=== PATIENT | female | born 1975 | race Caucasian/White ===

== ENCOUNTER 2021-10-26 10:59 | Outpatient (CLI) | payer MEDICARE, SELFPAY ==
[2021-10-26 11:44] LABS: Appearance Urine Clear (Clear); Bilirubin Urine Negative (Negative); Color Urine Yellow (Yellow); Glucose Urine UA 2+ mg/dL (Negative); Ketones Urine Negative (Negative); Leukocyte Esterase Ur Negative LEU/UL (NEGATIVE); Nitrate Urine Negative (Negative); Protein Urine Negative (Negative); Specific Grav Ur 1.025 (1.001-1.035); Urobilinogen Urine 0.2 mg/dL (<2.0); pH Urine 5.5 (5.0-9.0)
[2021-10-26 11:46] LABS: Mucus Urine Rare /lpf; Squamous Epithelial Cell Urine Few /hpf (Few); WBC Urine 0-3 /hpf (0-3)
[2021-10-26 11:50] LABS: Add Urine Microscopic? YES; Blood Urine Trace-Intact (Negative)
== END 2021-10-26 11:00 | disposition home or self-care (01) ==
PROVIDERS: PCP Physician Assistant; Visit Provider Physician Assistant
DX: R30.0 Dysuria (principal)
CPT/HCPCS: 81001; 87086

== ENCOUNTER 2022-04-02 20:23 | Observation (INO) | payer MEDICARE, SELFPAY ==
--- NOTE | ~2022-04-02 | US_ITS ---
EXAMINATION: US pelvic complete DATE: 04/08/2022 10:57 INDICATION: Right ovarian cyst. TECHNIQUE: Multiple transabdominal sonographic images of the pelvis were obtained. COMPARISON: CT abdomen and pelvis 04/03/2022 FINDINGS: The uterus is absent. There is no free fluid in the pelvis. The right ovary measures 5.9 x 2.5 x 2.2 cm. The left ovary measures 2.2 x 1.4 x 1.9 cm. There is a 3 .3 cm cyst in right ovary. There is normal vascular flow in the ovaries. IMPRESSION: 1. 3.3 cm cyst in right ovary, likely a follicular cyst. Reviewed, dictated and finalized at location A. LIANCE ADMINISTRATOR
--- NOTE | ~2022-04-02 | XR_ITS ---
EXAMINATION: XR chest 2V Exam Date/Time: 04/02/2022 21:20 STRATEGIC ACCOUNT EXECUTIVE HISTORY: RIGHT SIDED CHEST PAIN X 1 DAY Comparison: 11/14/2017. RESULT: Lines, tubes, and devices: Bilateral implanted ports both terminating at the cavoatrial junction. Lungs and pleura: Streaky bibasilar opacities, greater on the right, likely representing atelectasis /scar. Cardiomediastinal silhouette: Stable. Other: No acute osseous or upper abdominal finding. IMPRESSION: No acute cardiopulmonary process. Reviewed, dictated and finalized at location K. TEGIC ACCOUNT EXECUTIVE
--- NOTE | ~2022-04-02 | CT_ITS ---
EXAMINATION: CT abdomen pelvis w con DATE: 04/03/2022 02:04 INDICATION: Right chest pain, abdominal pain TECHNIQUE: Computed tomography (CT) of the abdomen and pelvis was performed with 100 CC Omnipaque 350 intravenous contrast. Automated exposure control and iterative reconstruction technique were employe d. Exam dose: 764.73 mGy-cm total exam DLP. COMPARISON: 02/10/2018 CT abdomen pelvis FINDINGS: The lung bases are clear of consolidation. Normal heart size. No pericardial or pleural eff usion. There is hepatic steatosis with minimal sparing around the gallbladder. No hepatic, splenic, pancreat ic, adrenal or renal space-occupying mass lesion is detected. There are small punctate nonobstructing lower pole left renal calculus. The gallbladder is present. No bile duct or pancreatic duct dilatation or pancreatic calcification. No ureteral calculus or hydroureteronephrosis. Approximately 2.8 cm right ovarian cyst or cystic mass. Pelvic ultrasound would be helpful for more d efinitive evaluation of the ovary. Uterus and adnexal areas are otherwise unremarkable. The urinary b ladder appears normal. Atherosclerotic calcification but normal caliber of the abdominal aorta and iliac arteries. No intrap eritoneal or retroperitoneal or pelvic mass lesion or adenopathy or ascites. Mild diverticulosis of left colon; no CT evidence of diverticulitis. No bowel obstruction or intraper itoneal free air. Very small fat-containing umbilical hernia. No suspicious osteolytic or osteoblastic lesions. IMPRESSION: Enlarged right ovary, measuring up to approximately 3.6 x 3.5 cm. Approximately 2.8 cm ri ght ovarian cystic lesion. Pelvic ultrasound would be helpful for more definitive evaluation of the r ight ovary. Diverticulosis of left colon; no CT evidence of diverticulitis Hepatic steatosis Punctate nonobstructing lower pole left renal calculus Reviewed, dictated and finalized at Location A. Reviewed, dictated and finalized at location B. TIONAL EDUCATION TEACHER IMPRESSION: Enlarged right ovary, measuring up to approximately 3.6 x 3.5 cm. A pproximately 2.8 cm right ovarian cystic lesion. Pelvic ultrasound would be hel pful for more definitive evaluation of the right ovary. Diverticulosis of left colon; no CT evidence of diverticulitis Hepatic steatosis Punctate nonobstructing lower pole left renal calculus
--- NOTE | ~2022-04-02 | XR_ITS ---
EXAM: XR Abdomen PICC DATE: 04/04/2022 16:39 HISTORY: femoral picc line placement . COMPARISON: None available. FINDINGS: Dual-lumen right femoral catheter terminating near the iliac bifurcation at the level of L 4. The lung bases are clear. Normal bowel gas pattern. Enlarged liver. Pelvic phleboliths. Degenerati ve change in the lumbar spine. IMPRESSION: Dual-lumen right femoral central line, in good position. Hepatomegaly. Reviewed, dictated and finalized at location K. IMPRESSION: Dual-lumen right femoral central line, in good position. Hepatomega ly.
[2022-04-02 20:27] VITALS: BP 140/79; PULSE 104; RESP 16; TEMP 36.4; O2SAT 98
--- NOTE | 2022-04-02 20:27 | ECG_ITS ---
Measurements Intervals [place] Rate: 96 P: 65 DC: 165 QRS: 79 QRSD: 79 T: 16 QT: 356 QTc: 451 Interpretive Statements SINUS RHYTHM NONSPECIFIC T-WAVE ABNORMALITY NO PREVIOUS ECG AVAILABLE FOR COMPARISON Electronically Signed On 04-03-2022 15:25:04 COUNTY ADMINISTRATOR by Myla Sheffield M.D.
[2022-04-02 20:52] LABS: Basophils Percent Auto 0.4 % (0.2-1.2); Eosinophils Percent Auto 0.5 % (0-4.4); Hematocrit 40.3 % (37.0-47.0); Hemoglobin 14.2 g/dL (12.0-15.0); Immature Granulocyte Absolute 0.05 K/mm3 (0.00-0.031); Immature Granulocyte Percent A 0.6 % (0-0.5); Lymphocytes Absolute Auto 2.31 K/mm3 (0.9-3.2); Lymphocytes Percent Auto 27.1 % (18.3-44.2); Mean Corpuscular HGB Conc 35.2 g/dl (32-36); Mean Corpuscular Hemoglobin 31.4 pg (26-34); Mean Corpuscular Volume 89.2 fl (80-100); Mean Platelet Volume 9.7 fl (7.4-10.4); Monocytes Absolute Auto 0.4 K/mm3 (0.1-0.6); Monocytes Percent Auto 4.9 % (2.6-8.5); Neutrophils Absolute Auto 5.7 K/mm3 (1.3-6.7); Neutrophils Percent Auto 66.5 % (45.5-73.1); Platelet Count Result 275 k/mm3 (150-375); Red Blood Count 4.52 M/mm3 (4.2-5.4); White Blood Count 8.5 K/mm3 (4.5-10.0)
[2022-04-02 21:03] LABS: INR 0.9; Partial Thromboplastin Time 38.7 SECONDS (22.3-36.8); Prothrombin Time 12.1 Seconds (11.1-14.7)
[2022-04-02 21:09] LABS: Alanine Aminotransferase 16 U/L (6-35); Albumin Level 4.7 g/dL (3.5-5.1); Alkaline Phosphatase 85 U/L (38-126); Anion Gap 13 mmol/L (8-16); Aspartate Amino Transferase 24 U/L (14-36); Bilirubin,Total 0.5 mg/dL (0.2-1.3); Blood Urea Nitrogen 15 mg/dL (7-17); Carbon Dioxide 22 mmol/L (22-30); Chloride 99 mmol/L (98-107); Estimated CRCL calculation 84 ml/min; Estimated Glomerular Filt Rate > 60; Glucose 233 mg/dL (65-110); Lipase 111 U/L (23-300); Potassium 4.2 mmol/L (3.4-5.0); Sodium 134 mmol/L (137-145)
[2022-04-02 21:21] LABS: Troponin I < 0.012 ng/mL (0.000-0.034)
[2022-04-03] VITALS (12 sets, daily range): BP systolic 106–140; BP diastolic 64–89; PULSE 70–80; RESP 12–20; TEMP 35.9–36.6; O2SAT 88–100; BMI 31.6
[2022-04-03 01:23] LABS: Troponin I < 0.012 ng/mL (0.000-0.034)
[2022-04-03] MEDS: SODIUM CHLORIDE 0.9% IV 1,000 ML 999 ML IV CONT (01:35)
[2022-04-03] MEDS: ONDANSETRON INJ 4 MG/2 ML VIAL IV PUSH ×2 (01:36→08:40)
[2022-04-03] MEDS: MORPHINE SULFATE (*CRX) 4 MG/ML INJ IV PUSH (01:36)
--- NOTE | 2022-04-03 01:39 | ED.CHESTPAIN ---
HPI - Chest Pain General Chief Complaint: Chest Pain <Natali Duval APRN - Last Filed: 04/03/22 04:37> Stated Complaint: chest pain <Natali Duval MUSIC CATALOGUER - Last Filed: 04/03/22 04:37> Time Seen by Provider: 04/03/22 00:48 <Natali Duval APRN - Last Filed: 04/03/22 04:37> Related Data Home Medications: Home Medications Medication Instructions Recorded Confirmed empagliflozin 25 mg tablet 25 mg PO DAILY 10/20/20 02/02/22 (Jardiance) metformin 500 mg tablet 1,000 mg PO BID 10/20/20 02/02/22 <Natali Duval MUSIC CATALOGUER - Last Filed: 04/03/22 04:37> Allergies/Adverse Reactions: Allergies Allergy/AdvReac Type Severity Reaction Status Date / Time adhesive tape Allergy Mild Rash Verified 04/02/22 09:39 green pepper Allergy Unknown unknown Verified 04/02/22 09:39 <Natali Duval MUSIC CATALOGUER - Last Filed: 04/03/22 04:37> [facility] Past Medical History Medical History: Medical History Allergies Anxiety Chylomicronemia syndrome Headache History of HPV infection Hyperlipemia Lipoprotein deficiency Port-A-Cath in place Thyroid disorder <Natali Duval APRN - Last Filed: 04/03/22 04:37> Surgical History Surgical History: Surgical History H/O LEEP History of conization of cervix History of dilatation and curettage History of exploratory laparotomy History of tonsillectomy S/P appendectomy S/P endometrial ablation S/P partial hysterectomy Tubal ligation status [place] teeth removed <Natali Duval APRN - Last Filed: 04/03/22 04:37> Family History Family History: Family History Other Alcohol abuse Cerebrovascular accident Heart disease History of cancer History of thyroid disorder Hypertension Kidney disorder <Natali Duval APRN - Last Filed: 04/03/22 04:37> Social History Social History: Social History (Updated 04/02/22 @ 09:48 by Jonelle Diaz [facility]) Smoking status: Current every day smoker Tobacco type: cigarettes Alcohol intake: never Substance use: never Substance use type: does not use Lack of Transportation: No Lack of Food: Never True Current Housing: I Have Housing Concerned About Future Housing: No Difficulty Paying Gas/Electric Bills: No Difficulty Paying for Meds: No Currently Unemployed: No Education: Associate Degree Difficulty w/ Childcare or Family Care: No <Natali Duval APRN - Last Filed: 04/03/22 04:37> Course CIGAR ROLLER/PA Physician Supervision I performed the substantive portion of the visit. I reviewed the CIGAR ROLLER or PA documentation, treatment plan, and medical decision making and had [id number] time with this patient. Has history of chronic pancreatitis and also extreme hyperlipidemia. Patient reports it has been sometime since she had her last plasmapheresis plasmapheresis both at [facility] back in 2017 or 2018. Also with frequently at [facility]. [facility] has been contacted for possible transfer currently there are no beds available we have placed a call out to nephrology to discuss the possibility of plasmapheresis locally Case was discussed with nephrology on-call and we are able to perform plasmapheresis locally Case was discussed again with Dr. Velázquez and the patient was accepted to the hospitalist service <Francisco Payne MD - Last Filed: 04/03/22 06:54> Reevaluation(s) Reevaluation #1: Patient still with abdominal pain rated 7/10. Aware of wait for [facility]. Patient also aware of my hospitalist recommending her to be transferred where her physician n is. Report to Dr. Payne and patient care handed over. <Natali Duval APRN - Last Filed: 04/03/22 04:37> Consultations Consultation #1: Consulted Dr. Michaels. Recommends contacting [facility] were patient gets her treatment. <Natali Duval APRN - Last Filed: 1
[2022-04-03] MEDS: HYDROmorphone HCL INJ (*CRX) 1 MG/ML SYR 0.5 MG IV PUSH (03:10)
[2022-04-03 03:30] LABS: Triglycerides 2401 mg/dL (<150)
[2022-04-03] MEDS: HYDROmorphone HCL INJ (*CRX) 1 MG/ML SYR IV PUSH ×4 (05:18→16:31)
[2022-04-03] MEDS: SODIUM CHLORIDE 0.9% IV 1,000 ML 125 ML IV CONT ×3 (07:30→23:13)
[2022-04-03 08:01] LABS: Influenza A QL RT-PCR Negative (Negative); Influenza B QL RT-PCR Negative (Negative); SARS-CoV-2 RNA PCR Negative
--- NOTE | 2022-04-03 09:37 | ADMGEN ---
This patient, Casandra Jones, was admitted to 3 [facility] Surg Room 315-01. Patient/family oriented to hospital policies and general routines including ID bracelet, bed and alarms, visiting hours, pain management, procedures, bathroom and other care routines, personal items, smoking policy, room service/diet, and visiting hours. Information on how to activate the Rapid Response Team has been discussed. Patient/Family are encouraged to report perceived risks to care and to ask questions if they do not understand what they are told or what they should do.
--- NOTE | 2022-04-03 10:35 | PM.CNNEP ---
Assessment and Plan Assessment and plan (1) Hypertriglyceridemia: Code(s): E78.1 - Pure hyperglyceridemia Status: Acute Assessment and Plan: patient has hypertriglyceridemia. Currently her levels over 2000 she is having some symptoms. I agree that plasmapheresis is indicated. There is really no other way this level comes down. I am concerned that she developed a rash after her plasmapheresis in the spring but am encouraged that EpiPen plus Benadryl seem to help. I have put a call into the plasmapheresis division at [facility] to see this specifics of what they did. I will call plasmapheresis locally and initiated treatment. (2) Acute generalized abdominal pain: Code(s): R10.84 - Generalized abdominal pain Status: Acute Assessment and Plan: The patient has abdominal discomfort. CT scan did not show any problems with the pancreas. Her lipase level is okay. Will check another lipase tomorrow. (3) Diabetes mellitus: Qualifiers: Diabetes mellitus type: type 2 Diabetes mellitus correction insulin use: without correction use Diabetes mellitus complication status: with hyperglycemia Qualified Code(s): E11.65 - Type 2 diabetes mellitus with hyperglycemia Code(s): E11.9 - Type 2 diabetes mellitus without complications Status: Acute Assessment and Plan: Management per hospitalists. (4) Tobacco use: Code(s): Z72.0 - Tobacco use Status: Acute Assessment and Plan: The patient should stop smoking History of Present Illness Reason for Consult Consult date: 04/03/22 Chief Complaint Chief complaint: Chylomicronemia Syndrome/Abdominal Pain History of Present Illness Narrative: Casandra is a very pleasant 46-year-old lady who has multiple medical problems including severe hypertriglyceridemia, recurrent pancreatitis, migraines, obesity, carpal tunnel syndrome, nephrolithiasis, diabetes, depression, anxiety, hypothyroidism. The patient is seen at [facility] by Dr. Gates for her hypertriglyceridemia. She has been getting plasmapheresis intermittently for years. In this spring she had few plasmaphereses in a row. She developed a reaction consisting of a rash and itching as well as chest pain. This is felt to be a reaction to the albumin given during the treatment. After that apparently they gave her an EpiPen shot and Benadryl and she tolerated the plasmapheresis twice more after that. she has not had any more treatments since then. She says that she gets occasional triglyceride levels and if it is above 2000 she gets a treatment. She says she feels like the levels have been rising for the last few weeks because she has had intermittent nausea with epigastric discomfort. She came to the ER today because she had chest pain and her epigastric pain was worse. This happened over the last 24-48 hours. She also has nausea with this. She has no diarrhea or constipation. She has not vomited. she says her chest pain is intermittent. It often happens along with her abdominal pain. The patient was seen in the emergency room. Labs were checked. Her cbc and electrolytes were all okay. Her lipase was normal but her triglyceride was 08/16/2000. She is being admitted. She needs plasmapheresis. Review of Systems Constitutional: Constitutional: Reports no additional constitutional complaints Eyes: Eyes: Reports no additional eye complaints ENT: Reports system reviewed and no additional complaints, except as documented Cardiovascular: Cardiovascular: Reports no additional cardiovascular complaints Respiratory: Respiratory: Reports no additional respiratory complaints Gastrointestinal: Gastrointestinal: Reports no additional gastrointestinal complaints Genitourinary: Genitourinary: Reports no additional female genitourinary complaints Musculoskeletal: Musculoskeletal: Reports no additional musculoskeletal complaints
[2022-04-03 11:26] LABS: Glucose Point of Care 162 mg/dl (65-105)
--- NOTE | 2022-04-03 11:45 | PC.NURSE ---
Na level of [address] baca
--- NOTE | 2022-04-03 13:44 | PM.IMHP ---
H&P: HPI History of Present Illness Date/Time: 04/03/22 13:44 Chief Complaint: chest pain/abdominal pain Narrative: this is a 46-year-old female who presents to the ER today with complaints of chest pain and abdominal pain that started since last night. She reports she intermittently get this symptoms on and off and reports these are mostly related to her hypertriglyceridemia. She had similar episode back in August and was in the hospital where they did the plasma pheresis. She does not recall what her triglyceride level at that time was but at the time of discharge she was down to 300s. She usually goes to [facility] for this. She has been needing plasmapheresis intermittently for several years now. His associated nausea but no vomiting. Chest pain is sharp stabbing quality in the right side of the chest also radiates to the left side of the chest at times She was evaluated in the ER her CBC was normal. CMP was normal with negative troponin. Her triglyceride level came back at 2401. Lipase was normal. Chest x-ray with no acute cardiopulmonary process. CT abdomen pelvis with enlarged right ovary measuring up to approximately 3.6 x 3.5 cm proximally 2.8 cm right ovarian cystic lesion pelvic ultrasound will be helpful for more definitive evaluation of the right ovary. There was noted diverticulosis of the left colon with no CT evidence of diverticulitis. Hepatic steatosis and punctate nonobstructing lower pole left renal calculus. It was suspected her symptoms are related to severe hyper triglyceridemia and was planned to be transferred to [facility] however no bed was available. Nephrology was contacted after that and the apheresis could be done here and hence she is getting admitted over here for further treatment.. Review of Systems Review of Systems: - CONSTITUTIONAL: Denies weight loss, fever and chills. - HEENT: Denies changes in vision and hearing - RESPIRATORY: reports some SOB and no cough. - CV: Denies palpitations and reports CP. - GI: reports abdominal pain, nausea, deniesvomiting and diarrhea. - : Denies dysuria and urinary frequency. - MSK: reports myalgia and joint pain. - SKIN: Denies rash and pruritus. - NEUROLOGICAL: reports headache and syncope. - PSYCHIATRIC: Denies recent changes in mood. Denies anxiety and depression. [facility] Past Medical History Medical History (Updated 04/03/22 @ 13:51 by Froilan Manrique MD) Allergies Anxiety Chylomicronemia syndrome Headache History of HPV infection Hyperlipemia Hypertriglyceridemia Lipoprotein deficiency Port-A-Cath in place Thyroid disorder Surgical History Surgical History H/O LEEP History of conization of cervix History of dilatation and curettage History of exploratory laparotomy History of tonsillectomy S/P appendectomy S/P endometrial ablation S/P partial hysterectomy Tubal ligation status [place] teeth removed Family History Family History Other Alcohol abuse Cerebrovascular accident Heart disease History of cancer History of thyroid disorder Hypertension Kidney disorder Social History Social History Smoking packs per day: 1 Smoking cigarettes per day: 20.0 Years smoked: 20 Smoking pack-years: 20.00 Smoking status: Current every day smoker Tobacco type: cigarettes Alcohol intake: never Substance use: never Substance use type: does not use Lack of Transportation: No Lack of Food: Never True Current Housing: I Have Housing Concerned About Future Housing: No Difficulty Paying Gas/Electric Bills: No Difficulty Paying for Meds: No Currently Unemployed: No Education: Associate Degree Difficulty w/ Childcare or Family Care: No Spiritual care concerns: No Meds Home Medications and Allergies Home Me
[2022-04-03 16:44] LABS: Glucose Point of Care 163 mg/dl (65-105)
[2022-04-03] MEDS: diphenhydrAMINE HCl INJ 50 MG/ML VIAL 25 MG IV PUSH (17:39)
[2022-04-03 23:24] LABS: Glucose Point of Care 165 mg/dl (65-105)
[2022-04-04] MEDS: HYDROmorphone HCL INJ (*CRX) 1 MG/ML SYR IV PUSH ×5 (03:54→21:08)
[2022-04-04 05:20] LABS: Glucose Point of Care 152 mg/dl (65-105)
[2022-04-04] MEDS: LEVOTHYROXINE SODIUM INJ 100 MCG/5 ML VIAL IV PUSH (05:36)
[2022-04-04 06:00] VITALS: BP 136/83; PULSE 81; RESP 14; TEMP 36.6; O2SAT 93
--- NOTE | 2022-04-04 07:04 | PM.PNNEP ---
Progress Note: A&P Assessment and Plan (1) Hypertriglyceridemia: Code(s): E78.1 - Pure hyperglyceridemia Status: Acute Assessment and Plan: patient has hypertriglyceridemia. Currently her levels over 1999 she is having some symptoms. I agree that plasmapheresis is indicated. she has 2 power port. This is what the use for the plasmapheresis. Unfortunately she did not go to have these flushed on a monthly basis to [facility]. Therefore the plasmapheresis unit will not use these unless they were checked out. Yesterday weak asked surgery to do this but they do not do this. So we are asking interventional Radiology to check the ports out to make sure that they are open. Hopefully this will happen this morning and we can get some plasmapheresis this afternoon. She had a rash after 1 episode of plasmapheresis at [facility]. I called the blood donor unit there who does this service. She had 1 session where they used a certain brand of albumin. They generally do not use this brand. The patient did develop a rash and some chest pain. She went to the ER. They gave her an injection of epinephrine and she improved rapidly. She has had a couple more treatments since then and she had no problems because the use the former brand of albumin. I called the pharmacy and they have albumin that is not the Brand in question that cause the rash. The patient is already getting some Benadryl. If she does develop a rash we can give her some Hydrocortisone. (2) Acute generalized abdominal pain: Code(s): R10.84 - Generalized abdominal pain Status: Acute Assessment and Plan: The patient has abdominal discomfort. CT scan did not show any problems with the pancreas. Her lipase level is okay. Will check another lipase tomorrow. (3) Diabetes mellitus: Qualifiers: Diabetes mellitus type: type 2 Diabetes mellitus residential insulin use: without residential use Diabetes mellitus complication status: with hyperglycemia Qualified Code(s): E11.65 - Type 2 diabetes mellitus with hyperglycemia Code(s): E11.9 - Type 2 diabetes mellitus without complications Status: Acute Assessment and Plan: Management per hospitalists. (4) Tobacco use: Code(s): Z72.0 - Tobacco use Status: Acute Assessment and Plan: The patient should stop smoking Subjective Date/time seen: 04/04/22 07:04 Interval history: Patient feels pretty well. She slept well. She still has some smoldering abdominal discomfort. Review of Systems Cardiovascular: Cardiovascular: Reports no additional cardiovascular complaints Respiratory: Respiratory: Reports no additional respiratory complaints Gastrointestinal: Gastrointestinal: Reports no additional gastrointestinal complaints Genitourinary: Genitourinary: Reports no additional female genitourinary complaints Exam Narrative: WDWN in NAD skin no rash head ncat lungs clear cor reg no rub abd BS+ Mildly tender and soft ext no edema. Objective Data Vital Signs Vital Signs: Vital Signs - 24 hr 04/03/22 07:13 04/03/22 09:05 04/03/22 13:56 Temperature 96.7 F L Pulse Rate 70 75 72 Respiratory Rate 12 12 20 Blood Pressure 140/83 106/76 116/74 Pulse Oximetry 100 99 93 Oxygen Delivery 04/03/22 19:46 04/03/22 22:00 04/04/22 06:00 Temperature 97.8 F 97.8 F Pulse Rate 79 81 Respiratory Rate 14 14 Blood Pressure 121/64 136/83 Pulse Oximetry 93 95 93 Oxygen Delivery Room Air Intake/Output Intake/Output: Intake & Output 04/01/22 04/02/22 04/03/22 04/04/22 23:59 23:59 23:59 23:59 Intake Total 4118 500 Output Total 2300 1600 Balance 1818 -1100 Meds/Results Medications: Active Medications Generic Name Dose Route Start Last Admin Trade Name Freq PRN Reason Stop Dose Admin Bupropion HCl 150 mg 04/04/22 09:00 Bupropion Hcl Xl (24 Hr) 150 Mg Tabcr PO DAILY [facility] Celec
[2022-04-04 07:40] LABS: Glucose Point of Care 153 mg/dl (65-105)
--- NOTE | 2022-04-04 08:15 | PM.IMPN ---
Progress Note: A&P Assessment and Plan (1) Acute generalized abdominal pain: Code(s): R10.84 - Generalized abdominal pain Status: Acute Assessment and Plan: Likely secondary to hypertriglyceridemia, needs plasmapheresis difficulty accessing apheresis ports Consult to interventional radiology pending (2) Hypertriglyceridemia: Code(s): E78.1 - Pure hyperglyceridemia Status: Acute Assessment and Plan: History of intermittent plasmapheresis over the last several years, triglyceride level 2401 Nephrology consultation for plasmapheresis History of familial hypertriglyceridemia, chilomicronemia and recurrent pancreatitis (3) Chest pain: Code(s): R07.9 - Chest pain, unspecified Status: Acute Assessment and Plan: Do not suspect cardiac etiology, monitor EKG nonspecific, troponins negative (4) Diabetes mellitus: Qualifiers: Diabetes mellitus complication status: with hyperglycemia Diabetes mellitus fdc insulin use: without intermediate school teacher use Diabetes mellitus type: type 2 Qualified Code(s): E11.65 - Type 2 diabetes mellitus with hyperglycemia Code(s): E11.9 - Type 2 diabetes mellitus without complications Status: Acute Assessment and Plan: A1c pending,, Accu-Cheks and sliding scale insulin Continue Lantus 35 units twice daily Hold metformin, continue Jardiance (5) Obesity (BMI 30.0-34.9): Code(s): E66.9 - Obesity, unspecified Status: Acute (6) Major depressive disorder: Qualifiers: Active/Remission status: currently active Major depression episode severity: mild Major depression recurrence: recurrent Qualified Code(s): F33.0 - Major depressive disorder, recurrent, mild Code(s): F32.9 - Major depressive disorder, single episode, unspecified Status: Acute Assessment and Plan: Continue home medications, stable (7) Anxiety: Code(s): F41.9 - Anxiety disorder, unspecified Status: Acute Assessment and Plan: As above Plan DVT prophylaxis with Lovenox GI prophylaxis with PPI Code status full code Transfer to [facility] pending, no bed available Subjective Date/time seen: 04/04/22 08:15 Interval history: No overnight events noted. No shortness of breath. No nausea, vomiting or diarrhea. No fevers or chills. Patient complaining of chest pressure and abdominal pain. Stable on room air. Review of Systems Review of Systems: 12 point review of systems was assessed and was negative except as noted in the HPI Exam Narrative: General: No acute distress, alert and oriented per baseline HEENT: Atraumatic, normocephalic, mucous membranes moist CV: Regular rate and rhythm, S1, S2 Lungs: Clear to auscultation bilaterally, no rales or crackles noted, no wheezes, good air entry Abdomen: Soft, diffusely tender to palpation Extremities: Normal to inspection Skin: No rashes noted, no lesions or wounds seen Psych: Euthymic, normal affect Objective Data Vital Signs Vital Signs: Vital Signs - 24 hr 04/03/22 09:05 04/03/22 13:56 04/03/22 19:46 Temperature 96.7 F L Pulse Rate 75 72 Respiratory Rate 12 20 Blood Pressure 106/76 116/74 Pulse Oximetry 99 93 93 Oxygen Delivery Room Air 04/03/22 22:00 04/04/22 06:00 Temperature 97.8 F 97.8 F Pulse Rate 79 81 Respiratory Rate 14 14 Blood Pressure 121/64 136/83 Pulse Oximetry 95 93 Oxygen Delivery Intake/Output Intake/Output: Intake & Output 04/01/22 04/02/22 04/03/22 04/04/22 23:59 23:59 23:59 23:59 Intake Total 4118 500 Output Total 2300 1600 Balance 1818 -1100 Meds/Results Medications: Active Medications Generic Name Dose Route Start Last Admin Trade Name Freq PRN Reason Stop Dose Admin Bupropion HCl 150 mg 04/04/22 09:00 Bupropion Hcl Xl (24 Hr) 150 Mg Tabcr PO DAILY RAPHAEL Celecoxib 200 mg 04/04/22 09:00 Celecoxib 200 Mg Capsule PO DAILY RAPHAEL Citalopr
[2022-04-04 08:51] LABS: Basophils Percent Auto 0.4 % (0.2-1.2); Eosinophils Percent Auto 0.4 % (0-4.4); Hematocrit 35.8 % (37.0-47.0); Hemoglobin 11.9 g/dL (12.0-15.0); Immature Granulocyte Absolute 0.07 K/mm3 (0.00-0.031); Lymphocytes Absolute Auto 2.09 K/mm3 (0.9-3.2); Lymphocytes Percent Auto 29.8 % (18.3-44.2); Mean Corpuscular HGB Conc 33.2 g/dl (32-36); Mean Corpuscular Hemoglobin 29.7 pg (26-34); Mean Corpuscular Volume 89.3 fl (80-100); Mean Platelet Volume 9.1 fl (7.4-10.4); Monocytes Absolute Auto 0.5 K/mm3 (0.1-0.6); Monocytes Percent Auto 6.4 % (2.6-8.5); Neutrophils Absolute Auto 4.4 K/mm3 (1.3-6.7); Platelet Count Result 201 k/mm3 (150-375); Red Blood Count 4.01 M/mm3 (4.2-5.4); Red Cell Distribution Width 15.9 % (11.5-14.5)
[2022-04-04 08:57] LABS: Lipase 52 U/L (23-300)
[2022-04-04 09:08] LABS: Alanine Aminotransferase 11 U/L (6-35); Albumin Level 3.9 g/dL (3.5-5.1); Alkaline Phosphatase 58 U/L (38-126); Anion Gap 5 mmol/L (8-16); Aspartate Amino Transferase 19 U/L (14-36); Bilirubin,Total 0.3 mg/dL (0.2-1.3); Blood Urea Nitrogen 5 mg/dL (7-17); Calcium 7.5 mg/dL (8.4-10.2); Carbon Dioxide 27 mmol/L (22-30); Chloride 100 mmol/L (98-107); Estimated CRCL calculation 108 ml/min; Estimated Glomerular Filt Rate > 60; Glucose 122 mg/dL (65-110); Potassium 3.5 mmol/L (3.4-5.0); Sodium 132 mmol/L (137-145)
[2022-04-04 09:09] LABS: Triglycerides 1520 mg/dL (<150)
[2022-04-04] MEDS: diphenhydrAMINE HCl CAP 25 MG CAPSULE PO (09:46)
[2022-04-04] MEDS: ROSUVASTATIN 10 MG TABLET 20 MG PO (09:48)
[2022-04-04] MEDS: EMPAGLIFLOZIN 25 MG TABLET PO (09:49)
[2022-04-04] MEDS: CITALOPRAM HYDROBROMIDE 20 MG TABLET 40 MG PO (09:49)
[2022-04-04] MEDS: FENOFIBRATE NANOCRYSTALLIZED 145 MG TABLET PO (09:50)
[2022-04-04] MEDS: PANTOPRAZOLE 40 MG TABLET PO (09:50)
[2022-04-04] MEDS: buPROPion HCL XL (24 HR) 150 MG TABCR PO (09:50)
[2022-04-04] MEDS: CELECOXIB 200 MG CAPSULE PO (09:50)
[2022-04-04 11:32] LABS: Glucose Point of Care 145 mg/dl (65-105)
[2022-04-04] MEDS: SODIUM CHLORIDE 0.9% IV 1,000 ML 125 ML IV CONT ×2 (12:55→21:09)
[2022-04-04 13:49] VITALS: BP 115/83; PULSE 77; RESP 14; TEMP 36.9; O2SAT 92
[2022-04-04 16:49] LABS: Glucose Point of Care 151 mg/dl (65-105)
--- NOTE | 2022-04-04 17:06 | W.PM.PROC2 ---
Procedure Note - Detailed Date of Procedure 04/04/22 Pre-op Diagnosis 1. Chylomicronemia Syndrome/Abdominal Pain 2. Need for alternate central venous access Post-op Diagnosis Same Procedure Performed ultrasound-guided placement of right femoral central venous line ( dual lumen dialysis catheter with central pigtail) 24 cm 12 Guatem[place] Surgeon Hugo Zuniga MD Examiner Rating Clerk Tameka, patient's floor RN Anesthesia Local ( using 1% xylocaine) Indications this patient is a pleasant 46-year-old unfortunate female who apparently has very high triglycerides. She periodically apparently has needed plasmapheresis to reduce this otherwise she has chest pains and other problems. (See H&P and nephrology note for further details). Patient has indwelling bilateral buried Bard high-flow port catheters. However the last time these were accessed was approximately November of this year. Patient knew that she was supposed to have them accessed at least once a month to be flushed but has not done so. Therefore, since we do not have the proper equipment to access these and even if accessed a fluoroscopic dye study would be needed to be sure that they can be used without dislodging clot around the ends of the catheters it was decided that the patient would be best served by having placement of a separate temporary percutaneous femoral line to get urgent plasmapheresis. Then on a more relaxed basis she can follow up with the physicians at [facility] in [place] who placed these Bard high-flow ports and have studies to confirm that they can be used again. Therefore, the risks benefits possible complications of placement of a right femoral central line to use for plasmapheresis not limited to but including bleeding, infection, possible poor flow within the catheter and not able to do plasmapheresis as fast as usual have all been discussed with the patient and she wishes to proceed. Patient signed written consent and gave verbal consent. Findings Normal vascular anatomy in the right groin by ultrasound Description of Procedure After obtaining appropriate written consent for central line placement, time-out was performed and we placed the patient in the supine position with the head flat in the hospital bed. Following this the entire right groin area was prepped with chlorhexidine. a time-out was performed with the nurse assisting. I put on full protective /Sterile gear including mask with a plastic face guard, gown, gloves, and hat. Then a large sterile drape was applied over the area with a hole at the site of the drape on the right groin level. Following this the ultrasound probe was draped. I did place some gel within the sterile plastic covering for the probe. A small amount of gel was then placed in the patient's right groin near the right groin crease. Imaging on the right side I was able to image both the femoral artery and the right femoral vein. I then injected local anesthetic using 1% plain lidocaine in the area of proposed insertion. Using an 18 gauge cook needle I cannulated the right Femoral vein under direct vision with the US, good dark blood was able to be aspirated, and a guidewire was passed without difficulty to 30 centimeters. Following this, usual Seldinger technique was used to place the central line catheter which was a triple lumen ( 24 cm long 12 Guatemalan with 2 large lumens for plasmapheresis and a pigtail for IV fluids or other use.. This was done by carefully placing more local anesthetic at the exit site of the wire and around it. An eleven blade knife was used to make a small slit next . The two provided dilators were passed followed by the catheter up to its hub at 23 - 24 centimeters at the skin level. Following this It was was sutured to the patient's right groin area with 2 2-0 nylon sutures through the eyelets at the hub of the catheter. An antibiotic impregnated split 2 x 2 gauze provided in the kit was applied at the exit site.
[2022-04-04] MEDS: traZODone HCL 50 MG TABLET 100 MG PO (20:31)
[2022-04-04 21:44] LABS: Glucose Point of Care 126 mg/dl (65-105)
[2022-04-04 22:00] VITALS: BP 154/87; PULSE 74; RESP 18; TEMP 36.1; O2SAT 96
[2022-04-05] MEDS: HYDROmorphone HCL INJ (*CRX) 1 MG/ML SYR IV PUSH ×7 (00:32→20:10)
[2022-04-05] MEDS: diphenhydrAMINE HCl CAP 25 MG CAPSULE PO (00:35)
[2022-04-05] MEDS: SODIUM CHLORIDE 0.9% IV 1,000 ML 125 ML IV CONT ×3 (05:30→21:08)
[2022-04-05 06:00] VITALS: BP 143/87; PULSE 72; RESP 17; TEMP 36.1; O2SAT 95
[2022-04-05 07:03] LABS: Glucose Point of Care 113 mg/dl (65-105)
[2022-04-05] MEDS: LEVOTHYROXINE SODIUM INJ 100 MCG/5 ML VIAL IV PUSH (07:07)
[2022-04-05 07:13] LABS: Basophils Percent Auto 0.4 % (0.2-1.2); Eosinophils Percent Auto 0.6 % (0-4.4); Hematocrit 37.5 % (37.0-47.0); Hemoglobin 12.5 g/dL (12.0-15.0); Immature Granulocyte Absolute 0.05 K/mm3 (0.00-0.031); Immature Granulocyte Percent A 0.7 % (0-0.5); Lymphocytes Absolute Auto 1.82 K/mm3 (0.9-3.2); Lymphocytes Percent Auto 25.7 % (18.3-44.2); Mean Corpuscular HGB Conc 33.3 g/dl (32-36); Mean Corpuscular Hemoglobin 29.6 pg (26-34); Mean Corpuscular Volume 88.7 fl (80-100); Mean Platelet Volume 9.5 fl (7.4-10.4); Monocytes Absolute Auto 0.5 K/mm3 (0.1-0.6); Monocytes Percent Auto 7.6 % (2.6-8.5); Neutrophils Absolute Auto 4.6 K/mm3 (1.3-6.7); Platelet Count Result 224 k/mm3 (150-375); Red Blood Count 4.23 M/mm3 (4.2-5.4); Red Cell Distribution Width 15.7 % (11.5-14.5); White Blood Count 7.1 K/mm3 (4.5-10.0)
[2022-04-05 07:31] LABS: Alanine Aminotransferase 13 U/L (6-35); Albumin Level 4.3 g/dL (3.5-5.1); Alkaline Phosphatase 72 U/L (38-126); Anion Gap 7 mmol/L (8-16); Aspartate Amino Transferase 21 U/L (14-36); Bilirubin,Total 0.6 mg/dL (0.2-1.3); Blood Urea Nitrogen 6 mg/dL (7-17); Calcium 8.2 mg/dL (8.4-10.2); Carbon Dioxide 26 mmol/L (22-30); Chloride 102 mmol/L (98-107); Estimated CRCL calculation 108 ml/min; Estimated Glomerular Filt Rate > 60; Glucose 112 mg/dL (65-110); Potassium 3.3 mmol/L (3.4-5.0); Sodium 135 mmol/L (137-145)
[2022-04-05 08:15] LABS: Glucose Point of Care 110 mg/dl (65-105)
[2022-04-05] MEDS: CELECOXIB 200 MG CAPSULE PO (08:25)
[2022-04-05] MEDS: PANTOPRAZOLE 40 MG TABLET PO (08:25)
[2022-04-05] MEDS: ROSUVASTATIN 10 MG TABLET 20 MG PO (08:25)
[2022-04-05] MEDS: FENOFIBRATE NANOCRYSTALLIZED 145 MG TABLET PO (08:25)
[2022-04-05] MEDS: EMPAGLIFLOZIN 25 MG TABLET PO (08:25)
[2022-04-05] MEDS: buPROPion HCL XL (24 HR) 150 MG TABCR PO (08:25)
[2022-04-05] MEDS: CITALOPRAM HYDROBROMIDE 20 MG TABLET 40 MG PO (08:25)
[2022-04-05 09:00] LABS: Triglycerides 1523 mg/dL (<150)
[2022-04-05 10:38] VITALS: BP 113/84; PULSE 83; RESP 18; TEMP 36.3; O2SAT 97
[2022-04-05] MEDS: diphenhydrAMINE HCl INJ 50 MG/ML VIAL 25 MG IV PUSH (10:38)
[2022-04-05] MEDS: CALCIUM GLUC 2,000 MG/NS 100ML 2,000 MG/100 ML BAG 100 MG IVPB (10:38)
[2022-04-05 11:00] VITALS: BP 145/88; PULSE 72; RESP 18
[2022-04-05 12:00] VITALS: BP 105/69; PULSE 81; RESP 18; TEMP 36.4
[2022-04-05] MEDS: HEPARIN SODIUM, PORCINE 10,000 UNITS/10 ML VIAL 1000 UNITS IV PUSH (12:00)
[2022-04-05 12:15] LABS: Glucose Point of Care 120 mg/dl (65-105)
--- NOTE | 2022-04-05 12:56 | PM.IMPN ---
Progress Note: A&P Assessment and Plan (1) Acute generalized abdominal pain: Code(s): R10.84 - Generalized abdominal pain Status: Acute Assessment and Plan: Secondary to hypertriglyceridemia, improving, recheck triglycerides after plasmapheresis treatment today Anticipate discharge tomorrow (2) Hypertriglyceridemia: Code(s): E78.1 - Pure hyperglyceridemia Status: Acute Assessment and Plan: History of intermittent plasmapheresis over the last several years, triglyceride level 2401 Nephrology consultation for plasmapheresis History of familial hypertriglyceridemia, chilomicronemia and recurrent pancreatitis (3) Chest pain: Code(s): R07.9 - Chest pain, unspecified Status: Acute Assessment and Plan: Resolved (4) Diabetes mellitus: Qualifiers: Diabetes mellitus complication status: with hyperglycemia Diabetes mellitus penitentiary insulin use: without penitentiary use Diabetes mellitus type: type 2 Qualified Code(s): E11.65 - Type 2 diabetes mellitus with hyperglycemia Code(s): E11.9 - Type 2 diabetes mellitus without complications Status: Acute Assessment and Plan: A1c pending,, Accu-Cheks and sliding scale insulin Continue Lantus 35 units twice daily Hold metformin, continue Jardiance (5) Obesity (BMI 30.0-34.9): Code(s): E66.9 - Obesity, unspecified Status: Acute (6) Major depressive disorder: Qualifiers: Active/Remission status: currently active Major depression episode severity: mild Major depression recurrence: recurrent Qualified Code(s): F33.0 - Major depressive disorder, recurrent, mild Code(s): F32.9 - Major depressive disorder, single episode, unspecified Status: Acute Assessment and Plan: Continue home medications, stable (7) Anxiety: Code(s): F41.9 - Anxiety disorder, unspecified Status: Acute Assessment and Plan: As above Plan DVT prophylaxis with Lovenox GI prophylaxis with PPI Code status full code Transfer to [facility] [place] with attempted at admission, no bed available Subjective Date/time seen: 04/05/22 12:56 Interval history: No overnight events noted. No chest pain or shortness of breath. No vomiting or diarrhea. No fevers or chills. She states her chest pain is resolved, still with some nausea and abdominal pain, improving. Currently getting plasmapheresis treatment through the femoral line placed yesterday. Tolerating treatment well. Review of Systems Review of Systems: 12 point review of systems was assessed and was negative except as noted in the HPI Exam Narrative: General: No acute distress, alert and oriented per baseline HEENT: Atraumatic, normocephalic, mucous membranes moist CV: Regular rate and rhythm, S1, S2 Lungs: Clear to auscultation bilaterally, no rales or crackles noted, no wheezes, good air entry Abdomen: Soft, nontender, nondistended Extremities: Normal to inspection Skin: No rashes noted, no lesions or wounds seen Psych: Euthymic, normal affect Objective Data Vital Signs Vital Signs: Vital Signs - 24 hr 04/04/22 13:49 04/04/22 22:00 04/04/22 20:00 Temperature 98.4 F 96.9 F L Pulse Rate 77 74 Respiratory Rate 14 18 Blood Pressure 115/83 154/87 H Pulse Oximetry 92 96 Oxygen Delivery Room Air 04/05/22 06:00 04/05/22 10:38 04/05/22 11:00 Temperature 97 F L 97.4 F L Pulse Rate 72 83 72 Respiratory Rate 17 18 18 Blood Pressure 143/87 H 113/84 145/88 H Pulse Oximetry 95 97 Oxygen Delivery 04/05/22 12:00 Temperature 97.5 F L Pulse Rate 81 Respiratory Rate 18 Blood Pressure 105/69 Pulse Oximetry Oxygen Delivery Intake/Output Intake/Output: Intake & Output 04/02/22 04/03/22 04/04/22 04/05/22 23:59 23:59 23:59 23:59 Intake Total 4118 2800 2220 Output Total 2300 3300 1350 Balance 1818 -500 870 Meds/Results Medications: Active Medications Generic Name Dose
[2022-04-05 14:28] VITALS: BP 122/76; PULSE 83; RESP 18; TEMP 36.2; O2SAT 97
[2022-04-05] MEDS: ONDANSETRON INJ 4 MG/2 ML VIAL IV PUSH (14:39)
[2022-04-05 17:12] LABS: Glucose Point of Care 120 mg/dl (65-105)
--- NOTE | 2022-04-05 17:39 | PM.PNNEP ---
Progress Note: A&P Assessment and Plan (1) Hypertriglyceridemia: Code(s): E78.1 - Pure hyperglyceridemia Status: Acute Assessment and Plan: patient has hypertriglyceridemia. her level this morning was down to 1500. Possibly because her sugar has been better. She received plasmapheresis this morning. Most likely her triglyceride levels will be triple digit tomorrow. If so she can be discharged. I told her that she should follow-up with Dr. Gates for management of her triglycerides over at [facility] and follow-up with Interventional Radiology at [facility] to make sure that her power ports are working. (2) Acute generalized abdominal pain: Code(s): R10.84 - Generalized abdominal pain Status: Acute Assessment and Plan: Improved (3) Diabetes mellitus: Qualifiers: Diabetes mellitus type: type 2 Diabetes mellitus medical terminologist insulin use: without medical terminologist use Diabetes mellitus complication status: with hyperglycemia Qualified Code(s): E11.65 - Type 2 diabetes mellitus with hyperglycemia Code(s): E11.9 - Type 2 diabetes mellitus without complications Status: Acute Assessment and Plan: Management per hospitalists. she has not required any insulin (4) Tobacco use: Code(s): Z72.0 - Tobacco use Status: Acute Assessment and Plan: The patient should stop smoking Subjective Date/time seen: 04/05/22 17:39 Interval history: 04/04 Patient feels pretty well. She slept well. She still has some smoldering abdominal discomfort. 04/05 Casandra is feeling better. Plasmapheresis this morning. Exam Narrative: WDWN in NAD skin no rash head ncat lungs clear cor reg no rub abd BS+ Barely tender and soft ext no edema. Objective Data Vital Signs Vital Signs: Vital Signs - 24 hr 04/04/22 22:00 04/04/22 20:00 04/05/22 06:00 Temperature 96.9 F L 97 F L Pulse Rate 74 72 Respiratory Rate 18 17 Blood Pressure 154/87 H 143/87 H Pulse Oximetry 96 95 Oxygen Delivery Room Air 04/05/22 10:38 04/05/22 11:00 04/05/22 12:00 Temperature 97.4 F L 97.5 F L Pulse Rate 83 72 81 Respiratory Rate 18 18 18 Blood Pressure 113/84 145/88 H 105/69 Pulse Oximetry 97 Oxygen Delivery 04/05/22 14:28 Temperature 97.1 F L Pulse Rate 83 Respiratory Rate 18 Blood Pressure 122/76 Pulse Oximetry 97 Oxygen Delivery Intake/Output Intake/Output: Intake & Output 04/02/22 04/03/22 04/04/22 04/05/22 23:59 23:59 23:59 23:59 Intake Total 4118 2800 2220 Output Total 2300 3300 1350 Balance 1818 -500 870 Meds/Results Medications: Active Medications Generic Name Dose Route Start Last Admin Trade Name Freq PRN Reason Stop Dose Admin Bupropion HCl 150 mg 04/04/22 09:00 04/05/22 08:25 Bupropion Hcl Xl (24 Hr) 150 Mg Tabcr PO 150 mg DAILY RAPHAEL Administration Celecoxib 200 mg 04/04/22 09:00 04/05/22 08:25 Celecoxib 200 Mg Capsule PO 200 mg DAILY RAPHAEL Administration Citalopram Hydrobromide 40 mg 04/04/22 09:00 04/05/22 08:25 Citalopram Hydrobromide 20 Mg Tablet PO 40 mg DAILY RAPHAEL Administration Dextrose 12.5 gm 04/03/22 15:35 Dextrose 50% 25 Gm/50 Ml Syringe IV PUSH PRN PRN Hypoglycemia Protocol Diphenhydramine HCl 25 mg 04/03/22 17:26 04/05/22 00:35 Diphenhydramine Hcl Cap 25 Mg Capsule PO 25 mg Q6H PRN Administration Itching Empagliflozin 25 mg 04/04/22 09:00 04/05/22 08:25 Empagliflozin 25 Mg Tablet PO 25 mg DAILY RAPHAEL Administration Fenofibrate 145 mg 04/04/22 09:00 04/05/22 08:25 Fenofibrate Nanocrystallized 145 Mg Tablet PO 145 mg DAILY RAPHAEL Administration Glucagon 1 mg 04/03/22 15:35 Glucagon For Inj 1 Mg Vial IM PRN PRN Hypoglycemia Protocol Glucose 15 gm 04/03/22 15:35 Glucose Oral Gel 15 Gm Of Glucse In 37.5 Gm Tube PO PRN PRN Hypoglycemia Protocol Hydromorphone HC
[2022-04-05] MEDS: traZODone HCL 50 MG TABLET 100 MG PO (20:10)
[2022-04-05 20:28] LABS: Glucose Point of Care 123 mg/dl (65-105)
[2022-04-05 22:00] VITALS: BP 135/71; PULSE 85; RESP 18; TEMP 36.2; O2SAT 95
[2022-04-06] MEDS: HYDROmorphone HCL INJ (*CRX) 1 MG/ML SYR IV PUSH ×7 (01:46→20:59)
[2022-04-06] MEDS: SODIUM CHLORIDE 0.9% IV 1,000 ML 125 ML IV CONT ×3 (05:04→21:28)
[2022-04-06 06:00] VITALS: BP 117/78; PULSE 81; RESP 18; TEMP 36.7; O2SAT 93
[2022-04-06] MEDS: LEVOTHYROXINE SODIUM INJ 100 MCG/5 ML VIAL IV PUSH (06:13)
[2022-04-06 06:16] LABS: Glucose Point of Care 89 mg/dl (65-105)
[2022-04-06 06:47] LABS: Basophils Percent Auto 0.5 % (0.2-1.2); Eosinophils Absolute Auto 0.1 K/mm3 (0-0.3); Eosinophils Percent Auto 0.9 % (0-4.4); Hematocrit 35.7 % (37.0-47.0); Hemoglobin 11.7 g/dL (12.0-15.0); Immature Granulocyte Absolute 0.04 K/mm3 (0.00-0.031); Immature Granulocyte Percent A 0.6 % (0-0.5); Lymphocytes Absolute Auto 1.89 K/mm3 (0.9-3.2); Lymphocytes Percent Auto 28.4 % (18.3-44.2); Mean Corpuscular HGB Conc 32.8 g/dl (32-36); Mean Corpuscular Hemoglobin 29.6 pg (26-34); Mean Corpuscular Volume 90.4 fl (80-100); Monocytes Absolute Auto 0.4 K/mm3 (0.1-0.6); Monocytes Percent Auto 6.5 % (2.6-8.5); Neutrophils Absolute Auto 4.2 K/mm3 (1.3-6.7); Neutrophils Percent Auto 63.1 % (45.5-73.1); Platelet Count Result 188 k/mm3 (150-375); Red Blood Count 3.95 M/mm3 (4.2-5.4); Red Cell Distribution Width 15.6 % (11.5-14.5); White Blood Count 6.7 K/mm3 (4.5-10.0)
[2022-04-06 06:58] LABS: Alanine Aminotransferase 9 U/L (6-35); Albumin Level 4.1 g/dL (3.5-5.1); Alkaline Phosphatase 33 U/L (38-126); Anion Gap 6 mmol/L (8-16); Aspartate Amino Transferase 17 U/L (14-36); Bilirubin,Total 0.6 mg/dL (0.2-1.3); Blood Urea Nitrogen 6 mg/dL (7-17); Calcium 7.5 mg/dL (8.4-10.2); Carbon Dioxide 26 mmol/L (22-30); Chloride 105 mmol/L (98-107); Estimated CRCL calculation 108 ml/min; Estimated Glomerular Filt Rate > 60; Glucose 86 mg/dL (65-110); Potassium 3.5 mmol/L (3.4-5.0); Sodium 137 mmol/L (137-145)
[2022-04-06 07:22] LABS: Triglycerides 681 mg/dL (<150)
[2022-04-06 08:36] LABS: Glucose Point of Care 91 mg/dl (65-105)
--- NOTE | 2022-04-06 08:48 | PM.DS ---
DS: Admitting Diagnosis Discharge Date 04/06/22 Admitting Diagnosis abdominal pain DS: Discharge Diagnosis Discharge Diagnosis (1) Acute generalized abdominal pain: Code(s): R10.84 - Generalized abdominal pain Status: Acute Assessment and Plan: Secondary to hypertriglyceridemia, improving, recheck triglycerides after plasmapheresis treatment today Anticipate discharge tomorrow (2) Hypertriglyceridemia: Code(s): E78.1 - Pure hyperglyceridemia Status: Acute Assessment and Plan: History of intermittent plasmapheresis over the last several years, triglyceride level 2401 Nephrology consultation for plasmapheresis History of familial hypertriglyceridemia, chilomicronemia and recurrent pancreatitis (3) Chest pain: Code(s): R07.9 - Chest pain, unspecified Status: Acute Assessment and Plan: Resolved (4) Diabetes mellitus: Qualifiers: Diabetes mellitus type: type 2 Diabetes mellitus termite helper insulin use: without termite helper use Diabetes mellitus complication status: with hyperglycemia Qualified Code(s): E11.65 - Type 2 diabetes mellitus with hyperglycemia Code(s): E11.9 - Type 2 diabetes mellitus without complications Status: Acute Assessment and Plan: A1c pending,, Accu-Cheks and sliding scale insulin Continue Lantus 35 units twice daily Hold metformin, continue Jardiance (5) Obesity (BMI 30.0-34.9): Code(s): E66.9 - Obesity, unspecified Status: Acute (6) Major depressive disorder: Qualifiers: Major depression recurrence: recurrent Active/Remission status: currently active Major depression episode severity: mild Qualified Code(s): F33.0 - Major depressive disorder, recurrent, mild Code(s): F32.9 - Major depressive disorder, single episode, unspecified Status: Acute Assessment and Plan: Continue home medications, stable (7) Anxiety: Code(s): F41.9 - Anxiety disorder, unspecified Status: Acute Assessment and Plan: As above Plan DVT prophylaxis with Lovenox GI prophylaxis with PPI Code status full code Transfer to [facility] with attempted at admission, no bed available DS: Summary Hospital Course Hospital Course: 46-year-old female who presents to the ER today with complaints of chest pain and abdominal pain that started since last night.? She reports she intermittently get this symptoms on and off and reports these are mostly related to her hypertriglyceridemia.? She had similar episode back in August and was in the hospital where they did the plasma pheresis.? She does not recall what her triglyceride level at that time was but at the time of discharge she was down to 300s.? She usually goes to [facility] for this.? She has been needing plasmapheresis intermittently for several years now.? His associated nausea but no vomiting.? Chest pain is sharp stabbing quality in the right side of the chest also radiates to the left side of the chest at times? She was evaluated in the ER her CBC was normal.?CMP was normal with negative troponin.?Her triglyceride level came back at 2401.? Lipase was normal.? Chest x-ray with no acute cardiopulmonary process.?CT abdomen pelvis with enlarged right ovary measuring up to approximately 3.6 x 3.5 cm proximally 2.8 cm right ovarian cystic lesion pelvic ultrasound will be helpful for more definitive evaluation of the right ovary.? There was noted diverticulosis of the left colon with no CT evidence of diverticulitis.?Hepatic steatosis and punctate nonobstructing lower pole left renal calculus. It was suspected her symptoms are related to severe hyper triglyceridemia and was planned to be transferred to [facility] however no bed was available.? Nephrology was contacted after that and the apheresis could be done here and hence she is getting admitted over here for further treatment. General surgery was consulted from femoral line to run plasmapheresis thro
[2022-04-06] MEDS: CELECOXIB 200 MG CAPSULE PO (09:27)
[2022-04-06] MEDS: CITALOPRAM HYDROBROMIDE 20 MG TABLET 40 MG PO (09:27)
[2022-04-06] MEDS: buPROPion HCL XL (24 HR) 150 MG TABCR PO (09:27)
[2022-04-06] MEDS: PANTOPRAZOLE 40 MG TABLET PO (09:28)
[2022-04-06] MEDS: EMPAGLIFLOZIN 25 MG TABLET PO (09:28)
[2022-04-06] MEDS: ONDANSETRON INJ 4 MG/2 ML VIAL IV PUSH ×3 (09:28→21:28)
[2022-04-06] MEDS: FENOFIBRATE NANOCRYSTALLIZED 145 MG TABLET PO (09:28)
[2022-04-06] MEDS: ROSUVASTATIN 10 MG TABLET 20 MG PO (09:28)
[2022-04-06 12:11] LABS: Glucose Point of Care 88 mg/dl (65-105)
[2022-04-06 13:57] VITALS: BP 134/78; PULSE 86; RESP 16; TEMP 36; O2SAT 95
[2022-04-06 16:34] LABS: Glucose Point of Care 100 mg/dl (65-105)
--- NOTE | 2022-04-06 17:01 | PM.PNNEP ---
Progress Note: A&P Assessment and Plan (1) Hypertriglyceridemia: Code(s): E78.1 - Pure hyperglyceridemia Status: Acute Assessment and Plan: patient has hypertriglyceridemia. her level this morning was down to 681. She received plasmapheresis yesterday. No need for more plasmapheresis. Once ready from other standpoints she is okay for discharge and follow up at [facility] for further plasmapheresis and management of her hypertriglyceridemia. (2) Acute generalized abdominal pain: Code(s): R10.84 - Generalized abdominal pain Status: Acute Assessment and Plan: Her pain is a little worse today. She is talking with Dr. Hair (3) Diabetes mellitus: Qualifiers: Diabetes mellitus type: type 2 Diabetes mellitus supervisor tellers insulin use: without supervisor tellers use Diabetes mellitus complication status: with hyperglycemia Qualified Code(s): E11.65 - Type 2 diabetes mellitus with hyperglycemia Code(s): E11.9 - Type 2 diabetes mellitus without complications Status: Acute Assessment and Plan: Management per hospitalists. she has not required any insulin (4) Tobacco use: Code(s): Z72.0 - Tobacco use Status: Acute Assessment and Plan: The patient should stop smoking Subjective Date/time seen: 04/06/22 17:01 Interval history: 04/04 Patient feels pretty well. She slept well. She still has some smoldering abdominal discomfort. 04/05 Casandra is feeling better. Plasmapheresis this morning. 04/06 belly pain is worse. Little bit of nausea. Exam Narrative: WDWN in NAD skin no rash head ncat lungs clear cor reg no rub abd BS+ Mildly tender and soft ext no edema. Objective Data Vital Signs Vital Signs: Vital Signs - 24 hr 04/05/22 22:00 04/05/22 20:00 04/06/22 06:00 Temperature 97.2 F L 98.1 F Pulse Rate 85 81 Respiratory Rate 18 18 Blood Pressure 135/71 117/78 Pulse Oximetry 95 93 Oxygen Delivery Room Air 04/06/22 13:57 04/06/22 08:00 Temperature 96.8 F L Pulse Rate 86 Respiratory Rate 16 Blood Pressure 134/78 Pulse Oximetry 95 Oxygen Delivery Room Air Intake/Output Intake/Output: Intake & Output 04/03/22 04/04/22 04/05/22 04/06/22 23:59 23:59 23:59 23:59 Intake Total 4118 2800 3510 2690 Output Total 2300 3300 1350 Balance 1818 -500 2160 2690 Meds/Results Medications: Active Medications Generic Name Dose Route Start Last Admin Trade Name Freq PRN Reason Stop Dose Admin Bupropion HCl 150 mg 04/04/22 09:00 04/06/22 09:27 Bupropion Hcl Xl (24 Hr) 150 Mg Tabcr PO 150 mg DAILY RAPHAEL Administration Celecoxib 200 mg 04/04/22 09:00 04/06/22 09:27 Celecoxib 200 Mg Capsule PO 200 mg DAILY RAPHAEL Administration Citalopram Hydrobromide 40 mg 04/04/22 09:00 04/06/22 09:27 Citalopram Hydrobromide 20 Mg Tablet PO 40 mg DAILY RAPHAEL Administration Dextrose 12.5 gm 04/03/22 15:35 Dextrose 50% 25 Gm/50 Ml Syringe IV PUSH PRN PRN Hypoglycemia Protocol Diphenhydramine HCl 25 mg 04/03/22 17:26 04/05/22 00:35 Diphenhydramine Hcl Cap 25 Mg Capsule PO 25 mg Q6H PRN Administration Itching Empagliflozin 25 mg 04/04/22 09:00 04/06/22 09:28 Empagliflozin 25 Mg Tablet PO 25 mg DAILY RAPHAEL Administration Fenofibrate 145 mg 04/04/22 09:00 04/06/22 09:28 Fenofibrate Nanocrystallized 145 Mg Tablet PO 145 mg DAILY RAPHAEL Administration Glucagon 1 mg 04/03/22 15:35 Glucagon For Inj 1 Mg Vial IM PRN PRN Hypoglycemia Protocol Glucose 15 gm 04/03/22 15:35 Glucose Oral Gel 15 Gm Of Glucse In 37.5 Gm Tube PO PRN PRN Hypoglycemia Protocol Hydromorphone HCl 1 mg 04/03/22 13:58 04/06/22 13:23 Hydromorphone Hcl Inj (*Crx) 1 Mg/Ml Syr IV PUSH 1 mg Q2H PRN Administration Pain Rated 7-10 Sodium Chloride 1,000 mls @ 125 mls/hr 04/03/22 06:55
--- NOTE | 2022-04-06 17:23 | PM.IMPN ---
Progress Note: A&P Assessment and Plan (1) Acute generalized abdominal pain: Code(s): R10.84 - Generalized abdominal pain Status: Acute Assessment and Plan: Appears to be worsening despite resolution of triglyceride level Check lipase, GI consult pending (2) Hypertriglyceridemia: Code(s): E78.1 - Pure hyperglyceridemia Status: Acute Assessment and Plan: History of intermittent plasmapheresis over the last several years, triglyceride level 2401 Nephrology consultation for plasmapheresis History of familial hypertriglyceridemia, chilomicronemia and recurrent pancreatitis (3) Chest pain: Code(s): R07.9 - Chest pain, unspecified Status: Acute Assessment and Plan: Resolved (4) Diabetes mellitus: Qualifiers: Diabetes mellitus type: type 2 Diabetes mellitus fci insulin use: without fci use Diabetes mellitus complication status: with hyperglycemia Qualified Code(s): E11.65 - Type 2 diabetes mellitus with hyperglycemia Code(s): E11.9 - Type 2 diabetes mellitus without complications Status: Acute Assessment and Plan: A1c pending,, Accu-Cheks and sliding scale insulin Continue Lantus 35 units twice daily Hold metformin, continue Jardiance (5) Obesity (BMI 30.0-34.9): Code(s): E66.9 - Obesity, unspecified Status: Acute (6) Major depressive disorder: Qualifiers: Major depression recurrence: recurrent Active/Remission status: currently active Major depression episode severity: mild Qualified Code(s): F33.0 - Major depressive disorder, recurrent, mild Code(s): F32.9 - Major depressive disorder, single episode, unspecified Status: Acute Assessment and Plan: Continue home medications, stable (7) Anxiety: Code(s): F41.9 - Anxiety disorder, unspecified Status: Acute Assessment and Plan: As above Plan DVT prophylaxis with Lovenox GI prophylaxis with PPI Code status full code Transfer to [facility] with attempted at admission, no bed available Subjective Date/time seen: 04/06/22 17:23 Interval history: With nausea and worsening abdominal pain today, patient states she is concerned that her pancreas is acting up. No emesis or diarrhea. No chest pain or shortness of breath. Review of Systems Review of Systems: 12 point review of systems was assessed and was negative except as noted in the HPI Exam Narrative: General: No acute distress, alert and oriented per baseline HEENT: Atraumatic, normocephalic, mucous membranes moist CV: Regular rate and rhythm, S1, S2 Lungs: Clear to auscultation bilaterally, no rales or crackles noted, no wheezes, good air entry Abdomen: Soft, diffusely tender Extremities: Normal to inspection Skin: No rashes noted, no lesions or wounds seen Psych: Euthymic, normal affect Objective Data Vital Signs Vital Signs: Vital Signs - 24 hr 04/05/22 22:00 04/05/22 20:00 04/06/22 06:00 Temperature 97.2 F L 98.1 F Pulse Rate 85 81 Respiratory Rate 18 18 Blood Pressure 135/71 117/78 Pulse Oximetry 95 93 Oxygen Delivery Room Air 04/06/22 13:57 04/06/22 08:00 Temperature 96.8 F L Pulse Rate 86 Respiratory Rate 16 Blood Pressure 134/78 Pulse Oximetry 95 Oxygen Delivery Room Air Intake/Output Intake/Output: Intake & Output 04/03/22 04/04/22 04/05/22 04/06/22 23:59 23:59 23:59 23:59 Intake Total 4118 2800 3510 2690 Output Total 2300 3300 1350 Balance 1818 -500 2160 2690 Meds/Results Medications: Active Medications Generic Name Dose Route Start Last Admin Trade Name Freq PRN Reason Stop Dose Admin Bupropion HCl 150 mg 04/04/22 09:00 04/06/22 09:27 Bupropion Hcl Xl (24 Hr) 150 Mg Tabcr PO 150 mg DAILY RAPHAEL Administration Celecoxib 200 mg 04/04/22 09:00 04/06/22 09:27 Celecoxib 200 Mg Capsule PO 200 mg DAILY RAPHAEL Administration Citalopram Hydrobromide 40 mg
--- NOTE | 2022-04-06 19:49 | PC.NURSE ---
Pt. continues to have severe pain in her abdomen. Plan was to discharge today. Provider called for clarification for continuation of femoral line. Provider stated to continue femoral line for now and to hold the discharge.
[2022-04-06 19:52] LABS: Lipase 53 U/L (23-300)
[2022-04-06] MEDS: traZODone HCL 50 MG TABLET 100 MG PO (21:00)
[2022-04-06 21:19] LABS: Glucose Point of Care 115 mg/dl (65-105)
[2022-04-06 22:00] VITALS: BP 127/80; PULSE 80; RESP 14; TEMP 36.1; O2SAT 96
[2022-04-07] MEDS: HYDROmorphone HCL INJ (*CRX) 1 MG/ML SYR IV PUSH ×6 (00:27→23:52)
[2022-04-07] MEDS: diphenhydrAMINE HCl CAP 25 MG CAPSULE PO (00:54)
[2022-04-07] MEDS: SODIUM CHLORIDE 0.9% IV 1,000 ML 125 ML IV CONT ×3 (05:12→22:00)
[2022-04-07 06:00] VITALS: BP 105/53; PULSE 85; RESP 18; TEMP 36.3; O2SAT 91
[2022-04-07] MEDS: LEVOTHYROXINE SODIUM INJ 100 MCG/5 ML VIAL IV PUSH (06:12)
[2022-04-07 06:22] LABS: Glucose Point of Care 89 mg/dl (65-105)
[2022-04-07 08:39] LABS: Basophils Percent Auto 0.5 % (0.2-1.2); Eosinophils Absolute Auto 0.1 K/mm3 (0-0.3); Eosinophils Percent Auto 1.4 % (0-4.4); Hematocrit 35.3 % (37.0-47.0); Hemoglobin 11.4 g/dL (12.0-15.0); Immature Granulocyte Absolute 0.03 K/mm3 (0.00-0.031); Immature Granulocyte Percent A 0.5 % (0-0.5); Lymphocytes Absolute Auto 1.65 K/mm3 (0.9-3.2); Lymphocytes Percent Auto 29.4 % (18.3-44.2); Mean Corpuscular HGB Conc 32.3 g/dl (32-36); Mean Corpuscular Hemoglobin 29.8 pg (26-34); Mean Corpuscular Volume 92.2 fl (80-100); Mean Platelet Volume 9.3 fl (7.4-10.4); Monocytes Absolute Auto 0.4 K/mm3 (0.1-0.6); Monocytes Percent Auto 7.3 % (2.6-8.5); Neutrophils Absolute Auto 3.4 K/mm3 (1.3-6.7); Neutrophils Percent Auto 60.9 % (45.5-73.1); Platelet Count Result 193 k/mm3 (150-375); Red Blood Count 3.83 M/mm3 (4.2-5.4); Red Cell Distribution Width 15.7 % (11.5-14.5); White Blood Count 5.6 K/mm3 (4.5-10.0)
[2022-04-07 08:44] LABS: Glucose Point of Care 73 mg/dl (65-105)
[2022-04-07] MEDS: ROSUVASTATIN 10 MG TABLET 20 MG PO (08:47)
[2022-04-07] MEDS: FENOFIBRATE NANOCRYSTALLIZED 145 MG TABLET PO (08:47)
[2022-04-07] MEDS: buPROPion HCL XL (24 HR) 150 MG TABCR PO (08:48)
[2022-04-07] MEDS: PANTOPRAZOLE 40 MG TABLET PO (08:48)
[2022-04-07] MEDS: EMPAGLIFLOZIN 25 MG TABLET PO (08:48)
[2022-04-07] MEDS: CITALOPRAM HYDROBROMIDE 20 MG TABLET 40 MG PO (08:48)
[2022-04-07] MEDS: CELECOXIB 200 MG CAPSULE PO (08:50)
[2022-04-07 09:00] LABS: Alanine Aminotransferase 9 U/L (6-35); Albumin Level 3.9 g/dL (3.5-5.1); Alkaline Phosphatase 39 U/L (38-126); Anion Gap 7 mmol/L (8-16); Aspartate Amino Transferase 20 U/L (14-36); Bilirubin,Total 0.5 mg/dL (0.2-1.3); Blood Urea Nitrogen 5 mg/dL (7-17); Calcium 7.6 mg/dL (8.4-10.2); Carbon Dioxide 26 mmol/L (22-30); Chloride 105 mmol/L (98-107); Estimated CRCL calculation 108 ml/min; Estimated Glomerular Filt Rate > 60; Glucose 74 mg/dL (65-110); Potassium 3.2 mmol/L (3.4-5.0); Sodium 138 mmol/L (137-145)
--- NOTE | 2022-04-07 10:59 | WPDGICN ---
Assessment and Plan Assessment and plan (1) Abdominal pain: Code(s): R10.9 - Unspecified abdominal pain Status: Acute Assessment and Plan: Patient with rather diffuse abdominal pain. This appears consistent with her established diagnosis of chylomicronemia. related elevated triglycerides. No specific etiology for Her abdominal pain is always present. No evidence of pancreatitis evident by imaging studies. Or by laboratory parameters. Recommend supportive care and pain control presently. A very low-fat diet is encouraged for this condition. 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 Patient has a history of elevated triglycerides. 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 typically followed at [facility]. She has been unable to get transfer there. Patient has chronic abdominal pain from this condition. Because of intensified pain she presented to our hospital several days ago. She continues to have abdominal pain. Recent CT scan revealed no evidence of pancreatitis. No other alternate lesions identified. Patient describes rather diffuse abdominal pain. Appears to be centered somewhat mid epigastric left upper quadrant. Pain she has at this time is similar to all of her previous episodes of pain associated with this disease. It appears somewhat more intense prompting her to remain admitted. Review of Systems Review of Systems: Review of systems noncontributory. [facility] Past Medical History Medical History (Updated 04/07/22 @ 11:02 by Malcom Jones MD) Allergies Anxiety Anxiety Chylomicronemia syndrome Headache History of HPV infection Hyperlipemia Hypertriglyceridemia Lipoprotein deficiency Port-A-Cath in place Thyroid disorder Surgical History Surgical History H/O LEEP History of conization of cervix History of dilatation and curettage History of exploratory laparotomy History of tonsillectomy S/P appendectomy S/P endometrial ablation S/P partial hysterectomy Tubal ligation status [place] teeth removed Family History Family History Other Alcohol abuse Cerebrovascular accident Heart disease History of cancer History of thyroid disorder Hypertension Kidney disorder Social History Social History Smoking packs per day: 1 Smoking cigarettes per day: 20.0 Years smoked: 20 Smoking pack-years: 20.00 Smoking status: Current every day smoker Tobacco type: cigarettes Alcohol intake: never Substance use: never Substance use type: does not use Lack of Transportation: No Lack of Food: Never True Current Housing: I Have Housing Concerned About Future Housing: No Difficulty Paying Gas/Electric Bills: No Difficulty Paying for Meds: No Currently Unemployed: No Education: Associate Degree Difficulty w/ Childcare or Family Care: No Spiritual care concerns: No Meds Home Medications and Allergies Home Medications Medication Instructions Recorded Confirmed Type fenofibrate nanocrystallized 145 145 mg PO DAILY #90 tabs 12/07/19 04/03/22 Rx mg tablet blood sugar diagnostic (OneTouch See Rx Instructions .Route 01/12/20 04/03/22 Rx Ultra Blue Test Strip) .COMPLEX ##100 lancets 30 gauge (OneTouch Delramírez See Rx Instructions .Route 01/12/20 04/03/22 Rx Plus Lancet) .COMPLEX ##100 empagliflozin 25 mg tablet 25 mg PO DAILY 10/20/20 04/03/22 History (Jardiance) metformin 500 mg tablet 1,000 mg PO BID 10/20/20 04/03/22
--- NOTE | 2022-04-07 11:23 | PM.PNNEP ---
Progress Note: A&P Assessment and Plan (1) Hypertriglyceridemia: Code(s): E78.1 - Pure hyperglyceridemia Status: Acute Assessment and Plan: patient has hypertriglyceridemia. her level this morning is still pending She received plasmapheresis No need for more plasmapheresis. once triglyceride level is back she can have the catheter removed. (2) Acute generalized abdominal pain: Code(s): R10.84 - Generalized abdominal pain Status: Acute Assessment and Plan: Belly pain is a little bit better today. She is on Celebrex. She is also constipated will give a cathartic. 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 she has not required any insulin (4) Tobacco use: Code(s): Z72.0 - Tobacco use Status: Acute Assessment and Plan: The patient should stop smoking Subjective Date/time seen: 04/07/22 11:23 Interval history: 04/04 Patient feels pretty well. She slept well. She still has some smoldering abdominal discomfort. 04/05 Casandra is feeling better. Plasmapheresis this morning. 04/06 belly pain is worse. Little bit of nausea. 04/07 Casandra still has abdominal discomfort. May be a little bit better. Lipase was negative. GI saw the patient has not written a note but told the patient that there was not much else to do. she has not had a bowel movement the whole admission Exam Narrative: WDWN in NAD skin no rash head ncat lungs clear cor reg no rub abd BS+ Mildly tender and soft ext no edema. Objective Data Vital Signs Vital Signs: Vital Signs - 24 hr 04/06/22 13:57 04/06/22 20:00 04/06/22 22:00 Temperature 96.8 F L 96.9 F L Pulse Rate 86 80 Respiratory Rate 16 14 Blood Pressure 134/78 127/80 Pulse Oximetry 95 96 Oxygen Delivery Room Air 04/07/22 06:00 Temperature 97.4 F L Pulse Rate 85 Respiratory Rate 18 Blood Pressure 105/53 L Pulse Oximetry 91 Oxygen Delivery Intake/Output Intake/Output: Intake & Output 04/04/22 04/05/22 04/06/22 04/07/22 23:59 23:59 23:59 23:59 Intake Total 2800 3510 3740 1440 Output Total 3300 1350 1800 2500 Balance -500 2160 1940 -1060 Meds/Results Medications: Active Medications Generic Name Dose Route Start Last Admin Trade Name Freq PRN Reason Stop Dose Admin Bupropion HCl 150 mg 04/04/22 09:00 04/07/22 08:48 Bupropion Hcl Xl (24 Hr) 150 Mg Tabcr PO 150 mg DAILY RAPHAEL Administration Celecoxib 200 mg 04/04/22 09:00 04/07/22 08:50 Celecoxib 200 Mg Capsule PO 200 mg DAILY RAPHAEL Administration Citalopram Hydrobromide 40 mg 04/04/22 09:00 04/07/22 08:48 Citalopram Hydrobromide 20 Mg Tablet PO 40 mg DAILY RAPHAEL Administration Dextrose 12.5 gm 04/03/22 15:35 Dextrose 50% 25 Gm/50 Ml Syringe IV PUSH PRN PRN Hypoglycemia Protocol Diphenhydramine HCl 25 mg 04/03/22 17:26 04/07/22 00:54 Diphenhydramine Hcl Cap 25 Mg Capsule PO 25 mg Q6H PRN Administration Itching Empagliflozin 25 mg 04/04/22 09:00 04/07/22 08:48 Empagliflozin 25 Mg Tablet PO 25 mg DAILY RAPHAEL Administration Fenofibrate 145 mg 04/04/22 09:00 04/07/22 08:47 Fenofibrate Nanocrystallized 145 Mg Tablet PO 145 mg DAILY RAPHAEL Administration Glucagon 1 mg 04/03/22 15:35 Glucagon For Inj 1 Mg Vial IM PRN PRN Hypoglycemia Protocol Glucose 15 gm 04/03/22 15:35 Glucose Oral Gel 15 Gm Of Glucse In 37.5 Gm Tube PO PRN PRN Hypoglycemia Protocol Hydromorphone HCl 1 mg
[2022-04-07 11:37] LABS: Triglycerides 650 mg/dL (<150)
[2022-04-07 12:23] LABS: Glucose Point of Care 95 mg/dl (65-105)
--- NOTE | 2022-04-07 12:59 | PC.NURSE ---
This RN administered all IVP medications for this patient
[2022-04-07] MEDS: LACTULOSE 20 GM/30 ML UDC PO (13:08)
[2022-04-07 14:00] VITALS: BP 120/72; PULSE 87; RESP 18; TEMP 35.9; O2SAT 96
[2022-04-07] MEDS: ACETAMINOPHEN 325 MG TABLET 650 MG PO (14:39)
--- NOTE | 2022-04-07 14:59 | PM.IMPN ---
Progress Note: A&P Assessment and Plan (1) Hypertriglyceridemia: Code(s): E78.1 - Pure hyperglyceridemia Status: Acute Assessment and Plan: patient has hypertriglyceridemia. her level this morning is still pending She received plasmapheresis No need for more plasmapheresis. once triglyceride level is back she can have the catheter removed. 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 HBA1c ( goal <7.0%) , Renal functions, Liver panel every 3 months Monitor vitamin B12 levels Optimize RUKHSANA-inhibitor and statin Routine glucose monitoring. Watch for Hypoglycemia. BMI goal < 25 Yearly eye exam and foot exam Exercise, Diet ( low salt- low carb) Weight loss Routinely check for urine microalbuminuria Routine follow-up with PCP and student recruiter (4) Tobacco use: Code(s): Z72.0 - Tobacco use Status: Acute Assessment and Plan: The patient should stop smoking (5) Ovarian cyst: Code(s): N83.209 - Unspecified ovarian cyst, unspecified side Status: Acute Assessment and Plan: will get ultrasound the pelvis to demonstrate any ovarian mass. CT finding consistent with ovarian cyst. Could be a cause of abdominal pain as. Will advise patient to see technical sales advisor as an outpatient with a complete pelvic exam Plan DVT prophylaxis. GI prophylaxis. All records reviewed Discussed plan of care with the nursing staff and with the patient in detail. Answered all questions and concerns from the patient. All labs have been reviewed. Code status updated will limit use of narcotics as there is no source of pain. dictation may have been done utilizing a voice recognition system. Attempts have been made to correct errors. However, there may be uncorrected grammatical, spelling, and recognition errors present. Time Spent With Patient Time with patient: 15 - 25 minutes Subjective Date/time seen: 04/07/22 14:59 Interval history: still complains of generalized abdominal pain but appears comfortable bed has been using Dilaudid around the clock Review of Systems Review of Systems: All systems reviewed & are unremarkable except as noted in HPI and below Exam Const: General: comfortable HENMT: Ears: TM's normal bilaterally Mouth: Yes moist mucous membranes Eyes: General: appearance normal, both eyes and all related structures Pupils: Equal, round and reactive pupils present Neck: Neck: supple and no JVD Resp: Effort & Inspection: normal respiratory effort Auscultation: clear to auscultation bilaterally Cardio: Rate: regular rate Rhythm: regular rhythm GI: GI Palp: Yes Soft to palpation, No Tenderness to palpation present (GI), No Guarding due to palpation present (GI) and No Hernia present Auscultation: normal bowel sounds Skin: General skin exam: normal color Neuro: Speech: normal speech Motor exam (neuro): 5/5 motor strength present throughout Sensory Exam: normal sensation Extrem: General: normal to inspection Psych: Affect: normal affect Objective Data Vital Signs Vital Signs: Vital Signs - 24 hr 04/06/22 20:00 04/06/22 22:00 04/07/22 06:00 Temperature 36.1 C L 36.3 C L Pulse Rate 80 85 Respiratory Rate 14 18 Blood Pressure 127
[2022-04-07 16:20] LABS: Glucose Point of Care 89 mg/dl (65-105)
--- NOTE | 2022-04-07 18:12 | PC.NURSE ---
Removed Femoral Quiton catheter intact. Applied pressure for 15 min. Applied tegaderm dressing to be left on for 24 hours.
[2022-04-07] MEDS: traZODone HCL 50 MG TABLET 100 MG PO (21:19)
[2022-04-07 22:00] VITALS: BP 115/62; PULSE 85; RESP 16; TEMP 36.2; O2SAT 97
[2022-04-07 23:09] LABS: Glucose Point of Care 114 mg/dl (65-105)
[2022-04-08 06:00] VITALS: BP 118/73; PULSE 79; RESP 18; TEMP 36; O2SAT 95
[2022-04-08] MEDS: SODIUM CHLORIDE 0.9% IV 1,000 ML 125 ML IV CONT ×2 (06:10→17:40)
[2022-04-08] MEDS: HYDROmorphone HCL INJ (*CRX) 1 MG/ML SYR IV PUSH ×3 (06:11→20:31)
[2022-04-08] MEDS: LEVOTHYROXINE SODIUM INJ 100 MCG/5 ML VIAL IV PUSH (06:12)
[2022-04-08 06:24] LABS: Glucose Point of Care 78 mg/dl (65-105)
[2022-04-08 07:21] LABS: Basophils Percent Auto 0.6 % (0.2-1.2); Eosinophils Absolute Auto 0.1 K/mm3 (0-0.3); Eosinophils Percent Auto 1.4 % (0-4.4); Hematocrit 34.9 % (37.0-47.0); Hemoglobin 11.5 g/dL (12.0-15.0); Immature Granulocyte Absolute 0.04 K/mm3 (0.00-0.031); Immature Granulocyte Percent A 0.8 % (0-0.5); Lymphocytes Absolute Auto 1.55 K/mm3 (0.9-3.2); Lymphocytes Percent Auto 31.2 % (18.3-44.2); Mean Corpuscular Hemoglobin 30.3 pg (26-34); Mean Corpuscular Volume 91.8 fl (80-100); Monocytes Absolute Auto 0.4 K/mm3 (0.1-0.6); Monocytes Percent Auto 7.6 % (2.6-8.5); Neutrophils Absolute Auto 2.9 K/mm3 (1.3-6.7); Neutrophils Percent Auto 58.4 % (45.5-73.1); Platelet Count Result 200 k/mm3 (150-375); Red Cell Distribution Width 15.7 % (11.5-14.5)
[2022-04-08 07:59] LABS: Alanine Aminotransferase 10 U/L (6-35); Alkaline Phosphatase 44 U/L (38-126); Anion Gap 3 mmol/L (8-16); Aspartate Amino Transferase 23 U/L (14-36); Bilirubin,Total 0.4 mg/dL (0.2-1.3); Blood Urea Nitrogen 4 mg/dL (7-17); Calcium 7.7 mg/dL (8.4-10.2); Carbon Dioxide 28 mmol/L (22-30); Chloride 102 mmol/L (98-107); Estimated CRCL calculation 127 ml/min; Estimated Glomerular Filt Rate > 60; Glucose 74 mg/dL (65-110); Sodium 133 mmol/L (137-145)
[2022-04-08] MEDS: LACTULOSE 20 GM/30 ML UDC PO (08:38)
[2022-04-08] MEDS: CITALOPRAM HYDROBROMIDE 20 MG TABLET 40 MG PO (08:39)
[2022-04-08] MEDS: buPROPion HCL XL (24 HR) 150 MG TABCR PO (08:39)
[2022-04-08] MEDS: ROSUVASTATIN 10 MG TABLET 20 MG PO (08:39)
[2022-04-08] MEDS: PANTOPRAZOLE 40 MG TABLET PO (08:39)
[2022-04-08] MEDS: CELECOXIB 200 MG CAPSULE PO (08:39)
[2022-04-08] MEDS: FENOFIBRATE NANOCRYSTALLIZED 145 MG TABLET PO (08:39)
[2022-04-08] MEDS: EMPAGLIFLOZIN 25 MG TABLET PO (08:39)
[2022-04-08 08:54] LABS: Glucose Point of Care 74 mg/dl (65-105)
--- NOTE | 2022-04-08 10:45 | PM.PNNEP ---
Progress Note: A&P Assessment and Plan (1) Hypertriglyceridemia: Code(s): E78.1 - Pure hyperglyceridemia Status: Acute Assessment and Plan: patient has hypertriglyceridemia. levels around 600. Today's are pending. She received plasmapheresis No need for more plasmapheresis. Her dialysis catheter is out. (2) Acute generalized abdominal pain: Code(s): R10.84 - Generalized abdominal pain Status: Acute Assessment and Plan: Belly pain is a little bit better today. She is on Celebrex. She is also constipated Will stop Celebrex. Start Tylenol. 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 she has not required any insulin (4) Tobacco use: Code(s): Z72.0 - Tobacco use Status: Acute Assessment and Plan: The patient should stop smoking Subjective Date/time seen: 04/08/22 10:45 Interval history: 04/04 Patient feels pretty well. She slept well. She still has some smoldering abdominal discomfort. 04/05 Casandra is feeling better. Plasmapheresis this morning. 04/06 belly pain is worse. Little bit of nausea. 04/07 Casandra still has abdominal discomfort. May be a little bit better. Lipase was negative. GI saw the patient has not written a note but told the patient that there was not much else to do. she has not had a bowel movement the whole admission 04/08 Belly pain is about the same. She is on Celebrex. This is for joint pain. Will try Tylenol instead Exam Narrative: WDWN in NAD skin no rash head ncat lungs clear cor reg no rub abd BS+ Mildly tender and soft ext no edema. Objective Data Vital Signs Vital Signs: Vital Signs - 24 hr 04/07/22 14:00 04/07/22 22:00 04/07/22 20:00 Temperature 96.7 F L 97.1 F L Pulse Rate 87 85 Respiratory Rate 18 16 Blood Pressure 120/72 115/62 Pulse Oximetry 96 97 Oxygen Delivery Room Air 04/08/22 06:00 Temperature 96.8 F L Pulse Rate 79 Respiratory Rate 18 Blood Pressure 118/73 Pulse Oximetry 95 Oxygen Delivery Intake/Output Intake/Output: Intake & Output 04/05/22 04/06/22 04/07/22 04/08/22 23:59 23:59 23:59 23:59 Intake Total 3510 3740 3680 1200 Output Total 1350 1800 5500 2500 Balance 2160 1940 -1820 -1300 Meds/Results Medications: Active Medications Generic Name Dose Route Start Last Admin Trade Name Freq PRN Reason Stop Dose Admin Acetaminophen 650 mg 04/07/22 14:24 04/07/22 14:39 Acetaminophen 325 Mg Tablet PO 650 mg Q4H PRN Administration Mild Pain (1-3) or Fever Bupropion HCl 150 mg 04/04/22 09:00 04/08/22 08:39 Bupropion Hcl Xl (24 Hr) 150 Mg Tabcr PO 150 mg DAILY RAPHAEL Administration Celecoxib 200 mg 04/04/22 09:00 04/08/22 08:39 Celecoxib 200 Mg Capsule PO 200 mg DAILY RAPHAEL Administration Citalopram Hydrobromide 40 mg 04/04/22 09:00 04/08/22 08:39 Citalopram Hydrobromide 20 Mg Tablet PO 40 mg DAILY RAPHAEL Administration Dextrose 12.5 gm 04/03/22 15:35 Dextrose 50% 25 Gm/50 Ml Syringe IV PUSH PRN PRN Hypoglycemia Protocol Diphenhydramine HCl 25 mg 04/03/22 17:26 04/07/22 00:54 Diphenhydramine Hcl Cap 25 Mg Capsule PO 25 mg Q6H PRN Administration Itching Empagliflozin 25 mg 04/04/22 09:00 04/08/22 08:39 Empagliflozin 25 Mg Tablet PO 25 mg DAILY RAPHAEL Administration Fenofibrate 145 mg 04/04/22 09:00 04/08/22 08:39 Fenofibrate Nanocrystallized 145 Mg Tablet PO 145 mg DAILY RAPHAEL Administration Glu
--- NOTE | 2022-04-08 10:51 | WPDGIPROGNO ---
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 Followed at tertiary care center. Patient ultimately will need follow-up there. Main treatment for this syndrome is a an extremely low fat diet. Chronic pain is noted to go along with this syndrome. Pancreatitis is possible but no evidence by laboratory or imaging studies. At present I see no need for invasive testing. Try to limit fat diet. Plasmapheresis was attempted on . May need be repeated intermittently. (2) Hypertriglyceridemia: Code(s): E78.1 - Pure hyperglyceridemia Status: Acute (3) Abdominal pain: Code(s): R10.9 - Unspecified abdominal pain Status: Acute Plan Patient anxious to get up in the room. I see no reason why ambulation cannot be increased. okay from my perspective to have patient get up out of bed as much as possible. Subjective Date/time seen: 04/08/22 10:51 Patient continues to have ongoing abdominal pain. This appears to be her baseline. Review of Systems Review of Systems: Review of systems noncontributory. Exam Narrative: Physical exam reveals patient be alert. Lying in bed. Anxious to get up. Lungs are clear. Heart without murmur. Abdomen bowel sounds present soft mild diffuse tenderness noted. Objective Data Vital Signs Vital Signs: Vital Signs - 24 hr 04/07/22 14:00 04/07/22 22:00 04/07/22 20:00 Temperature 96.7 F L 97.1 F L Pulse Rate 87 85 Respiratory Rate 18 16 Blood Pressure 120/72 115/62 Pulse Oximetry 96 97 Oxygen Delivery Room Air 04/08/22 06:00 Temperature 96.8 F L Pulse Rate 79 Respiratory Rate 18 Blood Pressure 118/73 Pulse Oximetry 95 Oxygen Delivery Intake/Output Intake/Output: Intake & Output 04/05/22 04/06/22 04/07/22 04/08/22 23:59 23:59 23:59 23:59 Intake Total 3510 3740 3680 1200 Output Total 1350 1800 5500 2500 Balance 2160 1940 -1820 -1300 Meds/Results Medications: Active Medications Generic Name Dose Route Start Last Admin Trade Name Freq PRN Reason Stop Dose Admin Acetaminophen 500 mg 04/09/22 06:00 Acetaminophen 500 Mg Tablet PO Q6H PRN Mild Pain (1-3) or Fever Bupropion HCl 150 mg 04/04/22 09:00 04/08/22 08:39 Bupropion Hcl Xl (24 Hr) 150 Mg Tabcr PO 150 mg DAILY RAPHAEL Administration Citalopram Hydrobromide 40 mg 04/04/22 09:00 04/08/22 08:39 Citalopram Hydrobromide 20 Mg Tablet PO 40 mg DAILY RAPHAEL Administration Dextrose 12.5 gm 04/03/22 15:35 Dextrose 50% 25 Gm/50 Ml Syringe IV PUSH PRN PRN Hypoglycemia Protocol Diphenhydramine HCl 25 mg 04/03/22 17:26 04/07/22 00:54 Diphenhydramine Hcl Cap 25 Mg Capsule PO 25 mg Q6H PRN Administration Itching Empagliflozin 25 mg 04/04/22 09:00 04/08/22 08:39 Empagliflozin 25 Mg Tablet PO 25 mg DAILY RAPHAEL Administration Fenofibrate 145 mg 04/04/22 09:00 04/08/22 08:39 Fenofibrate Nanocrystallized 145 Mg Tablet PO 145 mg DAILY RAPHAEL Administration Glucagon 1 mg 04/03/22 15:35 Glucagon For Inj 1 Mg Vial IM PRN PRN Hypoglycemia Protocol Glucose 15 gm 04/03/22 15:35 Glucose Oral Gel 15 Gm Of Glucse In 37.5 Gm Tube PO PRN PRN Hypoglycemia Protocol Hydromorphone HCl 1 mg 04/07/22 14:24 04/08/22 06:11 Hydromorphone Hcl Inj (*Crx) 1 Mg/Ml Syr IV PUSH 1 mg Q6H PRN Administration Pain Rated 7-10 Sodium Chloride 1,000 mls @ 125 mls/hr 04/03/22 06:55 04/08/22 06:10 Normal Saline Iv IV CONT 125 mls/hr .Q8H RAPHAEL Administration Dextrose 1,000 mls @ 100 mls/hr 04/03/22 15:35 Dextrose 5% 1,000 Ml IVPB PRN PRN Hypoglycemia Protocol Acetaminophen 1,000 mg in 100 mls @ 400 mls/hr 04/08/22 04:50 Ofirmev 1,000 Mg Ivpb IVPB 04/09/22 04:49 Q6H PRN Pain Rated 1-3
[2022-04-08 12:13] LABS: Glucose Point of Care 71 mg/dl (65-105)
[2022-04-08] MEDS: POTASSIUM CHLORIDE INJ 40 MEQ in SODIUM CHLORIDE 0.9% IV 500 ML 130 MEQ IVPB (12:27)
[2022-04-08] MEDS: BISACODYL 5 MG TABLET EC PO (12:30)
[2022-04-08 13:24] LABS: Triglycerides 795 mg/dL (<150)
[2022-04-08 14:00] VITALS: BP 125/77; PULSE 90; RESP 16; TEMP 35.9; O2SAT 97
--- NOTE | 2022-04-08 14:26 | PM.IMPN ---
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 Followed at tertiary care center. Patient ultimately will need follow-up there. Main treatment for this syndrome is a an extremely low fat diet. Pancreatitis is possible but no evidence by laboratory or imaging studies. lowit fat diet. Plasmapheresis was completed last triglycerides 650ly. (2) Hypertriglyceridemia: Code(s): E78.1 - Pure hyperglyceridemia Status: Acute (3) Abdominal pain: Code(s): R10.9 - Unspecified abdominal pain Status: Acute Assessment and Plan: still has occasional abdominal pain much ultrasound of ovaries showed 3.3 cm ovarian follicular cyst right-sided Plan DVT prophylaxis. GI prophylaxis. All records reviewed Discussed plan of care with the nursing staff and with the patient in detail. Answered all questions and concerns from the patient. All labs have been reviewed. Code status updated will ambulate patient possibly go still replacing potassium with K rider. Patient has history of narcotic dependency discourage use of narcotics dictation may have been done utilizing a voice recognition system. Attempts have been made to correct errors. However, there may be uncorrected grammatical, spelling, and recognition errors present. Subjective Date/time seen: 04/08/22 14:26 Interval history: still has occasional abdominal much chest shortness Review of Systems Review of Systems: All systems reviewed & are unremarkable except as noted in HPI and below Exam Const: General: comfortable HENMT: Ears: TM's normal bilaterally Mouth: Yes moist mucous membranes Eyes: General: appearance normal, both eyes and all related structures Pupils: Equal, round and reactive pupils present Neck: Neck: supple and no JVD Resp: Effort & Inspection: normal respiratory effort Auscultation: clear to auscultation bilaterally Cardio: Rate: regular rate Rhythm: regular rhythm GI: GI Palp: Yes Soft to palpation, No Tenderness to palpation present (GI), No Guarding due to palpation present (GI) and No Hernia present Auscultation: normal bowel sounds Skin: General skin exam: normal color Neuro: Speech: normal speech Motor exam (neuro): 5/5 motor strength present throughout Sensory Exam: normal sensation Extrem: General: normal to inspection Psych: Affect: normal affect Objective Data Vital Signs Vital Signs: Vital Signs - 24 hr 04/07/22 22:00 04/07/22 20:00 04/08/22 06:00 Temperature 36.2 C L 36.0 C L Pulse Rate 85 79 Respiratory Rate 16 18 Blood Pressure 115/62 118/73 Pulse Oximetry 97 95 Oxygen Delivery Room Air Intake/Output Intake/Output: Intake & Output 04/05/22 04/06/22 04/07/22 04/08/22 23:59 23:59 23:59 23:59 Intake Total 3510 3740 3680 1320 Output Total 1350 1800 5500 2500 Balance 2160 1940 -1820 -1180 Meds/Results Medications: Active Medications Generic Name Dose Route Start Last Admin Trade Name Freq PRN Reason Stop Dose Admin Acetaminophen 500 mg 04/09/22 06:00 Acetaminophen 500 Mg Tablet PO Q6H PRN Mild Pain (1-3) or Fever Bupropion HCl 150 mg 04/04/22 09:00 04/08/22 08:39 Bupropion Hcl Xl (24 Hr) 150 Mg Tabcr PO 150 mg DAILY RAPHAEL Administration Citalopram Hydrobromide 40 mg 04/04/22 09:00 04/08/22 08:39 Citalopram Hydrobromide 20 Mg Tablet PO 40 mg DAILY RAPHAEL Administration Dextrose 12.5 gm 04/03/22 15:35 Dextrose 50% 25 Gm/50 Ml Syringe IV PUSH PRN PRN Hypoglycemia Protocol Diphenhydramine HCl 25 mg 04/03/22 17:26 04/07/22 00:54 Diphenhydramine Hcl Cap 25 Mg Capsule PO 25 mg Q6H PRN Administration Itching Empagliflozin 25 mg 04/04/22 09:00 04/08/22 08:39 Empagliflozin 25 Mg Tablet PO 25 mg DAILY RAPHAEL Administra
[2022-04-08 16:36] LABS: Glucose Point of Care 70 mg/dl (65-105)
[2022-04-08] MEDS: traZODone HCL 50 MG TABLET 100 MG PO (20:32)
[2022-04-08 20:43] LABS: Glucose Point of Care 144 mg/dl (65-105)
[2022-04-08 22:00] VITALS: BP 126/70; PULSE 77; RESP 18; TEMP 36.8; O2SAT 97
[2022-04-09] MEDS: SODIUM CHLORIDE 0.9% IV 1,000 ML 125 ML IV CONT (02:26)
[2022-04-09] MEDS: HYDROmorphone HCL INJ (*CRX) 1 MG/ML SYR IV PUSH (02:29)
[2022-04-09] MEDS: LEVOTHYROXINE SODIUM INJ 100 MCG/5 ML VIAL IV PUSH (05:29)
[2022-04-09 05:37] LABS: Glucose Point of Care 87 mg/dl (65-105)
[2022-04-09 06:00] VITALS: BP 97/59; PULSE 67; RESP 18; TEMP 36.3; O2SAT 98
[2022-04-09 07:03] LABS: Basophils Percent Auto 0.8 % (0.2-1.2); Eosinophils Absolute Auto 0.1 K/mm3 (0-0.3); Eosinophils Percent Auto 1.3 % (0-4.4); Hematocrit 34.6 % (37.0-47.0); Hemoglobin 11.3 g/dL (12.0-15.0); Immature Granulocyte Absolute 0.06 K/mm3 (0.00-0.031); Immature Granulocyte Percent A 1.3 % (0-0.5); Lymphocytes Absolute Auto 1.63 K/mm3 (0.9-3.2); Lymphocytes Percent Auto 34.4 % (18.3-44.2); Mean Corpuscular HGB Conc 32.7 g/dl (32-36); Mean Corpuscular Hemoglobin 29.7 pg (26-34); Mean Corpuscular Volume 91.1 fl (80-100); Mean Platelet Volume 9.3 fl (7.4-10.4); Monocytes Absolute Auto 0.4 K/mm3 (0.1-0.6); Monocytes Percent Auto 8.4 % (2.6-8.5); Neutrophils Absolute Auto 2.6 K/mm3 (1.3-6.7); Neutrophils Percent Auto 53.8 % (45.5-73.1); Platelet Count Result 205 k/mm3 (150-375); Red Cell Distribution Width 15.7 % (11.5-14.5); White Blood Count 4.7 K/mm3 (4.5-10.0)
[2022-04-09 07:06] LABS: Alanine Aminotransferase 11 U/L (6-35); Alkaline Phosphatase 48 U/L (38-126); Anion Gap 8 mmol/L (8-16); Aspartate Amino Transferase 24 U/L (14-36); Bilirubin,Total 0.5 mg/dL (0.2-1.3); Blood Urea Nitrogen 5 mg/dL (7-17); Calcium 7.9 mg/dL (8.4-10.2); Carbon Dioxide 28 mmol/L (22-30); Chloride 104 mmol/L (98-107); Estimated CRCL calculation 127 ml/min; Estimated Glomerular Filt Rate > 60; Glucose 84 mg/dL (65-110); Phosphorus 3.2 mg/dL (2.5-4.5); Sodium 140 mmol/L (137-145)
[2022-04-09 07:19] LABS: Triglycerides 605 mg/dL (<150)
[2022-04-09 07:47] LABS: Glucose Point of Care 80 mg/dl (65-105)
[2022-04-09] MEDS: POTASSIUM CHLORIDE 20 MEQ PACKET (FOR LIQUID) 40 MEQ PO (09:23)
[2022-04-09] MEDS: ROSUVASTATIN 10 MG TABLET 20 MG PO (09:24)
[2022-04-09] MEDS: PANTOPRAZOLE 40 MG TABLET PO (09:24)
[2022-04-09] MEDS: LACTULOSE 20 GM/30 ML UDC PO (09:24)
[2022-04-09] MEDS: FENOFIBRATE NANOCRYSTALLIZED 145 MG TABLET PO (09:24)
[2022-04-09] MEDS: buPROPion HCL XL (24 HR) 150 MG TABCR PO (09:25)
[2022-04-09] MEDS: EMPAGLIFLOZIN 25 MG TABLET PO (09:25)
[2022-04-09] MEDS: CITALOPRAM HYDROBROMIDE 20 MG TABLET 40 MG PO (09:25)
[2022-04-09 11:53] LABS: Glucose Point of Care 140 mg/dl (65-105)
--- NOTE | 2022-04-09 12:55 | PM.DS ---
DS: Admitting Diagnosis Discharge Date 04/09/22 Admitting Diagnosis Hypertriglyceridemia and abdominal pain DS: Discharge Diagnosis Discharge Diagnosis (1) Ovarian cyst: Code(s): N83.209 - Unspecified ovarian cyst, unspecified side Status: Acute (2) Abdominal pain: Code(s): R10.9 - Unspecified abdominal pain Status: Acute (3) Anxiety: Code(s): F41.9 - Anxiety disorder, unspecified Status: Acute (4) Hypertriglyceridemia: Code(s): E78.1 - Pure hyperglyceridemia Status: Acute (5) Major depressive disorder: Qualifiers: Major depression recurrence: recurrent Active/Remission status: currently active Major depression episode severity: mild Qualified Code(s): F33.0 - Major depressive disorder, recurrent, mild Code(s): F32.9 - Major depressive disorder, single episode, unspecified Status: Acute (6) Obesity (BMI 30.0-34.9): Code(s): E66.9 - Obesity, unspecified Status: Acute (7) Diabetes mellitus: Qualifiers: Diabetes mellitus type: type 2 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 She has had plasmapheresis for many years now, patient's abdominal pain was noted with nausea and vomiting and sharp chest pain. Patient lipase were normal a no midepigastric pain ultrasound of the pelvis showed ovarian cyst follicular in nature. Patient also seen by Nephrology during hospice visit. Patient continue to use narcotic for pain control. Patient has been running low potassium which were placed. Patient medically stable hemoglobin is stable potassium is 3 oral potassium has been given prescription has been sent. Patient is cleared to discharge. Patient advised not to use narcotics for pain control reduce Tylenol. Also recommend to see a broomcorn grader as outpatient for a complete calc exam and follow-up on the ovarian cyst. Diet exercise exercise weight loss routine exam will also get a sleep study done as an outpatient, monitor cholesterol and thyroid levels as outpatient follow-up PCP in 1 week Time spent discussing smoking cessation with patient: more than 10 minutes Status at Discharge Functional status at discharge: independent ambulation Time Spent with Patient Time attestation: Total time spent providing and/or coordinating discharge services: Time spent: Less than 30 minutes Exam Const: General: comfortable HENMT: Ears: TM's normal bilaterally Mouth: Yes moist mucous membranes Eyes: General: appearance normal, both eyes and all related structures Pupils: Equal, round and reactive pupils present Neck: Neck: supple and no JVD Resp: Effort & Inspection: normal respiratory effort Auscultation: clear to auscultation bilaterally Cardio: Rate: regular rate Rhythm: regular rhythm GI: GI Palp: Yes Soft to palpation, No Tenderness to palpation present (GI), No Guarding due to palpation present (GI) and No Hernia present Auscultation: normal bowel sounds : Bimanual exam- vagina & uterus: bladder normal to palpation Skin: General skin exam: normal color Neuro: Speech: normal speech Motor exam (neuro): 5/5 motor strength present throughout Sensory Exam: normal sensation Extrem: General: normal to inspection Psych: Affect: normal affect DS: Data Data Completed and Pending Labs on day of discharge: Labs from last 24 hours 04/09/22 04/09/22 04/09/22 11:49 07:44 06:17 WBC RBC Hgb Hct MCV MCH MCHC RDW Plt Count
[2022-04-09 14:00] VITALS: BP 137/84; PULSE 81; RESP 18; TEMP 36.2; O2SAT 96
[2022-04-09 16:22] LABS: Glucose Point of Care 78 mg/dl (65-105)
== END 2022-04-09 17:10 | disposition home or self-care (01) ==
LOC: ANHED 04-03 06:50 → ANH3MEDSUR 04-03 10:09
PROVIDERS: Emergency Medicine; Internal Medicine; Internal Medicine Nephrology; Student in an Organized Health Care Education/Training Program; Admitting Provider Internal Medicine; Emergency Provider Nurse Practitioner Family; PCP Physician Assistant; Visit Provider Internal Medicine
DX: E78.1 Pure hyperglyceridemia (principal); R10.84 Generalized abdominal pain; E78.3 Hyperchylomicronemia; R07.9 Chest pain, unspecified; E11.65 Type 2 diabetes mellitus with hyperglycemia; E66.9 Obesity, unspecified; Z68.31 Body mass index [BMI] 31.0-31.9, adult; F41.9 Anxiety disorder, unspecified; N20.0 Calculus of kidney; F32.9 Major depressive disorder, single episode, unspecified; Z20.822 Contact with and (suspected) exposure to COVID-19; E78.5 Hyperlipidemia, unspecified; E03.9 Hypothyroidism, unspecified; K57.92 Diverticulitis of intestine, part unspecified, without perforation or abscess without bleeding; K52.9 Noninfective gastroenteritis and colitis, unspecified; K76.0 Fatty (change of) liver, not elsewhere classified; Z23 Encounter for immunization; R94.31 Abnormal electrocardiogram [ECG] [EKG]; F17.210 Nicotine dependence, cigarettes, uncomplicated; Z79.4 Long term (current) use of insulin; Z79.84 Long term (current) use of oral hypoglycemic drugs; Z79.899 Other long term (current) drug therapy
CPT/HCPCS: 36556; 36415; 36514; 71046; 74177; 76856; 80053; 80069; 82948; 83690; 84478; 84484; 85025; 85610; 85730; 86850; 86900; 86901; 87040; 87636; 90471; 90686; 93005; 96361; 96365; 96374; 96375; 96376; 99285; A9270; C1752; G0008; G0378; J0131; J0610; J1170; J1200; J1644; J2270; J2405; J3480; J7030; J7040; P9045; Q9967

== ENCOUNTER 2022-07-03 21:03 | Inpatient (IN) | payer MEDICARE, SELFPAY ==
--- NOTE | ~2022-07-03 | CT_ITS ---
EXAMINATION: CT abdomen pelvis w con DATE: 07/04/2022 01:23 INDICATION: Epigastric abdominal pain, nausea, diarrhea. History of chronic pancreatitis. TECHNIQUE: Computed tomography (CT) of the abdomen and pelvis was performed with 100 CC Omnipaque 350 intravenous contrast. Automated exposure control and iterative reconstruction technique were employe d. Exam dose: 1016.43 mGy-cm total exam DLP. COMPARISON: 04/03/2022 CT abdomen pelvis FINDINGS: Minimal bilateral dependent lower lobe atelectasis. Normal heart size. No pericardial or pleural effusion. Hepatic steatosis. No hepatic, splenic, pancreatic, adrenal or renal space-occupying mass lesion is d etected. Pinpoint nonobstructing lower pole left renal calculus. No other urinary tract calculus or hydrourete ronephrosis. The left renal pelvis is anteriorly directed consistent with incomplete rotation of the left kidney. There is atherosclerotic calcification but normal caliber of the abdominal aorta and iliac arteries. No intraperitoneal or retroperitoneal or pelvic mass lesion or adenopathy or ascites. Status post hysterectomy. The ovaries and urinary bladder is unremarkable. Mild colonic diverticulosis; no CT evidence of diverticulitis. The appendix is not localized. No gus l obstruction or intraperitoneal free air. Small fat-containing umbilical hernia. Included skeletal structures are unremarkable. IMPRESSION: No CT evidence of pancreatitis, which does not necessarily exclude pancreatitis Mild colonic diverticulosis; no evidence of diverticulitis Hepatic steatosis Pinpoint nonobstructing lower pole left renal calculus Status post hysterectomy Reviewed, dictated and finalized at [facility]. Reviewed, dictated and finalized at [facility]. PRESSER
[2022-07-03 21:26] VITALS: BP 134/85; PULSE 86; RESP 20; TEMP 36.3; O2SAT 99
[2022-07-03 21:41] LABS: Basophils Absolute Auto 0.1 K/mm3 (0.0-0.1); Basophils Percent Auto 0.7 % (0.2-1.2); Eosinophils Absolute Auto 0.1 K/mm3 (0-0.3); Eosinophils Percent Auto 0.9 % (0-4.4); Hematocrit 39.5 % (37.0-47.0); Hemoglobin 13.2 g/dL (12.0-15.0); Immature Granulocyte Absolute 0.05 K/mm3 (0.00-0.031); Immature Granulocyte Percent A 0.7 % (0-0.5); Lymphocytes Absolute Auto 2.39 K/mm3 (0.9-3.2); Lymphocytes Percent Auto 31.6 % (18.3-44.2); Mean Corpuscular HGB Conc 33.4 g/dl (32-36); Mean Corpuscular Hemoglobin 30.5 pg (26-34); Mean Corpuscular Volume 91.2 fl (80-100); Monocytes Absolute Auto 0.5 K/mm3 (0.1-0.6); Monocytes Percent Auto 6.1 % (2.6-8.5); Neutrophils Absolute Auto 4.5 K/mm3 (1.3-6.7); Platelet Count Result 264 k/mm3 (150-375); Red Blood Count 4.33 M/mm3 (4.2-5.4); Red Cell Distribution Width 14.2 % (11.5-14.5); White Blood Count 7.6 K/mm3 (4.5-10.0)
[2022-07-03 21:51] LABS: Alanine Aminotransferase 18 U/L (6-35); Albumin Level 4.7 g/dL (3.5-5.1); Alkaline Phosphatase 77 U/L (38-126); Anion Gap 8 mmol/L (8-16); Aspartate Amino Transferase 22 U/L (14-36); Bilirubin,Total 0.5 mg/dL (0.2-1.3); Blood Urea Nitrogen 15 mg/dL (7-17); Calcium 9.4 mg/dL (8.4-10.2); Carbon Dioxide 27 mmol/L (22-30); Chloride 101 mmol/L (98-107); Estimated CRCL calculation 108 ml/min; Estimated Glomerular Filt Rate > 60; Glucose 167 mg/dL (65-110); Lipase 123 U/L (23-300); Potassium 3.8 mmol/L (3.4-5.0); Sodium 136 mmol/L (137-145)
[2022-07-03 22:14] LABS: Appearance Urine Clear (Clear); Bilirubin Urine Negative (Negative); Blood Urine Negative (Negative); Color Urine Yellow (Yellow); Glucose Urine UA 3+ mg/dL (Negative); Ketones Urine Negative (Negative); Leukocyte Esterase Ur Negative LEU/UL (Negative); Nitrate Urine Negative (Negative); Protein Urine Negative (Negative); Specific Grav Ur 1.033 (1.001-1.035); Urobilinogen Urine 0.2 mg/dL (<2.0); pH Urine 5.5 (5.0-9.0)
[2022-07-03 22:27] LABS: Add Urine Microscopic? NO
[2022-07-03 23:40] VITALS: PULSE 80; RESP 17; O2SAT 99
[2022-07-03 23:41] VITALS: BP 121/46; PULSE 83; RESP 10; O2SAT 99
[2022-07-03 23:45] VITALS: PULSE 79; RESP 14; O2SAT 97
[2022-07-03 23:46] VITALS: BP 121/72; PULSE 77; RESP 12; O2SAT 97
[2022-07-04] VITALS (50 sets, daily range): BP systolic 78–135; BP diastolic 41–84; PULSE 69–82; RESP 7–22; TEMP 35.8–36.1; O2SAT 88–100; BMI 33.3
--- NOTE | 2022-07-04 00:27 | ECG_ITS ---
Measurements Intervals [place] Rate: 73 P: 49 CA: 182 QRS: 42 QRSD: 93 T: -18 QT: 397 QTc: 439 Interpretive Statements SINUS RHYTHM BORDERLINE ST-T WAVE ABNORMALITY- ANT/INF LEADS BORDERLINE ECG COMPARED TO ECG 04/02/2022 20:32:07 NO SIGNIFICANT CHANGES Electronically Signed On 07-04-2022 6:41:07 DRUG AND ALCOHOL COUNSELLOR by Baron Bowers D.O.
--- NOTE | 2022-07-04 00:30 | ED.ABDPAIN ---
HPI - Abdominal Pain General Chief Complaint: Abdominal Pain <DARI Lamar Last Filed: 07/04/22 03:36> Stated Complaint: abdominal pain <DARI Lamar Last Filed: 07/04/22 03:36> Time Seen by Provider: 07/03/22 23:38 <DARI Lamar Last Filed: 07/04/22 03:36> Source: patient and old records reviewed <DARI Lamar Last Filed: 07/04/22 03:36> Mode of arrival: ambulatory <DARI Lamar Last Filed: 07/04/22 03:36> Limitations: no limitations <DARI Lamar Last Filed: 07/04/22 03:36> History of Present Illness HPI narrative: Patient is a 46-year-old female, with a past medical history of chronic pancreatitis, lipoprotein lipase deficiency, who presents to the ED with report of epigastric abdominal pain. Patient reports having chronic abdominal pain, rated 2-3 out of 10 on the pain scale. She states her pain began increasing last week and became significantly worse yesterday into today. She rates her pain an 8 out of 10 currently. She is prescribed tramadol at home and took this this afternoon without much relief. Patient typically sees her chainer at [facility]. She states she drove there tonight, but was told she had a 5-hour wait in the ED. She then presented here. Patient also reports having nausea and diarrhea, denies vomiting, fever, rectal bleeding, melena, chest pain, difficulty breathing, urinary symptoms. <DARI Lamar Last Filed: 07/04/22 03:36> Related Data Home Medications: Home Medications Medication Instructions Recorded Confirmed empagliflozin 25 mg tablet 25 mg PO DAILY 10/20/20 04/03/22 (Jardiance) metformin 500 mg tablet 1,000 mg PO BID 10/20/20 04/03/22 citalopram 40 mg tablet 40 mg PO DAILY 04/03/22 04/03/22 insulin aspart U-100 100 unit/mL 0 unit subcut TID 04/03/22 04/03/22 (3 mL) subcutaneous pen (Novolog FlexPen U-100 Insulin aspart) insulin glargine 100 unit/mL (3 35 unit subcut BID 04/03/22 04/03/22 mL) subcutaneous pen (Basaglar KwikPen U-100 Insulin) <Susan Diaz PA-C - Last Filed: 07/04/22 03:36> Allergies/Adverse Reactions: Allergies Allergy/AdvReac Type Severity Reaction Status Date / Time adhesive tape Allergy Mild Rash Verified 07/03/22 23:37 green pepper Allergy Unknown unknown Verified 07/03/22 23:37 <Susan Diaz PA-C - Last Filed: 07/04/22 03:36> Review of Systems Review of Systems: CONSTITUTIONAL: Denies fever, chills, or sweats. CARDIOVASCULAR: Denies chest pain. RESPIRATORY: Denies dyspnea. GASTROINTESTINAL: See HPI. GENITOURINARY: Denies dysuria or hematuria. <Susan Diaz PA-C - Last Filed: 07/04/22 03:36> All systems reviewed & are unremarkable except as noted in HPI and below <Susan Diaz PA-C - Last Filed: 07/04/22 03:36> [facility] Past Medical History Medical History: Medical History Allergies Anxiety Anxiety Chylomicronemia syndrome Headache History of HPV infection Hyperlipemia Hypertriglyceridemia Lipoprotein deficiency Port-A-Cath in place Thyroid disorder <Susan Diaz PA-C - Last Filed: 07/04/22 03:36> Surgical History Surgical History: Surgical History H/O LEEP History of conization of cervix History of dilatation and curettage History of exploratory laparotomy History of tonsillectomy S/P appendectomy S/P endometrial ablation S/P partial hysterectomy Tubal ligation status [place] teeth removed <Susan Diaz PA-C - Last Filed: 07/04/22 03:36> Family History Family History: Family History Other Alcohol abuse Cerebrovascular accident Heart disease History of cancer History of thyroid disorder Hypertension
[2022-07-04] MEDS: SODIUM CHLORIDE 0.9% IV 1,000 ML 999 ML IV CONT ×2 (00:42→03:37)
[2022-07-04] MEDS: ONDANSETRON INJ 4 MG/2 ML VIAL IV PUSH ×3 (00:43→21:00)
[2022-07-04] MEDS: PANTOPRAZOLE SODIUM IV 40 MG VIAL IV PUSH (00:43)
[2022-07-04 00:57] LABS: Triglycerides 1156 mg/dL (<150)
[2022-07-04] MEDS: MORPHINE SULFATE (*CRX) 4 MG/ML INJ IV PUSH ×2 (01:50→03:38)
[2022-07-04] MEDS: FAMOTIDINE 20 MG/2 ML VIAL IV PUSH (04:53)
[2022-07-04] MEDS: HYDROmorphone HCL INJ (*CRX) 1 MG/ML SYR 0.5 MG IV PUSH ×6 (04:54→21:22)
--- NOTE | 2022-07-04 05:19 | PC.NURSE ---
Per MD Conner, all AM labs to start tomorrow morning 07/05/22, not to be drawn this AM 07/04/22.
[2022-07-04] MEDS: LACTATED RINGERS 1,000 ML 125 ML IV CONT ×2 (05:36→17:01)
[2022-07-04 06:23] LABS: Influenza A QL RT-PCR Negative (Negative); Influenza B QL RT-PCR Negative (Negative); SARS-CoV-2 RNA PCR Negative
--- NOTE | 2022-07-04 06:52 | ADMGEN ---
This patient, Casandra Jones, was admitted to [facility] Surg Room 309-01. Patient/family oriented to hospital policies and general routines including ID bracelet, bed and alarms, visiting hours, pain management, procedures, bathroom and other care routines, personal items, smoking policy, room service/diet, and visiting hours. Information on how to activate the Rapid Response Team has been discussed. Patient/Family are encouraged to report perceived risks to care and to ask questions if they do not understand what they are told or what they should do.
[2022-07-04 07:07] LABS: Glucose Point of Care 68 mg/dl (65-105)
--- NOTE | 2022-07-04 08:09 | PC.NURSE ---
This patient, Casandra Jones, was admitted to [facility] Surg Room 309-01. Patient/family oriented to hospital policies and general routines including ID bracelet, bed and alarms, visiting hours, pain management, procedures, bathroom and other care routines, personal items, smoking policy, room service/diet, and visiting hours. Information on how to activate the Rapid Response Team has been discussed. Patient/Family are encouraged to report perceived risks to care and to ask questions if they do not understand what they are told or what they should do.
--- NOTE | 2022-07-04 08:12 | WPDGICN ---
Assessment and Plan Assessment and plan (1) Chronic pancreatitis: Code(s): K86.1 - Other chronic pancreatitis Status: Acute Assessment and Plan: Patient has a history of chronic pancreatitis on the basis of hyperlipidemia. Admitted the hospital with an exacerbation of pain. Currently on multiple lipid-lowering agents. Also a low-fat diet the should continue. She likely will need plasmapheresis to lower her lipids. Continue supportive care. Initially and p.o. and pain control. Advance diet slowly when pain is improved. (2) Hypertriglyceridemia: Code(s): E78.1 - Pure hyperglyceridemia Status: Acute Assessment and Plan: Patient with marked elevated lipids. Currently triglycerides are 1156. Plan to continue lipid-lowering agents and low-fat diet. Likely will need plasmapheresis. Consult Renal Service to accomplish this. 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 HPI: Casandra Jones is a 46 year old female With hyperlipidemia admitted the hospital with abdominal pain and chronic pancreatitis. Patient has a history of chylomicronemia. She is known to have hyperlipidemia. This is caused her to have chronic pancreatitis. Patient has chronic abdominal pain on this basis. Currently followed [place] at the Gastroenterology service there. She is on several lipid lowering agents. Is on a low-fat diet. Intermittently has severe abdominal pain attributed elevated lipids. She has felt to have pancreatitis on this basis. CT scan in the ER not yet read. Patient states over last 1 week abdominal pain worsened prompting her to go to the emergency room and subsequently admitted to the hospital. Her family history is noncontributory. Past medical history is significant for diabetes, and hyperlipidemia. Review of Systems Review of Systems: review of systems noncontributory. [facility] Past Medical History Medical History Allergies Anxiety Anxiety Chylomicronemia syndrome Headache History of HPV infection Hyperlipemia Hypertriglyceridemia Lipoprotein deficiency Port-A-Cath in place Thyroid disorder Surgical History Surgical History H/O LEEP History of conization of cervix History of dilatation and curettage History of exploratory laparotomy History of tonsillectomy S/P appendectomy S/P endometrial ablation S/P partial hysterectomy Tubal ligation status [place] teeth removed Family History Family History Other Alcohol abuse Cerebrovascular accident Heart disease History of cancer History of thyroid disorder Hypertension Kidney disorder Social History Social History Smoking packs per day: 1 Smoking cigarettes per day: 20.0 Years smoked: 20 Smoking pack-years: 20.00 Smoking status: Current every day smoker Tobacco type: cigarettes Alcohol intake: never Substance use: never Substance use type: does not use Lack of Transportation: No Lack of Food: Never True Current Housing: I Have Housing Concerned About Future Housing: No Difficulty Paying Gas/Electric Bills: No Difficulty Paying for Meds: No Currently Unempl
--- NOTE | 2022-07-04 10:05 | PM.IMHP ---
H&P: HPI History of Present Illness Date/Time: 07/04/22 10:05 Chief Complaint: Abdominal pain Narrative: Patient is a 46-year-old female, with a past medical history of chronic pancreatitis, lipoprotein lipase deficiency, who presents to the ED with report of epigastric abdominal pain.? Patient reports having chronic abdominal pain, rated 2-3 out of 10 on the pain scale.? She states her pain began increasing last week and became significantly worse yesterday into today.? She rates her pain an 8 out of 10 currently.? She is prescribed tramadol at home and took this this afternoon without much relief.? Patient typically sees her applied exercise physiologist at [facility].? She states she drove there tonight, but was told she had a 5-hour wait in the ED.? She then presented here.? Patient also reports having nausea and diarrhea, denies vomiting, fever, rectal bleeding, melena, chest pain, difficulty breathing, urinary symptoms. Review of Systems Review of Systems: - CONSTITUTIONAL: Denies weight loss, fever and chills. - HEENT: Denies changes in vision and hearing - RESPIRATORY: Denies SOB and cough. - CV: Denies palpitations and CP. - GI: reports abdominal pain, nausea, denies vomiting and diarrhea. - : Denies dysuria and urinary frequency. - MSK: Denies myalgia and joint pain. - SKIN: Denies rash and pruritus. - NEUROLOGICAL: Denies headache and syncope. - PSYCHIATRIC: Denies recent changes in mood. Denies anxiety and depression. PMFSH Past Medical History Medical History Allergies Anxiety Anxiety Chylomicronemia syndrome Headache History of HPV infection Hyperlipemia Hypertriglyceridemia Lipoprotein deficiency Port-A-Cath in place Thyroid disorder Surgical History Surgical History H/O LEEP History of conization of cervix History of dilatation and curettage History of exploratory laparotomy History of tonsillectomy S/P appendectomy S/P endometrial ablation S/P partial hysterectomy Tubal ligation status [place] teeth removed Family History Family History (Updated 07/04/22 @ 08:15 by Nia Pratt RN) Father Alcohol abuse Hypertension Mother Hypothyroid Cerebrovascular accident Grandparent Skin cancer Colon cancer Heart disease Hypothyroid Cerebrovascular accident Sibling Hypothyroid Kidney disorder Hypertension Autoimmune disorder Social History Social History Smoking packs per day: 1 Smoking cigarettes per day: 20.0 Years smoked: 30 Smoking pack-years: 30.00 Smoking status: Current every day smoker Tobacco type: cigarettes Alcohol intake: never Substance use: never Substance use type: does not use Lack of Transportation: No Lack of Food: Never True Current Housing: I Have Housing Concerned About Future Housing: No Difficulty Paying Gas/Electric Bills: No Difficulty Paying for Meds: No Currently Unemployed: No Education: Associate Degree Difficulty w/ Childcare or Family Care: No Spiritual care concerns: No Meds Home Medications and Allergies Home Medications Medication Instructions Recorded Confirmed Type fenofibrate nanocrystallized 145 145 mg PO DAILY #90 tabs 12/07/19 07/04/22 Rx mg tablet empagliflozin 25 mg tablet 25 mg PO DAILY 10/20/20 07/04/22 History (Jardiance) metformin 500 mg tablet 1,000 mg PO BID 10/20/20 07/04/22 History pen needle, diabetic 32 gauge x #360 ea 10/20/20 07/04/22 Rx 07/12 (Comfort EZ Pen [place]) levothyroxine 200 mcg tablet 200 mcg PO DAILY #90 tabs 12/07/20 07/04/22 Rx rosuvastatin 20 mg tablet 20 mg PO DAILY #90 tabs 12/07/20 07/04/22 Rx pantoprazole 40 mg tablet,delayed 40 mg PO QAM #90 tabs 06/02/21 07/04/22 Rx release bupropion HCl 150 mg tablet,12 hr 150 mg PO DAILY #90 tabs 10/26/21
[2022-07-04] MEDS: KETOROLAC 30 MG/ML VIAL (*BKC) 15 MG IV PUSH (10:42)
[2022-07-04] MEDS: PANTOPRAZOLE 40 MG TABLET PO (11:31)
[2022-07-04] MEDS: EMPAGLIFLOZIN 25 MG TABLET PO (11:32)
[2022-07-04] MEDS: CITALOPRAM HYDROBROMIDE 20 MG TABLET 40 MG PO (11:32)
[2022-07-04] MEDS: FENOFIBRATE NANOCRYSTALLIZED 145 MG TABLET PO (11:32)
[2022-07-04 11:36] LABS: Glucose Point of Care 99 mg/dl (65-105)
[2022-07-04] MEDS: traMADol HCL (*CRX) 50 MG TABLET PO (12:25)
[2022-07-04] MEDS: buPROPion HCL SR (12 HR) 150 MG TAB PO ×2 (12:25→21:00)
[2022-07-04] MEDS: LEVOTHYROXINE SODIUM 100 MCG TABLET 200 MCG PO (12:26)
--- NOTE | 2022-07-04 14:12 | PM.CNNEP ---
Assessment and Plan Assessment and plan (1) Hypertriglyceridemia: Code(s): E78.1 - Pure hyperglyceridemia Status: Chronic Assessment and Plan: elevated triglyceride level noted appears symptomatic with regard to this issue will initiate plasmapheresis -- first session scheduled for tomorrow goal of therapy is get triglyceride level less than 600 continue ongoing medical therapy Will continue to follow. History of Present Illness Reason for Consult Consult date: 07/04/22 Reason for consult: Other (Plasmapheresis) Chief Complaint Chief complaint: chronic pancreatitis History of Present Illness Narrative: The patient is a 46-year-old female with an extensive past medical history as outlined below who presented to [facility] Emergency room with complaints of abdominal pain. The patient reports the abdominal pain is localized to the epigastric area and rated the pain as a 2 - 3 out of 10 in severity when it first started about a week ago. Unfortunately, the abdominal pain has significantly progressed to the point where she presented to the emergency room with the pain at 8 out of 10 in severity. She is tempted take medications for her pain including tramadol but this at little of fact. She gets most of her care in hospitals in [place] and she went to [facility] ER initially for this issue was told that she would have a 5 hr wait in the emergency room. She has said came to [facility] Emergency room due to this fact. Other associated symptoms including nausea and mild diarrhea but no vomiting, fever, hematochezia, melena, shortness of breath, or chest pain. Workup and evaluation in the emergency demonstrated the patient to be hemodynamically stable and routine blood test demonstrated stable renal function, electrolytes, and CBC. Her lipase was normal but her however triglyceride level was quite elevated at 1156. CT imaging did not demonstrate any acute pancreatitis but did show evidence of chronic pancreatitis Which is consistent with her known past medical history. Given her complex history at baseline, she was started on IV fluids and admitted to the hospital for further evaluation and therapy. Since her admission, she has been seen in consultation by Gastroenterology and there was some concern that her elevated triglyceride level may be exacerbating her known history of pancreatitis. In the past, particularly on previous hospitalizations here at [facility], she has responded to plasmapheresis with regard to lowering her triglyceride level. Renal consultation was requested due to initiation of plasmapheresis. As already mentioned, the patient has received plasmapheresis in the past for her high triglyceride levels both here at [facility] and at [facility]. She has a power port line in place that has been used for this purpose. When she was hospitalized here in March of 2022, her triglyceride level was quite elevated at around 2000 and she has responded quite well with two sessions of plasmapheresis with significant improvement in her triglyceride level. Currently, at the time my visit, she still in moderate distress secondary to abdominal pain. Review of Systems Review of Systems: As per HPI. [facility] Past Medical History Medical History Allergies Anxiety Anxiety Chylomicronemia syndrome Headache History of HPV infection Hyperlipemia Hypertriglyceridemia Lipoprotein deficiency Port-A-Cath in place Thyroid disorder Surgical History Surgical History H/O LEEP History of conization of cervix History of dilatation and curettage History of exploratory laparotomy History of tonsillectomy S/P appendectomy S/P endometrial ablation S/P partial hysterectomy Tubal ligation status [place] teeth removed Family History Family History
[2022-07-04 16:15] LABS: Glucose Point of Care 86 mg/dl (65-105)
[2022-07-04] MEDS: ROSUVASTATIN 10 MG TABLET 20 MG PO (17:00)
[2022-07-04] MEDS: metFORMIN HCL 500 MG TABLET 1000 MG PO (17:00)
[2022-07-04 20:30] LABS: Glucose Point of Care 143 mg/dl (65-105)
[2022-07-04] MEDS: traZODone HCL 50 MG TABLET 100 MG PO (21:00)
[2022-07-05] MEDS: LACTATED RINGERS 1,000 ML 125 ML IV CONT ×4 (01:06→23:59)
[2022-07-05] MEDS: HYDROmorphone HCL INJ (*CRX) 1 MG/ML SYR 0.5 MG IV PUSH ×7 (01:07→20:56)
[2022-07-05 06:00] VITALS: BP 104/68; PULSE 70; RESP 17; TEMP 36.2; O2SAT 95
[2022-07-05] MEDS: LEVOTHYROXINE SODIUM 100 MCG TABLET 200 MCG PO (06:07)
[2022-07-05 06:52] LABS: Basophils Percent Auto 0.5 % (0.2-1.2); Eosinophils Absolute Auto 0.1 K/mm3 (0-0.3); Eosinophils Percent Auto 0.8 % (0-4.4); Hematocrit 32.7 % (37.0-47.0); Hemoglobin 10.5 g/dL (12.0-15.0); Immature Granulocyte Absolute 0.05 K/mm3 (0.00-0.031); Immature Granulocyte Percent A 0.8 % (0-0.5); Lymphocytes Absolute Auto 1.94 K/mm3 (0.9-3.2); Lymphocytes Percent Auto 31.8 % (18.3-44.2); Mean Corpuscular HGB Conc 32.1 g/dl (32-36); Mean Corpuscular Hemoglobin 29.7 pg (26-34); Mean Corpuscular Volume 92.6 fl (80-100); Mean Platelet Volume 9.3 fl (7.4-10.4); Monocytes Absolute Auto 0.4 K/mm3 (0.1-0.6); Monocytes Percent Auto 6.5 % (2.6-8.5); Neutrophils Absolute Auto 3.6 K/mm3 (1.3-6.7); Neutrophils Percent Auto 59.6 % (45.5-73.1); Platelet Count Result 205 k/mm3 (150-375); Red Blood Count 3.53 M/mm3 (4.2-5.4); Red Cell Distribution Width 14.6 % (11.5-14.5); White Blood Count 6.1 K/mm3 (4.5-10.0)
[2022-07-05 07:09] LABS: Alanine Aminotransferase 14 U/L (6-35); Albumin Level 3.4 g/dL (3.5-5.1); Alkaline Phosphatase 43 U/L (38-126); Anion Gap 2 mmol/L (8-16); Aspartate Amino Transferase 18 U/L (14-36); Bilirubin,Total 0.3 mg/dL (0.2-1.3); Blood Urea Nitrogen 7 mg/dL (7-17); Calcium 7.8 mg/dL (8.4-10.2); Carbon Dioxide 31 mmol/L (22-30); Chloride 102 mmol/L (98-107); Cholesterol 246 mg/dL (0-200); Estimated CRCL calculation 107 ml/min; Estimated Glomerular Filt Rate > 60; Glucose 132 mg/dL (65-110); HDL Direct 34 mg/dL; Potassium 3.6 mmol/L (3.4-5.0); Sodium 135 mmol/L (137-145); Triglycerides 415 mg/dL (<150)
[2022-07-05 07:16] LABS: LDL Cholesterol Direct 101 mg/dL
[2022-07-05 07:36] LABS: Glucose Point of Care 146 mg/dl (65-105)
[2022-07-05] MEDS: CITALOPRAM HYDROBROMIDE 20 MG TABLET 40 MG PO (08:18)
[2022-07-05] MEDS: PANTOPRAZOLE 40 MG TABLET PO (08:18)
[2022-07-05] MEDS: FENOFIBRATE NANOCRYSTALLIZED 145 MG TABLET PO (08:18)
[2022-07-05] MEDS: EMPAGLIFLOZIN 25 MG TABLET PO (08:18)
[2022-07-05] MEDS: metFORMIN HCL 500 MG TABLET 1000 MG PO ×2 (08:18→16:40)
[2022-07-05] MEDS: buPROPion HCL SR (12 HR) 150 MG TAB PO ×2 (08:18→20:51)
[2022-07-05 11:32] LABS: Glucose Point of Care 87 mg/dl (65-105)
--- NOTE | 2022-07-05 13:04 | PM.PNNEP ---
Progress Note: A&P Assessment and Plan (1) Hypertriglyceridemia: Code(s): E78.1 - Pure hyperglyceridemia Status: Chronic Assessment and Plan: elevated triglyceride level noted on admission however, significant improvement noted by AM labs with current therapy will hold off on plasmapheresis for now follow trend of triglyceride levels continue ongoing medical therapy Will continue to follow. Subjective Date/time seen: 07/05/22 13:04 Plasmapheresis treatment canceled today given the fact that her triglyceride level dropped to 415 by AM labs with ongoing conservative therapy; she still has abdominal pain that appears about the same as on admission. Exam Narrative: General: WD/WN female in NAD Heart: normal S1 and S2; no rub Lungs: clear to auscultation Abdomen: soft, +TTP in epigastric area, positive bowel sounds Extremities: no cyanosis or clubbing; no edema Skin: warm and dry Objective Data Vital Signs Vital Signs: Vital Signs Temp Pulse Resp BP Pulse Ox O2 Del Method 07/05/22 08:18 Room Air 07/05/22 06:00 97.2 F L 70 17 104/68 95 07/04/22 22:00 96.9 F L 77 16 123/82 97 07/04/22 20:00 Room Air 07/04/22 14:00 96.5 F L 76 14 95/58 L 95 Intake/Output Intake/Output: Intake & Output 07/02/22 07/03/22 07/04/22 07/05/22 23:59 23:59 23:59 23:59 Intake Total 4112 1999 Balance 4112 1999 Meds/Results Medications: Active Medications Generic Name Dose Route Start Last Admin Trade Name Freq PRN Reason Stop Dose Admin Alteplase, Recombinant 2 mg 07/05/22 08:00 Alteplase 2 Mg Vial (Cathflo) IV PUSH ONCE PRN Line Occlusion Bupropion HCl 150 mg 07/04/22 11:45 07/05/22 08:18 Bupropion Hcl Sr (12 Hr) 150 Mg Tab PO 150 mg Q12HR RAPHAEL Administration Citalopram Hydrobromide 40 mg 07/04/22 11:00 07/05/22 08:18 Citalopram Hydrobromide 20 Mg Tablet PO 40 mg DAILY RAPHAEL Administration Dextrose 12.5 gm 07/04/22 10:57 Dextrose 50% 25 Gm/50 Ml Syringe IV PUSH PRN PRN Hypoglycemia Protocol Dicyclomine HCl 20 mg 07/04/22 05:05 Dicyclomine Hcl Inj 20 Mg/2 Ml Vial IM Q6H PRN Abdominal Cramping Empagliflozin 25 mg 07/04/22 11:00 07/05/22 08:18 Empagliflozin 25 Mg Tablet PO 25 mg DAILY RAPHAEL Administration Fenofibrate 145 mg 07/04/22 11:00 07/05/22 08:18 Fenofibrate Nanocrystallized 145 Mg Tablet PO 145 mg DAILY RAPHAEL Administration Glucagon 1 mg 07/04/22 10:57 Glucagon For Inj 1 Mg Vial IM PRN PRN Hypoglycemia Protocol Glucose 15 gm 07/04/22 10:57 Glucose Oral Gel 15 Gm Of Glucse In 37.5 Gm Tube PO PRN PRN Hypoglycemia Protocol Hydromorphone HCl 0.5 mg 07/04/22 10:57 07/05/22 11:41 Hydromorphone Hcl Inj (*Crx) 1 Mg/Ml Syr IV PUSH 0.5 mg Q3H PRN Administration Pain Rated 7-10 Lactated Ringer's 1,000 mls @ 125 mls/hr 07/04/22 05:05 07/05/22 08:17 Lr - Lactated Ringers Iv IV CONT 125 mls/hr .Q8H RAPHAEL Administration Dextrose 1,000 mls @ 100 mls/hr 07/04/22 10:57 Dextrose 5% 1,000 Ml IVPB PRN PRN Hypoglycemia Protocol Albumin Human 25 gm in 500 mls @ 125 mls/hr 07/05/22 08:00 Albumin Human 5% IV CONT .Q4H RAPHAEL Insulin Aspart 2 - 5 units 07/04/22 12:00 07/05/22 11:42 Insulin Aspart (*Bkc) 100 Units/Ml SUB-Q Not Given TIDWM RAPHAEL Protocol Ketorolac Tromethamine 15 mg 07/04/22 05:05 07/04/22 10:42 Ketorolac 30 Mg/Ml Vial (*Bkc) IV PUSH 07/09/22 05:04 15 mg Q6H PRN Administration Pain Rated 4-6 IN NPO Levothyroxine Sodium 200 mcg 07/04/22 11:46 07/05/22 06:07 Levothyroxine Sodium 100 Mcg Tablet PO 200 mcg DAILY@0630 RAPHAEL Administration Metformin HCl 1,000 mg 07/04/22 17:00 07/05/22 08:18 Metformin Hcl 500 Mg Tablet PO 1,000 mg BIDWM RAPHAEL Administration Ondansetron HCl 4 mg 07/04/22 05:05 07/04/22 2
[2022-07-05] MEDS: DICYCLOMINE HCL INJ 20 MG/2 ML VIAL IM (13:37)
[2022-07-05 13:56] VITALS: BP 116/76; PULSE 82; RESP 16; TEMP 36; O2SAT 96
--- NOTE | 2022-07-05 14:20 | WPDGIPROGNO ---
Progress Note: A&P Assessment and Plan (1) Abdominal pain: Code(s): R10.9 - Unspecified abdominal pain Status: Acute Assessment and Plan: Patient with rather diffuse abdominal pain. We have been attributing this to chronic pancreatitis based on previous diagnosis in [place]. CT scan imaging however reveals no obvious ago pancreatitis. Her lipase remains normal. Triglyceride level very high on admission is returned to a more normal range at 4:15 a.m. at present. Could there be other etiologies for this pain remains a possibility. Currently on a trial of dicyclomine for spasms. We may need to repeat her GI workup per have her follow up at [facility] where her original workup began. (2) Hypertriglyceridemia: Code(s): E78.1 - Pure hyperglyceridemia Status: Acute Assessment and Plan: Triglycerides have improved. Plan to resort oral medications. Advance diet as tolerated. Start with liquids and advance slowly. (3) Chronic pancreatitis: Code(s): K86.1 - Other chronic pancreatitis Status: Acute Assessment and Plan: Patient felt to have chronic pancreatitis but a present imaging fails to confirm this. Lipase typically is normal in the setting of pancreatitis secondary to hypertriglyceridemia. Subjective Date/time seen: 07/05/22 14:20 Interval history: Patient continues to have abdominal pain. Is rather diffuse. She describes as crampy. somewhat like a menstrual cramp period bowel habits remain normal. No nausea or vomiting. Has not received plasmapheresis at this point. Review of Systems Review of Systems: Review of systems noncontributory. Exam Narrative: Physical exam patient is alert and afebrile. She is anicteric. Vital signs stable. Lungs are clear. Heart without murmur. Abdomen bowel sounds are present soft diffusely tender. Objective Data Vital Signs Vital Signs: Vital Signs - 24 hr 07/04/22 20:00 07/04/22 22:00 07/05/22 06:00 Temperature 96.9 F L 97.2 F L Pulse Rate 77 70 Respiratory Rate 16 17 Blood Pressure 123/82 104/68 Pulse Oximetry 97 95 Oxygen Delivery Room Air 07/05/22 08:18 07/05/22 13:56 Temperature 96.8 F L Pulse Rate 82 Respiratory Rate 16 Blood Pressure 116/76 Pulse Oximetry 96 Oxygen Delivery Room Air Intake/Output Intake/Output: Intake & Output 03/0607/03/22 07/04/22 07/05/22 23:59 23:59 23:59 23:59 Intake Total 4112 1999 Balance 4112 1999 Meds/Results Medications: Active Medications Generic Name Dose Route Start Last Admin Trade Name Freq PRN Reason Stop Dose Admin Alteplase, Recombinant 2 mg 07/05/22 08:00 Alteplase 2 Mg Vial (Cathflo) IV PUSH ONCE PRN Line Occlusion Bupropion HCl 150 mg 07/04/22 11:45 07/05/22 08:18 Bupropion Hcl Sr (12 Hr) 150 Mg Tab PO 150 mg Q12HR RAPHAEL Administration Citalopram Hydrobromide 40 mg 07/04/22 11:00 07/05/22 08:18 Citalopram Hydrobromide 20 Mg Tablet PO 40 mg DAILY RAPHAEL Administration Dextrose 12.5 gm 07/04/22 10:57 Dextrose 50% 25 Gm/50 Ml Syringe IV PUSH PRN PRN Hypoglycemia Protocol Dicyclomine HCl 20 mg 07/04/22 05:05 07/05/22 13:37 Dicyclomine Hcl Inj 20 Mg/2 Ml Vial IM 20 mg Q6H PRN Administration Abdominal Cramping Empagliflozin 25 mg 07/04/22 11:00 07/05/22 08:18 Empagliflozin 25 Mg Tablet PO 25 mg DAILY RAPHAEL Administration Fenofibrate 145 mg 07/04/22 11:00 07/05/22 08:18 Fenofibrate Nanocrystallized 145 Mg Tablet PO 145 mg DAILY RAPHAEL Administration Glucagon 1 mg 07/04/22 10:57 Glucagon For Inj 1 Mg Vial IM PRN PRN Hypoglycemia Protocol Glucose 15 gm 07/04/22 10:57 Glucose Oral Gel 15 Gm Of Glucse In 37.5 Gm Tube PO PRN PRN Hypoglycemia Protocol Hydromorphone HCl 0.5 mg 07/04/22 10:57 07/05/22 11:41 Hydromorphone Hcl Inj (*Crx) 1 Mg/Ml Syr IV PUSH 0.5 mg Q
[2022-07-05] MEDS: ONDANSETRON INJ 4 MG/2 ML VIAL IV PUSH ×2 (14:21→20:56)
--- NOTE | 2022-07-05 14:30 | PM.IMPN ---
Progress Note: A&P Assessment and Plan (1) Epigastric abdominal pain: Code(s): R10.13 - Epigastric pain Status: Acute (2) Hypertriglyceridemia: Code(s): E78.1 - Pure hyperglyceridemia Status: Acute (3) Chronic pancreatitis: Code(s): K86.1 - Other chronic pancreatitis Status: Acute (4) Anxiety: Code(s): F41.9 - Anxiety disorder, unspecified Status: Acute (5) Diabetes mellitus: Qualifiers: Diabetes mellitus complication status: with hyperglycemia Diabetes mellitus intermediate insulin use: without terminal clerk use Diabetes mellitus type: type 2 Qualified Code(s): E11.65 - Type 2 diabetes mellitus with hyperglycemia Code(s): E11.9 - Type 2 diabetes mellitus without complications Status: Acute (6) Hematologic disorder: Code(s): D75.9 - Disease of blood and blood-forming organs, unspecified Status: Acute (7) Obesity (BMI 30.0-34.9): Code(s): E66.9 - Obesity, unspecified Status: Acute (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 Lipase level normal. CbC without leukocytosis. CMP noraml. regularly follows [facility] GI service. add hydrocodone. Advance diet History of chronic pancreatitis requiring plasmapheresis Hypertriglyceridemia triglycerides greater than 1000. renal consulted for plasmapheresis, however tg is down to 400s. plasmapheresis plan on hold. 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 No fever chills no nausea vomiting. Triglyceride is down. Review of Systems Review of Systems: All systems reviewed & are unremarkable except as noted in HPI and below Exam Narrative: GENERAL: Well appearing, obese, non-toxic, in no acute distress. HEAD: Normocephalic, atraumatic. NECK: Supple. No adenopathy, no masses. RESPIRATORY: Airway patent, respirations nonlabored. Clear to auscultation bilaterally, no rales, rhonchi, wheezing. CARDIOVASCULAR: Regular rate and rhythm without murmurs, rubs, or gallops. Peripheral pulses 2+ and equal bilaterally. ABDOMINAL: Soft, mild tenderness epigastric area, nondistended, no hepatosplenomegaly. Normoactive BS. MUSCULOSKELETAL: Moves all extremities. Strength/ROM intact without gross deformities. SKIN: Warm, dry, normal color. No rashes. NEURO: A&O X3. Speech clear. Cranial nerves II-XII grossly intact. Steady gait. No ataxic movements. PSYCHIATRIC: Appropriate mood and affect. Normal interaction. Objective Data Vital Signs Vital Signs: Vital Signs - 24 hr 07/04/22 20:00 07/04/22 22:00 07/05/22 06:00 Temperature 96.9 F L 97.2 F L Pulse Rate 77 70 Respiratory Rate 16 17 Blood Pressure 123/82 104/68 Pulse Oximetry 97 95 Oxygen Delivery Room Air 07/05/22 08:18 07/05/22 13:56 Temperature 96.8 F L Pulse Rate 82 Respiratory Rate 16 Blood Pressure 116/76 Pulse Oximetry 96 Oxygen Delivery Room Air Intake/Output Intake/Output: Intake & Output 07/02/22 07/03/22 07/04/22 07/05/22 23:59 23:59 23:59 23:59 Intake Total 4112 1999 Balance 4112 1999 Meds/Results Medications: Active Medications Generic Name Dose Route Start Last Admin Trade Name Freq PRN Reason Stop Dose Admin Alteplase, Recombinant 2 mg 07/05/22 08:00 Alteplase 2 Mg Vial (Cathflo) IV PUSH ONCE PRN Line Occlusion Bupropion HCl 150 mg 07/04/22 11:45 07/05/22 08:18 Bupropion Hcl Sr (12 Hr) 150 Mg Tab PO 150 mg Q12HR RAPHAEL Administration Citalopram Hydrobromide 40 mg 07/04/22 11:00 07/05/22 08:18 Citalopram Hydrobromide 20 Mg Tablet PO 40 mg DAILY RAPHAEL Administration Dextrose 12.5 gm 07/04/22 10:57 Dextrose 50% 25 Gm/50 M
[2022-07-05] MEDS: ACETAMINOPHEN 325 MG TABLET 650 MG PO (14:43)
[2022-07-05 16:40] LABS: Glucose Point of Care 93 mg/dl (65-105)
[2022-07-05] MEDS: ROSUVASTATIN 10 MG TABLET 20 MG PO (16:40)
[2022-07-05 20:00] VITALS: PULSE 80; RESP 14; O2SAT 95
[2022-07-05] MEDS: HYDROcodone/acetaminophen (*CRX) 5-325 MG TABLET 1 TAB PO (20:51)
[2022-07-05] MEDS: traZODone HCL 50 MG TABLET 100 MG PO (20:51)
[2022-07-05 21:35] VITALS: BP 134/79; PULSE 80; RESP 14; TEMP 36.6; O2SAT 95
[2022-07-05 22:21] LABS: Glucose Point of Care 157 mg/dl (65-105)
[2022-07-06] MEDS: HYDROmorphone HCL INJ (*CRX) 1 MG/ML SYR 0.5 MG IV PUSH ×4 (05:05→22:03)
[2022-07-06] MEDS: LEVOTHYROXINE SODIUM 100 MCG TABLET 200 MCG PO (05:05)
[2022-07-06 05:13] VITALS: BP 121/71; PULSE 73; RESP 14; TEMP 36.6; O2SAT 96
[2022-07-06 06:56] LABS: Basophils Percent Auto 0.4 % (0.2-1.2); Eosinophils Absolute Auto 0.1 K/mm3 (0-0.3); Eosinophils Percent Auto 0.9 % (0-4.4); Hemoglobin 11.4 g/dL (12.0-15.0); Immature Granulocyte Absolute 0.03 K/mm3 (0.00-0.031); Immature Granulocyte Percent A 0.5 % (0-0.5); Lymphocytes Absolute Auto 1.91 K/mm3 (0.9-3.2); Lymphocytes Percent Auto 34.9 % (18.3-44.2); Mean Corpuscular HGB Conc 32.6 g/dl (32-36); Mean Corpuscular Hemoglobin 29.5 pg (26-34); Mean Corpuscular Volume 90.4 fl (80-100); Mean Platelet Volume 9.1 fl (7.4-10.4); Monocytes Absolute Auto 0.4 K/mm3 (0.1-0.6); Monocytes Percent Auto 6.4 % (2.6-8.5); Neutrophils Absolute Auto 3.1 K/mm3 (1.3-6.7); Neutrophils Percent Auto 56.9 % (45.5-73.1); Platelet Count Result 210 k/mm3 (150-375); Red Blood Count 3.87 M/mm3 (4.2-5.4); White Blood Count 5.5 K/mm3 (4.5-10.0)
[2022-07-06 07:08] LABS: Alanine Aminotransferase 15 U/L (6-35); Albumin Level 3.8 g/dL (3.5-5.1); Alkaline Phosphatase 53 U/L (38-126); Anion Gap 3 mmol/L (8-16); Aspartate Amino Transferase 20 U/L (14-36); Bilirubin,Total 0.3 mg/dL (0.2-1.3); Blood Urea Nitrogen 7 mg/dL (7-17); Calcium 8.5 mg/dL (8.4-10.2); Carbon Dioxide 31 mmol/L (22-30); Chloride 103 mmol/L (98-107); Estimated CRCL calculation 126 ml/min; Estimated Glomerular Filt Rate > 60; Glucose 103 mg/dL (65-110); Potassium 3.5 mmol/L (3.4-5.0); Sodium 137 mmol/L (137-145); Triglycerides 286 mg/dL (<150)
[2022-07-06] MEDS: LACTATED RINGERS 1,000 ML 125 ML IV CONT (08:04)
[2022-07-06] MEDS: buPROPion HCL SR (12 HR) 150 MG TAB PO ×2 (08:05→20:51)
[2022-07-06] MEDS: EMPAGLIFLOZIN 25 MG TABLET PO (08:05)
[2022-07-06] MEDS: PANTOPRAZOLE 40 MG TABLET PO (08:05)
[2022-07-06] MEDS: CITALOPRAM HYDROBROMIDE 20 MG TABLET 40 MG PO (08:05)
[2022-07-06] MEDS: metFORMIN HCL 500 MG TABLET 1000 MG PO ×2 (08:05→16:48)
[2022-07-06] MEDS: FENOFIBRATE NANOCRYSTALLIZED 145 MG TABLET PO (08:05)
[2022-07-06 08:08] LABS: Glucose Point of Care 88 mg/dl (65-105)
--- NOTE | 2022-07-06 08:27 | PM.IMPN ---
Progress Note: A&P Assessment and Plan (1) Epigastric abdominal pain: Code(s): R10.13 - Epigastric pain Status: Acute (2) Hypertriglyceridemia: Code(s): E78.1 - Pure hyperglyceridemia Status: Chronic (3) Chronic pancreatitis: Code(s): K86.1 - Other chronic pancreatitis Status: Acute (4) Anxiety: Code(s): F41.9 - Anxiety disorder, unspecified Status: Acute (5) Diabetes mellitus: Qualifiers: Diabetes mellitus complication status: with hyperglycemia Diabetes mellitus prison insulin use: without intermediate accountant use Diabetes mellitus type: type 2 Qualified Code(s): E11.65 - Type 2 diabetes mellitus with hyperglycemia Code(s): E11.9 - Type 2 diabetes mellitus without complications Status: Acute (6) Hematologic disorder: Code(s): D75.9 - Disease of blood and blood-forming organs, unspecified Status: Acute (7) Obesity (BMI 30.0-34.9): Code(s): E66.9 - Obesity, unspecified Status: Acute (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 Lipase level normal. CbC without leukocytosis. CMP noraml. regularly follows [facility] GI service. add hydrocodone. Advance diet as tolerated. Triglycerides are coming down will advance to 5 soft diet today History of chronic pancreatitis requiring plasmapheresis in the past Hypertriglyceridemia triglycerides greater than 1000. renal consulted for plasmapheresis, however tg is down to 400s. plasmapheresis plan on hold. 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 No fever chills no nausea vomiting. Triglyceride is down. 07/06/2022: No overnight events continues to report pain level of 7-8. Labs reviewed triglyceride down to 286. Currently on full liquid diet. Abdomen pain has improved. Review of Systems Review of Systems: All systems reviewed & are unremarkable except as noted in HPI and below Exam Narrative: GENERAL: Well appearing, obese, non-toxic, in no acute distress. HEAD: Normocephalic, atraumatic. NECK: Supple. No adenopathy, no masses. RESPIRATORY: Airway patent, respirations nonlabored. Clear to auscultation bilaterally, no rales, rhonchi, wheezing. CARDIOVASCULAR: Regular rate and rhythm without murmurs, rubs, or gallops. Peripheral pulses 2+ and equal bilaterally. ABDOMINAL: Soft, mild tenderness epigastric area, nondistended, no hepatosplenomegaly. Normoactive BS. MUSCULOSKELETAL: Moves all extremities. Strength/ROM intact without gross deformities. SKIN: Warm, dry, normal color. No rashes. NEURO: A&O X3. Speech clear. Cranial nerves II-XII grossly intact. Steady gait. No ataxic movements. PSYCHIATRIC: Appropriate mood and affect. Normal interaction. Objective Data Vital Signs Vital Signs: Vital Signs - 24 hr 07/05/22 13:56 07/05/22 21:35 07/05/22 20:00 Temperature 96.8 F L 98 F Pulse Rate 82 80 80 Respiratory Rate 16 14 14 Blood Pressure 116/76 134/79 Pulse Oximetry 96 95 95 Oxygen Delivery Room Air 07/06/22 05:13 Temperature 97.9 F Pulse Rate 73 Respiratory Rate 14 Blood Pressure 121/71 Pulse Oximetry 96 Oxygen Delivery Intake/Output Intake/Output: Intake & Output 07/03/22 07/04/22 07/05/22 07/06/22 23:59 23:59 23:59 23:59 Intake Total 4112 4472 1300 Balance 4112 4472 1300 Meds/Results Medications: Active Medications Generic Name Dose Route Start Last Admin Trade Name Freq PRN Reason Stop Dose Admin Acetaminophen 650 mg 07/05/22 14:31 07/05/22 14:43 Acetaminophen 325 Mg Tablet PO 650 mg Q6H PRN Administration Headache Hydrocodone Bitart/Acetaminophen 1 tab 07/05/22 16:56 07/05/22 20:51 [place]
[2022-07-06 11:32] LABS: Glucose Point of Care 121 mg/dl (65-105)
[2022-07-06] MEDS: HYDROcodone/acetaminophen (*CRX) 5-325 MG TABLET 1 TAB PO ×2 (12:08→18:52)
[2022-07-06] MEDS: KETOROLAC 30 MG/ML VIAL (*BKC) 15 MG IV PUSH ×3 (13:10→20:52)
[2022-07-06] MEDS: ONDANSETRON INJ 4 MG/2 ML VIAL IV PUSH ×2 (13:13→18:52)
--- NOTE | 2022-07-06 13:19 | PM.PNNEP ---
Progress Note: A&P Assessment and Plan (1) Hypertriglyceridemia: Code(s): E78.1 - Pure hyperglyceridemia Status: Chronic Assessment and Plan: elevated triglyceride level noted on admission now tg 286 no need for plasmapheresis. possibly due to better sugar control? check a1c follow trend of triglyceride levels Will continue to follow. Subjective Date/time seen: 07/06/22 13:19 Interval history: alert. still has some stomach isses. Dr Jones working with patient. Exam Narrative: General: WD/WN female in NAD Heart: normal S1 and S2; no rub Lungs: clear to auscultation Abdomen: soft, +TTP in epigastric area, positive bowel sounds Extremities: no cyanosis or clubbing; no edema Skin: no rash Objective Data Vital Signs Vital Signs: Vital Signs - 24 hr 07/05/22 13:56 07/05/22 21:35 07/05/22 20:00 Temperature 96.8 F L 98 F Pulse Rate 82 80 80 Respiratory Rate 16 14 14 Blood Pressure 116/76 134/79 Pulse Oximetry 96 95 95 Oxygen Delivery Room Air 07/06/22 05:13 07/06/22 08:00 Temperature 97.9 F Pulse Rate 73 Respiratory Rate 14 Blood Pressure 121/71 Pulse Oximetry 96 Oxygen Delivery Room Air Intake/Output Intake/Output: Intake & Output 07/03/22 07/04/22 07/05/22 07/06/22 23:59 23:59 23:59 23:59 Intake Total 4112 4472 1886 Balance 4112 4472 1886 Meds/Results Medications: Active Medications Generic Name Dose Route Start Last Admin Trade Name Freq PRN Reason Stop Dose Admin Acetaminophen 650 mg 07/05/22 14:31 07/05/22 14:43 Acetaminophen 325 Mg Tablet PO 650 mg Q6H PRN Administration Headache Hydrocodone Bitart/Acetaminophen 1 tab 07/05/22 16:56 07/06/22 12:08 Hydrocodone/Acetaminophen (*Crx) 5-325 Mg Tablet PO 1 tab Q4H PRN Administration Pain Rated 7-10 Alteplase, Recombinant 2 mg 07/05/22 08:00 Alteplase 2 Mg Vial (Cathflo) IV PUSH ONCE PRN Line Occlusion Bupropion HCl 150 mg 07/04/22 11:45 07/06/22 08:05 Bupropion Hcl Sr (12 Hr) 150 Mg Tab PO 150 mg Q12HR RAPHAEL Administration Citalopram Hydrobromide 40 mg 07/04/22 11:00 07/06/22 08:05 Citalopram Hydrobromide 20 Mg Tablet PO 40 mg DAILY RAPHAEL Administration Dextrose 12.5 gm 07/04/22 10:57 Dextrose 50% 25 Gm/50 Ml Syringe IV PUSH PRN PRN Hypoglycemia Protocol Dicyclomine HCl 20 mg 07/04/22 05:05 07/05/22 13:37 Dicyclomine Hcl Inj 20 Mg/2 Ml Vial IM 20 mg Q6H PRN Administration Abdominal Cramping Empagliflozin 25 mg 07/04/22 11:00 07/06/22 08:05 Empagliflozin 25 Mg Tablet PO 25 mg DAILY RAPHAEL Administration Fenofibrate 145 mg 07/04/22 11:00 07/06/22 08:05 Fenofibrate Nanocrystallized 145 Mg Tablet PO 145 mg DAILY RAPHAEL Administration Glucagon 1 mg 07/04/22 10:57 Glucagon For Inj 1 Mg Vial IM PRN PRN Hypoglycemia Protocol Glucose 15 gm 07/04/22 10:57 Glucose Oral Gel 15 Gm Of Glucse In 37.5 Gm Tube PO PRN PRN Hypoglycemia Protocol Hydromorphone HCl 0.5 mg 07/05/22 17:18 07/06/22 08:04 Hydromorphone Hcl Inj (*Crx) 1 Mg/Ml Syr IV PUSH 0.5 mg Q3H PRN Administration Breakthrough Pain Lactated Ringer's 1,000 mls @ 75 mls/hr 07/04/22 05:05 07/06/22 08:32 Lr - Lactated Ringers Iv IV CONT 75 mls/hr .[id number] RAPHAEL Infusion Dextrose 1,000 mls @ 100 mls/hr 07/04/22 10:57 Dextrose 5% 1,000 Ml IVPB PRN PRN Hypoglycemia Protocol Albumin Human 25 gm in 500 mls @ 125 mls/hr 07/05/22 08:00 Albumin Human 5% IV CONT .Q4H [facility] Insulin Aspart 2 - 5 units 07/04/22 12:00 07/06/22 11:34 Insulin Aspart (*Bkc) 100 Units/Ml SUB-Q Not Given TIDWM [facility] Protocol Ketorolac Tromethamine 15 mg 07/04/22 05:05 07/06/22 13:10 Ketorolac 30 Mg/Ml Vial (*Bkc) IV PUSH 07/09/22 05:04 15 mg Q6H PRN Administration Pain Rated 4-6 IN NPO Levothyroxine Sodium
--- NOTE | 2022-07-06 13:29 | WPDGIPROGNO ---
Progress Note: A&P Assessment and Plan (1) Abdominal pain: Code(s): R10.9 - Unspecified abdominal pain Status: Acute Assessment and Plan: Patient's abdominal pain is improving. This appears to correlate with decline in her triglyceride level. Triglycerides [address] scan of been unremarkable but she has felt to have chronic pain and pancreatitis on the basis elevated triglycerides. Anticipate continued follow-up at [facility] after discharge. She sees them regularly. Continue lipid-lowering agents and low-fat diet. Advance diet slowly as tolerated. 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 Tolerating liquids with no trouble. Had some recurrent nausea with more solid food intake. Review of Systems Review of Systems: Review of systems noncontributory. Exam Narrative: Physical exam reveals patient be alert afebrile and anicteric. HEENT exam unremarkable. Lungs are clear. Heart without murmur. Abdomen bowel sounds present soft mild diffuse tenderness. Much improved from previous exam. Objective Data Vital Signs Vital Signs: Vital Signs - 24 hr 07/05/22 13:56 07/05/22 21:35 07/05/22 20:00 Temperature 96.8 F L 98 F Pulse Rate 82 80 80 Respiratory Rate 16 14 14 Blood Pressure 116/76 134/79 Pulse Oximetry 96 95 95 Oxygen Delivery Room Air 07/06/22 05:13 07/06/22 08:00 Temperature 97.9 F Pulse Rate 73 Respiratory Rate 14 Blood Pressure 121/71 Pulse Oximetry 96 Oxygen Delivery Room Air Intake/Output Intake/Output: Intake & Output 07/03/22 07/04/22 07/05/22 07/06/22 23:59 23:59 23:59 23:59 Intake Total 4113 5512 5965 Balance 4112 6702 2078 Meds/Results Medications: Active Medications Generic Name Dose Route Start Last Admin Trade Name Freq PRN Reason Stop Dose Admin Acetaminophen 650 mg 07/05/22 14:31 07/05/22 14:43 Acetaminophen 325 Mg Tablet PO 650 mg Q6H PRN Administration Headache Hydrocodone Bitart/Acetaminophen 1 tab 07/05/22 16:56 07/06/22 12:08 Hydrocodone/Acetaminophen (*Crx) 5-325 Mg Tablet PO 1 tab Q4H PRN Administration Pain Rated 7-10 Alteplase, Recombinant 2 mg 07/05/22 08:00 Alteplase 2 Mg Vial (Cathflo) IV PUSH ONCE PRN Line Occlusion Bupropion HCl 150 mg 07/04/22 11:45 07/06/22 08:05 Bupropion Hcl Sr (12 Hr) 150 Mg Tab PO 150 mg Q12HR RAPHAEL Administration Citalopram Hydrobromide 40 mg 07/04/22 11:00 07/06/22 08:05 Citalopram Hydrobromide 20 Mg Tablet PO 40 mg DAILY RAPHAEL Administration Dextrose 12.5 gm 07/04/22 10:57 Dextrose 50% 25 Gm/50 Ml Syringe IV PUSH PRN PRN Hypoglycemia Protocol Dicyclomine HCl 20 mg 07/04/22 05:05 07/05/22 13:37 Dicyclomine Hcl Inj 20 Mg/2 Ml Vial IM 20 mg Q6H PRN Administration Abdominal Cramping Empagliflozin 25 mg 07/04/22 11:00 07/06/22 08:05 Empagliflozin 25 Mg Tablet PO 25 mg DAILY RAPHAEL Administration Fenofibrate 145 mg 07/04/22 11:00 07/06/22 08:05 Fenofibrate Nanocrystallized 145 Mg Tablet PO 145 mg DAILY RAPHAEL Administration Glucagon 1 mg 07/04/22 10:57 Glucagon For Inj 1 Mg Vial IM PRN PRN Hypoglycemia Protocol
[2022-07-06 14:00] VITALS: BP 118/67; PULSE 70; RESP 16; TEMP 36.2; O2SAT 97
[2022-07-06 16:46] LABS: Glucose Point of Care 94 mg/dl (65-105)
[2022-07-06] MEDS: ROSUVASTATIN 10 MG TABLET 20 MG PO (16:48)
[2022-07-06 20:00] VITALS: PULSE 70; RESP 16; O2SAT 97
[2022-07-06] MEDS: traZODone HCL 50 MG TABLET 100 MG PO (20:53)
[2022-07-06 21:19] VITALS: BP 130/79; PULSE 70; RESP 16; TEMP 36.4; O2SAT 97
[2022-07-06] MEDS: LACTATED RINGERS 1,000 ML 75 ML IV CONT (21:30)
[2022-07-06 22:24] LABS: Glucose Point of Care 127 mg/dl (65-105)
[2022-07-07] MEDS: HYDROcodone/acetaminophen (*CRX) 5-325 MG TABLET 1 TAB PO (01:43)
[2022-07-07] MEDS: HYDROmorphone HCL INJ (*CRX) 1 MG/ML SYR 0.5 MG IV PUSH ×2 (03:44→08:08)
[2022-07-07] MEDS: ONDANSETRON INJ 4 MG/2 ML VIAL IV PUSH (03:48)
[2022-07-07 05:56] VITALS: BP 113/53; PULSE 60; RESP 14; TEMP 36.1; O2SAT 96
[2022-07-07] MEDS: LEVOTHYROXINE SODIUM 100 MCG TABLET 200 MCG PO (06:05)
[2022-07-07 06:19] LABS: Basophils Percent Auto 0.8 % (0.2-1.2); Eosinophils Absolute Auto 0.1 K/mm3 (0-0.3); Eosinophils Percent Auto 1.1 % (0-4.4); Hematocrit 38.1 % (37.0-47.0); Hemoglobin 12.1 g/dL (12.0-15.0); Immature Granulocyte Absolute 0.03 K/mm3 (0.00-0.031); Immature Granulocyte Percent A 0.6 % (0-0.5); Lymphocytes Absolute Auto 2.01 K/mm3 (0.9-3.2); Lymphocytes Percent Auto 38.4 % (18.3-44.2); Mean Corpuscular HGB Conc 31.8 g/dl (32-36); Mean Corpuscular Hemoglobin 29.7 pg (26-34); Mean Corpuscular Volume 93.6 fl (80-100); Mean Platelet Volume 9.2 fl (7.4-10.4); Monocytes Absolute Auto 0.4 K/mm3 (0.1-0.6); Monocytes Percent Auto 7.1 % (2.6-8.5); Neutrophils Absolute Auto 2.7 K/mm3 (1.3-6.7); Platelet Count Result 207 k/mm3 (150-375); Red Blood Count 4.07 M/mm3 (4.2-5.4); Red Cell Distribution Width 13.8 % (11.5-14.5); White Blood Count 5.2 K/mm3 (4.5-10.0)
[2022-07-07 06:33] LABS: Alanine Aminotransferase 16 U/L (6-35); Albumin Level 4.1 g/dL (3.5-5.1); Alkaline Phosphatase 53 U/L (38-126); Anion Gap 4 mmol/L (8-16); Aspartate Amino Transferase 24 U/L (14-36); Bilirubin,Total 0.5 mg/dL (0.2-1.3); Blood Urea Nitrogen 9 mg/dL (7-17); Calcium 8.7 mg/dL (8.4-10.2); Carbon Dioxide 30 mmol/L (22-30); Chloride 99 mmol/L (98-107); Estimated CRCL calculation 93 ml/min; Estimated Glomerular Filt Rate > 60; Glucose 107 mg/dL (65-110); Magnesium 1.8 mg/dL (1.6-2.3); Phosphorus 5.4 mg/dL (2.5-4.5); Potassium 3.6 mmol/L (3.4-5.0); Sodium 133 mmol/L (137-145); Triglycerides 379 mg/dL (<150)
[2022-07-07 07:53] LABS: Glucose Point of Care 104 mg/dl (65-105)
[2022-07-07] MEDS: LACTATED RINGERS 1,000 ML 75 ML IV CONT (08:07)
[2022-07-07] MEDS: metFORMIN HCL 500 MG TABLET 1000 MG PO (08:07)
[2022-07-07] MEDS: FENOFIBRATE NANOCRYSTALLIZED 145 MG TABLET PO (08:07)
[2022-07-07] MEDS: PANTOPRAZOLE 40 MG TABLET PO (08:07)
[2022-07-07] MEDS: CITALOPRAM HYDROBROMIDE 20 MG TABLET 40 MG PO (08:07)
[2022-07-07] MEDS: EMPAGLIFLOZIN 25 MG TABLET PO (08:08)
[2022-07-07] MEDS: buPROPion HCL SR (12 HR) 150 MG TAB PO (08:08)
[2022-07-07 08:30] LABS: Hemoglobin A1C 8.4 % (<5.7)
--- NOTE | 2022-07-07 09:52 | WPDGIPROGNO ---
Progress Note: A&P Assessment and Plan (1) Epigastric abdominal pain: Code(s): R10.13 - Epigastric pain Status: Acute Assessment and Plan: Abdominal pain resolved. This most likely related to her hypertriglyceridemia. Plan for supportive care. Strict low-fat diet strongly encouraged. She should remain on lipid-lowering agents. 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 Anticipate discharge today. 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 Reach the ports that pain is almost gone. Anxious to go home. Now tolerating soft diet without much difficulty. Review of Systems Review of Systems: Review of systems noncontributory. Exam Narrative: Physical exam reveals patient to be alert. Vital signs stable. HEENT exam is unremarkable. Patient is anicteric. Lungs are clear to auscultation and percussion. Heart is without murmur. Abdomen bowel sounds present soft no significant localized tenderness. Objective Data Vital Signs Vital Signs: Vital Signs - 24 hr 07/06/22 14:00 07/06/22 21:19 07/06/22 20:00 Temperature 97.2 F L 97.5 F L Pulse Rate 70 70 70 Respiratory Rate 16 16 16 Blood Pressure 118/67 130/79 Pulse Oximetry 97 97 97 Oxygen Delivery Room Air 07/07/22 05:56 07/07/22 08:00 Temperature 97 F L Pulse Rate 60 Respiratory Rate 14 Blood Pressure 113/53 L Pulse Oximetry 96 Oxygen Delivery Room Air Intake/Output Intake/Output: Intake & Output 07/04/22 07/05/22 07/06/22 07/07/22 23:59 23:59 23:59 23:59 Intake Total 4112 4472 3007 1390 Balance 4112 4472 3007 1390 Meds/Results Medications: Active Medications Generic Name Dose Route Start Last Admin Trade Name Freq PRN Reason Stop Dose Admin Acetaminophen 650 mg 07/05/22 14:31 07/05/22 14:43 Acetaminophen 325 Mg Tablet PO 650 mg Q6H PRN Administration Headache Hydrocodone Bitart/Acetaminophen 1 tab 07/05/22 16:56 07/07/22 01:43 Hydrocodone/Acetaminophen (*Crx) 5-325 Mg Tablet PO 1 tab Q4H PRN Administration Pain Rated 7-10 Alteplase, Recombinant 2 mg 07/05/22 08:00 Alteplase 2 Mg Vial (Cathflo) IV PUSH ONCE PRN Line Occlusion Bupropion HCl 150 mg 07/04/22 11:45 07/07/22 08:08 Bupropion Hcl Sr (12 Hr) 150 Mg Tab PO 150 mg Q12HR RAPHAEL Administration Citalopram Hydrobromide 40 mg 07/04/22 11:00 07/07/22 08:07 Citalopram Hydrobromide 20 Mg Tablet PO 40 mg DAILY RAPHAEL Administration Dextrose 12.5 gm 07/04/22 10:57 Dextrose 50% 25 Gm/50 Ml Syringe IV PUSH PRN PRN Hypoglycemia Protocol Dicyclomine HCl 20 mg 07/04/22 05:05 07/05/22 13:37 Dicyclomine Hcl Inj 20 Mg/2 Ml Vial IM 20 mg Q6H PRN Administration Abdominal Cramping Empagliflozin 25 mg 07/04/22 11:00 07/07/22 08:08 Empagliflozin 25 Mg Tablet PO 25 mg DAILY RAPHAEL Administration Fenofibrate 145 mg 07/04/22 11:00 07/07/22 08:07 Fenofibrate Nanocrystallized 145 Mg Tablet PO 145 mg DAILY RAPHAEL Administration Glucagon 1 mg 07/04/22 10:57 Glucagon For Inj 1 Mg Vial IM PRN PRN Hypoglycemia Protocol Glucose 15 gm 07/04/22 10:57 Glucose Oral Gel 15 Gm Of Glucse In 37.5 Gm Tube PO PRN PRN Hypoglycemia Protocol Hydromorphone HCl 0.5 mg 07/05/22 17:18 07/07/22 08:08 Hydromorphone Hcl Inj (*Crx) 1 Mg/Ml Syr IV PUSH 0.5 mg Q3H PRN Administration Breakthrough Pain Lactated Ringer's 1,000 mls @ 75 mls/hr 07/04/22 05:05 07/07/22 08:07 Lr - Lactated Ringers Iv IV CONT 75 mls/hr .[id number]
--- NOTE | 2022-07-07 11:22 | PM.PNNEP ---
Progress Note: A&P Assessment and Plan (1) Hypertriglyceridemia: Code(s): E78.1 - Pure hyperglyceridemia Status: Chronic Assessment and Plan: Triglyceride level today is 379. no need for plasmapheresis Subjective Date/time seen: 07/07/22 11:22 Interval history: alert. feels better. Wants to go home Review of Systems Cardiovascular: Cardiovascular: Reports no additional cardiovascular complaints Respiratory: Respiratory: Reports no additional respiratory complaints Gastrointestinal: Gastrointestinal: Reports no additional gastrointestinal complaints Genitourinary: Genitourinary: Reports no additional female genitourinary complaints Exam Narrative: WDWN in NAD skin no rash head ncat lungs clear cor reg no rub abd BS+ nontender and soft ext no edema. Objective Data Vital Signs Vital Signs: Vital Signs - 24 hr 07/06/22 14:00 07/06/22 21:19 07/06/22 20:00 Temperature 97.2 F L 97.5 F L Pulse Rate 70 70 70 Respiratory Rate 16 16 16 Blood Pressure 118/67 130/79 Pulse Oximetry 97 97 97 Oxygen Delivery Room Air 07/07/22 05:56 07/07/22 08:00 Temperature 97 F L Pulse Rate 60 Respiratory Rate 14 Blood Pressure 113/53 L Pulse Oximetry 96 Oxygen Delivery Room Air Intake/Output Intake/Output: Intake & Output 07/04/22 07/05/22 07/06/22 07/07/22 23:59 23:59 23:59 23:59 Intake Total 4112 4472 3007 1390 Balance 4112 4472 3007 1390 Meds/Results Medications: Active Medications Generic Name Dose Route Start Last Admin Trade Name Freq PRN Reason Stop Dose Admin Acetaminophen 650 mg 07/05/22 14:31 07/05/22 14:43 Acetaminophen 325 Mg Tablet PO 650 mg Q6H PRN Administration Headache Hydrocodone Bitart/Acetaminophen 1 tab 07/05/22 16:56 07/07/22 01:43 Hydrocodone/Acetaminophen (*Crx) 5-325 Mg Tablet PO 1 tab Q4H PRN Administration Pain Rated 7-10 Alteplase, Recombinant 2 mg 07/05/22 08:00 Alteplase 2 Mg Vial (Cathflo) IV PUSH ONCE PRN Line Occlusion Bupropion HCl 150 mg 07/04/22 11:45 07/07/22 08:08 Bupropion Hcl Sr (12 Hr) 150 Mg Tab PO 150 mg Q12HR RAPHAEL Administration Citalopram Hydrobromide 40 mg 07/04/22 11:00 07/07/22 08:07 Citalopram Hydrobromide 20 Mg Tablet PO 40 mg DAILY RAPHAEL Administration Dextrose 12.5 gm 07/04/22 10:57 Dextrose 50% 25 Gm/50 Ml Syringe IV PUSH PRN PRN Hypoglycemia Protocol Dicyclomine HCl 20 mg 07/04/22 05:05 07/05/22 13:37 Dicyclomine Hcl Inj 20 Mg/2 Ml Vial IM 20 mg Q6H PRN Administration Abdominal Cramping Empagliflozin 25 mg 07/04/22 11:00 07/07/22 08:08 Empagliflozin 25 Mg Tablet PO 25 mg DAILY RAPHAEL Administration Fenofibrate 145 mg 07/04/22 11:00 07/07/22 08:07 Fenofibrate Nanocrystallized 145 Mg Tablet PO 145 mg DAILY RAPHAEL Administration Glucagon 1 mg 07/04/22 10:57 Glucagon For Inj 1 Mg Vial IM PRN PRN Hypoglycemia Protocol Glucose 15 gm 07/04/22 10:57 Glucose Oral Gel 15 Gm Of Glucse In 37.5 Gm Tube PO PRN PRN Hypoglycemia Protocol Hydromorphone HCl 0.5 mg 07/05/22 17:18 07/07/22 08:08 Hydromorphone Hcl Inj (*Crx) 1 Mg/Ml Syr IV PUSH 0.5 mg Q3H PRN Administration Breakthrough Pain Lactated Ringer's 1,000 mls @ 75 mls/hr 07/04/22 05:05 07/07/22 08:07 Lr - Lactated Ringers Iv IV CONT 75 mls/hr .[id number] RAPHAEL Administration Dextrose 1,000 mls @ 100 mls/hr 07/04/22 10:57 Dextrose 5% 1,000 Ml IVPB PRN PRN Hypoglycemia Protocol Albumin Human 25 gm in 500 mls @ 125 mls/hr 07/05/22 08:00 Albumin Human 5% IV CONT .Q4H RAPHAEL Insulin Aspart 2 - 5 units 07/04/22 12:00 07/07/22 08:08 Insulin Aspart (*Bkc) 100 Units/Ml SUB-Q Not Given TIDWM [facility] Protocol Ketorolac Tromethamine 15 mg 07/04/22 05:05 07/06/22 20:52 Ketorolac 30 Mg/Ml Vial (*Bkc) IV PUSH 07/09/22 05:04 15 mg
[2022-07-07 11:40] LABS: Glucose Point of Care 159 mg/dl (65-105)
--- NOTE | 2022-07-07 11:57 | PM.DS ---
DS: Admitting Diagnosis Discharge Date 07/07/2022 Admitting Diagnosis Abdominal pain DS: Discharge Diagnosis Discharge Diagnosis (1) Epigastric abdominal pain: Code(s): R10.13 - Epigastric pain Status: Acute (2) Hypertriglyceridemia: Code(s): E78.1 - Pure hyperglyceridemia Status: Chronic (3) Chronic pancreatitis: Code(s): K86.1 - Other chronic pancreatitis Status: Acute (4) Anxiety: Code(s): F41.9 - Anxiety disorder, unspecified Status: Acute (5) Diabetes mellitus: Qualifiers: Diabetes mellitus type: type 2 Diabetes mellitus mcfp insulin use: without mcfp use Diabetes mellitus complication status: with hyperglycemia Qualified Code(s): E11.65 - Type 2 diabetes mellitus with hyperglycemia Code(s): E11.9 - Type 2 diabetes mellitus without complications Status: Acute (6) Hematologic disorder: Code(s): D75.9 - Disease of blood and blood-forming organs, unspecified Status: Acute (7) Obesity (BMI 30.0-34.9): Code(s): E66.9 - Obesity, unspecified Status: Acute (8) 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 Lipase level normal.? CbC without leukocytosis.? CMP noraml. regularly follows [facility] GI service. add hydrocodone.? Advance diet as tolerated and she tolerated low-fat diet.? Triglycerides are coming down without needing plasmapheresis this admission. # history of chronic pancreatitis requiring plasmapheresis in the past # hypertriglyceridemia triglycerides greater than 1000.? renal consulted for plasmapheresis, however tg is down to 400s.? plasmapheresis plan on hold. # diabetes mellitus on insulin regimen from home # chilomicronemia syndrome with recurrent pancreatitis # dVT prophylaxis? Lovenox # code status full code Time Spent with Patient Time attestation: Total time spent providing and/or coordinating discharge services: 35 minute Exam Narrative: GENERAL: Well appearing, obese, non-toxic, in no acute distress. HEAD: Normocephalic, atraumatic. NECK: Supple. No adenopathy, no masses. RESPIRATORY: Airway patent, respirations nonlabored. Clear to auscultation bilaterally, no rales, rhonchi, wheezing. CARDIOVASCULAR: Regular rate and rhythm without murmurs, rubs, or gallops. Peripheral pulses 2+ and equal bilaterally. ABDOMINAL: Soft, nontender epigastric area, nondistended, no hepatosplenomegaly. Normoactive BS. MUSCULOSKELETAL: Moves all extremities. Strength/ROM intact without gross deformities. SKIN: Warm, dry, normal color. No rashes. NEURO: A&O X3. Speech clear. Cranial nerves II-XII grossly intact. Steady gait. No ataxic movements. PSYCHIATRIC: Appropriate mood and affect. Normal interaction. DS: Data Data Completed and Pending Labs on day of discharge: Labs from last 24 hours 07/07/22 07/07/22 07/07/22 11:34 07:45 05:34 WBC RBC Hgb Hct MCV MCH MCHC RDW Plt Count MPV Immature Gran % (Auto) Neut % (Auto) Lymph % (Auto) [place] % (Auto) Eos % (Auto) Baso % (Auto) Lymph # (Auto) [place] # (Auto) Eos # (Auto) Baso # (Auto) Abs Immat Gran (auto) Absolute Neuts (auto) Absolute Nucleated RBC Nucleated RBC % Sodium Potassium Chloride Carbon Dioxide Anion Gap BUN Creatinine Estim Creat Clear Calc Estimated GFR Glucose POC Capillary Glucose 159 H 104 Hemoglobin A1c 8.4 H Calcium Phosphorus Magnesium Total Bilirubin AST ALT Alkaline Phosphatase Total Protein Albumin Triglycerides 07/07/22 07/07/22 07/06/22 05:34 05:34 22:21 WBC 5.2 RBC 4.07 L Hgb 12.1 Hct 38.1 MCV 93.6 MCH 29.7 MCHC 31.8 L RDW 13.8 Plt Count 207 MPV 9.2 Immature
[2022-07-07 14:00] VITALS: BP 122/68; PULSE 67; RESP 16; TEMP 36.4; O2SAT 97
== END 2022-07-07 15:00 | disposition home or self-care (01) | DRG 440 ==
LOC: ANHED 23:47 → ANH3MEDSUR 07-04 07:09
PROVIDERS: Emergency Medicine; Internal Medicine Nephrology; Admitting Provider Internal Medicine; Emergency Provider Physician Assistant; PCP Physician Assistant; Visit Provider Internal Medicine
DX: K86.1 Other chronic pancreatitis (principal); D75.9 Disease of blood and blood-forming organs, unspecified; E78.1 Pure hyperglyceridemia; E78.3 Hyperchylomicronemia; E66.9 Obesity, unspecified; E11.65 Type 2 diabetes mellitus with hyperglycemia; E78.5 Hyperlipidemia, unspecified; F41.9 Anxiety disorder, unspecified; F17.210 Nicotine dependence, cigarettes, uncomplicated; Z68.33 Body mass index [BMI] 33.0-33.9, adult; Z79.84 Long term (current) use of oral hypoglycemic drugs; Z79.4 Long term (current) use of insulin; Z20.822 Contact with and (suspected) exposure to COVID-19; Z90.49 Acquired absence of other specified parts of digestive tract
CPT/HCPCS: 36415; 74177; 80053; 80061; 81003; 81025; 82948; 83036; 83690; 83735; 84100; 84478; 85025; 87636; 93005; 96361; 96365; 96375; 96376; 99285; A9270; C9113; G0378; J0131; J0500; J1170; J1885; J2270; J2405; J7030; J7120; Q9967

== ENCOUNTER 2022-09-02 19:40 | Emergency (ER) | payer MEDICARE, SELFPAY ==
--- NOTE | ~2022-09-02 | XR_ITS ---
EXAMINATION: XR finger 5th RT min 2V DATE: 09/02/2022 20:05 INDICATION: Right hand fifth digit injury and pain. TECHNIQUE: 3 views of right hand fifth digit were obtained. COMPARISON: None. FINDINGS: Bone alignment is normal. No fracture. Joint spaces are normal. IMPRESSION: 1. No fracture. Reviewed, dictated and finalized at location A. IMPRESSION: 1. No fracture.
[2022-09-02 19:53] VITALS: BP 126/77; PULSE 100; RESP 16; TEMP 36.8; O2SAT 99
--- NOTE | 2022-09-02 19:53 | ED.UPPEXIN ---
HPI - Extremity Injury (Upper) General Chief Complaint: Skin/Abscess/Foreign Body Stated Complaint: Pain/red/swelling pinky finger on right hand Time Seen by Provider: 09/02/22 20:00 Source: patient and RN notes reviewed Mode of arrival: ambulatory Limitations: no limitations History of Present Illness HPI narrative: 46-year-old female presents concern for injury to the 5th digit of her right hand. Reports today at 5:00 a.m. she smashed the finger with landscaping break. Reports she used ice. She reports that as the evening went on it became more swollen and discolored. She reports pain with movement. She denies open skin MD complaint: injury to: right and finger Related Data Home Medications Medication Instructions Recorded Confirmed insulin glargine 100 unit/mL (3 35 unit subcut Q12H 04/03/22 07/04/22 mL) subcutaneous pen (Basaglar KwikPen U-100 Insulin) trazodone 100 mg tablet 100 mg PO HS 07/04/22 07/04/22 lisinopril 5 mg tablet mg 09/02/22 Allergies Allergy/AdvReac Type Severity Reaction Status Date / Time adhesive tape Allergy Mild Rash Verified 07/03/22 23:37 green pepper Allergy Unknown unknown Verified 07/03/22 23:37 Review of Systems Review of Systems: CONSTITUTIONAL: Denies malaise, chills, sweats, or fever. SKIN: Denies rash or itching, open skin, laceration, abrasion, redness, warmth MUSCULOSKELETAL: Reports pain, swelling, bruising to the 5th digit of the right hand NEUROLOGIC: Denies numbness, weakness All systems reviewed & are unremarkable except as noted in HPI and below PMFSH Past Medical History Medical History Allergies Anxiety Anxiety Chylomicronemia syndrome Headache History of HPV infection Hyperlipemia Hypertriglyceridemia Lipoprotein deficiency Port-A-Cath in place Thyroid disorder Surgical History Surgical History H/O LEEP History of conization of cervix History of dilatation and curettage History of exploratory laparotomy History of tonsillectomy S/P appendectomy S/P endometrial ablation S/P partial hysterectomy Tubal ligation status [place] teeth removed Family History Family History (Updated 07/04/22 @ 08:15 by Nia Pratt RN) Father Alcohol abuse Hypertension Mother Hypothyroid Cerebrovascular accident Grandparent Skin cancer Colon cancer Heart disease Hypothyroid Cerebrovascular accident Sibling Hypothyroid Kidney disorder Hypertension Autoimmune disorder Social History Social History Smoking packs per day: 1 Smoking cigarettes per day: 20.0 Years smoked: 30 Smoking pack-years: 30.00 Smoking status: Current every day smoker Tobacco type: cigarettes Alcohol intake: never Substance use: never Substance use type: does not use Lack of Transportation: No Lack of Food: Never True Current Housing: I Have Housing Concerned About Future Housing: No Difficulty Paying Gas/Electric Bills: No Difficulty Paying for Meds: No Currently Unemployed: No Education: Associate Degree Difficulty w/ Childcare or Family Care: No Spiritual care concerns: No Comments At time of signature, agree with nursing past medical, surgical, social and family history. There is no relevant family history pertinent to the presenting complaint Exam Narrative: GENERAL: Well-appearing, well-nourished, and in no acute distress. HEAD: Normocephalic EYES: PERRLA, conjunctivae clear NECK: Supple. CHEST: Speaks in full sentences. No respiratory distress. HEART: Regular rate and rhythm. Normal and equal peripheral pulses. EXTREMITIES: 5th digit of right hand has normal sensation. Strength equal. Range of motion limited due to pain and swelling. No clubbing, cyanosis. Tenderness, ecchymosis and edema noted to the mid digit. Skin intact. Nor
== END 2022-09-02 20:15 | disposition home or self-care (01) ==
PROVIDERS: Emergency Provider Nurse Practitioner; PCP Internal Medicine
DX: S60.051A Contusion of right little finger without damage to nail, initial encounter (principal); X58.XXXA Exposure to other specified factors, initial encounter; E78.5 Hyperlipidemia, unspecified; E78.1 Pure hyperglyceridemia; F17.210 Nicotine dependence, cigarettes, uncomplicated
CPT/HCPCS: 29130; 73140; 99213; G0463

== ENCOUNTER 2022-11-19 15:26 | Inpatient (IN) | payer MEDICARE, SELFPAY ==
[2022-11-19] VITALS (8 sets, daily range): BP systolic 124–137; BP diastolic 74–86; PULSE 72–118; RESP 18; TEMP 36–36.4; O2SAT 92–100; BMI 31.4
--- NOTE | ~2022-11-19 | XR_ITS ---
XR chest 1V portable 11/20/2022 17:32 Indication: Shortness of breath Procedure: AP portable chest Comparison: Comparison to multiple prior studies sequentially, with oldest reviewed study dated 10/19. Findings: Central venous catheter lies in the SVC. Heart size is normal. No focal air space disease, pulmonary edema, pleural effusion or suspected pneumothorax. No acute osseous abnormality. Impression: 1: No acute cardiopulmonary disease. Reviewed, dictated and finalized at location A. Impression: 1: No acute cardiopulmonary disease.
--- NOTE | ~2022-11-19 | CT_ITS ---
CT of the Abdomen and Pelvis: Indication: Abdominal pain Technique: 2.5 mm axial scans were obtained through the abdomen and pelvis following intravenous adm inistration of 100 cc of Omnipaque 350. Dose reduction technique was used on this scan by utilizing a utomated exposure control and iterative reconstruction technique. The dose-length product (DLP) was 7 94.53 mGy-cm. COMPARISON: 07/04/2022 Findings: Scans through the lung bases are unremarkable. The liver, spleen, pancreas, gallbladder, adrenals and kidneys are within normal limits. There are atherosclerotic calcifications of the aorta. No lymphadenopathy. No bowel obstruction or bowel wall thickening. There is no evidence to suggest acute appendicitis. Images through the pelvis were performed. Urinary bladder unremarkable. Patient is post hysterectomy. No pelvic mass seen. No ascites. Impression: No acute abnormality seen. Reviewed, dictated and finalized at [facility]. Impression: No acute abnormality seen.
[2022-11-19 17:01] LABS: Basophils Absolute Auto 0.1 K/mm3 (0.0-0.1); Basophils Percent Auto 0.5 % (0.2-1.2); Eosinophils Absolute Auto 0.1 K/mm3 (0-0.3); Eosinophils Percent Auto 0.6 % (0-4.4); Hematocrit 42.5 % (37.0-47.0); Immature Granulocyte Absolute 0.06 K/mm3 (0.00-0.031); Immature Granulocyte Percent A 0.6 % (0-0.5); Lymphocytes Absolute Auto 2.53 K/mm3 (0.9-3.2); Lymphocytes Percent Auto 26.3 % (18.3-44.2); Mean Corpuscular HGB Conc 35.3 g/dl (32-36); Mean Corpuscular Hemoglobin 31.1 pg (26-34); Mean Platelet Volume 9.7 fl (7.4-10.4); Monocytes Absolute Auto 0.5 K/mm3 (0.1-0.6); Monocytes Percent Auto 5.2 % (2.6-8.5); Neutrophils Absolute Auto 6.4 K/mm3 (1.3-6.7); Neutrophils Percent Auto 66.8 % (45.5-73.1); Platelet Count Result 268 k/mm3 (150-375); Red Blood Count 4.83 M/mm3 (4.2-5.4); Red Cell Distribution Width 15.6 % (11.5-14.5); White Blood Count 9.6 K/mm3 (4.5-10.0)
--- NOTE | 2022-11-19 17:14 | ED.GENADULT ---
HPI - General Adult General Chief complaint: Abdominal Pain Stated complaint: my pancreas Time Seen by Provider: 11/19/22 16:45 History of Present Illness HPI narrative: 46-year-old female presents to the emergency room today for complaints of left upper quadrant and epigastric abdominal pain that wraps around to her left back. She has a history of pancreatitis. She has a genetic disorder that causes her triglycerides to be very high. She has a history of necrotizing pancreatitis in 2017 and has had recurrent problems since then. She had an episode of pain about 2 weeks ago but she managed it at home and it did get better. She says that this pain started yesterday and is severe. She has had nausea and vomiting. No fever or chills. She is diabetic reports that her blood sugars have been around 200. She is very tearful and anxious today. Related Data Home Medications Medication Instructions Recorded Confirmed insulin glargine 100 unit/mL (3 35 unit subcut Q12H 04/03/22 07/04/22 mL) subcutaneous pen (Basaglar KwikPen U-100 Insulin) trazodone 100 mg tablet 100 mg PO HS 07/04/22 07/04/22 Allergies Allergy/AdvReac Type Severity Reaction Status Date / Time adhesive tape Allergy Mild Rash Verified 11/19/22 16:55 [place] pepper [green pepper] Allergy Unknown unknown Verified 11/19/22 16:55 Review of Systems Review of Systems: CONSTITUTIONAL: Denies fever, chills, or sweats. EYES: Denies visual changes, redness, or discharge. ENT: Denies rhinorrhea, congestion, sore throat, or otalgia. CARDIOVASCULAR: Denies chest pain, palpitations, or edema. RESPIRATORY: Denies cough or dyspnea. GASTROINTESTINAL: as per HPI GENITOURINARY: Denies dysuria or hematuria. SKIN: Denies rash or itching. MUSCULOSKELETAL: Denies back pain, joint pain, or myalgia. NEUROLOGIC: Denies headache, numbness, dizziness, or weakness. PSYCHIATRIC: Denies anxiety or depression. [facility] Past Medical History Medical History Allergies Anxiety Anxiety Chylomicronemia syndrome Headache History of HPV infection Hyperlipemia Hypertriglyceridemia Lipoprotein deficiency Port-A-Cath in place Thyroid disorder Surgical History Surgical History H/O LEEP History of conization of cervix History of dilatation and curettage History of exploratory laparotomy History of tonsillectomy S/P appendectomy S/P endometrial ablation S/P partial hysterectomy Tubal ligation status [place] teeth removed Family History Family History Father Alcohol abuse Hypertension Mother Hypothyroid Cerebrovascular accident Grandparent Skin cancer Colon cancer Heart disease Hypothyroid Cerebrovascular accident Sibling Hypothyroid Kidney disorder Hypertension Autoimmune disorder Social History Social History Smoking packs per day: 1 Smoking cigarettes per day: 20.0 Years smoked: 30 Smoking pack-years: 30.00 Smoking status: Current every day smoker Tobacco type: cigarettes Alcohol intake: never Substance use: never Substance use type: does not use Lack of Transportation: No Lack of Food: Never True Current Housing: I Have Housing Concerned About Future Housing: No Difficulty Paying Gas/Electric Bills: No Difficulty Paying for Meds: No Currently Unemployed: No Education: Associate Degree Difficulty w/ Childcare or Family Care: No Spiritual care concerns: No Exam Narrative: GENERAL: Well-appearing, well-nourished, and in no acute distress. HEAD: Normocephalic, atraumatic. NECK: Supple. No adenopathy or masses. CHEST: Clear to auscultation. No respiratory distress. No wheezes rales or rhonchi HEART: Regular rate and rhythm. No murmur heard. Normal peripheral pulses. ABDOMEN: Soft, very tender LUQ wi
[2022-11-19] MEDS: HYDROmorphone HCL INJ (*CRX) 1 MG/ML SYR IV PUSH ×4 (17:22→23:51)
[2022-11-19] MEDS: SODIUM CHLORIDE 0.9% IV 1,000 ML 999 ML IV CONT (17:22)
[2022-11-19] MEDS: ONDANSETRON INJ 4 MG/2 ML VIAL IV PUSH (17:22)
[2022-11-19 17:38] LABS: Alanine Aminotransferase 16 U/L (6-35); Albumin Level 4.4 g/dL (3.5-5.1); Alkaline Phosphatase 81 U/L (38-126); Anion Gap 13 mmol/L (8-16); Aspartate Amino Transferase 23 U/L (14-36); Bilirubin,Total 0.8 mg/dL (0.2-1.3); Blood Urea Nitrogen 8 mg/dL (7-17); Carbon Dioxide 21 mmol/L (22-30); Chloride 100 mmol/L (98-107); Estimated CRCL calculation 127 ml/min; Estimated Glomerular Filt Rate > 60; Glucose 191 mg/dL (65-110); Lipase 62 U/L (23-300); Potassium 4.3 mmol/L (3.4-5.0); Sodium 134 mmol/L (137-145)
[2022-11-19 17:44] LABS: Lactic Acid Reflex 1.5 mmol/L (0.7-2.0)
[2022-11-19 17:57] LABS: Appearance Urine Cloudy (Clear); Bacteria Urine 1+ /hpf; Bilirubin Urine Negative (Negative); Blood Urine Negative (Negative); Color Urine Dark Yellow (Yellow); Glucose Urine UA 2+ mg/dL (Negative); Ketones Urine 1+ mg/dL (Negative); Leukocyte Esterase Ur Negative LEU/UL (Negative); Nitrate Urine Negative (Negative); Non Pathogenic Casts 0-2; Protein Urine 2+ mg/dL (Negative); RBC Urine 0-2 /hpf (0-2); Specific Grav Ur 1.027 (1.001-1.035); Squamous Epithelial Cell Urine Few /hpf (Few); pH Urine 6.5 (5.0-9.0)
[2022-11-19 18:29] LABS: Add Urine Microscopic? YES
--- NOTE | 2022-11-19 21:03 | ADMGEN ---
This patient, Casandra Jones, was admitted to Medical Room 247-. Patient/family oriented to hospital policies and general routines including ID bracelet, bed and alarms, visiting hours, pain management, procedures, bathroom and other care routines, personal items, smoking policy, room service/diet, and visiting hours. Information on how to activate the Rapid Response Team has been discussed. Patient/Family are encouraged to report perceived risks to care and to ask questions if they do not understand what they are told or what they should do.
[2022-11-19 21:10] LABS: Triglycerides > 2625 mg/dL (<150)
[2022-11-19] MEDS: SODIUM CHLORIDE 0.9% IV 1,000 ML 125 ML IV CONT (21:36)
[2022-11-19] MEDS: diphenhydrAMINE HCl INJ 50 MG/ML VIAL 25 MG IV PUSH (21:46)
[2022-11-20] VITALS (7 sets, daily range): BP systolic 110–122; BP diastolic 63–73; PULSE 69–77; RESP 16–20; TEMP 35.9–37.2; O2SAT 94
--- NOTE | 2022-11-20 00:42 | PM.IMHP ---
H&P: HPI History of Present Illness Date/Time: 11/19/22 19:00 Chief Complaint: Upper abdominal pain. 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 The patient provides the following history. She developed a constant, aching pain in the upper abdomen about 4 days ago and she has been on bowel rest since that time however her symptoms have not improved and they continue to worsen each day. She now has intermittent sharp and stabbing pain in the left upper quadrant occasionally radiating through to the back. She has also had nausea and vomiting and she has not been able to keep down any of her medications. Symptoms are consistent with prior episodes of pancreatitis and she reports that these episodes tend to occur when her triglyceride levels increase. She has previously been treated with plasmapheresis and insulin drips with previous admissions. She has seen a specialist at the [facility] and all of the treatments they have attempted have not been successful in keeping her triglycerides down. Lipase was normal on arrival to the ED. CT of the abdomen and pelvis did not show any acute pancreatic abnormalities. She denies fever, chills, sweats, chest pain, shortness a breath, hematemesis, melena, and hematochezia. Review of Systems Review of Systems: Twelve systems were reviewed and are negative except for as per HPI. [facility] Past Medical History Medical History (Updated 11/20/22 @ 13:43 by Guerita Snider PA-C) Allergies Anxiety Chylomicronemia syndrome Headache Hyperlipemia Hypertriglyceridemia Insulin dependent diabetes mellitus Lipoprotein deficiency Port-A-Cath in place Thyroid disorder Surgical History Surgical History (Updated 11/20/22 @ 13:44 by Guerita Snider PA-C) History of appendectomy History of conization of cervix History of dilatation and curettage History of endometrial ablation History of exploratory laparotomy History of loop electrical excision procedure (LEEP) History of partial hysterectomy History of tonsillectomy History of tubal ligation History of wisdom tooth extraction Family History Family History Father Alcohol abuse Hypertension Mother Hypothyroid Cerebrovascular accident Grandparent Skin cancer Colon cancer Heart disease Hypothyroid Cerebrovascular accident Sibling Hypothyroid Kidney disorder Hypertension Autoimmune disorder Social History Social History (Updated 11/20/22 @ 13:43 by Guerita Snider PA-C) Social History: Surrogate medical decision maker: José Miguel Adamsder, spouse. Code status: Full code. Smoking packs per day: 1 Smoking cigarettes per day: 20.0 Years smoked: 30 Smoking pack-years: 30.00 Smoking status: Current every day smoker Tobacco type: cigarettes Alcohol intake: never Substance use: never Substance use type: does not use Lack of Transportation: No Lack of Food: Never True Current Housing: I Have Housing Concerned About Future Housing: No Difficulty Paying Gas/Electric Bills: No Difficulty Paying for Meds: No Currently Unemployed: No Education: Associate Degree Difficulty w/ Childcare or Family Care: No Spiritual care concerns: No Meds Home Medications and Allergies Home Medications Medication Instructions Recorded Confirmed Type bupropion HCl 150 mg tablet,12 hr 150 mg PO DAILY #90 tabs 10/26/21 11/19/22 Rx sustained-release trazodone 100 mg tablet 200 mg PO HS 07/04/22 11/19/22 History ondansetron 4 mg disintegrating 4 mg PO Q8H #10 tabs 07/07/22 11/19/22 Rx tablet citalopram 40 mg tablet 40 mg PO DAILY #90 tabs 07/24/22 11/19/22 Rx empagliflozin 25 mg tablet 25 mg PO DAILY #90 tabs 07/24/22 11/19/22 Rx (Jardiance) fenofi
[2022-11-20] MEDS: diphenhydrAMINE HCl INJ 50 MG/ML VIAL 25 MG IV PUSH ×4 (02:15→19:12)
[2022-11-20] MEDS: HYDROmorphone HCL INJ (*CRX) 1 MG/ML SYR IV PUSH ×7 (02:15→21:35)
[2022-11-20] MEDS: ONDANSETRON INJ 4 MG/2 ML VIAL IV PUSH ×3 (02:19→20:11)
[2022-11-20] MEDS: SODIUM CHLORIDE 0.9% IV 1,000 ML 150 ML IV CONT ×3 (04:38→18:40)
[2022-11-20 04:45] LABS: Glucose Point of Care 135 mg/dl (65-105)
[2022-11-20 05:36] LABS: Hematocrit 39.8 % (37.0-47.0); Hemoglobin 13.1 g/dL (12.0-15.0); Mean Corpuscular HGB Conc 32.9 g/dl (32-36); Mean Corpuscular Hemoglobin 30.1 pg (26-34); Mean Corpuscular Volume 91.5 fl (80-100); Mean Platelet Volume 9.9 fl (7.4-10.4); Platelet Count Result 228 k/mm3 (150-375); Red Blood Count 4.35 M/mm3 (4.2-5.4); Red Cell Distribution Width 15.8 % (11.5-14.5); White Blood Count 7.5 K/mm3 (4.5-10.0)
[2022-11-20 05:50] LABS: Alanine Aminotransferase 13 U/L (6-35); Albumin Level 3.7 g/dL (3.5-5.1); Alkaline Phosphatase 46 U/L (38-126); Anion Gap 6 mmol/L (8-16); Aspartate Amino Transferase 25 U/L (14-36); Bilirubin,Total 0.6 mg/dL (0.2-1.3); Blood Urea Nitrogen 6 mg/dL (7-17); Calcium 7.6 mg/dL (8.4-10.2); Carbon Dioxide 27 mmol/L (22-30); Chloride 103 mmol/L (98-107); Estimated CRCL calculation 129 ml/min; Estimated Glomerular Filt Rate > 60; Glucose 127 mg/dL (65-110); Lipase 39 U/L (23-300); Potassium 4.2 mmol/L (3.4-5.0); Sodium 136 mmol/L (137-145)
[2022-11-20] MEDS: PANTOPRAZOLE SODIUM IV 40 MG VIAL IV PUSH (09:26)
--- NOTE | 2022-11-20 10:41 | PM.CNCAR ---
Assessment and Plan Assessment and plan (1) Hypertriglyceridemia: Code(s): E78.1 - Pure hyperglyceridemia Status: Acute Assessment and Plan: Triglyceride level > 2625. Her last level here in June 2022 was 379. Recommend to resume home doses of Fenofibrate and statin if patient able to tolerate oral intake. Recommend consultation with Nephrology for consideration of plasmapheresis given the degree of elevated triglyceride level. History of Present Illness History of Present Illness Consult date/time: 11/20/22 10:41 Requesting physician: Samantha Lynn PA-C Consult reason: Other (Triglycerides >2500) Reason For Visit: Acute Abdominal Pain, Chronic Pancreatitis Narrative: Reason for consult: Triglycerides > 2500 This is a 46-year-old female with history of chronic pancreatitis related to hypertriglyceridemia from chylomicronemia who presented with abdominal pain. Has been ongoing for the past [address] without evidence of acute pancreatitis. Her triglyceride level is greater than 2500. In the past, patient has responded to plasmapheresis to lower her triglyceride level. Patient states it has been a while since she underwent plasmapheresis. Patient's primary unit trust manager is at [facility]. Patient reports being evaluated at [facility] by a specialist and all the treatments they have attempted were not successful in keeping her triglycerides down. Review of Systems Review of Systems: All systems reviewed & are unremarkable except as noted in HPI and below (HPI) PMFSH Past Medical History Medical History Allergies Anxiety Anxiety Chylomicronemia syndrome Headache History of HPV infection Hyperlipemia Hypertriglyceridemia Insulin dependent diabetes mellitus Lipoprotein deficiency Port-A-Cath in place Thyroid disorder Surgical History Surgical History H/O LEEP History of conization of cervix History of dilatation and curettage History of exploratory laparotomy History of tonsillectomy S/P appendectomy S/P endometrial ablation S/P partial hysterectomy Tubal ligation status [place] teeth removed Family History Family History Father Alcohol abuse Hypertension Mother Hypothyroid Cerebrovascular accident Grandparent Skin cancer Colon cancer Heart disease Hypothyroid Cerebrovascular accident Sibling Hypothyroid Kidney disorder Hypertension Autoimmune disorder Social History Social History Smoking packs per day: 1 Smoking cigarettes per day: 20.0 Years smoked: 30 Smoking pack-years: 30.00 Smoking status: Current every day smoker Tobacco type: cigarettes Alcohol intake: never Substance use: never Substance use type: does not use Lack of Transportation: No Lack of Food: Never True Current Housing: I Have Housing Concerned About Future Housing: No Difficulty Paying Gas/Electric Bills: No Difficulty Paying for Meds: No Currently Unemployed: No Education: Associate Degree Difficulty w/ Childcare or Family Care: No Spiritual care concerns: No Meds Home Medications and Allergies Home Medications Medication Instructions Recorded Confirmed Type bupropion HCl 150 mg tablet,12 hr 150 mg PO DAILY #90 tabs 10/26/21 11/19/22 Rx sustained-release trazodone 100 mg tablet 200 mg PO HS 07/04/22 11/19/22 History ondansetron 4 mg disintegrating 4 mg PO Q8H #10 tabs 07/07/22 11/19/22 Rx tablet citalopram 40 mg tablet 40 mg PO DAILY #90 tabs 07/24/22 11/19/22 Rx empagliflozin 25 mg tablet 25 mg PO DAILY #90 tabs 07/24/22 11/19/22 Rx (Jardiance) fenofibrate nanocrystallized 145 145 mg PO DAILY #90 tabs 07/24/22 11/19/22 Rx mg tablet insulin aspart U-100 100 unit/mL 1 sliding scale dose subcut TID 07/24/22 11/19/22 Rx (3 mL) subc
[2022-11-20 12:44] LABS: Glucose Point of Care 106 mg/dl (65-105)
--- NOTE | 2022-11-20 13:00 | PM.IMPN ---
Progress Note: A&P Assessment and Plan (1) Acute on chronic pancreatitis: Code(s): K85.90 - Acute pancreatitis without necrosis or infection, unspecified; K86.1 - Other chronic pancreatitis Status: Acute Assessment and Plan: The patient presented to the emergency department for evaluation of upper abdominal pain for the last 4 days Her history is consistent with acute on chronic pancreatitis CT of the abdomen and pelvis did not show any acute findings. Lipase within normal limits Continue supportive care with bowel rest and IV fluid rehydration. Analgesics and antiemetics are available as needed. (2) Hypertriglyceridemia: Code(s): E78.1 - Pure hyperglyceridemia Status: Chronic Assessment and Plan: Triglyceride level > 2625, may need insulin drip and/or plasmapheresis given her history. Consult to Cardiology who recommended resuming her home medications if able to tolerate orally then consulting Nephrology in regards to plasmapheresis. Her medications will be reviewed and resumed as appropriate. (3) Dehydration: Code(s): E86.0 - Dehydration Status: Acute Assessment and Plan: continue IV fluid hydration. (4) Insulin dependent diabetes mellitus: Status: Acute Assessment and Plan: Insulin Lispro sliding scale, Accu-checks qAc and HS and Hold oral hypoglycemics Initiate hypoglycemic precautions Obtain a HgbA1c Subjective Date/time seen: 11/20/22 13:00 Interval history: Patient continues to have abdominal pain. She has intermittent nausea without vomiting. Abdominal pain is in left upper quadrant radiating to the back. Patient has chronic history of elevated triglycerides and has been seen at the [facility] for this. She is also sees a director payment and aerodynamics teacher at [facility]. States that she has had several plasmapheresis and has [address]. Review of Systems Review of Systems: All systems reviewed & are unremarkable except as noted in HPI and below Exam Narrative: GENERAL: Comfortable, no acute distress HENMT: moist mucous membranes EYES: EOM intact b/l NECK: no lymphadenopathy RESPIRATORY: clear to auscultation CARDIO: RRR GI: soft, mild epigastric tenderness, bowel sounds present SKIN: no rashes EXTREMITIES: no edema, redness or tenderness Objective Data Vital Signs Vital Signs: Vital Signs - 24 hr 11/19/22 15:30 11/19/22 19:21 11/19/22 20:07 Temperature 97.6 F Pulse Rate 118 H Respiratory Rate Blood Pressure 136/78 Pulse Oximetry 98 96 98 Oxygen Delivery Room Air 11/19/22 20:26 11/19/22 20:37 11/19/22 20:48 Temperature Pulse Rate 72 Respiratory Rate 18 Blood Pressure 128/74 Pulse Oximetry 92 94 98 Oxygen Delivery 11/19/22 21:08 11/19/22 21:03 11/19/22 23:56 Temperature 96.8 F L 97.6 F Pulse Rate 73 73 Respiratory Rate 18 18 Blood Pressure 137/86 124/78 Pulse Oximetry 100 93 Oxygen Delivery Room Air 11/20/22 04:00 11/20/22 04:26 11/20/22 09:12 Temperature 96.7 F L 96.7 F L 98.6 F Pulse Rate 71 71 74 Respiratory Rate 20 20 16 Blood Pressure 113/73 113/73 122/70 Pulse Oximetry 94 94 94 Oxygen Delivery Intake/Output Intake/Output: Intake & Output 11/17/22 11/18/22 11/19/22 11/20/22 23:59 23:59 23:59 23:59 Intake Total 1050 1999 Output Total 300 Balance 750 1999 Meds/Results Medications: Active Medications Generic Name Dose Route Start Last Admin Trade Name Freq PRN Reason Stop Dose Admin Dextrose 12.5 gm 11/20/22 00:51 Dextrose 50% 25 Gm/50 Ml Syringe IV PUSH PRN PRN Hypoglycemia Protocol Diphenhydramine HCl 25 mg 11/19/22 21:34 11/20/22 07:36 Diphenhydramine Hcl Inj 50 Mg/Ml Vial IV PUSH 25 mg Q4H PRN Administration Itching Glucagon 1 mg 11/20/22 00:51 Glucagon For Inj 1 Mg Vial IM PRN PRN Hypoglycemia Protocol Glucose 15 gm 11/20/22 00:51 Glucose Oral Gel
--- NOTE | 2022-11-20 16:58 | PM.CNNEP ---
Assessment and Plan Assessment and plan (1) Hypertriglyceridemia: Code(s): E78.1 - Pure hyperglyceridemia Status: Chronic Assessment and Plan: elevated triglyceride level noted appears symptomatic with regard to this issue will consider plasmapheresis depending on trend of triglyceride level - will recheck in AM goal of plasmapheresis therapy if initiated would be to get triglyceride level less than 600 on last hospitalization here at [place], triglyceride level improved WITHOUT need for plasmapheresis... continue ongoing medical therapy I will continue follow the patient with you while she remains hospitalized and make further recommendations as needed. Thank you for allowing me to participate in care this patient. History of Present Illness Reason for Consult Consult date: 11/20/22 Reason for consult: Other (Plasmapheresis) Chief Complaint Chief complaint: Acute Abdominal Pain, Chronic Pancreatitis History of Present Illness Narrative: The patient is a 46-year-old female with an extensive past medical history as outlined below who presented to [facility] Emergency room with complaints of abdominal pain. She developed constant aching abdominal pain located in the upper part of her abdomen for last four days. She has been trying to maintain bowel rest since that time but unfortunately, her symptoms have not really improved and continued to deteriorate. She reports the abdominal pain is an intermittent sharp and stabbing like sensation localized the left upper quadrant with occasional radiation to the back. Associated symptoms include nausea and vomiting and she has been unable to eat or drink anything due to the symptoms. She feels these symptoms are consistent with her previous episodes of pancreatitis and this usually tends to occur when her triglyceride levels are dramatically increased which is a chronic issue for the patient. In the past, due to her severe hypertriglyceridemia, she has required plasmapheresis and or insulin drips to treat this phenomenon. The etiology of her hypertriglyceridemia remains unclear and she has had a fairly extensive workup and evaluation done for this issue and multiple hospital centers without any significant resolution /improvement in this problem. She presented to [facility] Emergency room with these constellation of symptoms. Workup and evaluation in the emergency room demonstrated the patient to be hemodynamically stable but in moderate distress secondary to her abdominal pain. Routine blood test demonstrated normal renal function and CBC with a normal lipase as well. Her triglyceride level was greater than [address] scan of her abdomen pelvis did not demonstrate any acute intra-abdominal pathology. She was started on IV fluids as well as her home medication regimen with regard to her hypertriglyceridemia and subsequently admitted to the hospital for further evaluation and therapy. Since her admission, her abdominal pain is still present and is difficult to save his really any better than what it was on presentation. She was not started on an insulin drip although I suspect this is due to the fact that she would need to be in the ICU for administration this medication regimen. Renal consultation was requested due to possible initiation of plasmapheresis for treatment of her hypertriglyceridemia. As already mentioned, the patient has received plasmapheresis in the past for her high triglyceride levels both here at [facility] and at [facility]. She has a power port line in place that has been used for this purpose. She does report that this catheter has not been used for awhile as her previous hospitalization for this issue responded to the previously mentioned insulin drip. Currently, at the time my visit, she is in mild distress secondary to abdominal pain. Review of Systems Review of Systems: As per HPI. [facility] Past
[2022-11-20 17:17] LABS: Glucose Point of Care 96 mg/dl (65-105)
[2022-11-21] VITALS (13 sets, daily range): BP systolic 110–144; BP diastolic 64–86; PULSE 70–89; RESP 16–20; TEMP 36.2–36.8; O2SAT 96–99
[2022-11-21] MEDS: SODIUM CHLORIDE 0.9% IV 1,000 ML 150 ML IV CONT (00:25)
[2022-11-21] MEDS: HYDROmorphone HCL INJ (*CRX) 1 MG/ML SYR IV PUSH ×7 (00:25→22:29)
[2022-11-21 04:41] LABS: Glucose Point of Care 88 mg/dl (65-105)
[2022-11-21] MEDS: diphenhydrAMINE HCl INJ 50 MG/ML VIAL 25 MG IV PUSH ×4 (04:53→23:30)
[2022-11-21 05:24] LABS: Basophils Percent Auto 0.6 % (0.2-1.2); Eosinophils Percent Auto 0.6 % (0-4.4); Hematocrit 36.2 % (37.0-47.0); Hemoglobin 11.9 g/dL (12.0-15.0); Immature Granulocyte Absolute 0.03 K/mm3 (0.00-0.031); Immature Granulocyte Percent A 0.5 % (0-0.5); Lymphocytes Absolute Auto 2.12 K/mm3 (0.9-3.2); Lymphocytes Percent Auto 32.9 % (18.3-44.2); Mean Corpuscular HGB Conc 32.9 g/dl (32-36); Mean Corpuscular Hemoglobin 29.9 pg (26-34); Monocytes Absolute Auto 0.5 K/mm3 (0.1-0.6); Monocytes Percent Auto 7.1 % (2.6-8.5); Neutrophils Absolute Auto 3.8 K/mm3 (1.3-6.7); Neutrophils Percent Auto 58.3 % (45.5-73.1); Platelet Count Result 184 k/mm3 (150-375); Red Blood Count 3.98 M/mm3 (4.2-5.4); Red Cell Distribution Width 16.4 % (11.5-14.5); White Blood Count 6.5 K/mm3 (4.5-10.0)
[2022-11-21] MEDS: FUROSEMIDE INJ 40 MG/4 ML VIAL IV PUSH ×2 (05:43→18:36)
[2022-11-21 06:02] LABS: Alanine Aminotransferase 15 U/L (6-35); Albumin Level 3.6 g/dL (3.5-5.1); Alkaline Phosphatase 53 U/L (38-126); Anion Gap 4 mmol/L (8-16); Aspartate Amino Transferase 24 U/L (14-36); Bilirubin,Total 0.4 mg/dL (0.2-1.3); Blood Urea Nitrogen 5 mg/dL (7-17); Calcium 7.2 mg/dL (8.4-10.2); Carbon Dioxide 25 mmol/L (22-30); Chloride 105 mmol/L (98-107); Estimated CRCL calculation 131 ml/min; Estimated Glomerular Filt Rate > 60; Glucose 86 mg/dL (65-110); Potassium 3.3 mmol/L (3.4-5.0); Sodium 134 mmol/L (137-145)
[2022-11-21 06:21] LABS: Triglycerides 2406 mg/dL (<150)
[2022-11-21 06:25] LABS: Glucose Point of Care 84 mg/dl (65-105)
[2022-11-21] MEDS: ONDANSETRON INJ 4 MG/2 ML VIAL IV PUSH ×2 (08:32→22:31)
[2022-11-21] MEDS: PANTOPRAZOLE SODIUM IV 40 MG VIAL IV PUSH (08:32)
[2022-11-21 08:46] LABS: Glucose Point of Care 97 mg/dl (65-105)
--- NOTE | 2022-11-21 11:30 | PM.IMPN ---
Progress Note: A&P Assessment and Plan (1) Acute on chronic pancreatitis: Code(s): K85.90 - Acute pancreatitis without necrosis or infection, unspecified; K86.1 - Other chronic pancreatitis Status: Acute Assessment and Plan: Presented to the emergency department for evaluation of upper abdominal pain for the last 4 days History is consistent with acute on chronic pancreatitis CT of the abdomen and pelvis did not show any acute findings. Lipase within normal limits Continue supportive care with bowel rest and IV fluid rehydration. Analgesics and antiemetics are available as needed. (2) Dehydration: Code(s): E86.0 - Dehydration Status: Acute Assessment and Plan: IV fluids Continue to trend labs turn fluids down to 75ml/hr (3) Hypertriglyceridemia: Code(s): E78.1 - Pure hyperglyceridemia Status: Chronic Assessment and Plan: Triglyceride level 2406, may need insulin drip and/or plasmapheresis given her history. Consult to Cardiology who recommended resuming her home medications if able to tolerate orally then consulting Nephrology in regards to plasmapheresis. Her medications will be reviewed and resumed as appropriate. (4) Insulin dependent diabetes mellitus: Status: Acute Assessment and Plan: Insulin Lispro sliding scale Accu-checks qAc and HS Hold oral hypoglycemics Initiate hypoglycemic precautions HgbA1c 10.0 24 hour insulin roll for proper amount of insulin Plan K is 3.3 replace as indicated 40mcg IV Time Spent With Patient Time: 48 minutes Time with patient: Greater than 35 minutes Subjective Date/time seen: 11/21/22 1130 Interval history: Patient is a 46 year old female with past medical history of diabetes, hypothyroidism, GERD, and HLD who presented to the ed with complaints of abdominal pain. Currently she is still having some pretty significant abdominal pain. She denies any chest pain, shortness of breath, nausea, vomiting, diarrhea, or constipation. She did state that her pain is diffuse throughout the abdomen. She also stated that she is having some abnormal swelling in the bilateral eyes. Fluids were turned off, and lasix was given. Currently she does have a bit of swelling over the shins and over and under the eyes. Fluids will be turned down to 75ml/hr. She is also going to be going for plasmapheresis today. Review of Systems Review of Systems: All systems reviewed & are unremarkable except as noted in HPI and below Exam Narrative: General: well-nourished, ill-appearing 46-year-old female, laying in bed, uncomfortable, NARD Neuro: awake, alert and oriented x4, speech clear, no focal neuro deficits noted HEENMT: normocephalic, atraumatic, EOMI, sclerae anicteric, moist oral mucosa Respiratory: Clear to auscultation bilaterally without crackles, rhonchi or wheezes, nonlabored breathing Cardio: regular rate, regular rhythm with S1-S2 Abdomen: nondistended, hypoactive bowel sounds, soft, tender to palpation Extremities: no edema, erythema, or tenderness to palpation, DP pulses 2+ bilaterally Skin: no rashes or lesions, warm and dry Psych: appropriate mood and affect, judgment and insight intact Objective Data Vital Signs Vital Signs: Vital Signs - 24 hr 11/20/22 19:19 11/20/22 19:25 11/20/22 20:00 Temperature 97.3 F L 97.3 F L Pulse Rate 77 77 77 Respiratory Rate 20 20 20 Blood Pressure 116/63 116/63 Pulse Oximetry 94 94 94 Oxygen Delivery Room Air 11/21/22 00:00 11/21/22 04:00 11/21/22 04:37 Temperature 97.4 F L 97.6 F 97.6 F Pulse Rate 77 76 70 Respiratory Rate 18 18 18 Blood Pressure 110/69 142/86 H 142/86 H Pulse Oximetry 96 98 98 Oxygen Delivery 11/21/22 10:26 11/21/22 13:49 Temperature 98 F 97.1 F L Pulse Rate 79 89 Respiratory Rate 16 16 Blood Pressure 136/86 144/77 H Pulse Oximetry 96 99 Oxygen Delivery Intake
[2022-11-21] MEDS: LIDOCAINE HCL 4% SOLN 50 ML BTL 1 APPLIC TOPICAL (14:45)
[2022-11-21] MEDS: POTASSIUM CHLORIDE INJ 40 MEQ in SODIUM CHLORIDE 0.9% IV 500 ML 130 MEQ IVPB (14:59)
[2022-11-21] MEDS: CALCIUM GLUC 2,000 MG/NS 100ML 2,000 MG/100 ML BAG 100 MG IVPB (15:33)
[2022-11-21] MEDS: SODIUM CHLORIDE 0.9% IV 1,000 ML 999 ML IV CONT (15:33)
--- NOTE | 2022-11-21 16:00 | PM.PNNEP ---
Progress Note: A&P Assessment and Plan (1) Hypertriglyceridemia: Code(s): E78.1 - Pure hyperglyceridemia Status: Chronic Assessment and Plan: elevated triglyceride level noted appears symptomatic with regard to this issue plasmapheresis today goal of plasmapheresis therapy is to get triglyceride level less than 600 continue ongoing medical therapy (2) Acute on chronic pancreatitis: Code(s): K85.90 - Acute pancreatitis without necrosis or infection, unspecified; K86.1 - Other chronic pancreatitis Status: Acute Assessment and Plan: history and exam appears consistent with this CT imaging is negative lipase level okay continue supportive therapy (bowel rest, IVFs, analgesics, and antiemetics (3) Insulin dependent diabetes mellitus: Status: Chronic Assessment and Plan: poor control at baseline (based on HgbA1c) follow accu-cheks glycemic control per hospitalists Will continue to follow Subjective Date/time seen: 11/21/22 16:00 Interval history: Follow-up for hypertriglyceridemia. Triglyceride level still quite elevated by AM labs so currently receiving plasmapheresis treatment at the time of my visit (seen on plasmapheresis at 3:50PM); issues/concerns for fluid overload due to LE edema and periorbital swelling so IVF rate decreased and given IV lasix; abdominal pain still present but a bit better. Exam Narrative: General: WD/WN female in NAD Heart: normal S1 and S2; no rub Lungs: clear to auscultation Abdomen: soft, +TTP in epigastric area, positive bowel sounds Extremities: no cyanosis or clubbing; trace edema Skin: warm and dry Objective Data Vital Signs Vital Signs: Vital Signs Temp Pulse Resp BP Pulse Ox O2 Del Method 11/21/22 15:50 70 18 123/75 11/21/22 15:33 98.2 F 74 20 130/76 11/21/22 13:49 97.1 F L 89 16 144/77 H 99 11/21/22 10:26 98 F 79 16 136/86 96 11/21/22 04:37 97.6 F 70 18 142/86 H 98 11/21/22 04:00 97.6 F 76 18 142/86 H 98 11/21/22 00:00 97.4 F L 77 18 110/69 96 11/20/22 20:00 77 20 94 Room Air 11/20/22 19:25 97.3 F L 77 20 116/63 94 07/25/23 19:19 97.3 F L 77 20 116/63 94 Intake/Output Intake/Output: Intake & Output 11/18/22 11/19/22 11/20/22 11/21/22 23:59 23:59 23:59 23:59 Intake Total 1050 3000 1000 Output Total 300 600 Balance 750 2400 1000 Meds/Results Medications: Active Medications Generic Name Dose Route Start Last Admin Trade Name Freq PRN Reason Stop Dose Admin Dextrose 12.5 gm 11/20/22 00:51 Dextrose 50% 25 Gm/50 Ml Syringe IV PUSH PRN PRN Hypoglycemia Protocol Diphenhydramine HCl 25 mg 11/19/22 21:34 11/21/22 12:13 Diphenhydramine Hcl Inj 50 Mg/Ml Vial IV PUSH 25 mg Q4H PRN Administration Itching Glucagon 1 mg 11/20/22 00:51 Glucagon For Inj 1 Mg Vial IM PRN PRN Hypoglycemia Protocol Glucose 15 gm 11/20/22 00:51 Glucose Oral Gel 15 Gm Of Glucse In 37.5 Gm Tube PO PRN PRN Hypoglycemia Protocol Hydromorphone HCl 1 mg 11/19/22 20:19 11/21/22 14:58 Hydromorphone Hcl Inj (*Crx) 1 Mg/Ml Syr IV PUSH 1 mg Q3H PRN Administration Pain Rated 7-10 Sodium Chloride 1,000 mls @ 75 mls/hr 11/19/22 19:10 11/21/22 06:00 Normal Saline Iv IV CONT 0 mls/hr .[id number] RAPHAEL Infusion Dextrose 1,000 mls @ 100 mls/hr 11/20/22 00:51 Dextrose 5% 1,000 Ml IVPB PRN PRN Hypoglycemia Protocol Potassium Chloride 40 meq/ 520 mls @ 130 mls/hr 11/21/22 14:18 11/21/22 14:59 Sodium Chloride IVPB 11/21/22 18:17 130 mls/hr ONCE ONE Administration Insulin Aspart 3 - 6 units 11/20/22 06:00 11/21/22 14:55 Insulin Aspart (*Bkc) 100 Units/Ml SUB-Q Not Given Q6HR [facility] Protocol Ondansetron HCl 4 mg 11/19/22 20:19 11/21/22 08:32 Ondansetron Inj 4 Mg/2 Ml Vial IV PUSH 4 mg Q6H PRN
[2022-11-21 16:58] LABS: Glucose Point of Care 106 mg/dl (65-105)
[2022-11-21] MEDS: HEPARIN SODIUM, PORCINE 10,000 UNITS/10 ML VIAL 10000 UNITS IV PUSH (17:20)
--- NOTE | 2022-11-21 17:32 | PC.NURSE ---
Lasix administered late due to plasmapheresis administration.
[2022-11-21] MEDS: SODIUM CHLORIDE 0.9% IV 1,000 ML 75 ML IV CONT (20:51)
[2022-11-21 23:41] LABS: Glucose Point of Care 104 mg/dl (65-105)
[2022-11-22 01:00] VITALS: BP 119/82; PULSE 73; RESP 14; TEMP 36.8; O2SAT 95
[2022-11-22] MEDS: HYDROmorphone HCL INJ (*CRX) 1 MG/ML SYR IV PUSH ×7 (01:28→21:03)
[2022-11-22] MEDS: diphenhydrAMINE HCl INJ 50 MG/ML VIAL 25 MG IV PUSH ×3 (04:29→18:05)
[2022-11-22 05:58] LABS: Basophils Percent Auto 0.5 % (0.2-1.2); Eosinophils Absolute Auto 0.1 K/mm3 (0-0.3); Eosinophils Percent Auto 1.1 % (0-4.4); Hematocrit 39.2 % (37.0-47.0); Hemoglobin 12.8 g/dL (12.0-15.0); Immature Granulocyte Absolute 0.03 K/mm3 (0.00-0.031); Immature Granulocyte Percent A 0.5 % (0-0.5); Lymphocytes Absolute Auto 1.91 K/mm3 (0.9-3.2); Lymphocytes Percent Auto 30.9 % (18.3-44.2); Mean Corpuscular HGB Conc 32.7 g/dl (32-36); Mean Corpuscular Hemoglobin 29.2 pg (26-34); Mean Corpuscular Volume 89.5 fl (80-100); Mean Platelet Volume 9.4 fl (7.4-10.4); Monocytes Absolute Auto 0.4 K/mm3 (0.1-0.6); Monocytes Percent Auto 6.1 % (2.6-8.5); Neutrophils Absolute Auto 3.8 K/mm3 (1.3-6.7); Neutrophils Percent Auto 60.9 % (45.5-73.1); Platelet Count Result 171 k/mm3 (150-375); Red Blood Count 4.38 M/mm3 (4.2-5.4); White Blood Count 6.2 K/mm3 (4.5-10.0)
[2022-11-22 06:00] VITALS: BP 131/74; PULSE 53; RESP 18; TEMP 36.7; O2SAT 95
[2022-11-22] MEDS: ONDANSETRON INJ 4 MG/2 ML VIAL IV PUSH ×2 (06:16→20:30)
[2022-11-22 06:25] LABS: Alanine Aminotransferase 10 U/L (6-35); Alkaline Phosphatase 26 U/L (38-126); Anion Gap 5 mmol/L (8-16); Aspartate Amino Transferase 20 U/L (14-36); Bilirubin,Total 0.5 mg/dL (0.2-1.3); Blood Urea Nitrogen 5 mg/dL (7-17); Calcium 7.4 mg/dL (8.4-10.2); Carbon Dioxide 26 mmol/L (22-30); Chloride 105 mmol/L (98-107); Estimated CRCL calculation 131 ml/min; Estimated Glomerular Filt Rate > 60; Glucose 87 mg/dL (65-110); Magnesium 1.4 mg/dL (1.6-2.3); Potassium 3.2 mmol/L (3.4-5.0); Sodium 136 mmol/L (137-145)
[2022-11-22 06:27] LABS: Glucose Point of Care 96 mg/dl (65-105)
[2022-11-22 07:14] LABS: Triglycerides 708 mg/dL (<150)
[2022-11-22] MEDS: PANTOPRAZOLE SODIUM IV 40 MG VIAL IV PUSH (08:58)
[2022-11-22] MEDS: POTASSIUM CHLORIDE INJ 40 MEQ in SODIUM CHLORIDE 0.9% IV 500 ML 130 MEQ IVPB (10:21)
[2022-11-22] MEDS: MAGNESIUM SULF 4 GM/WATER100ML 4 GM/100 ML BAG IVPB (11:55)
[2022-11-22 12:10] LABS: Glucose Point of Care 79 mg/dl (65-105)
--- NOTE | 2022-11-22 13:45 | PM.IMPN ---
Progress Note: A&P Assessment and Plan (1) Acute on chronic pancreatitis: Code(s): K85.90 - Acute pancreatitis without necrosis or infection, unspecified; K86.1 - Other chronic pancreatitis Status: Acute Assessment and Plan: Presented to the emergency department for evaluation of upper abdominal pain for the last 4 days History is consistent with acute on chronic pancreatitis CT of the abdomen and pelvis did not show any acute findings. Lipase within normal limits Continue supportive care with bowel rest and IV fluid rehydration. Analgesics and antiemetics are available as needed. (2) Dehydration: Code(s): E86.0 - Dehydration Status: Acute Assessment and Plan: IV fluids Continue to trend labs turn fluids down to 75ml/hr (3) Hypertriglyceridemia: Code(s): E78.1 - Pure hyperglyceridemia Status: Chronic Assessment and Plan: Triglyceride level 2406 Labs indicate significant decline to 708 plasmapheresis initiated on 11/21/22 Consult to Cardiology who recommended resuming her home medications if able to tolerate orally then consulting Nephrology in regards to plasmapheresis. Her medications will be reviewed and resumed as appropriate. (4) Insulin dependent diabetes mellitus: Status: Chronic Assessment and Plan: Current glucose 96 Insulin Lispro sliding scale Accu-checks qAc and HS Hold oral hypoglycemics Initiate hypoglycemic precautions HgbA1c 10.0 24 hour insulin roll for proper amount of insulin Plan K is 3.2, mag 1.4 replace as indicated 40mcg IV of potassium, and 4gm of magnesium Time Spent With Patient Time: 48 minutes Time with patient: Greater than 35 minutes Subjective Date/time seen: 11/22/22 1345 Interval history: Patient is a 46 year old female with past medical history of diabetes, hypothyroidism, GERD, and HLD who presented to the ed with complaints of abdominal pain. patient is still having a lot of pain. She stated that she is feeling slightly better however the pain is still lot her abdomen. She is having a lot of nausea and stated that she is urinating well. She also stated that the pain has since last about 2-1/2 hours. Currently she denies any chest pain, shortness a breath, fevers, sweats, chills. Review of Systems Review of Systems: All systems reviewed & are unremarkable except as noted in HPI and below Exam Narrative: General: well-nourished, ill-appearing 46-year-old female, laying in bed, uncomfortable, NARD Neuro: awake, alert and oriented x4, speech clear, no focal neuro deficits noted HEENMT: normocephalic, atraumatic, EOMI, sclerae anicteric, moist oral mucosa Respiratory: Clear to auscultation bilaterally without crackles, rhonchi or wheezes, nonlabored breathing Cardio: regular rate, regular rhythm with S1-S2 Abdomen: nondistended, hypoactive bowel sounds, soft, tender to palpation Extremities: no edema, erythema, or tenderness to palpation, DP pulses 2+ bilaterally Skin: no rashes or lesions, warm and dry Psych: appropriate mood and affect, judgment and insight intact Objective Data Vital Signs Vital Signs: Vital Signs - 24 hr 11/21/22 13:49 11/21/22 15:33 11/21/22 15:50 Temperature 97.1 F L 98.2 F Pulse Rate 89 74 70 Respiratory Rate 16 20 18 Blood Pressure 144/77 H 130/76 123/75 Pulse Oximetry 99 Oxygen Delivery 11/21/22 16:50 11/21/22 16:51 11/21/22 17:20 Temperature 98 F Pulse Rate 77 71 77 Respiratory Rate 20 18 18 Blood Pressure 124/80 131/71 124/82 Pulse Oximetry Oxygen Delivery 11/21/22 19:36 11/21/22 21:04 11/22/22 01:00 Temperature 97.7 F 98.3 F Pulse Rate 77 76 73 Respiratory Rate 18 16 14 Blood Pressure 111/64 119/82 Pulse Oximetry 99 97 95 Oxygen Delivery Room Air 11/22/22 06:00 11/22/22 08:00 Temperature 98.0 F Pulse Rate 53 L Respiratory Rate 18 Blood Pressure 131
--- NOTE | 2022-11-22 14:32 | PM.PNNEP ---
Progress Note: A&P Assessment and Plan (1) Hypertriglyceridemia: Code(s): E78.1 - Pure hyperglyceridemia Status: Chronic Assessment and Plan: improvement noted s/p plasmapheresis elevated triglyceride level noted on admission was symptomatic with regard to this issue plasmapheresis yesterday goal of plasmapheresis therapy is to get triglyceride level less than 600 continue ongoing medical therapy will consider plasmapheresis again tomorrow depending on repeat TG level (2) Acute on chronic pancreatitis: Code(s): K85.90 - Acute pancreatitis without necrosis or infection, unspecified; K86.1 - Other chronic pancreatitis Status: Acute Assessment and Plan: history and exam appears consistent with this CT imaging is negative lipase level okay continue supportive therapy (3) Insulin dependent diabetes mellitus: Status: Chronic Assessment and Plan: poor control at baseline (based on HgbA1c) follow accu-cheks glycemic control per hospitalists Will continue to follow Subjective Date/time seen: 11/22/22 14:32 Interval history: Follow-up for hypertriglyceridemia. Tolerated plasmapheresis treatment yesterday afternoon with significant improvement in triglyceride level; abdominal pain seems to be doing better and would like to try some clear liquids (currently NPO); no apparent distress noted at the time of my visit. Exam Narrative: General: WD/WN female in NAD Heart: normal S1 and S2; no rub Lungs: clear to auscultation Abdomen: soft, nontender, positive bowel sounds Extremities: no cyanosis or clubbing; trace edema Skin: warm and intact Objective Data Vital Signs Vital Signs: Vital Signs Temp Pulse Resp BP Pulse Ox O2 Del Method 11/22/22 14:08 97.4 F L 75 16 106/60 94 11/22/22 08:00 Room Air 11/22/22 06:00 98.0 F 53 L 18 131/74 95 11/22/22 01:00 98.3 F 73 14 119/82 95 11/21/22 21:04 97.7 F 76 16 111/64 97 11/21/22 19:36 77 18 99 Room Air 11/21/22 17:20 98 F 77 18 124/82 Intake/Output Intake/Output: Intake & Output 11/19/22 11/20/22 11/21/22 11/22/22 23:59 23:59 23:59 23:59 Intake Total 1050 3000 2520 1000 Output Total 431 283 5470 500 Balance 750 2400 -1580 500 Meds/Results Medications: Active Medications Generic Name Dose Route Start Last Admin Trade Name Freq PRN Reason Stop Dose Admin Dextrose 12.5 gm 11/20/22 00:51 Dextrose 50% 25 Gm/50 Ml Syringe IV PUSH PRN PRN Hypoglycemia Protocol Diphenhydramine HCl 25 mg 11/19/22 21:34 11/22/22 09:45 Diphenhydramine Hcl Inj 50 Mg/Ml Vial IV PUSH 25 mg Q4H PRN Administration Itching Glucagon 1 mg 11/20/22 00:51 Glucagon For Inj 1 Mg Vial IM PRN PRN Hypoglycemia Protocol Glucose 15 gm 11/20/22 00:51 Glucose Oral Gel 15 Gm Of Glucse In 37.5 Gm Tube PO PRN PRN Hypoglycemia Protocol Hydromorphone HCl 1 mg 11/19/22 20:19 11/22/22 14:09 Hydromorphone Hcl Inj (*Crx) 1 Mg/Ml Syr IV PUSH 1 mg Q3H PRN Administration Pain Rated 7-10 Sodium Chloride 1,000 mls @ 75 mls/hr 11/19/22 19:10 11/22/22 16:32 Normal Saline Iv IV CONT 75 mls/hr .[id number] RAPHAEL Administration Dextrose 1,000 mls @ 100 mls/hr 11/20/22 00:51 Dextrose 5% 1,000 Ml IVPB PRN PRN Hypoglycemia Protocol Insulin Aspart 3 - 6 units 11/20/22 06:00 11/22/22 12:09 Insulin Aspart (*Bkc) 100 Units/Ml SUB-Q Not Given Q6HR RAPHAEL Protocol Ondansetron HCl 4 mg 11/19/22 20:19 11/22/22 06:16 Ondansetron Inj 4 Mg/2 Ml Vial IV PUSH 4 mg Q6H PRN Administration Nausea And Vomiting Pantoprazole Sodium 40 mg 11/20/22 09:00 11/22/22 08:58 Pantoprazole Sodium Iv 40 Mg Vial IV PUSH 40 mg QAM RAPHAEL Administration Radiology Results: ITS Impressions Abdomen/Pelvis CT 11/19/22 18:48 Impression: No acute
[2022-11-22 15:08] VITALS: BP 106/60; PULSE 75; RESP 16; TEMP 36.3; O2SAT 94
[2022-11-22] MEDS: SODIUM CHLORIDE 0.9% IV 1,000 ML 75 ML IV CONT (16:32)
[2022-11-22 18:06] LABS: Glucose Point of Care 74 mg/dl (65-105)
[2022-11-22 20:00] VITALS: BP 106/61; PULSE 74; PULSE 75; RESP 16; RESP 18; TEMP 36.8; O2SAT 94; O2SAT 96
[2022-11-22 21:18] LABS: Glucose Point of Care 129 mg/dl (65-105)
[2022-11-23] VITALS: BP 108/64; PULSE 82; RESP 16; TEMP 36.8; O2SAT 96
[2022-11-23] MEDS: HYDROmorphone HCL INJ (*CRX) 1 MG/ML SYR IV PUSH ×7 (01:36→22:09)
[2022-11-23 04:00] VITALS: BP 95/53; PULSE 72; RESP 16; TEMP 36.8; O2SAT 95
[2022-11-23] MEDS: SODIUM CHLORIDE 0.9% IV 1,000 ML 75 ML IV CONT ×2 (04:32→17:39)
[2022-11-23 06:28] LABS: Basophils Percent Auto 0.6 % (0.2-1.2); Eosinophils Absolute Auto 0.1 K/mm3 (0-0.3); Eosinophils Percent Auto 1.3 % (0-4.4); Hemoglobin 12.1 g/dL (12.0-15.0); Immature Granulocyte Absolute 0.03 K/mm3 (0.00-0.031); Immature Granulocyte Percent A 0.6 % (0-0.5); Lymphocytes Absolute Auto 1.64 K/mm3 (0.9-3.2); Lymphocytes Percent Auto 30.3 % (18.3-44.2); Mean Corpuscular HGB Conc 31.8 g/dl (32-36); Mean Corpuscular Hemoglobin 28.9 pg (26-34); Mean Corpuscular Volume 90.7 fl (80-100); Mean Platelet Volume 9.6 fl (7.4-10.4); Monocytes Absolute Auto 0.4 K/mm3 (0.1-0.6); Monocytes Percent Auto 6.8 % (2.6-8.5); Neutrophils Absolute Auto 3.3 K/mm3 (1.3-6.7); Neutrophils Percent Auto 60.4 % (45.5-73.1); Platelet Count Result 169 k/mm3 (150-375); Red Blood Count 4.19 M/mm3 (4.2-5.4); Red Cell Distribution Width 16.2 % (11.5-14.5); White Blood Count 5.4 K/mm3 (4.5-10.0)
[2022-11-23 06:53] LABS: Alanine Aminotransferase 11 U/L (6-35); Albumin Level 3.7 g/dL (3.5-5.1); Alkaline Phosphatase 31 U/L (38-126); Anion Gap 6 mmol/L (8-16); Aspartate Amino Transferase 23 U/L (14-36); Bilirubin,Total 0.5 mg/dL (0.2-1.3); Blood Urea Nitrogen 5 mg/dL (7-17); Calcium 7.6 mg/dL (8.4-10.2); Carbon Dioxide 24 mmol/L (22-30); Chloride 106 mmol/L (98-107); Estimated CRCL calculation 128 ml/min; Estimated Glomerular Filt Rate > 60; Glucose 90 mg/dL (65-110); Potassium 3.4 mmol/L (3.4-5.0); Sodium 136 mmol/L (137-145)
[2022-11-23 07:40] LABS: Triglycerides 706 mg/dL (<150)
[2022-11-23 08:00] VITALS: BP 112/70; PULSE 68; RESP 18; TEMP 36.7; O2SAT 97
[2022-11-23 08:31] LABS: Glucose Point of Care 100 mg/dl (65-105)
[2022-11-23] MEDS: PANTOPRAZOLE SODIUM IV 40 MG VIAL IV PUSH (08:34)
[2022-11-23] MEDS: ONDANSETRON INJ 4 MG/2 ML VIAL IV PUSH ×3 (08:37→22:09)
--- NOTE | 2022-11-23 09:15 | PM.IMPN ---
Progress Note: A&P Assessment and Plan (1) Acute on chronic pancreatitis: Code(s): K85.90 - Acute pancreatitis without necrosis or infection, unspecified; K86.1 - Other chronic pancreatitis Status: Acute Assessment and Plan: Presented to the emergency department for evaluation of upper abdominal pain for the last 4 days History is consistent with acute on chronic pancreatitis CT of the abdomen and pelvis did not show any acute findings. Lipase within normal limits Continue supportive care with bowel rest and IV fluid rehydration. Analgesics and antiemetics are available as needed. (2) Dehydration: Code(s): E86.0 - Dehydration Status: Acute Assessment and Plan: IV fluids Continue to trend labs turn fluids down to 75ml/hr (3) Hypertriglyceridemia: Code(s): E78.1 - Pure hyperglyceridemia Status: Chronic Assessment and Plan: Triglyceride level 2406 Labs indicate significant decline to 708, currently 706 plasmapheresis initiated on 11/21/22, most likely repeat treatment today Goal is for triglycerides down below 600 Consult to Cardiology who recommended resuming her home medications if able to tolerate orally then consulting Nephrology in regards to plasmapheresis. Her medications will be reviewed and resumed as appropriate. 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 Currently patient is lying in bed. She did state that she feels a little bit better today she also stated that she did get a pain pill and her pain currently is a 6-7/10. She denies any current chest pain, shortness a breath, nausea, vomiting, diarrhea constipation. She is going to get plasmapheresis today triglycerides around 706. Review of Systems Review of Systems: All systems reviewed & are unremarkable except as noted in HPI and below Exam Narrative: General: well-nourished, ill-appearing 46-year-old female, laying in bed, uncomfortable, NARD Neuro: awake, alert and oriented x4, speech clear, no focal neuro deficits noted HEENMT: normocephalic, atraumatic, EOMI, sclerae anicteric, moist oral mucosa Respiratory: Clear to auscultation bilaterally without crackles, rhonchi or wheezes, nonlabored breathing Cardio: regular rate, regular rhythm with S1-S2 Abdomen: nondistended, hypoactive bowel sounds, soft, tender to palpation Extremities: no edema, erythema, or tenderness to palpation, DP pulses 2+ bilaterally Skin: no rashes or lesions, warm and dry Psych: appropriate mood and affect, judgment and insight intact Objective Data Vital Signs Vital Signs: Vital Signs - 24 hr 11/22/22 15:08 11/22/22 20:00 11/22/22 20:00 Temperature 97.4 F L 98.2 F Pulse Rate 75 75 74 Respiratory Rate 16 16 18 Blood Pressure 106/60 106/61 Pulse Oximetry 94 94 96 Oxygen Delivery Room Air 11/23/22 00:00 11/23/22 04:00 Temperature 98.2 F 98.2 F Pulse Rate 82 72 Respiratory Rate 16 16 Blood Pressure 108/64 95/53 L Pulse Oximetry 96 95 Oxygen Delivery Intake/Output Intake/Output: Intake & Output 11/20/22 07
--- NOTE | 2022-11-23 09:15 | P.PNIM_ITS ---
Progress Note: A&P Assessment and Plan (1) Acute on chronic pancreatitis: Code(s): K85.90 - Acute pancreatitis without necrosis or infection, unspecified; K86.1 - Other chronic pancreatitis Status: Acute Assessment and Plan: * Presented to the emergency department for evaluation of upper abdominal pain for the last 4 days * History is consistent with acute on chronic pancreatitis * CT of the abdomen and pelvis did not show any acute findings. * Lipase within normal limits * Continue supportive care with bowel rest and IV fluid rehydration. * Analgesics and antiemetics are available as needed. (2) Dehydration: Code(s): E86.0 - Dehydration Status: Acute Assessment and Plan: * IV fluids * Continue to trend labs * turn fluids down to 75ml/hr (3) Hypertriglyceridemia: Code(s): E78.1 - Pure hyperglyceridemia Status: Chronic Assessment and Plan: * Triglyceride level 2406 * Labs indicate significant decline to 708, currently 706 * plasmapheresis initiated on 11/21/22, most likely repeat treatment today * Goal is for triglycerides down below 600 * Consult to Cardiology who recommended resuming her home medications if able to tolerate orally then * consulting Nephrology in regards to plasmapheresis. * Her medications will be reviewed and resumed as appropriate. 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 Currently patient is lying in bed. She did state that she feels a little bit better today she also stated that she did get a pain pill and her pain currently is a 6-7/10. She denies any current chest pain, shortness a breath, nausea, vomiting, diarrhea constipation. She is going to get plasmapheresis today triglycerides around 706. Review of Systems Review of Systems: All systems reviewed & are unremarkable except as noted in HPI and below Exam Narrative: General: well-nourished, ill-appearing 46-year-old female, laying in bed, uncomfortable, NARD Neuro: awake, alert and oriented x4, speech clear, no focal neuro deficits noted HEENMT: normocephalic, atraumatic, EOMI, sclerae anicteric, moist oral mucosa Respiratory: Clear to auscultation bilaterally without crackles, rhonchi or wheezes, nonlabored breathing Cardio: regular rate, regular rhythm with S1-S2 Abdomen: nondistended, hypoactive bowel sounds, soft, tender to palpation Extremities: no edema, erythema, or tenderness to palpation, DP pulses 2+ bilaterally Skin: no rashes or lesions, warm and dry Psych: appropriate mood and affect, judgment and insight intact
[2022-11-23] MEDS: diphenhydrAMINE HCl INJ 50 MG/ML VIAL 25 MG IV PUSH ×2 (11:53→18:54)
[2022-11-23 12:03] LABS: Glucose Point of Care 139 mg/dl (65-105)
[2022-11-23 14:00] VITALS: BP 108/62; PULSE 66; RESP 18; TEMP 36.2; O2SAT 95
--- NOTE | 2022-11-23 14:00 | PM.PNNEP ---
Progress Note: A&P Assessment and Plan (1) Hypertriglyceridemia: Code(s): E78.1 - Pure hyperglyceridemia Status: Chronic Assessment and Plan: improvement noted s/p plasmapheresis elevated triglyceride level noted on admission was symptomatic with regard to this issue plasmapheresis session on 11/21/22 fairly close to goal with recent triglyceride levels hold further plasmapheresis at this time continue ongoing medical therapy - resume fenofibrate + statin(?) if able to tolerated oral intake (2) Acute on chronic pancreatitis: Code(s): K85.90 - Acute pancreatitis without necrosis or infection, unspecified; K86.1 - Other chronic pancreatitis Status: Acute Assessment and Plan: history and exam appears consistent with this CT imaging is negative lipase level okay continue supportive therapy (3) Insulin dependent diabetes mellitus: Status: Chronic Assessment and Plan: poor control at baseline (based on HgbA1c) follow accu-cheks glycemic control per hospitalists Will continue to follow Subjective Date/time seen: 11/23/22 14:00 Interval history: Follow-up for hypertriglyceridemia. Triglyceride levels remain relatively stable so holding off on plasmapheresis today; abdominal pain seems better controlled at this time; tolerating clear liquid diet currently; no other issues/events overnight or earlier this morning. Exam Narrative: General: WD/WN female in NAD Heart: normal S1 and S2; no rub Lungs: clear to auscultation Abdomen: soft, nontender, positive bowel sounds Extremities: no cyanosis or clubbing; trace edema Skin: warm and intact Objective Data Vital Signs Vital Signs: Vital Signs Temp Pulse Resp BP Pulse Ox O2 Del Method 11/23/22 14:00 97.1 F L 66 18 108/62 95 11/23/22 08:00 Room Air 11/23/22 08:00 98.0 F 68 18 112/70 97 11/23/22 04:00 98.2 F 72 16 95/53 L 95 11/23/22 00:00 98.2 F 82 16 108/64 96 11/22/22 20:00 98.2 F 74 18 106/61 96 11/22/22 20:00 75 16 94 Room Air Intake/Output Intake/Output: Intake & Output 11/20/22 11/21/22 11/22/22 11/23/22 23:59 23:59 23:59 23:59 Intake Total 3000 2520 1000 3815 Output Total 600 4100 1450 1300 Balance 7414 -8370 -978 0305 Meds/Results Medications: Active Medications Generic Name Dose Route Start Last Admin Trade Name Freq PRN Reason Stop Dose Admin Dextrose 12.5 gm 11/20/22 00:51 Dextrose 50% 25 Gm/50 Ml Syringe IV PUSH PRN PRN Hypoglycemia Protocol Diphenhydramine HCl 25 mg 11/19/22 21:34 11/23/22 11:53 Diphenhydramine Hcl Inj 50 Mg/Ml Vial IV PUSH 25 mg Q4H PRN Administration Itching Glucagon 1 mg 11/20/22 00:51 Glucagon For Inj 1 Mg Vial IM PRN PRN Hypoglycemia Protocol Glucose 15 gm 11/20/22 00:51 Glucose Oral Gel 15 Gm Of Glucse In 37.5 Gm Tube PO PRN PRN Hypoglycemia Protocol Hydromorphone HCl 1 mg 11/19/22 20:19 11/23/22 15:55 Hydromorphone Hcl Inj (*Crx) 1 Mg/Ml Syr IV PUSH 1 mg Q3H PRN Administration Pain Rated 7-10 Sodium Chloride 1,000 mls @ 75 mls/hr 11/19/22 19:10 11/23/22 17:39 Normal Saline Iv IV CONT 75 mls/hr .[id number] RAPHAEL Administration Dextrose 1,000 mls @ 100 mls/hr 11/20/22 00:51 Dextrose 5% 1,000 Ml IVPB PRN PRN Hypoglycemia Protocol Insulin Aspart 3 - 6 units 11/23/22 08:00 11/23/22 17:08 Insulin Aspart (*Bkc) 100 Units/Ml SUB-Q Not Given TIDWM RAPHAEL Protocol Ondansetron HCl 4 mg 11/19/22 20:19 11/23/22 17:39 Ondansetron Inj 4 Mg/2 Ml Vial IV PUSH 4 mg Q6H PRN Administration Nausea And Vomiting Pantoprazole Sodium 40 mg 11/20/22 09:00 11/23/22 08:34 Pantoprazole Sodium Iv 40 Mg Vial IV PUSH 40 mg QAM RAPHAEL Administration Radiology Results: ITS Impressions Abdomen/Pelvis CT 11/19/22 18:48 Impression:
--- NOTE | 2022-11-23 14:00 | P.PNNP_ITS ---
Progress Note: A&P Assessment and Plan (1) Hypertriglyceridemia: Code(s): E78.1 - Pure hyperglyceridemia Status: Chronic Assessment and Plan: * improvement noted s/p plasmapheresis * elevated triglyceride level noted on admission * was symptomatic with regard to this issue * plasmapheresis session on 11/21/22 * fairly close to goal with recent triglyceride levels * hold further plasmapheresis at this time * continue ongoing medical therapy - resume fenofibrate + statin(?) if able to tolerated oral intake (2) Acute on chronic pancreatitis: Code(s): K85.90 - Acute pancreatitis without necrosis or infection, unspecified; K86.1 - Other chronic pancreatitis Status: Acute Assessment and Plan: * history and exam appears consistent with this * CT imaging is negative * lipase level okay * continue supportive therapy (3) Insulin dependent diabetes mellitus: Status: Chronic Assessment and Plan: * poor control at baseline (based on HgbA1c) * follow accu-cheks * glycemic control per hospitalists Will continue to follow Subjective Date/time seen: 11/23/22 14:00 Interval history: Follow-up for hypertriglyceridemia. Triglyceride levels remain relatively stable so holding off on plasmapheresis today; abdominal pain seems better controlled at this time; tolerating clear liquid diet currently; no other issues/events overnight or earlier this morning. Exam Narrative: General: WD/WN female in NAD Heart: normal S1 and S2; no rub Lungs: clear to auscultation Abdomen: soft, nontender, positive bowel sounds Extremities: no cyanosis or clubbing; trace edema Skin: warm and intact Objective Data Vital Signs Vital Signs: Vital Signs Temp Pulse Resp BP Pulse Ox O2 Del Method 11/23/22 14:00 97.1 F L 66 18 108/62 95 11/23/22 08:00 Room Air 11/23/22 08:00 98.0 F 68 18 112/70 97 11/23/22 04:00 98.2 F 72 16 95/53 L 95 11/23/22 00:00 98.2 F 82 16 108/64 96 11/22/22 20:00 98.2 F 74 18 106/61 96 11/22/22 20:00 75 16 94 Room Air Intake/Output Intake/Output: Intake & Output 11/20/22 11/21/22 11/22/22 11/23/22 23:59 23:59 23:59 23:59 Intake Total 3000 2520 1000 3815 Output Total 600 4100 1450 1300 Balance 7434 -0641 -843 0080 Meds/Results Medications: Active Medications Generic Name Dose Route Start Last Admin Trade Name Freq PRN Reason Stop Dose Admin Dextrose 12.5 gm 11/20/22 00:51 Dextrose 50% 25 Gm/50 Ml Syringe IV PUSH PRN PRN Hypoglycemia Protocol Diphenhydramine HCl 25 mg 11/19/22 21:34 11/23/22 11:53 Diphenhydramine Hcl Inj 50 Mg/Ml Vial IV PUSH 25 mg Q4H PRN Administration Itching Glucagon 1 mg 11/20/22 00:51 Glucagon For Inj 1 Mg Vial IM PRN PRN Hypoglycemia Protocol Glucose 15 gm 11/20/22 00:51 Glucose Oral Gel 15 Gm Of Glucse In 37.5 Gm Tube PO PRN PRN Hypoglycemia Protocol Hydromorphone HCl 1 mg 11/19/22 20:19 11/23/22 15:55 Hydromorphone Hcl Inj (*Crx) 1 Mg/
[2022-11-23 17:03] LABS: Glucose Point of Care 115 mg/dl (65-105)
[2022-11-23 20:00] VITALS: PULSE 76; RESP 17; O2SAT 95
[2022-11-23] MEDS: KETOROLAC 30 MG/ML VIAL (*BKC) IV PUSH (20:42)
[2022-11-23 21:15] LABS: Glucose Point of Care 226 mg/dl (65-105)
[2022-11-23 21:54] VITALS: BP 112/72; PULSE 72; RESP 16; TEMP 36.5; O2SAT 94
[2022-11-24] MEDS: HYDROmorphone HCL INJ (*CRX) 1 MG/ML SYR IV PUSH ×7 (01:24→22:15)
[2022-11-24] MEDS: ONDANSETRON INJ 4 MG/2 ML VIAL IV PUSH ×3 (04:32→19:54)
[2022-11-24] MEDS: diphenhydrAMINE HCl INJ 50 MG/ML VIAL 25 MG IV PUSH ×4 (04:37→22:15)
[2022-11-24] MEDS: SODIUM CHLORIDE 0.9% IV 1,000 ML 75 ML IV CONT ×3 (04:38→22:13)
[2022-11-24 05:59] LABS: Hematocrit 35.5 % (37.0-47.0); Hemoglobin 11.5 g/dL (12.0-15.0); Mean Corpuscular HGB Conc 32.4 g/dl (32-36); Mean Corpuscular Hemoglobin 29.6 pg (26-34); Mean Corpuscular Volume 91.3 fl (80-100); Mean Platelet Volume 9.5 fl (7.4-10.4); Platelet Count Result 176 k/mm3 (150-375); Red Blood Count 3.89 M/mm3 (4.2-5.4); Red Cell Distribution Width 16.5 % (11.5-14.5); White Blood Count 4.9 K/mm3 (4.5-10.0)
[2022-11-24 06:00] VITALS: BP 113/67; PULSE 67; RESP 20; TEMP 36; O2SAT 98
[2022-11-24 06:10] LABS: Alanine Aminotransferase 11 U/L (6-35); Albumin Level 3.3 g/dL (3.5-5.1); Alkaline Phosphatase 40 U/L (38-126); Anion Gap 3 mmol/L (8-16); Aspartate Amino Transferase 20 U/L (14-36); Bilirubin,Total 0.3 mg/dL (0.2-1.3); Blood Urea Nitrogen 3 mg/dL (7-17); Calcium 7.7 mg/dL (8.4-10.2); Carbon Dioxide 22 mmol/L (22-30); Chloride 107 mmol/L (98-107); Estimated CRCL calculation 126 ml/min; Estimated Glomerular Filt Rate > 60; Glucose 153 mg/dL (65-110); Potassium 3.2 mmol/L (3.4-5.0); Sodium 132 mmol/L (137-145)
[2022-11-24 08:26] LABS: Glucose Point of Care 140 mg/dl (65-105)
[2022-11-24 09:10] VITALS: BP 119/70; PULSE 68; O2SAT 96
[2022-11-24] MEDS: POTASSIUM CHLORIDE 20 MEQ ER TABLET 40 MEQ PO ×2 (09:12→12:20)
[2022-11-24] MEDS: PANTOPRAZOLE SODIUM IV 40 MG VIAL IV PUSH (09:13)
[2022-11-24 12:15] LABS: Glucose Point of Care 139 mg/dl (65-105)
[2022-11-24 12:45] LABS: Triglycerides 1035 mg/dL (<150)
--- NOTE | 2022-11-24 13:06 | PM.PNNEP ---
Progress Note: A&P Assessment and Plan (1) Hypertriglyceridemia: Code(s): E78.1 - Pure hyperglyceridemia Status: Chronic Assessment and Plan: improvement noted s/p plasmapheresis elevated triglyceride level noted on admission was symptomatic with regard to this issue plasmapheresis session on 11/21/22 however, TG level up today in association with more abdominal pain tentatively plan for plasmapheresis tomorrow (11/25/22) unless triglyceride level significantly better continue ongoing medical therapy - resume fenofibrate + statin today (2) Acute on chronic pancreatitis: Code(s): K85.90 - Acute pancreatitis without necrosis or infection, unspecified; K86.1 - Other chronic pancreatitis Status: Acute Assessment and Plan: history and exam appears consistent with this CT imaging is negative lipase level okay continue supportive therapy (3) Insulin dependent diabetes mellitus: Status: Chronic Assessment and Plan: poor control at baseline (based on HgbA1c) follow accu-cheks glycemic control per hospitalists Will continue to follow Subjective Date/time seen: 11/24/22 13:06 Interval history: Follow-up for hypertriglyceridemia. Appears to be having more epigastric and LUQ pain since yesterday; had been tolerating clear liquid diet but attempted to each some [place] fries and was unable to tolerate; mild nausea but no vomiting recently; triglyceride level up today in comparison to yesterday. Exam Narrative: General: WD/WN female in NAD Heart: normal S1 and S2; no rub Lungs: clear to auscultation Abdomen: soft, mild TTP; positive bowel sounds Extremities: no cyanosis or clubbing; trace edema Skin: no rash Objective Data Vital Signs Vital Signs: Vital Signs Temp Pulse Resp BP Pulse Ox O2 Del Method 11/24/22 09:00 Room Air 11/24/22 09:10 68 119/70 96 11/24/22 06:00 96.8 F L 67 20 113/67 98 11/23/22 20:00 76 17 95 Room Air 11/23/22 21:54 97.7 F 72 16 112/72 94 Intake/Output Intake/Output: Intake & Output 11/21/22 11/22/22 11/23/22 11/24/22 23:59 23:59 23:59 23:59 Intake Total 2520 1000 3815 2600 Output Total 4100 1450 1300 900 Balance -1580 -450 2515 1700 Meds/Results Medications: Active Medications Generic Name Dose Route Start Last Admin Trade Name Freq PRN Reason Stop Dose Admin Bupropion HCl 150 mg 11/25/22 09:00 Bupropion Hcl Sr (12 Hr) 150 Mg Tab PO DAILY RAPHAEL Citalopram Hydrobromide 40 mg 11/25/22 09:00 Citalopram Hydrobromide 20 Mg Tablet PO DAILY RAPHAEL Dextrose 12.5 gm 11/20/22 00:51 Dextrose 50% 25 Gm/50 Ml Syringe IV PUSH PRN PRN Hypoglycemia Protocol Diphenhydramine HCl 25 mg 11/19/22 21:34 11/24/22 09:17 Diphenhydramine Hcl Inj 50 Mg/Ml Vial IV PUSH 25 mg Q4H PRN Administration Itching Fenofibrate 145 mg 11/25/22 15:23 Fenofibrate Nanocrystallized 145 Mg Tablet PO DAILY RAPHAEL Glucagon 1 mg 11/20/22 00:51 Glucagon For Inj 1 Mg Vial IM PRN PRN Hypoglycemia Protocol Glucose 15 gm 11/20/22 00:51 Glucose Oral Gel 15 Gm Of Glucse In 37.5 Gm Tube PO PRN PRN Hypoglycemia Protocol Hydromorphone HCl 1 mg 11/24/22 15:12 Hydromorphone Hcl Inj (*Crx) 1 Mg/Ml Syr IV PUSH Q2H PRN Pain Rated 7-10 Sodium Chloride 1,000 mls @ 75 mls/hr 11/19/22 19:10 11/24/22 09:11 Normal Saline Iv IV CONT 75 mls/hr .[id number] RAPHAEL Administration Dextrose 1,000 mls @ 100 mls/hr 11/20/22 00:51 Dextrose 5% 1,000 Ml IVPB PRN PRN Hypoglycemia Protocol Insulin Aspart 3 - 6 units 11/23/22 08:00 11/24/22 12:30 Insulin Aspart (*Bkc) 100 Units/Ml SUB-Q Not Given TIDWM RAPHAEL Protocol Ketorolac Tromethamine 30 mg 11/23/22 20:06 11/23/22 20:42 Ketorolac 30 Mg/Ml Vial (*Bkc) IV PUSH 30 mg Q6H PRN Administration Pain Ra
[2022-11-24 14:00] VITALS: BP 125/73; PULSE 74; RESP 18; TEMP 36.2; O2SAT 98
--- NOTE | 2022-11-24 15:03 | P.PNIM_ITS ---
Progress Note: A&P Assessment and Plan (1) Acute on chronic pancreatitis: Code(s): K85.90 - Acute pancreatitis without necrosis or infection, unspecified; K86.1 - Other chronic pancreatitis Status: Acute Assessment and Plan: * Presented to the emergency department for evaluation of upper abdominal pain for 4 days prior to 11/19/2022 * History is consistent with acute on chronic pancreatitis * CT of the abdomen and pelvis did not show any acute findings. * Lipase within normal limits * Continue supportive care with bowel rest and IV fluid rehydration. * Analgesics and antiemetics are available as needed. (2) Dehydration: Code(s): E86.0 - Dehydration Status: Acute Assessment and Plan: * IV fluids at 75 ml/hr * Continue to trend labs (3) Hypertriglyceridemia: Code(s): E78.1 - Pure hyperglyceridemia Status: Chronic Assessment and Plan: * Goal is for triglycerides down below 600 * Consulted Cardiology who recommended resuming her home medications if able to tolerate orally then * consulted Nephrology for plasmapheresis. 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 Mild nausea. No emesis. Tolerating some liquids. Denied chest pain or shortness of breath. Denied bowel or bladder changes. Denied abnormal bleeding. Denied fevers or chills. No focal weakness. Review of Systems Review of Systems: All systems reviewed & are unremarkable except as noted in HPI and below Exam Narrative: HEENT: PERRL, sclerae nonicteric, pharyngeal mucosa pink and intact NECK: No JVD CHEST: Clear to auscultation. Normal effort. HEART: NL S1/S2, regular, no murmur ABDOMEN: BS+, soft, tender to light palpation over the epigastrium and left upper quad, no mass, no bruits EXTREMITIES: No cyanosis, edema, or clubbing NEUROLOGIC: CN intact and symmetric to inspection. MUSCULOSKELETAL: Tone and strength symmetric. PSYCH: Alert. Oriented to person, place, and time. Objective Data Vital Signs Vital Signs: Vital Signs - 24 hr 11/23/22 21:54 11/23/22 20:00 11/24/22 06:00 Temperature 97.7 F 96.8 F L Pulse Rate 72 76 67 Respiratory Rate 16 17 20 Blood Pressure 112/72 113/67 Pulse Oximetry 94 95 98 Oxygen Delivery Room Air 11/24/22 09:10 11/24/22 09:00 Temperature Pulse Rate 68 Respiratory Rate Blood Pressure 119/70 Pulse Oximetry 96 Oxygen Delivery Room Air Intake/Output Intake/Output: Intake & Output 11/21/22 11/22/22 11/23/22 11/24/22
--- NOTE | 2022-11-24 15:03 | PM.IMPN ---
Progress Note: A&P Assessment and Plan (1) Acute on chronic pancreatitis: Code(s): K85.90 - Acute pancreatitis without necrosis or infection, unspecified; K86.1 - Other chronic pancreatitis Status: Acute Assessment and Plan: Presented to the emergency department for evaluation of upper abdominal pain for 4 days prior to 11/19/2022 History is consistent with acute on chronic pancreatitis CT of the abdomen and pelvis did not show any acute findings. Lipase within normal limits Continue supportive care with bowel rest and IV fluid rehydration. Analgesics and antiemetics are available as needed. (2) Dehydration: Code(s): E86.0 - Dehydration Status: Acute Assessment and Plan: IV fluids at 75 ml/hr Continue to trend labs (3) Hypertriglyceridemia: Code(s): E78.1 - Pure hyperglyceridemia Status: Chronic Assessment and Plan: Goal is for triglycerides down below 600 Consulted Cardiology who recommended resuming her home medications if able to tolerate orally then consulted Nephrology for plasmapheresis. 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 Mild nausea. No emesis. Tolerating some liquids. Denied chest pain or shortness of breath. Denied bowel or bladder changes. Denied abnormal bleeding. Denied fevers or chills. No focal weakness. Review of Systems Review of Systems: All systems reviewed & are unremarkable except as noted in HPI and below Exam Narrative: HEENT: PERRL, sclerae nonicteric, pharyngeal mucosa pink and intact NECK: No JVD CHEST: Clear to auscultation. Normal effort. HEART: NL S1/S2, regular, no murmur ABDOMEN: BS+, soft, tender to light palpation over the epigastrium and left upper quad, no mass, no bruits EXTREMITIES: No cyanosis, edema, or clubbing NEUROLOGIC: CN intact and symmetric to inspection. MUSCULOSKELETAL: Tone and strength symmetric. PSYCH: Alert. Oriented to person, place, and time. Objective Data Vital Signs Vital Signs: Vital Signs - 24 hr 11/23/22 21:54 11/23/22 20:00 11/24/22 06:00 Temperature 97.7 F 96.8 F L Pulse Rate 72 76 67 Respiratory Rate 16 17 20 Blood Pressure 112/72 113/67 Pulse Oximetry 94 95 98 Oxygen Delivery Room Air 11/24/22 09:10 11/24/22 09:00 Temperature Pulse Rate 68 Respiratory Rate Blood Pressure 119/70 Pulse Oximetry 96 Oxygen Delivery Room Air Intake/Output Intake/Output: Intake & Output 11/21/22 11/22/22 11/23/22 11/24/22 23:59 23:59 23:59 23:59 Intake Total 2520 1000 3815 2600 Output Total 4100 1450 1300 900 Balance -1580 -450 2515 1700 Meds/Results Medications: Active Medications Generic Name Dose Route Start Last Admin Trade Name Freq PRN Reason Stop Dose Admin Dextrose 12.5 gm 11/20/22 00:51 Dextrose 50% 25 Gm/50 Ml Syringe IV PUSH PRN PRN Hypoglycemia Protocol Diphenhydramine HCl 25 mg 11/19/22 21:34 11/24/22 09:17 Diphenhydramine Hcl Inj 50 Mg/Ml Vial IV PUSH 25 mg Q4H PRN Administration Itching Glucagon 1 mg 11/20/22 00:51 Glucagon For Inj 1 Mg Vial IM PRN PRN Hypoglycemia Protocol Glucose 15 gm 11/20/22 00:51 Glucose Oral Gel 15 Gm Of Glucse In 37.5 Gm Tub
[2022-11-24 17:25] LABS: Glucose Point of Care 124 mg/dl (65-105)
[2022-11-24 19:51] LABS: Glucose Point of Care 210 mg/dl (65-105)
[2022-11-24 20:00] VITALS: PULSE 71; RESP 18; O2SAT 95
[2022-11-24 20:19] VITALS: BP 119/74; PULSE 71; RESP 18; TEMP 36.8; O2SAT 95
[2022-11-25] VITALS (10 sets, daily range): BP systolic 105–140; BP diastolic 72–85; PULSE 69–77; RESP 16–18; TEMP 36.3–36.6; O2SAT 92–98
[2022-11-25] MEDS: HYDROmorphone HCL INJ (*CRX) 1 MG/ML SYR IV PUSH ×10 (00:18→22:44)
[2022-11-25] MEDS: ONDANSETRON INJ 4 MG/2 ML VIAL IV PUSH ×2 (03:27→17:29)
[2022-11-25 05:27] LABS: Hematocrit 37.9 % (37.0-47.0); Hemoglobin 12.2 g/dL (12.0-15.0); Mean Corpuscular HGB Conc 32.2 g/dl (32-36); Mean Corpuscular Hemoglobin 29.3 pg (26-34); Mean Corpuscular Volume 91.1 fl (80-100); Mean Platelet Volume 9.6 fl (7.4-10.4); Platelet Count Result 192 k/mm3 (150-375); Red Blood Count 4.16 M/mm3 (4.2-5.4); Red Cell Distribution Width 16.2 % (11.5-14.5); White Blood Count 5.8 K/mm3 (4.5-10.0)
[2022-11-25] MEDS: LEVOTHYROXINE SODIUM 100 MCG TABLET 200 MCG PO (05:28)
[2022-11-25] MEDS: diphenhydrAMINE HCl INJ 50 MG/ML VIAL 25 MG IV PUSH ×3 (05:29→22:44)
[2022-11-25 05:52] LABS: Anion Gap -1 mmol/L (8-16); Calcium 7.7 mg/dL (8.4-10.2); Carbon Dioxide 29 mmol/L (22-30); Chloride 104 mmol/L (98-107); Estimated CRCL calculation 129 ml/min; Estimated Glomerular Filt Rate > 60; Glucose 155 mg/dL (65-110); Magnesium 1.5 mg/dL (1.6-2.3); Potassium 3.5 mmol/L (3.4-5.0); Sodium 132 mmol/L (137-145)
[2022-11-25 08:15] LABS: Blood Urea Nitrogen < 2 mg/dL (7-17); Triglycerides 1278 mg/dL (<150)
[2022-11-25] MEDS: PANTOPRAZOLE SODIUM IV 40 MG VIAL IV PUSH (08:16)
[2022-11-25] MEDS: CITALOPRAM HYDROBROMIDE 20 MG TABLET 40 MG PO (08:16)
[2022-11-25] MEDS: buPROPion HCL SR (12 HR) 150 MG TAB PO (08:16)
[2022-11-25 10:20] LABS: Glucose Point of Care 197 mg/dl (65-105)
[2022-11-25] MEDS: LIDOCAINE HCL 4% SOLN 50 ML BTL 1 APPLIC TOPICAL (11:00)
[2022-11-25] MEDS: CALCIUM GLUC 2,000 MG/NS 100ML 2,000 MG/100 ML BAG 100 MG IVPB (11:18)
[2022-11-25] MEDS: SODIUM CHLORIDE 0.9% IV 1,000 ML 10 ML IV CONT (11:18)
[2022-11-25] MEDS: SODIUM CHLORIDE 0.9% IV 1,000 ML 75 ML IV CONT ×2 (11:45→19:55)
--- NOTE | 2022-11-25 12:00 | P.PNNP_ITS ---
Progress Note: A&P Assessment and Plan (1) Hypertriglyceridemia: Code(s): E78.1 - Pure hyperglyceridemia Status: Chronic Assessment and Plan: * previous improvement noted s/p plasmapheresis * elevated triglyceride level noted on admission * appears symptomatic with regard to this issue * plasmapheresis session on 11/21/22 * however, TG level up today in association with more abdominal pain * plasmapheresis today (11/25/22) * continue ongoing medical therapy - resume dfenofibrate + statin today (2) Acute on chronic pancreatitis: Code(s): K85.90 - Acute pancreatitis without necrosis or infection, unspecified; K86.1 - Other chronic pancreatitis Status: Acute Assessment and Plan: * history and exam appears consistent with this * CT imaging is negative * lipase level okay * continue supportive therapy (3) Insulin dependent diabetes mellitus: Status: Chronic Assessment and Plan: * poor control at baseline (based on HgbA1c) * follow accu-cheks * glycemic control per hospitalists Will continue to follow Subjective Date/time seen: 11/25/22 12:00 Interval history: Follow-up for hypertriglyceridemia. Tolerating plasmapheresis treatment at the time of my visit (seen on plasmapheresis at 11:48AM); reports generalized fatigue in association with fluctuating abdominal pain; noted rise if triglyceride levels in the last 24 - 48 hours; resumed on fenofibrate and crestor. Exam Narrative: General: WD/WN female in NAD Heart: normal S1 and S2; no rub Lungs: clear to auscultation Abdomen: soft, mild TTP; positive bowel sounds Extremities: no cyanosis or clubbing; trace edema Skin: no nodules Objective Data Vital Signs Vital Signs: Vital Signs Temp Pulse Resp BP Pulse Ox O2 Del Method 11/25/22 12:00 97.3 F L 71 17 126/74 11/25/22 11:15 97.6 F 69 18 140/77 93 11/25/22 06:00 97.4 F L 72 18 113/72 92 11/24/22 20:00 71 18 95 Room Air 11/24/22 20:19 98.3 F 71 18 119/74 95 11/24/22 14:00 97.1 F L 74 18 125/73 98 Intake/Output Intake/Output: Intake & Output 11/22/22 11/23/22 11/24/2211/25/23 23:59 23:59 23:59 23:59 Intake Total 1000 3815 4590 1590 Output Total 1450 1300 900 700 Balance -450 2515 7971 4958 Meds/Results Medications: Active Medications Generic Name Dose Route Start Last Admin Trade Name Freq PRN Reason Stop Dose Admin Bupropion HCl 150 mg 11/25/22 09:00 11/25/22 08:16 Bupropion Hcl Sr (12 Hr) 150 Mg Tab PO 150 mg DAILY RAPHAEL Administration Citalopram Hydrobromide 40 mg 11/25/22 09:00 11/25/22 08:16 Citalopram Hydrobromide 20 Mg Tablet PO 40 mg DAILY RAPHAEL Administration Dextrose 12.5 gm 11/20/22 00:51 Dextrose 50% 25 Gm/50 Ml Syringe IV PUSH PRN PRN Hypoglycemia Protocol Diphenhydramine HCl 25 mg 11/19/22 21:34 11/25/22 05:29 Diphenhydramine Hcl Inj 50 Mg/Ml Vial IV PUSH 25 mg Q4H PRN Administration Itching Fenofibrate 145 mg 11/25/22 15:23 Fenofibrate Nanocrystallized 145 Mg Tablet PO DAILY RAPHAEL Glucag
--- NOTE | 2022-11-25 12:00 | PM.PNNEP ---
Progress Note: A&P Assessment and Plan (1) Hypertriglyceridemia: Code(s): E78.1 - Pure hyperglyceridemia Status: Chronic Assessment and Plan: previous improvement noted s/p plasmapheresis elevated triglyceride level noted on admission appears symptomatic with regard to this issue plasmapheresis session on 11/21/22 however, TG level up today in association with more abdominal pain plasmapheresis today (11/25/22) continue ongoing medical therapy - resume dfenofibrate + statin today (2) Acute on chronic pancreatitis: Code(s): K85.90 - Acute pancreatitis without necrosis or infection, unspecified; K86.1 - Other chronic pancreatitis Status: Acute Assessment and Plan: history and exam appears consistent with this CT imaging is negative lipase level okay continue supportive therapy (3) Insulin dependent diabetes mellitus: Status: Chronic Assessment and Plan: poor control at baseline (based on HgbA1c) follow accu-cheks glycemic control per hospitalists Will continue to follow Subjective Date/time seen: 11/25/22 12:00 Interval history: Follow-up for hypertriglyceridemia. Tolerating plasmapheresis treatment at the time of my visit (seen on plasmapheresis at 11:48AM); reports generalized fatigue in association with fluctuating abdominal pain; noted rise if triglyceride levels in the last 24 - 48 hours; resumed on fenofibrate and crestor. Exam Narrative: General: WD/WN female in NAD Heart: normal S1 and S2; no rub Lungs: clear to auscultation Abdomen: soft, mild TTP; positive bowel sounds Extremities: no cyanosis or clubbing; trace edema Skin: no nodules Objective Data Vital Signs Vital Signs: Vital Signs Temp Pulse Resp BP Pulse Ox O2 Del Method 11/25/22 12:00 97.3 F L 71 17 126/74 11/25/22 11:15 97.6 F 69 18 140/77 93 11/25/22 06:00 97.4 F L 72 18 113/72 92 11/24/22 20:00 71 18 95 Room Air 11/24/22 20:19 98.3 F 71 18 119/74 95 11/24/22 14:00 97.1 F L 74 18 125/73 98 Intake/Output Intake/Output: Intake & Output 11/22/22 11/23/22 11/24/22 11/25/22 23:59 23:59 23:59 23:59 Intake Total 1000 3815 4590 4830 Output Total 1450 1300 900 700 Balance -450 4506 1977 8230 Meds/Results Medications: Active Medications Generic Name Dose Route Start Last Admin Trade Name Freq PRN Reason Stop Dose Admin Bupropion HCl 150 mg 11/25/22 09:00 11/25/22 08:16 Bupropion Hcl Sr (12 Hr) 150 Mg Tab PO 150 mg DAILY RAPAHEL Administration Citalopram Hydrobromide 40 mg 11/25/22 09:00 11/25/22 08:16 Citalopram Hydrobromide 20 Mg Tablet PO 40 mg DAILY RAPHAEL Administration Dextrose 12.5 gm 11/20/22 00:51 Dextrose 50% 25 Gm/50 Ml Syringe IV PUSH PRN PRN Hypoglycemia Protocol Diphenhydramine HCl 25 mg 11/19/22 21:34 11/25/22 05:29 Diphenhydramine Hcl Inj 50 Mg/Ml Vial IV PUSH 25 mg Q4H PRN Administration Itching Fenofibrate 145 mg 11/25/22 15:23 Fenofibrate Nanocrystallized 145 Mg Tablet PO DAILY RAPHAEL Glucagon 1 mg 11/20/22 00:51 Glucagon For Inj 1 Mg Vial IM PRN PRN Hypoglycemia Protocol Glucose 15 gm 11/20/22 00:51 Glucose Oral Gel 15 Gm Of Glucse In 37.5 Gm Tube PO PRN PRN Hypoglycemia Protocol Hydromorphone HCl 1 mg 11/24/22 15:12 11/25/22 12:58 Hydromorphone Hcl Inj (*Crx) 1 Mg/Ml Syr IV PUSH 1 mg Q2H PRN Administration Pain Rated 7-10 Sodium Chloride 1,000 mls @ 75 mls/hr 11/19/22 19:10 11/25/22 11:45 Normal Saline Iv IV CONT 75 mls/hr .[id number] RAPHAEL Administration Dextrose 1,000 mls @ 100 mls/hr 11/20/22 00:51 Dextrose 5% 1,000 Ml IVPB PRN PRN Hypoglycemia Protocol Albumin Human 162.5 gm in 3,250 mls @ 999 mls/hr 11/25/22 11:00 11/25/22 12:57 Albumin Human 5% IV CONT 11/25/22 14:15 Infused .Q3H16M ONE Infusion Insulin
[2022-11-25 12:14] LABS: Glucose Point of Care 149 mg/dl (65-105)
--- NOTE | 2022-11-25 12:44 | P.PNIM_ITS ---
Progress Note: A&P Assessment and Plan (1) Acute on chronic pancreatitis: Code(s): K85.90 - Acute pancreatitis without necrosis or infection, unspecified; K86.1 - Other chronic pancreatitis Status: Acute Assessment and Plan: * Presented to the emergency department for evaluation of upper abdominal pain for 4 days prior to 11/19/2022 * History is consistent with acute on chronic pancreatitis * CT of the abdomen and pelvis did not show any acute findings. * Lipase within normal limits * Continue supportive care with bowel rest and IV fluid rehydration. * Analgesics and antiemetics are available as needed. * Continue plasmapheresis for hypertriglyceridemia (2) Dehydration: Code(s): E86.0 - Dehydration Status: Acute Assessment and Plan: * IV fluids at 75 ml/hr * Continue to trend labs (3) Hypertriglyceridemia: Code(s): E78.1 - Pure hyperglyceridemia Status: Chronic Assessment and Plan: * Goal is for triglycerides down below 600 * Consulted Cardiology who recommended resuming her home medications if able to tolerate orally then * consulted Nephrology for plasmapheresis. 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 Nauseated but no emesis. No fevers or chills. Severely fatigued on plasmapheresis currently. Denied chest pain or shortness of breath or swelling. Denied change in stools or urine. Denied abnormal bleeding. Denied focal weakness. Review of Systems Review of Systems: All systems reviewed & are unremarkable except as noted in HPI and below Exam Narrative: HEENT: PERRL, sclerae nonicteric, pharyngeal mucosa pink and intact NECK: No JVD CHEST: Clear to auscultation. Normal effort. HEART: NL S1/S2, regular, no murmur ABDOMEN: BS+, soft, tender to light palpation over the epigastrium and left upper quad, no mass, no bruits EXTREMITIES: No cyanosis, edema, or clubbing NEUROLOGIC: CN intact and symmetric to inspection. MUSCULOSKELETAL: Tone and strength symmetric. PSYCH: Alert. Oriented to person, place, and time. Objective Data Vital Signs Vital Signs: Vital Signs - 24 hr 11/24/22 14:00 11/24/22 20:19 11/24/22 20:00 Temperature 97.1 F L 98.3 F Pulse Rate 74 71 71 Respiratory Rate 18 18 18 Blood Pressure 125/73 119/74 Pulse Oximetry 98 95 95 Oxygen Delivery Room Air 11/25/22 06:00 11/25/22 11:15 11/25/22 12:00 Temperature 97.4 F L 97.6 F 97.3 F L
--- NOTE | 2022-11-25 12:44 | PM.IMPN ---
Progress Note: A&P Assessment and Plan (1) Acute on chronic pancreatitis: Code(s): K85.90 - Acute pancreatitis without necrosis or infection, unspecified; K86.1 - Other chronic pancreatitis Status: Acute Assessment and Plan: Presented to the emergency department for evaluation of upper abdominal pain for 4 days prior to 11/19/2022 History is consistent with acute on chronic pancreatitis CT of the abdomen and pelvis did not show any acute findings. Lipase within normal limits Continue supportive care with bowel rest and IV fluid rehydration. Analgesics and antiemetics are available as needed. Continue plasmapheresis for hypertriglyceridemia (2) Dehydration: Code(s): E86.0 - Dehydration Status: Acute Assessment and Plan: IV fluids at 75 ml/hr Continue to trend labs (3) Hypertriglyceridemia: Code(s): E78.1 - Pure hyperglyceridemia Status: Chronic Assessment and Plan: Goal is for triglycerides down below 600 Consulted Cardiology who recommended resuming her home medications if able to tolerate orally then consulted Nephrology for plasmapheresis. 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 Nauseated but no emesis. No fevers or chills. Severely fatigued on plasmapheresis currently. Denied chest pain or shortness of breath or swelling. Denied change in stools or urine. Denied abnormal bleeding. Denied focal weakness. Review of Systems Review of Systems: All systems reviewed & are unremarkable except as noted in HPI and below Exam Narrative: HEENT: PERRL, sclerae nonicteric, pharyngeal mucosa pink and intact NECK: No JVD CHEST: Clear to auscultation. Normal effort. HEART: NL S1/S2, regular, no murmur ABDOMEN: BS+, soft, tender to light palpation over the epigastrium and left upper quad, no mass, no bruits EXTREMITIES: No cyanosis, edema, or clubbing NEUROLOGIC: CN intact and symmetric to inspection. MUSCULOSKELETAL: Tone and strength symmetric. PSYCH: Alert. Oriented to person, place, and time. Objective Data Vital Signs Vital Signs: Vital Signs - 24 hr 11/24/22 14:00 11/24/22 20:19 11/24/22 20:00 Temperature 97.1 F L 98.3 F Pulse Rate 74 71 71 Respiratory Rate 18 18 18 Blood Pressure 125/73 119/74 Pulse Oximetry 98 95 95 Oxygen Delivery Room Air 11/25/22 06:00 11/25/22 11:15 11/25/22 12:00 Temperature 97.4 F L 97.6 F 97.3 F L Pulse Rate 72 69 71 Respiratory Rate 18 18 17 Blood Pressure 113/72 140/77 126/74 Pulse Oximetry 92 93 Oxygen Delivery Intake/Output Intake/Output: Intake & Output 11/22/22 11/23/22 11/24/22 11/25/22 23:59 23:59 23:59 23:59 Intake Total 1000 3815 4590 1360 Output Total 1450 1300 900 700 Balance -450 2515 3690 660 Meds/Results Medications: Active Medications Generic Name Dose Route Start Last Admin Trade Name Freq PRN Reason Stop Dose Admin Bupropion HCl 150 mg 11/25/22 09:00 11/25/22 08:16 Bupropion Hcl Sr (12 Hr) 150 Mg Tab PO 150 mg DAILY RAPHAEL Administration Citalopram Hydrobromide 40 mg 07
[2022-11-25] MEDS: HEPARIN SODIUM, PORCINE 10,000 UNITS/10 ML VIAL 10000 UNITS IV PUSH (13:00)
[2022-11-25] MEDS: POTASSIUM CHLORIDE 20 MEQ ER TABLET 40 MEQ PO (15:06)
[2022-11-25] MEDS: ROSUVASTATIN 10 MG TABLET 20 MG PO (15:06)
[2022-11-25] MEDS: FENOFIBRATE NANOCRYSTALLIZED 145 MG TABLET PO (15:06)
[2022-11-25 17:23] LABS: Glucose Point of Care 149 mg/dl (65-105)
[2022-11-25 20:03] LABS: Glucose Point of Care 156 mg/dl (65-105)
[2022-11-26] MEDS: diphenhydrAMINE HCl INJ 50 MG/ML VIAL 25 MG IV PUSH (04:43)
[2022-11-26] MEDS: HYDROmorphone HCL INJ (*CRX) 1 MG/ML SYR IV PUSH ×7 (04:44→22:58)
[2022-11-26] MEDS: LEVOTHYROXINE SODIUM 100 MCG TABLET 200 MCG PO (05:07)
[2022-11-26] MEDS: SODIUM CHLORIDE 0.9% IV 1,000 ML 75 ML IV CONT ×2 (05:09→12:11)
[2022-11-26 05:59] LABS: Hematocrit 36.6 % (37.0-47.0); Hemoglobin 11.9 g/dL (12.0-15.0); Mean Corpuscular HGB Conc 32.5 g/dl (32-36); Mean Corpuscular Hemoglobin 29.5 pg (26-34); Mean Corpuscular Volume 90.8 fl (80-100); Mean Platelet Volume 9.6 fl (7.4-10.4); Platelet Count Result 151 k/mm3 (150-375); Red Blood Count 4.03 M/mm3 (4.2-5.4); Red Cell Distribution Width 16.1 % (11.5-14.5); White Blood Count 5.3 K/mm3 (4.5-10.0)
[2022-11-26 06:00] VITALS: BP 112/68; PULSE 73; RESP 18; TEMP 36.7; O2SAT 95
[2022-11-26 06:14] LABS: Anion Gap 2 mmol/L (8-16); Calcium 7.4 mg/dL (8.4-10.2); Carbon Dioxide 25 mmol/L (22-30); Chloride 107 mmol/L (98-107); Estimated CRCL calculation 131 ml/min; Estimated Glomerular Filt Rate > 60; Glucose 131 mg/dL (65-110); Magnesium 1.3 mg/dL (1.6-2.3); Potassium 3.4 mmol/L (3.4-5.0); Sodium 134 mmol/L (137-145); Triglycerides 438 mg/dL (<150)
[2022-11-26 06:24] LABS: Blood Urea Nitrogen < 2 mg/dL (7-17)
[2022-11-26 08:41] LABS: Glucose Point of Care 146 mg/dl (65-105)
[2022-11-26] MEDS: ONDANSETRON INJ 4 MG/2 ML VIAL IV PUSH ×2 (09:17→17:43)
[2022-11-26] MEDS: PANTOPRAZOLE SODIUM IV 40 MG VIAL IV PUSH (09:17)
[2022-11-26] MEDS: ROSUVASTATIN 10 MG TABLET 20 MG PO (09:19)
[2022-11-26] MEDS: CITALOPRAM HYDROBROMIDE 20 MG TABLET 40 MG PO (09:20)
[2022-11-26] MEDS: buPROPion HCL SR (12 HR) 150 MG TAB PO (09:20)
[2022-11-26] MEDS: FENOFIBRATE NANOCRYSTALLIZED 145 MG TABLET PO (09:20)
--- NOTE | 2022-11-26 10:15 | P.PNNP_ITS ---
Progress Note: A&P Assessment and Plan (1) Hypertriglyceridemia: Code(s): E78.1 - Pure hyperglyceridemia Status: Chronic Assessment and Plan: * mprovement noted s/p plasmapheresis * elevated triglyceride level noted on admission * appeared symptomatic with regard to this issue * plasmapheresis session on 11/21/22 and on 11/25/22 * goal achieved - TG level < 600 * hold further plasmapheresis at this time * continue ongoing medical therapy * back on fenofibrate + statin (2) Acute on chronic pancreatitis: Code(s): K85.90 - Acute pancreatitis without necrosis or infection, unspecified; K86.1 - Other chronic pancreatitis Status: Acute Assessment and Plan: * history and exam on admission appears consistent with this * CT imaging is negative * lipase level okay * advance diet as tolerated * continue supportive therapy (3) Insulin dependent diabetes mellitus: Status: Chronic Assessment and Plan: * poor control at baseline (based on HgbA1c) * follow accu-cheks * glycemic control per hospitalists Will continue to follow Subjective Date/time seen: 11/26/22 13:03 Interval history: Follow-up for hypertriglyceridemia. Tolerated plasmapheresis yesterday with improvement in triglyceride levels as noted by AM labs; abdominal pain seems to be doing better; no acute distress noted. Exam Narrative: General: WD/WN female in NAD Heart: normal S1 and S2; no rub Lungs: clear to auscultation Abdomen: soft, mild TTP; positive bowel sounds Extremities: no cyanosis or clubbing; trace edema Skin: warm and dry Objective Data Vital Signs Vital Signs: Vital Signs Temp Pulse Resp BP Pulse Ox O2 Del Method 11/26/22 06:00 98.0 F 73 18 112/68 95 11/25/22 20:00 76 18 98 Room Air 11/25/22 19:55 97.8 F 76 18 136/85 98 11/25/22 13:40 92 Room Air 11/25/22 14:57 97.6 F 69 16 115/79 97 Intake/Output Intake/Output: Intake & Output 11/23/22 11/24/22 11/25/22 11/26/22 23:59 23:59 23:59 23:59 Intake Total 3815 4590 6740 2450 Output Total 4704 365 4398 Balance 2514 7705 1931 2450 Meds/Results Medications: Active Medications Generic Name Dose Route Start Last Admin Trade Name Freq PRN Reason Stop Dose Admin Bupropion HCl 150 mg 11/25/22 09:00 11/26/22 09:20 Bupropion Hcl Sr (12 Hr) 150 Mg Tab PO 150 mg DAILY RAPHAEL Administration Citalopram Hydrobromide 40 mg 11/25/22 09:00 11/26/22 09:20 Citalopram Hydrobromide 20 Mg Tablet PO 40 mg DAILY RAPHAEL Administration Dextrose 12.5 gm 11/20/22 00:51 Dextrose 50% 25 Gm/50 Ml Syringe IV PUSH PRN PRN Hypoglycemia Protocol Diphenhydramine HCl 25 mg 11/19/22 21:34 11/26/22 04:43 Diphenhydramine Hcl Inj 50 Mg/Ml Vial IV PUSH 25 mg Q4H PRN Administration Itching Fenofibrate 145 mg 11/25/22 15:23 11/26/22 09:20 Fenofibrate Nanocrystallized 145 Mg Tablet PO 145 mg DAILY RAPHAEL Administration Glucagon 1 mg 11/20/22 00:51 Glucagon For Inj 1 Mg Vial IM PRN PRN Hypoglyce
--- NOTE | 2022-11-26 10:15 | PM.PNNEP ---
Progress Note: A&P Assessment and Plan (1) Hypertriglyceridemia: Code(s): E78.1 - Pure hyperglyceridemia Status: Chronic Assessment and Plan: mprovement noted s/p plasmapheresis elevated triglyceride level noted on admission appeared symptomatic with regard to this issue plasmapheresis session on 11/21/22 and on 11/25/22 goal achieved - TG level < 600 hold further plasmapheresis at this time continue ongoing medical therapy back on fenofibrate + statin (2) Acute on chronic pancreatitis: Code(s): K85.90 - Acute pancreatitis without necrosis or infection, unspecified; K86.1 - Other chronic pancreatitis Status: Acute Assessment and Plan: history and exam on admission appears consistent with this CT imaging is negative lipase level okay advance diet as tolerated continue supportive therapy (3) Insulin dependent diabetes mellitus: Status: Chronic Assessment and Plan: poor control at baseline (based on HgbA1c) follow accu-cheks glycemic control per hospitalists Will continue to follow Subjective Date/time seen: 11/26/22 13:03 Interval history: Follow-up for hypertriglyceridemia. Tolerated plasmapheresis yesterday with improvement in triglyceride levels as noted by AM labs; abdominal pain seems to be doing better; no acute distress noted. Exam Narrative: General: WD/WN female in NAD Heart: normal S1 and S2; no rub Lungs: clear to auscultation Abdomen: soft, mild TTP; positive bowel sounds Extremities: no cyanosis or clubbing; trace edema Skin: warm and dry Objective Data Vital Signs Vital Signs: Vital Signs Temp Pulse Resp BP Pulse Ox O2 Del Method 11/26/22 06:00 98.0 F 73 18 112/68 95 11/25/22 20:00 76 18 98 Room Air 11/25/22 19:55 97.8 F 76 18 136/85 98 11/25/22 13:40 92 Room Air 11/25/22 14:57 97.6 F 69 16 115/79 97 Intake/Output Intake/Output: Intake & Output 11/23/22 11/24/22 11/25/22 11/26/22 23:59 23:59 23:59 23:59 Intake Total 3818 4590 6740 2450 Output Total 9338 385 9139 Balance 2515 2130 1750 2450 Meds/Results Medications: Active Medications Generic Name Dose Route Start Last Admin Trade Name Freq PRN Reason Stop Dose Admin Bupropion HCl 150 mg 11/25/22 09:00 11/26/22 09:20 Bupropion Hcl Sr (12 Hr) 150 Mg Tab PO 150 mg DAILY RAPHAEL Administration Citalopram Hydrobromide 40 mg 11/25/22 09:00 11/26/22 09:20 Citalopram Hydrobromide 20 Mg Tablet PO 40 mg DAILY RAPHAEL Administration Dextrose 12.5 gm 11/20/22 00:51 Dextrose 50% 25 Gm/50 Ml Syringe IV PUSH PRN PRN Hypoglycemia Protocol Diphenhydramine HCl 25 mg 11/19/22 21:34 11/26/22 04:43 Diphenhydramine Hcl Inj 50 Mg/Ml Vial IV PUSH 25 mg Q4H PRN Administration Itching Fenofibrate 145 mg 11/25/22 15:23 11/26/22 09:20 Fenofibrate Nanocrystallized 145 Mg Tablet PO 145 mg DAILY RAPHAEL Administration Glucagon 1 mg 11/20/22 00:51 Glucagon For Inj 1 Mg Vial IM PRN PRN Hypoglycemia Protocol Glucose 15 gm 11/20/22 00:51 Glucose Oral Gel 15 Gm Of Glucse In 37.5 Gm Tube PO PRN PRN Hypoglycemia Protocol Hydromorphone HCl 1 mg 11/24/22 15:12 11/26/22 12:10 Hydromorphone Hcl Inj (*Crx) 1 Mg/Ml Syr IV PUSH 1 mg Q2H PRN Administration Pain Rated 7-10 Sodium Chloride 1,000 mls @ 75 mls/hr 11/19/22 19:10 11/26/22 12:11 Normal Saline Iv IV CONT 75 mls/hr .[id number] RAPHAEL Administration Dextrose 1,000 mls @ 100 mls/hr 11/20/22 00:51 Dextrose 5% 1,000 Ml IVPB PRN PRN Hypoglycemia Protocol Insulin Aspart 3 - 6 units 11/23/22 08:00 11/26/22 09:08 Insulin Aspart (*Bkc) 100 Units/Ml SUB-Q Not Given TIDWM RAPHAEL Protocol Ketorolac Tromethamine 30 mg 11/23/22 20:06 11/23/22 20:42 Ketorolac 30 Mg/Ml Vial (*Bkc) IV PUSH 30 mg Q6H PRN Administration
--- NOTE | 2022-11-26 10:59 | P.PNIM_ITS ---
Progress Note: A&P Assessment and Plan (1) Acute on chronic pancreatitis: Code(s): K85.90 - Acute pancreatitis without necrosis or infection, unspecified; K86.1 - Other chronic pancreatitis Status: Acute Assessment and Plan: * Presented to the emergency department for evaluation of upper abdominal pain for 4 days prior to 11/19/2022 * History is consistent with acute on chronic pancreatitis * CT of the abdomen and pelvis did not show any acute findings. * Lipase within normal limits * Continue supportive care with bowel rest and IV fluid rehydration. * Analgesics and antiemetics are available as needed. * Continue plasmapheresis for hypertriglyceridemia (2) Dehydration: Code(s): E86.0 - Dehydration Status: Acute Assessment and Plan: * IV fluids at 75 ml/hr * Continue to trend labs (3) Hypertriglyceridemia: Code(s): E78.1 - Pure hyperglyceridemia Status: Chronic Assessment and Plan: * Goal is for triglycerides down below 600 * Consulted Cardiology who recommended resuming her home medications if able to tolerate orally then * consulted Nephrology for plasmapheresis. 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 Normal effort. HEART: NL S1/S2, regular, no murmur ABDOMEN: BS+, soft, tender to light palpation over the epigastrium and left upper quad, no mass, no bruits EXTREMITIES: No cyanosis, edema, or clubbing NEUROLOGIC: CN intact and symmetric to inspection. MUSCULOSKELETAL: Tone and strength symmetric. PSYCH: Alert. Oriented to person, place, and time. Objective Data Vital Signs Vital Signs: Vital Signs - 24 hr 11/25/22 11:15 11/25/22 12:00 11/25/22 12:30 Temperature 97.6 F 97.3 F L 97.3 F L Pulse Rate 69 71 74 Respiratory Rate 18 17 18 Blood Pressure 140/77 126/74 105/77 Pulse Oximetry 93 Oxygen Delivery 11/25/22 12:57 11/25/22 14:57 11/25/22 13:40 Temperature 97.6 F 97.6 F Pulse Rate 77 69 Respiratory Rate 18 16 Blood Pressure 108/81 115/79 Pulse Oximetry 97 92 Oxygen Delivery Room Air 11/25/22 19:55 11/25/22 20:00 11/26/22 06:00 Temperature 97.8 F 98.0 F Pulse Rate 76 76 73 Respiratory Rate 18 18 18 Blood Pressure 136/85 112/68 Pulse Oximetry 98 98 95 Oxygen Delivery
--- NOTE | 2022-11-26 10:59 | PM.IMPN ---
Progress Note: A&P Assessment and Plan (1) Acute on chronic pancreatitis: Code(s): K85.90 - Acute pancreatitis without necrosis or infection, unspecified; K86.1 - Other chronic pancreatitis Status: Acute Assessment and Plan: Presented to the emergency department for evaluation of upper abdominal pain for 4 days prior to 11/19/2022 History is consistent with acute on chronic pancreatitis CT of the abdomen and pelvis did not show any acute findings. Lipase within normal limits Continue supportive care with bowel rest and IV fluid rehydration. Analgesics and antiemetics are available as needed. Continue plasmapheresis for hypertriglyceridemia (2) Dehydration: Code(s): E86.0 - Dehydration Status: Acute Assessment and Plan: IV fluids at 75 ml/hr Continue to trend labs (3) Hypertriglyceridemia: Code(s): E78.1 - Pure hyperglyceridemia Status: Chronic Assessment and Plan: Goal is for triglycerides down below 600 Consulted Cardiology who recommended resuming her home medications if able to tolerate orally then consulted Nephrology for plasmapheresis. 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 Normal effort. HEART: NL S1/S2, regular, no murmur ABDOMEN: BS+, soft, tender to light palpation over the epigastrium and left upper quad, no mass, no bruits EXTREMITIES: No cyanosis, edema, or clubbing NEUROLOGIC: CN intact and symmetric to inspection. MUSCULOSKELETAL: Tone and strength symmetric. PSYCH: Alert. Oriented to person, place, and time. Objective Data Vital Signs Vital Signs: Vital Signs - 24 hr 11/25/22 11:15 11/25/22 12:00 11/25/22 12:30 Temperature 97.6 F 97.3 F L 97.3 F L Pulse Rate 69 71 74 Respiratory Rate 18 17 18 Blood Pressure 140/77 126/74 105/77 Pulse Oximetry 93 Oxygen Delivery 11/25/22 12:57 11/25/22 14:57 11/25/22 13:40 Temperature 97.6 F 97.6 F Pulse Rate 77 69 Respiratory Rate 18 16 Blood Pressure 108/81 115/79 Pulse Oximetry 97 92 Oxygen Delivery Room Air 11/25/22 19:55 11/25/22 20:00 11/26/22 06:00 Temperature 97.8 F 98.0 F Pulse Rate 76 76 73 Respiratory Rate 18 18 18 Blood Pressure 136/85 112/68 Pulse Oximetry 98 98 95 Oxygen Delivery Room Air Intake/Output Intake/Output: Intake & Output 11/23/22 11/24/22 11/25/22 11/26/22 23:59 23:59 23:59 23:59 Intake Total 3815 4590 6740 1450 Output Total 6305 011 9525 Balance 1456 8652 7461 1450 Meds/Results Medications: Active Medications Generic Name Dose Route Start Last Admin Trade Name Freq PRN Reason Stop Dose Admin Bupropion HCl 150 mg 11/25/22 09:00 11/26/22 09:20 Bupropion Hcl Sr (12 Hr) 150 Mg Tab PO 150 mg DAILY RAPHAEL Administration Citalopram Hydrobromide 40 mg 11/25/22 09:00 11/26/22 09:20 Citalopram Hydrobromide 20 Mg Tablet PO 40 mg DAILY RAPHAEL Administration Dextrose 12.5 gm 11/20/22 00:51 Dextrose 50% 25 Gm/50 Ml Syringe IV PUSH PRN PRN Hypoglyce
[2022-11-26] MEDS: polyethylene glycoL 3350 17 GM POWD.PACK PO (12:10)
[2022-11-26 12:13] LABS: Glucose Point of Care 165 mg/dl (65-105)
[2022-11-26 14:25] VITALS: BP 120/61; PULSE 75; RESP 18; TEMP 36.5; O2SAT 95
[2022-11-26 17:27] LABS: Glucose Point of Care 125 mg/dl (65-105)
[2022-11-26 20:21] LABS: Glucose Point of Care 181 mg/dl (65-105)
[2022-11-26 20:36] VITALS: BP 119/62; PULSE 74; RESP 17; TEMP 36.7; O2SAT 99
[2022-11-27] MEDS: HYDROmorphone HCL INJ (*CRX) 1 MG/ML SYR IV PUSH ×6 (03:02→21:57)
[2022-11-27] MEDS: SODIUM CHLORIDE 0.9% IV 1,000 ML 75 ML IV CONT ×2 (03:53→17:45)
[2022-11-27] MEDS: diphenhydrAMINE HCl INJ 50 MG/ML VIAL 25 MG IV PUSH ×2 (05:10→21:58)
[2022-11-27 05:32] LABS: Hematocrit 36.5 % (37.0-47.0); Hemoglobin 11.7 g/dL (12.0-15.0); Mean Corpuscular HGB Conc 32.1 g/dl (32-36); Mean Corpuscular Hemoglobin 29.1 pg (26-34); Mean Corpuscular Volume 90.8 fl (80-100); Mean Platelet Volume 9.6 fl (7.4-10.4); Platelet Count Result 162 k/mm3 (150-375); Red Blood Count 4.02 M/mm3 (4.2-5.4); Red Cell Distribution Width 16.4 % (11.5-14.5); White Blood Count 5.4 K/mm3 (4.5-10.0)
[2022-11-27 05:39] VITALS: BP 100/59; PULSE 73; RESP 17; TEMP 36.8; O2SAT 97
[2022-11-27 05:46] LABS: Anion Gap 1 mmol/L (8-16); Calcium 7.9 mg/dL (8.4-10.2); Carbon Dioxide 30 mmol/L (22-30); Chloride 104 mmol/L (98-107); Estimated CRCL calculation 129 ml/min; Estimated Glomerular Filt Rate > 60; Glucose 136 mg/dL (65-110); Magnesium 1.5 mg/dL (1.6-2.3); Potassium 3.5 mmol/L (3.4-5.0); Sodium 135 mmol/L (137-145); Triglycerides 344 mg/dL (<150)
[2022-11-27 06:03] LABS: Blood Urea Nitrogen < 2 mg/dL (7-17)
[2022-11-27] MEDS: LEVOTHYROXINE SODIUM 100 MCG TABLET 200 MCG PO (06:30)
[2022-11-27 08:22] LABS: Glucose Point of Care 146 mg/dl (65-105)
[2022-11-27 08:46] VITALS: PULSE 74; O2SAT 93
[2022-11-27] MEDS: buPROPion HCL SR (12 HR) 150 MG TAB PO (09:05)
[2022-11-27] MEDS: polyethylene glycoL 3350 17 GM POWD.PACK PO (09:06)
[2022-11-27] MEDS: PANTOPRAZOLE SODIUM IV 40 MG VIAL IV PUSH (09:06)
[2022-11-27] MEDS: CITALOPRAM HYDROBROMIDE 20 MG TABLET 40 MG PO (09:06)
[2022-11-27] MEDS: ROSUVASTATIN 10 MG TABLET 20 MG PO (09:06)
[2022-11-27] MEDS: FENOFIBRATE NANOCRYSTALLIZED 145 MG TABLET PO (09:06)
[2022-11-27] MEDS: KETOROLAC 30 MG/ML VIAL (*BKC) IV PUSH (09:11)
--- NOTE | 2022-11-27 10:34 | P.PNIM_ITS ---
Progress Note: A&P Assessment and Plan (1) Acute on chronic pancreatitis: Code(s): K85.90 - Acute pancreatitis without necrosis or infection, unspecified; K86.1 - Other chronic pancreatitis Status: Acute Assessment and Plan: * Presented to the emergency department for evaluation of upper abdominal pain for 4 days prior to 11/19/2022 * History is consistent with acute on chronic pancreatitis * CT of the abdomen and pelvis did not show any acute findings. * Lipase within normal limits * Continue supportive care with bowel rest and IV fluid rehydration. * Analgesics and antiemetics are available as needed. * Continue plasmapheresis for hypertriglyceridemia -triglycerides are improved. (2) Dehydration: Code(s): E86.0 - Dehydration Status: Acute Assessment and Plan: Monitor. (3) Hypertriglyceridemia: Code(s): E78.1 - Pure hyperglyceridemia Status: Chronic Assessment and Plan: * Goal is for triglycerides down below 600 * Continue statin and fenofibrate (4) Insulin dependent diabetes mellitus: Status: Chronic Assessment and Plan: * Insulin Lispro sliding scale * Accu-checks Ac and HS * Hold oral hypoglycemics * Hypoglycemic precautions * HgbA1c 10.0 (c/w poor control at home, contributing to hypertriglyceridemia) * 11/25/22 She will discuss possible use of po appetite suppressant with her juvenile justice officer as outpatient * 11/25/22 FBS 155 (5) Hypokalemia: Code(s): E87.6 - Hypokalemia Status: Acute Assessment and Plan: * 11/24/22 3.2 and PO KCL ordered * 11/25 3.5, PO KCL ordered Plan Likely discharge in 1-2 days. Advance diet as tolerated today -to a low-fat diet Subjective Date/time seen: 11/27/22 10:34 Interval history: No new complaints. Abdominal pain is somewhat better. Tolerating diet Exam Narrative: HEENT: PERRL, sclerae nonicteric, pharyngeal mucosa pink and intact NECK: No JVD CHEST: Clear to auscultation. Normal effort. HEART: NL S1/S2, regular, no murmur ABDOMEN: BS+, soft, tender to light palpation over the epigastrium and left upper quad, no mass, no bruits EXTREMITIES: No cyanosis, edema, or clubbing NEUROLOGIC: CN intact and symmetric to inspection. MUSCULOSKELETAL: Tone and strength symmetric. PSYCH: Alert. Oriented to person, place, and time. Objective Data Vital Signs Vital Signs: Vital Signs - 24 hr 11/26/22 14:25 11/26/22 20:36 11/27/22 05:39 Temperature 97.7 F 98.1 F 98.3 F Pulse Rate 75 74 73 Respiratory Rate 18 17 17 Blood Pressure 120/61 119/62 100/59 L Pulse Oximetry 95 99 97 Oxygen Delivery 11/27/22 08:46 Temperature Pulse Rate 74 Respiratory Rate Blood Pressure Pulse Oximetry 93 Oxygen Delivery Room Air Intake/Output Intake/Output: Intake & Output 11/24/22 11/25/22 11/26/22 11/27/22 23:59 23:59 23:59 23:59 Intake Total 4590 6740 3640 1120 Output Total 900 4000 2200 300 Balance 3690 2740 1440 820 Meds/Results Medications: Active Medications Generic Name Dose Route Start Last Admin Trade Name Freq PRN Reason Stop Dose Admin Bupropion HCl 150 mg
--- NOTE | 2022-11-27 10:34 | PM.IMPN ---
Progress Note: A&P Assessment and Plan (1) Acute on chronic pancreatitis: Code(s): K85.90 - Acute pancreatitis without necrosis or infection, unspecified; K86.1 - Other chronic pancreatitis Status: Acute Assessment and Plan: Presented to the emergency department for evaluation of upper abdominal pain for 4 days prior to 11/19/2022 History is consistent with acute on chronic pancreatitis CT of the abdomen and pelvis did not show any acute findings. Lipase within normal limits Continue supportive care with bowel rest and IV fluid rehydration. Analgesics and antiemetics are available as needed. Continue plasmapheresis for hypertriglyceridemia -triglycerides are improved. (2) Dehydration: Code(s): E86.0 - Dehydration Status: Acute Assessment and Plan: Monitor. (3) Hypertriglyceridemia: Code(s): E78.1 - Pure hyperglyceridemia Status: Chronic Assessment and Plan: Goal is for triglycerides down below 600 Continue statin and fenofibrate (4) Insulin dependent diabetes mellitus: Status: Chronic Assessment and Plan: Insulin Lispro sliding scale Accu-checks Ac and HS Hold oral hypoglycemics Hypoglycemic precautions HgbA1c 10.0 (c/w poor control at home, contributing to hypertriglyceridemia) 11/25/22 She will discuss possible use of po appetite suppressant with her player development manager as outpatient 11/25/22 FBS 155 (5) Hypokalemia: Code(s): E87.6 - Hypokalemia Status: Acute Assessment and Plan: 11/24/22 3.2 and PO KCL ordered 11/25 3.5, PO KCL ordered Plan Likely discharge in 1-2 days. Advance diet as tolerated today -to a low-fat diet Subjective Date/time seen: 11/27/22 10:34 Interval history: No new complaints. Abdominal pain is somewhat better. Tolerating diet Exam Narrative: HEENT: PERRL, sclerae nonicteric, pharyngeal mucosa pink and intact NECK: No JVD CHEST: Clear to auscultation. Normal effort. HEART: NL S1/S2, regular, no murmur ABDOMEN: BS+, soft, tender to light palpation over the epigastrium and left upper quad, no mass, no bruits EXTREMITIES: No cyanosis, edema, or clubbing NEUROLOGIC: CN intact and symmetric to inspection. MUSCULOSKELETAL: Tone and strength symmetric. PSYCH: Alert. Oriented to person, place, and time. Objective Data Vital Signs Vital Signs: Vital Signs - 24 hr 11/26/22 14:25 11/26/22 20:36 11/27/22 05:39 Temperature 97.7 F 98.1 F 98.3 F Pulse Rate 75 74 73 Respiratory Rate 18 17 17 Blood Pressure 120/61 119/62 100/59 L Pulse Oximetry 95 99 97 Oxygen Delivery 11/27/22 08:46 Temperature Pulse Rate 74 Respiratory Rate Blood Pressure Pulse Oximetry 93 Oxygen Delivery Room Air Intake/Output Intake/Output: Intake & Output 11/24/22 11/25/22 11/26/22 11/27/22 23:59 23:59 23:59 23:59 Intake Total 4590 6740 3640 1120 Output Total 900 4000 2200 300 Balance 3690 2740 1440 820 Meds/Results Medications: Active Medications Generic Name Dose Route Start Last Admin Trade Name Freq PRN Reason Stop Dose Admin Bupropion HCl 150 mg 11/25/22 09:00 11/27/22 09:05 Bupropion Hcl Sr (12 Hr) 150 Mg Tab PO 150 mg DAILY RAPHAEL Administration Citalopram Hydrobromide 40 mg 11/25/22 09:00 11/27/22 09:06 Citalopram Hydrobromide 20 Mg Tablet PO 40 mg DAILY RAPHAEL Administration Dextrose 12.5 gm 11/20/22 00:51 Dextrose 50% 25 Gm/50 Ml Syringe IV PUSH PRN PRN Hypoglycemia Protocol Diphenhydramine HCl 25 mg 11/19/22 21:34 11/27/22 05:10 Diphenhydramine Hcl Inj 50 Mg/Ml Vial IV PUSH 25 mg Q4H PRN Administration Itching Docusate Sodium 100 mg 11/26/22 13:18 Docusate Sodium 100 Mg Capsule PO Q12H PRN Constipation Fenofibrate 145 mg 11/25/22 15:23 11/27/22 09:06 Fenofibrate Nanocrystallized 145 Mg Tablet PO 145 mg DAILY RAPHAEL Administration Glucagon 1 mg 11/20/22 00:51 G
--- NOTE | 2022-11-27 10:45 | PM.PNNEP ---
Progress Note: A&P Assessment and Plan (1) Hypertriglyceridemia: Code(s): E78.1 - Pure hyperglyceridemia Status: Chronic Assessment and Plan: mprovement noted s/p plasmapheresis elevated triglyceride level noted on admission appeared symptomatic with regard to this issue plasmapheresis session on 11/21/22 and on 11/25/22 goal achieved - TG level < 600 hold further plasmapheresis at this time continue ongoing medical therapy back on fenofibrate + statin (2) Acute on chronic pancreatitis: Code(s): K85.90 - Acute pancreatitis without necrosis or infection, unspecified; K86.1 - Other chronic pancreatitis Status: Acute Assessment and Plan: history and exam on admission appears consistent with this CT imaging is negative lipase level okay advance diet as tolerated continue supportive therapy (3) Insulin dependent diabetes mellitus: Status: Chronic Assessment and Plan: poor control at baseline (based on HgbA1c) follow accu-cheks glycemic control per hospitalists Not much else to add -- will continue to follow intermittently. Subjective Date/time seen: 11/27/22 10:45 Interval history: Follow-up for hypertriglyceridemia. Triglyceride levels continue to improve; abdominal pain seems to be getting better as well; no apparent distress voiced at the time of my visit; no issues overnight or earlier this morning. Exam Narrative: General: WD/WN female in NAD Heart: normal S1 and S2; no rub Lungs: clear to auscultation Abdomen: soft, mild TTP; positive bowel sounds Extremities: no cyanosis or clubbing; trace edema Skin: warm and intact Objective Data Vital Signs Vital Signs: Vital Signs Temp Pulse Resp BP Pulse Ox O2 Del Method 11/27/22 08:46 74 93 Room Air 11/27/22 05:39 98.3 F 73 17 100/59 L 97 11/26/22 20:36 98.1 F 74 17 119/62 99 11/26/22 14:25 97.7 F 75 18 120/61 95 Intake/Output Intake/Output: Intake & Output 11/24/22 11/25/22 11/26/22 11/27/22 23:59 23:59 23:59 23:59 Intake Total 4590 6740 3640 1120 Output Total 900 4000 2200 300 Balance 3690 2740 1440 820 Meds/Results Medications: Active Medications Generic Name Dose Route Start Last Admin Trade Name Freq PRN Reason Stop Dose Admin Bupropion HCl 150 mg 11/25/22 09:00 11/27/22 09:05 Bupropion Hcl Sr (12 Hr) 150 Mg Tab PO 150 mg DAILY RAPHAEL Administration Citalopram Hydrobromide 40 mg 11/25/22 09:00 11/27/22 09:06 Citalopram Hydrobromide 20 Mg Tablet PO 40 mg DAILY RAPHAEL Administration Dextrose 12.5 gm 11/20/22 00:51 Dextrose 50% 25 Gm/50 Ml Syringe IV PUSH PRN PRN Hypoglycemia Protocol Diphenhydramine HCl 25 mg 11/19/22 21:34 11/27/22 05:10 Diphenhydramine Hcl Inj 50 Mg/Ml Vial IV PUSH 25 mg Q4H PRN Administration Itching Docusate Sodium 100 mg 11/26/22 13:18 Docusate Sodium 100 Mg Capsule PO Q12H PRN Constipation Fenofibrate 145 mg 11/25/22 15:23 11/27/22 09:06 Fenofibrate Nanocrystallized 145 Mg Tablet PO 145 mg DAILY RAPHAEL Administration Glucagon 1 mg 11/20/22 00:51 Glucagon For Inj 1 Mg Vial IM PRN PRN Hypoglycemia Protocol Glucose 15 gm 11/20/22 00:51 Glucose Oral Gel 15 Gm Of Glucse In 37.5 Gm Tube PO PRN PRN Hypoglycemia Protocol Hydromorphone HCl 1 mg 11/24/22 15:12 11/27/22 12:39 Hydromorphone Hcl Inj (*Crx) 1 Mg/Ml Syr IV PUSH 1 mg Q2H PRN Administration Pain Rated 7-10 Sodium Chloride 1,000 mls @ 75 mls/hr 11/19/22 19:10 11/27/22 03:53 Normal Saline Iv IV CONT 75 mls/hr .[id number] RAPHAEL Administration Dextrose 1,000 mls @ 100 mls/hr 11/20/22 00:51 Dextrose 5% 1,000 Ml IVPB PRN PRN Hypoglycemia Protocol Insulin Aspart 3 - 6 units 11/23/22 08:00 11/27/22 12:38 Insulin Aspart (*Bkc) 100 Units/Ml SUB-Q Not Given TIDWM RAPHAEL Pr
--- NOTE | 2022-11-27 11:04 | PCNWS ---
Weekly nutritional screen. Patient is tolerating current diet with adequate intake. No weight loss reported. No nutritional needs at this time.
[2022-11-27 12:20] LABS: Glucose Point of Care 157 mg/dl (65-105)
[2022-11-27 14:00] VITALS: BP 132/73; PULSE 85; RESP 18; TEMP 36.6; O2SAT 99
[2022-11-27] MEDS: ONDANSETRON INJ 4 MG/2 ML VIAL IV PUSH (16:06)
[2022-11-27 17:25] LABS: Glucose Point of Care 183 mg/dl (65-105)
[2022-11-27 21:21] VITALS: O2SAT 98
[2022-11-27 22:00] VITALS: BP 110/51; PULSE 77; RESP 20; TEMP 36.3; O2SAT 98
[2022-11-28] MEDS: HYDROmorphone HCL INJ (*CRX) 1 MG/ML SYR IV PUSH ×2 (01:06→05:23)
[2022-11-28] MEDS: LEVOTHYROXINE SODIUM 100 MCG TABLET 200 MCG PO (05:24)
[2022-11-28 05:45] LABS: Triglycerides 414 mg/dL (<150)
[2022-11-28 06:00] VITALS: BP 127/71; PULSE 72; RESP 18; TEMP 36.1; O2SAT 97
[2022-11-28] MEDS: SODIUM CHLORIDE 0.9% IV 1,000 ML 75 ML IV CONT (06:31)
[2022-11-28 07:30] LABS: Glucose Point of Care 171 mg/dl (65-105)
[2022-11-28 07:41] LABS: Glucose Point of Care 172 mg/dl (65-105)
--- NOTE | 2022-11-28 08:54 | PM.DS ---
DS: Admitting Diagnosis Discharge Date 11/28/22 Admitting Diagnosis Abdominal pain DS: Discharge Diagnosis Discharge Diagnosis (1) Acute on chronic pancreatitis: Code(s): K85.90 - Acute pancreatitis without necrosis or infection, unspecified; K86.1 - Other chronic pancreatitis Status: Acute (2) Dehydration: Code(s): E86.0 - Dehydration Status: Acute (3) Hypertriglyceridemia: Code(s): E78.1 - Pure hyperglyceridemia Status: Chronic (4) Insulin dependent diabetes mellitus: Status: Chronic (5) Hypokalemia: Code(s): E87.6 - Hypokalemia Status: Acute DS: Summary Hospital Course Reason for hospitalization: 46-year-old female with history of chronic pancreatitis 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 Hospital Course: The patient presented to the emergency for evaluation abdominal pain. Patient's lipase was normal. Triglyceride level was greater than 2625. CT of the abdomen pelvis showed no acute abnormalities. Pancreas had normal appearance. Chest x-ray was clear. UA noted. Urine culture and blood cultures were negative. Cardiology was consulted recommended continuing medications for her hypertriglyceridemia. Nephrology consulted and patient underwent plasmapheresis on 11/21/2022 and 11/25/2022. Lipase remained normal. Triglyceride levels trended down to less than 600 and at the time of discharge was 414. Potassium was low at times and this was replaced. Her A1c was 10. Glucose was well controlled due to her decreased oral intake initially but glucose did climbed as expected when her diet was resumed and advanced. She had clinical improvement. She still having some abdominal pain that seemed to be slightly worse with eating. Patient overall did well. Showed clinical improvement. She was to be discharged home on 11/28/2022. Status at Discharge Cognitive/behavioral status at discharge: Stable Time Spent with Patient Time attestation: Total time spent providing and/or coordinating discharge services: 35 minutes Exam Narrative: AF 97.0 127/71 72 18 97% ra Gen - NARD Chest - CTA bilaterally, nml RR CV - RRR S1/S2 Abd - mild epigastric pain. no guarding or rebound Ext - No pedal edema Psych - Nml mood and affect Skin - Warm and dry DS: Data Data Completed and Pending Labs on day of discharge: Labs from last 24 hours 11/28/22 11/28/22 11/27/22 07:25 05:19 19:56 POC Capillary Glucose 171 H 172 H Triglycerides 414 H 11/27/22 11/27/22 17:22 12:15 POC Capillary Glucose 183 H 157 H Triglycerides Discharge Plan Discharge Attending physician on discharge: Francisco Donald Consulting providers: Orquidea Santoro; Eli Kaminski Discharging Clinician: Francisco Donald Anticipated Discharge Date/Time: 11/28/22 09:07 Patient Disposition: Home, Self-Care Activity: as tolerated Diet: heart healthy and low fat Discharge Instructions: Please check glucose before meals and before bed. Record and bring into your doctor for review. You received narcotics today. Please do not drive or drink alcohol today. Contact your doctor or call 911 and come to the Emergency Room if you have worsening abdominal pain or other worrisome symptoms. Your Trazodone was held while you were hospitalized. Please resume Trazodone at half the dose (100mg) tonight and advance to full dose (200mg) in 4-5 days. Follow-up with your primary care provider in 1-2 weeks. Please call for appointment. Follow-up with the Specialist that is caring for you for your high triglyceride levels as soon as an appointment can be arranged. Thank you for using [facility] for your health care needs. Patient Instructions: Antibiotic Form, How to Stop Smoking (DC) Stand Alone Forms: General Discharg
[2022-11-28] MEDS: polyethylene glycoL 3350 17 GM POWD.PACK PO (09:05)
[2022-11-28] MEDS: FENOFIBRATE NANOCRYSTALLIZED 145 MG TABLET PO (09:05)
[2022-11-28] MEDS: CITALOPRAM HYDROBROMIDE 20 MG TABLET 40 MG PO (09:05)
[2022-11-28] MEDS: buPROPion HCL SR (12 HR) 150 MG TAB PO (09:05)
[2022-11-28] MEDS: ROSUVASTATIN 10 MG TABLET 20 MG PO (09:05)
[2022-11-28] MEDS: PANTOPRAZOLE SODIUM IV 40 MG VIAL IV PUSH (09:05)
[2022-11-28] MEDS: HYDROcodone/acetaminophen (*CRX) 5-325 MG TABLET 1 TAB PO (09:15)
[2022-11-28 12:06] LABS: Glucose Point of Care 226 mg/dl (65-105)
[2022-11-28] MEDS: INSULIN ASPART (*BKC) 100 UNITS/ML SUB-Q (13:27)
[2022-11-28 13:44] LABS: Glucose Point of Care 234 mg/dl (65-105)
== END 2022-11-28 14:50 | disposition home or self-care (01) | DRG 642 ==
LOC: ANHED 19:44 → ANH3MEDSUR 20:07 → ANH2MED 20:30
PROVIDERS: Emergency Medicine; Internal Medicine; Internal Medicine Critical Care Medicine; Internal Medicine Nephrology; Nurse Practitioner; Physician Assistant; Admitting Provider Internal Medicine; Emergency Provider Nurse Practitioner Family; PCP Internal Medicine; Visit Provider Internal Medicine
DX: E78.3 Hyperchylomicronemia (principal); K85.90 Acute pancreatitis without necrosis or infection, unspecified; K86.1 Other chronic pancreatitis; E78.1 Pure hyperglyceridemia; E87.6 Hypokalemia; E11.9 Type 2 diabetes mellitus without complications; E78.5 Hyperlipidemia, unspecified; E86.0 Dehydration; E63.8 Other specified nutritional deficiencies; F17.210 Nicotine dependence, cigarettes, uncomplicated; F41.9 Anxiety disorder, unspecified; Z79.4 Long term (current) use of insulin; Z79.85 Long-term (current) use of injectable non-insulin antidiabetic drugs
CPT/HCPCS: 36415; 36514; 71045; 74177; 80048; 80053; 81001; 82948; 83036; 83605; 83690; 83735; 84478; 85025; 85027; 87040; 87086; 87088; 96361; 96365; 96375; 96376; 99285; A9270; C9113; G0378; J0613; J0696; J1170; J1200; J1644; J1815; J1885; J1940; J2405; J3475; J3480; J7030; J7040; P9045; Q9967

== ENCOUNTER 2022-12-02 18:03 | Inpatient (IN) | payer MEDICARE, SELFPAY ==
[2022-12-02] VITALS (18 sets, daily range): BP systolic 119–157; BP diastolic 75–97; PULSE 71–87; RESP 6–18; TEMP 36.1–36.6; O2SAT 93–100; BMI 31.0
--- NOTE | ~2022-12-02 | CT_ITS ---
CT of the Abdomen and Pelvis: Indication: Abdominal pain Technique: 2.5 mm axial scans were obtained through the abdomen and pelvis following intravenous adm inistration of 100 cc of Omnipaque 350. Dose reduction technique was used on this scan by utilizing a utomated exposure control and iterative reconstruction technique. The dose-length product (DLP) was 7 47.60 mGy-cm. COMPARISON: 11/19/2022 Findings: Scans through the lung bases are unremarkable. The liver, spleen, pancreas, gallbladder, adrenals and kidneys are within normal limits. There are at herosclerotic calcifications of the aorta. No lymphadenopathy. No bowel obstruction or bowel wall thickening. There is no evidence to suggest acute appendicitis. Images through the pelvis were performed. Urinary bladder unremarkable. Patient is post hysterectomy. 2.8 cm right ovarian cyst present. Trace pelvic free fluid noted. Impression: 2.8 cm right ovarian cyst with trace free fluid in the pelvis. No other significant findings. Reviewed, dictated and finalized at location . Impression: 2.8 cm right ovarian cyst with trace free fluid in the pelvis. No other significant findings.
--- NOTE | ~2022-12-02 | XR_ITS ---
EXAMINATION: XR fl Dobhoff insert/rad w img DATE: 12/07/2022 12:55 INDICATION: Acute pancreatitis. TECHNIQUE: I placed a nasoenteric tube under fluoroscopic guidance. The number of images was 2. The fluoroscopy exposure time was 1.1 minutes. COMPARISON: CT abdomen and pelvis 12/02/2022 FINDINGS: The nasoenteric tube tip is in the third portion of the duodenum. IMPRESSION: 1. Fluoroscopy guided nasoenteric tube placement with tip in the third portion of the duodenum. Reviewed, dictated and finalized at location A.
--- NOTE | ~2022-12-02 | US_ITS ---
EXAMINATION: US abdomen limited DATE: 12/06/2022 19:56 INDICATION: vomiting TECHNIQUE: Multiple grayscale and Doppler ultrasound images of limited portions of the abdomen were o btained. COMPARISON: CT abdomen and pelvis 12/02/2022. FINDINGS: Somewhat heterogeneous echogenicity of the pancreatic tail. The liver is enlarged with incr eased echogenicity and normal echotexture. No surface nodularity. Normal hepatopetal flow in the main portal vein. The gallbladder is normal with no abnormal wall thickening, pericholecystic fluid or st ones. The common bile duct measures 3 mm. There was no sonographic Olivo sign. Right kidney measures 16.0 x 4.5 x 5.5 cm, with the appearance of a duplicated collecting system, but this was not evident in the prior CT. Mild right pelviectasis. IMPRESSION: Heterogeneous pancreatic tail echogenicity, may represent edema from pancreatitis. Correlate with a p ancreatic labs. Echogenic liver, most commonly due to steatosis but also can be seen with hepatitis and fibrosis. Mild right pelviectasis. Reviewed, dictated and finalized at location K. IMPRESSION: Heterogeneous pancreatic tail echogenicity, may represent edema from pancreatit is. Correlate with a pancreatic labs. Echogenic liver, most commonly due to steatosis but also can be seen with hepat itis and fibrosis. Mild right pelviectasis.
--- NOTE | ~2022-12-02 | XR_ITS ---
Portable chest x-ray Comparison: 11/20/2022 Clinical History: Epigastric pain Findings: Bilateral central venous lines are unchanged. Lungs are clear, without focal consolidation or pleural effusion. Cardiomediastinal silhouette is stable. Bones and soft tissues are unremarkabl e. Impression: Clear lungs. Stable bilateral central venous lines. Reviewed, dictated and finalized at location . Impression: Clear lungs. Stable bilateral central venous lines.
[2022-12-02 18:37] LABS: Basophils Percent Auto 0.5 % (0.2-1.2); Eosinophils Absolute Auto 0.2 K/mm3 (0-0.3); Eosinophils Percent Auto 1.7 % (0-4.4); Hematocrit 43.3 % (37.0-47.0); Hemoglobin 14.5 g/dL (12.0-15.0); Immature Granulocyte Absolute 0.04 K/mm3 (0.00-0.031); Immature Granulocyte Percent A 0.5 % (0-0.5); Lymphocytes Absolute Auto 2.23 K/mm3 (0.9-3.2); Lymphocytes Percent Auto 25.4 % (18.3-44.2); Mean Corpuscular HGB Conc 33.5 g/dl (32-36); Mean Corpuscular Hemoglobin 29.5 pg (26-34); Mean Platelet Volume 9.4 fl (7.4-10.4); Monocytes Absolute Auto 0.6 K/mm3 (0.1-0.6); Monocytes Percent Auto 6.6 % (2.6-8.5); Neutrophils Absolute Auto 5.7 K/mm3 (1.3-6.7); Neutrophils Percent Auto 65.3 % (45.5-73.1); Platelet Count Result 258 k/mm3 (150-375); Red Blood Count 4.92 M/mm3 (4.2-5.4); Red Cell Distribution Width 15.4 % (11.5-14.5); White Blood Count 8.8 K/mm3 (4.5-10.0)
[2022-12-02] MEDS: ONDANSETRON INJ 4 MG/2 ML VIAL IV PUSH ×2 (18:40→22:48)
[2022-12-02 18:49] LABS: Alanine Aminotransferase 25 U/L (6-35); Albumin Level 5.1 g/dL (3.5-5.1); Alkaline Phosphatase 55 U/L (38-126); Anion Gap 12 mmol/L (8-16); Aspartate Amino Transferase 23 U/L (14-36); Bilirubin,Total 0.9 mg/dL (0.2-1.3); Blood Urea Nitrogen 10 mg/dL (7-17); Calcium 9.3 mg/dL (8.4-10.2); Carbon Dioxide 28 mmol/L (22-30); Chloride 98 mmol/L (98-107); Estimated CRCL calculation 124 ml/min; Estimated Glomerular Filt Rate > 60; Glucose 184 mg/dL (65-110); Lipase 81 U/L (23-300); Potassium 3.2 mmol/L (3.4-5.0); Sodium 138 mmol/L (137-145)
--- NOTE | 2022-12-02 18:51 | ECG_ITS ---
Measurements Intervals [place] Rate: 85 P: 46 [place]: 172 QRS: 44 QRSD: 87 T: -5 QT: 361 QTc: 431 Interpretive Statements SINUS RHYTHM NONSPECIFIC T-WAVE ABNORMALITY ABNORMAL ECG COMPARED TO ECG 07/04/2022 00:49:16 NO SIGNIFICANT CHANGES Electronically Signed On 12-03-2022 10:23:19 CDT by Darío Stock M.D.
[2022-12-02] MEDS: SODIUM CHLORIDE 0.9% IV 1,000 ML 999 ML IV CONT ×3 (19:05→22:06)
[2022-12-02] MEDS: MORPHINE SULFATE (*CRX) 4 MG/ML INJ IV PUSH (19:05)
--- NOTE | 2022-12-02 19:06 | ED.NAVMDI ---
HPI - Nausea/Vomiting/Diarrhea General Chief complaint: Nausea/Vomiting/Diarrhea <DARI Orozco Last Filed: 12/03/22 01:37> Stated complaint: Unable to keep food down <DARI Orozco Last Filed: 12/03/22 01:37> Time Seen by Provider: 12/02/22 18:28 <DARI Orozco Last Filed: 12/03/22 01:37> History of Present Illness HPI Narrative: 47-year-old female with a history of chylomicronemia syndrome, pancreatitis, insulin-dependent diabetes, hypertriglyceridemia, hypokalemia reports for evaluation for epigastric and left upper quadrant abdominal pain, nausea, vomiting and diarrhea x3 days. Patient was recently admitted on 11/19 and discharged on 11/28 for acute on chronic pancreatitis. Her triglyceride level was greater than [address] time [address] abdomen pelvis showed no acute abnormalities. Patient underwent plasmapheresis on 11/21 and 11/25 and began showing clinical improvement, therefore was discharged home on 11/28. Patient state she was feeling better on the day of discharge, however the following days when her symptoms began to worsen again. She reports decreased p.o. intake and has been unable to take her medications secondary to nausea and vomiting. She reports 3 episodes of emesis daily and multiple episodes of nonmelanotic diarrhea daily. She denies fever, chest pain or shortness of breath, urinary complaints. <Vinita Hayward PA-C - Last Filed: 12/03/22 01:37> Related Data Home medications: Home Medications Medication Instructions Recorded Confirmed trazodone 100 mg tablet 200 mg PO HS 07/04/22 12/02/22 insulin degludec 200 unit/mL (3 36 unit subcut QAM 11/19/22 12/02/22 mL) subcutaneous pen (Tresiba FlexTouch U-200 insulin) polyethylene glycol 3350 17 g PO DAILY 12/02/22 12/02/22 <DARI Orozco Last Filed: 12/03/22 01:37> Allergies/Adverse reactions: Allergies Allergy/AdvReac Type Severity Reaction Status Date / Time adhesive tape Allergy Mild Rash Verified 11/20/22 07:27 [place] pepper [green pepper] Allergy Unknown unknown Verified 11/20/22 07:27 <Vinita Hayward PA-C - Last Filed: 12/03/22 01:37> Review of Systems Review of Systems: CONSTITUTIONAL: Denies fever, chills EYES: Denies visual changes, redness, or discharge. ENT: Denies rhinorrhea, congestion, sore throat, or otalgia. CARDIOVASCULAR: Denies chest pain, palpitations, or edema. RESPIRATORY: Denies cough or dyspnea. GASTROINTESTINAL: See HPI GENITOURINARY: Denies dysuria or hematuria. SKIN: Denies rash or itching. MUSCULOSKELETAL: Denies back pain, joint pain, or myalgia. NEUROLOGIC: Denies headache, numbness, dizziness, or weakness. PSYCHIATRIC: Denies anxiety or depression. <Vinita Hayward PA-C - Last Filed: 12/03/22 01:37> [facility] Past Medical History Medical History: Medical History (Updated 12/02/22 @ 22:11 by Brynn Remy DO) Allergic rhinitis Anxiety Chronic pancreatitis Chylomicronemia syndrome Headache Hyperlipemia Hypertriglyceridemia Insulin dependent diabetes mellitus Lipoprotein deficiency Port-A-Cath in place Thyroid disorder <Vinita Hayward PA-C - Last Filed: 12/03/22 01:37> Surgical History Surgical History: Surgical History History of appendectomy History of conization of cervix History of dilatation and curettage History of endometrial ablation History of exploratory laparotomy History of loop electrical excision procedure (LEEP) History of partial hysterectomy History of tonsillectomy History of tubal ligation History of wisdom tooth extraction <Vinita Hayward PA-C - Last Filed: 12/03/22 01:37> Family History Family History: Family History Father Alcohol abuse Hypertension Mother Hypothyroid Cerebrovascular accident Grandparent Skin cancer Colon cancer Heart disease Hy
[2022-12-02] MEDS: KCL 20 MEQ/SW 100 ML 100 ML 50 MEQ IVPB (19:31)
[2022-12-02 19:44] LABS: Lactic Acid Reflex 1.1 mmol/L (0.7-2.0)
[2022-12-02 20:04] LABS: Triglycerides 512 mg/dL (<150)
[2022-12-02] MEDS: HYDROmorphone HCL INJ (*CRX) 1 MG/ML SYR IV PUSH ×2 (20:44→22:47)
[2022-12-02 21:28] LABS: Appearance Urine Clear (Clear); Bacteria Urine 1+ /hpf; Bilirubin Urine Negative (Negative); Blood Urine Negative (Negative); Color Urine Yellow (Yellow); Glucose Urine UA Negative (Negative); Ketones Urine 1+ mg/dL (Negative); Leukocyte Esterase Ur Negative LEU/UL (Negative); Nitrate Urine Negative (Negative); Non Pathogenic Casts 0-2; Protein Urine Trace mg/dL (Negative); RBC Urine 0-2 /hpf (0-2); Squamous Epithelial Cell Urine Few /hpf (Few); WBC Urine 0-5 /hpf
[2022-12-02 21:32] LABS: Specific Grav Ur 1.083 (1.001-1.035)
[2022-12-02 21:33] LABS: Add Urine Microscopic? YES
--- NOTE | 2022-12-02 22:02 | PM.IMHP ---
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 The patient was hospitalized 11/20/2022 through 11/28/2022 for the exact same symptoms due to recurrent acute on chronic pancreatitis. The patient required plasmapheresis due to triglycerides greater than 2500. During her last hospitalization she also had an A1c checked which confirmed uncontrolled diabetes. Her A1c was 10. Patient was discharged home and began having symptoms the day after discharge. She has not been taking her insulin or any of her other home medication since discharge. She reports that she had not had a bowel movement since she was admitted the hospital at 24. She had been taking MiraLax during her last hospitalization and had continued at home. Over the last couple days she has been having some loose watery stools. She reports her usual epigastric abdominal pain that occurs when she has her bouts of pancreatitis. But she has also developed in pain down her lateral left abdomen and some pain over her right lower abdomen. CT did demonstrate an ovarian cyst. She does have a history of PCOS as well. She and her primary care physician were worried that she may have constipation or bowel obstruction. But CT scan did not demonstrate any evidence of this. In fact CT scan did not demonstrate much in the form of stool in her colon at the time of my review. She reports that she usually is able to urinate about 800 mL per void. But over the last several days she feels as if she can only voids small amounts and she still has a sensation of incomplete emptying. The she denies sensation of early satiety. She has not been having any hematochezia, melena hematemesis or coffee-ground emesis. She reports that she has not been able to keep anything down since she returned home. She she denies any fevers or chills. Review of Systems Review of Systems: 12 systems were reviewed with pertinent positives and negatives per HPI. Except as documented in the HPI, all other systems were reviewed and are negative. 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buse Hypertension Mother Hypothyroid Cerebrovascular accident Grandparent Skin cancer Colon cancer Heart disease Hypothyroid Cerebrovascular accident Sibling Hypothyroid Kidney disorder Hypertension Autoimmune disorder Social History Social History (Updated 12/04/22 @ 04:14 by Brynn Remy DO) Social History: Surrogate medical decision maker: José Miguel Jones, spouse. Code status: She does not have advanced directives in place. But she states she would want to be a DNR/DNI. She would be fine with pressors or central line. Smoking packs per day: 1 Smoking cigarett
[2022-12-02 22:06] LABS: Glucose Point of Care 181 mg/dl (65-105)
--- NOTE | 2022-12-02 22:42 | PC.NURSE ---
patient transferred to floor with IV fluids infusing per order.
--- NOTE | 2022-12-02 22:44 | PC.NURSE ---
This patient, Casandra Jones, was admitted to [facility] Surg Room 311-01. Patient/family oriented to hospital policies and general routines including ID bracelet, bed and alarms, visiting hours, pain management, procedures, bathroom and other care routines, personal items, smoking policy, room service/diet, and visiting hours. Information on how to activate the Rapid Response Team has been discussed. Patient/Family are encouraged to report perceived risks to care and to ask questions if they do not understand what they are told or what they should do.
[2022-12-02] MEDS: SODIUM CHLORIDE 0.9% IV 1,000 ML 150 ML IV CONT (22:48)
[2022-12-03] MEDS: ONDANSETRON INJ 4 MG/2 ML VIAL IV PUSH ×4 (02:23→21:23)
[2022-12-03] MEDS: HYDROmorphone HCL INJ (*CRX) 1 MG/ML SYR IV PUSH ×3 (02:23→20:36)
[2022-12-03] MEDS: KETOROLAC 15 MG/ML VIAL (*BKC) IV PUSH ×4 (05:02→23:03)
[2022-12-03] MEDS: METOCLOPRAMIDE HCL INJ 10 MG/2 ML VIAL IV PUSH ×4 (05:02→23:03)
[2022-12-03 05:53] VITALS: BP 127/72; PULSE 71; RESP 16; TEMP 36.2; O2SAT 98
[2022-12-03] MEDS: LEVOTHYROXINE SODIUM INJ 100 MCG/5 ML VIAL IV PUSH (06:30)
[2022-12-03] MEDS: SODIUM CHLORIDE 0.9% IV 1,000 ML 150 ML IV CONT ×3 (07:21→23:03)
[2022-12-03 07:46] LABS: Glucose Point of Care 161 mg/dl (65-105)
[2022-12-03] MEDS: PANTOPRAZOLE SODIUM IV 40 MG VIAL IV PUSH ×2 (08:44→16:20)
[2022-12-03] MEDS: buPROPion HCL SR (12 HR) 150 MG TAB PO (08:44)
[2022-12-03] MEDS: FENOFIBRATE NANOCRYSTALLIZED 145 MG TABLET PO (08:44)
[2022-12-03] MEDS: CITALOPRAM HYDROBROMIDE 20 MG TABLET 40 MG PO (08:44)
[2022-12-03] MEDS: ROSUVASTATIN 20 MG TABLET PO (08:44)
[2022-12-03 09:02] LABS: Hematocrit 35.4 % (37.0-47.0); Hemoglobin 11.4 g/dL (12.0-15.0); Mean Corpuscular HGB Conc 32.2 g/dl (32-36); Mean Corpuscular Hemoglobin 29.4 pg (26-34); Mean Corpuscular Volume 91.2 fl (80-100); Mean Platelet Volume 8.8 fl (7.4-10.4); Platelet Count Result 195 k/mm3 (150-375); Red Blood Count 3.88 M/mm3 (4.2-5.4); Red Cell Distribution Width 15.7 % (11.5-14.5); White Blood Count 6.7 K/mm3 (4.5-10.0)
[2022-12-03 09:14] LABS: Alanine Aminotransferase 17 U/L (6-35); Albumin Level 3.4 g/dL (3.5-5.1); Alkaline Phosphatase 33 U/L (38-126); Anion Gap 2 mmol/L (8-16); Aspartate Amino Transferase 17 U/L (14-36); Bilirubin,Total 0.4 mg/dL (0.2-1.3); Blood Urea Nitrogen 4 mg/dL (7-17); Calcium 7.1 mg/dL (8.4-10.2); Carbon Dioxide 27 mmol/L (22-30); Chloride 104 mmol/L (98-107); Estimated CRCL calculation 125 ml/min; Estimated Glomerular Filt Rate > 60; Glucose 156 mg/dL (65-110); Potassium 3.1 mmol/L (3.4-5.0); Sodium 133 mmol/L (137-145)
[2022-12-03 09:43] LABS: Triglycerides 451 mg/dL (<150)
[2022-12-03 10:32] LABS: Glucose Point of Care 177 mg/dl (65-105)
[2022-12-03 10:59] LABS: Magnesium 1.3 mg/dL (1.6-2.3)
--- NOTE | 2022-12-03 11:04 | PM.IMPN ---
Progress Note: A&P Assessment and Plan (1) Acute on chronic pancreatitis: Code(s): K85.90 - Acute pancreatitis without necrosis or infection, unspecified; K86.1 - Other chronic pancreatitis Status: Acute Assessment and Plan: Control nausea vomiting, pain control, IV fluids, advance diet as tolerated from clear liquids. 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 Consult Nephrology (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 Status: Acute Assessment and Plan: Nephrology consult for possible continued plasmapheresis (4) Insulin dependent diabetes mellitus: Status: Chronic Assessment and Plan: Accu-Cheks with basal and corrective insulin, on Tresiba, will use Lantus (5) Hypokalemia: Code(s): E87.6 - Hypokalemia Status: Acute Assessment and Plan: IV replacement due to continue nausea vomiting (6) Hypomagnesemia: Code(s): E83.42 - Hypomagnesemia Status: Acute Assessment and Plan: IV replacement due to continue nausea vomiting (7) GERD (gastroesophageal reflux disease): Qualifiers: Esophagitis presence: esophagitis presence not specified Qualified Code(s): K21.9 - Gastro-esophageal reflux disease without esophagitis Code(s): K21.9 - Gastro-esophageal reflux disease without esophagitis Status: Acute Assessment and Plan: PPI ordered (8) Dehydration: Code(s): E86.0 - Dehydration Status: Acute Assessment and Plan: IV fluid resuscitation in the ER and continue fluids until tolerating full diet. Time Spent With Patient Time with patient: 25 - 35 minutes Subjective Date/time seen: 12/03/22 11:04 Interval history: 12/03: This is a 47-year-old female patient with history of genetic hypertriglyceridemia and recurrent acute on chronic pancreatitis who returns to the hospital 1 day post discharge. She states that she was not able to tolerate any food or fluids orally home. She also reports that she has had diarrhea but no solid stools for weeks. Patient had plasmapheresis on last hospitalization for high triglycerides. Will consult Nephrology again. Review of Systems Review of Systems: All systems reviewed & are unremarkable except as noted in HPI and below Exam Narrative: GENERAL: Patient appears uncomfortable, laying in bed left lateral recumbent HEAD: Normocephalic EYES: PERRLA ENT: Nares clear. Mucous membranes moist. Oropharynx without tonsillar hypertrophy exudate or other lesions. NECK: Supple. CHEST: No respiratory distress. Clear to auscultation, no adventitious breath sounds. HEART: Regular rate and rhythm. No murmur heard. Normal peripheral pulses. ABDOMEN: Hypoactive bowel sounds. Abdomen soft with tenderness in the right lower quadrant, right upper quadrant, epigastrium and left upper quadrant with associated guarding. No rebound or rigidity. EXTREMITIES: Normal range of motion. No edema. SKIN: Warm, dry, no rash. NEURO: No focal deficits. Alert and oriented x3. PSYCH: Normal mood and affect. Objective Data Vital Signs Vital Signs: Vital Signs - 24 hr 12/02/22 18:06 12/02/22 18:34 12/02/22 18:45 Temperature 36.6 C Pulse Rate 87 85 84 Respiratory Rate 17 9 L 13 Blood Pressure 147/79 H Pulse Oximetry 99 97 100 Oxygen Delivery Room Air 12/02/22 19:00 12/02/22 19:33 12/02/22 19:34 Temperature Pulse Rate 80 81 78 Respiratory Rate 10 L 12 6 L Blood Pressure 157/80 H Pulse Oximetry 93 97 96 Oxygen Delivery 12/02/22 19:52 12/02/22 20:00 12/02/22 20:01 Temperature Pulse Rate 74 71 78 Respiratory Rate 7 L 6 L 8 L Blood Pressure 149/97 H Pulse Oximetry 97 98 94 Oxygen Delivery 12/02/22 20:31 12/02/22 21:45 12/02/22 21:46 Temperature Pulse Rate
[2022-12-03] MEDS: MAGNESIUM SULF 4 GM/WATER100ML 4 GM/100 ML BAG IVPB (11:20)
[2022-12-03] MEDS: POTASSIUM CHLORIDE INJ 40 MEQ in SODIUM CHLORIDE 0.9% IV 500 ML 130 MEQ IVPB (11:23)
[2022-12-03 11:29] LABS: Glucose Point of Care 169 mg/dl (65-105)
[2022-12-03 14:00] VITALS: BP 116/77; PULSE 77; RESP 16; TEMP 36; O2SAT 98
[2022-12-03 16:27] LABS: Glucose Point of Care 144 mg/dl (65-105)
[2022-12-03 17:56] LABS: Anion Gap 3 mmol/L (8-16); Blood Urea Nitrogen 3 mg/dL (7-17); Carbon Dioxide 24 mmol/L (22-30); Chloride 104 mmol/L (98-107); Estimated CRCL calculation 152 ml/min; Estimated Glomerular Filt Rate > 60; Glucose 136 mg/dL (65-110); Magnesium 2.6 mg/dL (1.6-2.3); Potassium 3.5 mmol/L (3.4-5.0); Sodium 131 mmol/L (137-145)
[2022-12-03] MEDS: INSULIN GLARGINE (*BKC) 100 UNITS/ML 40 UNITS SUB-Q (21:24)
[2022-12-03] MEDS: traZODone HCL 50 MG TABLET 200 MG PO (21:26)
[2022-12-03 21:33] LABS: Glucose Point of Care 188 mg/dl (65-105)
[2022-12-03 21:40] VITALS: BP 124/65; PULSE 72; RESP 16; TEMP 36.7; O2SAT 98
[2022-12-04] MEDS: PANTOPRAZOLE SODIUM IV 40 MG VIAL IV PUSH ×2 (01:41→15:22)
[2022-12-04] MEDS: HYDROmorphone HCL INJ (*CRX) 1 MG/ML SYR IV PUSH ×4 (03:30→20:01)
[2022-12-04] MEDS: SODIUM CHLORIDE 0.9% IV 1,000 ML 150 ML IV CONT (05:38)
[2022-12-04] MEDS: KETOROLAC 15 MG/ML VIAL (*BKC) IV PUSH ×4 (05:38→23:56)
[2022-12-04] MEDS: LEVOTHYROXINE SODIUM INJ 100 MCG/5 ML VIAL IV PUSH (05:39)
[2022-12-04] MEDS: METOCLOPRAMIDE HCL INJ 10 MG/2 ML VIAL IV PUSH ×4 (05:39→21:04)
[2022-12-04 06:00] VITALS: BP 109/49; PULSE 66; RESP 16; TEMP 36.6; O2SAT 96
[2022-12-04 07:28] LABS: Hematocrit 32.5 % (37.0-47.0); Hemoglobin 10.3 g/dL (12.0-15.0); Mean Corpuscular HGB Conc 31.7 g/dl (32-36); Mean Corpuscular Hemoglobin 29.1 pg (26-34); Mean Corpuscular Volume 91.8 fl (80-100); Mean Platelet Volume 9.4 fl (7.4-10.4); Platelet Count Result 176 k/mm3 (150-375); Red Blood Count 3.54 M/mm3 (4.2-5.4); Red Cell Distribution Width 15.5 % (11.5-14.5); White Blood Count 5.2 K/mm3 (4.5-10.0)
[2022-12-04 07:36] LABS: Alanine Aminotransferase 16 U/L (6-35); Albumin Level 3.1 g/dL (3.5-5.1); Alkaline Phosphatase 36 U/L (38-126); Anion Gap 4 mmol/L (8-16); Aspartate Amino Transferase 19 U/L (14-36); Bilirubin,Total 0.2 mg/dL (0.2-1.3); Blood Urea Nitrogen 3 mg/dL (7-17); Calcium 6.7 mg/dL (8.4-10.2); Carbon Dioxide 26 mmol/L (22-30); Chloride 107 mmol/L (98-107); Estimated CRCL calculation 125 ml/min; Estimated Glomerular Filt Rate > 60; Glucose 114 mg/dL (65-110); Potassium 3.2 mmol/L (3.4-5.0); Sodium 137 mmol/L (137-145); Triglycerides 326 mg/dL (<150)
[2022-12-04 07:44] LABS: Glucose Point of Care 110 mg/dl (65-105)
[2022-12-04] MEDS: FENOFIBRATE NANOCRYSTALLIZED 145 MG TABLET PO (08:21)
[2022-12-04] MEDS: ROSUVASTATIN 20 MG TABLET PO (08:21)
[2022-12-04] MEDS: buPROPion HCL SR (12 HR) 150 MG TAB PO (08:21)
[2022-12-04] MEDS: CITALOPRAM HYDROBROMIDE 20 MG TABLET 40 MG PO (08:21)
[2022-12-04 08:30] VITALS: PULSE 78; O2SAT 99
[2022-12-04] MEDS: POTASSIUM CHLORIDE INJ 40 MEQ in SODIUM CHLORIDE 0.9% IV 500 ML 130 MEQ IVPB (08:30)
[2022-12-04] MEDS: ONDANSETRON INJ 4 MG/2 ML VIAL IV PUSH ×2 (08:37→20:01)
--- NOTE | 2022-12-04 09:03 | PM.IMPN ---
Progress Note: A&P Assessment and Plan (1) Acute on chronic pancreatitis: Code(s): K85.90 - Acute pancreatitis without necrosis or infection, unspecified; K86.1 - Other chronic pancreatitis Status: Acute Assessment and Plan: Control nausea vomiting, pain control, IV fluids, advance diet as tolerated from clear liquids. 12/04: Patient still only taking small amounts of clear liquids. Discussed that we would need to consider feeding tube if unable to maintain sufficient caloric intake orally. Will defer this decision for a couple of days. 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 Consult to Nephrology canceled as patient's triglycerides are lower than threshold for plasmapheresis. (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 Status: Acute Assessment and Plan: Nephrology consult for possible continued plasmapheresis (4) Insulin dependent diabetes mellitus: Status: Chronic Assessment and Plan: Accu-Cheks with basal and corrective insulin, on Tresiba, will use Lantus (5) Hypokalemia: Code(s): E87.6 - Hypokalemia Status: Acute Assessment and Plan: IV replacement due to continue nausea vomiting 12/04: Continues to be low ordered IV and oral replacement (6) Hypomagnesemia: Code(s): E83.42 - Hypomagnesemia Status: Acute Assessment and Plan: IV replacement due to continue nausea vomiting 12/04: Improved with IV replacement yesterday. (7) GERD (gastroesophageal reflux disease): Qualifiers: Esophagitis presence: esophagitis presence not specified Qualified Code(s): K21.9 - Gastro-esophageal reflux disease without esophagitis Code(s): K21.9 - Gastro-esophageal reflux disease without esophagitis Status: Acute Assessment and Plan: PPI ordered (8) Dehydration: Code(s): E86.0 - Dehydration Status: Acute Assessment and Plan: IV fluid resuscitation in the ER and continue fluids until tolerating full diet. Plan Pain and nausea medicine as needed. Attempt to advanced diet. Consider surgical consult for feeding tube placement if not able to maintain caloric needs with oral intake in a few days Time Spent With Patient Time with patient: 25 - 35 minutes Subjective Date/time seen: 12/04/22 09:03 Interval history: 12/03: This is a 47-year-old female patient with history of genetic hypertriglyceridemia and recurrent acute on chronic pancreatitis who returns to the hospital 1 day post discharge. She states that she was not able to tolerate any food or fluids orally home. She also reports that she has had diarrhea but no solid stools for weeks. Patient had plasmapheresis on last hospitalization for high triglycerides. 12/04: Triglycerides are lower and patient does not he had plasmapheresis. She still has significant left upper quadrant abdominal pain and nausea with eating or drinking. Potassium still low despite treatment. Magnesium improved. Patient states that she is not feeling well today not feeling like she can handle increasing her diet. Discussed that if she cannot have oral intake soon we would need to discuss with surgery on placement of feeding tube or TPN. Review of Systems Review of Systems: All systems reviewed & are unremarkable except as noted in HPI and below Exam Narrative: GENERAL: Patient appears uncomfortable, laying in bed left lateral recumbent HEAD: Normocephalic EYES: PERRLA ENT: Nares clear. Mucous membranes moist. NECK: Supple. CHEST: No respiratory distress. Clear to auscultation, no adventitious breath sounds. HEART: Regular rate and rhythm. No murmur heard. Normal peripheral pulses. ABDOMEN: Hypoactive bowel sounds. Abdomen soft with tenderness primarily in the left upper quadrant and epigastric r
[2022-12-04 11:25] LABS: Glucose Point of Care 168 mg/dl (65-105)
[2022-12-04] MEDS: POTASSIUM CHLORIDE 20 MEQ ER TABLET 40 MEQ PO (12:03)
[2022-12-04 14:00] VITALS: BP 129/77; PULSE 72; RESP 14; TEMP 37; O2SAT 97
[2022-12-04] MEDS: SODIUM CHLORIDE 0.9% IV 1,000 ML 100 ML IV CONT (15:05)
[2022-12-04] MEDS: diphenhydrAMINE HCl CAP 25 MG CAPSULE 50 MG PO (15:23)
[2022-12-04 16:46] LABS: Glucose Point of Care 83 mg/dl (65-105)
[2022-12-04] MEDS: INSULIN GLARGINE (*BKC) 100 UNITS/ML 40 UNITS SUB-Q (21:03)
[2022-12-04] MEDS: traZODone HCL 50 MG TABLET 200 MG PO (21:04)
[2022-12-04 21:38] VITALS: BP 134/74; PULSE 73; RESP 18; TEMP 36.9; O2SAT 98
[2022-12-04 21:51] LABS: Glucose Point of Care 153 mg/dl (65-105)
[2022-12-05] MEDS: PANTOPRAZOLE SODIUM IV 40 MG VIAL IV PUSH ×2 (01:08→16:05)
[2022-12-05] MEDS: SODIUM CHLORIDE 0.9% IV 1,000 ML 100 ML IV CONT ×3 (01:08→20:06)
[2022-12-05] MEDS: HYDROmorphone HCL INJ (*CRX) 1 MG/ML SYR IV PUSH ×5 (02:47→21:20)
[2022-12-05] MEDS: KETOROLAC 15 MG/ML VIAL (*BKC) IV PUSH ×3 (05:34→17:34)
[2022-12-05] MEDS: METOCLOPRAMIDE HCL INJ 10 MG/2 ML VIAL IV PUSH ×4 (05:34→21:19)
[2022-12-05] MEDS: LEVOTHYROXINE SODIUM INJ 100 MCG/5 ML VIAL IV PUSH (05:34)
[2022-12-05 06:00] VITALS: BP 113/55; PULSE 65; RESP 16; TEMP 36.6; O2SAT 97
[2022-12-05 06:10] LABS: Glucose Point of Care 79 mg/dl (65-105)
[2022-12-05 06:31] LABS: Hematocrit 32.8 % (37.0-47.0); Hemoglobin 10.6 g/dL (12.0-15.0); Mean Corpuscular HGB Conc 32.3 g/dl (32-36); Mean Corpuscular Hemoglobin 29.2 pg (26-34); Mean Corpuscular Volume 90.4 fl (80-100); Mean Platelet Volume 9.3 fl (7.4-10.4); Platelet Count Result 192 k/mm3 (150-375); Red Blood Count 3.63 M/mm3 (4.2-5.4); Red Cell Distribution Width 15.4 % (11.5-14.5); White Blood Count 5.5 K/mm3 (4.5-10.0)
[2022-12-05 06:50] LABS: Alanine Aminotransferase 15 U/L (6-35); Albumin Level 3.1 g/dL (3.5-5.1); Alkaline Phosphatase 33 U/L (38-126); Anion Gap 1 mmol/L (8-16); Aspartate Amino Transferase 21 U/L (14-36); Bilirubin,Total 0.3 mg/dL (0.2-1.3); Calcium 7.5 mg/dL (8.4-10.2); Carbon Dioxide 28 mmol/L (22-30); Chloride 106 mmol/L (98-107); Estimated CRCL calculation 125 ml/min; Estimated Glomerular Filt Rate > 60; Glucose 77 mg/dL (65-110); Magnesium 1.9 mg/dL (1.6-2.3); Potassium 3.3 mmol/L (3.4-5.0); Sodium 135 mmol/L (137-145); Triglycerides 183 mg/dL (<150)
[2022-12-05 07:20] LABS: Blood Urea Nitrogen < 2 mg/dL (7-17)
[2022-12-05 07:44] LABS: Glucose Point of Care 65 mg/dl (65-105)
[2022-12-05] MEDS: ONDANSETRON INJ 4 MG/2 ML VIAL IV PUSH ×3 (07:50→17:38)
[2022-12-05 08:12] LABS: Glucose Point of Care 78 mg/dl (65-105)
--- NOTE | 2022-12-05 08:15 | PC.NURSE ---
Pt had a blood glucose of 67. While RN was going to get glucose gel stated in the hypoglycemic orders PCT gave the patient two apple juices. After consuming both apple juice containers patients blood glucose was 78. RN called physician to clarify that there was no need to proceed with the hypoglycemia orders since it had been resolved above hypoglycemia parameters.
[2022-12-05] MEDS: FENOFIBRATE NANOCRYSTALLIZED 145 MG TABLET PO (09:17)
[2022-12-05] MEDS: buPROPion HCL SR (12 HR) 150 MG TAB PO (09:17)
[2022-12-05] MEDS: POTASSIUM CHLORIDE 20 MEQ ER TABLET 40 MEQ PO ×2 (09:17→16:06)
[2022-12-05] MEDS: CITALOPRAM HYDROBROMIDE 20 MG TABLET 40 MG PO (09:17)
[2022-12-05] MEDS: ROSUVASTATIN 20 MG TABLET PO (09:17)
[2022-12-05 11:25] LABS: Glucose Point of Care 153 mg/dl (65-105)
--- NOTE | 2022-12-05 11:41 | PM.IMPN ---
Progress Note: A&P Assessment and Plan (1) Acute on chronic pancreatitis: Code(s): K85.90 - Acute pancreatitis without necrosis or infection, unspecified; K86.1 - Other chronic pancreatitis Status: Acute Assessment and Plan: Control nausea vomiting, pain control, IV fluids, advance diet as tolerated from clear liquids. 12/04: Patient still only taking small amounts of clear liquids. Discussed that we would need to consider feeding tube if unable to maintain sufficient caloric intake orally. Will defer this decision for a couple of days. 12/05: patient is advancing her diet and is tolerating small amounts of actual food. Consult dietitian. 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 Consult to Nephrology canceled as patient's triglycerides are lower than threshold for plasmapheresis. 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 (4) Insulin dependent diabetes mellitus: Status: Chronic Assessment and Plan: Accu-Cheks with basal and corrective insulin, on Tresiba, will use Lantus 12/05: Patient mildly hypoglycemic this morning they came up with juice and food. Will decrease Lantus dose as patient is taking in less oral intake (5) Hypokalemia: Code(s): E87.6 - Hypokalemia Status: Acute Assessment and Plan: IV replacement due to continue nausea vomiting 12/04: Continues to be low ordered IV and oral replacement 12/05: improving mildly. Ordered p.o. replacement. (6) Hypomagnesemia: Code(s): E83.42 - Hypomagnesemia Status: Acute Assessment and Plan: IV replacement due to continue nausea vomiting 12/04: Improved with IV replacement yesterday. 12/05: Normal reading this morning continue checking daily labs (7) GERD (gastroesophageal reflux disease): Qualifiers: Esophagitis presence: esophagitis presence not specified Qualified Code(s): K21.9 - Gastro-esophageal reflux disease without esophagitis Code(s): K21.9 - Gastro-esophageal reflux disease without esophagitis Status: Acute Assessment and Plan: PPI ordered (8) Dehydration: Code(s): E86.0 - Dehydration Status: Acute Assessment and Plan: IV fluid resuscitation in the ER and continue fluids until tolerating full diet. Plan Pain and nausea medicine as needed. Attempt to advanced diet. dietary consult Replace electrolytes as needed encourage patient to increase oral intake frequently in small amounts Time Spent With Patient Time with patient: 25 - 35 minutes Subjective Date/time seen: 12/05/22 11:41 Interval history: 12/03: This is a 47-year-old female patient with history of genetic hypertriglyceridemia and recurrent acute on chronic pancreatitis who returns to the hospital 1 day post discharge. She states that she was not able to tolerate any food or fluids orally home. She also reports that she has had diarrhea but no solid stools for weeks. Patient had plasmapheresis on last hospitalization for high triglycerides. 12/04: Triglycerides are lower and patient does not he had plasmapheresis. She still has significant left upper quadrant abdominal pain and nausea with eating or drinking. Potassium still low despite treatment. Magnesium improved. Patient states that she is not feeling well today not feeling like she can handle increasing her diet. Discussed that if she cannot have oral intake soon we would need to discuss with surgery on placement of feeding tube or TPN. 12/05: patient feeling a little better still having consistent pain with eating and unable to taking a whole lot due to nausea. Triglycerides are lower. Potassium still a little low but improving slightly
[2022-12-05] MEDS: diphenhydrAMINE HCl CAP 25 MG CAPSULE 50 MG PO ×2 (12:29→21:25)
[2022-12-05 14:00] VITALS: BP 131/66; PULSE 73; RESP 16; TEMP 36.2; O2SAT 97
[2022-12-05 15:51] VITALS: BMI 31.0
[2022-12-05 16:48] LABS: Glucose Point of Care 64 mg/dl (65-105)
[2022-12-05 17:30] LABS: Glucose Point of Care 103 mg/dl (65-105)
[2022-12-05 21:11] LABS: Glucose Point of Care 142 mg/dl (65-105)
[2022-12-05] MEDS: traZODone HCL 50 MG TABLET 200 MG PO (21:20)
[2022-12-05] MEDS: INSULIN GLARGINE (*BKC) 100 UNITS/ML 20 UNITS SUB-Q (21:20)
[2022-12-05 22:00] VITALS: BP 125/73; PULSE 76; RESP 16; TEMP 36.6; O2SAT 98
[2022-12-06] MEDS: KETOROLAC 15 MG/ML VIAL (*BKC) IV PUSH ×4 (00:05→17:30)
[2022-12-06] MEDS: HYDROmorphone HCL INJ (*CRX) 1 MG/ML SYR IV PUSH ×5 (01:15→20:54)
[2022-12-06] MEDS: PANTOPRAZOLE SODIUM IV 40 MG VIAL IV PUSH ×2 (01:15→13:32)
[2022-12-06] MEDS: SODIUM CHLORIDE 0.9% IV 1,000 ML 100 ML IV CONT (05:48)
[2022-12-06] MEDS: METOCLOPRAMIDE HCL INJ 10 MG/2 ML VIAL IV PUSH ×4 (05:50→20:57)
[2022-12-06] MEDS: LEVOTHYROXINE SODIUM INJ 100 MCG/5 ML VIAL IV PUSH (05:50)
[2022-12-06 06:00] VITALS: BP 140/75; PULSE 69; RESP 14; TEMP 36.8; O2SAT 98
[2022-12-06 06:15] LABS: Hematocrit 35.5 % (37.0-47.0); Hemoglobin 11.3 g/dL (12.0-15.0); Mean Corpuscular HGB Conc 31.8 g/dl (32-36); Mean Corpuscular Hemoglobin 28.7 pg (26-34); Mean Corpuscular Volume 90.1 fl (80-100); Mean Platelet Volume 9.1 fl (7.4-10.4); Platelet Count Result 236 k/mm3 (150-375); Red Blood Count 3.94 M/mm3 (4.2-5.4); Red Cell Distribution Width 15.6 % (11.5-14.5)
[2022-12-06 06:33] LABS: Alanine Aminotransferase 16 U/L (6-35); Albumin Level 3.5 g/dL (3.5-5.1); Alkaline Phosphatase 39 U/L (38-126); Anion Gap -1 mmol/L (8-16); Aspartate Amino Transferase 22 U/L (14-36); Bilirubin,Total 0.3 mg/dL (0.2-1.3); Calcium 8.2 mg/dL (8.4-10.2); Carbon Dioxide 32 mmol/L (22-30); Chloride 104 mmol/L (98-107); Estimated CRCL calculation 106 ml/min; Estimated Glomerular Filt Rate > 60; Glucose 81 mg/dL (65-110); Magnesium 1.7 mg/dL (1.6-2.3); Potassium 3.6 mmol/L (3.4-5.0); Sodium 135 mmol/L (137-145); Triglycerides 150 mg/dL (<150)
[2022-12-06 06:36] LABS: Blood Urea Nitrogen < 2 mg/dL (7-17)
[2022-12-06] MEDS: FENOFIBRATE NANOCRYSTALLIZED 145 MG TABLET PO (08:13)
[2022-12-06] MEDS: buPROPion HCL SR (12 HR) 150 MG TAB PO (08:13)
[2022-12-06] MEDS: ROSUVASTATIN 20 MG TABLET PO (08:13)
[2022-12-06] MEDS: CITALOPRAM HYDROBROMIDE 20 MG TABLET 40 MG PO (08:13)
[2022-12-06 08:15] LABS: Glucose Point of Care 77 mg/dl (65-105)
[2022-12-06] MEDS: POTASSIUM CHLORIDE 20 MEQ ER TABLET 40 MEQ PO ×2 (08:15→16:43)
--- NOTE | 2022-12-06 10:09 | PM.IMPN ---
Progress Note: A&P Assessment and Plan (1) Acute on chronic pancreatitis: Code(s): K85.90 - Acute pancreatitis without necrosis or infection, unspecified; K86.1 - Other chronic pancreatitis Status: Acute Assessment and Plan: Control nausea vomiting, pain control, IV fluids, advance diet as tolerated from clear liquids. 12/04: Patient still only taking small amounts of clear liquids. Discussed that we would need to consider feeding tube if unable to maintain sufficient caloric intake orally. Will defer this decision for a couple of days. 12/05: patient is advancing her diet and is tolerating small amounts of actual food. Consult dietitian. 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 Ordered stool elastase and consulted GI. Appreciate any recommendations. 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 Consult to Nephrology canceled as patient's triglycerides are lower than threshold for plasmapheresis. 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 (4) Insulin dependent diabetes mellitus: Status: Chronic Assessment and Plan: Accu-Cheks with basal and corrective insulin, on Tresiba, will use Lantus 12/05: Patient mildly hypoglycemic this morning they came up with juice and food. Will decrease Lantus dose as patient is taking in less oral intake 12/06: blood sugars reviewed (5) Hypokalemia: Code(s): E87.6 - Hypokalemia Status: Acute Assessment and Plan: IV replacement due to continue nausea vomiting 12/04: Continues to be low ordered IV and oral replacement 12/05: improving mildly. Ordered p.o. replacement. 12/06: improving with oral supplementation (6) Hypomagnesemia: Code(s): E83.42 - Hypomagnesemia Status: Acute Assessment and Plan: IV replacement due to continue nausea vomiting 12/04: Improved with IV replacement yesterday. 12/05: Normal reading this morning continue checking daily labs 12/06: Stable, 1.7 today (7) GERD (gastroesophageal reflux disease): Qualifiers: Esophagitis presence: esophagitis presence not specified Qualified Code(s): K21.9 - Gastro-esophageal reflux disease without esophagitis Code(s): K21.9 - Gastro-esophageal reflux disease without esophagitis Status: Acute Assessment and Plan: PPI ordered (8) Dehydration: Code(s): E86.0 - Dehydration Status: Acute Assessment and Plan: IV fluid resuscitation in the ER and continue fluids until tolerating full diet. Plan GI consult at recommendation of Government Gauger. Appreciate GI expertise and recommendations. Stool pancreatic elastase ordered. Stool softener for constipation per patient request Time Spent With Patient Time with patient: 25 - 35 minutes Subjective Date/time seen: 12/06/22 10:09 Interval history: 12/03: This is a 47-year-old female patient with history of genetic hypertriglyceridemia and recurrent acute on chronic pancreatitis who returns to the hospital 1 day post discharge. She states that she was not able to tolerate any food or fluids orally home. She also reports that she has had diarrhea but no solid stools for weeks. Patient had plasmapheresis on last hospitalization for high triglycerides. 12/04: Triglycerides are lower and patient does not he had plasmapheresis. She still has significant left upper quadrant abdominal pain and nausea with eating or drinking. Potassium still low despite treatment. Magnesium improved. Patient states that she is not feeling well today not feeling like she can handle increasing her diet. Discussed that if she cannot have oral intake soon we would need to discuss
[2022-12-06 11:39] LABS: Glucose Point of Care 176 mg/dl (65-105)
--- NOTE | 2022-12-06 13:59 | WPDGICN ---
Assessment and Plan Assessment and plan (1) Nausea & vomiting: Code(s): R11.2 - Nausea with vomiting, unspecified Status: Acute Assessment and Plan: Patient with protracted nausea vomiting. Presumed to be related to pancreatitis on the basis of hypertriglyceridemia. CT scan imaging fails to confirm pancreatitis. In the past her episodes have improved after resolution elevated triglycerides. This appears to be persisting at present. Plan for EGD to assess more thoroughly. Stool for fecal elastase will be obtained. Gallbladder ultrasound will be obtained. After EGD is accomplished we may wish to consider Dobbhoff tube with placement the tube distal to the ampulla of Vater. Further recommendations may be given after endoscopy. We may wish to consider follow-up at a tertiary care center for endoscopic ultrasound of the pancreas as well. 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 HPI: Casandra Jones is a 47 year old female I am asked to see because of protracted nausea vomiting. Patient known to me from previous admissions. She has episodes of recurring nausea vomiting and abdominal pain. She suffers with hyper triglyceridemia. Her recur current episode of vomit in in abdominal pain appear to be related to elevated triglyceride levels. it has been presumed this related to pancreatitis. Patient has had evaluation in [facility] and even [facility]. Most recent imaging studies revealed the pancreas to look normal. Patient denies any fever. She has had no travel. No one else in the family is ill. Elevated triglycerides have failed to improve with oral medications. Patient admitted over the last 2 weeks and was treated with plasmapheresis to decrease her triglyceride. Her vomiting has persisted. Review of Systems Review of Systems: Review of systems noncontributory. 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buse Hypertension Mother Hypothyroid Cerebrovascular accident Grandparent Skin cancer Colon cancer Heart disease Hypothyroid Cerebrovascular accident Sibling Hypothyroid Kidney disorder Hypertension Autoimmune disorder Social History Social History (Updated 12/04/22 @ 04:14 by Brynn Remy DO) Social History: Surrogate medical decision maker: José Miguel Jones, spouse. Code status: She does not have advanced directives in place. But she states she would want to be a DNR/DNI. She would be fine with pressors or central line. Smoking packs per day: 1 Smoking cigarettes per day: 20.0 Years smoked: 30 Smoking pack-years: 30.00 Smoking status: Current ashley
[2022-12-06 14:00] VITALS: BP 140/81; PULSE 68; RESP 20; TEMP 36.6; O2SAT 97
--- NOTE | 2022-12-06 14:34 | PC.NURSE ---
Stool specimen accidentally marked as collected. Specimen not collected yet, will collect when a specimen is provided. Passed on info to ancillary nursing staff.
[2022-12-06] MEDS: LACTATED RINGERS 1,000 ML 100 ML IV CONT (14:56)
[2022-12-06] MEDS: traMADol HCL (*CRX) 50 MG TABLET 100 MG PO (15:22)
[2022-12-06 16:31] LABS: Glucose Point of Care 157 mg/dl (65-105)
[2022-12-06 20:55] VITALS: O2SAT 97
[2022-12-06] MEDS: traZODone HCL 50 MG TABLET 200 MG PO (20:57)
[2022-12-06 21:18] LABS: Glucose Point of Care 158 mg/dl (65-105)
[2022-12-06] MEDS: ONDANSETRON INJ 4 MG/2 ML VIAL IV PUSH (21:48)
[2022-12-06] MEDS: SENNA/DOCUSATE SODIUM TABLET 1 TAB PO (21:48)
[2022-12-06 21:55] VITALS: BP 123/72; PULSE 79; RESP 18; TEMP 36.7; O2SAT 98
[2022-12-07] MEDS: KETOROLAC 15 MG/ML VIAL (*BKC) IV PUSH ×3 (00:03→17:19)
[2022-12-07] MEDS: LACTATED RINGERS 1,000 ML 100 ML IV CONT ×2 (02:26→17:20)
[2022-12-07] MEDS: PANTOPRAZOLE SODIUM IV 40 MG VIAL IV PUSH ×2 (02:27→13:10)
[2022-12-07] MEDS: HYDROmorphone HCL INJ (*CRX) 1 MG/ML SYR IV PUSH ×5 (03:45→22:31)
[2022-12-07 06:00] VITALS: BP 122/74; PULSE 65; RESP 16; TEMP 36.1; O2SAT 95
[2022-12-07 06:09] LABS: Alanine Aminotransferase 18 U/L (6-35); Albumin Level 3.7 g/dL (3.5-5.1); Alkaline Phosphatase 41 U/L (38-126); Anion Gap 5 mmol/L (8-16); Aspartate Amino Transferase 23 U/L (14-36); Bilirubin,Total 0.5 mg/dL (0.2-1.3); Blood Urea Nitrogen 6 mg/dL (7-17); Calcium 8.4 mg/dL (8.4-10.2); Carbon Dioxide 30 mmol/L (22-30); Chloride 100 mmol/L (98-107); Estimated CRCL calculation 106 ml/min; Estimated Glomerular Filt Rate > 60; Glucose 129 mg/dL (65-110); Magnesium 1.6 mg/dL (1.6-2.3); Potassium 3.9 mmol/L (3.4-5.0); Sodium 135 mmol/L (137-145); Triglycerides 168 mg/dL (<150)
[2022-12-07 06:15] LABS: Hematocrit 36.2 % (37.0-47.0); Hemoglobin 11.7 g/dL (12.0-15.0); Mean Corpuscular HGB Conc 32.3 g/dl (32-36); Mean Corpuscular Hemoglobin 29.1 pg (26-34); Mean Platelet Volume 9.5 fl (7.4-10.4); Platelet Count Result 246 k/mm3 (150-375); Red Blood Count 4.02 M/mm3 (4.2-5.4); Red Cell Distribution Width 15.2 % (11.5-14.5); White Blood Count 6.2 K/mm3 (4.5-10.0)
[2022-12-07] MEDS: LEVOTHYROXINE SODIUM INJ 100 MCG/5 ML VIAL IV PUSH (06:36)
[2022-12-07] MEDS: METOCLOPRAMIDE HCL INJ 10 MG/2 ML VIAL IV PUSH ×4 (06:36→20:26)
[2022-12-07] MEDS: SENNA/DOCUSATE SODIUM TABLET 1 TAB PO ×2 (07:52→20:22)
[2022-12-07] MEDS: buPROPion HCL SR (12 HR) 150 MG TAB PO (07:52)
[2022-12-07] MEDS: CITALOPRAM HYDROBROMIDE 20 MG TABLET 40 MG PO (07:52)
[2022-12-07] MEDS: FENOFIBRATE NANOCRYSTALLIZED 145 MG TABLET PO (07:52)
[2022-12-07] MEDS: ROSUVASTATIN 20 MG TABLET PO (07:52)
[2022-12-07 07:55] LABS: Glucose Point of Care 100 mg/dl (65-105)
--- NOTE | 2022-12-07 09:48 | PCNFU ---
Addendum entered by Katia Lara, ARMAND, LDN 12/07/22 13:16: Tube feeding recommendations: Jevity 1.2 @ 50 ml/h with flushes 100 ml q 4 hours. Total 1320 kcal, 61 g protein, 1488 ml total free water Original Note: Nutrition Follow-Up Complete: Inadequate oral intakes related to nausea,vomiting, diarrhea, abdominal pain at least 6 weeks as evidenced by patient report Tolerate PO diet- Progressing Meet nutritional needs - progressing Goal: Pt current nutrition is NPO today for EGD. Yesterday intakes improved to 75% b, 75% L, 50% D. Nutrition recommendation: If needed, recommend TPN or PPN over tube feeding because of intractable nausea. Pt may not need nutrition support as the intakes yesterday improved greatly. If needed: TPN Clinmix 5/15E WITHOUT LIPIDS @ 60 ml/h for 1022 kcal and 72 g protein/day. Last recorded weight is 84.7 kg. Bowel Motility: No BM recorded Labs Reviewed: Hgb 11.7, Hct 36.2, Na 135, BUN 6, Cre 0.6, Glu 129, TRIG 168 Meds Noted: Reglan Skin: WNL Additional Notes: ?exocrine pancreatic insufficiency based on nausea, vomiting, diarrhea, abdominal pain, diabetes. Triglycerides improved to 193 today. EGD today. Pt complains of nausea, but not vomiting. TPN or PPN would likely be a better choice than tube feeding because of nausea. Please call dietitian if further recommendations needed. Following every 3 days
[2022-12-07] MEDS: LACTATED RINGERS 1,000 ML 150 ML IV CONT (10:50)
[2022-12-07 10:51] LABS: Glucose Point of Care 98 mg/dl (65-105)
--- NOTE | 2022-12-07 11:12 | WPDANESEPPF ---
Anes - Initial Pre Proc Eval Procedure: Operation Date: 12/07/22 14:30 Proposed Procedures p Esophagogastroduodenoscopy - Malcom Jones MD Date/Time: 12/07/22 11:12 Surgeon: Brynn Remy DO Pre Op Diagnosis: Acute on Chronic Pancreatitis Patient Data Age: 47 Gender: F Height: 1.65 m Weight: 84.7 kg Last Vital Signs Temp 96.9 F L 12/07/22 06:00 Pulse 65 12/07/22 06:00 Resp 16 12/07/22 06:00 BP 122/74 12/07/22 06:00 Pulse Ox 95 12/07/22 06:00 O2 Del Method Room Air 12/07/22 08:00 Allergies Allergy/AdvReac Type Severity Reaction Status Date / Time adhesive tape Allergy Mild Rash Verified 12/07/22 10:40 [place] pepper [green pepper] Allergy Unknown unknown Verified 12/07/22 10:40 Home Medications Medication Instructions Recorded Confirmed Type bupropion HCl 150 mg tablet,12 hr 150 mg PO DAILY #90 tabs 10/26/21 12/07/22 Rx sustained-release trazodone 100 mg tablet 200 mg PO HS 07/04/22 12/07/22 History citalopram 40 mg tablet 40 mg PO DAILY #90 tabs 07/24/22 12/07/22 Rx empagliflozin 25 mg tablet 25 mg PO DAILY #90 tabs 07/24/22 12/07/22 Rx (Jardiance) fenofibrate nanocrystallized 145 145 mg PO DAILY #90 tabs 07/24/22 12/07/22 Rx mg tablet insulin aspart U-100 100 unit/mL 1 sliding scale dose subcut TID 07/24/22 12/07/22 Rx (3 mL) subcutaneous pen (Novolog #15 mL FlexPen U-100 Insulin aspart) levothyroxine 200 mcg tablet 200 mcg PO DAILY #90 tabs 07/24/22 12/07/22 Rx pantoprazole 40 mg tablet,delayed 40 mg PO QAM #90 tabs 07/24/22 12/07/22 Rx release rosuvastatin 20 mg tablet 20 mg PO DAILY #90 tabs 07/24/22 12/07/22 Rx metformin 500 mg tablet 1,000 mg PO BID #180 tabs 10/19/22 12/07/22 Rx insulin degludec 200 unit/mL (3 36 unit subcut QAM 11/19/22 12/07/22 History mL) subcutaneous pen (Tresiba FlexTouch U-200 insulin) polyethylene glycol 3350 17 gram 17 g PO QAM #30 ea 11/28/22 12/07/22 Rx oral powder packet (Miralax) polyethylene glycol 3350 17 g PO DAILY 12/02/22 12/07/22 History Laboratory Tests 12/06/22 12/06/22 12/06/22 11:32 16:23 20:20 WBC RBC Hgb Hct MCV MCH MCHC RDW Plt Count MPV Sodium Potassium Chloride Carbon Dioxide Anion Gap BUN Creatinine Estim Creat Clear Calc Estimated GFR Glucose POC Capillary Glucose 176 H mg/dl 157 H mg/dl 158 H mg/dl (65-105) (65-105) (65-105) Calcium Magnesium Total Bilirubin AST ALT Alkaline Phosphatase Total Protein Albumin Triglycerides 12/07/22 12/07/22 12/07/22 05:18 07:50 10:48 WBC 6.2 K/mm3 (4.5-10.0) RBC 4.02 L M/mm3 (4.2-5.4) Hgb 11.7 L g/dL (12.0-15.0) Hct 36.2 L % (37.0-47.0) MCV 90.0 fl (80-100) MCH 29.1 pg (26-34) MCHC 32.3 g/dl (32-36) RDW 15.2 H % (11.5-14.5) Plt Count 246 k/mm3 (150-375) MPV 9.5 fl (7.4-10.4) Sodium 135 L mmol/L (137-145) Potassium 3.9 mmol/L (3.4-5.0) Chloride 100 mmol/L (98-107) Carbon Dioxide 30 mmol/L (22-30) Anion Gap 5 L mmol/L (8-16) BUN 6 L mg/dL (7-17) Creatinine 0.60 L mg/dL (0.7-1.0) Estim Creat Clear Calc 106 ml/min Estimated GFR > 60 (59 - ) Glucose 129 H mg/dL (65-110) POC Capillary Glucose 100 mg/dl 98 mg/dl (65-105) (65-105) Calcium 8.4 mg/dL (8.4-10.2) Magnesium 1.6 mg/dL (1.6-2.3) Total Bilirubin 0.5 mg/dL (0.2-1.3) AST 23 U/L (14-36) ALT 18 U/L (6-35) Alkaline Phospha
[2022-12-07 11:44] VITALS: BP 127/84; PULSE 70; RESP 17; O2SAT 96
[2022-12-07 11:54] VITALS: BP 127/81; PULSE 71; RESP 14; O2SAT 95
[2022-12-07 12:04] VITALS: BP 128/80; PULSE 64; RESP 16; O2SAT 96
[2022-12-07] MEDS: traMADol HCL (*CRX) 50 MG TABLET PO (13:17)
--- NOTE | 2022-12-07 13:20 | PCDIET ---
Tube feeding recommendations: Jevity 1.2 @ 50 ml/h (lowest fat formula): 1320 kcal, 61 g protein, 888 ml total water. Flush 100 ml q 4 hours: Total water 1488 ml/day. Recommend starting at 20 ml/h and advance by 10 ml q 12 hours to promote tolerance because of nausea.
--- NOTE | 2022-12-07 13:50 | PM.IMPN ---
Progress Note: A&P Assessment and Plan (1) Acute on chronic pancreatitis: Code(s): K85.90 - Acute pancreatitis without necrosis or infection, unspecified; K86.1 - Other chronic pancreatitis Status: Acute Assessment and Plan: Control nausea vomiting, pain control, IV fluids, advance diet as tolerated from clear liquids. 12/04: Patient still only taking small amounts of clear liquids. Discussed that we would need to consider feeding tube if unable to maintain sufficient caloric intake orally. Will defer this decision for a couple of days. 12/05: patient is advancing her diet and is tolerating small amounts of actual food. Consult dietitian. 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 Ordered stool elastase and consulted GI. Appreciate any recommendations. 12/07: Ultrasound of the abdomen showed inflammation of the tail of the pancreas. Incidentally large kidney noted. GI took patient for EGD which was reported normal mucosa and Dobbhoff feeding tube placed under fluoroscopy located in the 3rd portion of the duodenum. 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 Consult to Nephrology canceled as patient's triglycerides are lower than threshold for plasmapheresis. 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 (4) Insulin dependent diabetes mellitus: Status: Chronic Assessment and Plan: Accu-Cheks with basal and corrective insulin, on Tresiba, will use Lantus 12/05: Patient mildly hypoglycemic this morning they came up with juice and food. Will decrease Lantus dose as patient is taking in less oral intake 12/06: blood sugars reviewed, patient NPO, evening Lantus held 12/07 blood sugars reviewed, resume Lantus (5) Hypokalemia: Code(s): E87.6 - Hypokalemia Status: Acute Assessment and Plan: IV replacement due to continue nausea vomiting 12/04: Continues to be low ordered IV and oral replacement 12/05: improving mildly. Ordered p.o. replacement. 12/06: improving with oral supplementation 12/07: Stable (6) Hypomagnesemia: Code(s): E83.42 - Hypomagnesemia Status: Acute Assessment and Plan: IV replacement due to continue nausea vomiting 12/04: Improved with IV replacement yesterday. 12/05: Normal reading this morning continue checking daily labs 12/06: Stable, 1.7 today 12/07: Stable, 1.6 today (7) GERD (gastroesophageal reflux disease): Qualifiers: Esophagitis presence: esophagitis presence not specified Qualified Code(s): K21.9 - Gastro-esophageal reflux disease without esophagitis Code(s): K21.9 - Gastro-esophageal reflux disease without esophagitis Status: Acute Assessment and Plan: PPI ordered, EGD no ulcerations (8) Dehydration: Code(s): E86.0 - Dehydration Status: Acute Assessment and Plan: 12/07: IV fluids continue to infuse, patient placed on clear liquid diet by GI post EGD, Dobhoff feeding tube (DFT) in place. Will consider tube feedings Plan GI placed DFT in third portion of duodenum, expect orders for tube feeds soon. Stool pancreatic elastase ordered. Stool softener for constipation per patient request Time Spent With Patient Time with patient: 25 - 35 minutes Subjective Date/time seen: 12/07/22 13:50 Interval history: 12/03: This is a 47-year-old female patient with history of genetic hypertriglyceridemia and recurrent acute on chronic pancreatitis who returns to the hospital 1 day post discharge. She states that she was not able to tolerate any food or fluids orally home. She also reports that she has had diarrhea but no solid stools for we
[2022-12-07 14:00] VITALS: BP 129/72; PULSE 68; RESP 18; TEMP 36.7; O2SAT 97
[2022-12-07 16:54] LABS: Glucose Point of Care 91 mg/dl (65-105)
[2022-12-07] MEDS: diphenhydrAMINE HCl CAP 25 MG CAPSULE 50 MG PO (20:19)
[2022-12-07] MEDS: traZODone HCL 50 MG TABLET 200 MG PO (20:26)
[2022-12-07 20:51] LABS: Glucose Point of Care 118 mg/dl (65-105)
[2022-12-07 21:31] VITALS: BP 148/71; PULSE 81; RESP 14; TEMP 36.2; O2SAT 98
[2022-12-07] MEDS: ONDANSETRON INJ 4 MG/2 ML VIAL IV PUSH (22:36)
[2022-12-08] MEDS: KETOROLAC 15 MG/ML VIAL (*BKC) IV PUSH ×3 (00:27→11:08)
[2022-12-08] MEDS: PANTOPRAZOLE SODIUM IV 40 MG VIAL IV PUSH ×2 (00:27→13:06)
[2022-12-08] MEDS: HYDROmorphone HCL INJ (*CRX) 1 MG/ML SYR IV PUSH ×3 (02:49→11:07)
[2022-12-08] MEDS: LACTATED RINGERS 1,000 ML 100 ML IV CONT ×2 (03:22→15:09)
[2022-12-08 05:41] VITALS: BP 134/71; PULSE 69; RESP 12; TEMP 36.2; O2SAT 94
[2022-12-08] MEDS: LEVOTHYROXINE SODIUM INJ 100 MCG/5 ML VIAL IV PUSH (06:01)
[2022-12-08] MEDS: METOCLOPRAMIDE HCL INJ 10 MG/2 ML VIAL IV PUSH ×4 (06:02→20:37)
[2022-12-08 06:13] LABS: Glucose Point of Care 84 mg/dl (65-105)
[2022-12-08 06:51] LABS: Hematocrit 39.5 % (37.0-47.0); Hemoglobin 12.6 g/dL (12.0-15.0); Mean Corpuscular HGB Conc 31.9 g/dl (32-36); Mean Corpuscular Hemoglobin 28.8 pg (26-34); Mean Corpuscular Volume 90.2 fl (80-100); Platelet Count Result 269 k/mm3 (150-375); Red Blood Count 4.38 M/mm3 (4.2-5.4); Red Cell Distribution Width 15.1 % (11.5-14.5); White Blood Count 6.4 K/mm3 (4.5-10.0)
[2022-12-08 07:06] LABS: Alanine Aminotransferase 22 U/L (6-35); Alkaline Phosphatase 43 U/L (38-126); Anion Gap 5 mmol/L (8-16); Aspartate Amino Transferase 35 U/L (14-36); Bilirubin,Total 0.6 mg/dL (0.2-1.3); Blood Urea Nitrogen 5 mg/dL (7-17); Calcium 8.8 mg/dL (8.4-10.2); Carbon Dioxide 31 mmol/L (22-30); Chloride 99 mmol/L (98-107); Estimated CRCL calculation 92 ml/min; Estimated Glomerular Filt Rate > 60; Glucose 79 mg/dL (65-110); Magnesium 1.5 mg/dL (1.6-2.3); Potassium 3.7 mmol/L (3.4-5.0); Sodium 135 mmol/L (137-145); Triglycerides 245 mg/dL (<150)
[2022-12-08] MEDS: ROSUVASTATIN 20 MG TABLET PO (08:26)
[2022-12-08] MEDS: FENOFIBRATE NANOCRYSTALLIZED 145 MG TABLET PO (08:26)
[2022-12-08] MEDS: SENNA/DOCUSATE SODIUM TABLET 1 TAB PO ×2 (08:26→21:28)
[2022-12-08] MEDS: MAGNESIUM SULFATE 3GM/D5W100ML 3 GM/100 ML BAG IVPB (08:26)
[2022-12-08] MEDS: buPROPion HCL SR (12 HR) 150 MG TAB PO (08:26)
[2022-12-08] MEDS: CITALOPRAM HYDROBROMIDE 20 MG TABLET 40 MG PO (08:26)
[2022-12-08] MEDS: diphenhydrAMINE HCl CAP 25 MG CAPSULE 50 MG PO (08:30)
[2022-12-08 08:39] LABS: Glucose Point of Care 71 mg/dl (65-105)
--- NOTE | 2022-12-08 09:58 | PM.IMPN ---
Progress Note: A&P Assessment and Plan (1) Acute on chronic pancreatitis: Code(s): K85.90 - Acute pancreatitis without necrosis or infection, unspecified; K86.1 - Other chronic pancreatitis Status: Acute Assessment and Plan: Control nausea vomiting, pain control, IV fluids, advance diet as tolerated from clear liquids. 12/04: Patient still only taking small amounts of clear liquids. Discussed that we would need to consider feeding tube if unable to maintain sufficient caloric intake orally. Will defer this decision for a couple of days. 12/05: patient is advancing her diet and is tolerating small amounts of actual food. Consult dietitian. 12/06: Hydroelectric Systems Technician concerned for exocrine pancreatic insufficiency. Ordered stool elastase and consulted GI. Appreciate any recommendations. 12/07: Ultrasound of the abdomen showed inflammation of the tail of the pancreas. Incidentally large kidney noted. GI took patient for EGD which was reported normal mucosa and Dobbhoff feeding tube placed under fluoroscopy located in the 3rd portion of the duodenum. 12/08: patient is tolerating clears but unable to sustain enough nutrition orally due to pain and nausea. Will begin tube feeds through Dobbhoff feeding tube. Patient reports that she has had to give herself tube feeds at home in the past. Will need to arrange equipment if patient to do this at home again or need to arrange rehabilitation placement. Dietitian and PT OT consulted. 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 Consult to Nephrology canceled as patient's triglycerides are lower than threshold for plasmapheresis. 12/05: triglyceride significantly improved, only slightly elevated now 12/06: Level is 150 today 12/07: triglycerides 168 today 12/08: triglycerides 245 today (3) Malnutrition: Code(s): E46 - Unspecified protein-calorie malnutrition Status: Acute Assessment and Plan: 12/07: IV fluids continue to infuse, patient placed on clear liquid diet by GI post EGD, Dobhoff feeding tube (DFT) in place. Will consider tube feedings 12/08: Patient able to tolerate clear liquids but having continued severe abdominal pain. Patient has gone nearly 2 weeks without adequate oral intake. Will begin tube feeds today. 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 (5) Insulin dependent diabetes mellitus: Status: Chronic Assessment and Plan: Accu-Cheks with basal and corrective insulin, on Tresiba, will use Lantus 12/05: Patient mildly hypoglycemic this morning they came up with juice and food. Will decrease Lantus dose as patient is taking in less oral intake 12/06: blood sugars reviewed, patient NPO, evening Lantus held 12/07: blood sugars reviewed, resume Lantus 12/08: blood sugars reviewed and patient not currently requiring supplementation, continue Lantus but expect supplementation needs with tube feeds (6) Hypokalemia: Code(s): E87.6 - Hypokalemia Status: Acute Assessment and Plan: IV replacement due to continue nausea vomiting 12/04: Continues to be low ordered IV and oral replacement 12/05: improving mildly. Ordered p.o. replacement. 12/06: improving with oral supplementation 12/07: Stable 12/08 stable at 3.7 continue oral supplementation (7) Hypomagnesemia: Code(s): E83.42 - Hypomagnesemia Status: Acute Assessment and Plan: IV replacement due to continue nausea vomiting 12/04: Improved with IV replacement yesterday. 12/05: Normal reading this morning continue checking daily labs 12/06: Stable, 1.7 today 12/07: Stable, 1.6 today 12/08: level is 1.5 today. Ordered IV replacement. (8) GERD (gastroesophageal reflux disease): Qualifiers: Esophagitis presence: esophagitis presence not specified Ag
[2022-12-08 11:24] LABS: Glucose Point of Care 82 mg/dl (65-105)
[2022-12-08] MEDS: ENOXAPARIN 40 MG/0.4 ML SYRINGE SUB-Q (13:06)
[2022-12-08] MEDS: HYDROcodone/acetaminophen (*CRX) 10-325 MG TABLET 1 TAB PO ×2 (13:12→18:06)
[2022-12-08 14:30] VITALS: BP 111/73; PULSE 84; RESP 16; TEMP 36.8; O2SAT 93
[2022-12-08] MEDS: HYDROmorphone HCL INJ (*CRX) 1 MG/ML SYR 0.5 MG IV PUSH (15:07)
--- NOTE | 2022-12-08 15:28 | WPDGIPROGNO ---
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 Status: Acute Assessment and Plan: on fibrates similar episodes related to elevated TG level (3) Diabetes mellitus: Qualifiers: Diabetes mellitus type: type 2 Diabetes mellitus exterminator helper termite insulin use: without exterminator helper termite use Diabetes mellitus complication status: with hyperglycemia Qualified Code(s): E11.65 - Type 2 diabetes mellitus with hyperglycemia Code(s): E11.9 - Type 2 diabetes mellitus without complications Status: Acute (4) Nausea & vomiting: Code(s): R11.2 - Nausea with vomiting, unspecified Status: Acute Assessment and Plan: still with nausea medical support post pyloric feeding using DHT (5) Malnutrition: Code(s): E46 - Unspecified protein-calorie malnutrition Status: Acute Subjective Date/time seen: 12/08/22 15:28 Interval history: no major changes, EGD no major findings DHT in place and awaiting to start tube feeding Review of Systems Review of Systems: All systems reviewed & are unremarkable except as noted in HPI and below Exam Const: General: no acute distress HENMT: Other: DHT in place Eyes: Sclera: sclerae normal Neck: Neck: supple Resp: Auscultation: clear to auscultation bilaterally Cardio: Rate: regular rate GI: GI Palp: Yes Soft to palpation, Yes Tenderness to palpation present (GI) (mild ttp in epigastric) and No Guarding due to palpation present (GI) Auscultation: normal bowel sounds Skin: General skin exam: normal color Neuro: Speech: normal speech Motor exam (neuro): 5/5 motor strength present throughout Extrem: General: normal to inspection Psych: Mental Status: mental status grossly normal Objective Data Vital Signs Vital Signs: Vital Signs - 24 hr 12/07/22 20:00 12/07/22 21:31 12/08/22 05:41 Temperature 97.2 F L 97.2 F L Pulse Rate 81 69 Respiratory Rate 14 12 Blood Pressure 148/71 H 134/71 Pulse Oximetry 98 94 Oxygen Delivery Room Air 12/08/22 08:00 12/08/22 14:20 Temperature Pulse Rate Respiratory Rate Blood Pressure Pulse Oximetry Oxygen Delivery Room Air Room Air Intake/Output Intake/Output: Intake & Output 12/05/22 12/06/22 12/07/22 12/08/22 23:59 23:59 23:59 23:59 Intake Total 3480 2086 2640 2600 Output Total 3600 4100 1500 1140 2600 Meds/Results Medications: Active Medications Generic Name Dose Route Start Last Admin Trade Name Freq PRN Reason Stop Dose Admin Acetaminophen 650 mg 12/03/22 11:03 Acetaminophen 325 Mg Tablet PO Q4H PRN Mild Pain or Fever Hydrocodone Bitart/Acetaminophen 1 tab 12/08/22 12:10 12/08/22 13:12 Hydrocodone/Acetaminophen (*Crx) 10-325 Mg Tablet PO 1 tab Q4H PRN Administration Pain Rated 7-10 Hydrocodone Bitart/Acetaminophen 1 tab 12/08/22 12:10 Hydrocodone/Acetaminophen (*Crx) 5-325 Mg Tablet PO Q4H PRN Pain Rated 4-6 Bupropion HCl 150 mg 12/03/22 09:00 12/08/22 08:26 Bupropion Hcl Sr (12 Hr) 150 Mg Tab PO 150 mg DAILY RAPHAEL Administration Citalopram Hydrobromide 40 mg 12/03/22 09:00 12/08/22 08:26 Citalopram Hydrobromide 20 Mg Tablet PO 40 mg DAILY RAPHAEL Administration Dextrose 12.5 gm 12/03/22 03:42 Dextrose 50% 25 Gm/50 Ml Syringe IV PUSH PRN PRN Hypoglycemia Protocol Diphenhydramine HCl 50 mg 12/04/22 15:08 12/08/22 08:30 Diphenhydramine Hcl Cap 25 Mg Capsule PO 50 mg Q6H PRN Administration Itching or Allergies Enoxaparin Sodium 40 mg 12/08/22 13:00 12/08/22 13:06 Enoxaparin 40 Mg/0.4 Ml Syringe SUB-Q 40 mg DAILY RAPHAEL Administration Fenofibrate
--- NOTE | 2022-12-08 15:38 | PCPTNOTE ---
received PT orders for pt; chart reviewed and talked with pt, she stated she is indep with walking and did not need PT. Left message for Gonzalo Godwin- inform of above & requesting d/c orders.
--- NOTE | 2022-12-08 15:43 | PCPTNOTE ---
talked with Gonzalo Godwin and d/c orders received.
[2022-12-08 17:40] LABS: Glucose Point of Care 83 mg/dl (65-105)
[2022-12-08 19:35] VITALS: BP 122/61; PULSE 73; RESP 14; TEMP 36.9; O2SAT 96
--- NOTE | 2022-12-08 19:59 | ECG_ITS ---
Measurements Intervals [place] Rate: 69 P: 43 HI: 177 QRS: 21 QRSD: 90 T: -18 QT: 399 QTc: 430 Interpretive Statements SINUS RHYTHM NONSPECIFIC T-WAVE ABNORMALITY ABNORMAL ECG COMPARED TO ECG 12/02/2022 19:11:43 NO SIGNIFICANT CHANGES Electronically Signed On 12-09-2022 10:05:19 CDT by Darío Stock M.D.
[2022-12-08] MEDS: MORPHINE SULFATE (*CRX) 2 MG/ML INJ IV PUSH (20:34)
[2022-12-08 20:37] LABS: Glucose Point of Care 98 mg/dl (65-105)
[2022-12-08 20:44] LABS: Troponin I < 0.012 ng/mL (0.000-0.034)
[2022-12-08 21:15] VITALS: O2SAT 97
[2022-12-08] MEDS: traZODone HCL 50 MG TABLET 200 MG PO (21:28)
[2022-12-08 21:32] VITALS: BP 127/76; PULSE 72; RESP 13; TEMP 36.9; O2SAT 97
--- NOTE | 2022-12-08 21:49 | PC.NURSE ---
Pt frequently requesting Dilaudid, stating nothing else works for her. Pt was c/o pain 12/06 and given and [place] 10. Pt requested Dilaudid shortly afterwards, and stated she was now having left sided chest pain. Guerita notified (JOHNATHAN) and chest pain protocol was followed. Pt was given Morphine for the chest pain. Pt now states her pain is more left breast pain now and asking about the Dilaudid. Educated pt on narcotic use and how it is unsafe to give her the Dilaudid after she has received both [place] 10 and Morphine is a close time frame. Pt exhibited understanding at this time.
[2022-12-09 02:08] LABS: Troponin I < 0.012 ng/mL (0.000-0.034)
[2022-12-09] MEDS: PANTOPRAZOLE SODIUM IV 40 MG VIAL IV PUSH ×2 (02:41→13:04)
[2022-12-09] MEDS: LACTATED RINGERS 1,000 ML 100 ML IV CONT (02:41)
[2022-12-09 05:22] LABS: Glucose Point of Care 159 mg/dl (65-105)
[2022-12-09] MEDS: METOCLOPRAMIDE HCL INJ 10 MG/2 ML VIAL IV PUSH ×3 (05:33→16:36)
[2022-12-09] MEDS: LEVOTHYROXINE SODIUM INJ 100 MCG/5 ML VIAL IV PUSH (05:33)
[2022-12-09] MEDS: HYDROcodone/acetaminophen (*CRX) 10-325 MG TABLET 1 TAB PO ×3 (05:36→16:36)
[2022-12-09 05:57] VITALS: BP 123/57; PULSE 72; RESP 13; TEMP 36.7; O2SAT 96
[2022-12-09 06:58] LABS: Hematocrit 37.4 % (37.0-47.0); Hemoglobin 11.9 g/dL (12.0-15.0); Mean Corpuscular HGB Conc 31.8 g/dl (32-36); Mean Corpuscular Hemoglobin 29.2 pg (26-34); Mean Corpuscular Volume 91.7 fl (80-100); Mean Platelet Volume 9.2 fl (7.4-10.4); Platelet Count Result 264 k/mm3 (150-375); Red Blood Count 4.08 M/mm3 (4.2-5.4); Red Cell Distribution Width 15.1 % (11.5-14.5)
[2022-12-09 07:13] LABS: Alanine Aminotransferase 17 U/L (6-35); Albumin Level 3.7 g/dL (3.5-5.1); Alkaline Phosphatase 51 U/L (38-126); Anion Gap 3 mmol/L (8-16); Aspartate Amino Transferase 24 U/L (14-36); Bilirubin,Total 0.6 mg/dL (0.2-1.3); Blood Urea Nitrogen 7 mg/dL (7-17); Calcium 8.7 mg/dL (8.4-10.2); Carbon Dioxide 29 mmol/L (22-30); Chloride 101 mmol/L (98-107); Estimated CRCL calculation 92 ml/min; Estimated Glomerular Filt Rate > 60; Glucose 145 mg/dL (65-110); Magnesium 1.9 mg/dL (1.6-2.3); Potassium 3.7 mmol/L (3.4-5.0); Sodium 133 mmol/L (137-145); Triglycerides 379 mg/dL (<150)
[2022-12-09 07:33] LABS: Glucose Point of Care 162 mg/dl (65-105)
[2022-12-09] MEDS: SENNA/DOCUSATE SODIUM TABLET 1 TAB PO ×2 (08:37→20:50)
[2022-12-09] MEDS: buPROPion HCL SR (12 HR) 150 MG TAB PO (08:37)
[2022-12-09] MEDS: ENOXAPARIN 40 MG/0.4 ML SYRINGE SUB-Q (08:37)
[2022-12-09] MEDS: CITALOPRAM HYDROBROMIDE 20 MG TABLET 40 MG PO (08:37)
[2022-12-09] MEDS: ROSUVASTATIN 20 MG TABLET PO (08:38)
[2022-12-09] MEDS: FENOFIBRATE NANOCRYSTALLIZED 145 MG TABLET PO (08:38)
[2022-12-09] MEDS: HYDROcodone/acetaminophen (*CRX) 5-325 MG TABLET 1 TAB PO ×2 (08:39→20:47)
--- NOTE | 2022-12-09 09:00 | WPDGIPROGNO ---
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 Status: Acute Assessment and Plan: on fibrates similar episodes related to elevated TG level (3) Diabetes mellitus: Qualifiers: Diabetes mellitus type: type 2 Diabetes mellitus exterminator helper insulin use: without fci use Diabetes mellitus complication status: with hyperglycemia Qualified Code(s): E11.65 - Type 2 diabetes mellitus with hyperglycemia Code(s): E11.9 - Type 2 diabetes mellitus without complications Status: Acute (4) Nausea & vomiting: Code(s): R11.2 - Nausea with vomiting, unspecified Status: Acute Assessment and Plan: still with nausea but improving medical support post pyloric feeding using DHT (5) Malnutrition: Code(s): E46 - Unspecified protein-calorie malnutrition Status: Acute Subjective Date/time seen: 12/09/22 09:00 Interval history: on tube feeding at 50 ml/h, slightly better, still with pain but improved Review of Systems Review of Systems: All systems reviewed & are unremarkable except as noted in HPI and below Exam Const: General: no acute distress HENMT: Other: DHT in place Eyes: Sclera: sclerae normal Neck: Neck: supple Resp: Auscultation: clear to auscultation bilaterally Cardio: Rate: regular rate GI: GI Palp: Yes Soft to palpation, Yes Tenderness to palpation present (GI) (mild ttp in epigastric) and No Guarding due to palpation present (GI) Auscultation: normal bowel sounds Skin: General skin exam: normal color Neuro: Speech: normal speech Motor exam (neuro): 5/5 motor strength present throughout Extrem: General: normal to inspection Psych: Mental Status: mental status grossly normal Objective Data Vital Signs Vital Signs: Vital Signs - 24 hr 12/08/22 14:20 12/08/22 14:30 12/08/22 19:35 Temperature 98.2 F 98.4 F Pulse Rate 84 73 Respiratory Rate 16 14 Blood Pressure 111/73 122/61 Pulse Oximetry 93 96 Oxygen Delivery Room Air 12/08/22 21:32 12/08/22 20:00 12/08/22 21:15 Temperature 98.5 F Pulse Rate 72 Respiratory Rate 13 Blood Pressure 127/76 Pulse Oximetry 97 97 Oxygen Delivery Room Air Room Air 12/09/22 05:57 Temperature 98.0 F Pulse Rate 72 Respiratory Rate 13 Blood Pressure 123/57 L Pulse Oximetry 96 Oxygen Delivery Intake/Output Intake/Output: Intake & Output 12/06/22 12/07/22 12/08/22 12/09/22 23:59 23:59 23:59 23:59 Intake Total 2086 2640 3260 1500 Output Total 4100 1500 1100 400 Balance -2014 1140 2160 1100 Meds/Results Medications: Active Medications Generic Name Dose Route Start Last Admin Trade Name Freq PRN Reason Stop Dose Admin Acetaminophen 650 mg 12/03/22 11:03 Acetaminophen 325 Mg Tablet PO Q4H PRN Mild Pain or Fever Hydrocodone Bitart/Acetaminophen 1 tab 12/08/22 12:10 12/09/22 05:36 Hydrocodone/Acetaminophen (*Crx) 10-325 Mg Tablet PO 1 tab Q4H PRN Administration Pain Rated 7-10 Hydrocodone Bitart/Acetaminophen 1 tab 12/08/22 12:10 12/09/22 08:39 Hydrocodone/Acetaminophen (*Crx) 5-325 Mg Tablet PO 1 tab Q4H PRN Administration Pain Rated 4-6 Bupropion HCl 150 mg 12/03/22 09:00 12/09/22 08:37 Bupropion Hcl Sr (12 Hr) 150 Mg Tab PO 150 mg DAILY RAPHAEL Administration Citalopram Hydrobromide 40 mg 12/03/22 09:00 12/09/22 08:37 Citalopram Hydrobromide 20 Mg Tablet PO 40 mg DAILY RAPHAEL Administration Dextrose 12.5 gm 12/03/22 03:42 Dextrose 50% 25 Gm/50 Ml Syringe IV PUSH PRN PRN Hypoglycemia Protocol Diphenhydramine HCl 50 mg 12/04/22 15:08 12/08/22 08:30
--- NOTE | 2022-12-09 10:04 | PM.IMPN ---
Progress Note: A&P Assessment and Plan (1) Acute on chronic pancreatitis: Code(s): K85.90 - Acute pancreatitis without necrosis or infection, unspecified; K86.1 - Other chronic pancreatitis Status: Acute Assessment and Plan: Control nausea vomiting, pain control, IV fluids, advance diet as tolerated from clear liquids. 12/04: Patient still only taking small amounts of clear liquids. Discussed that we would need to consider feeding tube if unable to maintain sufficient caloric intake orally. Will defer this decision for a couple of days. 12/05: patient is advancing her diet and is tolerating small amounts of actual food. Consult dietitian. 12/06: Water Resource Engineering Specialist concerned for exocrine pancreatic insufficiency. Ordered stool elastase and consulted GI. Appreciate any recommendations. 12/07: Ultrasound of the abdomen showed inflammation of the tail of the pancreas. Incidentally large kidney noted. GI took patient for EGD which was reported normal mucosa and Dobbhoff feeding tube placed under fluoroscopy located in the 3rd portion of the duodenum. 12/08: patient is tolerating clears but unable to sustain enough nutrition orally due to pain and nausea. Will begin tube feeds through Dobbhoff feeding tube. Patient reports that she has had to give herself tube feeds at home in the past. Will need to arrange equipment if patient to do this at home again or need to arrange rehabilitation placement. Dietitian and PT OT consulted. 12/09: Pain is better now that nutrition is post pyloric. Patient tolerating transition to oral pain meds. 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 Consult to Nephrology canceled as patient's triglycerides are lower than threshold for plasmapheresis. 12/05: triglyceride significantly improved, only slightly elevated now 12/06: Level is 150 today 12/07: triglycerides 168 today 12/08: triglycerides 245 today 12/09: triglycerides 379 today--will watch and may need plasmapheresis if continuing to climb. (3) Malnutrition: Code(s): E46 - Unspecified protein-calorie malnutrition Status: Acute Assessment and Plan: 12/07: IV fluids continue to infuse, patient placed on clear liquid diet by GI post EGD, Dobhoff feeding tube (DFT) in place. Will consider tube feedings 12/08: Patient able to tolerate clear liquids but having continued severe abdominal pain. Patient has gone nearly 2 weeks without adequate oral intake. Will begin tube feeds today. 12/09: Patient doing well with tube feeds. Awaiting Dietary recommendations to transition to bolus feeds with plan to send home on bolus feeds. 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 (5) Insulin dependent diabetes mellitus: Status: Chronic Assessment and Plan: Accu-Cheks with basal and corrective insulin, on Tresiba, will use Lantus 12/05: Patient mildly hypoglycemic this morning they came up with juice and food. Will decrease Lantus dose as patient is taking in less oral intake 12/06: blood sugars reviewed, patient NPO, evening Lantus held 12/07: blood sugars reviewed, resume Lantus 12/08: blood sugars reviewed and patient not currently requiring supplementation, continue Lantus but expect supplementation needs with tube feeds 12/09: Lantus back to home dose 36 units now that patient is taking in calories. (6) Hypokalemia: Code(s): E87.6 - Hypokalemia Status: Acute Assessment and Plan: IV replacement due to continue nausea vomiting 12/04: Continues to be low ordered IV and oral replacement 12/05: improving mildly. Ordered p.o. replacement. 12/06: improving with oral supplementation 12/07: Stable 12/08: stable at 3.7 continue oral supplementation 12/09: 3.7 Patient does not actually take the ordered potassium daily due to di
[2022-12-09 11:32] LABS: Glucose Point of Care 155 mg/dl (65-105)
[2022-12-09 14:00] VITALS: BP 133/81; PULSE 76; RESP 14; TEMP 36.4; O2SAT 99
[2022-12-09 16:59] LABS: Glucose Point of Care 165 mg/dl (65-105)
[2022-12-09 20:46] VITALS: BP 135/80; PULSE 70
[2022-12-09] MEDS: PANTOPRAZOLE 40 MG TABLET PO (20:50)
[2022-12-09] MEDS: traZODone HCL 50 MG TABLET 200 MG PO (20:51)
[2022-12-09 22:00] VITALS: RESP 18; TEMP 36.3
[2022-12-09] MEDS: INSULIN GLARGINE (*BKC) 100 UNITS/ML 20 UNITS SUB-Q (22:00)
[2022-12-09 22:13] LABS: Glucose Point of Care 186 mg/dl (65-105)
--- NOTE | 2022-12-09 23:19 | PC.NURSE ---
pts blood sugar was 186 @2100 with 36 units of lantus ordered. RN called PA and she ordered a one time 20 unit dose of lantus.
[2022-12-10 05:40] LABS: Glucose Point of Care 203 mg/dl (65-105)
[2022-12-10 05:43] VITALS: BP 120/77; PULSE 77; RESP 16; TEMP 36; O2SAT 96
[2022-12-10] MEDS: INSULIN ASPART (*BKC) 100 UNITS/ML SUB-Q (05:49)
[2022-12-10] MEDS: LEVOTHYROXINE SODIUM 100 MCG TABLET 200 MCG PO (06:08)
[2022-12-10 06:35] LABS: Hematocrit 36.2 % (37.0-47.0); Mean Corpuscular HGB Conc 33.1 g/dl (32-36); Mean Corpuscular Hemoglobin 29.5 pg (26-34); Mean Corpuscular Volume 88.9 fl (80-100); Mean Platelet Volume 9.5 fl (7.4-10.4); Platelet Count Result 262 k/mm3 (150-375); Red Blood Count 4.07 M/mm3 (4.2-5.4); Red Cell Distribution Width 14.6 % (11.5-14.5); White Blood Count 6.3 K/mm3 (4.5-10.0)
[2022-12-10 06:50] LABS: Alanine Aminotransferase 15 U/L (6-35); Albumin Level 3.9 g/dL (3.5-5.1); Alkaline Phosphatase 60 U/L (38-126); Anion Gap 4 mmol/L (8-16); Aspartate Amino Transferase 21 U/L (14-36); Bilirubin,Total 0.5 mg/dL (0.2-1.3); Blood Urea Nitrogen 11 mg/dL (7-17); Calcium 9.3 mg/dL (8.4-10.2); Carbon Dioxide 29 mmol/L (22-30); Chloride 99 mmol/L (98-107); Estimated CRCL calculation 106 ml/min; Estimated Glomerular Filt Rate > 60; Glucose 188 mg/dL (65-110); Magnesium 1.8 mg/dL (1.6-2.3); Potassium 3.5 mmol/L (3.4-5.0); Sodium 132 mmol/L (137-145); Triglycerides 368 mg/dL (<150)
[2022-12-10 06:54] LABS: Troponin I < 0.012 ng/mL (0.000-0.034)
[2022-12-10 07:46] LABS: Glucose Point of Care 200 mg/dl (65-105)
[2022-12-10] MEDS: HYDROcodone/acetaminophen (*CRX) 10-325 MG TABLET 1 TAB PO ×3 (08:22→22:23)
[2022-12-10] MEDS: EMPAGLIFLOZIN 25 MG TABLET PO (08:23)
[2022-12-10] MEDS: PANTOPRAZOLE 40 MG TABLET PO ×2 (08:23→21:09)
[2022-12-10] MEDS: SENNA/DOCUSATE SODIUM TABLET 1 TAB PO (08:23)
[2022-12-10] MEDS: buPROPion HCL SR (12 HR) 150 MG TAB PO (08:24)
[2022-12-10] MEDS: metFORMIN HCL 500 MG TABLET 1000 MG PO ×2 (08:24→16:11)
[2022-12-10] MEDS: ROSUVASTATIN 20 MG TABLET PO (08:24)
[2022-12-10] MEDS: CITALOPRAM HYDROBROMIDE 20 MG TABLET 40 MG PO (08:24)
[2022-12-10] MEDS: ENOXAPARIN 40 MG/0.4 ML SYRINGE SUB-Q (08:24)
[2022-12-10] MEDS: FENOFIBRATE NANOCRYSTALLIZED 145 MG TABLET PO (08:24)
[2022-12-10] MEDS: ONDANSETRON INJ 4 MG/2 ML VIAL IV PUSH ×4 (08:34→22:23)
[2022-12-10 08:48] VITALS: PULSE 67; O2SAT 95
--- NOTE | 2022-12-10 10:43 | PCDIET ---
Nutrition consult regarding tube feeding. Pt currently has a dobhoff placed and is receiving Glucerna 1.2 @ 70ml/hr over 22 hrs for a total of 1848kcals, 92g protein, 1239ml fluid. Consult for bolus conversion and home use. *Noted bolus administration is not typically recommended through a dobhoff tube, and dobhoff tubes are not generally recommended for use longer than 4 weeks. Bolus conversion to meet estimated needs using same formula: 300ml Glucerna 1.2 - 5 times per day, with 120ml flush. This provides 1800kcals, 90g protein, 1807ml fluid.
--- NOTE | 2022-12-10 10:54 | PCNFU ---
Nutrition Follow-Up Complete: Inadequate oral intakes related to nausea,vomiting, diarrhea, abdominal pain at least 6 weeks as evidenced by patient report Goal:Tolerate PO diet Meet nutritional needs Pt current nutrition is Clear liquids, TF: Glucerna 1.2 @ 70ml/hr = 1848kcals, 92g protein, 1239ml fluid. Nutrition recommendation: consult for bolus conversion, however, bolus administration is not typically used for a dobhoff, and dobhoff tubes are not recommended for snf use. Last recorded weight is 84.7 kg. Bowel Motility: +BM 12/09 Labs Reviewed: HCT:36.2, NA:132, Glu:188, Tri Meds Noted: Reglan, lovenox, jardiance, novolog, lantus Skin: no skin issues Additional Notes: Pt is not tolerating clear liquids well but is tolerating tube feedings at this time. 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 Typically dobhoff tubes are not used for watermelon harvesting supervisor feedings or for bolus feedings due to the size in diameter of the tube. Conversion to bolus feeds as requested is 300ml of Glucerna 1.2, 5 times per day (typically a schedule similar to [id number]), 120ml flush with each feed. Following every Saturday and Saturday.
[2022-12-10 11:41] LABS: Glucose Point of Care 184 mg/dl (65-105)
--- NOTE | 2022-12-10 12:58 | WPDGIPROGNO ---
Progress Note: A&P Assessment and Plan (1) Nausea & vomiting: Code(s): R11.2 - Nausea with vomiting, unspecified Status: Acute Assessment and Plan: Nausea vomiting have improved and resolved over the weekend. She has been receiving Dobbhoff tube feedings with feeding distal to the ampulla Vater. Plan to increase diet. If tolerating diet she can be discharged. She may no longer need the Dobbhoff tube feedings given her current improvement. Hopefully if diet tolerated DC dobhoff tube and sent home tomorrow. (2) Acute on chronic pancreatitis: Code(s): K85.90 - Acute pancreatitis without necrosis or infection, unspecified; K86.1 - Other chronic pancreatitis Status: Acute Assessment and Plan: Patient presumed to have pancreatitis on the basis of hypertriglyceridemia. Imaging studies are normal as is her lipase. So this is somewhat of a presumptive diagnosis. Continue supportive care for now. 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 Currently under control after plasmapheresis during this hospital stay. (4) Hypertriglyceridemia: Code(s): E78.1 - Pure hyperglyceridemia Status: Chronic (5) Diabetes mellitus: Qualifiers: Diabetes mellitus type: type 2 Diabetes mellitus senior care insulin use: without buttermaker use Diabetes mellitus complication status: with hyperglycemia Qualified Code(s): E11.65 - Type 2 diabetes mellitus with hyperglycemia Code(s): E11.9 - Type 2 diabetes mellitus without complications Status: Acute Subjective Date/time seen: 12/10/22 12:58 Interval history: Patient alert comfortable at present. Denies abdominal pain. Tolerating Dobbhoff tube feedings with no difficulty. Tolerating oral liquids without difficulty. No more nausea vomiting. She has improved dramatically over the weekend. Review of Systems Review of Systems: Review of systems noncontributory. Exam Narrative: Physical exam reveals patient be alert. Vital signs stable. HEENT exam reveals no icterus. Lungs are clear. Heart without murmur. Abdomen bowel sounds present soft nontender with no organomegaly. Objective Data Vital Signs Vital Signs: Vital Signs - 24 hr 12/09/22 14:00 12/09/22 20:46 12/09/22 22:00 Temperature 97.5 F L 97.4 F L Pulse Rate 76 70 Respiratory Rate 14 18 Blood Pressure 133/81 135/80 Pulse Oximetry 99 Oxygen Delivery 12/10/22 05:43 12/10/22 08:48 12/10/22 08:00 Temperature 96.8 F L Pulse Rate 77 67 Respiratory Rate 16 Blood Pressure 120/77 Pulse Oximetry 96 95 Oxygen Delivery Room Air Room Air Intake/Output Intake/Output: Intake & Output 12/07/22 12/08/22 12/09/22 12/10/22 23:59 23:59 23:59 23:59 Intake Total 2640 3260 1500 2550 Output Total 1500 4311 605 8181 Balance 1140 2160 1100 1200 Meds/Results Medications: Active Medications Generic Name Dose Route Start Last Admin Trade Name Freq PRN Reason Stop Dose Admin Acetaminophen 650 mg 12/03/22 11:03 Acetaminophen 325 Mg Tablet PO Q4H PRN Mild Pain or Fever Hydrocodone Bitart/Acetaminophen 1 tab 12/08/22 12:10 12/10/22 08:22 Hydrocodone/Acetaminophen (*Crx) 10-325 Mg Tablet PO 1 tab Q4H PRN Administration Pain Rated 7-10 Hydrocodone Bitart/Acetaminophen 1 tab 12/08/22 12:10 12/09/22 20:47 Hydrocodone/Acetaminophen (*Crx) 5-325 Mg Tablet PO 1 tab Q4H PRN Administration Pain Rated 4-6 Bupropion HCl 150 mg 12/03/22 09:00 12/10/22 08:24 Bupropion Hcl Sr (12 Hr) 150 Mg Tab PO 150 mg DAILY RAPHAEL Administration Citalopram Hydrobromide 40 mg 12/03/22 09:00 12/10/22 08:24 Citalopram Hydrobromide 20 Mg Tablet PO 40 mg DAILY RAPHAEL Administration Dextrose 12.5 gm 12/03/22 03:42
--- NOTE | 2022-12-10 13:23 | PM.IMPN ---
Progress Note: A&P Assessment and Plan (1) Acute on chronic pancreatitis: Code(s): K85.90 - Acute pancreatitis without necrosis or infection, unspecified; K86.1 - Other chronic pancreatitis Status: Acute Assessment and Plan: Control nausea vomiting, pain control, IV fluids, advance diet as tolerated from clear liquids. 12/04: Patient still only taking small amounts of clear liquids. Discussed that we would need to consider feeding tube if unable to maintain sufficient caloric intake orally. Will defer this decision for a couple of days. 12/05: patient is advancing her diet and is tolerating small amounts of actual food. Consult dietitian. 12/06: Marketing Production Specialist concerned for exocrine pancreatic insufficiency. Ordered stool elastase and consulted GI. Appreciate any recommendations. 12/07: Ultrasound of the abdomen showed inflammation of the tail of the pancreas. Incidentally large kidney noted. GI took patient for EGD which was reported normal mucosa and Dobbhoff feeding tube placed under fluoroscopy located in the 3rd portion of the duodenum. 12/08: patient is tolerating clears but unable to sustain enough nutrition orally due to pain and nausea. Will begin tube feeds through Dobbhoff feeding tube. 12/09: Pain is better now that nutrition is post pyloric. Patient tolerating transition to oral pain meds. 12/10: Hold Dobbhoff at this time and try clear liquids. If patient tolerates can discharge patient. 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 Consult to Nephrology canceled as patient's triglycerides are lower than threshold for plasmapheresis. 12/05: triglyceride significantly improved, only slightly elevated now 12/06: Level is 150 12/07: triglycerides 168 12/08: triglycerides 245 12/09: triglycerides 379 12/10: triglycerides 368 (3) Malnutrition: Code(s): E46 - Unspecified protein-calorie malnutrition Status: Acute Assessment and Plan: 12/07: IV fluids continue to infuse, patient placed on clear liquid diet by GI post EGD, Dobhoff feeding tube (DFT) in place. Will consider tube feedings 12/08: Patient able to tolerate clear liquids but having continued severe abdominal pain. Patient has gone nearly 2 weeks without adequate oral intake. Will begin tube feeds today. 12/09: Patient doing well with tube feeds. 12/10: 2 feedings on hold and clear liquids initiated. 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 (5) Insulin dependent diabetes mellitus: Status: Chronic Assessment and Plan: Accu-Cheks with basal and corrective insulin, on Tresiba, will use Lantus 12/05: Patient mildly hypoglycemic this morning they came up with juice and food. Will decrease Lantus dose as patient is taking in less oral intake 12/06: blood sugars reviewed, patient NPO, evening Lantus held 12/07: blood sugars reviewed, resume Lantus 12/08: blood sugars reviewed and patient not currently requiring supplementation, continue Lantus but expect supplementation needs with tube feeds 12/09: Lantus back to home dose 36 units now that patient is taking in calories. (6) Hypokalemia: Code(s): E87.6 - Hypokalemia Status: Acute Assessment and Plan: IV replacement due to continue nausea vomiting 12/04: Continues to be low ordered IV and oral replacement 12/05: improving mildly. Ordered p.o. replacement. 12/06: improving with oral supplementation 12/07: Stable 12/08: stable at 3.7 continue oral supplementation 12/09: 3.7 Patient does not actually take the ordered potassium daily due to difficulty swallowing and causing pain. Will discontinue scheduled and use powdered supplement per G-tube if needed for low levels. (7) Hypomagnesemia: Code(s): E83.42 - Hypomagnesemia Status: Acute A
[2022-12-10 14:00] VITALS: BP 130/68; PULSE 79; RESP 18; TEMP 36.1; O2SAT 98
[2022-12-10 16:19] LABS: Glucose Point of Care 150 mg/dl (65-105)
[2022-12-10] MEDS: HYDROcodone/acetaminophen (*CRX) 5-325 MG TABLET 1 TAB PO (18:25)
[2022-12-10 20:00] VITALS: PULSE 81; RESP 15; O2SAT 96
[2022-12-10] MEDS: INSULIN GLARGINE (*BKC) 100 UNITS/ML 36 UNITS SUB-Q (21:06)
[2022-12-10] MEDS: traZODone HCL 50 MG TABLET 200 MG PO (21:09)
[2022-12-10 21:12] LABS: Glucose Point of Care 154 mg/dl (65-105)
[2022-12-10 21:58] VITALS: BP 121/85; PULSE 81; RESP 15; TEMP 36.2; O2SAT 96
[2022-12-11 05:38] VITALS: BP 112/67; PULSE 71; RESP 14; TEMP 36.1; O2SAT 97
[2022-12-11] MEDS: LEVOTHYROXINE SODIUM 100 MCG TABLET 200 MCG PO (06:11)
[2022-12-11 06:16] LABS: Hematocrit 38.4 % (37.0-47.0); Hemoglobin 12.5 g/dL (12.0-15.0); Mean Corpuscular HGB Conc 32.6 g/dl (32-36); Mean Corpuscular Hemoglobin 29.3 pg (26-34); Mean Corpuscular Volume 90.1 fl (80-100); Mean Platelet Volume 9.3 fl (7.4-10.4); Platelet Count Result 277 k/mm3 (150-375); Red Blood Count 4.26 M/mm3 (4.2-5.4); Red Cell Distribution Width 14.6 % (11.5-14.5); White Blood Count 6.9 K/mm3 (4.5-10.0)
[2022-12-11 06:19] LABS: Glucose Point of Care 108 mg/dl (65-105)
[2022-12-11 06:23] LABS: Alanine Aminotransferase 13 U/L (6-35); Albumin Level 4.3 g/dL (3.5-5.1); Alkaline Phosphatase 47 U/L (38-126); Anion Gap 5 mmol/L (8-16); Aspartate Amino Transferase 18 U/L (14-36); Bilirubin,Total 0.4 mg/dL (0.2-1.3); Blood Urea Nitrogen 13 mg/dL (7-17); Calcium 9.4 mg/dL (8.4-10.2); Carbon Dioxide 34 mmol/L (22-30); Chloride 98 mmol/L (98-107); Estimated CRCL calculation 73 ml/min; Estimated Glomerular Filt Rate > 60; Glucose 103 mg/dL (65-110); Potassium 3.6 mmol/L (3.4-5.0); Sodium 137 mmol/L (137-145); Triglycerides 336 mg/dL (<150)
--- NOTE | 2022-12-11 07:15 | WPDGIPROGNO ---
Progress Note: A&P Assessment and Plan (1) Nausea & vomiting: Code(s): R11.2 - Nausea with vomiting, unspecified Status: Acute Assessment and Plan: Nausea vomiting resolved. Abdomen benign today. Tolerating diet. Plan to discontinue Dobbhoff tube. May discharge if diet tolerated. Patient will need follow-up with established doctors at [place]. (2) Acute on chronic pancreatitis: Code(s): K85.90 - Acute pancreatitis without necrosis or infection, unspecified; K86.1 - Other chronic pancreatitis Status: Acute Assessment and Plan: Patient presumed to have had pancreatitis on the basis of hypertriglyceridemia. Strict control of lipid levels strongly encouraged. Low-fat diet. (3) Hypertriglyceridemia: Code(s): E78.1 - Pure hyperglyceridemia Status: Chronic Assessment and Plan: Strict control of lipid levels encouraged as this likely contributes to pancreatitis. Patient should follow-up with established doctors in [place] after discharge. Subjective Date/time seen: 12/11/22 07:15 Interval history: Patient alert comfortable this morning. Tolerating diet. Tolerating Dobbhoff tube feedings. No difficulty with low-fat diet today. No more nausea vomiting. Denies abdominal pain. Review of Systems Review of Systems: Review of systems noncontributory. Exam Narrative: Physical exam reveals patient be alert. She is afebrile. Vital signs stable. HEENT exam reveals no icterus. Lungs are clear. Heart without murmur. Abdomen bowel sounds present soft nontender no organomegaly. Dobbhoff tube in place. Objective Data Vital Signs Vital Signs: Vital Signs - 24 hr 12/10/22 08:48 12/10/22 08:00 12/10/22 14:00 Temperature 97.0 F L Pulse Rate 67 79 Respiratory Rate 18 Blood Pressure 130/68 Pulse Oximetry 95 98 Oxygen Delivery Room Air Room Air 12/10/22 21:58 12/10/22 20:00 12/11/22 05:38 Temperature 97.1 F L 96.9 F L Pulse Rate 81 81 71 Respiratory Rate 15 15 14 Blood Pressure 121/85 112/67 Pulse Oximetry 96 96 97 Oxygen Delivery Room Air Intake/Output Intake/Output: Intake & Output 12/08/22 12/09/22 12/10/22 12/11/22 23:59 23:59 23:59 23:59 Intake Total 3260 1500 3278 750 Output Total 4345 172 8292 Balance 2160 1100 1478 750 Meds/Results Medications: Active Medications Generic Name Dose Route Start Last Admin Trade Name Freq PRN Reason Stop Dose Admin Acetaminophen 650 mg 12/03/22 11:03 Acetaminophen 325 Mg Tablet PO Q4H PRN Mild Pain or Fever Hydrocodone Bitart/Acetaminophen 1 tab 12/08/22 12:10 12/10/22 22:23 Hydrocodone/Acetaminophen (*Crx) 10-325 Mg Tablet PO 1 tab Q4H PRN Administration Pain Rated 7-10 Hydrocodone Bitart/Acetaminophen 1 tab 12/08/22 12:10 12/10/22 18:25 Hydrocodone/Acetaminophen (*Crx) 5-325 Mg Tablet PO 1 tab Q4H PRN Administration Pain Rated 4-6 Bupropion HCl 150 mg 12/03/22 09:00 12/10/22 08:24 Bupropion Hcl Sr (12 Hr) 150 Mg Tab PO 150 mg DAILY RAPHAEL Administration Citalopram Hydrobromide 40 mg 12/03/22 09:00 12/10/22 08:24 Citalopram Hydrobromide 20 Mg Tablet PO 40 mg DAILY RAPHAEL Administration Dextrose 12.5 gm 12/03/22 03:42 Dextrose 50% 25 Gm/50 Ml Syringe IV PUSH PRN PRN Hypoglycemia Protocol Diphenhydramine HCl 50 mg 12/04/22 15:08 12/08/22 08:30 Diphenhydramine Hcl Cap 25 Mg Capsule PO 50 mg Q6H PRN Administration Itching or Allergies Empagliflozin 25 mg 12/10/22 09:00 12/10/22 08:23 Empagliflozin 25 Mg Tablet PO 25 mg DAILY RAPHAEL Administration Enoxaparin Sodium 40 mg 12/08/22 13:00 12/10/22 08:24 Enoxaparin 40 Mg/0.4 Ml Syringe SUB-Q 40 mg DAILY RAPHAEL Administration Fenofibrate 145 mg 12/03/22 09:00 12/10/22 08:24 Fenofibrate Nanocrystallized 145 Mg Tablet PO 145 mg DAILY RAPHAEL Administration Glucagon 1 mg 12/03/22 03:42
[2022-12-11] MEDS: ONDANSETRON INJ 4 MG/2 ML VIAL IV PUSH (07:27)
[2022-12-11 08:00] VITALS: O2SAT 97
[2022-12-11 08:09] LABS: Glucose Point of Care 116 mg/dl (65-105)
[2022-12-11] MEDS: CITALOPRAM HYDROBROMIDE 20 MG TABLET 40 MG PO (08:54)
[2022-12-11] MEDS: metFORMIN HCL 500 MG TABLET 1000 MG PO (08:54)
[2022-12-11] MEDS: FENOFIBRATE NANOCRYSTALLIZED 145 MG TABLET PO (08:54)
[2022-12-11] MEDS: buPROPion HCL SR (12 HR) 150 MG TAB PO (08:54)
[2022-12-11] MEDS: EMPAGLIFLOZIN 25 MG TABLET PO (08:54)
[2022-12-11] MEDS: ROSUVASTATIN 20 MG TABLET PO (08:55)
[2022-12-11] MEDS: PANTOPRAZOLE 40 MG TABLET PO (08:55)
[2022-12-11] MEDS: ENOXAPARIN 40 MG/0.4 ML SYRINGE SUB-Q (08:55)
--- NOTE | 2022-12-11 11:10 | PCNFU ---
Nutrition Follow-Up Complete: Inadequate oral intakes related to nausea,vomiting, diarrhea, abdominal pain at least 6 weeks as evidenced by patient report Goal:Tolerate PO diet Meet nutritional needs Pt meeting goal. Pt current nutrition is Low fat diet, Tube feeding has been held. Nutrition recommendation: Continue with current plan of care Last recorded weight is 84.7 kg. Bowel Motility: +BM 12/10 Labs Reviewed: HCT:36.2, NA:132, Glu:188, Tri Meds Noted: reglan, novolog, lantus, jardiance, lovenox Skin: WNL Additional Notes: Pt is currently off tube feedings today. Diet is advanced to low fat, pt reports she is tolerating well, good intake. Plans to go home on low fat diet and no tube feedings. Following every 7 days
--- NOTE | 2022-12-11 11:32 | PM.DS ---
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 Status: Acute (5) Insulin dependent diabetes mellitus: Status: Chronic (6) Hypokalemia: Code(s): E87.6 - Hypokalemia Status: Acute (7) Hypomagnesemia: Code(s): E83.42 - Hypomagnesemia Status: Acute (8) GERD (gastroesophageal reflux disease): Qualifiers: Esophagitis presence: esophagitis presence not specified Qualified Code(s): K21.9 - Gastro-esophageal reflux disease without esophagitis Code(s): K21.9 - Gastro-esophageal reflux disease without esophagitis Status: Acute DS: Summary Hospital Course Hospital Course: this is a 47-year-old female with past medical history of obesity, insulin-dependent diabetes, hypertriglyceridemia related to chylomicronemia resulting in chronic pancreatitis the presented to the ED on 12/02/2022 due to recurrent abdominal pain, nausea, vomiting and diarrhea. Patient was hospitalized from 11/20/2022 through 11/28/2022 for the exact same symptoms. At the time of the helps fill is a valladares she had plasmapheresis due to the elevated triglycerides greater than 2500. On discharge patient did not take any of her insulin or medication at that time of discharge. CT abdomen pelvis did not demonstrate any evidence of pancreatitis. Patient was started on IV fluids, analgesics and antiemetics on admission. Her diet was advanced as tolerated. Nephrology consulted due to prior plasmapheresis needed. Plasmapheresis was not needed during this hospitalization. After couple days patient was only taking in small amounts of clear liquids and unable to tolerate anything else. GI and dietary was consulted and a feeding tube was considered due to insufficient caloric intake. GI recommended endoscopy and endoscopy was performed on 12/07/2022. EGD came back normal. Abdominal ultrasound revealed inflammation of the tail the pancreas. After EGD was performed GI decided to go ahead with Dobbhoff feeding tube placement located the 3rd portion of the duodenum. Patient intermittently tried to eat with her feeding tube but did not tolerate it well. Peg tube was discussed with patient and she absolutely refused a PEG tube. Over time her abdominal pain, nausea and vomiting improved. On 12/10/2022 her Dobbhoff was clamped and liquids were introduced. Patient did well with this and her diet was advanced. On day of discharge, 12/11/2022, she tolerated a low-fat diet well with no intermittent abdominal pain. Her labs and vital signs are stable and she was medically cleared for discharge by both hospitalist team and GI. is advised the patient follow-up with her jig and fixture repairer at [place]. Time Spent with Patient Time attestation: Total time spent providing and/or coordinating discharge services: Exam Narrative: GENERAL: Comfortable, no acute distress HENMT: moist mucous membranes EYES: EOM intact b/l NECK: no lymphadenopathy RESPIRATORY: clear to auscultation CARDIO: RRR GI: soft, nontender, bowel sounds present SKIN: no rashes EXTREMITIES: no edema, redness or tenderness DS: Data Data Completed and Pending Labs on day of discharge: Labs from last 24 hours 12/11/22 12/11/22 12/11/22 07:57 06:10 05:32 WBC 6.9 RBC 4.26 Hgb 12.5 Hct 38.4 MCV 90.1 MCH 29.3 MCHC 32.6 RDW 14.6 H Plt Count 277 MPV 9.3 Sodium 137 [place]
== END 2022-12-11 12:34 | disposition home or self-care (01) | DRG 439 ==
LOC: ANHED 21:57 → ANH3MEDSUR 22:26
PROVIDERS: Internal Medicine Gastroenterology; Nurse Practitioner; Physician Assistant; Admitting Provider Internal Medicine; Emergency Provider Physician Assistant; PCP Internal Medicine; Visit Provider Internal Medicine Critical Care Medicine
PROC: 0DJ08ZZ Inspection of Upper Intestinal Tract, Via Natural or Artificial Opening Endoscopic (ICD-10-PCS; CPT 43235; principal; 2022-12-07 14:30)
DX: K85.90 Acute pancreatitis without necrosis or infection, unspecified (principal); E46 Unspecified protein-calorie malnutrition; K86.1 Other chronic pancreatitis; E87.6 Hypokalemia; E78.3 Hyperchylomicronemia; E86.0 Dehydration; E11.65 Type 2 diabetes mellitus with hyperglycemia; E03.9 Hypothyroidism, unspecified; K21.9 Gastro-esophageal reflux disease without esophagitis; E78.1 Pure hyperglyceridemia; E83.42 Hypomagnesemia; F41.9 Anxiety disorder, unspecified; E28.2 Polycystic ovarian syndrome; Z68.31 Body mass index [BMI] 31.0-31.9, adult; Z79.4 Long term (current) use of insulin
CPT/HCPCS: 36415; 43752; 71045; 74177; 76705; 80048; 80053; 81001; 82948; 83605; 83690; 83735; 84478; 84484; 85025; 85027; 87081; 93005; 96361; 96365; 96366; 96375; 96376; 97165; 99285; A9270; C9113; G0378; J1170; J1650; J1815; J1885; J2270; J2405; J2704; J2765; J3475; J3480; J7030; J7040; J7120; Q9967

== ENCOUNTER 2023-04-05 21:47 | Inpatient (IN) | payer MEDICARE, SELFPAY ==
--- NOTE | ~2023-04-05 | CT_ITS ---
EXAMINATION: CT abdomen pelvis w con DATE: 04/06/2023 21:45 INDICATION: abd pain TECHNIQUE: Computed tomography (CT) of the abdomen and pelvis was performed with 100 mL Omnipaque-350 intravenous contrast. Automated exposure control and iterative reconstruction technique were employe d. The dose-length product was 775.41 mGy-cm. COMPARISON: 623. FINDINGS: Lower thorax: Catheter tips terminate at the cavoatrial junction. Linear and subsegmental consolidati ve opacities in the bilateral dependent lower lobes and lingula Liver: Normal. Biliary/Gallbladder: Gallbladder is normal. No bile duct dilation. Pancreas: No mass or duct dilation. Spleen: Normal. Adrenals:No mass. Kidneys: No suspicious mass, obstructing stone, or hydronephrosis. Punctate left midpole nonobstructi ng calculus. Left renal ectopy. GI tract: Mild distal esophageal and gastric wall edema. No small or large bowel dilation. Appendix n ot visualized. Diverticulosis without diverticulitis. Mesentery/Peritoneum: No ascites, mass, or free air. Retroperitoneum: No mass. Atherosclerotic abdominal aortic and/or arterial calcifications. Pelvis: Interval resolution of the previously described right ovarian cyst. Trace free pelvic fluid. Absent uterus. Distended urinary bladder. No wall thickening. Soft Tissues: Soft tissues and body wall unremarkable. Bones: No acute osseous finding. IMPRESSION: Dependent atelectasis/consolidation. Mild esophagitis/gastritis. Distended urinary bladder, correlate for findings of urinary retention. Reviewed, dictated and finalized at location K. OP DEVELOPER
--- NOTE | ~2023-04-05 | XR_ITS ---
EXAMINATION: XR chest 1V portable DATE: 04/08/2023 08:28 INDICATION: COVID-19 pneumonia. TECHNIQUE: A single frontal view of the chest was obtained. COMPARISON: CT abdomen and pelvis 04/06/2023, chest single view 04/06/2023 FINDINGS: There are airspace opacities in right lower lung zone and left mid and lower lung zones. No pleural effusion or pneumothorax. The heart size is normal. There is a left internal jugular port wi th tip at the superior cavoatrial junction. There is a right internal jugular port at the superior ca voatrial junction. IMPRESSION: 1. Stable airspace opacities in right lower lung zone and left mid and lower lung zones, consistent w ith pneumonia. Reviewed, dictated and finalized at location A. PING BENCH DIE MAKER IMPRESSION: 1. Stable airspace opacities in right lower lung zone and left mid and lower barbra ng zones, consistent with pneumonia.
--- NOTE | ~2023-04-05 | XR_ITS ---
EXAMINATION: XR chest 1V portable Exam Date/Time: 04/06/2023 12:30 PELLET MACHINE OPERATOR HISTORY: cough, fever Comparison: 12/02/2022. RESULT: Lines, tubes, and devices: Left and right chest implanted ports, both terminate at the cavoatrial ju nction. Lungs and pleura: Streaky and subsegmental bilateral lower lung opacities. Cardiomediastinal silhouette: Stable. Other: No acute osseous or upper abdominal finding. IMPRESSION: Bilateral lower lung opacities may represent atelectasis or the consolidation of pneumonia/aspiration . Reviewed, dictated and finalized at location K. ET MACHINE OPERATOR IMPRESSION: Bilateral lower lung opacities may represent atelectasis or the consolidation o f pneumonia/aspiration.
[2023-04-05 21:55] VITALS: BP 95/74; PULSE 122; RESP 20; TEMP 36.6; O2SAT 96
[2023-04-06] VITALS (46 sets, daily range): BP systolic 77–154; BP diastolic 32–94; PULSE 67–103; RESP 10–26; TEMP 36.4–36.9; O2SAT 91–100; BMI 30.8
[2023-04-06] MEDS: ONDANSETRON HCL ODT 4 MG TABLET PO (00:06)
[2023-04-06 01:50] LABS: Appearance Urine Cloudy (Clear); Bacteria Urine None Seen /hpf; Bilirubin Urine Negative (Negative); Blood Urine Negative (Negative); Color Urine Yellow (Yellow); Glucose Urine UA 3+ mg/dL (Negative); Ketones Urine Trace mg/dL (Negative); Leukocyte Esterase Ur Negative LEU/UL (Negative); Need Manual Microscopic Reviewed; Nitrate Urine Negative (Negative); Non Pathogenic Casts 0-2; Protein Urine Negative (Negative); RBC Urine 0-2 /hpf (0-2); Squamous Epithelial Cell Urine Few /hpf (Few); Urobilinogen Urine 0.2 mg/dL (<2.0); WBC Urine 0-5 /hpf; pH Urine 5.5 (5.0-9.0)
[2023-04-06 01:51] LABS: Specific Grav Ur 1.041 (1.001-1.035)
[2023-04-06 02:00] LABS: Basophils Percent Auto 0.3 % (0.2-1.2); Eosinophils Percent Auto 0.4 % (0-4.4); Hematocrit 41.3 % (37.0-47.0); Hemoglobin 14.2 g/dL (12.0-15.0); Immature Granulocyte Absolute 0.03 K/mm3 (0.00-0.031); Immature Granulocyte Percent A 0.4 % (0-0.5); Lymphocytes Absolute Auto 2.15 K/mm3 (0.9-3.2); Lymphocytes Percent Auto 31.6 % (18.3-44.2); Mean Corpuscular HGB Conc 34.4 g/dl (32-36); Mean Corpuscular Hemoglobin 30.3 pg (26-34); Mean Corpuscular Volume 88.1 fl (80-100); Mean Platelet Volume 9.4 fl (7.4-10.4); Monocytes Absolute Auto 0.5 K/mm3 (0.1-0.6); Monocytes Percent Auto 6.8 % (2.6-8.5); Neutrophils Absolute Auto 4.1 K/mm3 (1.3-6.7); Neutrophils Percent Auto 60.5 % (45.5-73.1); Platelet Count Result 251 k/mm3 (150-375); Red Blood Count 4.69 M/mm3 (4.2-5.4); Red Cell Distribution Width 14.6 % (11.5-14.5); White Blood Count 6.8 K/mm3 (4.5-10.0)
[2023-04-06] MEDS: ONDANSETRON INJ 4 MG/2 ML VIAL 8 MG IV PUSH (02:01)
[2023-04-06 02:03] LABS: Add Urine Microscopic? YES
[2023-04-06] MEDS: HYDROmorphone HCL INJ (*CRX) 1 MG/ML SYR IV PUSH ×3 (02:03→06:40)
[2023-04-06] MEDS: LACTATED RINGERS 1,000 ML 999 ML IV CONT (02:04)
[2023-04-06 02:09] LABS: Alanine Aminotransferase 18 U/L (6-35); Albumin Level 4.6 g/dL (3.5-5.1); Alkaline Phosphatase 96 U/L (38-126); Anion Gap 13 mmol/L (8-16); Aspartate Amino Transferase 23 U/L (14-36); Bilirubin,Total 0.9 mg/dL (0.2-1.3); Blood Urea Nitrogen 17 mg/dL (7-17); Calcium 9.8 mg/dL (8.4-10.2); Carbon Dioxide 22 mmol/L (22-30); Chloride 101 mmol/L (98-107); Estimated CRCL calculation 105 ml/min; Estimated Glomerular Filt Rate > 60; Glucose 192 mg/dL (65-110); Lipase 123 U/L (23-300); Potassium 4.2 mmol/L (3.4-5.0); Sodium 136 mmol/L (137-145)
--- NOTE | 2023-04-06 02:36 | PC.NURSE ---
Patient stated her pain was 10/10 after the Dilaudid. EDP aware.
[2023-04-06] MEDS: KETOROLAC 15 MG/ML VIAL (*BKC) IV PUSH (03:20)
[2023-04-06 03:30] LABS: Triglycerides > 2625 mg/dL (<150)
--- NOTE | 2023-04-06 03:36 | ED.GENADULT ---
HPI - General Adult General Chief complaint: Abdominal Pain Stated complaint: ab pain Time Seen by Provider: 04/06/23 01:50 History of Present Illness HPI narrative: This is a 47-year-old female history of hypertriglyceridemia induced pancreatitis presenting with abdominal pain. Patient says that her chronic pancreatitis is always about a 2/10 but has gotten acutely worse today. Now she has a stabbing went back. Constant. She has had these episodes about every 3-4 months since 2017. No exacerbating alleviating symptoms. It is associated with nausea and vomiting. She denies fever chills chest pain difficulty breathing or diarrhea. 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buse Hypertension Mother Hypothyroid Cerebrovascular accident Grandparent Skin cancer Colon cancer Heart disease Hypothyroid Cerebrovascular accident Sibling Hypothyroid Kidney disorder Hypertension Autoimmune disorder Social History Social History Social History: Surrogate medical decision maker: José Miguel Jones, spouse. Code status: She does not have advanced directives in place. But she states she would want to be a DNR/DNI. She would be fine with pressors or central line. Smoking packs per day: 1 Smoking cigarettes per day: 20.0 Years smoked: 30 Smoking pack-years: 30.00 Smoking status: Current every day smoker Tobacco type: cigarettes Alcohol intake: never Substance use: never Substance use type: does not use Lack of Transportation: No Lack of Food: Never True Current Housing: I Have Housing Concerned About Future Housing: No Difficulty Paying Gas/Electric Bills: No Difficulty Paying for Meds: No Currently Unemployed: No Education: Associate Degree Difficulty w/ Childcare or Family Care: No Spiritual care concerns: No Exam Narrative: APPEARANCE: No apparent distress. Head: atraumatic. EYES: EOMI, NOSE: Atraumatic NECK: Trachea midline RESPIRATORY: No increased rate of breathing clear to auscultation CARDIOVASCULAR: RRR, ABDOMINAL: Tenderness to palpation with voluntary guarding epigastric area. Lower quadrants soft nontender MUSCULOSKELETAl: No obvious deformities NEURO: Alert. Moving 4/4 extremities SKIN:: Warm, dry. Normal color PSYCHIATRIC: Normal affect Course Vital Signs Vital signs: Vital Signs Temperature 97.9 F 04/05/23 21:55 Pulse Rate 122 H 04/05/23 21:55 Respiratory Rate 20 04/05/23 21:55 Blood Pressure 95/74 L 04/05/23 21:55 Pulse Oximetry 96 04/05/23 21:55 Oxygen Delivery Room Air 04/05/23 21:55 Temperature 97.9 F 04/05
[2023-04-06] MEDS: DEXTROSE 10% 1,000 ML 100 ML IV CONT ×2 (04:08→13:09)
[2023-04-06] MEDS: INSULIN HUMAN REGULAR (*BKC) 100 UNITS in SODIUM CHLORIDE 0.9% IV 99 ML 8.3 UNITS IV CONT (04:09)
[2023-04-06 04:14] LABS: Glucose Point of Care 195 mg/dl (65-105)
--- NOTE | 2023-04-06 04:40 | PC.NURSE ---
Patient's SPO2 was dropping down into the 80s. Placed patient on 2L/min O2 via nasal cannula and SPO2 was then measured at 99%.
[2023-04-06 05:24] LABS: Glucose Point of Care 188 mg/dl (65-105)
--- NOTE | 2023-04-06 05:47 | PC.NURSE ---
Patient's blood pressure was dropping to 70s/40-50s. Notified Dr. Conner who verbally ordered 2L normal saline.
[2023-04-06] MEDS: SODIUM CHLORIDE 0.9% IV 2,000 ML 999 ML IV CONT (05:55)
[2023-04-06 07:12] LABS: Glucose Point of Care 120 mg/dl (65-105)
[2023-04-06 07:28] LABS: Glucose Point of Care 133 mg/dl (65-105)
[2023-04-06] MEDS: INSULIN HUMAN REGULAR (*BKC) 100 UNITS in SODIUM CHLORIDE 0.9% IV 99 ML IV CONT (07:39)
--- NOTE | 2023-04-06 07:49 | ADMGEN ---
This patient, Casandra Jones, was admitted to Intensive Care Unit-9 at 0605. Patient/family oriented to hospital policies and general routines including ID bracelet, bed and alarms, visiting hours, pain management, procedures, bathroom and other care routines, personal items, smoking policy, room service/diet, and visiting hours. Information on how to activate the Rapid Response Team has been discussed. Patient/Family are encouraged to report perceived risks to care and to ask questions if they do not understand what they are told or what they should do.
--- NOTE | 2023-04-06 07:49 | PC.NURSE ---
dr Michaels notified of patient arrival at 0645. She states the day hospitalist will be seeing the patient.
--- NOTE | 2023-04-06 08:01 | PC.NURSE ---
Discussed code status with patient during admit process. Patient wishes to be a full code at this time. Dr Mcgrath notified.
--- NOTE | 2023-04-06 08:05 | PM.IMHP ---
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 The patient was hospitalized 11/19/2022 through 11/28/2022 for the abdominal pain and found to have recurrent acute on chronic pancreatitis.? The patient required plasmapheresis due to triglycerides greater than 2500.?? She was admitted again on 12/02/2022 due to recurrent abdominal pain but plasmapheresis was not needed during that hospitalization.?A feeding tube was considered due to insufficient caloric intake. GI consulted and EGD on 12/07/2022 was normal. Abdominal ultrasound revealed inflammation of the tail the pancreas.? PEG placement recommended but she refused a PEG tube.? She had Dobbhoff feedings until she could tolerate oral intake. was clamped and liquids were introduced.? Patient did well with this and her diet was advanced.?She was discharged on 12/11/22. Patient has been doing well since discharge. She has not been rehospitalized since November. She developed cold symptoms about 4 days prior to admission with head congestion, nasal congestion and nonproductive cough. She was also having fever to 101 and chills. She started taking Aleve cold and Sinus. No other new medications. She has chronic abdominal pain that she rates 3/10 that she was a worse with eating. She has been on pancreatic enzymes twice in the past but was told that she no longer needs them. Her stools are brown in color. No melena or hematochezia. Her stools do float and that there is a ?mucus lining? to the stool. She does knows occasional or early discharge in the water. Patient has had her flu and COVID vaccine in early February. No odynophagia, dysphagia, weight loss, back pain, dysuria, hematuria or GERD symptoms. Two days prior to admission, she noted worsening abdominal pain that has escalated to the 7-8/10. She developed headaches with nausea and vomiting. No diarrhea. This pain feels very similar to her prior hospitalizations for her hypertriglyceridemia. She present to the emergency room the steward/stewardess night hours of admission. Emergency room, her blood pressure was soft at 95/70 for and she was tachycardic to 122. She was afebrile. She was 96% on room air. CBC was normal. Comprehensive metabolic panel was normal except for sodium 136, glucose 192 and total protein of 9. Her lipase was normal at 123. Triglycerides were greater than 2625. Urinalysis was cloudy with 3+ glucose and trace ketones. She states that she has been compliant with her diabetic medications which include Tresiba 40 units subQ at night, sliding scale insulin if glucose greater than 140, metformin and Jardiance. She has a continues glucose monitor and states her glucose runs less than 160. She was given Zofran, Dilaudid, IV fluids, Toradol and Protonix. She was admitted for further care. 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
[2023-04-06] MEDS: metFORMIN HCL 500 MG TABLET 1000 MG PO ×2 (08:37→16:40)
[2023-04-06] MEDS: LEVOTHYROXINE SODIUM 100 MCG TABLET 200 MCG PO (08:37)
[2023-04-06] MEDS: PANTOPRAZOLE SODIUM IV 40 MG VIAL IV PUSH (08:37)
[2023-04-06] MEDS: FENOFIBRATE NANOCRYSTALLIZED 145 MG TABLET PO (08:37)
[2023-04-06] MEDS: EMPAGLIFLOZIN 25 MG TABLET PO (08:38)
[2023-04-06 09:14] LABS: Anion Gap 9 mmol/L (8-16); Blood Urea Nitrogen 12 mg/dL (7-17); Calcium 7.9 mg/dL (8.4-10.2); Carbon Dioxide 20 mmol/L (22-30); Chloride 108 mmol/L (98-107); Estimated CRCL calculation 124 ml/min; Estimated Glomerular Filt Rate > 60; Glucose 148 mg/dL (65-110); Potassium 3.5 mmol/L (3.4-5.0); Sodium 137 mmol/L (137-145)
[2023-04-06] MEDS: HYDROmorphone HCL INJ (*CRX) 1 MG/ML SYR 0.5 MG IV PUSH ×5 (09:47→20:56)
[2023-04-06] MEDS: ONDANSETRON INJ 4 MG/2 ML VIAL (09:48)
[2023-04-06 09:56] LABS: Glucose Point of Care 147 mg/dl (65-105)
[2023-04-06 09:57] LABS: Glucose Point of Care 159 mg/dl (65-105)
[2023-04-06] MEDS: OXYMETAZOLINE HCL 0.05% NAS 15 ML BTL (*BKC) 1 SPRAY NASAL ×2 (10:00→21:59)
[2023-04-06 10:47] LABS: Glucose Point of Care 193 mg/dl (65-105)
--- NOTE | 2023-04-06 11:08 | WPDCNINT ---
Assessment and Plan Assessment and plan (1) Hypertriglyceridemia: Code(s): E78.1 - Pure hyperglyceridemia Status: Chronic Assessment and Plan: Patient has chronic hypertriglyceridemia secondary to chylomicronemia requiring plasmapheresis in the past Currently continue insulin infusion and D10 infusion. Serial BMPs ordered to monitor electrolytes Will proceed with plasmapheresis. Consult nephrology Continue fenofibrate (2) Abdominal pain: Code(s): R10.9 - Unspecified abdominal pain Status: Acute Assessment and Plan: Patient appears to have chronic pancreatitis and her abdominal pain appears to be similar to past episodes. Her lipase is normal Abdominal exam is benign Will defer doing any imaging at this time as it would likely not global director air and climate change npo at this time Pain control (3) Hx of pancreatitis: Code(s): Z87.19 - Personal history of other diseases of the digestive system Status: Acute Assessment and Plan: History of acute on chronic pancreatitis Currently lipase LFTs and bilirubin are normal (4) Tobacco use: Code(s): Z72.0 - Tobacco use Status: Acute Assessment and Plan: Patient was counseled and encouraged to quit smoking 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 Qualified Code(s): E03.8 - Other specified hypothyroidism; E06.3 - Autoimmune thyroiditis Code(s): E03.9 - Hypothyroidism, unspecified Status: Acute Assessment and Plan: Continue levothyroxine and check TSH Plan DVT prophylaxis -on Lovenox Stress ulcer prophylaxis -PPI Nutrition - NPO Code Status - Full Code Total Critical Care Time - 30 minutes Due to a high probability of clinically significant, life threatening deterioration, the patient required my highest level of preparedness to intervene emergently and I personally spent this critical care time directly and personally managing the patient. This critical care time included obtaining a history; examining the patient; pulse oximetry; ordering and review of studies; arranging urgent treatment with development of a management plan; evaluation of patient's response to treatment; frequent reassessment; and discussions with other providers. It was exclusive of separately billable procedures and treating other patients and teaching time. Please see Assessment and Plan section and the rest of the note for further information on patient assessment and treatment [employer] Consult Note Consult date: 04/06/23 Reason for consult: Hypertriglyceridemia HPI: Casandra Jones is a 47 year old female with past medical history of chronic pancreatitis, hypertriglyceridemia related to chylomicronemia requiring plasmapheresis in the past, status post ports insertion for diaphoresis, IDDM and GERD among other medical problems who presents to the ED last night with chief complaints of abdominal pain. The patient was hospitalized 11/19/2022 through 11/28/2022 for the abdominal pain and found to have recurrent acute on chronic pancreatitis.? The patient required plasmapheresis at that time. Patient states that she has chronic pain 2 to 3/10 all the time which is sharp and crampy. She states the pain gets worse whenever she is stressed or travels. Her pain got worse over last few days rates at 8/10. She states that sharp and crampy mostly in the middle and the left side of upper abdomen but radiates to her back. She states her abdominal pain is similar to her past episodes does not feel any different this time. She did had some nausea couple of episodes of vomiting but no blood in it. She denies any chest pain shortness a breath. She did had some nasal congestion. She denies any diarrhea. No fever chills or rigors. No dysuria. All other systems were reviewed and were negative. In the ER patient had a soft blood pressure and was tachycardic. Her triglyceride levels elevated but
[2023-04-06 11:31] LABS: Glucose Point of Care 161 mg/dl (65-105)
[2023-04-06 13:14] LABS: Glucose Point of Care 158 mg/dl (65-105)
[2023-04-06] MEDS: ONDANSETRON INJ 4 MG/2 ML VIAL IV PUSH (13:15)
[2023-04-06 13:44] LABS: Glucose Point of Care 161 mg/dl (65-105)
--- NOTE | 2023-04-06 13:49 | PM.CNNEP ---
Assessment and Plan Assessment and plan (1) Chylomicronemia syndrome: Code(s): E78.3 - Hyperchylomicronemia Status: Acute Assessment and Plan: The patient has hypertriglyceridemia from hyperchylomicronemia. Her triglyceride levels are quite high. Insulin drip has not brought them down so we will do plasmapheresis today and likely also tomorrow. Will check a triglyceride level in the morning to decide. (2) Abdominal pain: Code(s): R10.9 - Unspecified abdominal pain Status: Acute Assessment and Plan: The patient has chronic pancreatitis and with the high triglycerides her abdominal pain is worse. Surprisingly, lipase is only 123. (3) Tobacco use: Code(s): Z72.0 - Tobacco use Status: Acute Assessment and Plan: She states she still smokes. She has tried to quit in the past. (4) Type 2 diabetes mellitus: Code(s): E11.9 - Type 2 diabetes mellitus without complications Status: Acute Assessment and Plan: Management per hospitalist History of Present Illness Reason for Consult Consult date: 04/06/23 Chief Complaint Chief complaint: pancreatitis History of Present Illness Narrative: Casandra is a very pleasant 47-year-old lady who has chronic hyperchylomicronemia, severely high triglycerides, chronic pancreatitis, diabetes, hypertension, chronic cigarette smoking, GERD, chronic abdominal discomfort. The patient says that her hypertriglyceridemia has been going on for a long time. Up until about a year ago she was on routine plasmapheresis but things came under better control as her sugars got under better control as well. She says that she has chronic pancreatitis and that this leads to chronic abdominal discomfort with a level of around 2 or 3. However since Saturday the patient's pain has increased substantially and when she could not take it anymore she came to the ER. In the ER she was found to have a very high triglyceride level and so is was admitted to the ICU for an insulin drip. Levels were still high this morning so renal consultation was requested for plasmapheresis. Patient has had nausea and vomiting along with her abdominal pain. No diarrhea or constipation. No fevers or chills. Review of Systems Review of Systems: All systems reviewed & are unremarkable except as noted in HPI and below Eyes: Eyes: Reports no additional eye complaints ENT: Reports system reviewed and no additional complaints, except as documented Cardiovascular: Cardiovascular: Reports no additional cardiovascular complaints Respiratory: Respiratory: Reports no additional respiratory complaints Gastrointestinal: Gastrointestinal: Reports no additional gastrointestinal complaints Musculoskeletal: Musculoskeletal: Reports no additional musculoskeletal complaints Integumentary/Breasts: Skin/Breast: Reports system reviewed and no additional complaints, except as docu Neurologic: Reports system reviewed and no additional complaints, except as documented [facility] Past Medical History Medical History Allergic rhinitis Anxiety Chronic pancreatitis Chylomicronemia syndrome GERD (gastroesophageal reflux disease) Headache Hyperlipemia Hypertriglyceridemia 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
[2023-04-06 13:50] LABS: Triglycerides 1838 mg/dL (<150)
[2023-04-06] MEDS: POTASSIUM CHLORIDE INJ 40 MEQ in SODIUM CHLORIDE 0.9% IV 500 ML 130 MEQ IVPB (14:23)
[2023-04-06] MEDS: POTASSIUM CHLORIDE 20 MEQ ER TABLET PO (14:23)
[2023-04-06 14:33] LABS: Glucose Point of Care 165 mg/dl (65-105)
[2023-04-06] MEDS: CALCIUM GLUC 2,000 MG/NS 100ML 2,000 MG/100 ML BAG 100 MG IVPB (15:39)
[2023-04-06] MEDS: SODIUM CHLORIDE 0.9% IV 1,000 ML 999 ML IV CONT (15:39)
[2023-04-06 15:41] LABS: Glucose Point of Care 148 mg/dl (65-105)
[2023-04-06] MEDS: HEPARIN SODIUM, PORCINE 10,000 UNITS/10 ML VIAL 10000 UNITS XX (17:06)
[2023-04-06 17:39] LABS: Glucose Point of Care 131 mg/dl (65-105)
[2023-04-06 17:39] LABS: Glucose Point of Care 142 mg/dl (65-105)
[2023-04-06 18:31] LABS: Glucose Point of Care 128 mg/dl (65-105)
[2023-04-06 19:15] LABS: Glucose Point of Care 137 mg/dl (65-105)
[2023-04-06 19:19] LABS: Basophils Percent Auto 0.3 % (0.2-1.2); Eosinophils Percent Auto 0.6 % (0-4.4); Hematocrit 38.5 % (37.0-47.0); Hemoglobin 12.4 g/dL (12.0-15.0); Immature Granulocyte Absolute 0.04 K/mm3 (0.00-0.031); Immature Granulocyte Percent A 0.6 % (0-0.5); Lymphocytes Absolute Auto 2.24 K/mm3 (0.9-3.2); Lymphocytes Percent Auto 31.2 % (18.3-44.2); Mean Corpuscular HGB Conc 32.2 g/dl (32-36); Mean Corpuscular Hemoglobin 29.2 pg (26-34); Mean Corpuscular Volume 90.6 fl (80-100); Mean Platelet Volume 9.3 fl (7.4-10.4); Monocytes Absolute Auto 0.4 K/mm3 (0.1-0.6); Monocytes Percent Auto 5.7 % (2.6-8.5); Neutrophils Absolute Auto 4.4 K/mm3 (1.3-6.7); Neutrophils Percent Auto 61.6 % (45.5-73.1); Platelet Count Result 168 k/mm3 (150-375); Red Blood Count 4.25 M/mm3 (4.2-5.4); Red Cell Distribution Width 14.8 % (11.5-14.5); White Blood Count 7.2 K/mm3 (4.5-10.0)
[2023-04-06 19:30] LABS: Anion Gap 6 mmol/L (8-16); Blood Urea Nitrogen 7 mg/dL (7-17); Calcium 7.8 mg/dL (8.4-10.2); Carbon Dioxide 20 mmol/L (22-30); Chloride 111 mmol/L (98-107); Estimated CRCL calculation 151 ml/min; Estimated Glomerular Filt Rate > 60; Glucose 144 mg/dL (65-110); Magnesium 1.7 mg/dL (1.6-2.3); Phosphorus 4.1 mg/dL (2.5-4.5); Potassium 4.4 mmol/L (3.4-5.0); Sodium 137 mmol/L (137-145); Triglycerides 433 mg/dL (<150)
[2023-04-06 20:28] LABS: Glucose Point of Care 158 mg/dl (65-105)
[2023-04-06 21:04] LABS: Anion Gap 7 mmol/L (8-16); Blood Urea Nitrogen 6 mg/dL (7-17); Calcium 8.1 mg/dL (8.4-10.2); Carbon Dioxide 22 mmol/L (22-30); Chloride 109 mmol/L (98-107); Estimated CRCL calculation 124 ml/min; Estimated Glomerular Filt Rate > 60; Glucose 150 mg/dL (65-110); Potassium 4.5 mmol/L (3.4-5.0); Sodium 138 mmol/L (137-145)
[2023-04-06] MEDS: INSULIN GLARGINE (*BKC) 100 UNITS/ML 20 UNITS SUB-Q (21:22)
[2023-04-06] MEDS: traZODone HCL 50 MG TABLET 200 MG BY MOUTH (21:58)
--- NOTE | 2023-04-06 22:08 | PC.NURSE ---
patient transferred to and from CT per ambulance per nurse.
--- NOTE | 2023-04-06 22:16 | PC.NURSE ---
Call received with Gomez OLGUIN from [facility]; since triglycerides are below 500 she doesn't anticipate a need for another treatment but will have her team call back in the morning to check the AM level to see if treatment is warranted.
[2023-04-06] MEDS: ALBUMIN HUMAN 5% 25 GM/500 ML BTL IV CONT (23:12)
[2023-04-07] VITALS (12 sets, daily range): BP systolic 85–141; BP diastolic 38–85; PULSE 69–90; RESP 12–22; TEMP 36.6–37.2; O2SAT 93–100
[2023-04-07 00:58] LABS: Glucose Point of Care 145 mg/dl (65-105)
[2023-04-07] MEDS: LACTATED RINGERS 1,000 ML 75 ML IV CONT ×2 (03:32→17:30)
[2023-04-07] MEDS: HYDROmorphone HCL INJ (*CRX) 1 MG/ML SYR 0.5 MG IV PUSH ×7 (03:33→23:25)
[2023-04-07 04:30] LABS: Glucose Point of Care 168 mg/dl (65-105)
[2023-04-07 04:54] LABS: Hematocrit 35.3 % (37.0-47.0); Hemoglobin 11.4 g/dL (12.0-15.0); Mean Corpuscular HGB Conc 32.3 g/dl (32-36); Mean Corpuscular Hemoglobin 29.4 pg (26-34); Mean Platelet Volume 9.5 fl (7.4-10.4); Platelet Count Result 175 k/mm3 (150-375); Red Blood Count 3.88 M/mm3 (4.2-5.4); Red Cell Distribution Width 14.8 % (11.5-14.5); White Blood Count 5.9 K/mm3 (4.5-10.0)
[2023-04-07 05:03] LABS: Hemoglobin A1C 9.3 % (<5.7)
[2023-04-07 05:13] LABS: Albumin Level 4.4 g/dL (3.5-5.1); Anion Gap 6 mmol/L (8-16); Blood Urea Nitrogen 4 mg/dL (7-17); Calcium 8.2 mg/dL (8.4-10.2); Carbon Dioxide 22 mmol/L (22-30); Chloride 109 mmol/L (98-107); Estimated CRCL calculation 125 ml/min; Estimated Glomerular Filt Rate > 60; Glucose 152 mg/dL (65-110); Magnesium 1.7 mg/dL (1.6-2.3); Phosphorus 3.7 mg/dL (2.5-4.5); Sodium 137 mmol/L (137-145)
[2023-04-07 05:42] LABS: Vitamin D 25 Hydroxy 17.7 ng/mL
[2023-04-07 05:44] LABS: Triglycerides 597 mg/dL (<150)
[2023-04-07] MEDS: LEVOTHYROXINE SODIUM 100 MCG TABLET 200 MCG PO (07:02)
--- NOTE | 2023-04-07 09:03 | PM.IMPN ---
Progress Note: A&P Assessment and Plan (1) Hypertriglyceridemia: Code(s): E78.1 - Pure hyperglyceridemia Status: Chronic Assessment and Plan: Triglyceride level was greater than 2625.? 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 She has required plasmapheresis in the past Most likely contributing to her abdominal pain and other symptoms.? Insulin infusion and D10 infusion. Serial BMPs ordered to monitor electrolytes. Nephrology consulted and plasmapheresis performed? Serial triglyceride levels are mostly trending down. Insulin off now. Discussed with shift foreman.? Continue fenofibrate and Crestor Follow TG levels (2) Abdominal pain: Code(s): R10.9 - Unspecified abdominal pain Status: Acute Assessment and Plan: Patient with mostly upper abdominal pain.? Probably related to hypertriglyceridemia and pancreatitis despite the normal lipase.? She does have chronic pancreatitis and symptoms of malabsorption. CT abdomen pelvis showing gastritis/esophagitis and urinary bladder distention. Pancreas appeared normal. Still with abd pain. Continue Protonix. Repeat Lipase. Diet started (3) Hx of pancreatitis: Code(s): Z87.19 - Personal history of other diseases of the digestive system Status: Acute Assessment and Plan: Patient has a history pancreatitis with prior imaging showing chronic pancreatitis.? She does have symptoms of fat malabsorption but denies any weight loss.? PT normal with only mildly elevated PTT to suggest appropriate vitamin K absorption.? Vitamin-D level low and replacement ordered. Check Vitamin E and A; fecal fat (4) Insulin dependent diabetes mellitus: Status: Chronic Assessment and Plan: A1c 9.3. The patient's blood glucose was reviewed on 04/07 Glucose remains well controlled. Patient NPO currently.? Continue AccuCheks covering with sliding scale. Hypoglycemia protocol available as needed. Continue to monitor Start clear liquids. (5) Viral URI with cough: Code(s): J06.9 - Acute upper respiratory infection, unspecified Status: Acute Assessment and Plan: Patient with cold and cough symptoms prior to admission.? Also having fevers and myalgias.? CXR showing bilateral lower lung opacities. CT of the abdomen showed linear and subsegmental consolidative opacities the bilateral dependent lower lobes and lingula. No fevers here. White count normal and remains normal. Will check influenza and COVID swabs.? Consider antibiotics if viral workup negative (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 Status: Acute Assessment and Plan: As above. 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 The patient was hospitalized 11/19/2022 through 11/28/2022 for the abdominal pain and found to have recurrent acute on chronic pancreatitis.? The patient required plasmapheresis due to triglycerides greater than 2500.?? No problems overnight. Abdominal pain is without change. No nausea or vomiting and was able tolerate small amounts of clear liquid. No chest pain or shortness of breath. Exam Narrative: AF 98
[2023-04-07] MEDS: metFORMIN HCL 500 MG TABLET 1000 MG PO ×2 (09:49→16:44)
[2023-04-07] MEDS: buPROPion HCL SR (12 HR) 150 MG TAB PO (09:50)
[2023-04-07] MEDS: CHOLECALCIFEROL 1,000 UNITS TABLET 1000 UNITS PO (09:50)
[2023-04-07] MEDS: ROSUVASTATIN 10 MG TABLET 30 MG PO (09:50)
[2023-04-07] MEDS: FENOFIBRATE NANOCRYSTALLIZED 145 MG TABLET PO (09:50)
[2023-04-07] MEDS: EMPAGLIFLOZIN 25 MG TABLET PO (09:50)
[2023-04-07] MEDS: PANTOPRAZOLE SODIUM IV 40 MG VIAL IV PUSH (09:50)
[2023-04-07] MEDS: ONDANSETRON INJ 4 MG/2 ML VIAL IV PUSH (09:53)
[2023-04-07 10:17] LABS: Glucose Point of Care 187 mg/dl (65-105)
--- NOTE | 2023-04-07 10:47 | WPDINTPN ---
Progress Note: A&P Assessment and Plan (1) Hypertriglyceridemia: Code(s): E78.1 - Pure hyperglyceridemia Status: Chronic Assessment and Plan: Patient has chronic hypertriglyceridemia secondary to chylomicronemia requiring plasmapheresis in the past She received plasmapheresis and now off of insulin infusion and D10 infusion. Triglyceride level less than 1000 Plan to recheck triglyceride again tomorrow and re-evaluate for another session of plasmapheresis if needed Continue fenofibrate and statin (2) Abdominal pain: Code(s): R10.9 - Unspecified abdominal pain Status: Acute Assessment and Plan: Patient appears to have chronic pancreatitis and her abdominal pain appears to be similar to past episodes. Her lipase is normal Abdominal exam is benign CT abdomen pelvis Dependent atelectasis/consolidation. Mild esophagitis/gastritis. Distended urinary bladder, correlate for findings of urinary retention. Continue Pain control Advance diet as tolerated PPI (3) Hx of pancreatitis: Code(s): Z87.19 - Personal history of other diseases of the digestive system Status: Acute Assessment and Plan: History of acute on chronic pancreatitis Currently lipase LFTs and bilirubin are normal (4) Tobacco use: Code(s): Z72.0 - Tobacco use Status: Acute Assessment and Plan: Patient was counseled and encouraged to quit smoking 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 Qualified Code(s): E03.8 - Other specified hypothyroidism; E06.3 - Autoimmune thyroiditis Code(s): E03.9 - Hypothyroidism, unspecified Status: Acute Assessment and Plan: Continue levothyroxine and normal TSH Plan DVT prophylaxis -on Lovenox Stress ulcer prophylaxis -PPI Nutrition -advance diet as tolerated starting with liquid Code Status - Full Code Incentive spirometry, up in chair Transfer out of ICU today Subjective Date/time seen: 04/07/23 Overnight events reviewed. Patient had present pheresis done yesterday. She states she feels overall better but still has some abdominal pain. She had some nausea but no vomiting. She rates her abdominal pain at 3/10 this morning. She would like to try some liquid diet. 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 The patient was hospitalized 11/19/2022 through 11/28/2022 for the abdominal pain and found to have recurrent acute on chronic pancreatitis.? The patient required plasmapheresis due to triglycerides greater than 2500.?? Review of Systems Review of Systems: All systems reviewed & are unremarkable except as noted in HPI and below (HPI) Objective Data Vital Signs Vital Signs: Vital Signs - 24 hr 04/06/23 11:43 04/06/23 12:00 04/06/23 12:00 Temperature 36.8 C Pulse Rate 73 78 Respiratory Rate 10 L Blood Pressure 96/76 L Pulse Oximetry 97 97 Oxygen Delivery Nasal Cannula Oxygen Flow Rate 2 04/06/23 14:00 04/06/23 14:00 04/06/23 16:00 Temperature 36.6 C 36.6 C Pulse Rate 74 74 86 Respiratory Rate 26 H 13 Blood Pressure 85/57 L 94/51 L Pulse Oximetry 95 98 Oxygen Delivery Oxygen Flow Rate 04/06/23 15:39 04/06/23 18:00 04/06/23 16:00 Temperature 36.5 C Pulse Rate 75 81 Respiratory Rate 14 12 Blood Pressure 106/58 L 100/62 Pulse Oximetry 99 98 97 Oxygen Delivery Nasal Cannula Oxygen Flow Rate 2 04/06/23 18:00 04/06/23 18:15 04/06/23 16:00 Temperature 36.6 C Pulse Rate 88 80 80 Respiratory Rate 19 12 Blood Pressure 110/44 L 105/67 Pulse Oximetry 97 98 Oxygen Delivery Oxygen Flow Rate 04/06/23 18:00 04/06/23 18:38 04/06/23 20:00 Temperature Pulse Rate 88 79 80 Respiratory R
--- NOTE | 2023-04-07 11:00 | PC.NURSE ---
This patient, Casandra Jones, was received from ICU 9 on 04/07/23 at 1100. Patient/family oriented to unit policies and routines
--- NOTE | 2023-04-07 11:07 | PC.NURSE ---
Pt transferred to 3 med/surg. All belongings with pt.
[2023-04-07 12:41] LABS: Lipase 59 U/L (23-300)
--- NOTE | 2023-04-07 13:11 | PM.PNNEP ---
Progress Note: A&P Assessment and Plan (1) Chylomicronemia syndrome: Code(s): E78.3 - Hyperchylomicronemia Status: Acute Assessment and Plan: The patient has hypertriglyceridemia from hyperchylomicronemia. Her triglyceride levels are improved. todays level is below 600. since belly is better, hold off on another plasmapheresis and recheck labs tomorrow. (2) Abdominal pain: Code(s): R10.9 - Unspecified abdominal pain Status: Acute Assessment and Plan: The patient has chronic pancreatitis (3) Tobacco use: Code(s): Z72.0 - Tobacco use Status: Acute Assessment and Plan: She states she still smokes. She has tried to quit in the past. (4) Type 2 diabetes mellitus: Code(s): E11.9 - Type 2 diabetes mellitus without complications Status: Acute Assessment and Plan: Management per hospitalist Subjective Date/time seen: 04/07/23 13:11 Interval history: alert. still in pain but better than yesterday Review of Systems Cardiovascular: Cardiovascular: Reports no additional cardiovascular complaints Respiratory: Respiratory: Reports no additional respiratory complaints Gastrointestinal: Gastrointestinal: Reports no additional gastrointestinal complaints Genitourinary: Genitourinary: Reports no additional female genitourinary complaints Exam Narrative: WDWN in NAD skin no rash head ncat lungs clear cor reg no rub abd BS+ mildly tender and soft ext no edema. Objective Data Vital Signs Vital Signs: Vital Signs - 24 hr 04/06/23 14:00 04/06/23 14:00 04/06/23 16:00 Temperature 97.8 F 97.8 F Pulse Rate 74 74 86 Respiratory Rate 26 H 13 Blood Pressure 85/57 L 94/51 L Pulse Oximetry 95 98 Oxygen Delivery Oxygen Flow Rate 04/06/23 15:39 04/06/23 18:00 04/06/23 16:00 Temperature 97.7 F Pulse Rate 75 81 Respiratory Rate 14 12 Blood Pressure 106/58 L 100/62 Pulse Oximetry 99 98 97 Oxygen Delivery Nasal Cannula Oxygen Flow Rate 2 04/06/23 18:00 04/06/23 18:15 04/06/23 16:00 Temperature 97.9 F Pulse Rate 88 80 80 Respiratory Rate 19 12 Blood Pressure 110/44 L 105/67 Pulse Oximetry 97 98 Oxygen Delivery Oxygen Flow Rate 04/06/23 18:00 04/06/23 18:38 04/06/23 20:00 Temperature Pulse Rate 88 79 80 Respiratory Rate Blood Pressure Pulse Oximetry Oxygen Delivery Oxygen Flow Rate 04/06/23 20:00 04/06/23 20:45 04/06/23 22:00 Temperature 98.4 F Pulse Rate 79 83 Respiratory Rate 17 Blood Pressure 104/58 L Pulse Oximetry 99 91 Oxygen Delivery Room Air Oxygen Flow Rate 04/06/23 22:00 04/06/23 22:15 04/06/23 22:30 Temperature Pulse Rate 83 Respiratory Rate 13 Blood Pressure 95/83 L 86/48 L 86/56 L Pulse Oximetry 97 Oxygen Delivery Oxygen Flow Rate 04/06/23 22:45 04/06/23 23:00 04/06/23 23:30 Temperature Pulse Rate Respiratory Rate Blood Pressure 85/41 L 77/32 L 80/35 L Pulse Oximetry Oxygen Delivery Oxygen Flow Rate 04/07/23 00:00 04/07/23 00:30 04/07/23 00:00 Temperature Pulse Rate 75 69 Respiratory Rate 19 Blood Pressure 85/38 L 110/45 L Pulse Oximetry 99 Oxygen Delivery Oxygen Flow Rate 04/07/23 00:45 04/07/23 02:00 04/07/23 02:00 Temperature Pulse Rate 75 79 78 Respiratory Rate 22 H 14 Blood Pressure 108/78 Pulse Oximetry 100 99 Oxygen Delivery Nasal Cannula Oxygen Flow Rate 2 04/07/23 03:59 04/07/23 03:59 04/07/23 04:00 Temperature 98.9 F Pulse Rate 85 87 90 Respiratory Rate 12 13 Blood Pressure 104/50 L Pulse Oximetry 93 93 Oxygen Delivery Nasal Cannula Oxygen Flow Rate 2 04/07/23 06:00 04/07/23 06:00 04/07/23 08:00 Temperature 98.7 F Pulse Rate 88 88 88 Respiratory Rate 15 13 Blood Pressure 93/51 L 105/56 L Pulse Oximetry 97 95 Oxygen Delivery Oxygen Flow Rate 04/07/23 08:00 04/07/23 10:00
--- NOTE | 2023-04-07 14:06 | PM.IMPN ---
Progress Note: A&P Assessment and Plan (1) Hypertriglyceridemia: Code(s): E78.1 - Pure hyperglyceridemia Status: Chronic Assessment and Plan: Triglyceride level was greater than 2625.? 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 She has required plasmapheresis in the past Most likely contributing to her abdominal pain and other symptoms.? Insulin infusion and D10 infusion. Serial BMPs ordered to monitor electrolytes. Nephrology consulted and plasmapheresis performed? Continue fenofibrate and Crestor pt appears stable transferred to the medical floor today will follow triglyceride levels (2) Abdominal pain: Code(s): R10.9 - Unspecified abdominal pain Status: Acute Assessment and Plan: Patient with mostly upper abdominal pain.? Probably related to hypertriglyceridemia and pancreatitis despite the normal lipase.? She does have chronic pancreatitis pt has no abdominal pains today CT abdomen pelvis showing gastritis/esophagitis and urinary bladder distention. Pancreas appeared normal. advance diet as tolerated follow lipase levels (3) Hx of pancreatitis: Code(s): Z87.19 - Personal history of other diseases of the digestive system Status: Acute Assessment and Plan: Patient has a history pancreatitis with prior imaging showing chronic pancreatitis.? She does have symptoms of fat malabsorption but denies any weight loss.? PT normal with only mildly elevated PTT to suggest appropriate vitamin K absorption.? Vitamin-D level low and replacement ordered. Check Vitamin E and A; fecal fat (4) Insulin dependent diabetes mellitus: Status: Chronic Assessment and Plan: A1c 9.3. The patient's blood glucose was reviewed on 04/07 can advance diet today (5) Viral URI with cough: Code(s): J06.9 - Acute upper respiratory infection, unspecified Status: Acute Assessment and Plan: Patient with cold and cough symptoms prior to admission.? Also having fevers and myalgias.? CXR showing bilateral lower lung opacities. CT of the abdomen showed linear and subsegmental consolidative opacities the bilateral dependent lower lobes and lingula. 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 Continue levothyroxine (8) Tobacco use: Code(s): Z72.0 - Tobacco use Status: Acute Assessment and Plan: Patient was educated about the benefits of smoking cessation Plan DVT prophylaxis - Lovenox Stress ulcer prophylaxis -PPI Nutrition - Clears Code Status - Full Code Subjective Date/time seen: 04/07/23 14:06 Interval history: 47yo female with chronic pancreatitis, 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 The patient was hospitalized 11/19/2022 through 11/28/2022 for the abdominal pain and found to have recurrent acute on chronic pancreatitis.? The patient required plasmapheresis due to triglycerides greater than 2500.?? Pt doing much better transferred to medical floor no specific complaints Review of Systems Review of Systems: Doing better Exam Narrative: Gen - Awake alert answering questions appropriately Chest - Chest clear lung machuca, Right upper chest port clean CV - RRR. S1-S2. Abd - soft, ND, mild upper abdominal pain, +BS Ext - no pedal edema Neuro - no neurological deficits Skin - warm and dry. Objective Data Vital Signs Vital Signs: Vital Signs - 24 hr
[2023-04-07 16:32] LABS: Glucose Point of Care 100 mg/dl (65-105)
[2023-04-07 21:04] LABS: Influenza A QL RT-PCR Negative (Negative); Influenza B QL RT-PCR Negative (Negative); RSV RNA, RT-PCR Negative (Negative); SARS-CoV-2 RNA PCR Positive (Negative)
[2023-04-07 21:04] LABS: Glucose Point of Care 137 mg/dl (65-105)
[2023-04-07 21:26] LABS: Glucose Point of Care 146 mg/dl (65-105)
[2023-04-07] MEDS: INSULIN GLARGINE (*BKC) 100 UNITS/ML 20 UNITS SUB-Q (21:36)
[2023-04-07] MEDS: traZODone HCL 50 MG TABLET 100 MG BY MOUTH (21:37)
[2023-04-07 23:24] LABS: Glucose Point of Care 155 mg/dl (65-105)
[2023-04-08] MEDS: HYDROmorphone HCL INJ (*CRX) 1 MG/ML SYR 0.5 MG IV PUSH ×7 (02:28→22:05)
[2023-04-08 03:57] LABS: Glucose Point of Care 120 mg/dl (65-105)
[2023-04-08 06:00] VITALS: BP 103/50; PULSE 77; RESP 16; TEMP 36.6; O2SAT 99
[2023-04-08] MEDS: LEVOTHYROXINE SODIUM 100 MCG TABLET 200 MCG PO (06:03)
[2023-04-08 06:31] LABS: Hematocrit 35.9 % (37.0-47.0); Hemoglobin 11.5 g/dL (12.0-15.0); Mean Corpuscular Hemoglobin 29.3 pg (26-34); Mean Corpuscular Volume 91.3 fl (80-100); Mean Platelet Volume 9.3 fl (7.4-10.4); Platelet Count Result 175 k/mm3 (150-375); Red Blood Count 3.93 M/mm3 (4.2-5.4); Red Cell Distribution Width 14.5 % (11.5-14.5); White Blood Count 5.1 K/mm3 (4.5-10.0)
[2023-04-08 06:49] LABS: Alanine Aminotransferase 9 U/L (6-35); Alkaline Phosphatase 41 U/L (38-126); Anion Gap 5 mmol/L (8-16); Aspartate Amino Transferase 18 U/L (14-36); Bilirubin,Total 0.6 mg/dL (0.2-1.3); Blood Urea Nitrogen 6 mg/dL (7-17); Carbon Dioxide 29 mmol/L (22-30); Chloride 104 mmol/L (98-107); Estimated CRCL calculation 125 ml/min; Estimated Glomerular Filt Rate > 60; Glucose 113 mg/dL (65-110); Lipase 49 U/L (23-300); Magnesium 1.8 mg/dL (1.6-2.3); Phosphorus 4.2 mg/dL (2.5-4.5); Potassium 3.7 mmol/L (3.4-5.0); Sodium 138 mmol/L (137-145)
[2023-04-08 07:32] LABS: Triglycerides 611 mg/dL (<150)
[2023-04-08 07:58] LABS: Glucose Point of Care 101 mg/dl (65-105)
[2023-04-08 08:08] LABS: CRP 1.6 mg/dL (<1.0)
[2023-04-08] MEDS: metFORMIN HCL 500 MG TABLET 1000 MG PO ×2 (09:42→17:42)
[2023-04-08] MEDS: EMPAGLIFLOZIN 25 MG TABLET PO (09:42)
[2023-04-08] MEDS: FENOFIBRATE NANOCRYSTALLIZED 145 MG TABLET PO (09:42)
[2023-04-08] MEDS: CHOLECALCIFEROL 1,000 UNITS TABLET 1000 UNITS PO (09:42)
[2023-04-08] MEDS: buPROPion HCL SR (12 HR) 150 MG TAB PO (09:42)
[2023-04-08] MEDS: ROSUVASTATIN 10 MG TABLET 30 MG PO (09:42)
[2023-04-08 09:43] VITALS: O2SAT 96
[2023-04-08] MEDS: ENOXAPARIN 40 MG/0.4 ML SYRINGE SUB-Q (09:43)
[2023-04-08] MEDS: PANTOPRAZOLE SODIUM IV 40 MG VIAL IV PUSH (09:43)
[2023-04-08] MEDS: ONDANSETRON INJ 4 MG/2 ML VIAL IV PUSH ×2 (09:55→18:45)
[2023-04-08] MEDS: REMDESIVIR 200 MG/NS 250 ML 200 MG/250 ML BAG 250 MG IVPB (10:18)
[2023-04-08 11:16] LABS: Lactate Dehydrogenase 123 U/L (120-246)
--- NOTE | 2023-04-08 11:25 | PM.IMPN ---
Progress Note: A&P Assessment and Plan (1) Hypertriglyceridemia: Code(s): E78.1 - Pure hyperglyceridemia Status: Chronic Assessment and Plan: Triglyceride level was greater than 2625.? 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 She has required plasmapheresis in the past Most likely contributing to her abdominal pain and other symptoms.? She was started on insulin infusion and D10 infusion. Nephrology consulted and plasmapheresis performed? Insulin and dextrose off now. Serial triglyceride levels improved with plasmapheresis but now up to 611 Continue fenofibrate and Crestor Follow TG levels Appreciate nephrology input. Would hold on repeat plasmapheresis for now (2) COVID: Code(s): U07.1 - COVID-19 Status: Acute Assessment and Plan: Patient with cold and cough symptoms prior to admission (sx began 04/02).? Also having fevers and myalgias.? CXR showing bilateral lower lung opacities. CT of the abdomen showed linear and subsegmental consolidative opacities the bilateral dependent lower lobes and lingula. No fevers here. White count normal and remains normal. Influenza and RSV PCR negative. COVID PCR positive. ? Start Remdesivir given the o2 requirement and risk factors CXR today showing stable RLL, LLL and left mid lung airspace disease Encouraged her to use the IS Given that she is on low dose O2 (2L this mornig but now RA), will hold dexamethasone since CRP 1.6 and that she has DM. Monitor (3) Abdominal pain: Code(s): R10.9 - Unspecified abdominal pain Status: Acute Assessment and Plan: Patient with mostly upper abdominal pain.? Probably related to hypertriglyceridemia and pancreatitis despite the normal lipase.? She does have chronic pancreatitis and symptoms of malabsorption. CT abdomen pelvis showing gastritis/esophagitis and urinary bladder distention. Pancreas appeared normal. Still with abd pain. No diarrhea. Consider related to COVID? Continue Protonix. Diet started and toelrating Follow (4) Hx of pancreatitis: Code(s): Z87.19 - Personal history of other diseases of the digestive system Status: Acute Assessment and Plan: Patient has a history pancreatitis with prior imaging showing chronic pancreatitis.? She does have symptoms of fat malabsorption but denies any weight loss.? PT normal with only mildly elevated PTT to suggest appropriate vitamin K absorption.? Vitamin-D level low and replacement ordered. Follow (5) Insulin dependent diabetes mellitus: Status: Chronic Assessment and Plan: A1c 9.3. The patient's blood glucose was reviewed on 04/08 Glucose remains well controlled. Continue AccuCheks covering with sliding scale. Hypoglycemia protocol available as needed. Continue to monitor Diet being advanced. (6) Viral URI with cough: Code(s): J06.9 - Acute upper respiratory infection, unspecified Status: Acute Assessment and Plan: As above (7) Chylomicronemia syndrome: Code(s): E78.3 - Hyperchylomicronemia Status: Acute Assessment and Plan: As above. 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 Continue levothyroxine (9) Tobacco use: Code(s): Z72.0 - Tobacco use Status: Acute Assessment and Plan: Patient was educated about the benefits of smoking cessation Plan DVT prophylaxis - Lovenox Stress ulcer prophylaxis -PPI Nutrition - Clears Code Status - Full Code Subjective Date/time seen: 04/08/23 11:25 Interval history: 47yo female with chronic pancreatitis, hyperTG related to chylomicronemia, IDDM and GERD who presents to the ED with complaints of abdominal
[2023-04-08 11:40] LABS: Glucose Point of Care 117 mg/dl (65-105)
--- NOTE | 2023-04-08 12:07 | PM.PNNEP ---
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 started on insulin infusion and D10 infusion but with minmal improvement improvement noted s/p plasmapheresis (on 04/06) goal achieved - TG level < 600 TG level 611 by AM labs hold further plasmapheresis at this time follow trend of repeat triglyceride levels continue ongoing medical therapy back on fenofibrate + statin (2) COVID: Code(s): U07.1 - COVID-19 Status: Acute Assessment and Plan: COVID PCR test positive symptoms included cold and cough along with fevers and myalgias CXR showing bilateral lower lung opacities. CT of the abdomen showed linear and subsegmental consolidative opacities the bilateral dependent lower lobes and lingula started on remdesivir given need for supplemental oxygen and risk factors steroids on hold for now (3) Hx of pancreatitis: Code(s): Z87.19 - Personal history of other diseases of the digestive system Status: Acute Assessment and Plan: as noted on prior imaging showing chronic pancreatitis supportive therapy (4) Insulin dependent diabetes mellitus: Status: Chronic Assessment and Plan: poor control at baseline (based on HgbA1c) follow accu-cheks glycemic control per hospitalists Will continue to follow. Subjective Date/time seen: 04/08/23 12:07 Interval history: Follow-up for hypertriglyceridemia. Chart reviewed; assumimg care from Dr. Lowry; triglyceride levels have improved and appear relatively stable following recent plasmapheresis session/treatment; still with some nausea and abdominal pain present; however, able to eat some without any worsening abdominal pain. Exam Narrative: General: WD/WN female in NAD Heart: normal S1 and S2; no rub Lungs: clear to auscultation Abdomen: soft, mild TTP; positive bowel sounds Extremities: no cyanosis or clubbing; trace edema Skin: warm and dry Objective Data Vital Signs Vital Signs: Vital Signs Temp Pulse Resp BP Pulse Ox O2 Del Method 04/08/23 12:00 97.4 F L 97 16 124/73 100 04/08/23 09:43 96 Room Air 04/08/23 06:00 97.9 F 77 16 103/50 L 99 12/10/23 21:52 97.9 F 85 18 141/85 H 96 Intake/Output Intake/Output: Intake & Output 04/05/23 04/06/23 04/07/23 04/08/23 23:59 23:59 23:59 23:59 Intake Total 7798 2062 1340 Output Total 850 1100 Balance 6948 962 1340 Meds/Results Medications: Active Medications Generic Name Dose Route Start Last Admin Trade Name Freq PRN Reason Stop Dose Admin Bupropion HCl 150 mg 04/07/23 09:00 04/08/23 09:42 Bupropion Hcl Sr (12 Hr) 150 Mg Tab PO 150 mg DAILY RAPHAEL Administration Dextrose 12.5 gm 04/06/23 09:39 Dextrose 50% 25 Gm/50 Ml Syringe IV PUSH PRN PRN Hypoglycemia Protocol Empagliflozin 25 mg 04/06/23 09:00 04/08/23 09:42 Empagliflozin 25 Mg Tablet PO 25 mg DAILY RAPHAEL Administration Enoxaparin Sodium 40 mg 04/08/23 09:00 04/08/23 09:43 Enoxaparin 40 Mg/0.4 Ml Syringe SUB-Q 40 mg DAILY RAPHAEL Administration Fenofibrate 145 mg 04/06/23 09:00 04/08/23 09:42 Fenofibrate Nanocrystallized 145 Mg Tablet PO 145 mg QAM RAPHAEL Administration Glucagon 1 mg 04/06/23 09:39 Glucagon For Inj 1 Mg Vial IM PRN PRN Hypoglycemia Protocol Glucose 15 gm 04/06/23 09:39 Glucose Oral Gel 15 Gm Of Glucse In 37.5 Gm Tube PO PRN PRN Hypoglycemia Protocol Hydromorphone HCl 0.5 mg 04/06/23 09:08 04/08/23 15:23 Hydromorphone Hcl Inj (*Crx) 1 Mg/Ml Syr IV PUSH 0.5 mg Q3H PRN Administration Pain Rated 7-10 Dextrose 1,000 mls @ 100 mls/hr 04/06
--- NOTE | 2023-04-08 12:07 | P.PNNP_ITS ---
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 * started on insulin infusion and D10 infusion but with minmal improvement * improvement noted s/p plasmapheresis (on 04/06) * goal achieved - TG level < 600 * TG level 611 by AM labs * hold further plasmapheresis at this time * follow trend of repeat triglyceride levels * continue ongoing medical therapy * back on fenofibrate + statin (2) COVID: Code(s): U07.1 - COVID-19 Status: Acute Assessment and Plan: * COVID PCR test positive * symptoms included cold and cough along with fevers and myalgias * CXR showing bilateral lower lung opacities. * CT of the abdomen showed linear and subsegmental consolidative opacities the bilateral dependent lower lobes and lingula * started on remdesivir given need for supplemental oxygen and risk factors * steroids on hold for now (3) Hx of pancreatitis: Code(s): Z87.19 - Personal history of other diseases of the digestive system Status: Acute Assessment and Plan: * as noted on prior imaging showing chronic pancreatitis * supportive therapy (4) Insulin dependent diabetes mellitus: Status: Chronic Assessment and Plan: * poor control at baseline (based on HgbA1c) * follow accu-cheks * glycemic control per hospitalists Will continue to follow. Subjective Date/time seen: 04/08/23 12:07 Interval history: Follow-up for hypertriglyceridemia. Chart reviewed; assumimg care from Dr. Lowry; triglyceride levels have improved and appear relatively stable following recent plasmapheresis session/treatment; still with some nausea and abdominal pain present; however, able to eat some without any worsening abdominal pain. Exam Narrative: General: WD/WN female in NAD Heart: normal S1 and S2; no rub Lungs: clear to auscultation Abdomen: soft, mild TTP; positive bowel sounds Extremities: no cyanosis or clubbing; trace edema Skin: warm and dry Objective Data Vital Signs Vital Signs: Vital Signs Temp Pulse Resp BP Pulse Ox O2 Del Method 04/08/23 12:00 97.4 F L 97 16 124/73 100 04/08/23 09:43 96 Room Air 04/08/23 06:00 97.9 F 77 16 103/50 L 99 04/07/23 21:52 97.9 F 85 18 141/85 H 96 Intake/Output Intake/Output: Intake & Output 04/05/23 04/06/23 04/07/23 04/08/23 23:59 23:59 23:59 23:59 Intake Total 7798 2062 1340 Output Total 850 1100 Balance 6948 962 1340 Meds/Results Medications: Active Medications Generic Name Dose Route Start Last Admin Trade Name Freq PRN Reason Stop Dose Admin Bupropion HCl 150 mg 04/07/23 09:00 04/08/23 09:42 Bupropion Hcl Sr (12 Hr) 150 Mg Tab PO 150 mg DAILY RAPHAEL Administration Dextrose 12.5 gm 04/06/23 09:39 Dextrose 50% 25 Gm/50 Ml Syringe IV PUSH PRN PRN Hypoglycemia Protocol Empagliflozin 25 mg 04/06/23 09:00 04/08/23 09:4
[2023-04-08 14:00] VITALS: BP 124/73; PULSE 97; RESP 16; TEMP 36.3; O2SAT 100
[2023-04-08 16:47] LABS: Glucose Point of Care 88 mg/dl (65-105)
[2023-04-08 20:24] VITALS: BP 126/50; PULSE 87; RESP 18; TEMP 36.4; O2SAT 95
[2023-04-08] MEDS: traZODone HCL 50 MG TABLET 100 MG BY MOUTH (21:03)
[2023-04-08] MEDS: INSULIN GLARGINE (*BKC) 100 UNITS/ML 20 UNITS SUB-Q (21:04)
[2023-04-08 21:06] LABS: Glucose Point of Care 132 mg/dl (65-105)
[2023-04-08] MEDS: ACETAMINOPHEN 325 MG TABLET 650 MG PO (22:10)
[2023-04-08 23:41] LABS: Glucose Point of Care 153 mg/dl (65-105)
[2023-04-09] MEDS: HYDROmorphone HCL INJ (*CRX) 1 MG/ML SYR 0.5 MG IV PUSH ×5 (01:10→17:02)
[2023-04-09 03:55] VITALS: BP 105/41; PULSE 70; RESP 16; TEMP 36.2; O2SAT 95
[2023-04-09 04:36] LABS: Glucose Point of Care 94 mg/dl (65-105)
[2023-04-09] MEDS: ONDANSETRON INJ 4 MG/2 ML VIAL IV PUSH ×2 (04:39→14:02)
[2023-04-09] MEDS: LEVOTHYROXINE SODIUM 100 MCG TABLET 200 MCG PO (06:14)
[2023-04-09 07:47] LABS: Hematocrit 35.4 % (37.0-47.0); Hemoglobin 11.6 g/dL (12.0-15.0); Mean Corpuscular HGB Conc 32.8 g/dl (32-36); Mean Corpuscular Hemoglobin 29.5 pg (26-34); Mean Corpuscular Volume 90.1 fl (80-100); Mean Platelet Volume 9.3 fl (7.4-10.4); Platelet Count Result 177 k/mm3 (150-375); Red Blood Count 3.93 M/mm3 (4.2-5.4); Red Cell Distribution Width 14.2 % (11.5-14.5); White Blood Count 4.7 K/mm3 (4.5-10.0)
[2023-04-09 08:00] LABS: Glucose Point of Care 104 mg/dl (65-105)
[2023-04-09 08:04] LABS: Anion Gap 3 mmol/L (8-16); Blood Urea Nitrogen 10 mg/dL (7-17); Calcium 8.8 mg/dL (8.4-10.2); Carbon Dioxide 32 mmol/L (22-30); Chloride 102 mmol/L (98-107); Estimated CRCL calculation 125 ml/min; Estimated Glomerular Filt Rate > 60; Glucose 91 mg/dL (65-110); Magnesium 1.8 mg/dL (1.6-2.3); Potassium 3.8 mmol/L (3.4-5.0); Sodium 137 mmol/L (137-145); Triglycerides 496 mg/dL (<150)
[2023-04-09] MEDS: FENOFIBRATE NANOCRYSTALLIZED 145 MG TABLET PO (10:32)
[2023-04-09] MEDS: ROSUVASTATIN 10 MG TABLET 30 MG PO (10:32)
[2023-04-09] MEDS: EMPAGLIFLOZIN 25 MG TABLET PO (10:32)
[2023-04-09] MEDS: CHOLECALCIFEROL 1,000 UNITS TABLET 1000 UNITS PO (10:32)
[2023-04-09] MEDS: buPROPion HCL SR (12 HR) 150 MG TAB PO (10:32)
[2023-04-09] MEDS: metFORMIN HCL 500 MG TABLET 1000 MG PO ×2 (10:32→17:03)
[2023-04-09] MEDS: REMDESIVIR 100 MG/NS 250 ML 100 MG/250 ML BAG 250 MG IVPB (10:32)
[2023-04-09] MEDS: ENOXAPARIN 40 MG/0.4 ML SYRINGE SUB-Q (10:33)
[2023-04-09] MEDS: PANTOPRAZOLE SODIUM IV 40 MG VIAL IV PUSH (10:35)
[2023-04-09 11:33] LABS: Glucose Point of Care 91 mg/dl (65-105)
--- NOTE | 2023-04-09 11:45 | PM.PNNEP ---
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 started on insulin infusion and D10 infusion but with minmal improvement improvement noted s/p plasmapheresis (on 04/06) goal achieved - TG level < 600 TG level 496 by AM labs hold further plasmapheresis at this time follow trend of repeat triglyceride levels continue ongoing medical therapy back on fenofibrate + statin (2) COVID: Code(s): U07.1 - COVID-19 Status: Acute Assessment and Plan: COVID PCR test positive symptoms included cold and cough along with fevers and myalgias CXR showing bilateral lower lung opacities. CT of the abdomen showed linear and subsegmental consolidative opacities the bilateral dependent lower lobes and lingula started on remdesivir given need for supplemental oxygen and risk factors steroids on hold for now (3) Hx of pancreatitis: Code(s): Z87.19 - Personal history of other diseases of the digestive system Status: Acute Assessment and Plan: as noted on prior imaging showing chronic pancreatitis supportive therapy (4) Insulin dependent diabetes mellitus: Status: Chronic Assessment and Plan: poor control at baseline (based on HgbA1c) follow accu-cheks glycemic control per hospitalists Will continue to follow. Subjective Date/time seen: 04/09/23 11:45 Interval history: Follow-up for hypertriglyceridemia. Triglyceride levels remains at goal by repeat testing this AM; abdominal pain seems better as well; able to eat and drink reasonably well; no issues/events overnight or earlier today. Exam Narrative: General: WD/WN female in NAD Heart: normal S1 and S2; no rub Lungs: clear to auscultation Abdomen: soft, mild TTP; positive bowel sounds Extremities: no cyanosis or clubbing; trace edema Skin: warm and intact Objective Data Vital Signs Vital Signs: Vital Signs - 24 hr 04/08/23 14:00 04/08/23 20:24 04/09/23 03:55 Temperature 97.4 F L 97.5 F L 97.1 F L Pulse Rate 97 87 70 Respiratory Rate 16 18 16 Blood Pressure 124/73 126/50 L 105/41 L Pulse Oximetry 100 95 95 Intake/Output Intake/Output: Intake & Output 04/06/23 04/07/23 04/08/23 04/09/23 23:59 23:59 23:59 23:59 Intake Total 7798 2062 2340 240 Output Total 850 1100 Balance 6948 962 2340 240 Meds/Results Medications: Active Medications Generic Name Dose Route Start Last Admin Trade Name Freq PRN Reason Stop Dose Admin Acetaminophen 650 mg 04/08/23 21:52 04/08/23 22:10 Acetaminophen 325 Mg Tablet PO 650 mg Q6H PRN Administration Mild Pain (1-3) or Fever Bupropion HCl 150 mg 04/07/23 09:00 04/09/23 10:32 Bupropion Hcl Sr (12 Hr) 150 Mg Tab PO 150 mg DAILY RAPHAEL Administration Dextrose 12.5 gm 04/06/23 09:39 Dextrose 50% 25 Gm/50 Ml Syringe IV PUSH PRN PRN Hypoglycemia Protocol Empagliflozin 25 mg 04/06/23 09:00 04/09/23 10:32 Empagliflozin 25 Mg Tablet PO 25 mg DAILY RAPHAEL Administration Enoxaparin Sodium 40 mg 04/08/23 09:00 04/09/23 10:33 Enoxaparin 40 Mg/0.4 Ml Syringe SUB-Q 40 mg DAILY RAPHAEL Administration Fenofibrate 145 mg 04/06/23 09:00 04/09/23 10:32 Fenofibrate Nanocrystallized 145 Mg Tablet PO 145 mg QAM RAPHAEL Administration Glucagon 1 mg 04/06/23 09:39 Glucagon For Inj 1 Mg Vial IM PRN PRN Hypoglycemia Protocol Glucose 15 gm 04/06/23 09:39 Glucose Oral Gel 15 Gm Of Glucse In 37.5 Gm Tube PO PRN PRN Hypoglycemia Protocol Hydromorphone HCl 0.5 mg 04/06/23 09:08 04/09/23 10:34 Hydromorphone Hcl Inj (*Crx) 1 Mg/Ml Syr IV PUSH 0.5 mg Q3H PRN Administration P
--- NOTE | 2023-04-09 11:45 | P.PNNP_ITS ---
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 * started on insulin infusion and D10 infusion but with minmal improvement * improvement noted s/p plasmapheresis (on 04/06) * goal achieved - TG level < 600 * TG level 496 by AM labs * hold further plasmapheresis at this time * follow trend of repeat triglyceride levels * continue ongoing medical therapy * back on fenofibrate + statin (2) COVID: Code(s): U07.1 - COVID-19 Status: Acute Assessment and Plan: * COVID PCR test positive * symptoms included cold and cough along with fevers and myalgias * CXR showing bilateral lower lung opacities. * CT of the abdomen showed linear and subsegmental consolidative opacities the bilateral dependent lower lobes and lingula * started on remdesivir given need for supplemental oxygen and risk factors * steroids on hold for now (3) Hx of pancreatitis: Code(s): Z87.19 - Personal history of other diseases of the digestive system Status: Acute Assessment and Plan: * as noted on prior imaging showing chronic pancreatitis * supportive therapy (4) Insulin dependent diabetes mellitus: Status: Chronic Assessment and Plan: * poor control at baseline (based on HgbA1c) * follow accu-cheks * glycemic control per hospitalists Will continue to follow. Subjective Date/time seen: 04/09/23 11:45 Interval history: Follow-up for hypertriglyceridemia. Triglyceride levels remains at goal by repeat testing this AM; abdominal pain seems better as well; able to eat and drink reasonably well; no issues/events overnight or earlier today. Exam Narrative: General: WD/WN female in NAD Heart: normal S1 and S2; no rub Lungs: clear to auscultation Abdomen: soft, mild TTP; positive bowel sounds Extremities: no cyanosis or clubbing; trace edema Skin: warm and intact Objective Data Vital Signs Vital Signs: Vital Signs - 24 hr 04/08/23 14:00 04/08/23 20:24 04/09/23 03:55 Temperature 97.4 F L 97.5 F L 97.1 F L Pulse Rate 97 87 70 Respiratory Rate 16 18 16 Blood Pressure 124/73 126/50 L 105/41 L Pulse Oximetry 100 95 95 Intake/Output Intake/Output: Intake & Output 04/06/23 04/07/23 04/08/23 04/09/23 23:59 23:59 23:59 23:59 Intake Total 7798 2062 2340 240 Output Total 850 1100 Balance 6948 962 2340 240 Meds/Results Medications: Active Medications Generic Name Dose Route Start Last Admin Trade Name Freq PRN Reason Stop Dose Admin Acetaminophen 650 mg 04/08/23 21:52 04/08/23 22:10 Acetaminophen 325 Mg Tablet PO 650 mg Q6H PRN Administration Mild Pain (1-3) or Fever Bupropion HCl 150 mg 04/07/23 09:00 04/09/23 10:32 Bupropion Hcl Sr (12 Hr) 150 Mg Tab PO 150 mg DAILY RAPHAEL Administration Dextrose 12.5 gm 04/06/23 09:39 Dextrose 50% 25 Gm/50 Ml Syringe IV PUSH PRN PRN Hypoglycemia Pro
[2023-04-09 14:00] VITALS: BP 118/63; PULSE 74; RESP 18; TEMP 36.2; O2SAT 100
--- NOTE | 2023-04-09 15:50 | PM.DS ---
DS: Admitting Diagnosis Discharge Date 04/09/23 Admitting Diagnosis Abdominal pain DS: Discharge Diagnosis Discharge Diagnosis (1) Hypertriglyceridemia: Code(s): E78.1 - Pure hyperglyceridemia Status: Chronic (2) COVID: Code(s): U07.1 - COVID-19 Status: Acute (3) Abdominal pain: Code(s): R10.9 - Unspecified abdominal pain Status: Acute (4) Hx of pancreatitis: Code(s): Z87.19 - Personal history of other diseases of the digestive system Status: Acute (5) Insulin dependent diabetes mellitus: Status: Chronic (6) Viral URI with cough: Code(s): J06.9 - Acute upper respiratory infection, unspecified Status: Acute (7) 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 Please see H&P for details. Hospital Course: Patient presents with upper abdominal pain.? Probably related to hypertriglyceridemia and pancreatitis despite the normal lipase.? She does have chronic pancreatitis and symptoms of malabsorption. Triglyceride level was greater than 2625 related to her chylomicronemia syndrome.? She has required plasmapheresis in the past. CT abdomen pelvis showing gastritis/esophagitis and urinary bladder distention. Pancreas appeared normal. She was admitted to the ICU and started on insulin infusion and D10 infusion.?Nephrology consulted and plasmapheresis performed. Serial triglyceride levels improved after plasmapheresis. We continued fenofibrate and Crestor. Patient with cold and cough symptoms prior to admission (sx began 04/02).? Also was having fevers and myalgias at home but no fevers since admission. ?CXR showing bilateral lower lung opacities. CT of the abdomen showed linear and subsegmental consolidative opacities the bilateral dependent lower lobes and lingula. White count normal and remained normal. Influenza and RSV PCR negative. COVID PCR positive. She had an oxygen requirement so started on Remdesivir. Given that she is on low dose O2 (2L but easily weaned to RA), we held dexamethasone since CRP 1.6 and that she has DM. Patient was educated about the benefits of smoking cessation. She overall did well and was able to be discharged home on 04/09/23. Status at Discharge Cognitive/behavioral status at discharge: stable Time Spent with Patient Time attestation: Total time spent providing and/or coordinating discharge services: 36 minutes Time spent: Greater than 30 minutes Exam Narrative: AF 97.1 105/41 70 16 95% ra Gen - NARD Chest - CTA bilaterally, nml RR. CV - RRR. S1-S2 Abd - soft, +BS, ND, minimal upper abd tenderness without guarding or rebound Ext - no pedal edema Psych - normal mood and affect. Skin - warm and dry. DS: Data Data Completed and Pending Labs on day of discharge: Labs from last 24 hours 04/09/23 04/09/23 04/09/23 11:10 07:56 06:51 WBC 4.7 RBC 3.93 L Hgb 11.6 L Hct 35.4 L MCV 90.1 MCH 29.5 MCHC 32.8 RDW 14.2 Plt Count 177 MPV 9.3 Sodium 137 Potassium 3.8 Chloride 102 Carbon Dioxide 32 H Anion Gap 3 L BUN 10 Creatinine 0.50 L Estim Creat Clear Calc 125 Estimated GFR > 60 Glucose 91 POC Capillary Glucose 91 104 Calcium 8.8 Magnesium 1.8 Triglycerides 496 H 04/09/23 04/08/23 04/08/23 03:53 23:38 20:23 WBC RBC Hgb Hct
[2023-04-09 16:29] LABS: Glucose Point of Care 101 mg/dl (65-105)
[2023-04-10 23:38] LABS: Vitamin A 46 mcg/dL (38-98)
[2023-04-11 03:45] LABS: Alpha-Tocopherol 16.6 mg/L (5.7-19.9); Beta-Gamma Tocopherol 3.7 mg/L (<=4.3)
== END 2023-04-09 17:25 | disposition home or self-care (01) | DRG 642 ==
LOC: ANHED 04-06 03:57 → ANHICU 04-06 08:03 → ANH3MEDSUR 04-07 10:51
PROVIDERS: Internal Medicine; Internal Medicine Nephrology; Admitting Provider Internal Medicine; Emergency Provider Emergency Medicine; PCP Internal Medicine; Visit Provider Internal Medicine
DX: E78.3 Hyperchylomicronemia (principal); U07.1 COVID-19; K86.1 Other chronic pancreatitis; E78.5 Hyperlipidemia, unspecified; E78.1 Pure hyperglyceridemia; E03.8 Other specified hypothyroidism; E06.3 Autoimmune thyroiditis; E11.9 Type 2 diabetes mellitus without complications; E78.6 Lipoprotein deficiency; K21.9 Gastro-esophageal reflux disease without esophagitis; F17.210 Nicotine dependence, cigarettes, uncomplicated; F41.9 Anxiety disorder, unspecified; Z79.4 Long term (current) use of insulin
CPT/HCPCS: 36415; 36514; 71045; 74177; 80048; 80053; 80069; 81001; 81025; 82306; 82728; 82948; 83036; 83605; 83615; 83690; 83735; 84100; 84443; 84446; 84478; 84590; 85025; 85027; 86140; 87637; 96361; 96365; 96366; 96367; 96375; 96376; 99285; A9270; C9113; G0378; J0248; J0613; J1170; J1644; J1650; J1815; J1885; J2405; J3480; J7030; J7040; J7120; P9041; P9045; Q9967

== ENCOUNTER 2023-04-17 19:37 | Inpatient (IN) | payer MEDICARE, SELFPAY ==
[2023-04-17] VITALS (8 sets, daily range): BP systolic 115–129; BP diastolic 51–81; PULSE 80–102; RESP 9–21; TEMP 36.9; O2SAT 97–100
--- NOTE | ~2023-04-17 | CT_ITS ---
CT of the Abdomen and Pelvis: Indication: Abdominal pain Technique: 2.5 mm axial scans were obtained through the abdomen and pelvis following intravenous adm inistration of 100 cc of Omnipaque 350. Dose reduction technique was used on this scan by utilizing a utomated exposure control and iterative reconstruction technique. The dose-length product (DLP) was 9 83.84 mGy-cm. COMPARISON: 04/06/2023 Findings: Scans through the lung bases are unremarkable. The liver, spleen, pancreas, gallbladder, adrenals and right kidney are within normal limits. 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 No evidence of aortic aneurysm. No lymphadenopathy. No bowel obstruction or bowel wall thickening. There is no evidence to suggest acute appendicitis. Images through the pelvis were performed. Patient is status post hysterectomy. No abnormal adnexal ma ss seen. Urinary bladder unremarkable. No ascites. Impression: No significant abnormalities seen. Reviewed, dictated and finalized at [facility]. AN Impression: No significant abnormalities seen.
--- NOTE | ~2023-04-17 | XR_ITS ---
EXAMINATION: XR chest 2V DATE: 04/17/2023 19:58 INDICATION: Chest pain. TECHNIQUE: Frontal and lateral views of the chest were obtained. COMPARISON: Chest single view 04/08/2023 FINDINGS: There is no pneumonia, pleural effusion, or pneumothorax. The heart size is normal. There i s a right internal jugular port with tip in proximal right atrium. There is a left internal jugular p ort with tip at superior cavoatrial junction. IMPRESSION: 1. No acute cardiopulmonary disease. Reviewed, dictated and finalized at location E. [facility] SPREADER
--- NOTE | 2023-04-17 19:38 | ECG_ITS ---
Measurements Intervals Martin Rate: 85 P: 60 MA: 150 QRS: 56 QRSD: 86 T: 47 QT: 356 QTc: 424 Interpretive Statements SINUS RHYTHM NONSPECIFIC T-WAVE ABNORMALITY BORDERLINE ECG COMPARED TO ECG 12/08/2022 21:06:16 NO SIGNIFICANT CHANGES Electronically Signed On 04-18-2023 17:29:08 ZINC PLATER by Ceasar Ng M.D.
[2023-04-17 19:57] LABS: Basophils Percent Auto 0.5 % (0.2-1.2); Eosinophils Absolute Auto 0.1 K/mm3 (0-0.3); Eosinophils Percent Auto 0.7 % (0-4.4); Hematocrit 39.4 % (37.0-47.0); Hemoglobin 13.2 g/dL (12.0-15.0); Immature Granulocyte Absolute 0.04 K/mm3 (0.00-0.031); Immature Granulocyte Percent A 0.5 % (0-0.5); Lymphocytes Absolute Auto 2.19 K/mm3 (0.9-3.2); Lymphocytes Percent Auto 25.2 % (18.3-44.2); Mean Corpuscular HGB Conc 33.5 g/dl (32-36); Mean Corpuscular Hemoglobin 29.7 pg (26-34); Mean Corpuscular Volume 88.5 fl (80-100); Mean Platelet Volume 9.2 fl (7.4-10.4); Monocytes Absolute Auto 0.5 K/mm3 (0.1-0.6); Monocytes Percent Auto 5.4 % (2.6-8.5); Neutrophils Absolute Auto 5.9 K/mm3 (1.3-6.7); Neutrophils Percent Auto 67.7 % (45.5-73.1); Platelet Count Result 296 k/mm3 (150-375); Red Blood Count 4.45 M/mm3 (4.2-5.4); Red Cell Distribution Width 13.5 % (11.5-14.5); White Blood Count 8.7 K/mm3 (4.5-10.0)
[2023-04-17 20:10] LABS: Alanine Aminotransferase 22 U/L (6-35); Albumin Level 4.4 g/dL (3.5-5.1); Alkaline Phosphatase 92 U/L (38-126); Anion Gap 3 mmol/L (8-16); Aspartate Amino Transferase 23 U/L (14-36); Bilirubin,Total 0.5 mg/dL (0.2-1.3); Blood Urea Nitrogen 12 mg/dL (7-17); Calcium 9.5 mg/dL (8.4-10.2); Carbon Dioxide 27 mmol/L (22-30); Chloride 100 mmol/L (98-107); Estimated CRCL calculation 124 ml/min; Estimated Glomerular Filt Rate > 60; Glucose 365 mg/dL (65-110); Lipase 122 U/L (23-300); Sodium 130 mmol/L (137-145)
[2023-04-17 20:14] LABS: INR 0.9; Prothrombin Time 12.4 Seconds (11.1-14.7)
[2023-04-17 20:15] LABS: Partial Thromboplastin Time 32.8 SECONDS (22.3-36.8)
[2023-04-17 20:22] LABS: Troponin I < 0.012 ng/mL (0.000-0.034)
[2023-04-17] MEDS: ASPIRIN 81 MG CHEWABLE TABLET 324 MG PO (21:29)
--- NOTE | 2023-04-17 23:03 | ED.CHESTPAIN ---
HPI - Chest Pain General Chief Complaint: Chest Pain Stated Complaint: chest pain Time Seen by Provider: 04/17/23 22:58 Source: patient and family Limitations: no limitations History of Present Illness HPI narrative: Patient is a 47-year-old female presents to the emergency department complaining of chest pain. Patient states the pain started last night around 8:30 p.m. while at rest approximately 27 hours ago and has been constant ever since, described as left-sided chest and radiates to her left shoulder and left neck, throbbing and burning in nature, tried a home pain medication which she is unsure the name of 325 mg without any relief, has an OCD making her pain better or worse, denies any history is pain in the past, Mr. Associated shortness of breath and nausea. Patient also states she feels like her pancreas is flaring up if she is not history of chronic pancreatitis and used to be on Creon but has not been on and she has a left chest port where she gets regular infusions and has a known diagnosis of cardio micro anemia and often times gets insulin infusions for this in her pancreas enzymes are not elevated. Patient admits to being a smoker, denies history of hypertension, admits to being diabetic and having high cholesterol in addition no family history of early heart disease. Patient/to the Zofran this morning which helped with the nausea but her nausea appears to be returning 3 patient is to couple episodes of watery diarrhea today without any bloody nature to it. Patient is to being recently diagnosed with COVID last week and still having some slight rhinorrhea. Patient states her abdominal pain is intermittent, mainly in the upper abdomen, cramping and stabbing in nature for has not noticed any making the pain better or worse and does feel similar to her history of pancreatitis. 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 Patient denies dysuria, hematuria, urinary frequency, urinary urgency, fever, cough, numbness, weakness, rash, sick contacts, sore throat, confusion. Related Data Home Medications Medication Instructions Recorded Confirmed polyethylene glycol 3350 17 g PO DAILY PRN Constipation 12/02/22 04/06/23 insulin degludec 200 unit/mL (3 40 unit subcut QAM 04/06/23 04/06/23 mL) subcutaneous pen (Tresiba FlexTouch U-200 insulin) Allergies Allergy/AdvReac Type Severity Reaction Status Date / Time adhesive tape Allergy Mild Rash Verified 04/17/23 21:28 [place] pepper [green pepper] Allergy Unknown unknown Verified 04/17/23 21:28 Review of Systems Review of Systems: A 10 system review of systems was completed on the patient and is negative except for what is stated in the HPI. Nursing and ancillary documentation was reviewed. 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buse Hypertension Mother Hypothyroid Cerebrovascular accident Grandparent Skin cancer Colon cancer Heart disease
[2023-04-17 23:18] LABS: Troponin I < 0.012 ng/mL (0.000-0.034)
[2023-04-18] VITALS (17 sets, daily range): BP systolic 100–133; BP diastolic 54–82; PULSE 68–88; RESP 12–21; TEMP 36.4–36.7; O2SAT 94–98; BMI 29.7
[2023-04-18] MEDS: SODIUM CHLORIDE 0.9% IV 1,000 ML 999 ML IV CONT (00:41)
[2023-04-18] MEDS: FAMOTIDINE 20 MG/2 ML VIAL IV PUSH (00:41)
[2023-04-18] MEDS: MORPHINE SULFATE (*CRX) 4 MG/ML INJ IV PUSH (00:41)
[2023-04-18] MEDS: ONDANSETRON INJ 4 MG/2 ML VIAL IV PUSH (00:41)
[2023-04-18 00:44] LABS: Cholesterol 232 mg/dL (0-200); Magnesium 1.7 mg/dL (1.6-2.3)
[2023-04-18 00:49] LABS: SPREG INTERNAL CONTROL Positive; Serum Qual hCG Negative
[2023-04-18 00:50] LABS: Triglycerides 1343 mg/dL (<150)
[2023-04-18 01:13] LABS: LDL Cholesterol Direct 83 mg/dL
[2023-04-18 01:24] LABS: Appearance Urine Clear (Clear); Bilirubin Urine Negative (Negative); Blood Urine Negative (Negative); Color Urine Yellow (Yellow); Glucose Urine UA 3+ mg/dL (Negative); Ketones Urine Negative (Negative); Leukocyte Esterase Ur Negative LEU/UL (Negative); Nitrate Urine Negative (Negative); Protein Urine Negative (Negative); Urobilinogen Urine 0.2 mg/dL (<2.0)
[2023-04-18 01:28] LABS: Add Urine Microscopic? YES; Specific Grav Ur 1.049 (1.001-1.035)
--- NOTE | 2023-04-18 02:19 | PM.IMHP ---
H&P: HPI History of Present Illness Date/Time: 04/18/23 02:19 Chief Complaint: Epigastric pain Narrative: This is a 47-year-old female with past medical history significant for dyslipidemia, recurrent pancreatitis. Patient comes to the hospital due to epigastric abdominal pain now for 2 days with nausea vomiting diarrhea unable to keep anything down, poor per orally intake, denies fevers, rigors, chills, pain is in the epigastric area with radiation to the back it is 10/10 in intensity. Preliminary workup was significant for triglyceride 1343. Patient has been admitted for further evaluation management and treatment. EXAMINATION: XR chest 2V DATE: 04/17/2023 19:58 INDICATION: Chest pain. TECHNIQUE: Frontal and lateral views of the chest were obtained. COMPARISON: Chest single view 04/08/2023 FINDINGS: There is no pneumonia, pleural effusion, or pneumothorax. The heart size is normal. There is a right internal jugular port with tip in proximal right atrium. There is a left internal jugular port with tip at superior cavoatrial junction. IMPRESSION: 1. No acute cardiopulmonary disease. Review of Systems Review of Systems: Epigastric pain, nausea, vomiting, diarrhea Constitutional: Constitutional: Denies chills and Denies fever(s) Eyes: Eyes: Denies change in vision ENT: Denies dysphagia and Denies odynophagia Cardiovascular: Cardiovascular: Denies chest pain, Denies radiating jaw, neck or arm pain and Denies palpitations Respiratory: Respiratory: Denies cough, Denies excessive phlegm production and Denies dyspnea Gastrointestinal: Gastrointestinal: Reports abdominal pain, Denies melena, Denies hematochezia, Denies coffee ground emesis, Reports diarrhea, Reports nausea and Reports vomiting Genitourinary: Genitourinary: Denies dysuria Musculoskeletal: Musculoskeletal: Denies back pain and Denies arthralgias Integumentary/Breasts: Skin/Breast: Denies rash Neurologic: Denies focal weakness and Denies Sensory deficit (Neuro) Psychiatric: Psychiatric: Reports no additional psychiatric complaints and Reports as per HPI Endocrine: Endocrine: Denies cold intolerance, Denies fatigue, Denies flushing, Denies heat intolerance, Denies polyphagia, Denies polydipsia, Denies polyuria and Denies palpitations Hematologic/Lymphatic: Hematologic/Lymphatic: Reports no additional hematologic/lymphatic complaints and Reports as per HPI Allergic/Immunologic: Allergic/Immunologic: Reports no additional allergic/immunologic complaints and Reports as per HPI [facility] Past Medical History Medical History (Updated 04/18/23 @ 01:49 by Maurice Young DO) Allergic rhinitis Anxiety Chronic pancreatitis Chylomicronemia syndrome GERD (gastroesophageal reflux disease) Headache Hyperlipemia Hypertriglyceridemia 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buse Hypertension Mother Hypothyroid Cerebrovascular accident Grandparent Skin cancer Colon cancer Heart disease Hypothyroid Cerebrovascular accident Sibling Hypothyroid Kidney disorder Hypertension Autoimmune disorder Social History Social History Social History: She smokes a pack a day for the past 30 years. No alcohol or drug use. She has 2 dogs
[2023-04-18 02:28] LABS: Magnesium 1.6 mg/dL (1.6-2.3); Phosphorus 3.7 mg/dL (2.5-4.5)
[2023-04-18 02:40] LABS: Glucose Point of Care 371 mg/dl (65-105)
[2023-04-18 02:41] LABS: Troponin I < 0.012 ng/mL (0.000-0.034)
[2023-04-18] MEDS: HYDROmorphone HCL INJ (*CRX) 1 MG/ML SYR 0.5 MG IV PUSH ×8 (02:46→21:47)
[2023-04-18] MEDS: INSULIN HUMAN REGULAR (*BKC) 100 UNITS in SODIUM CHLORIDE 0.9% IV 99 ML 8 UNITS IV CONT ×2 (02:51→10:03)
[2023-04-18] MEDS: SODIUM CHLORIDE 0.9% IV 1,000 ML 150 ML IV CONT (02:51)
[2023-04-18] MEDS: KCL 20 MEQ/D5/0.45% SOD CHL 1,000 ML 150 ML IV CONT (02:52)
[2023-04-18 02:58] LABS: Thyroid Stimulating Hormone Reflex 0.208 uIU/mL (0.465-4.68)
[2023-04-18] MEDS: HYDROmorphone HCL INJ (*CRX) 1 MG/ML SYR 2 MG IV PUSH (02:59)
[2023-04-18 03:29] LABS: Free T4 Free Thyroxine Reflex 2.46 ng/dL (0.78-2.19)
[2023-04-18 04:19] LABS: Glucose Point of Care 227 mg/dl (65-105)
[2023-04-18 04:36] LABS: Glucose Point of Care 152 mg/dl (65-105)
--- NOTE | 2023-04-18 04:43 | PC.NURSE ---
This patient, Casandra Jones, was admitted to Intensive Care Unit-9. Patient/family oriented to hospital policies and general routines including ID bracelet, bed and alarms, visiting hours, pain management, procedures, bathroom and other care routines, personal items, smoking policy, room service/diet, and visiting hours. Information on how to activate the Rapid Response Team has been discussed. Patient/Family are encouraged to report perceived risks to care and to ask questions if they do not understand what they are told or what they should do.
[2023-04-18 05:21] LABS: Anion Gap 5 mmol/L (8-16); Blood Urea Nitrogen 10 mg/dL (7-17); Calcium 8.7 mg/dL (8.4-10.2); Carbon Dioxide 24 mmol/L (22-30); Chloride 108 mmol/L (98-107); Estimated CRCL calculation 148 ml/min; Estimated Glomerular Filt Rate > 60; Glucose 138 mg/dL (65-110); Potassium 3.4 mmol/L (3.4-5.0); Sodium 137 mmol/L (137-145)
[2023-04-18 06:00] LABS: Triglycerides 1091 mg/dL (<150)
[2023-04-18 06:09] LABS: Glucose Point of Care 110 mg/dl (65-105)
[2023-04-18 07:05] LABS: Glucose Point of Care 164 mg/dl (65-105)
[2023-04-18 08:07] LABS: Glucose Point of Care 169 mg/dl (65-105)
[2023-04-18] MEDS: ROSUVASTATIN 10 MG TABLET 30 MG PO (08:54)
[2023-04-18] MEDS: FENOFIBRATE NANOCRYSTALLIZED 145 MG TABLET PO (08:54)
[2023-04-18] MEDS: LEVOTHYROXINE SODIUM 100 MCG TABLET 200 MCG PO (08:54)
[2023-04-18] MEDS: PANTOPRAZOLE SODIUM IV 40 MG VIAL IV PUSH ×2 (08:54→20:26)
[2023-04-18] MEDS: DEXTROSE 10% 1,000 ML 75 ML IV CONT (08:56)
[2023-04-18 09:16] LABS: Anion Gap 7 mmol/L (8-16); Blood Urea Nitrogen 9 mg/dL (7-17); Calcium 8.1 mg/dL (8.4-10.2); Carbon Dioxide 24 mmol/L (22-30); Chloride 107 mmol/L (98-107); Estimated CRCL calculation 148 ml/min; Estimated Glomerular Filt Rate > 60; Glucose 179 mg/dL (65-110); Potassium 3.7 mmol/L (3.4-5.0); Sodium 138 mmol/L (137-145)
--- NOTE | 2023-04-18 09:16 | PC.NURSE ---
Insulin drip rate changed to 8units/hr per Dr. Castellano's order. New order place for non-titratable insulin drip
--- NOTE | 2023-04-18 09:16 | WPDCNINT ---
Assessment and Plan Assessment and plan (1) Hypertriglyceridemia: Code(s): E78.1 - Pure hyperglyceridemia Status: Acute Assessment and Plan: Patient presented with abdominal pain, has a history of chronic pancreatitis and chylomicronemia requiring plasmapheresis. In the ED was found to again have hypertriglyceridemia most likely related to chylomicronemia and chronic pancreatitis -patient was started on insulin infusion per DKA protocol -I switched the insulin to 0.1 units/kg per hour, also started on D10. -continue to monitor the Accu-Cheks -will check triglycerides q.12 hours (2) Abdominal pain: Code(s): R10.9 - Unspecified abdominal pain Status: Acute Assessment and Plan: Patient has chronic abdominal pain for which she takes Stendal at home -currently on Dilaudid 0.5 mg IV. 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 Qualified Code(s): E03.8 - Other specified hypothyroidism; E06.3 - Autoimmune thyroiditis Code(s): E03.9 - Hypothyroidism, unspecified Status: Acute Assessment and Plan: Continue levothyroxine (6) Chest pain: Code(s): R07.9 - Chest pain, unspecified Status: Acute Assessment and Plan: Patient also presented with chest pain that was radiating to left arm and shoulder -EKG did not show any ST-T changes, sinus rhythm -troponins were negative x3 -chest pain has resolved this morning, patient thinks it was more of her epigastric pain Plan DVT prophylaxis: Lovenox Stress ulcer prophylaxis: Protonix Nutrition: NPO except ice chips Code Status: Full Critical Care Time Spent: 47 minutes Due to a high probability of clinically significant, life threatening deterioration, the patient required my highest level of preparedness to intervene emergently and I personally spent this critical care time directly and personally managing the patient. This critical care time included obtaining a history; examining the patient; pulse oximetry; ordering and review of studies; arranging urgent treatment with development of a management plan; evaluation of patient's response to treatment; frequent reassessment; and discussions with other providers. It was exclusive of separately billable procedures and treating other patients and teaching time. Please see Assessment and Plan section and the rest of the note for further information on patient assessment and treatment This dictation may have been done utilizing a voice recognition system. Attempts have been made to correct errors. However, there may be uncorrected grammatical, spelling, and recognitions errors present. 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 Unable to keep down liquids and solids. Decreased appetite and poor oral intake. . The patient was hospitalized 04/06/2023 similar problems in significant elevation in the triglycerides, she did require plasmapheresis at the [facility]
[2023-04-18 10:08] LABS: Glucose Point of Care 136 mg/dl (65-105)
[2023-04-18 10:08] LABS: Triglycerides 822 mg/dL (<150)
[2023-04-18 11:04] LABS: Glucose Point of Care 70 mg/dl (65-105)
--- NOTE | 2023-04-18 11:05 | PC.NURSE ---
Notified Dr. Castellano of patient's blood glucose of 70. New order to increase D10 gtt to 100ml/hr and give 0.5 amp D50 now and recheck blood glucose in one hour.
[2023-04-18] MEDS: DEXTROSE 50% 25 GM/50 ML SYRINGE IV PUSH ×4 (11:07→17:27)
[2023-04-18] MEDS: ENOXAPARIN 40 MG/0.4 ML SYRINGE SUB-Q (11:07)
--- NOTE | 2023-04-18 12:05 | PC.NURSE ---
Notified Dr. Castellnao of patient's blood sugar of 58. New order to decrease insulin gtt to 6ml/hr and give 1 amp of D50 now. Recheck blood sugar in one hour
[2023-04-18 12:09] LABS: Glucose Point of Care 58 mg/dl (65-105)
[2023-04-18 13:05] LABS: Glucose Point of Care 87 mg/dl (65-105)
--- NOTE | 2023-04-18 13:05 | PC.NURSE ---
Notified Dr. Castellano of patient's blood glucose of 87. New order to give half an amp of D50 and decrease insulin drip to 4 units/hr.
[2023-04-18 13:52] LABS: Triglycerides 672 mg/dL (<150)
[2023-04-18 13:59] LABS: Glucose Point of Care 84 mg/dl (65-105)
--- NOTE | 2023-04-18 14:00 | PC.NURSE ---
Notified Dr. Castellano of patient's blood glucose of 84. Triglycerides are 672. New order to decrease insulin drip to 3units/hr and recheck triglycerides at 2100
[2023-04-18 15:10] LABS: Glucose Point of Care 107 mg/dl (65-105)
[2023-04-18 16:11] LABS: Glucose Point of Care 88 mg/dl (65-105)
[2023-04-18 17:08] LABS: Glucose Point of Care 78 mg/dl (65-105)
--- NOTE | 2023-04-18 17:24 | PC.NURSE ---
Updated Dr. Castellano on patient's blood glucose continuing to drop. 1600: 88, 1700: 78. New orders received
[2023-04-18 18:15] LABS: Glucose Point of Care 161 mg/dl (65-105)
[2023-04-18 18:59] LABS: Glucose Point of Care 144 mg/dl (65-105)
[2023-04-18 20:07] LABS: Glucose Point of Care 155 mg/dl (65-105)
[2023-04-18] MEDS: DEXTROSE 10% 1,000 ML 100 ML IV CONT (20:25)
[2023-04-18 21:08] LABS: Glucose Point of Care 142 mg/dl (65-105)
[2023-04-18 21:59] LABS: Triglycerides 762 mg/dL (<150)
[2023-04-18] MEDS: LORazepam (*CRX) 0.5 MG TABLET PO (23:00)
[2023-04-18 23:31] LABS: Glucose Point of Care 141 mg/dl (65-105)
[2023-04-18 23:31] LABS: Glucose Point of Care 158 mg/dl (65-105)
[2023-04-19] VITALS (13 sets, daily range): BP systolic 105–136; BP diastolic 50–86; PULSE 65–94; RESP 9–20; TEMP 36.6–36.9; O2SAT 92–100
[2023-04-19] MEDS: ACETAMINOPHEN 500 MG TABLET 1000 MG PO (00:05)
[2023-04-19 00:11] LABS: Glucose Point of Care 170 mg/dl (65-105)
[2023-04-19 00:59] LABS: Glucose Point of Care 130 mg/dl (65-105)
[2023-04-19] MEDS: HYDROmorphone HCL INJ (*CRX) 1 MG/ML SYR IV PUSH ×6 (01:40→22:16)
[2023-04-19 01:53] LABS: Glucose Point of Care 115 mg/dl (65-105)
[2023-04-19 02:58] LABS: Glucose Point of Care 108 mg/dl (65-105)
[2023-04-19 04:14] LABS: Glucose Point of Care 93 mg/dl (65-105)
[2023-04-19] MEDS: DEXTROSE 10% 1,000 ML 100 ML IV CONT ×2 (04:31→12:50)
[2023-04-19 04:35] LABS: Basophils Percent Auto 0.4 % (0.2-1.2); Eosinophils Absolute Auto 0.1 K/mm3 (0-0.3); Eosinophils Percent Auto 0.7 % (0-4.4); Hematocrit 34.6 % (37.0-47.0); Hemoglobin 11.2 g/dL (12.0-15.0); Immature Granulocyte Absolute 0.04 K/mm3 (0.00-0.031); Immature Granulocyte Percent A 0.6 % (0-0.5); Lymphocytes Absolute Auto 1.72 K/mm3 (0.9-3.2); Lymphocytes Percent Auto 24.2 % (18.3-44.2); Mean Corpuscular HGB Conc 32.4 g/dl (32-36); Mean Corpuscular Hemoglobin 28.7 pg (26-34); Mean Corpuscular Volume 88.7 fl (80-100); Mean Platelet Volume 9.1 fl (7.4-10.4); Monocytes Absolute Auto 0.5 K/mm3 (0.1-0.6); Monocytes Percent Auto 6.6 % (2.6-8.5); Neutrophils Absolute Auto 4.8 K/mm3 (1.3-6.7); Neutrophils Percent Auto 67.5 % (45.5-73.1); Platelet Count Result 225 k/mm3 (150-375); Red Cell Distribution Width 13.8 % (11.5-14.5); White Blood Count 7.1 K/mm3 (4.5-10.0)
[2023-04-19] MEDS: DEXTROSE 50% 25 GM/50 ML SYRINGE IV PUSH ×2 (04:35→08:18)
[2023-04-19 05:10] LABS: Glucose Point of Care 126 mg/dl (65-105)
[2023-04-19 05:23] LABS: Alanine Aminotransferase 23 U/L (6-35); Albumin Level 3.5 g/dL (3.5-5.1); Alkaline Phosphatase 57 U/L (38-126); Anion Gap 5 mmol/L (8-16); Aspartate Amino Transferase 33 U/L (14-36); Bilirubin,Total 0.4 mg/dL (0.2-1.3); Blood Urea Nitrogen 4 mg/dL (7-17); Calcium 8.7 mg/dL (8.4-10.2); Carbon Dioxide 27 mmol/L (22-30); Chloride 105 mmol/L (98-107); Estimated CRCL calculation 148 ml/min; Estimated Glomerular Filt Rate > 60; Glucose 79 mg/dL (65-110); Magnesium 1.6 mg/dL (1.6-2.3); Phosphorus 4.2 mg/dL (2.5-4.5); Potassium 3.3 mmol/L (3.4-5.0); Sodium 137 mmol/L (137-145)
[2023-04-19 05:55] LABS: Triglycerides 602 mg/dL (<150)
[2023-04-19] MEDS: LEVOTHYROXINE SODIUM 100 MCG TABLET 200 MCG PO (05:58)
[2023-04-19 06:13] LABS: Glucose Point of Care 127 mg/dl (65-105)
[2023-04-19 06:55] LABS: Glucose Point of Care 108 mg/dl (65-105)
[2023-04-19] MEDS: diphenhydrAMINE HCl CAP 25 MG CAPSULE PO ×3 (07:40→22:16)
[2023-04-19 08:04] LABS: Glucose Point of Care 77 mg/dl (65-105)
[2023-04-19 08:08] LABS: Glucose Point of Care 77 mg/dl (65-105)
[2023-04-19 08:56] LABS: Glucose Point of Care 139 mg/dl (65-105)
[2023-04-19] MEDS: ROSUVASTATIN 10 MG TABLET 30 MG PO (09:43)
[2023-04-19] MEDS: FENOFIBRATE NANOCRYSTALLIZED 145 MG TABLET PO (09:44)
[2023-04-19] MEDS: PANTOPRAZOLE SODIUM IV 40 MG VIAL IV PUSH ×2 (09:44→20:25)
[2023-04-19] MEDS: ENOXAPARIN 40 MG/0.4 ML SYRINGE SUB-Q (09:44)
[2023-04-19 09:50] LABS: Glucose Point of Care 143 mg/dl (65-105)
[2023-04-19 10:59] LABS: Glucose Point of Care 151 mg/dl (65-105)
[2023-04-19 12:13] LABS: Glucose Point of Care 143 mg/dl (65-105)
[2023-04-19 13:15] LABS: Triglycerides 515 mg/dL (<150)
[2023-04-19 13:56] LABS: Glucose Point of Care 129 mg/dl (65-105)
[2023-04-19] MEDS: INSULIN HUMAN REGULAR (*BKC) 100 UNITS in SODIUM CHLORIDE 0.9% IV 99 ML IV CONT (13:57)
--- NOTE | 2023-04-19 14:22 | WPDINTPN ---
Progress Note: A&P Assessment and Plan (1) Hypertriglyceridemia: Code(s): E78.1 - Pure hyperglyceridemia Status: Acute Assessment and Plan: Patient presented with abdominal pain, has a history of chronic pancreatitis and chylomicronemia requiring plasmapheresis. In the ED was found to again have hypertriglyceridemia most likely related to chylomicronemia and chronic pancreatitis -patient was started on insulin infusion per DKA protocol -patient remains on insulin infusion at 3 units/hour along with D10 at 100 mL/hour. -continue to monitor the Accu-Cheks -triglyceride level down to 515 -will increase insulin infusion to 4 units/hr and also increase D10 to 125 mL/hour -will discontinue insulin infusion once triglycerides and has and 500 (2) Abdominal pain: Code(s): R10.9 - Unspecified abdominal pain Status: Acute Assessment and Plan: Patient has chronic abdominal pain for which she takes Ethel at home -currently on Dilaudid 04/17: CT scan of the abdomen and pelvis: No significant abnormalities seen (3) Hx of pancreatitis: Code(s): Z87.19 - Personal history of other diseases of the digestive system Status: Acute Assessment and Plan: History of acute on chronic pancreatitis Currently lipase LFTs and bilirubin are normal (4) Tobacco use: Code(s): Z72.0 - Tobacco use Status: Acute Assessment and Plan: Patient counseled and encouraged to quit smoking 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 Qualified Code(s): E03.8 - Other specified hypothyroidism; E06.3 - Autoimmune thyroiditis Code(s): E03.9 - Hypothyroidism, unspecified Status: Acute Assessment and Plan: Continue levothyroxine (6) Chest pain: Code(s): R07.9 - Chest pain, unspecified Status: Acute Assessment and Plan: Patient also presented with chest pain that was radiating to left arm and shoulder -EKG did not show any ST-T changes, sinus rhythm -troponins were negative x3 -chest pain has resolved, patient thinks it was more of her epigastric pain Plan DVT prophylaxis: Lovenox Stress ulcer prophylaxis: Protonix Nutrition: NPO except ice chips Code Status: Full Critical Care Time Spent: 32 minutes Due to a high probability of clinically significant, life threatening deterioration, the patient required my highest level of preparedness to intervene emergently and I personally spent this critical care time directly and personally managing the patient. This critical care time included obtaining a history; examining the patient; pulse oximetry; ordering and review of studies; arranging urgent treatment with development of a management plan; evaluation of patient's response to treatment; frequent reassessment; and discussions with other providers. It was exclusive of separately billable procedures and treating other patients and teaching time. Please see Assessment and Plan section and the rest of the note for further information on patient assessment and treatment This dictation may have been done utilizing a voice recognition system. Attempts have been made to correct errors. However, there may be uncorrected grammatical, spelling, and recognitions errors present. Subjective Date/time seen: 04/19/23 14:22 Interval history: Reason for consult: Hypertriglyceridemia, abdominal pain, chest pain 04/19/2023: Patient seen and examined in the ICU plan, alert, oriented x3, pleasant female in no acute distress hemodynamically stable, adequate urine output. On D 10 at 100 mL/hour along with insulin infusion hypertriglyceridemia. Triglyceride levels are trending down. Patient denies any chest pain, shortness of breath, nausea or vomiting at this time. She states that abdominal pain is improving Review of Systems Review of Systems: All systems reviewed & are unremarkable except as noted in HPI and below
[2023-04-19 15:05] LABS: Glucose Point of Care 109 mg/dl (65-105)
[2023-04-19] MEDS: ONDANSETRON INJ 4 MG/2 ML VIAL IV PUSH (15:22)
[2023-04-19 16:58] LABS: Glucose Point of Care 113 mg/dl (65-105)
[2023-04-19 16:58] LABS: Glucose Point of Care 96 mg/dl (65-105)
[2023-04-19] MEDS: POTASSIUM CHLORIDE 20 MEQ ER TABLET 40 MEQ PO (17:50)
[2023-04-19 18:26] LABS: Glucose Point of Care 99 mg/dl (65-105)
[2023-04-19 19:07] LABS: Glucose Point of Care 106 mg/dl (65-105)
[2023-04-19] MEDS: LORazepam (*CRX) 0.5 MG TABLET PO (20:25)
[2023-04-19 20:32] LABS: Glucose Point of Care 113 mg/dl (65-105)
[2023-04-19 21:19] LABS: Triglycerides 465 mg/dL (<150)
[2023-04-19] MEDS: ACETAMINOPHEN 325 MG TABLET 650 MG PO (22:16)
[2023-04-19] MEDS: DEXTROSE 5%/0.9% SOD CHL 1,000 ML 75 ML IV CONT (22:17)
[2023-04-19 22:26] LABS: Glucose Point of Care 113 mg/dl (65-105)
[2023-04-20] VITALS (9 sets, daily range): BP systolic 100–148; BP diastolic 63–89; PULSE 70–97; RESP 12–17; TEMP 36.4–36.8; O2SAT 96–99
[2023-04-20 00:46] LABS: Glucose Point of Care 187 mg/dl (65-105)
[2023-04-20] MEDS: HYDROmorphone HCL INJ (*CRX) 1 MG/ML SYR IV PUSH ×5 (02:29→20:53)
[2023-04-20] MEDS: ACETAMINOPHEN 325 MG TABLET 650 MG PO (03:22)
[2023-04-20 04:18] LABS: Basophils Percent Auto 0.5 % (0.2-1.2); Eosinophils Percent Auto 0.5 % (0-4.4); Hematocrit 33.8 % (37.0-47.0); Immature Granulocyte Absolute 0.04 K/mm3 (0.00-0.031); Immature Granulocyte Percent A 0.7 % (0-0.5); Lymphocytes Absolute Auto 1.51 K/mm3 (0.9-3.2); Lymphocytes Percent Auto 26.4 % (18.3-44.2); Mean Corpuscular HGB Conc 32.5 g/dl (32-36); Mean Corpuscular Hemoglobin 29.2 pg (26-34); Mean Corpuscular Volume 89.7 fl (80-100); Mean Platelet Volume 9.4 fl (7.4-10.4); Monocytes Absolute Auto 0.5 K/mm3 (0.1-0.6); Monocytes Percent Auto 8.4 % (2.6-8.5); Neutrophils Absolute Auto 3.6 K/mm3 (1.3-6.7); Neutrophils Percent Auto 63.5 % (45.5-73.1); Platelet Count Result 201 k/mm3 (150-375); Red Blood Count 3.77 M/mm3 (4.2-5.4); Red Cell Distribution Width 13.6 % (11.5-14.5); White Blood Count 5.7 K/mm3 (4.5-10.0)
[2023-04-20 04:32] LABS: Alanine Aminotransferase 40 U/L (6-35); Albumin Level 3.5 g/dL (3.5-5.1); Alkaline Phosphatase 65 U/L (38-126); Anion Gap 5 mmol/L (8-16); Aspartate Amino Transferase 58 U/L (14-36); Bilirubin,Total 0.4 mg/dL (0.2-1.3); Calcium 8.5 mg/dL (8.4-10.2); Carbon Dioxide 28 mmol/L (22-30); Chloride 103 mmol/L (98-107); Estimated CRCL calculation 151 ml/min; Estimated Glomerular Filt Rate > 60; Glucose 197 mg/dL (65-110); Magnesium 1.5 mg/dL (1.6-2.3); Potassium 3.8 mmol/L (3.4-5.0); Sodium 136 mmol/L (137-145)
[2023-04-20 04:51] LABS: Blood Urea Nitrogen < 2 mg/dL (7-17)
[2023-04-20] MEDS: LEVOTHYROXINE SODIUM 100 MCG TABLET 200 MCG PO (06:33)
[2023-04-20] MEDS: diphenhydrAMINE HCl CAP 25 MG CAPSULE PO ×2 (06:33→16:59)
[2023-04-20 07:36] LABS: Glucose Point of Care 203 mg/dl (65-105)
[2023-04-20] MEDS: ENOXAPARIN 40 MG/0.4 ML SYRINGE SUB-Q (08:01)
[2023-04-20] MEDS: PANTOPRAZOLE SODIUM IV 40 MG VIAL IV PUSH ×2 (08:01→20:28)
[2023-04-20] MEDS: ROSUVASTATIN 10 MG TABLET 30 MG PO (08:02)
[2023-04-20] MEDS: FENOFIBRATE NANOCRYSTALLIZED 145 MG TABLET PO (08:02)
[2023-04-20 08:15] LABS: Triglycerides 413 mg/dL (<150)
--- NOTE | 2023-04-20 09:59 | WPDINTPN ---
Progress Note: A&P Assessment and Plan (1) Hypertriglyceridemia: Code(s): E78.1 - Pure hyperglyceridemia Status: Acute Assessment and Plan: Patient presented with abdominal pain, has a history of chronic pancreatitis and chylomicronemia requiring plasmapheresis. In the ED was found to again have hypertriglyceridemia most likely related to chylomicronemia and chronic pancreatitis -now off insulin infusion and D10 infusion which was primarily for try hypertriglyceridemia -triglyceride level down to 413 -continue fenofibrate and rosuvastatin (2) Abdominal pain: Code(s): R10.9 - Unspecified abdominal pain Status: Acute Assessment and Plan: MUCH IMPROVED Patient has chronic abdominal pain for which she takes [place] at home -currently on Dilaudid 04/17: CT scan of the abdomen and pelvis: No significant abnormalities seen (3) Hx of pancreatitis: Code(s): Z87.19 - Personal history of other diseases of the digestive system Status: Acute Assessment and Plan: History of acute on chronic pancreatitis Currently lipase LFTs and bilirubin are normal (4) Tobacco use: Code(s): Z72.0 - Tobacco use Status: Acute Assessment and Plan: Patient counseled and encouraged to quit smoking 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 Qualified Code(s): E03.8 - Other specified hypothyroidism; E06.3 - Autoimmune thyroiditis Code(s): E03.9 - Hypothyroidism, unspecified Status: Acute Assessment and Plan: Continue levothyroxine (6) Chest pain: Code(s): R07.9 - Chest pain, unspecified Status: Acute Assessment and Plan: Patient also presented with chest pain that was radiating to left arm and shoulder -EKG did not show any ST-T changes, sinus rhythm -troponins were negative x3 -chest pain has resolved, patient thinks it was more of her epigastric pain Plan DVT prophylaxis: Lovenox Stress ulcer prophylaxis: Protonix Nutrition: NPO except ice chips Code Status: Full Critical Care Time Spent: 31 minutes Patient may transfer out of the ICU Due to a high probability of clinically significant, life threatening deterioration, the patient required my highest level of preparedness to intervene emergently and I personally spent this critical care time directly and personally managing the patient. This critical care time included obtaining a history; examining the patient; pulse oximetry; ordering and review of studies; arranging urgent treatment with development of a management plan; evaluation of patient's response to treatment; frequent reassessment; and discussions with other providers. It was exclusive of separately billable procedures and treating other patients and teaching time. Please see Assessment and Plan section and the rest of the note for further information on patient assessment and treatment This dictation may have been done utilizing a voice recognition system. Attempts have been made to correct errors. However, there may be uncorrected grammatical, spelling, and recognitions errors present. Subjective Date/time seen: 04/20/23 09:59 Interval history: Reason for consult: Hypertriglyceridemia, abdominal pain, chest pain 04/20/2023: Patient seen and examined in the ICU plan, alert, oriented x3, pleasant female in no acute distress hemodynamically stable, adequate urine output. Off insulin drip and D10 infusion. Triglyceride levels continue trending down. States he is feeling much better. She wants to eat Review of Systems Review of Systems: All systems reviewed & are unremarkable except as noted in HPI and below Exam Narrative: General: Pleasant female in no acute distress HEENT:? Pupils equal and reactive, sclera is clear, moist oral mucous Neck:? Supple Respiratory:? Clear to auscultation bilaterally, no wheezing, adequate air entry Cardiac:? S1-S2 normal,
[2023-04-20] MEDS: DEXTROSE 5%/0.9% SOD CHL 1,000 ML 75 ML IV CONT (12:22)
--- NOTE | 2023-04-20 14:37 | PC.NURSE ---
This patient, Casandra Jones, was transferred to [facility] via wheelchair without issue on 04/20/23 at 1317. Personal belongings sent with patient. Report given to Deborah Mercer. Appropriate documentation sent with patient.
[2023-04-20] MEDS: LORazepam (*CRX) 0.5 MG TABLET PO (16:59)
[2023-04-21] VITALS: BP 148/80; PULSE 84; RESP 20; TEMP 36.3; O2SAT 97
[2023-04-21] MEDS: HYDROmorphone HCL INJ (*CRX) 1 MG/ML SYR IV PUSH ×4 (00:53→14:49)
[2023-04-21] MEDS: diphenhydrAMINE HCl CAP 25 MG CAPSULE PO (00:55)
[2023-04-21] MEDS: DEXTROSE 5%/0.9% SOD CHL 1,000 ML 75 ML IV CONT (01:22)
[2023-04-21] MEDS: LEVOTHYROXINE SODIUM 100 MCG TABLET 200 MCG PO (05:31)
[2023-04-21] MEDS: PANTOPRAZOLE SODIUM IV 40 MG VIAL IV PUSH (08:39)
[2023-04-21] MEDS: ENOXAPARIN 40 MG/0.4 ML SYRINGE SUB-Q (08:39)
[2023-04-21] MEDS: LORazepam (*CRX) 0.5 MG TABLET PO (08:40)
[2023-04-21] MEDS: ROSUVASTATIN 10 MG TABLET 30 MG PO (08:40)
[2023-04-21] MEDS: FENOFIBRATE NANOCRYSTALLIZED 145 MG TABLET PO (08:40)
[2023-04-21 10:45] LABS: Alanine Aminotransferase 57 U/L (6-35); Albumin Level 3.6 g/dL (3.5-5.1); Alkaline Phosphatase 77 U/L (38-126); Anion Gap 6 mmol/L (8-16); Aspartate Amino Transferase 52 U/L (14-36); Bilirubin,Total 0.6 mg/dL (0.2-1.3); Blood Urea Nitrogen 5 mg/dL (7-17); Calcium 8.5 mg/dL (8.4-10.2); Carbon Dioxide 27 mmol/L (22-30); Chloride 104 mmol/L (98-107); Estimated CRCL calculation 150 ml/min; Estimated Glomerular Filt Rate > 60; Glucose 227 mg/dL (65-110); Potassium 3.5 mmol/L (3.4-5.0); Sodium 137 mmol/L (137-145); Triglycerides 399 mg/dL (<150)
--- NOTE | 2023-04-21 14:27 | PM.DS ---
DS: Admitting Diagnosis Discharge Date 04/21/2023: Admitting Diagnosis Chylomicronemia Syndrome Severe hypertriglyceridemia DS: Discharge Diagnosis Discharge Diagnosis (1) Pancreatitis: Code(s): K85.90 - Acute pancreatitis without necrosis or infection, unspecified Status: Acute (2) Hypertriglyceridemia: Code(s): E78.1 - Pure hyperglyceridemia Status: Acute (3) Obesity (BMI 30-39.9): Code(s): E66.9 - Obesity, unspecified Status: Acute (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 Status: Acute (5) Tobacco use: Code(s): Z72.0 - Tobacco use Status: Acute (6) Major depressive disorder: Qualifiers: Major depression recurrence: recurrent Active/Remission status: currently active Major depression episode severity: mild Qualified Code(s): F33.0 - Major depressive disorder, recurrent, mild Code(s): F32.9 - Major depressive disorder, single episode, unspecified Status: Acute (7) Insulin dependent diabetes mellitus: Status: Chronic (8) Hypothyroidism: Qualifiers: 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 Workup was done which showed findings consistent with severe hypertriglyceridemia secondary to her history of chylomicronemia. Hospital Course: H&P: HPI History of Present Illness Date/Time: 04/18/23? 02:19 Chief Complaint: Epigastric pain Narrative: This is a 47-year-old female with past medical history significant for dyslipidemia, recurrent pancreatitis.? Patient comes to the hospital due to epigastric abdominal pain now for 2 days with nausea vomiting diarrhea unable to keep anything down, poor per orally intake, denies fevers, rigors, chills, pain is in the epigastric area with radiation to the back it is 10/10 in intensity.? Preliminary workup was significant for triglyceride 1343.? Patient has been admitted for further evaluation management and treatment. HOSPITAL COURSE ... Date of Admission - 04/20/2023: Assessment and Plan (1) Hypertriglyceridemia: ?Code(s): E78.1 - Pure hyperglyceridemia ?Status:?Acute ?Assessment and Plan: Patient presented with abdominal pain, has a history of chronic pancreatitis and chylomicronemia requiring plasmapheresis.? In the ED was found to again have hypertriglyceridemia most likely related to chylomicronemia and chronic pancreatitis -now off insulin infusion and D10 infusion which was primarily for try hypertriglyceridemia -triglyceride level down to 413 -continue fenofibrate and rosuvastatin (2) Abdominal pain: ?Code(s): R10.9 - Unspecified abdominal pain ?Status:?Acute ?Assessment and Plan: MUCH IMPROVED Patient has chronic abdominal pain for which she takes [place] at home -currently on Dilaudid 04/17: CT scan of the abdomen and pelvis:? No significant abnormalities seen (3) Hx of pancreatitis: ?Code(s): Z87.19 - Personal history of other diseases of the digestive system ?Status:?Acute ?Assessment and Plan: History of acute on chronic pancreatitis Currently lipase LFTs and bilirubin are normal (4) Tobacco use: ?Code(s): Z72.0 - Tobacco use ?Status:?Acute ?Assessment and Plan: Patient counseled and encouraged to quit smoking (5) Hypothyroidism: ?Qualifiers: ?Hypothyroidism type:?due to Jade's thyroiditi
== END 2023-04-21 15:11 | disposition home or self-care (01) | DRG 642 ==
LOC: ANHED 04-18 01:49 → ANHICU 04-18 03:51 → ANH3MEDSUR 04-20 16:02
PROVIDERS: Emergency Medicine; Internal Medicine; Admitting Provider Internal Medicine; Emergency Provider Student in an Organized Health Care Education/Training Program; PCP Internal Medicine; Visit Provider Family Medicine
DX: E78.1 Pure hyperglyceridemia (principal); K86.1 Other chronic pancreatitis; E78.3 Hyperchylomicronemia; J34.89 Other specified disorders of nose and nasal sinuses; U09.9 Post COVID-19 condition, unspecified; R10.13 Epigastric pain; E66.9 Obesity, unspecified; Z68.30 Body mass index [BMI] 30.0-30.9, adult; K21.9 Gastro-esophageal reflux disease without esophagitis; E03.9 Hypothyroidism, unspecified; E06.3 Autoimmune thyroiditis; E11.65 Type 2 diabetes mellitus with hyperglycemia; E28.2 Polycystic ovarian syndrome; F41.9 Anxiety disorder, unspecified; F32.9 Major depressive disorder, single episode, unspecified; F17.210 Nicotine dependence, cigarettes, uncomplicated; Z90.49 Acquired absence of other specified parts of digestive tract; Z87.19 Personal history of other diseases of the digestive system
CPT/HCPCS: 36415; 71046; 74177; 80048; 80053; 80061; 81001; 81025; 82948; 83690; 83735; 84100; 84439; 84443; 84478; 84484; 84703; 85025; 85610; 85730; 93005; 96361; 96374; 96375; 99285; A9270; C9113; J1170; J1650; J1815; J2270; J2405; J3480; J7030; J7042; Q9967

== ENCOUNTER 2023-05-05 21:16 | Inpatient (IN) | payer MEDICARE, SELFPAY ==
--- NOTE | ~2023-05-05 | CT_ITS ---
CT of the Abdomen and Pelvis: Indication: Abdominal pain Technique: 2.5 mm axial scans were obtained through the abdomen and pelvis following intravenous adm inistration of 100 cc of Omnipaque 350. Dose reduction technique was used on this scan by utilizing a utomated exposure control and iterative reconstruction technique. The dose-length product (DLP) was 6 33.12 mGy-cm. COMPARISON: 04/18/2023 Findings: Scans through the lung bases are unremarkable. The liver, spleen, pancreas, gallbladder, adrenals and right kidney are within normal limits. Punctat e nonobstructing left renal stone noted. Tiny amount of perisplenic fluid present, nonspecific. There are atherosclerotic calcifications of the aorta. No lymphadenopathy. No bowel obstruction or bowel wall thickening. There is no evidence to suggest acute appendicitis. Images through the pelvis were performed. Urinary bladder unremarkable. No pelvic mass evident. No as cites. Impression: Punctate nonobstructing left renal stone. Tiny amount of perisplenic fluid, nonspecific. Reviewed, dictated and finalized at [facility]. [employer] Impression: Punctate nonobstructing left renal stone. Tiny amount of perisplenic fluid, nonspecific.
[2023-05-05 21:23] VITALS: BP 123/96; PULSE 115; RESP 16; TEMP 36.8; O2SAT 98
[2023-05-06] VITALS (10 sets, daily range): BP systolic 96–109; BP diastolic 53–85; PULSE 71–95; RESP 12–18; TEMP 36–36.6; O2SAT 93–98; BMI 31.6
--- NOTE | 2023-05-06 02:19 | ECG_ITS ---
Measurements Intervals [place] Rate: 79 P: 60 GA: 161 QRS: 62 QRSD: 93 T: 1 QT: 392 QTc: 452 Interpretive Statements SINUS RHYTHM BORDERLINE ST-T WAVE ABNORMALITY- ANTEROLAT/INF LEADS BORDERLINE ECG COMPARED TO ECG 04/17/2023 19:44:33 NO SIGNIFICANT CHANGES Electronically Signed On 05-06-2023 7:03:41 DIRECTOR OF PAYROLL by Baron Bowers D.O.
--- NOTE | 2023-05-06 02:46 | ED.GENADULT ---
HPI - General Adult General Chief complaint: Abdominal Pain Stated complaint: abd pain Time Seen by Provider: 05/06/23 02:11 History of Present Illness HPI narrative: Patient 47-year-old female who presents emergency department with chief complaint of abdominal pain. Patient reports she has prior history of chronic pancreatitis and also significantly elevated triglycerides and chylomicrone the patient also has NFAFL. The patient has had multiple prior admissions for pancreatitis Related Data Home Medications Medication Instructions Recorded Confirmed insulin degludec 200 unit/mL (3 40 unit subcut QAM 04/06/23 04/18/23 mL) subcutaneous pen (Tresiba FlexTouch U-200 insulin) trazodone 100 mg tablet 200 mg PO HS 04/18/23 04/18/23 Allergies Allergy/AdvReac Type Severity Reaction Status Date / Time adhesive tape Allergy Mild Rash Verified 04/17/23 21:28 [place] pepper [green pepper] Allergy Unknown unknown Verified 04/17/23 21:28 sucralose Allergy Migraine Verified 04/18/23 04:58 [From Splenda (sucralose)] Review of Systems Review of Systems: A 10 system review of systems was completed on the patient and is negative except for what is stated in the HPI. Nursing and ancillary documentation was reviewed. 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buse Hypertension Mother Hypothyroid Cerebrovascular accident Grandparent Skin cancer Colon cancer Heart disease Hypothyroid Cerebrovascular accident Sibling Hypothyroid Kidney disorder Hypertension Autoimmune disorder Social History Social History Social History: She smokes a pack a day for the past 30 years. No alcohol or drug use. She has 2 dogs and a cat at home. Surrogate medical decision maker: José Miguel Jones, spouse. Code status: Full Smoking packs per day: 1 Smoking cigarettes per day: 20.0 Years smoked: 31 Smoking pack-years: 31.00 Smoking status: Current every day smoker Tobacco type: cigarettes Second hand tobacco smoke exposure: Yes Alcohol intake: current Drinks per week: 0 Substance use: never Substance use type: does not use Do You Feel Safe in your Home?: Yes Lack of Transportation: YES Lack of Food: Never True Current Housing: I Have Housing Concerned About Future Housing: No Difficulty Paying Gas/Electric Bills: No Difficulty Paying for Meds: No Currently Unemployed: No Education: Associate Degree Difficulty w/ Childcare or Family Care: No Spiritual care concerns: No Exam Narrative: GENERAL: Well-appearing, well-nourished, and in no acute distress. HEAD: Normocephalic, atraumatic. EYES: PERRLA and EOMI. ENT: Nares clear, no rhinorrhea or epistaxis. Mucous membranes moist. NECK: Supple. CHEST: Clear to auscultation. No respiratory distress. HEART: Regular rate and rhythm. No murmur heard. Normal peripheral pulses. ABDOMEN: Soft, diffusely tender to palpation, nondistended
[2023-05-06] MEDS: SODIUM CHLORIDE 0.9% IV 1,000 ML 999 ML IV CONT ×2 (03:06→06:55)
[2023-05-06] MEDS: HYDROmorphone HCL INJ (*CRX) 1 MG/ML SYR IV PUSH ×7 (03:06→23:31)
[2023-05-06] MEDS: ONDANSETRON INJ 4 MG/2 ML VIAL IV PUSH (03:06)
[2023-05-06 03:42] LABS: Appearance Urine Clear (Clear); Bilirubin Urine Negative (Negative); Blood Urine Negative (Negative); Color Urine Yellow (Yellow); Glucose Urine UA 3+ mg/dL (Negative); Ketones Urine Negative (Negative); Leukocyte Esterase Ur Negative LEU/UL (Negative); Nitrate Urine Negative (Negative); Protein Urine Negative (Negative); Urobilinogen Urine 0.2 mg/dL (<2.0)
[2023-05-06 03:43] LABS: Basophils Absolute Auto 0.1 K/mm3 (0.0-0.1); Basophils Percent Auto 0.4 % (0.2-1.2); Eosinophils Absolute Auto 0.2 K/mm3 (0-0.3); Eosinophils Percent Auto 1.3 % (0-4.4); Hematocrit 43.9 % (37.0-47.0); Immature Granulocyte Absolute 0.08 K/mm3 (0.00-0.031); Immature Granulocyte Percent A 0.7 % (0-0.5); Lymphocytes Absolute Auto 3.55 K/mm3 (0.9-3.2); Lymphocytes Percent Auto 31.4 % (18.3-44.2); Mean Corpuscular HGB Conc 31.9 g/dl (32-36); Mean Corpuscular Hemoglobin 28.9 pg (26-34); Mean Corpuscular Volume 90.7 fl (80-100); Mean Platelet Volume 9.3 fl (7.4-10.4); Monocytes Absolute Auto 0.7 K/mm3 (0.1-0.6); Neutrophils Absolute Auto 6.8 K/mm3 (1.3-6.7); Neutrophils Percent Auto 60.2 % (45.5-73.1); Platelet Count Result 365 k/mm3 (150-375); Red Blood Count 4.84 M/mm3 (4.2-5.4); Red Cell Distribution Width 14.2 % (11.5-14.5); White Blood Count 11.3 K/mm3 (4.5-10.0)
[2023-05-06 03:44] LABS: Add Urine Microscopic? NO; Specific Grav Ur 1.042 (1.001-1.035)
[2023-05-06 03:48] LABS: Fractional Inspired Oxygen 21 %; PCO2 VBG 50.6 mmHg (42.0-48.0); PO2 VBG 33.2 mmHg (35.0-45.0); pH VBG 7.328 (7.300-7.400)
[2023-05-06 03:50] LABS: Device ROOM AIR
[2023-05-06 03:51] LABS: Alanine Aminotransferase 17 U/L (6-35); Albumin Level 4.5 g/dL (3.5-5.1); Alkaline Phosphatase 95 U/L (38-126); Anion Gap 11 mmol/L (8-16); Aspartate Amino Transferase 21 U/L (14-36); Bilirubin,Total 0.5 mg/dL (0.2-1.3); Blood Urea Nitrogen 18 mg/dL (7-17); Calcium 9.3 mg/dL (8.4-10.2); Carbon Dioxide 24 mmol/L (22-30); Chloride 102 mmol/L (98-107); Estimated CRCL calculation 126 ml/min; Estimated Glomerular Filt Rate > 60; Glucose 169 mg/dL (65-110); Lipase 183 U/L (23-300); Potassium 4.2 mmol/L (3.4-5.0); Sodium 137 mmol/L (137-145)
[2023-05-06 03:54] LABS: Lactic Acid Reflex 1.6 mmol/L (0.7-2.0)
[2023-05-06 03:55] LABS: Beta-Hydroxybutyrate/Acetoacetate 0.15 mmol/L (0.02-0.27)
[2023-05-06 03:57] LABS: INR 0.8; Partial Thromboplastin Time 35.1 SECONDS (22.3-36.8); Prothrombin Time 11.7 Seconds (11.1-14.7)
[2023-05-06 04:10] LABS: Procalcitonin 0.1 ng/mL
[2023-05-06 06:16] LABS: Triglycerides 881 mg/dL (<150)
[2023-05-06] MEDS: SODIUM CHLORIDE 0.9% IV 1,000 ML 125 ML IV CONT (08:35)
--- NOTE | 2023-05-06 09:19 | ADMGEN ---
This patient, Casandra Jones, was admitted to 3 [facility] Surg Room 310-01. Patient/family oriented to hospital policies and general routines including ID bracelet, bed and alarms, visiting hours, pain management, procedures, bathroom and other care routines, personal items, smoking policy, room service/diet, and visiting hours. Information on how to activate the Rapid Response Team has been discussed. Patient/Family are encouraged to report perceived risks to care and to ask questions if they do not understand what they are told or what they should do.
[2023-05-06 11:51] LABS: Glucose Point of Care 126 mg/dl (65-105)
[2023-05-06] MEDS: CITALOPRAM HYDROBROMIDE 20 MG TABLET 40 MG PO (12:11)
[2023-05-06] MEDS: buPROPion HCL SR (12 HR) 150 MG TAB PO (12:12)
[2023-05-06] MEDS: MAGNESIUM SULF 2 GM/WATER 50ML 2 GM/50 ML BAG IVPB (12:12)
[2023-05-06] MEDS: diphenhydrAMINE HCl INJ 50 MG/ML VIAL 25 MG IV PUSH (12:12)
[2023-05-06] MEDS: LEVOTHYROXINE SODIUM 100 MCG TABLET 200 MCG PO (12:18)
--- NOTE | 2023-05-06 12:18 | PM.IMHP ---
H&P: HPI History of Present Illness Date/Time: 05/06/23 12:18 Chief Complaint: Abdominal pain Narrative: 47-year-old female with past medical history of chronic pancreatitis, chylomicronemia syndrome presented with abdominal pain. She was having some nausea and vomiting. Was found to have elevated triglycerides. CT abdomen was nonspecific. She has similar prior history, was recently discharged in March 2023, was treated with insulin drip for hypertriglyceridemia related pancreatitis. 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buse Hypertension Mother Hypothyroid Cerebrovascular accident Grandparent Skin cancer Colon cancer Heart disease Hypothyroid Cerebrovascular accident Sibling Hypothyroid Kidney disorder Hypertension Autoimmune disorder Social History Social History Social History: She smokes a pack a day for the past 30 years. No alcohol or drug use. She has 2 dogs and a cat at home. Surrogate medical decision maker: José Miguel Jones, spouse. Code status: Full Smoking packs per day: 1 Smoking cigarettes per day: 20.0 Years smoked: 31 Smoking pack-years: 31.00 Smoking status: Current every day smoker Tobacco type: cigarettes Second hand tobacco smoke exposure: Yes Alcohol intake: never Drinks per week: 0 Substance use: never Substance use type: does not use Do You Feel Safe in your Home?: Yes Lack of Transportation: No Lack of Food: Never True Current Housing: I Have Housing Concerned About Future Housing: No Difficulty Paying Gas/Electric Bills: No Difficulty Paying for Meds: No Currently Unemployed: No Education: Don't Know Difficulty w/ Childcare or Family Care: No Spiritual care concerns: No Meds Home Medications and Allergies Home Medications Medication Instructions Recorded Confirmed Type fenofibrate nanocrystallized 145 145 mg PO DAILY #90 tabs 07/24/22 05/06/23 Rx mg tablet ondansetron 4 mg disintegrating 4 mg PO Q8H PRN nausea and 12/11/22 05/06/23 Rx tablet vomiting #30 tabs bupropion HCl 150 mg tablet,12 hr 150 mg PO DAILY #90 tabs 12/19/22 05/06/23 Rx sustained-release citalopram 40 mg tablet 40 mg PO DAILY #90 tabs 12/19/22 05/06/23 Rx empagliflozin 25 mg tablet 25 mg PO DAILY #90 tabs 12/19/22 05/06/23 Rx (Jardiance) insulin aspart U-100 100 unit/mL 1 sliding scale dose subcut TID 12/19/22 05/06/23 Rx (3 mL) subcutaneous pen (Novolog #15 mL FlexPen U-100 Insulin aspart) levothyroxine 200 mcg tablet 200 mcg PO DAILY #90 tabs 12/19/22 05/06/23 Rx metformin 500 mg tablet 1,000 mg PO BID #180 tabs 12/19/22 05/06/23 Rx pantoprazole 40 mg tablet,delayed 40 mg PO Q12HR #180 tabs 12/19/22 05/06/23 Rx release rosuvastatin 10 mg tablet (Crestor) 30 mg PO DAILY #270 tabs 02/20/23 05/06/23 Rx
--- NOTE | 2023-05-06 12:57 | WPDCNINT ---
Assessment and Plan Assessment and plan (1) Hypertriglyceridemia: Code(s): E78.1 - Pure hyperglyceridemia Status: Acute Assessment and Plan: Patient has chronic hypertriglyceridemia secondary to chylomicronemia requiring plasmapheresis in the past and has had multiple admissions and often requires insulin infusion. Her level was 881 on admission Will transfer patient to ICU and start her on insulin infusion and D10 infusion until triglyceride levels are less than 500.? Serial BMPs ordered to monitor electrolytes and replace accordingly I will also start patient on normal saline to prevent hyponatremia Her levels are not very high hence will hold on plasmapheresis. Continue fenofibrate and statin (2) Abdominal pain: Code(s): R10.9 - Unspecified abdominal pain Status: Acute Assessment and Plan: Patient presented with abdominal pain which is on the right flank and not epigastric in location. Abdominal exam is benign CT abdomen pelvis was unremarkable to explain pain on the right side Punctate nonobstructing left renal stone. Tiny amount of perisplenic fluid, nonspecific. UA negative, procalcitonin low Pain control Treatment of hypertriglyceridemia as above (3) Chronic pancreatitis: Code(s): K86.1 - Other chronic pancreatitis Status: Acute Assessment and Plan: Patient has history of chronic pancreatitis but her pain is not epigastric. Her lipase is normal she denies any pain with diet. He is not on any pancreas enzyme replacement Plan DVT prophylaxis -subQ heparin Stress ulcer prophylaxis -PPI Nutrition -will do a trial of clear liquid diet as tolerate Code Status - Full Code Top Installer Consult Note Consult date: 05/06/23 Reason for consult: Abdominal pain, hypertriglyceridemia HPI: Casandra Jones is a 47 year old female who is well known to [facility] due to multiple admissions in the past and with past medical history of chronic pancreatitis, hypertriglyceridemia related to chylomicronemia requiring plasmapheresis in the past, status post ports insertion for plasmapheresis, IDDM and GERD among other medical problems who presents to the ED again last night with chief complaints of abdominal pain. Patient was admitted twice in March 2023 and required plasmapheresis on her 1st admission Patient states that she has been having abdominal pain for last 1 week. She states she has chronic pain but it has been worse for the last 1 week and rates it at 6 to 7/10. She states the pain is on the right flank of the abdomen and feels different this time. She denies any pain with food. She did had nausea but no vomiting. She denied any fever chest pain shortness a breath dizziness lightheadedness dysuria hematuria hematemesis or melena. All other systems were reviewed and were negative In the ER CT scan of the abdomen pelvis was done and workup showed normal lipase but elevated triglyceride level. Patient was given IV pain medications started on IV fluids and admitted on the floor. 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
[2023-05-06 13:22] LABS: Anion Gap 2 mmol/L (8-16); Blood Urea Nitrogen 11 mg/dL (7-17); Calcium 8.2 mg/dL (8.4-10.2); Carbon Dioxide 26 mmol/L (22-30); Chloride 108 mmol/L (98-107); Estimated CRCL calculation 126 ml/min; Estimated Glomerular Filt Rate > 60; Glucose 113 mg/dL (65-110); Magnesium 2.3 mg/dL (1.6-2.3); Potassium 4.4 mmol/L (3.4-5.0); Sodium 136 mmol/L (137-145); Triglycerides 420 mg/dL (<150)
[2023-05-06] MEDS: FENOFIBRATE NANOCRYSTALLIZED 145 MG TABLET PO (15:15)
[2023-05-06] MEDS: ROSUVASTATIN 10 MG TABLET 30 MG PO (15:15)
[2023-05-06] MEDS: HEPARIN SODIUM 5,000 UNITS/ML VIAL 5000 UNITS SUB-Q ×2 (15:16→20:06)
[2023-05-06 16:26] LABS: Glucose Point of Care 94 mg/dl (65-105)
[2023-05-06] MEDS: traZODone HCL 50 MG TABLET 200 MG PO (20:01)
[2023-05-06] MEDS: PANTOPRAZOLE 40 MG TABLET PO (20:01)
[2023-05-06 20:56] LABS: Glucose Point of Care 114 mg/dl (65-105)
[2023-05-06] MEDS: INSULIN GLARGINE (*BKC) 100 UNITS/ML 20 UNITS SUB-Q (21:33)
[2023-05-07] MEDS: HYDROmorphone HCL INJ (*CRX) 1 MG/ML SYR IV PUSH ×7 (02:10→21:42)
[2023-05-07 04:36] VITALS: BP 130/62; PULSE 80; RESP 16; TEMP 36.6; O2SAT 98
[2023-05-07] MEDS: SODIUM CHLORIDE 0.9% IV 1,000 ML 100 ML IV CONT ×2 (04:48→14:49)
[2023-05-07] MEDS: LEVOTHYROXINE SODIUM 100 MCG TABLET 200 MCG PO (06:46)
[2023-05-07] MEDS: HEPARIN SODIUM 5,000 UNITS/ML VIAL 5000 UNITS SUB-Q ×3 (06:46→21:46)
[2023-05-07 07:05] LABS: Basophils Percent Auto 0.3 % (0.2-1.2); Eosinophils Absolute Auto 0.1 K/mm3 (0-0.3); Hematocrit 34.9 % (37.0-47.0); Hemoglobin 10.9 g/dL (12.0-15.0); Immature Granulocyte Absolute 0.04 K/mm3 (0.00-0.031); Immature Granulocyte Percent A 0.7 % (0-0.5); Lymphocytes Absolute Auto 2.22 K/mm3 (0.9-3.2); Lymphocytes Percent Auto 36.7 % (18.3-44.2); Mean Corpuscular HGB Conc 31.2 g/dl (32-36); Mean Corpuscular Hemoglobin 28.6 pg (26-34); Mean Corpuscular Volume 91.6 fl (80-100); Mean Platelet Volume 9.2 fl (7.4-10.4); Monocytes Absolute Auto 0.4 K/mm3 (0.1-0.6); Monocytes Percent Auto 7.1 % (2.6-8.5); Neutrophils Absolute Auto 3.3 K/mm3 (1.3-6.7); Neutrophils Percent Auto 54.2 % (45.5-73.1); Platelet Count Result 225 k/mm3 (150-375); Red Blood Count 3.81 M/mm3 (4.2-5.4); Red Cell Distribution Width 14.4 % (11.5-14.5); White Blood Count 6.1 K/mm3 (4.5-10.0)
[2023-05-07 07:21] LABS: Alanine Aminotransferase 10 U/L (6-35); Albumin Level 3.1 g/dL (3.5-5.1); Alkaline Phosphatase 54 U/L (38-126); Anion Gap 5 mmol/L (8-16); Aspartate Amino Transferase 17 U/L (14-36); Bilirubin,Total 0.3 mg/dL (0.2-1.3); Blood Urea Nitrogen 8 mg/dL (7-17); Calcium 7.8 mg/dL (8.4-10.2); Carbon Dioxide 24 mmol/L (22-30); Chloride 108 mmol/L (98-107); Estimated CRCL calculation 126 ml/min; Estimated Glomerular Filt Rate > 60; Glucose 84 mg/dL (65-110); Potassium 4.2 mmol/L (3.4-5.0); Sodium 137 mmol/L (137-145); Triglycerides 452 mg/dL (<150)
[2023-05-07] MEDS: ROSUVASTATIN 10 MG TABLET 30 MG PO (08:26)
[2023-05-07] MEDS: buPROPion HCL SR (12 HR) 150 MG TAB PO (08:26)
[2023-05-07] MEDS: EMPAGLIFLOZIN 25 MG TABLET PO (08:26)
[2023-05-07] MEDS: FENOFIBRATE NANOCRYSTALLIZED 145 MG TABLET PO (08:26)
[2023-05-07] MEDS: CHOLECALCIFEROL 1,000 UNITS TABLET 1000 UNITS PO (08:27)
[2023-05-07] MEDS: CITALOPRAM HYDROBROMIDE 20 MG TABLET 40 MG PO (08:27)
[2023-05-07] MEDS: PANTOPRAZOLE 40 MG TABLET PO ×2 (08:27→21:46)
[2023-05-07 08:28] LABS: Glucose Point of Care 75 mg/dl (65-105)
--- NOTE | 2023-05-07 09:04 | P.PNIM_ITS ---
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 * level was 881 on admission, currently 452 * ICU consulted for possible insulin drip, however, triglyceride level trending down * Consult GI, was seeing Dr. Jones * Continue current treatment at this time * Trend labs (2) Abdominal pain: Qualifiers: Abdominal location: right upper quadrant Qualified Code(s): R10.11 - Right upper quadrant pain Code(s): R10.9 - Unspecified abdominal pain Status: Acute Assessment and Plan: * Presented with abdominal pain which is on the right flank and not epigastric in location. * Abdominal exam remains unremarkable * CT abdomen pelvis was unremarkable to explain pain on the right side, Ct indicated Punctate nonobstructing left renal stone. * Tiny amount of perisplenic fluid, nonspecific. * UA negative, procalcitonin low * Pain control, Dilaudid 1mg Q3H * Treatment of hypertriglyceridemia as above * Doing well with clear liquids (3) Chronic pancreatitis: Qualifiers: Pancreatitis type: unspecified pancreatitis type Qualified Code(s): K86.1 - Other chronic pancreatitis Code(s): K86.1 - Other chronic pancreatitis Status: Acute Assessment and Plan: * History of chronic pancreatitis but pain is not epigastric, states it to be RU Q/Flank area. * Lipase is normal, 183 * denies any pain with diet. 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 Diabetes mellitus complication status: without complication Qualified Code(s): E11.9 - Type 2 diabetes mellitus without complications; Z79.4 - senior living (current) use of insulin Code(s): E11.9 - Type 2 diabetes mellitus without complications Status: Acute Assessment and Plan: * Current Glucose 84 * Continue home insulin regimen * Trend labs * Adjust therapy per glucose levels * Accu Chek AC/HS * Hypoglycemia protocols 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 Qualified Code(s): E03.8 - Other specified hypothyroidism; E06.3 - Autoimmune thyroiditis Code(s): E03.9 - Hypothyroidism, unspecified Status: Acute Assessment and Plan: * Continue levothyroxine at home dose 200mcg PO daily Plan DVT prophylaxis -subQ heparin Stress ulcer prophylaxis -PPI Nutrition -Continue clear liquid diet as tolerate Code Status - Full Code Time Spent With Patient Time: 42 minutes Time with patient: Greater than 35 minutes Subjective Date/time seen: 05/07/23 09:04 Interval history: Patient is a 47-year-old female with medical history of chronic pancreatitis, chylomicronemia syndrome who presented to the ED with complaints abdominal pain accompanied with nausea and vomiting. Currently patient is still rating her pain a 7/10. Triglycerides are slightly higher than yesterday at 452. She did state that she was nauseous is been better. She denies any chest pain, shortness a breath, fevers, chills, sweats. She did s
--- NOTE | 2023-05-07 09:04 | PM.IMPN ---
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 level was 881 on admission, currently 452 ICU consulted for possible insulin drip, however, triglyceride level trending down Consult GI, was seeing Dr. Jones Continue current treatment at this time Trend labs (2) Abdominal pain: Qualifiers: Abdominal location: right upper quadrant Qualified Code(s): R10.11 - Right upper quadrant pain Code(s): R10.9 - Unspecified abdominal pain Status: Acute Assessment and Plan: Presented with abdominal pain which is on the right flank and not epigastric in location. Abdominal exam remains unremarkable CT abdomen pelvis was unremarkable to explain pain on the right side, Ct indicated Punctate nonobstructing left renal stone. Tiny amount of perisplenic fluid, nonspecific. UA negative, procalcitonin low Pain control, Dilaudid 1mg Q3H Treatment of hypertriglyceridemia as above Doing well with clear liquids (3) Chronic pancreatitis: Qualifiers: Pancreatitis type: unspecified pancreatitis type Qualified Code(s): K86.1 - Other chronic pancreatitis Code(s): K86.1 - Other chronic pancreatitis Status: Acute Assessment and Plan: History of chronic pancreatitis but pain is not epigastric, states it to be RUQ/Flank area. Lipase is normal, 183 denies any pain with diet. 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 Qualified Code(s): E03.8 - Other specified hypothyroidism; E06.3 - Autoimmune thyroiditis Code(s): E03.9 - Hypothyroidism, unspecified Status: Acute Assessment and Plan: Continue levothyroxine at home dose 200mcg PO daily Plan DVT prophylaxis -subQ heparin Stress ulcer prophylaxis -PPI Nutrition -Continue clear liquid diet as tolerate Code Status - Full Code Time Spent With Patient Time: 42 minutes Time with patient: Greater than 35 minutes Subjective Date/time seen: 05/07/23 09:04 Interval history: Patient is a 47-year-old female with medical history of chronic pancreatitis, chylomicronemia syndrome who presented to the ED with complaints abdominal pain accompanied with nausea and vomiting. Currently patient is still rating her pain a 7/10. Triglycerides are slightly higher than yesterday at 452. She did state that she was nauseous is been better. She denies any chest pain, shortness a breath, fevers, chills, sweats. She did state that she felt like she was having some flank pain and slight pens and needles on the right flank area and was worried about it being shingles however there is no rash redness or any indication to indicate shingles. State that she felt better with plasmapheresis however her triglycerides being 452 not sure that it would. Consult GI for further recommendations Review of Systems Review of Systems: All systems reviewed & are unremarkable except as noted in HPI and below (HPI) Exam Narrative: General: well-nourished,
--- NOTE | 2023-05-07 11:38 | WPDGICN ---
Assessment and Plan Assessment and plan (1) Right flank pain: Code(s): R10.9 - Unspecified abdominal pain Status: Acute Assessment and Plan: this pain seems to be superficial. She describes it as pins and needles she is very sensitive to light palpation, hyperesthesia. This is suggestive of shingles type pain but there is no rash (2) Chronic pancreatitis: Qualifiers: Pancreatitis type: unspecified pancreatitis type Qualified Code(s): K86.1 - Other chronic pancreatitis Code(s): K86.1 - Other chronic pancreatitis Status: Acute Assessment and Plan: she says that her pancreatitis pain is the same as always (3) Hypertriglyceridemia: Code(s): E78.1 - Pure hyperglyceridemia Status: Acute Assessment and Plan: just last month her level was over 1300. (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 Status: Acute (5) Hx of pancreatitis: Code(s): Z87.19 - Personal history of other diseases of the digestive system Status: Acute Assessment and Plan: Said to be due to hyperlipidemia. CT does not show any evidence of inflammation the pancreas and lipase is normal . Plan Her acute pain, the right flank pain,I do not think is gastrointestinal. It seems to be more neuropathic as it is somewhat worse when she moves around. she denies any recent back injury or fall. I think we could advance her diet. She would like to hold off as she is not really hungry at this time. GI Consult Note Consult date/time: 05/07/23 11:38 HPI: Casandra Jones is a 47 year old female who was admitted to the emergency room 2 nights ago. She states that on Saturday she developed pain which was severe in the right side of her abdomen. It is a constant, pins and needle sensation up and down the right flank and then over towards the epigastric area. From there Then down to the right lower quadrant in that there is basically a triangle of severe pain. Also radiates towards her back. She feels it more she is moving around but she found that she could not get comfortable. Whether sitting standing or walking it did not seem to benefit her. She has a history of chronic pancreatitis which is due to elevated triglyceride levels and in fact was just recently hospitalized with nausea vomiting thought to be due to triglycerides of over 1300. She has at times need plasmapheresis to keep her triglycerides down. She also has elevated chylomicrons. She is nauseated but only vomited once a couple days ago. She has had no change in her bowel habits. She has not had a fever. She states that the pain that she always has from pancreatitis is there but is not the main factor now. She has had kidney stones in the past but this pain feels much different. 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
[2023-05-07] MEDS: diphenhydrAMINE HCl INJ 50 MG/ML VIAL 25 MG IV PUSH ×2 (11:47→21:42)
[2023-05-07 12:26] LABS: Glucose Point of Care 86 mg/dl (65-105)
[2023-05-07 14:00] VITALS: BP 130/54; PULSE 81; RESP 16; TEMP 37.2; O2SAT 100
[2023-05-07 17:12] LABS: Glucose Point of Care 90 mg/dl (65-105)
[2023-05-07] MEDS: ONDANSETRON INJ 4 MG/2 ML VIAL IV PUSH (18:33)
[2023-05-07 20:00] VITALS: PULSE 72; RESP 16; O2SAT 97
[2023-05-07 21:15] LABS: Glucose Point of Care 134 mg/dl (65-105)
[2023-05-07] MEDS: traZODone HCL 50 MG TABLET 200 MG PO (21:46)
[2023-05-07] MEDS: INSULIN GLARGINE (*BKC) 100 UNITS/ML 20 UNITS SUB-Q (21:54)
[2023-05-07 22:00] VITALS: BP 119/78; PULSE 72; RESP 16; TEMP 35.9; O2SAT 97
[2023-05-08] MEDS: SODIUM CHLORIDE 0.9% IV 1,000 ML 100 ML IV CONT ×3 (00:52→21:10)
[2023-05-08] MEDS: HYDROmorphone HCL INJ (*CRX) 1 MG/ML SYR IV PUSH ×7 (00:52→21:06)
[2023-05-08 05:17] VITALS: BP 102/45; PULSE 76; RESP 18; TEMP 36.2; O2SAT 97
[2023-05-08] MEDS: LEVOTHYROXINE SODIUM 100 MCG TABLET 200 MCG PO (06:15)
[2023-05-08] MEDS: HEPARIN SODIUM 5,000 UNITS/ML VIAL 5000 UNITS SUB-Q ×3 (06:17→20:59)
[2023-05-08 06:26] LABS: Basophils Percent Auto 0.2 % (0.2-1.2); Eosinophils Absolute Auto 0.1 K/mm3 (0-0.3); Eosinophils Percent Auto 1.3 % (0-4.4); Hematocrit 33.8 % (37.0-47.0); Hemoglobin 10.5 g/dL (12.0-15.0); Immature Granulocyte Absolute 0.02 K/mm3 (0.00-0.031); Immature Granulocyte Percent A 0.4 % (0-0.5); Lymphocytes Absolute Auto 1.93 K/mm3 (0.9-3.2); Lymphocytes Percent Auto 41.5 % (18.3-44.2); Mean Corpuscular HGB Conc 31.1 g/dl (32-36); Mean Corpuscular Hemoglobin 28.8 pg (26-34); Mean Corpuscular Volume 92.6 fl (80-100); Monocytes Absolute Auto 0.3 K/mm3 (0.1-0.6); Monocytes Percent Auto 6.9 % (2.6-8.5); Neutrophils Absolute Auto 2.3 K/mm3 (1.3-6.7); Neutrophils Percent Auto 49.7 % (45.5-73.1); Platelet Count Result 207 k/mm3 (150-375); Red Blood Count 3.65 M/mm3 (4.2-5.4); Red Cell Distribution Width 13.9 % (11.5-14.5); White Blood Count 4.7 K/mm3 (4.5-10.0)
[2023-05-08 06:44] LABS: Alanine Aminotransferase 10 U/L (6-35); Alkaline Phosphatase 50 U/L (38-126); Anion Gap 2 mmol/L (8-16); Aspartate Amino Transferase 16 U/L (14-36); Bilirubin,Total 0.3 mg/dL (0.2-1.3); Blood Urea Nitrogen 3 mg/dL (7-17); Calcium 8.2 mg/dL (8.4-10.2); Carbon Dioxide 29 mmol/L (22-30); Chloride 109 mmol/L (98-107); Estimated CRCL calculation 126 ml/min; Estimated Glomerular Filt Rate > 60; Glucose 76 mg/dL (65-110); Lipase 40 U/L (23-300); Magnesium 1.8 mg/dL (1.6-2.3); Sodium 140 mmol/L (137-145); Triglycerides 312 mg/dL (<150)
[2023-05-08 08:06] LABS: Glucose Point of Care 83 mg/dl (65-105)
[2023-05-08] MEDS: FENOFIBRATE NANOCRYSTALLIZED 145 MG TABLET PO (08:46)
[2023-05-08] MEDS: PANTOPRAZOLE 40 MG TABLET PO ×2 (08:46→20:59)
[2023-05-08] MEDS: EMPAGLIFLOZIN 25 MG TABLET PO (08:46)
[2023-05-08] MEDS: buPROPion HCL SR (12 HR) 150 MG TAB PO (08:46)
[2023-05-08] MEDS: ROSUVASTATIN 10 MG TABLET 30 MG PO (08:46)
[2023-05-08] MEDS: CHOLECALCIFEROL 1,000 UNITS TABLET 1000 UNITS PO (08:46)
[2023-05-08] MEDS: CITALOPRAM HYDROBROMIDE 20 MG TABLET 40 MG PO (08:46)
[2023-05-08 12:07] LABS: Glucose Point of Care 70 mg/dl (65-105)
[2023-05-08 12:32] LABS: Glucose Point of Care 105 mg/dl (65-105)
[2023-05-08 14:00] VITALS: BP 121/63; PULSE 75; RESP 14; TEMP 36.6; O2SAT 96
--- NOTE | 2023-05-08 14:17 | PM.IMPN ---
Progress Note: A&P Assessment and Plan (1) Chronic pancreatitis: Qualifiers: Pancreatitis type: unspecified pancreatitis type Qualified Code(s): K86.1 - Other chronic pancreatitis Code(s): K86.1 - Other chronic pancreatitis Status: Acute (2) Hypertriglyceridemia: Code(s): E78.1 - Pure hyperglyceridemia Status: Acute (3) Abdominal pain: Qualifiers: Abdominal location: right upper quadrant Qualified Code(s): R10.11 - Right upper quadrant pain Code(s): R10.9 - Unspecified abdominal pain Status: Acute (4) Obesity (BMI 30-39.9): Code(s): E66.9 - Obesity, unspecified Status: Acute Assessment and Plan: Acute on chronic pancreatitis secondary to severe hyperlipidemia. Patient has required plasmapheresis in the past due to multiple initially for acute pancreatitis. Try to say trending down was continue monitor. GI consult reviewed. IV hydration. Advance diet as tolerated. Patient asking for higher doses of pain medication which continue monitor. Morbid obesity patient advised diet exercise weight loss and she sleep study as outpatient. Abdominal pain right flank nonspecific no superficial skin changes or vesicles noted HBA1c ( goal <7.0%) , Renal functions, Liver panel every 3 months Monitor vitamin B12 levels Optimize RUKHSANA-inhibitor and statin continue Crestor, Tricor, Jardiance, insulin, levothyroxine, citalopram, Wellbutrin Routine glucose monitoring. Watch for Hypoglycemia. BMI goal < 25 Routinely check for urine microalbuminuria Routine follow-up with PCP and administrative underwriter Time Spent With Patient Time: A 35 minutes Subjective Date/time seen: 05/08/23 14:17 Interval history: Still complains of abdominal pain mostly on the right flank for otherwise appears comfortable no nausea no vomiting no headaches tolerating clear liquid requesting to advance diet Review of Systems Review of Systems: All systems reviewed & are unremarkable except as noted in HPI and below Exam Narrative: GENERAL: Well appearing, no acute distress. HEAD: Normocephalic, atraumatic. NECK: Supple. No adenopathy, no masses. RESPIRATORY: respirations nonlabored. , no rales, wheezing. CARDIOVASCULAR: Regular rate and rhythm without murmurs, . Peripheral pulses 2+ and equal bilaterally. ABDOMINAL: Soft, nontender, nondistended, no hepatosplenomegaly. Normoactive BS. MUSCULOSKELETAL: no Epigastric and no hypochondrial tenderness SKIN: Warm, dry, NEURO: A&O X3. Moves all extremities Objective Data Vital Signs Vital Signs: Vital Signs - 24 hr 05/07/23 22:00 05/07/23 20:00 05/08/23 05:17 Temperature 35.9 C L 36.2 C L Pulse Rate 72 72 76 Respiratory Rate 16 16 18 Blood Pressure 119/78 102/45 L Pulse Oximetry 97 97 97 Oxygen Delivery Room Air Intake/Output Intake/Output: Intake & Output 05/05/23 05/06/23 05/07/23 05/08/23 23:59 23:59 23:59 23:59 Intake Total 2490 1360 2520 Balance 2490 1360 2520 Meds/Results Medications: Active Medications Generic Name Dose Route Start Last Admin Trade Name Freq PRN Reason Stop Dose Admin Bupropion HCl 150 mg 05/06/23 09:55 05/08/23 08:46 Bupropion Hcl Sr (12 Hr) 150 Mg Tab PO 150 mg DAILY RAPHAEL Administration Citalopram Hydrobromide 40 mg 05/06/23 10:00 05/08/23 08:46 Citalopram Hydrobromide 20 Mg Tablet PO 40 mg DAILY RAPHAEL Administration Dextrose 12.5 gm 05/06/23 09:54 Dextrose 50% 25 Gm/50 Ml Syringe IV PUSH PRN PRN Hypoglycemia Protocol Diphenhydramine HCl 25 mg 05/06/23 10:31 05/07/23 21:42 Diphenhydramine Hcl Inj 50 Mg/Ml Vial IV PUSH 25 mg Q4H PRN Administration Itching Empagliflozin 25 mg 05/06/23 13:20 05/08/23 08:46 Empagliflozin 25 Mg Tablet PO 25 mg DAILY RAPHAEL Administration Fenofibrate 145 mg 05/06/23 13:20 05/08/23 08:46 Fenofibrate Nanocrystallized 145 Mg Tablet PO 145 mg DA
[2023-05-08 16:52] LABS: Glucose Point of Care 82 mg/dl (65-105)
[2023-05-08] MEDS: ONDANSETRON INJ 4 MG/2 ML VIAL IV PUSH ×2 (17:23→21:43)
[2023-05-08] MEDS: diphenhydrAMINE HCl INJ 50 MG/ML VIAL 25 MG IV PUSH ×2 (17:33→21:43)
[2023-05-08 20:00] VITALS: PULSE 83; RESP 18; O2SAT 96
[2023-05-08 20:38] VITALS: BP 140/47; PULSE 83; RESP 18; TEMP 36.6; O2SAT 96
[2023-05-08] MEDS: traZODone HCL 50 MG TABLET 200 MG PO (20:59)
[2023-05-08 21:14] LABS: Glucose Point of Care 150 mg/dl (65-105)
[2023-05-08] MEDS: INSULIN GLARGINE (*BKC) 100 UNITS/ML 20 UNITS SUB-Q (21:21)
[2023-05-09] MEDS: HYDROmorphone HCL INJ (*CRX) 1 MG/ML SYR IV PUSH ×7 (01:05→22:41)
[2023-05-09] MEDS: diphenhydrAMINE HCl INJ 50 MG/ML VIAL 25 MG IV PUSH ×3 (02:51→22:41)
[2023-05-09] MEDS: ONDANSETRON INJ 4 MG/2 ML VIAL IV PUSH ×4 (02:51→22:41)
[2023-05-09 05:16] VITALS: BP 101/46; PULSE 64; RESP 18; TEMP 37; O2SAT 91
[2023-05-09] MEDS: LEVOTHYROXINE SODIUM 100 MCG TABLET 200 MCG PO (06:06)
[2023-05-09] MEDS: HEPARIN SODIUM 5,000 UNITS/ML VIAL 5000 UNITS SUB-Q ×3 (06:08→22:20)
[2023-05-09] MEDS: PANTOPRAZOLE 40 MG TABLET PO ×2 (08:33→22:21)
[2023-05-09] MEDS: CITALOPRAM HYDROBROMIDE 20 MG TABLET 40 MG PO (08:33)
[2023-05-09] MEDS: EMPAGLIFLOZIN 25 MG TABLET PO (08:33)
[2023-05-09] MEDS: ROSUVASTATIN 10 MG TABLET 30 MG PO (08:33)
[2023-05-09] MEDS: buPROPion HCL SR (12 HR) 150 MG TAB PO (08:34)
[2023-05-09] MEDS: SODIUM CHLORIDE 0.9% IV 1,000 ML 100 ML IV CONT ×2 (08:34→18:55)
[2023-05-09] MEDS: FENOFIBRATE NANOCRYSTALLIZED 145 MG TABLET PO (08:34)
[2023-05-09] MEDS: CHOLECALCIFEROL 1,000 UNITS TABLET 1000 UNITS PO (08:34)
[2023-05-09 08:38] LABS: Glucose Point of Care 84 mg/dl (65-105)
[2023-05-09 09:28] LABS: Hematocrit 34.2 % (37.0-47.0); Hemoglobin 11.1 g/dL (12.0-15.0); Mean Corpuscular HGB Conc 32.5 g/dl (32-36); Mean Corpuscular Volume 89.3 fl (80-100); Platelet Count Result 204 k/mm3 (150-375); Red Blood Count 3.83 M/mm3 (4.2-5.4); Red Cell Distribution Width 13.7 % (11.5-14.5); White Blood Count 5.1 K/mm3 (4.5-10.0)
[2023-05-09 09:39] LABS: Alanine Aminotransferase 14 U/L (6-35); Albumin Level 3.2 g/dL (3.5-5.1); Alkaline Phosphatase 53 U/L (38-126); Anion Gap 4 mmol/L (8-16); Aspartate Amino Transferase 23 U/L (14-36); Bilirubin,Total 0.3 mg/dL (0.2-1.3); Calcium 8.3 mg/dL (8.4-10.2); Carbon Dioxide 31 mmol/L (22-30); Chloride 105 mmol/L (98-107); Estimated CRCL calculation 107 ml/min; Estimated Glomerular Filt Rate > 60; Glucose 66 mg/dL (65-110); Potassium 3.7 mmol/L (3.4-5.0); Sodium 140 mmol/L (137-145)
[2023-05-09 10:16] LABS: Blood Urea Nitrogen < 2 mg/dL (7-17)
[2023-05-09 11:55] LABS: Glucose Point of Care 71 mg/dl (65-105)
--- NOTE | 2023-05-09 13:42 | PM.IMPN ---
Progress Note: A&P Assessment and Plan (1) Chronic pancreatitis: Qualifiers: Pancreatitis type: unspecified pancreatitis type Qualified Code(s): K86.1 - Other chronic pancreatitis Code(s): K86.1 - Other chronic pancreatitis Status: Acute (2) Hypertriglyceridemia: Code(s): E78.1 - Pure hyperglyceridemia Status: Acute (3) Abdominal pain: Qualifiers: Abdominal location: right upper quadrant Qualified Code(s): R10.11 - Right upper quadrant pain Code(s): R10.9 - Unspecified abdominal pain Status: Acute (4) Obesity (BMI 30-39.9): Code(s): E66.9 - Obesity, unspecified Status: Acute Assessment and Plan: Acute on chronic pancreatitis secondary to severe hyperlipidemia. Patient has required plasmapheresis in the past due to multiple initially for acute pancreatitis. GI consult reviewed. IV hydration. Advance diet as tolerated. Patient asking for higher doses of pain medication which continue monitor. Morbid obesity patient advised diet exercise weight loss and she sleep study as outpatient. Abdominal pain right flank nonspecific no superficial skin changes or vesicles noted HBA1c ( goal <7.0%) , Renal functions, Liver panel every 3 months Monitor vitamin B12 levels Optimize RUKHSANA-inhibitor and statin continue Crestor, Tricor, Jardiance, insulin, levothyroxine, citalopram, Wellbutrin Routine glucose monitoring. Watch for Hypoglycemia. 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 dc am DVT prophylaxis. GI prophylaxis. All records reviewed Discussed plan of care with the nursing staff and with the patient in detail. Answered all questions and concerns from the patient. All labs have been reviewed. Code status updated dictation may have been done utilizing a voice recognition system. Attempts have been made to correct errors. However, there may be uncorrected grammatical, spelling, and recognition errors present. Time Spent With Patient Time: A 35 minutes Subjective Date/time seen: 05/09/23 13:42 Interval history: Still complains of abdominal pain mostly on the right flank for otherwise appears comfortable no nausea no vomiting no headaches tolerating clear liquid requesting to advance diet Review of Systems Review of Systems: All systems reviewed & are unremarkable except as noted in HPI and below Exam Narrative: GENERAL: Well appearing, no acute distress. HEAD: Normocephalic, atraumatic. NECK: Supple. No adenopathy, no masses. RESPIRATORY: respirations nonlabored. , no rales, wheezing. CARDIOVASCULAR: Regular rate and rhythm without murmurs, . Peripheral pulses 2+ and equal bilaterally. ABDOMINAL: Soft, nontender, nondistended, no hepatosplenomegaly. Normoactive BS. MUSCULOSKELETAL: no Epigastric and no hypochondrial tenderness SKIN: Warm, dry, NEURO: A&O X3. Moves all extremities Objective Data Vital Signs Vital Signs: Vital Signs - 24 hr 05/08/23 14:00 05/08/23 20:38 05/08/23 20:00 Temperature 36.6 C 36.6 C Pulse Rate 75 83 83 Respiratory Rate 14 18 18 Blood Pressure 121/63 140/47 L Pulse Oximetry 96 96 96 Oxygen Delivery Room Air 05/09/23 05:16 05/09/23 08:35 Temperature 37.0 C Pulse Rate 64 Respiratory Rate 18 Blood Pressure 101/46 L Pulse Oximetry 91 Oxygen Delivery Room Air Intake/Output Intake/Output: Intake & Output 05/06/23 05/07/23 05/08/23 05/09/23 23:59 23:59 23:59 23:59 Intake Total 2490 1360 4360 1240 Balance 2490 1360 4360 1240 Meds/Results Medications: Active Medications Generic Name Dose Route Start Last Admin Trade Name Freq PRN Reason Stop Dose Admin Bupropion HCl 150 mg 05/06/23 09:55 05/09/23 08:34 Bupropion Hcl Sr (12 Hr) 150 Mg Tab PO 150 mg DAILY RAPHAEL Administration Citalopram Hydrobromide 40 mg 05/06/23 10:00 05/09/23 08:33 Citalopram Hydrobrom
[2023-05-09 14:00] VITALS: BP 126/68; PULSE 74; RESP 14; TEMP 36.6; O2SAT 99
[2023-05-09 17:17] LABS: Glucose Point of Care 90 mg/dl (65-105)
[2023-05-09 20:48] LABS: Glucose Point of Care 216 mg/dl (65-105)
[2023-05-09 21:45] VITALS: BP 150/71; PULSE 58; RESP 12; TEMP 36.3; O2SAT 94
[2023-05-09] MEDS: traZODone HCL 50 MG TABLET 200 MG PO (22:20)
[2023-05-09] MEDS: INSULIN GLARGINE (*BKC) 100 UNITS/ML 20 UNITS SUB-Q (22:35)
[2023-05-09] MEDS: INSULIN ASPART (*BKC) 100 UNITS/ML SUB-Q ×2 (22:36→22:37)
[2023-05-10] MEDS: HYDROmorphone HCL INJ (*CRX) 1 MG/ML SYR IV PUSH ×5 (02:30→16:09)
[2023-05-10] MEDS: SODIUM CHLORIDE 0.9% IV 1,000 ML 100 ML IV CONT (05:07)
[2023-05-10] MEDS: HEPARIN SODIUM 5,000 UNITS/ML VIAL 5000 UNITS SUB-Q ×2 (05:10→12:54)
[2023-05-10] MEDS: LEVOTHYROXINE SODIUM 100 MCG TABLET 200 MCG PO (05:12)
[2023-05-10 06:00] VITALS: BP 108/56; PULSE 74; RESP 12; TEMP 36.3; O2SAT 92
[2023-05-10 08:05] LABS: Glucose Point of Care 92 mg/dl (65-105)
[2023-05-10] MEDS: FENOFIBRATE NANOCRYSTALLIZED 145 MG TABLET PO (08:13)
[2023-05-10] MEDS: EMPAGLIFLOZIN 25 MG TABLET PO (08:13)
[2023-05-10] MEDS: CITALOPRAM HYDROBROMIDE 20 MG TABLET 40 MG PO (08:13)
[2023-05-10] MEDS: PANTOPRAZOLE 40 MG TABLET PO (08:13)
[2023-05-10] MEDS: ROSUVASTATIN 10 MG TABLET 30 MG PO (08:13)
[2023-05-10] MEDS: buPROPion HCL SR (12 HR) 150 MG TAB PO (08:13)
[2023-05-10] MEDS: CHOLECALCIFEROL 1,000 UNITS TABLET 1000 UNITS PO (08:13)
[2023-05-10] MEDS: diphenhydrAMINE HCl INJ 50 MG/ML VIAL 25 MG IV PUSH ×2 (08:16→16:15)
[2023-05-10] MEDS: ONDANSETRON INJ 4 MG/2 ML VIAL IV PUSH ×2 (09:01→16:15)
[2023-05-10 11:46] LABS: Glucose Point of Care 165 mg/dl (65-105)
--- NOTE | 2023-05-10 12:40 | PM.DS ---
DS: Admitting Diagnosis Discharge Date 05/10/2023 Admitting Diagnosis Chronic pancreatitis DS: Discharge Diagnosis Discharge Diagnosis (1) Right flank pain: Code(s): R10.9 - Unspecified abdominal pain Status: Acute (2) Abdominal pain: Qualifiers: Abdominal location: right upper quadrant Qualified Code(s): R10.11 - Right upper quadrant pain Code(s): R10.9 - Unspecified abdominal pain Status: Acute (3) Chronic pancreatitis: Qualifiers: Pancreatitis type: unspecified pancreatitis type Qualified Code(s): K86.1 - Other chronic pancreatitis Code(s): K86.1 - Other chronic pancreatitis Status: Acute (4) Pancreatitis: Code(s): K85.90 - Acute pancreatitis without necrosis or infection, unspecified Status: Acute (5) Hypertriglyceridemia: Code(s): E78.1 - Pure hyperglyceridemia Status: Acute DS: Summary Hospital Course Hospital Course: Patient is a 47-year-old female came to the hospital from pain has had multiple episodes of chronic pancreatitis she has pain patient discharged in March with a similar complaint takes narcotics at home for pain control. Patient was seen by GI to stay with signs any worsening pancreatitis noted no end-organ damage. Patient was managed with NPO and pain medication and then switched to clear liquid and currently on regular diet. Patient still complains of some prickly sensation of the right flank there is no skin changes no shortness noted. 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 He received all home medications. Patient has been advised to follow with the primary care physician 1 week and GI in 1 week Status at Discharge Functional status at discharge: independent ambulation Time Spent with Patient Time attestation: Total time spent providing and/or coordinating discharge services: Exam Narrative: GENERAL: Well appearing, no acute distress. HEAD: Normocephalic, atraumatic. NECK: Supple. No adenopathy, no masses. RESPIRATORY: respirations nonlabored. , no rales, wheezing. CARDIOVASCULAR: Regular rate and rhythm without murmurs, . Peripheral pulses 2+ and equal bilaterally. ABDOMINAL: Soft, nontender, nondistended, no hepatosplenomegaly. Normoactive BS. MUSCULOSKELETAL: no Epigastric and no hypochondrial tenderness SKIN: Warm, dry, NEURO: A&O X3. Moves all extremities DS: Data Data Completed and Pending Labs on day of discharge: Labs from last 24 hours 05/10/23 05/10/23 05/09/23 11:40 07:56 19:59 POC Capillary Glucose 165 H 92 216 H 05/09/23 17:13 POC Capillary Glucose 90 Discharge Plan Discharge Consulting providers: Roland Loving Discharging Clinician: Guilherme Hernandez Patient Disposition: Home, Self-Care Activity: as tolerated Diet: low fat and high fiber Patient Instructions: Antibiotic Form, How to Stop Smoking (DC) Stand Alone Forms: General Discharge Information Follow-up/Referrals: Roland Loving MD [Physician] - Mauri Jaime DO [Primary Care Provider] - Discharge Medications: Continued bupropion HCl 150 mg tablet sustained-release 12 hr 150 mg PO DAILY Qty: 90 1RF citalopram 40 mg tablet 40 mg PO DAILY Qty: 90 1RF Rx Instructions: TAKE 1 TABLET BY MOUTH EVERY DAY Jardiance 25 mg tablet 25 mg PO DAILY Qty: 90 1RF insulin aspart U-100 [Novolog FlexPen U-100 Insulin] 100 unit/mL (3 mL) insulin pen 1 sliding scale dose subcut TID Qty: 15 1RF Rx Instructions: with meals on sliding scale 141-160-4u,161-180-5 u,181-200-6u,201-220-7u,221-240-8u,241-260-9u,261-280-10u,281-300-11u,301--320-12u,321 and [id number] levothyroxine 200 mcg tablet 200 mcg PO DAILY Qty: 90 1RF metformin 500 mg tablet 1,000 mg PO BID Qty: 180 1RF Rx Instructions: with morning & evening
[2023-05-10 14:00] VITALS: BP 129/60; PULSE 72; RESP 18; TEMP 36.6; O2SAT 97
== END 2023-05-10 16:55 | disposition home or self-care (01) | DRG 440 ==
LOC: ANHED 05-06 06:30 → ANH3MEDSUR 05-06 07:26
PROVIDERS: Internal Medicine; Nurse Practitioner; Admitting Provider Internal Medicine; Emergency Provider Emergency Medicine; PCP Internal Medicine; Visit Provider Internal Medicine
DX: K85.90 Acute pancreatitis without necrosis or infection, unspecified (principal); K86.1 Other chronic pancreatitis; E78.1 Pure hyperglyceridemia; E66.01 Morbid (severe) obesity due to excess calories; E78.3 Hyperchylomicronemia; E78.5 Hyperlipidemia, unspecified; E06.3 Autoimmune thyroiditis; E11.9 Type 2 diabetes mellitus without complications; F41.9 Anxiety disorder, unspecified; F17.210 Nicotine dependence, cigarettes, uncomplicated; K21.9 Gastro-esophageal reflux disease without esophagitis; Z90.49 Acquired absence of other specified parts of digestive tract; Z90.710 Acquired absence of both cervix and uterus; Z68.31 Body mass index [BMI] 31.0-31.9, adult; Z79.4 Long term (current) use of insulin; Z79.84 Long term (current) use of oral hypoglycemic drugs; Z79.899 Other long term (current) drug therapy
CPT/HCPCS: 36415; 74177; 80048; 80053; 81003; 82010; 82803; 82948; 83605; 83690; 83735; 84100; 84145; 84478; 85025; 85027; 85610; 85730; 93005; 96361; 96366; 96375; 96376; 99285; A9270; G0378; J1170; J1200; J1644; J1815; J2405; J3475; J7030; Q9967

== ENCOUNTER 2023-05-21 15:37 | Outpatient (CLI) | payer MEDICARE, SELFPAY ==
[2023-05-21 16:22] LABS: Creatinine Urine 62.4 mg/dL
[2023-05-21 16:27] LABS: MALB Creatinine Ratio 10.1 mg/g (0-30); Microalbumin Urine Random 6.3 mg/L (0-16.7)
[2023-05-21 16:35] LABS: LDL Cholesterol Direct 114 mg/dL
[2023-05-21 17:03] LABS: Cholesterol 265 mg/dL (0-200); HDL Direct 40 mg/dL
[2023-05-21 17:06] LABS: Triglycerides 628 mg/dL (<150)
[2023-05-21 17:14] LABS: Free T4 Free Thyroxine 1.31 ng/mL (0.78-2.19)
== END 2023-05-21 15:38 | disposition home or self-care (01) ==
LOC: ANHLAB 15:39
PROVIDERS: PCP Nurse Practitioner Family; Visit Provider Physician Assistant
DX: E78.3 Hyperchylomicronemia (principal); E46 Unspecified protein-calorie malnutrition; E11.9 Type 2 diabetes mellitus without complications; E66.3 Overweight; N83.209 Unspecified ovarian cyst, unspecified side
CPT/HCPCS: 36415; 80061; 82043; 84439; 84443

== ENCOUNTER 2023-06-14 21:30 | Inpatient (IN) | payer MEDICARE, SELFPAY ==
--- NOTE | ~2023-06-14 | CT_ITS ---
EXAMINATION: CT abdomen pelvis w con DATE: 06/15/2023 03:34 INDICATION: Epigastric pain and right lower quadrant abdominal pain. TECHNIQUE: Computed tomography (CT) of the abdomen and pelvis was performed with 100 mL Omnipaque-350 intravenous contrast. Automated exposure control and iterative reconstruction technique were employe d. The dose-length product was 648.24 mGy-cm. COMPARISON: 05/06/2023 FINDINGS: Mild dependent atelectasis in the bilateral lower lobes. Heart size is normal. No pericardial or pleu ral effusion. Small sliding-type hiatal hernia. Focal hepatic steatosis at the ligamentum teres along the gallbladder fossa. Gallbladder, pancreas, bilateral adrenal glands are normal. Spleen is normal with no interval change in a chronic small crescentic fluid collection along its caudal margin which can be seen dating back to 04/03/2022 with additional minimal perisplenic fluid dating back at least t o 02/10/2018 weeks of doubtful clinical significance. There are couple punctate <2 mm nonobstructing stones at the upper pole the right kidney and interpolar region of the left kidney. There are few sca ttered colonic diverticula without adjacent inflammatory stranding to suggest diverticulitis. No gus l obstruction. Bladder is normal. The uterus is not identified and has likely been surgically resecte d. No pathologically enlarged abdominal or pelvic lymphadenopathy. Mild thoracolumbar spondylosis. IMPRESSION: 1. Bilateral punctate nonobstructing nephrolithiasis. Reviewed, dictated and finalized at location A. 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
[2023-06-14 21:41] VITALS: BP 134/78; PULSE 93; RESP 18; TEMP 36.2; O2SAT 99
[2023-06-14 21:48] LABS: Glucose Point of Care 430 mg/dl (65-105)
[2023-06-15] VITALS (33 sets, daily range): BP systolic 88–136; BP diastolic 59–78; PULSE 14–95; RESP 11–22; TEMP 36.5–36.7; O2SAT 91–99
[2023-06-15 01:39] LABS: Basophils Percent Auto 0.3 % (0.2-1.2); Eosinophils Absolute Auto 0.1 K/mm3 (0-0.3); Eosinophils Percent Auto 0.6 % (0-4.4); Hematocrit 41.7 % (37.0-47.0); Hemoglobin 13.7 g/dL (12.0-15.0); Immature Granulocyte Absolute 0.05 K/mm3 (0.00-0.031); Immature Granulocyte Percent A 0.5 % (0-0.5); Lymphocytes Absolute Auto 2.75 K/mm3 (0.9-3.2); Lymphocytes Percent Auto 28.6 % (18.3-44.2); Mean Corpuscular HGB Conc 32.9 g/dl (32-36); Mean Corpuscular Hemoglobin 28.8 pg (26-34); Mean Corpuscular Volume 87.6 fl (80-100); Monocytes Absolute Auto 0.5 K/mm3 (0.1-0.6); Monocytes Percent Auto 5.2 % (2.6-8.5); Neutrophils Absolute Auto 6.2 K/mm3 (1.3-6.7); Neutrophils Percent Auto 64.8 % (45.5-73.1); Platelet Count Result 275 k/mm3 (150-375); Red Blood Count 4.76 M/mm3 (4.2-5.4); Red Cell Distribution Width 13.4 % (11.5-14.5); White Blood Count 9.6 K/mm3 (4.5-10.0)
[2023-06-15 01:42] LABS: Appearance Urine Clear (Clear); Bilirubin Urine Negative (Negative); Blood Urine Negative (Negative); Color Urine Yellow (Yellow); Glucose Urine UA 3+ mg/dL (Negative); Ketones Urine Negative (Negative); Leukocyte Esterase Ur Negative LEU/UL (Negative); Nitrate Urine Negative (Negative); Protein Urine Negative (Negative); Specific Grav Ur 1.035 (1.001-1.035); Urobilinogen Urine 0.2 mg/dL (<2.0)
[2023-06-15 01:51] LABS: Alanine Aminotransferase 18 U/L (6-35); Albumin Level 4.2 g/dL (3.5-5.1); Alkaline Phosphatase 96 U/L (38-126); Anion Gap 9 mmol/L (8-16); Aspartate Amino Transferase 21 U/L (14-36); Bilirubin,Total 0.4 mg/dL (0.2-1.3); Blood Urea Nitrogen 12 mg/dL (7-17); Calcium 9.5 mg/dL (8.4-10.2); Carbon Dioxide 24 mmol/L (22-30); Chloride 99 mmol/L (98-107); Estimated CRCL calculation 123 ml/min; Estimated Glomerular Filt Rate > 60; Glucose 341 mg/dL (65-110); Lipase 144 U/L (23-300); Potassium 4.3 mmol/L (3.4-5.0); Sodium 132 mmol/L (137-145)
[2023-06-15 02:06] LABS: Add Urine Microscopic? NO
[2023-06-15] MEDS: ONDANSETRON INJ 4 MG/2 ML VIAL IV PUSH (03:15)
[2023-06-15] MEDS: SODIUM CHLORIDE 0.9% IV 2,000 ML 999 ML IV CONT (03:16)
[2023-06-15] MEDS: HYDROmorphone HCL INJ (*CRX) 1 MG/ML SYR IV PUSH ×3 (03:18→06:47)
--- NOTE | 2023-06-15 03:38 | ED.GENADULT ---
HPI - General Adult General Chief complaint: Abdominal Pain Stated complaint: abd pain Time Seen by Provider: 06/15/23 01:57 History of Present Illness HPI narrative: this is a 47 history triglyceride pancreatitis presenting for abdominal. Patient has a sharp pain the center of her abdomen that radiates to her back and RLQ for the last 3 days. She had been taking opiate pain medications home with no relief. Patient got too bad so she came the emergency department for evaluation today. Patient has had some nausea vomiting. No diarrhea. Also notes that her blood sugars have been more elevated than usual. Related Data Home Medications Medication Instructions Recorded Confirmed insulin degludec 200 unit/mL (3 40 unit subcut DAILY 04/06/23 06/04/23 mL) subcutaneous pen (Tresiba FlexTouch U-200 insulin) trazodone 100 mg tablet 200 mg PO HS 04/18/23 06/04/23 pantoprazole 40 mg tablet,delayed 40 mg PO DAILY 06/04/23 06/04/23 release Allergies Allergy/AdvReac Type Severity Reaction Status Date / Time adhesive tape Allergy Mild Rash Verified 06/06/23 15:15 [place] pepper [green pepper] Allergy Unknown unknown Verified 06/06/23 15:15 sucralose Allergy Migraine Verified 06/06/23 15:15 [From Splenda (sucralose)] Artificial Sweetners AdvReac Migraine Uncoded 06/06/23 15:15 PMFSH Past Medical History Medical History Allergic rhinitis Anxiety Chronic pancreatitis Chylomicronemia syndrome GERD (gastroesophageal reflux disease) Headache Hyperlipemia Hypertriglyceridemia 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buse Hypertension Mother Hypothyroid Cerebrovascular accident Grandparent Skin cancer Colon cancer Heart disease Hypothyroid Cerebrovascular accident Sibling Hypothyroid Kidney disorder Hypertension Autoimmune disorder Social History Social History Social History: She smokes a pack a day for the past 30 years. No alcohol or drug use. She has 2 dogs and a cat at home. Surrogate medical decision maker: José Miguel Jones, spouse. Code status: Full Smoking packs per day: 0.5 Smoking cigarettes per day: 10.0 Years smoked: 30 Smoking pack-years: 15.00 Smoking status: Current every day smoker Tobacco type: cigarettes Second hand tobacco smoke exposure: Yes Alcohol intake: never Drinks per week: 0 Substance use: never Substance use type: does not use Do You Feel Safe in your Home?: Yes Lack of Transportation: No Lack of Food: Never True Current Housing: I Have Housing Concerned About Future Housing: No Difficulty Paying Gas/Electric Bills: No Difficulty Paying for Meds: No Currently Unemployed: No Education: Don't Know Difficulty w/ Childcare or Family Care: No Living arrangements: with family Spiritual care concerns: No Exam Narrative: APPEARANCE: No apparent distress. Head: atraumatic. EYES: EOMI, NOSE: Atraumatic NECK: Trachea midline RESPIRATORY: No increased rate of breathing CARDIOVASCULAR: RRR, ABDOMINAL: Non-distended MUSCULOSKELETAl: No obvious deformities NEURO: Alert. Moving 4/4 extremities SKIN:: Warm, dry. Normal color PSYCHIATRIC: Normal affect
[2023-06-15] MEDS: ACETAMINOPHEN 500 MG TABLET 1000 MG PO (04:55)
[2023-06-15] MEDS: KETOROLAC 15 MG/ML VIAL (*BKC) IV PUSH (04:56)
[2023-06-15 06:15] LABS: Triglycerides 1856 mg/dL (<150)
--- NOTE | 2023-06-15 07:15 | PC.NURSE ---
Report to CLAU Ford.
[2023-06-15] MEDS: DEXTROSE 5%/0.45% SOD CHL 1,000 ML 150 ML IV CONT ×2 (08:12→15:16)
[2023-06-15] MEDS: INSULIN HUMAN REGULAR (*BKC) 100 UNITS in SODIUM CHLORIDE 0.9% IV 99 ML 8.2 UNITS IV CONT ×2 (08:13→08:50)
--- NOTE | 2023-06-15 08:15 | PC.NURSE ---
requesting benadryl for itching. Reports adhesive causes her to itch
[2023-06-15] MEDS: diphenhydrAMINE HCl CAP 25 MG CAPSULE PO (08:19)
[2023-06-15 08:50] LABS: Glucose Point of Care 217 mg/dl (65-105)
--- NOTE | 2023-06-15 09:14 | WPDCNINT ---
Assessment and Plan Assessment and plan (1) Hypertriglyceridemia: Code(s): E78.1 - Pure hyperglyceridemia Status: Acute Assessment and Plan: Triglyceride level of 1856 associated with abdominal pain Patient has been started on insulin infusion and dextrose fluids. Serial BMP will be done to monitor electrolytes Consult nephrology set of plasmapheresis. Patient has port for plasmapheresis. In the past patient has required multiple days of insulin infusion along with significant amount of IV fluids leading to prolonged hospitalization to bring her triglyceride levels down to acceptable level. Continue fenofibrate and statin (2) Abdominal pain: Qualifiers: Abdominal location: right upper quadrant Qualified Code(s): R10.11 - Right upper quadrant pain Code(s): R10.9 - Unspecified abdominal pain Status: Acute Assessment and Plan: Likely secondary to chronic pancreatitis and hypertriglyceridemia CT scan was negative and lipase is normal Patient is not on pancreatic enzyme replacement as an outpatient Pain control Antiemetics (3) Chronic pancreatitis: Qualifiers: Pancreatitis type: unspecified pancreatitis type Qualified Code(s): K86.1 - Other chronic pancreatitis Code(s): K86.1 - Other chronic pancreatitis Status: Acute Assessment and Plan: See above (4) Insulin dependent diabetes mellitus: Status: Chronic Assessment and Plan: Currently on insulin infusion Anion gap is normal 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 Qualified Code(s): E03.8 - Other specified hypothyroidism; E06.3 - Autoimmune thyroiditis Code(s): E03.9 - Hypothyroidism, unspecified Status: Acute Assessment and Plan: Continue levothyroxine (6) GERD (gastroesophageal reflux disease): Qualifiers: Esophagitis presence: esophagitis presence not specified Qualified Code(s): K21.9 - Gastro-esophageal reflux disease without esophagitis Code(s): K21.9 - Gastro-esophageal reflux disease without esophagitis Status: Acute Assessment and Plan: Continue PPI Plan DVT prophylaxis -Lovenox Stress ulcer prophylaxis -PPI Nutrition -npo. Code Status - Full Code Total Critical Care Time - 30 minutes Due to a high probability of clinically significant, life threatening deterioration, the patient required my highest level of preparedness to intervene emergently and I personally spent this critical care time directly and personally managing the patient. This critical care time included obtaining a history; examining the patient; pulse oximetry; ordering and review of studies; arranging urgent treatment with development of a management plan; evaluation of patient's response to treatment; frequent reassessment; and discussions with other providers. It was exclusive of separately billable procedures and treating other patients and teaching time. Please see Assessment and Plan section and the rest of the note for further information on patient assessment and treatment [facility] Specialist Consult Note Consult date: 06/15/23 Reason for consult: Hypertriglyceridemia HPI: Casandra Jones is a 47 year old female 47 year old female who is well known to [facility] due to multiple admissions in the past and with past medical history of chronic pancreatitis, hypertriglyceridemia related to chylomicronemia requiring plasmapheresis in the past, status post ports insertion for plasmapheresis, IDDM and GERD among other medical problems who presents to the ED again last night with chief complaints of abdominal pain.? Patient was admitted twice in March 2023 and once in April and required plasmapheresis on her admission in March. Patient states that she has been having abdominal pain for last 3 days.? She states she has chronic pain but it has been worse for the last 3 days and rates it at 8-9/ 1
[2023-06-15] MEDS: HYDROmorphone HCL INJ (*CRX) 1 MG/ML SYR 0.5 MG IV PUSH ×4 (09:20→20:49)
--- NOTE | 2023-06-15 09:23 | ADMGEN ---
This patient, Casandra Jones, was admitted to Intensive Care Unit-10. Patient/family oriented to hospital policies and general routines including ID bracelet, bed and alarms, visiting hours, pain management, procedures, bathroom and other care routines, personal items, smoking policy, room service/diet, and visiting hours. Information on how to activate the Rapid Response Team has been discussed. Patient/Family are encouraged to report perceived risks to care and to ask questions if they do not understand what they are told or what they should do.
[2023-06-15 09:41] LABS: Anion Gap 4 mmol/L (8-16); Blood Urea Nitrogen 9 mg/dL (7-17); Calcium 7.9 mg/dL (8.4-10.2); Carbon Dioxide 24 mmol/L (22-30); Chloride 105 mmol/L (98-107); Estimated CRCL calculation 149 ml/min; Estimated Glomerular Filt Rate > 60; Glucose 152 mg/dL (65-110); Magnesium 1.5 mg/dL (1.6-2.3); Phosphorus 3.3 mg/dL (2.5-4.5); Potassium 3.5 mmol/L (3.4-5.0); Sodium 133 mmol/L (137-145)
[2023-06-15 10:03] LABS: Glucose Point of Care 132 mg/dl (65-105)
[2023-06-15] MEDS: FENOFIBRATE NANOCRYSTALLIZED 145 MG TABLET PO (10:05)
--- NOTE | 2023-06-15 10:05 | PM.CNNEP ---
Assessment and Plan Assessment and plan (1) Hypertriglyceridemia: Code(s): E78.1 - Pure hyperglyceridemia Status: Acute Assessment and Plan: the patient has a very high triglyceride level. Generally insulin drip takes days or longer to bring her triglyceride levels down. In the meantime she does have abdominal pain. Even though she does have a normal lipase she is at risk for worsened acute pancreatic inflammation and it would be prudent to do a session of plasmapheresis. Usually 1 session does the job of getting the triglyceride below 600. We discussed that the high triglyceride is probably being fueled by the high sugars. She is working with an special machine stitcher to try to get these under better control. Long discussion. (2) Chronic pancreatitis: Code(s): K86.1 - Other chronic pancreatitis Status: Acute Assessment and Plan: Due to recurrent pancreatitis (3) Insulin dependent diabetes mellitus: Status: Chronic Assessment and Plan: patient is working with endocrinology about this. History of Present Illness Reason for Consult Consult date: 06/15/23 Chief Complaint Chief complaint: TG Pancreatitis History of Present Illness Narrative: Casandra is a very pleasant 47-year-old lady who has multiple medical problems including diabetes, chronic hypertriglyceridemia, recurrent pancreatitis, anxiety, allergic rhinitis, GERD, who has recurrent episodes of severe hypertriglyceridemia. She has had pancreatitis in the past several times. She is to go to [facility] to get routine plasmapheresis but then she cut back on how much she went and eventually stopped going. Over the last couple of years she has come in and out of the hospital with this problem. She has 2 ports that are used for the plasmapheresis. She went to see the special machine stitcher to help with her elevated triglyceride levels and her diabetes. a couple of weeks ago. After that her glucose levels had been pretty well controlled with fasting glucose between 100 and 130. Unfortunately, in the last few days her sugar levels went up to 300 and she could not get them down. That is when her belly started hurting again. She came to the emergency room and her triglyceride levels were 1800. She was admitted to the ICU and placed on insulin drip. She continues to have belly pain. She says before the sugars went up in the triglycerides want upper belly pain was better. In the office with the special machine stitcher her drug is her levels were about 600. Review of Systems Constitutional: Constitutional: Reports no additional constitutional complaints Eyes: Eyes: Reports no additional eye complaints ENT: Reports system reviewed and no additional complaints, except as documented Cardiovascular: Cardiovascular: Reports no additional cardiovascular complaints Respiratory: Respiratory: Reports no additional respiratory complaints Gastrointestinal: Gastrointestinal: Reports no additional gastrointestinal complaints Genitourinary: Genitourinary: Reports no additional female genitourinary complaints Musculoskeletal: Musculoskeletal: Reports no additional musculoskeletal complaints Integumentary/Breasts: Skin/Breast: Reports system reviewed and no additional complaints, except as docu Neurologic: Reports system reviewed and no additional complaints, except as documented Psychiatric: Psychiatric: Reports no additional psychiatric complaints Endocrine: Endocrine: Reports no additional endocrine complaints PMFSH Past Medical History Medical History Allergic rhinitis Anxiety Chronic pancreatitis Chylomicronemia syndrome GERD (gastroesophageal reflux disease) Headache Hyperlipemia Hypertriglyceridemia 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
[2023-06-15 10:55] LABS: Glucose Point of Care 104 mg/dl (65-105)
--- NOTE | 2023-06-15 11:03 | PC.NURSE ---
Updated Plasmapheresis RNNicole, with pertinent information. Nicole to return phone call to update staff with Albumin dose.
[2023-06-15 11:35] LABS: MRSA (PCR) NOT DETECTED (NOT DETECTE)
[2023-06-15] MEDS: HYDROcodone/acetaminophen (*CRX) 5-325 MG TABLET 1 TAB PO ×2 (11:46→18:31)
[2023-06-15 12:20] LABS: Glucose Point of Care 116 mg/dl (65-105)
[2023-06-15] MEDS: POTASSIUM CHLORIDE INJ 40 MEQ in SODIUM CHLORIDE 0.9% IV 500 ML 130 MEQ IVPB (13:13)
[2023-06-15] MEDS: MAGNESIUM SULF 2 GM/WATER 50ML 2 GM/50 ML BAG IVPB (13:13)
[2023-06-15 13:23] LABS: Glucose Point of Care 136 mg/dl (65-105)
[2023-06-15 13:36] LABS: Anion Gap 3 mmol/L (8-16); Blood Urea Nitrogen 8 mg/dL (7-17); Calcium 7.7 mg/dL (8.4-10.2); Carbon Dioxide 27 mmol/L (22-30); Chloride 103 mmol/L (98-107); Estimated CRCL calculation 149 ml/min; Estimated Glomerular Filt Rate > 60; Glucose 119 mg/dL (65-110); Potassium 3.6 mmol/L (3.4-5.0); Sodium 133 mmol/L (137-145)
[2023-06-15 13:59] LABS: Glucose Point of Care 127 mg/dl (65-105)
--- NOTE | 2023-06-15 14:02 | PC.NURSE ---
Plasmapheresis team on their way to [facility].
[2023-06-15 15:13] LABS: Glucose Point of Care 117 mg/dl (65-105)
[2023-06-15] MEDS: ALTEPLASE 2 MG VIAL (CATHFLO) IV PUSH ×2 (16:10)
[2023-06-15 16:26] LABS: Glucose Point of Care 139 mg/dl (65-105)
[2023-06-15] MEDS: HEPARIN SODIUM, PORCINE 10,000 UNITS/10 ML VIAL 10000 UNITS IV PUSH (16:40)
[2023-06-15] MEDS: SODIUM CHLORIDE 0.9% IV 1,000 ML 1000 ML IV CONT (16:40)
[2023-06-15] MEDS: CALCIUM GLUC 2,000 MG/NS 100ML 2,000 MG/100 ML BAG 100 MG IVPB (16:40)
--- NOTE | 2023-06-15 16:40 | PC.NURSE ---
Plasmapheresis initiated. Dr. Mcgrath updated on blood pressure. Mohsen-Synephrine gtt ordered to keep systolic blood pressure greater than 90.
--- NOTE | 2023-06-15 16:50 | PM.IMHP ---
H&P: HPI History of Present Illness Date/Time: 06/15/23 16:50 Chief Complaint: Abdominal pain Narrative: Casandra Jones is a 47 yo F with a mHx significant for obesity, depression, NIDDM, dyslipidemia, Hypothyroidism, Pancretitis. Over the last few days, she developed familiar epigastric abdominal pains; they were sharp, rated 8-10; radiates to her back and RLQ for the last 3 days.? S he had been taking opiate pain medications home with no relief.? Patient got too bad so she came the emergency department for evaluation today.? Patient has had? some nausea vomiting.? No diarrhea.? She denies fevers, diarrhea, skin/joint changes. She does smoke tobacco, about 0.5ppd; denies nicotine and recreational/illicit drug use.' Significant findings: Na 133 BUN 8 Cr 0.40 GFR>60 Triglycerides 1856 Lipase 144 CTAP: Mild dependent atelectasis in the bilateral lower lobes. Heart size is normal. No pericardial or pleural effusion. Small sliding-type hiatal hernia. Focal hepatic steatosis at the ligamentum teres along the gallbladder fossa. Gallbladder, pancreas, bilateral adrenal glands are normal. Spleen is normal with no interval change in a chronic small crescentic fluid collection along its caudal margin which can be seen dating back to 04/03/2022 with additional minimal perisplenic fluid dating back at least to 02/10/2018 weeks of doubtful clinical significance. There are couple punctate <2 mm nonobstructing stones at the upper pole the right kidney and interpolar region of the left kidney. There are few scattered colonic diverticula without adjacent inflammatory stranding to suggest diverticulitis. No bowel obstruction. Bladder is normal. The uterus is not identified and has likely been surgically resected. No pathologically enlarged abdominal or pelvic lymphadenopathy. Mild thoracolumbar spondylosis. She will be admitted, evaluated and managed for abdominal pain and hypertriglyceridemia Review of Systems Review of Systems: All systems reviewed & are unremarkable except as noted in HPI and below Constitutional: Constitutional: Reports no additional constitutional complaints Eyes: Eyes: Reports no additional eye complaints ENT: Reports system reviewed and no additional complaints, except as documented Cardiovascular: Cardiovascular: Reports no additional cardiovascular complaints Respiratory: Respiratory: Reports no additional respiratory complaints Gastrointestinal: Gastrointestinal: Reports abdominal pain, Denies diarrhea and Reports nausea Genitourinary: Genitourinary: Reports no additional female genitourinary complaints Musculoskeletal: Musculoskeletal: Reports no additional musculoskeletal complaints Integumentary/Breasts: Skin/Breast: Reports system reviewed and no additional complaints, except as docu Neurologic: Reports system reviewed and no additional complaints, except as documented Psychiatric: Psychiatric: Reports no additional psychiatric complaints [facility] Past Medical History Medical History (Updated 06/15/23 @ 19:24 by Hugo Chaves MD) Allergic rhinitis Anxiety Chronic pancreatitis Chylomicronemia syndrome GERD (gastroesophageal reflux disease) Headache Hyperlipemia Hypertriglyceridemia Hypertriglyceridemia 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
--- NOTE | 2023-06-15 17:57 | PC.NURSE ---
Unable to draw labs or assess blood glucose during Plasmapheresis.
[2023-06-15 18:28] LABS: Glucose Point of Care 111 mg/dl (65-105)
[2023-06-15 19:23] LABS: Anion Gap 1 mmol/L (8-16); Blood Urea Nitrogen 5 mg/dL (7-17); Calcium 7.1 mg/dL (8.4-10.2); Carbon Dioxide 24 mmol/L (22-30); Chloride 110 mmol/L (98-107); Estimated CRCL calculation 149 ml/min; Estimated Glomerular Filt Rate > 60; Glucose 119 mg/dL (65-110); Potassium 4.3 mmol/L (3.4-5.0); Sodium 135 mmol/L (137-145)
[2023-06-15 19:43] LABS: Glucose Point of Care 136 mg/dl (65-105)
[2023-06-15 20:18] LABS: Lipase 161 U/L (23-300); Triglycerides 244 mg/dL (<150)
[2023-06-15 20:32] LABS: Glucose Point of Care 137 mg/dl (65-105)
[2023-06-15] MEDS: INSULIN GLARGINE (*BKC) 100 UNITS/ML 20 UNITS SUB-Q (21:34)
[2023-06-16] VITALS (13 sets, daily range): BP systolic 99–130; BP diastolic 55–75; PULSE 61–78; RESP 11–16; TEMP 36.7–36.9; O2SAT 94–98
[2023-06-16 00:12] LABS: Glucose Point of Care 129 mg/dl (65-105)
[2023-06-16] MEDS: HYDROmorphone HCL INJ (*CRX) 1 MG/ML SYR 0.5 MG IV PUSH ×5 (02:56→20:22)
[2023-06-16 04:50] LABS: Glucose Point of Care 111 mg/dl (65-105)
[2023-06-16 05:00] LABS: Basophils Percent Auto 0.3 % (0.2-1.2); Eosinophils Absolute Auto 0.1 K/mm3 (0-0.3); Eosinophils Percent Auto 0.8 % (0-4.4); Hematocrit 35.9 % (37.0-47.0); Hemoglobin 11.6 g/dL (12.0-15.0); Immature Granulocyte Absolute 0.07 K/mm3 (0.00-0.031); Immature Granulocyte Percent A 0.8 % (0-0.5); Lymphocytes Percent Auto 28.6 % (18.3-44.2); Mean Corpuscular HGB Conc 32.3 g/dl (32-36); Mean Corpuscular Hemoglobin 28.7 pg (26-34); Mean Corpuscular Volume 88.9 fl (80-100); Mean Platelet Volume 8.9 fl (7.4-10.4); Monocytes Absolute Auto 0.5 K/mm3 (0.1-0.6); Monocytes Percent Auto 5.4 % (2.6-8.5); Neutrophils Absolute Auto 5.6 K/mm3 (1.3-6.7); Neutrophils Percent Auto 64.1 % (45.5-73.1); Platelet Count Result 200 k/mm3 (150-375); Red Blood Count 4.04 M/mm3 (4.2-5.4); Red Cell Distribution Width 13.5 % (11.5-14.5); White Blood Count 8.7 K/mm3 (4.5-10.0)
[2023-06-16] MEDS: HYDROcodone/acetaminophen (*CRX) 5-325 MG TABLET 1 TAB PO ×3 (05:02→21:14)
[2023-06-16] MEDS: LEVOTHYROXINE SODIUM 100 MCG TABLET 200 MCG PO (05:03)
[2023-06-16 05:20] LABS: Alanine Aminotransferase 11 U/L (6-35); Albumin Level 3.4 g/dL (3.5-5.1); Alkaline Phosphatase 32 U/L (38-126); Anion Gap 2 mmol/L (8-16); Aspartate Amino Transferase 19 U/L (14-36); Bilirubin,Total 0.2 mg/dL (0.2-1.3); Blood Urea Nitrogen 3 mg/dL (7-17); Calcium 7.6 mg/dL (8.4-10.2); Carbon Dioxide 22 mmol/L (22-30); Chloride 111 mmol/L (98-107); Estimated CRCL calculation 149 ml/min; Estimated Glomerular Filt Rate > 60; Glucose 105 mg/dL (65-110); Phosphorus 3.2 mg/dL (2.5-4.5); Potassium 3.9 mmol/L (3.4-5.0); Sodium 135 mmol/L (137-145); Triglycerides 427 mg/dL (<150)
[2023-06-16] MEDS: PANTOPRAZOLE SODIUM IV 40 MG VIAL IV PUSH (08:09)
[2023-06-16] MEDS: FENOFIBRATE NANOCRYSTALLIZED 145 MG TABLET PO (08:10)
[2023-06-16] MEDS: metFORMIN HCL 500 MG TABLET 1000 MG PO ×2 (08:10→17:17)
[2023-06-16] MEDS: ROSUVASTATIN 10 MG TABLET 30 MG PO (08:10)
[2023-06-16] MEDS: ENOXAPARIN 40 MG/0.4 ML SYRINGE SUB-Q (08:10)
[2023-06-16] MEDS: INSULIN ASPART (*BKC) 100 UNITS/ML SUB-Q ×2 (08:11→17:17)
[2023-06-16 08:15] LABS: Glucose Point of Care 113 mg/dl (65-105)
--- NOTE | 2023-06-16 08:55 | WPDINTPN ---
Progress Note: A&P Assessment and Plan (1) Hypertriglyceridemia: Code(s): E78.1 - Pure hyperglyceridemia Status: Acute Assessment and Plan: Triglyceride level of 1856 associated with abdominal pain Patient has been started on insulin infusion and dextrose fluids. Serial BMP will be done to monitor electrolytes Consulted nephrology for plasmapheresis. Patient has port for plasmapheresis. In the past patient has required multiple days of insulin infusion along with significant amount of IV fluids leading to prolonged hospitalization to bring her triglyceride levels down to acceptable level. 06/15 patient underwent session of plasmapheresis and triglycerides have improved and now less than 500. Insulin infusion was discontinued after plasmapheresis Continue fenofibrate and statin (2) Abdominal pain: Qualifiers: Abdominal location: right upper quadrant Qualified Code(s): R10.11 - Right upper quadrant pain Code(s): R10.9 - Unspecified abdominal pain Status: Acute Assessment and Plan: Likely secondary to chronic pancreatitis and hypertriglyceridemia CT scan was negative and lipase is normal Patient is not on pancreatic enzyme replacement as an outpatient Patient exhibits pain out of proportion with her objective vital signs. Continue pain control Continue p.r.n. antiemetics (3) Chronic pancreatitis: Qualifiers: Pancreatitis type: unspecified pancreatitis type Qualified Code(s): K86.1 - Other chronic pancreatitis Code(s): K86.1 - Other chronic pancreatitis Status: Acute Assessment and Plan: See above (4) Insulin dependent diabetes mellitus: Status: Chronic Assessment and Plan: Lantus with meal insulin and sliding scale started 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 Qualified Code(s): E03.8 - Other specified hypothyroidism; E06.3 - Autoimmune thyroiditis Code(s): E03.9 - Hypothyroidism, unspecified Status: Acute Assessment and Plan: Continue levothyroxine (6) GERD (gastroesophageal reflux disease): Qualifiers: Esophagitis presence: esophagitis presence not specified Qualified Code(s): K21.9 - Gastro-esophageal reflux disease without esophagitis Code(s): K21.9 - Gastro-esophageal reflux disease without esophagitis Status: Acute Assessment and Plan: Continue PPI Plan DVT prophylaxis -Lovenox Stress ulcer prophylaxis -PPI Nutrition -diabetic diet Code Status - Full Code Incentive spirometry, up in chair Transfer out ICU today Subjective Date/time seen: 06/16/23 Patient had plasmapheresis done yesterday. She states she feels much better today and states her nausea has completely resolved but she still complains of abdominal pain. She rates it at 8 out 10 when severe but improved with pain medication. Denies any other med complaints. Patient denies fever, chest pain, shortness of breath, cough, nausea vomiting, diarrhea, headache or constipation. All other systems were reviewed and were negative. Sinus rhythm on the monitor Room air Adequate urine output Review of Systems Review of Systems: All systems reviewed & are unremarkable except as noted in HPI and below (HPI) Exam Narrative: General: Pt is alert awake and in NAD Lungs/Chest: Trachea central Clear BS B/L, No crackles or wheezing. Cardiac: RRR. Normal S1 S2. No murmurs Circulation: Pedal pulses are intact and symmetrical. Abdomen: Normal bowel sounds.. Soft. Obese, nD. Mild diffuse tenderness to palpation with no guarding or rigidity Extremities: No clubbing, cyanosis or edema. Warm : Pettit in place Neurologic: Follows commands. Moves all 4 extremities PERRL AO x3 Skin: No Rash Objective Data Vital Signs Vital Signs: Vital Signs - 24 hr 06/15/23 10:00 06/15/23 12:00 06/15/23 12:00 Temperature 36.5 C Pulse Rate 73 71 70 Respirato
[2023-06-16 12:15] LABS: Glucose Point of Care 109 mg/dl (65-105)
--- NOTE | 2023-06-16 12:28 | PC.NURSE ---
This patient, Casandra Jones, was transferred to [facility] via wheelchair without issue on 06/16/23 at 1200. Personal belongings sent with patient. Report given to CLAU Ferrell. Appropriate documentation sent with patient.
[2023-06-16] MEDS: ONDANSETRON INJ 4 MG/2 ML VIAL IV PUSH ×2 (12:41→20:35)
[2023-06-16 16:59] LABS: Glucose Point of Care 118 mg/dl (65-105)
[2023-06-16] MEDS: INSULIN GLARGINE (*BKC) 100 UNITS/ML 20 UNITS SUB-Q (20:23)
[2023-06-16 20:49] LABS: Glucose Point of Care 150 mg/dl (65-105)
[2023-06-16] MEDS: SENNA/DOCUSATE SODIUM TABLET 1 TAB PO (21:12)
[2023-06-16] MEDS: diphenhydrAMINE HCl CAP 25 MG CAPSULE PO (21:12)
[2023-06-17] VITALS (9 sets, daily range): BP systolic 130–133; BP diastolic 71–88; PULSE 64–107; RESP 16–22; TEMP 36.1–36.6; O2SAT 99–100
[2023-06-17] MEDS: HYDROmorphone HCL INJ (*CRX) 1 MG/ML SYR 0.5 MG IV PUSH ×6 (00:05→21:18)
[2023-06-17] MEDS: diphenhydrAMINE HCl CAP 25 MG CAPSULE PO ×4 (04:11→22:59)
[2023-06-17] MEDS: LEVOTHYROXINE SODIUM 100 MCG TABLET 200 MCG PO (05:22)
[2023-06-17 06:27] LABS: Basophils Percent Auto 0.4 % (0.2-1.2); Eosinophils Absolute Auto 0.1 K/mm3 (0-0.3); Eosinophils Percent Auto 0.7 % (0-4.4); Hematocrit 38.7 % (37.0-47.0); Hemoglobin 12.7 g/dL (12.0-15.0); Immature Granulocyte Absolute 0.04 K/mm3 (0.00-0.031); Immature Granulocyte Percent A 0.5 % (0-0.5); Lymphocytes Percent Auto 29.7 % (18.3-44.2); Mean Corpuscular HGB Conc 32.8 g/dl (32-36); Mean Corpuscular Hemoglobin 28.9 pg (26-34); Mean Corpuscular Volume 88.2 fl (80-100); Mean Platelet Volume 8.7 fl (7.4-10.4); Monocytes Absolute Auto 0.5 K/mm3 (0.1-0.6); Monocytes Percent Auto 6.9 % (2.6-8.5); Neutrophils Absolute Auto 4.6 K/mm3 (1.3-6.7); Neutrophils Percent Auto 61.8 % (45.5-73.1); Platelet Count Result 222 k/mm3 (150-375); Red Blood Count 4.39 M/mm3 (4.2-5.4); Red Cell Distribution Width 13.4 % (11.5-14.5); White Blood Count 7.4 K/mm3 (4.5-10.0)
[2023-06-17 07:16] LABS: Alanine Aminotransferase 12 U/L (6-35); Albumin Level 3.8 g/dL (3.5-5.1); Alkaline Phosphatase 39 U/L (38-126); Anion Gap 4 mmol/L (8-16); Aspartate Amino Transferase 23 U/L (14-36); Bilirubin,Total 0.3 mg/dL (0.2-1.3); Blood Urea Nitrogen 2 mg/dL (7-17); Calcium 8.8 mg/dL (8.4-10.2); Carbon Dioxide 28 mmol/L (22-30); Chloride 104 mmol/L (98-107); Estimated CRCL calculation 126 ml/min; Estimated Glomerular Filt Rate > 60; Glucose 103 mg/dL (65-110); Magnesium 1.7 mg/dL (1.6-2.3); Sodium 136 mmol/L (137-145); Triglycerides 391 mg/dL (<150)
[2023-06-17 07:39] LABS: Glucose Point of Care 89 mg/dl (65-105)
[2023-06-17] MEDS: FENOFIBRATE NANOCRYSTALLIZED 145 MG TABLET PO (08:22)
[2023-06-17] MEDS: ROSUVASTATIN 10 MG TABLET 30 MG PO (08:22)
[2023-06-17] MEDS: metFORMIN HCL 500 MG TABLET 1000 MG PO ×2 (08:22→16:54)
[2023-06-17] MEDS: ENOXAPARIN 40 MG/0.4 ML SYRINGE SUB-Q (08:23)
[2023-06-17] MEDS: PANTOPRAZOLE SODIUM IV 40 MG VIAL IV PUSH (08:23)
--- NOTE | 2023-06-17 10:50 | PM.PNNEP ---
Progress Note: A&P Assessment and Plan (1) Hypertriglyceridemia: Code(s): E78.1 - Pure hyperglyceridemia Status: Chronic Assessment and Plan: Triglyceride level was 1856 on admission related to her chylomicronemia syndrome presumably contributing to her abdominal pain and other symptoms started on insulin infusion and Dextrose fluids but with minimal improvement improvement noted s/p plasmapheresis (on 06/15) goal achieved - TG level < 600 TG level 391 by AM labs holding further plasmapheresis at this time follow trend of repeat triglyceride levels continue ongoing medical therapy back on fenofibrate + statin (2) Insulin dependent diabetes mellitus: Status: Chronic Assessment and Plan: follow accu-cheks glycemic control per hospitalists Not much else to add - will continue to follow from a distance. Subjective Date/time seen: 06/17/23 10:50 Interval history: Follow-up for hypertriglyceridemia. Triglyceride levels remains at goal by repeat testing this AM; abdominal pain seems to be doing better as well; no new issues or events overnight or earlier this morning. Exam Narrative: General: WD/WN female in NAD Heart: normal S1 and S2; no rub Lungs: clear to auscultation Abdomen: soft, mild TTP; positive bowel sounds Extremities: no cyanosis or clubbing; trace edema Skin: warm and dry Objective Data Vital Signs Vital Signs: Vital Signs Temp Pulse Resp BP Pulse Ox O2 Del Method 06/17/23 08:00 Room Air 06/17/23 08:00 78 06/17/23 04:00 64 06/17/23 04:15 97.6 F 78 20 130/73 99 06/17/23 00:00 72 06/16/23 20:00 76 06/17/23 00:00 97.9 F 83 22 H 133/71 99 06/16/23 20:00 98 Room Air 06/16/23 16:00 98.3 F 77 12 125/71 98 Intake/Output Intake/Output: Intake & Output 06/14/23 06/15/23 06/16/23 06/17/23 23:59 23:59 23:59 23:59 Intake Total 8197 978 450 Output Total 350 1100 Balance 7847 -122 450 Meds/Results Medications: Active Medications Generic Name Dose Route Start Last Admin Trade Name Freq PRN Reason Stop Dose Admin Hydrocodone Bitart/Acetaminophen 1 tab 06/15/23 09:10 06/17/23 10:51 Hydrocodone/Acetaminophen (*Crx) 5-325 Mg Tablet PO 1 tab Q4H PRN Administration Pain Rated 4-6 Dextrose 12.5 gm 06/16/23 07:39 Dextrose 50% 25 Gm/50 Ml Syringe IV PUSH PRN PRN Hypoglycemia Protocol Diphenhydramine HCl 25 mg 06/16/23 20:40 06/17/23 10:52 Diphenhydramine Hcl Cap 25 Mg Capsule PO 25 mg Q6H PRN Administration Itching Enoxaparin Sodium 40 mg 06/16/23 09:00 06/17/23 08:23 Enoxaparin 40 Mg/0.4 Ml Syringe SUB-Q 40 mg DAILY RAPHAEL Administration Fenofibrate 145 mg 06/15/23 09:00 06/17/23 08:22 Fenofibrate Nanocrystallized 145 Mg Tablet PO 145 mg QAM RAPHAEL Administration Glucagon 1 mg 06/16/23 07:39 Glucagon For Inj 1 Mg Vial IM PRN PRN Hypoglycemia Protocol Glucose 15 gm 06/16/23 07:39 Glucose Oral Gel 15 Gm Of Glucse In 37.5 Gm Tube PO PRN PRN Hypoglycemia Protocol Hydromorphone HCl 0.5 mg 06/15/23 09:10 06/17/23 08:23 Hydromorphone Hcl Inj (*Crx) 1 Mg/Ml Syr IV PUSH 0.5 mg Q3H PRN Administration Pain Rated 7-10 Dextrose 1,000 mls @ 100 mls/hr 06/16/23 07:39 Dextrose 5% 1,000 Ml IVPB PRN PRN Hypoglycemia Protocol Insulin Aspart 3 units 06/16/23 08:00 06/17/23 07:52 Insulin Aspart (*Bkc) 100 Units/Ml SUB-Q Not Given TIDWM [facility] Insulin Aspart 3 - 6 units 06/16/23 08:00 06/17/23 07:52 Insulin Aspart (*Bkc) 100 Units/Ml SUB-Q Not Given TIDWM [facility] Protocol Insulin Aspart 1 - 3 units 06/16/23 21:00 06/16/23 20:27 Insulin Aspart (*Bkc) 100 Units/Ml SUB-Q Not Given HS [facility] Protocol Insulin Glargine 20 units 06/16/23 21:00 06/16/23 20:23 Insulin Glargine (*Bkc) 100 Units/Ml
[2023-06-17] MEDS: HYDROcodone/acetaminophen (*CRX) 5-325 MG TABLET 1 TAB PO ×2 (10:51→16:54)
[2023-06-17 11:36] LABS: Glucose Point of Care 135 mg/dl (65-105)
[2023-06-17] MEDS: INSULIN ASPART (*BKC) 100 UNITS/ML SUB-Q (12:43)
[2023-06-17 16:26] LABS: Glucose Point of Care 111 mg/dl (65-105)
--- NOTE | 2023-06-17 17:01 | PM.IMPN ---
Progress Note: A&P Assessment and Plan (1) Hypertriglyceridemia: Code(s): E78.1 - Pure hyperglyceridemia Status: Acute (2) Abdominal pain: Code(s): R10.9 - Unspecified abdominal pain Status: Acute (3) Chronic pancreatitis: Code(s): K86.1 - Other chronic pancreatitis Status: Acute (4) Acute on chronic pancreatitis: Code(s): K85.90 - Acute pancreatitis without necrosis or infection, unspecified; K86.1 - Other chronic pancreatitis Status: Acute (5) Type 2 diabetes mellitus: Qualifiers: Diabetes mellitus complication status: without complication Diabetes mellitus termite treater helper insulin use: with termite treater helper use Qualified Code(s): E11.9 - Type 2 diabetes mellitus without complications; Z79.4 - nursing home (current) use of insulin Code(s): E11.9 - Type 2 diabetes mellitus without complications Status: Acute Plan (1) Hypertriglyceridemia: ?Code(s): E78.1 - Pure hyperglyceridemia ?Status:?Acute ?Assessment and Plan: Triglyceride level of 1856 associated with abdominal pain Patient has been started on insulin infusion and dextrose fluids.? Serial BMP will be done to monitor electrolytes Consulted nephrology for plasmapheresis.? Patient has port for plasmapheresis.? In the past patient has required multiple days of insulin infusion along with significant amount of IV fluids leading to prolonged hospitalization to bring her triglyceride levels down to acceptable level. 2 patient underwent session of plasmapheresis and triglycerides have improved and now less than 500.? Insulin infusion was discontinued after plasmapheresis Continue fenofibrate and statin 06/17: TG level 391 by AM labs, holding further plasmapheresis at this time per land mobile radio technician. The goal triglyceride is achieved, less than 600 (2) Abdominal pain: ?Qualifiers: ?Abdominal location:?right upper quadrant? Qualified Code(s):?R10.11 - Right upper quadrant pain ?Code(s): R10.9 - Unspecified abdominal pain ?Status:?Acute ?Assessment and Plan: Likely secondary to chronic pancreatitis and hypertriglyceridemia CT scan was negative and lipase is normal Patient is not on pancreatic enzyme replacement as an outpatient Patient exhibits pain out of proportion with her objective vital signs.? Continue pain control Continue p.r.n. antiemetics Pain is tolerable (3) Chronic pancreatitis: ?Qualifiers: ?Pancreatitis type:?unspecified pancreatitis type? 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 Qualified Code(s):?E03.8 - Other specified hypothyroidism; E06.3 - Autoimmune thyroiditis ?Code(s): E03.9 - Hypothyroidism, unspecified ?Status:?Acute ?Assessment and Plan: Continue levothyroxine (6) GERD (gastroesophageal reflux disease): ?Qualifiers: ?Esophagitis presence:?esophagitis presence not specified? Qualified Code(s):?K21.9 - Gastro-esophageal reflux disease without esophagitis ?Code(s): K21.9 - Gastro-esophageal reflux disease without esophagitis ?Status:?Acute ?Assessment and Plan: Continue PPI Subjective Date/time seen: 06/17/23 17:01 Interval history: I saw exam patient today, patient has significant abdomen pain, nausea without vomiting. Afebrile, blood pressure stable, triglycerides 391 today. Exam Narrative: General: Pt is alert awake and in NAD Lungs/Chest: Trachea central Clear BS B/L, No crackles or wheezing. Cardiac: RRR. Normal S1 S2. No murmurs Circulation: Pedal pulses are intact and symmetrical. Abdomen: Normal bowel sounds.. Soft. Obes
[2023-06-17 19:50] LABS: Glucose Point of Care 164 mg/dl (65-105)
[2023-06-17] MEDS: SENNA/DOCUSATE SODIUM TABLET 1 TAB PO (19:59)
[2023-06-17] MEDS: HYDROcodone/acetaminophen (*CRX) 10-325 MG TABLET 1 TAB PO (19:59)
[2023-06-17] MEDS: INSULIN GLARGINE (*BKC) 100 UNITS/ML 20 UNITS SUB-Q (20:00)
[2023-06-18] MEDS: HYDROcodone/acetaminophen (*CRX) 10-325 MG TABLET 1 TAB PO ×5 (00:10→22:28)
[2023-06-18] MEDS: HYDROmorphone HCL INJ (*CRX) 1 MG/ML SYR 0.5 MG IV PUSH ×5 (01:56→19:38)
[2023-06-18] MEDS: ONDANSETRON INJ 4 MG/2 ML VIAL IV PUSH ×3 (01:59→19:42)
[2023-06-18 04:25] VITALS: BP 106/66; PULSE 64; RESP 14; TEMP 36.4; O2SAT 97
[2023-06-18] MEDS: LEVOTHYROXINE SODIUM 100 MCG TABLET 200 MCG PO (05:30)
--- NOTE | 2023-06-18 05:58 | PC.NURSE ---
Patient frequently calling out for pain medications throughout shift. Patient routinely receiving pain medications every 3H (dilaudid) and 4H (Hydrocodone). Patient appears to be groggy during each administration and often asleep upon entering room shortly after calling for pain medications.
[2023-06-18 06:52] LABS: Basophils Percent Auto 0.3 % (0.2-1.2); Eosinophils Percent Auto 0.6 % (0-4.4); Hematocrit 39.6 % (37.0-47.0); Immature Granulocyte Absolute 0.05 K/mm3 (0.00-0.031); Immature Granulocyte Percent A 0.7 % (0-0.5); Lymphocytes Absolute Auto 1.72 K/mm3 (0.9-3.2); Lymphocytes Percent Auto 25.1 % (18.3-44.2); Mean Corpuscular HGB Conc 32.8 g/dl (32-36); Mean Corpuscular Hemoglobin 29.2 pg (26-34); Mean Platelet Volume 9.1 fl (7.4-10.4); Monocytes Absolute Auto 0.5 K/mm3 (0.1-0.6); Monocytes Percent Auto 7.5 % (2.6-8.5); Neutrophils Absolute Auto 4.5 K/mm3 (1.3-6.7); Neutrophils Percent Auto 65.8 % (45.5-73.1); Platelet Count Result 239 k/mm3 (150-375); Red Blood Count 4.45 M/mm3 (4.2-5.4); Red Cell Distribution Width 13.2 % (11.5-14.5); White Blood Count 6.8 K/mm3 (4.5-10.0)
[2023-06-18 07:11] LABS: Alanine Aminotransferase 14 U/L (6-35); Alkaline Phosphatase 45 U/L (38-126); Anion Gap 6 mmol/L (8-16); Aspartate Amino Transferase 23 U/L (14-36); Bilirubin,Total 0.3 mg/dL (0.2-1.3); Blood Urea Nitrogen 3 mg/dL (7-17); Calcium 8.9 mg/dL (8.4-10.2); Carbon Dioxide 31 mmol/L (22-30); Chloride 100 mmol/L (98-107); Estimated CRCL calculation 125 ml/min; Estimated Glomerular Filt Rate > 60; Glucose 119 mg/dL (65-110); Magnesium 1.6 mg/dL (1.6-2.3); Potassium 3.6 mmol/L (3.4-5.0); Sodium 137 mmol/L (137-145); Triglycerides 350 mg/dL (<150)
[2023-06-18 07:59] LABS: Glucose Point of Care 140 mg/dl (65-105)
[2023-06-18] MEDS: INSULIN ASPART (*BKC) 100 UNITS/ML SUB-Q (08:06)
[2023-06-18] MEDS: PANTOPRAZOLE SODIUM IV 40 MG VIAL IV PUSH (08:08)
[2023-06-18] MEDS: ROSUVASTATIN 10 MG TABLET 30 MG PO (08:08)
[2023-06-18] MEDS: SENNA/DOCUSATE SODIUM TABLET 1 TAB PO ×2 (08:08→16:16)
[2023-06-18] MEDS: metFORMIN HCL 500 MG TABLET 1000 MG PO ×2 (08:08→16:16)
[2023-06-18] MEDS: FENOFIBRATE NANOCRYSTALLIZED 145 MG TABLET PO (08:08)
[2023-06-18] MEDS: ENOXAPARIN 40 MG/0.4 ML SYRINGE SUB-Q (08:09)
--- NOTE | 2023-06-18 08:20 | PM.IMPN ---
Progress Note: A&P Assessment and Plan (1) Hypertriglyceridemia: Code(s): E78.1 - Pure hyperglyceridemia Status: Acute (2) Abdominal pain: Code(s): R10.9 - Unspecified abdominal pain Status: Acute (3) Chronic pancreatitis: Code(s): K86.1 - Other chronic pancreatitis Status: Acute (4) Acute on chronic pancreatitis: Code(s): K85.90 - Acute pancreatitis without necrosis or infection, unspecified; K86.1 - Other chronic pancreatitis Status: Acute (5) Type 2 diabetes mellitus: Qualifiers: Diabetes mellitus complication status: without complication Diabetes mellitus watermelon harvesting supervisor insulin use: with watermelon harvesting supervisor use Qualified Code(s): E11.9 - Type 2 diabetes mellitus without complications; Z79.4 - jail (current) use of insulin Code(s): E11.9 - Type 2 diabetes mellitus without complications Status: Acute Plan (1) Hypertriglyceridemia: ?Code(s): E78.1 - Pure hyperglyceridemia ?Status:?Acute ?Assessment and Plan: Triglyceride level of 1856 associated with abdominal pain Patient has been started on insulin infusion and dextrose fluids.? Serial BMP will be done to monitor electrolytes Consulted nephrology for plasmapheresis.? Patient has port for plasmapheresis.? In the past patient has required multiple days of insulin infusion along with significant amount of IV fluids leading to prolonged hospitalization to bring her triglyceride levels down to acceptable level. 2 patient underwent session of plasmapheresis and triglycerides have improved and now less than 500.? Insulin infusion was discontinued after plasmapheresis Continue fenofibrate and statin 06/17: TG level 391 by AM labs, holding further plasmapheresis at this time per strip mine supervisor. The goal triglyceride is achieved, less than 600 (2) Abdominal pain: ?Qualifiers: ?Abdominal location:?right upper quadrant? Qualified Code(s):?R10.11 - Right upper quadrant pain ?Code(s): R10.9 - Unspecified abdominal pain ?Status:?Acute ?Assessment and Plan: Likely secondary to chronic pancreatitis and hypertriglyceridemia CT scan was negative and lipase is normal Patient is not on pancreatic enzyme replacement as an outpatient Patient exhibits pain out of proportion with her objective vital signs.? Continue pain control Continue p.r.n. antiemetics Pain is tolerable (3) Chronic pancreatitis: ?Qualifiers: ?Pancreatitis type:?unspecified pancreatitis type? 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 Qualified Code(s):?E03.8 - Other specified hypothyroidism; E06.3 - Autoimmune thyroiditis ?Code(s): E03.9 - Hypothyroidism, unspecified ?Status:?Acute ?Assessment and Plan: Continue levothyroxine (6) GERD (gastroesophageal reflux disease): ?Qualifiers: ?Esophagitis presence:?esophagitis presence not specified? Qualified Code(s):?K21.9 - Gastro-esophageal reflux disease without esophagitis ?Code(s): K21.9 - Gastro-esophageal reflux disease without esophagitis ?Status:?Acute ?Assessment and Plan: Continue PPI Subjective Date/time seen: 06/18/23 08:20 Interval history: I saw exam patient today, patient has abdomen pain, but pain is better controlled. Appetite is improving. Afebrile, blood pressure stable, triglycerides 3 who who50 today. Exam Narrative: General: Pt is alert awake and in NAD Lungs/Chest: Trachea central Clear BS B/L, No crackles or wheezing. Cardiac: RRR. Normal S1 S2. No murmurs Circulation: Pedal pulses are intact and symmetrical. Abdomen: Normal b
[2023-06-18 11:20] LABS: Glucose Point of Care 96 mg/dl (65-105)
[2023-06-18 14:00] VITALS: BP 123/79; PULSE 80; RESP 18; TEMP 36.6; O2SAT 98
[2023-06-18] MEDS: LORazepam (*CRX) 0.5 MG TABLET PO (15:10)
[2023-06-18 16:35] LABS: Glucose Point of Care 154 mg/dl (65-105)
[2023-06-18] MEDS: diphenhydrAMINE HCl CAP 25 MG CAPSULE PO (18:20)
[2023-06-18 19:48] VITALS: BP 116/74; PULSE 81; RESP 18; TEMP 36.3; O2SAT 96
[2023-06-18 21:04] LABS: Glucose Point of Care 134 mg/dl (65-105)
[2023-06-19] MEDS: HYDROmorphone HCL INJ (*CRX) 1 MG/ML SYR 0.5 MG IV PUSH ×2 (01:30→07:38)
[2023-06-19 04:42] VITALS: BP 113/55; PULSE 68; RESP 16; TEMP 36.4; O2SAT 96
[2023-06-19 06:02] LABS: Basophils Percent Auto 0.5 % (0.2-1.2); Eosinophils Absolute Auto 0.1 K/mm3 (0-0.3); Eosinophils Percent Auto 0.7 % (0-4.4); Hematocrit 39.6 % (37.0-47.0); Hemoglobin 12.7 g/dL (12.0-15.0); Immature Granulocyte Absolute 0.06 K/mm3 (0.00-0.031); Immature Granulocyte Percent A 0.7 % (0-0.5); Lymphocytes Absolute Auto 1.99 K/mm3 (0.9-3.2); Lymphocytes Percent Auto 24.4 % (18.3-44.2); Mean Corpuscular HGB Conc 32.1 g/dl (32-36); Mean Corpuscular Hemoglobin 28.9 pg (26-34); Mean Platelet Volume 9.3 fl (7.4-10.4); Monocytes Absolute Auto 0.5 K/mm3 (0.1-0.6); Monocytes Percent Auto 6.5 % (2.6-8.5); Neutrophils Absolute Auto 5.5 K/mm3 (1.3-6.7); Neutrophils Percent Auto 67.2 % (45.5-73.1); Platelet Count Result 244 k/mm3 (150-375); Red Cell Distribution Width 13.4 % (11.5-14.5); White Blood Count 8.1 K/mm3 (4.5-10.0)
[2023-06-19 06:13] LABS: Alanine Aminotransferase 15 U/L (6-35); Albumin Level 3.9 g/dL (3.5-5.1); Alkaline Phosphatase 51 U/L (38-126); Anion Gap 5 mmol/L (8-16); Aspartate Amino Transferase 21 U/L (14-36); Bilirubin,Total 0.5 mg/dL (0.2-1.3); Blood Urea Nitrogen 6 mg/dL (7-17); Calcium 8.9 mg/dL (8.4-10.2); Carbon Dioxide 28 mmol/L (22-30); Chloride 102 mmol/L (98-107); Estimated CRCL calculation 126 ml/min; Estimated Glomerular Filt Rate > 60; Glucose 136 mg/dL (65-110); Magnesium 1.5 mg/dL (1.6-2.3); Potassium 3.7 mmol/L (3.4-5.0); Sodium 135 mmol/L (137-145); Triglycerides 327 mg/dL (<150)
[2023-06-19] MEDS: LEVOTHYROXINE SODIUM 100 MCG TABLET 200 MCG PO (07:38)
[2023-06-19 07:51] LABS: Glucose Point of Care 116 mg/dl (65-105)
[2023-06-19] MEDS: ROSUVASTATIN 10 MG TABLET 30 MG PO (08:27)
[2023-06-19] MEDS: PANTOPRAZOLE 40 MG TABLET PO (08:27)
[2023-06-19] MEDS: FENOFIBRATE NANOCRYSTALLIZED 145 MG TABLET PO (08:28)
[2023-06-19] MEDS: INSULIN ASPART (*BKC) 100 UNITS/ML SUB-Q ×2 (08:28→11:54)
[2023-06-19] MEDS: SENNA/DOCUSATE SODIUM TABLET 1 TAB PO (08:28)
[2023-06-19] MEDS: metFORMIN HCL 500 MG TABLET 1000 MG PO (08:28)
[2023-06-19] MEDS: ENOXAPARIN 40 MG/0.4 ML SYRINGE SUB-Q (08:29)
--- NOTE | 2023-06-19 09:30 | PM.IMPN ---
Progress Note: A&P Assessment and Plan (1) Hypertriglyceridemia: Code(s): E78.1 - Pure hyperglyceridemia Status: Acute (2) Abdominal pain: Code(s): R10.9 - Unspecified abdominal pain Status: Acute (3) Chronic pancreatitis: Code(s): K86.1 - Other chronic pancreatitis Status: Acute (4) Acute on chronic pancreatitis: Code(s): K85.90 - Acute pancreatitis without necrosis or infection, unspecified; K86.1 - Other chronic pancreatitis Status: Acute (5) Type 2 diabetes mellitus: Qualifiers: Diabetes mellitus complication status: without complication Diabetes mellitus intermodal customer service insulin use: with intermodal customer service use Qualified Code(s): E11.9 - Type 2 diabetes mellitus without complications; Z79.4 - retirement (current) use of insulin Code(s): E11.9 - Type 2 diabetes mellitus without complications Status: Acute Plan (1) Hypertriglyceridemia: ?Code(s): E78.1 - Pure hyperglyceridemia ?Status:?Acute ?Assessment and Plan: Triglyceride level of 1856 associated with abdominal pain Patient has been started on insulin infusion and dextrose fluids.? Serial BMP will be done to monitor electrolytes Consulted nephrology for plasmapheresis.? Patient has port for plasmapheresis.? In the past patient has required multiple days of insulin infusion along with significant amount of IV fluids leading to prolonged hospitalization to bring her triglyceride levels down to acceptable level. 06/15 patient underwent session of plasmapheresis and triglycerides have improved and now less than 500.? Insulin infusion was discontinued after plasmapheresis Continue fenofibrate and statin 06/17: TG level 391 by AM labs, holding further plasmapheresis at this time per store deli manager. The goal triglyceride is achieved, less than 600 Triglycerides 327 today 06/19 (2) Abdominal pain: ?Qualifiers: ?Abdominal location:?right upper quadrant? Qualified Code(s):?R10.11 - Right upper quadrant pain ?Code(s): R10.9 - Unspecified abdominal pain ?Status:?Acute ?Assessment and Plan: Likely secondary to chronic pancreatitis and hypertriglyceridemia CT scan was negative and lipase is normal Patient is not on pancreatic enzyme replacement as an outpatient Patient exhibits pain out of proportion with her objective vital signs.? Continue pain control Continue p.r.n. antiemetics Pain is tolerable, parent tolerate diet well (3) Chronic pancreatitis: ?Qualifiers: ?Pancreatitis type:?unspecified pancreatitis type? 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 Qualified Code(s):?E03.8 - Other specified hypothyroidism; E06.3 - Autoimmune thyroiditis ?Code(s): E03.9 - Hypothyroidism, unspecified ?Status:?Acute ?Assessment and Plan: Continue levothyroxine (6) GERD (gastroesophageal reflux disease): ?Qualifiers: ?Esophagitis presence:?esophagitis presence not specified? Qualified Code(s):?K21.9 - Gastro-esophageal reflux disease without esophagitis ?Code(s): K21.9 - Gastro-esophageal reflux disease without esophagitis ?Status:?Acute ?Assessment and Plan: Continue PPI Subjective Date/time seen: 06/19/23 09:30 Interval history: I saw exam patient today, patient has some abdomen pain, but pain is better controlled. Appetite is improving, patient tolerated regular diet. Afebrile, blood pressure stable, labs reviewed, magnesium 1.5, will replete with magnesium sulfate Exam Narrative: GENERAL: Pleasant, in no acute distress. Well-nourished. - EYES: EOMI. Anicteric. - HENT:
[2023-06-19] MEDS: MAGNESIUM SULF 2 GM/WATER 50ML 2 GM/50 ML BAG IVPB (10:04)
[2023-06-19 11:24] LABS: Glucose Point of Care 157 mg/dl (65-105)
[2023-06-19] MEDS: HYDROcodone/acetaminophen (*CRX) 10-325 MG TABLET 1 TAB PO (11:53)
--- NOTE | 2023-06-19 13:03 | PM.DS ---
DS: Admitting Diagnosis Discharge Date 06/19/23 Admitting Diagnosis (1) Hypertriglyceridemia: ?Code(s): E78.1 - Pure hyperglyceridemia ?Status:?Acute (2) Abdominal pain: ?Code(s): R10.9 - Unspecified abdominal pain ?Status:?Acute (3) Chronic pancreatitis: ?Code(s): K86.1 - Other chronic pancreatitis ?Status:?Acute (4) Acute on chronic pancreatitis: ?Code(s): K85.90 - Acute pancreatitis without necrosis or infection, unspecified; K86.1 - Other chronic pancreatitis ?Status:?Acute (5) Type 2 diabetes mellitus: ?Qualifiers: ?Diabetes mellitus complication status:?without complication??Diabetes mellitus parts counterman insulin use:?with custodial use? Qualified Code(s):?E11.9 - Type 2 diabetes mellitus without complications; Z79.4 - correction (current) use of insulin ?Code(s): E11.9 - Type 2 diabetes mellitus without complications ?Status:?Acute DS: Discharge Diagnosis Discharge Diagnosis (1) Hypertriglyceridemia: Code(s): E78.1 - Pure hyperglyceridemia Status: Acute (2) Abdominal pain: Code(s): R10.9 - Unspecified abdominal pain Status: Acute (3) Chronic pancreatitis: Code(s): K86.1 - Other chronic pancreatitis Status: Acute (4) Acute on chronic pancreatitis: Code(s): K85.90 - Acute pancreatitis without necrosis or infection, unspecified; K86.1 - Other chronic pancreatitis Status: Acute (5) Type 2 diabetes mellitus: Qualifiers: Diabetes mellitus complication status: without complication Diabetes mellitus parts counterman insulin use: with custodial use Qualified Code(s): E11.9 - Type 2 diabetes mellitus without complications; Z79.4 - correction (current) use of insulin Code(s): E11.9 - Type 2 diabetes mellitus without complications Status: Acute DS: Summary Hospital Course Hospital Course: Per H&P, Casandra Jones is a 47 yo F with a mHx significant for obesity, depression, NIDDM, dyslipidemia, Hypothyroidism, Pancretitis. Over the last few days, she developed familiar epigastric abdominal pains; they were sharp, rated 8-10; radiates to her back and RLQ for the last 3 days.? S he had been taking opiate pain medications home with no relief.? Patient got too bad so she came the emergency department for evaluation today.? Patient has had? some nausea vomiting.? No diarrhea.? She denies fevers, diarrhea, skin/joint changes. She does smoke tobacco, about 0.5ppd; denies nicotine and recreational/illicit drug use.' The following med issues have been addressed during hospitalization (1) Hypertriglyceridemia: ?Code(s): E78.1 - Pure hyperglyceridemia ?Status:?Acute ?Assessment and Plan: Triglyceride level of 1856 associated with abdominal pain Patient has been started on insulin infusion and dextrose fluids.? Serial BMP will be done to monitor electrolytes Consulted nephrology for plasmapheresis.? Patient has port for plasmapheresis.? In the past patient has required multiple days of insulin infusion along with significant amount of IV fluids leading to prolonged hospitalization to bring her triglyceride levels down to acceptable level. 06/15 patient underwent session of plasmapheresis and triglycerides have improved and now less than 500.? Insulin infusion was discontinued after plasmapheresis Continue fenofibrate and statin 06/17: TG level 391 by AM labs, holding further plasmapheresis at this time per boiler room operator. The goal triglyceride is achieved, less than 600 Triglycerides 327 today 06/19 (2) Abdominal pain: ?Qualifiers: ?Abdominal location:?right upper quadrant? Qualified Code(s):?R10.11 - Right upper quadrant pain ?Code(s): R10.9 - Unspecified abdominal pain ?Status:?Acute ?Assessment and Plan: Likely secondary to chronic pancreatitis and hypertriglyceridemia CT scan was negative and lipase is normal Patient is not on pancreatic enzyme replacement as an outpatient Pa
== END 2023-06-19 13:55 | disposition home or self-care (01) | DRG 642 ==
LOC: ANHED 06-15 06:56 → ANHICU 06-15 08:20 → ANH3MEDSUR 06-16 11:13
PROVIDERS: Internal Medicine; Admitting Provider Internal Medicine; Emergency Provider Emergency Medicine; PCP Physician Assistant; Visit Provider Internal Medicine
DX: E78.1 Pure hyperglyceridemia (principal); K85.90 Acute pancreatitis without necrosis or infection, unspecified; E87.1 Hypo-osmolality and hyponatremia; K86.1 Other chronic pancreatitis; E78.3 Hyperchylomicronemia; R10.9 Unspecified abdominal pain; F32.9 Major depressive disorder, single episode, unspecified; E83.42 Hypomagnesemia; K21.9 Gastro-esophageal reflux disease without esophagitis; E11.9 Type 2 diabetes mellitus without complications; E78.5 Hyperlipidemia, unspecified; E03.8 Other specified hypothyroidism; E06.3 Autoimmune thyroiditis; E28.2 Polycystic ovarian syndrome; F41.9 Anxiety disorder, unspecified; F17.210 Nicotine dependence, cigarettes, uncomplicated; Z90.49 Acquired absence of other specified parts of digestive tract; Z79.4 Long term (current) use of insulin; E66.9 Obesity, unspecified; Z68.31 Body mass index [BMI] 31.0-31.9, adult
CPT/HCPCS: 36415; 36514; 74177; 80048; 80053; 81003; 81025; 82948; 83690; 83735; 84100; 84478; 85025; 87641; 96361; 96374; 96375; 96376; 99285; A9270; C9113; J0613; J1170; J1644; J1650; J1815; J1885; J2405; J2997; J3475; J3480; J7030; J7040; P9045; Q9967

== ENCOUNTER 2023-06-28 00:49 | Day surgery (SDC) | payer MEDICARE, SELFPAY ==
[2023-06-04 13:23] VITALS: BMI 29.3
--- NOTE | 2023-06-26 15:29 | SUR.PREOP ---
Message left on voicemail to confirm colonoscopy on 06/28/23
[2023-06-28 07:48] VITALS: BP 114/72; PULSE 101; RESP 20; TEMP 36.2; O2SAT 100
[2023-06-28 08:21] LABS: Glucose Point of Care 180 mg/dl (65-105)
--- NOTE | 2023-06-28 08:25 | WPDANESEPPF ---
Anes - Initial Pre Proc Eval Procedure: Operation Date: 06/28/23 09:00 Proposed Procedures p Screening Colonoscopy - Tomas Mullins MD Date/Time: 06/28/23 08:25 Surgeon: Tomas Mullins MD Pre Op Diagnosis: neoplasm screening Patient Data Age: 47 Gender: F Height: 1.65 m Weight: 82 kg Last Vital Signs Temp 36.2 C L 06/28/23 07:48 Pulse 101 H 06/28/23 07:48 Resp 20 06/28/23 07:48 BP 114/72 06/28/23 07:48 Pulse Ox 100 06/28/23 07:48 O2 Del Method Room Air 06/28/23 07:48 Allergies Allergy/AdvReac Type Severity Reaction Status Date / Time adhesive tape Allergy Mild Rash Verified 06/28/23 07:47 [place] pepper [green pepper] Allergy Unknown unknown Verified 06/28/23 07:47 sucralose Allergy Migraine Verified 06/28/23 07:47 [From Splenda (sucralose)] Artificial Sweetners AdvReac Migraine Uncoded 06/28/23 07:47 Home Medications Medication Instructions Recorded Confirmed Type fenofibrate nanocrystallized 145 145 mg PO DAILY #90 tabs 07/24/22 06/24/23 Rx mg tablet ondansetron 4 mg disintegrating 4 mg PO Q8H PRN nausea and 12/11/22 06/24/23 Rx tablet vomiting #30 tabs bupropion HCl 150 mg tablet,12 hr 150 mg PO DAILY #90 tabs 12/19/22 06/24/23 Rx sustained-release citalopram 40 mg tablet 40 mg PO DAILY #90 tabs 12/19/22 06/24/23 Rx insulin aspart U-100 100 unit/mL 1 sliding scale dose subcut TID 12/19/22 06/24/23 Rx (3 mL) subcutaneous pen (Novolog #15 mL FlexPen U-100 Insulin aspart) levothyroxine 200 mcg tablet 200 mcg PO DAILY #90 tabs 12/19/22 06/24/23 Rx metformin 500 mg tablet 1,000 mg PO BID #180 tabs 12/19/22 06/24/23 Rx rosuvastatin 10 mg tablet (Crestor) 30 mg PO DAILY #270 tabs 02/20/23 06/24/23 Rx insulin degludec 200 unit/mL (3 34 unit subcut DAILY 04/06/23 06/24/23 History mL) subcutaneous pen (Tresiba FlexTouch U-200 insulin) cholecalciferol (vitamin D3) 25 25 mcg PO DAILY #30 tabs 04/09/23 06/24/23 Rx mcg (1,000 unit) tablet (Vitamin D3) trazodone 100 mg tablet 200 mg PO HS 04/18/23 06/24/23 History pantoprazole 40 mg tablet,delayed 40 mg PO DAILY 06/04/23 06/24/23 History release metoclopramide HCl 10 mg tablet 10 mg PO Q6H PRN nausea and 06/19/23 06/24/23 Rx (Reglan) vomiting #30 tabs oxycodone-acetaminophen 5 mg-325 1 tablet PO Q6H PRN pain #14 tabs 06/19/23 06/24/23 Rx mg tablet (Endocet) [id number] See Rx Instructions .Route 06/24/23 06/24/23 Rx 36,000-114,000-180,000 unit .COMPLEX #240 caps capsule,delay rel (Creon) lorazepam 1 mg tablet 1 mg PO QHS PRN sleep #90 tabs 06/24/23 06/24/23 Rx Laboratory Tests 06/28/23 07:56 POC Capillary Glucose 180 H mg/dl (65-105) Patient hx anesthesia problems: none Family hx anesthesia problems: none Results Review: All pre-operative results and documents have been reviewed as part of the pre-operative evaluation. 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
[2023-06-28] MEDS: LACTATED RINGERS 1,000 ML 150 ML IV CONT (08:29)
--- NOTE | 2023-06-28 08:34 | PM.HPGS ---
History of Present Illness History of Present Illness Consent: Risks, benefits, and alternatives have been discussed and questions answered. Patient agrees to proceed with procedure. Chief complaint: neoplasm screening Narrative: Casandra Jones is a 47 year old female here for screening colonoscopy, last one in 2004 Review of Systems Constitutional: Constitutional: Denies headache(s) and Denies weakness Eyes: Eyes: Denies blurry vision ENT: Reports Normal hearing present, Denies headache(s) and Denies neck pain Cardiovascular: Cardiovascular: Denies chest pain and Denies dyspnea Respiratory: Respiratory: Denies dyspnea Gastrointestinal: Gastrointestinal: Reports no additional gastrointestinal complaints Genitourinary: Genitourinary: Denies dysuria Musculoskeletal: Musculoskeletal: Denies neck pain Integumentary/Breasts: Skin/Breast: Denies dry skin Neurologic: Reports Normal hearing present, Denies headache(s) and Denies weakness Psychiatric: Psychiatric: Denies anxiety Endocrine: Endocrine: Denies change in body appearance Hematologic/Lymphatic: Hematologic/Lymphatic: Denies easy bleeding Allergic/Immunologic: Allergic/Immunologic: Denies urticaria PMFSH Past Medical History Medical History (Updated 06/28/23 @ 08:35 by Tomas Mullins MD) Allergic rhinitis Anxiety Chronic pancreatitis Chylomicronemia syndrome Colon cancer screening GERD (gastroesophageal reflux disease) Headache Hyperlipemia Hypertriglyceridemia Hypertriglyceridemia 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buse Hypertension Mother Hypothyroid Cerebrovascular accident Grandparent Skin cancer Colon cancer Heart disease Hypothyroid Cerebrovascular accident Sibling Hypothyroid Kidney disorder Hypertension Autoimmune disorder Social History Social History Social History: She smokes a pack a day for the past 30 years. No alcohol or drug use. She has 2 dogs and a cat at home. Surrogate medical decision maker: José Miguel Jones, spouse. Code status: Full Smoking packs per day: 0.5 Smoking cigarettes per day: 10.0 Years smoked: 30 Smoking pack-years: 15.00 Smoking status: Current every day smoker Tobacco type: cigarettes Second hand tobacco smoke exposure: Yes Alcohol intake: never Drinks per week: 0 Substance use: never Substance use type: does not use Do You Feel Safe in your Home?: Yes Lack of Transportation: No Lack of Food: Never True Current Housing: I Have Housing Concerned About Future Housing: No Difficulty Paying Gas/Electric Bills: No Difficulty Paying for Meds: No Currently Unemployed: No Education: Associate Degree Difficulty w/ Childcare or Family Care: No Living arrangements: with family Spiritual care concerns: No Meds Home Medications and Allergies Home Medications Medication Instructions Recorded Confirmed Type fenofibrate nanocrystallized 145 145 mg PO DAILY #90 tabs 07/24/22 06/24/23 Rx mg tablet ondansetron 4 mg disintegrating 4 mg PO Q8H PRN nausea and 12/11/22 06/24/23 Rx tablet vomiting #30 tabs bupropion HCl 150 mg tablet,12 hr 150 mg PO DAILY #90 tabs 12/19/22 06/24/23 Rx sustained-release citalo
[2023-06-28 08:51] VITALS: BP 100/75; PULSE 85; RESP 20; O2SAT 99
[2023-06-28 09:01] VITALS: BP 93/61; PULSE 78; RESP 17; O2SAT 99
[2023-06-28 09:11] VITALS: BP 104/71; PULSE 79; RESP 15; O2SAT 100
--- NOTE | 2023-06-28 09:16 | SUR.PHASEII ---
BG 196 per patient dexcom meter in post-op.
== END 2023-06-28 09:19 | disposition home or self-care (01) ==
PROVIDERS: PCP Physician Assistant; Visit Provider Internal Medicine Gastroenterology
PROC: 0DJD8ZZ Inspection of Lower Intestinal Tract, Via Natural or Artificial Opening Endoscopic (ICD-10-PCS; CPT 45378; principal; 2023-06-28 09:00)
DX: Z12.11 Encounter for screening for malignant neoplasm of colon (principal); K57.30 Diverticulosis of large intestine without perforation or abscess without bleeding; J30.9 Allergic rhinitis, unspecified; F41.9 Anxiety disorder, unspecified; K86.1 Other chronic pancreatitis; K21.9 Gastro-esophageal reflux disease without esophagitis; E78.5 Hyperlipidemia, unspecified; E78.1 Pure hyperglyceridemia; E06.3 Autoimmune thyroiditis; E11.9 Type 2 diabetes mellitus without complications; E28.2 Polycystic ovarian syndrome; F17.210 Nicotine dependence, cigarettes, uncomplicated; E66.9 Obesity, unspecified; Z68.30 Body mass index [BMI] 30.0-30.9, adult; Z79.4 Long term (current) use of insulin; Z79.84 Long term (current) use of oral hypoglycemic drugs; Z79.85 Long-term (current) use of injectable non-insulin antidiabetic drugs; Z79.891 Long term (current) use of opiate analgesic; Z98.890 Other specified postprocedural states; Z80.0 Family history of malignant neoplasm of digestive organs; Z84.0 Family history of diseases of the skin and subcutaneous tissue; Z82.49 Family history of ischemic heart disease and other diseases of the circulatory system
CPT/HCPCS: G0105; 82948; J2704; J7120

== ENCOUNTER 2023-07-21 16:54 | Inpatient (IN) | payer MEDICARE, SELFPAY ==
[2023-07-21] VITALS (7 sets, daily range): BP systolic 91–122; BP diastolic 52–97; PULSE 74–86; RESP 15–22; TEMP 36.3–36.7; O2SAT 95–100; BMI 29.7
--- NOTE | ~2023-07-21 | CT_ITS ---
EXAMINATION: CT abdomen pelvis w con DATE: 07/21/2023 18:43 INDICATION: abd pain, diarrhea, melena TECHNIQUE: Computed tomography (CT) of the abdomen and pelvis was performed with 100 mL Omnipaque-350 intravenous contrast. Automated exposure control and iterative reconstruction technique were employe d. The dose-length product was 805.08 mGy-cm. COMPARISON: 06/15/2023, 04/18/2023, 04/06/2023. FINDINGS: Lower thorax: Unremarkable Liver: Normal. Biliary/Gallbladder: Gallbladder is partially contracted, no stones or inflammatory change. No bile d uct dilation. Pancreas: No mass or duct dilation. Spleen: Stable small pericapsular fluid collection at the tip of the spleen, of doubtful clinical sig nificance. Adrenals:No mass. Kidneys: No suspicious mass, obstructing stone, or hydronephrosis. Punctate nonobstructing left midpo le calcification. GI tract: Moderate distal esophageal and antral wall edema. No small or large bowel dilation. Appendi x not visualized. Diverticulosis without diverticulitis. Mesentery/Peritoneum: No ascites, mass, or free air. Retroperitoneum: No mass. Atherosclerotic abdominal aortic and/or arterial calcifications. Pelvis: Distended urinary bladder. Absent uterus. Normal ovaries. Soft Tissues: Soft tissues and body wall unremarkable. Bones: No acute osseous finding. IMPRESSION: Moderate esophagitis and antral gastritis. Distended urinary bladder, correlate for findings of urinary retention. Otherwise, no acute abdominopelvic process detected. Reviewed, dictated and finalized at location K.
--- NOTE | ~2023-07-21 | XR_ITS ---
EXAMINATION: XR chest 2V Exam Date/Time: 07/21/2023 17:27 CDT HISTORY: SOB Comparison: 04/17/2023. RESULT: Lines, tubes, and devices: Bilateral implanted ports, unchanged position. Lungs and pleura: Clear. Cardiomediastinal silhouette: Stable. Other: No acute osseous or upper abdominal finding. IMPRESSION: No acute cardiopulmonary process. Reviewed, dictated and finalized at location K.
--- NOTE | ~2023-07-21 | CT_ITS ---
EXAMINATION: CTA chest PE protocol DATE: 07/25/2023 14:54 CDT INDICATION: Chest pain TECHNIQUE: Computed tomographic angiography (CTA) of the chest was performed with 100 mL Omnipaque-35 0 intravenous contrast. The dose-length product was 519.99 mGy-cm. Maximum intensity projection 3D-re constructions of the aorta and other arteries were constructed by the technologist on a separate work station. Automated exposure control and iterative reconstruction technique were employed. COMPARISON: CT dated 07/29/2016 FINDINGS: Study is technically adequate without evidence for pulmonary embolism. Heart size normal. N o significant pleural or pericardial effusion. Upper abdomen is unremarkable. There is a 1.4 cm irreg ular mass in the left breast, axial image 107. No thoracic lymphadenopathy. There is dependent atelec tasis. No endobronchial lesions. No suspicious pulmonary nodules or masses. Portacatheter is are iden tified bilaterally. IMPRESSION: 1. No acute cardiopulmonary disease. No evidence for pulmonary embolism. Reviewed, dictated and finalized at location L.
--- NOTE | 2023-07-21 16:57 | ECG_ITS ---
Measurements Intervals [place] Rate: 82 P: 52 TX: 157 QRS: 46 QRSD: 83 T: -9 QT: 391 QTc: 457 Interpretive Statements SINUS RHYTHM MINIMAL Q WAVES- INFERIOR LEADS NONSPECIFIC ST & T-WAVE ABNORMALITY- ANTEROLA/INF LEADS BORDERLINE ECG COMPARED TO ECG 05/06/2023 03:15:39 NO SIGNIFICANT CHANGES Electronically Signed On 07-21-2023 21:03:55 CDT by Baron Bowers D.O.
--- NOTE | 2023-07-21 17:21 | ED.GIBLEED ---
HPI - GI Bleed General Chief complaint: GI Bleed <Alize Lind PA-C - Last Filed: 07/21/23 21:51> Stated complaint: black, tarry stools <Alize Lind PA-C - Last Filed: 07/21/23 21:51> Time Seen by Provider: 07/21/23 17:10 <Alize Lind PA-C - Last Filed: 07/21/23 21:51> Source: patient <DARI Vines Last Filed: 07/21/23 21:51> Mode of arrival: ambulatory <DARI Vines Last Filed: 07/21/23 21:51> Limitations: no limitations <DARI Vines Last Filed: 07/21/23 21:51> History of Present Illness HPI Narrative: This is a 47 year old female that presents to the ER for dark stool. Reports she recently had an IA with 3 stents placed while on a trip to [place]. Reports she had a prolonged hospitalization and was discharged early last week. All week she has had loose stools. Today she noted her stool looked dark which concerned her and prompted her to be seen. They drove back today and she also started to develop left sided chest pain/pressure. This has been somewhat ongoing since her hospitalization. Also reports shortness of breath and dizziness. Reports some abdominal discomfort and vomiting. Denies fevers or lower extremity edema. <Alize Lind PA-C - Last Filed: 07/21/23 21:51> Related Data Home medications: Home Medications Medication Instructions Recorded Confirmed insulin degludec 200 unit/mL (3 34 unit subcut DAILY 04/06/23 07/21/23 mL) subcutaneous pen (Tresiba FlexTouch U-200 insulin) trazodone 100 mg tablet 200 mg PO HS 04/18/23 07/21/23 pantoprazole 40 mg tablet,delayed 40 mg PO BID 06/04/23 07/21/23 release atorvastatin 40 mg tablet 80 mg PO DAILY 07/21/23 07/21/23 hydrocodone 5 mg-acetaminophen 325 1 tablet PO Q12H PRN pain 7-10 07/21/23 07/21/23 mg tablet levothyroxine 200 mcg tablet 225 mcg PO DAILY 07/21/23 07/21/23 losartan 25 mg tablet 25 mg PO DAILY 07/21/23 07/21/23 metoprolol succinate 25 mg 25 mg PO DAILY 07/21/23 07/21/23 tablet,extended release 24 hr ticagrelor 90 mg tablet (Brilinta) 90 mg PO BID 07/21/23 07/21/23 vlpime-zyatjpby-wsialon 2 cap PO TIDWMEAL 07/22/23 07/22/23 36,000-114,000-180,000 unit capsule,delay rel (Creon) <Alize Lind PA-C - Last Filed: 07/21/23 21:51> Allergies/Adverse reactions: Allergies Allergy/AdvReac Type Severity Reaction Status Date / Time adhesive tape Allergy Mild Rash Verified 07/21/23 17:00 [place] pepper [green pepper] Allergy Unknown unknown Verified 07/21/23 17:00 sucralose Allergy Migraine Verified 07/21/23 17:00 [From Splenda (sucralose)] Artificial Sweetners AdvReac Migraine Uncoded 06/28/23 07:47 <Alize Lind PA-C - Last Filed: 07/21/23 21:51> Review of Systems Review of Systems: CONSTITUTIONAL: Denies fever CARDIOVASCULAR: Reports chest pain. Denies edema. RESPIRATORY: Reports dyspnea. GASTROINTESTINAL: Reports abdominal pain, nausea, vomiting, and diarrhea. 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
[2023-07-21 17:33] LABS: Basophils Percent Auto 0.4 % (0.2-1.2); Eosinophils Absolute Auto 0.1 K/mm3 (0-0.3); Hematocrit 41.1 % (37.0-47.0); Hemoglobin 13.3 g/dL (12.0-15.0); Immature Granulocyte Absolute 0.02 K/mm3 (0.00-0.031); Immature Granulocyte Percent A 0.2 % (0-0.5); Lymphocytes Absolute Auto 2.36 K/mm3 (0.9-3.2); Lymphocytes Percent Auto 29.3 % (18.3-44.2); Mean Corpuscular HGB Conc 32.4 g/dl (32-36); Mean Corpuscular Hemoglobin 28.5 pg (26-34); Mean Corpuscular Volume 88.2 fl (80-100); Mean Platelet Volume 9.6 fl (7.4-10.4); Monocytes Absolute Auto 0.6 K/mm3 (0.1-0.6); Monocytes Percent Auto 7.4 % (2.6-8.5); Neutrophils Percent Auto 61.7 % (45.5-73.1); Platelet Count Result 236 k/mm3 (150-375); Red Blood Count 4.66 M/mm3 (4.2-5.4); Red Cell Distribution Width 13.6 % (11.5-14.5); White Blood Count 8.1 K/mm3 (4.5-10.0)
[2023-07-21] MEDS: ONDANSETRON INJ 4 MG/2 ML VIAL IV PUSH (17:42)
[2023-07-21 17:44] LABS: Partial Thromboplastin Time 34.3 Seconds (22.3-36.8); Prothrombin Time 13.1 Seconds (11.1-14.7)
[2023-07-21 17:46] LABS: Alanine Aminotransferase 18 U/L (6-35); Albumin Level 4.5 g/dL (3.5-5.1); Alkaline Phosphatase 94 U/L (38-126); Anion Gap 12 mmol/L (8-16); Aspartate Amino Transferase 18 U/L (14-36); Bilirubin,Total 0.3 mg/dL (0.2-1.3); Blood Urea Nitrogen 14 mg/dL (7-17); Calcium 9.6 mg/dL (8.4-10.2); Carbon Dioxide 24 mmol/L (22-30); Chloride 100 mmol/L (98-107); Estimated Glomerular Filt Rate > 60; Glucose 351 mg/dL (65-110); Lipase 112 U/L (23-300); Potassium 3.6 mmol/L (3.4-5.0); Sodium 136 mmol/L (137-145)
[2023-07-21 17:52] LABS: D Dimer < 0.27 ug/mL (<0.48)
[2023-07-21 17:57] LABS: Troponin I < 0.012 ng/mL (0.000-0.034)
[2023-07-21] MEDS: PANTOPRAZOLE SODIUM IV 40 MG VIAL 80 MG IV PUSH (19:40)
--- NOTE | 2023-07-21 20:34 | PM.IMHP ---
H&P: HPI History of Present Illness Date/Time: 07/21/23 20:34 Chief Complaint: melena Narrative: This is a 47-year-old female with past medical history significant for hypertriglyceridemia, chronic pancreatitis, coronary artery disease, MS, status post PTCI. Patient presents to the emergency room after having 1 week diarrhea, nausea, vomiting diarrhea stopped but in the morning she had a melena, denies any bright red blood per rectum, no coffee-ground emesis, no hematemesis. patient was started on Brilinta. Preliminary workup here patient was positive for Hemoccult. EXAMINATION:? XR chest 2V Exam Date/Time:? 07/21/2023 17:27 CDT HISTORY: SOB ? Comparison:? 04/17/2023. RESULT: Lines, tubes, and devices:? Bilateral implanted ports, unchanged position. Lungs and pleura:? Clear. Cardiomediastinal silhouette:? Stable. Other:? No acute osseous or upper abdominal finding. ? IMPRESSION: No acute cardiopulmonary process. EXAMINATION: CT abdomen pelvis w con DATE: 07/21/2023 18:43 INDICATION: abd pain, diarrhea, melena TECHNIQUE: Computed tomography (CT) of the abdomen and pelvis was performed with 100 mL Omnipaque-350 intravenous contrast. Automated exposure control and iterative reconstruction technique were employed. The dose-length product was 805.08 mGy-cm. COMPARISON: 06/15/2023, 04/18/2023, 04/06/2023. FINDINGS: Lower thorax: Unremarkable Liver: Normal.? Biliary/Gallbladder: Gallbladder is partially contracted, no stones or inflammatory change. No bile duct dilation. Pancreas: No mass or duct dilation. Spleen: Stable small pericapsular fluid collection at the tip of the spleen, of doubtful clinical significance. Adrenals:No mass. Kidneys: No suspicious mass, obstructing stone, or hydronephrosis. Punctate nonobstructing left midpole calcification. GI tract: Moderate distal esophageal and antral wall edema. No small or large bowel dilation. Appendix not visualized. Diverticulosis without diverticulitis. Mesentery/Peritoneum: No ascites, mass, or free air. Retroperitoneum: No mass. Atherosclerotic abdominal aortic and/or arterial calcifications. Pelvis: Distended urinary bladder. Absent uterus. Normal ovaries. Soft Tissues: Soft tissues and body wall unremarkable. Bones:? No acute osseous finding. IMPRESSION: Moderate esophagitis and antral gastritis. Distended urinary bladder, correlate for findings of urinary retention. Otherwise, no acute abdominopelvic process detected. Review of Systems Review of Systems: melena, n/v, abdominal pain, watery diarrhea. Constitutional: Constitutional: Denies chills, Denies fever(s) and Denies night sweats Eyes: Eyes: Denies change in vision ENT: Denies dysphagia and Denies odynophagia Cardiovascular: Cardiovascular: Reports chest pain, Denies leg edema, Denies radiating jaw, neck or arm pain and Denies palpitations Respiratory: Respiratory: Denies cough and Denies dyspnea Gastrointestinal: Gastrointestinal: Reports abdominal pain, Reports melena, Reports diarrhea, Reports nausea and Reports vomiting Genitourinary: Genitourinary: Denies dysuria Musculoskeletal: Musculoskeletal: Denies arthralgias Integumentary/Breasts: Skin/Breast: Denies rash Neurologic: Denies focal weakness and Denies Sensory deficit (Neuro) Psychiatric: Psychiatric: Reports no additional psychiatric complaints and Reports as per HPI Endocrine: Endocrine: Denies cold intolerance, Denies flushing, Denies heat intolerance, Denies polyphagia, Denies polydipsia, Denies polyuria and Denies palpitations Hematologic/Lymphatic: Hematologic/Lymphatic: Reports no additional hematologic/lymphatic complaints and Reports as per HPI Allergic/Immunologic: Allergic/Immunologic: Reports no additional allergic/immunologic complaints and Reports as per HPI [facility] Past Medical History Medical History (Updated 07/21/23 @ 22:03 by Robert Michaels MD) Allergic rhinitis Anxiety Chronic pancreatitis
[2023-07-21 20:41] LABS: Troponin I < 0.012 ng/mL (0.000-0.034)
[2023-07-21 20:56] LABS: Triglycerides 717 mg/dL (<150)
[2023-07-21] MEDS: SODIUM CHLORIDE 0.9% IV 500 ML 999 ML IV CONT (21:24)
[2023-07-21] MEDS: MORPHINE SULFATE (*CRX) 4 MG/ML INJ IV PUSH (21:24)
--- NOTE | 2023-07-21 22:26 | ADMGEN ---
This patient, Casandra Jones, was admitted to IMU Room 202-01. Patient/family oriented to hospital policies and general routines including ID bracelet, bed and alarms, visiting hours, pain management, procedures, bathroom and other care routines, personal items, smoking policy, room service/diet, and visiting hours. Information on how to activate the Rapid Response Team has been discussed. Patient/Family are encouraged to report perceived risks to care and to ask questions if they do not understand what they are told or what they should do.
[2023-07-21 22:46] LABS: Glucose Point of Care 237 mg/dl (65-105)
[2023-07-22] VITALS (21 sets, daily range): BP systolic 85–100; BP diastolic 47–64; PULSE 62–93; RESP 16–18; TEMP 36.2–36.9; O2SAT 95–100
[2023-07-22 00:08] LABS: Troponin I < 0.012 ng/mL (0.000-0.034)
[2023-07-22] MEDS: LORazepam (*CRX) 1 MG TABLET PO ×2 (00:30→20:59)
[2023-07-22] MEDS: traZODone HCL 50 MG TABLET 200 MG PO ×2 (00:30→20:59)
[2023-07-22] MEDS: HYDROcodone/acetaminophen (*CRX) 5-325 MG TABLET 1 TAB PO ×2 (00:34→21:06)
[2023-07-22 00:39] LABS: Hematocrit 38.8 % (37.0-47.0); Hemoglobin 12.5 g/dL (12.0-15.0)
[2023-07-22 05:10] LABS: Hemoglobin 12.4 g/dL (12.0-15.0)
[2023-07-22] MEDS: LEVOTHYROXINE SODIUM 75 MCG TABLET 225 MCG PO (05:37)
[2023-07-22 08:04] LABS: Hematocrit 37.6 % (37.0-47.0); Hemoglobin 12.4 g/dL (12.0-15.0)
[2023-07-22 08:07] LABS: Glucose Point of Care 212 mg/dl (65-105)
[2023-07-22] MEDS: LOSARTAN POTASSIUM 25 MG TABLET PO (08:19)
[2023-07-22] MEDS: buPROPion HCL SR (12 HR) 150 MG TAB PO (08:19)
[2023-07-22] MEDS: METOPROLOL SUCCINATE EXT REL 25 MG TABCR PO (08:19)
[2023-07-22] MEDS: CITALOPRAM HYDROBROMIDE 20 MG TABLET 40 MG PO (08:19)
[2023-07-22] MEDS: TICAGRELOR 90 MG TABLET PO ×2 (08:19→20:59)
[2023-07-22] MEDS: ATORVASTATIN 40 MG TABLET 80 MG PO (08:20)
[2023-07-22] MEDS: FENOFIBRATE NANOCRYSTALLIZED 145 MG TABLET PO (08:20)
[2023-07-22] MEDS: INSULIN ASPART (*BKC) 100 UNITS/ML SUB-Q ×2 (08:26→16:58)
[2023-07-22] MEDS: INSULIN GLARGINE (*BKC) 100 UNITS/ML 34 UNITS SUB-Q (08:32)
[2023-07-22] MEDS: PANTOPRAZOLE SODIUM IV 40 MG VIAL IV PUSH ×2 (09:05→20:59)
--- NOTE | 2023-07-22 09:05 | PC.NURSE ---
Clarification received from ANNA Carlson on which Protonix pt is to receive. Orders placed by RN
--- NOTE | 2023-07-22 09:22 | PM.CNCAR ---
Assessment and Plan Assessment and plan (1) CAD (coronary artery disease): Code(s): I25.10 - Atherosclerotic heart disease of [place] coronary artery without angina pectoris Status: Acute Plan This is a somewhat complicated 47-year-old lady recently found to have coronary disease and undergoing a multivessel stent procedure down in [facility]. Following that she has been placed on dual anti-platelet therapy with aspirin and Brilinta. She also has the diagnosis of significant hyper triglyceride all lead E me a and diabetes. She at times requires plasmapheresis to treat her triglycerides. She enters the hospital now with dark stools and the clinical diagnosis of melena. Despite this her hemoglobin level is not significantly declined in comparison to recent, previous records here at this hospital. I will go ahead and place her on the low-dose aspirin that is missing from her medication list. In addition to this we will await the results of her endoscopy. We might consider transitioning her to clopidogrel since it sounds like her presentation in [place] was not a true STEMI and if she is having difficulty with hemorrhage clopidogrel might be a better choice. She was asking questions about referral to cardiac rehab after discharge from here I told her that would be appropriate and we would be happy to arrange for that. Ceasar Ng MD [facility] History of Present Illness History of Present Illness Consult date/time: 07/22/23 09:22 Reason For Visit: Melena, chest pain Narrative: This is a very pleasant but unfortunately complex 47-year-old lady I am seeing at the request of the hospitalist because of symptoms of melanotic stool and coronary artery disease with recent PCI done elsewhere. The patient is not known to me prior to this encounter but has been hospitalized here a number of times at [place]. Her medical history is primarily remarkable for severe hypertriglyceridemia to the point where she requires episodes of plasmapheresis for a treatment of this has been treated at [facility] in the past and also sometimes here at the direction of the and nephrology consultants. She also has diabetes mellitus and at least several episodes of significant pancreatitis in the past because of her hypertriglyceridemia. She recently was found to have coronary artery disease when she was visiting family member who was ill done in the [facility] area and was hospitalized. She reports undergoing catheterization and a multivessel stent procedure in the at the hospital in [place]. I do not have the details of this procedure the patient states that several high-grade lesions were stented and she had some other vessels that had modest non flow-limiting coronary disease. Following that intervention she was placed on aspirin and Brilinta. 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 The intervention was done on July 11. She takes low-dose aspirin as well as Brilinta following this PCI. She did take her aspirin yesterday it is noteworthy that aspirin has not been ordered in the hospital it is erroneously absent from her medication list. She describes no knowledge of her history of peripheral vascular disease. Her electrocardiogram shows sinus rhythm with a nonspecific T-wave abnormality is not significantly changed in comparison to a previous tracings that are in the chart. She has normal troponin levels. Review of Systems Constitutional: Constitutional: Reports no additional constitutional complaints Eyes: Eyes: Reports no additional eye complaints ENT: Reports system reviewed and no additional complaints, except as documented Cardiovascular: Cardiovascular: Reports as per HPI Respiratory: Respiratory: Reports no additional respiratory complaints Gastrointestinal: Gastrointestinal: Reports abdominal pain and Reports melena Musculoske
[2023-07-22] MEDS: ASPIRIN 81 MG ENTERIC TABLET PO (10:38)
[2023-07-22] MEDS: ONDANSETRON INJ 4 MG/2 ML VIAL IV PUSH ×2 (10:38→17:03)
[2023-07-22] MEDS: MORPHINE SULFATE (*CRX) 2 MG/ML INJ 4 MG IV PUSH (10:40)
--- NOTE | 2023-07-22 11:03 | PC.NURSE ---
To GI Lab per [wheelchair ]. Report given to [CLAU Hernandez ].
[2023-07-22 11:22] LABS: Glucose Point of Care 123 mg/dl (65-105)
--- NOTE | 2023-07-22 11:36 | WPDANESEPPF ---
Anes - Initial Pre Proc Eval Procedure: Operation Date: 07/22/23 16:00 Proposed Procedures p Esophagogastroduodenoscopy - Tomas Mullins MD Date/Time: 07/22/23 11:36 Surgeon: Robert Michaels MD Pre Op Diagnosis: Melena, chest pain Patient Data Age: 47 Gender: F Height: 1.65 m Weight: 81 kg Last Vital Signs Temp 97.8 F 07/22/23 11:17 Pulse 79 07/22/23 11:17 Resp 18 07/22/23 11:17 BP 93/48 L 07/22/23 11:17 Pulse Ox 98 07/22/23 11:17 O2 Del Method Room Air 07/22/23 11:17 Allergies Allergy/AdvReac Type Severity Reaction Status Date / Time adhesive tape Allergy Mild Rash Verified 07/21/23 17:00 [place] pepper [green pepper] Allergy Unknown unknown Verified 07/21/23 17:00 sucralose Allergy Migraine Verified 07/21/23 17:00 [From Splenda (sucralose)] Artificial Sweetners AdvReac Migraine Uncoded 06/28/23 07:47 Home Medications Medication Instructions Recorded Confirmed Type fenofibrate nanocrystallized 145 145 mg PO DAILY #90 tabs 07/24/22 07/21/23 Rx mg tablet ondansetron 4 mg disintegrating 4 mg PO Q8H PRN nausea and 12/11/22 07/21/23 Rx tablet vomiting #30 tabs bupropion HCl 150 mg tablet,12 hr 150 mg PO DAILY #90 tabs 12/19/22 07/21/23 Rx sustained-release citalopram 40 mg tablet 40 mg PO DAILY #90 tabs 12/19/22 07/21/23 Rx insulin aspart U-100 100 unit/mL 1 sliding scale dose subcut TID 12/19/22 07/21/23 Rx (3 mL) subcutaneous pen (Novolog #15 mL FlexPen U-100 Insulin aspart) metformin 500 mg tablet 1,000 mg PO BID #180 tabs 12/19/22 07/21/23 Rx insulin degludec 200 unit/mL (3 34 unit subcut DAILY 04/06/23 07/21/23 History mL) subcutaneous pen (Tresiba FlexTouch U-200 insulin) cholecalciferol (vitamin D3) 25 25 mcg PO DAILY #30 tabs 04/09/23 07/21/23 Rx mcg (1,000 unit) tablet (Vitamin D3) trazodone 100 mg tablet 200 mg PO HS 04/18/23 07/21/23 History pantoprazole 40 mg tablet,delayed 40 mg PO BID 06/04/23 07/21/23 History release metoclopramide HCl 10 mg tablet 10 mg PO Q6H PRN nausea and 06/19/23 07/21/23 Rx (Reglan) vomiting #30 tabs lorazepam 1 mg tablet 1 mg PO QHS PRN sleep #90 tabs 06/24/23 07/21/23 Rx atorvastatin 40 mg tablet 80 mg PO DAILY 07/21/23 07/21/23 History hydrocodone 5 mg-acetaminophen 325 1 tablet PO Q12H PRN pain 7-10 07/21/23 07/21/23 History mg tablet levothyroxine 200 mcg tablet 225 mcg PO DAILY 07/21/23 07/21/23 History losartan 25 mg tablet 25 mg PO DAILY 07/21/23 07/21/23 History metoprolol succinate 25 mg 25 mg PO DAILY 07/21/23 07/21/23 History tablet,extended release 24 hr ticagrelor 90 mg tablet (Brilinta) 90 mg PO BID 07/21/23 07/21/23 History fsfnam-qhxtmzhc-atdmqmi 2 cap PO TIDWMEAL 07/22/23 07/22/23 History 36,000-114,000-180,000 unit capsule,delay rel (Creon) Laboratory Tests 07/21/23 07/21/23 07/21/23 17:25 17:25 17:25 WBC 8.1 K/mm3 (4.5-10.0) RBC 4.66 M/mm3 (4.2-5.4) Hgb 13.3 g/dL (12.0-15.0) Hct 41.1 % (37.0-47.0) MCV 88.2 fl (80-100) MCH 28.5 pg (26-34) MCHC 32.4 g/dl (32-36) RDW 13.6 % (11.5-14.5) Plt Count 236 k/mm3 (150-375) MPV 9.6 fl (7.4-10.4) Immature Gran % (Auto) 0.2 % (0-0.5) Neut % (Auto) 61.7 % (45.5-73.1) Lymph % (Auto) 29.3 % (18.3-44.2) [place] % (Auto) 7.4 % (2.6-8.5) Eos % (Auto) 1.0 % (0-4.4) Baso % (Auto) 0.4 % (0.2-1.2) Lymph # (Auto) 2.36 K/mm3 (0.9-3.2) [place] # (Auto) 0.6 K/mm3 (0.1-0.6) Eos # (Auto) 0.1 K/mm3 (0-0.3) Baso # (Auto) 0.0 K/mm3 (0.0-0.1) Abs Immat Gran (auto) 0.02 K/mm3 (0.00-0.031) Absolute Neuts (auto) 5.0 K/mm3 (1.3-6.7) Absolute Nucleated RBC 0.000 K/mm3 (0.0-0.012) Nucleated RBC % 0.0 % (0.0-0.2) PT Cancelled 13.1 Seconds (11.1-14.
--- NOTE | 2023-07-22 11:39 | WPDGICN ---
Assessment and Plan Assessment and plan (1) Melena: Code(s): K92.1 - Melena Status: Acute Assessment and Plan: noted dark stools but h/h stable on iv protonix will proceed with egd to assess if gib since she was just started recently on brilinta more recommendations after scope (2) Occult blood in stools: Code(s): R19.5 - Other fecal abnormalities Status: Acute Assessment and Plan: probably perianal had recent colonoscopy also ? melena egd now (3) CAD (coronary artery disease): Code(s): I25.10 - Atherosclerotic heart disease of [place] coronary artery without angina pectoris Status: Acute Assessment and Plan: evaluated by cardiology (4) Chronic pancreatitis: Qualifiers: Pancreatitis type: other Qualified Code(s): K86.1 - Other chronic pancreatitis Code(s): K86.1 - Other chronic pancreatitis Status: Acute Assessment and Plan: on pancreatic enzymes (5) Chylomicronemia syndrome: Code(s): E78.3 - Hyperchylomicronemia Status: Acute Assessment and Plan: this has caused chronic pancreatitis on medication (6) Nausea: Code(s): R11.0 - Nausea Status: Acute (7) Abnormal CT scan, esophagus: Code(s): R93.3 - Abnormal findings on diagnostic imaging of other parts of digestive tract Status: Acute Assessment and Plan: will assess with egd if esophagitis/gastritis (8) 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 She suffers with hyper triglyceridemia that requires episodes of plasmapheresis and now she has chronic pancreatitis for which has been admitted several times, using pancreatic enzymes.? Patient has had evaluation in [place] and even [facility]She had normal EGD last year by Dr Jones and earlier this month had screening colonoscopy, no polyps, only diverticulosis. She went to visit family in [place], [place] and then deveoped chest pain, she underwent cardiac cath that required stents x3 and started on brilinta. She was released last Saturday then started with liquid stools, this improved Saturday but then next day noted dark tarry stool which is new to her. She came to ER, hgb stable 12.5-13 but had positive occult blood in stool, denies previous GIB. She has gerd and already using protonix at home. CT scan reviewed, showed moderate esophagitis and antral gastritis. Distended urinary bladder, correlate for findings of urinary retention. She also mentioned chest pain and cardiology evaluated patient, troponin negative. Review of Systems Review of Systems: melena, n/v, abdominal pain, watery diarrhea. Constitutional: Constitutional: Denies chills, Denies fever(s) and Denies night sweats Eyes: Eyes: Denies change in vision ENT: Denies dysphagia and Denies odynophagia Cardiovascular: Cardiovascular: Reports chest pain, Denies leg edema, Denies radiating jaw, neck or arm pain and Denies palpitations Respiratory: Respiratory: Denies cough and Denies dyspnea Gastrointestinal: Gastrointestinal: Reports abdominal pain, Reports melena, Reports diarrhea and Reports nausea Genitourinary: Genitourinary: Denies dysuria Musculoskeletal: Musculoskeletal: Denies arthralgias Integumentary/Breasts: Skin/Breast: Denies rash Neurologic: Denies focal weakness and Denies Sensory deficit (Neuro) Psychiatric: Psychiatric: Reports no additional psychiatric complaints and Reports as per HPI Endocrine: Endocrine: Denies cold intolerance, Denies flushing, Denies heat intolerance, Denies polyphagia, Denies polydipsia, Denies polyuria and Denies palpitat
[2023-07-22 12:19] LABS: Glucose Point of Care 106 mg/dl (65-105)
[2023-07-22] MEDS: LACTATED RINGERS 1,000 ML 150 ML IV CONT (12:19)
--- NOTE | 2023-07-22 12:34 | PC.NURSE ---
Returned from GI Lab. Report received from [CLAU Steven ].
[2023-07-22] MEDS: LIPASE/AMYLASE/PROTEASE 12,000 UNITS CAP 6 CAP PO ×2 (12:45→16:58)
[2023-07-22 13:09] LABS: Glucose Point of Care 126 mg/dl (65-105)
[2023-07-22 16:37] LABS: Hemoglobin 12.2 g/dL (12.0-15.0)
[2023-07-22 16:57] LABS: Glucose Point of Care 261 mg/dl (65-105)
--- NOTE | 2023-07-22 17:04 | P.PNIM_ITS ---
Progress Note: A&P Assessment and Plan (1) Melena: Code(s): K92.1 - Melena Status: Acute Assessment and Plan: * patient started on PPI * GI consult and recommendations appreciated * continue to monitor hemoglobin and hematocrit * no new bleeding * EGD was normal and GI states okay to resume cardiac medications (2) Chest pain: Qualifiers: Chest pain type: unspecified Qualified Code(s): R07.9 - Chest pain, unspecified Code(s): R07.9 - Chest pain, unspecified Status: Acute Assessment and Plan: * EKG with no acute changes * Sinus rhythm with a rate of 82 with minimal Q-waves in inferior leads * On telemetry * Troponin negative x3 (3) Hypertriglyceridemia: Code(s): E78.1 - Pure hyperglyceridemia Status: Acute Assessment and Plan: * continue fenofibrate * Triglycerides 717 * Will try to see if she can have her pheresis while inpatient. At the very least we can flush her Port-A-Cath. (4) Chronic pancreatitis: Qualifiers: Pancreatitis type: other Qualified Code(s): K86.1 - Other chronic pancreatitis Code(s): K86.1 - Other chronic pancreatitis Status: Acute Assessment and Plan: * Lipase is normal * Continue pancreatic enzymes * She reports abdominal pain her left upper quadrant * Morphine p.r.n. for pain * Zofran for nausea (5) Tobacco use: Code(s): Z72.0 - Tobacco use Status: Acute Assessment and Plan: * nicotine patch as needed * Smoking cessation counseling (6) Insulin dependent diabetes mellitus: Status: Chronic Assessment and Plan: Hemoglobin A1c from March/2023 was 9.3% * Hold metformin * A.c. HS Accu-Cheks * Lantus 34 units daily and sliding scale insulin per home dose * Hypoglycemia protocol (7) CAD (coronary artery disease): Code(s): I25.10 - Atherosclerotic heart disease of [place] coronary artery without angina pectoris Status: Acute Assessment and Plan: Known CAD with recent [place] status post PCI with 2 stents placed * Restarted home medications of aspirin, Lipitor, losartan, metoprolol, Brilinta * Cardiology consulted in recs are appreciated * Will order cardiac rehab at discharge Plan Transfer out of the IMU to [facility] Subjective Date/time seen: 07/22/23 17:04 Interval history: HPI obtained from the chart, This is a 47-year-old female with past medical history significant for hypertriglyceridemia,? chronic pancreatitis, coronary artery disease, [place], status post PCI with 2 stents.? Patient presents to the emergency room after having 1 week diarrhea, nausea, vomiting diarrhea stopped but in the morning she had a melena, denies any bright red blood per rectum, no coffee-ground emesis, no hematemesis. Patient was recently started on Brilinta.? Preliminary workup here patient was positive for Hemoccult. GI was consulted for possible GI bleed. Patient is seen today after her EGD resting in bed eating lunch. She does not appear in acute distress. She states that she started having bright red blood per rectum yesterday as well as left upper quadrant abdominal pain and atypical chest pain. The pain to her chest is located to the left of her sternum and travels in her back and through her left arm. She reports that as a pressure and states it is similar to the pain she had when she presented for her [place]. She denies shortness of breath or dizziness. She also has left upper quadrant abdominal pain which she feels is similar to her pain she experiences with pancreatitis. H
--- NOTE | 2023-07-22 17:04 | PM.IMPN ---
Progress Note: A&P Assessment and Plan (1) Melena: Code(s): K92.1 - Melena Status: Acute Assessment and Plan: patient started on PPI GI consult and recommendations appreciated continue to monitor hemoglobin and hematocrit no new bleeding EGD was normal and GI states okay to resume cardiac medications (2) Chest pain: Qualifiers: Chest pain type: unspecified Qualified Code(s): R07.9 - Chest pain, unspecified Code(s): R07.9 - Chest pain, unspecified Status: Acute Assessment and Plan: EKG with no acute changes Sinus rhythm with a rate of 82 with minimal Q-waves in inferior leads On telemetry Troponin negative x3 (3) Hypertriglyceridemia: Code(s): E78.1 - Pure hyperglyceridemia Status: Acute Assessment and Plan: continue fenofibrate Triglycerides 717 Will try to see if she can have her pheresis while inpatient. At the very least we can flush her Port-A-Cath. (4) Chronic pancreatitis: Qualifiers: Pancreatitis type: other Qualified Code(s): K86.1 - Other chronic pancreatitis Code(s): K86.1 - Other chronic pancreatitis Status: Acute Assessment and Plan: Lipase is normal Continue pancreatic enzymes She reports abdominal pain her left upper quadrant Morphine p.r.n. for pain Zofran for nausea (5) Tobacco use: Code(s): Z72.0 - Tobacco use Status: Acute Assessment and Plan: nicotine patch as needed Smoking cessation counseling (6) Insulin dependent diabetes mellitus: Status: Chronic Assessment and Plan: Hemoglobin A1c from March/2023 was 9.3% Hold metformin A.c. HS Accu-Cheks Lantus 34 units daily and sliding scale insulin per home dose Hypoglycemia protocol (7) CAD (coronary artery disease): Code(s): I25.10 - Atherosclerotic heart disease of [place] coronary artery without angina pectoris Status: Acute Assessment and Plan: Known CAD with recent [place] status post PCI with 2 stents placed Restarted home medications of aspirin, Lipitor, losartan, metoprolol, Brilinta Cardiology consulted in recs are appreciated Will order cardiac rehab at discharge Plan Transfer out of the IMU to [facility] Subjective Date/time seen: 07/22/23 17:04 Interval history: HPI obtained from the chart, This is a 47-year-old female with past medical history significant for hypertriglyceridemia,? chronic pancreatitis, coronary artery disease, [place], status post PCI with 2 stents.? Patient presents to the emergency room after having 1 week diarrhea, nausea, vomiting diarrhea stopped but in the morning she had a melena, denies any bright red blood per rectum, no coffee-ground emesis, no hematemesis. Patient was recently started on Brilinta.? Preliminary workup here patient was positive for Hemoccult. GI was consulted for possible GI bleed. Patient is seen today after her EGD resting in bed eating lunch. She does not appear in acute distress. She states that she started having bright red blood per rectum yesterday as well as left upper quadrant abdominal pain and atypical chest pain. The pain to her chest is located to the left of her sternum and travels in her back and through her left arm. She reports that as a pressure and states it is similar to the pain she had when she presented for her [place]. She denies shortness of breath or dizziness. She also has left upper quadrant abdominal pain which she feels is similar to her pain she experiences with pancreatitis. Her lipase is normal but she says that her lipase is never truly elevated during her pancreatitis episodes. She has also experienced nausea that went away with Zofran. On an unrelated note, she is asking if she can have plasma pheresis while inpatient or least have her ports in her chest flushed while she is inpatient. She has an appointment scheduled for 07-23 at 9:00 a.m. for port flush. She intermittently
[2023-07-22] MEDS: MORPHINE SULFATE (*CRX) 2 MG/ML INJ IV PUSH ×2 (18:20→23:38)
[2023-07-22 20:23] LABS: Glucose Point of Care 195 mg/dl (65-105)
[2023-07-23] VITALS (8 sets, daily range): BP systolic 100–118; BP diastolic 40–72; PULSE 58–86; RESP 12–18; TEMP 36–36.6; O2SAT 96–99
[2023-07-23 05:15] LABS: Hemoglobin 12.7 g/dL (12.0-15.0); Mean Corpuscular HGB Conc 31.8 g/dl (32-36); Mean Corpuscular Hemoglobin 28.2 pg (26-34); Mean Corpuscular Volume 88.9 fl (80-100); Mean Platelet Volume 9.8 fl (7.4-10.4); Platelet Count Result 220 k/mm3 (150-375); Red Cell Distribution Width 13.6 % (11.5-14.5); White Blood Count 5.7 K/mm3 (4.5-10.0)
[2023-07-23] MEDS: LEVOTHYROXINE SODIUM 75 MCG TABLET 225 MCG PO (05:21)
[2023-07-23] MEDS: MORPHINE SULFATE (*CRX) 2 MG/ML INJ IV PUSH ×5 (05:22→20:11)
[2023-07-23 05:33] LABS: Alanine Aminotransferase 19 U/L (6-35); Albumin Level 3.9 g/dL (3.5-5.1); Alkaline Phosphatase 85 U/L (38-126); Anion Gap 6 mmol/L (8-16); Aspartate Amino Transferase 22 U/L (14-36); Bilirubin,Total 0.3 mg/dL (0.2-1.3); Blood Urea Nitrogen 11 mg/dL (7-17); Carbon Dioxide 29 mmol/L (22-30); Chloride 101 mmol/L (98-107); Estimated CRCL calculation 105 ml/min; Estimated Glomerular Filt Rate > 60; Glucose 263 mg/dL (65-110); Magnesium 1.2 mg/dL (1.6-2.3); Potassium 3.6 mmol/L (3.4-5.0); Sodium 136 mmol/L (137-145)
[2023-07-23 08:27] LABS: Glucose Point of Care 197 mg/dl (65-105)
[2023-07-23] MEDS: ATORVASTATIN 40 MG TABLET 80 MG PO (08:31)
[2023-07-23] MEDS: LOSARTAN POTASSIUM 25 MG TABLET PO (08:31)
[2023-07-23] MEDS: PANTOPRAZOLE SODIUM IV 40 MG VIAL IV PUSH ×2 (08:31→20:10)
[2023-07-23] MEDS: buPROPion HCL SR (12 HR) 150 MG TAB PO (08:31)
[2023-07-23] MEDS: CITALOPRAM HYDROBROMIDE 20 MG TABLET 40 MG PO (08:31)
[2023-07-23] MEDS: TICAGRELOR 90 MG TABLET PO ×2 (08:31→20:12)
[2023-07-23] MEDS: LIPASE/AMYLASE/PROTEASE 12,000 UNITS CAP 6 CAP PO (08:31)
[2023-07-23] MEDS: FENOFIBRATE NANOCRYSTALLIZED 145 MG TABLET PO (08:31)
[2023-07-23] MEDS: METOPROLOL SUCCINATE EXT REL 25 MG TABCR PO (08:31)
[2023-07-23] MEDS: ASPIRIN 81 MG ENTERIC TABLET PO (08:31)
[2023-07-23] MEDS: INSULIN GLARGINE (*BKC) 100 UNITS/ML 34 UNITS SUB-Q (08:32)
[2023-07-23] MEDS: INSULIN ASPART (*BKC) 100 UNITS/ML SUB-Q ×2 (08:32→16:05)
[2023-07-23] MEDS: MAGNESIUM OXIDE 400 MG TABLET PO (08:32)
--- NOTE | 2023-07-23 08:49 | P.PNIM_ITS ---
Progress Note: A&P Assessment and Plan (1) Melena: Code(s): K92.1 - Melena Status: Acute Assessment and Plan: * patient started on PPI * GI consult and recommendations appreciated * continue to monitor hemoglobin and hematocrit * no new bleeding * EGD was normal and GI states okay to resume cardiac medications 07/22: * Hemoglobin stable at 12.7 * No new bleeding * I read the EGD report to her as she had concerns for gastritis and esophagitis seen on CT scan. Explained that EGD is best way to diagnose this and there were no clinical signs found. * Last bowel movement 2 days ago. Have nursing evaluate next bowel movement to monitor color. (2) Chest pain: Qualifiers: Chest pain type: unspecified Qualified Code(s): R07.9 - Chest pain, unspecified Code(s): R07.9 - Chest pain, unspecified Status: Acute Assessment and Plan: * EKG with no acute changes * Sinus rhythm with a rate of 82 with minimal Q-waves in inferior leads * On telemetry * Troponin negative x3 07/22: * Continues to complain of atypical chest pain * Repeated troponin today per her request * Troponins have been negative x3 * She remains on telemetry (3) Hypertriglyceridemia: Code(s): E78.1 - Pure hyperglyceridemia Status: Acute Assessment and Plan: * continue fenofibrate * Triglycerides 717 * Will try to see if she can have her pheresis while inpatient. At the very least we can flush her Port-A-Cath. 07/22: * Repeat triglycerides today * Repeat amylase and lipase * Discussed plan of care with plasmapheresis nurse Vaishali Robertson [phone] (4) Chronic pancreatitis: Qualifiers: Pancreatitis type: other Qualified Code(s): K86.1 - Other chronic pancreatitis Code(s): K86.1 - Other chronic pancreatitis Status: Acute Assessment and Plan: * Lipase is normal * Continue pancreatic enzymes * She reports abdominal pain her left upper quadrant * Morphine p.r.n. for pain * Zofran for nausea 07/22: * 70% of meal consumed for dinner but she states she is having increased abdominal pain. * Denies nausea * Will place her NPO * Start on IV fluids * P.r.n. morphine for pain * Repeat amylase and lipase (5) Tobacco use: Code(s): Z72.0 - Tobacco use Status: Acute Assessment and Plan: * nicotine patch as needed * Smoking cessation counseling (6) Insulin dependent diabetes mellitus: Status: Chronic Assessment and Plan: Hemoglobin A1c from March/2023 was 9.3% * Hold metformin * A.c. HS Accu-Cheks * Lantus 34 units daily and sliding scale insulin per home dose * Hypoglycemia protocol * diabetic diet 07/22: * Blood sugars 195-197 (7) CAD (coronary artery disease): Code(s): I25.10 - Atherosclerotic heart disease of [place] coronary artery without angina pectoris Status: Acute Assessment and Plan: Known CAD with recent [place] status post PCI with 2 stents placed * Restarted home medications of aspirin, Lipitor, losartan, metoprolol, Brilinta * Cardiology consulted in recs are appreciated * Will order cardiac rehab at discharge 07/22: I discussed with her switching to Plavix verses Brilinta. GI says she is safe to resume her Brilinta. The patient would like to continue Brilinta for now. Plan Transfer out of the IMU to [facility] Subjective Date/time seen: 07/23/23 08:49 Interval history: HPI obtained from the chart,
--- NOTE | 2023-07-23 08:49 | PM.IMPN ---
Progress Note: A&P Assessment and Plan (1) Melena: Code(s): K92.1 - Melena Status: Acute Assessment and Plan: patient started on PPI GI consult and recommendations appreciated continue to monitor hemoglobin and hematocrit no new bleeding EGD was normal and GI states okay to resume cardiac medications 07/22: Hemoglobin stable at 12.7 No new bleeding I read the EGD report to her as she had concerns for gastritis and esophagitis seen on CT scan. Explained that EGD is best way to diagnose this and there were no clinical signs found. Last bowel movement 2 days ago. Have nursing evaluate next bowel movement to monitor color. (2) Chest pain: Qualifiers: Chest pain type: unspecified Qualified Code(s): R07.9 - Chest pain, unspecified Code(s): R07.9 - Chest pain, unspecified Status: Acute Assessment and Plan: EKG with no acute changes Sinus rhythm with a rate of 82 with minimal Q-waves in inferior leads On telemetry Troponin negative x3 07/22: Continues to complain of atypical chest pain Repeated troponin today per her request Troponins have been negative x3 She remains on telemetry (3) Hypertriglyceridemia: Code(s): E78.1 - Pure hyperglyceridemia Status: Acute Assessment and Plan: continue fenofibrate Triglycerides 717 Will try to see if she can have her pheresis while inpatient. At the very least we can flush her Port-A-Cath. 07/22: Repeat triglycerides today Repeat amylase and lipase Discussed plan of care with plasmapheresis nurse Vaishali Robertson [phone] (4) Chronic pancreatitis: Qualifiers: Pancreatitis type: other Qualified Code(s): K86.1 - Other chronic pancreatitis Code(s): K86.1 - Other chronic pancreatitis Status: Acute Assessment and Plan: Lipase is normal Continue pancreatic enzymes She reports abdominal pain her left upper quadrant Morphine p.r.n. for pain Zofran for nausea 07/22: 70% of meal consumed for dinner but she states she is having increased abdominal pain. Denies nausea Will place her NPO Start on IV fluids P.r.n. morphine for pain Repeat amylase and lipase (5) Tobacco use: Code(s): Z72.0 - Tobacco use Status: Acute Assessment and Plan: nicotine patch as needed Smoking cessation counseling (6) Insulin dependent diabetes mellitus: Status: Chronic Assessment and Plan: Hemoglobin A1c from March/2023 was 9.3% Hold metformin A.c. HS Accu-Cheks Lantus 34 units daily and sliding scale insulin per home dose Hypoglycemia protocol diabetic diet 07/22: Blood sugars 195-197 (7) CAD (coronary artery disease): Code(s): I25.10 - Atherosclerotic heart disease of [place] coronary artery without angina pectoris Status: Acute Assessment and Plan: Known CAD with recent [place] status post PCI with 2 stents placed Restarted home medications of aspirin, Lipitor, losartan, metoprolol, Brilinta Cardiology consulted in recs are appreciated Will order cardiac rehab at discharge 07/22: I discussed with her switching to Plavix verses Brilinta. GI says she is safe to resume her Brilinta. The patient would like to continue Brilinta for now. Plan Transfer out of the IMU to [facility] Subjective Date/time seen: 07/23/23 08:49 Interval history: HPI obtained from the chart, This is a 47-year-old female with past medical history significant for hypertriglyceridemia,? chronic pancreatitis, coronary artery disease, [place], status post PCI with 2 stents.? Patient presents to the emergency room after having 1 week diarrhea, nausea, vomiting diarrhea stopped but in the morning she had a melena, denies any bright red blood per rectum, no coffee-ground emesis, no hematemesis. Patient was recently started on Brilinta.? Preliminary workup here patient was positive for Hemoccult. GI was consulted for possibl
[2023-07-23] MEDS: SODIUM CHLORIDE 0.9% IV 1,000 ML 100 ML IV CONT ×2 (11:06→20:12)
[2023-07-23 12:05] LABS: Amylase 70 U/L (30-110); CRP 0.9 mg/dL (<1.0); Lipase 93 U/L (23-300); Triglycerides 511 mg/dL (<150)
[2023-07-23 12:13] LABS: Troponin I < 0.012 ng/mL (0.000-0.034)
--- NOTE | 2023-07-23 12:23 | PC.NURSE ---
Pt c/o's of dull, throbbing pain to RUQ with intermittent stabbing pain. No medications available at this time for pain relief, due to IVP Morphine was given at 1109 and is order q4hr. ANNA Carlson notified of pt's complaints and that there's no medications available. New orders placed by [facility]GEMENT [facility]IST
[2023-07-23] MEDS: ONDANSETRON INJ 4 MG/2 ML VIAL IV PUSH ×2 (12:42→20:10)
[2023-07-23 13:28] LABS: Glucose Point of Care 112 mg/dl (65-105)
--- NOTE | 2023-07-23 13:56 | PM.PNCARD ---
Progress Note: A&P Assessment and Plan (1) CAD (coronary artery disease): Code(s): I25.10 - Atherosclerotic heart disease of [place] coronary artery without angina pectoris Status: Acute Assessment and Plan: Continue ASA, Brilinta, high-intensity statin. Referral to cardiac rehab placed. Cardiology will sign off at this time. Please call us back if needed. Subjective Date/time seen: 07/23/23 13:56 Interval history: Reason for visit: Coronary artery disease s/p PCI HPI: This is a very pleasant but unfortunately complex 47-year-old lady I am seeing at the request of the hospitalist because of symptoms of melanotic stool and coronary artery disease with recent PCI done elsewhere.? The patient is not known to me prior to this encounter but has been hospitalized here a number of times at [facility].? Her medical history is primarily remarkable for severe hypertriglyceridemia to the point where she requires episodes of plasmapheresis for a treatment of this has been treated at [facility] in the past and also sometimes here at the direction of the and nephrology consultants.? She also has diabetes mellitus and at least several episodes of significant pancreatitis in the past because of her hypertriglyceridemia.? She recently was found to have coronary artery disease when she was visiting family member who was ill done in the [facility] and was hospitalized.? She reports undergoing catheterization and a multivessel stent procedure in the at the hospital in [place].? I do not have the details of this procedure the patient states that several high-grade lesions were stented and she had some other vessels that had modest non flow-limiting coronary disease.? Following that intervention she was placed on aspirin and Brilinta.? 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 The intervention was done on July 11.? She takes low-dose aspirin as well as Brilinta following this PCI.? She did take her aspirin yesterday it is noteworthy that aspirin has not been ordered in the hospital it is erroneously absent from her medication list.? She describes no knowledge of her history of peripheral vascular disease.? Her electrocardiogram shows sinus rhythm with a nonspecific T-wave abnormality is not significantly changed in comparison to a previous tracings that are in the chart.? She has normal troponin levels. Date of service 07/22: EGD yesterday was normal. She reports having abdominal pain/chest pain this morning. Troponin was checked which was negative. Review of Systems Review of Systems: All systems reviewed & are unremarkable except as noted in HPI and below (HPI) Exam Const: General: comfortable and no acute distress HENMT: Mouth: Yes moist mucous membranes Eyes: General: appearance normal, both eyes and all related structures Sclera: sclerae normal Neck: Neck: supple Resp: Effort & Inspection: normal respiratory effort Cardio: Rate: regular rate Rhythm: regular rhythm Skin: General skin exam: normal color Neuro: Speech: normal speech Psych: Mental Status: mental status grossly normal Affect: normal affect Objective Data Vital Signs Vital Signs: Vital Signs - 24 hr 07/22/23 15:48 07/22/23 16:00 07/22/23 20:00 Temperature 36.9 C 36.2 C L Pulse Rate 68 71 69 Respiratory Rate 16 16 Blood Pressure 97/47 L 95/51 L Pulse Oximetry 99 99 Oxygen Delivery 07/22/23 20:00 07/22/23 20:00 07/23/23 00:00 Temperature Pulse Rate 93 93 62 Respiratory Rate 16 Blood Pressure Pulse Oximetry 99 Oxygen Delivery Room Air 07/23/23 00:00 07/23/23 04:00 07/23/23 04:00 Temperature 36.4 C L 36.3 C L Pulse Rate 63 64 62 Respiratory Rate 12 12 Blood Pressure 100/57 L 118/52 L Pulse Oximetry 96 98 Oxygen Delivery 07/23/23 08:31 07/23/23 08:00 07/23/23 08:00 Temperature 36.3 C L Pulse
--- NOTE | 2023-07-23 14:39 | WPDGIPROGNO ---
Progress Note: A&P Assessment and Plan (1) Nausea & vomiting: Code(s): R11.2 - Nausea with vomiting, unspecified Status: Acute Assessment and Plan: amylase and lipase normal but she has known chronic pancreatitis from high TG levels nausea again and now she is npo, probably start liquid diet tomorrow if better (2) Melena: Code(s): K92.1 - Melena Status: Acute Assessment and Plan: egd was unremarkable on protonix no contraindications to keep using blood thinners (3) Occult blood in stools: Code(s): R19.5 - Other fecal abnormalities Status: Acute Assessment and Plan: no need to repeat colonoscopy normal h/h and just had one colonoscopy recently (4) Chronic pancreatitis: Qualifiers: Pancreatitis type: unspecified pancreatitis type Qualified Code(s): K86.1 - Other chronic pancreatitis Code(s): K86.1 - Other chronic pancreatitis Status: Acute (5) Hypertriglyceridemia: Code(s): E78.1 - Pure hyperglyceridemia Status: Acute Assessment and Plan: this has caused pancreatitis in the past treated with plasmapharesis as needed (6) Type 2 diabetes mellitus: 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: 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 Diabetes mellitus complication status: without complication Qualified Code(s): E11.9 - Type 2 diabetes mellitus without complications; Z79.4 - [facility] (current) use of insulin Code(s): E11.9 - Type 2 diabetes mellitus without complications Status: Acute Subjective Date/time seen: 07/23/23 14:39 Interval history: egd normal, no signs of bleeding but started having nausea and abdominal discomfort similar to previous episode of flare chronic pancreatitis Review of Systems Review of Systems: All systems reviewed & are unremarkable except as noted in HPI and below Exam Const: General: comfortable and no acute distress HENMT: Mouth: Yes moist mucous membranes Eyes: General: appearance normal, both eyes and all related structures Sclera: sclerae normal Neck: Neck: supple Resp: Effort & Inspection: normal respiratory effort Cardio: Rate: regular rate Rhythm: regular rhythm GI: GI Palp: Yes Soft to palpation and Yes Tenderness to palpation present (GI) (mild ttp in epigastric, no rebound) Auscultation: normal bowel sounds Skin: General skin exam: normal color Neuro: Speech: normal speech Motor exam (neuro): 5/5 motor strength present throughout Extrem: General: normal to inspection Psych: Mental Status: mental status grossly normal Affect: normal affect Objective Data Vital Signs Vital Signs: Vital Signs - 24 hr 07/22/23 15:48 07/22/23 16:00 07/22/23 20:00 Temperature 98.4 F 97.1 F L Pulse Rate 68 71 69 Respiratory Rate 16 16 Blood Pressure 97/47 L 95/51 L Pulse Oximetry 99 99 Oxygen Delivery 07/22/23 20:00 07/22/23 20:00 07/23/23 00:00 Temperature Pulse Rate 93 93 62 Respiratory Rate 16 Blood Pressure Pulse Oximetry 99 Oxygen Delivery Room Air 07/23/23 00:00 07/23/23 04:00 07/23/23 04:00 Temperature 97.5 F L 97.4 F L Pulse Rate 63 64 62 Respiratory Rate 12 12 Blood Pressure 100/57 L 118/52 L Pulse Oximetry 96 98 Oxygen Delivery 07/23/23 08:31 07/23/23 08:00 07/23/23 08:00 Temperature 97.4 F L Pulse Rate 59 L 65 Respiratory Rate 18 Blood Pressure 101/40 L Pulse Oximetry 97 97 Oxygen Delivery Room Air 07/23/23 08:00 07/23/23 12:00 07/23/23 12:00 Temperature 96.8 F L Pulse Rate 86 74 74 Respiratory Rate 16 Blood Pressure 111/54 L Pulse Oximetry 99 Oxygen Delivery Intake/Output Intake/Output: Intake & Output 07/20/23 07/21/23 07/22/23 07/23/23 23:59 23:59 23:59 23:59 Intake Total 500 560 924 Output Total 750 100 Balance 500 -190 824 Meds/Results Medications: Active Medications Generic Name Dose Route Start Last Admin Trade Name Freq PRN [place]
[2023-07-23 15:52] LABS: Glucose Point of Care 145 mg/dl (65-105)
[2023-07-23] MEDS: traZODone HCL 50 MG TABLET 200 MG PO (20:12)
[2023-07-23] MEDS: LORazepam (*CRX) 1 MG TABLET PO (20:12)
[2023-07-23 20:33] LABS: Glucose Point of Care 126 mg/dl (65-105)
--- NOTE | 2023-07-23 22:14 | PC.NURSE ---
This patient, Casandra Jones, was transferred to [[id number] ] on 07/23/23 at 2214. Personal belongings sent with patient. Report given to [Tameka rivera ]. Appropriate documentation sent with patient.
--- NOTE | 2023-07-23 22:55 | PC.NURSE ---
Pt received via bed from IMU. Oriented to unit policy's. bed alarm on and call light given to patient.
[2023-07-24] MEDS: ONDANSETRON INJ 4 MG/2 ML VIAL IV PUSH ×3 (01:01→09:04)
[2023-07-24] MEDS: MORPHINE SULFATE (*CRX) 2 MG/ML INJ IV PUSH ×6 (01:01→23:03)
[2023-07-24] MEDS: SODIUM CHLORIDE 0.9% IV 1,000 ML 100 ML IV CONT ×2 (04:58→15:01)
[2023-07-24] MEDS: LEVOTHYROXINE SODIUM 75 MCG TABLET 225 MCG PO (05:42)
[2023-07-24 05:55] VITALS: BP 125/73; PULSE 65; RESP 20; TEMP 36.1; O2SAT 97
[2023-07-24 07:41] LABS: Basophils Percent Auto 0.5 % (0.2-1.2); Eosinophils Absolute Auto 0.1 K/mm3 (0-0.3); Eosinophils Percent Auto 1.6 % (0-4.4); Hematocrit 36.8 % (37.0-47.0); Hemoglobin 11.8 g/dL (12.0-15.0); Immature Granulocyte Absolute 0.03 K/mm3 (0.00-0.031); Immature Granulocyte Percent A 0.5 % (0-0.5); Lymphocytes Absolute Auto 2.02 K/mm3 (0.9-3.2); Lymphocytes Percent Auto 36.7 % (18.3-44.2); Mean Corpuscular HGB Conc 32.1 g/dl (32-36); Mean Corpuscular Hemoglobin 28.4 pg (26-34); Mean Corpuscular Volume 88.5 fl (80-100); Mean Platelet Volume 9.6 fl (7.4-10.4); Monocytes Absolute Auto 0.4 K/mm3 (0.1-0.6); Neutrophils Absolute Auto 2.9 K/mm3 (1.3-6.7); Neutrophils Percent Auto 52.7 % (45.5-73.1); Platelet Count Result 186 k/mm3 (150-375); Red Blood Count 4.16 M/mm3 (4.2-5.4); Red Cell Distribution Width 13.4 % (11.5-14.5); White Blood Count 5.5 K/mm3 (4.5-10.0)
[2023-07-24 08:05] LABS: Glucose Point of Care 82 mg/dl (65-105)
[2023-07-24 08:11] LABS: Amylase 52 U/L (30-110); Anion Gap 4 mmol/L (4-12); Blood Urea Nitrogen 8 mg/dL (7-17); Calcium 8.3 mg/dL (8.4-10.2); Carbon Dioxide 31 mmol/L (22-30); Chloride 105 mmol/L (98-107); Estimated CRCL calculation 81 ml/min; Estimated Glomerular Filt Rate > 60; Glucose 84 mg/dL (65-110); Lipase 33 U/L (23-300); Potassium 3.7 mmol/L (3.4-5.0); Sodium 140 mmol/L (137-145)
[2023-07-24] MEDS: ASPIRIN 81 MG ENTERIC TABLET PO (09:11)
[2023-07-24] MEDS: FENOFIBRATE NANOCRYSTALLIZED 145 MG TABLET PO (09:11)
[2023-07-24] MEDS: METOPROLOL SUCCINATE EXT REL 25 MG TABCR PO (09:11)
[2023-07-24] MEDS: TICAGRELOR 90 MG TABLET PO ×2 (09:11→21:10)
[2023-07-24] MEDS: ATORVASTATIN 40 MG TABLET 80 MG PO (09:11)
[2023-07-24] MEDS: MAGNESIUM OXIDE 400 MG TABLET PO (09:11)
[2023-07-24] MEDS: buPROPion HCL SR (12 HR) 150 MG TAB PO (09:11)
[2023-07-24] MEDS: CITALOPRAM HYDROBROMIDE 20 MG TABLET 40 MG PO (09:11)
[2023-07-24] MEDS: INSULIN GLARGINE (*BKC) 100 UNITS/ML 34 UNITS SUB-Q (09:16)
[2023-07-24] MEDS: PANTOPRAZOLE SODIUM IV 40 MG VIAL IV PUSH ×2 (09:20→21:12)
[2023-07-24] MEDS: LOSARTAN POTASSIUM 25 MG TABLET PO (09:23)
[2023-07-24] MEDS: LORazepam (*CRX) 1 MG TABLET PO ×2 (09:42→21:10)
[2023-07-24 10:55] LABS: Triglycerides 319 mg/dL (<150)
[2023-07-24 11:39] LABS: Glucose Point of Care 83 mg/dl (65-105)
[2023-07-24] MEDS: LIPASE/AMYLASE/PROTEASE 12,000 UNITS CAP 6 CAP PO ×2 (12:20→17:26)
[2023-07-24 14:00] VITALS: BP 118/49; PULSE 68; RESP 18; TEMP 36.1; O2SAT 98
--- NOTE | 2023-07-24 14:33 | WPDGIPROGNO ---
Progress Note: A&P Assessment and Plan (1) Nausea & vomiting: Code(s): R11.2 - Nausea with vomiting, unspecified Status: Acute Assessment and Plan: amylase and lipase normal but she has known chronic pancreatitis from high TG levels tolerating liquid diet, will advance to low fat as tolerated continue with antiemetics and analgesics as needed (2) Melena: Code(s): K92.1 - Melena Status: Acute Assessment and Plan: egd was unremarkable on protonix no contraindications to keep using blood thinners (3) Occult blood in stools: Code(s): R19.5 - Other fecal abnormalities Status: Acute Assessment and Plan: no need to repeat colonoscopy she just had one colonoscopy recently (4) Chronic pancreatitis: Qualifiers: Pancreatitis type: unspecified pancreatitis type Qualified Code(s): K86.1 - Other chronic pancreatitis Code(s): K86.1 - Other chronic pancreatitis Status: Acute (5) Hypertriglyceridemia: Code(s): E78.1 - Pure hyperglyceridemia Status: Acute Assessment and Plan: this has caused pancreatitis in the past treated with plasmapharesis as needed (6) Type 2 diabetes mellitus: Qualifiers: Diabetes mellitus [employer] insulin use: with [employer] use Diabetes mellitus complication status: without complication Qualified Code(s): E11.9 - Type 2 diabetes mellitus without complications; Z79.4 - care home (current) use of insulin Code(s): E11.9 - Type 2 diabetes mellitus without complications Status: Acute Assessment and Plan: on insulin Subjective Date/time seen: 07/24/23 14:33 Interval history: feeling comfortable, less pain and less nausea Review of Systems Review of Systems: All systems reviewed & are unremarkable except as noted in HPI and below Exam Const: General: comfortable and no acute distress HENMT: Mouth: Yes moist mucous membranes Eyes: General: appearance normal, both eyes and all related structures Sclera: sclerae normal Neck: Neck: supple Resp: Effort & Inspection: normal respiratory effort Cardio: Rate: regular rate Rhythm: regular rhythm GI: GI Palp: Yes Soft to palpation and Yes Tenderness to palpation present (GI) (less ttp in epigastric, no rebound) Auscultation: normal bowel sounds Skin: General skin exam: normal color Neuro: Speech: normal speech Motor exam (neuro): 5/5 motor strength present throughout Extrem: General: normal to inspection Psych: Mental Status: mental status grossly normal Affect: normal affect Objective Data Vital Signs Vital Signs: Vital Signs - 24 hr 07/23/23 16:00 07/23/23 19:34 07/23/23 20:00 Temperature 97.5 F L 97.9 F Pulse Rate 58 L 67 70 Respiratory Rate 16 16 16 Blood Pressure 118/71 104/72 Pulse Oximetry 96 97 97 Oxygen Delivery Room Air 07/23/23 22:56 07/24/23 05:55 07/24/23 09:11 Temperature 96.9 F L Pulse Rate 65 Respiratory Rate 20 Blood Pressure 125/73 Pulse Oximetry 97 Oxygen Delivery Room Air Room Air 07/24/23 14:00 Temperature 96.9 F L Pulse Rate 68 Respiratory Rate 18 Blood Pressure 118/49 L Pulse Oximetry 98 Oxygen Delivery Intake/Output Intake/Output: Intake & Output 07/21/23 07/22/23 07/23/23 07/24/23 23:59 23:59 23:59 23:59 Intake Total 855 458 1818 1356.7 Output Total 750 1100 Balance 500 -190 1124 1356.7 Meds/Results Medications: Active Medications Generic Name Dose Route Start Last Admin Trade Name Freq PRN Reason Stop Dose Admin Lipase/Protease/Amylase 6 cap 07/22/23 08:00 07/24/23 12:20 Lipase/Amylase/Protease 12,000 Units Cap PO 6 cap TIDWM RAPHAEL Administration Lipase/Protease/Amylase 3 cap 07/22/23 01:11 Lipase/Amylase/Protease 12,000 Units Cap PO PRN PRN WITH SNACKS Aspirin 81 mg 07/22/23 09:30 07/24/23 09:11 Aspirin 81 Mg Enteric Tablet PO 81 mg QAM RAPHAEL Administration Atorvastatin Calcium
[2023-07-24] MEDS: HEPARIN SODIUM, PORCINE 10,000 UNITS/10 ML VIAL 10000 UNITS IV PUSH (15:38)
--- NOTE | 2023-07-24 16:02 | PC.NURSE ---
APHERESIS PORT FLUSH - Bilateral - +Blood Return + Flush w/o Resistance - Locked with Heparin 1000u/mL 5mL each Port. Rory OLGUIN
--- NOTE | 2023-07-24 16:09 | P.PNIM_ITS ---
Progress Note: A&P Assessment and Plan (1) Melena: Code(s): K92.1 - Melena Status: Acute Assessment and Plan: * PPI * monitor hemoglobin and hematocrit * EGD was normal and GI states okay to resume cardiac medications (2) Chest pain: Qualifiers: Chest pain type: unspecified Qualified Code(s): R07.9 - Chest pain, unspecified Code(s): R07.9 - Chest pain, unspecified Status: Acute Assessment and Plan: * EKG with no acute changes * Sinus rhythm with a rate of 82 with minimal Q-waves in inferior leads * On telemetry * Troponin negative x3 (3) Hypertriglyceridemia: Code(s): E78.1 - Pure hyperglyceridemia Status: Chronic Assessment and Plan: * continue fenofibrate * Triglycerides 319 today * lipase/amylase 33/52 * Discussed plan of care with plasmapheresis nurse Vaishali Robertson, to come inpatient today (4) Chronic pancreatitis: Qualifiers: Pancreatitis type: other Qualified Code(s): K86.1 - Other chronic pancreatitis Code(s): K86.1 - Other chronic pancreatitis Status: Chronic Assessment and Plan: * Continue pancreatic enzymes * She reports abdominal pain her left upper quadrant * Morphine p.r.n. for pain * Zofran for nausea * tolerating clears, will advance as tolerated (5) Tobacco use: Code(s): Z72.0 - Tobacco use Status: Chronic Assessment and Plan: * nicotine patch as needed * Smoking cessation counseling (6) Insulin dependent diabetes mellitus: Status: Chronic Assessment and Plan: Hemoglobin A1c from March/2023 was 9.3% * Hold metformin * A.c. HS Accu-Cheks * Lantus 34 units daily and sliding scale insulin per home dose * Hypoglycemia protocol (7) CAD (coronary artery disease): Code(s): I25.10 - Atherosclerotic heart disease of [place] coronary artery without angina pectoris Status: Chronic Assessment and Plan: Known CAD with recent [place] status post PCI with 2 stents placed * Restarted home medications of aspirin, Lipitor, losartan, metoprolol, Brilinta * Will order cardiac rehab at discharge Subjective Date/time seen: 07/24/23 16:09 Interval history: Patient sitting up in bed this morning, in no acute distress. She reports her abdominal pain is improving, she is tolerating clear liquids and will advance diet as tolerated. Her triglycerides today were 319, spoke with Vaishali her pheresis nurse who will come to the hospital today. Will plan for d/c tomorrow if she continues to improve and tolerating diet. Review of Systems Review of Systems: All systems reviewed & are unremarkable except as noted in HPI and below Exam Narrative: General: well appearing, well developed, well nourished, appears stated age. HEENT: normocephalic, atraumatic. Mucous membranes moist. EOMI, PERRLA Respiratory: clear to auscultation bilaterally. No rales/rhonic/wheezes. Cardiovascular: RRR, normal S1-S2 upon auscultation. Abdomen: Soft, round, non-distended and left upper quadrant to midepigastric tenderness. Bowel sounds present to all four quadrants. Extremities: No cyanosis, clubbing, or edema present. Pulses are palpable 2/2. Active ROM to all four extremities. Neuro: Alert and orientated x 3. Cranial nerves 2-12 intact without focal deficit. Skin: Warm, dry, and intact, without rash, erythema, or lesion. Psych: pleasant, cooperative, normal speech, normal affect, no hallucinations, no dysarthria O
--- NOTE | 2023-07-24 16:09 | PM.IMPN ---
Progress Note: A&P Assessment and Plan (1) Melena: Code(s): K92.1 - Melena Status: Acute Assessment and Plan: PPI monitor hemoglobin and hematocrit EGD was normal and GI states okay to resume cardiac medications (2) Chest pain: Qualifiers: Chest pain type: unspecified Qualified Code(s): R07.9 - Chest pain, unspecified Code(s): R07.9 - Chest pain, unspecified Status: Acute Assessment and Plan: EKG with no acute changes Sinus rhythm with a rate of 82 with minimal Q-waves in inferior leads On telemetry Troponin negative x3 (3) Hypertriglyceridemia: Code(s): E78.1 - Pure hyperglyceridemia Status: Chronic Assessment and Plan: continue fenofibrate Triglycerides 319 today lipase/amylase 33/52 Discussed plan of care with plasmapheresis nurse Vaishali Robertson, to come inpatient today (4) Chronic pancreatitis: Qualifiers: Pancreatitis type: other Qualified Code(s): K86.1 - Other chronic pancreatitis Code(s): K86.1 - Other chronic pancreatitis Status: Chronic Assessment and Plan: Continue pancreatic enzymes She reports abdominal pain her left upper quadrant Morphine p.r.n. for pain Zofran for nausea tolerating clears, will advance as tolerated (5) Tobacco use: Code(s): Z72.0 - Tobacco use Status: Chronic Assessment and Plan: nicotine patch as needed Smoking cessation counseling (6) Insulin dependent diabetes mellitus: Status: Chronic Assessment and Plan: Hemoglobin A1c from March/2023 was 9.3% Hold metformin A.c. HS Accu-Cheks Lantus 34 units daily and sliding scale insulin per home dose Hypoglycemia protocol (7) CAD (coronary artery disease): Code(s): I25.10 - Atherosclerotic heart disease of [place] coronary artery without angina pectoris Status: Chronic Assessment and Plan: Known CAD with recent [place] status post PCI with 2 stents placed Restarted home medications of aspirin, Lipitor, losartan, metoprolol, Brilinta Will order cardiac rehab at discharge Subjective Date/time seen: 07/24/23 16:09 Interval history: Patient sitting up in bed this morning, in no acute distress. She reports her abdominal pain is improving, she is tolerating clear liquids and will advance diet as tolerated. Her triglycerides today were 319, spoke with Vaishali vent[place] pheresis nurse who will come to the hospital today. Will plan for d/c tomorrow if she continues to improve and tolerating diet. Review of Systems Review of Systems: All systems reviewed & are unremarkable except as noted in HPI and below Exam Narrative: General: well appearing, well developed, well nourished, appears stated age. HEENT: normocephalic, atraumatic. Mucous membranes moist. EOMI, PERRLA Respiratory: clear to auscultation bilaterally. No rales/rhonic/wheezes. Cardiovascular: RRR, normal S1-S2 upon auscultation. Abdomen: Soft, round, non-distended and left upper quadrant to midepigastric tenderness. Bowel sounds present to all four quadrants. Extremities: No cyanosis, clubbing, or edema present. Pulses are palpable 2/2. Active ROM to all four extremities. Neuro: Alert and orientated x 3. Cranial nerves 2-12 intact without focal deficit. Skin: Warm, dry, and intact, without rash, erythema, or lesion. Psych: pleasant, cooperative, normal speech, normal affect, no hallucinations, no dysarthria Objective Data Vital Signs Vital Signs: Vital Signs - 24 hr 07/23/23 19:34 07/23/23 20:00 07/23/23 22:56 Temperature 97.9 F Pulse Rate 67 70 Respiratory Rate 16 16 Blood Pressure 104/72 Pulse Oximetry 97 97 Oxygen Delivery Room Air Room Air 07/24/23 05:55 07/24/23 09:11 07/24/23 14:00 Temperature 96.9 F L 96.9 F L Pulse Rate 65 68 Respiratory Rate 20 18 Blood Pressure 125/73 118/49 L Pulse Oximetry 97 98 Oxygen Delivery Room Air Intake/Output Int
[2023-07-24 16:52] LABS: Glucose Point of Care 69 mg/dl (65-105)
[2023-07-24 17:31] LABS: Glucose Point of Care 103 mg/dl (65-105)
[2023-07-24 20:15] LABS: Glucose Point of Care 192 mg/dl (65-105)
[2023-07-24] MEDS: traZODone HCL 50 MG TABLET 200 MG PO (21:10)
[2023-07-24 23:42] VITALS: BP 113/57; PULSE 72; RESP 13; TEMP 36.6; O2SAT 94
[2023-07-25] MEDS: SODIUM CHLORIDE 0.9% IV 1,000 ML 100 ML IV CONT ×3 (02:43→20:34)
[2023-07-25] MEDS: LEVOTHYROXINE SODIUM 75 MCG TABLET 225 MCG PO (05:54)
[2023-07-25] MEDS: MORPHINE SULFATE (*CRX) 2 MG/ML INJ IV PUSH ×5 (05:57→19:41)
[2023-07-25 07:33] LABS: Hematocrit 36.8 % (37.0-47.0); Hemoglobin 11.9 g/dL (12.0-15.0); Mean Corpuscular HGB Conc 32.3 g/dl (32-36); Mean Corpuscular Hemoglobin 28.4 pg (26-34); Mean Corpuscular Volume 87.8 fl (80-100); Mean Platelet Volume 9.9 fl (7.4-10.4); Platelet Count Result 200 k/mm3 (150-375); Red Blood Count 4.19 M/mm3 (4.2-5.4); Red Cell Distribution Width 13.4 % (11.5-14.5); White Blood Count 5.7 K/mm3 (4.5-10.0)
[2023-07-25 07:52] LABS: Anion Gap 5 mmol/L (4-12); Blood Urea Nitrogen 8 mg/dL (7-17); Calcium 8.5 mg/dL (8.4-10.2); Carbon Dioxide 30 mmol/L (22-30); Chloride 104 mmol/L (98-107); Estimated CRCL calculation 92 ml/min; Estimated Glomerular Filt Rate > 60; Glucose 191 mg/dL (65-110); Lipase 44 U/L (23-300); Potassium 3.5 mmol/L (3.4-5.0); Sodium 139 mmol/L (137-145); Triglycerides 283 mg/dL (<150)
[2023-07-25 08:35] LABS: Glucose Point of Care 183 mg/dl (65-105)
[2023-07-25] MEDS: MAGNESIUM OXIDE 400 MG TABLET PO (09:05)
[2023-07-25] MEDS: LIPASE/AMYLASE/PROTEASE 12,000 UNITS CAP 6 CAP PO ×3 (09:05→17:31)
[2023-07-25] MEDS: buPROPion HCL SR (12 HR) 150 MG TAB PO (09:05)
[2023-07-25] MEDS: CITALOPRAM HYDROBROMIDE 20 MG TABLET 40 MG PO (09:05)
[2023-07-25] MEDS: FENOFIBRATE NANOCRYSTALLIZED 145 MG TABLET PO (09:05)
[2023-07-25 09:06] VITALS: PULSE 70
[2023-07-25] MEDS: ASPIRIN 81 MG ENTERIC TABLET PO (09:06)
[2023-07-25] MEDS: TICAGRELOR 90 MG TABLET PO ×2 (09:06→20:34)
[2023-07-25] MEDS: METOPROLOL SUCCINATE EXT REL 25 MG TABCR PO (09:06)
[2023-07-25] MEDS: ATORVASTATIN 40 MG TABLET 80 MG PO (09:06)
[2023-07-25] MEDS: LOSARTAN POTASSIUM 25 MG TABLET PO (09:07)
[2023-07-25] MEDS: PANTOPRAZOLE SODIUM IV 40 MG VIAL IV PUSH ×2 (09:21→20:34)
[2023-07-25] MEDS: INSULIN GLARGINE (*BKC) 100 UNITS/ML 34 UNITS SUB-Q (09:34)
[2023-07-25] MEDS: ONDANSETRON INJ 4 MG/2 ML VIAL IV PUSH (09:34)
[2023-07-25 11:44] LABS: Glucose Point of Care 220 mg/dl (65-105)
[2023-07-25] MEDS: INSULIN ASPART (*BKC) 100 UNITS/ML SUB-Q ×2 (12:28→17:30)
[2023-07-25 13:52] VITALS: BP 121/50; PULSE 79; RESP 20; O2SAT 93
--- NOTE | 2023-07-25 13:53 | ECG_ITS ---
Measurements Intervals [place] Rate: 74 P: 49 GA: 167 QRS: 35 QRSD: 82 T: -16 QT: 398 QTc: 443 Interpretive Statements SINUS RHYTHM MINIMAL Q WAVES- INFERIOR LEADS BORDERLINE ST-T WAVE ABNORMALITY- ANTEROLAT/INF LEADS BASELINE ARTIFACT- V3 BORDERLINE ECG NO SIGNIFICANT CHANGES Electronically Signed On 07-25-2023 14:08:24 CDT by Baron Bowers D.O.
[2023-07-25] MEDS: NITROGLYCERIN SL 0.4 MG TABLET SUBLINGUAL (14:24)
--- NOTE | 2023-07-25 15:26 | P.PNIM_ITS ---
Progress Note: A&P Assessment and Plan (1) Melena: Code(s): K92.1 - Melena Status: Acute Assessment and Plan: * PPI * monitor hemoglobin and hematocrit * EGD was normal and GI states okay to resume cardiac medications (2) Chest pain: Qualifiers: Chest pain type: unspecified Qualified Code(s): R07.9 - Chest pain, unspecified Code(s): R07.9 - Chest pain, unspecified Status: Acute Assessment and Plan: * EKG with no acute changes * Sinus rhythm with a rate of 82 with minimal Q-waves in inferior leads * On telemetry * Troponin negative x3 Patient reporting chest pain in the afternoon today radiating into left shoulder * repeat trops ordered * EKG showed no changes, SR * CT negative for acute process and PE * Nitro paste ordered as sublingual did not help * GI cocktail * no acute distress, on RA * could be epigastric? could be pancreatitis (3) Hypertriglyceridemia: Code(s): E78.1 - Pure hyperglyceridemia Status: Chronic Assessment and Plan: * continue fenofibrate * Triglycerides 319 today * lipase/amylase 33/52 * port flushed by pheresis nurse on 07/23 (4) Chronic pancreatitis: Qualifiers: Pancreatitis type: other Qualified Code(s): K86.1 - Other chronic pancreatitis Code(s): K86.1 - Other chronic pancreatitis Status: Chronic Assessment and Plan: * Continue pancreatic enzymes * She reports abdominal pain her left upper quadrant * Morphine p.r.n. for pain * Zofran for nausea * advance diet as tolerated (5) Tobacco use: Code(s): Z72.0 - Tobacco use Status: Chronic Assessment and Plan: * nicotine patch as needed * Smoking cessation counseling (6) Insulin dependent diabetes mellitus: Status: Chronic Assessment and Plan: Hemoglobin A1c from March/2023 was 9.3% * Hold metformin * A.c. HS Accu-Cheks * Lantus 34 units daily and sliding scale insulin per home dose * Hypoglycemia protocol (7) CAD (coronary artery disease): Code(s): I25.10 - Atherosclerotic heart disease of [place] coronary artery without angina pectoris Status: Chronic Assessment and Plan: Known CAD with recent [place] status post PCI with 2 stents placed * Restarted home medications of aspirin, Lipitor, losartan, metoprolol, Brilinta * Will order cardiac rehab at discharge Subjective Date/time seen: 07/25/23 15:26 Interval history: Patient having chest pain this afternoon. She was stable this am, planning d/c this afternoon but now will hold off due to condition. Stat EKG was normal, SR. VS stable. Chest CTA showed no acute process or PE. Patient reporting her chest pain not improved with sublingual nitro, radiating into left shoulder. Could be epigastric on exam. Patient not requiring oxygen, and is in no acute distress. Spoke with cardiology, Dr. Sheffield and will try nitro paste and GI cocktail. Not concerned for cardiac origin at this time. Will continue to monitor. Review of Systems Review of Systems: All systems reviewed & are unremarkable except as noted in HPI and below Exam Narrative: General: well appearing, well developed, well nourished, appears stated age. HEENT: normocephalic, atraumatic. Mucous membranes moist. EOMI, PERRLA Respiratory: clear to auscultation bilaterally. No rales/rhonic/wheezes. Cardiovascular: RRR, normal S1-S2 upon auscultation. Abdomen: Soft, round, non-distended and left upper quadrant to midepigastric
--- NOTE | 2023-07-25 15:26 | PM.IMPN ---
Progress Note: A&P Assessment and Plan (1) Melena: Code(s): K92.1 - Melena Status: Acute Assessment and Plan: PPI monitor hemoglobin and hematocrit EGD was normal and GI states okay to resume cardiac medications (2) Chest pain: Qualifiers: Chest pain type: unspecified Qualified Code(s): R07.9 - Chest pain, unspecified Code(s): R07.9 - Chest pain, unspecified Status: Acute Assessment and Plan: EKG with no acute changes Sinus rhythm with a rate of 82 with minimal Q-waves in inferior leads On telemetry Troponin negative x3 Patient reporting chest pain in the afternoon today radiating into left shoulder repeat trops ordered EKG showed no changes, SR CT negative for acute process and PE Nitro paste ordered as sublingual did not help GI cocktail no acute distress, on RA could be epigastric? could be pancreatitis (3) Hypertriglyceridemia: Code(s): E78.1 - Pure hyperglyceridemia Status: Chronic Assessment and Plan: continue fenofibrate Triglycerides 319 today lipase/amylase 33/52 port flushed by pheresis nurse on 07/23 (4) Chronic pancreatitis: Qualifiers: Pancreatitis type: other Qualified Code(s): K86.1 - Other chronic pancreatitis Code(s): K86.1 - Other chronic pancreatitis Status: Chronic Assessment and Plan: Continue pancreatic enzymes She reports abdominal pain her left upper quadrant Morphine p.r.n. for pain Zofran for nausea advance diet as tolerated (5) Tobacco use: Code(s): Z72.0 - Tobacco use Status: Chronic Assessment and Plan: nicotine patch as needed Smoking cessation counseling (6) Insulin dependent diabetes mellitus: Status: Chronic Assessment and Plan: Hemoglobin A1c from March/2023 was 9.3% Hold metformin A.c. HS Accu-Cheks Lantus 34 units daily and sliding scale insulin per home dose Hypoglycemia protocol (7) CAD (coronary artery disease): Code(s): I25.10 - Atherosclerotic heart disease of [place] coronary artery without angina pectoris Status: Chronic Assessment and Plan: Known CAD with recent [place] status post PCI with 2 stents placed Restarted home medications of aspirin, Lipitor, losartan, metoprolol, Brilinta Will order cardiac rehab at discharge Subjective Date/time seen: 07/25/23 15:26 Interval history: Patient having chest pain this afternoon. She was stable this am, planning d/c this afternoon but now will hold off due to condition. Stat EKG was normal, SR. VS stable. Chest CTA showed no acute process or PE. Patient reporting her chest pain not improved with sublingual nitro, radiating into left shoulder. Could be epigastric on exam. Patient not requiring oxygen, and is in no acute distress. Spoke with cardiology, Dr. Sheffield and will try nitro paste and GI cocktail. Not concerned for cardiac origin at this time. Will continue to monitor. Review of Systems Review of Systems: All systems reviewed & are unremarkable except as noted in HPI and below Exam Narrative: General: well appearing, well developed, well nourished, appears stated age. HEENT: normocephalic, atraumatic. Mucous membranes moist. EOMI, PERRLA Respiratory: clear to auscultation bilaterally. No rales/rhonic/wheezes. Cardiovascular: RRR, normal S1-S2 upon auscultation. Abdomen: Soft, round, non-distended and left upper quadrant to midepigastric tenderness. Bowel sounds present to all four quadrants. Extremities: No cyanosis, clubbing, or edema present. Pulses are palpable 2/2. Active ROM to all four extremities. Neuro: Alert and orientated x 3. Cranial nerves 2-12 intact without focal deficit. Skin: Warm, dry, and intact, without rash, erythema, or lesion. Psych: pleasant, cooperative, normal speech, normal affect, no hallucinations, no dysarthria Objective Data Vital Signs Vital Signs: Vital Signs - 24 hr
[2023-07-25] MEDS: BELLADONNA ALK/PHENOB ELIX 10 ML, MAG HYDROX/ALUMINUM HYD/SIMETH 30 ML, LIDOCAINE HCL 2... PO (15:32)
[2023-07-25] MEDS: NITROGLYCERIN OINTMENT 1 INCH DOSE TRANSDERM (15:33)
[2023-07-25 16:00] VITALS: BP 156/84; PULSE 96; RESP 20; TEMP 35.9; O2SAT 97
[2023-07-25 16:22] VITALS: PULSE 64
[2023-07-25 16:42] LABS: Glucose Point of Care 155 mg/dl (65-105)
--- NOTE | 2023-07-25 17:02 | WPDGIPROGNO ---
Progress Note: A&P Assessment and Plan (1) Nausea & vomiting: Code(s): R11.2 - Nausea with vomiting, unspecified Status: Acute Assessment and Plan: amylase and lipase normal but she has known chronic pancreatitis from high TG levels chest pain today, primary will get ekg and probably CTA chest continue with antiemetics and analgesics as needed (2) Melena: Code(s): K92.1 - Melena Status: Acute Assessment and Plan: egd was unremarkable on protonix no contraindications to keep using blood thinners no bleeding (3) Occult blood in stools: Code(s): R19.5 - Other fecal abnormalities Status: Acute Assessment and Plan: no need to repeat colonoscopy she just had one colonoscopy recently (4) Chronic pancreatitis: Qualifiers: Pancreatitis type: unspecified pancreatitis type Qualified Code(s): K86.1 - Other chronic pancreatitis Code(s): K86.1 - Other chronic pancreatitis Status: Acute Assessment and Plan: chronic nausea and similar abdominal discomfort on pancreatic enzymes (5) Hypertriglyceridemia: Code(s): E78.1 - Pure hyperglyceridemia Status: Chronic Assessment and Plan: this has caused pancreatitis in the past treated with plasmapharesis as needed TG now <300 (6) Type 2 diabetes mellitus: Qualifiers: Diabetes mellitus long-term insulin use: with long-term use Diabetes mellitus complication status: without complication Qualified Code(s): E11.9 - Type 2 diabetes mellitus without complications; Z79.4 - detention (current) use of insulin Code(s): E11.9 - Type 2 diabetes mellitus without complications Status: Acute Assessment and Plan: on insulin Subjective Date/time seen: 07/25/23 17:02 Interval history: still with nausea, today with chest pain and epigastric discomfort Review of Systems Review of Systems: All systems reviewed & are unremarkable except as noted in HPI and below Exam Const: General: comfortable and no acute distress HENMT: Mouth: Yes moist mucous membranes Eyes: General: appearance normal, both eyes and all related structures Sclera: sclerae normal Neck: Neck: supple Resp: Effort & Inspection: normal respiratory effort Cardio: Rate: regular rate Rhythm: regular rhythm GI: GI Palp: Yes Soft to palpation and Yes Tenderness to palpation present (GI) (epigastric, no rebound) Auscultation: normal bowel sounds Skin: General skin exam: normal color Neuro: Speech: normal speech Motor exam (neuro): 5/5 motor strength present throughout Extrem: General: normal to inspection Psych: Mental Status: mental status grossly normal Affect: normal affect Objective Data Vital Signs Vital Signs: Vital Signs - 24 hr 07/24/23 20:30 07/24/23 23:42 07/25/23 09:06 Temperature 97.8 F Pulse Rate 72 70 Respiratory Rate 13 Blood Pressure 113/57 L Pulse Oximetry 94 Oxygen Delivery Room Air 07/25/23 13:52 07/25/23 09:00 Temperature Pulse Rate 79 Respiratory Rate 20 Blood Pressure 121/50 L Pulse Oximetry 93 Oxygen Delivery Room Air Intake/Output Intake/Output: Intake & Output 07/22/23 07/23/23 07/24/23 07/25/23 23:59 23:59 23:59 23:59 Intake Total 560 2224 3096.7 3160 Output Total 750 1100 950 Balance -190 1124 2146.7 3160 Meds/Results Medications: Active Medications Generic Name Dose Route Start Last Admin Trade Name Freq PRN Reason Stop Dose Admin Lipase/Protease/Amylase 6 cap 07/22/23 08:00 07/25/23 12:28 Lipase/Amylase/Protease 12,000 Units Cap PO 6 cap TIDWM RAPHAEL Administration Lipase/Protease/Amylase 3 cap 07/22/23 01:11 Lipase/Amylase/Protease 12,000 Units Cap PO PRN PRN WITH SNACKS Aspirin 81 mg 07/22/23 09:30 07/25/23 09:06 Aspirin 81 Mg Enteric Tablet PO 81 mg QAM RAPHAEL Administration Atorvastatin Calcium 80 mg 07/22/23 09:00 07/25/23 09:06 Atorvastatin 4
--- NOTE | 2023-07-25 18:26 | PC.NURSE ---
On 07/25/23, the BAG ADJUSTER, Puja Domingo, provided care and completed [employer] documentation on this patient. I have reviewed the BAG ADJUSTER's documentation and agree with the findings.
[2023-07-25 20:00] VITALS: PULSE 64; PULSE 74; RESP 20; O2SAT 97
[2023-07-25] MEDS: traZODone HCL 50 MG TABLET 200 MG PO (20:34)
[2023-07-25] MEDS: LORazepam (*CRX) 1 MG TABLET PO (20:39)
[2023-07-25 21:08] LABS: Glucose Point of Care 150 mg/dl (65-105)
[2023-07-25 22:00] VITALS: BP 96/52; PULSE 64; RESP 16; TEMP 36.3; O2SAT 98
[2023-07-26] VITALS: PULSE 61
[2023-07-26 04:00] VITALS: PULSE 66
[2023-07-26] MEDS: MORPHINE SULFATE (*CRX) 2 MG/ML INJ IV PUSH ×2 (04:01→08:39)
[2023-07-26 04:45] VITALS: BP 129/72; PULSE 59; RESP 16; TEMP 36.6; O2SAT 99
[2023-07-26] MEDS: LEVOTHYROXINE SODIUM 75 MCG TABLET 225 MCG PO (06:02)
[2023-07-26 07:02] LABS: Basophils Percent Auto 0.3 % (0.2-1.2); Eosinophils Absolute Auto 0.1 K/mm3 (0-0.3); Eosinophils Percent Auto 1.4 % (0-4.4); Hematocrit 36.5 % (37.0-47.0); Hemoglobin 11.8 g/dL (12.0-15.0); Immature Granulocyte Absolute 0.03 K/mm3 (0.00-0.031); Immature Granulocyte Percent A 0.5 % (0-0.5); Lymphocytes Absolute Auto 1.79 K/mm3 (0.9-3.2); Lymphocytes Percent Auto 30.8 % (18.3-44.2); Mean Corpuscular HGB Conc 32.3 g/dl (32-36); Mean Corpuscular Hemoglobin 28.3 pg (26-34); Mean Corpuscular Volume 87.5 fl (80-100); Mean Platelet Volume 9.8 fl (7.4-10.4); Monocytes Absolute Auto 0.4 K/mm3 (0.1-0.6); Monocytes Percent Auto 6.5 % (2.6-8.5); Neutrophils Absolute Auto 3.5 K/mm3 (1.3-6.7); Neutrophils Percent Auto 60.5 % (45.5-73.1); Platelet Count Result 211 k/mm3 (150-375); Red Blood Count 4.17 M/mm3 (4.2-5.4); Red Cell Distribution Width 13.4 % (11.5-14.5); White Blood Count 5.8 K/mm3 (4.5-10.0)
[2023-07-26 07:13] LABS: Alanine Aminotransferase 20 U/L (6-35); Albumin Level 3.4 g/dL (3.5-5.1); Alkaline Phosphatase 55 U/L (38-126); Amylase 53 U/L (30-110); Anion Gap 4 mmol/L (4-12); Aspartate Amino Transferase 28 U/L (14-36); Bilirubin,Total 0.2 mg/dL (0.2-1.3); Blood Urea Nitrogen 7 mg/dL (7-17); Calcium 8.8 mg/dL (8.4-10.2); Carbon Dioxide 32 mmol/L (22-30); Chloride 104 mmol/L (98-107); Estimated CRCL calculation 107 ml/min; Estimated Glomerular Filt Rate > 60; Glucose 121 mg/dL (65-110); Lipase 31 U/L (23-300); Potassium 3.3 mmol/L (3.4-5.0); Sodium 140 mmol/L (137-145)
[2023-07-26] MEDS: TICAGRELOR 90 MG TABLET PO (08:37)
[2023-07-26] MEDS: CITALOPRAM HYDROBROMIDE 20 MG TABLET 40 MG PO (08:37)
[2023-07-26] MEDS: MAGNESIUM OXIDE 400 MG TABLET PO (08:37)
[2023-07-26] MEDS: LIPASE/AMYLASE/PROTEASE 12,000 UNITS CAP 6 CAP PO ×2 (08:37→12:48)
[2023-07-26] MEDS: buPROPion HCL SR (12 HR) 150 MG TAB PO (08:37)
[2023-07-26] MEDS: FENOFIBRATE NANOCRYSTALLIZED 145 MG TABLET PO (08:37)
[2023-07-26] MEDS: ATORVASTATIN 40 MG TABLET 80 MG PO (08:37)
[2023-07-26] MEDS: METOPROLOL SUCCINATE EXT REL 25 MG TABCR PO (08:37)
[2023-07-26] MEDS: LOSARTAN POTASSIUM 25 MG TABLET PO (08:37)
[2023-07-26] MEDS: PANTOPRAZOLE SODIUM IV 40 MG VIAL IV PUSH (08:39)
[2023-07-26] MEDS: ONDANSETRON INJ 4 MG/2 ML VIAL IV PUSH (08:39)
[2023-07-26] MEDS: ASPIRIN 81 MG ENTERIC TABLET PO (08:44)
[2023-07-26] MEDS: INSULIN GLARGINE (*BKC) 100 UNITS/ML 34 UNITS SUB-Q (08:44)
[2023-07-26 08:46] LABS: Glucose Point of Care 117 mg/dl (65-105)
[2023-07-26 11:16] LABS: Glucose Point of Care 139 mg/dl (65-105)
--- NOTE | 2023-07-26 16:24 | PM.DS ---
DS: Admitting Diagnosis Discharge Date 07/26/23 Admitting Diagnosis chest pain, melena DS: Discharge Diagnosis Discharge Diagnosis (1) Melena: Code(s): K92.1 - Melena Status: Resolved (2) Chest pain: Qualifiers: Chest pain type: unspecified Qualified Code(s): R07.9 - Chest pain, unspecified Code(s): R07.9 - Chest pain, unspecified Status: Resolved Assessment and Plan: EKG with no acute changes Sinus rhythm with a rate of 82 with minimal Q-waves in inferior leads Troponin negative x3 EKG showed no changes, SR CT negative for acute process and PE (3) Hypertriglyceridemia: Code(s): E78.1 - Pure hyperglyceridemia Status: Chronic Assessment and Plan: continue fenofibrate Triglycerides 319 port flushed by pheresis nurse on 07/23 (4) Chronic pancreatitis: Qualifiers: Pancreatitis type: other Qualified Code(s): K86.1 - Other chronic pancreatitis Code(s): K86.1 - Other chronic pancreatitis Status: Chronic (5) Tobacco use: Code(s): Z72.0 - Tobacco use Status: Chronic (6) Insulin dependent diabetes mellitus: Status: Chronic (7) CAD (coronary artery disease): Code(s): I25.10 - Atherosclerotic heart disease of [place] coronary artery without angina pectoris Status: Chronic Assessment and Plan: Known CAD with recent [place] status post PCI with 2 stents placed Restarted home medications of aspirin, Lipitor, losartan, metoprolol, Brilinta cardiac rehab at discharge DS: Summary Hospital Course Hospital Course: Patient is a 47-year-old female with PMH of hypertriglyceridemia, chronic pancreatitis, coronary artery disease, [place], status post PTCI. She was admitted after having 1 week diarrhea, nausea, vomiting diarrhea with melena. Denied any bright red blood per rectum, no coffee-ground emesis, no hematemesis. Patient was started on Brilinta. Preliminary workup was positive for Hemoccult. GI was consulted for possible GI bleed, a EGD was performed and was normal. Her triglycerides were monitored, as well as lipase and amylase which continued to trend down. Her pheresis nurse came to the hospital on 07/23 to flush her port. She did not require a pheresis while in patient. Complete work up done for intermittent reports of chest pain. Discussed with patient that her work up was negative, and she endorses anxiety. Discussed in depth evaluation for chest pain, anxiety management and to follow up with her specialists including alyssa. She is stable and ready for d/c home. Status at Discharge Functional status at discharge: independent ambulation Overall status at discharge: patient is back to baseline Time Spent with Patient Time attestation: Total time spent providing and/or coordinating discharge services: Exam Narrative: General: well appearing, well developed, well nourished, appears stated age. HEENT: normocephalic, atraumatic. Mucous membranes moist. EOMI, PERRLA Respiratory: clear to auscultation bilaterally. Cardiovascular: RRR, normal S1-S2 upon auscultation. Abdomen: Soft, round, non-distended with mild left upper quadrant to midepigastric tenderness. Bowel sounds present to all four quadrants. Extremities: No cyanosis, clubbing, or edema present. Pulses are palpable 2/2. Active ROM to all four extremities. Neuro: Alert and orientated x 3. Cranial nerves 2-12 intact without focal deficit. Skin: Warm, dry, and intact, without rash, erythema, or lesion. Psych: pleasant, cooperative, normal speech, normal affect, no hallucinations, no dysarthria DS: Data Data Completed and Pending Labs on day of discharge: Labs from last 24 hours 07/26/23 07/26/23 07/26/23 11:14 08:13 06:13 WBC 5.8 RBC 4.17 L Hgb 11.8 L Hct 36.5 L MCV 87.5 MCH 28.3 MCHC 32.3 RDW 13.4 Plt Count 211 MPV 9.8 Immature Gran % (Auto) 0.5 Neut % (Auto) 60.5 Lymph % (Aut
== END 2023-07-26 13:23 | disposition home or self-care (01) | DRG 377 ==
LOC: ANHED 21:42 → ANHIMU 21:45 → ANH3MEDSUR 07-23 22:17
PROVIDERS: Internal Medicine Gastroenterology; Nurse Practitioner Acute Care; Pediatrics; Admitting Provider Internal Medicine; Emergency Provider Physician Assistant; PCP Physician Assistant; Visit Provider Nurse Practitioner
PROC: 0DJ08ZZ Inspection of Upper Intestinal Tract, Via Natural or Artificial Opening Endoscopic (ICD-10-PCS; CPT 43235; principal; 2023-07-22 16:00)
DX: K92.1 Melena (principal); I21.9 Acute myocardial infarction, unspecified; K86.1 Other chronic pancreatitis; E78.1 Pure hyperglyceridemia; E03.9 Hypothyroidism, unspecified; E78.5 Hyperlipidemia, unspecified; E11.9 Type 2 diabetes mellitus without complications; F41.9 Anxiety disorder, unspecified; F17.210 Nicotine dependence, cigarettes, uncomplicated; I25.10 Atherosclerotic heart disease of native coronary artery without angina pectoris; K21.9 Gastro-esophageal reflux disease without esophagitis; Z95.5 Presence of coronary angioplasty implant and graft; Z90.49 Acquired absence of other specified parts of digestive tract; Z79.82 Long term (current) use of aspirin; Z79.4 Long term (current) use of insulin; Z79.02 Long term (current) use of antithrombotics/antiplatelets; Z90.710 Acquired absence of both cervix and uterus
CPT/HCPCS: 36415; 71046; 71275; 74177; 80048; 80053; 82150; 82948; 83690; 83735; 84478; 84484; 85014; 85018; 85025; 85027; 85380; 85610; 85730; 86140; 86850; 86900; 86901; 93005; 96361; 96374; 96375; 96376; 99285; A9270; C9113; G0378; J1644; J1815; J2270; J2405; J2704; J7030; J7040; J7120; Q9967

== ENCOUNTER 2023-08-27 09:14 | Outpatient (CLI) | payer MEDICARE, SELFPAY ==
[2023-08-27 10:17] LABS: Triglycerides > 2625 mg/dL (<150)
== END 2023-08-27 09:15 | disposition home or self-care (01) ==
LOC: ANHLAB 09:16
PROVIDERS: PCP Physician Assistant; Visit Provider Physician Assistant
DX: E78.1 Pure hyperglyceridemia (principal); E78.3 Hyperchylomicronemia; K86.1 Other chronic pancreatitis
CPT/HCPCS: 36415; 84478

== ENCOUNTER 2023-08-30 22:06 | Inpatient (IN) | payer MEDICARE, SELFPAY ==
--- NOTE | ~2023-08-30 | XR_ITS ---
EXAMINATION: XR chest 2V DATE: 08/30/2023 22:24 INDICATION: Chest pain. TECHNIQUE: Frontal and lateral views of the chest were obtained. COMPARISON: Chest 2 view 07/21/2023 FINDINGS: There is no pneumonia, pleural effusion, or pneumothorax. The heart size is normal. There i s a right internal jugular port with tip in proximal right atrium. There is a left internal jugular p ort with tip in proximal right atrium. IMPRESSION: 1. No acute cardiopulmonary disease. Reviewed, dictated and finalized at location E.
--- NOTE | ~2023-08-30 | US_ITS ---
EXAMINATION: US carotid duplex BI DATE: 09/02/2023 13:19 INDICATION: Syncope. TECHNIQUE: Grayscale, color Doppler, and pulsed Doppler images of the cervical carotid arteries were obtained. The degree of vessel stenosis is placed in one of the following categories: normal, <50%, 5 0-69%, >=70% but less than near-occlusion, near-occlusion, or total occlusion. Note that percent sten osis relative to normal distal artery lumen diameter is indirectly measured from velocity measurement s as described by Darin, et al. Radiology 2003; 229:340-346. COMPARISON: None. FINDINGS: RIGHT: The right common carotid artery (CCA) peak systolic velocity (PSV) is 77 cm/s. The right internal car otid artery (ICA) PSV is 78 cm/s. The right ICA end-diastolic velocity (EDV) is 35 cm/s. The right IC A/CCA PSV ratio is 1.0. Grayscale and color Doppler images yield an estimate of <50% diameter reducti on from plaque in the ICA. There is antegrade flow in the right vertebral artery. LEFT: The left CCA PSV is 75 cm/s. The left ICA PSV is 64 cm/s. The left ICA EDV is 23 cm/s. The left ICA/C CA PSV ratio is 0.9. Grayscale and color Doppler images yield an estimate of <50% diameter reduction from plaque in the ICA. There is antegrade flow in the left vertebral artery. IMPRESSION: 1. <50% stenosis in the right internal carotid artery. 2. <50% stenosis in the left internal carotid artery. Reviewed, dictated and finalized at location A.
[2023-08-30 22:05] VITALS: BP 118/82; PULSE 103; RESP 17; TEMP 36.4; O2SAT 97
--- NOTE | 2023-08-30 22:09 | ECG_ITS ---
SEE SCANNED COPY FOR CONFIRMED REPORT MTDD
[2023-08-30 22:21] LABS: Basophils Percent Auto 0.3 % (0.2-1.2); Eosinophils Absolute Auto 0.1 K/mm3 (0-0.3); Eosinophils Percent Auto 0.5 % (0-4.4); Hematocrit 38.4 % (37.0-47.0); Hemoglobin 12.9 g/dL (12.0-15.0); Immature Granulocyte Percent A 0.9 % (0-0.5); Lymphocytes Absolute Auto 3.26 K/mm3 (0.9-3.2); Lymphocytes Percent Auto 28.4 % (18.3-44.2); Mean Corpuscular HGB Conc 33.6 g/dl (32-36); Mean Corpuscular Hemoglobin 28.8 pg (26-34); Mean Corpuscular Volume 85.7 fl (80-100); Mean Platelet Volume 9.6 fl (7.4-10.4); Monocytes Absolute Auto 0.5 K/mm3 (0.1-0.6); Monocytes Percent Auto 4.6 % (2.6-8.5); Neutrophils Absolute Auto 7.5 K/mm3 (1.3-6.7); Neutrophils Percent Auto 65.3 % (45.5-73.1); Platelet Count Result 277 k/mm3 (150-375); Red Blood Count 4.48 M/mm3 (4.2-5.4); Red Cell Distribution Width 15.3 % (11.5-14.5); White Blood Count 11.5 K/mm3 (4.5-10.0)
[2023-08-30 22:30] LABS: INR 0.8; Partial Thromboplastin Time 31.4 Seconds (22.3-36.8); Prothrombin Time 11.8 Seconds (11.1-14.7)
[2023-08-30] MEDS: HYDROmorphone HCL INJ (*CRX) 1 MG/ML SYR IV PUSH (22:39)
[2023-08-30] MEDS: SODIUM CHLORIDE 0.9% IV 1,000 ML 999 ML IV CONT (22:40)
[2023-08-30] MEDS: ONDANSETRON INJ 4 MG/2 ML VIAL IV PUSH (22:40)
[2023-08-30 22:43] LABS: Troponin I < 0.012 ng/mL (0.000-0.034)
[2023-08-30 23:10] LABS: Alanine Aminotransferase 23 U/L (6-35); Albumin Level 4.6 g/dL (3.5-5.1); Alkaline Phosphatase 60 U/L (38-126); Anion Gap 11 mmol/L (4-12); Aspartate Amino Transferase 30 U/L (14-36); Bilirubin,Total 0.6 mg/dL (0.2-1.3); Blood Urea Nitrogen 16 mg/dL (7-17); Calcium 9.3 mg/dL (8.4-10.2); Carbon Dioxide 21 mmol/L (22-30); Chloride 103 mmol/L (98-107); Estimated CRCL calculation 69 ml/min; Estimated Glomerular Filt Rate 59; Glucose 284 mg/dL (65-110); Lipase 121 U/L (23-300); Potassium 4.9 mmol/L (3.4-5.0); Sodium 135 mmol/L (137-145)
[2023-08-30 23:38] LABS: Triglycerides 1363 mg/dL (<150)
[2023-08-31] VITALS (13 sets, daily range): BP systolic 102–133; BP diastolic 53–78; PULSE 75–91; RESP 12–17; TEMP 36.1–36.8; O2SAT 93–97; BMI 31.7
--- NOTE | 2023-08-31 00:26 | ED.GENADULT ---
HPI - General Adult General Chief complaint: Chest Pain Stated complaint: chest pain Time Seen by Provider: 08/30/23 22:18 History of Present Illness HPI narrative: patient 47-year-old female who presents emergency department with chief complaint of chest pain the patient reports that she has prior history of stents replaced in June the patient also reports that she has had discomfort in her epigastrium similar to whenever she has had chronic pancreatitis before in the past patient has history of Trey 0 micro knee Jaelyn syndrome and has issues with hypertriglyceridemia. The patient states that she has had plasmapheresis and also has been treated before with insulin drips to bring her triglycerides down. The patient reports her pain now currently feels similar to whenever she has had pancreatitis Related Data Home Medications Medication Instructions Recorded Confirmed insulin degludec 200 unit/mL (3 34 unit subcut DAILY 04/06/23 08/22/23 mL) subcutaneous pen (Tresiba FlexTouch U-200 insulin) atorvastatin 40 mg tablet 80 mg PO DAILY 07/21/23 08/22/23 hydrocodone 5 mg-acetaminophen 325 1 tablet PO Q12H PRN pain 7-10 07/21/23 08/22/23 mg tablet levothyroxine 200 mcg tablet 225 mcg PO DAILY 07/21/23 08/22/23 losartan 25 mg tablet 25 mg PO DAILY 07/21/23 08/22/23 metoprolol succinate 25 mg 25 mg PO DAILY 07/21/23 08/22/23 tablet,extended release 24 hr ticagrelor 90 mg tablet (Brilinta) 90 mg PO BID 07/21/23 08/22/23 arbbya-[id number] 2 cap PO TIDWMEAL 07/22/23 08/22/23 36,000-114,000-180,000 unit capsule,delay rel (Creon) Allergies Allergy/AdvReac Type Severity Reaction Status Date / Time adhesive tape Allergy Mild Rash Verified 08/22/23 08:38 [place] pepper [green pepper] Allergy Unknown unknown Verified 08/22/23 08:38 sucralose Allergy Migraine Verified 08/22/23 08:38 [From Splenda (sucralose)] Artificial Sweetners AdvReac Migraine Uncoded 08/22/23 08:38 Review of Systems Review of Systems: A 10 system review of systems was completed on the patient and is negative except for what is stated in the HPI. Nursing and ancillary documentation was reviewed. 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 Nausea Occult blood in stools PCOS (polycystic ovarian syndrome) Port-A-Cath in place Thyroid disorder Surgical History Surgical History History of appendectomy History of conization of cervix History of dilatation and curettage History of endometrial ablation History of exploratory laparotomy History of loop electrical excision procedure (LEEP) History of partial hysterectomy History of tonsillectomy History of tubal ligation History of wisdom tooth extraction Family History Family History Father Alcohol abuse Hypertension Mother Hypothyroid Cerebrovascular accident Grandparent Skin cancer Colon cancer Heart disease Hypothyroid Cerebrovascular accident Sibling Hypothyroid Kidney disorder Hypertension Autoimmune disorder Social History Social History Social History: She smokes a pack a day for the past 30 years. No alcohol or drug use. She has 2 dogs and a cat at home. Surrogate medical decision maker: José Miguel Jones, spouse. Code status: Full Smoking packs per day: 0.5 Smoking cigarettes per day: 10.0 Years smoked: 30 Smoking pack-years: 15
[2023-08-31] MEDS: HYDROmorphone HCL INJ (*CRX) 1 MG/ML SYR IV PUSH ×7 (00:39→23:38)
--- NOTE | 2023-08-31 00:41 | PM.IMHP ---
H&P: HPI History of Present Illness Date/Time: 08/31/23 00:41 Chief Complaint: abdominal pain Narrative: This is a 47-year-old female with past medical history significant for hypertriglyceridemia, chronic pancreatitis, GERD, type diabetes mellitus insulin-dependent, polycystic ovarian syndrome. patient presents to the emergency room due to epigastric pain and precordial chest pain. patient denies any nausea, vomiting, diarrhea, night sweats, fevers, chills, rigors, cough, sputum production. EXAMINATION: XR chest 2V DATE: 08/30/2023 22:24 INDICATION: Chest pain. TECHNIQUE: Frontal and lateral views of the chest were obtained. COMPARISON: Chest 2 view 07/21/2023 FINDINGS: There is no pneumonia, pleural effusion, or pneumothorax. The heart size is normal. There is a right internal jugular port with tip in proximal right atrium. There is a left internal jugular port with tip in proximal right atrium. IMPRESSION: 1. No acute cardiopulmonary disease. Review of Systems Review of Systems: epigastric pain, chest pain Constitutional: Constitutional: Denies chills and Denies fever(s) Eyes: Eyes: Denies change in vision ENT: Denies dysphagia and Denies odynophagia Cardiovascular: Cardiovascular: Reports chest pain, Denies leg edema, Denies radiating jaw, neck or arm pain and Denies palpitations Respiratory: Respiratory: Denies dyspnea Gastrointestinal: Gastrointestinal: Reports abdominal pain, Denies nausea and Denies vomiting Genitourinary: Genitourinary: Denies dysuria Musculoskeletal: Musculoskeletal: Denies arthralgias Integumentary/Breasts: Skin/Breast: Denies rash Neurologic: Denies focal weakness and Denies Sensory deficit (Neuro) Psychiatric: Psychiatric: Reports no additional psychiatric complaints and Reports as per HPI Endocrine: Endocrine: Denies cold intolerance, Denies heat intolerance, Denies polyphagia, Denies polydipsia, Denies polyuria, Denies palpitations and Reports other ( hyper triglyceride) Hematologic/Lymphatic: Hematologic/Lymphatic: Reports no additional hematologic/lymphatic complaints and Reports as per HPI Allergic/Immunologic: Allergic/Immunologic: Reports no additional allergic/immunologic complaints and Reports as per HPI [facility] Past Medical History Medical History Abnormal CT scan, esophagus Allergic rhinitis Anxiety Chronic pancreatitis Chylomicronemia syndrome Colon cancer screening GERD (gastroesophageal reflux disease) Headache Hx of 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 use of blood thinners Hyperlipemia Hypertriglyceridemia Hypertriglyceridemia 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 Nausea Occult blood in stools PCOS (polycystic ovarian syndrome) Port-A-Cath in place Thyroid disorder Surgical History Surgical History History of appendectomy History of conization of cervix History of dilatation and curettage History of endometrial ablation History of exploratory laparotomy History of loop electrical excision procedure (LEEP) History of partial hysterectomy History of tonsillectomy History of tubal ligation History of wisdom tooth extraction Family History Family History Father Alcohol abuse Hypertension Mother Hypothyroid Cerebrovascular accident Grandparent Skin cancer Colon cancer Heart disease Hypothyroid Cerebrovascular accident Sibling Hypothyroid Kidney disorder Hypertension Autoimmune disorder Social History Social History Social History: She smokes a pack a day for the past 30 years. No alcohol or drug use. She has 2 dogs and a cat at home. Surrogate medical decision maker: José Miguel Adamsder, spouse. Code status: Full Smoking packs pe
--- NOTE | 2023-08-31 01:22 | ECG_ITS ---
SEE SCANNED COPY FOR CONFIRMED REPORT MTDD
--- NOTE | 2023-08-31 01:39 | ADMGEN ---
This patient, Casandra Jones, was admitted to IMU Room 206-02 on 08/31/23 at 0128. Patient/family oriented to hospital policies and general routines including ID bracelet, bed and alarms, visiting hours, pain management, procedures, bathroom and other care routines, personal items, smoking policy, room service/diet, and visiting hours. Information on how to activate the Rapid Response Team has been discussed. Patient/Family are encouraged to report perceived risks to care and to ask questions if they do not understand what they are told or what they should do.
[2023-08-31 01:46] LABS: Troponin I < 0.012 ng/mL (0.000-0.034)
[2023-08-31] MEDS: SODIUM CHLORIDE 0.9% IV 1,000 ML 125 ML IV CONT (02:33)
[2023-08-31] MEDS: diphenhydrAMINE HCl INJ 50 MG/ML VIAL IV PUSH (03:32)
[2023-08-31] MEDS: LORazepam (*CRX) 1 MG TABLET PO ×2 (04:50→21:15)
[2023-08-31 05:02] LABS: Troponin I < 0.012 ng/mL (0.000-0.034)
[2023-08-31] MEDS: LEVOTHYROXINE SODIUM 100 MCG TABLET 200 MCG PO (06:04)
[2023-08-31 08:49] LABS: Glucose Point of Care 232 mg/dl (65-105)
[2023-08-31] MEDS: FENOFIBRATE NANOCRYSTALLIZED 145 MG TABLET PO (08:49)
[2023-08-31] MEDS: TICAGRELOR 90 MG TABLET PO ×2 (08:49→21:13)
[2023-08-31] MEDS: INSULIN ASPART (*BKC) 100 UNITS/ML 10 UNITS SUB-Q ×2 (08:49→17:20)
[2023-08-31] MEDS: LIPASE/AMYLASE/PROTEASE 12,000 UNITS CAP 6 CAP PO ×3 (08:49→17:20)
[2023-08-31] MEDS: ASPIRIN 81 MG ENTERIC TABLET PO (08:49)
[2023-08-31] MEDS: buPROPion HCL SR (12 HR) 150 MG TAB PO (08:49)
[2023-08-31] MEDS: METOPROLOL SUCCINATE EXT REL 25 MG TABCR PO (08:49)
[2023-08-31] MEDS: PANTOPRAZOLE 40 MG TABLET PO ×2 (08:49→17:20)
[2023-08-31] MEDS: LOSARTAN POTASSIUM 25 MG TABLET PO (08:49)
[2023-08-31] MEDS: INSULIN ASPART (*BKC) 100 UNITS/ML SUB-Q ×2 (08:50→17:20)
--- NOTE | 2023-08-31 10:12 | PM.IMPN ---
Progress Note: A&P Assessment and Plan (1) Chronic pancreatitis: Code(s): K86.1 - Other chronic pancreatitis Status: Acute Assessment and Plan: Improving Continue clear liquids with carbohydrate and fat restriction Follow-up labs (2) Type 2 diabetes mellitus: Qualifiers: Diabetes mellitus 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 insulin use: with 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 use Diabetes mellitus complication status: without complication Qualified Code(s): E11.9 - Type 2 diabetes mellitus without complications; Z79.4 - detention (current) use of insulin Code(s): E11.9 - Type 2 diabetes mellitus without complications Status: Acute Assessment and Plan: 08/30 FBS down to 232 Goal is 140 or less Continue to monitor with basal pre meal and sliding scale insulin (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 Status: Acute Assessment and Plan: Regular strides 1363 upon admission Consider insulin drip if not improving with dietary restriction and more intensive insulin therapy (4) CAD (coronary artery disease): Code(s): I25.10 - Atherosclerotic heart disease of [place] coronary artery without angina pectoris Status: Chronic Assessment and Plan: Currently without symptoms Continue home medications (5) GERD (gastroesophageal reflux disease): Qualifiers: Esophagitis presence: esophagitis presence not specified Qualified Code(s): K21.9 - Gastro-esophageal reflux disease without esophagitis Code(s): K21.9 - Gastro-esophageal reflux disease without esophagitis Status: Acute Assessment and Plan: Continue home regimen (6) Chest pain: Code(s): R07.9 - Chest pain, unspecified Status: Acute Assessment and Plan: Resolved Related to acute on chronic pancreatitis Subjective Date/time seen: 08/31/23 10:12 Interval history: Pain is no longer and chest but has localized to epigastrium to left upper quadrant. -12/06. Aching. Similar to her usual chronic pancreatitis. Tolerated a popsicle this morning. Was having increased aching in her upper abdomen to chest 4-5 days ago. Had plasmapheresis 3 days ago to lower triglycerides. Blood sugars have not been well controlled which is her norm. Some nausea but no emesis. No chest pain. No shortness of breath. No swelling. No bleeding. Review of Systems Review of Systems: All systems reviewed & are unremarkable except as noted in HPI and below Exam Narrative: HEENT: PERRL, sclerae nonicteric, pharyngeal mucosa pink and intact NECK: No JVD CHEST: Clear to auscultation. Normal effort. HEART: NL S1/S2, regular, no murmur ABDOMEN: BS+, soft, tender to moderate palpation epigastric to left upper quad, without mass, no guarding or rebound. EXTREMITIES: No cyanosis, edema, or clubbing NEUROLOGIC: CN intact and symmetric to inspection. MUSCULOSKELETAL: Tone and strength symmetric. PSYCH: Alert. Oriented to person, place, and time. Objective Data Vital Signs Vital Signs: Vital Signs - 24 hr 08/30/23 22:05 08/31/23 01:36 08/31/23 01:40 Temperature 97.6 F 97.5 F L Pulse Rate 103 H 91 91 Respiratory Rate 17 16 16 Blood Pressure 118/82 133/68 Pulse Oximetry 97 96 96 Oxygen Delivery Room Air Room Air 08/31/23 04:00 08/31/23 01:41 08/31/23 04:00 Temperature 97 F L Pulse Rate 86 83 84 Respiratory Rate 15 Blood Pressure 102/54 L Pulse Oximetry 93 Oxygen Delivery 08/31/23 04:00 08/31/23 05:46 08/31/23 07:39 Temperature 98.0 F Pulse Rate 86 78 76 Respiratory Rate 15 17 Blood Pressure 112/58 L Pulse Oximetry 93 95 Oxygen Delivery Room Air 08/31/23 08:49 Temperature Pulse Rate 80 Respiratory Rate Blood Pressure Pulse Oximetry Oxygen Delivery Intake/Output Intake/Output: Intake & Output 08/28/23 08/29/23 08/30/23 08/31/23 23:59 23:59 23:59 23:59 Intake Total 1125 Balance 1125 Meds/Results M
[2023-08-31] MEDS: oxyCODONE HCL (*CRX) 5 MG TAB IR PO ×2 (10:26→21:38)
[2023-08-31] MEDS: diphenhydrAMINE HCl CAP 25 MG CAPSULE PO ×3 (10:26→22:50)
--- NOTE | 2023-08-31 11:25 | PC.NURSE ---
Addendum entered by Puja Kahn RN 08/31/23 11:27: called and notified of new room number. Original Note: This patient, Casandra Jones, was transferred to [facility] on 08/31/23 at 1125. Personal belongings sent with patient. Report given to Wendie OLGUIN. Appropriate documentation sent with patient.
--- NOTE | 2023-08-31 11:43 | PC.NURSE ---
This patient, Casandra Jones, was received from IMU on 08/31/23 at 1143. Report received from Tristan OLGUIN. Patient/family oriented to unit policies and routines
[2023-08-31 12:05] LABS: Glucose Point of Care 72 mg/dl (65-105)
[2023-08-31] MEDS: SODIUM CHLORIDE 0.9% IV 1,000 ML 90 ML IV CONT ×2 (12:26→23:40)
[2023-08-31 17:09] LABS: Glucose Point of Care 178 mg/dl (65-105)
[2023-08-31] MEDS: ATORVASTATIN 40 MG TABLET 80 MG PO (21:12)
[2023-08-31] MEDS: CITALOPRAM HYDROBROMIDE 20 MG TABLET 40 MG PO (21:13)
[2023-08-31] MEDS: traZODone HCL 50 MG TABLET 200 MG PO (21:13)
[2023-08-31 21:23] LABS: Glucose Point of Care 70 mg/dl (65-105)
[2023-08-31 22:24] LABS: Glucose Point of Care 111 mg/dl (65-105)
--- NOTE | 2023-08-31 23:06 | PC.NURSE ---
08/31/232108: PT GLUCOSE 70MG/DL ADDRESSED WITH MICHELLE TSE; HS SEDRICK HELD. PT GIVEN APPLE JUICE. D/W MICHELLE RECHECKING ACCUCHECK AFTER JUICE AND IF NO IMPROVEMENT IN VALUE WILL CALL BACK FOR FURTHER CARE ORDERS. SHE STATES THIS IS OK. 08/31/232219: GLUCOSE TRENDING UP PER PT CGM AND SERUM ACCUCHECK 111MG/DL.
[2023-09-01] VITALS (9 sets, daily range): BP systolic 92–124; BP diastolic 46–71; PULSE 66–76; RESP 12–16; TEMP 36.2–36.7; O2SAT 90–98
[2023-09-01] MEDS: HYDROmorphone HCL INJ (*CRX) 1 MG/ML SYR IV PUSH ×6 (03:24→23:21)
[2023-09-01 04:25] LABS: Hematocrit 37.5 % (37.0-47.0); Hemoglobin 11.8 g/dL (12.0-15.0); Mean Corpuscular HGB Conc 31.5 g/dl (32-36); Mean Corpuscular Hemoglobin 27.8 pg (26-34); Mean Corpuscular Volume 88.2 fl (80-100); Mean Platelet Volume 9.1 fl (7.4-10.4); Platelet Count Result 190 k/mm3 (150-375); Red Blood Count 4.25 M/mm3 (4.2-5.4); White Blood Count 6.6 K/mm3 (4.5-10.0)
[2023-09-01 04:33] LABS: Hemoglobin A1C 9.4 % (<5.7)
[2023-09-01 04:40] LABS: Alanine Aminotransferase 23 U/L (6-35); Albumin Level 3.9 g/dL (3.5-5.1); Alkaline Phosphatase 52 U/L (38-126); Anion Gap 3 mmol/L (4-12); Aspartate Amino Transferase 27 U/L (14-36); Bilirubin,Total 0.4 mg/dL (0.2-1.3); Blood Urea Nitrogen 10 mg/dL (7-17); Calcium 8.2 mg/dL (8.4-10.2); Carbon Dioxide 27 mmol/L (22-30); Chloride 106 mmol/L (98-107); Estimated CRCL calculation 126 ml/min; Estimated Glomerular Filt Rate > 60; Glucose 150 mg/dL (65-110); Lipase 71 U/L (23-300); Potassium 4.3 mmol/L (3.4-5.0); Sodium 136 mmol/L (137-145)
[2023-09-01 04:53] LABS: Triglycerides 720 mg/dL (<150)
[2023-09-01] MEDS: LEVOTHYROXINE SODIUM 100 MCG TABLET 200 MCG PO (05:33)
[2023-09-01] MEDS: diphenhydrAMINE HCl CAP 25 MG CAPSULE PO ×2 (05:34→12:21)
[2023-09-01 07:55] LABS: Glucose Point of Care 167 mg/dl (65-105)
--- NOTE | 2023-09-01 08:34 | PM.IMPN ---
Progress Note: A&P Assessment and Plan (1) Chronic pancreatitis: Code(s): K86.1 - Other chronic pancreatitis Status: Acute Assessment and Plan: Improving Continue clear liquids with carbohydrate and fat restriction Follow-up labs and pain (2) Type 2 diabetes mellitus: Qualifiers: Diabetes mellitus group home insulin use: with group home use Diabetes mellitus complication status: without complication Qualified Code(s): E11.9 - Type 2 diabetes mellitus without complications; Z79.4 - intermediate (current) use of insulin Code(s): E11.9 - Type 2 diabetes mellitus without complications Status: Acute Assessment and Plan: 08/30 FBS down to 232, 08/31 111 Continue to monitor with basal pre meal and sliding scale insulin (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 Status: Acute Assessment and Plan: Trigs 1363 08/29, 08/31 720 (4) CAD (coronary artery disease): Code(s): I25.10 - Atherosclerotic heart disease of [place] coronary artery without angina pectoris Status: Chronic Assessment and Plan: Currently without symptoms Continue home medications (5) GERD (gastroesophageal reflux disease): Qualifiers: Esophagitis presence: esophagitis presence not specified Qualified Code(s): K21.9 - Gastro-esophageal reflux disease without esophagitis Code(s): K21.9 - Gastro-esophageal reflux disease without esophagitis Status: Acute Assessment and Plan: Continue home regimen (6) Chest pain: Code(s): R07.9 - Chest pain, unspecified Status: Acute Assessment and Plan: Resolved Related to acute on chronic pancreatitis Subjective Date/time seen: 09/01/23 08:34 Interval history: Pain is no longer and chest but has localized to epigastrium to left upper quadrant with some radiation to the left shoulder, 7-8/10. Aching. Similar to her usual chronic pancreatitis. Tolerated a popsicle this morning. Was having increased aching in her upper abdomen to chest 4-5 days FLOOR MOLDER. Had plasmapheresis 3 days FLOOR MOLDER to lower triglycerides. Blood sugars have not been well controlled which is her norm. Some nausea but no emesis. No chest pain. No shortness of breath. No swelling. No bleeding. Review of Systems Review of Systems: All systems reviewed & are unremarkable except as noted in HPI and below Exam Narrative: HEENT: PERRL, sclerae nonicteric, pharyngeal mucosa pink and intact NECK: No JVD CHEST: Clear to auscultation. Normal effort. HEART: NL S1/S2, regular, no murmur ABDOMEN: BS+, soft, tender to moderate palpation epigastric to left upper quad, without mass, no guarding or rebound. EXTREMITIES: No cyanosis, edema, or clubbing NEUROLOGIC: CN intact and symmetric to inspection. MUSCULOSKELETAL: Tone and strength symmetric. PSYCH: Alert. Oriented to person, place, and time. Objective Data Vital Signs Vital Signs: Vital Signs - 24 hr 08/31/23 08:49 08/31/23 10:00 08/31/23 11:38 Temperature 98.2 F Pulse Rate 80 78 75 Respiratory Rate 16 Blood Pressure 125/68 Pulse Oximetry 94 08/31/23 14:32 08/31/23 17:19 08/31/23 20:00 Temperature 98.2 F 97.2 F L 97.6 F Pulse Rate 75 75 77 Respiratory Rate 12 16 16 Blood Pressure 110/78 110/60 108/53 L Pulse Oximetry 94 95 97 09/01/23 00:55 09/01/23 05:00 09/01/23 08:00 Temperature 97.8 F 97.2 F L 97.6 F Pulse Rate 69 66 67 Respiratory Rate 16 16 12 Blood Pressure 92/56 L 119/46 L 113/67 Pulse Oximetry 90 98 97 Intake/Output Intake/Output: Intake & Output 08/29/23 08/30/23 08/31/23 09/01/23 23:59 23:59 23:59 23:59 Intake Total 3245 250 Balance 3245 250 Meds/Results Medications: Active Medications Generic Name Dose Route Start Last Admin Trade Name Freq PRN Reason Stop Dose Admin Lipase/Protease/Amylase 6 cap 08/31/23 08:00 08/31/23 17:20 Lipase/Amylase/Protease 12,000 Units Cap PO
[2023-09-01] MEDS: ASPIRIN 81 MG ENTERIC TABLET PO (10:28)
[2023-09-01] MEDS: LOSARTAN POTASSIUM 25 MG TABLET PO (10:28)
[2023-09-01] MEDS: SODIUM CHLORIDE 0.9% IV 1,000 ML 90 ML IV CONT ×2 (10:28→21:54)
[2023-09-01] MEDS: PANTOPRAZOLE 40 MG TABLET PO ×2 (10:28→18:06)
[2023-09-01] MEDS: TICAGRELOR 90 MG TABLET PO ×2 (10:28→20:40)
[2023-09-01] MEDS: FENOFIBRATE NANOCRYSTALLIZED 145 MG TABLET PO (10:28)
[2023-09-01] MEDS: LIPASE/AMYLASE/PROTEASE 12,000 UNITS CAP 6 CAP PO ×3 (10:28→18:06)
[2023-09-01] MEDS: buPROPion HCL SR (12 HR) 150 MG TAB PO (10:28)
[2023-09-01] MEDS: METOPROLOL SUCCINATE EXT REL 25 MG TABCR PO (10:28)
[2023-09-01 10:29] LABS: Glucose Point of Care 161 mg/dl (65-105)
[2023-09-01] MEDS: INSULIN ASPART (*BKC) 100 UNITS/ML SUB-Q ×2 (10:33→12:21)
[2023-09-01 12:08] LABS: Glucose Point of Care 247 mg/dl (65-105)
[2023-09-01] MEDS: ONDANSETRON INJ 4 MG/2 ML VIAL IV PUSH (12:21)
[2023-09-01] MEDS: oxyCODONE HCL (*CRX) 5 MG TAB IR PO ×2 (12:33→20:41)
[2023-09-01] MEDS: TRIAMCINOLONE ACET 0.1% CREAM 15 GM TUBE 1 APPLIC TOPICAL (14:31)
[2023-09-01 16:17] LABS: Glucose Point of Care 90 mg/dl (65-105)
[2023-09-01] MEDS: diphenhydrAMINE HCl CAP 25 MG CAPSULE 50 MG PO (18:53)
[2023-09-01] MEDS: CITALOPRAM HYDROBROMIDE 20 MG TABLET 40 MG PO (20:40)
[2023-09-01] MEDS: traZODone HCL 50 MG TABLET 200 MG PO (20:40)
[2023-09-01] MEDS: ATORVASTATIN 40 MG TABLET 80 MG PO (20:40)
[2023-09-01] MEDS: INSULIN GLARGINE (*BKC) 100 UNITS/ML 34 UNITS SUB-Q (20:41)
[2023-09-01] MEDS: LORazepam (*CRX) 1 MG TABLET PO (20:41)
[2023-09-01 21:31] LABS: Glucose Point of Care 160 mg/dl (65-105)
[2023-09-02] VITALS (12 sets, daily range): BP systolic 88–130; BP diastolic 42–66; PULSE 72–85; RESP 16–20; TEMP 36.1–36.7; O2SAT 94–100
[2023-09-02] MEDS: oxyCODONE HCL (*CRX) 5 MG TAB IR PO ×3 (00:49→20:14)
[2023-09-02] MEDS: HYDROmorphone HCL INJ (*CRX) 1 MG/ML SYR IV PUSH ×6 (02:35→22:57)
[2023-09-02 04:51] LABS: Hematocrit 35.8 % (37.0-47.0); Hemoglobin 11.6 g/dL (12.0-15.0); Mean Corpuscular HGB Conc 32.4 g/dl (32-36); Mean Corpuscular Hemoglobin 28.4 pg (26-34); Mean Corpuscular Volume 87.7 fl (80-100); Mean Platelet Volume 9.3 fl (7.4-10.4); Platelet Count Result 191 k/mm3 (150-375); Red Blood Count 4.08 M/mm3 (4.2-5.4); Red Cell Distribution Width 14.8 % (11.5-14.5); White Blood Count 5.9 K/mm3 (4.5-10.0)
[2023-09-02 05:06] LABS: Alanine Aminotransferase 24 U/L (6-35); Albumin Level 3.8 g/dL (3.5-5.1); Alkaline Phosphatase 46 U/L (38-126); Anion Gap 3 mmol/L (4-12); Aspartate Amino Transferase 29 U/L (14-36); Bilirubin,Total 0.6 mg/dL (0.2-1.3); Blood Urea Nitrogen 5 mg/dL (7-17); Calcium 8.2 mg/dL (8.4-10.2); Carbon Dioxide 30 mmol/L (22-30); Chloride 105 mmol/L (98-107); Estimated CRCL calculation 153 ml/min; Estimated Glomerular Filt Rate > 60; Glucose 133 mg/dL (65-110); Lipase 53 U/L (23-300); Sodium 138 mmol/L (137-145); Triglycerides 506 mg/dL (<150)
[2023-09-02] MEDS: LEVOTHYROXINE SODIUM 100 MCG TABLET 200 MCG PO (06:03)
[2023-09-02 08:02] LABS: Glucose Point of Care 147 mg/dl (65-105)
[2023-09-02] MEDS: SODIUM CHLORIDE 0.9% IV 1,000 ML 90 ML IV CONT ×2 (08:34→20:07)
[2023-09-02] MEDS: LIPASE/AMYLASE/PROTEASE 12,000 UNITS CAP 6 CAP PO ×3 (08:35→16:49)
[2023-09-02] MEDS: LOSARTAN POTASSIUM 25 MG TABLET PO (08:35)
[2023-09-02] MEDS: ASPIRIN 81 MG ENTERIC TABLET PO (08:35)
[2023-09-02] MEDS: TICAGRELOR 90 MG TABLET PO ×2 (08:35→20:15)
[2023-09-02] MEDS: diphenhydrAMINE HCl CAP 25 MG CAPSULE 50 MG PO ×2 (08:35→23:03)
[2023-09-02] MEDS: FENOFIBRATE NANOCRYSTALLIZED 145 MG TABLET PO (08:35)
[2023-09-02] MEDS: buPROPion HCL SR (12 HR) 150 MG TAB PO (08:35)
[2023-09-02] MEDS: PANTOPRAZOLE 40 MG TABLET PO ×2 (08:35→16:49)
[2023-09-02] MEDS: METOPROLOL SUCCINATE EXT REL 25 MG TABCR PO (08:35)
[2023-09-02] MEDS: INSULIN ASPART (*BKC) 100 UNITS/ML SUB-Q ×2 (09:11→17:01)
--- NOTE | 2023-09-02 11:27 | PM.IMPN ---
Progress Note: A&P Assessment and Plan (1) Chronic pancreatitis: Code(s): K86.1 - Other chronic pancreatitis Status: Acute Assessment and Plan: Pancreatitis improving follow lipase and trig levels continue clears advance to DM diet tra pt does not want soft diet decrease IV Dilaudid dosing best to try oral narcotics first DC fluids history of triglyceridemia pancreatitis PT/ OT (2) Type 2 diabetes mellitus: Qualifiers: Diabetes mellitus nursing home insulin use: with nursing home use Diabetes mellitus complication status: without complication Qualified Code(s): E11.9 - Type 2 diabetes mellitus without complications; Z79.4 - assisted (current) use of insulin Code(s): E11.9 - Type 2 diabetes mellitus without complications Status: Acute Assessment and Plan: blood sugars are stable today Continue lantus and ssi (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 Status: Acute Assessment and Plan: Trigs 1363 /, 08/31 720 continue to monitor triglycerides and lipase levels and bmp (4) CAD (coronary artery disease): Code(s): I25.10 - Atherosclerotic heart disease of [place] coronary artery without angina pectoris Status: Chronic Assessment and Plan: Currently without symptoms Continue home medications (5) GERD (gastroesophageal reflux disease): Qualifiers: Esophagitis presence: esophagitis presence not specified Qualified Code(s): K21.9 - Gastro-esophageal reflux disease without esophagitis Code(s): K21.9 - Gastro-esophageal reflux disease without esophagitis Status: Acute Assessment and Plan: Continue home regimen of protonix BID (6) Chest pain: Code(s): R07.9 - Chest pain, unspecified Status: Acute Assessment and Plan: Resolved (7) Syncope: Code(s): R55 - Syncope and collapse Status: Acute Assessment and Plan: Pt describes syncope order lying and standing BPs Carotid US to check for caritid stenosis given her triglyceridemia history DC fluids if orthostatics are negative Subjective Date/time seen: 09/02/23 11:27 Interval history: 47-year-old female with past medical history significant for hypertriglyceridemia, chronic pancreatitis, GERD, type diabetes mellitus insulin-dependent, polycystic ovarian syndrome. Pt admitted with chronic pancreatitis still having some abdominal pains needing iv Dilaudid Pt is sp plasmapheresis 4 days ago to lower triglycerides. Pt is on clear liquids at the moment Blood sugars are stable today, pt tolerating clear liquid diet Review of Systems Review of Systems: No nausea, some abdominal pains, complains of syncope today Exam Narrative: GENERAL: middle aged overweight lady NECK: No JVD CHEST: Clear to auscultation. Normal effort. HEART: NL S1/S2, regular, no murmur ABDOMEN: BS+, soft,some left sided upper quadrant tenderness EXTREMITIES: No cyanosis, edema, or clubbing NEUROLOGIC: CN intact and symmetric to inspection. MUSCULOSKELETAL: Tone and strength symmetric. PSYCH: Alert. Oriented to person, place, and time. Objective Data Vital Signs Vital Signs: Vital Signs - 24 hr 09/01/23 12:00 09/01/23 16:00 09/01/23 20:45 Temperature 36.7 C 36.7 C Pulse Rate 76 76 76 Respiratory Rate 14 16 16 Blood Pressure 101/61 100/50 L Pulse Oximetry 98 96 96 Oxygen Delivery Room Air 09/01/23 20:40 09/02/23 00:00 09/02/23 05:50 Temperature 36.5 C 36.1 C L 36.4 C Pulse Rate 75 74 72 Respiratory Rate 16 16 18 Blood Pressure 121/71 110/45 L 118/64 Pulse Oximetry 94 95 95 Oxygen Delivery 09/02/23 08:28 09/02/23 08:00 Temperature Pulse Rate 72 Respiratory Rate Blood Pressure Pulse Oximetry 94 Oxygen Delivery Room Air Room Air Intake/Output Intake/Output: Intake & Output 08/30/23 08/31/23 09/01/23 09/02/23 23:59 23:59 23:59
[2023-09-02 11:54] LABS: Glucose Point of Care 127 mg/dl (65-105)
[2023-09-02] MEDS: ONDANSETRON INJ 4 MG/2 ML VIAL IV PUSH ×2 (14:11→18:03)
[2023-09-02 17:05] LABS: Glucose Point of Care 194 mg/dl (65-105)
--- NOTE | 2023-09-02 17:27 | ECG_ITS ---
SEE SCANNED COPY FOR CONFIRMED REPORT. MTDD
[2023-09-02] MEDS: ALPRAZolam (*CRX) 0.5 MG TABLET PO (18:01)
[2023-09-02] MEDS: CITALOPRAM HYDROBROMIDE 20 MG TABLET 40 MG PO (20:15)
[2023-09-02] MEDS: traZODone HCL 50 MG TABLET 200 MG PO (20:15)
[2023-09-02] MEDS: ATORVASTATIN 40 MG TABLET 80 MG PO (20:15)
[2023-09-02] MEDS: LORazepam (*CRX) 1 MG TABLET PO (20:15)
[2023-09-02] MEDS: INSULIN GLARGINE (*BKC) 100 UNITS/ML 34 UNITS SUB-Q (20:16)
[2023-09-02 20:47] LABS: Glucose Point of Care 241 mg/dl (65-105)
[2023-09-03 00:21] VITALS: BP 120/62; PULSE 77; RESP 14; TEMP 36.4; O2SAT 97
[2023-09-03] MEDS: oxyCODONE HCL (*CRX) 5 MG TAB IR PO ×2 (02:42→08:53)
[2023-09-03] MEDS: ONDANSETRON INJ 4 MG/2 ML VIAL IV PUSH (03:43)
[2023-09-03] MEDS: HYDROmorphone HCL INJ (*CRX) 1 MG/ML SYR IV PUSH ×2 (04:52→12:55)
[2023-09-03 05:52] LABS: Anion Gap 3 mmol/L (4-12); Blood Urea Nitrogen 6 mg/dL (7-17); Calcium 8.5 mg/dL (8.4-10.2); Carbon Dioxide 27 mmol/L (22-30); Chloride 106 mmol/L (98-107); Estimated CRCL calculation 127 ml/min; Estimated Glomerular Filt Rate > 60; Glucose 252 mg/dL (65-110); Lipase 61 U/L (23-300); Potassium 3.9 mmol/L (3.4-5.0); Sodium 136 mmol/L (137-145); Triglycerides 484 mg/dL (<150)
[2023-09-03] MEDS: LEVOTHYROXINE SODIUM 100 MCG TABLET 200 MCG PO (05:53)
[2023-09-03 06:00] VITALS: BP 125/59; PULSE 69; RESP 16; TEMP 36.7; O2SAT 95
[2023-09-03 07:43] LABS: Glucose Point of Care 210 mg/dl (65-105)
[2023-09-03] MEDS: ASPIRIN 81 MG ENTERIC TABLET PO (08:34)
[2023-09-03] MEDS: LOSARTAN POTASSIUM 25 MG TABLET PO (08:34)
[2023-09-03] MEDS: FENOFIBRATE NANOCRYSTALLIZED 145 MG TABLET PO (08:34)
[2023-09-03] MEDS: TICAGRELOR 90 MG TABLET PO (08:34)
[2023-09-03] MEDS: buPROPion HCL SR (12 HR) 150 MG TAB PO (08:35)
[2023-09-03] MEDS: LIPASE/AMYLASE/PROTEASE 12,000 UNITS CAP 6 CAP PO ×2 (08:35→12:49)
[2023-09-03] MEDS: ENOXAPARIN 40 MG/0.4 ML SYRINGE SUB-Q (08:35)
[2023-09-03] MEDS: PANTOPRAZOLE 40 MG TABLET PO (08:35)
[2023-09-03] MEDS: INSULIN ASPART (*BKC) 100 UNITS/ML SUB-Q ×2 (08:35→12:57)
[2023-09-03 08:43] VITALS: PULSE 70
[2023-09-03] MEDS: METOPROLOL SUCCINATE EXT REL 25 MG TABCR PO (08:43)
[2023-09-03 09:33] VITALS: O2SAT 97
[2023-09-03 11:18] VITALS: BP 133/62; PULSE 75; RESP 18; TEMP 36.3; O2SAT 97
[2023-09-03 12:32] LABS: Glucose Point of Care 178 mg/dl (65-105)
--- NOTE | 2023-09-03 14:36 | PM.DS ---
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 Status: Acute (4) CAD (coronary artery disease): Code(s): I25.10 - Atherosclerotic heart disease of [place] coronary artery without angina pectoris Status: Chronic (5) GERD (gastroesophageal reflux disease): Qualifiers: Esophagitis presence: esophagitis presence not specified Qualified Code(s): K21.9 - Gastro-esophageal reflux disease without esophagitis Code(s): K21.9 - Gastro-esophageal reflux disease without esophagitis Status: Acute (6) Chest pain: Code(s): R07.9 - Chest pain, unspecified Status: Acute (7) Syncope: Code(s): R55 - Syncope and collapse Status: Acute DS: Summary Hospital Course Reason for hospitalization: 47yo female with hypertriglyceridemia, chronic pancreatitis, GERD, DM, and PCOD who presents to the emergency room due to epigastric pain and precordial chest pain. Please see H&P for details Hospital Course: Patient presents with abdominal pain. Lipase was normal and remained normal. Triglyceride level was 1363. This trended downward to 480. She continued to have chronic abdominal pain but overall her pain has improved. She still has some nausea but is eating normally. She has weaned down on her narcotics and tolerated this well. She is agreeable for discharge today. Hemoglobin A1c was 9.4. Glucose was monitored with sliding scale protocol. Hypoglycemia protocol was available as needed. Glucose overall remained reasonably well controlled. EKG showed nonspecific T-wave changes. Troponin was negative x3. She has a history of coronary disease with recent stent placement in June. We continued her aspirin, Brilinta, Lipitor and Toprol. No further episodes of chest pain. She mentions she has been having lightheadedness since having her cardiac stent placed in June. Her primary care doctor is in the midst of working this up. Carotid ultrasound performed here showed less than 50% stenosis of the bilateral internal carotid arteries with bilateral antegrade flow in the vertebral arteries. Chest x-ray was clear. Orthostatic vital signs were inaccurate with supine systolic BP 113, dropping to 88 with sitting but back to baseline 112 with standing. Some of these could be related to to narcotics since BP improved as narcotics were weaned. Narcotics are probably contributing to her persistent nausea as well. No BM for 4 days so probably contributing to her abdominal pain. She was on IV fluids as well which probably helped her blood pressure. She overall did well and was able to be discharged home on 09/03/23. Status at Discharge Cognitive/behavioral status at discharge: stable Time Spent with Patient Time attestation: Total time spent providing and/or coordinating discharge services: 34 minutes Time spent: Greater than 30 minutes Exam Narrative: AF 97.6 117/67 70 18 98% ra Gen - NARD Chest - CTA bilaterally, nml RR CV - RRR S1/S2 Abd - soft, diffusely tender Ext - No pedal edema Neuro - Alert and oriented. Nonfocal exam. Psych - Nml mood and affect Skin - Warm and dry DS: Data Data Completed and Pending Labs on day of discharge: Labs from last 24 hours 09/03/23 09/03/23 09/03/23 12:15 07:36 05:02 Sodium 136 L [place]
[2023-09-03 14:37] VITALS: BP 117/67; PULSE 70; RESP 18; TEMP 36.4; O2SAT 98
[2023-09-03] MEDS: HYDROcodone/acetaminophen (*CRX) 5-325 MG TABLET 1 TAB PO (16:06)
[2023-09-03 16:52] LABS: Glucose Point of Care 162 mg/dl (65-105)
== END 2023-09-03 17:06 | disposition home or self-care (01) | DRG 440 ==
LOC: ANHED 08-31 00:50 → ANHIMU 08-31 00:55 → ANH2MED 08-31 11:20
PROVIDERS: Family Medicine; Internal Medicine; Admitting Provider Internal Medicine; Emergency Provider Emergency Medicine; PCP Physician Assistant; Visit Provider Internal Medicine
DX: K86.1 Other chronic pancreatitis (principal); I10 Essential (primary) hypertension; E86.0 Dehydration; K21.9 Gastro-esophageal reflux disease without esophagitis; E11.9 Type 2 diabetes mellitus without complications; E28.2 Polycystic ovarian syndrome; E06.3 Autoimmune thyroiditis; R55 Syncope and collapse; I25.10 Atherosclerotic heart disease of native coronary artery without angina pectoris; E78.3 Hyperchylomicronemia; F17.210 Nicotine dependence, cigarettes, uncomplicated; Z90.49 Acquired absence of other specified parts of digestive tract; Z90.711 Acquired absence of uterus with remaining cervical stump; Z79.82 Long term (current) use of aspirin; Z79.4 Long term (current) use of insulin
CPT/HCPCS: 36415; 71046; 80048; 80053; 82948; 83036; 83690; 84478; 84484; 85025; 85027; 85610; 85730; 93005; 93880; 96361; 96374; 96375; 96376; 97161; 99285; A9270; J1170; J1200; J1650; J1815; J2405; J7030

== ENCOUNTER 2023-10-02 06:56 | Outpatient (CLI) | payer MEDICARE, SELFPAY ==
--- NOTE | ~2023-10-02 | CT_ITS ---
EXAMINATION: CT BRAIN W/O DATE: 10/02/2023 11:02 INDICATION: Dizziness and giddiness. TECHNIQUE: Computed tomography (CT) of the head was performed without intravenous contrast. The dose- length product was 605.33 mGy-cm. Automated exposure control and iterative reconstruction technique w ere employed. COMPARISON: No prior studies for comparison. FINDINGS: Normal brain parenchymal volume for age. Normal abdi-white differentiation. No acute intrac ranial hemorrhage, infarction, mass or mass effect. No ventriculomegaly or midline shift. Midline sagittal images demonstrate a normal corpus callosum, c raniovertebral junction and sella turcica. Basilar cisterns are patent. Paranasal sinuses and mastoids are pneumatized. No depressed skull fractures. IMPRESSION: 1. No acute intracranial abnormality. Reviewed, dictated and finalized at location B.
== END 2023-10-02 07:00 | disposition home or self-care (01) ==
LOC: ANHIMG 10-21 06:56
PROVIDERS: PCP Physician Assistant; Visit Provider Physician Assistant
DX: R42 Dizziness and giddiness (principal)
CPT/HCPCS: 70450; J1644

== ENCOUNTER 2023-10-02 09:49 | Outpatient (RCR) | payer MEDICARE, SELFPAY ==
[2023-08-28 10:35] VITALS: BP 112/64; PULSE 94; RESP 18; TEMP 36.8; O2SAT 93
[2023-08-28] MEDS: SODIUM CHLORIDE 0.9% IV 1,000 ML 999 ML IV CONT (10:35)
[2023-08-28] MEDS: HEPARIN SODIUM, PORCINE 10,000 UNITS/10 ML VIAL 10000 UNITS IV PUSH (10:35)
[2023-08-28] MEDS: ALBUMIN HUMAN 5% 3,000 ML IV CONT (10:35)
[2023-08-28] MEDS: CALCIUM GLUC 2,000 MG/NS 100ML 2,000 MG/100 ML BAG 100 MG IVPB (10:35)
[2023-08-28 11:00] VITALS: BP 107/53; PULSE 82; RESP 18
[2023-08-28 11:43] VITALS: BP 98/56; PULSE 83; RESP 18
[2023-08-28 12:03] VITALS: BP 104/51; PULSE 85; RESP 18
[2023-08-28 12:20] VITALS: BP 107/75; PULSE 87; RESP 18; TEMP 36.4
--- NOTE | ~2023-10-02 | CT_ITS ---
EXAMINATION: CT BRAIN W/O DATE: 10/02/2023 11:02 INDICATION: Dizziness and giddiness. TECHNIQUE: Computed tomography (CT) of the head was performed without intravenous contrast. The dose- length product was 605.33 mGy-cm. Automated exposure control and iterative reconstruction technique w ere employed. COMPARISON: No prior studies for comparison. FINDINGS: Normal brain parenchymal volume for age. Normal abdi-white differentiation. No acute intrac ranial hemorrhage, infarction, mass or mass effect. No ventriculomegaly or midline shift. Midline sagittal images demonstrate a normal corpus callosum, c raniovertebral junction and sella turcica. Basilar cisterns are patent. Paranasal sinuses and mastoids are pneumatized. No depressed skull fractures. IMPRESSION: 1. No acute intracranial abnormality. Reviewed, dictated and finalized at location B.
[2023-10-02] MEDS: HEPARIN SODIUM, PORCINE 10,000 UNITS/10 ML VIAL 10000 UNITS IV PUSH (10:35)
--- NOTE | 2023-10-02 11:15 | PC.NURSE ---
Cath Maint Bilateral Apheresis Ports - NS Flush - Hep Locked - No Issues - Pt departed ambulatory VS T97.5 R18 P 87 BP 112/71 02%98 Next Flush approx 4 weeks - CTA will schedule
== END 2023-11-26 23:59 | disposition home or self-care (01) ==
LOC: ANHVASCINF 09:49
PROVIDERS: PCP Physician Assistant; Visit Provider Physician Assistant
DX: E78.1 Pure hyperglyceridemia (principal)
CPT/HCPCS: 36514; 70450; J0613; J1200; J1644; J2997; J7030; P9045

== ENCOUNTER 2023-10-09 00:34 | Inpatient (IN) | payer MEDICARE, SELFPAY ==
[2023-10-09] VITALS (18 sets, daily range): BP systolic 86–136; BP diastolic 52–76; PULSE 66–114; RESP 13–25; TEMP 36.3–37.1; O2SAT 90–100; BMI 31.1
--- NOTE | ~2023-10-09 | XR_ITS ---
Portable chest x-ray Comparison: 08/30/2023 Clinical History: Dyspnea Findings: Bilateral central venous lines are present, unchanged. Lungs remain clear, without focal c onsolidation or pleural effusion. Cardiomediastinal silhouette is stable. Bones and soft tissues are unremarkable. Impression: Clear lungs. Stable support lines. Reviewed, dictated and finalized at location . Impression: Clear lungs. Stable support lines.
--- NOTE | ~2023-10-09 | CT_ITS ---
CT of the Abdomen and Pelvis: Indication: Abdominal pain Technique: 2.5 mm axial scans were obtained through the abdomen and pelvis following intravenous adm inistration of 100 cc of Omnipaque 350. Dose reduction technique was used on this scan by utilizing a utomated exposure control and iterative reconstruction technique. The dose-length product (DLP) was 7 97.22 mGy-cm. COMPARISON: 07/21/2023 Findings: Scans through the lung bases are unremarkable. The liver, spleen, pancreas, gallbladder, adrenals and kidneys are within normal limits. There are at herosclerotic calcifications of the aorta. No lymphadenopathy. No bowel obstruction or bowel wall thickening. There is no evidence to suggest acute appendicitis. Images through the pelvis were performed. Urinary bladder unremarkable. No pelvic mass seen. No ascit es. Impression: No significant abnormalities seen. Reviewed, dictated and finalized at [facility]. Impression: No significant abnormalities seen.
[2023-10-09 00:46] LABS: Glucose Point of Care 394 mg/dl (65-105)
--- NOTE | 2023-10-09 00:49 | ECG_ITS ---
Test Date: 2023-10-09 01:22:48 Measurements Intervals [place] Rate: 97 P: 49 IA: 158 QRS: 54 QRSD: 83 T: 8 QT: 358 QTc: 455 Interpretive Statements SINUS RHYTHM POSSIBLE LEFT ATRIAL ENLARGEMENT [-0.1mV P WAVE IN V1/V2] NONSPECIFIC ST AND T-WAVE ABNORMALITY No previous ECG available for comparison Electronically Signed On 10-09-2023 11:37:52 CDT by Myla Sheffield M.D.
--- NOTE | 2023-10-09 00:51 | ED.ABDPAIN ---
HPI - Abdominal Pain General Chief Complaint: Abdominal Pain <Vinita Hayward PA-C - Last Filed: 10/09/23 19:34> Stated Complaint: pancreas pains <Vinita Hayward PA-C - Last Filed: 10/09/23 19:34> Time Seen by Provider: 10/09/23 00:38 <Vinita Hayward PA-C - Last Filed: 10/09/23 19:34> History of Present Illness HPI narrative: 47-year-old female with history of GERD, insulin dependent DM, chronic pancreatitis, CAD with s/p 3 stent placements in June of 2023 and chylomicronemia to emergency department for epigastric abdominal pain that started today. Patient states her pain is in the epigastrium it is sharp and radiates to her back, feels like she is having a pancreas attack. Also states today she has been having difficulty keeping her blood sugars low. Normally at home around 150 but the day they have been in the 200s and 300s. She reports nausea with 2 episodes of emesis and episode of diarrhea yesterday. She denies fever or chest pain but is reporting some shortness of breath which she attributes to her pain. She denies dysuria or hematuria. States she took oxycodone today without improvement. Patient notes that she gets plasmapheresis frequently at our hospital through a [facility]. She last had plasmapheresis performed 2 months ago. <Vinita Hayward PA-C - Last Filed: 10/09/23 19:34> Related Data Home Medications: Home Medications Medication Instructions Recorded Confirmed insulin degludec 200 unit/mL (3 34 unit subcut HS 04/06/23 10/09/23 mL) subcutaneous pen (Tresiba FlexTouch U-200 insulin) levothyroxine 200 mcg tablet 200 mcg PO DAILY 07/21/23 10/09/23 metoprolol succinate 25 mg 25 mg PO DAILY 07/21/23 10/09/23 tablet,extended release 24 hr [id number]-[id number]-[id number] 2 cap PO TIDWMEAL 07/22/23 10/09/23 36,000-114,000-180,000 unit capsule,delay rel (Creon) citalopram 40 mg tablet 40 mg PO DAILY 08/31/23 10/09/23 trazodone 100 mg tablet 200 mg PO HS 08/31/23 10/09/23 atorvastatin 80 mg tablet 80 mg PO HS 10/09/23 10/09/23 bupropion HCl 150 mg tablet,12 hr 150 mg PO HS 10/09/23 10/09/23 sustained-release valacyclovir 1 gram tablet 2,000 mg PO Q12H PRN fever blisters 10/09/23 10/09/23 <Vinita Hayward PA-C - Last Filed: 10/09/23 19:34> Allergies/Adverse Reactions: Allergies Allergy/AdvReac Type Severity Reaction Status Date / Time adhesive tape Allergy Mild Rash Verified 10/09/23 02:56 [place] pepper [green pepper] Allergy Unknown Hives Verified 10/09/23 02:56 sucralose Allergy Migraine Verified 10/09/23 02:56 [From Splenda (sucralose)] Artificial Sweetners AdvReac Migraine Uncoded 09/11/23 08:26 <Vinita Hayward PA-C - Last Filed: 10/09/23 19:34> Review of Systems Review of Systems: CONSTITUTIONAL: Denies fever, chills, or sweats. EYES: Denies visual changes, redness, or discharge. ENT: Denies rhinorrhea, congestion, sore throat, or otalgia. CARDIOVASCULAR: Denies chest pain, palpitations, or edema. RESPIRATORY: see HPI GASTROINTESTINAL: See HPI GENITOURINARY: Denies dysuria or hematuria. SKIN: Denies rash or itching. MUSCULOSKELETAL: Denies back pain, joint pain, or myalgia. NEUROLOGIC: Denies headache, numbness, or weakness. PSYCHIATRIC: Denies anxiety or depression. 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
[2023-10-09] MEDS: ONDANSETRON INJ 4 MG/2 ML VIAL IV PUSH ×3 (01:02→12:24)
[2023-10-09] MEDS: SODIUM CHLORIDE 0.9% IV 1,000 ML 999 ML IV CONT ×3 (01:03→02:29)
[2023-10-09] MEDS: HYDROmorphone HCL INJ (*CRX) 1 MG/ML SYR IV PUSH ×8 (01:03→22:41)
[2023-10-09 01:28] LABS: Alanine Aminotransferase 21 U/L (6-35); Albumin Level 3.9 g/dL (3.5-5.1); Alkaline Phosphatase 134 U/L (38-126); Anion Gap 17 mmol/L (4-12); Aspartate Amino Transferase 20 U/L (14-36); Bilirubin,Total 0.7 mg/dL (0.2-1.3); Blood Urea Nitrogen 15 mg/dL (7-17); Calcium 8.3 mg/dL (8.4-10.2); Chloride 97 mmol/L (98-107); Estimated CRCL calculation 126 ml/min; Estimated Glomerular Filt Rate > 60; Mean Corpuscular Hemoglobin 40.3 pg (26-34); Mean Corpuscular Volume 85.8 fl (80-100); Mean Platelet Volume 9.7 fl (7.4-10.4); Platelet Count Result 477 k/mm3 (150-375); Red Cell Distribution Width 14.6 % (11.5-14.5); Sodium 128 mmol/L (137-145)
[2023-10-09 01:42] LABS: Troponin I < 0.012 ng/mL (0.000-0.034)
[2023-10-09 01:50] LABS: Glucose 399 mg/dL (65-110)
[2023-10-09] MEDS: MORPHINE SULFATE (*CRX) 4 MG/ML INJ IV PUSH ×4 (02:02→11:00)
[2023-10-09] MEDS: fentaNYL CITRATE INJ (*CRX) 100 MCG/2 ML VIAL 50 MCG IV PUSH (02:29)
[2023-10-09 02:31] LABS: Magnesium 1.3 mg/dL (1.6-2.3); Phosphorus 5.3 mg/dL (2.5-4.5)
[2023-10-09 02:34] LABS: Fractional Inspired Oxygen 21 %; HCO3 VBG 20.1 mEq/l (24.0-30.0); PCO2 VBG 37.2 mmHg (42.0-48.0); PO2 VBG 35.6 mmHg (35.0-45.0)
[2023-10-09 02:36] LABS: Device ROOM AIR
[2023-10-09] MEDS: MAGNESIUM SULF 2 GM/WATER 50ML 2 GM/50 ML BAG IVPB (02:41)
[2023-10-09] MEDS: SODIUM CHLORIDE 0.9% IV 1,000 ML 150 ML IV CONT (02:44)
[2023-10-09] MEDS: INSULIN HUMAN REGULAR (*BKC) 100 UNITS/ML 13 UNITS IV PUSH (02:44)
[2023-10-09] MEDS: INSULIN HUMAN REGULAR (*BKC) 100 UNITS in SODIUM CHLORIDE 0.9% IV 99 ML 8.63 UNITS IV CONT (02:45)
[2023-10-09 02:58] LABS: Appearance Urine Clear (Clear); Bilirubin Urine Negative (Negative); Blood Urine Negative (Negative); Color Urine Yellow (Yellow); Glucose Urine UA 3+ mg/dL (Negative); Ketones Urine Trace mg/dL (Negative); Leukocyte Esterase Ur Negative LEU/UL (Negative); Nitrate Urine Negative (Negative); Protein Urine Negative (Negative); Urobilinogen Urine 0.2 mg/dL (<2.0); pH Urine 5.5 (5.0-9.0)
[2023-10-09 03:07] LABS: Add Urine Microscopic? NO; Specific Grav Ur 1.069 (1.001-1.035)
[2023-10-09 03:16] LABS: INR 0.9; Prothrombin Time 12.4 Seconds (11.1-14.7)
[2023-10-09 03:54] LABS: Hematocrit 22.9 % (37.0-47.0); Hemoglobin 10.9 g/dL (12.0-15.0); Red Blood Count 2.68 M/mm3 (4.2-5.4)
[2023-10-09 03:59] LABS: Total Cells Counted 100
[2023-10-09 04:01] LABS: Band Neutrophils Percent 4 % (0-6); Lymphocytes Absolute Manual 1.68 K/mm3 (1.1-4.5); Lymphocytes Percent Manual 28 % (18-44); Monocytes Absolute Manual 0.24 K/mm3 (0.1-0.90); Monocytes Percent Manual 4 % (3-9); Neutrophils Absolute Manual 4.08 K/mm3 (1.7-7.2); Neutrophils Percent Manual 64 % (46-73); Platelet Estimate Slightly Increased (Adequate)
[2023-10-09 04:02] LABS: Hypochromasia 1+; Schistocytes None Seen
[2023-10-09 04:10] LABS: Glucose Point of Care 131 mg/dl (65-105)
[2023-10-09] MEDS: KCL 20 MEQ/D5/0.45% SOD CHL 1,000 ML 150 ML IV CONT ×3 (04:20→18:11)
--- NOTE | 2023-10-09 04:23 | PC.NURSE ---
Pt's BS after an hour on insulin drip was 131. Rate of insulin was titrated down to 1 unit/hr and maintenance fluids were changed from NS to KCL 20 Meq/D5/0.45% sodium chloride 0.45% per hospital protocol. EDP aware and states he wants to hold the ordered 1 L bolus of NS. Pt A&O x4 with no complaints at this time.
[2023-10-09 05:14] LABS: Glucose Point of Care 101 mg/dl (65-105)
[2023-10-09 05:14] LABS: Glucose Point of Care 354 mg/dl (65-105)
--- NOTE | 2023-10-09 05:45 | ADMGEN ---
This patient, Casandra Jones, was admitted to Intensive Care Unit-4. Patient/family oriented to hospital policies and general routines including ID bracelet, bed and alarms, visiting hours, pain management, procedures, bathroom and other care routines, personal items, smoking policy, room service/diet, and visiting hours. Information on how to activate the Rapid Response Team has been discussed. Patient/Family are encouraged to report perceived risks to care and to ask questions if they do not understand what they are told or what they should do.
[2023-10-09 06:35] LABS: Glucose Point of Care 106 mg/dl (65-105)
[2023-10-09 06:43] LABS: Blood Urea Nitrogen 12 mg/dL (7-17); Chloride 110 mmol/L (98-107); Potassium 4.4 mmol/L (3.4-5.0); Sodium 135 mmol/L (137-145)
[2023-10-09 06:44] LABS: Estimated CRCL calculation 152 ml/min; Estimated Glomerular Filt Rate > 60; Glucose 97 mg/dL (65-110)
[2023-10-09 07:25] LABS: Glucose Point of Care 165 mg/dl (65-105)
[2023-10-09 08:05] LABS: Glucose Point of Care 189 mg/dl (65-105)
[2023-10-09] MEDS: PANTOPRAZOLE SODIUM IV 40 MG VIAL IV PUSH ×2 (08:14→21:54)
[2023-10-09] MEDS: ENOXAPARIN 40 MG/0.4 ML SYRINGE SUB-Q (08:15)
[2023-10-09 09:06] LABS: Glucose Point of Care 213 mg/dl (65-105)
--- NOTE | 2023-10-09 09:09 | WPDCNINT ---
Assessment and Plan Assessment and plan (1) DKA (diabetic ketoacidosis): Qualifiers: Diabetes mellitus complication detail: without coma Diabetes mellitus type: due to underlying condition Qualified Code(s): E08.10 - Diabetes mellitus due to underlying condition with ketoacidosis without coma Code(s): E11.10 - Type 2 diabetes mellitus with ketoacidosis without coma Status: Acute Assessment and Plan: 10/08: Patient presented with epigastric abdominal pain, nausea, vomiting, elevated blood sugars -found to be in DKA in the ER -was given 3 L IV fluids -started on insulin infusion per DKA protocol -continue insulin infusion as unable to get CO2 resulted on her blood due to being lipemic. -hemoglobin A1c was also not able to be resulted due to the lipemic blood -will check serial BMPs along with triglycerides (2) Hypertriglyceridemia: Code(s): E78.1 - Pure hyperglyceridemia Status: Acute Assessment and Plan: Patient has a history of hypertriglyceridemia, the blood drawn was lipemic, leading for us to think that she has high triglyceride levels -continue insulin infusion for now -nephrology has been consulted for plasmapheresis as the patient states that the plasma phoresis health with a hypertriglyceridemia and she has been getting at as outpatient. Last plasmapheresis was 2 months ago (3) Electrolyte imbalance: Code(s): E87.8 - Other disorders of electrolyte and fluid balance, not elsewhere classified Status: Acute Assessment and Plan: Will replace calcium (4) Abdominal pain: Qualifiers: Abdominal location: right upper quadrant Qualified Code(s): R10.11 - Right upper quadrant pain Code(s): R10.9 - Unspecified abdominal pain Status: Acute Assessment and Plan: Could be related to DKA, chronic pancreatitis -continue p.r.n. pain meds 10/08: CT scan of the abdomen and pelvis with no significant abnormalities (5) Chronic pancreatitis: Qualifiers: Pancreatitis type: unspecified pancreatitis type Qualified Code(s): K86.1 - Other chronic pancreatitis Code(s): K86.1 - Other chronic pancreatitis Status: Acute Assessment and Plan: History of chronic pancreatitis -patient on Creon at home, will start once patient states taking p.o. 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 (7) GERD (gastroesophageal reflux disease): Qualifiers: Esophagitis presence: esophagitis presence not specified Qualified Code(s): K21.9 - Gastro-esophageal reflux disease without esophagitis Code(s): K21.9 - Gastro-esophageal reflux disease without esophagitis Status: Acute Assessment and Plan: Continue Protonix IV q.12.H Plan DVT prophylaxis: Lovenox Stress ulcer prophylaxis: Protonix Nutrition: NPO for now Code Status: Full code Critical Care Time Spent: 47 minutes Due to a high probability of clinically significant, life threatening deterioration, the patient required my highest level of preparedness to intervene emergently and I personally spent this critical care time directly and personally managing the patient. This critical care time included obtaining a history; examining the patient; pulse oximetry; ordering and review of studies; arranging urgent treatment with development of a management plan; evaluation of patient's response to treatment; frequent reassessment; and discussions with other providers. It was exclusive of separately billable procedures and treating other patients and teaching time. Please see Assessment and Plan section and the rest of the note for further information on patient assessment and treatment This dictation may have been done utilizing a voice recognition system. Attempts have been made to correct
[2023-10-09 09:37] LABS: MRSA (PCR) NOT DETECTED (NOT DETECTE)
[2023-10-09 09:57] LABS: Glucose Point of Care 243 mg/dl (65-105)
[2023-10-09 11:00] LABS: Glucose Point of Care 243 mg/dl (65-105)
[2023-10-09] MEDS: TICAGRELOR 90 MG TABLET PO ×2 (11:01→16:26)
[2023-10-09] MEDS: ASPIRIN 81 MG ENTERIC TABLET PO (11:01)
[2023-10-09 11:36] LABS: Blood Urea Nitrogen 9 mg/dL (7-17); Calcium 6.9 mg/dL (8.4-10.2); Chloride 107 mmol/L (98-107); Estimated CRCL calculation 152 ml/min; Estimated Glomerular Filt Rate > 60; Glucose 216 mg/dL (65-110); Potassium 4.2 mmol/L (3.4-5.0); Sodium 133 mmol/L (137-145)
[2023-10-09 11:57] LABS: Glucose Point of Care 260 mg/dl (65-105)
--- NOTE | 2023-10-09 12:12 | PCFNICU ---
ICU Rounding Note: Pt current nutrition is NPO. Last recorded weight is 85 kg. Bowel Motility: No BM reported. Labs Reviewed:Cr 0.4,Na 135 Meds Noted:Insulin Regular, Lovenox Skin: WNL Additional Notes: Patient admitted with DKA. [id number]. Patient had ab pain, nausea and vomiting on admit. NPO diet at this time. Allergies:[place] pepper, sucralose, artificial sweeteners. Agree with diet orders at this time. Following daily in ICU rounds.
[2023-10-09 13:06] LABS: Glucose Point of Care 230 mg/dl (65-105)
[2023-10-09 14:15] LABS: Glucose Point of Care 199 mg/dl (65-105)
--- NOTE | 2023-10-09 14:19 | PM.IMHP ---
H&P: HPI History of Present Illness Date/Time: 10/09/23 14:19 Chief Complaint: Abdominal pain Diabetic ketoacidosis Narrative: 47 year old female with significant past medical history of chronic pancreatitis, chylomicronemia syndrome, GERD, hypertriglyceridemia, hypothyroidism, insulin-dependent diabetes , polycystic ovarian syndrome, Port-A-Cath x2, history of multiple plasmapheresis as outpatient and inpatient presented the ED on 10/09/2023 with complains of abdominal pain in the epigastrium region, nausea, vomiting, elevated blood sugars for 1 day. Decreased oral intake. Patient denies chest pain. She had some shortness of breath on admission which she attributed to her abdominal pain. Pt was given 3 L IV fluid bolus and started on insulin infusion per DKA protocol and transferred to the ICU for further management. 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 Nausea Occult blood in stools PCOS (polycystic ovarian syndrome) Port-A-Cath in place Thyroid disorder Surgical History Surgical History History of appendectomy History of conization of cervix History of dilatation and curettage History of endometrial ablation History of exploratory laparotomy History of loop electrical excision procedure (LEEP) History of partial hysterectomy History of tonsillectomy History of tubal ligation History of wisdom tooth extraction Family History Family History Father Alcohol abuse Hypertension Mother Hypothyroid Cerebrovascular accident Grandparent Skin cancer Colon cancer Heart disease Hypothyroid Cerebrovascular accident Sibling Hypothyroid Kidney disorder Hypertension Autoimmune disorder Mother Family history of thyroid disease Family history of diabetes mellitus in first degree relative Father Family history of diabetes mellitus in first degree relative Patient's father is Other Diabetes mellitus Family history of alcoholism Family history of cardiovascular disease Family history of kidney disease Social History Social History Social History: She smokes a pack a day for the past 30 years. No alcohol or drug use. She has 2 dogs and a cat at home. Surrogate medical decision maker: José Miguel Jones, spouse. Code status: Full Smoking packs per day: 0.25 Smoking cigarettes per day: 5.0 Years smoked: 30 Smoking pack-years: 7.50 Smoking status: Current every day smoker Tobacco type: cigarettes Second hand tobacco smoke exposure: No Alcohol intake: never Drinks per week: 0 Substance use: current Substance use type: prescription drug Do You Feel Safe in your Home?: Yes Lack of Transportation: No Lack of Food: Never True Current Housing: I Have Housing Concerned About Future Housing: No Difficulty Paying Gas/Electric Bills: No Difficulty Paying for Meds: No Currently Unemployed: No Education: Decline to Answer Difficulty w/ Childcare or Family Care: No Living arrangements: with family Spiritual care concerns: No Meds Home Medications and Allergies Home Medications Medication Instructions Recorded Confirmed Type fenofibrate nanocrystallized 145 145 mg PO DAILY #90 tabs 07/24/22 10/09/23 Rx mg tablet ondansetron 4
--- NOTE | 2023-10-09 14:30 | WPDNEURCNPN ---
Assessment and Plan Assessment and plan (1) Syncope: Code(s): R55 - Syncope and collapse Status: Acute Plan Diabetic neuropathy with normal mental status at this straight otherwise his carry out the nerve conduction studies as an outpatient and discuss the case with dr Castellano Consult date: 10/09/23 HPI: Casandra Jones is a 47 year old female Admitted to the hospital for the complaints of abdominal pain with ongoing history of insulin-dependent diabetic, chronic pancreatitis, coronary artery disease with status post 3 stent placement in June of 2023, Trey 0 micro anemia reportedly her pain the epigastrium was sharp was radiating to her back felt like having a pancreatic attack associated with hypoglycemia though recently they have been above the normal range with no associated fever chest pain or difficulties in breathing she did take the oxycodone with relief of the pain and discomfort she does get plasmapheresis frequently at the [facility] and the last was performed about 2 months ago her regular medications include insulin 34units subQ levothyroxine 200mcg p.o. daily metoprolol 25mg daily and lipase protease amylase capsule 2 capsules 3 times a day with meals also citalopram 40mg at night and trazodone 200mg at night. She does have ongoing history of chronic pancreatitis, GERD, headache, long-term use of blood thinners, history of Jade's thyroiditis, polycystic ovarian syndrome, she smokes a pack a day for the last 30 years does not drink alcohol and does not take any drugs his smoking pack year history is 31 and currently everyday smoker on initial exam she had no focal neurological deficit her CT scan of the belly was negative for the pancreatitis in the emergency room her vital signs were with pulse rate of 101 blood pressure 91/76 EKG normal troponin nondetectable lactic acid 2.0 basic metabolic panel with blood sugar [address] scan of the head normal and abdomen and pelvic CT scan normal . She is being treated at present for the diabetic ketoacidosis, with abdominal pain, hypertriglyceridemia, neuro consultation has been obtained for the complaints of dizziness. 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 Nausea Occult blood in stools PCOS (polycystic ovarian syndrome) Port-A-Cath in place Thyroid disorder Surgical History Surgical History History of appendectomy History of conization of cervix History of dilatation and curettage History of endometrial ablation History of exploratory laparotomy History of loop electrical excision procedure (LEEP) History of partial hysterectomy History of tonsillectomy History of tubal ligation History of wisdom tooth extraction Family History Family History Father Alcohol abuse Hypertension Mother Hypothyroid Cerebrovascular accident Grandparent Skin cancer Colon cancer Heart disease Hypothyroid Cerebrovascular accident Sibling Hypothyroid Kidney disorder Hypertension Autoimmune disorder Mother Family history of thyroid disease Family history of diabetes mellitus in first degree relative Father Family history of diabetes mellitus in first degree relative Patient's father is Other Diabetes mellitus Family history of alcoholism Family history of cardiovascular disease Family history of kidney disease Social History Social History (Reviewed 10/09/23 @ 14:40 by [place]
[2023-10-09] MEDS: CALCIUM GLUC 2,000 MG/NS 100ML 2,000 MG/100 ML BAG 100 MG IVPB (14:39)
[2023-10-09 15:15] LABS: Glucose Point of Care 169 mg/dl (65-105)
[2023-10-09 15:39] LABS: Blood Urea Nitrogen 7 mg/dL (7-17); Calcium 6.9 mg/dL (8.4-10.2); Chloride 108 mmol/L (98-107); Estimated CRCL calculation 152 ml/min; Estimated Glomerular Filt Rate > 60; Glucose 179 mg/dL (65-110); Potassium 4.3 mmol/L (3.4-5.0); Sodium 133 mmol/L (137-145)
[2023-10-09] MEDS: PROCHLORPERAZINE EDISYLATE 10 MG/2 ML VIAL IV PUSH (16:26)
[2023-10-09 16:37] LABS: Glucose Point of Care 191 mg/dl (65-105)
[2023-10-09] MEDS: LORazepam INJ (*CRX) 2 MG/ML VIAL 1 MG IV PUSH (17:06)
[2023-10-09 17:25] LABS: Glucose Point of Care 190 mg/dl (65-105)
[2023-10-09 18:22] LABS: Glucose Point of Care 191 mg/dl (65-105)
[2023-10-09 19:15] LABS: Blood Urea Nitrogen 6 mg/dL (7-17); Calcium 7.5 mg/dL (8.4-10.2); Chloride 107 mmol/L (98-107); Estimated CRCL calculation 152 ml/min; Estimated Glomerular Filt Rate > 60; Glucose 175 mg/dL (65-110); Potassium 4.4 mmol/L (3.4-5.0); Sodium 132 mmol/L (137-145)
[2023-10-09 19:39] LABS: Glucose Point of Care 198 mg/dl (65-105)
[2023-10-09 20:44] LABS: Glucose Point of Care 201 mg/dl (65-105)
[2023-10-09 21:40] LABS: Glucose Point of Care 209 mg/dl (65-105)
[2023-10-09 22:40] LABS: Glucose Point of Care 231 mg/dl (65-105)
[2023-10-09 23:43] LABS: Blood Urea Nitrogen 4 mg/dL (7-17); Calcium 7.3 mg/dL (8.4-10.2); Chloride 109 mmol/L (98-107); Estimated CRCL calculation 152 ml/min; Estimated Glomerular Filt Rate > 60; Glucose 202 mg/dL (65-110); Potassium 4.2 mmol/L (3.4-5.0); Sodium 132 mmol/L (137-145)
[2023-10-10] VITALS (18 sets, daily range): BP systolic 109–151; BP diastolic 62–95; PULSE 67–100; RESP 9–22; TEMP 36.6–37.1; O2SAT 94–99
[2023-10-10 00:12] LABS: Glucose Point of Care 226 mg/dl (65-105)
[2023-10-10] MEDS: HYDROmorphone HCL INJ (*CRX) 1 MG/ML SYR IV PUSH ×6 (00:30→20:12)
[2023-10-10] MEDS: KCL 20 MEQ/D5/0.45% SOD CHL 1,000 ML 150 ML IV CONT ×4 (01:00→22:21)
[2023-10-10 01:21] LABS: Glucose Point of Care 245 mg/dl (65-105)
[2023-10-10 02:38] LABS: Glucose Point of Care 234 mg/dl (65-105)
[2023-10-10 04:07] LABS: Glucose Point of Care 245 mg/dl (65-105)
[2023-10-10 04:11] LABS: Alanine Aminotransferase 14 U/L (6-35); Alkaline Phosphatase 69 U/L (38-126); Aspartate Amino Transferase 20 U/L (14-36); Bilirubin,Total 0.5 mg/dL (0.2-1.3); Chloride 108 mmol/L (98-107); Phosphorus 3.2 mg/dL (2.5-4.5); Potassium 4.1 mmol/L (3.4-5.0)
[2023-10-10 04:12] LABS: Albumin Level 3.4 g/dL (3.5-5.1); Blood Urea Nitrogen 3 mg/dL (7-17); Calcium 7.5 mg/dL (8.4-10.2); Estimated CRCL calculation 152 ml/min; Estimated Glomerular Filt Rate > 60; Magnesium 1.3 mg/dL (1.6-2.3); Sodium 134 mmol/L (137-145)
[2023-10-10 04:13] LABS: Glucose 229 mg/dL (65-110)
[2023-10-10 04:15] LABS: Basophils Percent Auto 0.3 % (0.2-1.2); Eosinophils Absolute Auto 0.1 K/mm3 (0-0.3); Eosinophils Percent Auto 1.5 % (0-4.4); Hematocrit 32.8 % (37.0-47.0); Hemoglobin 11.9 g/dL (12.0-15.0); Immature Granulocyte Absolute 0.07 K/mm3 (0.00-0.031); Immature Granulocyte Percent A 0.9 % (0-0.5); Lymphocytes Absolute Auto 2.25 K/mm3 (0.9-3.2); Lymphocytes Percent Auto 28.2 % (18.3-44.2); Mean Corpuscular HGB Conc 36.3 g/dl (32-36); Mean Corpuscular Hemoglobin 31.1 pg (26-34); Mean Corpuscular Volume 85.6 fl (80-100); Mean Platelet Volume 9.5 fl (7.4-10.4); Monocytes Absolute Auto 0.4 K/mm3 (0.1-0.6); Monocytes Percent Auto 4.5 % (2.6-8.5); Neutrophils Absolute Auto 5.2 K/mm3 (1.3-6.7); Neutrophils Percent Auto 64.6 % (45.5-73.1); Platelet Count Result 323 k/mm3 (150-375); Red Blood Count 3.83 M/mm3 (4.2-5.4); Red Cell Distribution Width 14.7 % (11.5-14.5)
[2023-10-10 05:26] LABS: Glucose Point of Care 255 mg/dl (65-105)
[2023-10-10 06:47] LABS: Glucose Point of Care 251 mg/dl (65-105)
[2023-10-10] MEDS: CALCIUM GLUC 2,000 MG/NS 100ML 2,000 MG/100 ML BAG 100 MG IVPB ×2 (07:55→15:15)
[2023-10-10] MEDS: PANTOPRAZOLE SODIUM IV 40 MG VIAL IV PUSH ×2 (07:56→20:12)
[2023-10-10] MEDS: fentaNYL CITRATE INJ (*CRX) 100 MCG/2 ML VIAL 25 MCG IV PUSH ×3 (07:56→22:47)
[2023-10-10] MEDS: LORazepam INJ (*CRX) 2 MG/ML VIAL 0.5 MG IV PUSH ×2 (07:57→13:56)
[2023-10-10] MEDS: TICAGRELOR 90 MG TABLET PO ×2 (07:57→16:53)
[2023-10-10] MEDS: ASPIRIN 81 MG ENTERIC TABLET PO (07:57)
[2023-10-10] MEDS: ENOXAPARIN 40 MG/0.4 ML SYRINGE SUB-Q (08:13)
[2023-10-10 08:21] LABS: Glucose Point of Care 218 mg/dl (65-105)
--- NOTE | 2023-10-10 08:24 | WPDINTPN ---
Progress Note: A&P Assessment and Plan (1) DKA (diabetic ketoacidosis): Qualifiers: Diabetes mellitus complication detail: without coma Diabetes mellitus type: due to underlying condition Qualified Code(s): E08.10 - Diabetes mellitus due to underlying condition with ketoacidosis without coma Code(s): E11.10 - Type 2 diabetes mellitus with ketoacidosis without coma Status: Acute Assessment and Plan: 10/08: Patient presented with epigastric abdominal pain, nausea, vomiting, elevated blood sugars -found to be in DKA in the ER -was given 3 L IV fluids -started on insulin infusion per DKA protocol -continue insulin infusion as unable to get CO2 resulted on her blood due to being lipemic. -hemoglobin A1c was also not able to be resulted due to the lipemic blood -continue serial BMPs along with triglycerides (2) Hypertriglyceridemia: Code(s): E78.1 - Pure hyperglyceridemia Status: Acute Assessment and Plan: Patient has a history of hypertriglyceridemia, the blood drawn was lipemic, leading for us to think that she has high triglyceride levels -continue insulin infusion for now -nephrology has been consulted for plasmapheresis as the patient states that the plasma phoresis health with a hypertriglyceridemia and she has been getting at as outpatient. Last plasmapheresis was 2 months ago (3) Electrolyte imbalance: Code(s): E87.8 - Other disorders of electrolyte and fluid balance, not elsewhere classified Status: Acute Assessment and Plan: Will replace calcium and magnesium (4) Abdominal pain: Qualifiers: Abdominal location: right upper quadrant Qualified Code(s): R10.11 - Right upper quadrant pain Code(s): R10.9 - Unspecified abdominal pain Status: Acute Assessment and Plan: Could be related to DKA, chronic pancreatitis -continue p.r.n. pain meds -added p.r.n. Ativan which she takes at home 10/08: CT scan of the abdomen and pelvis with no significant abnormalities (5) Chronic pancreatitis: Qualifiers: Pancreatitis type: unspecified pancreatitis type Qualified Code(s): K86.1 - Other chronic pancreatitis Code(s): K86.1 - Other chronic pancreatitis Status: Acute Assessment and Plan: History of chronic pancreatitis -patient on Creon at home, will start once patient states taking p.o. 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 (7) GERD (gastroesophageal reflux disease): Qualifiers: Esophagitis presence: esophagitis presence not specified Qualified Code(s): K21.9 - Gastro-esophageal reflux disease without esophagitis Code(s): K21.9 - Gastro-esophageal reflux disease without esophagitis Status: Acute Assessment and Plan: Continue Protonix IV q.12.H Plan DVT prophylaxis: Lovenox Stress ulcer prophylaxis: Protonix Nutrition: NPO for now Code Status: Full code Critical Care Time Spent: 32 minutes Discussed with Nephrology, will try and arrange plasmapheresis today Due to a high probability of clinically significant, life threatening deterioration, the patient required my highest level of preparedness to intervene emergently and I personally spent this critical care time directly and personally managing the patient. This critical care time included obtaining a history; examining the patient; pulse oximetry; ordering and review of studies; arranging urgent treatment with development of a management plan; evaluation of patient's response to treatment; frequent reassessment; and discussions with other providers. It was exclusive of separately billable procedures and treating other patients and teaching time. Please see Assessment and Plan section and the rest of the note for further information on patient
[2023-10-10] MEDS: MAGNESIUM SULF 2 GM/WATER 50ML 2 GM/50 ML BAG IVPB (08:48)
[2023-10-10 09:29] LABS: Glucose Point of Care 203 mg/dl (65-105)
--- NOTE | 2023-10-10 10:34 | PCFNICU ---
ICU Rounding Note: Pt current nutrition is NPO. Nutrition recommendation: advance diet when appropriate and as tolerated Last recorded weight is 85 kg. Bowel Motility: No BM recorded as of yet Labs Reviewed: Hgb:11.9, HCT:32.8, Alb:3.4, NA:134, BUN:3, Cr:0.4, glu: 200 Meds Noted: D5 1/2NA Skin: WNL Additional Notes: pt remains NPO, nursing reports has been sick to her stomach and not interested in food at this time. No plans to advance diet yet today. Following daily in ICU rounds.
[2023-10-10 10:40] LABS: Glucose Point of Care 198 mg/dl (65-105)
[2023-10-10 11:35] LABS: Glucose Point of Care 181 mg/dl (65-105)
--- NOTE | 2023-10-10 12:11 | PM.CNNEP ---
Assessment and Plan Assessment and plan (1) Hypertriglyceridemia: Code(s): E78.1 - Pure hyperglyceridemia Status: Chronic Assessment and Plan: suspected elevated triglyceride levels unable to verify triglyceride level due lipemic blood already on insulin gtt last session of plasmapheresis for this issue was 2 months ago appears symptomatic with regard to this issue plan for plasmapheresis today goal of plasmapheresis therapy would be to get triglyceride level less than 600 continue ongoing medical therapy (2) DKA (diabetic ketoacidosis): Qualifiers: Diabetes mellitus complication detail: without coma Diabetes mellitus type: due to underlying condition Qualified Code(s): E08.10 - Diabetes mellitus due to underlying condition with ketoacidosis without coma Code(s): E11.10 - Type 2 diabetes mellitus with ketoacidosis without coma Status: Acute Assessment and Plan: as noted/suspected by testing in ER s/p IVF resuscitation on insulin gtt per DKA protocol unfortunately, unable to assess CO2 due to lipemic blood follow serial labs for now (3) Abdominal pain: Qualifiers: Abdominal location: right upper quadrant Qualified Code(s): R10.11 - Right upper quadrant pain Code(s): R10.9 - Unspecified abdominal pain Status: Acute Assessment and Plan: due to DKA versus known history of chronic pancreatitis versus combination of both(?) CT of abd/pelvis without any acute pathology PRN pain medications I will continue follow the patient with you while she remains hospitalized make further recommendations as deemed necessary. Thank you for allowing me to participate in care this patient. History of Present Illness Reason for Consult Consult date: 10/10/23 Reason for consult: Other (Plasmapheresis) Chief Complaint Chief complaint: DKA History of Present Illness Narrative: The patient is a 46-year-old female with an extensive past medical history as outlined below who presented to [facility] Emergency room with complaints of abdominal pain. The patient reports that the abdominal stained started about 1-2 days ago in association with nausea, vomiting, and elevated blood sugars. She also reports that because of these symptoms, her oral intake has diminished. the abdominal pain is localized to the epigastric area and is somewhat similar to her previous episodes of pancreatitis. She also reported some mild shortness of breath but she attributed this to her abdominal pain as well. Given these constellation of symptoms, she presented to the emergency room for further assessment. Workup and evaluation in the emergency room demonstrated the patient being hemodynamically stable but in mild distress secondary to her abdominal pain. Workup and evaluation in the emergency room was somewhat limited as several of her blood tests were inconclusive due to the significant lipemic blood samples. There was suspicion that her triglyceride levels were quite elevated thereby possibly prompting her abdominal symptoms. There is also concern that she had DKA as well given her high blood sugars. She received aggressive IV fluid resuscitation in the emergency room and was instituted on insulin drip per DKA protocol as well as to potentially treat her suspected hypertriglyceridemia and she was subsequently admitted to the ICU for further evaluation and therapy. Since her admission, her abdominal pain is somewhat better but is difficult to assess what her triglycerides, lipase, and bicarb levels are due to her blood still being like P chantell. She otherwise appears hemodynamically stable. Renal consultation was requested due to the need for plasmapheresis for treatment of her hypertriglyceridemia. The patient has received plasmapheresis during her many hospitalizations in the past for her high triglyceride levels both here at [facility] and at [facility]
[2023-10-10 12:46] LABS: Glucose Point of Care 200 mg/dl (65-105)
[2023-10-10] MEDS: SODIUM CHLORIDE 0.9% IV 1,000 ML 999 ML IRRIGATION (13:00)
[2023-10-10 14:04] LABS: Glucose Point of Care 203 mg/dl (65-105)
[2023-10-10 15:09] LABS: Glucose Point of Care 196 mg/dl (65-105)
[2023-10-10 16:58] LABS: Glucose Point of Care 219 mg/dl (65-105)
[2023-10-10] MEDS: ALBUMIN HUMAN 5% IV CONT (17:00)
[2023-10-10] MEDS: HEPARIN SODIUM, PORCINE 10,000 UNITS/10 ML VIAL 10000 UNITS XX (17:00)
[2023-10-10 18:38] LABS: Glucose Point of Care 243 mg/dl (65-105)
[2023-10-10] MEDS: ONDANSETRON INJ 4 MG/2 ML VIAL IV PUSH (20:12)
[2023-10-10 20:44] LABS: Glucose Point of Care 228 mg/dl (65-105)
[2023-10-10] MEDS: diphenhydrAMINE HCl INJ 50 MG/ML VIAL 25 MG IV PUSH (21:24)
[2023-10-10 21:39] LABS: Glucose Point of Care 207 mg/dl (65-105)
[2023-10-10 22:32] LABS: Glucose Point of Care 185 mg/dl (65-105)
[2023-10-11] VITALS (30 sets, daily range): BP systolic 110–149; BP diastolic 58–87; PULSE 61–101; RESP 10–29; TEMP 36.7–36.9; O2SAT 95–100
[2023-10-11] MEDS: HYDROmorphone HCL INJ (*CRX) 1 MG/ML SYR IV PUSH ×8 (00:07→23:23)
[2023-10-11 00:32] LABS: Glucose Point of Care 185 mg/dl (65-105)
[2023-10-11 02:14] LABS: Glucose Point of Care 218 mg/dl (65-105)
[2023-10-11 03:47] LABS: Basophils Percent Auto 0.3 % (0.2-1.2); Eosinophils Absolute Auto 0.2 K/mm3 (0-0.3); Eosinophils Percent Auto 1.7 % (0-4.4); Hematocrit 34.9 % (37.0-47.0); Hemoglobin 12.1 g/dL (12.0-15.0); Immature Granulocyte Absolute 0.08 K/mm3 (0.00-0.031); Immature Granulocyte Percent A 0.9 % (0-0.5); Lymphocytes Absolute Auto 2.23 K/mm3 (0.9-3.2); Lymphocytes Percent Auto 24.8 % (18.3-44.2); Mean Corpuscular HGB Conc 34.7 g/dl (32-36); Mean Corpuscular Hemoglobin 29.8 pg (26-34); Mean Platelet Volume 9.3 fl (7.4-10.4); Monocytes Absolute Auto 0.5 K/mm3 (0.1-0.6); Monocytes Percent Auto 5.5 % (2.6-8.5); Neutrophils Percent Auto 66.8 % (45.5-73.1); Platelet Count Result 305 k/mm3 (150-375); Red Blood Count 4.06 M/mm3 (4.2-5.4); Red Cell Distribution Width 15.1 % (11.5-14.5)
[2023-10-11 05:07] LABS: Alanine Aminotransferase 11 U/L (6-35); Albumin Level 4.1 g/dL (3.5-5.1); Alkaline Phosphatase 31 U/L (38-126); Anion Gap 11 mmol/L (4-12); Aspartate Amino Transferase 19 U/L (14-36); Bilirubin,Total 0.8 mg/dL (0.2-1.3); Blood Urea Nitrogen < 2 mg/dL (7-17); Calcium 8.2 mg/dL (8.4-10.2); Carbon Dioxide 19 mmol/L (22-30); Chloride 107 mmol/L (98-107); Estimated CRCL calculation 152 ml/min; Estimated Glomerular Filt Rate > 60; Glucose 201 mg/dL (65-110); Lipase 35 U/L (23-300); Magnesium 1.3 mg/dL (1.6-2.3); Phosphorus 3.4 mg/dL (2.5-4.5); Sodium 137 mmol/L (137-145); Triglycerides 1194 mg/dL (<150)
[2023-10-11 05:12] LABS: Glucose Point of Care 225 mg/dl (65-105)
[2023-10-11 06:39] LABS: Glucose Point of Care 225 mg/dl (65-105)
[2023-10-11 07:39] LABS: Glucose Point of Care 218 mg/dl (65-105)
[2023-10-11 08:18] LABS: Glucose Point of Care 209 mg/dl (65-105)
[2023-10-11] MEDS: TICAGRELOR 90 MG TABLET PO ×2 (08:29→16:29)
[2023-10-11] MEDS: PANTOPRAZOLE SODIUM IV 40 MG VIAL IV PUSH ×2 (08:29→21:18)
[2023-10-11] MEDS: ASPIRIN 81 MG ENTERIC TABLET PO (08:29)
[2023-10-11] MEDS: MAGNESIUM SULFATE 3GM/D5W100ML 3 GM/100 ML BAG IVPB (08:30)
[2023-10-11] MEDS: ENOXAPARIN 40 MG/0.4 ML SYRINGE SUB-Q (08:30)
[2023-10-11] MEDS: KCL 20 MEQ/D5/0.45% SOD CHL 1,000 ML 150 ML IV CONT (08:41)
[2023-10-11 09:20] LABS: Glucose Point of Care 207 mg/dl (65-105)
--- NOTE | 2023-10-11 09:27 | WPDINTPN ---
Progress Note: A&P Assessment and Plan (1) DKA (diabetic ketoacidosis): Qualifiers: Diabetes mellitus complication detail: without coma Diabetes mellitus type: due to underlying condition Qualified Code(s): E08.10 - Diabetes mellitus due to underlying condition with ketoacidosis without coma Code(s): E11.10 - Type 2 diabetes mellitus with ketoacidosis without coma Status: Acute Assessment and Plan: 10/08: Patient presented with epigastric abdominal pain, nausea, vomiting, elevated blood sugars -found to be in DKA in the ER -was given 3 L IV fluids -started on insulin infusion per DKA protocol -continue insulin infusion as unable to get CO2 resulted on her blood due to being lipemic. -hemoglobin A1c was also not able to be resulted due to the lipemic blood -awaiting BMP, if anion gap is closed, will transition to long-acting insulin and sliding scale insulin -hemoglobin A1c was finally resulted at 8.0 this admission (2) Hypertriglyceridemia: Code(s): E78.1 - Pure hyperglyceridemia Status: Acute Assessment and Plan: Patient has a history of hypertriglyceridemia, the blood drawn was lipemic, leading for us to think that she has high triglyceride levels -continue insulin infusion for now -nephrology has been consulted for plasmapheresis as the patient states that the plasma phoresis health with a hypertriglyceridemia and she has been getting at as outpatient. Last plasmapheresis was 2 months ago 10/09: 1st session of plasmapheresis completed 10/10: Triglyceride finally resulted in 1194, lipase of 35 As per Nephrology patient to receive another round of plasmapheresis today on 10/10 (3) Electrolyte imbalance: Code(s): E87.8 - Other disorders of electrolyte and fluid balance, not elsewhere classified Status: Acute Assessment and Plan: Replace magnesium (4) Abdominal pain: Qualifiers: Abdominal location: right upper quadrant Qualified Code(s): R10.11 - Right upper quadrant pain Code(s): R10.9 - Unspecified abdominal pain Status: Acute Assessment and Plan: Could be related to DKA, chronic pancreatitis -continue p.r.n. pain meds -added p.r.n. Ativan which she takes at home 10/08: CT scan of the abdomen and pelvis with no significant abnormalities (5) Chronic pancreatitis: Qualifiers: Pancreatitis type: unspecified pancreatitis type Qualified Code(s): K86.1 - Other chronic pancreatitis Code(s): K86.1 - Other chronic pancreatitis Status: Acute Assessment and Plan: History of chronic pancreatitis -patient on Creon at home, will start once patient states taking p.o. 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 Status: Acute Assessment and Plan: Hypertriglyceridemia, on fenofibrate, will restart when patient starts taking p.o. (7) GERD (gastroesophageal reflux disease): Qualifiers: Esophagitis presence: esophagitis presence not specified Qualified Code(s): K21.9 - Gastro-esophageal reflux disease without esophagitis Code(s): K21.9 - Gastro-esophageal reflux disease without esophagitis Status: Acute Assessment and Plan: Continue Protonix IV q.12.H Plan DVT prophylaxis: Lovenox Stress ulcer prophylaxis: Protonix Nutrition: NPO for now Code Status: Full code Critical Care Time Spent: 32 minutes Patient to get plasmapheresis again today Due to a high probability of clinically significant, life threatening deterioration, the patient required my highest level of preparedness to intervene emergently and I personally spent this critical care time directly and personally managing the patient. This critical care time included obtaining a history; examining the patient; pulse oximetry; ordering and review of studies; arranging urgent treatment with development of a management plan
[2023-10-11 10:15] LABS: Anion Gap 8 mmol/L (4-12); Calcium 8.2 mg/dL (8.4-10.2); Carbon Dioxide 21 mmol/L (22-30); Chloride 108 mmol/L (98-107); Estimated CRCL calculation 150 ml/min; Estimated Glomerular Filt Rate > 60; Glucose 213 mg/dL (65-110); Potassium 4.4 mmol/L (3.4-5.0); Sodium 137 mmol/L (137-145)
[2023-10-11 10:18] LABS: Blood Urea Nitrogen < 2 mg/dL (7-17)
[2023-10-11 10:27] LABS: Glucose Point of Care 216 mg/dl (65-105)
[2023-10-11] MEDS: INSULIN GLARGINE (*BKC) 100 UNITS/ML 25 UNITS SUB-Q (11:02)
--- NOTE | 2023-10-11 11:06 | PCFNICU ---
ICU Rounding Note: Pt current nutrition is DBCC. Last recorded weight is 83.1 kg. Bowel Motility: +BM reported 10/07 Labs Reviewed: TG 1194, Cr 0.4,Glu 201, Meds Noted: Dilaudid, Lantus, Protonix Skin: WNL Additional Notes: Patient is NPO advancing to [facility] diet. Plasmapheresis again today. Agree with diet orders. Following daily in ICU rounds.
[2023-10-11 11:55] LABS: Glucose Point of Care 186 mg/dl (65-105)
--- NOTE | 2023-10-11 12:38 | P.PNNP_ITS ---
Progress Note: A&P Assessment and Plan (1) Hypertriglyceridemia: Code(s): E78.1 - Pure hyperglyceridemia Status: Chronic Assessment and Plan: * suspected elevated triglyceride levels * unable to verify triglyceride level due lipemic blood * already on insulin gtt * last session of plasmapheresis for this issue was 2 months ago * appears symptomatic with regard to this issue * Patient had plasmapheresis yesterday. * Her triglyceride level is down to just over 1100. * will do another plasmapheresis today (2) DKA (diabetic ketoacidosis): Qualifiers: Diabetes mellitus complication detail: without coma Diabetes mellitus type: due to underlying condition Qualified Code(s): E08.10 - Diabetes mellitus due to underlying condition with ketoacidosis without coma Code(s): E11.10 - Type 2 diabetes mellitus with ketoacidosis without coma Status: Acute Assessment and Plan: * as noted/suspected by testing in ER * s/p IVF resuscitation * on insulin gtt per DKA protocol * CO2 is 21 and anion gap is normal. (3) Abdominal pain: Qualifiers: Abdominal location: right upper quadrant Qualified Code(s): R10.11 - Right upper quadrant pain Code(s): R10.9 - Unspecified abdominal pain Status: Acute Assessment and Plan: * due to DKA versus known history of chronic pancreatitis versus combination of both(?) * CT of abd/pelvis without any acute pathology * PRN pain medications Subjective Date/time seen: 10/11/23 12:38 Interval history: patient is feeling about the same. Has body aches everywhere. No appetite. Review of Systems Cardiovascular: Cardiovascular: Reports no additional cardiovascular complaints Respiratory: Respiratory: Reports no additional respiratory complaints Gastrointestinal: Gastrointestinal: Reports no additional gastrointestinal complaints Genitourinary: Genitourinary: Reports no additional female genitourinary complaints Exam Narrative: WDWN in NAD skin no rash head ncat lungs clear cor reg no rub abd BS+ nontender and soft ext no edema. Objective Data Vital Signs Vital Signs: Vital Signs - 24 hr 10/10/23 14:00 10/10/23 14:00 10/10/23 16:00 Temperature Pulse Rate 81 81 71 Respiratory Rate 12 Blood Pressure 141/88 H Pulse Oximetry 97 Oxygen Delivery 10/10/23 16:00 10/10/23 16:00 10/10/23 15:15 Temperature 98.7 F 98.6 F Pulse Rate 71 71 74 Respiratory Rate 11 L 11 L 19 Blood Pressure 138/69 139/69 Pulse Oximetry 96 96 98 Oxygen Delivery Room Air 10/10/23 15:45 10/10/23 15:30 10/10/23 16:00 Temperature 98.6 F 98.6 F 98.3 F Pulse Rate 76 71 84 Respiratory Rate 18 18 18 Blood Pressure 145/72 H 127/69 138/69 Pulse Oximetry Oxygen Delivery 10/10/23 17:00 10/10/23 18:00 10/10/23 18:00 Temperature 98.2 F Pulse Rate 94 93 100 Respiratory Rate 18 20 Blood Pressure 124/62 Pulse Oximetry 97 Oxygen Delivery 10/10/23 18:25 10/10/23 15:15 10/10/23 17:00 Temperature Pulse Rate 90 79
--- NOTE | 2023-10-11 12:38 | PM.PNNEP ---
Progress Note: A&P Assessment and Plan (1) Hypertriglyceridemia: Code(s): E78.1 - Pure hyperglyceridemia Status: Chronic Assessment and Plan: suspected elevated triglyceride levels unable to verify triglyceride level due lipemic blood already on insulin gtt last session of plasmapheresis for this issue was 2 months ago appears symptomatic with regard to this issue Patient had plasmapheresis yesterday. Her triglyceride level is down to just over 1100. will do another plasmapheresis today (2) DKA (diabetic ketoacidosis): Qualifiers: Diabetes mellitus complication detail: without coma Diabetes mellitus type: due to underlying condition Qualified Code(s): E08.10 - Diabetes mellitus due to underlying condition with ketoacidosis without coma Code(s): E11.10 - Type 2 diabetes mellitus with ketoacidosis without coma Status: Acute Assessment and Plan: as noted/suspected by testing in ER s/p IVF resuscitation on insulin gtt per DKA protocol CO2 is 21 and anion gap is normal. (3) Abdominal pain: Qualifiers: Abdominal location: right upper quadrant Qualified Code(s): R10.11 - Right upper quadrant pain Code(s): R10.9 - Unspecified abdominal pain Status: Acute Assessment and Plan: due to DKA versus known history of chronic pancreatitis versus combination of both(?) CT of abd/pelvis without any acute pathology PRN pain medications Subjective Date/time seen: 10/11/23 12:38 Interval history: patient is feeling about the same. Has body aches everywhere. No appetite. Review of Systems Cardiovascular: Cardiovascular: Reports no additional cardiovascular complaints Respiratory: Respiratory: Reports no additional respiratory complaints Gastrointestinal: Gastrointestinal: Reports no additional gastrointestinal complaints Genitourinary: Genitourinary: Reports no additional female genitourinary complaints Exam Narrative: WDWN in NAD skin no rash head ncat lungs clear cor reg no rub abd BS+ nontender and soft ext no edema. Objective Data Vital Signs Vital Signs: Vital Signs - 24 hr 10/10/23 14:00 10/10/23 14:00 10/10/23 16:00 Temperature Pulse Rate 81 81 71 Respiratory Rate 12 Blood Pressure 141/88 H Pulse Oximetry 97 Oxygen Delivery 10/10/23 16:00 10/10/23 16:00 10/10/23 15:15 Temperature 98.7 F 98.6 F Pulse Rate 71 71 74 Respiratory Rate 11 L 11 L 19 Blood Pressure 138/69 139/69 Pulse Oximetry 96 96 98 Oxygen Delivery Room Air 10/10/23 15:45 10/10/23 15:30 10/10/23 16:00 Temperature 98.6 F 98.6 F 98.3 F Pulse Rate 76 71 84 Respiratory Rate 18 18 18 Blood Pressure 145/72 H 127/69 138/69 Pulse Oximetry Oxygen Delivery 10/10/23 17:00 10/10/23 18:00 10/10/23 18:00 Temperature 98.2 F Pulse Rate 94 93 100 Respiratory Rate 18 20 Blood Pressure 124/62 Pulse Oximetry 97 Oxygen Delivery 10/10/23 18:25 10/10/23 15:15 10/10/23 17:00 Temperature Pulse Rate 90 79 Respiratory Rate 11 L 12 Blood Pressure 124/64 138/76 124/62 Pulse Oximetry 98 97 Oxygen Delivery 10/10/23 20:00 10/10/23 22:00 10/10/23 20:00 Temperature 98.3 F Pulse Rate 83 73 83 Respiratory Rate 12 12 Blood Pressure 144/69 H Pulse Oximetry 98 96 Oxygen Delivery 10/11/23 00:00 10/11/23 02:00 10/10/23 22:00 Temperature 98.3 F 98.3 F Pulse Rate 86 80 77 Respiratory Rate 16 15 Blood Pressure 125/87 123/64 Pulse Oximetry 99 98 Oxygen Delivery 10/11/23 00:00 10/11/23 02:00 10/11/23 04:00 Temperature 98.3 F Pulse Rate 86 71 68 Respiratory Rate 13 Blood Pressure 112/85 Pulse Oximetry 96 Oxygen Delivery 10/11/23 04:00 10/11/23 06:00 10/11/23 06:00 Temperature 98.3 F Pulse Rate 68 79 79 Respiratory Rate 12 Blood Pressure 134/66 Pulse Oximetry Oxygen Delivery 10/11/23 08:00 10/11/23 08:00
[2023-10-11] MEDS: ALBUMIN HUMAN 5% IV CONT (14:00)
[2023-10-11] MEDS: HEPARIN SODIUM, PORCINE 10,000 UNITS/10 ML VIAL 10000 UNITS XX (14:52)
[2023-10-11] MEDS: CALCIUM GLUC 2,000 MG/NS 100ML 2,000 MG/100 ML BAG 100 MG IVPB (14:52)
[2023-10-11] MEDS: SODIUM CHLORIDE 0.9% IV 500 ML BAG 1000 ML IRRIGATION (14:53)
--- NOTE | 2023-10-11 15:16 | PC.NURSE ---
all the albumin, heparin, calcium and a bag of normal sailine was used by plasma pheresis nurse in order for her to perform a pheresis
[2023-10-11 16:21] LABS: Glucose Point of Care 159 mg/dl (65-105)
[2023-10-11] MEDS: LORazepam INJ (*CRX) 2 MG/ML VIAL 0.5 MG IV PUSH ×2 (17:18→23:25)
[2023-10-11 21:03] LABS: Glucose Point of Care 160 mg/dl (65-105)
[2023-10-11] MEDS: fentaNYL CITRATE INJ (*CRX) 100 MCG/2 ML VIAL 25 MCG IV PUSH (21:18)
[2023-10-11] MEDS: diphenhydrAMINE HCl CAP 25 MG CAPSULE PO (21:18)
[2023-10-12] VITALS (9 sets, daily range): BP systolic 108–131; BP diastolic 56–83; PULSE 70–125; RESP 14–24; TEMP 36.4–36.9; O2SAT 96–99
[2023-10-12] MEDS: HYDROmorphone HCL INJ (*CRX) 1 MG/ML SYR IV PUSH ×8 (01:17→23:16)
[2023-10-12] MEDS: fentaNYL CITRATE INJ (*CRX) 100 MCG/2 ML VIAL 25 MCG IV PUSH (03:28)
[2023-10-12 07:14] LABS: Basophils Percent Auto 0.3 % (0.2-1.2); Eosinophils Absolute Auto 0.2 K/mm3 (0-0.3); Eosinophils Percent Auto 1.7 % (0-4.4); Hematocrit 36.7 % (37.0-47.0); Hemoglobin 12.4 g/dL (12.0-15.0); Immature Granulocyte Absolute 0.11 K/mm3 (0.00-0.031); Immature Granulocyte Percent A 1.2 % (0-0.5); Lymphocytes Absolute Auto 2.17 K/mm3 (0.9-3.2); Lymphocytes Percent Auto 23.9 % (18.3-44.2); Mean Corpuscular HGB Conc 33.8 g/dl (32-36); Mean Corpuscular Hemoglobin 29.6 pg (26-34); Mean Corpuscular Volume 87.6 fl (80-100); Mean Platelet Volume 9.3 fl (7.4-10.4); Monocytes Absolute Auto 0.5 K/mm3 (0.1-0.6); Monocytes Percent Auto 5.8 % (2.6-8.5); Neutrophils Absolute Auto 6.1 K/mm3 (1.3-6.7); Neutrophils Percent Auto 67.1 % (45.5-73.1); Platelet Count Result 285 k/mm3 (150-375); Red Blood Count 4.19 M/mm3 (4.2-5.4); Red Cell Distribution Width 15.6 % (11.5-14.5); White Blood Count 9.1 K/mm3 (4.5-10.0)
[2023-10-12 07:16] LABS: Alanine Aminotransferase 10 U/L (6-35); Albumin Level 4.2 g/dL (3.5-5.1); Alkaline Phosphatase 31 U/L (38-126); Anion Gap 8 mmol/L (4-12); Aspartate Amino Transferase 17 U/L (14-36); Bilirubin,Total 0.8 mg/dL (0.2-1.3); Blood Urea Nitrogen < 2 mg/dL (7-17); Calcium 8.6 mg/dL (8.4-10.2); Carbon Dioxide 20 mmol/L (22-30); Chloride 110 mmol/L (98-107); Estimated CRCL calculation 149 ml/min; Estimated Glomerular Filt Rate > 60; Glucose 206 mg/dL (65-110); Magnesium 1.7 mg/dL (1.6-2.3); Phosphorus 3.5 mg/dL (2.5-4.5); Potassium 3.8 mmol/L (3.4-5.0); Sodium 138 mmol/L (137-145)
[2023-10-12 07:50] LABS: Triglycerides 640 mg/dL (<150)
[2023-10-12] MEDS: LEVOTHYROXINE SODIUM 100 MCG TABLET 200 MCG PO (08:00)
[2023-10-12] MEDS: HYDROcodone/acetaminophen (*CRX) 5-325 MG TABLET 1 TAB PO ×2 (08:00→15:31)
[2023-10-12 08:09] LABS: Glucose Point of Care 237 mg/dl (65-105)
--- NOTE | 2023-10-12 08:35 | PHAR ---
Home medication Creon 22622 capsules identified in pharmacy and returned to ICU
[2023-10-12] MEDS: LORazepam INJ (*CRX) 2 MG/ML VIAL 0.5 MG IV PUSH (08:46)
[2023-10-12] MEDS: PANTOPRAZOLE SODIUM IV 40 MG VIAL IV PUSH ×2 (08:47→20:26)
[2023-10-12] MEDS: TICAGRELOR 90 MG TABLET PO ×2 (08:47→16:03)
[2023-10-12] MEDS: INSULIN GLARGINE (*BKC) 100 UNITS/ML 25 UNITS SUB-Q (08:48)
[2023-10-12] MEDS: CITALOPRAM HYDROBROMIDE 20 MG TABLET 40 MG PO (08:49)
[2023-10-12] MEDS: FENOFIBRATE 160 MG TABLET PO (08:49)
[2023-10-12] MEDS: ENOXAPARIN 40 MG/0.4 ML SYRINGE SUB-Q (08:49)
[2023-10-12] MEDS: ASPIRIN 81 MG ENTERIC TABLET PO (08:49)
[2023-10-12] MEDS: INSULIN ASPART (*BKC) 100 UNITS/ML SUB-Q (08:50)
--- NOTE | 2023-10-12 09:41 | WPDINTPN ---
Progress Note: A&P Assessment and Plan (1) DKA (diabetic ketoacidosis): Qualifiers: Diabetes mellitus complication detail: without coma Diabetes mellitus type: due to underlying condition Qualified Code(s): E08.10 - Diabetes mellitus due to underlying condition with ketoacidosis without coma Code(s): E11.10 - Type 2 diabetes mellitus with ketoacidosis without coma Status: Acute Assessment and Plan: 10/08: Patient presented with epigastric abdominal pain, nausea, vomiting, elevated blood sugars -found to be in DKA in the ER -was given 3 L IV fluids -started on insulin infusion per DKA protocol in the ER -continue insulin infusion as unable to get CO2 resulted on her blood due to being lipemic. -hemoglobin A1c was also not able to be resulted due to the lipemic blood -10/10: Patient transition to long-acting insulin, Accu-Cheks and sliding scale insulin as her anion gap is closed, also started her on carb consistent diabetic diet. -10/10: hemoglobin A1c was finally resulted at 8.0 this admission (2) Hypertriglyceridemia: Code(s): E78.1 - Pure hyperglyceridemia Status: Acute Assessment and Plan: Patient has a history of hypertriglyceridemia, the blood drawn was lipemic, leading for us to think that she has high triglyceride levels -continue insulin infusion for now -nephrology has been consulted for plasmapheresis as the patient states that the plasma phoresis health with a hypertriglyceridemia and she has been getting at as outpatient. Last plasmapheresis was 2 months ago 10/09: Started 1st session of plasmapheresis 10/10: Triglyceride finally resulted in 1194, lipase of 35 10/11: Triglyceride levels are 640 this morning Plasmapheresis done on 10/09 and 10/10 per Nephrology (3) Electrolyte imbalance: Code(s): E87.8 - Other disorders of electrolyte and fluid balance, not elsewhere classified Status: Acute Assessment and Plan: Replace magnesium (4) Abdominal pain: Qualifiers: Abdominal location: right upper quadrant Qualified Code(s): R10.11 - Right upper quadrant pain Code(s): R10.9 - Unspecified abdominal pain Status: Acute Assessment and Plan: Could be related to DKA, chronic pancreatitis -continue p.r.n. pain meds -added p.r.n. Ativan which she takes at home 06/12: CT scan of the abdomen and pelvis with no significant abnormalities (5) Chronic pancreatitis: Qualifiers: Pancreatitis type: unspecified pancreatitis type Qualified Code(s): K86.1 - Other chronic pancreatitis Code(s): K86.1 - Other chronic pancreatitis Status: Acute Assessment and Plan: History of chronic pancreatitis -started Creon which patient takes at home. 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 Status: Acute Assessment and Plan: Hypertriglyceridemia, started on fenofibrate, and atorvastatin (7) GERD (gastroesophageal reflux disease): Qualifiers: Esophagitis presence: esophagitis presence not specified Qualified Code(s): K21.9 - Gastro-esophageal reflux disease without esophagitis Code(s): K21.9 - Gastro-esophageal reflux disease without esophagitis Status: Acute Assessment and Plan: Continue Protonix IV q.12.H (8) Anxiety: Code(s): F41.9 - Anxiety disorder, unspecified Status: Acute Assessment and Plan: Patient has been restarted on her home bupropion, citalopram, lorazepam, trazodone Plan DVT prophylaxis: Lovenox Stress ulcer prophylaxis: Protonix Nutrition: Diabetic diet Code Status: Full code Critical Care Time Spent: 31 minutes Patient may transfer out of the ICU Discussed with patient and updated her with her condition and plan of care. I answered all questions Due to a high probability of clinically significant, life threatening deterioration, th
[2023-10-12] MEDS: MAGNESIUM SULF 2 GM/WATER 50ML 2 GM/50 ML BAG IVPB (10:45)
[2023-10-12 12:19] LABS: Glucose Point of Care 147 mg/dl (65-105)
--- NOTE | 2023-10-12 12:44 | P.PNNP_ITS ---
Progress Note: A&P Assessment and Plan (1) Hypertriglyceridemia: Code(s): E78.1 - Pure hyperglyceridemia Status: Chronic Assessment and Plan: * suspected elevated triglyceride levels * unable to verify triglyceride level due lipemic blood * already on insulin gtt * last session of plasmapheresis for this issue was 2 months ago * appears symptomatic with regard to this issue * Patient had plasmapheresis yesterday. * her Triglyceride level is down to just above 600. * will hold off on plasmapheresis today. * Check another level tomorrow. (2) DKA (diabetic ketoacidosis): Qualifiers: Diabetes mellitus complication detail: without coma Diabetes mellitus type: due to underlying condition Qualified Code(s): E08.10 - Diabetes mellitus due to underlying condition with ketoacidosis without coma Code(s): E11.10 - Type 2 diabetes mellitus with ketoacidosis without coma Status: Acute Assessment and Plan: * as noted/suspected by testing in ER * s/p IVF resuscitation * Off IV Insulin * CO2 20 with an anion gap of only 8 (3) Abdominal pain: Qualifiers: Abdominal location: right upper quadrant Qualified Code(s): R10.11 - Right upper quadrant pain Code(s): R10.9 - Unspecified abdominal pain Status: Acute Assessment and Plan: * due to DKA versus known history of chronic pancreatitis versus combination of both(?) * CT of abd/pelvis without any acute pathology * PRN pain medications Subjective Date/time seen: 10/12/23 12:44 Interval history: patient feels about the same. Exam Narrative: WDWN in NAD skin no rash Or subcu nodules head ncat lungs clear cor reg no rub abd BS+ minimally tender and soft ext no edema. Objective Data Vital Signs Vital Signs: Vital Signs - 24 hr 10/11/23 14:00 10/11/23 14:00 10/11/23 14:00 Temperature 98.4 F Pulse Rate 78 78 66 Respiratory Rate 16 16 Blood Pressure 132/68 139/75 Pulse Oximetry 98 99 Oxygen Delivery 10/11/23 14:15 10/11/23 14:30 10/11/23 14:45 Temperature 98.4 F 98.4 F 98.4 F Pulse Rate 69 79 78 Respiratory Rate 15 17 16 Blood Pressure 132/69 134/70 113/62 Pulse Oximetry Oxygen Delivery 10/11/23 15:00 10/11/23 15:15 10/11/23 15:25 Temperature 98.4 F 98.4 F 98.4 F Pulse Rate 77 78 74 Respiratory Rate 15 16 16 Blood Pressure 122/77 120/80 110/72 Pulse Oximetry Oxygen Delivery 10/11/23 15:30 10/11/23 15:45 10/11/23 16:00 Temperature 98.4 F 98.3 F 98.3 F Pulse Rate 98 81 87 Respiratory Rate 18 17 20 Blood Pressure 122/80 128/70 113/74 Pulse Oximetry 98 Oxygen Delivery 10/11/23 16:00 10/11/23 16:00 10/11/23 18:00 Temperature Pulse Rate 97 97 75 Respiratory Rate 20 Blood Pressure Pulse Oximetry 98 Oxygen Delivery Room Air 10/11/23 18:00 10/11/23 14:18 10/11/23 16:03 Temperature Pulse Rate 75 75 85 Respiratory Rate 15 15 12 Blood Pressure 125/58 L Pulse Oximetry 96 97 99 Oxygen Deliv
--- NOTE | 2023-10-12 12:44 | PM.PNNEP ---
Progress Note: A&P Assessment and Plan (1) Hypertriglyceridemia: Code(s): E78.1 - Pure hyperglyceridemia Status: Chronic Assessment and Plan: suspected elevated triglyceride levels unable to verify triglyceride level due lipemic blood already on insulin gtt last session of plasmapheresis for this issue was 2 months ago appears symptomatic with regard to this issue Patient had plasmapheresis yesterday. her Triglyceride level is down to just above 600. will hold off on plasmapheresis today. Check another level tomorrow. (2) DKA (diabetic ketoacidosis): Qualifiers: Diabetes mellitus complication detail: without coma Diabetes mellitus type: due to underlying condition Qualified Code(s): E08.10 - Diabetes mellitus due to underlying condition with ketoacidosis without coma Code(s): E11.10 - Type 2 diabetes mellitus with ketoacidosis without coma Status: Acute Assessment and Plan: as noted/suspected by testing in ER s/p IVF resuscitation Off IV Insulin CO2 20 with an anion gap of only 8 (3) Abdominal pain: Qualifiers: Abdominal location: right upper quadrant Qualified Code(s): R10.11 - Right upper quadrant pain Code(s): R10.9 - Unspecified abdominal pain Status: Acute Assessment and Plan: due to DKA versus known history of chronic pancreatitis versus combination of both(?) CT of abd/pelvis without any acute pathology PRN pain medications Subjective Date/time seen: 10/12/23 12:44 Interval history: patient feels about the same. Exam Narrative: WDWN in NAD skin no rash Or subcu nodules head ncat lungs clear cor reg no rub abd BS+ minimally tender and soft ext no edema. Objective Data Vital Signs Vital Signs: Vital Signs - 24 hr 10/11/23 14:00 10/11/23 14:00 10/11/23 14:00 Temperature 98.4 F Pulse Rate 78 78 66 Respiratory Rate 16 16 Blood Pressure 132/68 139/75 Pulse Oximetry 98 99 Oxygen Delivery 10/11/23 14:15 10/11/23 14:30 10/11/23 14:45 Temperature 98.4 F 98.4 F 98.4 F Pulse Rate 69 79 78 Respiratory Rate 15 17 16 Blood Pressure 132/69 134/70 113/62 Pulse Oximetry Oxygen Delivery 10/11/23 15:00 10/11/23 15:15 10/11/23 15:25 Temperature 98.4 F 98.4 F 98.4 F Pulse Rate 77 78 74 Respiratory Rate 15 16 16 Blood Pressure 122/77 120/80 110/72 Pulse Oximetry Oxygen Delivery 10/11/23 15:30 10/11/23 15:45 10/11/23 16:00 Temperature 98.4 F 98.3 F 98.3 F Pulse Rate 98 81 87 Respiratory Rate 18 17 20 Blood Pressure 122/80 128/70 113/74 Pulse Oximetry 98 Oxygen Delivery 10/11/23 16:00 10/11/23 16:00 10/11/23 18:00 Temperature Pulse Rate 97 97 75 Respiratory Rate 20 Blood Pressure Pulse Oximetry 98 Oxygen Delivery Room Air 10/11/23 18:00 10/11/23 14:18 10/11/23 16:03 Temperature Pulse Rate 75 75 85 Respiratory Rate 15 15 12 Blood Pressure 125/58 L Pulse Oximetry 96 97 99 Oxygen Delivery 10/11/23 18:01 10/11/23 19:01 10/11/23 20:00 Temperature 98.4 F Pulse Rate 74 84 73 Respiratory Rate 14 15 12 Blood Pressure 125/58 L 124/72 Pulse Oximetry 100 99 95 Oxygen Delivery 10/11/23 21:00 10/11/23 20:00 10/11/23 22:00 Temperature Pulse Rate 92 66 96 Respiratory Rate 11 L Blood Pressure Pulse Oximetry 100 Oxygen Delivery 10/11/23 20:00 10/11/23 22:00 10/11/23 23:30 Temperature 98.3 F Pulse Rate 81 96 Respiratory Rate 15 Blood Pressure 149/69 H Pulse Oximetry 99 97 Oxygen Delivery Room Air 10/12/23 00:00 10/12/23 00:00 10/12/23 02:00 Temperature Pulse Rate 78 87 Respiratory Rate Blood Pressure Pulse Oximetry Oxygen Delivery Room Air 10/12/23 02:00 10/12/23 04:00 10/12/23 04:00 Temperature 98.4 F Pulse Rate 87 82 Respiratory Rate 16 Blood Pressure 129/78 Pulse Oximetry 99 99 Oxygen Delivery Room Air 10/12/23 04:
--- NOTE | 2023-10-12 15:45 | PC.NURSE ---
This patient, Casandra Jones, was transferred to [facility] on 10/12/23 at 1544. Personal belongings sent with patient. Report given to Annie OLGUIN. Appropriate documentation sent with patient.
--- NOTE | 2023-10-12 15:56 | PC.NURSE ---
Pt. received from ICU into room 302 at 1544. Pt. oriented to unit policies and procedures.
[2023-10-12] MEDS: ONDANSETRON INJ 4 MG/2 ML VIAL IV PUSH (16:03)
[2023-10-12 16:43] LABS: Glucose Point of Care 167 mg/dl (65-105)
[2023-10-12] MEDS: ATORVASTATIN 40 MG TABLET 80 MG PO (20:26)
[2023-10-12] MEDS: traZODone HCL 50 MG TABLET 200 MG PO (20:26)
[2023-10-12] MEDS: buPROPion HCL SR (12 HR) 150 MG TAB PO (20:26)
[2023-10-12] MEDS: LORazepam (*CRX) 1 MG TABLET PO (20:30)
[2023-10-12 22:13] LABS: Glucose Point of Care 184 mg/dl (65-105)
[2023-10-13] MEDS: HYDROmorphone HCL INJ (*CRX) 1 MG/ML SYR IV PUSH ×4 (02:03→16:59)
[2023-10-13] MEDS: HYDROcodone/acetaminophen (*CRX) 5-325 MG TABLET 1 TAB PO ×2 (05:30→13:22)
[2023-10-13] MEDS: LEVOTHYROXINE SODIUM 100 MCG TABLET 200 MCG PO (05:30)
[2023-10-13 06:00] VITALS: BP 109/58; PULSE 84; RESP 18; TEMP 36.3; O2SAT 95
[2023-10-13 06:15] LABS: Basophils Percent Auto 0.4 % (0.2-1.2); Eosinophils Absolute Auto 0.1 K/mm3 (0-0.3); Eosinophils Percent Auto 1.5 % (0-4.4); Hematocrit 35.7 % (37.0-47.0); Hemoglobin 11.7 g/dL (12.0-15.0); Immature Granulocyte Absolute 0.11 K/mm3 (0.00-0.031); Immature Granulocyte Percent A 1.5 % (0-0.5); Lymphocytes Absolute Auto 2.11 K/mm3 (0.9-3.2); Lymphocytes Percent Auto 28.9 % (18.3-44.2); Mean Corpuscular HGB Conc 32.8 g/dl (32-36); Mean Corpuscular Hemoglobin 29.2 pg (26-34); Mean Platelet Volume 9.4 fl (7.4-10.4); Monocytes Absolute Auto 0.5 K/mm3 (0.1-0.6); Monocytes Percent Auto 6.6 % (2.6-8.5); Neutrophils Absolute Auto 4.5 K/mm3 (1.3-6.7); Neutrophils Percent Auto 61.1 % (45.5-73.1); Platelet Count Result 252 k/mm3 (150-375); Red Blood Count 4.01 M/mm3 (4.2-5.4); Red Cell Distribution Width 15.7 % (11.5-14.5); White Blood Count 7.3 K/mm3 (4.5-10.0)
[2023-10-13 06:33] LABS: Alanine Aminotransferase 13 U/L (6-35); Alkaline Phosphatase 37 U/L (38-126); Anion Gap 9 mmol/L (4-12); Aspartate Amino Transferase 22 U/L (14-36); Bilirubin,Total 0.9 mg/dL (0.2-1.3); Blood Urea Nitrogen 7 mg/dL (7-17); Carbon Dioxide 22 mmol/L (22-30); Chloride 107 mmol/L (98-107); Estimated CRCL calculation 54 ml/min; Estimated Glomerular Filt Rate 48; Glucose 165 mg/dL (65-110); Potassium 3.8 mmol/L (3.4-5.0); Sodium 138 mmol/L (137-145)
[2023-10-13 06:47] LABS: Triglycerides 692 mg/dL (<150)
[2023-10-13 08:03] LABS: Glucose Point of Care 173 mg/dl (65-105)
[2023-10-13] MEDS: FENOFIBRATE 160 MG TABLET PO (09:47)
[2023-10-13] MEDS: ENOXAPARIN 40 MG/0.4 ML SYRINGE SUB-Q (09:47)
[2023-10-13] MEDS: CITALOPRAM HYDROBROMIDE 20 MG TABLET 40 MG PO (09:47)
[2023-10-13] MEDS: TICAGRELOR 90 MG TABLET PO ×2 (09:48→17:02)
[2023-10-13] MEDS: INSULIN GLARGINE (*BKC) 100 UNITS/ML 25 UNITS SUB-Q (09:48)
[2023-10-13] MEDS: ASPIRIN 81 MG ENTERIC TABLET PO (09:48)
[2023-10-13] MEDS: PANTOPRAZOLE SODIUM IV 40 MG VIAL IV PUSH ×2 (09:48→22:15)
[2023-10-13 10:17] VITALS: TEMP 36.4
[2023-10-13 11:42] LABS: Glucose Point of Care 206 mg/dl (65-105)
[2023-10-13] MEDS: ONDANSETRON INJ 4 MG/2 ML VIAL IV PUSH (13:04)
[2023-10-13 14:00] VITALS: BP 112/64; PULSE 88; RESP 18; TEMP 36.4; O2SAT 98
[2023-10-13 16:52] LABS: Glucose Point of Care 152 mg/dl (65-105)
[2023-10-13] MEDS: metFORMIN HCL 500 MG TABLET 1000 MG PO (17:02)
[2023-10-13] MEDS: LORazepam INJ (*CRX) 2 MG/ML VIAL 0.5 MG IV PUSH (18:42)
--- NOTE | 2023-10-13 19:47 | PC.NURSE ---
Pt reports 8/10 pain. Pt refused to eat lunch today so afternoon dose of insulin was held. Pt was told that she would be discharging and pt became upset. Pt called hospital and spoke with warehouse packaging supervisor. Pt requested to speak with doctor above provider. Dr Ruiz spoke with patient. It is this nurses understanding that pt was informed that she would no longer receive IV pain medication after today to be able to d/c home. Pt was treated with IV and PO pain medication. Pt did eat dinner, family brought in cracker barrel. Pt tolerating well at this time. Pt will continue to be monitored.
[2023-10-13 20:00] VITALS: O2SAT 98
[2023-10-13 20:29] LABS: Glucose Point of Care 106 mg/dl (65-105)
[2023-10-13 20:30] VITALS: BP 80/45; PULSE 84; RESP 18; TEMP 36.4; O2SAT 98
--- NOTE | 2023-10-13 20:35 | PC.NURSE ---
Spoke with Guerita MANN about patient low BP at this time. States to seema/c jesus and she will put in orders for her.
[2023-10-13] MEDS: LACTATED RINGERS 500 ML IV CONT (21:08)
[2023-10-13] MEDS: ATORVASTATIN 40 MG TABLET 80 MG PO (21:15)
[2023-10-13] MEDS: buPROPion HCL SR (12 HR) 150 MG TAB PO (21:15)
[2023-10-13 22:10] VITALS: BP 90/50
[2023-10-13] MEDS: LACTATED RINGERS 1,000 ML 100 ML IV CONT (23:40)
[2023-10-13] MEDS: traZODone HCL 50 MG TABLET 200 MG PO (23:40)
[2023-10-13] MEDS: ACETAMINOPHEN 325 MG TABLET 650 MG PO (23:41)
--- NOTE | 2023-10-14 04:56 | PC.NURSE ---
Morning BP 82/42. Notified Dr. Michaels at this time. New orders received for NS 1L Bolus.
[2023-10-14 05:28] VITALS: BP 82/42; PULSE 82; RESP 18; TEMP 36.3; O2SAT 99
[2023-10-14] MEDS: LEVOTHYROXINE SODIUM 100 MCG TABLET 200 MCG PO (06:10)
[2023-10-14] MEDS: SODIUM CHLORIDE 0.9% IV 1,000 ML 999 ML IV CONT (06:10)
[2023-10-14 06:58] LABS: Triglycerides 632 mg/dL (<150)
[2023-10-14 07:45] VITALS: BP 109/54
[2023-10-14 08:00] VITALS: O2SAT 99
[2023-10-14 08:00] LABS: Glucose Point of Care 191 mg/dl (65-105)
[2023-10-14] MEDS: ASPIRIN 81 MG ENTERIC TABLET PO (08:30)
[2023-10-14] MEDS: metFORMIN HCL 500 MG TABLET 1000 MG PO (08:30)
[2023-10-14] MEDS: TICAGRELOR 90 MG TABLET PO (08:31)
[2023-10-14] MEDS: FENOFIBRATE 160 MG TABLET PO (08:31)
[2023-10-14] MEDS: ENOXAPARIN 40 MG/0.4 ML SYRINGE SUB-Q (08:31)
[2023-10-14] MEDS: CITALOPRAM HYDROBROMIDE 20 MG TABLET 40 MG PO (08:31)
[2023-10-14] MEDS: INSULIN GLARGINE (*BKC) 100 UNITS/ML 25 UNITS SUB-Q (08:33)
--- NOTE | 2023-10-14 08:33 | PM.DS ---
DS: Admitting Diagnosis Discharge Date 10/14/23 Admitting Diagnosis DKA Hypertriglyceridemia abdominal pain chronic pancreatitis Chylomicronemia syndrome GERD DS: Discharge Diagnosis Discharge Diagnosis (1) DKA (diabetic ketoacidosis): Qualifiers: Diabetes mellitus complication detail: without coma Diabetes mellitus type: due to underlying condition Qualified Code(s): E08.10 - Diabetes mellitus due to underlying condition with ketoacidosis without coma Code(s): E11.10 - Type 2 diabetes mellitus with ketoacidosis without coma Status: Acute (2) Hypertriglyceridemia: Code(s): E78.1 - Pure hyperglyceridemia Status: Acute (3) Electrolyte imbalance: Code(s): E87.8 - Other disorders of electrolyte and fluid balance, not elsewhere classified Status: Acute (4) Abdominal pain: Qualifiers: Abdominal location: right upper quadrant Qualified Code(s): R10.11 - Right upper quadrant pain Code(s): R10.9 - Unspecified abdominal pain Status: Acute (5) Chronic pancreatitis: Qualifiers: Pancreatitis type: unspecified pancreatitis type Qualified Code(s): K86.1 - Other chronic pancreatitis Code(s): K86.1 - Other chronic pancreatitis Status: Acute (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 Status: Acute (7) GERD (gastroesophageal reflux disease): Qualifiers: Esophagitis presence: esophagitis presence not specified Qualified Code(s): K21.9 - Gastro-esophageal reflux disease without esophagitis Code(s): K21.9 - Gastro-esophageal reflux disease without esophagitis Status: Acute (8) Anxiety: Code(s): F41.9 - Anxiety disorder, unspecified Status: Acute DS: Summary Hospital Course Reason for hospitalization: DKA Hypertriglyceridemia abdominal pain chronic pancreatitis Chylomicronemia syndrome GERD Hospital Course: 10/13/23: This is a 47-year-old female who presented to the hospital on 10/09/2023 with complaints of abdominal pain, DKA. Patient was placed in ICU and on DKA protocol. Her blood sugar and anion gap corrected and patient was moved to an inpatient floor on 10/12/2023. During that time she also was found to have high triglycerides requiring plasmapheresis x2 on the and the . Labs from the showed a hemoglobin of 11.7, creatinine 1.2, blood sugars ranging 165-173, anion gap was 9. On examination today patient was complaining of abdominal pain 8/10. Patient is known to our hospital system and according to the nursing staff she always rates her pain at an 8/10. She has been given Dilaudid for pain control. We will go ahead and discontinue the Dilaudid for pain and start her on oral pain medication today. If she is feeling better tomorrow we can plan for discharge. 10/14/23: Patient still complaining of abdominal pain 8/10 and requesting dilaudid which was discontinued yesterday. Her triglycerides are stable and her DKA is resolved. VSS, she is afebrile, currently on room air. She is stable for discharge at this time. She will need to follow up with her PCP for ongoing abdominal pain. Final diagnosis: DKA, hypertriglyceridemia, Pancreatitis, Gastroparesis Status at Discharge Cognitive/behavioral status at discharge: Alert and oriented x3 Functional status at discharge: independent ambulation Overall status at discharge: patient is progressing back to baseline Time Spent with Patient Time attestation: Total time spent providing and/or coordinating discharge services: Time spent: Greater than 30 minutes Exam Narrative: General: In no acute distress, well nourished Head: atraumatic, no encephalopathy Eyes: EOMI, PERRLA, sclera clear ENT: moist mucous membranes, nasal passages clear Neck: supple, no JVD, no adenopathy, trachea midline Cardiac: Normal S1 and S2. RRR No murmur, gallops or friction rubs, peripheral pulses intact. Respir
[2023-10-14] MEDS: PANTOPRAZOLE SODIUM IV 40 MG VIAL IV PUSH (08:36)
--- NOTE | 2023-10-14 09:59 | P.PNNP_ITS ---
Progress Note: A&P Assessment and Plan (1) Hypertriglyceridemia: Code(s): E78.1 - Pure hyperglyceridemia Status: Chronic Assessment and Plan: * suspected elevated triglyceride levels * unable to verify triglyceride level due lipemic blood * already on insulin gtt * last session of plasmapheresis for this issue was 2 months ago * TG good today at 632. * no need for plasma exchange today * discharge up to hospitalist. (2) DKA (diabetic ketoacidosis): Qualifiers: Diabetes mellitus complication detail: without coma Diabetes mellitus type: due to underlying condition Qualified Code(s): E08.10 - Diabetes mellitus due to underlying condition with ketoacidosis without coma Code(s): E11.10 - Type 2 diabetes mellitus with ketoacidosis without coma Status: Acute Assessment and Plan: * as noted/suspected by testing in ER * s/p IVF resuscitation * Off IV Insulin * CO2 20 with an anion gap of only 8 (3) Abdominal pain: Qualifiers: Abdominal location: right upper quadrant Qualified Code(s): R10.11 - Right upper quadrant pain Code(s): R10.9 - Unspecified abdominal pain Status: Acute Assessment and Plan: * due to DKA versus known history of chronic pancreatitis versus combination of both(?) * CT of abd/pelvis without any acute pathology * stable sx Subjective Date/time seen: 10/14/23 09:59 Interval history: pt feels about the same. chronic belly issues. Exam Narrative: WDWN in NAD skin no rash Or subcu nodules head ncat lungs clear cor reg no rub abd BS+ minimally tender and soft ext no edema. Objective Data Vital Signs Vital Signs: Vital Signs - 24 hr 10/13/23 14:00 10/13/23 10:17 10/13/23 20:30 Temperature 97.6 F 97.6 F 97.6 F Pulse Rate 88 84 Respiratory Rate 18 18 Blood Pressure 112/64 80/45 L Pulse Oximetry 98 98 Oxygen Delivery 10/13/23 22:10 10/13/23 20:00 10/14/23 05:28 Temperature 97.3 F L Pulse Rate 82 Respiratory Rate 18 Blood Pressure 90/50 L 82/42 L Pulse Oximetry 98 99 Oxygen Delivery Room Air 10/14/23 07:45 Temperature Pulse Rate Respiratory Rate Blood Pressure 109/54 L Pulse Oximetry Oxygen Delivery Intake/Output Intake/Output: Intake & Output 10/11/23 10/12/23 10/13/23 10/14/23 23:59 23:59 23:59 23:59 Intake Total 2103 955 3854 1433.3 Output Total 2300 800 0 Balance -1292 -250 1320 1433.3 Meds/Results Medications: Active Medications Generic Name Dose Route Start Last Admin Trade Name Freq PRN Reason Stop Dose Admin Acetaminophen 650 mg 10/13/23 23:03 10/13/23 23:41 Acetaminophen 325 Mg Tablet PO 650 mg Q6H PRN Administration Mild Pain (1-3) or Fever Aspirin 81 mg 10/09/23 10:40 10/14/23 08:30 Aspirin 81 Mg Enteric Tablet PO 81 mg QAM RAPHAEL Administration Atorvastatin Calcium 80 mg 10/12/23 21:00 10/13/23 21:15 Atorvastatin 40 Mg Tablet PO 80 mg HS RAPHAEL Administration Bupropion HCl
--- NOTE | 2023-10-14 09:59 | PM.PNNEP ---
Progress Note: A&P Assessment and Plan (1) Hypertriglyceridemia: Code(s): E78.1 - Pure hyperglyceridemia Status: Chronic Assessment and Plan: suspected elevated triglyceride levels unable to verify triglyceride level due lipemic blood already on insulin gtt last session of plasmapheresis for this issue was 2 months ago TG good today at 632. no need for plasma exchange today discharge up to hospitalist. (2) DKA (diabetic ketoacidosis): Qualifiers: Diabetes mellitus complication detail: without coma Diabetes mellitus type: due to underlying condition Qualified Code(s): E08.10 - Diabetes mellitus due to underlying condition with ketoacidosis without coma Code(s): E11.10 - Type 2 diabetes mellitus with ketoacidosis without coma Status: Acute Assessment and Plan: as noted/suspected by testing in ER s/p IVF resuscitation Off IV Insulin CO2 20 with an anion gap of only 8 (3) Abdominal pain: Qualifiers: Abdominal location: right upper quadrant Qualified Code(s): R10.11 - Right upper quadrant pain Code(s): R10.9 - Unspecified abdominal pain Status: Acute Assessment and Plan: due to DKA versus known history of chronic pancreatitis versus combination of both(?) CT of abd/pelvis without any acute pathology stable sx Subjective Date/time seen: 10/14/23 09:59 Interval history: pt feels about the same. chronic belly issues. Exam Narrative: WDWN in NAD skin no rash Or subcu nodules head ncat lungs clear cor reg no rub abd BS+ minimally tender and soft ext no edema. Objective Data Vital Signs Vital Signs: Vital Signs - 24 hr 10/13/23 14:00 10/13/23 10:17 10/13/23 20:30 Temperature 97.6 F 97.6 F 97.6 F Pulse Rate 88 84 Respiratory Rate 18 18 Blood Pressure 112/64 80/45 L Pulse Oximetry 98 98 Oxygen Delivery 10/13/23 22:10 10/13/23 20:00 10/14/23 05:28 Temperature 97.3 F L Pulse Rate 82 Respiratory Rate 18 Blood Pressure 90/50 L 82/42 L Pulse Oximetry 98 99 Oxygen Delivery Room Air 10/14/23 07:45 Temperature Pulse Rate Respiratory Rate Blood Pressure 109/54 L Pulse Oximetry Oxygen Delivery Intake/Output Intake/Output: Intake & Output 06/14/24 10/12/23 10/13/23 10/14/23 23:59 23:59 23:59 23:59 Intake Total 7412 978 1495 1433.3 Output Total 2300 800 0 Balance -1292 -250 1320 1433.3 Meds/Results Medications: Active Medications Generic Name Dose Route Start Last Admin Trade Name Freq PRN Reason Stop Dose Admin Acetaminophen 650 mg 10/13/23 23:03 10/13/23 23:41 Acetaminophen 325 Mg Tablet PO 650 mg Q6H PRN Administration Mild Pain (1-3) or Fever Aspirin 81 mg 10/09/23 10:40 10/14/23 08:30 Aspirin 81 Mg Enteric Tablet PO 81 mg QAM RAPHAEL Administration Atorvastatin Calcium 80 mg 10/12/23 21:00 10/13/23 21:15 Atorvastatin 40 Mg Tablet PO 80 mg HS RAPHAEL Administration Bupropion HCl 150 mg 10/12/23 21:00 10/13/23 21:15 Bupropion Hcl Sr (12 Hr) 150 Mg Tab PO 150 mg HS RAPHAEL Administration Citalopram Hydrobromide 40 mg 10/12/23 09:00 10/14/23 08:31 Citalopram Hydrobromide 20 Mg Tablet PO 40 mg DAILY RAPHAEL Administration Dextrose 12.5 gm 10/11/23 10:33 Dextrose 50% 25 Gm/50 Ml Syringe IV PUSH PRN PRN Hypoglycemia Protocol Enoxaparin Sodium 40 mg 10/09/23 09:00 10/14/23 08:31 Enoxaparin 40 Mg/0.4 Ml Syringe SUB-Q 40 mg DAILY RAPHAEL Administration Fenofibrate 160 mg 10/12/23 09:00 10/14/23 08:31 Fenofibrate 160 Mg Tablet PO 160 mg DAILY RAPHAEL Administration Glucagon 1 mg 10/11/23 10:33 Glucagon For Inj 1 Mg Vial IM PRN PRN Hypoglycemia Protocol Glucose 15 gm 10/11/23 10:33 Glucose Oral Gel 15 Gm Of Glucse In 37.5 Gm Tube PO PRN PRN Hypoglycemia Protocol Dextrose 1,000 mls @ 100 mls/hr 10/11/23 10:33 Pio
[2023-10-14] MEDS: ONDANSETRON INJ 4 MG/2 ML VIAL IV PUSH ×2 (10:46→16:19)
[2023-10-14] MEDS: HYDROcodone/acetaminophen (*CRX) 5-325 MG TABLET 1 TAB PO ×2 (10:49→16:20)
[2023-10-14 11:33] LABS: Glucose Point of Care 142 mg/dl (65-105)
[2023-10-14 14:00] VITALS: BP 97/59; PULSE 89; RESP 14; TEMP 36.4; O2SAT 99
[2023-10-14 16:32] LABS: Glucose Point of Care 152 mg/dl (65-105)
--- NOTE | 2023-10-14 17:42 | PM.IMPN ---
Progress Note: A&P Assessment and Plan (1) DKA (diabetic ketoacidosis): Qualifiers: Diabetes mellitus complication detail: without coma Diabetes mellitus type: due to underlying condition Qualified Code(s): E08.10 - Diabetes mellitus due to underlying condition with ketoacidosis without coma Code(s): E11.10 - Type 2 diabetes mellitus with ketoacidosis without coma Status: Acute Assessment and Plan: 10/08: Patient presented with epigastric abdominal pain, nausea, vomiting, elevated blood sugars -found to be in DKA in the ER -was given 3 L IV fluids -started on insulin infusion per DKA protocol in the ER -continue insulin infusion as unable to get CO2 resulted on her blood due to being lipemic. -hemoglobin A1c was also not able to be resulted due to the lipemic blood -10/10: Patient transition to long-acting insulin, Accu-Cheks and sliding scale insulin as her anion gap is closed, also started her on carb consistent diabetic diet. -10/10: hemoglobin A1c was finally resulted at 8.0 this admission 10/13/23: Resolved, anion gap is closed, blood sugars ranging 147-184 (2) Hypertriglyceridemia: Code(s): E78.1 - Pure hyperglyceridemia Status: Acute Assessment and Plan: Patient has a history of hypertriglyceridemia, the blood drawn was lipemic, leading for us to think that she has high triglyceride levels -continue insulin infusion for now -nephrology has been consulted for plasmapheresis as the patient states that the plasma phoresis health with a hypertriglyceridemia and she has been getting at as outpatient. Last plasmapheresis was 2 months ago 10/09: Started 1st session of plasmapheresis 10/10: Triglyceride finally resulted in 1194, lipase of 35 10/11: Triglyceride levels are 640 this morning Plasmapheresis done on 10/09 and 10/10 per Nephrology 10/13/23: Triglycerides 692, no more plasmapheresis at this time Nephrology following (3) Electrolyte imbalance: Code(s): E87.8 - Other disorders of electrolyte and fluid balance, not elsewhere classified Status: Acute Assessment and Plan: 10/13/23: Magnesium 2.0, no replacement needed Continue to trend (4) Abdominal pain: Qualifiers: Abdominal location: right upper quadrant Qualified Code(s): R10.11 - Right upper quadrant pain Code(s): R10.9 - Unspecified abdominal pain Status: Acute Assessment and Plan: Could be related to DKA, chronic pancreatitis -continue p.r.n. pain meds -added p.r.n. Ativan which she takes at home 10/08: CT scan of the abdomen and pelvis with no significant abnormalities 10/13/23: Discontinue dilaudid pain medication and start oral now that patient is able to eat and drink Patient rates pain 8/10 on a regular basis (5) Chronic pancreatitis: Qualifiers: Pancreatitis type: unspecified pancreatitis type Qualified Code(s): K86.1 - Other chronic pancreatitis Code(s): K86.1 - Other chronic pancreatitis Status: Acute Assessment and Plan: History of chronic pancreatitis -started Creon which patient takes at home. 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 Status: Acute Assessment and Plan: Hypertriglyceridemia, started on fenofibrate, and atorvastatin 10/13/2023: Continue with current treatment plan (7) GERD (gastroesophageal reflux disease): Qualifiers: Esophagitis presence: esophagitis presence not specified Qualified Code(s): K21.9 - Gastro-esophageal reflux disease without esophagitis Code(s): K21.9 - Gastro-esophageal reflux disease without esophagitis Status: Acute Assessment and Plan: Continue Protonix IV q.12.H 10/13/2023: Continue with current treatment plan (8) Anxiety: Code(s): F41.9 - Anxiety disorder, unspecified Status: Acute Asse
[2023-10-16 07:57] LABS: Reference Lab Test Result 6585
[2023-10-16 08:30] LABS: Reference Lab Test Result >10000
[2023-10-16 08:31] LABS: Reference Lab Test Result 54
[2023-10-16 08:47] LABS: Reference Lab Test Result 54
[2023-10-16 08:48] LABS: Reference Lab Test Result >10000
[2023-10-16 08:49] LABS: Reference Lab Test Result 9.7
[2023-10-16 10:20] LABS: Reference Lab Test Result 147
== END 2023-10-14 16:47 | disposition home or self-care (01) | DRG 642 ==
LOC: ANHED 04:22 → ANHICU 05:34 → ANH3MEDSUR 10-12 15:43
PROVIDERS: Internal Medicine; Internal Medicine Nephrology; Physician Assistant; Admitting Provider Internal Medicine; Emergency Provider Preventive Medicine Aerospace Medicine; PCP Physician Assistant; Visit Provider Nurse Practitioner Acute Care
DX: E78.3 Hyperchylomicronemia (principal); E11.10 Type 2 diabetes mellitus with ketoacidosis without coma; E87.1 Hypo-osmolality and hyponatremia; K86.1 Other chronic pancreatitis; E78.1 Pure hyperglyceridemia; I25.10 Atherosclerotic heart disease of native coronary artery without angina pectoris; E78.6 Lipoprotein deficiency; E83.42 Hypomagnesemia; E06.3 Autoimmune thyroiditis; E28.2 Polycystic ovarian syndrome; K21.9 Gastro-esophageal reflux disease without esophagitis; F17.210 Nicotine dependence, cigarettes, uncomplicated; F41.9 Anxiety disorder, unspecified; Z95.5 Presence of coronary angioplasty implant and graft; Z79.01 Long term (current) use of anticoagulants; Z79.4 Long term (current) use of insulin; Z79.82 Long term (current) use of aspirin
CPT/HCPCS: 36415; 36514; 71045; 74177; 80048; 80053; 81003; 81025; 82803; 82948; 83036; 83605; 83690; 83735; 84100; 84478; 84484; 85025; 85610; 85730; 87641; 93005; 96361; 96365; 96366; 96375; 96376; 99285; A9270; C9113; G0378; J0613; J0780; J1170; J1200; J1644; J1650; J1815; J2060; J2270; J2405; J3010; J3475; J3480; J7030; J7040; J7120; P9045; Q9967

== ENCOUNTER 2023-11-13 14:35 | Outpatient (CLI) | payer MEDICARE, SELFPAY ==
[2023-11-13 15:49] LABS: Triglycerides > 2625 mg/dL (<150)
[2023-11-15 10:38] LABS: C-Peptide 1.44 ng/mL (0.80-3.85)
[2023-11-20 22:48] LABS: Islet Cell Antibody Screen NEGATIVE (NEGATIVE)
== END 2023-11-13 14:36 | disposition home or self-care (01) ==
LOC: ANHLAB 14:39
PROVIDERS: PCP Physician Assistant; Visit Provider Nurse Practitioner
DX: K86.1 Other chronic pancreatitis (principal); E11.9 Type 2 diabetes mellitus without complications; E78.1 Pure hyperglyceridemia; E78.3 Hyperchylomicronemia
CPT/HCPCS: 36415; 84478; 84681; 86337; 86341

== ENCOUNTER 2023-11-19 19:54 | Inpatient (IN) | payer MEDICARE, SELFPAY ==
[2023-11-19 20:11] VITALS: BP 111/71; PULSE 103; RESP 20; TEMP 36.4; O2SAT 99
[2023-11-19 20:45] LABS: Basophils Percent Auto 0.4 % (0.2-1.2); Eosinophils Absolute Auto 0.1 K/mm3 (0-0.3); Hematocrit 39.7 % (37.0-47.0); Hemoglobin 13.6 g/dL (12.0-15.0); Immature Granulocyte Absolute 0.08 K/mm3 (0.00-0.031); Immature Granulocyte Percent A 0.8 % (0-0.5); Lymphocytes Absolute Auto 2.21 K/mm3 (0.9-3.2); Lymphocytes Percent Auto 22.6 % (18.3-44.2); Mean Corpuscular HGB Conc 34.3 g/dl (32-36); Mean Corpuscular Hemoglobin 31.1 pg (26-34); Mean Corpuscular Volume 90.8 fl (80-100); Mean Platelet Volume 9.3 fl (7.4-10.4); Monocytes Absolute Auto 0.6 K/mm3 (0.1-0.6); Monocytes Percent Auto 6.2 % (2.6-8.5); Neutrophils Absolute Auto 6.7 K/mm3 (1.3-6.7); Platelet Count Result 323 k/mm3 (150-375); Red Blood Count 4.37 M/mm3 (4.2-5.4); Red Cell Distribution Width 14.6 % (11.5-14.5); White Blood Count 9.8 K/mm3 (4.5-10.0)
[2023-11-19 20:51] LABS: Albumin Level 4.6 g/dL (3.5-5.1)
[2023-11-19 20:54] LABS: Alanine Aminotransferase 19 U/L (6-35); Alkaline Phosphatase 85 U/L (38-126); Anion Gap 15 mmol/L (4-12); Aspartate Amino Transferase 23 U/L (14-36); Bilirubin,Total 0.5 mg/dL (0.2-1.3); Blood Urea Nitrogen 14 mg/dL (7-17); Calcium 9.1 mg/dL (8.4-10.2); Carbon Dioxide 24 mmol/L (22-30); Chloride 98 mmol/L (98-107); Estimated CRCL calculation 127 ml/min; Estimated Glomerular Filt Rate > 60; Glucose 203 mg/dL (65-110); Lipase 107 U/L (23-300); Potassium 3.9 mmol/L (3.4-5.0); Sodium 137 mmol/L (137-145)
[2023-11-19 21:30] LABS: Triglycerides 2241 mg/dL (<150)
[2023-11-19 21:38] LABS: Appearance Urine Clear (Clear); Bilirubin Urine Negative (Negative); Blood Urine Negative (Negative); Color Urine Yellow (Yellow); Glucose Urine UA 1+ mg/dL (Negative); Ketones Urine Trace mg/dL (Negative); Leukocyte Esterase Ur Negative LEU/UL (Negative); Nitrate Urine Negative (Negative); Protein Urine Negative (Negative); Specific Grav Ur 1.019 (1.001-1.035); pH Urine 6.5 (5.0-9.0)
[2023-11-19 21:44] LABS: Add Urine Microscopic? YES
[2023-11-20] VITALS (28 sets, daily range): BP systolic 67–131; BP diastolic 40–83; PULSE 72–89; RESP 11–18; TEMP 36.6–36.9; O2SAT 95–100; BMI 29.0
[2023-11-20 00:21] LABS: Pregnancy On Board Control Positive; Urine Pregnancy Test Negative
[2023-11-20 01:23] LABS: Anion Gap 11 mmol/L (4-12); Blood Urea Nitrogen 18 mg/dL (7-17); Carbon Dioxide 25 mmol/L (22-30); Chloride 101 mmol/L (98-107); Estimated CRCL calculation 127 ml/min; Estimated Glomerular Filt Rate > 60; Glucose 136 mg/dL (65-110); Potassium 3.8 mmol/L (3.4-5.0); Sodium 137 mmol/L (137-145)
[2023-11-20 01:39] LABS: Anion Gap 12 mmol/L (4-12); Blood Urea Nitrogen 18 mg/dL (7-17); Carbon Dioxide 24 mmol/L (22-30); Chloride 100 mmol/L (98-107); Estimated CRCL calculation 127 ml/min; Estimated Glomerular Filt Rate > 60; Glucose 133 mg/dL (65-110); Sodium 136 mmol/L (137-145)
--- NOTE | 2023-11-20 01:56 | ED.GENADULT ---
HPI - General Adult General Chief complaint: Recheck/Abnormal Lab/Rx Stated complaint: my pancreas is acting up and my hr is high Time Seen by Provider: 11/20/23 00:48 History of Present Illness HPI narrative: This is a 47-year-old female with history of chronic pancreatitis due to hypertriglyceridemia presenting for her typical abdominal pain. Pain started 2 days ago not acutely worse today. She has taken her home regimen of oxycodone and [place] with no relief. Patient also has nausea. No other symptoms. Patient has recently been started on an insulin pump in an attempt to prevent her numerous hospitalizations. Related Data Home Medications Medication Instructions Recorded Confirmed levothyroxine 200 mcg tablet 200 mcg PO DAILY 07/21/23 11/13/23 [id number] 2 cap PO TIDWMEAL 07/22/23 11/13/23 36,000-114,000-180,000 unit capsule,delay rel (Creon) citalopram 40 mg tablet 40 mg PO DAILY 08/31/23 11/13/23 atorvastatin 80 mg tablet 80 mg PO HS 10/09/23 11/13/23 bupropion HCl 150 mg tablet,12 hr 150 mg PO HS 10/09/23 11/13/23 sustained-release valacyclovir 1 gram tablet 2,000 mg PO Q12H PRN fever blisters 10/09/23 11/13/23 Allergies Allergy/AdvReac Type Severity Reaction Status Date / Time adhesive tape Allergy Mild Rash Verified 11/13/23 10:26 [place] pepper [green pepper] Allergy Unknown Hives Verified 11/13/23 10:26 sucralose Allergy Migraine Verified 11/13/23 10:26 [From Splenda (sucralose)] Artificial Sweetners AdvReac Migraine Uncoded 11/13/23 10:26 [facility] Past Medical History Medical History Abnormal CT scan, esophagus Allergic rhinitis Anxiety Chronic pancreatitis (~09/02/23) Chylomicronemia syndrome Colon cancer screening GERD (gastroesophageal reflux disease) Headache 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 Hyperlipemia Hypertriglyceridemia Hypertriglyceridemia 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 Nausea Occult blood in stools PCOS (polycystic ovarian syndrome) Port-A-Cath in place Thyroid disorder Surgical History Surgical History History of appendectomy History of conization of cervix History of dilatation and curettage History of endometrial ablation History of exploratory laparotomy History of loop electrical excision procedure (LEEP) History of partial hysterectomy History of tonsillectomy History of tubal ligation History of wisdom tooth extraction Family History Family History Father Alcohol abuse Hypertension Mother Hypothyroid Cerebrovascular accident Grandparent Skin cancer Colon cancer Heart disease Hypothyroid Cerebrovascular accident Sibling Hypothyroid Kidney disorder Hypertension Autoimmune disorder Mother Family history of thyroid disease Family history of diabetes mellitus in first degree relative Father Family history of diabetes mellitus in first degree relative Patient's father is Other Diabetes mellitus Family history of alcoholism Family history of cardiovascular disease Family history of kidney disease Social History Social History Social History: She smokes a pack a day for the past 30 years. No alcohol or drug use. She has 2 dogs and a cat at home. Surrogate medical decision maker: José Miguel Jones, spouse. Code status: Full Smoking packs per day: 0.25 Smoking cigarettes per day: 5.0 Years smoked: 30 Smoking pack-years: 7.50 Smoking status: Current every day smoker Tobacco type: cigarettes Second hand tobacco smoke exposure: No Alcohol intake: never Drinks per week: 0 Substance use: current Substance use type: prescription drug Do You Feel Safe in your Home?: Yes Lack of Transportation: No Lack of Food: Never True Current Housing: I Have Housing Concerned About Future Housing: No Difficulty Paying Gas/Electric Bills: No Difficulty Paying for Meds: No Currently Unemployed: No Education: Decline to Answer Difficulty w/ Childcare or Family Care: No Living arrangements: with family Spiritual care concerns: No Exam Narrative: APPEARANCE: No apparent distress. Head: atraumatic. EYES: EOMI, NOSE: Atraumatic NECK: Trachea midline RESPIRATORY: No increased rate of breathing CARDIOVASCULAR: RRR, ABDOMINAL: Tenderness palpation in the epigastric area without MUSCULOSKELETAl: No obvious deformities NEURO: Alert. Moving 4/4 extremities SKIN:: Warm, dry. Normal color PSYCHIATRIC: Normal affect Course Vital Signs Vital signs: Vital Signs Temperature 97.6 F 11/19/23 20:11 Pulse Rate 103 H 11/19/23 20:11 Respiratory Rate 20 11/19/23 20:11 Blood Pressure 111/71 11/19/23 20:11 Pulse Oximetry 99 11/19/23 20:11 Temperature 97.6 F 11/19/23 20:11 Pulse Rate 84 11/20/23 02:09 Respiratory Rate 13 11/20/23 02:09 Blood Pressure 125/64 11/20/23 02:09 Pulse Oximetry 97 11/20/23 00:31 Medical Decision Making MDM Narrative Medical decision making narrative: -Course: 47-year-old with chronic pancreatitis due to hypertriglyceridemia with her typical presentation. She has been started on insulin pump which has been turned off. Patient was started on IV insulin given pain control and nausea control. Patient will be placed in the ICU for further management. -DDX includes but is not limited to: Chronic pancreatitis, hypertriglyceridemia -Co-morbidities complicating care: Chronic pancreatitis, hydrated with strides -Independent interpretation of studies: Labs reviewed. Triglycerides 2200 -Discussion of Management/Consultants: Jonel-hospitalist, Dr. Castellano - Financial Services Professional Procedures: 20 gauge ultrasound IV placed in left forearm under ultrasound guidance by MD to difficult iv access -Interventions: Insulin at 8.4 units/hour, D5/NS/ w/ 40 mEq potassium 150cc/hr, 2 mg Dilaudid, zofran -Shared decision making / Disposition: Admitted Vital Signs Vital Signs: Vital Signs Temperature 97.6 F 11/19/23 20:11 Pulse Rate 103 H 11/19/23 20:11 Respiratory Rate 20 11/19/23 20:11 Blood Pressure 111/71 11/19/23 20:11 Pulse Oximetry 99 11/19/23 20:11 Temperature 97.6 F 11/19/23 20:11 Pulse Rate 84 11/20/23 02:09 Respiratory Rate 13 11/20/23 02:09 Blood Pressure 125/64 11/20/23 02:09 Pulse Oximetry 97 11/20/23 00:31 Lab Data 11/19/23 20:17 11/20/23 01:20 Labs: Lab Results 11/19/23 11/19/23 11/20/23 Range/Units 20:17 21:24 01:04 WBC 9.8 (4.5-10.0) K/mm3 RBC 4.37 (4.2-5.4) M/mm3 Hgb 13.6 (12.0-15.0) g/dL Hct 39.7 (37.0-47.0) % MCV 90.8 (80-100) fl MCH 31.1 (26-34) pg MCHC 34.3 (32-36) g/dl RDW 14.6 H (11.5-14.5) % Plt Count 323 (150-375) k/mm3 MPV 9.3 (7.4-10.4) fl Immature Gran % (Auto) 0.8 H (0-0.5) % Neut % (Auto) 69.0 (45.5-73.1) % Lymph % (Auto) 22.6 (18.3-44.2) % [place] % (Auto) 6.2 (2.6-8.5) % Eos % (Auto) 1.0 (0-4.4) % Baso % (Auto) 0.4 (0.2-1.2) % Lymph # (Auto) 2.21 (0.9-3.2) K/mm3 [place] # (Auto) 0.6 (0.1-0.6) K/mm3 Eos # (Auto) 0.1 (0-0.3) K/mm3 Baso # (Auto) 0.0 (0.0-0.1) K/mm3 Abs Immat Gran (auto) 0.08 H (0.00-0.031) K/mm3 Absolute Neuts (auto) 6.7 (1.3-6.7) K/mm3 Absolute Nucleated RBC 0.000 (0.0-0.012) K/mm3 Nucleated RBC % 0.0 (0.0-0.2) % Sodium 137 137 (137-145) mmol/L Potassium 3.9 3.8 (3.4-5.0) mmol/L Chloride 98 101 (98-107) mmol/L Carbon Dioxide 24 25 (22-30) mmol/L Anion Gap 15 H 11 (4-12) mmol/L BUN 14 D 18 H (7-17) mg/dL Creatinine 0.50 L 0.50 L (0.7-1.0) mg/dL Estim Creat Clear Calc 127 127 ml/min Estimated GFR > 60 > 60 (59 - ) Glucose 203 H 136 H (65-110) mg/dL POC Capillary Glucose (65-105) mg/dl Calcium 9.1 9.0 (8.4-10.2) mg/dL Total Bilirubin 0.5 (0.2-1.3) mg/dL AST 23 (14-36) U/L ALT 19 (6-35) U/L Alkaline Phosphatase 85 (38-126) U/L Total Protein 8.0 (6.3-8.2) g/dL Albumin 4.6 (3.5-5.1) g/dL Triglycerides 2241 H (<150) mg/dL Lipase 107 (23-300) U/L Urine Color Yellow (Yellow) Urine Appearance Clear (Clear) Urine pH 6.5 (5.0-9.0) Ur Specific [place] 1.019 (1.001-1.035) Urine Protein Negative (Negative) mg/dL Urine Glucose (UA) 1+ H (Negative) mg/dL Urine Ketones Trace H (Negative) mg/dL Ur Blood (Man) Negative (Negative) Urine Nitrate Negative (Negative) Urine Bilirubin Negative (Negative) Urine Urobilinogen 1.0 (<2.0) mg/dL Leukocyte Esterase Rfl Negative (Negative) STEPHEN/UL Urine Test Negative 11/20/23 11/20/23 11/20/23 Range/Units 01:20 02:42 03:30 WBC (4.5-10.0) K/mm3 RBC (4.2-5.4) M/mm3 Hgb (12.0-15.0) g/dL Hct (37.0-47.0) % MCV (80-100) fl MCH (26-34) pg MCHC (32-36) g/dl RDW (11.5-14.5) % Plt Count (150-375) k/mm3 MPV (7.4-10.4) fl Immature Gran % (Auto) (0-0.5) % Neut % (Auto) (45.5-73.1) % Lymph % (Auto) (18.3-44.2) % [place] % (Auto) (2.6-8.5) % Eos % (Auto) (0-4.4) % Baso % (Auto) (0.2-1.2) % Lymph # (Auto) (0.9-3.2) K/mm3 [place] # (Auto) (0.1-0.6) K/mm3 Eos # (Auto) (0-0.3) K/mm3 Baso # (Auto) (0.0-0.1) K/mm3 Abs Immat Gran (auto) (0.00-0.031) K/mm3 Absolute Neuts (auto) (1.3-6.7) K/mm3 Absolute Nucleated RBC (0.0-0.012) K/mm3 Nucleated RBC % (0.0-0.2) % Sodium 136 L (137-145) mmol/L Potassium 4.0 (3.4-5.0) mmol/L Chloride 100 (98-107) mmol/L Carbon Dioxide 24 (22-30) mmol/L Anion Gap 12 (4-12) mmol/L BUN 18 H (7-17) mg/dL Creatinine 0.50 L (0.7-1.0) mg/dL Estim Creat Clear Calc 127 ml/min Estimated GFR > 60 (59 - ) Glucose 133 H (65-110) mg/dL POC Capillary Glucose 139 H 130 H (65-105) mg/dl Calcium 9.0 (8.4-10.2) mg/dL Total Bilirubin (0.2-1.3) mg/dL AST (14-36) U/L ALT (6-35) U/L Alkaline Phosphatase (38-126) U/L Total Protein (6.3-8.2) g/dL Albumin (3.5-5.1) g/dL Triglycerides (<150) mg/dL Lipase (23-300) U/L Urine Color (Yellow) Urine Appearance (Clear) Urine pH (5.0-9.0) Ur Specific [place] (1.001-1.035) Urine Protein (Negative) mg/dL Urine Glucose (UA) (Negative) mg/dL Urine Ketones (Negative) mg/dL Ur Blood (Man) (Negative) Urine Nitrate (Negative) Urine Bilirubin (Negative) Urine Urobilinogen (<2.0) mg/dL Leukocyte Esterase Rfl (Negative) STEPHEN/UL Urine Test Critical Care Time Critical Care Time Critical Care Time: Yes Total Critical Care Time: 35 Discharge Plan Discharge Clinical Impression: Chylomicronemia syndrome, Chronic pancreatitis Patient Disposition: Home, Self-Care Condition: Stable Instructions: Antibiotic Form Prescriptions: No Action metformin 500 mg tablet 1,000 mg PO BID Qty: 180 1RF Rx Instructions: with morning & evening meals metoprolol succinate 25 mg tablet extended release 24 hr 12.5 mg PO DAILY Qty: 90 1RF hydrocodone-acetaminophen 5-325 mg tablet 1 tablet PO Q6H PRN (Reason: Pain Rated 6 Or Greater) Qty: 10 0RF pantoprazole [Protonix] 40 mg tablet,delayed release (DR/EC) 40 mg PO BID Qty: 30 0RF levothyroxine 200 mcg tablet 200 mcg PO DAILY Creon 36,000-114,000- 180,000 unit capsule,delayed release(DR/EC) 2 cap PO TIDWMEAL Rx Instructions: Take 2 capsules with meals and 1 capsule with any snacks. aspirin 81 mg Tablet,Delayed Release (Dr/Ec) 81 mg PO QAM Qty: 30 0RF citalopram 40 mg tablet 40 mg PO DAILY Rx Instructions: TAKE 1 TABLET BY MOUTH EVERY DAY bupropion HCl 150 mg tablet sustained-release 12 hr 150 mg PO HS atorvastatin 80 mg tablet 80 mg PO HS valacyclovir 1 gram tablet 2,000 mg PO Q12H PRN (Reason: fever blisters) ondansetron 4 mg tablet,disintegrating 4 mg PO Q8H PRN (Reason: nausea and vomiting) Qty: 30 0RF fenofibrate nanocrystallized 145 mg tablet 145 mg PO DAILY Qty: 90 1RF lorazepam 1 mg tablet 1 mg PO QHS PRN (Reason: sleep) Qty: 90 0RF losartan 25 mg tablet 25 mg PO DAILY Qty: 90 0RF Brilinta 90 mg tablet 90 mg PO BID Qty: 180 0RF trazodone 100 mg tablet 200 mg PO HS Qty: 90 0RF insulin aspart U-100 [Novolog U-100 Insulin aspart] 100 unit/mL solution 1 sliding scale dose subcut USEASDIRECTD MDD 60 Qty: 60 0RF Rx Instructions: inuslin pump (DME) pen needle, diabetic [BD Ultra-Fine Diandra Pen Needle] 32 gauge x 5/32 needle See Rx Instructions .ROUTE .MEDSUPPLY Qty: 1200 12RF Rx Instructions: 4 times daily insulin degludec [Tresiba FlexTouch U-200] 200 unit/mL (3 mL) insulin pen 34 unit SUBCUT HS Qty: 3 0RF Follow-up/Referrals: Emi,Guerrero Owens PALeoC [Primary Care Provider] -
--- NOTE | 2023-11-20 02:02 | ECG_ITS ---
Test Date: 2023-11-20 03:12:04 Measurements Intervals [place] Rate: 76 P: 40 [place]: 174 QRS: 27 QRSD: 97 T: 1 QT: 394 QTc: 445 Interpretive Statements SINUS RHYTHM BORDERLINE ST-T WAVE ABNORMALITY- ANT/INF LEADS BORDERLINE ECG Compared to ECG 10/09/2023 01:22:48 NO SIGNIFICANT CHANGE Electronically Signed On 11-20-2023 06:29:30 CDT by Baron Bowers D.O.
[2023-11-20] MEDS: ONDANSETRON INJ 4 MG/2 ML VIAL IV PUSH ×3 (02:03→20:05)
[2023-11-20] MEDS: KETOROLAC 15 MG/ML VIAL (*BKC) IV PUSH (02:05)
[2023-11-20] MEDS: HYDROmorphone HCL INJ (*CRX) 1 MG/ML SYR 2 MG IV PUSH ×2 (02:07→05:06)
[2023-11-20] MEDS: INSULIN HUMAN REGULAR (*BKC) 100 UNITS in SODIUM CHLORIDE 0.9% IV 99 ML 8.5 UNITS IV CONT (02:44)
[2023-11-20] MEDS: KCL 40 MEQ/D5/0.9% SOD CHL 1,000 ML 150 ML IV CONT (03:01)
[2023-11-20 03:34] LABS: Glucose Point of Care 130 mg/dl (65-105)
[2023-11-20 03:34] LABS: Glucose Point of Care 139 mg/dl (65-105)
[2023-11-20 04:37] LABS: Glucose Point of Care 86 mg/dl (65-105)
[2023-11-20] MEDS: SODIUM CHLORIDE 0.9% IV 2,000 ML 999 ML IV CONT (04:39)
[2023-11-20] MEDS: DEXTROSE 50% 25 GM/50 ML SYRINGE IV PUSH ×2 (04:40→05:40)
[2023-11-20] MEDS: POTASSIUM CHLORIDE INJ 40 MEQ in DEXTROSE 10% 1,000 ML 50 ML IV CONT (05:05)
[2023-11-20 05:16] LABS: Glucose Point of Care 171 mg/dl (65-105)
--- NOTE | 2023-11-20 05:28 | ADMGEN ---
This patient, Casandra Jones, was admitted to Intensive Care Unit-2. Patient/family oriented to hospital policies and general routines including ID bracelet, bed and alarms, visiting hours, pain management, procedures, bathroom and other care routines, personal items, smoking policy, room service/diet, and visiting hours. Information on how to activate the Rapid Response Team has been discussed. Patient/Family are encouraged to report perceived risks to care and to ask questions if they do not understand what they are told or what they should do.
[2023-11-20 06:04] LABS: Anion Gap 7 mmol/L (4-12); Blood Urea Nitrogen 18 mg/dL (7-17); Calcium 8.2 mg/dL (8.4-10.2); Carbon Dioxide 28 mmol/L (22-30); Chloride 106 mmol/L (98-107); Estimated CRCL calculation 125 ml/min; Estimated Glomerular Filt Rate > 60; Glucose 45 mg/dL (65-110); Potassium 3.4 mmol/L (3.4-5.0); Sodium 141 mmol/L (137-145)
[2023-11-20 06:15] LABS: Glucose Point of Care 68 mg/dl (65-105)
[2023-11-20 06:15] LABS: Glucose Point of Care 159 mg/dl (65-105)
[2023-11-20 06:15] LABS: Glucose Point of Care 76 mg/dl (65-105)
--- NOTE | 2023-11-20 06:30 | PC.NURSE ---
Patient's blood glucose [address] Remy notified and received orders to decrease insulin drip to 4 units/hr and increase D10 with 40 K to 100 mL/hr. Patient's blood glucose rechecked at 0545 and resulted at 68. Hypoglycemia protocol ordered and patient received 1/2 amp of D50. Blood glucose rechecked at 0612 and resulted at 159. Will continue to monitor.
[2023-11-20 06:47] LABS: Glucose Point of Care 120 mg/dl (65-105)
[2023-11-20] MEDS: diphenhydrAMINE HCl INJ 50 MG/ML VIAL 25 MG IV PUSH ×3 (07:38→21:29)
[2023-11-20 07:40] LABS: MRSA (PCR) NOT DETECTED (NOT DETECTE)
[2023-11-20 07:44] LABS: Glucose Point of Care 119 mg/dl (65-105)
--- NOTE | 2023-11-20 08:34 | P.CONIN_ITS ---
Assessment and Plan Assessment and plan (1) Abdominal pain: Code(s): R10.9 - Unspecified abdominal pain Status: Acute Assessment and Plan: Patient presented with abdominal pain, nausea it to chronic pancreatitis and hypertriglyceridemia. She has had multiple admissions with similar complaints. Triglyceride levels are > 2000 -pain control with Dilaudid for now -Zofran for nausea/emesis (2) Hypertriglyceridemia: Code(s): E78.1 - Pure hyperglyceridemia Status: Acute Assessment and Plan: Elevated triglyceride levels on admission > 2000 -continue insulin infusion, monitor blood sugars closely -patient on D10 infusion, for low blood sugars -will continue atorvastatin, fenofibrate -will consult nephrology for plasmapheresis (3) Chronic pancreatitis: Onset Date: ~09/02/23 Qualifiers: Pancreatitis type: other Qualified Code(s): K86.1 - Other chronic pancreatitis Code(s): K86.1 - Other chronic pancreatitis Status: Chronic Assessment and Plan: Continue Creon -lipase was 107 (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 Status: Acute Assessment and Plan: Continue fenofibrate and atorvastatin (5) GERD (gastroesophageal reflux disease): Qualifiers: Esophagitis presence: esophagitis presence not specified Qualified Code(s): K21.9 - Gastro-esophageal reflux disease without esophagitis Code(s): K21.9 - Gastro-esophageal reflux disease without esophagitis Status: Acute Assessment and Plan: Protonix q.12 hours (6) CAD (coronary artery disease): Code(s): I25.10 - Atherosclerotic heart disease of [place] coronary artery without angina pectoris Status: Chronic Assessment and Plan: Patient with history of coronary stents x3 at [facility] in June 2023 -continue Brilinta, aspirin, atorvastatin -will hold metoprolol and lisinopril since blood pressures are borderline (7) Insulin dependent diabetes mellitus: Status: Chronic Assessment and Plan: Patient recently started on insulin pump -currently on insulin infusion for hypertriglyceridemia along with D10 infusion for hypoglycemia -once patient receives plasmapheresis will discontinue insulin infusion Plan DVT prophylaxis: Lovenox Stress ulcer prophylaxis: Protonix Nutrition: Ice chips and sips with medications Code Status: Full code Critical Care Time Spent: 47 minutes Discussed with patient updated with her condition and plan of care. She is aware that she will be getting plasmapheresis today Due to a high probability of clinically significant, life threatening deterioration, the patient required my highest level of preparedness to intervene emergently and I personally spent this critical care time directly and personally managing the patient. This critical care time included obtaining a history; examining the patient; pulse oximetry; ordering and review of studies; arranging urgent treatment with development of a management plan; evaluation of patient's response to treatment; frequent reassessment; and discussions with other providers. It was exclusive of separately billable procedures and treating other patients and teaching time. Please see Assessment and Plan section and the rest of the note for further information on patient assessment and treatment This dictation may have been done utilizing a voice recognition system. Attempts have been made to correct errors. However, there may be uncorrected grammatical, spelling, and recognitions errors present. Academic Administrator Consult Note Consult date: 11/20/23 Reason for consult: Reason for consult: Abdominal pain, nausea, vomiting, hyperglycemia, hyp ertriglyceridemia HPI: Casandra Jones is a 47 year old female with significant past medical history of chronic pancreatitis, Chylomicronemia syndrome, GERD, hypertriglyceridemia, hypothyroidism, insulin-dependent diabetes, lipoprotein deficiency, polycystic ovarian syndrome, Port-A-Cath x2, coronary artery disease status post stent x3 in June 2023 at [facility], history of multiple plasmapheresis as outpatient and inpatient presented to the ED on 11/20/2023 with complains of worsening abdominal pain with started 2 days back along with nausea and vomiting. She was recently started on insulin pump 2 days back. In the ER patient was hemodynamically stable. WBC count, hemoglobin and platelets were normal patient had electrolytes and creatinine were stable, blood sugars were within normal limits. Triglycerides were 2241, lipase was 107. UA was negative for nitrates and leukocyte esterase, urine test was negative, LFTs wit hin normal limits. Patient was given 2 L IV fluid bolus, started on insulin infusion for hypertriglyceridemia, nephrology was consulted for plasmapheresis. Patient was transferred to the ICU for further management since she is on insulin infusion Patient seen and examined this morning, well known to me from September 2023 which she was here for similar reasons. Patient is awake, alert, complains of abdominal pain, nausea and itching then requesting for pain medications and Benadryl. Patient stated that she has been started on insulin pump 2 days back. She also has an appointment with [facility] for coronary angiogram and stent placement, she states that in June she had 3 stents placed in her coronary arteries at [facility], and they asked her to come at a later date for the 4th stent. 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 Nausea Occult blood in stools PCOS (polycystic ovarian syndrome) Port-A-Cath in place Thyroid disorder Surgical History Surgical History History of appendectomy History of conization of cervix History of dilatation and curettage History of endometrial ablation History of exploratory laparotomy History of loop electrical excision procedure (LEEP) History of partial hysterectomy History of tonsillectomy History of tubal ligation History of wisdom tooth extraction Family History Family History Father Alcohol abuse Hypertension Mother Hypothyroid Cerebrovascular accident Grandparent Skin cancer Colon cancer Heart disease Hypothyroid Cerebrovascular accident Sibling Hypothyroid Kidney disorder Hypertension Autoimmune disorder Mother Family history of thyroid disease Family history of diabetes mellitus in first degree relative Father Family history of diabetes mellitus in first degree relative Patient's father is Other Diabetes mellitus Family history of alcoholism Family history of cardiovascular disease Family history of kidney disease Social History Social History Social History: She smokes a pack a day for the past 30 years. No alcohol or drug use. She has 2 dogs and a cat at home. Surrogate medical decision maker: José Miguel Jones, spouse. Code status: Full Smoking packs per day: 1 Smoking cigarettes per day: 20.0 Years smoked: 32 Smoking pack-years: 32.00 Smoking status: Current every day smoker Tobacco type: cigarettes Second hand tobacco smoke exposure: No Alcohol intake: never Drinks per week: 0 Substance use: never Substance use type: does not use Do You Feel Safe in your Home?: Yes Lack of Transportation: No Lack of Food: Never True Current Housing: I Have Housing Concerned About Future Housing: No Difficulty Paying Gas/Electric Bills: No Difficulty Paying for Meds: YES Currently Unemployed: No Education: Associate Degree Difficulty w/ Childcare or Family Care: No Living arrangements: with family Spiritual care concerns: No Meds Home Medications and Allergies Home Medications Medication Instructions Recorded Confirmed Type fenofibrate nanocrystallized 145 145 mg PO DAILY #90 tabs 07/24/22 11/20/23 Rx mg tablet ondansetron 4 mg disintegrating 4 mg PO Q8H PRN nausea and 12/11/22 11/20/23 Rx tablet vomiting #30 tabs metformin 500 mg tablet 1,000 mg PO BID #180 tabs 12/19/22 11/20/23 Rx levothyroxine 200 mcg tablet 200 mcg PO DAILY 07/21/23 11/20/23 History nrztgc-wswotwvn-undnqlb 2 cap PO TIDWMEAL 07/22/23 11/20/23 History 36,000-114,000-180,000 unit capsule,delay rel (Creon) aspirin 81 mg tablet,delayed 81 mg PO QAM #30 tabs 07/25/23 11/20/23 Rx release pantoprazole 40 mg tablet,delayed 40 mg PO BID #30 tabs 08/22/23 11/20/23 Rx release (Protonix) citalopram 40 mg tablet 40 mg PO DAILY 08/31/23 11/20/23 History lorazepam 1 mg tablet 1 mg PO QHS PRN sleep #90 tabs 09/29/23 11/20/23 Rx losartan 25 mg tablet 25 mg PO DAILY #90 tabs 10/02/23 11/20/23 Rx ticagrelor 90 mg tablet (Brilinta) 90 mg PO BID #180 tabs 10/03/23 11/20/23 Rx atorvastatin 80 mg tablet 80 mg PO HS 10/09/23 11/20/23 History bupropion HCl 150 mg tablet,12 hr 150 mg PO HS 10/09/23 11/20/23 History sustained-release trazodone 100 mg tablet 200 mg PO HS #90 tabs 11/08/23 11/20/23 Rx metoprolol succinate 25 mg 12.5 mg PO DAILY #90 tabs 11/13/23 11/20/23 Rx tablet,extended release 24 hr hydrocodone 5 mg-acetaminophen 325 1 tablet PO Q6H PRN Pain Rated 6 11/14/23 11/20/23 Rx mg tablet Or Greater #10 tabs insulin aspart U-100 100 unit/mL 1 sliding scale dose subcut 11/14/23 11/20/23 Rx subcutaneous solution (Novolog USEASDIRECTD insulin pump #60 mL U-100 Insulin aspart) pen needle, diabetic 32 gauge x #1,200 ea 11/14/23 11/20/23 Rx 5/32 (BD Ultra-Fine Diandra Pen Needle) insulin degludec 200 unit/mL (3 34 unit (0.17 mL) subcut HS #3 mL 11/15/23 11/20/23 Rx mL) subcutaneous pen (Tresiba FlexTouch U-200 insulin) Allergies Allergy/AdvReac Type Severity Reaction Status Date / Time adhesive tape Allergy Mild Rash Verified 11/13/23 10:26 [place] pepper [green pepper] Allergy Unknown Hives Verified 11/13/23 10:26 sucralose Allergy Migraine Verified 11/13/23 10:26 [From Splenda (sucralose)] Artificial Sweetners AdvReac Migraine Uncoded 11/13/23 10:26 Vital Signs Vital Signs - 24 hr 11/19/23 20:11 11/20/23 00:01 11/20/23 00:31 Temperature 97.6 F Pulse Rate 103 H 89 87 Respiratory Rate 20 11 L 13 Blood Pressure 111/71 113/63 109/48 L Pulse Oximetry 99 97 97 11/20/23 02:09 11/20/23 04:46 11/20/23 05:45 Temperature Pulse Rate 84 78 79 Respiratory Rate 13 16 16 Blood Pressure 125/64 105/83 110/54 L Pulse Oximetry 98 95 11/20/23 06:00 11/20/23 06:00 Temperature 97.9 F Pulse Rate 83 87 Respiratory Rate 14 Blood Pressure 103/63 Pulse Oximetry 98 Exam Narrative: General: Pleasant female in no acute distress HEENT:? Pupils equal and reactive, sclera is clear, moist oral mucosa Neck:? Supple Respiratory:? Clear to auscultation bilaterally, no wheezing, adequate air entry Cardiac:? S1-S2 normal, regular rate with Abdomen:? Soft, epigastric tenderness, normoactive bowel sounds, nondistended Extremities:? No edema, cyanosis or clubbing Neuro:? Patient is awake, alert, oriented x3, nonfocal, answers to questions appropriately and follows simple commands in all extremities Skin:? No skin lesions noted Psych:? Normal mentation and affect Results Labs 11/19/23 20:17 11/20/23 05:39 Labs: Short CBC 11/19/23 Range/Units 20:17 WBC 9.8 (4.5-10.0) K/mm3 Hgb 13.6 (12.0-15.0) g/dL Hct 39.7 (37.0-47.0) % Plt Count 323 (150-375) k/mm3 BMP 11/19/23 11/20/23 11/20/23 20:17 01:04 01:20 Sodium 137 137 136 L Potassium 3.9 3.8 4.0 Chloride 98 101 100 Carbon Dioxide 24 25 24 BUN 14 D 18 H 18 H Creatinine 0.50 L 0.50 L 0.50 L Glucose 203 H 136 H 133 H Calcium 9.1 9.0 9.0 11/20/23 05:39 Sodium 141 Potassium 3.4 Chloride 106 Carbon Dioxide 28 BUN 18 H Creatinine 0.50 L Glucose 45 L* Calcium 8.2 L Liver Function 11/19/23 Range/Units 20:17 Total Bilirubin 0.5 (0.2-1.3) mg/dL AST 23 (14-36) U/L ALT 19 (6-35) U/L Alkaline Phosphatase 85 (38-126) U/L Albumin 4.6 (3.5-5.1) g/dL Urine 11/19/23 Range/Units 21:24 Urine Color Yellow (Yellow) Urine Appearance Clear (Clear) Urine pH 6.5 (5.0-9.0) Ur Specific [place] 1.019 (1.001-1.035) Urine Protein Negative (Negative) mg/dL Urine Glucose (UA) 1+ H (Negative) mg/dL Hospitalist MIPS Advance Care Plan I have confirmed that the patient's Advanced Care Plan is present, code status is documented, or surrogate decision maker is listed in patient medical record.: Yes Medication Reconciliation I have utilized all available resources to obtain, update and review the pat ients current medications (includes all prescriptions, OTC, herbals, cannabis, and nutritional supplements).: Yes
[2023-11-20 08:48] LABS: Glucose Point of Care 93 mg/dl (65-105)
--- NOTE | 2023-11-20 09:28 | PHAR ---
The patient's home med of Ldejim-Rozfnduh-Qaxxdrp [Creon] 36,000-114,000- 180,000 unit capsule has been verified.
[2023-11-20] MEDS: ASPIRIN 81 MG ENTERIC TABLET PO (09:31)
[2023-11-20] MEDS: TICAGRELOR 90 MG TABLET PO ×2 (09:32→16:10)
[2023-11-20] MEDS: FENOFIBRATE NANOCRYSTALLIZED 145 MG TABLET PO (09:32)
[2023-11-20] MEDS: HYDROmorphone HCL INJ (*CRX) 1 MG/ML SYR IV PUSH ×3 (09:40→19:37)
[2023-11-20] MEDS: PANTOPRAZOLE SODIUM IV 40 MG VIAL IV PUSH ×2 (09:40→20:05)
[2023-11-20] MEDS: ENOXAPARIN 40 MG/0.4 ML SYRINGE SUB-Q (09:40)
[2023-11-20 09:53] LABS: Anion Gap 9 mmol/L (4-12); Blood Urea Nitrogen 15 mg/dL (7-17); Calcium 7.8 mg/dL (8.4-10.2); Carbon Dioxide 21 mmol/L (22-30); Chloride 107 mmol/L (98-107); Estimated CRCL calculation 152 ml/min; Estimated Glomerular Filt Rate > 60; Glucose 86 mg/dL (65-110); Sodium 137 mmol/L (137-145)
[2023-11-20 09:55] LABS: Glucose Point of Care 88 mg/dl (65-105)
[2023-11-20 11:01] LABS: Glucose Point of Care 104 mg/dl (65-105)
--- NOTE | 2023-11-20 11:13 | P.CONNP_ITS ---
Assessment and Plan Assessment and plan (1) Hypertriglyceridemia: Code(s): E78.1 - Pure hyperglyceridemia Status: Acute Assessment and Plan: the patient has a very high triglyceride level. The levels a little bit better than had been as an outpatient but still very high. She is on an insulin drip to try to bring the level down. Generally this is not sufficient to do this. She is still having abdominal discomfort today. We will go ahead and proceed with the plasmapheresis. She is on medications to try to reduce the triglycerides. The patient is working avidly to try to get her sugars down. She now has an insulin pump. She is already on metformin. We discussed a possible fistula. However the patient does have a subcutaneous port with which they are doing the plasmapheresis. This is been in for 8 years now according to the patient. (2) Chronic pancreatitis: Onset Date: ~09/02/23 Qualifiers: Pancreatitis type: other Qualified Code(s): K86.1 - Other chronic pancreatitis Code(s): K86.1 - Other chronic pancreatitis Status: Chronic Assessment and Plan: Due to recurrent hypertriglyceridemia (3) Insulin dependent diabetes mellitus: Status: Chronic Assessment and Plan: patient is working with endocrinology about this. History of Present Illness Reason for Consult Consult date: 11/20/23 Chief Complaint Chief complaint: Chronic pancreatitis History of Present Illness Narrative: Casandra is a very pleasant 47-year-old lady who has multiple medical problems including diabetes type 2, hyperlipidemia, recurrent pancreatitis, allergic rhinitis, anxiety, GERD, long-term use of blood thinners, hypothyroidism, polycystic ovarian syndrome. The patient has severe hypertriglyceridemia. Not uncommonly it is above 2000. When the triglycerides get this high the patient develops abdominal discomfort sometimes with full-blown pancreatitis or sometimes just with the belly pain. She has had plasmapheresis many times before. More than 6 years ago, the patient had been followed at [facility]. There she was receiving plasmapheresis almost monthly and then they spread out the treatment because things were going well and eventually patient stopped going. She had 2 different single-lumen catheters for her plasmapheresis back then. In 2015 the patient had a subcutaneous port placed and this has been used for plasmapheresis ever since. Generally she has been coming to the hospital when she gets belly pain and getting a plasmapheresis then. Back in August patient had an outpatient plasmapheresis arranged by JOHNATHAN Ruiz. She has been getting monthly triglyceride levels. Her last test was high so JOHNATHAN Zuniga arrange for plasmapheresis. She and the company were trying to figure out a good day to do the plasmapheresis and so planned on today. Unfortunately yesterday she developed belly pain in ended up back in the hospital. She went to the ER and was admitted to the ICU. Her blood sugars have not been too bad but she is on a insulin drip because of her triglycerides. Her triglycerides yesterday were 2241. The patient still has abdominal discomfort. So renal consultation was requested to do plasmapheresis today. The patient has had many plasmapheresis episodes. She understands the risks benefits alternatives in process of the plasmapheresis. Review of Systems Constitutional: Constitutional: Reports no additional constitutional complaints Eyes: Eyes: Reports no additional eye complaints ENT: Reports system reviewed and no additional complaints, except as documented Cardiovascular: Cardiovascular: Reports no additional cardiovascular complaints Respiratory: Respiratory: Reports no additional respiratory complaints Gastrointestinal: Gastrointestinal: Reports no additional gastrointestinal complaints Genitourinary: Genitourinary: Reports no additional female genitourinary complaints Musculoskeletal: Musculoskeletal: Reports no additional musculoskeletal complaints Integumentary/Breasts: Skin/Breast: Reports system reviewed and no additional complaints, except as docu Neurologic: Reports system reviewed and no additional complaints, except as documented Psychiatric: Psychiatric: Reports no additional psychiatric complaints Endocrine: Endocrine: Reports no additional endocrine complaints [facility] Past Medical History Medical History Abnormal CT scan, esophagus Allergic rhinitis Anxiety Chronic pancreatitis (~09/02/23) Chylomicronemia syndrome Colon cancer screening GERD (gastroesophageal reflux disease) Headache 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 Hyperlipemia Hypertriglyceridemia Hypertriglyceridemia 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 Nausea Occult blood in stools PCOS (polycystic ovarian syndrome) Port-A-Cath in place Thyroid disorder Surgical History Surgical History History of appendectomy History of conization of cervix History of dilatation and curettage History of endometrial ablation History of exploratory laparotomy History of loop electrical excision procedure (LEEP) History of partial hysterectomy History of tonsillectomy History of tubal ligation History of wisdom tooth extraction Family History Family History Father Alcohol abuse Hypertension Mother Hypothyroid Cerebrovascular accident Grandparent Skin cancer Colon cancer Heart disease Hypothyroid Cerebrovascular accident Sibling Hypothyroid Kidney disorder Hypertension Autoimmune disorder Mother Family history of thyroid disease Family history of diabetes mellitus in first degree relative Father Family history of diabetes mellitus in first degree relative Patient's father is Other Diabetes mellitus Family history of alcoholism Family history of cardiovascular disease Family history of kidney disease Social History Social History Social History: She smokes a pack a day for the past 30 years. No alcohol or drug use. She has 2 dogs and a cat at home. Surrogate medical decision maker: José Miguel Jones, spouse. Code status: Full Smoking packs per day: 1 Smoking cigarettes per day: 20.0 Years smoked: 32 Smoking pack-years: 32.00 Smoking status: Current every day smoker Tobacco type: cigarettes Second hand tobacco smoke exposure: No Alcohol intake: never Drinks per week: 0 Substance use: never Substance use type: does not use Do You Feel Safe in your Home?: Yes Lack of Transportation: No Lack of Food: Never True Current Housing: I Have Housing Concerned About Future Housing: No Difficulty Paying Gas/Electric Bills: No Difficulty Paying for Meds: YES Currently Unemployed: No Education: Associate Degree Difficulty w/ Childcare or Family Care: No Living arrangements: with family Spiritual care concerns: No Meds Home Medications and Allergies Home Medications Medication Instructions Recorded Confirmed Type fenofibrate nanocrystallized 145 145 mg PO DAILY #90 tabs 07/24/22 11/20/23 Rx mg tablet ondansetron 4 mg disintegrating 4 mg PO Q8H PRN nausea and 12/11/22 11/20/23 Rx tablet vomiting #30 tabs metformin 500 mg tablet 1,000 mg PO BID #180 tabs 12/19/22 11/20/23 Rx levothyroxine 200 mcg tablet 200 mcg PO DAILY 07/21/23 11/20/23 History nponcu-aowjrubt-jlglqym 2 cap PO TIDWMEAL 07/22/23 11/20/23 History 36,000-114,000-180,000 unit capsule,delay rel (Creon) aspirin 81 mg tablet,delayed 81 mg PO QAM #30 tabs 07/25/23 11/20/23 Rx release pantoprazole 40 mg tablet,delayed 40 mg PO BID #30 tabs 08/22/23 11/20/23 Rx release (Protonix) citalopram 40 mg tablet 40 mg PO DAILY 08/31/23 11/20/23 History lorazepam 1 mg tablet 1 mg PO QHS PRN sleep #90 tabs 09/29/23 11/20/23 Rx losartan 25 mg tablet 25 mg PO DAILY #90 tabs 10/02/23 11/20/23 Rx ticagrelor 90 mg tablet (Brilinta) 90 mg PO BID #180 tabs 10/03/23 11/20/23 Rx atorvastatin 80 mg tablet 80 mg PO HS 10/09/23 11/20/23 History bupropion HCl 150 mg tablet,12 hr 150 mg PO HS 10/09/23 11/20/23 History sustained-release trazodone 100 mg tablet 200 mg PO HS #90 tabs 11/08/23 11/20/23 Rx metoprolol succinate 25 mg 12.5 mg PO DAILY #90 tabs 11/13/23 11/20/23 Rx tablet,extended release 24 hr hydrocodone 5 mg-acetaminophen 325 1 tablet PO Q6H PRN Pain Rated 6 11/14/23 11/20/23 Rx mg tablet Or Greater #10 tabs pen needle, diabetic 32 gauge x #1,200 ea 11/14/23 11/20/23 Rx 5/32 (BD Ultra-Fine Diandra Pen Needle) insulin degludec 200 unit/mL (3 34 unit (0.17 mL) subcut HS #3 mL 11/15/23 11/20/23 Rx mL) subcutaneous pen (Tresiba FlexTouch U-200 insulin) insulin aspart U-100 100 unit/mL 1 sliding scale dose subcut 11/20/23 Rx subcutaneous solution (Novolog .COMPLEX insulin pump #60 mL U-100 Insulin aspart) Allergies Allergy/AdvReac Type Severity Reaction Status Date / Time adhesive tape Allergy Mild Rash Verified 11/13/23 10:26 [place] pepper [green pepper] Allergy Unknown Hives Verified 11/13/23 10:26 sucralose Allergy Migraine Verified 11/13/23 10:26 [From Splenda (sucralose)] Artificial Sweetners AdvReac Migraine Uncoded 11/13/23 10:26 Vital Signs Vital Signs - 24 hr 11/19/23 20:11 11/20/23 00:01 11/20/23 00:31 Temperature 97.6 F Pulse Rate 103 H 89 87 Respiratory Rate 20 11 L 13 Blood Pressure 111/71 113/63 109/48 L Pulse Oximetry 99 97 97 Oxygen Delivery 11/20/23 02:09 11/20/23 04:46 11/20/23 05:45 Temperature Pulse Rate 84 78 79 Respiratory Rate 13 16 16 Blood Pressure 125/64 105/83 110/54 L Pulse Oximetry 98 95 Oxygen Delivery 11/20/23 06:00 11/20/23 06:00 11/20/23 08:00 Temperature 97.9 F Pulse Rate 83 87 76 Respiratory Rate 14 Blood Pressure 103/63 Pulse Oximetry 98 Oxygen Delivery 11/20/23 08:00 11/20/23 08:00 Temperature 97.8 F Pulse Rate 84 Respiratory Rate 16 Blood Pressure 104/71 Pulse Oximetry 98 Oxygen Delivery Room Air Exam Narrative: Exam Narrative: Well developed well-nourished female in no acute distress Skin is warm and dry without rash Head normocephalic atraumatic Eyes normal sclerae and conjunctivae Mouth normal lips teeth and gums Neck no nodes no thyromegaly no carotid bruits Axillae no nodes Back no CVA tenderness Lungs symmetric and clear to auscultation and percussion Heart regular rate and rhythm without rub or gallop Abdomen bowel sounds positive soft mildly tender but no rebound, no HSM, masses, or bruits. Extremities no cyanosis, clubbing, or edema Pulses 2+ equal in radial arteries Psychological not anxious or depressed Neuro alert and oriented x3 motor 5/5 cranial nerves 2-12 intact reflexes 2+ and equal in the biceps and patellar tendons cerebellar normal rapid alternating movements Results Lab Results 11/19/23 20:17 11/20/23 09:35 Lab results: Most recent lab results Calcium 7.8 mg/dL (8.4-10.2) L 11/20/23 09:35
[2023-11-20] MEDS: ALTEPLASE 2 MG VIAL (CATHFLO) IV PUSH (11:45)
[2023-11-20 12:10] LABS: Glucose Point of Care 111 mg/dl (65-105)
[2023-11-20] MEDS: CALCIUM GLUC 2,000 MG/NS 100ML 2,000 MG/100 ML BAG 100 MG IVPB (12:45)
[2023-11-20 13:09] LABS: Glucose Point of Care 114 mg/dl (65-105)
[2023-11-20 14:15] LABS: Glucose Point of Care 143 mg/dl (65-105)
[2023-11-20] MEDS: HEPARIN SODIUM, PORCINE 10,000 UNITS/10 ML VIAL 10000 UNITS IV PUSH (14:26)
--- NOTE | 2023-11-20 14:45 | PM.IMHP ---
H&P: HPI History of Present Illness Date/Time: 11/20/23 14:45 Chief Complaint: Abdominal pains Narrative: 47-year-old female with past medical history significant for hypertriglyceridemia, chronic pancreatitis, GERD, type diabetes mellitus insulin-dependent, polycystic ovarian syndrome. patient presents to the emergency room due to epigastric pain and precordial chest pain. Symptoms similar to previous visit, several admission recently with the same problems Pt has FH of hypertriglyceridemia was meant to go for plasmapheresis on but pain got so bad her abdomen she had to come into ED worse on epigastric area associated with nausea and vomiting. Pt started on insulin drip and plasmapheresis for hypertriglycemia. Pt is a DM on insulin pump started recently. 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 Nausea Occult blood in stools PCOS (polycystic ovarian syndrome) Port-A-Cath in place Thyroid disorder Surgical History Surgical History History of appendectomy History of conization of cervix History of dilatation and curettage History of endometrial ablation History of exploratory laparotomy History of loop electrical excision procedure (LEEP) History of partial hysterectomy History of tonsillectomy History of tubal ligation History of wisdom tooth extraction Family History Family History Father Alcohol abuse Hypertension Mother Hypothyroid Cerebrovascular accident Grandparent Skin cancer Colon cancer Heart disease Hypothyroid Cerebrovascular accident Sibling Hypothyroid Kidney disorder Hypertension Autoimmune disorder Mother Family history of thyroid disease Family history of diabetes mellitus in first degree relative Father Family history of diabetes mellitus in first degree relative Patient's father is Other Diabetes mellitus Family history of alcoholism Family history of cardiovascular disease Family history of kidney disease Social History Social History Social History: She smokes a pack a day for the past 30 years. No alcohol or drug use. She has 2 dogs and a cat at home. Surrogate medical decision maker: José Miguel Jones, spouse. Code status: Full Smoking packs per day: 1 Smoking cigarettes per day: 20.0 Years smoked: 32 Smoking pack-years: 32.00 Smoking status: Current every day smoker Tobacco type: cigarettes Second hand tobacco smoke exposure: No Alcohol intake: never Drinks per week: 0 Substance use: never Substance use type: does not use Do You Feel Safe in your Home?: Yes Lack of Transportation: No Lack of Food: Never True Current Housing: I Have Housing Concerned About Future Housing: No Difficulty Paying Gas/Electric Bills: No Difficulty Paying for Meds: YES Currently Unemployed: No Education: Associate Degree Difficulty w/ Childcare or Family Care: No Living arrangements: with family Spiritual care concerns: No Meds Home Medications and Allergies Home Medications Medication Instructions Recorded Confirmed Type fenofibrate nanocrystallized 145 145 mg PO DAILY #90 tabs 07/24/22 11/20/23 Rx mg tablet ondansetron 4 mg disintegrating 4 mg PO Q8H PRN nausea and 12/11/22 11/20/23 Rx tablet vomiting #30 tabs metformin 500 mg tablet 1,000 mg PO BID #180 tabs 12/19/22 11/20/23 Rx levothyroxine 200 mcg tablet 200 mcg PO DAILY 07/21/23 11/20/23 History [id number] 2 cap PO TIDWMEAL 07/22/23 11/20/23 History 36,000-114,000-180,000 unit capsule,delay rel (Creon) aspirin 81 mg tablet,delayed 81 mg PO QAM #30 tabs 07/25/23 11/20/23 Rx release pantoprazole 40 mg tablet,delayed 40 mg PO BID #30 tabs 08/22/23 11/20/23 Rx release (Protonix) citalopram 40 mg tablet 40 mg PO DAILY 08/31/23 11/20/23 History lorazepam 1 mg tablet 1 mg PO QHS PRN sleep #90 tabs 09/29/23 11/20/23 Rx losartan 25 mg tablet 25 mg PO DAILY #90 tabs 10/02/23 11/20/23 Rx ticagrelor 90 mg tablet (Brilinta) 90 mg PO BID #180 tabs 10/03/23 11/20/23 Rx atorvastatin 80 mg tablet 80 mg PO HS 10/09/23 11/20/23 History bupropion HCl 150 mg tablet,12 hr 150 mg PO HS 10/09/23 11/20/23 History sustained-release trazodone 100 mg tablet 200 mg PO HS #90 tabs 11/08/23 11/20/23 Rx metoprolol succinate 25 mg 12.5 mg PO DAILY #90 tabs 11/13/23 11/20/23 Rx tablet,extended release 24 hr hydrocodone 5 mg-acetaminophen 325 1 tablet PO Q6H PRN Pain Rated 6 11/14/23 11/20/23 Rx mg tablet Or Greater #10 tabs pen needle, diabetic 32 gauge x #1,200 ea 11/14/23 11/20/23 Rx 5/32 (BD Ultra-Fine Diandra Pen Needle) insulin degludec 200 unit/mL (3 34 unit (0.17 mL) subcut HS #3 mL 11/15/23 11/20/23 Rx mL) subcutaneous pen (Tresiba FlexTouch U-200 insulin) insulin aspart U-100 100 unit/mL 1 sliding scale dose subcut 11/20/23 Rx subcutaneous solution (Novolog .COMPLEX insulin pump #60 mL U-100 Insulin aspart) Allergies Allergy/AdvReac Type Severity Reaction Status Date / Time adhesive tape Allergy Mild Rash Verified 11/13/23 10:26 [place] pepper [green pepper] Allergy Unknown Hives Verified 11/13/23 10:26 sucralose Allergy Migraine Verified 11/13/23 10:26 [From Splenda (sucralose)] Artificial Sweetners AdvReac Migraine Uncoded 11/13/23 10:26 Vital Signs Vital Signs - 24 hr 11/19/23 20:11 11/20/23 00:01 11/20/23 00:31 Temperature 36.4 C Pulse Rate 103 H 89 87 Respiratory Rate 20 11 L 13 Blood Pressure 111/71 113/63 109/48 L Pulse Oximetry 99 97 97 Oxygen Delivery 11/20/23 02:09 11/20/23 04:46 11/20/23 05:45 Temperature Pulse Rate 84 78 79 Respiratory Rate 13 16 16 Blood Pressure 125/64 105/83 110/54 L Pulse Oximetry 98 95 Oxygen Delivery 11/20/23 06:00 11/20/23 06:00 11/20/23 08:00 Temperature 36.6 C Pulse Rate 83 87 76 Respiratory Rate 14 Blood Pressure 103/63 Pulse Oximetry 98 Oxygen Delivery 11/20/23 08:00 11/20/23 08:00 11/20/23 10:00 Temperature 36.6 C Pulse Rate 84 77 Respiratory Rate 16 Blood Pressure 104/71 Pulse Oximetry 98 Oxygen Delivery Room Air 11/20/23 10:00 11/20/23 12:00 11/20/23 12:00 Temperature 36.9 C Pulse Rate 77 72 72 Respiratory Rate 13 12 Blood Pressure 94/65 L 113/55 L Pulse Oximetry 95 100 Oxygen Delivery 11/20/23 12:00 11/20/23 14:00 11/20/23 14:00 Temperature Pulse Rate 85 85 Respiratory Rate 16 Blood Pressure 120/70 Pulse Oximetry 99 Oxygen Delivery Room Air Exam Narrative: General: In no acute distress, well nourished Head: atraumatic, no encephalopathy Eyes: EOMI, PERRLA, sclera clear ENT: moist mucous membranes, nasal passages clear Neck: supple, no JVD, no adenopathy, trachea midline Cardiac: Normal S1 and S2. RRR No murmur, gallops or friction rubs, peripheral pulses intact. Respiratory: Lungs clear to auscultation, no adventitious lung sounds, currently on room air Gastrointestinal: soft, non-distended, tenderness over epigastric region, normoactive bowel sounds. : voiding without difficulty. Extremities: moves all extremities well, no edema, good ROM, strength 5/5 Skin: clean, dry, intact. No wounds or lesions. Neuro: Alert and oriented x4, cranial nerves intact, no neuro deficits. Psych: normal mood, normal affect, interactive H&P: Results Labs Labs: Short CBC 11/19/23 Range/Units 20:17 WBC 9.8 (4.5-10.0) K/mm3 Hgb 13.6 (12.0-15.0) g/dL Hct 39.7 (37.0-47.0) % Plt Count 323 (150-375) k/mm3 [facility] 11/19/23 11/20/23 11/20/23 20:17 01:04 01:20 Sodium 137 137 136 L Potassium 3.9 3.8 4.0 Chloride 98 101 100 Carbon Dioxide 24 25 24 BUN 14 D 18 H 18 H Creatinine 0.50 L 0.50 L 0.50 L Glucose 203 H 136 H 133 H Calcium 9.1 9.0 9.0 11/20/23 11/20/23 05:39 09:35 Sodium 141 137 Potassium 3.4 4.0 Chloride 106 107 Carbon Dioxide 28 21 L BUN 18 H 15 Creatinine 0.50 L 0.40 L Glucose 45 L* 86 Calcium 8.2 L 7.8 L Liver Function 11/19/23 Range/Units 20:17 Total Bilirubin 0.5 (0.2-1.3) mg/dL AST 23 (14-36) U/L ALT 19 (6-35) U/L Alkaline Phosphatase 85 (38-126) U/L Albumin 4.6 (3.5-5.1) g/dL Urine 11/19/23 Range/Units 21:24 Urine Color Yellow (Yellow) Urine Appearance Clear (Clear) Urine pH 6.5 (5.0-9.0) Ur Specific [place] 1.019 (1.001-1.035) Urine Protein Negative (Negative) mg/dL Urine Glucose (UA) 1+ H (Negative) mg/dL Assessment and Plan Assessment and plan (1) Chronic pancreatitis: Code(s): K86.1 - Other chronic pancreatitis Status: Acute Assessment and Plan: pt is on creon (2) Electrolyte imbalance: Code(s): E87.8 - Other disorders of electrolyte and fluid balance, not elsewhere classified Status: Acute Assessment and Plan: watch BMp levels and phosp levels nephrology on board (3) Acute on chronic pancreatitis: Code(s): K85.90 - Acute pancreatitis without necrosis or infection, unspecified; K86.1 - Other chronic pancreatitis Status: Acute Assessment and Plan: pt receiving plasmaphersis and insulin drip can dc drip after plasmapheresis pt will likley need monthly labs and decision of plasmapheresis monthly will need to be made (4) DKA (diabetic ketoacidosis): Qualifiers: Diabetes mellitus complication detail: without coma Diabetes mellitus type: due to underlying condition Qualified Code(s): E08.10 - Diabetes mellitus due to underlying condition with ketoacidosis without coma Code(s): E11.10 - Type 2 diabetes mellitus with ketoacidosis without coma Status: Acute Assessment and Plan: pt is on insulin pump (5) Hyponatremia: Code(s): E87.1 - Hypo-osmolality and hyponatremia Status: Acute Assessment and Plan: pt is on fluids (6) Hypomagnesemia: Code(s): E83.42 - Hypomagnesemia Status: Acute Assessment and Plan: watch mg levels (7) Hyperphosphatemia: Code(s): E83.39 - Other disorders of phosphorus metabolism Status: Acute Assessment and Plan: watch phosp, bmp and mg (8) CAD (coronary artery disease): Code(s): I25.10 - Atherosclerotic heart disease of [place] coronary artery without angina pectoris Status: Chronic Assessment and Plan: pt is on brilinta no compliants of chest pain Plan protonix lovenox full code medication reviwed on admission Quality VTE Prophylaxis VTE prophylaxis: pharmacologic ordered (lovenox daily ) Hospitalist MIPS Advance Care Plan I have confirmed that the patient's Advanced Care Plan is present, code status is documented, or surrogate decision maker is listed in patient medical record.: Yes
[2023-11-20] MEDS: ONDANSETRON HCL ODT 4 MG TABLET PO (15:23)
[2023-11-20 16:04] LABS: BEDSIDEPREGUCG Negative
[2023-11-20 17:04] LABS: Anion Gap 10 mmol/L (4-12); Blood Urea Nitrogen 10 mg/dL (7-17); Calcium 7.6 mg/dL (8.4-10.2); Carbon Dioxide 19 mmol/L (22-30); Chloride 109 mmol/L (98-107); Estimated CRCL calculation 152 ml/min; Estimated Glomerular Filt Rate > 60; Glucose 150 mg/dL (65-110); Potassium 4.1 mmol/L (3.4-5.0); Sodium 138 mmol/L (137-145); Triglycerides 413 mg/dL (<150)
[2023-11-20] MEDS: HYDROcodone/acetaminophen (*CRX) 5-325 MG TABLET 1 TAB PO (18:29)
[2023-11-20] MEDS: ATORVASTATIN 40 MG TABLET 80 MG PO (20:04)
[2023-11-20] MEDS: LORazepam (*CRX) 1 MG TABLET PO (20:05)
[2023-11-20] MEDS: buPROPion HCL SR (12 HR) 150 MG TAB PO (20:05)
[2023-11-20] MEDS: traZODone HCL 50 MG TABLET 200 MG PO (20:05)
[2023-11-20 20:23] LABS: Glucose Point of Care 224 mg/dl (65-105)
[2023-11-20] MEDS: INSULIN ASPART (*BKC) 100 UNITS/ML SUB-Q (20:41)
[2023-11-20] MEDS: SODIUM CHLORIDE 0.9% IV 1,000 ML 999 ML IV CONT (23:45)
[2023-11-21] VITALS (28 sets, daily range): BP systolic 71–128; BP diastolic 39–96; PULSE 78–89; RESP 12–18; TEMP 36.6–36.9; O2SAT 96–99
[2023-11-21 00:39] LABS: Glucose Point of Care 174 mg/dl (65-105)
[2023-11-21 05:00] LABS: Basophils Percent Auto 0.4 % (0.2-1.2); Eosinophils Absolute Auto 0.1 K/mm3 (0-0.3); Eosinophils Percent Auto 1.1 % (0-4.4); Hematocrit 34.6 % (37.0-47.0); Hemoglobin 11.4 g/dL (12.0-15.0); Immature Granulocyte Absolute 0.08 K/mm3 (0.00-0.031); Immature Granulocyte Percent A 1.4 % (0-0.5); Lymphocytes Absolute Auto 1.71 K/mm3 (0.9-3.2); Mean Corpuscular HGB Conc 32.9 g/dl (32-36); Mean Corpuscular Hemoglobin 30.7 pg (26-34); Mean Corpuscular Volume 93.3 fl (80-100); Mean Platelet Volume 9.2 fl (7.4-10.4); Monocytes Absolute Auto 0.4 K/mm3 (0.1-0.6); Monocytes Percent Auto 6.5 % (2.6-8.5); Neutrophils Absolute Auto 3.3 K/mm3 (1.3-6.7); Neutrophils Percent Auto 59.6 % (45.5-73.1); Platelet Count Result 196 k/mm3 (150-375); Red Blood Count 3.71 M/mm3 (4.2-5.4); Red Cell Distribution Width 14.7 % (11.5-14.5); White Blood Count 5.5 K/mm3 (4.5-10.0)
[2023-11-21 05:14] LABS: Alanine Aminotransferase 11 U/L (6-35); Albumin Level 3.6 g/dL (3.5-5.1); Alkaline Phosphatase 34 U/L (38-126); Anion Gap 7 mmol/L (4-12); Aspartate Amino Transferase 16 U/L (14-36); Bilirubin,Total 0.4 mg/dL (0.2-1.3); Blood Urea Nitrogen 7 mg/dL (7-17); Carbon Dioxide 23 mmol/L (22-30); Chloride 108 mmol/L (98-107); Estimated CRCL calculation 125 ml/min; Estimated Glomerular Filt Rate > 60; Glucose 168 mg/dL (65-110); Lipase 101 U/L (23-300); Magnesium 1.5 mg/dL (1.6-2.3); Phosphorus 3.2 mg/dL (2.5-4.5); Potassium 4.3 mmol/L (3.4-5.0); Sodium 138 mmol/L (137-145)
[2023-11-21 05:22] LABS: Triglycerides 829 mg/dL (<150)
[2023-11-21] MEDS: HYDROcodone/acetaminophen (*CRX) 5-325 MG TABLET 1 TAB PO ×3 (06:12→18:13)
[2023-11-21] MEDS: LEVOTHYROXINE SODIUM 100 MCG TABLET 200 MCG PO (06:13)
--- NOTE | 2023-11-21 07:59 | WPDINTPN ---
Progress Note: A&P Assessment and Plan (1) Abdominal pain: Code(s): R10.9 - Unspecified abdominal pain Status: Acute Assessment and Plan: Patient presented with abdominal pain, nausea it to chronic pancreatitis and hypertriglyceridemia. She has had multiple admissions with similar complaints. Triglyceride levels are > 2000 -pain control with [place] -will hold dilaudid as a drops of blood pressures -Zofran for nausea/emesis (2) Hypertriglyceridemia: Code(s): E78.1 - Pure hyperglyceridemia Status: Acute Assessment and Plan: Elevated triglyceride levels on admission > 2000 -continue insulin infusion, monitor blood sugars closely -off insulin drip -will continue atorvastatin, fenofibrate -11/19: Patient received plasmapheresis -triglyceride levels of 413 yesterday and 829 this morning, discussed with roll wrapper regarding repeating plasmapheresis today to which he is agreeable -patient to get plasmapheresis again today (3) Chronic pancreatitis: Onset Date: ~09/02/23 Qualifiers: Pancreatitis type: other Qualified Code(s): K86.1 - Other chronic pancreatitis Code(s): K86.1 - Other chronic pancreatitis Status: Chronic Assessment and Plan: Continue Creon -lipase was 107 (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 Status: Acute Assessment and Plan: Continue fenofibrate and atorvastatin (5) GERD (gastroesophageal reflux disease): Qualifiers: Esophagitis presence: esophagitis presence not specified Qualified Code(s): K21.9 - Gastro-esophageal reflux disease without esophagitis Code(s): K21.9 - Gastro-esophageal reflux disease without esophagitis Status: Acute Assessment and Plan: Protonix q.12 hours (6) CAD (coronary artery disease): Code(s): I25.10 - Atherosclerotic heart disease of [place] coronary artery without angina pectoris Status: Chronic Assessment and Plan: Patient with history of coronary stents x3 at [facility] in June 2023 -continue Brilinta, aspirin, atorvastatin -will hold metoprolol and lisinopril since blood pressures are borderline (7) Insulin dependent diabetes mellitus: Status: Chronic Assessment and Plan: Patient recently started on insulin pump -off insulin infusion -continue Accu-Cheks and sliding scale insulin Plan DVT prophylaxis: Lovenox Stress ulcer prophylaxis: Protonix Nutrition: Diabetic and heart healthy diet Code Status: Full code Critical Care Time Spent: 33 minutes Discussed with patient updated with her condition and plan of care. She is aware that she will be getting plasmapheresis again today Due to a high probability of clinically significant, life threatening deterioration, the patient required my highest level of preparedness to intervene emergently and I personally spent this critical care time directly and personally managing the patient. This critical care time included obtaining a history; examining the patient; pulse oximetry; ordering and review of studies; arranging urgent treatment with development of a management plan; evaluation of patient's response to treatment; frequent reassessment; and discussions with other providers. It was exclusive of separately billable procedures and treating other patients and teaching time. Please see Assessment and Plan section and the rest of the note for further information on patient assessment and treatment This dictation may have been done utilizing a voice recognition system. Attempts have been made to correct errors. However, there may be uncorrected grammatical, spelling, and recognitions errors present. Subjective Date/time seen: 11/21/23 07:59 Interval history: Reason for consult: Abdominal pain, nausea, vomiting, hyperglycemia, hypertriglyceridemia 11/19: Plasmapheresis was done 11/21/2023: Patient seen and examined the ICU, is awake, alert, oriented, answers to questions appropriately. Complains of mild nausea and abdominal pain, denies any shortness of breath, chest pain, cough. Urine output has been adequate, it was hypotensive overnight likely related to Dilaudid, was given 1 L IV fluid bolus with improvement in blood pressures. Patient is afebrile, and currently hemodynamically stable Review of Systems Review of Systems: All systems reviewed & are unremarkable except as noted in HPI and below Exam Narrative: General: Pleasant female in no acute distress HEENT:? Pupils equal and reactive, sclera is clear, moist oral mucosa Neck:? Supple Respiratory:? Clear to auscultation bilaterally, no wheezing, adequate air entry Cardiac:? S1-S2 normal, regular rate with Abdomen:? Soft, epigastric tenderness, normoactive bowel sounds, nondistended Extremities:? No edema, cyanosis or clubbing Neuro:? Patient is awake, alert, oriented x3, nonfocal, answers to questions appropriately and follows simple commands in all extremities Skin:? No skin lesions noted Psych:? Normal mentation and affect Objective Data Vital Signs Vital Signs: Vital Signs - 24 hr 11/20/23 08:00 11/20/23 08:00 11/20/23 08:00 Temperature 97.8 F Pulse Rate 76 84 Respiratory Rate 16 Blood Pressure 104/71 Pulse Oximetry 98 Oxygen Delivery Room Air Fraction of Inspired Oxygen 11/20/23 10:00 11/20/23 10:00 11/20/23 12:00 Temperature Pulse Rate 77 77 72 Respiratory Rate 13 Blood Pressure 94/65 L Pulse Oximetry 95 Oxygen Delivery Fraction of Inspired Oxygen 11/20/23 12:00 11/20/23 12:00 11/20/23 14:00 Temperature 98.4 F Pulse Rate 72 85 Respiratory Rate 12 Blood Pressure 113/55 L Pulse Oximetry 100 Oxygen Delivery Room Air Fraction of Inspired Oxygen 11/20/23 14:00 11/20/23 13:56 11/20/23 16:00 Temperature 98.3 F Pulse Rate 85 83 Respiratory Rate 16 13 Blood Pressure 120/70 113/67 Pulse Oximetry 99 99 98 Oxygen Delivery Room Air Fraction of Inspired Oxygen 21 11/20/23 16:00 11/20/23 16:00 11/20/23 12:45 Temperature 98.4 F Pulse Rate 83 77 Respiratory Rate 15 Blood Pressure 101/72 Pulse Oximetry 98 Oxygen Delivery Room Air Fraction of Inspired Oxygen 11/20/23 13:00 11/20/23 13:15 11/20/23 13:30 Temperature 98.4 F 98.5 F 98.5 F Pulse Rate 75 74 75 Respiratory Rate 15 15 18 Blood Pressure 116/77 131/77 125/79 Pulse Oximetry Oxygen Delivery Fraction of Inspired Oxygen 11/20/23 13:45 11/20/23 14:00 11/20/23 14:15 Temperature 98.5 F 98.5 F 98.5 F Pulse Rate 75 86 84 Respiratory Rate 15 16 15 Blood Pressure 123/75 120/70 121/68 Pulse Oximetry Oxygen Delivery Fraction of Inspired Oxygen 11/20/23 14:30 11/20/23 14:45 11/20/23 15:00 Temperature 98.1 F 98.1 F 97.9 F Pulse Rate 82 84 84 Respiratory Rate 15 15 15 Blood Pressure 112/69 101/73 103/61 Pulse Oximetry Oxygen Delivery Fraction of Inspired Oxygen 11/20/23 18:00 11/20/23 18:00 11/20/23 20:00 Temperature Pulse Rate 76 76 Respiratory Rate 16 Blood Pressure 109/51 L Pulse Oximetry 99 Oxygen Delivery Room Air Fraction of Inspired Oxygen 11/20/23 20:00 11/20/23 20:00 11/20/23 22:00 Temperature 98.4 F Pulse Rate 76 81 85 Respiratory Rate 13 16 Blood Pressure 123/65 84/60 L Pulse Oximetry 98 96 Oxygen Delivery Fraction of Inspired Oxygen 11/20/23 22:00 11/20/23 23:33 11/20/23 23:34 Temperature Pulse Rate 85 Respiratory Rate Blood Pressure 71/40 L 81/49 L Pulse Oximetry Oxygen Delivery Fraction of Inspired Oxygen 11/20/23 23:40 11/20/23 23:49 11/21/23 00:00 Temperature 98 F Pulse Rate 80 Respiratory Rate 13 Blood Pressure 67/40 L 71/59 L 78/39 L Pulse Oximetry 96 Oxygen Delivery Fraction of Inspired Oxygen 11/21/23 00:00 11/21/23 00:10 11/21/23 00:15 Temperature Pulse Rate Respiratory Rate Blood Pressure 77/42 L 71/62 L Pulse Oximetry Oxygen Delivery Room Air Fraction of Inspired Oxygen 11/21/23 00:30 11/21/23 00:32 11/21/23 00:45 Temperature Pulse Rate Respiratory Rate Blood Pressure 72/61 L 90/51 L 72/40 L Pulse Oximetry Oxygen Delivery Fraction of Inspired Oxygen 11/21/23 00:48 11/21/23 00:49 11/21/23 01:00 Temperature Pulse Rate Respiratory Rate Blood Pressure 75/49 L 98/51 L 123/52 L Pulse Oximetry Oxygen Delivery Fraction of Inspired Oxygen 11/21/23 01:15 11/21/23 00:00 11/21/23 02:00 Temperature Pulse Rate 80 88 Respiratory Rate Blood Pressure 118/96 H Pulse Oximetry Oxygen Delivery Fraction of Inspired Oxygen 11/21/23 02:00 11/21/23 03:32 11/21/23 04:00 Temperature 98 F Pulse Rate 88 78 Respiratory Rate 12 17 Blood Pressure 90/49 L 106/62 105/57 L Pulse Oximetry 97 99 Oxygen Delivery Fraction of Inspired Oxygen 11/21/23 04:00 11/21/23 04:00 11/21/23 06:00 Temperature Pulse Rate 86 85 Respiratory Rate 16 Blood Pressure 116/48 L Pulse Oximetry 96 Oxygen Delivery Room Air Fraction of Inspired Oxygen 11/21/23 06:00 Temperature Pulse Rate 85 Respiratory Rate Blood Pressure Pulse Oximetry Oxygen Delivery Fraction of Inspired Oxygen Intake/Output Intake/Output: Intake & Output 11/18/23 11/19/23 11/20/23 11/21/23 23:59 23:59 23:59 23:59 Intake Total 820.7 100 Balance 820.7 100 Meds/Results Medications: Active Medications Generic Name Dose Route Start Last Admin Trade Name Freq PRN Reason Stop Dose Admin Acetaminophen 650 mg 11/20/23 10:26 Acetaminophen 325 Mg Tablet PO ONCE PRN Fever Hydrocodone Bitart/Acetaminophen 1 tab 11/20/23 15:04 11/21/23 06:12 Hydrocodone/Acetaminophen (*Crx) 5-325 Mg Tablet PO 1 tab Q6H PRN Administration Pain Rated 4-6 Alteplase, Recombinant 2 mg 11/20/23 08:52 11/20/23 11:45 Alteplase 2 Mg Vial (Cathflo) IV PUSH 2 mg ONCE PRN Administration Line Occlusion Aspirin 81 mg 11/20/23 09:00 11/20/23 09:31 Aspirin 81 Mg Enteric Tablet PO 81 mg QAM RAPHAEL Administration Atorvastatin Calcium 80 mg 11/20/23 21:00 11/20/23 20:04 Atorvastatin 40 Mg Tablet PO 80 mg HS RAPHAEL Administration Bupropion HCl 150 mg 11/20/23 21:00 11/20/23 20:05 Bupropion Hcl Sr (12 Hr) 150 Mg Tab PO 150 mg HS RAPHAEL Administration Citalopram Hydrobromide 40 mg 11/21/23 09:00 Citalopram Hydrobromide 20 Mg Tablet PO DAILY RAPHAEL Dextrose 12.5 gm 11/20/23 00:52 11/20/23 05:40 Dextrose 50% 25 Gm/50 Ml Syringe IV PUSH 12.5 gm PRN PRN Administration Hypoglycemia Protocol Dextrose 12.5 gm 11/20/23 20:25 Dextrose 50% 25 Gm/50 Ml Syringe IV PUSH PRN PRN Hypoglycemia Protocol Diphenhydramine HCl 25 mg 11/20/23 07:30 11/20/23 21:29 Diphenhydramine Hcl Inj 50 Mg/Ml Vial IV PUSH 11/22/23 07:29 25 mg Q6H PRN Administration Itching Enoxaparin Sodium 40 mg 11/20/23 09:10 11/20/23 09:40 Enoxaparin 40 Mg/0.4 Ml Syringe SUB-Q 40 mg DAILY RAPHAEL Administration Fenofibrate 145 mg 11/20/23 09:00 11/20/23 09:32 Fenofibrate Nanocrystallized 145 Mg Tablet PO 145 mg DAILY RAPHAEL Administration Glucagon 1 mg 11/20/23 00:52 Glucagon For Inj 1 Mg Vial IM PRN PRN Hypoglycemia Protocol Glucagon 1 mg 11/20/23 20:25 Glucagon For Inj 1 Mg Vial IM PRN PRN Hypoglycemia Protocol Glucose 15 gm 11/20/23 00:52 Glucose Oral Gel 15 Gm Of Glucse In 37.5 Gm Tube PO PRN PRN Hypoglycemia Protocol Glucose 15 gm 11/20/23 20:25 Glucose Oral Gel 15 Gm Of Glucse In 37.5 Gm Tube PO PRN PRN Hypoglycemia Protocol Albumin Human 25 gm in 500 mls @ 0 mls/hr 11/20/23 08:50 Albumin Human 5% IV CONT .Q0M RAPHAEL Titrate Dextrose 1,000 mls @ 100 mls/hr 11/20/23 20:25 Dextrose 5% 1,000 Ml IVPB PRN PRN Hypoglycemia Protocol Magnesium Sulfate 2 gm in 50 mls @ 50 mls/hr 11/21/23 07:17 Magnesium Sulf 2 Gm/Water 50ml IVPB 11/21/23 08:16 ONCE ONE Lactated Ringer's 500 mls @ 500 mls/hr 11/21/23 07:23 Lactated Ringers IV CONT 11/21/23 08:22 .Q1H ONE Insulin Aspart 3 - 6 units 11/21/23 08:00 Insulin Aspart (*Bkc) 100 Units/Ml SUB-Q TIDWM RAPHAEL Protocol Insulin Aspart 1 - 3 units 11/20/23 21:00 11/20/23 20:41 Insulin Aspart (*Bkc) 100 Units/Ml SUB-Q 1 units HS RAPHAEL Administration Protocol Levothyroxine Sodium 200 mcg 11/21/23 06:30 11/21/23 06:13 Levothyroxine Sodium 100 Mcg Tablet PO 200 mcg DAILY@0630 RAPHAEL Administration Lorazepam 1 mg 11/20/23 15:04 11/20/23 20:05 Lorazepam (*Crx) 1 Mg Tablet PO 1 mg QHS PRN Administration sleep Losartan Potassium 25 mg 11/21/23 09:00 Losartan Potassium 25 Mg Tablet PO DAILY RAPHAEL Metoprolol Succinate 12.5 mg 11/21/23 09:00 Metoprolol Succinate Ext Rel 12.5 Mg Tabcr PO DAILY [facility] Home Med Lipase- 2 cap 11/20/23 09:15 11/20/23 16:10 Protease-Amylase [ PO 12/20/23 09:14 Not Given Creon] 36,000-114, TIDWM RAPHAEL 000- 180,000 Unit Capsule,De Ondansetron HCl 4 mg 11/20/23 06:15 11/20/23 20:05 Ondansetron Inj 4 Mg/2 Ml Vial IV PUSH 4 mg Q4H PRN Administration Nausea And Vomiting Ondansetron HCl 4 mg 11/20/23 15:04 11/20/23 15:23 Ondansetron Hcl Odt 4 Mg Tablet PO 4 mg Q8H PRN Administration nausea and vomiting Pantoprazole Sodium 40 mg 11/20/23 09:10 11/20/23 20:05 Pantoprazole Sodium Iv 40 Mg Vial IV PUSH 40 mg Q12HR [facility] Administration Ticagrelor 90 mg 11/20/23 09:00 11/20/23 16:10 Ticagrelor 90 Mg Tablet PO 90 mg BID [facility] Administration Trazodone HCl 200 mg 11/20/23 21:00 11/20/23 20:05 Trazodone Hcl 50 Mg Tablet PO 200 mg HS [facility] Administration Labs Labs: Laboratory Results - last 24 hr 11/20/23 11/20/23 11/20/23 00:52 08:45 09:35 WBC RBC Hgb Hct MCV MCH MCHC RDW Plt Count MPV Immature Gran % (Auto) Neut % (Auto) Lymph % (Auto) Boundary % (Auto) Eos % (Auto) Baso % (Auto) Lymph # (Auto) Boundary # (Auto) Eos # (Auto) Baso # (Auto) Abs Immat Gran (auto) Absolute Neuts (auto) Absolute Nucleated RBC Nucleated RBC % Sodium 137 Potassium 4.0 Chloride 107 Carbon Dioxide 21 L Anion Gap 9 BUN 15 Creatinine 0.40 L Estim Creat Clear Calc 152 Estimated GFR > 60 Glucose 86 POC Capillary Glucose 93 Calcium 7.8 L Phosphorus Magnesium Total Bilirubin AST ALT Alkaline Phosphatase Total Protein Albumin Triglycerides Lipase POC Urine HCG, Qual Negative POC Ur Preg QC Yes 11/20/23 11/20/23 11/20/23 09:52 10:56 12:07 WBC RBC Hgb Hct MCV MCH MCHC RDW Plt Count MPV Immature Gran % (Auto) Neut % (Auto) Lymph % (Auto) Boundary % (Auto) Eos % (Auto) Baso % (Auto) Lymph # (Auto) Boundary # (Auto) Eos # (Auto) Baso # (Auto) Abs Immat Gran (auto) Absolute Neuts (auto) Absolute Nucleated RBC Nucleated RBC % Sodium Potassium Chloride Carbon Dioxide Anion Gap BUN Creatinine Estim Creat Clear Calc Estimated GFR Glucose POC Capillary Glucose 88 104 111 H Calcium Phosphorus Magnesium Total Bilirubin AST ALT Alkaline Phosphatase Total Protein Albumin Triglycerides Lipase POC Urine HCG, Qual POC Ur Preg QC 11/20/23 11/20/23 11/20/23 13:06 14:12 16:48 WBC RBC Hgb Hct MCV MCH MCHC RDW Plt Count MPV Immature Gran % (Auto) Neut % (Auto) Lymph % (Auto) Boundary % (Auto) Eos % (Auto) Baso % (Auto) Lymph # (Auto) Boundary # (Auto) Eos # (Auto) Baso # (Auto) Abs Immat Gran (auto) Absolute Neuts (auto) Absolute Nucleated RBC Nucleated RBC % Sodium 138 Potassium 4.1 Chloride 109 H Carbon Dioxide 19 L Anion Gap 10 BUN 10 D Creatinine 0.40 L Estim Creat Clear Calc 152 Estimated GFR > 60 Glucose 150 H POC Capillary Glucose 114 H 143 H Calcium 7.6 L Phosphorus Magnesium Total Bilirubin AST ALT Alkaline Phosphatase Total Protein Albumin Triglycerides 413 H Lipase POC Urine HCG, Qual POC Ur Preg QC 11/20/23 11/21/23 11/21/23 20:08 00:37 04:21 WBC 5.5 RBC 3.71 L Hgb 11.4 L Hct 34.6 L MCV 93.3 MCH 30.7 MCHC 32.9 RDW 14.7 H Plt Count 196 MPV 9.2 Immature Gran % (Auto) 1.4 H Neut % (Auto) 59.6 Lymph % (Auto) 31.0 Boundary % (Auto) 6.5 Eos % (Auto) 1.1 Baso % (Auto) 0.4 Lymph # (Auto) 1.71 Boundary # (Auto) 0.4 Eos # (Auto) 0.1 Baso # (Auto) 0.0 Abs Immat Gran (auto) 0.08 H Absolute Neuts (auto) 3.3 Absolute Nucleated RBC 0.000 Nucleated RBC % 0.0 Sodium 138 Potassium 4.3 Chloride 108 H Carbon Dioxide 23 Anion Gap 7 BUN 7 Creatinine 0.50 L Estim Creat Clear Calc 125 Estimated GFR > 60 Glucose 168 H POC Capillary Glucose 224 H 174 H Calcium 8.0 L Phosphorus 3.2 Magnesium 1.5 L Total Bilirubin 0.4 AST 16 ALT 11 Alkaline Phosphatase 34 L Total Protein 5.0 L Albumin 3.6 Triglycerides 829 H Lipase 101 POC Urine HCG, Qual POC Ur Preg QC Quality VTE Prophylaxis VTE prophylaxis: pharmacologic ordered (lovenox daily )
[2023-11-21] MEDS: TICAGRELOR 90 MG TABLET PO ×2 (08:05→17:03)
[2023-11-21] MEDS: FENOFIBRATE NANOCRYSTALLIZED 145 MG TABLET PO (08:05)
[2023-11-21] MEDS: ASPIRIN 81 MG ENTERIC TABLET PO (08:05)
[2023-11-21] MEDS: CITALOPRAM HYDROBROMIDE 20 MG TABLET 40 MG PO (08:06)
[2023-11-21] MEDS: MAGNESIUM SULF 2 GM/WATER 50ML 2 GM/50 ML BAG IVPB (08:06)
[2023-11-21] MEDS: ENOXAPARIN 40 MG/0.4 ML SYRINGE SUB-Q (08:06)
[2023-11-21] MEDS: PANTOPRAZOLE SODIUM IV 40 MG VIAL IV PUSH ×2 (08:06→21:09)
[2023-11-21] MEDS: LACTATED RINGERS 500 ML IV CONT (08:07)
[2023-11-21 08:18] LABS: Glucose Point of Care 192 mg/dl (65-105)
[2023-11-21 11:45] LABS: Glucose Point of Care 219 mg/dl (65-105)
[2023-11-21] MEDS: INSULIN ASPART (*BKC) 100 UNITS/ML SUB-Q ×2 (11:45→21:12)
--- NOTE | 2023-11-21 12:55 | PC.NURSE ---
pt complaining of pain of 7-12/06; notified Dr. Castellano of this. Dr. Castellano stated he does not wish to order any other pain medication at this time due to the drop in BP over night with Dilaudid; received no new orders at this time but was asked to explain to patient that we cannot keep giving IV fluids for low blood pressures as it would send patient into heart failure. RN did explain this to patient but did offer Kpad(heating pad) therapy; Dr. Castellano gave okay orders to use Kpad
--- NOTE | 2023-11-21 14:13 | PM.PNNEP ---
Progress Note: A&P Assessment and Plan (1) Hypertriglyceridemia: Code(s): E78.1 - Pure hyperglyceridemia Status: Acute Assessment and Plan: the patient has a very high triglyceride level. it was above 2000. it came down to target after Plasmapheresis yesterday but now back up to 829. will do another treatment so we can get her out of the hospital safely. She is on medications to try to reduce the triglycerides. The patient is working avidly to try to get her sugars down. She now has an insulin pump. She is already on metformin. discussed at length with two of the plasmapheresis nurses and Dr Castellano. (2) Chronic pancreatitis: Onset Date: ~09/02/23 Qualifiers: Pancreatitis type: other Qualified Code(s): K86.1 - Other chronic pancreatitis Code(s): K86.1 - Other chronic pancreatitis Status: Chronic Assessment and Plan: Due to recurrent hypertriglyceridemia lipase normal today (3) Insulin dependent diabetes mellitus: Status: Chronic Assessment and Plan: patient is working with endocrinology about this. Subjective Date/time seen: 11/21/23 14:13 Interval history: seen at noon. patient is feeling a little better. still some belly pain. she is asking the nurse for new pain meds. apheresis to happen again today at 2pm Review of Systems Cardiovascular: Cardiovascular: Reports no additional cardiovascular complaints Respiratory: Respiratory: Reports no additional respiratory complaints Gastrointestinal: Gastrointestinal: Reports no additional gastrointestinal complaints Genitourinary: Genitourinary: Reports no additional female genitourinary complaints Exam Narrative: WDWN in NAD skin no rash head ncat lungs clear cor reg no rub abd BS+ minimally tender and soft ext no edema. Objective Data Vital Signs Vital Signs: Vital Signs - 24 hr 11/20/23 16:00 11/20/23 16:00 11/20/23 16:00 Temperature 98.3 F Pulse Rate 83 83 Respiratory Rate 13 Blood Pressure 113/67 Pulse Oximetry 98 Oxygen Delivery Room Air Fraction of Inspired Oxygen 11/20/23 14:15 11/20/23 14:30 11/20/23 14:45 Temperature 98.5 F 98.1 F 98.1 F Pulse Rate 84 82 84 Respiratory Rate 15 15 15 Blood Pressure 121/68 112/69 101/73 Pulse Oximetry Oxygen Delivery Fraction of Inspired Oxygen 11/20/23 15:00 11/20/23 18:00 11/20/23 18:00 Temperature 97.9 F Pulse Rate 84 76 76 Respiratory Rate 15 16 Blood Pressure 103/61 109/51 L Pulse Oximetry 99 Oxygen Delivery Fraction of Inspired Oxygen 11/20/23 20:00 11/20/23 20:00 11/20/23 20:00 Temperature 98.4 F Pulse Rate 76 81 Respiratory Rate 13 Blood Pressure 123/65 Pulse Oximetry 98 Oxygen Delivery Room Air Fraction of Inspired Oxygen 11/20/23 22:00 11/20/23 22:00 11/20/23 23:33 Temperature Pulse Rate 85 85 Respiratory Rate 16 Blood Pressure 84/60 L 71/40 L Pulse Oximetry 96 Oxygen Delivery Fraction of Inspired Oxygen 11/20/23 23:34 11/20/23 23:40 11/20/23 23:49 Temperature Pulse Rate Respiratory Rate Blood Pressure 81/49 L 67/40 L 71/59 L Pulse Oximetry Oxygen Delivery Fraction of Inspired Oxygen 11/21/23 00:00 11/21/23 00:00 11/21/23 00:10 Temperature 98 F Pulse Rate 80 Respiratory Rate 13 Blood Pressure 78/39 L 77/42 L Pulse Oximetry 96 Oxygen Delivery Room Air Fraction of Inspired Oxygen 11/21/23 00:15 11/21/23 00:30 11/21/23 00:32 Temperature Pulse Rate Respiratory Rate Blood Pressure 71/62 L 72/61 L 90/51 L Pulse Oximetry Oxygen Delivery Fraction of Inspired Oxygen 11/21/23 00:45 11/21/23 00:48 11/21/23 00:49 Temperature Pulse Rate Respiratory Rate Blood Pressure 72/40 L 75/49 L 98/51 L Pulse Oximetry Oxygen Delivery Fraction of Inspired Oxygen 11/21/23 01:00 11/21/23 01:15 11/21/23 00:00 Temperature Pulse Rate 80 Respiratory Rate Blood Pressure 123/52 L 118/96 H Pulse Oximetry Oxygen Delivery Fraction of Inspired Oxygen 11/21/23 02:00 11/21/23 02:00 11/21/23 03:32 Temperature Pulse Rate 88 88 Respiratory Rate 12 Blood Pressure 90/49 L 106/62 Pulse Oximetry 97 Oxygen Delivery Fraction of Inspired Oxygen 11/21/23 04:00 11/21/23 04:00 11/21/23 04:00 Temperature 98 F Pulse Rate 78 86 Respiratory Rate 17 Blood Pressure 105/57 L Pulse Oximetry 99 Oxygen Delivery Room Air Fraction of Inspired Oxygen 11/21/23 06:00 11/21/23 06:00 11/21/23 08:00 Temperature 98.3 F Pulse Rate 85 85 84 Respiratory Rate 16 12 Blood Pressure 116/48 L 102/51 L Pulse Oximetry 96 96 Oxygen Delivery Fraction of Inspired Oxygen 11/21/23 08:00 11/21/23 08:00 11/21/23 08:31 Temperature Pulse Rate 84 Respiratory Rate Blood Pressure Pulse Oximetry 99 99 Oxygen Delivery Room Air Room Air Fraction of Inspired Oxygen 21 11/21/23 10:00 11/21/23 10:00 11/21/23 12:00 Temperature 98.2 F Pulse Rate 87 85 84 Respiratory Rate 16 12 Blood Pressure 114/78 119/73 Pulse Oximetry 98 99 Oxygen Delivery Fraction of Inspired Oxygen 11/21/23 12:00 11/21/23 12:00 11/21/23 14:00 Temperature Pulse Rate 85 88 Respiratory Rate Blood Pressure Pulse Oximetry Oxygen Delivery Room Air Fraction of Inspired Oxygen 11/21/23 14:00 Temperature Pulse Rate 88 Respiratory Rate 12 Blood Pressure 121/67 Pulse Oximetry 98 Oxygen Delivery Fraction of Inspired Oxygen Intake/Output Intake/Output: Intake & Output 11/18/23 11/19/23 11/20/23 11/21/23 23:59 23:59 23:59 23:59 Intake Total 820.7 750 Output Total 1000 Balance 820.7 -250 Meds/Results Medications: Active Medications Generic Name Dose Route Start Last Admin Trade Name Freq PRN Reason Stop Dose Admin Acetaminophen 650 mg 11/20/23 10:26 Acetaminophen 325 Mg Tablet PO ONCE PRN Fever Acetaminophen 650 mg 11/21/23 10:09 Acetaminophen 325 Mg Tablet PO ONCE PRN Fever Hydrocodone Bitart/Acetaminophen 1 tab 11/20/23 15:04 11/21/23 11:45 Hydrocodone/Acetaminophen (*Crx) 5-325 Mg Tablet PO 1 tab Q6H PRN Administration Pain Rated 4-6 Alteplase, Recombinant 2 mg 11/20/23 08:52 11/20/23 11:45 Alteplase 2 Mg Vial (Cathflo) IV PUSH 2 mg ONCE PRN Administration Line Occlusion Aspirin 81 mg 11/20/23 09:00 11/21/23 08:05 Aspirin 81 Mg Enteric Tablet PO 81 mg QAM RAPHAEL Administration Atorvastatin Calcium 80 mg 11/20/23 21:00 11/20/23 20:04 Atorvastatin 40 Mg Tablet PO 80 mg HS RAPHAEL Administration Bupropion HCl 150 mg 11/20/23 21:00 11/20/23 20:05 Bupropion Hcl Sr (12 Hr) 150 Mg Tab PO 150 mg HS RAPHAEL Administration Citalopram Hydrobromide 40 mg 11/21/23 09:00 11/21/23 08:06 Citalopram Hydrobromide 20 Mg Tablet PO 40 mg DAILY RAPHAEL Administration Dextrose 12.5 gm 11/20/23 00:52 11/20/23 05:40 Dextrose 50% 25 Gm/50 Ml Syringe IV PUSH 12.5 gm PRN PRN Administration Hypoglycemia Protocol Dextrose 12.5 gm 11/20/23 20:25 Dextrose 50% 25 Gm/50 Ml Syringe IV PUSH PRN PRN Hypoglycemia Protocol Diphenhydramine HCl 25 mg 11/20/23 07:30 11/20/23 21:29 Diphenhydramine Hcl Inj 50 Mg/Ml Vial IV PUSH 11/22/23 07:29 25 mg Q6H PRN Administration Itching Diphenhydramine HCl 25 mg 11/21/23 10:09 Diphenhydramine Hcl Inj 50 Mg/Ml Vial IV PUSH ONCE PRN for reaction Enoxaparin Sodium 40 mg 11/20/23 09:10 11/21/23 08:06 Enoxaparin 40 Mg/0.4 Ml Syringe SUB-Q 40 mg DAILY RAPHAEL Administration Fenofibrate 145 mg 11/20/23 09:00 11/21/23 08:05 Fenofibrate Nanocrystallized 145 Mg Tablet PO 145 mg DAILY RAPHAEL Administration Glucagon 1 mg 11/20/23 00:52 Glucagon For Inj 1 Mg Vial IM PRN PRN Hypoglycemia Protocol Glucagon 1 mg 11/20/23 20:25 Glucagon For Inj 1 Mg Vial IM PRN PRN Hypoglycemia Protocol Glucose 15 gm 11/20/23 00:52 Glucose Oral Gel 15 Gm Of Glucse In 37.5 Gm Tube PO PRN PRN Hypoglycemia Protocol Glucose 15 gm 11/20/23 20:25 Glucose Oral Gel 15 Gm Of Glucse In 37.5 Gm Tube PO PRN PRN Hypoglycemia Protocol Albumin Human 25 gm in 500 mls @ 0 mls/hr 11/20/23 08:50 Albumin Human 5% IV CONT .Q0M RAPHAEL Titrate Dextrose 1,000 mls @ 100 mls/hr 11/20/23 20:25 Dextrose 5% 1,000 Ml IVPB PRN PRN Hypoglycemia Protocol Sodium Chloride 500 mls @ 999 mls/hr 11/21/23 10:09 Normal Saline Iv IV CONT .Q31M PRN Hypotension Insulin Aspart 3 - 6 units 11/21/23 08:00 11/21/23 11:45 Insulin Aspart (*Bkc) 100 Units/Ml SUB-Q 3 units TIDWM RAPHAEL Administration Protocol Insulin Aspart 1 - 3 units 11/20/23 21:00 11/20/23 20:41 Insulin Aspart (*Bkc) 100 Units/Ml SUB-Q 1 units HS RAPHAEL Administration Protocol Levothyroxine Sodium 200 mcg 11/21/23 06:30 11/21/23 06:13 Levothyroxine Sodium 100 Mcg Tablet PO 200 mcg DAILY@0630 RAPHAEL Administration Lorazepam 1 mg 11/20/23 15:04 11/20/23 20:05 Lorazepam (*Crx) 1 Mg Tablet PO 1 mg QHS PRN Administration sleep Losartan Potassium 25 mg 11/21/23 09:00 Losartan Potassium 25 Mg Tablet PO DAILY RAPHAEL Metoprolol Succinate 12.5 mg 11/21/23 09:00 Metoprolol Succinate Ext Rel 12.5 Mg Tabcr PO DAILY [facility] Home Med Lipase- 2 cap 11/20/23 09:15 11/21/23 14:10 Protease-Amylase [ PO 12/20/23 09:14 Not Given Creon] 36,000-114, TIDWM RAPHAEL 000- 180,000 Unit Capsule,De Ondansetron HCl 4 mg 11/20/23 06:15 11/20/23 20:05 Ondansetron Inj 4 Mg/2 Ml Vial IV PUSH 4 mg Q4H PRN Administration Nausea And Vomiting Ondansetron HCl 4 mg 11/20/23 15:04 11/20/23 15:23 Ondansetron Hcl Odt 4 Mg Tablet PO 4 mg Q8H PRN Administration nausea and vomiting Pantoprazole Sodium 40 mg 11/20/23 09:10 11/21/23 08:06 Pantoprazole Sodium Iv 40 Mg Vial IV PUSH 40 mg Q12HR RAPHAEL Administration Ticagrelor 90 mg 11/20/23 09:00 11/21/23 08:05 Ticagrelor 90 Mg Tablet PO 90 mg BID RAPHAEL Administration Trazodone HCl 200 mg 11/20/23 21:00 11/20/23 20:05 Trazodone Hcl 50 Mg Tablet PO 200 mg HS RAPHAEL Administration Labs Labs: Laboratory Results - last 24 hr 11/20/23 11/20/23 11/20/23 00:52 14:12 16:48 WBC RBC Hgb Hct MCV MCH MCHC RDW Plt Count MPV Immature Gran % (Auto) Neut % (Auto) Lymph % (Auto) [place] % (Auto) Eos % (Auto) Baso % (Auto) Lymph # (Auto) [place] # (Auto) Eos # (Auto) Baso # (Auto) Abs Immat Gran (auto) Absolute Neuts (auto) Absolute Nucleated RBC Nucleated RBC % Sodium 138 Potassium 4.1 Chloride 109 H Carbon Dioxide 19 L Anion Gap 10 BUN 10 D Creatinine 0.40 L Estim Creat Clear Calc 152 Estimated GFR > 60 Glucose 150 H POC Capillary Glucose 143 H Calcium 7.6 L Phosphorus Magnesium Total Bilirubin AST ALT Alkaline Phosphatase Total Protein Albumin Triglycerides 413 H Lipase POC Urine HCG, Qual Negative POC Ur Preg QC Yes 11/20/23 11/21/23 11/21/23 20:08 00:37 04:21 WBC 5.5 RBC 3.71 L Hgb 11.4 L Hct 34.6 L MCV 93.3 MCH 30.7 MCHC 32.9 RDW 14.7 H Plt Count 196 MPV 9.2 Immature Gran % (Auto) 1.4 H Neut % (Auto) 59.6 Lymph % (Auto) 31.0 [place] % (Auto) 6.5 Eos % (Auto) 1.1 Baso % (Auto) 0.4 Lymph # (Auto) 1.71 [place] # (Auto) 0.4 Eos # (Auto) 0.1 Baso # (Auto) 0.0 Abs Immat Gran (auto) 0.08 H Absolute Neuts (auto) 3.3 Absolute Nucleated RBC 0.000 Nucleated RBC % 0.0 Sodium 138 Potassium 4.3 Chloride 108 H Carbon Dioxide 23 Anion Gap 7 BUN 7 Creatinine 0.50 L Estim Creat Clear Calc 125 Estimated GFR > 60 Glucose 168 H POC Capillary Glucose 224 H 174 H Calcium 8.0 L Phosphorus 3.2 Magnesium 1.5 L Total Bilirubin 0.4 AST 16 ALT 11 Alkaline Phosphatase 34 L Total Protein 5.0 L Albumin 3.6 Triglycerides 829 H Lipase 101 POC Urine HCG, Qual POC Ur Preg QC 11/21/23 11/21/23 08:04 11:35 WBC RBC Hgb Hct MCV MCH MCHC RDW Plt Count MPV Immature Gran % (Auto) Neut % (Auto) Lymph % (Auto) [place] % (Auto) Eos % (Auto) Baso % (Auto) Lymph # (Auto) [place] # (Auto) Eos # (Auto) Baso # (Auto) Abs Immat Gran (auto) Absolute Neuts (auto) Absolute Nucleated RBC Nucleated RBC % Sodium Potassium Chloride Carbon Dioxide Anion Gap BUN Creatinine Estim Creat Clear Calc Estimated GFR Glucose POC Capillary Glucose 192 H 219 H Calcium Phosphorus Magnesium Total Bilirubin AST ALT Alkaline Phosphatase Total Protein Albumin Triglycerides Lipase POC Urine HCG, Qual POC Ur Preg QC
[2023-11-21] MEDS: CALCIUM GLUC 2,000 MG/NS 100ML 2,000 MG/100 ML BAG 100 MG IVPB (15:15)
--- NOTE | 2023-11-21 15:15 | P.PNIM_ITS ---
Progress Note: A&P Assessment and Plan (1) Chronic pancreatitis: Code(s): K86.1 - Other chronic pancreatitis Status: Acute Assessment and Plan: pt is on creon (2) Electrolyte imbalance: Code(s): E87.8 - Other disorders of electrolyte and fluid balance, not elsewhere classified Status: Acute Assessment and Plan: watch BMp levels and phosp levels nephrology on board high triglycerides much improved after plasmapheresis watch triglyceride levels (3) Acute on chronic pancreatitis: Code(s): K85.90 - Acute pancreatitis without necrosis or infection, unspecified; K86.1 - Other chronic pancreatitis Status: Acute Assessment and Plan: pt receiving plasmaphersis and insulin drip yesterday rpt plasmapheresis today in icu pt will likely need monthly labs and decision of plasmapheresis monthly will need to be made watch triglyceride levels (4) DKA (diabetic ketoacidosis): Qualifiers: Diabetes mellitus complication detail: without coma Diabetes mellitus type: due to underlying condition Qualified Code(s): E08.10 - Diabetes mellitus due to underlying condition with ketoacidosis without coma Code(s): E11.10 - Type 2 diabetes mellitus with ketoacidosis without coma Status: Acute Assessment and Plan: Pt is on insulin pump on hold in hospital continue SSI and accuchecks here Pt with D10 now for low sugars (5) Hyponatremia: Code(s): E87.1 - Hypo-osmolality and hyponatremia Status: Acute Assessment and Plan: pt is on fluids (6) Hypomagnesemia: Code(s): E83.42 - Hypomagnesemia Status: Acute Assessment and Plan: watch mg levels (7) Hyperphosphatemia: Code(s): E83.39 - Other disorders of phosphorus metabolism Status: Acute Assessment and Plan: watch phosp, bmp and mg (8) CAD (coronary artery disease): Code(s): I25.10 - Atherosclerotic heart disease of inupiat coronary artery without angina pectoris Status: Chronic Assessment and Plan: pt is on brilinta no compliants of chest pain history of cardiac stents Plan protonix lovenox full code medication reviwed on admission Subjective Date/time seen: 11/21/23 15:15 Interval history: 47-year-old female with past medical history significant for hypertriglyceridemia, chronic pancreatitis, GERD, type diabetes mellitus insulin-dependent, polycystic ovarian syndrome. patient presents to the emergency room due to epigastric pain and precordial chest pain. Symptoms similar to previous visit, several admission recently with the same problems. 11/20 Pt feels better after plasmapheresis yesterday rpt treatment today, pt can have norco for abdominal pains Review of Systems Review of Systems: Mild abdominal pains Exam Narrative: General:overweight tired appearing middle aged lady Cardiac: Normal S1 and S2. RRR No murmur, gallops or friction rubs, peripheral pulses intact. Respiratory: Lungs clear to auscultation, no adventitious lung sounds, currently on room air Gastrointestinal: soft, non-distended, tenderness over epigastric region, normoactive bowel sounds. : voiding without difficulty. Extremities: moves all extremities well, no edema, good ROM, strength 5/5 Skin: clean, dry, intact. No wounds or lesions. Neuro: Alert and oriented x4, cranial nerves intact, no neuro deficits. Psych: normal mood, normal affect, interactive Objective Data Vital Signs Vital Signs: Vital Signs - 24 hr 11/20/23 16:00 11/20/23 16:00 11/20/23 16:00 Temperature 36.8 C Pulse Rate 83 83 Respiratory Rate 13 Blood Pressure 113/67 Pulse Oximetry 98 Oxygen Delivery Room Air Fraction of Inspired Oxygen 11/20/23 18:00 11/20/23 18:00 11/20/23 20:00 Temperature Pulse Rate 76 76 Respiratory Rate 16 Blood Pressure 109/51 L Pulse Oximetry 99 Oxygen Delivery Room Air Fraction of Inspired Oxygen 11/20/23 20:00 11/20/23 20:00 11/20/23 22:00 Temperature 36.9 C Pulse Rate 76 81 85 Respiratory Rate 13 16 Blood Pressure 123/65 84/60 L Pulse Oximetry 98 96 Oxygen Delivery Fraction of Inspired Oxygen 11/20/23 22:00 11/20/23 23:33 11/20/23 23:34 Temperature Pulse Rate 85 Respiratory Rate Blood Pressure 71/40 L 81/49 L Pulse Oximetry Oxygen Delivery Fraction of Inspired Oxygen 11/20/23 23:40 11/20/23 23:49 11/21/23 00:00 Temperature 36.6 C Pulse Rate 80 Respiratory Rate 13 Blood Pressure 67/40 L 71/59 L 78/39 L Pulse Oximetry 96 Oxygen Delivery Fraction of Inspired Oxygen 11/21/23 00:00 11/21/23 00:10 11/21/23 00:15 Temperature Pulse Rate Respiratory Rate Blood Pressure 77/42 L 71/62 L Pulse Oximetry Oxygen Delivery Room Air Fraction of Inspired Oxygen 11/21/23 00:30 11/21/23 00:32 11/21/23 00:45 Temperature Pulse Rate Respiratory Rate Blood Pressure 72/61 L 90/51 L 72/40 L Pulse Oximetry Oxygen Delivery Fraction of Inspired Oxygen 11/21/23 00:48 11/21/23 00:49 11/21/23 01:00 Temperature Pulse Rate Respiratory Rate Blood Pressure 75/49 L 98/51 L 123/52 L Pulse Oximetry Oxygen Delivery Fraction of Inspired Oxygen 11/21/23 01:15 11/21/23 00:00 11/21/23 02:00 Temperature Pulse Rate 80 88 Respiratory Rate Blood Pressure 118/96 H Pulse Oximetry Oxygen Delivery Fraction of Inspired Oxygen 11/21/23 02:00 11/21/23 03:32 11/21/23 04:00 Temperature 36.6 C Pulse Rate 88 78 Respiratory Rate 12 17 Blood Pressure 90/49 L 106/62 105/57 L Pulse Oximetry 97 99 Oxygen Delivery Fraction of Inspired Oxygen 11/21/23 04:00 11/21/23 04:00 11/21/23 06:00 Temperature Pulse Rate 86 85 Respiratory Rate 16 Blood Pressure 116/48 L Pulse Oximetry 96 Oxygen Delivery Room Air Fraction of Inspired Oxygen 11/21/23 06:00 11/21/23 08:00 11/21/23 08:00 Temperature 36.8 C Pulse Rate 85 84 84 Respiratory Rate 12 Blood Pressure 102/51 L Pulse Oximetry 96 Oxygen Delivery Fraction of Inspired Oxygen 11/21/23 08:00 11/21/23 08:31 11/21/23 10:00 Temperature Pulse Rate 87 Respiratory Rate Blood Pressure Pulse Oximetry 99 99 Oxygen Delivery Room Air Room Air Fraction of Inspired Oxygen 21 11/21/23 10:00 11/21/23 12:00 11/21/23 12:00 Temperature 36.8 C Pulse Rate 85 84 Respiratory Rate 16 12 Blood Pressure 114/78 119/73 Pulse Oximetry 98 99 Oxygen Delivery Room Air Fraction of Inspired Oxygen 11/21/23 12:00 11/21/23 14:00 11/21/23 14:00 Temperature Pulse Rate 85 88 88 Respiratory Rate 12 Blood Pressure 121/67 Pulse Oximetry 98 Oxygen Delivery Fraction of Inspired Oxygen Intake/Output Intake/Output: Intake & Output 11/18/23 11/19/23 11/20/23 11/21/23 23:59 23:59 23:59 23:59 Intake Total 820.7 750 Output Total 1000 Balance 820.7 -250 Meds/Results Medications: Active Medications Generic Name Dose Route Start Last Admin Trade Name Freq PRN Reason Stop Dose Admin Acetaminophen 650 mg 11/20/23 10:26 Acetaminophen 325 Mg Tablet PO ONCE PRN Fever Acetaminophen 650 mg 11/21/23 10:09 Acetaminophen 325 Mg Tablet PO ONCE PRN Fever Hydrocodone Bitart/Acetaminophen 1 tab 11/20/23 15:04 11/21/23 11:45 Hydrocodone/Acetaminophen (*Crx) 5-325 Mg Tablet PO 1 tab Q6H PRN Administration Pain Rated 4-6 Alteplase, Recombinant 2 mg 11/20/23 08:52 11/20/23 11:45 Alteplase 2 Mg Vial (Cathflo) IV PUSH 2 mg ONCE PRN Administration Line Occlusion Aspirin 81 mg 11/20/23 09:00 11/21/23 08:05 Aspirin 81 Mg Enteric Tablet PO 81 mg QAM RAPHAEL Administration Atorvastatin Calcium 80 mg 11/20/23 21:00 11/20/23 20:04 Atorvastatin 40 Mg Tablet PO 80 mg HS RAPHAEL Administration Bupropion HCl 150 mg 11/20/23 21:00 11/20/23 20:05 Bupropion Hcl Sr (12 Hr) 150 Mg Tab PO 150 mg HS RAPHAEL Administration Citalopram Hydrobromide 40 mg 11/21/23 09:00 11/21/23 08:06 Citalopram Hydrobromide 20 Mg Tablet PO 40 mg DAILY RAPHAEL Administration Dextrose 12.5 gm 11/20/23 00:52 11/20/23 05:40 Dextrose 50% 25 Gm/50 Ml Syringe IV PUSH 12.5 gm PRN PRN Administration Hypoglycemia Protocol Dextrose 12.5 gm 11/20/23 20:25 Dextrose 50% 25 Gm/50 Ml Syringe IV PUSH PRN PRN Hypoglycemia Protocol Diphenhydramine HCl 25 mg 11/20/23 07:30 11/20/23 21:29 Diphenhydramine Hcl Inj 50 Mg/Ml Vial IV PUSH 11/22/23 07:29 25 mg Q6H PRN Administration Itching Diphenhydramine HCl 25 mg 11/21/23 10:09 Diphenhydramine Hcl Inj 50 Mg/Ml Vial IV PUSH ONCE PRN for reaction Enoxaparin Sodium 40 mg 11/20/23 09:10 11/21/23 08:06 Enoxaparin 40 Mg/0.4 Ml Syringe SUB-Q 40 mg DAILY RAPHAEL Administration Fenofibrate 145 mg 11/20/23 09:00 11/21/23 08:05 Fenofibrate Nanocrystallized 145 Mg Tablet PO 145 mg DAILY RAPHAEL Administration Glucagon 1 mg 11/20/23 00:52 Glucagon For Inj 1 Mg Vial IM PRN PRN Hypoglycemia Protocol Glucagon 1 mg 11/20/23 20:25 Glucagon For Inj 1 Mg Vial IM PRN PRN Hypoglycemia Protocol Glucose 15 gm 11/20/23 00:52 Glucose Oral Gel 15 Gm Of Glucse In 37.5 Gm Tube PO PRN PRN Hypoglycemia Protocol Glucose 15 gm 11/20/23 20:25 Glucose Oral Gel 15 Gm Of Glucse In 37.5 Gm Tube PO PRN PRN Hypoglycemia Protocol Albumin Human 25 gm in 500 mls @ 0 mls/hr 11/20/23 08:50 Albumin Human 5% IV CONT .Q0M RAPHALE Titrate Dextrose 1,000 mls @ 100 mls/hr 11/20/23 20:25 Dextrose 5% 1,000 Ml IVPB PRN PRN Hypoglycemia Protocol Sodium Chloride 500 mls @ 999 mls/hr 11/21/23 10:09 Normal Saline Iv IV CONT .Q31M PRN Hypotension Insulin Aspart 3 - 6 units 11/21/23 08:00 11/21/23 11:45 Insulin Aspart (*Bkc) 100 Units/Ml SUB-Q 3 units TIDWM RAPHAEL Administration Protocol Insulin Aspart 1 - 3 units 11/20/23 21:00 11/20/23 20:41 Insulin Aspart (*Bkc) 100 Units/Ml SUB-Q 1 units HS RAPHAEL Administration Protocol Levothyroxine Sodium 200 mcg 11/21/23 06:30 11/21/23 06:13 Levothyroxine Sodium 100 Mcg Tablet PO 200 mcg DAILY@0630 RAPHAEL Administration Lorazepam 1 mg 11/20/23 15:04 11/20/23 20:05 Lorazepam (*Crx) 1 Mg Tablet PO 1 mg QHS PRN Administration sleep Losartan Potassium 25 mg 11/21/23 09:00 Losartan Potassium 25 Mg Tablet PO DAILY [facility] Metoprolol Succinate 12.5 mg 11/21/23 09:00 Metoprolol Succinate Ext Rel 12.5 Mg Tabcr PO DAILY [facility] Home Med Lipase- 2 cap 11/20/23 09:15 11/21/23 14:10 Protease-Amylase [ PO 12/20/23 09:14 Not Given Creon] 36,000-114, TIDWM RAPHAEL 000- 180,000 Unit Capsule,De Ondansetron HCl 4 mg 11/20/23 06:15 11/20/23 20:05 Ondansetron Inj 4 Mg/2 Ml Vial IV PUSH 4 mg Q4H PRN Administration Nausea And Vomiting Ondansetron HCl 4 mg 11/20/23 15:04 11/20/23 15:23 Ondansetron Hcl Odt 4 Mg Tablet PO 4 mg Q8H PRN Administration nausea and vomiting Pantoprazole Sodium 40 mg 11/20/23 09:10 11/21/23 08:06 Pantoprazole Sodium Iv 40 Mg Vial IV PUSH 40 mg Q12HR [facility] Administration Ticagrelor 90 mg 11/20/23 09:00 11/21/23 08:05 Ticagrelor 90 Mg Tablet PO 90 mg BID [facility] Administration Trazodone HCl 200 mg 11/20/23 21:00 11/20/23 20:05 Trazodone Hcl 50 Mg Tablet PO 200 mg HS RAPHAEL Administration Labs Labs: Laboratory Results - last 24 hr 11/20/23 11/20/23 11/20/23 00:52 16:48 20:08 WBC RBC Hgb Hct MCV MCH MCHC RDW Plt Count MPV Immature Gran % (Auto) Neut % (Auto) Lymph % (Auto) [place] % (Auto) Eos % (Auto) Baso % (Auto) Lymph # (Auto) [place] # (Auto) Eos # (Auto) Baso # (Auto) Abs Immat Gran (auto) Absolute Neuts (auto) Absolute Nucleated RBC Nucleated RBC % Sodium 138 Potassium 4.1 Chloride 109 H Carbon Dioxide 19 L Anion Gap 10 BUN 10 D Creatinine 0.40 L Estim Creat Clear Calc 152 Estimated GFR > 60 Glucose 150 H POC Capillary Glucose 224 H Calcium 7.6 L Phosphorus Magnesium Total Bilirubin AST ALT Alkaline Phosphatase Total Protein Albumin Triglycerides 413 H Lipase POC Urine HCG, Qual Negative U Test Com None POC Ur Preg QC Yes 11/21/23 11/21/23 11/21/23 00:37 04:21 08:04 WBC 5.5 RBC 3.71 L Hgb 11.4 L Hct 34.6 L MCV 93.3 MCH 30.7 MCHC 32.9 RDW 14.7 H Plt Count 196 MPV 9.2 Immature Gran % (Auto) 1.4 H Neut % (Auto) 59.6 Lymph % (Auto) 31.0 [place] % (Auto) 6.5 Eos % (Auto) 1.1 Baso % (Auto) 0.4 Lymph # (Auto) 1.71 [place] # (Auto) 0.4 Eos # (Auto) 0.1 Baso # (Auto) 0.0 Abs Immat Gran (auto) 0.08 H Absolute Neuts (auto) 3.3 Absolute Nucleated RBC 0.000 Nucleated RBC % 0.0 Sodium 138 Potassium 4.3 Chloride 108 H Carbon Dioxide 23 Anion Gap 7 BUN 7 Creatinine 0.50 L Estim Creat Clear Calc 125 Estimated GFR > 60 Glucose 168 H POC Capillary Glucose 174 H 192 H Calcium 8.0 L Phosphorus 3.2 Magnesium 1.5 L Total Bilirubin 0.4 AST 16 ALT 11 Alkaline Phosphatase 34 L Total Protein 5.0 L Albumin 3.6 Triglycerides 829 H Lipase 101 POC Urine HCG, Qual U Test Com POC Ur Preg QC 11/21/23 11:35 WBC RBC Hgb Hct MCV MCH MCHC RDW Plt Count MPV Immature Gran % (Auto) Neut % (Auto) Lymph % (Auto) [place] % (Auto) Eos % (Auto) Baso % (Auto) Lymph # (Auto) [place] # (Auto) Eos # (Auto) Baso # (Auto) Abs Immat Gran (auto) Absolute Neuts (auto) Absolute Nucleated RBC Nucleated RBC % Sodium Potassium Chloride Carbon Dioxide Anion Gap BUN Creatinine Estim Creat Clear Calc Estimated GFR Glucose POC Capillary Glucose 219 H Calcium Phosphorus Magnesium Total Bilirubin AST ALT Alkaline Phosphatase Total Protein Albumin Triglycerides Lipase POC Urine HCG, Qual U Test Com POC Ur Preg QC
[2023-11-21] MEDS: ALBUMIN HUMAN 5% IV CONT (15:16)
[2023-11-21] MEDS: SODIUM CHLORIDE 0.9% IV 1,000 ML 999 ML IV CONT (15:16)
[2023-11-21] MEDS: HEPARIN SODIUM, PORCINE 10,000 UNITS/10 ML VIAL 10000 UNITS IV PUSH (16:48)
[2023-11-21] MEDS: ONDANSETRON INJ 4 MG/2 ML VIAL IV PUSH (17:03)
[2023-11-21] MEDS: diphenhydrAMINE HCl INJ 50 MG/ML VIAL 25 MG IV PUSH (17:03)
[2023-11-21 17:37] LABS: Glucose Point of Care 165 mg/dl (65-105)
[2023-11-21 18:00] LABS: Triglycerides 253 mg/dL (<150)
[2023-11-21] MEDS: ACETAMINOPHEN 325 MG TABLET 650 MG PO (21:08)
[2023-11-21] MEDS: buPROPion HCL SR (12 HR) 150 MG TAB PO (21:09)
[2023-11-21] MEDS: traZODone HCL 50 MG TABLET 200 MG PO (21:09)
[2023-11-21] MEDS: ATORVASTATIN 40 MG TABLET 80 MG PO (21:09)
[2023-11-21] MEDS: LORazepam (*CRX) 1 MG TABLET PO (21:09)
[2023-11-22] VITALS (9 sets, daily range): BP systolic 91–126; BP diastolic 52–69; PULSE 74–88; RESP 14–19; TEMP 36.5–36.8; O2SAT 94–100
[2023-11-22] MEDS: HYDROcodone/acetaminophen (*CRX) 5-325 MG TABLET 1 TAB PO ×3 (00:04→11:33)
[2023-11-22] MEDS: diphenhydrAMINE HCl INJ 50 MG/ML VIAL 25 MG IV PUSH ×2 (00:08→09:24)
[2023-11-22 04:26] LABS: Basophils Percent Auto 0.4 % (0.2-1.2); Eosinophils Absolute Auto 0.1 K/mm3 (0-0.3); Eosinophils Percent Auto 1.3 % (0-4.4); Hematocrit 33.4 % (37.0-47.0); Immature Granulocyte Absolute 0.04 K/mm3 (0.00-0.031); Immature Granulocyte Percent A 0.8 % (0-0.5); Lymphocytes Absolute Auto 1.79 K/mm3 (0.9-3.2); Lymphocytes Percent Auto 37.8 % (18.3-44.2); Mean Corpuscular HGB Conc 32.9 g/dl (32-36); Mean Corpuscular Hemoglobin 30.1 pg (26-34); Mean Corpuscular Volume 91.5 fl (80-100); Mean Platelet Volume 9.4 fl (7.4-10.4); Monocytes Absolute Auto 0.3 K/mm3 (0.1-0.6); Monocytes Percent Auto 6.1 % (2.6-8.5); Neutrophils Absolute Auto 2.5 K/mm3 (1.3-6.7); Neutrophils Percent Auto 53.6 % (45.5-73.1); Platelet Count Result 176 k/mm3 (150-375); Red Blood Count 3.65 M/mm3 (4.2-5.4); Red Cell Distribution Width 14.1 % (11.5-14.5); White Blood Count 4.7 K/mm3 (4.5-10.0)
[2023-11-22 04:39] LABS: Alanine Aminotransferase 10 U/L (6-35); Albumin Level 3.6 g/dL (3.5-5.1); Alkaline Phosphatase 26 U/L (38-126); Anion Gap 8 mmol/L (4-12); Aspartate Amino Transferase 14 U/L (14-36); Bilirubin,Total 0.5 mg/dL (0.2-1.3); Blood Urea Nitrogen 7 mg/dL (7-17); Calcium 8.4 mg/dL (8.4-10.2); Carbon Dioxide 21 mmol/L (22-30); Chloride 110 mmol/L (98-107); Estimated CRCL calculation 156 ml/min; Estimated Glomerular Filt Rate > 60; Glucose 192 mg/dL (65-110); Magnesium 1.6 mg/dL (1.6-2.3); Potassium 3.8 mmol/L (3.4-5.0); Sodium 139 mmol/L (137-145); Triglycerides 386 mg/dL (<150)
[2023-11-22] MEDS: LEVOTHYROXINE SODIUM 100 MCG TABLET 200 MCG PO (06:04)
--- NOTE | 2023-11-22 07:54 | P.PNINT_ITS ---
Progress Note: A&P Assessment and Plan (1) Abdominal pain: Code(s): R10.9 - Unspecified abdominal pain Status: Acute Assessment and Plan: Patient presented with abdominal pain, nausea it to chronic pancreatitis and hypertriglyceridemia. She has had multiple admissions with similar complaints. 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 Status: Acute Assessment and Plan: Continue fenofibrate and atorvastatin (5) GERD (gastroesophageal reflux disease): Qualifiers: Esophagitis presence: esophagitis presence not specified Qualified Code(s): K21.9 - Gastro-esophageal reflux disease without esophagitis Code(s): K21.9 - Gastro-esophageal reflux disease without esophagitis Status: Acute Assessment and Plan: Protonix q.12 hours (6) CAD (coronary artery disease): Code(s): I25.10 - Atherosclerotic heart disease of [place] coronary artery without angina pectoris Status: Chronic Assessment and Plan: Patient with history of coronary stents x3 at [facility] in June 2023 -continue Brilinta, aspirin, atorvastatin -will hold metoprolol and lisinopril since blood pressures are borderline (7) Insulin dependent diabetes mellitus: Status: Chronic Assessment and Plan: Patient recently started on insulin pump -off insulin infusion -continue Accu-Cheks and sliding scale insulin Plan DVT prophylaxis: Lovenox Stress ulcer prophylaxis: Protonix Nutrition: Diabetic and heart healthy diet Code Status: Full code Critical Care Time Spent: 31 minutes Patient with more of the ICU of [place] with hospitalist Discussed with patient and updated her with her condition and plan of care. Due to a high probability of clinically significant, life threatening deterioration, the patient required my highest level of preparedness to intervene emergently and I personally spent this critical care time directly and personally managing the patient. This critical care time included obtaining a history; examining the patient; pulse oximetry; ordering and review of studies; arranging urgent treatment with development of a management plan; evaluation of patient's response to treatment; frequent reassessment; and discussions with other providers. It was exclusive of separately billable procedures and treating other patients and teaching time. Please see Assessment and Plan section and the rest of the note for further information on patient assessment and treatment This dictation may have been done utilizing a voice recognition system. Attempts have been made to correct errors. However, there may be uncorrected grammatical, spelling, and recognitions errors present. Subjective Date/time seen: 11/22/23 07:54 Interval history: Reason for consult: Abdominal pain, nausea, vomiting, hyperglycemia, hypertriglyceridemia 11/19: Plasmapheresis 11/20: Plasmapheresis 11/22/2023: Patient seen and examined the ICU, is awake, alert, oriented, answers to questions appropriately. Denies any chest pain, shortness of breath,. Nausea abdominal pain have improved. Urine output has been adequate, blood pressures have been stable, appetite has improved, afebrile. No issues overnight Review of Systems Review of Systems: All systems reviewed & are unremarkable except as noted in HPI and below Exam Narrative: General: Pleasant female in no acute distress HEENT:? Pupils equal and reactive, sclera is clear, moist oral mucosa Neck:? Supple Respiratory:? Clear to auscultation bilaterally, no wheezing, adequate air entry Cardiac:? S1-S2 normal, regular rate with Abdomen:? Soft, epigastric tenderness, normoactive bowel sounds, nondistended Extremities:? No edema, cyanosis or clubbing Neuro:? Patient is awake, alert, oriented x3, nonfocal, answers to questions appropriately and follows simple commands in all extremities Skin:? No skin lesions noted Psych:? Normal mentation and affect Objective Data Vital Signs Vital Signs: Vital Signs - 24 hr 11/21/23 08:00 11/21/23 08:00 11/21/23 08:00 Temperature 98.3 F Pulse Rate 84 84 Respiratory Rate 12 Blood Pressure 102/51 L Pulse Oximetry 96 99 Oxygen Delivery Room Air Fraction of Inspired Oxygen 11/21/23 08:31 11/21/23 10:00 11/21/23 10:00 Temperature Pulse Rate 87 85 Respiratory Rate 16 Blood Pressure 114/78 Pulse Oximetry 99 98 Oxygen Delivery Room Air Fraction of Inspired Oxygen 21 11/21/23 12:00 11/21/23 12:00 11/21/23 12:00 Temperature 98.2 F Pulse Rate 84 85 Respiratory Rate 12 Blood Pressure 119/73 Pulse Oximetry 99 Oxygen Delivery Room Air Fraction of Inspired Oxygen 11/21/23 14:00 11/21/23 14:00 11/21/23 15:00 Temperature 97.9 F Pulse Rate 88 88 85 Respiratory Rate 12 16 Blood Pressure 121/67 121/67 Pulse Oximetry 98 98 Oxygen Delivery Fraction of Inspired Oxygen 11/21/23 16:00 11/21/23 16:00 11/21/23 16:00 Temperature 98.4 F Pulse Rate 84 85 Respiratory Rate 16 Blood Pressure 116/66 Pulse Oximetry 98 Oxygen Delivery Room Air Fraction of Inspired Oxygen 11/21/23 15:30 11/21/23 16:30 11/21/23 16:00 Temperature 97.9 F 97.9 F 98 F Pulse Rate 84 89 86 Respiratory Rate 16 16 16 Blood Pressure 121/61 115/73 124/72 Pulse Oximetry Oxygen Delivery Fraction of Inspired Oxygen 11/21/23 18:00 11/21/23 18:00 11/21/23 19:56 Temperature Pulse Rate 87 87 88 Respiratory Rate 12 Blood Pressure 128/76 Pulse Oximetry 99 Oxygen Delivery Fraction of Inspired Oxygen 11/21/23 19:57 11/21/23 20:00 11/21/23 22:00 Temperature 98.1 F Pulse Rate 88 87 87 Respiratory Rate 18 18 Blood Pressure 103/68 Pulse Oximetry 99 99 Oxygen Delivery Room Air Fraction of Inspired Oxygen 11/21/23 22:00 11/22/23 00:00 11/22/23 00:00 Temperature Pulse Rate 88 81 81 Respiratory Rate 16 16 Blood Pressure Pulse Oximetry 97 97 Oxygen Delivery Room Air Fraction of Inspired Oxygen 11/22/23 00:00 11/22/23 02:00 11/22/23 02:00 Temperature Pulse Rate 81 77 77 Respiratory Rate 16 16 Blood Pressure 122/54 L 101/52 L Pulse Oximetry 97 98 Oxygen Delivery Fraction of Inspired Oxygen 11/22/23 03:47 11/22/23 03:50 11/22/23 04:00 Temperature 98.3 F Pulse Rate 78 78 74 Respiratory Rate 16 16 Blood Pressure 91/58 L Pulse Oximetry 98 100 Oxygen Delivery Room Air Fraction of Inspired Oxygen 11/22/23 06:00 11/22/23 06:00 Temperature 98.2 F Pulse Rate 77 74 Respiratory Rate 16 Blood Pressure 108/58 L Pulse Oximetry 99 Oxygen Delivery Fraction of Inspired Oxygen Intake/Output Intake/Output: Intake & Output 11/19/23 11/20/23 11/21/23 11/22/23 23:59 23:59 23:59 23:59 Intake Total 820.7 4214 420 Output Total 1000 Balance 820.7 3214 420 Meds/Results Medications: Active Medications Generic Name Dose Route Start Last Admin Trade Name Freq PRN Reason Stop Dose Admin Acetaminophen 650 mg 11/21/23 10:09 Acetaminophen 325 Mg Tablet PO ONCE PRN Fever Hydrocodone Bitart/Acetaminophen 1 tab 11/20/23 15:04 11/22/23 06:04 Hydrocodone/Acetaminophen (*Crx) 5-325 Mg Tablet PO 1 tab Q6H PRN Administration Pain Rated 4-6 Alteplase, Recombinant 2 mg 11/20/23 08:52 11/20/23 11:45 Alteplase 2 Mg Vial (Cathflo) IV PUSH 2 mg ONCE PRN Administration Line Occlusion Aspirin 81 mg 11/20/23 09:00 11/21/23 08:05 Aspirin 81 Mg Enteric Tablet PO 81 mg QAM RAPHAEL Administration Atorvastatin Calcium 80 mg 11/20/23 21:00 11/21/23 21:09 Atorvastatin 40 Mg Tablet PO 80 mg HS RAPHAEL Administration Bupropion HCl 150 mg 11/20/23 21:00 11/21/23 21:09 Bupropion Hcl Sr (12 Hr) 150 Mg Tab PO 150 mg HS RAPHAEL Administration Citalopram Hydrobromide 40 mg 11/21/23 09:00 11/21/23 08:06 Citalopram Hydrobromide 20 Mg Tablet PO 40 mg DAILY RAPHAEL Administration Dextrose 12.5 gm 11/20/23 00:52 11/20/23 05:40 Dextrose 50% 25 Gm/50 Ml Syringe IV PUSH 12.5 gm PRN PRN Administration Hypoglycemia Protocol Dextrose 12.5 gm 11/20/23 20:25 Dextrose 50% 25 Gm/50 Ml Syringe IV PUSH PRN PRN Hypoglycemia Protocol Diphenhydramine HCl 25 mg 11/21/23 10:09 Diphenhydramine Hcl Inj 50 Mg/Ml Vial IV PUSH ONCE PRN for reaction Enoxaparin Sodium 40 mg 11/20/23 09:10 11/21/23 08:06 Enoxaparin 40 Mg/0.4 Ml Syringe SUB-Q 40 mg DAILY RAPHAEL Administration Fenofibrate 145 mg 11/20/23 09:00 11/21/23 08:05 Fenofibrate Nanocrystallized 145 Mg Tablet PO 145 mg DAILY RAPHAEL Administration Glucagon 1 mg 11/20/23 00:52 Glucagon For Inj 1 Mg Vial IM PRN PRN Hypoglycemia Protocol Glucagon 1 mg 11/20/23 20:25 Glucagon For Inj 1 Mg Vial IM PRN PRN Hypoglycemia Protocol Glucose 15 gm 11/20/23 00:52 Glucose Oral Gel 15 Gm Of Glucse In 37.5 Gm Tube PO PRN PRN Hypoglycemia Protocol Glucose 15 gm 11/20/23 20:25 Glucose Oral Gel 15 Gm Of Glucse In 37.5 Gm Tube PO PRN PRN Hypoglycemia Protocol Albumin Human 25 gm in 500 mls @ 0 mls/hr 11/20/23 08:50 Albumin Human 5% IV CONT .Q0M RAPHAEL Titrate Dextrose 1,000 mls @ 100 mls/hr 11/20/23 20:25 Dextrose 5% 1,000 Ml IVPB PRN PRN Hypoglycemia Protocol Sodium Chloride 500 mls @ 999 mls/hr 11/21/23 10:09 Normal Saline Iv IV CONT .Q31M PRN Hypotension Magnesium Sulfate 2 gm in 50 mls @ 50 mls/hr 11/22/23 07:27 Magnesium Sulf 2 Gm/Water 50ml IVPB 11/22/23 08:26 ONCE ONE Insulin Aspart 3 - 6 units 11/21/23 08:00 11/22/23 07:16 Insulin Aspart (*Bkc) 100 Units/Ml SUB-Q Not Given TIDWM RAPHAEL Protocol Insulin Aspart 1 - 3 units 11/20/23 21:00 11/21/23 21:12 Insulin Aspart (*Bkc) 100 Units/Ml SUB-Q 1 units HS RAPHAEL Administration Protocol Levothyroxine Sodium 200 mcg 11/21/23 06:30 11/22/23 06:04 Levothyroxine Sodium 100 Mcg Tablet PO 200 mcg DAILY@0630 RAPHAEL Administration Lorazepam 1 mg 11/20/23 15:04 11/21/23 21:09 Lorazepam (*Crx) 1 Mg Tablet PO 1 mg QHS PRN Administration sleep Losartan Potassium 25 mg 11/21/23 09:00 Losartan Potassium 25 Mg Tablet PO DAILY RAPHAEL Metoprolol Succinate 12.5 mg 11/21/23 09:00 Metoprolol Succinate Ext Rel 12.5 Mg Tabcr PO DAILY [facility] Home Med Lipase- 2 cap 11/20/23 09:15 11/21/23 19:03 Protease-Amylase [ PO 12/20/23 09:14 2 cap Creon] 36,000-114, TIDWM RAPHAEL Administration 000- 180,000 Unit Capsule,De Ondansetron HCl 4 mg 11/20/23 06:15 11/21/23 17:03 Ondansetron Inj 4 Mg/2 Ml Vial IV PUSH 4 mg Q4H PRN Administration Nausea And Vomiting Ondansetron HCl 4 mg 11/20/23 15:04 11/20/23 15:23 Ondansetron Hcl Odt 4 Mg Tablet PO 4 mg Q8H PRN Administration nausea and vomiting Pantoprazole Sodium 40 mg 11/20/23 09:10 11/21/23 21:09 Pantoprazole Sodium Iv 40 Mg Vial IV PUSH 40 mg Q12HR RAPHAEL Administration Ticagrelor 90 mg 11/20/23 09:00 11/21/23 17:03 Ticagrelor 90 Mg Tablet PO 90 mg BID RAPHAEL Administration Trazodone HCl 200 mg 11/20/23 21:00 11/21/23 21:09 Trazodone Hcl 50 Mg Tablet PO 200 mg HS [facility] Administration Labs Labs: Laboratory Results - last 24 hr 11/20/23 11/21/23 11/21/23 00:52 08:04 11:35 WBC RBC Hgb Hct MCV MCH MCHC RDW Plt Count MPV Immature Gran % (Auto) Neut % (Auto) Lymph % (Auto) [place] % (Auto) Eos % (Auto) Baso % (Auto) Lymph # (Auto) [place] # (Auto) Eos # (Auto) Baso # (Auto) Abs Immat Gran (auto) Absolute Neuts (auto) Absolute Nucleated RBC Nucleated RBC % Sodium Potassium Chloride Carbon Dioxide Anion Gap BUN Creatinine Estim Creat Clear Calc Estimated GFR Glucose POC Capillary Glucose 192 H 219 H Calcium Phosphorus Magnesium Total Bilirubin AST ALT Alkaline Phosphatase Total Protein Albumin Triglycerides U Test Com None 11/21/23 11/21/23 11/22/23 17:02 17:42 04:15 WBC 4.7 RBC 3.65 L Hgb 11.0 L Hct 33.4 L MCV 91.5 MCH 30.1 MCHC 32.9 RDW 14.1 Plt Count 176 MPV 9.4 Immature Gran % (Auto) 0.8 H Neut % (Auto) 53.6 Lymph % (Auto) 37.8 [place] % (Auto) 6.1 Eos % (Auto) 1.3 Baso % (Auto) 0.4 Lymph # (Auto) 1.79 [place] # (Auto) 0.3 Eos # (Auto) 0.1 Baso # (Auto) 0.0 Abs Immat Gran (auto) 0.04 H Absolute Neuts (auto) 2.5 Absolute Nucleated RBC 0.000 Nucleated RBC % 0.0 Sodium 139 Potassium 3.8 Chloride 110 H Carbon Dioxide 21 L Anion Gap 8 BUN 7 Creatinine 0.40 L Estim Creat Clear Calc 156 Estimated GFR > 60 Glucose 192 H POC Capillary Glucose 165 H Calcium 8.4 Phosphorus 3.0 Magnesium 1.6 Total Bilirubin 0.5 AST 14 ALT 10 Alkaline Phosphatase 26 L Total Protein 5.0 L Albumin 3.6 Triglycerides 253 H 386 H U Test Com Quality VTE Prophylaxis VTE prophylaxis: pharmacologic ordered (lovenox daily )
[2023-11-22] MEDS: MAGNESIUM SULF 2 GM/WATER 50ML 2 GM/50 ML BAG IVPB (09:11)
[2023-11-22] MEDS: CITALOPRAM HYDROBROMIDE 20 MG TABLET 40 MG PO (09:13)
[2023-11-22] MEDS: TICAGRELOR 90 MG TABLET PO (09:13)
[2023-11-22] MEDS: FENOFIBRATE NANOCRYSTALLIZED 145 MG TABLET PO (09:13)
[2023-11-22] MEDS: ASPIRIN 81 MG ENTERIC TABLET PO (09:13)
[2023-11-22] MEDS: ENOXAPARIN 40 MG/0.4 ML SYRINGE SUB-Q (09:14)
[2023-11-22] MEDS: PANTOPRAZOLE SODIUM IV 40 MG VIAL IV PUSH (09:14)
[2023-11-22] MEDS: ONDANSETRON INJ 4 MG/2 ML VIAL IV PUSH (09:23)
--- NOTE | 2023-11-22 10:36 | PM.PNNEP ---
Progress Note: A&P Assessment and Plan (1) Hypertriglyceridemia: Code(s): E78.1 - Pure hyperglyceridemia Status: Acute Assessment and Plan: the patient has a very high triglyceride level. it was above 2000. it came down to target after Plasmapheresis yesterday and now is in the 200s. Okay for discharge from the kidney standpoint (2) Chronic pancreatitis: Onset Date: ~09/02/23 Qualifiers: Pancreatitis type: other Qualified Code(s): K86.1 - Other chronic pancreatitis Code(s): K86.1 - Other chronic pancreatitis Status: Chronic Assessment and Plan: Due to recurrent hypertriglyceridemia lipase normal yesterday (3) Insulin dependent diabetes mellitus: Status: Chronic Assessment and Plan: patient is working with endocrinology about this. Subjective Date/time seen: 11/22/23 10:36 Interval history: Casandra is feeling better today. Eager for discharge Exam Narrative: WDWN in NAD skin no rash head ncat lungs clear bilaterally cor reg no rub abd BS+ nontender and soft ext no edema. Objective Data Vital Signs Vital Signs: Vital Signs - 24 hr 11/21/23 12:00 11/21/23 12:00 11/21/23 12:00 Temperature 98.2 F Pulse Rate 84 85 Respiratory Rate 12 Blood Pressure 119/73 Pulse Oximetry 99 Oxygen Delivery Room Air Fraction of Inspired Oxygen 11/21/23 14:00 11/21/23 14:00 11/21/23 15:00 Temperature 97.9 F Pulse Rate 88 88 85 Respiratory Rate 12 16 Blood Pressure 121/67 121/67 Pulse Oximetry 98 98 Oxygen Delivery Fraction of Inspired Oxygen 11/21/23 16:00 11/21/23 16:00 11/21/23 16:00 Temperature 98.4 F Pulse Rate 84 85 Respiratory Rate 16 Blood Pressure 116/66 Pulse Oximetry 98 Oxygen Delivery Room Air Fraction of Inspired Oxygen 11/21/23 15:30 11/21/23 16:30 11/21/23 16:00 Temperature 97.9 F 97.9 F 98 F Pulse Rate 84 89 86 Respiratory Rate 16 16 16 Blood Pressure 121/61 115/73 124/72 Pulse Oximetry Oxygen Delivery Fraction of Inspired Oxygen 11/21/23 18:00 11/21/23 18:00 11/21/23 19:56 Temperature Pulse Rate 87 87 88 Respiratory Rate 12 Blood Pressure 128/76 Pulse Oximetry 99 Oxygen Delivery Fraction of Inspired Oxygen 11/21/23 19:57 11/21/23 20:00 11/21/23 22:00 Temperature 98.1 F Pulse Rate 88 87 87 Respiratory Rate 18 18 Blood Pressure 103/68 Pulse Oximetry 99 99 Oxygen Delivery Room Air Fraction of Inspired Oxygen 21 11/21/23 22:00 11/22/23 00:00 11/22/23 00:00 Temperature Pulse Rate 88 81 81 Respiratory Rate 16 16 Blood Pressure Pulse Oximetry 97 97 Oxygen Delivery Room Air Fraction of Inspired Oxygen 21 11/22/23 00:00 11/22/23 02:00 11/22/23 02:00 Temperature Pulse Rate 81 77 77 Respiratory Rate 16 16 Blood Pressure 122/54 L 101/52 L Pulse Oximetry 97 98 Oxygen Delivery Fraction of Inspired Oxygen 11/22/23 03:47 11/22/23 03:50 11/22/23 04:00 Temperature 98.3 F Pulse Rate 78 78 74 Respiratory Rate 16 16 Blood Pressure 91/58 L Pulse Oximetry 98 100 Oxygen Delivery Room Air Fraction of Inspired Oxygen 21 11/22/23 06:00 11/22/23 06:00 11/22/23 08:00 Temperature 98.2 F Pulse Rate 77 74 79 Respiratory Rate 16 Blood Pressure 108/58 L Pulse Oximetry 99 Oxygen Delivery Fraction of Inspired Oxygen 11/22/23 08:00 11/22/23 08:00 11/22/23 10:00 Temperature 97.7 F Pulse Rate 79 79 88 Respiratory Rate 14 14 Blood Pressure 108/58 L Pulse Oximetry 98 98 Oxygen Delivery Room Air Fraction of Inspired Oxygen 21 11/22/23 10:00 Temperature Pulse Rate 88 Respiratory Rate 18 Blood Pressure 125/58 L Pulse Oximetry 94 Oxygen Delivery Fraction of Inspired Oxygen Intake/Output Intake/Output: Intake & Output 11/19/23 11/20/23 11/21/23 11/22/23 23:59 23:59 23:59 23:59 Intake Total 820.7 4214 540 Output Total 1000 Balance 820.7 3214 540 Meds/Results Medications: Active Medications Generic Name Dose Route Start Last Admin Trade Name Freq PRN Reason Stop Dose Admin Acetaminophen 650 mg 11/21/23 10:09 Acetaminophen 325 Mg Tablet PO ONCE PRN Fever Hydrocodone Bitart/Acetaminophen 1 tab 11/20/23 15:04 11/22/23 06:04 Hydrocodone/Acetaminophen (*Crx) 5-325 Mg Tablet PO 1 tab Q6H PRN Administration Pain Rated 4-6 Alteplase, Recombinant 2 mg 11/20/23 08:52 11/20/23 11:45 Alteplase 2 Mg Vial (Cathflo) IV PUSH 2 mg ONCE PRN Administration Line Occlusion Aspirin 81 mg 11/20/23 09:00 11/22/23 09:13 Aspirin 81 Mg Enteric Tablet PO 81 mg QAM RAPHAEL Administration Atorvastatin Calcium 80 mg 11/20/23 21:00 11/21/23 21:09 Atorvastatin 40 Mg Tablet PO 80 mg HS RAPHAEL Administration Bupropion HCl 150 mg 11/20/23 21:00 11/21/23 21:09 Bupropion Hcl Sr (12 Hr) 150 Mg Tab PO 150 mg HS RAPHAEL Administration Citalopram Hydrobromide 40 mg 11/21/23 09:00 11/22/23 09:13 Citalopram Hydrobromide 20 Mg Tablet PO 40 mg DAILY RAPHAEL Administration Dextrose 12.5 gm 11/20/23 00:52 11/20/23 05:40 Dextrose 50% 25 Gm/50 Ml Syringe IV PUSH 12.5 gm PRN PRN Administration Hypoglycemia Protocol Dextrose 12.5 gm 11/20/23 20:25 Dextrose 50% 25 Gm/50 Ml Syringe IV PUSH PRN PRN Hypoglycemia Protocol Enoxaparin Sodium 40 mg 11/20/23 09:10 11/22/23 09:14 Enoxaparin 40 Mg/0.4 Ml Syringe SUB-Q 40 mg DAILY RAPHAEL Administration Fenofibrate 145 mg 11/20/23 09:00 11/22/23 09:13 Fenofibrate Nanocrystallized 145 Mg Tablet PO 145 mg DAILY RAPHAEL Administration Glucagon 1 mg 11/20/23 00:52 Glucagon For Inj 1 Mg Vial IM PRN PRN Hypoglycemia Protocol Glucagon 1 mg 11/20/23 20:25 Glucagon For Inj 1 Mg Vial IM PRN PRN Hypoglycemia Protocol Glucose 15 gm 11/20/23 00:52 Glucose Oral Gel 15 Gm Of Glucse In 37.5 Gm Tube PO PRN PRN Hypoglycemia Protocol Glucose 15 gm 11/20/23 20:25 Glucose Oral Gel 15 Gm Of Glucse In 37.5 Gm Tube PO PRN PRN Hypoglycemia Protocol Albumin Human 25 gm in 500 mls @ 0 mls/hr 11/20/23 08:50 Albumin Human 5% IV CONT .Q0M RAPHAEL Titrate Dextrose 1,000 mls @ 100 mls/hr 11/20/23 20:25 Dextrose 5% 1,000 Ml IVPB PRN PRN Hypoglycemia Protocol Sodium Chloride 500 mls @ 999 mls/hr 11/21/23 10:09 Normal Saline Iv IV CONT .Q31M PRN Hypotension Insulin Aspart 3 - 6 units 11/21/23 08:00 11/22/23 07:16 Insulin Aspart (*Bkc) 100 Units/Ml SUB-Q Not Given TIDWM RAPHAEL Protocol Insulin Aspart 1 - 3 units 11/20/23 21:00 11/21/23 21:12 Insulin Aspart (*Bkc) 100 Units/Ml SUB-Q 1 units HS RAPHAEL Administration Protocol Levothyroxine Sodium 200 mcg 11/21/23 06:30 11/22/23 06:04 Levothyroxine Sodium 100 Mcg Tablet PO 200 mcg DAILY@0630 RAPHAEL Administration Lorazepam 1 mg 11/20/23 15:04 11/21/23 21:09 Lorazepam (*Crx) 1 Mg Tablet PO 1 mg QHS PRN Administration sleep Losartan Potassium 25 mg 11/21/23 09:00 Losartan Potassium 25 Mg Tablet PO DAILY [facility] Metoprolol Succinate 12.5 mg 11/21/23 09:00 Metoprolol Succinate Ext Rel 12.5 Mg Tabcr PO DAILY [facility] Home Med Lipase- 2 cap 11/20/23 09:15 11/22/23 09:13 Protease-Amylase [ PO 12/20/23 09:14 2 cap Creon] 36,000-114, TIDWM RAPHAEL Administration 000- 180,000 Unit Capsule,De Ondansetron HCl 4 mg 11/20/23 06:15 11/22/23 09:23 Ondansetron Inj 4 Mg/2 Ml Vial IV PUSH 4 mg Q4H PRN Administration Nausea And Vomiting Ondansetron HCl 4 mg 11/20/23 15:04 11/20/23 15:23 Ondansetron Hcl Odt 4 Mg Tablet PO 4 mg Q8H PRN Administration nausea and vomiting Pantoprazole Sodium 40 mg 11/20/23 09:10 11/22/23 09:14 Pantoprazole Sodium Iv 40 Mg Vial IV PUSH 40 mg Q12HR RAPHAEL Administration Ticagrelor 90 mg 11/20/23 09:00 11/22/23 09:13 Ticagrelor 90 Mg Tablet PO 90 mg BID RAPHAEL Administration Trazodone HCl 200 mg 11/20/23 21:00 11/21/23 21:09 Trazodone Hcl 50 Mg Tablet PO 200 mg HS RAPHAEL Administration Labs Labs: Laboratory Results - last 24 hr 11/20/23 11/21/23 11/21/23 00:52 11:35 17:02 WBC RBC Hgb Hct MCV MCH MCHC RDW Plt Count MPV Immature Gran % (Auto) Neut % (Auto) Lymph % (Auto) [place] % (Auto) Eos % (Auto) Baso % (Auto) Lymph # (Auto) [place] # (Auto) Eos # (Auto) Baso # (Auto) Abs Immat Gran (auto) Absolute Neuts (auto) Absolute Nucleated RBC Nucleated RBC % Sodium Potassium Chloride Carbon Dioxide Anion Gap BUN Creatinine Estim Creat Clear Calc Estimated GFR Glucose POC Capillary Glucose 219 H 165 H Calcium Phosphorus Magnesium Total Bilirubin AST ALT Alkaline Phosphatase Total Protein Albumin Triglycerides U Test Com None 11/21/23 11/22/23 17:42 04:15 WBC 4.7 RBC 3.65 L Hgb 11.0 L Hct 33.4 L MCV 91.5 MCH 30.1 MCHC 32.9 RDW 14.1 Plt Count 176 MPV 9.4 Immature Gran % (Auto) 0.8 H Neut % (Auto) 53.6 Lymph % (Auto) 37.8 [place] % (Auto) 6.1 Eos % (Auto) 1.3 Baso % (Auto) 0.4 Lymph # (Auto) 1.79 [place] # (Auto) 0.3 Eos # (Auto) 0.1 Baso # (Auto) 0.0 Abs Immat Gran (auto) 0.04 H Absolute Neuts (auto) 2.5 Absolute Nucleated RBC 0.000 Nucleated RBC % 0.0 Sodium 139 Potassium 3.8 Chloride 110 H Carbon Dioxide 21 L Anion Gap 8 BUN 7 Creatinine 0.40 L Estim Creat Clear Calc 156 Estimated GFR > 60 Glucose 192 H POC Capillary Glucose Calcium 8.4 Phosphorus 3.0 Magnesium 1.6 Total Bilirubin 0.5 AST 14 ALT 10 Alkaline Phosphatase 26 L Total Protein 5.0 L Albumin 3.6 Triglycerides 253 H 386 H U Test Com
[2023-11-22] MEDS: INSULIN ASPART (*BKC) 100 UNITS/ML SUB-Q (11:33)
[2023-11-22 11:36] LABS: Glucose Point of Care 206 mg/dl (65-105)
--- NOTE | 2023-11-22 13:25 | PM.DS ---
DS: Admitting Diagnosis Discharge Date 11/22/2023 Admitting Diagnosis Abdominal pains DS: Discharge Diagnosis Discharge Diagnosis (1) Chronic pancreatitis: Code(s): K86.1 - Other chronic pancreatitis Status: Acute Assessment and Plan: pt is on creon (2) Electrolyte imbalance: Code(s): E87.8 - Other disorders of electrolyte and fluid balance, not elsewhere classified Status: Acute Assessment and Plan: watch BMp levels and phosp levels nephrology on board high triglycerides much improved after plasmapheresis pt had 2 treatments of plasmaphersis (3) Acute on chronic pancreatitis: Code(s): K85.90 - Acute pancreatitis without necrosis or infection, unspecified; K86.1 - Other chronic pancreatitis Status: Acute Assessment and Plan: pt receiving plasmaphersis and insulin drip yesterday pt will likely need monthly labs and decision of plasmapheresis monthly will need to be made (4) DKA (diabetic ketoacidosis): Qualifiers: Diabetes mellitus complication detail: without coma Diabetes mellitus type: due to underlying condition Qualified Code(s): E08.10 - Diabetes mellitus due to underlying condition with ketoacidosis without coma Code(s): E11.10 - Type 2 diabetes mellitus with ketoacidosis without coma Status: Acute Assessment and Plan: Pt is on insulin pump on hold in hospital continue SSI and accuchecks here (5) Hyponatremia: Code(s): E87.1 - Hypo-osmolality and hyponatremia Status: Acute Assessment and Plan: pt is on fluids (6) Hypomagnesemia: Code(s): E83.42 - Hypomagnesemia Status: Acute Assessment and Plan: watch mg levels (7) Hyperphosphatemia: Code(s): E83.39 - Other disorders of phosphorus metabolism Status: Acute Assessment and Plan: watch phosp, bmp and mg (8) CAD (coronary artery disease): Code(s): I25.10 - Atherosclerotic heart disease of [place] coronary artery without angina pectoris Status: Chronic Assessment and Plan: pt is on brilinta no compliants of chest pain history of cardiac stents DS: Summary Hospital Course Hospital Course: 47-year-old female with past medical history significant for hypertriglyceridemia, chronic pancreatitis, GERD, type diabetes mellitus insulin-dependent, polycystic ovarian syndrome. patient presents to the emergency room due to epigastric pain and precordial chest pain. Symptoms similar to previous visit, several admission recently with the same problems Pt has FH of hypertriglyceridemia was meant to go for plasmapheresis on but pain got so bad her abdomen she had to come into ED worse on epigastric area associated with nausea and vomiting. Pt started on insulin drip and plasmapheresis for hypertriglycemia. Pt is a DM on insulin pump started recently. Time Spent with Patient Time attestation: Total time spent providing and/or coordinating discharge services:45 minutes on day of DC Exam Narrative: General:overweight tired appearing middle aged lady Cardiac: Normal S1 and S2. RRR No murmur, gallops or friction rubs, peripheral pulses intact. Respiratory: Lungs clear to auscultation, no adventitious lung sounds, currently on room air Gastrointestinal: soft, non-distended, tenderness over epigastric region, normoactive bowel sounds. : voiding without difficulty. Extremities: moves all extremities well, no edema, good ROM, strength 5/5 Skin: clean, dry, intact. No wounds or lesions. Neuro: Alert and oriented x4, cranial nerves intact, no neuro deficits. Psych: normal mood, normal affect, interactive DS: Data Data Completed and Pending Labs on day of discharge: Labs from last 24 hours 11/22/23 11/22/23 11/21/23 11:30 04:15 17:42 WBC 4.7 RBC 3.65 L Hgb 11.0 L Hct 33.4 L MCV 91.5 MCH 30.1 MCHC 32.9 RDW 14.1 Plt Count 176 MPV 9.4 Immature Gran % (Auto) 0.8 H Neut % (Auto) 53.6 Lymph % (Auto) 37.8 [place] % (Auto) 6.1 Eos % (Auto) 1.3 Baso % (Auto) 0.4 Lymph # (Auto) 1.79 [place] # (Auto) 0.3 Eos # (Auto) 0.1 Baso # (Auto) 0.0 Abs Immat Gran (auto) 0.04 H Absolute Neuts (auto) 2.5 Absolute Nucleated RBC 0.000 Nucleated RBC % 0.0 Sodium 139 Potassium 3.8 Chloride 110 H Carbon Dioxide 21 L Anion Gap 8 BUN 7 Creatinine 0.40 L Estim Creat Clear Calc 156 Estimated GFR > 60 Glucose 192 H POC Capillary Glucose 206 H Calcium 8.4 Phosphorus 3.0 Magnesium 1.6 Total Bilirubin 0.5 AST 14 ALT 10 Alkaline Phosphatase 26 L Total Protein 5.0 L Albumin 3.6 Triglycerides 386 H 253 H U Test Com 11/21/23 11/20/23 17:02 00:52 WBC RBC Hgb Hct MCV MCH MCHC RDW Plt Count MPV Immature Gran % (Auto) Neut % (Auto) Lymph % (Auto) [place] % (Auto) Eos % (Auto) Baso % (Auto) Lymph # (Auto) [place] # (Auto) Eos # (Auto) Baso # (Auto) Abs Immat Gran (auto) Absolute Neuts (auto) Absolute Nucleated RBC Nucleated RBC % Sodium Potassium Chloride Carbon Dioxide Anion Gap BUN Creatinine Estim Creat Clear Calc Estimated GFR Glucose POC Capillary Glucose 165 H Calcium Phosphorus Magnesium Total Bilirubin AST ALT Alkaline Phosphatase Total Protein Albumin Triglycerides U Test Com None Discharge Plan Discharge Attending physician on discharge: Dolores Modi Consulting providers: Krystin Castellano; Lino Lowry Discharging Clinician: Dolores Modi Anticipated Discharge Date/Time: 11/22/23 13:21 Patient Disposition: Home, Self-Care Activity: as tolerated Diet: diabetic and low cholesterol Discharge Instructions: Electrolyte Imbalance- glucose and triglycerides imbalance Pt has a standing order for monthly labs- from her PCP Depending on lab results pt may need monthly plasmapheresis treatments Patient Instructions: Antibiotic Form, Ticagrelor (By mouth), How to Stop Smoking (DC) Stand Alone Forms: General Discharge Information Follow-up/Referrals: Jose Zuniga APRN [Primary Care Provider] - Discharge Medications: New hydrocodone-acetaminophen 5-325 mg tablet 1 tablet PO Q8H PRN (Reason: pain) Qty: 7 0RF Continued metformin 500 mg tablet 1,000 mg PO BID Qty: 180 1RF Rx Instructions: with morning & evening meals metoprolol succinate 25 mg tablet extended release 24 hr 12.5 mg PO DAILY Qty: 90 1RF hydrocodone-acetaminophen 5-325 mg tablet 1 tablet PO Q6H PRN (Reason: Pain Rated 6 Or Greater) Qty: 10 0RF pantoprazole [Protonix] 40 mg tablet,delayed release (DR/EC) 40 mg PO BID Qty: 30 0RF levothyroxine 200 mcg tablet 200 mcg PO DAILY Creon 36,000-114,000- 180,000 unit capsule,delayed release(DR/EC) 2 cap PO TIDWMEAL Rx Instructions: Take 2 capsules with meals and 1 capsule with any snacks. aspirin 81 mg Tablet,Delayed Release (Dr/Ec) 81 mg PO QAM Qty: 30 0RF citalopram 40 mg tablet 40 mg PO DAILY Rx Instructions: TAKE 1 TABLET BY MOUTH EVERY DAY bupropion HCl 150 mg tablet sustained-release 12 hr 150 mg PO HS atorvastatin 80 mg tablet 80 mg PO HS ondansetron 4 mg tablet,disintegrating 4 mg PO Q8H PRN (Reason: nausea and vomiting) Qty: 30 0RF fenofibrate nanocrystallized 145 mg tablet 145 mg PO DAILY Qty: 90 1RF lorazepam 1 mg tablet 1 mg PO QHS PRN (Reason: sleep) Qty: 90 0RF losartan 25 mg tablet 25 mg PO DAILY Qty: 90 0RF Brilinta 90 mg tablet 90 mg PO BID Qty: 180 0RF trazodone 100 mg tablet 200 mg PO HS Qty: 90 0RF (DME) pen needle, diabetic [BD Ultra-Fine Diandra Pen Needle] 32 gauge x 5/32 needle See Rx Instructions .ROUTE .MEDSUPPLY Qty: 1200 12RF Rx Instructions: 4 times daily insulin degludec [Tresiba FlexTouch U-200] 200 unit/mL (3 mL) insulin pen 34 unit SUBCUT HS Qty: 3 0RF insulin aspart U-100 [Novolog U-100 Insulin aspart] 100 unit/mL solution 1 sliding scale dose subcut .COMPLEX MDD 60 Qty: 60 0RF Rx Instructions: 1 sliding scale dose subcutaneously via insulin pump; inuslin pump Date of admission: 11/20/23 04:36 Primary Care Provider: Jose Zuniga Admitting Provider: Brynn Remy Attending physician on admission: Brynn Remy Condition: Improved
== END 2023-11-22 14:19 | disposition home or self-care (01) | DRG 440 ==
LOC: ANHED 11-20 04:27 → ANHICU 11-20 05:09
PROVIDERS: Internal Medicine; Internal Medicine Nephrology; Admitting Provider Internal Medicine; Emergency Provider Emergency Medicine; PCP Nurse Practitioner; Visit Provider Family Medicine
DX: K86.1 Other chronic pancreatitis (principal); E11.65 Type 2 diabetes mellitus with hyperglycemia; E87.8 Other disorders of electrolyte and fluid balance, not elsewhere classified; E83.42 Hypomagnesemia; E83.39 Other disorders of phosphorus metabolism; E78.5 Hyperlipidemia, unspecified; E78.1 Pure hyperglyceridemia; E28.2 Polycystic ovarian syndrome; F17.210 Nicotine dependence, cigarettes, uncomplicated; F32.A Depression, unspecified; I25.10 Atherosclerotic heart disease of native coronary artery without angina pectoris; K21.9 Gastro-esophageal reflux disease without esophagitis; Z96.41 Presence of insulin pump (external) (internal); Z79.4 Long term (current) use of insulin; Z90.49 Acquired absence of other specified parts of digestive tract; Z95.5 Presence of coronary angioplasty implant and graft; Z79.84 Long term (current) use of oral hypoglycemic drugs; Z79.82 Long term (current) use of aspirin
CPT/HCPCS: 36415; 36514; 80048; 80053; 81001; 81025; 82948; 83690; 83735; 84100; 84478; 85025; 87641; 93005; 96365; 96375; 99285; A9270; J0613; J1170; J1200; J1644; J1650; J1815; J1885; J2405; J2470; J2997; J3475; J3480; J7030; J7120; P9045

== ENCOUNTER 2024-01-07 21:16 | Inpatient (IN) | payer MEDICARE, SELFPAY ==
[2024-01-07 21:18] VITALS: BP 121/49; PULSE 106; RESP 18; TEMP 36.5; O2SAT 97
[2024-01-08] VITALS (22 sets, daily range): BP systolic 91–151; BP diastolic 43–86; PULSE 74–117; RESP 11–23; TEMP 36.5–37.1; O2SAT 91–100
--- NOTE | 2024-01-08 00:20 | ECG_ITS ---
Test Date: 2024-01-08 00:35:27 Measurements Intervals [place] Rate: 93 P: 49 [place]: 156 QRS: 52 QRSD: 86 T: 22 QT: 351 QTc: 437 Interpretive Statements SINUS RHYTHM BORDERLINE ST-T WAVE ABNORMALITY- INFERIOR LEADS BASELINE ARTIFACT- I, III, AVL BORDERLINE ECG Compared to ECG 11/20/2023 03:12:04 No significant changes Electronically Signed On 01-08-2024 06:14:17 CDT by Baron Bowers D.O.
--- NOTE | 2024-01-08 00:42 | ED.ABDPAIN ---
HPI - Abdominal Pain General Chief Complaint: Abdominal Pain <DARI Lamar Last Filed: 01/08/24 02:43> Stated Complaint: abdominal pain, N,V,D <DARI Lamar Last Filed: 01/08/24 02:43> Time Seen by Provider: 01/07/24 23:51 <ADRI Lamar Last Filed: 01/08/24 02:43> Source: patient and old records reviewed <DARI Lamar Last Filed: 01/08/24 02:43> Mode of arrival: ambulatory <DARI Lamar Filed: 01/08/24 02:43> Limitations: no limitations <DARI Lamar Filed: 01/08/24 02:43> History of Present Illness HPI narrative: Patient is a 48-year-old female, with past medical history of chronic pancreatitis, hypertriglyceridemia, chylomicronemia, IDDM with insulin pump, CAD s/p 3 stents, who presents to the ED with report of abdominal pain. Patient reports having acute on chronic upper abdominal pain over the last 2-3 days. States it feels typical over her previous episodes. She attempted fasting at home, but denied improvement. Reports nausea, vomiting, diarrhea. Denies fevers. Denies urinary complaints. Denies CP/SOB. On fenofibrate, atorvastatin, creon. Patient had GA in June, had 2 stents placed. Also had a stent placed in November of this year. She sees Dr. Mayer with cardiology at [facility]. <DARI Lamar Last Filed: 01/08/24 02:43> Related Data Home Medications: Home Medications Medication Instructions Recorded Confirmed levothyroxine 200 mcg tablet 200 mcg PO DAILY 07/21/23 01/08/24 [id number] 2 cap PO TIDWMEAL 07/22/23 01/08/24 36,000-114,000-180,000 unit capsule,delay rel (Creon) citalopram 40 mg tablet 40 mg PO DAILY 08/31/23 01/08/24 atorvastatin 80 mg tablet 80 mg PO HS 10/09/23 01/08/24 bupropion HCl 150 mg tablet,12 hr 150 mg PO HS 10/09/23 01/08/24 sustained-release <Susan Diaz PA-C - Last Filed: 01/08/24 02:43> Allergies/Adverse Reactions: Allergies Allergy/AdvReac Type Severity Reaction Status Date / Time adhesive tape Allergy Mild Rash Verified 01/08/24 03:13 [place] pepper [green pepper] Allergy Unknown Hives Verified 01/08/24 03:13 sucralose Allergy Migraine Verified 01/08/24 03:13 [From Splenda (sucralose)] Artificial Sweetners AdvReac Migraine Uncoded 01/08/24 03:13 <Susan Diaz PA-C - Last Filed: 01/08/24 02:43> Review of Systems Review of Systems: All systems reviewed & are unremarkable except as noted in HPI. 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 Nausea Occult blood in stools PCOS (polycystic ovarian syndrome) Port-A-Cath in place Thyroid disorder <Susan Diaz PA-C - Last Filed: 01/08/24 02:43> Surgical History Surgical History: Surgical History History of appendectomy History of conization of cervix History of dilatation and curettage History of endometrial ablation History of exploratory laparotomy History of loop electrical excision procedure (LEEP) History of partial hysterectomy History of tonsillectomy History of tubal ligation History of wisdom tooth extraction <Susan Diaz PA-C - Last Filed: 01/08/24 02:43> Family
[2024-01-08 00:46] LABS: Basophils Percent Auto 0.4 % (0.2-1.2); Eosinophils Absolute Auto 0.1 K/mm3 (0-0.3); Hematocrit 36.9 % (37.0-47.0); Hemoglobin 12.4 g/dL (12.0-15.0); Immature Granulocyte Absolute 0.05 K/mm3 (0.00-0.031); Immature Granulocyte Percent A 0.5 % (0-0.5); Lymphocytes Absolute Auto 2.67 K/mm3 (0.9-3.2); Lymphocytes Percent Auto 26.9 % (18.3-44.2); Mean Corpuscular HGB Conc 33.6 g/dl (32-36); Mean Corpuscular Hemoglobin 29.9 pg (26-34); Mean Corpuscular Volume 88.9 fl (80-100); Mean Platelet Volume 9.3 fl (7.4-10.4); Monocytes Absolute Auto 0.6 K/mm3 (0.1-0.6); Monocytes Percent Auto 5.6 % (2.6-8.5); Neutrophils Absolute Auto 6.5 K/mm3 (1.3-6.7); Neutrophils Percent Auto 65.6 % (45.5-73.1); Platelet Count Result 252 k/mm3 (150-375); Red Blood Count 4.15 M/mm3 (4.2-5.4); Red Cell Distribution Width 13.4 % (11.5-14.5); White Blood Count 9.9 K/mm3 (4.5-10.0)
[2024-01-08 00:47] LABS: Add Urine Microscopic? NO; Appearance Urine Clear (Clear); Bilirubin Urine Negative (Negative); Blood Urine Negative (Negative); Color Urine Yellow (Yellow); Glucose Urine UA Negative (Negative); Ketones Urine Negative (Negative); Leukocyte Esterase Ur Negative LEU/UL (Negative); Nitrate Urine Negative (Negative); Protein Urine Negative (Negative); Specific Grav Ur 1.023 (1.001-1.035); Urobilinogen Urine 0.2 mg/dL (<2.0); pH Urine 5.5 (5.0-9.0)
[2024-01-08] MEDS: ONDANSETRON INJ 4 MG/2 ML VIAL IV PUSH (00:53)
[2024-01-08] MEDS: SODIUM CHLORIDE 0.9% IV 1,000 ML 999 ML IV CONT ×2 (00:53→01:48)
[2024-01-08] MEDS: MORPHINE SULFATE (*CRX) 4 MG/ML INJ IV PUSH (00:53)
[2024-01-08 00:57] LABS: Lactic Acid Reflex 1.5 mmol/L (0.7-2.0)
[2024-01-08 01:10] LABS: INR 0.9; Prothrombin Time 12.5 Seconds (11.1-14.7); Troponin I < 0.012 ng/mL (0.000-0.034)
[2024-01-08 01:11] LABS: Beta-Hydroxybutyrate/Acetoacetate 0.16 mmol/L (0.02-0.27)
[2024-01-08 01:12] LABS: Partial Thromboplastin Time 32.1 Seconds (22.3-36.8)
[2024-01-08 01:17] LABS: Alanine Aminotransferase 21 U/L (6-35); Albumin Level 4.3 g/dL (3.5-5.1); Alkaline Phosphatase 84 U/L (38-126); Anion Gap 10 mmol/L (4-12); Aspartate Amino Transferase 23 U/L (14-36); Bilirubin,Total 0.2 mg/dL (0.2-1.3); Blood Urea Nitrogen 14 mg/dL (7-17); Calcium 9.5 mg/dL (8.4-10.2); Carbon Dioxide 24 mmol/L (22-30); Chloride 103 mmol/L (98-107); Estimated CRCL calculation 124 ml/min; Estimated Glomerular Filt Rate > 60; Glucose 143 mg/dL (65-110); Lipase 96 U/L (23-300); Magnesium 1.4 mg/dL (1.6-2.3); Potassium 3.6 mmol/L (3.4-5.0); Sodium 137 mmol/L (137-145)
[2024-01-08 01:18] LABS: Triglycerides 1197 mg/dL (<150)
[2024-01-08] MEDS: PANTOPRAZOLE SODIUM IV 40 MG VIAL IV PUSH (01:49)
[2024-01-08] MEDS: MAGNESIUM SULF 2 GM/WATER 50ML 2 GM/50 ML BAG IVPB (01:49)
[2024-01-08] MEDS: HYDROmorphone HCL INJ (*CRX) 1 MG/ML SYR IV PUSH ×7 (01:51→20:08)
[2024-01-08] MEDS: INSULIN HUMAN REGULAR (*BKC) 100 UNITS in SODIUM CHLORIDE 0.9% IV 99 ML IV CONT (02:19)
[2024-01-08 03:11] LABS: Glucose Point of Care 97 mg/dl (65-105)
--- NOTE | 2024-01-08 03:13 | PC.NURSE ---
pt removed home insulin pump and dexcom. put it in her purse.
--- NOTE | 2024-01-08 03:27 | PM.IMHP ---
H&P: HPI History of Present Illness Date/Time: 01/08/24 03:27 Chief Complaint: abdominal pain Narrative: This is a 48-year-old female with past medical history significant for Yoandy Kim anemia syndrome, chronic pancreatitis, insulin-dependent diabetes mellitus, hypertriglyceridemia. Patient presents to the emergency room due to abdominal pain for 2 days with nausea vomiting unable to eat poor per orally intake. Preliminary workup was significant for triglyceride level of 1200. Patient has been admitted for further evaluation management and treatment. 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 Nausea Occult blood in stools PCOS (polycystic ovarian syndrome) Port-A-Cath in place Thyroid disorder Surgical History Surgical History History of appendectomy History of conization of cervix History of dilatation and curettage History of endometrial ablation History of exploratory laparotomy History of loop electrical excision procedure (LEEP) History of partial hysterectomy History of tonsillectomy History of tubal ligation History of wisdom tooth extraction Family History Family History Father Alcohol abuse Hypercholesteremia Hypertension Family history of alcoholism Family history of cardiovascular disease Diabetes mellitus Mother Hypercholesteremia Hypothyroid Cerebrovascular accident Family history of cardiovascular disease Diabetes mellitus Grandparent Skin cancer Colon cancer Heart disease Hypothyroid Cerebrovascular accident Sibling Autoimmune disorder Hypothyroid Kidney disorder Hypertension Diabetes mellitus Mother Family history of diabetes mellitus in first degree relative Family history of thyroid disease Father Family history of diabetes mellitus in first degree relative Patient's father is Other Family history of kidney disease Social History Social History Social History: She smokes a pack a day for the past 30 years. No alcohol or drug use. She has 2 dogs and a cat at home. Surrogate medical decision maker: José Miguel Jones, spouse. Code status: Full Smoking packs per day: 1 Smoking cigarettes per day: 20.0 Years smoked: 32 Smoking pack-years: 32.00 Smoking status: Current every day smoker Tobacco type: cigarettes Second hand tobacco smoke exposure: No Alcohol intake: never Drinks per week: 0 Substance use: never Substance use type: does not use Do You Feel Safe in your Home?: Yes Lack of Transportation: No Lack of Food: Never True Current Housing: I Have Housing Concerned About Future Housing: No Difficulty Paying Gas/Electric Bills: No Difficulty Paying for Meds: No Currently Unemployed: No Education: Associate Degree Difficulty w/ Childcare or Family Care: No Living arrangements: with family Spiritual care concerns: No Meds Home Medications and Allergies Home Medications Medication Instructions Recorded Confirmed Type fenofibrate nanocrystallized 145 145 mg PO DAILY #90 tabs 07/24/22 01/08/24 Rx mg tablet ondansetron 4 mg disintegrating 4 mg PO Q8H PRN nausea and 12/11/22 01/08/24 Rx tablet vomiting #30 tabs metformin 500 m
[2024-01-08] MEDS: DEXTROSE 5%/0.9% SOD CHL 1,000 ML 100 ML IV CONT (03:39)
--- NOTE | 2024-01-08 03:48 | PC.NURSE ---
benadryl 25mg iv push x 1 per edp rj. For pt bilateral eye red / swollen and stuffy sounding nose.
[2024-01-08] MEDS: diphenhydrAMINE HCl INJ 50 MG/ML VIAL 25 MG IV PUSH (03:52)
--- NOTE | 2024-01-08 04:00 | ADMGEN ---
This patient, Casandra Jones, was admitted to Intensive Care Unit-3. Patient/family oriented to hospital policies and general routines including ID bracelet, bed and alarms, visiting hours, pain management, procedures, bathroom and other care routines, personal items, smoking policy, room service/diet, and visiting hours. Information on how to activate the Rapid Response Team has been discussed. Patient/Family are encouraged to report perceived risks to care and to ask questions if they do not understand what they are told or what they should do.
[2024-01-08 04:25] LABS: Glucose Point of Care 162 mg/dl (65-105)
[2024-01-08 05:26] LABS: Glucose Point of Care 164 mg/dl (65-105)
[2024-01-08 06:28] LABS: Glucose Point of Care 166 mg/dl (65-105)
[2024-01-08 06:38] LABS: Basophils Percent Auto 0.3 % (0.2-1.2); Eosinophils Absolute Auto 0.1 K/mm3 (0-0.3); Eosinophils Percent Auto 1.1 % (0-4.4); Hematocrit 37.6 % (37.0-47.0); Hemoglobin 12.3 g/dL (12.0-15.0); Immature Granulocyte Absolute 0.06 K/mm3 (0.00-0.031); Immature Granulocyte Percent A 0.6 % (0-0.5); Lymphocytes Absolute Auto 2.83 K/mm3 (0.9-3.2); Lymphocytes Percent Auto 27.5 % (18.3-44.2); Mean Corpuscular HGB Conc 32.7 g/dl (32-36); Mean Corpuscular Hemoglobin 30.1 pg (26-34); Mean Corpuscular Volume 92.2 fl (80-100); Mean Platelet Volume 9.6 fl (7.4-10.4); Monocytes Absolute Auto 0.5 K/mm3 (0.1-0.6); Monocytes Percent Auto 5.2 % (2.6-8.5); Neutrophils Absolute Auto 6.7 K/mm3 (1.3-6.7); Neutrophils Percent Auto 65.3 % (45.5-73.1); Platelet Count Result 258 k/mm3 (150-375); Red Blood Count 4.08 M/mm3 (4.2-5.4); Red Cell Distribution Width 13.4 % (11.5-14.5); White Blood Count 10.3 K/mm3 (4.5-10.0)
[2024-01-08 06:59] LABS: Alanine Aminotransferase 20 U/L (6-35); Alkaline Phosphatase 81 U/L (38-126); Anion Gap 6 mmol/L (4-12); Aspartate Amino Transferase 22 U/L (14-36); Bilirubin,Total 0.2 mg/dL (0.2-1.3); Blood Urea Nitrogen 11 mg/dL (7-17); Calcium 8.2 mg/dL (8.4-10.2); Carbon Dioxide 24 mmol/L (22-30); Chloride 106 mmol/L (98-107); Estimated CRCL calculation 127 ml/min; Estimated Glomerular Filt Rate > 60; Glucose 155 mg/dL (65-110); Magnesium 1.8 mg/dL (1.6-2.3); Phosphorus 4.1 mg/dL (2.5-4.5); Potassium 3.9 mmol/L (3.4-5.0); Sodium 136 mmol/L (137-145)
[2024-01-08 07:05] LABS: Triglycerides 968 mg/dL (<150)
[2024-01-08 07:40] LABS: MRSA (PCR) NOT DETECTED (NOT DETECTE)
[2024-01-08 07:48] LABS: Glucose Point of Care 164 mg/dl (65-105)
--- NOTE | 2024-01-08 08:17 | WPDCNINT ---
Assessment and Plan Assessment and plan (1) Abdominal pain: Code(s): R10.9 - Unspecified abdominal pain Status: Acute Assessment and Plan: Secondary to chronic pancreatitis and hypertriglyceridemia. Lipase level is normal at this time Patient is being treated with insulin infusion and IV fluids for hypertriglyceridemia. Levels are not high warrant plasmapheresis at this time. Monitor triglyceride levels. Clear liquid diet Pain control Creon with meals (2) Chronic pancreatitis: Code(s): K86.1 - Other chronic pancreatitis Status: Acute Assessment and Plan: See above (3) Hypertriglyceridemia: Code(s): E78.1 - Pure hyperglyceridemia Status: Chronic Assessment and Plan: Continue statin and fenofibrate along with insulin infusion (4) Insulin dependent diabetes mellitus: Status: Chronic Assessment and Plan: Patient is on insulin pump at home which is currently off any she is on IV fluids with dextrose and IV insulin infusion. 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 Qualified Code(s): E03.8 - Other specified hypothyroidism; E06.3 - Autoimmune thyroiditis Code(s): E03.9 - Hypothyroidism, unspecified Status: Acute Assessment and Plan: Continue levothyroxine (6) GERD (gastroesophageal reflux disease): Qualifiers: Esophagitis presence: esophagitis presence not specified Qualified Code(s): K21.9 - Gastro-esophageal reflux disease without esophagitis Code(s): K21.9 - Gastro-esophageal reflux disease without esophagitis Status: Acute Assessment and Plan: Continue Protonix (7) CAD (coronary artery disease): Code(s): I25.10 - Atherosclerotic heart disease of [place] coronary artery without angina pectoris Status: Chronic Assessment and Plan: Continue aspirin Brilinta statin Patient is not on Justin/ARB or beta-lelo as an outpatient Plan DVT prophylaxis -Lovenox Stress ulcer prophylaxis -patient is on Protonix Nutrition -currently NPO. Will start clear liquid diet Code Status - Full Code Total Critical Care Time - 30 minutes Due to a high probability of clinically significant, life threatening deterioration, the patient required my highest level of preparedness to intervene emergently and I personally spent this critical care time directly and personally managing the patient. This critical care time included obtaining a history; examining the patient; pulse oximetry; ordering and review of studies; arranging urgent treatment with development of a management plan; evaluation of patient's response to treatment; frequent reassessment; and discussions with other providers. It was exclusive of separately billable procedures and treating other patients and teaching time. 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 [employer] Consult Note Consult date: 01/08/24 Reason for consult: Hyper Triglyceridemia HPI: Casandra Jones is a 48 year old female with significant past medical history of chronic pancreatitis, Chylomicronemia syndrome, GERD, hypertriglyceridemia, hypothyroidism, insulin-dependent diabetes, lipoprotein deficiency, polycystic ovarian syndrome, Port-A-Cath x2, coronary artery disease status post stent x3 in June 2023 at [facility], history of multiple plasmapheresis as outpatient and inpatient presented to the ED on 01/06 with complains of worsening off her chronic abdominal pain. Patient states that she does get chronic abdominal pain use hydrocodone at home but on Saturday the pain got worse and had been gradually getting worse over last 2 days until yesterday when the pain became 10/10. She states the chronic pain is burning but worsened to sharp pain and pointed towards epigastric area radiating to her left side of the abdomen. No further radiation no aggrav
[2024-01-08 09:23] LABS: Glucose Point of Care 156 mg/dl (65-105)
[2024-01-08] MEDS: metFORMIN HCL 500 MG TABLET 1000 MG PO ×2 (09:44→17:21)
[2024-01-08] MEDS: diphenhydrAMINE HCl CAP 25 MG CAPSULE PO ×3 (09:44→21:49)
[2024-01-08] MEDS: FENOFIBRATE NANOCRYSTALLIZED 145 MG TABLET PO (09:44)
[2024-01-08] MEDS: TICAGRELOR 90 MG TABLET PO ×2 (09:44→20:08)
[2024-01-08] MEDS: ASPIRIN 81 MG ENTERIC TABLET PO (09:44)
[2024-01-08] MEDS: PANTOPRAZOLE 40 MG TABLET PO ×2 (09:44→20:08)
[2024-01-08] MEDS: LEVOTHYROXINE SODIUM 100 MCG TABLET 200 MCG PO (09:44)
[2024-01-08] MEDS: CITALOPRAM HYDROBROMIDE 20 MG TABLET 40 MG PO (09:45)
[2024-01-08] MEDS: ENOXAPARIN 40 MG/0.4 ML SYRINGE SUB-Q (09:45)
--- NOTE | 2024-01-08 09:45 | PHAR ---
The patient is using her home med of Ssmkvp-Dxpbqmzd-Olixjrt [Creon] 36,000-114,000- 180,000 unit capsule. Med has been verified.
[2024-01-08] MEDS: DEXTROSE 5%/0.9% SOD CHL 1,000 ML 150 ML IV CONT ×2 (10:51→17:33)
[2024-01-08 11:19] LABS: Glucose Point of Care 211 mg/dl (65-105)
[2024-01-08 12:18] LABS: Glucose Point of Care 186 mg/dl (65-105)
[2024-01-08 13:28] LABS: Glucose Point of Care 173 mg/dl (65-105)
[2024-01-08 15:38] LABS: Glucose Point of Care 132 mg/dl (65-105)
[2024-01-08 17:29] LABS: Glucose Point of Care 133 mg/dl (65-105)
--- NOTE | 2024-01-08 17:31 | PM.IMPN ---
Progress Note: A&P Assessment and Plan (1) Abdominal pain: Code(s): R10.9 - Unspecified abdominal pain Status: Acute Assessment and Plan: Secondary to chronic pancreatitis and hypertriglyceridemia. Lipase level is normal at this time Patient is being treated with insulin infusion and IV fluids for hypertriglyceridemia. Levels are not high warrant plasmapheresis at this time. Monitor triglyceride levels. Clear liquid diet Pain control Creon with meals (2) Chronic pancreatitis: Code(s): K86.1 - Other chronic pancreatitis Status: Acute Assessment and Plan: See above (3) Hypertriglyceridemia: Code(s): E78.1 - Pure hyperglyceridemia Status: Chronic Assessment and Plan: Continue statin and fenofibrate along with insulin infusion (4) Insulin dependent diabetes mellitus: Status: Chronic Assessment and Plan: Patient is on insulin pump at home which is currently off any she is on IV fluids with dextrose and IV insulin infusion. 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 Qualified Code(s): E03.8 - Other specified hypothyroidism; E06.3 - Autoimmune thyroiditis Code(s): E03.9 - Hypothyroidism, unspecified Status: Acute Assessment and Plan: Continue levothyroxine (6) GERD (gastroesophageal reflux disease): Qualifiers: Esophagitis presence: esophagitis presence not specified Qualified Code(s): K21.9 - Gastro-esophageal reflux disease without esophagitis Code(s): K21.9 - Gastro-esophageal reflux disease without esophagitis Status: Acute Assessment and Plan: Continue Protonix (7) CAD (coronary artery disease): Code(s): I25.10 - Atherosclerotic heart disease of [place] coronary artery without angina pectoris Status: Chronic Assessment and Plan: Continue aspirin Brilinta statin Patient is not on Justin/ARB or beta-lelo as an outpatient Subjective Date/time seen: 01/08/24 17:31 Interval history: Patient was examined at the bedside. Reports improvement on her abdominal pain. Denies any nausea or vomiting. Review of Systems Review of Systems: epigastric abdominal pain, poor per orally intake, poor appetite, nausea, vomiting All systems reviewed & are unremarkable except as noted in HPI and below (HPI) Exam Narrative: General: Pt is alert awake and in NAD Lungs/Chest: Trachea central Clear BS B/L, No crackles or wheezing. Cardiac: RRR. Normal S1 S2. No murmurs Circulation: Pedal pulses are intact and symmetrical. Abdomen: Normal bowel sounds.. Soft. Mild tenderness in epigastric area. No guarding or rigidity. ND. Extremities: No clubbing, cyanosis or edema. Warm : Pettit in place Neurologic: Follows commands. Moves all 4 extremities PERRL Skin: No Rash Const: General: comfortable, no acute distress, well developed, alert, awake, uncomfortable ( rates pain 10 out of 10), average body habitus and overweight Nutritional Appearance: average body habitus and overweight Orientation/consciousness: patient oriented x3 HENMT: Head: normal to inspection, normocephalic and atraumatic Ears: hearing grossly normal bilaterally Face/Nose/Sinus: normal facial exam Face and sinus: normal facial exam Eyes: General: appearance normal, both eyes and all related structures Pupils: Equal, round and reactive pupils present EOM: EOMs intact bilaterally Neck: Neck: full ROM, no lymphadenopathy and no JVD Thyroid: thyroid normal Lymphatic: no lymphadenopathy noted Resp: Effort & Inspection: normal respiratory effort and able to speak in complete sentences Auscultation: clear to auscultation bilaterally Cardio: Jugular venous distension: no JVD Rate: regular rate Rhythm: regular rhythm Heart sounds: S1 normal heart sound present and S2 normal heart sound present GI: Inspection: normal to inspection : General: Yes deferred Skin:
[2024-01-08] MEDS: ATORVASTATIN 40 MG TABLET 80 MG PO (20:08)
[2024-01-08] MEDS: buPROPion HCL SR (12 HR) 150 MG TAB PO (20:08)
[2024-01-08] MEDS: traZODone HCL 50 MG TABLET 200 MG PO (20:08)
[2024-01-08 20:14] LABS: Glucose Point of Care 179 mg/dl (65-105)
[2024-01-08 21:04] LABS: Glucose Point of Care 140 mg/dl (65-105)
[2024-01-08 21:52] LABS: Glucose Point of Care 156 mg/dl (65-105)
[2024-01-08 22:55] LABS: Glucose Point of Care 179 mg/dl (65-105)
[2024-01-09] VITALS (19 sets, daily range): BP systolic 124–152; BP diastolic 63–94; PULSE 69–103; RESP 11–20; TEMP 36.6–36.9; O2SAT 93–100
[2024-01-09] MEDS: HYDROmorphone HCL INJ (*CRX) 1 MG/ML SYR IV PUSH ×8 (00:07→22:18)
[2024-01-09] MEDS: DEXTROSE 5%/0.9% SOD CHL 1,000 ML 150 ML IV CONT ×4 (00:07→19:24)
[2024-01-09 00:22] LABS: Glucose Point of Care 164 mg/dl (65-105)
[2024-01-09 01:01] LABS: Glucose Point of Care 148 mg/dl (65-105)
[2024-01-09 02:18] LABS: Glucose Point of Care 148 mg/dl (65-105)
[2024-01-09] MEDS: diphenhydrAMINE HCl CAP 25 MG CAPSULE PO ×3 (03:09→22:18)
[2024-01-09 03:14] LABS: Glucose Point of Care 156 mg/dl (65-105)
[2024-01-09 04:16] LABS: Hematocrit 34.4 % (37.0-47.0); Hemoglobin 11.2 g/dL (12.0-15.0); Mean Corpuscular HGB Conc 32.6 g/dl (32-36); Mean Corpuscular Hemoglobin 29.2 pg (26-34); Mean Corpuscular Volume 89.8 fl (80-100); Platelet Count Result 208 k/mm3 (150-375); Red Blood Count 3.83 M/mm3 (4.2-5.4); Red Cell Distribution Width 13.2 % (11.5-14.5); White Blood Count 6.8 K/mm3 (4.5-10.0)
[2024-01-09 04:28] LABS: Alanine Aminotransferase 18 U/L (6-35); Albumin Level 3.6 g/dL (3.5-5.1); Alkaline Phosphatase 63 U/L (38-126); Anion Gap 6 mmol/L (4-12); Aspartate Amino Transferase 20 U/L (14-36); Bilirubin,Total 0.2 mg/dL (0.2-1.3); Blood Urea Nitrogen 4 mg/dL (7-17); Calcium 8.4 mg/dL (8.4-10.2); Carbon Dioxide 25 mmol/L (22-30); Chloride 108 mmol/L (98-107); Estimated CRCL calculation 154 ml/min; Estimated Glomerular Filt Rate > 60; Glucose 145 mg/dL (65-110); Magnesium 1.4 mg/dL (1.6-2.3); Potassium 3.9 mmol/L (3.4-5.0); Sodium 139 mmol/L (137-145)
[2024-01-09 04:39] LABS: Triglycerides 870 mg/dL (<150)
[2024-01-09 05:06] LABS: Glucose Point of Care 142 mg/dl (65-105)
[2024-01-09 05:25] LABS: HCG Tumor Marker <5 mIU/mL
[2024-01-09] MEDS: LEVOTHYROXINE SODIUM 100 MCG TABLET 200 MCG PO (06:05)
[2024-01-09 06:11] LABS: Glucose Point of Care 142 mg/dl (65-105)
[2024-01-09 06:48] LABS: Glucose Point of Care 139 mg/dl (65-105)
[2024-01-09 07:05] LABS: Glucose Point of Care 156 mg/dl (65-105)
[2024-01-09 08:09] LABS: Glucose Point of Care 156 mg/dl (65-105)
[2024-01-09] MEDS: ONDANSETRON INJ 4 MG/2 ML VIAL IV PUSH ×4 (08:34→22:22)
--- NOTE | 2024-01-09 08:36 | WPDINTPN ---
Progress Note: A&P Assessment and Plan (1) Abdominal pain: Code(s): R10.9 - Unspecified abdominal pain Status: Acute Assessment and Plan: Secondary to chronic pancreatitis and hypertriglyceridemia. Lipase level is normal at this time Management of hypertriglyceridemia. As below Clear liquid diet at this time but will advance as tolerated Pain control Creon with meals (2) Chronic pancreatitis: Code(s): K86.1 - Other chronic pancreatitis Status: Acute Assessment and Plan: See above (3) Hypertriglyceridemia: Code(s): E78.1 - Pure hyperglyceridemia Status: Chronic Assessment and Plan: Patient has history of chronic hypertriglyceridemia and has received plasmapheresis in the past. Presented with level of 1197 and with insulin infusion level has improved to 870. Although level is not critically high it has not significantly improved with insulin infusion. Patient has ports for plasmapheresis which needs to be flushed anyways. Patient requesting plasmapheresis for faster improvement of triglyceride levels. Discussed with nephrology. Considering slow improvement with insulin infusion and past success with plasmapheresis will proceed with it at this time. Transition patient to insulin pump once insulin pump is available Continue fenofibrate and statin (4) Insulin dependent diabetes mellitus: Status: Chronic Assessment and Plan: Patient is on insulin pump at home which is currently off any she is on IV fluids with dextrose and IV insulin infusion. 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 Qualified Code(s): E03.8 - Other specified hypothyroidism; E06.3 - Autoimmune thyroiditis Code(s): E03.9 - Hypothyroidism, unspecified Status: Acute Assessment and Plan: Continue levothyroxine (6) GERD (gastroesophageal reflux disease): Qualifiers: Esophagitis presence: esophagitis presence not specified Qualified Code(s): K21.9 - Gastro-esophageal reflux disease without esophagitis Code(s): K21.9 - Gastro-esophageal reflux disease without esophagitis Status: Acute Assessment and Plan: Continue Protonix (7) CAD (coronary artery disease): Code(s): I25.10 - Atherosclerotic heart disease of [place] coronary artery without angina pectoris Status: Chronic Assessment and Plan: Continue aspirin Brilinta statin Patient is not on Justin/ARB or beta-lelo as an outpatient Plan DVT prophylaxis -Lovenox Stress ulcer prophylaxis -patient is on Protonix Nutrition -diabetic diet Code Status - Full Code Total Critical Care Time - 30 minutes Due to a high probability of clinically significant, life threatening deterioration, the patient required my highest level of preparedness to intervene emergently and I personally spent this critical care time directly and personally managing the patient. This critical care time included obtaining a history; examining the patient; pulse oximetry; ordering and review of studies; arranging urgent treatment with development of a management plan; evaluation of patient's response to treatment; frequent reassessment; and discussions with other providers. It was exclusive of separately billable procedures and treating other patients and teaching time. Please see Assessment and Plan section and the rest of the note for further information on patient assessment and treatment Subjective Date/time seen: 01/09/24 Overnight events reviewed. Afebrile Continues to be on insulin infusion Other Vitals acceptable Sinus rhythm on the monitor. She states that she is feeling better although she still complains of abdominal pain. Pain is 7/10. She still has some nausea but no vomiting overnight. She wants to try food. She is requesting plasmapheresis for quick improvement of her triglyceride levels. All the systems were reviewed and were negative
[2024-01-09 09:21] LABS: Glucose Point of Care 174 mg/dl (65-105)
[2024-01-09] MEDS: MAGNESIUM SULF 2 GM/WATER 50ML 2 GM/50 ML BAG IVPB (09:27)
[2024-01-09] MEDS: ENOXAPARIN 40 MG/0.4 ML SYRINGE SUB-Q (09:28)
[2024-01-09] MEDS: CITALOPRAM HYDROBROMIDE 20 MG TABLET 40 MG PO (09:28)
[2024-01-09] MEDS: ASPIRIN 81 MG ENTERIC TABLET PO (09:28)
[2024-01-09] MEDS: metFORMIN HCL 500 MG TABLET 1000 MG PO ×2 (09:28→19:19)
[2024-01-09] MEDS: PANTOPRAZOLE 40 MG TABLET PO ×2 (09:29→22:18)
[2024-01-09] MEDS: TICAGRELOR 90 MG TABLET PO ×2 (09:29→22:18)
[2024-01-09] MEDS: FENOFIBRATE NANOCRYSTALLIZED 145 MG TABLET PO (09:29)
[2024-01-09 10:20] LABS: Glucose Point of Care 165 mg/dl (65-105)
[2024-01-09 11:21] LABS: Glucose Point of Care 153 mg/dl (65-105)
[2024-01-09 12:09] LABS: Glucose Point of Care 161 mg/dl (65-105)
[2024-01-09 14:00] LABS: Glucose Point of Care 208 mg/dl (65-105)
[2024-01-09 15:40] LABS: Glucose Point of Care 181 mg/dl (65-105)
--- NOTE | 2024-01-09 15:51 | PM.IMPN ---
Progress Note: A&P Assessment and Plan (1) Abdominal pain: Code(s): R10.9 - Unspecified abdominal pain Status: Acute Assessment and Plan: Secondary to chronic pancreatitis and hypertriglyceridemia. Lipase level is normal at this time Management of hypertriglyceridemia. As below Clear liquid diet at this time but will advance as tolerated Plasmapheresis today Pain control Creon with meals (2) Chronic pancreatitis: Code(s): K86.1 - Other chronic pancreatitis Status: Acute Assessment and Plan: See above (3) Hypertriglyceridemia: Code(s): E78.1 - Pure hyperglyceridemia Status: Chronic Assessment and Plan: Patient has history of chronic hypertriglyceridemia and has received plasmapheresis in the past. Presented with level of 1197 and with insulin infusion level has improved to 870. Although level is not critically high it has not significantly improved with insulin infusion. Patient has ports for plasmapheresis which needs to be flushed anyways. Patient requesting plasmapheresis for faster improvement of triglyceride levels. Discussed with nephrology. Considering slow improvement with insulin infusion and past success with plasmapheresis will proceed with it at this time. Transition patient to insulin pump once insulin pump is available Continue fenofibrate and statin (4) Insulin dependent diabetes mellitus: Status: Chronic Assessment and Plan: Patient is on insulin pump at home which is currently off any she is on IV fluids with dextrose and IV insulin infusion. 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 Qualified Code(s): E03.8 - Other specified hypothyroidism; E06.3 - Autoimmune thyroiditis Code(s): E03.9 - Hypothyroidism, unspecified Status: Acute Assessment and Plan: Continue levothyroxine (6) GERD (gastroesophageal reflux disease): Qualifiers: Esophagitis presence: esophagitis presence not specified Qualified Code(s): K21.9 - Gastro-esophageal reflux disease without esophagitis Code(s): K21.9 - Gastro-esophageal reflux disease without esophagitis Status: Acute Assessment and Plan: Continue Protonix (7) CAD (coronary artery disease): Code(s): I25.10 - Atherosclerotic heart disease of [place] coronary artery without angina pectoris Status: Chronic Assessment and Plan: Continue aspirin Brilinta statin Patient is not on Justin/ARB or beta-lelo as an outpatient Subjective Date/time seen: 09/12/24 15:51 Interval history: According to the ICU team patient will be receiving plasmapheresis today. Patient reports of nausea. Patient current wants to stay on clear liquid diet. Review of Systems Review of Systems: epigastric abdominal pain, poor per orally intake, poor appetite, nausea, vomiting All systems reviewed & are unremarkable except as noted in HPI and below (HPI) Exam Narrative: General: Pt is alert awake and in NAD Lungs/Chest: Trachea central Clear BS B/L, No crackles or wheezing. Cardiac: RRR. Normal S1 S2. No murmurs Circulation: Pedal pulses are intact and symmetrical. Abdomen: Normal bowel sounds.. Soft. Mild tenderness in epigastric area. No guarding or rigidity. ND. Extremities: No clubbing, cyanosis or edema. Warm : Pettit in place Neurologic: Follows commands. Moves all 4 extremities PERRL Skin: No Rash Const: General: comfortable, no acute distress, well developed, alert, awake, uncomfortable ( rates pain 10 out of 10), average body habitus and overweight Nutritional Appearance: average body habitus and overweight Orientation/consciousness: patient oriented x3 HENMT: Head: normal to inspection, normocephalic and atraumatic Ears: hearing grossly normal bilaterally Face/Nose/Sinus: normal facial exam Face and sinus: normal facial exam Eyes: General: appearance normal, both eyes and all relat
[2024-01-09] MEDS: HEPARIN SODIUM, PORCINE 10,000 UNITS/10 ML VIAL 10000 UNITS IV PUSH (16:40)
[2024-01-09] MEDS: CALCIUM GLUC 2,000 MG/NS 100ML 2,000 MG/100 ML BAG 100 MG IVPB (16:40)
--- NOTE | 2024-01-09 17:05 | PM.CNNEP ---
Assessment and Plan Assessment and plan (1) Hypertriglyceridemia: Code(s): E78.1 - Pure hyperglyceridemia Status: Chronic Assessment and Plan: noted on admission but improved already on insulin gtt last session of plasmapheresis for this issue was 3 months ago appears symptomatic with regard to this issue and patient requesting plasmapheresis plasmapheresis today goal of plasmapheresis therapy would be to get triglyceride level less than 600 continue ongoing medical therapy (2) Abdominal pain: Qualifiers: Abdominal location: right upper quadrant Qualified Code(s): R10.11 - Right upper quadrant pain Code(s): R10.9 - Unspecified abdominal pain Status: Acute Assessment and Plan: due known history of chronic pancreatitis (?) CT of abd/pelvis without any acute pathology PRN pain medications I will continue follow the patient with you while she remains hospitalized make further recommendations as deemed necessary. Thank you for allowing me to participate in care this patient. History of Present Illness Reason for Consult Consult date: 01/09/24 Reason for consult: Other (plasmapheresis) Chief Complaint Chief complaint: Hypertriglyceridemia, Chylomicronemia History of Present Illness Narrative: The patient is a 48-year-old female with a past medical history as outlined below who presented to [facility] Emergency room few days ago with complaints of worsening of her chronic abdominal pain. As mentioned, she has chronic abdominal pain at baseline and uses hydrocodone to keep this symptom in check. However, approximately two days prior to her presentation to the ER, her abdominal pain acutely worsened and has gradually continued to deteriorate to the point where she has pain rated at 10 at a 10. she describes the pain as a burning sensation that then changed to a shortness localized to her epigastric area radiating to her left side. She made herself NPO as her concern was this is another possible bout of pancreatitis but this did not help her symptoms at all. Associated symptoms included nausea as well as some emesis. She denies any fever, chills, chest pain, shortness of breath, dizziness, lightheadedness or any other subjective symptoms. Given these ongoing symptoms as mentioned, she presented to the emergency room for further assessment. Workup and evaluation emergency room demonstrated the patient to be hemodynamically stable but in mild distress secondary to abdominal pain. Routine blood test demonstrated no significant abnormalities aside from a elevated triglyceride level 1197. she was subsequently started on IV fluids as well as an insulin infusion in the hopes that this would improve her triglyceride level and subsequent abdominal pain. She was transferred to the ICU for further evaluation and therapy Since her admission to the ICU, her triglyceride levels have improved but she continues to have issues and problems with abdominal pain. Renal consultation was requested for plasmapheresis for treatment of her hypertriglyceridemia. The patient has received plasmapheresis during her many hospitalizations in the past for her high triglyceride levels both here at [facility] and at [facility]. She has a power port line in place that has been used for this purpose. There have been some occasions where she has responded to more conservative therapy with regard to an insulin drip and oral medications as well. Although her triglyceride levels are improving, the patient requested plasmapheresis as this seemed to have helped her symptoms in the past. I saw the patient earlier today and currently while she is receiving plasmapheresis ( seen on plasmapheresis at 4:55PM). Review of Systems Review of Systems: As per HPI. [facility] Past Medical History Medical History Abnormal CT scan, esophagus Minh
--- NOTE | 2024-01-09 17:05 | PC.NURSE ---
Currently undergoing therapeutic apheresis treatment.
--- NOTE | 2024-01-09 18:54 | PC.NURSE ---
Procedure Note for Casandra Jones(1975) Procedure:TPE today DX:Hypertriglyceridemia Doctor:Dr.Sriraj Kaminski Patient's chart/labs/medications/notes and orders reviewed:Yes Procedure confirmed:Yes, with Marly[employer]) Right & Left Chest PFP X 2 with tips in the Right Atrium Patient signed informed consent after procedure was explained to her and all questions were answered TPE Started:1640 TPE Complete:1815 -lipid greenish-yellow plasma in collect bag -Patient tolerated apheresis with no adverse effects or events -patient is aware of next Catheter maintenance on 02/05/2024 at 0900 in the chest pain center OP Fluid removed-3386ml Fluid replaced-3523ml Fluid balance- +137ml Lucia RN
[2024-01-09 19:03] LABS: Glucose Point of Care 140 mg/dl (65-105)
[2024-01-09 20:35] LABS: Glucose Point of Care 201 mg/dl (65-105)
[2024-01-09] MEDS: ATORVASTATIN 40 MG TABLET 80 MG PO (22:17)
[2024-01-09] MEDS: buPROPion HCL SR (12 HR) 150 MG TAB PO (22:18)
[2024-01-09] MEDS: traZODone HCL 50 MG TABLET 200 MG PO (22:18)
[2024-01-10] VITALS (11 sets, daily range): BP systolic 99–127; BP diastolic 46–67; PULSE 71–101; RESP 10–20; TEMP 36.2–36.9; O2SAT 95–100; BMI 32.6
[2024-01-10 00:15] LABS: Glucose Point of Care 196 mg/dl (65-105)
[2024-01-10] MEDS: HYDROmorphone HCL INJ (*CRX) 1 MG/ML SYR IV PUSH ×7 (00:36→21:06)
[2024-01-10 04:45] LABS: Hematocrit 33.6 % (37.0-47.0); Hemoglobin 11.3 g/dL (12.0-15.0); Mean Corpuscular HGB Conc 33.6 g/dl (32-36); Mean Corpuscular Hemoglobin 29.9 pg (26-34); Mean Corpuscular Volume 88.9 fl (80-100); Mean Platelet Volume 9.4 fl (7.4-10.4); Platelet Count Result 204 k/mm3 (150-375); Red Blood Count 3.78 M/mm3 (4.2-5.4)
[2024-01-10 04:59] LABS: Alanine Aminotransferase 10 U/L (6-35); Albumin Level 3.9 g/dL (3.5-5.1); Alkaline Phosphatase 31 U/L (38-126); Anion Gap 11 mmol/L (4-12); Aspartate Amino Transferase 18 U/L (14-36); Bilirubin,Total 0.4 mg/dL (0.2-1.3); Blood Urea Nitrogen 4 mg/dL (7-17); Calcium 8.4 mg/dL (8.4-10.2); Carbon Dioxide 26 mmol/L (22-30); Chloride 104 mmol/L (98-107); Estimated CRCL calculation 127 ml/min; Estimated Glomerular Filt Rate > 60; Glucose 152 mg/dL (65-110); Magnesium 1.3 mg/dL (1.6-2.3); Potassium 3.9 mmol/L (3.4-5.0); Sodium 141 mmol/L (137-145); Triglycerides 366 mg/dL (<150)
[2024-01-10] MEDS: LEVOTHYROXINE SODIUM 100 MCG TABLET 200 MCG PO (06:07)
[2024-01-10] MEDS: ASPIRIN 81 MG ENTERIC TABLET PO (07:43)
[2024-01-10] MEDS: metFORMIN HCL 500 MG TABLET 1000 MG PO ×2 (07:43→17:39)
[2024-01-10] MEDS: diphenhydrAMINE HCl CAP 25 MG CAPSULE PO (07:43)
[2024-01-10] MEDS: CITALOPRAM HYDROBROMIDE 20 MG TABLET 40 MG PO (07:43)
[2024-01-10] MEDS: PANTOPRAZOLE 40 MG TABLET PO ×2 (07:43→21:07)
[2024-01-10] MEDS: FENOFIBRATE NANOCRYSTALLIZED 145 MG TABLET PO (07:43)
[2024-01-10] MEDS: TICAGRELOR 90 MG TABLET PO ×2 (07:44→21:07)
[2024-01-10] MEDS: ENOXAPARIN 40 MG/0.4 ML SYRINGE SUB-Q (07:44)
[2024-01-10 07:54] LABS: Glucose Point of Care 117 mg/dl (65-105)
[2024-01-10] MEDS: ONDANSETRON INJ 4 MG/2 ML VIAL IV PUSH ×4 (07:54→21:53)
[2024-01-10] MEDS: MAGNESIUM SULF 2 GM/WATER 50ML 2 GM/50 ML BAG IVPB (08:35)
--- NOTE | 2024-01-10 09:08 | WPDINTPN ---
Progress Note: A&P Assessment and Plan (1) Abdominal pain: Code(s): R10.9 - Unspecified abdominal pain Status: Acute Assessment and Plan: Secondary to chronic pancreatitis and hypertriglyceridemia. Lipase level is normal at this time Management of hypertriglyceridemia. As below Clear liquid diet at this time but will advance as tolerated Pain control Creon with meals (2) Chronic pancreatitis: Code(s): K86.1 - Other chronic pancreatitis Status: Acute Assessment and Plan: See above (3) Hypertriglyceridemia: Code(s): E78.1 - Pure hyperglyceridemia Status: Chronic Assessment and Plan: Patient has history of chronic hypertriglyceridemia and has received plasmapheresis in the past. Presented with level of 1197 and with insulin infusion level has improved to 870. 01/08 received a session of plasmapheresis and insulin drip was discontinued 01/09 triglyceride level improved to 366. 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 Qualified Code(s): E03.8 - Other specified hypothyroidism; E06.3 - Autoimmune thyroiditis Code(s): E03.9 - Hypothyroidism, unspecified Status: Acute Assessment and Plan: Continue levothyroxine (6) GERD (gastroesophageal reflux disease): Qualifiers: Esophagitis presence: esophagitis presence not specified Qualified Code(s): K21.9 - Gastro-esophageal reflux disease without esophagitis Code(s): K21.9 - Gastro-esophageal reflux disease without esophagitis Status: Acute Assessment and Plan: Continue Protonix (7) CAD (coronary artery disease): Code(s): I25.10 - Atherosclerotic heart disease of [place] coronary artery without angina pectoris Status: Chronic Assessment and Plan: Continue aspirin Brilinta statin Patient is not on Justin/ARB or beta-lelo as an outpatient Plan DVT prophylaxis -Lovenox Stress ulcer prophylaxis -patient is on Protonix Nutrition -diabetic diet Code Status - Full Code Transfer out of ICU Subjective Date/time seen: 01/10/24 Patient received plasmapheresis yesterday. She states she feels better than yesterday but not fully back to baseline. States the pain is better rates at 6/10. She still had some nausea yesterday and her p.o. intake was not back to baseline. She was able to get her insulin pump and was transition to insulin pump role insulin infusion last night. Otherwise vitals have been stable. She is afebrile she is on room air and good urine output.. Denies any other complaints. All other systems were reviewed and were negative. Review of Systems Review of Systems: All systems reviewed & are unremarkable except as noted in HPI and below (HPI) Exam Narrative: General: Pt is alert awake and in NAD Lungs/Chest: Trachea central Clear BS B/L, No crackles or wheezing. Cardiac: RRR. Normal S1 S2. No murmurs Circulation: Pedal pulses are intact and symmetrical. Abdomen: Normal bowel sounds.. Soft. Mild tenderness in epigastric area. No guarding or rigidity. ND. Extremities: No clubbing, cyanosis or edema. Warm : Pettit in place Neurologic: Follows commands. Moves all 4 extremities PERRL Skin: No Rash Objective Data Vital Signs Vital Signs: Vital Signs - 24 hr 01/09/24 10:00 01/09/24 10:00 01/09/24 12:00 Temperature Pulse Rate 81 81 74 Respiratory Rate 15 Blood Pressure Pulse Oximetry 96 Oxygen Delivery 01/09/24 12:00 01/09/24 12:00 01/09/24 14:00 Temperature 36.6 C Pulse Rate 74 87 Respiratory Rate 12 Blood Pressure 126/69 Pulse Oximetry 99 Oxygen Delivery Room Air 01/09/24 14:00 01/09/24 16:00 01/09/24 16:00 Temperature Pulse Rate 91 86 88 Respiratory Rate 18 11 L
--- NOTE | 2024-01-10 09:50 | PM.PNNEP ---
Progress Note: A&P Assessment and Plan (1) Hypertriglyceridemia: Code(s): E78.1 - Pure hyperglyceridemia Status: Chronic Assessment and Plan: noted on admission s/p plasmapheresis yesterday goal of plasmapheresis therapy would be to get triglyceride level less than 600 - this has been achieved continue ongoing medical therapy (2) Abdominal pain: Qualifiers: Abdominal location: right upper quadrant Qualified Code(s): R10.11 - Right upper quadrant pain Code(s): R10.9 - Unspecified abdominal pain Status: Acute Assessment and Plan: due known history of chronic pancreatitis (?) CT of abd/pelvis without any acute pathology PRN pain medications Not much else to add -- will continue to follow from a distance. Subjective Date/time seen: 01/10/24 09:50 Interval history: Follow-up for hypertriglyceridemia. Status post plasmapheresis yesterday afternoon and tolerated the procedure reasonably well; abdominal pain is better but still present; weaned off insulin gtt and transitioned back to her insulin pump; overall, she feels better but not to her usual baseline status; no other acute complaints voiced on this visit. Exam Narrative: General: WD/WN female in NAD Heart: normal S1 and S2; no rub Lungs: clear to auscultation Abdomen: soft, mild TTP present; positive bowel sounds Extremities: no cyanosis or clubbing; trace edema Skin: warm and dry Objective Data Vital Signs Vital Signs: Vital Signs Temp Pulse Resp BP Pulse Ox O2 Del Method 01/10/24 08:00 72 01/10/24 08:00 98.4 F 71 10 L 127/61 98 01/10/24 08:00 101 H 18 100 Room Air 01/10/24 06:00 85 15 100/46 L 95 01/10/24 06:00 89 01/10/24 04:00 96 01/10/24 04:15 91 14 98 Room Air 01/10/24 04:00 98.2 F 91 14 99/47 L 98 01/10/24 02:00 86 15 107/63 95 01/10/24 02:00 88 01/10/24 00:00 89 01/10/24 00:00 91 15 96 Room Air 01/10/24 00:00 98.5 F 91 15 113/62 96 01/09/24 22:00 88 01/09/24 20:00 98 01/09/24 20:00 100 20 97 Room Air 01/09/24 22:25 100 20 136/68 97 01/09/24 20:00 98.1 F 103 H 20 124/94 H 100 01/09/24 18:00 102 H 17 135/85 97 01/09/24 18:00 102 H 01/09/24 17:00 98.4 F 70 15 142/64 H 01/09/24 18:15 98.2 F 83 17 135/86 01/09/24 17:45 98.2 F 78 16 130/63 01/09/24 17:15 98.4 F 75 15 128/81 01/09/24 16:40 98.4 F 77 16 151/72 H 95 Intake/Output Intake/Output: Intake & Output 01/07/24 01/08/24 01/09/24 01/10/24 23:59 23:59 23:59 23:59 Intake Total 6003.4 4911.4 700 Output Total 0 Balance 6003.4 4911.4 700 Meds/Results Medications: Active Medications Generic Name Dose Route Start Last Admin Trade Name Freq PRN Reason Stop Dose Admin Aspirin 81 mg 01/08/24 09:00 01/10/24 07:43 Aspirin 81 Mg Enteric Tablet PO 81 mg QAM RAPHAEL Administration Atorvastatin Calcium 80 mg 01/08/24 21:00 01/09/24 22:17 Atorvastatin 40 Mg Tablet PO 80 mg HS RAPHAEL Administration Bupropion HCl 150 mg 01/08/24 21:00 01/09/24 22:18 Bupropion Hcl Sr (12 Hr) 150 Mg Tab PO 150 mg HS RAPHAEL Administration Citalopram Hydrobromide 40 mg 01/08/24 09:00 01/10/24 07:43 Citalopram Hydrobromide 20 Mg Tablet PO 40 mg DAILY RAPHAEL Administration Dextrose 12.5 gm 01/09/24 20:30 Dextrose 50% 25 Gm/50 Ml Syringe IV PUSH PRN PRN Hypoglycemia Protocol Diphenhydramine HCl 25 mg 01/08/24 08:03 01/10/24 07:43 Diphenhydramine Hcl Cap 25 Mg Capsule PO 25 mg Q4H PRN Administration Itching Enoxaparin Sodium 40 mg 01/08/24 09:00 01/10/24 07:44 Enoxaparin 40 Mg/0.4 Ml Syringe SUB-Q 40 mg DAILY RAPHAEL Administration Fenofibrate 145 mg 01/08/24 09:00 01/10/24 07:43 Fenofibrate Nanocrystallized 145 Mg Tablet PO 145 mg DAILY RAPHAEL Administration Glucagon 1
--- NOTE | 2024-01-10 10:02 | PC.NURSE ---
Transferred patient to [facility] at 0950, report given to CLAU Prabhakar
--- NOTE | 2024-01-10 11:15 | PC.NURSE ---
Pt requested apple juice for BS result. Provided. Pt resting without complaints.
[2024-01-10 11:22] LABS: Glucose Point of Care 65 mg/dl (65-105)
[2024-01-10 16:44] LABS: Glucose Point of Care 104 mg/dl (65-105)
--- NOTE | 2024-01-10 17:34 | PM.IMPN ---
Progress Note: A&P Assessment and Plan (1) Abdominal pain: Code(s): R10.9 - Unspecified abdominal pain Status: Acute Assessment and Plan: Secondary to chronic pancreatitis and hypertriglyceridemia. Lipase level is normal at this time Management of hypertriglyceridemia. As below Clear liquid diet at this time but will advance as tolerated Pain control Creon with meals (2) Chronic pancreatitis: Code(s): K86.1 - Other chronic pancreatitis Status: Acute Assessment and Plan: See above (3) Hypertriglyceridemia: Code(s): E78.1 - Pure hyperglyceridemia Status: Chronic Assessment and Plan: Patient has history of chronic hypertriglyceridemia and has received plasmapheresis in the past. Presented with level of 1197 and with insulin infusion level has improved to 870. 01/08 received a session of plasmapheresis and insulin drip was discontinued 01/09 triglyceride level improved to 366. 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 Qualified Code(s): E03.8 - Other specified hypothyroidism; E06.3 - Autoimmune thyroiditis Code(s): E03.9 - Hypothyroidism, unspecified Status: Acute Assessment and Plan: Continue levothyroxine (6) GERD (gastroesophageal reflux disease): Qualifiers: Esophagitis presence: esophagitis presence not specified Qualified Code(s): K21.9 - Gastro-esophageal reflux disease without esophagitis Code(s): K21.9 - Gastro-esophageal reflux disease without esophagitis Status: Acute Assessment and Plan: Continue Protonix (7) CAD (coronary artery disease): Code(s): I25.10 - Atherosclerotic heart disease of [place] coronary artery without angina pectoris Status: Chronic Assessment and Plan: Continue aspirin Brilinta statin Patient is not on Justin/ARB or beta-lelo as an outpatient Subjective Date/time seen: 01/10/24 17:34 Interval history: Patient has been downgraded from ICU. Patient is able to tolerate oral fluids. Patient triglycerides significantly improve to 366 after the plasmapheresis transfusion Review of Systems Review of Systems: epigastric abdominal pain, poor per orally intake, poor appetite, nausea, vomiting All systems reviewed & are unremarkable except as noted in HPI and below (HPI) Exam Narrative: General: Pt is alert awake and in NAD Lungs/Chest: Trachea central Clear BS B/L, No crackles or wheezing. Cardiac: RRR. Normal S1 S2. No murmurs Circulation: Pedal pulses are intact and symmetrical. Abdomen: Normal bowel sounds.. Soft. Mild tenderness in epigastric area. No guarding or rigidity. ND. Extremities: No clubbing, cyanosis or edema. Warm : Pettit in place Neurologic: Follows commands. Moves all 4 extremities PERRL Skin: No Rash Const: General: comfortable, no acute distress, well developed, alert, awake, uncomfortable ( rates pain 10 out of 10), average body habitus and overweight Nutritional Appearance: average body habitus and overweight Orientation/consciousness: patient oriented x3 HENMT: Head: normal to inspection, normocephalic and atraumatic Ears: hearing grossly normal bilaterally Face/Nose/Sinus: normal facial exam Face and sinus: normal facial exam Eyes: General: appearance normal, both eyes and all related structures Pupils: Equal, round and reactive pupils present EOM: EOMs intact bilaterally Neck: Neck: full ROM, no lymphadenopathy and no JVD Thyroid: thyroid normal Lymphatic: no lymphadenopathy noted Resp: Effort & Inspection: normal respiratory effort and able to speak in complete sentences Auscultation: clear to auscultation bilaterally Cardio: Jugular venous distension: no JVD Rate: regular rate Rhythm: regular
[2024-01-10 19:30] LABS: Glucose Point of Care 148 mg/dl (65-105)
[2024-01-10] MEDS: traZODone HCL 50 MG TABLET 200 MG PO (21:07)
[2024-01-10] MEDS: buPROPion HCL SR (12 HR) 150 MG TAB PO (21:07)
[2024-01-10] MEDS: ATORVASTATIN 40 MG TABLET 80 MG PO (21:07)
[2024-01-11] VITALS: PULSE 94
[2024-01-11] MEDS: HYDROmorphone HCL INJ (*CRX) 1 MG/ML SYR IV PUSH ×4 (00:03→09:48)
[2024-01-11] MEDS: diphenhydrAMINE HCl CAP 25 MG CAPSULE PO (00:07)
[2024-01-11 04:00] VITALS: BP 105/60; PULSE 90; PULSE 93; RESP 18; TEMP 36.1; O2SAT 100
[2024-01-11] MEDS: LEVOTHYROXINE SODIUM 100 MCG TABLET 200 MCG PO (06:02)
[2024-01-11] MEDS: ONDANSETRON INJ 4 MG/2 ML VIAL IV PUSH (06:07)
[2024-01-11 07:03] LABS: Hematocrit 32.4 % (37.0-47.0); Hemoglobin 10.8 g/dL (12.0-15.0); Mean Corpuscular HGB Conc 33.3 g/dl (32-36); Mean Corpuscular Hemoglobin 29.4 pg (26-34); Mean Corpuscular Volume 88.3 fl (80-100); Mean Platelet Volume 9.5 fl (7.4-10.4); Platelet Count Result 200 k/mm3 (150-375); Red Blood Count 3.67 M/mm3 (4.2-5.4); Red Cell Distribution Width 12.8 % (11.5-14.5); White Blood Count 6.9 K/mm3 (4.5-10.0)
[2024-01-11 07:21] LABS: Alanine Aminotransferase 13 U/L (6-35); Albumin Level 3.5 g/dL (3.5-5.1); Alkaline Phosphatase 53 U/L (38-126); Anion Gap 9 mmol/L (4-12); Aspartate Amino Transferase 21 U/L (14-36); Bilirubin,Total 0.6 mg/dL (0.2-1.3); Blood Urea Nitrogen 8 mg/dL (7-17); Carbon Dioxide 25 mmol/L (22-30); Chloride 102 mmol/L (98-107); Estimated CRCL calculation 108 ml/min; Estimated Glomerular Filt Rate > 60; Glucose 180 mg/dL (65-110); Magnesium 1.3 mg/dL (1.6-2.3); Potassium 3.8 mmol/L (3.4-5.0); Sodium 136 mmol/L (137-145); Triglycerides 472 mg/dL (<150)
[2024-01-11 07:33] LABS: Glucose Point of Care 163 mg/dl (65-105)
[2024-01-11 08:00] VITALS: BP 126/65; PULSE 83; PULSE 90; RESP 16; TEMP 36.2; O2SAT 96
[2024-01-11] MEDS: metFORMIN HCL 500 MG TABLET 1000 MG PO (08:46)
[2024-01-11] MEDS: FENOFIBRATE NANOCRYSTALLIZED 145 MG TABLET PO (08:47)
[2024-01-11] MEDS: PANTOPRAZOLE 40 MG TABLET PO (08:47)
[2024-01-11] MEDS: ASPIRIN 81 MG ENTERIC TABLET PO (08:47)
[2024-01-11] MEDS: CITALOPRAM HYDROBROMIDE 20 MG TABLET 40 MG PO (08:47)
[2024-01-11] MEDS: TICAGRELOR 90 MG TABLET PO (08:47)
[2024-01-11] MEDS: ENOXAPARIN 40 MG/0.4 ML SYRINGE SUB-Q (08:47)
[2024-01-11 10:18] VITALS: TEMP 36.2
[2024-01-11 11:44] LABS: Glucose Point of Care 185 mg/dl (65-105)
[2024-01-11 12:00] VITALS: BP 124/71; PULSE 80; PULSE 94; RESP 18; TEMP 36.1; O2SAT 97
--- NOTE | 2024-01-11 12:18 | PM.DS ---
DS: Admitting Diagnosis Discharge Date 01/11/2024 Admitting Diagnosis Hypertriglyceridemia, Chylomicronemia syndrome, Epigastric abdominal pain, Hypomagnesemia DS: Discharge Diagnosis Discharge Diagnosis (1) Abdominal pain: Code(s): R10.9 - Unspecified abdominal pain Status: Acute Assessment and Plan: Secondary to chronic pancreatitis and hypertriglyceridemia. Lipase level is normal at this time Management of hypertriglyceridemia. As below Clear liquid diet at this time but will advance as tolerated Pain control Creon with meals (2) Chronic pancreatitis: Code(s): K86.1 - Other chronic pancreatitis Status: Acute Assessment and Plan: See above (3) Hypertriglyceridemia: Code(s): E78.1 - Pure hyperglyceridemia Status: Chronic Assessment and Plan: Patient has history of chronic hypertriglyceridemia and has received plasmapheresis in the past. Presented with level of 1197 and with insulin infusion level has improved to 870. 01/08 received a session of plasmapheresis and insulin drip was discontinued 01/09 triglyceride level improved to 366. 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 Qualified Code(s): E03.8 - Other specified hypothyroidism; E06.3 - Autoimmune thyroiditis Code(s): E03.9 - Hypothyroidism, unspecified Status: Acute Assessment and Plan: Continue levothyroxine (6) GERD (gastroesophageal reflux disease): Qualifiers: Esophagitis presence: esophagitis presence not specified Qualified Code(s): K21.9 - Gastro-esophageal reflux disease without esophagitis Code(s): K21.9 - Gastro-esophageal reflux disease without esophagitis Status: Acute Assessment and Plan: Continue Protonix (7) CAD (coronary artery disease): Code(s): I25.10 - Atherosclerotic heart disease of [place] coronary artery without angina pectoris Status: Chronic Assessment and Plan: Continue aspirin Brilinta statin Patient is not on Justin/ARB or beta-lelo as an outpatient DS: Summary Hospital Course Hospital Course: This is a 48-year-old female with past medical history significant for [place] anemia syndrome, chronic pancreatitis, insulin-dependent diabetes mellitus, hypertriglyceridemia. Patient presents to the emergency room due to abdominal pain for 2 days with nausea vomiting unable to eat poor per orally intake. Preliminary workup was significant for triglyceride level of 1200. Patient has been admitted for further evaluation management and treatment.01/08 received a session of plasmapheresis and insulin drip was discontinued.01/09 triglyceride level improved to 366.01/10 TG shows 472. As per hospice team lead goal of plasmapheresis therapy would be to get triglyceride level less than 600 - this has been achieved.Patient tolerate food well without any nausea,vomiting or abdominal pain. Discussed the case with the hospice team lead who agrees with the plan Status at Discharge Cognitive/behavioral status at discharge: stable Time Spent with Patient Time attestation: Total time spent providing and/or coordinating discharge services:45mins Exam Narrative: General: Pt is alert awake and in NAD Lungs/Chest: Trachea central Clear BS B/L, No crackles or wheezing. Cardiac: RRR. Normal S1 S2. No murmurs Circulation: Pedal pulses are intact and symmetrical. Abdomen: Normal bowel sounds.. Soft. Mild tenderness in epigastric area. No guarding or rigidity. ND. Extremities: No clubbing, cyanosis or edema. Warm : Pettit in place Neurologic: Follows commands. Moves all 4 extremities PERRL Skin: No Rash Const: General: comfortable, no acute distress, well developed, alert, awake, uncomfortable ( rates pain 10 out of 10), av
[2024-01-11] MEDS: ACETAMINOPHEN 325 MG TABLET 650 MG PO (12:53)
--- NOTE | 2024-01-11 14:05 | PC.NURSE ---
On 01/11/24, the CHEMICAL ENGINEERING TECHNOLOGIST, Puja Domingo, provided care and completed [employer] documentation on this patient. I have reviewed the CHEMICAL ENGINEERING TECHNOLOGIST's documentation and agree with the findings.
== END 2024-01-11 14:05 | disposition home or self-care (01) | DRG 642 ==
LOC: ANHED 01-08 01:47 → ANHICU 01-08 02:59 → ANH3MEDSUR 01-10 10:02
PROVIDERS: Emergency Medicine; Internal Medicine; Internal Medicine Nephrology; Admitting Provider Internal Medicine; Emergency Provider Physician Assistant; PCP Nurse Practitioner; Visit Provider General Practice
DX: E78.3 Hyperchylomicronemia (principal); K86.1 Other chronic pancreatitis; E78.1 Pure hyperglyceridemia; I25.10 Atherosclerotic heart disease of native coronary artery without angina pectoris; E11.9 Type 2 diabetes mellitus without complications; E78.6 Lipoprotein deficiency; E78.5 Hyperlipidemia, unspecified; E28.2 Polycystic ovarian syndrome; K21.9 Gastro-esophageal reflux disease without esophagitis; F17.210 Nicotine dependence, cigarettes, uncomplicated; F41.9 Anxiety disorder, unspecified; Z96.41 Presence of insulin pump (external) (internal); Z95.5 Presence of coronary angioplasty implant and graft; Z79.4 Long term (current) use of insulin
CPT/HCPCS: 36415; 36514; 80053; 81003; 82010; 82948; 83605; 83690; 83735; 84100; 84478; 84484; 84702; 85025; 85027; 85610; 85730; 87641; 93005; 96361; 96365; 96366; 96367; 96375; 96376; 99285; A9270; G0378; J0613; J1170; J1200; J1644; J1650; J1815; J2270; J2405; J2470; J3475; J7030; J7042; P9041; P9045

== ENCOUNTER 2024-01-17 11:30 | Outpatient (CLI) | payer MEDICARE, SELFPAY ==
--- NOTE | ~2024-01-17 | XR_ITS ---
XR shoulder LT min 2V Ordering provider: Jose Zuniga APRN History: . FALL X 1 MONTH.LIMITED ROM,CANT ABDUCT ARM. ANT/LAT PAIN . Comparison: None. FINDINGS: BONES: No acute fracture or dislocation. JOINT SPACES: The acromioclavicular joint is normal. The glenohumeral joint is normal. SOFT TISSUES: Normal. Central lines are seen in both sides of the chest. IMPRESSION: No acute osseous abnormality left shoulder. Reviewed, dictated and finalized at location A.
== END 2024-01-17 11:31 | disposition home or self-care (01) ==
PROVIDERS: PCP Nurse Practitioner; Visit Provider Nurse Practitioner
DX: M25.512 Pain in left shoulder (principal)
CPT/HCPCS: 73030

== ENCOUNTER 2024-02-12 13:44 | Outpatient (RCR) | payer MEDICARE, SELFPAY ==
[2023-12-25] MEDS: HEPARIN SODIUM, PORCINE 10,000 UNITS/10 ML VIAL 10000 UNITS XX (10:05)
--- NOTE | 2023-12-25 10:27 | PC.NURSE ---
Location:[facility] Name:Casandra Jones :1975 Procedure:PFP X 2 catheter maintenance Q once a month Doctor:Dr.Eddie Marinelli/Jose Zuniga [employer] DX:hypertriglyrides Patient's chart/labs/medications/notes and orders reviewed:Yes Procedure confirmed:Yes, with Vaishali(Chest Pain center RN) Pre-procedure assessment:At 0925-Patient ambulated into the chest pain center on own. -patient is alert and oriented X 4, has no c/o of joint or back pain, pre-procedure -apheresis needle X 2 placed in Right & Left PFP X 2 -apheresis needle X 2 flushes well and aspirates blood back with no issues Arrival:0925 Departure:1005 V/S-T-97.7F,R-20,P-89, BP-139/66 and O2 sat-99% on room air Post-procedure: Patient tolerated PFP X 2 catheter maintenance with no adverse effects or events. -apheresis needle X 2 removed and 15 minutes of strong and steady pressure applied to old needle site X 2 -Right and Left PFP DSG X 2-dry and intact, no drainage or redness seen or reported -Next scheduled PFP X 2 catheter maintenance:01/22/2024 at 0900(Patient is aware of next procedure) -At 1005-Patient ambulated out of the Chest Pain Center on own.
[2024-02-12] MEDS: HEPARIN SODIUM, PORCINE 10,000 UNITS/10 ML VIAL 1000 UNITS IV PUSH (14:30)
--- NOTE | 2024-02-12 15:21 | PC.NURSE ---
Procedure:Right and Left chest PFP X 2 maintenance Patient:Casandra Jones(:1975) Date:02/12/2024 Doctor:Jose Zuniga APRN Patient's chart/labs/medication/notes and orders reviwed:Yes Today's procedure confirmed:Yes, with Karen Scott(HOSPICE PATIENT CARE SECRETARY Director) Pre-procedure assessment:At 1345-Patient ambulated into the OP chest pain center on own. -patient is alert and oriented X 4, has no c/o headache, back or joint pain, pre-procedure -apheresis needle X 2 placed into the right and left chest PFP X 2, both needles flushed well and aspirated blood back with no issues. -apheresis needle X 2 removed and 10 minutes of strong and steady pressure applied to old needle site X 2 -Right and Left chest PFP DSG X 2-dry and intact, no drainage or redness seen or reported -procedure V/S-T-97.7F,R-18,P-104,BP-122/74 and O2 sat-98% on room air Patient tolerated Right and Left chest PFP catheter maintenance with no adverse effects or events. Patient is aware of next apheresis catheter maintenance on 03/11/2024 at 0945 Patient ambulated out of the OP chest pain center on own. Yonas RN:Karen Scott(HOSPICE PATIENT CARE SECRETARY Director) CARLOS RN:Lara RN
--- NOTE | 2024-03-09 10:08 | PC.NURSE ---
Procedure:Apheresis Catheter Maintenance PATIENT:Casandra Jones :1975 DOCTOR:Dr.Eddie Marinelli DX:Hypertriglyceridemia ACCESS:Right & Left Chest Apheresis PFP X 2 with tips in the Right Atrium and SVC Patient's Chart/Labs/Medications/Notes and orders reviewed:Yes Today's Procedure Confirmed:Yes, with Betty([facility] RN) Assessment pre-procedure: Patient ambulated into the [facility] on own, with her (José Miguel). -patient is alert and oriented X 4, has no back, joint or headache pain, pre-procedure TIMES Start:924 End:954 Procedure V/S:T-98.2F, R-18, P-87, BP-114/74 and O2 Sat-100% on Room Air -Apheresis needle X 2 placed into Right & Left Chest PFP X 2-both needles flushed well and aspirated blood back with no issues -Apheresis needle X 2 removed after instilling 5ml of heparin (1000 units of heparin per ml) into each port -15 minutes of strong and steady pressure applied to old needle site X 2 -Right & Left Chest Apheresis PFP X 2 DSG_dry and intact, no drainage or redness seen or reported Next Catheter Maintenance Scheduled:04/06/2024 at 0930 -Patient and (José Miguel) are aware of next Catheter Maintenance -Patient and ambualted out of the [facility] on own [facility] RN:Betty GONZALEZ RN:Lucia OLGUIN
== END 2024-03-24 23:59 | disposition home or self-care (01) ==
LOC: ANHCATHLAB 13:44
PROVIDERS: PCP Nurse Practitioner; Visit Provider Nurse Practitioner
DX: E78.1 Pure hyperglyceridemia (principal)
CPT/HCPCS: J1644

== ENCOUNTER 2024-02-19 20:50 | Inpatient (IN) | payer MEDICARE, SELFPAY ==
--- NOTE | ~2024-02-19 | CT_ITS ---
EXAMINATION: CT abdomen pelvis w con DATE: 02/19/2024 23:27 INDICATION: Left upper quadrant abdominal pain TECHNIQUE: Computed tomography (CT) of the abdomen and pelvis was performed with 100 mL Omnipaque-350 intravenous contrast. Automated exposure control and iterative reconstruction technique were employe d. The dose-length product was 1096.91 mGy-cm. COMPARISON: None FINDINGS: Dependent atelectasis in the bilateral lower lobes. Heart size is normal. Atherosclerotic coronary [place] calcifications and/or stenting. Distal tips of a pair of central venous catheter is seen at the high right atrium. No pericardial effusion. Small focus of hepatic steatosis at the ligamentum teres. Gallbladder, pancreas, right kidney and bilateral adrenal glands are normal. The location of the lef t kidney with the hilum oriented anterolaterally. Spleen is normal with no interval change in a chron ic small crescentic fluid collection along its caudal margin which can be seen dating back to 04/03/20 22. Bladder is normal. Bilateral adnexa are unremarkable. The uterus is not identified and has likely been surgically resected. There is mild scattered colonic diverticulosis without adjacent comparison to suggest diverticulitis. No bowel obstruction. No free intraperitoneal gas or fluid. No pathologic ally enlarged abdominal or pelvic lymphadenopathy. Mild thoracolumbar spondylosis. IMPRESSION: 1. No acute intra-abdominal/pelvic process. Reviewed, dictated and finalized at location A.
[2024-02-19 20:57] VITALS: BP 123/58; PULSE 108; RESP 18; TEMP 36.6; O2SAT 98
[2024-02-19 21:57] LABS: Basophils Percent Auto 0.3 % (0.2-1.2); Eosinophils Absolute Auto 0.1 K/mm3 (0-0.3); Eosinophils Percent Auto 0.5 % (0-4.4); Hematocrit 36.6 % (37.0-47.0); Hemoglobin 12.5 g/dL (12.0-15.0); Immature Granulocyte Absolute 0.13 K/mm3 (0.00-0.031); Immature Granulocyte Percent A 1.4 % (0-0.5); Lymphocytes Percent Auto 27.9 % (18.3-44.2); Mean Corpuscular HGB Conc 34.2 g/dl (32-36); Mean Corpuscular Hemoglobin 29.8 pg (26-34); Mean Corpuscular Volume 87.1 fl (80-100); Mean Platelet Volume 8.9 fl (7.4-10.4); Monocytes Absolute Auto 0.5 K/mm3 (0.1-0.6); Neutrophils Percent Auto 64.9 % (45.5-73.1); Platelet Count Result 276 k/mm3 (150-375); Red Cell Distribution Width 13.9 % (11.5-14.5); White Blood Count 9.3 K/mm3 (4.5-10.0)
[2024-02-19 21:59] LABS: Add Urine Microscopic? NO; Appearance Urine Clear (Clear); Bilirubin Urine Negative (Negative); Blood Urine Negative (Negative); Color Urine Yellow (Yellow); Glucose Urine UA 3+ mg/dL (Negative); Ketones Urine Trace mg/dL (Negative); Leukocyte Esterase Ur Negative LEU/UL (Negative); Nitrate Urine Negative (Negative); Protein Urine Negative (Negative); Specific Grav Ur 1.027 (1.001-1.035); Urobilinogen Urine 0.2 mg/dL (<2.0); pH Urine 5.5 (5.0-9.0)
[2024-02-19 22:06] LABS: Alanine Aminotransferase 19 U/L (6-35); Alkaline Phosphatase 94 U/L (38-126); Anion Gap 7 mmol/L (4-12); Aspartate Amino Transferase 18 U/L (14-36); Bilirubin,Total 0.3 mg/dL (0.2-1.3); Blood Urea Nitrogen 16 mg/dL (7-17); Calcium 9.2 mg/dL (8.4-10.2); Carbon Dioxide 24 mmol/L (22-30); Chloride 103 mmol/L (98-107); Estimated CRCL calculation 109 ml/min; Estimated Glomerular Filt Rate > 60; Glucose 206 mg/dL (65-110); Lipase 105 U/L (23-300); Potassium 3.6 mmol/L (3.4-5.0); Sodium 134 mmol/L (137-145)
[2024-02-19 22:14] LABS: SPREG INTERNAL CONTROL Positive; Serum Qual hCG Negative
[2024-02-19] MEDS: SODIUM CHLORIDE 0.9% IV 1,000 ML 999 ML IV CONT (22:33)
--- NOTE | 2024-02-19 22:41 | ED_ITS ---
HPI - Abdominal Pain General Chief Complaint: Abdominal Pain Stated Complaint: abd pain Time Seen by Provider: 02/19/24 21:05 History of Present Illness HPI narrative: Patient is a 48-year-old female who presents to the emergency department this evening complaining of left upper quadrant abdominal pain. Patient admits that she does have a history of chylomicronemia which causes buildup of triglycerides in her system. Patient usually requires IV insulin therapy and ICU admission. Patient states that this feels very similar to her previous episodes and flare up. She is also complaining of nausea and vomiting stating that she cannot keep anything down. She denies any chest pain or shortness of breath, denies any fevers or chills at home. No additional symptoms or concerns at this time. Related Data Home Medications Medication Instructions Recorded Confirmed levothyroxine 200 mcg tablet 200 mcg PO DAILY 07/21/23 02/12/24 ukunex-[id number]-wdunhgu 2 cap PO TIDWMEAL 07/22/23 02/12/24 36,000-114,000-180,000 unit capsule,delay rel (Creon) citalopram 40 mg tablet 40 mg PO DAILY 08/31/23 02/12/24 bupropion HCl 150 mg tablet,12 hr 150 mg PO HS 10/09/23 02/12/24 sustained-release Allergies Allergy/AdvReac Type Severity Reaction Status Date / Time adhesive tape Allergy Mild Rash Verified 02/19/24 20:50 [place] pepper [green pepper] Allergy Unknown Hives Verified 02/19/24 20:50 sucralose Allergy Migraine Verified 02/19/24 20:50 [From Splenda (sucralose)] Artificial Sweetners AdvReac Migraine Uncoded 01/31/24 13:32 Review of Systems Review of Systems: All systems are reviewed and are negative unless stated otherwise in the HPI. 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 Nausea Occult blood in stools PCOS (polycystic ovarian syndrome) Port-A-Cath in place Thyroid disorder Surgical History Surgical History History of appendectomy History of conization of cervix History of dilatation and curettage History of endometrial ablation History of exploratory laparotomy History of loop electrical excision procedure (LEEP) History of partial hysterectomy History of tonsillectomy History of tubal ligation History of wisdom tooth extraction Family History Family History Father Alcohol abuse Hypercholesteremia Hypertension Family history of alcoholism Family history of cardiovascular disease Diabetes mellitus Mother Hypercholesteremia Hypothyroid Cerebrovascular accident Family history of cardiovascular disease Diabetes mellitus Grandparent Skin cancer Colon cancer Heart disease Hypothyroid Cerebrovascular accident Sibling Autoimmune disorder Hypothyroid Kidney disorder Hypertension Diabetes mellitus Mother Family history of diabetes mellitus in first degree relative Family history of thyroid disease Father Family history of diabetes mellitus in first degree relative Patient's father is Other Family history of kidney disease Social History Social History Social History: She smokes a pack a day for the past 30 years. No alcohol or drug use. She has 2 dogs and a cat at home. Surrogate medical decision maker: José Miguel Jones, spouse. Code status: Full Smoking packs per day: 1 Smoking cigarettes per day: 20.0 Years smoked: 32 Smoking pack-years: 32.00 Smoking status: Current every day smoker Tobacco type: cigarettes Second hand tobacco smoke exposure: No Alcohol intake: never Drinks per week: 0 Substance use: never Substance use type: does not use Do You Feel Safe in your Home?: Yes Lack of Transportation: No Lack of Food: Never True Current Housing: I Have Housing Concerned About Future Housing: No Difficulty Paying Gas/Electric Bills: No Difficulty Paying for Meds: No Currently Unemployed: No Education: Associate Degree Difficulty w/ Childcare or Family Care: No Living arrangements: with family Spiritual care concerns: No Exam Narrative: General: Alert, awake, afebrile, in no acute distress. HEENT: PERRL, no rhinorrhea, no post nasal drip, oropharynx clear. Cardiovascular: Regular rate and rhythm, no murmurs, rubs or gallops, no peripheral edema. Respiratory: Clear to auscultation bilaterally, no tachypnea, no wheezing, no rhonchi, no rubs, no respiratory distress. Abdomen: Soft, tenderness palpation over the left upper quadrant, nondistended, no rebound, no guarding, no peritoneal signs. Musculoskeletal: No joint swelling or deformity, normal muscle tone. Skin: No rashes or petechia, no signs of infection. Neurological: Alert and oriented to person, place, and time. Follows all commands. No focal deficits, speech is clear and fluent. Course Vital Signs Vital signs: Vital Signs Temperature 97.9 F 02/19/24 20:57 Pulse Rate 108 H 02/19/24 20:57 Respiratory Rate 18 02/19/24 20:57 Blood Pressure 123/58 L 02/19/24 20:57 Pulse Oximetry 98 02/19/24 20:57 Oxygen Delivery Room Air 02/19/24 20:57 Temperature 97.9 F 02/19/24 20:57 Pulse Rate 99 02/19/24 23:20 Respiratory Rate 18 02/19/24 23:20 Blood Pressure 111/62 02/19/24 23:20 Pulse Oximetry 97 02/19/24 23:20 Oxygen Delivery Room Air 02/19/24 20:57 MDM - Abdominal Pain MDM Narrative Medical decision making narrative: The patient was evaluated by myself in the emergency department. History is obtained from patient who is an independent historian and physical exam was performed. External medical records were reviewed at this time. IV was established and pertinent tests were ordered. Patient was administered 1 L IV fluid bolus with normal saline, 2 mg IV morphine for pain and 4 mg of IV Zofran for nausea. Patient continues to have pain and at this time she was administered 0.5 mg of IV Dilaudid. Laboratory results obtained revealing an elevated triglycerides level of 1882 otherwise no acute process. Urinalysis revealed 3+ glucose and trace ketones. Imaging studies obtained included CT abdomen and pelvis with IV contrast which was independently interpreted by me revealing no acute process, which is pending final radiology interpretation. Differential diagnosis considerations include elevated triglyceride secondary to patient's history of chylomicronemia, acute pancreatitis, bowel obstruction hydration, electrolyte derangements. Comorbidities impacting this visit include history of chylomicronemia. I have evaluated and discussed social determinants of health with the patient that could potentially impact subsequent diagnosis and treatment plans. On repeat assessment of the patient, reevaluation revealed that the patient is doing well and is in no acute distress. Patient symptoms have improved since she arrived to our emergency department. Repeat vital signs were all reviewed and noted to be stable. Differential diagnosis and treatment plan were discussed with the patient at bedside. Patient agrees with discussion and after shared medical decision making agrees with admission. All questions were answered to the patient's satisfaction. Patient was started on IV insulin at a rate of 0.1 units/kg per hour along with D5 half-normal saline at a rate of 150 cc/hour with 20 KCL due to a glucose of 206 and a potassium of 3.6. Case was discussed with the on-call hospitalist Dr. Michaels at 0045 and she accepted ICU admission. Case was discussed with the i ntensivist Dr. Mcgrath at 0055 and he accepted admission. Per his request, nephrology consultation was placed with Dr. Kaminski for plasmapheresis. Critical care time of 37 minutes, exclusive of separately performed procedures, necessary for treating or preventing eminent or life-threatening deterioration of patient's condition of hypertriglyceridemia required IV insulin therapy, focused on patient care provided personally by me and time spent during initial evaluation, physical examination, ordering and performing treatments and interventions, ordering and reviewing laboratory studies, ordering and reviewing radiographic studies, re-evaluation of the patient's condition, evaluation of the patient's response to treatment, and discussion of patient case with multiple consultants. Lab Data 02/19/24 21:51 02/19/24 21:51 Labs: Lab Results 02/19/24 Range/Units 21:51 WBC 9.3 (4.5-10.0) K/mm3 RBC 4.20 (4.2-5.4) M/mm3 Hgb 12.5 (12.0-15.0) g/dL Hct 36.6 L (37.0-47.0) % MCV 87.1 (80-100) fl MCH 29.8 (26-34) pg MCHC 34.2 (32-36) g/dl RDW 13.9 (11.5-14.5) % Plt Count 276 (150-375) k/mm3 MPV 8.9 (7.4-10.4) fl Immature Gran % (Auto) 1.4 H (0-0.5) % Neut % (Auto) 64.9 (45.5-73.1) % Lymph % (Auto) 27.9 (18.3-44.2) % [place] % (Auto) 5.0 (2.6-8.5) % Eos % (Auto) 0.5 (0-4.4) % Baso % (Auto) 0.3 (0.2-1.2) % Lymph # (Auto) 2.60 (0.9-3.2) K/mm3 [place] # (Auto) 0.5 (0.1-0.6) K/mm3 Eos # (Auto) 0.1 (0-0.3) K/mm3 Baso # (Auto) 0.0 (0.0-0.1) K/mm3 Abs Immat Gran (auto) 0.13 H (0.00-0.031) K/mm3 Absolute Neuts (auto) 6.0 (1.3-6.7) K/mm3 Absolute Nucleated RBC 0.000 (0.0-0.012) K/mm3 Nucleated RBC % 0.0 (0.0-0.2) % Sodium 134 L (137-145) mmol/L Potassium 3.6 (3.4-5.0) mmol/L Chloride 103 (98-107) mmol/L Carbon Dioxide 24 (22-30) mmol/L Anion Gap 7 (4-12) mmol/L BUN 16 (7-17) mg/dL Creatinine 0.60 L (0.7-1.0) mg/dL Estim Creat Clear Calc 109 ml/min Estimated GFR > 60 (59 - ) Glucose 206 H (65-110) mg/dL Calcium 9.2 (8.4-10.2) mg/dL Total Bilirubin 0.3 (0.2-1.3) mg/dL AST 18 (14-36) U/L ALT 19 (6-35) U/L Alkaline Phosphatase 94 (38-126) U/L Total Protein 7.0 (6.3-8.2) g/dL Albumin 4.0 (3.5-5.1) g/dL Triglycerides 1882 H (<150) mg/dL Lipase 105 (23-300) U/L Serum HCG, Qual Negative Urine Color Yellow (Yellow) Urine Appearance Clear (Clear) Urine pH 5.5 (5.0-9.0) Ur Specific [place] 1.027 (1.001-1.035) Urine Protein Negative (Negative) mg/dL Urine Glucose (UA) 3+ H (Negative) mg/dL Urine Ketones Trace H (Negative) mg/dL Ur Blood (Man) Negative (Negative) Urine Nitrate Negative (Negative) Urine Bilirubin Negative (Negative) Urine Urobilinogen 0.2 (<2.0) mg/dL Leukocyte Esterase Rfl Negative (Negative) STEPHEN/UL Imaging Data Radiologist's impression: ITS Impressions Abdomen/Pelvis CT 02/19/24 23:28 IMPRESSION: 1. No acute intra-abdominal/pelvic process. Critical Care Time Critical Care Time Total Critical Care Time: 37 (Please refer to [facility] for attestation) Discharge Plan Discharge Clinical Impression: Chylomicronemia syndrome, Abdominal pain, Nausea & vomiting Patient Disposition: Still a Patient Condition: Improved
[2024-02-19] MEDS: ONDANSETRON INJ 4 MG/2 ML VIAL IV PUSH (22:49)
[2024-02-19] MEDS: MORPHINE SULFATE (*CRX) 2 MG/ML INJ IV PUSH (22:49)
[2024-02-19 23:20] VITALS: BP 111/62; PULSE 99; RESP 18; O2SAT 97
[2024-02-20] VITALS (18 sets, daily range): BP systolic 98–139; BP diastolic 55–96; PULSE 64–101; RESP 12–18; TEMP 36.5–37.1; O2SAT 69–99; BMI 30.4
[2024-02-20] MEDS: HYDROmorphone HCL INJ (*CRX) 1 MG/ML SYR 0.5 MG IV PUSH ×8 (00:31→21:32)
[2024-02-20 00:44] LABS: Triglycerides 1882 mg/dL (<150)
--- NOTE | 2024-02-20 00:48 | PM.IMHP ---
H&P: HPI History of Present Illness Date/Time: 02/20/24 00:48 Chief Complaint: ABDOMINAL PAIN Narrative: THIS IS A 48-YEAR-OLD FEMALE WITH PAST MEDICAL HISTORY SIGNIFICANT FOR CHYLOMICRONEMIA SYNDROME, CHRONIC PANCREATITIS, GERD. PATIENT PRESENTS TO THE EMERGENCY ROOM DUE TO ABDOMINAL PAIN GENERALIZED BODY ACHES. PRELIMINARY WORKUP SIGNIFICANT FOR TRIGLYCERIDE ABOVE 1000. PATIENT HAS BEEN ADMITTED TO INTENSIVE CARE UNIT FOR FURTHER EVALUATION MANAGEMENT AND TREATMENT. EXAMINATION: CT abdomen pelvis w con DATE: 02/19/2024 23:27 INDICATION: Left upper quadrant abdominal pain TECHNIQUE: Computed tomography (CT) of the abdomen and pelvis was performed with 100 mL Omnipaque-350 intravenous contrast. Automated exposure control and iterative reconstruction technique were employed. The dose-length product was 1096.91 mGy-cm. COMPARISON: None FINDINGS: Dependent atelectasis in the bilateral lower lobes. Heart size is normal. Atherosclerotic coronary artery calcifications and/or stenting. Distal tips of a pair of central venous catheter is seen at the high right atrium. No pericardial effusion. Small focus of hepatic steatosis at the ligamentum teres. Gallbladder, pancreas, right kidney and bilateral adrenal glands are normal. The location of the left kidney with the hilum oriented anterolaterally. Spleen is normal with no interval change in a chronic small crescentic fluid collection along its caudal margin which can be seen dating back to 04/03/2022. Bladder is normal. Bilateral adnexa are unremarkable. The uterus is not identified and has likely been surgically resected. There is mild scattered colonic diverticulosis without adjacent comparison to suggest diverticulitis. No bowel obstruction. No free intraperitoneal gas or fluid. No pathologically enlarged abdominal or pelvic lymphadenopathy. Mild thoracolumbar spondylosis. IMPRESSION: 1. No acute intra-abdominal/pelvic process. 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 Nausea Occult blood in stools PCOS (polycystic ovarian syndrome) Port-A-Cath in place Thyroid disorder Surgical History Surgical History History of appendectomy History of conization of cervix History of dilatation and curettage History of endometrial ablation History of exploratory laparotomy History of loop electrical excision procedure (LEEP) History of partial hysterectomy History of tonsillectomy History of tubal ligation History of wisdom tooth extraction Family History Family History Father Alcohol abuse Hypercholesteremia Hypertension Family history of alcoholism Family history of cardiovascular disease Diabetes mellitus Mother Hypercholesteremia Hypothyroid Cerebrovascular accident Family history of cardiovascular disease Diabetes mellitus Grandparent Skin cancer Colon cancer Heart disease Hypothyroid Cerebrovascular accident Sibling Autoimmune disorder Hypothyroid Kidney disorder Hypertension Diabetes mellitus Mother Family history of diabetes mellitus in first degree relative Family history of thyroid disease Father Family history of diabetes mellitus in first degree relative Patient's father is Other Family history of kidney disease Social History Social History Social History: She smokes a pack a day for the past 30 years. No alcohol or drug use. She has 2 dogs and a cat at home. Surrogate medical decision maker: José Miguel Jones, spouse. Code status: Full Smoking packs per day: 1 Smoking cigarettes per day: 20.0 Years smoked: 32 Smoking pack-years: 32.00 Smoking status: Current every day smoker Second hand tobacco smoke exposure: No Alcohol intake: never Drinks per week: 0 Substance use: never Substance use type: does not use Do You Feel Safe in your Home?: Yes Lack of Transportation: No Lack of Food: Never True Current Housing: I Have Housing Concerned About Future Housing: No Difficulty Paying Gas/Electric Bills: No Difficulty Paying for Meds: No Currently Unemployed: No Education: Associate Degree Difficulty w/ Childcare or Family Care: No Living arrangements: with family Spiritual care concerns: No Meds Home Medications and Allergies Home Medications Medication Instructions Recorded Confirmed Type fenofibrate nanocrystallized 145 145 mg PO DAILY #90 tabs 07/24/22 02/12/24 Rx mg tablet ondansetron 4 mg disintegrating 4 mg PO Q8H PRN nausea and 12/11/22 02/12/24 Rx tablet vomiting #30 tabs metformin 500 mg tablet 1,000 mg PO BID #180 tabs 12/19/22 02/12/24 Rx levothyroxine 200 mcg tablet 200 mcg PO DAILY 07/21/23 02/12/24 History [id number]-[id number] 2 cap PO TIDWMEAL 07/22/23 02/12/24 History 36,000-114,000-180,000 unit capsule,delay rel (Creon) aspirin 81 mg tablet,delayed 81 mg PO QAM #30 tabs 07/25/23 02/12/24 Rx release pantoprazole 40 mg tablet,delayed 40 mg PO BID #30 tabs 08/22/23 02/12/24 Rx release (Protonix) citalopram 40 mg tablet 40 mg PO DAILY 08/31/23 02/12/24 History ticagrelor 90 mg tablet (Brilinta) 90 mg PO BID #180 tabs 10/03/23 02/12/24 Rx bupropion HCl 150 mg tablet,12 hr 150 mg PO HS 10/09/23 02/12/24 History sustained-release pen needle, diabetic 32 gauge x #1,200 ea 11/14/23 02/12/24 Rx 5/32 (BD Ultra-Fine Diandra Pen Needle) insulin syringe-needle U-100 0.3 #100 ea 11/29/23 02/12/24 Rx mL 31 gauge x 5/16 (BD Insulin Syringe Ultra-Fine) trazodone 100 mg tablet 200 mg PO HS #180 tabs 12/26/23 02/12/24 Rx lorazepam 1 mg tablet 1 mg PO QHS PRN sleep #90 tabs 12/31/23 02/12/24 Rx atorvastatin 80 mg tablet 80 mg PO HS #90 tabs 02/12/24 Rx Allergies Allergy/AdvReac Type Severity Reaction Status Date / Time adhesive tape Allergy Mild Rash Verified 02/19/24 20:50 [place] pepper [green pepper] Allergy Unknown Hives Verified 02/19/24 20:50 sucralose Allergy Migraine Verified 02/19/24 20:50 [From Splenda (sucralose)] Artificial Sweetners AdvReac Migraine Uncoded 01/31/24 13:32 Vital Signs Vital Signs - 24 hr 02/19/24 20:57 02/19/24 23:20 Temperature 97.9 F Pulse Rate 108 H 99 Respiratory Rate 18 18 Blood Pressure 123/58 L 111/62 Pulse Oximetry 98 97 Oxygen Delivery Room Air Exam Narrative: LYING IN STRETCHER Const: General: comfortable, no acute distress, well developed, alert, awake and average body habitus Nutritional Appearance: average body habitus Orientation/consciousness: patient oriented x3 HENMT: Head: normal to inspection, normocephalic and atraumatic Ears: hearing grossly normal bilaterally Face/Nose/Sinus: normal facial exam Face and sinus: normal facial exam Eyes: General: appearance normal, both eyes and all related structures Pupils: Equal, round and reactive pupils present EOM: EOMs intact bilaterally Neck: Neck: full ROM, no lymphadenopathy and no JVD Thyroid: thyroid normal Lymphatic: no lymphadenopathy noted Resp: Effort & Inspection: normal respiratory effort and able to speak in complete sentences Auscultation: clear to auscultation bilaterally Cardio: Jugular venous distension: no JVD Rate: regular rate Rhythm: regular rhythm Heart sounds: S1 normal heart sound present and S2 normal heart sound present GI: Inspection: obesity GI Palp: Yes abdominal tenderness, Yes Soft to palpation, Yes Tenderness to palpation present (GI), No Guarding due to palpation present (GI), Yes No hepatosplenomegaly present and No Rebound tenderness present : General: Yes deferred Skin: Rashes: no rashes Wounds: no wounds Neuro: General: patient oriented x3 and CN's II-XI intact bilaterally Cranial nerves: Yes CN's II-XII intact bilaterally and Yes Equal, round and reactive pupils present Cognition (Neuro): normal cognition Speech: normal speech Gait exam (Neuro): Normal gait present Motor exam (neuro): 5/5 motor strength present throughout Extrem: General: normal to inspection, full ROM, no joint enlargement and no pedal edema H&P: Results Labs Labs: Short CBC 02/19/24 Range/Units 21:51 WBC 9.3 (4.5-10.0) K/mm3 Hgb 12.5 (12.0-15.0) g/dL Hct 36.6 L (37.0-47.0) % Plt Count 276 (150-375) k/mm3 BMP 02/19/24 21:51 Sodium 134 L Potassium 3.6 Chloride 103 Carbon Dioxide 24 BUN 16 Creatinine 0.60 L Glucose 206 H Calcium 9.2 Liver Function 02/19/24 Range/Units 21:51 Total Bilirubin 0.3 (0.2-1.3) mg/dL AST 18 (14-36) U/L ALT 19 (6-35) U/L Alkaline Phosphatase 94 (38-126) U/L Albumin 4.0 (3.5-5.1) g/dL Urine 02/19/24 Range/Units 21:51 Urine Color Yellow (Yellow) Urine Appearance Clear (Clear) Urine pH 5.5 (5.0-9.0) Ur Specific [place] 1.027 (1.001-1.035) Urine Protein Negative (Negative) mg/dL Urine Glucose (UA) 3+ H (Negative) mg/dL Assessment and Plan Assessment and plan (1) Hypertriglyceridemia: Code(s): E78.1 - Pure hyperglyceridemia Status: Chronic Assessment and Plan: ADMIT TO INTENSIVE CARE UNIT STARTED ON INSULIN DRIP (2) Abdominal pain: Code(s): R10.9 - Unspecified abdominal pain Status: Acute Assessment and Plan: SUPPORTIVE CARE (3) Chronic pancreatitis: Code(s): K86.1 - Other chronic pancreatitis Status: Acute Assessment and Plan: CT ABDOMEN AND PELVIS REVIEWED (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 Status: Acute Assessment and Plan: FOLLOW-UP IN OUTPATIENT SETTING (5) Tobacco use: Code(s): Z72.0 - Tobacco use Status: Chronic Assessment and Plan: NICOTINE PATCH NEEDED (6) GERD (gastroesophageal reflux disease): Qualifiers: Esophagitis presence: esophagitis presence not specified Qualified Code(s): K21.9 - Gastro-esophageal reflux disease without esophagitis Code(s): K21.9 - Gastro-esophageal reflux disease without esophagitis Status: Acute Assessment and Plan: PPI Hospitalist MIPS Advance Care Plan I have confirmed that the patient's Advanced Care Plan is present, code status is documented, or surrogate decision maker is listed in patient medical record.: Yes Medication Reconciliation I have utilized all available resources to obtain, update and review the patients current medications (includes all prescriptions, OTC, herbals, cannabis, and nutritional supplements).: Yes
--- NOTE | 2024-02-20 01:37 | PC.NURSE ---
Report received from CLAU Sanchez.
[2024-02-20] MEDS: KCL 20 MEQ/D5/0.45% SOD CHL 1,000 ML 150 ML IV CONT ×2 (01:51→08:47)
[2024-02-20] MEDS: INSULIN HUMAN REGULAR (*BKC) 100 UNITS in SODIUM CHLORIDE 0.9% IV 99 ML 8.5 UNITS IV CONT (01:51)
[2024-02-20 02:12] LABS: Glucose Point of Care 119 mg/dl (65-105)
[2024-02-20 02:27] LABS: Glucose Point of Care 128 mg/dl (65-105)
--- NOTE | 2024-02-20 03:08 | ADMGEN ---
This patient, Casandra Jones, was admitted to Intensive Care Unit-7 on 02/20/24 at 0212. Patient/family oriented to hospital policies and general routines including ID bracelet, bed and alarms, visiting hours, pain management, procedures, bathroom and other care routines, personal items, smoking policy, room service/diet, and visiting hours. Information on how to activate the Rapid Response Team has been discussed. Patient/Family are encouraged to report perceived risks to care and to ask questions if they do not understand what they are told or what they should do.
[2024-02-20 03:24] LABS: Glucose Point of Care 100 mg/dl (65-105)
[2024-02-20 04:21] LABS: Glucose Point of Care 126 mg/dl (65-105)
[2024-02-20 04:33] LABS: Basophils Percent Auto 0.3 % (0.2-1.2); Eosinophils Absolute Auto 0.1 K/mm3 (0-0.3); Eosinophils Percent Auto 0.9 % (0-4.4); Hematocrit 33.3 % (37.0-47.0); Hemoglobin 10.9 g/dL (12.0-15.0); Immature Granulocyte Absolute 0.11 K/mm3 (0.00-0.031); Immature Granulocyte Percent A 1.2 % (0-0.5); Lymphocytes Absolute Auto 3.01 K/mm3 (0.9-3.2); Mean Corpuscular HGB Conc 32.7 g/dl (32-36); Mean Corpuscular Hemoglobin 29.2 pg (26-34); Mean Corpuscular Volume 89.3 fl (80-100); Monocytes Absolute Auto 0.6 K/mm3 (0.1-0.6); Neutrophils Absolute Auto 5.3 K/mm3 (1.3-6.7); Neutrophils Percent Auto 58.6 % (45.5-73.1); Platelet Count Result 237 k/mm3 (150-375); Red Blood Count 3.73 M/mm3 (4.2-5.4); Red Cell Distribution Width 14.1 % (11.5-14.5); White Blood Count 9.1 K/mm3 (4.5-10.0)
[2024-02-20 04:45] LABS: Alanine Aminotransferase 17 U/L (6-35); Albumin Level 3.4 g/dL (3.5-5.1); Alkaline Phosphatase 76 U/L (38-126); Anion Gap 5 mmol/L (4-12); Aspartate Amino Transferase 18 U/L (14-36); Bilirubin,Total 0.3 mg/dL (0.2-1.3); Blood Urea Nitrogen 14 mg/dL (7-17); Calcium 8.2 mg/dL (8.4-10.2); Carbon Dioxide 24 mmol/L (22-30); Chloride 106 mmol/L (98-107); Estimated CRCL calculation 122 ml/min; Estimated Glomerular Filt Rate > 60; Glucose 113 mg/dL (65-110); Lipase 61 U/L (23-300); Magnesium 1.6 mg/dL (1.6-2.3); Phosphorus 4.1 mg/dL (2.5-4.5); Sodium 135 mmol/L (137-145)
[2024-02-20 05:13] LABS: MRSA (PCR) NOT DETECTED (NOT DETECTE)
[2024-02-20 05:23] LABS: Triglycerides 1313 mg/dL (<150)
[2024-02-20 05:46] LABS: Glucose Point of Care 143 mg/dl (65-105)
[2024-02-20 06:25] LABS: Glucose Point of Care 135 mg/dl (65-105)
[2024-02-20] MEDS: ASPIRIN 81 MG ENTERIC TABLET PO (07:54)
[2024-02-20] MEDS: PANTOPRAZOLE 40 MG TABLET PO ×2 (07:54→21:23)
[2024-02-20] MEDS: FENOFIBRATE NANOCRYSTALLIZED 145 MG TABLET PO (07:54)
[2024-02-20] MEDS: ENOXAPARIN 40 MG/0.4 ML SYRINGE SUB-Q (07:54)
[2024-02-20] MEDS: TICAGRELOR 90 MG TABLET PO ×2 (07:54→21:23)
[2024-02-20] MEDS: LEVOTHYROXINE SODIUM 100 MCG TABLET 200 MCG PO (07:54)
[2024-02-20] MEDS: metFORMIN HCL 500 MG TABLET 1000 MG PO (07:54)
[2024-02-20 08:02] LABS: Glucose Point of Care 156 mg/dl (65-105)
[2024-02-20 09:10] LABS: Glucose Point of Care 194 mg/dl (65-105)
--- NOTE | 2024-02-20 10:23 | P.CONIN_ITS ---
Assessment and Plan Assessment and plan (1) Abdominal pain: Code(s): R10.9 - Unspecified abdominal pain Status: Acute Assessment and Plan: Secondary to chronic pancreatitis and hypertriglyceridemia. Lipase level is normal at this time Patient is being treated with insulin infusion and IV fluids for hypertrigl yceridemia. Consult nephrology for plasmapheresis. Monitor triglyceride levels. Clear liquid diet and advance as tolerated Pain control ordered Creon with meals (2) Chronic pancreatitis: Code(s): K86.1 - Other chronic pancreatitis Status: Acute Assessment and Plan: See above (3) Hypertriglyceridemia: Code(s): E78.1 - Pure hyperglyceridemia Status: Chronic Assessment and Plan: Continue statin and fenofibrate. Patient also on insulin infusion at this time. Plan for plasmapheresis (4) Insulin dependent diabetes mellitus: Status: Chronic Assessment and Plan: Currently on insulin drip. We will transition back to insulin pump once patient started eating and triglyceride levels are down (5) GERD (gastroesophageal reflux disease): Qualifiers: Esophagitis presence: esophagitis presence not specified Qualified Code(s): K21.9 - Gastro-esophageal reflux disease without esophagitis Code(s): K21.9 - Gastro-esophageal reflux disease without esophagitis Status: Acute Assessment and Plan: Continue PPI (6) CAD (coronary artery disease): Code(s): I25.10 - Atherosclerotic heart disease of [place] coronary artery without angina pectoris Status: Chronic Assessment and Plan: Continue aspirin Brilinta statin Patient is not on Justin/ARB or beta-lelo as an outpatient Plan DVT prophylaxis -Lovenox Stress ulcer prophylaxis -PPI Nutrition -. Patient is currently NPO. Will start clear liquid if patient tolerates Code Status - Full Code Total Critical Care Time - 30 minutes Due to a high probability of clinically significant, life threatening deterioration, the patient required my highest level of preparedness to intervene emergently and I personally spent this critical care time directly and personally managing the patient. This critical care time included obtaining a history; examining the patient; pulse oximetry; ordering and review of studies; arranging urgent treatment with development of a management plan; evaluation of patient's response to treatment; frequent reassessment; and discussions with other providers. It was exclusive of separately billable procedures and treating other patients and teaching time. Please see Assessment and Plan section and the rest of the note for further information on patient assessment and treatment Writer Editor Consult Note Consult date: 02/20/24 Reason for consult: Abdominal pain. Hypertriglyceridemia HPI: Casandra Jones is a 48 year old female with significant past medical history of chronic pancreatitis, Chylomicronemia syndrome, GERD, hypertriglyceridemia, hypothyroidism, insulin-dependent diabetes now on insulin pump, lipoprotein deficiency, polycystic ovarian syndrome, Port-A-Cath x2, coronary artery disease status post stent x3 in June 2023 at [facility], history of multiple plasmapheresis as outpatient and inpatient presented to the ED on 02/18 with complains of worsening off her chronic abdominal pain. Patient has chronic abdominal pain which started getting worse 2 days ago. Pain was achy, on the left side of the abdomen, radiated to back, continuous. She had nausea vomiting and diarrhea. No hematochezia melena. No chest pain shortness a breath cough fever dysuria hematuria. She states that she felt that this is usual worsening of her pain that she gets. She states she has not been admitted or treated or received plasmapheresis since her last admission here at [facility] in December. All other systems were reviewed and were negative Workup in the ER showed elevated triglycerides level. No acute intra-abdominal or pelvic process on the CT scan. WBC 9 and normal lipase level. Patient is admitted to ICU and started insulin infusion dextrose IV fluids. This morning she states she feels better as pain is down to 7/10 but not completely resolved. Patient still has nausea but no vomiting this morning. No other new complaints. 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 Nausea Occult blood in stools PCOS (polycystic ovarian syndrome) Port-A-Cath in place Thyroid disorder Surgical History Surgical History History of appendectomy History of conization of cervix History of dilatation and curettage History of endometrial ablation History of exploratory laparotomy History of loop electrical excision procedure (LEEP) History of partial hysterectomy History of tonsillectomy History of tubal ligation History of wisdom tooth extraction Family History Family History Father Alcohol abuse Hypercholesteremia Hypertension Family history of alcoholism Family history of cardiovascular disease Diabetes mellitus Mother Hypercholesteremia Hypothyroid Cerebrovascular accident Family history of cardiovascular disease Diabetes mellitus Grandparent Skin cancer Colon cancer Heart disease Hypothyroid Cerebrovascular accident Sibling Autoimmune disorder Hypothyroid Kidney disorder Hypertension Diabetes mellitus Mother Family history of diabetes mellitus in first degree relative Family history of thyroid disease Father Family history of diabetes mellitus in first degree relative Patient's father is Other Family history of kidney disease Social History Social History Social History: She smokes a pack a day for the past 30 years. No alcohol or drug use. She has 2 dogs and a cat at home. Surrogate medical decision maker: José Miguel Jones, spouse. Code status: Full Smoking packs per day: 1 Smoking cigarettes per day: 20.0 Years smoked: 32 Smoking pack-years: 32.00 Smoking status: Current every day smoker Second hand tobacco smoke exposure: No Alcohol intake: never Drinks per week: 0 Substance use: never Substance use type: does not use Do You Feel Safe in your Home?: Yes Lack of Transportation: No Lack of Food: Never True Current Housing: I Have Housing Concerned About Future Housing: No Difficulty Paying Gas/Electric Bills: No Difficulty Paying for Meds: No Currently Unemployed: No Education: Associate Degree Difficulty w/ Childcare or Family Care: No Living arrangements: with family Spiritual care concerns: No Meds Home Medications and Allergies Home Medications Medication Instructions Recorded Confirmed Type fenofibrate nanocrystallized 145 145 mg PO DAILY #90 tabs 07/24/22 02/20/24 Rx mg tablet ondansetron 4 mg disintegrating 4 mg PO Q8H PRN nausea and 12/11/22 02/20/24 Rx tablet vomiting #30 tabs metformin 500 mg tablet 1,000 mg PO BID #180 tabs 12/19/22 02/20/24 Rx levothyroxine 200 mcg tablet 200 mcg PO DAILY 07/21/23 02/20/24 History [id number]-vsanpcek-[id number] 2 cap PO TIDWMEAL 07/22/23 02/20/24 History 36,000-114,000-180,000 unit capsule,delay rel (Creon) aspirin 81 mg tablet,delayed 81 mg PO QAM #30 tabs 07/25/23 02/20/24 Rx release pantoprazole 40 mg tablet,delayed 40 mg PO BID #30 tabs 08/22/23 02/20/24 Rx release (Protonix) citalopram 40 mg tablet 40 mg PO DAILY 08/31/23 02/20/24 History ticagrelor 90 mg tablet (Brilinta) 90 mg PO BID #180 tabs 10/03/23 02/20/24 Rx bupropion HCl 150 mg tablet,12 hr 150 mg PO HS 10/09/23 02/20/24 History sustained-release pen needle, diabetic 32 gauge x #1,200 ea 11/14/23 02/20/24 Rx 5/32 (BD Ultra-Fine Diandra Pen Needle) insulin syringe-needle U-100 0.3 #100 ea 11/29/23 02/20/24 Rx mL 31 gauge x 5/16 (BD Insulin Syringe Ultra-Fine) trazodone 100 mg tablet 200 mg PO HS #180 tabs 12/26/23 02/20/24 Rx lorazepam 1 mg tablet 1 mg PO QHS PRN sleep #90 tabs 12/31/23 02/20/24 Rx atorvastatin 80 mg tablet 80 mg PO HS #90 tabs 02/12/24 02/20/24 Rx Allergies Allergy/AdvReac Type Severity Reaction Status Date / Time adhesive tape Allergy Mild Rash Verified 02/19/24 20:50 [place] pepper [green pepper] Allergy Unknown Hives Verified 02/19/24 20:50 sucralose Allergy Migraine Verified 02/19/24 20:50 [From Splenda (sucralose)] Artificial Sweetners AdvReac Migraine Uncoded 01/31/24 13:32 Vital Signs Vital Signs - 24 hr 02/19/24 20:57 02/19/24 23:20 02/20/24 01:15 Temperature 36.6 C Pulse Rate 108 H 99 101 H Respiratory Rate 18 18 18 Blood Pressure 123/58 L 111/62 106/68 Pulse Oximetry 98 97 96 Oxygen Delivery Room Air 02/20/24 02:30 02/20/24 02:30 02/20/24 04:00 Temperature 37.0 C Pulse Rate 85 85 84 Respiratory Rate 14 Blood Pressure 101/55 L Pulse Oximetry 96 Oxygen Delivery 02/20/24 04:00 02/20/24 04:30 02/20/24 06:00 Temperature 36.7 C Pulse Rate 84 77 Respiratory Rate 16 Blood Pressure 101/57 L Pulse Oximetry 92 93 Oxygen Delivery Room Air 02/20/24 06:00 Temperature Pulse Rate 77 Respiratory Rate 15 Blood Pressure 98/68 L Pulse Oximetry 94 Oxygen Delivery Exam Narrative: General: Pt is alert awake and in NAD Lungs/Chest: Trachea central Clear BS B/L, No crackles or wheezing. Twin Port-A-Cath in anterior chest Cardiac: RRR. Normal S1 S2. No murmurs Circulation: Pedal pulses are intact and symmetrical. Abdomen: Normal bowel sounds.. Soft. Tenderness in left upper quadrant. No guarding or rigidity Extremities: No clubbing, cyanosis or edema. Warm : Pettit in place Neurologic: Follows commands. Moves all 4 extremities PERRL Skin: No Rash Results Labs 02/20/24 04:21 02/20/24 04:21 Labs: Impressions Abdomen/Pelvis CT 02/19/24 23:28 IMPRESSION: 1. No acute intra-abdominal/pelvic process. Short CBC 02/19/24 02/20/24 Range/Units 21:51 04:21 WBC 9.3 9.1 (4.5-10.0) K/mm3 Hgb 12.5 10.9 L (12.0-15.0) g/dL Hct 36.6 L 33.3 L (37.0-47.0) % Plt Count 276 237 (150-375) k/mm3 [facility] 02/19/24 02/20/24 21:51 04:21 Sodium 134 L 135 L Potassium 3.6 4.0 Chloride 103 106 Carbon Dioxide 24 24 BUN 16 14 Creatinine 0.60 L 0.50 L Glucose 206 H 113 H Calcium 9.2 8.2 L Liver Function 02/19/24 02/20/24 Range/Units 21:51 04:21 Total Bilirubin 0.3 0.3 (0.2-1.3) mg/dL AST 18 18 (14-36) U/L ALT 19 17 (6-35) U/L Alkaline Phosphatase 94 76 (38-126) U/L Albumin 4.0 3.4 L (3.5-5.1) g/dL Urine 02/19/24 Range/Units 21:51 Urine Color Yellow (Yellow) Urine Appearance Clear (Clear) Urine pH 5.5 (5.0-9.0) Ur Specific [place] 1.027 (1.001-1.035) Urine Protein Negative (Negative) mg/dL Urine Glucose (UA) 3+ H (Negative) mg/dL Hospitalist MIPS Advance Care Plan I have confirmed that the patient's Advanced Care Plan is present, code status is documented, or surrogate decision maker is listed in patient medical record.: Yes Medication Reconciliation I have utilized all available resources to obtain, update and review the patients current medications (includes all prescriptions, OTC, herbals, cannabis, and nutritional supplements).: Yes
[2024-02-20 10:24] LABS: Glucose Point of Care 156 mg/dl (65-105)
[2024-02-20 11:28] LABS: Glucose Point of Care 161 mg/dl (65-105)
[2024-02-20 11:47] LABS: Anion Gap 6 mmol/L (4-12); Blood Urea Nitrogen 9 mg/dL (7-17); Calcium 8.2 mg/dL (8.4-10.2); Carbon Dioxide 24 mmol/L (22-30); Chloride 105 mmol/L (98-107); Estimated CRCL calculation 122 ml/min; Estimated Glomerular Filt Rate > 60; Glucose 140 mg/dL (65-110); Potassium 4.2 mmol/L (3.4-5.0); Sodium 135 mmol/L (137-145)
[2024-02-20] MEDS: ONDANSETRON INJ 4 MG/2 ML VIAL IV PUSH ×2 (12:00→21:32)
[2024-02-20 12:45] LABS: Glucose Point of Care 160 mg/dl (65-105)
--- NOTE | 2024-02-20 13:30 | PC.NURSE ---
Patient instructed by Dr. Mcgrath to have spouse bring in insulin pump after completion of plasmapheresis in preparation to downgrade out of ICU this evening.
[2024-02-20 13:32] LABS: Glucose Point of Care 160 mg/dl (65-105)
--- NOTE | 2024-02-20 13:35 | PM.IMPN ---
Progress Note: A&P Assessment and Plan (1) Abdominal pain: Code(s): R10.9 - Unspecified abdominal pain Status: Acute Assessment and Plan: Secondary to chronic pancreatitis and hypertriglyceridemia. Lipase level is normal at this time Patient is being treated with insulin infusion and IV fluids for hypertriglyceridemia. Consult nephrology for plasmapheresis. Monitor triglyceride levels. Clear liquid diet and advance as tolerated Pain control ordered Creon with meals (2) Chronic pancreatitis: Code(s): K86.1 - Other chronic pancreatitis Status: Acute Assessment and Plan: See above (3) Hypertriglyceridemia: Code(s): E78.1 - Pure hyperglyceridemia Status: Chronic Assessment and Plan: Continue statin and fenofibrate. Patient also on insulin infusion at this time. Plan for plasmapheresis (4) Insulin dependent diabetes mellitus: Status: Chronic Assessment and Plan: Currently on insulin drip. We will transition back to insulin pump once patient started eating and triglyceride levels are down (5) GERD (gastroesophageal reflux disease): Qualifiers: Esophagitis presence: esophagitis presence not specified Qualified Code(s): K21.9 - Gastro-esophageal reflux disease without esophagitis Code(s): K21.9 - Gastro-esophageal reflux disease without esophagitis Status: Acute Assessment and Plan: Continue PPI (6) CAD (coronary artery disease): Code(s): I25.10 - Atherosclerotic heart disease of [place] coronary artery without angina pectoris Status: Chronic Assessment and Plan: Continue aspirin Brilinta statin Patient is not on Justin/ARB or beta-lelo as an outpatient Subjective Date/time seen: 02/20/24 13:35 Interval history: Patient feels nauseated. Plan plasmapheresis late afternoon Review of Systems Review of Systems: ABDOMINAL PAIN, BODY ACHES All systems reviewed & are unremarkable except as noted in HPI and below (HPI) Exam Narrative: General: Pt is alert awake and in NAD Lungs/Chest: Trachea central Clear BS B/L, No crackles or wheezing. Twin Port-A-Cath in anterior chest Cardiac: RRR. Normal S1 S2. No murmurs Circulation: Pedal pulses are intact and symmetrical. Abdomen: Normal bowel sounds.. Soft. Tenderness in left upper quadrant. No guarding or rigidity Extremities: No clubbing, cyanosis or edema. Warm : Pettit in place Neurologic: Follows commands. Moves all 4 extremities PERRL Skin: No Rash Const: General: comfortable, no acute distress, well developed, alert, awake and average body habitus Nutritional Appearance: average body habitus Orientation/consciousness: patient oriented x3 HENMT: Head: normal to inspection, normocephalic and atraumatic Ears: hearing grossly normal bilaterally Face/Nose/Sinus: normal facial exam Face and sinus: normal facial exam Eyes: General: appearance normal, both eyes and all related structures Pupils: Equal, round and reactive pupils present EOM: EOMs intact bilaterally Neck: Neck: full ROM, no lymphadenopathy and no JVD Thyroid: thyroid normal Lymphatic: no lymphadenopathy noted Resp: Effort & Inspection: normal respiratory effort and able to speak in complete sentences Auscultation: clear to auscultation bilaterally Cardio: Jugular venous distension: no JVD Rate: regular rate Rhythm: regular rhythm Heart sounds: S1 normal heart sound present and S2 normal heart sound present GI: Inspection: obesity : General: Yes deferred Skin: Rashes: no rashes Wounds: no wounds Neuro: General: patient oriented x3 and CN's II-XI intact bilaterally Cranial nerves: Yes CN's II-XII intact bilaterally and Yes Equal, round and reactive pupils present Cognition (Neuro): normal cognition Speech: normal speech Gait exam (Neuro): Normal gait present Motor exam (neuro): 5/5 motor strength present throughout Extrem: General: normal to inspection, full ROM, no joint enlargement and no pedal edema Objective Data Vital Signs Vital Signs: Vital Signs - 24 hr 02/19/24 20:57 02/19/24 23:20 02/20/24 01:15 Temperature 97.9 F Pulse Rate 108 H 99 101 H Respiratory Rate 18 18 18 Blood Pressure 123/58 L 111/62 106/68 Pulse Oximetry 98 97 96 Oxygen Delivery Room Air 02/20/24 02:30 02/20/24 02:30 02/20/24 04:00 Temperature 98.6 F Pulse Rate 85 85 84 Respiratory Rate 14 Blood Pressure 101/55 L Pulse Oximetry 96 Oxygen Delivery 02/20/24 04:00 02/20/24 04:30 02/20/24 06:00 Temperature 98.0 F Pulse Rate 84 77 Respiratory Rate 16 Blood Pressure 101/57 L Pulse Oximetry 92 93 Oxygen Delivery Room Air 02/20/24 06:00 02/20/24 08:00 02/20/24 12:00 Temperature 97.7 F 97.9 F Pulse Rate 77 69 67 Respiratory Rate 15 17 15 Blood Pressure 98/68 L 112/96 H 128/76 Pulse Oximetry 94 95 96 Oxygen Delivery 02/20/24 08:00 02/20/24 10:00 02/20/24 12:00 Temperature Pulse Rate 69 68 67 Respiratory Rate Blood Pressure Pulse Oximetry Oxygen Delivery Intake/Output Intake/Output: Intake & Output 02/17/24 02/18/24 02/19/24 02/20/24 23:59 23:59 23:59 23:59 Intake Total 1000 1317.0 Balance 1000 1317.0 Meds/Results Medications: Active Medications Generic Name Dose Route Start Last Admin Trade Name Freq PRN Reason Stop Dose Admin Aspirin 81 mg 02/20/24 09:00 02/20/24 07:54 Aspirin 81 Mg Enteric Tablet PO 81 mg QAM RAPHAEL Administration Atorvastatin Calcium 80 mg 02/20/24 21:00 Atorvastatin 40 Mg Tablet PO HS RAPHAEL Dextrose 12.5 gm 02/20/24 00:48 Dextrose 50% 25 Gm/50 Ml Syringe IV PUSH PRN PRN Hypoglycemia Protocol Enoxaparin Sodium 40 mg 02/20/24 09:00 02/20/24 07:54 Enoxaparin 40 Mg/0.4 Ml Syringe SUB-Q 40 mg DAILY RAPHAEL Administration Fenofibrate 145 mg 02/20/24 09:00 02/20/24 07:54 Fenofibrate Nanocrystallized 145 Mg Tablet PO 145 mg DAILY RAPHAEL Administration Glucagon 1 mg 02/20/24 00:48 Glucagon For Inj 1 Mg Vial IM PRN PRN Hypoglycemia Protocol Glucose 15 gm 02/20/24 00:48 Glucose Oral Gel 15 Gm Of Glucse In 37.5 Gm Tube PO PRN PRN Hypoglycemia Protocol Hydromorphone HCl 0.5 mg 02/20/24 02:41 02/20/24 12:29 Hydromorphone Hcl Inj (*Crx) 1 Mg/Ml Syr IV PUSH 0.5 mg Q3H PRN Administration Pain Rated 7-10 Potassium Chloride/Dextrose/Sod Cl 1,000 mls @ 200 mls/hr 02/20/24 00:50 02/20/24 10:45 Kcl 20 Meq/D5/0.45% Sod Chl IV CONT 200 mls/hr .Q5H RAPHAEL Infusion Insulin Human Regular 100 100 mls @ 1 mls/hr 10/24/24 00:50 02/20/24 12:30 units/ Sodium Chloride IV CONT 1 units/hr .Q24H RAPHAEL 1 mls/hr Titration Protocol 1 UNITS/HR Dextrose 1,000 mls @ 100 mls/hr 02/20/24 00:48 Dextrose 5% 1,000 Ml IVPB PRN PRN Hypoglycemia Protocol Levothyroxine Sodium 200 mcg 02/20/24 07:05 02/20/24 07:54 Levothyroxine Sodium 100 Mcg Tablet PO 200 mcg DAILY@0630 RAPHAEL Administration Lorazepam 1 mg 02/20/24 10:23 Lorazepam (*Crx) 1 Mg Tablet PO QHS PRN sleep Metformin HCl 1,000 mg 02/20/24 08:00 02/20/24 07:54 Metformin Hcl 500 Mg Tablet PO 1,000 mg BIDWM RAPHAEL Administration Miscellaneous Information 0 each 02/20/24 00:01 Patient Usually Brings Her Own Creon Since Pharmacy Does Not Carry This Strength. Please S XX 03/21/24 00:00 CLARIFY RAPHAEL Non-Formulary Medication 2 cap 02/20/24 07:00 [id number] [Creon] PO 03/21/24 06:59 TIDWMEAL [facility] Ondansetron HCl 4 mg 02/20/24 11:37 02/20/24 12:00 Ondansetron Inj 4 Mg/2 Ml Vial IV PUSH 4 mg Q4H PRN Administration Nausea And Vomiting Pantoprazole Sodium 40 mg 02/20/24 09:00 02/20/24 07:54 Pantoprazole 40 Mg Tablet PO 40 mg Q12HR RAPHAEL Administration Ticagrelor 90 mg 02/20/24 09:00 02/20/24 07:54 Ticagrelor 90 Mg Tablet PO 90 mg Q12HR RAPHAEL Administration Radiology Results: ITS Impressions Abdomen/Pelvis CT 02/19/24 23:28 IMPRESSION: 1. No acute intra-abdominal/pelvic process. Labs Labs: Laboratory Results - last 24 hr 02/19/24 02/20/24 02/20/24 21:51 01:48 02:23 WBC 9.3 RBC 4.20 Hgb 12.5 Hct 36.6 L MCV 87.1 MCH 29.8 MCHC 34.2 RDW 13.9 Plt Count 276 MPV 8.9 Immature Gran % (Auto) 1.4 H Neut % (Auto) 64.9 Lymph % (Auto) 27.9 [place] % (Auto) 5.0 Eos % (Auto) 0.5 Baso % (Auto) 0.3 Lymph # (Auto) 2.60 [place] # (Auto) 0.5 Eos # (Auto) 0.1 Baso # (Auto) 0.0 Abs Immat Gran (auto) 0.13 H Absolute Neuts (auto) 6.0 Absolute Nucleated RBC 0.000 Nucleated RBC % 0.0 Sodium 134 L Potassium 3.6 Chloride 103 Carbon Dioxide 24 Anion Gap 7 BUN 16 Creatinine 0.60 L Estim Creat Clear Calc 109 Estimated GFR > 60 Glucose 206 H POC Capillary Glucose 119 H 128 H Calcium 9.2 Phosphorus Magnesium Total Bilirubin 0.3 AST 18 ALT 19 Alkaline Phosphatase 94 Total Protein 7.0 Albumin 4.0 Triglycerides 1882 H Lipase 105 Serum HCG, Qual Negative Urine Color Yellow Urine Appearance Clear Urine pH 5.5 Ur Specific [place] 1.027 Urine Protein Negative Urine Glucose (UA) 3+ H Urine Ketones Trace H Ur Blood (Man) Negative Urine Nitrate Negative Urine Bilirubin Negative Urine Urobilinogen 0.2 Leukocyte Esterase Rfl Negative Nasal MRSA (PCR) 02/20/24 02/20/24 02/20/24 02:27 03:19 04:20 WBC RBC Hgb Hct MCV MCH MCHC RDW Plt Count MPV Immature Gran % (Auto) Neut % (Auto) Lymph % (Auto) [place] % (Auto) Eos % (Auto) Baso % (Auto) Lymph # (Auto) [place] # (Auto) Eos # (Auto) Baso # (Auto) Abs Immat Gran (auto) Absolute Neuts (auto) Absolute Nucleated RBC Nucleated RBC % Sodium Potassium Chloride Carbon Dioxide Anion Gap BUN Creatinine Estim Creat Clear Calc Estimated GFR Glucose POC Capillary Glucose 100 126 H Calcium Phosphorus Magnesium Total Bilirubin AST ALT Alkaline Phosphatase Total Protein Albumin Triglycerides Lipase Serum HCG, Qual Urine Color Urine Appearance Urine pH Ur Specific [place] Urine Protein Urine Glucose (UA) Urine Ketones Ur Blood (Man) Urine Nitrate Urine Bilirubin Urine Urobilinogen Leukocyte Esterase Rfl Nasal MRSA (PCR) Not detected 02/20/24 02/20/24 02/20/24 04:21 05:43 06:21 WBC 9.1 RBC 3.73 L Hgb 10.9 L Hct 33.3 L MCV 89.3 MCH 29.2 MCHC 32.7 RDW 14.1 Plt Count 237 MPV 9.0 Immature Gran % (Auto) 1.2 H Neut % (Auto) 58.6 Lymph % (Auto) 33.0 [place] % (Auto) 6.0 Eos % (Auto) 0.9 Baso % (Auto) 0.3 Lymph # (Auto) 3.01 [place] # (Auto) 0.6 Eos # (Auto) 0.1 Baso # (Auto) 0.0 Abs Immat Gran (auto) 0.11 H Absolute Neuts (auto) 5.3 Absolute Nucleated RBC 0.000 Nucleated RBC % 0.0 Sodium 135 L Potassium 4.0 Chloride 106 Carbon Dioxide 24 Anion Gap 5 BUN 14 Creatinine 0.50 L Estim Creat Clear Calc 122 Estimated GFR > 60 Glucose 113 H POC Capillary Glucose 143 H 135 H Calcium 8.2 L Phosphorus 4.1 Magnesium 1.6 Total Bilirubin 0.3 AST 18 ALT 17 Alkaline Phosphatase 76 Total Protein 6.0 L Albumin 3.4 L Triglycerides 1313 H Lipase 61 Serum HCG, Qual Urine Color Urine Appearance Urine pH Ur Specific [place] Urine Protein Urine Glucose (UA) Urine Ketones Ur Blood (Man) Urine Nitrate Urine Bilirubin Urine Urobilinogen Leukocyte Esterase Rfl Nasal MRSA (PCR) 02/20/24 02/20/24 02/20/24 07:52 09:07 10:20 WBC RBC Hgb Hct MCV MCH MCHC RDW Plt Count MPV Immature Gran % (Auto) Neut % (Auto) Lymph % (Auto) [place] % (Auto) Eos % (Auto) Baso % (Auto) Lymph # (Auto) [place] # (Auto) Eos # (Auto) Baso # (Auto) Abs Immat Gran (auto) Absolute Neuts (auto) Absolute Nucleated RBC Nucleated RBC % Sodium Potassium Chloride Carbon Dioxide Anion Gap BUN Creatinine Estim Creat Clear Calc Estimated GFR Glucose POC Capillary Glucose 156 H 194 H 156 H Calcium Phosphorus Magnesium Total Bilirubin AST ALT Alkaline Phosphatase Total Protein Albumin Triglycerides Lipase Serum HCG, Qual Urine Color Urine Appearance Urine pH Ur Specific [place] Urine Protein Urine Glucose (UA) Urine Ketones Ur Blood (Man) Urine Nitrate Urine Bilirubin Urine Urobilinogen Leukocyte Esterase Rfl Nasal MRSA (PCR) 02/20/24 02/20/24 02/20/24 11:26 11:27 12:30 WBC RBC Hgb Hct MCV MCH MCHC RDW Plt Count MPV Immature Gran % (Auto) Neut % (Auto) Lymph % (Auto) [place] % (Auto) Eos % (Auto) Baso % (Auto) Lymph # (Auto) [place] # (Auto) Eos # (Auto) Baso # (Auto) Abs Immat Gran (auto) Absolute Neuts (auto) Absolute Nucleated RBC Nucleated RBC % Sodium 135 L Potassium 4.2 Chloride 105 Carbon Dioxide 24 Anion Gap 6 BUN 9 D Creatinine 0.50 L Estim Creat Clear Calc 122 Estimated GFR > 60 Glucose 140 H POC Capillary Glucose 161 H 160 H Calcium 8.2 L Phosphorus Magnesium Total Bilirubin AST ALT Alkaline Phosphatase Total Protein Albumin Triglycerides Lipase Serum HCG, Qual Urine Color Urine Appearance Urine pH Ur Specific [place] Urine Protein Urine Glucose (UA) Urine Ketones Ur Blood (Man) Urine Nitrate Urine Bilirubin Urine Urobilinogen Leukocyte Esterase Rfl Nasal MRSA (PCR) 02/20/24 13:30 WBC RBC Hgb Hct MCV MCH MCHC RDW Plt Count MPV Immature Gran % (Auto) Neut % (Auto) Lymph % (Auto) [place] % (Auto) Eos % (Auto) Baso % (Auto) Lymph # (Auto) [place] # (Auto) Eos # (Auto) Baso # (Auto) Abs Immat Gran (auto) Absolute Neuts (auto) Absolute Nucleated RBC Nucleated RBC % Sodium Potassium Chloride Carbon Dioxide Anion Gap BUN Creatinine Estim Creat Clear Calc Estimated GFR Glucose POC Capillary Glucose 160 H Calcium Phosphorus Magnesium Total Bilirubin AST ALT Alkaline Phosphatase Total Protein Albumin Triglycerides Lipase Serum HCG, Qual Urine Color Urine Appearance Urine pH Ur Specific [place] Urine Protein Urine Glucose (UA) Urine Ketones Ur Blood (Man) Urine Nitrate Urine Bilirubin Urine Urobilinogen Leukocyte Esterase Rfl Nasal MRSA (PCR) Hospitalist MIPS Advance Care Plan I have confirmed that the patient's Advanced Care Plan is present, code status is documented, or surrogate decision maker is listed in patient medical record.: Yes Medication Reconciliation I have utilized all available resources to obtain, update and review the patients current medications (includes all prescriptions, OTC, herbals, cannabis, and nutritional supplements).: Yes
[2024-02-20 14:43] LABS: Glucose Point of Care 163 mg/dl (65-105)
[2024-02-20] MEDS: KCL 20 MEQ/D5/0.45% SOD CHL 1,000 ML 200 ML IV CONT ×2 (15:04→20:04)
[2024-02-20 15:50] LABS: Glucose Point of Care 169 mg/dl (65-105)
[2024-02-20] MEDS: CALCIUM GLUC 2,000 MG/NS 100ML 2,000 MG/100 ML BAG 100 MG IVPB (17:30)
[2024-02-20] MEDS: SODIUM CHLORIDE 0.9% IV 1,000 ML 999 ML IRRIGATION (17:30)
[2024-02-20] MEDS: ALBUMIN HUMAN 5% 999 GM XX (17:30)
[2024-02-20 17:32] LABS: Glucose Point of Care 164 mg/dl (65-105)
--- NOTE | 2024-02-20 17:45 | P.CONNP_ITS ---
Assessment and Plan Assessment and plan (1) Hypertriglyceridemia: Code(s): E78.1 - Pure hyperglyceridemia Status: Chronic Assessment and Plan: * noted on admission * already on insulin gtt * last session of plasmapheresis for this issue was on last admission about a month ago * appears symptomatic with regard to this issue * plasmapheresis today * goal of plasmapheresis therapy would be to get triglyceride level less than 600 * continue ongoing medical therapy (2) Abdominal pain: Qualifiers: Abdominal location: right upper quadrant Qualified Code(s): R10.11 - Right upper quadrant pain Code(s): R10.9 - Unspecified abdominal pain Status: Acute Assessment and Plan: * presumably due known history of chronic pancreatitis and hypertriglyceridemia * CT of abd/pelvis without any acute pathology * lipase normal * PRN pain medications (3) Insulin dependent diabetes mellitus: Status: Chronic Assessment and Plan: * on insulin gtt * plan transition to home insulin pump wit improved oral intake and triglyceride level I will continue to follow the patient with you while she remains hospitalized and make further recommendations as deemed necessary. Thank you for allowing me to participate in the care of this patient. History of Present Illness Reason for Consult Consult date: 02/20/24 Reason for consult: Other (plasmapheresis) Chief Complaint Chief complaint: Hypertriglycerides, Insulin tt History of Present Illness Narrative: The patient is a 48-year-old female with a past medical history as outlined below who presented to [facility] Emergency Room with complaints of worsening of her chronic abdominal pain. The patient has chronic abdominal pain but it seemed to acutely worsened about 48 hours ago if not longer. She described the pain as an achy sensation on the left side of her abdomen with radiation to her back and seem to be fairly continuous. Associated symptoms included nausea, vomiting, and diarrhea. She denies any chest pain, shortness of breath, fevers, chills, dysuria, hematuria, or hematochezia or melena. She stated the pain that she was having seem to be the same type of pain that she gets when her pancreatitis is acting up or when her triglyceride levels are elevated. She presented to the emergency room for further assessment. Workup and evaluation emergency room demonstrated the patient to be hemodynamically stable and in mild distress secondary to her abdominal pain. Routine blood test demonstrated a normal CBC and chemistry as well as a normal lipase level. However, her triglyceride level was quite elevated consistent with her known history of hypertriglyceridemia. Given her history of pancreatitis, CT scan of the abdomen pelvis was done which did not demonstrate any evidence of pancreatitis or any other acute intra-abdominal pathology. Much as on her previous admissions here to [facility], she was initiated on insulin drip and subsequently admitted to the intensive care unit for further monitoring of her symptoms and triglyceride levels. Since her admission, she feels a bit better with regard to her abdominal pain control but not completely resolved. She still has some intermittent nausea but per voices no vomiting or diarrhea. Renal consultation was requested for plasmapheresis for treatment of her hypertriglyceridemia. The patient has received plasmapheresis during her many hospitalizations in the past for her high triglyceride levels both here at [facility] and at [facility]. She has a power port line in place that has been used for this purpose. There have been some occasions where she has responded to more conservative therapy with regard to an insulin drip and oral medications alone as well. Although her triglyceride levels are better, plasmapheresis was requested in effort to expedite improvement in her triglyceride level and hopefully her overall symptoms. I saw the patient earlier today and currently while she is receiving plasmapheresis (seen on plasmapheresis at 5:35PM). Review of Systems Review of Systems: As per HPI. 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 Nausea Occult blood in stools PCOS (polycystic ovarian syndrome) Port-A-Cath in place Thyroid disorder Surgical History Surgical History History of appendectomy History of conization of cervix History of dilatation and curettage History of endometrial ablation History of exploratory laparotomy History of loop electrical excision procedure (LEEP) History of partial hysterectomy History of tonsillectomy History of tubal ligation History of wisdom tooth extraction Family History Family History Father Alcohol abuse Hypercholesteremia Hypertension Family history of alcoholism Family history of cardiovascular disease Diabetes mellitus Mother Hypercholesteremia Hypothyroid Cerebrovascular accident Family history of cardiovascular disease Diabetes mellitus Grandparent Skin cancer Colon cancer Heart disease Hypothyroid Cerebrovascular accident Sibling Autoimmune disorder Hypothyroid Kidney disorder Hypertension Diabetes mellitus Mother Family history of diabetes mellitus in first degree relative Family history of thyroid disease Father Family history of diabetes mellitus in first degree relative Patient's father is Other Family history of kidney disease Social History Social History Social History: She smokes a pack a day for the past 30 years. No alcohol or drug use. She has 2 dogs and a cat at home. Surrogate medical decision maker: José Miguel Jones, spouse. Code status: Full Smoking packs per day: 1 Smoking cigarettes per day: 20.0 Years smoked: 32 Smoking pack-years: 32.00 Smoking status: Current every day smoker Second hand tobacco smoke exposure: No Alcohol intake: never Drinks per week: 0 Substance use: never Substance use type: does not use Do You Feel Safe in your Home?: Yes Lack of Transportation: No Lack of Food: Never True Current Housing: I Have Housing Concerned About Future Housing: No Difficulty Paying Gas/Electric Bills: No Difficulty Paying for Meds: No Currently Unemployed: No Education: Associate Degree Difficulty w/ Childcare or Family Care: No Living arrangements: with family Spiritual care concerns: No Meds Home Medications and Allergies Home Medications Medication Instructions Recorded Confirmed Type fenofibrate nanocrystallized 145 145 mg PO DAILY #90 tabs 07/24/22 02/20/24 Rx mg tablet ondansetron 4 mg disintegrating 4 mg PO Q8H PRN nausea and 12/11/22 02/20/24 Rx tablet vomiting #30 tabs metformin 500 mg tablet 1,000 mg PO BID #180 tabs 12/19/22 02/20/24 Rx levothyroxine 200 mcg tablet 200 mcg PO DAILY 07/21/23 02/20/24 History [id number]-[id number] 2 cap PO TIDWMEAL 07/22/23 02/20/24 History 36,000-114,000-180,000 unit capsule,delay rel (Creon) aspirin 81 mg tablet,delayed 81 mg PO QAM #30 tabs 07/25/23 02/20/24 Rx release pantoprazole 40 mg tablet,delayed 40 mg PO BID #30 tabs 04/25/24 10/24/24 Rx release (Protonix) citalopram 40 mg tablet 40 mg PO DAILY 08/31/23 02/20/24 History ticagrelor 90 mg tablet (Brilinta) 90 mg PO BID #180 tabs 10/03/23 02/20/24 Rx bupropion HCl 150 mg tablet,12 hr 150 mg PO HS 10/09/23 02/20/24 History sustained-release pen needle, diabetic 32 gauge x #1,200 ea 11/14/23 02/20/24 Rx 5/32 (BD Ultra-Fine Diandra Pen Needle) insulin syringe-needle U-100 0.3 #100 ea 11/29/23 02/20/24 Rx mL 31 gauge x 5/16 (BD Insulin Syringe Ultra-Fine) trazodone 100 mg tablet 200 mg PO HS #180 tabs 12/26/23 02/20/24 Rx lorazepam 1 mg tablet 1 mg PO QHS PRN sleep #90 tabs 12/31/23 02/20/24 Rx atorvastatin 80 mg tablet 80 mg PO HS #90 tabs 02/12/24 02/20/24 Rx Allergies Allergy/AdvReac Type Severity Reaction Status Date / Time adhesive tape Allergy Mild Rash Verified 02/19/24 20:50 [place] pepper [green pepper] Allergy Unknown Hives Verified 02/19/24 20:50 sucralose Allergy Migraine Verified 02/19/24 20:50 [From Splenda (sucralose)] Artificial Sweetners AdvReac Migraine Uncoded 01/31/24 13:32 Vital Signs Vital Signs Temp Pulse Resp BP Pulse Ox O2 Del Method 02/20/24 17:45 97.9 F 75 16 136/91 H 02/20/24 17:30 97.9 F 79 16 139/77 02/20/24 14:00 68 02/20/24 12:00 67 02/20/24 10:00 68 02/20/24 08:00 69 02/20/24 12:00 97.9 F 67 15 128/76 96 02/20/24 08:00 97.7 F 69 17 112/96 H 95 02/20/24 06:00 77 15 98/68 L 94 02/20/24 06:00 77 02/20/24 04:30 93 Room Air 02/20/24 04:00 98.0 F 84 16 101/57 L 92 02/20/24 04:00 84 02/20/24 02:30 98.6 F 85 14 101/55 L 96 02/20/24 02:30 85 02/20/24 01:15 101 H 18 106/68 96 02/19/24 23:20 99 18 111/62 97 02/19/24 20:57 97.9 F 108 H 18 123/58 L 98 Room Air Exam Narrative: GENERAL APPEARANCE: mildly ill appearing female in no acute distress HEENT: normocephalic, atraumatic, normal conjunctiva and sclera, nares patient NECK: no lymphadenopathy, thyromegaly, or JVD MOUTH: dry lips, teeth, and gums CARDIOVASCULAR: RRR, normal S1 and S2, no rub RESPIRATORY: clear to auscultation bilaterally ABDOMEN: soft but with TTP in epigastric area, positive bowel sounds present EXTREMITIES: no evidence of cyanosis, clubbing, or edema NEUROLOGICAL: alert and oriented x 3; CN II - XII intact bilaterally; no focal deficits noted Results Lab Results 02/21/24 04:16 02/21/24 04:16 Lab results: Most recent lab results Calcium 8.2 mg/dL (8.4-10.2) L 02/20/24 11:27 Phosphorus 4.1 mg/dL (2.5-4.5) 02/20/24 04:21 Magnesium 1.6 mg/dL (1.6-2.3) 02/20/24 04:21
[2024-02-20 20:29] LABS: Glucose Point of Care 149 mg/dl (65-105)
[2024-02-20] MEDS: HEPARIN SODIUM, PORCINE 10,000 UNITS/10 ML VIAL 10000 UNITS IV PUSH (20:31)
[2024-02-20 21:23] LABS: Anion Gap 8 mmol/L (4-12); Blood Urea Nitrogen 5 mg/dL (7-17); Calcium 7.7 mg/dL (8.4-10.2); Carbon Dioxide 22 mmol/L (22-30); Chloride 107 mmol/L (98-107); Estimated CRCL calculation 148 ml/min; Estimated Glomerular Filt Rate > 60; Glucose 151 mg/dL (65-110); Potassium 4.3 mmol/L (3.4-5.0); Sodium 137 mmol/L (137-145)
[2024-02-20] MEDS: ATORVASTATIN 40 MG TABLET 80 MG PO (21:23)
[2024-02-20] MEDS: LORazepam (*CRX) 1 MG TABLET PO (21:23)
[2024-02-21] VITALS (15 sets, daily range): BP systolic 101–136; BP diastolic 52–73; PULSE 62–102; RESP 12–19; TEMP 36.4–37.1; O2SAT 96–100
[2024-02-21] MEDS: HYDROmorphone HCL INJ (*CRX) 1 MG/ML SYR 0.5 MG IV PUSH ×7 (00:42→20:09)
[2024-02-21 05:04] LABS: Hematocrit 36.4 % (37.0-47.0); Hemoglobin 12.2 g/dL (12.0-15.0); Mean Corpuscular HGB Conc 33.5 g/dl (32-36); Mean Corpuscular Hemoglobin 29.5 pg (26-34); Mean Corpuscular Volume 88.1 fl (80-100); Mean Platelet Volume 9.1 fl (7.4-10.4); Platelet Count Result 239 k/mm3 (150-375); Red Blood Count 4.13 M/mm3 (4.2-5.4); Red Cell Distribution Width 14.2 % (11.5-14.5); White Blood Count 8.1 K/mm3 (4.5-10.0)
[2024-02-21 05:16] LABS: Alanine Aminotransferase 11 U/L (6-35); Alkaline Phosphatase 36 U/L (38-126); Anion Gap 8 mmol/L (4-12); Aspartate Amino Transferase 18 U/L (14-36); Bilirubin,Total 0.6 mg/dL (0.2-1.3); Blood Urea Nitrogen 4 mg/dL (7-17); Calcium 8.4 mg/dL (8.4-10.2); Carbon Dioxide 23 mmol/L (22-30); Chloride 106 mmol/L (98-107); Estimated CRCL calculation 122 ml/min; Estimated Glomerular Filt Rate > 60; Glucose 95 mg/dL (65-110); Magnesium 1.4 mg/dL (1.6-2.3); Phosphorus 3.1 mg/dL (2.5-4.5); Potassium 3.9 mmol/L (3.4-5.0); Sodium 137 mmol/L (137-145)
[2024-02-21 05:34] LABS: Triglycerides 664 mg/dL (<150)
[2024-02-21] MEDS: LEVOTHYROXINE SODIUM 100 MCG TABLET 200 MCG PO (06:40)
[2024-02-21] MEDS: ONDANSETRON INJ 4 MG/2 ML VIAL IV PUSH ×4 (06:48→20:09)
[2024-02-21] MEDS: FENOFIBRATE NANOCRYSTALLIZED 145 MG TABLET PO (07:52)
[2024-02-21] MEDS: metFORMIN HCL 500 MG TABLET 1000 MG PO ×2 (07:52→17:08)
[2024-02-21] MEDS: ASPIRIN 81 MG ENTERIC TABLET PO (07:53)
[2024-02-21] MEDS: PANTOPRAZOLE 40 MG TABLET PO ×2 (07:53→20:09)
[2024-02-21] MEDS: ENOXAPARIN 40 MG/0.4 ML SYRINGE SUB-Q (07:53)
[2024-02-21] MEDS: TICAGRELOR 90 MG TABLET PO ×2 (07:54→20:09)
[2024-02-21 08:24] LABS: Glucose Point of Care 120 mg/dl (65-105)
--- NOTE | 2024-02-21 08:30 | PC.NURSE ---
This patient, Casandra Jones, was transferred to [facility] on 02/21/24 at 0830. Personal belongings sent with patient. Report given to Semaj. Appropriate documentation sent with patient.
--- NOTE | 2024-02-21 08:37 | PC.NURSE ---
This patient, Casandra Jones, was received from ICU-4 on 02/21/24 at 0837. Report received from CLAU Shrestha. Patient/family oriented to unit policies and routines
--- NOTE | 2024-02-21 10:49 | P.PNNP_ITS ---
Progress Note: A&P Assessment and Plan (1) Hypertriglyceridemia: Code(s): E78.1 - Pure hyperglyceridemia Status: Chronic Assessment and Plan: * noted on admission * s/p plasmapheresis yesterday * goal of plasmapheresis therapy is to get triglyceride level less than 600 - fairly close to goal * hold further plasmapheresis at this time * continue ongoing medical therapy (2) Abdominal pain: Qualifiers: Abdominal location: right upper quadrant Qualified Code(s): R10.11 - Right upper quadrant pain Code(s): R10.9 - Unspecified abdominal pain Status: Acute Assessment and Plan: * due known history of chronic pancreatitis (?) * CT of abd/pelvis without any acute pathology * PRN pain medications (3) Insulin dependent diabetes mellitus: Status: Chronic Assessment and Plan: * off insulin gtt * back on insulin pump * follow accu-cheks * monitor glycemic control Not much else to add -- will continue to follow from a distance. Subjective Date/time seen: 02/21/24 10:49 Interval history: Follow-up for hypertriglyceridemia. Status post plasmapheresis yesterday afternoon and tolerated the procedure reasonably well; abdominal pain and nausea is better but still present; weaned off insulin gtt and transitioned back to her insulin pump; overall, she feels better but not to her usual baseline status. Exam Narrative: General: WD/WN female in NAD Heart: normal S1 and S2; no rub Lungs: clear to auscultation Abdomen: soft, mild TTP present; positive bowel sounds Extremities: no cyanosis or clubbing; trace edema Skin: warm and dry Objective Data Vital Signs Vital Signs: Vital Signs Temp Pulse Resp BP Pulse Ox O2 Del Method 02/21/24 10:00 70 02/21/24 08:00 75 02/21/24 08:00 97.7 F 75 19 119/54 L 98 02/21/24 06:00 71 02/21/24 04:00 62 02/21/24 04:00 Room Air 02/21/24 04:00 97.9 F 68 12 118/57 L 98 02/21/24 02:00 65 02/21/24 00:00 97.9 F 78 14 136/73 98 02/21/24 00:00 75 02/21/24 00:00 Room Air 02/20/24 22:00 64 02/20/24 20:00 66 02/20/24 20:00 Room Air 02/20/24 20:00 97.8 F 76 16 108/63 98 02/20/24 18:00 78 12 119/68 99 02/20/24 16:00 98 F 75 16 116/78 69 L 02/20/24 18:00 70 02/20/24 16:00 71 02/20/24 19:45 97.8 F 74 16 108/63 02/20/24 19:30 98.7 F 72 16 108/57 L 02/20/24 18:15 97.9 F 71 16 128/76 02/20/24 18:00 97.9 F 70 16 119/68 02/20/24 17:45 97.9 F 75 16 136/91 H 02/20/24 17:30 97.9 F 79 16 139/77 02/20/24 14:00 68 Intake/Output Intake/Output: Intake & Output 02/18/24 02/19/24 02/20/24 02/21/24 23:59 23:59 23:59 23:59 Intake Total 1000 4087.2 270 Output Total 1000 3200 Balance 1000 3087.2 -2930 Meds/Results Medications: Active Medications Generic Name Dose Route Start Last Admin Trade Name Freq PRN Reason Stop Dose Admin Aspirin 81 mg 02/20/24 09:00 02/21/24 07:53 Aspirin 81 Mg Enteric Tablet PO 81 mg QAM RAPHAEL Administration Atorvastatin Calcium 80 mg 02/20/24 21:00 02/20/24 21:23 Atorvastatin 40 Mg Tablet PO 80 mg HS RAPHAEL Administration Dextrose 12.5 gm 02/20/24 00:48 Dextrose 50% 25 Gm/50 Ml Syringe IV PUSH PRN PRN Hypoglycemia Protocol Enoxaparin Sodium 40 mg 02/20/24 09:00 02/21/24 07:53 Enoxaparin 40 Mg/0.4 Ml Syringe SUB-Q 40 mg DAILY RAPHAEL Administration Fenofibrate 145 mg 02/20/24 09:00 02/21/24 07:52 Fenofibrate Nanocrystallized 145 Mg Tablet PO 145 mg DAILY RAPHAEL Administration Glucagon 1 mg 02/20/24 00:48 Glucagon For Inj 1 Mg Vial IM PRN PRN Hypoglycemia Protocol Glucose 15 gm 02/20/24 00:48 Glucose Oral Gel 15 Gm Of Glucse In 37.5 Gm Tube PO PRN PRN Hypoglycemia Protocol Hydromorphone HCl 0.5 mg 02/20/24 02:41 02/21/24 10:22 Hydromorphone Hcl Inj (*Crx) 1 Mg/Ml Syr IV PUSH 0.5 mg Q3H PRN Administration Pain Rated 7-10 Dextrose 1,000 mls @ 100 mls/hr 02/20/24 00:48 Dextrose 5% 1,000 Ml IVPB PRN PRN Hypoglycemia Protocol Magnesium Sulfate 2 gm in 50 mls @ 25 mls/hr 02/21/24 12:00 Magnesium Sulf 2 Gm/Water 50ml IVPB 02/21/24 13:59 ONCE ONE Levothyroxine Sodium 200 mcg 02/20/24 07:05 02/21/24 06:40 Levothyroxine Sodium 100 Mcg Tablet PO 200 mcg DAILY@0630 RAPHAEL Administration Lorazepam 1 mg 02/20/24 10:23 02/20/24 21:23 Lorazepam (*Crx) 1 Mg Tablet PO 1 mg QHS PRN Administration sleep Metformin HCl 1,000 mg 02/20/24 08:00 02/21/24 07:52 Metformin Hcl 500 Mg Tablet PO 1,000 mg BIDWM RAPHAEL Administration Miscellaneous Information 0 each 02/20/24 00:01 Patient Usually Brings Her Own Creon Since Pharmacy Does Not Carry This Strength. Please S XX 03/21/24 00:00 CLARIFY RAPHAEL Non-Formulary Medication 2 cap 02/20/24 07:00 Hvyool-Efbchzjb-Kglmkzc [Creon] PO 03/21/24 06:59 TIDWMEAL RAPHAEL Ondansetron HCl 4 mg 02/20/24 11:37 02/21/24 10:22 Ondansetron Inj 4 Mg/2 Ml Vial IV PUSH 4 mg Q4H PRN Administration Nausea And Vomiting Pantoprazole Sodium 40 mg 02/20/24 09:00 02/21/24 07:53 Pantoprazole 40 Mg Tablet PO 40 mg Q12HR RAPHAEL Administration Ticagrelor 90 mg 02/20/24 09:00 02/21/24 07:54 Ticagrelor 90 Mg Tablet PO 90 mg Q12HR RAPHAEL Administration Radiology Results: ITS Impressions Abdomen/Pelvis CT 02/19/24 23:28 IMPRESSION: 1. No acute intra-abdominal/pelvic process. Labs Labs: Laboratory Tests 02/21/24 04:16 02/21/24 04:16 Calcium 8.4 Phosphorus 3.1 Magnesium 1.4 L Total Bilirubin 0.6 AST 18 ALT 11 Alkaline Phosphatase 36 L Total Protein 6.0 L Albumin 4.0 Triglycerides 664 H
[2024-02-21 11:28] LABS: Glucose Point of Care 126 mg/dl (65-105)
[2024-02-21] MEDS: MAGNESIUM SULF 2 GM/WATER 50ML 2 GM/50 ML BAG IVPB (13:24)
[2024-02-21 16:38] LABS: Glucose Point of Care 106 mg/dl (65-105)
[2024-02-21] MEDS: ACETAMINOPHEN 325 MG TABLET 650 MG PO (17:07)
--- NOTE | 2024-02-21 18:02 | P.PNIM_ITS ---
Progress Note: A&P Assessment and Plan (1) Abdominal pain: Code(s): R10.9 - Unspecified abdominal pain Status: Acute Assessment and Plan: Secondary to chronic pancreatitis and hypertriglyceridemia. Lipase level is normal at this time Patient is being treated with insulin infusion and IV fluids for hypertriglyceridemia. Consult nephrology for plasmapheresis. Monitor triglyceride levels. Clear liquid diet and advance as tolerated Pain control ordered Creon with meals (2) Chronic pancreatitis: Code(s): K86.1 - Other chronic pancreatitis Status: Acute Assessment and Plan: See above (3) Hypertriglyceridemia: Code(s): E78.1 - Pure hyperglyceridemia Status: Chronic Assessment and Plan: Continue statin and fenofibrate. Patient also on insulin infusion at this time. Plan for plasmapheresis (4) Insulin dependent diabetes mellitus: Status: Chronic Assessment and Plan: Currently on insulin drip. We will transition back to insulin pump once patient started eating and triglyceride levels are down (5) GERD (gastroesophageal reflux disease): Qualifiers: Esophagitis presence: esophagitis presence not specified Qualified Code(s): K21.9 - Gastro-esophageal reflux disease without esophagitis Code(s): K21.9 - Gastro-esophageal reflux disease without esophagitis Status: Acute Assessment and Plan: Continue PPI (6) CAD (coronary artery disease): Code(s): I25.10 - Atherosclerotic heart disease of [place] coronary artery without angina pectoris Status: Chronic Assessment and Plan: Continue aspirin Brilinta statin Patient is not on Justin/ARB or beta-lelo as an outpatient Subjective Date/time seen: 02/21/24 18:02 Interval history: Patient still complains of nausea and abdominal pain. Her triglycerides are 664. Received plasmapheresis yesterday. Patient complains of right shoulder pain which is chronic. Advised to take Tylenol. Possible discharge tomorrow Review of Systems Review of Systems: ABDOMINAL PAIN, BODY ACHES All systems reviewed & are unremarkable except as noted in HPI and below (HPI) Exam Narrative: General: Pt is alert awake and in NAD Lungs/Chest: Trachea central Clear BS B/L, No crackles or wheezing. Twin Port-A-Cath in anterior chest Cardiac: RRR. Normal S1 S2. No murmurs Circulation: Pedal pulses are intact and symmetrical. Abdomen: Normal bowel sounds.. Soft. Tenderness in left upper quadrant. No guarding or rigidity Extremities: No clubbing, cyanosis or edema. Warm : Pettit in place Neurologic: Follows commands. Moves all 4 extremities PERRL Skin: No Rash Const: General: comfortable, no acute distress, well developed, alert, awake and average body habitus Nutritional Appearance: average body habitus Orientation/consciousness: patient oriented x3 HENMT: Head: normal to inspection, normocephalic and atraumatic Ears: hearing grossly normal bilaterally Face/Nose/Sinus: normal facial exam Face and sinus: normal facial exam Eyes: General: appearance normal, both eyes and all related structures Pupils: Equal, round and reactive pupils present EOM: EOMs intact bilaterally Neck: Neck: full ROM, no lymphadenopathy and no JVD Thyroid: thyroid normal Lymphatic: no lymphadenopathy noted Resp: Effort & Inspection: normal respiratory effort and able to speak in complete sentences Auscultation: clear to auscultation bilaterally Cardio: Jugular venous distension: no JVD Rate: regular rate Rhythm: regular rhythm Heart sounds: S1 normal heart sound present and S2 normal heart sound present GI: Inspection: obesity : General: Yes deferred Skin: Rashes: no rashes Wounds: no wounds Neuro: General: patient oriented x3 and CN's II-XI intact bilaterally Cranial nerves: Yes CN's II-XII intact bilaterally and Yes Equal, round and reactive pupils present Cognition (Neuro): normal cognition Speech: normal speech Gait exam (Neuro): Normal gait present Motor exam (neuro): 5/5 motor strength present throughout Extrem: General: normal to inspection, full ROM, no joint enlargement and no pedal edema Objective Data Vital Signs Vital Signs: Vital Signs - 24 hr 02/20/24 18:15 02/20/24 19:30 02/20/24 19:45 Temperature 97.9 F 98.7 F 97.8 F Pulse Rate 71 72 74 Respiratory Rate 16 16 16 Blood Pressure 128/76 108/57 L 108/63 Pulse Oximetry Oxygen Delivery 02/20/24 20:00 02/20/24 20:00 02/20/24 20:00 Temperature 97.8 F Pulse Rate 76 66 Respiratory Rate 16 Blood Pressure 108/63 Pulse Oximetry 98 Oxygen Delivery Room Air 02/20/24 22:00 02/21/24 00:00 02/21/24 00:00 Temperature Pulse Rate 64 75 Respiratory Rate Blood Pressure Pulse Oximetry Oxygen Delivery Room Air 02/21/24 00:00 02/21/24 02:00 02/21/24 04:00 Temperature 97.9 F 97.9 F Pulse Rate 78 65 68 Respiratory Rate 14 12 Blood Pressure 136/73 118/57 L Pulse Oximetry 98 98 Oxygen Delivery 02/21/24 04:00 02/21/24 04:00 02/21/24 06:00 Temperature Pulse Rate 62 71 Respiratory Rate Blood Pressure Pulse Oximetry Oxygen Delivery Room Air 02/21/24 08:00 02/21/24 08:00 02/21/24 10:00 Temperature 97.7 F Pulse Rate 75 75 70 Respiratory Rate 19 Blood Pressure 119/54 L Pulse Oximetry 98 Oxygen Delivery 02/21/24 12:00 02/21/24 12:00 02/21/24 14:00 Temperature 97.6 F Pulse Rate 90 79 82 Respiratory Rate 16 Blood Pressure 118/58 L Pulse Oximetry 98 Oxygen Delivery 02/21/24 12:00 02/21/24 16:00 02/21/24 16:00 Temperature 98.7 F Pulse Rate 79 99 Respiratory Rate 18 Blood Pressure 127/67 Pulse Oximetry 100 Oxygen Delivery Room Air Room Air 02/21/24 16:00 Temperature Pulse Rate 84 Respiratory Rate Blood Pressure Pulse Oximetry Oxygen Delivery Intake/Output Intake/Output: Intake & Output 02/18/24 02/19/24 02/20/24 02/21/24 23:59 23:59 23:59 23:59 Intake Total 1000 4087.2 750 Output Total 1000 3200 Balance 1000 3087.2 -2450 Meds/Results Medications: Active Medications Generic Name Dose Route Start Last Admin Trade Name Freq PRN Reason Stop Dose Admin Acetaminophen 650 mg 02/21/24 15:16 02/21/24 17:07 Acetaminophen 325 Mg Tablet PO 650 mg Q4H PRN Administration Headache Aspirin 81 mg 02/20/24 09:00 02/21/24 07:53 Aspirin 81 Mg Enteric Tablet PO 81 mg QAM RAPHAEL Administration Atorvastatin Calcium 80 mg 02/20/24 21:00 02/20/24 21:23 Atorvastatin 40 Mg Tablet PO 80 mg HS RAPHAEL Administration Dextrose 12.5 gm 02/20/24 00:48 Dextrose 50% 25 Gm/50 Ml Syringe IV PUSH PRN PRN Hypoglycemia Protocol Enoxaparin Sodium 40 mg 02/20/24 09:00 02/21/24 07:53 Enoxaparin 40 Mg/0.4 Ml Syringe SUB-Q 40 mg DAILY RAPHAEL Administration Fenofibrate 145 mg 02/20/24 09:00 02/21/24 07:52 Fenofibrate Nanocrystallized 145 Mg Tablet PO 145 mg DAILY RAPHAEL Administration Glucagon 1 mg 02/20/24 00:48 Glucagon For Inj 1 Mg Vial IM PRN PRN Hypoglycemia Protocol Glucose 15 gm 02/20/24 00:48 Glucose Oral Gel 15 Gm Of Glucse In 37.5 Gm Tube PO PRN PRN Hypoglycemia Protocol Hydromorphone HCl 0.5 mg 02/20/24 02:41 02/21/24 17:08 Hydromorphone Hcl Inj (*Crx) 1 Mg/Ml Syr IV PUSH 0.5 mg Q3H PRN Administration Pain Rated 7-10 Dextrose 1,000 mls @ 100 mls/hr 02/20/24 00:48 Dextrose 5% 1,000 Ml IVPB PRN PRN Hypoglycemia Protocol Levothyroxine Sodium 200 mcg 02/20/24 07:05 02/21/24 06:40 Levothyroxine Sodium 100 Mcg Tablet PO 200 mcg DAILY@0630 RAPHAEL Administration Lorazepam 1 mg 02/20/24 10:23 02/20/24 21:23 Lorazepam (*Crx) 1 Mg Tablet PO 1 mg QHS PRN Administration sleep Metformin HCl 1,000 mg 02/20/24 08:00 02/21/24 17:08 Metformin Hcl 500 Mg Tablet PO 1,000 mg BIDWM RAPHAEL Administration Miscellaneous Information 0 each 02/20/24 00:01 Patient Usually Brings Her Own Creon Since Pharmacy Does Not Carry This Strength. Please S XX 03/21/24 00:00 CLARIFY RAPHAEL Non-Formulary Medication 2 cap 02/20/24 07:00 Tjadvw-Jhsbuyis-Ihtmcip [Creon] PO 03/21/24 06:59 TIDWMEAL RAPHAEL Ondansetron HCl 4 mg 02/20/24 11:37 02/21/24 15:13 Ondansetron Inj 4 Mg/2 Ml Vial IV PUSH 4 mg Q4H PRN Administration Nausea And Vomiting Pantoprazole Sodium 40 mg 02/20/24 09:00 02/21/24 07:53 Pantoprazole 40 Mg Tablet PO 40 mg Q12HR RAPHAEL Administration Ticagrelor 90 mg 02/20/24 09:00 02/21/24 07:54 Ticagrelor 90 Mg Tablet PO 90 mg Q12HR RAPHAEL Administration Radiology Results: ITS Impressions Abdomen/Pelvis CT 02/19/24 23:28 IMPRESSION: 1. No acute intra-abdominal/pelvic process. Labs Labs: Laboratory Results - last 24 hr 02/20/24 02/20/24 02/20/24 18:01 20:24 21:01 WBC RBC Hgb Hct MCV MCH MCHC RDW Plt Count MPV Sodium Cancelled 137 Potassium Cancelled 4.3 Chloride Cancelled 107 Carbon Dioxide Cancelled 22 Anion Gap Cancelled 8 BUN Cancelled 5 L Creatinine Cancelled 0.40 L Estim Creat Clear Calc Cancelled 148 Estimated GFR Cancelled > 60 Glucose Cancelled 151 H POC Capillary Glucose 149 H Calcium Cancelled 7.7 L Phosphorus Magnesium Total Bilirubin AST ALT Alkaline Phosphatase Total Protein Albumin Triglycerides 02/21/24 02/21/24 02/21/24 04:16 08:19 11:15 WBC 8.1 RBC 4.13 L Hgb 12.2 Hct 36.4 L MCV 88.1 MCH 29.5 MCHC 33.5 RDW 14.2 Plt Count 239 MPV 9.1 Sodium 137 Potassium 3.9 Chloride 106 Carbon Dioxide 23 Anion Gap 8 BUN 4 L Creatinine 0.50 L Estim Creat Clear Calc 122 Estimated GFR > 60 Glucose 95 POC Capillary Glucose 120 H 126 H Calcium 8.4 Phosphorus 3.1 Magnesium 1.4 L Total Bilirubin 0.6 AST 18 ALT 11 Alkaline Phosphatase 36 L Total Protein 6.0 L Albumin 4.0 Triglycerides 664 H 02/21/24 16:36 WBC RBC Hgb Hct MCV MCH MCHC RDW Plt Count MPV Sodium Potassium Chloride Carbon Dioxide Anion Gap BUN Creatinine Estim Creat Clear Calc Estimated GFR Glucose POC Capillary Glucose 106 H Calcium Phosphorus Magnesium Total Bilirubin AST ALT Alkaline Phosphatase Total Protein Albumin Triglycerides Hospitalist MIPS Advance Care Plan I have confirmed that the patient's Advanced Care Plan is present, code status is documented, or surrogate decision maker is listed in patient medical record.: Yes Medication Reconciliation I have utilized all available resources to obtain, update and review the patients current medications (includes all prescriptions, OTC, herbals, cannabis, and nutritional supplements).: Yes
[2024-02-21 20:01] LABS: Glucose Point of Care 78 mg/dl (65-105)
[2024-02-21] MEDS: ATORVASTATIN 40 MG TABLET 80 MG PO (20:09)
[2024-02-21] MEDS: LORazepam (*CRX) 1 MG TABLET PO (20:13)
[2024-02-22] VITALS (11 sets, daily range): BP systolic 82–108; BP diastolic 42–60; PULSE 84–94; RESP 14–18; TEMP 36.4–36.9; O2SAT 93–98
[2024-02-22] MEDS: HYDROmorphone HCL INJ (*CRX) 1 MG/ML SYR 0.5 MG IV PUSH ×6 (00:03→20:14)
[2024-02-22] MEDS: ONDANSETRON INJ 4 MG/2 ML VIAL IV PUSH ×3 (00:03→08:47)
[2024-02-22 04:50] LABS: Hemoglobin 11.7 g/dL (12.0-15.0); Mean Corpuscular HGB Conc 32.5 g/dl (32-36); Mean Corpuscular Hemoglobin 29.2 pg (26-34); Mean Corpuscular Volume 89.8 fl (80-100); Mean Platelet Volume 8.8 fl (7.4-10.4); Platelet Count Result 221 k/mm3 (150-375); Red Blood Count 4.01 M/mm3 (4.2-5.4); Red Cell Distribution Width 14.3 % (11.5-14.5); White Blood Count 8.3 K/mm3 (4.5-10.0)
[2024-02-22 05:05] LABS: Alanine Aminotransferase 12 U/L (6-35); Albumin Level 3.8 g/dL (3.5-5.1); Alkaline Phosphatase 48 U/L (38-126); Anion Gap 7 mmol/L (4-12); Aspartate Amino Transferase 16 U/L (14-36); Bilirubin,Total 0.4 mg/dL (0.2-1.3); Blood Urea Nitrogen 11 mg/dL (7-17); Calcium 9.1 mg/dL (8.4-10.2); Carbon Dioxide 26 mmol/L (22-30); Chloride 106 mmol/L (98-107); Estimated CRCL calculation 67 ml/min; Estimated Glomerular Filt Rate 59; Glucose 100 mg/dL (65-110); Magnesium 1.9 mg/dL (1.6-2.3); Phosphorus 4.8 mg/dL (2.5-4.5); Potassium 4.3 mmol/L (3.4-5.0); Sodium 139 mmol/L (137-145)
[2024-02-22 05:21] LABS: Triglycerides 605 mg/dL (<150)
[2024-02-22] MEDS: LEVOTHYROXINE SODIUM 100 MCG TABLET 200 MCG PO (05:50)
[2024-02-22 08:20] LABS: Glucose Point of Care 109 mg/dl (65-105)
[2024-02-22] MEDS: ENOXAPARIN 40 MG/0.4 ML SYRINGE SUB-Q (09:02)
[2024-02-22] MEDS: TICAGRELOR 90 MG TABLET PO ×2 (09:03→20:14)
[2024-02-22] MEDS: metFORMIN HCL 500 MG TABLET 1000 MG PO ×2 (09:03→16:18)
[2024-02-22] MEDS: PANTOPRAZOLE 40 MG TABLET PO ×2 (09:03→20:14)
[2024-02-22] MEDS: FENOFIBRATE NANOCRYSTALLIZED 145 MG TABLET PO (09:03)
[2024-02-22] MEDS: ASPIRIN 81 MG ENTERIC TABLET PO (09:03)
--- NOTE | 2024-02-22 09:56 | PM.IMPN ---
Progress Note: A&P Assessment and Plan (1) Abdominal pain: Code(s): R10.9 - Unspecified abdominal pain Status: Acute Assessment and Plan: Secondary to chronic pancreatitis and hypertriglyceridemia. Lipase level is normal at this time Patient is being treated with insulin infusion and IV fluids for hypertriglyceridemia. Nephrology consulted and plasmapheresis done 02/19. Monitor triglyceride levels. Advance diet as tolerated. Creon with meals Analgesics, antiemetics, laxatives ordered. 02/21 Triglycerides 605 mg/dl. (2) Chronic pancreatitis: Code(s): K86.1 - Other chronic pancreatitis Status: Acute Assessment and Plan: See above (3) Hypertriglyceridemia: Code(s): E78.1 - Pure hyperglyceridemia Status: Chronic Assessment and Plan: Continue statin and fenofibrate. (4) Insulin dependent diabetes mellitus: Status: Chronic Assessment and Plan: 02/21 FBS 100 Continue metformin (5) GERD (gastroesophageal reflux disease): Qualifiers: Esophagitis presence: esophagitis presence not specified Qualified Code(s): K21.9 - Gastro-esophageal reflux disease without esophagitis Code(s): K21.9 - Gastro-esophageal reflux disease without esophagitis Status: Acute Assessment and Plan: Continue PPI (6) CAD (coronary artery disease): Code(s): I25.10 - Atherosclerotic heart disease of [place] coronary artery without angina pectoris Status: Chronic Assessment and Plan: Continue aspirin Brilinta statin Patient is not on Justin/ARB or beta-lelo as an outpatient due to chronic low blood pressures Subjective Date/time seen: 02/22/24 09:56 Interval history: Continues to complain of moderate epigastric abdominal pain with associated nausea. No emesis. Tolerating toes to better for breakfast. No chest pain. Some shortness of breath with activity. No swelling. Constipated. No history of blood in stool or urine. No difficulty urinating. Has been up to bathroom independently. Has a history of chronic low blood pressures 80s to 90s. That is her baseline according to patient. Normally she does not defecate while in hospital but is willing to try a laxative. Review of Systems Review of Systems: All systems reviewed & are unremarkable except as noted in HPI and below Exam Narrative: HEENT: EOMI, sclerae nonicteric, pharyngeal mucosa pink and intact NECK: No JVD, adenopathy, or thyromegaly CHEST: Clear to auscultation. Normal effort. HEART: NL S1/S2, regular, no murmur ABDOMEN: BS+, soft, EPIGASTRIC TENDERNESS W/O REBOUND OR GUARDING. NO MASS. EXTREMITIES: No cyanosis, edema, or clubbing NEUROLOGIC: CN intact and symmetric to inspection. MUSCULOSKELETAL: Tone and strength symmetric. PSYCH: Alert. Oriented to person, place, and time. Objective Data Vital Signs Vital Signs: Vital Signs - 24 hr 02/21/24 10:00 02/21/24 12:00 02/21/24 12:00 Temperature 97.6 F Pulse Rate 70 90 79 Respiratory Rate 16 Blood Pressure 118/58 L Pulse Oximetry 98 Oxygen Delivery 02/21/24 14:00 02/21/24 12:00 02/21/24 16:00 Temperature 98.7 F Pulse Rate 82 79 99 Respiratory Rate 18 Blood Pressure 127/67 Pulse Oximetry 100 Oxygen Delivery Room Air 02/21/24 16:00 02/21/24 16:00 02/21/24 18:00 Temperature Pulse Rate 84 85 Respiratory Rate Blood Pressure Pulse Oximetry Oxygen Delivery Room Air 02/21/24 19:44 02/21/24 20:15 02/21/24 20:00 Temperature 98.1 F Pulse Rate 80 80 95 Respiratory Rate 16 16 Blood Pressure 114/66 Pulse Oximetry 96 96 Oxygen Delivery Room Air 02/21/24 22:00 02/21/24 23:54 02/22/24 00:00 Temperature 98.2 F Pulse Rate 102 H 94 94 Respiratory Rate 16 16 Blood Pressure 101/52 L Pulse Oximetry 97 97 Oxygen Delivery Room Air 02/22/24 00:00 02/22/24 02:00 02/22/24 03:50 Temperature Pulse Rate 91 84 84 Respiratory Rate 16 Blood Pressure Pulse Oximetry 97 Oxygen Delivery Room Air 02/22/24 04:00 02/22/24 04:00 02/22/24 06:00 Temperature 98.5 F Pulse Rate 88 85 90 Respiratory Rate 16 Blood Pressure 90/42 L Pulse Oximetry 98 Oxygen Delivery 02/22/24 08:00 02/22/24 08:00 Temperature 98.3 F Pulse Rate 86 85 Respiratory Rate 16 Blood Pressure 82/52 L Pulse Oximetry 93 Oxygen Delivery Intake/Output Intake/Output: Intake & Output 02/19/24 02/20/24 02/21/24 02/22/24 23:59 23:59 23:59 23:59 Intake Total 1000 4087.2 750 300 Output Total 1000 3200 Balance 1000 3087.2 -2450 300 Meds/Results Medications: Active Medications Generic Name Dose Route Start Last Admin Trade Name Freq PRN Reason Stop Dose Admin Acetaminophen 650 mg 02/21/24 15:16 02/21/24 17:07 Acetaminophen 325 Mg Tablet PO 650 mg Q4H PRN Administration Headache Aspirin 81 mg 02/20/24 09:00 02/22/24 09:03 Aspirin 81 Mg Enteric Tablet PO 81 mg QAM RAPHAEL Administration Atorvastatin Calcium 80 mg 02/20/24 21:00 02/21/24 20:09 Atorvastatin 40 Mg Tablet PO 80 mg HS RAPHAEL Administration Dextrose 12.5 gm 02/20/24 00:48 Dextrose 50% 25 Gm/50 Ml Syringe IV PUSH PRN PRN Hypoglycemia Protocol Enoxaparin Sodium 40 mg 02/20/24 09:00 02/22/24 09:02 Enoxaparin 40 Mg/0.4 Ml Syringe SUB-Q 40 mg DAILY RAPHAEL Administration Fenofibrate 145 mg 02/20/24 09:00 02/22/24 09:03 Fenofibrate Nanocrystallized 145 Mg Tablet PO 145 mg DAILY RAPHAEL Administration Glucagon 1 mg 02/20/24 00:48 Glucagon For Inj 1 Mg Vial IM PRN PRN Hypoglycemia Protocol Glucose 15 gm 02/20/24 00:48 Glucose Oral Gel 15 Gm Of Glucse In 37.5 Gm Tube PO PRN PRN Hypoglycemia Protocol Hydromorphone HCl 0.5 mg 02/20/24 02:41 02/22/24 08:46 Hydromorphone Hcl Inj (*Crx) 1 Mg/Ml Syr IV PUSH 0.5 mg Q3H PRN Administration Pain Rated 7-10 Dextrose 1,000 mls @ 100 mls/hr 02/20/24 00:48 Dextrose 5% 1,000 Ml IVPB PRN PRN Hypoglycemia Protocol Levothyroxine Sodium 200 mcg 02/20/24 07:05 02/22/24 05:50 Levothyroxine Sodium 100 Mcg Tablet PO 200 mcg DAILY@0630 RAPHAEL Administration Lorazepam 1 mg 02/20/24 10:23 02/21/24 20:13 Lorazepam (*Crx) 1 Mg Tablet PO 1 mg QHS PRN Administration sleep Metformin HCl 1,000 mg 10/24/24 08:00 02/22/24 09:03 Metformin Hcl 500 Mg Tablet PO 1,000 mg BIDWM RAPHAEL Administration Miscellaneous Information 0 each 02/20/24 00:01 Patient Usually Brings Her Own Creon Since Pharmacy Does Not Carry This Strength. Please S XX 03/21/24 00:00 CLARIFY RAPHAEL Non-Formulary Medication 2 cap 02/20/24 07:00 Ikwvzt-Xfmcrstw-Mjxdnou [Creon] PO 03/21/24 06:59 TIDWMEAL RAPHAEL Ondansetron HCl 4 mg 02/20/24 11:37 02/22/24 08:47 Ondansetron Inj 4 Mg/2 Ml Vial IV PUSH 4 mg Q4H PRN Administration Nausea And Vomiting Pantoprazole Sodium 40 mg 02/20/24 09:00 02/22/24 09:03 Pantoprazole 40 Mg Tablet PO 40 mg Q12HR RAPHAEL Administration Ticagrelor 90 mg 02/20/24 09:00 02/22/24 09:03 Ticagrelor 90 Mg Tablet PO 90 mg Q12HR RAPHAEL Administration Radiology Results: ITS Impressions Abdomen/Pelvis CT 02/19/24 23:28 IMPRESSION: 1. No acute intra-abdominal/pelvic process. Labs Labs: Laboratory Results - last 24 hr 02/21/24 02/21/24 02/21/24 11:15 16:36 19:47 WBC RBC Hgb Hct MCV MCH MCHC RDW Plt Count MPV Sodium Potassium Chloride Carbon Dioxide Anion Gap BUN Creatinine Estim Creat Clear Calc Estimated GFR Glucose POC Capillary Glucose 126 H 106 H 78 Calcium Phosphorus Magnesium Total Bilirubin AST ALT Alkaline Phosphatase Total Protein Albumin Triglycerides 02/22/24 02/22/24 04:41 08:13 WBC 8.3 RBC 4.01 L Hgb 11.7 L Hct 36.0 L MCV 89.8 MCH 29.2 MCHC 32.5 RDW 14.3 Plt Count 221 MPV 8.8 Sodium 139 Potassium 4.3 Chloride 106 Carbon Dioxide 26 Anion Gap 7 BUN 11 D Creatinine 1.00 Estim Creat Clear Calc 67 Estimated GFR 59 Glucose 100 POC Capillary Glucose 109 H Calcium 9.1 Phosphorus 4.8 H Magnesium 1.9 Total Bilirubin 0.4 AST 16 ALT 12 Alkaline Phosphatase 48 Total Protein 6.0 L Albumin 3.8 Triglycerides 605 H
[2024-02-22 11:40] LABS: Glucose Point of Care 124 mg/dl (65-105)
[2024-02-22] MEDS: PROMETHAZINE HCL 25 MG/ML AMPUL 12.5 MG IV PUSH ×2 (12:12→16:24)
--- NOTE | 2024-02-22 13:15 | PC.NURSE ---
This patient, Casandra Jones, was received from [id number] on 02/22/24 at 1315. Patient/family oriented to unit policies and routines
[2024-02-22 17:19] LABS: Glucose Point of Care 145 mg/dl (65-105)
[2024-02-22] MEDS: ACETAMINOPHEN 325 MG TABLET 650 MG PO (18:31)
--- NOTE | 2024-02-22 18:58 | PC.NURSE ---
On 02/22/24, the DIRECTOR OF SOCIAL SERVICES, Puja Domingo, provided care and completed [facility] this patient. I have reviewed the DIRECTOR OF SOCIAL SERVICES's documentation and agree with the findings.
[2024-02-22] MEDS: ATORVASTATIN 40 MG TABLET 80 MG PO (20:13)
[2024-02-22] MEDS: buPROPion HCL SR (12 HR) 150 MG TAB PO (20:14)
[2024-02-22] MEDS: SENNOSIDES 8.6 MG TABLET 17.2 MG PO (20:14)
[2024-02-22 20:22] LABS: Glucose Point of Care 136 mg/dl (65-105)
[2024-02-23 00:15] VITALS: BP 118/60; PULSE 90; RESP 16; TEMP 36.4; O2SAT 95
[2024-02-23] MEDS: HYDROmorphone HCL INJ (*CRX) 1 MG/ML SYR 0.5 MG IV PUSH ×6 (00:24→21:15)
[2024-02-23 05:11] VITALS: BP 109/94; PULSE 96; RESP 20; TEMP 36.5; O2SAT 97
[2024-02-23] MEDS: LEVOTHYROXINE SODIUM 100 MCG TABLET 200 MCG PO (05:23)
[2024-02-23 06:35] LABS: Hematocrit 35.6 % (37.0-47.0); Hemoglobin 11.5 g/dL (12.0-15.0); Mean Corpuscular HGB Conc 32.3 g/dl (32-36); Mean Corpuscular Volume 89.9 fl (80-100); Platelet Count Result 185 k/mm3 (150-375); Red Blood Count 3.96 M/mm3 (4.2-5.4); Red Cell Distribution Width 14.4 % (11.5-14.5); White Blood Count 6.1 K/mm3 (4.5-10.0)
[2024-02-23 06:47] LABS: Alanine Aminotransferase 14 U/L (6-35); Albumin Level 3.9 g/dL (3.5-5.1); Alkaline Phosphatase 50 U/L (38-126); Anion Gap 8 mmol/L (4-12); Aspartate Amino Transferase 20 U/L (14-36); Bilirubin,Total 0.6 mg/dL (0.2-1.3); Blood Urea Nitrogen 15 mg/dL (7-17); Calcium 9.1 mg/dL (8.4-10.2); Carbon Dioxide 25 mmol/L (22-30); Chloride 108 mmol/L (98-107); Estimated CRCL calculation 83 ml/min; Estimated Glomerular Filt Rate > 60; Glucose 109 mg/dL (65-110); Magnesium 1.5 mg/dL (1.6-2.3); Phosphorus 4.4 mg/dL (2.5-4.5); Potassium 4.2 mmol/L (3.4-5.0); Sodium 141 mmol/L (137-145)
[2024-02-23 06:49] LABS: Triglycerides 498 mg/dL (<150)
[2024-02-23 07:55] LABS: Glucose Point of Care 118 mg/dl (65-105)
[2024-02-23 07:57] VITALS: BP 96/57; PULSE 87; RESP 14; TEMP 36.6; O2SAT 96
[2024-02-23] MEDS: SODIUM CHLORIDE 0.9% INJ 10 ML ×2 (08:08)
[2024-02-23] MEDS: MAGNESIUM SULF 2 GM/WATER 50ML 2 GM/50 ML BAG IVPB (08:10)
[2024-02-23] MEDS: PROMETHAZINE HCL 25 MG/ML AMPUL 12.5 MG IV PUSH ×3 (08:12→21:13)
[2024-02-23] MEDS: PANTOPRAZOLE 40 MG TABLET PO ×2 (08:23→21:11)
[2024-02-23] MEDS: FENOFIBRATE NANOCRYSTALLIZED 145 MG TABLET PO (08:23)
[2024-02-23] MEDS: CITALOPRAM HYDROBROMIDE 20 MG TABLET 40 MG PO (08:23)
[2024-02-23] MEDS: metFORMIN HCL 500 MG TABLET 1000 MG PO ×2 (08:23→16:01)
[2024-02-23] MEDS: ASPIRIN 81 MG ENTERIC TABLET PO (08:23)
[2024-02-23] MEDS: TICAGRELOR 90 MG TABLET PO ×2 (08:23→21:12)
[2024-02-23] MEDS: ENOXAPARIN 40 MG/0.4 ML SYRINGE SUB-Q (08:28)
[2024-02-23 11:40] LABS: Glucose Point of Care 117 mg/dl (65-105)
[2024-02-23 12:00] VITALS: BP 102/66; PULSE 84; RESP 14; TEMP 36.4; O2SAT 96
--- NOTE | 2024-02-23 14:08 | PM.IMPN ---
Progress Note: A&P Assessment and Plan (1) Abdominal pain: Code(s): R10.9 - Unspecified abdominal pain Status: Acute Assessment and Plan: Secondary to chronic pancreatitis and hypertriglyceridemia. Lipase level is normal at this time Patient is being treated with insulin infusion and IV fluids for hypertriglyceridemia. Nephrology consulted and plasmapheresis done 02/19. Monitor triglyceride levels. Advance diet as tolerated. Creon with meals Analgesics, antiemetics, laxatives ordered. 02/21 Triglycerides 605 mg/dl. 02/22 Trigs 498 (2) Chronic pancreatitis: Code(s): K86.1 - Other chronic pancreatitis Status: Acute Assessment and Plan: See above (3) Hypertriglyceridemia: Code(s): E78.1 - Pure hyperglyceridemia Status: Chronic Assessment and Plan: Continue statin and fenofibrate. (4) Insulin dependent diabetes mellitus: Status: Chronic Assessment and Plan: 02/21 FBS 100, 02/22 109 Continue metformin (5) GERD (gastroesophageal reflux disease): Qualifiers: Esophagitis presence: esophagitis presence not specified Qualified Code(s): K21.9 - Gastro-esophageal reflux disease without esophagitis Code(s): K21.9 - Gastro-esophageal reflux disease without esophagitis Status: Acute Assessment and Plan: Continue PPI (6) CAD (coronary artery disease): Code(s): I25.10 - Atherosclerotic heart disease of [place] coronary artery without angina pectoris Status: Chronic Assessment and Plan: Continue aspirin Brilinta statin Patient is not on Justin/ARB or beta-lelo as an outpatient due to chronic low blood pressures Subjective Date/time seen: 02/23/24 14:08 Interval history: Only complaint today is nausea with some lightheadedness. No chest pain or shortness of breath. Still no bowel movement although she has passed flatus. Review of Systems Review of Systems: All systems reviewed & are unremarkable except as noted in HPI and below Exam Narrative: HEENT: EOMI, sclerae nonicteric, pharyngeal mucosa pink and intact NECK: No JVD, adenopathy, or thyromegaly CHEST: Clear to auscultation. Normal effort. HEART: NL S1/S2, regular, no murmur ABDOMEN: BS+, soft, nontender, no mass. EXTREMITIES: No cyanosis, edema, or clubbing NEUROLOGIC: CN intact and symmetric to inspection. MUSCULOSKELETAL: Tone and strength symmetric. PSYCH: Alert. Oriented to person, place, and time. Objective Data Vital Signs Vital Signs: Vital Signs - 24 hr 02/22/24 16:00 02/22/24 19:44 02/22/24 20:00 Temperature 97.6 F 98.4 F Pulse Rate 93 85 Respiratory Rate 14 18 Blood Pressure 96/60 L 108/60 Pulse Oximetry 93 96 Oxygen Delivery Room Air 02/23/24 00:15 02/23/24 05:11 02/23/24 07:57 Temperature 97.5 F L 97.7 F 97.9 F Pulse Rate 90 96 87 Respiratory Rate 16 20 14 Blood Pressure 118/60 109/94 H 96/57 L Pulse Oximetry 95 97 96 Oxygen Delivery 02/23/24 08:05 02/23/24 12:00 Temperature 97.5 F L Pulse Rate 84 Respiratory Rate 14 Blood Pressure 102/66 Pulse Oximetry 96 Oxygen Delivery Room Air Intake/Output Intake/Output: Intake & Output 02/20/24 02/21/24 02/22/24 02/23/24 23:59 23:59 23:59 23:59 Intake Total 4087.2 750 540 620 Output Total 1000 3200 Balance 3087.2 -2450 540 620 Meds/Results Medications: Active Medications Generic Name Dose Route Start Last Admin Trade Name Freq PRN Reason Stop Dose Admin Acetaminophen 650 mg 02/21/24 15:16 02/22/24 18:31 Acetaminophen 325 Mg Tablet PO 650 mg Q4H PRN Administration Headache Aspirin 81 mg 02/20/24 09:00 02/23/24 08:23 Aspirin 81 Mg Enteric Tablet PO 81 mg QAM RAPHAEL Administration Atorvastatin Calcium 80 mg 02/20/24 21:00 02/22/24 20:13 Atorvastatin 40 Mg Tablet PO 80 mg HS RAPHAEL Administration Bupropion HCl 150 mg 02/22/24 21:00 02/22/24 20:14 Bupropion Hcl Sr (12 Hr) 150 Mg Tab PO 150 mg HS RAPHAEL Administration Citalopram Hydrobromide 40 mg 02/23/24 09:00 02/23/24 08:23 Citalopram Hydrobromide 20 Mg Tablet PO 40 mg DAILY RAPHAEL Administration Dextrose 12.5 gm 02/20/24 00:48 Dextrose 50% 25 Gm/50 Ml Syringe IV PUSH PRN PRN Hypoglycemia Protocol Enoxaparin Sodium 40 mg 02/20/24 09:00 02/23/24 08:28 Enoxaparin 40 Mg/0.4 Ml Syringe SUB-Q 40 mg DAILY RAPHAEL Administration Fenofibrate 145 mg 02/20/24 09:00 02/23/24 08:23 Fenofibrate Nanocrystallized 145 Mg Tablet PO 145 mg DAILY RAPHAEL Administration Glucagon 1 mg 02/20/24 00:48 Glucagon For Inj 1 Mg Vial IM PRN PRN Hypoglycemia Protocol Glucose 15 gm 02/20/24 00:48 Glucose Oral Gel 15 Gm Of Glucse In 37.5 Gm Tube PO PRN PRN Hypoglycemia Protocol Hydromorphone HCl 0.5 mg 02/20/24 02:41 02/23/24 08:08 Hydromorphone Hcl Inj (*Crx) 1 Mg/Ml Syr IV PUSH 0.5 mg Q3H PRN Administration Pain Rated 7-10 Dextrose 1,000 mls @ 100 mls/hr 02/20/24 00:48 Dextrose 5% 1,000 Ml IVPB PRN PRN Hypoglycemia Protocol Levothyroxine Sodium 200 mcg 02/20/24 07:05 02/23/24 05:23 Levothyroxine Sodium 100 Mcg Tablet PO 200 mcg DAILY@0630 RAPHAEL Administration Lorazepam 1 mg 02/20/24 10:23 02/21/24 20:13 Lorazepam (*Crx) 1 Mg Tablet PO 1 mg QHS PRN Administration sleep Metformin HCl 1,000 mg 02/20/24 08:00 02/23/24 08:23 Metformin Hcl 500 Mg Tablet PO 1,000 mg BIDWM RAPHAEL Administration Miscellaneous Information 0 each 02/20/24 00:01 Patient Usually Brings Her Own Creon Since Pharmacy Does Not Carry This Strength. Please S XX 03/21/24 00:00 CLARIFY RAPHAEL Non-Formulary Medication 2 cap 02/20/24 07:00 [id number] [Creon] PO 03/21/24 06:59 TIDWMEAL RAPHAEL Pantoprazole Sodium 40 mg 02/20/24 09:00 02/23/24 08:23 Pantoprazole 40 Mg Tablet PO 40 mg Q12HR RAPHAEL Administration Promethazine HCl 12.5 mg 02/22/24 10:05 02/23/24 08:12 Promethazine Hcl 25 Mg/Ml Ampul IV PUSH 12.5 mg Q4H PRN Administration Nausea And Vomiting Senna 17.2 mg 02/22/24 21:00 02/22/24 20:14 Sennosides 8.6 Mg Tablet PO 17.2 mg HS RAPHAEL Administration Ticagrelor 90 mg 02/20/24 09:00 02/23/24 08:23 Ticagrelor 90 Mg Tablet PO 90 mg Q12HR RAPHAEL Administration Radiology Results: ITS Impressions Abdomen/Pelvis CT 02/19/24 23:28 IMPRESSION: 1. No acute intra-abdominal/pelvic process. Labs Labs: Laboratory Results - last 24 hr 02/22/24 02/22/24 02/23/24 16:46 19:46 06:18 WBC 6.1 RBC 3.96 L Hgb 11.5 L Hct 35.6 L MCV 89.9 MCH 29.0 MCHC 32.3 RDW 14.4 Plt Count 185 MPV 9.0 Sodium 141 Potassium 4.2 Chloride 108 H Carbon Dioxide 25 Anion Gap 8 BUN 15 Creatinine 0.80 Estim Creat Clear Calc 83 Estimated GFR > 60 Glucose 109 POC Capillary Glucose 145 H 136 H Calcium 9.1 Phosphorus 4.4 Magnesium 1.5 L Total Bilirubin 0.6 AST 20 ALT 14 Alkaline Phosphatase 50 Total Protein 6.0 L Albumin 3.9 Triglycerides 498 H 02/23/24 02/23/24 02/23/24 06:18 07:43 11:31 WBC RBC Hgb Hct MCV MCH MCHC RDW Plt Count MPV Sodium Potassium Chloride Carbon Dioxide Anion Gap BUN Creatinine Estim Creat Clear Calc Estimated GFR Glucose POC Capillary Glucose 118 H 117 H Calcium Phosphorus Magnesium Total Bilirubin AST ALT Alkaline Phosphatase Total Protein Albumin Triglycerides Cancelled
[2024-02-23 16:00] VITALS: BP 117/62; PULSE 91; RESP 16; TEMP 36.6; O2SAT 95
[2024-02-23 16:40] LABS: Glucose Point of Care 143 mg/dl (65-105)
--- NOTE | 2024-02-23 17:39 | PC.NURSE ---
On 02/23/24, the CORK INSULATION SETTER, Puja Domingo, provided care and completed [employer] documentation on this patient. I have reviewed the CORK INSULATION SETTER's documentation and agree with the findings.
[2024-02-23 20:11] LABS: Glucose Point of Care 133 mg/dl (65-105)
[2024-02-23 20:29] VITALS: BP 125/57; PULSE 98; RESP 17; TEMP 36.8; O2SAT 95
[2024-02-23] MEDS: SENNOSIDES 8.6 MG TABLET 17.2 MG PO (21:11)
[2024-02-23] MEDS: ATORVASTATIN 40 MG TABLET 80 MG PO (21:12)
[2024-02-23] MEDS: buPROPion HCL SR (12 HR) 150 MG TAB PO (21:12)
[2024-02-23] MEDS: LORazepam (*CRX) 1 MG TABLET PO (21:12)
--- NOTE | 2024-02-23 21:37 | PC.NURSE ---
Pt stated that she forgot to have someone bring in her creon but then stated that she didn't have any at home to be brought in and didn't think it mattered since she hasn't been eating thus didn't need the med anyway. Pharmacy made aware.
[2024-02-24] MEDS: HYDROmorphone HCL INJ (*CRX) 1 MG/ML SYR 0.5 MG IV PUSH ×4 (01:05→21:36)
[2024-02-24 05:20] VITALS: BP 125/71; PULSE 86; RESP 18; TEMP 36.7; O2SAT 96
[2024-02-24] MEDS: LEVOTHYROXINE SODIUM 100 MCG TABLET 200 MCG PO (05:21)
[2024-02-24 06:19] LABS: Glucose Point of Care 130 mg/dl (65-105)
[2024-02-24 06:50] LABS: Hematocrit 35.4 % (37.0-47.0); Hemoglobin 11.5 g/dL (12.0-15.0); Mean Corpuscular HGB Conc 32.5 g/dl (32-36); Mean Corpuscular Hemoglobin 29.1 pg (26-34); Mean Corpuscular Volume 89.6 fl (80-100); Mean Platelet Volume 9.2 fl (7.4-10.4); Platelet Count Result 207 k/mm3 (150-375); Red Blood Count 3.95 M/mm3 (4.2-5.4); Red Cell Distribution Width 14.3 % (11.5-14.5); White Blood Count 6.3 K/mm3 (4.5-10.0)
[2024-02-24 07:03] LABS: Alanine Aminotransferase 19 U/L (6-35); Albumin Level 4.2 g/dL (3.5-5.1); Alkaline Phosphatase 55 U/L (38-126); Anion Gap 7 mmol/L (4-12); Aspartate Amino Transferase 26 U/L (14-36); Bilirubin,Total 0.6 mg/dL (0.2-1.3); Blood Urea Nitrogen 13 mg/dL (7-17); Calcium 8.8 mg/dL (8.4-10.2); Carbon Dioxide 25 mmol/L (22-30); Chloride 107 mmol/L (98-107); Estimated CRCL calculation 108 ml/min; Estimated Glomerular Filt Rate > 60; Glucose 109 mg/dL (65-110); Magnesium 1.4 mg/dL (1.6-2.3); Phosphorus 3.6 mg/dL (2.5-4.5); Potassium 3.9 mmol/L (3.4-5.0); Sodium 139 mmol/L (137-145)
[2024-02-24 07:34] LABS: Glucose Point of Care 130 mg/dl (65-105)
[2024-02-24] MEDS: metFORMIN HCL 500 MG TABLET 1000 MG PO ×2 (08:45→17:37)
[2024-02-24] MEDS: LIPASE/AMYLASE/PROTEASE 12,000 UNITS CAP 6 CAP PO ×2 (08:45→11:10)
[2024-02-24] MEDS: FENOFIBRATE NANOCRYSTALLIZED 145 MG TABLET PO (08:45)
[2024-02-24] MEDS: ASPIRIN 81 MG ENTERIC TABLET PO (08:45)
[2024-02-24] MEDS: TICAGRELOR 90 MG TABLET PO ×2 (08:45→21:37)
[2024-02-24] MEDS: PANTOPRAZOLE 40 MG TABLET PO ×2 (08:45→21:37)
[2024-02-24] MEDS: CITALOPRAM HYDROBROMIDE 20 MG TABLET 40 MG PO (08:45)
[2024-02-24] MEDS: ENOXAPARIN 40 MG/0.4 ML SYRINGE SUB-Q (08:45)
--- NOTE | 2024-02-24 09:24 | P.PNIM_ITS ---
Progress Note: A&P Assessment and Plan (1) Abdominal pain: Code(s): R10.9 - Unspecified abdominal pain Status: Acute (2) Nausea & vomiting: Code(s): R11.2 - Nausea with vomiting, unspecified Status: Acute (3) Hypertriglyceridemia: Code(s): E78.1 - Pure hyperglyceridemia Status: Chronic Plan (1) Abdominal pain: Code(s): R10.9 - Unspecified abdominal pain Status: Acute Assessment and Plan: Secondary to chronic pancreatitis and hypertriglyceridemia. Lipase level is normal at this time Patient is being treated with insulin infusion and IV fluids for hypertriglyceridemia. Nephrology consulted and plasmapheresis done 02/19. Monitor triglyceride levels. Advance diet as tolerated. Creon with meals Analgesics, antiemetics, laxatives ordered. 02/21 Triglycerides 605 mg/dl. 02/22 Trigs 498 Follow-up triglyceride today pt is on statin 80 mg q.h.s., fenofibrate 145 mg daily p.o. add [place] 3 polyunsaturated fatty acid 2 g b.i.d.but pt declines it (2) Chronic pancreatitis: Code(s): K86.1 - Other chronic pancreatitis Status: Acute Assessment and Plan: See above (3) Hypertriglyceridemia: Code(s): E78.1 - Pure hyperglyceridemia Status: Chronic Assessment and Plan: Continue statin and fenofibrate. (4) Insulin dependent diabetes mellitus: Status: Chronic Assessment and Plan: 02/21 FBS 100, 02/22 109 Continue metformin (5) GERD (gastroesophageal reflux disease): Qualifiers: Esophagitis presence: esophagitis presence not specified Qualified Code(s): K21.9 - Gastro-esophageal reflux disease without esophagitis Code(s): K21.9 - Gastro-esophageal reflux disease without esophagitis Status: Acute Assessment and Plan: Continue PPI (6) CAD (coronary artery disease): Code(s): I25.10 - Atherosclerotic heart disease of [place] coronary artery without angina pectoris Status: Chronic Assessment and Plan: Continue aspirin Brilinta statin Patient is not on Justin/ARB or beta-lelo as an outpatient due to chronic low blood pressures Discharge patient in 1-2 days if patient continue to improve and tolerate diet Subjective Date/time seen: 02/24/24 09:24 Interval history: I saw and examined the patient today, patient still has abdomen pain, poor intake. S nausea denies vomiting. Patient denies headache, chest pain, shortness a or breath, patient is afebrile, blood pressure stable overnight, no O2 desaturation. Labs reviewed, Exam Narrative: GENERAL: in no acute distress. Well-nourished. - EYES: EOMI. Anicteric. - HENT: Moist mucous membranes. - LUNGS: Clear to auscultation bilateral ly, no wheezing, rhonchi, or rales. - CARDIOVASCULAR: Regular rate and rhyth m. No murmur. No JVD. - ABDOMEN: Soft, mild diffuse abdominal tender and non-distended. No palpable masses. - EXTREMITIES: No edema. Peripheral puls es 2+. Non-tender. - NEUROLOGIC: No focal neurological defi cits. CN II-XII grossly intact. - PSYCHIATRIC: Awake, Alert and oriented x 3. Appropriate mood and affect. - SKIN: No rashes or lesions. Warm. - LYMPH: No cervical lymphadenopathy. Objective Data Vital Signs Vital Signs: Vital Signs - 24 hr 02/23/24 12:00 02/23/24 16:00 02/23/24 20:29 Temperature 97.5 F L 97.9 F 98.3 F Pulse Rate 84 91 98 Respiratory Rate 14 16 17 Blood Pressure 102/66 117/62 125/57 L Pulse Oximetry 96 95 95 Oxygen Delivery 02/23/24 20:00 02/24/24 05:20 Temperature 98.0 F Pulse Rate 86 Respiratory Rate 18 Blood Pressure 125/71 Pulse Oximetry 96 Oxygen Delivery Room Air Intake/Output Intake/Output: Intake & Output 02/21/24 02/22/24 02/23/24 02/24/24 23:59 23:59 23:59 23:59 Intake Total 750 540 620 270 Output Total 3200 Balance -2450 540 620 270 Meds/Results Medications: Active Medications Generic Name Dose Route Start Last Admin Trade Name Freq PRN Reason Stop Dose Admin Acetaminophen 650 mg 02/21/24 15:16 02/22/24 18:31 Acetaminophen 325 Mg Tablet PO 650 mg Q4H PRN Administration Headache Lipase/Protease/Amylase 6 cap 02/24/24 08:00 02/24/24 08:45 Lipase/Amylase/Protease 12,000 Units Cap PO 6 cap TIDWM RAPHAEL Administration Lipase/Protease/Amylase 2 cap 02/23/24 21:47 Lipase/Amylase/Protease 12,000 Units Cap PO PRN PRN SNACKS Aspirin 81 mg 02/20/24 09:00 02/24/24 08:45 Aspirin 81 Mg Enteric Tablet PO 81 mg QAM RAPHAEL Administration Atorvastatin Calcium 80 mg 02/20/24 21:00 02/23/24 21:12 Atorvastatin 40 Mg Tablet PO 80 mg HS RAPHAEL Administration Bupropion HCl 150 mg 02/22/24 21:00 02/23/24 21:12 Bupropion Hcl Sr (12 Hr) 150 Mg Tab PO 150 mg HS RAPHAEL Administration Citalopram Hydrobromide 40 mg 02/23/24 09:00 02/24/24 08:45 Citalopram Hydrobromide 20 Mg Tablet PO 40 mg DAILY RAPHAEL Administration Dextrose 12.5 gm 02/20/24 00:48 Dextrose 50% 25 Gm/50 Ml Syringe IV PUSH PRN PRN Hypoglycemia Protocol Enoxaparin Sodium 40 mg 02/20/24 09:00 02/24/24 08:45 Enoxaparin 40 Mg/0.4 Ml Syringe SUB-Q 40 mg DAILY RAPHAEL Administration Fenofibrate 145 mg 02/20/24 09:00 02/24/24 08:45 Fenofibrate Nanocrystallized 145 Mg Tablet PO 145 mg DAILY RAPHAEL Administration Glucagon 1 mg 02/20/24 00:48 Glucagon For Inj 1 Mg Vial IM PRN PRN Hypoglycemia Protocol Glucose 15 gm 02/20/24 00:48 Glucose Oral Gel 15 Gm Of Glucse In 37.5 Gm Tube PO PRN PRN Hypoglycemia Protocol Hydromorphone HCl 0.5 mg 02/20/24 02:41 02/24/24 06:14 Hydromorphone Hcl Inj (*Crx) 1 Mg/Ml Syr IV PUSH 0.5 mg Q3H PRN Administration Pain Rated 7-10 Dextrose 1,000 mls @ 100 mls/hr 02/20/24 00:48 Dextrose 5% 1,000 Ml IVPB PRN PRN Hypoglycemia Protocol Levothyroxine Sodium 200 mcg 02/20/24 07:05 02/24/24 05:21 Levothyroxine Sodium 100 Mcg Tablet PO 200 mcg DAILY@0630 RAPHAEL Administration Lorazepam 1 mg 02/20/24 10:23 02/23/24 21:12 Lorazepam (*Crx) 1 Mg Tablet PO 1 mg QHS PRN Administration sleep Metformin HCl 1,000 mg 10/24/24 08:00 02/24/24 08:45 Metformin Hcl 500 Mg Tablet PO 1,000 mg BIDWM RAPHAEL Administration Pantoprazole Sodium 40 mg 02/20/24 09:00 02/24/24 08:45 Pantoprazole 40 Mg Tablet PO 40 mg Q12HR RAPHAEL Administration Promethazine HCl 12.5 mg 02/22/24 10:05 02/23/24 21:13 Promethazine Hcl 25 Mg/Ml Ampul IV PUSH 12.5 mg Q4H PRN Administration Nausea And Vomiting Senna 17.2 mg 02/22/24 21:00 02/23/24 21:11 Sennosides 8.6 Mg Tablet PO 17.2 mg HS RAPHAEL Administration Ticagrelor 90 mg 02/20/24 09:00 02/24/24 08:45 Ticagrelor 90 Mg Tablet PO 90 mg Q12HR RAPHAEL Administration Radiology Results: ITS Impressions Abdomen/Pelvis CT 02/19/24 23:28 IMPRESSION: 1. No acute intra-abdominal/pelvic process. Labs Labs: Laboratory Results - last 24 hr 02/23/24 02/23/24 02/23/24 11:31 16:36 20:03 WBC RBC Hgb Hct MCV MCH MCHC RDW Plt Count MPV Sodium Potassium Chloride Carbon Dioxide Anion Gap BUN Creatinine Estim Creat Clear Calc Estimated GFR Glucose POC Capillary Glucose 117 H 143 H 133 H Calcium Phosphorus Magnesium Total Bilirubin AST ALT Alkaline Phosphatase Total Protein Albumin 02/24/24 02/24/24 02/24/24 06:16 06:33 07:31 WBC 6.3 RBC 3.95 L Hgb 11.5 L Hct 35.4 L MCV 89.6 MCH 29.1 MCHC 32.5 RDW 14.3 Plt Count 207 MPV 9.2 Sodium 139 Potassium 3.9 Chloride 107 Carbon Dioxide 25 Anion Gap 7 BUN 13 Creatinine 0.60 L Estim Creat Clear Calc 108 Estimated GFR > 60 Glucose 109 POC Capillary Glucose 130 H 130 H Calcium 8.8 Phosphorus 3.6 Magnesium 1.4 L Total Bilirubin 0.6 AST 26 ALT 19 Alkaline Phosphatase 55 Total Protein 7.0 Albumin 4.2
[2024-02-24 10:26] LABS: Triglycerides 520 mg/dL (<150)
[2024-02-24] MEDS: PROMETHAZINE HCL 25 MG/ML AMPUL 12.5 MG IV PUSH ×2 (11:10→21:36)
[2024-02-24 11:34] LABS: Glucose Point of Care 137 mg/dl (65-105)
[2024-02-24 12:05] VITALS: BMI 33.0
[2024-02-24 14:00] VITALS: BP 122/71; PULSE 96; RESP 18; TEMP 36.5; O2SAT 100
[2024-02-24 16:47] LABS: Glucose Point of Care 162 mg/dl (65-105)
[2024-02-24] MEDS: OMEGA 3 POLYUNSAT FATTY ACIDS 1 GM CAP 2 GM PO (17:37)
--- NOTE | 2024-02-24 18:03 | PC.NURSE ---
Pt does not want to take her Creon unless she's eating a big meaty meal . Also states she is not supposed to be taking [place] 3 per an MD at the [facility] because it does more harm than good.
[2024-02-24 20:19] LABS: Glucose Point of Care 174 mg/dl (65-105)
[2024-02-24 20:25] VITALS: BP 148/71; PULSE 86; RESP 17; TEMP 36.4; O2SAT 98
[2024-02-24] MEDS: buPROPion HCL SR (12 HR) 150 MG TAB PO (21:36)
[2024-02-24] MEDS: ATORVASTATIN 40 MG TABLET 80 MG PO (21:37)
[2024-02-25 04:56] VITALS: BP 133/72; PULSE 85; RESP 17; TEMP 37; O2SAT 96
[2024-02-25] MEDS: LEVOTHYROXINE SODIUM 100 MCG TABLET 200 MCG PO (06:10)
[2024-02-25 08:01] LABS: Hematocrit 37.2 % (37.0-47.0); Hemoglobin 12.5 g/dL (12.0-15.0); Mean Corpuscular HGB Conc 33.6 g/dl (32-36); Mean Corpuscular Hemoglobin 29.3 pg (26-34); Mean Corpuscular Volume 87.3 fl (80-100); Mean Platelet Volume 9.3 fl (7.4-10.4); Platelet Count Result 206 k/mm3 (150-375); Red Blood Count 4.26 M/mm3 (4.2-5.4); Red Cell Distribution Width 14.1 % (11.5-14.5); White Blood Count 6.9 K/mm3 (4.5-10.0)
[2024-02-25] MEDS: ASPIRIN 81 MG ENTERIC TABLET PO (08:04)
[2024-02-25] MEDS: CITALOPRAM HYDROBROMIDE 20 MG TABLET 40 MG PO (08:04)
[2024-02-25] MEDS: TICAGRELOR 90 MG TABLET PO ×2 (08:04→21:34)
[2024-02-25] MEDS: FENOFIBRATE NANOCRYSTALLIZED 145 MG TABLET PO (08:04)
[2024-02-25] MEDS: PANTOPRAZOLE 40 MG TABLET PO ×2 (08:04→21:34)
[2024-02-25] MEDS: ENOXAPARIN 40 MG/0.4 ML SYRINGE SUB-Q (08:04)
[2024-02-25 08:06] LABS: Alanine Aminotransferase 26 U/L (6-35); Albumin Level 4.3 g/dL (3.5-5.1); Alkaline Phosphatase 57 U/L (38-126); Anion Gap 11 mmol/L (4-12); Aspartate Amino Transferase 34 U/L (14-36); Bilirubin,Total 0.8 mg/dL (0.2-1.3); Blood Urea Nitrogen 9 mg/dL (7-17); Carbon Dioxide 25 mmol/L (22-30); Chloride 102 mmol/L (98-107); Estimated CRCL calculation 108 ml/min; Estimated Glomerular Filt Rate > 60; Glucose 145 mg/dL (65-110); Magnesium 1.2 mg/dL (1.6-2.3); Phosphorus 3.7 mg/dL (2.5-4.5); Potassium 3.6 mmol/L (3.4-5.0); Sodium 138 mmol/L (137-145)
[2024-02-25 08:06] LABS: Glucose Point of Care 168 mg/dl (65-105)
[2024-02-25] MEDS: metFORMIN HCL 500 MG TABLET 1000 MG PO ×2 (08:08→17:24)
[2024-02-25] MEDS: HYDROmorphone HCL INJ (*CRX) 1 MG/ML SYR 0.5 MG IV PUSH (08:08)
--- NOTE | 2024-02-25 08:10 | PC.NURSE ---
Patient refused Creon with AM medication pass. Pt educated on the purpose and benefits of medication. Patient continues to refused. Pt A&Ox3. Attempted to notify provider. LM.
[2024-02-25 09:05] LABS: Cholesterol 133 mg/dL (0-200)
[2024-02-25 09:07] LABS: LDL Cholesterol Direct < 30 mg/dL; Triglycerides 708 mg/dL (<150)
[2024-02-25] MEDS: LIPASE/AMYLASE/PROTEASE 12,000 UNITS CAP 6 CAP PO ×2 (11:15→17:24)
[2024-02-25] MEDS: HYDROcodone/acetaminophen (*CRX) 10-325 MG TABLET 1 TAB PO ×3 (11:15→21:33)
[2024-02-25] MEDS: ONDANSETRON INJ 4 MG/2 ML VIAL IV PUSH ×2 (11:16→21:50)
[2024-02-25] MEDS: MAGNESIUM SULF 2 GM/WATER 50ML 2 GM/50 ML BAG IVPB (11:26)
[2024-02-25 11:51] LABS: Glucose Point of Care 159 mg/dl (65-105)
[2024-02-25 14:00] VITALS: BP 113/63; PULSE 97; RESP 20; TEMP 36; O2SAT 98
--- NOTE | 2024-02-25 14:32 | P.PNIM_ITS ---
Progress Note: A&P Assessment and Plan (1) Abdominal pain: Code(s): R10.9 - Unspecified abdominal pain Status: Acute (2) Nausea & vomiting: Code(s): R11.2 - Nausea with vomiting, unspecified Status: Acute (3) Hypertriglyceridemia: Code(s): E78.1 - Pure hyperglyceridemia Status: Chronic Plan (1) Abdominal pain: Code(s): R10.9 - Unspecified abdominal pain Status: Acute Assessment and Plan: Secondary to chronic pancreatitis and hypertriglyceridemia. Lipase level is normal at this time Patient is being treated with insulin infusion and IV fluids for hypertriglyceridemia. Nephrology consulted and plasmapheresis done 02/19. Monitor triglyceride levels. Advance diet as tolerated. Creon with meals Continue PRN [place] and titrate off Dilaudid, continue Zofran PRN, and Compazine 02/21 Triglycerides 605 mg/dl. 02/22 Trigs 498 02/24 Trigs 708 pt is on statin 80 mg q.h.s., fenofibrate 145 mg daily p.o. add [place] 3 polyunsaturated fatty acid 2 g b.i.d.but pt declines it (2) Chronic pancreatitis: Code(s): K86.1 - Other chronic pancreatitis Status: Acute Assessment and Plan: See above (3) Hypertriglyceridemia: Code(s): E78.1 - Pure hyperglyceridemia Status: Chronic Assessment and Plan: Continue statin and fenofibrate. (4) Insulin dependent diabetes mellitus: Status: Chronic Assessment and Plan: 02/21 FBS 100, 02/22 109 Continue metformin (5) GERD (gastroesophageal reflux disease): Qualifiers: Esophagitis presence: esophagitis presence not specified Qualified Code(s): K21.9 - Gastro-esophageal reflux disease without esophagitis Code(s): K21.9 - Gastro-esophageal reflux disease without esophagitis Status: Acute Assessment and Plan: Continue PPI (6) CAD (coronary artery disease): Code(s): I25.10 - Atherosclerotic heart disease of [place] coronary artery without angina pectoris Status: Chronic Assessment and Plan: Continue aspirin Brilinta statin Patient is not on Justin/ARB or beta-lelo as an outpatient due to chronic low blood pressures DVT prophylaxis on Sq Lovenox possible discharge tomorrow Subjective Date/time seen: 02/25/24 14:32 Interval history: patient still complained of abd pain, although she mentioned that she has chronic pain, however she reported she is so nauseous that she is not able to eat and noted that Zofran helped her more than Promethazine. Review of Systems Review of Systems: ABDOMINAL PAIN, BODY ACHES All systems reviewed & are unremarkable except as noted in HPI and below Exam Narrative: GENERAL: in no acute distress. Well-nourished. - EYES: EOMI. Anicteric. - HENT: Moist mucous membranes. - LUNGS: Clear to auscultation bilateral ly, no wheezing, rhonchi, or rales. - CARDIOVASCULAR: Regular rate and rhyth m. No murmur. No JVD. - ABDOMEN: Soft, mild diffuse abdominal tender and non-distended. No palpable masses. - EXTREMITIES: No edema. Peripheral puls es 2+. Non-tender. - NEUROLOGIC: No focal neurological defi cits. CN II-XII grossly intact. - PSYCHIATRIC: Awake, Alert and oriented x 3. Appropriate mood and affect. - SKIN: No rashes or lesions. Warm. - LYMPH: No cervical lymphadenopathy. Const: General: comfortable, no acute distress, well developed, alert, awake and average body habitus Nutritional Appearance: average body habitus Orientation/consciousness: patient oriented x3 HENMT: Head: normal to inspection, normocephalic and atraumatic Ears: hearing grossly normal bilaterally Face/Nose/Sinus: normal facial exam Face and sinus: normal facial exam Eyes: General: appearance normal, both eyes and all related structures Pupils: Equal, round and reactive pupils present EOM: EOMs intact bilaterally Neck: Neck: full ROM, no lymphadenopathy and no JVD Thyroid: thyroid normal Lymphatic: no lymphadenopathy noted Resp: Effort & Inspection: normal respiratory effort and able to speak in complete sentences Auscultation: clear to auscultation bilaterally Cardio: Jugular venous distension: no JVD Rate: regular rate Rhythm: regular rhythm Heart sounds: S1 normal heart sound present and S2 normal heart sound present GI: Inspection: obesity : General: Yes deferred Skin: Rashes: no rashes Wounds: no wounds Neuro: General: patient oriented x3 and CN's II-XI intact bilaterally Cranial nerves: Yes CN's II-XII intact bilaterally and Yes Equal, round and reactive pupils present Cognition (Neuro): normal cognition Speech: normal speech Gait exam (Neuro): Normal gait present Motor exam (neuro): 5/5 motor strength present throughout Extrem: General: normal to inspection, full ROM, no joint enlargement and no pedal edema Objective Data Vital Signs Vital Signs: Vital Signs - 24 hr 02/24/24 20:25 02/24/24 20:00 02/25/24 04:56 Temperature 97.6 F 98.6 F Pulse Rate 86 85 Respiratory Rate 17 17 Blood Pressure 148/71 H 133/72 Pulse Oximetry 98 96 Oxygen Delivery Room Air 02/25/24 08:05 Temperature Pulse Rate Respiratory Rate Blood Pressure Pulse Oximetry Oxygen Delivery Room Air Intake/Output Intake/Output: Intake & Output 02/22/24 02/23/24 02/24/24 02/25/24 23:59 23:59 23:59 23:59 Intake Total 540 620 630 360 Balance 540 620 630 360 Meds/Results Medications: Active Medications Generic Name Dose Route Start Last Admin Trade Name Freq PRN Reason Stop Dose Admin Acetaminophen 650 mg 02/21/24 15:16 02/22/24 18:31 Acetaminophen 325 Mg Tablet PO 650 mg Q4H PRN Administration Headache Hydrocodone Bitart/Acetaminophen 1 tab 02/25/24 10:43 02/25/24 11:15 Hydrocodone/Acetaminophen (*Crx) 10-325 Mg Tablet PO 1 tab Q4H PRN Administration Pain Rated 7-10 Lipase/Protease/Amylase 6 cap 02/24/24 08:00 02/25/24 11:15 Lipase/Amylase/Protease 12,000 Units Cap PO 6 cap TIDWM RAPHAEL Administration Lipase/Protease/Amylase 2 cap 02/23/24 21:47 Lipase/Amylase/Protease 12,000 Units Cap PO PRN PRN SNACKS Aspirin 81 mg 02/20/24 09:00 02/25/24 08:04 Aspirin 81 Mg Enteric Tablet PO 81 mg QAM RAPHAEL Administration Atorvastatin Calcium 80 mg 02/20/24 21:00 02/24/24 21:37 Atorvastatin 40 Mg Tablet PO 80 mg HS RAPHAEL Administration Bupropion HCl 150 mg 02/22/24 21:00 02/24/24 21:36 Bupropion Hcl Sr (12 Hr) 150 Mg Tab PO 150 mg HS RAPHAEL Administration Citalopram Hydrobromide 40 mg 02/23/24 09:00 02/25/24 08:04 Citalopram Hydrobromide 20 Mg Tablet PO 40 mg DAILY RAPHAEL Administration Dextrose 12.5 gm 02/20/24 00:48 Dextrose 50% 25 Gm/50 Ml Syringe IV PUSH PRN PRN Hypoglycemia Protocol Enoxaparin Sodium 40 mg 02/20/24 09:00 02/25/24 08:04 Enoxaparin 40 Mg/0.4 Ml Syringe SUB-Q 40 mg DAILY RAPHAEL Administration Fenofibrate 145 mg 02/20/24 09:00 02/25/24 08:04 Fenofibrate Nanocrystallized 145 Mg Tablet PO 145 mg DAILY RAPHAEL Administration Fish Oil 2 gm 02/24/24 17:00 02/25/24 08:04 [place] 3 Polyunsat Fatty Acids 1 Gm Cap PO Not Given BID RAPHAEL Glucagon 1 mg 02/20/24 00:48 Glucagon For Inj 1 Mg Vial IM PRN PRN Hypoglycemia Protocol Glucose 15 gm 02/20/24 00:48 Glucose Oral Gel 15 Gm Of Glucse In 37.5 Gm Tube PO PRN PRN Hypoglycemia Protocol Dextrose 1,000 mls @ 100 mls/hr 02/20/24 00:48 Dextrose 5% 1,000 Ml IVPB PRN PRN Hypoglycemia Protocol Levothyroxine Sodium 200 mcg 02/20/24 07:05 02/25/24 06:10 Levothyroxine Sodium 100 Mcg Tablet PO 200 mcg DAILY@0630 RAPHAEL Administration Lorazepam 1 mg 02/20/24 10:23 02/23/24 21:12 Lorazepam (*Crx) 1 Mg Tablet PO 1 mg QHS PRN Administration sleep Metformin HCl 1,000 mg 02/20/24 08:00 02/25/24 08:08 Metformin Hcl 500 Mg Tablet PO 1,000 mg BIDWM RAPHAEL Administration Ondansetron HCl 4 mg 02/25/24 10:43 02/25/24 11:16 Ondansetron Inj 4 Mg/2 Ml Vial IV PUSH 4 mg Q6H PRN Administration Nausea And Vomiting Pantoprazole Sodium 40 mg 02/20/24 09:00 02/25/24 08:04 Pantoprazole 40 Mg Tablet PO 40 mg Q12HR RAPHAEL Administration Promethazine HCl 12.5 mg 02/22/24 10:05 02/24/24 21:36 Promethazine Hcl 25 Mg/Ml Ampul IV PUSH 12.5 mg Q4H PRN Administration Nausea And Vomiting Senna 17.2 mg 02/22/24 21:00 02/24/24 21:37 Sennosides 8.6 Mg Tablet PO Not Given HS RAPHAEL Ticagrelor 90 mg 02/20/24 09:00 02/25/24 08:04 Ticagrelor 90 Mg Tablet PO 90 mg Q12HR RAPHAEL Administration Radiology Results: ITS Impressions Abdomen/Pelvis CT 02/19/24 23:28 IMPRESSION: 1. No acute intra-abdominal/pelvic process. Labs Labs: Laboratory Results - last 24 hr 02/24/24 02/24/24 02/25/24 16:44 19:53 07:16 WBC 6.9 RBC 4.26 Hgb 12.5 Hct 37.2 MCV 87.3 MCH 29.3 MCHC 33.6 RDW 14.1 Plt Count 206 MPV 9.3 Sodium 138 Potassium 3.6 Chloride 102 Carbon Dioxide 25 Anion Gap 11 BUN 9 Creatinine 0.60 L Estim Creat Clear Calc 108 Estimated GFR > 60 Glucose 145 H POC Capillary Glucose 162 H 174 H Calcium 9.0 Phosphorus 3.7 Magnesium 1.2 L Total Bilirubin 0.8 AST 34 ALT 26 Alkaline Phosphatase 57 Total Protein 7.0 Albumin 4.3 Triglycerides 708 H Cholesterol 133 LDL Cholesterol Direct < 30 HDL Direct TNP 02/25/24 02/25/24 08:03 11:46 WBC RBC Hgb Hct MCV MCH MCHC RDW Plt Count MPV Sodium Potassium Chloride Carbon Dioxide Anion Gap BUN Creatinine Estim Creat Clear Calc Estimated GFR Glucose POC Capillary Glucose 168 H 159 H Calcium Phosphorus Magnesium Total Bilirubin AST ALT Alkaline Phosphatase Total Protein Albumin Triglycerides Cholesterol LDL Cholesterol Direct HDL Direct
[2024-02-25 16:03] LABS: Glucose Point of Care 165 mg/dl (65-105)
[2024-02-25 16:17] LABS: Magnesium 1.8 mg/dL (1.6-2.3)
[2024-02-25] MEDS: MAGNESIUM SULF 1 GM/D5W 100 ML 1 GM/100 ML BAG IVPB (17:25)
[2024-02-25 21:06] VITALS: BP 109/69; PULSE 89; RESP 20; TEMP 36.6; O2SAT 98
[2024-02-25] MEDS: buPROPion HCL SR (12 HR) 150 MG TAB PO (21:33)
[2024-02-25] MEDS: ATORVASTATIN 40 MG TABLET 80 MG PO (21:33)
[2024-02-26 03:03] LABS: Glucose Point of Care 127 mg/dl (65-105)
[2024-02-26] MEDS: HYDROcodone/acetaminophen (*CRX) 10-325 MG TABLET 1 TAB PO ×4 (04:57→20:39)
[2024-02-26] MEDS: LEVOTHYROXINE SODIUM 100 MCG TABLET 200 MCG PO (05:26)
[2024-02-26 05:52] VITALS: BP 92/54; PULSE 83; RESP 16; TEMP 36.8; O2SAT 98
[2024-02-26 07:03] LABS: Basophils Percent Auto 0.4 % (0.2-1.2); Eosinophils Absolute Auto 0.1 K/mm3 (0-0.3); Hematocrit 39.2 % (37.0-47.0); Hemoglobin 12.5 g/dL (12.0-15.0); Immature Granulocyte Absolute 0.11 K/mm3 (0.00-0.031); Immature Granulocyte Percent A 1.5 % (0-0.5); Lymphocytes Percent Auto 23.9 % (18.3-44.2); Mean Corpuscular HGB Conc 31.9 g/dl (32-36); Mean Corpuscular Hemoglobin 28.4 pg (26-34); Mean Corpuscular Volume 89.1 fl (80-100); Mean Platelet Volume 9.1 fl (7.4-10.4); Monocytes Absolute Auto 0.6 K/mm3 (0.1-0.6); Monocytes Percent Auto 7.9 % (2.6-8.5); Neutrophils Absolute Auto 4.6 K/mm3 (1.3-6.7); Neutrophils Percent Auto 65.3 % (45.5-73.1); Platelet Count Result 201 k/mm3 (150-375); Red Cell Distribution Width 14.1 % (11.5-14.5); White Blood Count 7.1 K/mm3 (4.5-10.0)
[2024-02-26 07:13] LABS: Alanine Aminotransferase 32 U/L (6-35); Albumin Level 4.3 g/dL (3.5-5.1); Alkaline Phosphatase 58 U/L (38-126); Anion Gap 8 mmol/L (4-12); Aspartate Amino Transferase 37 U/L (14-36); Bilirubin,Total 0.8 mg/dL (0.2-1.3); Blood Urea Nitrogen 12 mg/dL (7-17); Carbon Dioxide 30 mmol/L (22-30); Chloride 101 mmol/L (98-107); Estimated CRCL calculation 72 ml/min; Estimated Glomerular Filt Rate > 60; Glucose 118 mg/dL (65-110); Potassium 3.8 mmol/L (3.4-5.0); Sodium 139 mmol/L (137-145)
[2024-02-26 07:59] LABS: Glucose Point of Care 126 mg/dl (65-105)
[2024-02-26 08:10] LABS: Cholesterol 126 mg/dL (0-200)
[2024-02-26] MEDS: CITALOPRAM HYDROBROMIDE 20 MG TABLET 40 MG PO (08:24)
[2024-02-26] MEDS: metFORMIN HCL 500 MG TABLET 1000 MG PO ×2 (08:25→17:03)
[2024-02-26] MEDS: FENOFIBRATE NANOCRYSTALLIZED 145 MG TABLET PO (08:25)
[2024-02-26] MEDS: PANTOPRAZOLE 40 MG TABLET PO ×2 (08:25→20:39)
[2024-02-26] MEDS: LIPASE/AMYLASE/PROTEASE 12,000 UNITS CAP 6 CAP PO ×3 (08:25→17:03)
[2024-02-26] MEDS: ASPIRIN 81 MG ENTERIC TABLET PO (08:25)
[2024-02-26] MEDS: TICAGRELOR 90 MG TABLET PO ×2 (08:25→20:39)
[2024-02-26] MEDS: ENOXAPARIN 40 MG/0.4 ML SYRINGE SUB-Q (08:25)
[2024-02-26 08:32] LABS: LDL Cholesterol Direct < 30 mg/dL; Triglycerides 718 mg/dL (<150)
[2024-02-26] MEDS: PROMETHAZINE HCL 25 MG/ML AMPUL 12.5 MG IV PUSH ×2 (09:26→14:58)
[2024-02-26 11:36] LABS: Glucose Point of Care 123 mg/dl (65-105)
--- NOTE | 2024-02-26 13:37 | PM.IMPN ---
Progress Note: A&P Assessment and Plan (1) Abdominal pain: Code(s): R10.9 - Unspecified abdominal pain Status: Acute (2) Nausea & vomiting: Code(s): R11.2 - Nausea with vomiting, unspecified Status: Acute (3) Hypertriglyceridemia: Code(s): E78.1 - Pure hyperglyceridemia Status: Chronic Plan (1) Abdominal pain: Code(s): R10.9 - Unspecified abdominal pain Status: Acute Assessment and Plan: Secondary to chronic pancreatitis and hypertriglyceridemia. Lipase level is normal at this time Patient is being treated with insulin infusion and IV fluids for hypertriglyceridemia. Nephrology consulted and plasmapheresis done 02/19. Monitor triglyceride levels. Advance diet as tolerated. Creon with meals Continue PRN [place] and titrate off Dilaudid, continue Zofran PRN, and Compazine 02/21 Triglycerides 605 mg/dl. 02/22 Trigs 498 02/24 Trigs 708 02/25 trigs 718 pt is on statin 80 mg q.h.s., fenofibrate 145 mg daily p.o. add [place] 3 polyunsaturated fatty acid 2 g b.i.d.but pt declines it (2) Chronic pancreatitis: Code(s): K86.1 - Other chronic pancreatitis Status: Acute Assessment and Plan: See above (3) Hypertriglyceridemia: Code(s): E78.1 - Pure hyperglyceridemia Status: Chronic Assessment and Plan: Continue statin and fenofibrate. (4) Insulin dependent diabetes mellitus: Status: Chronic Assessment and Plan: 02/21 FBS 100, 02/22 109 Continue metformin (5) GERD (gastroesophageal reflux disease): Qualifiers: Esophagitis presence: esophagitis presence not specified Qualified Code(s): K21.9 - Gastro-esophageal reflux disease without esophagitis Code(s): K21.9 - Gastro-esophageal reflux disease without esophagitis Status: Acute Assessment and Plan: Continue PPI (6) CAD (coronary artery disease): Code(s): I25.10 - Atherosclerotic heart disease of [place] coronary artery without angina pectoris Status: Chronic Assessment and Plan: Continue aspirin Brilinta statin Patient is not on Justin/ARB or beta-lelo as an outpatient due to chronic low blood pressures DVT prophylaxis on Sq Lovenox trending Triglycerides which discharge depends on Subjective Date/time seen: 02/26/24 13:37 Interval history: still has pain however triglycerides up to 718 today Reached out to nephrology about needing another plasmapahresis Review of Systems Review of Systems: ABDOMINAL PAIN, BODY ACHES All systems reviewed & are unremarkable except as noted in HPI and below Exam Narrative: GENERAL: in no acute distress. Well-nourished. - EYES: EOMI. Anicteric. - HENT: Moist mucous membranes. - LUNGS: Clear to auscultation bilaterally, no wheezing, rhonchi, or rales. - CARDIOVASCULAR: Regular rate and rhythm. No murmur. No JVD. - ABDOMEN: Soft, mild diffuse abdominal tender and non-distended. No palpable masses. - EXTREMITIES: No edema. Peripheral pulses 2+. Non-tender. - NEUROLOGIC: No focal neurological deficits. CN II-XII grossly intact. - PSYCHIATRIC: Awake, Alert and oriented x 3. Appropriate mood and affect. - SKIN: No rashes or lesions. Warm. - LYMPH: No cervical lymphadenopathy. Const: General: comfortable, no acute distress, well developed, alert, awake and average body habitus Nutritional Appearance: average body habitus Orientation/consciousness: patient oriented x3 HENMT: Head: normal to inspection, normocephalic and atraumatic Ears: hearing grossly normal bilaterally Face/Nose/Sinus: normal facial exam Face and sinus: normal facial exam Eyes: General: appearance normal, both eyes and all related structures Pupils: Equal, round and reactive pupils present EOM: EOMs intact bilaterally Neck: Neck: full ROM, no lymphadenopathy and no JVD Thyroid: thyroid normal Lymphatic: no lymphadenopathy noted Resp: Effort & Inspection: normal respiratory effort and able to speak in complete sentences Auscultation: clear to auscultation bilaterally Cardio: Jugular venous distension: no JVD Rate: regular rate Rhythm: regular rhythm Heart sounds: S1 normal heart sound present and S2 normal heart sound present GI: Inspection: obesity : General: Yes deferred Skin: Rashes: no rashes Wounds: no wounds Neuro: General: patient oriented x3 and CN's II-XI intact bilaterally Cranial nerves: Yes CN's II-XII intact bilaterally and Yes Equal, round and reactive pupils present Cognition (Neuro): normal cognition Speech: normal speech Gait exam (Neuro): Normal gait present Motor exam (neuro): 5/5 motor strength present throughout Extrem: General: normal to inspection, full ROM, no joint enlargement and no pedal edema Objective Data Vital Signs Vital Signs: Vital Signs - 24 hr 02/25/24 14:00 02/25/24 21:06 02/25/24 20:00 Temperature 96.8 F L 97.8 F Pulse Rate 97 89 Respiratory Rate 20 20 Blood Pressure 113/63 109/69 Pulse Oximetry 98 98 Oxygen Delivery Room Air 02/26/24 05:52 02/26/24 08:00 Temperature 98.2 F Pulse Rate 83 Respiratory Rate 16 Blood Pressure 92/54 L Pulse Oximetry 98 Oxygen Delivery Room Air Intake/Output Intake/Output: Intake & Output 02/23/24 02/24/24 02/25/24 02/26/24 23:59 23:59 23:59 23:59 Intake Total 620 255 730 340 Balance 620 859 730 340 Meds/Results Medications: Active Medications Generic Name Dose Route Start Last Admin Trade Name Freq PRN Reason Stop Dose Admin Acetaminophen 650 mg 02/21/24 15:16 02/22/24 18:31 Acetaminophen 325 Mg Tablet PO 650 mg Q4H PRN Administration Headache Hydrocodone Bitart/Acetaminophen 1 tab 02/25/24 10:43 02/26/24 09:28 Hydrocodone/Acetaminophen (*Crx) 10-325 Mg Tablet PO 1 tab Q4H PRN Administration Pain Rated 7-10 Lipase/Protease/Amylase 6 cap 02/24/24 08:00 02/26/24 12:01 Lipase/Amylase/Protease 12,000 Units Cap PO 6 cap TIDWM RAPHAEL Administration Lipase/Protease/Amylase 2 cap 02/23/24 21:47 Lipase/Amylase/Protease 12,000 Units Cap PO PRN PRN SNACKS Aspirin 81 mg 02/20/24 09:00 02/26/24 08:25 Aspirin 81 Mg Enteric Tablet PO 81 mg QAM RAPHAEL Administration Atorvastatin Calcium 80 mg 02/20/24 21:00 02/25/24 21:33 Atorvastatin 40 Mg Tablet PO 80 mg HS RAPHAEL Administration Bupropion HCl 150 mg 02/22/24 21:00 02/25/24 21:33 Bupropion Hcl Sr (12 Hr) 150 Mg Tab PO 150 mg HS RAPHAEL Administration Citalopram Hydrobromide 40 mg 02/23/24 09:00 02/26/24 08:24 Citalopram Hydrobromide 20 Mg Tablet PO 40 mg DAILY RAPHAEL Administration Dextrose 12.5 gm 02/20/24 00:48 Dextrose 50% 25 Gm/50 Ml Syringe IV PUSH PRN PRN Hypoglycemia Protocol Enoxaparin Sodium 40 mg 02/20/24 09:00 02/26/24 08:25 Enoxaparin 40 Mg/0.4 Ml Syringe SUB-Q 40 mg DAILY RAPHAEL Administration Fenofibrate 145 mg 02/20/24 09:00 02/26/24 08:25 Fenofibrate Nanocrystallized 145 Mg Tablet PO 145 mg DAILY RAPHAEL Administration Fish Oil 2 gm 02/24/24 17:00 02/26/24 08:26 [place] 3 Polyunsat Fatty Acids 1 Gm Cap PO Not Given BID RAPHAEL Glucagon 1 mg 02/20/24 00:48 Glucagon For Inj 1 Mg Vial IM PRN PRN Hypoglycemia Protocol Glucose 15 gm 02/20/24 00:48 Glucose Oral Gel 15 Gm Of Glucse In 37.5 Gm Tube PO PRN PRN Hypoglycemia Protocol Dextrose 1,000 mls @ 100 mls/hr 02/20/24 00:48 Dextrose 5% 1,000 Ml IVPB PRN PRN Hypoglycemia Protocol Levothyroxine Sodium 200 mcg 02/20/24 07:05 02/26/24 05:26 Levothyroxine Sodium 100 Mcg Tablet PO 200 mcg DAILY@0630 RAPHAEL Administration Lorazepam 1 mg 02/20/24 10:23 02/23/24 21:12 Lorazepam (*Crx) 1 Mg Tablet PO 1 mg QHS PRN Administration sleep Metformin HCl 1,000 mg 02/20/24 08:00 02/26/24 08:25 Metformin Hcl 500 Mg Tablet PO 1,000 mg BIDWM RAPHAEL Administration Ondansetron HCl 4 mg 02/25/24 10:43 02/25/24 21:50 Ondansetron Inj 4 Mg/2 Ml Vial IV PUSH 4 mg Q6H PRN Administration Nausea And Vomiting Pantoprazole Sodium 40 mg 02/20/24 09:00 02/26/24 08:25 Pantoprazole 40 Mg Tablet PO 40 mg Q12HR RAPHAEL Administration Promethazine HCl 12.5 mg 02/22/24 10:05 02/26/24 09:26 Promethazine Hcl 25 Mg/Ml Ampul IV PUSH 12.5 mg Q4H PRN Administration Nausea And Vomiting Senna 17.2 mg 02/22/24 21:00 02/25/24 22:35 Sennosides 8.6 Mg Tablet PO Not Given HS RAPHAEL Ticagrelor 90 mg 02/20/24 09:00 02/26/24 08:25 Ticagrelor 90 Mg Tablet PO 90 mg Q12HR RAPHAEL Administration Radiology Results: ITS Impressions Abdomen/Pelvis CT 02/19/24 23:28 IMPRESSION: 1. No acute intra-abdominal/pelvic process. Labs Labs: Laboratory Results - last 24 hr 02/25/24 02/25/24 02/25/24 15:56 15:57 20:39 WBC RBC Hgb Hct MCV MCH MCHC RDW Plt Count MPV Immature Gran % (Auto) Neut % (Auto) Lymph % (Auto) [place] % (Auto) Eos % (Auto) Baso % (Auto) Lymph # (Auto) [place] # (Auto) Eos # (Auto) Baso # (Auto) Abs Immat Gran (auto) Absolute Neuts (auto) Absolute Nucleated RBC Nucleated RBC % Sodium Potassium Chloride Carbon Dioxide Anion Gap BUN Creatinine Estim Creat Clear Calc Estimated GFR Glucose POC Capillary Glucose 165 H 127 H Calcium Magnesium 1.8 Total Bilirubin AST ALT Alkaline Phosphatase Total Protein Albumin Triglycerides Cholesterol LDL Cholesterol Direct HDL Direct 02/26/24 02/26/24 02/26/24 06:48 07:52 11:23 WBC 7.1 RBC 4.40 Hgb 12.5 Hct 39.2 MCV 89.1 MCH 28.4 MCHC 31.9 L RDW 14.1 Plt Count 201 MPV 9.1 Immature Gran % (Auto) 1.5 H Neut % (Auto) 65.3 Lymph % (Auto) 23.9 [place] % (Auto) 7.9 Eos % (Auto) 1.0 Baso % (Auto) 0.4 Lymph # (Auto) 1.70 [place] # (Auto) 0.6 Eos # (Auto) 0.1 Baso # (Auto) 0.0 Abs Immat Gran (auto) 0.11 H Absolute Neuts (auto) 4.6 Absolute Nucleated RBC 0.000 Nucleated RBC % 0.0 Sodium 139 Potassium 3.8 Chloride 101 Carbon Dioxide 30 Anion Gap 8 BUN 12 Creatinine 0.90 Estim Creat Clear Calc 72 Estimated GFR > 60 Glucose 118 H POC Capillary Glucose 126 H 123 H Calcium 9.0 Magnesium 2.0 Total Bilirubin 0.8 AST 37 H ALT 32 Alkaline Phosphatase 58 Total Protein 7.0 Albumin 4.3 Triglycerides 718 H Cholesterol 126 LDL Cholesterol Direct < 30 HDL Direct TNP
[2024-02-26 14:00] VITALS: BP 99/57; PULSE 98; RESP 18; TEMP 36.1; O2SAT 96
[2024-02-26 16:42] LABS: Glucose Point of Care 163 mg/dl (65-105)
[2024-02-26] MEDS: buPROPion HCL SR (12 HR) 150 MG TAB PO (20:38)
[2024-02-26] MEDS: ATORVASTATIN 40 MG TABLET 80 MG PO (20:39)
[2024-02-26] MEDS: ONDANSETRON INJ 4 MG/2 ML VIAL IV PUSH (20:39)
[2024-02-26 20:46] LABS: Glucose Point of Care 178 mg/dl (65-105)
[2024-02-26] MEDS: LOPERAMIDE HCL 2 MG CAPSULE PO (21:37)
[2024-02-26 22:00] VITALS: BP 96/61; PULSE 102; RESP 18; TEMP 36.8; O2SAT 96
[2024-02-27] MEDS: HYDROcodone/acetaminophen (*CRX) 10-325 MG TABLET 1 TAB PO ×4 (00:08→13:07)
[2024-02-27 05:27] VITALS: BP 99/63; PULSE 84; RESP 16; TEMP 36.1; O2SAT 93
[2024-02-27] MEDS: LEVOTHYROXINE SODIUM 100 MCG TABLET 200 MCG PO (05:49)
[2024-02-27 07:41] LABS: Glucose Point of Care 128 mg/dl (65-105)
[2024-02-27 08:14] LABS: Potassium 3.7 mmol/L (3.4-5.0)
[2024-02-27 08:27] LABS: Basophils Percent Auto 0.4 % (0.2-1.2); Eosinophils Absolute Auto 0.1 K/mm3 (0-0.3); Eosinophils Percent Auto 0.7 % (0-4.4); Hematocrit 39.5 % (37.0-47.0); Hemoglobin 12.9 g/dL (12.0-15.0); Immature Granulocyte Absolute 0.14 K/mm3 (0.00-0.031); Immature Granulocyte Percent A 1.8 % (0-0.5); Lymphocytes Absolute Auto 1.61 K/mm3 (0.9-3.2); Lymphocytes Percent Auto 21.2 % (18.3-44.2); Mean Corpuscular HGB Conc 32.7 g/dl (32-36); Mean Corpuscular Hemoglobin 28.9 pg (26-34); Mean Corpuscular Volume 88.6 fl (80-100); Mean Platelet Volume 9.6 fl (7.4-10.4); Monocytes Absolute Auto 0.6 K/mm3 (0.1-0.6); Monocytes Percent Auto 7.3 % (2.6-8.5); Neutrophils Absolute Auto 5.2 K/mm3 (1.3-6.7); Neutrophils Percent Auto 68.6 % (45.5-73.1); Platelet Count Result 217 k/mm3 (150-375); Red Blood Count 4.46 M/mm3 (4.2-5.4); Red Cell Distribution Width 14.2 % (11.5-14.5); White Blood Count 7.6 K/mm3 (4.5-10.0)
[2024-02-27 08:29] LABS: Alanine Aminotransferase 28 U/L (6-35); Albumin Level 4.5 g/dL (3.5-5.1); Alkaline Phosphatase 65 U/L (38-126); Anion Gap 12 mmol/L (4-12); Aspartate Amino Transferase 28 U/L (14-36); Bilirubin,Total 0.6 mg/dL (0.2-1.3); Blood Urea Nitrogen 17 mg/dL (7-17); Carbon Dioxide 25 mmol/L (22-30); Chloride 104 mmol/L (98-107); Cholesterol 126 mg/dL (0-200); Estimated CRCL calculation 80 ml/min; Estimated Glomerular Filt Rate > 60; Glucose 132 mg/dL (65-110); Magnesium 1.7 mg/dL (1.6-2.3); Sodium 141 mmol/L (137-145)
[2024-02-27 08:38] LABS: LDL Cholesterol Direct < 30 mg/dL; Triglycerides 683 mg/dL (<150)
[2024-02-27] MEDS: ONDANSETRON INJ 4 MG/2 ML VIAL IV PUSH (09:35)
[2024-02-27] MEDS: ENOXAPARIN 40 MG/0.4 ML SYRINGE SUB-Q (09:38)
[2024-02-27] MEDS: LIPASE/AMYLASE/PROTEASE 12,000 UNITS CAP 6 CAP PO ×2 (09:40→12:45)
[2024-02-27] MEDS: metFORMIN HCL 500 MG TABLET 1000 MG PO (09:42)
[2024-02-27] MEDS: CITALOPRAM HYDROBROMIDE 20 MG TABLET 40 MG PO (09:43)
[2024-02-27] MEDS: PANTOPRAZOLE 40 MG TABLET PO (09:44)
[2024-02-27] MEDS: ASPIRIN 81 MG ENTERIC TABLET PO (09:44)
[2024-02-27] MEDS: FENOFIBRATE 160 MG TABLET PO (09:44)
[2024-02-27] MEDS: TICAGRELOR 90 MG TABLET PO (09:44)
--- NOTE | 2024-02-27 10:35 | PCNWS ---
Weekly nutritional screen. Patient is tolerating current diabetic diet with adequate intake. No weight loss reported. No nutritional recommendations at this time.
[2024-02-27 11:21] LABS: Glucose Point of Care 157 mg/dl (65-105)
--- NOTE | 2024-02-27 13:52 | PM.DS ---
DS: Admitting Diagnosis Discharge Date 02/27/2024 Admitting Diagnosis abd pain DS: Discharge Diagnosis Discharge Diagnosis (1) Abdominal pain: Code(s): R10.9 - Unspecified abdominal pain Status: Acute (2) Chronic pancreatitis: Code(s): K86.1 - Other chronic pancreatitis Status: Acute (3) Hypertriglyceridemia: Code(s): E78.1 - Pure hyperglyceridemia Status: Chronic DS: Summary Hospital Course Hospital Course: THIS IS A 48-YEAR-OLD FEMALE WITH PAST MEDICAL HISTORY SIGNIFICANT FOR CHYLOMICRONEMIA SYNDROME, CHRONIC PANCREATITIS, GERD. PATIENT PRESENTS TO THE EMERGENCY ROOM DUE TO ABDOMINAL PAIN GENERALIZED BODY ACHES. PRELIMINARY WORKUP SIGNIFICANT FOR TRIGLYCERIDE ABOVE 1000. PATIENT HAS BEEN ADMITTED TO INTENSIVE CARE UNIT FOR FURTHER EVALUATION MANAGEMENT AND TREATMENT. Nephrology was consulted and patient underwent plasmapharesis and Fenofibate increased to 160mg daily. patient declined [place] 3 fatty acids as she noted she was advised from her providers in [facility] not to take it as it is more fats than she needs in a day. discharged on PRN pain control with Hydrocodone and Zofran for nausea. Abd pain has improved, she is tolerating diet and discharged today to follow up [place] PCP in 3-5 days and nephrology as instructed. Also to follow up with providers at [facility]. Assessment and Plan (1) Abdominal pain: Code(s): R10.9 - Unspecified abdominal pain Status: Acute (2) Nausea & vomiting: Code(s): R11.2 - Nausea with vomiting, unspecified Status: Acute (3) Hypertriglyceridemia: Code(s): E78.1 - Pure hyperglyceridemia Status: Chronic Plan (1) Abdominal pain: Code(s): R10.9 - Unspecified abdominal pain Status: Acute Assessment and Plan: Secondary to chronic pancreatitis and hypertriglyceridemia. Lipase level is normal at this time Patient is being treated with insulin infusion and IV fluids for hypertriglyceridemia. Nephrology consulted and plasmapheresis done 02/19. Monitor triglyceride levels. Advance diet as tolerated. Creon with meals Continue PRN Coral and titrate off Dilaudid, continue Zofran PRN, and Compazine 02/21 Triglycerides 605 mg/dl. 02/22 Trigs 498 02/24 Trigs 708 02/25 trigs 718 pt is on statin 80 mg q.h.s., fenofibrate 145 mg daily p.o. add [place] 3 polyunsaturated fatty acid 2 g b.i.d.but pt declines it (2) Chronic pancreatitis: Code(s): K86.1 - Other chronic pancreatitis Status: Acute Assessment and Plan: See above (3) Hypertriglyceridemia: Code(s): E78.1 - Pure hyperglyceridemia Status: Chronic Assessment and Plan: Continue statin and fenofibrate. (4) Insulin dependent diabetes mellitus: Status: Chronic Assessment and Plan: 02/21 FBS 100, 02/22 109 Continue metformin (5) GERD (gastroesophageal reflux disease): Qualifiers: Esophagitis presence: esophagitis presence not specified Qualified Code(s): K21.9 - Gastro-esophageal reflux disease without esophagitis Code(s): K21.9 - Gastro-esophageal reflux disease without esophagitis Status: Acute Assessment and Plan: Continue PPI (6) CAD (coronary artery disease): Code(s): I25.10 - Atherosclerotic heart disease of [place] coronary artery without angina pectoris Status: Chronic Assessment and Plan: Continue aspirin Brilinta statin Patient is not on Justin/ARB or beta-lelo as an outpatient due to chronic low blood pressures Time Spent with Patient Time attestation: Total time spent providing and/or coordinating discharge services: DS: Data Data Completed and Pending Labs on day of discharge: Labs from last 24 hours 02/27/24 02/27/24 02/26/24 11:12 07:37 20:06 WBC 7.6 RBC 4.46 Hgb 12.9 Hct 39.5 MCV 88.6 MCH 28.9 MCHC 32.7 RDW 14.2 Plt Count 217 MPV 9.6 Immature Gran % (Auto) 1.8 H Neut % (Auto) 68.6 Lymph % (Auto) 21.2 [place] % (Auto) 7.3 Eos % (Auto) 0.7 Baso % (Auto) 0.4 Lymph # (Auto) 1.61 [place] # (Auto) 0.6 Eos # (Auto) 0.1 Baso # (Auto) 0.0 Abs Immat Gran (auto) 0.14 H Absolute Neuts (auto) 5.2 Absolute Nucleated RBC 0.000 Nucleated RBC % 0.0 Sodium 141 Potassium 3.7 Chloride 104 Carbon Dioxide 25 Anion Gap 12 BUN 17 Creatinine 0.80 Estim Creat Clear Calc 80 Estimated GFR > 60 Glucose 132 H POC Capillary Glucose 157 H 128 H 178 H Calcium 9.0 Magnesium 1.7 Total Bilirubin 0.6 AST 28 ALT 28 Alkaline Phosphatase 65 Total Protein 7.0 Albumin 4.5 Triglycerides 683 H Cholesterol 126 LDL Cholesterol Direct < 30 HDL Direct TNP 02/26/24 16:34 WBC RBC Hgb Hct MCV MCH MCHC RDW Plt Count MPV Immature Gran % (Auto) Neut % (Auto) Lymph % (Auto) [place] % (Auto) Eos % (Auto) Baso % (Auto) Lymph # (Auto) [place] # (Auto) Eos # (Auto) Baso # (Auto) Abs Immat Gran (auto) Absolute Neuts (auto) Absolute Nucleated RBC Nucleated RBC % Sodium Potassium Chloride Carbon Dioxide Anion Gap BUN Creatinine Estim Creat Clear Calc Estimated GFR Glucose POC Capillary Glucose 163 H Calcium Magnesium Total Bilirubin AST ALT Alkaline Phosphatase Total Protein Albumin Triglycerides Cholesterol LDL Cholesterol Direct HDL Direct Discharge Plan Discharge Attending physician on discharge: Юлия Carrion Consulting providers: Radames Mcgrath; Eli Kaminski Discharging Clinician: Юлия Carrion Anticipated Discharge Date/Time: 02/27/24 13:44 Patient Disposition: Home, Self-Care Activity: as tolerated Diet: as tolerated Patient Instructions: Antibiotic Form Stand Alone Forms: General Discharge Information Follow-up/Referrals: Jose Zuniga APRN [Primary Care Provider] - (F/u with PCP in 3-5 days) Eli Kaminski MD [Physician] - (F/u with nephrology as instructed) Discharge Medications: New hydrocodone-acetaminophen 10-325 mg tablet 1 tablet PO Q6H PRN (Reason: pain) Qty: 12 0RF ondansetron 4 mg tablet,disintegrating 4 mg PO Q8H PRN (Reason: nausea and vomiting) Qty: 10 0RF fenofibrate 160 mg Tablet 160 mg PO DAILY 30 Days Qty: 30 1RF Continued metformin 500 mg tablet 1,000 mg PO BID Qty: 180 1RF Rx Instructions: with morning & evening meals pantoprazole [Protonix] 40 mg tablet,delayed release (DR/EC) 40 mg PO BID Qty: 30 0RF levothyroxine 200 mcg tablet 200 mcg PO DAILY Cre[place] 36,000-114,000- 180,000 unit capsule,delayed release(DR/EC) 2 cap PO TIDWMEAL Rx Instructions: Take 2 capsules with meals and 1 capsule with any snacks. aspirin 81 mg Tablet,Delayed Release (Dr/Ec) 81 mg PO QAM Qty: 30 0RF citalopram 40 mg tablet 40 mg PO DAILY Rx Instructions: TAKE 1 TABLET BY MOUTH EVERY DAY bupropion HCl 150 mg tablet sustained-release 12 hr 150 mg PO HS ondansetron 4 mg tablet,disintegrating 4 mg PO Q8H PRN (Reason: nausea and vomiting) Qty: 30 0RF Brilinta 90 mg tablet 90 mg PO BID Qty: 180 0RF (DME) pen needle, diabetic [BD Ultra-Fine Diandra Pen Needle] 32 gauge x 5/32 needle See Rx Instructions .ROUTE .MEDSUPPLY Qty: 1200 12RF Rx Instructions: 4 times daily (DME) insulin syringe-needle U-100 [BD Insulin Syringe Ultra-Fine] 0.3 mL 31 gauge x 5/16 syringe See Rx Instructions .ROUTE .MEDSUPPLY Qty: 100 12RF Rx Instructions: 4 times a day trazodone 100 mg tablet 200 mg PO HS Qty: 180 1RF lorazepam 1 mg tablet 1 mg PO QHS PRN (Reason: sleep) Qty: 90 0RF atorvastatin 80 mg tablet 80 mg PO HS Qty: 90 1RF Discontinued fenofibrate nanocrystallized 145 mg tablet 145 mg PO DAILY Qty: 90 1RF Date of admission: 02/20/24 00:57 Primary Care Provider: Jose Zuniga Admitting Provider: Robert Michaels V. Attending physician on admission: Robert Michaels V. Condition: Improved
[2024-02-27 14:00] VITALS: BP 103/50; PULSE 94; RESP 16; TEMP 36.1; O2SAT 94
[2024-02-27] MEDS: INFLUENZA TRIVALENT VACCINE 45 MCG/0.5 ML SYRINGE IM (14:06)
== END 2024-02-27 16:35 | disposition home or self-care (01) | DRG 642 ==
LOC: ANHED 21:09 → ANHICU 02-20 01:19 → ANHIMU 02-21 08:58 → ANH3MEDSUR 02-22 13:16
PROVIDERS: Hospitalist; Internal Medicine; Internal Medicine Nephrology; Admitting Provider Internal Medicine; Emergency Provider Emergency Medicine; PCP Nurse Practitioner; Visit Provider Internal Medicine
DX: E78.1 Pure hyperglyceridemia (principal); K86.1 Other chronic pancreatitis; E78.3 Hyperchylomicronemia; E78.5 Hyperlipidemia, unspecified; E11.9 Type 2 diabetes mellitus without complications; E03.9 Hypothyroidism, unspecified; F17.210 Nicotine dependence, cigarettes, uncomplicated; I25.10 Atherosclerotic heart disease of native coronary artery without angina pectoris; K21.9 Gastro-esophageal reflux disease without esophagitis; Z23 Encounter for immunization; Z79.4 Long term (current) use of insulin; Z79.82 Long term (current) use of aspirin; Z79.84 Long term (current) use of oral hypoglycemic drugs; Z90.49 Acquired absence of other specified parts of digestive tract; Z95.5 Presence of coronary angioplasty implant and graft
CPT/HCPCS: 36415; 36514; 74177; 80048; 80053; 80061; 81003; 82948; 83690; 83735; 84100; 84478; 84703; 85025; 85027; 87641; 90471; 90656; 96361; 96374; 96375; 99285; A9270; G0008; J0613; J1171; J1644; J1650; J1815; J2270; J2405; J2550; J3475; J3480; J7030; P9045; Q9967

== ENCOUNTER 2024-03-16 11:15 | Outpatient (RCR) | payer MEDICARE, SELFPAY ==
[2023-12-31 11:47] VITALS: PULSE 106
== END 2024-04-20 07:44 | disposition home or self-care (01) ==
LOC: ANHCPREHAB 11:15
PROVIDERS: PCP Nurse Practitioner
DX: Z95.5 Presence of coronary angioplasty implant and graft (principal)
CPT/HCPCS: 93798

== ENCOUNTER 2024-03-30 19:49 | Inpatient (IN) | payer MEDICARE, SELFPAY ==
--- NOTE | ~2024-03-30 | XR_ITS ---
EXAMINATION: XR chest 1V portable DATE: 04/02/2024 13:07 INDICATION: Chest pain. TECHNIQUE: A single frontal view of the chest was obtained. COMPARISON: Chest single view 10/09/2023, CT abdomen and pelvis 03/31/2024 FINDINGS: There is no pneumonia, pleural effusion, or pneumothorax. The heart size is normal. There i s a right internal jugular port with tip at superior cavoatrial junction. There is a left internal ju gular port with tip at superior cavoatrial junction. IMPRESSION: 1. No acute cardiopulmonary disease. Reviewed, dictated and finalized at location A. [employer]UC[employer]
--- NOTE | ~2024-03-30 | CT_ITS ---
CT of the Abdomen and Pelvis: Indication: Abdominal pain Technique: 2.5 mm axial scans were obtained through the abdomen and pelvis following intravenous adm inistration of 100 cc of Omnipaque 350. Dose reduction technique was used on this scan by utilizing a utomated exposure control and iterative reconstruction technique. The dose-length product (DLP) was 1 306.53 mGy-cm. COMPARISON: 02/19/2024 Findings: Scans through the lung bases are unremarkable. The liver, spleen, pancreas, gallbladder, adrenals and kidneys are within normal limits. There are at herosclerotic calcifications of the aorta. No lymphadenopathy. No bowel obstruction or bowel wall thickening. There is no evidence to suggest acute appendicitis. Images through the pelvis were performed. Urinary bladder unremarkable. No pelvic mass seen. No ascit es. Status post hysterectomy. Impression: No significant abnormalities seen. Reviewed, dictated and finalized at [facility]. BING MANAGER Impression: No significant abnormalities seen.
--- NOTE | ~2024-03-30 | US_ITS ---
EXAMINATION: US venous doppler [facility] DATE: 04/02/2024 15:48 INDICATION: Chest pain. TECHNIQUE: Grayscale ultrasound images without and with compression and Doppler ultrasound images of the bilateral lower extremity veins were obtained. COMPARISON: Ultrasound 07/29/2016 FINDINGS: The visualized portions of right common femoral vein, profunda (deep) femoral vein, femoral vein, pop liteal vein, peroneal veins, posterior tibial veins, and greater saphenous vein outflow are patent. The visualized portions of left common femoral vein, profunda femoral vein, femoral vein, popliteal v ein, peroneal veins, posterior tibial veins, and greater saphenous vein outflow are patent. IMPRESSION: 1. No deep venous thrombosis. Reviewed, dictated and finalized at location A. CTOR CONSUMER
--- NOTE | ~2024-03-30 | CT_ITS ---
EXAMINATION: CT abdomen pelvis w con DATE: 04/07/2024 09:56 INDICATION: Persistent abdominal pain TECHNIQUE: Computed tomography (CT) of the abdomen and pelvis was performed with 100 mL Omnipaque-350 intravenous contrast. Automated exposure control and iterative reconstruction technique were employe d. The dose-length product was 1116.94 mGy-cm. COMPARISON: 03/31/2024 FINDINGS: Minimal dependent atelectasis in the left lower lobe. Heart size is normal. Atherosclerotic coronary artery calcification. No pericardial or pleural effusion. Liver, gallbladder, pancreas, bilateral adr enal glands and right kidney are normal. There are some external rotation of the lower pole of the le ft kidney with the inferior hilum facing anterolaterally as well as small accessory renal artery and veins arising from the left common iliac artery and vein respectively extend the inferior left renal pelvis around the posterior margin of the lower pole. 1-2 mm nonobstructing stone at the lower pole o f the left kidney. And 1 cm intermediate attenuation proteinaceous/hemorrhagic cyst at the lower pole the left kidney which is unchanged since MRI dated 12/07/2016 at which time it demonstrated no enhanc ement. Spleen is normal with no interval change in a chronic small crescentic fluid collection along its caudal margin which can be seen dating back to 04/03/2022. Bladder is distended measuring 15.2 x 9 .8 x 12.5 cm. Bilateral adnexa are unremarkable. The uterus is not identified and has likely been brandon gically resected. Bilateral adnexa are unremarkable. There is mild scattered colonic diverticulosis w ithout adjacent comparison to suggest diverticulitis. No bowel obstruction. The appendix is not visua lized. No pericecal inflammatory change to suggest acute appendicitis. No free intraperitoneal gas or fluid. No pathologically enlarged abdominal or pelvic lymphadenopathy. Mild stranding and tiny foci of gas in the subcutaneous tissues at the anterior left lower quadrant abdominal wall likely related to subcutaneous injections. Mild thoracolumbar spondylosis. IMPRESSION: 1. No acute intra-abdominal/pelvic process. 2. Nonobstructing 1-2 mm left renal stone. Reviewed, dictated and finalized at location A. [employer]
[2024-03-30 19:50] VITALS: BP 131/72; PULSE 95; RESP 15; TEMP 36; O2SAT 99
[2024-03-30 23:03] LABS: BEDSIDEPREGUCG Negative (Negative)
[2024-03-30 23:03] LABS: Add Urine Microscopic? NO; Appearance Urine Clear (Clear); Bilirubin Urine Negative (Negative); Blood Urine Negative (Negative); Color Urine Yellow (Yellow); Glucose Urine UA Negative (Negative); Ketones Urine Negative (Negative); Leukocyte Esterase Ur Negative LEU/UL (Negative); Nitrate Urine Negative (Negative); Protein Urine Negative (Negative); Specific Grav Ur 1.021 (1.001-1.035)
[2024-03-30 23:39] VITALS: O2SAT 97
[2024-03-30 23:40] VITALS: BP 130/70; O2SAT 97
[2024-03-30 23:41] VITALS: O2SAT 98
[2024-03-30 23:45] VITALS: O2SAT 96
[2024-03-30 23:47] VITALS: BP 122/69; O2SAT 98
[2024-03-30 23:57] LABS: Glucose Point of Care 65 mg/dl (65-105)
[2024-03-30] MEDS: DEXTROSE 50% 25 GM/50 ML SYRINGE IV PUSH (23:59)
[2024-03-31] VITALS (22 sets, daily range): BP systolic 92–117; BP diastolic 57–82; PULSE 70–88; RESP 13–17; TEMP 36.3–36.6; O2SAT 85–100; BMI 32.5
[2024-03-31 00:46] LABS: Basophils Absolute Auto 0.1 K/mm3 (0.0-0.1); Basophils Percent Auto 0.6 % (0.2-1.2); Eosinophils Absolute Auto 0.1 K/mm3 (0-0.3); Eosinophils Percent Auto 1.2 % (0-4.4); Hematocrit 38.9 % (37.0-47.0); Hemoglobin 12.6 g/dL (12.0-15.0); Immature Granulocyte Absolute 0.21 K/mm3 (0.00-0.031); Lymphocytes Absolute Auto 3.48 K/mm3 (0.9-3.2); Lymphocytes Percent Auto 32.6 % (18.3-44.2); Mean Corpuscular HGB Conc 32.4 g/dl (32-36); Mean Corpuscular Hemoglobin 28.8 pg (26-34); Mean Platelet Volume 9.1 fl (7.4-10.4); Monocytes Absolute Auto 0.5 K/mm3 (0.1-0.6); Monocytes Percent Auto 4.8 % (2.6-8.5); Neutrophils Absolute Auto 6.3 K/mm3 (1.3-6.7); Neutrophils Percent Auto 58.8 % (45.5-73.1); Platelet Count Result 323 k/mm3 (150-375); Red Blood Count 4.37 M/mm3 (4.2-5.4); Red Cell Distribution Width 15.7 % (11.5-14.5); White Blood Count 10.7 K/mm3 (4.5-10.0)
[2024-03-31] MEDS: SODIUM CHLORIDE 0.9% IV 1,000 ML 999 ML IV CONT ×2 (01:08→07:00)
[2024-03-31] MEDS: ONDANSETRON INJ 4 MG/2 ML VIAL IV PUSH ×2 (01:09→15:58)
[2024-03-31] MEDS: MORPHINE SULFATE (*CRX) 4 MG/ML INJ IV PUSH (01:09)
[2024-03-31 01:44] LABS: Lactic Acid Reflex 1.9 mmol/L (0.7-2.0)
[2024-03-31 01:48] LABS: Alanine Aminotransferase 16 U/L (6-35); Albumin Level 4.3 g/dL (3.5-5.1); Alkaline Phosphatase 75 U/L (38-126); Anion Gap 6 mmol/L (4-12); Aspartate Amino Transferase 21 U/L (14-36); Bilirubin,Total 0.4 mg/dL (0.2-1.3); Blood Urea Nitrogen 15 mg/dL (7-17); Calcium 8.8 mg/dL (8.4-10.2); Carbon Dioxide 26 mmol/L (22-30); Chloride 103 mmol/L (98-107); Estimated CRCL calculation 107 ml/min; Estimated Glomerular Filt Rate > 60; Glucose 126 mg/dL (65-110); Magnesium 1.4 mg/dL (1.6-2.3); Potassium 3.7 mmol/L (3.4-5.0); Sodium 135 mmol/L (137-145)
[2024-03-31 02:10] LABS: Triglycerides 656 mg/dL (<150)
[2024-03-31] MEDS: HYDROmorphone HCL INJ (*CRX) 1 MG/ML SYR IV PUSH ×6 (02:22→20:31)
[2024-03-31] MEDS: MAGNESIUM SULF 2 GM/WATER 50ML 2 GM/50 ML BAG IVPB (02:23)
--- NOTE | 2024-03-31 05:17 | ED.GENADULT ---
HPI - General Adult General Chief complaint: Abdominal Pain Stated complaint: abd pain Time Seen by Provider: 03/30/24 23:54 History of Present Illness HPI narrative: patient is a 48-year-old female who presents emergency department with chief complaint of abdominal pain radiating to her back. Patient reports started around 1600 this evening reports that she has prior history of pancreatitis and reports she has history of pancreatitis secondary to hyperlipidemia and gets plasmapheresis and is treated with insulin drips. Related Data Home Medications Medication Instructions Recorded Confirmed levothyroxine 200 mcg tablet 200 mcg PO DAILY 07/21/23 02/20/24 [id number] 2 cap PO TIDWMEAL 07/22/23 02/20/24 36,000-114,000-180,000 unit capsule,delay rel (Creon) citalopram 40 mg tablet 40 mg PO DAILY 08/31/23 02/20/24 bupropion HCl 150 mg tablet,12 hr 150 mg PO HS 10/09/23 02/20/24 sustained-release Allergies Allergy/AdvReac Type Severity Reaction Status Date / Time adhesive tape Allergy Mild Rash Verified 03/23/24 08:15 [place] pepper [green pepper] Allergy Unknown Hives Verified 03/23/24 08:15 sucralose Allergy Migraine Verified 03/23/24 08:15 [From Splenda (sucralose)] Artificial Sweetners AdvReac Migraine Uncoded 01/31/24 13:32 Review of Systems Review of Systems: A 10 system review of systems was completed on the patient and is negative except for what is stated in the HPI. Nursing and ancillary documentation was reviewed. 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 Nausea Occult blood in stools PCOS (polycystic ovarian syndrome) Port-A-Cath in place Thyroid disorder Surgical History Surgical History History of appendectomy History of conization of cervix History of dilatation and curettage History of endometrial ablation History of exploratory laparotomy History of loop electrical excision procedure (LEEP) History of partial hysterectomy History of tonsillectomy History of tubal ligation History of wisdom tooth extraction Family History Family History Father Alcohol abuse Hypercholesteremia Hypertension Family history of alcoholism Family history of cardiovascular disease Diabetes mellitus Mother Hypercholesteremia Hypothyroid Cerebrovascular accident Family history of cardiovascular disease Diabetes mellitus Grandparent Skin cancer Colon cancer Heart disease Hypothyroid Cerebrovascular accident Sibling Autoimmune disorder Hypothyroid Kidney disorder Hypertension Diabetes mellitus Mother Family history of diabetes mellitus in first degree relative Family history of thyroid disease Father Family history of diabetes mellitus in first degree relative Patient's father is Other Family history of kidney disease Social History Social History Social History: She smokes a pack a day for the past 30 years. No alcohol or drug use. She has 2 dogs and a cat at home. Surrogate medical decision maker: José Miguel Jones, spouse. Code status: Full Smoking packs per day: 1 Smoking cigarettes per day: 20.0 Years smoked: 32 Smoking pack-years: 32.00 Smoking status: Current every day smoker Second hand tobacco smoke exposure: No Alcohol intake: never Drinks per week: 0 Substance use: never Substance use type: does not use Do You Feel Safe in your Home?: Yes Lack of Transportation: No Lack of Food: Never True Current Housing: I Have Housing Concerned About Future Housing: No Difficulty Paying Gas/Electric Bills: No Difficulty Paying for Meds: No Currently Unemployed: No Education: Associate Degree Difficulty w/ Childcare or Family Care: No Living arrangements: with family Spiritual care concerns: No Exam Narrative: GENERAL: Well-appearing, well-nourished, and in no acute distress. HEAD: Normocephalic, atraumatic. EYES: PERRLA and EOMI. ENT: Nares clear, no rhinorrhea or epistaxis. Mucous membranes moist. NECK: Supple. CHEST: Clear to auscultation. No respiratory distress. HEART: Regular rate and rhythm. No murmur heard. Normal peripheral pulses. ABDOMEN: Soft, nontender, nondistended, normal active bowel sounds. EXTREMITIES: Normal range of motion. No edema. SKIN: Warm, dry, no rash. NEURO: No focal deficits. Alert and oriented x3. PSYCH: Normal mood and affect. Course Vital Signs Vital signs: Vital Signs Temperature 36.0 C L 03/30/24 19:50 Pulse Rate 95 03/30/24 19:50 Respiratory Rate 15 03/30/24 19:50 Blood Pressure 131/72 03/30/24 19:50 Pulse Oximetry 99 03/30/24 19:50 Oxygen Delivery Room Air 03/30/24 19:50 Temperature 36.0 C L 03/30/24 19:50 Pulse Rate 88 03/31/24 02:45 Respiratory Rate 13 03/31/24 02:45 Blood Pressure 115/65 03/31/24 02:45 Pulse Oximetry 91 03/31/24 02:45 Oxygen Delivery Room Air 03/30/24 19:50 Medical Decision Making MDM Narrative Medical decision making narrative: patient was hydrated in the emergency department treated with IV pain medications triglycerides came back at 656 This time the levels are below 1000 and are close to the goals at this time nephrology recommended just symptomatic treatment and hospitalist admission at this time the patient does not require insulin drip or plasmapheresis. Vital Signs Vital Signs: Vital Signs Temperature 36.0 C L 03/30/24 19:50 Pulse Rate 95 03/30/24 19:50 Respiratory Rate 15 03/30/24 19:50 Blood Pressure 131/72 03/30/24 19:50 Pulse Oximetry 99 03/30/24 19:50 Oxygen Delivery Room Air 03/30/24 19:50 Temperature 36.0 C L 03/30/24 19:50 Pulse Rate 88 03/31/24 02:45 Respiratory Rate 13 03/31/24 02:45 Blood Pressure 115/65 03/31/24 02:45 Pulse Oximetry 91 03/31/24 02:45 Oxygen Delivery Room Air 03/30/24 19:50 Lab Data 03/31/24 00:09 03/31/24 01:22 Labs: Lab Results 03/30/24 03/30/24 03/30/24 Range/Units 22:43 23:00 23:54 WBC (4.5-10.0) K/mm3 RBC (4.2-5.4) M/mm3 Hgb (12.0-15.0) g/dL Hct (37.0-47.0) % MCV (80-100) fl MCH (26-34) pg MCHC (32-36) g/dl RDW (11.5-14.5) % Plt Count (150-375) k/mm3 MPV (7.4-10.4) fl Immature Gran % (Auto) (0-0.5) % Neut % (Auto) (45.5-73.1) % Lymph % (Auto) (18.3-44.2) % [place] % (Auto) (2.6-8.5) % Eos % (Auto) (0-4.4) % Baso % (Auto) (0.2-1.2) % Lymph # (Auto) (0.9-3.2) K/mm3 [place] # (Auto) (0.1-0.6) K/mm3 Eos # (Auto) (0-0.3) K/mm3 Baso # (Auto) (0.0-0.1) K/mm3 Abs Immat Gran (auto) (0.00-0.031) K/mm3 Absolute Neuts (auto) (1.3-6.7) K/mm3 Absolute Nucleated RBC (0.0-0.012) K/mm3 Nucleated RBC % (0.0-0.2) % Sodium (137-145) mmol/L Potassium (3.4-5.0) mmol/L Chloride (98-107) mmol/L Carbon Dioxide (22-30) mmol/L Anion Gap (4-12) mmol/L BUN (7-17) mg/dL Creatinine (0.7-1.0) mg/dL Estim Creat Clear Calc ml/min Estimated GFR (59 - ) Glucose (65-110) mg/dL POC Capillary Glucose 65 (65-105) mg/dl Lactic Acid (0.7-2.0) mmol/L Calcium (8.4-10.2) mg/dL Magnesium (1.6-2.3) mg/dL Total Bilirubin (0.2-1.3) mg/dL AST (14-36) U/L ALT (6-35) U/L Alkaline Phosphatase (38-126) U/L Total Protein (6.3-8.2) g/dL Albumin (3.5-5.1) g/dL Triglycerides (<150) mg/dL Urine Color Yellow (Yellow) Urine Appearance Clear (Clear) Urine pH 6.0 (5.0-9.0) Ur Specific [place] 1.021 (1.001-1.035) Urine Protein Negative (Negative) mg/dL Urine Glucose (UA) Negative (Negative) mg/dL Urine Ketones Negative (Negative) mg/dL Ur Blood (Man) Negative (Negative) Urine Nitrate Negative (Negative) Urine Bilirubin Negative (Negative) Urine Urobilinogen 1.0 (<2.0) mg/dL Leukocyte Esterase Rfl Negative (Negative) STEPHEN/UL POC Urine HCG, Qual Negative (Negative) 03/31/24 03/31/24 Range/Units 00:09 01:22 WBC 10.7 H (4.5-10.0) K/mm3 RBC 4.37 (4.2-5.4) M/mm3 Hgb 12.6 (12.0-15.0) g/dL Hct 38.9 (37.0-47.0) % MCV 89.0 (80-100) fl MCH 28.8 (26-34) pg MCHC 32.4 (32-36) g/dl RDW 15.7 H (11.5-14.5) % Plt Count 323 (150-375) k/mm3 MPV 9.1 (7.4-10.4) fl Immature Gran % (Auto) 2.0 H (0-0.5) % Neut % (Auto) 58.8 (45.5-73.1) % Lymph % (Auto) 32.6 (18.3-44.2) % [place] % (Auto) 4.8 (2.6-8.5) % Eos % (Auto) 1.2 (0-4.4) % Baso % (Auto) 0.6 (0.2-1.2) % Lymph # (Auto) 3.48 H (0.9-3.2) K/mm3 [place] # (Auto) 0.5 (0.1-0.6) K/mm3 Eos # (Auto) 0.1 (0-0.3) K/mm3 Baso # (Auto) 0.1 (0.0-0.1) K/mm3 Abs Immat Gran (auto) 0.21 H (0.00-0.031) K/mm3 Absolute Neuts (auto) 6.3 (1.3-6.7) K/mm3 Absolute Nucleated RBC 0.000 (0.0-0.012) K/mm3 Nucleated RBC % 0.0 (0.0-0.2) % Sodium 135 L (137-145) mmol/L Potassium 3.7 (3.4-5.0) mmol/L Chloride 103 (98-107) mmol/L Carbon Dioxide 26 (22-30) mmol/L Anion Gap 6 (4-12) mmol/L BUN 15 (7-17) mg/dL Creatinine 0.60 L (0.7-1.0) mg/dL Estim Creat Clear Calc 107 ml/min Estimated GFR > 60 (59 - ) Glucose 126 H (65-110) mg/dL POC Capillary Glucose (65-105) mg/dl Lactic Acid 1.9 (0.7-2.0) mmol/L Calcium 8.8 (8.4-10.2) mg/dL Magnesium 1.4 L (1.6-2.3) mg/dL Total Bilirubin 0.4 (0.2-1.3) mg/dL AST 21 (14-36) U/L ALT 16 (6-35) U/L Alkaline Phosphatase 75 (38-126) U/L Total Protein 7.0 (6.3-8.2) g/dL Albumin 4.3 (3.5-5.1) g/dL Triglycerides 656 H (<150) mg/dL Urine Color (Yellow) Urine Appearance (Clear) Urine pH (5.0-9.0) Ur Specific [place] (1.001-1.035) Urine Protein (Negative) mg/dL Urine Glucose (UA) (Negative) mg/dL Urine Ketones (Negative) mg/dL Ur Blood (Man) (Negative) Urine Nitrate (Negative) Urine Bilirubin (Negative) Urine Urobilinogen (<2.0) mg/dL Leukocyte Esterase Rfl (Negative) STEPHEN/UL POC Urine HCG, Qual (Negative) Discharge Plan Discharge Clinical Impression: Acute on chronic pancreatitis Patient Disposition: Still a Patient Condition: Stable Instructions: Antibiotic Form Prescriptions: No Action metformin 500 mg tablet 1,000 mg PO BID Qty: 180 1RF Rx Instructions: with morning & evening meals celecoxib [Celebrex] 200 mg capsule 200 mg PO DAILY Qty: 90 0RF pantoprazole [Protonix] 40 mg tablet,delayed release (DR/EC) 40 mg PO BID Qty: 30 0RF levothyroxine 200 mcg tablet 200 mcg PO DAILY Creon 36,000-114,000- 180,000 unit capsule,delayed release(DR/EC) 2 cap PO TIDWMEAL Rx Instructions: Take 2 capsules with meals and 1 capsule with any snacks. aspirin 81 mg Tablet,Delayed Release (Dr/Ec) 81 mg PO QAM Qty: 30 0RF citalopram 40 mg tablet 40 mg PO DAILY Rx Instructions: TAKE 1 TABLET BY MOUTH EVERY DAY bupropion HCl 150 mg tablet sustained-release 12 hr 150 mg PO HS fenofibrate 160 mg Tablet 160 mg PO DAILY 30 Days Qty: 30 1RF ondansetron 4 mg tablet,disintegrating 4 mg PO Q8H PRN (Reason: nausea and vomiting) Qty: 10 0RF ondansetron 4 mg tablet,disintegrating 4 mg PO Q8H PRN (Reason: nausea and vomiting) Qty: 30 0RF Brilinta 90 mg tablet 90 mg PO BID Qty: 180 0RF (DME) pen needle, diabetic [BD Ultra-Fine Diandra Pen Needle] 32 gauge x 5/32 needle See Rx Instructions .ROUTE .MEDSUPPLY Qty: 1200 12RF Rx Instructions: 4 times daily (DME) insulin syringe-needle U-100 [BD Insulin Syringe Ultra-Fine] 0.3 mL 31 gauge x 5/16 syringe See Rx Instructions .ROUTE .MEDSUPPLY Qty: 100 12RF Rx Instructions: 4 times a day trazodone 100 mg tablet 200 mg PO HS Qty: 180 1RF atorvastatin 80 mg tablet 80 mg PO HS Qty: 90 1RF lorazepam 1 mg tablet 1 mg PO QHS PRN (Reason: sleep) Qty: 90 0RF Follow-up/Referrals: Jose Zuniga APRN [Primary Care Provider] - Time of Disposition: 07:01
[2024-03-31] MEDS: SODIUM CHLORIDE 0.9% IV 1,000 ML 125 ML IV CONT ×3 (09:00→23:57)
[2024-03-31] MEDS: PANTOPRAZOLE SODIUM IV 40 MG VIAL IV PUSH ×2 (09:00→20:31)
--- NOTE | 2024-03-31 09:09 | ADMGEN ---
This patient, Casandra Jones, was admitted to [facility] Surg Room 302-01. Patient/family oriented to hospital policies and general routines including ID bracelet, bed and alarms, visiting hours, pain management, procedures, bathroom and other care routines, personal items, smoking policy, room service/diet, and visiting hours. Information on how to activate the Rapid Response Team has been discussed. Patient/Family are encouraged to report perceived risks to care and to ask questions if they do not understand what they are told or what they should do.
[2024-03-31] MEDS: diphenhydrAMINE HCl INJ 50 MG/ML VIAL 25 MG IV PUSH ×2 (10:04→20:43)
[2024-03-31 10:28] LABS: Lipase 104 U/L (23-300)
[2024-03-31 11:31] LABS: Glucose Point of Care 104 mg/dl (65-105)
--- NOTE | 2024-03-31 14:35 | P.HP_ITS ---
H&P: HPI History of Present Illness Date/Time: 03/31/24 14:35 Chief Complaint: Abdominal pain Narrative: This is a 48-year-old female who presents to the ED with complaints of abdominal pain radiating to the back. Started about 4:00 p.m. yesterday evening. She has prior history of pancreatitis related to hyperlipidemia. She need treatment with plasmapheresis and insulin drips in the past. On ED evaluation her vitals were stable. Laboratory evaluation revealed WBC of 10.7 hemoglobin of 12.6 electrolytes and came panel 100 remarkable. Urinalysis was negative for infection. Triglyceride was at 656. Lactic acid was normal. Lipase level came back at normal 104. Magnesium low at 1.4. CT abdomen pelvis was performed which showed no significant abnormalities. She is admitted in the setting for further treatment. Review of Systems Review of Systems: - CONSTITUTIONAL: Denies weight loss, fe mahsa and chills. - HEENT: Denies changes in vision and he aring - RESPIRATORY: Denies SOB and cough. - CV: Denies palpitations and CP. - GI: Reports abdominal pain, nausea, v omiting and denies diarrhea. - : Denies dysuria and urinary frequen cy. - MSK: Denies myalgia and joint pain. - SKIN: Denies rash and pruritus. - NEUROLOGICAL: Denies headache and sync ope. - PSYCHIATRIC: Denies recent changes in mood. Denies anxiety and depression. 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 Nausea Occult blood in stools PCOS (polycystic ovarian syndrome) Port-A-Cath in place Thyroid disorder Surgical History Surgical History History of appendectomy History of conization of cervix History of dilatation and curettage History of endometrial ablation History of exploratory laparotomy History of loop electrical excision procedure (LEEP) History of partial hysterectomy History of tonsillectomy History of tubal ligation History of wisdom tooth extraction Family History Family History Father Alcohol abuse Hypercholesteremia Hypertension Family history of alcoholism Family history of cardiovascular disease Diabetes mellitus Mother Hypercholesteremia Hypothyroid Cerebrovascular accident Family history of cardiovascular disease Diabetes mellitus Grandparent Skin cancer Colon cancer Heart disease Hypothyroid Cerebrovascular accident Sibling Autoimmune disorder Hypothyroid Kidney disorder Hypertension Diabetes mellitus Mother Family history of diabetes mellitus in first degree relative Family history of thyroid disease Father Family history of diabetes mellitus in first degree relative Patient's father is Other Family history of kidney disease Social History Social History Social History: She smokes a pack a day for the past 30 years. No alcohol or drug use. She has 2 dogs and a cat at home. Surrogate medical decision maker: José Miguel Jones, spouse. Code status: Full Smoking packs per day: 1 Smoking cigarettes per day: 20.0 Years smoked: 32 Smoking pack-years: 32.00 Smoking status: Current every day smoker Second hand tobacco smoke exposure: No Alcohol intake: never Drinks per week: 0 Substance use: never Substance use type: does not use Do You Feel Safe in your Home?: Yes Lack of Transportation: No Lack of Food: Never True Current Housing: I Have Housing Concerned About Future Housing: No Difficulty Paying Gas/Electric Bills: No Difficulty Paying for Meds: No Currently Unemployed: No Education: Associate Degree Difficulty w/ Childcare or Family Care: No Living arrangements: with family Spiritual care concerns: No Meds Home Medications and Allergies Home Medications Medication Instructions Recorded Confirmed Type metformin 500 mg tablet 1,000 mg PO BID #180 tabs 12/19/22 03/31/24 Rx levothyroxine 200 mcg tablet 200 mcg PO DAILY 07/21/23 03/31/24 History mrnrjt-[id number]-[id number] 2 cap PO TIDWMEAL 07/22/23 03/31/24 History 36,000-114,000-180,000 unit capsule,delay rel (Creon) aspirin 81 mg tablet,delayed 81 mg PO QAM #30 tabs 07/25/23 03/31/24 Rx release pantoprazole 40 mg tablet,delayed 40 mg PO BID #30 tabs 08/22/23 03/31/24 Rx release (Protonix) citalopram 40 mg tablet 40 mg PO DAILY 08/31/23 03/31/24 History ticagrelor 90 mg tablet (Brilinta) 90 mg PO BID #180 tabs 10/03/23 03/31/24 Rx bupropion HCl 150 mg tablet,12 hr 150 mg PO HS 10/09/23 03/31/24 History sustained-release pen needle, diabetic 32 gauge x #1,200 ea 11/14/23 03/31/24 Rx 5/32 (BD Ultra-Fine Diandra Pen Needle) insulin syringe-needle U-100 0.3 #100 ea 11/29/23 03/31/24 Rx mL 31 gauge x 5/16 (BD Insulin Syringe Ultra-Fine) trazodone 100 mg tablet 200 mg PO HS #180 tabs 12/26/23 03/31/24 Rx atorvastatin 80 mg tablet 80 mg PO HS #90 tabs 02/12/24 03/31/24 Rx fenofibrate 160 mg tablet 160 mg PO DAILY 30 days #30 tabs 02/27/24 03/31/24 Rx ondansetron 4 mg disintegrating 4 mg PO Q8H PRN nausea and 02/27/24 03/31/24 Rx tablet vomiting #10 tabs lorazepam 1 mg tablet 1 mg PO QHS PRN sleep #90 tabs 03/27/24 03/31/24 Rx insulin aspart U-100 100 unit/mL See Rx Instructions .Route .COMPLEX 03/31/24 03/31/24 History subcutaneous solution (Novolog U-100 Insulin aspart) metoprolol succinate 25 mg 12.5 mg PO DAILY 03/31/24 03/31/24 History tablet,extended release 24 hr Allergies Allergy/AdvReac Type Severity Reaction Status Date / Time adhesive tape Allergy Mild Rash Verified 03/31/24 07:08 [place] pepper [green pepper] Allergy Unknown Hives Verified 03/31/24 07:08 sucralose Allergy Migraine Verified 03/31/24 07:08 [From Splenda (sucralose)] Artificial Sweetners AdvReac Migraine Uncoded 03/31/24 07:08 Vital Signs Vital Signs - 24 hr 03/30/24 19:50 03/30/24 23:39 03/30/24 23:40 Temperature 96.8 F L Pulse Rate 95 Respiratory Rate 15 Blood Pressure 131/72 130/70 Pulse Oximetry 99 97 97 Oxygen Delivery Room Air 03/30/24 23:41 03/30/24 23:45 03/30/24 23:47 Temperature Pulse Rate Respiratory Rate Blood Pressure 122/69 Pulse Oximetry 98 96 98 Oxygen Delivery 03/31/24 00:00 03/31/24 00:15 03/31/24 00:30 Temperature Pulse Rate Respiratory Rate Blood Pressure Pulse Oximetry 97 97 96 Oxygen Delivery 03/31/24 00:45 03/31/24 01:00 03/31/24 01:15 Temperature Pulse Rate Respiratory Rate Blood Pressure Pulse Oximetry 96 98 97 Oxygen Delivery 03/31/24 01:30 03/31/24 01:45 03/31/24 02:22 Temperature Pulse Rate Respiratory Rate Blood Pressure 116/82 Pulse Oximetry 98 98 100 Oxygen Delivery 03/31/24 02:23 03/31/24 02:30 03/31/24 02:32 Temperature Pulse Rate Respiratory Rate Blood Pressure 117/61 Pulse Oximetry 100 99 97 Oxygen Delivery 03/31/24 02:45 03/31/24 07:15 03/31/24 08:08 Temperature 97.5 F L Pulse Rate 88 76 70 Respiratory Rate 13 16 17 Blood Pressure 115/65 106/65 100/57 L Pulse Oximetry 91 97 99 Oxygen Delivery 03/31/24 10:42 Temperature Pulse Rate Respiratory Rate Blood Pressure Pulse Oximetry Oxygen Delivery Room Air Exam Narrative: GENERAL: Well-appearing, well-nourished, and in mild distress due to pain. HEAD: Normocephalic, atraumatic. EYES: PERRLA and EOMI. ENT: Nares clear, no rhinorrhea or epistaxis. Mucous membranes moist. NECK: Supple. CHEST: Clear to auscultation. No respiratory distress. HEART: Regular rate and rhythm. No murmur heard. Normal peripheral pulses. ABDOMEN: Soft, epigastric tenderness, nondistended, normal active bowel sounds. EXTREMITIES: Normal range of motion. No edema. SKIN: Warm, dry, no rash. NEURO: No focal deficits. Alert and oriented x3. PSYCH: Normal mood and affect. H&P: Results Labs Labs: Short CBC 03/31/24 Range/Units 00:09 WBC 10.7 H (4.5-10.0) K/mm3 Hgb 12.6 (12.0-15.0) g/dL Hct 38.9 (37.0-47.0) % Plt Count 323 (150-375) k/mm3 BMP 03/31/24 01:22 Sodium 135 L Potassium 3.7 Chloride 103 Carbon Dioxide 26 BUN 15 Creatinine 0.60 L Glucose 126 H Calcium 8.8 Liver Function 03/31/24 Range/Units 01:22 Total Bilirubin 0.4 (0.2-1.3) mg/dL AST 21 (14-36) U/L ALT 16 (6-35) U/L Alkaline Phosphatase 75 (38-126) U/L Albumin 4.3 (3.5-5.1) g/dL Urine 03/30/24 Range/Units 22:43 Urine Color Yellow (Yellow) Urine Appearance Clear (Clear) Urine pH 6.0 (5.0-9.0) Ur Specific [place] 1.021 (1.001-1.035) Urine Protein Negative (Negative) mg/dL Urine Glucose (UA) Negative (Negative) mg/dL Assessment and Plan Assessment and plan (1) Acute on chronic pancreatitis: Code(s): K85.90 - Acute pancreatitis without necrosis or infection, unspecified; K86.1 - Other chronic pancreatitis Status: Acute (2) Abdominal pain: Code(s): R10.9 - Unspecified abdominal pain Status: Acute (3) Chronic pancreatitis: Code(s): K86.1 - Other chronic pancreatitis Status: Acute (4) CAD (coronary artery disease): Code(s): I25.10 - Atherosclerotic heart disease of [place] coronary artery without angina pectoris Status: Chronic (5) Hypertriglyceridemia: Code(s): E78.1 - Pure hyperglyceridemia Status: Chronic (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 Status: Acute (7) Hypothyroidism: Qualifiers: 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 Qualified Code(s): E03.8 - Other specified hypothyroidism; E06.3 - Autoimmune thyroiditis Code(s): E03.9 - Hypothyroidism, unspecified Status: Acute (8) GERD (gastroesophageal reflux disease): Qualifiers: Esophagitis presence: esophagitis presence not specified Qualified Code(s): K21.9 - Gastro-esophageal reflux disease without esophagitis Code(s): K21.9 - Gastro-esophageal reflux disease without esophagitis Status: Acute (9) Type 2 diabetes mellitus: Qualifiers: Diabetes mellitus intermediate project manager insulin use: with care home use Diabetes mellitus complication status: without complication Qualified Code(s): E11.9 - Type 2 diabetes mellitus without complications; Z79.4 - halfway (current) use of insulin Code(s): E11.9 - Type 2 diabetes mellitus without complications Status: Acute Plan This is a 48-year-old female who presents to the ED with complaints of abdominal pain radiating to the back. Started about 4:00 p.m. yesterday evening. She has prior history of pancreatitis related to hyperlipidemia. She need treatment with plasmapheresis and insulin drips in the past. On ED evaluation her vitals were stable. Laboratory evaluation revealed WBC of 10.7 hemoglobin of 12.6 electrolytes and came panel 100 remarkable. Urinalysis was negative for infection. Triglyceride was at 656. Lactic acid was normal. Lipase level came back at normal 104. Magnesium low at 1.4. CT abdomen pelvis was performed which showed no significant abnormalities. She is admitted in the setting for further treatment. It is suspected her abdominal pain is related to chronic pancreatitis. NPO bowel rest and pain control with IV pain medication as ordered. History of chylomicronemia syndrome History of chronic pancreatitis GERD Hypertriglyceridemia Insulin-dependent diabetes mellitus on insulin pump will be continued as per protocol Coronary artery disease status post stents in the past Port-A-Cath in place Hypothyroidism DVT prophylaxis Lovenox Code status full code Hospitalist [facility] Advance Care Plan I have confirmed that the patient's Advanced Care Plan is present, code status is documented, or surrogate decision maker is listed in patient medical record.: Yes Medication Reconciliation I have utilized all available resources to obtain, update and review the patients current medications (includes all prescriptions, OTC, herbals, cannabis, and nutritional supplements).: Yes
[2024-03-31 17:51] LABS: Glucose Point of Care 95 mg/dl (65-105)
[2024-03-31] MEDS: buPROPion HCL SR (12 HR) 150 MG TAB PO (20:29)
[2024-03-31] MEDS: traZODone HCL 50 MG TABLET 200 MG PO (20:30)
[2024-03-31] MEDS: TICAGRELOR 90 MG TABLET PO (20:30)
[2024-03-31] MEDS: ATORVASTATIN 40 MG TABLET 80 MG PO (20:30)
[2024-03-31] MEDS: SODIUM CHLORIDE 0.9% INJ 10 ML (20:31)
[2024-03-31] MEDS: LORazepam (*CRX) 1 MG TABLET PO (20:35)
[2024-03-31 21:37] LABS: Glucose Point of Care 103 mg/dl (65-105)
--- NOTE | 2024-03-31 21:38 | PC.NURSE ---
pt spo2 low and 3L NC applied. pt slightly hypotensive. spoke to Corine Abbott, who stated to keep a close eye on patient, recheck BP, and continue IVF at 125 as ordered. PRN narcan ordered in case pt becomes unarousable or if MAP drops below 65
--- NOTE | 2024-03-31 23:23 | PC.NURSE ---
patient sleeping with nasal cannula out of nose. spo2 93% on essentially room air. nasal cannula reapplied to patient, and turned down to 2L from 3L
[2024-04-01] VITALS (10 sets, daily range): BP systolic 92–136; BP diastolic 50–77; PULSE 76–86; RESP 16; TEMP 36.2–36.6; O2SAT 95–98; BMI 32.5
[2024-04-01 00:46] LABS: Glucose Point of Care 95 mg/dl (65-105)
[2024-04-01] MEDS: HYDROmorphone HCL INJ (*CRX) 1 MG/ML SYR IV PUSH ×5 (04:41→20:22)
[2024-04-01] MEDS: LEVOTHYROXINE SODIUM 100 MCG TABLET 200 MCG PO (04:41)
[2024-04-01 06:33] LABS: Glucose Point of Care 92 mg/dl (65-105)
--- NOTE | 2024-04-01 06:34 | PC.NURSE ---
according to patient's insulin pump worksheet, she received 2.238 units of insulin from -
[2024-04-01] MEDS: HOME MEDICATION 1 EACH XX (06:35)
[2024-04-01 06:59] LABS: Basophils Percent Auto 0.5 % (0.2-1.2); Eosinophils Absolute Auto 0.1 K/mm3 (0-0.3); Eosinophils Percent Auto 1.3 % (0-4.4); Hemoglobin 10.8 g/dL (12.0-15.0); Immature Granulocyte Absolute 0.06 K/mm3 (0.00-0.031); Lymphocytes Absolute Auto 1.87 K/mm3 (0.9-3.2); Lymphocytes Percent Auto 29.6 % (18.3-44.2); Mean Corpuscular HGB Conc 30.9 g/dl (32-36); Mean Corpuscular Hemoglobin 28.6 pg (26-34); Mean Corpuscular Volume 92.8 fl (80-100); Mean Platelet Volume 9.1 fl (7.4-10.4); Monocytes Absolute Auto 0.3 K/mm3 (0.1-0.6); Monocytes Percent Auto 5.4 % (2.6-8.5); Neutrophils Absolute Auto 3.9 K/mm3 (1.3-6.7); Neutrophils Percent Auto 62.2 % (45.5-73.1); Platelet Count Result 230 k/mm3 (150-375); Red Blood Count 3.77 M/mm3 (4.2-5.4); Red Cell Distribution Width 15.9 % (11.5-14.5); White Blood Count 6.3 K/mm3 (4.5-10.0)
[2024-04-01 07:14] LABS: Alanine Aminotransferase 12 U/L (6-35); Albumin Level 3.4 g/dL (3.5-5.1); Alkaline Phosphatase 53 U/L (38-126); Anion Gap 0 mmol/L (4-12); Aspartate Amino Transferase 20 U/L (14-36); Bilirubin,Total 0.5 mg/dL (0.2-1.3); Blood Urea Nitrogen 7 mg/dL (7-17); Calcium 7.6 mg/dL (8.4-10.2); Carbon Dioxide 29 mmol/L (22-30); Chloride 107 mmol/L (98-107); Estimated CRCL calculation 107 ml/min; Estimated Glomerular Filt Rate > 60; Glucose 87 mg/dL (65-110); Magnesium 1.7 mg/dL (1.6-2.3); Potassium 3.7 mmol/L (3.4-5.0); Sodium 136 mmol/L (137-145)
[2024-04-01 08:04] LABS: Lipase 44 U/L (23-300)
[2024-04-01] MEDS: SODIUM CHLORIDE 0.9% IV 1,000 ML 70 ML IV CONT ×2 (08:34→22:33)
[2024-04-01 08:57] LABS: Glucose Point of Care 94 mg/dl (65-105)
[2024-04-01] MEDS: TICAGRELOR 90 MG TABLET PO ×2 (09:20→21:31)
[2024-04-01] MEDS: CITALOPRAM HYDROBROMIDE 20 MG TABLET 40 MG PO (09:20)
[2024-04-01] MEDS: FENOFIBRATE 160 MG TABLET PO (09:20)
[2024-04-01] MEDS: METOPROLOL SUCCINATE EXT REL 12.5 MG TABCR PO (09:20)
[2024-04-01] MEDS: ASPIRIN 81 MG ENTERIC TABLET PO (09:20)
[2024-04-01] MEDS: PANTOPRAZOLE SODIUM IV 40 MG VIAL IV PUSH ×2 (09:21→21:30)
[2024-04-01 12:01] LABS: Glucose Point of Care 117 mg/dl (65-105)
--- NOTE | 2024-04-01 15:11 | PC.NURSE ---
This patient, Casandra Jones, was transferred from [[id number]] to [[id number]] on 04/01/24 at 1500.
[2024-04-01] MEDS: diphenhydrAMINE HCl INJ 50 MG/ML VIAL 25 MG IV PUSH (16:08)
[2024-04-01 17:40] LABS: Glucose Point of Care 93 mg/dl (65-105)
--- NOTE | 2024-04-01 20:00 | P.PNIM_ITS ---
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 - Hyperchylomicronemia Status: Acute (6) Hypothyroidism: Qualifiers: 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 Qualified Code(s): E03.8 - Other specified hypothyroidism; E06.3 - Autoimmune thyroiditis Code(s): E03.9 - Hypothyroidism, unspecified Status: Acute (7) Type 2 diabetes mellitus: Qualifiers: Diabetes mellitus fci insulin use: with sail finisher hand use Diabetes mellitus complication status: without complication Qualified Code(s): E11.9 - Type 2 diabetes mellitus without complications; 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 She has prior history of pancreatitis related to hyperlipidemia. She need treatment with plasmapheresis and insulin drips in the past. TG was at 656. Lactic acid was normal. Lipase normal 104. Magnesium low at 1.4. CT abdomen pelvis was performed which showed no significant abnormalities. Suspected her abdominal pain is related to chronic pancreatitis. She was made NPO for bowel rest. Pain control with IV pain medication Continue IV fluids but decrease rate. Repeat lipase level remains normal. Continue Creon. Start diet when pain better. Follow TG levels. Continue fenofibrate and lipitor. Good glycemic control is important TSH normal in April. Continue levothyroxine. Patient remains on insulin pump. A1c 7.7 in January. She is NPO and is monitoring her glucose. Continue insulin pump protocol. Shoulder pain worse related to bedrest and lack of threpay. Will start PT/OT. DVT prophylaxis SCDs Code status full code Subjective Date/time seen: 04/01/24 20:00 Interval history: 48yo female with chylomicronemia syndrome and chronic pancreatitis here for abdominal pain. Assuming care. Chart reviewed. [place] still with significant abd pain. Also has chronic left shoulder pain that she is therapy for that seems to be bothering her more today. She did have a steroid injection to the shoulder recently. No flatus or BMs. Nausea better. She is monitoring her glucose and it remains controlled. Exam Narrative: AF 97.6 136/76 85 16 98% ra Gen - NARD Chest - CTA bilaterally, nml RR. Port-a-cath noted in the left upper chest. CV - RRR S1/S2 Abd - soft, obese, upper abdominal pain without guarding. Ext - No pedal edema. Shoulder ROM limitied. Psych - Nml mood and affect Skin - Warm and dry Objective Data Vital Signs Vital Signs: Vital Signs - 24 hr 03/31/24 21:15 03/31/24 23:23 04/01/24 00:40 Temperature 98 F 98 F Pulse Rate 88 85 Respiratory Rate 16 16 Blood Pressure 92/58 L 92/56 L Pulse Oximetry 96 93 97 Oxygen Delivery Oxygen Flow Rate 03/31/24 21:38 03/31/24 23:20 03/31/24 21:40 Temperature Pulse Rate Respiratory Rate Blood Pressure Pulse Oximetry 85 L 95 98 Oxygen Delivery Room Air Nasal Cannula Nasal Cannula Oxygen Flow Rate 2 3 03/31/24 23:19 04/01/24 04:25 04/01/24 08:00 Temperature 97.4 F L 97.6 F Pulse Rate 83 86 Respiratory Rate 16 16 Blood Pressure 118/50 L 134/74 Pulse Oximetry 93 98 96 Oxygen Delivery Room Air Oxygen Flow Rate 04/01/24 08:50 04/01/24 09:20 04/01/24 08:44 Temperature Pulse Rate 86 Respiratory Rate Blood Pressure Pulse Oximetry 96 95 Oxygen Delivery Room Air Room Air Oxygen Flow Rate 04/01/24 12:00 04/01/24 15:05 04/01/24 13:45 Temperature 97.8 F 97.6 F Pulse Rate 86 85 84 Respiratory Rate 16 16 16 Blood Pressure 135/72 136/76 Pulse Oximetry 96 98 98 Oxygen Delivery Room Air Oxygen Flow Rate Intake/Output Intake/Output: Intake & Output 03/29/24 03/30/24 03/31/24 04/01/24 23:59 23:59 23:59 23:59 Intake Total 3918.8 1340 Balance 3918.8 1340 Meds/Results Medications: Active Medications Generic Name Dose Route Start Last Admin Trade Name Freq PRN Reason Stop Dose Admin Lipase/Protease/Amylase 6 cap 03/31/24 17:00 04/01/24 16:15 Lipase/Amylase/Protease 12,000 Units Cap PO Not Given TIDWM RAPHAEL Lipase/Protease/Amylase 3 cap 03/31/24 15:24 Lipase/Amylase/Protease 12,000 Units Cap PO PRN PRN WITH SNACKS ONLY Aspirin 81 mg 04/01/24 09:00 04/01/24 09:20 Aspirin 81 Mg Enteric Tablet PO 81 mg QAM RAPHAEL Administration Atorvastatin Calcium 80 mg 03/31/24 21:00 03/31/24 20:30 Atorvastatin 40 Mg Tablet PO 80 mg HS RAPHAEL Administration Bupropion HCl 150 mg 03/31/24 21:00 03/31/24 20:29 Bupropion Hcl Sr (12 Hr) 150 Mg Tab PO 150 mg HS RAPHAEL Administration Citalopram Hydrobromide 40 mg 04/01/24 09:00 04/01/24 09:20 Citalopram Hydrobromide 20 Mg Tablet PO 40 mg DAILY RAPHAEL Administration Dextrose 12.5 gm 03/31/24 10:10 Dextrose 50% 25 Gm/50 Ml Syringe IV PUSH PRN PRN Hypoglycemia Protocol Diphenhydramine HCl 25 mg 03/31/24 09:54 04/01/24 16:08 Diphenhydramine Hcl Inj 50 Mg/Ml Vial IV PUSH 25 mg Q4H PRN Administration Itching Fenofibrate 160 mg 04/01/24 09:00 04/01/24 09:20 Fenofibrate 160 Mg Tablet PO 160 mg DAILY RAPHAEL Administration Glucagon 1 mg 03/31/24 10:10 Glucagon For Inj 1 Mg Vial IM PRN PRN Hypoglycemia Protocol Glucose 15 gm 03/31/24 10:10 Glucose Oral Gel 15 Gm Of Glucse In 37.5 Gm Tube PO PRN PRN Hypoglycemia Protocol Home Med 1 each 04/01/24 06:00 04/01/24 06:35 Home Medication XX 05/01/24 05:59 1 each DAILY@0600 RAPHAEL Administration Hydromorphone HCl 1 mg 03/31/24 07:02 04/01/24 16:09 Hydromorphone Hcl Inj (*Crx) 1 Mg/Ml Syr IV PUSH 1 mg Q4H PRN Administration Pain Rated 7-10 Sodium Chloride 1,000 mls @ 70 mls/hr 03/31/24 07:05 04/01/24 08:34 Normal Saline Iv IV CONT 70 mls/hr .[id number] RAPHAEL Administration Dextrose 1,000 mls @ 100 mls/hr 03/31/24 10:10 Dextrose 5% 1,000 Ml IVPB PRN PRN Hypoglycemia Protocol Levothyroxine Sodium 200 mcg 04/01/24 06:30 04/01/24 04:41 Levothyroxine Sodium 100 Mcg Tablet PO 200 mcg DAILY@0630 RAPHAEL Administration Lorazepam 1 mg 03/31/24 14:45 03/31/24 20:35 Lorazepam (*Crx) 1 Mg Tablet PO 1 mg QHS PRN Administration sleep Metoprolol Succinate 12.5 mg 04/01/24 09:00 04/01/24 09:20 Metoprolol Succinate Ext Rel 12.5 Mg Tabcr PO 12.5 mg DAILY RAPHAEL Administration Naloxone HCl 0.1 mg 03/31/24 21:37 Naloxone Hcl 0.4 Mg/Ml Vial IV PUSH Q5MIN PRN Sedation Ondansetron HCl 4 mg 03/31/24 07:02 03/31/24 15:58 Ondansetron Inj 4 Mg/2 Ml Vial IV PUSH 4 mg Q4H PRN Administration Nausea Pantoprazole Sodium 40 mg 03/31/24 21:00 04/01/24 09:21 Pantoprazole Sodium Iv 40 Mg Vial IV PUSH 40 mg Q12HR RAPHAEL Administration Ticagrelor 90 mg 03/31/24 21:00 04/01/24 09:20 Ticagrelor 90 Mg Tablet PO 90 mg Q12HR RAPHAEL Administration Trazodone HCl 200 mg 03/31/24 21:00 03/31/24 20:30 Trazodone Hcl 50 Mg Tablet PO 200 mg HS RAPHAEL Administration Radiology Results: ITS Impressions Abdomen/Pelvis CT 03/31/24 05:12 Impression: No significant abnormalities seen. Labs Labs: Laboratory Results - last 24 hr 03/31/24 04/01/24 04/01/24 21:26 00:41 06:01 WBC RBC Hgb Hct MCV MCH MCHC RDW Plt Count MPV Immature Gran % (Auto) Neut % (Auto) Lymph % (Auto) [place] % (Auto) Eos % (Auto) Baso % (Auto) Lymph # (Auto) [place] # (Auto) Eos # (Auto) Baso # (Auto) Abs Immat Gran (auto) Absolute Neuts (auto) Absolute Nucleated RBC Nucleated RBC % Sodium Potassium Chloride Carbon Dioxide Anion Gap BUN Creatinine Estim Creat Clear Calc Estimated GFR Glucose POC Capillary Glucose 103 95 Calcium Magnesium Total Bilirubin AST ALT Alkaline Phosphatase Total Protein Albumin Lipase 44 04/01/24 04/01/24 04/01/24 06:04 06:31 08:55 WBC 6.3 RBC 3.77 L Hgb 10.8 L Hct 35.0 L MCV 92.8 MCH 28.6 MCHC 30.9 L RDW 15.9 H Plt Count 230 MPV 9.1 Immature Gran % (Auto) 1.0 H Neut % (Auto) 62.2 Lymph % (Auto) 29.6 [place] % (Auto) 5.4 Eos % (Auto) 1.3 Baso % (Auto) 0.5 Lymph # (Auto) 1.87 [place] # (Auto) 0.3 Eos # (Auto) 0.1 Baso # (Auto) 0.0 Abs Immat Gran (auto) 0.06 H Absolute Neuts (auto) 3.9 Absolute Nucleated RBC 0.000 Nucleated RBC % 0.0 Sodium 136 L Potassium 3.7 Chloride 107 Carbon Dioxide 29 Anion Gap 0 L BUN 7 D Creatinine 0.60 L Estim Creat Clear Calc 107 Estimated GFR > 60 Glucose 87 POC Capillary Glucose 92 94 Calcium 7.6 L Magnesium 1.7 Total Bilirubin 0.5 AST 20 ALT 12 Alkaline Phosphatase 53 Total Protein 6.0 L Albumin 3.4 L Lipase 04/01/24 04/01/24 11:59 17:37 WBC RBC Hgb Hct MCV MCH MCHC RDW Plt Count MPV Immature Gran % (Auto) Neut % (Auto) Lymph % (Auto) [place] % (Auto) Eos % (Auto) Baso % (Auto) Lymph # (Auto) [place] # (Auto) Eos # (Auto) Baso # (Auto) Abs Immat Gran (auto) Absolute Neuts (auto) Absolute Nucleated RBC Nucleated RBC % Sodium Potassium Chloride Carbon Dioxide Anion Gap BUN Creatinine Estim Creat Clear Calc Estimated GFR Glucose POC Capillary Glucose 117 H 93 Calcium Magnesium Total Bilirubin AST ALT Alkaline Phosphatase Total Protein Albumin Lipase
[2024-04-01] MEDS: ONDANSETRON INJ 4 MG/2 ML VIAL IV PUSH (20:23)
[2024-04-01] MEDS: buPROPion HCL SR (12 HR) 150 MG TAB PO (21:30)
[2024-04-01] MEDS: ATORVASTATIN 40 MG TABLET 80 MG PO (21:31)
[2024-04-01] MEDS: traZODone HCL 50 MG TABLET 200 MG PO (21:32)
[2024-04-02] VITALS (9 sets, daily range): BP systolic 102–124; BP diastolic 59–70; PULSE 68–89; RESP 16–20; TEMP 36.2–36.9; O2SAT 92–100; BMI 31.4
[2024-04-02] MEDS: ONDANSETRON INJ 4 MG/2 ML VIAL IV PUSH ×6 (00:03→20:32)
[2024-04-02] MEDS: HYDROmorphone HCL INJ (*CRX) 1 MG/ML SYR IV PUSH ×6 (00:03→20:32)
[2024-04-02 00:16] LABS: Glucose Point of Care 93 mg/dl (65-105)
[2024-04-02 04:37] LABS: Glucose Point of Care 89 mg/dl (65-105)
[2024-04-02 05:06] LABS: Hematocrit 35.8 % (37.0-47.0); Hemoglobin 11.8 g/dL (12.0-15.0); Mean Corpuscular Hemoglobin 29.3 pg (26-34); Mean Corpuscular Volume 88.8 fl (80-100); Platelet Count Result 234 k/mm3 (150-375); Red Blood Count 4.03 M/mm3 (4.2-5.4); Red Cell Distribution Width 15.3 % (11.5-14.5); White Blood Count 6.3 K/mm3 (4.5-10.0)
[2024-04-02 05:29] LABS: Alanine Aminotransferase 13 U/L (6-35); Albumin Level 4.1 g/dL (3.5-5.1); Alkaline Phosphatase 67 U/L (38-126); Anion Gap 3 mmol/L (4-12); Aspartate Amino Transferase 23 U/L (14-36); Bilirubin,Total 0.6 mg/dL (0.2-1.3); Blood Urea Nitrogen 5 mg/dL (7-17); Calcium 8.7 mg/dL (8.4-10.2); Carbon Dioxide 28 mmol/L (22-30); Chloride 105 mmol/L (98-107); Estimated CRCL calculation 107 ml/min; Estimated Glomerular Filt Rate > 60; Glucose 87 mg/dL (65-110); Potassium 3.7 mmol/L (3.4-5.0); Sodium 136 mmol/L (137-145); Triglycerides 596 mg/dL (<150)
[2024-04-02] MEDS: LEVOTHYROXINE SODIUM 100 MCG TABLET 200 MCG PO (07:29)
[2024-04-02] MEDS: PANTOPRAZOLE SODIUM IV 40 MG VIAL IV PUSH ×2 (09:27→20:32)
[2024-04-02] MEDS: TICAGRELOR 90 MG TABLET PO ×2 (09:28→20:31)
[2024-04-02] MEDS: METOPROLOL SUCCINATE EXT REL 12.5 MG TABCR PO (09:29)
[2024-04-02] MEDS: CITALOPRAM HYDROBROMIDE 20 MG TABLET 40 MG PO (09:29)
[2024-04-02] MEDS: ASPIRIN 81 MG ENTERIC TABLET PO (09:37)
[2024-04-02] MEDS: HOME MEDICATION 1 EACH XX (09:37)
[2024-04-02] MEDS: FENOFIBRATE 160 MG TABLET PO (09:37)
[2024-04-02] MEDS: DEXTROSE 5%/0.9% SOD CHL 1,000 ML 70 ML IV CONT (10:47)
--- NOTE | 2024-04-02 10:55 | PM.IMPN ---
Progress Note: A&P Assessment and Plan (1) Acute on chronic pancreatitis: Code(s): K85.90 - Acute pancreatitis without necrosis or infection, unspecified; K86.1 - Other chronic pancreatitis Status: Acute Assessment and Plan: Patient presents to the ED with complaints of abdominal pain radiating to the back. She has prior history of pancreatitis related to hyperlipidemia. She has needed treatment with plasmapheresis and insulin drips in the past. TG was at 656. Lactic acid was normal. Lipase normal. Magnesium low at 1.[address] abdomen pelvis showed no significant abnormalities. Suspected her abdominal pain is related to chronic pancreatitis. She was made NPO for bowel rest. Pain control with IV pain medication Continue IV fluids but add dextrose. Repeat lipase level remained normal. Repeat TG level trending down. Not interested in starting diet Continue Creon. Start diet when pain better. (2) Abdominal pain: Code(s): R10.9 - Unspecified abdominal pain Status: Acute Assessment and Plan: As above (3) CAD (coronary artery disease): Code(s): I25.10 - Atherosclerotic heart disease of [place] coronary artery without angina pectoris Status: Chronic Assessment and Plan: She has a history of coronary disease and undergoing a multivessel stent procedure down in [facility] in June 2023. Continue ASA, Brilinta and Lipitor. (4) Hypertriglyceridemia: Code(s): E78.1 - Pure hyperglyceridemia Status: Chronic Assessment and Plan: Stable. TG levels remaining reasonable. Continue fenofibrate and lipitor. Good glycemic control is important . 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 Continue levothyroxine. 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 A1c 7.7 in January. She is NPO and is monitoring her glucose. Glucose levels trending down so will add dextrose Continue insulin pump protocol. (8) Shoulder pain: Code(s): M25.519 - Pain in unspecified shoulder Status: Acute Assessment and Plan: Shoulder pain worse related to bedrest and lack of therapy. Continue PT/OT. Plan DVT prophylaxis SCDs Code status full code Subjective Date/time seen: 04/02/24 10:55 Interval history: 48yo female with chylomicronemia syndrome and chronic pancreatitis here for abdominal pain. Still with considerable abdominal pain. Requesting an increase in her pain regiment. No flatus. No BMs. Still with nausea. No CP, SOB or cough. No appetite and does not want to start diet yet. Still with left shoulder pain with improvement with heating pad Exam Narrative: AF 98.5 103/59 73 18 97% ra Gen - NARD Chest - CTA bilaterally, nml RR. Port-a-cath noted in the left upper chest. CV - RRR S1/S2 Abd - soft, obese, mild diffuse pain worse in the LUQ. No guarding. Ext - No pedal edema. Shoulder ROM limitied. Psych - Nml mood and affect Skin - Warm and dry Objective Data Vital Signs Vital Signs: Vital Signs - 24 hr 04/01/24 12:00 04/01/24 15:05 04/01/24 13:45 Temperature 97.8 F 97.6 F Pulse Rate 86 85 84 Respiratory Rate 16 16 16 Blood Pressure 135/72 136/76 Pulse Oximetry 96 98 98 Oxygen Delivery Room Air 04/01/24 18:58 04/02/24 00:02 04/02/24 04:05 Temperature 97.1 F L 97.5 F L 97.1 F L Pulse Rate 76 72 75 Respiratory Rate 16 16 18 Blood Pressure 129/77 109/64 124/61 Pulse Oximetry 97 92 95 Oxygen Delivery 04/02/24 07:30 04/02/24 07:30 Temperature 98.5 F Pulse Rate 73 Respiratory Rate 18 Blood Pressure 103/59 L Pulse Oximetry 97 Oxygen Delivery Room Air Intake/Output Intake/Output: Intake & Output 03/30/24 03/31/24 04/01/24 04/02/24 23:59 23:59 23:59 23:59 Intake Total 3918.8 2240 50 Balance 3918.8 2240 50 Meds/Results Medications: Active Medications Generic Name Dose Route Start Last Admin Trade Name Freq PRN Reason Stop Dose Admin Lipase/Protease/Amylase 6 cap 03/31/24 17:00 04/02/24 08:48 Lipase/Amylase/Protease 12,000 Units Cap PO Not Given TIDWM RAPHAEL Lipase/Protease/Amylase 3 cap 03/31/24 15:24 Lipase/Amylase/Protease 12,000 Units Cap PO PRN PRN WITH SNACKS ONLY Aspirin 81 mg 04/01/24 09:00 04/02/24 09:37 Aspirin 81 Mg Enteric Tablet PO 81 mg QAM RAPHAEL Administration Atorvastatin Calcium 80 mg 03/31/24 21:00 04/01/24 21:31 Atorvastatin 40 Mg Tablet PO 80 mg HS RAPHAEL Administration Bupropion HCl 150 mg 03/31/24 21:00 04/01/24 21:30 Bupropion Hcl Sr (12 Hr) 150 Mg Tab PO 150 mg HS RAPHAEL Administration Citalopram Hydrobromide 40 mg 04/01/24 09:00 04/02/24 09:29 Citalopram Hydrobromide 20 Mg Tablet PO 40 mg DAILY RAPHAEL Administration Dextrose 12.5 gm 03/31/24 10:10 Dextrose 50% 25 Gm/50 Ml Syringe IV PUSH PRN PRN Hypoglycemia Protocol Diphenhydramine HCl 25 mg 03/31/24 09:54 04/01/24 16:08 Diphenhydramine Hcl Inj 50 Mg/Ml Vial IV PUSH 25 mg Q4H PRN Administration Itching Fenofibrate 160 mg 04/01/24 09:00 04/02/24 09:37 Fenofibrate 160 Mg Tablet PO 160 mg DAILY RAPHAEL Administration Glucagon 1 mg 03/31/24 10:10 Glucagon For Inj 1 Mg Vial IM PRN PRN Hypoglycemia Protocol Glucose 15 gm 03/31/24 10:10 Glucose Oral Gel 15 Gm Of Glucse In 37.5 Gm Tube PO PRN PRN Hypoglycemia Protocol Home Med 1 each 04/01/24 06:00 04/02/24 09:37 Home Medication XX 05/01/24 05:59 1 each DAILY@0600 RAPHAEL Administration Hydromorphone HCl 1 mg 03/31/24 07:02 04/02/24 07:51 Hydromorphone Hcl Inj (*Crx) 1 Mg/Ml Syr IV PUSH 1 mg Q4H PRN Administration Pain Rated 7-10 Dextrose 1,000 mls @ 100 mls/hr 03/31/24 10:10 Dextrose 5% 1,000 Ml IVPB PRN PRN Hypoglycemia Protocol Dextrose/Sodium Chloride 1,000 mls @ 70 mls/hr 04/02/24 10:15 04/02/24 10:47 Dextrose 5% Sodium Chloride 0.9% IV CONT 70 mls/hr .[id number] RAPHAEL Administration Levothyroxine Sodium 200 mcg 04/01/24 06:30 04/02/24 07:29 Levothyroxine Sodium 100 Mcg Tablet PO 200 mcg DAILY@0630 RAPHAEL Administration Lorazepam 1 mg 03/31/24 14:45 03/31/24 20:35 Lorazepam (*Crx) 1 Mg Tablet PO 1 mg QHS PRN Administration sleep Metoprolol Succinate 12.5 mg 04/01/24 09:00 04/02/24 09:29 Metoprolol Succinate Ext Rel 12.5 Mg Tabcr PO 12.5 mg DAILY RAPHAEL Administration Naloxone HCl 0.1 mg 03/31/24 21:37 Naloxone Hcl 0.4 Mg/Ml Vial IV PUSH Q5MIN PRN Sedation Ondansetron HCl 4 mg 03/31/24 07:02 04/02/24 07:56 Ondansetron Inj 4 Mg/2 Ml Vial IV PUSH 4 mg Q4H PRN Administration Nausea Pantoprazole Sodium 40 mg 03/31/24 21:00 04/02/24 09:27 Pantoprazole Sodium Iv 40 Mg Vial IV PUSH 40 mg Q12HR RAPHAEL Administration Ticagrelor 90 mg 03/31/24 21:00 04/02/24 09:28 Ticagrelor 90 Mg Tablet PO 90 mg Q12HR RAPHAEL Administration Trazodone HCl 200 mg 03/31/24 21:00 04/01/24 21:32 Trazodone Hcl 50 Mg Tablet PO 200 mg HS RAPHAEL Administration Radiology Results: ITS Impressions Abdomen/Pelvis CT 03/31/24 05:12 Impression: No significant abnormalities seen. Labs Labs: Laboratory Results - last 24 hr 04/01/24 04/01/24 04/02/24 11:59 17:37 00:08 WBC RBC Hgb Hct MCV MCH MCHC RDW Plt Count MPV Sodium Potassium Chloride Carbon Dioxide Anion Gap BUN Creatinine Estim Creat Clear Calc Estimated GFR Glucose POC Capillary Glucose 117 H 93 93 Calcium Total Bilirubin AST ALT Alkaline Phosphatase Total Protein Albumin Triglycerides 04/02/24 04/02/24 04:24 04:27 WBC 6.3 RBC 4.03 L Hgb 11.8 L Hct 35.8 L MCV 88.8 MCH 29.3 MCHC 33.0 RDW 15.3 H Plt Count 234 MPV 9.0 Sodium 136 L Potassium 3.7 Chloride 105 Carbon Dioxide 28 Anion Gap 3 L BUN 5 L Creatinine 0.60 L Estim Creat Clear Calc 107 Estimated GFR > 60 Glucose 87 POC Capillary Glucose 89 Calcium 8.7 Total Bilirubin 0.6 AST 23 ALT 13 Alkaline Phosphatase 67 Total Protein 7.0 Albumin 4.1 Triglycerides 596 H
[2024-04-02 10:57] LABS: Glucose Point of Care 121 mg/dl (65-105)
[2024-04-02] MEDS: diphenhydrAMINE HCl INJ 50 MG/ML VIAL 25 MG IV PUSH ×2 (12:31→20:43)
--- NOTE | 2024-04-02 12:51 | ECG_ITS ---
Test Date: 2024-04-02 14:09:47 Measurements Intervals [place] Rate: 71 P: 43 NM: 177 QRS: 22 QRSD: 85 T: 3 QT: 402 QTc: 437 Interpretive Statements SINUS RHYTHM Compared to ECG 01/08/2024 00:35:27 No significant changes Electronically Signed On 04-02-2024 15:18:30 COMMERCIAL FRONT LOAD OPERATOR by Ken Corral M.D.
--- NOTE | 2024-04-02 12:57 | PCPTNOTE ---
Attempted PT evaluation Per nursing pt having Chest pain and recommended coming back at later time. Will follow.
--- NOTE | 2024-04-02 14:27 | PCOTNOTE ---
Attempted to see pt. for occupational therapy evaluation. Pt. currently experience chest pain and is unable to participate in therapy services at this time
--- NOTE | 2024-04-02 14:50 | PC.NURSE ---
Patient complained of right and left sided chest pain around 1230 this afternoon. Patient described pain as crushing and worsening with deep breaths. She was placed on 2L O2 via NC at this time. Pulse Ox was 98% on room air and 100% on 2L O2. Patient has a history of recent AR in June 2023 with three stents placed during this time. She had 1 more stent placed in November 2023. Dr. Donald was notified and ordered a stat CXR and EGG. EKG and CXR was negative for abnormal findings. Dr. Donald was notified. Patient now states that symptoms have mostly resolved, but she still feels SOB when taking deep breaths. Dr. Donald is on unit assessing patient in room at this time.
[2024-04-02] MEDS: HYDROcodone/acetaminophen (*CRX) 5-325 MG TABLET 1 TAB PO ×2 (15:18→23:19)
[2024-04-02 16:28] LABS: D Dimer < 0.27 ug/mL (<0.48)
[2024-04-02 16:30] LABS: Glucose Point of Care 117 mg/dl (65-105)
[2024-04-02 16:36] LABS: Troponin I < 0.012 ng/mL (0.000-0.034)
[2024-04-02 19:27] LABS: Troponin I < 0.012 ng/mL (0.000-0.034)
[2024-04-02] MEDS: ATORVASTATIN 40 MG TABLET 80 MG PO (20:29)
[2024-04-02] MEDS: buPROPion HCL SR (12 HR) 150 MG TAB PO (20:31)
[2024-04-02] MEDS: traZODone HCL 50 MG TABLET 200 MG PO (20:31)
[2024-04-02 22:46] LABS: Troponin I < 0.012 ng/mL (0.000-0.034)
[2024-04-03] VITALS (15 sets, daily range): BP systolic 109–122; BP diastolic 58–78; PULSE 63–85; RESP 18–20; TEMP 36.6–36.8; O2SAT 97–99
[2024-04-03] MEDS: HYDROmorphone HCL INJ (*CRX) 1 MG/ML SYR IV PUSH ×5 (01:27→20:26)
[2024-04-03] MEDS: DEXTROSE 5%/0.9% SOD CHL 1,000 ML 70 ML IV CONT ×2 (01:27→17:24)
[2024-04-03 04:09] LABS: Hematocrit 34.4 % (37.0-47.0); Mean Corpuscular Hemoglobin 28.5 pg (26-34); Mean Corpuscular Volume 89.1 fl (80-100); Mean Platelet Volume 8.8 fl (7.4-10.4); Platelet Count Result 209 k/mm3 (150-375); Red Blood Count 3.86 M/mm3 (4.2-5.4); Red Cell Distribution Width 15.4 % (11.5-14.5); White Blood Count 5.2 K/mm3 (4.5-10.0)
[2024-04-03 04:27] LABS: Albumin Level 3.7 g/dL (3.5-5.1); Anion Gap 3 mmol/L (4-12); Blood Urea Nitrogen 5 mg/dL (7-17); CRP 0.6 mg/dL (<1.0); Calcium 8.5 mg/dL (8.4-10.2); Carbon Dioxide 28 mmol/L (22-30); Chloride 107 mmol/L (98-107); Estimated CRCL calculation 91 ml/min; Estimated Glomerular Filt Rate > 60; Glucose 102 mg/dL (65-110); Phosphorus 3.9 mg/dL (2.5-4.5); Potassium 3.7 mmol/L (3.4-5.0); Sodium 138 mmol/L (137-145)
[2024-04-03] MEDS: LEVOTHYROXINE SODIUM 100 MCG TABLET 200 MCG PO (05:44)
[2024-04-03] MEDS: diphenhydrAMINE HCl INJ 50 MG/ML VIAL 25 MG IV PUSH ×3 (05:50→20:28)
--- NOTE | 2024-04-03 07:42 | PCPTNOTE ---
Attempted Physical therapy evaluation. Pt. currently experience chest pain - nursing recommended trying at later time. Will follow.
[2024-04-03] MEDS: HYDROcodone/acetaminophen (*CRX) 5-325 MG TABLET 1 TAB PO ×2 (08:46→15:27)
[2024-04-03] MEDS: ONDANSETRON INJ 4 MG/2 ML VIAL IV PUSH ×2 (08:46→16:49)
[2024-04-03] MEDS: CITALOPRAM HYDROBROMIDE 20 MG TABLET 40 MG PO (08:47)
[2024-04-03] MEDS: ASPIRIN 81 MG ENTERIC TABLET PO (08:47)
[2024-04-03] MEDS: METOPROLOL SUCCINATE EXT REL 12.5 MG TABCR PO (08:47)
[2024-04-03] MEDS: PANTOPRAZOLE SODIUM IV 40 MG VIAL IV PUSH ×2 (08:47→20:27)
[2024-04-03] MEDS: FENOFIBRATE 160 MG TABLET PO (08:47)
[2024-04-03] MEDS: TICAGRELOR 90 MG TABLET PO ×2 (08:47→20:27)
[2024-04-03] MEDS: LIPASE/AMYLASE/PROTEASE 12,000 UNITS CAP 6 CAP PO ×3 (08:48→16:39)
--- NOTE | 2024-04-03 15:53 | P.PNIM_ITS ---
Progress Note: A&P Assessment and Plan (1) Chest pain: Code(s): R07.9 - Chest pain, unspecified Status: Acute Assessment and Plan: Patient developed sudden onset chest pain. She describes as a 'weight' substern al without radiation. Came on at rest. Associated with SOB. Pleuritic in nature. Lasted about 15 minutes. Pain was similar to the pain when she had her AK earlier this year but also states may be related to anxiety. Stat EKG ordered and is normal. CXR clear. Vital signs stable. 98% on RA. pulse 89. BP 107/70. Lungs clear, Heart RRR. No pedal edema. Chest pain has resolved. She has been getting her ASA and Brilinta Serial Troponin negative. Moved to IMU. DDimer negative and LE venous dopplers normal Probably related to anxiety. Continue to monitor on tele in IMU (2) Acute on chronic pancreatitis: Code(s): K85.90 - Acute pancreatitis without necrosis or infection, unspecified; K86.1 - Other chronic pancreatitis Status: Acute Assessment and Plan: Patient presents to the ED with complaints of abdominal pain radiating to the back. She has prior history of pancreatitis related to hyperlipidemia. She has needed treatment with plasmapheresis and insulin drips in the past. TG was at 656. Lactic acid was normal. Lipase normal. Magnesium low at 1.[address] abdomen pelvis showed no significant abnormalities. Suspected her abdominal pain is related to chronic pancreatitis. She was made NPO for bowel rest. Pain control with IV pain medication Repeat lipase level remained normal. Repeat TG level trending down. She requested diet last night so started on full liquid and advanced to low fat. She is now having more pain with solid food so cuong back down to full liquid diet again. Continue Creon. Advance diet when pain better. (3) Abdominal pain: Code(s): R10.9 - Unspecified abdominal pain Status: Acute Assessment and Plan: As above. Add miralax for constipation (4) CAD (coronary artery disease): Code(s): I25.10 - Atherosclerotic heart disease of [place] coronary artery without angina pectoris Status: Chronic Assessment and Plan: She has a history of coronary disease and undergoing a multivessel stent procedure down in [facility] in June 2023. Continue ASA, Brilinta and Lipitor. (5) Hypertriglyceridemia: Code(s): E78.1 - Pure hyperglyceridemia Status: Chronic Assessment and Plan: Stable. TG levels remaining reasonable. Continue fenofibrate and lipitor. Good glycemic control is important . 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 Continue levothyroxine. 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 A1c 7.7 in January. She is eating and she is monitoring her glucose. Continue insulin pump protocol. (9) Shoulder pain: Code(s): M25.519 - Pain in unspecified shoulder Status: Acute Assessment and Plan: Shoulder pain worse related to bedrest and lack of therapy. Continue PT/OT. Plan DVT prophylaxis SCDs Code status full code Subjective Date/time seen: 04/03/24 15:53 Interval history: 48yo female with chylomicronemia syndrome and chronic pancreatitis here for abdominal pain. Still with considerable abdominal pain especially after eating. Rates it 7-8/10. Associated nausea but no vomiting. No BM. No further chest pain. glucose stable. Exam Narrative: AF 98.3 112/68 74 18 98% ra Gen - NARD Chest - CTA bilaterally, nml RR. Port-a-cath noted in the left upper chest. CV - RRR S1/S2. Tele showing no signifincat dysrhythmias Abd - soft, obese, mild diffuse pain but no guarding. Ext - No pedal edema. Psych - Nml mood and affect Skin - Warm and dry Objective Data Vital Signs Vital Signs: Vital Signs - 24 hr 04/02/24 17:07 04/02/24 20:00 04/02/24 21:28 Temperature 97.6 F 97.7 F Pulse Rate 78 70 Respiratory Rate 18 16 Blood Pressure 111/61 111/60 Pulse Oximetry 98 95 96 Oxygen Delivery Room Air 04/02/24 20:00 04/02/24 23:30 04/02/24 23:30 Temperature Pulse Rate 68 70 70 Respiratory Rate 16 16 Blood Pressure Pulse Oximetry 96 98 Oxygen Delivery Room Air Room Air 04/02/24 23:30 04/03/24 02:00 04/03/24 04:00 Temperature 97.2 F L Pulse Rate 70 68 65 Respiratory Rate 20 20 Blood Pressure 102/64 Pulse Oximetry 99 99 Oxygen Delivery Room Air 04/03/24 04:00 04/03/24 04:00 04/03/24 05:09 Temperature 97.9 F Pulse Rate 65 65 68 Respiratory Rate 18 Blood Pressure 109/58 L Pulse Oximetry 99 Oxygen Delivery 04/03/24 07:50 04/03/24 08:29 04/03/24 08:47 Temperature 97.9 F Pulse Rate 63 63 Respiratory Rate 18 Blood Pressure 122/72 Pulse Oximetry 97 Oxygen Delivery Room Air 04/03/24 08:00 04/03/24 08:00 04/03/24 10:00 Temperature Pulse Rate 66 70 63 Respiratory Rate 18 Blood Pressure Pulse Oximetry 97 Oxygen Delivery Room Air 04/03/24 11:06 04/03/24 11:07 04/03/24 11:07 Temperature Pulse Rate 63 63 Respiratory Rate 18 Blood Pressure Pulse Oximetry 97 Oxygen Delivery Room Air Room Air 04/03/24 11:29 04/03/24 11:48 Temperature 98.3 F Pulse Rate 82 74 Respiratory Rate 18 Blood Pressure 112/68 Pulse Oximetry 98 Oxygen Delivery Intake/Output Intake/Output: Intake & Output 03/31/24 04/01/24 04/02/24 04/03/24 23:59 23:59 23:59 23:59 Intake Total 3918.8 2240 50 1480 Output Total 1500 Balance 3918.8 2240 50 -20 Meds/Results Medications: Active Medications Generic Name Dose Route Start Last Admin Trade Name Freq PRN Reason Stop Dose Admin Acetaminophen 650 mg 04/02/24 10:58 Acetaminophen 325 Mg Tablet PO Q6H PRN Mild Pain (1-3) or Fever Hydrocodone Bitart/Acetaminophen 1 tab 04/02/24 10:58 04/03/24 15:27 Hydrocodone/Acetaminophen (*Crx) 5-325 Mg Tablet PO 1 tab Q6H PRN Administration Pain Rated 4-6 Lipase/Protease/Amylase 6 cap 03/31/24 17:00 04/03/24 12:00 Lipase/Amylase/Protease 12,000 Units Cap PO 6 cap TIDWM RAPHAEL Administration Lipase/Protease/Amylase 3 cap 03/31/24 15:24 Lipase/Amylase/Protease 12,000 Units Cap PO PRN PRN WITH SNACKS ONLY Aspirin 81 mg 04/01/24 09:00 04/03/24 08:47 Aspirin 81 Mg Enteric Tablet PO 81 mg QAM RAPHAEL Administration Atorvastatin Calcium 80 mg 03/31/24 21:00 04/02/24 20:29 Atorvastatin 40 Mg Tablet PO 80 mg HS RAPHAEL Administration Bupropion HCl 150 mg 03/31/24 21:00 04/02/24 20:31 Bupropion Hcl Sr (12 Hr) 150 Mg Tab PO 150 mg HS RAPHAEL Administration Citalopram Hydrobromide 40 mg 04/01/24 09:00 04/03/24 08:47 Citalopram Hydrobromide 20 Mg Tablet PO 40 mg DAILY RAPHAEL Administration Dextrose 12.5 gm 03/31/24 10:10 Dextrose 50% 25 Gm/50 Ml Syringe IV PUSH PRN PRN Hypoglycemia Protocol Diphenhydramine HCl 25 mg 03/31/24 09:54 04/03/24 10:48 Diphenhydramine Hcl Inj 50 Mg/Ml Vial IV PUSH 25 mg Q4H PRN Administration Itching Fenofibrate 160 mg 04/01/24 09:00 04/03/24 08:47 Fenofibrate 160 Mg Tablet PO 160 mg DAILY RAPHAEL Administration Glucagon 1 mg 03/31/24 10:10 Glucagon For Inj 1 Mg Vial IM PRN PRN Hypoglycemia Protocol Glucose 15 gm 03/31/24 10:10 Glucose Oral Gel 15 Gm Of Glucse In 37.5 Gm Tube PO PRN PRN Hypoglycemia Protocol Home Med 1 each 04/01/24 06:00 04/02/24 09:37 Home Medication XX 05/01/24 05:59 1 each DAILY@0600 RAPHAEL Administration Hydromorphone HCl 1 mg 03/31/24 07:02 04/03/24 10:35 Hydromorphone Hcl Inj (*Crx) 1 Mg/Ml Syr IV PUSH 1 mg Q4H PRN Administration Pain Rated 7-10 Dextrose 1,000 mls @ 100 mls/hr 03/31/24 10:10 Dextrose 5% 1,000 Ml IVPB PRN PRN Hypoglycemia Protocol Dextrose/Sodium Chloride 1,000 mls @ 70 mls/hr 04/02/24 10:15 04/03/24 01:27 Dextrose 5% Sodium Chloride 0.9% IV CONT 70 mls/hr .[id number] RAPHAEL Administration Levothyroxine Sodium 200 mcg 04/01/24 06:30 04/03/24 05:44 Levothyroxine Sodium 100 Mcg Tablet PO 200 mcg DAILY@0630 RAPHAEL Administration Lorazepam 1 mg 03/31/24 14:45 03/31/24 20:35 Lorazepam (*Crx) 1 Mg Tablet PO 1 mg QHS PRN Administration sleep Metoprolol Succinate 12.5 mg 04/01/24 09:00 04/03/24 08:47 Metoprolol Succinate Ext Rel 12.5 Mg Tabcr PO 12.5 mg DAILY RAPHAEL Administration Naloxone HCl 0.1 mg 03/31/24 21:37 Naloxone Hcl 0.4 Mg/Ml Vial IV PUSH Q5MIN PRN Sedation Ondansetron HCl 4 mg 03/31/24 07:02 04/03/24 08:46 Ondansetron Inj 4 Mg/2 Ml Vial IV PUSH 4 mg Q4H PRN Administration Nausea Pantoprazole Sodium 40 mg 03/31/24 21:00 04/03/24 08:47 Pantoprazole Sodium Iv 40 Mg Vial IV PUSH 40 mg Q12HR RAPHAEL Administration Ticagrelor 90 mg 03/31/24 21:00 04/03/24 08:47 Ticagrelor 90 Mg Tablet PO 90 mg Q12HR RAPHAEL Administration Trazodone HCl 200 mg 03/31/24 21:00 04/02/24 20:31 Trazodone Hcl 50 Mg Tablet PO 200 mg HS RAPHAEL Administration Radiology Results: ITS Impressions Abdomen/Pelvis CT 03/31/24 05:12 Impression: No significant abnormalities seen. Chest X-Ray 04/02/24 13:16 IMPRESSION: 1. No acute cardiopulmonary disease. Venous Doppler Study 04/02/24 15:51 IMPRESSION: 1. No deep venous thrombosis. Labs Labs: Laboratory Results - last 24 hr 04/02/24 04/02/24 04/02/24 16:05 16:26 18:56 WBC RBC Hgb Hct MCV MCH MCHC RDW Plt Count MPV D-Dimer < 0.27 Sodium Potassium Chloride Carbon Dioxide Anion Gap BUN Creatinine Estim Creat Clear Calc Estimated GFR Glucose POC Capillary Glucose 117 H Calcium Phosphorus Troponin I < 0.012 < 0.012 C-Reactive Protein Albumin 04/02/24 04/03/24 22:18 03:52 WBC 5.2 RBC 3.86 L Hgb 11.0 L Hct 34.4 L MCV 89.1 MCH 28.5 MCHC 32.0 RDW 15.4 H Plt Count 209 MPV 8.8 D-Dimer Sodium 138 Potassium 3.7 Chloride 107 Carbon Dioxide 28 Anion Gap 3 L BUN 5 L Creatinine 0.70 Estim Creat Clear Calc 91 Estimated GFR > 60 Glucose 102 POC Capillary Glucose Calcium 8.5 Phosphorus 3.9 Troponin I < 0.012 C-Reactive Protein 0.6 Albumin 3.7
[2024-04-03] MEDS: buPROPion HCL SR (12 HR) 150 MG TAB PO (20:27)
[2024-04-03] MEDS: ATORVASTATIN 40 MG TABLET 80 MG PO (20:27)
[2024-04-03] MEDS: LORazepam (*CRX) 1 MG TABLET PO (20:27)
[2024-04-03] MEDS: traZODone HCL 50 MG TABLET 200 MG PO (20:28)
[2024-04-03 21:19] LABS: Glucose Point of Care 183 mg/dl (65-105)
[2024-04-04] VITALS (13 sets, daily range): BP systolic 97–132; BP diastolic 66–85; PULSE 70–81; RESP 14–18; TEMP 36.4–36.7; O2SAT 97–99
[2024-04-04] MEDS: HYDROmorphone HCL INJ (*CRX) 1 MG/ML SYR IV PUSH ×3 (04:31→19:14)
[2024-04-04] MEDS: LEVOTHYROXINE SODIUM 100 MCG TABLET 200 MCG PO (04:31)
[2024-04-04] MEDS: diphenhydrAMINE HCl INJ 50 MG/ML VIAL 25 MG IV PUSH ×3 (04:36→13:36)
[2024-04-04] MEDS: DEXTROSE 5%/0.9% SOD CHL 1,000 ML 70 ML IV CONT (06:48)
[2024-04-04 08:17] LABS: Glucose Point of Care 88 mg/dl (65-105)
[2024-04-04] MEDS: METOPROLOL SUCCINATE EXT REL 12.5 MG TABCR PO (08:45)
[2024-04-04] MEDS: CITALOPRAM HYDROBROMIDE 20 MG TABLET 40 MG PO (08:46)
[2024-04-04] MEDS: TICAGRELOR 90 MG TABLET PO ×2 (08:46→20:06)
[2024-04-04] MEDS: FENOFIBRATE 160 MG TABLET PO (08:46)
[2024-04-04] MEDS: ASPIRIN 81 MG ENTERIC TABLET PO (08:46)
[2024-04-04] MEDS: LIPASE/AMYLASE/PROTEASE 12,000 UNITS CAP 6 CAP PO ×3 (08:47→17:28)
[2024-04-04] MEDS: PANTOPRAZOLE SODIUM IV 40 MG VIAL IV PUSH (08:47)
[2024-04-04] MEDS: polyethylene glycoL 3350 17 GM POWD.PACK PO (08:48)
[2024-04-04] MEDS: HYDROcodone/acetaminophen (*CRX) 5-325 MG TABLET 1 TAB PO ×2 (08:51→16:36)
[2024-04-04] MEDS: ENOXAPARIN 40 MG/0.4 ML SYRINGE SUB-Q (11:06)
[2024-04-04 11:50] LABS: Glucose Point of Care 109 mg/dl (65-105)
--- NOTE | 2024-04-04 14:10 | P.PNIM_ITS ---
Progress Note: A&P Assessment and Plan (1) Chest pain: Code(s): R07.9 - Chest pain, unspecified Status: Acute Assessment and Plan: Patient developed sudden onset chest pain. She describes as a 'weight' substern al without radiation. Came on at rest. Associated with SOB. Pleuritic in nature. Lasted about 15 minutes. Pain was similar to the pain when she had her DC earlier this year but also states may be related to anxiety. Stat EKG was normal. CXR clear. Vital signs stable and exam benign. Chest pain has resolved. She has been getting her ASA and Brilinta Serial Troponin negative. Moved to IMU. DDimer negative and LE venous dopplers normal Probably related to anxiety. Okay to stop tele (2) Acute on chronic pancreatitis: Code(s): K85.90 - Acute pancreatitis without necrosis or infection, unspecified; K86.1 - Other chronic pancreatitis Status: Acute Assessment and Plan: Patient presents to the ED with complaints of abdominal pain radiating to the back. She has prior history of pancreatitis related to hyperlipidemia. She has needed treatment with plasmapheresis and insulin drips in the past. TG was at 656. Lactic acid was normal. Lipase normal. Magnesium low at 1.[address] abdomen pelvis showed no significant abnormalities. Suspected her abdominal pain is related to chronic pancreatitis. She was made NPO for bowel rest. Pain control with IV pain medication Repeat lipase level remained normal. Repeat TG level trending down. Diet started and advanced to low fat but developed increasing abd pain so this diet changed to full liquids. Requesting change in her pain medication regiment but will keep it the same today. Advance diet to diabetic, low fat diet as tolerated. Continue Creon. Possibly home tomorrow on full liquid diet since this may take some time to resolve (3) Abdominal pain: Code(s): R10.9 - Unspecified abdominal pain Status: Acute Assessment and Plan: As above. Added miralax for constipation but she requests something else. Stop miralax and start colace (4) CAD (coronary artery disease): Code(s): I25.10 - Atherosclerotic heart disease of [place] coronary artery without angina pectoris Status: Chronic Assessment and Plan: She has a history of coronary disease and undergoing a multivessel stent procedure down in [facility] in June 2023. Continue ASA, Brilinta and Lipitor. (5) Hypertriglyceridemia: Code(s): E78.1 - Pure hyperglyceridemia Status: Chronic Assessment and Plan: Stable. TG levels remaining reasonable. Continue fenofibrate and lipitor. Good glycemic control is important . 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 Continue levothyroxine. 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 A1c 7.7 in January. She is eating and she is monitoring her glucose. Continue insulin pump protocol. (9) Shoulder pain: Code(s): M25.519 - Pain in unspecified shoulder Status: Acute Assessment and Plan: Shoulder pain worse related to bedrest and lack of therapy. Continue PT/OT. Plan DVT prophylaxis Lovenox since mostly found in bed Code status full code Subjective Date/time seen: 04/04/24 14:10 Interval history: 48yo female with chylomicronemia syndrome and chronic pancreatitis here for abdominal pain. Tolerated full liquid diet and abd pain reasonable. She requests to stay on this diet. Still with nausea. No CP. Shoulder pain no change. No BMs. Exam Narrative: AF 97.8 105/78 73 16 99% ra Gen - NARD Chest - CTA bilaterally, nml RR. Port-a-cath noted in the left upper chest. CV - RRR S1/S2. Tele showing no signifincat dysrhythmias Abd - soft, obese, mild diffuse pain but no guarding. Ext - No pedal edema. Psych - Nml mood and affect Skin - Warm and dry Objective Data Vital Signs Vital Signs: Vital Signs - 24 hr 04/03/24 16:00 04/03/24 16:00 04/03/24 16:38 Temperature Pulse Rate 72 74 70 Respiratory Rate 18 Blood Pressure Pulse Oximetry 98 Oxygen Delivery Room Air 04/03/24 16:16 04/03/24 20:00 04/03/24 20:00 Temperature 98.2 F 98.1 F Pulse Rate 70 73 Respiratory Rate 20 18 Blood Pressure 113/63 117/78 Pulse Oximetry 97 99 Oxygen Delivery Room Air 04/03/24 20:00 04/03/24 22:00 04/04/24 00:00 Temperature 98.1 F Pulse Rate 73 85 77 Respiratory Rate 18 Blood Pressure 110/68 Pulse Oximetry 97 Oxygen Delivery 04/04/24 00:00 04/04/24 00:00 04/04/24 02:00 Temperature Pulse Rate 77 73 Respiratory Rate Blood Pressure Pulse Oximetry Oxygen Delivery Room Air 04/04/24 04:00 04/04/24 04:00 04/04/24 04:00 Temperature 97.9 F Pulse Rate 72 70 Respiratory Rate 16 Blood Pressure 132/78 Pulse Oximetry 97 Oxygen Delivery Room Air 04/04/24 05:54 04/04/24 07:44 04/04/24 08:45 Temperature 97.6 F Pulse Rate 72 72 81 Respiratory Rate 14 Blood Pressure 121/85 Pulse Oximetry 98 Oxygen Delivery 04/04/24 08:00 04/04/24 08:00 04/04/24 10:00 Temperature Pulse Rate 81 81 81 Respiratory Rate 14 Blood Pressure Pulse Oximetry 98 Oxygen Delivery Room Air 04/04/24 11:38 04/04/24 11:38 04/04/24 12:00 Temperature 97.8 F Pulse Rate 81 81 73 Respiratory Rate 14 16 Blood Pressure 105/78 Pulse Oximetry 98 99 Oxygen Delivery Room Air Intake/Output Intake/Output: Intake & Output 04/01/24 04/02/24 04/03/24 04/04/24 23:59 23:59 23:59 23:59 Intake Total 2240 50 2480 1498 Output Total 2100 1000 Balance 2240 50 380 498 Meds/Results Medications: Active Medications Generic Name Dose Route Start Last Admin Trade Name Freq PRN Reason Stop Dose Admin Acetaminophen 650 mg 04/02/24 10:58 Acetaminophen 325 Mg Tablet PO Q6H PRN Mild Pain (1-3) or Fever Hydrocodone Bitart/Acetaminophen 1 tab 04/02/24 10:58 04/04/24 08:51 Hydrocodone/Acetaminophen (*Crx) 5-325 Mg Tablet PO 1 tab Q6H PRN Administration Pain Rated 4-6 Lipase/Protease/Amylase 6 cap 03/31/24 17:00 04/04/24 13:00 Lipase/Amylase/Protease 12,000 Units Cap PO 6 cap TIDWM RAPHAEL Administration Lipase/Protease/Amylase 3 cap 03/31/24 15:24 Lipase/Amylase/Protease 12,000 Units Cap PO PRN PRN WITH SNACKS ONLY Aspirin 81 mg 04/01/24 09:00 04/04/24 08:46 Aspirin 81 Mg Enteric Tablet PO 81 mg QAM RAPHAEL Administration Atorvastatin Calcium 80 mg 03/31/24 21:00 04/03/24 20:27 Atorvastatin 40 Mg Tablet PO 80 mg HS RAPHAEL Administration Bupropion HCl 150 mg 03/31/24 21:00 04/03/24 20:27 Bupropion Hcl Sr (12 Hr) 150 Mg Tab PO 150 mg HS RAPHAEL Administration Citalopram Hydrobromide 40 mg 04/01/24 09:00 04/04/24 08:46 Citalopram Hydrobromide 20 Mg Tablet PO 40 mg DAILY RAPHAEL Administration Dextrose 12.5 gm 03/31/24 10:10 Dextrose 50% 25 Gm/50 Ml Syringe IV PUSH PRN PRN Hypoglycemia Protocol Diphenhydramine HCl 25 mg 03/31/24 09:54 04/04/24 13:36 Diphenhydramine Hcl Inj 50 Mg/Ml Vial IV PUSH 25 mg Q4H PRN Administration Itching Docusate Sodium 100 mg 04/04/24 21:00 Docusate Sodium 100 Mg Capsule PO Q12HR RAPHAEL Enoxaparin Sodium 40 mg 04/04/24 09:00 04/04/24 11:06 Enoxaparin 40 Mg/0.4 Ml Syringe SUB-Q 40 mg DAILY RAPHAEL Administration Fenofibrate 160 mg 04/01/24 09:00 04/04/24 08:46 Fenofibrate 160 Mg Tablet PO 160 mg DAILY RAPHAEL Administration Glucagon 1 mg 03/31/24 10:10 Glucagon For Inj 1 Mg Vial IM PRN PRN Hypoglycemia Protocol Glucose 15 gm 03/31/24 10:10 Glucose Oral Gel 15 Gm Of Glucse In 37.5 Gm Tube PO PRN PRN Hypoglycemia Protocol Home Med 1 each 04/01/24 06:00 04/02/24 09:37 Home Medication XX 05/01/24 05:59 1 each DAILY@0600 RAPHAEL Administration Hydromorphone HCl 1 mg 03/31/24 07:02 04/04/24 13:37 Hydromorphone Hcl Inj (*Crx) 1 Mg/Ml Syr IV PUSH 1 mg Q4H PRN Administration Pain Rated 7-10 Dextrose 1,000 mls @ 100 mls/hr 03/31/24 10:10 Dextrose 5% 1,000 Ml IVPB PRN PRN Hypoglycemia Protocol Dextrose/Sodium Chloride 1,000 mls @ 70 mls/hr 04/02/24 10:15 04/04/24 06:48 Dextrose 5% Sodium Chloride 0.9% IV CONT 70 mls/hr .[id number] RAPHAEL Administration Levothyroxine Sodium 200 mcg 04/01/24 06:30 04/04/24 04:31 Levothyroxine Sodium 100 Mcg Tablet PO 200 mcg DAILY@0630 RAPHAEL Administration Lorazepam 1 mg 03/31/24 14:45 04/03/24 20:27 Lorazepam (*Crx) 1 Mg Tablet PO 1 mg QHS PRN Administration sleep Metoprolol Succinate 12.5 mg 04/01/24 09:00 04/04/24 08:45 Metoprolol Succinate Ext Rel 12.5 Mg Tabcr PO 12.5 mg DAILY RAPHAEL Administration Naloxone HCl 0.1 mg 03/31/24 21:37 Naloxone Hcl 0.4 Mg/Ml Vial IV PUSH Q5MIN PRN Sedation Ondansetron HCl 4 mg 03/31/24 07:02 04/03/24 16:49 Ondansetron Inj 4 Mg/2 Ml Vial IV PUSH 4 mg Q4H PRN Administration Nausea Pantoprazole Sodium 40 mg 03/31/24 21:00 04/04/24 08:47 Pantoprazole Sodium Iv 40 Mg Vial IV PUSH 40 mg Q12HR RAPHAEL Administration Ticagrelor 90 mg 03/31/24 21:00 04/04/24 08:46 Ticagrelor 90 Mg Tablet PO 90 mg Q12HR RAPHAEL Administration Trazodone HCl 200 mg 03/31/24 21:00 04/03/24 20:28 Trazodone Hcl 50 Mg Tablet PO 200 mg HS RAPHAEL Administration Radiology Results: ITS Impressions Abdomen/Pelvis CT 03/31/24 05:12 Impression: No significant abnormalities seen. Chest X-Ray 04/02/24 13:16 IMPRESSION: 1. No acute cardiopulmonary disease. Venous Doppler Study 04/02/24 15:51 IMPRESSION: 1. No deep venous thrombosis. Labs Labs: Laboratory Results - last 24 hr 04/03/24 04/04/24 04/04/24 21:16 07:41 11:42 POC Capillary Glucose 183 H 88 109 H
[2024-04-04 16:03] LABS: Glucose Point of Care 98 mg/dl (65-105)
[2024-04-04] MEDS: ONDANSETRON INJ 4 MG/2 ML VIAL IV PUSH ×2 (16:36→20:09)
[2024-04-04 17:04] LABS: Glucose Point of Care 114 mg/dl (65-105)
--- NOTE | 2024-04-04 18:29 | PC.NURSE ---
This patient, Casandra Jones, was received from [ IMU ] on 04/04/24 at 1820. Patient/family oriented to unit policies and routines
--- NOTE | 2024-04-04 18:29 | PC.NURSE ---
Pt is stable and comfortable.
[2024-04-04] MEDS: buPROPion HCL SR (12 HR) 150 MG TAB PO (20:06)
[2024-04-04] MEDS: ATORVASTATIN 40 MG TABLET 80 MG PO (20:06)
[2024-04-04] MEDS: DOCUSATE SODIUM 100 MG CAPSULE PO (20:06)
[2024-04-04] MEDS: traZODone HCL 50 MG TABLET 200 MG PO (20:06)
[2024-04-04] MEDS: diphenhydrAMINE HCl CAP 25 MG CAPSULE PO (20:09)
[2024-04-04 20:34] LABS: Glucose Point of Care 93 mg/dl (65-105)
[2024-04-05] MEDS: HYDROcodone/acetaminophen (*CRX) 5-325 MG TABLET 1 TAB PO ×2 (05:29→20:01)
[2024-04-05 05:50] VITALS: BP 120/78; PULSE 69; RESP 14; TEMP 36.4; O2SAT 99
[2024-04-05] MEDS: LEVOTHYROXINE SODIUM 100 MCG TABLET 200 MCG PO (06:46)
[2024-04-05 08:16] LABS: Glucose Point of Care 88 mg/dl (65-105)
[2024-04-05] MEDS: ENOXAPARIN 40 MG/0.4 ML SYRINGE SUB-Q (09:39)
[2024-04-05] MEDS: HYDROmorphone HCL INJ (*CRX) 1 MG/ML SYR IV PUSH ×3 (09:39→20:09)
[2024-04-05 09:40] VITALS: PULSE 76
[2024-04-05] MEDS: CITALOPRAM HYDROBROMIDE 20 MG TABLET 40 MG PO (09:40)
[2024-04-05] MEDS: ASPIRIN 81 MG ENTERIC TABLET PO (09:40)
[2024-04-05] MEDS: METOPROLOL SUCCINATE EXT REL 12.5 MG TABCR PO (09:40)
[2024-04-05] MEDS: TICAGRELOR 90 MG TABLET PO ×2 (09:40→20:01)
[2024-04-05] MEDS: PANTOPRAZOLE 40 MG TABLET PO (09:40)
[2024-04-05] MEDS: DOCUSATE SODIUM 100 MG CAPSULE PO ×2 (09:41→20:01)
[2024-04-05] MEDS: ONDANSETRON INJ 4 MG/2 ML VIAL IV PUSH ×2 (09:41→14:59)
[2024-04-05] MEDS: FENOFIBRATE 160 MG TABLET PO (09:42)
[2024-04-05] MEDS: LIPASE/AMYLASE/PROTEASE 12,000 UNITS CAP 6 CAP PO ×3 (10:07→17:00)
--- NOTE | 2024-04-05 11:04 | PM.IMPN ---
Progress Note: A&P Assessment and Plan (1) Chest pain: Code(s): R07.9 - Chest pain, unspecified Status: Acute Assessment and Plan: Patient developed sudden onset chest pain. She describes as a 'weight' substernal without radiation. Came on at rest. Associated with SOB. Pleuritic in nature. Lasted about 15 minutes. Pain was similar to the pain when she had her NE earlier this year but also states may be related to anxiety. Stat EKG was normal. CXR clear. Vital signs stable and exam benign. Chest pain has resolved. She has been getting her ASA and Brilinta Serial Troponin negative. Moved to IMU. DDimer negative and LE venous dopplers normal CP probably related to anxiety. Tele stopped. (2) Acute on chronic pancreatitis: Code(s): K85.90 - Acute pancreatitis without necrosis or infection, unspecified; K86.1 - Other chronic pancreatitis Status: Acute Assessment and Plan: Patient presents to the ED with complaints of abdominal pain radiating to the back. She has prior history of pancreatitis related to hyperlipidemia. She has needed treatment with plasmapheresis and insulin drips in the past. TG was at 656. Lactic acid was normal. Lipase normal. Magnesium low at 1.[address] abdomen pelvis showed no significant abnormalities. Suspected her abdominal pain is related to chronic pancreatitis. She was made NPO for bowel rest. Pain control with IV pain medication. Repeat lipase level remained normal. Repeat TG level trending down. Diet started and advanced to low fat but developed increasing abd pain so diet changed back to full liquids. Was requesting change in her pain medication regiment but reluctant to change since pain is 7/10 after waking her from a sound sleep. Advance diet to diabetic, low fat diet as tolerated. Continue Creon. (3) Abdominal pain: Code(s): R10.9 - Unspecified abdominal pain Status: Acute Assessment and Plan: As above. Added miralax for constipation but she requests something else so changed to colace. Still no BM. Soapsuds enema x1. (4) CAD (coronary artery disease): Code(s): I25.10 - Atherosclerotic heart disease of [place] coronary artery without angina pectoris Status: Chronic Assessment and Plan: She has a history of coronary disease and undergoing a multivessel stent procedure down in [facility] in June 2023. Continue ASA, Brilinta and Lipitor. (5) Hypertriglyceridemia: Code(s): E78.1 - Pure hyperglyceridemia Status: Chronic Assessment and Plan: Stable. TG levels remaining reasonable. Continue fenofibrate and lipitor. Good glycemic control is important . 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 Continue levothyroxine. 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 A1c 7.7 in January. She is eating and she is monitoring her glucose. Continue insulin pump protocol. (9) Shoulder pain: Code(s): M25.519 - Pain in unspecified shoulder Status: Acute Assessment and Plan: Shoulder pain worse related to bedrest and lack of therapy. Continue PT/OT. Plan DVT prophylaxis Lovenox since mostly found in bed Code status full code Subjective Date/time seen: 04/05/24 11:04 Interval history: 48yo female with chylomicronemia syndrome and chronic pancreatitis here for abdominal pain. Toelrated full liquid for lunch and dinner yesterday with minimal pain. She slept okay. Pain still 7/10 (despite being woken up form sleep). Complains of nausea. Glucose okay. Exam Narrative: AF 97.6 120/78 76 14 99% ra Gen - NARD Chest - CTA bilaterally, nml RR CV - RRR S1/S2 Abd - soft, obese, mild diffuse pain but no guarding. Ext - No pedal edema. Psych - Nml mood and affect Skin - Warm and dry Objective Data Vital Signs Vital Signs: Vital Signs - 24 hr 04/04/24 11:38 04/04/24 11:38 04/04/24 12:00 Temperature 97.8 F Pulse Rate 81 81 73 Respiratory Rate 14 16 Blood Pressure 105/78 Pulse Oximetry 98 99 Oxygen Delivery Room Air 04/04/24 14:00 04/04/24 16:00 04/04/24 21:41 Temperature 98 F 97.7 F Pulse Rate 73 72 72 Respiratory Rate 14 18 Blood Pressure 97/70 L 121/66 Pulse Oximetry 98 97 Oxygen Delivery 04/05/24 05:50 04/05/24 09:40 Temperature 97.6 F Pulse Rate 69 76 Respiratory Rate 14 Blood Pressure 120/78 Pulse Oximetry 99 Oxygen Delivery Intake/Output Intake/Output: Intake & Output 04/02/24 04/03/24 04/04/24 04/05/24 23:59 23:59 23:59 23:59 Intake Total 50 2480 2738 840 Output Total 2100 2100 Balance 50 380 638 840 Meds/Results Medications: Active Medications Generic Name Dose Route Start Last Admin Trade Name Freq PRN Reason Stop Dose Admin Acetaminophen 650 mg 04/02/24 10:58 Acetaminophen 325 Mg Tablet PO Q6H PRN Mild Pain (1-3) or Fever Hydrocodone Bitart/Acetaminophen 1 tab 04/02/24 10:58 04/05/24 05:29 Hydrocodone/Acetaminophen (*Crx) 5-325 Mg Tablet PO 1 tab Q6H PRN Administration Pain Rated 4-6 Lipase/Protease/Amylase 6 cap 03/31/24 17:00 04/05/24 10:07 Lipase/Amylase/Protease 12,000 Units Cap PO 6 cap TIDWM RAPHAEL Administration Lipase/Protease/Amylase 3 cap 03/31/24 15:24 Lipase/Amylase/Protease 12,000 Units Cap PO PRN PRN WITH SNACKS ONLY Aspirin 81 mg 04/01/24 09:00 04/05/24 09:40 Aspirin 81 Mg Enteric Tablet PO 81 mg QAM RAPHAEL Administration Atorvastatin Calcium 80 mg 03/31/24 21:00 04/04/24 20:06 Atorvastatin 40 Mg Tablet PO 80 mg HS RAPHAEL Administration Bupropion HCl 150 mg 03/31/24 21:00 04/04/24 20:06 Bupropion Hcl Sr (12 Hr) 150 Mg Tab PO 150 mg HS RAPHAEL Administration Citalopram Hydrobromide 40 mg 04/01/24 09:00 12/08/24 09:40 Citalopram Hydrobromide 20 Mg Tablet PO 40 mg DAILY RAPHAEL Administration Dextrose 12.5 gm 03/31/24 10:10 Dextrose 50% 25 Gm/50 Ml Syringe IV PUSH PRN PRN Hypoglycemia Protocol Diphenhydramine HCl 25 mg 04/04/24 14:20 04/04/24 20:09 Diphenhydramine Hcl Cap 25 Mg Capsule PO 25 mg Q6H PRN Administration Itching Docusate Sodium 100 mg 04/04/24 21:00 04/05/24 09:41 Docusate Sodium 100 Mg Capsule PO 100 mg Q12HR RAPHAEL Administration Enoxaparin Sodium 40 mg 04/04/24 09:00 04/05/24 09:39 Enoxaparin 40 Mg/0.4 Ml Syringe SUB-Q 40 mg DAILY RAPHAEL Administration Fenofibrate 160 mg 04/01/24 09:00 04/05/24 09:42 Fenofibrate 160 Mg Tablet PO 160 mg DAILY RAPHAEL Administration Glucagon 1 mg 03/31/24 10:10 Glucagon For Inj 1 Mg Vial IM PRN PRN Hypoglycemia Protocol Glucose 15 gm 03/31/24 10:10 Glucose Oral Gel 15 Gm Of Glucse In 37.5 Gm Tube PO PRN PRN Hypoglycemia Protocol Home Med 1 each 04/01/24 06:00 04/02/24 09:37 Home Medication XX 05/01/24 05:59 1 each DAILY@0600 RAPHAEL Administration Hydromorphone HCl 1 mg 03/31/24 07:02 04/05/24 09:39 Hydromorphone Hcl Inj (*Crx) 1 Mg/Ml Syr IV PUSH 1 mg Q4H PRN Administration Pain Rated 7-10 Dextrose 1,000 mls @ 100 mls/hr 03/31/24 10:10 Dextrose 5% 1,000 Ml IVPB PRN PRN Hypoglycemia Protocol Dextrose/Sodium Chloride 1,000 mls @ 70 mls/hr 04/02/24 10:15 04/04/24 21:49 Dextrose 5% Sodium Chloride 0.9% IV CONT Infused .[id number] RAPHAEL Infusion Levothyroxine Sodium 200 mcg 04/01/24 06:30 04/05/24 06:46 Levothyroxine Sodium 100 Mcg Tablet PO 200 mcg DAILY@0630 RAPHAEL Administration Lorazepam 1 mg 03/31/24 14:45 04/03/24 20:27 Lorazepam (*Crx) 1 Mg Tablet PO 1 mg QHS PRN Administration sleep Metoprolol Succinate 12.5 mg 04/01/24 09:00 04/05/24 09:40 Metoprolol Succinate Ext Rel 12.5 Mg Tabcr PO 12.5 mg DAILY RAPHAEL Administration Naloxone HCl 0.1 mg 03/31/24 21:37 Naloxone Hcl 0.4 Mg/Ml Vial IV PUSH Q5MIN PRN Sedation Ondansetron HCl 4 mg 03/31/24 07:02 04/05/24 09:41 Ondansetron Inj 4 Mg/2 Ml Vial IV PUSH 4 mg Q4H PRN Administration Nausea Pantoprazole Sodium 40 mg 04/05/24 09:00 04/05/24 09:40 Pantoprazole 40 Mg Tablet PO 40 mg QAM RAPHAEL Administration Ticagrelor 90 mg 03/31/24 21:00 04/05/24 09:40 Ticagrelor 90 Mg Tablet PO 90 mg Q12HR RAPHAEL Administration Trazodone HCl 200 mg 03/31/24 21:00 04/04/24 20:06 Trazodone Hcl 50 Mg Tablet PO 200 mg HS RAPHAEL Administration Radiology Results: ITS Impressions Abdomen/Pelvis CT 03/31/24 05:12 Impression: No significant abnormalities seen. Chest X-Ray 04/02/24 13:16 IMPRESSION: 1. No acute cardiopulmonary disease. Venous Doppler Study 04/02/24 15:51 IMPRESSION: 1. No deep venous thrombosis. Labs Labs: Laboratory Results - last 24 hr 04/04/24 04/04/24 04/04/24 11:42 15:53 16:57 POC Capillary Glucose 109 H 98 114 H 04/04/24 04/05/24 20:31 08:06 POC Capillary Glucose 93 88
[2024-04-05 11:57] LABS: Glucose Point of Care 126 mg/dl (65-105)
[2024-04-05] MEDS: diphenhydrAMINE HCl CAP 25 MG CAPSULE PO (14:59)
[2024-04-05 16:00] VITALS: BP 122/66; PULSE 82; RESP 16; TEMP 36.7; O2SAT 99
[2024-04-05 17:47] LABS: Glucose Point of Care 75 mg/dl (65-105)
[2024-04-05] MEDS: traZODone HCL 50 MG TABLET 200 MG PO (20:01)
[2024-04-05] MEDS: ATORVASTATIN 40 MG TABLET 80 MG PO (20:01)
[2024-04-05] MEDS: buPROPion HCL SR (12 HR) 150 MG TAB PO (20:01)
[2024-04-05] MEDS: LORazepam (*CRX) 1 MG TABLET PO (20:09)
[2024-04-05 20:34] LABS: Glucose Point of Care 110 mg/dl (65-105)
[2024-04-05 22:27] VITALS: BP 118/70; PULSE 74; RESP 12; TEMP 36.1; O2SAT 97
[2024-04-06] MEDS: HYDROcodone/acetaminophen (*CRX) 5-325 MG TABLET 1 TAB PO ×2 (01:40→08:17)
[2024-04-06] MEDS: LEVOTHYROXINE SODIUM 100 MCG TABLET 200 MCG PO (05:17)
[2024-04-06] MEDS: HYDROmorphone HCL INJ (*CRX) 1 MG/ML SYR IV PUSH ×2 (05:17→11:13)
[2024-04-06 06:23] VITALS: BP 104/64; PULSE 72; RESP 20; TEMP 36; O2SAT 96
[2024-04-06 07:42] LABS: Glucose Point of Care 96 mg/dl (65-105)
[2024-04-06 08:06] VITALS: PULSE 82
[2024-04-06] MEDS: METOPROLOL SUCCINATE EXT REL 12.5 MG TABCR PO (08:06)
[2024-04-06] MEDS: CITALOPRAM HYDROBROMIDE 20 MG TABLET 40 MG PO (08:08)
[2024-04-06] MEDS: DOCUSATE SODIUM 100 MG CAPSULE PO ×2 (08:08→20:48)
[2024-04-06] MEDS: ASPIRIN 81 MG ENTERIC TABLET PO (08:08)
[2024-04-06] MEDS: TICAGRELOR 90 MG TABLET PO ×2 (08:08→20:50)
[2024-04-06] MEDS: PANTOPRAZOLE 40 MG TABLET PO (08:08)
[2024-04-06] MEDS: FENOFIBRATE 160 MG TABLET PO (08:09)
[2024-04-06] MEDS: LIPASE/AMYLASE/PROTEASE 12,000 UNITS CAP 6 CAP PO ×3 (08:10→17:17)
[2024-04-06] MEDS: ENOXAPARIN 40 MG/0.4 ML SYRINGE SUB-Q (08:11)
[2024-04-06] MEDS: ONDANSETRON INJ 4 MG/2 ML VIAL IV PUSH ×3 (08:20→20:43)
[2024-04-06] MEDS: diphenhydrAMINE HCl CAP 25 MG CAPSULE PO ×2 (11:12→20:47)
[2024-04-06 11:45] LABS: Glucose Point of Care 127 mg/dl (65-105)
--- NOTE | 2024-04-06 13:36 | P.PNIM_ITS ---
Progress Note: A&P Assessment and Plan (1) Chest pain: Code(s): R07.9 - Chest pain, unspecified Status: Acute Assessment and Plan: Patient developed sudden onset chest pain. She describes as a 'weight' substern al without radiation. Came on at rest. Associated with SOB. Pleuritic in nature. Lasted about 15 minutes. Pain was similar to the pain when she had her [place] earlier this year but also states may be related to anxiety. Stat EKG was normal. CXR clear. Vital signs stable and exam benign. Chest pain has resolved. She has been getting her ASA and Brilinta Serial Troponin negative. Moved to IMU. DDimer negative and LE venous dopplers negative fo DVT CP probably related to anxiety. Tele stopped. (2) Acute on chronic pancreatitis: Code(s): K85.90 - Acute pancreatitis without necrosis or infection, unspecified; K86.1 - Other chronic pancreatitis Status: Acute Assessment and Plan: Patient presented to the ED with complaints of abdominal pain radiating to the back. She has prior history of pancreatitis related to hyperlipidemia. She has needed treatment with plasmapheresis and insulin drips in the past. TG was at 656. Lactic acid was normal. Lipase normal. Magnesium low at 1.[address] abdomen pelvis showed no significant abnormalities. Suspected her abdominal pain is related to chronic pancreatitis. She was made NPO for bowel rest. Pain control with IV pain medication. Repeat lipase level remained normal. Repeat TG level trending down. Diet started and advanced to low fat but developed increasing abd pain so diet changed back to full liquids. Was requesting change in her pain medication regiment but reluctant to change since pain is 7/10 after waking her from a sound sleep. Also feel her nausea related to narcotics? Will repeat labs. Repeat CT scan. Decrease narcotics. Advance diet to diabetic, low fat diet as tolerated. Continue Creon. (3) Abdominal pain: Code(s): R10.9 - Unspecified abdominal pain Status: Acute Assessment and Plan: As above. Added miralax for constipation but she requests something else so changed to colace. Still no BM. Repeat Soapsuds enema x1. Add lactulose. (4) CAD (coronary artery disease): Code(s): I25.10 - Atherosclerotic heart disease of [place] coronary artery without angina pectoris Status: Chronic Assessment and Plan: She has a history of coronary disease and undergoing a multivessel stent procedure down in [facility] in June 2023. Continue ASA, Brilinta and Lipitor. (5) Hypertriglyceridemia: Code(s): E78.1 - Pure hyperglyceridemia Status: Chronic Assessment and Plan: Stable. TG levels remaining reasonable. Continue fenofibrate and lipitor. Good glycemic control is important . 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 Continue levothyroxine. 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 A1c 7.7 in January. She is eating and she is monitoring her glucose. Continue insulin pump protocol. Stop IV fluids. (9) Shoulder pain: Code(s): M25.519 - Pain in unspecified shoulder Status: Acute Assessment and Plan: Shoulder pain worse related to bedrest and lack of therapy. Continue PT/OT. Plan DVT prophylaxis Lovenox since mostly found in bed Code status full code Subjective Date/time seen: 04/06/24 13:36 Interval history: 48yo female with chylomicronemia syndrome and chronic pancreatitis here for abdominal pain. Still with considerable amount of abdominal pain. Remains on full liquid diet. Having continued nausea. No BM even with enema. Exam Narrative: AF 96.8 104/64 82 20 96% ra Gen - NARD Chest - CTA bilaterally, nml RR CV - RRR S1/S2 Abd - soft, diffuse edema. +BS Ext - No pedal edema. Psych - Nml mood and affect Skin - Warm and dry Objective Data Vital Signs Vital Signs: Vital Signs - 24 hr 04/05/24 16:00 04/05/24 20:00 04/05/24 22:27 Temperature 98.0 F 96.9 F L Pulse Rate 82 74 Respiratory Rate 16 12 Blood Pressure 122/66 118/70 Pulse Oximetry 99 97 Oxygen Delivery Room Air 04/06/24 06:23 04/06/24 08:06 04/06/24 08:00 Temperature 96.8 F L Pulse Rate 72 82 Respiratory Rate 20 Blood Pressure 104/64 Pulse Oximetry 96 Oxygen Delivery Room Air Intake/Output Intake/Output: Intake & Output 04/03/24 04/04/24 04/05/24 04/06/24 23:59 23:59 23:59 23:59 Intake Total 2480 2738 1010 1260 Output Total 2100 2100 Balance 483 895 6589 1260 Meds/Results Medications: Active Medications Generic Name Dose Route Start Last Admin Trade Name Freq PRN Reason Stop Dose Admin Acetaminophen 650 mg 04/02/24 10:58 Acetaminophen 325 Mg Tablet PO Q6H PRN Mild Pain (1-3) or Fever Hydrocodone Bitart/Acetaminophen 1 tab 04/02/24 10:58 04/06/24 08:17 Hydrocodone/Acetaminophen (*Crx) 5-325 Mg Tablet PO 1 tab Q6H PRN Administration Pain Rated 4-6 Lipase/Protease/Amylase 6 cap 03/31/24 17:00 04/06/24 11:13 Lipase/Amylase/Protease 12,000 Units Cap PO 6 cap TIDWM RAPHAEL Administration Lipase/Protease/Amylase 3 cap 03/31/24 15:24 Lipase/Amylase/Protease 12,000 Units Cap PO PRN PRN WITH SNACKS ONLY Aspirin 81 mg 04/01/24 09:00 04/06/24 08:08 Aspirin 81 Mg Enteric Tablet PO 81 mg QAM RAPHAEL Administration Atorvastatin Calcium 80 mg 03/31/24 21:00 04/05/24 20:01 Atorvastatin 40 Mg Tablet PO 80 mg HS RAPHAEL Administration Bupropion HCl 150 mg 03/31/24 21:00 04/05/24 20:01 Bupropion Hcl Sr (12 Hr) 150 Mg Tab PO 150 mg HS RAPHAEL Administration Citalopram Hydrobromide 40 mg 04/01/24 09:00 04/06/24 08:08 Citalopram Hydrobromide 20 Mg Tablet PO 40 mg DAILY RAPHAEL Administration Dextrose 12.5 gm 12/03/24 10:10 Dextrose 50% 25 Gm/50 Ml Syringe IV PUSH PRN PRN Hypoglycemia Protocol Diphenhydramine HCl 25 mg 04/04/24 14:20 04/06/24 11:12 Diphenhydramine Hcl Cap 25 Mg Capsule PO 25 mg Q6H PRN Administration Itching Docusate Sodium 100 mg 04/04/24 21:00 04/06/24 08:08 Docusate Sodium 100 Mg Capsule PO 100 mg Q12HR RAPHAEL Administration Enoxaparin Sodium 40 mg 04/04/24 09:00 04/06/24 08:11 Enoxaparin 40 Mg/0.4 Ml Syringe SUB-Q 40 mg DAILY RAPHAEL Administration Fenofibrate 160 mg 04/01/24 09:00 04/06/24 08:09 Fenofibrate 160 Mg Tablet PO 160 mg DAILY RAPHAEL Administration Glucagon 1 mg 03/31/24 10:10 Glucagon For Inj 1 Mg Vial IM PRN PRN Hypoglycemia Protocol Glucose 15 gm 03/31/24 10:10 Glucose Oral Gel 15 Gm Of Glucse In 37.5 Gm Tube PO PRN PRN Hypoglycemia Protocol Home Med 1 each 04/01/24 06:00 04/02/24 09:37 Home Medication XX 05/01/24 05:59 1 each DAILY@0600 RAPHAEL Administration Hydromorphone HCl 0.5 mg 04/06/24 13:21 Hydromorphone Hcl Inj (*Crx) 1 Mg/Ml Syr IV PUSH Q4H PRN Pain Rated 7-10 Dextrose 1,000 mls @ 100 mls/hr 03/31/24 10:10 Dextrose 5% 1,000 Ml IVPB PRN PRN Hypoglycemia Protocol Lactulose 20 gm 04/06/24 13:20 Lactulose 20 Gm/30 Ml Udc PO BID RAPHAEL Levothyroxine Sodium 200 mcg 04/01/24 06:30 04/06/24 05:17 Levothyroxine Sodium 100 Mcg Tablet PO 200 mcg DAILY@0630 RAPHAEL Administration Lorazepam 1 mg 03/31/24 14:45 04/05/24 20:09 Lorazepam (*Crx) 1 Mg Tablet PO 1 mg QHS PRN Administration sleep Metoprolol Succinate 12.5 mg 04/01/24 09:00 04/06/24 08:06 Metoprolol Succinate Ext Rel 12.5 Mg Tabcr PO 12.5 mg DAILY RAPHAEL Administration Naloxone HCl 0.1 mg 03/31/24 21:37 Naloxone Hcl 0.4 Mg/Ml Vial IV PUSH Q5MIN PRN Sedation Ondansetron HCl 4 mg 03/31/24 07:02 04/06/24 08:20 Ondansetron Inj 4 Mg/2 Ml Vial IV PUSH 4 mg Q4H PRN Administration Nausea Pantoprazole Sodium 40 mg 04/05/24 09:00 04/06/24 08:08 Pantoprazole 40 Mg Tablet PO 40 mg QAM RAPHAEL Administration Ticagrelor 90 mg 03/31/24 21:00 04/06/24 08:08 Ticagrelor 90 Mg Tablet PO 90 mg Q12HR RAPHAEL Administration Trazodone HCl 200 mg 03/31/24 21:00 04/05/24 20:01 Trazodone Hcl 50 Mg Tablet PO 200 mg HS RAPHAEL Administration Radiology Results: ITS Impressions Abdomen/Pelvis CT 03/31/24 05:12 Impression: No significant abnormalities seen. Chest X-Ray 04/02/24 13:16 IMPRESSION: 1. No acute cardiopulmonary disease. Venous Doppler Study 04/02/24 15:51 IMPRESSION: 1. No deep venous thrombosis. Labs Labs: Laboratory Results - last 24 hr 04/05/24 04/05/24 04/06/24 16:09 20:31 07:36 POC Capillary Glucose 75 110 H 96 04/06/24 11:07 POC Capillary Glucose 127 H
[2024-04-06 14:16] LABS: Basophils Percent Auto 0.5 % (0.2-1.2); Eosinophils Absolute Auto 0.1 K/mm3 (0-0.3); Eosinophils Percent Auto 0.9 % (0-4.4); Hematocrit 36.7 % (37.0-47.0); Hemoglobin 11.9 g/dL (12.0-15.0); Immature Granulocyte Absolute 0.04 K/mm3 (0.00-0.031); Immature Granulocyte Percent A 0.6 % (0-0.5); Lymphocytes Absolute Auto 1.87 K/mm3 (0.9-3.2); Lymphocytes Percent Auto 28.4 % (18.3-44.2); Mean Corpuscular HGB Conc 32.4 g/dl (32-36); Mean Corpuscular Hemoglobin 28.8 pg (26-34); Mean Corpuscular Volume 88.9 fl (80-100); Mean Platelet Volume 9.2 fl (7.4-10.4); Monocytes Absolute Auto 0.4 K/mm3 (0.1-0.6); Monocytes Percent Auto 6.4 % (2.6-8.5); Neutrophils Absolute Auto 4.2 K/mm3 (1.3-6.7); Neutrophils Percent Auto 63.2 % (45.5-73.1); Platelet Count Result 251 k/mm3 (150-375); Red Blood Count 4.13 M/mm3 (4.2-5.4); Red Cell Distribution Width 15.7 % (11.5-14.5); White Blood Count 6.6 K/mm3 (4.5-10.0)
[2024-04-06 14:31] LABS: Triglycerides 356 mg/dL (<150)
[2024-04-06 14:36] LABS: Alanine Aminotransferase 21 U/L (6-35); Albumin Level 3.9 g/dL (3.5-5.1); Alkaline Phosphatase 54 U/L (38-126); Anion Gap 3 mmol/L (4-12); Aspartate Amino Transferase 40 U/L (14-36); Bilirubin,Total 0.7 mg/dL (0.2-1.3); Blood Urea Nitrogen 6 mg/dL (7-17); Calcium 8.8 mg/dL (8.4-10.2); Carbon Dioxide 27 mmol/L (22-30); Chloride 105 mmol/L (98-107); Estimated CRCL calculation 105 ml/min; Estimated Glomerular Filt Rate > 60; Glucose 132 mg/dL (65-110); Lipase 44 U/L (23-300); Potassium 3.8 mmol/L (3.4-5.0); Sodium 135 mmol/L (137-145)
[2024-04-06] MEDS: LACTULOSE 20 GM/30 ML UDC PO ×2 (15:11→17:17)
[2024-04-06] MEDS: HYDROmorphone HCL INJ (*CRX) 1 MG/ML SYR 0.5 MG IV PUSH ×2 (15:12→20:44)
[2024-04-06 16:00] VITALS: BP 119/65; PULSE 74; RESP 18; TEMP 36.3; O2SAT 98
[2024-04-06 16:15] LABS: Glucose Point of Care 113 mg/dl (65-105)
[2024-04-06 20:35] VITALS: BP 123/84; PULSE 73; RESP 18; TEMP 37.2; O2SAT 95
[2024-04-06] MEDS: LORazepam (*CRX) 1 MG TABLET PO (20:47)
[2024-04-06] MEDS: traZODone HCL 50 MG TABLET 200 MG PO (20:47)
[2024-04-06] MEDS: buPROPion HCL SR (12 HR) 150 MG TAB PO (20:48)
[2024-04-06] MEDS: ATORVASTATIN 40 MG TABLET 80 MG PO (20:48)
[2024-04-06 20:52] LABS: Glucose Point of Care 153 mg/dl (65-105)
[2024-04-06 23:59] VITALS: BP 117/75; PULSE 94; RESP 18; TEMP 37.2; O2SAT 76
[2024-04-07] MEDS: LEVOTHYROXINE SODIUM 100 MCG TABLET 200 MCG PO (06:20)
[2024-04-07 07:08] VITALS: BP 116/65; PULSE 77; RESP 18; TEMP 36.6; O2SAT 96
[2024-04-07 08:04] LABS: Glucose Point of Care 121 mg/dl (65-105)
[2024-04-07] MEDS: FENOFIBRATE 160 MG TABLET PO (08:33)
[2024-04-07] MEDS: ASPIRIN 81 MG ENTERIC TABLET PO (08:33)
[2024-04-07] MEDS: LACTULOSE 20 GM/30 ML UDC PO ×2 (08:33→16:58)
[2024-04-07] MEDS: LIPASE/AMYLASE/PROTEASE 12,000 UNITS CAP 6 CAP PO ×3 (08:33→16:58)
[2024-04-07] MEDS: ENOXAPARIN 40 MG/0.4 ML SYRINGE SUB-Q (08:33)
[2024-04-07] MEDS: CITALOPRAM HYDROBROMIDE 20 MG TABLET 40 MG PO (08:33)
[2024-04-07] MEDS: PANTOPRAZOLE 40 MG TABLET PO (08:33)
[2024-04-07] MEDS: DOCUSATE SODIUM 100 MG CAPSULE PO ×2 (08:34→21:18)
[2024-04-07] MEDS: traMADol HCL (*CRX) 25 MG TABLET PO ×3 (08:34→21:32)
[2024-04-07] MEDS: METOPROLOL SUCCINATE EXT REL 12.5 MG TABCR PO (08:38)
[2024-04-07] MEDS: TICAGRELOR 90 MG TABLET PO ×2 (08:38→21:19)
[2024-04-07] MEDS: HYDROmorphone HCL INJ (*CRX) 1 MG/ML SYR 0.5 MG IV PUSH (10:18)
[2024-04-07] MEDS: ONDANSETRON INJ 4 MG/2 ML VIAL IV PUSH ×2 (10:21→14:51)
[2024-04-07 11:49] LABS: Glucose Point of Care 155 mg/dl (65-105)
[2024-04-07] MEDS: ACETAMINOPHEN 325 MG TABLET 650 MG PO (13:03)
[2024-04-07] MEDS: diphenhydrAMINE HCl CAP 25 MG CAPSULE PO (13:06)
[2024-04-07 14:00] VITALS: BP 135/75; PULSE 81; RESP 18; TEMP 36.8; O2SAT 98
[2024-04-07] MEDS: HEPARIN SODIUM, PORCINE 10,000 UNITS/10 ML VIAL 10000 UNITS IV PUSH (16:31)
[2024-04-07 16:34] LABS: Glucose Point of Care 144 mg/dl (65-105)
--- NOTE | 2024-04-07 16:35 | PC.NURSE ---
[facility] room 320 04/07/2024 Casandra Jones 1975 Procedure:PFP Catheter Herminia Gannon [id number]:Arrived to pt. room, alert & oriented x 4, pt. is admitted for pain control. Chart, labs,notes,orders, meds, orders reviewed, today's procedure confirmed with Annie Mills RN. VS: [id number] sat. 98% room air. Pt. taking Tramadol for abdominal pain due to pancreatitis. Pt. has insulin pump. Bilateral PFP's accessed using sterile technique, both ports flushed well with good blood return, NS flushed & high dose heparin locked. Pt. tolerated well. Pt. refused need for Lidocaine ointment pre-procedure. Pt. will call after discharge to set up next appointment for catheter maintenance.
--- NOTE | 2024-04-07 17:08 | WPDGICN ---
Assessment and Plan Assessment and plan (1) Chronic pancreatitis: Onset Date: ~09/02/23 Qualifiers: Pancreatitis type: other Qualified Code(s): K86.1 - Other chronic pancreatitis Code(s): K86.1 - Other chronic pancreatitis Status: Chronic Assessment and Plan: she has chronic pain, will attempt to advance diet ct scan no major findings but she has chronic pancreatitis will also order gastric emptying study as outpatient to assess if she also has dysmotility given h/o DM (2) Epigastric abdominal pain: Code(s): R10.13 - Epigastric pain Status: Acute Assessment and Plan: pain control (3) Nausea & vomiting: Code(s): R11.2 - Nausea with vomiting, unspecified Status: Acute Assessment and Plan: chronic nausea zofran at home will get GES as outpatient will give reglan to see if will help with symptom (4) GERD (gastroesophageal reflux disease): Qualifiers: Esophagitis presence: esophagitis presence not specified Qualified Code(s): K21.9 - Gastro-esophageal reflux disease without esophagitis Code(s): K21.9 - Gastro-esophageal reflux disease without esophagitis Status: Acute (5) Type 2 diabetes mellitus: Qualifiers: Diabetes mellitus complication status: without complication Diabetes mellitus nursing home insulin use: 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 Qualified Code(s): E11.9 - Type 2 diabetes mellitus without complications; 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 She suffers with hyper triglyceridemia that requires episodes of plasmapheresis with chronic pancreatitis for which has been admitted several times, using pancreatic enzymes.? Also CAD s/p stents x3 on brilinta. She was admitted few days ago with chest/abdominal discomfort, cardiac work up was negative, negative d-dimer. Lactic acid and amylase normal, TG level 650. She has been having recurrent abdominal pain worse after eating reguar meal and diet changed to liquid- will attempt to advance again. She says that has daily nausea and never had GES or used reglan. Last EGD 06/[address] scan no major changes. She says that at home will use tylenol or nsaid's for her chronic abdominal pain, will use narcotics only as needed whenever she needs to come to hospital Review of Systems Constitutional: Constitutional: Denies chills Eyes: Eyes: Denies change in vision ENT: Denies dysphagia Cardiovascular: Cardiovascular: Reports chest pain, Denies leg edema and Denies palpitations Respiratory: Respiratory: Denies cough and Denies dyspnea Gastrointestinal: Gastrointestinal: Reports abdominal pain and Reports nausea Genitourinary: Genitourinary: Denies dysuria Musculoskeletal: Musculoskeletal: Denies arthralgias Integumentary/Breasts: Skin/Breast: Denies rash Neurologic: Denies focal weakness Psychiatric: Psychiatric: Reports no additional psychiatric complaints and Reports as per HPI Endocrine: Endocrine: Denies cold intolerance, Denies flushing and Denies heat intolerance Hematologic/Lymphatic: Hematologic/Lymphatic: Reports no additional hematologic/lymphatic complaints and Reports as per HPI Allergic/Immunologic: Allergic/Immunologic: Reports no additional allergic/immunologic complaints and Reports as per HPI PMFSH Past Medical History Medical History Abnormal CT scan, esophagus Allergic rhinitis Anxiety Chronic pancreatitis (~09/02/23) Chylomicronemia syndrome Colon cancer screening GERD (gastroesophageal reflux disease) Headache 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 Hyperlipemia Hypertriglyceridemia Hypertriglyceridemia 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 Nausea Occult blood in stools PCOS (polycystic ovarian syndrome) Port-A-Cath in place Thyroid disorder Surgical History Surgical History History of appendectomy History of conization of cervix History of dilatation and curettage History of endometrial ablation History of exploratory laparotomy History of loop electrical excision procedure (LEEP) History of partial hysterectomy History of tonsillectomy History of tubal ligation History of wisdom tooth extraction Family History Family History Father Alcohol abuse Hypercholesteremia Hypertension Family history of alcoholism Family history of cardiovascular disease Diabetes mellitus Mother Hypercholesteremia Hypothyroid Cerebrovascular accident Family history of cardiovascular disease Diabetes mellitus Grandparent Skin cancer Colon cancer Heart disease Hypothyroid Cerebrovascular accident Sibling Autoimmune disorder Hypothyroid Kidney disorder Hypertension Diabetes mellitus Mother Family history of diabetes mellitus in first degree relative Family history of thyroid disease Father Family history of diabetes mellitus in first degree relative Patient's father is Other Family history of kidney disease Social History Social History Social History: She smokes a pack a day for the past 30 years. No alcohol or drug use. She has 2 dogs and a cat at home. Surrogate medical decision maker: José Miguel Jones, spouse. Code status: Full Smoking packs per day: 1 Smoking cigarettes per day: 20.0 Years smoked: 32 Smoking pack-years: 32.00 Smoking status: Current every day smoker Second hand tobacco smoke exposure: No Alcohol intake: never Drinks per week: 0 Substance use: never Substance use type: does not use Do You Feel Safe in your Home?: Yes Lack of Transportation: No Lack of Food: Never True Current Housing: I Have Housing Concerned About Future Housing: No Difficulty Paying Gas/Electric Bills: No Difficulty Paying for Meds: No Currently Unemployed: No Education: Associate Degree Difficulty w/ Childcare or Family Care: No Living arrangements: with family Spiritual care concerns: No Meds Home Medications and Allergies Home Medications ?Medication ?Instructions ?Recorded ?Confirmed ?Type metformin 500 mg tablet 1,000 mg (2 x 500 mg) PO BID #180 12/19/22 03/31/24 Rx tabs levothyroxine 200 mcg tablet 200 mcg PO DAILY 07/21/23 03/31/24 History [id number] 2 cap PO TIDWMEAL 07/22/23 03/31/24 History 36,000-114,000-180,000 unit capsule,delay rel (Creon) aspirin 81 mg tablet,delayed 81 mg PO QAM #30 tabs 07/25/23 03/31/24 Rx release pantoprazole 40 mg tablet,delayed 40 mg PO BID #30 tabs 08/22/23 03/31/24 Rx release (Protonix) citalopram 40 mg tablet 40 mg PO DAILY 08/31/23 03/31/24 History ticagrelor 90 mg tablet (Brilinta) 90 mg PO BID #180 tabs 10/03/23 03/31/24 Rx bupropion HCl 150 mg tablet,12 hr 150 mg PO HS 10/09/23 03/31/24 History sustained-release pen needle, diabetic 32 gauge x #1,200 ea 11/14/23 03/31/24 Rx 5/32 (BD Ultra-Fine Diandra Pen Needle) insulin syringe-needle U-100 0.3 #100 ea 11/29/23 03/31/24 Rx mL 31 gauge x 5/16 (BD Insulin Syringe Ultra-Fine) trazodone 100 mg tablet 200 mg (2 x 100 mg) PO HS #180 tabs 12/26/23 03/31/24 Rx atorvastatin 80 mg tablet 80 mg PO HS #90 tabs 02/12/24 03/31/24 Rx fenofibrate 160 mg tablet 160 mg PO DAILY 30 days #30 tabs 02/27/24 03/31/24 Rx ondansetron 4 mg disintegrating 4 mg PO Q8H PRN nausea and 02/27/24 03/31/24 Rx tablet vomiting #10 tabs lorazepam 1 mg tablet 1 mg PO QHS PRN sleep #90 tabs 03/27/24 03/31/24 Rx insulin aspart U-100 100 unit/mL See Rx Instructions .Route .COMPLEX 03/31/24 03/31/24 History subcutaneous solution (Novolog U-100 Insulin aspart) metoprolol succinate 25 mg 12.5 mg PO DAILY 03/31/24 03/31/24 History tablet,extended release 24 hr Allergies Allergy/AdvReac Type Severity Reaction Status Date / Time adhesive tape Allergy Mild Rash Verified 03/31/24 07:08 [place] pepper (green pepper) Allergy Unknown Hives Verified 03/31/24 07:08 sucralose (From Splenda Allergy Migraine Verified 03/31/24 07:08 (sucralose)) Artificial Sweetners AdvReac Migraine Uncoded 03/31/24 07:08 Vital Signs Vital Signs - 24 hr 04/06/24 20:00 04/06/24 20:35 04/06/24 23:59 Temperature 98.9 F 98.9 F Pulse Rate 73 94 Respiratory Rate 18 18 Blood Pressure 123/84 117/75 Pulse Oximetry 95 76 L Oxygen Delivery Room Air 04/07/24 07:08 04/07/24 08:00 04/07/24 14:00 Temperature 97.8 F 98.3 F Pulse Rate 77 81 Respiratory Rate 18 18 Blood Pressure 116/65 135/75 Pulse Oximetry 96 98 Oxygen Delivery Room Air Exam Const: General: comfortable and no acute distress HENMT: Face/Nose/Sinus: Normal nares present Eyes: General: appearance normal, both eyes and all related structures Neck: Neck: no JVD Resp: Auscultation: clear to auscultation bilaterally Cardio: Rate: regular rate Rhythm: regular rhythm GI: Inspection: non-distended GI Palp: Yes Soft to palpation and No Tenderness to palpation present (GI) Auscultation: normal bowel sounds Skin: General skin exam: normal color Neuro: Speech: normal speech Motor exam (neuro): 5/5 motor strength present throughout Extrem: General: normal to inspection Psych: Mental Status: mental status grossly normal Results Labs 04/06/24 13:50 04/06/24 13:50
--- NOTE | 2024-04-07 18:58 | P.PNIM_ITS ---
Progress Note: A&P Assessment and Plan (1) Acute on chronic pancreatitis: Code(s): K85.90 - Acute pancreatitis without necrosis or infection, unspecified; K86.1 - Other chronic pancreatitis Status: Acute Assessment and Plan: Patient presented to the ED with complaints of abdominal pain radiating to the back. She has prior history of pancreatitis related to hyperlipidemia. She has needed treatment with plasmapheresis and insulin drips in the past. TG was at 656. Lactic acid was normal. Lipase normal. Magnesium low at 1.[address] abdomen pelvis showed no significant abnormalities. Suspected her abdominal pain was related to chronic pancreatitis. She was made NPO for bowel rest. Pain control with IV pain medication. Repeat lipase level remained normal. Repeat TG level trending down. Diet started and advanced to low fat but developed increasing abd pain so diet changed back to full liquids. Patient not improving. Repeat labs remain normal or down trending. Repeat CT abd/pelvis showing no acute change. She was requesting increasing diluadid frequency but reluctant to change this since pain was 7/10 after waking her from a sound sleep. Also feel her nausea related to narcotics. Abd pain could be related to constipation. Patient is not progressing as expected and may be treating opioid use disorder. GI consult. Stop narcotics. Use non-narcotic medications for pain. Continue Creon. (2) Chest pain: Code(s): R07.9 - Chest pain, unspecified Status: Acute Assessment and Plan: Patient developed sudden onset chest pain. She describes as a 'weight' substernal without radiation. Came on at rest. Associated with SOB. Pleuritic in nature. Lasted about 15 minutes. Pain was similar to the pain when she had her RI earlier this year but also states may be related to anxiety. Stat EKG was normal. CXR clear. Vital signs stable and exam benign. Chest pain has resolved. She has been getting her ASA and Brilinta Serial Troponin negative. Moved to IMU. DDimer negative and LE venous dopplers negative fo DVT CP probably related to anxiety. No recurrence. (3) Abdominal pain: Code(s): R10.9 - Unspecified abdominal pain Status: Acute Assessment and Plan: As above. Added miralax for constipation but she requests something else so changed to colace. Still no BM so lactulose added. (4) CAD (coronary artery disease): Code(s): I25.10 - Atherosclerotic heart disease of [place] coronary artery without angina pectoris Status: Chronic Assessment and Plan: She has a history of coronary disease and undergoing a multivessel stent procedure down in [facility] in June 2023. Continue ASA, Brilinta and Lipitor. (5) Hypertriglyceridemia: Code(s): E78.1 - Pure hyperglyceridemia Status: Chronic Assessment and Plan: Stable. TG levels remaining reasonable and down trending. Continue fenofibrate and lipitor. Good glycemic control is important (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 Status: Acute Assessment and Plan: As above (7) Hypothyroidism: Qualifiers: 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 Qualified Code(s): E03.8 - Other specified hypothyroidism; E06.3 - Autoimmune thyroiditis Code(s): E03.9 - Hypothyroidism, unspecified Status: Acute Assessment and Plan: TSH normal in April. Continue levothyroxine. (8) Type 2 diabetes mellitus: Qualifiers: Diabetes mellitus complication status: without complication Diabetes mellitus fdc insulin use: with adjunct faculty for medical terminology use Qualified Code(s): E11.9 - Type 2 diabetes mellitus without complications; Z79.4 - jail (current) use of insulin Code(s): E11.9 - Type 2 diabetes mellitus without complications Status: Acute Assessment and Plan: Patient remains on insulin pump. A1c 7.7 in January. She is eating some and she is monitoring her glucose. Glucose remains well controlled Continue insulin pump protocol. Stop IV fluids. (9) Shoulder pain: Code(s): M25.519 - Pain in unspecified shoulder Status: Acute Assessment and Plan: Shoulder pain worse related to bedrest and lack of therapy. Continue PT/OT. Plan DVT prophylaxis Lovenox since mostly found in bed Code status full code Subjective Date/time seen: 04/07/24 18:58 Interval history: 48yo female with chylomicronemia syndrome and chronic pancreatitis here for abdominal pain. Patient remanis on full liquid diet and not eating much. Still with significant abd pain and nausea. +BM with enema. Not walking much. No significant improvement in her pain at all. Exam Narrative: AF 998.3 135/75 81 18 98% ra Gen - NARD Chest - CTA bilaterally, nml RR CV - RRR S1/S2 Abd - soft, diffuse tenderness but less guarding, +BS Ext - No pedal edema. Psych - Nml mood and affect Skin - Warm and dry Objective Data Vital Signs Vital Signs: Vital Signs - 24 hr 04/06/24 20:00 04/06/24 20:35 04/06/24 23:59 Temperature 98.9 F 98.9 F Pulse Rate 73 94 Respiratory Rate 18 18 Blood Pressure 123/84 117/75 Pulse Oximetry 95 76 L Oxygen Delivery Room Air 04/07/24 07:08 04/07/24 08:00 04/07/24 14:00 Temperature 97.8 F 98.3 F Pulse Rate 77 81 Respiratory Rate 18 18 Blood Pressure 116/65 135/75 Pulse Oximetry 96 98 Oxygen Delivery Room Air Intake/Output Intake/Output: Intake & Output 04/04/24 04/05/24 04/06/24 04/07/24 23:59 23:59 23:59 23:59 Intake Total 2738 1010 2600 1960 Output Total 2100 Balance 638 1010 2600 1959 Meds/Results Medications: Active Medications Generic Name Dose Route Start Last Admin Trade Name Freq PRN Reason Stop Dose Admin Acetaminophen 650 mg 04/02/24 10:58 04/07/24 13:03 Acetaminophen 325 Mg Tablet PO 650 mg Q6H PRN Administration Mild Pain (1-3) or Fever Alteplase, Recombinant 2 mg 04/07/24 11:09 Alteplase 2 Mg Vial (Cathflo) IV PUSH ONCE PRN Line Occlusion Lipase/Protease/Amylase 6 cap 03/31/24 17:00 04/07/24 16:58 Lipase/Amylase/Protease 12,000 Units Cap PO 6 cap TIDWM RAPHAEL Administration Lipase/Protease/Amylase 3 cap 03/31/24 15:24 Lipase/Amylase/Protease 12,000 Units Cap PO PRN PRN WITH SNACKS ONLY Aspirin 81 mg 04/01/24 09:00 04/07/24 08:33 Aspirin 81 Mg Enteric Tablet PO 81 mg QAM RAPHAEL Administration Atorvastatin Calcium 80 mg 03/31/24 21:00 04/06/24 20:48 Atorvastatin 40 Mg Tablet PO 80 mg HS RAPHAEL Administration Bupropion HCl 150 mg 03/31/24 21:00 04/06/24 20:48 Bupropion Hcl Sr (12 Hr) 150 Mg Tab PO 150 mg HS RPAHAEL Administration Citalopram Hydrobromide 40 mg 04/01/24 09:00 04/07/24 08:33 Citalopram Hydrobromide 20 Mg Tablet PO 40 mg DAILY RAPHAEL Administration Dextrose 12.5 gm 03/31/24 10:10 Dextrose 50% 25 Gm/50 Ml Syringe IV PUSH PRN PRN Hypoglycemia Protocol Diphenhydramine HCl 25 mg 04/04/24 14:20 04/07/24 13:06 Diphenhydramine Hcl Cap 25 Mg Capsule PO 25 mg Q6H PRN Administration Itching Docusate Sodium 100 mg 04/04/24 21:00 04/07/24 08:34 Docusate Sodium 100 Mg Capsule PO 100 mg Q12HR RAPHAEL Administration Enoxaparin Sodium 40 mg 04/04/24 09:00 04/07/24 08:33 Enoxaparin 40 Mg/0.4 Ml Syringe SUB-Q 40 mg DAILY RAPHAEL Administration Fenofibrate 160 mg 04/01/24 09:00 04/07/24 08:33 Fenofibrate 160 Mg Tablet PO 160 mg DAILY RAPHAEL Administration Glucagon 1 mg 03/31/24 10:10 Glucagon For Inj 1 Mg Vial IM PRN PRN Hypoglycemia Protocol Glucose 15 gm 03/31/24 10:10 Glucose Oral Gel 15 Gm Of Glucse In 37.5 Gm Tube PO PRN PRN Hypoglycemia Protocol Home Med 1 each 04/01/24 06:00 04/02/24 09:37 Home Medication XX 05/01/24 05:59 1 each DAILY@0600 RAPHAEL Administration Dextrose 1,000 mls @ 100 mls/hr 03/31/24 10:10 Dextrose 5% 1,000 Ml IVPB PRN PRN Hypoglycemia Protocol Lactulose 20 gm 04/06/24 13:20 04/07/24 16:58 Lactulose 20 Gm/30 Ml Udc PO 20 gm BID RAPHAEL Administration Levothyroxine Sodium 200 mcg 04/01/24 06:30 04/07/24 06:20 Levothyroxine Sodium 100 Mcg Tablet PO 200 mcg DAILY@0630 RAPHAEL Administration Lorazepam 1 mg 03/31/24 14:45 04/06/24 20:47 Lorazepam (*Crx) 1 Mg Tablet PO 1 mg QHS PRN Administration sleep Metoclopramide HCl 5 mg 04/07/24 17:16 Metoclopramide Hcl 5 Mg Tablet PO ACHS PRN Nausea And Vomiting Metoprolol Succinate 12.5 mg 04/01/24 09:00 04/07/24 08:38 Metoprolol Succinate Ext Rel 12.5 Mg Tabcr PO 12.5 mg DAILY RAPHAEL Administration Naloxone HCl 0.1 mg 03/31/24 21:37 Naloxone Hcl 0.4 Mg/Ml Vial IV PUSH Q5MIN PRN Sedation Ondansetron HCl 4 mg 03/31/24 07:02 04/07/24 14:51 Ondansetron Inj 4 Mg/2 Ml Vial IV PUSH 4 mg Q4H PRN Administration Nausea Pantoprazole Sodium 40 mg 04/05/24 09:00 04/07/24 08:33 Pantoprazole 40 Mg Tablet PO 40 mg QAM RAPHAEL Administration Ticagrelor 90 mg 03/31/24 21:00 04/07/24 08:38 Ticagrelor 90 Mg Tablet PO 90 mg Q12HR RAPHAEL Administration Tramadol HCl 25 mg 04/06/24 13:43 04/07/24 15:07 Tramadol Hcl (*Crx) 25 Mg Tablet PO 25 mg Q6H PRN Administration Pain Rated 4-6 Trazodone HCl 200 mg 03/31/24 21:00 04/06/24 20:47 Trazodone Hcl 50 Mg Tablet PO 200 mg HS RAPHAEL Administration Radiology Results: ITS Impressions Chest X-Ray 04/02/24 13:16 IMPRESSION: 1. No acute cardiopulmonary disease. Venous Doppler Study 04/02/24 15:51 IMPRESSION: 1. No deep venous thrombosis. Abdomen/Pelvis CT 04/07/24 10:02 IMPRESSION: 1. No acute intra-abdominal/pelvic process. 2. Nonobstructing 1-2 mm left renal stone. Labs Labs: Laboratory Results - last 24 hr 04/06/24 04/07/24 04/07/24 20:27 07:58 11:44 POC Capillary Glucose 153 H 121 H 155 H 04/07/24 16:31 POC Capillary Glucose 144 H
[2024-04-07 21:13] LABS: Glucose Point of Care 132 mg/dl (65-105)
[2024-04-07] MEDS: traZODone HCL 50 MG TABLET 200 MG PO (21:17)
[2024-04-07] MEDS: ATORVASTATIN 40 MG TABLET 80 MG PO (21:18)
[2024-04-07] MEDS: buPROPion HCL SR (12 HR) 150 MG TAB PO (21:19)
[2024-04-07 21:31] VITALS: BP 129/76; PULSE 70; RESP 16; TEMP 36.8; O2SAT 98
[2024-04-07] MEDS: LORazepam (*CRX) 1 MG TABLET PO (21:36)
[2024-04-08] MEDS: LEVOTHYROXINE SODIUM 100 MCG TABLET 200 MCG PO (05:35)
[2024-04-08 06:25] VITALS: BP 99/59; PULSE 81; RESP 20; TEMP 36.4; O2SAT 99
[2024-04-08 07:51] LABS: Glucose Point of Care 165 mg/dl (65-105)
[2024-04-08 08:00] VITALS: BP 102/53; PULSE 82; RESP 18; TEMP 36.2; O2SAT 98
[2024-04-08 10:20] VITALS: PULSE 80
[2024-04-08] MEDS: METOPROLOL SUCCINATE EXT REL 12.5 MG TABCR PO (10:20)
[2024-04-08] MEDS: ASPIRIN 81 MG ENTERIC TABLET PO (10:20)
[2024-04-08] MEDS: CITALOPRAM HYDROBROMIDE 20 MG TABLET 40 MG PO (10:20)
[2024-04-08] MEDS: FENOFIBRATE 160 MG TABLET PO (10:21)
[2024-04-08] MEDS: PANTOPRAZOLE 40 MG TABLET PO (10:21)
[2024-04-08] MEDS: DOCUSATE SODIUM 100 MG CAPSULE PO (10:21)
[2024-04-08] MEDS: TICAGRELOR 90 MG TABLET PO (10:21)
[2024-04-08] MEDS: LACTULOSE 20 GM/30 ML UDC PO (10:22)
[2024-04-08] MEDS: ENOXAPARIN 40 MG/0.4 ML SYRINGE SUB-Q (10:22)
[2024-04-08] MEDS: ONDANSETRON INJ 4 MG/2 ML VIAL IV PUSH ×2 (10:31→14:57)
[2024-04-08] MEDS: traMADol HCL (*CRX) 25 MG TABLET PO (10:31)
[2024-04-08] MEDS: LIPASE/AMYLASE/PROTEASE 12,000 UNITS CAP 6 CAP PO (10:31)
[2024-04-08] MEDS: diphenhydrAMINE HCl CAP 25 MG CAPSULE PO (10:35)
--- NOTE | 2024-04-08 11:24 | P.DS_ITS ---
DS: Admitting Diagnosis Discharge Date 04/08/24 Admitting Diagnosis Abdominal pain Acute on chronic pancreatitis DS: Discharge Diagnosis Discharge Diagnosis (1) Acute on chronic pancreatitis: Code(s): K85.90 - Acute pancreatitis without necrosis or infection, unspecified; K86.1 - Other chronic pancreatitis Status: Acute (2) Abdominal pain: Code(s): R10.9 - Unspecified abdominal pain Status: Acute DS: Summary Hospital Course Reason for hospitalization: Abdominal pain Acute on chronic pancreatitis Hospital Course: 48 year old female with past medical history of DM, episodes of recurring nausea vomiting and abdominal pain for which she has been admitted to hospital (using zofran 1-2 times daily).? She suffers with hyper triglyceridemia that requires episodes of plasmapheresis with chronic pancreatitis for which has been admitted several times, using pancreatic enzymes.? Also CAD s/p stents x3 on brilinta. CT abdomen with no acute changes. Patient was admitted with concerns for acute on chronic pancreatitis. Was treated conservatively with IV fluids, pain medication. Was seen by solution lead, likely plan for outpatient follow- up with gastric emptying scan in setting of history of diabetes. Patient was treated for constipation as well. Patient is being discharged home with stable condition, advised to follow-up with solution lead. Status at Discharge Functional status at discharge: independent ambulation Overall status at discharge: patient is progressing back to baseline Time Spent with Patient Time attestation: Total time spent providing and/or coordinating discharge services: Exam Narrative: Gen -no acute distress Chest - CTA bilaterally, nml RR CV - RRR S1/S2 Abd - soft, diffuse tenderness but less guarding, +BS Ext - No pedal edema. Psych - Nml mood and affect Skin - Warm and dry DS: Data Data Completed and Pending Labs on day of discharge: Labs from last 24 hours 04/08/24 04/07/24 04/07/24 07:28 20:38 16:31 POC Capillary Glucose 165 H 132 H 144 H 04/07/24 11:44 POC Capillary Glucose 155 H Discharge Plan Discharge Attending physician on discharge: Liz Galo Consulting providers: Tomas Mullins Discharging Clinician: Liz Galo Anticipated Discharge Date/Time: 04/08/24 11:18 Patient Disposition: Home, Self-Care Activity: as tolerated Diet: as tolerated and diabetic Patient Instructions: Antibiotic Form, How to Stop Smoking (DC), Pain Management (DC) Patient Language: Slovak Stand Alone Forms: General Discharge Information Follow-up/Referrals: Jose Zuniga APRN [Primary Care Provider] - 2 Weeks Tomas Mullins MD [Physician] - 2 Weeks Discharge Medications: New docusate sodium 100 mg Capsule 100 mg PO Q12HR PRN (Reason: constipation) Qty: 20 0RF Continued metformin 500 mg tablet 1,000 mg PO BID Qty: 180 1RF Rx Instructions: with morning & evening meals pantoprazole [Protonix] 40 mg tablet,delayed release (DR/EC) 40 mg PO BID Qty: 30 0RF levothyroxine 200 mcg tablet 200 mcg PO DAILY Creon 36,000-114,000- 180,000 unit capsule,delayed release(DR/EC) 2 cap PO TIDWMEAL Rx Instructions: Take 2 capsules with meals and 1 capsule with any snacks. aspirin 81 mg Tablet,Delayed Release (Dr/Ec) 81 mg PO QAM Qty: 30 0RF citalopram 40 mg tablet 40 mg PO DAILY Rx Instructions: TAKE 1 TABLET BY MOUTH EVERY DAY bupropion HCl 150 mg tablet sustained-release 12 hr 150 mg PO HS fenofibrate 160 mg Tablet 160 mg PO DAILY 30 Days Qty: 30 1RF ondansetron 4 mg tablet,disintegrating 4 mg PO Q8H PRN (Reason: nausea and vomiting) Qty: 10 0RF insulin aspart U-100 [Novolog U-100 Insulin aspart] 100 unit/mL solution See Rx Instructions .ROUTE .COMPLEX Rx Instructions: infused via insulin pump metoprolol succinate 25 mg tablet extended release 24 hr 12.5 mg PO DAILY Brilinta 90 mg tablet 90 mg PO BID Qty: 180 0RF (DME) pen needle, diabetic [BD Ultra-Fine Diandra Pen Needle] 32 gauge x 5/32 needle See Rx Instructions .ROUTE .MEDSUPPLY Qty: 1200 12RF Rx Instructions: 4 times daily (DME) insulin syringe-needle U-100 [BD Insulin Syringe Ultra-Fine] 0.3 mL 31 gauge x 5/16 syringe See Rx Instructions .ROUTE .MEDSUPPLY Qty: 100 12RF Rx Instructions: 4 times a day trazodone 100 mg tablet 200 mg PO HS Qty: 180 1RF atorvastatin 80 mg tablet 80 mg PO HS Qty: 90 1RF lorazepam 1 mg tablet 1 mg PO QHS PRN (Reason: sleep) Qty: 90 0RF Date of admission: 04/03/24 09:57 Primary Care Provider: Jose Zuniga Admitting Provider: Hugo Chaves Attending physician on admission: Hugo Chaves Condition: Stable
[2024-04-08 11:32] LABS: Glucose Point of Care 156 mg/dl (65-105)
--- NOTE | 2024-04-08 15:14 | P.PNGI_ITS ---
Progress Note: A&P Assessment and Plan (1) Epigastric abdominal pain: Code(s): R10.13 - Epigastric pain Status: Acute Assessment and Plan: clinically better, she is going home today she can follow-up office in 3-4 weeks (2) Chronic pancreatitis: Onset Date: ~09/02/23 Qualifiers: Pancreatitis type: other Qualified Code(s): K86.1 - Other chronic pancreatitis Code(s): K86.1 - Other chronic pancreatitis Status: Chronic Assessment and Plan: probably from DM and high TG level (3) Nausea & vomiting: Code(s): R11.2 - Nausea with vomiting, unspecified Status: Acute Assessment and Plan: will order GES as outpatient, in the meantime will prescribe reglan with meals (4) GERD (gastroesophageal reflux disease): Qualifiers: Esophagitis presence: esophagitis presence not specified Qualified Code(s): K21.9 - Gastro-esophageal reflux disease without esophagitis Code(s): K21.9 - Gastro-esophageal reflux disease without esophagitis Status: Acute (5) Hypertriglyceridemia: Code(s): E78.1 - Pure hyperglyceridemia Status: Acute Subjective Date/time seen: 04/08/24 15:14 Interval history: eating more and less nauseous Review of Systems Review of Systems: All systems reviewed & are unremarkable except as noted in HPI and below Exam Const: General: comfortable and no acute distress HENMT: Face/Nose/Sinus: Normal nares present Eyes: General: appearance normal, both eyes and all related structures Neck: Neck: no JVD Resp: Auscultation: clear to auscultation bilaterally Cardio: Rate: regular rate Rhythm: regular rhythm GI: Inspection: non-distended GI Palp: Yes Soft to palpation and No Tendern ess to palpation present (GI) Auscultation: normal bowel sounds Skin: General skin exam: normal color Neuro: Speech: normal speech Motor exam (neuro): 5/5 motor strength present throughout Extrem: General: normal to inspection Psych: Mental Status: mental status grossly normal Objective Data Vital Signs Vital Signs: Vital Signs - 24 hr 04/07/24 21:31 04/08/24 06:25 04/08/24 08:00 Temperature 98.3 F 97.6 F 97.2 F L Pulse Rate 70 81 82 Respiratory Rate 16 20 18 Blood Pressure 129/76 99/59 L 102/53 L Pulse Oximetry 98 99 98 Oxygen Delivery 04/08/24 08:00 04/08/24 10:20 Temperature Pulse Rate 80 Respiratory Rate Blood Pressure Pulse Oximetry Oxygen Delivery Room Air Intake/Output Intake/Output: Intake & Output 04/05/24 04/06/24 04/07/24 04/08/24 23:59 23:59 23:59 23:59 Intake Total 1010 2600 1960 340 Balance 1010 2600 1960 340 Meds/Results Medications: Active Medications Generic Name Dose Route Start Last Admin Trade Name Freq PRN Reason Stop Dose Admin Acetaminophen 650 mg 04/02/24 10:58 04/07/24 13:03 Acetaminophen 325 Mg Tablet PO 650 mg Q6H PRN Administration Mild Pain (1-3) or Fever Alteplase, Recombinant 2 mg 04/07/24 11:09 Alteplase 2 Mg Vial (Cathflo) IV PUSH ONCE PRN Line Occlusion Lipase/Protease/Amylase 6 cap 03/31/24 17:00 04/08/24 13:16 Lipase/Amylase/Protease 12,000 Units Cap PO Not Given TIDWM RAPHAEL Lipase/Protease/Amylase 3 cap 03/31/24 15:24 Lipase/Amylase/Protease 12,000 Units Cap PO PRN PRN WITH SNACKS ONLY Aspirin 81 mg 04/01/24 09:00 04/08/24 10:20 Aspirin 81 Mg Enteric Tablet PO 81 mg QAM RAPHAEL Administration Atorvastatin Calcium 80 mg 03/31/24 21:00 04/07/24 21:18 Atorvastatin 40 Mg Tablet PO 80 mg HS RAPHAEL Administration Bupropion HCl 150 mg 03/31/24 21:00 04/07/24 21:19 Bupropion Hcl Sr (12 Hr) 150 Mg Tab PO 150 mg HS RAPHAEL Administration Citalopram Hydrobromide 40 mg 04/01/24 09:00 04/08/24 10:20 Citalopram Hydrobromide 20 Mg Tablet PO 40 mg DAILY RAPHAEL Administration Dextrose 12.5 gm 03/31/24 10:10 Dextrose 50% 25 Gm/50 Ml Syringe IV PUSH PRN PRN Hypoglycemia Protocol Diphenhydramine HCl 25 mg 04/04/24 14:20 04/08/24 10:35 Diphenhydramine Hcl Cap 25 Mg Capsule PO 25 mg Q6H PRN Administration Itching Docusate Sodium 100 mg 04/04/24 21:00 04/08/24 10:21 Docusate Sodium 100 Mg Capsule PO 100 mg Q12HR RAPHAEL Administration Enoxaparin Sodium 40 mg 04/04/24 09:00 04/08/24 10:22 Enoxaparin 40 Mg/0.4 Ml Syringe SUB-Q 40 mg DAILY RAPHAEL Administration Fenofibrate 160 mg 04/01/24 09:00 04/08/24 10:21 Fenofibrate 160 Mg Tablet PO 160 mg DAILY RAPHAEL Administration Glucagon 1 mg 03/31/24 10:10 Glucagon For Inj 1 Mg Vial IM PRN PRN Hypoglycemia Protocol Glucose 15 gm 03/31/24 10:10 Glucose Oral Gel 15 Gm Of Glucse In 37.5 Gm Tube PO PRN PRN Hypoglycemia Protocol Home Med 1 each 04/01/24 06:00 04/02/24 09:37 Home Medication XX 05/01/24 05:59 1 each DAILY@0600 RAPHAEL Administration Dextrose 1,000 mls @ 100 mls/hr 03/31/24 10:10 Dextrose 5% 1,000 Ml IVPB PRN PRN Hypoglycemia Protocol Lactulose 20 gm 04/06/24 13:20 04/08/24 10:22 Lactulose 20 Gm/30 Ml Udc PO 20 gm BID RAPHAEL Administration Levothyroxine Sodium 200 mcg 04/01/24 06:30 04/08/24 05:35 Levothyroxine Sodium 100 Mcg Tablet PO 200 mcg DAILY@0630 RAPHAEL Administration Lorazepam 1 mg 03/31/24 14:45 04/07/24 21:36 Lorazepam (*Crx) 1 Mg Tablet PO 1 mg QHS PRN Administration sleep Metoclopramide HCl 5 mg 04/07/24 17:16 Metoclopramide Hcl 5 Mg Tablet PO ACHS PRN Nausea And Vomiting Metoprolol Succinate 12.5 mg 04/01/24 09:00 04/08/24 10:20 Metoprolol Succinate Ext Rel 12.5 Mg Tabcr PO 12.5 mg DAILY RAPHAEL Administration Naloxone HCl 0.1 mg 03/31/24 21:37 Naloxone Hcl 0.4 Mg/Ml Vial IV PUSH Q5MIN PRN Sedation Ondansetron HCl 4 mg 03/31/24 07:02 04/08/24 14:57 Ondansetron Inj 4 Mg/2 Ml Vial IV PUSH 4 mg Q4H PRN Administration Nausea Pantoprazole Sodium 40 mg 04/05/24 09:00 04/08/24 10:21 Pantoprazole 40 Mg Tablet PO 40 mg QAM RAPHAEL Administration Ticagrelor 90 mg 03/31/24 21:00 04/08/24 10:21 Ticagrelor 90 Mg Tablet PO 90 mg Q12HR RAPHAEL Administration Tramadol HCl 25 mg 04/06/24 13:43 04/08/24 10:31 Tramadol Hcl (*Crx) 25 Mg Tablet PO 25 mg Q6H PRN Administration Pain Rated 4-6 Trazodone HCl 200 mg 03/31/24 21:00 04/07/24 21:17 Trazodone Hcl 50 Mg Tablet PO 200 mg HS RAPHAEL Administration Radiology Results: ITS Impressions Chest X-Ray 04/02/24 13:16 IMPRESSION: 1. No acute cardiopulmonary disease. Venous Doppler Study 04/02/24 15:51 IMPRESSION: 1. No deep venous thrombosis. Abdomen/Pelvis CT 04/07/24 10:02 IMPRESSION: 1. No acute intra-abdominal/pelvic process. 2. Nonobstructing 1-2 mm left renal stone. Labs Labs: Laboratory Results - last 24 hr 04/07/24 04/07/24 04/08/24 16:31 20:38 07:28 POC Capillary Glucose 144 H 132 H 165 H 04/08/24 11:26 POC Capillary Glucose 156 H
[2024-04-08 15:56] VITALS: BP 128/79; PULSE 89; RESP 18; TEMP 36.3; O2SAT 98
== END 2024-04-08 17:00 | disposition home or self-care (01) | DRG 440 ==
LOC: ANHED 03-31 07:02 → ANH3MEDSUR 03-31 08:11 → ANHOB2 04-01 15:05 → ANHIMU 04-02 16:54 → ANH3MEDSUR 04-04 18:19
PROVIDERS: Internal Medicine; Admitting Provider Internal Medicine; Emergency Provider Emergency Medicine; PCP Nurse Practitioner; Visit Provider Internal Medicine
DX: K85.90 Acute pancreatitis without necrosis or infection, unspecified (principal); K86.1 Other chronic pancreatitis; E11.9 Type 2 diabetes mellitus without complications; E78.1 Pure hyperglyceridemia; E78.5 Hyperlipidemia, unspecified; E78.3 Hyperchylomicronemia; E03.9 Hypothyroidism, unspecified; F17.210 Nicotine dependence, cigarettes, uncomplicated; I25.2 Old myocardial infarction; I25.10 Atherosclerotic heart disease of native coronary artery without angina pectoris; K21.9 Gastro-esophageal reflux disease without esophagitis; K59.00 Constipation, unspecified; R07.89 Other chest pain; Z95.5 Presence of coronary angioplasty implant and graft; Z79.4 Long term (current) use of insulin; Z90.49 Acquired absence of other specified parts of digestive tract; Z79.84 Long term (current) use of oral hypoglycemic drugs; Z79.82 Long term (current) use of aspirin
CPT/HCPCS: 36415; 71045; 74177; 80053; 80069; 81003; 81025; 82948; 83605; 83690; 83735; 84478; 84484; 85025; 85027; 85380; 86140; 93005; 93970; 96361; 96365; 96366; 96375; 96376; 97161; 97165; 99285; A9270; G0378; J1171; J1200; J1644; J1650; J2270; J2405; J2470; J3475; J7030; J7042; Q9967

== ENCOUNTER 2024-04-26 16:52 | Emergency (ER) | payer MEDICARE, SELFPAY ==
[2024-04-26 16:54] VITALS: BP 133/72; PULSE 109; RESP 18; TEMP 36.6; O2SAT 100
[2024-04-26 17:55] VITALS: RESP 17
--- NOTE | 2024-04-26 17:56 | ED_ITS ---
HPI - General Adult General Chief complaint: Unspecified Stated complaint: shoulder pain since november Time Seen by Provider: 04/26/24 17:45 Source: patient Mode of arrival: ambulatory Limitations: no limitations History of Present Illness HPI narrative: This is a 40-year-old female who presents to the ED for chief complaint of acute on chronic left shoulder pain. States that she is currently undergoing workup with Orthopedics but the MRI was delayed due to her having heart stent placed in October. States that she cannot move the shoulder without pain. States that she had frozen shoulder and received a cortisone injection in February and that had minimal relief. She does report having some relief with steroid Dosepak back in December. Denies numbness, weakness, fevers, chills, nausea, vomiting or any injury to the shoulder. Related Data Home Medications ?Medication ?Instructions ?Recorded ?Confirmed ?Last Taken ?Type levothyroxine 200 mcg tablet 200 mcg PO DAILY 07/21/23 03/31/24 03/30/24 History suajwl-muzyxfrd-hfidlid 2 cap PO TIDWMEAL 07/22/23 03/31/24 03/30/24 History 36,000-114,000-180,000 unit capsule,delay rel (Creon) citalopram 40 mg tablet 40 mg PO DAILY 08/31/23 03/31/24 03/30/24 History bupropion HCl 150 mg tablet,12 hr 150 mg PO HS 10/09/23 03/31/24 03/29/24 History sustained-release insulin aspart U-100 100 unit/mL See Rx Instructions .Route .COMPLEX 03/31/24 03/31/24 03/31/24 History subcutaneous solution (Novolog U-100 Insulin aspart) metoprolol succinate 25 mg 12.5 mg PO DAILY 03/31/24 03/31/24 03/30/24 History tablet,extended release 24 hr Allergies Allergy/AdvReac Type Severity Reaction Status Date / Time adhesive tape Allergy Mild Rash Verified 04/26/24 17:57 [place] pepper (green pepper) Allergy Unknown Hives Verified 04/26/24 17:57 sucralose (From Splenda Allergy Migraine Verified 04/26/24 17:57 (sucralose)) Artificial Sweetners AdvReac Migraine Uncoded 04/26/24 17:57 Review of Systems Review of Systems: All systems as dictated in HPI PMFSH Past Medical History Medical History Abnormal CT scan, esophagus Allergic rhinitis Anxiety Chronic pancreatitis (~09/02/23) Chylomicronemia syndrome Colon cancer screening GERD (gastroesophageal reflux disease) Headache Hx of nursing home use of blood thinners Hyperlipemia Hypertriglyceridemia Hypertriglyceridemia 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 Nausea Occult blood in stools PCOS (polycystic ovarian syndrome) Port-A-Cath in place Thyroid disorder Surgical History Surgical History History of appendectomy History of conization of cervix History of dilatation and curettage History of endometrial ablation History of exploratory laparotomy History of loop electrical excision procedure (LEEP) History of partial hysterectomy History of tonsillectomy History of tubal ligation History of wisdom tooth extraction Family History Family History Father Alcohol abuse Hypercholesteremia Hypertension Family history of alcoholism Family history of cardiovascular disease Diabetes mellitus Mother Hypercholesteremia Hypothyroid Cerebrovascular accident Family history of cardiovascular disease Diabetes mellitus Grandparent Skin cancer Colon cancer Heart disease Hypothyroid Cerebrovascular accident Sibling Autoimmune disorder Hypothyroid Kidney disorder Hypertension Diabetes mellitus Mother Family history of diabetes mellitus in first degree relative Family history of thyroid disease Father Family history of diabetes mellitus in first degree relative Patient's father is Other Family history of kidney disease Social History Social History Social History: She smokes a pack a day for the past 30 years. No alcohol or drug use. She has 2 dogs and a cat at home. Surrogate medical decision maker: José Miguel Jones, spouse. Code status: Full Smoking packs per day: 1 Smoking cigarettes per day: 20.0 Years smoked: 32 Smoking pack-years: 32.00 Smoking status: Current every day smoker Second hand tobacco smoke exposure: No Alcohol intake: never Drinks per week: 0 Substance use: never Substance use type: does not use Do You Feel Safe in your Home?: Yes Lack of Transportation: No Lack of Food: Never True Current Housing: I Have Housing Concerned About Future Housing: No Difficulty Paying Gas/Electric Bills: No Difficulty Paying for Meds: No Currently Unemployed: No Education: Associate Degree Difficulty w/ Childcare or Family Care: No Living arrangements: with family Spiritual care concerns: No Exam Narrative: GENERAL: Well-appearing, well-nourished, and in no acute distress. HEAD: Normocephalic, atraumatic. EYES: PERRLA and EOMI. ENT: Nares clear, no rhinorrhea or epistaxis. Mucous membranes moist. Oropharynx without tonsillar hypertrophy exudate or other lesions. NECK: Supple. No adenopathy or masses. CHEST: No respiratory distress. Clear to auscultation. No wheezes rales or rhonchi HEART: Regular rate and rhythm. No murmur heard. Normal peripheral pulses. ABDOMEN: Soft, nontender, nondistended, normal active bowel sounds. MSK: RUE: Benign LUE: Significantly limited range of motion of shoulder due to pain. No warmth, effusion to the joint. Vascular intact distally. SKIN: Warm, dry, no rash. NEURO: Alert and oriented x4. No focal deficits. PSYCH: Normal mood and affect. Course Vital Signs Vital signs: Vital Signs Temperature 97.9 F 04/26/24 16:54 Pulse Rate 109 H 04/26/24 16:54 Respiratory Rate 18 04/26/24 16:54 Blood Pressure 133/72 04/26/24 16:54 Pulse Oximetry 100 04/26/24 16:54 Temperature 97.9 F 04/26/24 16:54 Pulse Rate 109 H 04/26/24 16:54 Respiratory Rate 17 04/26/24 17:55 Blood Pressure 133/72 04/26/24 16:54 Pulse Oximetry 100 04/26/24 16:[address] [facility] Narrative Medical decision making narrative: This is a 40-year-old female who presents for chronic left shoulder pain. Vitals are normal. Exam remarkable for the above. Patient was given Toradol shot and [place] dose here. No indication for further testing or imaging today. Rx for Medrol Dosepak and cyclobenzaprine given. Patient will be discharged in stable condition. Supportive measures discussed and return precautions given. Patient is understanding and agreeable with plan for discharge with PCP follow-up. Vital Signs Vital Signs: Vital Signs Temperature 97.9 F 04/26/24 16:54 Pulse Rate 109 H 04/26/24 16:54 Respiratory Rate 18 04/26/24 16:54 Blood Pressure 133/72 04/26/24 16:54 Pulse Oximetry 100 04/26/24 16:54 Temperature 97.9 F 04/26/24 16:54 Pulse Rate 109 H 04/26/24 16:54 Respiratory Rate 17 04/26/24 17:55 Blood Pressure 133/72 04/26/24 16:54 Pulse Oximetry 100 04/26/24 16:54 Discharge Plan Discharge Clinical Impression: Chronic left shoulder pain Patient Disposition: Home, Self-Care Condition: Stable Instructions: Antibiotic Form Additional Instructions: Your evaluated today for chronic left shoulder pain. Please take Medrol Dosepak and muscle relaxer as prescribed. Continue with Tylenol arthritis and naproxen at home. Follow-up with your orthopedic physician on this issue. If you have any new or worsening symptoms please return to the ER for further evaluation. Patient Language: Argentine Prescriptions: New methylprednisolone [Medrol (Marcellus)] 4 mg tablets,dose pack See Rx Instructions .ROUTE .COMPLEX Qty: 21 0RF Rx Instructions: for 6 days cyclobenzaprine 10 mg tablet 10 mg PO HS PRN (Reason: muscle spasm) Qty: 10 0RF methylprednisolone [Medrol (Marcellus)] 4 mg tablets,dose pack See Rx Instructions .ROUTE .COMPLEX Qty: 21 0RF Rx Instructions: for 6 days cyclobenzaprine 10 mg tablet 10 mg PO HS PRN (Reason: muscle spasm) Qty: 10 0RF No Action metformin 500 mg tablet 1,000 mg PO BID Qty: 180 1RF Rx Instructions: with morning & evening meals pantoprazole [Protonix] 40 mg tablet,delayed release (DR/EC) 40 mg PO BID Qty: 30 0RF levothyroxine 200 mcg tablet 200 mcg PO DAILY Creon 36,000-114,000- 180,000 unit capsule,delayed release(DR/EC) 2 cap PO TIDWMEAL Rx Instructions: Take 2 capsules with meals and 1 capsule with any snacks. aspirin 81 mg Tablet,Delayed Release (Dr/Ec) 81 mg PO QAM Qty: 30 0RF citalopram 40 mg tablet 40 mg PO DAILY Rx Instructions: TAKE 1 TABLET BY MOUTH EVERY DAY bupropion HCl 150 mg tablet sustained-release 12 hr 150 mg PO HS fenofibrate 160 mg Tablet 160 mg PO DAILY 30 Days Qty: 30 1RF ondansetron 4 mg tablet,disintegrating 4 mg PO Q8H PRN (Reason: nausea and vomiting) Qty: 10 0RF insulin aspart U-100 [Novolog U-100 Insulin aspart] 100 unit/mL solution See Rx Instructions .ROUTE .COMPLEX Rx Instructions: infused via insulin pump metoprolol succinate 25 mg tablet extended release 24 hr 12.5 mg PO DAILY docusate sodium 100 mg Capsule 100 mg PO Q12HR PRN (Reason: constipation) Qty: 20 0RF Brilinta 90 mg tablet 90 mg PO BID Qty: 180 0RF (DME) pen needle, diabetic [BD Ultra-Fine Diandra Pen Needle] 32 gauge x 5/32 needle See Rx Instructions .ROUTE .MEDSUPPLY Qty: 1200 12RF Rx Instructions: 4 times daily (DME) insulin syringe-needle U-100 [BD Insulin Syringe Ultra-Fine] 0.3 mL 31 gauge x 5/16 syringe See Rx Instructions .ROUTE .MEDSUPPLY Qty: 100 12RF Rx Instructions: 4 times a day trazodone 100 mg tablet 200 mg PO HS Qty: 180 1RF atorvastatin 80 mg tablet 80 mg PO HS Qty: 90 1RF lorazepam 1 mg tablet 1 mg PO QHS PRN (Reason: sleep) Qty: 90 0RF metoclopramide HCl 5 mg tablet 5 mg PO Q6H PRN (Reason: nausea and vomiting) Qty: 60 0RF Follow-up/Referrals: Jose Zuniga APRN [Primary Care Provider] - Time of Disposition: 18:04
[2024-04-26] MEDS: KETOROLAC 30 MG/ML VIAL (*BKC) IM (18:05)
[2024-04-26] MEDS: HYDROcodone/acetaminophen (*CRX) 5-325 MG TABLET 1 TAB PO (18:06)
[2024-04-26 18:16] VITALS: BP 142/89; PULSE 86; RESP 17; O2SAT 99
--- OUTSIDE RECORDS SUMMARY | 2024-05-03 20:33 | XMS_ITS | Clinical Summary ---
Author Organization [facility] Address [address] [place] [id number] Care Team Providers Care Emergency Medcl Emt Name Role Phone Mauri Jaime MD Primary Care Provider [phone] Guerrero Middleton PA Unavailable [phone] Allergies Active Allergy Reactions Criticality Noted Date Comments Adhesive Tape-Silicones Hives High 02/10/2018 Aspartame Headache Low 05/16/2018 [place] Pepper Hives High 02/10/2018 Medications blood-glucose sensor (Dexcom G6 Sensor) device Change sensor every 10 days. (9 sensors = 90 days) 021 Active cholecalciferol (Delta D3) 400 unit capsule 10/12/2014Vitamin d, po solid 400 unit TabletPOdailyCurrent Medication 015 Active citalopram (CeleXA) 40 mg tablet Take 1 tablet (40 mg total) by mouth daily 021 Active doxepin 6 mg tablet Take 1 tablet by mouth nightly at bedtime 024 Active empagliflozin (JARDIANCE) 25 mg tablet TAKE 1 TABLET BY MOUTH EVERY UNIT MANAGER 022 Active fenofibrate (TRIGLIDE) 160 mg tablet Take 1 tablet (160 mg total) by mouth daily 015 Active HYDROcodone-aceta minophen (NORCO) 10-325 mg per tablet Take 1 tablet by mouth every 6 (six) hours as needed 024 Active insulin aspart (NovoLOG) 100 unit/mL (3 mL) pen for injection INJECT APPROXIMATELY 50 UNITS A DAY PER CORRECTION DOSE WITH MEALS Active TRESIBA 200 unit/mL (3 mL) pen for injection INJECT 36 UNITS SUBCUTANEOUSLY IN THE MORNING Active levothyroxine (SYNTHROID) 200 mcg tablet Take 1 tablet (200 mcg total) by mouth daily Active LORazepam (ATIVAN) 0.5 mg tablet TAKE 1 TABLET BY MOUTH ONCE DAILY NEEDED FOR ANXIETY Active metFORMIN (GLUCOPHAGE) 1,000 mg tablet Take 1 tablet (1,000 mg total) by mouth Active ondansetron ODT (ZOFRAN-ODT) 4 mg disintegrating tablet Take 1 tablet (4 mg total) by mouth every 6 (six) hours as needed Active pantoprazole DR (PROTONIX) 40 mg EC tablet Take 1 tablet (40 mg total) by mouth 2 (two) times a day Active rosuvastatin (CRESTOR) 20 mg tablet Take 1 tablet (20 mg total) by mouth daily Act amanda traZODone (DESYREL) 100 mg tablet Take by mouth nightly Active Surgical History Surgery Date Site/Laterality Comments APPENDECTOMY HYSTERECTOMY TUBAL LIGATION TONSILLECTOMY EXPLORATORY LAPAROTOMY UPPER GASTROINTESTINAL ENDOSCOPY COLONOSCOPY Medical History Medical History Date Comments Diabetes mellitus (HCC) Chylomicronemia syndrome Necrotizing pancreatitis Type 2 diabetes mellitus (HCC) History of transfusion Family History Medical History Relation Name Comments Colon cancer Maternal Grandfather Relation Name Status Comments Maternal Grandfather Social History Tobacco Use Types Packs/Day Years Used Date Smoking Tobacco: Every Day Cigarettes Tobacco Cessation:Ready to Q uit: Not Asked; Counseling Given: Not Answered AUDIT-C Answer Date Recorded Q1: How often do you have a drink containing alc ohol? Monthly or less 06/05/2023 Q2: How many drinks containi ng alcohol do you have on a typical day when you are drinking? 1 or 2 06/05/2023 Q3: How often do you have si x or more drinks on one occasion? Never 06/05/2023 Personal Safety Answer Date Recorded Have you ever been in or are you currently in a harmful physical or emotional relationship or is someone making you feel afraid or unsafe? Denies 06/05/2023 Comments No Sex and Gender Information Value Date Recorded Sex Assigned at Not on file Legal Sex Female 5:05 AM ORTHOTIC PRACTITIONER Gender Identity Not on file Sexual Orientation Not on file Obstetrics History Last Filed Vital Signs Vital Sign Reading Time Taken Comments Blood Pressure 101/62 06/05/2023 11:38 AM ORTHOTIC PRACTITIONER Pulse 76 06/05/2023 11:38 AM ORTHOTIC PRACTITIONER Temperature 36.4 ??C (97.5 ??F) 06/05/2023 10:[address] Respiratory Rate 22 06/05/2023 11:38 AM ORTHOTIC PRACTITIONER Oxygen Saturation 94% 06/05/2023 11:38 AM ORTHOTIC PRACTITIONER Inhaled Oxygen Concentration - - Weight 81.6 kg (180 lb) 06/05/2023 8:58 AM ORTHOTIC PRACTITIONER Height 165.1 cm (5' 5 ) 06/05/2023 8:58 AM ORTHOTIC PRACTITIONER Body Mass Index 29.95 06/05/2023 8:58 AM ORTHOTIC PRACTITIONER Plan of Treatment Health Maintenance Due Date Last Done Comments Breast Cancer Screening-Mammogram 1975 Colon Cancer Screening-Colonoscopy 1975 Depression Screening 1975 Hepatitis C Screening 1975 DTaP/Tdap/Td Vaccine (1 - Tdap) 11/24/1986 Hepatitis B Screening 11/24/1993 Regular Well Visit/Exam 18-64 11/24/1993 Pneumococcal vaccine <65 (2 of 2 - PPSV23 or PCV20) 07/04/2016 05/09/2016 Covid-19 Vaccine (5 - 2023-2 5 season) 2023 03/08/2023, 03/04/2021, 07/20/2020, Additional history exists Influenza Vaccine (#1) 2023 , 04/09/2022, 03/04/2021, Additional history exists Insurance [facility] [employer] [facility] [employer] Care Teams Emergency Medcl Emt Relationship Specialty Start Date End Date Mauri Jaime MD [address] [address] PCP - General Internal Medicine 05/28/23 Guerrero Middleton PA [address] [address] 05/28/23
--- OUTSIDE RECORDS SUMMARY | 2024-05-03 20:33 | XMS_ITS | Encounter Summary ---
Author Organization [facility] Address [address] [place] [address] Care Team Providers Care Real Estate Professor Name Role Phone Jose G Palmer MD Unavailable [phone] Guerrero Middleton Primary Care Provider Encounter Details Date Type Department Care Team (Late st Contact Info) Description 05/08/2021 Lab Requisition [facility] Testing [facility] [address] [place] [address] Jeff Petersen MD [address] [place] [address] [place] [place] [address] Social History Tobacco Use Types Packs/Day Years Used Date Smoking Tobacco: Never Assessed Comments Unknown Sex and Gender Information Value Date Recorded Sex Assigned at Not on file Legal Sex Female 10:54 AM CDT Gender Identity Not on file Sexual Orientation Not on file documented as of this encounter Plan of Treatment Not on file documented as of this encounter Procedures Procedure Name Priority Date/Time Associated Diagnosis Comments SARS-COV-2 PCR [facility] ONLY Routine 05/08/2021 1:49 PM COMMUNITY RELATIONS LIAISON documented in this encounter Visit Diagnoses Not on filedocumented in this encounter Care Teams Real Estate Professor Relationship Specialty Start Date End Date Guerrero Middleton PAC [address] [place] [address] PCP - General Physician Special Education Secretary 12/10/16 Jose G Palmer MD Consulting Physician Gastroenterology 12/10/16 documented as of this encounter
--- OUTSIDE RECORDS SUMMARY | 2024-05-03 20:33 | XMS_ITS | Clinical Summary ---
Author Organization [facility] Address [address] [address] Phone Care Team Providers Care Car Cleaner Name Role Phone Jose G Palmer MD Unavailable [phone] Guerrero Middleton Primary Care Provider Social History Tobacco Use Types Packs/Day Years Used Date Smoking Tobacco: Never Assessed Comments Unknown Sex and Gender Information Value Date Recorded Sex Assigned at Not on file Legal Sex Female 10:54 AM CDT Gender Identity Not on file Sexual Orientation Not on file Plan of Treatment Health Maintenance Due Date Last Done Comments Hepatitis C Virus (HCV) Screening 1975 TdaP Immunization 1975 Hepatitis B Immunization (1 of 3 - 19+ 3-dose series) 11/24/1994 Pap Smear 11/24/1996 Cervical Cancer Screening (CCS) 11/24/2005 HPV/Cotest 11/24/2005 Discussion re Starting/Frequency of Mammograms 2015 Colonoscopy 11/24/2020 Colorectal Cancer Screening 11/24/2020 SARS-COV-2 Immunization ( season) 2022 03/04/2021, 07/20/2020, 06/28/2020 Influenza Immunization (Seas on Ended) 2023 03/04/2021 Meningococcal Immunization (ACWY) Aged Out No longer eligible b ased on patient's age to complete this topic Pneumococcal Immunization Combined Aged Out No longer eligible b ased on patient's age to complete this topic Rotavirus Immunization Aged Out No lo nger eligible based on patient's age to complete this topic Insurance [facility] Care Teams Car Cleaner Relationship Specialty Start Date End Date Guerrero Middleton PAC [address] [facility] [address] [place] [address] PCP - General Physician Technical Sales Support Specialist 12/10/16 Jose G Palmer MD Consulting Physician Gastroenterology 12/10/16
--- OUTSIDE RECORDS SUMMARY | 2024-05-03 20:33 | XMS_ITS | Encounter Summary ---
Author Organization [facility] Address [address] [place] [address] Care Team Providers Care Automatic Lathe Operator Name Role Phone Jose G Palmer MD Unavailable [phone] Guerrero Middleton Primary Care Provider Encounter Details Date Type Department Care Team (Late st Contact Info) Description 05/08/2021 11:30 AM ADJUNCT PROFESSOR OF VOICE Rapid Evaluation [facility] [place] [facility] Community Testing [facility] [address] [place] [address] Social History Tobacco Use Types Packs/Day Years Used Date Smoking Tobacco: Never Assessed Comments Unknown Sex and Gender Information Value Date Recorded Sex Assigned at Not on file Legal Sex Female 10:54 AM CDT Gender Identity Not on file Sexual Orientation Not on file documented as of this encounter Plan of Treatment Not on file documented as of this encounter Visit Diagnoses Not on filedocumented in this encounter Care Teams Automatic Lathe Operator Relationship Specialty Start Date End Date Guerrero Middleton PAC [address] [place] [address] PCP - General Physician Drug Room Operator 12/10/16 Jose G Palmer MD Consulting Physician Gastroenterology 12/10/16 documented as of this encounter
--- OUTSIDE RECORDS SUMMARY | 2024-05-03 20:34 | XMS_ITS | Encounter Summary ---
Author Organization [facility] Healthcare Address [address] [place] [address] Care Team Providers Care Stamp Presser Name Role Phone Mauri Jaime MD Primary Care Provider [phone] Guerrero Middleton Unavailable [phone] Encounter Details Date Type Department Care Team (Late st Contact Info) Description 09/13/2023 Telephone [facility] Medical Group Cardiology [address] [facility] [address] [place] [address] Beverly Castillo NP [address] [place] [address] Social History Tobacco Use Types Packs/Day Years Used Date Smoking Tobacco: Every Day Cigarettes AUDIT-C Answer Date Recorded Q1: How often [...] on file Legal Sex Female 5:05 AM WIRER Gender Identity Not on file Sexual Orientation Not on file documented as of this encounter Miscellaneous Notes * Telephone Encounter - Nia Hazel RN - 09/16/2023 10:46 AM CDT Spoke with MA at [facility] office. Note below reviewed in detail. She will discuss with AM. * Telephone Encounter - Nia Hazel RN - 09/13/2023 2:55 PM CDT Discussed pt with CT. Pt should be seen by an academic facility rather than community compensation expert as well as lipid/ plant specialist at [facility]. If PCP would like to place a monitor , he may do so , and they may also want to do orthostatic BPs. Lm on VM for PCP requesting call back to discuss. Pt appt should be cancelled for our office. Pt updated on plan as well. Requested she follow up with Guerrero danielson next week. * Telephone Encounter - Nia Hazel RN - 09/13/2023 12:44 PM CDT Spoke with pt. Pt was admitted to in June and seen by our practice. Admitted again in August from 07-03 and has passed out again 2 times since DC. She saw Dr Bowers this last admission. Pt has an unusual lipid disorder her previous compensation expert was trying to get her in at [facility] for. Call placed to for last admit records and DC summary from June visit. Pt has already made an appt to see Ct on 09.25 but will discuss with MDs and CT for appropriateness of visit. * Telephone Encounter - Jennifer Lan - 09/13/2023 12:00 PM CDT Pt called to schedule f/u and to report she has passed out twice since 09/02 and her PCP advised her to follow up with compensation expert. Requesting call back to discuss. Contact: documented in this encounter Plan of Treatment Not on file documented as of this encounter Visit Diagnoses Not on filedocumented in this encounter Care Teams Stamp Presser Relationship Specialty Start Date End Date Mauri Jaime MD [address] [place] [address] PCP - General Internal Medicine 05/28/23 Guerrero Middleton PA [address] [place] [address] 05/28/23 documented as of this encounter
--- OUTSIDE RECORDS SUMMARY | 2024-05-03 20:34 | XMS_ITS | Encounter Summary ---
Author Organization [facility] Healthcare Address [address] [place] [address] Care Team Providers Care Auto Mechanics Teacher Name Role Phone Mauri Jaime MD Primary Care Provider [phone] Guerrero Middleton Unavailable [phone] Encounter Details Date Type Department Care Team (Latest Contact Info) Description 05/28/2023 11:43 PM DECORATING INSPECTOR - 05/28/2023 11:59 PM DECORATING INSPECTOR Hospital Encounter [facility] [address] [place] [id number] Diagnosis unknown Discharge Disposition: Discharge to home or self care Social History Tobacco Use Types Packs/Day Years Used Date Smoking Tobacco: Never Assessed Personal Safety Answer Date Recorded Getting School Help Needed Not on file 05/29 Comments Unknown Sex and Gender Information Value Date Recorded Sex Assigned at Not on file Legal Sex Female 5:05 AM DECORATING INSPECTOR Gender Identity Not on file Sexual Orientation Not on file documented as of this encounter Medications at Time of Discharge blood-glucose sensor (Dexcom G6 Sensor) device Change sensor every 10 days. (9 sensors = 90 days) 05/16/19 21 cholecalciferol (Delta D3) 400 unit capsule 10/12/2014Vitamin d, po solid 400 unit TabletPOdailyCurrent Medication 10/13/19 15 citalopram (CeleXA) 40 mg tablet Take 1 tablet (40 mg total) by mouth daily 11/02/19 21 doxepin 6 mg tablet Take 1 tablet by mouth nightly at bedtime 05/31/19 24 empagliflozin (JARDIANCE) 25 mg tablet TAKE 1 TABLET BY MOUTH EVERY AMMUNITION ASSEMBLY LABORER 06/01/19 22 fenofibrate (TRIGLIDE) 160 mg tablet Take 1 tablet (160 mg total) by mouth daily 10/13/19 15 HYDROcodone-acetam inophen (NORCO) 10-325 mg per tablet Take 1 tablet by mouth every 6 (six) hours as needed 05/10/19 24 insulin aspart (NovoLOG) 100 unit/mL (3 mL) pen for injection INJECT APPROXIMATELY 50 UNITS A DAY PER CORRECTION DOSE WITH MEALS 06/01/19 22 levothyroxine (SYNTHROID) 200 mcg tablet Take 1 tablet (200 mcg total) by mouth daily 09/16/19 21 LORazepam (ATIVAN) 0.5 mg tablet TAKE 1 TABLET BY MOUTH ONCE DAILY NEEDED FOR ANXIETY metFORMIN (GLUCOPHAGE) 1,000 mg tablet Take 1 tablet (1,000 mg total) by mouth 05/01/19 22 ondansetron ODT (ZOFRAN-ODT) 4 mg disintegrating tablet Take 1 tablet (4 mg total) by mouth every 6 (six) hours as needed 05/21/[address] (PROTONIX) 40 mg EC tablet Take 1 tablet (40 mg total) by mouth 2 (two) times a day rosuvastatin (CRESTOR) 20 mg tablet Take 1 tablet (20 mg total) by mouth daily traZODone (DESYREL) 100 mg tablet Take by mouth nightly TRESIBA 200 unit/mL (3 mL) pen for injection INJECT 36 UNITS SUBCUTANEOUSLY IN THE MORNING documented as of this encounter Discharge Disposition Disposition Code Departure Means Destination Discharge to home or self care documented in this encounter Plan of Treatment Not on file documented as of this encounter Procedures Procedure Name Priority Date/Time Associated Diagnosis Comments CT BODY OUTSIDE CONSULT Routine 05/28/2023 11:43 PM DECORATING INSPECTOR Diagnosis unknown documented in this encounter Results * CT Body Outside Consult (05/28/2023 11:43 PM DECORATING INSPECTOR) Anatomical Region Laterality Modality Body N/A Computed Tomogra phy 05/29/2023 11:0 4 AM DECORATING INSPECTOR Impressions 05/29/2023 11:04 AM DECORATING INSPECTOR Trace free fluid along the pancreatic tail extending to the inferior margin of the spleen may represent sequelae of pancreatitis. ??No other significant abnormality. The findings, conclusions and recommendations within this report do not replace the initial findings, conclusions ??and recommendations made at the facility where the study was performed based upon the imaging and clinical condition at that time. ??Comparison with the prior report and clinical history is necessary. ??The provided images may or may not represent the [place] source data set and thus may contain changes that may lower the accuracy of this second-opinion interpretation. Electronically signed by: MD Phoebe Castellano 05/29/2023 11:04 AM DECORATING INSPECTOR EXAMINATION: RADIOLOGY CONSULTATION ON OUTSIDE IMAGING STUDY STUDY INITIALLY PERFORMED: 05/06/2023 at [facility]. TYPE OF STUDY: Multiple CT images of the abdomen and pelvis with IV contrast are provided at the time of this interpretation. CONTRAST ROUTE: Contrast was administered via the intravenous route. The protocol was adequate to address the clinical question. The outside final report was not available at the time of this second opinion interpretation. TYPE OF CONSULTATION: Consult on outside imaging study with images submitted through Outside Image Sharing Service DATE OF CONSULTATION: 05/29/2023 10:56 AM HISTORY: Chronic Pancreatitis from elevated triglycerides COMPARISON: CT abdomen 12/26/2006 FINDINGS: LOWER CHEST: LUNGS / AIRWAYS / PLEURA: Dependent atelectasis without suspicious pulmonary nodule. HEART / VESSELS: Partially visualized catheter tips at the cavoatrial junction. MEDIASTINUM / ESOPHAGUS: Normal. CHEST WALL: No significant abnormality. ABDOMEN and PELVIS: LIVER: No suspicious liver lesion. ?? BILIARY TRACT: Normal. GALLBLADDER: No abnormality. PANCREAS: The pancreas enhances normally without pancreatic ductal dilation or suspicious lesion. ??Trace free fluid is seen along the pancreatic tail extending to the inferior aspect of the spleen on series 6 on image 75. SPLEEN: The spleen is unremarkable. ADRENALS: Left adrenal nodularity. Normal right adrenal gland. KIDNEYS: Punctate nonobstructing left nephrolithiasis. LYMPH NODES: None enlarged. STOMACH / SMALL BOWEL: No abnormality. COLON / APPENDIX: Mild colonic diverticulosis. The appendix is not seen without inflammatory findings of appendicitis. PERITONEUM / MESENTERY: Normal. RETROPERITONEUM: Normal. VESSELS: Scattered calcified moderate aortoiliac vascular sclerosis. URINARY BLADDER: Normal. REPRODUCTIVE ORGANS: Hysterectomy. No suspicious adnexal lesion. BODY WALL: No significant abnormality. MUSCULOSKELETAL: No significant abnormality. Procedure Note Phoenix Mcclain MD - 05/29/2023 EXAMINATION: RADIOLOGY CONSULTATION ON OUTSIDE IMAGING STUDY STUDY INITIALLY PERFORMED: 05/06/2023 at [facility]. TYPE OF STUDY: Multiple CT images of the abdomen and pelvis with IV contrast are provided at the time of this interpretation. CONTRAST ROUTE: Contrast was administered via the intravenous route. The protocol was adequate to address the clinical question. The outside final report was not available at the time of this second opinion interpretation. TYPE OF CONSULTATION: Consult on outside imaging study with images submitted through Outside Image Sharing Service DATE OF CONSULTATION: 05/29/2023 10:56 AM HISTORY: Chronic Pancreatitis from elevated triglycerides COMPARISON: CT abdomen 12/26/2006 FINDINGS: LOWER CHEST: LUNGS / AIRWAYS / PLEURA: Dependent atelectasis without suspicious pulmonary nodule. HEART / VESSELS: Partially visualized catheter tips at the cavoatrial junction. MEDIASTINUM / ESOPHAGUS: Normal. CHEST WALL: No significant abnormality. ABDOMEN and PELVIS: LIVER: No suspicious liver lesion. BILIARY TRACT: Normal. GALLBLADDER: No abnormality. PANCREAS: The pancreas enhances normally without pancreatic ductal dilation or suspicious lesion. Trace free fluid is seen along the pancreatic tail extending to the inferior aspect of the spleen on series 6 on image 75. SPLEEN: The spleen is unremarkable. ADRENALS: Left adrenal nodularity. Normal right adrenal gland. KIDNEYS: Punctate nonobstructing left nephrolithiasis. LYMPH NODES: None enlarged. STOMACH / SMALL BOWEL: No abnormality. COLON / APPENDIX: Mild colonic diverticulosis. The appendix is not seen without inflammatory findings of appendicitis. PERITONEUM / MESENTERY: Normal. RETROPERITONEUM: Normal. VESSELS: Scattered calcified moderate aortoiliac vascular sclerosis. URINARY BLADDER: Normal. REPRODUCTIVE ORGANS: Hysterectomy. No suspicious adnexal lesion. BODY WALL: No significant abnormality. MUSCULOSKELETAL: No significant abnormality. IMPRESSION: Trace free fluid along the pancreatic tail extending to the inferior margin of the spleen may represent sequelae of pancreatitis. No other significant abnormality. The findings, conclusions and recommendations within this report do not replace the initial findings, conclusions and recommendations made at the facility where the study was performed based upon the imaging and clinical condition at that time. Comparison with the prior report and clinical history is necessary. The provided images may or may not represent the [place] source data set and thus may contain changes that may lower the accuracy of this second-opinion interpretation. Electronically signed by: Phoenix Mcclain MD Ang Tam MD IMG CT PROCEDURES Fin al Result documented in this encounter Visit Diagnoses Diagnosis Diagnosis unknown documented in this encounter Care Teams Auto Mechanics Teacher Relationship Specialty Start Date End Date Mauri Jaime MD [address] [place] [address] PCP - General Internal Medicine 05/28/23 Guerrero Middleton PA [address] [place] [address] 05/28/23 documented as of this encounter
--- OUTSIDE RECORDS SUMMARY | 2024-05-03 20:34 | XMS_ITS | Encounter Summary ---
Author Organization [facility] Address [address] [place] [address] Phone Care Team Providers Care Lottery Manager Name Role Phone Mauri Jaime MD Primary Care Provider [phone] Guerrero Middleton Unavailable [phone] Encounter Details Date Type Department Care Team (Late st Contact Info) Description 08/15/2023 Telephone [facility] Gastroenterology [address] [facility] [address] [place] [address] [place] [address] Matt Rees Social History Tobacco Use Types Packs/Day Years [...] on file Legal Sex Female 5:05 AM AIRCRAFT STRUCTURAL REPAIRER Gender Identity Not on file Sexual Orientation Not on file documented as of this encounter Miscellaneous Notes * Telephone Encounter - Matt Rees - 08/15/2023 1:34 PM CDT Lvm x5 to set MRI before ov with Dr. Galvez on 09/10/23 * Telephone Encounter - Matt Rees - 08/15/2023 1:34 PM CDT ----- Message from Manisha Resendiz RN sent at 06/05/2023 2:09 PM AIRCRAFT STRUCTURAL REPAIRER ----- Regarding: ROV + MRCP Hi Matt, Can you please coordinate the following from Dr. Galvez's recommendations: Return to my office in 3 months. MRCP prior to clinic visit. Thank you, CLAU Dyer BSN Clinical Nurse Coordinator, [facility] in [place], documented in this encounter Plan of Treatment Not on file documented as of this encounter Visit Diagnoses Not on filedocumented in this encounter Care Teams Lottery Manager Relationship Specialty Start Date End Date Mauri Jaime MD [address] [place] [address] PCP - General Internal Medicine 05/28/23 Guerrero Middleton PA [address] [place] [address] 05/28/23 documented as of this encounter
--- OUTSIDE RECORDS SUMMARY | 2024-05-03 20:34 | XMS_ITS | Encounter Summary ---
Author Organization [facility] Address [address] [place] [address] Phone Care Team Providers Care Animal Caregiver Name Role Phone Mauri Jaime MD Primary Care Provider [phone] Guerrero Middleton Unavailable [phone] Encounter Details Date Type Department Care Team (Late st Contact Info) Description 07/25/2023 Telephone [facility] Gastroenterology [address] [facility] [address] [place] [address] [place] [address] Matt Rees Social History Tobacco [...] on file Legal Sex Female 5:05 AM BEAM DEPARTMENT SUPERVISOR Gender Identity Not on file Sexual Orientation Not on file documented as of this encounter Miscellaneous Notes * Telephone Encounter - Matt Rees - 07/25/2023 10:44 AM CDT Lvm x4 to coordinate imaging. Sending letter. * Telephone Encounter - CabreraMatt - 07/25/2023 10:44 AM CDT ----- Message from Manisha Resendiz RN sent at 06/05/2023 2:09 PM BEAM DEPARTMENT SUPERVISOR ----- Regarding: ROV + MRCP Hi Matt, Can you please coordinate the following from Dr. Galvez's recommendations: Return to my office in 3 months. MRCP prior to clinic visit. Thank you, CLAU Dyer BSN Clinical Nurse Coordinator, [facility] in [place], documented in this encounter Plan of Treatment Not on file documented as of this encounter Visit Diagnoses Not on filedocumented in this encounter Care Teams Animal Caregiver Relationship Specialty Start Date End Date Mauri Jaime MD [address] [place] [address] PCP - General Internal Medicine 05/28/23 Guerrero Middleton PA [address] [place] [address] 05/28/23 documented as of this encounter
--- OUTSIDE RECORDS SUMMARY | 2024-05-03 20:34 | XMS_ITS | Referral Summary ---
Author Organization [facility] Address [address] [place] [address] Care Team Providers Care Rail Setter Name Role Phone Mauri Jaime MD Primary Care Provider [phone] Guerrero Middleton PA Unavailable [phone] Allergies Active Allergy Reactions Criticality Noted Date [...] tablet TAKE 1 TABLET BY MOUTH EVERY CLINICAL NURSE REVIEWER 022 Active fenofibrate (TRIGLIDE) 160 mg tablet [...] mg tablet Take by mouth nightly Active Social History Tobacco Use Types Packs/Day Years [...] on file Legal Sex Female 5:05 AM STOCK PARTS INSPECTOR Gender Identity Not on file Sexual Orientation Not on file Last Filed Vital Signs Vital Sign Reading Time Taken Comments Blood Pressure 101/62 06/05/2023 11:38 AM STOCK PARTS INSPECTOR Pulse 76 06/05/2023 11:38 AM STOCK PARTS INSPECTOR Temperature 36.4 ??C (97.5 ??F) 06/05/2023 10:[address] Respiratory Rate 22 06/05/2023 11:38 AM STOCK PARTS INSPECTOR Oxygen Saturation 94% 06/05/2023 11:38 AM STOCK PARTS INSPECTOR Inhaled Oxygen Concentration - - Weight 81.6 kg (180 lb) 06/05/2023 8:58 AM STOCK PARTS INSPECTOR Height 165.1 cm (5' 5 ) 06/05/2023 8:58 AM STOCK PARTS INSPECTOR Body Mass Index 29.95 06/05/2023 8:58 AM STOCK PARTS INSPECTOR Plan of Treatment Not on file Insurance [facility] [employer] [facility] [employer] [facility] Care Teams Rail Setter Relationship Specialty Start Date End Date Mauri Jaime MD [address] [place] [address] PCP - General Internal Medicine 05/28/23 Guerrero Middleton PA [address] [place] [address] 05/28/23
--- OUTSIDE RECORDS SUMMARY | 2024-05-03 20:34 | XMS_ITS | Encounter Summary ---
Author Organization [facility] Healthcare Address [address] [place] [id number] Care Team Providers Care Rn Admissions Name Role Phone Guerrero Middleton Primary Care Provider Reason for Visit * Reason Comments Abdominal Pain Encounter Details Date Type Department Care Team ([facility] Contact Info) Description 12/02/2017 7:52 PM CDT - 12/02/2017 9:54 PM CDT Emergency [facility] Emergency Department [address] [place] [id number] Discharge Disposition: Left without being seen Social History Tobacco Use Types Packs/Day Years Used Date Smoking Tobacco: Never Assessed Comments Unknown Sex and Gender Information Value Date Recorded Sex Assigned at Not on file Legal Sex Female 5:05 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[employer] Gender Identity Not on file Sexual Orientation Not on file documented as of this encounter Last Filed Vital Signs Vital Sign Reading Time Taken Comments Blood Pressure 175/106 12/02/2017 8:01 PM CDT Pulse 100 12/02/2017 8:01 PM CDT Temperature 36.1 ??C (97 ??F) 12/02/2017 8:01 PM CDT Respiratory Rate 22 12/02/2017 8:01 PM CDT Oxygen Saturation 99% 12/02/2017 8:01 PM CDT Inhaled Oxygen Concentration - - Weight 81.6 kg (180 lb) 12/02/2017 8:01 PM CDT Height 165.1 cm (5' 5 ) 12/02/2017 8:01 PM CDT Body Mass Index 29.95 12/02/2017 8:01 PM CDT documented in this encounter Medications at Time of Discharge cholecalcifero l (Delta D3) 400 unit capsule 10/12/2014Vitamin d, po solid 400 unit TabletPOdailyCurrent Medication 5 fenofibrate (TRIGLIDE) 160 mg tablet Take 1 tablet (160 mg total) by mouth daily 5 documented as of this encounter Discharge Disposition Disposition Code Departure Means Destination Left without being seen documented in this encounter ED Notes * Jacquie Kent RN - 12/02/2017 8:02 PM CDT Pt to ED c/o L upper abdominal pain. Pt has hx pancreatitis and states she is in and out of the hospital. Pt has been recently dx with familial chylomicronema, states, my lipids are usually in the thousands . Pt endorses n/v/d x3 days. Endorses chills and night sweats.Two episodes of emesis today,states that the antiemetics do not work. Pt is tearful in triage, guarding L side. Hx DM, metabolicsyndrome, PCOS, HLD. All VSS. documented in this encounter Miscellaneous Notes * ED Procedure Note - Serafin Stark MD - 12/02/2017 8:33 PM CDTAssociated Order(s): ECG 12-LEAD Procedure ECG 12 lead Date/Time: 12/02/2017 8:33 PM Performed by: SERAFIN STARK Authorized by: SERAFIN STARK Quality: Tracing quality: Limited by artifact Rate: ECG rate: 99 ECG rate assessment: normal Rhythm: Rhythm: sinus rhythm Ectopy: Ectopy: none QRS: QRS axis: Normal QRS intervals: Normal Conduction: Conduction: normal ST segments: ST segments: Normal T waves: T waves: inverted Inverted: III Previous ECG: Previous ECG: Unavailable Interpretation: Interpretation: normal Recommended Follow-up: Recommended follow up: further workup in the ED Serafin Stark MD 12/02/172033 documented in this encounter Plan of Treatment Scheduled Orders Name Type Priority Associated Diagnoses Orde r Schedule Urinalysis reflex to microscopic and culture Urine Microbiology STAT STAT for 1 Occurrences starting 12/02/2017 until 12/02/2017 documented as of this encounter Procedures Procedure Name Priority Date/Time Associated Diagnosis Comments DIFFERENTIAL AUTO STAT 12/02/2017 9:1 7 PM CDT CBC WITH AUTO DIFFERENTIAL STAT 12/02/2017 9:17 PM CDT LIPASE STAT 12/02/2017 9:17 PM CDT HEPATIC FUNCTION PANEL STAT 12/02/2017 9:17 PM CDT BASIC METABOLIC PANEL STAT 12/02/2017 9:17 PM CDT ECG 12-LEAD STAT 12/02/2017 8:33 PM CDT POCT GLUCOSE DEVICE Routine Gen Lab 12/02/2017 8 :09 PM CDT documented in this encounter Results * (ABNORMAL) Differential, auto (12/02/2017 9:17 PM CDT) Neutrophil abs 9.7(H) 1.7 - 6.5 K/cumm [facility] Imm gran abs 0.2(H) 0.0 - 0.1 K/cumm [facility] Lymphocyte abs 4.0(H) 0.8 - 3.3 K/cumm [facility] Monocyte abs 0.7 0.2 - 0.8 K/cumm [facility] Eosinophil abs 0.1 0.0 - 0.5 K/cumm [facility] Basophil abs 0.1 0.0 - 0.1 K/cumm [facility] Neutrophil pct 65.7 % [facility] Comment: Interpretive Data Percent cell count reference ranges are not reported, since discordance with absolute values may lead to misinterpretation of CBC data. Current Interpretive Data was last revised on 2017. Imm gran pct 1.3 % [facility] Comment: Interpretive Data Percent cell count reference ranges are not reported, since discordance with absolute values may lead to misinterpretation of CBC data. Current Interpretive Data was last revised on 2017. Lymphocyte pct 26.7 % [facility] Comment: Interpretive Data Percent cell count reference ranges are not reported, since discordance with absolute values may lead to misinterpretation of CBC data. Current Interpretive Data was last revised on 2017. Monocyte pct 4.9 % [facility] Comment: Interpretive Data Percent cell count reference ranges are not reported, since discordance with absolute values may lead to misinterpretation of CBC data. Current Interpretive Data was last revised on 2017. Eosinophil pct 0.9 % [facility] Comment: Interpretive Data Percent cell count reference ranges are not reported, since discordance with absolute values may lead to misinterpretation of CBC data. Current Interpretive Data was last revised on 2017. Basophil pct 0.5 % [facility] Comment: Interpretive Data Percent cell count reference ranges are not reported, since discordance with absolute values may lead to misinterpretation of CBC data. Current Interpretive Data was last revised on 2017. Blood specimen (specimen) 12/02/2017 9:17 PM CDT 12/02/2017 9:31 PM CDT Narrative [facility] - 12/02/2017 9:39 PM CDT Serafin Stark MD LAB BLOOD ORDERABLES Final R esult [facility] Department [place] [address] * Hepatic function panel (12/02/2017 9:17 PM CDT) Bilirubin, total 0.3 0.1 - 1.2 mg/dL [facility] Bilirubin, direct 0.2 0.1 - 0.3 mg/dL [facility] Protein, pl 7.9 6.5 - 8.5 g/dL [facility] Albumin 5.0 3.5 - 5.0 g/dL [facility] Alk phos 71 40 - 130 Units/L [facility] ALT 15 7 - 45 Units/L [facility] AST 19 10 - 45 Units/L [facility] Blood specimen (specimen) (Blood, Venous) 12/02/2017 9:17 PM CDT 12/02/2017 9:31 PM CDT Narrative [facility] - 12/02/2017 9:58 PM CDT THE COLLECTION LOCATION IS Serafin Stark MD LAB BLOOD ORDERABLES Final R esult [facility] Department [place] [address] * (ABNORMAL) CBC with auto differential (12/02/2017 9:17 PM CDT) WBC 14.8(H) 3.8 - 9.9 K/cumm [facility] Hgb 14.0 11.9 - 15.5 g/dL [facility] Hct 40.6 35.6 - 45.5 % [facility] Plt 355 150 - 400 K/cumm [facility] MPV 9.3 9.1 - 12.3 fL [facility] RBC 4.55 3.90 - 5.20 M/cumm [facility] MCV 89.2 81.3 - 96.4 fL [facility] MCH 30.8 27.1 - 33.3 pg [facility] MCHC 34.5 32.3 - 35.7 g/dL [facility] RDW CV 14.8 11.1 - 14.9 % [facility] RDW SD 48.1 35.7 - 48.1 fL [facility] NRBC abs 0.00 0.00 - 0.01 K/cumm [facility] Blood specimen (specimen) (Blood, Venous) 12/02/2017 9:17 PM CDT 12/02/2017 9:31 PM CDT Narrative [facility] - 12/02/2017 9:39 PM CDT THE COLLECTION LOCATION IS us Serafin Stark MD LAB BLOOD ORDERABLES Final R esult Performing Organization Address City/[facility]/ZIP Co de Phone Number [facility] Department [place] [place] [address] * (ABNORMAL) Basic metabolic panel (12/02/2017 9:17 PM CDT) Sodium 134(L) 135 - 145 mmol/L [facility] Potassium, pl 4.3 3.3 - 4.9 mmol/L [facility] Chloride 97 97 - 110 mmol/L [facility] CO2 19(L) 22 - 32 mmol/L [facility] Anion gap 18(H) 2 - 15 mmol/L [facility] BUN 13 8 - 25 mg/dL [facility] Creatinine 0.63 0.60 - 1.10 mg/dL [facility] Glucose 175 70 - 199 mg/dL [facility] Comment: Interpretive Data Fasting glucose >/= 126 mg/dl is diagnostic for diabetes. ?? Fasting is defined as no caloric intake for at least 8 hours. Fasting glucose between 100 mg/dl to 125 mg/dl is diagnostic of prediabetes. In a patient with classic symptoms of hyperglycemia or hyperglycemic crisis, a random glucose >/= 200 mg/dl is diagnostic for diabetes. In the absence of unequivocal hyperglycemia, results should be confirmed by repeat testing. The classification and Diagnosis of Diabetes Diabetes Care 2017;40 (Suppl. 1):S11. Current interpretive data was last revised 2017. Calcium 9.9 8.5 - 10.3 mg/dL [facility] Blood specimen (specimen) 12/02/2017 9:17 PM CDT 12/02/2017 9:31 PM CDT Narrative [facility] - 12/02/2017 9:58 PM CDT THE [facility] COLLECTION LOCATION IS us Serafin Stark MD LAB BLOOD ORDERABLES Final R esult Performing Organization Address [facility]/ZIP Co de Phone Number [facility] Department [place] [address] * Lipase (12/02/2017 9:17 PM CDT) Lipase 46 10 - 99 Units/L [facility] Blood specimen (specimen) (Blood, Venous) 12/02/2017 9:17 PM CDT 12/02/2017 9:31 PM CDT Narrative [facility] - 12/02/2017 9:58 PM CDT THE COLLECTION LOCATION IS us Serafin Stark MD LAB BLOOD ORDERABLES Final R esult [facility] Department [place] [address] * ECG 12-LEAD (12/02/2017 8:33 PM CDT) Narrative [facility] - 12/02/2017 8:33 PM CDT Serafin Stark MD ? 12/02/2017 ??8:34 PM ECG 12 lead Date/Time: 12/02/2017 8:33 PM Performed by: SERAFIN STARK Authorized by: SERAFIN STARK Quality: ??Tracing quality: ??Limited by artifact Rate: ??ECG rate: ??99 ??ECG rate assessment: normal ?? Rhythm: ??Rhythm: sinus rhythm ?? Ectopy: ??Ectopy: none ?? QRS: ??QRS axis: ??Normal ??QRS intervals: ??Normal Conduction: ??Conduction: normal ?? ST segments: ??ST segments: ??Normal T waves: ??T waves: inverted ?Inverted: ??III Previous ECG: ??Previous ECG: ??Unavailable Interpretation: ??Interpretation: normal ?? Recommended Follow-up: ??Recommended follow up: further workup in the ED ?? Procedure Note Serafin Stark MD - 12/02/2017 8:33 PM CDT Procedure ECG 12 lead Date/Time: 12/02/2017 8:33 PM Performed by: SERAFIN STARK Authorized by: SERAFIN STARK Quality: Tracing quality: Limited by artifact Rate: ECG rate: 99 ECG rate assessment: normal Rhythm: Rhythm: sinus rhythm Ectopy: Ectopy: none QRS: QRS axis: Normal QRS intervals: Normal Conduction: Conduction: normal ST segments: ST segments: Normal T waves: T waves: inverted Inverted: III Previous ECG: Previous ECG: Unavailable Interpretation: Interpretation: normal Recommended Follow-up: Recommended follow up: further workup in the ED Serafin Stark MD 12/02/172033 us Serafin Stark MD ECG ORDERABLES Final Result [facility] * POCT glucose (12/02/2017 8:09 PM CDT) [facility] Glucose, POC 189 70 - 199 mg/dL [facility] Blood specimen (specimen) 12/02/2017 8:09 PM CDT 12/02/2017 8:09 PM CDT Narrative [facility] - 12/02/2017 8:23 PM CDT us Notinfile Unknown LAB POCT ORDERABLES - DEVICE F inal Result Performing Organization Address City/[facility] Co de Phone Number [facility] [place] [address] documented in this encounter Visit Diagnoses Not on filedocumented in this encounter Administered Medications Inactive Administered Medications - up to 3 most recent administrations Medication Order MAR Action Action Date Dose Rate Site al & mag hydroxide simethicone-lidocaine oral suspension mixture 40 mL, oral, Once, On Sat12/02/17 at 2035, For 1 dose Given 12/02/2017 8:53 PM CDT 40 mL ondansetron ODT (ZOFRAN-ODT) disintegrating tablet 4 mg 4 mg, oral, Once, On Sat12/02/17 at 2035, For 1 dose, Indications: Nausea, VomitingIndications:Nausea,Vomiting Given 12/02/2017 8:52 PM CDT 4 mg documented in this encounter Active and Recently Administered Medications Times are shown in CDT. Scheduled Medication Order 11/30/2017 12/01/2017 12/02/2017 al & mag hydroxide simethicone-lidocaine oral suspension mixture (COMPLETED) 40 mL, oral, Once, On Sat12/02/17 at 2035, For 1 dose 2052 (Given - Provid er: Carole Flores RN) ondansetron ODT (ZOFRAN-ODT) disintegrating tablet 4 mg (COMPLETED) 4 mg, oral, Once, On Sat12/02/17 at 2035, For 1 dose, Indications: Nausea, Vomiting 2051 (Given - Provid er: Carole Flores RN) documented in this encounter Orders Medications Ordered That Jace ht Not Have Been Administered Count Last Ordered Date First Ordered Date oxyCODONE-acetaminophen (PER COCET) 5-325 mg per tablet 1 tablet 1 12/02/2017 documented in this encounter Care Teams Rn Admissions Relationship Specialty Start Date End Date Guerrero Middleton PA [address] [place] [address] PCP - General 12/02/17 05/27/23 documented as of this encounter
--- OUTSIDE RECORDS SUMMARY | 2024-05-03 20:34 | XMS_ITS | Encounter Summary ---
Author Organization [facility] Healthcare Address [address] [place] [address] Care Team Providers Care Continuous Pillowcase Cutter Name Role Phone Mauri Jaime MD Primary Care Provider [phone] Guerrero Middleton Unavailable [phone] Reason for Visit * Auth/Cert (Routine) Specialty Diagnoses / Procedures Referred By Contac t Referred To Contact Diagnoses Chronic pancreatitis, unspecified pancreatitis type (HCC) chronic pancreatitis Procedures NE EDG US EXAM SURGICAL ALTER STOM DUODENUM/JEJUNUM EUS TE/OA interventional Referral ID Status Reason Start Date Expiration Date Visits Re quested Visits Authorized [id number] 1 1 Encounter Details Date Type Department Care Team (Late st Contact Info) Description 06/05/2023 10:06 AM SENIOR WATER RESOURCES ENGINEER Anesthesia Event [facility] [place] [address] [facility] [address] [place] [address] Sri Mayers MD [address] [place] [address] Herrera Ponce CRNA [address] [place] [address] Anesthesia Record Procedure Summary Procedure Name Responsible Anesthesiologist Anesthesia Start Time Anesthesia Stop Time ESOPHAGOGASTRODUODENOSCOPY ENDOSCOPIC ULTRASOUND (Left) Sri Mayers MD 06/05/23 1006 06/05/23 1042 Events Date Time Event Comment 06/05/2023 0910 1006 An Start 1013 In Room 1014 An Start Data 1014 Start Supplemental O2 1015 An Induction The patient was reevaluated immediately before moderate or deep sedation use and before anesthesia induction. 1020 Anesthesia Ready 1021 Proc Start 1033 Proc Fin 1036 an stop data 1037 Out of Room 1042 Handoff to RN I completed my handoff to the receiving nurse during which we: 1. Patient identified 2. Responsible provider identified 3. Pertinent medical history reviewed 4. Procedure type and surgical course discussed 5. Intraoperative anesthetic management and any significant issues discussed 6. Expectations and concerns for postop period discussed 7. Questions solicited from receiving nurse 8. Patient disposition at the time of handoff: No value filed. 1042 An Stop Meds Name Total lidocaine (cardiac) syringe 2 % 100 mg propofol 65 mg propofol 162.38 mg NS 0.9% 400 mL * Agents Name O2% N2O O2 N2O Air * Blood No blood administrations on file. 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 Gender Identity Not on file Sexual Orientation Not on file documented as of this encounter OR Notes * Anesthesia Postprocedure Evaluation - Fadia Leonard MD - 06/05/2023 10:44 AM CST Patient: Casandra Jones Procedure Summary Date: 06/05/23 Room / Location: [facility]COPY ROOM 2 / [facility] Anesthesia Start: 1006 Anesthesia Stop: 1042 Procedure: ESOPHAGOGASTRODUODENOSCOPY ENDOSCOPIC ULTRASOUND (Left) Diagnosis: Chronic pancreatitis, unspecified pancreatitis type (HCC) (chronic pancreatitis) Providers: Mikel Galvez MD Responsible Provider: Sri Mayers MD Anesthesia Type: MAC ASA Status: 2 Anesthesia Type: MAC Last vitals BP 96/49 Pulse 73 Temp 36.4 ??C (97.5 ??F) Resp 12 SpO2 98% Anesthesia Post Evaluation Patient location during evaluation: PACU Patient participation: complete - patient participated Level of 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 OR WATER RESOURCES ENGINEER * Anesthesia Preprocedure Evaluation - Sri Mayers MD - 06/05/2023 9:27 AM CST Images from the original note were not included. Anesthesia Evaluation Casandra Jones is a 47 y.o. female Procedure(s): EUS TE/OA interventional Pre-Op Diagnosis Codes: * Chronic pancreatitis, unspecified pancreatitis type (HCC) [K86.1] There are no problems to display for this patient. Past Medical History: Diagnosis Date Chylomicronemia syndrome Diabetes mellitus (HCC) History of transfusion Necrotizing pancreatitis Type 2 diabetes mellitus (HCC) Past Surgical History: Procedure Laterality Date APPENDECTOMY COLONOSCOPY EXPLORATORY LAPAROTOMY HYSTERECTOMY TONSILLECTOMY TUBAL LIGATION UPPER GASTROINTESTINAL ENDOSCOPY OB History No obstetric history on file. Allergies Allergen Reactions Adhesive Tape-Silicones Hives Stephens Pepper Hives Aspartame Headache Taking? Last Dose Start Date End Date Provider blood-glucose sensor (Dexcom G6 Sensor) device 06/05/2023 05/16/20 -- ProviderAndrew MD cholecalciferol (Delta D3) 400 unit capsule 06/04/2023 10/12/14 -- Andrew Escobar MD citalopram (CeleXA) 40 mg tablet 06/04/2023 11/01/20 -- Andrew Escobar MD doxepin 6 mg tablet Past Week 05/31/23 -- Andrew Escobar MD empagliflozin (JARDIANCE) 25 mg tablet 06/04/2023 06/01/21 -- ProviderAndrew MD fenofibrate (TRIGLIDE) 160 mg tablet 06/04/2023 10/12/14 -- ProviderAndrew MD HYDROcodone-acetaminophen (NORCO) 10-325 mg per tablet Past Week 05/10/23 -- ProviderAndrew MD insulin aspart (NovoLOG) 100 unit/mL (3 mL) pen for injection 06/04/2023 06/01/21 -- Andrew Escobar MD levothyroxine (SYNTHROID) 200 mcg tablet 06/04/2023 09/15/20 -- ProviderAndrew MD LORazepam (ATIVAN) 0.5 mg tablet Past Month -- -- ProviderAndrew MD metFORMIN (GLUCOPHAGE) 1,000 mg tablet 06/04/2023 05/01/21 -- Andrew Escobar MD ondansetron ODT (ZOFRAN-ODT) 4 mg disintegrating tablet Past Month 05/21/18 -- Provider, MD Andrew pantoprazole DR (PROTONIX) 40 mg EC tablet 06/04/2023 -- -- Andrew Escobar MD rosuvastatin (CRESTOR) 20 mg tablet 06/04/2023 -- -- ProviderAndrew MD traZODone (DESYREL) 100 mg tablet 06/04/2023 -- -- Andrew Escobar MD TRESIBA 200 unit/mL (3 mL) pen for injection 06/04/2023 -- -- Andrew Escobar MD No current facility-administered medications for this encounter. Social History Tobacco Use Smoking Status Every Day Packs/day: 1 Types: Cigarettes Smokeless Tobacco Not on file Alcohol Use: Not At Risk (06/05/2023) AUDIT-C Frequency of Alcohol Consumption: Monthly or less Average Number of Drinks: 1 or 2 Frequency of Binge Drinking: Never Substance and Sexual Activity Drug Use Never Family History Problem Relation Age of Onset Colon cancer Maternal Grandfather Vitals: 06/05/23 0858 BP: 107/68 Pulse: 88 Resp: 14 Temp: 36.5 ??C (97.7 ??F) SpO2: 96% PT: No results found for requested labs within last 30 days. INR: No results found for requested labs within last 30 days. APTT: No results found for requested labs within last 30 days. Hgb A1C: No results found for requested labs within last 30 days. CBC RBC: No results found for requested labs within last 30 days. RDW: No results found for requested labs within last 30 days. MCHC: No results found for requested labs within last 30 days. MCH: No results found for requested labs within last 30 days. MCV: No results found for requested labs within last 30 days. Hct: No results found for requested labs within last 30 days. Hgb: No results found for requested labs within last 30 days. WBC: No results found for requested labs within last 30 days. MPV: No results found for requested labs within last 30 days. Platelets: No results found for requested labs within last 30 days. RDW CV: No results found for requested labs within last 30 days. RDW Sd: No results found for requested labs within last 30 days. BMP Glucose: 06/05/2023: 124 mg/dL Calcium: No results found for requested labs within last 30 days. Sodium: No results found for requested labs within last 30 days. Potassium: No results found for requested labs within last 30 days. CO2: No results found for requested labs within last 30 days. Chloride: No results found for requested labs within last 30 days. BUN: No results found for requested labs within last 30 days. Creatinine: No results found for requested labs within last 30 days. DOS Physical Exam Medical history, medications, and allergies reviewed. Attestation: With today's edits, I endorse the findings of the procedural assessment dated: 06/05/2023. Airway Exam: Mallampati: II Cervical ROM: FROM TM distance: >4 Cardiovascular Exam: Rate: regular Rhythm: regular Negative for Murmur Pulmonary Exam: LCTA, bilat EENT Exam: trachea midline Dental Exam: Appears intact Current state: Patient's current state is cooperative. Anesthesia Plan ASA 2 My patient is approved for the Anesthesia Controlled Medication protocol when under care of a BORING MACHINE FEEDER Planned anesthesia: MAC Informed Consent: Discussed plan with BORING MACHINE FEEDER. Anesthesia plan and risks discussed with patient. Consent and Attending signature: I and/or my designee have discussed the anesthesia plan, benefits, possible alternatives, parental presence at time of induction (if indicated), and clinically relevant risks that may include dental injury, unintentional awareness, and/or other complications. The patient and/or parent/legal guardian understand, and agree to proceed. All questions answered. OR WATER RESOURCES ENGINEER documented in this encounter Plan of Treatment Not on file documented as of this encounter Visit Diagnoses Not on filedocumented in this encounter Administered Medications Inactive Administered Medications - up to 3 most recent administrations Medication Order MAR Action Action Date Dose Rate Site lidocaine (cardiac) (XYLOCAINE) preservative free injection intravenous, As needed, Starting on Sat06/05/23 at 1014, Anesthesia Intra-op, Indications: Ventricular ArrhythmiasIndications:Ventricular Arrhythmias Given 06/05/2023 10:20 AM SENIOR WATER RESOURCES ENGINEER 40 mg Given 06/05/2023 10:14 AM SENIOR WATER RESOURCES ENGINEER 60 mg propofoL (DIPRIVAN) 10 mg/mL IV intravenous, As needed, Starting on Sat06/05/23 at 1018, Anesthesia Intra-op Bolus 06/05/2023 10:28 AM SENIOR WATER RESOURCES ENGINEER 15 mg New Bag 06/05/2023 10:18 AM SENIOR WATER RESOURCES ENGINEER 50 mg propofoL (DIPRIVAN) 10 mg/mL IV intravenous, Continuous PRN, Starting on Sat06/05/23 at 1018, Anesthesia Intra-op Rate/Dose Change 06/05/2023 10:30 AM SENIOR WATER RESOURCES ENGINEER 150 mcg/kg/min 73.44 mL/hr Rate/Dose Change 06/05/2023 10:28 AM SENIOR WATER RESOURCES ENGINEER 140 mcg/kg/min 68 .544 mL/hr Rate/Dose Change 06/05/2023 10:22 AM SENIOR WATER RESOURCES ENGINEER 130 mcg/kg/min 63 .648 mL/hr sodium chloride 0.9% infusion intravenous, Continuous PRN, Starting on Sat06/05/23 at 1016, Anesthesia Intra-op New Bag 06/05/2023 10:16 AM SENIOR WATER RESOURCES ENGINEER documented in this encounter Care Teams Continuous Pillowcase Cutter Relationship Specialty Start Date End Date Mauri Jaime MD [address] [facility] [address] [place] [address] PCP - General Internal Medicine 05/28/23 Guerrero Middleton PA [address] [facility] [address] [place] [address] 05/28/23 documented as of this encounter
--- OUTSIDE RECORDS SUMMARY | 2024-05-03 20:34 | XMS_ITS | Encounter Summary ---
Author Organization [facility] Address [address] [place] [address] Phone Care Team Providers Care Tester Food Products Name Role Phone Mauri Jaime MD Primary Care Provider [phone] Guerrero Middleton Unavailable [phone] Encounter Details Date Type Department Care Team (Late st Contact Info) Description 07/23/[address] [facility] Gastroenterology [address] [facility] [address] [place] [address] [place] [address] Matt Rees Social History Tobacco [...] on file Legal Sex Female 5:05 AM MANAGED CARE MANAGER Gender Identity Not on file Sexual Orientation Not on file documented as of this encounter Miscellaneous Notes * Telephone Encounter - Matt Rees - 07/23/2023 9:18 AM CDT Lvm x3 to coordinate MRI with ov with Dr. Galvez * Telephone Encounter - Matt Rees - 07/23/2023 9:17 AM CDT ----- Message from Manisha Resendiz RN sent at 06/05/2023 2:09 PM MANAGED CARE MANAGER ----- Regarding: ROV + MRCP Hi Matt, Can you please coordinate the following from Dr. Galvez's recommendations: Return to my office in 3 months. MRCP prior to clinic visit. Thank you, CLAU Dyer BSN Clinical Nurse Coordinator, [facility] in [place], documented in this encounter Plan of Treatment Not on file documented as of this encounter Visit Diagnoses Not on filedocumented in this encounter Care Teams Tester Food Products Relationship Specialty Start Date End Date Mauri Jaime MD [address] [place] [address] PCP - General Internal Medicine 05/28/23 Guerrero Middleton PA [address] [place] [address] 05/28/23 documented as of this encounter
--- OUTSIDE RECORDS SUMMARY | 2024-05-03 20:34 | XMS_ITS | Encounter Summary ---
Author Organization [facility] Facility Care Team Providers Care Manager Machine Name Role Phone Unavailable Primary Care Provider Unavailabl e Encounter Details Date Type Department Care Team (Late st Contact Info) Description 12/25/2006 - 12/25/2006 11:59 PM CDT Hospital Encounter [facility] Jose Austin MD [id number] [place] [address] Social History Tobacco Use Types Packs/Day Years Used Date Smoking Tobacco: Never Assessed Comments Unknown Sex and Gender Information Value Date Recorded Sex Assigned at Not on file Legal Sex Female 5:05 AM DEAF INTERPRETER Gender Identity Not on file Sexual Orientation Not on file documented as of this encounter Plan of Treatment Not on file documented as of this encounter Visit Diagnoses Not on filedocumented in this encounter
--- OUTSIDE RECORDS SUMMARY | 2024-05-03 20:34 | XMS_ITS | Encounter Summary ---
Author Organization [facility] Healthcare Address [address] [place] [address] Care Team Providers Care Pottery Machine Operator Name Role Phone Mauri Jaime MD Primary Care Provider [phone] Guerrero Middleton Unavailable [phone] Reason for Visit * Auth/Cert (Routine) Specialty Diagnoses / Procedures Referred By Contac t Referred To Contact Diagnoses Chronic pancreatitis, unspecified pancreatitis type (HCC) chronic pancreatitis Procedures [facility] EDG US EXAM SURGICAL ALTER STOM DUODENUM/JEJUNUM EUS TE/OA interventional Referral ID Status Reason Start Date Expiration Date Visits Re quested Visits Authorized [id number] 1 1 Encounter Details Date Type Department Care Team (Latest Contact Info) Description 06/05/2023 10:00 AM TUBE BUILDER AIRPLANE - 06/05/2023 11:00 AM TUBE BUILDER AIRPLANE Surgery [facility] [address] [place] [address] Mikel Galvez MD [address] [place] [address] ESOPHAGOGASTRODUODENOSCOPY ENDOSCOPIC ULTRASOUND Surgery Details Date/Time Status Location OR Service Patient Class Case Class Case Type Trauma Case? 06/05/2023 10:00 AM Posted [facility] ENDOSCOPY ERCP 02 Gastroenterology Outpatient Elective Panel 1 Procedure LRB Anes Op Region Wound Class Comments ESOPHAGOGASTRODUODENOSCOPY ENDOSCOPIC ULTRASOUND Left Monitor Anesthesia Care N/A Surgeon Surgeon Role Service Panel Ronnell Ramirez, MD Fellow Gastroe nterology 1 Mikel Galvez MD Primary Gastroenterology 1 Special Needs To be with DR Galvez documented in this encounter Social History Tobacco [...] on file Legal Sex Female 5:05 AM TUBE BUILDER AIRPLANE Gender Identity Not on file Sexual Orientation Not on file documented as of this encounter Last Filed Vital Signs Vital Sign Reading Time Taken Comments Blood Pressure 106/65 06/05/2023 10:58 AM TUBE BUILDER AIRPLANE Pulse 73 06/05/2023 10:58 AM TUBE BUILDER AIRPLANE Temperature 36.4 ??C (97.5 ??F) 06/05/2023 10:[address] Respiratory Rate 15 06/05/2023 10:58 AM TUBE BUILDER AIRPLANE Oxygen Saturation 96% 06/05/2023 10:58 AM TUBE BUILDER AIRPLANE Inhaled Oxygen Concentration - - Weight 81.6 kg (180 lb) 06/05/2023 8:58 AM TUBE BUILDER AIRPLANE Height 165.1 cm (5' 5 ) 06/05/2023 8:58 AM TUBE BUILDER AIRPLANE Body Mass Index 29.95 06/05/2023 8:58 AM TUBE BUILDER AIRPLANE documented in this encounter Medications at Time [...] tablet TAKE 1 TABLET BY MOUTH EVERY TRAIN GATE ATTENDANT 06/01/19 22 fenofibrate (TRIGLIDE) 160 mg tablet [...] Discharge Disposition Disposition Code Departure Means Destination Comment s Discharge to home or self care documented in this encounter H&P Notes * Ronnell Ramirez MD - 06/05/2023 10:08 AM CST Pre Endoscopy History and Physical Casandra Jones is a 47 y.o. female who is here for Procedure(s): EUS TE/OA interventional The indication(s) for the procedure(s): chronic pancreatitis. Past Medical History: Diagnosis Date Chylomicronemia syndrome Diabetes mellitus (HCC) History of transfusion Necrotizing pancreatitis Type 2 diabetes mellitus (HCC) Past Surgical History: Procedure Laterality Date APPENDECTOMY COLONOSCOPY EXPLORATORY LAPAROTOMY HYSTERECTOMY TONSILLECTOMY TUBAL LIGATION UPPER GASTROINTESTINAL ENDOSCOPY Social History Tobacco Use Smoking status: Every Day Packs/day: 1 Types: Cigarettes Smokeless tobacco: None Substance and Sexual Activity Drug use: Never Sexual activity: None Alcohol Use: Not At Risk (06/05/2023) AUDIT-C Frequency of Alcohol Consumption: Monthly or less Average Number of Drinks: 1 or 2 Frequency of Binge Drinking: Never Family History Problem Relation Age of Onset Colon cancer Maternal Grandfather Allergies Allergen Reactions Adhesive Tape-Silicones Hives Stephens Pepper Hives Aspartame Headache Prior to Admission medications Medication Sig Start Date End Date Taking? Authorizing Provider blood-glucose sensor (Dexcom G6 Sensor) device Change sensor every 10 days. (9 sensors = 90 days) 05/16/20 Yes Andrew Escobar MD cholecalciferol (Delta D3) 400 unit capsule 10/12/2014Vitamin d, po solid 400 unit TabletPOdailyCurrent Medication 10/12/14 Yes Andrew Escobar MD citalopram (CeleXA) 40 mg tablet Take 1 tablet (40 mg total) by mouth daily 11/01/20 Yes Andrew Escobar MD doxepin 6 mg tablet Take 1 tablet by mouth nightly at bedtime 05/31/23 Yes Andrew Escobar MD empagliflozin (JARDIANCE) 25 mg tablet TAKE 1 TABLET BY MOUTH EVERY TRAIN GATE ATTENDANT 06/01/21 Yes Andrew Escobar MD fenofibrate (TRIGLIDE) 160 mg tablet Take 1 tablet (160 mg total) by mouth daily 10/12/14 Yes Andrew Escobar MD HYDROcodone-acetaminophen (NORCO) 10-325 mg per tablet Take 1 tablet by mouth every 6 (six) hours as needed 05/10/23 Yes Andrew Escobar MD insulin aspart (NovoLOG) 100 unit/mL (3 mL) pen for injection INJECT APPROXIMATELY 50 UNITS A DAY PER CORRECTION DOSE WITH MEALS 06/01/21 Yes Andrew Escobar MD levothyroxine (SYNTHROID) 200 mcg tablet Take 1 tablet (200 mcg total) by mouth daily 09/15/20 Yes Andrew Escobar MD LORazepam (ATIVAN) 0.5 mg tablet TAKE 1 TABLET BY MOUTH ONCE DAILY NEEDED FOR ANXIETY Yes Andrew Escobar MD metFORMIN (GLUCOPHAGE) 1,000 mg tablet Take 1 tablet (1,000 mg total) by mouth 05/01/21 Yes Andrew Escobar MD ondansetron ODT (ZOFRAN-ODT) 4 mg disintegrating tablet Take 1 tablet (4 mg total) by mouth every 6(six) hours as needed 05/21/18 Yes Andrew Escobar MD pantoprazole DR (PROTONIX) 40 mg EC tablet Take 1 tablet (40 mg total) by mouth 2 (two) times a dayYes Andrew Escobar MD rosuvastatin (CRESTOR) 20 mg tablet Take 1 tablet (20 mg total) by mouth daily Yes Andrew Escobar MD traZODone (DESYREL) 100 mg tablet Take by mouth nightly Yes Andrew Escobar MD TRESIBA 200 unit/mL (3 mL) pen for injection INJECT 36 UNITS SUBCUTANEOUSLY IN THE MORNING Yes ProviderAndrew MD Review of Systems A pertinent, focused review of systems was completed and negative, except as noted above. OBJECTIVE: Vitals: Vitals: 06/05/23 0858 BP: 107/68 Pulse: 88 Resp: 14 Temp: 36.5 ??C (97.7 ??F) TempSrc: Temporal SpO2: 96% Weight: 81.6 kg (180 lb) Height: 165.1 cm (5' 5 ) Physical Exam: Airway: No significant abnormality. Cardiac: No significant abnormality. Pulmonary: No significant abnormality. Neurological: No significant abnormality. Gastrointestinal: No significant abnormality. ASA Score: per Anesthesia Sedation/Anesthesia Plan: per Anesthesia The risks and complications of the procedure have been explained to the patient. Informed consent was signed. Impression and plan: Will proceed with the planned procedure for the reasons stated above. BUILDER AIRPLANE documented in this encounter Procedure Notes * Mikel Galvez MD - 06/05/2023 9:51 AM CSTAssociated Order(s): EUS GI ENDOSCOPY [facility] Patient Name: Casandra Jones Procedure Date: 06/05/2023 9:51 AM Date of : 1975 Admit Type: Outpatient Age: 47 Gender: Female Attending MD: Mikel Galvez M.D. Room: [facility] ENDOSCOPY ROOM 2 Note Status: Finalized Procedure: Upper EUS Indications: Chronic recurrent pancreatitis. 47F with reccurrent acute pancreatitis in setting of familial hypertriglyceridemia (currently on scheduled plasmapheresis), hyperthyroidism, IDDM. CT OSH 05/28/2023 with pancreas enhacing normally without pancreatic ductal dilation or suspicious lesion. Referring MD: Gretchen Blue NP Providers: Mikel Galvez M.D., Ronnell Ramirez M.D. Medicines: Monitored Anesthesia Care Complications: No immediate complications. Estimated Blood Loss: Estimated blood loss: none. Procedure: Pre-Anesthesia Assessment: - Prior to the procedure, a History and Physical was performed, and patient medications, allergies and sensitivities were reviewed. The patient's tolerance of previous anesthesia was reviewed. - The risks and benefits of the procedure and the sedation options and risks were discussed with the patient. All questions were answered and informed consent was obtained. - Immediately prior to administration of medications, the patient was re-assessed for adequacy to receive sedatives. The risks, benefits and alternatives were discussed and informed consent was obtained.The Olympus curved linear array therapeutic endosonoscope [id number] was introduced through the mouth, and advanced to the second part of duodenum The upper EUS was accomplished without difficulty. The patient tolerated the procedure well. Findings: ENDOSONOGRAPHIC FINDING: : Endosonographic imaging of the pancreas showed sonographic changes indicative of mild-moderate chronic pancreatitis in the entire pancreas. The parenchyma had diffuse echogenicity and lobularity. The pancreatic duct had a normal endosonographic appearance. The pancreatic duct measured up to 2 mm in diameter. No ductal dilation, stricture, or pancreatic stones. There was no sign of significant endosonographic abnormality in the common bile duct. The maximum diameter of the duct was 3 mm. No stones, no biliary sludge, ducts of normal caliber and ducts with regular contour were identified. There was no sign of significant endosonographic abnormality in the ampulla. There was no sign of significant endosonographic abnormality in the left lobe of the liver. No focal pathology was identified. Impression: - Endosonographic imaging of the pancreas showed sonographic changes suggestive of mild-moderate chronic pancreatitis. No ductal dilation, stricture, or pancreatic stones. - There was no sign of significant pathology in the common bile duct. - There was no sign of significant pathology in the ampulla. - There was no evidence of significant pathology in the left lobe of the liver. Recommendation: - Discharge patient to home (with escort). - Return to my office in 3 months. - Obtain MRCP prior to clinic visit. - Obtain triglyceride level prior to clinic visit - In the unusual situation that you develop abdominal pain, bleeding or other significant problems in the days following this procedure please call my office [phone]). After hours and evenings please call [phone] and speak to the GI fellow test automation architect. Please tell the fellow that Dr. Galvez did your procedure and that you were instructed to have the fellow call me or the physician covering for me to discuss the management of your condition. If you have an urgent problem, please go to the nearest emergency room and have the ER doctor call my office during the day or the GI fellow after hours and weekends to arrange admission or transfer to our facility. Please bring this report with you if you go to the emergency room. Attending Participation: I was present and participated during the entire procedure, including non-santos portions. Electronically signed by Mikel Galvez M.D. Mikel Galvez M.D. 06/05/2023 11:33:43 AM . Number of Addenda: 0 Note Initiated On: 06/05/2023 9:51 AM Recognized by the [place] [employer] for promoting quality in endoscopy BUILDER AIRPLANE documented in this encounter Plan of Treatment Pending Results Name Type Priority Associated Diagnoses Date/Time ESOPHAGOGASTRODUODENOSCOPY ENDOSCOPIC ULTRASOUND Endo Imaging Procedure IP Routine Chronic pancreatitis, unspecified pancreatitis type (HCC) 06/05/2023 10:37 AM TUBE BUILDER AIRPLANE documented as of this encounter Procedures Procedure Name Priority Date/Time Associated Diagnosis Comments US ENDOSCOPIC IP Routine 06/05/2023 10:37 AM TUBE BUILDER [employer]PLANE Chronic pancreatitis, unspecified pancreatitis type (HCC) EUS 06/05/2023 9:51 AM TUBE BUILDER AIRPLANE POCT GLUCOSE DEVICE Routine 06/05/2023 9 :14 AM TUBE BUILDER [employer]PLANE documented in this encounter Results * EUS (06/05/2023 9:51 AM TUBE BUILDER AIRPLANE) Anatomical Region Laterality Modality Other Narrative Procedure Note Mikel Galvez MD - 06/05/2023 9:51 AM CST GI ENDOSCOPY [facility] Patient Name: Casandra Jones Procedure Date: 06/05/2023 9:51 AM Date of : 1975 Admit Type: Outpatient Age: 47 Gender: Female Attending MD: Mikel Galvez M.D. Room: [facility] ENDOSCOPY ROOM 2 Note Status: Finalized Procedure: Upper EUS Indications: Chronic recurrent pancreatitis. 47F with reccurrent acute pancreatitis in setting of familial hypertriglyceridemia (currently on scheduled plasmapheresis), hyperthyroidism, IDDM. CT OSH 05/28/2023 with pancreas enhacing normally without pancreatic ductal dilation or suspicious lesion. Referring MD: Grtechen Blue NP Providers: Mikel Galvez M.D., Ronnell Ramirez M.D. Medicines: Monitored Anesthesia Care Complications: No immediate complications. Estimated Blood Loss: Estimated blood loss: none. Procedure: Pre-Anesthesia Assessment: - Prior to the procedure, a History and Physicalwas performed, and patient medications, allergies and sensitivities were reviewed. The patient'stolerance of previous anesthesia was reviewed. - The risks and benefits of the procedure and the sedation options and risks were discussed with the patient. All questions were answered and informed consent was obtained. - Immediately prior to administration ofmedications, the patient was re-assessed for adequacy to receive sedatives. The risks, benefits and alternatives were discussed and informed consent was obtained.The Olympuscurved linear array therapeutic [id number] was introduced through the mouth, and advanced tothe second part of duodenum The upper EUS wasaccomplished without difficulty. The patient tolerated the procedure well. Findings: ENDOSONOGRAPHIC FINDING: : Endosonographic imaging of the pancreas showed sonographic changes indicative of mild-moderate chronic pancreatitis in the entirepancreas. The parenchyma had diffuse echogenicity and lobularity. Thepancreatic duct had a normal endosonographic appearance. The pancreatic duct measured up to 2 mm in diameter. No ductal dilation, stricture, or pancreatic stones. There was no sign of significant endosonographic abnormality in the common bile duct. The maximum diameter of the duct was 3 mm. Nostones, no biliary sludge, ducts of normal caliber and ducts with regular contour were identified. There was no sign of significant endosonographic abnormality in the ampulla. There was no sign of significant endosonographic abnormality in theleft lobe of the liver. No focal pathology was identified. Impression: - Endosonographic imaging of the pancreas showed sonographic changes suggestive of mild-moderate chronic pancreatitis. No ductal dilation,stricture, or pancreatic stones. - There was no sign of significant pathology in the common bile duct. - There was no sign of significant pathology in the ampulla. - There was no evidence of significant pathology in the left lobe of the liver. Recommendation: - Discharge patient to home (with escort). - Return to my office in 3 months. - Obtain MRCP prior to clinic visit. - Obtain triglyceride level prior to clinic visit - In the unusual situation that you developabdominal pain, bleeding or other significant problems in the days following this procedure please call my office [phone]). After hours and eveningsplease call [phone] and speak to the GI fellow ollie. Please tell the fellow that Dr. Galvez did your procedure and that you were instructed to have the fellow call me or the physician covering for me to discuss the management of your condition. If youhave an urgent problem, please go to the nearestemergency room and have the ER doctor call my office duringthe day or the GI fellow after hours and weekends to arrange admission or transfer to our facility.Please bring this report with you if you go to theemergency room. Attending Participation: I was present and participated during the entire procedure, including non-santos portions. Electronically signed by Mikel Galvez M.D. Mikel Galvez M.D. 06/05/2023 11:33:43 AM . Number of Addenda: 0 Note Initiated On: 06/05/2023 9:51 AM Recognized by the [employer] for promoting quality in endoscopy us Mikel Galvez MD ENDOSCOPY PROCEDURES Final Result * POCT glucose (06/05/2023 9:14 AM TUBE BUILDER AIRPLANE) Glucose, POC 124 70 - 199 mg/dL [facility] Blood 06/05/2023 9:14 AM TUBE BUILDER AIRPLANE 06/05/2023 9:14 AM TUBE BUILDER AIRPLANE us Mikel Galvez MD LAB POCT ORDERABLES - ALBARO CE Final Result [facility] Department [place] [address] documented in this encounter Visit Diagnoses Diagnosis Chronic pancreatitis, unspecified pancreatitis type (HCC) Chronic pancreatitis, unspecified pancreatitis type (HCC) documented in this encounter Historical Medications * This list may reflect changes made after this encounter. traZODone (DESYREL) 100 mg tablet Take by mouth nightly rosuvastatin (CRESTOR) 20 mg tablet Take 1 tablet (20 mg total) by mouth daily pantoprazole DR (PROTONIX) 40 mg EC tablet Take 1 tablet (40 mg total) by mouth 2 (two) times a day ondansetron ODT (ZOFRAN-ODT) 4 mg disintegrating tablet Take 1 tablet (4 mg total) by mouth every 6 (six) hours as needed 05/21/19 19 metFORMIN (GLUCOPHAGE) 1,000 mg tablet Take 1 tablet (1,000 mg total) by mouth 05/01/19 22 LORazepam (ATIVAN) 0.5 mg tablet TAKE 1 TABLET BY MOUTH ONCE DAILY NEEDED FOR ANXIETY levothyroxine (SYNTHROID) 200 mcg tablet Take 1 tablet (200 mcg total) by mouth daily 09/16/19 21 TRESIBA 200 unit/mL (3 mL) pen for injection INJECT 36 UNITS SUBCUTANEOUSLY IN THE MORNING insulin aspart (NovoLOG) 100 unit/mL (3 mL) pen for injection INJECT APPROXIMATELY 50 UNITS A DAY PER CORRECTION DOSE WITH MEALS 06/01/19 22 HYDROcodone-acetam inophen (NORCO) 10-325 mg per tablet Take 1 tablet by mouth every 6 (six) hours as needed 05/10/19 24 fenofibrate (TRIGLIDE) 160 mg tablet Take 1 tablet (160 mg total) by mouth daily 10/13/19 15 empagliflozin (JARDIANCE) 25 mg tablet TAKE 1 TABLET BY MOUTH EVERY TRAIN GATE ATTENDANT 06/01/19 22 doxepin 6 mg tablet Take 1 tablet by mouth nightly at bedtime 05/31/19 24 citalopram (CeleXA) 40 mg tablet Take 1 tablet (40 mg total) by mouth daily 11/02/19 21 cholecalciferol (Delta D3) 400 unit capsule 10/12/2014Vitamin d, po solid 400 unit TabletPOdailyCurrent Medication 10/13/19 15 blood-glucose sensor (Dexcom G6 Sensor) device Change sensor every 10 days. (9 sensors = 90 days) 05/16/19 21 added in this encounter Orders Discharge Count Last Ordered Date First Orde red Date DISCHARGE PATIENT 1 06/05/2023 documented in this encounter Care Teams Pottery Machine Operator Relationship Specialty Start Date End Date Mauri Jaime MD [address] [place] [address] PCP - General Internal Medicine 05/28/23 Guerrero Middleton PA [address] [place] [address] 05/28/23 documented as of this encounter
--- OUTSIDE RECORDS SUMMARY | 2024-05-03 20:34 | XMS_ITS | Encounter Summary ---
Author Organization [facility] Facility Care Team Providers Care Foreign Student Adviser Name Role Phone Unavailable Primary Care Provider Unavailabl e Encounter Details Date Type Department Care Team (Late st Contact Info) Description 12/26/2006 - 12/26/2006 11:59 PM CDT Hospital Encounter [facility] Jose Austin MD [id number] [place] [address] Social History Tobacco Use Types Packs/Day Years Used Date Smoking Tobacco: Never Assessed Comments Unknown Sex and Gender Information Value Date Recorded Sex Assigned at Not on file Legal Sex Female 5:05 AM CARD FOLDER Gender Identity Not on file Sexual Orientation Not on file documented as of this encounter Plan of Treatment Not on file documented as of this encounter Visit Diagnoses Not on filedocumented in this encounter
--- OUTSIDE RECORDS SUMMARY | 2024-05-03 20:34 | XMS_ITS | Encounter Summary ---
Author Organization [facility] Healthcare Address [address] [place] [address] Care Team Providers Care Panel Installer Name Role Phone Mauri Jaime MD Primary Care Provider [phone] Guerrero Middleton Unavailable [phone] Reason for Visit * Reason Onset Date Comments GI Preprocedure 05/28/2023 Encounter Details Date Type Department Care Team (Late st Contact Info) Description 05/28/2023 Telephone [facility] Specialty Services [address] [place] [phone] Bailey Land RN GI Preprocedure Social History Tobacco Use Types Packs/Day Years Used Date Smoking Tobacco: Never Assessed Personal Safety Answer Date Recorded Getting School Help Needed Not on file 05/29 Comments Unknown Sex and Gender Information Value Date Recorded Sex Assigned at Not on file Legal Sex Female 5:05 AM 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 DELIVERY DRIVER Gender Identity Not on file Sexual Orientation Not on file documented as of this encounter Last Filed Vital Signs Vital Sign Reading Time Taken Comments Blood Pressure - - Pulse - - Temperature - - Respiratory Rate - - Oxygen Saturation - - Inhaled Oxygen Concentration - - Weight 80.7 kg (178 lb) 05/28/2023 11:35 AM LOCAL DELIVERY DRIVER Height 165.1 cm (5' 5 ) 05/28/2023 11:35 AM LOCAL DELIVERY DRIVER Body Mass Index 29.62 05/28/2023 11:35 AM LOCAL DELIVERY DRIVER documented in this encounter Miscellaneous Notes * Telephone Encounter - Bailey Land RN - 05/28/2023 11:38 AM LOCAL DELIVERY DRIVER Images from the original note were not included. PROCEDURE Type: EUS Indication: chronic pancreatitis Referring Physician: Gretchen Blue NP Date Referred: 05-28-23 CLINICAL ASSESSMENT [x] Clinical assessment obtained via phone call with patient 05-28-2023 [x]COVID/Flu Screening questions []BMI>45, Weight >350 lbs [] Patient had GI procedure/CPAP clinic/GI clinic <30 days (if Yes, no medical screening questions needed unless new clinical issues in last 30 days) Medical screening questions: BMI/Weight: NA CARDIOVASCULAR: None RESPIRATORY/LUNG: None RENAL/LIVER/GI: None fatty liver GI: Previous COLON or EGD: Hx of Polyps, Gibson, Barretts:no Hx of Constipation:N/A Have you ever required a two day prep? N/A BLEEDING/CLOTTING: None NEUROLOGICAL: None ENDOCRINE: Diabetes- No BG above 250 or AIC >10 for [facility]. No BG =>400 for [facility]. Bg>300 at [facility] may get rescheduled PRIOR PROCEDURE ISSUES: None DOCK GRADER/: NA hysterectomy IMPLANTS.: Port for plasma pheresis PSYCH/Behavioral Hx: No SC has limited security Notes: hx necrotizing pancreatitis PACEMAKER/ICD Y/N: No/NA Device info: Last documented device check: Any shocks since last cards visit (if yes must see cardiology for procedure clearance): DIALYSIS Y/N: No/NA []HD- Schedule on non-HD day, see protocol []PD- Drain PD fluid AM of procedure, if colonoscopy order AB ppx, see protocol REGULAR DIABETIC MEDS Y/N: Yes [x]Yes- Discuss diabetes medication management with prescribing physician Insulin, metformin, jardiance GLP DIABETIC MEDICATIONS Y/N: No/NA None Educated Patient on the need to hold Medication, and to contact their ordering MD or Cable Swager about bridging medication for procedure. No [] Yes - Letter Sent to Ordering Physician/Cable Swager Date sent: Hold instructions: GLP Weight Loss Medications No Educated Patient on the need to hold Medication, and to contact their ordering MD or Cable Swager about bridging medication for procedure. Y/N: No/NA None [] Yes - Letter Sent to Ordering Physician/Cable Swager Hold older Instructions: BLOOD THINNERS/ANTICOAG/ANTIPLATELET (BESIDES ASA) Medication: NONE Physician contacted for hold order/date sent: Hold order Method sent: Date hold received: Hold instructions: CONTINUE ASPIRIN INFORMATION REQUESTED []Imaging:requested from [facility] []Medical Progress Note/H&P []Medication list []Other: PATIENT OPTIMIZATION []Physician reviewing escalation: []CPAP: Date scheduled: Outcome : [] Location limitations: Scheduling Scheduling location limitations: with dr Galvez 1-2 weeks Objects Conservator needed [x] NA Language: POA [x] NA Name: Required extended education:no SPECIAL PROCEDURE INSTRUCTIONS Scheduling Notes Procedure information Date of procedure: 06-05-2023 Time of procedure: 1000 Arrival time: 0900 Location: [facility] Proceduralist: Lenny Instructions Method of instructions: Verbal and E-mail [email or web address] [x]Confirmation of ride/stainless steel finisher [x]Post anesthesia restrictions given [x]NPO Instructions: nothing by mouth after midnight [x]Diet Instructions: [x]Take non-blood thinner prescription meds that morning [x]Bring med list, photo ID, insurance card, no valuables []Bring COVID vaccination card (if vaccinated) Bowel Prep Prep prescribed: NA Method of Bowel Prep (RX): NA EUS Received: Today Scott Ruiz Gi Biliary Procedure Referrals Pool Mikel Galvez MD McGee, Kaylha Eus with me in next 1-2 weeks Previous Messages Previous Messages ----- Message ----- From: Scott Ruiz Sent: 05/22/2023 2:00 PM LOCAL DELIVERY DRIVER To: Mikel Galvez MD Subject: FW: Biliary Records Review Please advise on schedulin. Office visit versus direct procedure (specify procedure) 2. Urgency/timeframe to schedule 3. Dx 4. Covid Test? ----- Message ----- From: Jason Escobedo Sent: 05/22/2023 1:55 PM LOCAL DELIVERY DRIVER To: Deepak Lee Gi Biliary 1 Pool Subject: Biliary Records Review Records scanned under media tab, 'outside secondary info'. Please advise on scheduling. L DELIVERY DRIVER L DELIVERY DRIVER documented in this encounter Plan of Treatment Not on file documented as of this encounter Visit Diagnoses Not on filedocumented in this encounter Care Teams Panel Installer Relationship Specialty Start Date End Date Mauri Jaime MD [address] [place] [address] PCP - General Internal Medicine 05/28/23 Guerrero Middleton PA [address] [place] [address] 05/28/23 documented as of this encounter
--- OUTSIDE RECORDS SUMMARY | 2024-05-03 20:34 | XMS_ITS | Encounter Summary ---
Author Organization [facility] Healthcare Address [address] [place] [address] Care Team Providers Care Collections Rep Name Role Phone Mauri Jaime MD Primary Care Provider [phone] Guerrero Middleton PA Unavailable [phone] Encounter Details Date Type Department Care Team (Late st Contact Info) Description 07/24/2023 Orders Only [facility] Medical Group Cardiology [address] [place] [address] Ceasar Ng MD [address] [place] [address] Social History Tobacco Use Types [...] on file Legal Sex Female 5:05 AM HSE COORDINATOR Gender Identity Not on file Sexual Orientation Not on file documented as of this encounter Plan of Treatment Not on file documented as of this encounter Procedures Procedure Name Priority Date/Time Associated Diagnosis Comments CARDIOLOGY DOCUMENT SCAN Routine 024 10:24 AM CDT CARDIOLOGY DOCUMENT SCAN Routine 024 10:21 AM CDT documented in this encounter Results * Cardiology Document Scan (07/23/2023 10:24 AM CDT) Anatomical Region Laterality Modality Other us [facility] Evie Sheffield MD [facility] CARDIAC SERVICES PRO CEDURES Final Result * Cardiology Document Scan (07/22/2023 10:21 AM CDT) Anatomical Region Laterality Modality Other us Ceasar Ng MD CV CARDIAC SERVICES PROC EDURES Final Result documented in this encounter Visit Diagnoses Not on filedocumented in this encounter Care Teams Collections Rep Relationship Specialty Start Date End Date Mauri Jaime MD [address] [facility] [address] [place] [address] PCP - General Internal Medicine 05/28/23 Guerrero Middleton PA [address] [place] [address] 05/28/23 documented as of this encounter
--- OUTSIDE RECORDS SUMMARY | 2024-05-03 20:34 | XMS_ITS | Encounter Summary ---
Author Organization 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
--- OUTSIDE RECORDS SUMMARY | 2024-05-03 20:34 | XMS_ITS | Encounter Summary ---
Author Organization [facility] Address [address] [place] [address] Phone Care Team Providers Care Commercial Green Building Architect Name Role Phone Mauri Jaime MD Primary Care Provider [phone] Guerrero Middleton Unavailable [phone] Encounter Details Date Type Department Care Team (Late st Contact Info) Description 06/11/2023 Telephone [facility] Gastroenterology [address] [facility] [address] [facility] 12th [place] [address] [place] [address] Matt Rees Social History Tobacco [...] on file Legal Sex Female 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 Galvez's recommendations: Return to my office in 3 months. MRCP prior to clinic visit. Thank you, CLAU Dyer BSN Clinical Nurse Coordinator, [facility] in [place], ESTATE ATTORNEY documented in this encounter Plan of Treatment Not on file documented as of this encounter Visit Diagnoses Not on filedocumented in this encounter Care Teams Commercial Green Building Architect Relationship Specialty Start Date End Date Mauri Jaime MD [address] [place] [address] PCP - General Internal Medicine 05/28/23 Guerrero Middleton PA [address] [place] [address] 05/28/23 documented as of this encounter
--- OUTSIDE RECORDS SUMMARY | 2024-05-03 20:34 | XMS_ITS | Encounter Summary ---
Author Organization [facility] Address [address] [place] [address] Phone Care Team Providers Care Tap Out Operator Name Role Phone Mauri Jaime MD Primary Care Provider [phone] Guerrero Middleton Unavailable [phone] Encounter Details Date Type Department Care Team (Late st Contact Info) Description 06/06/2023 Telephone 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 Cancelled IOV with Dr. Boateng since pt will be following with . INE BUILDER * Telephone Encounter - Matt Rees - 06/06/2023 3:43 PM CST ----- Message from Manisha Resendiz RN sent at 06/05/2023 2:09 PM MACHINE BUILDER ----- Regarding: ROV + MRCP Hi Matt, Can you please coordinate the following from Dr. Galvez's recommendations: Return to my office in 3 months. MRCP prior to clinic visit. Thank you, CLAU Dyer BSN Clinical Nurse Coordinator, [facility] in [facility] INE BUILDER documented in this encounter Plan of Treatment Not on file documented as of this encounter Visit Diagnoses Not on filedocumented in this encounter Care Teams Tap Out Operator Relationship Specialty Start Date End Date Mauri Jaime MD [address] [place], [place] [id number] PCP - General Internal Medicine 05/28/23 Guerrero Middleton PA [address] [place] [address] 05/28/23 documented as of this encounter
--- OUTSIDE RECORDS SUMMARY | 2024-05-03 20:34 | XMS_ITS | Encounter Summary ---
Author Organization [facility] Healthcare Address [address] [place] [address] Care Team Providers Care Radial Arm Saw Operator Name Role Phone Mauri Jaime MD Primary Care Provider [phone] Guerrero Middleton Unavailable [phone] Reason for Visit * Auth/Cert (Routine) Specialty Diagnoses / Procedures Referred By Contac t Referred To Contact Diagnoses Chronic pancreatitis, unspecified pancreatitis type (HCC) chronic pancreatitis Procedures NE EDG US EXAM SURGICAL ALTER STOM DUODENUM/JEJUNUM EUS TE/OA interventional Referral ID Status Reason Start Date Expiration Date Visits Re quested Visits Authorized [id number] 1 1 Encounter Details Date Type Department Care Team (Latest Contact Info) Description 06/05/2023 8:25 AM SNACK BAR COOK - 06/05/2023 11:57 AM SNACK BAR COOK Hospital Encounter [facility] [address] [facility] [place] [address] Mikel Galvez MD [address] [place] [address] Chronic pancreatitis, unspecified pancreatitis type (HCC) Discharge Disposition: Discharge to home or self [...] on file Legal Sex Female 5:05 AM SNACK BAR COOK Gender Identity Not on file Sexual Orientation Not on file documented as of this encounter Last Filed Vital Signs Vital Sign Reading Time Taken Comments Blood Pressure 101/62 06/05/2023 11:38 AM SNACK BAR COOK Pulse 76 06/05/2023 11:38 AM SNACK BAR COOK Temperature 36.4 ??C (97.5 ??F) 06/05/2023 10:[address] Respiratory Rate 22 06/05/2023 11:38 AM SNACK BAR COOK Oxygen Saturation 94% 06/05/2023 11:38 AM SNACK BAR COOK Inhaled Oxygen Concentration - - Weight 81.6 kg (180 lb) 06/05/2023 8:58 AM SNACK BAR COOK Height 165.1 cm (5' 5 ) 06/05/2023 8:58 AM SNACK BAR COOK Body Mass Index 29.95 06/05/2023 8:58 AM SNACK BAR COOK documented in this encounter Medications at Time [...] tablet TAKE 1 TABLET BY MOUTH EVERY CHILDCARE TEACHER 06/01/19 22 fenofibrate (TRIGLIDE) 160 mg tablet [...] tablet TAKE 1 TABLET BY MOUTH EVERY CHILDCARE TEACHER 06/01/21 Yes Andrew Escobar MD fenofibrate (TRIGLIDE) [...] (20 mg total) by mouth daily Yes ProviderAndrew MD traZODone (DESYREL) 100 mg tablet Take by mouth nightly Yes ProviderAndrew MD TRESIBA 200 unit/mL (3 mL) pen for injection INJECT 36 UNITS SUBCUTANEOUSLY IN THE MORNING Yes Provider, MD Andrew Review of Systems A pertinent, focused review [...] planned procedure for the reasons stated above. K BAR COOK documented in this encounter Procedure Notes * Mikel Galvez MD - 06/05/2023 9:51 AM CSTAssociated Order(s): EUS GI ENDOS[facility] Patient Name: Casandra Jones Procedure Date: 06/05/2023 9:51 AM Date of : 1975 Admit Type: Outpatient Age: 47 Gender: Female Attending MD: Mikel Galvez M.D. Room: [facility] ENDOSCOPY ROOM 2 Note Status: Finalized Procedure: [...] obtained.The Olympus curved linear array therapeutic endosonoscope [id number] was introduced through the mouth, and advanced [...] following this procedure please call my office [phone]). After hours and evenings please call [phone] and speak to the GI fellow consumer relations complaint clerk. Please tell the fellow that Dr. Galvez [...] On: 06/05/2023 9:51 AM Recognized by the [employer] for promoting quality in endoscopy K BAR COOK documented in this encounter Plan of Treatment Pending Results Name Type Priority Associated Diagnoses Date/Time ESOPHAGOGASTRODUODENOSCOPY ENDOSCOPIC ULTRASOUND Endo Imaging Procedure IP Routine Chronic pancreatitis, unspecified pancreatitis type (HCC) 06/05/2023 10:37 AM SNACK BAR COOK documented as of this encounter Procedures Procedure Name Priority Date/Time Associated Diagnosis Comments US ENDOSCOPIC IP Routine 06/05/2023 10:37 AM SNACK BAR COOK Chronic pancreatitis, unspecified pancreatitis type (HCC) EUS 06/05/2023 9:51 AM SNACK BAR COOK POCT GLUCOSE DEVICE Routine 06/05/2023 9 :14 AM SNACK BAR COOK documented in this encounter Results * EUS (06/05/2023 9:51 AM SNACK BAR COOK) Anatomical Region Laterality Modality Other Narrative Procedure Note Mikel Galvez MD - 06/05/2023 9:51 AM CST GI ENDOSCOPY [facility] Patient Name: Casandra Jones Procedure Date: 06/05/2023 9:51 AM Date of : 1975 Admit Type: Outpatient Age: 47 Gender: Female Attending MD: Mikel Galvez M.D. Room: [facility] ENDOSCOPY ROOM 2 Note Status: Finalized Procedure: [...] consent was obtained.The Olympuscurved linear array therapeutic [id number] was introduced through the mouth, and advanced [...] following this procedure please call my office [phone]). After hours and eveningsplease call [phone] and speak to the GI fellow ollie. [...] On: 06/05/2023 9:51 AM Recognized by the [employer] for promoting quality in endoscopy Mikel Galvez MD ENDOSCOPY PROCEDURES Final Result * POCT glucose (06/05/2023 9:14 AM SNACK BAR COOK) Glucose, POC 124 70 - 199 mg/dL [facility] Blood 06/05/2023 9:14 AM SNACK BAR COOK 06/05/2023 9:14 AM SNACK BAR COOK Mikel Galvez MD LAB POCT ORDERABLES - ALBARO CE Final Result [facility] Department [place] [address] documented in this encounter Visit Diagnoses Diagnosis Chronic pancreatitis, unspecified pancreatitis type (HCC) documented [...] tablet TAKE 1 TABLET BY MOUTH EVERY CHILDCARE TEACHER 06/01/19 22 doxepin 6 mg tablet Take [...] 06/05/2023 documented in this encounter Care Teams Radial Arm Saw Operator Relationship Specialty Start Date End Date Mauri Jaime MD [address] [place] [address] PCP - General Internal Medicine 05/28/23 Guerrero Middleton PA [address] [place] [address] 05/28/23 documented as of this encounter
--- OUTSIDE RECORDS SUMMARY | 2024-05-03 20:36 | XMS_ITS | Encounter Summary ---
Author Organization [facility] Address [address] [place] [address] Care Team Providers Care Packaging Coordinator Name Role Phone Guerrero Middleton PA-C Primary Care Provide r Encounter Details Date Type Department Care Team (Late st Contact Info) Description 12/17/2023 External Device Data [place] ABSTRACTION Provider, Abstract NO ADDRESS ON FILE Social History Tobacco Use Types Packs/Day Years Used Date Smoking Tobacco: Every Day Cigarettes 1 18 Smokeless Tobacco: Never Comments:nicotine patch requ ested Alcohol Use Standard Drinks/Week Comments No 0 (1 standard drink = 0.6 oz pur e alcohol) Feeling Safe Answer Date Recorded Within the last year, have y ou been afraid of your partner or ex-partner? No 08/21/2018 Within the last year, have y ou been humiliated or emotionally abused in other ways by your partner or ex-partner? No Within the last year, have y ou been kicked, hit, slapped, or otherwise physically hurt by your partner or ex-partner? No 08/21/2018 Within the last year, have y ou been raped or forced to have any kind of sexual activity by your partner or ex-partner? No 08/21/2018 Social Connections Answer Date Recorded In a typical week, how many times do you talk on the phone with family, friends, or neighbors? Three times a week 08/21/2018 How often do you get togethe r with friends or relatives? Three times a week 08/21/2018 How often do you attend [facility] or mandaeism services? Never 08/21/2018 Do you belong to any clubs o r organizations such as anabaptist groups, unions, fraternal or athletic groups, or school groups? No 08/21/2018 How often do you attend meet ings of the clubs or organizations you belong to? Never 08/21/2018 Are you , , di vorced, , never , or living with a partner? 08/21/2018 Financial Resource Strain Answer Date R ecorded How hard is it for you to pa y for the very basics like food, housing, medical care, and heating? Not hard at all 08/21/2018 Food Insecurity Answer Date Recorded Within the past 12 months, y ou worried that your food would run out before you got the money to buy more. Never true 08/22/19 19 Within the past 12 months, t he food you bought just didn't last and you didn't have money to get more. Never true 08/21/2018 Transportation Needs Answer Date Record ed In the past 12 months, has l ack of transportation kept you from medical appointments or from getting medications? No 07/29 In the past 12 months, has l ack of transportation kept you from meetings, work, or from getting things needed for daily living? No 08/21/2018 Feeling Safe Answer Date Recorded Are you in a relationship wi th someone who hurts you emotionally and/or physically? No 09/18/2023 Food Insecurity Answer Date Recorded Social/Environmental Concerns No concerns Transportation Needs Answer Date Record ed Social/Environmental Concerns No concerns Housing Stability Answer Date Recorded Social/Environmental Concerns No concerns Utility Needs Answer Date Recorded Social/Environmental Concerns No concerns Sex and Gender Information Value Date Recorded Sex Assigned at Not on file Gender Identity Not on file Sexual Orientation Not on file documented as of this encounter Plan of Treatment Upcoming Encounters Date Type Department Care Team (Late st Contact Info) Description 09/14/2024 3:00 PM CDT Office Visit [facility] - [place] [address] [place] [address] Marlys Mayer MD [address] [place] [address] documented as of this encounter Visit Diagnoses Not on filedocumented in this encounter Care Teams Packaging Coordinator Relationship Specialty Start Date End Date Guerrero Middleton PA-C PCP - General Physician Distribution Systems Serviceperson 02/13/18 documented as of this encounter
--- OUTSIDE RECORDS SUMMARY | 2024-05-03 20:36 | XMS_ITS | Encounter Summary ---
Author Organization [facility] Address [address] [place] [address] Care Team Providers Care Car Deliverer Name Role Phone Guerrero Middleton PA-C Primary Care Provide r Reason for Visit * Reason Comments Follow Up Coronary artery dise ase involving togiak coronary artery of togiak heart without angina pectoris Encounter Details Date Type Department Care Team (Late st Contact Info) Description 04/20/2024 3:00 PM WOOD BARKER Office Visit [facility] Heart and Vascular - [facility] [address] [place] [address] Marlys Mayer MD [address] [place], [place] [id number] Coronary artery disease involving togiak coronary artery of togiak heart without angina pectoris (Primary Dx); Type 1 diabetes mellitus without complication; Chylomicronemia syndrome; Chronic recurrent pancreatitis Social History Tobacco Use Types Packs/Day Years Used Date Smoking Tobacco: Every Day Cigarettes 1 18 Smokeless Tobacco: Never Tobacco Cessation:Ready to Q uit: Not Asked; Counseling Given: Not Answered Comments:nicotine patch requested Alcohol Use Standard Drinks/Week Comments No 0 [...] week 08/21/2018 How often do you attend chur ch or latter day services? Never 08/21/2018 Do you belong to any clubs o r organizations such as temple groups, unions, fraternal or athletic groups, or [...] Sign Reading Time Taken Comments Blood Pressure 112/70 04/20/2024 3:12 PM WOOD BARKER Pulse 103 04/20/2024 3:12 PM WOOD BARKER Temperature - - Respiratory Rate - - Oxygen Saturation 96% 04/20/2024 3:12 PM WOOD BARKER Inhaled Oxygen Concentration - - Weight 86.6 kg (191 lb) 04/20/2024 3:12 PM WOOD BARKER Height 165.1 cm (5' 5 ) 04/20/2024 3:12 PM WOOD BARKER Body Mass Index 31.78 04/20/2024 3:12 PM WOOD BARKER documented in this encounter Progress Notes * Nai Zuniga - 04/20/2024 3:18 PM CST Patient denies chest pain, shortness of breath, swelling in legs. Pt states dizziness, headaches, lightheadedness occasionally. BARKER * Marlys Mayer MD - 04/20/2024 3:15 PM CST [facility] Follow-up Visit Casandra Mccray Bryansergio, a 48 y.o. female returns for follow-up of these problems: ICD-10-CM ICD-9-CM 1. Coronary artery disease involving togiak coronary artery of togiak heart without angina [id number] 414.01 2. Type 1 diabetes mellitus without complication E10.9 250.01 3. Mixed hyperlipidemia E78.2 272.2 Since last visit on 01/20/2024: Hospitalizations: [facility] with abdominal pain ? Chronic pancreatitis - trigs were elevated Procedures or surgeries: Abdominal CT Cardiac symptoms: Denies chest pain, PND, orthopnea, edema,palpitations, syncope or near syncope. Her trigs have been <400 since hospitalization Medications: No new medications Side effects: None reported Current Outpatient Medications Medication Sig Dispense Refill Blood-Glucose Sensor (Dexcom G7 Sensor) Device buPROPion HCL (WELLBUTRIN SR) 150 mg Sustained Release 12 hour tablet Take 1 Tablet by mouth daily. NovoLOG U-100 Insulin aspart 100 unit/mL vial INFUSE 100 UNITS VIA CONTINUOUS SUBCUTANEOUS INFUSIONDAILY WITH A MAX DAILY DOSE OF 100 UNITS BD Insulin Syringe Ultra-Fine 0.3 mL 31 gauge x 5/16 Syringe levothyroxine 200 mcg tablet Take 1 Tablet by mouth daily. metFORMIN (GLUCOPHAGE) 1,000 mg tablet Take 1 Tablet (1,000 mg) by mouth 2 times daily with meals. HOLD for 48h post LHC losartan potassium (LOSARTAN ORAL) Take by mouth. buspirone HCl (BUSPAR ORAL) Take by mouth. LORazepam (ATIVAN) 1 mg tablet Take 1 mg by mouth every 6 hours as needed for Anxiety. ondansetron (ZOFRAN ODT) 4 mg Tablet, Rapid Dissolve Take 1 Tablet (4 mg) by mouth every 6 hours asneeded for Nausea/Emesis. 30 Tablet 0 fyudyb-oupopwoa-zwophfq DR (Creon) 36,000-114,000-180,000 unit capsule Take 2 Capsules by mouth 3 times daily with meals. 180 Capsule 0 metoprolol succinate (TOPROL XL) 25 mg Extended Release 24 hour tablet Take 0.5 Tablets (12.5 mg) by mouth daily. 15 Tablet 0 oxyCODONE (ROXICODONE) 10 mg tablet Take 1 Tablet (10 mg) by mouth every 6 hours. Max Daily Amount:40 mg 20 Tablet 0 aspirin (ECOTRIN EC) 81 mg Tablet, Delayed Release (E.C.) Take 81 mg by mouth daily. ticagrelor (BRILINTA) 90 mg Tablet Take 90 mg by mouth 2 times daily. pantoprazole (PROTONIX) 40 mg Tablet, Delayed Release (E.C.) Take 40 mg by mouth daily. atorvastatin (LIPITOR) 40 mg tablet Take 80 mg by mouth daily. fenofibrate (LOFIBRA) 160 mg Tablet TAKE 1 TABLET BY MOUTH EVERY DAY 90 Tablet 0 citalopram (CeleXA) 40 mg tablet TAKE 1 TABLET BY MOUTH EVERY DAY 90 Tablet 1 traZODone (DESYREL) 100 mg tablet Take 100 mg by mouth daily at bedtime . No current facility-administered medications for this visit. Past Medical History: Diagnosis Date Anxiety Chylomicronemia syndrome Chylomicronemia syndrome Depression Diabetes mellitus DM type 2 (diabetes mellitus, type 2) Family history of diabetes mellitus 05/15/2011 Family history of early CAD 05/15/2011 GERD (gastroesophageal reflux disease) High triglycerides History of gestational diabetes 05/15/2011 HLD (hyperlipidemia) Hypothyroidism Metabolic syndrome 05/15/2011 Pancreatitis PCOS (polycystic ovarian syndrome) 05/15/2011 Smoker Past Surgical History: Procedure Laterality Date HX APPENDECTOMY HX HYSTERECTOMY partial due to endometriosis 2006 HX TONSILLECTOMY HX TUNNELED VENOUS CATHETER PLACEMENT Right 09/29/2018 HX TUNNELED VENOUS PORT PLACEMENT Left 05/11/2019 removal of left power flow port & replacement of left power flow port 05/11/2019 NE CATH PLMT L HRT & ARTS W/NJX & ANGIO IMG S&I N/A 11/29/2023 Left heart cath performed by Miguel Lewis MD at [facility] INVASIVE CARDIOLOGY NE CATH PLMT L HRT & ARTS W/NJX & ANGIO IMG S&I N/A 11/29/2023 Left Ventriculogram performed by Miguel Lewis MD at [facility] INVASIVE CARDIOLOGY NE ESOPHAGOGASTRODUODENOSCOPY TRANSORAL DIAGNOSTIC N/A 03/08/2018 ESOPHAGOGASTRODUODENOSCOPY performed by Ceasar Vega MD at [facility] GI LAB Social History Socioeconomic History Marital status: Spouse name: Not on file Number of children: Not on file Years of education: Not on file Highest education level: Not on file Occupational History Employer: [employer] Tobacco Use Smoking status: Every Day Current packs/day: 1.00 Average packs/day: 1 pack/day for 18.0 years (18.0 ttl pk-yrs) Types: Cigarettes Smokeless tobacco: Never Tobacco comments: nicotine patch requested Vaping Use Vaping status: Never Used Substance and Sexual Activity Alcohol use: No Drug use: No Sexual activity: Yes Partners: Male Other Topics Concern Not on file Social History Narrative Merged History Encounter Social Determinants of Health Food Insecurity: No Food Insecurity (09/19/2023) Food Insecurity Patient needs follow up regarding:: No concerns Transportation Needs: No Transportation Needs (09/19/2023) Transportation Needs Patient needs follow up regarding:: No concerns Feeling Safe: Not At Risk (09/18/2023) Feeling Safe Patient has indicated abuse: : No Housing Stability: Low Risk (09/19/2023) Housing Stability Patient needs follow up regarding:: No concerns ROS General- without significant weight change Endo-without polyuria, polydipsia, hot or cold intolerance Pulmonary-without cough, SOB GI-without abdominal pain, constipation, diarrhea -without dysuria, hematuria MS-without myalgia Heme- without excessive bruising Neuro/psych-without sx of depression Physical Exam Ht 5' 5 (1.651 m) Wt 86.6 kg (191 lb) BMI 31.78 kg/m?? Wt Readings from Last 3 Encounters: 04/20/24 86.6 kg (191 lb) 01/20/24 88 kg (194 lb) 12/26/23 85.6 kg (188 lb 12.8 oz) General-No acute distress, alert, oriented Neck- without JVD, thyroid not enlarged Lungs-Clear to auscultation CV-Regular rate and rhythm, without murmer, gallop or rub. Without carotid bruits . Abdomen-soft, nontender without organomegaly Extremities-Without edema. Distal pulses normal. Lab Results Component Value Date/Time CHOLTOT 470 (H) 09/19/2023 12:59 AM CHOLTOT 297 (H) 08/25/2021 04:23 AM CHOLTOT 162 02/01/2019 10:15 PM HDL 16 (L) 09/19/2023 12:59 AM HDL 08/25/2021 04:23 AM Comment: Measured HDL is not accurate when the Triglyceride value exceeds 1200. HDL 30 (L) 02/01/2019 10:15 PM LDLCALC 08/25/2021 04:23 AM Comment: Calculated LDL is not accurate when the Triglyceride value exceeds 400. LDLCALC 02/01/2019 10:15 PM Comment: Calculated LDL is not accurate when the Triglyceride value exceeds 400. LDLCALC 07/29/2018 10:56 PM Comment: Calculated LDL is not accurate when the Triglyceride value exceeds 400. LDLDIRECT 47 09/19/2023 12:59 AM LDLDIRECT 110 08/10/2011 07:21 AM TRIGLYCERIDE 859 (H) 09/22/2023 11:44 PM TRIGLYCERIDE 743 (H) 09/22/2023 09:31 AM TRIGLYCERIDE 1,008 (H) 09/21/2023 09:10 PM Impression ICD-10-CM ICD-9-CM 1. Coronary artery disease involving togiak coronary artery of togiak heart without angina [id number] 414.01 2. 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 Chronic recurrent pancreatitis K86.1 577.1 HDL 29 LDL <30 TRIGS 356 Plan Discussed lifestyle Medications: Continue current medications Investigate newly released injectable drug for triglycerides- Olezarsen, Tryngolza- not on formulary -call [facility] specialty pharmacy Diagnostic Tests: Lipid panel q 2-3 mos Follow-up: Next OV in 4 mos or sooner if new or worsening cardiac symptoms BARKER documented in this encounter Plan of Treatment Upcoming Encounters Date Type Department Care Team (Late st Contact Info) Description 09/14/2024 3:00 PM CDT Office Visit [facility] Heart and Vascular - [place] 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
--- OUTSIDE RECORDS SUMMARY | 2024-05-03 20:36 | XMS_ITS | Encounter Summary ---
Author Organization [facility] Address [address] [place] [address] Care Team Providers Care Foreign Food Specialty Cook Name Role Phone Guerrero Middleton PA-C Primary Care Provide r Reason for Visit * Reason Comments Follow Up No cp, sob or mj carr Encounter Details Date Type Department Care Team (Latest Contact Info) Description 12/26/2023 10:30 AM CDT Office Visit [facility] Heart and Vascular At [address] [place] [address] Cris Sunshine NP [address] [place] [address] [address] [place] [address] Coronary artery disease involving navajo coronary artery of navajo heart without angina pectoris (Primary Dx); Mixed hyperlipidemia Social History Tobacco Use Types Packs/Day Years [...] often do you attend chur ch or taoist services? Never 08/21/2018 Do you belong to any clubs o r organizations such as sikh groups, unions, fraternal or athletic groups, or [...] Sign Reading Time Taken Comments Blood Pressure 124/74 12/26/2023 10:03 AM CDT Pulse 105 12/26/2023 10:03 AM CDT Temperature - - Respiratory Rate - - Oxygen Saturation 97% 12/26/2023 10: 03 AM CDT Inhaled Oxygen Concentration - - Weight 85.6 kg (188 lb 12.8 oz) 024 10:03 AM CDT Height 165.1 cm (5' 5 ) 12/26/2023 10:0 3 AM CDT Body Mass Index 31.42 12/26/2023 10:03 AM CDT documented in this encounter Progress Notes * Cris Sunshine, LIGHT TRUCK DRIVER - 12/26/2023 10:30 AM CDT [facility] Heart and Vascular Progress Note History of Present Illness: I had the pleasure of seeing Casandra Jones in the [facility] Heart and Vascular office today. She is a pleasant 48 y.o. female, with past medical history of OH 06/2003, CAD s/p PCI, chylomicronemia syndrome,DM and syncope. Last OV 11/18/23 to establish care. She had syncopal episodes in june while visiting mother in [place]. Had OH with with 3 TRACIE. Since then she had been fatigue and c/o palpitations. She underwent LHCon 11/29/23 which was notable for severe mid LAD stenosis (had progressed since june) treated with TRACIE x1. Overall she is doing well. She denies any chest pain, pressure or discomfort. No shortness of breath. She still has dizziness episodes. Primary Master Cosmetologist is Dr. Mayer Previous Cardiovascular Procedures: Echo 09/20/23:LVEF 60% MCOT 11/18/23: SR, No arrhythmia's noted Cardiac Catheterization 11/29/23: Severe mid LAD stenosis (progressed since 07/20) s/p PCI TRACIE x 1. Patent OM and RCA stents, unchanged stable calcified mild plaquing in dx, dLAD dRCA. LVEF Normal Lab Results Component Value Date CHOLTOT 470 (H) 09/19/2023 HDL 16 (L) 09/19/2023 LDLCALC 08/25/2021 Comment: Calculated LDL is not accurate when the Triglyceride value exceeds 400. LDLDIRECT 47 09/19/2023 LDLDIRECT 110 08/10/2011 TRIGLYCERIDE 859 (H) 09/22/2023 Medications: Current Outpatient Medications Medication Instructions aspirin (ECOTRIN EC) 81 mg, Oral, DAILY atorvastatin (LIPITOR) 80 mg, Oral, DAILY BD Insulin Syringe Ultra-Fine 0.3 mL 31 gauge x 5/16 Syringe Blood-Glucose Sensor (Dexcom G7 Sensor) Device buPROPion HCL (WELLBUTRIN SR) 150 mg Sustained Release 12 hour tablet 1 Tablet, Oral, DAILY buspirone HCl (BUSPAR ORAL) Oral citalopram (CeleXA) 40 mg tablet TAKE 1 TABLET BY MOUTH EVERY DAY fenofibrate (LOFIBRA) 160 mg Tablet TAKE 1 TABLET BY MOUTH EVERY DAY levothyroxine 200 mcg tablet 1 Tablet, Oral, DAILY codtge-pwyafusq-mmaiwmp DR (Creon) 36,000-114,000-180,000 unit capsule 2 Capsules, Oral, THREE TIMES DAILY WITH MEALS LORazepam (ATIVAN) 1 mg, Oral, EVERY 6 HOURS PRN losartan potassium (LOSARTAN ORAL) Oral metFORMIN (GLUCOPHAGE) 1,000 mg, Oral, TWO TIMES DAILY WITH MEALS, HOLD for 48h post LHC metoprolol succinate (TOPROL XL) 12.5 mg, Oral, DAILY NovoLOG U-100 Insulin aspart 100 unit/mL vial INFUSE 100 UNITS VIA CONTINUOUS SUBCUTANEOUS INFUSIONDAILY WITH A MAX DAILY DOSE OF 100 UNITS ondansetron (ZOFRAN ODT) 4 mg, Oral, EVERY 6 HOURS PRN oxyCODONE (ROXICODONE) 10 mg, Oral, EVERY 6 HOURS pantoprazole (PROTONIX) 40 mg, Oral, DAILY ticagrelor (BRILINTA) 90 mg, Oral, TWO TIMES DAILY traZODone (DESYREL) 100 mg, Oral, DAILY AT BEDTIME Physical Exam: BP 124/74 (BP Location: Left arm, Patient Position (BP): Sitting, BP Cuff Size: Adult) Pulse (!) 110 Ht 5' 5 (1.651 m) Wt 85.6 kg (188 lb 12.8 oz) SpO2 97% BMI 31.42 kg/m?? Body mass index is 31.42 kg/m??. General: Well appearing, No pain or distress, well nourished HEENT: Normocephalic Neck: no JVD, no carotid bruits Lungs: Respirations unlabored, clear to auscultation Heart: RRR, normal S1, S2, no S3 or S4, no murmurs, gallops or rubs Abd: Soft, non-tender, non-distended. Normoactive bowel sounds. Extremities: No edema; No cyanosis, clubbing. Peripheral pulses are 2+ Neurologic: Awake, alert and oriented. Psych: Mood appropriate Review of Systems: GEN: No fever or chills HEENT: No headaches, loss of consciousness or vision changes Skin: no rashes or bruising/redness Pulmonary: No dyspnea, cough or hemoptysis CV: No chest pain, orthopnea, PND or palpitations GI: no nausea, vomiting, diarrhea, constipation, abd pain, melena : no dysuria reported or hematuria Musculoskeletal: No myalgias Neurological: No CVA or TIA symptoms DIAGNOSIS/ASSESSMENT/PLAN CAD s/p PCI -Recent TRACIE to LAD 8 -Continue ASA, Brilinta, toprol and atorvastatin HLD/Chylomicronemia syndrome - LDL 47, Continue Atorvastatin -Trig 859, Continue fenofibrate -She has a follow-up scheduled with Dr. Mayer next month DM -Recently started on insulin pump -A1c 9.7 Palpitations/tachycardia -Continue Toprol Dizziness -Ongoing episodes of dizziness with or without position changes -I instructed her to monitor her blood pressure 1 to 2 hours after taking her losartan and metoprolol and update us on these results. -May need to consider discontinuing losartan depending on her BP MARGARET Hastings [facility] - Heart and Vascular [facility] [address] [place] [address] Portions of this note may be dictated using voice recognition software. Variances in spelling and vocabulary are possible and unintentional. Not all errors are caught/corrected documented in this encounter Plan of Treatment Upcoming Encounters Date Type Department Care Team (Late st Contact Info) Description 09/14/2024 3:00 PM CDT Office Visit [facility] Heart and Vascular - [place] [address] [place] [address] Marlys Mayer MD [address] [place] [address] documented as of this encounter Visit Diagnoses Diagnosis Coronary artery disease involving navajo coronary artery of navajo heart without angina pectoris- Primary Mixed hyperlipidemia documented in this encounter Care Teams Foreign Food Specialty Cook Relationship Specialty Start Date End Date Guerrero Middleton PA-C PCP - General Physician Resident Service Coordinator 02/13/18 documented as of this encounter
--- OUTSIDE RECORDS SUMMARY | 2024-05-03 20:36 | XMS_ITS | Encounter Summary ---
Author Organization [facility] Address [address] [place] [address] Care Team Providers Care Roll Picker Name Role Phone Guerrero Middleton PA-C Primary Care Provide r Reason for Visit * Reason Onset Date Comments cath 2023 Encounter Details Date Type Department Care Team (Late st Contact Info) Description 2023 Telephone [facility] Heart and Vascular At [facility] [address] [place] [phone] Marlys Mayer MD [address] [place] [address] cath Social History Tobacco Use Types Packs/Day Years [...] often do you attend chur ch or oriental orthodox services? Never 08/21/2018 Do you belong to any clubs o r organizations such as jew groups, unions, fraternal or athletic groups, or [...] encounter Miscellaneous Notes * Telephone Encounter - Angie Blackburn RN - 2023 10:53 AM CDT Pt needs scheduled for heart catheterization.No allergy to contrast. No device or hx of CABG. Pre-op instructions reviewed with pt and copy sent with pt. Pt verbalized understanding. Cardiac Catheterization Your physician has recommended a cardiac catheterization. This procedure identifies plaque in the heart arteries and assesses other heart functions. One of the three following scenarios may occur based upon the results of the procedure: If minimal plaque is found in the arteries, it may be treated with medication and risk-factor modification. If plaque is preventing blood flow, the doctor may insert a stent. A stent is a metal circular wirethat will be inflated by a balloon to move the plaque against the domínguez of the artery and allow additional blood flow. If multiple plaque deposits are identified, the physician may recommend surgery. Prior to the procedure, IV medication will be given to assist with relaxation and comfort and bloodmay be drawn. You will be responsive and able to follow commands. Lidocaine will be injected into the upper thigh or the Right wrist to numb the area. A sheath (similar to an IV) will be placed in the femoral artery or the Right radial artery to allow access to the arterial system. X-rays will reveal pictures of the blood flow through the arteries as dye is injected. Appropriate treatment will beprovided based upon review of the images. Two to six hours of bed rest is typical following the procedure, bedrest is much shorter if they use the radial approach. Please plan to spend the entire day at the hospital. An overnight hospital stay is required if a stent is inserted. If surgery is recommended, scheduling will be determined based on urgency. Please check in at 11AM, [facility], 2nd floor registration, right off the elevators. [facility] cardiac catheterization, scheduled on November [address] Lewis. -----Please get labs done--Today/Tomorrow November 24 or November 25 --(do not need to fast)------- INSTRUCTIONS: ? Nothing to eat or drink after midnight. ? You MAY take your medications in the morning with sips of water Be sure to take your heart and bp meds, including aspirin Take aspirin 4 tabs of the 81 mg tabs the morning of your procedure. ? HOLD-- Metformin the day of procedure and the day after. ? No driving for 48 hours following the procedure, must have a airport driver ? Bring an overnight bag, in case you have to spend the night. Please call me if you have questions, Angie RN Phone number: [phone] documented in this encounter Plan of Treatment Upcoming Encounters Date Type Department Care Team (Late st Contact Info) Description 09/14/2024 3:00 PM CDT Office Visit [facility] - [address] [facility] [address] [place] [address] Marlys Mayer MD [address] [place] [address] documented as of this encounter Procedures Procedure Name Priority Date/Time Associated Diagnosis Comments PT AND APTT Routine 11/26/2023 12:34 PM CDT Abnormal coagulation profile CBC WITH DIFFERENTIAL Routine 11/26/2023 12:34 PM CDT Preoperative cardiovascular examination BASIC METABOLIC PANEL Routine 11/26/2023 12:34 PM CDT Preoperative cardiovascular examination documented in this encounter Results * PT AND APTT (11/26/2023 12:34 PM CDT) [facility] PTT 30 23 - 32 sec [facility] Comment: This test has not been validated for monitoring unfractionated heparin therapy. For testing that is validated for this type of therapy, please refer to the Heparin Anti-Xa assay (test code 76398). For additional information, please refer to http://education.WindowsWear/faq/UJH526 (This link is being provided for informational/educational purposes only.) INR 0.9 [facility] Comment: Reference Range ? 0.9-1.1 Moderate-intensity Warfarin Therapy 2.0-3.0 Higher-intensity Warfarin Therapy ?? 3.0-4.0 PROTIME 9.7 9.0 - 11.5 sec [employer] Comment: FASTING:YES FASTING: YES Test Performed at: [facility] [address] [place], [place] ??[phone] Kamryn Farris Blood 11/26/2023 12:3 4 PM CDT 11/26/2023 12:35 PM CDT Marlys Mayer MD HEMATOLOGY ORDERABLE S [facility] [phone] [facility] [address] [address] [place] [phone] * CBC WITH DIFFERENTIAL (11/26/2023 12:34 PM CDT) WBC 7.5 3.8 - 10.8 Thousand/u L [facility] RBC 3.93 3.80 - 5.10 Million/uL [facility] HEMOGLOBIN 11.8 11.7 - 15.5 g/dL [facility] HEMATOCRIT 36.6 35.0 - 45.0 % [facility] MCV 93.1 80.0 - 100.0 fL [facility] MCH 30.0 27.0 - 33.0 pg [facility] MCHC 32.2 32.0 - 36.0 g/dL [facility] RDW 14.2 11.0 - 15.0 % [facility] PLATELETS 254 140 - 400 Thousand/u L [facility] MPV 9.3 7.5 - 12.5 fL [facility] NEUTROPHIL ABSOLUTE 4,703 1,500 - 7,800 cells/uL [facility] LYMPHOCYTE ABSOLUTE 2,325 850 - 3,900 cells/uL [facility] MONOCYTE ABSOLUTE 375 200 - 950 cells/uL [facility] EOSINOPHIL ABSOLUTE 68 15 - 500 cells/uL [facility] BASOPHILS ABSOLUTE 30 0 - 200 cells/uL [facility] NEUTROPHIL 62.7 % [facility] LYMPHOCYTES 31.0 % [facility] MONOCYTE 5.0 % [facility] EOSINOPHILS 0.9 % [facility] BASOPHILS 0.4 % [facility] Comment: FASTING:YES FASTING: YES Test Performed at: [facility] [address] [place] ??[phone] [facility] Blood 11/26/2023 12:3 4 PM CDT 11/26/2023 12:35 PM CDT Marlys Mayer MD HEMATOLOGY ORDERABLE S Performing Organization Address City/[facility] Phone Number [facility] [phone] [facility] [address] [address] [place] [phone] * (ABNORMAL) BASIC METABOLIC PANEL (11/26/2023 12:34 PM CDT) GLUCOSE 125(H) 65 - 99 mg/dL [facility] Comment: ? Fasting reference interval For someone without known diabetes, a glucose value between 100 and 125 mg/dL is consistent with prediabetes and should be confirmed with a follow-up test. BUN 14 7 - 25 mg/dL [facility] CREATININE 0.57 0.50 - 0.99 mg/dL [facility] GFR 112 > OR = 60 mL/min/1. 73m2 [facility] BUN/CREAT RATIO SEE NOTE: 6 - 22 (calc) [facility] Comment: ?? Not Reported: BUN and Creatinine are within ?? reference range. ? SODIUM 140 135 - 146 mmol/L [facility] POTASSIUM 4.3 3.5 - 5.3 mmol/L [facility] CHLORIDE 104 98 - 110 mmol/L [facility] CO2 28 20 - 32 mmol/L [facility] CALCIUM 9.5 8.6 - 10.2 mg/dL [facility] Comment: FASTING:YES FASTING: YES Test Performed at: [facility] [address] [place] ??[phone] [facility] Blood 11/26/2023 12:3 4 PM CDT 11/26/2023 12:35 PM CDT Marlys Mayer MD CHEMISTRY ORDERABLES [facility] [phone] [facility] [address] [place] [address] documented in this encounter Visit Diagnoses Diagnosis Preoperative cardiovascular examination- Primary Pre-operative cardiovascular examination Abnormal coagulation profile documented in this encounter Care Teams Roll Picker Relationship Specialty Start Date End Date Guerrero Middleton PA-C PCP - General Physician General Cleaner 02/13/18 documented as of this encounter
--- OUTSIDE RECORDS SUMMARY | 2024-05-03 20:36 | XMS_ITS | Encounter Summary ---
Author Organization [facility] Address [address] [place] [address] Care Team Providers Care Inspecting Supervisor Name Role Phone Guerrero Middleton PA-C Primary Care Provide r Reason for Visit * Reason Comments Follow Up 2 month f/uQuestions about low bp. 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 Never 08/21/2018 Do you belong to any clubs o r organizations such as rastafarian groups, unions, fraternal or athletic groups, or [...] Sign Reading Time Taken Comments Blood Pressure 124/70 01/20/2024 1:17 PM CDT Pulse 109 01/20/2024 1:17 PM CDT Temperature - - Respiratory Rate - - Oxygen Saturation 99% 01/20/2024 1:17 PM CDT Inhaled Oxygen Concentration - - Weight 88 kg (194 lb) 01/20/2024 1:17 PM CDT Height 165.1 cm (5' 5 ) 01/20/2024 1:17 PM CDT Body Mass Index 32.28 01/20/2024 1:17 PM CDT documented in this encounter Progress Notes * Marlys Mayer MD - 01/20/2024 1:29 PM CDT [facility] HE[facility]ULAR Follow-up Visit Casandra Mccray Robert, a 48 y.o. female returns for follow-up of these problems: ICD-10-CM ICD-9-CM 1. Coronary artery disease involving dry creek coronary artery of dry creek heart without angina [id number] 414.01 2. Mixed hyperlipidemia E78.2 272.2 3. Type 1 diabetes mellitus without complication E10.9 250.01 Since last visit on 11/18/2023: Hospitalizations: [facility] Procedures or surgeries: OT monitor, LHC > TRACIE to LAD 11/29/2023 Cardiac symptoms: Denies chest pain, PND, orthopnea, edema,palpitations, syncope or near syncope. Medications: No new medications She stopped both metoprolol and losartan due to feeling lightheaded; feels better but HR is elevated She is in cardiac rehab t [facility] Side effects: None reported Current Outpatient Medications [...] hours asneeded for Nausea/Emesis. 30 Tablet 0 kjfqlh-[id number] DR (Creon) 36,000-114,000-180,000 unit capsule Take 2 [...] replacement of left power flow port 05/11/2019 CO CATH PLMT L HRT & ARTS W/NJX & ANGIO IMG S&I N/A 11/29/2023 Left heart cath performed by Miguel Lewis MD at [facility] INVASIVE CARDIOLOGY CO CATH PLMT L HRT & ARTS W/NJX & ANGIO IMG S&I N/A 11/29/2023 Left Ventriculogram performed by Miguel Lewis MD at [facility] INVASIVE CARDIOLOGY CO ESOPHAGOGASTRODUODENOSCOPY TRANSORAL DIAGNOSTIC N/A 03/08/2018 ESOPHAGOGASTRODUODENOSCOPY performed by Ceasar Vega MD at [facility] GI LAB Social History Socioeconomic History Marital status: Spouse name: Not on file Number of children: Not on file Years of education: Not on file Highest education level: Not on file Occupational History Employer: [employer] Tobacco Use Smoking status: Every Day Current [...] Merged History Encounter Social Determinants of Health Financial Resource Strain: Low Risk (08/21/2018) Financial Resource Strain Difficulty of Paying Living Expenses: Not hard at all Food Insecurity: No Food Insecurity (09/19/2023) Food Insecurity Patient needs follow up regarding:: No concerns Transportation Needs: No Transportation Needs (09/19/2023) Transportation Needs Patient needs follow up regarding:: No concerns Social Connections: Moderately Isolated (08/21/2018) Social Connections Frequency of Communication with Friends and Family: Three times a week Frequency of Social Gatherings with Friends and Family: Three times a week Attends Mu-Ism Services: Never Active Member of Clubs or Organizations: No Attends Club or Organization Meetings: Never Marital Status: Intimate Partner Violence: Not At Risk (09/18/2023) Intimate Partner Violence Patient has indicated abuse: : No Housing Stability: Low Risk (09/19/2023) Housing Stability Patient needs follow up regarding:: No concerns ROS General- without significant weight change +URI Endo-without polyuria, polydipsia, hot or cold intolerance Pulmonary-without cough, SOB GI-without abdominal pain, constipation, diarrhea -without dysuria, hematuria MS-without myalgia Heme- without excessive bruising Neuro/psych-without sx of depression Physical Exam BP 124/70 Pulse (!) 109 Ht 5' 5 (1.651 m) Wt 88 kg (194 lb) SpO2 99% BMI 32.28 kg/m?? Wt Readings from Last 3 Encounters: 01/20/24 88 kg (194 lb) 12/26/23 85.6 kg (188 lb 12.8 oz) 11/29/23 83.9 kg (185 lb) General-No acute distress, alert, oriented Neck- without JVD, thyroid not enlarged Lungs-Clear to auscultation CV-Regular rate and rhythm, without murmer, gallop or rub. Without carotid bruits . Abdomen-soft, nontender without organomegaly Extremeties-Without edema. Distal pulses normal. Lab Results Component [...] AM TRIGLYCERIDE 1,008 (H) 09/21/2023 09:10 PM MCOT 12/22/2023 DATE OF SERVICE: STUDY Mobile cardiac outpatient telemetry report. DIAGNOSIS Syncope and collapse. FINDINGS The patient was enrolled from 11/18/2023 to 12/09/2023 with a total monitored time of 15 days, 11 hours, 52 minutes. The primary rhythm was sinus rhythm with heart rate ranging from 61 to 150 beats per minute with anaverage heart rate of 90 beats per minute. No atrial fibrillation was noted. No PACs were noted on the monitor. No SVT seen. No PVCs were seen on the monitor. No ventricular tachycardia noted. No pauses or conduction abnormalities were seen. There were 6 patient-triggered events and 12 autotriggered events. The patient- triggered events were for symptom other than listed, dizziness, and lightheadedness. These all revealed sinus tachycardia with heart rates ranging from 103 to 125 beats per minute. No arrhythmias noted. The autotriggered events showed sinus rhythm to sinus tachycardia, the fastest heart rate was 150 per minute. No arrhythmias were noted. C & PCI 11/29/2023 SUMMARY: - Severe mid LAD severe (progressed/worse than was June 2023); PCI TRACIE x 1 today - Patent OM and RCA stents from earlier in year; unchanged stable calcified mild plaquing in diagonal, distal LAD, distal RCA - Normal LV filling pressure and unremarkable aortic valve gradient - Grossly normal LV systolic function. Impression ICD-10-CM ICD-9-CM 1. Coronary artery disease involving dry creek coronary artery of dry creek heart without angina [id number] 414.01 2. Mixed hyperlipidemia E78.2 272.2 3. Type 1 diabetes mellitus without complication E10.9 250.01 Plan Discussed lifestyle Medications: Continue current medications with following changes restart metoprolol succinate 12.5 mg daily Diagnostic Tests: Lipid panel with direct LDL LDL goal <70 if higher discussed injectables Follow-up: Next OV in 3 mos or sooner if new or worsening cardiac symptoms documented in this encounter Plan of Treatment Upcoming Encounters Date Type Department Care Team (Late st Contact Info) Description 09/14/2024 3:00 PM CDT Office Visit [facility] Heart and Vascular - [facility] [address] [place] [phone] Marlys Mayer MD [address] [place] [address] Scheduled Orders Name Type Priority Associated Diagnoses Orde r Schedule LIPID PANEL Lab Routine Coronary artery disease involving dry creek coronary artery of dry creek heart without angina pectoris Mixed hyperlipidemia Type 1 diabetes mellitus without complication Expected: 01/20/2024, Expires: 01/19/2025 LDL CHOLESTEROL, DIRECT Lab Routine Coronary artery disease involving dry creek coronary artery of dry creek heart without angina pectoris Mixed hyperlipidemia Type 1 diabetes mellitus without complication Expected: 01/20/2024, Expires: 01/19/2025 documented as of this encounter Visit Diagnoses Diagnosis Coronary artery disease involving dry creek coronary artery of dry creek heart without angina pectoris- Primary Mixed hyperlipidemia Type 1 diabetes mellitus without complication Type I (juvenile type) diabetes mellitus without mention of complication, not stated as uncontrolled documented in this encounter Care Teams Inspecting Supervisor Relationship Specialty Start Date End Date Guerrero Middleton PA-C PCP - General Physician Monogram Technician 02/13/18 documented as of this encounter
--- OUTSIDE RECORDS SUMMARY | 2024-05-03 20:36 | XMS_ITS | Encounter Summary ---
Author Organization [facility] Address [address] [place] [address] Care Team Providers Care Pie Maker Machine Name Role Phone Guerrero Middleton PA-C Primary Care Provide r Encounter Details Date Type Department Care Team (Late st Contact Info) Description 01/01/2024 Abstract [facility] Heart and Vascular At [facility] [address] [place] [address] Marlys Mayer MD [address] [place] [address] Social History Tobacco Use Types Packs/Day Years [...] often do you attend chur ch or hoahaoism services? Never 08/21/2018 Do you belong to any clubs o r organizations such as sabianist groups, unions, fraternal or athletic groups, or [...] Description 09/14/2024 3:00 PM CDT Office Visit [facility] and Vascular - [facility] [address] [place] [phone] Marlys Mayer MD [address] [place] [address] documented as of this encounter Visit Diagnoses Not on filedocumented in this encounter Care Teams Pie Maker Machine Relationship Specialty Start Date End Date Guerrero Middleton PA-C PCP - General Physician Honey Processor 02/13/18 documented as of this encounter
--- OUTSIDE RECORDS SUMMARY | 2024-05-03 20:36 | XMS_ITS | Encounter Summary ---
Author Organization [facility] Address [address] [place] [address] Care Team Providers Care Electric Deicer Inspector Name Role Phone Guerrero Middleton PA-C Primary Care Provide r Encounter Details Date Type Department Care Team (Late st Contact Info) Description 01/07/2024 External Device Data STL ABSTRACTION Provider, Abstract [...] week 08/21/2018 How often do you attend [facility] or buddhism services? Never 08/21/2018 Do you belong to any clubs o r organizations such as worship groups, unions, fraternal or athletic groups, or [...] Description 09/14/2024 3:00 PM CDT Office Visit [facility] Heart and Vascular - [place] [address] [place] [address] Marlys Mayer MD [address] [place] [address] documented as of this encounter Visit Diagnoses Not on filedocumented in this encounter Care Teams Electric Deicer Inspector Relationship Specialty Start Date End Date Guerrero Middleton PA-C PCP - General Physician Software Consultant 02/13/18 documented as of this encounter
--- OUTSIDE RECORDS SUMMARY | 2024-05-03 20:36 | XMS_ITS | Encounter Summary ---
Author Organization [facility] Address [address] [place] [address] Care Team Providers Care Chef'S Assistant Name Role Phone Guerrero Middleton PA-C Primary Care Provide r Encounter Details Date Type Department Care Team (Late st Contact Info) Description 01/28/2024 External Device Data STL ABSTRACTION Provider, Abstract [...] week 08/21/2018 How often do you attend [facility] or jainism services? Never 08/21/2018 Do you belong to any clubs o r organizations such as sikhism groups, unions, fraternal or athletic groups, or [...] Description 09/14/2024 3:00 PM CDT Office Visit [facility] Heart and Vascular - [place] [address] [place] [address] Marlys Mayer MD [address] [place] [address] documented as of this encounter Visit Diagnoses Not on filedocumented in this encounter Care Teams Chef'S Assistant Relationship Specialty Start Date End Date Guerrero Middleton PA-C PCP - General Physician Agricultural Extension Agent 02/13/18 documented as of this encounter
--- OUTSIDE RECORDS SUMMARY | 2024-05-03 20:36 | XMS_ITS | Encounter Summary ---
Author Organization [facility] Address [address] [place] [address] Care Team Providers Care Manager Multimedia Name Role Phone Guerrero Middleton PA-C Primary Care Provide r Reason for Visit * Auth/Cert Specialty Diagnoses / Procedures Referred By Contac t Referred To Contact Cardiology Diagnoses Atherosclerotic heart disease of [place] coronary artery without angina pectoris Fatigue Syncope and collapse CAD, Fatigue, Syncope Procedures [place] CATH PLMT L HRT & ARTS W/NJX & ANGIO IMG S&I Left heart cath Dacia Lewis MD [address] [place] [address] [address] [place] [address] [facility] Certified Orthotic Fitter [address] [place] [address] Referral ID Status Reason Start Date Expiration Date Visits Re quested Visits Authorized [id number] 1 1 Encounter Details Date Type Department Care Team (Late st Contact Info) Description 11/29/2023 2:00 PM CDT - 11/29/2023 3:00 PM CDT Surgery [facility] Certified Orthotic Fitter [address] [place] [address] Dacia Lewis MD [address] [place] [address] [address] [place] [address] Left heart cath Surgery Details Date/Time Status Location OR Service Patient Class Case Class Case Type Trauma Case? 11/29/2023 2:00 PM Posted [facility] INVASIVE CARDIOLOGY [facility]H CCL 3 Interventional Cardiology Outpatient No Panel 1 Procedure LRB Anes Op Region Wound Class Comments Left heart cath N/A Percutaneous coronary intervention N/A Left Ventriculogram N/A Surgeon Surgeon Role Service Panel Dacia Lewis MD Primary Interventional Card iology 1 documented in this encounter Social History Tobacco [...] often do you attend chur ch or denominational services? Never 08/21/2018 Do you belong to any clubs o r organizations such as religion groups, unions, fraternal or athletic groups, or [...] Sign Reading Time Taken Comments Blood Pressure 98/57 11/29/2023 3:00 PM CDT Pulse 85 11/29/2023 3:00 PM CDT Temperature 36.5 ??C (97.7 ??F) 11/29/2023 10:58 AM C DT Respiratory Rate 15 11/29/2023 3:00 PM CDT Oxygen Saturation 95% 11/29/2023 3:00 PM CDT Inhaled Oxygen Concentration - - Weight 83.9 kg (185 lb) 11/29/2023 10:58 AM CDT Height 165.1 cm (5' 5 ) 11/29/2023 10:58 AM CDT Body Mass Index 30.79 11/29/2023 10:58 AM CDT documented in this encounter Discharge Summaries * Lilo Fraser NP - 11/29/2023 3:09 PM CDT Images from the original note were not included. Discharge Summary [facility] Patient: Linda Dsos : 1975 [id number]: [id number]: Date of Admission: 11/29/2023 Date of Discharge: Primary Care Physician: Guerrero Middleton PA-C Consultants: cardiology Procedures: cardiac catheterization Significant Diagnostic Studies and Labs: Lab Results Component Value Date WBC 7.5 11/26/2023 HGB 11.8 11/26/2023 HGB 11.4 (L) 09/25/2023 HCT 36.6 11/26/2023 HCT 34.5 (L) 09/25/2023 PLT 254 11/26/2023 MCV 93.1 11/26/2023 MCV 87.1 09/25/2023 Lab Results Component Value Date NA 140 11/26/2023 K 4.3 11/26/2023 KPOC 4.2 09/13/2021 CL 104 11/26/2023 CO2 28 11/26/2023 Lab Results Component Value Date CHOLTOT 470 (H) 09/19/2023 HDL 16 (L) 09/19/2023 LDLCALC 08/25/2021 Comment: Calculated LDL is not accurate when the Triglyceride value exceeds 400. LDLDIRECT 47 09/19/2023 LDLDIRECT 110 08/10/2011 TRIGLYCERIDE 859 (H) 09/22/2023 Lab Results Component Value Date CPK 205 (H) 09/14/2021 Discharge Diagnoses: CAD MEDICATIONS: Medication List CHANGE how you take these medications metFORMIN 1,000 mg tablet Commonly known as: GLUCOPHAGE What changed: additional instructions These instructions start on December 02, 2023. If you are unsure what to do until then, ask your doctor or other care provider. Take 1 Tablet (1,000 mg) by mouth 2 times daily with meals. HOLD for 48h post [facility] Start taking on: December 02, 2023 Signed by: Nurse Practitioner Carl Fraser Refills: 0 CONTINUE taking these medications aspirin 81 mg Tablet, Delayed Release (E.C.) Commonly known as: ECOTRIN EC Take 81 mg by mouth daily. Refills: 0 atorvastatin 40 mg tablet Commonly known as: LIPITOR Take 80 mg by mouth daily. Refills: 0 BUSPAR ORAL Take by mouth. Refills: 0 citalopram 40 mg tablet Commonly known as: CeleXA TAKE 1 TABLET BY MOUTH EVERY DAY Signed by: Dr. Ne Pierson Quantity: 90 Tablet Refills: 1 Creon 36,000-114,000- 180,000 unit capsule Take 2 Capsules by mouth 3 times daily with meals. Signed by: Dr. Alma Ray Quantity: 180 Capsule Refills: 0 Generic drug: onfsjo-yxxlamns-kytqfcl DR Dexcom G6 Sensor Device Change sensor every 10 days. (9 sensors = 90 days) Signed by: Dr. Chata Gates Quantity: 9 Each Refills: 1 Generic drug: Blood-Glucose Sensor Dexcom G6 Transmitter Device Change transmitter every 90 days Signed by: Dr. Chata Gates Quantity: 1 Each Refills: 1 Generic drug: Blood-Glucose Transmitter fenofibrate 160 mg Tablet Commonly known as: LOFIBRA TAKE 1 TABLET BY MOUTH EVERY DAY Signed by: Dr. Chata Gates Quantity: 90 Tablet Refills: 0 * levothyroxine 100 mcg tablet Commonly known as: Synthroid Take 1 Tablet (100 mcg) by mouth daily in the morning. Signed by: Dr. Alma Ray Quantity: 30 Tablet Refills: 0 * levothyroxine 125 mcg tablet Commonly known as: Synthroid Take 1 Tablet (125 mcg) by mouth daily in the morning. Signed by: Dr. Alma Ray Quantity: 30 Tablet Refills: 0 LORazepam 1 mg tablet Commonly known as: ATIVAN Take 1 mg by mouth every 6 hours as needed for Anxiety. Refills: 0 LOSARTAN ORAL Take by mouth. Refills: 0 metoprolol succinate 25 mg Extended Release 24 hour tablet Commonly known as: TOPROL XL Take 0.5 Tablets (12.5 mg) by mouth daily. Signed by: Dr. Alma Ray Quantity: 15 Tablet Refills: 0 ondansetron 4 mg Tablet, Rapid Dissolve Commonly known as: ZOFRAN ODT Take 1 Tablet (4 mg) by mouth every 6 hours as needed for Nausea/Emesis. Signed by: Dr. Alma Ray Quantity: 30 Tablet Refills: 0 oxyCODONE 10 mg tablet Commonly known as: ROXICODONE Take 1 Tablet (10 mg) by mouth every 6 hours. Max Daily Amount: 40 mg Signed by: Dr. Alma Ray Quantity: 20 Tablet Refills: 0 pantoprazole 40 mg Tablet, Delayed Release (E.C.) Commonly known as: PROTONIX Take 40 mg by mouth daily. Refills: 0 ticagrelor 90 mg Tablet Commonly known as: BRILINTA Take 90 mg by mouth 2 times daily. Refills: 0 traZODone 100 mg tablet Commonly known as: DESYREL Take 100 mg by mouth daily at bedtime . Refills: 0 * !!Potential duplicate medications found. Review medication list carefully. Discharge Exam: HEENT wnl S1S2 RRR. No murmur noted. LCTA. No edema 1+pp bilat R wrist negative for bleeding, bruising, or hematoma. TR band in place. Hospital Course: Linda Doss is a 48 y.o. female presented for outpatient [facility] for syncope and fatigue with previous stents 06/2023. C notable for severe mid LAD stenosis (had progressed since june) treated with TRACIE x1. Patient will remain on DAPT with ASA and Brilinta. She will remain on her chronic cardiac medications including her statin. Cardiology follow-up will be arranged. Patient instructions: Reviewed s/p cath wrist care and activity. Written copy of wrist care/ activity/ adverse signs and symptoms given to pt.. When to call office vs 911 reviewed. Pt. verbalizes understanding of all. Activity: No lifting more than 5 pounds with R arm for one week. No strenuous exercise for one month. No driving for 24 hours post-cath. Diet: Cardiac Diet. Discharge Condition: stable. Disposition: home. Follow-up will be arranged. The office is located on the second floor of the [facility], [address]. Please call [phone] if you need to change the appointment Follow- up with your primary MD, Guerrero Middleton PA-C , in 1-2 weeks or as needed. Signed: MARGARET [facility] 11/29/2023, 3:09 PM Time spent on discharge: less than 30 minutes documented in this encounter Discharge Instructions * Discharge Instructions* Lilo Fraser NP - 11/29/2023 2:49 PM CDT PATIENT INSTRUCTIONS (CARDIAC CATH RADIAL ACCESS) The medication used to sedate you will remain in your system for the next 24 hours; during this time you may feel drowsy. During the next 24 hours: Have a responsible adult drive you home and supervise you Do not drive a car or operate machinery Do not consume alcohol or sedating substances (unless prescribed by your physician) Do not make important decisions or sign legal documents INSTRUCTIONS Do NOT take Metformin-base medication for 48 hours after your procedure. Do not engage in sports, sexual intercourse, or heavy lifting (more than 10 lbs) with affected arm for 3 days. No lifting, pulling, or repetitive use with affected arm for 3 days Do not use affected arm to push up from a sitting or lying position. Do not allow blood pressure checks on (or blood sample draws from) affected arm for 24 hours. WOUND CARE: You may take a shower the morning following the procedure. Do not immerse affected arm in water for 48 hours, or until the puncture is sealed. Gently clean the site using soap and water. Do not apply any powder or lotion to the site. Keep bandage clean and dry. Change bandage daily until incision is healed. Replace the bandage if it becomes wet. DIET: Unless your physician instructed you otherwise, you may resume your normal diet when you arrive home. A small knot may develop at the site of the insertion of the catheter. If the knot becomes larger, or is painful, contact your physician. If bleeding occurs, apply pressure (with your fingers) above the site for 10 minutes. If you are unable to stop bleeding, call 911. Continue to apply pressure until EMS arrives. Have EMS transport you to the nearest emergency room. CALL YOUR PHYSICIAN IF YOU EXPERIENCE: excessive bleeding (that does not stop following direct pressure) unusual pain or discoloration of arm or fingers increased swelling of arm Decreased sensation in the arm and/or hand Signs of infection: redness; warm to touch; incision is not healing; prolonged drainage from incision; and fever or chills Return to your induction machine setter as instructed. documented in this encounter Medications at Time of Discharge Medication Sig Dispensed Refills Start Date End Date metFORMIN (GLUCOPHAGE) 1,000 mg tablet Take 1 Tablet (1,000 mg) by mouth 2 times daily with meals. HOLD for 48h post [facility] 12/02/2023 losartan potassium (LOSARTAN ORAL) Take by mouth. LORazepam (ATIVAN) 1 mg tablet Take 1 mg by mouth every 6 hours as needed for Anxiety. rzohgt-dujpfmri-fboxu se DR Wing) 36,000-114,000-180,00 0 unit capsule Take 2 Capsules by mouth 3 times daily with meals. 180 Capsule 09/26/2023 metoprolol succinate (TOPROL XL) 25 mg Extended Release 24 hour tablet Take 0.5 Tablets (12.5 mg) by mouth daily. 15 Tablet 09/27/2023 aspirin (ECOTRIN EC) 81 mg Tablet, Delayed [...] TABLET BY MOUTH EVERY DAY 90 Tablet 05/01/2021 citalopram (CeleXA) 40 mg tablet TAKE 1 TABLET BY MOUTH EVERY DAY 90 Tablet 1 11/01/2020 traZODone (DESYREL) 100 mg tablet Take 100 mg by mouth daily at bedtime . Blood-Glucose Sensor (Dexcom G7 Sensor) Device 05/13/2023 buPROPion HCL (WELLBUTRIN SR) 150 mg Sustained Release 12 hour tablet Take 1 Tablet by mouth daily. 11/13/2023 levothyroxine 200 mcg tablet Take 1 Tablet by mouth daily. 11/13/2023 buspirone HCl (BUSPAR ORAL) Take by mouth. ondansetron (ZOFRAN ODT) 4 mg Tablet, Rapid Dissolve Take 1 Tablet (4 mg) by mouth every 6 hours as needed for Nausea/Emesis. 30 Tablet 09/26/2023 oxyCODONE (ROXICODONE) 10 mg tabletIndications:Acu te on chronic pancreatitis,Other acute pancreatitis without infection or necrosis Take 1 Tablet (10 mg) by mouth every 6 hours. Max Daily Amount: 40 mg 20 Tablet 09/26/2023 levothyroxine 125 mcg tablet Take 1 Tablet (125 mcg) by mouth daily in the morning. 30 Tablet 09/26/2023 12/26/2023 levothyroxine 100 mcg tablet Take 1 Tablet (100 mcg) by mouth daily in the morning. 30 Tablet 09/26/2023 12/26/2023 Dexcom G6 Sensor Device Change sensor every 10 days. (9 sensors = 90 days) 9 Each 1 05/16/2020 12/26/2023 Dexcom G6 Transmitter Device Change transmitter every 90 days 1 Each 1 05/16/2020 12/26/2023 documented as of this encounter Progress Notes * Afua Cat RN - 11/29/2023 6:25 PM CDT Right wrist WNL. 2+ radial pulse. DC instructions given to the pt. * Afua Cat RN - 11/29/2023 3:34 PM CDT PT c/o abdominal pain 11/05. States she's worries it is her pancrease inflaming. Dr Gomez aware. No orders received. documented in this encounter H&P Notes * Dacia Lewis MD - 11/29/2023 1:39 PM CDT Certified Orthotic Fitter Pre-Procedure History and Physical Note Patient: Linda Doss / 48 y.o. / male : 1975 CSN: [id number] Today's date: 11/29/23 Planned Procedure: LHP Indications: CAD hx TRACIE june 2023. [place] hx. HENDRIX. Palpitations. Appropriate history and physical on chart? Yes Risks, benefits and options of conscious sedation discussed with patient. Previous anesthesia experiences reviewed. Informed consent obtained? yes Laboratory testing reviewed prior to case. Allergies Allergen Reactions Adhesive Tape-Silicones Hives Stephens Pepper Hives Adhesive Unknown Aspartame Headache No current facility-administered medications on file prior to encounter. Current Outpatient Medications on File Prior to Encounter Medication Sig Dispense Refill losartan potassium (LOSARTAN ORAL) Take by mouth. LORazepam (ATIVAN) 1 mg tablet Take 1 mg by mouth every 6 hours as needed for Anxiety. levothyroxine 125 mcg tablet Take 1 Tablet (125 mcg) by mouth daily in the morning. 30 Tablet [address] q[address]ruh-aaxfeowm-ozmxqhm DR [place]) 36,000-114,000-180,000 unit capsule Take 2 Capsules by mouth 3 times daily with meals. 180 Capsule 0 metoprolol succinate (TOPROL XL) 25 mg Extended Release 24 hour tablet Take 0.5 Tablets (12.5 mg) by mouth daily. 15 Tablet 0 aspirin (ECOTRIN EC) 81 mg [...] mg by mouth daily at bedtime . buspirone HCl (BUSPAR ORAL) Take by mouth. levothyroxine 100 mcg tablet Take 1 Tablet (100 mcg) by mouth daily in the morning. 30 Tablet 0 ondansetron (ZOFRAN ODT) 4 mg Tablet, Rapid Dissolve Take 1 Tablet (4 mg) by mouth every 6 hours asneeded for Nausea/Emesis. 30 Tablet 0 oxyCODONE (ROXICODONE) 10 mg tablet Take 1 Tablet (10 mg) by mouth every 6 hours. Max Daily Amount:40 mg 20 Tablet 0 metFORMIN (GLUCOPHAGE) 1,000 mg tablet TAKE 1 TABLET (1,000 MG) BY MOUTH 2 TIMES DAILY WITH MEALS. 180 Tablet 0 Dexcom G6 Sensor Device Change sensor every 10 days. (9 sensors = 90 days) 9 Each 1 Dexcom G6 Transmitter Device Change transmitter every 90 days 1 Each 1 Physical exam: BP 126/59 Pulse 92 Temp 97.7 ??F (36.5 ??C) Resp 18 Ht 5' 5 (1.651 m) Wt 83.9 kg (185 lb) SpO2 99% BMI 30.79 kg/m?? General: no distress Heart: heart sounds reg Lungs: unremarkable, unlabored breathing. Extr: vessel acceptable for safe access Airway: normal ASA classifications: 1. A normal healthy patient 2. A patient with mild systemic disease 3. A patient with severe systemic disease. Limits activity, but not incapacitating. 4. A patient with incapacitating systemic disease that is a constant threat to life. 5. A moribund patient, not expected to survive 24 hours with or without the procedure. Determined ASA Class: 3 Cleared for sedation: yes NPO status per policy: yes Plan/Recommendation: Current treatment plan is effective, no change in therapy. No contraindications to proceeding with procedure. Discussed access sites, risks, indications and procedure in detail with patient and agrees to proceed. Dacia Lewis MD Heart and Vascular Interventions [facility] documented in this encounter Procedure Notes * Dacia Lewis MD - 11/29/2023 2:29 PM CDT CARDIAC CATHETERIZATION CORONARY ANGIOGRAM PCI MID LAD TRACIE x 1 LVgram Access: R radial artery Hemostasis: compression band Indications: increasing HENDRIX/CP, hx CAD hx TRACIE OM and RCA june 2023. Mod mid LAD. [place] hx. Palpitations. AUC: Indications: New Onset Angina <= 2 months, Worsening Angina, and Suspected CAD Chest Pain Symptom Assessment: Typical Angina Cardiovascular Instability: No AUC Medications: Antiarrhythmic Agent: No Aspirin: Yes Beta Navneet: Yes Ca Channel Navneet: Yes Long Acting Nitrate: No Non-Statin: Yes Ranolazine: No Statin: Yes Stress Testing Performed Non invasive testing not performed Heart Failure: No PROCEDURE DETAILS After informed consent, prepping the patient in a sterile fashion, and administering light conscious sedation, we locally anesthetized the skin over the right radial artery and placed a 6 Scottish sheath via the modified Seldinger technique. We gave intra-arterial Verapamil and intravenous heparin. We used a 0.035 inch wire for catheter exchanges and a Haider catheter for selective angiography of the right and left coronaries independently as well as crossing the aortic valve performing left ventricular pressure assessment and aortic valve pullback. LVgram performed in PETTY with this too. There were no complications, and we used a radial compression band at the end of the case for hemostasis. Please see PCI details below. Results: Left main: no notable disease LAD: mid segment with tandem 40% and 70% shelf-like lesion (worse than June 2023 angiogram). Distal LAD with 30% calcified tubular lesion. Diagonal #1 with unchanged proximal moderate stable plaquing. LCx: large OM with long segment of stents. Distal to stents mild plaquing. RCA: dominant. Mid segment long stent that is patent. Just distal to stent is calcified segment with moderate stable plaquing. Distal branches without notable disease. LV pressure: 120/16 Aorta: 118/70 LVgram: grossly normal LV systolic function; EF 60% PCI mid LAD TRACIE x 1: 6fr EBU 3.0 guide, heparin boluses to ACT > 300, been on brilinta recently - gave todays dose and ASA 325mg given, Runthrough wire, 4.0 x 12 mm Synergy XD to 12 papa and post-dilated with 4.0 x 8 NC to 14. Good result with and without wire in multiple angles. EDUARDO 3 post-PCI flow and 0% residual stenosis. Pre-PCI EDUARDO flow was 3. SUMMARY: - Severe mid LAD severe (progressed/worse than was June 2023); PCI TRACIE x 1 today - Patent OM and RCA stents from earlier in year; unchanged stable calcified mild plaquing in diagonal, distal LAD, distal RCA - Normal LV filling pressure and unremarkable aortic valve gradient - Grossly normal LV systolic function. RECOMMENDATIONS: TR band removal per protocol I think can be discharged 6:30 PM if doing well, feeling ok. Continue Brilinta as has been on for ACS/[place] since June 2023; continue until June 2024 as planned If she still has some dyspnea symptoms, doesn't feel well after PCI today could change Brilinta to clopidogrel at some point to see if helps ASA 81mg daily indefinitely Statin and other home meds to continue Followup with Dr. Mayer in few weeks Dacia Lewis MD [facility] - Heart and Vascular Interventions ([facility]) [address] [facility] [address] [place] [address] documented in this encounter Miscellaneous Notes * Care Plan - Ligia Banks RN - 11/29/2023 3:47 PM CDT Cardiac Rehab Phase 1: Met with patient following her PCI/TRACIE to LAD. She had a recent PCI/TRACIE X2 in June ([facility] [place]). Reviewed the importance of continuing her Brilinta and Aspirin. Reviewed her Lipid profile with her. She stated that she has a history of Chronic Pancreatitis. Reviewed the importance of managing her Diabetes. The follow topics were addressed and Tap[employer]under packet/folder provided; [] [place] [x] CAD [] Heart Disease/Lifestyle Modification [] CHF [x]Discussed [facility] Cardiac Rehab Program of monitored exercise and education. Pt is [facility]. [facility] . [x] [facility] Cardiac Rehabilitation Outpatient Referral Placed Per Protocol. [x] Provided Outpatient Cardiac Rehab Location Resource sheet, Cardiac Rehab brochure. Medical records release form given to patient. Records requested include discharge summary, history/physical exams, EKG/Cardiology/Reports, and operative notes. Education initiated regarding CAD including: [x] A&P of Heart [x] PCI/Stent procedure (stent card given) [x] Risk factors [x] Medication education on Nitro, ASA, and Brillinta [x] Importance to not stop medications without first checking with doctor [x] S&S of Angina; can feel like tightness, pressure, burning, squeezing, numbness or pain in the chest and/or jaw, neck, teeth, back, shoulders, arms. Can feel like indigestion, SOB, nausea or fatigue. [x] Heart healthy diet (low cholesterol, low fat, low sodium, limit caffeine). Limit caffeine, suchas coffee, soda, energy drinks, that may increase your heart rate. [x] Importance of regular exercise. Pace yourself, alternate activity with rest periods. Walk daily at a leisurely pace for short periods of time on flat surface. If angina symptoms occur,contact MD or go to ER. (Discuss further exercise guidelines with induction machine setter during follow up appointment.) [x] Psychological aspects of heart disease (anger, depression,anxiety). Reduce stress and avoid situations that make you tense or angry. Talk with PMD for any signs of depression or anxiety. Written Information given in [facility] CAD packet: [x] [employer]: What is Angina [x] [employer]: Your Heart and How It Works [x] [employer]: How Can I Make My Lifestyle Healthier [x] Amaya: Taking Care of Your Heart at Home [x] Amaya: Angina Pectoris [x] NTG instructions (pink card) [x] [facility] Resources guide [x] AMAYA Important Note Regarding Medications and not to stop without first checking with doctor. EXTRAS: [] [employer]: Brochure: What is Coronary Bypass Surgery? [x] [employer]: What is a Stent? [] [employer]: How Can I Lower High Cholesterol [] [employer]: How Can I Cook Healthy [] [employer]: How Do I Follow a Healthy Diet [] [employer]: HF and your Ejection Fraction Explained [] [employer]: What is Atrial Fibrillation? [] [employer]: Diet and Nutrition: What about eating out? [] [employer]: Why Should I Limit My Sodium? [] [employer]: Heart Failure Medications [] [employer]: Heart Failure: Reading Food Labels to Look for Sodium [] [employer]: Salt (sodium) can be sneaky [] Amaya: Fluid Retention and Heart Failure [] Amaya: Sodium Facts [x] Amaya: You Can Quit [x] [facility] [place] brochure [] Amaya: Smoking Cessation: There are benefits to quitting smoking [] [facility]-Sexual Activity [x] Amaya: Eating with Your Heart In Mind [x] Amaya: Exercise for Life [] Amaya: Managing the Stresses of Life [] PCNA: Triglycerides: What you need to know [] PCNA: Cholesterol: What you need to know []PCNA: High Blood Pressure: What you need to know [] PCNA - Get Tough on Angina [] Krames- Manage Cholesterol the Basics [x] [employer] education sheets on Brilinta Patient was able to verbalize understanding and was able to provide teach back of basic verbal education provided today. Denies any further questions/needs at this time. Will sign off. documented in this encounter Plan of Treatment Upcoming Encounters Date Type Department Care Team (Late st Contact Info) Description 09/14/2024 3:00 PM CDT Office Visit [facility] Heart and Vascular - [facility] [address] [place] [address] Marlys Mayer MD [address] [place], [place] [id number] Scheduled Referrals Name Type Priority Associated Diagnoses Orde r Schedule AMB REFERRAL TO CARDIAC REHAB Outpatient Referral Routine Status post insertion of drug-eluting stent into left anterior descending (LAD) artery Ordered: 11/29/2023 documented as of this encounter Procedures Procedure Name Priority Date/Time Associated Diagnosis Comments EKG 12-LEAD Routine 11/29/2023 2:30 PM CDT POC ACTIVATED CLOTTING TIME Routine 11/29/2023 2:13 PM CDT LEFT VENTRICULOGRAM Routine 11/29/2023 2 :12 PM CDT Syncope, unspecified syncope type PERCUTANEOUS CORONARY INTERVENTION Routine 11/29/2023 2:12 PM CDT Syncope, unspecified syncope type LEFT HEART CATH Routine 11/29/2023 2:12 PM CDT Syncope, unspecified syncope type documented in this encounter Results * EKG 12-LEAD (11/29/2023 2:30 PM CDT) 11/29/2023 2:30 PM CDT Narrative INTERFACE SYSTEM - 11/29/2023 2:36 PM CDT ? [facility] ? [address], [place] [address] ? Test Date: ?2023-11-29 Pat Name: ? LINDA DOSS ?Department: ?? 0 ?Room: ? G005 1 Gender: ? Female ? 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 : ?1975 ? Requested By: DACIA JEANNA Valdez Order Number: [id number] ? Reading MD: ?? Fredi Grady ? Measurements Intervals ?[place] ? Rate: ? 78 ? P: ?56 WV: ? 159 ?QRS: ?55 QRSD: ? 85 ? T: ?10 QT: ? 405 ? QTc: ?461 ? Interpretive Statements SINUS RHYTHM Electronically Signed On 11-29-2023 14:36:49 CDT by Fredi Grady Procedure Note Provider, Historical - 11/29/2023 [facility] [address] , [place] [address] Test Date: 2023-11-29 Pat Name: LINDA DOSS Department: 0 Room: 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1975 Requested By: DACIA Valdez Order Number: [id number] Reading MD: Fredi Grady Measurements Intervals [place] Rate: 78 P: 56 WV: 159 QRS: 55 QRSD: 85 T: 10 QT: 405 QTc: 461 Interpretive Statements SINUS RHYTHM Electronically Signed On 11-29-2023 14:36:49 CDT by Fredi Grady Dacia Lewis MD ECG ORDERABLES Performing Organization Address [facility] Co de Phone Number INTERFACE SYSTEM Refer to clinic/hospital department * (ABNORMAL) POC ACTIVATED CLOTTING TIME (11/29/2023 2:13 PM CDT) ACTIVATED CLOTTING TIME POC 256(H) 74 - 137 sec 11/29/2023 2:13 PM CDT [facility] Comment:ACT testing performe d on ISTAT ACT-Kaolin cartridge. Blood 11/29/2023 2:13 PM CDT 11/29/2023 2:19 PM CDT Dacia Lewis MD POINT OF CARE TESTIN G Performing Organization Address [facility] Co de Phone Number [facility] CLIA# [id number] [address] [place] [address] * LEFT HEART CATH, PERCUTANEOUS CORONARY INTERVENTION, LEFT VENTRICULOGRAM (11/29/2023 2:12 PM CDT) 11/29/2023 1:15 PM CDT Narrative [facility] - 11/29/2023 2:41 PM CDT SUMMARY: - Severe mid LAD severe (progressed/worse than was June 2023); PCI TRACIE x 1 today - Patent OM and RCA stents from earlier in year; unchanged stable calcified mild plaquing in diagonal, distal LAD, distal RCA - Normal LV filling pressure and unremarkable aortic valve gradient - Grossly normal LV systolic function. RECOMMENDATIONS: TR band removal per protocol I think can be discharged 6:30 PM if doing well, feeling ok. Continue Brilinta as has been on for ACS/NY since June 2023; continue until June 2024 as planned If she still has some dyspnea symptoms, doesn't feel well after PCI today could change Brilinta to clopidogrel at some point to see if helps ASA 81mg daily indefinitely Statin and other home meds ??to continue Followup with Dr. Mayer in few weeks Dacia Lewis MD [facility] - Heart and Vascular Interventions ([place] [facility]) [facility] ([facility]) [address] [place] [address] Procedure Details CARDIAC CATHETERIZATION CORONARY ANGIOGRAM PCI MID LAD TRACIE x 1 LVgram Access: R radial artery Hemostasis: compression band Indications: increasing HENDRIX/CP, hx CAD hx TRACIE OM and RCA june 2023. Mod mid LAD. [place] hx. Palpitations. ?? AUC: Indications: New Onset Angina <= 2 months, Worsening Angina, and Suspected CAD Chest Pain Symptom Assessment: Typical Angina Cardiovascular Instability: No AUC Medications: Antiarrhythmic Agent: No Aspirin: Yes Beta Navneet: Yes Ca Channel Navneet: Yes Long Acting Nitrate: No Non-Statin: Yes Ranolazine: No Statin: Yes Stress Testing Performed Non invasive testing not performed Heart Failure: No PROCEDURE DETAILS After informed consent, prepping the patient in a sterile fashion, and administering light conscious sedation, we locally anesthetized the skin over the right radial artery and placed a 6 Scottish sheath via the modified Seldinger technique. We gave intra-arterial Verapamil and intravenous heparin. We used a 0.035 inch wire for catheter exchanges and a Haider catheter for selective angiography of the right and left coronaries independently as well as crossing the aortic valve performing left ventricular pressure assessment and aortic valve pullback. LVgram performed in PETTY with this too. There were no complications, and we used a radial compression band at the end of the case for hemostasis. Please see PCI details below. Results: Left main: no notable disease LAD: mid segment with tandem 40% and 70% shelf-like lesion (worse than June 2023 angiogram). Distal LAD with 30% calcified tubular lesion. Diagonal #1 with unchanged proximal moderate stable plaquing. LCx: large OM with long segment of stents. Distal to stents mild plaquing. RCA: dominant. Mid segment long stent that is patent. Just distal to stent is calcified segment with moderate stable plaquing. Distal branches without notable disease. LV pressure: 120/16 Aorta: 118/70 LVgram: grossly normal LV systolic function; EF 60% PCI mid LAD TRACIE x 1: 6fr EBU 3.0 guide, heparin boluses to ACT > 300, been on brilinta recently - gave todays dose and ASA 325mg given, Runthrough wire, 4.0 x 12 mm Synergy XD to 12 papa and post-dilated with 4.0 x 8 NC to 14. Good result with and without wire in multiple angles. EDUARDO 3 post-PCI flow and 0% residual stenosis. Pre-PCI EDUARDO flow was 3. Dacia Lewis MD [facility] CATH ORDERABLES [facility] CLIA #[id number] [address] [facility] [place] [address] documented in this encounter Visit Diagnoses Diagnosis Status post insertion of drug-eluting stent into left anterior descending (LAD) artery- Primary Syncope, unspecified syncope type Lightheadedness Dizziness and giddiness S/P right coronary artery (RCA) stent placement HENDRIX (dyspnea on exertion) Other dyspnea and respiratory abnormality Atherosclerosis of [place] coronary artery of [place] heart with unstable angina pectoris documented in this encounter Administered Medications Inactive Administered Medications - up to 3 most recent administrations Medication Order MAR Action Action Date Dose Rate Site acetaminophen (TYLENOL) tablet 500 mg 500 mg, Oral, EVERY 6 HOURS PRN, Starting on Sat11/29/23 at 1441, Until Sat11/29/23 at 2031, Pain, Routine fentaNYL PF (SUBLIMAZE) 50 mcg/mL injection ONE TIME PRN, Starting on Sat11/29/23 at 1335, Until Sat11/29/23 at 1417, Routine, Intra-Procedure (Invasive Cardiology) Given 11/29/2023 2:05 PM CDT 25 mcg Given 11/29/2023 1:53 PM CDT 25 mcg Given 11/29/2023 1:52 PM CDT 25 mcg heparin injection ONE TIME PRN, Starting on Sat11/29/23 at 1355, Until Sat11/29/23 at 1417, Routine, Intra-Procedure (Invasive Cardiology) Given 11/29/2023 2:16 PM CDT 2,000 Units Given 11/29/2023 1:59 PM CDT 3,000 Units Given 11/29/2023 1:55 PM CDT 3,000 Units iopamidoL (ISOVUE-300) 61% injection (drawn from multi-use bulk pack) ONE TIME PRN, Starting on Sat11/29/23 at 1415, Until Sat11/29/23 at 1417, Routine, Intra-Procedure (Invasive Cardiology) Given 11/29/2023 2:15 PM CDT 140 mL lidocaine 2 % (XYLOCAINE) injection ONE TIME PRN, Starting on Sat11/29/23 at 1352, Until Sat11/29/23 at 1417, Routine, Intra-Procedure (Invasive Cardiology) Given 11/29/2023 1:52 PM CDT 5 mL Wrist, Right midazolam (VERSED) injection ONE TIME PRN, Starting on Sat11/29/23 at 1335, Until Sat11/29/23 at 1417, Routine, Intra-Procedure (Invasive Cardiology) Given 11/29/2023 2:09 PM CDT 1 mg Given 11/29/2023 2:01 PM CDT 1 mg Given 11/29/2023 1:54 PM CDT 1 mg nitroglycerin in 5 % dextrose (TRIDIL) 100 mcg in sodium chloride 0.9% 1 mL injection ONE TIME PRN, Starting on Sat11/29/23 at 1400, Until Sat11/29/23 at 1417, Routine, Intra-Procedure (Invasive Cardiology) Given 11/29/2023 2:03 PM CDT 2 mL Given 11/29/2023 2:00 PM CDT 2 mL ondansetron (ZOFRAN) 4 mg/2 mL injection 4 mg 4 mg, IV, EVERY 6 HOURS PRN, Starting on Sat11/29/23 at 1453, Until Sat11/29/23 at 2031, Nausea/Emesis, Routine Given 11/29/2023 3:07 PM CDT 4 mg sodium chloride 0.9% infusion IV, at 30 mL/hr, PRE-PROCEDURE CONTINUOUS, Starting on Sat11/29/23 at 1100, Until Sat11/29/23 at 203, Routine, Pre-Procedure (Invasive Cardiology) New Bag 11/29/2023 1:34 PM CDT 100 mL/hr 100 mL/hr ticagrelor (BRILINTA) tablet ONE TIME PRN, Starting on Sat11/29/23 at 1414, Until Sat11/29/23 at 1417, Routine, Intra-Procedure (Invasive Cardiology) Given 11/29/2023 2:14 PM CDT 90 mg verapamiL (ISOPTIN) 5 mg SOLUTION ONE TIME PRN, Starting on Sat11/29/23 at 1354, Until Sat11/29/23 at 1417, Routine, Intra-Procedure (Invasive Cardiology) Given 11/29/2023 1:54 PM CDT documented in this encounter Active and Recently Administered Medications Times are shown in CDT. Continuous Medication Order 11/27/2023 11/28/2023 11/29/2023 sodium chloride 0.9% infusion IV, at 30 mL/hr, PRE-PROCEDURE CONTINUOUS, Starting on Sat11/29/23 at 1100, Until Sat11/29/23 at 203, Routine, Pre-Procedure (Invasive Cardiology) 1100 (Canceled Entry - Provider: Sylvie Welch RN)1334 (New Bag - Provider: Ligia Vyas RN) PRN Medication Order 11/27/2023 11/28/2023 11/29/2023 acetaminophen (TYLENOL) tablet 500 mg 500 mg, Oral, EVERY 6 HOURS PRN, Starting on Sat11/29/23 at 1441, Until Sat11/29/23 at 2031, Pain, Routine fentaNYL PF (SUBLIMAZE) 50 mcg/mL injection (CANCELED) ONE TIME PRN, Starting on Sat11/29/23 at 1335, Until Sat11/29/23 at 1417, Routine, Intra-Procedure (Invasive Cardiology) 1335 (Given - Provid er: Ligia Vyas RN)1338 (Given - Provider: Ligia Vyas RN)1352 (Given - Provider: Ligia Vyas RN)1353 (Given - Provider: Ligia Vyas RN)1405 (Given - Provider: Ligia Vyas RN) heparin injection (CANCELED) ONE TIME PRN, Starting on Sat11/29/23 at 1355, Until Sat11/29/23 at 1417, Routine, Intra-Procedure (Invasive Cardiology) 1355 (Given - Provid er: Ligia Vyas RN)1359 (Given - Provider: Ligia Vyas RN)1416 (Given - Provider: Ligia Vyas RN) iopamidoL (ISOVUE-300) 61% injection (drawn from multi-use bulk pack) (CANCELED) ONE TIME PRN, Starting on Sat11/29/23 at 1415, Until Sat11/29/23 at 1417, Routine, Intra-Procedure (Invasive Cardiology) 1415 (Given - Provid er: Dacia Lewis MD) lidocaine 2 % (XYLOCAINE) injection (CANCELED) ONE TIME PRN, Starting on Sat11/29/23 at 1352, Until Sat11/29/23 at 1417, Routine, Intra-Procedure (Invasive Cardiology) 1352 (Given - Provid er: Dacia Lewis MD) midazolam (VERSED) injection (CANCELED) ONE TIME PRN, Starting on Sat11/29/23 at 1335, Until Sat11/29/23 at 1417, Routine, Intra-Procedure (Invasive Cardiology) 1335 (Given - Provid er: Ligia Vyas RN)1338 (Given - Provider: Ligia Vyas RN)1352 (Given - Provider: Ligia Vyas RN)1354 (Given - Provider: Ligia Vyas RN)1401 (Given - Provider: Ligia Vyas RN)1409 (Given - Provider: Ligia Vyas RN) nitroglycerin in 5 % dextrose (TRIDIL) 100 mcg in sodium chloride 0.9% 1 mL injection (CANCELED) ONE TIME PRN, Starting on Sat11/29/23 at 1400, Until Sat11/29/23 at 1417, Routine, Intra-Procedure (Invasive Cardiology) 1400 (Given - Provid er: Dacia Lewis MD)1403 (Given - Provider: Dacia Lewis MD) ondansetron (ZOFRAN) 4 mg/2 mL injection 4 mg 4 mg, IV, EVERY 6 HOURS PRN, Starting on Sat11/29/23 at 1453, Until Sat11/29/23 at 2031, Nausea/Emesis, Routine 1507 (Given - Provid er: Afua Cat RN) ticagrelor (BRILINTA) tablet (CANCELED) ONE TIME PRN, Starting on Sat11/29/23 at 1414, Until Sat11/29/23 at 1417, Routine, Intra-Procedure (Invasive Cardiology) 1414 (Given - Provid er: Ligia Vyas RN) verapamiL (ISOPTIN) 5 mg SOLUTION (CANCELED) ONE TIME PRN, Starting on Sat11/29/23 at 1354, Until Sat11/29/23 at 1417, Routine, Intra-Procedure (Invasive Cardiology) 1354 (Given - Provid er: Dacia Lewis MD) documented in this encounter Care Teams Manager Multimedia Relationship Specialty Start Date End Date Guerrero Middleton PA-C PCP - General Physician Superintendent Meters 02/13/18 documented as of this encounter
--- OUTSIDE RECORDS SUMMARY | 2024-05-03 20:36 | XMS_ITS | Encounter Summary ---
Author Organization [facility] Address [address] [place] [address] Care Team Providers Care Supplier Diversity Director Name Role Phone Guerrero Middleton PA-C Primary Care Provide r Encounter Details Date Type Department Care Team (Late st Contact Info) Description 11/19/[address] [facility] [id number] [place] [address] Malrys Mayer MD [address] [place] [address] Social History Tobacco Use Types Packs/Day Years [...] often do you attend chur ch or church services? Never 08/21/2018 Do you belong to [...] Description 09/14/2024 3:00 PM CDT Office [facility] [phone] [place] [id number] Marlys Mayer MD [address] [place] [address] documented as of this encounter Visit Diagnoses Not on filedocumented in this encounter Care Teams Supplier Diversity Director Relationship Specialty Start Date End Date Guerrero Middleton PA-C PCP - General Physician Rn Iv Therapy 02/13/18 documented as of this encounter
--- OUTSIDE RECORDS SUMMARY | 2024-05-03 20:36 | XMS_ITS | Encounter Summary ---
Author Organization [facility] Address [address] [place] [address] Care Team Providers Care Pinner Printed Circuit Boards Name Role Phone Guerrero Middleton PA-C Primary Care Provide r Reason for Referral * Eval and Treat (Routine) - Closed Specialty Diagnoses / Procedures Referred By Tequila bowman Referred To Contact Cardiac Rehabilitation Diagnoses Status post insertion of drug-eluting stent into left anterior descending (LAD) artery Dacia Lewis MD [address] [place] [address] [address] [place] [address] Referral ID Status Reason Start Date Expiration Date Visits Re quested Visits Authorized [id number] Closed 11/29/2023 11/28/2024 36 36 Reason for Visit * Auth/Cert Specialty Diagnoses / Procedures Referred By Tequila bowman Referred To Contact Cardiology Diagnoses Atherosclerotic heart disease of seminole coronary artery without angina pectoris Fatigue Syncope and collapse CAD, Fatigue, Syncope Procedures AR CATH PLMT L HRT & ARTS W/NJX & ANGIO IMG S&I Left heart cath Dacia Lewis MD [address] [place] [address] [address] [place] [address] [facility] Insurance Claims Adjuster [address] [place] [phone] Referral ID Status Reason Start Date Expiration Date Visits Re quested Visits Authorized [id number] 1 1 Encounter Details Date Type Department Care Team (Latest Contact Info) Description 11/29/2023 10:42 AM CDT - 11/29/2023 6:13 PM CDT Hospital Encounter [facility] Interventional Care [address] [place] [phone] Dacia Lewis MD [address] [facility] [address] [place] [address] Syncope, unspecified syncope type Discharge Disposition: Home or Self Care Social History Tobacco Use Types Packs/Day Years [...] How often do you attend chur or jehovah's witness services? Never 08/21/2018 Do you belong to any clubs o r organizations such as latter-day groups, unions, fraternal or athletic groups, or [...] Sign Reading Time Taken Comments Blood Pressure 93/51 11/29/2023 5:30 PM CDT Pulse 90 11/29/2023 5:45 PM CDT Temperature 36.5 ??C (97.7 ??F) 11/29/2023 10:58 AM C DT Respiratory Rate 12 11/29/2023 6:00 PM CDT Oxygen Saturation 95% 11/29/2023 5:45 PM CDT Inhaled Oxygen Concentration - - Weight 83.9 kg (185 lb) 11/29/2023 10:58 AM CDT Height 165.1 cm (5' 5 ) 11/29/2023 10:58 AM CDT Body Mass Index 30.79 11/29/2023 10:58 AM CDT documented in this encounter Discharge Summaries * Lilo Fraser NP - 11/29/2023 3:09 PM CDT Images from the original note were not included. Discharge Summary [facility] Heart & Vascular Patient: Linda Mccray Robert : 1975 [id number]: [id number]: Date of Admission: 11/29/2023 Date of Discharge: [...] daily with meals. HOLD for 48h post [facility] Start taking on: December 02, 2023 [...] Quantity: 180 Capsule Refills: 0 Generic drug: ggkaxc-djhosjmw-ocwcxqn DR Dexcom G6 Sensor Device Change sensor [...] Amount: 40 mg Signed by: Dr. Alma Rya Quantity: 20 Tablet Refills: 0 pantoprazole 40 [...] a 48 y.o. female presented for outpatient [facility] for syncope and fatigue with previous stents 06/2023. LHC notable for severe mid LAD stenosis (had [...] located on the second floor of the [facility], [address]. Please call [phone] if you need to change the appointment Follow- up with your primary MD, Guerrero Middleton PA-C , in 1-2 weeks or as needed. Signed: MARGARET Kay [facility] Heart & Vascular 11/29/2023, 3:09 PM [...] and fever or chills Return to your street contractor as instructed. documented in this encounter Medications at Time of Discharge Medication Sig Dispensed Refills Start Date End Date metFORMIN (GLUCOPHAGE) 1,000 mg tablet Take 1 Tablet (1,000 mg) by mouth 2 times daily with meals. HOLD for 48h post [facility] 12/02/2023 losartan potassium (LOSARTAN ORAL) Take by mouth. LORazepam (ATIVAN) 1 mg tablet Take 1 mg by mouth every 6 hours as needed for Anxiety. ltrizn-cofjiidh-zrwqd se DR (Marcella) 36,000-114,000-180,00 0 unit capsule Take 2 Capsules [...] mouth daily at bedtime . Blood-Glucose Sensor (Vigoda G7 Sensor) Device 05/13/2023 buPROPion HCL (WELLBUTRIN [...] Lewis MD - 11/29/2023 1:39 PM CDT Insurance Claims Adjuster Pre-Procedure History and Physical Note Patient: Linda Doss / 48 y.o. / male : 1975 CSN: [id number] Today's date: 11/29/23 Planned Procedure: LHP Indications: CAD hx TRACIE june 2023. [place] hx. HENDRIX. Palpitations. Appropriate history and physical [...] daily in the morning. 30 Tablet 0 f[address]-iumnscmp-qmkamuk DR (Cremorro) 36,000-114,000-180,000 unit capsule Take 2 Capsules by [...] sensors = 90 days) 9 Each 1 Data[employer] G6 Transmitter Device Change transmitter every 90 [...] Dacia Lewis MD Heart and Vascular Interventions [facility] documented in this encounter Procedure Notes * Dacia Lewis MD - 11/29/2023 2:29 PM CDT CARDIAC CATHETERIZATION CORONARY ANGIOGRAM PCI MID LAD TRACIE x 1 LVgram Access: R radial artery Hemostasis: compression band Indications: increasing HENDRIX/CP, hx CAD hx TRACIE OM and RCA june 2023. Mod mid LAD. TX hx. Palpitations. AUC: Indications: New Onset Angina [...] right radial artery and placed a 6 Guamanian sheath via the modified Seldinger technique. We [...] Continue Brilinta as has been on for ACS/TX since June 2023; continue until June 2024 as planned If she still has some dyspnea symptoms, doesn't feel well after PCI today could change Brilinta to clopidogrel at some point to see if helps ASA 81mg daily indefinitely Statin and other home meds to continue Followup with Dr. Mayer in few weeks Dacia Lewis MD [facility] - Heart and Vascular Interventions ([place] [facility]) [address] [facility] [address] [place] [address] documented in this encounter Miscellaneous Notes * Care Plan - Ligia Banks RN - 11/29/2023 3:47 PM CDT Cardiac Rehab Phase 1: Met with patient following her PCI/TRACIE to LAD. She had a recent PCI/TRACIE X2 in June ([facility]). Reviewed the importance of continuing her Brilinta and Aspirin. Reviewed her Lipid profile with her. She stated that she has a history of Chronic Pancreatitis. Reviewed the importance of managing her Diabetes. The follow topics were addressed and [facility] packet/folder provided; [] TX [x] CAD [] Heart Disease/Lifestyle Modification [] CHF [x]Discussed [facility] Cardiac Rehab Program of monitored exercise and education. Pt is interested in attending at a [facility] location. Location preference is [facility] . [x] [facility] Cardiac Rehabilitation Outpatient Referral Placed [...] to ER. (Discuss further exercise guidelines with street contractor during follow up appointment.) [x] Psychological aspects of heart disease (anger, depression,anxiety). Reduce stress and avoid situations that make you tense or angry. Talk with PMD for any signs of depression or anxiety. Written Information given in [employer] packet: [x] [employer]: What is Angina [x] [employer]: Your Heart and How It Works [x] [employer]: How Can I Make My Lifestyle Healthier [x] Amaya: Taking Care of Your Heart at Home [x] Amaya: Angina Pectoris [x] NTG instructions (pink card) [x] Amaya Patient Resources guide [x] AMAYA Important Note Regarding Medications and not to stop without first checking with doctor. EXTRAS: [] [employer]: Brochure: What is Coronary Bypass Surgery? [x] [employer]: What is a Stent? [] [employer]: How Can I Lower High Cholesterol [] [employer]: How Can I Cook Healthy [] [employer]: How Do I Follow a Healthy Diet [] [employer]: HF and your Ejection Fraction Explained [] [employer]: What is Atrial Fibrillation? [] [employer]: Diet and Nutrition: What about eating out? [] [employer]: Why Should I Limit My Sodium? [] [employer]: Heart Failure Medications [] [employer]: Heart Failure: Reading Food Labels to Look for Sodium [] [employer]: Salt (sodium) can be sneaky [] Amaya: Fluid Retention and Heart Failure [] Amaya: Sodium Facts [x] Amaya: You Can Quit [x] [facility] [place] brochure [] Amaya: Smoking Cessation: There are benefits to quitting smoking [] [facility]ual [facility] [x] Timoy: Eating with Your Heart In Mind [x] [...] Description 09/14/2024 3:00 PM CDT Office Visit [facility] - [facility] [address] [place] [address] Marlys Mayer MD [address] [place] [address] Scheduled Referrals Name Type Priority Associated Diagnoses [...] SYSTEM - 11/29/2023 2:36 PM CDT ? [facility] ? [address], [place] [address] ? Test Date: ?2023-11-29 Pat Name: ? LINDA CRAFTOCTAVIO ?Department: ?? 0 ?Room: ? G005 1 Gender: ? Female ? Bike Shop Manager: ? : ?1975 ? Requested By: DACIA Valdez Order Number: [id number] ? Reading MD: ?? Fredi Grady ? Measurements Intervals ?[place] ? Rate: ? 78 ? P: ?56 AR: ? 159 ?QRS: ?55 QRSD: ? 85 ? T: ?10 QT: ? 405 ? QTc: ?461 ? Interpretive Statements SINUS RHYTHM Electronically Signed On 11-29-2023 14:36:49 CDT by Fredi Grady Procedure Note Provider, 11/29/2023 [facility] [address] [place] [address] Test Date: 2023-11-29 Pat Name: LINDA DOSS Department: 0 Room: [facility] 1 Gender: Female Bike Shop Manager: : 1975 Requested By: DACIA Valdez Order Number: [id number] Nato MD: Fredi Grady Measurements Intervals [place] Rate: 78 P: 56 AR: 159 QRS: 55 QRSD: 85 T: 10 QT: 405 QTc: 461 Interpretive Statements SINUS RHYTHM Electronically Signed On 11-29-2023 14:36:49 CDT by Fredi Grady Dacia Lewis MD ECG ORDERABLES Performing Organization Address [facility] Co de Phone Number INTERFACE SYSTEM Refer to clinic/hospital department * (ABNORMAL) POC ACTIVATED CLOTTING TIME (11/29/2023 2:13 PM CDT) ACTIVATED CLOTTING TIME POC 256(H) 74 - 137 sec 11/29/2023 2:13 PM CDT [facility] Comment:ACT testing performe d on ISTAT ACT-Kaolin cartridge. Blood 11/29/2023 2:13 PM CDT 11/29/2023 2:19 PM CDT Dacia Lewis MD POINT OF CARE TESTIN G Performing Organization Address [facility]/State/ZIP Co de Phone Number [facility] [id number] [address] [facility] [place] [address] * LEFT HEART CATH, PERCUTANEOUS CORONARY INTERVENTION, LEFT VENTRICULOGRAM (11/29/2023 2:12 PM CDT) 11/29/2023 1:15 PM CDT Narrative [facility] HEART AND VASCULAR - 11/29/2023 [...] Continue Brilinta as has been on for ACS/TX since June 2023; continue until June 2024 as planned If she still has some dyspnea symptoms, doesn't feel well after PCI today could change Brilinta to clopidogrel at some point to see if helps ASA 81mg daily indefinitely Statin and other home meds ??to continue Followup with Dr. Mayer in few weeks Dacia Lewis MD [facility] - Heart and Vascular Interventions ([place] [facility]) [address] [facility] [address] [place] [address] Procedure Details CARDIAC CATHETERIZATION CORONARY ANGIOGRAM PCI MID LAD TRACIE x 1 LVgram Access: R radial artery Hemostasis: compression band Indications: increasing HENDRIX/CP, hx CAD hx TRACIE OM and RCA june 2023. Mod mid LAD. TX hx. Palpitations. ?? AUC: Indications: New Onset [...] right radial artery and placed a 6 Guamanian sheath via the modified Seldinger technique. We [...] EDUARDO flow was 3. Dacia Lewis MD CUP CATH ORDERABLES [facility] HEART AND VASCULAR CLIA #[id number] [address] [facility] [place] [address] documented in this encounter Visit Diagnoses Diagnosis Status post insertion of drug-eluting stent into left anterior descending (LAD) artery- Primary Syncope, unspecified syncope type Lightheadedness Dizziness and giddiness S/P right coronary artery (RCA) stent placement HENDRIX (dyspnea on exertion) Other dyspnea and respiratory abnormality Atherosclerosis of seminole coronary artery of seminole heart with unstable angina pectoris documented in this encounter Administered Medications Inactive Administered Medications - up to 3 most recent administrations Medication Order MAR Action Action Date Dose Rate Site acetaminophen (TYLENOL) tablet 500 mg 500 mg, Oral, EVERY 6 HOURS PRN, Starting on Sat11/29/23 at 1441, Until Sat11/29/23 at 2030, Pain, Routine ondansetron (ZOFRAN) 4 mg/2 mL injection 4 mg 4 mg, IV, EVERY 6 HOURS PRN, Starting on Sat11/29/23 at 1453, Until Sat11/29/23 at 2030, Nausea/Emesis, Routine Given 11/29/2023 3:07 PM CDT 4 mg sodium chloride 0.9% infusion IV, at 30 mL/hr, PRE-PROCEDURE CONTINUOUS, Starting on Sat11/29/23 at 1100, Until Sat11/29/23 at 2030, Routine, Pre-Procedure (Invasive Cardiology) New Bag 11/29/2023 1:34 PM CDT 100 mL/hr 100 mL/hr documented in this encounter Active and Recently Administered Medications Times are shown in CDT. Continuous Medication Order 11/27/2023 11/28/2023 11/29/2023 sodium chloride 0.9% infusion IV, at 30 mL/hr, PRE-PROCEDURE CONTINUOUS, Starting on Sat11/29/23 at 1100, Until Sat11/29/23 at 2030, Routine, Pre-Procedure (Invasive Cardiology) 1100 (Canceled Entry - Provider: Sylvie Welch RN)1334 (New Bag - Provider: Ligia Vyas RN) PRN Medication Order 11/27/2023 11/28/2023 11/29/2023 acetaminophen (TYLENOL) tablet 500 mg 500 mg, Oral, EVERY 6 HOURS PRN, Starting on Sat11/29/23 at 1441, Until Sat11/29/23 at 2030, Pain, Routine fentaNYL PF (SUBLIMAZE) 50 mcg/mL [...] MD) documented in this encounter Care Teams [employer] Relationship Specialty Start Date End Date Guerrero Middleton PA-C PCP - General Physician Build And Deployment Engineer 02/13/18 documented as of this encounter
--- OUTSIDE RECORDS SUMMARY | 2024-05-03 20:36 | XMS_ITS | Encounter Summary ---
Author Organization [facility] Address [address] [place] [address] Care Team Providers Care Product Safety Engineer Name Role Phone Guerrero Middleton PA-C Primary Care Provide r Reason for Visit * Reason Onset Date Comments same day PCI follow-up 11/30/2023 Encounter Details Date Type Department Care Team (Late st Contact Info) Description 11/30/2023 Telephone [facility] Heart and Vascular At [place] [address] [place] [address] [place] [address] [place] [phone] same day PCI follow-up Social History Tobacco Use Types Packs/Day Years [...] often do you attend chur ch or adventism services? Never 08/21/2018 Do you belong to any clubs o r organizations such as congregational groups, unions, fraternal or athletic groups, or [...] encounter Miscellaneous Notes * Telephone Encounter - Lilo Fraser NP - 11/30/2023 12:26 PM CDT Cardiac Catheterization Discharge Follow Up Called the patient to discuss post procedure progress and to ensure safety. The patient is feeling well. Denies chest pain, dyspnea, heart racing, bleeding from access site, or any new neurologic symptoms. The patient will continue on her [employer] brilinta for P2Y12 inhibitor and is taking that and aspirin asprescribed. The patient has a follow up appointment scheduled on 12/26/2023 a 1030 documented in this encounter Plan of Treatment Upcoming Encounters Date Type Department Care Team (Late st Contact Info) Description 09/14/2024 3:00 PM CDT Office [facility] [address] [place] [phone] Marlys Mayer MD [address] [place] [address] documented as of this encounter Visit Diagnoses Not on filedocumented in this encounter Care Teams Product Safety Engineer Relationship Specialty Start Date End Date Guerrero Middleton PA-C PCP - General Physician Bleach Boiler Packer 02/13/18 documented as of this encounter
--- OUTSIDE RECORDS SUMMARY | 2024-05-03 20:36 | XMS_ITS | Encounter Summary ---
Author Organization [facility] Address [address] [place] [address] Care Team Providers Care Community Theater Actor Name Role Phone Guerrero Middleton PA-C Primary Care Provide r Encounter Details Date Type Department Care Team (Late st Contact Info) Description 04/14/2024 Abstract [facility] Heart and Vascular At [facility] [address] [facility] [address] [place] [address] Marlys Mayer MD [address] [facility] [address] [place] [address] Social History Tobacco Use Types [...] often do you attend chur ch or sabianism services? Never 08/21/2018 Do you belong to any clubs o r organizations such as synagogue groups, unions, fraternal or athletic groups, or [...] Description 09/14/2024 3:00 PM CDT Office Visit [facility] [address] [place] [phone] Marlys Mayer MD [address] [place] [address] documented as of this encounter Visit Diagnoses Not on filedocumented in this encounter Care Teams Community Theater Actor Relationship Specialty Start Date End Date Guerrero Middleton PA-C PCP - General Physician Account Support Analyst 02/13/18 documented as of this encounter
--- OUTSIDE RECORDS SUMMARY | 2024-05-03 20:36 | XMS_ITS | Encounter Summary ---
Author Organization [facility] Address [address] [place] [address] Care Team Providers Care Box Car Washer Name Role Phone Guerrero Middleton PA-C Primary Care Provide r Encounter Details Date Type Department Care Team (Late st Contact Info) Description 11/26/2023 External Device Data STL ABSTRACTION Provider, Abstract [...] week 08/21/2018 How often do you attend [facility] or restorationism services? Never 08/21/2018 Do you belong to any clubs o r organizations such as evangelical groups, unions, fraternal or athletic groups, or [...] Office Visit [facility] Heart and Vascular - [place] [address] [place] [address] Marlys Mayer MD [address] [place] [address] documented as of this encounter Visit Diagnoses Not on filedocumented in this encounter Care Teams Box Car Washer Relationship Specialty Start Date End Date Guerrero Middleton PA-C PCP - General Physician Pen Or Pencil Assembly Machine Operator 02/13/18 documented as of this encounter
--- OUTSIDE RECORDS SUMMARY | 2024-05-03 20:36 | XMS_ITS | Encounter Summary ---
Author Organization [facility] Address [address] [place] [address] Care Team Providers Care Silver Plater Name Role Phone Guerrero Middleton PA-C Primary Care Provide r Encounter Details Date Type Department Care Team (Late st Contact Info) Description 2023 Prep for Surgery [facility] Heart and Vascular At [address] [place] [address] Miguel Lewis MD [address] [place] [address] [address] [place] [address] Syncope, unspecified syncope type (Primary Dx) Social History Tobacco Use Types Packs/Day Years [...] Description 09/14/2024 3:00 PM CDT Office Visit [facility] Heart and Vascular - [facility] [address] [place] [address] Marlys Mayer MD [address] [place] [address] documented as of this encounter Visit Diagnoses Diagnosis Syncope, unspecified syncope type- Primary documented in this encounter Care Teams Silver Plater Relationship Specialty Start Date End Date Guerrero Middleton PA-C PCP - General Physician Production Counter 02/13/18 documented as of this encounter
--- OUTSIDE RECORDS SUMMARY | 2024-05-03 20:36 | XMS_ITS | Encounter Summary ---
Author Organization [facility] Address [address] [place] [address] Care Team Providers Care Industrial Photographer Name Role Phone Guerrero Middleton PA-C Primary Care Provide r Encounter Details Date Type Department Care Team (Late st Contact Info) Description 04/21/2024 External Device Data STL ABSTRACTION Provider, Abstract [...] week 08/21/2018 How often do you attend [facility] or restorationism services? Never 08/21/2018 Do you belong to any clubs o r organizations such as mandaen groups, unions, fraternal or athletic groups, or [...] Description 09/14/2024 3:00 PM CDT Office Visit [facility] Heart and Vascular - [place] [address] [place] [address] Marlys Mayer MD [address] [place] [address] documented as of this encounter Visit Diagnoses Not on filedocumented in this encounter Care Teams Industrial Photographer Relationship Specialty Start Date End Date Guerrero Middleton PA-C PCP - General Physician Grape Cutter 02/13/18 documented as of this encounter
--- OUTSIDE RECORDS SUMMARY | 2024-05-03 20:36 | XMS_ITS | Encounter Summary ---
Author Organization [facility] Address [address] [place] [address] Care Team Providers Care Foundry Helper Name Role Phone Guerrero Middleton PA-C Primary Care Provide r Reason for Visit * Reason Onset Date Comments results 12/25/2023 Encounter Details Date Type Department Care Team (Late st Contact Info) Description 12/25/2023 Telephone [facility] Heart and Vascular At [facility] [address] [facility] [address] [place] [phone] Marlys Mayer MD [address] [place] [address] [address] [place] [address] results Social History Tobacco Use Types Packs/Day Years [...] How often do you attend chur or latter-day services? Never 08/21/2018 Do you belong to [...] Telephone Encounter - Angie Blackburn RN - 12/25/2023 8:46 AM CDT Pt notified aravindter results via [employer]. Patient has OV tomorrow 12/25 with ANNA Lynch. FINDINGS The patient was enrolled from 11/18/2023 [...] 150 per minute. No arrhythmias were noted. * Telephone Encounter - Angie Blackburn RN - 12/25/2023 8:46 AM CDT ----- Message from Nurse Angie Blackburn sent at 12/24/2023 9:23 AM CDT ----- [facility] documented in this encounter Plan of Treatment Upcoming Encounters Date Type Department Care Team (Late st Contact Info) Description 09/14/2024 3:00 PM CDT Office Visit [facility] [address] [place] [address] Marlsy Mayer MD [address] [place] [address] documented as of this encounter Visit Diagnoses Not on filedocumented in this encounter Care Teams Foundry Helper Relationship Specialty Start Date End Date Guerrreo Middleton PA-C PCP - General Physician Juvenile Court Judge 02/13/18 documented as of this encounter
--- OUTSIDE RECORDS SUMMARY | 2024-05-03 20:36 | XMS_ITS | Encounter Summary ---
Author Organization [facility] Address 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 Type 1 diabetes mellitus without complication Palpitations Syncope, unspecified syncope type Procedures MOBILE CARDIAC OUTPATIENT TELEMETRY Marlys Mayer MD [address] [place] [address] Referral ID Status Reason Start Date Expiration Date V isits Requested Visits Authorized [id number] Pending Review 11/18/2023 12/18/2024 1 1 Encounter Details Date Type Department Care Team (Latest Contact Info) Description 11/18/2023 2:45 PM CDT - 11/18/2023 11:59 PM CDT Hospital Encounter [facility] Diagnostic Cardiology Services Elinsayra R[address]in [id number] [place] [address] Marlys Mayer MD [address] [place] [address] Discharge Disposition: Home or Self Care Social [...] often do you attend chur ch or yazidi services? Never 08/21/2018 Do you belong to any clubs o r organizations such as druze groups, unions, fraternal or athletic groups, or [...] Sig Dispensed Refills Start Date End Date Blood-Glucose Sensor (Dexcom G7 Sensor) Device 05/13/2023 buPROPion HCL (WELLBUTRIN SR) 150 mg Sustained Release 12 hour tablet Take 1 Tablet by mouth daily. 11/13/2023 levothyroxine 200 mcg tablet Take 1 Tablet by mouth daily. 11/13/2023 losartan potassium (LOSARTAN ORAL) Take by mouth. buspirone HCl (BUSPAR ORAL) Take by mouth. LORazepam (ATIVAN) 1 mg tablet Take 1 mg by mouth every 6 hours as needed for Anxiety. ondansetron (ZOFRAN ODT) 4 mg Tablet, Rapid Dissolve Take 1 Tablet (4 mg) by mouth every 6 hours as needed for Nausea/Emesis. 30 Tablet 09/26/2023 hbjlxh-puazcnte-lcldd se DR (Marcella) 36,000-114,000-180,00 0 unit capsule Take 2 Capsules by mouth 3 times daily with meals. 180 Capsule 09/26/2023 metoprolol succinate (TOPROL XL) 25 mg Extended Release 24 hour tablet Take 0.5 Tablets (12.5 mg) by mouth daily. 15 Tablet 09/27/2023 oxyCODONE (ROXICODONE) 10 mg tabletIndications:Acu te on chronic pancreatitis,Other acute pancreatitis without infection or necrosis Take 1 Tablet (10 mg) by mouth every 6 hours. Max Daily Amount: 40 mg 20 Tablet 09/26/2023 aspirin (ECOTRIN EC) 81 mg Tablet, Delayed [...] mg by mouth daily at bedtime . levothyroxine 100 mcg tablet Take 1 Tablet (100 mcg) by mouth daily in the morning. 30 Tablet 09/26/2023 12/26/2023 levothyroxine 125 mcg tablet Take 1 Tablet (125 mcg) by mouth daily in the morning. 30 Tablet 09/26/2023 12/26/2023 metFORMIN (GLUCOPHAGE) 1,000 mg tablet TAKE 1 TABLET (1,000 MG) BY MOUTH 2 TIMES DAILY WITH MEALS. 180 Tablet 05/01/2021 11/29/2023 Dexcom G6 Sensor Device Change sensor every 10 days. (9 sensors = 90 days) 9 Each 1 05/16/2020 12/26/2023 Dexcom G6 Transmitter Device Change transmitter every 90 days 1 Each 1 05/16/2020 12/26/2023 documented as of this encounter Plan of Treatment Upcoming Encounters Date Type Department Care Team (Late st Contact Info) Description 09/14/2024 3:00 PM CDT Office Visit [facility] Heart and Vascular - 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 DIAGNOSIS Syncope and collapse. FINDINGS The patient was enrolled from 11/18/2023 to 12/09/2023 with a totalmonitored time of 15 days, 11 hours, 52 minutes. The primary rhythm was sinus rhythm with heart rate ranging from 61 to 150beats per minute with an average heart rate of 90 beats per minute. No atrial fibrillation was noted. No PACs were noted on the monitor. No SVT seen. No PVCs were seen on the monitor. No ventricular tachycardia noted. No pauses or conduction abnormalities were seen. There were 6 patient-triggered events and 12 autotriggered events. Thepatient-triggered events were for symptom other than listed, dizziness,and lightheadedness. These all revealed sinus tachycardia with heartrates ranging from 103 to 125 beats per minute. No arrhythmias noted. The autotriggered events showed sinus rhythm to sinus tachycardia, thefastest heart rate was 150 per minute. No arrhythmias were noted. RPF:MEDQ DID:[id number] Dictated by: Miguel Thomas MD, [facility] CC: Marlys Mayer MD Marlys Mayer MD CARDIAC SERVICES ORD ERABLES [facility] CLIA# [id number] [address] [place] [address], [address] [place] [address] documented in this encounter Visit Diagnoses Not on filedocumented in this encounter Care Teams Field Assessor Relationship Specialty Start Date End Date Guerrero Middleton PA-C PCP - General Physician Cutter And Edge Trimmer 02/13/18 documented as of this encounter
--- OUTSIDE RECORDS SUMMARY | 2024-05-03 20:36 | XMS_ITS | Encounter Summary ---
Author Organization [facility] Address [address] [place] [address] Care Team Providers Care Coat Check Attendant Name Role Phone Guerrero Middleton PA-C Primary Care Provide r Reason for Visit * Reason Onset Date Comments Medication Question 03/23/2024 Encounter Details Date Type Department Care Team (Late st Contact Info) Description 03/23/2024 Telephone [facility] Heart and Vascular At [facility] [address] [place] [address] Marlys Mayer MD [address] [place] [address] [address] [place] [address] Medication Question Social History Tobacco Use Types Packs/Day Years [...] often do you attend chur ch or holiness services? Never 08/21/2018 Do you belong to any clubs o r organizations such as baptist groups, unions, fraternal or athletic groups, or [...] Telephone Encounter - Angie Blackburn RN - 03/25/2024 1:17 PM CST Images from the original note were not included. Spoke with patient, pt verb understanding. Tita Kahn, Angie Enriquez, RN Caller: Unspecified (2 days ago, 9:49 AM) Unfortunately Celebrex is contraindicated in pts with hx of [place]/ CAD. It increases your risk of [place]. I recommend speaking with your restaurant busser for other pain relieving options. WEB APPLICATION DEVELOPER * Telephone Encounter - Angie Blackburn RN - 03/25/2024 11:04 AM LEAD WEB APPLICATION DEVELOPER Spoke to patient regarding Celebrex. Patient has torn rotator cuff and orthopedist would like to try Celebrex instead of ibuprofen and tylenol, for pain and inflammation Ortho wants to confirm if this medication is ok to take due to warning for patient with heart issues. PCP says she should probably not take this medication. Pt has hx of CAD, with most recent cath in November 2023,stent placed. WEB APPLICATION DEVELOPER * Telephone Encounter - Lacey Brito - 03/23/2024 9:46 AM CST Patient called stated her PCP trying to wing her off Ibuprofen and Tylenol and wanted to prescribe Clebrex. Please give patient a call back at [phone]. WEB APPLICATION DEVELOPER documented in this encounter Plan of Treatment Upcoming Encounters Date Type Department Care Team (Late st Contact Info) Description 09/14/2024 3:00 PM CDT Office Visit [facility] Heart and Vascular - [place] [address] [place] [address] Marlys Mayer MD [address] [place] [address] documented as of this encounter Visit Diagnoses Not on filedocumented in this encounter Care Teams Coat Check Attendant Relationship Specialty Start Date End Date Guerrero Middleton PA-C PCP - General Physician Shell Sieve Operator 02/13/18 documented as of this encounter
--- OUTSIDE RECORDS SUMMARY | 2024-05-03 20:36 | XMS_ITS | Clinical Summary ---
Author Organization [facility] Address [address] [place] [address] Phone Care Team Providers Care Liquid Chlorine Operator Name Role Phone Guerrero Middleton PA-C Primary Care Provide r Allergies Active Allergy Reactions Criticality Noted Date Comments Adhesive Unknown 03/07/2018 Adhesive Tape-Silicones Hives High 02/10/2018 Aspartame Headache Low 05/16/2018 Stephens Pepper Hives High 02/10/2018 Medications Medication Sig Dispensed Refills Start Date End Date Status traZODone (DESYREL) 100 mg tablet Take 100 mg by mouth daily at bedtime . Active citalopram (CeleXA) 40 mg tablet TAKE 1 TABLET BY MOUTH EVERY DAY 90 Tablet 1 11/01/2020 Active fenofibrate (LOFIBRA) 160 mg Tablet TAKE 1 TABLET BY MOUTH EVERY DAY 90 Tablet 05/01/2021 Active pantoprazole (PROTONIX) 40 mg Tablet, Delayed Release (E.C.) Take 40 mg by mouth daily. Active atorvastatin (LIPITOR) 40 mg tablet Take 80 mg by mouth daily. Active aspirin (ECOTRIN EC) 81 mg Tablet, Delayed Release (E.C.) Take 81 mg by mouth daily. Active ticagrelor (BRILINTA) 90 mg Tablet Take 90 mg by mouth 2 times daily. Active ondansetron (ZOFRAN ODT) 4 mg Tablet, Rapid Dissolve Take 1 Tablet (4 mg) by mouth every 6 hours as needed for Nausea/Emesis. 30 Tablet 09/26/2023 Active isuvhh-fplbfoec-kb ylase DR Wing) 36,000-114,000-180 ,000 unit capsule Take 2 Capsules by mouth 3 times daily with meals. 180 Capsule 09/26/2023 Active metoprolol succinate (TOPROL XL) 25 mg Extended Release 24 hour tablet Take 0.5 Tablets (12.5 mg) by mouth daily. 15 Tablet 09/27/2023 Active oxyCODONE (ROXICODONE) 10 mg tabletIndications: Acute on chronic pancreatitis,Other acute pancreatitis without infection or necrosis Take 1 Tablet (10 mg) by mouth every 6 hours. Max Daily Amount: 40 mg 20 Tablet 09/26/2023 Active losartan potassium (LOSARTAN ORAL) Take by mouth. Activ e buspirone HCl (BUSPAR ORAL) Take by mouth. Active LORazepam (ATIVAN) 1 mg tablet Take 1 mg by mouth every 6 hours as needed for Anxiety. Active metFORMIN (GLUCOPHAGE) 1,000 mg tablet Take 1 Tablet (1,000 mg) by mouth 2 times daily with meals. HOLD for 48h post C 12/02/2023 Active Blood-Glucose Sensor (Dexcom G7 Sensor) Device 05/13/2023 Active buPROPion HCL (WELLBUTRIN SR) 150 mg Sustained Release 12 hour tablet Take 1 Tablet by mouth daily. 11/13/2023 Active NovoLOG U-100 Insulin aspart 100 unit/mL vial INFUSE 100 UNITS VIA CONTINUOUS SUBCUTANEOUS INFUSION DAILY WITH A MAX DAILY DOSE OF 100 UNITS Active BD Insulin Syringe Ultra-Fine 0.3 mL 31 gauge x 5/16 Syringe 12/24/2023 Active levothyroxine 200 mcg tablet Take 1 Tablet by mouth daily. 11/13/2023 Active docusate sodium (COLACE) 100 mg capsule TAKE 1 CAPSULE BY MOUTH EVERY 12 HOURS NEEDED FOR CONSTIPATION 04/08/2024 Active metoclopramide HCl (REGLAN) 5 mg tablet take 1 tablet by mouth every 6 hours as needed for nausea and vomiting 04/08/2024 Active Active Problems Patient Care Coordination No te Formatting of this note migh t be different from the original. Marlys Mayer MD--[employer] ([facility] @ ) Problem Noted Date Diagnosed Date Syncope and collapse 09/19/2023 Atherosclerosis of coronary artery 09/19/2023 Severe episode of recurrent major depressive disorder, without psychotic features 09/17/2021 Allergic reaction caused by a drug 08/24/2021 Precordial pain 08/24/2021 Moderate protein-calorie malnutrition 02/22/2020 Acute pancreatitis 02/15/2020 Acute on chronic pancreatitis 04/12/2019 Left upper quadrant pain 10/28/2018 Acquired hypothyroidism 10/28/2018 Recurrent pancreatitis 10/28/2018 Hyponatremia 03/08/2018 GERD (gastroesophageal reflux disease) 8 Tobacco use 03/07/2018 Type 2 diabetes mellitus wit hout complication, with long-term current use of insulin 03/07/2018 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 Hypertriglyceridemia 12/04/2017 Depression with anxiety 12/04/2017 Hypothyroidism 12/21/2011 Metabolic syndrome 05/15/2011 History of gestational diabetes 05/15/2011 Family history of diabetes mellitus 05/15/2011 Family history of early CAD 05/15/2011 PCOS (polycystic ovarian syndrome) 05/15/2011 Abdominal pain History of plasmapheresis Mixed hyperlipidemia History of pancreatitis Suicide ideation Diabetes mellitus type I Resolved Problems Problem Noted Date Diagnosed Date Resolved Date Upper abdominal pain, unspecified 08/10/2020 08/14/2020 Other acute pancreatitis wit h uninfected necrosis 04/11/2018 05/16/2018 Epigastric abdominal pain 03/08/2018 Epigastric abdominal pain 12/04/2017 Nausea vomiting and diarrhea 12/04/2017 07/03/2022 Type 2 diabetes mellitus wit hout complication, with long-term current use of insulin 12/04/2017 05/16/2018 Acquired hypothyroidism 12/04/201704/29 Hypernatremia 05/16/2018 Uncontrolled type 2 diabetes mellitus with hyperglycemia 07/03/2022 Chronic pancreatitis 023 Encounters Date Type Department Care Team Description 04/21/2024 External Device Data STL ABSTRACTION Provider, Abstract 04/20/2024 3:00 PM PALLET REPAIRER Office [facility] [address] [place] [address] Marlys Mayer MD Coronary artery disease involving [place]choopda coronary artery of [place] heart without angina pectoris (Primary Dx); Type 1 diabetes mellitus without complication; Chylomicronemia syndrome; Chronic recurrent pancreatitis 04/14/[address] [facility] Heart and Vascular At [place] [address] [place] [address] Marlys Mayer MD 03/23/[address] [facility] Heart and Vascular At [facility] [address] [place] [address] Marlys Mayer MD Medication Question from Last 3 Months Immunizations Name Administration Dates Next Due INFLUENZA VACCINE QUADRIVALE NT 6 MOS UP PF IM 02/19/2020,02/02/2019,02/12/2018 Influenza Seasonal Unspecifi ed Formulation IM 02/08/2018 Pneumococcal conjugate, unsp ecified formulation 05/09/2016 Family History Medical History Relation Name Comments Diabetes Father High Cholesterol Father Hypertension Father Diabetes Maternal Grandmother Heart Disease Maternal Grandmother Diabetes Mother Heart Disease Mother High Cholesterol Mother Stroke Mother Thyroid Disease Mother Diabetes Paternal Grandmother Relation Name Status Comments Father Maternal Grandmother Mother Alive Paternal Grandmother Social History Tobacco Use Types Packs/Day Years [...] How often do you attend chur or baptist services? Never 08/21/2018 Do you belong to any clubs o r organizations such as holiness groups, unions, fraternal or athletic groups, or [...] Comments Blood Pressure 112/70 04/20/2024 3:12 PM PALLET REPAIRER Pulse 103 04/20/2024 3:12 PM PALLET REPAIRER Temperature 36.5 ??C (97.7 ??F) 11/29/2023 10:58 AM C DT Respiratory Rate 21 11/29/2023 6:15 PM CDT Oxygen Saturation 96% 04/20/2024 3:12 PM PALLET REPAIRER Inhaled Oxygen Concentration - - Weight 86.6 kg (191 lb) 04/20/2024 3:12 PM PALLET REPAIRER Height 165.1 cm (5' 5 ) 04/20/2024 3:12 PM PALLET REPAIRER Body Mass Index 31.78 04/20/2024 3:12 PM PALLET REPAIRER Plan of Treatment Upcoming Encounters Date Type Department Care Team (Late st Contact Info) Description 09/14/2024 3:00 PM CDT Office [facility] [address] [place] [address] Marlys Mayer MD [address] [place] [address] Health Maintenance Due Date Last Done Comments PNEUMOCOCCAL VACCINE 0-64 YE ARS (1 of 2 - PCV) 11/24/1981 05/09/2016 DIABETES ANNUAL RETINAL EXAM 11/24/1993 DIABETES MICROALBUMIN ANNUAL SCREEN 11/24/1993 FIT/ DNA Q 3 YEARS (AUTO ORDER) 11/24/1993 FIT/FOBT Q 1 YEAR (AUTO ORDER) 11/24/1993 FLEX SIG/CT COLONOGRAPHY Q 5 YEARS (AUTO ORDER) 11/24/1993 DTAP/TDAP/TD VACCINES (1 - Tdap) 11/24/1994 HEPATITIS B VACCINES (1 of 3 - 19+ 3-dose series) 11/24/1994 CERVICAL CANCER SCREENING 11/24/2005 BREAST CANCER SCREENING 2015 COLORECTAL CANCER SCREENING (AUTO ORDER) 11/24/2020 COLORECTAL SCREENING 11/24/2020 Colorectal Cancer Screening (AUTO ORDER) 11/24/2020 Colorectal Cancer Screening 11/24/2020 FIT-DNA Q 3 years 11/24/2020 FIT/FOBT Q 1 year 11/24/2020 Flex Sig/CT Colonography Q 5 years 11/24/2020 DIABETES ANNUAL FOOT EXAM 05/04/2021 05/04/2020 INFLUENZA VACCINE (#1) 2023 0, 02/02/2019, 02/12/2018, Additional history exists DIABETES HBA1C Q 6 MONTHS 03/20/20242023, 08/24/2021, 07/12/2020, Additional history exists [place] Ad[place] ([place] Preventative Visit/Annual Wellness Visit 04/29/2024 LDL CHOLESTEROL ANNUAL 09/18/2024 4, 08/25/2021, 02/01/2019, Additional history exists Medical Devices Implanted Type Area Conventional Mortgage Underwriter Device Identifier Shelf Expiration Date Model / Serial / Lot Cath Hemodlys Glidespath 23cm [id number] Implanted:Qty : 1 on 04/10/2018 by Kayla Sheffield MD Catheter CR BARD[employer] [id number] 08/27/2019 [id number] / / [id number] Description:14.5fr x 23cm; R IJ Port-10/29/2018 Implanted:Qty : 2 on 10/29/2018 by Laverne Willoughby MD Explanted:Qty : 1 on 02/18/2019 by Michael Powell MD Port Right: Chest Wall CR BARD- ACCESS SYS 07/28/2019 / / [id number] Description:two 9.6fr fower flow apheresis ports placed by Dr. Willoughby Port- 0 Implanted:Qty : 1 on 05/11/2019 by Alfa Forrest MD Port Left: Chest Wall CR [employer]ARD- ACCESS SYS 08/26/2020 / / [id number] Stent Synergy Xd 4.0x12mm Evrlms Elut [id number] - [id number] Implanted:Qty : 1 on 11/29/2023 by Miguel Lewis MD at [facility] Stent N/A: Coronary [employer] GRISELDA [id number] 03/19/2024 [id number] / / [id number] Procedures Procedure Name Priority Date/Time Associated Diagnosis Comments LDL CHOLESTEROL, DIRECT Stat 09/19/2023 12:59 AM CDT HEMOGLOBIN A1C Routine 09/18/2023 10:18 PM CDT from Last 3 Months or Most Recently Relevant to Health Maintenance Results * LDL CHOLESTEROL, DIRECT (09/19/2023 12:59 AM CDT) LDL CHOLESTEROL, DIRECT 47 <100 mg/dL 09/19/2023 5:52 AM CDT [facility] Blood Venipuncture / Unknown 09/19/2023 12:59 AM CDT 09/19/2023 1:09 AM CDT [facility] [employer] [facility] - 09/19/2023 5:52 AM CDT LDL CHOLESTEROL mg/dL ??LDL <70, OPTIMAL if have Atherosclerotic cardiovascular disease (ASCVD) ??or intermediate or higher (>7.5%) 10 year risk of ASCVD including most adults ??with diabetes. ??LDL <100, Optimal in adult patients with low (<7.5%) 10 year ASCVD risk ??LDL 100-160, Suboptimal ??LDL >160, High ??LDL >190, Very high Based on AHA/NCEP guidelines Yojana Washington MD CHEMISTRY ORDERA BLES Performing Organization Address [facility] Co de Phone Number [facility] [employer] [facility]# [id number] [address] [place] [address] * (ABNORMAL) HEMOGLOBIN A1C (09/18/2023 10:18 PM CDT) [facility] HEMOGLOBIN A1C 9.7(H) <5.7 % 09/19/2023 10:59 AM CDT [facility] [employer] [facility] EST. AVG GLUCOSE, A1C 232 mg/dL 09/19/2023 10:59 AM T [facility] [employer] [facility] Blood Venipuncture / Unknown 09/18/2023 10:18 PM CDT 09/18/2023 10:26 PM CDT [facility] - 09/19/2023 10:59 AM CDT HGB A1C INTERPRETATION NORMAL: ? <5.7% PRE-DIABETES: 5.7 - 6.4% DIABETES: ? 6.5% OR GREATER Herlinda Mederos DO CHEMISTRY ORDERABLES Performing Organization Address [facility] Co de Phone Number [facility] [employer] [facility]# [id number] [address] [place] [address] from Last 3 Months or Most Recently Relevant to Health Maintenance Advance Directives For more information, please contact: [phone] * Full Code (Latest Code Status on File) Date Activated Date Inactivated Comments 11/29/2023 10:46 AM 11/29/2023 8:31 PM * Full Code Date Activated Date Inactivated Comments 09/19/2023 8:02 AM 09/26/2023 8:45 PM * Full Code Date Activated Date Inactivated Comments 09/13/2021 11:45 PM 09/20/2021 8:57 PM * Full Code Date Activated Date Inactivated Comments 08/24/2021 3:04 PM 08/26/2021 4:03 PM * Full Code Date Activated Date Inactivated Comments 12/27/2020 12:11 AM 01/02/2021 4:26 PM Care Teams Liquid Chlorine Operator Relationship Specialty Start Date End Date Guerrero Middleton PA-C PCP - General Physician Dynamic Etching Processor 02/13/18
--- OUTSIDE RECORDS SUMMARY | 2024-05-03 20:36 | XMS_ITS | Encounter Summary ---
Author Organization [facility] Address [address] [place] [address] Care Team Providers Care Back Sewer Name Role Phone Guerrero Middleton PA-C Primary Care Provide r Reason for Visit * Reason Onset Date Comments heart cath 11/20/2023 Encounter Details Date Type Department Care Team (Late st Contact Info) Description 11/20/2023 Telephone [facility] and V[facility] At [facility] [address] [place] [id number] Marlys Mayer MD [address] [place] [address] [address] [place] [address] heart cath Social History Tobacco Use Types Packs/Day [...] often do you attend chur ch or druze services? Never 08/21/2018 Do you belong to [...] Telephone Encounter - Angie Blackburn RN - 11/20/2023 10:04 AM CDT Pc to patient to schedule C. Lmom with direct Cb number. documented in this encounter Plan of Treatment Upcoming Encounters Date Type Department Care Team (Late st Contact Info) Description 09/14/2024 3:00 PM CDT Office [facility] [address] [place] [address] Marlys Mayer MD [address] [place] [address] documented as of this encounter Visit Diagnoses Not on filedocumented in this encounter Care Teams Back Sewer Relationship Specialty Start Date End Date Guerrero Middleton PA-C PCP - General Physician Principal Scientist 02/13/18 documented as of this encounter
--- OUTSIDE RECORDS SUMMARY | 2024-05-03 20:36 | XMS_ITS | Encounter Summary ---
Author Organization [facility] Address [address] [place] [address] Care Team Providers Care Belling Machine Operator Name Role Phone Guerrero Middleton PA-C Primary Care Provide r Encounter Details Date Type Department Care Team (Late st Contact Info) Description 01/21/2024 External Device Data STL ABSTRACTION Provider, Abstract [...] week 08/21/2018 How often do you attend [facility] or lutheran services? Never 08/21/2018 Do you belong to [...] Description 09/14/2024 3:00 PM CDT Office Visit [facility] Heart and Vascular - [place] [address] [place] [address] Marlys Mayer MD [address] [place] [address] documented as of this encounter Visit Diagnoses Not on filedocumented in this encounter Care Teams Belling Machine Operator Relationship Specialty Start Date End Date Guerrero Middleton PA-C PCP - General Physician Kelp Gatherer 02/13/18 documented as of this encounter
--- OUTSIDE RECORDS SUMMARY | 2024-05-03 20:37 | XMS_ITS | Encounter Summary ---
Author Organization [facility] Address [address] [place] [address] Care Team Providers Care Ripening Room Hand Name Role Phone Guerrero Middleton PA-C Primary Care Provide r Encounter Details Date Type Department Care Team (Late st Contact Info) Description 06/17/2023 External Device Data STL ABSTRACTION Provider, Abstract [...] week 08/21/2018 How often do you attend [facility] or nondenominational services? Never 08/21/2018 Do you belong to any clubs o r organizations such as moravian groups, unions, fraternal or athletic groups, or [...] things needed for daily living? No 08/21/2018 Sex and Gender Information Value Date Recorded Sex Assigned at Not on file Gender Identity Not on file Sexual Orientation Not on file documented as of this encounter Plan of Treatment Upcoming Encounters Date Type Department Care Team (Late st Contact Info) Description 09/14/2024 3:00 PM CDT Office Visit [facility] Heart and Vascular - [facility] [id number] [place] [address] Marlys Mayer MD [address] [place] [address] documented as of this encounter Visit Diagnoses Not on filedocumented in this encounter Care Teams Ripening Room Hand Relationship Specialty Start Date End Date Guerrero Middleton PA-C PCP - General Physician Lines Tender 02/13/18 documented as of this encounter
--- OUTSIDE RECORDS SUMMARY | 2024-05-03 20:37 | XMS_ITS | Encounter Summary ---
Author Organization [facility] Address [address] [place] [address] Care Team Providers Care Senior Actuarial Analyst Name Role Phone Guerrero Middleton PA-C Primary Care Provide r Encounter Details Date Type Department Care Team (Late st Contact Info) Description 05/22/2023 External Device Data STL ABSTRACTION Provider, Abstract [...] week 08/21/2018 How often do you attend [facility] or judaism services? Never 08/21/2018 Do you belong to any clubs o r organizations such as hinduism groups, unions, fraternal or athletic groups, or [...] Description 09/14/2024 3:00 PM CDT Office Visit [facility] Heart and Vascular - [facility] [address] [place] [address] Marlys Mayer MD [address] [place] [address] documented as of this encounter Visit Diagnoses Not on filedocumented in this encounter Care Teams Senior Actuarial Analyst Relationship Specialty Start Date End Date Guerrero Middleton PA-C PCP - General Physician Fundraising Consultant 02/13/18 documented as of this encounter
--- OUTSIDE RECORDS SUMMARY | 2024-05-03 20:37 | XMS_ITS | Encounter Summary ---
Author Organization [facility] Address [address] [place] [address] Care Team Providers Care Cold Roll Inspector Name Role Phone Guerrero Middleton PA-C Primary Care Provide r Reason for Visit * Reason Onset Date Comments Bard Port flush 11/16/2021 Attempted to patel ch pt due to needing bard port flushes Encounter Details Date Type Department Care Team (Late st Contact Info) Description 11/16/2021 Telephone [facility] Oncology [address] [place] [address] Nicole Rosas MD [address] [place] [address] Bard Port flush (Attempted to reach pt due to needing bard port flushes) Social History Tobacco Use Types Packs/Day Years [...] often do you attend chur ch or synagogue services? Never 08/21/2018 Do you belong to [...] [facility] [address] [place] [address] Marlys Mayer MD [address] [place] [address] documented as of this encounter Visit Diagnoses Not on filedocumented in this encounter Additional Health Concerns Infection Onset Date Last Indicated Resolved Time R/O GI Pathogen 09/19/2023 09/19/2023 09/21/2023 7 :33 AM CDT documented as of this encounter Care Teams Cold Roll Inspector Relationship Specialty Start Date End Date Guerrero Middleton PA-C PCP - General Physician Hospitality Intern 02/13/18 documented as of this encounter
--- OUTSIDE RECORDS SUMMARY | 2024-05-03 20:37 | XMS_ITS | Encounter Summary ---
Author Organization [facility] Address [address] [place] [address] Care Team Providers Care Autism Specialist Name Role Phone Guerrero Middleton PA-C Primary Care Provide r Encounter Details Date Type Department Care Team (Late st Contact Info) Description 04/30/2023 External Device Data STL ABSTRACTION Provider, Abstract [...] week 08/21/2018 How often do you attend [facility] or episcopal services? Never 08/21/2018 Do you belong to [...] [facility] Heart and Vascular - [facility] [address] [place] [address] Marlys Mayer MD [address] [place] [address] documented as of this encounter Visit Diagnoses Not on filedocumented in this encounter Care Teams Autism Specialist Relationship Specialty Start Date End Date Guerrero Middleton PA-C PCP - General Physician Bar Machine Operator Multiple Spindle 02/13/18 documented as of this encounter
--- OUTSIDE RECORDS SUMMARY | 2024-05-03 20:37 | XMS_ITS | Encounter Summary ---
Author Organization [facility] Address [address] [place] [address] Care Team Providers Care Protective Services Case Worker Name Role Phone Guerrero Middleton PA-C Primary Care Provide r Reason for Visit * Reason Comments ADS denial Encounter Details Date Type Department Care Team (Late st Contact Info) Description 01/26/2022 Abstract [facility] Endocrinology [address] [place] [address] Prudence Gates MD [address] [place] [address] Social History Tobacco Use Types Packs/Day Years [...] Office Visit [facility] [address] [place] [address] Marlys Mayer MD [address] [place] [address] documented as of this encounter Visit Diagnoses Not on filedocumented in this encounter Care Teams Protective Services Case Worker Relationship Specialty Start Date End Date Guerrero Middleton PA-C PCP - General Physician Hand I Cutter 02/13/18 documented as of this encounter
--- OUTSIDE RECORDS SUMMARY | 2024-05-03 20:37 | XMS_ITS | Encounter Summary ---
Author Organization [facility] Address [address] [place] [address] Care Team Providers Care Silk Screen Printer Helper Name Role Phone Guerrero Middleton PA-C Primary Care Provide r Encounter Details Date Type Department Care Team (Late st Contact Info) Description 10/26/2021 Telephone [facility] Donor Services [address] [address] Nicole Rosas MD [address] [place] [address] Social History Tobacco Use Types [...] How often do you attend chur or spiritism services? Never 08/21/2018 Do you belong to any clubs o r organizations such as caodaism groups, unions, fraternal or athletic groups, or [...] Description 09/14/2024 3:00 PM CDT Office Visit [facility] Heart and Vascular - [place] [address] [place] [address] Marlys Mayer MD [address] [place] [address] documented as of this encounter Visit Diagnoses Not on filedocumented in this encounter Additional Health Concerns Infection Onset Date Last Indicated Resolved Time R/O GI Pathogen 09/19/2023 09/19/2023 09/21/2023 7 :33 AM CDT documented as of this encounter Care Teams Silk Screen Printer Helper Relationship Specialty Start Date End Date Guerrero Middleton PA-C PCP - General Physician Electronic Technician 02/13/18 documented as of this encounter
--- OUTSIDE RECORDS SUMMARY | 2024-05-03 20:37 | XMS_ITS | Encounter Summary ---
Author Organization [facility] Address [address] [place] [address] Care Team Providers Care Forge Operator Helper Name Role Phone Guerrero Middleton PA-C Primary Care Provide r Encounter Details Date Type Department Care Team (Late st Contact Info) Description 01/04/2022 Telephone [facility] Donor Services [facility] [address] [place] [address] Phoenix Riddle MD [address] [facility] [place] [address] Social History Tobacco Use Types Packs/Day Years [...] often do you attend chur ch or restorationism services? Never 08/21/2018 Do you [...] on file Sexual Orientation Not on file COVID-19 Exposure Response Date Recorded In the last 10 days, have yo u been in contact with someone who was confirmed or suspected to have Coronavirus/COVID-19? No / Unsure 12/20/2021 9:26 AM CDT documented as of this encounter Plan of Treatment Upcoming Encounters Date Type Department Care Team (Late st Contact Info) Description 09/14/2024 3:00 PM CDT Office Visit [facility] [address] [place] [address] Marlys Mayer MD [address] [place] [address] documented as of this encounter Visit Diagnoses Not on filedocumented in this encounter Additional Health Concerns Infection Onset Date Last Indicated Resolved Time R/O GI Pathogen 09/19/2023 09/19/2023 09/21/2023 7 :33 AM CDT documented as of this encounter Care Teams Forge Operator Helper Relationship Specialty Start Date End Date Guerrero Middleton PA-C PCP - General Physician Clinical Nurse Occupational Medicine 02/13/18 documented as of this encounter
--- OUTSIDE RECORDS SUMMARY | 2024-05-03 20:37 | XMS_ITS | Encounter Summary ---
Author Organization [facility] Address [address] [place] [address] Care Team Providers Care Corral Boss Name Role Phone Guerrero Middleton PA-C Primary Care Provide r Encounter Details Date Type Department Care Team (Late st Contact Info) Description 11/12/2023 External Device Data STL ABSTRACTION Provider, Abstract [...] week 08/21/2018 How often do you attend [facility] or catholic services? Never 08/21/2018 Do you belong to any clubs o r organizations such as restorationism groups, unions, fraternal or athletic groups, or [...] Description 09/14/2024 3:00 PM CDT Office Visit [facility] Heart and Vascular - [place] [address] [place] [address] Marlys Mayer MD [address] [place] [address] documented as of this encounter Visit Diagnoses Not on filedocumented in this encounter Care Teams Corral Boss Relationship Specialty Start Date End Date Guerrero Middleton PA-C PCP - General Physician Pole Frame Construction Worker 02/13/18 documented as of this encounter
--- OUTSIDE RECORDS SUMMARY | 2024-05-03 20:37 | XMS_ITS | Encounter Summary ---
Author Organization [facility] Address [address] [place] [address] Care Team Providers Care Trolley Wire Installer Name Role Phone Guerrero Middleton PA-C Primary Care Provide r Reason for Referral * Eval and Treat (Routine) - Closed Specialty Diagnoses / Procedures Referred By Tequila t Referred To Contact Gastroenterology Diagnoses Left upper quadrant abdominal pain Prudence Gates MD [address] [place] [address] [facility] Hepatology [place] [address], [address] [place] [address] Referral ID Status Reason Start Date Expiration Date Visits Re quested Visits Authorized [id number] Closed 07/03/2022 07/03/2023 1 1 FICIAL MARBLE WORKER Reason for Visit * Reason Comments Diabetes Encounter Details Date Type Department Care Team (Late st Contact Info) Description 07/03/2022 1:30 PM ARTIFICIAL MARBLE WORKER Office Visit [facility] [place] [facility] [address] [place] [address] Prudence Gates MD [address] [place] [address] Type 2 diabetes mellitus with hyperglycemia, with long-term current use of insulin (Primary Dx); Other chronic pancreatitis; Combined hyperlipidemia; Pseudohyponatremia; Acquired hypothyroidism; History of plasmapheresis; Left upper quadrant abdominal pain; Non-compliant behavior Social History Tobacco Use Types Packs/Day Years [...] often do you attend chur ch or advent services? Never 08/21/2018 Do you belong to [...] suspected to have Coronavirus/COVID-19? No / Unsure 07/03/2022 10:04 AM ARTIFICIAL MARBLE WORKER documented as of this encounter Last Filed Vital Signs Vital Sign Reading Time Taken Comments Blood Pressure 112/80 07/03/2022 1:34 PM ARTIFICIAL MARBLE WORKER Pulse 109 07/03/2022 1:34 PM ARTIFICIAL MARBLE WORKER Temperature - - Respiratory Rate - - Oxygen Saturation 99% 07/03/2022 1:34 PM ARTIFICIAL MARBLE WORKER Inhaled Oxygen Concentration - - Weight 86.8 kg (191 lb 6.4 oz) 07/03/2022 1:34 P M ARTIFICIAL MARBLE WORKER Height 165.1 cm (5' 5 ) 07/03/2022 1:34 PM ARTIFICIAL MARBLE WORKER Body Mass Index 31.85 07/03/2022 1:34 PM ARTIFICIAL MARBLE WORKER documented in this encounter Patient Instructions * Attachments The following attachments cannot be sent through Care Everywhere. * Pancreatitis (American) documented in this encounter Progress Notes * Shira Olivo, CLAU - 07/03/2022 2:56 PM CST Reviewed diet and med taken Will set phone alarm to remind her to take insulin and meds Change basaglar to tresiba u200 62 units in am FICIAL MARBLE WORKER * Prudence Gates MD - 07/03/2022 2:02 PM CST Csaandra Jonse is a 46 y.o. 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 This was evident on CT with mild fat stranding. She is being treated with plasmapheresis (with the ports she used to get treatments twice a month) She has bouts of pancreatitis and had to be hospitalized several times She is on disability. She is on a [employer] program. She is depressed She eats once a day She drinks coffee in the morning She has dinner , take out or restaurant food once a week. For her lipids She takes fenofibrate 160 mg. She went to the [facility] and was told to stop the fish oil (vascepa) She also takes rosuvastatin 20 mg a day. +depression , lacks motivation She has not been taking the Vascepa for the above mentioned reasons She is very depressed, she is not exercising. She lives with her She has 3 boys the younger is 19 yo they are all in Colleges. She has not been following her strict DM: Compliant with insulin basaglar 35 units bid but when downloading her sensor, she has not been taking it regularly. She has not been using the short acting insulin on a regular basis She is also taking Jardiance 25 mg a day, fortunately getting assistance. Takes metformin 500 BID. She is using the Dexcom G6 sensor (much better than previous visits) Sensor downloaded On target 69% of the time Low blood sugars <1% of the time Very low blood sugars 0% Water intake 32 oz and ice tea (1/2 gallon to 1 gallon) Has occassional numbness and tingling in feet. She is still very depressed. Also has hypothyroidism. She takes levothyroxine 200 mcg/d. She complains of left upper quadrant pain and epigastric pain, this can be moderate. She also complains of arthralgias mostly in the 3-4 fingers Review of Systems - General ROS: negative for fever Psychological ROS: + for anxiety and depressive symptoms controlled Endocrine ROS: negative for polyuria/polydipsia or new changes in weight Respiratory ROS: negative for cough, shortness of breath, or wheezing Cardiovascular ROS: negative for chest pain or dyspnea on exertion Gastrointestinal ROS: negative for reflux, +abdominal pain, change in bowel habits, or black or bloody stools Genito-Urinary ROS: negative for dysuria, trouble voiding, or hematuria Musculoskeletal ROS: negative for back pain, neck pain or joint pain or swelling Neurological ROS: negative for TIA or stroke symptoms Current Outpatient Medications on File Prior to Visit Medication Sig Dispense Refill insulin aspart U-100 (NovoLOG Flexpen U-100 Insulin) 100 unit/mL pen syringe INJECT APPROXIMATELY 50 UNITS A DAY PER CORRECTION DOSE WITH MEALS 15 mL 0 empagliflozin (Jardiance) 25 mg tablet TAKE 1 TABLET BY MOUTH EVERY DEFENSIVE LINE COACH 30 Tablet 0 Vascepa 1 gram Capsule TAKE 2 CAPSULES (2 GRAMS) BY MOUTH 2 TIMES DAILY WITH MEALS. 120 Capsule 0 fenofibrate (LOFIBRA) 160 mg Tablet TAKE 1 TABLET BY MOUTH EVERY DAY 90 Tablet 0 metFORMIN (GLUCOPHAGE) 1,000 mg tablet TAKE 1 TABLET (1,000 MG) BY MOUTH 2 TIMES DAILY WITH MEALS. 180 Tablet 0 citalopram (CeleXA) 40 mg tablet TAKE 1 TABLET BY MOUTH EVERY DAY 90 Tablet 1 levothyroxine 200 mcg tablet Take 1 Tablet (200 mcg) by mouth daily. Once daily on an empty Tablet 3 LORazepam (ATIVAN) 1 mg tablet Take 1 Tablet (1 mg) by mouth 2 times daily as needed for Anxiety. 60 Tablet 2 [DISCONTINUED] insulin glargine (Basaglar KwikPen U-100 Insulin) 100 unit/mL pen syringe 35 units bid 60 mL 1 Dexcom G6 Sensor Device Change sensor every 10 days. (9 sensors = 90 days) 9 Each 1 Dexcom G6 Transmitter Device Change transmitter every 90 days 1 Each 1 varenicline (Chantix) 0.5 mg Tablet Take 1 Tablet (0.5 mg) by mouth 2 times daily. 60 Tablet 0 ondansetron (ZOFRAN ODT) 4 mg Tablet, Rapid Dissolve Dissolve 1 tablet on top of tongue, then swallow with saliva every 6 hours as needed for nausea/vomiting. 30 Tablet 0 pantoprazole (PROTONIX) 40 mg Tablet, Delayed Release (E.C.) Take 40 mg by mouth 2 times daily . traZODone (DESYREL) 100 mg tablet Take 100 mg by mouth daily at bedtime . rosuvastatin (CRESTOR) 20 mg tablet Take 20 mg by mouth daily at bedtime. No current facility-administered medications on file prior to visit. Allergies Allergen Reactions Adhesive Tape-Silicones Hives Green Pepper Hives Adhesive Unknown Aspartame Headache Past Medical History: Diagnosis Date Anxiety Chylomicronemia [...] replacement of left power flow port 05/11/2019 SD ESOPHAGOGASTRODUODENOSCOPY TRANSORAL DIAGNOSTIC N/A 03/08/2018 ESOPHAGOGASTRODUODENOSCOPY performed by Ceasar Vega MD at [facility] GI [facility] Family History Problem Relation Name Age of Onset Diabetes Father High Cholesterol Father Hypertension Father Stroke Mother Heart Disease Mother Thyroid Disease Mother High Cholesterol Mother Heart Disease Maternal Grandmother Diabetes Maternal Grandmother Diabetes Paternal Grandmother Diabetes Mother Social History Tobacco Use Smoking status: Every Day Packs/day: 1.00 Years: 18.00 Pack years: 18.00 Types: Cigarettes Smokeless tobacco: Never Tobacco comments: nicotine patch requested Substance Use Topics Alcohol use: No PE:The patient is alert oriented x3 BP 112/80 Pulse (!) 109 Ht 5' 5 (1.651 m) Wt 86.8 kg (191 lb 6.4 oz) SpO2 99% BMI 31.85 kg/m?? NAD Neck is supple, there is no thyroid enlargement. There are no enlarged Lymph nodes +right hand wrist painful to light touch, no ecchymosis, +edema, no erythema CV: S1S2 normal in rhythm and rate Resp: CTA bilaterally Abd: soft, non tender, no organomegaly Ext: No edema Feet exam: Monofilament exam: nl Vibratory sensation on both feet nl PP:nl DTR's nl Labs Lab Results Component Value Date/Time HGBA1C 8.9 (H) 08/24/2021 12:21 PM Lab Results Component Value Date/Time CHOLTOT 297 (H) 08/25/2021 04:23 AM HDL 08/25/2021 04:23 AM Comment: Measured HDL is not accurate when the Triglyceride value exceeds 1200. LDLCALC 08/25/2021 04:23 AM Comment: Calculated LDL is not accurate when the Triglyceride value exceeds 400. LDLDIRECT 110 08/10/2011 07:21 AM TRIGLYCERIDE 336 (H) 09/17/2021 05:20 AM Lab Results Component Value Date/Time NA 141 09/19/2021 04:11 AM K 4.0 09/19/2021 04:11 AM CL 102 09/19/2021 04:11 AM CO2 29 09/19/2021 04:11 AM CA 8.8 09/19/2021 04:11 AM BUN 6 09/19/2021 04:11 AM CREAT 0.63 09/19/2021 04:11 AM GLUCOSE 148 (H) 09/19/2021 04:11 AM TOTALPROTEIN 6.2 (L) 09/19/2021 04:11 AM ALBUMIN 4.5 09/19/2021 04:11 AM BILITOTAL 0.2 (L) 09/19/2021 04:11 AM ALKPHOS 45 09/19/2021 04:11 AM AST 26 09/19/2021 04:11 AM ALT 18 09/19/2021 04:11 AM ANIONGAP 10 09/19/2021 04:11 AM Lab Results Component Value Date/Time [id number] 51 08/10/2011 07:21 AM [id number] 6 08/10/2011 07:21 AM [id number] 57 08/10/2011 07:21 AM Lab Results Component Value Date/Time WBC 5.2 09/19/2021 04:11 AM HGB 9.9 (L) 09/19/2021 04:11 AM HCT 31.5 (L) 09/19/2021 04:11 AM PLT 187 09/19/2021 04:11 AM MCV 94.3 09/19/2021 04:11 AM No results found for: MICROALBUMIN, MALBUR, [id number], MICRCREATR, MICRALBURINE Lab Results Component Value Date/Time TSH 1.59 12/27/2020 09:05 AM ASSESSMENT: Encounter Diagnoses Name Primary? Type 2 diabetes mellitus with hyperglycemia, with long-term current use of insulin Yes Other chronic pancreatitis Combined hyperlipidemia Pseudohyponatremia Acquired hypothyroidism History of plasmapheresis Left upper quadrant abdominal pain Non-compliant behavior PLAN: Orders Placed This Encounter HEMOGLOBIN A1C LIPID PANEL COMPREHENSIVE METABOLIC PANEL AMYLASE LIPASE LDL CHOLESTEROL, DIRECT TSH KETONES/BETA HYDROXYBUTYRATE (Hypoglycemia) *Víctor Bernard MD (Hepatology) traMADoL (ULTRAM) 50 mg tablet Tresiba FlexTouch U-200 200 unit/mL (3 mL) pen syringe Smoking cessation of most importance. Recommended cessaton DM Needs strict control to be able to control her high Tg as well Needs to start her strict diet glargine 35 units bid Novolog insulin with meals Sensor download obtained Data from the last 10 days reviewed and discussed with the patient insulin changes made based on that data. Time of insulin administration related to meals, exercise and patterns reviewed with the patient The patient needs to check the blood sugars before meals and bedtime for 1 week and send the numbers so we can adjust the diabetes medications/insulin if on it. To improve compliance, change to once daily Tresiba 62 units a day All meds to be taken once in am Needs to have perfect control of her diabetes to help with her high TG this was emphasized once more Diet reviewed Consider using a closed loop insulin pump Target blood sugars between 80-120 in am and less than 140 premeals Needs to remain hydrated. Very high TG Recheck in am fasting Continue statins, goal LDL <50 Start baby aspirin once a day. Regarding her severe hypertriglyceridemia, she requires monthly plasmapheresis, strict diet, exercise, fibrates and statins Regarding her hypothyroidism, it needs to be controlled, this also worsens her TG. The patient is aware of the TSH targets, in order to prevent over or undertreatment with subsequentrisk of cardiovascular disease among others. I talked to the patient about levothyroxine replacement, how it should taken fasting and 30 min away from food or other medications specifically vitamins and 4 hours away from Calcium supplementation. I also recommended the use of a brand name medication since its absorption is more reliable although if cost prohibitive, we can try the generic version. Keep pills in a cool , dry place, away from heat and humidity. TSH goal and Monitoring frequency d/w pt Depression /anxiety : big issue bupropion (mechanism of action and side effects of that medication discussed) This will also help with smoking cessation Left upper quadrant pain Labs ordered Abdominal exam benign, no guarding, normal BS ER if worse of if evidence of pancreatitis per labs Clear liquids until labs are back PRN tramadol only for a few days, discussed potential addiction with pain medications. Needs to work on preventing the pancreatitis Arthralgias: topical lidocaine. Orders Placed This Encounter HEMOGLOBIN A1C LIPID PANEL COMPREHENSIVE METABOLIC PANEL AMYLASE LIPASE LDL CHOLESTEROL, DIRECT TSH KETONES/BETA HYDROXYBUTYRATE (Hypoglycemia) *Víctor Bernard MD (Hepatology) traMADoL (ULTRAM) 50 mg tablet Tresiba FlexTouch U-200 200 unit/mL (3 mL) pen syringe Thank you very much for allowing us to participate in this patient care. If you have any questions or concerns, please do not hesitate to contact us, Sincerely yours Prudence Gates On the day of the visit, I spent 45 minutes providing care to this patient including Preparing to see the patient, Obtaining and/or reviewing separately obtained history, Performing a medically appropriate examination and/or evaluation, Counseling and educating the patient, Ordering medications, tests or procedures and Documenting clinical information in the medical record. FICIAL MARBLE WORKER documented in this encounter Plan of Treatment Upcoming Encounters Date Type Department Care Team (Late st Contact Info) Description 09/14/2024 3:00 PM CDT Office Visit [facility] [place] [facility] - [facility] [address] [place] [id number] Marlys Mayer MD [address] [place] [address] Scheduled Referrals Name Type Priority Associated Diagnoses Order Schedule AMB REFERRAL TO GASTROENTEROLOGY Outpatient Referral Routine Left upper quadrant abdominal pain Ordered: 07/03/2022 documented as of this encounter Visit Diagnoses Diagnosis Type 2 diabetes mellitus with hyperglycemia, with long-term current use of insulin- Primary Other chronic pancreatitis Combined hyperlipidemia Mixed hyperlipidemia Pseudohyponatremia Acquired hypothyroidism Unspecified hypothyroidism History of plasmapheresis Left upper quadrant abdominal pain Non-compliant behavior documented in this encounter Care Teams Trolley Wire Installer Relationship Specialty Start Date End Date Guerrero Middleton PA-C PCP - General Physician Learning Support Services Director 02/13/18 documented as of this encounter
--- OUTSIDE RECORDS SUMMARY | 2024-05-03 20:37 | XMS_ITS | Encounter Summary ---
Author Organization [facility] Address [address] [place] [address] Care Team Providers Care Physician Industrial Name Role Phone Guerrero Middleton PA-C Primary Care Provide r Encounter Details Date Type Department Care Team (Late st Contact Info) Description 09/24/2023 External Device Data STL ABSTRACTION Provider, Abstract [...] week 08/21/2018 How often do you attend [facility] or samaritan services? Never 08/21/2018 Do you belong to any clubs o r organizations such as mormon groups, unions, fraternal or athletic groups, or [...] Description 09/14/2024 3:00 PM CDT Office Visit [facility] - [place] [address] [place] [address] Marlys Mayer MD [address] [place] [address] documented as of this encounter Visit Diagnoses Not on filedocumented in this encounter Care Teams Physician Industrial Relationship Specialty Start Date End Date Guerrero Middleton PA-C PCP - General Physician Acetylene Torch Operator 02/13/18 documented as of this encounter
--- OUTSIDE RECORDS SUMMARY | 2024-05-03 20:37 | XMS_ITS | Encounter Summary ---
Author Organization [facility] Address [address] [place] [address] Care Team Providers Care Networking Administrator Name Role Phone Guerrero Middleton PA-C Primary Care Provide r Encounter Details Date Type Department Care Team (Late st Contact Info) Description 10/29/2023 External Device Data STL ABSTRACTION Provider, Abstract [...] week 08/21/2018 How often do you attend [facility] or christian services? Never 08/21/2018 Do you belong to any clubs o r organizations such as buddhist groups, unions, fraternal or athletic groups, or [...] [facility] - [place] [address] [place] [address] Marlys Mayer MD [address] [place] [address] documented as of this encounter Visit Diagnoses Not on filedocumented in this encounter Care Teams Networking Administrator Relationship Specialty Start Date End Date Guerrero Middleton PA-C PCP - General Physician County Surveyor 02/13/18 documented as of this encounter
--- OUTSIDE RECORDS SUMMARY | 2024-05-03 20:37 | XMS_ITS | Encounter Summary ---
Author Organization [facility] Address [address] [place] [address] Care Team Providers Care Steno Typist Name Role Phone Guerrero Middleton PA-C Primary Care Provide r Reason for Visit * Reason Comments aetna approval letter Encounter Details Date Type Department Care Team (Late st Contact Info) Description 10/20/2021 Abstract [facility] Endocrinology [address] [place] [address] Prudence Gates MD [address] [place] [address] Social History Tobacco Use Types Packs/Day Years [...] often do you attend chur ch or congregation services? Never 08/21/2018 Do you belong to any clubs o r organizations such as voodoo groups, unions, fraternal or athletic groups, or [...] Description 09/14/2024 3:00 PM CDT Office Visit [facility] [address] [place] [address] Marlys Mayer MD [address] [place] [address] documented as of this encounter Visit Diagnoses Not on filedocumented in this encounter Care Teams Steno Typist Relationship Specialty Start Date End Date Guerrero Middleton PA-C PCP - General Physician Fnps 02/13/18 documented as of this encounter
--- OUTSIDE RECORDS SUMMARY | 2024-05-03 20:37 | XMS_ITS | Encounter Summary ---
Author Organization [facility] Address [address] [place] [address] Care Team Providers Care Boat Pilot Name Role Phone Guerrero Middleton PA-C Primary Care Provide r Encounter Details Date Type Department Care Team (Late st Contact Info) Description 03/18/2023 External Device Data STL ABSTRACTION Provider, Abstract [...] attend [facility] or sikhism services? Never 08/21/2018 Do you belong to any clubs o r organizations such as zoroastrian groups, unions, fraternal or athletic groups, or [...] Description 09/14/2024 3:00 PM CDT Office Visit [facility] Heart [facility] V[facility] - [facility] [address] [place] [address] Marlys Mayer MD [address] [place] [address] documented as of this encounter Visit Diagnoses Not on filedocumented in this encounter Care Teams Boat Pilot Relationship Specialty Start Date End Date Guerrero Middleton PA-C PCP - General Physician Drain Tile Machine Operator 02/13/18 documented as of this encounter
--- OUTSIDE RECORDS SUMMARY | 2024-05-03 20:37 | XMS_ITS | Encounter Summary ---
Author Organization [facility] Address [address] [place] [address] Care Team Providers Care Roll Operator Name Role Phone Guerrero Middleton PA-C Primary Care Provide r Encounter Details Date Type Department Care Team (Latest Contact Info) Description 07/03/2022 10:30 AM LIGHTHOUSE KEEPER - 07/03/2022 11:59 PM [facility] Hospital Encounter [facility] Donor Services [facility] [address] [place] [address] [place] Riddle MD [address] [place] [address] Discharge Disposition: Home or Self Care Social [...] often do you attend chur ch or taoism services? Never 08/21/2018 Do you belong to any clubs o r organizations such as alevism groups, unions, fraternal or athletic groups, or [...] Coronavirus/COVID-19? No / Unsure 07/03/2022 10:04 AM LIGHTHOUSE KEEPER documented as of this encounter Last Filed Vital Signs Vital Sign Reading Time Taken Comments Blood Pressure 128/94 07/03/2022 10:16 AM LIGHTHOUSE KEEPER Pulse 85 07/03/2022 10:16 AM LIGHTHOUSE KEEPER Temperature 36.8 ??C (98.2 ??F) 07/03/2022 10:[address] Respiratory Rate 16 07/03/2022 10:16 AM LIGHTHOUSE KEEPER Oxygen Saturation - - Inhaled Oxygen Concentration - - Weight - - Height - - Body Mass Index - - documented in this encounter Medications at Time of Discharge Medication Sig Dispensed Refills Start Date End Date fenofibrate (LOFIBRA) 160 mg Tablet TAKE 1 TABLET BY MOUTH EVERY DAY 90 Tablet 05/01/2021 citalopram (CeleXA) 40 mg tablet TAKE 1 TABLET BY MOUTH EVERY DAY 90 Tablet 1 11/01/2020 traZODone (DESYREL) 100 mg tablet Take 100 mg by mouth daily at bedtime . citalopram (CeleXA) 40 mg tablet Take 40 mg by mouth daily. 11/01/2020 09/26/2023 levothyroxine 200 mcg tablet Take 200 mcg by mouth. 10/28/2018 09/26/2023 metFORMIN (GLUCOPHAGE) 500 mg tablet Take 500 mg by mouth 2 times daily. 06/05/2018 09/26/2023 Tresiba FlexTouch U-200 200 unit/mL (3 mL) pen syringe Inject 62 Units by subcutaneous injection daily in the morning. 18 mL 2 07/04/2022 09/26/2023 insulin aspart U-100 (NovoLOG Flexpen U-100 Insulin) 100 unit/mL pen syringe INJECT APPROXIMATELY 50 UNITS A DAY PER CORRECTION DOSE WITH MEALS 15 mL 06/01/2021 09/26/2023 empagliflozin (Jardiance) 25 mg tablet TAKE 1 TABLET BY MOUTH EVERY BRIM ROUNDER 30 Tablet 06/01/2021 09/19/2023 Vascepa 1 gram Capsule TAKE 2 CAPSULES (2 GRAMS) BY MOUTH 2 TIMES DAILY WITH MEALS. 120 Capsule 06/01/2021 09/19/2023 metFORMIN (GLUCOPHAGE) 1,000 mg tablet TAKE 1 TABLET (1,000 MG) BY MOUTH 2 TIMES DAILY WITH MEALS. 180 Tablet 05/01/2021 11/29/2023 levothyroxine 200 mcg tabletIndications:Acq uired hypothyroidism Take 1 Tablet (200 mcg) by mouth daily. Once daily on an empty stomach 90 Tablet 3 09/15/2020 09/26/2023 insulin glargine (Basaglar KwikPen U-100 Insulin) 100 unit/mL pen syringe 35 units bid 60 mL 1 09/15/2020 07/04/2022 LORazepam (ATIVAN) 1 mg tabletIndications:Dep ression with anxiety Take 1 Tablet (1 mg) by mouth 2 times daily as needed for Anxiety. 60 Tablet 2 09/15/2020 09/26/2023 Dexcom G6 Sensor Device Change sensor every 10 days. (9 sensors = 90 days) 9 Each 1 05/16/2020 12/26/2023 Dexcom G6 Transmitter Device Change transmitter every 90 days 1 Each 1 05/16/2020 12/26/2023 varenicline (Chantix) 0.5 mg Tablet Take 1 Tablet (0.5 mg) by mouth 2 times daily. 60 Tablet 12/14/2019 09/19/2023 ondansetron (ZOFRAN ODT) 4 mg Tablet, Rapid Dissolve Dissolve 1 tablet on top of tongue, then swallow with saliva every 6 hours as needed for nausea/vomiting. 30 Tablet 05/21/2018 09/26/2023 pantoprazole (PROTONIX) 40 mg Tablet, Delayed Release (E.C.) Take 40 mg by mouth 2 times daily . 09/26/2023 rosuvastatin (CRESTOR) 20 mg tablet Take 20 mg by mouth daily at bedtime. 09/19/2023 documented as of this encounter Progress Notes * Sharri Juarez, RN - 07/03/2022 10:30 AM CST BARD ports flushed per policy without issue. Patient leaves BDS department ambulatory and stable. THOUSE KEEPER documented in this encounter Plan of Treatment Upcoming Encounters Date Type Department Care Team (Late st Contact Info) Description 09/14/2024 3:00 PM CDT Office Visit [facility] - [facility] [place] [id number] [place] [address] Marlys Mayer MD [address] [place] [address] documented as of this encounter Visit Diagnoses Diagnosis Hypertriglyceridemia- Primary Pure hyperglyceridemia documented in this encounter Administered Medications Inactive Administered Medications - up to 3 most recent administrations Medication Order MAR Action Action Date Dose Rate Site heparin, porcine lock flush (pf) 100 unit/mL injection 500 Units 500 Units, IV, ONE TIME ONLY, 1 dose, On Sat07/03/22 at 0830, Routine, Tube to 516 Given 07/03/2022 10:42 AM LIGHTHOUSE KEEPER 500 Units Port heparin, porcine lock flush (pf) 100 unit/mL injection 500 Units 500 Units, IV, ONE TIME ONLY, 1 dose, On Sat07/03/22 at 0830, Routine, Tube to 516 Given 07/03/2022 10:40 AM LIGHTHOUSE KEEPER 500 Units Port sodium chloride flush injection 10 mL 10 mL, IV, ONE TIME ONLY, 1 dose, On Sat07/03/22 at 0830, Routine Given 07/03/2022 10:41 AM LIGHTHOUSE KEEPER 10 mL Port sodium chloride flush injection 10 mL 10 mL, IV, ONE TIME ONLY, 1 dose, On Sat07/03/22 at 0830, Routine Given 07/03/2022 10:42 AM LIGHTHOUSE KEEPER 10 mL Port sodium chloride flush injection 20 mL 20 mL, IV, ONE TIME ONLY, 1 dose, On Sat07/03/22 at 0830, Routine Given 07/03/2022 10:39 AM LIGHTHOUSE KEEPER 20 mL documented in this encounter Care Teams Roll Operator Relationship Specialty Start Date End Date Guerrero Middleton PA-C PCP - General Physician Certified Green Building Engineer 02/13/18 documented as of this encounter
--- OUTSIDE RECORDS SUMMARY | 2024-05-03 20:37 | XMS_ITS | Encounter Summary ---
Author Organization [facility] Address [address] Orozco: Epic Prelude ADT [place] [address] Care Team Providers Care Ball Maker Name Role Phone Guerrero Middleton PA-C Primary Care Provide r Encounter Details Date Type Department Care Team (Latest Contact Info) Description 12/19/2021 Travel Social History Tobacco Use Types Packs/Day Years [...] How often do you attend [facility] or congregation services? Never 08/21/2018 Do you belong to any clubs o r organizations such as hoahaoism groups, unions, fraternal or athletic groups, or [...] was confirmed or suspected to have Coronavirus/COVID-19? Unable to assess 12/19/2021 5:32 PM CDT documented as of this encounter Plan of Treatment Upcoming Encounters Date Type Department Care Team (Late st Contact Info) Description 09/14/2024 3:00 PM CDT Office Visit [facility] - [facility] [place] [address] [place] [address] Marlys Mayer MD [address] [place] [address] documented as of this encounter Visit Diagnoses Not on filedocumented in this encounter Care Teams Ball Maker Relationship Specialty Start Date End Date Guerrero Middleton PA-C PCP - General Physician Counter Roller 02/13/18 documented as of this encounter
--- OUTSIDE RECORDS SUMMARY | 2024-05-03 20:37 | XMS_ITS | Encounter Summary ---
Author Organization [facility] Address [address] [place] [address] Care Team Providers Care Decorator Consultant Name Role Phone Guerrero Middleton PA-C Primary Care Provide r Reason for Visit * Reason Onset Date Comments IOP 09/22/2021 Encounter Details Date Type Department Care Team (Late st Contact Info) Description 09/22/2021 Telephone [facility] Adult OP Services [address] [address] Linda Rogers, ANNA [address] [address] [facility] Social History Tobacco Use Types Packs/Day Years [...] How often do you attend chur or christianity services? Never 08/21/2018 Do you belong to [...] suspected to have Coronavirus/COVID-19? No / Unsure 09/13/2021 4:35 PM CDT documented as of this encounter Plan of Treatment Upcoming Encounters Date Type Department Care Team (Late st Contact Info) Description 09/14/2024 3:00 PM CDT Office Visit [facility] [address] [place] [id number] Marlys Mayer MD [address] [place] [address] documented as of this encounter Visit Diagnoses Not on filedocumented in this encounter Care Teams Decorator Consultant Relationship Specialty Start Date End Date Guerrero Middleton PA-C PCP - General Physician Cardiovascular Or Nurse 02/13/18 documented as of this encounter
--- OUTSIDE RECORDS SUMMARY | 2024-05-03 20:37 | XMS_ITS | Encounter Summary ---
Author Organization [facility] Address [address] Orozco: Epic Prelude ADT [place] [address] Care Team Providers Care Client Server Developer Name Role Phone Guerrero Middleton PA-C Primary Care Provide r Encounter Details Date Type Department Care Team (Latest Contact Info) Description 07/03/2022 Travel Social History Tobacco Use Types Packs/Day [...] week 08/21/2018 How often do you attend [facility] or anabaptist services? Never 08/21/2018 Do you belong to [...] Coronavirus/COVID-19? No / Unsure 07/03/2022 10:04 AM PELLET POST INSPECTOR documented as of this encounter Plan of Treatment Upcoming Encounters Date Type Department Care Team (Late st Contact Info) Description 09/14/2024 3:00 PM CDT Office Visit [facility] [address] [place] [address] Marlys Mayer MD [address] [place] [address] documented as of this encounter Visit Diagnoses Not on filedocumented in this encounter Care Teams Client Server Developer Relationship Specialty Start Date End Date Guerrero Middleton PA-C PCP - General Physician Infection Control Specialist 02/13/18 documented as of this encounter
--- OUTSIDE RECORDS SUMMARY | 2024-05-03 20:37 | XMS_ITS | Encounter Summary ---
Author Organization [facility] Address 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 Pt has hx of chronic pancreatitis d/t genetic condition causing high triglycerides and CT w/stents placed 06/2023. Pt has been having CP, SOB, dizziness and upper gastric pain going on since discharge. Pt has referral to inspector general and specialist set up in November but unable to wait d/t the pain and weakness. Pt states the CP/abd pain is similar to previous pancreatitic episodes, but SOB/dizziness, syncope is new, * Auth/Cert (Routine) Specialty Diagnoses / Procedures Referred By Tequila t Referred To Contact Emergency Medicine [facility] Emergency Dept [address] [place] [address] Referral ID Status Reason Start Date Expiration Date Visits Re quested Visits Authorized [id number] 1 1 Encounter Details Date Type Department Care Team (Latest Contact Info) Description 09/19/2023 4:28 AM CDT - 09/26/2023 6:45 PM CDT Hospital Encounter [facility] [address] [place] [address] Yojana Washington MD [address] [place] [address] Herlinda Mederos DO [address] [facility] [address] [place] [address] Amol Wang MD [address] [place] [address] Parviz Sanabria MD [address] [place] [address] Kortney Ray, [address] [facility] [address] [place] [address] Acute on chronic pancreatitis Discharge Disposition: Home or Self Care Social [...] often do you attend chur ch or latter-day services? Never 08/21/2018 Do you belong to any clubs o r organizations such as protestant groups, unions, fraternal or athletic groups, or [...] Sign Reading Time Taken Comments Blood Pressure 130/59 09/26/2023 5:52 PM CDT Pulse 79 09/26/2023 5:52 PM CDT Temperature 36.6 ??C (97.9 ??F) 09/26/2023 12:15 PM C DT Respiratory Rate 14 09/26/2023 12:15 PM CDT Oxygen Saturation 98% 09/26/2023 5:52 PM CDT Inhaled Oxygen Concentration - - Weight 86.2 kg (190 lb) 09/18/2023 9:36 PM CDT Height 165.1 cm (5' 5 ) 09/18/2023 9:36 PM CDT Body Mass Index 31.62 09/18/2023 9:36 PM CDT documented in this encounter Discharge Summaries * Kortney Ray DO - 09/26/2023 1:05 PM CDT Images from the original note were not included. [facility] Adult Hospitalist Discharge Summary Casandra Doss 47 y.o. female 1975 CSN: [id number] Date of Admission: 09/19/2023 Date of Discharge: 09/26/2023 Discharging Physician: Kortney Ray DO LOS: 7 days PCP: Guerrero Middleton PA-C Activity: activity as tolerated. Dispo: home Diet: DIET FAT CONTROL Code Status at Discharge: Full Code Wound Care: None needed Chief Complaint Patient presents with syncope Pt presents with multiple syncopal episodes since 09/02 since d/c from OSH. Pt has hx of chronic pancreatitis d/t genetic condition causing high triglycerides and CT w/stents placed 06/2023. Pt has beenhaving CP, SOB, dizziness and upper gastric pain going on since discharge. Pt has referral to inspector general and specialist set up in November but unable to wait d/t the pain and weakness. Pt states the CP/abd pain is similar to previous pancreatitic episodes, but SOB/dizziness, syncope is new, Hospital Course: Casandra Doss is a 47 y.o. female with PMH hypertriglyceridemia who presented to [facility] 09/19/2023 for chief complaint of syncope. She was found to have acute on chronic pancreatitis due to hypertriglyceridemia. Her syncope was determined to be due to low volume state. She initially was treated with insulin drip for hypertriglyceridemia. Her abdominal pain slowly improved and she was tolerating PO intake. Her insulin was adjusted at discharge to reflect reduced PO intake. She was recommended to follow up with her regional account manager for further adjustments as PO intake continues to improve. Admitting Dx: Acute on chronic pancreatitis Discharge Diagnoses: Active Hospital Problems Diagnosis Syncope and collapse Atherosclerosis of coronary artery Acute on chronic pancreatitis Chylomicronemia syndrome Hypertriglyceridemia Resolved Hospital Problems No resolved problems to display. Follow-up: Guerrero Middleton PA-C in 5 days. Labs Needing Follow Up: none Discharge medications and new prescriptions: Medication List START taking these medications Creon 36,000-114,000- 180,000 unit capsule Take 2 Capsules by mouth 3 times daily with meals. Signed by: Dr. Alma Ray Quantity: 180 Capsule Refills: 0 Generic drug: eyydhk-vcirembf-jebnrkh metoprolol succinate 25 mg Extended Release 24 hour tablet Commonly known as: TOPROL XL Take 0.5 Tablets (12.5 mg) by mouth daily. Start taking on: September 27, 2023 Signed by: Dr. Alma Ray Quantity: 15 Tablet Refills: 0 oxyCODONE 10 mg tablet Commonly known as: ROXICODONE Take 1 Tablet (10 mg) by mouth every 6 hours. Max Daily Amount: 40 mg Signed by: Dr. Alma Ray Quantity: 20 Tablet Refills: 0 CHANGE how you take these medications citalopram 40 mg tablet Commonly known as: CeleXA What changed: Another medication with the same name was removed. Continue taking this medication, and follow the directions you see here. TAKE 1 TABLET BY MOUTH EVERY DAY Signed by: Dr. Ne Pierson Quantity: 90 Tablet Refills: 1 insulin aspart U-100 100 unit/mL pen syringe Commonly known as: NovoLOG Flexpen U-100 Insulin What changed: how much to take how to take this when to take this Inject 5 Units by subcutaneous injection 3 times daily with meals. INJECT APPROXIMATELY 50 UNITS A DAY PER CORRECTION DOSE WITH MEALS Signed by: Dr. Alma Ray Refills: 0 * levothyroxine 100 mcg tablet Commonly known as: Synthroid What changed: medication strength how much to take when to take this additional instructions Take 1 Tablet (100 mcg) by mouth daily in the morning. Signed by: Dr. Alma Ray Quantity: 30 Tablet Refills: 0 * levothyroxine 125 mcg tablet Commonly known as: Synthroid What changed: medication strength how much to take when to take this Take 1 Tablet (125 mcg) by mouth daily in the morning. Signed by: Dr. Alma Ray Quantity: 30 Tablet Refills: 0 metFORMIN 1,000 mg tablet Commonly known as: GLUCOPHAGE What changed: Another medication with the same name was removed. Continue taking this medication, and follow the directions you see here. TAKE 1 TABLET (1,000 MG) BY MOUTH 2 TIMES DAILY WITH MEALS. Signed by: Dr. Chata Gates Quantity: 180 Tablet Refills: 0 pantoprazole 40 mg Tablet, Delayed Release (E.C.) Commonly known as: PROTONIX What changed: Another medication with the same name was removed. Continue taking this medication, and follow the directions you see here. Take 40 mg by mouth daily. Refills: 0 Tresiba FlexTouch U-200 200 unit/mL (3 mL) pen syringe What changed: how much to take Inject 20 Units by subcutaneous injection daily in the morning. Signed by: Dr. Alma Ray Refills: 0 Generic drug: insulin degludec * !!Potential duplicate medications found. Review medication list carefully. CONTINUE taking these medications aspirin 81 mg Tablet, Delayed Release (E.C.) Commonly known as: ECOTRIN EC Take 81 mg by mouth daily. Refills: 0 atorvastatin 40 mg tablet Commonly known as: LIPITOR Take 80 mg by mouth daily. Refills: 0 Dexcom G6 Sensor Device Change sensor [...] Chata Gates Quantity: 90 Tablet Refills: 0 ondansetron 4 mg Tablet, Rapid Dissolve Commonly known as: ZOFRAN ODT Take 1 Tablet (4 mg) by mouth every 6 hours as needed for Nausea/Emesis. Signed by: Dr. Alma Ray Quantity: 30 Tablet Refills: 0 ticagrelor 90 mg Tablet Commonly known as: BRILINTA Take 90 mg by mouth 2 times daily. Refills: 0 traZODone 100 mg tablet Commonly known as: DESYREL Take 100 mg by mouth daily at bedtime . Refills: 0 STOP taking these medications LORazepam 0.5 mg tablet Commonly known as: ATIVAN LORazepam 1 mg tablet Commonly known as: ATIVAN losartan 25 mg tablet Commonly known as: COZAAR metFORMIN 500 mg tablet Commonly known as: GLUCOPHAGE You also have another medication with the same name that you need to continue taking as instructed. Where to Get Your Medications These medications were sent to [facility]/pharmacy #[id number] - [place], [place] - [address] [facility] [address] [facility] [address] Creon 36,000-114,000- 180,000 unit capsule levothyroxine 100 mcg tablet levothyroxine 125 mcg tablet metoprolol succinate 25 mg Extended Release 24 hour tablet ondansetron 4 mg Tablet, Rapid Dissolve oxyCODONE 10 mg tablet Please take the prescriptions given to you during your stay and have them filled at any pharmacy. You don't need a prescription for these medications insulin aspart U-100 100 unit/mL pen syringe Tresiba FlexTouch U-200 200 unit/mL (3 mL) pen syringe Consultants: None Significant Diagnostic Studies This Admission: Results for orders placed during the hospital encounter of 09/19/23 CT ABDOMEN PELVIS W CONTRAST Narrative EXAMINATION: Computed tomography of the abdomen and pelvis with intravenous contrast DATE: 09/19/2023 12:01 PM HISTORY: Pancreatitis, acute, severe. Syncope and collapse; Other acute pancreatitis, unspecified complication status; Atherosclerosis of coronary artery, unspecified vessel or lesion type, unspecified whether angina present, unspecified whether [place] or transplanted heart; Chylomicronemia syndrome. TECHNIQUE: Computed tomography of the abdomen and pelvis was performed following the uneventful administration of IOPAMIDOL 61 % INTRAVENOUS SOLUTION (MULTI-DOSE BULK PACK) Given:90 mL contrast according to standard protocol. The examination was performed with the adjustment of mA according to the patient size and/or the use of Iterative 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 COMPARISON: 09/13/2021 FINDINGS: LOWER CHEST: Within normal limits. LIVER: Mild diffuse steatosis. GALLBLADDER: Within normal limits. BILE DUCTS: Within normal limits. PANCREAS: Within normal limits. SPLEEN: Within normal limits. ADRENALS: Within normal limits. KIDNEYS/URETERS: Within normal limits. BLADDER: Within normal limits. REPRODUCTIVE ORGANS: Hysterectomy. BOWEL: No evidence of bowel obstruction or acute bowel inflammation. The appendix is not visible; however, no right lower quadrant inflammatory changes are present. PERITONEUM/RETROPERITONEUM: No free intraperitoneal air or fluid. No significant lymphadenopathy. VESSELS: Atherosclerosis. ABDOMINAL WALL: Within normal limits. BONES: Spinal degenerative changes. Impression : No acute process in the abdomen or pelvis. DICTATION LOCATION: [address] TTE 09/20/23 STUDY CONCLUSIONS: SUMMARY: - Left ventricle: The cavity size was normal. Wall thickness was increased in a pattern of mild LVH. Global systolic function is normal. For Epic reporting: the left ventricular ejection fraction is 60% . - Mitral valve: Mild regurgitation. - Left atrium: The atrium is normal in size. - Right ventricle: The cavity size is normal. Systolic function is normal. - Tricuspid valve: Mild regurgitation. Carotid Dopplers 09/23/23 Impressions - Right internal carotid: Stenosis: There is a 0-49% stenosis, low end of range. There is hard plaque. - Left internal carotid: Stenosis: There is a 0-49% stenosis, low end of range. There is hard and calcified plaque. The bilateral vertebral arteries are patent with normal antegrade flow. Discharge Lab Data: Lab Results Component Value Date WBC 6.0 09/25/2023 HGB 11.4 (L) 09/25/2023 HCT 34.5 (L) 09/25/2023 PLT 194 09/25/2023 NA 140 09/25/2023 CL 104 09/25/2023 K 3.8 09/25/2023 CO2 26 09/25/2023 BUN 7 09/25/2023 CREAT 0.63 09/25/2023 GLUCOSE 144 (H) 09/25/2023 INR 0.9 09/14/2021 AST 41 (H) 09/25/2023 ALT 52 (H) 09/25/2023 CRP <3.0 07/10/2020 Discharge Exam: BP 110/49 (BP Location: Right arm, Patient Position (BP): Supine) Pulse 60 Temp 97.9 ??F (36.6 ??C) (Oral) Resp 14 Ht 5' 5 (1.651 m) Wt 86.2 kg (190 lb) SpO2 96% BMI 31.62 kg/m?? Exam: GENERAL: Alert and oriented, NAD HEENT: NCAT. EOMI. Oral mucosa moist. CARDIOVASCULAR: RRR, no m/r/g PULMONARY: CTAB, no w/r/r ABDOMEN: SNT, Bsx4. No masses or organomegaly NEURO: A&Ox3. No focal deficits. Moves all extremities spontaneously. EXTREMITIES: Atraumatic. No pedal edema. Nutritional status and in-house recommendations: Current Diet and/or Nutritional Supplementation ordered: DIET FAT CONTROL Nutrition Diagnosis: No findings (09/20/232199) Subcutaneous Fat Loss Assessment: No findings (09/20/232199) Muscle Wasting Assessment: No findings (09/20/232199) Percentage of Energy: < 50% for > or equal to 5 days (severe-acute) (09/20/232199) Percentage of Weight Loss: No history of significant wt loss (09/20/232199) Discharge Condition: improving More than 30 minutes were spent in this discharge activity. Kortney Ray DO documented in this encounter Discharge Instructions * Discharge Instructions* Kortney Ray DO - 09/25/2023 6:53 AM CDT Your discharging physician is Kortney Ray DO and may be reached at [phone] for any questions or concerns until you see your doctor. FOLLOW-UP Follow up with Guerrero Middleton PA-C in 5 day(s). Prescriptions given? Insulin orders changed: Decrease your tresiba to 20units per day. Decrease your mealtime insulin to 5units with meals. Monitor your blood sugars. As your appetite increases your insulin needs will likely go up- please contact Dr. Gates to guide you how to adjust your insulin. SIGNS AND SYMPTOMS TO REPORT Contact your health care provider if you experience any of the following symptoms: blood glucose results greater than 400, blood glucose results less than 70, or unable to keep food or fluids down orany other concerning symptoms. Heart Patients: Weigh yourself everyday at the same time, with the same amount of clothing and after you have emptied your bladder. Keep a log of your daily weights and bring them with you to your physician appointments. Call your physician (*) if you have a weight gain of 3 pounds in one day (or 5pounds in 2+ days) or (*) if you have increased shortness of breath or (*) if you have swelling in your feet, belly or legs. <<<Call 911 or go to the nearest emergency room if you have increased shortness of breath or chest pain or discomfort that is not relieved by nitroglycerin. Smoking Exposure: [facility] encourages all patients to decrease risks associated with smoking and second hand smoke exposure. If you smoke you are advised to quit. Ask your health care provider for advice if you need assistance to stop smoking. Avoid second-hand smoke exposure and do not let people smoke in your home. Please call [phone], our pulmonary rehabilitation department, to learn more about options to reduce your risks. ACTIVITY Your activity level is: no smoking. You may return to work/school in 3 day(s). DIET Your diet is: Diabetic diet (specify calories / restrictions) (You May Cut This Section Out to Present to Your Employer, It Serves as a Return to Work/School Statement) To Whom It May Concern: Work/School Release Casandra Doss was admitted to [facility] on 09/19/2023 and discharged on 09/25/2023 fora medical condition. She may return to work in 3 Days with no restrictions. Please feel free to call me with any questions. Kortney Ray DO [facility] this encounter Medications at Time of Discharge Medication Sig Dispensed Refills Start Date End Date ondansetron (ZOFRAN ODT) 4 mg Tablet, Rapid Dissolve Take 1 Tablet (4 mg) by mouth every 6 hours as needed for Nausea/Emesis. 30 Tablet 09/26/20[address] jlhnof-obbkppnt-qsamn se DR (Creon) 36,000-114,000-180,00 0 unit capsule Take 2 Capsules [...] 90 mg by mouth 2 times daily. atorvastatin (LIPITOR) 40 mg tablet Take 80 mg by mouth daily. Blood-Glucose Sensor (Dexcom G7 Sensor) Device 05/13/2023 pantoprazole (PROTONIX) 40 mg Tablet, Delayed Release (E.C.) Take 40 mg by mouth daily. fenofibrate (LOFIBRA) 160 [...] as of this encounter Progress Notes * Kortney Ray DO - 09/25/2023 9:04 AM CDT [facility] Adult Hospitalist Progress Note Admit Date: 09/19/2023 Date of Note: 09/25/2023, 9:04 AM LOS: 6 days Assessment and Plan: Active Problems: Acute on chronic pancreatitis- 2/2 hypertriglyceridemia. Still having nausea, but CLD went well yesterday. Off insulin gtt. Trial low fat diet today. Continue Creon. Still having some abdominal pain. Hypertriglyceridemia- prior on inuslin gtt, now off. Continue statin, fibrate. Follows with endocrine as OP. Recurrent syncope- suspect due to overall volume status. TTE and carotid dopplers negative. 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 Current regimen Lantus 15u qAM, Humalog 5u TID AC, lowered due to little PO intake. Glycemic control is adequate. Continue to titrate for goal BG 140-180. Avoid hypo/hyperglycemia. CAD- continue ASA, statin, BB, Brilinta. Obesity- Body mass index is 31.62 kg/m??. Bariatric equipment as needed. Weight based dosing of medications as needed. Complicates all aspects of care. Encourage healthy active lifestyle as OP. Family communication: attempted to update spouse unable to reach. Case was discussed with social work staff regarding disposition planning, bedside RN about plan of care. Nutrition: Current Diet and/or Nutritional Supplementation ordered: DIET FAT CONTROL Nutrition Diagnosis: No findings (09/20/232199) Subcutaneous Fat Loss Assessment: No findings (09/20/232199) Muscle Wasting Assessment: No findings (09/20/232199) Percentage of Energy: < 50% for > or equal to 5 days (severe-acute) (09/20/232199) Percentage of Weight Loss: No history of significant wt loss (09/20/232199) Quality/Safety/Core Measures/Disposition Planning: DVT Prophylaxis - Enoxaparin PT POC OT POC Pettit catheter:absent Current Code Status -Full Code Plan discussed with patient, questions answered. Estimated Discharge Day: 09/26/2023 Current Planned Disposition - Dispo: home pending tolerating diet, anticipate tomorrow. Subjective Previous history of present illness and review of systems have been reviewed today as documented inthe H&P on 09/19/2023; medications, labs, studies, notes, orders and consults have been reviewed. I have reviewed the notes from admission. Overnight no acute events. Tolerated some of low fat diet well, other parts caused pain. Discussed dispo planning- will wait another day to see abdominal pain improve. Objective BP 113/48 (BP Location: Left arm, Patient Position (BP): Lying right side) Pulse 61 Temp 97.9 ??F (36.6 ??C) (Oral) Resp 14 Ht 5' 5 (1.651 m) Wt 86.2 kg (190 lb) SpO2 94% BMI 31.62 kg/m?? Temp (24hrs), Av.1 ??F (36.7 ??C), Min:97.9 ??F (36.6 ??C), Max:98.4 ??F (36.9 ??C) Exam: GENERAL: Alert and oriented, NAD HEENT: NCAT. EOMI. Oral mucosa moist. CARDIOVASCULAR: RRR, no m/r/g PULMONARY: CTAB, no w/r/r ABDOMEN: Tender on left quadrants, epigastrium NEURO: A&Ox3. No focal deficits. Moves all extremities spontaneously. EXTREMITIES: Atraumatic. No pedal edema. Data: I have reviewed all new labs and studies resulted and independently interpreted below. Kortney Ray DO Please contact me via [employer] Secure Chat from 7am-7pm After hours please place E-ticket to [facility] * Vicki Pride RN - 09/25/2023 4:22 AM CDT The pt has rested well this shift in between care, pt A&O x4, currently on room air, medicated per JUN. Resting in bed with eyes closed at this time. NAD. * Brandi Macias RN - 09/24/2023 9:05 PM CDT Patient transferred to med surg 6. Report given to RN. VSS. * Gloria Sherman GN - 09/24/2023 3:58 PM CDT Pt with frequent abdominal pain, medicated per MAR. VSS. Up to BSC with assistance, AUO. Diet advanced to fat controlled. No BM this shift, pt started on bowel regimen. Bilateral subclavian ports un-accessed. * Afua John RD - 09/24/2023 12:23 PM CDT Images from the original note were not included. CLINICAL DIETITIAN PROGRESS NOTE [facility] Follow Up Nutrition Assessment Diet advance to Low Fat, pt ate cereal and banana at breakfast, lunch foods were too heavy and pt did not eat. Will send Bengali Yogurt with dinner meals. Discussed ordering breakfast foods at lunch and lead press operator foods at dinner. Assessment: Recent Labs 09/22/2331 09/22/23 2344 TRIGLYCERIDE [phone]* 859* POC [id number].-[id number] Pert Meds.- lipitor, colace, lofibra, insulin glargine, humalog, synthroid, creon, zofran, protonix, senokot Skin: intact Chin Score: 18 (09/24/23 09) Edema - none Anthropometrics: Height: 5' 5 (165.1 cm) (09/18/232135) Weight: 86.2 kg (190 lb) (09/18/232135) Body mass index is 31.62 kg/m??. Last Bowel Movement (mm/dd/yyyy): 09/23/23 (09/23/23 1445) Nutrition Prescription: DIET FAT CONTROL Food/Meal: Breakfast (09/24/23 0900) Diet/Feeding Tolerance: fair (09/24/23 0900) D: Same/ Inadequate oral intake, Altered GI function I:Nutrition Intervention: DIET FAT CONTROL Bengali yogurt at dinner, if pt tolerates she will order it at other meals. Goal: Consume 75% of meals/ supplements M/E: 1. Continue to monitor: Anthropometrics, Digestive, Skin, and Biochemical data 2. Follow up every 4-7 days and as needed. Time spent: [address] LD [phone] Available by secure chat * Flor Kortney Pena, - 09/24/2023 10:14 AM CDT [facility] Adult Hospitalist Progress Note Admit Date: 09/19/2023 Date of Note: 09/24/2023, 10:14 AM LOS: 5 days Assessment and Plan: Active Problems: Acute on chronic pancreatitis- 2/2 hypertriglyceridemia. Still having nausea, but CLD went well yesterday. Off insulin gtt. Trial low fat diet today. Continue Creon. Hypertriglyceridemia- prior on inuslin gtt, now off. Continue statin, fibrate. Follows with endocrine as OP. Recurrent syncope- suspect due to overall volume status. TTE and carotid dopplers negative. 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 Current regimen Lantus 15u qAM, Humalog 5u TID AC, lowered due to little PO intake. Glycemic control is adequate. Continue to titrate for goal BG 140-180. Avoid hypo/hyperglycemia. CAD- continue ASA, statin, BB, Brilinta. Obesity- Body mass index is 31.62 kg/m??. Bariatric equipment as needed. Weight based dosing of medications as needed. Complicates all aspects of care. Encourage healthy active lifestyle as OP. Family communication: updated spouse José Miguel via telephone regarding current plan of care. Case was discussed with social work staff regarding disposition planning, bedside RN about plan of care. Nutrition: Current Diet and/or Nutritional Supplementation ordered: DIET FAT CONTROL Nutrition Diagnosis: No findings (09/20/232199) Subcutaneous Fat Loss Assessment: No findings (09/20/232199) Muscle Wasting Assessment: No findings (09/20/232199) Percentage of Energy: < 50% for > or equal to 5 days (severe-acute) (09/20/232199) Percentage of Weight Loss: No history of significant wt loss (09/20/232199) Quality/Safety/Core Measures/Disposition Planning: DVT Prophylaxis - Enoxaparin PT POC OT POC Pettit catheter:absent Current Code Status -Full Code Plan discussed with patient, questions answered. Estimated Discharge Day: 09/25/2023 Current Planned Disposition - Dispo: home pending tolerating diet, anticipate tomorrow. Subjective Previous history of present illness and review of systems have been reviewed today as documented inthe H&P on 09/19/2023; medications, labs, studies, notes, orders and consults have been reviewed. I have reviewed the notes from admission. Overnight no acute events. Tolerated CLD well. Called RN for bedside plan of care visit, unable to reach. Objective BP 119/79 Pulse (!) 59 Temp 97.8 ??F (36.6 ??C) (Oral) Resp 8 Ht 5' 5 (1.651 m) Wt 86.2 kg (190 lb) SpO2 99% BMI 31.62 kg/m?? Temp (24hrs), Av.2 ??F (36.8 ??C), Min:97.8 ??F (36.6 ??C), Max:98.4 ??F (36.9 ??C) Exam: GENERAL: Alert and oriented, NAD HEENT: NCAT. EOMI. Oral mucosa moist. CARDIOVASCULAR: RRR, no m/r/g PULMONARY: CTAB, no w/r/r ABDOMEN: Tender on left quadrants NEURO: A&Ox3. No focal deficits. Moves all extremities spontaneously. EXTREMITIES: Atraumatic. No pedal edema. Data: I have reviewed all new labs and studies resulted and independently interpreted below. Kortney Ray DO Please contact me via [employer] Secure Chat from 7am-7pm After hours please place [facility] * Gloria Sherman GN - 09/24/2023 7:45 AM CDT Images from the original note were not included. [facility] Adult Therapeutic Orders Protocol [facility] Approved by: [facility] - Medical Executive Committee Approval Date: 04/18/2023 ORDERS ARE ENTERED ???PER PROTOCOL?? Enter the protocol in the patient's electronic health record using smartphrase:.nursingtheraputicordersprotocol For adult inpatients with complaints of minor discomfort Nursing Orders: [id number] Ice Pack/Cold Therapy 20 minutes every 2 hours to affected area. [id number] Warm Compress/Heat to affected area 20 minutes every 8 hours to affected area. Medication Orders: Docusate sodium (COLACE) capsule 100 mg, Oral two times daily for stool softening except for patients with diagnosed or rule-out bowel obstruction. calcium carbonate (TUMS) chewable tablet. 400mg, Oral every 4 hours PRN for heartburn. simethicone (MYLICON) tablet. 160 mg Oral four times daily PRN for gas. Neomycin-Bacitracin Zn-Polymyxin (NEOSPORIN) topical ointment. 1 packet, One Time to affected area.For minor scraps/abrasions. Use cover dressing as needed. Polyvinyl alcohol-povidon(PF) (REFRESH CLASSIC) 1.4-0.6% ophthalmic solution. 1 drop to affected eye every 4 hours PRN for dry eye. Sodium chloride (OCEAN) 0.65% nasal solution. 2 sprays to affected nostril every 15 minutes PRN forcongestion. If symptoms persist or worsen contact provider for further orders * Brandi Macias RN - 09/24/2023 7:36 AM CDT Shift note: Neuro: x4. CV: NSR (70s). Bp (110-130). Afebrile. 05/30. Subq heparin. Resp: RA. GI: Clear liquids. : AUO per BSC. Pain/Delirium/Sleep: Pt complains of pain - medicated per MAR. Sleeping between care. Activity: Standby. Self turn. * Parviz Sanabria MD - 09/23/2023 6:05 PM CDT Assessment/Plan of Actively Managed Problems Epigastric pain with hx of chronic pancreatitis-cont pain control. Cont clear liquids. 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 Cont statin and fenofibrate. TG's downto 743. Stop insulin gtt. DM-2 with hyperglycemia and shelter insulin use-cont Lantus 15 and premeal 5 plus correction. Chest/upper abdomen discomfort-troponins not consistent with ACS. Echo with preserved wall motion and normal global systolic fn Recurrent syncope-continue lower dose metoprolol. Echo reassuring. Carotid u/s negative. Syncope may relate to relative volume depletion with her GI issues and metoprolol. Follow telemetry CAD of [place] heart [place] artery without angina-cont asa, statin, bb and brilinta Nutrition: Current Diet and/or Nutritional Supplementation ordered: DIET CLEAR LIQUID Nutrition Diagnosis: No findings (09/20/232199) Subcutaneous Fat Loss Assessment: No findings (09/20/232199) Muscle Wasting Assessment: No findings (09/20/232199) Percentage of Energy: < 50% for > or equal to 5 days (severe-acute) (09/20/232199) Percentage of Weight Loss: No history of significant wt loss (09/20/232199) DVT Prophylaxis - Heparin Pettit catheter:absent Lines: Peripheral IV PT/OT:no Current Code Status -Full Code Plan discussed with patient, questions answered. Current Planned Disposition - home which I anticipate will be completed in 2-3 days. Transfer out of [facility] Adult Hospitalist Progress Note Admit Date: 09/19/2023 Date of Note: 09/23/2023, 6:05 PM LOS: 4 days Previous history of present illness and review of systems have been reviewed today as documented inthe H&P on 09/19/2023; medications, labs, studies, notes, orders and consults have been reviewed. I have reviewed the notes from yesterday. Subjective: Seen earlier this afternoon Lightheadedness better. Still having abdominal pain Objective: BP 132/67 (BP Location: Left arm, Patient Position (BP): Sitting) Pulse 68 Temp 98.1 ??F (36.7 ??C) (Oral) Resp 18 Ht 5' 5 (1.651 m) Wt 86.2 kg (190 lb) SpO2 98% BMI 31.62 kg/m?? Temp (24hrs), Av.2 ??F (36.8 ??C), Min:97.9 ??F (36.6 ??C), Max:98.4 ??F (36.9 ??C) Exam: General appearance alert, cooperative, no distress, appears stated age Lungs clear to auscultation bilaterally Heart regular rate and rhythm, S1, S2 normal, no murmur, click, rub or gallop Abdomen soft,epigastric tenderness Extremities extremities no edema Data Base: I have reviewed all new labs and studies resulted and pertinent ones are noted below Discussion today included discussion of expected course of disease, discussion of prognosis, discharge planning, coordination of care, and discussion of lab and test results. Parviz Sanabria MD [facility] Hospitalist P: Please check the [facility] Trackboard and then send a secure chat from 7a-7p. Send a virtual ticket or call the hospitalist recreational specialist pager at [phone] from 7p-7a O: [phone] * Alize Alamo RN - 09/22/2023 2:40 PM CDT Pt home medication [id number]-[id number] DR MAGUIRE) brought in and verified by pharmacy. 96 Pillscounts by this RN and Nataliia OLGUIN. Medication locked up in med cabinet for future administration. * Parviz Sanabria MD - 09/22/2023 1:56 PM CDT Assessment/Plan of Actively Managed Problems Epigastric pain with hx of chronic pancreatitis-cont pain control. Start clear liquids. Her home creon dosing when brought in by family. 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 Cont statin and fenofibrate. TG's downto 743. Stop insulin gtt. DM-2 with hyperglycemia and shelter insulin use-start Lantus 15 and premeal 5 plus correction. Chest/upper abdomen discomfort-troponins not consistent with ACS. Echo with preserved wall motion and normal global systolic fn Recurrent syncope-continue lower dose metoprolol. Echo reassuring. Check carotid u/s. Follow telemetry CAD of [place] heart [place] artery without angina-cont asa, statin, bb and brilinta Nutrition: Current Diet and/or Nutritional Supplementation ordered: DIET CARDIAC Low Cholesterol (AHA),; Diabetic,; 2GM Sodium (Low), Nutrition Diagnosis: No findings (09/20/232199) Subcutaneous Fat Loss Assessment: No findings (09/20/232199) Muscle Wasting Assessment: No findings (09/20/232199) Percentage of Energy: < 50% for > or equal to 5 days (severe-acute) (09/20/232199) Percentage of Weight Loss: No history of significant wt loss (09/20/232199) DVT Prophylaxis - Heparin Pettit catheter:absent Lines: Peripheral IV PT/OT:no Current Code Status -Full Code Plan discussed with patient, questions answered. Current Planned Disposition - home which I anticipate will be completed in 1-2 days. [facility] Adult Hospitalist Progress Note Admit Date: 09/19/2023 Date of Note: 09/22/2023, 1:56 PM LOS: 3 days Previous history of present illness and review of systems have been reviewed today as documented inthe H&P on 09/19/2023; medications, labs, studies, notes, orders and consults have been reviewed. I have reviewed the notes from yesterday. Subjective: Had some broth and tea tolerated. Had pain with crackers. Did not creon Objective: BP 104/73 (BP Location: Left arm, Patient Position (BP): Supine) Pulse 69 Temp 98 ??F (36.7 ??C) (Oral) Resp 13 Ht 5' 5 (1.651 m) Wt 86.2 kg (190 lb) SpO2 96% BMI 31.62 kg/m?? Temp (24hrs), Av.9 ??F (36.6 ??C), Min:97.6 ??F (36.4 ??C), Max:98.3 ??F (36.8 ??C) Exam: General appearance alert, cooperative, no distress, appears stated age Lungs clear to auscultation bilaterally Heart regular rate and rhythm, S1, S2 normal, no murmur, click, rub or gallop Abdomen soft,epigastric tenderness Extremities extremities no edema Data Base: I have reviewed all new labs and studies resulted and pertinent ones are noted below Discussion today included discussion of expected course of disease, discussion of prognosis, discharge planning, coordination of care, and discussion of lab and test results. Parviz Sanabria MD [facility] Hospitalist P: Please check the [employer] Trackboard and then send a secure chat from 7a-7p. Send a virtual ticket or call the hospitalist recreational specialist pager at [phone] from 7p-7a O: [phone] * Parviz Sanabria MD - 09/21/2023 2:52 PM CDT Assessment/Plan of Actively Managed Problems Epigastric pain with hx of chronic pancreatitis-cont pain control. Cont insulin gtt. TG's are decreasing. 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 Cont statin and fenofibrate. Continue insulin gtt. TG's coming down DM-2 with hyperglycemia and shelter insulin use-insulin gtt with d5 1/2 ns. Chest/upper abdomen discomfort-troponins not consistent with ACS. Echo with preserved wall motion and normal global systolic fn Recurrent syncope-continue lower dose metoprolol. Echo reassuring. Check carotid u/s. Follow telemetry CAD of [place] heart [place] artery without angina-cont asa, statin, bb and brilinta Nutrition: Current Diet and/or Nutritional Supplementation ordered: DIET NPO Sips w/Meds, Nutrition Diagnosis: No findings (09/20/232199) Subcutaneous Fat Loss Assessment: No findings (09/20/232199) Muscle Wasting Assessment: No findings (09/20/232199) Percentage of Energy: < 50% for > or equal to 5 days (severe-acute) (09/20/232199) Percentage of Weight Loss: No history of significant wt loss (09/20/232199) DVT Prophylaxis - Heparin Pettit catheter:absent Lines: Peripheral IV PT/OT:no Current Code Status -Full Code Plan discussed with patient, questions answered. Current Planned Disposition - home which I anticipate will be completed in 1-2 days. [facility] Adult Hospitalist Progress Note Admit Date: 09/19/2023 Date of Note: 09/21/2023, 2:52 PM LOS: 2 days Previous history of present illness and review of systems have been reviewed today as documented inthe H&P on 09/19/2023; medications, labs, studies, notes, orders and consults have been reviewed. I have reviewed the notes from yesterday. Subjective: Saw this morning. Stood up and had some dizziness this morning. Noting R sided headache. Some abd pain Objective: BP 138/67 (BP Location: Left arm, Patient Position (BP): Supine) Pulse 72 Temp 97.9 ??F (36.6 ??C) (Oral) Resp 13 Ht 5' 5 (1.651 m) Wt 86.2 kg (190 lb) SpO2 98% BMI 31.62 kg/m?? Temp (24hrs), Av.9 ??F (36.6 ??C), Min:97.7 ??F (36.5 ??C), Max:98.5 ??F (36.9 ??C) Exam: General appearance alert, cooperative, no distress, appears stated age Lungs clear to auscultation bilaterally Heart regular rate and rhythm, S1, S2 normal, no murmur, click, rub or gallop Abdomen soft,epigastric tenderness Extremities extremities no edema Data Base: I have reviewed all new labs and studies resulted and pertinent ones are noted below Discussion today included discussion of expected course of disease, discussion of prognosis, discharge planning, coordination of care, and discussion of lab and test results. Parviz Sanabria MD [facility] Hospitalist P: Please check the [facility] Trackboard and then send a secure chat from 7a-7p. Send a virtual ticket or call the hospitalist recreational specialist pager at [phone] from 7p-7a O: [phone] * Ligia Higuera, RD - 09/20/2023 10:45 PM CDT Images from the original note were not included. CLINICAL DIETITIAN PROGRESS NOTE [facility] Nutrition Risk Screen: hx malnutrition Epigastric pain with hx of chronic pancreatitis-cont pain control, DM, syncope Food and Nutrition Related History: NPO at this time. Pt said she wasn't eating much recently. She said she can't have anything with artificial sweeteners, they give her a migraine, so she can't do the Ensure Max. She does like occitan yogurt. No weight loss noted. Assessment: Past Medical History: Diagnosis Date Anxiety Chylomicronemia syndrome Chylomicronemia syndrome Depression Diabetes mellitus DM type 2 (diabetes mellitus, type 2) Family history of diabetes mellitus 05/15/2011 Family history of early CAD 05/15/2011 GERD (gastroesophageal reflux disease) High triglycerides History of gestational diabetes 05/15/2011 HLD (hyperlipidemia) Hypothyroidism Metabolic syndrome 05/15/2011 Pancreatitis PCOS (polycystic ovarian syndrome) 05/15/2011 Smoker Lab Results Component Value Date/Time NA 136 09/20/2023 04:06 AM K 4.1 09/20/2023 04:06 AM CL 102 09/20/2023 04:06 AM BUN 11 09/20/2023 04:06 AM CREAT 0.48 (L) 09/20/2023 04:06 AM GLUCOSE 102 (H) 09/20/2023 04:06 AM CA 8.4 (L) 09/20/2023 04:06 AM ALBUMIN 3.7 09/20/2023 04:06 AM GFR >60 09/20/2023 04:06 AM MG 1.7 09/16/2021 04:16 AM PO4 2.5 02/27/2020 08:42 AM Lab Results Component Value Date/Time HGBA1C 9.7 (H) 09/18/2023 10:18 PM Pert Meds: lipitor, insulin, zofran Skin: no breakdown noted Anthropometrics: Height: 5' 5 (165.1 cm) (09/18/232135) Weight: 86.2 kg (190 lb) (09/18/232135) Body mass index is 31.62 kg/m??. [place] body weight: 57 kg (125 lb 10.6 oz) Adjusted ideal body weight: 68.7 kg (151 lb 6.4 oz) Admit weight: Weight: 86.2 kg (190 lb) (09/18/232135) Nutrition Prescription: DIET NPO Sips w/Meds, Diet/Feeding Tolerance: nauseated (09/20/23211) Nutrition intake none Food Allergies: stephens pepper, artifical sweetners D: Inadequate oral intake r/t decreased appetite to consume sufficient energy as evidenced by per Pt Percentage of Energy: < 50% for > or equal to 5 days (severe-acute) (09/20/232199) Percentage of Weight Loss: No history of significant wt loss (09/20/232199) Subcutaneous Fat Loss Assessment: No findings (09/20/232199) Muscle Wasting Assessment: No findings (09/20/232199) I:Nutrition Intervention: When diet starts will monitor po intake. DIET NPO Sips w/Meds, Goal: Initiation of nutrition/diet M/E: 1. Continue to monitor: Anthropometrics, Digestive, Skin, and Biochemical data 2. Follow up every 4-7 days and as needed. Time spent: 15 minutes Ligia ANDRADE Can be reached via [employer] secure chat * Alize Alamo RN - 09/20/2023 6:27 PM CDT End of Shift Note: Patient rested in bed and slept between care. Patient complained of pain ranging from 6-10 throughout the day. Pain located in abdomen on left side. Medication given per MAR. Neuro: A&O x4 Resp: RA with clear lung sounds in all [place] CV: NS, HR 60-70s. SBP 100-120s. MAPs in the 80s. Pulses 2/2. Lovenox. 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 See results for range : Voided per BSC Skin: No skin issues noted at this time Sleep Evaluation: Rested between care Medication titrations/Procedures/Labs/Diagnostic Tests: Insulin drip titrated per MAR. Patient Goals Not Met: Pt NPO due to insulin gtt needed for Triglycerides. Variance in nutritional intake at this time. Problem: Nutrition/Endocrine Goal: Achieve optimal nutrition and fluid status to meet metabolic needs throughout hospitalization Outcome: Variance * Parviz Sanabria MD - 09/20/2023 1:28 PM CDT Assessment/Plan of Actively Managed Problems Epigastric pain with hx of chronic pancreatitis-cont pain control. Cont insulin gtt. TG's are decreasing. 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 Cont insulin gtt until TG's <1000. Cont statin and fenofibrate DM-2 with hyperglycemia and buttermaker insulin use-insulin gtt with d5 1/2 ns. Chest/upper abdomen discomfort-troponins not consistent with ACS. Echo with preserved wall motion and normal global systolic fn Recurrent syncope-continue lower dose metoprolol. Echo reassuring. Check carotid u/s. Follow telemetry CAD of [place] heart [place] artery without angina-cont asa, statin, bb and brilinta Nutrition: Current Diet and/or Nutritional Supplementation ordered: DIET NPO Sips w/Meds, DVT Prophylaxis - Enoxaparin Pettit catheter:absent Lines: Peripheral IV PT/OT:no Current Code Status -Full Code Plan discussed with patient, questions answered. Current Planned Disposition - home which I anticipate will be completed in 1-2 days. [facility] Adult Hospitalist Progress Note Admit Date: 09/19/2023 Date of Note: 09/20/2023, 1:28 PM LOS: 1 day Previous history of present illness and review of systems have been reviewed today as documented inthe H&P on 09/19/2023; medications, labs, studies, notes, orders and consults have been reviewed. I have reviewed the notes from yesterday. Subjective: Sleeping on entry. Awakens easily. Epigastric pain 10/06. Noting issues with syncope Objective: BP 103/69 Pulse 63 Temp 97.6 ??F (36.4 ??C) (Oral) Resp 12 Ht 5' 5 (1.651 m) Wt 86.2 kg (190 lb) SpO2 95% BMI 31.62 kg/m?? Temp (24hrs), Av.7 ??F (36.5 ??C), Min:97.5 ??F (36.4 ??C), Max:98.1 ??F (36.7 ??C) Exam: General appearance alert, cooperative, no distress, appears stated age Lungs clear to auscultation bilaterally Heart regular rate and rhythm, S1, S2 normal, no murmur, click, rub or gallop Abdomen soft,epigastric tenderness Extremities extremities no edema Data Base: I have reviewed all new labs and studies resulted and pertinent ones are noted below Discussion today included discussion of expected course of disease, discussion of prognosis, discharge planning, coordination of care, and discussion of lab and test results. Parviz Sanabria MD [facility] Hospitalist P: Please check the [employer] Trackboard and then send a secure chat from 7a-7p. Send a virtual ticket or call the hospitalist recreational specialist pager at [phone] from 7p-7a O: [phone] * Jose Charles, [facility] - 09/20/2023 11:01 AM CDT Images from the original note were not included. [facility] Definity Protocol [facility] Approved by: [facility] - Medical Executive Committee Approval Date: 10/11/2022 ORDERS ARE ENTERED ???PER PROTOCOL?? Enter the protocol in the patient's electronic health record using smartphrase: .definityprotocol PURPOSE: DEFINITY?? is approved for intravenous use in patients with technically suboptimal echocardiograms to assist in left ventricular opacification, left ventricular endocardial border definition, and to offer other imaging enhancements to benefit the diagnostic value of the echocardiogram POLICY: Verify patient does not meet any of these exclusion criteria Allergy or hypersensitivity to DEFINITY?? or octafluoropropane Allergy or hypersensitivity to Polyethylene Glycol Is DEFINITY?? is not recommended while you are , however, is not a criteriafor exclusion. If patient is , formula feedings should be substituted for for one cycle following the administration of Definity. Breast milk produced within thattime should be discarded. Actively being supported by ECMO (extracorporeal membrane oxygenation) *Critical Care physicians can request use of DEFINITY?? on ECMO patients. The ECMO transfer car operator drier must bepresent when the DEFINITY ?? is administered and while images are being obtained. The ECMO operatorcan be reached at [address] [place] [address] ([phone] in [place]) If patient meets/states ???yes to any exclusion criteria, STOP THE PROCEDURE, and annotate exam accordingly Patient meets at least one of these inclusion criteria Credentialed provider request Patient is technically difficult to image ([place] Society [employer] Echocardi[employer] guidelines recommend use when 2 or more segments within the apical/parasternal short axis views are not discernable) The question of left ventricular function has been raised and/or suspicion for estimated ejection fraction being less than 35 percent, regardless of image quality Furthermore, DEFINITY?? use is strongly recommended by the ASE, when visualization of the endocardium is critical, particularly for use with stress echocardiography PROTOCOL: DEFINITY?? may be ordered by a credentialed provider, RN or imaging tech Educate patient or responsible democrat on DEFINITY?? indications and potential side effects and review procedure goals with the patient and/or caregiver Verify patient does not have any allergy or contraindications to receive DEFINITY?? or octaflouropropane and confirm Allergies by ???Marking as Reviewed?? in patient's chart Verify peripheral or central line IV access. If IV access is not available, then a trained imaging tech transcribing operator head may place peripheral IV access, as appropriate, for medication administration NOTE: Do NOTaccess dialysis catheter or arterial line catheter. Before activating DEFINITY??, allow the refrigerated vial to warm to room temperature Activate DEFINITY?? using the VialMix machine: Vial of DEFINITY?? should be vented prior to withdrawing medication (18g or 20g needle) and care should be taken to ensure that any excess air has been cleared from the syringe Dilute the DEFINITY?? in a syringe with 8.7 mL Normal Saline to make 10 mL Administer DEFINITY?? in small increments as needed to enhance visualization up to a total of 10 mLof the diluted DEFINITY?? DEFINITY?? vials may require resuspension and/or reactivation (see image below for further information) RN or trained imaging tech may discontinue peripheral IV access when IV no longer required for treatment DEFINITY? Activation/Reactivation1,6 If activated vial is not used within 5 minutes, resuspend with 10 seconds of hand agitation prior to use. DEFINITY? may be used for up to 12 hours after activation with VIALMIX??1 If not used within 12 hours, vial may be returned to refrigeration and reactivated once with VIALMIX?? within 24 hours6 Reactivated DEFINITY? may be used for up to 12 hours1,6 DOCUMENTATION: Change procedure order to include DEFINITY??, then END EXAM Verify that Allergies were reviewed and confirmed in patient's chart Document IV start and removal, if performed Order DEFINITY??, under Order Management in patient's chart Document DEFINITY?? administration under patient's MAR (Medication Administration Record) by going to MAR comment box, add 'Bolus diluted with 8.7 mL of NS. Patient tolerated well' (or list side effects) and link to correct IV line Add the protocol to the patient's electronic health record in a new note using smartImagination Technologiesrase: .DEFINITYprotocol * Mikala Estrella LPN - 09/20/2023 7:10 AM CDT Report received from previous nurse. Patient resting in bed with no acute s/s of distress. Personalitems and call light in reach with bed locked in lowest position. Alarm on. Denies other needs. 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 Completed search on PDMP, no active Rx for ativan in the last 2 yrs. Spoke with nurse Jonelle. She is c/o anxiety. Xanax 0.5mg PO x1 Brynn Castro APRN * Elke Boyer RN - 09/19/2023 5:48 PM CDT Shift note: Pt was a transfer from ICU. After arrival, pt needed to be started on insulin gtt. Transfer order were then placed to Med Surg stepdown. Report given to Genoveva. Neuro: A&O x4. Afebrile. Cardio: SR/SB. VSS. Resp: Maintains SpO2 >90% on RA. GI: No BM. : pt did not void on her stay on our floor. MS/Activity: SBA. Pain: As pt was preparing to transfer, pt c/o abdominal pain. PRN Oxycodone given. Notified receiving RN. Skin: Intact Roya Boyer RN, BSN [facility] [phone] documented in this encounter H&P Notes * Herlinda Medeors DO - 09/19/2023 7:43 AM CDT [facility] Adult Hospitalist H&P Patient Name: Casandra Doss 1975 Primary Care Doctor: Guerrero Middleton PA-C Date of Admission: 09/19/2023 Date of Service: 09/19/2023 Assessment and Plan: # Epigastric abdominal pain # Hx of chronic pancreatitis: lipase WNL although has similar sx as prior pancreatitis episodes and per chart review has a hx of what was thought to be pancreatitis in thepast with normal lipase/imaging as well; will order CT A/P for further evaluation; pain control with tylenol, oxy 5mg q4h prn, IV dilaudid 0.3mg q4h prn; NPO with IVF # Chylomicronemia syndrome # HLD: elevated triglyceride level 3500s; per discussion with endocrinology will start on insulin gtt for now until TG level <1000 and will monitor TG q12h; continue PTAASA, atorvastatin, fenofibrate; if not improving may need to consider plasma exchange (has receivedon prior admission; per pt last received exchanged ~1 month ago) # DM2: A1c 9.7%; holding [employer] metformin; [employer] on tresiba 34u qd and aspart 5u with snacks/10u with meals and SSI; sugars today in the 180s and got 1x glargine 10u which will hold currently as per discussion with endocrinology will start on insulin gtt with D51/2NS given elevated TG level; will move to TCU for insulin gtt # Occasional chest/upper abd discomfort: troponin negative x3; EKG w/o significant ST-T wave changes; will order TTE to evaluate for WMA; consider cardiology consult if no improvement with treating GI sx # Recurrent syncope: per pt has been occurring the last few months and has had workup outpatient although unable to view; possibly orthostatic as she reports sx occurring when changing position/standing vs other; wlil decrease [employer] metoprolol from 25->12.5mg qd; f/u orthostatic VS; f/u TTE; monitor on telemetry # CAD s/p stents 06/2023: unable to view OSH records although she did bring a CD in with her; continue [employer] ASA, atorvastatin, brillinta, metoprolol suc (changed from 25->12.5mg qd while monitoringBP); per phone call to pt's pharmacy last brillinta was picked up 07/15 for 30 d supply but pt reports that she has not missed a dose as she received samples and was also intermittently hospitalized; has plans to follow up outpatient with cardiology # GERD: continue [employer] PPI # Hypothyroidism: continue [employer] levothyroxine DVT Prophylaxis Enoxaparin Code status: full Disposition: This patient was admitted under Inpatient: Based upon the patient's clinical conditionand documented clinical information, the patient is expected to require hospital care that crosses 2 midnights or more. Chief Complaint: abd pain, recurrent syncope HPI: Patient is a 47 y.o. female with PMHx of chronic pancreatitis, chylomicronemia syndrome, CAD s/p stents 06/2023 who presents with multiple complaints including epigastric abd pain and recurrent syncopal episodes. Per chart review in 06/2023 had presented to OSH with syncopal episodes and L sided chest pain s/p C with 3 stents placed and was started on brillinta. She states that since then her chest discomfort has improved a bit but there may be a 4th spot they did not stent. Over the last few months pt reports having fainting spells every few days and last one was yesterday. Reports they usually happen when she stands or stretches. Had ~2 additional OSH admissions (most recent 08/29-09/02 however unable to few records) and was to follow up with cardiology outpatient but is still awaiting appointment. Over the last 1-2 days has started having some epigastric abd pain and nausea and mild diarrhea that she believes is similar to howshe feels when she has pancreatitis. Has some occasional CORTES, HENDRIX, and mild chest burning. No emesis and no back pain. No blurry vision, sore throat, cough, SOB, dysuria, leg pain. Upon admission the pt was HD stable. Significant labs included elevated WBC 13, elevated plt 475, elevated gluc 170, elevated chol 470, elevated TG 3500, decreased Na 133. Lipase was WNL. Past Medical History: Diagnosis Date Anxiety Chylomicronemia [...] ESOPHAGOGASTRODUODENOSCOPY performed by Ceasar Vega MD at [facility] Family History Problem Relation Name Age of Onset Diabetes Father High Cholesterol Father Hypertension Father Stroke Mother Heart Disease Mother Thyroid Disease Mother High Cholesterol Mother Heart Disease Maternal Grandmother Diabetes Maternal Grandmother Diabetes Paternal Grandmother Diabetes Mother Social History Tobacco Use Smoking status: Every Day Current packs/day: 1.00 Average packs/day: 1 pack/day for 18.0 years (18.0 ttl pk-yrs) Types: Cigarettes Smokeless tobacco: Never Tobacco comments: nicotine patch requested Substance Use Topics Alcohol use: No Tobacco 1ppd <1; no etoh Prior to Admission Medications Prescriptions Last Dose Informant Patient Reported? Taking? Dexcom G6 Sensor Device No No Sig: Change sensor every 10 days. (9 sensors = 90 days) Dexcom G6 Transmitter Device No No Sig: Change transmitter every 90 days LORazepam (ATIVAN) 0.5 mg tablet Yes No Sig: Take 0.5 mg by mouth every 6 hours as needed for Anxiety. LORazepam (ATIVAN) 1 mg tablet No No Sig: Take 1 Tablet (1 mg) by mouth 2 times daily as needed for Anxiety. Tresiba FlexTouch U-200 200 unit/mL (3 mL) pen syringe No No Sig: Inject 62 Units by subcutaneous injection daily in the morning. Vascepa 1 gram Capsule No No Sig: TAKE 2 CAPSULES (2 GRAMS) BY MOUTH 2 TIMES DAILY WITH MEALS. atorvastatin (LIPITOR) 40 mg tablet Yes Yes Sig: Take 40 mg by mouth daily. citalopram (CeleXA) 40 mg tablet No No Sig: TAKE 1 TABLET BY MOUTH EVERY DAY citalopram (CeleXA) 40 mg tablet Yes Yes Sig: Take 40 mg by mouth daily. empagliflozin (Jardiance) 25 mg tablet No No Sig: TAKE 1 TABLET BY MOUTH EVERY PALLETIZER OPERATOR fenofibrate (LOFIBRA) 160 mg Tablet No No Sig: TAKE 1 TABLET BY MOUTH EVERY DAY insulin aspart U-100 (NovoLOG Flexpen U-100 Insulin) 100 unit/mL pen syringe No No Sig: INJECT APPROXIMATELY 50 UNITS A DAY PER CORRECTION DOSE WITH MEALS levothyroxine 200 mcg tablet No No Sig: Take 1 Tablet (200 mcg) by mouth daily. Once daily on an empty stomach levothyroxine 200 mcg tablet Yes Yes Sig: Take 200 mcg by mouth. metFORMIN (GLUCOPHAGE) 1,000 mg tablet No No Sig: TAKE 1 TABLET (1,000 MG) BY MOUTH 2 TIMES DAILY WITH MEALS. metFORMIN (GLUCOPHAGE) 500 mg tablet Yes Yes Sig: Take 500 mg by mouth 2 times daily. ondansetron (ZOFRAN ODT) 4 mg Tablet, Rapid Dissolve No No Sig: Dissolve 1 tablet on top of tongue, then swallow with saliva every 6 hours as needed for nausea/vomiting. pantoprazole (PROTONIX) 40 mg Tablet, Delayed Release (E.C.) Yes No Sig: Take 40 mg by mouth 2 times daily . pantoprazole (PROTONIX) 40 mg Tablet, Delayed Release (E.C.) Yes No Sig: Take 40 mg by mouth daily. rosuvastatin (CRESTOR) 20 mg tablet Yes No Sig: Take 20 mg by mouth daily at bedtime. traMADoL (ULTRAM) 50 mg tablet No No Sig: Take 1 Tablet (50 mg) by mouth every 6 hours as needed for Pain. traZODone (DESYREL) 100 mg tablet Yes No Sig: Take 100 mg by mouth daily at bedtime . varenicline (Chantix) 0.5 mg Tablet No No Sig: Take 1 Tablet (0.5 mg) by mouth 2 times daily. Facility-Administered Medications: None Allergies Allergen Reactions Adhesive Tape-Silicones Hives Stephens Pepper Hives Adhesive Unknown Aspartame Headache Review of Systems: Gen: No fever or chills Eyes: No visual changes Ears: No change in hearing Endocrine: No heat or cold intolerance Pulm: No cough or SOB Cardiac: No chest pain or orthopnea GI: No nausea, vomiting, constipation or diarrhea : No hematuria, urgency or frequency Musculoskeletal: No pain or weakness Neuro: No numbness or tingling Psych: No anxiety or depression Skin: No rashes or eruptions All other ROS reviewed and are negative Physical Exam: Patient Vitals for the past 8 hrs: BP Temp Temp src Pulse Resp SpO2 09/19/23 0648 119/72 -- -- 77 18 98 % 09/19/23 0455 114/68 98.1 ??F (36.7 ??C) Oral 80 18 96 % 09/19/23 0124 119/79 98.1 ??F (36.7 ??C) Oral 99 14 97 % General: Alert, no distress. Heart: Regular rate and rhythm, no murmur Lungs: Clear to auscultation bilaterally Abdomen: Soft, epigastric abd pain. Bowel sounds times four. Extremities: No clubbing, cyanosis or edema Skin: Skin color, texture, turgor normal. Head: Normocephalic, atraumatic Neck: Supple, symmetrical, trachea midline Neuro: Moving all extremities Data Base: Lab: Results for orders placed or performed during the hospital encounter of 09/19/23 (from the past 24 hour(s)) TROPONIN BASELINE, 5TH GEN Result Value Ref Range TROPONIN T, BASELINE 5TH GEN <6 <=10 ng/L CBC WITH DIFFERENTIAL Result Value Ref Range WBC 13.2 (H) 4.0 - 9.8 K/uL RBC 5.29 (H) 3.90 - 4.90 M/uL HEMOGLOBIN 15.3 (H) 11.8 - 14.8 g/dL HEMATOCRIT 44.8 (H) 35.5 - 44.0 % MCV 84.7 82.0 - 99.0 fL MCH 28.9 27.2 - 32.6 pg MCHC 34.2 31.5 - 35.5 g/dL RDW 15.1 (H) 11.5 - 14.5 % RDW-STDEV 45.4 37.1 - 48.7 fL PLATELETS 425 (H) 140 - 350 K/uL MPV 8.9 (L) 9.3 - 12.4 fL NEUTROPHILS 70 % LYMPHOCYTES 24 % MONOCYTES 4 % EOSINOPHILS 1 % BASOPHILS 1 % IMMATURE GRANULOCYTES 1 % NEUTROPHIL ABSOLUTE 9.19 (H) 1.90 - 7.00 K/uL LYMPHOCYTE ABSOLUTE 3.22 0.70 - 4.50 K/uL MONOCYTE ABSOLUTE 0.56 0.10 - 1.30 K/uL EOSINOPHIL ABSOLUTE 0.09 0.00 - 0.70 K/uL BASOPHILS ABSOLUTE 0.06 0.00 - 0.20 K/uL IMMATURE GRANULOCYTES ABSOLUTE 0.11 (H) 0.00 - 0.03 K/uL COMPREHENSIVE METABOLIC PANEL Result Value Ref Range SODIUM 133 (L) 136 - 145 mmol/L POTASSIUM 4.1 3.5 - 5.0 mmol/L CHLORIDE 94 (L) 98 - 107 mmol/L CO2 23 22 - 29 mmol/L CALCIUM 10.2 8.6 - 10.2 mg/dL BUN 19 6 - 20 mg/dL CREATININE 0.69 0.51 - 0.95 mg/dL GLUCOSE 173 (H) 74 - 99 mg/dL TOTAL PROTEIN 8.1 6.7 - 8.6 g/dL ALBUMIN 4.9 3.5 - 5.2 g/dL BILIRUBIN TOTAL 0.2 (L) 0.3 - 1.2 mg/dL ALKALINE PHOSPHATASE 100 35 - 104 U/L AST 16 <33 U/L ALT 20 <34 U/L GFR >60 >=60 mL/min/1.73 sq meter ANION GAP 16 8 - 16 mmol/L URINALYSIS WITH REFLEX MICROSCOPIC Result Value Ref Range COLOR UA Yellow Pale to Dark Yellow CLARITY UA Clear Clear SPECIFIC GRAVITY UA 1.026 1.003 - 1.035 PH UA 5.0 5.0 - 8.0 LEUKOCYTE ESTERASE UA Negative Negative NITRITE UA Negative Negative PROTEIN UA 1+ (A) Negative GLUCOSE UA 3+ (A) Negative KETONES UA Trace (A) Negative UROBILINOGEN UA 2.0 (A) <2.0 mg/dL BILIRUBIN UA Negative Negative BLOOD UA Negative Negative WBC UA 0-2 0 - 2 /hpf RBC UA 0-2 0 - 2 /hpf BACTERIA UA Negative Negative /hpf EPITHELIAL CELLS, URINE 0-5 0 - 5 /hpf TROPONIN 2 HR, 5TH GEN Result Value Ref Range TROPONIN T, 2 HR 5TH GEN <6 <=10 ng/L CHOLESTEROL TOTAL Result Value Ref Range CHOLESTEROL 470 (H) <200 mg/dL TRIGLYCERIDE Result Value Ref Range TRIGLYCERIDE 3,544 (H) <150 mg/dL LDL CHOLESTEROL, DIRECT Result Value Ref Range LDL CHOLESTEROL, DIRECT 47 <100 mg/dL HDL CHOLESTEROL Result Value Ref Range HDL 16 (L) 40 - 59 mg/dL LIPASE Result Value Ref Range LIPASE 40 13 - 60 U/L On the day of the visit, I spent 75 (1 hr 15 min) minutes providing care to this patient including Preparing to see the patient, Obtaining and/or reviewing separately obtained history, Performing a medically appropriate examination and/or evaluation, Counseling and educating the patient/family/caregiver, Ordering medications, tests or procedures, Documenting clinical information in the medical record, Referring and communication with other health tree care foreman (not separately reported), Independently interpreting results and communicating results to the patient/family/caregiver (not separately reported), Care coordination (not separately reported), and Excluding time spent performing separately billed procedures and/or services. Herlinda Mederos DO Please contact me via [employer] Secure Chat from 7am-7pm After hours please place E-ticket to [facility] documented in this encounter ED Notes * Ela Paul RN - 09/19/2023 8:52 AM CDT CLAU Pryor made aware of pt transport at this time. Vitals obtained and charted. * Marisol Hopkins RN - 09/19/2023 7:00 AM CDT This RN obtained VS, pt c/o increased abdominal pain at this time. This RN placed [employer] Virtual ticket for medication request. Pt is resting calmly on stretcher, airway patent, respirations non labored, NS infusing without difficulty. Pt informed of plan to await medication order, denies further needs. * Marislo Hopkins RN - 09/19/2023 4:57 AM CDT Chief Complaint Patient presents with syncope Pt presents with multiple syncopal episodes since 09/02 since d/c from OSH. Pt has hx of chronic pancreatitis d/t genetic condition causing high triglycerides and CT w/stents placed 06/2023. Pt has beenhaving CP, SOB, dizziness and upper gastric pain going on since discharge. Pt has referral to inspector general and specialist set up in November but unable to wait d/t the pain and weakness. Pt states the CP/abd pain is similar to previous pancreatitic episodes, but SOB/dizziness, syncope is new, This RN agrees with triage note. Pt is aox4, airway patent, respirations even and non labored, equal chest rise and fall. Pt c/o headache, abdominal pain on the left side that radiates to back, CP onleft side that feels like burning, and dizziness and lightheadedness at rest. Pt states that CP and abdominal pain started yesterday, endorses nausea, intermittent SOB. Pt denies SOB at this time, denies vision changes, numbness/tingling. Pt states that pain was unrelieved last night after [id number] Hydrocodone. Patient placed on continuous pulse oximetry, intermittent blood pressure and continuous cardiac monitoring. Stretcher locked with side rails raised. MD Felix, at bedside to assess pt, explain plan of care. Family is at bedside. * Yojana Washington MD - 09/19/2023 4:56 AM CDT HISTORY OF PRESENT ILLNESS Documented Triage Chief Complaint: Syncope 4:56 AM: Casandra Doss is a 47 y.o. female with a history of CAD, HLD, type 2 DM, GERD, chylomicronemia syndrome, PCOS, and chronic pancreatitis, who presents to the Emergency Department with multiple complaints. Patient reporting that she had been admitted at [facility] in [place], [place], on 07/10 after presenting there with syncopal episodes as well as some left sided chest pain radiating into left shoulder while she had been visiting family in that area. She reports having cardiac catheterization with stent placement x3 performed at that time, stating that she had been started on Brilinta for antico agulation afterwards. Since that initial hospitalization, patient reports that she was again hospitalized at outside facilities two additional times, most recently from 08/29 to 09/02. She states that there have been plans for her to follow up with Dr. Mayer with cardiology but that she will not be able to get in with them until November. There were also reportedly recommendations for further imaging studies of head/neck given concern for a blockage in my neck, but she states that these have not yet been obtained. Since her most recent hospitalization, patient reports that she has continued to have intermittent syncopal episodes every day or two. She is unsure of duration of these episodes but states that most of them seem to be triggered upon standing. She also reports some ongoing burning chest pains andshortness of breath, with these seeming to worsen with activity. She denies having any focal weakness or numbness/tingling lately. Yesterday, patient also began having some left upper abdominal pain which feels similar to what shehas had with prior pancreatitis flares, stating that she usually requires hospitalization with these and that she occasionally requires plasmapheresis for elevated triglycerides from her chylomicronemia syndrome. She has had some nausea and diarrhea with this abdominal pain. Given her ongoing cardiac symptoms with difficulty setting up close follow up as well as concern for newer pancreatitis flare, patient now presents to the ED to pursue further evaluation of each of these complaints. Physician(s): Guerrero Middleton PA-C History provided by: The patient, the spouse and medical records Arrived by: Private vehicle PAST MEDICAL HISTORY REVIEWED MEDICAL: Patient has a past medical history of Anxiety, Chylomicronemia syndrome, Chylomicronemia syndrome, Depression, Diabetes mellitus, DM type 2 (diabetes mellitus, type 2), Family history of diabetes mellitus (05/15/2011), Family history of early CAD (05/15/2011), GERD (gastroesophageal reflux disease), High triglycerides, History of gestational diabetes (05/15/2011), HLD (hyperlipidemia), Hypothyroidism, Metabolic syndrome (05/15/2011), Pancreatitis, PCOS (polycystic ovarian syndrome) (05/15/2011), andSmoker. SURGICAL: Patient has a past surgical history that includes hysterectomy; appendectomy; pr esophagogastroduodenoscopy transoral diagnostic (N/A, 03/08/2018); tunneled venous catheter placement (Right, 09/29/2018); tonsillectomy; and tunneled venous port placement (Left, 05/11/2019). ALLERGIES Adhesive tape-silicones, Stephens pepper, Adhesive, and Aspartame PHYSICAL EXAM INITIAL VS BP: 121/72 (09/18/232135), Heart Rate: (!) 103 bpm (09/18/232135), Resp: 18 (09/18/232135), Pulse: (!) 103 (09/18/232135), Temp: 99.3 ??F (37.4 ??C) (09/18/232135), Temp src: Oral (09/18/232135), SpO2: 100 % (09/18/232135), Height: 5' 5 (165.1 cm) (09/18/232135), Weight: 86.2 kg (190 lb) (09/18/232135), BMI (Calculated): (!) 31.62 (09/18/232135) No LMP recorded. Patient has had a hysterectomy. Physical Exam Constitutional: General: She is not in acute distress. HENT: Head: Normocephalic and atraumatic. Right Ear: Ear canal normal. Left Ear: Ear canal normal. Nose: Nose normal. Mouth/Throat: Mouth: Mucous membranes are moist. Eyes: Extraocular Movements: Extraocular movements intact. Pupils: Pupils are equal, round, and reactive to light. Cardiovascular: Rate and Rhythm: Normal rate and regular rhythm. Pulses: Normal pulses. Pulmonary: Effort: Pulmonary effort is normal. Breath sounds: Normal breath sounds. Abdominal: General: Abdomen is flat. Bowel sounds are normal. Palpations: Abdomen is soft. Tenderness: There is abdominal tenderness in the epigastric area. There is no guarding. Musculoskeletal: General: No swelling. Normal range of motion. Cervical back: Normal range of motion and neck supple. Skin: General: Skin is warm and dry. Neurological: General: No focal deficit present. Mental Status: She is alert. Comments: Moving all extremities Psychiatric: Mood and Affect: Mood normal. DIAGNOSTICS LAB: CBC WITH DIFFERENTIAL - Abnormal Result Value WBC 13.2 (*) RBC 5.29 (*) HEMOGLOBIN 15.3 (*) HEMATOCRIT 44.8 (*) MCV 84.7 MCH 28.9 MCHC 34.2 RDW 15.1 (*) RDW-STDEV 45.4 PLATELETS 425 (*) MPV 8.9 (*) NEUTROPHILS 70 LYMPHOCYTES 24 MONOCYTES 4 EOSINOPHILS 1 BASOPHILS 1 IMMATURE GRANULOCYTES 1 NEUTROPHIL ABSOLUTE 9.19 (*) LYMPHOCYTE ABSOLUTE 3.22 MONOCYTE ABSOLUTE 0.56 EOSINOPHIL ABSOLUTE 0.09 BASOPHILS ABSOLUTE 0.06 IMMATURE GRANULOCYTES ABSOLUTE 0.11 (*) COMPREHENSIVE METABOLIC PANEL - Abnormal SODIUM 133 (*) POTASSIUM 4.1 CHLORIDE 94 (*) CO2 23 CALCIUM 10.2 BUN 19 CREATININE 0.69 GLUCOSE 173 (*) TOTAL PROTEIN 8.1 ALBUMIN 4.9 BILIRUBIN TOTAL 0.2 (*) ALKALINE PHOSPHATASE 100 AST 16 ALT 20 GFR >60 ANION GAP 16 URINALYSIS WITH REFLEX MICROSCOPIC - Abnormal COLOR UA Yellow CLARITY UA Clear SPECIFIC GRAVITY UA 1.026 PH UA 5.0 LEUKOCYTE ESTERASE UA Negative NITRITE UA Negative PROTEIN UA 1+ (*) GLUCOSE UA 3+ (*) KETONES UA Trace (*) UROBILINOGEN UA 2.0 (*) BILIRUBIN UA Negative BLOOD UA Negative WBC UA 0-2 RBC UA 0-2 BACTERIA UA Negative EPITHELIAL CELLS, URINE 0-5 CHOLESTEROL TOTAL - Abnormal CHOLESTEROL 470 (*) TRIGLYCERIDE - Abnormal TRIGLYCERIDE 3,544 (*) HDL CHOLESTEROL - Abnormal HDL 16 (*) TROPONIN BASELINE, 5TH GEN - Normal TROPONIN T, BASELINE 5TH GEN <6 TROPONIN 2 HR, 5TH GEN - Normal TROPONIN T, 2 HR 5TH GEN <6 LDL CHOLESTEROL, DIRECT - Normal LDL CHOLESTEROL, DIRECT 47 LIPASE - Normal LIPASE 40 EXTRA TUBE EXTRA TUBE (BLUE) TROPONIN 6 HR, 5TH GEN RADIOLOGY: XR CHEST PA OR AP 1 VW Radiologist Impression IMPRESSION: No convincing evidence of active disease. DICTATION LOCATION: Location 1 - [facility] EKG: Rate 97. Sinus rhythm. Normal axis. Normal intervals. No significant ST or T wave changes. Possible left atrial enlargement. PROCEDURES Procedures MEDICAL DECISION MAKING AND PLAN OF CARE --Upon initial evaluation, discussed with patient the plan for symptomatic treatment as well as labs, imaging, and EKG. Will plan on admission for continued workup and management. Patient understandsand agrees with plan at this time. ED provider and ED nurse verbally discussed patient plan of care at this time. ED Course as of 09/19/23 0622 Katie September 19, 2023 0542 Spoke with ISMAEL Cavanaugh [facility], who agrees with plan for admission under their service. [JS] ED Course User Index [JS] Parviz Potts Scribe Medical Decision Making Summary: 47-year-old female with multiple medical problems including coronary artery disease with recent stent placement, and chylomicronemia with various complications here complaining of recurrent syncope as well as epigastric abdominal pain consistent with multiple prior episodes of pancreatitis. No chest pain. Exam with mild epigastric tenderness, the rest of her exam is reassuring. Neurologic exam is reassuring. Troponin negative x 2. Added on lipase as well as lipid testing. She was givenIV fluids, antiemetics, and pain control. She was admitted to telemetry for further workup and treatment Differential diagnosis includes, but is not limited to, acute coronary syndrome, vascular disease, pancreatitis, electrolyte abnormality, arrhythmia, dehydration, low suspicion for infection. By virtue of history and physical, some of these diagnoses can be excluded. Imaging was interpreted by me and notable for chest x-ray negative for acute disease. Non-ED notes reviewed: MRCP at [facility] 06/05/23. Additional information obtained from independent historian, at bedside. The following social determinants of health potentially complicated the patient's course and were considered in my plan of care: Concern for logistical barriers to care given patient's reports of difficulties scheduling follow up with cardiology. Amount and/or Complexity of Data Reviewed Labs: ordered. Radiology: ordered and independent interpretation performed. ECG/medicine tests: ordered and independent interpretation performed. Risk Prescription drug management. Decision regarding hospitalization. MDM Consults: hospitalist Medications Administered During the ED Stay from 09/18/20232034 to 09/19/2023 0622 Date/Time Order Dose Route Action 09/19/2023 0057 CDT ondansetron (ZOFRAN) 4 mg/2 mL injection 4 mg 4 mg IV Given 09/19/2023 0533 CDT hydromorPHONE (PF) (DILAUDID) 1 mg/mL syringe 0.5 mg 0.5 mg IV Given 09/19/2023 0537 CDT sodium chloride 0.9% bolus solution 1,000 mL 1,000 mL IV Bolus . New Prescriptions for this Encounter LAST VS BP: 114/68 (09/19/23454), Heart Rate: 80 bpm (09/19/23454), Resp: 18 (09/19/23454), Pulse: 80(09/19/23454), Temp: 98.1 ??F (36.7 ??C) (09/19/23454), Temp src: Oral (09/19/23454), SpO2: 96 % (09/19/23454) CLINICAL IMPRESSION Final diagnoses: [R55] Syncope and collapse (Primary) [K85.80] Other acute pancreatitis, unspecified complication status [I25.10] Atherosclerosis of coronary artery, unspecified vessel or lesion type, unspecified whetherangina present, unspecified whether [place] or transplanted heart [E78.3] Chylomicronemia syndrome DISPOSITION, EDUCATION AND MEDICATION RECONCILIATION Medications reconciled. See after visit summary for patient education on discharged patients. ED Disposition ED Disposition Admit Condition Fair User Yojana Washington MD Date/Time Katie September 19, 2023 5:22 AM Comment -- ATTESTATION STATEMENTS This note has been prepared by Parviz Potts acting as a scribe for Dr. Yojana Washington on 09/19/2023 at 5:42 AM. The scribe's documentation has been prepared under my direction and personally reviewed by me, Yojana Washington MD , in its entirety on 09/19/23 at 6:22 AM. I confirm that the note above accurately reflects all work, treatment, procedures, and medical decision making performed by me. documented in this encounter Miscellaneous Notes * Care Plan - Shonna David LPN - 09/26/2023 6:15 PM CDT Casandra Doss will be discharged via wheelchair to home. Casandra Doss is accompanied by family member(s) son and will be transported via private vehicle. IV removed. AVS reviewed * Care Plan - Shonna David LPN - 09/26/2023 3:08 PM CDT Casandra Doss Pt is a&ox4. No complaints of pain or discomfort this shift. Blood sugar checked and insulin given per JUN. Resting between care call light in reach * Care Plan - Vicki Pride RN - 09/26/2023 4:02 AM CDT Problem: Skin Goal: Maintain skin integrity and/or promote wound healing by discharge Outcome: Progressing Problem: Nutrition/Endocrine Goal: Achieve optimal nutrition and fluid status to meet metabolic needs throughout hospitalization Outcome: Progressing Problem: Discharge Planning Goal: Identify discharge needs upon admission and through discharge Description: Outcome: Progressing Problem: Gastrointestinal Goal: Achieve optimal gastrointestinal function by discharge or maintain baseline function Outcome: Progressing Problem: Musculoskeletal Goal: Achieve optimal musculoskeletal function by discharge or maintain baseline function Outcome: Progressing * Care Plan - Uyen Mcdowell RN - 09/25/2023 4:00 PM CDT Patient is progressing toward discharge goals. * Care Plan - Christina Maldonado RN - 09/25/2023 7:48 AM CDT Patient continues to be followed by Care Management. Chart review completed. Patient transferred from [facility]. Medical workup in progress. Care Management will continue to follow and assist with discharge needs as they arise. Christina Maldonado RN [id number] Problem: Discharge Planning Goal: Identify discharge needs upon admission and through discharge Description: Outcome: Progressing * Care Plan - Vicki Pride RN - 09/24/2023 9:26 PM CDT Problem: Skin Goal: Maintain skin integrity and/or promote wound healing by discharge Outcome: Progressing Problem: Nutrition/Endocrine Goal: Achieve optimal nutrition and fluid status to meet metabolic needs throughout hospitalization Outcome: Progressing Problem: Discharge Planning Goal: Identify discharge needs upon admission and through discharge Description: Outcome: Progressing Problem: Gastrointestinal Goal: Achieve optimal gastrointestinal function by discharge or maintain baseline function Outcome: Progressing Problem: Musculoskeletal Goal: Achieve optimal musculoskeletal function by discharge or maintain baseline function Outcome: Progressing * Care Plan - Zahraa Borrero RN - 09/23/2023 12:42 PM CDT Problem: Discharge Planning Goal: Identify discharge needs upon admission and through discharge Description: Outcome: Progressing CM continues to follow for discharge planning. Chart reviewed. No discharge needs anticipated. Zahraa Borrero RN Care Manager [phone] cell [phone] office * Care Plan - Maurice Whaley RN - 09/23/2023 2:52 AM CDT Shift Summary and Plan of Care: Triglycerides slightly increased on PM check. Patient abdominal pain improving but still needing multiple doses of pain medication for control. No BM since admission but also very little nutritive intake. Pathway Day 3 - Current (INTERDIS PW: HYPERGLYCEMIA, ADULT) Metabolic: Maintain glucose between 110-180 mg/dL when receiving subcutaneous insulin and between 110-160 mg/dL when receiving IV insulin. Outcome: Met Nutrition Management: Patient maintaining appropriate carbohydrate selections with each meal. Outcome: Met Symptom Management: Patient denies signs and symptoms of hyperglycemic or hypoglycemic events Outcome: Met Problem: Skin Goal: Maintain skin integrity and/or promote wound healing by discharge Outcome: Progressing Flowsheets (Taken 09/19/2023 1325 by Donis Fernandez, CLAU) Skin Interventions: Specialty cushion/mattress utilized Problem: Nutrition/Endocrine Goal: Achieve optimal nutrition and fluid status to meet metabolic needs throughout hospitalization Outcome: Progressing Flowsheets Taken 09/22/2023 0942 by Alize Alamo RN Nutrition/Endocrine Care Plan Problems: Oral intake,Inadequate Taken 09/21/2023 0811 by Alize Alamo, RN Nutrition/Endocrine Interventions: Blood glucose monitored Diet advanced Problem: Discharge Planning Goal: Identify discharge needs upon admission and through discharge Description: Outcome: Progressing Flowsheets (Taken 09/22/20232019) Plan of Care Reviewed with: patient Patient's Individualized Goal: be able to eat and get home Problem: Gastrointestinal Goal: Achieve optimal gastrointestinal function by discharge or maintain baseline function Outcome: Progressing Flowsheets (Taken 09/22/20232019) Gastrointestinal Care Plan Problems: Nausea/emesis episodes Gastrointestinal Interventions: Activity promoted Fluid intake promoted Monitor/maintain fluid-electrolyte balance Nausea/vomiting management Problem: Musculoskeletal Goal: Achieve optimal musculoskeletal function by discharge or maintain baseline function Outcome: Progressing Flowsheets Taken 09/23/2023 0100 Present Activity: in bed Positioning: independent Taken 09/22/20232019 Musculoskeletal Care Plan Problems: Activity intolerance, Potential/Actual Musculoskeletal Interventions: Mobility promoted Peak in ADL???s promoted Slow, progressive position changes Adaptive equipment provided Up in chair encouraged for meals/activities Active ROM promoted Problem: Peripheral Neurovascular Goal: Achieve optimal peripheral neurovascular function by discharge or maintain baseline function Outcome: Progressing Flowsheets (Taken 09/22/2023 0942 by Alize Alamo, RN) Peripheral Neurovascular Care Plan Problems: Peripheral perfusion decreased, Potential/Actual Peripheral Neurovascular Interventions: Ambulation promoted Affected extremity elevated Problem: Cardiovascular Goal: Achieve optimal cardiovascular function by discharge or maintain baseline function Outcome: Progressing Flowsheets (Taken 09/21/20232041) Cardiovascular Care Plan Problems: Blood pressure regulation impaired (Hypertension) Cardiovascular Interventions: Rest promoted/activity minimized Activity assistance provided Minimize O2 consumption Fluid restriction promoted Cardiac monitoring Problem: Respiratory Goal: Achieve optimal respiratory function by discharge and/or maintain baseline function Outcome: Progressing Flowsheets (Taken 09/21/2023 0811 by Alize Alamo, RN) Respiratory Care Plan Problems: Bronchospasm, potential or actual * Care Plan - Alize Alamo RN - 09/22/2023 6:32 PM CDT End of Shift Note: Patient rested in bed. Taken off of insulin drip and placed on clear liquids diet. Triglycerides were in the 700s this shift. Neuro: A&Ox4 Resp: clear LS. Oxygen saturations between 96-99. CV: Normal SR/SB with HR in the 50-70s. SBP 100-140s with 2/2 pulses. Afebrile. GI: Abdominal pain with hypoactive bowel sounds. Medication given per MAR. No BM this shift. Endocrine: ACHS : Per BSC. Adequate output. Skin: No noted skin issues at this time. Sleep Evaluation: Resting between care. Medication titrations/Procedures/Labs/Diagnostic Tests: Insulin drip DC Patient Goals Not Met: Active abdominal pain with hypoactive bowel sounds Problem: Gastrointestinal Goal: Achieve optimal gastrointestinal function by discharge or maintain baseline function Outcome: Progressing Problem: Nutrition/Endocrine Goal: Achieve optimal nutrition and fluid status to meet metabolic needs throughout hospitalization Outcome: Progressing * Care Plan - Maurice Whaley RN - 09/22/2023 2:51 AM CDT Shift summary and Plan of Care: Last Triglyceride right at 1000, very likely to come off insulin gtt today. Still not eating, no Nausea or vomiting however. Oxy and dilaudid for abdominal pain. Pathway Day 3 - Current (INTERDIS PW: HYPERGLYCEMIA, ADULT) Metabolic: Maintain glucose between 110-180 mg/dL when receiving subcutaneous insulin and between 110-160 mg/dL when receiving IV insulin. Outcome: Met Nutrition Management: Patient maintaining appropriate carbohydrate selections with each meal. Outcome: Met Symptom Management: Patient denies signs and symptoms of hyperglycemic or hypoglycemic events Outcome: Met Problem: Skin Goal: Maintain skin integrity and/or promote wound healing by discharge Outcome: Progressing Problem: Nutrition/Endocrine Goal: Achieve optimal nutrition and fluid status to meet metabolic needs throughout hospitalization Outcome: Progressing Problem: Discharge Planning Goal: Identify discharge needs upon admission and through discharge Description: Outcome: Progressing Problem: Gastrointestinal Goal: Achieve optimal gastrointestinal function by discharge or maintain baseline function Outcome: Progressing Problem: Musculoskeletal Goal: Achieve optimal musculoskeletal function by discharge or maintain baseline function Outcome: Progressing Problem: Peripheral Neurovascular Goal: Achieve optimal peripheral neurovascular function by discharge or maintain baseline function Outcome: Progressing Problem: Cardiovascular Goal: Achieve optimal cardiovascular function by discharge or maintain baseline function Outcome: Progressing Problem: Respiratory Goal: Achieve optimal respiratory function by discharge and/or maintain baseline function Outcome: Progressing * Care Plan - Alize Alamo RN - 09/21/2023 6:10 PM CDT End of Shift Note: Patient rested in bed and slept between care. Patient complained of pain throughout the day medication given per jun. Pain located in abdomen on left side. Neuro: A&O x4 Resp: RA with clear lung sounds in all [place] CV: NS, HR 70s-80s. SBP 120s-130s. Pulses 2/2. Lovenox changed to heparin. Afebrile GI: BM [employer] Endocrine: Q1 blood sugar check for insulin drip. See results for range : Voided per BSC Skin: No skin issues noted at this time Sleep Evaluation: Rested between care Medication titrations/Procedures/Labs/Diagnostic Tests: Insulin drip titrated per JUN. Monitor Triglycerides and blood sugars Problem: Nutrition/Endocrine Goal: Achieve optimal nutrition and fluid status to meet metabolic needs throughout hospitalization Outcome: Progressing * Care Plan - Maurice Whaley RN - 09/21/2023 3:47 AM CDT Shift Summary and Plan of Care: Pain meds for pancreatitis. Insulin drip maintained. Blood sugars are stable and triglycerides improving. * Care Plan - Mikala Estrella LPN - 09/20/2023 5:31 AM CDT Problem: Skin Goal: Maintain skin integrity and/or promote wound healing by discharge 09/20/2023530 by Mikala Estrella LPN Outcome: Progressing 09/20/2023528 by Mikala Estrella LPN Outcome: Progressing Problem: Nutrition/Endocrine Goal: Achieve optimal nutrition and fluid status to meet metabolic needs throughout hospitalization 09/20/2023 05 by Mikala Estrella LPN Outcome: Progressing 09/20/2023528 by Mikala Estrella LPN Outcome: Progressing Problem: Discharge Planning Goal: Identify discharge needs upon admission and through discharge Description: 09/20/2023530 by Mikala Estrella LPN Outcome: Progressing 09/20/2023528 by Mikala Estrella LPN Outcome: Progressing * Care Plan - Mikala Estrella LPN - 09/20/2023 5:30 AM CDT Problem: Skin Goal: Maintain skin integrity and/or promote wound healing by discharge Outcome: Progressing Problem: Nutrition/Endocrine Goal: Achieve optimal nutrition and fluid status to meet metabolic needs throughout hospitalization Outcome: Progressing Problem: Discharge Planning Goal: Identify discharge needs upon admission and through discharge Description: Outcome: Progressing * Care Plan - Arcelia Giordano MSW - 09/19/2023 11:27 AM CDT Manual CDPA Clinical documentation reviewed. Comprehensive Discharge Planning Risk Assessment was completed. Documentation Related to CDPA score Total score of 9 or below does not identify immediate needs for discharge. Age Score: 4 Disability Score: 0 Prior Living Status Score: 0 Mobility Limitation Score: 0 Total Score: [address] consult if needs for discharge are identified. Care Management will continue to follow for discharge planning. LOBO Johnston Social Work [facility] LOBO Johnston, 09/19/2023 11:28 AM Problem: Discharge Planning Goal: Identify discharge needs upon admission and through discharge Description: Outcome: Progressing documented in this encounter Plan of Treatment Upcoming Encounters Date Type Department Care Team (Late st Contact Info) Description 09/14/2024 3:00 PM CDT Office Visit [facility] [id number] [address] [place] [address] Marlys Mayer MD [address] [place] [address] documented as of this encounter Procedures Procedure Name Priority Date/Time Associated Diagnosis Comments TELEMETRY REPORT 10/01/2023 3:36 PM CDT POC GLUCOSE Routine 09/26/2023 2:04 PM CDT POC GLUCOSE Routine 09/26/2023 8:59 AM CDT POC GLUCOSE Routine 09/25/2023 11:03 PM CDT POC GLUCOSE Routine 09/25/2023 5:48 PM CDT POC GLUCOSE Routine 09/25/2023 1:16 PM CDT POC GLUCOSE Routine 09/25/2023 9:29 AM CDT CBC WITHOUT DIFFERENTIAL Routine 09/25/2023 8:09 AM CDT COMPREHENSIVE METABOLIC PANEL Routine 09/25/2023 8:08 AM CDT POC GLUCOSE Routine 09/24/2023 8:17 PM CDT POC GLUCOSE Routine 09/24/2023 5:15 PM CDT POC GLUCOSE Routine 09/24/2023 11:49 AM CDT POC GLUCOSE Routine 09/24/2023 8:53 AM CDT POC GLUCOSE Routine 09/23/2023 11:42 PM CDT POC GLUCOSE Routine 09/23/2023 7:38 PM CDT POC GLUCOSE Routine 09/23/2023 1:35 PM CDT US CAROTID DOPPLER Routine 09/23/2023 9: 43 AM CDT POC GLUCOSE Routine 09/23/2023 9:22 AM CDT TRIGLYCERIDE Routine 09/22/2023 11:44 PM CDT POC GLUCOSE Routine 09/22/2023 10:23 PM CDT POC GLUCOSE Routine 09/22/2023 4:05 PM CDT POC GLUCOSE Routine 09/22/2023 12:23 PM CDT POC GLUCOSE Routine 09/22/2023 11:04 AM CDT POC GLUCOSE Routine 09/22/2023 10:09 AM CDT TRIGLYCERIDE Routine 09/22/2023 9:31 AM CDT POC GLUCOSE Routine 09/22/2023 9:15 AM CDT POC GLUCOSE Routine 09/22/2023 8:15 AM CDT POC GLUCOSE Routine 09/22/2023 8:02 AM CDT POC GLUCOSE Routine 09/22/2023 6:59 AM CDT POC GLUCOSE Routine 09/22/2023 6:06 AM CDT POC GLUCOSE Routine 09/22/2023 5:11 AM CDT POC GLUCOSE Routine 09/22/2023 4:12 AM CDT POC GLUCOSE Routine 09/22/2023 3:05 AM CDT POC GLUCOSE Routine 09/22/2023 2:02 AM CDT POC GLUCOSE Routine 09/22/2023 1:06 AM CDT POC GLUCOSE Routine 09/22/2023 12:02 AM CDT POC GLUCOSE Routine 09/21/2023 11:10 PM CDT POC GLUCOSE Routine 09/21/2023 10:09 PM CDT TRIGLYCERIDE Routine 09/21/2023 9:10 PM CDT POC GLUCOSE Routine 09/21/2023 9:07 PM CDT POC GLUCOSE Routine 09/21/2023 8:06 PM CDT POC GLUCOSE Routine 09/21/2023 7:09 PM CDT POC GLUCOSE Routine 09/21/2023 6:20 PM CDT POC GLUCOSE Routine 09/21/2023 5:18 PM CDT POC GLUCOSE Routine 09/21/2023 4:08 PM CDT POC GLUCOSE Routine 09/21/2023 3:13 PM CDT POC GLUCOSE Routine 09/21/2023 2:11 PM CDT POC GLUCOSE Routine 09/21/2023 1:14 PM CDT POC GLUCOSE Routine 09/21/2023 12:06 PM CDT POC GLUCOSE Routine 09/21/2023 11:18 AM CDT POC GLUCOSE Routine 09/21/2023 10:18 AM CDT TRIGLYCERIDE Routine 09/21/2023 9:07 AM CDT POC GLUCOSE Routine 09/21/2023 9:04 AM CDT POC GLUCOSE Routine 09/21/2023 8:00 AM CDT POC GLUCOSE Routine 09/21/2023 7:04 AM CDT POC GLUCOSE Routine 09/21/2023 6:12 AM CDT POC GLUCOSE Routine 09/21/2023 4:58 AM CDT POC GLUCOSE Routine 09/21/2023 4:04 AM CDT POC GLUCOSE Routine 09/21/2023 4:03 AM CDT POC GLUCOSE Routine 09/21/2023 3:18 AM CDT POC GLUCOSE Routine 09/21/2023 3:16 AM CDT POC GLUCOSE Routine 09/21/2023 1:27 AM CDT POC GLUCOSE Routine 09/21/2023 12:15 AM CDT POC GLUCOSE Routine 09/20/2023 11:04 PM CDT POC GLUCOSE Routine 09/20/2023 10:10 PM CDT TRIGLYCERIDE Routine 09/20/2023 9:43 PM CDT POC GLUCOSE Routine 09/20/2023 9:12 PM CDT POC GLUCOSE Routine 09/20/2023 8:04 PM CDT POC GLUCOSE Routine 09/20/2023 6:59 PM CDT POC GLUCOSE Routine 09/20/2023 6:01 PM CDT POC GLUCOSE Routine 09/20/2023 5:11 PM CDT POC GLUCOSE Routine 09/20/2023 4:07 PM CDT POC GLUCOSE Routine 09/20/2023 3:01 PM CDT POC GLUCOSE Routine 09/20/2023 2:04 PM CDT POC GLUCOSE Routine 09/20/2023 1:07 PM CDT POC GLUCOSE Routine 09/20/2023 12:18 PM CDT POC GLUCOSE Routine 09/20/2023 11:23 AM CDT ECHOCARDIOGRAM W/ CONTRAST AGENT Routine 09/20/2023 11:02 AM CDT POC GLUCOSE Routine 09/20/2023 10:09 AM CDT POC GLUCOSE Routine 09/20/2023 9:15 AM CDT POC GLUCOSE Routine 09/20/2023 8:10 AM CDT TRIGLYCERIDE Routine 09/20/2023 7:56 AM CDT POC GLUCOSE Routine 09/20/2023 7:10 AM CDT POC GLUCOSE Routine 09/20/2023 4:53 AM CDT CBC WITHOUT DIFFERENTIAL Routine 09/20/2023 4:06 AM CDT COMPREHENSIVE METABOLIC PANEL Routine 09/20/2023 4:06 AM CDT POC GLUCOSE Routine 09/20/2023 4:01 AM CDT POC GLUCOSE Routine 09/20/2023 2:54 AM CDT POC GLUCOSE Routine 09/20/2023 1:51 AM CDT POC GLUCOSE Routine 09/20/2023 12:58 AM CDT POC GLUCOSE Routine 09/19/2023 11:55 PM CDT POC GLUCOSE Routine 09/19/2023 10:52 PM CDT POC GLUCOSE Routine 09/19/2023 10:04 PM CDT TRIGLYCERIDE Routine 09/19/2023 8:56 PM CDT POC GLUCOSE Routine 09/19/2023 8:49 PM CDT POC GLUCOSE Routine 09/19/2023 7:32 PM CDT POC GLUCOSE Routine 09/19/2023 5:[address] ABDOMEN PELVIS W CONTRAST Routine 09/19/2023 12:01 PM CDT POC GLUCOSE Routine 09/19/2023 11:44 AM CDT TROPONIN 6 HR, 5TH GEN Timed Study 11:09 AM CDT TROPONIN 2 HR, 5TH GEN Timed Study 12:59 AM CDT TRIGLYCERIDE Stat 09/19/2023 12:59 AM CDT LDL CHOLESTEROL, DIRECT Stat 09/19/2023 12:59 AM CDT HDL CHOLESTEROL Stat 09/19/2023 12:59 AM CDT LIPASE Stat 09/19/2023 12:59 AM CDT CHOLESTEROL TOTAL Stat 09/19/2023 12: 59 AM CDT URINALYSIS W/REFLEX MICROSCOPIC Stat 09/18/2023 10:51 PM CDT XR CHEST PA OR AP 1 VW Stat 10:23 PM CDT EXTRA TUBE (BLUE) Stat 09/18/2023 10: 18 PM CDT EXTRA TUBE Stat 09/18/2023 10:18 PM CDT TROPONIN BASELINE, 5TH GEN Stat 09/18/2023 10:18 PM CDT CBC WITH DIFFERENTIAL Stat 09/18/2023 10:18 PM CDT HEMOGLOBIN A1C Routine 09/18/2023 10:18 PM CDT COMPREHENSIVE METABOLIC PANEL Stat 09/18/2023 10:18 PM CDT EKG 12-LEAD Stat 09/18/2023 9:01 PM CDT documented in this encounter Results * TELEMETRY REPORT (10/01/2023 3:36 PM CDT) Provider Scanning ECG ORDERABLES * POC GLUCOSE (09/26/2023 2:04 PM CDT) GLUCOSE POC 85 74 - 99 mg/dL 09/26/2023 2:04 PM CDT [facility] SPECIMEN SOURCE, GLUCOSE POC Whole Blood 09/26/2023 2:04 PM CDT [facility] COMMENT, GLU POC Notified RN/MD 09/26/2023 2:04 PM CDT [facility] Blood, whole 09/26/2023 2:04 PM CDT 09/26/2023 2:12 PM CDT Kortney Ray DO POINT OF CARE TESTIN G [facility] [email or web address] [facility]# [id number] [address] [facility] [place] [id number] * (ABNORMAL) POC GLUCOSE (09/26/2023 8:59 AM CDT) GLUCOSE POC 185(H) 74 - 99 mg/dL 09/26/2023 8:59 AM CDT [facility] SPECIMEN SOURCE, GLUCOSE POC Whole Blood 09/26/2023 8:59 AM CDT [facility] COMMENT, GLU POC Notified RN/MD 09/26/2023 8:59 AM CDT [facility] Blood, whole 09/26/2023 8:59 AM CDT 09/26/2023 9:15 AM CDT Kortney Ray DO POINT OF CARE TESTIN Maggie Performing Organization Address City/[facility]/ZIP Co de Phone Number [facility] CLIA# [id number] [address] [place] [address] * (ABNORMAL) POC GLUCOSE (09/25/2023 11:03 PM CDT) GLUCOSE POC 204(H) 74 - 99 mg/dL 09/25/2023 11:03 PM CDT [facility] SPECIMEN SOURCE, GLUCOSE POC Whole Blood 09/25/2023 11:03 PM CDT [facility] Blood, whole 09/25/2023 11:0 3 PM CDT 09/25/2023 11:18 PM CDT Kortney Ray DO POINT OF CARE TESTIN Maggie Performing Organization Address [facility]/ZIP Co de Phone Number [facility] CLIA# [id number] [address] [place] [address] * (ABNORMAL) POC GLUCOSE (09/25/2023 5:48 PM CDT) GLUCOSE POC 194(H) 74 - 99 mg/dL 09/25/2023 5:48 PM CDT [facility] - [facility] SPECIMEN SOURCE, GLUCOSE POC Whole Blood 09/25/2023 5:48 PM CDT [facility] COMMENT, GLU POC Notified RN/MD 09/25/2023 5:48 PM CDT [facility] Blood, whole 09/25/2023 5:48 PM CDT 09/25/2023 5:56 PM CDT Kortney Ray DO POINT OF CARE TESTIN Maggie [facility] CLIA# [id number] [address] [place] [address] * (ABNORMAL) POC GLUCOSE (09/25/2023 1:16 PM CDT) GLUCOSE POC 243(H) 74 - 99 mg/dL 09/25/2023 1:16 PM CDT [facility] - [facility] SPECIMEN SOURCE, GLUCOSE POC Whole Blood 09/25/2023 1:16 PM CDT [facility] - [facility] Blood, whole 09/25/2023 1:16 PM CDT 09/25/2023 1:26 PM CDT Kortney Ray DO POINT OF CARE TESTIN G Performing Organization Address City/[facility]/ZIP Co de Phone Number [facility] CLIA# [id number] [address] [place] [address] * (ABNORMAL) POC GLUCOSE (09/25/2023 9:29 AM CDT) GLUCOSE POC 155(H) 74 - 99 mg/dL 09/25/2023 9:29 AM CDT [facility] - [facility] SPECIMEN SOURCE, GLUCOSE POC Whole Blood 09/25/2023 9:29 AM CDT [facility] - [facility] COMMENT, GLU POC Notified RN/MD 09/25/2023 9:29 AM CDT [facility] Blood, whole 09/25/2023 9:29 AM CDT 09/25/2023 9:37 AM CDT Kortney Ray DO POINT OF CARE TESTIN G Performing Organization Address [facility]/ZIP Co de Phone Number [facility] [email or web address] [facility] CLIA# [id number] [address] [place] [address] * (ABNORMAL) CBC WITHOUT DIFFERENTIAL (09/25/2023 8:09 AM CDT) WBC 6.0 4.0 - 9.8 K/uL 09/25/2023 9:01 AM CDT [facility] - [facility] RBC 3.96 3.90 - 4.90 M/uL 09/25/2023 9:[address] [facility] - . [facility] HEMOGLOBIN 11.4(L) 11.8 - 14.8 g/dL 09/25/2023 9:[address] [facility] - [facility] HEMATOCRIT 34.5(L) 35.5 - 44.0 % 09/25/2023 9:[address] [facility] - [facility] MCV 87.1 82.0 - 99.0 fL 09/25/2023 9:[address] [facility] - [facility] MCH 28.8 27.2 - 32.6 pg 09/25/2023 9:[address] [facility] - [facility] MCHC 33.0 31.5 - 35.5 g/dL 09/25/2023 9:[address] [facility] - . [facility] PLATELETS 194 140 - 350 K/uL 09/25/2023 9:01 AM [facility] - . [facility] MPV 9.5 9.3 - 12.4 fL 09/25/2023 9:[address] [facility] - [facility] RDW 14.6(H) 11.5 - 14.5 % 09/25/2023 9:[address] [facility] - [facility] RDW-STDEV 46.5 37.1 - 48.7 fL 09/25/2023 9:[address] [facility] - [facility] Blood Venipuncture / Unknown 09/25/2023 8:09 AM CDT 09/25/2023 8:38 AM CDT Kortney Ray DO HEMATOLOGY ORDERABLE S [facility] - [facility] CLIA# [id number] [address] [facility] [place] [place] [id number] * (ABNORMAL) COMPREHENSIVE METABOLIC PANEL (09/25/2023 8:08 AM CDT) SODIUM 140 136 - 145 mmol/L 09/25/2023 9:24 AM [facility] POTASSIUM 3.8 3.5 - 5.0 mmol/L 09/25/2023 9:24 AM [facility] CHLORIDE 104 98 - 107 mmol/L 09/25/2023 9:24 AM [facility] CO2 26 22 - 29 mmol/L 09/25/2023 9:24 AM [facility] CALCIUM 9.2 8.6 - 10.2 mg/dL 09/25/2023 9:24 AM [employer] [facility] BUN 7 6 - 20 mg/dL 09/25/2023 9:24 AM [employer] CREATININE 0.63 0.51 - 0.95 mg/dL 09/25/2023 9:24 AM [employer] GLUCOSE 144(H) 74 - 99 mg/dL 09/25/2023 9:24 AM [facility] TOTAL PROTEIN 5.9(L) 6.7 - 8.6 g/dL 09/25/2023 9:24 AM [employer] [facility] ALBUMIN 3.7 3.5 - 5.2 g/dL 09/25/2023 9:24 AM [employer] BILIRUBIN TOTAL 0.5 0.3 - 1.2 mg/dL 09/25/2023 9:24 AM [facility] ALKALINE PHOSPHATASE 71 35 - 104 U/L 09/25/2023 9:24 AM [employer] [facility] AST 41(H) <33 U/L 09/25/2023 9:24 AM [employer] [facility] ALT 52(H) <34 U/L 09/25/2023 9:24 AM [facility] - . [facility] GFR >60 >=60 mL/min/1.7 3 sq meter 09/25/2023 9:24 AM [facility] - [facility] Comment:eGFR calculated with 2020 CKD-EPI equation. Vegetarian diet, extremely high or low muscle mass, and may affect results. Cystatin C with Glomerular Filtration Rate is a suitable alternative for these patients. ANION GAP 10 8 - 16 mmol/L 09/25/2023 9:24 AM CDT [facility] - [facility] Blood Venipuncture / Unknown 09/25/2023 8:08 AM CDT 09/25/2023 8:37 AM CDT [facility] LABORATORY SERVICES [facility] - 09/25/2023 9:24 AM CDT Samples containing indocyanine green cause interferences on Total and/or Direct Bilirubin and must not be measured. Kortney Ray DO CHEMISTRY ORDERABLES Performing Organization Address [facility]/ZIP Co de Phone Number [facility] [email or web address] [facility]# [id number] [address] [place] [address] * (ABNORMAL) POC GLUCOSE (09/24/2023 8:17 PM CDT) GLUCOSE POC 178(H) 74 - 99 mg/dL 09/24/2023 8:17 PM CDT [facility] SPECIMEN SOURCE, GLUCOSE POC Whole Blood 09/24/2023 8:17 PM CDT [facility] Blood, whole 09/24/2023 8:17 PM CDT 09/24/2023 8:25 PM CDT Kortney Ray DO POINT OF CARE TESTIN G [facility] [email or web address] [facility]# [id number] [address] [place] [address] * (ABNORMAL) POC GLUCOSE (09/24/2023 5:15 PM CDT) GLUCOSE POC 110(H) 74 - 99 mg/dL 09/24/2023 5:15 PM CDT [facility] SPECIMEN SOURCE, GLUCOSE POC Whole Blood 09/24/2023 5:15 PM CDT [facility] LAB[facility]ORY [facility] Blood, whole 09/24/2023 5:15 PM CDT 09/24/2023 5:29 PM CDT Kortney Ray DO POINT OF CARE TESTIN Maggie [facility] CLIA# [id number] [address] [place] [address] * (ABNORMAL) POC GLUCOSE (09/24/2023 11:49 AM CDT) GLUCOSE POC 205(H) 74 - 99 mg/dL 09/24/2023 11:49 AM CDT [facility]ATORY SERVICES [facility] SPECIMEN SOURCE, GLUCOSE POC Whole Blood 09/24/2023 11:49 AM CDT [facility]ORY SERVICES [facility] Blood, whole 09/24/2023 11:4 9 AM CDT 09/24/2023 11:59 AM CDT Kortney Ray DO POINT OF CARE TESTIN Maggie Performing Organization Address [facility]/ZIP Co de Phone Number [facility] CLIA# [id number] [address] [place] [address] * (ABNORMAL) POC GLUCOSE (09/24/2023 8:53 AM CDT) GLUCOSE POC 117(H) 74 - 99 mg/dL 09/24/2023 8:53 AM CDT [facility]ATORY SERVICES [facility] SPECIMEN SOURCE, GLUCOSE POC Whole Blood 09/24/2023 8:53 AM CDT [facility]ORY SERVICES [facility] Blood, whole 09/24/2023 8:53 AM CDT 09/24/2023 9:14 AM CDT Kortney Ray DO POINT OF CARE TESTIN Maggie [facility] CLIA# [id number] [address] [place] [address] * (ABNORMAL) POC GLUCOSE (09/23/2023 11:42 PM CDT) GLUCOSE POC 155(H) 74 - 99 mg/dL 09/23/2023 11:42 PM CDT [facility] - [facility] SPECIMEN SOURCE, GLUCOSE POC Whole Blood 09/23/2023 11:42 PM CDT [facility] - [facility] Blood, whole 09/23/2023 11:4 2 PM CDT 09/23/2023 11:51 PM CDT Parviz Sanabria MD POINT OF CARE T ESTING Performing Organization Address [facility]/State/ZIP Co de Phone Number [facility] [email or web address] [facility] CLIA# [id number] [address] [place] [address] * (ABNORMAL) POC GLUCOSE (09/23/2023 7:38 PM CDT) GLUCOSE POC 231(H) 74 - 99 mg/dL 09/23/2023 7:38 PM CDT [facility]ORY SERVICES - [facility] SPECIMEN SOURCE, GLUCOSE POC Whole Blood 09/23/2023 7:38 PM CDT [facility]ORY SERVICES - [facility] Blood, whole 09/23/2023 7:38 PM CDT 09/23/2023 7:48 PM CDT Parviz Sanabria MD POINT OF CARE T ESTING [facility] [email or web address] [facility] CLIA# [id number] [address] [place] [address] * (ABNORMAL) POC GLUCOSE (09/23/2023 1:35 PM CDT) GLUCOSE POC 129(H) 74 - 99 mg/dL 09/23/2023 1:35 PM CDT [facility] SERVICES - [facility] SPECIMEN SOURCE, GLUCOSE POC Whole Blood 09/23/2023 1:35 PM CDT [facility] COMMENT, GLU POC Notified RN/MD 09/23/2023 1:35 PM CDT [facility] Blood, whole 09/23/2023 1:35 PM CDT 09/23/2023 1:43 PM CDT Parviz Sanabria MD POINT OF CARE [facility] Organization Address City/State/ZIP Co de Phone Number [facility] CLIA# [id number] [address] [facility] [place] [place] [address] * US CAROTID DOPPLER (09/23/2023 9:43 AM CDT) Anatomical Region Laterality Modality Neck Ultrasound 09/23/2023 7:44 AM CDT Narrative 09/24/2023 6:21 AM CDT [facility] [address] [place] [address] [email or web address] [email or web address] Exam Carotid Duplex Patient: ? Casandra Doss MRN: ? [id number] Study ID: ?[id number] Gender: ?F : ? 1975 Age: ? 47 Race: ?CAU Height ? 165.1cm Study Date: ?09/23/2023 Weight: ?86.2kg Access. #: ? [id number] Account #: ? [id number] *Referring Physician:Parviz Arambula John Jacob *Ordering Physician:* ??Parviz Sanabria History: ?? Syncope. ??PMH: ??No prior study is available for comparison. ??Risk factors: ??The patient is a current tobacco user. Hypertension. Diabetes mellitus. ??Hyperlipidemia. Coronary artery disease. Study data: ??New node ??Study status: ??Routine. ??Procedure: ??A vascular evaluation was performed. Image quality was good. Carotid duplex study was performed using real-time imaging coupled with Doppler flow analysis. Carotid duplex study. ? Complete study and Doppler flow study including spectral analysis, color and abdi scale imaging. ??Birthdate: ??Patient birthdate: 1975. ??Age: ??Patient is 47year(s) old. ??Sex: ?? gender: female. ??Height: ??165.1cm. 65in. ??Weight: ??86.2kg. : 190lb. ??Body mass index: BMI: 31.6kg/m^2. ??Body surface area: ?BSA: 2.02m^2. ??Study date: ??Study date: 09/23/2023. Study time: 07:44 AM. ??Patient status: ??Inpatient. Impressions - Right internal carotid: Stenosis: There is a 0-49% stenosis, low end of ??range. There is hard plaque. - Left internal carotid: Stenosis: There is a 0-49% stenosis, low end of ??range. There is hard and calcified plaque. The bilateral vertebral arteries are patent with normal antegrade flow. Aorta and systemic arteries: Right internal carotid: ??Stenosis: There is a 0-49% stenosis, low end of range. There is hard plaque. Left internal carotid: ??Stenosis: There is a 0-49% stenosis, low end of range. There is hard and calcified plaque. Tables: Arterial flow: + +-----+----+ !Location ?!V sys!V ed! + +-----+----+ !Right CCA - proximal!76.4 !15.5! + +-----+----+ !Right CCA - distal ??!72.1 !20.5! + +-----+----+ !Right ICA - proximal!71.4 !23 ??! + +-----+----+ !Right ICA - distal ??!68.3 !19.3! + +-----+----+ !Right ECA ? !-89.5!11.8! + +-----+----+ !Right vertebral ? !44.7 !13.8! + +-----+----+ !Left CCA - proximal !83.9 !14.3! + +-----+----+ !Left CCA - distal ?? !80.8 !18.6! + +-----+----+ !Left ICA - proximal !75.2 !18 ??! + +-----+----+ !Left ICA - distal ?? !72.7 !22.4! + +-----+----+ !Left ECA ?!99.4 !14.9! + +-----+----+ !Left vertebral ?!54 ?? !15.5! + +-----+----+ *Velocities are expressed in cm/s, Diameters are expressed in cm Velocity ratios: + +-----+-----+ ! ?!R PSV!L PSV! + +-----+-----+ !Max ICA/distal CCA!1 ?!0.93 ! + +-----+-----+ Prepared and Electronically Authenticated Darío Augustine [id number] Procedure Note Darío Augustine MD - 09/24/2023 [place] [address] [email or web address] [email or web address] Exam Carotid Duplex Patient: Casandra Doss Study ID: [id number] Gender: F : 1975 Age: 47 Race: CAU Height 165.1cm Study Date: 09/23/2023 Weight: 86.2kg Access. #: [id number] *Referring Physician:Parviz Arambula John Jacob *Ordering Physician:* Parviz Sanabria History: Syncope. PMH: No prior study is available for comparison.Risk factors: The patient is a current tobacco user. Hypertension. Diabetes mellitus. Hyperlipidemia. Coronary artery disease. Study data: New node Study status: Routine. Procedure: A vascular evaluation was performed. Image quality was good. Carotid duplex studywas performed using real-time imaging coupled with Doppler flow analysis. Carotid duplex study. Complete study and Doppler flow studyincluding spectral analysis, color and abdi scale imaging. Birthdate: Patient birthdate: 1975. Age: Patient is 47year(s) old. Sex: Birthgender: female. Height: 165.1cm. 65in. Weight: 86.2kg. : 190lb. Body massindex: BMI: 31.6kg/m^2. Body surface area: BSA: 2.02m^2. Study date:Study date: 09/23/2023. Study time: 07:44 AM. Patient status: Inpatient. Impressions - Right internal carotid: Stenosis: There is a 0-49% stenosis, low endof range. There is hard plaque. - Left internal carotid: Stenosis: There is a 0-49% stenosis, low end of range. There is hard and calcified plaque. The bilateral vertebral arteries are patent with normal antegrade flow. Aorta and systemic arteries: Right internal carotid: Stenosis: There is a 0-49% stenosis, low end of range. There is hard plaque. Left internal carotid: Stenosis: There is a 0-49% stenosis, low end ofrange. There is hard and calcified plaque. Tables: Arterial flow: + +-----+----+ !Location !V sys!V ed! + +-----+----+ !Right CCA - proximal!76.4 !15.5! + +-----+----+ !Right CCA - distal !72.1 !20.5! + +-----+----+ !Right ICA - proximal!71.4 !23 ! + +-----+----+ !Right ICA - distal !68.3 !19.3! + +-----+----+ !Right ECA !-89.5!11.8! + +-----+----+ !Right vertebral !44.7 !13.8! + +-----+----+ !Left CCA - proximal !83.9 !14.3! + +-----+----+ !Left CCA - distal !80.8 !18.6! + +-----+----+ !Left ICA - proximal !75.2 !18 ! + +-----+----+ !Left ICA - distal !72.7 !22.4! + +-----+----+ !Left ECA !99.4 !14.9! + +-----+----+ !Left vertebral !54 !15.5! + +-----+----+ *Velocities are expressed in cm/s, Diameters are expressed in cm Velocity ratios: + +-----+-----+ ! !R PSV!L PSV! + +-----+-----+ !Max ICA/distal CCA!1 !0.93 ! + +-----+-----+ Prepared and Electronically Authenticated Darío Augustine [id number] Parviz Sanabria MD ORDERABLES * (ABNORMAL) POC GLUCOSE (09/23/2023 9:22 AM CDT) GLUCOSE POC 128(H) 74 - 99 mg/dL 09/23/2023 9:22 AM CDT [facility] [email or web address] [facility] SPECIMEN SOURCE, GLUCOSE POC Whole Blood 09/23/2023 9:22 AM CDT [facility] COMMENT, GLU POC Notified RN/MD 09/23/2023 9:22 AM CDT [facility] [email or web address] [facility] Blood, whole 09/23/2023 9:22 AM CDT 09/23/2023 9:30 AM CDT Parviz Sanabria MD POINT OF CARE T ESTING [facility]# [id number] [address] [facility] [place] [address] * (ABNORMAL) TRIGLYCERIDE (09/22/2023 11:44 PM CDT) Pathologist [facility] TRIGLYCERIDE 859(H) <150 mg/dL 09/23/2023 12:18 AM CDT [facility] [email or web address] [facility] Blood Venipuncture / Unknown 09/22/2023 11:44 PM CDT 09/22/2023 11:48 PM CDT Narrative [facility] [email or web address] [facility] - 09/23/2023 12:18 AM CDT TRIGLYCERIDES ? mg/dL Normal ?< 150 Borderline High ?150 - 199 High ? 200 - 499 Very High ? >= 500 Based on AHA/NCEP Guidelines. Herlinda Mederos DO CHEMISTRY ORDERABLES Performing Organization Address [facility] Co de Phone Number [facility]# [id number] [address] [place] [address] * (ABNORMAL) POC GLUCOSE (09/22/2023 10:23 PM CDT) GLUCOSE POC 173(H) 74 - 99 mg/dL 09/22/2023 10:23 PM CDT [facility] LABORATORY SERVICES [facility] SPECIMEN SOURCE, GLUCOSE POC Whole Blood 09/22/2023 10:23 PM CDT [facility] LABORATORY SERVICES [facility] COMMENT, GLU POC Notified RN/MD 09/22/2023 10:23 PM CDT [facility] LAB[facility]ORY SERVICES [facility] Blood, whole 09/22/2023 10:2 3 PM CDT 09/22/2023 10:32 PM CDT Parviz Sanabria MD POINT OF CARE T ESTING Performing Organization Address [facility] Co de Phone Number [facility]# [id number] [facility] [place] [address] * (ABNORMAL) POC GLUCOSE (09/22/2023 4:05 PM CDT) GLUCOSE POC 128(H) 74 - 99 mg/dL 09/22/2023 4:05 PM CDT [facility] LABORATORY SERVICES [facility] SPECIMEN SOURCE, GLUCOSE POC Whole Blood 09/22/2023 4:05 PM CDT [facility] LABORATORY SERVICES [facility] COMMENT, GLU POC Notified RN/MD 09/22/2023 4:05 PM CDT [facility] LAB[facility]ORY SERVICES [facility] Blood, whole 09/22/2023 4:05 PM CDT 09/22/2023 4:13 PM CDT Parviz Sanabria MD POINT OF CARE T ESTING [facility] [email or web address] [facility] CLIA# [id number] [address] [place] [address] * (ABNORMAL) POC GLUCOSE (09/22/2023 12:23 PM CDT) GLUCOSE POC 180(H) 74 - 99 mg/dL 09/22/2023 12:23 PM CDT [facility] LABORATORY SERVICES [facility] SPECIMEN SOURCE, GLUCOSE POC Whole Blood 09/22/2023 12:23 PM CDT [facility] LAB[facility]ORY SERVICES [facility] COMMENT, GLU POC Notified RN/MD 09/22/2023 12:23 PM CDT [facility]ORY SERVICES [facility] Blood, whole 09/22/2023 12:2 3 PM CDT 09/22/2023 12:31 PM CDT Parviz Sanabria MD [facility] Performing Organization Address [facility]/ZIP Co de Phone Number [facility] [email or web address] [facility]# [id number] [address] [place] [address] * (ABNORMAL) POC GLUCOSE (09/22/2023 11:04 AM CDT) GLUCOSE POC 136(H) 74 - 99 mg/dL 09/22/2023 11:04 AM CDT [facility]ORY SERVICES [facility] SPECIMEN SOURCE, GLUCOSE POC Whole Blood 09/22/2023 11:04 AM CDT [facility] COMMENT, GLU POC Notified RN/ 09/22/2023 11:04 AM CDT [facility] SERVICES [facility] Blood, whole 09/22/2023 11:0 4 AM CDT 09/22/2023 11:12 AM CDT Parviz Sanabria MD POINT OF CARE T ESTING [facility] CLIA# [id number] [address] [place] [address] * (ABNORMAL) POC GLUCOSE (09/22/2023 10:09 AM CDT) Pathologist [facility] GLUCOSE POC 158(H) 74 - 99 mg/dL 09/22/2023 10:09 AM CDT [facility] LAB[facility] SPECIMEN SOURCE, GLUCOSE POC Whole Blood 09/22/2023 10:09 AM CDT [facility] COMMENT, GLU POC Notified RN/MD 09/22/2023 10:09 AM CDT [facility] [email or web address] [facility] Blood, whole 09/22/2023 10:0 9 AM CDT 09/22/2023 10:18 AM CDT Parviz Sanabria MD POINT OF CARE T ESTING Performing Organization Address [facility]/ZIP Co de Phone Number [facility] [email or web address] [facility]# [id number] [address] [place] [address] * (ABNORMAL) TRIGLYCERIDE (09/22/2023 9:31 AM CDT) [facility] TRIGLYCERIDE 743(H) <150 mg/dL 09/22/2023 10:00 AM CDT [facility] [email or web address] [facility] Blood Venipuncture / Unknown 09/22/2023 9:31 AM CDT 09/22/2023 9:35 AM CDT Narrative [facility] [email or web address] [facility] - 09/22/2023 10:00 AM CDT TRIGLYCERIDES ? mg/dL Normal ?< 150 Borderline High ?150 - 199 High ? 200 - 499 Very High ? >= 500 Based on AHA/NCEP Guidelines. Herlinda Mederos DO CHEMISTRY ORDERABLES Performing Organization Address [facility]/ZIP Co de Phone Number [facility] [email or web address] [facility]# [id number] [address] [place] [address] * (ABNORMAL) POC GLUCOSE (09/22/2023 9:15 AM CDT) GLUCOSE POC 150(H) 74 - 99 mg/dL 09/22/2023 9:15 AM CDT [facility] SPECIMEN SOURCE, GLUCOSE POC Whole Blood 09/22/2023 9:15 AM CDT [facility] LABORATORY SERVICES [facility] COMMENT, GLU POC Notified RN/MD 09/22/2023 9:15 AM CDT [facility] LAB[facility]ORY SERVICES [facility] Blood, whole 09/22/2023 9:15 AM CDT 09/22/2023 9:22 AM CDT Parviz Sanabria MD POINT CARE [facility] Performing Organization Address City/[facility]/ZIP Co de Phone Number [facility] CLIA# [id number] [address] [place], [place] [address] * (ABNORMAL) POC GLUCOSE (09/22/2023 8:15 AM CDT) GLUCOSE POC 143(H) 74 - 99 mg/dL 09/22/2023 8:15 AM CDT [facility] LAB[facility]ORY SERVICES [facility] SPECIMEN SOURCE, GLUCOSE POC Whole Blood 09/22/2023 8:15 AM CDT [facility]ORY SERVICES [facility] COMMENT, GLU POC Notified RN/ 09/22/2023 8:15 AM CDT [facility] SERVICES [facility] Blood, whole 09/22/2023 8:15 AM CDT 09/22/2023 8:27 AM CDT Parviz Sanabria MD POINT OF CARE T [facility] CLIA# [id number] [address] [place] [address] * (ABNORMAL) POC GLUCOSE (09/22/2023 8:02 AM CDT) GLUCOSE POC 134(H) 74 - 99 mg/dL 09/22/2023 8:02 AM CDT [facility] SPECIMEN SOURCE, GLUCOSE POC Whole Blood 09/22/2023 8:02 AM CDT [facility] LAB[facility]ATORY SERVICES [facility] COMMENT, GLU POC Notified RN/MD 09/22/2023 8:02 AM CDT [facility] Blood, whole 09/22/2023 8:02 AM CDT 09/22/2023 9:35 AM CDT Parviz Sanabria MD POINT OF CARE T ESTING [facility] CLIA# [id number] [address] [place] [address] * (ABNORMAL) POC GLUCOSE (09/22/2023 6:59 AM CDT) GLUCOSE POC 128(H) 74 - 99 mg/dL 09/22/2023 6:59 AM CDT [facility] SPECIMEN SOURCE, GLUCOSE POC Whole Blood 09/22/2023 6:59 AM CDT [facility] Blood, whole 09/22/2023 6:59 AM CDT 09/22/2023 7:07 AM CDT Parviz Sanabria MD POINT OF CARE T ESTING [facility] CLIA# [id number] [address] [place] [address] * (ABNORMAL) POC GLUCOSE (09/22/2023 6:06 AM CDT) GLUCOSE POC 115(H) 74 - 99 mg/dL 09/22/2023 6:06 AM CDT [facility] SPECIMEN SOURCE, GLUCOSE POC Whole Blood 09/22/2023 6:06 AM CDT [facility] SERVICES [facility] COMMENT, GLU POC Notified RN/ 09/22/2023 6:06 AM CDT [facility] SERVICES [facility] Blood, whole 09/22/2023 6:06 AM CDT 09/22/2023 6:13 AM CDT Parviz Sanabria MD POINT OF CARE [facility] Performing Organization Address [facility]/ZIP Co de Phone Number [facility]# [id number] [address] [place] [address] * (ABNORMAL) POC GLUCOSE (09/22/2023 5:11 AM CDT) GLUCOSE POC 114(H) 74 - 99 mg/dL 09/22/2023 5:11 AM CDT [facility] SERVICES [facility] SPECIMEN SOURCE, GLUCOSE POC Whole Blood 09/22/2023 5:11 AM CDT [facility] Blood, whole 09/22/2023 5:11 AM CDT 09/22/2023 5:42 AM CDT Parviz Sanabria MD POINT OF CARE [facility] Performing Organization Address [facility]/ZIP Co de Phone Number [facility]# [id number] [address] [place] [id number] * (ABNORMAL) POC GLUCOSE (09/22/2023 4:12 AM CDT) GLUCOSE POC 109(H) 74 - 99 mg/dL 09/22/2023 4:12 AM CDT [facility] SPECIMEN SOURCE, GLUCOSE POC Whole Blood 09/22/2023 4:12 AM CDT [facility] COMMENT, GLU POC Notified RN/ 09/22/2023 4:12 AM CDT [facility] Blood, whole 09/22/2023 4:12 AM CDT 09/22/2023 6:13 AM CDT Parviz Sanabria MD POINT OF CARE T [place] [facility] CLIA# [id number] [address] [place] [address] * (ABNORMAL) POC GLUCOSE (09/22/2023 3:05 AM CDT) GLUCOSE POC 112(H) 74 - 99 mg/dL 09/22/2023 3:05 AM CDT [facility] SPECIMEN SOURCE, GLUCOSE POC Whole Blood 09/22/2023 3:05 AM CDT [facility] Blood, whole 09/22/2023 3:05 AM CDT 09/22/2023 4:03 AM CDT Parviz Sanabria MD POINT OF CARE T [place] Performing Organization Address [facility]/ZIP Co de Phone Number [facility] [email or web address] [facility] CLIA# [id number] [address] [place] [address] * (ABNORMAL) POC GLUCOSE (09/22/2023 2:02 AM CDT) GLUCOSE POC 119(H) 74 - 99 mg/dL 09/22/2023 2:02 AM CDT [facility] SPECIMEN SOURCE, GLUCOSE POC Whole Blood 09/22/2023 2:02 AM CDT [facility] CENTER COMMENT, GLU POC Notified RN/MD 09/22/2023 2:02 AM CDT [facility] Blood, whole 09/22/2023 2:02 AM CDT 09/22/2023 2:10 AM CDT Parviz Sanabria MD POINT OF CARE T ESTING [facility] CLIA# [id number] [address] [place] [address] * (ABNORMAL) POC GLUCOSE (09/22/2023 1:06 AM CDT) GLUCOSE POC 104(H) 74 - 99 mg/dL 09/22/2023 1:06 AM CDT [facility] SPECIMEN SOURCE, GLUCOSE POC Whole Blood 09/22/2023 1:06 AM CDT [facility] Blood, whole 09/22/2023 1:06 AM CDT 09/22/2023 1:17 AM CDT Parviz Sanabria MD POINT OF CARE T ESTING [facility] CLIA# [id number] [address] [place] [address] * (ABNORMAL) POC GLUCOSE (09/22/2023 12:02 AM CDT) GLUCOSE POC 119(H) 74 - 99 mg/dL 09/22/2023 12:02 AM CDT [facility] SPECIMEN SOURCE, GLUCOSE POC Whole Blood 09/22/2023 12:02 AM CDT [facility] COMMENT, GLU POC Notified RN/MD 09/22/2023 12:02 AM CDT [facility] Blood, whole 09/22/2023 12:0 2 AM CDT 09/22/2023 12:10 AM CDT Parviz Sanabria MD POINT OF CARE T ESTING [facility] CLIA# [id number] [address] [place] [address] * (ABNORMAL) POC GLUCOSE (09/21/2023 11:10 PM CDT) GLUCOSE POC 123(H) 74 - 99 mg/dL 09/21/2023 11:10 PM CDT [facility] SPECIMEN SOURCE, GLUCOSE POC Whole Blood 09/21/2023 11:10 PM CDT [facility] Blood, whole 09/21/2023 11:1 0 PM CDT 09/21/2023 11:17 PM CDT Parviz Sanabria MD POINT OF CARE T ESTING Performing Organization Address [facility] Co de Phone Number [facility] CLIA# [id number] [address] [place] [address] * (ABNORMAL) POC GLUCOSE (09/21/2023 10:09 PM CDT) Pathologist [facility] GLUCOSE POC 125(H) 74 - 99 mg/dL 09/21/2023 10:09 PM CDT [facility] SPECIMEN SOURCE, GLUCOSE POC Whole Blood 09/21/2023 10:09 PM CDT [facility] COMMENT, GLU POC Notified RN/MD 09/21/2023 10:09 PM CDT [facility] Blood, whole 09/21/2023 10:0 9 PM CDT 09/21/2023 10:16 PM CDT Parviz Sanabria MD POINT OF CARE T ESTING Performing Organization Address [facility] Co de Phone Number [facility] CLIA# [id number] [address] [place] [address] * (ABNORMAL) TRIGLYCERIDE (09/21/2023 9:10 PM CDT) Pathologist [facility] TRIGLYCERIDE 1,008(H) <150 mg/dL 09/21/2023 10:07 PM CDT [facility] Blood Venipuncture / Unknown 09/21/2023 9:10 PM CDT 09/21/2023 9:16 PM CDT Narrative [facility] - 09/21/2023 10:07 PM CDT TRIGLYCERIDES ? mg/dL Normal ?< 150 Borderline High ?150 - 199 High ? 200 - 499 Very High ? >= 500 Based on AHA/NCEP Guidelines. Herlinda Mederos DO CHEMISTRY ORDERABLES Performing Organization Address [facility] Co de Phone Number [facility]# [id number] [address] [place] [address] * (ABNORMAL) POC GLUCOSE (09/21/2023 9:07 PM CDT) GLUCOSE POC 146(H) 74 - 99 mg/dL 09/21/2023 9:07 PM CDT [facility] SPECIMEN SOURCE, GLUCOSE POC Whole Blood 09/21/2023 9:07 PM CDT [facility] [email or web address] [facility] Blood, whole 09/21/2023 9:07 PM CDT 09/21/2023 9:18 PM CDT Parviz Sanabria MD POINT OF CARE T ESTING Performing Organization Address [facility] Co de Phone Number [facility] [email or web address] [facility]# [id number] [address] [place] [address] * (ABNORMAL) POC GLUCOSE (09/21/2023 8:06 PM CDT) GLUCOSE POC 169(H) 74 - 99 mg/dL 09/21/2023 8:06 PM CDT [facility] SPECIMEN SOURCE, GLUCOSE POC Whole Blood 09/21/2023 8:06 PM CDT [facility] COMMENT, GLU POC Notified RN/MD 09/21/2023 8:06 PM CDT [facility] Blood, whole 09/21/2023 8:06 PM CDT 09/21/2023 8:14 PM CDT Parviz Sanabria MD POINT OF CARE T ESTING [facility] CLIA# [id number] [address] [place] [address] * (ABNORMAL) POC GLUCOSE (09/21/2023 7:09 PM CDT) GLUCOSE POC 140(H) 74 - 99 mg/dL 09/21/2023 7:09 PM CDT [facility] SPECIMEN SOURCE, GLUCOSE POC Whole Blood 09/21/2023 7:09 PM CDT [facility] Blood, whole 09/21/2023 7:09 PM CDT 09/21/2023 7:20 PM CDT Parviz Sanabria MD POINT OF CARE T ESTING Performing Organization Address [facility]/ZIP Co de Phone Number [facility] [email or web address] [facility] CLIA# [id number] [address] [place] [address] * POC GLUCOSE (09/21/2023 6:20 PM CDT) GLUCOSE POC 89 74 - 99 mg/dL 09/21/2023 6:20 PM CDT [facility] SPECIMEN SOURCE, GLUCOSE POC Whole Blood 09/21/2023 6:20 PM CDT [facility] COMMENT, GLU POC Notified RN/MD 09/21/2023 6:20 PM CDT [facility] Blood, whole 09/21/2023 6:20 PM CDT 09/21/2023 6:31 PM CDT Parviz Sanabria MD POINT OF CARE T ESTING [facility]# [id number] [address] [place] [address] * (ABNORMAL) POC GLUCOSE (09/21/2023 5:18 PM CDT) GLUCOSE POC 109(H) 74 - 99 mg/dL 09/21/2023 5:18 PM CDT [facility] SPECIMEN SOURCE, GLUCOSE POC Whole Blood 09/21/2023 5:18 PM CDT [facility] Blood, whole 09/21/2023 5:18 PM CDT 09/21/2023 5:25 PM CDT Parviz Sanabria MD POINT OF CARE T ESTING [facility]# [id number] [address] [place] [address] * (ABNORMAL) POC GLUCOSE (09/21/2023 4:08 PM CDT) GLUCOSE POC 117(H) 74 - 99 mg/dL 09/21/2023 4:08 PM CDT [facility] SPECIMEN SOURCE, GLUCOSE POC Whole Blood 09/21/2023 4:08 PM CDT [facility] COMMENT, GLU POC Notified RN/MD 09/21/2023 4:08 PM CDT [facility] Blood, whole 09/21/2023 4:08 PM CDT 09/21/2023 4:16 PM CDT Parviz Sanabria MD [facility] [id number] [address] [place] [address] * (ABNORMAL) POC GLUCOSE (09/21/2023 3:13 PM CDT) GLUCOSE POC 123(H) 74 - 99 mg/dL 09/21/2023 3:13 PM CDT [facility] SPECIMEN SOURCE, GLUCOSE POC Whole Blood 09/21/2023 3:13 PM CDT [facility] Blood, whole 09/21/2023 3:13 PM CDT 09/21/2023 3:20 PM CDT Parviz Sanabria MD POINT OF CARE T ESTING [facility] CLIA# [id number] [address] [place] [address] * (ABNORMAL) POC GLUCOSE (09/21/2023 2:11 PM CDT) GLUCOSE POC 128(H) 74 - 99 mg/dL 09/21/2023 2:11 PM CDT [facility] SPECIMEN SOURCE, GLUCOSE POC Whole Blood 09/21/2023 2:11 PM CDT [facility] COMMENT, GLU POC Notified RN/MD 09/21/2023 2:11 PM CDT [facility] Blood, whole 09/21/2023 2:11 PM CDT 09/21/2023 2:19 PM CDT [facility]viz Sanabria MD [facility] Performing Organization Address [facility]/ZIP Co de Phone Number [facility] CLIA# [id number] [address] [place] [address] * (ABNORMAL) POC GLUCOSE (09/21/2023 1:14 PM CDT) GLUCOSE POC 150(H) 74 - 99 mg/dL 09/21/2023 1:14 PM CDT [facility] SPECIMEN SOURCE, GLUCOSE POC Whole Blood 09/21/2023 1:14 PM CDT [facility] Blood, whole 09/21/2023 1:14 PM CDT 09/21/2023 1:21 PM CDT Parviz Sanabria MD POINT OF CARE T [facility] Performing Organization Address [facility] Co de Phone Number [facility] [id number] [address] [place] [address] * (ABNORMAL) POC GLUCOSE (09/21/2023 12:06 PM CDT) GLUCOSE POC 117(H) 74 - 99 mg/dL 09/21/2023 12:06 PM CDT [facility] SPECIMEN SOURCE, GLUCOSE POC Whole Blood 09/21/2023 12:06 PM CDT [facility] COMMENT, GLU POC Notified RN/MD 09/21/2023 12:06 PM CDT [facility] Blood, whole 09/21/2023 12:0 6 PM CDT 09/21/2023 12:16 PM CDT Parviz Sanabria MD POINT OF CARE T [facility] Performing Organization Address [facility] Co de Phone Number [facility] [email or web address] [facility]# [id number] [address] [place] [address] * (ABNORMAL) POC GLUCOSE (09/21/2023 11:18 AM CDT) GLUCOSE POC 135(H) 74 - 99 mg/dL 09/21/2023 11:18 AM CDT [facility] SPECIMEN SOURCE, GLUCOSE POC Whole Blood 09/21/2023 11:18 AM CDT [facility] COMMENT, GLU POC Notified RN/MD 09/21/2023 11:18 AM CDT [facility] Blood, whole 09/21/2023 11:1 8 AM CDT 09/21/2023 12:31 PM CDT Parviz Sanabria MD POINT OF CARE [facility] Performing Organization Address [facility]/ZIP Co de Phone Number [facility]# [id number] [address] [place] [address] * (ABNORMAL) POC GLUCOSE (09/21/2023 10:18 AM CDT) GLUCOSE POC 135(H) 74 - 99 mg/dL 09/21/2023 10:18 AM CDT [facility] SPECIMEN SOURCE, GLUCOSE POC Whole Blood 09/21/2023 10:18 AM CDT [facility] Blood, whole 09/21/2023 10:1 8 AM CDT 09/21/2023 10:25 AM CDT Parviz Sanabria MD POINT OF CARE [facility] Performing Organization Address [facility] Co de Phone Number [facility] [email or web address] [facility]# [id number] [address] [place] [address] * (ABNORMAL) TRIGLYCERIDE (09/21/2023 9:07 AM CDT) Pathologist [facility] TRIGLYCERIDE 1,142(H) <150 mg/dL 09/21/2023 10:51 AM CDT [facility] Blood Venipuncture / Unknown 09/21/2023 9:07 AM CDT 09/21/2023 9:11 AM CDT Narrative [facility] - 09/21/2023 10:51 AM CDT TRIGLYCERIDES ? mg/dL Normal ?< 150 Borderline High ?150 - 199 High ? 200 - 499 Very High ? >= 500 Based on AHA/NCEP Guidelines. Herlinda Mederos DO CHEMISTRY ORDERABLES [facility] CLIA# [id number] [address] [place] [address] * (ABNORMAL) POC GLUCOSE (09/21/2023 9:04 AM CDT) GLUCOSE POC 159(H) 74 - 99 mg/dL 09/21/2023 9:04 AM CDT [facility] SPECIMEN SOURCE, GLUCOSE POC Whole Blood 09/21/2023 9:04 AM CDT [facility] Blood, whole 09/21/2023 9:04 AM CDT 09/21/2023 9:16 AM CDT Parviz Sanabria MD POINT OF CARE T [facility] Performing Organization Address [facility]/ZIP Co de Phone Number [facility] CLIA# [id number] [address] [place] [address] * (ABNORMAL) POC GLUCOSE (09/21/2023 8:00 AM CDT) GLUCOSE POC 142(H) 74 - 99 mg/dL 09/21/2023 8:00 AM CDT [facility] SPECIMEN SOURCE, GLUCOSE POC Whole Blood 09/21/2023 8:00 AM CDT [facility] COMMENT, GLU POC Notified RN/MD 09/21/2023 8:00 AM CDT [facility] Blood, whole 09/21/2023 8:00 AM CDT 09/21/2023 8:16 AM CDT Parviz Sanabria MD [facility] CLIA# [id number] [address] [place] [address] * (ABNORMAL) POC GLUCOSE (09/21/2023 7:04 AM CDT) GLUCOSE POC 159(H) 74 - 99 mg/dL 09/21/2023 7:04 AM CDT [facility] SPECIMEN SOURCE, GLUCOSE POC Whole Blood 09/21/2023 7:04 AM CDT [facility] Blood, whole 09/21/2023 7:04 AM CDT 09/21/2023 7:12 AM CDT Parviz Sanabria MD POINT OF CARE T EST[facility] Performing Organization Address [facility]/ZIP Co de Phone Number [facility] CLIA# [id number] [address] [place] [address] * (ABNORMAL) POC GLUCOSE (09/21/2023 6:12 AM CDT) GLUCOSE POC 163(H) 74 - 99 mg/dL 09/21/2023 6:12 AM CDT [facility] SPECIMEN SOURCE, GLUCOSE POC Whole Blood 09/21/2023 6:12 AM CDT [facility] Blood, whole 09/21/2023 6:12 AM CDT 09/21/2023 6:29 AM CDT Parviz Sanabria MD POINT OF CARE T ESTING [facility] CLIA# [id number] [address] [place] [address] * (ABNORMAL) POC GLUCOSE (09/21/2023 4:58 AM CDT) GLUCOSE POC 144(H) 74 - 99 mg/dL 09/21/2023 4:58 AM CDT [facility] SPECIMEN SOURCE, GLUCOSE POC Whole Blood 09/21/2023 4:58 AM CDT [facility] Blood, whole 09/21/2023 4:58 AM CDT 09/21/2023 5:05 AM CDT Parviz Sanabria MD POINT OF CARE T ESTING [facility] CLIA# [id number] [address] [place] [address] * (ABNORMAL) POC GLUCOSE (09/21/2023 4:04 AM CDT) GLUCOSE POC 146(H) 74 - 99 mg/dL 09/21/2023 4:04 AM CDT [facility] - [facility] SPECIMEN SOURCE, GLUCOSE POC Whole Blood 09/21/2023 4:04 AM CDT [facility] Blood, whole 09/21/2023 4:04 AM CDT 09/21/2023 4:11 AM CDT Parviz Sanabria MD POINT OF CARE T ESTING [facility] CLIA# [id number] [address] [place] [address] * (ABNORMAL) POC GLUCOSE (09/21/2023 4:03 AM CDT) GLUCOSE POC 199(H) 74 - 99 mg/dL 09/21/2023 4:03 AM CDT [facility] - [facility] SPECIMEN SOURCE, GLUCOSE POC Whole Blood 09/21/2023 4:03 AM CDT [facility] Blood, whole 09/21/2023 4:03 AM CDT 09/21/2023 4:11 AM CDT Parviz Sanabria MD POINT OF CARE T ESTING [facility] CLIA# [id number] [address] [place] [address] * (ABNORMAL) POC GLUCOSE (09/21/2023 3:18 AM CDT) GLUCOSE POC 132(H) 74 - 99 mg/dL 09/21/2023 3:18 AM CDT [facility] - [facility] SPECIMEN SOURCE, GLUCOSE POC Whole Blood 09/21/2023 3:18 AM CDT [facility] - [facility] Blood, whole 09/21/2023 3:18 AM CDT 09/21/2023 3:26 AM CDT Parviz Sanabria MD POINT OF CARE T [facility] [email or web address] [facility] CLKY# [id number] [address] [place] [address] * (ABNORMAL) POC GLUCOSE (09/21/2023 3:16 AM CDT) GLUCOSE POC 230(H) 74 - 99 mg/dL 09/21/2023 3:16 AM CDT [facility] - [facility] SPECIMEN SOURCE, GLUCOSE POC Whole Blood 09/21/2023 3:16 AM CDT [facility] Blood, whole 09/21/2023 3:16 AM CDT 09/21/2023 3:26 AM CDT Parviz Sanabria MD POINT OF CARE T ESTING [facility] [email or web address] [facility] CLKY# [id number] [address] [place] [address] * (ABNORMAL) POC GLUCOSE (09/21/2023 1:27 AM CDT) GLUCOSE POC 136(H) 74 - 99 mg/dL 09/21/2023 1:27 AM CDT [facility] - [facility] SPECIMEN SOURCE, GLUCOSE POC Whole Blood 09/21/2023 1:27 AM CDT [facility] - [facility] Blood, whole 09/21/2023 1:27 AM CDT 09/21/2023 1:34 AM CDT Parviz Sanabria MD POINT OF CARE T [facility] CLIA# [id number] [address] [place] [address] * (ABNORMAL) POC GLUCOSE (09/21/2023 12:15 AM CDT) GLUCOSE POC 146(H) 74 - 99 mg/dL 09/21/2023 12:15 AM CDT [facility] SERVICES - [facility] SPECIMEN SOURCE, GLUCOSE POC Whole Blood 09/21/2023 12:15 AM CDT [facility] Blood, whole 09/21/2023 12:1 5 AM CDT 09/21/2023 2:14 AM CDT Parviz Sanabria MD POINT OF CARE T [facility] [email or web address] SERVICES [facility]# [id number] [address] [place] [address] * (ABNORMAL) POC GLUCOSE (09/20/2023 11:04 PM CDT) GLUCOSE POC 129(H) 74 - 99 mg/dL 09/20/2023 11:04 PM CDT [facility] - [facility] SPECIMEN SOURCE, GLUCOSE POC Whole Blood 09/20/2023 11:04 PM CDT [facility] Blood, whole 09/20/2023 11:0 4 PM CDT 09/21/2023 12:18 AM CDT Parviz Sanabria MD POINT OF CARE T [facility] CLIA# [id number] [address] [place] [address] * (ABNORMAL) POC GLUCOSE (09/20/2023 10:10 PM CDT) Pathologist [facility] GLUCOSE POC 131(H) 74 - 99 mg/dL 09/20/2023 10:10 PM CDT [facility] SPECIMEN SOURCE, GLUCOSE POC Whole Blood 09/20/2023 10:10 PM CDT [facility] Blood, whole 09/20/2023 10:1 0 PM CDT 09/20/2023 10:17 PM CDT Parviz Sanabria MD POINT OF CARE T [facility] Performing Organization Address [facility]/ZIP Co de Phone Number [facility]# [id number] [address] [place] [address] * (ABNORMAL) TRIGLYCERIDE (09/20/2023 9:43 PM CDT) [facility] TRIGLYCERIDE 1,304(H) <150 mg/dL 09/20/2023 11:05 PM CDT [facility] Blood Venipuncture / Unknown 09/20/2023 9:43 PM CDT 09/20/2023 9:48 PM CDT Narrative [facility] - 09/20/2023 11:05 PM CDT TRIGLYCERIDES ? mg/dL Normal ?< 150 Borderline High ?150 - 199 High ? 200 - 499 Very High ? >= 500 Based on AHA/NCEP Guidelines. Herlinda Mederos DO CHEMISTRY ORDERABLES Performing Organization Address [facility]/ZIP Co de Phone Number [facility]# [id number] [address] [place] [address] * (ABNORMAL) POC GLUCOSE (09/20/2023 9:12 PM CDT) GLUCOSE POC 118(H) 74 - 99 mg/dL 09/20/2023 9:12 PM CDT [facility] SPECIMEN SOURCE, GLUCOSE POC Whole Blood 09/20/2023 9:12 PM CDT [facility] Blood, whole 09/20/2023 9:12 PM CDT 09/20/2023 9:19 PM CDT Parviz Sanabria MD POINT OF CARE T ESTING [facility] [email or web address] [facility] [id number] [address] [place] [address] * (ABNORMAL) POC GLUCOSE (09/20/2023 8:04 PM CDT) GLUCOSE POC 115(H) 74 - 99 mg/dL 09/20/2023 8:04 PM CDT [facility] SPECIMEN SOURCE, GLUCOSE POC Whole Blood 09/20/2023 8:04 PM CDT [facility] Blood, whole 09/20/2023 8:04 PM CDT 09/20/2023 9:19 PM CDT Parviz Sanabria MD POINT OF CARE T ESTING [facility] [email or web address] [facility] CLIA# [id number] [address] [place] [address] * (ABNORMAL) POC GLUCOSE (09/20/2023 6:59 PM CDT) GLUCOSE POC 129(H) 74 - 99 mg/dL 09/20/2023 6:59 PM CDT [facility] SPECIMEN SOURCE, GLUCOSE POC Whole Blood 09/20/2023 6:59 PM CDT [facility] COMMENT, GLU POC Notified RN/MD 09/20/2023 6:59 PM CDT [facility] Blood, whole 09/20/2023 6:59 PM CDT 09/20/2023 7:07 PM CDT Parviz Sanabria MD [facility] Performing Organization Address [facility]/ZIP Co de Phone Number [facility]# [id number] [address] [place] [address] * (ABNORMAL) POC GLUCOSE (09/20/2023 6:01 PM CDT) GLUCOSE POC 128(H) 74 - 99 mg/dL 09/20/2023 6:01 PM CDT [facility] SPECIMEN SOURCE, GLUCOSE POC Whole Blood 09/20/2023 6:01 PM CDT [facility] COMMENT, GLU POC Notified BREANN 09/20/2023 6:01 PM CDT [facility] Blood, whole 09/20/2023 6:01 PM CDT 09/20/2023 6:08 PM CDT Parviz Sanabria MD POINT OF CARE T EST[place] Performing Organization Address [facility]/ZIP Co de Phone Number [facility]# [id number] [address] [place] [address] * (ABNORMAL) POC GLUCOSE (09/20/2023 5:11 PM CDT) GLUCOSE POC 129(H) 74 - 99 mg/dL 09/20/2023 5:11 PM CDT [facility] SPECIMEN SOURCE, GLUCOSE POC Whole Blood 09/20/2023 5:11 PM CDT [facility] COMMENT, GLU POC Notified BREANN 09/20/2023 5:11 PM CDT [facility] Blood, whole 09/20/2023 5:11 PM CDT 09/20/2023 5:27 PM CDT Parviz Sanabria MD POINT OF CARE [facility] Performing Organization Address [facility]/ZIP Co de Phone Number [facility]# [id number] [address] [place] [address] * (ABNORMAL) POC GLUCOSE (09/20/2023 4:07 PM CDT) GLUCOSE POC 118(H) 74 - 99 mg/dL 09/20/2023 4:07 PM CDT [facility] SPECIMEN SOURCE, GLUCOSE POC Whole Blood 09/20/2023 4:07 PM CDT [facility] COMMENT, GLU POC Notified RN/MD 09/20/2023 4:07 PM CDT [facility] Blood, whole 09/20/2023 4:07 PM CDT 09/20/2023 4:20 PM CDT Parviz Sanabria MD POINT OF CARE [facility] Performing Organization Address [facility] Co de Phone Number [facility] [email or web address] [facility]# [id number] [address] [place] [id number] * (ABNORMAL) POC GLUCOSE (09/20/2023 3:01 PM CDT) GLUCOSE POC 109(H) 74 - 99 mg/dL 09/20/2023 3:01 PM CDT [facility] SPECIMEN SOURCE, GLUCOSE POC Whole Blood 09/20/2023 3:01 PM CDT [facility] COMMENT, GLU POC Notified RN/MD 09/20/2023 3:01 PM CDT [facility] Blood, whole 09/20/2023 3:01 PM CDT 09/20/2023 3:15 PM CDT Parviz Sanabria MD [facility] Performing Organization Address [facility]/ZIP Co de Phone Number [facility] [email or web address] [facility] CLIA# [id number] [address] [place] [address] * (ABNORMAL) POC GLUCOSE (09/20/2023 2:04 PM CDT) GLUCOSE POC 107(H) 74 - 99 mg/dL 09/20/2023 2:04 PM CDT [facility] SPECIMEN SOURCE, GLUCOSE POC Whole Blood 09/20/2023 2:04 PM CDT [facility] COMMENT, GLU POC Notified RN/MD 09/20/2023 2:04 PM CDT [facility] Blood, whole 09/20/2023 2:04 PM CDT 09/20/2023 2:11 PM CDT Parviz Sanabria MD [facility] Performing Organization Address [facility] Co de Phone Number [facility] [email or web address] [facility] [id number] [address] [place] [address] * (ABNORMAL) POC GLUCOSE (09/20/2023 1:07 PM CDT) GLUCOSE POC 125(H) 74 - 99 mg/dL 09/20/2023 1:07 PM CDT [facility] SPECIMEN SOURCE, GLUCOSE POC Whole Blood 09/20/2023 1:07 PM CDT [facility] COMMENT, GLU POC Notified RN/ 09/20/2023 1:07 PM CDT [facility] Blood, whole 09/20/2023 1:07 PM CDT 09/20/2023 1:15 PM CDT Parviz Sanabria MD [facility] CLIA# [id number] [address] [place] [address] * (ABNORMAL) POC GLUCOSE (09/20/2023 12:18 PM CDT) GLUCOSE POC 135(H) 74 - 99 mg/dL 09/20/2023 12:18 PM CDT [facility] SPECIMEN SOURCE, GLUCOSE POC Whole Blood 09/20/2023 12:18 PM CDT [facility] COMMENT, GLU POC Notified RN/MD 09/20/2023 12:18 PM CDT [facility] Blood, whole 09/20/2023 12:1 8 PM CDT 09/20/2023 12:29 PM CDT Parviz Sanabria MD POINT OF CARE [facility]# [id number] [address] [place] [address] * (ABNORMAL) POC GLUCOSE (09/20/2023 11:23 AM CDT) GLUCOSE POC 131(H) 74 - 99 mg/dL 09/20/2023 11:23 AM CDT [facility] SPECIMEN SOURCE, GLUCOSE POC Whole Blood 09/20/2023 11:23 AM CDT [facility] COMMENT, GLU POC Notified RN/MD 09/20/2023 11:23 AM CDT [facility] Blood, whole 09/20/2023 11:2 3 AM CDT 09/20/2023 11:34 AM CDT Parviz Sanabria MD POINT OF CARE T [facility] CLIA# [id number] [address] [place] [address] * ECHOCARDIOGRAM W/ CONTRAST AGENT (09/20/2023 11:02 AM CDT) EJECTION FRACTION 60 INTERFACE SYSTEM 09/20/2023 10:2 1 AM CDT Narrative INTERFACE SYSTEM - 09/20/2023 11:04 AM CDT [address] [address] [email or web address] Transthoracic Echocardiogram Patient: ? Casandra DossN: ? [id number] Study ID: ?ECHO COMPLETE Gender: ?F : ? 1975 Age: ? 47 Race: ?CAU Height ? 165.1cm Study Date: ?09/20/2023 Weight: ?86.2kg Access. #: ? [id number] Account #: ? [id number] BP: *Referring Physician:* Herlinda Mederos *Ordering Physician:* ??Herlinda Mederos bottle packer: Nurse: STUDY CONCLUSIONS: SUMMARY: - Left ventricle: The cavity size was normal. Wall thickness was increased in ??a pattern of mild LVH. Global systolic function is normal. For Epic ??reporting: the left ventricular ejection fraction is 60% . - Mitral valve: Mild regurgitation. - Left atrium: The atrium is normal in size. - Right ventricle: The cavity size is normal. Systolic function is normal. - Tricuspid valve: Mild regurgitation. Cardiac Anatomy: Left ventricle: ??The cavity size was normal. Wall thickness was increased in a pattern of mild LVH. Global systolic function is normal. For Epic reporting: the left ventricular ejection fraction is 60% . The global longitudinal strain was -18.1%(Normal range is -18 to -25). LEFT VENTRICLE: ??The cavity size was normal. Wall thickness was increased in a pattern of mild LVH. Global systolic function is normal. For Epic reporting: the left ventricular ejection fraction is 60% . The global longitudinal strain was -18.1%(Normal range is -18 to -25). AORTIC VALVE: ?? Structurally normal valve. Trileaflet. ??No significant regurgitation. The mean systolic gradient is 3mm Hg. The peak systolic gradient is 6mm Hg. The LVOT to aortic valve VTI ratio is 0.84. The valve area is 2.1cm^2. The ratio of LVOT to aortic valve peak velocity is 0.81. AORTA: Aortic root: The root is normal-sized. MITRAL VALVE: ?? Structurally normal valve. ?Mild regurgitation. The peak diastolic gradient is 3mm Hg. LEFT ATRIUM: ??The atrium is normal in size. RIGHT VENTRICLE: ??The cavity size is normal. Systolic function is normal. PULMONIC VALVE: ?? Structurally normal valve. ?No significant regurgitation. TRICUSPID VALVE: ?? Structurally normal valve. ?Mild regurgitation. RIGHT ATRIUM: ??The atrium was normal in size. SYSTEMIC VEINS: Inferior vena cava: The IVC is normal-sized. PERICARDIUM: ?? There is no pericardial effusion. Measurements Left ventricle ?Value ?Ref ? 08/25/2021 GLS, 2D ? -18.1 % ?--------- PERICO, LAX ?(L) 2.7 ?? cm ? 3.8 - 5.2 PERICO/bsa, LAX ?(L) 1.4 ?? cm/m^2 ?? 2.3 - 3.1 PERICO, LAX chord ?(N) 4.3 ?? cm ? 3.8 - 5.2 ESD, LAX chord ?(N) 2.7 ?? cm ? 2.2 - 3.5 PERICO/bsa, LAX chord ?(L) 2.2 ?? cm/m^2 ?? 2.3 - 3.1 ESD/bsa, LAX chord ?(N) 1.4 ?? cm/m^2 ?? 1.3 - 2.1 FS, LAX chord ? (N) 37 ?% ?27 - 45 ?? IVS, ED ? (H) 1.2 ?? cm ? 0.6 - 0.9 PW, ED ?(H) 1.2 ?? cm ? 0.6 - 0.9 EDV, 2-p ?(H) 110 ?? ml ? 46 - 106 ??71 ESV, 2-p ?(N) 38 ?ml ? 14 - 42 ?? 27 EF, 2-p ? (N) 66 ?% ?54 - 74 ?? 63 SV, 2-p ? 72 ?ml ? --------- 45 SV/bsa, 2-p ? 37.2 ??ml/m^2 ?? --------- 23.4 E', lat juancho, TDI ?(N) 12.2 ??cm/sec ?? >=10.0 ?10.7 E/e', lat juancho, TDI ?(N) 7 ?<=13 ? E', med juancho, TDI ?(N) 10.0 ??cm/sec ?? >=7.0 ? 8.2 E/e', med juancho, TDI ?8 ?--------- E', avg, TDI ?11.1 ??cm/sec ?? --------- E/e', avg, TDI ?(N) 7 ?<=14 ? LVOT ?Value ?Ref ? 08/25/2021 Diam, S ? 1.8 ?? cm ? --------- Area ?2.5 ?? cm^2 ? --------- 3.1 Peak vick, S ? 1.01 ??m/sec ?--------- 0.91 VTI, S ?20.7 ??cm ? --------- 18.8 Right ventricle ? Value ?Ref ? 08/25/2021 TAPSE, MM ? (N) 1.8 ?? cm ? >=1.7 ? 2.2 Pressure, S ? 24 ?mm Hg ?--------- S' lateral ?(N) 10.8 ??cm/sec ?? >=9.5 ? 11.2 Left atrium ? Value ?Ref ? 08/25/2021 AP dim, ES ?(N) 3.3 ?? cm ? 2.7 - 3.8 3.4 AP dim index, ES ?(N) 1.7 ?? cm/m^2 ?? 1.5 - 2.3 SI dim, A4C ? 6.2 ?? cm ? --------- 5.9 Area ES, A4C ?(N) 19 ?cm^2 ? <=20 ?20 Area/bsa ES, A4C ?9.95 ??cm^2/m^2 --------- SI dim, A2C ? 5.1 ?? cm ? --------- 4.9 SI dim, shorter ? 5.1 ?? cm ? --------- 4.9 Vol, ES, 1-p A4C ?(N) 51 ?ml ? 22 - 52 ?? 54 Vol/bsa, ES, 1-p A4C ??(N) 26 ?ml/m^2 ?? 11 - 40 ?? 28 Vol, ES, 1-p A2C ?(N) 45 ?ml ? 22 - 52 ?? 50 Vol/bsa, ES, 1-p A2C ??(N) 23 ?ml/m^2 ?? 13 - 40 ?? 26 Vol, ES, 2-p ?52 ?ml ? --------- 57 Vol/bsa, ES, 2-p ?(N) 27 ?ml/m^2 ?? 16 - 34 ?? 30 LA/Ao root ratio ?1 ?--------- 1.17 Right atrium ?Value ?Ref ? 08/25/2021 SI dim, ES, A4C ? (N) 4.7 ?? cm ? 3.4 - 5.3 5.0 SI dim/bsa, ES, A4C ?? (N) 2.4 ?? cm/m^2 ?? 1.9 - 3.1 2.6 Area, ES, A4C ? (N) 12 ?cm^2 ? 10 - 18 ?? 16 Vol, ES, 1-p A4C ?28 ?ml ? --------- 40 Vol/bsa, ES, 1-p A4C ??(N) 14 ?ml/m^2 ?? 9 - 33 ?21 Aortic valve ?Value ?Ref ? 08/25/2021 Peak v, S ? 1.3 ?? m/sec ?--------- 1.1 Mean v, S ? 0.79 ??m/sec ?--------- 0.69 VTI, S ?24.7 ??cm ? --------- 20.2 Mean grad, S ?3 ? mm Hg ?--------- 2 Peak grad, S ?6 ? mm Hg ?--------- 5 LVOT/AV, VTI ratio ?0.84 ? --------- 0.93 DELANEY, VTI ?2.1 ?? cm^2 ? --------- 2.9 DELANEY/bsa, VTI ?1.1 ?? cm^2/m^2 --------- 1.53 LVOT/AV, Vpeak ratio ?0.81 ? --------- 0.84 DELANEY, Vmax ? 2.1 ?? cm^2 ? --------- 2.6 DELANEY/bsa, Vmax ? 1.06 ??cm^2/m^2 --------- 1.38 Mitral valve ?Value ?Ref ? 08/25/2021 Peak E ?0.82 ??m/sec ?--------- 0.75 Peak A ?0.66 ??m/sec ?--------- 0.52 Decel time ?214 ?? ms ? --------- 177 PHT ? 63 ?ms ? --------- Peak grad, D ?3 ? mm Hg ?--------- 2 Peak E/A ratio ?1.2 ?--------- MVA, PHT ?3.5 ?? cm^2 ? --------- MVA/bsa, PHT ?1.8 ?? cm^2/m^2 --------- Pulmonic valve ?Value ?Ref ? 08/25/2021 Peak v, S ? 0.75 ??m/sec ?--------- 0.94 Peak grad, S ?2 ? mm Hg ?--------- 4 Tricuspid valve ? Value ?Ref ? 08/25/2021 TR peak v ? (N) 2 ? m/sec ?<=2.8 ? Peak RV-RA grad, S ?19 ?mm Hg ?--------- Aortic root ? Value ?Ref ? 08/25/2021 Root diam, ?3.3 ?? cm ? --------- Systemic veins ?Value ?Ref ? 08/25/2021 Estimated RA pressure ? 5 ? mm Hg ?--------- Legend: (L) ??and ??(H) ??castro values outside specified reference range. (N) ??chavez values inside specified reference range. Procedure data: Procedure information: ??A transthoracic echocardiogram was performed. Scanning was performed from the parasternal, apical, and subcostal acoustic windows. Intravenous contrast (Definity) was administered. ?Transthoracic echocardiogram. ??Complete 2D, complete spectral Doppler, and color Doppler. Birthdate: ??Patient birthdate: 1975. ??Age: ??Patient is 47year(s) old. Sex: ?? gender: female. ??Height: ??165.1cm. 65in. ??Weight: ??86.2kg. 190lb. Body mass index: ??31.6kg/m^2. ??Body surface area: ?1.94m^2. ??Study date: Study date: 09/20/2023. Study time: 10:21 AM. ?Prepared and Electronically Authenticated Gigi Maza [id number]:23 Procedure Note Gigi Maza MD - 09/20/[address] [address] [email or web address] Transthoracic Echocardiogram Patient: Casandra Doss Study ID: ECHO COMPLETE Gender: F : 1975 Age: 47 Race: ANNEMARIE Height 165.1cm Study Date: 09/20/2023 Weight: 86.2kg Access. #: [id number] BP: *Referring Physician:Herlinda Valerio *Ordering Physician:Herlinda Valerio bottle packer: Nurse: STUDY CONCLUSIONS: SUMMARY: - Left ventricle: The cavity size was normal. Wall thickness was increasedin a pattern of mild LVH. Global systolic function is normal. For Epic reporting: the left ventricular ejection fraction is 60% . - Mitral valve: Mild regurgitation. - Left atrium: The atrium is normal in size. - Right ventricle: The cavity size is normal. Systolic function isnormal. - Tricuspid valve: Mild regurgitation. Cardiac Anatomy: Left ventricle: The cavity size was normal. Wall thickness was increasedin a pattern of mild LVH. Global systolic function is normal. For Epicreporting: the left ventricular ejection fraction is 60% . The global longitudinalstrain was -18.1%(Normal range is -18 to -25). LEFT VENTRICLE: The cavity size was normal. Wall thickness was increasedin a pattern of mild LVH. Global systolic function is normal. For Epicreporting: the left ventricular ejection fraction is 60% . The global longitudinalstrain was -18.1%(Normal range is -18 to -25). AORTIC VALVE: Structurally normal valve. Trileaflet. No significant regurgitation. The mean systolic gradient is 3mm Hg. The peak systolic gradient is 6mm Hg. The LVOT to aortic valve VTI ratio is 0.84. The valvearea is 2.1cm^2. The ratio of LVOT to aortic valve peak velocity is 0.81. AORTA: Aortic root: The root is normal-sized. MITRAL VALVE: Structurally normal valve. Mild regurgitation. Thepeak diastolic gradient is 3mm Hg. LEFT ATRIUM: The atrium is normal in size. RIGHT VENTRICLE: The cavity size is normal. Systolic function isnormal. PULMONIC VALVE: Structurally normal valve. No significantregurgitation. TRICUSPID VALVE: Structurally normal valve. Mild regurgitation. RIGHT ATRIUM: The atrium was normal in size. SYSTEMIC VEINS: Inferior vena cava: The IVC is normal-sized. PERICARDIUM: There is no pericardial effusion. Measurements Left ventricle Value Ref 08/25/2021 GLS, 2D -18.1 % --------- PERICO, LAX (L) 2.7 cm 3.8 - 5.2 PERICO/bsa, LAX (L) 1.4 cm/m^2 2.3 - 3.1 PERICO, LAX chord (N) 4.3 cm 3.8 - 5.2 ESD, LAX chord (N) 2.7 cm 2.2 - 3.5 PERICO/bsa, LAX chord (L) 2.2 cm/m^2 2.3 - 3.1 ESD/bsa, LAX chord (N) 1.4 cm/m^2 1.3 - 2.1 FS, LAX chord (N) 37 % 27 - 45 IVS, ED (H) 1.2 cm 0.6 - 0.9 PW, ED (H) 1.2 cm 0.6 - 0.9 EDV, 2-p (H) 110 ml 46 - 106 71 ESV, 2-p (N) 38 ml 14 - 42 27 EF, 2-p (N) 66 % 54 - 74 63 SV, 2-p 72 ml --------- 45 SV/bsa, 2-p 37.2 ml/m^2 --------- 23.4 E', lat juancho, TDI (N) 12.2 cm/sec >=10.0 10.7 E/e', lat juancho, TDI (N) 7 <=13 E', med juancho, TDI (N) 10.0 cm/sec >=7.0 8.2 E/e', med juancho, TDI 8 --------- E', avg, TDI 11.1 cm/sec --------- E/e', avg, TDI (N) 7 <=14 LVOT Value Ref 08/25/2021 Diam, S 1.8 cm --------- Area 2.5 cm^2 --------- 3.1 Peak vick, S 1.01 m/sec --------- 0.91 VTI, S 20.7 cm --------- 18.8 Right ventricle Value Ref 08/25/2021 TAPSE, MM (N) 1.8 cm >=1.7 2.2 Pressure, S 24 mm Hg --------- S' lateral (N) 10.8 cm/sec >=9.5 11.2 Left atrium Value Ref 08/25/2021 AP dim, ES (N) 3.3 cm 2.7 - 3.8 3.4 AP dim index, ES (N) 1.7 cm/m^2 1.5 - 2.3 SI dim, A4C 6.2 cm --------- 5.9 Area ES, A4C (N) 19 cm^2 <=20 20 Area/bsa ES, A4C 9.95 cm^2/m^2 --------- SI dim, A2C 5.1 cm --------- 4.9 SI dim, shorter 5.1 cm --------- 4.9 Vol, ES, 1-p A4C (N) 51 ml 22 - 52 54 Vol/bsa, ES, 1-p A4C (N) 26 ml/m^2 11 - 40 28 Vol, ES, 1-p A2C (N) 45 ml 22 - 52 50 Vol/bsa, ES, 1-p A2C (N) 23 ml/m^2 13 - 40 26 Vol, ES, 2-p 52 ml --------- 57 Vol/bsa, ES, 2-p (N) 27 ml/m^2 16 - 34 30 LA/Ao root ratio 1 --------- 1.17 Right atrium Value Ref 08/25/2021 SI dim, ES, A4C (N) 4.7 cm 3.4 - 5.3 5.0 SI dim/bsa, ES, A4C (N) 2.4 cm/m^2 1.9 - 3.1 2.6 Area, ES, A4C (N) 12 cm^2 10 - 18 16 Vol, ES, 1-p A4C 28 ml --------- 40 Vol/bsa, ES, 1-p A4C (N) 14 ml/m^2 9 - 33 21 Aortic valve Value Ref 08/25/2021 Peak v, S 1.3 m/sec --------- 1.1 Mean v, S 0.79 m/sec --------- 0.69 VTI, S 24.7 cm --------- 20.2 Mean grad, S 3 mm Hg --------- 2 Peak grad, S 6 mm Hg --------- 5 LVOT/AV, VTI ratio 0.84 --------- 0.93 DELANEY, VTI 2.1 cm^2 --------- 2.9 DELANEY/bsa, VTI 1.1 cm^2/m^2 --------- 1.53 LVOT/AV, Vpeak ratio 0.81 --------- 0.84 DELANEY, Vmax 2.1 cm^2 --------- 2.6 DELANEY/bsa, Vmax 1.06 cm^2/m^2 --------- 1.38 Mitral valve Value Ref 08/25/2021 Peak E 0.82 m/sec --------- 0.75 Peak A 0.66 m/sec --------- 0.52 Decel time 214 ms --------- 177 PHT 63 ms --------- Peak grad, D 3 mm Hg --------- 2 Peak E/A ratio 1.2 --------- MVA, PHT 3.5 cm^2 --------- MVA/bsa, PHT 1.8 cm^2/m^2 --------- Pulmonic valve Value Ref 08/25/2021 Peak v, S 0.75 m/sec --------- 0.94 Peak grad, S 2 mm Hg --------- 4 Tricuspid valve Value Ref 08/25/2021 TR peak v (N) 2 m/sec <=2.8 Peak RV-RA grad, S 19 mm Hg --------- Aortic root Value Ref 08/25/2021 Root diam, 3.3 cm --------- Systemic veins Value Ref 08/25/2021 Estimated RA pressure 5 mm Hg --------- Legend: (L) and (H) castro values outside specified reference range. (N) chavez values inside specified reference range. Procedure data: Procedure information: A transthoracic echocardiogram was performed.Scanning was performed from the parasternal, apical, and subcostal acousticwindows. Intravenous contrast (Definity) was administered. Transthoracic echocardiogram. Complete 2D, complete spectral Doppler, and colorDoppler. Birthdate: Patient birthdate: 1975. Age: Patient is 47year(s)old. Sex: gender: female. Height: 165.1cm. 65in. Weight: 86.2kg.190lb. Body mass index: 31.6kg/m^2. Body surface area: 1.94m^2. Studydate: Study date: 09/20/2023. Study time: 10:21 AM. Prepared andElectronically Authenticated Gigi Maza [id number]:23 Herlinda BOSS ORDERABLES INTERFACE SYSTEM Refer to clinic/hospital department * (ABNORMAL) POC GLUCOSE (09/20/2023 10:09 AM CDT) GLUCOSE POC 129(H) 74 - 99 mg/dL 09/20/2023 10:09 AM CDT [facility] [email or web address] [facility] SPECIMEN SOURCE, GLUCOSE POC Whole Blood 09/20/2023 10:09 AM CDT [facility] COMMENT, GLU POC Notified RN/ 09/20/2023 10:09 AM CDT [facility] Blood, whole 09/20/2023 10:0 9 AM CDT 09/20/2023 10:18 AM CDT Parviz Sanabria MD POINT OF CARE T [place] Performing Organization Address [facility] de Phone Number [facility] [email or web address] [facility] CLIA# [id number] [address] [facility] [address] [place] [address] * (ABNORMAL) POC GLUCOSE (09/20/2023 9:15 AM CDT) GLUCOSE POC 140(H) 74 - 99 mg/dL 09/20/2023 9:15 AM CDT [facility] SPECIMEN SOURCE, GLUCOSE POC Whole Blood 09/20/2023 9:15 AM CDT [facility] COMMENT, GLU POC Notified RN/ 09/20/2023 9:15 AM CDT [facility] Blood, whole 09/20/2023 9:15 AM CDT 09/20/2023 9:23 AM CDT Parviz Sanabria MD POINT OF CARE T [place] Performing Organization Address [facility] de Phone Number [facility] [email or web address] [facility] CLIA# [id number] [address] [facility] [place] [address] * (ABNORMAL) POC GLUCOSE (09/20/2023 8:10 AM CDT) GLUCOSE POC 110(H) 74 - 99 mg/dL 09/20/2023 8:10 AM CDT [facility] SPECIMEN SOURCE, GLUCOSE POC Whole Blood 09/20/2023 8:10 AM CDT [facility] COMMENT, GLU POC Notified RN/ 09/20/2023 8:10 AM CDT [facility] [email or web address] [facility] Blood, whole 09/20/2023 8:10 AM CDT 09/20/2023 8:29 AM CDT Parviz Sanabria MD POINT OF CARE T [place] Performing Organization Address [facility]/ZIP Co de Phone Number [facility] [email or web address] [facility]# [id number] [address] [place] [address] * (ABNORMAL) TRIGLYCERIDE (09/20/2023 7:56 AM CDT) TRIGLYCERIDE 1,646(H) <150 mg/dL 09/20/2023 8:53 AM CDT [facility] [email or web address] [facility] Blood Venipuncture / Unknown 09/20/2023 7:56 AM CDT 09/20/2023 8:06 AM CDT Narrative [facility] [email or web address] [facility] - 09/20/2023 8:53 AM CDT TRIGLYCERIDES ? mg/dL Normal ?< 150 Borderline High ?150 - 199 High ? 200 - 499 Very High ? >= 500 Based on AHA/NCEP Guidelines. Herlinda Mederos DO CHEMISTRY ORDERABLES Performing Organization Address City/[facility]/ZIP Co de Phone Number [facility] [email or web address] [facility]# [id number] [address] [place] [address] * (ABNORMAL) POC GLUCOSE (09/20/2023 7:10 AM CDT) GLUCOSE POC 118(H) 74 - 99 mg/dL 09/20/2023 7:10 AM CDT [facility] [email or web address] [facility] SPECIMEN SOURCE, GLUCOSE POC Whole Blood 09/20/2023 7:10 AM CDT [facility] [email or web address] [facility] COMMENT, GLU POC Notified RN/MD 09/20/2023 7:10 AM CDT [facility] Blood, whole 09/20/2023 7:10 AM CDT 09/20/2023 7:23 AM CDT Herlinda Mederos DO POINT OF CARE TESTIN G Performing Organization Address [facility] Co de Phone Number [facility]# [id number] [address] [place] [address] * (ABNORMAL) POC GLUCOSE (09/20/2023 4:53 AM CDT) GLUCOSE POC 111(H) 74 - 99 mg/dL 09/20/2023 4:53 AM T [facility] SPECIMEN SOURCE, GLUCOSE POC Whole Blood 09/20/2023 4:53 AM CDT [facility] COMMENT, GLU POC Notified RN/ 09/20/2023 4:53 AM T [facility] Blood, whole 09/20/2023 4:53 AM CDT 09/20/2023 5:01 AM CDT Herlinda Mederos DO POINT OF CARE TESTIN G Performing Organization Address [facility] Co de Phone Number [facility] [email or web address] [facility]# [id number] [address] [place] [address] * (ABNORMAL) COMPREHENSIVE METABOLIC PANEL (09/20/2023 4:06 AM CDT) SODIUM 136 136 - 145 mmol/L 09/20/2023 5:05 AM T [facility] [email or web address] [facility] POTASSIUM 4.1 3.5 - 5.0 mmol/L 09/20/2023 5:05 AM T [facility] Comment:Moderate hemolysis p resent. Can cause significant falsely elevated result. Redraw if indicated. CHLORIDE 102 98 - 107 mmol/L 09/20/2023 5:05 AM CDT [facility] CO2 23 22 - 29 mmol/L 09/20/2023 5:05 AM [facility] CALCIUM 8.4(L) 8.6 - 10.2 mg/dL 09/20/2023 5:05 AM [facility] Comment:Significant change f rom prior result, correlate clinically and redraw if necessary. BUN 11 6 - 20 mg/dL 09/20/2023 5:05 AM [facility] CREATININE 0.48(L) 0.51 - 0.95 mg/dL 09/20/2023 5:05 AM [facility] GLUCOSE 102(H) 74 - 99 mg/dL 09/20/2023 5:05 AM [facility] TOTAL PROTEIN 6.1(L) 6.7 - 8.6 g/dL 09/20/2023 5:05 AM [facility] ALBUMIN 3.7 3.5 - 5.2 g/dL 09/20/2023 5:05 AM [facility] Comment:Significant change f rom prior result, correlate clinically and redraw if necessary. BILIRUBIN TOTAL 0.2(L) 0.3 - 1.2 mg/dL 09/20/2023 5:05 AM [facility] ALKALINE PHOSPHATASE 70 35 - 104 U/L 09/20/2023 5:05 AM [facility] AST 21 <33 U/L 09/20/2023 5:05 AM [facility] Comment:Hemolysis present. R esult may be falsely elevated. ALT 17 <34 U/L 09/20/2023 5:05 AM [facility] Comment:Hemolysis present. R esult may be falsely elevated. GFR >60 >=60 mL/min/1.7 3 sq meter 09/20/2023 5:05 AM [facility] Comment:eGFR calculated with 2020 CKD-EPI equation. Vegetarian diet, extremely high or low muscle mass, and may affect results. Cystatin C with Glomerular Filtration Rate is a suitable alternative for these patients. ANION GAP 11 8 - 16 mmol/L 09/20/2023 5:[address] [facility] Blood Venipuncture / Unknown 09/20/2023 4:06 AM CDT 09/20/2023 4:18 AM CDT [facility]AT[facility] - 09/20/2023 5:05 AM CDT Samples containing indocyanine green cause interferences on Total and/or Direct Bilirubin and must not be measured. Herlinda Mederos DO CHEMISTRY ORDERABLES [facility] [email or web address] [facility] CLIA# [id number] [address] [facility] [place] [id number] * (ABNORMAL) CBC WITHOUT DIFFERENTIAL (09/20/2023 4:06 AM CDT) WBC 6.6 4.0 - 9.8 K/uL 09/20/2023 5:[address] [facility] RBC 4.05 3.90 - 4.90 M/uL 09/20/2023 5:[address] [facility] HEMOGLOBIN 11.7(L) 11.8 - 14.8 g/dL 09/20/2023 5:[address] [facility] Comment:Significant change f rom prior result, correlate clinically and redraw if necessary. HEMATOCRIT 34.7(L) 35.5 - 44.0 % 09/20/2023 5:[address] [facility] MCV 85.7 82.0 - 99.0 fL 09/20/2023 5:[address] [facility] [email or web address] [facility] MCH 28.9 27.2 - 32.6 pg 09/20/2023 5:[address] [facility] MCHC 33.7 31.5 - 35.5 g/dL 09/20/2023 5:[address] [facility] PLATELETS 255 140 - 350 K/uL 09/20/2023 5:[address] [facility] MPV 9.2(L) 9.3 - 12.4 fL 09/20/2023 5:29 AM CDT [facility] RDW 15.0(H) 11.5 - 14.5 % 09/20/2023 5:29 AM CDT [facility] RDW-STDEV 47.5 37.1 - 48.7 fL 09/20/2023 5:29 AM CDT [facility] Blood Venipuncture / Unknown 09/20/2023 4:06 AM CDT 09/20/2023 4:18 AM CDT Herlinda Mederos DO HEMATOLOGY ORDERABLE S Performing Organization Address City/[facility]/ZIP Co de Phone Number [facility] CLIA# [id number] [address] [place] [address] * (ABNORMAL) POC GLUCOSE (09/20/2023 4:01 AM CDT) GLUCOSE POC 105(H) 74 - 99 mg/dL 09/20/2023 4:01 AM CDT [facility] SPECIMEN SOURCE, GLUCOSE POC Whole Blood 09/20/2023 4:01 AM CDT [facility] Blood, whole 09/20/2023 4:01 AM CDT 09/20/2023 4:18 AM CDT Herlinda Mederos DO POINT OF CARE TESTIN G [facility] CLIA# [id number] [address] [place] [address] * (ABNORMAL) POC GLUCOSE (09/20/2023 2:54 AM CDT) GLUCOSE POC 110(H) 74 - 99 mg/dL 09/20/2023 2:54 AM CDT [facility] SPECIMEN SOURCE, GLUCOSE POC Whole Blood 09/20/2023 2:54 AM CDT [facility]ATORY SERVICES [facility] COMMENT, GLU POC Notified RN/MD 09/20/2023 2:54 AM CDT [facility] Blood, whole 09/20/2023 2:54 AM CDT 09/20/2023 3:01 AM CDT Herlinda Mederos DO POINT OF CARE TESTIN G Performing Organization Address City/[facility]/ZIP Co de Phone Number [facility] [email or web address] [id number] [address] [place] [address] * (ABNORMAL) POC GLUCOSE (09/20/2023 1:51 AM CDT) GLUCOSE POC 102(H) 74 - 99 mg/dL 09/20/2023 1:51 AM CDT [facility] SPECIMEN SOURCE, GLUCOSE POC Whole Blood 09/20/2023 1:51 AM CDT [facility] Blood, whole 09/20/2023 1:51 AM CDT 09/20/2023 2:09 AM CDT Herlinda Mederos DO POINT OF CARE TESTIN G [facility] [email or web address] [facility] CLIA# [id number] [address] [place] [id number] * POC GLUCOSE (09/20/2023 12:58 AM CDT) GLUCOSE POC 82 74 - 99 mg/dL 09/20/2023 12:58 AM [facility]T [facility] SPECIMEN SOURCE, GLUCOSE POC Whole Blood 09/20/2023 12:58 AM CDT [facility]ORY SERVICES [facility] Blood, whole 09/20/2023 12:5 8 AM CDT 09/20/2023 1:07 AM CDT Herlinda Mederos DO POINT OF CARE TESTIN G Performing Organization Address City/[facility]/ZIP Co de Phone Number [facility] [email or web address] [facility] CLIA# [id number] [address] [place] [address] * (ABNORMAL) POC GLUCOSE (09/19/2023 11:55 PM CDT) GLUCOSE POC 117(H) 74 - 99 mg/dL 09/19/2023 11:55 PM CDT [facility]ORY SERVICES [facility] SPECIMEN SOURCE, GLUCOSE POC Whole Blood 09/19/2023 11:55 PM CDT [facility]ORY SERVICES [facility] COMMENT, GLU POC Notified RN/MD 09/19/2023 11:55 PM CDT [facility] Blood, whole 09/19/2023 11:5 5 PM CDT 09/20/2023 12:02 AM CDT Herlinda Gatito REHMAN POINT OF CARE TESTIN Maggie Performing Organization Address [facility]/ZIP Co de Phone Number [facility] CLIA# [id number] [address] [place] [address] * (ABNORMAL) POC GLUCOSE (09/19/2023 10:52 PM CDT) GLUCOSE POC 126(H) 74 - 99 mg/dL 09/19/2023 10:52 PM CDT [facility] SPECIMEN SOURCE, GLUCOSE POC Whole Blood 09/19/2023 10:52 PM CDT [facility] Blood, whole 09/19/2023 10:5 2 PM CDT 09/19/2023 10:59 PM CDT [place] Gatito REHMAN POINT OF CARE TESTIN Maggie [facility] CLIA# [id number] [address] [place] [address] * (ABNORMAL) POC GLUCOSE (09/19/2023 10:04 PM CDT) GLUCOSE POC 130(H) 74 - 99 mg/dL 09/19/2023 10:04 PM CDT [facility] SPECIMEN SOURCE, GLUCOSE POC Whole Blood 09/19/2023 10:04 PM CDT [facility] Blood, whole 09/19/2023 10:0 4 PM CDT 09/19/2023 10:12 PM CDT Herlinda Mederos DO POINT OF CARE TESTIN G [facility] CLIA# [id number] [address] [place] [address] * (ABNORMAL) TRIGLYCERIDE (09/19/2023 8:56 PM CDT) Pathologist [facility] TRIGLYCERIDE 2,377(H) <150 mg/dL 09/19/2023 9:50 PM CDT [facility] Blood Venipuncture / Unknown 09/19/2023 8:56 PM CDT 09/19/2023 9:05 PM CDT Narrative [facility] - 09/19/2023 9:50 PM CDT TRIGLYCERIDES ? mg/dL Normal ?< 150 Borderline High ?150 - 199 High ? 200 - 499 Very High ? >= 500 Based on AHA/NCEP Guidelines. Herlinda Mederos DO CHEMISTRY ORDERABLES Performing Organization Address [facility]/ZIP Co de Phone Number [facility]# [id number] [address] [place] [address] * (ABNORMAL) POC GLUCOSE (09/19/2023 8:49 PM CDT) GLUCOSE POC 151(H) 74 - 99 mg/dL 09/19/2023 8:49 PM CDT [facility] - [facility] SPECIMEN SOURCE, GLUCOSE POC Whole Blood 09/19/2023 8:49 PM CDT [facility] - [facility] Blood, whole 09/19/2023 8:49 PM CDT 09/19/2023 9:10 PM CDT Herlinda Mederos DO POINT OF CARE TESTIN G Performing Organization Address [facility]/ZIP Co de Phone Number [facility] CLIA# [id number] [address] [place] [address] * (ABNORMAL) POC GLUCOSE (09/19/2023 7:32 PM CDT) GLUCOSE POC 189(H) 74 - 99 mg/dL 09/19/2023 7:32 PM CDT [facility] SPECIMEN SOURCE, GLUCOSE POC Whole Blood 09/19/2023 7:32 PM CDT [facility] SERVICES [facility] Blood, whole 09/19/2023 7:32 PM CDT 09/19/2023 7:46 PM CDT Herlinda Mederos DO POINT OF CARE TESTIN G Performing Organization Address [facility]/ZIP Co de Phone Number [facility] CLIA# [id number] [address] [place] [address] * (ABNORMAL) POC GLUCOSE (09/19/2023 5:52 PM CDT) GLUCOSE POC 143(H) 74 - 99 mg/dL 09/19/2023 5:52 PM CDT [facility] SPECIMEN SOURCE, GLUCOSE POC Whole Blood 09/19/2023 5:52 PM CDT [facility] LAB[facility]ORY SERVICES [facility] Blood, whole 09/19/2023 5:52 PM CDT 09/19/2023 6:07 PM CDT Herlinda Mederos DO POINT OF CARE TESTIN G [facility]# [id number] [address] [place] [address] * CT ABDOMEN PELVIS W CONTRAST (09/19/2023 12:01 PM CDT) Anatomical Region Laterality Modality Abdomen Computed Tomogra phy 09/19/2023 11:5 6 AM CDT Impressions 09/19/2023 12:59 PM CDT IMPRESSION: ?? No acute process in the abdomen or pelvis. DICTATION LOCATION: Location [address] [place] [address] Narrative 09/19/2023 12:59 PM CDT EXAMINATION: Computed tomography of the abdomen and pelvis with intravenous contrast DATE: 09/19/2023 12:01 PM HISTORY: Pancreatitis, acute, severe. Syncope and collapse; Other acute pancreatitis, unspecified complication status; Atherosclerosis of coronary artery, unspecified vessel or lesion type, unspecified whether angina present, unspecified whether [place] or transplanted heart; Chylomicronemia syndrome. ?? TECHNIQUE: Computed tomography of the abdomen and pelvis was performed following the uneventful administration of IOPAMIDOL 61 % INTRAVENOUS SOLUTION (MULTI-DOSE BULK PACK) Given:90 mL contrast according to standard protocol. The examination was performed with the adjustment of mA according to the patient size and/or the use of Iterative 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 COMPARISON: 09/13/2021 FINDINGS: ?? LOWER CHEST: Within normal limits. ?? LIVER: Mild diffuse steatosis. GALLBLADDER: Within normal limits. ?? BILE DUCTS: Within normal limits. ?? PANCREAS: Within normal limits. ?? SPLEEN: Within normal limits. ?? ADRENALS: Within normal limits. ?? KIDNEYS/URETERS: Within normal limits. ?? BLADDER: Within normal limits. ?? REPRODUCTIVE ORGANS: Hysterectomy. BOWEL: No evidence of bowel obstruction or acute bowel inflammation. ?? The appendix is not visible; however, no right lower quadrant inflammatory changes are present. PERITONEUM/RETROPERITONEUM: No free intraperitoneal air or fluid. ??No significant lymphadenopathy. ?? VESSELS: Atherosclerosis. ABDOMINAL WALL: Within normal limits. ?? BONES: Spinal degenerative changes. Procedure Note Miguel Delvalle MD - 09/19/2023 EXAMINATION: Computed tomography of the abdomen and pelvis with intravenous contrast DATE: 09/19/2023 12:01 PM HISTORY: Pancreatitis, acute, severe. Syncope and collapse; Other acute pancreatitis, unspecified complication status; Atherosclerosis of coronary artery, unspecified vessel or lesion type, unspecified whether angina present, unspecified whether [place] or transplanted heart; Chylomicronemia syndrome. TECHNIQUE: Computed tomography of the abdomen and pelvis was performed following the uneventful administration of IOPAMIDOL 61 % INTRAVENOUS SOLUTION (MULTI-DOSE BULK PACK) Given:90 mL contrast according to standard protocol. The examination was performed with the adjustment of mA according to the patient size and/or the use of Iterative 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 COMPARISON: 09/13/2021 FINDINGS: LOWER CHEST: Within normal limits. LIVER: Mild diffuse steatosis. GALLBLADDER: Within normal limits. BILE DUCTS: Within normal limits. PANCREAS: Within normal limits. SPLEEN: Within normal limits. ADRENALS: Within normal limits. KIDNEYS/URETERS: Within normal limits. BLADDER: Within normal limits. REPRODUCTIVE ORGANS: Hysterectomy. BOWEL: No evidence of bowel obstruction or acute bowel inflammation. The appendix is not visible; however, no right lower quadrant inflammatory changes are present. PERITONEUM/RETROPERITONEUM: No free intraperitoneal air or fluid. No significant lymphadenopathy. VESSELS: Atherosclerosis. ABDOMINAL WALL: Within normal limits. BONES: Spinal degenerative changes. IMPRESSION: No acute process in the abdomen or pelvis. DICTATION LOCATION: [address] Herlinda Mederos DO CT ORDERABLES * (ABNORMAL) POC GLUCOSE (09/19/2023 11:44 AM CDT) GLUCOSE POC 189(H) 74 - 99 mg/dL 09/19/2023 11:44 AM CDT [facility] SPECIMEN SOURCE, GLUCOSE POC Whole Blood 09/19/2023 11:44 AM CDT [facility] Blood, whole 09/19/2023 11:4 4 AM CDT 09/19/2023 9:05 PM CDT Herlinda Mederos DO POINT OF CARE TESTIN G [facility] [email or web address] [facility] CLIA# [id number] [address] [place] [address] * TROPONIN 6 HR, 5TH GEN (09/19/2023 11:09 AM CDT) TROPONIN T, 6 HR 5TH GEN <6 <11 ng/L 09/19/2023 11:46 AM CDT [facility] [email or web address] [facility] Blood Venipuncture / Unknown 09/19/2023 11:09 AM CDT 09/19/2023 11:14 AM CDT Narrative [facility] - 09/19/2023 11:46 AM CDT Troponin Undetectable Unable to calculate delta. Delay in collection of timed specimen beyond recommended collection interval. Results must be interpreted in clinical context. Yojana Washington MD CHEMISTRY ORDERA BLES [facility] [email or web address] [facility] CLIA# [id number] [address] [place] [address] * LIPASE (09/19/2023 12:59 AM CDT) Pathologist [facility] LIPASE 40 13 - 60 U/L 09/19/2023 5:52 AM CDT [facility] [email or web address] [facility] Blood Venipuncture / Unknown 09/19/2023 12:59 AM CDT 09/19/2023 1:09 AM CDT Yojana Washington MD CHEMISTRY ORDERA BLES [facility] CLIA# [id number] [address] [place] [address] * (ABNORMAL) HDL CHOLESTEROL (09/19/2023 12:59 AM CDT) Pathologist [facility] HDL 16(L) 40 - 59 mg/dL 09/19/2023 5:52 AM CDT [facility] [email or web address] [facility] Blood Venipuncture / Unknown 09/19/2023 12:59 AM CDT 09/19/2023 1:09 AM CDT [facility] [email or web address] [facility] - 09/19/2023 5:52 AM CDT HDL CHOLESTEROL mg/dL Low ?<40 Normal ?40-59 Desirable ? >=60 Based on AHA/NCEP Guidelines. Yojana Washington MD CHEMISTRY ORDERA BLES Performing Organization Address [facility] de Phone Number [facility] [email or web address] [facility]# [id number] [address] [place] [address] * LDL CHOLESTEROL, DIRECT (09/19/2023 12:59 AM CDT) Pathologist [facility] LDL CHOLESTEROL, DIRECT 47 <100 mg/dL 09/19/2023 5:52 AM CDT [facility] [email or web address] [facility] Blood Venipuncture / Unknown 09/19/2023 12:59 AM CDT 09/19/2023 1:09 AM CDT [facility] [email or web address] [facility] - 09/19/2023 5:52 AM CDT LDL [...] MD CHEMISTRY ORDERA BLES Performing Organization Address [facility] Co de Phone Number [facility] [email or web address] [facility]# [id number] [address] [place] [address] * (ABNORMAL) TRIGLYCERIDE (09/19/2023 12:59 AM CDT) TRIGLYCERIDE 3,544(H) <150 mg/dL 09/19/2023 6:07 AM CDT [facility] Blood Venipuncture / Unknown 09/19/2023 12:59 AM CDT 09/19/2023 1:09 AM CDT [facility] [email or web address] [facility] - 09/19/2023 6:07 AM CDT TRIGLYCERIDES ? mg/dL Normal ?< 150 Borderline High ?150 - 199 High ? 200 - 499 Very High ? >= 500 Based on AHA/NCEP Guidelines. Yojana Washington MD CHEMISTRY DAVID ZULUAGA Performing Organization Address [facility] de Phone Number [facility] [email or web address] [facility]# [id number] [address] [place] [address] * (ABNORMAL) CHOLESTEROL TOTAL (09/19/2023 12:59 AM CDT) CHOLESTEROL 470(H) <200 mg/dL 09/19/2023 5:52 AM CDT [facility] [email or web address] [facility] Blood Venipuncture / Unknown 09/19/2023 12:59 AM CDT 09/19/2023 1:09 AM CDT [facility] [email or web address] [facility] - 09/19/2023 5:52 AM CDT TOTAL CHOLESTEROL ?mg/dL Desirable ? < 200 Borderline High ? 200 - 239 High ?>= 240 Based on AHA/NCEP Guidelines. Yojana Washington MD CHEMISTRY DAVID ZULUAGA Performing Organization Address [facility]/ZIP Co de Phone Number [employer] [facility]# [id number] [address] [place] [address] * TROPONIN 2 HR, 5TH GEN (09/19/2023 12:59 AM CDT) TROPONIN T, 2 HR 5TH GEN <6 <=10 ng/L 09/19/2023 1:42 AM CDT [facility] Blood Venipuncture / Unknown 09/19/2023 12:59 AM CDT 09/19/2023 1:09 AM CDT Narrative [facility] - 09/19/2023 1:42 AM CDT Troponin Undetectable Delay in collection of timed specimen beyond recommended collection interval. Results must be interpreted in clinical context. Unable to calculate delta. Yojana Washington MD CHEMISTRY ORDERA [facility] [email or web address] [facility]# [id number] [address] [place] [address] * (ABNORMAL) URINALYSIS WITH REFLEX MICROSCOPIC (09/18/2023 10:51 PM CDT) COLOR UA Yellow Pale to Dark Yellow 09/18/2023 11:07 PM CDT [facility] CLARITY UA Clear Clear 09/18/2023 11:07 PM T [facility] SPECIFIC GRAVITY UA 1.026 1.003 - 1.035 09/18/2023 11:07 PM T [facility] PH UA 5.0 5.0 - 8.0 09/18/2023 11:07 PM CDT [facility] LEUKOCYTE ESTERASE UA Negative Negative 09/18/2023 11:07 PM T [facility] NITRITE UA Negative Negative 09/18/2023 11:07 PM CDT [facility] PROTEIN UA 1+(A) Negative 09/18/2023 11:07 PM CDT [facility] GLUCOSE UA 3+(A) Negative 09/18/2023 11:07 PM CDT [facility] KETONES UA Trace(A) Negative 09/18/2023 11:07 PM CDT [facility] UROBILINOGEN UA 2.0(A) <2.0 mg/dL 11:07 PM CDT [facility] BILIRUBIN UA Negative Negative 09/18/2023 11:07 PM CDT [facility] BLOOD UA Negative Negative 09/18/2023 11:07 PM CDT [facility] WBC UA 0-2 0 - 2 /hpf 09/18/2023 11:07 PM CDT [facility] RBC UA 0-2 0 - 2 /hpf 09/18/2023 11:07 PM CDT [facility] BACTERIA UA Negative Negative /hpf 09/18/2023 11:07 PM T [facility] EPITHELIAL CELLS, URINE 0-5 0 - 5 /hpf 09/18/2023 11:07 PM CDT [facility] Urine URINE SPECIMEN OBTAINED BY CLEAN CATCH PROCEDURE / Unknown Collection / Unknown 09/18/2023 10:51 PM CDT 09/18/2023 10:55 PM CDT Yojana Washington MD URINE ORDERABLES [facility]# [id number] [address] [place] [id number] * XR CHEST PA OR AP 1 VW (09/18/2023 10:23 PM CDT) Anatomical Region Laterality Modality Chest Computed Radiogr aphy 09/18/2023 10:2 3 PM CDT Impressions 09/18/2023 10:40 PM CDT IMPRESSION: No convincing evidence of active disease. ?? DICTATION LOCATION: Location 1 - [facility] Narrative 09/18/2023 10:40 PM CDT PORTABLE AP VIEW OF THE CHEST ?? DATE: 09/18/2023 10:23 PM HISTORY: ??Shortness of Breath SOB. . See Reason for Exam. COMPARISON: 08/24/2021. FINDINGS: ?? Bilateral port type central venous catheters terminate near the superior right atrium and superior cavoatrial junction. ??The cardiomediastinal silhouette is intact. No consolidation is seen. ??No large pleural effusion is seen. There is no definite pneumothorax. Procedure Note Ceasar Izaguirre MD - 09/18/2023 PORTABLE AP VIEW OF THE CHEST DATE: 09/18/2023 10:23 PM HISTORY: Shortness of Breath SOB. . See Reason for Exam. COMPARISON: 08/24/2021. FINDINGS: Bilateral port type central venous catheters terminate near the superior right atrium and superior cavoatrial junction. The cardiomediastinal silhouette is intact. No consolidation is seen. No large pleural effusion is seen. There is no definite pneumothorax. IMPRESSION: No convincing evidence of active disease. DICTATION LOCATION: Location 1 - [facility] Yojana Washington MD DIAGNOSTIC IMAGI NG ORDERABLES * (ABNORMAL) HEMOGLOBIN A1C (09/18/2023 10:18 PM CDT) HEMOGLOBIN A1C 9.7(H) <5.7 % 09/19/2023 10:59 AM CDT [facility] EST. AVG GLUCOSE, A1C 232 mg/dL 09/19/2023 10:59 AM CDT [facility] Blood Venipuncture / Unknown 09/18/2023 10:18 PM CDT 09/18/2023 10:26 PM CDT Narrative [facility] - 09/19/2023 10:59 AM CDT HGB A1C INTERPRETATION NORMAL: ? <5.7% PRE-DIABETES: 5.7 - 6.4% DIABETES: ? 6.5% OR GREATER Herlinda Mederos DO CHEMISTRY ORDERABLES [facility] CLIA# [id number] [address] [place] [address] * EXTRA TUBE (BLUE) (09/18/2023 10:18 PM CDT) Blood Venipuncture / Unknown 09/18/2023 10:18 PM CDT 09/18/2023 10:26 PM CDT Yojana Washington MD HEMATOLOGY ORDER OSVALDO [facility] SERVICES [facility] CLIA# [id number] [address] [place] [address] * (ABNORMAL) COMPREHENSIVE METABOLIC PANEL (09/18/2023 10:18 PM CDT) SODIUM 133(L) 136 - 145 mmol/L 09/18/2023 11:40 PM CDT [facility] POTASSIUM 4.1 3.5 - 5.0 mmol/L 09/18/2023 11:40 PM T [facility] Comment:Slightly hemolyzed. Result may be falsely elevated. CHLORIDE 94(L) 98 - 107 mmol/L 09/18/2023 11:40 PM T [facility] CO2 23 22 - 29 mmol/L 09/18/2023 11:40 PM T [facility] CALCIUM 10.2 8.6 - 10.2 mg/dL 09/18/2023 11:40 PM T [facility] - . [facility] BUN 19 6 - 20 mg/dL 09/18/2023 11:40 PM CDT [facility] LABORATORY SERVICES - . [facility] CREATININE 0.69 0.51 - 0.95 mg/dL 09/18/2023 11:40 PM T [facility] LABORATORY SERVICES - . [facility] GLUCOSE 173(H) 74 - 99 mg/dL 09/18/2023 11:40 PM T [facility] LABORATORY SERVICES - [facility] TOTAL PROTEIN 8.1 6.7 - 8.6 g/dL 09/18/2023 11:40 PM T [facility] LABORATORY SERVICES - [facility] ALBUMIN 4.9 3.5 - 5.2 g/dL 09/18/2023 11:40 PM CDT [facility] BILIRUBIN TOTAL 0.2(L) 0.3 - 1.2 mg/dL 09/18/2023 11:40 PM T [facility] ALKALINE PHOSPHATASE 100 35 - 104 U/L 09/18/2023 11:40 PM T [facility] AST 16 <33 U/L 09/18/2023 11:40 PM T [facility] Comment: Hemolysis present. ??Result may be falsely elevated. Cleared of chylomicrons. ALT 20 <34 U/L 09/18/2023 11:40 PM T [facility] Comment:Cleared of chylomicr ons. GFR >60 >=60 mL/min/1.7 3 sq meter 09/18/2023 11:40 PM T [facility] Comment:eGFR calculated with 2020 CKD-EPI equation. Vegetarian diet, extremely high or low muscle mass, and may affect results. Cystatin C with Glomerular Filtration Rate is a suitable alternative for these patients. ANION GAP 16 8 - 16 mmol/L 09/18/2023 11:40 PM T [facility] Blood Venipuncture / Unknown 09/18/2023 10:18 PM CDT 09/18/2023 10:26 PM CDT Narrative [facility] - 09/18/2023 11:40 PM CDT Samples containing indocyanine green cause interferences on Total and/or Direct Bilirubin and must not be measured. Yojana Washington MD CHEMISTRY ORDERA BLES [facility] CLIA# [id number] [address] [facility] [place] [address] * (ABNORMAL) CBC WITH DIFFERENTIAL (09/18/2023 10:18 PM CDT) WBC 13.2(H) 4.0 - 9.8 K/uL 09/18/2023 10:31 PM CDT [facility] RBC 5.29(H) 3.90 - 4.90 M/uL 09/18/2023 10:31 PM [facility] LAB[facility]ATORY SERVICES - [facility] HEMOGLOBIN 15.3(H) 11.8 - 14.8 g/dL 09/18/2023 10:31 PM [facility] LABORATORY SERVICES - [facility] HEMATOCRIT 44.8(H) 35.5 - 44.0 % 09/18/2023 10:31 PM [facility] LABORATORY SERVICES - [facility] MCV 84.7 82.0 - 99.0 fL 09/18/2023 10:31 PM [facility] LABORATORY SERVICES - [facility] MCH 28.9 27.2 - 32.6 pg 09/18/2023 10:31 PM [facility] LABORATORY SERVICES - [facility] MCHC 34.2 31.5 - 35.5 g/dL 09/18/2023 10:31 PM [facility] LABORATORY SERVICES - [facility] RDW 15.1(H) 11.5 - 14.5 % 09/18/2023 10:31 PM [facility] LABORATORY SERVICES - [facility] RDW-STDEV 45.4 37.1 - 48.7 fL 09/18/2023 10:31 PM [facility]ORY SERVICES - [facility] PLATELETS 425(H) 140 - 350 K/uL 09/18/2023 10:31 PM [facility] LABORATORY SERVICES - [facility] MPV 8.9(L) 9.3 - 12.4 fL 09/18/2023 10:31 PM [facility] LABORATORY SERVICES - [facility] NEUTROPHILS 70 % 09/18/2023 10:31 PM [facility] LABORATORY SERVICES - . [facility] LYMPHOCYTES 24 % 09/18/2023 10:31 PM [facility] - . [facility] MONOCYTES 4 % 09/18/2023 10:31 PM [facility] - . [facility] EOSINOPHILS 1 % 09/18/2023 10:31 PM [facility] LABORATORY SERVICES - . [facility] BASOPHILS 1 % 09/18/2023 10:31 PM [facility] LABORATORY SERVICES - . [facility] IMMATURE GRANULOCYTES 1 % 09/18/2023 10:31 PM [facility] LABORATORY SERVICES - . [facility] Comment:IG (Immature Granulo cyte) count includes Metamyelocytes, Myelocytes, and Promyelocytes NEUTROPHIL ABSOLUTE 9.19(H) 1.90 - 7.00 K/uL 09/18/2023 10:31 PM CDT [facility]ORY [facility] - [facility] LYMPHOCYTE ABSOLUTE 3.22 0.70 - 4.50 K/uL 09/18/2023 10:31 PM CDT [facility]ORY [facility] - [facility] MONOCYTE ABSOLUTE 0.56 0.10 - 1.30 K/uL 09/18/2023 10:31 PM CDT [facility] LABORATORY SERVICES - . [facility] EOSINOPHIL ABSOLUTE 0.09 0.00 - 0.70 K/uL 09/18/2023 10:31 PM CDT [facility] LABORATORY SERVICES - . [facility] BASOPHILS ABSOLUTE 0.06 0.00 - 0.20 K/uL 09/18/2023 10:31 PM CDT [facility] LAB[facility]ATORY SERVICES - [facility] IMMATURE GRANULOCYTES ABSOLUTE 0.11(H) 0.00 - 0.03 K/uL 09/18/2023 10:31 PM CDT [facility] LAB[facility]ATORY SERVICES - [facility] Blood Venipuncture / Unknown 09/18/2023 10:18 PM CDT 09/18/2023 10:26 PM CDT Yojana Washington MD HEMATOLOGY ORDER [facility]# [id number] [address] [place] [address] * TROPONIN BASELINE, 5TH GEN (09/18/2023 10:18 PM CDT) TROPONIN T, BASELINE 5TH GEN <6 <=10 ng/L 09/18/2023 10:51 PM CDT [facility] LAB[facility]ORY [facility] Blood Venipuncture / Unknown 09/18/2023 10:18 PM CDT 09/18/2023 10:26 PM CDT Narrative [facility] LABORATORY SERVICES - [facility] - 09/18/2023 10:51 PM CDT Troponin Undetectable Yojana Antonella Washington MD CHEMISTRY ORDERA BLES [facility]# [id number] [address] [place] [address] * EKG 12-LEAD (09/18/2023 9:01 PM CDT) 09/18/2023 9:01 PM CDT Narrative INTERFACE SYSTEM - 09/19/2023 6:40 AM CDT ? [facility] ? [address] [place] [address] ? Test Date: ?2023-09-18 Pat Name: ? CASANDRA SELAM ?Department: ?? 38 ?Room: ? H02 Gender: ? Female ? [employer]ian [employer]: ?? 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 Requested By: ? Order Number: [id number] ? Reading MD: ?? Kali Varela ? Measurements Intervals ?Dewey ? Rate: ? 97 ? P: ?52 SD: ? 152 ?QRS: ?60 QRSD: ? 88 ? T: ?-3 QT: ? 347 ? QTc: ?441 ? Interpretive Statements Sinus rhythm Left atrial enlargement, consider biatrial enlargement Baseline wander in leads II, III Nonspecific T wave changes Electronically Signed On 09-19-2023 6:40:51 CDT by Kali Varela Procedure Note Kali Varela MD - 09/19/2023 [facility] [address] [place] [address] Test Date: 2023-09-18 Pat Name: CASANDRA DOSS Department: 38 Room: 2 Gender: Female [employer]: bhavana : 1975 Requested By: Order Number: [id number] Reading MD: Kali Varela Measurements Intervals Dewey Rate: 97 P: 52 SD: 152 QRS: 60 QRSD: 88 T: -3 QT: 347 QTc: 441 Interpretive Statements Sinus rhythm Left atrial enlargement, consider biatrial enlargement Baseline wander in leads II, III Nonspecific T wave changes Electronically Signed On 09-19-2023 6:40:51 CDT by Kali Varela Yojana Washington MD ECG ORDERABLES INTERFACE SYSTEM Refer to clinic/hospital department documented in this encounter Visit Diagnoses Diagnosis Acute on chronic pancreatitis- Primary Syncope and collapse Other acute pancreatitis, unspecified complication status Atherosclerosis of coronary artery, unspecified vessel or lesion type, unspecified whether angina present, unspecified whether [place] or transplanted heart Chylomicronemia syndrome Hyperchylomicronemia Acute on chronic pancreatitis Other acute pancreatitis without infection or necrosis Syncope and collapse Atherosclerosis of coronary artery Chylomicronemia syndrome Hyperchylomicronemia Hypertriglyceridemia Pure hyperglyceridemia documented in this encounter Administered Medications Inactive Administered Medications - up to 3 most recent administrations Medication Order MAR Action Action Date Dose Rate Site acetaminophen (TYLENOL) tablet 650 mg 650 mg, Oral, EVERY 6 HOURS PRN, Starting on Sat09/19/23 at 0801, Until Sat09/26/23 at 2045, Other (See Comment), See admin instructions, Routine Given 09/23/2023 6:34 AM CDT 650 mg Given 09/22/2023 11:39 PM CDT 650 mg Given 09/22/2023 6:39 AM CDT 650 mg ALPRAZolam (XANAX) tablet 0.5 mg 0.5 mg, Oral, ONE TIME ONLY, 1 dose, On Sat09/19/23 at 2215, Routine Given 09/20/2023 12:51 AM CDT 0.5 mg aspirin (ECOTRIN EC) tablet 81 mg 81 mg, Oral, DAILY, First dose on Sat09/19/23 at 1130, Until Discontinued, Routine Given 09/26/2023 5:20 AM CDT 81 mg Given 09/25/2023 5:36 AM CDT 81 mg Given 09/24/2023 5:21 AM CDT 81 mg atorvastatin (LIPITOR) tablet 80 mg 80 mg, Oral, DAILY AT BEDTIME, First dose (after last modification) on Sat09/19/23 at 2100, Until Discontinued, Routine Given 09/25/2023 9:30 PM CDT 80 mg Given 09/24/2023 8:21 PM CDT 80 mg Given 09/23/2023 8:17 PM CDT 80 mg citalopram (CeleXA) tablet 40 mg 40 mg, Oral, DAILY, First dose on Sat09/19/23 at 1130, Until Discontinued, Routine Given 09/26/2023 5:20 AM CDT 40 mg Given 09/25/2023 5:35 AM CDT 40 mg Given 09/24/2023 5:20 AM CDT 40 mg dextrose 5 % in water 250 mL flush bag 25 mL 25 mL, IV, SEE ADMIN INSTRUCTIONS, Starting on Sat09/18/23 at 2201, Until Sat09/26/23 at 2045, Routine dextrose 5% - sodium chloride 0.45% infusion IV, at 150 mL/hr, CONTINUOUS, Starting on Sat09/19/23 at 1500, Until Sat09/22/23 at 1024, Routine New Bag 09/22/2023 7:52 AM CDT 150 mL /hr New Bag 09/22/2023 1:06 AM CDT 150 mL/hr New Bag 09/21/2023 6:19 PM CDT 150 mL/hr diphenhydrAMINE (BENADRYL) injection 25 mg 25 mg, IV, ONE TIME ONLY, 1 dose, On Sat09/25/23 at 0900, Routine Given 09/25/2023 9:37 AM CDT 25 mg diphenhydrAMINE (BENADRYL) injection 25 mg 25 mg, IV, ONE TIME ONLY, 1 dose, On Sat09/25/23 at 1815, Routine Given 09/25/2023 9:23 PM CDT 25 mg diphenhydrAMINE (BENADRYL) injection 25 mg 25 mg, IV, ONE TIME ONLY, 1 dose, On Sat09/26/23 at 0800, Routine Given 09/26/2023 9:02 AM CDT 25 mg docusate sodium (COLACE) capsule 100 mg 100 mg, Oral, TWO TIMES DAILY, First dose on Sat09/24/23 at 0800, Until Discontinued, Routine Given 09/26/2023 5:19 AM CDT 100 mg Given 09/25/2023 5:46 PM CDT 100 mg Given 09/25/2023 5:36 AM CDT 100 mg enoxaparin (LOVENOX) injection 40 mg 40 mg, subCUT, EVERY 24 HOURS, First dose on Sat09/19/23 at 0900, Until Discontinued, Routine, Indication: Prophylaxis of VTE, Dose to be adjusted per facility protocol? Yes Given 09/21/2023 8:03 AM CDT 40 mg Abdom inal Tissue Given 09/20/2023 8:00 AM CDT 40 mg Ab domen, Right Lower Quadrant Given 09/19/2023 9:09 AM CDT 40 mg Ab dominal Tissue enoxaparin (LOVENOX) injection 40 mg 40 mg, subCUT, EVERY 24 HOURS, First dose on Sat09/24/23 at 2000, Until Discontinued, Routine, Indication: Prophylaxis of VTE Given 09/25/2023 9:36 PM CDT 40 mg Abdomen, Left Upper Quadrant Given 09/24/2023 8:22 PM CDT 40 mg Ab domen, Left Lower Quadrant fenofibrate (LOFIBRA) tablet 160 mg 160 mg, Oral, DAILY, First dose on Sat09/19/23 at 1130, Until Discontinued, Routine Given 09/26/2023 5:19 AM CDT 160 mg Given 09/25/2023 5:35 AM CDT 160 mg Given 09/24/2023 5:20 AM CDT 160 mg heparin injection 5,000 Units 5,000 Units, subCUT, EVERY 8 HOURS, First dose on Sat09/21/23 at 1300, Until Discontinued, Routine Given 09/24/2023 5:24 AM CDT 5,000 Units Abdomen, Left Lower Quadrant Given 09/23/2023 8:17 PM CDT 5,000 Units A bdomen, Left Lower Quadrant Given 09/23/2023 1:40 PM CDT 5,000 Units A bdomen, Left Lower Quadrant hydromorPHONE (PF) (DILAUDID) 1 mg/mL syringe 0.3 mg 0.3 mg, IV, EVERY 4 HOURS PRN, Starting on Sat09/19/23 at 1208, Until Sat09/26/23 at 2045, Pain (See admin instructions), Pain, Break-Through, Routine Given 09/26/2023 5:21 AM CDT 0.3 mg Given 09/26/2023 1:21 AM CDT 0.3 mg Given 09/25/2023 9:19 PM CDT 0.3 mg hydromorPHONE (PF) (DILAUDID) 1 mg/mL syringe 0.5 mg 0.5 mg, IV, EVERY 2 HOURS PRN, 3 doses, Starting on Sat09/19/23 at 0508, Until Katie 09/19/23 at 1032, Pain (See admin instructions), Routine Given 09/19/2023 9:10 AM CDT 0.5 mg Given 09/19/2023 5:33 AM CDT 0.5 mg insulin glargine-yfgn injection 10 Units 10 Units, subCUT, DAILY WITH BREAKFAST, First dose on Sat09/19/23 at 1130, Until Discontinued, Routine, On hold since Sat09/19/2023 at 1444 until manually unheld Given 09/19/2023 1:15 PM CDT 10 Units Abdominal Tissue insulin glargine-yfgn injection 15 Units 15 Units, subCUT, DAILY WITH BREAKFAST, First dose (after last modification) on Sat09/22/23 at 1100, Until Discontinued, Routine Given 09/26/2023 9:07 AM CDT 15 Units Arm, Right Upper Given 09/25/2023 9:41 AM CDT 15 Units Ab dominal Tissue Given 09/24/2023 8:54 AM CDT 15 Units Ar m, Right Upper insulin lispro (HumaLOG,ADMELOG) injection 0-12 Units 0-12 Units, subCUT, THREE TIMES DAILY WITH MEALS, First dose on Sat09/22/23 at 1200, Until Discontinued, Routine Given 09/26/2023 9:06 AM CDT 2 Units Arm, Left Upper Given 09/25/2023 5:50 PM CDT 2 Units Ar m, Left Upper Given 09/25/2023 1:16 PM CDT 4 Units Ab domen, Left Lower Quadrant insulin lispro (HumaLOG,ADMELOG) injection 0-6 Units 0-6 Units, subCUT, EVERY 4 HOURS, First dose on Sat09/19/23 at 1200, Until Discontinued, Routine, On hold since Sat09/19/2023 at 1444 until manually unheld Given 09/19/2023 1:15 PM CDT 1 Units Abdominal Tissue insulin lispro (HumaLOG,ADMELOG) injection 0-6 Units 0-6 Units, subCUT, DAILY AT BEDTIME, First dose on Sat09/22/23 at 2100, Until Discontinued, Routine insulin lispro (HumaLOG,ADMELOG) injection 5 Units 5 Units, subCUT, THREE TIMES DAILY WITH MEALS, First dose on Sat09/22/23 at 1200, Until Discontinued, Routine Given 09/26/2023 9:06 AM CDT 5 Units Arm, Left Upper Given 09/25/2023 5:51 PM CDT 5 Units Ar m, Left Upper Given 09/25/2023 1:17 PM CDT 5 Units Ab domen, Left Lower Quadrant insulin regular 1 Units/mL in sodium chloride 0.9% infusion 0-25 Units/hr (0-25 mL/hr), IV, TITRATE, Starting on Sat09/19/23 at 1500, Until Sat09/24/23 at 1448, On hold since Sat09/22/2023 at 1024 until manually unheld Rate Verify 09/22/2023 10:10 AM CDT 1 Units/hr 1 mL/hr Rate Verify 09/22/2023 9:36 AM CDT 1 Units/hr 1 mL/hr Rate Verify 09/22/2023 8:17 AM CDT 1 Units/hr 1 mL/hr iopamidoL (ISOVUE-300) 61% injection (drawn from multi-use bulk pack) 90 mL 90 mL, IV, INTRA-PROCEDURE ONCE, 1 dose, Starting on Sat09/19/23 at 1202, Until Sat09/19/23 at 1202, Routine Contrast Given 09/19/2023 12:02 PM CDT 90 mL ketorolac (TORADOL) injection 10 mg 10 mg, IV, ONE TIME ONLY, 1 dose, On Sat09/25/23 at 0900, Routine Given 09/25/2023 9:38 AM CDT 10 mg ketorolac (TORADOL) injection 10 mg 10 mg, IV, ONE TIME ONLY, 1 dose, On Sat09/26/23 at 0800, Routine Given 09/26/2023 9:02 AM CDT 10 mg levothyroxine (SYNTHROID) tablet 100 mcg 100 mcg, Oral, DAILY EARLY, First dose on Sat09/23/23 at 0600, Until Discontinued, Routine Given 09/26/2023 5:19 AM CDT 100 mcg Given 09/25/2023 5:36 AM CDT 100 mcg Given 09/24/2023 5:18 AM CDT 100 mcg levothyroxine (SYNTHROID) tablet 125 mcg 125 mcg, Oral, DAILY EARLY, First dose on Sat09/22/23 at 0800, Until Discontinued, Routine Given 09/26/2023 5:24 AM CDT 125 mcg Given 09/25/2023 5:35 AM CDT 125 mcg Given 09/24/2023 5:19 AM CDT 125 mcg levothyroxine (SYNTHROID) tablet 200 mcg 200 mcg, Oral, DAILY EARLY, First dose on Sat09/19/23 at 1015, Until Discontinued, Routine Given 09/19/2023 11:03 AM CDT 200 mcg levothyroxine (SYNTHROID) tablet 225 mcg 225 mcg, Oral, DAILY EARLY, First dose (after last modification) on Sat09/20/23 at 0600, Until Discontinued, Routine Given 09/22/2023 6:39 AM CDT 224 mcg Given 09/21/2023 6:14 AM CDT 224 mcg Given 09/20/2023 6:25 AM CDT 224 mcg nmiqjj-ejkoubub-ecslbpu DR MAGUIRE) 36,000-114,000-180,000 unit per capsule 2 Capsule 2 Capsule, Oral, THREE TIMES DAILY WITH MEALS, First dose on Sat09/22/23 at 1700, Until Discontinued, Routine Given 09/26/2023 12:00 PM CDT 2 Capsule s Given 09/25/2023 5:00 PM CDT 2 Capsules Given 09/25/2023 12:00 PM CDT 2 Capsules magnesium sulfate in water 2 gram/50 mL (4 %) IVPB 2 Gram 2 Gram, IV, ONE TIME ONLY, 1 dose, On Sat09/25/23 at 1815, Routine New Bag 09/25/2023 9:29 PM CDT 2 Grams 25 mL/hr metoprolol succinate (TOPROL XL) SR 24 hour tablet 12.5 mg 12.5 mg, Oral, DAILY, First dose on Sat09/19/23 at 1130, Until Discontinued, Routine Given 09/26/2023 5:26 AM CDT 12.5 mg Given 09/25/2023 5:49 AM CDT 12.5 mg Given 09/24/2023 5:19 AM CDT 12.5 mg naloxone (NARCAN) 0.4 mg/mL injection 0.1-0.4 mg 0.1-0.4 mg, IV, SEE ADMIN INSTRUCTIONS, Starting on Sat09/20/23 at 1330, Until Sat09/26/23 at 2045, Routine ondansetron (ZOFRAN) 4 mg/2 mL injection 4 mg 4 mg, IV, ONE TIME ONLY, 1 dose, On Sat09/19/23 at 0100, Routine Given 09/19/2023 12:57 AM CDT 4 mg ondansetron (ZOFRAN) 4 mg/2 mL injection 4 mg 4 mg, IV, EVERY 6 HOURS PRN, Starting on Sat09/19/23 at 0801, Until Sat09/26/23 at 2044, Nausea/Emesis, Routine Given 09/25/2023 9:45 AM CDT 4 mg Given 09/24/2023 4:09 PM CDT 4 mg Given 09/24/2023 9:37 AM CDT 4 mg oxyCODONE (ROXICODONE) tablet 10 mg 10 mg, Oral, EVERY 4 HOURS PRN, Starting on Sat09/25/23 at 1817, Until Sat09/26/23 at 2044, Pain (See admin instructions), Pain, Severe, Routine oxyCODONE (ROXICODONE) tablet 5 mg 5 mg, Oral, EVERY 4 HOURS PRN, Starting on Sat09/19/23 at 1032, Until Sat09/25/23 at 1817, Pain (See admin instructions), Pain, Severe, Routine Given 09/25/2023 5:47 PM CDT 5 mg Given 09/25/2023 9:44 AM CDT 5 mg Given 09/25/2023 1:13 AM CDT 5 mg pantoprazole (PROTONIX) tablet 40 mg 40 mg, Oral, DAILY BEFORE BREAKFAST, First dose on Sat09/19/23 at 1015, Until Discontinued, Routine, Indication: Gastroesophageal reflux disease (GERD) Given 09/26/2023 5:20 AM CDT 40 mg Given 09/25/2023 5:36 AM CDT 40 mg Given 09/24/2023 5:19 AM CDT 40 mg perflutren lipid microspheres (DEFINITY) 1.1 mg/mL injection 2 mL 2 mL, IV, INTRA-PROCEDURE ONCE, 1 dose, Starting on Sat09/20/23 at 1100, Until Sat09/20/23 at 1040, Routine Contrast Given 09/20/2023 10:40 AM CDT 2 mL polyethylene glycol (MIRALAX) packet 17 Gram 17 Gram, Oral, DAILY PRN, Starting on Sat09/24/23 at 0753, Until Sat09/26/23 at 2044, Constipation, Routine sennosides (SENOKOT) tablet 8.6 mg 8.6 mg, Oral, TWO TIMES DAILY, First dose on Sat09/24/23 at 0800, Until Discontinued, Routine Given 09/26/2023 5:19 AM CDT 8.6 mg Given 09/25/2023 5:46 PM CDT 8.6 mg Given 09/25/2023 5:36 AM CDT 8.6 mg sodium chloride 0.9 % 250 mL flush bag 25 mL 25 mL, IV, SEE ADMIN INSTRUCTIONS, Starting on Sat09/18/23 at 2201, Until Sat09/26/23 at 2044, Routine sodium chloride 0.9% bolus solution 1,000 mL 1,000 mL, IV, ONE TIME ONLY, 1 dose, On Sat09/19/23 at 0515, at 2,000 mL/hr, Administer over 30 Minutes, Routine Bolus 09/19/2023 5:37 AM CDT 1,000 mL 2000 mL/hr sodium chloride 0.9% bolus solution 1,000 mL 1,000 mL, IV, ONE TIME ONLY, 1 dose, On Sat09/26/23 at 0800, at 2,000 mL/hr, Administer over 30 Minutes, Routine New Bag 09/26/2023 9:11 AM CDT 1,000 mL 2000 mL/hr sodium chloride 0.9% infusion IV, at 150 mL/hr, CONTINUOUS, Starting on Sat09/19/23 at 1045, Until Sat09/19/23 at 1452, Routine New Bag 09/19/2023 12:36 PM CDT 150 mL/hr sodium chloride 0.9% infusion IV, at 75 mL/hr, CONTINUOUS, Starting on Sat09/22/23 at 1030, Until Sat09/23/23 at 1029, Routine Rate Verify 09/23/2023 8:42 AM CDT 75 mL/hr New Bag 09/23/2023 12:31 AM CDT 75 mL/hr New Bag 09/22/2023 10:57 AM CDT 75 mL/hr sodium chloride flush injection 5 mL 5 mL, IV, EVERY 12 HOURS (BlD), First dose on Sat09/18/23 at 2215, Until Discontinued, Routine Given 09/26/2023 5:29 AM CDT 5 mL Given 09/25/2023 6:00 PM CDT 5 mL Given 09/25/2023 5:50 AM CDT 5 mL sodium chloride flush injection 5 mL 5 mL, IV, SEE ADMIN INSTRUCTIONS, Starting on Sat09/18/23 at 2201, Until Sat09/26/23 at 2045, Routine Feeding Started 09/22/2023 11:32 AM CDT 5 mL ticagrelor (BRILINTA) tablet 90 mg 90 mg, Oral, TWO TIMES DAILY, First dose on Sat09/19/23 at 1130, Until Discontinued, Routine Given 09/26/2023 5:20 AM CDT 90 mg Given 09/25/2023 5:48 PM CDT 90 mg Given 09/25/2023 5:50 AM CDT 90 mg traZODone (DESYREL) tablet 100 mg 100 mg, Oral, DAILY AT BEDTIME, First dose on Sat09/19/23 at 2100, Until Discontinued, Routine Given 09/25/2023 9:29 PM CDT 100 mg Given 09/24/2023 8:21 PM CDT 100 mg Given 09/23/2023 8:17 PM CDT 100 mg documented in this encounter Active and Recently Administered Medications Times are shown in CDT. Scheduled Medication Order 09/24/2023 09/25/2023 09/26/2023 aspirin (ECOTRIN EC) tablet 81 mg 81 mg, Oral, DAILY, First dose on Sat09/19/23 at 1130, Until Discontinued, Routine 05 (Given - Provider: Brandi Macias RN) 0536 (Given - Provider: Vicki Pride, CLAU) 0520 (Given - Provider: Vicki Pride, CLAU) atorvastatin (LIPITOR) tablet 80 mg 80 mg, Oral, DAILY AT BEDTIME, First dose (after last modification) on Sat09/19/23 at 2100, Until Discontinued, Routine 2020 (Given - Provider: Brandi Macias RN) 2129 (Given - Provider: Vicki Pride, RN) citalopram (CeleXA) tablet 40 mg 40 mg, Oral, DAILY, First dose on Sat09/19/23 at 1130, Until Discontinued, Routine 0520 (Given - Provider: Brandi Macias RN) 0535 (Given - Provider: Vicki Pride RN) 0520 (Given - Provider: Vicki Pride RN) dextrose 5 % in water 250 mL flush bag 25 mL 25 mL, IV, SEE ADMIN INSTRUCTIONS, Starting on Sat09/18/23 at 2201, Until Sat09/26/23 at 2045, Routine diphenhydrAMINE (BENADRYL) injection 25 mg (COMPLETED) 25 mg, IV, ONE TIME ONLY, 1 dose, On Sat09/25/23 at 0900, Routine 0937 (Given - Provider: Uyen Mcdowell RN) diphenhydrAMINE (BENADRYL) injection 25 mg (COMPLETED) 25 mg, IV, ONE TIME ONLY, 1 dose, On Sat09/25/23 at 1815, Routine 2122 (Given - Provider: Vicki Pride RN) diphenhydrAMINE (BENADRYL) injection 25 mg (COMPLETED) 25 mg, IV, ONE TIME ONLY, 1 dose, On Sat09/26/23 at 0800, Routine 0902 (Given - Provider: Shonna David LPN) docusate sodium (COLACE) capsule 100 mg 100 mg, Oral, TWO TIMES DAILY, First dose on Sat09/24/23 at 0800, Until Discontinued, Routine 0854 (Given - Provider: BLAISE Toth)1715 (Given - Provider: BLAISE Toth) 0536 (Given - Provider: Vicki Pride RN)1746 (Given - Provider: Uyen Mcdowell RN) 0519 (Given - Provider: Vicki Pride RN)1800 (Refused - Provider: Shonna David LPN) enoxaparin (LOVENOX) injection 40 mg 40 mg, subCUT, EVERY 24 HOURS, First dose on Sat09/24/23 at 2000, Until Discontinued, Routine, Indication: Prophylaxis of VTE 2021 (Given - Provider: Brandi Macias RN) 2135 (Given - Provider: Vicki Pride RN) fenofibrate (LOFIBRA) tablet 160 mg 160 mg, Oral, DAILY, First dose on Katie 09/19/23 at 1130, Until Discontinued, Routine 0520 (Given - Provider: Brandi Macias RN) 0535 (Given - Provider: Vicki Pride, CLAU) 0519 (Given - Provider: Vicki Pride, CLAU) heparin injection 5,000 Units (CANCELED) 5,000 Units, subCUT, EVERY 8 HOURS, First dose on 09/21/23 at 1300, Until Discontinued, Routine 0524 (Given - Provider: Brandi Macias RN) insulin glargine-yfgn injection 15 Units 15 Units, subCUT, DAILY WITH BREAKFAST, First dose (after last modification) on 09/22/23 at 1100, Until Discontinued, Routine 0854 (Given - Provider: BLAISE Toth) 0941 (Given - Provider: Uyen Mcdowell RN) 0907 (Given - Provider: Shonna David LPN) insulin lispro (HumaLOG,ADMELOG) injection 0-12 Units 0-12 Units, subCUT, THREE TIMES DAILY WITH MEALS, First dose on 09/22/23 at 1200, Until Discontinued, Routine 0800 (Not Given - Provider: BLAISE Toth - Reason: Lab results - Comment: BG 117)1157 (Given - Provider: BLAISE Toth - Comment: BG 205)1700 (Not Given - Provider: BLAISE Toth - Reason: Lab results - Comment: BG 110) 0800 (Not Given - Provider: Uyen Mcdowell RN - Reason: Lab results)1316 (Given - Provider: Uyen Mcdowell RN)1750 (Given - Provider: Uyen Mcdowell RN) 0906 (Given - Provider: Shonna David LPN)1200 (Not Given - Provider: Shonna David LPN - Reason: Patient condition)1700 (Not Given - Provider: Shonna David LPN - Reason: Other - See Comment - Comment: PT not eating dinner here) insulin lispro (HumaLOG,ADMELOG) injection 0-6 Units 0-6 Units, subCUT, DAILY AT BEDTIME, First dose on 09/22/23 at 2100, Until Discontinued, Routine 0000 (Not Given - Provider: Brandi Macias RN - Reason: Patient condition - Comment: bg 155)2100 (Not Given - Provider: Brandi Macias RN - Reason: Patient condition - Comment: bg 178) 2100 (Not Given - Provider: Vicki Pride RN - Reason: Patient condition - Comment: bg 202) insulin lispro (HumaLOG,ADMELOG) injection 5 Units 5 Units, subCUT, THREE TIMES DAILY WITH MEALS, First dose on 09/22/23 at 1200, Until Discontinued, Routine 0854 (Given - Provider: BLAISE Toth)1156 (Given - Provider: BLAISE Toth)1716 (Given - Provider: BLAISE Toth) 0945 (Given - Provider: Uyen Mcdowell RN)1317 (Given - Provider: Uyen Mcdowell RN)1751 (Given - Provider: Uyen Mcdowell RN) 0906 (Given - Provider: Shonna David LPN)1200 (Not Given - Provider: Shonna David LPN - Reason: Patient condition)1700 (Not Given - Provider: Shonna David LPN - Reason: Other - See Comment - Comment: pt not eating dinner here) ketorolac (TORADOL) injection 10 mg (COMPLETED) 10 mg, IV, ONE TIME ONLY, 1 dose, On Sat09/25/23 at 0900, Routine 0938 (Given - Provider: Uyen Mcdowell RN) ketorolac (TORADOL) injection 10 mg (COMPLETED) 10 mg, IV, ONE TIME ONLY, 1 dose, On Katie 09/26/23 at 0800, Routine 0902 (Given - Provider: Shonna David LPN) levothyroxine (SYNTHROID) tablet 100 mcg(Linked Group 1) 100 mcg, Oral, DAILY EARLY, First dose on Sat09/23/23 at 0600, Until Discontinued, Routine 0518 (Given - Provider: Brandi Macias RN) 0536 (Given - Provider: Vicki Pride RN) 0519 (Given - Provider: Vicki Pride, CLAU) levothyroxine (SYNTHROID) tablet 125 mcg(Linked Group 1) 125 mcg, Oral, DAILY EARLY, First dose on 5/26/24 at 0800, Until Discontinued, Routine 0519 (Given - Provider: Brandi Macias, CLAU) 0535 (Given - Provider: Vicki Pride RN) 0524 (Given - Provider: Vicki Pride RN) bzgrlb-rjxdysxb-mvgvyss DR (AMELIA) 36,000-114,000-180,000 unit per capsule 2 Capsule 2 Capsule, Oral, THREE TIMES DAILY WITH MEALS, First dose on Sat09/22/23 at 1700, Until Discontinued, Routine 0800 (Given - Provider: BLAISE Toth)1200 (Given - Provider: BLAISE Toth - Comment: per pt, only 1 capsule with snacks and pt PO intake poor, attending notified)1700 (Given - Provider: BLAISE Toth) 0800 (Given - Provider: Uyen Mcdowell RN)1200 (Given - Provider: Uyen Mcdowell RN)1700 (Given - Provider: Uyen Mcdowell RN) 0800 (Refused - Provider: Shonna David LPN)1200 (Given - Provider: Shonna David LPN)1700 (Refused - Provider: Shonna David LPN) magnesium sulfate in water 2 gram/50 mL (4 %) IVPB 2 Gram (COMPLETED) 2 Gram, IV, ONE TIME ONLY, 1 dose, On Sat09/25/23 at 1815, Routine 2129 (New Bag - Provider: Vicki Pride RN)2329 (Stopped - Provider: Vicki Pride RN) metoprolol succinate (TOPROL XL) SR 24 hour tablet 12.5 mg 12.5 mg, Oral, DAILY, First dose on Sat09/19/23 at 1130, Until Discontinued, Routine 0519 (Given - Provider: Brandi Macias RN) 0549 (Given - Provider: Vicki Pride RN) 0526 (Given - Provider: Vicki Pride RN) naloxone (NARCAN) 0.4 mg/mL injection 0.1-0.4 mg 0.1-0.4 mg, IV, SEE ADMIN INSTRUCTIONS, Starting on Sat09/20/23 at 1330, Until Sat09/26/23 at 2045, Routine pantoprazole (PROTONIX) tablet 40 mg 40 mg, Oral, DAILY BEFORE BREAKFAST, First dose on Sat09/19/23 at 1015, Until Discontinued, Routine, Indication: Gastroesophageal reflux disease (GERD) 0519 (Given - Provider: Brandi Macias RN) 0536 (Given - Provider: Vicki Pride RN) 0520 (Given - Provider: Vicki Pride RN) sennosides (SENOKOT) tablet 8.6 mg 8.6 mg, Oral, TWO TIMES DAILY, First dose on Sat09/24/23 at 0800, Until Discontinued, Routine 0854 (Given - Provider: BLAISE Toth)1715 (Given - Provider: BLAISE Toth) 0536 (Given - Provider: Vicki Pride RN)1746 (Given - Provider: Uyen Mcdowell RN) 0519 (Given - Provider: Vicki Pride RN)1800 (Refused - Provider: Shonna David LPN) sodium chloride 0.9 % 250 mL flush bag 25 mL 25 mL, IV, SEE ADMIN INSTRUCTIONS, Starting on Sat09/18/23 at 2201, Until Sat09/26/23 at 2044, Routine sodium chloride 0.9% bolus solution 1,000 mL (COMPLETED) 1,000 mL, IV, ONE TIME ONLY, 1 dose, On Sat09/26/23 at 0800, at 2,000 mL/hr, Administer over 30 Minutes, Routine 0911 (New Bag - Provider: Shonna David LPN)0941 (Stopped - Provider: Shonna David LPN) sodium chloride flush injection 5 mL 5 mL, IV, EVERY 12 HOURS (BlD), First dose on Sat09/18/23 at 2215, Until Discontinued, Routine 0521 (Given - Provider: Brandi Macias RN)1800 (Not Given - Provider: BLAISE Toth - Reason: Medication already given) 0550 (Given - Provider: Vicki Pride RN)1800 (Given - Provider: Uyen Mcdowell RN) 0529 (Given - Provider: Vicki Pride RN)1800 (Refused - Provider: Shonna David LPN) sodium chloride flush injection 5 mL 5 mL, IV, SEE ADMIN INSTRUCTIONS, Starting on Sat09/18/23 at 2201, Until Sat09/26/23 at 2044, Routine ticagrelor (BRILINTA) tablet 90 mg 90 mg, Oral, TWO TIMES DAILY, First dose on Sat09/19/23 at 1130, Until Discontinued, Routine 0625 (Given - Provider: Brandi Macias RN)1720 (Given - Provider: BLAISE Toth) 0550 (Given - Provider: Vicki Pride RN)1748 (Given - Provider: Uyen Mcdowell RN) 0520 (Given - Provider: Vicki Pride RN)1800 (Refused - Provider: Shonna David LPN) traZODone (DESYREL) tablet 100 mg 100 mg, Oral, DAILY AT BEDTIME, First dose on Sat09/19/23 at 2100, Until Discontinued, Routine 2020 (Given - Provider: Brandi Macias RN) 2128 (Given - Provider: Vicki Pride RN) PRN Medication Order 09/24/2023 09/25/2023 09/26/2023 acetaminophen (TYLENOL) tablet 650 mg 650 mg, Oral, EVERY 6 HOURS PRN, Starting on Sat09/19/23 at 0801, Until Sat09/26/23 at 2044, Other (See Comment), See admin instructions, Routine hydromorPHONE (PF) (DILAUDID) 1 mg/mL syringe 0.3 mg 0.3 mg, IV, EVERY 4 HOURS PRN, Starting on Sat09/19/23 at 1208, Until Katie 09/26/23 at 2044, Pain (See admin instructions), Pain, Break-Through, Routine 0049 (Given - Provider: Brandi Macias RN)0521 (Given - Provider: Brandi Macias RN)0937 (Given - Provider: BLAISE Toth)1357 (Given - Provider: BLAISE Ritter)1715 (Given - Provider: BLAISE Toth)2107 (Given - Provider: Vicki Pride RN) 0148 (Given - Provider: Vicki Pride RN)0540 (Given - Provider: Vicki Pride RN)1145 (Given - Provider: Uyen Mcdowell, CLAU)211 (Given - Provider: Vicki Pride RN) 012 (Given - Provider: Vicki Pride RN)0521 (Given - Provider: Vicki Pride RN) ondansetron (ZOFRAN) 4 mg/2 mL injection 4 mg 4 mg, IV, EVERY 6 HOURS PRN, Starting on Sat09/19/23 at 0801, Until Sat09/26/23 at 2045, Nausea/Emesis, Routine 0937 (Given - Provider: BLAISE Toth)1609 (Given - Provider: BLAISE Toth) 0945 (Given - Provider: Uyen Mcdowell RN) oxyCODONE (ROXICODONE) tablet 10 mg 10 mg, Oral, EVERY 4 HOURS PRN, Starting on Sat09/25/23 at 1817, Until Sat09/26/23 at 204, Pain (See admin instructions), Pain, Severe, Routine oxyCODONE (ROXICODONE) tablet 5 mg (CANCELED) 5 mg, Oral, EVERY 4 HOURS PRN, Starting on Sat09/19/23 at 1032, Until Sat09/25/23 at 1817, Pain (See admin instructions), Pain, Severe, Routine 0353 (Given - Provider: Brandi Macias RN)0740 (Given - Provider: BLAISE Toth)1156 (Given - Provider: BLAISE Toth)1609 (Given - Provider: BLAISE Toth)2020 (Given - Provider: Brandi Macias RN) 0113 (Given - Provider: Vicki Pride RN)0537 (Refused - Provider: Vicki Pride RN - Comment: wanted dilaudid)0944 (Given - Provider: Uyen Mcdowell, CLAU)1747 (Given - Provider: Uyen Mcdowell, CLAU) polyethylene glycol (MIRALAX) packet 17 Gram 17 Gram, Oral, DAILY PRN, Starting on Sat09/24/23 at 0753, Until Sat09/26/23 at 2045, Constipation, Routine Linked Groups Order Group 1: levothyroxine (SYNTHROID) tablet 100 mcgJump to med 100 mcg, Oral, DAILY EARLY, First dose on 09/23/23 at 0600, Until Discontinued, Routine And levothyroxine (SYNTHROID) tablet 125 mcgJump to med 125 mcg, Oral, DAILY EARLY, First dose on 09/22/23 at 0800, Until Discontinued, Routine documented in this encounter Additional Health Concerns Infection Onset Date Last Indicated Resolved Time R/O GI Pathogen 09/19/2023 09/19/2023 09/21/2023 7 :33 AM CDT documented as of this encounter Care Teams Sugar Cane Farm Manager Relationship Specialty Start Date End Date Guerrero Middleton PA-C PCP - General Physician Fast Food Server 02/13/18 documented as of this encounter
--- OUTSIDE RECORDS SUMMARY | 2024-05-03 20:37 | XMS_ITS | Encounter Summary ---
Author Organization [facility] Address [address] Orozco: Epic Prelude ADT [place] [address] Care Team Providers Care Rn Allergy Name Role Phone Guerrero Middleton PA-C Primary Care Provide r Encounter Details Date Type Department Care Team (Latest Contact Info) Description 09/18/2023 Travel Social History Tobacco Use Types Packs/Day [...] week 08/21/2018 How often do you attend [facility] or jain services? Never 08/21/2018 Do you belong to any clubs o r organizations such as mandaeism groups, unions, fraternal or athletic groups, or [...] Description 09/14/2024 3:00 PM CDT Office Visit [facility] [address] [place] [address] Marlys Mayer MD [address] [place] [address] documented as of this encounter Visit Diagnoses Not on filedocumented in this encounter Care Teams Rn Allergy Relationship Specialty Start Date End Date Guerrero Middleton PA-C PCP - General Physician Respiratory Care Faculty 02/13/18 documented as of this encounter
--- OUTSIDE RECORDS SUMMARY | 2024-05-03 20:37 | XMS_ITS | Encounter Summary ---
Author Organization [facility] Address [address] [place] [address] Care Team Providers Care Lead Recreation Assistant Name Role Phone Guerrero Middleton PA-C Primary Care Provide r Encounter Details Date Type Department Care Team (Late st Contact Info) Description 10/22/2023 External Device Data ST[facility] ABSTRACTION Provider, Abstract [...] How often do you attend [facility] or religion services? Never 08/21/2018 Do you belong to [...] and Vascular - [address] [place] [address] [place] [address] Marlys Mayer MD [address] [place] [address] documented as of this encounter Visit Diagnoses Not on filedocumented in this encounter Care Teams Lead Recreation Assistant Relationship Specialty Start Date End Date Guerrero Middleton PA-C PCP - General Physician Veterans' Counselor 02/13/18 documented as of this encounter
--- OUTSIDE RECORDS SUMMARY | 2024-05-03 20:37 | XMS_ITS | Encounter Summary ---
Author Organization [facility] Address [address] [place] [address] Care Team Providers Care Lesson Instructor Name Role Phone Guerrero Middleton PA-C Primary Care Provide r Reason for Visit * Reason Onset Date Comments Needs Appointment 09/28/2021 Encounter Details Date Type Department Care Team (Late st Contact Info) Description 09/28/2021 Telephone [facility] [address] [place] [address] Phoenix Riddle MD [address] [place] [address] Needs Appointment Social History Tobacco Use Types Packs/Day Years [...] often do you attend chur ch or voodoo services? Never 08/21/2018 Do you belong to any clubs o r organizations such as bahai groups, unions, fraternal or athletic groups, or [...] [facility] [address] [place] [address] Marlys Mayer MD [address] [place] [address] documented as of this encounter Visit Diagnoses Not on filedocumented in this encounter Care Teams Lesson Instructor Relationship Specialty Start Date End Date Guerrero Middleton PA-C PCP - General Physician Ton Container Filler 02/13/18 documented as of this encounter
--- OUTSIDE RECORDS SUMMARY | 2024-05-03 20:37 | XMS_ITS | Encounter Summary ---
Author Organization [facility] Address [address] [place] [address] Care Team Providers Care Public Health Specialist Name Role Phone Guerrero Middleton PA-C [...] you attend [facility] or sabianism services? Never 08/21/2018 Do you belong to any clubs o r organizations such as jewish groups, unions, fraternal or athletic groups, or [...] Description 09/14/2024 3:00 PM CDT Office Visit [facility] Heart and Vascular - [address] [place] [address] [place] [address] Marlys Mayer MD [address] [place] [address] documented as of this encounter Visit Diagnoses Not on filedocumented in this encounter Care Teams Public Health Specialist Relationship Specialty Start Date End Date Guerrero Middleton PA-C PCP - General Physician Diver Pumper 02/13/18 documented as of this encounter
--- OUTSIDE RECORDS SUMMARY | 2024-05-03 20:37 | XMS_ITS | Encounter Summary ---
Author Organization [facility] Address [address] [place] [address] Care Team Providers Care Circular Shear Operator Name Role Phone Guerrero Middleton PA-C [...] 08/21/2018 How often do you attend [facility] or yazdanism services? Never 08/21/2018 Do you belong to [...] and Vascular - [place] [address] [place] [address] Marlys Mayer MD [address] [place] [address] documented as of this encounter Visit Diagnoses Not on filedocumented in this encounter Care Teams Circular Shear Operator Relationship Specialty Start Date End Date Guerrero Middleton PA-C PCP - General Physician Obstetrician And Gynaecologist 02/13/18 documented as of this encounter
--- OUTSIDE RECORDS SUMMARY | 2024-05-03 20:37 | XMS_ITS | Encounter Summary ---
Author Organization [facility] Address 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 Type 1 diabetes mellitus without complication Palpitations Syncope, unspecified syncope type Procedures MOBILE CARDIAC OUTPATIENT TELEMETRY Marlys Mayer MD [address] [place] [address] Referral ID Status Reason Start Date Expiration Date V isits Requested Visits Authorized [id number] Pending Review 11/18/2023 12/18/2024 1 1 Reason for Visit * Reason Comments Establish Care Encounter Details Date Type Department Care Team (Latest Contact Info) Description 11/18/2023 1:15 PM CDT Office Visit [facility] Heart and Vascular - [address] [place] [address] Marlys Mayer MD [address] [place] [address] Atherosclerosis of [place] coronary artery of [place] heart with stable angina pectoris (Primary Dx); Chylomicronemia syndrome; Type 1 diabetes mellitus without complication; Palpitations; Syncope, unspecified syncope type Social History Tobacco Use Types Packs/Day Years Used Date Smoking Tobacco: Every Day Cigarettes 1 18 Smokeless Tobacco: Never Tobacco Cessation:Ready to Q uit: Yes; Counseling Given: Yes Comments:nicotine patch requested Alcohol [...] often do you attend chur ch or jain services? Never 08/21/2018 Do you [...] Sign Reading Time Taken Comments Blood Pressure 111/70 11/18/2023 12:56 PM CDT Pulse 117 11/18/2023 12:56 PM CDT Temperature - - Respiratory Rate - - Oxygen Saturation 97% 11/18/2023 12:56 PM CDT Inhaled Oxygen Concentration - - Weight 83.9 kg (185 lb) 11/18/2023 12:56 PM CDT Height 165.1 cm (5' 5 ) 11/18/2023 12:56 PM CDT Body Mass Index 30.79 11/18/2023 12:56 PM CDT documented in this encounter Progress Notes * Marlys Mayer MD - 11/18/2023 1:30 PM CDT [facility] Heart [facility] Vascular New Patient Visit Casandra Jones, a 47 y.o. female, is a new patient re-establishing care with [facility] V[facility] for the following problems: ICD-10-CM ICD-9-CM 1. Atherosclerosis of [place] coronary artery of [place] heart with stable angina pectoris I25.118 414.01 413.9 2. 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 Type 1 diabetes mellitus without complication E10.9 250.01 4. Palpitations R00.2 785.1 5. Syncope, unspecified syncope type R55 780.2 Last seen in 09/2018 She had an TN in June 2023 while visiting he mother in [place] Do not have complete records but had TRACIE x3 Patient reports that she had another blockage but not related to acute event so now stent was placed One month prior to TN, she started having syncope -about every other week since then Reports she gets worn out early since her TN C/o palpitations Gets worn out easily Current Outpatient Medications Medication Sig Dispense Refill losartan potassium (LOSARTAN ORAL) Take by mouth. buspirone HCl (BUSPAR ORAL) Take by mouth. LORazepam (ATIVAN) 1 mg tablet Take 1 mg by mouth every 6 hours as needed for Anxiety. levothyroxine 125 mcg tablet Take 1 Tablet (125 mcg) by mouth daily in the morning. 30 Tablet 0 Tresiba FlexTouch U-200 200 unit/mL (3 mL) pen syringe Inject 20 Units by subcutaneous injection daily in the morning. ondansetron (ZOFRAN ODT) 4 mg Tablet, Rapid Dissolve Take 1 Tablet (4 mg) by mouth every 6 hours asneeded for Nausea/Emesis. 30 Tablet 0 insulin aspart U-100 (NovoLOG Flexpen U-100 Insulin) 100 unit/mL pen syringe Inject 5 Units by subcutaneous injection 3 times daily with meals. INJECT APPROXIMATELY 50 UNITS A DAY PER CORRECTION DOSEWITH MEALS jxphfl-udzmrdst-veyjswt DR (Marcella) 36,000-114,000-180,000 unit capsule Take 2 Capsules by [...] daily in the morning. 30 Tablet 0 Dexcom G6 Sensor Device Change sensor every 10 days. (9 sensors = 90 days) 9 Each 1 Dexcom G6 Transmitter Device Change transmitter every 90 days 1 Each 1 No current facility-administered medications for this visit. [...] replacement of left power flow port 05/11/2019 OR ESOPHAGOGASTRODUODENOSCOPY TRANSORAL DIAGNOSTIC N/A 03/08/2018 ESOPHAGOGASTRODUODENOSCOPY performed by Ceasar Vega MD at [facility] Social History Socioeconomic History Marital status: Spouse name: Not on file Number of children: Not on file Years of education: Not on file Highest education level: Not on file Occupational History Employer: [employer] Tobacco Use Smoking status: Every Day Current [...] and Family: Three times a week Attends Scientology Services: Never Active Member of Clubs or Organizations: No Attends Club or Organization Meetings: Never Marital Status: Intimate Partner Violence: Not At Risk (09/18/2023) Intimate Partner Violence Patient has indicated abuse: : No Housing Stability: Low Risk (09/19/2023) Housing Stability Patient needs follow up regarding:: No concerns Family History Problem Relation Name Age of Onset Diabetes Father High Cholesterol Father Hypertension Father Stroke Mother Heart Disease Mother Thyroid Disease Mother High Cholesterol Mother Heart Disease Maternal Grandmother Diabetes Maternal Grandmother Diabetes Paternal Grandmother Diabetes Mother Review of Systems: GEN: No weight loss or weight gain, energy level diminished Endo: + diabetic getting insulin pump Skin: No rashes or eruptions HEENT: no sinus complaints Lungs: No cough, shortness of breath, or wheezing CV: See above GI: No n/v, + diabetic gastroparesis + pancreatitis : No dysuria or hematuria G 3 P 3 + diabetec with last preg + hysterectomy - still has ovaries Musculoskeletal: No back pain, neck pain or joint pain or swelling Heme: without excessive bruising or bleeding tendency, no prior blood clots NEURO: no prior cva or seizure + migraine headahces PSYCH: No depression or anxiety All other ROS reviewed and are negative Physical Exam: BP 111/70 Pulse (!) 117 Ht 5' 5 (1.651 m) Wt 83.9 kg (185 lb) SpO2 97% BMI 30.79 kg/m?? Gen: NAD, alert, appropriate affect Skin: No rashes or eruptions Head: Normocephalic Eyes: Pupils equal ENT: No JVD, no carotid bruits, no thyromegaly or adenopathy Lungs: Clear to auscultation bilaterally Heart: RRR, normall S1 & S2, no murmurs or gallop appreciated. Abdomen: soft, nontender, without organomegaly Back: No significant scoliosis Ext: No edema or cyanosis,distal pulses 2+, normal muscle strength Neuro: alert and oriented x 3. Non-focal exam. Normal gait Impression ICD-10-CM ICD-9-CM 1. Atherosclerosis of [place] coronary artery of [place] heart with stable angina pectoris I25.118 414.01 413.9 2. 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 Type 1 diabetes mellitus without complication E10.9 250.01 4. Palpitations R00.2 785.1 5. Syncope, unspecified syncope type R55 780.2 Plan Obtain records from [facility] monitor Left heart cath Continue current medications * Rosa M Ashton - 11/18/2023 12:56 PM CDT New pt. Here for lipids. Chest discomfort and dizziness that causes her to faint. Three stents placed (one was not corrected) Last EKG done 09/18/23. Had CT done of brain. documented in this encounter Procedure Notes * Miguel Thomas MD - 12/22/2023 10:55 AM CDTAssociated Order(s): MOBILE CARDIAC OUTPATIENT TELEMETRY [place], [place] [address] Drawer In Stitch Bonding Machine Report CSN: [id number] DATE OF SERVICE: STUDY Mobile cardiac outpatient [...] per minute. No arrhythmias were noted. RPF:MEDQ DID: [id number] Dictated by: Miguel Thomas MD, [facility] CC: Marlys Mayer MD * Marlys Mayer MD - 11/18/2023 6:39 PM CDTAssociated Order(s): EKG 12-LEAD Procedure(s): OR ECG ROUTINE ECG W/LEAST 12 LDS W/I&R Pre-Procedure Diagnose(s): Atherosclerosis of [place] coronary artery of [place] heart with stable angina pectoris; Chylomicronemia syndrome; Type 1 diabetes mellitus without complication Sinus tachycardia rate 102 bpm Low voltage QRS in precordial leads documented in this encounter Plan of Treatment Upcoming Encounters Date Type Department Care Team (Late st Contact Info) Description 09/14/2024 3:00 PM CDT Office Visit [facility] Heart and Vascular - [facility] [address] [place] [address] Marlys Mayer MD [address] [place] [address] documented as of this encounter Procedures Procedure Name Priority Date/Time Associated Diagnosis Comments MOBILE CARDIAC OUTPATIENT TELEMETRY Routine 12/22/2023 10:55 AM CDT 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 Type 1 diabetes mellitus without complication Palpitations Syncope, unspecified syncope type OR ECG ROUTINE ECG W/LEAST 12 LDS W/I&R Routine 11/18/2023 6:39 PM CDT 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 No arrhythmias were noted. RPF:MEDQ DID:[id number] Dictated by: Miguel Thomas MD, [facility] CC: Marlys Mayer MD Marlys Mayer MD CARDIAC SERVICES ORD ERABLES [facility] CLIA# [id number] [address] [place] [address], [address] [place] [address] * OR ECG ROUTINE ECG W/LEAST 12 LDS W/I&R (11/18/2023 6:39 PM CDT) Narrative [facility] - 11/18/2023 6:39 PM CDT Marlys Mayer MD ? 11/18/2023 10:13 PM Sinus tachycardia rate 102 bpm Low voltage QRS in precordial leads Procedure Note Marlys Mayer MD - 11/18/2023 6:39 PM CDT Sinus tachycardia rate 102 bpm Low voltage QRS in precordial leads Marlys Mayer MD ECG ORDERABLES [facility] CLIA# [id number] [place] [address] documented in this encounter Visit Diagnoses Diagnosis Atherosclerosis of [place] coronary artery of [place] heart with stable angina pectoris- Primary Chylomicronemia syndrome Hyperchylomicronemia Type 1 diabetes mellitus without complication Type I (juvenile type) diabetes mellitus without mention of complication, not stated as uncontrolled Palpitations Syncope, unspecified syncope type documented in this encounter Care Teams Sander Operator Relationship Specialty Start Date End Date Guerrero Middleton PA-C PCP - General Physician Chief Engineer Drilling And Recovery 02/13/18 documented as of this encounter
--- OUTSIDE RECORDS SUMMARY | 2024-05-03 20:37 | XMS_ITS | Encounter Summary ---
Author Organization [facility] Address [address] [place] [address] Care Team Providers Care Distributed Energy Systems Consultant Name Role Phone Guerrero Middleton PA-C Primary Care Provide r Reason for Visit * Auth/Cert Specialty Diagnoses / Procedures Referred By Contac t Referred To Contact Laboratory [address] [address] Referral ID Status Reason Start Date Expiration Date Visits Re quested Visits Authorized [id number] 1 1 Encounter Details Date Type Department Care Team (Latest Contact Info) Description 12/20/2021 9:30 AM CDT - 12/20/2021 11:59 PM CDT Hospital Encounter [facility] [address] [place] [address] Nicole Rosas MD [address] [place] [address] Discharge Disposition: Home or Self Care Social [...] often do you attend chur ch or presybeterian services? Never 08/21/2018 Do you belong to any clubs o r organizations such as yarsani groups, unions, fraternal or athletic groups, or [...] AM CDT documented as of this encounter Last Filed Vital Signs Vital Sign Reading Time Taken Comments Blood Pressure 130/85 12/20/2021 9:35 AM CDT Pulse 89 12/20/2021 9:35 AM CDT Temperature - - Respiratory Rate 16 12/20/2021 9:35 AM CDT Oxygen Saturation 100% 12/20/2021 9:35 AM CDT Inhaled Oxygen Concentration - - Weight - [...] by mouth 2 times daily. 06/05/2018 09/26/2023 insulin aspart U-100 (NovoLOG Flexpen U-100 Insulin) 100 unit/mL pen syringe INJECT APPROXIMATELY 50 UNITS A DAY PER CORRECTION DOSE WITH MEALS 15 mL 06/01/2021 09/26/2023 empagliflozin (Jardiance) 25 mg tablet TAKE 1 TABLET BY MOUTH EVERY HANDS HANGER 30 Tablet 06/01/2021 09/19/2023 Vascepa 1 gram [...] bedtime. 09/19/2023 documented as of this encounter Plan of Treatment Upcoming Encounters Date Type Department Care Team (Late st Contact Info) Description 09/14/2024 3:00 PM CDT Office Visit [facility] Heart and Vascular - [facility] [address] [place] [address] Marlys Mayer MD [address] [place] [address] documented as of this encounter Visit Diagnoses Diagnosis Hypertriglyceridemia- Primary Pure hyperglyceridemia documented in this encounter Administered Medications Inactive Administered Medications - up to 3 most recent administrations Medication Order MAR Action Action Date Dose Rate Site heparin, porcine lock flush (pf) 100 unit/mL injection 500 Units 500 Units, IV, ONE TIME ONLY, 1 dose, On Sat12/20/21 at 0900, Routine Given 12/20/2021 10:22 AM CDT 500 Units heparin, porcine lock flush (pf) 100 unit/mL injection 500 Units 500 Units, IV, ONE TIME ONLY, 1 dose, On Sat12/20/21 at 0900, Routine Given 12/20/2021 10:18 AM CDT 500 Units sodium chloride flush injection 10 mL 10 mL, IV, ONE TIME ONLY, 1 dose, On Sat12/20/21 at 0900, Routine Given 12/20/2021 10:19 AM CDT 10 mL sodium chloride flush injection 10 mL 10 mL, IV, ONE TIME ONLY, 1 dose, On Sat12/20/21 at 0900, Routine Given 12/20/2021 10:22 AM CDT 10 mL sodium chloride flush injection 20 mL 20 mL, IV, ONE TIME ONLY, 1 dose, On Sat12/20/21 at 0900, Routine Given 12/20/2021 10:15 AM CDT 20 mL documented in this encounter Care Teams Distributed Energy Systems Consultant Relationship Specialty Start Date End Date Guerrero Middleton PA-C PCP - General Physician Production Quality Manager 02/13/18 documented as of this encounter
--- OUTSIDE RECORDS SUMMARY | 2024-05-03 20:37 | XMS_ITS | Encounter Summary ---
Author Organization [facility] Address [address] [place] [address] Care Team Providers Care Channel Rebuilder Name Role Phone Guerrero Middleton PA-C Primary Care Provide r Encounter Details Date Type Department Care Team (Late st Contact Info) Description 03/14/2022 Telephone [facility] [address] [place] [address] Phoenix Riddle MD [address] [facility] Department [place] [address] Social History Tobacco Use Types [...] How often do you attend chur or nondenominational services? Never 08/21/2018 Do you belong to any clubs o r organizations such as roman catholic groups, unions, fraternal or athletic groups, or [...] Description 09/14/2024 3:00 PM CDT Office Visit [facility] Heart and Vascular - [place] [employer] [employer] [address] [place] [address] Marlys Mayer MD [address] [place] [address] documented as of this encounter Visit Diagnoses Not on filedocumented in this encounter Additional Health Concerns Infection Onset Date Last Indicated Resolved Time R/O GI Pathogen 09/19/2023 09/19/2023 09/21/2023 7 :33 AM CDT documented as of this encounter Care Teams Channel Rebuilder Relationship Specialty Start Date End Date Guerrero Middleton PA-C PCP - General Physician Metal Stud Framer 02/13/18 documented as of this encounter
--- OUTSIDE RECORDS SUMMARY | 2024-05-03 20:37 | XMS_ITS | Encounter Summary ---
Author Organization [facility] Address [address] [place]rozco: Epic Prelude ADT [place] [address] Care Team Providers Care Head School Custodian Name Role Phone Guerrero Middleton PA-C Primary Care Provide r Encounter Details Date Type Department Care Team (Latest Contact Info) Description 12/20/2021 Travel Social History Tobacco Use Types Packs/Day [...] week 08/21/2018 How often do you attend [facility] or presybeterian services? Never 08/21/2018 Do you belong to any clubs o r organizations such as methodist groups, unions, fraternal or athletic groups, or [...] Description 09/14/2024 3:00 PM CDT Office Visit [facility] [address] [place] [address] Marlys Mayer MD [address] [place] [address] documented as of this encounter Visit Diagnoses Not on filedocumented in this encounter Care Teams Head School Custodian Relationship Specialty Start Date End Date Guerrero Middleton PA-C PCP - General Physician School Fundraising Director 02/13/18 documented as of this encounter
--- OUTSIDE RECORDS SUMMARY | 2024-05-03 20:37 | XMS_ITS | Encounter Summary ---
Author Organization [facility] Address [address] [place] [address] Care Team Providers Care Toppiece Cutter Name Role Phone Guerrero Middleton PA-C Primary Care Provide r Reason for Visit * Auth/Cert (Routine) Specialty Diagnoses / Procedures Referred By Tequila t Referred To Contact Emergency Medicine [facility] [address] [place] [address] Referral ID Status Reason Start Date Expiration Date Visits Re quested Visits Authorized [id number] 1 1 Encounter Details Date Type Department Care Team (Latest Contact Info) Description 09/23/2023 8:18 AM CDT - 09/23/2023 11:59 PM CDT Hospital Encounter [facility] Blood Flow [address] [place] [address] Parviz Sanabria MD [address] [place] [address] Discharge Disposition: Home or Self Care [...] any clubs o r organizations such as adventism groups, unions, fraternal or athletic groups, or [...] Blood-Glucose Sensor (Dexcom G7 Sensor) Device 05/13/2023 ondansetron (ZOFRAN ODT) 4 mg Tablet, Rapid Dissolve Take 1 Tablet (4 mg) by mouth every 6 hours as needed for Nausea/Emesis. 30 Tablet 09/26/2023 huuxjh-ioqgkcsr-mcjqh se DR (Creon) 36,000-114,000-180,00 0 unit capsule [...] in the morning. 30 Tablet 09/26/2023 12/26/2023 losartan (COZAAR) 25 mg tablet Take 25 mg by mouth daily. 09/26/2023 citalopram (CeleXA) 40 mg tablet Take 40 mg by mouth daily. 11/01/2020 09/26/2023 levothyroxine 200 mcg tablet Take 200 mcg by mouth. 10/28/2018 09/26/2023 LORazepam (ATIVAN) 0.5 mg tablet Take 0.5 mg by mouth every 6 hours as needed for Anxiety. 09/26/2023 metFORMIN (GLUCOPHAGE) 500 mg tablet Take [...] DOSE WITH MEALS 15 mL 06/01/2021 09/26/2023 metFORMIN (GLUCOPHAGE) 1,000 mg tablet TAKE 1 TABLET (1,000 MG) BY MOUTH 2 TIMES DAILY WITH MEALS. 180 Tablet 05/01/2021 11/29/2023 levothyroxine 200 mcg tabletIndications:Acq uired hypothyroidism Take 1 Tablet (200 mcg) by mouth daily. Once daily on an empty stomach 90 Tablet 3 09/15/2020 09/26/2023 LORazepam (ATIVAN) 1 mg tabletIndications:Dep ression with anxiety Take 1 Tablet (1 mg) by mouth 2 times daily as needed for Anxiety. 60 Tablet 2 09/15/2020 09/26/2023 Dexcom G6 Sensor Device Change sensor every 10 days. (9 sensors = 90 days) 9 Each 1 05/16/2020 12/26/2023 Dexcom G6 Transmitter Device Change transmitter every 90 days 1 Each 1 05/16/2020 12/26/2023 ondansetron (ZOFRAN ODT) 4 mg Tablet, Rapid Dissolve Dissolve 1 tablet on top of tongue, then swallow with saliva every 6 hours as needed for nausea/vomiting. 30 Tablet 05/21/2018 09/26/2023 pantoprazole (PROTONIX) 40 mg Tablet, Delayed Release (E.C.) Take 40 mg by mouth 2 times daily . 09/26/2023 documented as of this encounter Progress Notes * Luisana Madera RDMS - 09/23/2023 8:20 AM CDT Vas Lab prelim report Carotid duplex KENYATTA - 0-49% stenosis LICA - 0-49 % stenosis Bilat verts - antegrade Final report to follow documented in this encounter Plan of Treatment Upcoming Encounters Date Type Department Care Team (Late st Contact Info) Description 09/14/2024 3:00 PM CDT Office Visit [facility] Heart and Vascular - [facility] [address] [place] [address] Marlys Mayer MD [address] [place], [place] [id number] documented as of this encounter Procedures Procedure Name Priority Date/Time Associated Diagnosis Comments US CAROTID DOPPLER Routine 09/23/2023 9: 43 AM CDT documented in this encounter Results * US CAROTID DOPPLER (09/23/2023 9:43 AM CDT) Anatomical Region Laterality Modality Neck Ultrasound 09/23/2023 7:44 AM CDT Narrative 09/24/2023 6:21 AM CDT [facility] [address] [place] [address] [email or web address] Cerebrovascular Exam Carotid Duplex Patient: ? Casandra Jones MRN: ? [id number] Study ID: ?[id number] Gender: ?F : ? 1975 Age: ? 47 Race: ?CAU Height ? 165.1cm Study Date: ?09/23/2023 Weight: ?86.2kg Access. #: ? [id number] Account #: ? [id number] *Referring Physician:* Parviz Sanabria, Parviz Jordan *Ordering Physician:* ??Parviz Sanabria History: ?? Syncope. [...] +-----+-----+ Prepared and Electronically Authenticated Darío Augustine [id number] Procedure Note Darío Augustine MD - 09/24/[address] [address] [email or web address] Cerebrovascular Exam Carotid Duplex Patient: Casandra Jones Study ID: [id number] Gender: F : 1975 Age: 47 Race: ANNEMARIE Height 165.1cm Study Date: 09/23/2023 Weight: 86.2kg Access. #: [id number] *Referring Physician:Parviz Arambula John Jacob *Ordering Physician:Parviz Arambula History: Syncope. PMH: No prior study is available for comparison.Risk factors: The patient is a current tobacco user. Hypertension. Diabetes mellitus. Hyperlipidemia. Coronary artery disease. Study data: [facility] Study status: Routine. Procedure: A vascular evaluation [...] +-----+-----+ Prepared and Electronically Authenticated Darío Augustine [id number] Parviz Sanabria MD ORDERABLES documented in this encounter Visit Diagnoses Not on filedocumented in this encounter Care Teams Toppiece Cutter Relationship Specialty Start Date End Date Guerrero Middleton PA-C PCP - General Physician Cyanide Case Hardener 02/13/18 documented as of this encounter
--- OUTSIDE RECORDS SUMMARY | 2024-05-03 20:37 | XMS_ITS | Encounter Summary ---
Author Organization [facility] Address [address] [place] [address] Care Team Providers Care Director Validation Name Role Phone Guerrero Middleton PA-C Primary Care Provide r Reason for Visit * Reason Onset Date Comments discuss IOP services 09/21/2021 Encounter Details Date Type Department Care Team (Late st Contact Info) Description 09/21/2021 Telephone [place] [id number] [place] [address] Hedy Garvin discuss IOP services Social History Tobacco Use Types Packs/Day Years [...] often do you attend chur ch or quaker services? Never 08/21/2018 Do you belong to any clubs o r organizations such as jain groups, unions, fraternal or athletic groups, or [...] 3:00 PM CDT Office Visit [facility] Heart and Vascular - [facility] [address] [place] [address] Marlys Mayer MD [address] [place] [address] documented as of this encounter Visit Diagnoses Not on filedocumented in this encounter Care Teams Director Validation Relationship Specialty Start Date End Date Guerrero Middleton PA-C PCP - General Physician Security Lead 02/13/18 documented as of this encounter
--- OUTSIDE RECORDS SUMMARY | 2024-05-03 20:37 | XMS_ITS | Encounter Summary ---
Author Organization [facility] Address [address] [place] [address] Care Team Providers Care Blankbook Forwarder Name Role Phone Guerrero Middleton PA-C Primary Care Provide r Encounter Details Date Type Department Care Team (Late st Contact Info) Description 10/13/2021 Telephone [facility] Oncology [address] [place] [address] Phoenix Riddle MD [address] [facility] [place] [address] Social History Tobacco Use Types [...] often do you attend chur ch or confucianist services? Never 08/21/2018 Do you belong to any clubs o r organizations such as buddhism groups, unions, fraternal or athletic groups, or [...] [facility] [address] [place] [address] Marlys Mayer MD [address] [place] [address] documented as of this encounter Visit Diagnoses Not on filedocumented in this encounter Additional Health Concerns Infection Onset Date Last Indicated Resolved Time R/O GI Pathogen 09/19/2023 09/19/2023 09/21/2023 7 :33 AM CDT documented as of this encounter Care Teams Blankbook Forwarder Relationship Specialty Start Date End Date Guerrero Middleton PA-C PCP - General Physician Clamper 02/13/18 documented as of this encounter
--- OUTSIDE RECORDS SUMMARY | 2024-05-03 20:37 | XMS_ITS | Encounter Summary ---
Author Organization [facility] Address [address] [place] [address] Care Team Providers Care Bereavement Counselor Name Role Phone Guerrero Middleton PA-C Primary Care Provide r Encounter Details Date Type Department Care Team (Late st Contact Info) Description 06/14/2023 External Device Data STL ABSTRACTION Provider, Abstract [...] week 08/21/2018 How often do you attend [facility] or denominational services? Never 08/21/2018 Do you [...] [facility] Heart [facility] V[facility] - [facility] [address] [place] [address] Marlys Mayer MD [address] [place] [address] documented as of this encounter Visit Diagnoses Not on filedocumented in this encounter Care Teams Bereavement Counselor Relationship Specialty Start Date End Date Guerrero Middleton PA-C PCP - General Physician Locksmith 02/13/18 documented as of this encounter
--- OUTSIDE RECORDS SUMMARY | 2024-05-03 20:37 | XMS_ITS | Encounter Summary ---
Author Organization [facility] Address [address] [place] [address] Care Team Providers Care Machine Setter And Repairer Name Role Phone Guerrero Middleton PA-C Primary Care Provide r Encounter Details Date Type Department Care Team (Late st Contact Info) Description 03/13/2023 External Device Data STL ABSTRACTION Provider, Abstract [...] week 08/21/2018 How often do you attend [facility] or mandaeism services? Never 08/21/2018 Do [...] [facility] - [facility] [address] [place] [address] Marlys Mayer MD [address] [place] [address] documented as of this encounter Visit Diagnoses Not on filedocumented in this encounter Care Teams Machine Setter And Repairer Relationship Specialty Start Date End Date Guerrero Middleton PA-C PCP - General Physician Deputy United [place] Marshal 02/13/18 documented as of this encounter
--- OUTSIDE RECORDS SUMMARY | 2024-05-03 20:37 | XMS_ITS | Encounter Summary ---
Author Organization [facility] Address [address] [place] [address] Care Team Providers Care Peer Support Specialist Name Role Phone Guerrero Middleton PA-C Primary Care Provide r Reason for Visit * Reason Onset Date Comments OTHER 11/21/2021 Encounter Details Date Type Department Care Team (Late st Contact Info) Description 11/21/2021 Telephone [facility] [address] [place] [address] Nicole Rosas MD [address] [place] [address] OTHER Social History Tobacco Use Types Packs/Day Years [...] How often do you attend chur or orthodox services? Never 08/21/2018 Do you belong to any clubs o r organizations such as pentecostalism groups, unions, fraternal or athletic groups, or [...] 09/14/2024 3:00 PM CDT Office Visit [facility] Heart and Vascular - [address] [place] [address] Marlys Mayer MD [address] [place] [address] documented as of this encounter Visit Diagnoses Not on filedocumented in this encounter Additional Health Concerns Infection Onset Date Last Indicated Resolved Time R/O GI Pathogen 09/19/2023 09/19/2023 09/21/2023 7 :33 AM CDT documented as of this encounter Care Teams Peer Support Specialist Relationship Specialty Start Date End Date Guerrero Middleton PA-C PCP - General Physician Land Planner 02/13/18 documented as of this encounter
--- OUTSIDE RECORDS SUMMARY | 2024-05-03 20:37 | XMS_ITS | Encounter Summary ---
Author Organization [facility] Address [address] [place] [address] Care Team Providers Care Air Support Operations Operator Name Role Phone Guerrero Middleton PA-C Primary Care Provide r Reason for Visit * Reason Onset Date Comments due for PowerFlow port flush 10/19/2021 Encounter Details Date Type Department Care Team (Late st Contact Info) Description 10/19/2021 Telephone [facility] Donor Services [address] [address] Cathy Ken RN due for PowerFlow port flush Social History Tobacco Use Types Packs/Day Years [...] often do you attend chur ch or mormon services? Never 08/21/2018 Do you belong to [...] [facility] [place] [facility] - [place] [address] [place] [address] Marlys Mayer MD [address] [place] [address] documented as of this encounter Visit Diagnoses Not on filedocumented in this encounter Care Teams Air Support Operations Operator Relationship Specialty Start Date End Date Guerrero Middleton PA-C PCP - General Physician Remanufacturing Technician 02/13/18 documented as of this encounter
--- OUTSIDE RECORDS SUMMARY | 2024-05-03 20:37 | XMS_ITS | Encounter Summary ---
Author Organization [facility] Address [address] [place] [address] Care Team Providers Care Clinical Laboratory Science Professor Name Role Phone Guerrero Middleton PA-C Primary [...] week 08/21/2018 How often do you attend [facility] or jainism services? Never 08/21/2018 Do you belong to any clubs o r organizations such as judaism groups, unions, fraternal or athletic groups, or [...] 09/14/2024 3:00 PM CDT Office Visit [facility] Heart and Vascular - [place] [address] [place] [address] Marlys Mayer MD [address] [place] [address] documented as of this encounter Visit Diagnoses Not on filedocumented in this encounter Care Teams Clinical Laboratory Science Professor Relationship Specialty Start Date End Date Guerrero Middleton PA-C PCP - General Physician Certifier 02/13/18 documented as of this encounter
--- OUTSIDE RECORDS SUMMARY | 2024-05-03 20:37 | XMS_ITS | Encounter Summary ---
Author Organization [facility] Address [address] [place] [address] Care Team Providers Care Filter Machine Operator Name Role Phone Guerrero Middleton PA-C Primary Care Provide r Encounter Details Date Type Department Care Team (Late st Contact Info) Description 12/08/2021 Telephone [facility] Donor Services [facility] [address] [place] [address] Phoenix Riddle MD [address] [facility] [place] [address] Social History Tobacco Use Types [...] How often do you attend chur or yazdanism services? Never 08/21/2018 Do you belong to any clubs o r organizations such as scientologist groups, unions, fraternal or athletic groups, or [...] [facility] Heart and Vascular - [place] [address] [place] [address] Marlys Mayer MD [address] [place] [address] documented as of this encounter Visit Diagnoses Not on filedocumented in this encounter Additional Health Concerns Infection Onset Date Last Indicated Resolved Time R/O GI Pathogen 09/19/2023 09/19/2023 09/21/2023 7 :33 AM CDT documented as of this encounter Care Teams Filter Machine Operator Relationship Specialty Start Date End Date Guerrero Middleton PA-C PCP - General Physician Transitions Rn Care Coordinator 02/13/18 documented as of this encounter
--- OUTSIDE RECORDS SUMMARY | 2024-05-03 20:38 | XMS_ITS | Encounter Summary ---
Author Organization [facility] Address [address] Orozco: Epic Prelude ADT [place] [address] Care Team Providers Care Tester Electronic Scale Name Role Phone Guerrero Middleton PA-C Primary Care Provide r Encounter Details Date Type Department Care Team (Latest Contact Info) Description 08/24/2021 Travel Social History Tobacco Use Types Packs/Day [...] week 08/21/2018 How often do you attend [facility] or rastafari services? Never 08/21/2018 Do you belong to any clubs o r organizations such as yazidism groups, unions, fraternal or athletic groups, or [...] suspected to have Coronavirus/COVID-19? No / Unsure 08/24/2021 10:31 AM CDT documented as of this encounter Plan of Treatment Upcoming Encounters Date Type Department Care Team (Late st Contact Info) Description 09/14/2024 3:00 PM CDT Office [facility] [address] [place] [address] Marlys Mayer MD [address] [place] [address] documented as of this encounter Visit Diagnoses Not on filedocumented in this encounter Care Teams Tester Electronic Scale Relationship Specialty Start Date End Date Guerrero Middleton PA-C PCP - General Physician Core Layer Machine Operator 02/13/18 documented as of this encounter
--- OUTSIDE RECORDS SUMMARY | 2024-05-03 20:38 | XMS_ITS | Encounter Summary ---
Author Organization [facility] Address [address] Orozco: Epic Prelude ADT [place] [address] Care Team Providers Care Turf And Grounds Supervisor Name Role Phone Guerrero Middleton PA-C Primary Care Provide r Encounter Details Date Type Department Care Team (Latest Contact Info) Description 08/09/2021 Travel Social History Tobacco Use Types Packs/Day [...] week 08/21/2018 [facility] you attend [facility] or muslim services? Never 08/21/2018 Do you belong to [...] Exposure Response Date Recorded In the last month, have you been in contact with someone who was confirmed or suspected to have Coronavirus / COVID-19? No / Unsure 08/09/2021 9:10 AM CDT documented as of this encounter Plan of Treatment Upcoming Encounters Date Type Department Care Team (Late st Contact Info) Description 09/14/2024 3:00 PM CDT Office Visit [facility] [address] [address] [place] [address] Marlys Mayer MD [address] [place] [address] documented as of this encounter Visit Diagnoses Not on filedocumented in this encounter Additional Health Concerns Assessment Noted Time PHQ-9 Depression Total Score: 1 08/11/19 21 6:30 PM CDT documented as of this encounter Care Teams Turf And Grounds Supervisor Relationship Specialty Start Date End Date Guerrero Middleton PA-C PCP - General Physician Factory Representative 02/13/18 documented as of this encounter
--- OUTSIDE RECORDS SUMMARY | 2024-05-03 20:38 | XMS_ITS | Encounter Summary ---
Author Organization [facility] Address [address] Orozco: Epic Prelude ADT [place] [address] Care Team Providers Care School Director Name Role Phone Guerrero Middleton PA-C Primary Care Provide r Encounter Details Date Type Department Care Team (Latest Contact Info) Description 07/20/2021 Travel Social History Tobacco Use Types Packs/Day [...] 08/21/2018 How often do you attend [facility] or yazdanism services? Never 08/21/2018 Do you [...] have Coronavirus / COVID-19? No / Unsure 07/20/2021 9:14 AM CDT documented as of this encounter Plan of Treatment Upcoming Encounters Date Type Department Care Team (Late st Contact Info) Description 09/14/2024 3:00 PM CDT Office Visit [facility] [address] [place] [address] Marlys Mayer MD [address] [place] [address] documented as of this encounter Visit Diagnoses Not on filedocumented in this encounter Additional Health Concerns Assessment Noted Time PHQ-9 Depression Total Score: 1 08/11/19 21 6:30 PM CDT documented as of this encounter Care Teams School Director Relationship Specialty Start Date End Date Guerrero Middleton PA-C PCP - General Physician Lumber Checker 02/13/18 documented as of this encounter
--- OUTSIDE RECORDS SUMMARY | 2024-05-03 20:38 | XMS_ITS | Encounter Summary ---
Author Organization [facility] Address [address] [place] [address] Care Team Providers Care Icu Manager Name Role Phone Guerrero Middleton PA-C Primary Care Provide r Reason for Visit * Reason Onset Date Comments Needs Appointment 07/27/2021 Encounter Details Date Type Department Care Team (Late st Contact Info) Description 07/27/2021 Telephone [facility] Donor Services [facility] [address] [place] [address] Phoenix Riddle MD [address] [facility] [place] [address] Needs Appointment Social History Tobacco [...] any clubs o r organizations such as baptism groups, unions, fraternal or athletic groups, or [...] Description 09/14/2024 3:00 PM CDT Office Visit [facility] [address] [place] [address] Marlys Mayer MD [address] [place] [address] documented as of this encounter Visit Diagnoses Not on filedocumented in this encounter Additional Health Concerns Assessment Noted Time PHQ-9 Depression Total Score: 1 08/11/19 21 6:30 PM CDT documented as of this encounter Care Teams Icu Manager Relationship Specialty Start Date End Date Guerrero Middleton PA-C PCP - General Physician Stone Paver 02/13/18 documented as of this encounter
--- OUTSIDE RECORDS SUMMARY | 2024-05-03 20:38 | XMS_ITS | Encounter Summary ---
Author Organization [facility] Address [address] [place] [address] Care Team Providers Care Center Consultant Name Role Phone Guerrero Middleton PA-C Primary Care Provide r Reason for Visit * Reason Comments Allergic Reaction She was at the donor services and getting ready to have plasma phoresis. She started having an allergic reaction. She has redness and swelling noted to her face and is coughing a lot. They had just barely started her tx when she started having a reaction. She was 4 min into tx and had cp and left arm pain with sob * Auth/Cert Specialty Diagnoses / Procedures Referred By Contac t Referred To Contact [facility] Surgical [address] [place] [address] Referral ID Status Reason Start Date Expiration Date Visits Re quested Visits Authorized [id number] 1 1 Encounter Details Date Type Department Care Team (Late st Contact Info) Description 08/24/2021 10:25 AM CDT - 08/26/2021 1:58 PM CDT Emergency [facility] Medical Surgical [address] [place] [address] [place] [address] [place] [address] [place] [id number] [address] [place] [address] [place] [address] Allergic reaction caused by a drug Discharge Disposition: Home or Self Care Social [...] often do you attend chur ch or samaritan services? Never 08/21/2018 Do you [...] suspected to have Coronavirus/COVID-19? No / Unsure 08/26/2021 2:45 AM CDT documented as of this encounter Last Filed Vital Signs Vital Sign Reading Time Taken Comments Blood Pressure 98/54 08/26/2021 12:42 PM CDT Pulse 83 08/26/2021 12:42 PM CDT Temperature 36.8 ??C (98.3 ??F) 08/26/2021 12:42 PM C DT Respiratory Rate 16 08/26/2021 10:01 AM CDT Oxygen Saturation 93% 08/26/2021 12:42 PM CDT Inhaled Oxygen Concentration - - Weight 83.5 kg (184 lb) 08/24/2021 10:33 AM CDT Height 165.1 cm (5' 5 ) 08/24/2021 10:33 AM CDT Body Mass Index 30.62 08/24/2021 10:33 AM CDT documented in this encounter Discharge Summaries * Shagufta Olsen MD - 08/26/2021 8:32 PM CDT [facility] Adult Hospitalist Discharge Summary Linda Doss 45 y.o. female 1975 CSN: [id number] Date of Admission: 08/24/2021 Date of Discharge: 08/26/2021 Discharging Physician: Shagufta Olsen MD LOS: 0 days PCP: Guerrero Middleton PA-C Activity: activity as tolerated. Dispo: home Diet: Cardiac/Diabetic Code Status at Discharge: Full Code Wound Care: None needed Admitting Dx: Allergic reaction caused by a drug Discharge Diagnoses: Active Hospital Problems Diagnosis ??? Allergic reaction caused by a drug ??? Precordial pain ??? Chronic pancreatitis ??? Acquired hypothyroidism ??? History of pancreatitis ??? Mixed hyperlipidemia ??? History of plasmapheresis ??? GERD (gastroesophageal reflux disease) ??? Type 2 diabetes mellitus without complication, with long-term current use of insulin ??? Chylomicronemia syndrome ??? Depression with anxiety ??? Hypertriglyceridemia ??? Hypothyroidism ??? Family history of early CAD ??? Metabolic syndrome Resolved Hospital Problems No resolved problems to display. Hospital Course: 45 y.o. female with history of hypertriglyceridemia on plasma exchange who presented to ER after se was noted to have sudden onset of chest pressure and palpitation. She was also noted left upper extremity numbness. She was suspected to have allergic reaction to plasma exchange as she had noted similar symptoms with prior plasma exchange during which she was given a different component. Unclear as to difference. She was started on steroids. No evidence of allergic reaction after assuming care.Discussed with pathologist managing. Given limited treatment options for hypertriglyceridemia and unclear history of allergic reaction she received plasma exchange prior to discharge after steroids were discontinued for > 24hr. She tolerated this well with out any evidence of reaction. After fewhours of monitoring she was discharged in stable condition. Of note an Echo was also performed due to chest pain which did not show any evidence of regional wall motion abnormality. Did not have any recurrence of chest pain. Advised to follow up outpatient for stress test. She was given option to remain and have this done in hospital however wanted to be discharged. Consultants: Pathology Significant Diagnostic Studies This Admission: ECHO COMPLETE Result Date: 08/25/2021 -- [address] [address] [email or web address]leg[facility]aceuticals[email or web address] -- Transthoracic Echocardiography -- Patient: Linda Doss Study ID: ECHO COMPLETE Gender: F : 1975 Age: 45 Race: ANNEMARIE Height 165.1cm Study Date: 08/25/2021 Weight: 83.5kg Access. #: [id number] BP: -- -- *Referring Physician:Chin Bhat *Ordering Physician:Chin Bhat Satellite Specialist: nuclear power reactor operator: Nurse: -- --- Indications: Chest pain. SOB / HENDRIX. STUDY CONCLUSIONS: SUMMARY: -- - Left ventricle: The cavity size was normal. Wall thickness was normal. Global systolic function was normal. Left ventricular diastolic function parameters were normal. The ejection fraction (2-plane MOD) is 63%. - Mitral valve: Mild regurgitation. - Left atrium: The atrium was normal in size. - Right ventricle: The cavity size was normal. Systolic function was normal. - Pulmonary arteries: Systolic pressure could not be estimated. - Pericardium: There was no pericardial effusion. -- Cardiac Anatomy: LEFT VENTRICLE: The cavity size was normal. Wall thickness was normal. Global systolic function was normal. Left ventricular diastolic function parameters were normal. AORTIC VALVE: Structurally normal valve. Trileaflet. Doppler: No significant regurgitation. The LVOT to aortic valve VTI ratio is 0.93. The valve area by the velocity-time integral method is 2.9cm^2. The valve area index bythe velocity-time integral method is 1.53cm^2/m^2. The ratio of LVOT to aortic valve peak velocity is 0.84. The valve area by the peak velocity method is 2.6cm^2. The valve area index by the peak velocity method is 1.38cm^2/m^2. The mean systolic gradient is 2mm Hg. The peak systolic gradient is 5mm Hg. AORTA: Aortic root: The aortic root was normal in size. MITRAL VALVE: Structurally normal valve. Doppler: Mild regurgitation. The peak diastolic gradient is 2mm Hg. LEFT ATRIUM: The atrium was normal in size. RIGHT VENTRICLE: The cavity size was normal. Systolic function was normal. PULMONIC VALVE: Not well visualized. Structurally normal valve. Doppler: No significant regurgitation. The mean systolic gradient is 2mm Hg. The peak systolic gradient is 4mm Hg. TRICUSPID VALVE: Structurally normal valve. Doppler: No significant regurgitation. PULMONARY ARTERY: Systolic pressure could not beestimated. RIGHT ATRIUM: The atrium was normal in size. Prominant eustachian valve. PERICARDIUM: There was no pericardial effusion. Systemic veins: Inferior vena cava: The vessel was normal in size. - Measurements -- -- Left ventricle Value Ref SV 59 ml SV/bsa 31 ml/m^2 EDV, 2-p (N) 71 ml 46 - 106 ESV, 2-p (N) 27 ml 14 - 42 EF, 2-p (N) 63 % 54 - 74 SV, 2-p 45 ml EDV/bsa, 2-p (N) 37 ml/m^2 29 - 61 ESV/bsa, 2-p (N) 14 ml/m^2 8 - 24 SV/bsa, 2-p 23.4 ml/m^2 E', lat juancho, TDI (N) 10.7 cm/sec >=10.0 E/e', lat juancho, TDI 7 E', med juancho, TDI (N) 8.2 cm/sec >=7.0 E/e', med juancho, TDI 9 E', avg, TDI 9.4 cm/sec E/e', avg, TDI (N) 8 <=14 LVOT Value Ref Diam, S 2.0 cm Area 3.1 cm^2 Peak vick, S 0.91 m/sec VTI,S 18.8 cm Right ventricle Value Ref PERICO minor ax, A4C base (N) 3.4 cm 2.5 - 4.1 TAPSE, MM (N) 2.2 cm 1.7 - 3.1 S' lateral (N) 11.2 cm/sec 6.0 - 13.4 RVOT Value Ref Peak grad, S 2 mm Hg Left atrium Value Ref AP dim, ES (N) 3.4 cm 2.7 - 3.8 AP dim index (N) 1.8 cm/m^2 1.5 - 2.3 Vol, ES, 2-p 57 ml Vol/bsa, ES, 2-p (N) 30 ml/m^2 16 - 34 Right atrium Value Ref Area, ES, A4C (N) 16 cm^2 10 - 18 Vol, ES, 1-p A4C 40 ml Vol/bsa, ES, 1-p A4C (N) 21 ml/m^2 9 - 33 Aortic valve Value Ref Peak v, S 1.1 m/sec VTI, S 20.2 cm Mean grad, S 2 mmHg Peak grad, S 5 mm Hg LVOT/AV, VTI ratio 0.93 DELANEY, VTI 2.9 cm^2 DELANEY/bsa, VTI 1.53 cm^2/m^2 Mitral valve Value Ref Peak E 0.75 m/sec Peak A 0.52 m/sec Decel time 177 ms Peak E/A ratio 1.4 Pulmonic valve Value Ref Peak v, S 0.94 m/sec Mean grad, S 2 mm Hg Peak grad, S 4 mm Hg Aortic root Value Ref Root diam, S 2.9 cm -- -- Legend: (L) and (H) castro valuesoutside specified reference range. (N) chavez values inside specified reference range. Procedure data: Procedure information: Transthoracic echocardiography. Scanning was performed from the parasternal, apical, and subcostal acoustic windows. Transthoracic echocardiography. Complete 2D, complete spectral Doppler, and col or Doppler. Birthdate: Patient birthdate: 1975. Age: Patient is 45yr old. Sex: gender: female. Height: 165.1cm. 65in. Weight: 83.5kg. 183.6lb. Body mass index: 30.6kg/m^2. Body surface area: 1.91m^2. Study date: Study date: 08/25/2021. Study time: 07:20 AM. Prepared and Electronically Authenticated Miguel Lewis [id number] XR CHEST PA OR AP 1 VW Result Date: 08/24/2021 PORTABLE AP VIEW OF THE CHEST DATE: 08/24/2021 10:51 AM HISTORY: Shortness of Breath SOB. COMPARISON: 05/17/2018 FINDINGS: Lung volumes are small. Lungs are clear. No pneumothorax. No pleural effusion.The cardiac and mediastinal silhouettes are normal. Bilateral port type central venous catheters terminate near the superior cavoatrial junction. IMPRESSION: No convincing evidence of active disease. DICTATION LOCATION: Location 1 [facility] Discharge Lab Data: Lab Results Component Value Date WBC 14.4 (H) 08/26/2021 HGB 9.7 (L) 08/26/2021 HCT 29.4 (L) 08/26/2021 PLT 284 08/26/2021 NA 137 08/26/2021 CL 100 08/26/2021 K 3.6 08/26/2021 CO2 25 08/26/2021 BUN 11 08/26/2021 CREAT 0.65 08/26/2021 GLUCOSE 184 (H) 08/26/2021 INR 1.1 01/26/2021 AST 17 12/26/2020 ALT 13 12/26/2020 CRP <3.0 07/10/2020 Discharge Exam: BP 98/54 (BP Location: Left arm, Patient Position (BP): Supine) Pulse 83 Temp 98.3 ??F (36.8 ??C) (Oral) Resp 16 Ht 5' 5 (1.651 m) Wt 83.5 kg (184 lb) SpO2 93% BMI 30.62 kg/m?? Physical Exam: General: Alert,Awake, NAD HEENT: Grossly unremarkable CVS; RRR Chest: Non-labored respiration Abd: Non-distended Ext; No edema Discharge medications and new prescriptions: Medication List CONTINUE taking these medications Pamela Monge U-100 Insulin 100 unit/mL pen syringe 35 units bid Signed by: Dr. Prudence Gates MD Quantity: 60 mL Refills: 1 Generic drug: insulin glargine buPROPion HCL 150 mg Sustained Release 12 hour tablet Commonly known as: WELLBUTRIN SR TAKE 1 TABLET BY MOUTH 2 TIMES DAILY Signed by: Dr. Prudence Gates MD Quantity: 60 Tablet Refills: 5 citalopram 40 mg tablet Commonly known as: CeleXA TAKE 1 TABLET BY MOUTH EVERY DAY Signed by: Dr. Coty Pierson MD Quantity: 90 Tablet Refills: 1 Dexcom G6 Sensor Device Change sensor every 10 days. (9 sensors = 90 days) Signed by: Dr. Prudence Gates MD Quantity: 9 Each Refills: 1 Generic drug: Blood-Glucose Sensor Dexcom G6 Transmitter Device Change transmitter every 90 days Signed by: Dr. Prudence Gates MD Quantity: 1 Each Refills: 1 Generic drug: Blood-Glucose Transmitter diphenhydrAMINE 25 mg tablet Commonly known as: BENADRYL Take 1 Tablet (25 mg) by mouth every 8 hours as needed for Itching. Signed by: Alber Rod MD Quantity: 16 Tablet Refills: 0 empagliflozin 25 mg tablet Commonly known as: Jardiance TAKE 1 TABLET BY MOUTH EVERY CROCHET MACHINE OPERATOR Signed by: Dr. Prudence Gates MD Quantity: 30 Tablet Refills: 0 fenofibrate 160 mg Tablet Commonly known as: LOFIBRA TAKE 1 TABLET BY MOUTH EVERY DAY Signed by: Dr. Prudence Gates MD Quantity: 90 Tablet Refills: 0 Fish Oil-Centuria-3 Fatty Acids 360-1,200 mg Capsule Take 2 Capsules by mouth 2 times daily with meals. Refills: 0 insulin aspart U-100 100 unit/mL pen syringe Commonly known as: NovoLOG Flexpen U-100 Insulin INJECT APPROXIMATELY 50 UNITS A DAY PER CORRECTION DOSE WITH MEALS Signed by: Dr. Prudence Gates MD Quantity: 15 mL Refills: 0 levothyroxine 200 mcg tablet Commonly known as: SYNTHROID Take 1 Tablet (200 mcg) by mouth daily. Once daily on an empty stomach Signed by: Dr. Prudence Gates MD Quantity: 90 Tablet Refills: 3 LORazepam 1 mg tablet Commonly known as: ATIVAN Take 1 Tablet (1 mg) by mouth 2 times daily as needed for Anxiety. Signed by: Dr. Prudence Gates MD Quantity: 60 Tablet Refills: 2 metFORMIN 1,000 mg tablet Commonly known as: GLUCOPHAGE TAKE 1 TABLET (1,000 MG) BY MOUTH 2 TIMES DAILY WITH MEALS. Signed by: Dr. Prudence Gates MD Quantity: 180 Tablet Refills: 0 ondansetron 4 mg Tablet, Rapid Dissolve Commonly known as: ZOFRAN ODT Dissolve 1 tablet on top of tongue, then swallow with saliva every 6 hours as needed for nausea/vomiting. Signed by: Dr. Wendie Desai MD Quantity: 30 Tablet Refills: 0 pantoprazole 40 mg Tablet, Delayed Release (E.C.) Commonly known as: PROTONIX Take 40 mg by mouth 2 times daily . Refills: 0 rosuvastatin 20 mg tablet Commonly known as: CRESTOR Take 20 mg by mouth daily at bedtime. Refills: 0 traZODone 100 mg tablet Commonly known as: DESYREL Take 100 mg by mouth daily at bedtime . Refills: 0 varenicline 0.5 mg Tablet Commonly known as: Chantix Take 1 Tablet (0.5 mg) by mouth 2 times daily. Signed by: Dr. Prudence Gates MD Quantity: 60 Tablet Refills: 0 Vascepa 1 gram Capsule TAKE 2 CAPSULES (2 GRAMS) BY MOUTH 2 TIMES DAILY WITH MEALS. Signed by: Dr. Prudence Gates MD Quantity: 120 Capsule Refills: 0 Generic drug: icosapent ethyL Nutritional status and in-house recommendations: Current Diet and/or Nutritional Supplementation ordered: No diet orders on file Discharge Condition: improved to baseline. Follow-up: Guerrero Middleton PA-C in 5 days. More than 35 minutes were spent in this discharge activity. Signed: Shagufta Olsen MD documented in this encounter Medications at Time [...] tablet TAKE 1 TABLET BY MOUTH EVERY CROCHET MACHINE OPERATOR 30 Tablet 06/01/2021 09/19/2023 Vascepa 1 gram Capsule TAKE 2 CAPSULES (2 GRAMS) BY MOUTH 2 TIMES DAILY WITH MEALS. 120 Capsule 06/01/2021 09/19/2023 metFORMIN (GLUCOPHAGE) 1,000 mg tablet TAKE 1 TABLET (1,000 MG) BY MOUTH 2 TIMES DAILY WITH MEALS. 180 Tablet 05/01/2021 11/29/2023 buPROPion HCL (WELLBUTRIN SR) 150 mg Sustained Release 12 hour tablet TAKE 1 TABLET BY MOUTH 2 TIMES DAILY 60 Tablet 5 03/30/2021 09/20/2021 levothyroxine 200 mcg tabletIndications:Acq uired hypothyroidism Take [...] as of this encounter Progress Notes * Phoenix Riddle MD - 08/26/2021 2:44 PM CDT CC: ??45??yo female undergoing prophylaxis for??hypertriglyceridemic pancreatitis in the setting ofrecurrent necrotizing pancreatitis undergoing??plasma exchange. ?? Interval history:??Patient admitted due to chest pain and shortness of breath during the beginning of her last procedure. Cardiac enzymes, echocardiogram, and CXR without significant findings. Per report she became hypotensive in the ER and responded to steroids and epinephrine, which raised consideration of an allergic reaction, though the symptoms were not typical and different than the recent allergic symptoms she experienced with a different brand of albumin. Symptoms not definitively attributable to an allergic reaction, patient to undergo a trial of PLEX without premedication while inpatient to evaluate for potential emerging albumin allergy. Also of note, during the course of this adm ission the patient's glycemic control was under medical management with appropriate insulin administration, which resulted in a decrease in triglycerides down to 492 mg/dL without PLEX intervention. ?? Procedure note: 1.0 volume plasma exchange with 5% albumin replacement, 100% fluid balance, 2 g calcium gluconate during procedure.?Patient tolerated the procedure well, without complaint or adverse event. ?? 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 Labs: 08/21/21 preprocedure triglycerides:?>4425 mg/dL 08/21/21 postprocedure triglycerides:?2782 mg/dL 08/23/21 preprocedure triglycerides: >4425 mg/dL 08/23/21 postprocedure triglycerides: 2301 mg/dL 08/24/21 preprocedure triglycerides: >4425 mg/dL 08/25/21 triglycerides (no procedure): 2738 mg/dL 08/26/21 preprocedure triglycerides: 492 mg/dL 08/26/21 postprocedure triglycerides: 211 mg/dL ?? A&P: 1. 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 2. Reaction of uncertain etiology during initiation of PLEX procedure on 08/24/21, procedure today went without incident and does not appear to be attributable to an allergic reaction - possible cardiac etiology though workup negative. 3. Patient has demonstrated poor triglyceride level control on an outpatient basis. Outpatient PLEXprocedures transiently decrease triglyceride levels, though over the course of a single day they have been shown to rise from 2301 back to >4425 mg/dL. Glycemic control has also been an issue, with an A1c of 8.9 and the patient admitting to regularly skipping her mid-day insulin, contributing tohypertriglyceridemia. 4. Optimal triglyceride levels were achieved during hospitalization without use of PLEX - attributable to appropriate insulin dosing and possibly behavioral choices. 5. Outpatient maintenance PLEX of questionable value going forward, without significant evidence inthe literature or anecdotal evidence at our facility for its efficacy - appropriate insulin use andtight glycemic control of the most utility. Will discuss with pheresis team, patient at an upcomingappointment, and her planer mill grader about the most appropriate plan of action. I have reviewed pertinent notes and records??and remained immediately available throughout the procedure. ?? Phoenix Riddle MD Facility Engineer, therapeutic apheresis service [phone] * Sharri Juarez RN - 08/26/2021 10:31 AM CDT Plasma exchange completed today using R and L chest BARD ports for draw and return. Used 5% Albuminas replacement fluid for a 1.0 volume exchange with a 100% fluid balance. Patient tolerated the procedure well. * Shagufta Olsen MD - 08/25/2021 6:06 PM CDT [facility] Hospitalist Progress Note Date of Service: 08/25/2021 Hospital Course: Subjective: 08/25/2021 Patient will receive an infusion of plasma tomorrow, discussed the plan with her. Patient is feeling better. No new complaints. Objective Vitals: General- in no apparent distress HEENT -grossly unremarkable CVS- normal sinus rhythm Chest -nonlabored respiration Abdomen -soft nontender nondistended Extremities-no edema Neuro- cranial nerves 2-12 intact, motor strength 5/5 Labs: Lab Results Component Value Date/Time WBC 14.4 (H) 08/26/2021 04:23 AM HGB 9.7 (L) 08/26/2021 04:23 AM HCT 29.4 (L) 08/26/2021 04:23 AM PLT 284 08/26/2021 04:23 AM MCV 91.9 08/26/2021 04:23 AM Lab Results Component Value Date/Time NA 137 08/26/2021 04:23 AM K 3.6 08/26/2021 04:23 AM CL 100 08/26/2021 04:23 AM CO2 25 08/26/2021 04:23 AM CA 9.6 08/26/2021 04:23 AM BUN 11 08/26/2021 04:23 AM CREAT 0.65 08/26/2021 04:23 AM GLUCOSE 184 (H) 08/26/2021 04:23 AM ANIONGAP 12 08/26/2021 04:23 AM Imagin/28 XR Chest: -No convincing evidence of active disease. Assessment/Plan: ?? Principal Problem: Allergic reaction caused by a drug Active Problems: Metabolic syndrome Family history of early CAD Hypothyroidism Chylomicronemia syndrome Hypertriglyceridemia Depression with anxiety Type 2 diabetes mellitus without complication, with long-term current use of insulin GERD (gastroesophageal reflux disease) History of plasmapheresis Mixed hyperlipidemia History of pancreatitis Acquired hypothyroidism Chronic pancreatitis Precordial pain Disposition: home Estimate Date of discharge: 08/26/2021 Shagufta Olsen MD * Thuy Reyna RN - 08/25/2021 5:14 PM CDT Pt is AOX4, calm and cooperative; on room air, up ad gaudencio Pts blood sugar has been elevated entire shift. Pt states she takes metformin, jardiance and a higher insulin dosage for her SSI; home SSI listed below. Pt staying to receive a infusion of plasmapheresis tomorrow per MD. Pt resting in bed with at bedside, NAD noted at this time. Bed low, rails upx2, call light within reach. Will continue to monitor. Blood sugar - Units <140 0 Units 141-160 4 Units 161/180 5 Units 181-200 6 Units 201-220 7 Units 221-240 8 Units 241-260 9 Units 261-280 10 Units 281-300 11 Units 301-320 12 Units >321 13 Units * Rogelio Armenta MD - 08/24/2021 12:53 PM CDT [facility] HOSPITALIST NOTE 08/24/21 12:53 PM Contacted for: Request for bridge admission Vitals: 08/24/21 1115 08/24/21 1130 08/24/21 1145 08/24/21 1147 Temp: Pulse: 94 91 94 95 Heart Rate: 93 bpm 92 bpm 94 bpm 97 bpm BP: 96/53 (!) 91/48 104/57 Mean Arterial Pressure: 64 MM HG 63 MM HG 71 MM HG Resp: 19 17 13 18 SpO2: (!) 88% 91% 90% 94% Intervention/Follow up/Discussion: Chart reviewed, ED H&P is not complete at this time. Per notes available the patient is here with an allergic reaction during plasmapheresis with complaints of chest pain/left arm pain, halting speech, swelling in the periorbital area and redness of her face. Noted to be tachycardic, hypotensive in ER, vitals not improved. Patient received epinephrine. Patient with possible allergic reaction with the question of upper airway involvement will be better suited for in person evaluation. [facility]transferred to [facility] hospitalist team. Kathi Mercado MD documented in this encounter H&P Notes * Chin Maurice, DO - 08/24/2021 1:57 PM CDT HOSPITALIST HISTORY AND PHYSICAL Subjective: Linda Doss is a 45 y.o. female With CC of CP, SOB, Palpitations Presents with medical Hx/Comorbid Conditions of Hypertriglyceridemia, metabolic syndrome, DM2, HLD,Hypothyroid, Depression/anxiety, GERD, chronic pancreatitis. Reports that she was getting plasma exchange as part of her treatment of Hypertriglyceridemia/chylomicronemia syndrome. She has been getting this done roughly every week and started ~5 years ago. She has done well an tolerated it without difficulty. Today she had sudden onset of of chest pressure and sensation of her heart beating differently. Thediscomfort went into her neck/throat and then she had numbness in her left arm. She develop SOB andshe was sent to Er for further care. She did not receive Aspirin. She was treated for an allergic reaction with benadryl, Pepcid, Solumedrol, and did receive epinephrine. Her symptoms went away and she did not get CP following Epi injection. CXR is clear and does not demonstrate airway narrowing She is feeling better. She reports that her Dad had an TX and her mom had a CVA. Chief Complaint Patient presents with ??? Allergic Reaction She was at the donor services and getting ready to have plasma phoresis. She started having an allergic reaction. She has redness and swelling noted to her face and is coughing a lot. They had just barely started her tx when she started having a reaction. She was 4 min into tx and had cp and left arm pain with sob Principal Problem: Allergic reaction caused by a drug Active Problems: Metabolic syndrome Family history of early CAD Hypothyroidism Chylomicronemia syndrome Hypertriglyceridemia Depression with anxiety Type 2 diabetes mellitus without complication, with long-term current use of insulin GERD (gastroesophageal reflux disease) History of plasmapheresis Mixed hyperlipidemia History of pancreatitis Acquired hypothyroidism Chronic pancreatitis Precordial pain PCP: Guerrero Middleton PA-C Past Medical History: Diagnosis Date ??? Anxiety ??? Chylomicronemia syndrome ??? Chylomicronemia syndrome ??? Depression ??? Diabetes mellitus ??? DM type 2 (diabetes mellitus, type 2) ??? Family history of diabetes mellitus 05/15/2011 ??? Family history of early CAD 05/15/2011 ??? GERD (gastroesophageal reflux disease) ??? High triglycerides ??? History of gestational diabetes 05/15/2011 ??? HLD (hyperlipidemia) ??? Hypothyroidism ??? Metabolic syndrome 05/15/2011 ??? Pancreatitis ??? PCOS (polycystic ovarian syndrome) 05/15/2011 ??? Smoker Past Surgical History: Procedure Laterality Date ??? HX APPENDECTOMY ??? HX HYSTERECTOMY partial due to endometriosis 2006 ??? HX TONSILLECTOMY ??? HX TUNNELED VENOUS CATHETER PLACEMENT Right 09/29/2018 ??? HX TUNNELED VENOUS PORT PLACEMENT Left 05/11/2019 removal of left power flow port & replacement of left power flow port 05/11/2019 ??? MI ESOPHAGOGASTRODUODENOSCOPY TRANSORAL DIAGNOSTIC N/A 03/08/2018 ESOPHAGOGASTRODUODENOSCOPY performed by Ceasar Vega MD at [facility] No outpatient medications have been marked as taking for the 08/24/21 encounter (Hospital Encounter). Allergies Allergen Reactions ??? Adhesive Tape-Silicones Hives ??? Green Pepper Hives ??? Adhesive Unknown ??? Aspartame Headache Social History Tobacco Use ??? Smoking status: Current Every Day Smoker Packs/day: 1.00 Years: 18.00 Pack years: 18.00 Types: Cigarettes ??? Smokeless tobacco: Never Used ??? Tobacco comment: nicotine patch requested Substance Use Topics ??? Alcohol use: No Family History Problem Relation Name Age of Onset ??? Diabetes Father ??? High Cholesterol Father ??? Hypertension Father ??? Stroke Mother ??? Heart Disease Mother ??? Thyroid Disease Mother ??? High Cholesterol Mother ??? Heart Disease Maternal Grandmother ??? Diabetes Maternal Grandmother ??? Diabetes Paternal Grandmother ??? Diabetes Mother Review of Systems Review of Systems Constitutional: Negative for chills, fever and malaise/fatigue. HENT: Negative for hearing loss. Eyes: Negative for blurred vision. Respiratory: Positive for shortness of breath. Negative for cough. Cardiovascular: Positive for chest pain, palpitations and leg swelling. Gastrointestinal: Negative for abdominal pain, diarrhea, heartburn, nausea and vomiting. Genitourinary: Negative for dysuria, frequency and urgency. Musculoskeletal: Negative for falls and myalgias. Skin: Negative for itching and rash. Neurological: Negative for dizziness, loss of consciousness and headaches. Psychiatric/Behavioral: Negative for depression. 12 System review completed, pertinent negatives and positive listed above and in HPI. Objective: Patient Vitals for the past 8 hrs: BP Temp Temp src Pulse Resp SpO2 Height Weight 08/24/21 1147 104/57 -- -- 95 18 94 % -- -- 08/24/21 1145 -- -- -- 94 13 90 % -- -- 08/24/21 1130 (!) 91/48 -- -- 91 17 91 % -- -- 08/24/21 1115 96/53 -- -- 94 19 (!) 88 % -- -- 08/24/21 1100 102/57 -- -- 97 14 95 % -- -- 08/24/21 1050 (!) 126/97 -- -- (!) 108 22 99 % -- -- 08/24/21 1037 138/80 -- -- (!) 103 29 99 % -- -- 08/24/21 1033 138/80 98.5 ??F (36.9 ??C) Oral (!) 114 20 100 % 5' 5 (1.651 m) 83.5 kg (184 lb) General appearance: alert, mild distress Head: atraumatic, Normocephalic, without obvious abnormality Eyes: conjunctivae/corneas clear. PERRL, EOM's intact. Neck: supple, symmetrical, trachea midline, no adenopathy, thyroid: not enlarged, symmetric, no tenderness/mass/nodules, no carotid bruit, no JVD and no stridor Lungs: clear to auscultation bilaterally, normal respiratory effort Heart: normal rate, regular rhythm, normal S1, S2, no murmurs, rubs, clicks or gallops Abdomen: Soft, non-tender. Bowel sounds normal. No masses, no organomegaly. Extremities: extremities normal, atraumatic, no cyanosis or edema, intact distal pulses, moves all extremities equally, no edema, redness or tenderness in the calves or thighs, normal strength, normal tone Skin: Skin color, texture, turgor normal. No rashes or lesions Neurologic: Grossly normal Musculoskeletal: no joint tenderness, deformity or swelling ECG: I have personally reviewed this EKG tracing and agree with the following. Results for orders placed or performed during the hospital encounter of 08/24/21 EKG 12-LEAD Narrative Stationary ECG Study [facility] Test Date: 08/24/2021 10:30 AM Pat Name: LINDA DOSS Department: 40 Room: 06 Gender: F Electronic Health Records Specialist: : 1975 Requested By: YAAKOV BLACK Order Number: [id number] Reading MD: Measurements Intervals [place] Rate: 108 P: 76 MI: 162 QRS: 81 QRSD: 87 T: -41 QT: 341 QTc: 457 Interpretive Statements Sinus tachycardia Consider left atrial enlargement Low voltage, precordial leads Nonspecific T abnormalities, inferior leads ECHO: No results found for this or any previous visit. Data Review: Results for orders placed or performed during the hospital encounter of 08/24/21 (from the past 24 hour(s)) TROPONIN BASELINE, 5TH GEN Result Value Ref Range TROPONIN T, BASELINE 5TH GEN <6 <=10 ng/L BASIC METABOLIC PANEL Result Value Ref Range SODIUM 130 (L) 136 - 145 mmol/L POTASSIUM 4.0 3.5 - 5.0 mmol/L CHLORIDE 93 (L) 98 - 107 mmol/L CO2 17 (L) 22 - 29 mmol/L CALCIUM 8.7 8.6 - 10.2 mg/dL BUN 9 6 - 20 mg/dL CREATININE 0.26 (L) 0.51 - 0.95 mg/dL GLUCOSE 314 (H) 74 - 99 mg/dL GFR >60 >=60 mL/min/1.73 sq meter ANION GAP 20 (H) 8 - 16 mmol/L CBC WITH DIFFERENTIAL Result Value Ref Range WBC 12.1 (H) 4.0 - 9.8 K/uL RBC 4.10 3.90 - 4.90 M/uL HEMOGLOBIN 13.6 11.8 - 14.8 g/dL HEMATOCRIT 37.8 35.5 - 44.0 % MCV 92.2 82.0 - 99.0 fL MCH 33.2 (H) 27.2 - 32.6 pg MCHC 36.0 (H) 31.5 - 35.5 g/dL RDW 16.4 (H) 11.5 - 14.5 % RDW-STDEV 55.7 (H) 37.1 - 48.7 fL PLATELETS 353 (H) 140 - 350 K/uL MPV 9.5 9.3 - 12.4 fL NEUTROPHILS 76 % LYMPHOCYTES 18 % MONOCYTES 4 % EOSINOPHILS 0 % BASOPHILS 0 % IMMATURE GRANULOCYTES 2 % NEUTROPHIL ABSOLUTE 9.14 (H) 1.90 - 7.00 K/uL LYMPHOCYTE ABSOLUTE 2.22 0.70 - 4.50 K/uL MONOCYTE ABSOLUTE 0.43 0.10 - 1.30 K/uL EOSINOPHIL ABSOLUTE 0.02 0.00 - 0.70 K/uL BASOPHILS ABSOLUTE 0.03 0.00 - 0.20 K/uL IMMATURE GRANULOCYTES ABSOLUTE 0.23 (H) 0.00 - 0.03 K/uL Radiologic studies: I have personally reviewed these images and agree with the following. XR CHEST PA OR AP 1 VW Result Date: 08/24/2021 PORTABLE AP VIEW OF THE CHEST DATE: 08/24/2021 10:51 AM HISTORY: Shortness of Breath SOB. COMPARISON: 05/17/2018 FINDINGS: Lung volumes are small. Lungs are clear. No pneumothorax. No pleural effusion.The cardiac and mediastinal silhouettes are normal. Bilateral port type central venous catheters terminate near the superior cavoatrial junction. IMPRESSION: No convincing evidence of active disease. DICTATION LOCATION: Location [facility] Assessment: Principal Problem: Allergic reaction caused by a drug Active Problems: Metabolic syndrome Family history of early CAD Hypothyroidism Chylomicronemia syndrome Hypertriglyceridemia Depression with anxiety Type 2 diabetes mellitus without complication, with long-term current use of insulin GERD (gastroesophageal reflux disease) History of plasmapheresis Mixed hyperlipidemia History of pancreatitis Acquired hypothyroidism Chronic pancreatitis Precordial pain Plan: Principal Problem: Allergic reaction caused by a drug - continue H1, H2 blockers - Steroids - Epi at bedside - will need to discuss with Doctor managing plasma exchange possible etiologies of reaction. Active Problems: Precordial pain/Metabolic syndrome/Family history of early CAD - Check ECHO. Trend Trops. May need ischemic work up otherwise Outpatient Stress testing. Hypothyroidism - synthroid Chylomicronemia syndrome - follow up for plasma exchange Hypertriglyceridemia - Zetia, Vascepa. If develops symptoms of pancreatitis would start insulin infusion Depression with anxiety - home Wellbutrin and SSRI DM2 - Glargine 35u BID, Prandial 5u, SSI GERD - PPI Mixed hyperlipidemia - Statin History of pancreatitis - noted Chronic pancreatitis - monitor DVT Prophylaxis - Enoxaparin Current Planned Disposition - home Discussed Case with Care Team & Dr. Kern regarding current workup and ongoing plan. Plan discussed with patient; questions answered; patient agrees with current plan. Current Code Status -\ Full Dr. Maurice documented in this encounter ED Notes * Uyen Mercedes RN - 08/24/2021 12:27 PM CDT Pt denies any needs at this time. Pt states that she is feeling much better. Swelling to her periorbital is a little better and the redness to her face is gone. No distress noted. * Yaakov Kern MD - 08/24/2021 10:24 AM CDTAssociated Order(s): Critical Care HISTORY OF PRESENT ILLNESS Linda Doss, a 45 y.o. female presents to the ED with a Chief Complaint of Allergic Reaction Subjective Documented Triage Chief Complaint: Allergic Reaction 10:28 AM: Linda Doss is a 45 y.o. female with a history of HTN, HLD, type 2 diabetes mellitus, GERD, hypothyroidism, PCOS, chronic pancreatitis, chylomicronemia syndrome, who presents to the Emergency Department with concerns for an allergic reaction during her plasmapheresis today just prior toarrival here. Patient reports that she has been receiving plasmapheresis treatments for hypertriglyceridemia since 2017. She says she had an allergic reaction to the plasma last week but had never had one before then and she states that they used different plasma last week but that she had a plasmapheresis treatment yesterday and was totally fine. She states that she was sent [facility] to the ED due to concerns for an allergic reaction. Patient complains of chest pain, palpitations ( funny feeling in my chest ), shortness of breath, difficulty breathing, neck tightness, nausea, feeling flushed, and a frequent dry cough. She says allof her symptoms except for the chest pain and palpitations started after her port was accessed for her plasmapheresis treatment; per chart review, the patient started complaining of chest pain 4 minutes into the plasmapheresis treatment and so the procedure was stopped at that time. Patient states that the chest pain started while she was being accessed but she didn't say anything to the staff because the pain was mild. She says the pain got worse after starting the plasmapheresis and so she let the staff know. Upon arrival at the ED, patient states that she is still having significant chest pain, difficulty breathing, and shortness of breath. She says it hurts to breath and causes a burning pain in her chest. She says her breathing feels restricted in her neck/throat area with tightness in her neck, as opposed to feeling restricted in her chest/lungs. She says her eyes are always slightly swollen with slight pus drainage but she states that the swelling and discharge is worse than normal. Patient denies itchiness, hives, or other skin rashes. She denies swelling of her tongue or lips. Patient states that she has had issues with anxiety, panic attacks in the past but she denies feeling anxious and states that this (plasmapheresis) is a routine procedure for her at this point andthat she doesn't get scared or anxious for the treatment. Physician(s): Guerrero Middleton PA-C History provided by: The patient and medical records Arrived by: Private vehicle Arrived from: An outside facility ([facility] services) REVIEW OF SYSTEMS Review of Systems Constitutional: Negative for fatigue and fever. HENT: No tongue swelling No lip swelling Eyes: Positive for discharge. Negative for visual disturbance. +Eye swelling Respiratory: Positive for cough and shortness of breath. Cardiovascular: Positive for chest pain and palpitations. Gastrointestinal: Positive for nausea. Negative for abdominal pain, diarrhea and vomiting. Endocrine: Negative for polydipsia and polyphagia. Genitourinary: Negative for dysuria. Musculoskeletal: +Neck tightness Skin: Negative for color change, rash and wound. No itching No hives Neurological: Negative for weakness and headaches. Psychiatric/Behavioral: Negative for agitation and confusion. The patient is not nervous/anxious. PAST MEDICAL HISTORY REVIEWED MEDICAL: Patient has a past medical history of Anxiety, Chylomicronemia syndrome, Chylomicronemia syndrome, Depression, Diabetes mellitus, DM type 2 (diabetes mellitus, type 2), Family history of diabetes mellitus (05/15/2011), Family history of early CAD (05/15/2011), GERD (gastroesophageal reflux disease), High triglycerides, History of gestational diabetes (05/15/2011), HLD (hyperlipidemia), Hypothyroidism, Metabolic syndrome (05/15/2011), Pancreatitis, PCOS (polycystic ovarian syndrome) (05/15/2011), andSmoker. She has no past medical history of CRI (chronic renal insufficiency). SURGICAL: Patient has a past surgical history that includes hysterectomy; appendectomy; pr esophagogastroduodenoscopy transoral diagnostic (N/A, 03/08/2018); tunneled venous catheter placement (Right, 09/29/2018); tonsillectomy; and tunneled venous port placement (Left, 05/11/2019). FAMILY: Patient's family history includes Diabetes in her father, maternal grandmother, mother, and paternal grandmother; Heart Disease in her maternal grandmother and mother; High Cholesterol in her father and mother; Hypertension in her father; Stroke in her mother; Thyroid Disease in her mother. SOCIAL: reports that she has been smoking cigarettes. She has a 18.00 pack-year smoking history. She has never used smokeless tobacco. She reports being sexually active and has had partner(s) who are male. She reports that she does not drink alcohol and does not use drugs. No history on file. Social History Other Topics Concern ??? Not on file ALLERGIES Adhesive tape-silicones, Green pepper, Adhesive, and Aspartame HOME MEDICATIONS Current Discharge Medication List CONTINUE these medications which have NOT CHANGED Details insulin aspart U-100 (NovoLOG Flexpen U-100 Insulin) 100 unit/mL pen syringe INJECT APPROXIMATELY 50 UNITS A DAY PER CORRECTION DOSE WITH MEALS Qty: 15 mL, Refills: 0 empagliflozin (Jardiance) 25 mg tablet TAKE 1 TABLET BY MOUTH EVERY CROCHET MACHINE OPERATOR Qty: 30 Tablet, Refills: 0 Vascepa 1 gram Capsule TAKE 2 CAPSULES (2 GRAMS) BY MOUTH 2 TIMES DAILY WITH MEALS. Qty: 120 Capsule, Refills: 0 fenofibrate (LOFIBRA) 160 mg Tablet TAKE 1 TABLET BY MOUTH EVERY DAY Qty: 90 Tablet, Refills: 0 metFORMIN (GLUCOPHAGE) 1,000 mg tablet TAKE 1 TABLET (1,000 MG) BY MOUTH 2 TIMES DAILY WITH MEALS. Qty: 180 Tablet, Refills: 0 buPROPion HCL (WELLBUTRIN SR) 150 mg Sustained Release 12 hour tablet TAKE 1 TABLET BY MOUTH 2 TIMES DAILY Qty: 60 Tablet, Refills: 5 citalopram (CeleXA) 40 mg tablet TAKE 1 TABLET BY MOUTH EVERY DAY Qty: 90 Tablet, Refills: 1 levothyroxine 200 mcg tablet Take 1 Tablet (200 mcg) by mouth daily. Once daily on an empty stomach Qty: 90 Tablet, Refills: 3 Associated Diagnoses: Acquired hypothyroidism insulin glargine (Basaglar KwikPen U-100 Insulin) 100 unit/mL pen syringe 35 units bid Qty: 60 mL, Refills: 1 LORazepam (ATIVAN) 1 mg tablet Take 1 Tablet (1 mg) by mouth 2 times daily as needed for Anxiety. Qty: 60 Tablet, Refills: 2 Associated Diagnoses: Depression with anxiety diphenhydrAMINE (BENADRYL) 25 mg tablet Take 1 Tablet (25 mg) by mouth every 8 hours as needed for Itching. Qty: 16 Tablet, Refills: 0 Fish Oil-Centuria-3 Fatty Acids 360-1,200 mg Capsule Take 2 Capsules by mouth 2 times daily with meals. Dexcom G6 Sensor Device Change sensor every 10 days. (9 sensors = 90 days) Qty: 9 Each, Refills: 1 Dexcom G6 Transmitter Device Change transmitter every 90 days Qty: 1 Each, Refills: 1 varenicline (Chantix) 0.5 mg Tablet Take 1 Tablet (0.5 mg) by mouth 2 times daily. Qty: 60 Tablet, Refills: 0 ondansetron (ZOFRAN ODT) 4 mg Tablet, Rapid Dissolve Dissolve 1 tablet on top of tongue, then swallow with saliva every 6 hours as needed for nausea/vomiting. Qty: 30 Tablet, Refills: 0 pantoprazole (PROTONIX) 40 mg Tablet, Delayed Release (E.C.) Take 40 mg by mouth 2 times daily . traZODone (DESYREL) 100 mg tablet Take 100 mg by mouth daily at bedtime . rosuvastatin (CRESTOR) 20 mg tablet Take 20 mg by mouth daily at bedtime. Objective PHYSICAL EXAM INITIAL VS BP: 138/80 (08/24/211032), Heart Rate: (!) 114 bpm (08/24/211032), Resp: 20 (08/24/211032), Pulse: (!) 114 (08/24/211032), Temp: 98.5 ??F (36.9 ??C) (08/24/211032), Temp src: Oral (08/24/211032), SpO2: 100 % (08/24/211032), Height: 5' 5 (165.1 cm) (08/24/211032), Weight: 83.5 kg (184 lb) (08/24/211032), BMI (Calculated): 30.62 (08/24/211032) No LMP recorded. Patient has had a hysterectomy. Physical Exam Vitals and nursing note reviewed. Exam conducted with a canine service instructor trainer present. Constitutional: General: She is not in acute distress. Appearance: Normal appearance. She is not ill-appearing. HENT: Head: Normocephalic and atraumatic. Nose: Nose normal. Mouth/Throat: Mouth: Mucous membranes are moist. Eyes: Extraocular Movements: Extraocular movements intact. Pupils: Pupils are equal, round, and reactive to light. Pupils are equal. Comments: Edema of superior orbit and upper lids. Cardiovascular: Rate and Rhythm: Normal rate and regular rhythm. Pulses: Normal pulses. Heart sounds: Normal heart sounds. Pulmonary: Effort: Pulmonary effort is normal. Breath sounds: Normal breath sounds. No stridor. No wheezing. Comments: Lungs are clear, no wheezing. Frequent dry cough. Abdominal: General: Abdomen is flat. Palpations: Abdomen is soft. Tenderness: There is no abdominal tenderness. Musculoskeletal: General: Normal range of motion. Cervical back: Normal range of motion and neck supple. Right lower leg: No edema. Left lower leg: No edema. Skin: General: Skin is warm and dry. Capillary Refill: Capillary refill takes less than 2 seconds. Neurological: General: No focal deficit present. Mental Status: She is alert and oriented to person, place, and time. Sensory: No sensory deficit. Motor: No weakness. Psychiatric: Mood and Affect: Mood normal. Behavior: Behavior normal. DIAGNOSTICS LAB: BASIC METABOLIC PANEL - Abnormal Result Value SODIUM 130 (*) POTASSIUM 4.0 CHLORIDE 93 (*) CO2 17 (*) CALCIUM 8.7 BUN 9 CREATININE 0.26 (*) GLUCOSE 314 (*) GFR >60 ANION GAP 20 (*) CBC WITH DIFFERENTIAL - Abnormal WBC 12.1 (*) RBC 4.10 HEMOGLOBIN 13.6 HEMATOCRIT 37.8 MCV 92.2 MCH 33.2 (*) MCHC 36.0 (*) RDW 16.4 (*) RDW-STDEV 55.7 (*) PLATELETS 353 (*) MPV 9.5 NEUTROPHILS 76 LYMPHOCYTES 18 MONOCYTES 4 EOSINOPHILS 0 BASOPHILS 0 IMMATURE GRANULOCYTES 2 NEUTROPHIL ABSOLUTE 9.14 (*) LYMPHOCYTE ABSOLUTE 2.22 MONOCYTE ABSOLUTE 0.43 EOSINOPHIL ABSOLUTE 0.02 BASOPHILS ABSOLUTE 0.03 IMMATURE GRANULOCYTES ABSOLUTE 0.23 (*) TROPONIN BASELINE, 5TH GEN - Normal TROPONIN T, BASELINE 5TH GEN <6 TROPONIN 2 HR, 5TH GEN TROPONIN 6 HR, 5TH GEN RADIOLOGY: XR CHEST PA OR AP 1 VW Radiologist Impression IMPRESSION: No convincing evidence of active disease. DICTATION LOCATION: Location [address] [place] [address] XR CHEST PA OR AP 1 VW EKG: Time completed was 10:38 AM. Sinus rhythm, normal axis, no ST changes, nonspecific T wave changes in II, III, and aVF, low voltage. No change from prior EKG dated 12/26/20. Abnormal EKG. PROCEDURES Critical Care Performed by: Yaakov Kern MD Authorized by: Yaakov Kern MD Critical care provider statement: Critical care time (minutes): 35 Critical care time was exclusive of: Separately billable procedures and treating other patients Critical care was necessary to treat or prevent imminent or life-threatening deterioration of the following conditions: allergic reaction requiring epinephrine. Critical care was time spent personally by me on the following activities: Development of treatmentplan with patient or surrogate, discussions with consultants, evaluation of patient's response to treatment, examination of patient, obtaining history from patient or surrogate, ordering and performing treatments and interventions, pulse oximetry, re-evaluation of patient's condition, review of oldcharts, ordering and review of laboratory studies and ordering and review of radiographic studies MEDICAL DECISION MAKING AND PLAN OF CARE --On initial examination, saw and evaluated patient. Discussed plan to first give a dose of epinephrine and then check labs, cardiac enzymes, an EKG, and a chest x-ray and give medications for her symptoms. Patient received 0.4 mg of epi during the initial evaluation. Will provide IV Benadryl 25 mg, IV SOLU- Medrol 125 mg, and IV Pepcid 20 mg. Patient understands and agrees with the plan. ED provider and ED nurse verbally discussed patient plan of care at this time. 12:33 PM: Patient re-evaluated. She is feeling much better, lungs are clear, and she is in no distress. 12:46 PM: [facility] ticket placed to arrange for admission to the Bridge floor. 1:14 PM: I discussed with Dr. Chin Maurice all pertinent aspects of the case including HPI details, physical exam findings, testing completed, medications given, the patient's current condition, myclinical impression, and the need for admission for further evaluation and treatment. Dr. Maurice agrees to accept the patient for admission to the Medical floor. Updated patient on results, diagnosis, and plan for admission. Patient agrees with the plan. The opportunity for questions was given and questions were answered to the patient's satisfaction. All questions and concerns have been addressed. ED Course as of 08/24/21 1523 Katie Aug 24, 2021 1154 Differential diagnosis: Allergic reaction, ACS, esophageal spasm, gastritis, esophagitis, low suspicion for pancreatitis secondary to hypercholesterolemia. Plan: Because the patient's upper airway symptoms and history of allergic reaction to albumin, patient given a dose of epinephrine, as well as Solu- Medrol, famotidine, diphenhydramine. Will monitor very closely. We will track her troponins. Her EKG is nonischemic. Likely need admission due to a somewhat atypical either allergic reaction or atypical chest pain presentation. [BF] ED Course User Index [BF] Yaakov Kern MD [facility] I have reviewed previous: notes and ECG I have reviewed current: labs, ECG and imaging I have reviewed nursing notes related to past medical history, social history, and review of systems and agree, unless otherwise noted. Consults: hospitalist Medications Administered During the ED Stay from 08/24/2021 1024 to 08/24/2021 1451 Date/Time Order Dose Route Action 08/24/2021 1045 EPINEPHRINE 1 MG/ML (1 ML) INJECTION SOLUTION (CABINET OVERRIDE) 0.4 mg Given 08/24/2021 1045 methylPREDNISolone sodium succinate (SOLU-Medrol) 125 mg in water sterile 2 mL injection 125 mg IV Given 08/24/2021 1045 diphenhydrAMINE (BENADRYL) injection 25 mg 25 mg IV Given 08/24/2021 1045 famotidine PF (PEPCID) 20 mg/2 mL injection 20 mg 20 mg IV Given Current Discharge Medication List CONTINUE these medications which have NOT CHANGED Details insulin aspart U-100 (NovoLOG Flexpen U-100 Insulin) 100 unit/mL pen syringe INJECT APPROXIMATELY 50 UNITS A DAY PER CORRECTION DOSE WITH MEALS Qty: 15 mL, Refills: 0 empagliflozin (Jardiance) 25 mg tablet TAKE 1 TABLET BY MOUTH EVERY CROCHET MACHINE OPERATOR Qty: 30 Tablet, Refills: 0 Vascepa 1 gram Capsule TAKE 2 CAPSULES (2 GRAMS) BY MOUTH 2 TIMES DAILY WITH MEALS. Qty: 120 Capsule, Refills: 0 fenofibrate (LOFIBRA) 160 mg Tablet TAKE 1 TABLET BY MOUTH EVERY DAY Qty: 90 Tablet, Refills: 0 metFORMIN (GLUCOPHAGE) 1,000 mg tablet TAKE 1 TABLET (1,000 MG) BY MOUTH 2 TIMES DAILY WITH MEALS. Qty: 180 Tablet, Refills: 0 buPROPion HCL (WELLBUTRIN SR) 150 mg Sustained Release 12 hour tablet TAKE 1 TABLET BY MOUTH 2 TIMES DAILY Qty: 60 Tablet, Refills: 5 citalopram (CeleXA) 40 mg tablet TAKE 1 TABLET BY MOUTH EVERY DAY Qty: 90 Tablet, Refills: 1 levothyroxine 200 mcg tablet Take 1 Tablet (200 mcg) by mouth daily. Once daily on an empty stomach Qty: 90 Tablet, Refills: 3 Associated Diagnoses: Acquired hypothyroidism insulin glargine (Basaglar KwikPen U-100 Insulin) 100 unit/mL pen syringe 35 units bid Qty: 60 mL, Refills: 1 LORazepam (ATIVAN) 1 mg tablet Take 1 Tablet (1 mg) by mouth 2 times daily as needed for Anxiety. Qty: 60 Tablet, Refills: 2 Associated Diagnoses: Depression with anxiety diphenhydrAMINE (BENADRYL) 25 mg tablet Take 1 Tablet (25 mg) by mouth every 8 hours as needed for Itching. Qty: 16 Tablet, Refills: 0 Fish Oil-Centuria-3 Fatty Acids 360-1,200 mg Capsule Take 2 Capsules by mouth 2 times daily with meals. Dexcom G6 Sensor Device Change sensor every 10 days. (9 sensors = 90 days) Qty: 9 Each, Refills: 1 Dexcom G6 Transmitter Device Change transmitter every 90 days Qty: 1 Each, Refills: 1 varenicline (Chantix) 0.5 mg Tablet Take 1 Tablet (0.5 mg) by mouth 2 times daily. Qty: 60 Tablet, Refills: 0 ondansetron (ZOFRAN ODT) 4 mg Tablet, Rapid Dissolve Dissolve 1 tablet on top of tongue, then swallow with saliva every 6 hours as needed for nausea/vomiting. Qty: 30 Tablet, Refills: 0 pantoprazole (PROTONIX) 40 mg Tablet, Delayed Release (E.C.) Take 40 mg by mouth 2 times daily . traZODone (DESYREL) 100 mg tablet Take 100 mg by mouth daily at bedtime . rosuvastatin (CRESTOR) 20 mg tablet Take 20 mg by mouth daily at bedtime. LAST VS BP: 104/57 (08/24/21 1147), Heart Rate: 97 bpm (08/24/21 1147), Resp: 18 (08/24/21 1147), Pulse: 95(08/24/21 1147), Temp: 98.5 ??F (36.9 ??C) (08/24/21 1033), Temp src: Oral (08/24/21 1033), SpO2: 94 % (08/24/21 1147) CLINICAL IMPRESSION Final diagnoses: [R07.9] Chest pain, unspecified type (Primary) [T78.40XA] Allergic reaction, initial encounter [E78.1] Hypertriglyceridemia DISPOSITION, EDUCATION AND MEDICATION RECONCILIATION Medications reconciled. See after visit summary for patient education on discharged patients. ED Disposition ED Disposition Condition User Date/Time Comment Admit Stable Yaakov Kern MD [facility] Aug 24, 2021 1:22 PM ATTESTATION STATEMENTS This note has been prepared by Bud Ward acting as a scribe for Dr. Yaakov Kern on 08/24/21 at 2:52 PM. The scribe's documentation has been prepared under my direction and personally reviewed by me, Yaakov Kern MD , in its entirety on 08/24/21 at 3:23 PM. I confirm that the note above accurately reflects all work, treatment, procedures, and medical decision making performed by me. documented in this encounter Miscellaneous Notes * Care Plan - Caitie Walsh LPN - 08/26/2021 1:34 PM CDT Patient to be discharged home with . No distress noted at this time. No complaints noted to this nurse at this time. Patient able to make needs known and no needs noted at this time. * Care Plan - Linda Elias GN - 08/26/2021 5:50 AM CDT Pt had complaints of severe abdominal pain. Administered medication per JUN. Pt reported that toradol doesn't help her pain. Pt sleeping after norco administered. VSS. Clear lung sounds and regular heart rhythm. Adequate food intake and urine output. Will continue to monitor pt. Call light within reach. Problem: Pain, Potential/Actual Goal: Verbalizes/displays acceptable comfort level or baseline comfort level Description: Outcome: Progressing Problem: Infection Risk/Actual Goal: Infection Risk/Actual: Infection prevention, control, or resolution by discharge Description: Outcome: Progressing Problem: Safety/Fall Goal: Safety/Fall: Absence of fall, injury, harm during hospitalization Description: Outcome: Progressing Problem: Discharge Planning Goal: Identify discharge needs upon admission and through discharge Description: Outcome: Progressing Problem: Medications Goal: Absence of/Reduce Fall Risk r/t Medications Description: Patient is a fall risk because of medications (i.e. - BP meds, CV/AUTO PAINTER meds, seizure meds, diuretics, pain meds, psych meds, current chemotherapy). Potential Interventions: 1. Orthostatic VS q day; educate to dangle before rising 2. Educate patient and family on how medications increase patient's fall risk (may make dizzy, lower BP, etc) 3. Do first dose education with all med/dosage changes. Document education 4.Reassess fall risk whenever a medication is changed/added (sleeping pill, pain med, BP med dose adjustment, etc) 5. Activate bed or chair alarm while in bed or up in chair 6. Limit combination of PRN meds whenever possible (i.e. - space out narcs and benzos) 7. Schedule frequent toileting for patients on diuretic to help prevent emergencies 8. Consult pharmacy to review meds and make recommendations (determine best timing, possible dosingadjustments, or identify other education that might be appropriate for patient) 9. Use floor mats next to bed and in front of chair when patient left unattended 10.Do not leave patient unattended while toileting or showering 11.Use appropriate assistive equipment (walker, shower chair, etc) 12. Include information on high risk medications, last doses, and patient tolerance in hand-off communication Outcome: Progressing Problem: Volume/Electrolyte Status Goal: Absence of/Reduce Fall Risk r/t Volume/Electrolyte Status Description: Patient is a fall risk due to volume/electrolyte status (i.e. - electrolyte imbalances, nausea/vomiting, NPO, IV fluids). Potential Interventions: 1. Ensure blood sugar is checked at appropriate intervals and insulin dosing is given as ordered 2. Provide patient with an emesis basin or vomit bag (may need more than one at bedside) 3. Assess length of IV and/or O2 tubing if applicable 4. Ensure IV fluids are given as ordered for NPO patients to maintain hydration 5. Administer medications for nausea and vomiting as needed Outcome: Progressing Problem: Behavior Goal: Absence of/Reduce Fall Risk r/t Behavior Description: Potential Interventions: 1. Specialty low bed 2. Use floor mats next to bed and in front of chair when patient left unattended 3. Engage patient in daily routine/activity 4. Provide appropriate diversion activities (i.e. - coloring, crosswords, activity blanket, towel folding, books) 5. Alcohol withdrawal protocol/CIWA assessment as ordered 6. Encourage family to stay with patient 7. Use appropriate de-escalation techniques 8. Consulting pharmacy to review meds and make recommendations (determine best timing, possible dosing adjustments, or identify other education that might be appropriate for patient) 9. Utilize relaxation channel to soothe patient 10. Patient sitter 11. Appropriate lighting for day/night Outcome: Progressing Problem: Cardiovascular Goal: Achieve optimal cardiovascular function by discharge or maintain baseline function Outcome: Progressing Problem: Respiratory Goal: Achieve optimal respiratory function by discharge and/or maintain baseline function Outcome: Progressing * Care Plan - Savana Ledbetter RN - 08/25/2021 10:20 AM CDT Problem: Discharge Planning Goal: Identify discharge needs upon admission and through discharge Description: Outcome: Progressing CM following up with discharge planning. Discussed in TEMPO. Plan to have Echo- palpitations and tachycardia. Per field merchandiser rates now in 80's, no complaint of palpitations. Given steroids and increasedblood sugars to 400's. Continue to monitor for any discharge needs. Savana Ledbetter RN, MSN, ANA[facility]EL, [facility] Inpatient Mushroom Growing Supervisor [phone] E-mail: [email or web address] * Care Plan - Kacy Mayorga RN - 08/25/2021 4:05 AM CDT Day 1 - Current ([place] [facility]: Adult and Obstetrics) Patient, family, or healthcare designee is participating in individual care plan process Outcome: Met Patient, family, or healthcare designee understands side effects of medications Outcome: Met Problem: Pain, Potential/Actual Goal: Verbalizes/displays acceptable comfort level or baseline comfort level Description: Outcome: Variance Problem: Infection Risk/Actual Goal: Infection Risk/Actual: Infection prevention, control, or resolution by discharge Description: Outcome: Progressing Problem: Safety/Fall Goal: Safety/Fall: Absence of fall, injury, harm during hospitalization Description: Outcome: Progressing Problem: Discharge Planning Goal: Identify discharge needs upon admission and through discharge Description: Outcome: Progressing Problem: Medications Goal: Absence of/Reduce Fall Risk r/t Medications Description: Patient is a fall risk because of medications (i.e. - BP meds, CV/AUTO PAINTER meds, seizure meds, diuretics, pain meds, psych meds, current chemotherapy). Potential Interventions: 1. Orthostatic VS q day; educate to dangle before rising 2. Educate patient and family on how medications increase patient's fall risk (may make dizzy, lower BP, etc) 3. Do first dose education with all med/dosage changes. Document education 4.Reassess fall risk whenever a medication is changed/added (sleeping pill, pain med, BP med dose adjustment, etc) 5. Activate bed or chair alarm while in bed or up in chair 6. Limit combination of PRN meds whenever possible (i.e. - space out narcs and benzos) 7. Schedule frequent toileting for patients on diuretic to help prevent emergencies 8. Consult pharmacy to review meds and make recommendations (determine best timing, possible dosingadjustments, or identify other education that might be appropriate for patient) 9. Use floor mats next to bed and in front of chair when patient left unattended 10.Do not leave patient unattended while toileting or showering 11.Use appropriate assistive equipment (walker, shower chair, etc) 12. Include information on high risk medications, last doses, and patient tolerance in hand-off communication Outcome: Progressing Problem: Volume/Electrolyte Status Goal: Absence of/Reduce Fall Risk r/t Volume/Electrolyte Status Description: Patient is a fall risk due to volume/electrolyte status (i.e. - electrolyte imbalances, nausea/vomiting, NPO, IV fluids). Potential Interventions: 1. Ensure blood sugar is checked at appropriate intervals and insulin dosing is given as ordered 2. Provide patient with an emesis basin or vomit bag (may need more than one at bedside) 3. Assess length of IV and/or O2 tubing if applicable 4. Ensure IV fluids are given as ordered for NPO patients to maintain hydration 5. Administer medications for nausea and vomiting as needed Outcome: Progressing Problem: Behavior Goal: Absence of/Reduce Fall Risk r/t Behavior Description: Potential Interventions: 1. Specialty low bed 2. Use floor mats next to bed and in front of chair when patient left unattended 3. Engage patient in daily routine/activity 4. Provide appropriate diversion activities (i.e. - coloring, crosswords, activity blanket, towel folding, books) 5. Alcohol withdrawal protocol/CIWA assessment as ordered 6. Encourage family to stay with patient 7. Use appropriate de-escalation techniques 8. Consulting pharmacy to review meds and make recommendations (determine best timing, possible dosing adjustments, or identify other education that might be appropriate for patient) 9. Utilize relaxation channel to soothe patient 10. Patient sitter 11. Appropriate lighting for day/night Outcome: Progressing Problem: Cardiovascular Goal: Achieve optimal cardiovascular function by discharge or maintain baseline function Outcome: Progressing * Care Plan - Soren Cruz RN - 08/24/2021 5:00 PM CDT Problem: Pain, Potential/Actual Goal: Verbalizes/displays acceptable comfort level or baseline comfort level Description: Outcome: Progressing Problem: Infection Risk/Actual Goal: Infection Risk/Actual: Infection prevention, control, or resolution by discharge Description: Outcome: Progressing Problem: Safety/Fall Goal: Safety/Fall: Absence of fall, injury, harm during hospitalization Description: Outcome: Progressing Problem: Discharge Planning Goal: Identify discharge needs upon admission and through discharge Description: Outcome: Progressing Problem: Medications Goal: Absence of/Reduce Fall Risk r/t Medications Description: Patient is a fall risk because of medications (i.e. - BP meds, CV/AUTO PAINTER meds, seizure meds, diuretics, pain meds, psych meds, current chemotherapy). Potential Interventions: 1. Orthostatic VS q day; educate to dangle before rising 2. Educate patient and family on how medications increase patient's fall risk (may make dizzy, lower BP, etc) 3. Do first dose education with all med/dosage changes. Document education 4.Reassess fall risk whenever a medication is changed/added (sleeping pill, pain med, BP med dose adjustment, etc) 5. Activate bed or chair alarm while in bed or up in chair 6. Limit combination of PRN meds whenever possible (i.e. - space out narcs and benzos) 7. Schedule frequent toileting for patients on diuretic to help prevent emergencies 8. Consult pharmacy to review meds and make recommendations (determine best timing, possible dosingadjustments, or identify other education that might be appropriate for patient) 9. Use floor mats next to bed and in front of chair when patient left unattended 10.Do not leave patient unattended while toileting or showering 11.Use appropriate assistive equipment (walker, shower chair, etc) 12. Include information on high risk medications, last doses, and patient tolerance in hand-off communication Outcome: Progressing Problem: Volume/Electrolyte Status Goal: Absence of/Reduce Fall Risk r/t Volume/Electrolyte Status Description: Patient is a fall risk due to volume/electrolyte status (i.e. - electrolyte imbalances, nausea/vomiting, NPO, IV fluids). Potential Interventions: 1. Ensure blood sugar is checked at appropriate intervals and insulin dosing is given as ordered 2. Provide patient with an emesis basin or vomit bag (may need more than one at bedside) 3. Assess length of IV and/or O2 tubing if applicable 4. Ensure IV fluids are given as ordered for NPO patients to maintain hydration 5. Administer medications for nausea and vomiting as needed Outcome: Progressing Problem: Behavior Goal: Absence of/Reduce Fall Risk r/t Behavior Description: Potential Interventions: 1. Specialty low bed 2. Use floor mats next to bed and in front of chair when patient left unattended 3. Engage patient in daily routine/activity 4. Provide appropriate diversion activities (i.e. - coloring, crosswords, activity blanket, towel folding, books) 5. Alcohol withdrawal protocol/CIWA assessment as ordered 6. Encourage family to stay with patient 7. Use appropriate de-escalation techniques 8. Consulting pharmacy to review meds and make recommendations (determine best timing, possible dosing adjustments, or identify other education that might be appropriate for patient) 9. Utilize relaxation channel to soothe patient 10. Patient sitter 11. Appropriate lighting for day/night Outcome: Progressing * Care Plan - Savana Ledbetter RN - 08/24/2021 3:57 PM CDT Clinical documentation reviewed. Comprehensive Discharge Planning Risk Assessment was completed. Readmission Risk (patient becomes high risk with a score of 8 or greater) 0 Total Score Total Score of 9 or below does not identify immediate needs for discharge. Age Score: 4 Disability Score: 0 Prior Living Status Score: {0 Mobility Limitation Score: 0 TOTAL SCORE: 4 PCP verified as Guerrero Middleton PA-C. Patient's insurance verified as Payor: [employer] MEDICARE ADVANTAGE / Plan: [employer] PPO MCR / Product Type: PPO / . Please place consult if needs for discharge are identified. Care Management will continue to follow for discharge planning. Savana Ledbetter RN, MSN, A[place]EL, [facility] Inpatient Mushroom Growing Supervisor [phone] E-mail: [email or web address] documented in this encounter Plan of Treatment Upcoming Encounters Date Type Department Care Team (Late st Contact Info) Description 09/14/2024 3:00 PM CDT Office Visit [facility] [id number] [place] [address] Marlys Mayer MD [address] [place] [address] documented as of this encounter Procedures Procedure Name Priority Date/Time Associated Diagnosis Comments POC GLUCOSE Routine 08/26/2021 11:11 AM CDT TRIGLYCERIDE Routine 08/26/2021 10:04 AM CDT Hypertriglyceridemi a TRIGLYCERIDE Routine 08/26/2021 8:46 AM CDT Hypertriglyceridemi a CBC WITH DIFFERENTIAL Routine 08/26/2021 4:23 AM CDT BASIC METABOLIC PANEL Routine 08/26/2021 4:23 AM CDT POC GLUCOSE Routine 08/25/2021 11:13 PM CDT POC GLUCOSE Routine 08/25/2021 10:06 PM CDT POC GLUCOSE Routine 08/25/2021 6:20 PM CDT POC GLUCOSE Routine 08/25/2021 2:40 PM CDT POC GLUCOSE Routine 08/25/2021 1:44 PM CDT POC GLUCOSE Routine 08/25/2021 8:56 AM CDT ECHO COMPLETE Routine 08/25/2021 7:40 AM CDT CBC WITH DIFFERENTIAL Routine 08/25/2021 4:23 AM CDT LIPID PANEL Routine 08/25/2021 4:23 AM CDT BASIC METABOLIC PANEL Routine 08/25/2021 4:23 AM CDT POC GLUCOSE Routine 08/25/2021 2:05 AM CDT POC GLUCOSE Routine 08/24/2021 9:34 PM CDT POC GLUCOSE Routine 08/24/2021 4:04 PM CDT CBC WITH DIFFERENTIAL Stat 08/24/2021 12:21 PM CDT HEMOGLOBIN A1C Routine 08/24/2021 12:21 PM CDT XR CHEST PA OR AP 1 VW Stat 08/24/2021 10:51 AM CDT EKG 12-LEAD Stat 08/24/2021 10:30 AM CDT CRITICAL CARE Routine 08/24/2021 10:24 AM CDT TROPONIN BASELINE, 5TH GEN Stat 08/24/2021 9:46 AM CDT BASIC METABOLIC PANEL Stat 08/24/2021 9:46 AM CDT documented in this encounter Results * POC GLUCOSE (08/26/2021 11:11 AM CDT) [facility] Signature GLUCOSE POC 90 74 - 99 mg/dL 08/26/2021 11:11 AM CDT [facility] SPECIMEN SOURCE, GLUCOSE POC Whole Blood 08/26/2021 11:11 AM CDT [facility] Blood, whole 08/26/2021 11:1 1 AM CDT 08/26/2021 11:20 AM CDT Shagufta Olsen MD POINT OF CARE TESTIN G Performing Organization Address City/[facility]/ZIP Co de Phone Number [facility]# [id number] [address] [place] [address] * (ABNORMAL) TRIGLYCERIDE (08/26/2021 10:04 AM CDT) TRIGLYCERIDE 211(H) <150 mg/dL 08/26/2021 11:13 AM CDT [facility] [employer] [facility] Blood Collection / Unknown 08/26/2021 10:04 AM CDT 08/26/2021 10:24 AM CDT [facility] [employer] [facility] - 08/26/2021 11:13 AM CDT TRIGLYCERIDES ? mg/dL Normal ?< 150 Borderline High ?150 - 199 High ? 200 - 499 Very High ? >= 500 Based on AHA/NCEP Guidelines. Phoenix Riddle MD CHEMISTRY ORDERABLE S Performing Organization Address [facility] Co de Phone Number [facility] [employer] [facility]# [id number] [address] [place] [address] * (ABNORMAL) TRIGLYCERIDE (08/26/2021 8:46 AM CDT) TRIGLYCERIDE 492(H) <150 mg/dL 08/26/2021 9:42 AM CDT [facility] [employer] [facility] Blood Collection / Unknown 08/26/2021 8:46 AM CDT 08/26/2021 8:58 AM CDT [facility] [employer] [facility] - 08/26/2021 9:42 AM CDT TRIGLYCERIDES ? mg/dL Normal ?< 150 Borderline High ?150 - 199 High ? 200 - 499 Very High ? >= 500 Based on AHA/NCEP Guidelines. Phoenix Riddle MD CHEMISTRY ORDERABLE S [facility] SERVICES - [facility] CLIA# [id number] [address] [facility] [place] [address] * (ABNORMAL) BASIC METABOLIC PANEL (08/26/2021 4:23 AM CDT) Pathologist [facility] SODIUM 137 136 - 145 mmol/L 08/26/2021 5:11 AM T [employer] LABORATORY SERVICES - [facility] POTASSIUM 3.6 3.5 - 5.0 mmol/L 08/26/2021 5:11 AM [facility] [employer] LABORATORY SERVICES - [facility] CHLORIDE 100 98 - 107 mmol/L 08/26/2021 5:11 AM T [employer] [facility]ORY SERVICES - [facility] CO2 25 22 - 29 mmol/L 08/26/2021 5:11 AM [facility] [employer] [facility]ATORY SERVICES - [facility] CALCIUM 9.6 8.6 - 10.2 mg/dL 08/26/2021 5:11 AM [facility] [employer] [facility]ATORY SERVICES - [facility] BUN 11 6 - 20 mg/dL 08/26/2021 5:11 AM [facility] [employer] LAB[facility]ATORY SERVICES - [facility] CREATININE 0.65 0.51 - 0.95 mg/dL 08/26/2021 5:11 AM T [employer] [facility] - [facility] GLUCOSE 184(H) 74 - 99 mg/dL 08/26/2021 5:11 AM T [employer] [facility]ORY SERVICES - [facility] GFR >60 >=60 mL/min/1. 73 sq meter 08/26/2021 5:11 AM [facility] [employer] [facility] - [facility] Comment: eGFR calculated with 2020 CKD-EPI equation. ??Vegetarian diet, extremely high or low muscle mass, and may affect results. ??Cystatin C with Glomerular Filtration Rate is a suitable alternative for these patients. The National Kidney Foundation and the [place] Society of Nephrology (NKF-ASN) recommends using the 2020 CKD Epidemiology Collaboration (CKD-EPI) equation to calculate estimated glomerular filtration rate (eGFR). This equation is only applicable to [place] adult patients and removes race as a variable. ??Due to the variation of creatinine in different conditions, they recommend use of confirmatory tests such as eGFR from cystatin C or creatinine-cystatin GFR estimating equations, or direct measurement of clearance of an exogenous filtration marker in critical clinical decisions including but not limited to drug dosing, surgery, chemotherapy, and transplant referral. ANION GAP 12 8 - 16 mmol/L 08/26/2021 5:11 AM CDT [employer] LABORATORY SERVICES [facility] Blood Venipuncture / Unknown 08/26/2021 4:23 AM CDT 08/26/2021 4:34 AM CDT Chin Maurice DO CHEMISTRY YONI SERRANO [employer] SERVICES [facility]# [id number] [address] [facility] [place] [address] * (ABNORMAL) CBC WITH DIFFERENTIAL (08/26/2021 4:23 AM CDT) WBC 14.4(H) 4.0 - 9.8 K/uL 08/26/2021 4:50 AM CDT [employer] LABORATORY SERVICES [facility] RBC 3.20(L) 3.90 - 4.90 M/uL 08/26/2021 4:50 AM CDT [employer] LABORATORY SERVICES [facility] HEMOGLOBIN 9.7(L) 11.8 - 14.8 g/dL 08/26/2021 4:50 AM CDT [employer] SERVICES [facility] HEMATOCRIT 29.4(L) 35.5 - 44.0 % 08/26/2021 4:50 AM CDT [employer] SERVICES [facility] MCV 91.9 82.0 - 99.0 fL 08/26/2021 4:50 AM CDT [employer] SERVICES [facility] MCH 30.3 27.2 - 32.6 pg 08/26/2021 4:50 AM CDT [employer] LABORATORY SERVICES - [facility] MCHC 33.0 31.5 - 35.5 g/dL 08/26/2021 4:50 AM CDT [employer] [facility]ATORY SERVICES - [facility] RDW 16.2(H) 11.5 - 14.5 % 08/26/2021 4:50 AM CDT [employer] LABORATORY SERVICES - [facility] RDW-STDEV 55.3(H) 37.1 - 48.7 fL 08/26/2021 4:50 AM CDT [employer] LABORATORY SERVICES - . [facility] PLATELETS 284 140 - 350 K/uL 08/26/2021 4:50 AM CDT [employer] LABORATORY SERVICES - . [facility] MPV 9.6 9.3 - 12.4 fL 08/26/2021 4:50 AM CDT [employer] LABORATORY SERVICES - . [facility] NEUTROPHILS 71 % 08/26/2021 4:50 AM CDT [employer] [facility]ORY SERVICES - [facility] LYMPHOCYTES 23 % 08/26/2021 4:50 AM CDT [employer] [facility]ORY SERVICES - [facility] MONOCYTES 5 % 08/26/2021 4:50 AM CDT [employer] [facility] - [facility] EOSINOPHILS 1 % 08/26/2021 4:50 AM CDT [employer] [facility]ORY SERVICES - [facility] BASOPHILS 0 % 08/26/2021 4:50 AM CDT [employer] [facility] SERVICES - [facility] IMMATURE GRANULOCYTES 1 % 08/26/2021 4:50 AM CDT [employer] [facility]ATORY SERVICES - . [facility] Comment:IG (Immature Granulo cyte) count includes Metamyelocytes, Myelocytes, and Promyelocytes NEUTROPHIL ABSOLUTE 10.13(H) 1.90 - 7.00 K/uL 08/26/2021 4:50 AM CDT [employer] [facility] LYMPHOCYTE ABSOLUTE 3.29 0.70 - 4.50 K/uL 08/26/2021 4:50 AM CDT [employer] [facility] MONOCYTE ABSOLUTE 0.66 0.10 - 1.30 K/uL 08/26/2021 4:50 AM CDT [employer] [facility] EOSINOPHIL ABSOLUTE 0.08 0.00 - 0.70 K/uL 08/26/2021 4:50 AM CDT [employer] [facility] BASOPHILS ABSOLUTE 0.02 0.00 - 0.20 K/uL 08/26/2021 4:50 AM CDT [facility]ORY SERVICES - [facility] IMMATURE GRANULOCYTES ABSOLUTE 0.19(H) 0.00 - 0.03 K/uL 08/26/2021 4:50 AM CDT [facility]ORY SERVICES - [facility] Blood Venipuncture / Unknown 08/26/2021 4:23 AM CDT 08/26/2021 4:35 AM CDT Chin Maurice DO HEMATOLOGY ORD ERABLES Performing Organization Address [facility]/ZIP Co de Phone Number [facility] CLIA# [id number] [address] [place] [address] * (ABNORMAL) POC GLUCOSE (08/25/2021 11:13 PM CDT) GLUCOSE POC 316(H) 74 - 99 mg/dL 08/25/2021 11:13 PM CDT [facility] LABOR[facility]ORY SERVICES - [facility] SPECIMEN SOURCE, GLUCOSE POC Whole Blood 08/25/2021 11:13 PM CDT [facility] COMMENT, GLU POC Notified RN/MD 08/25/2021 11:13 PM CDT [facility] LABOR[facility]ORY SERVICES [facility] Blood, whole 08/25/2021 11:1 3 PM CDT 08/25/2021 11:21 PM CDT Shagufta Olsen MD POINT OF CARE TESTIN G Performing Organization Address [facility]/ZIP Co de Phone Number [facility] CLIA# [id number] [address] [place] [address] * (ABNORMAL) POC GLUCOSE (08/25/2021 10:06 PM CDT) GLUCOSE POC 329(H) 74 - 99 mg/dL 08/25/2021 10:06 PM CDT [facility] SPECIMEN SOURCE, GLUCOSE POC Whole Blood 08/25/2021 10:06 PM CDT [facility] COMMENT, GLU POC Notified RN/MD 08/25/2021 10:06 PM CDT [facility] LABOR[facility]ORY SERVICES [facility] Blood, whole 08/25/2021 10:0 6 PM CDT 08/25/2021 10:24 PM CDT Shagufta Olsen MD POINT OF CARE TESTIN Performing Organization Address [facility] Co de Phone Number [facility]# [id number] [address] [place] [address] * (ABNORMAL) POC GLUCOSE (08/25/2021 6:20 PM CDT) GLUCOSE POC 359(H) 74 - 99 mg/dL 08/25/2021 6:20 PM CDT [facility] LABOR[facility]ORY SERVICES [facility] SPECIMEN SOURCE, GLUCOSE POC Whole Blood 08/25/2021 6:20 PM CDT [facility] LABORATORY SERVICES [facility] COMMENT, GLU POC Notified BREANN 08/25/2021 6:20 PM CDT [facility]OR[facility]ORY SERVICES [facility] Blood, whole 08/25/2021 6:20 PM CDT 08/25/2021 6:27 PM CDT Shagufta Olsen MD POINT OF CARE TESTJERONIMO Serrano Performing Organization Address [facility] Co de Phone Number [facility]# [id number] [address] [place] [address] * (ABNORMAL) POC GLUCOSE (08/25/2021 2:40 PM CDT) GLUCOSE POC 418(HH) 74 - 99 mg/dL 08/25/2021 2:40 PM CDT [facility] SPECIMEN SOURCE, GLUCOSE POC Whole Blood 08/25/2021 2:40 PM CDT [facility] COMMENT, GLU POC Notified BREANN 08/25/2021 2:40 PM CDT [facility]ORY SERVICES [facility] Blood, whole 08/25/2021 2:40 PM CDT 08/25/2021 2:53 PM CDT Shagufta Olsen MD POINT OF CARE FLY Serrano Performing Organization Address [facility]/ZIP Co de Phone Number [facility] [employer] [facility]# [id number] [address] [place] [address] * (ABNORMAL) POC GLUCOSE (08/25/2021 1:44 PM CDT) GLUCOSE POC 406(HH) 74 - 99 mg/dL 08/25/2021 1:44 PM CDT [facility] LABORATORY SERVICES - [facility] SPECIMEN SOURCE, GLUCOSE POC Whole Blood 08/25/2021 1:44 PM CDT [facility] LABORATORY SERVICES [facility] COMMENT, GLU POC Notified RN/MD 08/25/2021 1:44 PM CDT [facility] LABOR[facility]ORY SERVICES [facility] COMMENT 2, GLU POC To be Repeated 08/25/2021 1:44 PM CDT [facility]ORY SERVICES [facility] Blood, whole 08/25/2021 1:44 PM CDT 08/25/2021 2:06 PM CDT Shagufta Olsen MD POINT OF CARE FLY Serrano Performing Organization Address [facility] Co de Phone Number [facility] [employer] [facility]# [id number] [address] [place] [address] * (ABNORMAL) POC GLUCOSE (08/25/2021 8:56 AM CDT) GLUCOSE POC 281(H) 74 - 99 mg/dL 08/25/2021 8:56 AM CDT [facility] LABORATORY SERVICES [facility] SPECIMEN SOURCE, GLUCOSE POC Whole Blood 08/25/2021 8:56 AM CDT [facility] LABORATORY SERVICES [facility] Blood, whole 08/25/2021 8:56 AM CDT 08/25/2021 9:06 AM CDT Shagufta Olsen MD POINT OF CARE TESTJERONIMO Serrano [facility] LAB[facility]ORY SERVICES - [facility]# [id number] [address] [place] [address] * ECHO COMPLETE (08/25/2021 7:40 AM CDT) EJECTION FRACTION EF: INTERFACE SYSTEM 08/25/2021 7:20 AM CDT Narrative INTERFACE SYSTEM - 08/25/2021 8:24 AM CDT -- [facility] [address] [place] [address] [email or web address] -- Transthoracic Echocardiography -- Patient: ? Linda Doss MRN: ? [id number] Study ID: ?ECHO COMPLETE Gender: ?F : ? 1975 Age: ? 45 Race: ?CAU Height ? 165.1cm Study Date: ?08/25/2021 Weight: ?83.5kg Access. #: ? [id number] Account #: ? [id number] BP: -- -- *Referring Physician:* Chin Maurice *Ordering Physician:* ??Chin Maurice Satellite Specialist: nuclear power reactor operator: Nurse: -- Indications: Chest pain. ??SOB / HENDRIX. STUDY CONCLUSIONS: SUMMARY: -- - Left ventricle: The cavity size was normal. Wall thickness was normal. ??Global systolic function was normal. Left ventricular diastolic function ??parameters were normal. The ejection fraction (2-plane MOD) is 63%. - Mitral valve: Mild regurgitation. - Left atrium: The atrium was normal in size. - Right ventricle: The cavity size was normal. Systolic function was normal. - Pulmonary arteries: Systolic pressure could not be estimated. - Pericardium: There was no pericardial effusion. -- Cardiac Anatomy: LEFT VENTRICLE: ??The cavity size was normal. Wall thickness was normal. Global systolic function was normal. Left ventricular diastolic function parameters were normal. AORTIC VALVE: ?? Structurally normal valve. Trileaflet. ??Doppler: ?? No significant regurgitation. ?The LVOT to aortic valve VTI ratio is 0.93. The valve area by the velocity-time integral method is 2.9cm^2. The valve area index by the velocity-time integral method is 1.53cm^2/m^2. The ratio of LVOT to aortic valve peak velocity is 0.84. The valve area by the peak velocity method is 2.6cm^2. The valve area index by the peak velocity method is 1.38cm^2/m^2. ?The mean systolic gradient is 2mm Hg. The peak systolic gradient is 5mm Hg. AORTA: ??Aortic root: The aortic root was normal in size. MITRAL VALVE: ?? Structurally normal valve. ?Doppler: ?? Mild regurgitation. The peak diastolic gradient is 2mm Hg. LEFT ATRIUM: ??The atrium was normal in size. RIGHT VENTRICLE: ??The cavity size was normal. Systolic function was normal. PULMONIC VALVE: ??Not well visualized. ??Structurally normal valve. ?Doppler: No significant regurgitation. The mean systolic gradient is 2mm Hg. The peak systolic gradient is 4mm Hg. TRICUSPID VALVE: ?? Structurally normal valve. ?Doppler: ?? No significant regurgitation. PULMONARY ARTERY: ?? Systolic pressure could not be estimated. RIGHT ATRIUM: ??The atrium was normal in size. Prominant eustachian valve. PERICARDIUM: ??There was no pericardial effusion. Systemic veins: Inferior vena cava: The vessel was normal in size. Measurements -- -- Left ventricle ? Value ?Ref SV ? 59 ?ml ? SV/bsa ? 31 ?ml/m^2 ?? EDV, 2-p ? (N) ?? 71 ?ml ? 46 - 106 ESV, 2-p ? (N) ?? 27 ?ml ? 14 - 42 EF, 2-p ?(N) ?? 63 ?% ?54 - 74 SV, 2-p ?45 ?ml ? EDV/bsa, 2-p ? (N) ?? 37 ?ml/m^2 ?? 29 - 61 ESV/bsa, 2-p ? (N) ?? 14 ?ml/m^2 ?? 8 - 24 SV/bsa, 2-p ?23.4 ??ml/m^2 ?? E', lat juancho, TDI ? (N) ?? 10.7 ??cm/sec ?? >=10.0 E/e', lat juancho, TDI ? 7 ? E', med juancho, TDI ? (N) ?? 8.2 ?? cm/sec ?? >=7.0 E/e', med juancho, TDI ? 9 ? E', avg, TDI ? 9.4 ?? cm/sec ?? E/e', avg, TDI ? (N) ?? 8 ?<=14 LVOT ? Value ?Ref Diam, S ?2.0 ?? cm ? Area ? 3.1 ?? cm^2 ? Peak vick, S ?0.91 ??m/sec ? VTI, S ? 18.8 ??cm ? Right ventricle ?Value ?Ref PERICO minor ax, A4C base (N) ?? 3.4 ?? cm ? 2.5 - 4.1 TAPSE, MM ?(N) ?? 2.2 ?? cm ? 1.7 - 3.1 S' lateral ? (N) ?? 11.2 ??cm/sec ?? 6.0 - 13.4 RVOT ? Value ?Ref Peak grad, S ? 2 ? mm Hg ? Left atrium ?Value ?Ref AP dim, ES ? (N) ?? 3.4 ?? cm ? 2.7 - 3.8 AP dim index ? (N) ?? 1.8 ?? cm/m^2 ?? 1.5 - 2.3 Vol, ES, 2-p ? 57 ?ml ? Vol/bsa, ES, 2-p ? (N) ?? 30 ?ml/m^2 ?? 16 - 34 Right atrium ? Value ?Ref Area, ES, A4C ?(N) ?? 16 ?cm^2 ? 10 - 18 Vol, ES, 1-p A4C ? 40 ?ml ? Vol/bsa, ES, 1-p A4C ?? (N) ?? 21 ?ml/m^2 ?? 9 - 33 Aortic valve ? Value ?Ref Peak v, S ?1.1 ?? m/sec ? VTI, S ? 20.2 ??cm ? Mean grad, S ? 2 ? mm Hg ? Peak grad, S ? 5 ? mm Hg ? LVOT/AV, VTI ratio ? 0.93 ? DELANEY, VTI ? 2.9 ?? cm^2 ? DELANEY/bsa, VTI ? 1.53 ??cm^2/m^2 Mitral valve ? Value ?Ref Peak E ? 0.75 ??m/sec ? Peak A ? 0.52 ??m/sec ? Decel time ? 177 ?? ms ? Peak E/A ratio ? 1.4 ? Pulmonic valve ? Value ?Ref Peak v, S ?0.94 ??m/sec ? Mean grad, S ? 2 ? mm Hg ? Peak grad, S ? 4 ? mm Hg ? Aortic root ?Value ?Ref Root diam, S ? 2.9 ?? cm ? -- -- Legend: (L) ??and ??(H) ??castro values outside specified reference range. (N) ??chavez values inside specified reference range. Procedure data: Procedure information: ??Transthoracic echocardiography. Scanning was performed from the parasternal, apical, and subcostal acoustic windows. Transthoracic echocardiography. ??Complete 2D, complete spectral Doppler, and color Doppler. ??Birthdate: ??Patient birthdate: 1975. ??Age: ??Patient is 45yr old. ??Sex: ?? gender: female. ??Height: ??165.1cm. 65in. ??Weight: 83.5kg. 183.6lb. ??Body mass index: ??30.6kg/m^2. ??Body surface area: 1.91m^2. ??Study date: ??Study date: 08/25/2021. Study time: 07:20 AM. Prepared and Electronically Authenticated Miguel Lewis [id number] Procedure Note Miguel Lewis MD - 08/25/2021 -- [place] [address] [email or web address] [email or web address] mary[email or web address] -- Transthoracic Echocardiography -- Patient: Linda Doss Study ID: ECHO COMPLETE Gender: F : 1975 Age: 45 Race: CAU Height 165.1cm Study Date: 08/25/2021 Weight: 83.5kg Access. #: [id number] BP: -- -- *Referring Physician:* Chin Maurice *Ordering Physician:* Chin Maurice Satellite Specialist: nuclear power reactor operator: Nurse: -- Indications: Chest pain. SOB / HENDRIX. STUDY CONCLUSIONS: SUMMARY: -- - Left ventricle: The cavity size was normal. Wall thickness was normal. Global systolic function was normal. Left ventricular diastolicfunction parameters were normal. The ejection fraction (2-plane MOD) is 63%. - Mitral valve: Mild regurgitation. - Left atrium: The atrium was normal in size. - Right ventricle: The cavity size was normal. Systolic function wasnormal. - Pulmonary arteries: Systolic pressure could not be estimated. - Pericardium: There was no pericardial effusion. -- Cardiac Anatomy: LEFT VENTRICLE: The cavity size was normal. Wall thickness was normal.Global systolic function was normal. Left ventricular diastolic functionparameters were normal. AORTIC VALVE: Structurally normal valve. Trileaflet. Doppler: No significant regurgitation. The LVOT to aortic valve VTI ratio is 0.93.The valve area by the velocity-time integral method is 2.9cm^2. The valvearea index by the velocity-time integral method is 1.53cm^2/m^2. The ratio ofLVOT to aortic valve peak velocity is 0.84. The valve area by the peakvelocity method is 2.6cm^2. The valve area index by the peak velocity method is 1.38cm^2/m^2. The mean systolic gradient is 2mm Hg. The peak systolic gradient is 5mm Hg. AORTA: Aortic root: The aortic root was normal in size. MITRAL VALVE: Structurally normal valve. Doppler: Mildregurgitation. The peak diastolic gradient is 2mm Hg. LEFT ATRIUM: The atrium was normal in size. RIGHT VENTRICLE: The cavity size was normal. Systolic function wasnormal. PULMONIC VALVE: Not well visualized. Structurally normal valve.Doppler: No significant regurgitation. The mean systolic gradient is 2mm Hg. Thepeak systolic gradient is 4mm Hg. TRICUSPID VALVE: Structurally normal valve. Doppler: Nosignificant regurgitation. PULMONARY ARTERY: Systolic pressure could not be estimated. RIGHT ATRIUM: The atrium was normal in size. Prominant eustachianvalve. PERICARDIUM: There was no pericardial effusion. Systemic veins: Inferior vena cava: The vessel was normal in size. Measurements -- -- Left ventricle Value Ref SV 59 ml SV/bsa 31 ml/m^2 EDV, 2-p (N) 71 ml 46 - 106 ESV, 2-p (N) 27 ml 14 - 42 EF, 2-p (N) 63 % 54 - 74 SV, 2-p 45 ml EDV/bsa, 2-p (N) 37 ml/m^2 29 - 61 ESV/bsa, 2-p (N) 14 ml/m^2 8 - 24 SV/bsa, 2-p 23.4 ml/m^2 E', lat juancho, TDI (N) 10.7 cm/sec >=10.0 E/e', lat juancho, TDI 7 E', med juancho, TDI (N) 8.2 cm/sec >=7.0 E/e', med juancho, TDI 9 E', avg, TDI 9.4 cm/sec E/e', avg, TDI (N) 8 <=14 LVOT Value Ref Diam, S 2.0 cm Area 3.1 cm^2 Peak vick, S 0.91 m/sec VTI, S 18.8 cm Right ventricle Value Ref PERICO minor ax, A4C base (N) 3.4 cm 2.5 - 4.1 TAPSE, MM (N) 2.2 cm 1.7 - 3.1 S' lateral (N) 11.2 cm/sec 6.0 - 13.4 RVOT Value Ref Peak grad, S 2 mm Hg Left atrium Value Ref AP dim, ES (N) 3.4 cm 2.7 - 3.8 AP dim index (N) 1.8 cm/m^2 1.5 - 2.3 Vol, ES, 2-p 57 ml Vol/bsa, ES, 2-p (N) 30 ml/m^2 16 - 34 Right atrium Value Ref Area, ES, A4C (N) 16 cm^2 10 - 18 Vol, ES, 1-p A4C 40 ml Vol/bsa, ES, 1-p A4C (N) 21 ml/m^2 9 - 33 Aortic valve Value Ref Peak v, S 1.1 m/sec VTI, S 20.2 cm Mean grad, S 2 mm Hg Peak grad, S 5 mm Hg LVOT/AV, VTI ratio 0.93 DELANEY, VTI 2.9 cm^2 DELANEY/bsa, VTI 1.53 cm^2/m^2 Mitral valve Value Ref Peak E 0.75 m/sec Peak A 0.52 m/sec Decel time 177 ms Peak E/A ratio 1.4 Pulmonic valve Value Ref Peak v, S 0.94 m/sec Mean grad, S 2 mm Hg Peak grad, S 4 mm Hg Aortic root Value Ref Root diam, S 2.9 cm -- -- Legend: (L) and (H) castro values outside specified reference range. (N) chavez values inside specified reference range. Procedure data: Procedure information: Transthoracic echocardiography. Scanning wasperformed from the parasternal, apical, and subcostal acoustic windows. Transthoracic echocardiography. Complete 2D, complete spectral Doppler,and color Doppler. Birthdate: Patient birthdate: 1975. Age: Patientis 45yr old. Sex: gender: female. Height: 165.1cm. 65in. Weight: 83.5kg. 183.6lb. Body mass index: 30.6kg/m^2. Body surface area: 1.91m^2. Study date: Study date: 08/25/2021. Study time: 07:20 AM. Prepared and Electronically Authenticated Miguel Lewis [id number] Chin Henderson Sergo DO LEO ORDERABLES INTERFACE SYSTEM Refer to clinic/hospital department * (ABNORMAL) LIPID PANEL (08/25/2021 4:23 AM CDT) [facility] CHOLESTEROL 297(H) <200 mg/dL 08/25/2021 5:18 AM [facility] [employer] [facility] TRIGLYCERIDE 2,738(H) <150 mg/dL 08/25/2021 5:18 AM [facility] [employer] [facility] HDL 08/25/2021 5:18 AM [facility] [employer] [facility] Comment:Measured HDL is not accurate when the Triglyceride value exceeds 1200. LDL CALCULATED 08/25/2021 5:18 AM [facility] [employer] [facility] Comment:Calculated LDL is no t accurate when the Triglyceride value exceeds 400. NON-HDL CHOLESTEROL 08/25/2021 5:18 AM [facility] [employer] [facility] Comment:Non HDL Cholesterol cannot be calculated when the HDL value is suppressed. Blood Venipuncture / Unknown 08/25/2021 4:23 AM T 08/25/2021 4:28 AM T [facility] [employer] [facility] - 08/25/2021 5:18 AM CDT TOTAL CHOLESTEROL ??mg/dL ??Desirable <200 ??Borderline high 200-239 ??High >=240 TRIGLYCERIDES ??mg/dL ??Normal <150 ??Borderline high 150-199 ??High 200-499 ??Very high >=500 HDL CHOLESTEROL ??mg/dL ??Low <40 ??Normal 40-59 ??Desirable >=60 NON HDL CHOLESTEROL mg/dL ??Optimal <130 ??Near Optimal 130-159 ??Borderline High 160-189 ??Very High >=190 CALCULATED LDL mg/dL ??LDL <70, OPTIMAL if have Atherosclerotic cardiovascular disease (ASCVD) ??or intermediate or higher (>7.5%) 10 year risk of ASCVD including most adults ??with diabetes. ??LDL <100, Optimal in adult patients with low (<7.5%) 10 year ASCVD risk ??LDL 100-160, Suboptimal ??LDL >160, High ??LDL >190, Very high ATPIII Guidelines Reference Ranges for Lipid Panels (NCEP/AMA) . Chin Maurice DO CHEMISTRY ORDE MAGGIE [facility] LABORATORY SERVICES - [facility] KARLEE# [id number] [address] [place] [address] * (ABNORMAL) BASIC METABOLIC PANEL (08/25/2021 4:23 AM CDT) SODIUM 133(L) 136 - 145 mmol/L 08/25/2021 5:00 AM [facility] LABORATORY SERVICES - . [facility] POTASSIUM 4.2 3.5 - 5.0 mmol/L 08/25/2021 5:00 AM [facility] LABOR[facility]ORY [facility] - . [facility] CHLORIDE 97(L) 98 - 107 mmol/L 08/25/2021 5:00 AM [facility] LABORATORY [facility] - . [facility] CO2 19(L) 22 - 29 mmol/L 08/25/2021 5:00 AM [facility] LABORATORY [facility] CALCIUM 8.9 8.6 - 10.2 mg/dL 08/25/2021 5:00 AM [facility] [employer] [facility] - . [facility] BUN 10 6 - 20 mg/dL 08/25/2021 5:00 AM [facility] [employer] [facility] CREATININE 0.57 0.51 - 0.95 mg/dL 08/25/2021 5:00 AM [facility] GLUCOSE 308(H) 74 - 99 mg/dL 08/25/2021 5:00 AM [facility] [employer] [facility] GFR >60 >=60 mL/min/1. 73 sq meter 08/25/2021 5:00 AM [facility] LABORATORY [facility] Comment: eGFR calculated with 2020 CKD-EPI equation. ??Vegetarian diet, extremely high or low muscle mass, and may affect results. ??Cystatin C with Glomerular Filtration Rate is a suitable alternative for these patients. The National Kidney Foundation and the [place] Society of Nephrology (NKF-ASN) recommends using the 2020 CKD Epidemiology Collaboration (CKD-EPI) equation to calculate estimated glomerular filtration rate (eGFR). This equation is only applicable to [place] adult patients and removes race as a variable. ??Due to the variation of creatinine in different conditions, they recommend use of confirmatory tests such as eGFR from cystatin C or creatinine-cystatin GFR estimating equations, or direct measurement of clearance of an exogenous filtration marker in critical clinical decisions including but not limited to drug dosing, surgery, chemotherapy, and transplant referral. ANION GAP 17(H) 8 - 16 mmol/L 08/25/2021 5:00 AM [facility] [employer] LABORATORY SERVICES - [facility] Blood Venipuncture / Unknown 08/25/2021 4:23 AM CDT 08/25/2021 4:28 AM CDT Chin Maurice DO CHEMISTRY ORDE MAGGIE [facility] [employer] SERVICES [facility] CLIA# [id number] [address] [facility] [address] [facility] [place] [address] * (ABNORMAL) CBC WITH DIFFERENTIAL (08/25/2021 4:23 AM CDT) WBC 16.4(H) 4.0 - 9.8 K/uL 08/25/2021 4:38 AM [facility] [employer] LABORATORY SERVICES - [facility] RBC 3.61(L) 3.90 - 4.90 M/uL 08/25/2021 4:38 AM [facility] LABORATORY SERVICES [facility] HEMOGLOBIN 11.4(L) 11.8 - 14.8 g/dL 08/25/2021 4:38 AM [facility] LABORATORY SERVICES [facility] HEMATOCRIT 32.7(L) 35.5 - 44.0 % 08/25/2021 4:38 AM [facility] [employer] LABORATORY SERVICES - [facility] MCV 90.6 82.0 - 99.0 fL 08/25/2021 4:38 AM T [employer] SERVICES - [facility] MCH 31.6 27.2 - 32.6 pg 08/25/2021 4:38 AM T [employer] SERVICES - [facility] MCHC 34.9 31.5 - 35.5 g/dL 08/25/2021 4:38 AM [facility] RDW 16.3(H) 11.5 - 14.5 % 08/25/2021 4:38 AM [facility] [employer] LABORATORY SERVICES - [facility] RDW-STDEV 54.7(H) 37.1 - 48.7 fL 08/25/2021 4:38 AM CDT [employer] LABORATORY SERVICES - . [facility] PLATELETS 313 140 - 350 K/uL 08/25/2021 4:38 AM CDT [employer] [facility]ATORY SERVICES - [facility] MPV 9.6 9.3 - 12.4 fL 08/25/2021 4:38 AM [employer] LABORATORY SERVICES - . [facility] NEUTROPHILS 81 % 08/25/2021 4:38 AM CDT [employer] LABORATORY SERVICES - . [facility] LYMPHOCYTES 13 % 08/25/2021 4:38 AM CDT [employer] LABORATORY SERVICES - [facility] MONOCYTES 4 % 08/25/2021 4:38 AM CDT [employer] LABORATORY SERVICES - [facility] EOSINOPHILS 0 % 08/25/2021 4:38 AM [employer] LABORATORY SERVICES - [facility] BASOPHILS 0 % 08/25/2021 4:38 AM [employer] LABORATORY SERVICES - . [facility] IMMATURE GRANULOCYTES 2 % 08/25/2021 4:38 AM [employer] LABORATORY SERVICES - . [facility] Comment:IG (Immature Granulo cyte) count includes Metamyelocytes, Myelocytes, and Promyelocytes NEUTROPHIL ABSOLUTE 13.25(H) 1.90 - 7.00 K/uL 08/25/2021 4:38 AM CDT [employer] LABORATORY SERVICES - [facility] LYMPHOCYTE ABSOLUTE 2.13 0.70 - 4.50 K/uL 08/25/2021 4:38 AM [employer] LABORATORY SERVICES - [facility] MONOCYTE ABSOLUTE 0.66 0.10 - 1.30 K/uL 08/25/2021 4:38 AM [employer] LABORATORY SERVICES - [facility] EOSINOPHIL ABSOLUTE 0.02 0.00 - 0.70 K/uL 08/25/2021 4:38 AM [employer] LABORATORY SERVICES - [facility] BASOPHILS ABSOLUTE 0.04 0.00 - 0.20 K/uL 08/25/2021 4:38 AM [employer] LABORATORY SERVICES - . [facility] IMMATURE GRANULOCYTES ABSOLUTE 0.28(H) 0.00 - 0.03 K/uL 08/25/2021 4:38 AM [employer] LABORATORY SERVICES - [facility] Blood Venipuncture / Unknown 08/25/2021 4:23 AM CDT 08/25/2021 4:28 AM CDT Chin Maurice DO HEMATOLOGY ORD ERABLES Performing Organization Address [facility]/ZIP Co de Phone Number [facility] [employer] [facility]# [id number] [address] [place] [address] * (ABNORMAL) POC GLUCOSE (08/25/2021 2:05 AM CDT) GLUCOSE POC 326(H) 74 - 99 mg/dL 08/25/2021 2:05 AM CDT [facility] - [facility] SPECIMEN SOURCE, GLUCOSE POC Whole Blood 08/25/2021 2:05 AM CDT [employer] LABORATORY SERVICES - [facility] COMMENT, GLU POC Notified RN/MD 08/25/2021 2:05 AM CDT [facility] Blood, whole 08/25/2021 2:05 AM CDT 08/25/2021 2:12 AM CDT Chin Maurice POINT OF CARE TESTING Performing Organization Address [facility] Co de Phone Number [facility] [employer] [facility]# [phone] [address] [place] [address] * (ABNORMAL) POC GLUCOSE (08/24/2021 9:34 PM CDT) GLUCOSE POC 430(HH) 74 - 99 mg/dL 08/24/2021 9:34 PM CDT [facility] SPECIMEN SOURCE, GLUCOSE POC Whole Blood 08/24/2021 9:34 PM CDT [employer] LABORATORY SERVICES [facility] COMMENT, GLU POC Notified RN/MD 08/24/2021 9:34 PM CDT [facility] Blood, whole 08/24/2021 9:34 PM CDT 08/24/2021 9:56 PM CDT Chin Maurice POINT OF CARE TESTING Performing Organization Address City/[facility]/ZIP Co de Phone Number [facility] Array [facility]# [id number] [address] [place] [address] * (ABNORMAL) POC GLUCOSE (08/24/2021 4:04 PM CDT) GLUCOSE POC 341(H) 74 - 99 mg/dL 08/24/2021 4:04 PM CDT [facility] LABORATORY SERVICES - [facility] SPECIMEN SOURCE, GLUCOSE POC Whole Blood 08/24/2021 4:04 PM CDT [facility] LABORATORY SERVICES [facility] Blood, whole 08/24/2021 4:04 PM CDT 08/25/2021 6:48 AM CDT Chin Maurice DO POINT OF CARE TESTING Performing Organization Address [facility] Co de Phone Number [facility]# [id number] [address] [place] [address] * (ABNORMAL) HEMOGLOBIN A1C (08/24/2021 12:21 PM CDT) HEMOGLOBIN A1C 8.9(H) <5.7 % 08/24/2021 3:39 PM CDT [facility] LABORATORY SERVICES - [facility] EST. AVG GLUCOSE, A1C 209 mg/dL 08/24/2021 3:39 PM CDT [facility] LABORATORY SERVICES [facility] Blood Venipuncture / Unknown 08/24/2021 12:21 PM CDT 08/24/2021 12:39 PM CDT Narrative [facility] LABORATORY SERVICES - [facility] - 08/24/2021 3:39 PM CDT HGB A1C INTERPRETATION NORMAL: ? <5.7% PRE-DIABETES: 5.7 - 6.4% DIABETES: ? 6.5% OR GREATER Chin Maurice DO CHEMISTRY ORDE RABLES Performing Organization Address [facility]/ZIP Co de Phone Number [facility] [id number] [address] [place] [address] * (ABNORMAL) CBC WITH DIFFERENTIAL (08/24/2021 12:21 PM CDT) [facility] WBC 12.1(H) 4.0 - 9.8 K/uL 08/24/2021 12:51 PM CDT [facility] RBC 4.10 3.90 - 4.90 M/uL 08/24/2021 12:51 PM CDT [facility] HEMOGLOBIN 13.6 11.8 - 14.8 g/dL 08/24/2021 12:51 PM CDT [facility] HEMATOCRIT 37.8 35.5 - 44.0 % 08/24/2021 12:51 PM CDT [facility] MCV 92.2 82.0 - 99.0 fL 08/24/2021 12:51 PM CDT [facility] MCH 33.2(H) 27.2 - 32.6 pg 08/24/2021 12:51 PM CDT [facility] MCHC 36.0(H) 31.5 - 35.5 g/dL 08/24/2021 12:51 PM CDT [facility] RDW 16.4(H) 11.5 - 14.5 % 08/24/2021 12:51 PM CDT [facility] RDW-STDEV 55.7(H) 37.1 - 48.7 fL 08/24/2021 12:51 PM CDT [facility] PLATELETS 353(H) 140 - 350 K/uL 08/24/2021 12:51 PM CDT [facility] MPV 9.5 9.3 - 12.4 fL 08/24/2021 12:51 PM CDT [facility] NEUTROPHILS 76 % 08/24/2021 12:51 PM CDT [facility] LYMPHOCYTES 18 % 08/24/2021 12:51 PM CDT [facility] MONOCYTES 4 % 08/24/2021 12:51 PM CDT [facility] EOSINOPHILS 0 % 08/24/2021 12:51 PM CDT [facility] LAB[facility] BASOPHILS 0 % 08/24/2021 12:51 PM CDT [facility] IMMATURE GRANULOCYTES 2 % 08/24/2021 12:51 PM CDT [facility] Comment:IG (Immature Granulo cyte) count includes Metamyelocytes, Myelocytes, and Promyelocytes NEUTROPHIL ABSOLUTE 9.14(H) 1.90 - 7.00 K/uL 08/24/2021 12:51 PM CDT [facility] LYMPHOCYTE ABSOLUTE 2.22 0.70 - 4.50 K/uL 08/24/2021 12:51 PM CDT [facility] LABORATORY [facility] MONOCYTE ABSOLUTE 0.43 0.10 - 1.30 K/uL 08/24/2021 12:51 PM CDT [facility] LABORATORY [facility] EOSINOPHIL ABSOLUTE 0.02 0.00 - 0.70 K/uL 08/24/2021 12:51 PM CDT [facility] LABORATORY [facility] BASOPHILS ABSOLUTE 0.03 0.00 - 0.20 K/uL 08/24/2021 12:51 PM CDT [facility] LAB[facility]ATORY [facility] IMMATURE GRANULOCYTES ABSOLUTE 0.23(H) 0.00 - 0.03 K/uL 08/24/2021 12:51 PM CDT [facility] Blood Venipuncture / Unknown 08/24/2021 12:21 PM CDT 08/24/2021 12:39 PM CDT Yaakov Kern MD HEMATOLOG Y ORDERABLES [facility] CLIA# [id number] [address] [facility] [address] [place] [address] * XR CHEST PA OR AP 1 VW (08/24/2021 10:51 AM CDT) Anatomical Region Laterality Modality Chest Computed Radiogr aphy 08/24/2021 10:5 1 AM CDT Impressions 08/24/2021 11:41 AM CDT IMPRESSION: No convincing evidence of active disease. ?? DICTATION LOCATION: Location 1 - [facility] Narrative 08/24/2021 11:41 AM CDT PORTABLE AP VIEW OF THE CHEST ?? DATE: 08/24/2021 10:51 AM HISTORY: Shortness of Breath SOB. COMPARISON: 05/17/2018 FINDINGS: ?? Lung volumes are small. Lungs are clear. No pneumothorax. No pleural effusion. The cardiac and mediastinal silhouettes are normal. Bilateral port type central venous catheters terminate near the superior cavoatrial junction. Procedure Note Ligia Patel MD - 08/24/2021 PORTABLE AP VIEW OF THE CHEST DATE: 08/24/2021 10:51 AM HISTORY: Shortness of Breath SOB. COMPARISON: 05/17/2018 FINDINGS: Lung volumes are small. Lungs are clear. No pneumothorax. No pleural effusion. The cardiac and mediastinal silhouettes are normal. Bilateral port type central venous catheters terminate near the superior cavoatrial junction. IMPRESSION: No convincing evidence of active disease. DICTATION LOCATION: Location 1 - [facility] Yaakov Kern MD DIAGNOSTI C IMAGING ORDERABLES * EKG 12-LEAD (08/24/2021 10:30 AM CDT) 08/24/2021 10:3 0 AM CDT Narrative INTERFACE SYSTEM - 08/24/2021 3:07 PM CDT ? Stationary ECG Study ? [facility] ? Test Date: ?08/24/2021 10:30 AM Pat Name: ? LINDA FEDDER ?Department: ?? 40 ?Room: ? 7315 Gender: ? F ?Electronic Health Records Specialist: ? : ?[id number] ? Requested By: YAAKOV BLACK Order Number: [id number] ?Reading MD: ?? Misha Wiele ? Measurements Intervals ?[place] ? Rate: ? 108 ?P: ?76 MI: ? 162 ?QRS: ?81 QRSD: ? 87 ? T: ?-41 QT: ? 341 ? QTc: ?457 ? Interpretive Statements ? Sinus tachycardia Consider left atrial enlargement Low voltage, precordial leads Nonspecific T abnormalities, inferior leads Electronically Signed On 08-24-2021 15:07:04 CDT by Misha Navarro Procedure Note Provider, Historical - 08/24/2021 Stationary ECG Study [facility] Test Date: 08/24/2021 10:30 AM Pat Name: LINDA DOSS Department: 40 Room: [facility] Gender: F Electronic Health Records Specialist: : 1975 Requested By: YAAKOV BLACK Order Number: [id number] Reading MD: Misha Navarro Measurements Intervals [place] Rate: 108 P: 76 MI: 162 QRS: 81 QRSD: 87 T: -41 QT: 341 QTc: 457 Interpretive Statements Sinus tachycardia Consider left atrial enlargement Low voltage, precordial leads Nonspecific T abnormalities, inferior leads Electronically Signed On 08-24-2021 15:07:04 CDT by Misha Navarro Yaakov Kern MD ECG ORDER [facility] INTERFACE SYSTEM Refer to clinic/hospital department * Critical Care (08/24/2021 10:24 AM CDT) Narrative Yaakov Kern MD - 08/24/2021 10:24 AM CDT Yaakov Kern MD ? 08/24/2021 ??3:24 PM Critical Care Performed by: Yaakov Kern MD Authorized by: Yaakov Kern MD Critical care provider statement: ??Critical care time (minutes): ??35 ??Critical care time was exclusive of: ??Separately billable procedures and treating other patients ??Critical care was necessary to treat or prevent imminent or life-threatening deterioration of the following conditions: allergic reaction requiring epinephrine. ??Critical care was time spent personally by me on the following activities: ??Development of treatment plan with patient or surrogate, discussions with consultants, evaluation of patient's response to treatment, examination of patient, obtaining history from patient or surrogate, ordering and performing treatments and interventions, pulse oximetry, re-evaluation of patient's condition, review of old charts, ordering and review of laboratory studies and ordering and review of radiographic studies Yaakov Kern MD PROCEDURE /MINOR SURGICAL ORDERABLES * (ABNORMAL) BASIC METABOLIC PANEL (08/24/2021 9:46 AM CDT) [facility] SODIUM 130(L) 136 - 145 mmol/L 08/24/2021 12:18 PM CDT [employer] LABORATORY SERVICES [facility] POTASSIUM 4.0 3.5 - 5.0 mmol/L 08/24/2021 12:18 PM T [employer] LABORATORY SERVICES [facility] CHLORIDE 93(L) 98 - 107 mmol/L 08/24/2021 12:18 PM T [employer] LABORATORY SERVICES [facility] CO2 17(L) 22 - 29 mmol/L 08/24/2021 12:18 PM T [employer] LABORATORY SERVICES [facility] CALCIUM 8.7 8.6 - 10.2 mg/dL 08/24/2021 12:18 PM T [employer] LABORATORY SERVICES [facility] Comment:Cleared of chylomicr ons. BUN 9 6 - 20 mg/dL 08/24/2021 12:18 PM T [employer] LABORATORY SERVICES [facility] Comment:Cleared of chylomicr ons. CREATININE 0.26(L) 0.51 - 0.95 mg/dL 08/24/2021 12:18 PM T [facility] LABORATORY SERVICES [facility] GLUCOSE 314(H) 74 - 99 mg/dL 08/24/2021 12:18 PM T [employer] LABORATORY SERVICES [facility] Comment:Cleared of chylomicr ons. GFR >60 >=60 mL/min/1. 73 sq meter 08/24/2021 12:18 PM CDT [facility] [employer] [facility] Comment: eGFR calculated with 2020 CKD-EPI equation. ??Vegetarian diet, extremely high or low muscle mass, and may affect results. ??Cystatin C with Glomerular Filtration Rate is a suitable alternative for these patients. The National Kidney Foundation and the [place] Society of Nephrology (NKF-ASN) recommends using the 2020 CKD Epidemiology Collaboration (CKD-EPI) equation to calculate estimated glomerular filtration rate (eGFR). This equation is only applicable to [place] adult patients and removes race as a variable. ??Due to the variation of creatinine in different conditions, they recommend use of confirmatory tests such as eGFR from cystatin C or creatinine-cystatin GFR estimating equations, or direct measurement of clearance of an exogenous filtration marker in critical clinical decisions including but not limited to drug dosing, surgery, chemotherapy, and transplant referral. ANION GAP 20(H) 8 - 16 mmol/L 08/24/2021 12:18 PM CDT [facility] [employer] [facility] Blood Collection / Unknown 08/24/2021 9:46 AM CDT 08/24/2021 9:49 AM CDT Yaakov Kern MD CHEMISTRY ORDERABLES [facility] [id number] [address] [facility] [place] [address] * TROPONIN BASELINE, 5TH GEN (08/24/2021 9:46 AM CDT) TROPONIN T, BASELINE 5TH GEN <6 <=10 ng/L 08/24/2021 11:26 AM CDT [facility] [employer] [facility] Blood Collection / Unknown 08/24/2021 9:46 AM CDT 08/24/2021 9:49 AM CDT Narrative [facility] [employer] [facility] - 08/24/2021 11:26 AM CDT Troponin Undetectable Yaakov Kern MD CHEMISTRY ORDERABLES [facility]# [id number] [address] [place] [address] documented in this encounter Visit Diagnoses Diagnosis Allergic reaction caused by a drug- Primary Other drug allergy Chest pain, unspecified type Allergic reaction, initial encounter Hypertriglyceridemia Pure hyperglyceridemia Acquired hypothyroidism Unspecified hypothyroidism Chronic pancreatitis Chylomicronemia syndrome Hyperchylomicronemia Depression with anxiety Dysthymic disorder Family history of early CAD Family history of ischemic heart disease GERD (gastroesophageal reflux disease) Esophageal reflux History of pancreatitis Personal history of other diseases of digestive system History of plasmapheresis Hypertriglyceridemia Pure hyperglyceridemia Hypothyroidism Unspecified hypothyroidism Metabolic syndrome Dysmetabolic Syndrome X Mixed hyperlipidemia Type 2 diabetes mellitus without complication, with long-term current use of insulin Precordial pain documented in this encounter Administered Medications Inactive Administered Medications - up to 3 most recent administrations Medication Order MAR Action Action Date Dose Rate Site acetaminophen (TYLENOL) tablet 650 mg 650 mg, Oral, EVERY 6 HOURS PRN, Starting on Katie 08/24/21 at 1643, Until 08/26/21 at 1558, Pain, Mild / Temperature, T>100F, Routine Given 08/25/2021 11:53 PM CDT 650 mg Given 08/24/2021 5:38 PM CDT 650 mg atorvastatin (LIPITOR) tablet 80 mg 80 mg, Oral, DAILY AT BEDTIME, First dose on Katie 08/24/21 at 2100, Until Discontinued, Routine Given 08/25/2021 10:25 PM CDT 80 mg Given 08/24/2021 9:13 PM CDT 80 mg buPROPion HCL (WELLBUTRIN SR) 12 hour tablet 150 mg 150 mg, Oral, TWO TIMES DAILY, First dose on Katie 08/24/21 at 2100, Until Discontinued, Routine Given 08/26/2021 10:26 AM CDT 150 mg Given 08/25/2021 10:25 PM CDT 150 mg Given 08/25/2021 9:24 AM CDT 150 mg calcium GLUCONATE 2,000 mg in sodium chloride (iso-osmotic) 100 mL IVPB 2,000 mg, IV, PRE-PROCEDURE ONCE, 1 dose, Starting on 08/26/21 at 0800, Until 08/26/21 at 0954, Routine New Bag 08/26/2021 8:51 AM CDT 2,000 mg 100 mL /hr citalopram (CeleXA) tablet 40 mg 40 mg, Oral, DAILY, First dose on Sat08/25/21 at 0900, Until Discontinued, Routine Given 08/26/2021 10:25 AM CDT 40 mg Given 08/25/2021 9:24 AM CDT 40 mg diphenhydrAMINE (BENADRYL) injection 25 mg 25 mg, IV, ONE TIME ONLY, 1 dose, On Sat08/24/21 at 1045, Routine Given 08/24/2021 10:45 AM CDT 25 mg diphenhydrAMINE (BENADRYL) injection 25 mg 25 mg, IV, ONE TIME PRN, 1 dose, Starting on Sat08/24/21 at 2230, Until Sat08/24/21 at 2230, Itching, Routine Given 08/24/2021 10:30 PM CDT 25 mg diphenhydrAMINE (BENADRYL) tablet 25 mg 25 mg, Oral, EVERY 6 HOURS PRN, Starting on Sat08/24/21 at 1504, Until Sat08/26/21 at 1558, Itching, Routine Given 08/26/2021 11:41 AM CDT 25 mg Given 08/26/2021 1:58 AM CDT 25 mg Given 08/25/2021 5:40 PM CDT 25 mg enoxaparin (LOVENOX) injection 40 mg 40 mg, subCUT, EVERY 24 HOURS, First dose on Sat08/24/21 at 1600, Until Discontinued, Routine, Indication: Prophylaxis of VTE Given 08/25/2021 5:36 PM CDT 40 mg Abdominal Tissue Given 08/24/2021 4:30 PM CDT 40 mg Ab domen, Left Lower Quadrant EPINEPHRINE 1 MG/ML (1 ML) INJECTION SOLUTION (CABINET OVERRIDE) 1 dose, Starting on Sat08/24/21 at 1031, Until Sat08/24/21 at 1045, Cameron Mohan Molly: cabinet override Given 08/24/2021 10:45 AM CDT 0.4 mg famotidine (PEPCID) tablet 20 mg 20 mg, Oral, TWO TIMES DAILY, First dose on Sat08/24/21 at 2100, Until Discontinued, Routine Given 08/26/2021 10:26 AM CDT 20 mg Given 08/25/2021 10:32 PM CDT 20 mg Given 08/25/2021 9:24 AM CDT 20 mg famotidine PF (PEPCID) 20 mg/2 mL injection 20 mg 20 mg, IV, ONE TIME ONLY, 1 dose, On Katie 08/24/21 at 1045, Routine Given 08/24/2021 10:45 AM CDT 20 mg fenofibrate (LOFIBRA) tablet 160 mg 160 mg, Oral, DAILY, First dose on Sat08/25/21 at 0900, Until Discontinued, Routine Given 08/26/2021 10:2 5 AM CDT 160 mg Given 08/25/2021 9:24 AM CDT 160 mg heparin, porcine (pf) 10 unit/mL IV syringe 20 Units 20 Units, IV, ONE TIME ONLY, 1 dose, On 08/26/21 at 0800, Stat Given 08/26/2021 9:53 AM CDT 20 Units heparin, porcine lock flush (pf) 100 unit/mL injection 500 Units 500 Units, IV, ONE TIME ONLY, 1 dose, On 08/26/21 at 0800, Stat Given 08/26/2021 9:53 AM CDT 500 Units heparin, porcine lock flush (pf) 100 unit/mL injection 500 Units 500 Units, IV, ONE TIME ONLY, 1 dose, On 08/26/21 at 0800, Stat Given 08/26/2021 9:53 AM CDT 500 Units HYDROcodone-acetaminophen (NORCO) 5-325 mg per tablet 1 Tablet 1 Tablet, Oral, EVERY 4 HOURS PRN, Starting on 08/26/21 at 0259, Until 08/26/21 at 1558, Pain, Break-Through, Pain, Severe, Routine Given 08/26/2021 10:25 AM CDT 1 Tablet Given 08/26/2021 3:24 AM CDT 1 Tablet insulin glargine-yfgn injection 35 Units 35 Units, subCUT, TWO TIMES DAILY, First dose on Katie 08/24/21 at 2100, Until Discontinued, Routine Given 08/26/2021 11:24 AM CDT 35 Units Arm, Right Given 08/25/2021 11:46 PM CDT 35 Units A rm, Right Given 08/25/2021 9:26 AM CDT 35 Units Ab dominal Tissue insulin lispro (HumaLOG) injection 0-3 Units 0-3 Units, subCUT, DAILY AT BEDTIME, First dose on Sat08/24/21 at 2100, Until Discontinued, Routine Given 08/25/2021 11:45 PM CDT 3 Units Arm, Right Given 08/24/2021 9:46 PM CDT 3 Units Ar m, Left insulin lispro (HumaLOG) injection 0-4 Units 0-4 Units, subCUT, THREE TIMES DAILY WITH MEALS, First dose on Sat08/24/21 at 1700, Until Discontinued, Routine Given 08/25/2021 6:53 PM CDT 4 Units Abdominal Tissue Given 08/25/2021 2:42 PM CDT 4 Units Ab dominal Tissue Given 08/25/2021 9:25 AM CDT 3 Units Ab dominal Tissue insulin lispro (HumaLOG) injection 3 Units 3 Units, subCUT, ONE TIME ONLY, 1 dose, On Sat08/25/21 at 0215, Routine Given 08/25/2021 2:13 AM CDT 3 Units A rm, Left insulin lispro (HumaLOG) injection 5 Units 5 Units, subCUT, THREE TIMES DAILY WITH MEALS, First dose on Sat08/24/21 at 1700, Until Discontinued, Routine Given 08/25/2021 6:52 PM CDT 5 Units Abdominal Tissue Given 08/25/2021 2:42 PM CDT 5 Units An kle, Left Given 08/25/2021 9:25 AM CDT 5 Units Ab dominal Tissue ketorolac (TORADOL) injection 10 mg 10 mg, IV, ONE TIME ONLY, 1 dose, On Sat08/26/21 at 0130, Routine Given 08/26/2021 1:50 AM CDT 10 mg levothyroxine (SYNTHROID) tablet 200 mcg 200 mcg, Oral, DAILY EARLY, First dose on Sat08/25/21 at 0600, Until Discontinued, Routine Given 08/26/2021 6:50 AM CDT 200 mcg Given 08/25/2021 5:18 AM CDT 200 mcg LORazepam (ATIVAN) tablet 1 mg 1 mg, Oral, TWO TIMES DAILY PRN, Starting on Sat08/24/21 at 1504, Until Sat08/26/21 at 1558, Anxiety, Routine Given 08/25/2021 10:32 PM CDT 1 mg Given 08/25/2021 9:25 AM CDT 1 mg Given 08/24/2021 4:30 PM CDT 1 mg methylPREDNISolone sodium succinate (SOLU-Medrol) 125 mg in water sterile 2 mL injection 125 mg, IV, ONE TIME ONLY, 1 dose, On Katie 08/24/21 at 1045, Routine Given 08/24/2021 10:45 AM CDT 125 mg naloxone (NARCAN) 0.4 mg/mL injection 0.1 mg 0.1 mg, IV, SEE ADMIN INSTRUCTIONS, Starting on 08/26/21 at 0259, Until 08/26/21 at 1558, Routine omega-3 acid ethyl esters (LOVAZA) capsule 2 Gram 2 Gram, Oral, TWO TIMES DAILY WITH MEALS, First dose on Sat08/24/21 at 1700, Until Discontinued, Routine Given 08/26/2021 10:25 AM CDT 2 Grams Given 08/25/2021 5:36 PM CDT 2 Grams Given 08/25/2021 9:24 AM CDT 2 Grams ondansetron (ZOFRAN ODT) tablet 4 mg 4 mg, Oral, EVERY 6 HOURS PRN, Starting on Katie 08/24/21 at 1503, Until Sat08/25/21 at 0302, Nausea/Emesis, Routine Given 08/24/2021 6:49 PM CDT 4 mg ondansetron (ZOFRAN ODT) tablet 4 mg 4 mg, Oral, EVERY 6 HOURS PRN, Starting on 08/26/21 at 0005, Until 08/26/21 at 1558, Nausea/Emesis, Routine Given 08/26/2021 12:41 AM CDT 4 mg pantoprazole (PROTONIX) tablet 40 mg 40 mg, Oral, TWO TIMES DAILY, First dose on Katie 08/24/21 at 2100, Until Discontinued, Routine, Indication: Gastroesophageal reflux disease (GERD) Given 08/26/2021 10:26 AM CDT 40 mg Given 08/25/2021 10:32 PM CDT 40 mg Given 08/25/2021 9:25 AM CDT 40 mg predniSONE (DELTASONE) tablet 40 mg 40 mg, Oral, DAILY WITH BREAKFAST, 5 doses, First dose on Sat08/25/21 at 0800, Last dose on Sat08/29/21 at 0800, Routine Given 08/25/2021 9:24 AM CDT 40 mg sodium chloride 0.9% infusion IV, at 75 mL/hr, CONTINUOUS, Starting on Sat08/24/21 at 1515, Until Sat08/25/21 at 1514, Routine New Bag 08/24/2021 4:36 PM CDT 75 mL/hr sodium chloride 0.9% infusion IV, at 75 mL/hr, CONTINUOUS, Starting on Sat08/25/21 at 2245, Until Sat08/26/21 at 1558, Routine New Bag 08/25/2021 11:49 PM CDT 75 mL/hr sodium chloride flush injection 10 mL 10 mL, IV, ONE TIME ONLY, 1 dose, On Sat08/26/21 at 0800, Routine Given 08/26/2021 9:53 AM CDT 10 mL sodium chloride flush injection 10 mL 10 mL, IV, ONE TIME ONLY, 1 dose, On Sat08/26/21 at 0800, Routine Given 08/26/2021 9:53 AM CDT 10 mL sodium chloride flush injection 20 mL 20 mL, IV, ONE TIME ONLY, 1 dose, On Sat08/26/21 at 0800, Routine Given 08/26/2021 9:52 AM CDT 20 mL traZODone (DESYREL) tablet 100 mg 100 mg, Oral, DAILY AT BEDTIME, First dose on Sat08/24/21 at 2100, Until Discontinued, Routine Given 08/25/2021 10:24 PM CDT 100 mg Given 08/24/2021 9:13 PM CDT 100 mg documented in this encounter Active and Recently Administered Medications Times are shown in CDT. Scheduled Medication Order 08/24/2021 08/25/2021 08/26/2021 atorvastatin (LIPITOR) tablet 80 mg 80 mg, Oral, DAILY AT BEDTIME, First dose on Sat08/24/21 at 2100, Until Discontinued, Routine 2112 (Given - Provider: Kacy Mayorga RN) 2224 (Given - Provider: BLAISE Galo) buPROPion HCL (WELLBUTRIN SR) 12 hour tablet 150 mg 150 mg, Oral, TWO TIMES DAILY, First dose on Sat08/24/21 at 2100, Until Discontinued, Routine 2112 (Given - Provider: Kacy Mayorga, CLAU) 0924 (Given - Provider: Thuy Reyna RN)2225 (Given - Provider: BLAISE Galo) 1026 (Given - Provider: Caitie Walsh LPN) calcium GLUCONATE 2,000 mg in sodium chloride (iso-osmotic) 100 mL IVPB (COMPLETED) 2,000 mg, IV, PRE-PROCEDURE ONCE, 1 dose, Starting on 08/26/21 at 0800, Until 08/26/21 at 0954, Routine 0851 (New Bag - Provider: Sharri Juarez, CLAU)0951 (Stopped - Provider: Caitie Walsh LPN)0954 (Stopped - Provider: Sharri Juarez RN) citalopram (CeleXA) tablet 40 mg 40 mg, Oral, DAILY, First dose on Sat08/25/21 at 0900, Until Discontinued, Routine 0924 (Given - Provider: Thuy Reyna RN) 1025 (Given - Provider: Caitie Walsh LPN) dextrose 5% - sodium chloride 0.9% infusion IV, at 40 mL/hr, SEE ADMIN INSTRUCTIONS, Starting on Katie 08/24/21 at 1504, Until 08/26/21 at 1558, Routine dextrose 50% (D50) syringe 12.5 Gram 12.5 Gram, IV, SEE ADMIN INSTRUCTIONS, Starting on Katie 08/24/21 at 1504, Until 08/26/21 at 1558, Routine dextrose 50% (D50) syringe 25 Gram 25 Gram, IV, SEE ADMIN INSTRUCTIONS, Starting on Katie 08/24/21 at 1504, Until 08/26/21 at 1558, Routine diphenhydrAMINE (BENADRYL) injection 25 mg (COMPLETED) 25 mg, IV, ONE TIME ONLY, 1 dose, On Katie 08/24/21 at 1045, Routine 1045 (Given - Provider: Uyen Mercedes RN) enoxaparin (LOVENOX) injection 40 mg 40 mg, subCUT, EVERY 24 HOURS, First dose on Katie 08/24/21 at 1600, Until Discontinued, Routine, Indication: Prophylaxis of VTE 1630 (Given - Provider: Soren Cruz, CLAU) 1736 (Given - Provider: Thuy Reyna RN) famotidine (PEPCID) tablet 20 mg 20 mg, Oral, TWO TIMES DAILY, First dose on Katie 08/24/21 at 2100, Until Discontinued, Routine 2112 (Given - Provider: Kacy Mayorga RN) 0924 (Given - Provider: Thuy Reyna, CLAU)223 (Given - Provider: BLAISE Galo) 1026 (Given - Provider: Caitie Walsh LPN) famotidine PF (PEPCID) 20 mg/2 mL injection 20 mg (COMPLETED) 20 mg, IV, ONE TIME ONLY, 1 dose, On Katie 08/24/21 at 1045, Routine 1045 (Given - Provider: Uyen Mercedes RN) fenofibrate (LOFIBRA) tablet 160 mg 160 mg, Oral, DAILY, First dose on Sat08/25/21 at 0900, Until Discontinued, Routine 923 (Given - Provider: Thuy Reyna RN) 1025 (Given - Provider: Caitie Walsh LPN) glucagon (Human Recombinant) (GLUCAGEN) 1 mg/mL injection 1 mg 1 mg, IM, SEE ADMIN INSTRUCTIONS, Starting on Katie 08/24/21 at 1504, Until 08/26/21 at 1558, Routine heparin, porcine (pf) 10 unit/mL IV syringe 20 Units (COMPLETED)(Linked Group 1) 20 Units, IV, ONE TIME ONLY, 1 dose, On 08/26/21 at 0800, Stat 0953 (Given - Provider: Sharri Juarez RN) heparin, porcine lock flush (pf) 100 unit/mL injection 500 Units (COMPLETED)(Linked Group 1) 500 Units, IV, ONE TIME ONLY, 1 dose, On 08/26/21 at 0800, Stat 0953 (Given - Provider: Sharri Juarez RN) heparin, porcine lock flush (pf) 100 unit/mL injection 500 Units (COMPLETED)(Linked Group 2) 500 Units, IV, ONE TIME ONLY, 1 dose, On 08/26/21 at 0800, Stat 0953 (Given - Provider: Sharri Juarez RN) insulin glargine-yfgn injection 35 Units 35 Units, subCUT, TWO TIMES DAILY, First dose on Sat08/24/21 at 2100, Until Discontinued, Routine 2144 (Given - Provider: Kacy Mayorga RN) 09 (Given - Provider: Thuy Reyna RN)234 (Given - Provider: Kacy Mayorga RN) 1124 (Given - Provider: Caitie Walsh LPN) insulin lispro (HumaLOG) injection 0-3 Units 0-3 Units, subCUT, DAILY AT BEDTIME, First dose on Sat08/24/21 at 2100, Until Discontinued, Routine 214 (Given - Provider: Kacy Mayorga RN - Comment: bs [phone]) 234 (Given - Provider: Kacy Mayorga RN - Comment: bs [phone]) insulin lispro (HumaLOG) injection 0-4 Units 0-4 Units, subCUT, THREE TIMES DAILY WITH MEALS, First dose on Sat08/24/21 at 1700, Until Discontinued, Routine 163 (Given - Provider: Soren Cruz RN) 0925 (Given - Provider: Thuy Reyna RN)1442 (Given - Provider: Thuy Reyna RN)1853 (Given - Provider: Thuy Reyna RN) 0800 (Refused - Provider: Caitie Walsh LPN)1200 (Canceled Entry - Provider: Caitie Walsh LPN) insulin lispro (HumaLOG) injection 3 Units (COMPLETED) 3 Units, subCUT, ONE TIME ONLY, 1 dose, On Sat08/25/21 at 0215, Routine 0213 (Given - Provider: Kacy Mayorga RN - Comment: bs [phone]) insulin lispro (HumaLOG) injection 5 Units 5 Units, subCUT, THREE TIMES DAILY WITH MEALS, First dose on Sat08/24/21 at 1700, Until Discontinued, Routine 1631 (Given - Provider: Soren Cruz RN) 0925 (Given - Provider: Thuy Reyna RN)1442 (Given - Provider: Thuy Reyna RN)1852 (Given - Provider: Thuy Reyna RN) 0800 (Refused - Provider: Caitie Walsh LPN)1200 (Canceled Entry - Provider: Caitie Walsh LPN) ketorolac (TORADOL) injection 10 mg (COMPLETED) 10 mg, IV, ONE TIME ONLY, 1 dose, On 08/26/21 at 0130, Routine 0150 (Given - Provider: Kacy Mayorga RN) levothyroxine (SYNTHROID) tablet 200 mcg 200 mcg, Oral, DAILY EARLY, First dose on Sat08/25/21 at 0600, Until Discontinued, Routine 0518 (Given - Provider: Kacy Mayorga RN) 0650 (Given - Provider: BLAISE Galo) methylPREDNISolone sodium succinate (SOLU-Medrol) 125 mg in water sterile 2 mL injection (COMPLETED) 125 mg, IV, ONE TIME ONLY, 1 dose, On Katie 08/24/21 at 1045, Routine 1045 (Given - Provider: Uyen Mercedes RN) naloxone (NARCAN) 0.4 mg/mL injection 0.1 mg 0.1 mg, IV, SEE ADMIN INSTRUCTIONS, Starting on 08/26/21 at 0259, Until 08/26/21 at 1558, Routine omega-3 acid ethyl esters (LOVAZA) capsule 2 Gram 2 Gram, Oral, TWO TIMES DAILY WITH MEALS, First dose on Katie 08/24/21 at 1700, Until Discontinued, Routine 1630 (Given - Provider: Soren Cruz RN) 0924 (Given - Provider: Thuy Reyna RN)1736 (Given - Provider: Thuy Reyna RN) 1025 (Given - Provider: Caitie Walsh LPN) pantoprazole (PROTONIX) tablet 40 mg 40 mg, Oral, TWO TIMES DAILY, First dose on Ktaie 08/24/21 at 2100, Until Discontinued, Routine, Indication: Gastroesophageal reflux disease (GERD) 2113 (Given - Provider: Kacy Mayorga RN) 0925 (Given - Provider: Thuy Reyna RN)2232 (Given - Provider: BLAISE Galo) 1026 (Given - Provider: Caitie Walsh LPN) predniSONE (DELTASONE) tablet 40 mg (CANCELED) 40 mg, Oral, DAILY WITH BREAKFAST, 5 doses, First dose on Sat08/25/21 at 0800, Last dose on Sat08/29/21 at 0800, Routine 0924 (Given - Provider: Thuy Reyna RN) sodium chloride flush injection 10 mL (COMPLETED)(Linked Group 1) 10 mL, IV, ONE TIME ONLY, 1 dose, On 08/26/21 at 0800, Routine 0953 (Given - Provider: Sharri Juarez, CLAU) sodium chloride flush injection 10 mL (COMPLETED)(Linked Group 1) 10 mL, IV, ONE TIME ONLY, 1 dose, On 08/26/21 at 0800, Routine 0953 (Given - Provider: Sharri Juarez RN) sodium chloride flush injection 20 mL (COMPLETED)(Linked Group 2) 20 mL, IV, ONE TIME ONLY, 1 dose, On 08/26/21 at 0800, Routine 0952 (Given - Provider: Sharri Juarez RN) traZODone (DESYREL) tablet 100 mg 100 mg, Oral, DAILY AT BEDTIME, First dose on Sat08/24/21 at 2100, Until Discontinued, Routine 2113 (Given - Provider: Kacy Mayorga RN) 2224 (Given - Provider: BLAISE Galo) Continuous Medication Order 08/24/2021 08/25/2021 08/26/2021 sodium chloride 0.9% infusion IV, at 75 mL/hr, CONTINUOUS, Starting on Sat08/24/21 at 1515, Until Sat08/25/21 at 1514, Routine 1636 (New Bag - Provider: Soren Cruz RN) sodium chloride 0.9% infusion IV, at 75 mL/hr, CONTINUOUS, Starting on Sat08/25/21 at 2245, Until 08/26/21 at 1558, Routine 2349 (New Bag - Provider: Kacy Mayorga RN) PRN Medication Order 08/24/2021 08/25/2021 08/26/2021 acetaminophen (TYLENOL) tablet 650 mg 650 mg, Oral, EVERY 6 HOURS PRN, Starting on Katie 08/24/21 at 1643, Until 08/26/21 at 1558, Pain, Mild / Temperature, T>100F, Routine 1738 (Given - Provider: Soren Cruz RN) 2353 (Given - Provider: Kacy Mayorga RN) diphenhydrAMINE (BENADRYL) injection 25 mg (COMPLETED) 25 mg, IV, ONE TIME PRN, 1 dose, Starting on Katie 08/24/21 at 2230, Until Katie 08/24/21 at 2230, Itching, Routine 2230 (Given - Provider: Kacy Mayorga RN) diphenhydrAMINE (BENADRYL) tablet 25 mg 25 mg, Oral, EVERY 6 HOURS PRN, Starting on Katie 08/24/21 at 1504, Until 08/26/21 at 1558, Itching, Routine 1632 (Given - Provider: Soren Cruz RN) 0757 (Given - Provider: Thuy Reyna RN)1740 (Given - Provider: Thuy Reyna RN) 0158 (Given - Provider: Kacy Mayorga RN)0322 (Return to [facility] - Provider: BLAISE Galo)1141 (Given - Provider: Caitie Walsh LPN) EPINEPHrine (ADRENALINE) 1 mg/mL (1 mL) injection 0.3 mg 0.3 mg, subCUT, ONE TIME PRN, 1 dose, Starting on Katie 08/24/21 at 1504, Until 08/26/21 at 1558, Other (See Comment), See Admin Instructions, Routine HYDROcodone-acetaminop hen (NORCO) 5-325 mg per tablet 1 Tablet 1 Tablet, Oral, EVERY 4 HOURS PRN, Starting on 08/26/21 at 0259, Until 08/26/21 at 1558, Pain, Break-Through, Pain, Severe, Routine 0324 (Given - Provider: BLAISE Galo)1025 (Given - Provider: Caitie Walsh LPN) LORazepam (ATIVAN) tablet 1 mg 1 mg, Oral, TWO TIMES DAILY PRN, Starting on Katie 08/24/21 at 1504, Until 08/26/21 at 1558, Anxiety, Routine 1630 (Given - Provider: Soren Cruz RN) 0925 (Given - Provider: Thuy Reyna RN)2232 (Given - Provider: BLAISE Galo) ondansetron (ZOFRAN ODT) tablet 4 mg () 4 mg, Oral, EVERY 6 HOURS PRN, Starting on Katie 08/24/21 at 1503, Until Sat08/25/21 at 0302, Nausea/Emesis, Routine 1849 (Given - Provider: Soren Cruz, RN) ondansetron (ZOFRAN ODT) tablet 4 mg 4 mg, Oral, EVERY 6 HOURS PRN, Starting on 08/26/21 at 0005, Until 08/26/21 at 1558, Nausea/Emesis, Routine 0041 (Given - Provider: Kacy Mayorga, CLAU) No Frequency Medication Order 08/24/2021 08/25/2021 08/26/2021 EPINEPHRINE 1 MG/ML (1 ML) INJECTION SOLUTION (CABINET OVERRIDE) (COMPLETED) 1 dose, Starting on Katie 08/24/21 at 1031, Until Katie 08/24/21 at 1045, Cameron Mohan Molly: cabinet override 1045 (Given - Provider: Uyen Mercedes RN) Linked Groups Order Group 1: sodium chloride flush injection 10 mL (COMPLETED)Jump to med 10 mL, IV, ONE TIME ONLY, 1 dose, On 08/26/21 at 0800, Routine Followed by heparin, porcine (pf) 10 unit/mL IV syringe 20 Units (COMPLETED)Jump to med 20 Units, IV, ONE TIME ONLY, 1 dose, On 08/26/21 at 0800, Stat Followed by sodium chloride flush injection 10 mL (COMPLETED)Jump to med 10 mL, IV, ONE TIME ONLY, 1 dose, On 08/26/21 at 0800, Routine Followed by heparin, porcine lock flush (pf) 100 unit/mL injection 500 Units (COMPLETED)Jump to med 500 Units, IV, ONE TIME ONLY, 1 dose, On 08/26/21 at 0800, Stat Group 2: sodium chloride flush injection 20 mL (COMPLETED)Jump to med 20 mL, IV, ONE TIME ONLY, 1 dose, On 08/26/21 at 0800, Routine Followed by heparin, porcine lock flush (pf) 100 unit/mL injection 500 Units (COMPLETED)Jump to med 500 Units, IV, ONE TIME ONLY, 1 dose, On 08/26/21 at 0800, Stat documented in this encounter Care Teams Center Consultant Relationship Specialty Start Date End Date Guerrero Middleton PA-C PCP - General Physician Aquaculture Program Director 02/13/18 documented as of this encounter
--- OUTSIDE RECORDS SUMMARY | 2024-05-03 20:38 | XMS_ITS | Encounter Summary ---
Author Organization [facility] Address [address] Orozco: Epic Prelude ADT [place] [address] Care Team Providers Care Assistant Infant Toddler Teacher Name Role Phone Guerrero Middleton PA-C Primary Care Provide r Encounter Details Date Type Department Care Team (Latest Contact Info) Description 08/15/2021 Travel Social History Tobacco Use Types Packs/Day [...] 08/21/2018 How often do you attend [facility] or hindu services? Never 08/21/2018 Do you belong to [...] suspected to have Coronavirus/COVID-19? No / Unsure 08/15/2021 9:02 AM CDT documented as of this encounter Plan of Treatment Upcoming Encounters Date Type Department Care Team (Late st Contact Info) Description 09/14/2024 3:00 PM CDT Office Visit [facility] [address] [place] [address] Marlys Mayer MD [address] [place], [place] [id number] documented as of this encounter Visit Diagnoses Not on filedocumented in this encounter Additional Health Concerns Assessment Noted Time PHQ-9 Depression Total Score: 1 08/11/19 21 6:30 PM CDT documented as of this encounter Care Teams Assistant Infant Toddler Teacher Relationship Specialty Start Date End Date Guerrero Middleton PA-C PCP - General Physician Sales And Service Change Leader 02/13/18 documented as of this encounter
--- OUTSIDE RECORDS SUMMARY | 2024-05-03 20:38 | XMS_ITS | Encounter Summary ---
Author Organization [facility] Address [address] [place] [address] Care Team Providers Care Film Or Tape Librarian Name Role Phone Guerrero Middleton PA-C Primary Care Provide r Encounter Details Date Type Department Care Team (Latest Contact Info) Description 05/25/2021 12:00 PM GRADUATE ASSISTANT - 05/25/2021 11:59 PM [facility] Hospital Encounter [facility] [address] [address] Nicole Rosas MD [address] [place] [address] Discharge Disposition: Home or Self [...] often do you attend chur ch or tenriism services? Never 08/21/2018 Do you belong to [...] have Coronavirus / COVID-19? No / Unsure 05/25/2021 11:18 AM GRADUATE ASSISTANT documented as of this encounter Last Filed Vital Signs Vital Sign Reading Time Taken Comments Blood Pressure 99/64 05/25/2021 1:08 PM GRADUATE ASSISTANT Pulse 87 05/25/2021 1:08 PM GRADUATE ASSISTANT Temperature 36.7 ??C (98.1 ??F) 05/25/2021 1:08 PM CS T Respiratory Rate 18 05/25/2021 1:08 PM GRADUATE ASSISTANT Oxygen Saturation - - Inhaled Oxygen Concentration [...] PER CORRECTION DOSE WITH MEALS 15 mL 05/02/2021 06/01/2021 metFORMIN (GLUCOPHAGE) 1,000 mg tablet TAKE 1 TABLET (1,000 MG) BY MOUTH 2 TIMES DAILY WITH MEALS. 180 Tablet 05/01/2021 11/29/2023 buPROPion HCL (WELLBUTRIN SR) 150 mg Sustained Release 12 hour tablet TAKE 1 TABLET BY MOUTH 2 TIMES DAILY 60 Tablet 5 03/30/2021 09/20/2021 empagliflozin (Jardiance) 25 mg tablet TAKE 1 TABLET BY MOUTH EVERY DRY GOODS INSPECTOR 30 Tablet 5 12/07/2020 06/01/2021 Vascepa 1 gram Capsule TAKE 2 CAPSULES (2 GRAMS) BY MOUTH 2 TIMES DAILY WITH MEALS. 120 Capsule 5 12/07/2020 06/01/2021 levothyroxine 200 mcg tabletIndications:Acq uired hypothyroidism Take [...] as of this encounter Progress Notes * Melodie Vasquez RN - 05/25/2021 12:00 PM CST Casandra Jones Plasma exchange completed today using R and L Bard port for draw and return. 1.0 volume, 100% fluid balance using 5% Albumin as replacement fluid completed. 2 grams calcium gluconate given intra procedure. Patient tolerated procedure well. Next procedure scheduled for 06/01/2021. UATE ASSISTANT * Nicole Mondragon MD - 05/25/2021 12:00 PM CST CC: ??45??yo female undergoing prophylaxis for??hypertriglyceridemic pancreatitis in the setting ofrecurrent necrotizing pancreatitis requires??plasma exchange. ?? Interval history:??At baseline. ?? Procedure note: 1.0 volume plasma exchange with 5% albumin replacement, 100% fluid balance, 2 g calcium gluconate during procedure.?Patient tolerated the procedure without complaints or adverse events. ?? 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 05/05/21 preprocedure triglycerides >4425 mg/dL 05/05/21 postprocedure triglycerides 2667 mg/dL 05/25/21 preprocedure triglycerides not resulted; unable to evaluate due to lipidemia 05/25/21 postprocedure triglycerides 3,973 mg/dL ? A&P: 1. 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 2. Continue maintenance PLEX with 1.0 volume exchange, 5% albumin replacement, 100% fluid volume, 2g calcium gluconate during procedure on a weekly basis, or more frequent based on symptoms and triglyceride levels. 3. Next procedure??scheduled??06/01/21. ?? I have reviewed pertinent notes and records and remained immediately available throughout the procedure. ?? Nicole Mondragon MD [employer] [employer], therapeutic apheresis service [phone] UATE ASSISTANT documented in this encounter Plan of Treatment Upcoming Encounters Date Type Department Care Team (Late st Contact Info) Description 09/14/2024 3:00 PM CDT Office Visit [facility] Heart and Vascular - [facility] [address] [place] [address] Marlys Mayer MD [address] [place] [address] documented as of this encounter Procedures Procedure Name Priority Date/Time Associated Diagnosis Comments TRIGLYCERIDE Routine 05/25/2021 12:52 PM GRADUATE ASSISTANT Hypertriglyceridemia TRIGLYCERIDE Routine 05/25/2021 12:04 PM GRADUATE ASSISTANT Hypertriglyceridemia documented in this encounter Results * (ABNORMAL) TRIGLYCERIDE (05/25/2021 12:52 PM GRADUATE ASSISTANT) Pathologist [facility] TRIGLYCERIDE 3,973(H) <150 mg/dL 05/25/2021 2:00 PM GRADUATE ASSISTANT [facility] Blood Venipuncture / Unknown 05/25/2021 12:52 PM GRADUATE ASSISTANT 05/25/2021 12:52 PM GRADUATE ASSISTANT [facility] - 05/25/2021 2:00 PM GRADUATE ASSISTANT TRIGLYCERIDES ? mg/dL Normal ?< 150 Borderline High ?150 - 199 High ? 200 - 499 Very High ? >= 500 Based on AHA/NCEP Guidelines. Nicole Rosas MD [employer] YONI Cord ProjectJANES Performing Organization Address [facility] de Phone Number [facility]# [id number] [address] [place] [address] * TRIGLYCERIDE (05/25/2021 12:04 PM GRADUATE ASSISTANT) [facility] TRIGLYCERIDE 05/25/2021 2:19 PM GRADUATE ASSISTANT [facility] Comment:Unable to evaluate d ue to lipemia. Blood Venipuncture / Unknown 05/25/2021 12:04 PM GRADUATE ASSISTANT 05/25/2021 12:04 PM GRADUATE ASSISTANT [facility] - 05/25/2021 2:19 PM GRADUATE ASSISTANT TRIGLYCERIDES ? mg/dL Normal ?< 150 Borderline High ?150 - 199 High ? 200 - 499 Very High ? >= 500 Based on AHA/NCEP Guidelines. Nicole Rosas MD [employer] Performing Organization Address [facility] de Phone Number [facility] CLIA# [id number] [address] [place] [address] documented in this encounter Visit Diagnoses Diagnosis Hypertriglyceridemia- Primary Pure hyperglyceridemia documented in this encounter Administered Medications Inactive Administered Medications - up to 3 most recent administrations Medication Order MAR Action Action Date Dose Rate Site calcium GLUCONATE 2,000 mg in sodium chloride (iso-osmotic) 100 mL IVPB 2,000 mg, IV, ONE TIME ONLY, 1 dose, On Katie 05/25/21 at 1200, Routine New Bag 05/25/2021 11:56 AM GRADUATE ASSISTANT 2,000 mg 100 mL/hr heparin, porcine (pf) 10 unit/mL IV syringe 20 Units 20 Units, IV, ONE TIME ONLY, 1 dose, On Katie 05/25/21 at 1200, Routine Given 05/25/2021 12:40 PM GRADUATE ASSISTANT 20 Units heparin, porcine lock flush (pf) 100 unit/mL injection 500 Units 500 Units, IV, ONE TIME ONLY, 1 dose, On Katie 05/25/21 at 1200, Routine Given 05/25/2021 12:40 PM GRADUATE ASSISTANT 500 Units heparin, porcine lock flush (pf) 100 unit/mL injection 500 Units 500 Units, IV, ONE TIME ONLY, 1 dose, On Katie 05/25/21 at 1200, Routine Given 05/25/2021 12:40 PM GRADUATE ASSISTANT 500 Units sodium chloride flush injection 10 mL 10 mL, IV, ONE TIME ONLY, 1 dose, On Katie 05/25/21 at 1200, Routine Given 05/25/2021 12:42 PM GRADUATE ASSISTANT 10 mL sodium chloride flush injection 10 mL 10 mL, IV, ONE TIME ONLY, 1 dose, On Katie 05/25/21 at 1200, Routine Given 05/25/2021 12:40 PM GRADUATE ASSISTANT 10 mL sodium chloride flush injection 20 mL 20 mL, IV, ONE TIME ONLY, 1 dose, On Katie 05/25/21 at 1200, Routine Given 05/25/2021 12:40 PM GRADUATE ASSISTANT 20 mL documented in this encounter Additional Health Concerns Assessment Noted Time PHQ-9 Depression Total Score: 1 08/11/19 21 6:30 PM CDT documented as of this encounter Care Teams Film Or Tape Librarian Relationship Specialty Start Date End Date Guerrero Middleton PA-C PCP - General Physician Scrubber Machine Tender 02/13/18 documented as of this encounter
--- OUTSIDE RECORDS SUMMARY | 2024-05-03 20:38 | XMS_ITS | Encounter Summary ---
Author Organization [facility] Address [address] Orozco: Epic Prelude ADT [place] [address] Care Team Providers Care Automatic Silk Screen Printer Name Role Phone Guerrero Middleton PA-C Primary Care Provide r Encounter Details Date Type Department Care Team (Latest Contact Info) Description 08/21/2021 Travel Social History Tobacco Use Types Packs/Day [...] week 08/21/2018 How often do you attend [facility] or gnosticist services? Never 08/21/2018 Do you belong to [...] suspected to have Coronavirus/COVID-19? No / Unsure 08/21/2021 8:55 AM CDT documented as of this encounter Plan of Treatment Upcoming Encounters Date Type Department Care Team (Late st Contact Info) Description 09/14/2024 3:00 PM CDT Office Visit [facility] - [facility] [address] [address] [place] [address] Marlys Mayer MD [address] [place], [place] [id number] documented as of this encounter Visit Diagnoses Not on filedocumented in this encounter Additional Health Concerns Assessment Noted Time PHQ-9 Depression Total Score: 1 08/11/19 21 6:30 PM CDT documented as of this encounter Care Teams Automatic Silk Screen Printer Relationship Specialty Start Date End Date Guerrero Middleton PA-C PCP - General Physician Dry Goods Inspector 02/13/18 documented as of this encounter
--- OUTSIDE RECORDS SUMMARY | 2024-05-03 20:38 | XMS_ITS | Encounter Summary ---
Author Organization [facility] Address [address] Orozco: Epic Prelude ADT [place] [address] Care Team Providers Care Dry Press Operator Name Role Phone Guerrero Middleton PA-C Primary Care Provide r Encounter Details Date Type Department Care Team (Latest Contact Info) Description 08/26/2021 Travel Social History Tobacco Use Types Packs/Day [...] week 08/21/2018 [facility] services? Never 08/21/2018 Do you belong to [...] [facility] [address] [place] [address] Marlys Mayer MD [address] [place] [address] documented as of this encounter Visit Diagnoses Not on filedocumented in this encounter Care Teams Dry Press Operator Relationship Specialty Start Date End Date Guerrero Middleton PA-C PCP - General Physician Welt Stitch Cleaner 02/13/18 documented as of this encounter
--- OUTSIDE RECORDS SUMMARY | 2024-05-03 20:38 | XMS_ITS | Encounter Summary ---
Author Organization [facility] Address [address] [place] [address] Care Team Providers Care Dining Car Conductor Name Role Phone Guerrero Middleton PA-C Primary Care Provide r Reason for Visit * Reason Comments Suicidal Pt tearful, states s he is SI with plan to OD. I'm just upset about a lot of things and aggravated about my kids. She is prescribed celexa and wellbutrin, but has not taken meds in 2 weeks. Denies HI. * Auth/Cert Specialty Diagnoses / Procedures Referred By Tequila bowman Referred To Contact Emergency Medicine [facility] Emergency Dept [address] [place] [address] Referral ID Status Reason Start Date Expiration Date Visits Re quested Visits Authorized [id number] 1 1 Encounter Details Date Type Department Care Team (Latest Contact Info) Description 09/13/2021 4:22 PM CDT - 09/20/2021 6:56 PM CDT Hospital Encounter [facility] Med Surg ICU [facility] [address] [place] [address] Antwon Coyle MD [address] [place] [address] Trey Solorzano MD [address] [facility] [address] [place] [address] Erick Venegas MD [address] [facility] [address] [place] [address] Flores Morales MD [address] [place] [address] Suicide ideation Discharge Disposition: Home or Self Care Social [...] How often do you attend chur or jain services? Never 08/21/2018 Do you belong to any clubs o r organizations such as muslim groups, unions, fraternal or athletic groups, or [...] PM CDT documented as of this encounter Last Filed Vital Signs Vital Sign Reading Time Taken Comments Blood Pressure 118/71 09/20/2021 5:02 PM CDT Pulse 83 09/20/2021 5:02 PM CDT Temperature 36.8 ??C (98.2 ??F) 09/20/2021 12:03 PM C DT Respiratory Rate 18 09/20/2021 12:03 PM CDT Oxygen Saturation 96% 09/20/2021 5:02 PM CDT Inhaled Oxygen Concentration - - Weight 90.4 kg (199 lb 4.8 oz) 09/15/2021 7:53 A M CDT Height 165.1 cm (5' 5 ) 09/14/2021 12:00 AM CDT Body Mass Index 33.17 09/14/2021 12:00 AM CDT documented in this encounter Discharge Summaries * Imelda Mclain MD - 09/20/2021 2:38 PM CDT Patient: Casandra Jones / 45 y.o. / female : 1975 CSN: [id number] Admission date: 09/13/2021 Discharge date: 09/20/2021 Admitting Diagnoses: No admission diagnoses are documented for this encounter. Problem List: Active Hospital Problems Diagnosis ??? Severe episode of recurrent major depressive disorder, without psychotic features ??? Diabetes mellitus type I ??? Suicide ideation ??? Hyponatremia Resolved Hospital Problems No resolved problems to display. Consults: none. Procedures: plasma exchange Treatments: IV hydration and insulin: Humalog. Significant Diagnostic Studies: N/A. Body mass index is 33.17 kg/m??. Hospital Course: Casandra Jones is a 45 y.o. 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 On weekly Rx outpatient by [facility](Endo Dr Ismael soto), PCOS, hypothyroidism,??IDDM, GERD, depression, HLD Prv Admission 08/24 chylomicronemia induced hypertriglyceridemia s/p [facility]. Presents??to the ED on 09/13/2021 with SI. Patient??reports feelings of worthlessness.??+VE SI with plans to hurt herself by??overdose.??Patient also reported epigastric ABD pain. Has skipped a couple of [facility] sessions d/t self reported allergic reaction . Outpatient notes reviewed. Initial CHEM7 TG??>4,000.??Defer insulin ggt.??Patient was admitted to ICU for suicide precautions. During her stay in [facility] conclusion was made for inpatient behavioral health therapy. Patient was also treated for hypertriglyceridemia with multiple plasma exchange sessions. Over time patient became medically clear to be switched to behavioral health however due to unavailability patient was treated for her behavioral health issues in the ICU. [facility] care of her . According to behavioral health patientwas extensively educated about compliance of medication, instruction for management treatment and or follow-up. Patient was provided education about condition and risk factor reduction. There was also discussion about bio/cycle/social aspects of patient's care. Neuro/Psych:? Suicidal Ideation with Plan 1. [facility] consulted- evaluated patient 2. Suicide watch- sitter 3. Increased Wellbutrin to 450 mg daily and change to XL for depression. 4. Continue Celexa 40 mg daily for depression, anxiety. 5. Continue Trazodone 100 mg nightly for insomnia. 6. Trazodone 50 mg PRN insomnia. 7. Hydroxyzine 25 mg Q 6 PRN anxiety. 8. Plan is to discharge home with a safety plan 9. Psych following 10. Continue suicide precautions, 1:1 sitter. ?? Mood Disorder/MDD/PTSD/anxiety 1. Continue CHIEF INFORMATION OFFICER citalopram 40 mg daily 2. Continue CHIEF INFORMATION OFFICER bupropion 150 mg twice daily 3. Continue CHIEF INFORMATION OFFICER trazodone 100 mg daily at bedtime ?? Pain control 1. Tylenol 2. Oxy 5 mg QID Cardiovascular/Fluids: ?? GAYATHRI Pulmonary:? GAYATHRI ?? Allergies 1. ceterizine?? GI/NUT:? 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 S/p Therapeutic Plasmapheresis x3 2. Dr. Riddle following the patient: s/p Plasma exchange x3 3. Continue CHIEF INFORMATION OFFICER Rosuvastatin 4. Continue CHIEF INFORMATION OFFICER Fenofibrate 5. Pain control PRN meds ? H/o recurrent Chronic pancreatitis - Not an acute issue ? CT abdomen negative for acute pancreatitis, lipase normal ?? 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 GERD 1. Protonix ?? Diabetic Diet: advance as tolerated- low fat ?? Nutrition: Current Diet and/or Nutritional Supplementation ordered:??Low fat, diabetic diet. ? Renal/LYTES/Acid-Base: ?? GAYATHRI ?? BMP Q72 hours with lab holidays Infectious Disease:? GAYATHRI Hem/Onc/Coag:? Anemia: with Hb of 9.6 ?? lovenox Endocrine:? Uncontrolled hyperglycemia in IDDM; 08/24 A1c 8.9 : glucose still not well controlled. ? Added NPH 12 Units BID ? Insulin ACHS ? Hypoglycemia pathway ?? Hypothyroidism 1. CHIEF INFORMATION OFFICER Synthroid Musculoskeletal/Skin: ?? GAYATHRI Nutritional status and in-house recommendations: Current Diet and/or Nutritional Supplementation ordered: No diet orders on file Disposition: home. MEDICATIONS Prior to admission: No medications prior to admission. Discharge medications and new prescriptions: Medication List START taking these medications buPROPion HCL 450 mg Extended Release 24 hour tablet Commonly known as: FORFIVO XL Take 450 mg by mouth daily for 7 days. Signed by: Anahi Bass DO Quantity: 7 Tablet Refills: 0 Replaces: buPROPion HCL 150 mg Sustained Release 12 hour tablet CONTINUE taking these medications Pamela Monge U-100 Insulin 100 unit/mL pen syringe 35 units bid Signed by: Dr. Prudence Gates MD Quantity: 60 mL Refills: 1 Generic drug: insulin glargine citalopram 40 mg tablet Commonly known as: [...] Jardiance TAKE 1 TABLET BY MOUTH EVERY JAVA J2EE APPLICATION DEVELOPER Signed by: Dr. Prudence Gates MD Quantity: 30 Tablet Refills: 0 fenofibrate 160 mg Tablet Commonly known as: LOFIBRA TAKE 1 TABLET BY MOUTH EVERY DAY Signed by: Dr. Prudence Gates MD Quantity: 90 Tablet Refills: 0 Fish Oil-[place]-3 Fatty Acids 360-1,200 mg Capsule Take 2 [...] Capsule Refills: 0 Generic drug: icosapent ethyL STOP taking these medications buPROPion HCL 150 mg Sustained Release 12 hour tablet Commonly known as: WELLBUTRIN SR Replaced by: buPROPion HCL 450 mg Extended Release 24 hour tablet Where to Get Your Medications These medications were sent to [facility]/pharmacy #[id number] - [place], [place] - [address] [facility] [address] [facility] [address] ?? buPROPion HCL 450 mg Extended Release 24 hour tablet Patient instructions: Activity, Diet, Wound Care, and Follow-up have been documented in the discharge instructions and will not be repeated here. Signed: Imelda Mclain MD 09/27/2021, 2:46 PM documented in this encounter Discharge Instructions * Discharge Instructions* Percy Benedict RN - 09/20/2021 12:08 PM CDT Casandra's Safety Plan Safety Plan and Suicide Resources Document Signs which indicate it???s time for me to use my safety plan: Feeling , becoming more withdrawn, becoming upset more often My coping skills are: go for a walk, listen to music, irineo My reasons to live are: family People and places that can distract me from feeling unsafe include: - Wang Hazel @ [facility] Zeynep Jerome - professor of social work through [facility] My friends and family members who can help me if I need them include: - Pastor Ilir Piña Professionals/agencies I can contact if I need them include: [facility], [facility], Suicide Crisis I will make my environment safe by: having help monitor medications I will be regularly monitored and observed by: (Wang) National Suicide Prevention Lifeline # 1-210-244-TALK (4872) Crisis Text Line - Text ???Start?? to 871-909 Suicide Resources Suicide Prevention/Crisis Hotlines [facility]) - Behavioral Health Intake Department: [phone] [facility] Behavioral Health Intake Department is professionally staffed and offers free, confidential evaluations for anyone needing assistance with psychiatric and behavioral issues. Evaluations are available 24 hours a day, 7 days a week. [facility]: 087-297-WWZZ (1565) [facility] is one of the nation's oldest suicide prevention and crisis hotlines. [facility] operates 24 hours a day Behavioral Health Response: 824.589.3041 or 529-879-1728 [facility] ([facility]) is a professionally staffed crisis response service. R provides expert behavioral health, crisis response, and outreach services /[facility] Suicide Hotline: 2-520-685-TALK (6048) Press 1 National Suicide Prevention Hotline: 3-399-727-TALK (8225) 19/11 hotline available to anyone in suicidal crisis or emotional distress. Call's will be routed tot nearest crisis center to you National Hope-Line Network: 6-648-BYQAQFT (132-7272) 19/11 hotline that connects people who are depressed or suicidal, or those who are concerned about someone they love, automatically to a CONTRACT [facility] or [facility] certified crisis center. Crisis Text Line: Just send a text message to 503512 Live, trained crisis counselors available 19/11 via text message; You'll receive an automated text asking you what your crisis is and within minutes , a live trained crisis counselor will answer your text. They will help you out of a moment of crisis and work with you to create a plan to continue tofeel better. Referrals: [facility] [phone] [facility] [phone] [facility] @ [facility] [phone] Casandra Jones (1975) Casandra was seen in [facility]'s Behavioral Health Department on 09/19/21 by an Talent Development Coordinator. Per the consulting provider, it has been determined that patient is safe for discharge to home with safety plan established at this time. Patient currently lacks evidence of intent, plan and means to do harm and appears to be at baseline functioning. Patient has been given the following recommendations provided below Intensive Outpatient Program/Start Date: You have been referred to [facility] for registration and determination of In-Person or Virtual IOP services. Your will receive a phone call from IOP staff WITHIN 1-3 BUSINESS DAYS to discuss availability within the program (DOES NOT INCLUDE HOLIDAYS OR WEEKENDS) Please review the following information and if you have any questions you may contact the number listed. Intensive Outpatient Therapy [facility] Outpatient [facility] are currently providing a combination of virtual outpatient behavioral health services and in person outpatient programming. You will work with the Intensive Outpatient Program scheduling team to determine which program is the best fit for you. We have four locations: [place], [facility], and [facility]. If enrolled in [facility] virtual outpatient behavioral health therapy Programming is accessible from your PC, tablet, or smartphone. You will need to participate with both video and audio in your sessions to connect with your team. Virtual therapy provides the effectiveness of in person services fromthe privacy and comfort of your own home. You will receive the same professional, caring, and comprehensive counseling services without the commuting miles and at no extra cost. [facility] Outpatient [facility] virtual services are secure and are supervised by a team of licensed, experienced professionals who provide the same evidence-based treatment programming as our in-person equivalent. WHAT SERVICES WILL I RECEIVE? Both in person and virtual programming require patient to attend nine hours of group therapy programing weekly to address mental health or a combination of substance abuse/mental health life issues. Patients will also meet weekly with a Psychiatrist or Nurse Practitioner while in the program for medication management. Individualized treatment plans are developed with your treatment team to best meet your needs. A weekly commitment of 10 hours day programming participation is required. GETTING STARTED You will receive a call from registration to verify your personal information such as spelling of your name, insurance, phone number and your e-mail address. A Registered Nurse will also be calling to review your medical history and your medications. After you are registered you will receive appointments for meeting with your Psychiatrist/ENGRAVED ROLLER INSPECTOR and group times. CAN I SEE MY PRIVATE THERAPIST/PSYCHIATRIST WHILE IN THE PROGRAM? Seeing a private therapist/psychiatrist while in the program may create challenges from an insurance perspective. If you wish to see your private therapist/psychiatrist while you attend the program, please discuss this with your treatment team. INSURANCE COVERAGE AND FEES Our Care Coordination team works with your insurance company to obtain authorization for the appropriate number of visits needed for your care. It is your responsibility to stay in communication withyour insurance company; however, we are happy to provide you with the information that your plan gives us regarding your deductible, co-payment, and approved days of treatment. DOCTOR'S FEES Psychiatrist fees and any necessary lab fees are separate from the cost of the treatment program. For information about the limits of your benefits including deductibles and co-pays, please contact the Member Services phone number listed on your insurance card. PATIENT CONCERNS If at any time you have concerns regarding the program or the care you receive, please contact: [phone] Patient and/or Guardian/POA has been given an opportunity to ask any questions and denied any further concerns. Patient and/or Guardian/POA has verbalized understanding to return to ED if condition worsens. Patient and/or Guardian/POA has verbalized understanding and agreement to utilize these resources. Should Casandra have any concerns for safety, Casandra is agreeable to yolanda a trusted family member or friend, current providers, [facility] at the number listed below, any of the crisis lines below, 911 or go to your nearest emergency department. SUICIDE PREVENTION AND CRISIS HOTLINES [facility]: [facility] Intake Department is professionally staffed and offers free, confidential evaluations for anyone needing assistance with psychiatric and behavioral issues. Evaluations are available 24 hours a day, 7 days a week. National Suicide Prevention Hotline: 4-637-443-TALK (8443) 19/11 hotline available to anyone in suicidal crisis or emotional distress. Calls will be routed to the nearest crisis center to you [facility] National Helpline - TTY: Disaster Distress Helpline - TTY: /[facility]ans Suicide Hotline: 5-149-914-TALK (2265) Press 1 [place] Hope-Line Network: 1-178-YHLFOEA (468-5261) 19/11 hotline that connects people who are depressed or suicidal, or those who are concerned about someone they love, automatically to a CONTRACT [facility] or [facility] certified crisis center. Crisis Text Line: Just send a text message to [phone] Live, trained crisis counselors available 19/11 via text message; You'll receive an automated text asking you what your crisis is and within minutes , a live trained crisis counselor will answer your text. They will help you out of a moment of crisis and work with you to create a plan to continue tofeel better. [place] [address] Youth Hotlines Kids Under Twenty-One Crisis Help-line: 8-897-191-HAILY (1360) The Ted Crisis Help-line is a confidential telephone hotline available to any youth who may be in need of assistance, referral information, or crisis service. The TED help-line is one of a handful of hotline staffed exclusively by youth volunteers. LGBT Youth Suicide Hotline: 1-866 -U- CECILIA (547-7713) Kid Save: documented in this encounter Medications at Time [...] by mouth 2 times daily. 06/05/2018 09/26/2023 buPROPion HCL (FORFIVO XL) 450 mg Extended Release 24 hour tablet Take 450 mg by mouth daily for 7 days. 7 Tablet 09/21/2021 09/28/2021 insulin aspart U-100 (NovoLOG Flexpen U-100 Insulin) 100 unit/mL pen syringe INJECT APPROXIMATELY 50 UNITS A DAY PER CORRECTION DOSE WITH MEALS 15 mL 06/01/2021 09/26/2023 empagliflozin (Jardiance) 25 mg tablet TAKE 1 TABLET BY MOUTH EVERY JAVA J2EE APPLICATION DEVELOPER 30 Tablet 06/01/2021 09/19/2023 Vascepa 1 gram [...] as of this encounter Progress Notes * Percy Benedict, RN - 09/20/2021 5:32 PM CDT Pt reportedly told her RN that she was uncomfortable being discharged to home. The pt's MD contacted the on-call ENGRAVED ROLLER INSPECTOR with concerns that pt felt unsafe to be discharge and that she would not have the appropriate coping skills to help her until her IOP appt. I went to speak with pt on behalf of the ENGRAVED ROLLER INSPECTOR. Pt denied any concern regarding safety. She stated that she did feel safe and ready to go home with her , who showed up while I was speaking with the patient. He and pt were adamant that they were leaving tonight. I told the ENGRAVED ROLLER INSPECTOR this. He spoke to Dr. Nunez, who cleared pt to be dischargedthis evening as originally planned. * Imelda Mclain MD - 09/20/2021 2:06 PM CDT Called the and updated and answered all the questions. * Roland Ballesteros NP - 09/20/2021 12:26 PM CDT Chief Complaint: Feeling depressed still Detailed Interval History: Casandra was seen as a follow up from psychiatry this afternoon. Casandra and I had a long discussion regarding potential next phases of care. Nan RN completed safety plan yesterday with this patient and talked with who does not have safety concerns at this time regarding patient coming home. Casandra denies having any plans, intent, or thoughts to harm herself if she was to return home. She also reports that she would be able to tell or bring herself back to emergency facility if she was having SI again. Casandra still reports having depression at this time and rates depression a 7/10 . States that she is unsure of how to deal with situations back at home once she is discharged from the hospital setting. Feels like sons do not like her and that is sometimes unsupportive towards her. Rates anxiety a 5/10 with 10 being the most severe. Casandra has been compliant with medications that are currently prescribed, denies SI/HI, AVH at this current time as well. Update: Dr. Riddle reached out and let this ENGRAVED ROLLER INSPECTOR know that while meeting with this patient, she verbalized that she was not ready to go home and unsure that she would would make it to her first outpatient visit. Location: Depression (Primary Problem) Problem has not changed. Context: lack of support, stressors from children Severity: did not rate/10 with 10 being Best. Duration: weeks. Modifying Factors: Medications, therapy. Associated Symptoms: MOOD:depressed. ANHEDONIA: yes. APPETITE: normal. SLEEP: Sleep/Rest/Relaxation: awake;no problem identified (09/19/211999) poor sleep at this time CONCENTRATION: normal. FATIGUE: increased. RESTLESSNESS: none. SUICIDAL IDEATION: no. SUICIDAL PLAN: no. SUICIDAL INTENT: no. HOMICIDAL IDEATION: no. HALLUCINATIONS: no. DELUSIONS: no. Past,Family, & Social History: [x] : check if no change from initial eval done. BP 96/56 (BP Location: Left arm, Patient Position (BP): Supine) Pulse 84 Temp 98.2 ??F (36.8 ??C) (Oral) Resp 18 Ht 5' 5 (1.651 m) Wt 90.4 kg (199 lb 4.8 oz) SpO2 95% BMI 33.17 kg/m?? Facility-Administered Medications as of 09/20/2021 Medication Dose Frequency Provider Last Rate Last Admin ??? oxyCODONE (ROXICODONE) tablet 5 mg 5 mg every 4 hours PRN Lin Espinal, DO 5 mg at 09/19/212036 ??? hydrOXYzine HCL (ATARAX) tablet 25 mg 25 mg every 6 hours PRN Roland Ballesteros NP 25 mg at 09/20/21 0852 ??? insulin NPH human (HUMULIN N,NOVOLIN N) injection 10 Units 10 Units BID BEFORE meals Anahi Bass, DO 10 Units at 09/20/21 1014 ??? buPROPion HCL (WELLBUTRIN XL) 24 hour tablet 450 mg 450 mg daily Jaida Wright DNP 450 mg at 09/19/21 1231 ??? traZODone (DESYREL) tablet 50 mg 50 mg at bedtime PRN Kyle, Jaida Afua, DNP ??? [COMPLETED] calcium GLUCONATE 2,000 mg in sodium chloride (iso-osmotic) 100 mL IVPB 2,000 mg ONE time only Phoenix Riddle MD Stopped at 09/16/21 1408 ??? [COMPLETED] diphenhydrAMINE (BENADRYL) injection 25 mg 25 mg intra-proc ONE time Phoenix Riddle MD 25 mg at 09/16/21 1100 ??? [COMPLETED] heparin, porcine lock flush (pf) 100 unit/mL injection 500 Units 500 Units ONE timeonly Phoenix Riddle MD 500 Units at 09/16/21 1424 ??? [COMPLETED] heparin, porcine lock flush (pf) 100 unit/mL injection 500 Units 500 Units ONE timeonly Phoenix Riddle MD 500 Units at 09/16/21 1424 ??? [COMPLETED] heparin, porcine (pf) 10 unit/mL IV syringe 20 Units 20 Units ONE time only Phoenix Riddle MD 20 Units at 09/16/21 1423 ??? [COMPLETED] calcium GLUCONATE 2,000 mg in sodium chloride (iso-osmotic) 100 mL IVPB 2,000 mg ONE time only Phoenix Riddle MD Stopped at 09/15/21 1422 ??? [COMPLETED] sodium chloride flush injection 10 mL 10 mL ONE time only Phoenix Riddle MD 10mL at 09/15/21 1426 Followed by ??? [COMPLETED] heparin, porcine (pf) 10 unit/mL IV syringe 20 Units 20 Units ONE time only Phoenix Riddle MD 20 Units at 09/15/21 1427 Followed by ??? [COMPLETED] sodium chloride flush injection 10 mL 10 mL ONE time only Phoenix Riddle MD 10mL at 09/15/21 1428 Followed by ??? [COMPLETED] heparin, porcine lock flush (pf) 100 unit/mL injection 500 Units 500 Units ONE timeonly Phoenix Riddle MD 500 Units at 09/15/21 1428 ??? [COMPLETED] sodium chloride flush injection 20 mL 20 mL ONE time only Phoenix Riddle MD 20mL at 09/15/21 1425 Followed by ??? [COMPLETED] heparin, porcine lock flush (pf) 100 unit/mL injection 500 Units 500 Units ONE timeonly Phoenix Riddle MD 500 Units at 09/15/21 1425 ??? sennosides (SENOKOT) tablet 17.2 mg 17.2 mg BID Juan José Mares MD 17.2 mg at 09/18/21 0852 ??? [COMPLETED] polyethylene glycol (MIRALAX) packet 17 Gram 17 Gram ONE time only Juan José Mares MD 17 Gram at 09/14/21 0101 ??? atorvastatin (LIPITOR) tablet 80 mg 80 mg daily BEDTIME Juan José Mares MD 80 mg at 09/19/21 2036 ??? cetirizine (ZyrTEC) tablet 10 mg 10 mg daily Juan José Mares MD 10 mg at 09/20/21 0847 ??? [COMPLETED] calcium GLUCONATE 2,000 mg in sodium chloride (iso-osmotic) 100 mL IVPB 2,000 mg ONE time only Imelda Mclain MD Stopped at 09/14/21 1409 ??? pantoprazole (PROTONIX) tablet 40 mg 40 mg daily BEFORE breakfast Imelda Mclain MD 40 mgat 09/20/21 0846 ??? dextrose 50% (D50) syringe 12.5 Gram 12.5 Gram see admin instructions Imelda Mclain MD ??? dextrose 50% (D50) syringe 25 Gram 25 Gram see admin instructions Imelda Mclain MD ??? glucagon human recombinant (GLUCAGEN) 1 mg/mL injection 1 mg 1 mg see admin instructions Imelda Mclain MD ??? diphenhydrAMINE-zinc acetate (BENADRYL EXTRA STRENGTH) 2-0.1 % topical cream ABBED Erick Venegas MD ??? [COMPLETED] heparin, porcine (pf) 10 unit/mL IV syringe 20 Units 20 Units ONE time only Phoenix Riddle MD 20 Units at 09/14/21 1215 ??? [COMPLETED] heparin, porcine lock flush (pf) 100 unit/mL injection 500 Units 500 Units ONE timeonly Phoenix Riddle MD 500 Units at 09/14/21 1400 ??? [COMPLETED] heparin, porcine lock flush (pf) 100 unit/mL injection 500 Units 500 Units ONE timeonly Phoenix Riddle MD 500 Units at 09/14/21 1400 ??? [COMPLETED] sodium chloride 0.9% bolus solution 500 mL 500 mL ONE time only Imelda Mclain MD Stopped at 09/14/21 1315 ??? [COMPLETED] calcium GLUCONATE 1,000 mg in sodium chloride (iso-osmotic) 50 mL IVPB 1,000 mg intra-proc ONE time Phoenix Riddle MD Stopped at 09/14/21 1458 ??? dextrose 5% - sodium chloride 0.9% infusion see admin instructions Anahi Bass, DO ??? insulin lispro (HumaLOG) injection 0-9 Units 0-9 Units TID WITH meals Anahi Bass, DO 3 Units at 09/20/21 1013 ??? insulin lispro (HumaLOG) injection 0-4 Units 0-4 Units daily BEDTIME Anahi Bass, DO 2 Units at 09/17/21 2248 ??? [COMPLETED] calcium GLUCONATE 2,000 mg in sodium chloride (iso-osmotic) 100 mL IVPB 2,000 mg ONE time only Imelda Mclain MD Stopped at 09/14/21 1839 ??? [COMPLETED] morphine 4 mg/mL injection 4 mg 4 mg ONE time only Antwon Coyle MD 4 mg at 09/13/212027 ??? [COMPLETED] ondansetron (ZOFRAN) 4 mg/2 mL injection 4 mg 4 mg ONE time only Antwon Coyle MD 4 mg at 09/13/212027 ??? [COMPLETED] lactated ringers bolus solution 1,000 mL 1,000 mL ONE time only Antwon Coyle MD Stopped at 09/13/21 2145 ??? naloxone (NARCAN) 0.4 mg/mL injection 0.1 mg 0.1 mg see admin instructions Sharri Jones NP ??? enoxaparin (LOVENOX) injection 40 mg 40 mg every 24 hours Sharri Jones NP 40 mg at 09/20/21 0846 ??? [COMPLETED] HYDROmorphone (DILAUDID) 2 mg/mL injection 0.5 mg 0.5 mg ONE time only Antwon Coyle MD 0.5 mg at 09/13/21 2214 ??? [COMPLETED] iopamidoL (ISOVUE-300) 61% injection (drawn from multi-use bulk pack) 120 mL 120 mLintra-proc ONE time Ceasar Grayson MD 120 mL at 09/13/213 ??? [COMPLETED] sodium chloride flush injection 10 mL 10 mL ONE time only Ceasar Grayson MD 10 mL at 09/13/215 ??? [COMPLETED] HYDROmorphone (DILAUDID) 2 mg/mL injection 0.5 mg 0.5 mg ONE time only Antwon Coyle MD 0.5 mg at 09/13/21 2311 ??? [COMPLETED] ondansetron (ZOFRAN) 4 mg/2 mL injection 4 mg 4 mg ONE time only Antwon Coyle MD 4 mg at 09/13/21 2318 ??? omega-3 acid ethyl esters (LOVAZA) capsule 2 Gram 2 Gram BID WITH meals Juan José Mares MD 2 Gram at 09/20/21 0848 ??? citalopram (CeleXA) tablet 40 mg 40 mg daily Juan José Mares MD 40 mg at 09/20/21 0855 ??? fenofibrate (LOFIBRA) tablet 160 mg 160 mg daily Juan José Mares MD 160 mg at 09/20/21 0850 ??? levothyroxine (SYNTHROID) tablet 200 mcg 200 mcg daily EARLY Juan José Mares MD 200 mcg at 09/20/21 0441 ??? traZODone (DESYREL) tablet 100 mg 100 mg daily BEDTIME Juan José Mares MD 100 mg at 09/19/212036 OBJECTIVE: ROS: Constitutional: Negative for fever and chills. Skin: Negative for rash and wound. GI: Negative for nausea and vomiting. Musculoskeletal: Negative for myalgias and back pain. Neurological: Negative but refer to psychiatric symptoms. All other were Negative. Mental Status Evaluation: Appearance: age appropriate Behavior: cooperative with exam Speech: normal pitch and normal volume Mood: ??anxious and depressed Affect: Constricted Thought Process: within normal limits Thought Content: appropriate responses to questions asked and no SI, HI, hallucinations, delusions Sensorium: person, place, situation and time/date Cognition: grossly intact Insight &??Judgement:??fair Data Base: I have reviewed all labs and pertinent ones are noted below. Recent Results (from the past 24 hour(s)) POC GLUCOSE Collection Time: 09/19/21 12:53 PM Result Value Ref Range GLUCOSE POC 167 (H) 74 - 99 mg/dL SPECIMEN SOURCE, GLUCOSE POC Whole Blood COMMENT, GLU POC Notified RN/MD POC GLUCOSE Collection Time: 09/19/21 6:17 PM Result Value Ref Range GLUCOSE POC 248 (H) 74 - 99 mg/dL SPECIMEN SOURCE, GLUCOSE POC Whole Blood COMMENT, GLU POC Notified RN/MD POC GLUCOSE Collection Time: 09/19/21 8:33 PM Result Value Ref Range GLUCOSE POC 171 (H) 74 - 99 mg/dL SPECIMEN SOURCE, GLUCOSE POC Whole Blood COMMENT, GLU POC Notified RN/MD POC GLUCOSE Collection Time: 09/20/21 10:09 AM Result Value Ref Range GLUCOSE POC 183 (H) 74 - 99 mg/dL SPECIMEN SOURCE, GLUCOSE POC Whole Blood ASSESSMENT: PRIMARY DIAGNOSIS & PLAN: Patient Active Hospital Problem List: Severe episode of recurrent major depressive disorder, without psychotic features (09/17/2021) POA: Unknown Assessment: Still reports having depression, no SI/HI at this time or since arriving to the hospital setting. Plan: Continue Wellbutrin XL 450mg daily and Celexa 40mg daily PLAN: Support given. 1) Pt information, assessment, plan discussed with Dr. Maddox. 2) Continue Wellbutrin XL 450mg daily and Celexa 40mg daily 3) Patient and demanding to leave and both feel that she will be safe at home at discharge, no current SI, plans, or intent. Staffed with Dr. Maddox. Patient may be discharged home with . Will not make medication adjustment as planned. Continue Celexa 40mg daily, Wellbutrin XL 450mg daily. Safety plan completed yesterday. IOP referral in chart for patient. Discussed the benefits/risks/alternatives of treatment plan, including no treatment. Current medications reviewed. Discussed purpose, action, and potential side effects of medications, and the patient has demonstrated their understanding of these side effects by engaging in meaningful conversation and asking appropriate questions about them. Patient informed of importance of compliance with chosen options. Instruction for management/treatment and/or follow up. Provided education about conditionand risk factor reduction. Discussed bio/psycho/social aspects of patient's care. Coordination with: [] Nursing [] Bingo Floater [] Social Work [x]Physician []Family Patient is tolerating the current medications and continues to consent to treatment plan. I discussed severity/complexity of her illness which is high. Roland Ballesteros, PMHNP Associated attestation - Karissa Maddox MD - 09/21/2021 7:36 PM CDT I reviewed the assessment. The recommendations and plan were discussed. I agree with the major elements of this note. * Flores Morales MD - 09/20/2021 10:09 AM CDT CCM ATTENDING DAILY PROGRESS NOTE Brief HPI: 45W, admitted on 09/13/2021, presented with for suicidal ideation. Her plan was to overdose on insulin and not wake up. Has had ideation in the past but no plan. PMH: familial chylomicronemia, recurrent pancreatitis, plasmapharesis q2 weeks, hypothyroidism, PCOS, MDD, PTSD. Interval History: No acute overnight events. Objective: Current vital signs Blood pressure 118/71, pulse 83, temperature 98.2 ??F (36.8 ??C), temperature source Oral, resp. rate 18, height 5' 5 (1.651 m), weight 90.4 kg (199 lb 4.8 oz), SpO2 96 %, not currently . 24 hour BP and temperature range BP: (94-118)/(54-71) Temp (24hrs), Av.2 ??F (36.8 ??C), Min:98.1 ??F (36.7 ??C), Max:98.4 ??F (36.9 ??C) Input/Output 09/19 699 - 09/20 1858 In: 1290 [P.O.:1290] Out: - Physical Exam: Body mass index is 33.17 kg/m??. ?? Gen: examined while lying in bed, in no acute distress ?? Neuro: alert, oriented x3, non-focal ?? HEENT: PERRL, no pallor, anicteric ?? Neck: supple ?? Heart: S1S2, regular, no murmurs ?? Lungs: bilateral air entry equal, no adventitious sounds ?? Abdomen: soft, non-distended, non-tender, normoactive BS x4 ?? Extremities: no pedal edema, distal pulses palpable ?? Skin: warm, dry, no lesions Assessment/Plan: 1. Suicide ideation with plan; multiple prior SI admissions; on suicide precautions as inpatient. 2. MDD - bupropion XL, citalopram, trazodone. Psych cleared patient for discharge home with follow-up. 3. Pain control - staggered meds. 4. Epigastric pain - RESOVLED. ?Pancreatitis but no evidence of pancreatitis on CT or labs. 5. Familial chylomicronemia: on scheduled plasmapharesis. TGL (09/17) 336. Statin, fenofibrate, [place]-3. 6. Recurrent pancreatitis: no active inflammation on CT at this time. 7. Nutrition: low-fat diet. 8. Pseudohyponatremia due to chylomicronemia. 9. Insulin dependent DM: HbA1c 8.9% (07/2021); NPH bid with SSI. 10. Hypothyroidism: levothyroxine. 11. S/P hysterectomy: no urine hCG done. 12. Prophylaxis: DVT - enoxaparin; GI - PPI (CHIEF INFORMATION OFFICER med). Family Communication: patient & updated by [facility] resident. EM-2. Active Hospital Problems Diagnosis ??? Severe episode of recurrent major depressive disorder, without psychotic features ??? Diabetes mellitus type I ??? Suicide ideation ??? Hyponatremia Resolved Hospital Problems No resolved problems to display. I have discussed the history, physical findings, laboratory findings, AND assessment and plan with the resident and the patient's RN and RT, as applicable. Please consider this note in addition to the resident's note from today (as applicable). * Imelda Mclain MD - 09/20/2021 7:22 AM CDT CRITICAL CARE MEDICINE DAILY PROGRESS NOTE Reason for ICU admission: SI in setting of Hypertriglyceridemia ICU Timeline: Casandra Jones is a 45 y.o. female admitted 09/13/2021 with familial chylomicronemia, causing chronic recurrent pancreatitis 2-triglyceridemia, patient receives weekly plasmapheresis as outpatient through [facility] and follows up with Dr. Gates, insulin-dependent diabetes mellitus, GERD,PTSD, depression, hypothyroidism, PCOS. Patient presented to the ED on 09/16 2021 with suicidal ideation with a plan to overdose on her insulin. ?? Admitted 09/13/2021 ?? S/p plasma exchange 09/14/2021 ?? 2nd Plasma exchange 09/15/2021 ?? 3rd Plasma Exchange 09/16/2021 ?? Medically clear for transfer: 09/18/2021 Active Hospital Problems Diagnosis ??? Severe episode of recurrent major depressive disorder, without psychotic features ??? Diabetes mellitus type I ??? Suicide ideation ??? Hyponatremia Resolved Hospital Problems No resolved problems to display. Assessment and Plan: Neuro/Psych: ?? Suicidal Ideation with Plan 1. [facility] consulted- evaluated patient 2. Suicide watch- sitter 3. Increased Wellbutrin to 450 mg daily and change to XL for depression. 4. Continue Celexa 40 mg daily for depression, anxiety. 5. Continue Trazodone 100 mg nightly for insomnia. 6. Trazodone 50 mg PRN insomnia. 7. Hydroxyzine 25 mg Q 6 PRN anxiety. 8. Plan is to discharge home with a safety plan 9. Psych following 10. Continue suicide precautions, 1:1 sitter. ?? Mood Disorder/MDD/PTSD/anxiety 1. Continue CHIEF INFORMATION OFFICER citalopram 40 mg daily 2. Continue CHIEF INFORMATION OFFICER bupropion 150 mg twice daily 3. Continue CHIEF INFORMATION OFFICER trazodone 100 mg daily at bedtime ?? Pain control 1. Tylenol 2. Oxy 5 mg QID Cardiovascular/Fluids: ?? GAYATHRI Pulmonary: ?? GAYATHRI ?? Allergies 1. ceterizine GI/NUT: ?? 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 S/p Therapeutic Plasmapheresis x3 2. Dr. Riddle following the patient: s/p Plasma exchange x3 3. Continue CHIEF INFORMATION OFFICER Rosuvastatin 4. Continue CHIEF INFORMATION OFFICER Fenofibrate 5. Pain control PRN meds ?? H/o recurrent Chronic pancreatitis - Not an acute issue ?? CT abdomen negative for acute pancreatitis, lipase normal ?? 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 GERD 1. Protonix ?? Diabetic Diet: advance as tolerated- low fat ?? Nutrition: Current Diet and/or Nutritional Supplementation ordered: Low fat, diabetic diet. ?? Renal/LYTES/Acid-Base: ?? GAYATHRI ?? BMP Q72 hours with lab holidays Infectious Disease: ?? GAYATHRI Hem/Onc/Coag: ?? Anemia: with Hb of 9.6 ?? lovenox Endocrine: ?? Uncontrolled hyperglycemia in IDDM; 08/24 A1c 8.9 : glucose still not well controlled. ?? Added NPH 12 Units BID ?? Insulin ACHS ?? Hypoglycemia pathway ?? Hypothyroidism 1. CHIEF INFORMATION OFFICER Synthroid Musculoskeletal/Skin: ?? GAYATHRI DVT prophylaxis: Lovenox 40 GI prophylexis:Protnix Disposition: BH, pt medically cleared Code Status:Full code Lines: two ports, one in each subclavian veins, 2PIVs Subjective: 24 hour events- no acute events, she is getting gout of the bed. No SI/HI, feels that the energy level is much better. Objective: Body mass index is 33.17 kg/m??. Current vital signs Blood pressure 104/61, pulse 78, temperature 98.1 ??F (36.7 ??C), temperature source Oral, resp. rate 16, height 5' 5 (1.651 m), weight 90.4 kg (199 lb 4.8 oz), SpO2 96 %, not currently . 24 hour BP and temperature range BP: (92-104)/(50-62) Temp (24hrs), Av.2 ??F (36.8 ??C), Min:97.9 ??F (36.6 ??C), Max:98.4 ??F (36.9 ??C) Input/Output 09/18 1899 - 09/20 0559 In: 840 [P.O.:840] Out: - Physical Exam ?? Gen:well operating female in no acute distress. ?? Neuro: A/Ox4, ?? HEENT: At/NC,PERRLA, EOMI, no focal neurological deficit ?? Cardiac: RRR, S1-S2 audible, no MRG ?? Pulm: Clear to auscultation bilaterally ?? Abdomen: no rebound, normal bowel sounds,negative mohit signs ?? Skin: Warm, dry, free of rashes ?? Extremities: No edema bilaterally Data Review: BMP: Recent Labs 09/18/21 0531 09/19/21 0411 GLUCOSE 221* 148* BUN 6 6 CREAT 0.63 0.63 NA 141 141 K 3.7 4.0 CL 102 102 CO2 29 29 ANIONGAP 10 10 estimated creatinine clearance is 125.3 mL/min (by C-G formula based on SCr of 0.63 mg/dL). LFTs: Recent Labs 09/18/21 0531 09/19/21 0411 ALKPHOS 40 45 ALT 10 18 AST 15 26 BILITOTAL 0.2* 0.2* ALBUMIN 4.5 4.5 CBC: Recent Labs 09/18/21 0531 09/19/21 0411 WBC 5.1 5.2 HGB 9.6* 9.9* HCT 31.5* 31.5* PLT 187 187 MCV 95.7 94.3 Coagulation: No results for input(s): PT, INR, APTT in the last 72 hours. ABG: Lab Results Component Value Date PHARTERIAL 7.28 (L) 10/29/2018 WGR4VYF 42 10/29/2018 PO2ART 97 10/29/2018 PDA6ATI 20 (L) 10/29/2018 BASEEXCESS -6.4 (L) 10/29/2018 Central VBG: No results found for: PHMIXEDVEN, ZQ3BGGPPLY, KTH0MDAARU, LAK7VKNEE, GS5LDUN Lactic acid: Lab Results Component Value Date/Time LACTATE 0.7 12/27/2020 04:20 AM LACTATE 1.9 02/16/2020 12:45 AM LACTATE 1.8 02/02/2019 01:37 AM LACTATE 1.1 07/31/2018 03:20 AM * Jud Garcia RN - 09/20/2021 5:55 AM CDT End of Shift Note: No events overnight. Neuro: GCS 15; follows commnads; purposeful movements; RASS 0 to -1 PERRLA 2 Resp: Clear; room air CV: NSR 70s-80s; 2/2 pulses; ambulates GI: No BM overnight (pt states that last one was 09/19 AM); low fat diet Endocrine: ACHS accuchecks; insulin orders : voiding with BRP Skin: no acute issues at this time * Tana Azul RN - 09/19/2021 6:33 PM CDT Intake: Spoke with patient and worked on safety plan for pt to use when discharged to home. Pt currently denies thoughts to harm self and is interested in following up with outpatient resources for behavioral health once discharged. Spoke with pt's who voices no safety concerns at this timeand discussed safety plan. Referrals added to pt's discharge. Nan Azul RN [id number] * Imelda Mclain MD - 09/19/2021 6:00 PM CDT Call patient's Mr. Valdez, and gave him update regarding his . Answered all the questions. * Roland Ballesteros NP - 09/19/2021 3:17 PM CDT Chief Complaint: Feeling better Detailed Interval History: Casandra was seen as a follow up from psychiatry this morning, she reports that she is feeling better today, less depressed at this time. However, anxiety is still substantial currently, currently rates anxiety a 6/10 with 10 being the most severe. Casandra is still tearful at times and appears to be somewhat depressed currently. No psychosis symptoms at this time. No SI/HI as well. Location: depression (Primary Problem) Problem has improved. Context: lack of support and family problems Severity:5/10 with 10 being Best. Duration:weeks. Modifying Factors:medications, Therapy . Associated Symptoms: MOOD:anxious and depressed. ANHEDONIA: Yes. APPETITE: normal. SLEEP: Sleep/Rest/Relaxation: awake;no problem identified (09/18/211999) Good CONCENTRATION: normal. FATIGUE: increased. RESTLESSNESS: none. SUICIDAL IDEATION: no. SUICIDAL PLAN: no. SUICIDAL INTENT: no. HOMICIDAL IDEATION: no. HALLUCINATIONS: no. DELUSIONS: no. Past,Family, & Social History: [x] : check if no change from initial eval done. BP 97/62 Pulse 82 Temp 97.9 ??F (36.6 ??C) (Oral) Resp (!) 5 Ht 5' 5 (1.651 m) Wt 90.4 kg (199 lb 4.8 oz) SpO2 97% BMI 33.17 kg/m?? Facility-Administered Medications as of 09/19/2021 Medication Dose Frequency Provider Last Rate Last Admin ??? oxyCODONE (ROXICODONE) tablet 5 mg 5 mg every 4 hours PRN Lin Espinal, DO ??? insulin NPH human (HUMULIN N,NOVOLIN N) injection 10 Units 10 Units BID BEFORE meals Anahi Bass, DO 10 Units at 09/19/21 0847 ??? buPROPion HCL (WELLBUTRIN XL) 24 hour tablet 450 mg 450 mg daily Jaida Wright DNP 450 mg at 09/19/21 1231 ??? hydrOXYzine HCL (ATARAX) tablet 25 mg 25 mg every 6 hours PRN Jaida Wright DNP ??? traZODone (DESYREL) tablet 50 mg 50 mg at bedtime PRN Jaida Wright DNP ??? [COMPLETED] calcium GLUCONATE 2,000 mg in sodium chloride (iso-osmotic) 100 mL IVPB 2,000 mg ONE time only Phoenix Riddle MD Stopped at 09/16/21 1408 ??? [COMPLETED] diphenhydrAMINE (BENADRYL) injection 25 mg 25 mg intra-proc ONE time Phoenix Riddle MD 25 mg at 09/16/21 1100 ??? [COMPLETED] heparin, porcine lock flush (pf) 100 unit/mL injection 500 Units 500 Units ONE timeonly Phoenix Riddle MD 500 Units at 09/16/21 1424 ??? [COMPLETED] heparin, porcine lock flush (pf) 100 unit/mL injection 500 Units 500 Units ONE timeonly Phoenix Riddle MD 500 Units at 09/16/21 1424 ??? [COMPLETED] heparin, porcine (pf) 10 unit/mL IV syringe 20 Units 20 Units ONE time only Phoenix Riddle MD 20 Units at 09/16/21 1423 ??? [COMPLETED] calcium GLUCONATE 2,000 mg in sodium chloride (iso-osmotic) 100 mL IVPB 2,000 mg ONE time only Phoenix Riddle MD Stopped at 09/15/21 1422 ??? [COMPLETED] sodium chloride flush injection 10 mL 10 mL ONE time only Phoenix Riddle MD 10mL at 09/15/21 1426 Followed by ??? [COMPLETED] heparin, porcine (pf) 10 unit/mL IV syringe 20 Units 20 Units ONE time only Phoenix Riddle MD 20 Units at 09/15/21 1427 Followed by ??? [COMPLETED] sodium chloride flush injection 10 mL 10 mL ONE time only Phoenix Riddle MD 10mL at 09/15/21 1428 Followed by ??? [COMPLETED] heparin, porcine lock flush (pf) 100 unit/mL injection 500 Units 500 Units ONE timeonly Phoenix Riddle MD 500 Units at 09/15/21 1428 ??? [COMPLETED] sodium chloride flush injection 20 mL 20 mL ONE time only Phoenix Riddle MD 20mL at 09/15/21 1425 Followed by ??? [COMPLETED] heparin, porcine lock flush (pf) 100 unit/mL injection 500 Units 500 Units ONE timeonly Phoenix Riddle MD 500 Units at 09/15/21 1425 ??? sennosides (SENOKOT) tablet 17.2 mg 17.2 mg BID Juan José Mares MD 17.2 mg at 09/18/21 0852 ??? [COMPLETED] polyethylene glycol (MIRALAX) packet 17 Gram 17 Gram ONE time only Juan José Mares MD 17 Gram at 09/14/21 0101 ??? atorvastatin (LIPITOR) tablet 80 mg 80 mg daily BEDTIME Juan José Mares MD 80 mg at 09/18/21 2230 ??? cetirizine (ZyrTEC) tablet 10 mg 10 mg daily Juan José Mares MD 10 mg at 09/19/21 0829 ??? [COMPLETED] calcium GLUCONATE 2,000 mg in sodium chloride (iso-osmotic) 100 mL IVPB 2,000 mg ONE time only Imelda Mclain MD Stopped at 09/14/21 1409 ??? pantoprazole (PROTONIX) tablet 40 mg 40 mg daily BEFORE breakfast Imelda Mclain MD 40 mgat 09/19/21 0829 ??? dextrose 50% (D50) syringe 12.5 Gram 12.5 Gram see admin instructions Imelda Mclain MD ??? dextrose 50% (D50) syringe 25 Gram 25 Gram see admin instructions Imelda Mclain MD ??? glucagon human recombinant (GLUCAGEN) 1 mg/mL injection 1 mg 1 mg see admin instructions Imelda Mclain MD ??? diphenhydrAMINE-zinc acetate (BENADRYL EXTRA STRENGTH) 2-0.1 % topical cream QID Erick Venegas MD ??? [COMPLETED] heparin, porcine (pf) 10 unit/mL IV syringe 20 Units 20 Units ONE time only Phoenix Riddle MD 20 Units at 09/14/21 1215 ??? [COMPLETED] heparin, porcine lock flush (pf) 100 unit/mL injection 500 Units 500 Units ONE timeonly Phoenix Riddle MD 500 Units at 09/14/21 1400 ??? [COMPLETED] heparin, porcine lock flush (pf) 100 unit/mL injection 500 Units 500 Units ONE timeonly Phoenix Riddle MD 500 Units at 09/14/21 1400 ??? [COMPLETED] sodium chloride 0.9% bolus solution 500 mL 500 mL ONE time only Imelda Mclain MD Stopped at 09/14/21 1315 ??? [COMPLETED] calcium GLUCONATE 1,000 mg in sodium chloride (iso-osmotic) 50 mL IVPB 1,000 mg intra-proc ONE time Phoenix Riddle MD Stopped at 09/14/21 1458 ??? dextrose 5% - sodium chloride 0.9% infusion see admin instructions Anahi Bass DO ??? insulin lispro (HumaLOG) injection 0-9 Units 0-9 Units TID WITH meals Anahi Bass, DO 2 Units at 09/19/21 1300 ??? insulin lispro (HumaLOG) injection 0-4 Units 0-4 Units daily BEDTIME Anahi Bass, DO 2 Units at 09/17/21 2248 ??? [COMPLETED] calcium GLUCONATE 2,000 mg in sodium chloride (iso-osmotic) 100 mL IVPB 2,000 mg ONE time only Imelda Mclain MD Stopped at 09/14/21 1839 ??? [COMPLETED] morphine 4 mg/mL injection 4 mg 4 mg ONE time only Antwon Coyle MD 4 mg at 09/13/212027 ??? [COMPLETED] ondansetron (ZOFRAN) 4 mg/2 mL injection 4 mg 4 mg ONE time only Antwon Coyle MD 4 mg at 09/13/212027 ??? [COMPLETED] lactated ringers bolus solution 1,000 mL 1,000 mL ONE time only Antwon Coyle MD Stopped at 09/13/21 2145 ??? naloxone (NARCAN) 0.4 mg/mL injection 0.1 mg 0.1 mg see admin instructions Sharri Jones NP ??? enoxaparin (LOVENOX) injection 40 mg 40 mg every 24 hours Sharri Jones NP 40 mg at 09/19/21 0828 ??? [COMPLETED] HYDROmorphone (DILAUDID) 2 mg/mL injection 0.5 mg 0.5 mg ONE time only Antwon Coyle MD 0.5 mg at 09/13/214 ??? [COMPLETED] iopamidoL (ISOVUE-300) 61% injection (drawn from multi-use bulk pack) 120 mL 120 mLintra-proc ONE time Ceasar Grayson MD 120 mL at 09/13/212242 ??? [COMPLETED] sodium chloride flush injection 10 mL 10 mL ONE time only Ceasar Grayson MD 10 mL at 09/13/212244 ??? [COMPLETED] HYDROmorphone (DILAUDID) 2 mg/mL injection 0.5 mg 0.5 mg ONE time only Antwon Coyle MD 0.5 mg at 09/13/21 231 ??? [COMPLETED] ondansetron (ZOFRAN) 4 mg/2 mL injection 4 mg 4 mg ONE time only Antwon Coyle MD 4 mg at 09/13/21 2318 ??? omega-3 acid ethyl esters (LOVAZA) capsule 2 Gram 2 Gram BID WITH meals Juan José Mares MD 2 Gram at 09/19/21 0829 ??? citalopram (CeleXA) tablet 40 mg 40 mg daily Juan José Mares MD 40 mg at 09/19/21 0829 ??? fenofibrate (LOFIBRA) tablet 160 mg 160 mg daily Juan José Mares MD 160 mg at 09/19/21 0830 ??? levothyroxine (SYNTHROID) tablet 200 mcg 200 mcg daily EARLY Juan José Mares MD 200 mcg at 09/19/21 0416 ??? traZODone (DESYREL) tablet 100 mg 100 mg daily BEDTIME Juan José Mares MD 100 mg at 09/18/21 2152 OBJECTIVE: ROS: Constitutional: Negative for fever and chills. Skin: Negative for rash and wound. GI: Negative for nausea and vomiting. Musculoskeletal: Negative for myalgias and back pain. Neurological: Negative but refer to psychiatric symptoms. All other were Negative. Mental Status Evaluation: Appearance: age appropriate Behavior: cooperative with exam Speech: normal pitch and normal volume Mood: anxious and depressed Affect: blunted Thought Process: within normal limits Thought Content: appropriate responses to questions asked and no SI, HI, hallucinations, delusions Sensorium: person, place, situation and time/date Cognition: grossly intact Insight & Judgement: limited Data Base: I have reviewed all labs and pertinent ones are noted below. Recent Results (from the past 24 hour(s)) POC GLUCOSE Collection Time: 09/18/21 5:55 PM Result Value Ref Range GLUCOSE POC 144 (H) 74 - 99 mg/dL SPECIMEN SOURCE, GLUCOSE POC Whole Blood POC GLUCOSE Collection Time: 09/18/21 9:56 PM Result Value Ref Range GLUCOSE POC 170 (H) 74 - 99 mg/dL SPECIMEN SOURCE, GLUCOSE POC Whole Blood CBC WITH DIFFERENTIAL Collection Time: 09/19/21 4:11 AM Result Value Ref Range WBC 5.2 4.0 - 9.8 K/uL RBC 3.34 (L) 3.90 - 4.90 M/uL HEMOGLOBIN 9.9 (L) 11.8 - 14.8 g/dL HEMATOCRIT 31.5 (L) 35.5 - 44.0 % MCV 94.3 82.0 - 99.0 fL MCH 29.6 27.2 - 32.6 pg MCHC 31.4 (L) 31.5 - 35.5 g/dL RDW 15.9 (H) 11.5 - 14.5 % RDW-STDEV 54.3 (H) 37.1 - 48.7 fL PLATELETS 187 140 - 350 K/uL MPV 9.6 9.3 - 12.4 fL NEUTROPHILS 63 % LYMPHOCYTES 29 % MONOCYTES 6 % EOSINOPHILS 1 % BASOPHILS 0 % IMMATURE GRANULOCYTES 1 % NEUTROPHIL ABSOLUTE 3.28 1.90 - 7.00 K/uL LYMPHOCYTE ABSOLUTE 1.52 0.70 - 4.50 K/uL MONOCYTE ABSOLUTE 0.31 0.10 - 1.30 K/uL EOSINOPHIL ABSOLUTE 0.06 0.00 - 0.70 K/uL BASOPHILS ABSOLUTE 0.02 0.00 - 0.20 K/uL IMMATURE GRANULOCYTES ABSOLUTE 0.04 (H) 0.00 - 0.03 K/uL COMPREHENSIVE METABOLIC PANEL Collection Time: 09/19/21 4:11 AM Result Value Ref Range SODIUM 141 136 - 145 mmol/L POTASSIUM 4.0 3.5 - 5.0 mmol/L CHLORIDE 102 98 - 107 mmol/L CO2 29 22 - 29 mmol/L CALCIUM 8.8 8.6 - 10.2 mg/dL BUN 6 6 - 20 mg/dL CREATININE 0.63 0.51 - 0.95 mg/dL GLUCOSE 148 (H) 74 - 99 mg/dL TOTAL PROTEIN 6.2 (L) 6.7 - 8.6 g/dL ALBUMIN 4.5 3.5 - 5.2 g/dL BILIRUBIN TOTAL 0.2 (L) 0.3 - 1.2 mg/dL ALKALINE PHOSPHATASE 45 35 - 104 U/L AST 26 <33 U/L ALT 18 <34 U/L GFR >60 >=60 mL/min/1.73 sq meter ANION GAP 10 8 - 16 mmol/L POC GLUCOSE Collection Time: 09/19/21 8:46 AM Result Value Ref Range GLUCOSE POC 151 (H) 74 - 99 mg/dL SPECIMEN SOURCE, GLUCOSE POC Whole Blood POC GLUCOSE Collection Time: 09/19/21 12:53 PM Result Value Ref Range GLUCOSE POC 167 (H) 74 - 99 mg/dL SPECIMEN SOURCE, GLUCOSE POC Whole Blood COMMENT, GLU POC Notified RN/MD ASSESSMENT: PRIMARY DIAGNOSIS & PLAN: Patient Active Hospital Problem List: Severe episode of recurrent major depressive disorder, without psychotic features (09/17/2021) POA: Unknown Assessment: Still endorses depression at this time and anxiety, depression has subsided some. No SI/HI at this time. Plan: Start Hydroxyzine 25mg Q 6 PRN for anxiety PLAN: Support given. 1) Pt information, assessment, plan discussed with Dr. Maddox. 2) Continue current medication regiment 3) Pt does need inpatient behavioral health admission following hospitalization. 4) Discontinue 1:1 and suicide precautions at this time. Discussed the benefits/risks/alternatives of treatment plan, including no treatment. Current medications reviewed. Discussed purpose, action, and potential side effects of medications, and the patient has demonstrated their understanding of these side effects by engaging in meaningful conversation and asking appropriate questions about them. Patient informed of importance of compliance with chosen options. Instruction for management/treatment and/or follow up. Provided education about conditionand risk factor reduction. Discussed bio/psycho/social aspects of patient's care. Coordination with: [] Nursing [] Bingo Floater [] Social Work [x]Physician []Family Patient is tolerating the current medications and continues to consent to treatment plan. I discussed severity/complexity of her illness which is high. Roland Ballesteros, PMHNP Associated attestation - Karissa Maddox MD - 09/19/2021 8:45 PM CDT I reviewed the assessment. The recommendations and plan were discussed. I agree with the major elements of this note. 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 Has hadideation in the past but no plan. PMH - Familial CM; recurrent pancreatitis on plasmapharesis q2 weeks; Hypothyroidism and PCOS; PTSD; MDD 24 hr events - plasmapharesis done; improved Sx; On insulin SQ Physical Exam: Body mass index is 33.17 kg/m??. Gen: no distress Neuro: awake; oriented X 4; affect - monotonous; sad CV: S1; S2; regular rhythm Resp: equal air entry bilaterally, no adventitious sounds GI: Soft, NT, BS +ve Ext: Bipedal edema no; Skin: No rashes on exposed surfaces; Assessment/Plan: 1. Suicide ideation with plan; multiple prior admissions; will need inpatient admission; continue suicide precautions. 2. MDD - bupropion XL, citalopram, trazodone. Psych managing. 3. Pain control - staggered meds 4. Epigastric pain - RESOVLED. ? Pancreatitis but no evidence of pancreatitis on CT or labs. 5. HyperTAG - continue home meds; on scheduled plasmapharesis. TGL (09/17) 336. Statin, fenofibrate,[place]-3. 6. Recurrent pancreatitis - based on hx. No active inflammation on CT at this time. 7. GERD - PPI 8. Nutrition - advance diet as tolerated - low fat 9. Pseudohyponatremia - 2/2 hyper TAG 10. Insulin dependent DM - A1C 8.9 (07/2021); NPH bid with SSI. 11. Hypothyroidism - continue levothyroxine. 12. S/P hysterectomy -- so no urine preg test needed. 13. PPx - DVT PPx - Enoxaparin; GI PPx - proton pump inhibitor Family Communication: patient updated EM-1 Active Hospital Problems Diagnosis ??? Severe episode of recurrent major depressive disorder, without psychotic features ??? Diabetes mellitus type I ??? Suicide ideation ??? Hyponatremia Resolved Hospital Problems No resolved problems to display. I have discussed the history, physical findings, laboratory findings, AND assessment and plan with the resident and the patient's RN and RT, as applicable. Please consider this note in addition to the resident's note from today (as applicable). * Imelda Mclain MD - 09/19/2021 10:46 AM CDT CRITICAL CARE MEDICINE DAILY PROGRESS NOTE Reason for ICU admission: SI in setting of Hypertriglyceridemia ICU Timeline: Casandra Jones is a 45 y.o. female admitted 09/13/2021 with familial chylomicronemia, causing chronic recurrent pancreatitis 2-triglyceridemia, patient receives weekly plasmapheresis as outpatient through [facility] and follows up with Dr. Gates, insulin-dependent diabetes mellitus, GERD,PTSD, depression, hypothyroidism, PCOS. Patient presented to the ED on 09/16 2021 with suicidal ideation with a plan to overdose on her insulin. ?? Admitted 09/13/2021 ?? S/p plasma exchange 09/14/2021 ?? 2nd Plasma exchange 09/15/2021 ?? 3rd Plasma Exchange 09/16/2021 ?? Medically clear for transfer: 09/18/2021 Active Hospital Problems Diagnosis ??? Severe episode of recurrent major depressive disorder, without psychotic features ??? Diabetes mellitus type I ??? Suicide ideation ??? Hyponatremia Resolved Hospital Problems No resolved problems to display. Assessment and Plan: Neuro/Psych: ?? Suicidal Ideation with Plan 1. U consulted- evaluated patient 2. Suicide watch- sitter 3. Increased Wellbutrin to 450 mg daily and change to XL for depression. 4. Continue Celexa 40 mg daily for depression, anxiety. 5. Continue Trazodone 100 mg nightly for insomnia. 6. Trazodone 50 mg PRN insomnia. 7. Hydroxyzine 25 mg Q 6 PRN anxiety. 8. Plan to admit to inpatient Behavioral Health. She would require 5W, but this unit is currently unavailable. 9. Psych following 10. Continue suicide precautions, 1:1 sitter. ?? Mood Disorder/MDD/PTSD/anxiety 1. Continue CHIEF INFORMATION OFFICER citalopram 40 mg daily 2. Continue CHIEF INFORMATION OFFICER bupropion 150 mg twice daily 3. Continue CHIEF INFORMATION OFFICER trazodone 100 mg daily at bedtime ?? Pain control 1. Tylenol 2. Dilaudid for severe pain for pain >7 3. Oxy 5 mg QID 4. Oxy for pain score <7, every 6 hours scheduled Cardiovascular/Fluids: ?? GAYATHRI Pulmonary: ?? GAYATHRI ?? Allergies 1. ceterizine GI/NUT: ?? 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 S/p Therapeutic Plasmapheresis x3 2. Dr. Riddle following the patient: s/p Plasma exchange x3 3. Continue CHIEF INFORMATION OFFICER Rosuvastatin 4. Continue CHIEF INFORMATION OFFICER Fenofibrate 5. Pain control PRN meds ?? H/o recurrent Chronic pancreatitis - Not an acute issue ?? CT abdomen negative for acute pancreatitis, lipase normal ?? 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 GERD 1. Protonix ?? Diabetic Diet: advance as tolerated- low fat ?? Nutrition: Current Diet and/or Nutritional Supplementation ordered: Low fat, diabetic diet. ?? Renal/LYTES/Acid-Base: ?? GAYATHRI ?? BMP Q72 hours with lab holidays Infectious Disease: ?? GAYATHRI Hem/Onc/Coag: ?? Anemia: with Hb of 9.6 ?? lovenox Endocrine: ?? Uncontrolled hyperglycemia in IDDM; 08/24 A1c 8.9 : glucose >200 this am ?? Added NPH 10 Units BID ?? Insulin ACHS ?? Hypoglycemia pathway ?? Hypothyroidism 1. CHIEF INFORMATION OFFICER Synthroid Musculoskeletal/Skin: ?? GAYATHRI DVT prophylaxis: Lovenox 40 GI prophylexis:Protnix Disposition: BH, pt medically cleared Code Status:Full code Lines: two ports, one in each subclavian veins, 2PIVs Subjective: 24 hour events- slept throughout the night, in no acute distress, get out of bed and walked, and isfeeling better. No SI Objective: Body mass index is 33.17 kg/m??. Current vital signs Blood pressure (!) 92/50, pulse 84, temperature 98.2 ??F (36.8 ??C), temperature source Oral, resp.rate (!) 5, height 5' 5 (1.651 m), weight 90.4 kg (199 lb 4.8 oz), SpO2 98 %, not currently . 24 hour BP and temperature range BP: (92-114)/(50-67) Temp (24hrs), Av.2 ??F (36.8 ??C), Min:98.1 ??F (36.7 ??C), Max:98.3 ??F (36.8 ??C) Input/Output 09/17 1899 - 09/19 0559 In: 1120 [P.O.:1120] Out: - Physical Exam ?? Gen:well operating female in no acute distress. ?? Neuro: A/Ox4, ?? HEENT: At/NC,PERRLA, EOMI, no focal neurological deficit ?? Cardiac: RRR, S1-S2 audible, no MRG ?? Pulm: Clear to auscultation bilaterally ?? Abdomen: no rebound, normal bowel sounds,negative mohit signs ?? Skin: Warm, dry, free of rashes ?? Extremities: No edema bilaterally Data Review: BMP: Recent Labs 09/17/21 0509/18/21 0531 09/19/21 0411 GLUCOSE 186* 221* 148* BUN 5* 6 6 CREAT 0.56 0.63 0.63 NA 142 141 141 K 4.0 3.7 4.0 CL 106 102 102 CO2 24 29 29 ANIONGAP 12 10 10 estimated creatinine clearance is 125.3 mL/min (by C-G formula based on SCr of 0.63 mg/dL). LFTs: Recent Labs 09/17/21 0520 09/18/21 0531 09/19/21 0411 ALKPHOS 31* 40 45 ALT 7 10 18 AST 10 15 26 BILITOTAL 0.3 0.2* 0.2* ALBUMIN 4.4 4.5 4.5 CBC: Recent Labs 09/17/21 0520 09/18/21 0531 09/19/21 0411 WBC 4.2 5.1 5.2 HGB 9.9* 9.6* 9.9* HCT 31.3* 31.5* 31.5* PLT 180 187 187 MCV 95.4 95.7 94.3 Coagulation: No results for input(s): PT, INR, APTT in the last 72 hours. ABG: Lab Results Component Value Date PHARTERIAL 7.28 (L) 10/29/2018 [id number] 42 10/29/2018 PO2ART 97 10/29/2018 [id number] 20 (L) 10/29/2018 BASEEXCESS -6.4 (L) 10/29/2018 Central VBG: No results found for: PHMIXEDVEN, [id number], [id number], ZNC9OHMDM, KF9JIYT Lactic acid: Lab Results Component Value Date/Time LACTATE 0.7 12/27/2020 04:20 AM LACTATE 1.9 02/16/2020 12:45 AM LACTATE 1.8 02/02/2019 01:37 AM LACTATE 1.1 07/31/2018 03:20 AM * Jud Garcia RN - 09/19/2021 4:52 AM CDT End of Shift Note: Patient slept through most of the night. Q4h vitals. BM in evening of 09/18. Up independently. Neuro: A&Ox4; follows commands - purposefulmovements Resp: clear lung sounds; room air CV: NSR; HR 70-80s GI: Low fat diet; BM overnight Endocrine: ACHS accuchecks; no sliding scale needed for HS check : sufficient output overnight Skin: No acute issues at this time * Roland Ballesteros NP - 09/18/2021 1:00 PM CDT Chief Complaint: I am still depressed Detailed Interval History: Casandra was seen as a follow up from psychiatry this morning. She was laying in bed at the time of being seen with 1:1 present. Casandra reports that she is still feeling significantly depression, appears constricted and anxious in affect at the time of being seen. Tearful at times throughout the assessment. Casandra reports that she has been having significant stressors from her children and general lack of support that she receives. Sleep last night was good and appetite is fair. Endorses anxiety at this time as well, feeling ready to be over in inpatient and having medications further adjusted. No psychosis present, denies SI/HI currently at this moment. Location: Depression (Primary Problem) Problem has not changed. Context: lack of support, stressors from children Severity:did not rate/10 with 10 being Best. Duration:weeks. Modifying Factors:Medications, therapy. Associated Symptoms: MOOD:depressed. ANHEDONIA: yes. APPETITE: not normal. SLEEP: Sleep/Rest/Relaxation: awake (09/18/21 0840) Sleep was good last night CONCENTRATION: normal. FATIGUE: increased. RESTLESSNESS: mild. SUICIDAL IDEATION: no. SUICIDAL PLAN: no. SUICIDAL INTENT: no. HOMICIDAL IDEATION: no. HALLUCINATIONS: no. DELUSIONS: no. Past,Family, & Social History: [x] : check if no change from initial eval done. BP (!) 94/63 Pulse 87 Temp 98.1 ??F (36.7 ??C) (Oral) Resp 11 Ht 5' 5 (1.651 m) Wt 90.4 kg (199 lb 4.8 oz) SpO2 100% BMI 33.17 kg/m?? Facility-Administered Medications as of 09/18/2021 Medication Dose Frequency Provider Last Rate Last Admin ??? insulin NPH human (HUMULIN N,NOVOLIN N) injection 10 Units 10 Units BID BEFORE meals Anahi Bass, DO 10 Units at 09/18/21 1134 ??? buPROPion HCL (WELLBUTRIN XL) 24 hour tablet 450 mg 450 mg daily Jaida Wright DNP 450 mg at 09/18/21 1135 ??? hydrOXYzine HCL (ATARAX) tablet 25 mg 25 mg every 6 hours PRN Kyle, Jaida Afua, DNP ??? traZODone (DESYREL) tablet 50 mg 50 mg at bedtime PRN Jaida Wright, KENNETH ??? diphenhydrAMINE (BENADRYL) tablet 25 mg 25 mg BID PRN Anahi Bass DO 25 mg at 09/17/21 0833 ??? [COMPLETED] calcium GLUCONATE 2,000 mg in sodium chloride (iso-osmotic) 100 mL IVPB 2,000 mg ONE time only Phoenix Riddle MD Stopped at 09/16/21 1408 ??? [COMPLETED] diphenhydrAMINE (BENADRYL) injection 25 mg 25 mg intra-proc ONE time Phoenix Riddle MD 25 mg at 09/16/21 1100 ??? [COMPLETED] heparin, porcine lock flush (pf) 100 unit/mL injection 500 Units 500 Units ONE timeonly Phoenix Riddle MD 500 Units at 09/16/21 1424 ??? [COMPLETED] heparin, porcine lock flush (pf) 100 unit/mL injection 500 Units 500 Units ONE timeonly Phoenix Riddle MD 500 Units at 09/16/21 1424 ??? [COMPLETED] heparin, porcine (pf) 10 unit/mL IV syringe 20 Units 20 Units ONE time only Phoenix Riddle MD 20 Units at 09/16/21 1423 ??? [COMPLETED] calcium GLUCONATE 2,000 mg in sodium chloride (iso-osmotic) 100 mL IVPB 2,000 mg ONE time only Phoenix Riddle MD Stopped at 09/15/21 1422 ??? [COMPLETED] sodium chloride flush injection 10 mL 10 mL ONE time only Phoenix Riddle MD 10mL at 09/15/21 1426 Followed by ??? [COMPLETED] heparin, porcine (pf) 10 unit/mL IV syringe 20 Units 20 Units ONE time only Phoenix Riddle MD 20 Units at 09/15/21 1427 Followed by ??? [COMPLETED] sodium chloride flush injection 10 mL 10 mL ONE time only Phoenix Riddle MD 10mL at 09/15/21 1428 Followed by ??? [COMPLETED] heparin, porcine lock flush (pf) 100 unit/mL injection 500 Units 500 Units ONE timeonly Phoenix Riddle MD 500 Units at 09/15/21 1428 ??? [COMPLETED] sodium chloride flush injection 20 mL 20 mL ONE time only Phoenix Riddle MD 20mL at 09/15/21 1425 Followed by ??? [COMPLETED] heparin, porcine lock flush (pf) 100 unit/mL injection 500 Units 500 Units ONE timeonly Phoenix Riddle MD 500 Units at 09/15/21 1425 ??? sennosides (SENOKOT) tablet 17.2 mg 17.2 mg BID Juan José Mares MD 17.2 mg at 09/18/21 0852 ??? [COMPLETED] polyethylene glycol (MIRALAX) packet 17 Gram 17 Gram ONE time only Juan José Mares MD 17 Gram at 09/14/21 0101 ??? atorvastatin (LIPITOR) tablet 80 mg 80 mg daily BEDTIME Juan José Mares MD 80 mg at 09/17/21 2030 ??? HYDROmorphone (DILAUDID) 2 mg/mL injection 0.5 mg 0.5 mg every 3 hours PRN Erick Venegas MD 0.5 mg at 09/18/21 1148 ??? cetirizine (ZyrTEC) tablet 10 mg 10 mg daily Juan José Mares MD 10 mg at 09/18/21 0851 ??? [COMPLETED] calcium GLUCONATE 2,000 mg in sodium chloride (iso-osmotic) 100 mL IVPB 2,000 mg ONE time only Imelda Mclain MD Stopped at 09/14/21 1409 ??? pantoprazole (PROTONIX) tablet 40 mg 40 mg daily BEFORE breakfast Imelda Mclain MD 40 mgat 09/18/21 0907 ??? dextrose 50% (D50) syringe 12.5 Gram 12.5 Gram see admin instructions Imelda Mclain MD ??? dextrose 50% (D50) syringe 25 Gram 25 Gram see admin instructions Imelda Mclain MD ??? glucagon human recombinant (GLUCAGEN) 1 mg/mL injection 1 mg 1 mg see admin instructions Imelda Mclain MD ??? diphenhydrAMINE-zinc acetate (BENADRYL EXTRA STRENGTH) 2-0.1 % topical cream QID Erick Venegas MD ??? oxyCODONE (ROXICODONE) tablet 5 mg 5 mg QID Erick Venegas MD 5 mg at 09/18/21 0851 ??? oxyCODONE (ROXICODONE) tablet 7.5 mg 7.5 mg every 6 hours PRN Erick Venegas MD 7.5 mg at09/17/21 0527 ??? [COMPLETED] heparin, porcine (pf) 10 unit/mL IV syringe 20 Units 20 Units ONE time only Phoenix Riddle MD 20 Units at 09/14/21 1215 ??? [COMPLETED] heparin, porcine lock flush (pf) 100 unit/mL injection 500 Units 500 Units ONE timeonly Phoenix Riddle MD 500 Units at 09/14/21 1400 ??? [COMPLETED] heparin, porcine lock flush (pf) 100 unit/mL injection 500 Units 500 Units ONE timeonly Phoenix Riddle MD 500 Units at 09/14/21 1400 ??? [COMPLETED] sodium chloride 0.9% bolus solution 500 mL 500 mL ONE time only Imelda Mclain MD Stopped at 09/14/21 1315 ??? [COMPLETED] calcium GLUCONATE 1,000 mg in sodium chloride (iso-osmotic) 50 mL IVPB 1,000 mg intra-proc ONE time Phoenix Riddle MD Stopped at 09/14/21 1458 ??? dextrose 5% - sodium chloride 0.9% infusion see admin instructions Anahi Bass, DO ??? insulin lispro (HumaLOG) injection 0-9 Units 0-9 Units TID WITH meals Anahi Bass, DO 3 Units at 09/18/21 1008 ??? insulin lispro (HumaLOG) injection 0-4 Units 0-4 Units daily BEDTIME Anahi Bass, DO 2 Units at 09/17/21 2248 ??? [COMPLETED] calcium GLUCONATE 2,000 mg in sodium chloride (iso-osmotic) 100 mL IVPB 2,000 mg ONE time only Imelda Mclain MD Stopped at 09/14/21 1839 ??? [COMPLETED] morphine 4 mg/mL injection 4 mg 4 mg ONE time only Antwon Coyle MD 4 mg at 09/13/212027 ??? [COMPLETED] ondansetron (ZOFRAN) 4 mg/2 mL injection 4 mg 4 mg ONE time only Antwon Coyle MD 4 mg at 09/13/212027 ??? [COMPLETED] lactated ringers bolus solution 1,000 mL 1,000 mL ONE time only Antwon Coyle MD Stopped at 09/13/212144 ??? naloxone (NARCAN) 0.4 mg/mL injection 0.1 mg 0.1 mg see admin instructions Sharri Jones NP ??? enoxaparin (LOVENOX) injection 40 mg 40 mg every 24 hours Sharri Jones NP 40 mg at 09/18/21 0851 ??? [COMPLETED] HYDROmorphone (DILAUDID) 2 mg/mL injection 0.5 mg 0.5 mg ONE time only Antwon Coyle MD 0.5 mg at 09/13/212213 ??? [COMPLETED] iopamidoL (ISOVUE-300) 61% injection (drawn from multi-use bulk pack) 120 mL 120 mLintra-proc ONE time Ceasar Grayson MD 120 mL at 09/13/212242 ??? [COMPLETED] sodium chloride flush injection 10 mL 10 mL ONE time only Ceasar Grayson MD 10 mL at 09/13/212244 ??? [COMPLETED] HYDROmorphone (DILAUDID) 2 mg/mL injection 0.5 mg 0.5 mg ONE time only Antwon Coyle MD 0.5 mg at 09/13/212310 ??? [COMPLETED] ondansetron (ZOFRAN) 4 mg/2 mL injection 4 mg 4 mg ONE time only Antwon Coyle MD 4 mg at 09/13/212317 ??? omega-3 acid ethyl esters (LOVAZA) capsule 2 Gram 2 Gram BID WITH meals Juan José Mares MD 2 Gram at 09/18/21 0907 ??? citalopram (CeleXA) tablet 40 mg 40 mg daily Juan José Mares MD 40 mg at 09/18/21 0909 ??? fenofibrate (LOFIBRA) tablet 160 mg 160 mg daily Juan José Mares MD 160 mg at 09/18/21 0908 ??? levothyroxine (SYNTHROID) tablet 200 mcg 200 mcg daily EARLY Juan José Mares MD 200 mcg at 09/18/21 0534 ??? traZODone (DESYREL) tablet 100 mg 100 mg daily BEDTIME Juan José Mares MD 100 mg at 09/17/21 2030 OBJECTIVE: ROS: Constitutional: Negative for fever and chills. Skin: Negative for rash and wound. GI: Negative for nausea and vomiting. Musculoskeletal: Negative for myalgias and back pain. Neurological: Negative but refer to psychiatric symptoms. All other were Negative. Mental Status Evaluation: Appearance: age appropriate Behavior: cooperative with exam Speech: normal pitch and normal volume Mood: anxious and depressed Affect: blunted Thought Process: within normal limits Thought Content: appropriate responses to questions asked and no SI, HI, hallucinations, delusions Sensorium: person, place, situation and time/date Cognition: grossly intact Insight & Judgement: limited Data Base: I have reviewed all labs and pertinent ones are noted below. Recent Results (from the past 24 hour(s)) POC GLUCOSE Collection Time: 09/17/21 6:33 PM Result Value Ref Range GLUCOSE POC 208 (H) 74 - 99 mg/dL SPECIMEN SOURCE, GLUCOSE POC Whole Blood COMMENT, GLU POC Notified RN/MD POC GLUCOSE Collection Time: 09/17/21 10:47 PM Result Value Ref Range GLUCOSE POC 250 (H) 74 - 99 mg/dL SPECIMEN SOURCE, GLUCOSE POC Whole Blood COMMENT, GLU POC Notified RN/MD POC GLUCOSE Collection Time: 09/18/21 2:08 AM Result Value Ref Range GLUCOSE POC 217 (H) 74 - 99 mg/dL SPECIMEN SOURCE, GLUCOSE POC Whole Blood CBC WITH DIFFERENTIAL Collection Time: 09/18/21 5:31 AM Result Value Ref Range WBC 5.1 4.0 - 9.8 K/uL RBC 3.29 (L) 3.90 - 4.90 M/uL HEMOGLOBIN 9.6 (L) 11.8 - 14.8 g/dL HEMATOCRIT 31.5 (L) 35.5 - 44.0 % MCV 95.7 82.0 - 99.0 fL MCH 29.2 27.2 - 32.6 pg MCHC 30.5 (L) 31.5 - 35.5 g/dL RDW 16.0 (H) 11.5 - 14.5 % RDW-STDEV 57.1 (H) 37.1 - 48.7 fL PLATELETS 187 140 - 350 K/uL MPV 9.8 9.3 - 12.4 fL NEUTROPHILS 60 % LYMPHOCYTES 32 % MONOCYTES 6 % EOSINOPHILS 1 % BASOPHILS 0 % IMMATURE GRANULOCYTES 1 % NEUTROPHIL ABSOLUTE 3.06 1.90 - 7.00 K/uL LYMPHOCYTE ABSOLUTE 1.62 0.70 - 4.50 K/uL MONOCYTE ABSOLUTE 0.28 0.10 - 1.30 K/uL EOSINOPHIL ABSOLUTE 0.07 0.00 - 0.70 K/uL BASOPHILS ABSOLUTE 0.01 0.00 - 0.20 K/uL IMMATURE GRANULOCYTES ABSOLUTE 0.03 0.00 - 0.03 K/uL COMPREHENSIVE METABOLIC PANEL Collection Time: 09/18/21 5:31 AM Result Value Ref Range SODIUM 141 136 - 145 mmol/L POTASSIUM 3.7 3.5 - 5.0 mmol/L CHLORIDE 102 98 - 107 mmol/L CO2 29 22 - 29 mmol/L CALCIUM 8.9 8.6 - 10.2 mg/dL BUN 6 6 - 20 mg/dL CREATININE 0.63 0.51 - 0.95 mg/dL GLUCOSE 221 (H) 74 - 99 mg/dL TOTAL PROTEIN 5.9 (L) 6.7 - 8.6 g/dL ALBUMIN 4.5 3.5 - 5.2 g/dL BILIRUBIN TOTAL 0.2 (L) 0.3 - 1.2 mg/dL ALKALINE PHOSPHATASE 40 35 - 104 U/L AST 15 <33 U/L ALT 10 <34 U/L GFR >60 >=60 mL/min/1.73 sq meter ANION GAP 10 8 - 16 mmol/L POC GLUCOSE Collection Time: 09/18/21 9:42 AM Result Value Ref Range GLUCOSE POC 180 (H) 74 - 99 mg/dL SPECIMEN SOURCE, GLUCOSE POC Whole Blood ASSESSMENT: PRIMARY DIAGNOSIS & PLAN: Patient Active Hospital Problem List: Severe episode of recurrent major depressive disorder, without psychotic features (09/17/2021) POA: Unknown Assessment: Still endorsing significant depression and anxiety at this time. Plan: Continue current medications with plan to admit to inpatient 5 unit once bed is available. PLAN: Support given. 1) Pt information, assessment, plan discussed with Dr. Redd. 2) Continue current medications with plan to admit to inpatient [facility] [place] unit once bed is available. 3) Pt does need inpatient behavioral health admission following hospitalization. 4) Continue 1:1 sitter at this time. Discussed the benefits/risks/alternatives of treatment plan, including no treatment. Current medications reviewed. Discussed purpose, action, and potential side effects of medications, and the patient has demonstrated their understanding of these side effects by engaging in meaningful conversation and asking appropriate questions about them. Patient informed of importance of compliance with chosen options. Instruction for management/treatment and/or follow up. Provided education about conditionand risk factor reduction. Discussed bio/psycho/social aspects of patient's care. Coordination with: [] Nursing [] Bingo Floater [] Social Work [x]Physician []Family Patient is tolerating the current medications and continues to consent to treatment plan. I discussed severity/complexity of her illness which is high. Roland Ballesteros, PMHNP Associated attestation - Ren Pal MD - 09/19/2021 5:32 AM CDT Patient information , assessment and plan discussed with ENGRAVED ROLLER INSPECTOR. I agree with major elements of this note and plan. * Imelda Mclain MD - 09/18/2021 7:16 AM CDT CRITICAL CARE MEDICINE DAILY PROGRESS NOTE Reason for ICU admission: SI in setting of Hypertriglyceridemia ICU Timeline: Casandra Jones is a 45 y.o. female admitted 09/13/2021 with familial chylomicronemia, causing chronic recurrent pancreatitis 2-triglyceridemia, patient receives weekly plasmapheresis as outpatient through [facility] and follows up with Dr. Gates, insulin-dependent diabetes mellitus, GERD,PTSD, depression, hypothyroidism, PCOS. Patient presented to the ED on 09/16 2021 with suicidal ideation with a plan to overdose on her insulin. ?? Admitted 09/13/2021 ?? S/p plasma exchange 09/14/2021 ?? 2nd Plasma exchange 09/15/2021 ?? 3rd Plasma Exchange 09/16/2021 ?? Medically clear for transfer: 09/18/2021 Active Hospital Problems Diagnosis ??? Severe episode of recurrent major depressive disorder, without psychotic features ??? Diabetes mellitus type I ??? Suicide ideation ??? Hyponatremia Resolved Hospital Problems No resolved problems to display. Assessment and Plan: Neuro/Psych: ?? Suicidal Ideation with Plan 1. [facility] consulted- evaluated patient 2. Suicide watch- sitter 3. Increased Wellbutrin to 450 mg daily and change to XL for depression. 4. Continue Celexa 40 mg daily for depression, anxiety. 5. Continue Trazodone 100 mg nightly for insomnia. 6. Trazodone 50 mg PRN insomnia. 7. Hydroxyzine 25 mg Q 6 PRN anxiety. 8. Plan to admit to inpatient Behavioral Health. She would require 5W, but this unit is currently unavailable. 9. Psych following 10. Continue suicide precautions, 1:1 sitter. ?? Mood Disorder/MDD/PTSD/anxiety 1. Continue CHIEF INFORMATION OFFICER citalopram 40 mg daily 2. Continue CHIEF INFORMATION OFFICER bupropion 150 mg twice daily 3. Continue CHIEF INFORMATION OFFICER trazodone 100 mg daily at bedtime ?? Pain control 1. Tylenol 2. Dilaudid for severe pain for pain >7 3. Oxy 5 mg QID 4. Oxy for pain score <7, every 6 hours scheduled Cardiovascular/Fluids: ?? GAYATHRI Pulmonary: ?? GAYATHRI ?? Allergies 1. ceterizine GI/NUT: ?? 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 S/p Therapeutic Plasmapheresis x3 2. Dr. Riddle following the patient: s/p Plasma exchange x3 3. Continue CHIEF INFORMATION OFFICER Rosuvastatin 4. Continue CHIEF INFORMATION OFFICER Fenofibrate 5. Pain control PRN meds ?? H/o recurrent Chronic pancreatitis - Not an acute issue ?? CT abdomen negative for acute pancreatitis, lipase normal ?? 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 GERD 1. Protonix ?? Diabetic Diet: advance as tolerated- low fat ?? Nutrition: Current Diet and/or Nutritional Supplementation ordered: Low fat, diabetic diet. ?? Renal/LYTES/Acid-Base: ?? GAYATHRI Infectious Disease: ?? GAYATHRI Hem/Onc/Coag: ?? Anemia: with Hb of 9.6 ?? lovenox Endocrine: ?? Uncontrolled hyperglycemia in IDDM; 08/24 A1c 8.9 : glucose >200 this am ?? Added NPH 10 Units BID ?? Insulin ACHS ?? Hypoglycemia pathway ?? Hypothyroidism 1. CHIEF INFORMATION OFFICER Synthroid Musculoskeletal/Skin: ?? GAYATHRI DVT prophylaxis: Lovenox 40 GI prophylexis:Protnix Disposition: BH, pt medically cleared Code Status:Full code Lines: two ports, one in each subclavian veins, 2PIVs Subjective: 24 hour events- no over night events, pt slept well, and is pain free. Objective: Body mass index is 33.17 kg/m??. Current vital signs Blood pressure (!) 94/63, pulse 87, temperature 98.1 ??F (36.7 ??C), temperature source Oral, resp.rate 11, height 5' 5 (1.651 m), weight 90.4 kg (199 lb 4.8 oz), SpO2 100 %, not currently . 24 hour BP and temperature range BP: (94-125)/(50-81) Temp (24hrs), Av.2 ??F (36.8 ??C), Min:98.1 ??F (36.7 ??C), Max:98.4 ??F (36.9 ??C) Input/Output 09/16 1899 - 09/18 0659 In: 1070 [P.O.:1070] Out: 1550 [Urine:1550] Physical Exam ?? Gen:well operating female in no acute distress. ?? Neuro: A/Ox4, ?? HEENT: At/NC,PERRLA, EOMI, no focal neurological deficit ?? Cardiac: RRR, S1-S2 audible, no MRG ?? Pulm: Clear to auscultation bilaterally ?? Abdomen: no rebound, normal bowel sounds,negative mohit signs ?? Skin: Warm, dry, free of rashes ?? Extremities: No edema bilaterally Data Review: BMP: Recent Labs 09/16/21 0416 09/17/21 0520 09/18/21 0531 GLUCOSE 200* 186* 221* BUN 7 5* 6 CREAT 0.54 0.56 0.63 NA 138 142 141 K 4.7 4.0 3.7 CL 106 106 102 CO2 22 24 29 ANIONGAP 10 12 10 MG 1.7 -- -- estimated creatinine clearance is 125.3 mL/min (by C-G formula based on SCr of 0.63 mg/dL). LFTs: Recent Labs 09/16/2141509/17/21 0520 09/18/21 0531 ALKPHOS 27* 31* 40 ALT 9 7 10 AST 19 10 15 BILITOTAL 0.2* 0.3 0.2* ALBUMIN 4.3 4.4 4.5 CBC: Recent Labs 09/16/2141509/17/21 0520 09/18/21 0531 WBC 4.0 4.2 5.1 HGB 9.5* 9.9* 9.6* HCT 30.6* 31.3* 31.5* PLT 167 180 187 MCV 96.5 95.4 95.7 Coagulation: No results for input(s): PT, INR, APTT in the last 72 hours. ABG: Lab Results Component Value Date PHARTERIAL 7.28 (L) 10/29/2018 [id number] 42 10/29/2018 PO2ART 97 10/29/2018 [id number] 20 (L) 10/29/2018 BASEEXCESS -6.4 (L) 10/29/2018 Central VBG: No results found for: PHMIXEDVEN, [id number], [id number], UXO3KVVRR, FM5PTWW Lactic acid: Lab Results Component Value Date/Time LACTATE 0.7 12/27/2020 04:20 AM LACTATE 1.9 02/16/2020 12:45 AM LACTATE 1.8 02/02/2019 01:37 AM LACTATE 1.1 07/31/2018 03:20 AM Associated attestation - Flores Morales MD - 09/19/2021 7:14 AM CDT [facility] ATTENDING ATTESTATION I have discussed the history, physical findings, laboratory findings, AND assessment and plan with the resident and the patient's RN. Patient medically clear for discharge to inpatient behavioral facility. Await bed availability. * Lin Espinal DO - 09/17/2021 1:49 PM CDT Update patient's at bedside on patient's current status and care of plan. All questions/concerns addressed. Lin Espinal DO Beam House Inspector, PGY1 * Lin Espinal DO - 09/17/2021 7:11 AM CDT CRITICAL CARE MEDICINE DAILY PROGRESS NOTE Reason for ICU admission: SI in setting of Hypertriglyceridemia ICU Timeline: Casandra Jones is a 45 y.o. female admitted 09/13/2021 with familial chylomicronemia, causing chronic recurrent pancreatitis 2-triglyceridemia, patient receives weekly plasmapheresis as outpatient through [facility] and follows up with Dr. Gates, insulin-dependent diabetes mellitus, GERD,PTSD, depression, hypothyroidism, PCOS. Patient presented to the ED on 09/16 2021 with suicidal ideation with a plan to overdose on her insulin. ?? Admitted 09/13/2021 ?? S/p plasma exchange 09/14/2021 ?? 2nd Plasma exchange 09/15/2021 ?? 3rd Plasma Exchange 09/16/2021 Active Hospital Problems Diagnosis ??? Diabetes mellitus type I ??? Suicide ideation ??? Hyponatremia Resolved Hospital Problems No resolved problems to display. Assessment and Plan: Neuro/Psych: ?? Suicidal Ideation with Plan 1. U consulted- evaluated patient 2. Suicide watch- sitter 3. Psych recommends inpatient treatment - medically cleared for DC ?? Mood Disorder/MDD/PTSD/anxiety 1. Continue CHIEF INFORMATION OFFICER citalopram 40 mg daily 2. Continue CHIEF INFORMATION OFFICER bupropion 150 mg twice daily 3. Continue CHIEF INFORMATION OFFICER trazodone 100 mg daily at bedtime ?? Pain control 1. Tylenol 2. Dilaudid for severe pain for pain >7 3. Oxy 5 mg QID 4. Oxy for pain score <7, every 6 hours scheduled Cardiovascular/Fluids: ?? GAYATHRI Pulmonary: ?? Allergies 1. PRN benadryl 2. ceterizine ?? GAYATHRI?? GI/NUT: ?? 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 Marlys Mayer 1. S/p Therapeutic Plasmapheresis x3 2. Dr[address] Riddle following the patient: and recommends that: Triglycerides borderline at target, but patient will be moved to the medical-psychiatric unit where she will not be able to have PLEX. 3. Continue CHIEF INFORMATION OFFICER Rosuvastatin 4. Continue CHIEF INFORMATION OFFICER Fenofibrate 5. Pain control ?? H/o recurrent Chronic pancreatitis - ?? CT abdomen negative for acute pancreatitis, lipase normal ?? 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 GERD 1. Protonix ?? Diabetic Diet: advance as tolerated- low fat ?? Nutrition: Current Diet and/or Nutritional Supplementation ordered: DIET CLEAR LIQUID ?? Renal/LYTES/Acid-Base: ?? Pseudohyponatremia - in the setting of Hypertriglyceridemia: corrected: resolved ?? Glucosuria in setting of uncontrolled IDDM ?? 3mm non obstruction kidney Stone ?? Hypocalcemia: resolved ?? repleted prn Infectious Disease: ?? GAYATHRI Hem/Onc/Coag: ?? lovenox Endocrine: ?? Uncontrolled hyperglycemia in IDDM; 08/24 A1c 8.9 ?? Insulin ACHS ?? Hypoglycemia pathway ?? Obesity ?? PCOS ?? Hypothyroidism 1. CHIEF INFORMATION OFFICER Synthroid Musculoskeletal/Skin: ?? GAYATHRI DVT prophylaxis: Lovenox 40 Mg s/c every 24 hours GI prophylexis:Protnix Disposition: once medically cleared will go to Code Status:Full code Lines: two ports, one in each subclavian veins, 2PIVs Subjective: 24 hour events- completed plasma exchange yesterday, no overnight events, pain free, and slept well. Objective: Body mass index is 33.17 kg/m??. Current vital signs Blood pressure 96/64, pulse 83, temperature 97.8 ??F (36.6 ??C), temperature source Oral, resp. rate 13, height 5' 5 (1.651 m), weight 90.4 kg (199 lb 4.8 oz), SpO2 96 %, not currently . 24 hour BP and temperature range BP: (80-119)/(54-101) Temp (24hrs), Av ??F (36.7 ??C), Min:97.6 ??F (36.4 ??C), Max:98.5 ??F (36.9 ??C) Input/Output 09/15 1900 - 09/17 0659 In: 3427.1 [P.O.:540; I.V.:2887.1] Out: 5613 [Urine:2850] Physical Exam ?? Gen:wella operating female in no acute distress. ?? Neuro: A/Ox4, ?? HEENT: At/NC,PERRLA, EOMI, no focal neurological deficit ?? Cardiac: RRR, S1-S2 audible, no MRG ?? Pulm: Clear to auscultation bilaterally ?? Abdomen: no rebound, normal bowel sounds,negative mohit signs ?? Skin: Warm, dry, free of rashes ?? Extremities: No edema bilaterally Data Review: BMP: Recent Labs 09/14/21 1430 09/15/21 0509 09/16/21 0416 09/17/21 0520 GLUCOSE -- 181* 200* 186* BUN -- 6 7 5* CREAT -- 0.65 0.54 0.56 NA -- 136 138 142 K -- 4.2 4.7 4.0 CL -- 103 106 106 CO2 -- 19* 22 24 ANIONGAP -- 14 10 12 CAIONIZED 4.5* -- -- -- MG -- -- 1.7 -- estimated creatinine clearance is 141 mL/min (by C-G formula based on SCr of 0.56 mg/dL). LFTs: Recent Labs 09/15/21 0509 09/16/21 0416 09/17/21 0520 ALKPHOS 45 27* 31* ALT 10 9 7 AST 14 19 10 BILITOTAL 0.3 0.2* 0.3 ALBUMIN 4.4 4.3 4.4 CBC: Recent Labs 09/15/21 0509 09/16/21 0416 09/17/21 0520 WBC 5.4 4.0 4.2 HGB 10.3* 9.5* 9.9* HCT 31.8* 30.6* 31.3* PLT 188 167 180 MCV 94.4 96.5 95.4 Coagulation: Recent Labs 09/14/21 1034 PT 12.4* INR 0.9 ABG: Lab Results Component Value Date PHARTERIAL 7.28 (L) 10/29/2018 [id number] 42 10/29/2018 PO2ART 97 10/29/2018 [id number] 20 (L) 10/29/2018 BASEEXCESS -6.4 (L) 10/29/2018 Central VBG: No results found for: PHMIXEDVEN, YG8DSVVRER, MKS6GNEFHE, SSO3ILNUB, QC6AEBF Lactic acid: Lab Results Component Value Date/Time LACTATE 0.7 12/27/2020 04:20 AM LACTATE 1.9 02/16/2020 12:45 AM LACTATE 1.8 02/02/2019 01:37 AM LACTATE 1.1 07/31/2018 03:20 AM * Anahi Bass DO - 09/17/2021 7:06 AM CDT [facility] Fellow Note: Patient is medically cleared for discharge to * Rosales Tapia, CLAU - 09/16/2021 2:47 PM CDT Plasma exchange number 3completed using the right and left bard ports for access and return with 5%albumin and 2 units of FFP as replacement fluids for 1.0 volume exchange. * Phoenix Riddle MD - 09/16/2021 2:47 PM CDT CC: ??45??yo female??with with familial hypertriglyceridemia and recurrent pancreatitis admitted for presumed pancreatitis. ?? Procedure note: 1.0 volume plasma exchange with 5% albumin replacement, finished with 2 units FFP, 100% fluid balance,??2??g calcium gluconate during procedure.?Patient tolerated the procedure wellt. ?? 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 Labs: 08/21/21 preprocedure triglycerides:?>4425 mg/dL 08/21/21 postprocedure triglycerides:?2782 mg/dL 08/23/21 preprocedure triglycerides:?>4425 mg/dL 08/23/21 postprocedure triglycerides: ??2301 mg/dL 08/24/21 preprocedure triglycerides: ??>4425 mg/dL 08/25/21 triglycerides (no procedure): ??2738 mg/dL 08/26/21 preprocedure triglycerides: ??492 mg/dL 08/26/21 postprocedure triglycerides: ??211 mg/dL 09/14/21 preprocedure triglycerides: ??>4425 mg/dL 09/14/21 postprocedure triglycerides: ??1827 mg/dL 09/15/21 preprocedure triglycerides: 1254 mg/dL 09/15/21 postprocedure triglycerides: 519 mg/dL 09/16/21 preprocedure triglycerides: 595 mg/dL 09/17/21 am triglycerides: 336 mg/dL ?? A&P: 1. 45??yo female with??recurrent??hypertriglyceridemic pancreatitis??requiring therapeutic plasma??exchange??for presumed pancreatitis in the setting of marked hypertriglyceridemia??(ASFA category III indication). 2. Triglyceride levels below 500 mg/dL after 3 PLEX procedures, completing the current course; patient to be transferred to [facility]. 3. Per discussion with Dr. Mayer, outpatient maintenance PLEX has shown to be ineffective at keeping triglyceride levels at goal, will discontinue scheduled outpatient PLEX and emphasize medical management - patient to follow with Dr. Mayer. 4. In the event of worsening abdominal pain or other symptoms that typically precede her acute flares of pancreatitis, patient may contact the pheresis team to set up outpatient procedures on an as-needed basis. 5. Patient will need to follow up for port flushes every 28 days on an outpatient basis as long as the port remains in place. ? Phoenix Riddle MD [employer] Division, therapeutic apheresis service [phone] * Imelda Mclain MD - 09/16/2021 10:46 AM CDT CRITICAL CARE MEDICINE DAILY PROGRESS NOTE Reason for ICU admission: SI in setting of Hypertriglyceridemia ICU Timeline: Casandra Jones is a 45 y.o. female admitted 09/13/2021 with familial chylomicronemia, causing chronic recurrent pancreatitis 2-triglyceridemia, patient receives weekly plasmapheresis as outpatient through [facility] and follows up with Dr. Gates, insulin-dependent diabetes mellitus, GERD,PTSD, depression, hypothyroidism, PCOS. Patient presented to the ED on 09/16 2021 with suicidal ideation with a plan to overdose on her insulin. ?? Admitted 09/13/2021 ?? S/p plasma exchange 09/14/2021 ?? 2nd Plasma exchange 09/15/2021 ?? 3rd Plasma Exchange 09/16/2021 ?? Significant followup items include: N/A Active Hospital Problems Diagnosis ??? Diabetes mellitus type I ??? Suicide ideation ??? Hyponatremia Resolved Hospital Problems No resolved problems to display. Assessment and Plan: Neuro/Psych: ?? Suicidal Ideation with Plan 1. U consulted- evaluated patient 2. Suicide watch- sitter 3. Psych recommends inpatient treatment ?? Mood Disorder/MDD/PTSD/anxiety 1. Continue CHIEF INFORMATION OFFICER citalopram 40 mg daily 2. Continue CHIEF INFORMATION OFFICER bupropion 150 mg twice daily 3. Continue CHIEF INFORMATION OFFICER trazodone 100 mg daily at bedtime 4. Ativan PRN ?? Pain control - 1. Tylenol 2. Dilaudid for severe pain for pain >7 3. Oxy for pain score <7, every 6 hours scheduled Cardiovascular/Fluids: ?? GAYATHRI Pulmonary: ?? Allergies 1. Oral benadryl 2. ceterizine ?? GAYATHRI?? GI/NUT: ?? 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 Marlys Mayer 1. S/p Therapeutic Plasmapheresis x2 2[address] Riddle following the patient: and recommends that: Triglycerides borderline at target, but patient will be moved to the medical-psychiatric unit where she will not be able to have PLEX. 3. Plan for another session of plasma exchange today on 09/16/21. Since that will be the 3rd day in a row, plan for finishing with 2 units of FFP. 4. Continue CHIEF INFORMATION OFFICER Rosuvastatin 5. Continue CHIEF INFORMATION OFFICER Fenofibrate 6. Pain control ?? H/o recurrent Chronic pancreatitis - ?? CT abdomen negative for acute pancreatitis, lipase normal ?? 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 GERD 1. Protonix ?? Diabetic Diet: advance as tolerated- low fat ?? Nutrition: Current Diet and/or Nutritional Supplementation ordered: DIET CLEAR LIQUID ?? Renal/LYTES/Acid-Base: ?? Pseudohyponatremia - in the setting of Hypertriglyceridemia: corrected: resolved ?? Glucosuria in setting of uncontrolled IDDM ?? 3mm non obstruction kidney Stone ?? Hypocalcemia: ?? repleted with calcium gluconate Infectious Disease: ?? GAYATHRI Hem/Onc/Coag: ?? lovenox Endocrine: ?? Uncontrolled hyperglycemia in IDDM; 08/24 A1c 8.9 ?? Insulin ACHS ?? Hypoglycemia pathway ?? Obesity ?? PCOS ?? Hypothyroidism 1. CHIEF INFORMATION OFFICER Synthroid Musculoskeletal/Skin: ?? GAYATHRI DVT prophylaxis: Lovenox 40 Mg s/c every 24 hours GI prophylexis:Protnix Disposition: ICU today- once medically cleared will go to Code Status:Full code Lines: two ports, one in each subclavian veins, 2PIVs Family communication: Subjective: 24 hour events-no overnight events, pain free, and slept well. Objective: Body mass index is 33.17 kg/m??. Current vital signs Blood pressure 95/54, pulse 84, temperature 97.6 ??F (36.4 ??C), temperature source Oral, resp. rate 10, height 5' 5 (1.651 m), weight 90.4 kg (199 lb 4.8 oz), SpO2 94 %, not currently . 24 hour BP and temperature range BP: (83-113)/(46-84) Temp (24hrs), Av.5 ??F (36.4 ??C), Min:97.1 ??F (36.2 ??C), Max:97.9 ??F (36.6 ??C) Input/Output 09/140 - 09/16 0659 In: 3868.2 [P.O.:1000; I.V.:2868.2] Out: 5145 [Urine:2400] Physical Exam ?? Gen:wella operating female in no acute distress. ?? Neuro: A/Ox4, ?? HEENT: At/NC,PERRLA, EOMI, no focal neurological deficit ?? Cardiac: RRR, S1-S2 audible, no MRG ?? Pulm: Clear to auscultation bilaterally ?? Abdomen: no rebound, normal bowel sounds,negative mohit signs ?? Skin: Warm, dry, free of rashes ?? Extremities: No edema bilaterally Data Review: BMP: Recent Labs 09/13/21184809/14/21 0009 09/14/21 1430 09/15/21 0509 09/16/21 0416 GLUCOSE 281* 212* -- 181* 200* BUN 12 12 -- 6 7 CREAT 0.53 0.57 -- 0.65 0.54 NA 127* 127* -- 136 138 K -- 4.5 -- 4.2 4.7 CL 90* 90* -- 103 106 CO2 22 22 -- 19* 22 ANIONGAP 15 15 -- 14 10 CAIONIZED -- 4.6* 4.5* -- -- estimated creatinine clearance is 146.2 mL/min (by C-G formula based on SCr of 0.54 mg/dL). LFTs: Recent Labs 09/13/21184809/15/21 0509 09/16/21 0416 ALKPHOS -- 45 27* ALT 16 10 9 AST 39* 14 19 BILITOTAL 0.3 0.3 0.2* ALBUMIN 4.6 4.4 4.3 LIPASE 33 -- -- CBC: Recent Labs 09/13/21184809/14/21 0454 09/15/21 0509 09/16/21 0416 WBC 9.1 5.7 5.4 4.0 HGB 12.8 11.3* 10.3* 9.5* HCT 35.6 32.4* 31.8* 30.6* PLT 293 240 188 167 MCV 90.1 94.5 94.4 96.5 Coagulation: Recent Labs 09/14/21 1034 PT 12.4* INR 0.9 ABG: Lab Results Component Value Date PHARTERIAL 7.28 (L) 10/29/2018 [id number] 42 10/29/2018 PO2ART 97 10/29/2018 [id number] 20 (L) 10/29/2018 BASEEXCESS -6.4 (L) 10/29/2018 Central VBG: No results found for: PHMIXEDVEN, OP5XAMXBRM, TLW1EOFPLN, TSD3QBDNJ, VZ9NSQA Lactic acid: Lab Results Component Value Date/Time LACTATE 0.7 12/27/2020 04:20 AM LACTATE 1.9 02/16/2020 12:45 AM LACTATE 1.8 02/02/2019 01:37 AM LACTATE 1.1 07/31/2018 03:20 AM * Erick Venegas MD - 09/16/2021 10:09 AM CDT CCM ATTENDING Action Items for Hospitalist and/or PCP to follow - Endocrine consult - Dr Gates (follows her outpatient) Please consider this note in addition to the Resident/Fellow/ENGRAVED ROLLER INSPECTOR/PAs note from today (as applicable). I have discussed the history, physical findings, laboratory findings, AND assessment and plan withthe resident/Fellow/ENGRAVED ROLLER INSPECTOR/PA and the patients RN and RT as applicable. COVID 19 test not done Reason for ICU Admission: Suicidal ideation; HyperTAG - familial 45 F admitted for suicidal ideation; had a plan; was going to take insulin and not wake up. Has hadideation in the past but no plan. PMHx - Familial CM; recurrent pancreatitis on plasmapharesis q2 weeks; Hypothyroidism and PCOS; PTSD; MDD 24 hr events - plasmapharesis done; improved Sx; On insulin SQ Review of Systems Constitutional: Negative for chills and fever. HENT: Negative. Eyes: Negative. Respiratory: Negative. Cardiovascular: Negative. Gastrointestinal: Negative for abdominal pain, nausea and vomiting. Genitourinary: Negative. Musculoskeletal: Negative. Skin: Negative for rash. Neurological: Negative. Endo/Heme/Allergies: Negative. Psychiatric/Behavioral: Positive for depression. Physical Examination findings include: Body mass index is 33.17 kg/m??. Gen: no distress Neuro: Awake; Oriented X 4; affect - monotonous; sad CV: S1; S2; regular rhythm Resp: Clear breath sounds B ant chest GI: Soft, NT, BS +ve Ext: Bipedal edema no; Skin: No rashes on exposed surfaces; Assessment/Plan: 1. Suicide ideation - with plan; has had prior suicide ideation admissions; Psych has evaluated patient and think she will need inpatient psych admission; Continue suicide precautions; s/p hysterectomy -- so no urine preg test needed. 2. MDD - restarted on home meds - psych to manage 3. Pain control - staggered meds 4. Epigastric pain - RESOVLED. ? Pancreatitis but no evidence of pancreatitis on CT or labs. 5. 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 Rpt again today - Day 2 6. Recurrent pancreatitis - based on hx. No active inflammation on CT at this time. 7. GERD - PPI 8. Nutrition - advance diet as tolerated - low fat 9. Pseudohyponatremia - 2/2 hyper TAG 10. Insulin dependent DM - A1C 8.9 (07/2021); SSI AC/HS. 11. Hypothyroidism - continue synthroid 12. 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 Diabetes mellitus type I ??? Suicide ideation ??? Hyponatremia Resolved Hospital Problems No resolved problems to display. * Phoenix Riddle MD - 09/15/2021 5:20 PM CDT CC: ??45??yo female with with familial hypertriglyceridemia and recurrent pancreatitis admitted forpresumed pancreatitis.. ?? Interval history: Patient reports her abdominal pain has resolved, states she feels tired but is otherwise without complaint. ?? Procedure note: 1.0 volume plasma exchange with 5% albumin replacement, 100% fluid balance, 2 g calcium gluconate during procedure.?Patient tolerated the procedure wellt. ?? 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 Exam: General Appearance: -??Patient somnolent but arousable Skin: - Pale, generalized puffiness particularly of face. Respiratory: - Unlabored breathing Neuro: - Somnolent but able to answer questions appropriately ?? Labs: 08/21/21 preprocedure triglycerides:?>4425 mg/dL 08/21/21 postprocedure triglycerides:?2782 mg/dL 08/23/21 preprocedure triglycerides:?>4425 mg/dL 08/23/21 postprocedure triglycerides: ??2301 mg/dL 08/24/21 preprocedure triglycerides: ??>4425 mg/dL 08/25/21 triglycerides (no procedure): ??2738 mg/dL 08/26/21 preprocedure triglycerides: ??492 mg/dL 08/26/21 postprocedure triglycerides: ??211 mg/dL 09/14/21 preprocedure triglycerides: >4425 mg/dL 09/14/21 postprocedure triglycerides: 1827 mg/dL 09/15/21 preprocedure triglycerides: 1254 mg/dL 09/15/21 postprocedure triglycerides: 519 mg/dL ?? A&P: 1. 45??yo female with??recurrent??hypertriglyceridemic pancreatitis??requiring therapeutic plasma??exchange for acute episode of pancreatitis??(ASFA category III indication). 2. Triglyceride levels markedly elevated, though not particularly abnormal for her. Presumptive pancreatitis flare with worsening abdominal pain, will perform plasma exchange to reduce triglyceride levels. 3. 1.0 volume exchange, 5% albumin replacement, 100% fluid volume, 2 g calcium gluconate to be performed daily until triglycerides <500 mg/dL. 4.??Triglycerides borderline at target, but patient will be moved to the medical-psychiatric unit where she will not be able to have PLEX. Will plan for one more procedure, tomorrow 09/16/21. Since that will be the 3rd day in a row, plan for finishing with 2 units of FFP. ?? I have??seen and examined the patient,??reviewed pertinent notes and records,??and remained immediately available throughout the procedure. ?? Phoenix Riddle MD [facility] Division, therapeutic apheresis service [phone] * Sharri Juarez RN - 09/15/2021 3:09 PM CDT Plasma exchange completed today using BARD ports for draw and return. Used 5% Albumin as replacement fluid for a 1.0 volume exchange with a 100% fluid balance. Patient tolerated the procedure well. * Erick Venegas MD - 09/15/2021 8:01 AM CDT CCM ATTENDING Action Items for Hospitalist and/or PCP to follow - Endocrine consult - Dr Gates (follows her outpatient) Please consider this note in addition to the Resident/Fellow/ENGRAVED ROLLER INSPECTOR/PAs note from today (as applicable). I have discussed the history, physical findings, laboratory findings, AND assessment and plan withthe resident/Fellow/ENGRAVED ROLLER INSPECTOR/PA and the patients RN and RT as applicable. COVID 19 test not done Reason for ICU Admission: Suicidal ideation; HyperTAG - familial 45 F admitted for suicidal ideation; had a plan; was going to take insulin and not wake up. Has hadideation in the past but no plan. PMHx - Familial CM; recurrent pancreatitis on plasmapharesis q2 weeks; Hypothyroidism and PCOS; PTSD; MDD 24 hr events - plasmapharesis done yesterday; improved Sx; On insulin SQ' off insulin gtt Review of Systems Constitutional: Negative for chills and fever. HENT: Negative. Eyes: Negative. Respiratory: Negative. Cardiovascular: Negative. Gastrointestinal: Negative for abdominal pain, nausea and vomiting. Genitourinary: Negative. Musculoskeletal: Negative. Skin: Negative for rash. Neurological: Negative. Endo/Heme/Allergies: Negative. Psychiatric/Behavioral: Positive for depression. Physical Examination findings include: Body mass index is 33.17 kg/m??. Gen: no distress Neuro: Awake; Oriented X 4; affect - monotonous; sad CV: S1; S2; regular rhythm Resp: Clear breath sounds B ant chest GI: Soft, NT, BS +ve Ext: Bipedal edema no; Skin: No rashes on exposed surfaces; Assessment/Plan: 1. Suicide ideation - with plan; has had prior suicide ideation admissions; Psych has evaluated patient and think she will need inpatient psych admission; Continue suicide precautions; s/p hysterectomy -- so no urine preg test needed. 2. MDD - restarted on home meds - psych to manage 3. Pain control - staggered meds 4. Epigastric pain - RESOVLED. ? Pancreatitis but no evidence of pancreatitis on CT or labs. 5. 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 Rpt again today - Day 2 6. Recurrent pancreatitis - based on hx. No active inflammation on CT at this time. 7. GERD - PPI 8. Nutrition - advance diet as tolerated - low fat 9. Pseudohyponatremia - 2/2 hyper TAG 10. Insulin dependent DM - A1C 8.9 (07/2021); SSI AC/HS. 11. Hypothyroidism - continue synthroid 12. PPx - DVT PPx - Enoxaparin; GI PPx - proton pump inhibitor Family Communication: patient updated Prognosis Guarded correction EM 3 Active Hospital Problems Diagnosis ??? Diabetes mellitus type I ??? Suicide ideation ??? Pseudohyponatremia Resolved Hospital Problems No resolved problems to display. * Imelda Mclain MD - 09/15/2021 7:25 AM CDT CRITICAL CARE MEDICINE DAILY PROGRESS NOTE Reason for ICU admission: SI in setting of Hypertriglyceridemia ICU Timeline: Casandra Jones is a 45 y.o. female admitted 09/13/2021 with familial chylomicronemia, causing chronic recurrent pancreatitis 2-triglyceridemia, patient receives weekly plasmapheresis as outpatient through [facility] and follows up with Dr. Gates, insulin-dependent diabetes mellitus, GERD,PTSD, depression, hypothyroidism, PCOS. Patient presented to the ED on 09/16 2021 with suicidal ideation with a plan to overdose on her insulin. ?? Admitted 09/13/2021 ?? S/p plasma exchange 09/14/2021 ?? 2nd Plasma exchange 09/15/2021 ?? Significant followup items include: N/A Active Hospital Problems Diagnosis ??? Suicide ideation Resolved Hospital Problems No resolved problems to display. Assessment and Plan: Neuro/Psych: ?? Suicidal Ideation with Plan 1. [facility] consulted- evaluated patient 2. Suicide watch- sitter 3. Psych recommends inpatient treatment ?? Mood Disorder/MDD/PTSD/anxiety 1. Continue CHIEF INFORMATION OFFICER citalopram 40 mg daily 2. Continue CHIEF INFORMATION OFFICER bupropion 150 mg twice daily 3. Continue CHIEF INFORMATION OFFICER trazodone 100 mg daily at bedtime 4. Ativan PRN ?? Pain control - 1. Tylenol 2. Dilaudid for severe pain for pain >7 3. Oxy for pain score <7, every 6 hours scheduled Cardiovascular/Fluids: ?? GAYATHRI Pulmonary: ?? Allergies 1. Oral benadryl 2. ceterizine ?? GAYATHRI?? GI/NUT: ?? 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 Marlys Mayer 1. S/p Therapeutic Plasmapheresis 2. Triglycerides 1254 3. Scheduled for 2nd session of therapeutic Plasmapheresis today 4. Continue CHIEF INFORMATION OFFICER Rosuvastatin 5. Continue CHIEF INFORMATION OFFICER Fenofibrate 6. Blood bank consulted- Dr. Riddle seen the patient, and following 7. Pain control ?? H/o recurrent Chronic pancreatitis - ?? CT abdomen negative for acute pancreatitis, lipase normal ?? 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 GERD 1. Protonix ?? Diabetic Diet: advance as tolerated- low fat ?? Nutrition: Current Diet and/or Nutritional Supplementation ordered: DIET CLEAR LIQUID ?? Renal/LYTES/Acid-Base: ?? Pseudohyponatremia - in the setting of Hypertriglyceridemia: corrected: resolved ?? Glucosuria in setting of uncontrolled IDDM ?? 3mm non obstruction kidney Stone ?? Hypocalcemia: ?? repleted with calcium gluconate Infectious Disease: ?? GAYATHRI Hem/Onc/Coag: ?? lovenox Endocrine: ?? Uncontrolled hyperglycemia in IDDM; 08/24 A1c 8.9 ?? Insulin ACHS ?? Hypoglycemia pathway ?? Obesity ?? PCOS ?? Hypothyroidism 1. CHIEF INFORMATION OFFICER Synthroid Musculoskeletal/Skin: ?? GAYATHRI DVT prophylaxis: Lovenox 40 Mg s/c every 24 hours GI prophylexis:Protnix Disposition: ICU today- once medically cleared will go to Code Status:Full code Lines: two ports, one in each subclavian veins, 2PIVs Family communication: Subjective: 24 hour events-no overnight events Objective: Body mass index is 32.35 kg/m??. Current vital signs Blood pressure 96/64, pulse 88, temperature 98.9 ??F (37.2 ??C), temperature source Axillary, resp.rate 12, height 5' 5 (1.651 m), weight 88.2 kg (194 lb 6.4 oz), SpO2 97 %, not currently . 24 hour BP and temperature range BP: (71-127)/(42-72) Temp (24hrs), Av.5 ??F (36.9 ??C), Min:97.8 ??F (36.6 ??C), Max:99.4 ??F (37.4 ??C) Input/Output 09/13 1900 - 09/15 0659 In: 6702.2 [P.O.:1500; I.V.:5202.2] Out: 4119 [Urine:1425] Physical Exam ?? Gen:wella operating female in no acute distress. ?? Neuro: A/Ox4, ?? HEENT: At/NC,PERRLA, EOMI, no focal neurological deficit ?? Cardiac: RRR, S1-S2 audible, no MRG ?? Pulm: Clear to auscultation bilaterally ?? Abdomen: Left upper quadrant tenderness, no rebound, normal bowel sounds,negative mohit signs ?? Skin: Warm, dry, free of rashes ?? Extremities: No edema bilaterally Data Review: BMP: Recent Labs 09/13/21 1849 09/14/21 0009 09/14/21 1430 09/15/21 0509 GLUCOSE 281* 212* -- 181* BUN 12 12 -- 6 CREAT 0.53 0.57 -- 0.65 NA 127* 127* -- 136 K -- 4.5 -- 4.2 CL 90* 90* -- 103 CO2 22 22 -- 19* ANIONGAP 15 15 -- 14 CAIONIZED -- 4.6* 4.5* -- estimated creatinine clearance is 119.9 mL/min (by C-G formula based on SCr of 0.65 mg/dL). LFTs: Recent Labs 09/13/219 09/15/21 0509 ALKPHOS -- 45 ALT 16 10 AST 39* 14 BILITOTAL 0.3 0.3 ALBUMIN 4.6 4.4 LIPASE 33 -- CBC: Recent Labs 09/13/21 1849 09/14/21 0454 09/15/21 0509 WBC 9.1 5.7 5.4 HGB 12.8 11.3* 10.3* HCT 35.6 32.4* 31.8* PLT 293 240 188 MCV 90.1 94.5 94.4 Coagulation: Recent Labs 09/14/21 1034 PT 12.4* INR 0.9 ABG: Lab Results Component Value Date PHARTERIAL 7.28 (L) 10/29/2018 [id number] 42 10/29/2018 PO2ART 97 10/29/2018 [id number] 20 (L) 10/29/2018 BASEEXCESS -6.4 (L) 10/29/2018 Central VBG: No results found for: PHMIXEDVEN, [id number], [id number], [id number], MZ0DNIE Lactic acid: Lab Results Component Value Date/Time LACTATE 0.7 12/27/2020 04:20 AM LACTATE 1.9 02/16/2020 12:45 AM LACTATE 1.8 02/02/2019 01:37 AM LACTATE 1.1 07/31/2018 03:20 AM * Phoenix Riddle MD - 09/14/2021 6:02 PM CDT CC: ??45??yo female with with familial hypertriglyceridemia and recurrent pancreatitis admitted forpancreatitis.. ?? Interval history: Patient has not presented for outpatient plasma exchange since her most recent inpatient PLEX on 08/24/21. Per report, she stopped taking her medication and endorsed suicidal ideation. She presented to the ED due to worsening abdominal pain and suicidal ideation. The pheresis team was contacted to perform PLEX due to pancreatitis in the setting of hypertriglyceridemia. ?? Procedure note: 1.0 volume plasma exchange with 5% albumin replacement, 100% fluid balance, 1 g calcium gluconate during procedure.?Patient tolerated the procedure wellt. ?? 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 Exam: General Appearance: - Patient sedated and lethargic Skin: - Face puffy and pale, with particular puffiness of the eyelids. Respiratory: - Unlabored breathing Neuro: - Sedated but able to answer questions appropriately ?? Labs: 08/14/21 preprocedure triglycerides: ??>4425 mg/dL 08/14/21 postprocedure triglycerides: ??3440 mg/dL 08/15/21 preprocedure triglycerides: ??>4425 mg/dL 08/15/21 postprocedure triglycerides: ??1933 mg/dL 08/17/21 triglycerides:??>4425 mg/dL 08/21/21 preprocedure triglycerides:?>4425 mg/dL 08/21/21 postprocedure triglycerides:?2782 mg/dL 08/23/21 preprocedure triglycerides: >4425 mg/dL 08/23/21 postprocedure triglycerides: 2301 mg/dL 08/24/21 preprocedure triglycerides: >4425 mg/dL 08/25/21 triglycerides (no procedure): 2738 mg/dL 08/26/21 preprocedure triglycerides: 492 mg/dL 08/26/21 postprocedure triglycerides: 211 mg/dL 09/14/21 preprocedure triglycerides: >4425 mg/dL 09/14/21 postprocedure triglycerides: 1827 mg/dL ?? A&P: 1. 45??yo female with??recurrent??hypertriglyceridemic pancreatitis??requiring therapeutic plasma??exchange for acute episode of pancreatitis??(ASFA category III indication). 2. Triglyceride levels markedly elevated, though not particularly abnormal for her. Presumptive pancreatitis flare with worsening abdominal pain, will perform plasma exchange to rapidly decrease triglyceride levels, though she has also shown good response to medical management in the past. 3. 1.0 volume exchange, 5% albumin replacement, 100% fluid volume, 2 g calcium gluconate to be performed daily until triglycerides <500 mg/dL. 4.??Next procedure tomorrow 09/15/21. ?? I have??seen and examined the patient,??reviewed pertinent notes and records,??and remained immediately available throughout the procedure. ?? Phoenix Riddle MD [facility], therapeutic apheresis service [phone] * Rosales Tapia RN - 09/14/2021 3:33 PM CDT Plasma exchange completed using the right and left bard ports for access and return with 5% albuminas replacement fluids for a 1.0 volume exchange. * Imelda Mclain MD - 09/14/2021 12:38 PM CDT I tried to reach Mr. José Miguel Peña at [phone] to update him on status of Mrs. Peña. He did not answer the phone, I will make another attempt in couple of hours to reach Mr. Peña to update him on the status of Mrs. James health as well as her care plan going forward. * Erick Venegas MD - 09/14/2021 9:12 AM CDT [facility] ATTENDING Action Items for Hospitalist and/or PCP to follow - Endocrine consult - Dr Gates Please consider this note in addition to the Resident/Fellow/ENGRAVED ROLLER INSPECTOR/PAs note from today (as applicable). I have discussed the history, physical findings, laboratory findings, AND assessment and plan withthe resident/Fellow/ENGRAVED ROLLER INSPECTOR/PA and the patients RN and RT as applicable. COVID 19 test not done Reason for ICU Admission: Suicidal ideation; HyperTAG - familial 45 F admitted for suicidal ideation; had a plan; was going to take insulin and not wake up. Has hadideation in the past but no plan. PMHx - Familial CM; recurrent pancreatitis on plasmapharesis q2 weeks; Hypothyroidism and PCOS; PTSD; MDD Physical Examination findings include: Body mass index is 32.35 kg/m??. Gen: no distress Neuro: Awake; Oriented X 4; affect - monotonous; sad CV: S1; S2; regular rhythm Resp: Clear breath sounds B ant chest GI: LUQ pain; Soft, NT, BS +ve Ext: Bipedal edema no; Skin: No rashes on exposed surfaces; Assessment/Plan: 1. Suicide ideation - with plan; has had prior suicide ideation admissions; Psych has evaluated patient and think she will need inpatient psych admission; Continue suicide precautions; s/p hysterectomy -- so no urine preg test needed. 2. MDD - restarted on home meds - psych to manage 3. Pain control - staggered meds 4. Epigastric pain - ? Pancreatitis but no evidence of pancreatitis on CT or labs. 5. HyperTAG - continue home meds; Insulin gtt; chk on plasmapharesis. 6. Recurrent pancreatitis - based on hx. No active inflammation on Ct at this time. 7. GERD - PPI 8. Nutrition - advance diet as tolerated 9. Pseudohyponatremia - 2/2 hyper TAG 10. Insulin dependent DM - A1C 8.9 (07/2021) 11. Hypothyroidism - continue synthroid 12. PPx - DVT PPx - Enoxaparin; GI PPx - proton pump inhibitor Family Communication: patient updated Prognosis Guarded correction Critical care time of 30 minutes was spent with this patient excluding procedures or teaching. Active Hospital Problems Diagnosis ??? Suicide ideation Resolved Hospital Problems No resolved problems to display. * Imelda Mclain MD - 09/14/2021 6:57 AM CDT CRITICAL CARE MEDICINE DAILY PROGRESS NOTE Reason for ICU admission: SI in setting of Hypertriglyceridemia ICU Timeline: Casandra Jones is a 45 y.o. female admitted 09/13/2021 with familial chylomicronemia, causing chronic recurrent pancreatitis 2-triglyceridemia, patient receives weekly plasmapheresis as outpatient through [facility] and follows up with Dr. Gates, insulin-dependent diabetes mellitus, GERD,PTSD, depression, hypothyroidism, PCOS. Patient presented to the ED on 09/16 2021 with suicidal ideation with a plan to overdose on her insulin. ?? Admitted 09/13/2021 ?? Significant followup items include: N/A There are no hospital problems to display for this patient. Assessment and Plan: Neuro/Psych: ?? Suicidal Ideation with Plan 1. [facility] consult- evaluated patient and she will need in patient 2. Suicide watch- sitter ?? Mood Disorder/MDD/PTSD/anxiety 1. Continue CHIEF INFORMATION OFFICER citalopram 40 mg daily 2. Continue CHIEF INFORMATION OFFICER bupropion 150 mg twice daily 3. Continue CHIEF INFORMATION OFFICER trazodone 100 mg daily at bedtime 4. Ativan PRN ?? Pain control - 1. Tylenol 2. Dilaudid for severe pain for pain >7 3. Oxy for pain score <7, every 6 hours scheduled Cardiovascular/Fluids: ?? GAYATHRI Pulmonary: ?? Allergies 1. Oral benadryl 2. ceterizine ?? GAYATHRI ? GI/NUT: ?? 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 Marlys Mayer 1. Insulin Ggt for now with hypoglycemia pathway. 2. Rosuvastatin 3. Fenofibrate 4. Therapeutic Plasmaphoresis- Dr. Mayer does not have privilaeges at [facility]. Called blood bank- patient receives plasmaphoresis under donor services. Dr. Riddle called back - and he will put in orders and have her scheduled to receive TPX in the ICU today. 5. Pain control ?? H/o recurrent Chronic pancreatitis - ?? CT abdomen negative for acute pancreatitis, lipase normal ?? 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 GERD 1. Protonix ?? Diabetic Diet: advance as tolerated- low fat ?? Nutrition: Current Diet and/or Nutritional Supplementation ordered: DIET CLEAR LIQUID ? Renal/LYTES/Acid-Base: ?? Pseudohyponatremia - in the setting of Hypertriglyceridemia: corrected ?? Glucosuria in setting of uncontrolled IDDM ?? 3mm non obstruction kidney Stone ?? Hypocalcemia: ?? repleted with calcium gluconate Infectious Disease: ?? GAYATHRI Hem/Onc/Coag: ?? lovenox Endocrine: ?? Uncontrolled hyperglycemia in IDDM; 08/24a1c 8.9 ?? Insulin GGT ?? Hypoglycemia pathway ?? Obesity ?? PCOS ?? Hypothyroidism 1. CHIEF INFORMATION OFFICER Synthroid Musculoskeletal/Skin: ?? GAYATHRI ?? DVT prophylaxis: Lovenox 40 Mg s/c every 24 hours GI prophylexis:Protnix Disposition: Code Status:Full code Lines: two ports, one in each subclavian veins, 2PIVs Family communication: Subjective: 24 hour events-complain of left upper quadrant pain, receiving Dilaudidx2 Objective: Body mass index is 31.57 kg/m??. Current vital signs Blood pressure (!) 90/67, pulse 93, temperature 97.7 ??F (36.5 ??C), temperature source Oral, resp.rate 9, height 5' 5 (1.651 m), weight 86 kg (189 lb 11.2 oz), SpO2 96 %, not currently . 24 hour BP and temperature range BP: (90-146)/(65-96) Temp (24hrs), Av.9 ??F (36.6 ??C), Min:97.6 ??F (36.4 ??C), Max:98.2 ??F (36.8 ??C) Input/Output No intake/output data recorded. Physical Exam ?? Gen:wella operating female in no acute distress. ?? Neuro: A/Ox4, ?? HEENT: At/NC,PERRLA, EOMI, no focal neurological deficit ?? Cardiac: RRR, S1-S2 audible, no MRG ?? Pulm: Clear to auscultation bilaterally ?? Abdomen: Left upper quadrant tenderness, no rebound, normal bowel sounds,negative mohit signs ?? Skin: Warm, dry, free of rashes ?? Extremities: No edema bilaterally Data Review: BMP: Recent Labs 09/13/21 18409/14/21 0009 GLUCOSE 281* 212* BUN 12 12 CREAT 0.53 0.57 NA 127* 127* K -- 4.5 CL 90* 90* CO2 22 22 ANIONGAP 15 15 CAIONIZED -- 4.6* estimated creatinine clearance is 135 mL/min (by C-G formula based on SCr of 0.57 mg/dL). LFTs: Recent Labs 09/13/21 1849 ALT 16 AST 39* BILITOTAL 0.3 ALBUMIN 4.6 LIPASE 33 CBC: Recent Labs 09/13/21 1849 09/14/21 0454 WBC 9.1 5.7 HGB 12.8 11.3* HCT 35.6 32.4* PLT 293 240 MCV 90.1 94.5 Coagulation: No results for input(s): PT, INR, APTT in the last 72 hours. ABG: Lab Results Component Value Date PHARTERIAL 7.28 (L) 10/29/2018 [id number] 42 10/29/2018 PO2ART 97 10/29/2018 [id number] 20 (L) 10/29/2018 BASEEXCESS -6.4 (L) 10/29/2018 Central VBG: No results found for: PHMIXEDVEN, [id number], [id number], [id number], OL7LAEJ Lactic acid: Lab Results Component Value Date/Time LACTATE 0.7 12/27/2020 04:20 AM LACTATE 1.9 02/16/2020 12:45 AM LACTATE 1.8 02/02/2019 01:37 AM LACTATE 1.1 07/31/2018 03:20 AM Radiology: EXAMINATION: CT ABDOMEN PELVIS W CONTRAST HISTORY: abd pain, hx of pancreatitis TECHNIQUE: Computed tomography of the abdomen and pelvis was performed following the uneventful administration of intravenous contrast (IOPAMIDOL 61 % INTRAVENOUS SOLUTION (MULTI-DOSE BULK PACK) Given:120 mL) according to standard protocol. The examination was performed with the adjustment of mA according to the patient size and/or the use of Iterative 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 COMPARISON: 12/26/2020 FINDINGS: LUNG BASES: Within normal limits LIVER: Diffuse hepatic steatosis. BILE DUCTS: Nondilated. GALLBLADDER: Within normal limits. SPLEEN: Within normal limits. PANCREAS: Within normal limits. ADRENALS: Within normal limits. KIDNEYS/URETERS: A 3 mm stone in the right ureteropelvic junction without hydronephrosis but mild urothelial thickening in the renal pelvis. BOWEL: Normal in caliber. PERITONEUM/RETROPERITONEUM: Trace perisplenic ascites. No free air or enlarged lymph nodes. PELVIC ORGANS: Uterus is absent. Ovaries and bladder are within normal limits. VESSELS: Abdominal aorta is mildly atherosclerotic but normal in caliber. ABDOMINAL WALL: Within normal limits. BONES: No suspicious lytic or blastic lesions. ?? IMPRESSION: 1. A 3 mm right ureteropelvic junction stone with mild urothelial thickening but no hydronephrosis. 2. Trace perisplenic ascites, of unclear etiology. 3. Hepatic steatosis. * Kasey Galo RN - 09/14/2021 12:25 AM CDT UNDRESS and ASSESS for ALL ADMISSIONS and TRANSFERS Remove all existing dressings and assess all wounds upon admission (unless instructed by provider). on admission to Location(unit/floor)4212 Chin Score: Chin Score: 18 (09/14/21 0000) 1 Undress and Assess performed by bedside coworker Kasey RN and bedside coworker Ariane RN 2 Does the patient have any skin breakdown? No ??? Add an LDA for any wound for non-blanching pink/red or purple areas. ??? Assess all high risk areas: heels, ankles, knees, hips, sacrum, coccyx, ischium, gluteal, occiput, spine and all skin folds ??? Consult wound care services for all new pressure-related injuries If yes, ??? location(s) and description of breakdown: ??? Photograph wound, if applicable. 3 Is a specialty support surface in place? NA If yes, which one?: (examples: Low air loss air mattress, Roho, etc...) Patients with impaired mobility, bariatric, malnourished, existing pressure injury, are high considerations for specialty support surface. 4 Is the patient a paraplegic/quadriplegic? No If yes AND if stable spine immediately place on specialty surface and consult wound care services. If unstable spine or new spinal injury, defer to provider before specialty surface use. 5 Is a medical engineer present? no If yes, which one?: ??? Remove device/brace/splint to check skin underneath, obtain provider order if necessary. 6 Does the patient have a wound VAC (negative pressure wound therapy)? No If yes, please consult wound care services and switch VAC device to hospital VAC, if compatible. 7 Does the patient have an ostomy? No If yes, please consult wound care/ostomy services. (Add comment to consult if ostomy is problematic for patient.) 9 Was the Skin Prevention/ Pressure Injury Pathway initiated and appropriate interventions selected? N/A Use for prevention of skin issues due to friction, shear, pressure, mobility or moisture issues. 10 Was the Skin Care Treatment: Pressure Injury/Lower Extremity Ulcer Pathway initiated, and appropriate interventions selected? N/A Use for conditions such as: existing pressure injuries, yeast, deep tissue injury, incontinence associated dermatitis, lower extremity ulcers, and skin tears. 11 Wound care consult/ostomy care consult was not initiated. [facility] Skin Care Injury Prevention and Treatment Protocol [facility] Approved by: [facility] - Medical Executive Committee Approval Date: 05/14/2019 ORDERS ARE ENTERED ???PER PROTOCOL?? Nursing Orders: o When a patient age 18 years or older has: ? a documented Chin score of 18 or less or a Hcin sub score of 2 or 1, ? or a documented condition on the problem list of: diabetes, malnutrition or cachectic, paralysis,spinal cord disorder/injuries or muscle/neurological disease, THEN, the RN will order the Skin Care/Pressure Injury Prevention Pathway and initiate all appropriate interventions as per the Chin Risk Assessment Algorithm. o When a patient age 18 years or older has a wound requiring treatment, the RN and Wound Care Nurses may order the Skin Care/Pressure Ulcer/Lower Extremity Ulcer Treatment Pathway and use appropriatetreatments found in the Nursing Algorithm. o The Wound Care Nurse may also order treatments found in the Wound Care Algorithm. * Katey Hall MSW - 09/13/2021 8:29 PM CDT 20:29 - Intake spoke w/ Dr. Coyle. Per , pt has to go to ICU for Insulin drip. Unknown how long she will be admitted to ICU and if she will need reassessment for BH. As of right now, order is infor BH admission due to SI w/ plan and consent for BH admission has been signed by pt. * Katey Hall MSW - 09/13/2021 7:11 PM CDT Intake Evaluation Start Time: 17:53 Counselor Zone Phone: [phone] IDENTIFYING INFORMATION: Casandra Jones is a 45 y.o. female who presents for Behavioral Health Assessment and is located in ED (09/13/2021 5:53 PM) at [facility]. Is eval being completed virtually: No (09/13/211752). Patient presents With poultry hatchery man (Pt's , José Miguel Jones - [phone]) (09/13/2021 5:53 PM) and was brought in by Family/Friend (09/13/2021 5:53 PM) with referral by Dr. Guerrero Middleton - (09/13/2021 5:53 PM). LEGAL CUSTODY/GUARDIANSHIP/DURABLE POWER OF CELL ATTENDANT HELPER: Legal Status: Voluntary (09/13/211827) Legal Custody: Self (09/13/211752) SOURCES OF INFORMATION: Information obtained from: Patient;Spouse/significant other (09/13/211752) Forensic Science Technician(s) : José Miguel Jones, pt's , (09/13/211827) Release of Info Signed: [email or web address] signed: No (09/13/211827) Family/Caregiver Form: Offered to , José Miguel. He had a hard time reading the form and said he would try to fill it out later. Affidavits Present: No PSYCHIATRIC TREATMENT HX: Psychiatric Treatment Previous psychiatric diagnosis: Yes (09/13/211754) Describe previous diagnosis: Depression & Anxiety (09/13/211754) Inpatient psychiatric hospitalization: No (09/13/211754) Currently receiving treatment: No (09/13/211754) Other mental health services: Pt has no current providers. Primary Care Provider: Guerrero Middleton, [facility] CHIEF COMPLAINT: i'm so overwhelmed, I just can't handle it anymore. I could tell my depression was getting worse. They added Wellbutrin to my Celexa. This last semester, with my son, at school has been really rough. All 3 of my kids have been distant. Pt endorses thoughts of SI. Says yesterday and today, SI has been really bad. Pt stopped taking her medicine for her pancreatitis hoping she wouldn't wake up. Now her stomach is really hurting. She is unsure if she can continue w/ plasma phreysis tx and is scared how that will effect her. (09/13/2021 5:56 PM) Major stressors: Relationship stressor; Chronic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 Neuro: No weakness, no seizures Psych: No hallucinations, no acute change in mood, SI with plan, No HI Relevant Medical History Past Medical History: Past Medical History: Diagnosis Date ??? Anxiety [...] syndrome) 05/15/2011 ??? Smoker Past Surgical History: Past Surgical History: Procedure Laterality Date ??? [...] ESOPHAGOGASTRODUODENOSCOPY performed by Ceasar Vega MD at [facility] Home Medications: Patient's Home Medications Current Home Medications BUPROPION HCL (WELLBUTRIN SR) 150 MG SUSTAINED RELEASE 12 HOUR TABLET CITALOPRAM (CELEXA) 40 MG TABLET DEXCOM G6 SENSOR DEVICE DEXCOM G6 TRANSMITTER DEVICE DIPHENHYDRAMINE (BENADRYL) 25 MG TABLET EMPAGLIFLOZIN (JARDIANCE) 25 MG TABLET FENOFIBRATE (LOFIBRA) 160 MG TABLET FISH OIL-OMEGA-3 FATTY ACIDS 360-1,200 MG CAPSULE INSULIN ASPART U-100 (NOVOLOG FLEXPEN U-100 INSULIN) 100 UNIT/ML PEN SYRINGE INSULIN GLARGINE (BASAGLAR KWIKPEN U-100 INSULIN) 100 UNIT/ML PEN SYRINGE LEVOTHYROXINE 200 MCG TABLET LORAZEPAM (ATIVAN) 1 MG TABLET METFORMIN (GLUCOPHAGE) 1,000 MG TABLET ONDANSETRON (ZOFRAN ODT) 4 MG TABLET, RAPID DISSOLVE PANTOPRAZOLE (PROTONIX) 40 MG TABLET, DELAYED RELEASE (E.C.) ROSUVASTATIN (CRESTOR) 20 MG TABLET TRAZODONE (DESYREL) 100 MG TABLET VARENICLINE (CHANTIX) 0.5 MG TABLET VASCEPA 1 GRAM CAPSULE Medications Modified during this Encounter Medications Discontinued during this Encounter Allergies: Adhesive tape-silicones, Green pepper, Adhesive, and Aspartame Social History: reports that she has been smoking cigarettes. She has a 18.00 pack-year smoking history. She has never used smokeless tobacco. She reports that she does not drink alcohol and does not use drugs. Family History: family history includes Diabetes in her father, maternal grandmother, mother, and paternal grandmother; Heart Disease in her maternal grandmother and mother; High Cholesterol in her father and mother; Hypertension in her father; Stroke in her mother; Thyroid Disease in her mother. Physical Exam BP: (!) 146/96 (09/13/21 1635), Pulse: (!) 124 (09/13/21 1635), Resp: 20 (09/13/21 1635), Temp: 98.2 ??F (36.8 ??C) (09/13/21 1635), Temp src: Oral (09/13/21 1635) General: Alert, no obvious distress, tearful HEENT: Normocephalic, atraumatic, Throat clear, Nose without drainage, mucous membranes moist Neck: No JVD Back: Not tender in midline, no CVAT Chest Wall: No tenderness, injury or deformity Heart: RRR without murmur Lungs: CTA = Bilat Abdomen: Soft, non-tender, normal bowel sounds Rectal: Not performed Extremities: No edema, no calf tenderness Skin: No rash noted, no petechiae, no purpura Lymphatic: No lymphadenopathy noted Neuro: No facial droop, good and equal strength in all ext. Psychiatric: normal affect and mood. Other: Studies and Interpretation Pulse Oximetry Interpretation: Saturation: 97% Oxygen Delivery: Room Air Interpretation: Not hypoxic Initial Electrocardiogram (independent interpretation by Jose Coyle MD if performed): none Imaging (all imaging was independently reviewed by me if performed): No orders to display Lab: (Reviewed by me if performed), Significant for: Results for orders placed or performed during the hospital encounter of 09/13/21 (from the past 24 hour(s)) CBC WITH DIFFERENTIAL Result Value Ref Range WBC 9.1 4.0 - 9.8 K/uL RBC 3.95 3.90 - 4.90 M/uL HEMOGLOBIN 12.8 11.8 - 14.8 g/dL HEMATOCRIT 35.6 35.5 - 44.0 % MCV 90.1 82.0 - 99.0 fL MCH 32.4 27.2 - 32.6 pg MCHC 36.0 (H) 31.5 - 35.5 g/dL RDW 16.0 (H) 11.5 - 14.5 % RDW-STDEV 52.7 (H) 37.1 - 48.7 fL PLATELETS 293 140 - 350 K/uL MPV 9.4 9.3 - 12.4 fL NEUTROPHILS 71 % LYMPHOCYTES 23 % MONOCYTES 5 % EOSINOPHILS 1 % BASOPHILS 0 % IMMATURE GRANULOCYTES 1 % NEUTROPHIL ABSOLUTE 6.45 1.90 - 7.00 K/uL LYMPHOCYTE ABSOLUTE 2.11 0.70 - 4.50 K/uL MONOCYTE ABSOLUTE 0.41 0.10 - 1.30 K/uL EOSINOPHIL ABSOLUTE 0.07 0.00 - 0.70 K/uL BASOPHILS ABSOLUTE 0.03 0.00 - 0.20 K/uL IMMATURE GRANULOCYTES ABSOLUTE 0.05 (H) 0.00 - 0.03 K/uL LIPASE Result Value Ref Range LIPASE 33 13 - 60 U/L COMPREHENSIVE METABOLIC PANEL Result Value Ref Range SODIUM 127 (L) 136 - 145 mmol/L POTASSIUM CHLORIDE 90 (L) 98 - 107 mmol/L CO2 22 22 - 29 mmol/L CALCIUM 9.5 8.6 - 10.2 mg/dL BUN 12 6 - 20 mg/dL CREATININE 0.53 0.51 - 0.95 mg/dL GLUCOSE 281 (H) 74 - 99 mg/dL TOTAL PROTEIN 6.9 6.7 - 8.6 g/dL ALBUMIN 4.6 3.5 - 5.2 g/dL BILIRUBIN TOTAL 0.3 0.3 - 1.2 mg/dL ALKALINE PHOSPHATASE AST 39 (H) <33 U/L ALT 16 <34 U/L GFR >60 >=60 mL/min/1.73 sq meter ANION GAP 15 8 - 16 mmol/L TRIGLYCERIDE Result Value Ref Range TRIGLYCERIDE >4,425 (H) <150 mg/dL URINALYSIS WITH REFLEX CULTURE Specimen: Urine, clean catch Result Value Ref Range COLOR UA Yellow Pale to Dark Yellow CLARITY UA Clear Clear SPECIFIC GRAVITY UA 1.024 1.003 - 1.035 PH UA 5.0 5.0 - 8.0 LEUKOCYTE ESTERASE UA Negative Negative NITRITE UA Negative Negative PROTEIN UA 2+ (A) Negative GLUCOSE UA 3+ (A) Negative KETONES UA Trace (A) Negative UROBILINOGEN UA Normal <2.0 mg/dL BILIRUBIN UA Negative Negative BLOOD UA Negative Negative WBC UA 0-2 0 - 2 /hpf RBC UA 3-5 (A) 0 - 2 /hpf BACTERIA UA Negative Negative /hpf EPITHELIAL CELLS, URINE 6-10 (A) 0 - 5 /hpf Note: Some of these results may have resulted after patient discharge or admission to the hospital. Medical Decision Making and ED Course Medical Decision Makin y.o. female presenting w/ severe depression with suicidal ideation with plan to take all of her pills, which ironically she is not taking due to her depression, or adhering to her treatment for her hyper triglyceride related pancreatitis. Received GI evaluation recommended inpatient admission for her depression and suicidal ideation. Meanwhile, she is also having severe epigastric pain, check blood work including triglycerides which are markedly elevated. Her lipase is largely within normal limits, review of chart reveals the patient has had not very impressive lipase elevations with her previous bouts of pancreatitis she states her symptoms are consistent with acute on chronic pancreatitis. Plan IV fluids, pain control, likely insulin drip once additional lab work is appreciated. Given dramatic worsening abdominal pain, will also get a CT to rule out necrotizing process or other acute intra- abdominal issue. Progress Note(s) 5:07 PM: On initial evaluation, saw and examined the patient. Discussed plan for labs. Patient understands and agrees with the plan. ED provider and ED nurse verbally discussed patient plan of care at this time. 8:28 PM: Updated Katey, crisis coordinator, that the patient needs to be put on an insulin drip and be admitted to ICU. 8:30 PM: I have discussed the case with the admitting service (ICU fellow) including the patient's diagnosis, test results, medications and current condition. The admitting service will determine the inpatient plan for the patient. While I have assisted the attending with holding orders, it should be noted that care is transferred at the time the holding orders were placed and the admitting attending is now in charge of the patient's medical care Diagnosis: Encounter Diagnoses Code Name Primary? K85.90 Acute pancreatitis, unspecified complication status, unspecified pancreatitis type Yes Transfer to Unit: ICU under Dr. Solorzano Case Discussed: ICU fellow Procedures: none Medications Administered During the ED Stay from 09/13/2021 1619 to 09/13/20212050 Date/Time Order Dose Route Action 09/13/20212027 morphine 4 mg/mL injection 4 mg 4 mg IV Given 09/13/20212027 ondansetron (ZOFRAN) 4 mg/2 mL injection 4 mg 4 mg IV Given Amount and/or Complexity of Data Reviewed --I reviewed the labs and/or radiology studies, vital signs, and nursing notes. I agree with the nursing notes except as noted in the body of this record. --Clinical lab tests: ordered and reviewed --Independent visualization of images, tracings, or specimens (including EKGs): yes --Previous electrocardiograms reviewed: no --Reviewed past medical records: yes --Discuss the patient with other providers: yes Condition at disposition: Stable This note has been prepared by Anide Thompson acting as a scribe for Dr. Antwon Coyle on 09/13/2021t 8:51 PM. The scribe's documentation has been prepared under my direction and personally reviewed by me, Antwon Coyle, in its entirety on 09/13/21 at 8:51 PM. I confirm that the note above accurately reflects all work, treatment, procedures, and medical decision making performed by me. Note: This H+P was created with the aid of dictation software, thus there may be some word substitutions or errors. documented in this encounter Miscellaneous Notes * Care Plan - Christina Madlonado RN - 09/18/2021 7:56 AM CDT Patient admitted to 4/ . Clinical chart review of pt completed. Will hold on formal Care Management initial assessment until appropriate to determine DC needs. Care Management will continue to clinically review and follow with medical team and be available as needed. Kasia following. Christina Maldonado, RN, MSN,[facility] [employer] [facility] [phone] (cell) [phone] (office) Problem: Discharge Planning Goal: Identify discharge needs upon admission and through discharge Description: Outcome: Progressing * Care Plan - Bibiana Connor RN - 09/17/2021 4:21 PM CDT End of Shift Note: Medically cleared for behavioral health this AM --- Behavioral health intake was notified. Awaitingbed placement at this time. Has had some complaints of abdominal pain and is getting scheduled painmedication --- pain control goal of 2-3 per the patient. Neuro: (Denies desire to harm self today --- Remains on Suicide watch with a sitter at bedside --spouse at bedside this afternoon -- Resp: (On room air with sats greater than 92% with clear lung sounds CV: (ECG Rhythm--- has been in sinus rhythm today --- MAP have been greater than 65 GI: (No BM today -- given Senna this AM Endocrine: Current nutrition on a low fat/low cholesterol diet --- ate little this AM but much better at lunch -- Blood glucose AC/HS and on a sliding scale insulin Remember that if a patient has poor perfusion (cold fingers, TTM, or edema), do not obtain a capillary glucose sample. Instead obtain a venous or arterial sample and run it through the POC Nova glucose meter. : (urine output adequate -- Skin: (no signs of breakdown noted -- skin remains intact --- repositioning self without difficulty Sleep Evaluation: Sleeping during night? N/A CAM-ICU Negative Pathway Day 1 - Current (INTERDIS PW: SKIN/PRESSURE INJURY PREVENTION) Nutrition Management: Patient/health care delegate understands importance of adequate protein and fluid intake. Outcome: Not Met Variance GOAL NOT YET MET BUT PATIENT PROGRESSING TOWARD GOAL Activity/Rehab: Patient/health care delegate understands repositioning/offloading techniques or patient moves independently. Outcome: Not Met Variance GOAL NOT YET MET BUT PATIENT PROGRESSING TOWARD GOAL Pathway Day 3 - Current (INTERDIS PW: HYPERGLYCEMIA, ADULT) Nutrition Management: Patient maintaining appropriate carbohydrate selections with each meal. Outcome: Not Met Variance GOAL NOT YET MET BUT PATIENT PROGRESSING TOWARD GOAL Day 1 - Current ([facility] Pathway: Adult and Obstetrics) Patient, family, or healthcare designee is participating in individual care plan process Outcome: Met Patient, family, or healthcare designee understands side effects of medications Outcome: Met Pathway Day 1 - Current (INTERDIS PW: SKIN/PRESSURE INJURY PREVENTION) Skin Integrity/Integumentary: Interventions initiated to maintain intact skin. Patient maintains intact skin with Chin Score maintained or improved. Outcome: Met Bladder & Bowel Movement: Moisture management for incontinence initiated and maintained or patient is continent of urine/stool. Outcome: Met Pathway Day 3 - Current (INTERDIS PW: HYPERGLYCEMIA, ADULT) Metabolic: Maintain glucose between 110-180 mg/dL when receiving subcutaneous insulin and between 110-160 mg/dL when receiving IV insulin. Outcome: Met Symptom Management: Patient denies signs and symptoms of hyperglycemic or hypoglycemic events Outcome: Met Problem: Discharge Planning Goal: Identify discharge needs upon admission and through discharge Description: Outcome: Variance Problem: Pain, Potential/Actual Goal: Verbalizes/displays acceptable comfort level or baseline comfort level Description: Outcome: Progressing Problem: Infection Risk/Actual Goal: Infection Risk/Actual: Infection prevention, control, or resolution by discharge Description: Outcome: Progressing Problem: Safety/Fall Goal: Safety/Fall: Absence of fall, injury, harm during hospitalization Description: Outcome: Progressing Problem: Suicide Risk/Attempt Goal: Jail: Reduction of suicidal thoughts and absence of suicidal behavior throughout admission and establish a safety plan by discharge. Outcome: Progressing Problem: Cardiovascular Goal: Achieve optimal cardiovascular function by discharge or maintain baseline function Outcome: Progressing Problem: Nutrition/Endocrine Goal: Achieve optimal nutrition and fluid status to meet metabolic needs throughout hospitalization Outcome: Progressing Problem: Gastrointestinal Goal: Achieve optimal gastrointestinal function by discharge or maintain baseline function Outcome: Progressing Problem: Musculoskeletal Goal: Achieve optimal musculoskeletal function by discharge or maintain baseline function Outcome: Progressing Problem: Skin Goal: Maintain skin integrity and/or promote wound healing by discharge Outcome: Progressing Problem: Coping (Adult) Goal: Demonstrates effective coping mechanisms and psychosocial functioning throughout hospitalization Outcome: Progressing Problem: Mobility Goal: Absence of/Reduce Fall Risk r/t Mobility Deficits Description: Patient is a fall risk because of mobility deficits. A patient with mobility deficits is automatically at high risk for falls. Potential Interventions: 1. Schedule patient toileting to avoid emergency trips to the bathroom 2. If available, use floor mats next to bed or in front of chair when up 3. If applicable, remove floor mats when getting patient up and replace when leaving patient 4. Assistive devices as required, educate patient on correct use of device (walkers, shower chairs,lift equipment, etc.) 5. Exit bed on patient's strongest side 6. Gait belt easily accessible 7. Activate bed or chair alarm while in bed or up in chair 8. Get order for PT consult if appropriate 9. Patient requires 2 assist - bedpan and bed bath if 2 staff not available, bedside commode if 2 staff are available entire time 10. Slow progressive position changes if patient experiencing dizziness Outcome: Progressing Problem: Medications Goal: Absence of/Reduce Fall Risk r/t Medications Description: Patient is a fall risk because of medications (i.e. - BP meds, CV/CREDIT UNION FIELD EXAMINER meds, seizure meds, diuretics, pain meds, psych [...] Appropriate lighting for day/night Outcome: Progressing Problem: Cognitive/Perceptual/Neuro Goal: Achieve optimal cognitive/perceptual/neurological function by discharge or maintain baseline function Outcome: Progressing Problem: Respiratory Goal: Achieve optimal respiratory function by discharge and/or maintain baseline function Outcome: Progressing Problem: Peripheral Neurovascular Goal: Achieve optimal peripheral neurovascular function by discharge or maintain baseline function Outcome: Progressing Problem: Spiritual/Cultural Goal: Identify spiritual/cultural needs to support beliefs and values throughout hospitalization Outcome: Progressing * Care Plan - Marianna Purvis GN - 09/15/2021 7:50 PM CDT End of Shift Note: [employer] Accounts Manager Neuro: Q4 checks maintained, A&Ox4, FC / SPARKS, PERRL 3mm, denies pain - PRN 7.5 mg oxy not given, 5 mg scheduled Oxy given four times daily, very cooperative / withdraw - patient anxious and hopeless - C-SSRS score: High Resp: Room air to 2L, clear lung sounds, snoring while asleep CV: NSR 70s-80s, SBP 90s-100s, 2/2, afebrile, SubQ Lovenox GI/: Low saturated fat/low cholesterol diet, decreased appetite, urine OP adequate - ambulates with no issues to the bathroom (with supervision), BM CHIEF INFORMATION OFFICER - refuses bowel regimen - patient educated, AC/HS Accu checks with sliding scale Skin: No skin issues Sleep Evaluation: Sleeping between care - CAM ICU Negative Medication titrations/Procedures/Labs/Diagnostic Tests: Transfer to [facility] pending triglyceride levels Patient Goals Not Met: See pathway outcomes below Pathway Day 1 - Current (INTERDIS PW: SKIN/PRESSURE INJURY PREVENTION) Nutrition Management: Patient/health care delegate understands importance of adequate protein and fluid intake. Outcome: Not Met Pathway Day 2 - Current (INTERDIS PW: HYPERGLYCEMIA, ADULT) Metabolic: Maintain glucose between 110-180 mg/dL when receiving subcutaneous insulin and between 110-160 mg/dL when receiving IV insulin. Outcome: Not Met Day 1 - Current ([facility] Pathway: Adult and Obstetrics) Patient, family, or healthcare designee is participating in individual care plan process Outcome: Met Patient, family, or healthcare designee understands side effects of medications Outcome: Met Pathway Day 1 - Current (INTERDIS PW: SKIN/PRESSURE INJURY PREVENTION) Skin Integrity/Integumentary: Interventions initiated to maintain intact skin. Patient maintains intact skin with Chin Score maintained or improved. Outcome: Met Bladder & Bowel Movement: Moisture management for incontinence initiated and maintained or patient is continent of urine/stool. Outcome: Met Activity/Rehab: Patient/health care delegate understands repositioning/offloading techniques or patient moves independently. Outcome: Met Pathway Day 2 - Current (INTERDIS PW: HYPERGLYCEMIA, ADULT) Nutrition Management: Patient maintaining appropriate carbohydrate selections with each meal. Outcome: Met Symptom Management: Patient denies signs and symptoms of hyperglycemic or hypoglycemic events Outcome: Met Problem: Nutrition/Endocrine Goal: Achieve optimal nutrition and fluid status to meet metabolic needs throughout hospitalization Outcome: Variance Problem: Coping (Adult) Goal: Demonstrates effective coping mechanisms and psychosocial functioning throughout hospitalization Outcome: Variance Problem: Pain, Potential/Actual Goal: Verbalizes/displays acceptable comfort level or baseline comfort level Description: Outcome: Progressing Problem: Infection Risk/Actual Goal: Infection Risk/Actual: Infection prevention, control, or resolution by discharge Description: Outcome: Progressing Problem: Safety/Fall Goal: Safety/Fall: Absence of fall, injury, harm during hospitalization Description: Outcome: Progressing Problem: Discharge Planning Goal: Identify discharge needs upon admission and through discharge Description: Outcome: Progressing Problem: Suicide Risk/Attempt Goal: Jail: Reduction of suicidal thoughts and absence of suicidal behavior throughout admission and establish a safety plan by discharge. Outcome: Progressing Problem: Cardiovascular Goal: Achieve optimal cardiovascular function by discharge or maintain baseline function Outcome: Progressing Problem: Gastrointestinal Goal: Achieve optimal gastrointestinal function by discharge or maintain baseline function Outcome: Progressing Problem: Musculoskeletal Goal: Achieve optimal musculoskeletal function by discharge or maintain baseline function Outcome: Progressing Problem: Skin Goal: Maintain skin integrity and/or promote wound healing by discharge Outcome: Progressing Problem: Mobility Goal: Absence of/Reduce Fall Risk r/t Mobility Deficits Description: Patient is a fall risk because of mobility deficits. A patient with mobility deficits is automatically at high risk for falls. Potential Interventions: 1. Schedule patient toileting to avoid emergency trips to the bathroom 2. If available, use floor mats next to bed or in front of chair when up 3. If applicable, remove floor mats when getting patient up and replace when leaving patient 4. Assistive devices as required, educate patient on correct use of device (walkers, shower chairs,lift equipment, etc.) 5. Exit bed on patient's strongest side 6. Gait belt easily accessible 7. Activate bed or chair alarm while in bed or up in chair 8. Get order for PT consult if appropriate 9. Patient requires 2 assist - bedpan and bed bath if 2 staff not available, bedside commode if 2 staff are available entire time 10. Slow progressive position changes if patient experiencing dizziness Outcome: Progressing Problem: Medications Goal: Absence of/Reduce Fall Risk r/t Medications Description: Patient is a fall risk because of medications (i.e. - BP meds, CV/CREDIT UNION FIELD EXAMINER meds, seizure meds, diuretics, pain meds, psych [...] Appropriate lighting for day/night Outcome: Progressing Problem: Cognitive/Perceptual/Neuro Goal: Achieve optimal cognitive/perceptual/neurological function by discharge or maintain baseline function Outcome: Progressing Problem: Respiratory Goal: Achieve optimal respiratory function by discharge and/or maintain baseline function Outcome: Progressing Problem: Peripheral Neurovascular Goal: Achieve optimal peripheral neurovascular function by discharge or maintain baseline function Outcome: Progressing * Therapy Evaluation - Ursula Cartagena, Occupational Therapist - 09/15/2021 12:44 PM CDT Occupational Therapy order received, chart reviewed, and evaluation completed. Please see full evaluation below for details. Daily OT notes will be located in Care Plan notes. Thank You. OT INITIAL EVALUATION Reason for Admission: Suicidal ideation Ordered by: Teddy DO Activity Order: Activity As tolerated Weight Bearing Status: None listed Precautions: Fall; suicide precautions PMH: Past Medical History: Diagnosis Date ??? Anxiety [...] PCOS (polycystic ovarian syndrome) 05/15/2011 ??? Smoker S: Patient agreeable to therapy. Patient reports 6/10 pain. Pain intervention: Unneccessary movement avoided, Repositioned for comfort, Premedicated for activity, RN aware Response to pain intervention: Verbalized relief, Appeared content Living Situation/Functional Level CHIEF INFORMATION OFFICER: Pt lives with and son in a multi level duplex. Bed/bath on main level, 1 step to enter. Pt independent with mobility, denied use of AD/history of falls Home Equipment: None O: Appearance: 45 yo, female, supine in bed, IV, telemetry Vision: no complaints Cognition/Perception: Alert and oriented x4 UE ROM: WFL Muscle Tone: WFL UE Strength: WFL Coordination: right Hand Dominant: WFL Sensation: reacts to touch Skin Integrity: no concerns noted at visible skin areas FUNCTIONAL ACTIVITIES ASSESSMENT: Feeding: (I) per pt. Report Grooming: SBA for hygiene and tomas care after toileting. SBA to wash upper and lower body parts during sponge bath while sitting at sink. SBA to brush teeth and wash hands. Increased time taken for grooming tasks UE Dressing: SBA to don/doff hospital gown LE Dressing: SBA to don/doff socks Toilet Transfer: SBA for functional transfer without device Functional Mobility: SBA supine <> sit EOB. SBA sit <> stand. SBA ambaulting without device ~30ft, no LOB noted Positioning after tx: Supine in bed, RN aware, alarm on, HOB raised, BUE/LEs elevated, all lines intact Patient/Family Education: Role of OT Equipment needed at DC: none A: Disabilities: Pt. independent with ADLs and mobility at this time Assessment: No further skilled OT needed due to functional with basic ADLs and mobility at this time EVALUATION COMPLEXITY: Low Complexity -These findings are based on patient's self reporting, therapist's objective findings and professional determinations. Recommend: Post acute care;Other (comment in note) (post acute for psych vs home with 24/7 supervision) (09/15/21 1005) Recommendations were made on today's assessment. Additional recommendations will be based on patient's progress in therapy. P: OT to see patient: none at bedside Pt. To be discharged from OT due to functional with ADLs and mobility --Patient involved in goal setting: yes Patient goals will be found in the Care Plan section of the medical chart. Zone #: [id number] On weekends--please call [phone] * Therapy Evaluation - Ligia Retana Physical Therapist - 09/15/2021 11:26 AM CDT Physical Therapy order received, chart reviewed, and evaluation completed. Please see full evaluation below for details. Daily PT notes will be located in Care Plan notes. Thank You. PT INITIAL EVALUATION Reason for Admission: Suicidal ideation Ordered by: Teddy REHMAN Activity Order: Activity As tolerated Weight Bearing Status: None listed Precautions: Fall; suicide precautions PMH: Past Medical History: Diagnosis Date ??? Anxiety [...] PCOS (polycystic ovarian syndrome) 05/15/2011 ??? Smoker S: Patient agreeable to therapy. Patient reports 5-6/10 pain. Pain intervention: Unneccessary movement avoided, Repositioned for comfort Response to pain intervention: Appeared content, Agrees to continue Living Situation/Functional Level CHIEF INFORMATION OFFICER: Pt lives with and son in a multi level duplex. Bed/bath on main level, 1 step to enter. Pt independent with mobility, denied use of AD/history of falls Home Equipment: None O: Appearance: Supine in bed with PIV and tele monitor. Sitter at bedside Cognition/Perception: Alert and oriented x4, followed multi step commands Skin Integrity: Intact in observed regions ROM: Bilateral Lower Extremity WFL Muscle Tone: WFL Strength: Bilateral Lower Extremity WFL Sensation: Intact to light touch MOBILITY ASSESSMENT: Bed Mobility: Indep supine<>sit Transfers: Indep sit<>Stand Gait: SBA ~75ft in room, pt ambulated with good strength/balance, cues for navigation and line management --Gait Deviations: decreased leah Balance: Good static seated/standing Stairs/Curb: Not formally tested- demonstrated good single limb strength/balance to navigate step Exercises: Bilateral LE AROM x 10 reps, standing Type: Standing exercises: hip flexion --LE ROM performed to increase ROM, increase strength, increase muscular endurance, prevent loss ofjoint mobility to promote independence with functional mobility and gait. Patient/Family Education: Fall prevention, PT role Other: Pt tolerated session well. No acute PT deficits demonstrated Positioning after tx: Supine in bed with all needs in reach, sitter in room. A: Disabilities: no acute PT needs. Assessment: D/C PT Clinical Presentation: Stable and/or uncomplicated EVALUATION COMPLEXITY: Low Complexity -These findings are based on patient's self reporting, therapist's objective findings and professional determinations. Recommend: Home with supervision (09/15/211125) Recommendations were made on today's assessment. Additional recommendations will be based on patient's progress in therapy. P: PT to see patient: D/C PT Recommendations: For: Patient, Family, Nursing --OOB to chair with chair alarm, ambulate in room or hallway, with assist Equipment to be issued at DC: No new DME recommended (09/15/211125) --Patient involved in goal setting: yes Patient goals will be found in the Care Plan section of the medical chart. Zone #: [id number] On weekends--please call [phone] * Care Plan - Ligia Nash RN - 09/14/2021 6:45 PM CDT End of Shift Note: [id number] Neuro: A&Ox4; c/o pain this AM in abdomen 10/06 and received one dose of scheduled oxycodone; ptslept most of the day and other pain medications held; pt denies SI; remains on suicide precautions Resp: 2 L NC; pt desaturates to mid 80s when sleeping without O2 CV: HR stable; Afebrile; SBP 80-90s today; MAPS >65; Nicom done after SBP in 70s; pt fluid responsive with 500 mL bolus; no addition fluid ordered GI: advanced to low fat diet; poor appetite today- pt had one broth and hot tea for breakfast, declined lunch, and is not yet eating her dinner at bedside because she is sleepy Endocrine: insulin gtt on today at 9 Units/hr; dextrose fluids added for blood glucose levels; q1 blood glucose checks; insulin gtt stopped when plasmapheresis started this afternoon and dextrose gttstopped as well : pt up to bathroom one time to void this afternoon; pt states she usually goes to the bathroom x2/day and that is not unusual for her Skin: refusing benadryl cream today after denying itching Medication titrations/Procedures/Labs/Diagnostic Tests: three doses of calcium gluconate given IVPBtoday updated on phone by RN. Pathway Day 1 - Current (INTERDIS PW: SKIN/PRESSURE INJURY PREVENTION) Nutrition Management: Patient/health care delegate understands importance of adequate protein and fluid intake. Outcome: Not Met Pathway Day 1 - Current (INTERDIS PW: HYPERGLYCEMIA, ADULT) Metabolic: Maintain glucose between 110-180 mg/dL when receiving subcutaneous insulin and between 110-160 mg/dL when receiving IV insulin. Outcome: Not Met Nutrition Management: Patient maintains appropriate carbohydrate selections with each meal. Outcome: Not Met * Therapy Evaluation - Darío Le, Physical Therapist - 09/14/2021 10:00 AM CDT PT eval order received, chart reviewed, patient refused therapy. PT will continue to follow up and complete evaluation when patient is ready to participate. #[id number] * Therapy Evaluation - Fadia Gonzalez, Occupational Therapist - 09/14/2021 9:40 AM CDT OT orders received. Pt currently sleeping but wakes up when OT enters room. Pt educated on OT but pt requesting to keep sleeping due to feeling tired this morning. Will continue to follow. Thank you. * Treatment Plan - Henrietta Saenz RT - 09/13/2021 10:43 PM CDT Images from the original note were not included. STL IMS CT MRI Medication and Flush Protocol [facility] Approved by: [facility] - Medical Executive Committee Approval Date: 07/13/2021 ORDERS ARE ENTERED ???PER PROTOCOL?? Enter the protocol in the patient's electronic health record using [employer]: .imagingctmriprotocol Communication Orders: o For ordered imaging procedures requiring intravenous access: ? Initiate a peripheral IV, if not already in place, and discontinue IV prior to discharge (if outpatient). ? Enter order if needed: Insert Peripheral IV o Bariatric Oral Contrast: Post-surgical bariatric patients will have markedly reduced ability to drink normal quantities of liquid. ??? Four ounces will be the maximum amount or less if the patient cannot comfortably tolerate. ??? Cancel oral contrast if patient is nauseated or vomiting. ??? Water based contrast only. Medication Orders: o Local Anesthetic for use to initiate IV ADULT ??? Lidocaine 4% (L.M.X.4) applied topically ONE TIME prior to IV catheter insertion PRN (L.M.X.4 %should be applied 15 minutes prior to procedure) PEDIATRIC ??? Lidocaine 4% (L.M.X.4) applied topically ONE TIME prior to IV catheter insertion PRN (apply 30 minutes prior to procedure) ??? Sucrose 24% (Squirts) given PO prior to IV catheter insertion (administer 1 - 2 minutes prior to procedure) OR ??? Sucrose 24% (Tootsweet; Sweet-Ease) oral solution 0.2 mL oral (apply to tongue on pacifier or clean, gloved finger), ONE TIME 2 minutes prior to painful procedure. May repeat dose x1 PRN to complete procedure. o Sodium chloride 0.9% (normal saline) flush 10 mL PRN for saline lock or medication administration. o For respiratory distress, initiate oxygen and/or increase O2 to maintain saturation greater than 90% o For all invasive procedures: obtain Lidocaine 1% for intra-procedure administration. If Lidocaine1% unavailable, may substitute Lidocaine 2%. PROCEDURE SPECIFIC CT MEDICATIONS Any exceptions to these contrast protocols must be approved by a Radiologist and documented in the EHR Progress Notes. When multiple medications are listed with the comment ???OR?? them, select the first option until challenges from product availability make this option unavailable. Cystogram (CT Pelvis): Iopamidol (Isovue 300) 61%, 50mL, diluted with 250mL of sterile NS. Inject Isovue into 250mL bag ofNS. Clamp swenson catheter prior to instilling solution via catheter. o Instill up to 300mL of Isovue and NS solution into bladder via catheter, one time. CT ORAL CONTRAST PROTOCOLS FOR ADULTS ??? Use Iohexol (Omnipaque) 240 mg/mL for CT scan unless patient has a documented allergy to contrast dye. ??? If allergy present, use Barium Sulfate (EZ Paque) for procedure. o Iopamidol (Isovue 300) 300mg/ml: 30ml added to 960mL of clear liquid of patient's choice. Preferred route is oral. May use nasoenteric tube if needed. OR o Iohexol (Omnipaque) 240 mg/mL: 50ml added to 960mL of clear liquid of patient's choice. Preferredroute is oral. May use nasoenteric tube if needed. ??? Administer 900mL of the diluted Omnipaque 240, orally, one time only. o Barium Sulfate (EZ Paque /Vanilla Silq) 96% oral suspension: Preferred route is oral. May use nasoenteric tube if needed. ??? Administer 900mL of barium sulfate, orally, one time only. CT ORAL CONTRAST PROTOCOLS FOR PEDIATRICS Pediatrics = up to age 18 o Pediatric Radiologist will approve of one of the following products selected for procedure. ??? Barium Sulfate (EZ Paque) 96% oral suspension: preferred route is oral. May use nasoenteric tube if needed. Morgan to 3 months Administer up to 90mL of Barium sulfate, orally, one time only 4 months to 1 year old Administer up to 240mL of Barium sulfate, Orally, One Time Only 1 year old to 5 years old Administer up to 360mL of Barium sulfate, Orally, One Time Only 5 years old to 10 years old Administer up to 480mL of Barium sulfate, Orally, One Time Only Over 10 years old Administer up to 600mL of Barium sulfate, Orally, One Time Only ??? Iopamidol (Isovue 300) 300 mg/mL oral solution ? Dilute 25mL of Iohexol with 480mL of clear liquid of patient's choice. Administer the diluted solution per age as follows: Preferred route is orally. May use nasoenteric tube if needed. ? Send any remaining diluted Iohexol solution with the patient's nurse to CT Iopamidol (Isovue) 300 mg/ml oral solution age appropriate guidelines Administer 45mL of diluted Iopamidol oral solution, orally every 30 minutes x 2 doses. 1 month to 1 year old Administer 120mL of diluted Iopamidol oral solution, orally every 30 min x 2 doses. 1 year old to 5 years old Administer 180mL of diluted Iopamidol oral solution, orally every 30 min x 2 doses. 5 years old to 10 years old Administer 240mL of diluted Iopamidol oral solution, orally every 30 min x 2 doses. Over 10 years old Administer 245mL of diluted Iopamidol oral solution, orally every 30 min x 2 doses. OR Iohexol (Omnipaque) 240 mg/mL oral solution ? Dilute 25mL of Iohexol with 480mL of clear liquid of patient's choice. Administer the diluted solution per age as follows: Preferred route is orally. May use nasoenteric tube if needed. ? Send any remaining diluted Iohexol solution with the patient's nurse to CT Iohexol (Omnipaque) 240mg/ml oral solution age appropriate guidelines ? Morgan ? Administer 45mL of diluted Iohexol oral solution, orally every 30 minutes x 2 doses. ? 1 month to 1 year old ? Administer 120mL of diluted Iohexol oral solution, orally every 30 min x 2 doses. ? 1 year old to 5 years old ? Administer 180mL of Iohexol orally every 30 min x 2 doses. ? 5 years old to 10 years old ? Administer 240mL of Iohexol orally every 30 min x 2 doses. ? Over 10 years old ? Administer 250mL of Iohexol orally every 30 min x 2 doses. ? CT RECTAL CONTRAST PROTOCOLS ADULTS: o Iopamidol (Isovue) 300 mg/mL: Dilute 30mL of Isovue with 900mL of warm water in an enema bag. Administer the diluted solution rectally via gravity per patient's tolerance, up to 950mLs, one time only. OR o Iohexol (Omnipaque) 240 mg/mL: Dilute 50mL of Omnipaque with 900mL of warm water in an enema bag.Administer the diluted solution rectally via gravity per patient's tolerance, up to 950mLs, one time only. CT IV CONTRAST PROTOCOLS for ADULT ADULTS: (If patient is less than 55kg and confirm dose with radiologist) o Iopadmidol (Isovue-300): Administer 2.2mL/kg of Iopamidol 61%, intravenously, one time only. o See table below for maximum dose, unless otherwise authorized by radiologist. If exam has been completed before the entire dose has been administered, stop the injection. o Multiple doses of iodine contrast within a 24-hour period are a risk factor for AGUSTÍN and should beavoided if possible. Emergent or other unusual circumstances where multiple doses of contrast are required in a short interval time should prompt consideration by the referring professional and radiologist to discuss the risks and benefits of contrast media administration. o If exam not included in table below, contact radiologist for orders. Procedure Maximum Dose CT Head with Contrast Up to [address] Chest with Contrast Up to [address] Maxillofacial with Contrast Up to [address] Soft Tissue Neck with Contrast CT Chest Abdomen Pelvis with Contrast CT Chest Abdomen with Contrast CT Abdomen Pelvis with Contrast CT Pelvis with Contrast CT Angiogram Examinations (all) CT Soft Tissue Neck and Chest Abdomen Pelvis with Contrast Up to [address] Soft Tissue Neck and Chest with Contrast CT Urogram with Contrast CT IV CONTRAST PROTOCOLS for PEDIATRICS PEDIATRICS: Use weight-based dosing if patient is less than 55kg and confirm dose with radiologist. Morgan to 15 years old Administer 2.2mL/kg (to MAX of 80 mL) of Iopamidol (Isovue-300) 61%, intravenously, one time only 15 years old and older Administer 2.2mL/kg (to MAX of 150mL) of Iopamidol (Isovue-300) 61%, intravenously, one time only PROCEDURE SPECIFIC MRI MEDICATIONS: MRI ENTEROGRAPHY: GLUGACON ADMINISTRATION ADULTS: (patient 18 years or older) o Patient will receive 2 doses of Glucagon one dose 0.5mg IM administered by RN prior to the MRI exam beginning 2nd dose 0.5mg IV prior to the IV contrast being administered. (If the patient is diabetic call the radiologist to verify administration of Glucagon) PEDIATRICS: If the patient is diabetic call the radiologist to verify administration of Glucagon o Pediatric patient weighing 24.9 kg or less should have one dose of Glucagon 0.5mg IM administeredby RN prior to MRI exam beginning. o Pediatric patient weighing 25 kg or greater should have one dose of Glucagon 1 mg IM administeredby RN prior to the MRI exam beginning. MRI UROGRAM: LASIX ADMINISTRATION ADULTS: Call radiologist with any questions regarding administration of Lasix o Lasix 0.1mg per kg with a minimum dose of Lasix 5mg IV being given up to a max dose of Lasix 10mgIV being given. The Lasix should be administered by RN prior to the IV contrast being administered. ??? (Hold Lasix if: obstruction, anuria and hypersensitivity to furosemide, and electrolyte imbalance or hypotension should be corrected by RN before administering) MRI IV CONTRAST PROTOCOLS ADULTS: Multihance and Prohance can be used for most MRI scans Prohance should be used primarily. Multihance is useful in specific circumstances as directed by the radiologist or per the appropriate sections established protocols. Group I gadolinium contrast agents shall not be administered. Generally, multiple doses of gadolinium contrast should not be administered within a 24-hour period. In emergent or other unusual circumstances where this is necessary, only Group II agents should beadministered. For Liver Studies: Contact radiologist to determine use of one of the following: ??? Gadobenate Dimeglumine (Multihance) (0.1mmol/0.2mL), Administer 0.1mmol/kg = 0.2mL/kg up to MAXof 20 mL, intravenously, one time only ??? Gadoteridol (Prohance) (0.1mmol/0.2mL), Administer 0.1mmol/kg = 0.2mL/kg up to MAX of 20mL, intravenously, one time only ??? Gadoxetate (Eovist) (2.5 mmol/10mL), Administer 0.025mmol/kg = 0.1mL/kg up to MAX of 10mL, intravenously, one time only PEDIATRICS: Radiologist to determine need for contrast Term neonates up to 2 years: Gadobuterol (Gadavist) (1mmol/mL injection), Administer 0.1mmol/kg = 0.1mL/kg up to MAX of 14mmol=14mL, intravenously, one time only OR Gadobenate Dimeglumine (Multihance) (0.1mmol/mL), Administer 0.1mmol/kg = 0.1mL/kg up to MAX of 14mmol = 14mL, intravenously, one time only 2 years and older Gadobenate Dimeglumine (Multihance) (0.1mmol/0.2mL), Administer 0.1mmol/kg = 0.2mL/kg up to MAX of 20mL, intravenously, one time only OR Gadoteridol (Prohance) (0.1mmol/0.2mL), Administer 0.1mmol/kg = 0.2mL/kg up to MAX of 20mL, intravenously, one time only TABLE 1. ACR Manual Classification of Gadolinium-Based Agents Relative to Nephrogenic Systemic Fibrosis Group I: Agents associated with the greatest number of NSF cases: o Gadodiamide (Omniscan?? - iMapData) o Gadopentetate dimeglumine (Magnevist?? - GlassUp) o Gadoversetamide (OptiMARK?? - Guerbet) Group II: Agents associated with few, if any, unconfounded cases of NSF: o Gadobenate dimeglumine (MultiHance?? - Winerist) o Gadobutrol (Gadavist?? - GlassUp; Gadovist in many countries) o Gadoteric acid (Dotarem?? - Guerbet, Clariscan - iMapData) Gadoteridol (ProHance?? - Winerist) Group III: Agents for which data remains limited regarding NSF risk, but for which few, if any unconfounded cases of NSF have been reported: Gadoxetate disodium (Eovist - GlassUp; Primovist in many countries) documented in this encounter Plan of Treatment Upcoming Encounters Date Type Department Care Team (Late st Contact Info) Description 09/14/2024 3:00 PM CDT Office Visit [facility] - [facility] [phone] [place] [address] Marlys Mayer MD [address] [place] [address] documented as of this encounter Procedures Procedure Name Priority Date/Time Associated Diagnosis Comments POC GLUCOSE Routine 09/20/2021 12:51 PM CDT POC GLUCOSE Routine 09/20/2021 10:09 AM CDT POC GLUCOSE Routine 09/19/2021 8:33 PM CDT POC GLUCOSE Routine 09/19/2021 6:17 PM CDT POC GLUCOSE Routine 09/19/2021 12:53 PM CDT POC GLUCOSE Routine 09/19/2021 8:46 AM CDT CBC WITH DIFFERENTIAL Routine 09/19/2021 4:11 AM CDT COMPREHENSIVE METABOLIC PANEL Routine 09/19/2021 4:11 AM CDT POC GLUCOSE Routine 09/18/2021 9:56 PM CDT POC GLUCOSE Routine 09/18/2021 5:55 PM CDT POC GLUCOSE Routine 09/18/2021 1:22 PM CDT POC GLUCOSE Routine 09/18/2021 9:42 AM CDT CBC WITH DIFFERENTIAL Routine 09/18/2021 5:31 AM CDT COMPREHENSIVE METABOLIC PANEL Routine 09/18/2021 5:31 AM CDT POC GLUCOSE Routine 09/18/2021 2:08 AM CDT POC GLUCOSE Routine 09/17/2021 10:47 PM CDT POC GLUCOSE Routine 09/17/2021 6:33 PM CDT POC GLUCOSE Routine 09/17/2021 12:39 PM CDT POC GLUCOSE Routine 09/17/2021 9:18 AM CDT CBC WITH DIFFERENTIAL Routine 09/17/2021 5:20 AM CDT TRIGLYCERIDE Routine 09/17/2021 5:20 AM CDT COMPREHENSIVE METABOLIC PANEL Routine 09/17/2021 5:20 AM CDT POC GLUCOSE Routine 09/17/2021 2:14 AM CDT POC GLUCOSE Routine 09/16/2021 8:34 PM CDT POC GLUCOSE Routine 09/16/2021 7:06 PM CDT POC GLUCOSE Routine 09/16/2021 2:20 PM CDT TYPE AND SCREEN Stat 09/16/2021 11:26 AM CDT Hypertriglyceridem ia PREPARE FRESH FROZEN PLASMA Routine 09/16/2021 10:33 AM CDT PREPARE FRESH FROZEN PLASMA Stat 09/16/2021 10:33 AM CDT Hypertriglyceridem ia POC GLUCOSE Routine 09/16/2021 9:11 AM CDT CBC WITH DIFFERENTIAL Routine 09/16/2021 4:16 AM CDT TRIGLYCERIDE Routine 09/16/2021 4:16 AM CDT MAGNESIUM LEVEL Stat 09/16/2021 4:16 AM CDT COMPREHENSIVE METABOLIC PANEL Routine 09/16/2021 4:16 AM CDT POC GLUCOSE Routine 09/16/2021 1:54 AM CDT POC GLUCOSE Routine 09/15/2021 8:42 PM CDT POC GLUCOSE Routine 09/15/2021 5:59 PM CDT TRIGLYCERIDE Routine 09/15/2021 2:47 PM CDT Hypertriglyceridem ia POC GLUCOSE Routine 09/15/2021 2:24 PM CDT POC GLUCOSE Routine 09/15/2021 9:10 AM CDT CBC WITH DIFFERENTIAL Routine 09/15/2021 5:09 AM CDT TRIGLYCERIDE Routine 09/15/2021 5:09 AM CDT COMPREHENSIVE METABOLIC PANEL Routine 09/15/2021 5:09 AM CDT POC GLUCOSE Routine 09/15/2021 4:55 AM CDT POC GLUCOSE Routine 09/14/2021 11:36 PM CDT POC GLUCOSE Routine 09/14/2021 9:48 PM CDT POC GLUCOSE Routine 09/14/2021 5:41 PM CDT POC GLUCOSE Routine 09/14/2021 4:33 PM CDT TRIGLYCERIDE Routine 09/14/2021 3:52 PM CDT POC GLUCOSE Routine 09/14/2021 3:29 PM CDT POC GLUCOSE Routine 09/14/2021 2:31 PM CDT CALCIUM IONIZED Routine 09/14/2021 2:30 PM CDT Hypertriglyceridem ia POC GLUCOSE Routine 09/14/2021 1:40 PM CDT 2019 NOVEL CORONAVIRUS (COVID-19) PCR DETECTION Stat 09/14/2021 1:27 PM CDT POC GLUCOSE Routine 09/14/2021 12:46 PM CDT POC GLUCOSE Routine 09/14/2021 11:52 AM CDT PROTIME-INR Routine 09/14/2021 10:34 AM CDT POC GLUCOSE Routine 09/14/2021 10:33 AM CDT POC GLUCOSE Routine 09/14/2021 9:38 AM CDT OT EVAL AND TREAT Routine 09/14/2021 9:1 2 AM CDT PT EVAL AND TREAT Routine 09/14/2021 9:1 2 AM CDT POC GLUCOSE Routine 09/14/2021 8:42 AM CDT CBC WITH DIFFERENTIAL Routine 09/14/2021 4:54 AM CDT TRIGLYCERIDE Routine 09/14/2021 4:54 AM CDT POC GLUCOSE Routine 09/14/2021 3:04 AM CDT POC GLUCOSE Routine 09/14/2021 1:59 AM CDT POC GLUCOSE Routine 09/14/2021 1:01 AM CDT CK Stat 09/14/2021 12:09 AM CDT CALCIUM IONIZED Routine 09/14/2021 12:09 AM CDT ETHANOL LEVEL Stat 09/14/2021 12:09 AM CDT BASIC METABOLIC PANEL Routine 09/14/2021 12:09 AM CDT POC GLUCOSE Routine 09/13/2021 11:53 PM CDT DRUG SCREEN, URINE Stat 09/13/2021 11 :51 PM CDT HCG QUALITATIVE, URINE Stat 11:51 PM CDT OT EVAL AND TREAT Routine 09/13/2021 11: 45 PM CDT PT EVAL AND TREAT Routine 09/13/2021 11: 45 PM CDT POC ELECTROLYTES/BMP Stat 09/13/2021 10:[address] ABDOMEN PELVIS W CONTRAST Stat 09/13/2021 10:43 PM CDT URINALYSIS WITH REFLEX CULTURE Stat 09/13/2021 8:18 PM CDT CBC WITH DIFFERENTIAL Stat 09/13/2021 6:49 PM CDT TRIGLYCERIDE Stat 09/13/2021 6:49 PM CDT LIPASE Stat 09/13/2021 6:49 PM CDT COMPREHENSIVE METABOLIC PANEL Stat 09/13/2021 6:49 PM CDT documented in this encounter Results * (ABNORMAL) POC GLUCOSE (09/20/2021 12:51 PM CDT) GLUCOSE POC 191(H) 74 - 99 mg/dL 09/20/2021 12:51 PM CDT [facility] SPECIMEN SOURCE, GLUCOSE POC Whole Blood 09/20/2021 12:51 PM CDT [facility] Blood, whole 09/20/2021 12:5 1 PM CDT 09/20/2021 12:58 PM CDT Flores Morales MD POINT OF CARE TEST ING [facility]# [id number] [address] [facility] [place] [address] * (ABNORMAL) POC GLUCOSE (09/20/2021 10:09 AM CDT) GLUCOSE POC 183(H) 74 - 99 mg/dL 09/20/2021 10:09 AM CDT [facility] SPECIMEN SOURCE, GLUCOSE POC Whole Blood 09/20/2021 10:09 AM CDT [facility] Blood, whole 09/20/2021 10:0 9 AM CDT 09/20/2021 10:17 AM CDT Flores Morales MD POINT OF CARE TEST ING Performing Organization Address [facility] Co de Phone Number [facility] [employer] [facility]# [id number] [address] [place] [address] * (ABNORMAL) POC GLUCOSE (09/19/2021 8:33 PM CDT) GLUCOSE POC 171(H) 74 - 99 mg/dL 09/19/2021 8:33 PM CDT [facility] LABORATORY SERVICES [facility] SPECIMEN SOURCE, GLUCOSE POC Whole Blood 09/19/2021 8:33 PM CDT [email or web address] COMMENT, GLU POC Notified RN/MD 09/19/2021 8:33 PM CDT [facility] LABORATORY SERVICES [facility] Blood, whole 09/19/2021 8:33 PM CDT 09/19/2021 8:53 PM CDT Flores Morales MD POINT OF CARE TEST ING Performing Organization Address [facility] Co de Phone Number [facility] [employer] [facility]# [id number] [address] [place] [address] * (ABNORMAL) POC GLUCOSE (09/19/2021 6:17 PM CDT) GLUCOSE POC 248(H) 74 - 99 mg/dL 09/19/2021 6:17 PM CDT [facility] LABORATORY SERVICES [facility] SPECIMEN SOURCE, GLUCOSE POC Whole Blood 09/19/2021 6:17 PM CDT [email or web address] COMMENT, GLU POC Notified RN/MD 09/19/2021 6:17 PM CDT [facility] LABORATORY SERVICES [facility] Blood, whole 09/19/2021 6:17 PM CDT 09/19/2021 6:33 PM CDT Flores Morales MD POINT OF CARE TEST ING Performing Organization Address City/[facility]/ZIP Co de Phone Number [facility] [facility] [id number] [address] [place] [address] * (ABNORMAL) POC GLUCOSE (09/19/2021 12:53 PM CDT) GLUCOSE POC 167(H) 74 - 99 mg/dL 09/19/2021 12:53 PM CDT [facility] LABORATORY SERVICES [facility] SPECIMEN SOURCE, GLUCOSE POC Whole Blood 09/19/2021 12:53 PM CDT [facility] LABORATORY SERVICES [facility] COMMENT, GLU POC Notified RN/MD 09/19/2021 12:53 PM CDT [facility] LABORATORY [facility] Blood, whole 09/19/2021 12:5 3 PM CDT 09/19/2021 1:03 PM CDT Flores Morales MD POINT OF CARE TEST ING Performing Organization Address [facility]/ZIP Co de Phone Number [facility] [employer] [facility]# [id number] [address] [place] [address] * (ABNORMAL) POC GLUCOSE (09/19/2021 8:46 AM CDT) GLUCOSE POC 151(H) 74 - 99 mg/dL 09/19/2021 8:46 AM CDT [facility] LABORATORY [facility] SPECIMEN SOURCE, GLUCOSE POC Whole Blood 09/19/2021 8:46 AM CDT [facility] LABORATORY [facility] Blood, whole 09/19/2021 8:46 AM CDT 09/19/2021 9:01 AM CDT Flores Morales MD POINT OF CARE TEST ING Performing Organization Address City/[facility]/ZIP Co de Phone Number [facility] [employer] [facility] [id number] [address] [place] [address] * (ABNORMAL) COMPREHENSIVE METABOLIC PANEL (09/19/2021 4:11 AM CDT) [facility] SODIUM 141 136 - 145 mmol/L 09/19/2021 4:44 AM [facility] [employer] LABORATORY SERVICES - [facility] POTASSIUM 4.0 3.5 - 5.0 mmol/L 09/19/2021 4:44 AM [facility] [employer] SERVICES - [facility] CHLORIDE 102 98 - 107 mmol/L 09/19/2021 4:44 AM [facility] [employer] LABORATORY SERVICES - [facility] CO2 29 22 - 29 mmol/L 09/19/2021 4:44 AM [facility] [employer] [facility] - . [facility] CALCIUM 8.8 8.6 - 10.2 mg/dL 09/19/2021 4:44 AM [facility] [employer] SERVICES - [facility] BUN 6 6 - 20 mg/dL 09/19/2021 4:44 AM [facility] [employer] [facility] - . [facility] CREATININE 0.63 0.51 - 0.95 mg/dL 09/19/2021 4:44 AM [facility] [employer] [facility] - . [facility] GLUCOSE 148(H) 74 - 99 mg/dL 09/19/2021 4:44 AM [facility] [employer] [facility] - . [facility] TOTAL PROTEIN 6.2(L) 6.7 - 8.6 g/dL 09/19/2021 4:44 AM [facility] [employer] [facility] - . [facility] ALBUMIN 4.5 3.5 - 5.2 g/dL 09/19/2021 4:44 AM [facility] [employer] LABORATORY [facility] - . [facility] BILIRUBIN TOTAL 0.2(L) 0.3 - 1.2 mg/dL 09/19/2021 4:44 AM [facility] [employer] LABORATORY SERVICES - . [facility] ALKALINE PHOSPHATASE 45 35 - 104 U/L 09/19/2021 4:44 AM [facility] [employer] [facility] - . [facility] AST 26 <33 U/L 09/19/2021 4:44 AM [facility] [employer] SERVICES - . [facility] ALT 18 <34 U/L 09/19/2021 4:44 AM [facility] [employer] [facility] - . [facility] GFR >60 >=60 mL/min/1.7 3 sq meter 09/19/2021 4:44 AM [facility] [employer] LABORATORY SERVICES - . [facility] Comment:eGFR calculated with 2020 CKD-EPI equation. Vegetarian diet, extremely high or low muscle mass, and may affect results. Cystatin C with Glomerular Filtration Rate is a suitable alternative for these patients. ANION GAP 10 8 - 16 mmol/L 09/19/2021 4:44 AM T [facility] Blood Venipuncture / Unknown 09/19/2021 4:11 AM CDT 09/19/2021 4:[address] [facility] - 09/19/2021 4:44 AM CDT Samples containing indocyanine green cause interferences on Total and/or Direct Bilirubin and must not be measured. Erick Venegas MD CHEMISTRY ORDERABL ES [facility] [employer] [facility]# [id number] [address] [facility] [place] [address] * (ABNORMAL) CBC WITH DIFFERENTIAL (09/19/2021 4:11 AM CDT) Pathologist [facility] WBC 5.2 4.0 - 9.8 K/uL 09/19/2021 4:22 AM [facility] LABORATORY [facility] RBC 3.34(L) 3.90 - 4.90 M/uL 09/19/2021 4:22 AM [facility] HEMOGLOBIN 9.9(L) 11.8 - 14.8 g/dL 09/19/2021 4:22 AM [facility] HEMATOCRIT 31.5(L) 35.5 - 44.0 % 09/19/2021 4:22 AM [facility] [employer] [facility] MCV 94.3 82.0 - 99.0 fL 09/19/2021 4:22 AM T [facility] LABORATORY [facility] MCH 29.6 27.2 - 32.6 pg 09/19/2021 4:22 AM [facility] MCHC 31.4(L) 31.5 - 35.5 g/dL 09/19/2021 4:22 AM [facility] LABORATORY [facility] RDW 15.9(H) 11.5 - 14.5 % 09/19/2021 4:22 AM [employer] LABORATORY SERVICES - [facility] RDW-STDEV 54.3(H) 37.1 - 48.7 fL 09/19/2021 4:22 AM [employer] LABORATORY SERVICES - [facility] PLATELETS 187 140 - 350 K/uL 09/19/2021 4:22 AM [employer] LABORATORY SERVICES - . [facility] MPV 9.6 9.3 - 12.4 fL 09/19/2021 4:22 AM [employer] LABORATORY SERVICES - . [facility] NEUTROPHILS 63 % 09/19/2021 4:22 AM [employer] LABORATORY SERVICES - . [facility] LYMPHOCYTES 29 % 09/19/2021 4:22 AM [employer] LABORATORY SERVICES - [facility] MONOCYTES 6 % 09/19/2021 4:22 AM [employer] LABORATORY SERVICES - [facility] EOSINOPHILS 1 % 09/19/2021 4:22 AM [employer] LABORATORY SERVICES - [facility] BASOPHILS 0 % 09/19/2021 4:22 AM [employer] LABORATORY SERVICES - . [facility] IMMATURE GRANULOCYTES 1 % 09/19/2021 4:22 AM [employer] LABORATORY SERVICES - [facility] Comment:IG (Immature Granulo cyte) count includes Metamyelocytes, Myelocytes, and Promyelocytes NEUTROPHIL ABSOLUTE 3.28 1.90 - 7.00 K/uL 09/19/2021 4:22 AM [employer] LABORATORY SERVICES - [facility] LYMPHOCYTE ABSOLUTE 1.52 0.70 - 4.50 K/uL 09/19/2021 4:22 AM [employer] LABORATORY SERVICES - . [facility] MONOCYTE ABSOLUTE 0.31 0.10 - 1.30 K/uL 09/19/2021 4:22 AM [employer] LABORATORY SERVICES - . [facility] EOSINOPHIL ABSOLUTE 0.06 0.00 - 0.70 K/uL 09/19/2021 4:22 AM [employer] LABORATORY SERVICES - . [facility] BASOPHILS ABSOLUTE 0.02 0.00 - 0.20 K/uL 09/19/2021 4:22 AM [employer] LABORATORY SERVICES - [facility] IMMATURE GRANULOCYTES ABSOLUTE 0.04(H) 0.00 - 0.03 K/uL 09/19/2021 4:22 AM [employer] LABORATORY SERVICES - [facility] Blood Venipuncture / Unknown 09/19/2021 4:11 AM CDT 09/19/2021 4:15 AM CDT Sharri Cruz [employer] HEMATOLOGY ORDERABLE S [facility] LABORATORY [facility] CLIA# [id number] [address] [place] [address] * (ABNORMAL) POC GLUCOSE (09/18/2021 9:56 PM CDT) GLUCOSE POC 170(H) 74 - 99 mg/dL 09/18/2021 9:56 PM CDT [facility] LABORATORY SERVICES [facility] SPECIMEN SOURCE, GLUCOSE POC Whole Blood 09/18/2021 9:56 PM CDT [facility] LABORATORY SERVICES [facility] Blood, whole 09/18/2021 9:56 PM CDT 09/18/2021 10:05 PM CDT Flores Morales MD POINT OF CARE TEST ING Performing Organization Address [facility]/ZIP Co de Phone Number [facility] [employer] [facility] CLNH# [id number] [address] [place] [address] * (ABNORMAL) POC GLUCOSE (09/18/2021 5:55 PM CDT) GLUCOSE POC 144(H) 74 - 99 mg/dL 09/18/2021 5:55 PM CDT [facility] LABORATORY SERVICES [facility] SPECIMEN SOURCE, GLUCOSE POC Whole Blood 09/18/2021 5:55 PM CDT [facility] LABORATORY SERVICES [facility] Blood, whole 09/18/2021 5:55 PM CDT 09/18/2021 6:02 PM CDT Flores Morales MD POINT OF CARE TEST ING [facility] LABORATORY [facility] CLIA# [id number] [address] [place] [address] * (ABNORMAL) POC GLUCOSE (09/18/2021 1:22 PM CDT) GLUCOSE POC 218(H) 74 - 99 mg/dL 09/18/2021 1:22 PM CDT [facility] LABORATORY [facility] SPECIMEN SOURCE, GLUCOSE POC Whole Blood 09/18/2021 1:22 PM CDT [facility] LABORATORY SERVICES [facility] Blood, whole 09/18/2021 1:22 PM CDT 09/18/2021 1:30 PM CDT Flores Morales MD POINT OF CARE TEST ING Performing Organization Address [facility] Co de Phone Number [facility] [employer] [facility] CLIA# [id number] [address] [place] [address] * (ABNORMAL) POC GLUCOSE (09/18/2021 9:42 AM CDT) [facility] GLUCOSE POC 180(H) 74 - 99 mg/dL 09/18/2021 9:42 AM CDT [facility] LABORATORY [facility] - [facility] SPECIMEN SOURCE, GLUCOSE POC Whole Blood 09/18/2021 9:42 AM CDT [facility] LABORATORY [facility] Blood, whole 09/18/2021 9:42 AM CDT 09/18/2021 10:23 AM CDT Flores Morales MD POINT OF CARE TEST ING Performing Organization Address [facility]/ZIP Co de Phone Number [facility] [employer] [facility] CLIA# [id number] [address] [place] [address] * (ABNORMAL) COMPREHENSIVE METABOLIC PANEL (09/18/2021 5:31 AM CDT) Pathologist [facility] SODIUM 141 136 - 145 mmol/L 09/18/2021 6:38 AM CDT [facility] LABORATORY SERVICES [facility] POTASSIUM 3.7 3.5 - 5.0 mmol/L 09/18/2021 6:38 AM [facility] [employer] LABORATORY [facility] - . [facility] CHLORIDE 102 98 - 107 mmol/L 09/18/2021 6:38 AM [facility] [employer] LABORATORY [facility] - . [facility] CO2 29 22 - 29 mmol/L 09/18/2021 6:38 AM [facility] [employer] LABORATORY [facility] - . [facility] CALCIUM 8.9 8.6 - 10.2 mg/dL 09/18/2021 6:38 AM [facility] [employer] LABORATORY [facility] - . [facility] BUN 6 6 - 20 mg/dL 09/18/2021 6:38 AM [facility] [employer] [facility] - . [facility] CREATININE 0.63 0.51 - 0.95 mg/dL 09/18/2021 6:38 AM [facility] [employer] [facility] - [facility] GLUCOSE 221(H) 74 - 99 mg/dL 09/18/2021 6:38 AM [facility] [employer] LABORATORY [facility] - [facility] TOTAL PROTEIN 5.9(L) 6.7 - 8.6 g/dL 09/18/2021 6:38 AM [facility] [employer] [facility] ALBUMIN 4.5 3.5 - 5.2 g/dL 09/18/2021 6:38 AM [facility] [employer] LABORATORY [facility] - . [facility] BILIRUBIN TOTAL 0.2(L) 0.3 - 1.2 mg/dL 09/18/2021 6:38 AM [facility] [employer] LABORATORY [facility] - [facility] ALKALINE PHOSPHATASE 40 35 - 104 U/L 09/18/2021 6:38 AM [facility] [employer] LABORATORY [facility] AST 15 <33 U/L 09/18/2021 6:38 AM [employer] [facility] ALT 10 <34 U/L 09/18/2021 6:38 AM [employer] [facility] GFR >60 >=60 mL/min/1.7 3 sq meter 09/18/2021 6:38 AM [facility] [employer] [facility] Comment:eGFR calculated with 2020 CKD-EPI equation. Vegetarian diet, extremely high or low muscle mass, and may affect results. Cystatin C with Glomerular Filtration Rate is a suitable alternative for these patients. ANION GAP 10 8 - 16 mmol/L 09/18/2021 6:38 AM [facility] Blood Venipuncture / Unknown 09/18/2021 5:31 AM CDT 09/18/2021 5:[address] [facility] - 09/18/2021 6:38 AM CDT Samples containing indocyanine green cause interferences on Total and/or Direct Bilirubin and must not be measured. Erick Venegas MD CHEMISTRY ORDERABL ES [facility] CLIA# [id number] [address] [facility] [place] [address] * (ABNORMAL) CBC WITH DIFFERENTIAL (09/18/2021 5:31 AM CDT) [facility] WBC 5.1 4.0 - 9.8 K/uL 09/18/2021 6:13 AM [facility] RBC 3.29(L) 3.90 - 4.90 M/uL 09/18/2021 6:13 AM [facility] HEMOGLOBIN 9.6(L) 11.8 - 14.8 g/dL 09/18/2021 6:13 AM [facility] HEMATOCRIT 31.5(L) 35.5 - 44.0 % 09/18/2021 6:13 AM [facility] MCV 95.7 82.0 - 99.0 fL 09/18/2021 6:13 AM [facility] MCH 29.2 27.2 - 32.6 pg 09/18/2021 6:13 AM [facility] [employer] [facility] MCHC 30.5(L) 31.5 - 35.5 g/dL 09/18/2021 6:13 AM [facility] RDW 16.0(H) 11.5 - 14.5 % 09/18/2021 6:13 AM [facility] [employer] [facility] RDW-STDEV 57.1(H) 37.1 - 48.7 fL 09/18/2021 6:13 AM CDT [employer] [facility]AT[facility] PLATELETS 187 140 - 350 K/uL 09/18/2021 6:13 AM CDT [employer] [facility] MPV 9.8 9.3 - 12.4 fL 09/18/2021 6:13 AM CDT [employer] [facility] NEUTROPHILS 60 % 09/18/2021 6:13 AM CDT [facility] [facility] LYMPHOCYTES 32 % 09/18/2021 6:13 AM CDT [facility] MONOCYTES 6 % 09/18/2021 6:13 AM CDT [facility] [facility] EOSINOPHILS 1 % 09/18/2021 6:13 AM CDT [facility] [facility] - [facility] BASOPHILS 0 % 09/18/2021 6:13 AM CDT [facility] - [facility] IMMATURE GRANULOCYTES 1 % 09/18/2021 6:13 AM T [facility] Comment:IG (Immature Granulo cyte) count includes Metamyelocytes, Myelocytes, and Promyelocytes NEUTROPHIL ABSOLUTE 3.06 1.90 - 7.00 K/uL 09/18/2021 6:13 AM CDT [employer] [facility] LYMPHOCYTE ABSOLUTE 1.62 0.70 - 4.50 K/uL 09/18/2021 6:13 AM CDT [facility] [facility] MONOCYTE ABSOLUTE 0.28 0.10 - 1.30 K/uL 09/18/2021 6:13 AM T [employer] [facility] - [facility] EOSINOPHIL ABSOLUTE 0.07 0.00 - 0.70 K/uL 09/18/2021 6:13 AM T [employer] [facility] BASOPHILS ABSOLUTE 0.01 0.00 - 0.20 K/uL 09/18/2021 6:13 AM T [employer] [facility] IMMATURE GRANULOCYTES ABSOLUTE 0.03 0.00 - 0.03 K/uL 09/18/2021 6:13 AM T [employer] [facility] Blood Venipuncture / Unknown 09/18/2021 5:31 AM CDT 09/18/2021 5:53 AM CDT Sharri Cruz ENGRAVED ROLLER INSPECTOR HEMATOLOGY ORDERABLE S Performing Organization Address [facility]/ZIP Co de Phone Number [facility] CLIA# [id number] [address] [place] [address] * (ABNORMAL) POC GLUCOSE (09/18/2021 2:08 AM CDT) GLUCOSE POC 217(H) 74 - 99 mg/dL 09/18/2021 2:08 AM CDT [facility] LABORATORY SERVICES [facility] SPECIMEN SOURCE, GLUCOSE POC Whole Blood 09/18/2021 2:08 AM CDT [facility] LABORATORY SERVICES [facility] Blood, whole 09/18/2021 2:08 AM CDT 09/18/2021 2:18 AM CDT Erick Venegas MD POINT OF CARE TEST ING Performing Organization Address [facility]/ZIP Co de Phone Number [facility] CLIA# [id number] [address] [place] [address] * (ABNORMAL) POC GLUCOSE (09/17/2021 10:47 PM CDT) GLUCOSE POC 250(H) 74 - 99 mg/dL 09/17/2021 10:47 PM CDT [facility] LABORATORY [facility] SPECIMEN SOURCE, GLUCOSE POC Whole Blood 09/17/2021 10:47 PM CDT [facility] LABORATORY SERVICES [facility] COMMENT, GLU POC Notified RN/MD 09/17/2021 10:47 PM CDT [facility] LABORATORY SERVICES [facility] Blood, whole 09/17/2021 10:4 7 PM CDT 09/17/2021 11:01 PM CDT Erick Venegas MD POINT OF CARE TEST ING Performing Organization Address [facility]/ZIP Co de Phone Number [facility] LABORATORY [facility] CLIA# [id number] [address] [place] [address] * (ABNORMAL) POC GLUCOSE (09/17/2021 6:33 PM CDT) GLUCOSE POC 208(H) 74 - 99 mg/dL 09/17/2021 6:33 PM CDT [facility] LABORATORY SERVICES - [facility] SPECIMEN SOURCE, GLUCOSE POC Whole Blood 09/17/2021 6:33 PM CDT [facility] LABORATORY SERVICES - [facility] COMMENT, GLU POC Notified RN/ 09/17/2021 6:33 PM CDT [facility] LABORATORY SERVICES [facility] Blood, whole 09/17/2021 6:33 PM CDT 09/17/2021 7:33 PM CDT Erick Venegas MD POINT OF CARE TEST ING Performing Organization Address [facility]/ZIP Co de Phone Number [facility] CLIA# [id number] [address] [place] [address] * (ABNORMAL) POC GLUCOSE (09/17/2021 12:39 PM CDT) GLUCOSE POC 245(H) 74 - 99 mg/dL 09/17/2021 12:39 PM CDT [facility] LABORATORY SERVICES - [facility] SPECIMEN SOURCE, GLUCOSE POC Whole Blood 09/17/2021 12:39 PM CDT [facility] LABORATORY SERVICES [facility] COMMENT, GLU POC Notified RN/ 09/17/2021 12:39 PM CDT [facility] LABORATORY SERVICES [facility] Blood, whole 09/17/2021 12:3 9 PM CDT 09/17/2021 1:34 PM CDT Erick Venegas MD POINT OF CARE TEST ING Performing Organization Address City/[facility]/ZIP Co de Phone Number [facility] CLIA# [id number] [address] [place] [address] * (ABNORMAL) POC GLUCOSE (09/17/2021 9:18 AM CDT) GLUCOSE POC 182(H) 74 - 99 mg/dL 09/17/2021 9:18 AM T [facility]AT[facility] SERVICES - [facility] SPECIMEN SOURCE, GLUCOSE POC Whole Blood 09/17/2021 9:18 AM T [facility] Blood, whole 09/17/2021 9:18 AM CDT 09/17/2021 9:26 AM CDT Erick Venegas MD POINT OF CARE TEST ING [facility] LABORATORY SERVICES - [facility] CLIA# [id number] [address] [place] [place] [address] * (ABNORMAL) COMPREHENSIVE METABOLIC PANEL (09/17/2021 5:20 AM CDT) SODIUM 142 136 - 145 mmol/L 09/17/2021 6:26 AM [facility] [employer] LABORATORY SERVICES - [facility] POTASSIUM 4.0 3.5 - 5.0 mmol/L 09/17/2021 6:26 AM [facility] CHLORIDE 106 98 - 107 mmol/L 09/17/2021 6:26 AM T [facility] CO2 24 22 - 29 mmol/L 09/17/2021 6:26 AM [facility] LABORATORY SERVICES - [facility] CALCIUM 8.7 8.6 - 10.2 mg/dL 09/17/2021 6:26 AM T [facility]AT[facility] - [facility] BUN 5(L) 6 - 20 mg/dL 09/17/2021 6:26 AM T [facility] - [facility] CREATININE 0.56 0.51 - 0.95 mg/dL 09/17/2021 6:26 AM T [facility] - [facility] GLUCOSE 186(H) 74 - 99 mg/dL 09/17/2021 6:26 AM T [facility] SERVICES - . [facility] TOTAL PROTEIN 5.4(L) 6.7 - 8.6 g/dL 09/17/2021 6:26 AM [facility] LABORATORY [facility] - [facility] ALBUMIN 4.4 3.5 - 5.2 g/dL 09/17/2021 6:26 AM T [facility] BILIRUBIN TOTAL 0.3 0.3 - 1.2 mg/dL 09/17/2021 6:26 AM [facility] ALKALINE PHOSPHATASE 31(L) 35 - 104 U/L 09/17/2021 6:26 AM [facility] AST 10 <33 U/L 09/17/2021 6:26 AM [facility] ALT 7 <34 U/L 09/17/2021 6:26 AM [facility] GFR >60 >=60 mL/min/1.7 3 sq meter 09/17/2021 6:26 AM [facility] Comment:eGFR calculated with 2020 CKD-EPI equation. Vegetarian diet, extremely high or low muscle mass, and may affect results. Cystatin C with Glomerular Filtration Rate is a suitable alternative for these patients. ANION GAP 12 8 - 16 mmol/L 09/17/2021 6:26 AM [facility] Blood Venipuncture / Unknown 09/17/2021 5:20 AM CDT 09/17/2021 5:[address] [facility] - 09/17/2021 6:26 AM CDT Samples containing indocyanine green cause interferences on Total and/or Direct Bilirubin and must not be measured. Erick Venegas MD CHEMISTRY ORDERABL ES [facility]# [id number] [facility] [place] [address] * (ABNORMAL) TRIGLYCERIDE (09/17/2021 5:20 AM CDT) TRIGLYCERIDE 336(H) <150 mg/dL 09/17/2021 6:26 AM T [facility] Blood Venipuncture / Unknown 09/17/2021 5:20 AM CDT 09/17/2021 5:41 AM CDT Narrative [facility] - [facility] - 09/17/2021 6:26 AM CDT TRIGLYCERIDES ? mg/dL Normal ?< 150 Borderline High ?150 - 199 High ? 200 - 499 Very High ? >= 500 Based on AHA/NCEP Guidelines. Anahi Bass DO CHEMISTRY ORDERABLES [facility] LABORATORY SERVICES - [facility] CLIA# [id number] [facility] [place] [address] * (ABNORMAL) CBC WITH DIFFERENTIAL (09/17/2021 5:20 AM CDT) WBC 4.2 4.0 - 9.8 K/uL 09/17/2021 6:06 AM CDT [facility] - [facility] RBC 3.28(L) 3.90 - 4.90 M/uL 09/17/2021 6:06 AM CDT [facility] - [facility] HEMOGLOBIN 9.9(L) 11.8 - 14.8 g/dL 09/17/2021 6:06 AM CDT [facility] - [facility] HEMATOCRIT 31.3(L) 35.5 - 44.0 % 09/17/2021 6:06 AM CDT [facility] - [facility] MCV 95.4 82.0 - 99.0 fL 09/17/2021 6:06 AM CDT [facility] - [facility] MCH 30.2 27.2 - 32.6 pg 09/17/2021 6:06 AM CDT [facility] - [facility] MCHC 31.6 31.5 - 35.5 g/dL 09/17/2021 6:06 AM CDT [facility] - [facility] RDW 16.4(H) 11.5 - 14.5 % 09/17/2021 6:06 AM CDT [facility] - [facility] RDW-STDEV 57.9(H) 37.1 - 48.7 fL 09/17/2021 6:06 AM [facility] - [facility] PLATELETS 180 140 - 350 K/uL 09/17/2021 6:06 AM [facility] - [facility] MPV 9.7 9.3 - 12.4 fL 09/17/2021 6:06 AM [facility] - [facility] NEUTROPHILS 58 % 09/17/2021 6:06 AM [facility] - [facility] LYMPHOCYTES 34 % 09/17/2021 6:06 AM [facility] MONOCYTES 6 % 09/17/2021 6:06 AM [facility] EOSINOPHILS 1 % 09/17/2021 6:06 AM [facility] BASOPHILS 1 % 09/17/2021 6:06 AM [facility] IMMATURE GRANULOCYTES 1 % 09/17/2021 6:06 AM [facility] Comment:IG (Immature Granulo cyte) count includes Metamyelocytes, Myelocytes, and Promyelocytes NEUTROPHIL ABSOLUTE 2.44 1.90 - 7.00 K/uL 09/17/2021 6:06 AM [facility] LYMPHOCYTE ABSOLUTE 1.41 0.70 - 4.50 K/uL 09/17/2021 6:06 AM [facility] MONOCYTE ABSOLUTE 0.24 0.10 - 1.30 K/uL 09/17/2021 6:06 AM [facility] EOSINOPHIL ABSOLUTE 0.05 0.00 - 0.70 K/uL 09/17/2021 6:06 AM [facility] BASOPHILS ABSOLUTE 0.02 0.00 - 0.20 K/uL 09/17/2021 6:06 AM [employer] [facility] IMMATURE GRANULOCYTES ABSOLUTE 0.04(H) 0.00 - 0.03 K/uL 09/17/2021 6:06 AM [facility] [facility] Blood Venipuncture / Unknown 09/17/2021 5:20 AM CDT 09/17/2021 5:41 AM CDT Sharri Cruz ENGRAVED ROLLER INSPECTOR HEMATOLOGY ORDERABLE S [facility]# [id number] [address] [place] [address] * (ABNORMAL) POC GLUCOSE (09/17/2021 2:14 AM CDT) GLUCOSE POC 171(H) 74 - 99 mg/dL 09/17/2021 2:14 AM CDT [facility] SPECIMEN SOURCE, GLUCOSE POC Whole Blood 09/17/2021 2:14 AM CDT [facility] Blood, whole 09/17/2021 2:14 AM CDT 09/17/2021 2:29 AM CDT Erick Venegas MD POINT OF CARE TEST ING Performing Organization Address [facility]/ZIP Co de Phone Number [facility]# [id number] [address] [place] [address] * (ABNORMAL) POC GLUCOSE (09/16/2021 8:34 PM CDT) GLUCOSE POC 248(H) 74 - 99 mg/dL 09/16/2021 8:34 PM CDT [facility] SPECIMEN SOURCE, GLUCOSE POC Whole Blood 09/16/2021 8:34 PM CDT [facility] Blood, whole 09/16/2021 8:34 PM CDT 09/16/2021 8:47 PM CDT Erick Venegas MD POINT OF CARE TEST ING [facility] CLIA# [id number] [address] [place] [address] * (ABNORMAL) POC GLUCOSE (09/16/2021 7:06 PM CDT) GLUCOSE POC 233(H) 74 - 99 mg/dL 09/16/2021 7:06 PM CDT [facility] SERVICES - [facility] SPECIMEN SOURCE, GLUCOSE POC Whole Blood 09/16/2021 7:06 PM CDT [facility] SERVICES - [facility] Blood, whole 09/16/2021 7:06 PM CDT 09/16/2021 7:16 PM CDT Erick Venegas MD POINT OF CARE TEST ING Performing Organization Address [facility] Co de Phone Number [facility] CLIA# [id number] [address] [address] * (ABNORMAL) POC GLUCOSE (09/16/2021 2:20 PM CDT) Pathologist [facility] GLUCOSE POC 164(H) 74 - 99 mg/dL 09/16/2021 2:20 PM CDT [facility] SERVICES - [facility] SPECIMEN SOURCE, GLUCOSE POC Whole Blood 09/16/2021 2:20 PM CDT [facility] SERVICES - [facility] COMMENT, GLU POC Notified RN/MD 09/16/2021 2:20 PM CDT [email or web address] - [facility] Blood, whole 09/16/2021 2:20 PM CDT 09/16/2021 2:27 PM CDT Erick Venegas MD POINT OF CARE TEST ING Performing Organization Address [facility] Co de Phone Number [facility] CLIA# [id number] [address] [place] [address] * TYPE AND SCREEN (09/16/2021 11:26 AM CDT) Pathologist [facility] ABO GROUP B 09/16/2021 12:18 PM CDT [facility] SERVICES -- [facility] RH (D) TYPE Positive 09/16/2021 12:18 PM CDT [email or web address] -- [facility] ANTIBODY SCREEN Negative 09/16/2021 12:18 PM CDT [email or web address] -- [facility] Blood Venipuncture / Unknown 09/16/2021 11:26 AM CDT 09/16/2021 11:30 AM CDT Phoenix Riddle MD BLOOD BANK ORDERABL ES Performing Organization Address [facility]/ZIP Co de Phone Number [facility] -- [facility]# [id number] [address] [place] [address] * PREPARE FRESH FROZEN PLASMA (09/16/2021 10:33 AM CDT) COMPONENT TYPE [id number] [facility] COMPONENT IDENTIFICATION [id number] [facility] UN[facility] ABO B [facility] -- [facility] UNIT RH NEG [facility] COMPONENT STATUS Transf[facility] COMPONENT EXPIRATION DATE/TIME [facility] COMPONENT CODING SYSTEM 1700 [facility] -- [facility] 09/16/2021 10:3 3 AM CDT Phoenix Riddle MD LAB TRANSFUSION ORD ERABLES Performing Organization Address [facility] Co de Phone Number [email or web address] -- [facility]# [id number] [address] [place] [address] * PREPARE FRESH FROZEN PLASMA (09/16/2021 10:33 AM CDT) COMPONENT TYPE [id number] [facility] COMPONENT IDENTIFICATION [id number] [facility] UN[facility] ABO B [facility] RH POS [facility] COMPONENT STATUS Trans[facility]used [facility] COMPONENT EXPIRATION DATE/TIME [facility] COMPONENT CODING SYSTEM 7300 [facility] Other, specify 09/16/2021 10 :33 AM CDT Phoenix Riddle MD LAB TRANSFUSION ORD ERABLES Performing Organization Address [facility]/State/ZIP Co de Phone Number [facility] -- [facility] CLIA# [id number] [address] [place] [address] * (ABNORMAL) POC GLUCOSE (09/16/2021 9:11 AM CDT) GLUCOSE POC 188(H) 74 - 99 mg/dL 09/16/2021 9:11 AM CDT [email or web address] - [facility] SPECIMEN SOURCE, GLUCOSE POC Whole Blood 09/16/2021 9:11 AM CDT [facility] - [facility] Blood, whole 09/16/2021 9:11 AM CDT 09/16/2021 9:20 AM CDT Erick Venegas MD POINT OF CARE TEST ING Performing Organization Address [facility]/ZIP Co de Phone Number [facility]# [id number] [address] [place] [address] * (ABNORMAL) COMPREHENSIVE METABOLIC PANEL (09/16/2021 4:16 AM CDT) SODIUM 138 136 - 145 mmol/L 09/16/2021 5:17 AM CDT [facility] POTASSIUM 4.7 3.5 - 5.0 mmol/L 09/16/2021 5:17 AM CDT [facility] - [facility] Comment:Moderate hemolysis p resent. Can cause significant falsely elevated result. Redraw if indicated. CHLORIDE 106 98 - 107 mmol/L 09/16/2021 5:17 AM CDT [facility] CO2 22 22 - 29 mmol/L 09/16/2021 5:17 AM CDT [email or web address] - [facility] CALCIUM 8.5(L) 8.6 - 10.2 mg/dL 09/16/2021 5:17 AM [facility] [employer] [facility] BUN 7 6 - 20 mg/dL 09/16/2021 5:17 AM [facility] CREATININE 0.54 0.51 - 0.95 mg/dL 09/16/2021 5:17 AM [facility] GLUCOSE 200(H) 74 - 99 mg/dL 09/16/2021 5:17 AM [facility] TOTAL PROTEIN 5.3(L) 6.7 - 8.6 g/dL 09/16/2021 5:17 AM [facility] ALBUMIN 4.3 3.5 - 5.2 g/dL 09/16/2021 5:17 AM [facility] BILIRUBIN TOTAL 0.2(L) 0.3 - 1.2 mg/dL 09/16/2021 5:17 AM [facility] ALKALINE PHOSPHATASE 27(L) 35 - 104 U/L 09/16/2021 5:17 AM [facility] AST 19 <33 U/L 09/16/2021 5:17 AM [facility] [employer] [facility] Comment:Hemolysis present. R esult may be falsely elevated. ALT 9 <34 U/L 09/16/2021 5:17 AM [facility] [employer] [facility] Comment:Hemolysis present. R esult may be falsely elevated. GFR >60 >=60 mL/min/1.7 3 sq meter 09/16/2021 5:17 AM [facility] [employer] [facility] Comment:eGFR calculated with 2020 CKD-EPI equation. Vegetarian diet, extremely high or low muscle mass, and may affect results. Cystatin C with Glomerular Filtration Rate is a suitable alternative for these patients. ANION GAP 10 8 - 16 mmol/L 09/16/2021 5:17 AM [facility] [employer] [facility] Blood Venipuncture / Unknown 09/16/2021 4:16 AM T 09/16/2021 4:19 AM [facility] [employer] [facility] - 09/16/2021 5:17 AM CDT Samples containing indocyanine green cause interferences on Total and/or Direct Bilirubin and must not be measured. Erick Venegas MD CHEMISTRY ORDERABL ES Performing Organization Address [facility] Co de Phone Number [facility] [employer] [facility]# [id number] [address] [place] [address] * (ABNORMAL) TRIGLYCERIDE (09/16/2021 4:16 AM CDT) Pathologist [facility] TRIGLYCERIDE 595(H) <150 mg/dL 09/16/2021 5:14 AM CDT [facility] [employer] [facility] Blood Venipuncture / Unknown 09/16/2021 4:16 AM CDT 09/16/2021 4:19 AM CDT [facility] [employer] [facility] - 09/16/2021 5:14 AM CDT TRIGLYCERIDES ? mg/dL Normal ?< 150 Borderline High ?150 - 199 High ? 200 - 499 Very High ? >= 500 Based on AHA/NCEP Guidelines. Anahi Bass DO CHEMISTRY ORDERABLES Performing Organization Address [facility] Co de Phone Number [facility] [employer] [facility]# [id number] [address] [place] [address] * (ABNORMAL) CBC WITH DIFFERENTIAL (09/16/2021 4:16 AM CDT) Pathologist [facility] WBC 4.0 4.0 - 9.8 K/uL 09/16/2021 4:46 AM CDT [facility] [employer] [facility] RBC 3.17(L) 3.90 - 4.90 M/uL 09/16/2021 4:46 AM CDT [facility] [employer] [facility] HEMOGLOBIN 9.5(L) 11.8 - 14.8 g/dL 09/16/2021 4:46 AM CDT [facility] HEMATOCRIT 30.6(L) 35.5 - 44.0 % 09/16/2021 4:46 AM CDT [facility] MCV 96.5 82.0 - 99.0 fL 09/16/2021 4:46 AM CDT [facility] MCH 30.0 27.2 - 32.6 pg 09/16/2021 4:46 AM CDT [facility] MCHC 31.0(L) 31.5 - 35.5 g/dL 09/16/2021 4:46 AM CDT [facility] RDW 16.5(H) 11.5 - 14.5 % 09/16/2021 4:46 AM CDT [facility] - . [facility] RDW-STDEV 58.4(H) 37.1 - 48.7 fL 09/16/2021 4:46 AM CDT [facility] [place] PLATELETS 167 140 - 350 K/uL 09/16/2021 4:46 AM CDT [facility] MPV 9.9 9.3 - 12.4 fL 09/16/2021 4:46 AM CDT [facility] NEUTROPHILS 54 % 09/16/2021 4:46 AM CDT [facility] LYMPHOCYTES 38 % 09/16/2021 4:46 AM CDT [facility] MONOCYTES 6 % 09/16/2021 4:46 AM CDT [facility] EOSINOPHILS 2 % 09/16/2021 4:46 AM CDT [facility] BASOPHILS 0 % 09/16/2021 4:46 AM CDT [facility] IMMATURE GRANULOCYTES 0 % 09/16/2021 4:46 AM CDT [facility] NEUTROPHIL ABSOLUTE 2.17 1.90 - 7.00 K/uL 09/16/2021 4:46 AM CDT [facility] LYMPHOCYTE ABSOLUTE 1.52 0.70 - 4.50 K/uL 09/16/2021 4:46 AM CDT [facility] MONOCYTE ABSOLUTE 0.26 0.10 - 1.30 K/uL 09/16/2021 4:46 AM CDT [facility] - [facility] [place] EOSINOPHIL ABSOLUTE 0.07 0.00 - 0.70 K/uL 09/16/2021 4:46 AM CDT [facility] BASOPHILS ABSOLUTE 0.01 0.00 - 0.20 K/uL 09/16/2021 4:46 AM CDT [facility] - [facility] IMMATURE GRANULOCYTES ABSOLUTE 0.01 0.00 - 0.03 K/uL 09/16/2021 4:46 AM CDT [facility] SERVICES - [facility] Blood Venipuncture / Unknown 09/16/2021 4:16 AM CDT 09/16/2021 4:19 AM CDT Sharri Cruz NP HEMATOLOGY ORDERABLE S [facility] CLNH# [id number] [address] [place] [address] * MAGNESIUM LEVEL (09/16/2021 4:16 AM CDT) Pathologist [facility] MAGNESIUM 1.7 1.6 - 2.6 mg/dL 09/16/2021 12:45 PM CDT [facility] Blood Venipuncture / Unknown 09/16/2021 4:16 AM CDT 09/16/2021 4:19 AM CDT Antwon Coyle MD CHEMISTRY ORD ERABLES [facility] [employer] [facility]# [id number] [address] [place] [address] * (ABNORMAL) POC GLUCOSE (09/16/2021 1:54 AM CDT) GLUCOSE POC 213(H) 74 - 99 mg/dL 09/16/2021 1:54 AM CDT [facility] SPECIMEN SOURCE, GLUCOSE POC Whole Blood 09/16/2021 1:54 AM CDT [facility] LABORATORY SERVICES [facility] COMMENT, GLU POC Notified RN/ 09/16/2021 1:54 AM CDT [facility]OR[facility]ORY SERVICES [facility] Blood, whole 09/16/2021 1:54 AM CDT 09/16/2021 2:01 AM CDT Erick Venegas MD POINT OF CARE TEST ING Performing Organization Address [facility] Co de Phone Number [facility] [id number] [address] [place] [address] * (ABNORMAL) POC GLUCOSE (09/15/2021 8:42 PM CDT) GLUCOSE POC 253(H) 74 - 99 mg/dL 09/15/2021 8:42 PM CDT [facility] LABORATORY SERVICES [facility] SPECIMEN SOURCE, GLUCOSE POC Whole Blood 09/15/2021 8:42 PM CDT [email or web address] SERVICES [facility] COMMENT, GLU POC Notified RN/ 09/15/2021 8:42 PM CDT [email or web address] SERVICES [facility] Blood, whole 09/15/2021 8:42 PM CDT 09/15/2021 9:02 PM CDT Erick Venegas MD POINT OF CARE TEST ING Performing Organization Address [facility] Co de Phone Number [facility]# [id number] [address] [place] [address] * (ABNORMAL) POC GLUCOSE (09/15/2021 5:59 PM CDT) GLUCOSE POC 247(H) 74 - 99 mg/dL 09/15/2021 5:59 PM CDT [facility]ORATORY SERVICES [facility] SPECIMEN SOURCE, GLUCOSE POC Whole Blood 09/15/2021 5:59 PM CDT [facility]OR[facility]ORY SERVICES [facility] Blood, whole 09/15/2021 5:59 PM CDT 09/15/2021 6:13 PM CDT Erick Venegas MD POINT OF CARE TEST ING Performing Organization Address [facility]/ZIP Co de Phone Number [facility]# [id number] [address] [place] [address] * (ABNORMAL) TRIGLYCERIDE (09/15/2021 2:47 PM CDT) TRIGLYCERIDE 519(H) <150 mg/dL 09/15/2021 3:47 PM CDT [facility] Blood Collection / Unknown 09/15/2021 2:47 PM CDT 09/15/2021 3:02 PM CDT Narrative [facility] - 09/15/2021 3:47 PM CDT TRIGLYCERIDES ? mg/dL Normal ?< 150 Borderline High ?150 - 199 High ? 200 - 499 Very High ? >= 500 Based on AHA/NCEP Guidelines. Phoenix Riddle MD CHEMISTRY ORDERABLE S Performing Organization Address [facility] Co de Phone Number [facility] [employer] [facility]# [id number] [address] [place] [address] * (ABNORMAL) POC GLUCOSE (09/15/2021 2:24 PM CDT) GLUCOSE POC 197(H) 74 - 99 mg/dL 09/15/2021 2:24 PM CDT [facility] SPECIMEN SOURCE, GLUCOSE POC Whole Blood 09/15/2021 2:24 PM CDT [facility] Blood, whole 09/15/2021 2:24 PM CDT 09/15/2021 2:32 PM CDT Erick Venegas MD POINT OF CARE TEST ING Performing Organization Address [facility]/ZIP Co de Phone Number [facility] [employer] [facility] CLIA# [id number] [address] [place] [address] * (ABNORMAL) POC GLUCOSE (09/15/2021 9:10 AM CDT) GLUCOSE POC 193(H) 74 - 99 mg/dL 09/15/2021 9:10 AM CDT [facility] - [facility] SPECIMEN SOURCE, GLUCOSE POC Whole Blood 09/15/2021 9:10 AM CDT [facility] Blood, whole 09/15/2021 9:10 AM CDT 09/15/2021 9:17 AM CDT Erick Venegas MD POINT OF CARE TEST ING Performing Organization Address [facility] Co de Phone Number [facility] [employer] [facility] CLIA# [id number] [address] [place] [address] * (ABNORMAL) COMPREHENSIVE METABOLIC PANEL (09/15/2021 5:09 AM CDT) Pathologist [facility] SODIUM 136 136 - 145 mmol/L 09/15/2021 6:18 AM CDT [facility] POTASSIUM 4.2 3.5 - 5.0 mmol/L 09/15/2021 6:18 AM CDT [facility] CHLORIDE 103 98 - 107 mmol/L 09/15/2021 6:18 AM CDT [facility] - [facility] Comment:Significant change f rom prior result, correlate clinically and redraw if necessary. CO2 19(L) 22 - 29 mmol/L 09/15/2021 6:18 AM CDT [facility] CALCIUM 8.7 8.6 - 10.2 mg/dL 09/15/2021 6:18 AM CDT [facility] - [facility] BUN 6 6 - 20 mg/dL 09/15/2021 6:18 AM CDT [facility] CREATININE 0.65 0.51 - 0.95 mg/dL 09/15/2021 6:18 AM [facility] LABORATORY [facility] GLUCOSE 181(H) 74 - 99 mg/dL 09/15/2021 6:18 AM [facility] TOTAL PROTEIN 5.6(L) 6.7 - 8.6 g/dL 09/15/2021 6:18 AM [facility] ALBUMIN 4.4 3.5 - 5.2 g/dL 09/15/2021 6:18 AM [facility] BILIRUBIN TOTAL 0.3 0.3 - 1.2 mg/dL 09/15/2021 6:18 AM [facility] ALKALINE PHOSPHATASE 45 35 - 104 U/L 09/15/2021 6:18 AM [facility] AST 14 <33 U/L 09/15/2021 6:18 AM [facility] ALT 10 <34 U/L 09/15/2021 6:18 AM [facility] GFR >60 >=60 mL/min/1.7 3 sq meter 09/15/2021 6:18 AM [facility] Comment:eGFR calculated with 2020 CKD-EPI equation. Vegetarian diet, extremely high or low muscle mass, and may affect results. Cystatin C with Glomerular Filtration Rate is a suitable alternative for these patients. ANION GAP 14 8 - 16 mmol/L 09/15/2021 6:18 AM [facility] Blood Venipuncture / Unknown 09/15/2021 5:09 AM CDT 09/15/2021 5:15 AM [facility] - 09/15/2021 6:18 AM [facility] Samples containing indocyanine green cause interferences on Total and/or Direct Bilirubin and must not be measured. Anahi Bass DO CHEMISTRY ORDERABLES [facility] CLIA# [id number] [address] [place] [address] * (ABNORMAL) TRIGLYCERIDE (09/15/2021 5:09 AM CDT) Pathologist [facility] TRIGLYCERIDE 1,254(H) <150 mg/dL 09/15/2021 6:23 AM CDT [facility] [employer] SERVICES [facility] Blood Venipuncture / Unknown 09/15/2021 5:09 AM CDT 09/15/2021 5:15 AM CDT [facility] [employer] [facility] - 09/15/2021 6:23 AM CDT TRIGLYCERIDES ? mg/dL Normal ?< 150 Borderline High ?150 - 199 High ? 200 - 499 Very High ? >= 500 Based on AHA/NCEP Guidelines. Anahi Bass DO CHEMISTRY ORDERABLES [facility] [employer] [facility] CLIA# [id number] [address] [place] [address] * (ABNORMAL) CBC WITH DIFFERENTIAL (09/15/2021 5:09 AM CDT) [facility] WBC 5.4 4.0 - 9.8 K/uL 09/15/2021 5:39 AM CDT [facility] RBC 3.37(L) 3.90 - 4.90 M/uL 09/15/2021 5:39 AM CDT [facility] [employer] [facility] HEMOGLOBIN 10.3(L) 11.8 - 14.8 g/dL 09/15/2021 5:39 AM [facility] [employer] [facility] HEMATOCRIT 31.8(L) 35.5 - 44.0 % 09/15/2021 5:39 AM CDT [facility] [employer] [facility] MCV 94.4 82.0 - 99.0 fL 09/15/2021 5:39 AM CDT [facility] [employer] [facility] MCH 30.6 27.2 - 32.6 pg 09/15/2021 5:39 AM CDT [facility] MCHC 32.4 31.5 - 35.5 g/dL 09/15/2021 5:39 AM CDT [employer] [facility] RDW 16.2(H) 11.5 - 14.5 % 09/15/2021 5:39 AM CDT [facility] [facility] - [facility] RDW-STDEV 55.9(H) 37.1 - 48.7 fL 09/15/2021 5:39 AM CDT [employer] [facility] - [facility] PLATELETS 188 140 - 350 K/uL 09/15/2021 5:39 AM CDT [facility] - [facility] MPV 9.6 9.3 - 12.4 fL 09/15/2021 5:39 AM CDT [facility] NEUTROPHILS 66 % 09/15/2021 5:39 AM CDT [facility] LYMPHOCYTES 27 % 09/15/2021 5:39 AM CDT [facility] MONOCYTES 6 % 09/15/2021 5:39 AM CDT [facility] EOSINOPHILS 1 % 09/15/2021 5:39 AM CDT [facility] - [facility] BASOPHILS 0 % 09/15/2021 5:39 AM CDT [facility] IMMATURE GRANULOCYTES 1 % 09/15/2021 5:39 AM CDT [facility] - . [facility] Comment:IG (Immature Granulo cyte) count includes Metamyelocytes, Myelocytes, and Promyelocytes NEUTROPHIL ABSOLUTE 3.56 1.90 - 7.00 K/uL 09/15/2021 5:39 AM CDT [facility] - [facility] LYMPHOCYTE ABSOLUTE 1.44 0.70 - 4.50 K/uL 09/15/2021 5:39 AM CDT [facility] MONOCYTE ABSOLUTE 0.32 0.10 - 1.30 K/uL 09/15/2021 5:39 AM CDT [facility] - [facility] EOSINOPHIL ABSOLUTE 0.06 0.00 - 0.70 K/uL 09/15/2021 5:39 AM CDT [facility] BASOPHILS ABSOLUTE 0.02 0.00 - 0.20 K/uL 09/15/2021 5:39 AM CDT [facility] - [facility] IMMATURE GRANULOCYTES ABSOLUTE 0.03 0.00 - 0.03 K/uL 09/15/2021 5:39 AM CDT [facility] - [facility] Blood Venipuncture / Unknown 09/15/2021 5:09 AM CDT 09/15/2021 5:15 AM CDT Sharri Cruz NP HEMATOLOGY ORDERABLE S [facility] CLIA# [id number] [address] [place] [address] * (ABNORMAL) POC GLUCOSE (09/15/2021 4:55 AM CDT) GLUCOSE POC 183(H) 74 - 99 mg/dL 09/15/2021 4:55 AM CDT [facility] SPECIMEN SOURCE, GLUCOSE POC Whole Blood 09/15/2021 4:55 AM CDT [facility] Blood, whole 09/15/2021 4:55 AM CDT 09/15/2021 5:17 AM CDT Trey Solorzano MD POINT OF CARE TESTIN G [facility] CLIA# [id number] [address] [place] [address] * (ABNORMAL) POC GLUCOSE (09/14/2021 11:36 PM CDT) GLUCOSE POC 193(H) 74 - 99 mg/dL 09/14/2021 11:36 PM CDT [facility] SPECIMEN SOURCE, GLUCOSE POC Whole Blood 09/14/2021 11:36 PM CDT [facility] Blood, whole 09/14/2021 11:3 6 PM CDT 09/14/2021 11:54 PM CDT Trey Solorzano MD POINT OF CARE TESTJERONIMO Maggie [facility] [employer] [facility] CLIA# [id number] [address] [place] [address] * (ABNORMAL) POC GLUCOSE (09/14/2021 9:48 PM CDT) GLUCOSE POC 178(H) 74 - 99 mg/dL 09/14/2021 9:48 PM CDT [facility] SERVICES [facility] SPECIMEN SOURCE, GLUCOSE POC Whole Blood 09/14/2021 9:48 PM CDT [facility] SERVICES [facility] Blood, whole 09/14/2021 9:48 PM CDT 09/14/2021 10:22 PM CDT Trey Solorzano MD POINT OF CARE FLY Maggie Performing Organization Address [facility]/ZIP Co de Phone Number [facility] CLNH# [id number] [address] [place] [address] * (ABNORMAL) POC GLUCOSE (09/14/2021 5:41 PM CDT) GLUCOSE POC 155(H) 74 - 99 mg/dL 09/14/2021 5:41 PM CDT [facility] SERVICES [facility] SPECIMEN SOURCE, GLUCOSE POC Whole Blood 09/14/2021 5:41 PM CDT [facility] Blood, whole 09/14/2021 5:41 PM CDT 09/14/2021 5:51 PM CDT Trey Solorzano MD POINT OF CARE TESTJERONIMO Maggie [facility] CLIA# [id number] [address] [place] [address] * (ABNORMAL) POC GLUCOSE (09/14/2021 4:33 PM CDT) GLUCOSE POC 191(H) 74 - 99 mg/dL 09/14/2021 4:33 PM CDT [facility] SPECIMEN SOURCE, GLUCOSE POC Whole Blood 09/14/2021 4:33 PM CDT [facility] Blood, whole 09/14/2021 4:33 PM CDT 09/14/2021 4:42 PM CDT Trey Solorzano MD POINT OF CARE TESTIN G Performing Organization Address [facility]/ZIP Co de Phone Number [facility] CLIA# [id number] [address] [place] [address] * (ABNORMAL) TRIGLYCERIDE (09/14/2021 3:52 PM CDT) Pathologist [facility] TRIGLYCERIDE 1,827(H) <150 mg/dL 09/14/2021 4:50 PM CDT [facility] Blood Venipuncture / Unknown 09/14/2021 3:52 PM CDT 09/14/2021 4:04 PM CDT Narrative [facility] - 09/14/2021 4:50 PM CDT TRIGLYCERIDES ? mg/dL Normal ?< 150 Borderline High ?150 - 199 High ? 200 - 499 Very High ? >= 500 Based on AHA/NCEP Guidelines. Anahi Bass DO CHEMISTRY ORDERABLES Performing Organization Address [facility]/ZIP Co de Phone Number [facility]# [id number] [address] [place] [address] * (ABNORMAL) POC GLUCOSE (09/14/2021 3:29 PM CDT) GLUCOSE POC 130(H) 74 - 99 mg/dL 09/14/2021 3:29 PM CDT [facility] SPECIMEN SOURCE, GLUCOSE POC Whole Blood 09/14/2021 3:29 PM CDT [facility] Blood, whole 09/14/2021 3:29 PM CDT 09/14/2021 4:46 PM CDT Trey Solorzano MD POINT OF CARE TESTJERONIMO G Performing Organization Address [facility] Co de Phone Number [facility]# [id number] [address] [place] [address] * POC GLUCOSE (09/14/2021 2:31 PM CDT) GLUCOSE POC 94 74 - 99 mg/dL 09/14/2021 2:31 PM CDT [facility] SPECIMEN SOURCE, GLUCOSE POC Whole Blood 09/14/2021 2:31 PM CDT [facility] Blood, whole 09/14/2021 2:31 PM CDT 09/14/2021 4:46 PM CDT Trey Solorzano MD POINT OF CARE TESTJERONIMO Maggie Performing Organization Address [facility] de Phone Number [facility]# [id number] [address] [place] [address] * (ABNORMAL) CALCIUM IONIZED (09/14/2021 2:30 PM CDT) PH, VENOUS 7.21(L) 7.32 - 7.43 09/14/2021 2:52 PM CDT [facility] CALCIUM IONIZED 4.5(L) 4.8 - 5.2 mg/dL 09/14/2021 2:52 PM CDT [facility] Comment:Not received on ice. Results may be falsely elevated. Blood Venipuncture / Unknown 09/14/2021 2:30 PM CDT 09/14/2021 2:43 PM CDT Phoenix Riddle MD CHEMISTRY ORDERABLE S Performing Organization Address [facility]/ZIP Co de Phone Number [facility]# [id number] [address] [place] [address] * POC GLUCOSE (09/14/2021 1:40 PM CDT) [facility] GLUCOSE POC 74 74 - 99 mg/dL 09/14/2021 1:40 PM CDT [facility] SPECIMEN SOURCE, GLUCOSE POC Whole Blood 09/14/2021 1:40 PM CDT [facility] [employer] [facility] Blood, whole 09/14/2021 1:40 PM CDT 09/14/2021 4:46 PM CDT Trey Solorzano MD POINT OF CARE TESTIN G Performing Organization Address [facility] Co de Phone Number [facility] [employer] [facility]# [id number] [address] [place] [address] * 2019 NOVEL CORONAVIRUS (COVID-19) PCR DETECTION (09/14/2021 1:27 PM CDT) [facility] COVID-19 PCR NOT DETECTED Not Detected 09/15/19 2:53 PM CDT [facility] [employer] [facility]FORM[facility] 09/14/2021 2:53 PM CDT [facility] [employer] [facility] Upper Respiratory ENTIRE NASOPHARYNX / Unknown Collection / Unknown 09/14/2021 1:27 PM CDT 09/14/2021 1:33 PM CDT Narrative [facility] - 09/14/2021 2:53 PM CDT This test has been authorized by the FDA under an Emergency Use Authorization for use by authorized laboratories.?? This test has been validated in accordance with the FDA's guidance regarding Coronavirus Disease-2019 testing.?? Optimum specimen types and timing for peak viral levels during infection have not been determined.?? A negative RT-PCR result does not rule out infection with the 2019-Novel Coronavirus. Anahi Bass DO MICROBIOLOGY - GENER AL ORDERABLES [facility]# [id number] [address] [place] [address] * POC GLUCOSE (09/14/2021 12:46 PM CDT) GLUCOSE POC 80 74 - 99 mg/dL 09/14/2021 12:46 PM CDT [facility] SERVICES - [facility] SPECIMEN SOURCE, GLUCOSE POC Whole Blood 09/14/2021 12:46 PM CDT [facility] SERVICES - [facility] Blood, whole 09/14/2021 12:4 6 PM CDT 09/14/2021 4:46 PM CDT Trey Solorzano MD POINT OF CARE TESTJERONIMO Serrano Performing Organization Address [facility] Co de Phone Number [facility]# [id number] [address] [place] [address] * POC GLUCOSE (09/14/2021 11:52 AM CDT) GLUCOSE POC 93 74 - 99 mg/dL 09/14/2021 11:52 AM CDT [facility] SERVICES - [facility] SPECIMEN SOURCE, GLUCOSE POC Whole Blood 09/14/2021 11:52 AM CDT [facility] SERVICES [facility] Blood, whole 09/14/2021 11:5 2 AM CDT 09/14/2021 12:09 PM CDT Trey Solorzano MD POINT OF CARE TESTJERONIMO Serrano Performing Organization Address [facility]/ZIP Co de Phone Number [facility]# [id number] [address] [place] [address] * (ABNORMAL) PROTIME-INR (09/14/2021 10:34 AM CDT) PROTIME 12.4(L) 12.7 - 15.1 Seconds 09/14/2021 11:55 AM CDT [facility] INR 0.9 0.9 - 1.1 09/14/2021 11:55 AM CDT [facility] Blood Venipuncture / Unknown 09/14/2021 10:34 AM CDT 09/14/2021 10:44 AM CDT Narrative [facility] - 09/14/2021 11:55 AM CDT INR Therapeutic Range: Adult: ?? 2.0 - 3.0 for pulmonary embolism or prophylaxis against venous ?thrombosis or systemic embolization. 2.0 - 3.0 for patients with tissue heart valves. 2.5 - 3.5 for patients with mechanical heart valves or post ME. Pediatric ??(12 years and under): 1.5 - 3.0 Although the target range in children is not well established, ?INR values of 1.5 - 3.0 are recommended for most patients. ?Higher values have been used in children with prosthetic ?cardiac valves and hereditary clotting disorders. (<3 days) therapeutic ranges have not been established. Anahi Bass DO HEMATOLOGY ORDERABLE S [facility] [employer] [facility] [id number] [address] [facility] [place] [address] * (ABNORMAL) POC GLUCOSE (09/14/2021 10:33 AM CDT) GLUCOSE POC 137(H) 74 - 99 mg/dL 09/14/2021 10:33 AM CDT [facility] SPECIMEN SOURCE, GLUCOSE POC Whole Blood 09/14/2021 10:33 AM CDT [facility] Blood, whole 09/14/2021 10:3 3 AM CDT 09/14/2021 12:07 PM CDT Trey Solorzano MD POINT OF CARE TESTIN Maggie [facility] CLIA# [id number] [address] [place] [address] * (ABNORMAL) POC GLUCOSE (09/14/2021 9:38 AM CDT) GLUCOSE POC 184(H) 74 - 99 mg/dL 09/14/2021 9:38 AM CDT [employer] LABORATORY SERVICES [facility] SPECIMEN SOURCE, GLUCOSE POC Whole Blood 09/14/2021 9:38 AM CDT [email or web address] Blood, whole 09/14/2021 9:38 AM CDT 09/14/2021 12:07 PM CDT Trey Solorzano MD POINT OF CARE TESTJERONIMO Maggie Performing Organization Address [facility]/ZIP Co de Phone Number [facility] [employer] [facility] CLIA# [id number] [address] [place] [address] * (ABNORMAL) POC GLUCOSE (09/14/2021 8:42 AM CDT) GLUCOSE POC 213(H) 74 - 99 mg/dL 09/14/2021 8:42 AM CDT [email or web address] SPECIMEN SOURCE, GLUCOSE POC Whole Blood 09/14/2021 8:42 AM CDT [email or web address] Blood, whole 09/14/2021 8:42 AM CDT 09/14/2021 12:06 PM CDT Trey Solorzano MD POINT OF CARE TESTJERONIMO Maggie [facility] CLIA# [id number] [address] [place] [address] * (ABNORMAL) CBC WITH DIFFERENTIAL (09/14/2021 4:54 AM CDT) [facility] WBC 5.7 4.0 - 9.8 K/uL 09/14/2021 5:27 AM CDT [facility] [facility]AT[facility] SERVICES - . [facility] RBC 3.43(L) 3.90 - 4.90 M/uL 09/14/2021 5:27 AM CDT [facility]ORAT[facility] SERVICES - . [facility] HEMOGLOBIN 11.3(L) 11.8 - 14.8 g/dL 09/14/2021 5:27 AM CDT [facility] SERVICES - [facility] HEMATOCRIT 32.4(L) 35.5 - 44.0 % 09/14/2021 5:27 AM CDT [facility] - [facility] MCV 94.5 82.0 - 99.0 fL 09/14/2021 5:27 AM CDT [facility] - [facility] MCH 32.9(H) 27.2 - 32.6 pg 09/14/2021 5:27 AM CDT [facility] - [facility] MCHC 34.9 31.5 - 35.5 g/dL 09/14/2021 5:27 AM CDT [facility] - [facility] RDW 16.2(H) 11.5 - 14.5 % 09/14/2021 5:27 AM CDT [facility] - [facility] RDW-STDEV 55.8(H) 37.1 - 48.7 fL 09/14/2021 5:27 AM CDT [facility] - [facility] PLATELETS 240 140 - 350 K/uL 09/14/2021 5:27 AM CDT [facility] - . [facility] MPV 9.5 9.3 - 12.4 fL 09/14/2021 5:27 AM CDT [facility] - . [facility] NEUTROPHILS 59 % 09/14/2021 5:27 AM CDT [facility] - . [facility] LYMPHOCYTES 32 % 09/14/2021 5:27 AM CDT [facility] - . [facility] MONOCYTES 7 % 09/14/2021 5:27 AM CDT [facility] LABORATORY SERVICES - . [facility] EOSINOPHILS 1 % 09/14/2021 5:27 AM CDT [facility] BASOPHILS 1 % 09/14/2021 5:27 AM CDT [facility] SERVICES - . [facility] IMMATURE GRANULOCYTES 1 % 09/14/2021 5:27 AM CDT [facility] SERVICES - . [facility] Comment:IG (Immature Granulo cyte) count includes Metamyelocytes, Myelocytes, and Promyelocytes NEUTROPHIL ABSOLUTE 3.34 1.90 - 7.00 K/uL 09/14/2021 5:27 AM CDT [facility] SERVICES - . [facility] LYMPHOCYTE ABSOLUTE 1.85 0.70 - 4.50 K/uL 09/14/2021 5:27 AM CDT [facility]ORY SERVICES - . [facility] MONOCYTE ABSOLUTE 0.39 0.10 - 1.30 K/uL 09/14/2021 5:27 AM T [facility]ATORY SERVICES - . [facility] EOSINOPHIL ABSOLUTE 0.08 0.00 - 0.70 K/uL 09/14/2021 5:27 AM CDT [facility] SERVICES - . [facility] BASOPHILS ABSOLUTE 0.03 0.00 - 0.20 K/uL 09/14/2021 5:27 AM T [facility] LAB[facility]ORY SERVICES - . [facility] IMMATURE GRANULOCYTES ABSOLUTE 0.03 0.00 - 0.03 K/uL 09/14/2021 5:27 AM T [facility]ATORY SERVICES - [facility] Blood Venipuncture / Unknown 09/14/2021 4:54 AM CDT 09/14/2021 5:00 AM CDT Sharri Cruz NP HEMATOLOGY ORDERABLE S [facility] [employer] [facility] [id number] [address] [facility] [place] [address] * (ABNORMAL) TRIGLYCERIDE (09/14/2021 4:54 AM CDT) [facility] TRIGLYCERIDE >4,425(H) <150 mg/dL 09/14/2021 7:40 AM CDT [facility] Blood Venipuncture / Unknown 09/14/2021 4:54 AM CDT 09/14/2021 5:00 AM CDT Narrative [facility] SERVICES - [facility] - 09/14/2021 7:40 AM CDT TRIGLYCERIDES ? mg/dL Normal ?< 150 Borderline High ?150 - 199 High ? 200 - 499 Very High ? >= 500 Based on AHA/NCEP Guidelines. Sharri Cruz NP CHEMISTRY ORDERABLES Performing Organization Address [facility] Co de Phone Number [facility]# [id number] [address] [place] [address] * (ABNORMAL) POC GLUCOSE (09/14/2021 3:04 AM CDT) GLUCOSE POC 183(H) 74 - 99 mg/dL 09/14/2021 3:04 AM CDT [facility] [employer] [facility] SPECIMEN SOURCE, GLUCOSE POC Whole Blood 09/14/2021 3:04 AM CDT [facility] Blood, whole 09/14/2021 3:04 AM CDT 09/14/2021 3:12 AM CDT Trey Solorzano MD POINT OF CARE TESTIN G Performing Organization Address [facility] Co de Phone Number [facility] [employer] [facility]# [id number] [address] [place] [address] * (ABNORMAL) POC GLUCOSE (09/14/2021 1:59 AM CDT) GLUCOSE POC 175(H) 74 - 99 mg/dL 09/14/2021 1:59 AM CDT [facility] LABORATORY SERVICES - [facility] SPECIMEN SOURCE, GLUCOSE POC Whole Blood 09/14/2021 1:59 AM CDT [email or web address] Blood, whole 09/14/2021 1:59 AM CDT 09/14/2021 3:09 AM CDT Trey Solorzano MD POINT OF CARE TESTJERONIMO Maggie Performing Organization Address [facility]/ZIP Co de Phone Number [facility] [employer] [facility]# [id number] [address] [place] [address] * (ABNORMAL) POC GLUCOSE (09/14/2021 1:01 AM CDT) GLUCOSE POC 229(H) 74 - 99 mg/dL 09/14/2021 1:01 AM CDT [facility] LABORATORY SERVICES [facility] SPECIMEN SOURCE, GLUCOSE POC Whole Blood 09/14/2021 1:01 AM CDT [facility]AT[facility] SERVICES [facility] COMMENT, GLU POC Notified RN/MD 09/14/2021 1:01 AM T [facility]ORATORY SERVICES [facility] Blood, whole 09/14/2021 1:01 AM CDT 09/14/2021 1:09 AM CDT Trey Solorzano MD POINT OF CARE TESTJERONIMO Serrano Performing Organization Address [facility] Co de Phone Number [facility] [employer] [facility]# [id number] [address] [place] [address] * (ABNORMAL) BASIC METABOLIC PANEL (09/14/2021 12:09 AM CDT) SODIUM 127(L) 136 - 145 mmol/L 09/14/2021 1:22 AM T [facility]AT[facility] SERVICES [facility] POTASSIUM 4.5 3.5 - 5.0 mmol/L 09/14/2021 1:22 AM T [facility] Comment:Moderate hemolysis p resent. Can cause significant falsely elevated result. Redraw if indicated. CHLORIDE 90(L) 98 - 107 mmol/L 09/14/2021 1:22 AM CDT [facility] LABORATORY SERVICES [facility] CO2 22 22 - 29 mmol/L 09/14/2021 1:22 AM T [email or web address] SERVICES [facility] CALCIUM 8.4(L) 8.6 - 10.2 mg/dL 09/14/2021 1:22 AM T [facility] BUN 12 6 - 20 mg/dL 09/14/2021 1:22 AM [facility] CREATININE 0.57 0.51 - 0.95 mg/dL 09/14/2021 1:22 AM [facility] GLUCOSE 212(H) 74 - 99 mg/dL 09/14/2021 1:22 AM [facility] GFR >60 >=60 mL/min/1.7 3 sq meter 09/14/2021 1:22 AM [facility] LABORATORY [facility] Comment:eGFR calculated with 2020 CKD-EPI equation. Vegetarian diet, extremely high or low muscle mass, and may affect results. Cystatin C with Glomerular Filtration Rate is a suitable alternative for these patients. ANION GAP 15 8 - 16 mmol/L 09/14/2021 1:22 AM [facility] Blood Venipuncture / Unknown 09/14/2021 12:09 AM CDT 09/14/2021 12:18 AM CDT Juan José Mares MD CHEMISTRY ORD ERABLES [facility]# [id number] [address] [facility] [place] [address] * (ABNORMAL) CALCIUM IONIZED (09/14/2021 12:09 AM CDT) Pathologist [facility] PH, VENOUS 7.33 7.32 - 7.43 09/14/2021 12:31 AM T [facility] CALCIUM IONIZED 4.6(L) 4.8 - 5.2 mg/dL 09/14/2021 12:31 AM T [facility] Blood Venipuncture / Unknown 09/14/2021 12:09 AM CDT 09/14/2021 12:18 AM CDT Juan José Mares MD CHEMISTRY ORD ERABLES Performing Organization Address City/[facility]/ZIP Co de Phone Number [facility]# [id number] [address] [place] [address] * (ABNORMAL) CK (09/14/2021 12:09 AM CDT) CK 205(H) 20 - 180 U/L 09/14/2021 1:04 AM CDT [facility] Comment:Hemolysis present. R esult may be falsely elevated. Blood Venipuncture / Unknown 09/14/2021 12:09 AM CDT 09/14/2021 12:18 AM CDT Juan José Mares MD CHEMISTRY ORD ERABLES Performing Organization Address [facility] Co de Phone Number [facility]# [id number] [address] [place] [address] * ETHANOL LEVEL (09/14/2021 12:09 AM CDT) Pathologist [facility] ETHANOL <10.00 <10.00 mg/dL 09/14/2021 1:30 AM CDT [facility] ETHANOL % <0.01 %w/v 09/14/2021 1:30 AM CDT [facility] Blood Venipuncture / Unknown 09/14/2021 12:09 AM CDT 09/14/2021 12:18 AM CDT Sharri Cruz NP CHEMISTRY ORDERABLES Performing Organization Address [facility]/ZIP Co de Phone Number [facility]# [id number] [address] [place] [address] * (ABNORMAL) POC GLUCOSE (09/13/2021 11:53 PM CDT) GLUCOSE POC 230(H) 74 - 99 mg/dL 09/13/2021 11:53 PM CDT [facility] SPECIMEN SOURCE, GLUCOSE POC Whole Blood 09/13/2021 11:53 PM CDT [facility] COMMENT, GLU POC Notified RN/MD 09/13/2021 11:53 PM CDT [facility] Blood, whole 09/13/2021 11:5 3 PM CDT 09/14/2021 12:00 AM CDT Trey Solorzano MD POINT OF CARE TESTIN G Performing Organization Address [facility]/ZIP Co de Phone Number [facility]# [id number] [address] [place] [address] * HCG QUALITATIVE, URINE (09/13/2021 11:51 PM CDT) HCG QUAL URINE Negative Negative 09/14/2021 12:07 AM CDT [facility] [employer] [facility] COLOR UA Yellow Pale to Dark Yellow 09/14/2021 12:07 AM T [facility] [employer] [facility] CLARITY UA Clear Clear 09/14/2021 12:07 AM T [facility] [employer] [facility] Urine URINE SPECIMEN OBTAINED BY CLEAN CATCH PROCEDURE / Unknown Collection / Unknown 09/13/2021 11:51 PM CDT 09/14/2021 12:01 AM CDT Sharri Cruz NP URINE ORDERABLES Performing Organization Address [facility]/ZIP Co de Phone Number [facility]# [id number] [address] [place] [address] * (ABNORMAL) DRUG SCREEN, URINE (09/13/2021 11:51 PM CDT) AMPHETAMINE QUAL, URINE Negative Negative 09/14/2021 12:26 AM CDT [facility] [employer] [facility] BARBITURATE QUAL, URINE Negative Negative 09/14/2021 12:26 AM CDT [facility] BENZODIAZEPINE QUAL, URINE Negative Negative 09/14/2021 12:26 AM [facility] COCAINE QUAL URINE Negative Negative 09/14/2021 12:26 AM [facility] OPIATE QUAL, URINE Presumptive Positive(A) Negative 09/14/2021 12:26 AM [facility] CANNABINOIDS QUAL, URINE Negative Negative 09/14/2021 12:26 AM [facility] PCP QUAL, URINE Negative Negative 12:26 AM [facility] OXYCODONE QUAL, URINE Negative Negative 09/14/2021 12:26 AM [facility] METHADONE QUAL, URINE Negative Negative 09/14/2021 12:26 AM [facility] CREATININE, URINE 103.2 29.0 - 226.0 mg/dL 09/14/2021 12:26 AM [facility] Comment:Reference Range vari es with fluid intake and diet. Urine URINE SPECIMEN OBTAINED BY CLEAN CATCH PROCEDURE / Unknown Collection / Unknown 09/13/2021 11:51 PM T 09/13/2021 11:58 PM [facility] - 09/14/2021 12:26 AM [facility] This test is a qualitative screen. The presumptive positive results should not be used for legal purposes. If confirmation of results is desired, the lab must be contacted without delay. Drug ? Ref. Range ?Screening Threshold Amphetamines ?Negative ?500 ng/mL Barbiturates ?Negative ?200 ng/mL Benzodiazepines ? Negative ?100 ng/mL Cannabinoids ?Negative ? 50 ng/mL Cocaine ?Negative ?150 ng/mL Methadone ? Negative ?300 ng/mL Opiates ? Negative ?300 ng/mL Oxycodone ? Negative ?100 ng/mL Phencyclidine ? Negative ? 25 ng/mL ? Sharri Cruz ENGRAVED ROLLER INSPECTOR URINE ORDERABLES Performing Organization Address [facility] Co de Phone Number [facility]# [id number] [address] [place] [place] [address] * POC ELECTROLYTES/BMP (09/13/2021 10:53 PM CDT) POTASSIUM POC 4.2 3.5 - 4.9 mmol/L 09/13/2021 10:53 PM CDT [facility] COMMENT, BMP POC RN/MD NOTIFIED 09/13/2021 10:53 PM CDT [facility] Blood 09/13/2021 10:5 3 PM CDT 09/13/2021 10:54 PM CDT Antwon Coyle MD POINT OF CARE TESTING Performing Organization Address [facility] Co de Phone Number [facility]# [id number] [address] [address] * CT ABDOMEN PELVIS W CONTRAST (09/13/2021 10:43 PM CDT) Anatomical Region Laterality Modality Abdomen Computed Tomogra phy 09/13/2021 10:4 5 PM CDT Impressions 09/13/2021 11:03 PM CDT IMPRESSION: 1. A 3 mm right ureteropelvic junction stone with mild urothelial thickening but no hydronephrosis. 2. Trace perisplenic ascites, of unclear etiology. 3. Hepatic steatosis. DICTATION LOCATION: Location 1 - [facility] 09/13/2021 11:03 PM CDT EXAMINATION: CT ABDOMEN PELVIS W CONTRAST HISTORY: abd pain, hx of pancreatitis ?? TECHNIQUE: Computed tomography of the abdomen and pelvis was performed following the uneventful administration of intravenous contrast (IOPAMIDOL 61 % INTRAVENOUS SOLUTION (MULTI-DOSE BULK PACK) Given:120 mL) according to standard protocol. The examination was performed with the adjustment of mA according to the patient size and/or the use of Iterative 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 ?? COMPARISON: 12/26/2020 FINDINGS: ?? LUNG BASES: Within normal limits ?? LIVER: Diffuse hepatic steatosis. BILE DUCTS: Nondilated. GALLBLADDER: Within normal limits. ?? SPLEEN: Within normal limits. ?? PANCREAS: Within normal limits. ?? ADRENALS: Within normal limits. ?? KIDNEYS/URETERS: A 3 mm stone in the right ureteropelvic junction without hydronephrosis but mild urothelial thickening in the renal pelvis. BOWEL: Normal in caliber. ?? PERITONEUM/RETROPERITONEUM: Trace perisplenic ascites. No free air or enlarged lymph nodes. PELVIC ORGANS: Uterus is absent. Ovaries and bladder are within normal limits. VESSELS: Abdominal aorta is mildly atherosclerotic but normal in caliber. ABDOMINAL WALL: Within normal limits. ?? BONES: No suspicious lytic or blastic lesions. Procedure Note Ceasar Grayson MD - 09/13/2021 EXAMINATION: CT ABDOMEN PELVIS W CONTRAST HISTORY: abd pain, hx of pancreatitis TECHNIQUE: Computed tomography of the abdomen and pelvis was performed following the uneventful administration of intravenous contrast (IOPAMIDOL 61 % INTRAVENOUS SOLUTION (MULTI-DOSE BULK PACK) Given:120 mL) according to standard protocol. The examination was performed with the adjustment of mA according to the patient size and/or the use of Iterative 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 COMPARISON: 12/26/2020 FINDINGS: LUNG BASES: Within normal limits LIVER: Diffuse hepatic steatosis. BILE DUCTS: Nondilated. GALLBLADDER: Within normal limits. SPLEEN: Within normal limits. PANCREAS: Within normal limits. ADRENALS: Within normal limits. KIDNEYS/URETERS: A 3 mm stone in the right ureteropelvic junction without hydronephrosis but mild urothelial thickening in the renal pelvis. BOWEL: Normal in caliber. PERITONEUM/RETROPERITONEUM: Trace perisplenic ascites. No free air or enlarged lymph nodes. PELVIC ORGANS: Uterus is absent. Ovaries and bladder are within normal limits. VESSELS: Abdominal aorta is mildly atherosclerotic but normal in caliber. ABDOMINAL WALL: Within normal limits. BONES: No suspicious lytic or blastic lesions. IMPRESSION: 1. A 3 mm right ureteropelvic junction stone with mild urothelial thickening but no hydronephrosis. 2. Trace perisplenic ascites, of unclear etiology. 3. Hepatic steatosis. DICTATION LOCATION: Location 1 - [facility] Antwon Coyle MD CT ORDERABLES * (ABNORMAL) URINALYSIS WITH REFLEX CULTURE (09/13/2021 8:18 PM CDT) COLOR UA Yellow Pale to Dark Yellow 09/13/2021 8:47 PM CDT [facility] CLARITY UA Clear Clear 09/13/2021 8:47 PM CDT [facility] SPECIFIC GRAVITY UA 1.024 1.003 - 1.035 09/13/2021 8:47 PM CDT [facility] PH UA 5.0 5.0 - 8.0 09/13/2021 8:47 PM CDT [email or web address] LEUKOCYTE ESTERASE UA Negative Negative 09/13/2021 8:47 PM CDT [facility] NITRITE UA Negative Negative 09/13/2021 8:47 PM CDT [facility] PROTEIN UA 2+(A) Negative 09/13/2021 8:47 PM CDT [facility] GLUCOSE UA 3+(A) Negative 09/13/2021 8:47 PM CDT [facility] KETONES UA Trace(A) Negative 09/13/2021 8:47 PM CDT [facility] UROBILINOGEN UA Normal <2.0 mg/dL 8:47 PM CDT [facility] BILIRUBIN UA Negative Negative 09/13/2021 8:47 PM CDT [facility] BLOOD UA Negative Negative 09/13/2021 8:47 PM CDT [facility] WBC UA 0-2 0 - 2 /hpf 09/13/2021 8:47 PM CDT [facility] RBC UA 3-5(A) 0 - 2 /hpf 09/13/2021 8:47 PM CDT [facility] BACTERIA UA Negative Negative /hpf 09/13/2021 8:47 PM CDT [facility] - . [facility] EPITHELIAL CELLS, URINE 6-10(A) 0 - 5 /hpf 09/13/2021 8:47 PM CDT [facility] Urine URINE SPECIMEN OBTAINED BY CLEAN CATCH PROCEDURE / Unknown Collection / Unknown 09/13/2021 8:18 PM CDT 09/13/2021 8:18 PM CDT Antwon Coyle MD URINE ORDERAB LES Performing Organization Address City/State/[facility] Co de Phone Number [facility]# [id number] [address] [place] [address] * (ABNORMAL) TRIGLYCERIDE (09/13/2021 6:49 PM CDT) TRIGLYCERIDE >4,425(H) <150 mg/dL 09/13/2021 7:55 PM CDT [facility] Blood Venipuncture / Unknown 09/13/2021 6:49 PM CDT 09/13/2021 6:52 PM CDT Narrative [facility] - 09/13/2021 7:55 PM CDT TRIGLYCERIDES ? mg/dL Normal ?< 150 Borderline High ?150 - 199 High ? 200 - 499 Very High ? >= 500 Based on AHA/NCEP Guidelines. Antwon Coyle MD CHEMISTRY ORD ERABLES [facility] - [facility]# [id number] [address] [place] [address] * (ABNORMAL) COMPREHENSIVE METABOLIC PANEL (09/13/2021 6:49 PM CDT) SODIUM 127(L) 136 - 145 mmol/L 09/13/2021 8:40 PM CDT [facility] POTASSIUM 09/13/2021 8:40 PM CDT [facility] Comment:Test cannot be perfo rmed due to gross hemolysis present. Redraw if indicated. CHLORIDE 90(L) 98 - 107 mmol/L 09/13/2021 8:40 PM CDT [facility] CO2 22 22 - 29 mmol/L 09/13/2021 8:40 PM CDT [facility] CALCIUM 9.5 8.6 - 10.2 mg/dL 09/13/2021 8:40 PM CDT [facility] BUN 12 6 - 20 mg/dL 09/13/2021 8:40 PM CDT [facility] CREATININE 0.53 0.51 - 0.95 mg/dL 09/13/2021 8:40 PM CDT [facility] GLUCOSE 281(H) 74 - 99 mg/dL 09/13/2021 8:40 PM CDT [facility] TOTAL PROTEIN 6.9 6.7 - 8.6 g/dL 09/13/2021 8:40 PM CDT [facility] ALBUMIN 4.6 3.5 - 5.2 g/dL 09/13/2021 8:40 PM CDT [facility] BILIRUBIN TOTAL 0.3 0.3 - 1.2 mg/dL 09/13/2021 8:40 PM CDT [facility] ALKALINE PHOSPHATASE 09/13/2021 8:40 PM CDT [facility] Comment:Test cannot be perfo rmed due to gross hemolysis present. Redraw if indicated. AST 39(H) <33 U/L 09/13/2021 8:40 PM CDT [facility] Comment: Cleared of chylomicrons. Hemolysis present. ??Result may be falsely elevated. ALT 16 <34 U/L 09/13/2021 8:40 PM CDT [facility] Comment: Cleared of chylomicrons. Hemolysis present. ??Result may be falsely elevated. GFR >60 >=60 mL/min/1.7 3 sq meter 09/13/2021 8:40 PM CDT [facility] Comment:eGFR calculated with 2020 CKD-EPI equation. Vegetarian diet, extremely high or low muscle mass, and may affect results. Cystatin C with Glomerular Filtration Rate is a suitable alternative for these patients. ANION GAP 15 8 - 16 mmol/L 09/13/2021 8:40 PM CDT [facility] Blood Venipuncture / Unknown 09/13/2021 6:49 PM CDT 09/13/2021 6:52 PM CDT Narrative [facility] - 09/13/2021 8:40 PM CDT Samples containing indocyanine green cause interferences on Total and/or Direct Bilirubin and must not be measured. Antwon Coyle MD CHEMISTRY ORD ERABLES [facility] [employer] [facility]# [id number] [address] [place], [place] [address] [address] * LIPASE (09/13/2021 6:49 PM CDT) LIPASE 33 13 - 60 U/L 09/13/2021 7:34 PM CDT [facility] [employer] [facility] Blood Venipuncture / Unknown 09/13/2021 6:49 PM CDT 09/13/2021 6:52 PM CDT Antwon Coyle MD CHEMISTRY ORD ERABLES [facility] CLIA# [id number] [address] [place] [address] * (ABNORMAL) CBC WITH DIFFERENTIAL (09/13/2021 6:49 PM CDT) [facility] WBC 9.1 4.0 - 9.8 K/uL 09/13/2021 7:09 PM CDT [facility] RBC 3.95 3.90 - 4.90 M/uL 09/13/2021 7:09 PM CDT [facility] HEMOGLOBIN 12.8 11.8 - 14.8 g/dL 09/13/2021 7:09 PM CDT [facility] HEMATOCRIT 35.6 35.5 - 44.0 % 09/13/2021 7:09 PM CDT [facility] MCV 90.1 82.0 - 99.0 fL 09/13/2021 7:09 PM CDT [facility] MCH 32.4 27.2 - 32.6 pg 09/13/2021 7:09 PM CDT [facility] MCHC 36.0(H) 31.5 - 35.5 g/dL 09/13/2021 7:09 PM CDT [facility] RDW 16.0(H) 11.5 - 14.5 % 09/13/2021 7:09 PM CDT [facility] - . [facility] RDW-STDEV 52.7(H) 37.1 - 48.7 fL 09/13/2021 7:09 PM CDT [facility] PLATELETS 293 140 - 350 K/uL 09/13/2021 7:09 PM CDT [facility] MPV 9.4 9.3 - 12.4 fL 09/13/2021 7:09 PM CDT [facility] NEUTROPHILS 71 % 09/13/2021 7:09 PM CDT [facility] LYMPHOCYTES 23 % 09/13/2021 7:09 PM CDT [facility] MONOCYTES 5 % 09/13/2021 7:09 PM CDT [facility] - . [facility] EOSINOPHILS 1 % 09/13/2021 7:09 PM CDT [facility] BASOPHILS 0 % 09/13/2021 7:09 PM CDT [facility] - . [facility] IMMATURE GRANULOCYTES 1 % 09/13/2021 7:09 PM CDT [facility] Comment:IG (Immature Granulo cyte) count includes Metamyelocytes, Myelocytes, and Promyelocytes NEUTROPHIL ABSOLUTE 6.45 1.90 - 7.00 K/uL 09/13/2021 7:09 PM CDT [facility] LYMPHOCYTE ABSOLUTE 2.11 0.70 - 4.50 K/uL 09/13/2021 7:09 PM CDT [facility] - . [facility] MONOCYTE ABSOLUTE 0.41 0.10 - 1.30 K/uL 09/13/2021 7:09 PM CDT [facility] EOSINOPHIL ABSOLUTE 0.07 0.00 - 0.70 K/uL 09/13/2021 7:09 PM CDT [facility] BASOPHILS ABSOLUTE 0.03 0.00 - 0.20 K/uL 09/13/2021 7:09 PM T [facility] - . [facility] IMMATURE GRANULOCYTES ABSOLUTE 0.05(H) 0.00 - 0.03 K/uL 09/13/2021 7:09 PM T [facility] - . [facility] Blood Venipuncture / Unknown 09/13/2021 6:49 PM CDT 09/13/2021 6:52 PM CDT Antwon Coyle MD HEMATOLOGY OR DERABLES [id number] [address] [facility] [place] [address] documented in this encounter Visit Diagnoses Diagnosis Acute pancreatitis, unspecified complication status, unspecified pancreatitis type- Primary Severe recurrent major depression without psychotic features Major depressive disorder, recurrent episode, severe, without mention of psychotic behavior History of plasmapheresis Hypertriglyceridemia Pure hyperglyceridemia Suicide ideation Suicidal ideation Hyponatremia Hyposmolality and/or hyponatremia Diabetes mellitus type I Type I (juvenile type) diabetes mellitus without mention of complication, not stated as uncontrolled Severe episode of recurrent major depressive disorder, without psychotic features documented in this encounter Administered Medications Inactive Administered Medications - up to 3 most recent administrations Medication Order MAR Action Action Date Dose Rate Site atorvastatin (LIPITOR) tablet 80 mg 80 mg, Oral, DAILY AT BEDTIME, First dose on Sat09/14/21 at 0030, Until Discontinued, Routine Given 09/19/2021 8:36 PM CDT 80 mg Given 09/18/2021 10:30 PM CDT 80 mg Given 09/17/2021 8:30 PM CDT 80 mg buPROPion HCL (WELLBUTRIN SR) 12 hour tablet 150 mg 150 mg, Oral, TWO TIMES DAILY, First dose on Sat09/14/21 at 0900, Until Discontinued, Routine, Previous Med: buPROPion HCL (WELLBUTRIN SR) 150 mg Sustained Release 12 hour tablet - Orig Sig - TAKE 1 TABLET BY MOUTH 2 TIMES DAILY Given 09/17/2021 8:20 AM CDT 150 mg Given 09/16/2021 8:31 PM CDT 150 mg Given 09/16/2021 8:23 AM CDT 150 mg buPROPion HCL (WELLBUTRIN XL) 24 hour tablet 450 mg 450 mg, Oral, DAILY, First dose on Sat09/18/21 at 0900, Until Discontinued, Routine Given 09/20/2021 2:29 PM CDT 450 mg Given 09/19/2021 12:31 PM CDT 450 mg Given 09/18/2021 11:35 AM CDT 450 mg calcium GLUCONATE 1,000 mg in sodium chloride (iso-osmotic) 50 mL IVPB 1,000 mg, IV, INTRA-PROCEDURE ONCE, 1 dose, Starting on Sat09/14/21 at 1300, Until Sat09/14/21 at 1458, Routine Rate Change 09/14/2021 2:22 PM CDT 68.83 mL/hr New Bag 09/14/2021 2:12 PM CDT 1,000 mg 50 mL/hr calcium GLUCONATE 2,000 mg in sodium chloride (iso-osmotic) 100 mL IVPB 2,000 mg, IV, ONE TIME ONLY, 1 dose, On Sat09/14/21 at 0900, Routine Rate Verify 09/14/2021 2:00 PM CDT 50 mL/hr Restarted 09/14/2021 1:15 PM CDT 50 mL/hr Rate Verify 09/14/2021 1:00 PM CDT 50 mL/hr calcium GLUCONATE 2,000 mg in sodium chloride (iso-osmotic) 100 mL IVPB 2,000 mg, IV, ONE TIME ONLY, 1 dose, On Katie 09/14/21 at 1700, Routine Rate Verify 09/14/2021 6:00 PM CDT 50 mL/hr Rate Verify 09/14/2021 5:00 PM CDT 50 mL/hr Rate Verify 09/14/2021 4:45 PM CDT 50 mL/hr calcium GLUCONATE 2,000 mg in sodium chloride (iso-osmotic) 100 mL IVPB 2,000 mg, IV, ONE TIME ONLY, 1 dose, On Sat09/15/21 at 1100, Routine New Bag 09/15/2021 1:22 PM CDT 2,000 mg 100 mL/hr calcium GLUCONATE 2,000 mg in sodium chloride (iso-osmotic) 100 mL IVPB 2,000 mg, IV, ONE TIME ONLY, 1 dose, On 09/16/21 at 1230, Routine, Intra-Procedure Rate Change 09/16/2021 1:22 PM CDT 120 mL/hr New Bag 09/16/2021 1:22 PM CDT 2,000 mg 50 mL/hr cetirizine (ZyrTEC) tablet 10 mg 10 mg, Oral, DAILY, First dose on Katie 09/14/21 at 0115, Until Discontinued, Routine Given 09/20/2021 8:47 AM CDT 10 mg Given 09/19/2021 8:29 AM CDT 10 mg Given 09/18/2021 8:51 AM CDT 10 mg citalopram (CeleXA) tablet 40 mg 40 mg, Oral, DAILY, First dose on Katie 09/14/21 at 0900, Until Discontinued, Routine, Previous Med: citalopram (CeleXA) 40 mg tablet - Orig Sig - TAKE 1 TABLET BY MOUTH EVERY DAY Given 09/20/2021 8:55 AM CDT 40 mg Given 09/19/2021 8:29 AM CDT 40 mg Given 09/18/2021 9:09 AM CDT 40 mg dextrose 10% infusion IV, at 75 mL/hr, CONTINUOUS, Starting on Sat09/14/21 at 1315, Until Sat09/14/21 at 1635, Routine Restarted 09/14/2021 3:53 PM CDT 75 mL/ hr Rate Verify 09/14/2021 3:00 PM CDT 75 mL/hr Rate Verify 09/14/2021 2:00 PM CDT 75 mL/hr dextrose 5% - sodium chloride 0.9% infusion IV, at 40 mL/hr, SEE ADMIN INSTRUCTIONS, Starting on Sat09/14/21 at 0904, Until Sat09/14/21 at 1155, Routine Rate Verify 09/14/2021 1:00 PM CDT 100 mL/hr Rate Verify 09/14/2021 12:00 PM CDT 100 mL/hr Rate Change 09/14/2021 11:54 AM CDT 100 mL/hr dextrose 5% - sodium chloride 0.9% infusion IV, at 40 mL/hr, SEE ADMIN INSTRUCTIONS, Starting on Sat09/14/21 at 1519, Until Sat09/20/21 at 2056, Routine dextrose 50% (D50) syringe 12.5 Gram 12.5 Gram, IV, SEE ADMIN INSTRUCTIONS, Starting on Sat09/14/21 at 0904, Until Sat09/20/21 at 2056, Routine dextrose 50% (D50) syringe 25 Gram 25 Gram, IV, SEE ADMIN INSTRUCTIONS, Starting on Sat09/14/21 at 0904, Until Sat09/20/21 at 2056, Routine diphenhydrAMINE (BENADRYL) injection 25 mg 25 mg, IV, INTRA-PROCEDURE ONCE, 1 dose, Starting on 09/16/21 at 1036, Until 09/16/21 at 1100, Routine, Please tube to station [id number], blood bank Given 09/16/2021 11:00 AM CDT 25 mg diphenhydrAMINE (BENADRYL) tablet 25 mg 25 mg, Oral, EVERY 6 HOURS PRN, Starting on Sat09/14/21 at 0108, Until Sat09/14/21 at 0928, Itching, Routine Given 09/14/2021 6:42 AM CDT 25 mg Given 09/14/2021 1:14 AM CDT 25 mg diphenhydrAMINE (BENADRYL) tablet 25 mg 25 mg, Oral, TWO TIMES DAILY PRN, Starting on 09/16/21 at 1012, Until 09/19/21 at 1053, Itching, Routine Given 09/18/2021 9:52 PM CDT 25 mg Given 09/18/2021 1:34 PM CDT 25 mg Given 09/17/2021 8:33 AM CDT 25 mg enoxaparin (LOVENOX) injection 40 mg 40 mg, subCUT, EVERY 24 HOURS, First dose on Sat09/14/21 at 0900, Until Discontinued, Routine, Indication: Prophylaxis of VTE, Dose to be adjusted per facility protocol? Yes Given 09/20/2021 8:46 AM CDT 40 mg Abdom inal Tissue Given 09/19/2021 8:28 AM CDT 40 mg Ab dominal Tissue Given 09/18/2021 8:51 AM CDT 40 mg Ab dominal Tissue fenofibrate (LOFIBRA) tablet 160 mg 160 mg, Oral, DAILY, First dose on Sat09/14/21 at 0900, Until Discontinued, Routine, Previous Med: fenofibrate (LOFIBRA) 160 mg Tablet - Orig Sig - TAKE 1 TABLET BY MOUTH EVERY DAY Given 09/20/2021 8:50 AM CDT 160 mg Given 09/19/2021 8:30 AM CDT 160 mg Given 09/18/2021 9:08 AM CDT 160 mg glucagon human recombinant (GLUCAGEN) 1 mg/mL injection 1 mg 1 mg, IM, SEE ADMIN INSTRUCTIONS, Starting on Sat09/14/21 at 0904, Until Sat09/20/21 at 205, Routine heparin, porcine (pf) 10 unit/mL IV syringe 20 Units 20 Units, See Admin Instructions, ONE TIME ONLY, 1 dose, On Sat09/14/21 at 1215, Routine, Please tube to station [id number], blood bank Given 09/14/2021 12:15 PM CDT 20 Units C hest, Right heparin, porcine (pf) 10 unit/mL IV syringe 20 Units 20 Units, IV, ONE TIME ONLY, 1 dose, On Sat09/15/21 at 1100, Routine, TUBE TO 516 Given 09/15/2021 2:27 PM CDT 20 Units heparin, porcine (pf) 10 unit/mL IV syringe 20 Units 20 Units, See Admin Instructions, ONE TIME ONLY, 1 dose, On 09/16/21 at 1100, Routine, Please tube to station [id number], blood bank Given 09/16/2021 2:23 PM CDT 20 Units Ch est, Left heparin, porcine lock flush (pf) 100 unit/mL injection 500 Units 500 Units, See Admin Instructions, ONE TIME ONLY, 1 dose, On Katie 09/14/21 at 1215, Routine, Please tube to station 516, blood bank Given 09/14/2021 2:00 PM CDT 500 Units Ch est, Right heparin, porcine lock flush (pf) 100 unit/mL injection 500 Units 500 Units, See Admin Instructions, ONE TIME ONLY, 1 dose, On Katie 09/14/21 at 1215, Routine, Please tube to station [id number], blood bank Given 09/14/2021 2:00 PM CDT 500 Units Ch est, Left heparin, porcine lock flush (pf) 100 unit/mL injection 500 Units 500 Units, IV, ONE TIME ONLY, 1 dose, On Sat09/15/21 at 1100, Routine, TUBE TO 516 Given 09/15/2021 2:28 PM CDT 500 Units heparin, porcine lock flush (pf) 100 unit/mL injection 500 Units 500 Units, IV, ONE TIME ONLY, 1 dose, On Sat09/15/21 at 1100, Routine, TUBE TO 516 Given 09/15/2021 2:25 PM CDT 500 Units heparin, porcine lock flush (pf) 100 unit/mL injection 500 Units 500 Units, See Admin Instructions, ONE TIME ONLY, 1 dose, On 09/16/21 at 1100, Routine, Please tube to station [id number], blood bank Given 09/16/2021 2:24 PM CDT 500 Units Ch est, Left heparin, porcine lock flush (pf) 100 unit/mL injection 500 Units 500 Units, See Admin Instructions, ONE TIME ONLY, 1 dose, On 09/16/21 at 1100, Routine, Please tube to station [id number], blood bank Given 09/16/2021 2:24 PM CDT 500 Units Ch est, Left HYDROmorphone (DILAUDID) 2 mg/mL injection 0.5 mg 0.5 mg, IV, ONE TIME ONLY, 1 dose, On Sat09/13/21 at 2215, Stat Given 09/13/2021 10:14 PM CDT 0.5 mg HYDROmorphone (DILAUDID) 2 mg/mL injection 0.5 mg 0.5 mg, IV, ONE TIME ONLY, 1 dose, On Sat09/13/21 at 2300, Stat Given 09/13/2021 11:11 PM CDT 0.5 mg HYDROmorphone (DILAUDID) 2 mg/mL injection 0.5 mg 0.5 mg, IV, EVERY 3 HOURS PRN, Starting on Sat09/14/21 at 0106, Until Sat09/19/21 at 1053, Pain (See admin instructions), Pain, Moderate, Routine Given 09/18/2021 11:48 AM CDT 0.5 mg Given 09/14/2021 6:42 AM CDT 0.5 mg Given 09/14/2021 4:12 AM CDT 0.5 mg hydrOXYzine HCL (ATARAX) tablet 25 mg 25 mg, Oral, EVERY 6 HOURS PRN, Starting on Sat09/17/21 at 1538, Until Sat09/20/21 at 0820, Anxiety, Routine Given 09/19/2021 6:17 PM CDT 25 mg hydrOXYzine HCL (ATARAX) tablet 25 mg 25 mg, Oral, EVERY 6 HOURS PRN, Starting on Sat09/19/21 at 1723, Until Sat09/20/21 at 2057, Anxiety, Routine Given 09/20/2021 3:27 PM CDT 25 mg Given 09/20/2021 8:52 AM CDT 25 mg Given 09/20/2021 12:30 AM CDT 25 mg insulin lispro (HumaLOG) injection 0-4 Units 0-4 Units, subCUT, DAILY AT BEDTIME, First dose on Sat09/14/21 at 2100, Until Discontinued, Routine Given 09/17/2021 10:48 PM CDT 2 Units Arm, Right Upper Given 09/16/2021 8:35 PM CDT 2 Units Ar m, Right Given 09/15/2021 8:42 PM CDT 3 Units Ab domen, Left Lower Quadrant insulin lispro (HumaLOG) injection 0-9 Units 0-9 Units, subCUT, THREE TIMES DAILY WITH MEALS, First dose on Sat09/14/21 at 1700, Until Discontinued, Routine Given 09/20/2021 1:02 PM CDT 3 Units Arm, Right Given 09/20/2021 10:13 AM CDT 3 Units A rm, Right Given 09/19/2021 6:18 PM CDT 5 Units Ar m, Left Upper insulin NPH human (HUMULIN N,NOVOLIN N) injection 10 Units 10 Units, subCUT, TWO TIMES DAILY BEFORE MEALS, First dose on Sat09/18/21 at 0900, Until Discontinued, Routine Given 09/20/2021 10:14 AM CDT 10 Units Arm, Left Given 09/19/2021 6:20 PM CDT 10 Units Ar m, Left Upper Given 09/19/2021 8:47 AM CDT 10 Units Ar m, Left Upper insulin NPH human (HUMULIN N,NOVOLIN N) injection 12 Units 12 Units, subCUT, TWO TIMES DAILY BEFORE MEALS, First dose (after last modification) on Sat09/20/21 at 1630, Until Discontinued, Routine insulin regular (HUMULIN R,NOVOLIN R) 1 Units/mL in sodium chloride 0.9% infusion 0-25 Units/hr (0-25 mL/hr), IV, TITRATE, Starting on Katie 09/14/21 at 0045, Until Sat09/14/21 at 0145 New Bag 09/14/2021 12:46 AM CDT 8.4 Units/hr 8.4 mL/hr insulin regular (HUMULIN R,NOVOLIN R) 1 Units/mL in sodium chloride 0.9% infusion 9 Units/hr (9 mL/hr), IV, CONTINUOUS, Starting on Sat09/14/21 at 0830, Until Sat09/14/21 at 1417 Rate Verify 09/14/2021 2:00 PM CDT 9 Units/hr 9 mL/hr Rate Verify 09/14/2021 1:02 PM CDT 9 Units/hr 9 mL/hr Rate Verify 09/14/2021 1:00 PM CDT 9 Units/hr 9 mL/hr iopamidoL (ISOVUE-300) 61% injection (drawn from multi-use bulk pack) 120 mL 120 mL, IV, INTRA-PROCEDURE ONCE, 1 dose, Starting on Sat09/13/21 at 2239, Until Sat09/13/21 at 2243, Routine Contrast Given 09/13/2021 10:43 PM CDT 120 mL lactated ringers bolus solution 1,000 mL 1,000 mL, IV, ONE TIME ONLY, 1 dose, On Sat09/13/21 at 2045, at 2,000 mL/hr, Administer over 30 Minutes, Stat New Bag 09/13/2021 9:15 PM CDT 1,000 mL 2000 mL/hr levothyroxine (SYNTHROID) tablet 200 mcg 200 mcg, Oral, DAILY EARLY, First dose on Sat09/14/21 at 0600, Until Discontinued, Routine, Previous Med: levothyroxine 200 mcg tablet - Orig Sig - Take 1 Tablet (200 mcg) by mouth daily. Once daily on an empty stomach Given 09/20/2021 4:41 AM CDT 200 mcg Given 09/19/2021 4:16 AM CDT 200 mcg Given 09/18/2021 5:34 AM CDT 200 mcg morphine 4 mg/mL injection 4 mg 4 mg, IV, ONE TIME ONLY, 1 dose, On Sat09/13/21 at 2014, Routine Given 09/13/2021 8:28 PM CDT 4 mg naloxone (NARCAN) 0.4 mg/mL injection 0.1 mg 0.1 mg, IV, SEE ADMIN INSTRUCTIONS, Starting on Sat09/13/21 at 2344, Until Sat09/20/21 at 2056, Routine omega-3 acid ethyl esters (LOVAZA) capsule 2 Gram 2 Gram, Oral, TWO TIMES DAILY WITH MEALS, First dose on Sat09/14/21 at 0800, Until Discontinued, Routine, Previous Med: Fish Oil-[place]-3 Fatty Acids 360-1,200 mg Capsule - Orig Sig - Take 2 Capsules by mouth 2 times daily with meals. Given 09/20/2021 8:48 AM CDT 2 Grams Given 09/19/2021 6:20 PM CDT 2 Grams Given 09/19/2021 8:29 AM CDT 2 Grams ondansetron (ZOFRAN) 4 mg/2 mL injection 4 mg 4 mg, IV, ONE TIME ONLY, 1 dose, On Sat09/13/21 at 2015, Routine Given 09/13/2021 8:28 PM CDT 4 mg ondansetron (ZOFRAN) 4 mg/2 mL injection 4 mg 4 mg, IV, ONE TIME ONLY, 1 dose, On Sat09/13/21 at 2300, Routine Given 09/13/2021 11:18 PM CDT 4 mg oxyCODONE (ROXICODONE) tablet 5 mg 5 mg, Oral, FOUR TIMES DAILY, First dose on Sat09/14/21 at 0930, Until Discontinued, Routine Given 09/19/2021 8:32 AM CDT 5 mg Given 09/18/2021 9:52 PM CDT 5 mg Given 09/18/2021 6:10 PM CDT 5 mg oxyCODONE (ROXICODONE) tablet 5 mg 5 mg, Oral, EVERY 4 HOURS PRN, Starting on Sat09/19/21 at 1100, Until Sat09/20/21 at 2057, Pain (See admin instructions), Routine Given 09/19/2021 8:37 PM CDT 5 mg oxyCODONE (ROXICODONE) tablet 7.5 mg 7.5 mg, Oral, EVERY 6 HOURS PRN, Starting on Sat09/14/21 at 0927, Until Sat09/19/21 at 1053, Pain (See admin instructions), Routine Given 09/19/2021 4:15 AM CDT 7.5 mg Given 09/17/2021 5:27 AM CDT 7.5 mg Given 09/15/2021 10:29 AM CDT 7.5 mg pantoprazole (PROTONIX) tablet 40 mg 40 mg, Oral, DAILY BEFORE BREAKFAST, First dose on Sat09/14/21 at 0830, Until Discontinued, Routine, Indication: Gastroesophageal reflux disease (GERD) Given 09/20/2021 8:46 AM CDT 40 mg Given 09/19/2021 8:29 AM CDT 40 mg Given 09/18/2021 9:07 AM CDT 40 mg polyethylene glycol (MIRALAX) packet 17 Gram 17 Gram, Oral, ONE TIME ONLY, 1 dose, On Sat09/14/21 at 0015, Routine Given 09/14/2021 1:01 AM CDT 17 Grams potassium Cl in dextrose 5% - NaCl 0.9% 1,000 mL 20 mEq/L infusion IV, at 125 mL/hr, CONTINUOUS, Starting on Sat09/14/21 at 0015, Until Sat09/14/21 at 0145, Routine Rate Verify 09/14/2021 1:00 AM CDT 125 mL/hr New Bag 09/14/2021 12:50 AM CDT 125 mL/hr sennosides (SENOKOT) tablet 17.2 mg 17.2 mg, Oral, TWO TIMES DAILY, First dose on Sat09/14/21 at 0015, Until Discontinued, Routine Given 09/18/2021 8:52 AM CDT 17.2 mg Given 09/17/2021 8:32 PM CDT 17.2 mg Given 09/17/2021 8:20 AM CDT 17.2 mg sodium chloride 0.9% bolus solution 500 mL 500 mL, IV, ONE TIME ONLY, 1 dose, On Sat09/14/21 at 1245, at 3,000 mL/hr, Administer over 10 Minutes, Routine New Bag 09/14/2021 12:54 PM CDT 500 mL 3000 mL/hr sodium chloride flush injection 10 mL 10 mL, IV, ONE TIME ONLY, 1 dose, On Sat09/13/21 at 2245, Routine Given 09/13/2021 10:45 PM CDT 10 mL sodium chloride flush injection 10 mL 10 mL, IV, ONE TIME ONLY, 1 dose, On Sat09/15/21 at 1100, Routine Given 09/15/2021 2:26 PM CDT 10 mL sodium chloride flush injection 10 mL 10 mL, IV, ONE TIME ONLY, 1 dose, On Sat09/15/21 at 1100, Routine Given 09/15/2021 2:28 PM CDT 10 mL sodium chloride flush injection 20 mL 20 mL, IV, ONE TIME ONLY, 1 dose, On Sat09/15/21 at 1100, Routine Given 09/15/2021 2:25 PM CDT 20 mL traZODone (DESYREL) tablet 100 mg 100 mg, Oral, DAILY AT BEDTIME, First dose on Sat09/14/21 at 0000, Until Discontinued, Routine, Previous Med: traZODone (DESYREL) 100 mg tablet - Orig Sig - Take 100 mg by mouth daily at bedtime . Given 09/19/2021 8:37 PM CDT 100 mg Given 09/18/2021 9:52 PM CDT 100 mg Given 09/17/2021 8:30 PM CDT 100 mg traZODone (DESYREL) tablet 50 mg 50 mg, Oral, NIGHTLY PRN, Starting on 09/17/21 at 1539, Until Sat09/20/21 at 2056, Insomnia, Routine documented in this encounter Active and Recently Administered Medications Times are shown in CDT. Scheduled Medication Order 09/18/2021 09/19/2021 09/20/2021 atorvastatin (LIPITOR) tablet 80 mg 80 mg, Oral, DAILY AT BEDTIME, First dose on Katie 09/14/21 at 0030, Until Discontinued, Routine 2229 (Given - Provider: Jud Garcia RN) 2035 (Given - Provider: Jud Garcia RN) buPROPion HCL (WELLBUTRIN XL) 24 hour tablet 450 mg 450 mg, Oral, DAILY, First dose on 09/18/21 at 0900, Until Discontinued, Routine 1135 (Given - Provider: Brenda Lagos RN) 1231 (Given - Provider: Brenda Lagos RN) 1429 (Given - Provider: Brenda Lagos RN) cetirizine (ZyrTEC) tablet 10 mg 10 mg, Oral, DAILY, First dose on Katie 09/14/21 at 0115, Until Discontinued, Routine 0851 (Given - Provider: Brenda Lagos RN) 0829 (Given - Provider: Brenda Lagos RN) 0847 (Given - Provider: Brenda Lagos RN) citalopram (CeleXA) tablet 40 mg (CANCELED) 40 mg, Oral, DAILY, First dose on Katie 09/14/21 at 0900, Until Discontinued, Routine, Previous Med: citalopram (CeleXA) 40 mg tablet - Orig Sig - TAKE 1 TABLET BY MOUTH EVERY DAY 0909 (Given - Provider: Brenda Lagos RN) 0829 (Given - Provider: Brenda Lagos RN) 0855 (Given - Provider: Brenda Lagos RN) dextrose 5% - sodium chloride 0.9% infusion IV, at 40 mL/hr, SEE ADMIN INSTRUCTIONS, Starting on Katie 09/14/21 at 1519, Until Sat09/20/21 at 2056, Routine dextrose 50% (D50) syringe 12.5 Gram 12.5 Gram, IV, SEE ADMIN INSTRUCTIONS, Starting on Sat09/14/21 at 0904, Until Sat09/20/21 at 2056, Routine dextrose 50% (D50) syringe 25 Gram 25 Gram, IV, SEE ADMIN INSTRUCTIONS, Starting on Sat09/14/21 at 0904, Until Sat09/20/21 at 2056, Routine enoxaparin (LOVENOX) injection 40 mg 40 mg, subCUT, EVERY 24 HOURS, First dose on Sat09/14/21 at 0900, Until Discontinued, Routine, Indication: Prophylaxis of VTE, Dose to be adjusted per facility protocol? Yes 0851 (Given - Provider: Brenda Lagos RN) 0828 (Given - Provider: Brenda Lagos RN) 0846 (Given - Provider: Brenda Lagos RN) fenofibrate (LOFIBRA) tablet 160 mg 160 mg, Oral, DAILY, First dose on Sat09/14/21 at 0900, Until Discontinued, Routine, Previous Med: fenofibrate (LOFIBRA) 160 mg Tablet - Orig Sig - TAKE 1 TABLET BY MOUTH EVERY DAY 0908 (Given - Provider: Brenda Lagos RN) 0830 (Given - Provider: Brenda aLgos RN) 0850 (Given - Provider: Brenda Lagos RN) glucagon human recombinant (GLUCAGEN) 1 mg/mL injection 1 mg 1 mg, IM, SEE ADMIN INSTRUCTIONS, Starting on Sat09/14/21 at 0904, Until Sat09/20/21 at 2056, Routine insulin lispro (HumaLOG) injection 0-4 Units 0-4 Units, subCUT, DAILY AT BEDTIME, First dose on Sat09/14/21 at 2100, Until Discontinued, Routine 2156 (Not Given - Provider: Jud Garcia RN - Reason: Lab results - Comment: bs 170) 2036 (Not Given - Provider: Jud Garcia RN - Reason: Lab results - Comment: bs 171) insulin lispro (HumaLOG) injection 0-9 Units 0-9 Units, subCUT, THREE TIMES DAILY WITH MEALS, First dose on Sat09/14/21 at 1700, Until Discontinued, Routine 1008 (Given - Provider: Melissa Torrez RN - Comment: BS::[id number])1328 (Given - Provider: Brenda Lagos RN)1802 (Given - Provider: Brenda Lagos RN) 0846 (Given - Provider: Brenda Lagos RN)1300 (Given - Provider: Brenda Lagos RN)1818 (Given - Provider: Brenda Lagos RN) 1013 (Given - Provider: Brenda Lagos RN)1302 (Given - Provider: Brenda Lagos RN)1700 (Not Given - Provider: Brenda Lagos RN - Reason: Other - See Comment) insulin NPH human (HUMULIN N,NOVOLIN N) injection 10 Units (CANCELED) 10 Units, subCUT, TWO TIMES DAILY BEFORE MEALS, First dose on Sat09/18/21 at 0900, Until Discontinued, Routine 1134 (Given - Provider: Brenda Lagos RN)1802 (Given - Provider: Brenda Lagos RN) 0847 (Given - Provider: Brenda Lagos RN)1820 (Given - Provider: Brenda Lagos RN) 1014 (Given - Provider: Brenda Lagos RN) insulin NPH human (HUMULIN N,NOVOLIN N) injection 12 Units 12 Units, subCUT, TWO TIMES DAILY BEFORE MEALS, First dose (after last modification) on Sat09/20/21 at 1630, Until Discontinued, Routine 1630 (Not Given - Provider: Brenda Lagos RN - Reason: Other - See Comment) levothyroxine (SYNTHROID) tablet 200 mcg 200 mcg, Oral, DAILY EARLY, First dose on Sat09/14/21 at 0600, Until Discontinued, Routine, Previous Med: levothyroxine 200 mcg tablet - Orig Sig - Take 1 Tablet (200 mcg) by mouth daily. Once daily on an empty stomach 0534 (Given - Provider: Jaja ePrez RN) 0416 (Given - Provider: Jud Garcia RN) 0441 (Given - Provider: Jud Garcia RN) naloxone (NARCAN) 0.4 mg/mL injection 0.1 mg 0.1 mg, IV, SEE ADMIN INSTRUCTIONS, Starting on Sat09/13/21 at 2344, Until Sat09/20/21 at 2057, Routine omega-3 acid ethyl esters (LOVAZA) capsule 2 Gram 2 Gram, Oral, TWO TIMES DAILY WITH MEALS, First dose on Sat09/14/21 at 0800, Until Discontinued, Routine, Previous Med: Fish Oil-[place]-3 Fatty Acids 360-1,200 mg Capsule - Orig Sig - Take 2 Capsules by mouth 2 times daily with meals. 0907 (Given - Provider: Brenda Lagos RN)1801 (Given - Provider: Brenda Lagos RN) 0829 (Given - Provider: Brenda Lagos RN)1820 (Given - Provider: Brenda Lagos RN) 0848 (Given - Provider: Brenda Lagos RN)1700 (Not Given - Provider: Brenda Lagos RN - Reason: Other - See Comment) oxyCODONE (ROXICODONE) tablet 5 mg (CANCELED) 5 mg, Oral, FOUR TIMES DAILY, First dose on Katie 09/14/21 at 0930, Until Discontinued, Routine 0851 (Given - Provider: Brenda Lagos RN)1506 (Given - Provider: Brenda Lagos RN)1810 (Given - Provider: Brenda Lagos RN)2152 (Given - Provider: Jud Garcia RN) 0832 (Given - Provider: Brenda Lagos RN) pantoprazole (PROTONIX) tablet 40 mg 40 mg, Oral, DAILY BEFORE BREAKFAST, First dose on Katie 09/14/21 at 0830, Until Discontinued, Routine, Indication: Gastroesophageal reflux disease (GERD) 0907 (Given - Provider: Brenda Lagos RN) 0829 (Given - Provider: Brenda Lagos RN) 0846 (Given - Provider: Brenda Lagos RN) sennosides (SENOKOT) tablet 17.2 mg 17.2 mg, Oral, TWO TIMES DAILY, First dose on Katie 09/14/21 at 0015, Until Discontinued, Routine 0852 (Given - Provider: Brenda Lagos RN)2100 (Refused - Provider: Jud Garcia RN) 0828 (Refused - Provider: Brenda Lagos RN)2038 (Refused - Provider: Jud Garcia RN) 0900 (Refused - Provider: Brenda Lagos RN) traZODone (DESYREL) tablet 100 mg 100 mg, Oral, DAILY AT BEDTIME, First dose on Katie 09/14/21 at 0000, Until Discontinued, Routine, Previous Med: traZODone (DESYREL) 100 mg tablet - Orig Sig - Take 100 mg by mouth daily at bedtime . 2151 (Given - Provider: Jud Garcia RN) 2036 (Given - Provider: Jud Garcia RN) PRN Medication Order 09/18/2021 09/19/2021 09/20/2021 diphenhydrAMINE (BENADRYL) tablet 25 mg (CANCELED) 25 mg, Oral, TWO TIMES DAILY PRN, Starting on 09/16/21 at 1012, Until Sat09/19/21 at 1053, Itching, Routine 1334 (Given - Provider: Brenda Lagos RN)2151 (Given - Provider: Jud Garcia RN) HYDROmorphone (DILAUDID) 2 mg/mL injection 0.5 mg (CANCELED) 0.5 mg, IV, EVERY 3 HOURS PRN, Starting on Katie 09/14/21 at 0106, Until Sat09/19/21 at 1053, Pain (See admin instructions), Pain, Moderate, Routine 1148 (Given - Provider: Brenda Lagos RN) hydrOXYzine HCL (ATARAX) tablet 25 mg (CANCELED) 25 mg, Oral, EVERY 6 HOURS PRN, Starting on Sat09/17/21 at 1538, Until Sat09/20/21 at 0820, Anxiety, Routine 1817 (Given - Provider: Brenda Lagos RN)2038 [facility] Jud [facility]) hydrOXYzine HCL (ATARAX) tablet 25 mg 25 mg, Oral, EVERY 6 HOURS PRN, Starting on Sat09/19/21 at 1723, Until Sat09/20/21 at 2057, Anxiety, Routine 1815 (Not Given - Provider: Brenda Lagos RN - Reason: Other - See Comment - Comment: already given) 0030 (Given - Provider: Jud Garcia RN)0852 (Given - Provider: Brenda Lagos RN)1527 (Given - Provider: Brenda Lagos RN) oxyCODONE (ROXICODONE) tablet 5 mg 5 mg, Oral, EVERY 4 HOURS PRN, Starting on Sat09/19/21 at 1100, Until Sat09/20/21 at 2056, Pain (See admin instructions), Routine 2036 (Given - Provider: Jud Garcia RN) oxyCODONE (ROXICODONE) tablet 7.5 mg (CANCELED) 7.5 mg, Oral, EVERY 6 HOURS PRN, Starting on Katie 09/14/21 at 0927, Until Tu09/19/21 at 1053, Pain (See admin instructions), Routine 414 (Given - Provider: Jud Garcia RN) traZODone (DESYREL) tablet 50 mg 50 mg, Oral, NIGHTLY PRN, Starting on 09/17/21 at 1539, Until Sat09/20/21 at 2056, Insomnia, Routine documented in this encounter Care Teams Dining Car Conductor Relationship Specialty Start Date End Date Guerrero Middleton PA-C PCP - General Physician Industrial Economist 02/13/18 documented as of this encounter
--- OUTSIDE RECORDS SUMMARY | 2024-05-03 20:38 | XMS_ITS | Encounter Summary ---
Author Organization [facility] Address [address] [place] [address] Care Team Providers Care Decorating Machine Tender Name Role Phone Guerrero Middleton PA-C Primary Care Provide r Reason for Visit * Reason Onset Date Comments petr rubin 09/13/2021 Encounter Details Date Type Department Care Team (Late st Contact Info) Description 09/13/[address] [facility] Donor Services [address] [address] Gloria Tristan, RN petr [facility] Social History Tobacco Use Types Packs/Day Years [...] often do you attend chur ch or protestant services? Never 08/21/2018 Do you belong to [...] Description 09/14/2024 3:00 PM CDT Office Visit [facility] [place] [address] [place] [address] Marlys Mayer MD [address] [place] [address] documented as of this encounter Visit Diagnoses Not on filedocumented in this encounter Additional Health Concerns Infection Onset Date Last Indicated Resolved Time R/O GI Pathogen 09/19/2023 09/19/2023 09/21/2023 7 :33 AM CDT documented as of this encounter Care Teams Decorating Machine Tender Relationship Specialty Start Date End Date Guerrero Middleton PA-C PCP - General Physician Lotus Notes Developer 02/13/18 documented as of this encounter
--- OUTSIDE RECORDS SUMMARY | 2024-05-03 20:38 | XMS_ITS | Encounter Summary ---
Author Organization [facility] Address [address] Orozco: Epic Prelude ADT [place] [address] Care Team Providers Care Core Analysis Operator Name Role Phone Guerrero Middleton PA-C Primary Care Provide r Encounter Details Date Type Department Care Team (Latest Contact Info) Description 06/07/2021 Travel Social History Tobacco Use Types Packs/Day [...] How often do you attend [facility] or anglican services? Never 08/21/2018 Do you belong to any clubs o r organizations such as congregation groups, unions, fraternal or athletic groups, or [...] have Coronavirus / COVID-19? No / Unsure 06/07/2021 8:59 AM [place] documented as of this encounter Plan of Treatment Upcoming Encounters Date Type Department Care Team (Late st Contact Info) Description 09/14/2024 3:00 PM CDT Office [facility] [address] [place] [address] Marlys Mayer MD [address] [place], [place] [id number] documented as of this encounter Visit Diagnoses Not on filedocumented in this encounter Additional Health Concerns Assessment Noted Time PHQ-9 Depression Total Score: 1 08/11/19 21 6:30 PM CDT documented as of this encounter Care Teams Core Analysis Operator Relationship Specialty Start Date End Date Guerrero Middleton PA-C PCP - General Physician Trading Assistant 02/13/18 documented as of this encounter
--- OUTSIDE RECORDS SUMMARY | 2024-05-03 20:38 | XMS_ITS | Encounter Summary ---
Author Organization [facility] Address [address] [place] [address] Care Team Providers Care Hard Metals Engraver Hand Name Role Phone Guerrero Middleton PA-C Primary Care Provide r Reason for Visit * Reason Onset Date Comments Needs Appointment 09/06/2021 Encounter Details Date Type Department Care Team (Late st Contact Info) Description 09/06/2021 Telephone [facility] Donor Services [address] [address] Cathy Ken, CLAU Needs Appointment Social History Tobacco Use Types [...] often do you attend chur ch or anglican services? Never 08/21/2018 Do you [...] [facility] [place] [facility] [address] [place] [address] Marlys Mayer MD [address] [place] [address] documented as of this encounter Visit Diagnoses Not on filedocumented in this encounter Care Teams Hard Metals Engraver Hand Relationship Specialty Start Date End Date Guerrero Middleton PA-C PCP - General Physician Chuck Boner 02/13/18 documented as of this encounter
--- OUTSIDE RECORDS SUMMARY | 2024-05-03 20:38 | XMS_ITS | Encounter Summary ---
Author Organization [facility] Address [address] Orozco: Epic Prelude ADT [place] [address] Care Team Providers Care Foster Parent Name Role Phone Guerrero Middleton PA-C Primary Care Provide r Encounter Details Date Type Department Care Team (Latest Contact Info) Description 08/17/2021 Travel Social History Tobacco Use Types Packs/Day [...] week 08/21/2018 How often do you attend [facility] or amish services? Never 08/21/2018 Do you belong to [...] suspected to have Coronavirus/COVID-19? No / Unsure 08/17/2021 9:03 AM CDT documented as of this encounter Plan of Treatment Upcoming Encounters Date Type Department Care Team (Late st Contact Info) Description 09/14/2024 3:00 PM CDT Office [facility] [address] [place] [address] Marlys Mayer MD [address] [place], [place] [id number] documented as of this encounter Visit Diagnoses Not on filedocumented in this encounter Additional Health Concerns Assessment Noted Time PHQ-9 Depression Total Score: 1 08/11/19 21 6:30 PM CDT documented as of this encounter Care Teams Foster Parent Relationship Specialty Start Date End Date Guerrero Middleton PA-C PCP - General Physician Customer Accounts Advisor 02/13/18 documented as of this encounter
--- OUTSIDE RECORDS SUMMARY | 2024-05-03 20:38 | XMS_ITS | Encounter Summary ---
Author Organization [facility] Address [address] Orozco: Epic Prelude ADT [place] [address] Care Team Providers Care Process Control Manager Name Role Phone Guerrero Middleton PA-C Primary Care Provide r Encounter Details Date Type Department Care Team (Latest Contact Info) Description 05/25/2021 Travel Social History Tobacco Use Types Packs/Day [...] week 08/21/2018 How often do you attend [facility] or druze services? Never 08/21/2018 Do you belong to any clubs o r organizations such as jehovah's witness groups, unions, fraternal or athletic groups, or [...] COVID-19? No / Unsure 05/25/2021 11:18 AM TRANSPORTATION INSPECTOR documented as of this encounter Plan of Treatment Upcoming Encounters Date Type Department Care Team (Late st Contact Info) Description 09/14/2024 3:00 PM CDT Office Visit [facility] [address] [place] [address] Marlys Mayer MD [address] [place], [place] [id number] documented as of this encounter Visit Diagnoses Not on filedocumented in this encounter Additional Health Concerns Assessment Noted Time PHQ-9 Depression Total Score: 1 08/11/19 21 6:30 PM CDT documented as of this encounter Care Teams Process Control Manager Relationship Specialty Start Date End Date Guerrero Middleton PA-C PCP - General Physician Feed Inspection Supervisor 02/13/18 documented as of this encounter
--- OUTSIDE RECORDS SUMMARY | 2024-05-03 20:38 | XMS_ITS | Encounter Summary ---
Author Organization [facility] Address [address] [place] [address] Care Team Providers Care Computer Tech Name Role Phone Guerrero Middleton PA-C Primary Care Provide r Reason for Visit * Reason Comments Medication Refill Encounter Details Date Type Department Care Team (Late st Contact Info) Description 05/22/2021 Refill [facility] Endocrinology [address] [place] [address] Coty Pierson MD [address] [place] [address] Social History Tobacco Use Types Packs/Day Years [...] AM CDT documented as of this encounter Miscellaneous Notes * Telephone Encounter - Prudence Gates MD - 05/23/2021 1:32 PM GLUE MILL OPERATOR Send to PCP MILL OPERATOR * Telephone Encounter - Lexus Iyer - 05/23/2021 1:11 PM CST [place]: 11/09/2020 CA: 04/19/2021 NOV: not lesia. MILL OPERATOR documented in this encounter Plan of Treatment Upcoming Encounters Date Type Department Care Team (Late st Contact Info) Description 09/14/2024 3:00 PM CDT Office Visit [facility] [address] [place] [address] Marlys Mayer MD [address] [place] [address] documented as of this encounter Visit Diagnoses Not on filedocumented in this encounter Additional Health Concerns Assessment Noted Time PHQ-9 Depression Total Score: 1 08/11/19 21 6:30 PM CDT documented as of this encounter Care Teams Computer Tech Relationship Specialty Start Date End Date Guerrero Middleton PA-C PCP - General Physician Flipping Machine Operator 02/13/18 documented as of this encounter
--- OUTSIDE RECORDS SUMMARY | 2024-05-03 20:38 | XMS_ITS | Encounter Summary ---
Author Organization [facility] Address [address] Orozco: Epic Prelude ADT [place] [address] Care Team Providers Care Aws Solution Architect Name Role Phone Guerrero Middleton PA-C Primary Care Provide r Encounter Details Date Type Department Care Team (Latest Contact Info) Description 09/13/2021 Travel Social History Tobacco Use Types Packs/Day [...] How often do you attend [facility] or roman catholic services? Never 08/21/2018 Do you belong [...] [facility] [place] [facility] [address] [place] [address] Marlys Mayer MD [address] [place] [address] documented as of this encounter Visit Diagnoses Not on filedocumented in this encounter Care Teams Aws Solution Architect Relationship Specialty Start Date End Date Guerrero Middleton PA-C PCP - General Physician Pottery Striper 02/13/18 documented as of this encounter
--- OUTSIDE RECORDS SUMMARY | 2024-05-03 20:38 | XMS_ITS | Encounter Summary ---
Author Organization [facility] Address [address] [place] [address] Care Team Providers Care Spanish Translator Name Role Phone Guerrero Middleton PA-C Primary Care Provide r Encounter Details Date Type Department Care Team (Latest Contact Info) Description 08/23/2021 9:00 AM CDT - 08/23/2021 11:59 PM CDT Hospital Encounter [facility] Donor Services [facility] [address] [place] [address] Phoenix Riddle MD [address] [facility] [place] [address] Discharge Disposition: Home or Self [...] often do you attend chur ch or episcopal services? Never 08/21/2018 Do you [...] suspected to have Coronavirus/COVID-19? No / Unsure 08/23/2021 9:20 AM CDT documented as of this encounter Last Filed Vital Signs Vital Sign Reading Time Taken Comments Blood Pressure 126/85 08/23/2021 11:12 AM CDT Pulse 99 08/23/2021 11:12 AM CDT Temperature 36.8 ??C (98.2 ??F) 08/23/2021 11:12 AM C DT Respiratory Rate 18 08/23/2021 11:12 AM CDT Oxygen Saturation - - Inhaled Oxygen Concentration [...] tablet TAKE 1 TABLET BY MOUTH EVERY FUNERAL HOME MANAGER 30 Tablet 06/01/2021 09/19/2023 Vascepa 1 gram [...] as of this encounter Progress Notes * Delroy Tristan RN - 08/23/2021 9:00 AM CDT Plasma exchange completed today using R/L chest bard ports for draw and return. 1.0 volume, 100% fluid balance using 5% albumin as replacement fluid completed. 2 grams calcium gluconate given intra procedure. Patient tolerated procedure well. Next procedure scheduled for 08/24/2021. * Phoenix Riddle MD - 08/23/2021 9:00 AM CDT CC: ??45??yo female undergoing prophylaxis for??hypertriglyceridemic pancreatitis in the setting ofrecurrent necrotizing pancreatitis requires??plasma exchange. ?? Interval history:??Patient reports worsening abdominal pain beginning yesterday, up to 610, with mild nausea. Describes her pain as a pressure sensation, which for her typically precedes more severe, sharp pain. Patient also complains of generalized fatigue. ?? Procedure note: 1.0 volume plasma exchange with 5% albumin replacement, 100% fluid balance, 2 g calcium gluconate during procedure. Patient tolerated the procedure well, without complaint or adverse event. ?? 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 Exam: General Appearance: - Patient appears to be in mild discomfort Skin: - Mild bruising of R port site, both L and R show occlusive dressing without hemorrhage or sign of infection Respiratory: - Unlabored breathing Neuro: - Alert and Oriented ?? Labs: 06/07/21 preprocedure triglycerides: ??1377 mg/dL 06/07/21 postproedeure triglycerides:?518??mg/dL 06/14/21 preprocedure triglycerides: ??>4425 mg/dL 06/14/21 postprocedure triglycerides: ??2324 mg/dL?? 07/20/21 preprocedure triglycerides: ??>4425 mg/dL 07/20/21 postprocedure triglycerides: ?3042 mg/dL 08/09/21 preprocedure triglycerides >4425 mg/dL 08/09/21 postprocedures triglycerides 4,170 mg/dL 08/14/21 preprocedure triglycerides: ??>4425 mg/dL 08/14/21 postprocedure triglycerides: ??3440 mg/dL 08/15/21 preprocedure triglycerides: ??>4425 mg/dL 08/15/21 postprocedure triglycerides: ??1933 mg/dL 08/17/21 triglycerides: >4425 mg/dL 08/21/21 preprocedure triglycerides: ??>4425 mg/dL 08/21/21 postprocedure triglycerides: 2782 mg/dL 08/23/21 preprocedure triglycerides: >4425 mg/dL 08/23/21 postprocedure triglycerides: 2301 mg/dL ?? A&P: 1. 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 2. Continue maintenance PLEX with 1.0 volume exchange, 5% albumin replacement, 100% fluid volume, 2g calcium gluconate during procedure on a weekly basis, or more frequent based on symptoms and triglyceride levels. 3. Worsening abdominal pain and fatigue with continued elevated triglycerides, will attempt an additional procedure tomorrow and reevaluate. ?? I have??seen and examined the patient,??reviewed pertinent notes and records,??and remained immediately available throughout the procedure. ?? Phoenix Riddle MD Hydraulic Tester, therapeutic apheresis service [phone] documented in this encounter Plan of Treatment Upcoming Encounters Date Type Department Care Team (Late st Contact Info) Description 09/14/2024 3:00 PM CDT Office Visit [facility] Heart and Vascular - [facility] [phone] [place] [address] Marlys Mayer MD [address] [place], [place] [id number] documented as of this encounter Procedures Procedure Name Priority Date/Time Associated Diagnosis Comments TRIGLYCERIDE Routine 08/23/2021 10:41 AM CDT Hypertriglyceridemia TRIGLYCERIDE Routine 08/23/2021 9:43 AM CDT Hypertriglyceridemia documented in this encounter Results * (ABNORMAL) TRIGLYCERIDE (08/23/2021 10:41 AM CDT) TRIGLYCERIDE 2,301(H) <150 mg/dL 08/23/2021 12:28 PM CDT [facility] Blood BLOOD SPECIMEN / Unknown Collection / Unknown 08/23/2021 10:41 AM CDT 08/23/2021 11:20 AM CDT Narrative [facility] [employer] [facility] - 08/23/2021 12:28 PM CDT TRIGLYCERIDES ? mg/dL Normal ?< 150 Borderline High ?150 - 199 High ? 200 - 499 Very High ? >= 500 Based on AHA/NCEP Guidelines. Phoenix Riddle MD CHEMISTRY ORDERABLE S Performing Organization Address [facility] Co de Phone Number [facility] [employer] [facility]# [id number] [address] [place] [address] * (ABNORMAL) TRIGLYCERIDE (08/23/2021 9:43 AM CDT) TRIGLYCERIDE >4,425(H) <150 mg/dL 08/23/2021 11:04 AM CDT [facility] [employer] [facility] Blood BLOOD SPECIMEN / Unknown Collection / Unknown 08/23/2021 9:43 AM CDT 08/23/2021 9:45 AM CDT Narrative [facility] [employer] [facility] - 08/23/2021 11:04 AM CDT TRIGLYCERIDES ? mg/dL Normal ?< 150 Borderline High ?150 - 199 High ? 200 - 499 Very High ? >= 500 Based on AHA/NCEP Guidelines. Phoenix Riddle MD CHEMISTRY ORDERABLE S Performing Organization Address [facility] de Phone Number [facility] [employer] [facility]# [id number] [address] [place] [address] documented in this encounter Visit Diagnoses Diagnosis Hypertriglyceridemia- Primary Pure hyperglyceridemia documented in this encounter Administered Medications Inactive Administered Medications - up to 3 most recent administrations Medication Order MAR Action Action Date Dose Rate Site calcium GLUCONATE 2,000 mg in sodium chloride (iso-osmotic) 100 mL IVPB 2,000 mg, IV, ONE TIME ONLY, 1 dose, On 08/23/21 at 0830, Routine New Bag 08/23/2021 9:45 AM CDT 2,000 mg 100 mL /hr heparin, porcine (pf) 10 unit/mL IV syringe 20 Units 20 Units, IV, ONE TIME ONLY, 1 dose, On Sat08/23/21 at 0830, Routine, Tube to 516 Given 08/23/2021 10:34 AM CDT 20 Units heparin, porcine lock flush (pf) 100 unit/mL injection 500 Units 500 Units, IV, ONE TIME ONLY, 1 dose, On Sat08/23/21 at 0830, Routine, Tube to 516 Given 08/23/2021 10:34 AM CDT 500 Units heparin, porcine lock flush (pf) 100 unit/mL injection 500 Units 500 Units, IV, ONE TIME ONLY, 1 dose, On Sat08/23/21 at 0830, Routine, Tube to station 516 Given 08/23/2021 10:33 AM CDT 500 Units sodium chloride flush injection 10 mL 10 mL, IV, ONE TIME ONLY, 1 dose, On Sat08/23/21 at 0830, Routine Given 08/23/2021 10:34 AM CDT 10 mL sodium chloride flush injection 10 mL 10 mL, IV, ONE TIME ONLY, 1 dose, On Sat08/23/21 at 0830, Routine Given 08/23/2021 10:34 AM CDT 10 mL sodium chloride flush injection 20 mL 20 mL, IV, ONE TIME ONLY, 1 dose, On Sat08/23/21 at 0830, Routine Given 08/23/2021 10:33 AM CDT 20 mL documented in this encounter Additional Health Concerns Assessment Noted Time PHQ-9 Depression Total Score: 1 08/11/19 21 6:30 PM CDT documented as of this encounter Care Teams Spanish Translator Relationship Specialty Start Date End Date Guerrero Middleton PA-C PCP - General Physician Park Recreation Manager 02/13/18 documented as of this encounter
--- OUTSIDE RECORDS SUMMARY | 2024-05-03 20:38 | XMS_ITS | Encounter Summary ---
Author Organization [facility] Address [address] [place] [address] Care Team Providers Care Netbackup Engineer Name Role Phone Guerrero Middleton PA-C Primary Care Provide r Encounter Details Date Type Department Care Team (Latest Contact Info) Description 08/09/2021 9:30 AM CDT - 08/09/2021 11:59 PM CDT Hospital Encounter [facility]or Services [address] [address] Nicole Rosas MD [address] [place] [address] Discharge Disposition: Home or Self Care [...] often do you attend chur ch or confucianism services? Never 08/21/2018 Do you belong to any clubs o r organizations such as anabaptism groups, unions, fraternal or athletic groups, or [...] Sign Reading Time Taken Comments Blood Pressure 124/84 08/09/2021 11:15 AM CDT Pulse 82 08/09/2021 11:15 AM CDT Temperature 36.6 ??C (97.8 ??F) 08/09/2021 11:15 AM C DT Respiratory Rate 18 08/09/2021 11:15 AM CDT Oxygen Saturation - - Inhaled [...] tablet TAKE 1 TABLET BY MOUTH EVERY BRICKLAYER SEWER 30 Tablet 06/01/2021 09/19/2023 Vascepa 1 gram [...] Progress Notes * Delroy Tristan RN - 08/09/2021 9:30 AM CDT Plasma exchange completed today using R/L chest bard ports for draw and return. 1.0 volume, 100% fluid balance using 5% albumin as replacement fluid completed. 2 grams calcium gluconate given intra procedure. Patient tolerated procedure well. Next procedure scheduled for 08/14/2021. * Nicole Mondragon MD - 08/09/2021 9:30 AM CDT CC: ??45??yo female undergoing prophylaxis for??hypertriglyceridemic pancreatitis in the setting ofrecurrent necrotizing pancreatitis requires??plasma exchange. ?? Interval history:??Patient has missed her last several appointments due to transportation issues and schedule conflicts. She reports feeling not well today and plans to resume weekly PLEX. ?? Procedure note: 1.0 volume plasma exchange with 5% albumin replacement, 100% fluid balance, 2 g calcium gluconate during procedure.?Patient tolerated the procedure without complaints or adverse events. ?? 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 Exam: General Appearance: - Well nourished, no acute distress Skin: - R??and L??chest port sites??unremarkable Respiratory: - Unlabored breathing Neuro: - Alert and Oriented ?? Labs: 06/07/21 preprocedure triglycerides: ??1377 mg/dL 06/07/21 postproedeure triglycerides:?518??mg/dL 06/14/21 preprocedure triglycerides: ??>4425 mg/dL 06/14/21 postprocedure triglycerides: ??2324 mg/dL?? 07/20/21 preprocedure triglycerides: >4425 mg/dL 07/20/21 postprocedure triglycerides: 3042 mg/dL 08/09/21 preprocedure triglycerides >4425 mg/dL 08/09/21 postprocedures triglycerides 4,170 mg/dL ?? A&P: 1. 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 2. Continue maintenance PLEX with 1.0 volume exchange, 5% albumin replacement, 100% fluid volume, 2g calcium gluconate during procedure on a weekly basis, or more frequent based on symptoms and triglyceride levels. 3. Next procedure??scheduled??08/14/21. ?? I have??seen and examined the patient,??reviewed pertinent notes and records,??and remained immediately available throughout the procedure. ?? Nicole Mondragon MD Spragger, therapeutic apheresis service [phone] documented in this encounter Plan of Treatment Upcoming Encounters Date Type Department Care Team (Late st Contact Info) Description 09/14/2024 3:00 PM CDT Office Visit [facility] Heart and Vascular - [facility] [address] [address] [place] [address] Marlys Mayer MD [address] [place] [address] documented as of this encounter Procedures Procedure Name Priority Date/Time Associated Diagnosis Comments TRIGLYCERIDE Routine 08/09/2021 11:25 AM CDT Hypertriglyceridemi a TRIGLYCERIDE Routine 08/09/2021 9:48 AM CDT Hypertriglyceridemi a CBC WITHOUT DIFFERENTIAL Routine 08/09/2021 9:47 AM CDT Hypertriglyceridemi a documented in this encounter Results * (ABNORMAL) TRIGLYCERIDE (08/09/2021 11:25 AM CDT) TRIGLYCERIDE 4,170(H) <150 mg/dL 08/09/2021 12:15 PM CDT [facility] [employer] [facility] Blood Venipuncture / Unknown 08/09/2021 11:25 AM CDT 08/09/2021 11:25 AM CDT Narrative [facility] [employer] [facility] - 08/09/2021 12:15 PM CDT TRIGLYCERIDES ? mg/dL Normal ?< 150 Borderline High ?150 - 199 High ? 200 - 499 Very High ? >= 500 Based on AHA/NCEP Guidelines. Nicole Rosas MD CHEMISTRY YONI SERRANO [facility] [employer] [facility] CLIA# [id number] [address] [place] [address] * (ABNORMAL) TRIGLYCERIDE (08/09/2021 9:48 AM CDT) TRIGLYCERIDE >4,425(H) <150 mg/dL 08/09/2021 11:22 AM CDT [facility] [employer] [facility] Blood BLOOD SPECIMEN / Unknown Collection / Unknown 08/09/2021 9:48 AM CDT 08/09/2021 9:53 AM CDT [facility] - 08/09/2021 11:22 AM CDT TRIGLYCERIDES ? mg/dL Normal ?< 150 Borderline High ?150 - 199 High ? 200 - 499 Very High ? >= 500 Based on AHA/NCEP Guidelines. Nicole Rosas MD CHEMISTRY ORDTima SERRANO [facility] [employer] [facility]# [id number] [address] [place], [place] [id number] * (ABNORMAL) CBC WITHOUT DIFFERENTIAL (08/09/2021 9:47 AM CDT) Pathologist [facility] WBC 9.6 4.0 - 9.8 K/uL 08/09/2021 11:05 AM [facility] RBC 4.29 3.90 - 4.90 M/uL 08/09/2021 11:05 AM [facility] [employer] [facility] HEMOGLOBIN 13.0 11.8 - 14.8 g/dL 08/09/2021 11:05 AM [facility] Comment:Results corrected fo r elevated lipids. HEMATOCRIT 37.2 35.5 - 44.0 % 08/09/2021 11:05 AM [facility] [employer] [facility] MCV 86.7 82.0 - 99.0 fL 08/09/2021 11:05 AM [facility] [employer] [facility] MCH 30.3 27.2 - 32.6 pg 08/09/2021 11:05 AM [facility] [employer] [facility] MCHC 34.9 31.5 - 35.5 g/dL 08/09/2021 11:05 AM [facility] [employer] [facility] PLATELETS 440(H) 140 - 350 K/uL 08/09/2021 11:05 AM CDT [facility] MPV 9.5 9.3 - 12.4 fL 08/09/2021 11:05 AM T [facility] LABORATORY SERVICES - . KIMO RDW 15.1(H) 11.5 - 14.5 % 08/09/2021 11:05 AM T [facility] RDW-STDEV 48.0 37.1 - 48.7 fL 08/09/2021 11:05 AM T [facility] Blood BLOOD SPECIMEN / Unknown Collection / Unknown 08/09/2021 9:47 AM CDT 08/09/2021 9:53 AM CDT Nicole Rosas MD HEMATOLOGY ORD ERABLES [facility]ATORY [facility]# [id number] [address] [address] documented in this encounter Visit Diagnoses Diagnosis Hypertriglyceridemia- Primary Pure hyperglyceridemia documented in this encounter Administered Medications Inactive Administered Medications - up to 3 most recent administrations Medication Order MAR Action Action Date Dose Rate Site calcium GLUCONATE 2,000 mg in sodium chloride (iso-osmotic) 100 mL IVPB 2,000 mg, IV, INTRA-PROCEDURE ONCE, 1 dose, Starting on Sat08/09/21 at 0900, Until Sat08/09/21 at 1050, Routine New Bag 08/09/2021 9:50 AM CDT 2,000 mg 100 mL /hr heparin, porcine (pf) 10 unit/mL IV syringe 20 Units 20 Units, IV, ONE TIME ONLY, 1 dose, On Sat08/09/21 at 0930, Routine, Tube to 516, blood bank Given 08/09/2021 10:57 AM CDT 20 Units heparin, porcine lock flush (pf) 100 unit/mL injection 500 Units 500 Units, IV, ONE TIME ONLY, 1 dose, On Sat08/09/21 at 0930, Routine, Tube to 516, blood bank Given 08/09/2021 10:57 AM CDT 500 Units heparin, porcine lock flush (pf) 100 unit/mL injection 500 Units 500 Units, IV, ONE TIME ONLY, 1 dose, On Sat08/09/21 at 0930, Routine, Tube to 516, blood bank Given 08/09/2021 10:58 AM CDT 500 Units sodium chloride flush injection 10 mL 10 mL, IV, ONE TIME ONLY, 1 dose, On Sat08/09/21 at 0930, Routine Given 08/09/2021 10:56 AM CDT 10 mL sodium chloride flush injection 10 mL 10 mL, IV, ONE TIME ONLY, 1 dose, On Sat08/09/21 at 0930, Routine Given 08/09/2021 10:57 AM CDT 10 mL sodium chloride flush injection 20 mL 20 mL, IV, ONE TIME ONLY, 1 dose, On Sat08/09/21 at 0930, Routine Given 08/09/2021 10:58 AM CDT 20 mL documented in this encounter Additional Health Concerns Assessment Noted Time PHQ-9 Depression Total Score: 1 08/11/19 21 6:30 PM CDT documented as of this encounter Care Teams Netbackup Engineer Relationship Specialty Start Date End Date Guerrero Middleton PA-C PCP - General Physician Thermal Cutter Helper 02/13/18 documented as of this encounter
--- OUTSIDE RECORDS SUMMARY | 2024-05-03 20:38 | XMS_ITS | Encounter Summary ---
Author Organization [facility] Address [address] [place] [address] Care Team Providers Care Blockman Name Role Phone Guerrero Middleton PA-C Primary Care Provide r Reason for Visit * Reason Comments Medication Refill Encounter Details Date Type Department Care Team (Late st Contact Info) Description 05/31/2021 Refill [facility] Endocrinology [address] [place] [address] Prudence Gates MD [address] [place] [address] Social History Tobacco Use Types Packs/Day Years [...] any clubs o r organizations such as adventist groups, unions, fraternal or athletic groups, or [...] Description 09/14/2024 3:00 PM CDT [facility] [address] [place] [phone] Marlys Mayer MD [address] [place] [address] documented as of this encounter Visit Diagnoses Not on filedocumented in this encounter Additional Health Concerns Assessment Noted Time PHQ-9 Depression Total Score: 1 08/11/19 21 6:30 PM CDT documented as of this encounter Care Teams Blockman Relationship Specialty Start Date End Date Guerrero Middleton PA-C PCP - General Physician General Maintenance Mechanic 02/13/18 documented as of this encounter
--- OUTSIDE RECORDS SUMMARY | 2024-05-03 20:38 | XMS_ITS | Encounter Summary ---
Author Organization [facility] Address [address] [place] [address] Care Team Providers Care Human Performance Technologist Name Role Phone Guerrero Middleton PA-C Primary Care Provide r Encounter Details Date Type Department Care Team (Latest Contact Info) Description 08/15/2021 9:30 AM CDT - 08/15/2021 11:59 PM CDT Hospital Encounter [facility] Donor Services [facility] [address] [place] [address] Phoenix Riddle MD [address] [facility] [place] [address] Discharge Disposition: Home or Self [...] Sign Reading Time Taken Comments Blood Pressure 123/77 08/15/2021 10:47 AM CDT Pulse 84 08/15/2021 10:47 AM CDT Temperature 36.7 ??C (98.1 ??F) 08/15/2021 10:47 AM C DT Respiratory Rate 18 08/15/2021 10:47 AM CDT Oxygen Saturation 100% 08/15/2021 10:47 AM CDT Inhaled Oxygen Concentration - - [...] tablet TAKE 1 TABLET BY MOUTH EVERY END FINDER FORMING DEPARTMENT 30 Tablet 06/01/2021 09/19/2023 Vascepa 1 gram [...] Progress Notes * Delroy Tristan RN - 08/15/2021 9:30 AM CDT Plasma exchange completed today using Right and left chest bard ports for draw and return. 1.0 volume, 100% fluid balance using 5% albumin as replacement fluid completed. 2 grams calcium gluconate given intra procedure. Patient tolerated procedure well. Next procedure scheduled for 08/17/2021. * Phoenix Riddle MD - 08/15/2021 9:30 AM CDT CC: ??45??yo female undergoing prophylaxis for??hypertriglyceridemic pancreatitis in the setting ofrecurrent necrotizing pancreatitis requires??plasma exchange. ?? Interval history:??Patient reports improvement in her symptoms following PLEX yesterday, with resolution of her nausea and reduction in her headache from 10/06 to 07/06. ?? Procedure note: 1.0 volume plasma exchange [...] postprocedures triglycerides 4,170 mg/dL 08/14/21 preprocedure triglycerides: >4425 mg/dL 08/14/21 postprocedure triglycerides: 3440 mg/dL 08/15/21 preprocedure triglycerides: >4425 mg/dL 08/15/21 postprocedure triglycerides: 1933 mg/dL ?? A&P: 1. 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 2. Continue maintenance PLEX with 1.0 volume exchange, 5% albumin replacement, 100% fluid volume, 2g calcium gluconate during procedure on a weekly basis, or more frequent based on symptoms and triglyceride levels. 3. Improvement of symptoms after PLEX, though have not resolved and triglycerides still elevated. 4. Plan for one additional procedure this week on 08/17/21. ?? I have??seen and examined the patient,??reviewed pertinent notes and records,??and remained immediately available throughout the procedure. ?? Phoenix Riddle MD Sewer Pipe Layer Helper, therapeutic apheresis service [phone] documented in this encounter Plan of Treatment Upcoming Encounters Date Type Department Care Team (Late st Contact Info) Description 09/14/2024 3:00 PM CDT Office Visit [facility] [address] [place] [address] Marlys Mayer MD [address] [place], [place] [id number] documented as of this encounter Procedures Procedure Name Priority Date/Time Associated Diagnosis Comments TRIGLYCERIDE Routine 08/15/2021 10:57 AM CDT Hypertriglyceridemia TRIGLYCERIDE Routine 08/15/2021 9:36 AM CDT Hypertriglyceridemia documented in this encounter Results * (ABNORMAL) TRIGLYCERIDE (08/15/2021 10:57 AM CDT) TRIGLYCERIDE 1,933(H) <150 mg/dL 08/15/2021 12:08 PM CDT [facility] Blood BLOOD SPECIMEN / Unknown Collection / Unknown 08/15/2021 10:57 AM CDT 08/15/2021 11:05 AM CDT Narrative [facility] - 08/15/2021 12:08 PM CDT TRIGLYCERIDES ? mg/dL Normal ?< 150 Borderline High ?150 - 199 High ? 200 - 499 Very High ? >= 500 Based on AHA/NCEP Guidelines. Phoenix Riddle MD CHEMISTRY ORDERABLE S [facility] CLIA# [id number] [address] [place] [address] * (ABNORMAL) TRIGLYCERIDE (08/15/2021 9:36 AM CDT) TRIGLYCERIDE >4,425(H) <150 mg/dL 08/15/2021 11:22 AM CDT [facility] Blood BLOOD SPECIMEN / Unknown Collection / Unknown 08/15/2021 9:36 AM CDT 08/15/2021 9:57 AM CDT Narrative [facility] - 08/15/2021 11:22 AM CDT TRIGLYCERIDES ? mg/dL Normal ?< 150 Borderline High ?150 - 199 High ? 200 - 499 Very High ? >= 500 Based on AHA/NCEP Guidelines. Phoenix Riddle MD [id number] [address] [place] [address] documented in this encounter Visit Diagnoses Diagnosis Hypertriglyceridemia- Primary Pure hyperglyceridemia documented in this encounter Administered Medications Inactive Administered Medications - up to 3 most recent administrations Medication Order MAR Action Action Date Dose Rate Site calcium GLUCONATE 2,000 mg in sodium chloride (iso-osmotic) 100 mL IVPB 2,000 mg, IV, INTRA-PROCEDURE ONCE, 1 dose, Starting on Sat08/15/21 at 0930, Until Sat08/15/21 at 1010, Routine New Bag 08/15/2021 9:10 AM CDT 2,000 mg 100 mL /hr heparin, porcine (pf) 10 unit/mL IV syringe 20 Units 20 Units, IV, ONE TIME ONLY, 1 dose, On Sat08/15/21 at 0930, Routine, Please tube to 516, thanks! Given 08/15/2021 10:29 AM CDT 20 Units heparin, porcine lock flush (pf) 100 unit/mL injection 500 Units 500 Units, IV, ONE TIME ONLY, 1 dose, On Sat08/15/21 at 0930, Routine, Please tube to 516, thanks! Given 08/15/2021 10:29 AM CDT 500 Units heparin, porcine lock flush (pf) 100 unit/mL injection 500 Units 500 Units, IV, ONE TIME ONLY, 1 dose, On Sat08/15/21 at 0930, Routine, Please tube to 516, thanks! Given 08/15/2021 10:28 AM CDT 500 Units sodium chloride flush injection 10 mL 10 mL, IV, ONE TIME ONLY, 1 dose, On Sat08/15/21 at 0930, Routine Given 08/15/2021 10:28 AM CDT 10 mL sodium chloride flush injection 10 mL 10 mL, IV, ONE TIME ONLY, 1 dose, On Sat08/15/21 at 0930, Routine Given 08/15/2021 10:29 AM CDT 10 mL sodium chloride flush injection 20 mL 20 mL, IV, ONE TIME ONLY, 1 dose, On Sat08/15/21 at 0930, Routine Given 08/15/2021 10:28 AM CDT 20 mL documented in this encounter Additional Health Concerns Assessment Noted Time PHQ-9 Depression Total Score: 1 08/11/19 21 6:30 PM CDT documented as of this encounter Care Teams Human Performance Technologist Relationship Specialty Start Date End Date Guerrero Middleton PA-C PCP - General Physician Superintendent Factory 02/13/18 documented as of this encounter
--- OUTSIDE RECORDS SUMMARY | 2024-05-03 20:38 | XMS_ITS | Encounter Summary ---
Author Organization [facility] Address [address] [place] [address] Care Team Providers Care Modern Greek Studies Professor Name Role Phone Guerrero Middleton PA-C Primary Care Provide r Encounter Details Date Type Department Care Team (Latest Contact Info) Description 08/21/2021 9:30 AM CDT - 08/21/2021 11:59 PM CDT Hospital Encounter [facility] Donor Services [facility] [address] [place] [address] Phoenix Riddle MD [address] [facility] Department [place] [address] Discharge Disposition: Home or Self [...] often do you attend chur ch or buddhism services? Never 08/21/2018 Do you [...] Sign Reading Time Taken Comments Blood Pressure 120/79 08/21/2021 10:21 AM CDT Pulse 83 08/21/2021 10:21 AM CDT Temperature 36.8 ??C (98.2 ??F) 08/21/2021 10:21 AM C DT Respiratory Rate 16 08/21/2021 10:21 AM CDT Oxygen Saturation - - Inhaled [...] tablet TAKE 1 TABLET BY MOUTH EVERY COMPLAINT ADJUSTER 30 Tablet 06/01/2021 09/19/2023 Vascepa 1 gram [...] as of this encounter Progress Notes * Puja Paz RN - 08/21/2021 9:30 AM CDT Plasma Exchange completed using R and L bard ports, 1.0 volume, 100% fluid balance using 5% albuminas replacement fluid. Pt tolerated the procedure well. Mext procedure scheduled for Saturday08/23/2021. * Phoenix Riddle MD - 08/21/2021 9:30 AM CDT CC: ??45??yo female undergoing prophylaxis for??hypertriglyceridemic pancreatitis in the setting ofrecurrent necrotizing pancreatitis requires??plasma exchange. ?? Interval history:??Patient reports feeling fatigued, but is otherwise at her baseline. Headache andnausea from last week have resolved. Abdominal pain was slightly wore on Saturday, at 5/10, but resolved to her baseline of 3/10 with rest. No continued allergic symptoms after allergic reaction last week, though patient reports taking Claritin for seasonal allergies. ?? Procedure note: 1.0 volume plasma exchange with 5% albumin replacement, 100% fluid balance, 2 g calcium gluconate during procedure. Procedure performed with albumin from the dental chairside assistant we had been using prior to her most recent PLEX, where she experienced itching and flushing.?Patient tolerated the procedure without evidence of allergic reaction. ?? PMH:??Familial hypertriglyceridemia (associated with prior episodes [...] postprocedure triglycerides: ??3440 mg/dL 08/15/21 preprocedure triglycerides: >4425 mg/dL 08/15/21 postprocedure triglycerides: 1933 mg/dL 08/17/21 triglycerides: >4425 mg/dL 08/21/21 preprocedure triglycerides: >4425 mg/dL 08/21/21 postprocedure triglycerides: 2782 mg/dL ?? A&P: 1. 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 2. Continue maintenance PLEX with 1.0 volume exchange, 5% albumin replacement, 100% fluid volume, 2g calcium gluconate during procedure on a weekly basis, or more frequent based on symptoms and triglyceride levels. 3. Triglycerides still markedly elevated, many of her symptoms from last week have resolved but some increase in fatigue. 4. Plan for one additional procedure this week on 08/23/21. ?? I have??seen and examined the patient,??reviewed pertinent notes and records,??and remained immediately available throughout the procedure. ?? Phoenix Riddle MD Doughnut Machine Operator Helper, therapeutic apheresis service [phone] documented in this encounter Plan of Treatment Upcoming Encounters Date Type Department Care Team (Late st Contact Info) Description 09/14/2024 3:00 PM CDT Office Visit [facility] Heart and Vascular - [facility] [address] [place] [address] Marlys Mayer MD [address] [place] [address] documented as of this encounter Procedures Procedure Name Priority Date/Time Associated Diagnosis Comments TRIGLYCERIDE Routine 08/21/2021 10:11 AM CDT Hypertriglyceridemia TRIGLYCERIDE Routine 08/21/2021 9:23 AM CDT Hypertriglyceridemia documented in this encounter Results * (ABNORMAL) TRIGLYCERIDE (08/21/2021 10:11 AM CDT) TRIGLYCERIDE 2,782(H) <150 mg/dL 08/21/2021 11:52 AM CDT [facility] Blood Venipuncture / Unknown 08/21/2021 10:11 AM CDT 08/21/2021 10:49 AM CDT Narrative [facility] - 08/21/2021 11:52 AM CDT TRIGLYCERIDES ? mg/dL Normal ?< 150 Borderline High ?150 - 199 High ? 200 - 499 Very High ? >= 500 Based on AHA/NCEP Guidelines. Phoenix Riddle MD CHEMISTRY ORDERABLE S Performing Organization Address [facility] de Phone Number [facility] [employer] [facility]# [id number] [address] [place] [address] * (ABNORMAL) TRIGLYCERIDE (08/21/2021 9:23 AM CDT) TRIGLYCERIDE >4,425(H) <150 mg/dL 08/21/2021 10:53 AM CDT [facility] [employer] [facility] Blood Venipuncture / Unknown 08/21/2021 9:23 AM CDT 08/21/2021 9:26 AM CDT Narrative [facility] [employer] [facility] - 08/21/2021 10:53 AM CDT TRIGLYCERIDES ? mg/dL Normal ?< 150 Borderline High ?150 - 199 High ? 200 - 499 Very High ? >= 500 Based on AHA/NCEP Guidelines. Phoenix Riddle MD [employer] ORDERABLE S Performing Organization Address [facility] de Phone Number [employer] [facility]# [id number] [address] [place] [address] documented in this encounter Visit Diagnoses Diagnosis Hypertriglyceridemia- Primary Pure hyperglyceridemia documented in this encounter Administered Medications Inactive Administered Medications - up to 3 most recent administrations Medication Order MAR Action Action Date Dose Rate Site calcium GLUCONATE 2,000 mg in sodium chloride (iso-osmotic) 100 mL IVPB 2,000 mg, IV, INTRA-PROCEDURE ONCE, 1 dose, Starting on Sat08/21/21 at 0930, Until Sat08/21/21 at 1022, Routine New Bag 08/21/2021 9:24 AM CDT 2,000 mg 50 mL/ hr heparin, porcine (pf) 10 unit/mL IV syringe 20 Units 20 Units, IV, ONE TIME ONLY, 1 dose, On Sat08/21/21 at 0930, Routine Given 08/21/2021 10:16 AM CDT 20 Units heparin, porcine lock flush (pf) 100 unit/mL injection 500 Units 500 Units, IV, ONE TIME ONLY, 1 dose, On Sat08/21/21 at 0930, Routine Given 08/21/2021 10:16 AM CDT 500 Units heparin, porcine lock flush (pf) 100 unit/mL injection 500 Units 500 Units, IV, ONE TIME ONLY, 1 dose, On Sat08/21/21 at 0930, Routine Given 08/21/2021 10:16 AM CDT 500 Units sodium chloride flush injection 10 mL 10 mL, IV, ONE TIME ONLY, 1 dose, On Sat08/21/21 at 0930, Routine Given 08/21/2021 10:16 AM CDT 10 mL sodium chloride flush injection 10 mL 10 mL, IV, ONE TIME ONLY, 1 dose, On Sat08/21/21 at 0930, Routine Given 08/21/2021 10:16 AM CDT 10 mL sodium chloride flush injection 20 mL 20 mL, IV, ONE TIME ONLY, 1 dose, On Sat08/21/21 at 0930, Routine Given 08/21/2021 10:15 AM CDT 20 mL documented in this encounter Additional Health Concerns Assessment Noted Time PHQ-9 Depression Total Score: 1 08/11/19 21 6:30 PM CDT documented as of this encounter Care Teams Modern Greek Studies Professor Relationship Specialty Start Date End Date Guerrero Middleton PA-C PCP - General Physician Ground Crew Lines Person 02/13/18 documented as of this encounter
--- OUTSIDE RECORDS SUMMARY | 2024-05-03 20:38 | XMS_ITS | Encounter Summary ---
Author Organization [facility] Address [address] Orozco: Epic Prelude ADT [place] [address] Care Team Providers Care Brass Sorter Name Role Phone Guerrero Middleton PA-C Primary Care Provide r Encounter Details Date Type Department Care Team (Latest Contact Info) Description 08/25/2021 Travel Social History Tobacco Use Types Packs/Day [...] do you attend [facility] health system or tenriism services? Never 08/21/2018 Do you belong to any clubs o r organizations such as lutheran groups, unions, fraternal or athletic groups, or [...] suspected to have Coronavirus/COVID-19? Unable to assess 08/25/2021 6:20 AM CDT documented as of this encounter Plan of Treatment Upcoming Encounters Date Type Department Care Team (Late st Contact Info) Description 09/14/2024 3:00 PM CDT Office Visit [facility] [address] [place] [address] Marlys Mayer MD [address] [place] [address] documented as of this encounter Visit Diagnoses Not on filedocumented in this encounter Care Teams Brass Sorter Relationship Specialty Start Date End Date Guerrero Middleton PA-C PCP - General Physician Accident Report Clerk 02/13/18 documented as of this encounter
--- OUTSIDE RECORDS SUMMARY | 2024-05-03 20:38 | XMS_ITS | Encounter Summary ---
Author Organization [facility] Address [address] [place] [address] Care Team Providers Care Operations Coordinator Name Role Phone Guerrero Middleton PA-C Primary Care Provide r Encounter Details Date Type Department Care Team (Latest Contact Info) Description 08/14/2021 9:30 AM CDT - 08/14/2021 11:59 PM CDT Hospital Encounter [facility] Donor Services [facility] [address] [place] [phone] Marlys Mayer MD [address] [place], [place] [phone] Discharge Disposition: Home or Self Care Social [...] often do you attend chur ch or temple services? Never 08/21/2018 Do you belong to any clubs o r organizations such as christian groups, unions, fraternal or athletic groups, or [...] suspected to have Coronavirus/COVID-19? No / Unsure 08/14/2021 8:52 AM CDT documented as of this encounter Last Filed Vital Signs Vital Sign Reading Time Taken Comments Blood Pressure 121/80 08/14/2021 10:28 AM CDT Pulse 85 08/14/2021 10:28 AM CDT Temperature 37.1 ??C (98.8 ??F) 08/14/2021 10:28 AM C DT Respiratory Rate 16 08/14/2021 10:28 AM CDT Oxygen Saturation - - Inhaled [...] tablet TAKE 1 TABLET BY MOUTH EVERY CONTENT WRITER 30 Tablet 06/01/2021 09/19/2023 Vascepa 1 gram [...] Progress Notes * Puja Paz RN - 08/14/2021 9:30 AM CDT Plasma Exchange completed using R/L and bard ports. 1.0 volume, 100% fluid balance using 5% Albuminas replacement fluid. Pt tolerated the procedure well. Next procedure scheduled for tomorrow 08/15/2021 * Phoenix Riddle MD - 08/14/2021 9:30 AM CDT CC: ??45??yo female undergoing prophylaxis for??hypertriglyceridemic pancreatitis in the setting ofrecurrent necrotizing pancreatitis requires??plasma exchange. ?? Interval history:??Patient reports worsening headaches, fatigue, facial puffiness, and nausea sinceher most recent procedure, with some minimal abdominal pain. ?? Procedure note: 1.0 volume plasma exchange [...] >4425 mg/dL 08/14/21 postprocedure triglycerides: 3440 mg/dL ?? A&P: 1. 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 2. Continue maintenance PLEX with 1.0 volume exchange, 5% albumin replacement, 100% fluid volume, 2g calcium gluconate during procedure on a weekly basis, or more frequent based on symptoms and triglyceride levels. 3. Continued marked elevation in triglycerides, currently symptomatic. Will perform at least one additional procedure tomorrow and evaluate response in lab values and symptoms to determine need for additional procedures this week. 4. Next procedure scheduled for 08/15/2021. ?? I have??seen and examined the patient,??reviewed pertinent notes and records,??and remained immediately available throughout the procedure. ?? Phoenix Riddle MD Macroeconomics Professor, therapeutic apheresis service [phone] documented in this encounter Plan of Treatment Upcoming Encounters Date Type Department Care Team (Late st Contact Info) Description 09/14/2024 3:00 PM CDT Office Visit [facility] Heart and Vascular - [place] [address] [place] [address] Marlys Mayer MD [address] [place] [address] documented as of this encounter Procedures Procedure Name Priority Date/Time Associated Diagnosis Comments TRIGLYCERIDE Routine 08/14/2021 10:22 AM CDT Hypertriglyceridemia TRIGLYCERIDE Routine 08/14/2021 9:24 AM CDT Hypertriglyceridemia documented in this encounter Results * (ABNORMAL) TRIGLYCERIDE (08/14/2021 10:22 AM CDT) TRIGLYCERIDE 3,440(H) <150 mg/dL 08/14/2021 11:26 AM CDT [facility] Blood Venipuncture / Unknown 08/14/2021 10:22 AM CDT 08/14/2021 10:38 AM CDT Narrative [facility] - 08/14/2021 11:26 AM CDT TRIGLYCERIDES ? mg/dL Normal ?< 150 Borderline High ?150 - 199 High ? 200 - 499 Very High ? >= 500 Based on AHA/NCEP Guidelines. Phoenix Riddle MD CHEMISTRY ORDERABLE S [facility] [id number] [address] [id number] * (ABNORMAL) TRIGLYCERIDE (08/14/2021 9:24 AM CDT) TRIGLYCERIDE >4,425(H) <150 mg/dL 08/14/2021 10:22 AM CDT [facility] Blood Venipuncture / Unknown 08/14/2021 9:24 AM CDT 08/14/2021 9:26 AM CDT Narrative [facility] - 08/14/2021 10:22 AM CDT TRIGLYCERIDES ? mg/dL Normal ?< 150 Borderline High ?150 - 199 High ? 200 - 499 Very High ? >= 500 Based on AHA/NCEP Guidelines. Nicole Rosas MD CHEMISTRY YONI SERRANO [facility]# [id number] [address] [place] [address] documented in this encounter Visit Diagnoses Diagnosis Hypertriglyceridemia- Primary Pure hyperglyceridemia documented in this encounter Administered Medications Inactive Administered Medications - up to 3 most recent administrations Medication Order MAR Action Action Date Dose Rate Site calcium GLUCONATE 2,000 mg in sodium chloride (iso-osmotic) 100 mL IVPB 2,000 mg, IV, INTRA-PROCEDURE ONCE, 1 dose, Starting on Sat08/14/21 at 0930, Until Sat08/14/21 at 1028, Routine New Bag 08/14/2021 9:28 AM CDT 2,000 mg 100 mL /hr heparin, porcine (pf) 10 unit/mL IV syringe 20 Units 20 Units, IV, ONE TIME ONLY, 1 dose, On Sat08/14/21 at 0930, Routine Given 08/14/2021 10:20 AM CDT 20 Units heparin, porcine lock flush (pf) 100 unit/mL injection 500 Units 500 Units, IV, ONE TIME ONLY, 1 dose, On Sat08/14/21 at 0930, Routine Given 08/14/2021 10:21 AM CDT 500 Units heparin, porcine lock flush (pf) 100 unit/mL injection 500 Units 500 Units, IV, ONE TIME ONLY, 1 dose, On Sat08/14/21 at 0930, Routine Given 08/14/2021 10:20 AM CDT 500 Units sodium chloride flush injection 10 mL 10 mL, IV, ONE TIME ONLY, 1 dose, On Sat08/14/21 at 0930, Routine Given 08/14/2021 10:20 AM CDT 10 mL sodium chloride flush injection 10 mL 10 mL, IV, ONE TIME ONLY, 1 dose, On Sat08/14/21 at 0930, Routine Given 08/14/2021 10:21 AM CDT 10 mL sodium chloride flush injection 20 mL 20 mL, IV, ONE TIME ONLY, 1 dose, On Sat08/14/21 at 0930, Routine Given 08/14/2021 10:20 AM CDT 20 mL documented in this encounter Additional Health Concerns Assessment Noted Time PHQ-9 Depression Total Score: 1 08/11/19 21 6:30 PM CDT documented as of this encounter Care Teams Operations Coordinator Relationship Specialty Start Date End Date Guerrero Middleton PA-C PCP - General Physician Mortgage Loan Processing Clerk 02/13/18 documented as of this encounter
--- OUTSIDE RECORDS SUMMARY | 2024-05-03 20:38 | XMS_ITS | Encounter Summary ---
Author Organization [facility] Address [address] Orozco: Epic Prelude ADT [place] [address] Care Team Providers Care Maintenance Worker Name Role Phone Guerrero Middleton PA-C Primary Care Provide r Encounter Details Date Type Department Care Team (Latest Contact Info) Description 08/23/2021 Travel Social History Tobacco Use Types Packs/Day [...] week 08/21/2018 How often do you attend [facility] or gnosticism services? Never 08/21/2018 Do you belong to any clubs o r organizations such as sabianism groups, unions, fraternal or athletic groups, or [...] [facility] [address] [place] [address] Marlys Mayer MD [address] [place], [place] [id number] documented as of this encounter Visit Diagnoses Not on filedocumented in this encounter Additional Health Concerns Assessment Noted Time PHQ-9 Depression Total Score: 1 08/11/19 21 6:30 PM CDT documented as of this encounter Care Teams Maintenance Worker Relationship Specialty Start Date End Date Guerrero Middleton PA-C PCP - General Physician In[employer]atic[employer] Mdm Developer 02/13/18 documented as of this encounter
--- OUTSIDE RECORDS SUMMARY | 2024-05-03 20:38 | XMS_ITS | Encounter Summary ---
Author Organization [facility] Address [address] Orozco: Epic Prelude ADT [place] [address] Care Team Providers Care Paratransit Operator Name Role Phone Guerrero Middleton PA-C Primary Care Provide r Encounter Details Date Type Department Care Team (Latest Contact Info) Description 06/14/2021 Travel Social History Tobacco Use Types Packs/Day [...] week 08/21/2018 How often do you attend [facility] or moravian services? Never 08/21/2018 Do you belong to any clubs o r organizations such as denominational groups, unions, fraternal or athletic groups, or [...] have Coronavirus / COVID-19? No / Unsure 06/14/2021 9:19 AM PROJECT ACCOUNT MANAGER documented as of this encounter Plan of Treatment Upcoming Encounters Date Type Department Care Team (Late st Contact Info) Description 09/14/2024 3:00 PM CDT Office Visit [facility] - [facility] [address] [place] [address] Marlys Mayer MD [address] [place], [place] [id number] documented as of this encounter Visit Diagnoses Not on filedocumented in this encounter Additional Health Concerns Assessment Noted Time PHQ-9 Depression Total Score: 1 08/11/19 21 6:30 PM CDT documented as of this encounter Care Teams Paratransit Operator Relationship Specialty Start Date End Date Guerrero Middleton PA-C PCP - General Physician Ac/Dc Rewinder 02/13/18 documented as of this encounter
--- OUTSIDE RECORDS SUMMARY | 2024-05-03 20:38 | XMS_ITS | Encounter Summary ---
Author Organization [facility] Address [address] [place] [address] Care Team Providers Care Obstetrician And Gynaecologist Name Role Phone Guerrero Middleton PA-C Primary Care Provide r Reason for Visit * Auth/Cert Specialty Diagnoses / Procedures Referred By Tequila t Referred To Contact [facility] [address] [place] [address] Referral ID Status Reason Start Date Expiration Date Visits Re quested Visits Authorized [id number] 1 1 Encounter Details Date Type Department Care Team (Latest Contact Info) Description 08/24/2021 9:18 AM CDT - 08/24/2021 11:59 PM CDT Hospital Encounter [facility] Donor Services [facility] [address] [place] [address] Marlys Mayer MD [address] [place], [place] [phone] Phoenix Riddle MD [address] [place] [address] Discharge Disposition: Home or Self [...] any clubs o r organizations such as mormonism groups, unions, fraternal or athletic groups, or [...] Sign Reading Time Taken Comments Blood Pressure 114/73 08/24/2021 9:14 AM CDT Pulse 100 08/24/2021 9:14 AM CDT Temperature 36.8 ??C (98.2 ??F) 08/24/2021 9:14 AM CD T Respiratory Rate 16 08/24/2021 9:14 AM CDT Oxygen Saturation - - Inhaled [...] tablet TAKE 1 TABLET BY MOUTH EVERY SITE SUPERVISOR 30 Tablet 06/01/2021 09/19/2023 Vascepa 1 gram [...] Progress Notes * Sharri Juarez, RN - 08/24/2021 9:30 AM CDT Plasma exchange attempted today using BARD ports. Procedure aborted at 4 minutes due to patient complaining of chest pain and L arm pain. Patient also appeared SOA. VSS. Dr. Mondragon at bedside and METteam called. BARD ports deaccessed. MET team escorted patient to ED. * Nicole Mondragon MD - 08/24/2021 9:30 AM CDT Called by Cathy Ken RN, to donor services due to change in patient status. Ms. Jones drove herself to [facility] today for scheduled PLEX. She has been experiencing increasing abdominal pain and her last two PLEX were uneventful (08/21 and 08/23). BARD ports accessed and procedure aborted at 4 minutesdue to complaints of chest pain and left arm pain. Ms. Jones appeared uncomfortable, with halting speech. Vital signs stable. MET team called. BARD ports deaccessed and patient brought to ED by MET team. I discussed Ms. Jones's transport to the ED with her José Miguel via telephone. documented in this encounter Plan of Treatment Upcoming Encounters Date Type Department Care Team (Late st Contact Info) Description 09/14/2024 3:00 PM CDT Office Visit [facility] Heart and Vascular - [facility] [address] [place] [address] Marlys Mayer MD [address] [place] [address] documented as of this encounter Procedures Procedure Name Priority Date/Time Associated Diagnosis Comments TRIGLYCERIDE Routine 08/24/2021 9:46 AM CDT Hypertriglyceridemia documented in this encounter Results * (ABNORMAL) TRIGLYCERIDE (08/24/2021 9:46 AM CDT) TRIGLYCERIDE 4,244(H) <150 mg/dL 08/24/2021 10:45 AM CDT [facility] Blood Collection / Unknown 08/24/2021 9:46 AM CDT 08/24/2021 9:49 AM CDT Narrative [facility] - 08/24/2021 10:45 AM CDT TRIGLYCERIDES ? mg/dL Normal ?< 150 Borderline High ?150 - 199 High ? 200 - 499 Very High ? >= 500 Based on AHA/NCEP Guidelines. Phoenix Riddle MD CHEMISTRY ORDERABLE S Performing Organization Address [facility]/ZIP Co de Phone Number [facility]# [id number] [address] [facility] [place] [address] documented in this encounter Visit Diagnoses Diagnosis Hypertriglyceridemia- Primary Pure hyperglyceridemia documented in this encounter Administered Medications Inactive Administered Medications - up to 3 most recent administrations Medication Order MAR Action Action Date Dose Rate Site calcium GLUCONATE 2,000 mg in sodium chloride (iso-osmotic) 100 mL IVPB 2,000 mg, IV, ONE TIME ONLY, 1 dose, On Katie 08/24/21 at 0830, Routine New Bag 08/24/2021 9:54 AM CDT 2,000 mg 50 mL/ hr heparin, porcine lock flush (pf) 100 unit/mL injection 500 Units 500 Units, IV, ONE TIME ONLY, 1 dose, On Katie 08/24/21 at 0830, Routine Given 08/24/2021 10:41 AM CDT 500 Units heparin, porcine lock flush (pf) 100 unit/mL injection 500 Units 500 Units, IV, ONE TIME ONLY, 1 dose, On Katie 08/24/21 at 0830, Routine Given 08/24/2021 10:39 AM CDT 500 Units sodium chloride flush injection 10 mL 10 mL, IV, ONE TIME ONLY, 1 dose, On Katie 08/24/21 at 0830, Routine Given 08/24/2021 10:41 AM CDT 10 mL sodium chloride flush injection 10 mL 10 mL, IV, ONE TIME ONLY, 1 dose, On Katie 08/24/21 at 0830, Routine Given 08/24/2021 10:40 AM CDT 10 mL sodium chloride flush injection 20 mL 20 mL, IV, ONE TIME ONLY, 1 dose, On Katie 08/24/21 at 0830, Routine Given 08/24/2021 10:36 AM CDT 20 mL documented in this encounter Care Teams Obstetrician And Gynaecologist Relationship Specialty Start Date End Date Guerrero Middleton PA-C PCP - General Physician Ornament Maker Hand 02/13/18 documented as of this encounter
--- OUTSIDE RECORDS SUMMARY | 2024-05-03 20:38 | XMS_ITS | Encounter Summary ---
Author Organization [facility] Address [address] [place] [address] Care Team Providers Care Comic Illustrator Name Role Phone Guerrero Middleton PA-C Primary Care Provide r Reason for Visit * Auth/Cert Specialty Diagnoses / Procedures Referred By Conthardik t Referred To Contact Laboratory [facility] [address] [place] [address] Referral ID Status Reason Start Date Expiration Date Visits Re quested Visits Authorized [id number] 1 1 Encounter Details Date Type Department Care Team (Latest Contact Info) Description 08/17/2021 9:16 AM CDT - 08/17/2021 11:59 PM CDT Hospital Encounter [facility] [address] [place] [address] Marlys Mayer MD [address] [place] [address] Discharge Disposition: Home or Self [...] often do you attend chur ch or christian services? Never 08/21/2018 Do you belong to any clubs o r organizations such as nondenominational groups, unions, fraternal or athletic groups, or [...] Sign Reading Time Taken Comments Blood Pressure 127/78 08/17/2021 11:10 AM CDT Pulse 90 08/17/2021 11:10 AM CDT Temperature 37 ??C (98.6 ??F) 08/17/2021 11:10 AM CDT Respiratory Rate 16 08/17/2021 11:10 AM CDT Oxygen Saturation 98% 08/17/2021 11:10 AM CDT Inhaled Oxygen Concentration - - [...] tablet TAKE 1 TABLET BY MOUTH EVERY MRB ENGINEER 30 Tablet 06/01/2021 09/19/2023 Vascepa 1 gram [...] as of this encounter Progress Notes * Nicole Mondragon MD - 08/17/2021 11:00 AM CDT CC: ??45??yo female undergoing prophylaxis for??hypertriglyceridemic pancreatitis in the setting ofrecurrent necrotizing pancreatitis requires??plasma exchange. ?? Interval history:??Patient reports she is feeling ok today; perhaps fatigued from condition / repeat PLEX. ?? Procedure note: 1.0 volume plasma exchange with 5% albumin replacement, 100% fluid balance, 2 g calcium gluconate during procedure.??Patient reported a sensation of flushing at initiation of procedure and itching within 20 minutes. Procedure halted and 25 mg Benadryl administered IV. Itching ceasedwithin 10 minutes and procedure resumed. Patient reported itching again and procedure aborted with gradual decrease in itching sensation. Vital signs stable throughout, no respiratory complaints, andno hives observed. Patient left in stable condition. ?? PMH:??Familial hypertriglyceridemia (associated with prior episodes [...] mg/dL 08/15/21 postprocedure triglycerides: 1933 mg/dL 08/17/21 preprocedure triglycerides: >4,425 mg/dL ?? A&P: 1. 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 2. Continue maintenance PLEX with 1.0 volume exchange, 5% albumin replacement, 100% fluid volume, 2g calcium gluconate during procedure on a weekly basis, or more frequent based on symptoms and triglyceride levels. 3. Discussed reaction with pharmacist. Only change in procedure was use of 5% albumin from a different white lead grinder ([employer]) and this is the presumptive culprit of a mild allergic reaction. Per pharmacist, the albumin used for all prior procedures (white lead grinder: Grifols) is available from the pharmacy. 4. Plan for next procedure early in week of 08/21/21 with Grifols 5% albumin as replacement fluid. Plan discussed with Ms. Jones and she is in agreement. ?? I have??seen and examined the patient,??reviewed pertinent notes and records,??and remained immediately available throughout the procedure. ?? Nicole Mondragon MD Hands Assembler, therapeutic apheresis service [phone] * Delroy Tristan RN - 08/17/2021 9:30 AM CDT Plasma exchange today using Right and left chest bard ports for draw and return. 25mg IV benadryl given due to pt complaint of itching, procedure continued, pt did not present with a rash and vitals stable. Dr. Mondragon at bedside. 0.4 plasma volume exchange accomplished due to pt complaint of itching, procedure ended per Dr. Mondragon. Next procedure scheduled for 08/21/2021 * Delroy Tristan RN - 08/17/2021 9:30 AM CDT It can be assumed that pt reaction to procedure is due to new brand of 5% albumin, from the company[employer]. Per Dr. Mondragon, request Grifols 5% albumin from pharmacy for future procedures. documented in this encounter Plan of Treatment Upcoming Encounters Date Type Department Care Team (Late st Contact Info) Description 09/14/2024 3:00 PM CDT Office Visit [facility] Heart and Vascular - [place] [address] [place] [address] Marlys Mayer MD [address] [place] [address] documented as of this encounter Procedures Procedure Name Priority Date/Time Associated Diagnosis Comments TRIGLYCERIDE Routine 08/17/2021 9:57 AM CDT Hypertriglyceridemia documented in this encounter Results * (ABNORMAL) TRIGLYCERIDE (08/17/2021 9:57 AM CDT) TRIGLYCERIDE >4,425(H) <150 mg/dL 08/17/2021 12:04 PM CDT [facility] [employer] [facility] Blood BLOOD SPECIMEN / Unknown Collection / Unknown 08/17/2021 9:57 AM CDT 08/17/2021 9:59 AM CDT Narrative [facility] [employer] [facility] - 08/17/2021 12:04 PM CDT TRIGLYCERIDES ? mg/dL Normal ?< 150 Borderline High ?150 - 199 High ? 200 - 499 Very High ? >= 500 Based on AHA/NCEP Guidelines. Phoenix Riddle MD CHEMISTRY ORDERABLE S [facility] [employer] [facility]# [id number] [address] [place] [id number] documented in this encounter Visit Diagnoses Diagnosis Hypertriglyceridemia- Primary Pure hyperglyceridemia documented in this encounter Administered Medications Inactive Administered Medications - up to 3 most recent administrations Medication Order MAR Action Action Date Dose Rate Site calcium GLUCONATE 2,000 mg in sodium chloride (iso-osmotic) 100 mL IVPB 2,000 mg, IV, ONE TIME ONLY, 1 dose, On Katie 08/17/21 at 0930, Routine New Bag 08/17/2021 10:01 AM CDT 2,000 mg 100 mL/hr diphenhydrAMINE (BENADRYL) injection 25 mg 25 mg, IV, INTRA-PROCEDURE ONCE, 1 dose, Starting on Katie 08/17/21 at 1010, Until Katie 08/17/21 at 1015, Routine Given 08/17/2021 10:15 AM CDT 25 mg heparin, porcine (pf) 10 unit/mL IV syringe 20 Units 20 Units, IV, ONE TIME ONLY, 1 dose, On Katie 08/17/21 at 0930, Routine, Tube to 516 Given 08/17/2021 11:15 AM CDT 20 Units heparin, porcine lock flush (pf) 100 unit/mL injection 500 Units 500 Units, IV, ONE TIME ONLY, 1 dose, On Katie 08/17/21 at 0930, Routine, Tube to 516 Given 08/17/2021 11:15 AM CDT 500 Units heparin, porcine lock flush (pf) 100 unit/mL injection 500 Units 500 Units, IV, ONE TIME ONLY, 1 dose, On Katie 08/17/21 at 0930, Routine, Tube to 516 Given 08/17/2021 11:13 AM CDT 500 Units sodium chloride flush injection 10 mL 10 mL, IV, ONE TIME ONLY, 1 dose, On Katie 08/17/21 at 0930, Routine Given 08/17/2021 11:14 AM CDT 10 mL sodium chloride flush injection 10 mL 10 mL, IV, ONE TIME ONLY, 1 dose, On Katie 08/17/21 at 0930, Routine Given 08/17/2021 11:15 AM CDT 10 mL sodium chloride flush injection 20 mL 20 mL, IV, ONE TIME ONLY, 1 dose, On Kaite 08/17/21 at 0930, Routine Given 08/17/2021 11:13 AM CDT 20 mL documented in this encounter Additional Health Concerns Assessment Noted Time PHQ-9 Depression Total Score: 1 08/11/19 21 6:30 PM CDT documented as of this encounter Care Teams Comic Illustrator Relationship Specialty Start Date End Date Guerrero Middleton PA-C PCP - General Physician Wire Machine Operator 02/13/18 documented as of this encounter
--- OUTSIDE RECORDS SUMMARY | 2024-05-03 20:38 | XMS_ITS | Encounter Summary ---
Author Organization [facility] Address [address] Orozco: Epic Prelude ADT [place] [address] Care Team Providers Care Pourer Name Role Phone Guerrero Middleton PA-C Primary Care Provide r Encounter Details Date Type Department Care Team (Latest Contact Info) Description 08/14/2021 Travel Social History Tobacco Use Types Packs/Day [...] 08/21/2018 How often do you attend [facility] or muslim services? Never 08/21/2018 Do you [...] Description 09/14/2024 3:00 PM CDT Office Visit [facility] [address] [place] [address] Marlys Mayer MD [address] [place], [place] [phone] documented as of this encounter Visit Diagnoses Not on filedocumented in this encounter Additional Health Concerns Assessment Noted Time PHQ-9 Depression Total Score: 1 08/11/19 21 6:30 PM CDT documented as of this encounter Care Teams Pourer Relationship Specialty Start Date End Date Guerrero Middleton PA-C PCP - General Physician Marine Electrician 02/13/18 documented as of this encounter
--- OUTSIDE RECORDS SUMMARY | 2024-05-03 20:38 | XMS_ITS | Encounter Summary ---
Author Organization [facility] Address [address] [place] [address] Care Team Providers Care Dining Car Steward Name Role Phone Guerrero Middleton PA-C Primary Care Provide r Encounter Details Date Type Department Care Team (Latest Contact Info) Description 07/20/2021 9:17 AM CDT - 07/20/2021 11:59 PM CDT Hospital Encounter [facility] Donor Services [facility] [address] [place] [address] Phoenix Riddle MD [address] [place] [address] Discharge Disposition: Home or Self [...] Sign Reading Time Taken Comments Blood Pressure 115/74 07/20/2021 11:25 AM CDT Pulse 80 07/20/2021 11:25 AM CDT Temperature 36.5 ??C (97.7 ??F) 07/20/2021 11:25 AM C DT Respiratory Rate 17 07/20/2021 11:25 AM CDT Oxygen Saturation 99% 07/20/2021 11:25 AM CDT Inhaled Oxygen Concentration - - [...] tablet TAKE 1 TABLET BY MOUTH EVERY PHLEBOTOMIST ASSOCIATE 30 Tablet 06/01/2021 09/19/2023 Vascepa 1 gram [...] of this encounter Progress Notes * Sharri Juarez RN - 07/20/2021 9:30 AM CDT Plasma exchange completed today using R and L chest BARD ports. Used 5% Albumin as replacement fluid for a 1.0 volume exchange with a 100% fluid balance. Patient tolerated the procedure well. She left [facility]DS department ambulatory and in stable condition. The next procedure is scheduled for Saturday07/25/2021. * Phoenix Riddle MD - 07/20/2021 9:30 AM CDT CC: ??45??yo female undergoing prophylaxis for??hypertriglyceridemic pancreatitis in the setting ofrecurrent necrotizing pancreatitis requires??plasma exchange. ?? Interval history:??Patient has missed her last several appointments due to reported scheduling difficulties. She has begun feeling worse, with malaise, aching, and abdominal pain. ?? Procedure note: 1.0 volume [...] mg/dL 06/07/21 postproedeure triglycerides:?518??mg/dL 06/14/21 preprocedure triglycerides: >4425 mg/dL 06/14/21 postprocedure triglycerides: 2324 mg/dL?? 07/20/21 preprocedure triglycerides: >4425 mg/dL 07/20/21 postprocedure triglycerides: 3042 mg/dL ?? A&P: 1. 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 2. Continue maintenance PLEX with 1.0 volume exchange, 5% albumin replacement, 100% fluid volume, 2g calcium gluconate during procedure on a weekly basis, or more frequent based on symptoms and triglyceride levels. 3. Next procedure??scheduled 07/25/21. ?? I have??seen and examined the patient,??reviewed pertinent notes and records,??and remained immediately available throughout the procedure. ?? Phoenix Riddle MD Java Development Team Lead, therapeutic apheresis service [phone] documented in this encounter Plan of Treatment Upcoming Encounters Date Type Department Care Team (Late st Contact Info) Description 09/14/2024 3:00 PM CDT Office Visit [facility] [address] [place] [address] Marlys Mayer MD [address] [place] [address] documented as of this encounter Procedures Procedure Name Priority Date/Time Associated Diagnosis Comments TRIGLYCERIDE Routine 07/20/2021 11:06 AM CDT Hypertriglyceridemia TRIGLYCERIDE Routine 07/20/2021 9:48 AM CDT Hypertriglyceridemia documented in this encounter Results * (ABNORMAL) TRIGLYCERIDE (07/20/2021 11:06 AM CDT) TRIGLYCERIDE 3,042(H) <150 mg/dL 07/20/2021 12:28 PM CDT [facility] [employer] [facility] Blood Collection / Unknown 07/20/2021 11:06 AM CDT 07/20/2021 11:38 AM CDT [facility] [place] [facility] - 07/20/2021 12:28 PM CDT TRIGLYCERIDES ? mg/dL Normal ?< 150 Borderline High ?150 - 199 High ? 200 - 499 Very High ? >= 500 Based on AHA/NCEP Guidelines. Phoenix Riddle MD CHEMISTRY ORDERABLE S [facility] [employer] [facility]# [id number] [address] [facility] [place] [id number] * (ABNORMAL) TRIGLYCERIDE (07/20/2021 9:48 AM CDT) TRIGLYCERIDE >4,425(H) <150 mg/dL 07/20/2021 11:17 AM CDT [facility] [place] [facility] Blood Collection / Unknown 07/20/2021 9:48 AM CDT 07/20/2021 9:50 AM CDT [facility] - 07/20/2021 11:17 AM CDT TRIGLYCERIDES ? mg/dL Normal ?< 150 Borderline High ?150 - 199 High ? 200 - 499 Very High ? >= 500 Based on AHA/NCEP Guidelines. Phoenix Riddle MD CHEMISTRY ORDERABLE S [facility]# [id number] [address] [place] [address] documented in this encounter Visit Diagnoses Diagnosis Hypertriglyceridemia- Primary Pure hyperglyceridemia documented in this encounter Administered Medications Inactive Administered Medications - up to 3 most recent administrations Medication Order MAR Action Action Date Dose Rate Site calcium GLUCONATE 2,000 mg in sodium chloride (iso-osmotic) 100 mL IVPB 2,000 mg, IV, INTRA-PROCEDURE ONCE, 1 dose, Starting on Katie 07/20/21 at 0930, Until Katie 07/20/21 at 1112, Routine New Bag 07/20/2021 10:00 AM CDT 2,000 mg 100 mL/hr heparin, porcine (pf) 10 unit/mL IV syringe 20 Units 20 Units, IV, ONE TIME ONLY, 1 dose, On Katie 07/20/21 at 0930, Routine, Please tube to 516, thanks! Given 07/20/2021 11:11 AM CDT 20 Units heparin, porcine lock flush (pf) 100 unit/mL injection 500 Units 500 Units, IV, ONE TIME ONLY, 1 dose, On Katie 07/20/21 at 0930, Routine, Please tube to 516, thanks! Given 07/20/2021 11:13 AM CDT 500 Units heparin, porcine lock flush (pf) 100 unit/mL injection 500 Units 500 Units, IV, ONE TIME ONLY, 1 dose, On Katie 07/20/21 at 0930, Routine, Please tube to 516, thanks! Given 07/20/2021 11:12 AM CDT 500 Units sodium chloride flush injection 10 mL 10 mL, IV, ONE TIME ONLY, 1 dose, On Katie 3/24/22 at 0930, Routine Given 07/20/2021 11:11 AM CDT 10 mL sodium chloride flush injection 10 mL 10 mL, IV, ONE TIME ONLY, 1 dose, On Katie 07/20/21 at 0930, Routine Given 07/20/2021 11:12 AM CDT 10 mL sodium chloride flush injection 20 mL 20 mL, IV, ONE TIME ONLY, 1 dose, On Katie 07/20/21 at 0930, Routine Given 07/20/2021 11:12 AM CDT 20 mL documented in this encounter Additional Health Concerns Assessment Noted Time PHQ-9 Depression Total Score: 1 08/11/19 21 6:30 PM CDT documented as of this encounter Care Teams Dining Car Steward Relationship Specialty Start Date End Date Guerrero Middleton PA-C PCP - General Physician Deckhand Tuna Boat 02/13/18 documented as of this encounter
--- OUTSIDE RECORDS SUMMARY | 2024-05-03 20:38 | XMS_ITS | Encounter Summary ---
Author Organization [facility] Address [address] [place] [address] Care Team Providers Care Service Developer Name Role Phone Guerrero Middleton PA-C Primary Care Provide r Encounter Details Date Type Department Care Team (Latest Contact Info) Description 06/07/2021 9:16 AM SEARCHLIGHT OPERATOR - 06/07/2021 11:59 PM [facility] Hospital Encounter [facility] Donor Services [facility] [address] [place] [address] Phoenix Riddle MD [address] [facility] [place] [address] Discharge Disposition: Home or Self [...] often do you attend chur ch or zoroastrianism services? Never 08/21/2018 Do you belong to any clubs o r organizations such as mu-ism groups, unions, fraternal or athletic groups, or [...] COVID-19? No / Unsure 06/07/2021 8:59 AM SEARCHLIGHT OPERATOR documented as of this encounter Last Filed Vital Signs Vital Sign Reading Time Taken Comments Blood Pressure 115/87 06/07/2021 11:07 AM SEARCHLIGHT OPERATOR Pulse 95 06/07/2021 11:07 AM SEARCHLIGHT OPERATOR Temperature 36.8 ??C (98.2 ??F) 06/07/2021 11:[address] Respiratory Rate 18 06/07/2021 11:07 AM SEARCHLIGHT OPERATOR Oxygen Saturation 100% 06/07/2021 11:07 AM SEARCHLIGHT OPERATOR Inhaled Oxygen Concentration - - Weight - [...] tablet TAKE 1 TABLET BY MOUTH EVERY BUSPERSON 30 Tablet 06/01/2021 09/19/2023 Vascepa 1 gram [...] Progress Notes * Phoenix Riddle MD - 06/07/2021 11:00 AM CST CC: 45 yo female undergoing prophylaxis for hypertriglyceridemic pancreatitis in the setting of recurrent necrotizing pancreatitis requires plasma exchange. Interval history: Patient missed her appointment last week due to snow, though she states she has been feeling well and is without complaint. Procedure note: 1.0 volume plasma exchange with 5% albumin replacement, 100% fluid balance, 2 g calcium gluconate during procedure. Patient tolerated the procedure without complaints or adverse events. PMH: Familial hypertriglyceridemia (associated with prior episodes of pancreatitis, on outpatient maintenance PLEX with indwelling port). DM, anxiety, GERG, HLD, hypothyroidism, PCOS Exam: General Appearance: - Well nourished, no acute distress Skin: - R and L chest port sites unremarkable Respiratory: - Unlabored breathing Neuro: - Alert and Oriented Labs: 05/05/21 WBC 9.3 hgb 13.6 hct 37.2 PLT 222 05/05/21 preprocedure triglycerides: >4425 mg/dL 05/05/21 postprocedure triglycerides: 2667 mg/dL 05/25/21 preprocedure triglycerides: not resulted; unable to evaluate due to lipidemia 05/25/21 postprocedure triglycerides: 3,973 mg/dL 06/07/21 preprocedure triglycerides: 1377 mg/dL 06/07/21 postproedeure triglycerides: 518 mg/dL A&P: 1. 45 yo female with recurrent hypertriglyceridemic pancreatitis requiring therapeutic plasma exchange (ASFA category III indication). 2. Continue maintenance PLEX with 1.0 volume exchange, 5% albumin replacement, 100% fluid volume, 2g calcium gluconate during procedure on a weekly basis, or more frequent based on symptoms and triglyceride levels. 3. Next procedure scheduled 06/14/21. I have seen and examined the patient, reviewed pertinent notes and records, and remained immediately available throughout the procedure. Phoenix Riddle MD Clinical Specialist Vascular, therapeutic apheresis service [phone] CHLIGHT OPERATOR * Melodie Vasquez RN - 06/07/2021 9:30 AM CST Plasma exchange completed today using L/R Bard ports for draw and return. 1.0 volume, 100% fluid balance using Albumin as replacement fluid completed. 2 grams calcium gluconate given intra procedure.Dr. Riddle visited pt chairside. Procedure tolerated well. Next procedure scheduled for 06/14/2021. Pt discharged ambulatory in stable condition. CHLIGHT OPERATOR documented in this encounter Plan of Treatment Upcoming Encounters Date Type Department Care Team (Late st Contact Info) Description 09/14/2024 3:00 PM CDT Office Visit [facility] Heart and Vascular - [facility] [address] [address] Marlys Mayer MD [address] [place] [address] documented as of this encounter Procedures Procedure Name Priority Date/Time Associated Diagnosis Comments TRIGLYCERIDE Routine 06/07/2021 11:01 AM SEARCHLIGHT OPERATOR Hypertriglyceridemia TRIGLYCERIDE Routine 06/07/2021 9:29 AM SEARCHLIGHT OPERATOR Hypertriglyceridemia documented in this encounter Results * (ABNORMAL) TRIGLYCERIDE (06/07/2021 11:01 AM SEARCHLIGHT OPERATOR) TRIGLYCERIDE 518(H) <150 mg/dL 06/07/2021 12:16 PM SEARCHLIGHT OPERATOR [facility] Blood Venipuncture / Unknown 06/07/2021 11:01 AM SEARCHLIGHT OPERATOR 06/07/2021 11:30 AM SEARCHLIGHT OPERATOR [facility] - 06/07/2021 12:16 PM SEARCHLIGHT OPERATOR TRIGLYCERIDES ? mg/dL Normal ?< 150 Borderline High ?150 - 199 High ? 200 - 499 Very High ? >= 500 Based on AHA/NCEP Guidelines. Phoenix Riddle MD CHEMISTRY ORDERABLE S [facility]# [id number] [address] [facility] [place] [place] [address] * (ABNORMAL) TRIGLYCERIDE (06/07/2021 9:29 AM SEARCHLIGHT OPERATOR) TRIGLYCERIDE 1,377(H) <150 mg/dL 06/07/2021 11:08 AM [facility] Blood Venipuncture / Unknown 06/07/2021 9:29 AM SEARCHLIGHT OPERATOR 06/07/2021 10:04 AM SEARCHLIGHT OPERATOR [facility] - 06/07/2021 11:08 AM SEARCHLIGHT OPERATOR TRIGLYCERIDES ? mg/dL Normal ?< 150 Borderline High ?150 - 199 High ? 200 - 499 Very High ? >= 500 Based on AHA/NCEP Guidelines. Phoenix Riddle MD [facility]# [id number] [address] [place] [address] documented in this encounter Visit Diagnoses Diagnosis Hypertriglyceridemia- Primary Pure hyperglyceridemia documented in this encounter Administered Medications Inactive Administered Medications - up to 3 most recent administrations Medication Order MAR Action Action Date Dose Rate Site calcium GLUCONATE 2,000 mg in sodium chloride (iso-osmotic) 100 mL IVPB 2,000 mg, IV, ONE TIME ONLY, 1 dose, On Sat06/07/21 at 0930, Routine New Bag 06/07/2021 10:07 AM SEARCHLIGHT OPERATOR 2,000 mg 100 mL/hr heparin, porcine (pf) 10 unit/mL IV syringe 20 Units 20 Units, IV, ONE TIME ONLY, 1 dose, On Sat06/07/21 at 0930, Routine, Tube to station 516, blood bank Given 06/07/2021 10:21 AM SEARCHLIGHT OPERATOR 20 Units heparin, porcine lock flush (pf) 100 unit/mL injection 500 Units 500 Units, IV, ONE TIME ONLY, 1 dose, On Sat06/07/21 at 0930, Routine, Tube to station 516, blood bank Given 06/07/2021 10:22 AM SEARCHLIGHT OPERATOR 500 Units heparin, porcine lock flush (pf) 100 unit/mL injection 500 Units 500 Units, IV, ONE TIME ONLY, 1 dose, On Sat06/07/21 at 0930, Routine, Tube to station 516, blood bank Given 06/07/2021 10:23 AM SEARCHLIGHT OPERATOR 500 Units sodium chloride flush injection 10 mL 10 mL, IV, ONE TIME ONLY, 1 dose, On Sat06/07/21 at 0930, Routine Given 06/07/2021 10:21 AM SEARCHLIGHT OPERATOR 10 mL sodium chloride flush injection 10 mL 10 mL, IV, ONE TIME ONLY, 1 dose, On Sat06/07/21 at 0930, Routine Given 06/07/2021 10:22 AM SEARCHLIGHT OPERATOR 10 mL sodium chloride flush injection 20 mL 20 mL, IV, ONE TIME ONLY, 1 dose, On Sat06/07/21 at 0930, Routine Given 06/07/2021 10:22 AM SEARCHLIGHT OPERATOR 20 mL documented in this encounter Additional Health Concerns Assessment Noted Time PHQ-9 Depression Total Score: 1 08/11/19 21 6:30 PM CDT documented as of this encounter Care Teams Service Developer Relationship Specialty Start Date End Date Guerrero Middleton PA-C PCP - General Physician Lead Janitor 02/13/18 documented as of this encounter
--- OUTSIDE RECORDS SUMMARY | 2024-05-03 20:38 | XMS_ITS | Encounter Summary ---
Author Organization [facility] Address [address] Orozco: Epic Prelude ADT [place] [address] Care Team Providers Care New Car Driver Name Role Phone Guerrero Middleton PA-C Primary Care Provide r Encounter Details Date Type Department Care Team (Latest Contact Info) Description 05/05/2021 Travel Social History Tobacco Use Types Packs/Day [...] week 08/21/2018 How often do you attend [facility] or zoroastrian services? Never 08/21/2018 Do you belong to [...] have Coronavirus / COVID-19? No / Unsure 05/05/2021 9:01 AM RN INTENSIVE CARE UNIT documented as of this encounter Plan of Treatment Upcoming Encounters Date Type Department Care Team (Late st Contact Info) Description 09/14/2024 3:00 PM CDT Office Visit [facility] [address] [place] [address] Marlys Mayer MD [address] [place], [place] [id number] documented as of this encounter Visit Diagnoses Not on filedocumented in this encounter Additional Health Concerns Assessment Noted Time PHQ-9 Depression Total Score: 1 08/11/19 21 6:30 PM CDT documented as of this encounter Care Teams New Car Driver Relationship Specialty Start Date End Date Guerrero Middleton PA-C PCP - General Physician Cytogenetic Technician 02/13/18 documented as of this encounter
--- OUTSIDE RECORDS SUMMARY | 2024-05-03 20:39 | XMS_ITS | Encounter Summary ---
Author Organization [facility] Address [address] [place] [address] Care Team Providers Care Electronic Coils Supervisor Name Role Phone Guerrero Middleton PA-C Primary Care Provide r Encounter Details Date Type Department Care Team (Latest Contact Info) Description 03/20/2021 9:30 AM GLASSWARE DEFECT REPAIRER - 03/20/2021 11:59 PM [facility] Hospital Encounter [facility] Donor Services [facility] [address] [place] [address] Phoenix Riddle MD [address] [facility] [place] [address] Discharge Disposition: Home or Self [...] any clubs o r organizations such as presybeterian groups, unions, fraternal or athletic groups, or [...] have Coronavirus / COVID-19? No / Unsure 03/20/2021 9:28 AM GLASSWARE DEFECT REPAIRER documented as of this encounter Last Filed Vital Signs Vital Sign Reading Time Taken Comments Blood Pressure 121/84 03/20/2021 11:14 AM GLASSWARE DEFECT REPAIRER Pulse 81 03/20/2021 11:14 AM GLASSWARE DEFECT REPAIRER Temperature 36.7 ??C (98 ??F) 03/20/2021 11:14 AM GLASSWARE DEFECT REPAIRER Respiratory Rate 18 03/20/2021 11:14 AM GLASSWARE DEFECT REPAIRER Oxygen Saturation - - Inhaled Oxygen Concentration - - Weight - - Height - - Body Mass Index - - documented in this encounter Medications at Time of Discharge Medication Sig Dispensed Refills Start Date End Date citalopram (CeleXA) 40 mg tablet TAKE 1 [...] by mouth 2 times daily. 06/05/2018 09/26/2023 fenofibrate (LOFIBRA) 160 mg Tablet TAKE 1 TABLET BY MOUTH EVERY DAY 90 Tablet 01/27/2021 05/01/2021 metFORMIN (GLUCOPHAGE) 1,000 mg tablet TAKE 1 TABLET (1,000 MG) BY MOUTH 2 TIMES DAILY WITH MEALS. 180 Tablet 01/27/2021 05/01/2021 empagliflozin (Jardiance) 25 mg tablet TAKE 1 TABLET BY MOUTH EVERY BUSINESS INTELLIGENCE ENGINEER 30 Tablet 5 12/07/2020 06/01/2021 Vascepa 1 gram Capsule TAKE 2 CAPSULES (2 GRAMS) BY MOUTH 2 TIMES DAILY WITH MEALS. 120 Capsule 5 12/07/2020 06/01/2021 insulin aspart U-100 (NovoLOG Flexpen U-100 Insulin) 100 unit/mL pen syringe INJECT APPROXIMATELY 50 UNITS A DAY PER CORRECTION DOSE WITH MEALS 45 mL 1 11/01/2020 05/02/2021 levothyroxine 200 mcg tabletIndications:Acq uired hypothyroidism Take 1 Tablet (200 mcg) by mouth daily. Once daily on an empty stomach 90 Tablet 3 09/15/2020 09/26/2023 insulin glargine (Basaglar KwikPen U-100 Insulin) 100 unit/mL pen syringe 35 units bid 60 mL 1 09/15/2020 07/04/2022 buPROPion HCL (WELLBUTRIN SR) 150 mg Sustained Release 12 hour tablet Take 1 Tablet (150 mg) by mouth 2 times daily. 60 Tablet 6 09/15/2020 03/30/2021 LORazepam (ATIVAN) 1 mg tabletIndications:Dep ression with [...] Progress Notes * Delroy Tristan RN - 03/20/2021 9:30 AM CST Plasma exchange completed today using Left and right for draw and return. 1.0 volume, 100% fluid balance using 5% albumin as replacement fluid completed. 2 grams calcium gluconate given intra procedure. Patient tolerated procedure well. Next procedure scheduled for 03/29/2021. SWARE DEFECT REPAIRER * Phoenix Riddle MD - 03/20/2021 9:30 AM CST CC: ??45??yo female undergoing prophylaxis for??hypertriglyceridemic pancreatitis in the setting ofrecurrent necrotizing pancreatitis requires??plasma exchange. ?? Interval history: Fatigue has improved, patient has no concerns or complaints. ?? Procedure note: 1.0 volume plasma exchange with 5% albumin replacement, 100% fluid balance, 2 g calcium gluconate during procedure.?Patient tolerated the procedure without complaints or adverse events. ?? 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 Exam: ?? General Appearance: - Well nourished, no acute distress Skin: - R??and L??chest port sites??unremarkable Respiratory: - Unlabored breathing Neuro: - Alert and Oriented ?Labs: 02/13/21 WBC 6.9 hbg 12.2 hct 37.8 PLT 249 ?? 02/09/21 Preprocedure triglycerides: ??2041 mg/dL 02/09/21 Postprocedure triglycerides: ??704 mg/dL 02/13/21 Preprocedure triglycerides: ??502 mg/dL 02/13/21 Postprocedure triglycerides: ??340 mg/dL 02/22/21 Preprocedure triglycerides: 1,640 mg/dL 02/22/21 Postprocedure triglycerides: 592 mg/dL 03/01/21 Preprocedure triglycerides:?>4,425??mg/dL 03/01/21 Postprocedure triglycerides:??1,832??mg/dL 03/15/21 Preprocedure triglycerides: 3542 mg/dL 03/15/21 Postprocedure triglycerides: 1419 mg/dL 03/20/21 Pre triglycerides: 2913 mg/dL 03/20/21 Post triglycerides: 1116 mg/dL ?? A&P: 1. 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 2. Continue maintenance PLEX with 1.0 volume exchange, 5% albumin replacement, 100% fluid volume, 2g calcium gluconate during procedure on a weekly basis, or more frequent based on symptoms and triglyceride levels. 3. Next procedure??scheduled 03/29/21 ?? I have seen and examined the patient, reviewed pertinent notes and records, and remained immediately available throughout the procedure. ?? Phoenix Riddle MD Motorcoach Driver, therapeutic apheresis service [phone] SWARE DEFECT REPAIRER documented in this encounter Plan of Treatment Upcoming Encounters Date Type Department Care Team (Late st Contact Info) Description 09/14/2024 3:00 PM CDT Office Visit [facility] Heart and Vascular - [place] [address] [place] [phone] Marlys Mayer MD [address] [place], [place] [id number] documented as of this encounter Procedures Procedure Name Priority Date/Time Associated Diagnosis Comments TRIGLYCERIDE Routine 03/20/2021 11:07 AM GLASSWARE DEFECT REPAIRER Hypertriglyceridemia TRIGLYCERIDE Routine 03/20/2021 9:53 AM GLASSWARE DEFECT REPAIRER Hypertriglyceridemia documented in this encounter Results * (ABNORMAL) TRIGLYCERIDE (03/20/2021 11:07 AM GLASSWARE DEFECT REPAIRER) TRIGLYCERIDE 1,116(H) <150 mg/dL 03/20/2021 12:02 PM GLASSWARE DEFECT REPAIRER [facility] Blood Venipuncture / Unknown 03/20/2021 11:07 AM GLASSWARE DEFECT REPAIRER 03/20/2021 11:14 AM GLASSWARE DEFECT REPAIRER Narrative [facility] - 03/20/2021 12:02 PM GLASSWARE DEFECT REPAIRER TRIGLYCERIDES ? mg/dL Normal ?< 150 Borderline High ?150 - 199 High ? 200 - 499 Very High ? >= 500 Based on AHA/NCEP Guidelines. Phoenix Riddle MD CHEMISTRY ORDERABLE [facility] [id number] [address] [place] [address] * (ABNORMAL) TRIGLYCERIDE (03/20/2021 9:53 AM GLASSWARE DEFECT REPAIRER) TRIGLYCERIDE 2,913(H) <150 mg/dL 03/20/2021 10:41 AM GLASSWARE DEFECT REPAIRER [facility] [employer] [facility] Blood Venipuncture / Unknown 03/20/2021 9:53 AM GLASSWARE DEFECT REPAIRER 03/20/2021 9:55 AM GLASSWARE DEFECT REPAIRER Narrative [facility] - 03/20/2021 10:41 AM GLASSWARE DEFECT REPAIRER TRIGLYCERIDES ? mg/dL Normal ?< 150 Borderline High ?150 - 199 High ? 200 - 499 Very High ? >= 500 Based on AHA/NCEP Guidelines. Phoenix Riddle MD CHEMISTRY ORDERABLE S [facility]# [id number] [address] [place] [place] [address] documented in this encounter Visit Diagnoses Diagnosis Hypertriglyceridemia- Primary Pure hyperglyceridemia documented in this encounter Administered Medications Inactive Administered Medications - up to 3 most recent administrations Medication Order MAR Action Action Date Dose Rate Site calcium GLUCONATE 2,000 mg in sodium chloride (iso-osmotic) 100 mL IVPB 2,000 mg, IV, ONE TIME ONLY, 1 dose, On Sat03/20/21 at 0930, Routine New Bag 03/20/2021 9:58 AM GLASSWARE DEFECT REPAIRER 2,000 mg 100 m L/hr heparin, porcine (pf) 10 unit/mL IV syringe 20 Units 20 Units, IV, ONE TIME ONLY, 1 dose, On Sat03/20/21 at 0930, Routine Given 03/20/2021 10:56 AM GLASSWARE DEFECT REPAIRER 20 Units heparin, porcine lock flush (pf) 100 unit/mL injection 500 Units 500 Units, IV, ONE TIME ONLY, 1 dose, On Sat03/20/21 at 0930, Routine Given 03/20/2021 10:56 AM GLASSWARE DEFECT REPAIRER 500 Units heparin, porcine lock flush (pf) 100 unit/mL injection 500 Units 500 Units, IV, ONE TIME ONLY, 1 dose, On Sat03/20/21 at 0930, Routine, Tube to station 516, blood bank Given 03/20/2021 10:55 AM GLASSWARE DEFECT REPAIRER 500 Units sodium chloride flush injection 10 mL 10 mL, IV, ONE TIME ONLY, 1 dose, On Sat03/20/21 at 0930, Routine, Tube to station 516, blood bank Given 03/20/2021 10:55 AM GLASSWARE DEFECT REPAIRER 10 mL sodium chloride flush injection 10 mL 10 mL, IV, ONE TIME ONLY, 1 dose, On Sat03/20/21 at 0930, Routine Given 03/20/2021 10:56 AM GLASSWARE DEFECT REPAIRER 10 mL sodium chloride flush injection 20 mL 20 mL, IV, ONE TIME ONLY, 1 dose, On Sat03/20/21 at 0930, Routine Given 03/20/2021 10:54 AM GLASSWARE DEFECT REPAIRER 20 mL documented in this encounter Additional Health Concerns Assessment Noted Time PHQ-9 Depression Total Score: 1 08/11/19 21 6:30 PM CDT documented as of this encounter Care Teams Electronic Coils Supervisor Relationship Specialty Start Date End Date Guerrero Middleton PA-C PCP - General Physician Lockstitch Collar Setter 02/13/18 documented as of this encounter
--- OUTSIDE RECORDS SUMMARY | 2024-05-03 20:39 | XMS_ITS | Encounter Summary ---
Author Organization [facility] Address [address] Orozco: Epic Prelude ADT [place] [address] Care Team Providers Care Icu Staff Nurse Name Role Phone Guerrero Middleton PA-C Primary Care Provide r Encounter Details Date Type Department Care Team (Latest Contact Info) Description 01/27/2021 Travel Social History Tobacco Use Types Packs/Day [...] week 08/21/2018 How often do you attend [facility] or holiness services? Never 08/21/2018 Do you [...] have Coronavirus / COVID-19? No / Unsure 01/27/2021 9:01 AM CDT documented as of this encounter Plan of Treatment Upcoming Encounters Date Type Department Care Team (Late st Contact Info) Description 09/14/2024 3:00 PM CDT Office Visit [facility] [address] [address] [place] [address] Marlys Mayer MD [address] [place] [address] documented as of this encounter Visit Diagnoses Not on filedocumented in this encounter Additional Health Concerns Assessment Noted Time PHQ-9 Depression Total Score: 1 08/11/19 21 6:30 PM CDT documented as of this encounter Care Teams Icu Staff Nurse Relationship Specialty Start Date End Date Guerrero Middleton PA-C PCP - General Physician Wood Boatbuilder Apprentice 02/13/18 documented as of this encounter
--- OUTSIDE RECORDS SUMMARY | 2024-05-03 20:39 | XMS_ITS | Encounter Summary ---
Author Organization [facility] Address [address] [place] [address] Care Team Providers Care Certified Appliance Service Technician Name Role Phone Guerrero Middleton PA-C Primary Care Provide r Encounter Details Date Type Department Care Team (Latest Contact Info) Description 02/09/2021 10:30 AM CDT - 02/09/2021 11:59 PM CDT Hospital Encounter [facility] Donor Services [facility] [address] [place] [address] Phoenix Riddle MD [address] [facility] [place] [address] Discharge Disposition: Home or Self [...] often do you attend chur ch or hindu services? Never 08/21/2018 Do you [...] have Coronavirus / COVID-19? No / Unsure 02/09/2021 10:18 AM CDT documented as of this encounter Last Filed Vital Signs Vital Sign Reading Time Taken Comments Blood Pressure 120/83 02/09/2021 12:02 PM CDT Pulse 93 02/09/2021 12:02 PM CDT Temperature 37 ??C (98.6 ??F) 02/09/2021 12:02 PM CDT Respiratory Rate 16 02/09/2021 12:02 PM CDT Oxygen Saturation - - Inhaled Oxygen [...] tablet TAKE 1 TABLET BY MOUTH EVERY BABBITTER 30 Tablet 5 12/07/2020 06/01/2021 Vascepa 1 [...] as of this encounter Progress Notes * Daniel Whitehead RN - 02/09/2021 10:30 AM CDT Plasma exchange completed today using right and left chest BARD ports for draw and return. 1.0 volume 100% fluid balance using 5% Albumin as replacement fluid completed. 2 grams calcium gluconate given intra procedure. Patient tolerated procedure well. Next procedure scheduled for 02/10/[address] Riddle. * Phoenix Riddle MD - 02/09/2021 10:30 AM CDT CC: ??45??yo female undergoing prophylaxis for??hypertriglyceridemic pancreatitis in the setting ofrecurrent necrotizing pancreatitis requires??plasma exchange. ?? Interval history:??Patient feels much better today, abdominal pain improved to 2/10 from 5/10 yesterday. ?? Procedure note: 1.0 volume plasma exchange [...] breathing Neuro: - Alert and Oriented ?Labs: 01/27/21 Preprocedure triglycerides: 1646 mg/dL 01/27/21 Postprocedure triglycerides: ??640 mg/dL 02/01/21 Preprocedure triglycerides: ??2631 mg/dL 02/01/21 Postprocedure triglycerides: ??1070 mg/dL 02/08/21 Preprocedure triglycerides: 4309 mg/dL 02/08/21 Postprocedure triglycerides: 1938 mg/dL 02/09/21 Preprocedure triglycerides: 2041 mg/dL 02/09/21 Postprocedure triglycerides: 704 mg/dL ?? A&P: 1. 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 2. Good response to two days of PLEX, with triglycerides 704 mg/dL 3. Continue maintenance PLEX with 1.0 volume exchange, 5% albumin replacement, 100% fluid volume, 2g calcium gluconate during procedure on a weekly basis, or more frequent based on symptoms and triglyceride levels. 4. Next procedure to be performed 02/13 (not 02/10), prior to patient leaving [facility] for 1 week ?? I have seen and examined the patient, reviewed pertinent notes and records, and remained immediately available throughout the procedure. ?? Phoenix Riddle MD Clinical Psychologist Private Practice, therapeutic apheresis service [phone] documented in this encounter Plan of Treatment Upcoming Encounters Date Type Department Care Team (Late st Contact Info) Description 09/14/2024 3:00 PM CDT Office Visit [facility] Heart and Vascular - [place] [address] [place] [address] Marlys Mayer MD [address] [place] [address] documented as of this encounter Procedures Procedure Name Priority Date/Time Associated Diagnosis Comments TRIGLYCERIDE Routine 02/09/2021 12:09 PM CDT Hypertriglyceridemia Chronic pancreatitis Moderate protein-calorie malnutrition Uncontrolled type 2 diabetes mellitus with hyperglycemia Other acute pancreatitis without infection or necrosis Recurrent pancreatitis Acquired hypothyroidism Left upper quadrant pain History of pancreatitis Mixed hyperlipidemia History of plasmapheresis Epigastric pain Gastroesophageal reflux disease, unspecified whether esophagitis present Hyponatremia Type 2 diabetes mellitus without complication, with long-term current use of insulin Tobacco use Depression with anxiety Nausea vomiting and diarrhea Chylomicronemia syndrome PCOS (polycystic ovarian syndrome) Family history of early CAD Family history of diabetes mellitus History of gestational diabetes Metabolic syndrome TRIGLYCERIDE Routine 02/09/2021 10:51 AM CDT Hypertriglyceridemia documented in this encounter Results * (ABNORMAL) TRIGLYCERIDE (02/09/2021 12:09 PM CDT) TRIGLYCERIDE 704(H) <150 mg/dL 02/09/2021 12:44 PM CDT [facility] [employer] [facility] Blood Collection / Unknown 02/09/2021 12:09 PM CDT 02/09/2021 12:09 PM CDT Narrative [facility] [employer] [facility] - 02/09/2021 12:44 PM CDT TRIGLYCERIDES ? mg/dL Normal ?< 150 Borderline High ?150 - 199 High ? 200 - 499 Very High ? >= 500 Based on AHA/NCEP Guidelines. Phoenix Riddle MD CHEMISTRY ORDERABLE S [facility] [employer] [facility] CLIA# [id number] [address] [place] [address] * (ABNORMAL) TRIGLYCERIDE (02/09/2021 10:51 AM CDT) TRIGLYCERIDE 2,041(H) <150 mg/dL 02/09/2021 11:46 AM CDT [facility] Blood Collection / Unknown 02/09/2021 10:51 AM CDT 02/09/2021 10:51 AM CDT Narrative [facility] - 02/09/2021 11:46 AM CDT TRIGLYCERIDES ? mg/dL Normal ?< 150 Borderline High ?150 - 199 High ? 200 - 499 Very High ? >= 500 Based on AHA/NCEP Guidelines. Phoenix Riddle MD CHEMISTRY ORDERABLE S [facility] [employer] [facility] CLIA# [id number] [address] [place] [address] documented in this encounter Visit Diagnoses Diagnosis Hypertriglyceridemia- Primary Pure hyperglyceridemia Chronic pancreatitis Moderate protein-calorie malnutrition Malnutrition of moderate degree Uncontrolled type 2 diabetes mellitus with hyperglycemia Other acute pancreatitis without infection or necrosis Recurrent pancreatitis Chronic pancreatitis Acquired hypothyroidism Unspecified hypothyroidism Left upper quadrant pain Abdominal pain, left upper quadrant History of pancreatitis Personal history of other diseases of digestive system Mixed hyperlipidemia History of plasmapheresis Epigastric pain Abdominal pain, epigastric Gastroesophageal reflux disease, unspecified whether esophagitis present Hyponatremia Hyposmolality and/or hyponatremia Type 2 diabetes mellitus without complication, with long-term current use of insulin Tobacco use Tobacco use disorder Depression with anxiety Dysthymic disorder Nausea vomiting and diarrhea Nausea with vomiting Chylomicronemia syndrome Hyperchylomicronemia PCOS (polycystic ovarian syndrome) Polycystic ovaries Family history of early CAD Family history of ischemic heart disease Family history of diabetes mellitus History of gestational diabetes Personal history of gestational diabetes Metabolic syndrome Dysmetabolic Syndrome X documented in this encounter Administered Medications Inactive Administered Medications - up to 3 most recent administrations Medication Order MAR Action Action Date Dose Rate Site calcium GLUCONATE 2,000 mg in sodium chloride (iso-osmotic) 100 mL IVPB 2,000 mg, IV, ONE TIME ONLY, 1 dose, On Katie 02/09/21 at 1000, Routine New Bag 02/09/2021 10:56 AM CDT 2,000 mg 100 mL/hr heparin, porcine (pf) 10 unit/mL IV syringe 20 Units 20 Units, IV, ONE TIME ONLY, 1 dose, On Katie 02/09/21 at 1000, Routine Given 02/09/2021 12:22 PM CDT 20 Units heparin, porcine lock flush (pf) 100 unit/mL injection 500 Units 500 Units, IV, ONE TIME ONLY, 1 dose, On Katie 02/09/21 at 1000, Routine Given 02/09/2021 12:23 PM CDT 500 Units heparin, porcine lock flush (pf) 100 unit/mL injection 500 Units 500 Units, IV, ONE TIME ONLY, 1 dose, On Katie 02/09/21 at 1000, Routine Given 02/09/2021 12:24 PM CDT 500 Units sodium chloride flush injection 10 mL 10 mL, IV, ONE TIME ONLY, 1 dose, On Katie 02/09/21 at 1000, Routine Given 02/09/2021 12:21 PM CDT 10 mL sodium chloride flush injection 10 mL 10 mL, IV, ONE TIME ONLY, 1 dose, On Katie 02/09/21 at 1000, Routine Given 02/09/2021 12:22 PM CDT 10 mL sodium chloride flush injection 20 mL 20 mL, IV, ONE TIME ONLY, 1 dose, On Katie 02/09/21 at 1000, Routine Given 02/09/2021 12:23 PM CDT 20 mL documented in this encounter Additional Health Concerns Assessment Noted Time PHQ-9 Depression Total Score: 1 08/11/19 21 6:30 PM CDT documented as of this encounter Care Teams Certified Appliance Service Technician Relationship Specialty Start Date End Date Guerrero Middleton PA-C PCP - General Physician License Distributor 02/13/18 documented as of this encounter
--- OUTSIDE RECORDS SUMMARY | 2024-05-03 20:39 | XMS_ITS | Encounter Summary ---
Author Organization [facility] Address [address] [place] [address] Care Team Providers Care Staffing Executive Name Role Phone Guerrero Middleton PA-C Primary Care Provide r Reason for Visit * Reason Onset Date Comments appt letter 04/24/2021 Encounter Details Date Type Department Care Team (Late st Contact Info) Description 04/24/2021 Telephone [facility] Endocrinology [address] [place] [address] Prudence Gates MD [address] [place] [address] appt letter Social History Tobacco Use Types Packs/Day Years [...] How often do you attend chur or restorationist services? Never 08/21/2018 Do you belong to [...] have Coronavirus / COVID-19? No / Unsure 04/10/2021 9:25 AM CUSTOMER RELATIONS COORDINATOR documented as of this encounter Miscellaneous Notes * Telephone Encounter - Suze Jackson - 04/24/2021 2:30 PM CST Appt warning letter being sent OMER RELATIONS COORDINATOR documented in this encounter Plan of Treatment Upcoming Encounters Date Type Department Care Team (Late st Contact Info) Description 09/14/2024 3:00 PM CDT Office Visit [facility] [address] [place] [address] Marlys Mayer MD [address] [place] [address] documented as of this encounter Visit Diagnoses Not on filedocumented in this encounter Additional Health Concerns Assessment Noted Time PHQ-9 Depression Total Score: 1 08/11/19 21 6:30 PM CDT documented as of this encounter Care Teams Staffing Executive Relationship Specialty Start Date End Date Guerrero Middleton PA-C PCP - General Physician Motel Clerk 02/13/18 documented as of this encounter
--- OUTSIDE RECORDS SUMMARY | 2024-05-03 20:39 | XMS_ITS | Encounter Summary ---
Author Organization [facility] Address [address] [place] [address] Care Team Providers Care Seater Assembler Name Role Phone Guerrero Middleton PA-C Primary Care Provide r Encounter Details Date Type Department Care Team (Latest Contact Info) Description 04/05/2021 9:30 AM [facility] GRAD[facility] - 04/05/2021 11:59 PM [facility] Hospital Encounter [facility] Donor Services [address] [address] Nicole Rosas MD [address] [place] [address] Discharge Disposition: Home or Self Care [...] often do you attend chur ch or islam services? Never 08/21/2018 Do you belong to [...] have Coronavirus / COVID-19? No / Unsure 04/05/2021 9:16 AM DIAMOND [employer]ER AND GRADER documented as of this encounter Last Filed Vital Signs Vital Sign Reading Time Taken Comments Blood Pressure 107/73 04/05/2021 11:00 AM DIAM[employer]ER [employer] GRADER Pulse 83 04/05/2021 11:00 AM DIAM[employer] GRADER Temperature 37.1 ??C (98.7 ??F) 04/05/2021 11:[address] Respiratory Rate 16 04/05/2021 11:00 AM [facility]AMOND [facility]ER [employer] GRADER Oxygen Saturation - - Inhaled Oxygen Concentration - - Weight 83.5 kg (184 lb) 04/05/2021 9:44 AM [facility]ER AND GRADER Height 165.1 cm (5' 5 ) 04/05/2021 9:44 AM [facility] [employer] GRADER Body Mass Index 30.62 04/05/2021 9:44 AM [facility] [employer] GRADER documented in this encounter Medications at Time [...] 2 times daily. 06/05/2018 09/26/2023 buPROPion HCL (WELLBUTRIN SR) 150 mg Sustained Release 12 hour tablet TAKE 1 TABLET BY MOUTH 2 TIMES DAILY 60 Tablet 5 03/30/2021 09/20/2021 fenofibrate (LOFIBRA) 160 mg Tablet TAKE 1 TABLET BY MOUTH EVERY DAY 90 Tablet 01/27/2021 05/01/2021 metFORMIN (GLUCOPHAGE) 1,000 mg tablet TAKE 1 TABLET (1,000 MG) BY MOUTH 2 TIMES DAILY WITH MEALS. 180 Tablet 01/27/2021 05/01/2021 empagliflozin (Jardiance) 25 mg tablet TAKE 1 TABLET BY MOUTH EVERY SENIOR INTERACTIVE DEVELOPER 30 Tablet 5 12/07/2020 06/01/2021 Vascepa 1 [...] Progress Notes * Melodie Vasquez RN - 04/05/2021 9:30 AM CST Plasma exchange completed today using R bard port for draw and left bard port for return. 1.0 volume, 100% fluid balance using 5% albumin as replacement fluid completed. 2 grams calcium gluconate given intra procedure. Patient tolerated procedure well. Next procedure scheduled for 04/10/2021. O[facility] SIZER AND GRADER * Nicole Mondragon MD - 04/05/2021 9:30 AM CST CC: ??45??yo female undergoing prophylaxis for??hypertriglyceridemic pancreatitis in the setting ofrecurrent necrotizing pancreatitis requires??plasma exchange. ?? Interval history:?? Patient has no concerns or complaints. At baseline. Cancelled last week's PLEX due to fatigue from travel. ?? Procedure note: 1.0 volume plasma exchange [...] 592 mg/dL 03/01/21 Preprocedure triglycerides:?>4,425??mg/dL 03/01/21 Postprocedure triglycerides:??1,832??mg/dL?? 03/15/21 Preprocedure triglycerides: ??3542 mg/dL 03/15/21 Postprocedure triglycerides: ??1419 mg/dL 03/20/21 Pre triglycerides: 2913 mg/dL 03/20/21 Post triglycerides: 1116 mg/dL 04/05/21 Pre triglyceridedes: >4425 mg/dL 04/05/21 Post triglycerides: 1,831 mg/dL A&P: 1. 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 2. Continue maintenance PLEX with 1.0 volume exchange, 5% albumin replacement, 100% fluid volume, 2g calcium gluconate during procedure on a weekly basis, or more frequent based on symptoms and triglyceride levels. 3. Next procedure??scheduled??04/12/21 ?? I have seen and examined the patient, reviewed pertinent notes and records, and remained immediately available throughout the procedure. ?? Nicole Mondragon MD Aerospace Project Manager, therapeutic apheresis service [phone] [facility] [facility] documented in this encounter Plan of Treatment Upcoming Encounters Date Type Department Care Team (Late st Contact Info) Description 09/14/2024 3:00 PM CDT Office Visit [facility] Heart and Vascular - [place] [address] [address] [address] [place] [address] Marlys Mayer MD [address] [place] [address] documented as of this encounter Procedures Procedure Name Priority Date/Time Associated Diagnosis Comments TRIGLYCERIDE Routine 04/05/2021 11:37 AM [facility] [employer] GRADER Hypertriglyceridemia TRIGLYCERIDE Routine 04/05/2021 10:08 AM [facility] [employer] GRADER Hypertriglyceridemia documented in this encounter Results * (ABNORMAL) TRIGLYCERIDE (04/05/2021 11:37 AM [facility] [employer] GRADER) TRIGLYCERIDE 1,831(H) <150 mg/dL 04/05/2021 12:46 PM [facility] GRADER [facility] Blood Venipuncture / Unknown 04/05/2021 11:37 AM DIAM[facility]ER AND GRADER 04/05/2021 11:52 AM [facility]ER AND GRADER Narrative [facility] - 04/05/2021 12:46 PM DIAMOND SIZER AND GRADER TRIGLYCERIDES ? mg/dL Normal ?< 150 Borderline High ?150 - 199 High ? 200 - 499 Very High ? >= 500 Based on AHA/NCEP Guidelines. Nicole Rosas MD CHEMISTRY YONI SERRANO Performing Organization Address City/State/[facility] Co de Phone Number [facility] [email or web address] [facility]# [id number] [address] [place] [address] * (ABNORMAL) TRIGLYCERIDE (04/05/2021 10:08 AM DIAMOND SIZER AND GRADER) TRIGLYCERIDE >4,425(H) <150 mg/dL 04/05/2021 12:32 PM DIAMOND [facility]ZER AND GRADER [facility] [email or web address] [facility] Blood Venipuncture / Unknown 04/05/2021 10:08 AM DIAMOND SIZER AND GRADER 04/05/2021 10:12 AM DIAM[facility]ZER AND GRADER Narrative [facility] [email or web address] [facility] - 04/05/2021 12:32 PM [facility] [employer] GRADER TRIGLYCERIDES ? mg/dL Normal ?< 150 Borderline High ?150 - 199 High ? 200 - 499 Very High ? >= 500 Based on AHA/NCEP Guidelines. Nicole Rosas MD CHEMISTRY YONI SERRANO Performing Organization Address [facility] Co de Phone Number [facility] [email or web address] [facility]# [id number] [address] [place] [address] documented in this encounter Visit Diagnoses Diagnosis Hypertriglyceridemia- Primary Pure hyperglyceridemia Mixed hyperlipidemia documented in this encounter Administered Medications Inactive Administered Medications - up to 3 most recent administrations Medication Order MAR Action Action Date Dose Rate Site calcium GLUCONATE 2,000 mg in sodium chloride (iso-osmotic) 100 mL IVPB 2,000 mg, IV, INTRA-PROCEDURE ONCE, 1 dose, Starting on Sat04/05/21 at 0930, Until Sat04/05/21 at 1135, Routine New Bag 04/05/2021 9:39 AM [facility] [employer] GRADER 2,000 mg 50 mL/ hr heparin, porcine (pf) 10 unit/mL IV syringe 20 Units 20 Units, IV, ONE TIME ONLY, 1 dose, On Sat04/05/21 at 0930, Routine Given 04/05/2021 10:24 AM [facility]ER AND GRADER 20 Units heparin, porcine lock flush (pf) 100 unit/mL injection 500 Units 500 Units, IV, ONE TIME ONLY, 1 dose, On Sat04/05/21 at 0945, Routine Given 04/05/2021 10:39 AM DIAMOND SIZER AND GRADER 500 Units heparin, porcine lock flush (pf) 100 unit/mL injection 500 Units 500 Units, IV, ONE TIME ONLY, 1 dose, On Sat04/05/21 at 0930, Routine Given 04/05/2021 10:22 AM DIAMOND SIZER AND GRADER 500 Units sodium chloride flush injection 10 mL 10 mL, IV, ONE TIME ONLY, 1 dose, On Sat04/05/21 at 0930, Routine Given 04/05/2021 10:23 AM DIAMOND SIZER AND GRADER 10 mL sodium chloride flush injection 10 mL 10 mL, IV, ONE TIME ONLY, 1 dose, On Sat04/05/21 at 0930, Routine Given 04/05/2021 10:39 AM DIAMOND SIZER AND GRADER 10 mL sodium chloride flush injection 20 mL 20 mL, IV, ONE TIME ONLY, 1 dose, On Sat04/05/21 at 0930, Routine Given 04/05/2021 10:22 AM [facility] AND GRADER 20 mL documented in this encounter Additional Health Concerns Assessment Noted Time PHQ-9 Depression Total Score: 1 08/11/19 21 6:30 PM CDT documented as of this encounter Care Teams Seater Assembler Relationship Specialty Start Date End Date Guerrero Middleton PA-C PCP - General Physician Web Services Professional 02/13/18 documented as of this encounter
--- OUTSIDE RECORDS SUMMARY | 2024-05-03 20:39 | XMS_ITS | Encounter Summary ---
Author Organization [facility] Address [address] [place] [address] Care Team Providers Care Cardio Tech Name Role Phone Guerrero Middleton PA-C Primary Care Provide r Reason for Visit * Reason Onset Date Comments Medication Refill 04/24/2021 Encounter Details Date Type Department Care Team (Late st Contact Info) Description 04/24/2021 Refill [facility] Endocrinology [address] [place] [address] Prudence Gates MD [address] [place] [address] Social History Tobacco Use Types Packs/Day Years [...] often do you attend chur ch or jainism services? Never 08/21/2018 Do you belong to any clubs o r organizations such as scientology groups, unions, fraternal or athletic groups, or [...] COVID-19? No / Unsure 04/10/2021 9:25 AM SLEEVE SETTER SAFETY STITCH documented as of this encounter Plan of Treatment Upcoming Encounters Date Type Department Care Team (Late st Contact Info) Description 09/14/2024 3:00 PM CDT Office Visit [facility] Heart and Vascular - [facility] [address] [place] [address] Marlys Mayer MD [address] [place] [address] documented as of this encounter Visit Diagnoses Not on filedocumented in this encounter Additional Health Concerns Assessment Noted Time PHQ-9 Depression Total Score: 1 08/11/19 21 6:30 PM CDT documented as of this encounter Care Teams Cardio Tech Relationship Specialty Start Date End Date Guerrero Middleton PA-C PCP - General Physician Cutter Tender 02/13/18 documented as of this encounter
--- OUTSIDE RECORDS SUMMARY | 2024-05-03 20:39 | XMS_ITS | Encounter Summary ---
Author Organization [facility] Address [address] [place] [address] Care Team Providers Care Cutting Machine Tender Decorative Name Role Phone Guerrero Middleton PA-C Primary Care Provide r Encounter Details Date Type Department Care Team (Latest Contact Info) Description 02/01/2021 9:30 AM CDT - 02/01/2021 11:59 PM CDT Hospital Encounter [facility] [address] [place] [address] Phoenix Riddle MD [address] [place] [address] Discharge Disposition: Home or Self [...] any clubs o r organizations such as tenriism groups, unions, fraternal or athletic groups, or [...] have Coronavirus / COVID-19? No / Unsure 02/01/2021 9:28 AM CDT documented as of this encounter Last Filed Vital Signs Vital Sign Reading Time Taken Comments Blood Pressure 113/76 02/01/2021 11:10 AM CDT Pulse 89 02/01/2021 11:10 AM CDT Temperature 36.7 ??C (98.1 ??F) 02/01/2021 11:10 AM C DT Respiratory Rate 16 02/01/2021 11:10 AM CDT Oxygen Saturation - - Inhaled [...] tablet TAKE 1 TABLET BY MOUTH EVERY FILM NUMBERER 30 Tablet 5 12/07/2020 06/01/2021 Vascepa 1 [...] Progress Notes * Sharri Juarez RN - 02/01/2021 9:30 AM CDT Plasma exchange completed today using R and L chest BARD ports for draw and return. Used 5% Albuminas replacement fluid for a 1.0 volume exchange with a 100% fluid balance. Patient tolerated the procedure well. Patient left BDS department ambulatory and in stable condition. The next plasma exchange is scheduled for January. * Phoenix Riddle MD - 02/01/2021 9:30 AM CDT CC: ??45??yo female undergoing prophylaxis for??hypertriglyceridemic pancreatitis in the setting ofrecurrent necrotizing pancreatitis requires??plasma exchange. ?? Interval history: Patient notes a busy, stressful weekend, but is without complaint or concern. Abdominal pain approximately 2-3/10, at baseline. 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 ?? Procedure note: 1.0 volume plasma exchange with 5% albumin replacement, 100% fluid balance, 2 g calcium gluconate during procedure. Patient tolerated the procedure without complaints or adverse events. ?? 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 Meds: as per EPIC. ?? Exam: ?? General Appearance: - Well nourished, no acute distress Skin: - Inspection: Generalized facial erythema, mildly increased over baseline - R??and L??chest port sites??unremarkable Respiratory: - Unlabored breathing Neuro: - Alert and Oriented ?Labs: 01/02/21??WBC??5.7, hemoglobin??12.3, hematocrit??38.0,?platelets??221 01/25/21??Preprocedure triglycerides: cancelled (lipemia >3,000) 01/25/21 Postprocedure triglycerides: >4,425 mg/dL 01/26/21 Preprocedure triglycerides: 3,872 mg/dL 01/26/21 Postprocedure triglycerides: 1, 691 mg/dL 01/26/21 INR: 1.1 01/27/21 Preprocedure triglycerides: 1646 mg/dL 01/28/21 Postprocedure triglycerides: 640 mg/dL 02/01/21 Preprocedure triglycerides: 2631 mg/dL 02/01/21 Postprocedure triglycerides: 1070 mg/dL ?? A&P: 1. 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 2. Patient had responded well to 3 day course (01/25, 01/26, 01/27) outpatient PLEX last week, with reduction in triglycerides and improvement of abdominal pain. 3.Triglycerides again elevated on presentation, PLEX unable to reduce below 1000 mg/dL. 4. Continue weekly plasma exchange, next appointment 02/08/21? I have seen and examined the patient, reviewed pertinent notes and records, and remained immediately available throughout the procedure. ?? Phoenix Riddle MD Bank Clerk, therapeutic apheresis service [phone] documented in this encounter Plan of Treatment Upcoming Encounters Date Type Department Care Team (Late st Contact Info) Description 09/14/2024 3:00 PM CDT Office Visit [facility] - [address] [place] [address] Marlys Mayer MD [address] [place] [address] documented as of this encounter Procedures Procedure Name Priority Date/Time Associated Diagnosis Comments TRIGLYCERIDE Routine 02/01/2021 11:18 AM CDT Hypertriglyceridemia TRIGLYCERIDE Routine 02/01/2021 9:58 AM CDT Hypertriglyceridemia documented in this encounter Results * (ABNORMAL) TRIGLYCERIDE (02/01/2021 11:18 AM CDT) TRIGLYCERIDE 1,070(H) <150 mg/dL 02/01/2021 12:25 PM CDT [facility] Blood Collection / Unknown 02/01/2021 11:18 AM CDT 02/01/2021 11:29 AM CDT Narrative [facility] - 02/01/2021 12:25 PM CDT TRIGLYCERIDES ? mg/dL Normal ?< 150 Borderline High ?150 - 199 High ? 200 - 499 Very High ? >= 500 Based on AHA/NCEP Guidelines. Phoneix Riddle MD CHEMISTRY ORDERABLE S [facility] CLIA# [id number] [address] [place] [address] * (ABNORMAL) TRIGLYCERIDE (02/01/2021 9:58 AM CDT) TRIGLYCERIDE 2,631(H) <150 mg/dL 02/01/2021 11:09 AM CDT [facility] Blood Collection / Unknown 02/01/2021 9:58 AM CDT 02/01/2021 10:07 AM CDT Narrative [facility] - 02/01/2021 11:09 AM CDT TRIGLYCERIDES ? mg/dL Normal ?< 150 Borderline High ?150 - 199 High ? 200 - 499 Very High ? >= 500 Based on AHA/NCEP Guidelines. Phoenix Riddle MD CHEMISTRY ORDERABLE S Performing Organization Address City/State/[facility] Co de Phone Number [facility] CLIA# [id number] [address] [place] [place] [address] documented in this encounter Visit Diagnoses Diagnosis Hypertriglyceridemia- Primary Pure hyperglyceridemia documented in this encounter Administered Medications Inactive Administered Medications - up to 3 most recent administrations Medication Order MAR Action Action Date Dose Rate Site calcium GLUCONATE 2,000 mg in sodium chloride (iso-osmotic) 100 mL IVPB 2,000 mg, IV, ONE TIME ONLY, 1 dose, On Sat02/01/21 at 0930, Routine New Bag 02/01/2021 10:05 AM CDT 2,000 mg 100 mL/hr heparin, porcine (pf) 10 unit/mL IV syringe 20 Units 20 Units, IV, ONE TIME ONLY, 1 dose, On Sat02/01/21 at 0930, Routine, Please tube to 516, thanks! Given 02/01/2021 11:04 AM CDT 20 Units heparin, porcine lock flush (pf) 100 unit/mL injection 500 Units 500 Units, IV, ONE TIME ONLY, 1 dose, On 02/01/21 at 0930, Routine, Please tube to 516, thanks! Given 02/01/2021 11:05 AM CDT 500 Units heparin, porcine lock flush (pf) 100 unit/mL injection 500 Units 500 Units, IV, ONE TIME ONLY, 1 dose, On Sat02/01/21 at 0930, Routine, Please tube to 516, thanks! Given 02/01/2021 11:03 AM CDT 500 Units sodium chloride flush injection 10 mL 10 mL, IV, ONE TIME ONLY, 1 dose, On Sat02/01/21 at 0930, Routine Given 02/01/2021 11:04 AM CDT 10 mL sodium chloride flush injection 10 mL 10 mL, IV, ONE TIME ONLY, 1 dose, On Sat02/01/21 at 0930, Routine Given 02/01/2021 11:05 AM CDT 10 mL sodium chloride flush injection 20 mL 20 mL, IV, ONE TIME ONLY, 1 dose, On Sat02/01/21 at 0930, Routine Given 02/01/2021 11:02 AM CDT 20 mL documented in this encounter Additional Health Concerns Assessment Noted Time PHQ-9 Depression Total Score: 1 08/11/19 21 6:30 PM CDT documented as of this encounter Care Teams Cutting Machine Tender Decorative Relationship Specialty Start Date End Date Guerrero Middleton PA-C PCP - General Physician Call Center Consultant 02/13/18 documented as of this encounter
--- OUTSIDE RECORDS SUMMARY | 2024-05-03 20:39 | XMS_ITS | Encounter Summary ---
Author Organization [facility] Address [address] Orozco: Epic Prelude ADT [place] [address] Care Team Providers Care Bank Officer Name Role Phone Guerrero Middleton PA-C Primary Care Provide r Encounter Details Date Type Department Care Team (Latest Contact Info) Description 01/25/2021 Travel Social History Tobacco Use Types Packs/Day [...] How often do you attend [facility] or gnosticism services? Never 08/21/2018 Do you [...] have Coronavirus / COVID-19? No / Unsure 01/25/2021 8:48 AM CDT documented as of this encounter Plan of Treatment Upcoming Encounters Date Type Department Care Team (Late st Contact Info) Description 09/14/2024 3:00 PM CDT Office Visit [facility] [address] [place] [address] Marlys Mayer MD [address] [place] [address] documented as of this encounter Visit Diagnoses Not on filedocumented in this encounter Additional Health Concerns Assessment Noted Time PHQ-9 Depression Total Score: 1 08/11/19 21 6:30 PM CDT documented as of this encounter Care Teams Bank Officer Relationship Specialty Start Date End Date Guerrero Middleton PA-C PCP - General Physician Chief Engineer'S Helper 02/13/18 documented as of this encounter
--- OUTSIDE RECORDS SUMMARY | 2024-05-03 20:39 | XMS_ITS | Encounter Summary ---
Author Organization [facility] Address [address] [place] [address] Care Team Providers Care Mass Communications Instructor Name Role Phone Guerrero Middleton PA-C Primary Care Provide r Reason for Visit * Reason Comments Medication Refill Encounter Details Date Type Department Care Team (Late st Contact Info) Description 04/29/2021 Refill [facility] Endocrinology [address] [place] [address] Coty Pierson MD [address] [place] [address] Social History Tobacco Use Types [...] Recorded In the last 10 days, have vale u been in contact with someone who was confirmed or suspected to have Coronavirus/COVID-19? No / Unsure 12/20/2021 9:26 AM CDT documented as of this encounter Miscellaneous Notes * Telephone Encounter - Lexus Iyer - 05/02/2021 11:47 AM CST ANGELES: 11/09/2020 CA: 04/19/2021 NOV: Not lesia. DILIGENCE COORDINATOR documented in this encounter Plan of Treatment Upcoming Encounters Date Type Department Care Team (Late st Contact Info) Description 09/14/2024 3:00 PM CDT Office Visit [facility] [address] [place] [address] Marlys Mayer MD [address] [place] [address] documented as of this encounter Visit Diagnoses Not on filedocumented in this encounter Additional Health Concerns Assessment Noted Time PHQ-9 Depression Total Score: 1 08/11/19 21 6:30 PM CDT documented as of this encounter Care Teams Mass Communications Instructor Relationship Specialty Start Date End Date Guerrero Middleton PA-C PCP - General Physician Exhaust And Muffler Fitter 02/13/18 documented as of this encounter
--- OUTSIDE RECORDS SUMMARY | 2024-05-03 20:39 | XMS_ITS | Encounter Summary ---
Author Organization [facility] Address [address] Orozco: Epic Prelude ADT [place] [address] Care Team Providers Care Judge Clerk Name Role Phone Guerrero Middleton PA-C Primary Care Provide r Encounter Details Date Type Department Care Team (Latest Contact Info) Description 02/22/2021 Travel Social History Tobacco Use Types Packs/Day [...] week 08/21/2018 How often do you attend [facility] or hindu services? Never 08/21/2018 Do you [...] have Coronavirus / COVID-19? No / Unsure 02/22/2021 9:55 AM CDT documented as of this encounter Plan of Treatment Upcoming Encounters Date Type Department Care Team (Late st Contact Info) Description 09/14/2024 3:00 PM CDT Office Visit [facility] [address] [place] [address] Marlys Mayer MD [address] [place] [address] documented as of this encounter Visit Diagnoses Not on filedocumented in this encounter Additional Health Concerns Assessment Noted Time PHQ-9 Depression Total Score: 1 08/11/19 21 6:30 PM CDT documented as of this encounter Care Teams Judge Clerk Relationship Specialty Start Date End Date Guerrero Middleton PA-C PCP - General Physician Social Media Coordinator 02/13/18 documented as of this encounter
--- OUTSIDE RECORDS SUMMARY | 2024-05-03 20:39 | XMS_ITS | Encounter Summary ---
Author Organization [facility] Address [address] [place] [address] Care Team Providers Care Business Analytics Manager Name Role Phone Guerrero Middleton PA-C Primary Care Provide r Encounter Details Date Type Department Care Team (Latest Contact Info) Description 02/22/2021 9:30 AM CDT - 02/22/2021 11:59 PM CDT Hospital Encounter [facility] Donor Services [address] [address] Nicole Rosas MD [address] [place] [address] Discharge Disposition: Home or Self Care [...] Sign Reading Time Taken Comments Blood Pressure 116/77 02/22/2021 11:51 AM CDT Pulse 101 02/22/2021 11:51 AM CDT Temperature 36.8 ??C (98.2 ??F) 02/22/2021 11:51 AM C DT Respiratory Rate 16 02/22/2021 11:51 AM CDT Oxygen Saturation - - Inhaled [...] tablet TAKE 1 TABLET BY MOUTH EVERY VENETIAN BLIND CLEANER 30 Tablet 5 12/07/2020 06/01/2021 Vascepa 1 [...] Progress Notes * Puja Paz RN - 02/22/2021 9:30 AM CDT Plasma exchange completed using R/L Bard ports. 1.0 volume, 100% fluid balance using 5% albumin replacement fluid. Pt tolerated procedure well. Next procedure scheduled for 03/01/21. * Nicole Mondragon MD - 02/22/2021 9:30 AM CDT CC: ??45??yo female undergoing prophylaxis for??hypertriglyceridemic pancreatitis in the setting ofrecurrent necrotizing pancreatitis requires??plasma exchange. ?? Interval history:??Patient is without complaint, states she has had a reduction in stress. ?? Procedure note: 1.0 volume plasma exchange [...] 6.9 hbg 12.2 hct 37.8 PLT 249 02/08/21 Preprocedure triglycerides: ??4309 mg/dL 02/08/21 Postprocedure triglycerides: ??1938 mg/dL 02/09/21 Preprocedure triglycerides: ??2041 mg/dL 02/09/21 Postprocedure triglycerides: ??704 mg/dL 02/13/21 Preprocedure triglycerides: 502 mg/dL 02/13/21 Postprocedure triglycerides: 340 mg/dL 02/22/21 Preprocedure triglycerides: 1,640 mg/dL 02/22/21 Postprocedure triglycerides: 592 mg/dL ?? A&P: 1. 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 2.??Good response to most recent course of PLEX 3. Continue maintenance PLEX with 1.0 volume exchange, 5% albumin replacement, 100% fluid volume, 2g calcium gluconate during procedure on a weekly basis, or more frequent based on symptoms and triglyceride levels. 4. Next procedure to be performed 03/01/2021 ?? I have seen and examined the patient, reviewed pertinent notes and records, and remained immediately available throughout the procedure. ?? Nicole Mondragon MD High [employer] Chemistry Teacher, therapeutic apheresis service [phone] documented in this encounter Plan of Treatment Upcoming Encounters Date Type Department Care Team (Late st Contact Info) Description 09/14/2024 3:00 PM CDT Office Visit [facility] Heart and Vascular - [facility] [address] [address] [address] [place] [address] Marlys Mayer MD [address] [place] [address] documented as of this encounter Procedures Procedure Name Priority Date/Time Associated Diagnosis Comments TRIGLYCERIDE Routine 02/22/2021 11:41 AM CDT Chronic pancreatitis Moderate protein-calorie malnutrition Uncontrolled type [...] Depression with anxiety Nausea vomiting and diarrhea Hypertriglyceridemia Chylomicronemia syndrome PCOS (polycystic ovarian syndrome) Family history of early CAD Family history of diabetes mellitus History of gestational diabetes Metabolic syndrome TRIGLYCERIDE Routine 02/22/2021 10:23 AM CDT Chronic pancreatitis Moderate protein-calorie malnutrition Uncontrolled type [...] Depression with anxiety Nausea vomiting and diarrhea Hypertriglyceridemia Chylomicronemia syndrome PCOS (polycystic ovarian syndrome) Family history of early CAD Family history of diabetes mellitus History of gestational diabetes Metabolic syndrome documented in this encounter Results * (ABNORMAL) TRIGLYCERIDE (02/22/2021 11:41 AM CDT) TRIGLYCERIDE 592(H) <150 mg/dL 02/22/2021 12:17 PM CDT [facility] [employer] [facility] Blood Venipuncture / Unknown 02/22/2021 11:41 AM CDT 02/22/2021 11:51 AM CDT Narrative [facility] [employer] [facility] - 02/22/2021 12:17 PM CDT TRIGLYCERIDES ? mg/dL Normal ?< 150 Borderline High ?150 - 199 High ? 200 - 499 Very High ? >= 500 Based on AHA/NCEP Guidelines. Nicole Rosas MD CHEMISTRY YONI SERRANO Performing Organization Address [facility] de Phone Number [facility] [employer] [facility]# [id number] [address] [place] [address] * (ABNORMAL) TRIGLYCERIDE (02/22/2021 10:23 AM CDT) TRIGLYCERIDE 1,640(H) <150 mg/dL 02/22/2021 11:13 AM CDT [facility] [employer] [facility] Blood Venipuncture / Unknown 02/22/2021 10:23 AM CDT 02/22/2021 10:25 AM CDT Narrative [facility] [employer] [facility] - 02/22/2021 11:13 AM CDT TRIGLYCERIDES ? mg/dL Normal ?< 150 Borderline High ?150 - 199 High ? 200 - 499 Very High ? >= 500 Based on AHA/NCEP Guidelines. Nicole Rosas MD CHEMISTRY YONI SERRANO Performing Organization Address [facility] Phone Number [facility] [employer] [facility]# [id number] [address] [place] [address] documented in this encounter Visit Diagnoses Diagnosis Chronic pancreatitis- Primary Moderate protein-calorie malnutrition Malnutrition of moderate degree [...] Nausea vomiting and diarrhea Nausea with vomiting Hypertriglyceridemia Pure hyperglyceridemia Chylomicronemia syndrome Hyperchylomicronemia PCOS (polycystic ovarian syndrome) [...] IV, ONE TIME ONLY, 1 dose, On Sat02/22/21 at 0930, Routine New Bag 02/22/2021 10:27 AM CDT 2,000 mg 100 mL/hr heparin, porcine (pf) 10 unit/mL IV syringe 20 Units 20 Units, IV, ONE TIME ONLY, 1 dose, On Sat02/22/21 at 0930, Routine, PLEASE TUBE TO STATION 516. Given 02/22/2021 11:37 AM CDT 20 Units heparin, porcine lock flush (pf) 100 unit/mL injection 500 Units 500 Units, IV, ONE TIME ONLY, 1 dose, On Sat02/22/21 at 0930, Routine, PLEASE TUBE TO STATION 516. Given 02/22/2021 11:38 AM CDT 500 Units heparin, porcine lock flush (pf) 100 unit/mL injection 500 Units 500 Units, IV, ONE TIME ONLY, 1 dose, On Sat02/22/21 at 0930, Routine, PLEASE TUBE TO STATION 516. Given 02/22/2021 11:36 AM CDT 500 Units sodium chloride flush injection 10 mL 10 mL, IV, ONE TIME ONLY, 1 dose, On Sat02/22/21 at 0930, Routine Given 02/22/2021 11:37 AM CDT 10 mL sodium chloride flush injection 10 mL 10 mL, IV, ONE TIME ONLY, 1 dose, On Sat02/22/21 at 0930, Routine Given 02/22/2021 11:37 AM CDT 10 mL sodium chloride flush injection 20 mL 20 mL, IV, ONE TIME ONLY, 1 dose, On Tu02/21/21 at 1530, Routine Given 02/22/2021 11:36 AM CDT 20 mL documented in this encounter Additional Health Concerns Assessment Noted Time PHQ-9 Depression Total Score: 1 08/11/19 21 6:30 PM CDT documented as of this encounter Care Teams Business Analytics Manager Relationship Specialty Start Date End Date Guerrero Middleton PA-C PCP - General Physician Debubblizer 02/13/18 documented as of this encounter
--- OUTSIDE RECORDS SUMMARY | 2024-05-03 20:39 | XMS_ITS | Encounter Summary ---
Author Organization [facility] Address [address] [place] [address] Care Team Providers Care Canvass Manager Name Role Phone Guerrero Middleton PA-C Primary Care Provide r Encounter Details Date Type Department Care Team (Latest Contact Info) Description 01/27/2021 9:00 AM CDT - 01/27/2021 11:59 PM CDT Hospital Encounter [facility] Donor Services [facility] [address] [place] [address] Phoenix Riddle MD [address] [facility] [place] [address] Discharge Disposition: Home or Self [...] any clubs o r organizations such as religious groups, unions, fraternal or athletic groups, or [...] Sign Reading Time Taken Comments Blood Pressure 112/77 01/27/2021 10:59 AM CDT Pulse 96 01/27/2021 10:59 AM CDT Temperature 36.6 ??C (97.9 ??F) 01/27/2021 10:59 AM C DT Respiratory Rate 16 01/27/2021 10:59 AM CDT Oxygen Saturation - - Inhaled [...] tablet TAKE 1 TABLET BY MOUTH EVERY CALL WORKER 30 Tablet 5 12/07/2020 06/01/2021 Vascepa 1 [...] Progress Notes * Daniel Whitehead RN - 01/27/2021 9:00 AM CDT Plasma exchange completed today using right and left chest BARD ports for draw and return. 1.0 volume, 100% fluid balance using 5% Albumin and last two units FFP completed. 2 grams calcium gluconate given intra procedure. Patient tolerated procedure well. Next procedure scheduled for 02/01/[address] Riddle. * Phoenix Riddle MD - 01/27/2021 9:00 AM CDT CC: ??45??yo female undergoing prophylaxis for??hypertriglyceridemic pancreatitis in the setting ofrecurrent necrotizing pancreatitis requires??plasma exchange. ?? Interval history:??Current course of outpatient plasmapheresis initiated 01/25 due to abdominal painand unreportably high triglycerides. Patient reports improvement in abdominal pain from 10/06 yesterday to 2-3/10 today, which is essentially her baseline. No other concerns or complaints. Procedure note: 1.0 volume plasma exchange with 5% albumin replacement, 100% fluid balance, 2 g calcium gluconate during procedure, finish with 2 units of FFP and 25 mg IV benadryl. Patient toleratedthe procedure without complaints or adverse events. ?? 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 Meds: as per EPIC. ?? Exam: ?? General Appearance: - Well nourished, no acute distress Skin: - Inspection: No rashes evident - R??and L??chest port sites??unremarkable Respiratory: - Unlabored breathing Neuro: - Alert and Oriented ?Labs: 01/02/21??WBC??5.7, hemoglobin??12.3, hematocrit??38.0,?platelets??221 01/25/21??Preprocedure triglycerides: cancelled (lipemia >3,000) 01/25/21 Postprocedure triglycerides: >4,425 mg/dL 01/26/21 Preprocedure triglycerides: 3,872 mg/dL 01/26/21 Postprocedure triglycerides: 1, 691 mg/dL 01/26/21 INR: 1.1 01/27/21 Preprocedure triglycerides: 1646 mg/dL 01/28/21 Postprocedure triglycerides: 640 mg/dL ?? A&P: 1. 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 2. Patient responded well to 3 day course (01/25, 01/26, 01/27) outpatient PLEX, with reduction in triglycerides and improvement of abdominal pain. 3. Plan for weekly prophylactic PLEX starting 02/01. ?? I have seen and examined the patient, reviewed pertinent notes and records, and remained immediately available throughout the procedure. ?? Phoenix Riddle MD Quality Systems Engineer, therapeutic apheresis service [phone] documented in this encounter Plan of Treatment Upcoming Encounters Date Type Department Care Team (Late st Contact Info) Description 09/14/2024 3:00 PM CDT Office Visit [facility] Heart and Vascular - [place] [address] [place] [address] Marlys Mayer MD [address] [place] [address] documented as of this encounter Procedures Procedure Name Priority Date/Time Associated Diagnosis Comments TRIGLYCERIDE Routine 01/27/2021 11:04 AM CDT Chronic pancreatitis Moderate protein-calorie malnutrition [...] of gestational diabetes Metabolic syndrome TRIGLYCERIDE Routine 01/27/2021 9:38 AM CDT Chronic pancreatitis Moderate protein-calorie malnutrition [...] mellitus History of gestational diabetes Metabolic syndrome PREPARE FRESH FROZEN PLASMA Routine 01/26/2021 5:22 PM CDT PREPARE FRESH FROZEN PLASMA Routine 01/26/2021 5:22 PM CDT PREPARE FRESH FROZEN PLASMA Routine 01/26/2021 5:22 PM CDT PREPARE FRESH FROZEN PLASMA Routine 01/26/2021 5:22 PM CDT Chronic pancreatitis Moderate protein-calorie malnutrition Uncontrolled [...] in this encounter Results * (ABNORMAL) TRIGLYCERIDE (01/27/2021 11:04 AM CDT) TRIGLYCERIDE 640(H) <150 mg/dL 01/27/2021 11:38 AM CDT [facility] [employer] [facility] Blood Collection / Unknown 01/27/2021 11:04 AM CDT 01/27/2021 11:04 AM CDT [facility] [employer] [facility] - 01/27/2021 11:38 AM CDT TRIGLYCERIDES ? mg/dL Normal ?< 150 Borderline High ?150 - 199 High ? 200 - 499 Very High ? >= 500 Based on AHA/NCEP Guidelines. Phoenix Riddle MD CHEMISTRY ORDERABLE S [facility] [employer] [facility]# [id number] [address] [place] [address] * (ABNORMAL) TRIGLYCERIDE (01/27/2021 9:38 AM CDT) TRIGLYCERIDE 1,646(H) <150 mg/dL 01/27/2021 10:34 AM CDT [facility] [employer] [facility] Blood Collection / Unknown 01/27/2021 9:38 AM CDT 01/27/2021 9:39 AM CDT [facility] - 01/27/2021 10:34 AM CDT TRIGLYCERIDES ? mg/dL Normal ?< 150 Borderline High ?150 - 199 High ? 200 - 499 Very High ? >= 500 Based on AHA/NCEP Guidelines. Phoenix Riddle MD CHEMISTRY ORDERABLE S Performing Organization Address [facility] de Phone Number charity: water [facility]ORATORY [facility] - [facility]# [id number] [address] [place] [phone] * PREPARE FRESH FROZEN PLASMA (01/26/2021 5:22 PM CDT) COMPONENT TYPE [id number] charity: water [facility] COMPONENT IDENTIFICATION [id number] charity: water [facility] UN[facility] ABO B [facility] UN[facility] RH POS charity: water [facility] COMPONENT STATUS Transfused [facility] COMPONENT EXPIRATION DATE/TIME charity: water [facility] COMPONENT CODING SYSTEM [id number] [facility] 01/26/2021 5:22 PM CDT Phoenix Riddle MD LAB TRANSFUSION ORD ERABLES Performing Organization Address [facility] de Phone Number charity: water [facility] CLIA# [id number] [address] [place] [address] * PREPARE FRESH FROZEN PLASMA (01/26/2021 5:22 PM CDT) COMPONENT TYPE [id number] charity: water [facility] COMPONENT IDENTIFICATION [id number] charity: water [facility] UN[facility] ABO B [facility] RH POS [facility] COMPONENT STATUS Transfused [facility] COMPONENT EXPIRATION DATE/TIME [facility] COMPONENT CODING SYSTEM 7300 charity: water [facility]ORY [facility] 01/26/2021 5:22 PM CDT Phoenix Riddle MD LAB TRANSFUSION ORD ERABLES Performing Organization Address [facility]/State/ZIP Co de Phone Number [facility] -- [facility] CLIA# [id number] [address] [place] [address] * PREPARE FRESH FROZEN PLASMA (01/26/2021 5:22 PM CDT) COMPONENT TYPE [id number] [facility] COMPONENT IDENTIFICATION [id number] [facility] UN[facility] ABO B [facility] UN[facility] RH POS [facility] COMPONENT STATUS Returned [facility] COMPONENT EXPIRATION DATE/TIME [facility] COMPONENT CODING SYSTEM 7300 charity: water LAB[facility]ORY [facility] 01/26/2021 5:22 PM CDT Phoenix Riddle MD LAB TRANSFUSION ORD ERABLES Performing Organization Address [facility] Co de Phone Number [facility] CLIA# [id number] [address] [place] [address] * PREPARE FRESH FROZEN PLASMA (01/26/2021 5:22 PM CDT) COMPONENT TYPE [id number] [facility] COMPONENT IDENTIFICATION [id number] [facility] UN[facility] ABO B [facility] UN[facility] RH POS [facility] COMPONENT STATUS Returned [facility] COMPONENT EXPIRATION DATE/TIME [facility] COMPONENT CODING SYSTEM 7300 charity: water LAB[facility]ATORY [facility] -- [facility] Other, specify 01/26/2021 5: 22 PM CDT Phoenix Riddle MD LAB TRANSFUSION ORD ERABLES [facility]# [id number] [address] [place] [address] documented in this encounter Visit Diagnoses Diagnosis [...] IV, ONE TIME ONLY, 1 dose, On Sat01/27/21 at 0900, Routine New Bag 01/27/2021 9:40 AM CDT 2,000 mg 100 mL /hr diphenhydrAMINE (BENADRYL) injection 25 mg 25 mg, IV, ONE TIME ONLY, 1 dose, On Sat01/27/21 at 1015, Stat, PLEASE TUBE TO 516 Given 01/27/2021 10:28 AM CDT 25 mg heparin, porcine (pf) 10 unit/mL IV syringe 20 Units 20 Units, IV, ONE TIME ONLY, 1 dose, On Sat01/27/21 at 0900, Routine Given 01/27/2021 11:14 AM CDT 20 Units heparin, porcine lock flush (pf) 100 unit/mL injection 500 Units 500 Units, IV, ONE TIME ONLY, 1 dose, On Sat01/27/21 at 0900, Routine Given 01/27/2021 11:15 AM CDT 500 Units heparin, porcine lock flush (pf) 100 unit/mL injection 500 Units 500 Units, IV, ONE TIME ONLY, 1 dose, On Sat01/27/21 at 0900, Routine Given 01/27/2021 11:14 AM CDT 500 Units sodium chloride flush injection 10 mL 10 mL, IV, ONE TIME ONLY, 1 dose, On Sat01/27/21 at 0900, Routine, Please tube to station 516. Given 01/27/2021 11:14 AM CDT 10 mL sodium chloride flush injection 10 mL 10 mL, IV, ONE TIME ONLY, 1 dose, On Sat01/27/21 at 0900, Routine Given 01/27/2021 11:15 AM CDT 10 mL sodium chloride flush injection 20 mL 20 mL, IV, ONE TIME ONLY, 1 dose, On Sat01/27/21 at 0900, Routine, Please tube to station 516. Given 01/27/2021 11:13 AM CDT 20 mL documented in this encounter Additional Health Concerns Assessment Noted Time PHQ-9 Depression Total Score: 1 08/11/19 21 6:30 PM CDT documented as of this encounter Care Teams Canvass Manager Relationship Specialty Start Date End Date Guerrero Middleton PA-C PCP - General Physician Cnc Operator 02/13/18 documented as of this encounter
--- OUTSIDE RECORDS SUMMARY | 2024-05-03 20:39 | XMS_ITS | Encounter Summary ---
Author Organization [facility] Address [address] Orozco: Epic Prelude ADT [place] [address] Care Team Providers Care Wealth Management Director Name Role Phone Guerrero Middleton PA-C Primary Care Provide r Encounter Details Date Type Department Care Team (Latest Contact Info) Description 02/09/2021 Travel Social History Tobacco Use Types Packs/Day [...] week 08/21/2018 How often do you attend [facility] or zoroastrianism services? Never 08/21/2018 Do you [...] 3:00 PM CDT Office Visit [facility] [address] [place] [address] Marlys Mayer MD [address] [place] [address] documented as of this encounter Visit Diagnoses Not on filedocumented in this encounter Additional Health Concerns Assessment Noted Time PHQ-9 Depression Total Score: 1 08/11/19 21 6:30 PM CDT documented as of this encounter Care Teams Wealth Management Director Relationship Specialty Start Date End Date Guerrero Middleton PA-C PCP - General Physician Landscape Artist 02/13/18 documented as of this encounter
--- OUTSIDE RECORDS SUMMARY | 2024-05-03 20:39 | XMS_ITS | Encounter Summary ---
Author Organization [facility] Address [address] [place] [address] Care Team Providers Care Grounds Maintenance Worker Name Role Phone Guerrero Middleton PA-C Primary Care Provide r Reason for Visit * Reason Comments Medication Refill Encounter Details Date Type Department Care Team (Late st Contact Info) Description 01/26/2021 Refill [facility] Endocrinology [address] [place] [address] Prudence Gates MD [address] [place] [address] Social History Tobacco Use Types Packs/Day Years [...] often do you attend chur ch or baptism services? Never 08/21/2018 Do you belong to [...] * Telephone Encounter - Lexus Iyer - 01/27/2021 8:15 AM CDT ANGELES: 11/09/2020 NOV: 04/19/2021 documented in this encounter Plan of Treatment Upcoming Encounters Date Type Department Care Team (Late st Contact Info) Description 09/14/2024 3:00 PM CDT Office Visit [facility] [address] [place] [address] Marlys Mayer MD [address] [place] [address] documented as of this encounter Visit Diagnoses Not on filedocumented in this encounter Additional Health Concerns Assessment Noted Time PHQ-9 Depression Total Score: 1 08/11/19 21 6:30 PM CDT documented as of this encounter Care Teams Grounds Maintenance Worker Relationship Specialty Start Date End Date Guerrero Middleton PA-C PCP - General Physician Investment Executive 02/13/18 documented as of this encounter
--- OUTSIDE RECORDS SUMMARY | 2024-05-03 20:39 | XMS_ITS | Encounter Summary ---
Author Organization [facility] Address [address] [place] [address] Care Team Providers Care Voice Network Administrator Name Role Phone Guerrero Middleton PA-C Primary Care Provide r Encounter Details Date Type Department Care Team (Latest Contact Info) Description 01/25/2021 9:10 AM CDT - 01/25/2021 11:59 PM CDT Hospital Encounter [facility] Donor Services [address] [address] Nicole Rosas MD [address] [place] [address] Discharge Disposition: Home or Self Care [...] often do you attend chur ch or caodaism services? Never 08/21/2018 Do you belong to any clubs o r organizations such as faith groups, unions, fraternal or athletic groups, or [...] Sign Reading Time Taken Comments Blood Pressure 128/85 01/25/2021 11:12 AM CDT Pulse 99 01/25/2021 11:12 AM CDT Temperature 36.9 ??C (98.4 ??F) 01/25/2021 11:12 AM C DT Respiratory Rate 16 01/25/2021 11:12 AM CDT Oxygen Saturation - - [...] by mouth 2 times daily. 06/05/2018 09/26/2023 empagliflozin (Jardiance) 25 mg tablet TAKE 1 TABLET BY MOUTH EVERY CUSTOMER SUPPORT MANAGER 30 Tablet 5 12/07/2020 06/01/2021 Vascepa 1 [...] units bid 60 mL 1 09/15/2020 07/04/2022 metFORMIN (GLUCOPHAGE) 1,000 mg tablet Take 1 Tablet (1,000 mg) by mouth 2 times daily with meals. 180 Tablet 1 09/15/2020 01/27/2021 buPROPion HCL (WELLBUTRIN SR) 150 mg Sustained Release 12 hour tablet Take 1 Tablet (150 mg) by mouth 2 times daily. 60 Tablet 6 09/15/2020 03/30/2021 LORazepam (ATIVAN) 1 mg tabletIndications:Dep ression with anxiety Take 1 Tablet (1 mg) by mouth 2 times daily as needed for Anxiety. 60 Tablet 2 09/15/2020 09/26/2023 fenofibrate (LOFIBRA) 160 mg Tablet TAKE 1 TABLET BY MOUTH EVERY DAY 90 Tablet 1 06/06/2020 01/27/2021 Dexcom G6 Sensor Device Change sensor every [...] Progress Notes * Daniel Whitehead RN - 01/25/2021 9:30 AM CDT Plasma exchange completed today using right and left chest BARD ports for draw and return. 1.0 volume, 100% fluid balance using 5% Albumin as replacement fluid completed. 2 grams calcium gluconate given intra procedure. Patient tolerated procedure well. Next plasma exchange will be 02/01/[address] Mondragon. * Nicole Mondragon MD - 01/25/2021 9:30 AM CDT CC: ??45??yo female undergoing prophylaxis for??hypertriglyceridemic pancreatitis in the setting ofrecurrent necrotizing pancreatitis requires??plasma exchange. ?? Interval history:??Patient admitted 12/26/20 for acute on chronic pancreatitis. Was scheduled for 12/28/20 PLEX as an outpatient. Post-hospitalization interval has been uneventful and she is currently asymptomatic. ?? 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 ??Admission for pancreatitis requiring apheresis 05/2020,??06/2020, 07/2020).??DM, anxiety, GERG, HLD, hypothyroidism, PCOS ?? Meds: as per EPIC. ?? Exam: ?? General Appearance: - Well nourished Skin: - Inspection: No rashes evident - R??and L??chest port sites??well healed with pink scar Respiratory: - Unlabored breathing Neuro: - Alert and Oriented x??4 - Conversant but appears fatigued ?Labs: 01/02/21 WBC??5.7, hemoglobin??12.3, hematocrit 38.0,?platelets??221 01/25/21 Preprocedure triglycerides: cancelled (lipemia >3,000) 01/25/21 Postprocedure triglycerides: >4,425 mg/dL ?? A&P: 1. 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 Patient has??recurrent necrotizing pancreatitis??and was??initiated on prophylactic plasmaexchange for prevention of hypertriglyceridemic pancreatitis starting 11/12/18??in consultation withDrs. Rudd and Moreno.??(ASFA category III indication for apheresis).??Patient now follows with Dr. Gates with endocrine. 2. ??We will perform a 1.0 volume plasma exchange with all albumin replacement with 100% fluid balance with 2 g calcium gluconate over the procedure. ?? 3. Due to extremely elevated pre and post procedure triglycerides, we will plan for PLEX on 01/27 or01/30 as Ms. Jones's schedule allows. She is currently asymptomatic. ?? I have seen and examined the patient, reviewed pertinent notes and records, and remained immediately available throughout the procedure. ?? Nicole Mondragon MD Contact Worker, therapeutic apheresis service [phone] ?? Procedure??notes: Patient tolerated procedure well.?? documented in this encounter Plan of Treatment Upcoming Encounters Date Type Department Care Team (Late st Contact Info) Description 09/14/2024 3:00 PM CDT Office Visit [facility] Heart and Vascular - [place] [address] [place] [address] Marlys Mayer MD [address] [place] [address] documented as of this encounter Procedures Procedure Name Priority Date/Time Associated Diagnosis Comments TRIGLYCERIDE Stat 01/25/2021 11:17 AM CDT Hypertriglyceridemia Chronic pancreatitis Moderate protein-calorie malnutrition [...] in this encounter Results * (ABNORMAL) TRIGLYCERIDE (01/25/2021 11:17 AM CDT) TRIGLYCERIDE >4,425(H) <150 mg/dL 01/25/2021 12:29 PM CDT [facility] [employer] [facility] Blood Collection / Unknown 01/25/2021 11:17 AM CDT 01/25/2021 11:17 AM CDT Narrative [facility] - 01/25/2021 12:29 PM CDT TRIGLYCERIDES ? mg/dL Normal ?< 150 Borderline High ?150 - 199 High ? 200 - 499 Very High ? >= 500 Based on AHA/NCEP Guidelines. Nicole Rosas MD CHEMISTRY YONI SERRANO [facility]# [id number] [address] [place] [address] documented in this encounter Visit Diagnoses Diagnosis [...] IV, PRE-PROCEDURE ONCE, 1 dose, Starting on Sat01/25/21 at 0930, Until Sat01/25/21 at 1058, Routine New Bag 01/25/2021 9:58 AM CDT 2,000 mg 100 mL/hr heparin, porcine (pf) 10 unit/mL IV syringe 20 Units 20 Units, IV, ONE TIME ONLY, 1 dose, On Sat01/25/21 at 0930, Routine, PLEASE TUBE TO 516, THANKS! Given 01/25/2021 11:30 AM CDT 20 Units heparin, porcine lock flush (pf) 100 unit/mL injection 500 Units 500 Units, IV, ONE TIME ONLY, 1 dose, On Sat01/25/21 at 0930, Routine, PLEASE TUBE TO 516, THANKS! Given 01/25/2021 11:31 AM CDT 500 Units heparin, porcine lock flush (pf) 100 unit/mL injection 500 Units 500 Units, IV, ONE TIME ONLY, 1 dose, On Sat01/25/21 at 0930, Routine, PLEASE TUBE TO 516, THANKS! Given 01/25/2021 11:29 AM CDT 500 Units sodium chloride flush injection 10 mL 10 mL, IV, ONE TIME ONLY, 1 dose, On Sat01/25/21 at 0930, Routine Given 01/25/2021 11:30 AM CDT 10 mL sodium chloride flush injection 10 mL 10 mL, IV, ONE TIME ONLY, 1 dose, On Sat01/25/21 at 0930, Routine Given 01/25/2021 11:31 AM CDT 10 mL sodium chloride flush injection 20 mL 20 mL, IV, ONE TIME ONLY, 1 dose, On Sat01/25/21 at 09, Routine Given 01/25/2021 11:20 AM CDT 20 mL documented in this encounter Additional Health Concerns Assessment Noted Time PHQ-9 Depression Total Score: 1 08/11/19 21 6:30 PM CDT documented as of this encounter Care Teams Voice Network Administrator Relationship Specialty Start Date End Date Guerrero Middleton PA-C PCP - General Physician Photonics Engineer 02/13/18 documented as of this encounter
--- OUTSIDE RECORDS SUMMARY | 2024-05-03 20:39 | XMS_ITS | Encounter Summary ---
Author Organization [facility] Address [address] Orozco: Epic Prelude ADT [place] [address] Care Team Providers Care Senior Technical Recruiter Name Role Phone Guerrero Middleton PA-C Primary Care Provide r Encounter Details Date Type Department Care Team (Latest Contact Info) Description 03/01/2021 Travel Social History Tobacco Use Types Packs/Day [...] you attend [facility] or mosque services? Never 08/21/2018 Do you belong to [...] have Coronavirus / COVID-19? No / Unsure 03/01/2021 9:20 AM CDT documented as of this encounter Plan of Treatment Upcoming Encounters Date Type Department Care Team (Late st Contact Info) Description 09/14/2024 3:00 PM CDT Office Visit [facility] [address] [place] [address] Marlys Mayer MD [address] [place] [address] documented as of this encounter Visit Diagnoses Not on filedocumented in this encounter Additional Health Concerns Assessment Noted Time PHQ-9 Depression Total Score: 1 08/11/19 21 6:30 PM CDT documented as of this encounter Care Teams Senior Technical Recruiter Relationship Specialty Start Date End Date Guerrero Middleton PA-C PCP - General Physician Partner Alliance Manager 02/13/18 documented as of this encounter
--- OUTSIDE RECORDS SUMMARY | 2024-05-03 20:39 | XMS_ITS | Encounter Summary ---
Author Organization [facility] Address [address] [place] [address] Care Team Providers Care Manager Database Administration Name Role Phone Guerrero Middleton PA-C Primary Care Provide r Encounter Details Date Type Department Care Team (Latest Contact Info) Description 04/10/2021 Orders Only [facility] [address] [place] [address] Phoenix Riddle MD [address] [place] [address] Hypertriglyceridemia (Primary Dx) Social History Tobacco Use Types [...] often do you attend chur ch or mormonism services? Never 08/21/2018 Do you belong to [...] COVID-19? No / Unsure 04/10/2021 9:25 AM STEEL RULE INSPECTOR documented as of this encounter Plan of Treatment Upcoming Encounters Date Type Department Care Team (Late st Contact Info) Description 09/14/2024 3:00 PM CDT Office Visit [facility] [address] [facility] [address] [place] [phone] Marlys Mayer MD [address] [place] [address] documented as of this encounter Results * (ABNORMAL) TRIGLYCERIDE (04/10/2021 10:57 AM STEEL RULE INSPECTOR) TRIGLYCERIDE 2,535(H) <150 mg/dL 04/10/2021 12:11 PM STEEL RULE INSPECTOR [facility] Blood Collection / Unknown 04/10/2021 10:57 AM STEEL RULE INSPECTOR 04/10/2021 11:06 AM STEEL RULE INSPECTOR Narrative [facility] - 04/10/2021 12:11 PM STEEL RULE INSPECTOR TRIGLYCERIDES ? mg/dL Normal ?< 150 Borderline High ?150 - 199 High ? 200 - 499 Very High ? >= 500 Based on AHA/NCEP Guidelines. Phoenix Riddle MD CHEMISTRY ORDERABLE S [facility]# [id number] [address] [facility] [place] [address] documented in this encounter Visit Diagnoses Diagnosis Hypertriglyceridemia- Primary Pure hyperglyceridemia documented in this encounter Additional Health Concerns Assessment Noted Time PHQ-9 Depression Total Score: 1 08/11/19 21 6:30 PM CDT documented as of this encounter Care Teams Manager Database Administration Relationship Specialty Start Date End Date Guerrero Middleton PA-C PCP - General Physician Respiratory Care Assistant 02/13/18 documented as of this encounter
--- OUTSIDE RECORDS SUMMARY | 2024-05-03 20:39 | XMS_ITS | Encounter Summary ---
Author Organization [facility] Address [address] Orozco: Epic Prelude ADT [place] [address] Care Team Providers Care Instructional Support Services Director Name Role Phone Guerrero Middleton PA-C Primary Care Provide r Encounter Details Date Type Department Care Team (Latest Contact Info) Description 03/20/2021 Travel Social History Tobacco Use Types Packs/Day [...] 08/21/2018 How often do you attend [facility] or rastafarian services? Never 08/21/2018 Do you belong to any clubs o r organizations such as yazdanism groups, unions, fraternal or athletic groups, or [...] COVID-19? No / Unsure 03/20/2021 9:28 AM CASKET INSPECTOR documented as of this encounter Plan of Treatment Upcoming Encounters Date Type Department Care Team (Late st Contact Info) Description 09/14/2024 3:00 PM CDT Office Visit [facility] [place] [facility] [address] [place] [address] Marlys Mayer MD [address] [place], [place] [phone] documented as of this encounter Visit Diagnoses Not on filedocumented in this encounter Additional Health Concerns Assessment Noted Time PHQ-9 Depression Total Score: 1 08/11/19 21 6:30 PM CDT documented as of this encounter Care Teams Instructional Support Services Director Relationship Specialty Start Date End Date Guerrero Middleton PA-C PCP - General Physician Bookbinder Chief 02/13/18 documented as of this encounter
--- OUTSIDE RECORDS SUMMARY | 2024-05-03 20:39 | XMS_ITS | Encounter Summary ---
Author Organization [facility] Address [address] [place] [address] Care Team Providers Care Commuter Train Operator Name Role Phone Guerrero Middleton PA-C Primary Care Provide r Reason for Visit * Reason Comments Medication Refill Encounter Details Date Type Department Care Team (Late st Contact Info) Description 04/29/2021 Refill [facility] Endocrinology [address] [place] [address] Eliane Rosado MD [address] [place] [address] [place] [address] Social History Tobacco Use Types Packs/Day Years [...] How often do you attend chur or mosque services? Never 08/21/2018 Do you belong to any clubs o r organizations such as taoist groups, unions, fraternal or athletic groups, or [...] * Telephone Encounter - Lexus Iyer - 05/01/2021 8:49 AM CST ANGELES: 11/09/2020 CA: 04/19/2021 NOV: Not lesia. SALES AGENT documented in this encounter Plan of Treatment Upcoming Encounters Date Type Department Care Team (Late st Contact Info) Description 09/14/2024 3:00 PM CDT Office Visit [facility] Heart and Vascular - [place] [address] [address] [place] [phone] Marlys Mayer MD [address] [place] [address] [place] [address] documented as of this encounter Visit Diagnoses Not on filedocumented in this encounter Additional Health Concerns Assessment Noted Time PHQ-9 Depression Total Score: 1 08/11/19 21 6:30 PM CDT documented as of this encounter Care Teams Commuter Train Operator Relationship Specialty Start Date End Date Guerrero Middleton PA-C PCP - General Physician Beck Operator 02/13/18 documented as of this encounter
--- OUTSIDE RECORDS SUMMARY | 2024-05-03 20:39 | XMS_ITS | Encounter Summary ---
Author Organization [facility] Address [address] [place] [address] Care Team Providers Care Telecom Assistant Name Role Phone Guerrero Middleton PA-C Primary Care Provide r Encounter Details Date Type Department Care Team (Latest Contact Info) Description 02/08/2021 9:08 AM CDT - 02/08/2021 11:59 PM CDT Hospital Encounter [facility] Donor Services [facility] [address] [place] [address] Phoenix Riddle MD [address] Department [place] [address] Discharge Disposition: Home or Self [...] often do you attend chur ch or methodist services? Never 08/21/2018 Do you belong to [...] have Coronavirus / COVID-19? No / Unsure 02/08/2021 9:07 AM CDT documented as of this encounter Last Filed Vital Signs Vital Sign Reading Time Taken Comments Blood Pressure 118/76 02/08/2021 10:57 AM CDT Pulse 88 02/08/2021 10:57 AM CDT Temperature 36.9 ??C (98.5 ??F) 02/08/2021 10:57 AM C DT Respiratory Rate 14 02/08/2021 10:57 AM CDT Oxygen Saturation - - Inhaled [...] tablet TAKE 1 TABLET BY MOUTH EVERY PEG DRIVER 30 Tablet 5 12/07/2020 06/01/2021 Vascepa 1 [...] Progress Notes * Sharri Juarez RN - 02/08/2021 9:30 AM CDT Plasma exchange completed today using R and L chest BARD ports for draw and return. Used 5% Albuminas replacement fluid for a 1.0 volume exchange with a 100% fluid balance. Patient tolerated the procedure well. She left BDS department in stable condition. The next plasma exchange is scheduled for Taylor rosenthal 02/09/2021 at 1030. * Phoenix Riddle MD - 02/08/2021 9:30 AM CDT CC: ??45??yo female undergoing prophylaxis for??hypertriglyceridemic pancreatitis in the setting ofrecurrent necrotizing pancreatitis requires??plasma exchange. ?? Interval history: Patient notes a stressful weekend, but claims adherence to diet. Abdominal pain 5/10 upon presentation today. ?? Procedure note: 1.0 volume plasma exchange with 5% albumin replacement, 100% fluid balance, 2 g calcium gluconate during procedure. ??Patient tolerated the procedure without complaints or adverse [...] Postprocedure triglycerides: ??640 mg/dL 02/01/21 Preprocedure triglycerides: 2631 mg/dL 02/01/21 Postprocedure triglycerides: 1070 mg/dL 02/08/21 Preprocedure triglycerides: 4309 mg/dL 02/08/21 Postprocedure triglycerides: 1938 mg/dL ?? A&P: 1. 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 2. Continued markedly elevated triglycerides despite weekly PLEX. 3. To perform PLEX 02/09/21 and possibly 02/10/21 based on results, with a goal of triglycerides <1000 mg/dL ?? I have seen and examined the patient, reviewed pertinent notes and records, and remained immediately available throughout the procedure. ?? Phoenix Riddle MD Family Day Carer, therapeutic apheresis service [phone] documented in this encounter Plan of Treatment Upcoming Encounters Date Type Department Care Team (Late st Contact Info) Description 09/14/2024 3:00 PM CDT Office Visit [facility] Heart and Vascular - [place] [address] [place] [address] Marlys Mayer MD [address] [place], [place] [phone] documented as of this encounter Procedures Procedure Name Priority Date/Time Associated Diagnosis Comments TRIGLYCERIDE Routine 02/08/2021 11:16 AM CDT Hypertriglyceridemia TRIGLYCERIDE Routine 02/08/2021 9:23 AM CDT Hypertriglyceridemia documented in this encounter Results * (ABNORMAL) TRIGLYCERIDE (02/08/2021 11:16 AM CDT) TRIGLYCERIDE 1,938(H) <150 mg/dL 02/08/2021 12:21 PM CDT [facility] Blood Collection / Unknown 02/08/2021 11:16 AM CDT 02/08/2021 11:54 AM CDT Critical access hospital [facility] - 02/08/2021 12:21 PM CDT TRIGLYCERIDES ? mg/dL Normal ?< 150 Borderline High ?150 - 199 High ? 200 - 499 Very High ? >= 500 Based on AHA/NCEP Guidelines. Phoenix Riddle MD CHEMISTRY ORDERABLE S [facility]# [id number] 5 [place], [place] [id number] * (ABNORMAL) TRIGLYCERIDE (02/08/2021 9:23 AM CDT) TRIGLYCERIDE 4,309(H) <150 mg/dL 02/08/2021 10:12 AM CDT [facility] Blood Collection / Unknown 02/08/2021 9:23 AM CDT 02/08/2021 9:25 AM CDT Critical access hospital [facility] - 02/08/2021 10:12 AM CDT TRIGLYCERIDES ? mg/dL Normal ?< 150 Borderline High ?150 - 199 High ? 200 - 499 Very High ? >= 500 Based on AHA/NCEP Guidelines. Phoenix Riddle MD CHEMISTRY ORDERABLE S [facility]# [id number] [address] [facility] [facility] [place] [address] documented in this encounter Visit Diagnoses Diagnosis Hypertriglyceridemia- Primary Pure hyperglyceridemia documented in this encounter Administered Medications Inactive Administered Medications - up to 3 most recent administrations Medication Order MAR Action Action Date Dose Rate Site calcium GLUCONATE 2,000 mg in sodium chloride (iso-osmotic) 100 mL IVPB 2,000 mg, IV, ONE TIME ONLY, 1 dose, On Sat02/08/21 at 0930, Routine New Bag 02/08/2021 9:33 AM CDT 2,000 mg 100 m L/hr heparin, porcine (pf) 10 unit/mL IV syringe 20 Units 20 Units, IV, ONE TIME ONLY, 1 dose, On Sat02/08/21 at 0930, Routine Given 02/08/2021 10:45 AM CDT 20 Units heparin, porcine lock flush (pf) 100 unit/mL injection 500 Units 500 Units, IV, ONE TIME ONLY, 1 dose, On Sat02/08/21 at 0930, Routine Given 02/08/2021 10:45 AM CDT 500 Units heparin, porcine lock flush (pf) 100 unit/mL injection 500 Units 500 Units, IV, ONE TIME ONLY, 1 dose, On Sat02/08/21 at 0930, Routine Given 02/08/2021 10:42 AM CDT 500 Units sodium chloride flush injection 10 mL 10 mL, IV, ONE TIME ONLY, 1 dose, On Sat02/08/21 at 0930, Routine Given 02/08/2021 10:43 AM CDT 10 mL sodium chloride flush injection 10 mL 10 mL, IV, ONE TIME ONLY, 1 dose, On Sat02/08/21 at 0930, Routine Given 02/08/2021 10:45 AM CDT 10 mL sodium chloride flush injection 20 mL 20 mL, IV, ONE TIME ONLY, 1 dose, On Sat02/08/21 at 0930, Routine Given 02/08/2021 10:42 AM CDT 20 mL documented in this encounter Additional Health Concerns Assessment Noted Time PHQ-9 Depression Total Score: 1 08/11/19 21 6:30 PM CDT documented as of this encounter Care Teams Telecom Assistant Relationship Specialty Start Date End Date Guerrero Middleton PA-C PCP - General Physician Haulage Engine Operator 02/13/18 documented as of this encounter
--- OUTSIDE RECORDS SUMMARY | 2024-05-03 20:39 | XMS_ITS | Encounter Summary ---
Author Organization [facility] Address [address] Orozco: Epic Prelude ADT [place] [address] Care Team Providers Care Golf Course Patroller Name Role Phone Guerrero Middleton PA-C Primary Care Provide r Encounter Details Date Type Department Care Team (Latest Contact Info) Description 02/08/2021 Travel Social History Tobacco Use Types Packs/Day [...] often do you attend [facility] or quaker services? Never 08/21/2018 Do you belong to any clubs o r organizations such as cheondoism groups, unions, fraternal or athletic groups, or [...] [facility] [address] [place] [address] Marlys Mayer MD [address] [place] [address] documented as of this encounter Visit Diagnoses Not on filedocumented in this encounter Additional Health Concerns Assessment Noted Time PHQ-9 Depression Total Score: 1 08/11/19 21 6:30 PM CDT documented as of this encounter Care Teams Golf Course Patroller Relationship Specialty Start Date End Date Guerrero Middleton PA-C PCP - General Physician Motion Pictures Cartoonist 02/13/18 documented as of this encounter
--- OUTSIDE RECORDS SUMMARY | 2024-05-03 20:39 | XMS_ITS | Encounter Summary ---
Author Organization [facility] Address [address] Orozco: Epic Prelude ADT [place] [address] Care Team Providers Care Engineer Booster And Exhauster Name Role Phone Guerrero Middleton PA-C Primary Care Provide r Encounter Details Date Type Department Care Team (Latest Contact Info) Description 02/01/2021 Travel Social History Tobacco Use Types Packs/Day [...] week 08/21/2018 How often do you attend [facility] or orthodox services? Never 08/21/2018 Do you belong to any clubs o r organizations such as latter day groups, unions, fraternal or athletic groups, or [...] PM CDT Office Visit [facility] [address] [place] [address] Marlys Mayer MD [address] [place] [address] documented as of this encounter Visit Diagnoses Not on filedocumented in this encounter Additional Health Concerns Assessment Noted Time PHQ-9 Depression Total Score: 1 08/11/19 21 6:30 PM CDT documented as of this encounter Care Teams Engineer Booster And Exhauster Relationship Specialty Start Date End Date Guerrero Middleton PA-C PCP - General Physician Biochemistry Technologist 02/13/18 documented as of this encounter
--- OUTSIDE RECORDS SUMMARY | 2024-05-03 20:39 | XMS_ITS | Encounter Summary ---
Author Organization [facility] Address [address] [place] [address] Care Team Providers Care Luster Applicator Name Role Phone Guerrero Middleton PA-C Primary Care Provide r Encounter Details Date Type Department Care Team (Latest Contact Info) Description 05/05/2021 9:05 AM WINE STEWARD - 05/05/2021 11:59 PM [facility] Hospital Encounter [facility] Donor Services [id number] [place] [address] Guerrero Middleton PA-C [address] [place] [address] Discharge Disposition: Home or Self Care Social [...] COVID-19? No / Unsure 05/05/2021 9:01 AM WINE STEWARD documented as of this encounter Last Filed Vital Signs Vital Sign Reading Time Taken Comments Blood Pressure 131/83 05/05/2021 10:53 AM WINE STEWARD Pulse 80 05/05/2021 10:53 AM WINE STEWARD Temperature 37.3 ??C (99.2 ??F) 05/05/2021 10:[address] Respiratory Rate 18 05/05/2021 10:53 AM WINE STEWARD Oxygen Saturation - - Inhaled Oxygen Concentration [...] tablet TAKE 1 TABLET BY MOUTH EVERY PANEL WIRER 30 Tablet 5 12/07/2020 06/01/2021 Vascepa 1 [...] Progress Notes * Delroy Tristan RN - 05/05/2021 9:30 AM CST Plasma exchange completed today using R/L chest bard port for draw and return. 1.0 volume, 100% fluid balance using 5% albumin as replacement fluid completed. 2 grams calcium gluconate given intra procedure. Patient tolerated procedure well. Next procedure scheduled for 05/09/2021. STEWARD * Nicole Mondragon MD - 05/05/2021 9:30 AM CST CC: ??45??yo female undergoing prophylaxis for??hypertriglyceridemic pancreatitis in the setting ofrecurrent necrotizing pancreatitis requires??plasma exchange. ?? Interval history:?Patient reports mild chest and abdominal discomfort, which she recognizes as preceding bouts of pancreatitis. At baseline otherwise. ?? Procedure note: 1.0 volume plasma exchange [...] breathing Neuro: - Alert and Oriented ?Labs: 05/05/21 WBC 9.3 hgb 13.6 hct 37.2 PLT 222 05/05/21 preprocedure triglycerides >4425 mg/dL 05/05/21 postprocedure triglycerides 2667 mg/dL ? A&P: 1. 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 2. Continue maintenance PLEX with 1.0 volume exchange, 5% albumin replacement, 100% fluid volume, 2g calcium gluconate during procedure on a weekly basis, or more frequent based on symptoms and triglyceride levels. 3. Next procedure??scheduled??05/09/20 ?? I have seen and examined the patient, reviewed pertinent notes and records, and remained immediately available throughout the procedure. ?? Nicole Mondragon MD Automatic Spooler Operator, therapeutic apheresis service [phone] STEWARD documented in this encounter Plan of Treatment Upcoming Encounters Date Type Department Care Team (Late st Contact Info) Description 09/14/2024 3:00 PM CDT Office Visit [facility] [address] [place] [address] Marlys Mayer MD [address] [place] [address] documented as of this encounter Procedures Procedure Name Priority Date/Time Associated Diagnosis Comments TRIGLYCERIDE Routine 05/05/2021 11:03 AM WINE STEWARD Hypertriglyceridemi a CBC WITHOUT DIFFERENTIAL Routine 05/05/2021 9:40 AM WINE STEWARD Hypertriglyceridemi a TRIGLYCERIDE Routine 05/05/2021 9:38 AM WINE STEWARD Hypertriglyceridemi a documented in this encounter Results * (ABNORMAL) TRIGLYCERIDE (05/05/2021 11:03 AM WINE STEWARD) Pathologist [facility] TRIGLYCERIDE 2,667(H) <150 mg/dL 05/05/2021 11:51 AM [facility] [employer] [facility] Blood Venipuncture / Unknown 05/05/2021 11:03 AM WINE STEWARD 05/05/2021 11:03 AM WINE STEWARD [facility] [employer] [facility] - 05/05/2021 11:51 AM WINE STEWARD TRIGLYCERIDES ? mg/dL Normal ?< 150 Borderline High ?150 - 199 High ? 200 - 499 Very High ? >= 500 Based on AHA/NCEP Guidelines. Nicole Rosas MD CHEMISTRY YONI SERRANO [facility] [facility]# [id number] [address] [place] [address] * (ABNORMAL) CBC WITHOUT DIFFERENTIAL (05/05/2021 9:40 AM WINE STEWARD) Pathologist [facility] WBC 9.3 4.0 - 9.8 K/uL 05/05/2021 9:44 AM [facility] [employer] [facility] RBC 4.14 3.90 - 4.90 M/uL 05/05/2021 9:44 AM [facility] [employer] [facility] HEMOGLOBIN 13.6 11.8 - 14.8 g/dL 05/05/2021 9:44 AM [facility] [employer] [facility] HEMATOCRIT 37.2 35.5 - 44.0 % 05/05/2021 9:44 AM [facility] [employer] [facility] MCV 89.9 82.0 - 99.0 fL 05/05/2021 9:44 AM WINE STEWARD [facility] [employer] [facility] MCH 32.9(H) 27.2 - 32.6 pg 05/05/2021 9:44 AM [facility] [employer] [facility] MCHC 36.6(H) 31.5 - 35.5 g/dL 05/05/2021 9:44 AM [facility] PLATELETS 222 140 - 350 K/uL 05/05/2021 9:44 AM [facility] [employer] [facility] MPV 9.2(L) 9.3 - 12.4 fL 05/05/2021 9:44 AM [facility] [employer] [facility] RDW 14.4 11.5 - 14.5 % 05/05/2021 9:44 AM [facility] [employer] [facility] RDW-STDEV 48.0 37.1 - 48.7 fL 05/05/2021 9:44 AM [facility] [employer] [facility] Blood Venipuncture / Unknown 05/05/2021 9:40 AM WINE STEWARD 05/05/2021 9:40 AM WINE STEWARD Nicole Rosas MD HEMATOLOGY ORD ERABLES [facility]# [id number] [address] [facility] [place] [address] * (ABNORMAL) TRIGLYCERIDE (05/05/2021 9:38 AM WINE STEWARD) Pathologist [facility] TRIGLYCERIDE >4,425(H) <150 mg/dL 05/05/2021 2:21 PM WINE STEWARD [facility] [employer] [facility] Blood 05/05/2021 9:38 AM WINE STEWARD 05/05/2021 9:40 AM WINE STEWARD Narrative [facility] [employer] [facility] - 05/05/2021 2:21 PM WINE STEWARD TRIGLYCERIDES ? mg/dL Normal ?< 150 Borderline High ?150 - 199 High ? 200 - 499 Very High ? >= 500 Based on AHA/NCEP Guidelines. Phoenix Riddle MD CHEMISTRY ORDERABLE S [facility]# [id number] [address] [place] [address] documented in this encounter Visit Diagnoses Diagnosis Hypertriglyceridemia- Primary Pure hyperglyceridemia documented in this encounter Administered Medications Inactive Administered Medications - up to 3 most recent administrations Medication Order MAR Action Action Date Dose Rate Site calcium GLUCONATE 2,000 mg in sodium chloride (iso-osmotic) 100 mL IVPB 2,000 mg, IV, ONE TIME ONLY, 1 dose, On Sat05/05/21 at 0930, Routine New Bag 05/05/2021 9:11 AM WINE STEWARD 2,000 mg 50 mL/hr heparin, porcine (pf) 10 unit/mL IV syringe 20 Units 20 Units, IV, ONE TIME ONLY, 1 dose, On Sat05/05/21 at 0930, Routine Given 05/05/2021 10:37 AM WINE STEWARD 20 Units heparin, porcine lock flush (pf) 100 unit/mL injection 500 Units 500 Units, IV, ONE TIME ONLY, 1 dose, On Sat05/05/21 at 0930, Routine Given 05/05/2021 10:43 AM WINE STEWARD 500 Units heparin, porcine lock flush (pf) 100 unit/mL injection 500 Units 500 Units, IV, ONE TIME ONLY, 1 dose, On Sat05/05/21 at 1045, Routine Given 05/05/2021 10:41 AM WINE STEWARD 500 Units sodium chloride flush injection 10 mL 10 mL, IV, ONE TIME ONLY, 1 dose, On Sat05/05/21 at 0930, Routine Given 05/05/2021 10:36 AM WINE STEWARD 10 mL sodium chloride flush injection 10 mL 10 mL, IV, ONE TIME ONLY, 1 dose, On Sat05/05/21 at 0930, Routine Given 05/05/2021 10:42 AM WINE STEWARD 10 mL sodium chloride flush injection 20 mL 20 mL, IV, ONE TIME ONLY, 1 dose, On Sat05/05/21 at 1045, Routine Given 05/05/2021 10:40 AM WINE STEWARD 20 mL documented in this encounter Additional Health Concerns Assessment Noted Time PHQ-9 Depression Total Score: 1 08/11/19 21 6:30 PM CDT documented as of this encounter Care Teams Luster Applicator Relationship Specialty Start Date End Date Guerrero Middleton PA-C PCP - General Physician Rn Medicare 02/13/18 documented as of this encounter
--- OUTSIDE RECORDS SUMMARY | 2024-05-03 20:39 | XMS_ITS | Encounter Summary ---
Author Organization [facility] Address [address] Orozco: Epic Prelude ADT [place] [address] Care Team Providers Care Ladle Watcher Name Role Phone Guerrero Middleton PA-C Primary Care Provide r Encounter Details Date Type Department Care Team (Latest Contact Info) Description 04/10/2021 Travel Social History Tobacco Use Types Packs/Day [...] you attend [facility] or nondenominational services? Never 08/21/2018 [...] COVID-19? No / Unsure 04/10/2021 9:25 AM RECEIVABLES SPECIALIST documented as of this encounter Plan of Treatment Upcoming Encounters Date Type Department Care Team (Late st Contact Info) Description 09/14/2024 3:00 PM CDT Office Visit [facility] [address] [place] [address] Marlys Mayer MD [address] [place], [place] [phone] documented as of this encounter Visit Diagnoses Not on filedocumented in this encounter Additional Health Concerns Assessment Noted Time PHQ-9 Depression Total Score: 1 08/11/19 21 6:30 PM CDT documented as of this encounter Care Teams Ladle Watcher Relationship Specialty Start Date End Date Guerrero Middleton PA-C PCP - General Physician Landscaping Supervisor 02/13/18 documented as of this encounter
--- OUTSIDE RECORDS SUMMARY | 2024-05-03 20:39 | XMS_ITS | Encounter Summary ---
Author Organization [facility] Address [address] Orozco: Epic Prelude ADT [place] [address] Care Team Providers Care Nike Athlete Name Role Phone Guerrero Middleton PA-C Primary Care Provide r Encounter Details Date Type Department Care Team (Latest Contact Info) Description 01/26/2021 Travel Social History Tobacco Use Types Packs/Day [...] week 08/21/2018 How often do you attend [facility] or pentecostalism services? Never 08/21/2018 Do you belong to [...] have Coronavirus / COVID-19? No / Unsure 01/26/2021 2:07 PM CDT documented as of this encounter Plan of Treatment Upcoming Encounters Date Type Department Care Team (Late st Contact Info) Description 09/14/2024 3:00 PM CDT Office Visit [facility] [address] [place] [address] Marlys Mayer MD [address] [place] [address] documented as of this encounter Visit Diagnoses Not on filedocumented in this encounter Additional Health Concerns Assessment Noted Time PHQ-9 Depression Total Score: 1 08/11/19 21 6:30 PM CDT documented as of this encounter Care Teams Nike Athlete Relationship Specialty Start Date End Date Guerrero Middleton PA-C PCP - General Physician Rib Cloth Knitter 02/13/18 documented as of this encounter
--- OUTSIDE RECORDS SUMMARY | 2024-05-03 20:39 | XMS_ITS | Encounter Summary ---
Author Organization [facility] Address [address] [place] [address] Care Team Providers Care Correctional Officer Chief Name Role Phone Guerrero Middleton PA-C Primary Care Provide r Reason for Visit * Reason Comments Medication Refill Encounter Details Date Type Department Care Team (Late st Contact Info) Description 03/29/2021 Refill [facility] [address] [place] [address] Prudence Gates MD [address] [place] [address] Social History Tobacco Use Types Packs/Day Years [...] often do you attend chur ch or jew services? Never 08/21/2018 Do you belong to [...] COVID-19? No / Unsure 03/20/2021 9:28 AM CALCULUS TEACHER documented as of this encounter Miscellaneous Notes * Telephone Encounter - Lexus Iyer - 03/30/2021 10:24 AM CST ANGELES: 11/09/2020 NOV: 04/19/2021 ULUS TEACHER documented in this encounter Plan of Treatment Upcoming Encounters Date Type Department Care Team (Late st Contact Info) Description 09/14/2024 3:00 PM CDT Office Visit [facility] [address] [place] [address] Marlys Mayer MD [address] [place] [address] documented as of this encounter Visit Diagnoses Not on filedocumented in this encounter Additional Health Concerns Assessment Noted Time PHQ-9 Depression Total Score: 1 08/11/19 21 6:30 PM CDT documented as of this encounter Care Teams Correctional Officer Chief Relationship Specialty Start Date End Date Guerrero Middleton PA-C PCP - General Physician Supervisor Customer Complaint Service 02/13/18 documented as of this encounter
--- OUTSIDE RECORDS SUMMARY | 2024-05-03 20:39 | XMS_ITS | Encounter Summary ---
Author Organization [facility] Address [address] Orozco: Epic Prelude ADT [place] [address] Care Team Providers Care Telegrapher Agent Name Role Phone Guerrero Middleton PA-C Primary Care Provide r Encounter Details Date Type Department Care Team (Latest Contact Info) Description 04/05/2021 Travel Social History Tobacco Use Types Packs/Day [...] week 08/21/2018 How often do you attend [facility] or protestant services? Never 08/21/2018 Do you [...] COVID-19? No / Unsure 04/05/2021 9:16 AM PUBLICATIONS SALES REPRESENTATIVE documented as of this encounter Plan of Treatment Upcoming Encounters Date Type Department Care Team (Late st Contact Info) Description 09/14/2024 3:00 PM CDT Office Visit [facility] [address] [place] [address] Marlys Mayer MD [address] [place], [place] [phone] documented as of this encounter Visit Diagnoses Not on filedocumented in this encounter Additional Health Concerns Assessment Noted Time PHQ-9 Depression Total Score: 1 08/11/19 21 6:30 PM CDT documented as of this encounter Care Teams Telegrapher Agent Relationship Specialty Start Date End Date Guerrero Middleton PA-C PCP - General Physician Data Migration Consultant 02/13/18 documented as of this encounter
--- OUTSIDE RECORDS SUMMARY | 2024-05-03 20:39 | XMS_ITS | Encounter Summary ---
Author Organization [facility] Address [address] [place] [address] Care Team Providers Care Barrel Raiser Name Role Phone Guerrero Middleton PA-C Primary Care Provide r Reason for Visit * Auth/Cert Specialty Diagnoses / Procedures Referred By Conthardik t Referred To Contact Laboratory [address] [address] Referral ID Status Reason Start Date Expiration Date Visits Re quested Visits Authorized [id number] 1 1 Encounter Details Date Type Department Care Team (Latest Contact Info) Description 03/01/2021 9:30 AM CDT - 03/01/2021 11:59 PM CDT Hospital Encounter [facility] [address] [place] [phone] Nicole Rosas MD [address] [place] [address] Discharge Disposition: Home or Self Care [...] often do you attend chur ch or rastafarian services? Never 08/21/2018 Do you [...] Sign Reading Time Taken Comments Blood Pressure 114/79 03/01/2021 11:07 AM CDT Pulse 86 03/01/2021 11:07 AM CDT Temperature 36.9 ??C (98.4 ??F) 03/01/2021 11:07 AM C DT Respiratory Rate 16 03/01/2021 11:07 AM CDT Oxygen Saturation - - Inhaled [...] tablet TAKE 1 TABLET BY MOUTH EVERY DIRECTOR FINANCIAL SYSTEMS 30 Tablet 5 12/07/2020 06/01/2021 Vascepa 1 [...] Progress Notes * Puja Paz RN - 03/01/2021 9:30 AM CDT Plasma exchange completed using R/L bard ports. 1.0 volume, 100% fluid balance with 5% albumin as replacement. Pt tolerated procedure well. Pt left BDS in stable condition. Next procedure scheduled for 03/15/2021 at 0930. * Nicole Mondragon MD - 03/01/2021 9:30 AM CDT CC: ??45??yo female undergoing prophylaxis for??hypertriglyceridemic pancreatitis in the setting ofrecurrent necrotizing pancreatitis requires??plasma exchange. ?? Interval history:??Patient is without complaint. She is planning to receive COVID and flu vaccinations in the next day or two, with the next PLEX scheduled for 2 weeks from today. She will call the donor room for an earlier procedure if necessary based on her symptoms. ?? Procedure note: 1.0 volume plasma exchange [...] hbg 12.2 hct 37.8 PLT 249 ?? 02/08/21 Preprocedure triglycerides: ??4309 mg/dL 02/08/21 Postprocedure triglycerides: ??1938 mg/dL 02/09/21 Preprocedure triglycerides: ??2041 mg/dL 02/09/21 Postprocedure triglycerides: ??704 mg/dL 02/13/21 Preprocedure triglycerides: ??502 mg/dL 02/13/21 Postprocedure triglycerides: ??340 mg/dL 02/22/21 Preprocedure triglycerides: 1,640 mg/dL 02/22/21 Postprocedure triglycerides: 592 mg/dL 03/01/21 Preprocedure triglycerides: >4,425 mg/dL 03/01/21 Postprocedure triglycerides: 1,832 mg/dL ?? A&P: 1. 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 2.??Good response to??most recent course of PLEX 3. Continue maintenance PLEX with 1.0 volume exchange, 5% albumin replacement, 100% fluid volume, 2g calcium gluconate during procedure on a weekly basis, or more frequent based on symptoms and triglyceride levels. 4. Next procedure scheduled week of 03/13/21 ?? I have seen and examined the patient, reviewed pertinent notes and records, and remained immediately available throughout the procedure. ?? Nicole Mondragon MD Meat Selector, therapeutic apheresis service [phone] documented in this encounter Plan of Treatment Upcoming Encounters Date Type Department Care Team (Late st Contact Info) Description 09/14/2024 3:00 PM CDT Office Visit [facility] Heart and Vascular - [place] [address] [place] [address] Marlys Mayer MD [address] [place] [address] documented as of this encounter Procedures Procedure Name Priority Date/Time Associated Diagnosis Comments TRIGLYCERIDE Routine 03/01/2021 11:03 AM CDT Hypertriglyceridemia TRIGLYCERIDE Routine 03/01/2021 9:55 AM CDT Chronic pancreatitis Moderate protein-calorie malnutrition [...] in this encounter Results * (ABNORMAL) TRIGLYCERIDE (03/01/2021 11:03 AM CDT) TRIGLYCERIDE 1,832(H) <150 mg/dL 03/01/2021 12:06 PM CDT [facility] Blood Venipuncture / Unknown 03/01/2021 11:03 AM CDT 03/01/2021 11:06 AM CDT [facility] [employer] [facility] - 03/01/2021 12:06 PM CDT TRIGLYCERIDES ? mg/dL Normal ?< 150 Borderline High ?150 - 199 High ? 200 - 499 Very High ? >= 500 Based on AHA/NCEP Guidelines. Nicole SERRANO Performing Organization Address [facility] Co de Phone Number [facility] [employer] [facility] [id number] [address] [place] [phone] * (ABNORMAL) TRIGLYCERIDE (03/01/2021 9:55 AM CDT) TRIGLYCERIDE >4,425(H) <150 mg/dL 03/01/2021 11:37 AM CDT [facility] [employer] [facility] Comment:Verified by repeat a nalysis. Blood Venipuncture / Unknown 03/01/2021 9:55 AM CDT 03/01/2021 9:56 AM CDT [facility] [employer] [facility] - 03/01/2021 11:37 AM CDT TRIGLYCERIDES ? mg/dL Normal ?< 150 Borderline High ?150 - 199 High ? 200 - 499 Very High ? >= 500 Based on AHA/NCEP Guidelines. Nicole SERRANO Performing Organization Address [facility] Co de Phone Number [facility] [employer] [facility]# [id number] [address] [place] [address] documented in this encounter Visit Diagnoses Diagnosis [...] IV, ONE TIME ONLY, 1 dose, On Sat03/01/21 at 0930, Routine New Bag 03/01/2021 10:02 AM CDT 2,000 mg 100 mL/hr heparin, porcine (pf) 10 unit/mL IV syringe 20 Units 20 Units, IV, ONE TIME ONLY, 1 dose, On Sat03/01/21 at 0930, Routine, Please tube to station [id number]. Given 03/01/2021 10:59 AM CDT 20 Units heparin, porcine lock flush (pf) 100 unit/mL injection 500 Units 500 Units, IV, ONE TIME ONLY, 1 dose, On Sat03/01/21 at 0930, Routine, Please tube to station 516. Given 03/01/2021 10:59 AM CDT 500 Units heparin, porcine lock flush (pf) 100 unit/mL injection 500 Units 500 Units, IV, ONE TIME ONLY, 1 dose, On Sat03/01/21 at 0930, Routine, Please tube to station 516. Given 03/01/2021 11:01 AM CDT 500 Units sodium chloride flush injection 10 mL 10 mL, IV, ONE TIME ONLY, 1 dose, On Sat03/01/21 at 0930, Routine Given 03/01/2021 10:58 AM CDT 10 mL sodium chloride flush injection 10 mL 10 mL, IV, ONE TIME ONLY, 1 dose, On Sat03/01/21 at 0930, Routine Given 03/01/2021 10:59 AM CDT 10 mL sodium chloride flush injection 20 mL 20 mL, IV, ONE TIME ONLY, 1 dose, On Sat03/01/21 at 0930, Routine Given 03/01/2021 11:00 AM CDT 20 mL documented in this encounter Additional Health Concerns Assessment Noted Time PHQ-9 Depression Total Score: 1 08/11/19 21 6:30 PM CDT documented as of this encounter Care Teams Barrel Raiser Relationship Specialty Start Date End Date Guerrero Middleton PA-C PCP - General Physician Screen And Cyclone Repairer 02/13/18 documented as of this encounter
--- OUTSIDE RECORDS SUMMARY | 2024-05-03 20:39 | XMS_ITS | Encounter Summary ---
Author Organization [facility] Address [address] [place] [address] Care Team Providers Care Educational Aid Name Role Phone Guerrero Middleton PA-C Primary Care Provide r Encounter Details Date Type Department Care Team (Latest Contact Info) Description 02/13/2021 11:19 AM CDT - 02/13/2021 11:59 PM CDT Hospital Encounter [facility] Services [address] [phone] Discharge Disposition: Home or Self Care Social [...] Sign Reading Time Taken Comments Blood Pressure 101/65 02/13/2021 12:52 PM CDT Pulse 88 02/13/2021 12:52 PM CDT Temperature 36.7 ??C (98 ??F) 02/13/2021 12:52 PM CDT Respiratory Rate 16 02/13/2021 12:52 PM CDT Oxygen Saturation - - Inhaled [...] tablet TAKE 1 TABLET BY MOUTH EVERY STOCKROOM COORDINATOR 30 Tablet 5 12/07/2020 06/01/2021 Vascepa 1 [...] Progress Notes * Sharri Juarez RN - 02/13/2021 12:00 PM CDT Plasma exchange #1 completed today using R and L chest BARD ports for draw and return. Used 5% Albumin as replacement fluid for a 1.0 volume exchange with a 100% fluid balance. Patient tolerated the procedure well. She left BDS department in stable condition with . The next procedure is scheduled for Saturday02/22/2021. * Phoenix Riddle MD - 02/13/2021 12:00 PM CDT CC: ??45??yo female undergoing prophylaxis for??hypertriglyceridemic pancreatitis in the setting ofrecurrent necrotizing pancreatitis requires??plasma exchange. ?? Interval history:??Patient is without complaint, abdominal pain / (baseline), states she has hada reduction in stress. ?? Procedure note: 1.0 [...] Postprocedure triglycerides: ??1938 mg/dL 02/09/21 Preprocedure triglycerides: 2041 mg/dL 02/09/21 Postprocedure triglycerides: 704 mg/dL 02/13/21 Preprocedure triglycerides: 502 mg/dL 02/13/21 Posprocedure triglycerides: 340 mg/dL ?? A&P: 1. 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 2.??Good response to most recent course of PLEX, triglycerides down to 340 mg/dL 3. Continue maintenance PLEX with 1.0 volume exchange, 5% albumin replacement, 100% fluid volume, 2g calcium gluconate during procedure on a weekly basis, or more frequent based on symptoms and triglyceride levels. 4. Next procedure to be performed 02/22/2021 ?? I have seen and examined the patient, reviewed pertinent notes and records, and remained immediately available throughout the procedure. ?? Phoenix Riddle MD Senior Technical Writer, therapeutic apheresis service [phone] documented in this encounter Plan of Treatment Upcoming Encounters Date Type Department Care Team (Late st Contact Info) Description 09/14/2024 3:00 PM CDT Office Visit [facility] Heart and Vascular - [place] [address] [place] [phone] Marlys Mayer MD [address] [place] [address] documented as of this encounter Procedures Procedure Name Priority Date/Time Associated Diagnosis Comments TRIGLYCERIDE Routine 02/13/2021 1:05 PM CDT Hypertriglyceridemi a CBC WITHOUT DIFFERENTIAL Routine 02/13/2021 11:31 AM CDT Hypertriglyceridemi a TRIGLYCERIDE Routine 02/13/2021 11:30 AM CDT Hypertriglyceridemi a documented in this encounter Results * (ABNORMAL) TRIGLYCERIDE (02/13/2021 1:05 PM CDT) TRIGLYCERIDE 340(H) <150 mg/dL 02/13/2021 1:39 PM CDT [facility] [employer] [facility] Blood Collection / Unknown 02/13/2021 1:05 PM CDT 02/13/2021 1:08 PM CDT [facility] [employer] [facility] - 02/13/2021 1:39 PM CDT TRIGLYCERIDES ? mg/dL Normal ?< 150 Borderline High ?150 - 199 High ? 200 - 499 Very High ? >= 500 Based on AHA/NCEP Guidelines. Phoenix Riddle MD CHEMISTRY ORDERABLE S [facility] [employer] [facility]# [id number] [address] [facility] [place] [address] * (ABNORMAL) CBC WITHOUT DIFFERENTIAL (02/13/2021 11:31 AM CDT) Pathologist [facility] WBC 6.9 4.0 - 9.8 K/uL 02/13/2021 11:43 AM CDT [facility] RBC 4.14 3.90 - 4.90 M/uL 02/13/2021 11:43 AM CDT [facility] HEMOGLOBIN 12.2 11.8 - 14.8 g/dL 02/13/2021 11:43 AM CDT [facility] LABORATORY SERVICES - [facility] HEMATOCRIT 37.8 35.5 - 44.0 % 02/13/2021 11:43 AM CDT [facility] LABORATORY SERVICES - . [facility] MCV 91.3 82.0 - 99.0 fL 02/13/2021 11:43 AM CDT [facility]ORATORY SERVICES - [facility] MCH 29.5 27.2 - 32.6 pg 02/13/2021 11:43 AM CDT [facility] LABORATORY SERVICES - [facility] MCHC 32.3 31.5 - 35.5 g/dL 02/13/2021 11:43 AM CDT [facility] LABORATORY SERVICES - [facility] PLATELETS 249 140 - 350 K/uL 02/13/2021 11:43 AM CDT [facility] LABORATORY SERVICES - . [facility] MPV 8.9(L) 9.3 - 12.4 fL 02/13/2021 11:43 AM CDT [facility] LABORATORY SERVICES - [facility] RDW 15.3(H) 11.5 - 14.5 % 02/13/2021 11:43 AM CDT [facility] LABORATORY SERVICES - [facility] RDW-STDEV 51.0(H) 37.1 - 48.7 fL 02/13/2021 11:43 AM CDT [facility] LABORATORY SERVICES - [facility] Blood Collection / Unknown 02/13/2021 11:31 AM CDT 02/13/2021 11:32 AM CDT Phoenix Riddle MD HEMATOLOGY ORDERABL ES [facility] [employer] [facility] [id number] [address] [facility] [place] [address] * (ABNORMAL) TRIGLYCERIDE (02/13/2021 11:30 AM CDT) TRIGLYCERIDE 502(H) <150 mg/dL 02/13/2021 12:07 PM CDT [facility]ORATORY SERVICES - [facility] Blood Collection / Unknown 02/13/2021 11:30 AM CDT 02/13/2021 11:32 AM CDT Narrative [facility]ORATORY SERVICES - [facility] - 02/13/2021 12:07 PM CDT TRIGLYCERIDES ? mg/dL Normal ?< 150 Borderline High ?150 - 199 High ? 200 - 499 Very High ? >= 500 Based on AHA/NCEP Guidelines. Phoenix Riddle MD CHEMISTRY ORDERABLE S [facility] LABORATORY SERVICES - [facility]# [id number] [address] [place] [address] documented in this encounter Visit Diagnoses Diagnosis Hypertriglyceridemia- Primary Pure hyperglyceridemia Mixed hyperlipidemia documented in this encounter Administered Medications Inactive Administered Medications - up to 3 most recent administrations Medication Order MAR Action Action Date Dose Rate Site calcium GLUCONATE 2,000 mg in sodium chloride (iso-osmotic) 100 mL IVPB 2,000 mg, IV, INTRA-PROCEDURE ONCE, 1 dose, Starting on Sat02/13/21 at 1200, Until Sat02/13/21 at 1247, Routine New Bag 02/13/2021 11:41 AM CDT 2,000 mg 90.91 mL/hr heparin, porcine (pf) 10 unit/mL IV syringe 20 Units 20 Units, IV, ONE TIME ONLY, 1 dose, On Sat02/13/21 at 1200, Routine Given 02/13/2021 12:52 PM CDT 20 Units heparin, porcine lock flush (pf) 100 unit/mL injection 500 Units 500 Units, IV, ONE TIME ONLY, 1 dose, On Sat02/13/21 at 1200, Routine Given 02/13/2021 12:53 PM CDT 500 Units heparin, porcine lock flush (pf) 100 unit/mL injection 500 Units 500 Units, IV, ONE TIME ONLY, 1 dose, On Sat02/13/21 at 1200, Routine Given 02/13/2021 12:51 PM CDT 500 Units sodium chloride flush injection 10 mL 10 mL, IV, ONE TIME ONLY, 1 dose, On Sat02/10/21 at 1500, Routine Given 02/13/2021 12:52 PM CDT 10 mL sodium chloride flush injection 10 mL 10 mL, IV, ONE TIME ONLY, 1 dose, On 02/13/21 at 1200, Routine Given 02/13/2021 12:52 PM CDT 10 mL sodium chloride flush injection 20 mL 20 mL, IV, ONE TIME ONLY, 1 dose, On 02/10/21 at 1500, Routine Given 02/13/2021 12:51 PM CDT 20 mL documented in this encounter Additional Health Concerns Assessment Noted Time PHQ-9 Depression Total Score: 1 08/11/19 21 6:30 PM CDT documented as of this encounter Care Teams Educational Aid Relationship Specialty Start Date End Date Guerrero Middleton PA-C PCP - General Physician Cotton Ball Bagger 02/13/18 documented as of this encounter
--- OUTSIDE RECORDS SUMMARY | 2024-05-03 20:40 | XMS_ITS | Encounter Summary ---
Author Organization [facility] Address [address] [place] [address] Care Team Providers Care Outcomes Manager Name Role Phone Guerrero Middleton PA-C Primary Care Provide r Reason for Visit * Reason Comments Erroneous encounter-disregard Encounter Details Date Type Department Care Team (Late st Contact Info) Description 11/09/2020 9:00 AM CDT Office Visit [facility] Endocrinology [address] [place] [address] Uncontrolled type 2 diabetes mellitus with insulin therapy (Primary Dx) Social History Tobacco Use Types [...] often do you attend chur ch or restoration services? Never 08/21/2018 Do you belong to any clubs o r organizations such as uatsdin groups, unions, fraternal or athletic groups, or [...] have Coronavirus / COVID-19? No / Unsure 11/09/2020 8:31 AM CDT documented as of this encounter Progress Notes * Shira Olivo RN - 11/09/2020 1:36 PM CDT Error see chart note documented in this encounter Plan of Treatment Upcoming Encounters Date Type Department Care Team (Late st Contact Info) Description 09/14/2024 3:00 PM CDT Office Visit [facility] Heart and Vascular - [facility] [address] [place] [address] Marlys Mayer MD [address] [place] [address] documented as of this encounter Results * (ABNORMAL) BASIC METABOLIC PANEL (11/09/2020 9:59 AM CDT) SODIUM 134(L) 136 - 145 mmol/L 11/09/2020 11:02 AM T [employer] [facility] POTASSIUM 4.0 3.5 - 5.0 mmol/L 11/09/2020 11:02 AM T [employer] [facility] CHLORIDE 99 98 - 107 mmol/L 11/09/2020 11:02 AM [facility] [employer] [facility] - [facility] CO2 21(L) 22 - 29 mmol/L 11/09/2020 11:02 AM [employer] [facility]ATORY [facility] - [facility] CALCIUM 8.6 8.6 - 10.2 mg/dL 11/09/2020 11:02 AM T [employer] [facility] BUN 9 6 - 20 mg/dL 11/09/2020 11:02 AM T [employer] [facility]ORY [facility] - [facility] CREATININE 0.39(L) 0.51 - 0.95 mg/dL 11/09/2020 11:02 AM [facility] [employer] LABORATORY SERVICES - [facility] GLUCOSE 182(H) 74 - 99 mg/dL 11/09/2020 11:02 AM [employer] LABORATORY SERVICES - . [facility] GFR >60 mL/min/1.7 3 sq meter 11/09/2020 11:02 AM [employer] [facility] - . [facility] Comment: eGFR has not been validated for use in the elderly (> 70 years of age), women, patients with serious co-morbid conditions, or persons with extremes of body size or muscle mass and should also be interpreted with caution in patients with acute kidney failure, dialysis dependent patients, patients reporting exceptional dietary intake (e.g. vegetarian diet, high protein diets, creatine supplementation), and patients with severe liver disease. Based on National Kidney Disease Education Program If patient is , please refer to the GFR result. GFR, >60 mL/min/1.7 3 sq meter 11/09/2020 11:02 AM CDT [facility] LABORATORY SERVICES - [facility] ANION GAP 14 8 - 16 mmol/L 11/09/2020 11:02 AM CDT [facility] LABORATORY SERVICES - [facility] Blood Venipuncture / Unknown 11/09/2020 9:59 AM CDT 11/09/2020 10:26 AM CDT Prudence Gates MD CHEMISTRY ORDERAB LES [facility] LABORATORY SERVICES [facility] CLIA# [id number] [address] [place] [place] [address] documented in this encounter Visit Diagnoses Diagnosis Uncontrolled type 2 diabetes mellitus with insulin therapy- Primary Type II or unspecified type diabetes mellitus without mention of complication, uncontrolled documented in this encounter Additional Health Concerns Assessment Noted Time PHQ-9 Depression Total Score: 1 08/11/19 21 6:30 PM CDT documented as of this encounter Care Teams Outcomes Manager Relationship Specialty Start Date End Date Guerrero Middleton PA-C PCP - General Physician Merchandise Buyer 02/13/18 documented as of this encounter
--- OUTSIDE RECORDS SUMMARY | 2024-05-03 20:40 | XMS_ITS | Encounter Summary ---
Author Organization [facility] Address [address] [place] [address] Care Team Providers Care Licensed Prosthetist Name Role Phone Guerrero Middleton PA-C Primary Care Provide r Reason for Visit * Reason Onset Date Comments Smoking Cessation 09/15/2020 Encounter Details Date Type Department Care Team (Late st Contact Info) Description 09/15/2020 Telephone [facility] Pulmonary Rehab [address] [place] [address] Erin Prince, [employer]OX [place]ING UPHOLSTERER Smoking Cessation Social History Tobacco Use Types Packs/Day Years [...] have Coronavirus / COVID-19? No / Unsure 09/15/2020 9:29 AM CDT documented as of this encounter Miscellaneous Notes * Telephone Encounter - Kelsey Davey RN - 10/05/2020 3:17 PM CDT [facility] to [place]:Left a second message regarding our available smoking cessation options here at [facility]. Encouraged patient to call if interested. I will no longer follow * Telephone Encounter - Kelsey Davey RN - 09/22/2020 2:01 PM CDT [facility] Road to [place]:Left message regarding our available smoking cessation options here at [facility]. Encouraged patient to call if interested * Telephone Encounter - Erin Prince RCP - 09/15/2020 10:23 AM CDT Smoking cessation order received from . Information mailed to patient. documented in this encounter Plan of Treatment Upcoming Encounters Date Type Department Care Team (Late st Contact [facility]) Description 09/14/2024 3:00 PM CDT Office Visit [facility] Heart and Vascular - [facility] [place] [address] [place] [address] Marlys Mayer MD [address] [place] [address] documented as of this encounter Visit Diagnoses Not on filedocumented in this encounter Additional Health Concerns Assessment Noted Time PHQ-9 Depression Total Score: 1 08/11/19 21 6:30 PM CDT documented as of this encounter Care Teams Licensed Prosthetist Relationship Specialty Start Date End Date Guerrero Middleton PA-C PCP - General Physician Sandblast Operator 02/13/18 documented as of this encounter
--- OUTSIDE RECORDS SUMMARY | 2024-05-03 20:40 | XMS_ITS | Encounter Summary ---
Author Organization [facility] Address [address] [place] [address] Care Team Providers Care Transit Vehicle Inspector Name Role Phone Guerrero Middleton PA-C Primary Care Provide r Reason for Visit * Reason Comments Medication Refill Encounter Details Date Type Department Care Team (Late st Contact Info) Description 10/28/[address] [facility] Endocrinology [address] [place] [address] Prudence Gates MD [address] [place] [address] Social History Tobacco Use Types Packs/Day Years [...] often do you attend chur ch or orthodoxy services? Never 08/21/2018 Do you belong to [...] have Coronavirus / COVID-19? No / Unsure 10/12/2020 9:21 AM CDT documented as of this encounter Miscellaneous Notes * Telephone Encounter - Sylvia France - 11/01/2020 8:22 AM CDT Trisha:09/15/20 Nov:11/09/20 documented in this encounter Plan of Treatment Upcoming Encounters Date Type Department Care Team (Late st Contact Info) Description 09/14/2024 3:00 PM CDT Office Visit [facility] [address] [place] [address] Marlys Mayer MD [address] [place] [address] documented as of this encounter Visit Diagnoses Not on filedocumented in this encounter Additional Health Concerns Assessment Noted Time PHQ-9 Depression Total Score: 1 08/11/19 21 6:30 PM CDT documented as of this encounter Care Teams Transit Vehicle Inspector Relationship Specialty Start Date End Date Guerrero Middleton PA-C PCP - General Physician Construction Engineer 02/13/18 documented as of this encounter
--- OUTSIDE RECORDS SUMMARY | 2024-05-03 20:40 | XMS_ITS | Encounter Summary ---
Author Organization [facility] Address [address] [place] [address] Care Team Providers Care Plan Rep Name Role Phone Guerrero Middleton PA-C Primary Care Provide r Encounter Details Date Type Department Care Team (Latest Contact Info) Description 12/07/2020 9:30 AM CDT - 12/07/2020 11:59 PM CDT Hospital Encounter [facility] Donor Services [address] [address] Alize Arteaga MD NO ADDRESS ON FILE Nicole Rosas MD [address] [place] [address] Discharge Disposition: Home or Self Care [...] often do you attend chur ch or baptist services? Never 08/21/2018 Do you [...] have Coronavirus / COVID-19? No / Unsure 12/07/2020 9:40 AM CDT documented as of this encounter Last Filed Vital Signs Vital Sign Reading Time Taken Comments Blood Pressure 121/83 12/07/2020 11:31 AM CDT Pulse 89 12/07/2020 11:31 AM CDT Temperature 36.9 ??C (98.4 ??F) 12/07/2020 11:31 AM C DT Respiratory Rate 16 12/07/2020 11:31 AM CDT Oxygen Saturation - - Inhaled [...] tablet TAKE 1 TABLET BY MOUTH EVERY HEALTH PROMOTER 30 Tablet 5 12/07/2020 06/01/2021 Vascepa 1 [...] Progress Notes * Puja Paz RN - 12/07/2020 9:30 AM CDT Plasma exchange completed using L bard port and R AC peripheral access. 1.0 Volume, 100% fluid balance using 5% albumin as replacement fluid. Pt tolerated the procedure well. R bard port blood flow reestablished after alteplase instilled. Next procedure scheduled for 12/28/2020. * Nicole Mondragon MD - 12/07/2020 9:30 AM CDT CC: ??45??yo female undergoing prophylaxis for??hypertriglyceridemic pancreatitis in the setting of?recurrent necrotizing pancreatitis requires??plasma exchange. ?? Interval history:??Patient feels??about at baseline. ??No acute complaints at this time. Reports left chest port is turning and slightly uncomfortable but tolerable. Reports feeling not so great in the fourth week before scheduled PLEX and would like to change from every fourth week to every third. ?? 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 General Appearance: - Well nourished - In no acute distress Skin: - Inspection: No rashes evident - R??and L??chest port sites??well healed with pink scar Respiratory: - Unlabored breathing Neuro: - Alert and Oriented x??4 - Normal Affect ?Labs: 11/09 WBC??9.3, hemoglobin 14.2, hematocrit 42.1, platelets??254 Preprocedure triglycerides??3,252 ?? A&P: 1. 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 ?? 3. Plan to see patient?in 3 weeks for her next procedure.? I have seen and examined the patient, reviewed pertinent notes and records, and remained immediately available throughout the procedure. ?? Nicole Mondragon MD [facility] Sander, therapeutic apheresis service [phone] ?? Procedure??notes: R bard port without blood return; Cathflo instilled. Left bard port and R AC usedfor used for procedure. ??Patient tolerated procedure well. Blood return re-established in R bard port. documented in this encounter Plan of Treatment Upcoming Encounters Date Type Department Care Team (Late st Contact Info) Description 09/14/2024 3:00 PM CDT Office Visit [facility] Heart and Vascular - [facility] [address] [place] [address] Marlys Mayer MD [address] [place], [place] [id number] documented as of this encounter Procedures Procedure Name Priority Date/Time Associated Diagnosis Comments TRIGLYCERIDE Routine 12/07/2020 10:00 AM CDT Hypertriglyceridemia documented in this encounter Results * (ABNORMAL) TRIGLYCERIDE (12/07/2020 10:00 AM CDT) TRIGLYCERIDE 3,252(H) <150 mg/dL 12/07/2020 11:11 AM CDT [facility] Blood Venipuncture / Unknown 12/07/2020 10:00 AM CDT 12/07/2020 10:18 AM CDT Narrative [facility] LABORATORY [facility] - 12/07/2020 11:11 AM CDT TRIGLYCERIDES ? mg/dL Normal ?< 150 Borderline High ?150 - 199 High ? 200 - 499 Very High ? >= 500 Based on AHA/NCEP Guidelines. Nicole Rosas MD CHEMISTRY YONI SERRANO [facility] [employer] [facility] CLIA# [id number] [address] [place] [address] documented in this encounter Visit Diagnoses Diagnosis Hypertriglyceridemia- Primary Pure hyperglyceridemia documented in this encounter Administered Medications Inactive Administered Medications - up to 3 most recent administrations Medication Order MAR Action Action Date Dose Rate Site alteplase (CATHFLO ACTIVASE) 2 mg injection 2 mg 2 mg, Dwell, ONE TIME ONLY, 1 dose, On Sat12/07/20 at 1030, Stat, Please tube to 516, thanks! Given 12/07/2020 11:01 AM CDT 2 mg Other (Comment) calcium GLUCONATE 2,000 mg in sodium chloride (iso-osmotic) 100 mL IVPB 2,000 mg, IV, INTRA-PROCEDURE ONCE, 1 dose, Starting on Sat12/07/20 at 1000, Until Sat12/07/20 at 1124, Routine New Bag 12/07/2020 10:24 AM CDT 2,000 mg 100 mL/hr heparin, porcine (pf) 10 unit/mL IV syringe 20 Units 20 Units, IV, ONE TIME ONLY, 1 dose, On Sat12/07/20 at 0930, Routine, Please tube to 516, thanks! Given 12/07/2020 11:16 AM CDT 20 Units heparin, porcine lock flush (pf) 100 unit/mL injection 500 Units 500 Units, IV, ONE TIME ONLY, 1 dose, On Sat12/07/20 at 0930, Routine Given 12/07/2020 11:17 AM CDT 500 Units heparin, porcine lock flush (pf) 100 unit/mL injection 500 Units 500 Units, IV, ONE TIME ONLY, 1 dose, On Sat12/07/20 at 0930, Routine, Please tube to 516, thanks! Given 12/07/2020 11:17 AM CDT 500 Units sodium chloride flush injection 10 mL 10 mL, IV, ONE TIME ONLY, 1 dose, On Sat12/07/20 at 0930, Routine Given 12/07/2020 11:16 AM CDT 10 mL sodium chloride flush injection 10 mL 10 mL, IV, ONE TIME ONLY, 1 dose, On Sat12/07/20 at 0930, Routine Given 12/07/2020 11:17 AM CDT 10 mL sodium chloride flush injection 20 mL 20 mL, IV, ONE TIME ONLY, 1 dose, On Sat12/07/20 at 0930, Routine Given 12/07/2020 11:15 AM CDT 20 mL water sterile injection See Admin Instructions, ONE TIME ONLY, 1 dose, On 12/07/20 at 1030, Routine Given 12/07/2020 11:01 AM CDT Other (Comment) documented in this encounter Additional Health Concerns Assessment Noted Time PHQ-9 Depression Total Score: 1 08/11/19 21 6:30 PM CDT documented as of this encounter Care Teams Plan Rep Relationship Specialty Start Date End Date Guerrero Middleton PA-C PCP - General Physician Clinical Laboratory Science Professor 02/13/18 documented as of this encounter
--- OUTSIDE RECORDS SUMMARY | 2024-05-03 20:40 | XMS_ITS | Encounter Summary ---
Author Organization [facility] Address [address] Orozco: Epic Prelude ADT [place] [address] Care Team Providers Care Cancer Registry Coordinator Name Role Phone Guerrero Middleton PA-C Primary Care Provide r Encounter Details Date Type Department Care Team (Latest Contact Info) Description 10/12/2020 Travel Social History Tobacco Use Types Packs/Day [...] How often do you attend [facility] or uatsdin services? Never 08/21/2018 Do you belong to any clubs o r organizations such as spiritism groups, unions, fraternal or athletic groups, or [...] Name [facility] [address] [place] [address] Marlys Mayer MD [address] [place] [address] documented as of this encounter Visit Diagnoses Not on filedocumented in this encounter Additional Health Concerns Assessment Noted Time PHQ-9 Depression Total Score: 1 08/11/19 6:30 PM CDT documented as of this encounter Care Teams Cancer Registry Coordinator Relationship Specialty Start Date End Date Guerrero Middleton PA-C PCP - General Physician Sales Agent Financial Report Service 02/13/18 documented as of this encounter
--- OUTSIDE RECORDS SUMMARY | 2024-05-03 20:40 | XMS_ITS | Encounter Summary ---
Author Organization [facility] Address [address] Orozco: Epic Prelude ADT [place] [address] Care Team Providers Care Air Conditioning Installer Supervisor Name Role Phone Guerrero Middleton PA-C Primary Care Provide r Encounter Details Date Type Department Care Team (Latest Contact Info) Description 09/15/2020 Travel Social History Tobacco Use Types Packs/Day [...] week 08/21/2018 How often do you attend [facility] or taoist services? Never 08/21/2018 Do you [...] 09/14/2024 3:00 PM CDT Office Visit [facility] [address] [place] [address] Marlys Mayer MD [address] [place] [address] documented as of this encounter Visit Diagnoses Not on filedocumented in this encounter Additional Health Concerns Assessment Noted Time PHQ-9 Depression Total Score: 1 08/11/19 21 6:30 PM CDT documented as of this encounter Care Teams Air Conditioning Installer Supervisor Relationship Specialty Start Date End Date Guerrero Middleton PA-C PCP - General Physician Hematology Oncology Consultant 02/13/18 documented as of this encounter
--- OUTSIDE RECORDS SUMMARY | 2024-05-03 20:40 | XMS_ITS | Encounter Summary ---
Author Organization [facility] Address [address] Orozco: Epic Prelude ADT [place] [address] Care Team Providers Care Frame Repairer Name Role Phone Guerrero Middleton PA-C Primary Care Provide r Encounter Details Date Type Department Care Team (Latest Contact Info) Description 12/07/2020 Travel Social History Tobacco Use Types Packs/Day [...] week 08/21/2018 How often do you attend [facility] or advent services? Never 08/21/2018 Do you belong to any clubs o r organizations such as shinto groups, unions, fraternal or athletic groups, or [...] For Rehabilitation [facility] [address] [place] [address] Marlys Mayer MD [address] [place] [address] documented as of this encounter Visit Diagnoses Not on filedocumented in this encounter Additional Health Concerns Assessment Noted Time PHQ-9 Depression Total Score: 1 08/11/19 21 6:30 PM CDT documented as of this encounter Care Teams Frame Repairer Relationship Specialty Start Date End Date Guerrero Middleton PA-C PCP - General Physician Batch Room Technician 02/13/18 documented as of this encounter
--- OUTSIDE RECORDS SUMMARY | 2024-05-03 20:40 | XMS_ITS | Encounter Summary ---
Author Organization [facility] Address [address] Orozco: Epic Prelude ADT [place] [address] Care Team Providers Care Car Filler Name Role Phone Guerrero Middleton PA-C Primary Care Provide r Encounter Details Date Type Department Care Team (Latest Contact Info) Description 07/10/2020 Travel Social History Tobacco Use Types Packs/Day [...] [facility] or mormonism services? Never 08/21/2018 Do you [...] have Coronavirus / COVID-19? No / Unsure 07/10/2020 7:48 PM CDT documented as of this encounter Plan of Treatment Upcoming Encounters Date Type Department Care Team (Late st Contact Info) Description 09/14/2024 3:00 PM CDT Office Visit [facility] [address] [place] [address] Marlys Mayer MD [address] [place] [address] documented as of this encounter Visit Diagnoses Not on filedocumented in this encounter Care Teams Car Filler Relationship Specialty Start Date End Date uGerrero Middleton PA-C PCP - General Physician Clinical Operations Manager 02/13/18 documented as of this encounter
--- OUTSIDE RECORDS SUMMARY | 2024-05-03 20:40 | XMS_ITS | Encounter Summary ---
Author Organization [facility] Address [address] [place] [address] Care Team Providers Care Teaching Pastor Name Role Phone Guerrero Middleton PA-C Primary Care Provide r Encounter Details Date Type Department Care Team (Latest Contact Info) Description 10/05/2020 9:45 AM CDT - 10/05/2020 11:59 PM CDT Hospital Encounter [facility] Tobacco Cessation [address] [place] [address] [address] [id number] Discharge Disposition: Home or Self Care Social [...] AM CDT documented as of this encounter Medications at Time of Discharge Medication Sig Dispensed Refills Start Date End Date traZODone (DESYREL) 100 mg tablet Take 100 mg by mouth daily at bedtime . levothyroxine 200 mcg tablet Take 200 mcg by mouth. 10/28/2018 09/26/2023 metFORMIN (GLUCOPHAGE) 500 mg tablet Take 500 mg by mouth 2 times daily. 06/05/2018 09/26/2023 levothyroxine 200 mcg tabletIndications:Acq uired hypothyroidism Take [...] for Anxiety. 60 Tablet 2 09/15/2020 09/26/2023 insulin aspart U-100 (NovoLOG Flexpen U-100 Insulin) 100 unit/mL pen syringe INJECT APPROXIMATELY 50 UNITS A DAY PER CORRECTION DOSE WITH MEALS 45 mL 07/04/2020 11/01/2020 fenofibrate (LOFIBRA) 160 mg Tablet TAKE 1 TABLET BY MOUTH EVERY DAY 90 Tablet 1 06/06/2020 01/27/2021 [employer] G6 Sensor Device Change sensor every 10 days. (9 sensors = 90 days) 9 Each 1 05/16/2020 12/26/2023 Dexcom G6 Transmitter Device Change transmitter every 90 days 1 Each 1 05/16/2020 12/26/2023 icosapent ethyL (Vascepa) 1 gram Capsule Take 2 Capsules (2 Grams) by mouth 2 times daily with meals. The pt is on fenofibrate, crestor and her triglycerides >1000, history of pancreatitis 360 Capsule 1 05/04/2020 12/07/2020 empagliflozin (JARDIANCE) 25 mg tablet Take 1 tablet by mouth early in the morning. 30 Tablet 6 12/23/2019 12/07/2020 varenicline (Chantix) 0.5 mg Tablet Take 1 Tablet (0.5 mg) by mouth 2 times daily. 60 Tablet 12/14/2019 09/19/2023 flash glucose sensor (FreeStyle Torey 14 Day Sensor) Kit 1 sensor every 14 days 2 Kit 6 12/14/2019 11/09/2020 ondansetron (ZOFRAN ODT) 4 mg Tablet, Rapid Dissolve Dissolve 1 tablet on top of tongue, then swallow with saliva every 6 hours as needed for nausea/vomiting. 30 Tablet 05/21/2018 09/26/2023 pantoprazole (PROTONIX) 40 mg Tablet, Delayed Release (E.C.) Take 40 mg by mouth 2 times daily . 09/26/2023 rosuvastatin (CRESTOR) 20 mg tablet Take 20 mg by mouth daily at bedtime. 09/19/2023 citalopram (CeleXA) 40 mg tablet Take 40 mg by mouth daily at bedtime. 11/01/2020 documented as of this encounter Plan of Treatment Upcoming Encounters Date Type Department Care Team (Late st Contact Info) Description 09/14/2024 3:00 PM CDT Office Visit [facility] Heart and Vascular - [facility] [address] [place] [address] Marlys Mayer MD [address] [place] [address] documented as of this encounter Visit Diagnoses Not on filedocumented in this encounter Additional Health Concerns Assessment Noted Time PHQ-9 Depression Total Score: 1 08/11/19 21 6:30 PM CDT documented as of this encounter Care Teams Teaching Pastor Relationship Specialty Start Date End Date Guerrero Middleton PA-C PCP - General Physician Aviation Tactical Readiness Officer 02/13/18 documented as of this encounter
--- OUTSIDE RECORDS SUMMARY | 2024-05-03 20:40 | XMS_ITS | Encounter Summary ---
Author Organization [facility] Address [address] [place] [address] Care Team Providers Care Hospice Administrator Name Role Phone Guerrero Middleton PA-C Primary Care Provide r Reason for Visit * Reason Comments Medication Refill Encounter Details Date Type Department Care Team (Late st Contact Info) Description 12/06/2020 Refill [facility] Endocrinology [address] [place] [address] Prudence Gates MD [address] [place] [address] Social History Tobacco Use Types Packs/Day Years [...] any clubs o r organizations such as yazidi groups, unions, fraternal or athletic groups, or [...] * Telephone Encounter - Lexus Iyer - 12/07/2020 7:46 AM CDT ANGELES: 11/09/2020 NOV: 04/19/2021 documented in this encounter Plan of Treatment Upcoming Encounters Date Type Department Care Team (Late st Contact Info) Description 09/14/2024 3:00 PM CDT Office Visit [facility] [address] [place] [address] Marlys Mayer MD [address] [place] [address] documented as of this encounter Visit Diagnoses Not on filedocumented in this encounter Additional Health Concerns Assessment Noted Time PHQ-9 Depression Total Score: 1 08/11/19 21 6:30 PM CDT documented as of this encounter Care Teams Hospice Administrator Relationship Specialty Start Date End Date Guerrero Middleton PA-C PCP - General Physician Mac Developer 02/13/18 documented as of this encounter
--- OUTSIDE RECORDS SUMMARY | 2024-05-03 20:40 | XMS_ITS | Encounter Summary ---
Author Organization [facility] Address [address] [place] [address] Care Team Providers Care Hooking Machine Operator Name Role Phone Guerrero Middleton PA-C Primary Care Provide r Reason for Referral * Eval and Treat (Routine) - Closed Specialty Diagnoses / Procedures Referred By Tequila t Referred To Contact Diagnoses Familial hypertriglyceridemia Prudence Gates MD [address] [place] [id number] Referral ID Status Reason Start Date Expiration Date Visits Re quested Visits Authorized [id number] Closed 09/15/2020 09/15/2021 1 1 Reason for Visit * Reason Comments Diabetes type 2 Encounter Details Date Type Department Care Team (Late st Contact Info) Description 09/15/2020 9:45 AM CDT Office Visit [facility] Endocrinology [address] [place] [id number] Prudence Gates MD [address] [place] [address] Hand trauma, right, initial encounter (Primary Dx); Uncontrolled type 2 diabetes mellitus with insulin therapy; Familial hypertriglyceridemia ; Acquired hypothyroidism; Depression with anxiety Social History Tobacco Use Types Packs/Day Years [...] often do you attend chur ch or faith services? Never 08/21/2018 Do you [...] Sign Reading Time Taken Comments Blood Pressure 114/78 09/15/2020 9:31 AM CDT Pulse 80 09/15/2020 9:31 AM CDT Temperature - - Respiratory Rate - - Oxygen Saturation - - Inhaled Oxygen Concentration - - Weight 84.4 kg (186 lb) 09/15/2020 9:31 AM CDT Height 165.1 cm (5' 5 ) 09/15/2020 9:31 AM CDT Body Mass Index 30.95 09/15/2020 9:31 AM CDT documented in this encounter Progress Notes * Prudence Gates MD - 09/15/2020 10:01 AM CDT Casandra Jones is a 43 y.o. 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 This was evident on CT with mild fat stranding. She is being treated with plasmapheresis (with the ports she gets treatments twice a month), thelast one today. She has bouts of pancreatitis and had to be hospitalized in 06/2020 and July She is on disability. She is on a government program. She is very depressed She lacks motivation even to get out of bed, per friend that came with her. She fell and landed on her hand +pain on the right hand and wrist I can not even grab a cup She came with a wrist support, +swelling, no ecchymosis or redness. For her lipids She takes fenofibrate 160 mg. She went to the [facility] and was told to stop the fish oil. She also takes rosuvastatin 20 mg a day. +depression , lacks motivation The patient completed the 2 COVID vaccinations. She has been struggling with the cost of medications. She had to quit a special diet due to cost. She has not been following her strict ? DM: Compliant with insulin basaglar 35 units bid. She has not been using the short acting insulin on a regular basis She is also taking jardiance, fortunately getting assistance. Takes metformin 500 BID. ?? She is using the Free Style Libre2 Needs eye exam: once a year Water intake 120 oz a day Has occassional numbness and tingling in feet. Diet Breakfast: not much Lunch; sandwich or soup Dinner: protein, vegetable and a starch Bedtime snack (cookies) Snacks in between: occasionally nuts or cheese stick. ??Also has hypothyroidism. She takes levothyroxine 200 mcg/d. ?? Review of Systems - General ROS: negative for fever Psychological ROS: + for anxiety and depressive symptoms controlled Endocrine ROS: negative for polyuria/polydipsia or new changes in weight Respiratory ROS: negative for cough, shortness of breath, or wheezing Cardiovascular ROS: negative for chest pain or dyspnea on exertion Gastrointestinal ROS: negative for reflux, abdominal pain, change in bowel habits, or black or bloody stools Genito-Urinary ROS: negative for dysuria, trouble voiding, or hematuria Musculoskeletal ROS: negative for back pain, neck pain or joint pain or swelling Neurological ROS: negative for TIA or stroke symptoms Current Outpatient Medications on File Prior to Visit Medication Sig Dispense Refill ??? diphenhydrAMINE (BENADRYL) 25 mg tablet Take 1 Tablet (25 mg) by mouth every 8 hours as needed for Itching. 16 Tablet 0 ??? Fish Oil-Nichols-3 Fatty Acids 360-1,200 mg Capsule Take 2 Capsules by mouth 2 times daily with meals. ??? insulin aspart U-100 (NovoLOG Flexpen U-100 Insulin) 100 unit/mL pen syringe INJECT APPROXIMATELY 50 UNITS A DAY PER CORRECTION DOSE WITH MEALS 45 mL 0 ??? [DISCONTINUED] LORazepam (ATIVAN) 1 mg tablet Take 1 Tablet (1 mg) by mouth 2 times daily as needed for Anxiety. 60 Tablet 0 ??? fenofibrate (LOFIBRA) 160 mg Tablet TAKE 1 TABLET BY MOUTH EVERY DAY (Patient taking differently: Take 160 mg by mouth daily. ) 90 Tablet 1 ??? Dexcom G6 Sensor Device Change sensor every 10 days. (9 sensors = 90 days) 9 Each 1 ??? Dexcom G6 Transmitter Device Change transmitter every 90 days 1 Each 1 ??? [DISCONTINUED] levothyroxine 200 mcg tablet Take 1 Tablet (200 mcg) by mouth daily. Take along with 50 mcg tab =250 mcg total daily Dose change 90 Tablet 0 ??? icosapent ethyL (Vascepa) 1 gram Capsule Take 2 Capsules (2 Grams) by mouth 2 times daily with meals. The pt is on fenofibrate, crestor and her triglycerides >1000, history of pancreatitis 360Capsule 1 ??? empagliflozin (JARDIANCE) 25 mg tablet Take 1 tablet by mouth early in the morning. 30 Tablet 6 ??? varenicline (Chantix) 0.5 mg Tablet Take 1 Tablet (0.5 mg) by mouth 2 times daily. 60 Tablet 0 ??? flash glucose sensor (FreeStyle Torey 14 Day Sensor) Kit 1 sensor every 14 days 2 Kit 6 ??? [DISCONTINUED] metFORMIN (GLUCOPHAGE) 500 mg tablet Take 2 Tablets by mouth 2 times daily with meals. 60 Tablet 0 ??? ondansetron (ZOFRAN ODT) [...] 20 mg by mouth daily at bedtime. ??? citalopram (CeleXA) 40 mg tablet Take 40 mg by mouth daily at bedtime. No current facility-administered medications on file prior to visit. Allergies Allergen Reactions ??? Adhesive Tape-Silicones Hives ??? Green Pepper Hives ??? Adhesive Unknown ??? Aspartame Headache Past Medical History: Diagnosis Date ??? Anxiety [...] of left power flow port 05/11/2019 ??? [place] ESOPHAGOGASTRODUODENOSCOPY TRANSORAL DIAGNOSTIC N/A 03/08/2018 ESOPHAGOGASTRODUODENOSCOPY performed by Ceasar Vega MD at [facility] Family History Problem Relation Name Age of Onset ??? Diabetes Father ??? High Cholesterol Father ??? Hypertension Father ??? Stroke Mother ??? Heart Disease Mother ??? Thyroid Disease Mother ??? High Cholesterol Mother ??? Heart Disease Maternal Grandmother ??? Diabetes Maternal Grandmother ??? Diabetes Paternal Grandmother ??? Diabetes Mother Social History Tobacco Use ??? Smoking status: Current Every Day Smoker Packs/day: 1.00 Years: 18.00 Pack years: 18.00 Types: Cigarettes ??? Smokeless tobacco: Never Used ??? Tobacco comment: nicotine patch requested Substance Use Topics ??? Alcohol use: No PE:The patient is alert oriented x3 BP 114/78 Pulse 80 Ht 5' 5 (1.651 m) Wt 84.4 kg (186 lb) BMI 30.95 kg/m?? NAD Neck is supple, there is [...] Labs Lab Results Component Value Date/Time HGBA1C 9.2 (H) 07/12/2020 05:00 AM Lab Results Component Value Date/Time CHOLTOT 162 02/01/2019 10:15 PM HDL 30 (L) 02/01/2019 10:15 PM LDLCALC 02/01/2019 10:15 PM Comment: Calculated LDL is not accurate when the Triglyceride value exceeds 400. LDLDIRECT 110 08/10/2011 07:21 AM TRIGLYCERIDE 305 (H) 08/14/2020 04:56 AM Lab Results Component Value Date/Time NA 139 08/14/2020 04:56 AM K 3.6 08/14/2020 04:56 AM CL 107 08/14/2020 04:56 AM CO2 24 08/14/2020 04:56 AM CA 8.3 (L) 08/14/2020 04:56 AM BUN 7 08/14/2020 04:56 AM CREAT 0.51 08/14/2020 04:56 AM GLUCOSE 96 08/14/2020 04:56 AM TOTALPROTEIN 6.1 (L) 08/10/2020 03:43 PM ALBUMIN 4.5 08/10/2020 03:43 PM BILITOTAL 0.3 08/10/2020 03:43 PM ALKPHOS 43 08/10/2020 03:43 PM AST 22 08/10/2020 03:43 PM ALT 13 08/10/2020 03:43 PM ANIONGAP 8 08/14/2020 04:56 AM Lab Results Component Value Date/Time [id number] 51 08/10/2011 07:21 AM [id number] 6 08/10/2011 07:21 AM [id number] 57 08/10/2011 07:21 AM Lab Results Component Value Date/Time WBC 9.0 09/15/2020 01:30 PM HGB 13.1 09/15/2020 01:30 PM HCT 40.2 09/15/2020 01:30 PM PLT 264 09/15/2020 01:30 PM MCV 89.5 09/15/2020 01:30 PM No results found for: MICROALBUMIN, MALBUR, KILOPE60, MICRCREATR, MICRALBURINE Lab Results Component Value Date/Time TSH 1.44 06/08/2020 09:49 AM ASSESSMENT: Encounter Diagnoses Name Primary? Uncontrolled type 2 diabetes mellitus with insulin therapy ??? Hand trauma, right, initial encounter Yes ??? Familial hypertriglyceridemia ??? Acquired hypothyroidism ??? Depression with anxiety PLAN: Orders Placed This Encounter ??? XR HAND 3+ VW RIGHT ??? HEMOGLOBIN A1C ??? *[facility] Smoking Cessation ? ? [place] CONTINUOUS GLUCOSE MONITORING ANALYSIS I&R ??? levothyroxine 200 mcg tablet ??? insulin glargine (Basaglar KwikPen U-100 Insulin) 100 unit/mL pen syringe ??? metFORMIN (GLUCOPHAGE) 1,000 mg tablet ??? buPROPion HCL (WELLBUTRIN SR) 150 mg Sustained Release 12 hour tablet ??? LORazepam (ATIVAN) 1 mg tablet Smoking cessation of most importance. Recommended cessaton DM Needs strict control to be able to control her high Tg as well Needs to start her strict diet glargine 35 units bid Novolog insulin with meals Sensor download obtained Data from the last 14 days reviewed and discussed with the patient insulin changes made based on that data. Time of insulin administration related to meals, exercise and patterns reviewed with the patient The patient needs to check the blood sugars before meals and bedtime for 1 week and send the numbers so we can adjust the diabetes medications/insulin if on it. Target blood sugars between 80-120 in am and less than 140 premeals Needs to remain hydrated. We also reviewed the insulin use and how tight control of her blood sugars will help with her hypertriglyceridemia. Regarding her hypothyroidism, it needs to be [...] TSH goal and Monitoring frequency d/w pt Regarding her severe hypertriglyceridemia, she requires monthly plasmapheresis, strict diet, exercise, fibrates and statins Target LDL <50, needs a direct LDL to assess statin dose. Her TG need to be kept under 1000 to prevent another pancreatitis episode. Continue plasmapheresis Continue fibrates 4 gr of vascepa per day Weight loss of most importance. Depression /anxiety : big issue Add bupropion (mechanism of action and side effects of that medication discussed) This will also help with smoking cessation Orders Placed This Encounter ??? XR HAND 3+ VW RIGHT ??? HEMOGLOBIN A1C ??? *[facility] Smoking Cessation ? ? [place] CONTINUOUS GLUCOSE MONITORING ANALYSIS I&R ??? levothyroxine 200 mcg tablet ??? insulin glargine (Basaglar KwikPen U-100 Insulin) 100 unit/mL pen syringe ??? metFORMIN (GLUCOPHAGE) 1,000 mg tablet ??? buPROPion HCL (WELLBUTRIN SR) 150 mg Sustained Release 12 hour tablet ??? LORazepam (ATIVAN) 1 mg tablet Thank you very much for allowing us to participate in this patient care. If you have any questions or concerns, please do not hesitate to contact us, Sincerely yours Prudence Gates documented in this encounter Plan of Treatment Upcoming Encounters Date Type Department Care Team (Late st Contact Info) Description 09/14/2024 3:00 PM CDT Office Visit [facility] V[facility] - [facility] [address] [place] [address] Marlys Mayer MD [address] [place] [address] Scheduled Referrals Name Type Priority Associated Diagnoses Orde r Schedule AMB REFERRAL TO SMOKING CESSATION PROGRAM Outpatient Referral Routine Familial hypertriglyceridemia Ordered: 09/15/2020 documented as of this encounter Results * XR HAND 3+ VW RIGHT (09/15/2020 12:32 PM CDT) Anatomical Region Laterality Modality Wrist / Hand Computed Radiogr aphy 09/15/2020 12:3 2 PM CDT Impressions 09/15/2020 2:11 PM CDT IMPRESSION: 1. Unremarkable right hand radiographs. If symptoms persist, consider follow-up radiographs in 7-10 days. DICTATION LOCATION: Location [address] [place] [address] Narrative 09/15/2020 2:11 PM CDT XR HAND 3+ VW RIGHT DATE: 09/15/2020 12:32 PM HISTORY: See Diagnosis. 44-year-old female wrist pain TECHNIQUE: Three views right hand COMPARISON: None FINDINGS: Bone mineralization and alignment is within normal limits. There is no acute fracture or dislocation. Joint spaces are preserved. Procedure Note You Matthews MD - 09/15/2020 XR HAND 3+ VW RIGHT DATE: 09/15/2020 12:32 PM HISTORY: See Diagnosis. 44-year-old female wrist pain TECHNIQUE: Three views right hand COMPARISON: None FINDINGS: Bone mineralization and alignment is within normal limits. There is no acute fracture or dislocation. Joint spaces are preserved. IMPRESSION: 1. Unremarkable right hand radiographs. If symptoms persist, consider follow-up radiographs in 7-10 days. DICTATION LOCATION: [address] Prudence Gates MD DIAGNOSTIC ENMANUEL Serrano ORDERABLES documented in this encounter Visit Diagnoses Diagnosis Hand trauma, right, initial encounter- Primary Uncontrolled type 2 diabetes mellitus with insulin therapy Type II or unspecified type diabetes mellitus without mention of complication, uncontrolled Familial hypertriglyceridemia Pure hyperglyceridemia Acquired hypothyroidism Unspecified hypothyroidism Depression with anxiety Dysthymic disorder Acquired hypothyroidism Unspecified hypothyroidism Wrist pain, acute, right Uncontrolled type 2 diabetes mellitus with insulin therapy Type II or unspecified type diabetes mellitus without mention of complication, uncontrolled Familial hypertriglyceridemia Pure hyperglyceridemia Depression with anxiety Dysthymic disorder documented in this encounter Additional Health Concerns Assessment Noted Time PHQ-9 Depression Total Score: 1 08/11/19 21 6:30 PM CDT documented as of this encounter Care Teams Hooking Machine Operator Relationship Specialty Start Date End Date Guerrero Middleton PA-C PCP - General Physician Industrial Psychologist 02/13/18 documented as of this encounter
--- OUTSIDE RECORDS SUMMARY | 2024-05-03 20:40 | XMS_ITS | Encounter Summary ---
Author Organization [facility] Address [address] [place] [address] Care Team Providers Care Tax Agent Name Role Phone Guerrero Middleton PA-C Primary Care Provide r Encounter Details Date Type Department Care Team (Latest Contact Info) Description 09/15/2020 12:35 PM CDT - 09/15/2020 11:59 PM CDT Hospital Encounter [facility] [address] [phone] Alize Arteaga MD NO ADDRESS ON FILE Discharge Disposition: Home or Self Care Social [...] any clubs o r organizations such as samaritan groups, unions, fraternal or athletic groups, or [...] Sign Reading Time Taken Comments Blood Pressure 97/61 09/15/2020 2:45 PM CDT Pulse 84 09/15/2020 2:45 PM CDT Temperature 36.6 ??C (97.9 ??F) 09/15/2020 2:45 PM CD T Respiratory Rate 16 09/15/2020 2:45 PM CDT Oxygen Saturation - - Inhaled [...] bedtime. 11/01/2020 documented as of this encounter Progress Notes * Shrari Juarez RN - 09/15/2020 1:00 PM CDT Plasma exchange completed today using right and left chest BARD ports for access and return. Used 5% Albumin as replacement fluid for a 1.0 volume exchange with a 100% fluid balance. Patient tolerated the procedure well. The next plasma exchange is scheduled for 10/12/2020. * Alize Arteaga MD - 09/15/2020 1:00 PM CDT CC: ??44??yo female undergoing prophylaxis for??hypertriglyceridemic pancreatitis in the setting of?recurrent necrotizing pancreatitis requires??plasma exchange. ?? Interval history:??Patient feels great. She remains puzzled as to why she had 3 very bad months with her pancreatitis in May through July 2020 and is happy to be feeling better. ?? 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 Admission for pancreatitis requiring apheresis 05/2020, 06/2020, 07/2020). DM, anxiety, GERG, HLD, hypothyroidism, PCOS ?? Meds: as per EPIC. ?? Exam: ?? General Appearance: - Well nourished -In no acute distress Eyes: - No scleral icterus Neck: - No masses, symmetrical Cardiac: - No lower extremity edema Skin: - Inspection: No rashes evident - R??and L??chest port sites??well healed with pink scar Respiratory: - Unlabored breathing Neuro: - Alert and Oriented x??4 - Normal Affect ?Labs: WBC 9.0, hemoglobin 13.1, hematocrit 40.2, platelets 264 Preprocedure triglycerides 975 ?? A&P: 1. 44??yo female with??recurrent??hypertriglyceridemic pancreatitis requires??prophylactic??plasma exchange. Patient has??recurrent [...] the procedure. ?? 3. Plan to see patient in 1 month for her next procedure. ?? I have seen and examined the patient, reviewed pertinent notes and records, and remained immediately available throughout the procedure. ?? Alize Arteaga MD, PhD Semi Truck Driver, therapeutic apheresis service [phone] ?? Procedure??notes:?L and??R bard ports??used for procedure. ??Patient tolerated procedure well.?? documented in this encounter Plan of Treatment Upcoming Encounters Date Type Department Care Team (Late st Contact Info) Description 09/14/2024 3:00 PM CDT Office Visit [facility] Heart and Vascular - [facility] [address] [place] [address] Marlys Mayer MD [address] [place] [address] documented as of this encounter Procedures Procedure Name Priority Date/Time Associated Diagnosis Comments CBC WITHOUT DIFFERENTIAL Stat 09/15/2020 1:30 PM CDT Hypertriglyceridemi a TRIGLYCERIDE Routine 09/15/2020 1:30 PM CDT Hypertriglyceridemi a documented in this encounter Results * (ABNORMAL) CBC WITHOUT DIFFERENTIAL (09/15/2020 1:30 PM CDT) WBC 9.0 4.0 - 9.8 K/uL 09/15/2020 1:35 PM CDT [facility] RBC 4.49 3.90 - 4.90 M/uL 09/15/2020 1:35 PM CDT [facility]ORY [facility] - [facility] HEMOGLOBIN 13.1 11.8 - 14.8 g/dL 09/15/2020 1:35 PM CDT [facility]ATORY SERVICES - [facility] HEMATOCRIT 40.2 35.5 - 44.0 % 09/15/2020 1:35 PM CDT [facility] - [facility] MCV 89.5 82.0 - 99.0 fL 09/15/2020 1:35 PM CDT [facility] MCH 29.2 27.2 - 32.6 pg 09/15/2020 1:35 PM CDT [facility]ATORY [facility] - [facility] MCHC 32.6 31.5 - 35.5 g/dL 09/15/2020 1:35 PM CDT [facility] LAB[facility]ATORY SERVICES - [facility] PLATELETS 264 140 - 350 K/uL 09/15/2020 1:35 PM CDT [facility] MPV 9.1(L) 9.3 - 12.4 fL 09/15/2020 1:35 PM CDT [facility]ATORY SERVICES - [facility] RDW 14.0 11.5 - 14.5 % 09/15/2020 1:35 PM CDT [facility] LABORATORY [facility] RDW-STDEV 45.2 37.1 - 48.7 fL 09/15/2020 1:35 PM CDT [facility] LABORATORY [facility] Blood Venipuncture / Unknown 09/15/2020 1:30 PM CDT 09/15/2020 1:32 PM CDT Alize Arteaga MD HEMATOLOGY ORDE RABLES [facility]# [id number] [address] [place] [address] * (ABNORMAL) TRIGLYCERIDE (09/15/2020 1:30 PM CDT) TRIGLYCERIDE 975(H) <150 mg/dL 09/15/2020 2:41 PM CDT [facility] LABORATORY [facility] Blood Venipuncture / Unknown 09/15/2020 1:30 PM CDT 09/15/2020 1:32 PM CDT Narrative [facility]OR[facility] - 09/15/2020 2:41 PM CDT TRIGLYCERIDES ? mg/dL Normal ?< 150 Borderline High ?150 - 199 High ? 200 - 499 Very High ? >= 500 Based on AHA/NCEP Guidelines. Alize Arteaga MD CHEMISTRY ORDER OSVALDO Performing Organization Address City/[facility]/ZIP Co de Phone Number [facility]# [id number] [address] [place] [address] documented in this encounter Visit Diagnoses Diagnosis Hypertriglyceridemia- Primary Pure hyperglyceridemia Mixed hyperlipidemia documented in this encounter Administered Medications Inactive Administered Medications - up to 3 most recent administrations Medication Order MAR Action Action Date Dose Rate Site calcium GLUCONATE 2,000 mg in sodium chloride (iso-osmotic) 100 mL IVPB 2,000 mg, IV, INTRA-PROCEDURE ONCE, 1 dose, Starting on Katie 09/15/20 at 1300, Until Katie 09/15/20 at 1444, Routine New Bag 09/15/2020 1:31 PM CDT 2,000 mg 100 mL /hr heparin, porcine (pf) 10 unit/mL IV syringe 20 Units 20 Units, IV, POST-PROCEDURE ONCE, 1 dose, Starting on Katie 09/15/20 at 1300, Until Katie 09/15/20 at 1441, Routine Given 09/15/2020 2:41 PM CDT 20 Units heparin, porcine lock flush (pf) 100 unit/mL injection 500 Units 500 Units, IV, POST-PROCEDURE ONCE, 1 dose, Starting on Katie 09/15/20 at 1300, Until Katie 09/15/20 at 1442, Routine Given 09/15/2020 2:42 PM CDT 500 Units heparin, porcine lock flush (pf) 100 unit/mL injection 500 Units 500 Units, IV, POST-PROCEDURE ONCE, 1 dose, Starting on Katie 09/15/20 at 1300, Until Katie 09/15/20 at 1441, Routine Given 09/15/2020 2:41 PM CDT 500 Units documented in this encounter Additional Health Concerns Assessment Noted Time PHQ-9 Depression Total Score: 1 08/11/19 21 6:30 PM CDT documented as of this encounter Care Teams Tax Agent Relationship Specialty Start Date End Date Guerrero Middleton PA-C PCP - General Physician Military Pay Technician 02/13/18 documented as of this encounter
--- OUTSIDE RECORDS SUMMARY | 2024-05-03 20:40 | XMS_ITS | Encounter Summary ---
Author Organization [facility] Address [address] [place] [address] Care Team Providers Care Reference Test Clerk Name Role Phone Guerrero Middleton PA-C Primary Care Provide r Reason for Visit * Auth/Cert Specialty Diagnoses / Procedures Referred By Tequila t Referred To Contact Emergency Medicine [facility] Emergency Dept [address] [place] [address] Referral ID Status Reason Start Date Expiration Date Visits Re quested Visits Authorized [id number] 1 1 Encounter Details Date Type Department Care Team (Latest Contact Info) Description 08/10/2020 9:30 AM CDT - 08/10/2020 11:59 PM CDT Hospital Encounter [facility] [address] [place] [address] Alize Arteaga MD NO ADDRESS ON [...] How often do you attend chur or mu-ism services? Never 08/21/2018 Do you belong to any clubs o r organizations such as rastafari groups, unions, fraternal or athletic groups, or [...] have Coronavirus / COVID-19? No / Unsure 08/10/2020 6:10 PM CDT documented as of this encounter Last Filed Vital Signs Vital Sign Reading Time Taken Comments Blood Pressure 110/73 08/10/2020 10:50 AM CDT Pulse 102 08/10/2020 10:50 AM CDT Temperature 37 ??C (98.6 ??F) 08/10/2020 10:50 AM CDT Respiratory Rate 18 08/10/2020 10:50 AM CDT Oxygen Saturation - - Inhaled [...] DOSE WITH MEALS 45 mL 07/04/2020 11/01/2020 LORazepam (ATIVAN) 1 mg tabletIndications:Dep ression with anxiety Take 1 Tablet (1 mg) by mouth 2 times daily as needed for Anxiety. 60 Tablet 06/18/2020 09/15/2020 fenofibrate (LOFIBRA) 160 mg Tablet TAKE 1 TABLET BY MOUTH EVERY DAY 90 Tablet 1 06/06/2020 01/27/2021 Dexcom G6 Sensor Device Change sensor every 10 days. (9 sensors = 90 days) 9 Each 1 05/16/2020 12/26/2023 Dexcom G6 Transmitter Device Change transmitter every 90 days 1 Each 05/16/2020 12/26/2023 levothyroxine 50 mcg tabletIndications:Acq uired hypothyroidism Take 1 Tablet (50 mcg) by mouth daily in the morning. Take along with 200 mcg tab =250 mcg daily 90 Tablet 1 05/11/2020 09/15/2020 levothyroxine 200 mcg tabletIndications:Acq uired hypothyroidism Take 1 Tablet (200 mcg) by mouth daily. Take along with 50 mcg tab =250 mcg total daily Dose change 90 Tablet 05/11/2020 09/15/2020 icosapent ethyL (Vascepa) 1 gram Capsule Take [...] 14 days 2 Kit 6 12/14/2019 11/09/2020 metFORMIN (GLUCOPHAGE) 500 mg tablet Take 2 Tablets by mouth 2 times daily with meals. 60 Tablet 06/05/2018 09/15/2020 ondansetron (ZOFRAN ODT) 4 mg Tablet, Rapid [...] Progress Notes * Puja Paz RN - 08/10/2020 9:30 AM CDT Plasma exchange completed using R and L bard ports. 1.0 Volume, 100% fluid balance using 5% albuminas replacement fluid. Pt tolerated the procedure well. * Alize Arteaga MD - 08/10/2020 9:30 AM CDT CC: ??44??yo female undergoing prophylaxis for??hypertriglyceridemic pancreatitis in the setting of?recurrent necrotizing pancreatitis requires??plasma exchange. ?? Interval history:??Patient??feels terrible. She has nausea, vomiting, abdominal pain and headache. Has been taking diabetes medications. Patient feels she may have gotten behind on apheresis due tospacing out procedures around COVID vaccinations. She is fully vaccinated now. ?? PMH: ??Hypertriglyceridemia (associated with prior episodes of pancreatitis, received inpatient plasma exchanges 04/2018, 07/2018 and 09/2018, started on prophylactic exchanges??10/2018, one port removedfrom R chest and new port placed in L chest 02/18/2019, on outpatient maintenance after that. Admission for pancreatitis requiring apheresis 05/2020 and 06/2020), DM, anxiety, GERG, HLD, hypothyroidism, PCOS ?? Meds: as per EPIC. ?? Exam: ?? General Appearance: - Well nourished - Withdrawn Eyes: - No scleral icterus Neck: - No masses, symmetrical Cardiac: - No lower extremity edema Skin: - Inspection: No rashes evident - R??and L??chest port sites??well healed with pink scar Respiratory: - Unlabored breathing Neuro: - Alert and Oriented x??4 - Normal Affect ?Labs: 07/12/20 WBC??6.1, hemoglobin??11.8, hematocrit??37.8, platelets??209 ??08/10/20 pre-procedure triglycerides >4,425 ?? A&P: 1. 44??yo female with??recurrent??hypertriglyceridemic pancreatitis requires??prophylactic??plasma exchange. Patient has??recurrent necrotizing pancreatitis??and was??initiated on prophylactic plasmaexchange for prevention of hypertriglyceridemic pancreatitis starting 11/12/18??in consultation withDrs. Rudd and Moreno.??(ASFA category III indication for apheresis). Patient now follows with Dr. Gates with endocrine. 2. ??We will perform a 1.0 volume plasma exchange with all albumin replacement with 100% fluid balance with 2 g calcium gluconate over the procedure. ??Previously, goal triglycerides <500??per ASFA.?However, there is literature that shows the Optia??instrument can achieve significant reductions in triglyceride level with a preprocedure triglyceride level as low as 250.?? 3. Plan to see patient on August 12 for her next procedure. ?? I have seen and examined the patient, reviewed pertinent notes and records, and remained immediately available throughout the procedure. ?? Alize Arteaga MD, PhD Cash Sales Audit Clerk, therapeutic apheresis service [phone] ?? Procedure??notes:?L and??R bard ports??used for procedure. ??Patient tolerated procedure well.?? documented in this encounter Plan of Treatment Upcoming Encounters Date Type Department Care Team (Late st Contact Info) Description 09/14/2024 3:00 PM CDT Office Visit [facility] - [address] [phone] [place] [address] Marlys Mayer MD [address] [place] [address] documented as of this encounter Procedures Procedure Name Priority Date/Time Associated Diagnosis Comments TRIGLYCERIDE Routine 08/10/2020 9:41 AM CDT Hypertriglyceridemia documented in this encounter Results * (ABNORMAL) TRIGLYCERIDE (08/10/2020 9:41 AM CDT) TRIGLYCERIDE >4,425(H) <150 mg/dL 08/10/2020 10:43 AM CDT [facility] [employer] [facility] Blood Venipuncture / Unknown 08/10/2020 9:41 AM CDT 08/10/2020 9:43 AM CDT Narrative [facility] [employer] [facility] - 08/10/2020 10:43 AM CDT TRIGLYCERIDES ? mg/dL Normal ?< 150 Borderline High ?150 - 199 High ? 200 - 499 Very High ? >= 500 Based on AHA/NCEP Guidelines. Alize Arteaga MD CHEMISTRY ORDER [place]DO [facility] [employer] [facility] CLIA# [id number] [address] [place] [address] documented in this encounter Visit Diagnoses Diagnosis Mixed hyperlipidemia- Primary Hypertriglyceridemia Pure hyperglyceridemia documented in this encounter Administered Medications Inactive Administered Medications - up to 3 most recent administrations Medication Order MAR Action Action Date Dose Rate Site calcium GLUCONATE 2,000 mg in sodium chloride (iso-osmotic) 100 mL IVPB 2,000 mg, IV, INTRA-PROCEDURE ONCE, 1 dose, Starting on Sat08/10/20 at 0930, Until Sat08/10/20 at 1043, Routine New Bag 08/10/2020 9:42 AM CDT 2,000 mg 100 mL /hr heparin, porcine (pf) 10 unit/mL IV syringe 20 Units 20 Units, IV, ONE TIME ONLY, 1 dose, On Sat08/10/20 at 0930, Routine, Please tube to 516, thanks! Given 08/10/2020 10:44 AM CDT 20 Units heparin, porcine lock flush (pf) 100 unit/mL injection 500 Units 500 Units, IV, ONE TIME ONLY, 1 dose, On Sat08/10/20 at 0930, Routine, Please tube to 516, thanks! Given 08/10/2020 10:44 AM CDT 500 Units heparin, porcine lock flush (pf) 100 unit/mL injection 500 Units 500 Units, IV, ONE TIME ONLY, 1 dose, On Sat08/10/20 at 0930, Routine, Please tube to 516, thanks! Given 08/10/2020 10:44 AM CDT 500 Units documented in this encounter Additional Health Concerns Assessment Noted Time PHQ-9 Depression Total Score: 1 08/11/19 6:30 PM CDT documented as of this encounter Care Teams Reference Test Clerk Relationship Specialty Start Date End Date Guerrero Middleton PA-C PCP - General Physician Confectionery Laboratory Manager 02/13/18 documented as of this encounter
--- OUTSIDE RECORDS SUMMARY | 2024-05-03 20:40 | XMS_ITS | Encounter Summary ---
Author Organization [facility] Address [address] [place] [address] Care Team Providers Care Health Science Instructor Name Role Phone Guerrero Middleton PA-C Primary Care Provide r Reason for Visit * Reason Comments Medication Refill Encounter Details Date Type Department Care Team (Late st Contact Info) Description 07/04/2020 Refill [facility] [address] [place] [address] Prudence Gates MD [address] [place] [address] Social History Tobacco Use Types Packs/Day Years [...] have Coronavirus / COVID-19? No / Unsure 06/08/2020 9:32 AM DIRECTOR TELEVISION NEWS documented as of this encounter Miscellaneous Notes * Telephone Encounter - Gretchen Padilla - 07/04/2020 8:19 AM CST [facility] 05/04/20 NOV 09/15/20 CTOR TELEVISION NEWS documented in this encounter Plan of Treatment Upcoming Encounters Date Type Department Care Team (Late st Contact Info) Description 09/14/2024 3:00 PM CDT Office Visit [facility] [place] [address] [place] [address] Marlys Mayer MD [address] [place] [address] documented as of this encounter Visit Diagnoses Not on filedocumented in this encounter Care Teams Health Science Instructor Relationship Specialty Start Date End Date Guerrero Middleton PA-C PCP - General Physician Dietary Server 02/13/18 documented as of this encounter
--- OUTSIDE RECORDS SUMMARY | 2024-05-03 20:40 | XMS_ITS | Encounter Summary ---
Author Organization [facility] Address [address] [place] [address] Care Team Providers Care Manager Sterile Processing Name Role Phone Guerrero Middleton PA-C Primary Care Provide r Reason for Visit * Reason Comments Abdominal Pain Pt reports chronic p ancreatitis and abdominal pain onset yesterday. +nasuea/vomiting/diarrhea and headaches. * Auth/Cert Specialty Diagnoses / Procedures Referred By Tequila t Referred To Contact Emergency Medicine [facility] Emergency Dept [address] [place] [address] Referral ID Status Reason Start Date Expiration Date Visits Re quested Visits Authorized [id number] 1 1 Encounter Details Date Type Department Care Team (Latest Contact Info) Description 12/26/2020 8:48 PM CDT - 01/02/2021 2:16 PM CDT Hospital Encounter [facility] [address] [place] [address] [place] [address] [place] [phone] Abel Peacock MD [address] [facility] [address] [place] [address] Araceli Santo MD [address] [place] [address] Manisha Cleveland MD [address] [place] [id number] Acute on chronic pancreatitis Discharge Disposition: Home [...] have Coronavirus / COVID-19? No / Unsure 12/26/2020 6:30 PM CDT documented as of this encounter Last Filed Vital Signs Vital Sign Reading Time Taken Comments Blood Pressure 120/79 01/02/2021 7:25 AM CDT Pulse 79 01/02/2021 7:25 AM CDT Temperature 36.8 ??C (98.3 ??F) 01/02/2021 7:25 AM CD T Respiratory Rate 14 01/02/2021 7:25 AM CDT Oxygen Saturation 99% 01/02/2021 8:49 AM CDT Inhaled Oxygen Concentration - - Weight 83.9 kg (184 lb 14.4 oz) 021 12:02 AM CDT Height 165.1 cm (5' 5 ) 12/27/2020 12:0 2 AM CDT Body Mass Index 30.77 12/27/2020 12:02 AM CDT documented in this encounter Discharge Summaries * Manisha Cleveland MD - 01/02/2021 12:23 PM CDT [facility] Discharge Summary Patient Name Casandra Doss Age 45 y.o. Gender female Date of 1975 CSN [id number] Discharging Physician Manisha Cleveland MD PCP Guerrero Middleton PA-C Admit Date 12/26/2020 Discharge Date 01/02/2021 12:23 PM Length of Stay LOS: 7 days Code Status Full Code Admitting diagnosis and chief complaint: Chief Complaint Patient presents with ??? Abdominal Pain Pt reports chronic pancreatitis and abdominal pain onset yesterday. +nasuea/vomiting/diarrhea and headaches. Per H&P: Patient is a 45 y.o. female with a past medical history of recurrent pancreatitis 2/2 hypertriglyceridemia who presents with acute onset abd pain. 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 Primary discharge diagnosis: Acute on chronic pancreatitis Discharge diagnoses and problem based hospital course: Active Hospital Problems Diagnosis ??? Chronic pancreatitis ??? Acquired hypothyroidism ??? GERD (gastroesophageal reflux disease) ??? Depression with anxiety Resolved Hospital Problems Diagnosis Date Resolved ??? Acute on chronic pancreatitis 01/02/2021 Acute on chronic pancreatitis-recurrent secondary to hypertriglyceridemia. Triglycerides 3537 on admission-> 986 -> 1073-> 748 -> 588-> 515->476. Follows with endocrinology outpatient-Dr. Gates. Previously hospitalized for similar in June and July 2020. Spoke to Endocrinologyregarding treatment plan. Treated with insulin drip with D5 NS and plasmapheresis completed 12/28. Discussed with Dr. Cowan given triglyceride level post plasmapheresis, no further plasmapheresis deemed necessary and insulin drip continued until triglycerides < 500 per Endocrinology management plan. Continue [employer] statin 80 mg, fenofibrate 160 mg. Diet advance, pain improved, pt requesting dc home. ?? Familial hypertriglyceridemia- Continue [employer] statin 80 mg, fenofibrate 160 mg. Outpt plasmapheresis. ?? Diabetes- Resume [employer]TY Lantus 35 units twice daily, Metformin 500 mg twice daily, Jardiance. Anion gap initially 20, down to 9 on insulin drip. Serum ketones 1.6. Follow up Endocrinology. ?? Discharge medications and new prescriptions: Medication List CHANGE how you take these medications fenofibrate 160 mg Tablet Commonly known as: LOFIBRA What changed: See the new instructions. TAKE 1 TABLET BY MOUTH EVERY DAY Signed by: Dr. Prudence Gates MD Quantity: 90 Tablet Refills: 1 CONTINUE taking these medications Basagltere Monge U-100 Insulin 100 unit/mL pen syringe 35 units bid Signed by: Dr. Prudence Gates MD Quantity: 60 mL Refills: 1 Generic drug: insulin glargine buPROPion HCL 150 mg Sustained Release 12 hour tablet Commonly known as: WELLBUTRIN SR Take 1 Tablet (150 mg) by mouth 2 times daily. Signed by: Dr. Prudence Gates MD Quantity: 60 Tablet Refills: 6 citalopram 40 mg tablet Commonly known as: [...] Jardiance TAKE 1 TABLET BY MOUTH EVERY [employer] Signed by: Dr. Prudence Gates MD Quantity: 30 Tablet Refills: 5 Fish Oil-[place]-3 Fatty Acids 360-1,200 mg Capsule Take 2 Capsules by mouth 2 times daily with meals. Refills: 0 insulin aspart U-100 100 unit/mL pen syringe Commonly known as: NovoLOG Flexpen U-100 Insulin INJECT APPROXIMATELY 50 UNITS A DAY PER CORRECTION DOSE WITH MEALS Signed by: Dr. Coty Pierson MD Quantity: 45 mL Refills: 1 levothyroxine 200 mcg tablet Commonly known as: [...] 1,000 mg tablet Commonly known as: GLUCOPHAGE Take 1 Tablet (1,000 mg) by mouth 2 times daily with meals. Signed by: Dr. Prudence Gates MD Quantity: 180 Tablet Refills: 1 ondansetron 4 mg Tablet, Rapid Dissolve Commonly [...] Prudence Gates MD Quantity: 120 Capsule Refills: 5 Generic drug: icosapent ethyL Consultants: IP CONSULT TO IV TEAM IP CONSULT TO IV TEAM Brief synopsis of diagnostic studies this admission: CT A/P 12/26/20: IMPRESSION: 1. Mild edema adjacent to the pancreatic tail, compatible with given history of acute pancreatitis. 2. Punctate nonobstructing right renal stone. 3. Clear lungs. Labs and studies from this hospitalization needing follow up: ?? None Discharge physical exam: BP 120/79 (BP Location: Left arm, Patient Position (BP): Lying right side) Pulse 79 Temp 98.3 ??F (36.8 ??C) (Oral) Resp 14 Ht 5' 5 (1.651 m) Wt 83.9 kg (184 lb 14.4 oz) SpO2 97% BMI 30.77 kg/m?? Last documented weight: Weight: 83.9 kg (184 lb 14.4 oz) (12/27/20 0002) General alert, cooperative, no distress, appears stated age Lungs clear to auscultation bilaterally Heart regular rate and rhythm, S1, S2 normal, no murmur, click, rub or gallop Abdomen soft, non-tender, without masses or organomegaly Extremities Normal, no edema Skin Skin color, texture, turgor normal. No rashes or lesions Discharge condition: improved to baseline Disposition: home Primary Emergency Contact: José Miguel Doss Follow-up with Guerrero Middleton PA-C within 5 days after discharge. Signed: Manisha Cleveland MD [facility] For discharge questions please contact my office at . This discharge took greater than 30 minutes of time to prepare, over half of this time was spent counseling the patient and family about her condition, including instructions for the patient, interview and examination of the patient, care coordination, and discussion and instructions for the ancillary staff. documented in this encounter Medications at Time [...] tablet TAKE 1 TABLET BY MOUTH EVERY [employer] 30 Tablet 5 12/07/2020 06/01/2021 Vascepa 1 [...] as of this encounter Progress Notes * Genoveva Smyth RN - 01/02/2021 4:58 AM CDT Shift Note: pt remained on insulin drip for duration of this shift. Some complaints of abdominal pain throughout night, with prns staggered. Neuro: AOx4. CV: NSR. HR: 60-80s. BP: 110-120s Resp: clear on RA. GI: no BM this shift. : little urine output this shift. Pain/Delirium/Sleep: moderate complaints of pain throughout night treated with PRNs. Slept between care for duration of shift. Activity: Remained in bed with self turns and up to commode with standby. Shift Undress and Assess performed by two coworkers: 1. CLAU Tomas 2. PHOEBE Herrmann The patient does not have existing skin breakdown, if yes, describe: none The patient does not have new purple/sissy/dark red over ANY bony prominences (ears, elbows, knees, heels, coccyx, hips, occiput), if yes, describe: none ~If ANY answer 'yes'- please re-consult and call wound care~ Wound care consult was not in place. Wound care consult was not initiated. Are there currently any skin protectant dressings in place, if yes, where? n/a If yes, please describe condition of skin under dressing: If no, were any applied and where: Are there any currently any medical devices in place (leg immobilizers, FMS, c- collars, splints, etc.)? If yes, describe skin under device: none * Counts, Manisha Wagner MD - 01/01/2021 12:38 PM CDT Images from the original note were not included. [facility] Progress Note Date of Admission: 12/26/2020 Date of Service: 01/01/2021 Admit Date: 12/26/2020 Date of Note: 01/01/2021, 12:38 PM LOS: 6 days Previous history of present illness and review of systems have been reviewed today as documented inthe H&P on 12/26/2020; medications, labs, studies, notes, orders and consults have been reviewed. I have reviewed the notes from admission. Subjective: Pt seen this morning. Pain better controlled with dilaudid. Triglycerides remain >500. Will continue drip until < 500 and advance diet, stop dilaudid - discussed this plan with pt. Obje calling himctive: BP 120/72 (BP Location: Left arm, Patient Position (BP): Supine) Pulse 70 Temp 97.9 ??F (36.6 ??C) (Axillary) Resp 12 Ht 5' 5 (1.651 m) Wt 83.9 kg (184 lb 14.4 oz) SpO2 98% BMI 30.77 kg/m?? Temp (24hrs), Av.5 ??F (36.9 ??C), Min:97.9 ??F (36.6 ??C), Max:98.9 ??F (37.2 ??C) Exam: General: Alert, no distress. Heart: Regular rate and rhythm Lungs: Clear to auscultation bilaterally Abdomen: Soft, minimal epigastric TTP. BS + Extremities: No clubbing, cyanosis or edema Skin: Skin color, texture, turgor normal. No rashes or lesions. Warm and dry. Head: Normocephalic, atraumatic Neck: Symmetrical, trachea midline. Neuro: No focal deficits Data Base: Data Base: Lab: Results for orders placed or performed during the hospital encounter of 12/26/20 (from the past 24 hour(s)) POC GLUCOSE Result Value Ref Range POC GLUCOSE 148 (H) 74 - 99 mg/dL COMMENT, GLU POC Notified RN/MD CREDIT ASSOCIATE NAME COREY GARVEY POC GLUCOSE Result Value Ref Range POC GLUCOSE 167 (H) 74 - 99 mg/dL COMMENT, GLU POC Notified RN/MD CREDIT ASSOCIATE NAME COREY GARVEY TRIGLYCERIDE Result Value Ref Range TRIGLYCERIDE 561 (H) <150 mg/dL POC GLUCOSE Result Value Ref Range POC GLUCOSE 127 (H) 74 - 99 mg/dL COMMENT, GLU POC Notified RN/MD CREDIT ASSOCIATE NAME GURU COREYSHARON BRUMFIELD POC GLUCOSE Result Value Ref Range POC GLUCOSE 130 (H) 74 - 99 mg/dL COMMENT, GLU POC Notified RN/MD CREDIT ASSOCIATE NAME SHERWIN, PUJA POC GLUCOSE Result Value Ref Range POC GLUCOSE 165 (H) 74 - 99 mg/dL COMMENT, GLU POC Notified RN/MD CREDIT ASSOCIATE NAME COREY GARVEY POC GLUCOSE Result Value Ref Range POC GLUCOSE 138 (H) 74 - 99 mg/dL COMMENT, GLU POC Notified RN/MD CREDIT ASSOCIATE NAME COREY GARVEY POC GLUCOSE Result Value Ref Range POC GLUCOSE 113 (H) 74 - 99 mg/dL CREDIT ASSOCIATE NAME MARGARITA HOFFMAN POC GLUCOSE Result Value Ref Range POC GLUCOSE 117 (H) 74 - 99 mg/dL CREDIT ASSOCIATE NAME MARGARITA HOFFMAN POC GLUCOSE Result Value Ref Range POC GLUCOSE 144 (H) 74 - 99 mg/dL CREDIT ASSOCIATE NAME MARGARITA HOFFMAN POC GLUCOSE Result Value Ref Range POC GLUCOSE 176 (H) 74 - 99 mg/dL CREDIT ASSOCIATE NAME YAMIL LUKE POC GLUCOSE Result Value Ref Range POC GLUCOSE 121 (H) 74 - 99 mg/dL CREDIT ASSOCIATE NAME MARGARITA HOFFMAN POC GLUCOSE Result Value Ref Range POC GLUCOSE 138 (H) 74 - 99 mg/dL CREDIT ASSOCIATE NAME PHYLLIS MADERA POC GLUCOSE Result Value Ref Range POC GLUCOSE 132 (H) 74 - 99 mg/dL CREDIT ASSOCIATE NAME MARGARITA HOFFMAN POC GLUCOSE Result Value Ref Range POC GLUCOSE 131 (H) 74 - 99 mg/dL CREDIT ASSOCIATE NAME MARGARITA HOFFMAN POC GLUCOSE Result Value Ref Range POC GLUCOSE 139 (H) 74 - 99 mg/dL CREDIT ASSOCIATE NAME MARGARITA HOFFMAN POC GLUCOSE Result Value Ref Range POC GLUCOSE 168 (H) 74 - 99 mg/dL CREDIT ASSOCIATE NAME MARGARITA HOFFMAN CBC WITH DIFFERENTIAL Result Value Ref Range WBC 6.3 4.0 - 9.8 K/uL RBC 4.31 3.90 - 4.90 M/uL HEMOGLOBIN 12.7 11.8 - 14.8 g/dL HEMATOCRIT 39.5 35.5 - 44.0 % MCV 91.6 82.0 - 99.0 fL MCH 29.5 27.2 - 32.6 pg MCHC 32.2 31.5 - 35.5 g/dL RDW 14.8 (H) 11.5 - 14.5 % RDW-STDEV 50.4 (H) 37.1 - 48.7 fL PLATELETS 239 140 - 350 K/uL MPV 9.4 9.3 - 12.4 fL NEUTROPHILS 57 % LYMPHOCYTES 32 % MONOCYTES 8 % EOSINOPHILS 2 % BASOPHILS 1 % IMMATURE GRANULOCYTES 1 % NEUTROPHIL ABSOLUTE 3.60 1.90 - 7.00 K/uL LYMPHOCYTE ABSOLUTE 2.01 0.70 - 4.50 K/uL MONOCYTE ABSOLUTE 0.47 0.10 - 1.30 K/uL EOSINOPHIL ABSOLUTE 0.11 0.00 - 0.70 K/uL BASOPHILS ABSOLUTE 0.04 0.00 - 0.20 K/uL IMMATURE GRANULOCYTES ABSOLUTE 0.04 (H) 0.00 - 0.03 K/uL TRIGLYCERIDE Result Value Ref Range TRIGLYCERIDE 556 (H) <150 mg/dL POC GLUCOSE Result Value Ref Range POC GLUCOSE 164 (H) 74 - 99 mg/dL CREDIT ASSOCIATE NAME MARGARITA HOFFMAN POC GLUCOSE Result Value Ref Range POC GLUCOSE 142 (H) 74 - 99 mg/dL CREDIT ASSOCIATE NAME KATIE HERRERA POC GLUCOSE Result Value Ref Range POC GLUCOSE 134 (H) 74 - 99 mg/dL CREDIT ASSOCIATE NAME SHAINA MCKEON POC GLUCOSE Result Value Ref Range POC GLUCOSE 113 (H) 74 - 99 mg/dL CREDIT ASSOCIATE NAME ROMA MADRIGALISYN POC GLUCOSE Result Value Ref Range POC GLUCOSE 111 (H) 74 - 99 mg/dL CREDIT ASSOCIATE NAME ROMA MADRIGALISYN POC GLUCOSE Result Value Ref Range POC GLUCOSE 90 74 - 99 mg/dL CREDIT ASSOCIATE NAME ROMA MADRIGALISYN POC GLUCOSE Result Value Ref Range POC GLUCOSE 144 (H) 74 - 99 mg/dL CREDIT ASSOCIATE NAME ROMA MADRIGALISYN Assessment/Plan of Actively Managed Problems Acute on chronic pancreatitis-recurrent secondary to hypertriglyceridemia. Triglycerides 3537 on admission-> 986 -> 1073-> 748 -> 588. Follows with endocrinology outpatient-Dr. Gates. Previously hospitalized for similar in June and July 2020. Initially on insulin drip with D5 NS -> dc'd and diet advanced. Plasmapheresis completed 12/28. Discussed with Dr. Cowan given triglyceride level post plasmapheresis, insulin drip restarted 12/29 and has continued since that date. Will follow afternoon triglyceride level. Continue [employer] statin 80 mg, fenofibrate 160 mg. Dc drip, and advance diet if triglycerides < 500 This afternoon. Will also transition to PO pain meds at that time. Familial hypertriglyceridemia-followed by endocrinology. Currently getting treatment with plasmapheresis twice a month- s/p treatment on 12/28. Cont Fenofibrate 160 mg. Cont 4 gr of vascepa per day with meals when diet advanced. Follow triglyceride level. Initially on insulin drip with D5 NS -> dc'd and diet advanced. Plasmapheresis completed 12/28. Discussed with Dr. Cowan given triglyceride level post plasmapheresis, insulin drip restarted 12/29- And continues today. Will follow afternoon triglyceride level. Continue [employer] statin 80 mg, fenofibrate 160 mg. Diabetes-uncontrolled. On [employer] Lantus 35 units twice daily, Metformin 500 mg twice daily, Jardiance.Anion gap initially 20, down to 9. Serum ketones 1.6. Cont drip and today and follow afternoon triglycerides. Hypokalemia-resolved, cont to monitor Leukocytosis-noted. Neutrophil predominant. Continue to follow CBC. Now resolved. Depression with anxiety-continue [employer] Celexa, Wellbutrin, trazodone GERD (gastroesophageal reflux disease)-continue [employer] PPI Acquired hypothyroidism-continue [employer]TY Synthroid 200 mcg Tobacco use-encourage cessation. On Wellbutrin [employer]TY. Nicotine patch as needed. Quality/Safety/Core Measures/Disposition Planning: DVT Prophylaxis - Enoxaparin Pettit catheter:absent Current Code Status -Full Code Plan discussed with patient, questions answered. Current Planned Disposition - Dispo: home Manisha Cleveland MD [facility] Epic Secure Chat 7am-7pm After hours please call vHospitalist This note was transcribed using [employer] speaking computerized voice recognition without a human blue split trimmer. This report may or may not have been adjusted for typographical, grammaticaland syntax errors. Blood bank services * Phyllis Madera RN - 01/01/2021 8:12 AM CDT Pt A&Ox 4, constantly complains of pain and request Dilaudid, pain meds and Ativan given per JUN. Insulin gtt and IVF infusing as ordered. VSS * Vicki Maradiaga RN - 12/31/2020 1:25 PM CDT Pt sitting up in bed, complains of pain on and off in belly 10/06. Insulin drip continues to run, will check a triglyceride level at 1500. Started patient on clear liquids today. Will continue to monitor. * Manisha Cleveland MD - 12/31/2020 12:26 PM CDT Images from the original note were not included. [facility] Progress Note Date of Admission: 12/26/2020 Date of Service: 12/31/2020 Admit Date: 12/26/2020 Date of Note: 12/31/2020, 12:57 PM LOS: 5 days Previous history of present illness and review of systems have been reviewed today as documented inthe H&P on 12/26/2020; medications, labs, studies, notes, orders and consults have been reviewed. I have reviewed the notes from admission. Subjective: Pt seen this morning. Pain better controlled with dilaudid. Discussed with Dr. Mondragon- tiff down to 588 this morning, will hold on plasmapheresis and contnue with insulin drip. Advance diet and attempt to c IV opioids. Obje calling himctive: BP 126/73 (BP Location: Left arm, Patient Position (BP): Supine) Pulse 75 Temp 97.6 ??F (36.4 ??C) (Axillary) Resp 12 Ht 5' 5 (1.651 m) Wt 83.9 kg (184 lb 14.4 oz) SpO2 97% BMI 30.77 kg/m?? Temp (24hrs), Av.1 ??F (36.7 ??C), Min:97.5 ??F (36.4 ??C), Max:98.7 ??F (37.1 ??C) Exam: General: Alert, no distress. Heart: Regular rate and rhythm Lungs: Clear to auscultation bilaterally Abdomen: Soft, minimal epigastric TTP. BS + Extremities: No clubbing, cyanosis or edema Skin: Skin color, texture, turgor normal. No rashes or lesions. Warm and dry. Head: Normocephalic, atraumatic Neck: Symmetrical, trachea midline. Neuro: No focal deficits Data Base: Data Base: Lab: Results for orders placed or performed during the hospital encounter of 12/26/20 (from the past 24 hour(s)) POC GLUCOSE Result Value Ref Range POC GLUCOSE 134 (H) 74 - 99 mg/dL COMMENT, GLU POC Notified RN/MD CREDIT ASSOCIATE NAME JAZMINE BECK POC GLUCOSE Result Value Ref Range POC GLUCOSE 145 (H) 74 - 99 mg/dL COMMENT, GLU POC Notified RN/MD CREDIT ASSOCIATE NAME DEMETRIO MARSHALL POC GLUCOSE Result Value Ref Range POC GLUCOSE 147 (H) 74 - 99 mg/dL COMMENT, GLU POC Notified RN/MD CREDIT ASSOCIATE NAME DEMETRIO MARSHALL POC GLUCOSE Result Value Ref Range POC GLUCOSE 173 (H) 74 - 99 mg/dL CREDIT ASSOCIATE NAME JAZMINE BECK POC GLUCOSE Result Value Ref Range POC GLUCOSE 150 (H) 74 - 99 mg/dL CREDIT ASSOCIATE NAME JAZMINE BECK POC GLUCOSE Result Value Ref Range POC GLUCOSE 105 (H) 74 - 99 mg/dL COMMENT, GLU POC Notified RN/MD CREDIT ASSOCIATE NAME SOY CMKEON POC GLUCOSE Result Value Ref Range POC GLUCOSE 94 74 - 99 mg/dL COMMENT, GLU POC Notified RN/MD CREDIT ASSOCIATE NAME SOY MCKEON POC GLUCOSE Result Value Ref Range POC GLUCOSE 132 (H) 74 - 99 mg/dL COMMENT, GLU POC Notified RN/MD CREDIT ASSOCIATE NAME SOY MCKEON POC GLUCOSE Result Value Ref Range POC GLUCOSE 99 74 - 99 mg/dL COMMENT, GLU POC Notified RN/MD CREDIT ASSOCIATE NAME SOY MCKEON POC GLUCOSE Result Value Ref Range POC GLUCOSE 110 (H) 74 - 99 mg/dL CREDIT ASSOCIATE NAME PHYLLIS MADERA POC GLUCOSE Result Value Ref Range POC GLUCOSE 108 (H) 74 - 99 mg/dL COMMENT, GLU POC Notified RN/MD CREDIT ASSOCIATE NAME SOY MCKEON POC GLUCOSE Result Value Ref Range POC GLUCOSE 104 (H) 74 - 99 mg/dL CREDIT ASSOCIATE NAME PHYLLIS MADERA POC GLUCOSE Result Value Ref Range POC GLUCOSE 110 (H) 74 - 99 mg/dL COMMENT, GLU POC Notified RN/MD CREDIT ASSOCIATE NAME SOY MCKEON POC GLUCOSE Result Value Ref Range POC GLUCOSE 177 (H) 74 - 99 mg/dL COMMENT, GLU POC Notified RN/MD CREDIT ASSOCIATE NAME SOY MCKEON POC GLUCOSE Result Value Ref Range POC GLUCOSE 110 (H) 74 - 99 mg/dL COMMENT, GLU POC Notified RN/MD CREDIT ASSOCIATE NAME SOY MCKEON POC GLUCOSE Result Value Ref Range POC GLUCOSE 114 (H) 74 - 99 mg/dL CREDIT ASSOCIATE NAME PHYLLIS MADERA POC GLUCOSE Result Value Ref Range POC GLUCOSE 96 74 - 99 mg/dL CREDIT ASSOCIATE NAME SOY MCKEON CBC WITH DIFFERENTIAL Result Value Ref Range WBC 6.0 4.0 - 9.8 K/uL RBC 3.95 3.90 - 4.90 M/uL HEMOGLOBIN 11.9 11.8 - 14.8 g/dL HEMATOCRIT 36.0 35.5 - 44.0 % MCV 91.1 82.0 - 99.0 fL MCH 30.1 27.2 - 32.6 pg MCHC 33.1 31.5 - 35.5 g/dL RDW 15.0 (H) 11.5 - 14.5 % RDW-STDEV 50.5 (H) 37.1 - 48.7 fL PLATELETS 219 140 - 350 K/uL MPV 9.1 (L) 9.3 - 12.4 fL NEUTROPHILS 55 % LYMPHOCYTES 36 % MONOCYTES 6 % EOSINOPHILS 1 % BASOPHILS 0 % IMMATURE GRANULOCYTES 1 % NEUTROPHIL ABSOLUTE 3.29 1.90 - 7.00 K/uL LYMPHOCYTE ABSOLUTE 2.17 0.70 - 4.50 K/uL MONOCYTE ABSOLUTE 0.38 0.10 - 1.30 K/uL EOSINOPHIL ABSOLUTE 0.08 0.00 - 0.70 K/uL BASOPHILS ABSOLUTE 0.02 0.00 - 0.20 K/uL IMMATURE GRANULOCYTES ABSOLUTE 0.06 (H) 0.00 - 0.03 K/uL TRIGLYCERIDE Result Value Ref Range TRIGLYCERIDE 588 (H) <150 mg/dL POC GLUCOSE Result Value Ref Range POC GLUCOSE 98 74 - 99 mg/dL COMMENT, GLU POC Notified RN/MD CREDIT ASSOCIATE NAME SOY MCKEON POC GLUCOSE Result Value Ref Range POC GLUCOSE 100 (H) 74 - 99 mg/dL CREDIT ASSOCIATE NAME CATERINA PHYLLIS POC GLUCOSE Result Value Ref Range POC GLUCOSE 98 74 - 99 mg/dL CREDIT ASSOCIATE NAME BRAD ([facility])VICKI POC GLUCOSE Result Value Ref Range POC GLUCOSE 101 (H) 74 - 99 mg/dL COMMENT, GLU POC Notified RN/MD CREDIT ASSOCIATE NAME COREY GARVEY POC GLUCOSE Result Value Ref Range POC GLUCOSE 98 74 - 99 mg/dL COMMENT, GLU POC Notified RN/MD CREDIT ASSOCIATE NAME COREY GARVEY POC GLUCOSE Result Value Ref Range POC GLUCOSE 136 (H) 74 - 99 mg/dL CREDIT ASSOCIATE NAME BRAD ([facility])VICKI POC GLUCOSE Result Value Ref Range POC GLUCOSE 131 (H) 74 - 99 mg/dL COMMENT, GLU POC Notified RN/MD CREDIT ASSOCIATE NAME COREY GARVEY Assessment/Plan of Actively Managed Problems Acute on chronic pancreatitis-recurrent secondary to hypertriglyceridemia. Triglycerides 3537 on admission-> 986 -> 1073-> 748 -> 588. Follows with endocrinology outpatient-Dr. Kody. Previously hospitalized for similar in June and July 2020. Initially on insulin drip with D5 NS -> dc'd and diet advanced. Plasmapheresis completed 12/28. Discussed with Dr. Cowan given triglyceride level post plasmapheresis, insulin drip restarted 12/29- And continues today. Will follow afternoontriglyceride level. Continue DIRECTOR [employer]TY statin 80 mg, fenofibrate 160 mg. Oral pain control while on diet.Advance diet, transition of IV opioids if pt tolerates diet. Familial hypertriglyceridemia-followed by endocrinology. Currently getting treatment with plasmapheresis twice a month- s/p treatment on 12/28. Cont Fenofibrate 160 mg. Cont 4 gr of vascepa per day with meals when diet advanced. Follow triglyceride level. Initially on insulin drip with D5 NS -> dc'd and diet advanced. Plasmapheresis completed 12/28. Discussed with Dr. Cowan given triglyceride level post plasmapheresis, insulin drip restarted 12/29- And continues today. Will follow afternoon triglyceride level. Continue [employer]TY statin 80 mg, fenofibrate 160 mg. Diabetes-uncontrolled. On [employer] SPECIALTY Lantus 35 units twice daily, Metformin 500 mg twice daily, Jardiance.Anion gap initially 20, down to 9. Serum ketones 1.6. Cont drip and today and follow afternoon triglycerides. Hypokalemia-resolved, cont to monitor Leukocytosis-noted. Neutrophil predominant. Continue to follow CBC. Now resolved. Depression with anxiety-continue [employer]TY Celexa, Wellbutrin, trazodone GERD (gastroesophageal reflux disease)-continue [employer] PPI Acquired hypothyroidism-continue [employer]TY Synthroid 200 mcg Tobacco use-encourage cessation. On Wellbutrin DIRECTOR SPECIALTY. Nicotine patch as needed. Quality/Safety/Core Measures/Disposition Planning: DVT Prophylaxis - Enoxaparin Pettit catheter:absent Current Code Status -Full Code Plan discussed with patient, questions answered. Current Planned Disposition - Dispo: home Manisha Cleveland MD [facility] Epic Secure Chat 7am-7pm After hours please call ospitalist This note was transcribed using [employer] speaking computerized voice recognition without a human blue split trimmer. This report may or may not have been adjusted for typographical, grammaticaland syntax errors. Blood bank services * Jazmine Beck RN - 12/30/2020 7:28 PM CDT Shift Note: insulin drip, q1 accuchecks Neuro: A&O x 4 CV: SR Resp: room air GI: NPO : BSC Pain/Delirium/Sleep: norco and dilaudid Activity: up ad gaudencio Shift Undress and Assess performed by two coworkers: 1. CLAU Lucero 2. SADAF Hicks The patient does not have existing skin breakdown, if yes, describe: The patient does not have new purple/sissy/dark red over ANY bony prominences (ears, elbows, knees, heels, coccyx, hips, occiput), if yes, describe: ~If ANY answer 'yes'- please re-consult and call wound care~ Wound care consult was not in place. Wound care consult was not initiated. Are there currently any skin protectant dressings in place, if yes, where? n/a If yes, please describe condition of skin under dressing: If no, were any applied and where: mepilex on coccyx Are there any currently any medical devices in place (leg immobilizers, FMS, c- collars, splints, etc.)? If yes, describe skin under device: Education: Family communication: * Jazmine Beck RN - 12/30/2020 6:50 PM CDT 1845 - BG 150. No change in drip * Karen Domingo RD - 12/30/2020 6:04 PM CDT Images from the original note were not included. CLINICAL DIETITIAN PROGRESS NOTE [facility] Nutrition Risk Screen: hx malnutrition; 4 days CLD/NPO PMHx: 45 y.o. female with a past medical history of recurrent pancreatitis 2/2 hypertriglyceridemia(plasmapheresis) who presents with acute onset abd pain. Food and Nutrition Related History: Pt familiar to this RD. She has been on insulin drip for several days, held then had to be restarted for high TG still. Improved today with plasmapheresis. She is hungry and reports eating well at baseline (knows lower fat and CHO). Hopeful that diet can advance. She had more abd pain yesterday but feeling better today. Assessment: Anthropometrics: Height: 5' 5 (165.1 cm) (12/27/20 0002) Weight: 83.9 kg (184 lb 14.4 oz) (12/27/20 0002) Body mass index is 30.77 kg/m??. [place] body weight: 57 kg (125 lb 10.6 oz) Adjusted ideal body weight: 67.7 kg (149 lb 5.7 oz) Admit weight: Weight: 83.9 kg (184 lb 14.4 oz) (12/27/20 0002) Wt Readings from Last 10 Encounters: 12/27/20 83.9 kg (184 lb 14.4 oz) 09/15/20 84.4 kg (186 lb) 08/10/20 81.6 kg (180 lb) 07/10/20 83.9 kg (185 lb) 06/16/20 83.9 kg (185 lb) 05/04/20 85.7 kg (189 lb) 05/04/20 86.2 kg (190 lb) 02/29/20 86.7 kg (191 lb 3.2 oz) 12/14/19 78.9 kg (174 lb) 08/10/19 84.8 kg (187 lb) Last seven weights (if available) from 12/02/20 1805 to 12/30/20 1804 (Last 7 readings): Weight Weight Method 12/27/20 0002 83.9 kg (184 lb 14.4 oz) Actual 12/26/20 1831 83.9 kg (185 lb) Stated Past Medical History: Diagnosis Date ??? Anxiety [...] PCOS (polycystic ovarian syndrome) 05/15/2011 ??? Smoker Lab Results Component Value Date/Time NA 137 12/29/2020 05:30 AM K 3.5 12/29/2020 05:30 AM CL 104 12/29/2020 05:30 AM BUN 4 (L) 12/29/2020 05:30 AM CREAT 0.43 (L) 12/29/2020 05:30 AM GLUCOSE 116 (H) 12/29/2020 05:30 AM CA 9.3 12/29/2020 05:30 AM ALBUMIN 4.4 12/26/2020 08:16 PM GFR >60 12/29/2020 05:30 AM MG 1.8 02/27/2020 08:42 AM PO4 2.5 02/27/2020 08:42 AM Lab Results Component Value Date/Time HGBA1C 9.2 (H) 07/12/2020 05:00 AM Pert Meds: lipitor, D5 NS, fishoil, dilaudid, insulin drip, protonix Food Allergies: green pepper, aspartame Skin: intact Nutrition Prescription: DIET NPO Sips w/Meds, Intake Points: NPO/CLD Nutrition intake is meeting less than 50% of recommended nutritional needs D: Risk of malnutrition r/t inability to consume adequate nutrition as evidenced by NPO Nutrition Needs: 1680 kcal (20 kcal/kg) 84-109 g protein (1-1.3 g/kg) 2100 ml normal fluid needs I:Nutrition Intervention: 1. Pt eager to eat and has an appetite 2. Monitor for diet advancement. If unable to advance in the next 24-48 hrs, highly recommend nutrition support. -if PPN, suggest 90ml/hr with 100g AA, 110g dextrose, 10g lipids, providing 874 kcal. Electrolytes determined on day of initiation. With high TG, cannot give as much lipid, which limit kcals in PPN -if TF, place post-pyloric and suggest Vital 1.2 at goal of 55ml/hr Goal: Initiation of nutrition/diet M/E: 1. Continue to monitor: Anthropometrics, Digestive, Skin, and Biochemical data 2. Follow up every 4-7 days and as needed. ARMAND Larose Contact via [employer] Secure Chat Phone #: [phone] * Jazmine Beck RN - 12/30/2020 4:05 PM CDT 1500 - BG 145, no change in drip 1600 - BG 147, no change in drip * Manisha Cleveland MD - 12/30/2020 1:21 PM CDT Images from the original note were not included. [facility] Progress Note Date of Admission: 12/26/2020 Date of Service: 12/30/2020 Admit Date: 12/26/2020 Date of Note: 12/30/2020, 1:22 PM LOS: 4 days Previous history of present illness and review of systems have been reviewed today as documented inthe H&P on 12/26/2020; medications, labs, studies, notes, orders and consults have been reviewed. I have reviewed the notes from admission. Subjective: Pt seen this morning. Had severe pain yesterday, not controlled with morphine, did better with dilaudid. Pain still at a 6 this morning. Some improvement in triglycerides with plasmapheresis. Obje calling himctive: BP 118/70 (BP Location: Left arm, Patient Position (BP): Lying left side) Pulse 82 Temp 97.7 ??F (36.5 ??C) (Oral) Resp 13 Ht 5' 5 (1.651 m) Wt 83.9 kg (184 lb 14.4 oz) SpO2 96% BMI 30.77 kg/m?? Temp (24hrs), Av.2 ??F (36.8 ??C), Min:97.7 ??F (36.5 ??C), Max:98.6 ??F (37 ??C) Exam: General: Alert, no distress. Heart: Regular rate and rhythm Lungs: Clear to auscultation bilaterally Abdomen: Soft, minimal epigastric TTP. BS + Extremities: No clubbing, cyanosis or edema Skin: Skin color, texture, turgor normal. No rashes or lesions. Warm and dry. Head: Normocephalic, atraumatic Neck: Symmetrical, trachea midline. Neuro: No focal deficits Data Base: Data Base: Lab: Results for orders placed or performed during the hospital encounter of 12/26/20 (from the past 24 hour(s)) POC GLUCOSE Result Value Ref Range POC GLUCOSE 105 (H) 74 - 99 mg/dL COMMENT, GLU POC Notified RN/MD CREDIT ASSOCIATE NAME JAZMINE BECK POC GLUCOSE Result Value Ref Range POC GLUCOSE 58 (L) 74 - 99 mg/dL COMMENT, GLU POC Notified RN/MD CREDIT ASSOCIATE NAME VITAKAYLYN LIGIA POC GLUCOSE Result Value Ref Range POC GLUCOSE 60 (L) 74 - 99 mg/dL COMMENT, GLU POC Notified RN/MD CREDIT ASSOCIATE NAME JAZMINE BECK POC GLUCOSE Result Value Ref Range POC GLUCOSE 77 74 - 99 mg/dL CREDIT ASSOCIATE NAME JAZMINE BECK POC GLUCOSE Result Value Ref Range POC GLUCOSE 126 (H) 74 - 99 mg/dL COMMENT, GLU POC Notified RN/MD CREDIT ASSOCIATE NAME LIGIA EMERY POC GLUCOSE Result Value Ref Range POC GLUCOSE 130 (H) 74 - 99 mg/dL COMMENT, GLU POC Notified RN/MD CREDIT ASSOCIATE NAME RUPERT LIGIA POC GLUCOSE Result Value Ref Range POC GLUCOSE 113 (H) 74 - 99 mg/dL COMMENT, GLU POC Notified RN/MD CREDIT ASSOCIATE NAME LIGIA EMREY POC GLUCOSE Result Value Ref Range POC GLUCOSE 72 (L) 74 - 99 mg/dL CREDIT ASSOCIATE NAME [facility] JEFFRY POC GLUCOSE Result Value Ref Range POC GLUCOSE 90 74 - 99 mg/dL CREDIT ASSOCIATE NAME [facility] POC GLUCOSE Result Value Ref Range POC GLUCOSE 145 (H) 74 - 99 mg/dL CREDIT ASSOCIATE NAME JERRYGurwinderJET POC GLUCOSE Result Value Ref Range POC GLUCOSE 181 (H) 74 - 99 mg/dL CREDIT ASSOCIATE NAME [facility] POC GLUCOSE Result Value Ref Range POC GLUCOSE 176 (H) 74 - 99 mg/dL CREDIT ASSOCIATE NAME [facility] POC GLUCOSE Result Value Ref Range POC GLUCOSE 166 (H) 74 - 99 mg/dL CREDIT ASSOCIATE NAME [facility] POC GLUCOSE Result Value Ref Range POC GLUCOSE 134 (H) 74 - 99 mg/dL CREDIT ASSOCIATE NAME [facility] POC GLUCOSE Result Value Ref Range POC GLUCOSE 147 (H) 74 - 99 mg/dL CREDIT ASSOCIATE NAME JEFFRY CARO POC GLUCOSE Result Value Ref Range POC GLUCOSE 144 (H) 74 - 99 mg/dL CREDIT ASSOCIATE NAME JEFFRY CARO POC GLUCOSE Result Value Ref Range POC GLUCOSE 110 (H) 74 - 99 mg/dL CREDIT ASSOCIATE NAME JEFFRY CARO CBC WITH DIFFERENTIAL Result Value Ref Range WBC 4.8 4.0 - 9.8 K/uL RBC 3.88 (L) 3.90 - 4.90 M/uL HEMOGLOBIN 11.7 (L) 11.8 - 14.8 g/dL HEMATOCRIT 35.8 35.5 - 44.0 % MCV 92.3 82.0 - 99.0 fL MCH 30.2 27.2 - 32.6 pg MCHC 32.7 31.5 - 35.5 g/dL RDW 15.0 (H) 11.5 - 14.5 % RDW-STDEV 50.8 (H) 37.1 - 48.7 fL PLATELETS 211 140 - 350 K/uL MPV 8.8 (L) 9.3 - 12.4 fL NEUTROPHILS 55 % LYMPHOCYTES 36 % MONOCYTES 7 % EOSINOPHILS 2 % BASOPHILS 0 % IMMATURE GRANULOCYTES 0 % NEUTROPHIL ABSOLUTE 2.65 1.90 - 7.00 K/uL LYMPHOCYTE ABSOLUTE 1.70 0.70 - 4.50 K/uL MONOCYTE ABSOLUTE 0.31 0.10 - 1.30 K/uL EOSINOPHIL ABSOLUTE 0.09 0.00 - 0.70 K/uL BASOPHILS ABSOLUTE 0.01 0.00 - 0.20 K/uL IMMATURE GRANULOCYTES ABSOLUTE 0.02 0.00 - 0.03 K/uL TRIGLYCERIDE Result Value Ref Range TRIGLYCERIDE 748 (H) <150 mg/dL POC GLUCOSE Result Value Ref Range POC GLUCOSE 104 (H) 74 - 99 mg/dL CREDIT ASSOCIATE NAME JEFFRY CARO POC GLUCOSE Result Value Ref Range POC GLUCOSE 119 (H) 74 - 99 mg/dL CREDIT ASSOCIATE NAME JEFFRY CARO POC GLUCOSE Result Value Ref Range POC GLUCOSE 167 (H) 74 - 99 mg/dL CREDIT ASSOCIATE NAME EMILY BURGESSSAMI POC GLUCOSE Result Value Ref Range POC GLUCOSE 123 (H) 74 - 99 mg/dL CREDIT ASSOCIATE NAME HUDSON REMY POC GLUCOSE Result Value Ref Range POC GLUCOSE 136 (H) 74 - 99 mg/dL CREDIT ASSOCIATE NAME JENIFEREMIL[facility]OUTHWOOD [facility]ATRIC HOSPITALKathy POC GLUCOSE Result Value Ref Range POC GLUCOSE 122 (H) 74 - 99 mg/dL CREDIT ASSOCIATE NAME JENIFERDOREEN POC GLUCOSE Result Value Ref Range POC GLUCOSE 106 (H) 74 - 99 mg/dL CREDIT ASSOCIATE NAME DOREEN BURGESS POC GLUCOSE Result Value Ref Range POC GLUCOSE 103 (H) 74 - 99 mg/dL CREDIT ASSOCIATE NAME JAZMINE BECK Assessment/Plan of Actively Managed Problems Acute on chronic pancreatitis-recurrent secondary to hypertriglyceridemia. Triglycerides 3537 on admission-> 986 -> 1073-> 748. Follows with endocrinology outpatient-Dr. Gates. Previouslyhospitalized for similar in June and July 2020. Initially on insulin drip with D5 NS -> dc'd and diet advanced. Plasmapheresis completed 12/28. Discussed with Dr. Cowan given triglyceride level post plasmapheresis, insulin drip restarted 12/29- continue today and follow level. Spoke with Dr. Cowan regarding plasmapheresis on 12/30. Continue [employer] statin 80 mg, fenofibrate 160 mg. Oral pain controlwhile on diet. Change morphine to dilaudid PRN. Familial hypertriglyceridemia-followed by endocrinology. Currently getting treatment with plasmapheresis twice a month- s/p treatment on 12/28. Cont Fenofibrate 160 mg. Cont 4 gr of vascepa per day with meals when diet advanced. Follow triglyceride level. Initially on insulin drip with D5 NS -> dc'd and diet advanced. Plasmapheresis completed 12/28. Discussed with Dr. Cowan given triglyceride level post plasmapheresis, insulin drip restarted 12/29- continue today and follow level. Spoke with Dr. Cowan regarding plasmapheresis on 12/30. Continue [employer] statin 80 mg, fenofibrate 160 mg. Diabetes-uncontrolled. On [employer] [facility] Lantus 35 units twice daily, Metformin 500 mg twice daily, Jardiance.Anion gap initially 20, now down to 9. Serum ketones 1.6. Restart insulin drip with D5 for triglycerides (as above) and monitor BG levels. Hypokalemia-resolved, cont to monitor Leukocytosis-noted. Neutrophil predominant. Continue to follow CBC. Now resolved. Depression with anxiety-continue [employer] [facility] Celexa, Wellbutrin, trazodone GERD (gastroesophageal reflux disease)-continue [employer] [facility] PPI Acquired hypothyroidism-continue [employer] [facility] Synthroid 200 mcg Tobacco use-encourage cessation. On Wellbutrin [employer] [facility]. Nicotine patch as needed. Quality/Safety/Core Measures/Disposition Planning: DVT Prophylaxis - Enoxaparin Pettit catheter:absent Current Code Status -Full Code Plan discussed with patient, questions answered. Current Planned Disposition - Dispo: home Manisha Cleveland MD [facility] Epic Secure Chat 7am-7pm After hours please call ospitalist This note was transcribed using [employer] speaking computerized voice recognition without a human blue split trimmer. This report may or may not have been adjusted for typographical, grammaticaland syntax errors. Blood bank services * Jazmine Beck RN - 12/30/2020 9:51 AM CDT 0945 - BG 136, no change for drip. * Jeffry Caro RN - 12/30/2020 6:40 AM CDT No acute events this shift. A&Ox4. VSS. Q1H BS checks and insulin gtt going per JUN. Given norco and morphine for abd pain per JUN. * Jazmine Beck RN - 12/29/2020 6:40 PM CDT 1730 - no rate change for insulin drip 1830 - no rate change for insulin drip * Jazmine Beck RN - 12/29/2020 6:07 PM CDT Shift Note: Patient currently on an insulin drip with D5NS at 125 mL/hr Neuro: A&O x 4 CV: SR Resp: room air GI: NPO : WDL Pain/Delirium/Sleep: pain only controlled after dilaudid administered Activity: up to BSC Shift Undress and Assess performed by two coworkers: 1. CLAU Lucero 2. SADAF Trinidad The patient does not have existing skin breakdown, if yes, describe: The patient does not have new purple/sissy/dark red over ANY bony prominences (ears, elbows, knees, heels, coccyx, hips, occiput), if yes, describe: ~If ANY answer 'yes'- please re-consult and call wound care~ Wound care consult was not in place. Wound care consult was not initiated. Are there currently any skin protectant dressings in place, if yes, where? n/a If yes, please describe condition of skin under dressing: If no, were any applied and where: mepilex on coccyx Are there any currently any medical devices in place (leg immobilizers, FMS, c- collars, splints, etc.)? If yes, describe skin under device: Education: Family communication: * Megha, Manisha Wagner MD - 12/29/2020 10:29 AM CDT Images from the original note were not included. [facility] Progress Note Date of Admission: 12/26/2020 Date of Service: 12/29/2020 Admit Date: 12/26/2020 Date of Note: 12/29/2020, 10:29 AM LOS: 3 days Previous history of present illness and review of systems have been reviewed today as documented inthe H&P on 12/26/2020; medications, labs, studies, notes, orders and consults have been reviewed. I have reviewed the notes from admission. Subjective: Pt seen this morning. Clear liquid diet is going well, limited pain. Triglycerides up slightly after plasmapheresis. Objective: BP 106/65 (BP Location: Left arm, Patient Position (BP): Lying right side) Pulse 76 Temp 97.6 ??F (36.4 ??C) (Oral) Resp 16 Ht 5' 5 (1.651 m) Wt 83.9 kg (184 lb 14.4 oz) SpO2 95% BMI 30.77 kg/m?? Temp (24hrs), Av.1 ??F (36.7 ??C), Min:97.6 ??F (36.4 ??C), Max:98.4 ??F (36.9 ??C) Exam: General: Alert, no distress. Heart: Regular rate and rhythm Lungs: Clear to auscultation bilaterally Abdomen: Soft, minimal epigastric TTP. BS + Extremities: No clubbing, cyanosis or edema Skin: Skin color, texture, turgor normal. No rashes or lesions. Warm and dry. Head: Normocephalic, atraumatic Neck: Symmetrical, trachea midline. Neuro: No focal deficits Data Base: Data Base: Lab: Results for orders placed or performed during the hospital encounter of 12/26/20 (from the past 24 hour(s)) POC GLUCOSE Result Value Ref Range POC GLUCOSE 136 (H) 74 - 99 mg/dL CREDIT ASSOCIATE NAME INGRIS DYSON POC GLUCOSE Result Value Ref Range POC GLUCOSE 180 (H) 74 - 99 mg/dL COMMENT, GLU POC Notified RN/MD CREDIT ASSOCIATE NAME LIGIA EMERY POC GLUCOSE Result Value Ref Range POC GLUCOSE 148 (H) 74 - 99 mg/dL CREDIT ASSOCIATE NAME INGRIS DYSON POC GLUCOSE Result Value Ref Range POC GLUCOSE 149 (H) 74 - 99 mg/dL COMMENT, GLU POC Notified RN/MD CREDIT ASSOCIATE NAME LIGIA EMERY POC GLUCOSE Result Value Ref Range POC GLUCOSE 169 (H) 74 - 99 mg/dL CREDIT ASSOCIATE NAME JEFFRY CARO BASIC METABOLIC PANEL Result Value Ref Range SODIUM 137 136 - 145 mmol/L POTASSIUM 3.5 3.5 - 5.0 mmol/L CHLORIDE 104 98 - 107 mmol/L CO2 21 (L) 22 - 29 mmol/L CALCIUM 9.3 8.6 - 10.2 mg/dL BUN 4 (L) 6 - 20 mg/dL CREATININE 0.43 (L) 0.51 - 0.95 mg/dL GLUCOSE 116 (H) 74 - 99 mg/dL GFR >60 mL/min/1.73 sq meter GFR, >60 mL/min/1.73 sq meter ANION GAP 12 8 - 16 mmol/L CBC WITH DIFFERENTIAL Result Value Ref Range WBC 5.4 4.0 - 9.8 K/uL RBC 4.42 3.90 - 4.90 M/uL HEMOGLOBIN 13.3 11.8 - 14.8 g/dL HEMATOCRIT 39.9 35.5 - 44.0 % MCV 90.3 82.0 - 99.0 fL MCH 30.1 27.2 - 32.6 pg MCHC 33.3 31.5 - 35.5 g/dL RDW 15.0 (H) 11.5 - 14.5 % RDW-STDEV 50.0 (H) 37.1 - 48.7 fL PLATELETS 222 140 - 350 K/uL MPV 9.1 (L) 9.3 - 12.4 fL NEUTROPHILS 69 % LYMPHOCYTES 24 % MONOCYTES 5 % EOSINOPHILS 1 % BASOPHILS 0 % IMMATURE GRANULOCYTES 0 % NEUTROPHIL ABSOLUTE 3.76 1.90 - 7.00 K/uL LYMPHOCYTE ABSOLUTE 1.30 0.70 - 4.50 K/uL MONOCYTE ABSOLUTE 0.27 0.10 - 1.30 K/uL EOSINOPHIL ABSOLUTE 0.06 0.00 - 0.70 K/uL BASOPHILS ABSOLUTE 0.02 0.00 - 0.20 K/uL IMMATURE GRANULOCYTES ABSOLUTE 0.02 0.00 - 0.03 K/uL TRIGLYCERIDE Result Value Ref Range TRIGLYCERIDE 1,073 (H) <150 mg/dL Assessment/Plan of Actively Managed Problems Acute on chronic pancreatitis-recurrent secondary to hypertriglyceridemia. Triglycerides 3537 on admission-> 986 -> 1073. Follows with endocrinology outpatient-Dr. Gates. Previously hospitalized for similar in June and July 2020. Initially on insulin drip with D5 NS -> dc'd and diet advanced. Plasmapheresis completed 12/28. Discussed with Dr. Arteaga given triglyceride level, will restart insulin drip today and monitor triglycerides. Consider plasmapheresis on 12/30 if not improved on the drip. Continue [employer] [facility] statin 80 mg, fenofibrate 160 mg. Oral pain control while on diet. Familial hypertriglyceridemia-followed by endocrinology. Currently getting treatment with plasmapheresis twice a month- s/p treatment on 12/28. Cont. Fenofibrate 160 mg. Cont 4 gr of vascepa per day with meals when diet advanced. Follow triglyceride level. Discussed with Dr. Arteaga, will restart insulin drip and monitor triglycerides. Consider plasmapheresis on 12/30 if not improved on the drip. Continue [employer] [facility] statin 80 mg, fenofibrate 160 mg. Diabetes-uncontrolled. On [employer] [facility] Lantus 35 units twice daily, Metformin 500 mg twice daily, Jardiance.Anion gap initially 20, now down to 9. Serum ketones 1.6. Restart insulin drip with D5 for triglycerides (as above) and monitor BG levels. Hypokalemia-resolved, cont to monitor Leukocytosis-noted. Neutrophil predominant. Continue to follow CBC. Now resolved. Depression with anxiety-continue [employer] Celexa, Wellbutrin, trazodone GERD (gastroesophageal reflux disease)-continue [employer] PPI Acquired hypothyroidism-continue [employer] [facility] Synthroid 200 mcg Tobacco use-encourage cessation. On Wellbutrin [employer] [facility]. Nicotine patch as needed. Quality/Safety/Core Measures/Disposition Planning: DVT Prophylaxis - Enoxaparin Pettit catheter:absent Current Code Status -Full Code Plan discussed with patient, questions answered. Current Planned Disposition - Dispo: home Manisha Cleveland MD [facility] Epic Secure Chat 7am-7pm After hours please call vHospitalist This note was transcribed using [employer] speaking computerized voice recognition without a human blue split trimmer. This report may or may not have been adjusted for typographical, grammaticaland syntax errors. * Jeffry Caro RN - 12/29/2020 6:24 AM CDT No acute events this shift. A&Ox4. VSS. Given norco for abd pain. * Gretchen Rosales RN - 12/28/2020 5:44 PM CDT Pt A&O X 4, VSS, assumed care of pt @ 1530, C/O pain, relieved by pain meds documented in JUN, will continue to monitor. * Nicole Mondragon MD - 12/28/2020 5:07 PM CDT CC: ??45??yo female undergoing prophylaxis for??hypertriglyceridemic pancreatitis in the setting of?recurrent necrotizing pancreatitis requires??plasma exchange. ?? Interval history:??Patient admitted 12/26/20 for acute on chronic pancreatitis. Was scheduled for 12/28/20 PLEX as an outpatient. ?? PMH:??Familial hypertriglyceridemia (associated with prior episodes [...] x??4 - Conversant but appears fatigued ?Labs: 12/28/20 WBC??7.0, hemoglobin 11.3, hematocrit 34.8,?platelets??239 Preprocedure triglycerides??986 ?? A&P: 1. 45??yo female with??recurrent??hypertriglyceridemic pancreatitis [...] the procedure. ?? 3. Plan to see patient??in 3 weeks for her next procedure as an outpatient.? I have seen and examined the patient, reviewed pertinent notes and records, and remained immediately available throughout the procedure. ?? Nicole Mondragon MD [employer], therapeutic apheresis service [phone] ?? Procedure??notes: Patient tolerated procedure well. * Daniel Whitehead RN - 12/28/2020 4:44 PM CDT Plasma exchange completed today using left and right chest BARD ports for draw and return. 1.0 volume, 100% fluid balance using 5% Albumin as replacement fluid completed. 2 grams calcium gluconate given intra procedure. Patient tolerated procedure well. Patient will contact Dr. Mondragon regarding next outpatient procedure. * Counts, Manisha Wagner MD - 12/28/2020 2:55 PM CDT Images from the original note were not included. [facility] Progress Note Date of Admission: 12/26/2020 Date of Service: 12/28/2020 Admit Date: 12/26/2020 Date of Note: 12/28/2020, 2:55 PM LOS: 2 days Previous history of present illness and review of systems have been reviewed today as documented inthe H&P on 12/26/2020; medications, labs, studies, notes, orders and consults have been reviewed. I have reviewed the notes from admission. Subjective: Pt seen in bedside chair this morning. Reports she is ready to try PO. Called blood bank services and discussed with pathology- on schedule for plasmapheresis today. Spoke to Endocrinology regarding plan, will cancel formal consult. Objective: BP 113/81 Pulse 92 Temp 98.4 ??F (36.9 ??C) (Oral) Resp 20 Ht 5' 5 (1.651 m) Wt 83.9 kg (184 lb 14.4 oz) SpO2 96% BMI 30.77 kg/m?? Temp (24hrs), Av.3 ??F (36.8 ??C), Min:98.1 ??F (36.7 ??C), Max:98.8 ??F (37.1 ??C) Exam: General: Alert, no distress. Heart: Regular rate and rhythm Lungs: Clear to auscultation bilaterally Abdomen: Soft,epigastric TTP. BS + Extremities: No clubbing, cyanosis or edema Skin: Skin color, texture, turgor normal. No rashes or lesions. Warm and dry. Head: Normocephalic, atraumatic Neck: Symmetrical, trachea midline. Neuro: No focal deficits Data Base: Data Base: Lab: Results for orders placed or performed during the hospital encounter of 12/26/20 (from the past 24 hour(s)) POC GLUCOSE Result Value Ref Range POC GLUCOSE 79 74 - 99 mg/dL CREDIT ASSOCIATE NAME JEFF BURROWS TRIGLYCERIDE Result Value Ref Range TRIGLYCERIDE 1,341 (H) <150 mg/dL POC GLUCOSE Result Value Ref Range POC GLUCOSE 85 74 - 99 mg/dL CREDIT ASSOCIATE NAME JEFF BURROWS POC GLUCOSE Result Value Ref Range POC GLUCOSE 75 74 - 99 mg/dL CREDIT ASSOCIATE NAME KATIA DIAZ POC GLUCOSE Result Value Ref Range POC GLUCOSE 74 74 - 99 mg/dL CREDIT ASSOCIATE NAME KATIA DIAZ POC GLUCOSE Result Value Ref Range POC GLUCOSE 79 74 - 99 mg/dL CREDIT ASSOCIATE NAME [facility] POC GLUCOSE Result Value Ref Range POC GLUCOSE 85 74 - 99 mg/dL CREDIT ASSOCIATE NAME [facility] POC GLUCOSE Result Value Ref Range POC GLUCOSE 95 74 - 99 mg/dL CREDIT ASSOCIATE NAME [facility] POC GLUCOSE Result Value Ref Range POC GLUCOSE 85 74 - 99 mg/dL CREDIT ASSOCIATE NAME [facility] POC GLUCOSE Result Value Ref Range POC GLUCOSE 108 (H) 74 - 99 mg/dL CREDIT ASSOCIATE NAME [facility] POC GLUCOSE Result Value Ref Range POC GLUCOSE 97 74 - 99 mg/dL CREDIT ASSOCIATE NAME [facility] POC GLUCOSE Result Value Ref Range POC GLUCOSE 116 (H) 74 - 99 mg/dL CREDIT ASSOCIATE NAME [facility] BASIC METABOLIC PANEL Result Value Ref Range SODIUM 137 136 - 145 mmol/L POTASSIUM 3.5 3.5 - 5.0 mmol/L CHLORIDE 109 (H) 98 - 107 mmol/L CO2 19 (L) 22 - 29 mmol/L CALCIUM 7.9 (L) 8.6 - 10.2 mg/dL BUN 3 (L) 6 - 20 mg/dL CREATININE 0.40 (L) 0.51 - 0.95 mg/dL GLUCOSE 119 (H) 74 - 99 mg/dL GFR >60 mL/min/1.73 sq meter GFR, >60 mL/min/1.73 sq meter ANION GAP 9 8 - 16 mmol/L CBC WITH DIFFERENTIAL Result Value Ref Range WBC 7.0 4.0 - 9.8 K/uL RBC 3.80 (L) 3.90 - 4.90 M/uL HEMOGLOBIN 11.3 (L) 11.8 - 14.8 g/dL HEMATOCRIT 34.8 (L) 35.5 - 44.0 % MCV 91.4 82.0 - 99.0 fL MCH 29.7 27.2 - 32.6 pg MCHC 32.5 31.5 - 35.5 g/dL RDW 15.3 (H) 11.5 - 14.5 % RDW-STDEV 51.8 (H) 37.1 - 48.7 fL PLATELETS 239 140 - 350 K/uL MPV 8.8 (L) 9.3 - 12.4 fL NEUTROPHILS 70 % LYMPHOCYTES 25 % MONOCYTES 4 % EOSINOPHILS 1 % BASOPHILS 0 % IMMATURE GRANULOCYTES 1 % NEUTROPHIL ABSOLUTE 4.84 1.90 - 7.00 K/uL LYMPHOCYTE ABSOLUTE 1.70 0.70 - 4.50 K/uL MONOCYTE ABSOLUTE 0.29 0.10 - 1.30 K/uL EOSINOPHIL ABSOLUTE 0.05 0.00 - 0.70 K/uL BASOPHILS ABSOLUTE 0.02 0.00 - 0.20 K/uL IMMATURE GRANULOCYTES ABSOLUTE 0.05 (H) 0.00 - 0.03 K/uL TRIGLYCERIDE Result Value Ref Range TRIGLYCERIDE 986 (H) <150 mg/dL POC GLUCOSE Result Value Ref Range POC GLUCOSE 120 (H) 74 - 99 mg/dL CREDIT ASSOCIATE NAME [facility] POC GLUCOSE Result Value Ref Range POC GLUCOSE 119 (H) 74 - 99 mg/dL COMMENT, GLU POC Notified RN/MD CREDIT ASSOCIATE NAME SATISHHILARYVANGIE IVETT Brittni POC GLUCOSE Result Value Ref Range POC GLUCOSE 117 (H) 74 - 99 mg/dL CREDIT ASSOCIATE NAME [facility] POC GLUCOSE Result Value Ref Range POC GLUCOSE 125 (H) 74 - 99 mg/dL CREDIT ASSOCIATE NAME [facility] POC GLUCOSE Result Value Ref Range POC GLUCOSE 130 (H) 74 - 99 mg/dL CREDIT ASSOCIATE NAME INGRIS DYSON POC GLUCOSE Result Value Ref Range POC GLUCOSE 127 (H) 74 - 99 mg/dL COMMENT, GLU POC Notified RN/MD CREDIT ASSOCIATE NAME LIGIA EMERY POC GLUCOSE Result Value Ref Range POC GLUCOSE 136 (H) 74 - 99 mg/dL CREDIT ASSOCIATE NAME INGRIS DYSON POC GLUCOSE Result Value Ref Range POC GLUCOSE 180 (H) 74 - 99 mg/dL COMMENT, GLU POC Notified RN/MD CREDIT ASSOCIATE NAME LIGIA EMERY POC GLUCOSE Result Value Ref Range POC GLUCOSE 148 (H) 74 - 99 mg/dL CREDIT ASSOCIATE NAME INGRIS DYSON Assessment/Plan of Actively Managed Problems Acute on chronic pancreatitis-recurrent secondary to hypertriglyceridemia. Triglycerides 3537 on admission-> 986. Follows with endocrinology outpatient-Dr. Gates. Previously hospitalized for similar in June and July 2020. Initially on insulin drip with D5 NS -> dc'd and diet advanced. Plasmapheresis today. Continue [employer] statin 80 mg, fenofibrate 160 mg. Oral pain control while on diet. Familial hypertriglyceridemia-followed by endocrinology. Currently getting treatment with plasmapheresis twice a month-reports she is due for her next treatment on 12/28/2020- coordinated with blood bank, will be scheduled today. Fenofibrate 160 mg. Cont 4 gr of vascepa per day with meals hen diet advanced. Follow triglyceride level. Diabetes-uncontrolled. On [employer] Lantus 35 units twice daily, Metformin 500 mg twice daily, Jardiance.Anion gap initially 20, now down to 9. Serum ketones 1.6. Initially on insulin drip, will restart [employer] lantus at lower dose of 20 BID and monitor trend with PO intake. Hypokalemia-resolved, cont to monitor Leukocytosis-noted. Neutrophil predominant. Continue to follow CBC. Now resolved. Depression with anxiety-continue [employer] Celexa, Wellbutrin, trazodone GERD (gastroesophageal reflux disease)-continue [employer] PPI Acquired hypothyroidism-continue [employer] Synthroid 200 mcg Tobacco use-encourage cessation. On Wellbutrin [employer]. Nicotine patch as needed. Quality/Safety/Core Measures/Disposition Planning: DVT Prophylaxis - Enoxaparin Pettit catheter:absent Current Code Status -Full Code Plan discussed with patient, questions answered. Current Planned Disposition - Dispo: home Manisha Cleveland MD [facility] Epic Secure Chat 7am-7pm After hours please call ospitalist This note was transcribed using [employer] naturally speaking computerized voice recognition without a human blue split trimmer. This report may or may not have been adjusted for typographical, grammaticaland syntax errors. * Jeffry Caro RN - 12/28/2020 6:17 AM CDT Shift Note: BS checked q1h, insulin gtt going per MAR Neuro: x4, given dilaudid for abd pain CV: NSR, SBP 100s-110s, afebrile Resp: Ra, clear GI: last BM [employer] : BSC Activity: self turn, standby * Counts, Manisha Wagner MD - 12/27/2020 2:54 PM CDT Images from the original note were not included. [facility] Progress Note Date of Admission: 12/26/2020 Date of Service: 12/27/2020 Admit Date: 12/26/2020 Date of Note: 12/27/2020, 2:54 PM LOS: 1 day Previous history of present illness and review of systems have been reviewed today as documented inthe H&P on 12/26/2020; medications, labs, studies, notes, orders and consults have been reviewed. I have reviewed the notes from admission. Subjective: Pt seen in bedside chair this morning. Reports continued epigastric pain. Objective: BP 97/65 Pulse 82 Temp 98.2 ??F (36.8 ??C) (Oral) Resp 12 Ht 5' 5 (1.651 m) Wt 83.9 kg (184 lb 14.4 oz) SpO2 95% BMI 30.77 kg/m?? Temp (24hrs), Av.6 ??F (37 ??C), Min:98 ??F (36.7 ??C), Max:99.4 ??F (37.4 ??C) Exam: General: Alert, no distress. Heart: Regular rate and rhythm Lungs: Clear to auscultation bilaterally Abdomen: Soft,epigastric TTP. BS + Extremities: No clubbing, cyanosis or edema Skin: Skin color, texture, turgor normal. No rashes or lesions. Warm and dry. Head: Normocephalic, atraumatic Neck: Symmetrical, trachea midline. Neuro: No focal deficits Data Base: Data Base: Lab: Results for orders placed or performed during the hospital encounter of 12/26/20 (from the past 24 hour(s)) CBC WITH DIFFERENTIAL Result Value Ref Range WBC 17.9 (H) 4.0 - 9.8 K/uL RBC 5.01 (H) 3.90 - 4.90 M/uL HEMOGLOBIN 15.0 (H) 11.8 - 14.8 g/dL HEMATOCRIT 44.0 35.5 - 44.0 % MCV 87.8 82.0 - 99.0 fL MCH 29.9 27.2 - 32.6 pg MCHC 34.1 31.5 - 35.5 g/dL RDW 14.3 11.5 - 14.5 % RDW-STDEV 45.6 37.1 - 48.7 fL PLATELETS 412 (H) 140 - 350 K/uL MPV 8.9 (L) 9.3 - 12.4 fL NEUTROPHILS 79 % LYMPHOCYTES 15 % MONOCYTES 4 % EOSINOPHILS 1 % BASOPHILS 0 % IMMATURE GRANULOCYTES 1 % NEUTROPHIL ABSOLUTE 14.17 (H) 1.90 - 7.00 K/uL LYMPHOCYTE ABSOLUTE 2.67 0.70 - 4.50 K/uL MONOCYTE ABSOLUTE 0.76 0.10 - 1.30 K/uL EOSINOPHIL ABSOLUTE 0.14 0.00 - 0.70 K/uL BASOPHILS ABSOLUTE 0.08 0.00 - 0.20 K/uL IMMATURE GRANULOCYTES ABSOLUTE 0.11 (H) 0.00 - 0.03 K/uL COMPREHENSIVE METABOLIC PANEL Result Value Ref Range SODIUM 136 136 - 145 mmol/L POTASSIUM 4.1 3.5 - 5.0 mmol/L CHLORIDE 98 98 - 107 mmol/L CO2 18 (L) 22 - 29 mmol/L CALCIUM 9.7 8.6 - 10.2 mg/dL BUN 7 6 - 20 mg/dL CREATININE 0.41 (L) 0.51 - 0.95 mg/dL GLUCOSE 98 74 - 99 mg/dL TOTAL PROTEIN 7.5 6.7 - 8.6 g/dL ALBUMIN 4.4 3.5 - 5.2 g/dL BILIRUBIN TOTAL 0.4 0.3 - 1.2 mg/dL ALKALINE PHOSPHATASE 91 35 - 104 U/L AST 17 <33 U/L ALT 13 <34 U/L GFR >60 mL/min/1.73 sq meter GFR, >60 mL/min/1.73 sq meter ANION GAP 20 (H) 8 - 16 mmol/L LIPASE Result Value Ref Range LIPASE 62 (H) 13 - 60 U/L MANUAL DIFFERENTIAL Result Value Ref Range PLATELET EST. Consistent w Count RBC MORPHOLOGY Normal TRIGLYCERIDE Result Value Ref Range TRIGLYCERIDE 3,537 (H) <150 mg/dL TROPONIN BASELINE, 5TH GEN Result Value Ref Range TROPONIN T, BASELINE 5TH GEN <6 <=10 ng/L KETONES/BETA HYDROXYBUTYRATE Result Value Ref Range BETA HYDROXYBUTYRATE 1.6 (H) <0.4 mmol/L URINALYSIS WITH REFLEX MICROSCOPIC Result Value Ref Range COLOR UA Yellow Pale to Dark Yellow CLARITY UA Clear Clear SPECIFIC GRAVITY UA 1.025 1.003 - 1.035 PH UA 5.0 5.0 - 8.0 LEUKOCYTE ESTERASE UA Negative Negative NITRITE UA Negative Negative PROTEIN UA Negative Negative GLUCOSE UA 3+ (A) Negative KETONES UA 1+ (A) Negative UROBILINOGEN UA Normal <2.0 mg/dL BILIRUBIN UA Negative Negative BLOOD UA Negative Negative 2018 NOVEL CORONAVIRUS (COVID-19) PCR DETECTION Specimen: Nasopharynx; Upper Respiratory Result Value Ref Range COVID-19 PCR Not Detected Not Detected PERFORMING LAB [facility] POC GLUCOSE Result Value Ref Range POC GLUCOSE 102 (H) 74 - 99 mg/dL CREDIT ASSOCIATE NAME AMINA FLOOD POC GLUCOSE Result Value Ref Range POC GLUCOSE 86 74 - 99 mg/dL CREDIT ASSOCIATE NAME AMINA FLOOD CBC WITH DIFFERENTIAL Result Value Ref Range WBC 12.9 (H) 4.0 - 9.8 K/uL RBC 4.00 3.90 - 4.90 M/uL HEMOGLOBIN 12.4 11.8 - 14.8 g/dL HEMATOCRIT 35.0 (L) 35.5 - 44.0 % MCV 87.5 82.0 - 99.0 fL MCH 31.0 27.2 - 32.6 pg MCHC 35.4 31.5 - 35.5 g/dL RDW 15.1 (H) 11.5 - 14.5 % RDW-STDEV 48.3 37.1 - 48.7 fL PLATELETS 365 (H) 140 - 350 K/uL MPV 9.9 9.3 - 12.4 fL NEUTROPHILS 72 % LYMPHOCYTES 22 % MONOCYTES 4 % EOSINOPHILS 1 % BASOPHILS 0 % IMMATURE GRANULOCYTES 1 % NEUTROPHIL ABSOLUTE 9.30 (H) 1.90 - 7.00 K/uL LYMPHOCYTE ABSOLUTE 2.80 0.70 - 4.50 K/uL MONOCYTE ABSOLUTE 0.54 0.10 - 1.30 K/uL EOSINOPHIL ABSOLUTE 0.12 0.00 - 0.70 K/uL BASOPHILS ABSOLUTE 0.05 0.00 - 0.20 K/uL IMMATURE GRANULOCYTES ABSOLUTE 0.09 (H) 0.00 - 0.03 K/uL POC GLUCOSE Result Value Ref Range POC GLUCOSE 62 (L) 74 - 99 mg/dL COMMENT, GLU POC Notified RN/MD COMMENT 2, GLU POC Repeated Glucose CREDIT ASSOCIATE NAME KENIA QUIROZ POC GLUCOSE Result Value Ref Range POC GLUCOSE 122 (H) 74 - 99 mg/dL COMMENT, GLU POC Notified RN/MD COMMENT 2, GLU POC Repeated Glucose CREDIT ASSOCIATE NAME AMINA FLOOD LACTIC ACID Result Value Ref Range LACTIC ACID 0.7 <=2.0 mmol/L POC GLUCOSE Result Value Ref Range POC GLUCOSE 81 74 - 99 mg/dL CREDIT ASSOCIATE NAME AMINA FLOOD POC GLUCOSE Result Value Ref Range POC GLUCOSE 73 (L) 74 - 99 mg/dL CREDIT ASSOCIATE NAME KENIA QUIROZ POC GLUCOSE Result Value Ref Range POC GLUCOSE 91 74 - 99 mg/dL CREDIT ASSOCIATE NAME KENIA QUIROZ POC GLUCOSE Result Value Ref Range POC GLUCOSE 74 74 - 99 mg/dL COMMENT, GLU POC Notified RN/MD COMMENT 2, GLU POC Repeated Glucose CREDIT ASSOCIATE NAME AMINA FLOOD POC GLUCOSE Result Value Ref Range POC GLUCOSE 78 74 - 99 mg/dL CREDIT ASSOCIATE NAME JEFF BURROWS TROPONIN 6 HR, 5TH GEN Result Value Ref Range TROPONIN T, 6 HR 5TH GEN <6 <=10 ng/L BASIC METABOLIC PANEL Result Value Ref Range SODIUM 137 136 - 145 mmol/L POTASSIUM 3.4 (L) 3.5 - 5.0 mmol/L CHLORIDE 104 98 - 107 mmol/L CO2 24 22 - 29 mmol/L CALCIUM 7.6 (L) 8.6 - 10.2 mg/dL BUN 5 (L) 6 - 20 mg/dL CREATININE 0.42 (L) 0.51 - 0.95 mg/dL GLUCOSE 75 74 - 99 mg/dL GFR >60 mL/min/1.73 sq meter GFR, >60 mL/min/1.73 sq meter ANION GAP 9 8 - 16 mmol/L POC GLUCOSE Result Value Ref Range POC GLUCOSE 75 74 - 99 mg/dL CREDIT ASSOCIATE NAME KATIA DIAZ POC GLUCOSE Result Value Ref Range POC GLUCOSE 85 74 - 99 mg/dL CREDIT ASSOCIATE NAME JEFF BURROWS POC GLUCOSE Result Value Ref Range POC GLUCOSE 73 (L) 74 - 99 mg/dL CREDIT ASSOCIATE NAME KATIA DIAZ POC GLUCOSE Result Value Ref Range POC GLUCOSE 79 74 - 99 mg/dL CREDIT ASSOCIATE NAME KATIA DIAZ Assessment/Plan of Actively Managed Problems Acute on chronic pancreatitis-recurrent secondary to hypertriglyceridemia. Triglycerides 3537 on admission. Follows with endocrinology outpatient-Dr. Gates. Previously hospitalized for similar in June and July 2020. Currently on insulin drip with D5 NS. Endocrinology consulted, appreciate recommendations. Continue [employer] statin 80 mg, fenofibrate 160 mg. Continue as needed Dilaudid while NPO. Careful monitoring of vitals including HR, RR, BP and O2sat while on IV narcotics. Naloxone availableif needed. Familial hypertriglyceridemia-followed by endocrinology. Currently getting treatment with plasmapheresis twice a month-reports she is due for her next treatment on 12/28/2020. Fenofibrate 160 mg. 4 gr of vascepa per day with meals hen diet advanced. Repeat triglyceride level. Diabetes-uncontrolled. On [employer] Lantus 35 units twice daily, Metformin 500 mg twice daily, Jardiance.Anion gap initially 20, now down to 9. Serum ketones 1.6. Currently on insulin drip. Hypokalemia-replace 40 mEq Leukocytosis-noted. Neutrophil predominant. Continue to follow CBC. Depression with anxiety-continue [employer] Celexa, Wellbutrin, trazodone GERD (gastroesophageal reflux disease)-continue [employer] PPI Acquired hypothyroidism-continue [employer] Synthroid 200 mcg Tobacco use-encourage cessation. On Wellbutrin [employer]. Nicotine patch as needed. Quality/Safety/Core Measures/Disposition Planning: DVT Prophylaxis - Enoxaparin Pettit catheter:absent Current Code Status -Full Code Plan discussed with patient, questions answered. Current Planned Disposition - Dispo: home Manisha Cleveland MD [facility] Epic Secure Chat 7am-7pm After hours please call ospitalist This note was transcribed using [employer] naturally speaking computerized voice recognition without a human blue split trimmer. This report may or may not have been adjusted for typographical, grammaticaland syntax errors. * Amina Flood RN - 12/27/2020 7:33 AM CDT ?UNDRESS AND ASSESS FOR ALL ADMISSIONS AND TRANSFERS: Remove all existing dressings and assess all wounds upon admission (unless instructed by physician). Undress and Assess performed by: bedside coworker Manan and bedside coworker Leonel on admission to TCU Chin Score: Chin Score: 20 (12/27/20 0100) 1. Patient does not have skin breakdown. ??? If yes o Description of wound location and appearance: o LDA added for any open areas and for non-blanching pink/red or purple areas? No (please note, heels, ankles, knees, hips, sacrum, coccyx, ischium, gluteal, occiput, spine and all skin folds are high risk for skin breakdown) and consult wound care services 2. Was wound photographed: N/A 3. Is a specialty support surface utilized? N/A If yes, which one?: NA i.e. impaired mobility, bariatric, malnourished, existing pressure injury. 4. Is the patient a paraplegic/quadriplegic? No If so, if stable spine immediately place on specialty surface. If unstable spine or new spinal injury, consult physician (per facility process) and consult wound care services. 5. Is a medical assistant supervisor in place?no If yes, remove device/brace/splint to check skin underneath, obtain provider order if necessary. 6. Does the patient have a wound VAC (negative pressure wound therapy)? No If yes, please consult wound care services and follow facility process. 7. Does the patient have an ostomy? No If yes, please consult wound care services. 8. Was the Skin Care Prevention: Pressure Injury Pathway initiated and appropriate interventions selected? (i.e. protective foams, turn patient q 2 h, elevate heels etc.) No 9. Was the Skin Care Treatment: Pressure Injury/Lower Extremity Ulcer Pathway initiated, and appropriate interventions selected? No(i.e. cleanse and apply silicone border dressing to skin tears, cleanse and apply antifungal to affected skin folds and apply soft linen or Interdry between folds etc.). Wound care consult was not initiated. [facility] Skin Care Injury Prevention and Treatment Protocol [facility] Approved by: [facility] - Medical Executive Committee Approval Date: 05/14/2019 ORDERS ARE ENTERED ???PER PROTOCOL?? Nursing Orders: o When a patient age 18 years or older has: ; a documented Chin score of 18 or less or a Chin sub score of 2 or 1, ; or a documented condition on the problem [...] found in the Wound Care Algorithm. * Amina Flood RN - 12/27/2020 3:42 AM CDT Pt repeat FSBG 62. PT NPO 12.5g of D50 administered per protocol. * Amina Flood RN - 12/26/2020 11:48 PM CDT Report received. documented in this encounter H&P Notes * Araceli Santo MD - 12/26/2020 11:23 PM CDT [facility] Admission H&P Date of Admission: 12/26/2020 Date of Service: 12/26/2020 Patient Name: Casandra Doss Courtesy Copy PCP: Guerrero Middleton PA-C Chief Complaint: abdominal pain HPI: Patient is a 45 y.o. female with a past medical history of recurrent pancreatitis 2/2 hypertriglyceridemia who presents with acute onset abd pain. Pt developed pain 2 days [employer] associated with nausea/vomiting. Pt attempted to treat at home with bowel rest but sx did not improve. Pt underwent plasmapheresis on 12/07/20, scheduled for additional treatment on 12/28/20. Pt denies medication changes,no abd trauma. In the ED, T 99.4, Hr 110s, RR 24, BP ok, O2 sat ok. WBC 17.9, Hg 15, Plt 412, AG 20, CO2 18, lipase 62, triglyceride 3,537. UA shows glc and ketones. CT c/a/p showed mild edema adjacent to pancreatic tail. Pt was started on zosyn in the ED. Past Medical History: Past Medical History: Diagnosis [...] of left power flow port 05/11/2019 ??? [place] ESOPHAGOGASTRODUODENOSCOPY TRANSORAL DIAGNOSTIC N/A 03/08/2018 ESOPHAGOGASTRODUODENOSCOPY performed by Ceasar Vega MD at [facility] Family History: Family History Problem Relation Name Age of Onset ??? Diabetes Father ??? High Cholesterol Father ??? Hypertension Father ??? Stroke Mother ??? Heart Disease Mother ??? Thyroid Disease Mother ??? High Cholesterol Mother ??? Heart Disease Maternal Grandmother ??? Diabetes Maternal Grandmother ??? Diabetes Paternal Grandmother ??? Diabetes Mother Social History: Social History Tobacco Use ??? Smoking status: Current Every Day Smoker Packs/day: 1.00 Years: 18.00 Pack years: 18.00 Types: Cigarettes ??? Smokeless tobacco: Never Used ??? Tobacco comment: nicotine patch requested Vaping Use ??? Vaping Use: Never used Substance Use Topics ??? Alcohol use: No ??? Drug use: No Outpatient Medications: I have personally reconciled the outpatient medications. Prior to Admission Medications Prescriptions Last Dose Informant Patient Reported? Taking? Dexcom G6 Sensor Device No No Sig: Change sensor every 10 days. (9 sensors = 90 days) Dexcom G6 Transmitter Device No No Sig: Change transmitter every 90 days Fish Oil-[place]-3 Fatty Acids 360-1,200 mg Capsule Yes No Sig: Take 2 Capsules by mouth 2 times daily with meals. LORazepam (ATIVAN) 1 mg tablet No No Sig: Take 1 Tablet (1 mg) by mouth 2 times daily as needed for Anxiety. Vascepa 1 gram Capsule No No Sig: TAKE 2 CAPSULES (2 GRAMS) BY MOUTH 2 TIMES DAILY WITH MEALS. buPROPion HCL (WELLBUTRIN SR) 150 mg Sustained Release 12 hour tablet No No Sig: Take 1 Tablet (150 mg) by mouth 2 times daily. citalopram (CeleXA) 40 mg tablet No No Sig: TAKE 1 TABLET BY MOUTH EVERY DAY diphenhydrAMINE (BENADRYL) 25 mg tablet No No Sig: Take 1 Tablet (25 mg) by mouth every 8 hours as needed for Itching. empagliflozin (Jardiance) 25 mg tablet No No Sig: TAKE 1 TABLET BY MOUTH EVERY [employer] fenofibrate (LOFIBRA) 160 mg Tablet No No Sig: TAKE 1 TABLET BY MOUTH EVERY DAY Patient taking differently: Take 160 mg by mouth daily. insulin aspart U-100 (NovoLOG Flexpen U-100 Insulin) 100 unit/mL pen syringe No No Sig: INJECT APPROXIMATELY 50 UNITS A DAY PER CORRECTION DOSE WITH MEALS insulin glargine (Basaglar KwikPen U-100 Insulin) 100 unit/mL pen syringe No No Si units bid levothyroxine 200 mcg tablet No No Sig: Take 1 Tablet (200 mcg) by mouth daily. Once daily on an empty stomach metFORMIN (GLUCOPHAGE) 1,000 mg tablet No No Sig: Take 1 Tablet (1,000 mg) by mouth 2 times daily with meals. ondansetron (ZOFRAN ODT) 4 mg Tablet, Rapid Dissolve No No Sig: Dissolve 1 tablet on top of tongue, then swallow with saliva every 6 hours as needed for nausea/vomiting. pantoprazole (PROTONIX) 40 mg Tablet, Delayed Release (E.C.) Yes No Sig: Take 40 mg by mouth 2 times daily . rosuvastatin (CRESTOR) 20 mg tablet Yes No Sig: Take 20 mg by mouth daily at bedtime. traZODone (DESYREL) 100 mg tablet Yes No Sig: Take 100 mg by mouth daily at bedtime . varenicline (Chantix) 0.5 mg Tablet No No Sig: Take 1 Tablet (0.5 mg) by mouth 2 times daily. Facility-Administered Medications: None Allergies: Allergies Allergen Reactions ??? Adhesive Tape-Silicones Hives ??? Green Pepper Hives ??? Adhesive Unknown ??? Aspartame Headache Review of Systems: Constitutional: No fever or chills Eyes: No visual changes Ears, nose, mouth, throat: No change in hearing, no sore throat, no rhinitis Cardiovascular: No chest pain or orthopnea Respiratory: No cough or SOB Gastrointestinal: abd pain, nausea/vomiting Genitourinary: No hematuria, urgency or frequency Musculoskeletal: No pain or weakness Integumentary: No rashes or eruptions Neurological: No numbness or tingling Psychiatric: No anxiety or depression Endocrine: No heat or cold intolerance Hematologic/Lymphatic: No easy bruising or bleeding Allergic/Immunologic: Not experiencing frequent infections All other ROS reviewed and are negative Physical Exam: Patient Vitals for the past 8 hrs: BP Temp Temp src Pulse Resp SpO2 Height Weight 12/27/20 0002 111/75 98.6 ??F (37 ??C) Oral 99 15 95 % 5' 5 (1.651 m) 83.9 kg (184 lb 14.4 oz) 12/26/20 2327 124/72 98.5 ??F (36.9 ??C) Oral 96 20 94 % -- -- 12/26/20 1832 (!) 147/94 -- -- -- -- -- -- -- 12/26/201830 -- 99.4 ??F (37.4 ??C) Oral -- 24 95 % 5' 5 (1.651 m) 83.9 kg (185 lb) Constitutional: Alert, cooperative, well-developed, no apparent distress. Eyes: Sclerae anicteric. PERRL. EOMs intact. Head, Ears, Nose, Throat: NC/AT. Oropharynx clear. Oral mucosa moist with no lesions. Neck: No JVD, thyroid normal. Respiratory: Normal respiratory effort. Clear to auscultation bilaterally. Cardiovascular: Regular rate and rhythm, S1, S2 normal, no murmurs. Pedal pulses are 2+ and symmetric. There is no peripheral edema, clubbing, or cyanosis. Chest: Chest wall is normal. Gastrointestinal: Abdomen is soft, diffusely tender without rebound or guarding Lymphatics: There is no palpable cervical, axillary, or inguinal lymphadenopathy. Musculoskeletal: Normal musculature, no wasting. Skin: Inspection of skin reveals no lesions or rashes. Neurologic: CNII-XII intact without deficits. Strength is normal throughout. Sensation is normal throughout. Nonfocal neurological exam. Psychiatric: Normal judgement and insight. Oriented to time, place, person, and situation. Recent and remote memory is intact. Mood and affect are appropriate. Data Base: I have reviewed available data from visits prior to today. Results for orders placed or performed during the hospital encounter of 12/26/20 (from the past 24 hour(s)) CBC WITH DIFFERENTIAL Result Value Ref Range WBC 17.9 (H) 4.0 - 9.8 K/uL RBC 5.01 (H) 3.90 - 4.90 M/uL HEMOGLOBIN 15.0 (H) 11.8 - 14.8 g/dL HEMATOCRIT 44.0 35.5 - 44.0 % MCV 87.8 82.0 - 99.0 fL MCH 29.9 27.2 - 32.6 pg MCHC 34.1 31.5 - 35.5 g/dL RDW 14.3 11.5 - 14.5 % RDW-STDEV 45.6 37.1 - 48.7 fL PLATELETS 412 (H) 140 - 350 K/uL MPV 8.9 (L) 9.3 - 12.4 fL NEUTROPHILS 79 % LYMPHOCYTES 15 % MONOCYTES 4 % EOSINOPHILS 1 % BASOPHILS 0 % IMMATURE GRANULOCYTES 1 % NEUTROPHIL ABSOLUTE 14.17 (H) 1.90 - 7.00 K/uL LYMPHOCYTE ABSOLUTE 2.67 0.70 - 4.50 K/uL MONOCYTE ABSOLUTE 0.76 0.10 - 1.30 K/uL EOSINOPHIL ABSOLUTE 0.14 0.00 - 0.70 K/uL BASOPHILS ABSOLUTE 0.08 0.00 - 0.20 K/uL IMMATURE GRANULOCYTES ABSOLUTE 0.11 (H) 0.00 - 0.03 K/uL COMPREHENSIVE METABOLIC PANEL Result Value Ref Range SODIUM 136 136 - 145 mmol/L POTASSIUM 4.1 3.5 - 5.0 mmol/L CHLORIDE 98 98 - 107 mmol/L CO2 18 (L) 22 - 29 mmol/L CALCIUM 9.7 8.6 - 10.2 mg/dL BUN 7 6 - 20 mg/dL CREATININE 0.41 (L) 0.51 - 0.95 mg/dL GLUCOSE 98 74 - 99 mg/dL TOTAL PROTEIN 7.5 6.7 - 8.6 g/dL ALBUMIN 4.4 3.5 - 5.2 g/dL BILIRUBIN TOTAL 0.4 0.3 - 1.2 mg/dL ALKALINE PHOSPHATASE 91 35 - 104 U/L AST 17 <33 U/L ALT 13 <34 U/L GFR >60 mL/min/1.73 sq meter GFR, >60 mL/min/1.73 sq meter ANION GAP 20 (H) 8 - 16 mmol/L LIPASE Result Value Ref Range LIPASE 62 (H) 13 - 60 U/L MANUAL DIFFERENTIAL Result Value Ref Range PLATELET EST. Consistent w Count RBC MORPHOLOGY Normal TRIGLYCERIDE Result Value Ref Range TRIGLYCERIDE 3,537 (H) <150 mg/dL TROPONIN BASELINE, 5TH GEN Result Value Ref Range TROPONIN T, BASELINE 5TH GEN <6 <=10 ng/L KETONES/BETA HYDROXYBUTYRATE Result Value Ref Range BETA HYDROXYBUTYRATE 1.6 (H) <0.4 mmol/L URINALYSIS WITH REFLEX MICROSCOPIC Result Value Ref Range COLOR UA Yellow Pale to Dark Yellow CLARITY UA Clear Clear SPECIFIC GRAVITY UA 1.025 1.003 - 1.035 PH UA 5.0 5.0 - 8.0 LEUKOCYTE ESTERASE UA Negative Negative NITRITE UA Negative Negative PROTEIN UA Negative Negative GLUCOSE UA 3+ (A) Negative KETONES UA 1+ (A) Negative UROBILINOGEN UA Normal <2.0 mg/dL BILIRUBIN UA Negative Negative BLOOD UA Negative Negative 2019 NOVEL CORONAVIRUS (COVID-19) PCR DETECTION Specimen: Nasopharynx; Upper Respiratory Result Value Ref Range COVID-19 PCR Not Detected Not Detected PERFORMING LAB [facility] ECG: personally reviewed, sinus tach, no acute ST/T wave abnormalities CT c/a/p: 1. Mild edema adjacent to the pancreatic tail, compatible with given history of acute pancreatitis. 2. Punctate nonobstructing right renal stone. 3. Clear lungs. Problem List: Principal Problem: Acute on chronic pancreatitis Active Problems: Depression with anxiety GERD (gastroesophageal reflux disease) Acquired hypothyroidism Assessment and Plan: 1. Acute on chronic pancreatitis - recurrent 2/2 hypertriglyceridemia, pt on insulin gtt overnight,cont IVF, PRN pain medication. NPO. Endocrine consulted, appreciate input. 2. DM2 - pt uses lantus and oral agents [employer] SPECIAL[employer], here, pt does have increased AGMA with urine ketones (serum ketones pending), however glc 98 on chemistry, suspect starvation ketosis, pt on insulin gtt for TG management. Cont to monitor POC gluc, resume lantus and SSI when insulin gtt is stopped. 3. HLD - cont lipitor 4. Depression - cont celexa, wellbutrin, trazodone 5. Hypothyroid - cont synthroid 6. GERD - cont PPI 7. Debility: none 8. DVT Prophylaxis: Enoxaparin Diet: DIET NPO Sips w/Meds, Code Status: Full Code Disposition: Ms. Doss normally lives at home. I anticipate discharge to home in approximately 2-3days. Plan discussed with patient, questions answered; patient agrees with current plan. I have personally reviewed the ER documentation, admission labs, and admission imaging studies today. Additionally, I have personally reviewed previous hospital documentation, office notes, laboratory data, and imaging studies relevant to this encounter. This H&P has been forwarded to this patient's Primary Care Physician if a PCP has been identified. Please call any time with questions. Araceli Santo MD Adult Hospitalist Physician 12/27/2020, 1:01 AM documented in this encounter Consult Notes * Sergio Souza RN - 01/01/2021 7:18 PM CDTAssociated Order(s): IP CONSULT TO IV TEAM IV CONSULT: Request for IV consult. Reviewed electronic record and completed a vascular assessment. X2 PIV started by Rich OLGUIN and documented in EPIC. Bed in low position,HOB up 35 degrees,?? side rails up X3. Safety check completed. RN notified. ?? * Sergio Souza RN - 12/29/2020 2:45 PM CDTAssociated Order(s): IP CONSULT TO IV TEAM IV CONSULT: Request for IV consult. Arrived to floor per primary RN Jazmine patient has x2 PIV's established by another clinician. Please reconsult if needed. documented in this encounter ED Notes * Trey Mobley RN - 12/26/2020 10:52 PM CDT Fentanyl given per MAR. Patient/family has been informed about benefits and any potential clinically significant side effects or other concerns regarding the administration of the drug they have justbeen given. * Trey Mobley RN - 12/26/2020 9:52 PM CDT Pt to CT. * Trey Mobley RN - 12/26/2020 9:22 PM CDT 45 y.o F to the ED with chronic pancreatitis and abdominal pain that began yesterday. +nausea/vomiting with unknown amount of times. Respirations even and unlabored. A/0 X4. Skin WNL. Patient restingquietly on stretcher. Call light within reach. All questions answered to the best of RN ability. Patient placed on continuous cardiac monitoring, pulse oximetry and intermittent blood pressure. * Last Olsen DO - 12/26/2020 5:53 PM CDT HISTORY OF PRESENT ILLNESS Casandra Doss, a 45 y.o. female presents to the ED with a Chief Complaint of Abdominal Pain Subjective Documented Triage Chief Complaint: Abdominal pain 9:05 PM: Casandra Doss is a 45 y.o. female with a history of chronic pancreatitis due to high triglycerides, DM, and HLD who presents to the Emergency Department with complaints of epigastric abdominal pain. She describes her pain as tight and radiating to her chest and back. Patient reports that this is consistent with her chronic pancreatitis. She is positive for n/v/d. Denies any heart issues,heart stents, blood clots, or pancreas stents. She has her full Covid-19 vaccination. Physician(s): Guerrero Middleton PA-C History provided by: The patient and medical records Arrived by: Private vehicle Abdominal Pain Pain location: Epigastric Pain radiates to: Back and chest Onset quality: Gradual Progression: Worsening Chronicity: Chronic Relieved by: Nothing Worsened by: Nothing tried Ineffective treatments: None tried Associated symptoms: chest pain (radiating from abdomen), diarrhea, nausea and vomiting Associated symptoms: no chills, no constipation, no cough, no fatigue, no fever and no shortness ofbreath REVIEW OF SYSTEMS Review of Systems Constitutional: Negative for activity change, chills, fatigue and fever. HENT: Negative for congestion, ear pain, rhinorrhea, tinnitus, trouble swallowing and voice change. Eyes: Negative for discharge and redness. Respiratory: Negative for cough, chest tightness, shortness of breath and wheezing. Cardiovascular: Positive for chest pain (radiating from abdomen). Negative for palpitations and legswelling. Gastrointestinal: Positive for abdominal pain, diarrhea, nausea and vomiting. Negative for abdominal distention, blood in stool and constipation. Endocrine: Negative for cold intolerance and heat intolerance. Genitourinary: Negative for flank pain and frequency. Musculoskeletal: Positive for back pain (radiating from abdomen). Negative for neck pain and neck stiffness. Skin: Negative for color change, pallor, rash and wound. Allergic/Immunologic: Negative for environmental allergies, food allergies and immunocompromised state. Neurological: Negative for dizziness, tremors, seizures, syncope, weakness and light-headedness. Psychiatric/Behavioral: Negative for behavioral problems and confusion. PAST MEDICAL HISTORY REVIEWED MEDICAL: Patient has [...] PCOS (polycystic ovarian syndrome) (05/15/2011), andSmoker. She also has no past medical history of CRI [...] Green pepper, Adhesive, and Aspartame HOME MEDICATIONS Patient's Home Medications Current Home Medications BUPROPION [...] this Encounter Medications Discontinued during this Encounter Objective PHYSICAL EXAM INITIAL VS BP: (!) 147/94 (12/26/201831), Heart Rate: (!) 118 bpm (12/26/201830), Resp: 24 (12/26/201830), Pulse: (not recorded), Temp: 99.4 ??F (37.4 ??C) (12/26/201830), Temp src: Oral (12/26/201830), SpO2: 95 % (12/26/201830), Height: 5' 5 (165.1 cm) (12/26/201830), Weight: 83.9 kg (185 lb) (12/26/201830), BMI (Calculated): 30.79 (12/26/201830) No LMP recorded. Patient has had a hysterectomy. Physical Exam Vitals reviewed. Constitutional: Appearance: She is obese. Comments: White female HENT: Head: Normocephalic and atraumatic. Right Ear: External ear normal. Left Ear: External ear normal. Nose: Nose normal. Eyes: Conjunctiva/sclera: Conjunctivae normal. Pupils: Pupils are equal, round, and reactive to light. Neck: Thyroid: No thyromegaly. Vascular: No JVD. Trachea: No tracheal deviation. Cardiovascular: Rate and Rhythm: Normal rate and regular rhythm. Pulmonary: Effort: Pulmonary effort is normal. Breath sounds: Normal breath sounds. No stridor. Abdominal: General: Bowel sounds are normal. There is no distension. Palpations: Abdomen is soft. There is no mass. Tenderness: There is abdominal tenderness (mild) in the epigastric area. There is no guarding or rebound. Hernia: No hernia is present. Comments: No pulsatile mass Musculoskeletal: Cervical back: Normal range of motion and neck supple. Lymphadenopathy: Cervical: No cervical adenopathy. Skin: General: Skin is warm and dry. Neurological: Mental Status: She is alert and oriented to person, place, and time. Cranial Nerves: No cranial nerve deficit. Sensory: No sensory deficit. Motor: No abnormal muscle tone. Coordination: Coordination normal. Deep Tendon Reflexes: Reflexes normal. Psychiatric: Behavior: Behavior normal. DIAGNOSTICS LAB: CBC WITH DIFFERENTIAL - Abnormal Result Value WBC 17.9 (*) RBC 5.01 (*) HEMOGLOBIN 15.0 (*) HEMATOCRIT 44.0 MCV 87.8 MCH 29.9 MCHC 34.1 RDW 14.3 RDW-STDEV 45.6 PLATELETS 412 (*) MPV 8.9 (*) NEUTROPHILS 79 LYMPHOCYTES 15 MONOCYTES 4 EOSINOPHILS 1 BASOPHILS 0 IMMATURE GRANULOCYTES 1 NEUTROPHIL ABSOLUTE 14.17 (*) LYMPHOCYTE ABSOLUTE 2.67 MONOCYTE ABSOLUTE 0.76 EOSINOPHIL ABSOLUTE 0.14 BASOPHILS ABSOLUTE 0.08 IMMATURE GRANULOCYTES ABSOLUTE 0.11 (*) COMPREHENSIVE METABOLIC PANEL - Abnormal SODIUM 136 POTASSIUM 4.1 CHLORIDE 98 CO2 18 (*) CALCIUM 9.7 BUN 7 CREATININE 0.41 (*) GLUCOSE 98 TOTAL PROTEIN 7.5 ALBUMIN 4.4 BILIRUBIN TOTAL 0.4 ALKALINE PHOSPHATASE 91 AST 17 ALT 13 GFR >60 GFR, >60 ANION GAP 20 (*) URINALYSIS WITH REFLEX MICROSCOPIC - Abnormal COLOR UA Yellow CLARITY UA Clear SPECIFIC GRAVITY UA 1.025 PH UA 5.0 LEUKOCYTE ESTERASE UA Negative NITRITE UA Negative PROTEIN UA Negative GLUCOSE UA 3+ (*) KETONES UA 1+ (*) UROBILINOGEN UA Normal BILIRUBIN UA Negative BLOOD UA Negative LIPASE - Abnormal LIPASE 62 (*) TRIGLYCERIDE - Abnormal TRIGLYCERIDE 3,537 (*) TROPONIN BASELINE, 5TH GEN - Normal TROPONIN T, BASELINE 5TH GEN <6 MANUAL DIFFERENTIAL PLATELET EST. Consistent w Count RBC MORPHOLOGY Normal TROPONIN 2 HR, 5TH GEN 2019 NOVEL CORONAVIRUS (COVID-19) PCR DETECTION RADIOLOGY: CT CHEST ABDOMEN PELVIS W CONT Radiologist Impression IMPRESSION: 1. Mild edema adjacent to the pancreatic tail, compatible with given history of acute pancreatitis. 2. Punctate nonobstructing right renal stone. 3. Clear lungs. DICTATION LOCATION: Location 1 - [facility] EKG: Time 2142, sinus tach 107, left atrial l enlargement, no acute ST elevation/no STEMI. TX interval 0.15, QRS 0.08, QT 0.33 PROCEDURES Procedures MEDICAL DECISION MAKING AND PLAN OF CARE Upon initial evaluation, plan for labs and imaging was discussed with the patient. Patients questions and concerns were addressed. Patient agrees with this initial plan of care. 9:39 PM: Rechecked the patient. She states that she normally gets Dilaudid for this pain. Physician informed her of [facility]'s policy on this medication. 11:00 PM: After a long discussion with the patient and her , they agreed to admission. Updated patient on results. The opportunity for questions was given and questions were answered to the patient's satisfaction. All questions and concerns have been addressed. 11:05 PM: D/w ANNA Signh for [facility] Hospitalist who agrees to admission to step- down floor, under Dr. Peacock. ED provider and ED nurse verbally discussed patient plan of care at this time. MDM Summary Statement: Very pleasant 45-year-old presents with recurrent pancreatitis/hyperlipidemia/hypertriglyceridemia--patient states increasing pain to the abdominal region. CT illustrates mild pancreatitis. Patient given morphine/fentanyl here with some improvement. Patient does have a leukocytosis will cover some antibiotics. Patient will be admitted to stepdown. Patient has had insulin drips etc. for her elevated triglycerides in the past. I spoke with the hospitalist team. Patient is hemodynamically stable. I have reviewed previous: notes and labs I have reviewed current: labs, imaging and ECG I have reviewed nursing notes related to past medical history, social history, and review of systems and agree, unless otherwise noted. Consults: hospitalist Medications Administered During the ED Stay from 12/26/2020 1753 to 12/26/2020 2326 Date/Time Order Dose Route Action 12/26/20202018 ondansetron (ZOFRAN) 4 mg/2 mL injection 4 mg 4 mg IV Given 12/26/2020 231 morphine 4 mg/mL injection 4 mg 4 mg IV Given 12/26/20202123 morphine 4 mg/mL injection 4 mg 4 mg IV Given 12/26/20202123 ondansetron (ZOFRAN) 4 mg/2 mL injection 4 mg 4 mg IV Given 12/26/2020 220 acetaminophen (TYLENOL) tablet 1,000 mg 1,000 mg Oral Given 12/26/2020 2100 sodium chloride flush injection 10 mL 10 mL IV Given 12/26/2020 215 iopamidoL (ISOVUE-300) 61 % injection (drawn from multi-use bulk pack) 120 mL 120 mL IV Contrast Given 12/26/2020 225 fentaNYL PF (SUBLIMAZE) 50 mcg/mL injection 100 mcg 100 mcg IV Given 12/26/2020 231 piperacillin-tazobactam (ZOSYN) 4.5 gram in dextrose (iso- osmotic) 100 mL IVPB 4.5 Gram IV New Bag . New Prescriptions for this Encounter LAST VS BP: (!) 147/94 (12/26/201831), Heart Rate: (!) 118 bpm (12/26/201830), Resp: 24 (12/26/201830), Pulse: (not recorded), Temp: 99.4 ??F (37.4 ??C) (12/26/201830), Temp src: Oral (12/26/201830), SpO2: 95 % (12/26/201830) CLINICAL IMPRESSION Final diagnoses: [R10.13] Epigastric abdominal pain (Primary) [K86.1] Chronic pancreatitis, unspecified pancreatitis type [E78.1] Hypertriglyceridemia DISPOSITION, EDUCATION AND MEDICATION RECONCILIATION Medications reconciled. See after visit summary for patient education on discharged patients. ED Disposition ED Disposition Condition User Date/Time Comment Admit Stable Last Olsen DO SatDec 26, 2020 11:03 PM ATTESTATION STATEMENTS This note has been prepared by Rae Alfred acting as a scribe for Dr. Olsen on 12/26/2020 at 11:21 PM. The scribe's documentation has been prepared under my direction and personally reviewed by me,, in its entirety on 12/26/20 at 11:26 PM. I confirm that the note above accurately reflects all work, treatment, procedures, and medical decision making performed by me. documented in this encounter Miscellaneous Notes * Care Plan - Allie Madrigal GN - 01/01/2021 4:55 PM CDT Shift Note: Patient rested quietly throughout shift. Complained of frequent pain, PRN Prue given and dilaudid give x2 for breakthrough pain. 2 BM this shift, patient did complain of diarrhea. BG remained within limits, insulin gtt titrated accordingly. Repeat triglycerides showed 515. Neuro: X4, frequent pain, PRN meds given CV: HR 60-80, BP 100-130s, afebrile, 2/2 pulses, Lovenox Resp: RA, clear GI: Pt complained of abdominal pain throughout shift, PRN meds given, pt had diarrhea this morning x2, clear liquid diet continued, patient eating adequately. : Adequate output using bedside commode Pain/Delirium/Sleep: PRN meds given for pain, resting between care Activity: Ambulated to outside hallway with RN to use restroom. Tolerated well. Shift Undress and Assess performed by two coworkers: 1. CLAU Kelley. 2. PHOEBE Shrestha The patient does not have existing skin breakdown, if yes, describe: The patient does not have new purple/sissy/dark red over ANY bony prominences (ears, elbows, knees, heels, coccyx, hips, occiput), if yes, describe: ~If ANY answer 'yes'- please re-consult and call wound care~ Wound care consult was not in place. Wound care consult was not initiated. Are there currently any skin protectant dressings in place, if yes, where? n/a If yes, please describe condition of skin under dressing: If no, were any applied and where: mepilex on coccyx Are there any currently any medical devices in place (leg immobilizers, FMS, c- collars, splints, etc.)? If yes, describe skin under device: Education: Medication admin, insulin gtt Family communication: Family at bedside throughout afternoon. Problem: Pain, Potential/Actual Goal: Verbalizes/displays acceptable comfort level or baseline comfort level Description: Outcome: Variance Problem: Nutrition/Endocrine Goal: Achieve optimal nutrition and fluid status to meet metabolic needs throughout hospitalization Outcome: Variance Problem: Gastrointestinal Goal: Achieve optimal gastrointestinal function by discharge or maintain baseline function Outcome: Variance * Care Plan - Puja Courtney RN - 12/31/2020 7:09 PM CDT Pt A&Ox4. dilautid and norco given for pain. Ra, clear lung sounds. 2/2 pulses. VSS. R arm PIV WDL. L arm PIV WDL. * Care Plan - Anahi Sweet RN - 12/28/2020 8:44 AM CDT Clinical documentation reviewed. Comprehensive Discharge Planning Risk Assessment was completed. Readmission Risk (patient becomes high risk with a score of 8 or greater) 5 Total Score 5 Prior Hospitalizations Total Score of 9 or below does not identify immediate needs for discharge. Age Score: 4 Disability Score: 0 Prior Living Status Score: {0 Mobility Limitation Score: 0 TOTAL SCORE: [address] consult if needs for discharge are identified. Care Management will continue to follow for discharge planning. Anahi Sweet R.N. / [facility] [phone] Problem: Discharge Planning Goal: Identify discharge needs upon admission and through discharge Description: Outcome: Progressing * Treatment Plan - Elisha Powell RT - 12/26/2020 10:00 PM CDT Images from the original note were not included. ? STL IMS CT MRI Medication and Flush Protocol [facility] Approved by: [facility] - Medical Executive Committee Approval Date: 06/16/2020 ORDERS ARE ENTERED ???PER PROTOCOL?? Enter the protocol in the patient's electronic health record using smartphrase: .imagingctmriprotocol Communication Orders: o For ordered imaging procedures requiring intravenous access: ??? Initiate a peripheral IV, if not already in place, and discontinue IV prior to discharge (if outpatient). ??? Enter order if needed: Insert Peripheral IV o Bariatric Oral Contrast: Post-surgical bariatric patients will have markedly reduced ability to drink normal quantities of liquid. ??? Four ounces will be the maximum amount or less if the patient cannot comfortably tolerate. ??? Cancel oral contrast if patient is nauseated or vomiting. ??? Water based contrast only Medication Orders: o Local Anesthetic for use [...] and documented in the EHR Progress Notes. Cystogram (CT Pelvis): Iopamidol (Isovue 300) 61%, 50mL, diluted with 250mL of sterile NS. Inject Isovue into 250mL bag ofNS. Clamp pettit catheter prior to instilling solution via catheter. o Instill up to 300mL of Isovue and NS solution into bladder via catheter, one time. CT ORAL CONTRAST PROTOCOLS FOR ADULTS ??? Use Iohexol (Omnipaque) 240 mg/mL for CT scan unless patient has a documented allergy to contrast dye. ??? If allergy present, use Barium Sulfate (EZ Paque) for procedure. o Iohexol (Omnipaque) 240 mg/mL: 50ml added [...] oral. May use nasoenteric tube if needed. to 3 months Administer up to 90mL [...] of Barium sulfate, Orally, One Time Only Iohexol (Omnipaque) 240 mg/mL oral solution ; Dilute 25mL of Iohexol with 480mL of clear liquid of patient's choice. Administer the diluted solution per age as follows: Preferred route is orally. May use nasoenteric tube if needed. ; Send any remaining diluted Iohexol solution with the patient's nurse to CT ; ; ; Administer 45mL of diluted Iohexol oral solution, orally every 30 minutes x 2 doses. ; 1 month to 1 year old ; Administer 120mL of diluted Iohexol oral solution, orally every 30 min x 2 doses. ; 1 year old to 5 years old ; Administer 180mL of Iohexol orally every 30 min x 2 doses. ; 5 years old to 10 years old ; Administer 240mL of Iohexol orally every 30 min x 2 doses. ; Over 10 years old ; Administer 300mL of Iohexol orally every 30 min x 2 doses. ; ; CT RECTAL CONTRAST PROTOCOLS ADULTS: o Iohexol (Omnipaque) 240 mg/mL: Dilute 50mL of Omnipaque with 900mL of warm water in an enema bag.Administer the diluted solution rectally via gravity per patient's tolerance, up to 950mLs, one time only. ; CT IV CONTRAST PROTOCOLS for ADULT ; ADULTS: (If patient is less than 55kg [...] than 55kg and confirm dose with radiologist. to 15 years old Administer 2.2mL/kg (to [...] of NSF cases: o Gadodiamide (Omniscan?? - [employer] [place]) o Gadopentetate dimeglumine (Magnevist?? - [employer]) o Gadoversetamide (OptiMARK?? - [employer]) Group II: Agents associated with few, if any, unconfounded cases of NSF: o Gadobenate dimeglumine (MultiHance?? - [employer]) o Gadobutrol (Gadavist?? - [employer]; Gadovist in many countries) o Gadoteric acid (Dotarem?? - [employer], Clariscan - [employer] [place]) Gadoteridol (ProHance?? - [employer]) Group III: Agents for which data remains limited regarding NSF risk, but for which few, if any unconfounded cases of NSF have been reported: Gadoxetate disodium (Eovist - [employer]; Primovist in many countries) documented in this encounter Plan of Treatment Upcoming Encounters Date Type Department Care Team (Late st Contact Info) Description 09/14/2024 3:00 PM CDT Office Visit [facility] [phone] [place] [address] Marlys Mayer MD [address] [place] [address] documented as of this encounter Procedures Procedure Name Priority Date/Time Associated Diagnosis Comments POC GLUCOSE Routine 01/02/2021 11:45 AM CDT POC GLUCOSE Routine 01/02/2021 9:38 AM CDT POC GLUCOSE Routine 01/02/2021 8:43 AM CDT TRIGLYCERIDE Routine 01/02/2021 7:52 AM CDT POC GLUCOSE Routine 01/02/2021 7:29 AM CDT POC GLUCOSE Routine 01/02/2021 6:30 AM CDT POC GLUCOSE Routine 01/02/2021 5:39 AM CDT POC GLUCOSE Routine 01/02/2021 4:41 AM CDT CBC WITH DIFFERENTIAL Routine 01/02/2021 3:35 AM CDT POC GLUCOSE Routine 01/02/2021 3:31 AM CDT POC GLUCOSE Routine 01/02/2021 2:37 AM CDT POC GLUCOSE Routine 01/02/2021 2:03 AM CDT POC GLUCOSE Routine 01/02/2021 1:28 AM CDT POC GLUCOSE Routine 01/02/2021 12:31 AM CDT POC GLUCOSE Routine 01/01/2021 11:18 PM CDT POC GLUCOSE Routine 01/01/2021 10:05 PM CDT POC GLUCOSE Routine 01/01/2021 8:30 PM CDT POC GLUCOSE Routine 01/01/2021 7:29 PM CDT POC GLUCOSE Routine 01/01/2021 6:33 PM CDT POC GLUCOSE Routine 01/01/2021 6:02 PM CDT POC GLUCOSE Routine 01/01/2021 5:31 PM CDT POC GLUCOSE Routine 01/01/2021 4:31 PM CDT TRIGLYCERIDE Routine 01/01/2021 3:37 PM CDT POC GLUCOSE Routine 01/01/2021 3:31 PM CDT POC GLUCOSE Routine 01/01/2021 2:31 PM CDT POC GLUCOSE Routine 01/01/2021 1:30 PM CDT POC GLUCOSE Routine 01/01/2021 12:24 PM CDT POC GLUCOSE Routine 01/01/2021 11:31 AM CDT POC GLUCOSE Routine 01/01/2021 10:30 AM CDT POC GLUCOSE Routine 01/01/2021 9:31 AM CDT POC GLUCOSE Routine 01/01/2021 8:32 AM CDT POC GLUCOSE Routine 01/01/2021 7:55 AM CDT POC GLUCOSE Routine 01/01/2021 7:29 AM CDT POC GLUCOSE Routine 01/01/2021 6:24 AM CDT CBC WITH DIFFERENTIAL Routine 01/01/2021 5:31 AM CDT TRIGLYCERIDE Routine 01/01/2021 5:31 AM CDT POC GLUCOSE Routine 01/01/2021 5:21 AM CDT POC GLUCOSE Routine 01/01/2021 4:15 AM CDT POC GLUCOSE Routine 01/01/2021 3:19 AM CDT POC GLUCOSE Routine 01/01/2021 2:12 AM CDT POC GLUCOSE Routine 01/01/2021 12:31 AM CDT POC GLUCOSE Routine 12/31/2020 11:43 PM CDT POC GLUCOSE Routine 12/31/2020 10:29 PM CDT POC GLUCOSE Routine 12/31/2020 9:33 PM CDT POC GLUCOSE Routine 12/31/2020 8:41 PM CDT POC GLUCOSE Routine 12/31/2020 7:29 PM CDT POC GLUCOSE Routine 12/31/2020 6:04 PM CDT POC GLUCOSE Routine 12/31/2020 5:03 PM CDT POC GLUCOSE Routine 12/31/2020 4:28 PM CDT POC GLUCOSE Routine 12/31/2020 3:22 PM CDT TRIGLYCERIDE Routine 12/31/2020 2:28 PM CDT POC GLUCOSE Routine 12/31/2020 2:16 PM CDT POC GLUCOSE Routine 12/31/2020 1:11 PM CDT POC GLUCOSE Routine 12/31/2020 12:05 PM CDT POC GLUCOSE Routine 12/31/2020 11:10 AM CDT POC GLUCOSE Routine 12/31/2020 10:14 AM CDT POC GLUCOSE Routine 12/31/2020 9:17 AM CDT POC GLUCOSE Routine 12/31/2020 8:02 AM CDT POC GLUCOSE Routine 12/31/2020 7:12 AM CDT POC GLUCOSE Routine 12/31/2020 5:46 AM CDT CBC WITH DIFFERENTIAL Routine 12/31/2020 5:21 AM CDT TRIGLYCERIDE Routine 12/31/2020 5:21 AM CDT POC GLUCOSE Routine 12/31/2020 4:48 AM CDT POC GLUCOSE Routine 12/31/2020 4:15 AM CDT POC GLUCOSE Routine 12/31/2020 3:46 AM CDT POC GLUCOSE Routine 12/31/2020 2:48 AM CDT POC GLUCOSE Routine 12/31/2020 1:44 AM CDT POC GLUCOSE Routine 12/31/2020 12:48 AM CDT POC GLUCOSE Routine 12/31/2020 12:07 AM CDT POC GLUCOSE Routine 12/30/2020 11:46 PM CDT POC GLUCOSE Routine 12/30/2020 11:05 PM CDT POC GLUCOSE Routine 12/30/2020 10:03 PM CDT POC GLUCOSE Routine 12/30/2020 9:00 PM CDT POC GLUCOSE Routine 12/30/2020 8:18 PM CDT POC GLUCOSE Routine 12/30/2020 6:48 PM CDT POC GLUCOSE Routine 12/30/2020 5:06 PM CDT POC GLUCOSE Routine 12/30/2020 4:02 PM CDT POC GLUCOSE Routine 12/30/2020 2:59 PM CDT POC GLUCOSE Routine 12/30/2020 2:03 PM CDT POC GLUCOSE Routine 12/30/2020 12:47 PM CDT POC GLUCOSE Routine 12/30/2020 11:39 AM CDT POC GLUCOSE Routine 12/30/2020 10:50 AM CDT POC GLUCOSE Routine 12/30/2020 9:47 AM CDT POC GLUCOSE Routine 12/30/2020 8:50 AM CDT POC GLUCOSE Routine 12/30/2020 7:50 AM CDT POC GLUCOSE Routine 12/30/2020 6:44 AM CDT POC GLUCOSE Routine 12/30/2020 5:47 AM CDT CBC WITH DIFFERENTIAL Routine 12/30/2020 4:34 AM CDT TRIGLYCERIDE Routine 12/30/2020 4:34 AM CDT POC GLUCOSE Routine 12/30/2020 4:26 AM CDT POC GLUCOSE Routine 12/30/2020 2:58 AM CDT POC GLUCOSE Routine 12/30/2020 2:13 AM CDT POC GLUCOSE Routine 12/30/2020 12:46 AM CDT POC GLUCOSE Routine 12/29/2020 11:18 PM CDT POC GLUCOSE Routine 12/29/2020 10:44 PM CDT POC GLUCOSE Routine 12/29/2020 9:43 PM CDT POC GLUCOSE Routine 12/29/2020 8:41 PM CDT POC GLUCOSE Routine 12/29/2020 8:05 PM CDT POC GLUCOSE Routine 12/29/2020 7:28 PM CDT POC GLUCOSE Routine 12/29/2020 6:38 PM CDT POC GLUCOSE Routine 12/29/2020 5:32 PM CDT POC GLUCOSE Routine 12/29/2020 4:29 PM CDT POC GLUCOSE Routine 12/29/2020 4:05 PM CDT POC GLUCOSE Routine 12/29/2020 3:50 PM CDT POC GLUCOSE Routine 12/29/2020 3:23 PM CDT POC GLUCOSE Routine 12/29/2020 2:23 PM CDT POC GLUCOSE Routine 12/29/2020 10:55 AM CDT CBC WITH DIFFERENTIAL Routine 12/29/2020 5:30 AM CDT TRIGLYCERIDE Routine 12/29/2020 5:30 AM CDT BASIC METABOLIC PANEL Routine 12/29/2020 5:30 AM CDT POC GLUCOSE Routine 12/28/2020 9:26 PM CDT POC GLUCOSE Routine 12/28/2020 5:42 PM CDT POC GLUCOSE Routine 12/28/2020 1:01 PM CDT POC GLUCOSE Routine 12/28/2020 11:28 AM CDT POC GLUCOSE Routine 12/28/2020 10:46 AM CDT POC GLUCOSE Routine 12/28/2020 9:37 AM CDT POC GLUCOSE Routine 12/28/2020 8:22 AM CDT POC GLUCOSE Routine 12/28/2020 6:59 AM CDT POC GLUCOSE Routine 12/28/2020 5:40 AM CDT POC GLUCOSE Routine 12/28/2020 4:43 AM CDT POC GLUCOSE Routine 12/28/2020 3:21 AM CDT CBC WITH DIFFERENTIAL Routine 12/28/2020 3:17 AM CDT TRIGLYCERIDE Routine 12/28/2020 3:17 AM CDT BASIC METABOLIC PANEL Routine 12/28/2020 3:17 AM CDT POC GLUCOSE Routine 12/28/2020 2:11 AM CDT POC GLUCOSE Routine 12/28/2020 12:56 AM CDT POC GLUCOSE Routine 12/28/2020 12:04 AM CDT POC GLUCOSE Routine 12/27/2020 11:02 PM CDT POC GLUCOSE Routine 12/27/2020 10:03 PM CDT POC GLUCOSE Routine 12/27/2020 9:05 PM CDT POC GLUCOSE Routine 12/27/2020 8:21 PM CDT POC GLUCOSE Routine 12/27/2020 7:31 PM CDT POC GLUCOSE Routine 12/27/2020 6:01 PM CDT POC GLUCOSE Routine 12/27/2020 4:48 PM CDT TRIGLYCERIDE Routine 12/27/2020 3:31 PM CDT POC GLUCOSE Routine 12/27/2020 2:56 PM CDT POC GLUCOSE Routine 12/27/2020 1:30 PM CDT POC GLUCOSE Routine 12/27/2020 12:16 PM CDT POC GLUCOSE Routine 12/27/2020 10:56 AM CDT POC GLUCOSE Routine 12/27/2020 9:56 AM CDT TROPONIN 6 HR, 5TH GEN Timed Study 9:05 AM CDT TSH REFLEXIVE Routine 12/27/2020 9:05 AM CDT BASIC METABOLIC PANEL Routine 12/27/2020 9:05 AM CDT POC GLUCOSE Routine 12/27/2020 8:31 AM CDT POC GLUCOSE Routine 12/27/2020 7:27 AM CDT POC GLUCOSE Routine 12/27/2020 6:00 AM CDT POC GLUCOSE Routine 12/27/2020 5:34 AM CDT POC GLUCOSE Routine 12/27/2020 5:07 AM CDT LACTIC ACID Stat 12/27/2020 4:20 AM CDT POC GLUCOSE Routine 12/27/2020 4:02 AM CDT POC GLUCOSE Routine 12/27/2020 3:32 AM CDT CBC WITH DIFFERENTIAL Routine 12/27/2020 3:05 AM CDT POC GLUCOSE Routine 12/27/2020 2:35 AM CDT POC GLUCOSE Routine 12/27/2020 12:42 AM CDT 2019 NOVEL CORONAVIRUS (COVID-19) PCR DETECTION Stat 12/26/2020 11:09 PM CDT URINALYSIS W/REFLEX MICROSCOPIC Stat 12/26/2020 10:[address] CHEST ABDOMEN PELVIS W CONT Stat 12/26/2020 10:02 PM CDT EKG 12-LEAD Stat 12/26/2020 9:42 PM CDT TROPONIN BASELINE, 5TH GEN Stat 12/26/2020 8:16 PM CDT DIFFERENTIAL, MANUAL Stat 12/26/2020 8:16 PM CDT CBC WITH DIFFERENTIAL Stat 12/26/2020 8:16 PM CDT KETONES/BETA HYDROXYBUTYRATE Routine 12/26/2020 8:16 PM CDT TRIGLYCERIDE Stat 12/26/2020 8:16 PM CDT LIPASE Stat 12/26/2020 8:16 PM CDT COMPREHENSIVE METABOLIC PANEL Stat 12/26/2020 8:16 PM CDT documented in this encounter Results * (ABNORMAL) POC GLUCOSE (01/02/2021 11:45 AM CDT) GLUCOSE POC 177(H) 74 - 99 mg/dL 01/02/2021 11:45 AM CDT [facility] - [facility] CREDIT ASSOCIATE NAME POC FRANCESCA MENG 01/02/2021 11:45 AM CDT [facility] - [facility] Blood, whole 01/02/2021 11:4 5 AM CDT 01/02/2021 11:57 AM CDT Manisha Cleveland MD POINT OF CARE TESTI LUCIANO Performing Organization Address [facility]/ZIP Co de Phone Number [facility] CLIA# [id number] [address] [place] [address] * (ABNORMAL) POC GLUCOSE (01/02/2021 9:38 AM CDT) GLUCOSE POC 127(H) 74 - 99 mg/dL 01/02/2021 9:38 AM CDT [facility] COMMENT, GLU POC Notified RN/ 01/02/2021 9:38 AM CDT [facility] CREDIT ASSOCIATE NAME POC CARLOS VALENCIA 01/02/2021 9:38 AM CDT [facility] Blood, whole 01/02/2021 9:38 AM CDT 01/02/2021 10:15 AM CDT Manisha Cleveland MD POINT OF CARE TESTI LUCIANO Performing Organization Address [facility]/ZIP Co de Phone Number [facility] SERVICES [facility] CLIA# [id number] [address] [place] [address] * (ABNORMAL) POC GLUCOSE (01/02/2021 8:43 AM CDT) GLUCOSE POC 123(H) 74 - 99 mg/dL 01/02/2021 8:43 AM CDT [facility] COMMENT, GLU POC Notified RN/ 01/02/2021 8:43 AM CDT [facility] CREDIT ASSOCIATE NAME POC CARLOS VALENCIA 01/02/2021 8:43 AM CDT [facility] Blood, whole 01/02/2021 8:43 AM CDT 01/02/2021 8:51 AM CDT Manisha Cleveland MD POINT OF CARE TESTI NG Performing Organization Address [facility] Co de Phone Number [facility] [employer] [facility]# [id number] [address] [place] [address] * (ABNORMAL) TRIGLYCERIDE (01/02/2021 7:52 AM CDT) TRIGLYCERIDE 476(H) <150 mg/dL 01/02/2021 9:04 AM CDT [facility] [facility] Blood Venipuncture / Unknown 01/02/2021 7:52 AM CDT 01/02/2021 7:53 AM CDT Narrative [facility] - 01/02/2021 9:04 AM CDT TRIGLYCERIDES ? mg/dL Normal ?< 150 Borderline High ?150 - 199 High ? 200 - 499 Very High ? >= 500 Based on AHA/NCEP Guidelines. Manisha Cleveland MD CHEMISTRY ORDERABLE S Performing Organization Address [facility] Co de Phone Number [facility] [employer] [facility]# [id number] [address] [place] [address] * POC GLUCOSE (01/02/2021 7:29 AM CDT) GLUCOSE POC 94 74 - 99 mg/dL 01/02/2021 7:29 AM CDT [facility] CREDIT ASSOCIATE NAME POC FRANCESCA MENG 01/02/2021 7:29 AM CDT [facility] Blood, whole 01/02/2021 7:29 AM CDT 01/02/2021 7:45 AM CDT Manisha Cleveland MD POINT OF CARE TESTI NG [facility] CLIA# [id number] [address] [place] [address] * (ABNORMAL) POC GLUCOSE (01/02/2021 6:30 AM CDT) GLUCOSE POC 117(H) 74 - 99 mg/dL 01/02/2021 6:30 AM CDT [facility]ORATORY SERVICES [facility] CREDIT ASSOCIATE NAME POC GENOVEVA SMYTH 01/02/2021 6:30 AM CDT [facility] Blood, whole 01/02/2021 6:30 AM CDT 01/02/2021 6:36 AM CDT Manisha Cleveland MD POINT OF CARE TESTI NG [facility] CLIA# [id number] [address] [place] [address] * (ABNORMAL) POC GLUCOSE (01/02/2021 5:39 AM CDT) GLUCOSE POC 115(H) 74 - 99 mg/dL 01/02/2021 5:39 AM CDT [facility] CREDIT ASSOCIATE NAME POC GENOVEVA SMYTH 01/02/2021 5:39 AM CDT [facility] Blood, whole 01/02/2021 5:39 AM CDT 01/02/2021 5:50 AM CDT Manisha Cleveland MD POINT OF CARE TESTI NG [facility] CLIA# [id number] [address] [place] [address] * (ABNORMAL) POC GLUCOSE (01/02/2021 4:41 AM CDT) [facility] GLUCOSE POC 119(H) 74 - 99 mg/dL 01/02/2021 4:41 AM CDT [facility] LABORATORY SERVICES - [facility] COMMENT, GLU POC Notified RN/MD 01/02/2021 4:41 AM CDT [facility] - [facility] CREDIT ASSOCIATE NAME POC JACK GAINES 01/02/2021 4:41 AM CDT [facility] - [facility] Blood, whole 01/02/2021 4:41 AM CDT 01/02/2021 4:47 AM CDT Manisha Cleveland MD POINT OF CARE TESTI NG [facility] LABORATORY SERVICES [facility]# [id number] [address] [place] [address] * (ABNORMAL) CBC WITH DIFFERENTIAL (01/02/2021 3:35 AM CDT) [facility] WBC 5.7 4.0 - 9.8 K/uL 01/02/2021 3:44 AM CDT [facility] SERVICES - [facility] RBC 4.19 3.90 - 4.90 M/uL 01/02/2021 3:44 AM CDT [facility] - [facility] HEMOGLOBIN 12.3 11.8 - 14.8 g/dL 01/02/2021 3:44 AM CDT [facility] - [facility] HEMATOCRIT 38.0 35.5 - 44.0 % 01/02/2021 3:44 AM CDT [facility] - [facility] MCV 90.7 82.0 - 99.0 fL 01/02/2021 3:44 AM CDT [facility] - [facility] MCH 29.4 27.2 - 32.6 pg 01/02/2021 3:44 AM CDT [facility] - [facility] MCHC 32.4 31.5 - 35.5 g/dL 01/02/2021 3:44 AM CDT [facility] - [facility] RDW 14.6(H) 11.5 - 14.5 % 01/02/2021 3:44 AM CDT [facility] - [facility] RDW-STDEV 49.1(H) 37.1 - 48.7 fL 01/02/2021 3:44 AM CDT [facility] - [facility] PLATELETS 221 140 - 350 K/uL 01/02/2021 3:44 AM CDT [facility] - . [facility] MPV 8.9(L) 9.3 - 12.4 fL 01/02/2021 3:44 AM CDT [facility] - [facility] NEUTROPHILS 55 % 01/02/2021 3:44 AM CDT [facility] - [facility] LYMPHOCYTES 36 % 01/02/2021 3:44 AM CDT [facility] - [facility] MONOCYTES 6 % 01/02/2021 3:44 AM CDT [facility] - [facility] EOSINOPHILS 2 % 01/02/2021 3:44 AM CDT [facility] - [facility] BASOPHILS 1 % 01/02/2021 3:44 AM CDT [facility] - . [facility] IMMATURE GRANULOCYTES 1 % 01/02/2021 3:44 AM CDT [facility] - . [facility] Comment:IG (Immature Granulo cyte) count includes Metamyelocytes, Myelocytes, and Promyelocytes NEUTROPHIL ABSOLUTE 3.12 1.90 - 7.00 K/uL 01/02/2021 3:44 AM CDT [facility] - [facility] LYMPHOCYTE ABSOLUTE 2.04 0.70 - 4.50 K/uL 01/02/2021 3:44 AM CDT [facility] - [facility] MONOCYTE ABSOLUTE 0.35 0.10 - 1.30 K/uL 01/02/2021 3:44 AM CDT [facility] - [facility] EOSINOPHIL ABSOLUTE 0.09 0.00 - 0.70 K/uL 01/02/2021 3:44 AM CDT [facility] - [facility] BASOPHILS ABSOLUTE 0.03 0.00 - 0.20 K/uL 01/02/2021 3:44 AM CDT [facility] - . [facility] IMMATURE GRANULOCYTES ABSOLUTE 0.05(H) 0.00 - 0.03 K/uL 01/02/2021 3:44 AM CDT [facility] Blood Venipuncture / Unknown 01/02/2021 3:35 AM CDT 01/02/2021 3:39 AM CDT Manisha Cleveland MD HEMATOLOGY ORDERABL ES Performing Organization Address [facility]/ZIP Co de Phone Number [facility]# [id number] [address] [place] [address] * (ABNORMAL) POC GLUCOSE (01/02/2021 3:31 AM CDT) GLUCOSE POC 121(H) 74 - 99 mg/dL 01/02/2021 3:31 AM CDT [facility] CREDIT ASSOCIATE NAME POC GENOVEVA SMYTH 01/02/2021 3:31 AM CDT [facility] Blood, whole 01/02/2021 3:31 AM CDT 01/02/2021 3:53 AM CDT Manisha Cleveland MD POINT OF CARE TESTI NG Performing Organization Address [facility] Co de Phone Number [facility]# [id number] [address] [place] [address] * (ABNORMAL) POC GLUCOSE (01/02/2021 2:37 AM CDT) GLUCOSE POC 114(H) 74 - 99 mg/dL 01/02/2021 2:37 AM CDT [facility] CREDIT ASSOCIATE NAME POC GENOVEVA SMYTH 01/02/2021 2:37 AM CDT [facility] Blood, whole 01/02/2021 2:37 AM CDT 01/02/2021 2:46 AM CDT Manisha Cleveland MD POINT OF CARE TESTI NG [id number] [address] [place] [address] * POC GLUCOSE (01/02/2021 2:03 AM CDT) GLUCOSE POC 96 74 - 99 mg/dL 01/02/2021 2:03 AM CDT [facility] LABORATORY SERVICES [facility] CREDIT ASSOCIATE NAME POC GENOVEVA SMYTH 01/02/2021 2:03 AM CDT [facility] SERVICES [facility] Blood, whole 01/02/2021 2:03 AM CDT 01/02/2021 2:15 AM CDT Manisha Cleveland MD POINT OF CARE TESTI NG Performing Organization Address [facility]/ZIP Co de Phone Number [facility]AT[facility] SERVICES [facility] CLIA# [id number] [address] [place] [address] * POC GLUCOSE (01/02/2021 1:28 AM CDT) GLUCOSE POC 92 74 - 99 mg/dL 01/02/2021 1:28 AM CDT [facility]AT[facility] SERVICES [facility] COMMENT, GLU POC Notified RN/MD 01/02/2021 1:28 AM CDT [facility] LABORATORY SERVICES [facility] CREDIT ASSOCIATE NAME POC JACK GAINES 01/02/2021 1:28 AM CDT [facility] LAB[facility]AT[facility] SERVICES [facility] Blood, whole 01/02/2021 1:28 AM CDT 01/02/2021 1:35 AM CDT Manisha Cleveland MD POINT OF CARE TESTI NG [facility] CLIA# [id number] [address] [place] [address] * (ABNORMAL) POC GLUCOSE (01/02/2021 12:31 AM CDT) GLUCOSE POC 120(H) 74 - 99 mg/dL 01/02/2021 12:31 AM CDT [facility] CREDIT ASSOCIATE NAME POC GENOVEVA SMYTH 01/02/2021 12:31 AM CDT [facility] SERVICES [facility] Blood, whole 01/02/2021 12:3 1 AM CDT 01/02/2021 12:42 AM CDT Manisha Cleveland MD POINT OF CARE TESTI LUCIANO [facility] CLIA# [id number] [address] [place] [address] * (ABNORMAL) POC GLUCOSE (01/01/2021 11:18 PM CDT) GLUCOSE POC 147(H) 74 - 99 mg/dL 01/01/2021 11:18 PM CDT [facility] CREDIT ASSOCIATE NAME GENOVEVA RAMOS 01/01/2021 11:18 PM CDT [facility] LABORATORY SERVICES [facility] Blood, whole 01/01/2021 11:1 8 PM CDT 01/01/2021 11:27 PM CDT Manisha Cleveland MD POINT OF CARE TESTChris WOLF [facility] LAB[facility]ATORY [facility] CLIA# [id number] [address] [place] [address] * (ABNORMAL) POC GLUCOSE (01/01/2021 10:05 PM CDT) GLUCOSE POC 155(H) 74 - 99 mg/dL 01/01/2021 10:05 PM CDT [facility] CREDIT ASSOCIATE NAME GENOVEVA RAMOS 01/01/2021 10:05 PM CDT [facility] SERVICES [facility] Blood, whole 01/01/2021 10:0 5 PM CDT 01/01/2021 10:14 PM CDT Manisha Cleveland MD POINT OF CARE TESTI NG [facility] CLIA# [id number] [address] [place] [address] * (ABNORMAL) POC GLUCOSE (01/01/2021 8:30 PM CDT) GLUCOSE POC 196(H) 74 - 99 mg/dL 01/01/2021 8:30 PM CDT [facility] CREDIT ASSOCIATE NAME POC GENOVEVA SMYTH 01/01/2021 8:30 PM CDT [facility]ATORY SERVICES [facility] Blood, whole 01/01/2021 8:30 PM CDT 01/01/2021 8:40 PM CDT Manisha Cleveland MD POINT OF CARE TESTChris NG [facility] [employer] [facility] CLIA# [id number] [address] [place] [address] * (ABNORMAL) POC GLUCOSE (01/01/2021 7:29 PM CDT) GLUCOSE POC 126(H) 74 - 99 mg/dL 01/01/2021 7:29 PM CDT [facility] CREDIT ASSOCIATE NAME POC GENOVEVA SMYTH 01/01/2021 7:29 PM CDT [facility]AT[facility] SERVICES [facility] Blood, whole 01/01/2021 7:29 PM CDT 01/01/2021 7:41 PM CDT Manisha Cleveland MD POINT OF CARE TESTChris NG [facility] CLIA# [id number] [address] [place] [address] * (ABNORMAL) POC GLUCOSE (01/01/2021 6:33 PM CDT) GLUCOSE POC 149(H) 74 - 99 mg/dL 01/01/2021 6:33 PM CDT [facility] CREDIT ASSOCIATE NAME ALLIE OHARA 01/01/2021 6:33 PM CDT [facility]ORATORY SERVICES [facility] Blood, whole 01/01/2021 6:33 PM CDT 01/01/2021 6:45 PM CDT Manisha Cleveland MD POINT OF CARE TESTI NG [facility]# [id number] [address] [place] [address] * (ABNORMAL) POC GLUCOSE (01/01/2021 6:02 PM CDT) GLUCOSE POC 129(H) 74 - 99 mg/dL 01/01/2021 6:02 PM CDT [facility] CREDIT ASSOCIATE NAME ALLIE OHARA 01/01/2021 6:02 PM CDT [facility] Blood, whole 01/01/2021 6:02 PM CDT 01/01/2021 6:13 PM CDT Manisha Cleveland MD POINT OF CARE TESTI NG [facility]# [id number] [address] [place] [address] * (ABNORMAL) POC GLUCOSE (01/01/2021 5:31 PM CDT) GLUCOSE POC 106(H) 74 - 99 mg/dL 01/01/2021 5:31 PM CDT [facility] CREDIT ASSOCIATE NAME ALLIE OHARA 01/01/2021 5:31 PM CDT [facility]AT[facility] SERVICES [facility] Blood, whole 01/01/2021 5:31 PM CDT 01/01/2021 5:46 PM CDT Manisha Cleveland MD POINT OF CARE TESTChris WOLF [facility]# [id number] [address] [place] [address] * (ABNORMAL) POC GLUCOSE (01/01/2021 4:31 PM CDT) GLUCOSE POC 140(H) 74 - 99 mg/dL 01/01/2021 4:31 PM CDT [facility] CREDIT ASSOCIATE NAME POC ALLIE MADRIGAL 01/01/2021 4:31 PM CDT [facility] Blood, whole 01/01/2021 4:31 PM CDT 01/01/2021 4:40 PM CDT Manisha Cleveland MD POINT OF CARE TESTChris WOLF Performing Organization Address City/[facility]/ZIP Co de Phone Number [facility] [employer] [facility]# [id number] [address] [place] [address] * (ABNORMAL) TRIGLYCERIDE (01/01/2021 3:37 PM CDT) TRIGLYCERIDE 515(H) <150 mg/dL 01/01/2021 4:16 PM CDT [facility] Blood Venipuncture / Unknown 01/01/2021 3:37 PM CDT 01/01/2021 3:44 PM CDT Narrative [facility] - 01/01/2021 4:16 PM CDT TRIGLYCERIDES ? mg/dL Normal ?< 150 Borderline High ?150 - 199 High ? 200 - 499 Very High ? >= 500 Based on AHA/NCEP Guidelines. Manisha Cleveland MD CHEMISTRY ORDERABLE S [facility] [id number] [address] [place] [address] * (ABNORMAL) POC GLUCOSE (01/01/2021 3:31 PM CDT) GLUCOSE POC 180(H) 74 - 99 mg/dL 01/01/2021 3:31 PM CDT [facility] CREDIT ASSOCIATE NAME ALLIE OHARA 01/01/2021 3:31 PM CDT [facility] Blood, whole 01/01/2021 3:31 PM CDT 01/01/2021 3:45 PM CDT Manisha Cleveland MD POINT OF CARE TESTChris WOLF Performing Organization Address [facility]/ZIP Co de Phone Number [facility]# [id number] [address] [place] [address] * (ABNORMAL) POC GLUCOSE (01/01/2021 2:31 PM CDT) GLUCOSE POC 179(H) 74 - 99 mg/dL 01/01/2021 2:31 PM CDT [facility] CREDIT ASSOCIATE NAME ALLIE OHARA 01/01/2021 2:31 PM CDT [facility] Blood, whole 01/01/2021 2:31 PM CDT 01/01/2021 2:39 PM CDT Manisha Cleveland MD POINT OF CARE TESTChris NG Performing Organization Address City/[facility]/ZIP Co de Phone Number [facility] CLIA# [id number] [address] [place] [address] * (ABNORMAL) POC GLUCOSE (01/01/2021 1:30 PM CDT) GLUCOSE POC 156(H) 74 - 99 mg/dL 01/01/2021 1:30 PM CDT [facility] CREDIT ASSOCIATE NAME POC KATIE HERRERA 01/01/2021 1:30 PM CDT [facility] Blood, whole 01/01/2021 1:30 PM CDT 01/01/2021 1:42 PM CDT Manisha Cleveland MD POINT OF CARE TESTI NG Performing Organization Address City/[facility]/ZIP Co de Phone Number [facility] CLIA# [id number] [address] [place] [address] * (ABNORMAL) POC GLUCOSE (01/01/2021 12:24 PM CDT) GLUCOSE POC 170(H) 74 - 99 mg/dL 01/01/2021 12:24 PM CDT [facility] CREDIT ASSOCIATE NAME POC ALLIE MADRIGAL 01/01/2021 12:24 PM CDT [facility] Blood, whole 01/01/2021 12:2 4 PM CDT 01/01/2021 12:38 PM CDT Manisha Cleveland MD POINT OF CARE TESTI NG [facility] CLIA# [id number] [address] [place] [address] * (ABNORMAL) POC GLUCOSE (01/01/2021 11:31 AM CDT) GLUCOSE POC 144(H) 74 - 99 mg/dL 01/01/2021 11:31 AM CDT [facility] CREDIT ASSOCIATE NAME POC ANA MADRIGALN 01/01/2021 11:31 AM CDT [facility] Blood, whole 01/01/2021 11:3 1 AM CDT 01/01/2021 11:42 AM CDT Manisha Cleveland MD POINT OF CARE TESTI NG [facility] CLIA# [id number] [address] [place] [address] * POC GLUCOSE (01/01/2021 10:30 AM CDT) GLUCOSE POC 90 74 - 99 mg/dL 01/01/2021 10:30 AM CDT [facility] CREDIT ASSOCIATE NAME POC ANA MADRIGALN 01/01/2021 10:30 AM CDT [facility] Blood, whole 01/01/2021 10:3 0 AM CDT 01/01/2021 10:39 AM CDT Manisha Cleveland MD POINT OF CARE TESTI NG Performing Organization Address City/[facility]/ZIP Co de Phone Number [facility] [employer] [facility] CLIA# [id number] [address] [place] [address] * (ABNORMAL) POC GLUCOSE (01/01/2021 9:31 AM CDT) GLUCOSE POC 111(H) 74 - 99 mg/dL 01/01/2021 9:31 AM CDT [facility] CREDIT ASSOCIATE NAME POC ROMA MADRIGALISYN 01/01/2021 9:31 AM CDT [facility] Blood, whole 01/01/2021 9:31 AM CDT 01/01/2021 9:42 AM CDT Manisha Cleveland MD POINT OF CARE TESTI NG [facility] LABORATORY [facility] CLIA# [id number] [address] [place] [address] * (ABNORMAL) POC GLUCOSE (01/01/2021 8:32 AM CDT) GLUCOSE POC 113(H) 74 - 99 mg/dL 01/01/2021 8:32 AM CDT [facility] LABORAT[facility] CREDIT ASSOCIATE NAME POC ALLIE MADRIGAL 01/01/2021 8:32 AM CDT [facility] LABORATORY SERVICES [facility] Blood, whole 01/01/2021 8:32 AM CDT 01/01/2021 8:48 AM CDT Manisha Cleveland MD POINT OF CARE TESTI LUCIANO Performing Organization Address [facility]/ZIP Co de Phone Number [facility] LABORATORY [facility] CLIA# [id number] [address] [place] [address] * (ABNORMAL) POC GLUCOSE (01/01/2021 7:55 AM CDT) GLUCOSE POC 134(H) 74 - 99 mg/dL 01/01/2021 7:55 AM CDT [facility] LABORATORY [facility] CREDIT ASSOCIATE NAME POC SHAINA MCKEON 01/01/2021 7:55 AM CDT [facility] LABORATORY [facility] Blood, whole 01/01/2021 7:55 AM CDT 01/01/2021 8:08 AM CDT Manisha Cleveland MD POINT OF CARE TESTI LUCIANO [facility] CLIA# [id number] [address] [place] [address] * (ABNORMAL) POC GLUCOSE (01/01/2021 7:29 AM CDT) GLUCOSE POC 142(H) 74 - 99 mg/dL 01/01/2021 7:29 AM CDT [facility] LABORATORY SERVICES [facility] CREDIT ASSOCIATE NAME POC KATIE HERRERA 01/01/2021 7:29 AM CDT [facility] LABORATORY SERVICES [facility] Blood, whole 01/01/2021 7:29 AM CDT 01/01/2021 7:37 AM CDT Manisha Cleveland MD POINT OF CARE TESTChris WOLF Performing Organization Address City/[facility]/ZIP Co de Phone Number [id number] [address] [place] [address] * (ABNORMAL) POC GLUCOSE (01/01/2021 6:24 AM CDT) GLUCOSE POC 164(H) 74 - 99 mg/dL 01/01/2021 6:24 AM CDT [facility] LABORATORY SERVICES [facility] CREDIT ASSOCIATE NAME POC MARGARITA HOFFMAN 01/01/2021 6:24 AM CDT [facility] LABORATORY SERVICES [facility] Blood, whole 01/01/2021 6:24 AM CDT 01/01/2021 6:32 AM CDT Manisha Cleveland MD POINT OF CARE TESTChris WOLF [facility] LABORATORY [facility]# [id number] [address] [place] [address] * (ABNORMAL) CBC WITH DIFFERENTIAL (01/01/2021 5:31 AM CDT) WBC 6.3 4.0 - 9.8 K/uL 01/01/2021 6:21 AM CDT [facility] LABORATORY SERVICES - [facility] RBC 4.31 3.90 - 4.90 M/uL 01/01/2021 6:21 AM CDT [facility] LABORATORY SERVICES - [facility] HEMOGLOBIN 12.7 11.8 - 14.8 g/dL 01/01/2021 6:21 AM CDT [facility] LABORATORY SERVICES - [facility] HEMATOCRIT 39.5 35.5 - 44.0 % 01/01/2021 6:21 AM CDT [facility] LABORATORY SERVICES - [facility] MCV 91.6 82.0 - 99.0 fL 01/01/2021 6:21 AM CDT [facility] LABORATORY SERVICES - [facility] MCH 29.5 27.2 - 32.6 pg 01/01/2021 6:21 AM CDT [facility] LABORATORY SERVICES - [facility] MCHC 32.2 31.5 - 35.5 g/dL 01/01/2021 6:21 AM CDT [facility] LABORATORY SERVICES - [facility] RDW 14.8(H) 11.5 - 14.5 % 01/01/2021 6:21 AM CDT [facility] LABORATORY SERVICES - [facility] RDW-STDEV 50.4(H) 37.1 - 48.7 fL 01/01/2021 6:21 AM CDT [facility] LABORATORY SERVICES - [facility] PLATELETS 239 140 - 350 K/uL 01/01/2021 6:21 AM CDT [facility] LABORATORY SERVICES - [facility] MPV 9.4 9.3 - 12.4 fL 01/01/2021 6:21 AM CDT [facility] LABORATORY SERVICES - [facility] NEUTROPHILS 57 % 01/01/2021 6:21 AM CDT [facility] LABORATORY SERVICES - [facility] LYMPHOCYTES 32 % 01/01/2021 6:21 AM CDT [facility] LABORATORY SERVICES - [facility] MONOCYTES 8 % 01/01/2021 6:21 AM CDT [facility] LABORATORY SERVICES - [facility] EOSINOPHILS 2 % 01/01/2021 6:21 AM CDT [facility] LABORATORY SERVICES - . [facility] BASOPHILS 1 % 01/01/2021 6:21 AM CDT [facility] LABORATORY SERVICES - . [facility] IMMATURE GRANULOCYTES 1 % 01/01/2021 6:21 AM CDT [facility] LABORATORY SERVICES - . [facility] Comment:IG (Immature Granulo cyte) count includes Metamyelocytes, Myelocytes, and Promyelocytes NEUTROPHIL ABSOLUTE 3.60 1.90 - 7.00 K/uL 01/01/2021 6:21 AM CDT [facility] LABORATORY SERVICES - . [facility] LYMPHOCYTE ABSOLUTE 2.01 0.70 - 4.50 K/uL 01/01/2021 6:21 AM CDT [facility] LABORATORY SERVICES - . [facility] MONOCYTE ABSOLUTE 0.47 0.10 - 1.30 K/uL 01/01/2021 6:21 AM CDT [facility] LABORATORY SERVICES - [facility] EOSINOPHIL ABSOLUTE 0.11 0.00 - 0.70 K/uL 01/01/2021 6:21 AM CDT [facility] LABORATORY SERVICES - [facility] BASOPHILS ABSOLUTE 0.04 0.00 - 0.20 K/uL 01/01/2021 6:21 AM CDT [facility] LABORATORY SERVICES - [facility] IMMATURE GRANULOCYTES ABSOLUTE 0.04(H) 0.00 - 0.03 K/uL 01/01/2021 6:21 AM CDT [facility] LABORATORY SERVICES - [facility] Blood Venipuncture / Unknown 01/01/2021 5:31 AM CDT 01/01/2021 5:59 AM CDT Manisha Cleveland MD HEMATOLOGY ORDERABL ES Performing Organization Address [facility] Co de Phone Number [facility] LABORATORY [facility] CLIA# [id number] [address] [place] [address] * (ABNORMAL) TRIGLYCERIDE (01/01/2021 5:31 AM CDT) TRIGLYCERIDE 556(H) <150 mg/dL 01/01/2021 6:59 AM CDT [facility] LABORATORY SERVICES - [facility] Blood Venipuncture / Unknown 01/01/2021 5:31 AM CDT 01/01/2021 5:59 AM CDT Narrative [facility] LABORATORY SERVICES - [facility] - 01/01/2021 6:59 AM CDT TRIGLYCERIDES ? mg/dL Normal ?< 150 Borderline High ?150 - 199 High ? 200 - 499 Very High ? >= 500 Based on AHA/NCEP Guidelines. Manisha Cleveland MD CHEMISTRY ORDERABLE S Performing Organization Address [facility] Co de Phone Number [facility] [employer] [facility] CLIA# [id number] [address] [place] [address] * (ABNORMAL) POC GLUCOSE (01/01/2021 5:21 AM CDT) GLUCOSE POC 168(H) 74 - 99 mg/dL 01/01/2021 5:21 AM CDT [facility] LABORATORY [facility] CREDIT ASSOCIATE NAME MARGARITA BAUM 01/01/2021 5:21 AM CDT [facility] LABORATORY SERVICES [facility] Blood, whole 01/01/2021 5:21 AM CDT 01/01/2021 5:29 AM CDT Manisha Cleveland MD POINT OF CARE TESTI NG Performing Organization Address City/[facility]/ZIP Co de Phone Number [facility] [employer] [facility] CLIA# [id number] [address] [place] [address] * (ABNORMAL) POC GLUCOSE (01/01/2021 4:15 AM CDT) GLUCOSE POC 139(H) 74 - 99 mg/dL 01/01/2021 4:15 AM CDT [facility] LABORATORY [facility] CREDIT ASSOCIATE NAME MARGARITA BAUM 01/01/2021 4:15 AM CDT [facility] LABORATORY SERVICES [facility] Blood, whole 01/01/2021 4:15 AM CDT 01/01/2021 4:26 AM CDT Manisha Cleveland MD POINT OF CARE TESTI NG Performing Organization Address City/[facility]/ZIP Co de Phone Number [facility] CLIA# [id number] [address] [place] [address] * (ABNORMAL) POC GLUCOSE (01/01/2021 3:19 AM CDT) GLUCOSE POC 131(H) 74 - 99 mg/dL 01/01/2021 3:19 AM CDT [facility] LABORATORY SERVICES [facility] CREDIT ASSOCIATE NAME MARGARITA BAUM 01/01/2021 3:19 AM CDT [facility] LABORATORY SERVICES [facility] Blood, whole 01/01/2021 3:19 AM CDT 01/01/2021 3:59 AM CDT Manisha Cleveland MD POINT OF CARE TESTI NG [facility] LABORATORY [facility] CLIA# [id number] [address] [place] [address] * (ABNORMAL) POC GLUCOSE (01/01/2021 2:12 AM CDT) GLUCOSE POC 132(H) 74 - 99 mg/dL 01/01/2021 2:12 AM CDT [facility] LABORATORY SERVICES [facility] CREDIT ASSOCIATE NAME POC MARGARITA HOFFMAN 01/01/2021 2:12 AM CDT [facility] LABORATORY SERVICES [facility] Blood, whole 01/01/2021 2:12 AM CDT 01/01/2021 2:19 AM CDT Manisha Cleveland MD POINT OF CARE TESTI NG [facility]# [id number] [address] [place] [address] * (ABNORMAL) POC GLUCOSE (01/01/2021 12:31 AM CDT) GLUCOSE POC 138(H) 74 - 99 mg/dL 01/01/2021 12:31 AM CDT [facility] LABORATORY SERVICES [facility] CREDIT ASSOCIATE NAME POC PHYLLIS MADERA 01/01/2021 12:31 AM CDT [facility] LABORATORY SERVICES [facility] Blood, whole 01/01/2021 12:3 1 AM CDT 01/01/2021 12:46 AM CDT Manisha Cleveland MD POINT OF CARE TESTI NG [id number] [address] [place] [address] * (ABNORMAL) POC GLUCOSE (12/31/2020 11:43 PM CDT) GLUCOSE POC 121(H) 74 - 99 mg/dL 12/31/2020 11:43 PM CDT [facility] LABORATORY [facility] CREDIT ASSOCIATE NAME POC MARGARITA HOFFMAN 12/31/2020 11:43 PM CDT [facility] LABORATORY SERVICES [facility] Blood, whole 12/31/2020 11:4 3 PM CDT 12/31/2020 11:50 PM CDT Manisha Cleveland MD POINT OF CARE TESTI NG [facility] LABORATORY [facility] CLIA# [id number] [address] [place] [address] * (ABNORMAL) POC GLUCOSE (12/31/2020 10:29 PM CDT) GLUCOSE POC 176(H) 74 - 99 mg/dL 12/31/2020 10:29 PM CDT [facility] LABORATORY [facility] CREDIT ASSOCIATE NAME POC YAMIL LUKE 12/31/2020 10:29 PM CDT [facility] LABORATORY [facility] Blood, whole 12/31/2020 10:2 9 PM CDT 12/31/2020 10:45 PM CDT Manisha Cleveland MD POINT OF CARE TESTI NG [facility] LABORATORY [facility] CLIA# [id number] [address] [place] [address] * (ABNORMAL) POC GLUCOSE (12/31/2020 9:33 PM CDT) GLUCOSE POC 144(H) 74 - 99 mg/dL 12/31/2020 9:33 PM CDT [facility] LABORATORY [facility] CREDIT ASSOCIATE NAME MARGARITA BAUM 12/31/2020 9:33 PM CDT [facility] LABORATORY SERVICES [facility] Blood, whole 12/31/2020 9:33 PM CDT 12/31/2020 9:41 PM CDT Manisha Cleveland MD POINT OF CARE TESTI NG Performing Organization Address City/[facility]/ZIP Co de Phone Number [facility] LABORATORY [facility]# [id number] [address] [place] [address] * (ABNORMAL) POC GLUCOSE (12/31/2020 8:41 PM CDT) GLUCOSE POC 117(H) 74 - 99 mg/dL 12/31/2020 8:41 PM CDT [facility] LABORATORY [facility] CREDIT ASSOCIATE NAME MARGARITA BAUM 12/31/2020 8:41 PM CDT [facility] LABORATORY SERVICES [facility] Blood, whole 12/31/2020 8:41 PM CDT 12/31/2020 8:51 PM CDT Manisha Cleveland MD POINT OF CARE TESTI NG Performing Organization Address [facility] Co de Phone Number [facility]# [id number] [address] [place] [address] * (ABNORMAL) POC GLUCOSE (12/31/2020 7:29 PM CDT) GLUCOSE POC 113(H) 74 - 99 mg/dL 12/31/2020 7:29 PM CDT [facility] LABORATORY [facility] CREDIT ASSOCIATE NAME MARGARITA BAUM 12/31/2020 7:29 PM CDT [facility] LABORATORY [facility] Blood, whole 12/31/2020 7:29 PM CDT 12/31/2020 7:40 PM CDT Manisha Cleveland MD POINT OF CARE TESTI NG [facility] [employer] [facility]# [id number] [address] [place] [address] * (ABNORMAL) POC GLUCOSE (12/31/2020 6:04 PM CDT) GLUCOSE POC 138(H) 74 - 99 mg/dL 12/31/2020 6:04 PM CDT [facility] LABORATORY SERVICES [facility] COMMENT, GLU POC Notified RN/ 12/31/2020 6:04 PM CDT [facility] LABORATORY SERVICES [facility] CREDIT ASSOCIATE NAME POC COREY GARVEY 12/31/2020 6:04 PM CDT [facility] LABORATORY SERVICES [facility] Blood, whole 12/31/2020 6:04 PM CDT 12/31/2020 6:13 PM CDT Manisha Cleveland MD POINT OF CARE TESTI NG Performing Organization Address City/[facility]/ZIP Co de Phone Number [facility] LABORATORY [facility]# [id number] [address] [place] [address] * (ABNORMAL) POC GLUCOSE (12/31/2020 5:03 PM CDT) GLUCOSE POC 165(H) 74 - 99 mg/dL 12/31/2020 5:03 PM CDT [facility] LABORATORY SERVICES [facility] COMMENT, GLU POC Notified BREANN 12/31/2020 5:03 PM CDT [facility] LABORATORY SERVICES [facility] CREDIT ASSOCIATE NAME POC COREY GARVEY 12/31/2020 5:03 PM CDT [facility] LABORATORY SERVICES [facility] Blood, whole 12/31/2020 5:03 PM CDT 12/31/2020 5:12 PM CDT Manisha Cleveland MD POINT OF CARE TESTI NG Performing Organization Address City/[facility]/ZIP Co de Phone Number [facility] [id number] [address] [place] [address] * (ABNORMAL) POC GLUCOSE (12/31/2020 4:28 PM CDT) GLUCOSE POC 130(H) 74 - 99 mg/dL 12/31/2020 4:28 PM CDT [facility] LABORATORY SERVICES - [facility] COMMENT, GLU POC Notified RN/ 12/31/2020 4:28 PM CDT [facility] LABORATORY SERVICES - [facility] CREDIT ASSOCIATE NAME POC PUJA COURTNEY 12/31/2020 4:28 PM CDT [facility] LABORATORY SERVICES - [facility] Blood, whole 12/31/2020 4:28 PM CDT 12/31/2020 4:43 PM CDT Manisha Cleveland MD POINT OF CARE TESTChris WOLF Performing Organization Address City/[facility]/ZIP Co de Phone Number [facility] LABORATORY SERVICES [facility] CLIA# [id number] [address] [place] [address] * (ABNORMAL) POC GLUCOSE (12/31/2020 3:22 PM CDT) GLUCOSE POC 127(H) 74 - 99 mg/dL 12/31/2020 3:22 PM CDT [facility] LABORATORY SERVICES - [facility] COMMENT, GLU POC Notified CLAU/ 12/31/2020 3:22 PM CDT [facility] LABORATORY SERVICES - [facility] CREDIT ASSOCIATE NAME POC COREY GARVEY 12/31/2020 3:22 PM CDT [facility] LABORATORY SERVICES - [facility] Blood, whole 12/31/2020 3:22 PM CDT 12/31/2020 3:32 PM CDT Manisha Cleveland MD POINT OF CARE TESTI NG [facility] LABORATORY [facility] CLIA# [id number] [address] [place] [address] * (ABNORMAL) TRIGLYCERIDE (12/31/2020 2:28 PM CDT) TRIGLYCERIDE 561(H) <150 mg/dL 12/31/2020 3:23 PM CDT [facility] LABORATORY [facility] Blood Venipuncture / Unknown 12/31/2020 2:28 PM CDT 12/31/2020 2:50 PM CDT Narrative [facility] LABORATORY SERVICES - [facility] - 12/31/2020 3:23 PM CDT TRIGLYCERIDES ? mg/dL Normal ?< 150 Borderline High ?150 - 199 High ? 200 - 499 Very High ? >= 500 Based on AHA/NCEP Guidelines. Manisha Cleveland MD CHEMISTRY ORDERABLE S [facility]# [id number] [address] [place] [address] * (ABNORMAL) POC GLUCOSE (12/31/2020 2:16 PM CDT) [facility] GLUCOSE POC 167(H) 74 - 99 mg/dL 12/31/2020 2:16 PM CDT [facility] LABORATORY [facility] COMMENT, GLU POC Notified RN/ 12/31/2020 2:16 PM CDT [facility] LABORATORY [facility] CREDIT ASSOCIATE NAME POC COREY GARVEY 12/31/2020 2:16 PM CDT [facility] LABORATORY [facility] Blood, whole 12/31/2020 2:16 PM CDT 12/31/2020 2:25 PM CDT Manisha Cleveland MD POINT OF CARE TESTI NG [facility] [id number] [address] [place] [address] * (ABNORMAL) POC GLUCOSE (12/31/2020 1:11 PM CDT) GLUCOSE POC 148(H) 74 - 99 mg/dL 12/31/2020 1:11 PM CDT [facility] LABORATORY SERVICES - [facility] COMMENT, GLU POC Notified RN/ 12/31/2020 1:11 PM CDT [facility] LABORATORY SERVICES - [facility] CREDIT ASSOCIATE NAME POC COREY GARVEY 12/31/2020 1:11 PM CDT [facility] LABORATORY SERVICES [facility] Blood, whole 12/31/2020 1:11 PM CDT 12/31/2020 1:18 PM CDT Manisha Cleveland MD POINT OF CARE TESTI LUCIANO Performing Organization Address [facility] Co de Phone Number [facility] LABORATORY [facility] CLIA# [id number] [address] [facility] [place] [address] * (ABNORMAL) POC GLUCOSE (12/31/2020 12:05 PM CDT) GLUCOSE POC 131(H) 74 - 99 mg/dL 12/31/2020 12:05 PM CDT [facility] LABORATORY SERVICES [facility] COMMENT, GLU POC Notified RN/ 12/31/2020 12:05 PM CDT [facility] LABORATORY SERVICES [facility] CREDIT ASSOCIATE NAME POC COREY GARVEY 12/31/2020 12:05 PM CDT [facility] LABORATORY SERVICES [facility] Blood, whole 12/31/2020 12:0 5 PM CDT 12/31/2020 12:20 PM CDT Manisha Cleveland MD POINT OF CARE TESTChris WOLF Performing Organization Address City/[facility]/ZIP Co de Phone Number [facility] LABORATORY [facility] CLIA# [id number] [address] [place] [address] * (ABNORMAL) POC GLUCOSE (12/31/2020 11:10 AM CDT) GLUCOSE POC 136(H) 74 - 99 mg/dL 12/31/2020 11:10 AM CDT [facility] LABORATORY SERVICES [facility] CREDIT ASSOCIATE NAME POC BRAD Nicholspn-VICKI DE LEÓN 12/31/2020 11:10 AM CDT [facility] LABORATORY SERVICES [facility] Blood, whole 12/31/2020 11:1 0 AM CDT 12/31/2020 11:23 AM CDT Manisha Cleveland MD POINT OF CARE TESTChris WOLF Performing Organization Address [facility]/ZIP Co de Phone Number [facility] LABORATORY [facility] CLIA# [id number] [address] [place] [address] * POC GLUCOSE (12/31/2020 10:14 AM CDT) GLUCOSE POC 98 74 - 99 mg/dL 12/31/2020 10:14 AM CDT [facility] LABORATORY SERVICES [facility] COMMENT, GLU POC Notified RN/ 12/31/2020 10:14 AM CDT [facility] LABORATORY SERVICES [facility] CREDIT ASSOCIATE NAME POC COREY GARVEY 12/31/2020 10:14 AM CDT [facility] LABORATORY SERVICES [facility] Blood, whole 12/31/2020 10:1 4 AM CDT 12/31/2020 10:26 AM CDT Manisha Cleveland MD POINT OF CARE TESTChris WOLF Performing Organization Address City/[facility]/ZIP Co de Phone Number [facility] LABORATORY [facility] CLIA# [id number] [address] [place] [address] * (ABNORMAL) POC GLUCOSE (12/31/2020 9:17 AM CDT) GLUCOSE POC 101(H) 74 - 99 mg/dL 12/31/2020 9:17 AM CDT [facility] LABORATORY SERVICES [facility] COMMENT, GLU POC Notified RN/ 12/31/2020 9:17 AM CDT [facility]AT[facility] CREDIT ASSOCIATE NAME POC COREY GARVEY 12/31/2020 9:17 AM CDT [facility] LABORATORY SERVICES [facility] Blood, whole 12/31/2020 9:17 AM CDT 12/31/2020 9:25 AM CDT Manisha Cleveland MD POINT OF CARE TESTI NG Performing Organization Address City/[facility]/ZIP Co de Phone Number [facility]# [id number] [address] [facility] [address] [place] [place] [address] * POC GLUCOSE (12/31/2020 8:02 AM CDT) GLUCOSE POC 98 74 - 99 mg/dL 12/31/2020 8:02 AM CDT [facility] LABORATORY [facility] CREDIT ASSOCIATE NAME POC BRAD (pn-WILLMERIN Nguyen VICKI 12/31/2020 8:02 AM CDT [facility] LABORATORY SERVICES [facility] Blood, whole 12/31/2020 8:02 AM CDT 12/31/2020 8:21 AM CDT Manisha Cleveland MD POINT OF CARE TESTI NG Performing Organization Address [facility] Co de Phone Number [facility] [id number] [address] [facility] [place] [address] * (ABNORMAL) POC GLUCOSE (12/31/2020 7:12 AM CDT) GLUCOSE POC 100(H) 74 - 99 mg/dL 12/31/2020 7:12 AM CDT [facility] CREDIT ASSOCIATE NAME POC PHYLLIS MADERA 12/31/2020 7:12 AM CDT [facility] Blood, whole 12/31/2020 7:12 AM CDT 12/31/2020 7:21 AM CDT Manisha Cleveland MD POINT OF CARE TESTI NG Performing Organization Address City/[facility]/ZIP Co de Phone Number [facility] [id number] [address] [place] [address] * POC GLUCOSE (12/31/2020 5:46 AM CDT) Pathologist [facility] GLUCOSE POC 98 74 - 99 mg/dL 12/31/2020 5:46 AM CDT [facility] - [facility] COMMENT, GLU POC Notified RN/MD 12/31/2020 5:46 AM CDT [facility] - [facility] CREDIT ASSOCIATE NAME POC SOY MCKEON 12/31/2020 5:46 AM CDT [facility] - [facility] Blood, whole 12/31/2020 5:46 AM CDT 12/31/2020 5:54 AM CDT Manisha Cleveland MD POINT OF CARE TESTI NG Performing Organization Address City/[facility]/ZIP Co de Phone Number [facility]ORATORY SERVICES [facility]# [id number] [address] [place] [address] * (ABNORMAL) CBC WITH DIFFERENTIAL (12/31/2020 5:21 AM CDT) [facility] WBC 6.0 4.0 - 9.8 K/uL 12/31/2020 5:50 AM CDT [facility] - [facility] RBC 3.95 3.90 - 4.90 M/uL 12/31/2020 5:50 AM CDT [facility] - [facility] HEMOGLOBIN 11.9 11.8 - 14.8 g/dL 12/31/2020 5:50 AM CDT [facility] - [facility] HEMATOCRIT 36.0 35.5 - 44.0 % 12/31/2020 5:50 AM CDT [facility] - . [facility] MCV 91.1 82.0 - 99.0 fL 12/31/2020 5:50 AM CDT [facility] - . [facility] MCH 30.1 27.2 - 32.6 pg 12/31/2020 5:50 AM CDT [facility] - [facility] MCHC 33.1 31.5 - 35.5 g/dL 12/31/2020 5:50 AM CDT [facility] - [facility] RDW 15.0(H) 11.5 - 14.5 % 12/31/2020 5:50 AM CDT [facility] - [facility] RDW-STDEV 50.5(H) 37.1 - 48.7 fL 12/31/2020 5:50 AM CDT [facility] - [facility] PLATELETS 219 140 - 350 K/uL 12/31/2020 5:50 AM CDT [facility] - [facility] MPV 9.1(L) 9.3 - 12.4 fL 12/31/2020 5:50 AM CDT [facility] - [facility] NEUTROPHILS 55 % 12/31/2020 5:50 AM CDT [facility] - [facility] LYMPHOCYTES 36 % 12/31/2020 5:50 AM CDT [facility] - [facility] MONOCYTES 6 % 12/31/2020 5:50 AM CDT [facility] - [facility] EOSINOPHILS 1 % 12/31/2020 5:50 AM CDT [facility] - [facility] BASOPHILS 0 % 12/31/2020 5:50 AM CDT [facility] - [facility] IMMATURE GRANULOCYTES 1 % 12/31/2020 5:50 AM CDT [facility] - [facility] Comment:IG (Immature Granulo cyte) count includes Metamyelocytes, Myelocytes, and Promyelocytes NEUTROPHIL ABSOLUTE 3.29 1.90 - 7.00 K/uL 12/31/2020 5:50 AM CDT [facility] LYMPHOCYTE ABSOLUTE 2.17 0.70 - 4.50 K/uL 12/31/2020 5:50 AM CDT [facility] MONOCYTE ABSOLUTE 0.38 0.10 - 1.30 K/uL 12/31/2020 5:50 AM CDT [facility] EOSINOPHIL ABSOLUTE 0.08 0.00 - 0.70 K/uL 12/31/2020 5:50 AM CDT [facility] BASOPHILS ABSOLUTE 0.02 0.00 - 0.20 K/uL 12/31/2020 5:50 AM CDT [facility] IMMATURE GRANULOCYTES ABSOLUTE 0.06(H) 0.00 - 0.03 K/uL 12/31/2020 5:50 AM CDT [facility] Blood Venipuncture / Unknown 12/31/2020 5:21 AM CDT 12/31/2020 5:32 AM CDT Manisha Cleveland MD HEMATOLOGY ORDERABL ES Performing Organization Address City/[facility]/ZIP Co de Phone Number [facility] [id number] [address] [place] [address] * (ABNORMAL) TRIGLYCERIDE (12/31/2020 5:21 AM CDT) TRIGLYCERIDE 588(H) <150 mg/dL 12/31/2020 6:18 AM CDT [facility] Blood Venipuncture / Unknown 12/31/2020 5:21 AM CDT 12/31/2020 5:32 AM CDT Narrative [facility] - 12/31/2020 6:18 AM CDT TRIGLYCERIDES ? mg/dL Normal ?< 150 Borderline High ?150 - 199 High ? 200 - 499 Very High ? >= 500 Based on AHA/NCEP Guidelines. Manisha Cleveland MD CHEMISTRY ORDERABLE S Performing Organization Address [facility] Co de Phone Number [facility]# [id number] [address] [place] [address] * POC GLUCOSE (12/31/2020 4:48 AM CDT) GLUCOSE POC 96 74 - 99 mg/dL 12/31/2020 4:48 AM CDT [facility] SERVICES - [facility] CREDIT ASSOCIATE NAME POC SOY MCKEON 12/31/2020 4:48 AM CDT [facility] - [facility] Blood, whole 12/31/2020 4:48 AM CDT 12/31/2020 4:56 AM CDT Manisha Cleveland MD POINT OF CARE TESTI NG Performing Organization Address [facility]/ZIP Co de Phone Number [facility] [id number] [address] [facility] [place] [address] * (ABNORMAL) POC GLUCOSE (12/31/2020 4:15 AM CDT) GLUCOSE POC 114(H) 74 - 99 mg/dL 12/31/2020 4:15 AM CDT [facility] - [facility] CREDIT ASSOCIATE NAME POC PHYLLIS MADERA 12/31/2020 4:15 AM CDT [facility] - [facility] Blood, whole 12/31/2020 4:15 AM CDT 12/31/2020 4:23 AM CDT Manisha Cleveland MD POINT OF CARE TESTI NG Performing Organization Address [facility] Co de Phone Number [facility]# [id number] [address] [place] [address] [place] [address] * (ABNORMAL) POC GLUCOSE (12/31/2020 3:46 AM CDT) GLUCOSE POC 110(H) 74 - 99 mg/dL 12/31/2020 3:46 AM CDT [facility] - [facility] COMMENT, GLU POC Notified RN/MD 12/31/2020 3:46 AM CDT [facility] - [facility] CREDIT ASSOCIATE NAME POC SOY MCKEON 12/31/2020 3:46 AM CDT [facility] - [facility] Blood, whole 12/31/2020 3:46 AM CDT 12/31/2020 4:05 AM CDT Manisha Cleveland MD POINT OF CARE TESTI NG Performing Organization Address [facility] Co de Phone Number [facility]# [id number] [address] [place] [address] * (ABNORMAL) POC GLUCOSE (12/31/2020 2:48 AM CDT) GLUCOSE POC 177(H) 74 - 99 mg/dL 12/31/2020 2:48 AM CDT [facility] - [facility] COMMENT, GLU POC Notified RN/ 12/31/2020 2:48 AM CDT [facility] - [facility] CREDIT ASSOCIATE NAME POC SOY MCKEON 12/31/2020 2:48 AM CDT [facility] Blood, whole 12/31/2020 2:48 AM CDT 12/31/2020 2:59 AM CDT Manisha Cleveland MD POINT OF CARE TESTI NG Performing Organization Address [facility] Co de Phone Number [facility] [facility]# [id number] [address] [place] [address] * (ABNORMAL) POC GLUCOSE (12/31/2020 1:44 AM CDT) GLUCOSE POC 110(H) 74 - 99 mg/dL 12/31/2020 1:44 AM CDT [facility] - [facility] COMMENT, GLU POC Notified RN/ 12/31/2020 1:44 AM CDT [facility] - [facility] CREDIT ASSOCIATE NAME POC SOY MCKEON 12/31/2020 1:44 AM CDT [facility] Blood, whole 12/31/2020 1:44 AM CDT 12/31/2020 1:51 AM CDT Manisha Cleveland MD POINT OF CARE TESTI NG Performing Organization Address City/[facility]/ZIP Co de Phone Number [facility] SERVICES [facility] CLIA# [id number] [address] [place] [address] * (ABNORMAL) POC GLUCOSE (12/31/2020 12:48 AM CDT) GLUCOSE POC 104(H) 74 - 99 mg/dL 12/31/2020 12:48 AM CDT [facility] SERVICES - [facility] CREDIT ASSOCIATE NAME POC PHYLLIS MADERA 12/31/2020 12:48 AM CDT [facility] SERVICES [facility] Blood, whole 12/31/2020 12:4 8 AM CDT 12/31/2020 12:58 AM CDT Manisha Cleveland MD POINT OF CARE TESTI NG Performing Organization Address City/[facility]/ZIP Co de Phone Number [facility] CLIA# [id number] [address] [place] [address] * (ABNORMAL) POC GLUCOSE (12/31/2020 12:07 AM CDT) GLUCOSE POC 108(H) 74 - 99 mg/dL 12/31/2020 12:07 AM CDT [facility] SERVICES [facility] COMMENT, GLU POC Notified RN/MD 12/31/2020 12:07 AM CDT [facility] SERVICES - [facility] CREDIT ASSOCIATE NAME POC SOY MCKEON 12/31/2020 12:07 AM CDT [facility] SERVICES [facility] Blood, whole 12/31/2020 12:0 7 AM CDT 12/31/2020 12:15 AM CDT Manisha Cleveland MD POINT OF CARE TESTI NG [facility] CLIA# [id number] [address] [place] [address] * (ABNORMAL) POC GLUCOSE (12/30/2020 11:46 PM CDT) GLUCOSE POC 110(H) 74 - 99 mg/dL 12/30/2020 11:46 PM CDT [facility] SERVICES - [facility] CREDIT ASSOCIATE NAME POC PYHLLIS MADERA 12/30/2020 11:46 PM CDT [facility] SERVICES [facility] Blood, whole 12/30/2020 11:4 6 PM CDT 12/30/2020 11:59 PM CDT Manisha Cleveland MD POINT OF CARE TESTI NG Performing Organization Address City/[facility]/ZIP Co de Phone Number [facility] CLIA# [id number] [address] [place] [address] * POC GLUCOSE (12/30/2020 11:05 PM CDT) GLUCOSE POC 99 74 - 99 mg/dL 12/30/2020 11:05 PM CDT [facility] COMMENT, GLU POC Notified RN/ 12/30/2020 11:05 PM CDT [facility] - [facility] CREDIT ASSOCIATE NAME POC SOY MCKEON 12/30/2020 11:05 PM CDT [facility] Blood, whole 12/30/2020 11:0 5 PM CDT 12/30/2020 11:14 PM CDT Manisha Cleveland MD POINT OF CARE TESTI NG [facility] CLIA# [id number] [address] [place] [address] * (ABNORMAL) POC GLUCOSE (12/30/2020 10:03 PM CDT) GLUCOSE POC 132(H) 74 - 99 mg/dL 12/30/2020 10:03 PM CDT [facility] COMMENT, GLU POC Notified RN/ 12/30/2020 10:03 PM CDT [facility] CREDIT ASSOCIATE NAME POC SOY MCKEON 12/30/2020 10:03 PM CDT [facility] SERVICES [facility] Blood, whole 12/30/2020 10:0 3 PM CDT 12/30/2020 10:10 PM CDT Manisha Cleveland MD POINT OF CARE TESTI NG Performing Organization Address [facility] Co de Phone Number [facility]# [id number] [address] [facility] [place] [address] * POC GLUCOSE (12/30/2020 9:00 PM CDT) GLUCOSE POC 94 74 - 99 mg/dL 12/30/2020 9:00 PM CDT [facility] SERVICES [facility] COMMENT, GLU POC Notified RN/ 12/30/2020 9:00 PM CDT [facility] SERVICES [facility] CREDIT ASSOCIATE NAME POC SOY MCKEON 12/30/2020 9:00 PM CDT [facility] SERVICES [facility] Blood, whole 12/30/2020 9:00 PM CDT 12/30/2020 9:14 PM CDT Manisha Cleveland MD POINT OF CARE TESTI NG Performing Organization Address [facility] Co de Phone Number [facility]# [id number] [address] [place] [address] [place] [address] * (ABNORMAL) POC GLUCOSE (12/30/2020 8:18 PM CDT) GLUCOSE POC 105(H) 74 - 99 mg/dL 12/30/2020 8:18 PM CDT [facility] SERVICES [facility] COMMENT, GLU POC Notified RN/ 12/30/2020 8:18 PM CDT [facility] SERVICES [facility] CREDIT ASSOCIATE NAME POC SOY MCKEON 12/30/2020 8:18 PM CDT [facility] SERVICES [facility] Blood, whole 12/30/2020 8:18 PM CDT 12/30/2020 8:31 PM CDT Manisha Cleveland MD POINT OF CARE TESTI NG [facility] CLIA# [id number] [address] [place] [address] * (ABNORMAL) POC GLUCOSE (12/30/2020 6:48 PM CDT) GLUCOSE POC 150(H) 74 - 99 mg/dL 12/30/2020 6:48 PM CDT [facility] SERVICES [facility] CREDIT ASSOCIATE NAME POC JAZMINE BECK 12/30/2020 6:48 PM CDT [facility] SERVICES [facility] Blood, whole 12/30/2020 6:48 PM CDT 12/30/2020 7:00 PM CDT Manisha Cleveland MD POINT OF CARE TESTI NG Performing Organization Address City/[facility]/ZIP Co de Phone Number [facility] CLIA# [id number] [address] [place] [address] * (ABNORMAL) POC GLUCOSE (12/30/2020 5:06 PM CDT) GLUCOSE POC 173(H) 74 - 99 mg/dL 12/30/2020 5:06 PM CDT [facility] SERVICES [facility] CREDIT ASSOCIATE NAME POC JAZMINE BECK 12/30/2020 5:06 PM CDT [facility] Blood, whole 12/30/2020 5:06 PM CDT 12/30/2020 5:24 PM CDT Manisha Cleveland MD POINT OF CARE TESTI NG [facility] CLIA# [id number] [address] [place] [address] * (ABNORMAL) POC GLUCOSE (12/30/2020 4:02 PM CDT) GLUCOSE POC 147(H) 74 - 99 mg/dL 12/30/2020 4:02 PM CDT [facility] SERVICES [facility] COMMENT, GLU POC Notified CLAU/ 12/30/2020 4:02 PM CDT [facility] SERVICES - [facility] CREDIT ASSOCIATE NAME POC JOANNA, DEMETRIO 12/30/2020 4:02 PM CDT [facility] SERVICES [facility] Blood, whole 12/30/2020 4:02 PM CDT 12/30/2020 4:11 PM CDT Manisha Cleveland MD POINT OF CARE TESTI NG Performing Organization Address [facility]/ZIP Co de Phone Number [facility] CLIA# [id number] [address] [place] [address] * (ABNORMAL) POC GLUCOSE (12/30/2020 2:59 PM CDT) GLUCOSE POC 145(H) 74 - 99 mg/dL 12/30/2020 2:59 PM CDT [facility] SERVICES - [facility] COMMENT, GLU POC Notified CLAU/ 12/30/2020 2:59 PM CDT [facility] SERVICES [facility] CREDIT ASSOCIATE NAME POC JOANNA, DEMETRIO 12/30/2020 2:59 PM CDT [facility] SERVICES [facility] Blood, whole 12/30/2020 2:59 PM CDT 12/30/2020 3:06 PM CDT Manisha Cleveland MD POINT OF CARE TESTI NG Performing Organization Address City/[facility]/ZIP Co de Phone Number [facility] CLIA# [id number] [address] [place] [address] * (ABNORMAL) POC GLUCOSE (12/30/2020 2:03 PM CDT) GLUCOSE POC 134(H) 74 - 99 mg/dL 12/30/2020 2:03 PM CDT [facility] SERVICES - [facility] COMMENT, GLU POC Notified RN/MD 12/30/2020 2:03 PM CDT [facility]ORY SERVICES - [facility] CREDIT ASSOCIATE NAME POC JAZMINE BECK 12/30/2020 2:03 PM CDT [facility] SERVICES - [facility] Blood, whole 12/30/2020 2:03 PM CDT 12/30/2020 2:18 PM CDT Manisha Cleveland MD POINT OF CARE TESTChris WOLF [facility] CLIA# [id number] [address] [place] [place] [address] * (ABNORMAL) POC GLUCOSE (12/30/2020 12:47 PM CDT) GLUCOSE POC 103(H) 74 - 99 mg/dL 12/30/2020 12:47 PM CDT [facility] SERVICES - [facility] CREDIT ASSOCIATE NAME POC JAZMINE BECK 12/30/2020 12:47 PM CDT [facility] SERVICES [facility] Blood, whole 12/30/2020 12:4 7 PM CDT 12/30/2020 1:03 PM CDT Manisha Cleveland MD POINT OF CARE TESTChris WOLF [facility] CLIA# [id number] [address] [place] [address] * (ABNORMAL) POC GLUCOSE (12/30/2020 11:39 AM CDT) GLUCOSE POC 106(H) 74 - 99 mg/dL 12/30/2020 11:39 AM CDT [facility] SERVICES - [facility] CREDIT ASSOCIATE NAME POC DOREEN BURGESS 12/30/2020 11:39 AM CDT [facility] Blood, whole 12/30/2020 11:3 9 AM CDT 12/30/2020 11:55 AM CDT Manisha Cleveland MD POINT OF CARE TESTI NG Performing Organization Address City/[facility]/ZIP Co de Phone Number [facility] CLIA# [id number] [address] [place] [address] * (ABNORMAL) POC GLUCOSE (12/30/2020 10:50 AM CDT) GLUCOSE POC 122(H) 74 - 99 mg/dL 12/30/2020 10:50 AM CDT [facility] CREDIT ASSOCIATE NAME POC DOREEN BURGESS 12/30/2020 10:50 AM CDT [facility] Blood, whole 12/30/2020 10:5 0 AM CDT 12/30/2020 10:57 AM CDT Manisha Cleveland MD POINT OF CARE TESTI NG Performing Organization Address [facility]/ZIP Co de Phone Number [facility] [employer] [facility] CLIA# [id number] [address] [place] [address] * (ABNORMAL) POC GLUCOSE (12/30/2020 9:47 AM CDT) GLUCOSE POC 136(H) 74 - 99 mg/dL 12/30/2020 9:47 AM CDT [facility] CREDIT ASSOCIATE NAME POC DOREEN BURGESS 12/30/2020 9:47 AM CDT [facility] Blood, whole 12/30/2020 9:47 AM CDT 12/30/2020 9:59 AM CDT Manisha Cleveland MD POINT OF CARE TESTI NG [facility] CLIA# [id number] [address] [place] [address] * (ABNORMAL) POC GLUCOSE (12/30/2020 8:50 AM CDT) GLUCOSE POC 123(H) 74 - 99 mg/dL 12/30/2020 8:50 AM CDT [facility]ORY SERVICES - [facility] CREDIT ASSOCIATE NAME POC HUDSON REMY 12/30/2020 8:50 AM CDT [facility] SERVICES [facility] Blood, whole 12/30/2020 8:50 AM CDT 12/30/2020 9:00 AM CDT Manisha Cleveland MD POINT OF CARE TESTChris WOLF [facility] [facility] CLIA# [id number] [address] [place] [address] * (ABNORMAL) POC GLUCOSE (12/30/2020 7:50 AM CDT) GLUCOSE POC 167(H) 74 - 99 mg/dL 12/30/2020 7:50 AM CDT [facility] SERVICES [facility] CREDIT ASSOCIATE NAME POC DOREEN BURGESS 12/30/2020 7:50 AM CDT [facility] SERVICES [facility] Blood, whole 12/30/2020 7:50 AM CDT 12/30/2020 8:02 AM CDT Manisha Cleveland MD POINT OF CARE TESTI NG [facility] CLIA# [id number] [address] [place] [address] * (ABNORMAL) POC GLUCOSE (12/30/2020 6:44 AM CDT) GLUCOSE POC 119(H) 74 - 99 mg/dL 12/30/2020 6:44 AM CDT [facility]ATORY SERVICES [facility] CREDIT ASSOCIATE NAME JEFFRY ZAPATA 12/30/2020 6:44 AM CDT [facility] SERVICES [facility] Blood, whole 12/30/2020 6:44 AM CDT 12/30/2020 6:52 AM CDT Manisha Cleveland MD POINT OF CARE TESTI LUCIANO Performing Organization Address City/[facility]/ZIP Co de Phone Number [facility] CLIA# [id number] [address] [place] [address] * (ABNORMAL) POC GLUCOSE (12/30/2020 5:47 AM CDT) GLUCOSE POC 104(H) 74 - 99 mg/dL 12/30/2020 5:47 AM CDT [facility]ATORY SERVICES [facility] CREDIT ASSOCIATE NAME JEFFRY ZAPATA 12/30/2020 5:47 AM CDT [facility] Blood, whole 12/30/2020 5:47 AM CDT 12/30/2020 5:56 AM CDT Manisha Cleveland MD POINT OF CARE TESTI LUCIANO Performing Organization Address City/[facility]/ZIP Co de Phone Number [facility] CLIA# [id number] [address] [place] [address] * (ABNORMAL) CBC WITH DIFFERENTIAL (12/30/2020 4:34 AM CDT) WBC 4.8 4.0 - 9.8 K/uL 12/30/2020 5:08 AM CDT [facility] SERVICES - [facility] RBC 3.88(L) 3.90 - 4.90 M/uL 12/30/2020 5:08 AM CDT [facility] - [facility] HEMOGLOBIN 11.7(L) 11.8 - 14.8 g/dL 12/30/2020 5:08 AM CDT [facility]ORATORY SERVICES - [facility] HEMATOCRIT 35.8 35.5 - 44.0 % 12/30/2020 5:08 AM CDT [facility] MCV 92.3 82.0 - 99.0 fL 12/30/2020 5:08 AM CDT [facility] - [facility] MCH 30.2 27.2 - 32.6 pg 12/30/2020 5:08 AM CDT [facility] - [facility] MCHC 32.7 31.5 - 35.5 g/dL 12/30/2020 5:08 AM CDT [facility] RDW 15.0(H) 11.5 - 14.5 % 12/30/2020 5:08 AM CDT [facility] RDW-STDEV 50.8(H) 37.1 - 48.7 fL 12/30/2020 5:08 AM CDT [facility] PLATELETS 211 140 - 350 K/uL 12/30/2020 5:08 AM CDT [facility] MPV 8.8(L) 9.3 - 12.4 fL 12/30/2020 5:08 AM CDT [facility] NEUTROPHILS 55 % 12/30/2020 5:08 AM CDT [facility] LYMPHOCYTES 36 % 12/30/2020 5:08 AM CDT [facility] MONOCYTES 7 % 12/30/2020 5:08 AM CDT [facility] EOSINOPHILS 2 % 12/30/2020 5:08 AM CDT [facility] BASOPHILS 0 % 12/30/2020 5:08 AM CDT [facility] IMMATURE GRANULOCYTES 0 % 12/30/2020 5:08 AM CDT [facility] NEUTROPHIL ABSOLUTE 2.65 1.90 - 7.00 K/uL 12/30/2020 5:08 AM CDT [facility] LYMPHOCYTE ABSOLUTE 1.70 0.70 - 4.50 K/uL 12/30/2020 5:08 AM CDT [facility] MONOCYTE ABSOLUTE 0.31 0.10 - 1.30 K/uL 12/30/2020 5:08 AM CDT [facility] EOSINOPHIL ABSOLUTE 0.09 0.00 - 0.70 K/uL 12/30/2020 5:08 AM CDT [facility]ORATORY SERVICES - [facility] BASOPHILS ABSOLUTE 0.01 0.00 - 0.20 K/uL 12/30/2020 5:08 AM CDT [facility]ATORY SERVICES - . [facility] IMMATURE GRANULOCYTES ABSOLUTE 0.02 0.00 - 0.03 K/uL 12/30/2020 5:08 AM CDT [facility] SERVICES - [facility] Blood Venipuncture / Unknown 12/30/2020 4:34 AM CDT 12/30/2020 4:40 AM CDT Manisha Cleveland MD HEMATOLOGY ORDERABL ES Performing Organization Address [facility] Co de Phone Number [facility]# [id number] [address] [place] [address] * (ABNORMAL) TRIGLYCERIDE (12/30/2020 4:34 AM CDT) TRIGLYCERIDE 748(H) <150 mg/dL 12/30/2020 5:35 AM CDT [facility] - [facility] Blood Venipuncture / Unknown 12/30/2020 4:34 AM CDT 12/30/2020 4:40 AM CDT Narrative [facility] - [facility] - 12/30/2020 5:35 AM CDT TRIGLYCERIDES ? mg/dL Normal ?< 150 Borderline High ?150 - 199 High ? 200 - 499 Very High ? >= 500 Based on AHA/NCEP Guidelines. Manisha Cleveland MD CHEMISTRY ORDERABLE S Performing Organization Address [facility] Co de Phone Number [facility] [employer] [facility]# [id number] [address] [address] * (ABNORMAL) POC GLUCOSE (12/30/2020 4:26 AM CDT) GLUCOSE POC 110(H) 74 - 99 mg/dL 12/30/2020 4:26 AM CDT [facility] - [facility] CREDIT ASSOCIATE NAME JEFFRY ZAPATA 12/30/2020 4:26 AM CDT [facility] Blood, whole 12/30/2020 4:26 AM CDT 12/30/2020 4:42 AM CDT Manisha Cleveland MD POINT OF CARE TESTI NG [facility] CLIA# [id number] [address] [place] [address] * (ABNORMAL) POC GLUCOSE (12/30/2020 2:58 AM CDT) GLUCOSE POC 144(H) 74 - 99 mg/dL 12/30/2020 2:58 AM CDT [facility] - [facility] CREDIT ASSOCIATE NAME JEFFRY ZAPATA 12/30/2020 2:58 AM CDT [facility] Blood, whole 12/30/2020 2:58 AM CDT 12/30/2020 3:06 AM CDT Manisha Cleveland MD POINT OF CARE TESTI NG [facility] CLIA# [id number] [address] [place] [address] * (ABNORMAL) POC GLUCOSE (12/30/2020 2:13 AM CDT) GLUCOSE POC 147(H) 74 - 99 mg/dL 12/30/2020 2:13 AM CDT [facility] - [facility] CREDIT ASSOCIATE NAME JEFFRY ZAPATA 12/30/2020 2:13 AM CDT [facility] - [facility] Blood, whole 12/30/2020 2:13 AM CDT 12/30/2020 2:26 AM CDT Manisha Cleveland MD POINT OF CARE TESTI NG [id number] [address] [place] [address] * (ABNORMAL) POC GLUCOSE (12/30/2020 12:46 AM CDT) GLUCOSE POC 134(H) 74 - 99 mg/dL 12/30/2020 12:46 AM CDT [facility] CREDIT ASSOCIATE NAME OLLIE SHIELDSCHASTITYJEFFRY 12/30/2020 12:46 AM CDT [facility] [facility] Blood, whole 12/30/2020 12:4 6 AM CDT 12/30/2020 12:59 AM CDT Manisha Cleveland MD POINT OF CARE TESTChris NG Performing Organization Address [facility]/ZIP Co de Phone Number [facility] CLPA# [id number] [address] [place] [address] * (ABNORMAL) POC GLUCOSE (12/29/2020 11:18 PM CDT) GLUCOSE POC 166(H) 74 - 99 mg/dL 12/29/2020 11:18 PM CDT [facility] CREDIT ASSOCIATE NAME OLLIE NO JEFFRY 12/29/2020 11:18 PM CDT [facility] Blood, whole 12/29/2020 11:1 8 PM CDT 12/29/2020 11:26 PM CDT Manisha Cleveland MD POINT OF CARE TESTI NG [facility] CLIA# [id number] [address] [place] [address] * (ABNORMAL) POC GLUCOSE (12/29/2020 10:44 PM CDT) GLUCOSE POC 176(H) 74 - 99 mg/dL 12/29/2020 10:44 PM CDT [facility] SERVICES - [facility] CREDIT ASSOCIATE NAME JEFFRY ZAPATA 12/29/2020 10:44 PM CDT [facility] SERVICES - [facility] Blood, whole 12/29/2020 10:4 4 PM CDT 12/29/2020 10:53 PM CDT Manisha Cleveland MD POINT OF CARE TESTI NG [facility]# [id number] [address] [place] [address] * (ABNORMAL) POC GLUCOSE (12/29/2020 9:43 PM CDT) GLUCOSE POC 181(H) 74 - 99 mg/dL 12/29/2020 9:43 PM CDT [facility] SERVICES - [facility] CREDIT ASSOCIATE NAME POC JEFFRY CARO 12/29/2020 9:43 PM CDT [facility] SERVICES [facility] Blood, whole 12/29/2020 9:43 PM CDT 12/29/2020 9:54 PM CDT Manisha Cleveland MD POINT OF CARE TESTI NG [facility]# [id number] [address] [place] [address] * (ABNORMAL) POC GLUCOSE (12/29/2020 8:41 PM CDT) GLUCOSE POC 145(H) 74 - 99 mg/dL 12/29/2020 8:41 PM CDT [facility] SERVICES - [facility] CREDIT ASSOCIATE NAME POC JET CROWDER 12/29/2020 8:41 PM CDT [facility] SERVICES [facility] Blood, whole 12/29/2020 8:41 PM CDT 12/29/2020 8:57 PM CDT Manisha Cleveland MD POINT OF CARE TESTI NG [facility] SERVICES [facility] CLIA# [id number] [address] [place] [address] * POC GLUCOSE (12/29/2020 8:05 PM CDT) GLUCOSE POC 90 74 - 99 mg/dL 12/29/2020 8:05 PM CDT [facility] SERVICES [facility] CREDIT ASSOCIATE NAME OLLIE NOJEFFRY 12/29/2020 8:05 PM CDT [facility] Blood, whole 12/29/2020 8:05 PM CDT 12/29/2020 8:18 PM CDT Manisha Cleveland MD POINT OF CARE TESTI NG Performing Organization Address City/[facility]/ZIP Co de Phone Number [facility] SERVICES [facility] CLIA# [id number] [address] [place] [address] * (ABNORMAL) POC GLUCOSE (12/29/2020 7:28 PM CDT) GLUCOSE POC 72(L) 74 - 99 mg/dL 12/29/2020 7:28 PM CDT [facility] SERVICES - [facility] CREDIT ASSOCIATE NAME JEFFRY ZAPATA 12/29/2020 7:28 PM CDT [facility] SERVICES [facility] Blood, whole 12/29/2020 7:28 PM CDT 12/29/2020 7:38 PM CDT Manisha Cleveland MD POINT OF CARE TESTI NG [facility] SERVICES [facility] CLIA# [id number] [address] [place] [address] * (ABNORMAL) POC GLUCOSE (12/29/2020 6:38 PM CDT) GLUCOSE POC 113(H) 74 - 99 mg/dL 12/29/2020 6:38 PM CDT [facility] SERVICES [facility] COMMENT, GLU POC Notified RN/ 12/29/2020 6:38 PM CDT [facility] SERVICES [facility] CREDIT ASSOCIATE NAME POC LIGIA EMERY 12/29/2020 6:38 PM CDT [facility] SERVICES [facility] Blood, whole 12/29/2020 6:38 PM CDT 12/29/2020 6:45 PM CDT Manisha Cleveland MD POINT OF CARE TESTChris WOLF [facility] CLIA# [id number] [address] [place] [address] * (ABNORMAL) POC GLUCOSE (12/29/2020 5:32 PM CDT) [facility] GLUCOSE POC 130(H) 74 - 99 mg/dL 12/29/2020 5:32 PM CDT [facility] SERVICES [facility] COMMENT, GLU POC Notified RN/ 12/29/2020 5:32 PM CDT [facility] CREDIT ASSOCIATE NAME POC LIGIA EMERY 12/29/2020 5:32 PM CDT [facility] SERVICES [facility] Blood, whole 12/29/2020 5:32 PM CDT 12/29/2020 5:41 PM CDT Manisha Cleveland MD POINT OF CARE TESTI LUCIANO [facility] CLIA# [id number] [address] [place] [address] * (ABNORMAL) POC GLUCOSE (12/29/2020 4:29 PM CDT) GLUCOSE POC 126(H) 74 - 99 mg/dL 12/29/2020 4:29 PM CDT [facility] SERVICES - [facility] COMMENT, GLU POC Notified RN/ 12/29/2020 4:29 PM CDT [facility] SERVICES - [facility] CREDIT ASSOCIATE NAME POC LIGIA EMERY 12/29/2020 4:29 PM CDT [facility] SERVICES - [facility] Blood, whole 12/29/2020 4:29 PM CDT 12/29/2020 4:39 PM CDT Manisha Cleveland MD POINT OF CARE TESTI NG Performing Organization Address [facility]/ZIP Co de Phone Number [facility]# [id number] [address] [facility] [place] [place] [address] * POC GLUCOSE (12/29/2020 4:05 PM CDT) GLUCOSE POC 77 74 - 99 mg/dL 12/29/2020 4:05 PM CDT [facility] SERVICES [facility] CREDIT ASSOCIATE NAME POC JAZMINE BECK 12/29/2020 4:05 PM CDT [facility] SERVICES [facility] Blood, whole 12/29/2020 4:05 PM CDT 12/29/2020 4:43 PM CDT Manisha Cleveland MD POINT OF CARE TESTI NG Performing Organization Address City/[facility]/ZIP Co de Phone Number [facility]# [id number] [address] [place] [address] * (ABNORMAL) POC GLUCOSE (12/29/2020 3:50 PM CDT) GLUCOSE POC 60(L) 74 - 99 mg/dL 12/29/2020 3:50 PM CDT [facility] SERVICES [facility] COMMENT, GLU POC Notified RN/ 12/29/2020 3:50 PM CDT [facility] SERVICES [facility] CREDIT ASSOCIATE NAME POC JAZMINE BECK 12/29/2020 3:50 PM CDT [facility] LABORATORY SERVICES - [facility] Blood, whole 12/29/2020 3:50 PM CDT 12/29/2020 4:43 PM CDT Manisha Cleveland MD POINT OF CARE TESTI NG Performing Organization Address [facility]/ZIP Co de Phone Number [facility]# [id number] [address] [place] [address] * (ABNORMAL) POC GLUCOSE (12/29/2020 3:23 PM CDT) GLUCOSE POC 58(L) 74 - 99 mg/dL 12/29/2020 3:23 PM CDT [facility]ORATORY SERVICES [facility] COMMENT, GLU POC Notified RN/ 12/29/2020 3:23 PM CDT [facility] LABORATORY SERVICES - [facility] CREDIT ASSOCIATE NAME POC CHUN EMERYZABETH 12/29/2020 3:23 PM CDT [facility] Blood, whole 12/29/2020 3:23 PM CDT 12/29/2020 3:31 PM CDT Manisha Cleveland MD POINT OF CARE TESTChris NG Performing Organization Address [facility] Co de Phone Number [facility]# [id number] [address] [place] [address] * (ABNORMAL) POC GLUCOSE (12/29/2020 2:23 PM CDT) GLUCOSE POC 105(H) 74 - 99 mg/dL 12/29/2020 2:23 PM CDT [facility] COMMENT, GLU POC Notified RN/MD 12/29/2020 2:23 PM CDT [facility] SERVICES - [facility] CREDIT ASSOCIATE NAME POC JAZMINE BECK 12/29/2020 2:23 PM CDT [facility] Blood, whole 12/29/2020 2:23 PM CDT 12/29/2020 2:31 PM CDT Manisha Cleveland MD POINT OF CARE TESTChris WOLF Performing Organization Address [facility]/ZIP Co de Phone Number [facility] CLIA# [id number] [address] [place] [address] * (ABNORMAL) POC GLUCOSE (12/29/2020 10:55 AM CDT) GLUCOSE POC 154(H) 74 - 99 mg/dL 12/29/2020 10:55 AM CDT [facility] SERVICES [facility] COMMENT, GLU POC Notified RN/MD 12/29/2020 10:55 AM CDT [facility] SERVICES [facility] CREDIT ASSOCIATE NAME POC LIGIA EMERY 12/29/2020 10:55 AM CDT [facility] Blood, whole 12/29/2020 10:5 5 AM CDT 12/29/2020 11:09 AM CDT Manisha Cleveland MD POINT OF CARE TESTChris WOLF Performing Organization Address City/[facility]/ZIP Co de Phone Number [facility]# [id number] [address] [place] [address] * (ABNORMAL) CBC WITH DIFFERENTIAL (12/29/2020 5:30 AM CDT) WBC 5.4 4.0 - 9.8 K/uL 12/29/2020 6:05 AM CDT [facility] SERVICES [facility] RBC 4.42 3.90 - 4.90 M/uL 12/29/2020 6:05 AM CDT [facility] HEMOGLOBIN 13.3 11.8 - 14.8 g/dL 12/29/2020 6:05 AM CDT [facility] SERVICES - [facility] HEMATOCRIT 39.9 35.5 - 44.0 % 12/29/2020 6:05 AM CDT [facility] SERVICES - [facility] MCV 90.3 82.0 - 99.0 fL 12/29/2020 6:05 AM CDT [facility] - [facility] MCH 30.1 27.2 - 32.6 pg 12/29/2020 6:05 AM [employer] LABORATORY SERVICES - [facility] MCHC 33.3 31.5 - 35.5 g/dL 12/29/2020 6:05 AM [employer] LABORATORY SERVICES - [facility] RDW 15.0(H) 11.5 - 14.5 % 12/29/2020 6:05 AM [employer] [facility]AT[facility] SERVICES - [facility] RDW-STDEV 50.0(H) 37.1 - 48.7 fL 12/29/2020 6:05 AM [employer] [facility]AT[facility] SERVICES - [facility] PLATELETS 222 140 - 350 K/uL 12/29/2020 6:05 AM [employer] LABORATORY SERVICES - [facility] MPV 9.1(L) 9.3 - 12.4 fL 12/29/2020 6:05 AM [employer] LABORATORY SERVICES - [facility] NEUTROPHILS 69 % 12/29/2020 6:05 AM [employer] [facility]AT[facility] SERVICES - [facility] LYMPHOCYTES 24 % 12/29/2020 6:05 AM [employer] LAB[facility]ATORY SERVICES - [facility] MONOCYTES 5 % 12/29/2020 6:05 AM [employer] LAB[facility]ATORY SERVICES - [facility] EOSINOPHILS 1 % 12/29/2020 6:05 AM [employer] LABORATORY SERVICES - [facility] BASOPHILS 0 % 12/29/2020 6:05 AM [employer] LABORATORY SERVICES - [facility] IMMATURE GRANULOCYTES 0 % 12/29/2020 6:05 AM CDT [facility] LABORATORY SERVICES - [facility] NEUTROPHIL ABSOLUTE 3.76 1.90 - 7.00 K/uL 12/29/2020 6:05 AM CDT [facility] LABORATORY SERVICES - [facility] LYMPHOCYTE ABSOLUTE 1.30 0.70 - 4.50 K/uL 12/29/2020 6:05 AM [employer] LABORATORY SERVICES - [facility] MONOCYTE ABSOLUTE 0.27 0.10 - 1.30 K/uL 12/29/2020 6:05 AM CDT [employer] LABORATORY SERVICES - [facility] EOSINOPHIL ABSOLUTE 0.06 0.00 - 0.70 K/uL 12/29/2020 6:05 AM CDT [facility] SERVICES - [facility] BASOPHILS ABSOLUTE 0.02 0.00 - 0.20 K/uL 12/29/2020 6:05 AM CDT [facility] SERVICES - [facility] IMMATURE GRANULOCYTES ABSOLUTE 0.02 0.00 - 0.03 K/uL 12/29/2020 6:05 AM CDT [facility] - [facility] Blood Venipuncture / Unknown 12/29/2020 5:30 AM CDT 12/29/2020 5:49 AM CDT Manisha Cleveland MD HEMATOLOGY ORDERABL ES Performing Organization Address [facility] Co de Phone Number [facility]# [id number] [address] [place] [address] * (ABNORMAL) TRIGLYCERIDE (12/29/2020 5:30 AM CDT) TRIGLYCERIDE 1,073(H) <150 mg/dL 12/29/2020 6:45 AM CDT [facility] Blood Venipuncture / Unknown 12/29/2020 5:30 AM CDT 12/29/2020 5:49 AM CDT Narrative [facility] - [facility] - 12/29/2020 6:45 AM CDT TRIGLYCERIDES ? mg/dL Normal ?< 150 Borderline High ?150 - 199 High ? 200 - 499 Very High ? >= 500 Based on AHA/NCEP Guidelines. Manisha Cleveland MD CHEMISTRY ORDERABLE S Performing Organization Address [facility] Co de Phone Number [facility]# [id number] [address] [place] [address] * (ABNORMAL) BASIC METABOLIC PANEL (12/29/2020 5:30 AM CDT) SODIUM 137 136 - 145 mmol/L 12/29/2020 6:31 AM [employer] SERVICES - [facility] POTASSIUM 3.5 3.5 - 5.0 mmol/L 12/29/2020 6:31 AM [facility] [employer] SERVICES - . [facility] CHLORIDE 104 98 - 107 mmol/L 12/29/2020 6:31 AM [employer] SERVICES - . [facility] CO2 21(L) 22 - 29 mmol/L 12/29/2020 6:31 AM [employer] SERVICES - [facility] CALCIUM 9.3 8.6 - 10.2 mg/dL 12/29/2020 6:31 AM [employer] [facility] Comment:Significant change f rom prior result, correlate clinically and redraw if necessary. BUN 4(L) 6 - 20 mg/dL 12/29/2020 6:31 AM [employer] SERVICES [facility]. [facility] CREATININE 0.43(L) 0.51 - 0.95 mg/dL 12/29/2020 6:31 AM [employer] SERVICES [facility] GLUCOSE 116(H) 74 - 99 mg/dL 12/29/2020 6:31 AM [employer] [facility] GFR >60 mL/min/1.7 3 sq meter 12/29/2020 6:31 AM [employer] [facility] Comment: eGFR has not been validated for [...] result. GFR, >60 mL/min/1.7 3 sq meter 12/29/2020 6:31 AM [employer] LABORATORY SERVICES [facility] ANION GAP 12 8 - 16 mmol/L 12/29/2020 6:31 AM [employer] SERVICES [facility] Blood Venipuncture / Unknown 12/29/2020 5:30 AM CDT 12/29/2020 5:49 AM CDT Manisha Cleveland MD CHEMISTRY ORDERABLE S Performing Organization Address [facility]/State/ZIP Co de Phone Number [facility] CLIA# [id number] [address] [place] [address] * (ABNORMAL) POC GLUCOSE (12/28/2020 9:26 PM CDT) GLUCOSE POC 169(H) 74 - 99 mg/dL 12/28/2020 9:26 PM CDT [employer] LABORATORY SERVICES - [facility] CREDIT ASSOCIATE NAME POC JEFFRY CARO 12/28/2020 9:26 PM CDT [facility] - [facility] Blood, whole 12/28/2020 9:26 PM CDT 12/28/2020 9:34 PM CDT Manisha Cleveland MD POINT OF CARE TESTI NG Performing Organization Address [facility]/ZIP Co de Phone Number [facility] [id number] [address] [place] [address] * (ABNORMAL) POC GLUCOSE (12/28/2020 5:42 PM CDT) GLUCOSE POC 149(H) 74 - 99 mg/dL 12/28/2020 5:42 PM CDT [facility] - [facility] COMMENT, GLU POC Notified RN/MD 12/28/2020 5:42 PM CDT [facility] - [facility] CREDIT ASSOCIATE NAME POC VITAKAYLYNLIGIA 12/28/2020 5:42 PM CDT [facility] - [facility] Blood, whole 12/28/2020 5:42 PM CDT 12/28/2020 5:52 PM CDT Manisha Cleveland MD POINT OF CARE TESTI NG [facility] [id number] [address] [place] [address] * (ABNORMAL) POC GLUCOSE (12/28/2020 1:01 PM CDT) GLUCOSE POC 148(H) 74 - 99 mg/dL 12/28/2020 1:01 PM CDT [facility] SERVICES - [facility] CREDIT ASSOCIATE NAME POC INGRIS DYSON 12/28/2020 1:01 PM CDT [facility] SERVICES [facility] Blood, whole 12/28/2020 1:01 PM CDT 12/28/2020 1:16 PM CDT Manisha Cleveland MD POINT OF CARE TESTI LUCIANO Performing Organization Address [facility]/ZIP Co de Phone Number [facility] SERVICES [facility] CLIA# [id number] [address] [place] [address] * (ABNORMAL) POC GLUCOSE (12/28/2020 11:28 AM CDT) GLUCOSE POC 180(H) 74 - 99 mg/dL 12/28/2020 11:28 AM CDT [facility] SERVICES [facility] COMMENT, GLU POC Notified RN/MD 12/28/2020 11:28 AM CDT [facility] SERVICES - [facility] CREDIT ASSOCIATE NAME POC LIGIA EMERY 12/28/2020 11:28 AM CDT [facility] SERVICES [facility] Blood, whole 12/28/2020 11:2 8 AM CDT 12/28/2020 11:40 AM CDT Manisha Cleveland MD POINT OF CARE TESTI NG [facility] CLIA# [id number] [address] [place] [address] * (ABNORMAL) POC GLUCOSE (12/28/2020 10:46 AM CDT) GLUCOSE POC 136(H) 74 - 99 mg/dL 12/28/2020 10:46 AM CDT [facility] SERVICES - [facility] CREDIT ASSOCIATE NAME POC INGRIS DYSON 12/28/2020 10:46 AM CDT [employer] LABORATORY SERVICES - [facility] Blood, whole 12/28/2020 10:4 6 AM CDT 12/28/2020 10:53 AM CDT Manisha Cleveland MD POINT OF CARE TESTI NG Performing Organization Address [facility]/ZIP Co de Phone Number [facility] SERVICES [facility] CLIA# [id number] [address] [place] [address] * (ABNORMAL) POC GLUCOSE (12/28/2020 9:37 AM CDT) GLUCOSE POC 127(H) 74 - 99 mg/dL 12/28/2020 9:37 AM CDT [employer] LABORATORY SERVICES - [facility] COMMENT, GLU POC Notified RN/MD 12/28/2020 9:37 AM CDT [employer] LABORATORY SERVICES - [facility] CREDIT ASSOCIATE NAME POC LIGIA EMERY 12/28/2020 9:37 AM CDT [facility] - [facility] Blood, whole 12/28/2020 9:37 AM CDT 12/28/2020 9:45 AM CDT Manisha Cleveland MD POINT OF CARE TESTI NG [facility]ATORY SERVICES [facility] CLIA# [id number] [address] [place] [address] * (ABNORMAL) POC GLUCOSE (12/28/2020 8:22 AM CDT) GLUCOSE POC 130(H) 74 - 99 mg/dL 12/28/2020 8:22 AM CDT [employer] LABORATORY SERVICES - [facility] CREDIT ASSOCIATE NAME POC INGRIS DYSON 12/28/2020 8:22 AM CDT [employer] [facility]AT[facility] SERVICES [facility] Blood, whole 12/28/2020 8:22 AM CDT 12/28/2020 8:40 AM CDT Manisha Cleveland MD POINT OF CARE TESTI NG [facility] CLIA# [id number] [address] [place] [address] * (ABNORMAL) POC GLUCOSE (12/28/2020 6:59 AM CDT) GLUCOSE POC 125(H) 74 - 99 mg/dL 12/28/2020 6:59 AM CDT [employer] LABORATORY SERVICES [facility] CREDIT ASSOCIATE NAME JEFFRY ZAPATA 12/28/2020 6:59 AM CDT [employer] [facility]AT[facility] SERVICES [facility] Blood, whole 12/28/2020 6:59 AM CDT 12/28/2020 7:07 AM CDT Manisha Cleveland MD POINT OF CARE TESTI NG Performing Organization Address City/[facility]/ZIP Co de Phone Number [facility] [employer] [facility] CLIA# [id number] [address] [place] [address] * (ABNORMAL) POC GLUCOSE (12/28/2020 5:40 AM CDT) GLUCOSE POC 117(H) 74 - 99 mg/dL 12/28/2020 5:40 AM CDT [employer] LABORATORY SERVICES [facility] CREDIT ASSOCIATE NAME POC JEFFRY CARO 12/28/2020 5:40 AM CDT [employer] [facility] SERVICES [facility] Blood, whole 12/28/2020 5:40 AM CDT 12/28/2020 5:50 AM CDT Manisha Cleveland MD POINT OF CARE TESTI NG [facility] CLIA# [id number] [address] [place] [address] * (ABNORMAL) POC GLUCOSE (12/28/2020 4:43 AM CDT) GLUCOSE POC 119(H) 74 - 99 mg/dL 12/28/2020 4:43 AM CDT [facility] SERVICES - [facility] COMMENT, GLU POC Notified RN/MD 12/28/2020 4:43 AM CDT [facility] SERVICES - [facility] CREDIT ASSOCIATE NAME POC IVETT ATBOR 12/28/2020 4:43 AM CDT [facility] SERVICES - [facility] Blood, whole 12/28/2020 4:43 AM CDT 12/28/2020 4:50 AM CDT Mnaisha Cleveland MD POINT OF CARE TESTI NG Performing Organization Address City/[facility]/ZIP Co de Phone Number [facility]# [id number] [address] [place] [address] * (ABNORMAL) POC GLUCOSE (12/28/2020 3:21 AM CDT) [facility] GLUCOSE POC 120(H) 74 - 99 mg/dL 12/28/2020 3:21 AM CDT [facility]ORY SERVICES - [facility] CREDIT ASSOCIATE NAME POC JEFFRY CARO 12/28/2020 3:21 AM CDT [facility] Blood, whole 12/28/2020 3:21 AM CDT 12/28/2020 4:57 AM CDT Manisha Cleveland MD POINT OF CARE TESTI NG [facility] [id number] [address] [place] [address] * (ABNORMAL) CBC WITH DIFFERENTIAL (12/28/2020 3:17 AM CDT) WBC 7.0 4.0 - 9.8 K/uL 12/28/2020 4:01 AM CDT [facility] - [facility] RBC 3.80(L) 3.90 - 4.90 M/uL 12/28/2020 4:01 AM CDT [facility] - [facility] HEMOGLOBIN 11.3(L) 11.8 - 14.8 g/dL 12/28/2020 4:01 AM CDT [facility] - [facility] HEMATOCRIT 34.8(L) 35.5 - 44.0 % 12/28/2020 4:01 AM CDT [facility] - [facility] MCV 91.4 82.0 - 99.0 fL 12/28/2020 4:01 AM CDT [facility] - [facility] MCH 29.7 27.2 - 32.6 pg 12/28/2020 4:01 AM CDT [facility] - [facility] MCHC 32.5 31.5 - 35.5 g/dL 12/28/2020 4:01 AM [employer] [facility] - [facility] RDW 15.3(H) 11.5 - 14.5 % 12/28/2020 4:01 AM CDT [facility] - [facility] RDW-STDEV 51.8(H) 37.1 - 48.7 fL 12/28/2020 4:01 AM CDT [facility] - [facility] PLATELETS 239 140 - 350 K/uL 12/28/2020 4:01 AM [facility] [facility] - [facility] MPV 8.8(L) 9.3 - 12.4 fL 12/28/2020 4:01 AM CDT [facility] - [facility] NEUTROPHILS 70 % 12/28/2020 4:01 AM CDT [facility] - [facility] LYMPHOCYTES 25 % 12/28/2020 4:01 AM CDT [facility] MONOCYTES 4 % 12/28/2020 4:01 AM CDT [facility] EOSINOPHILS 1 % 12/28/2020 4:01 AM CDT [facility] - [facility] BASOPHILS 0 % 12/28/2020 4:01 AM CDT [facility] - [facility] IMMATURE GRANULOCYTES 1 % 12/28/2020 4:01 AM CDT [facility] Comment:IG (Immature Granulo cyte) count includes Metamyelocytes, Myelocytes, and Promyelocytes NEUTROPHIL ABSOLUTE 4.84 1.90 - 7.00 K/uL 12/28/2020 4:01 AM CDT [facility] LYMPHOCYTE ABSOLUTE 1.70 0.70 - 4.50 K/uL 12/28/2020 4:01 AM CDT [facility] MONOCYTE ABSOLUTE 0.29 0.10 - 1.30 K/uL 12/28/2020 4:01 AM CDT [facility] - . [facility] EOSINOPHIL ABSOLUTE 0.05 0.00 - 0.70 K/uL 12/28/2020 4:01 AM CDT [facility] LABORATORY SERVICES [facility]. [facility] BASOPHILS ABSOLUTE 0.02 0.00 - 0.20 K/uL 12/28/2020 4:01 AM CDT [facility] - [facility] IMMATURE GRANULOCYTES ABSOLUTE 0.05(H) 0.00 - 0.03 K/uL 12/28/2020 4:01 AM CDT [facility] [employer] [facility] Blood Venipuncture / Unknown 12/28/2020 3:17 AM CDT 12/28/2020 3:27 AM CDT Manisha Cleveland MD HEMATOLOGY ORDERABL ES [facility] [facility]# [id number] [address] [place] [address] [facility] [place] [address] * (ABNORMAL) TRIGLYCERIDE (12/28/2020 3:17 AM CDT) TRIGLYCERIDE 986(H) <150 mg/dL 12/28/2020 4:21 AM CDT [facility] Blood Venipuncture / Unknown 12/28/2020 3:17 AM CDT 12/28/2020 3:27 AM CDT Narrative [facility] - 12/28/2020 4:21 AM CDT TRIGLYCERIDES ? mg/dL Normal ?< 150 Borderline High ?150 - 199 High ? 200 - 499 Very High ? >= 500 Based on AHA/NCEP Guidelines. Manisha Cleveland MD CHEMISTRY ORDERABLE S [facility] LABORATORY SERVICES [facility] CLIA# [id number] [address] [facility] [address] * (ABNORMAL) BASIC METABOLIC PANEL (12/28/2020 3:17 AM CDT) SODIUM 137 136 - 145 mmol/L 12/28/2020 4:05 AM [facility] [employer] LABORATORY SERVICES - . [place] POTASSIUM 3.5 3.5 - 5.0 mmol/L 12/28/2020 4:05 AM [facility] [employer] [facility] . [place] CHLORIDE 109(H) 98 - 107 mmol/L 12/28/2020 4:05 AM [facility] [employer]. [place] CO2 19(L) 22 - 29 mmol/L 12/28/2020 4:05 AM [facility] [place] CALCIUM 7.9(L) 8.6 - 10.2 mg/dL 12/28/2020 4:05 AM [facility] LABORATORY SERVICES - . [place] BUN 3(L) 6 - 20 mg/dL 12/28/2020 4:05 AM [facility] [place] [facility]. [place] CREATININE 0.40(L) 0.51 - 0.95 mg/dL 12/28/2020 4:05 AM [facility] [employer] [facility] [place] GLUCOSE 119(H) 74 - 99 mg/dL 12/28/2020 4:05 AM [facility] [employer] [facility] [place] GFR >60 mL/min/1.7 3 sq meter 12/28/2020 4:05 AM [facility] [employer] LABORATORY SERVICES - . [place] Comment: eGFR [...] result. GFR, >60 mL/min/1.7 3 sq meter 12/28/2020 4:05 AM CDT [facility] LABORATORY SERVICES [facility] ANION GAP 9 8 - 16 mmol/L 12/28/2020 4:05 AM CDT [facility]ORATORY SERVICES [facility] Blood Venipuncture / Unknown 12/28/2020 3:17 AM CDT 12/28/2020 3:27 AM CDT Manisha Cleveland MD CHEMISTRY ORDERABLE S Performing Organization Address City/[facility]/ZIP Co de Phone Number [facility]# [id number] [address] [place] [address] * (ABNORMAL) POC GLUCOSE (12/28/2020 2:11 AM CDT) GLUCOSE POC 116(H) 74 - 99 mg/dL 12/28/2020 2:11 AM CDT [facility] LABORATORY SERVICES [facility] CREDIT ASSOCIATE NAME POC JEFFRY CARO 12/28/2020 2:11 AM CDT [facility] Blood, whole 12/28/2020 2:11 AM CDT 12/28/2020 2:20 AM CDT Manisha Cleveland MD POINT OF CARE TESTI NG Performing Organization Address City/[facility]/ZIP Co de Phone Number [facility]# [id number] [address] [place] [place] [address] * POC GLUCOSE (12/28/2020 12:56 AM CDT) GLUCOSE POC 97 74 - 99 mg/dL 12/28/2020 12:56 AM CDT [facility] CREDIT ASSOCIATE NAME JEFFRY ZAPATA 12/28/2020 12:56 AM CDT [employer] LABORATORY SERVICES [facility] Blood, whole 12/28/2020 12:5 6 AM CDT 12/28/2020 1:07 AM CDT Manisha Cleveland MD POINT OF CARE TESTI NG Performing Organization Address City/[facility]/ZIP Co de Phone Number [facility]# [id number] [address] [place] [address] * (ABNORMAL) POC GLUCOSE (12/28/2020 12:04 AM CDT) GLUCOSE POC 108(H) 74 - 99 mg/dL 12/28/2020 12:04 AM CDT [facility] CREDIT ASSOCIATE NAME JEFFRY ZAPATA 12/28/2020 12:04 AM CDT [facility] Blood, whole 12/28/2020 12:0 4 AM CDT 12/28/2020 12:14 AM CDT Manisha Cleveland MD POINT OF CARE TESTI NG Performing Organization Address City/[facility]/ZIP Co de Phone Number [facility] [employer] [facility]# [id number] [address] [place] [address] * POC GLUCOSE (12/27/2020 11:02 PM CDT) GLUCOSE POC 85 74 - 99 mg/dL 12/27/2020 11:02 PM CDT [employer] LABORATORY SERVICES [facility] CREDIT ASSOCIATE NAME JEFFRY ZAPATA 12/27/2020 11:02 PM CDT [facility] Blood, whole 12/27/2020 11:0 2 PM CDT 12/27/2020 11:18 PM CDT Manisha Cleveland MD POINT OF CARE TESTI NG [facility]# [id number] [address] [place] [address] * POC GLUCOSE (12/27/2020 10:03 PM CDT) GLUCOSE POC 95 74 - 99 mg/dL 12/27/2020 10:03 PM CDT [facility] LABORATORY SERVICES [facility] CREDIT ASSOCIATE NAME JEFFRY ZAPATA 12/27/2020 10:03 PM CDT [facility] LABORATORY SERVICES [facility] Blood, whole 12/27/2020 10:0 3 PM CDT 12/27/2020 10:14 PM CDT Manisha Cleveland MD POINT OF CARE TESTI NG Performing Organization Address [facility]/ZIP Co de Phone Number [facility]# [id number] [address] [place] [address] * POC GLUCOSE (12/27/2020 9:05 PM CDT) GLUCOSE POC 85 74 - 99 mg/dL 12/27/2020 9:05 PM CDT [facility] CREDIT ASSOCIATE NAME JEFFRY ZAPATA 12/27/2020 9:05 PM CDT [facility]ORATORY SERVICES [facility] Blood, whole 12/27/2020 9:05 PM CDT 12/27/2020 9:17 PM CDT Manisha Cleveland MD POINT OF CARE TESTI NG Performing Organization Address City/[facility]/ZIP Co de Phone Number [facility]# [id number] [address] [place] [address] * POC GLUCOSE (12/27/2020 8:21 PM CDT) GLUCOSE POC 79 74 - 99 mg/dL 12/27/2020 8:21 PM CDT [facility] LABORATORY SERVICES [facility] CREDIT ASSOCIATE NAME POC JEFFRY CARO 12/27/2020 8:21 PM CDT [facility] LABORATORY SERVICES [facility] Blood, whole 12/27/2020 8:21 PM CDT 12/27/2020 8:34 PM CDT Manisha Cleveland MD POINT OF CARE TESTI NG [facility]# [id number] [address] [place] [address] * POC GLUCOSE (12/27/2020 7:31 PM CDT) GLUCOSE POC 74 74 - 99 mg/dL 12/27/2020 7:31 PM CDT [facility] LABORATORY SERVICES [facility] CREDIT ASSOCIATE NAME POC KATIA DIAZ 12/27/2020 7:31 PM CDT [facility] LABORATORY SERVICES [facility] Blood, whole 12/27/2020 7:31 PM CDT 12/27/2020 7:44 PM CDT Manisha Cleveland MD POINT OF CARE TESTI NG Performing Organization Address [facility]/ZIP Co de Phone Number [facility]# [id number] [address] [place] [address] * POC GLUCOSE (12/27/2020 6:01 PM CDT) GLUCOSE POC 75 74 - 99 mg/dL 12/27/2020 6:01 PM CDT [facility] LABORATORY SERVICES [facility] CREDIT ASSOCIATE NAME POC KATIA DIAZ 12/27/2020 6:01 PM CDT [facility] LABORATORY SERVICES [facility] Blood, whole 12/27/2020 6:01 PM CDT 12/27/2020 6:12 PM CDT Manisha Cleveland MD POINT OF CARE TESTI NG Performing Organization Address City/[facility]/ZIP Co de Phone Number [facility]# [id number] [address] [place] [address] * POC GLUCOSE (12/27/2020 4:48 PM CDT) [facility] GLUCOSE POC 85 74 - 99 mg/dL 12/27/2020 4:48 PM CDT [facility] CREDIT ASSOCIATE NAME POC JEFF BURROWS 12/27/2020 4:48 PM CDT [facility] Blood, whole 12/27/2020 4:48 PM CDT 12/27/2020 4:58 PM CDT Manisha Cleveland MD POINT OF CARE TESTI NG Performing Organization Address [facility]/ZIP Co de Phone Number [facility]# [id number] [address] [place] [address] * (ABNORMAL) TRIGLYCERIDE (12/27/2020 3:31 PM CDT) [facility] TRIGLYCERIDE 1,341(H) <150 mg/dL 12/27/2020 4:29 PM CDT [facility] Blood Venipuncture / Unknown 12/27/2020 3:31 PM CDT 12/27/2020 3:40 PM CDT Narrative [facility] - 12/27/2020 4:29 PM CDT TRIGLYCERIDES ? mg/dL Normal ?< 150 Borderline High ?150 - 199 High ? 200 - 499 Very High ? >= 500 Based on AHA/NCEP Guidelines. Manisha Cleveland MD CHEMISTRY ORDERABLE S Performing Organization Address City/[facility]/ZIP Co de Phone Number [facility]# [id number] [address] [place] [address] * POC GLUCOSE (12/27/2020 2:56 PM CDT) GLUCOSE POC 79 74 - 99 mg/dL 12/27/2020 2:56 PM CDT [facility] CREDIT ASSOCIATE NAME POC JEFF BURROWS 12/27/2020 2:56 PM CDT [facility] - [facility] Blood, whole 12/27/2020 2:56 PM CDT 12/27/2020 4:58 PM CDT Manisha Cleveland MD POINT OF CARE TESTI LUCIANO Performing Organization Address City/[facility]/ZIP Co de Phone Number [facility]# [id number] [address] [place] [address] * POC GLUCOSE (12/27/2020 1:30 PM CDT) GLUCOSE POC 79 74 - 99 mg/dL 12/27/2020 1:30 PM CDT [facility] LABORATORY SERVICES - [facility] CREDIT ASSOCIATE NAME POC KATIA DIAZ 12/27/2020 1:30 PM CDT [facility] Blood, whole 12/27/2020 1:30 PM CDT 12/27/2020 1:39 PM CDT Manisha Cleveland MD POINT OF CARE TESTChris WOLF [facility]# [id number] [address] [place] [address] * (ABNORMAL) POC GLUCOSE (12/27/2020 12:16 PM CDT) GLUCOSE POC 73(L) 74 - 99 mg/dL 12/27/2020 12:16 PM CDT [facility] - [facility] CREDIT ASSOCIATE NAME POC KATIA DIAZ 12/27/2020 12:16 PM CDT [facility] Blood, whole 12/27/2020 12:1 6 PM CDT 12/27/2020 12:35 PM CDT Manisha Cleveland MD POINT OF CARE TESTI NG [facility] CLIA# [id number] [address] [place] [address] * POC GLUCOSE (12/27/2020 10:56 AM CDT) GLUCOSE POC 85 74 - 99 mg/dL 12/27/2020 10:56 AM CDT [facility] CREDIT ASSOCIATE NAME POC JEFF BURROWS 12/27/2020 10:56 AM CDT [facility] Blood, whole 12/27/2020 10:5 6 AM CDT 12/27/2020 12:33 PM CDT Manisha Cleveland MD POINT OF CARE TESTI NG Performing Organization Address [facility]/ZIP Co de Phone Number [facility] LAB[facility]ATORY [facility] CLIA# [id number] [address] [place] [address] * POC GLUCOSE (12/27/2020 9:56 AM CDT) GLUCOSE POC 75 74 - 99 mg/dL 12/27/2020 9:56 AM CDT [facility] LABORATORY SERVICES [facility] CREDIT ASSOCIATE NAME POC KATIA DIAZ 12/27/2020 9:56 AM CDT [facility] Blood, whole 12/27/2020 9:56 AM CDT 12/27/2020 10:04 AM CDT Manisha Cleveland MD POINT OF CARE TESTI NG Performing Organization Address City/[facility]/ZIP Co de Phone Number [facility] LABORATORY [facility] CLIA# [id number] [address] [place] [address] * TSH REFLEXIVE (12/27/2020 9:05 AM CDT) TSH 1.59 0.27 - 4.20 uIU/mL 12/27/2020 3:55 PM T [facility] [employer] [facility] Blood Venipuncture / Unknown 12/27/2020 9:05 AM CDT 12/27/2020 9:12 AM CDT Manisha Cleveland MD CHEMISTRY ORDERABLE S [facility] [employer] [facility]# [id number] [address] [facility] [place] [address] * (ABNORMAL) BASIC METABOLIC PANEL (12/27/2020 9:05 AM CDT) Pathologist [facility] SODIUM 137 136 - 145 mmol/L 12/27/2020 10:17 AM [facility] [employer] [facility] POTASSIUM 3.4(L) 3.5 - 5.0 mmol/L 12/27/2020 10:17 AM [facility] [employer] [facility] Comment:Slightly hemolyzed. Result may be falsely elevated. CHLORIDE 104 98 - 107 mmol/L 12/27/2020 10:17 AM [facility] [employer] [facility] CO2 24 22 - 29 mmol/L 12/27/2020 10:17 AM [facility] [employer] [facility] CALCIUM 7.6(L) 8.6 - 10.2 mg/dL 12/27/2020 10:17 AM [facility] Comment:Significant change f rom prior result, correlate clinically and redraw if necessary. BUN 5(L) 6 - 20 mg/dL 12/27/2020 10:17 AM [facility] [employer] [facility] CREATININE 0.42(L) 0.51 - 0.95 mg/dL 12/27/2020 10:17 AM [facility] [employer] GLUCOSE 75 74 - 99 mg/dL 12/27/2020 10:17 AM [facility] LABORATORY [facility] GFR >60 mL/min/1.7 3 sq meter 12/27/2020 10:17 AM CDT [employer] [facility] Comment: eGFR has not been validated for [...] result. GFR, >60 mL/min/1.7 3 sq meter 12/27/2020 10:17 AM CDT [facility] ANION GAP 9 8 - 16 mmol/L 12/27/2020 10:17 AM CDT [facility] [place] [facility] Blood Venipuncture / Unknown 12/27/2020 9:05 AM CDT 12/27/2020 9:12 AM CDT Araceli Santo MD CHEMISTRY ORDERABL ES [facility] [employer] [facility]# [id number] [address] [facility] [place] [address] * TROPONIN 6 HR, 5TH GEN (12/27/2020 9:05 AM CDT) TROPONIN T, 6 HR 5TH GEN <6 <=10 ng/L 12/27/2020 10:09 AM CDT [facility] [place] [facility] Blood Venipuncture / Unknown 12/27/2020 9:05 AM CDT 12/27/2020 9:12 AM CDT Narrative [facility] - 12/27/2020 10:09 AM CDT Troponin Undetectable Unable to calculate delta. Delay in collection of timed specimen beyond recommended collection interval. Results must be interpreted in clinical context. Last Olsen DO CHEMISTRY ORDERABLE S [facility] [id number] [address] [place] [address] * POC GLUCOSE (12/27/2020 8:31 AM CDT) GLUCOSE POC 78 74 - 99 mg/dL 12/27/2020 8:31 AM CDT [facility] LABORATORY SERVICES [facility] CREDIT ASSOCIATE NAME POC JEFF BURROWS 12/27/2020 8:31 AM CDT [facility] LABORATORY SERVICES [facility] Blood, whole 12/27/2020 8:31 AM CDT 12/27/2020 9:24 AM CDT Manisha Cleveland MD POINT OF CARE TESTI NG Performing Organization Address City/[facility]/ZIP Co de Phone Number [facility] [id number] [address] [place] [address] * POC GLUCOSE (12/27/2020 7:27 AM CDT) GLUCOSE POC 74 74 - 99 mg/dL 12/27/2020 7:27 AM CDT [facility] LABORATORY SERVICES [facility] COMMENT, GLU POC Notified RN/MD 12/27/2020 7:27 AM CDT [facility] LABORATORY SERVICES [facility] COMMENT 2, GLU POC Repeated Glucose 12/27/2020 7:27 AM CDT [facility] LABORATORY SERVICES [facility] CREDIT ASSOCIATE NAME POC AMINA FLOOD 12/27/2020 7:27 AM CDT [facility] Blood, whole 12/27/2020 7:27 AM CDT 12/27/2020 7:42 AM CDT Manisha Cleveland MD POINT OF CARE TESTI NG [facility] [id number] [address] [place] [address] * POC GLUCOSE (12/27/2020 6:00 AM CDT) GLUCOSE POC 91 74 - 99 mg/dL 12/27/2020 6:00 AM CDT [facility] - [facility] CREDIT ASSOCIATE NAME KENIA LYON 12/27/2020 6:00 AM CDT [facility] Blood, whole 12/27/2020 6:00 AM CDT 12/27/2020 6:10 AM CDT Araceli Snato MD POINT OF CARE TEST ING [facility] [id number] [address] [place] [address] * (ABNORMAL) POC GLUCOSE (12/27/2020 5:34 AM CDT) GLUCOSE POC 73(L) 74 - 99 mg/dL 12/27/2020 5:34 AM CDT [facility] LABORATORY SERVICES - [facility] CREDIT ASSOCIATE NAME KENIA LYON 12/27/2020 5:34 AM CDT [facility] LABORATORY SERVICES [facility] Blood, whole 12/27/2020 5:34 AM CDT 12/27/2020 5:41 AM CDT Araceli Santo MD POINT OF CARE TEST ING [facility] LABORATORY [facility] CLIA# [id number] [address] [place] [address] * POC GLUCOSE (12/27/2020 5:07 AM CDT) GLUCOSE POC 81 74 - 99 mg/dL 12/27/2020 5:07 AM CDT [facility] - [facility] CREDIT ASSOCIATE NAME AMINA LOPEZ 12/27/2020 5:07 AM CDT [facility] - [facility] Blood, whole 12/27/2020 5:07 AM CDT 12/27/2020 5:22 AM CDT Araceli Santo MD POINT OF CARE TEST ING Performing Organization Address City/[facility]/ZIP Co de Phone Number [facility]# [id number] [address] [place] [address] * LACTIC ACID (12/27/2020 4:20 AM CDT) LACTIC ACID 0.7 <=2.0 mmol/L 12/27/2020 4:49 AM CDT [facility] Blood Venipuncture / Unknown 12/27/2020 4:20 AM CDT 12/27/2020 4:28 AM CDT Araceli Santo MD CHEMISTRY ORDERABL ES Performing Organization Address [facility] Co de Phone Number [facility] [employer] [facility]# [id number] [address] [place] [address] * (ABNORMAL) POC GLUCOSE (12/27/2020 4:02 AM CDT) GLUCOSE POC 122(H) 74 - 99 mg/dL 12/27/2020 4:02 AM CDT [facility] COMMENT, GLU POC Notified RN/MD 12/27/2020 4:02 AM CDT [facility] COMMENT 2, GLU POC Repeated Glucose 12/27/2020 4:02 AM CDT [facility] CREDIT ASSOCIATE NAME POC AMINA FLOOD 12/27/2020 4:02 AM CDT [facility] Blood, whole 12/27/2020 4:02 AM CDT 12/27/2020 4:27 AM CDT Araceli Santo MD POINT OF CARE TEST ING Performing Organization Address [facility]/ZIP Co de Phone Number [facility] [employer] [facility]# [id number] [address] [place] [address] * (ABNORMAL) POC GLUCOSE (12/27/2020 3:32 AM CDT) [facility] GLUCOSE POC 62(L) 74 - 99 mg/dL 12/27/2020 3:32 AM CDT [employer] LABORATORY SERVICES - [facility] COMMENT, GLU POC Notified RN/MD 12/27/2020 3:32 AM CDT [employer] LABORATORY SERVICES - [facility] COMMENT 2, GLU POC Repeated Glucose 12/27/2020 3:32 AM CDT [employer] LABORATORY SERVICES - [facility] CREDIT ASSOCIATE NAME POC KENIA QUIROZ 12/27/2020 3:32 AM CDT [employer] LABORATORY SERVICES [facility] Blood, whole 12/27/2020 3:32 AM CDT 12/27/2020 3:54 AM CDT Araceli Santo MD POINT OF CARE TEST ING [facility] [employer] [facility]# [id number] [address] [place] [address] * (ABNORMAL) CBC WITH DIFFERENTIAL (12/27/2020 3:05 AM CDT) [facility] WBC 12.9(H) 4.0 - 9.8 K/uL 12/27/2020 3:26 AM CDT [facility] LABORATORY SERVICES [facility] RBC 4.00 3.90 - 4.90 M/uL 12/27/2020 3:26 AM CDT [employer] LABORATORY SERVICES [facility] HEMOGLOBIN 12.4 11.8 - 14.8 g/dL 12/27/2020 3:26 AM CDT [employer] LABORATORY SERVICES [facility] HEMATOCRIT 35.0(L) 35.5 - 44.0 % 12/27/2020 3:26 AM CDT [employer] LABORATORY SERVICES [facility] MCV 87.5 82.0 - 99.0 fL 12/27/2020 3:26 AM CDT [employer] LABORATORY SERVICES [facility] MCH 31.0 27.2 - 32.6 pg 12/27/2020 3:26 AM CDT [facility] - . [facility] MCHC 35.4 31.5 - 35.5 g/dL 12/27/2020 3:26 AM CDT [facility] - [facility] RDW 15.1(H) 11.5 - 14.5 % 12/27/2020 3:26 AM CDT [facility] - . [facility] RDW-STDEV 48.3 37.1 - 48.7 fL 12/27/2020 3:26 AM CDT [facility] - [facility] PLATELETS 365(H) 140 - 350 K/uL 12/27/2020 3:26 AM CDT [facility] - . [facility] MPV 9.9 9.3 - 12.4 fL 12/27/2020 3:26 AM CDT [facility] - [facility] NEUTROPHILS 72 % 12/27/2020 3:26 AM CDT [facility] - [facility] LYMPHOCYTES 22 % 12/27/2020 3:26 AM CDT [facility] MONOCYTES 4 % 12/27/2020 3:26 AM CDT [facility] - [facility] EOSINOPHILS 1 % 12/27/2020 3:26 AM CDT [facility] - [facility] BASOPHILS 0 % 12/27/2020 3:26 AM CDT [facility] - . [facility] IMMATURE GRANULOCYTES 1 % 12/27/2020 3:26 AM CDT [facility] - . [facility] Comment:IG (Immature Granulo cyte) count includes Metamyelocytes, Myelocytes, and Promyelocytes NEUTROPHIL ABSOLUTE 9.30(H) 1.90 - 7.00 K/uL 12/27/2020 3:26 AM CDT [facility] - [facility] LYMPHOCYTE ABSOLUTE 2.80 0.70 - 4.50 K/uL 12/27/2020 3:26 AM CDT [facility] - [facility] MONOCYTE ABSOLUTE 0.54 0.10 - 1.30 K/uL 12/27/2020 3:26 AM CDT [facility] - [facility] EOSINOPHIL ABSOLUTE 0.12 0.00 - 0.70 K/uL 12/27/2020 3:26 AM CDT [facility] - [facility] BASOPHILS ABSOLUTE 0.05 0.00 - 0.20 K/uL 12/27/2020 3:26 AM CDT [facility] - [facility] IMMATURE GRANULOCYTES ABSOLUTE 0.09(H) 0.00 - 0.03 K/uL 12/27/2020 3:26 AM CDT [facility] - [facility] Blood Venipuncture / Unknown 12/27/2020 3:05 AM CDT 12/27/2020 3:13 AM CDT Araceli Santo MD HEMATOLOGY ORDERAB LES Performing Organization Address City/[facility]/ZIP Co de Phone Number [facility]# [id number] [address] [place] [address] * POC GLUCOSE (12/27/2020 2:35 AM CDT) GLUCOSE POC 86 74 - 99 mg/dL 12/27/2020 2:35 AM CDT [facility] CREDIT ASSOCIATE NAME AMINA LOPEZ 12/27/2020 2:35 AM CDT [facility] - [facility] Blood, whole 12/27/2020 2:35 AM CDT 12/27/2020 2:48 AM CDT Araceli Santo MD POINT OF CARE TEST ING Performing Organization Address [facility]/ZIP Co de Phone Number [facility] [facility]# [id number] [address] [place] [address] * (ABNORMAL) POC GLUCOSE (12/27/2020 12:42 AM CDT) GLUCOSE POC 102(H) 74 - 99 mg/dL 12/27/2020 12:42 AM CDT [facility] - [facility] CREDIT ASSOCIATE NAME AMINA LOPEZ 12/27/2020 12:42 AM CDT [facility] - [facility] Blood, whole 12/27/2020 12:4 2 AM CDT 12/27/2020 2:00 AM CDT Araceli Santo MD POINT OF CARE TEST ING Performing Organization Address [facility] Co de Phone Number [facility]# [id number] [address] [place] [address] * 2019 NOVEL CORONAVIRUS (COVID-19) PCR DETECTION (12/26/2020 11:09 PM CDT) [facility] COVID-19 PCR NOT DETECTED Not Detected 12/28/19 12:10 AM CDT [facility] 12/27/2020 12:10 AM CDT [facility] Upper Respiratory ENTIRE NASOPHARYNX / Unknown Collection / Unknown 12/26/2020 11:09 PM CDT 12/26/2020 11:13 PM CDT Narrative [facility] - 12/27/2020 12:10 AM CDT This test has been authorized by the FDA under an Emergency Use Authorization for use by authorized laboratories.?? This test has been validated in accordance with the FDA's guidance regarding Coronavirus Disease-2019 testing.?? Optimum specimen types and timing for peak viral levels during infection have not been determined.?? A negative RT-PCR result does not rule out infection with the 2019-Novel Coronavirus. Last Olsen DO MICROBIOLOGY - GENE RAL ORDERABLES Performing Organization Address [facility]/ZIP Co de Phone Number [facility]# [id number] [address] [place] [address] * (ABNORMAL) URINALYSIS WITH REFLEX MICROSCOPIC (12/26/2020 10:06 PM CDT) Pathologist [facility] COLOR UA Yellow Pale to Dark Yellow 12/26/2020 10:31 PM CDT [facility] CLARITY UA Clear Clear 12/26/2020 10:31 PM CDT [facility] SPECIFIC GRAVITY UA 1.025 1.003 - 1.035 12/26/2020 10:31 PM CDT [facility] - [facility] PH UA 5.0 5.0 - 8.0 12/26/2020 10:31 PM CDT [facility] - [facility] LEUKOCYTE ESTERASE UA Negative Negative 12/26/2020 10:31 PM CDT [facility] - [facility] NITRITE UA Negative Negative 12/26/2020 10:31 PM CDT [facility] - [facility] PROTEIN UA Negative Negative 12/26/2020 10:31 PM CDT [facility] - [facility] GLUCOSE UA 3+(A) Negative 12/26/2020 10:31 PM CDT [facility] - [facility] KETONES UA 1+(A) Negative 12/26/2020 10:31 PM CDT [facility] - [facility] UROBILINOGEN UA Normal <2.0 mg/dL 10:31 PM CDT [facility] - [facility] BILIRUBIN UA Negative Negative 12/26/2020 10:31 PM CDT [facility] - [facility] BLOOD UA Negative Negative 12/26/2020 10:31 PM CDT [facility] - [facility] Urine URINE SPECIMEN OBTAINED BY CLEAN CATCH PROCEDURE / Unknown Collection / Unknown 12/26/2020 10:06 PM CDT 12/26/2020 10:13 PM CDT Last Olsen DO URINE ORDERABLES [facility]# [id number] [address] [place] [address] * CT CHEST ABDOMEN PELVIS W CONT (12/26/2020 10:02 PM CDT) Anatomical Region Laterality Modality Chest Computed Tomogra phy 12/26/2020 10:0 3 PM CDT Impressions 12/26/2020 10:30 PM CDT IMPRESSION: ?? 1. ??Mild edema adjacent to the pancreatic tail, compatible with given history of acute pancreatitis. 2. Punctate nonobstructing right renal stone. 3. Clear lungs. [facility] Narrative 12/26/2020 10:[address] CHEST, ABDOMEN AND PELVIS WITH IV CONTRAST WITH REFORMATTED IMAGES ?? DATE: 12/26/2020 10:02 PM CLINICAL INFORMATION: Pancreatitis. Chest pain. COMPARISON: 07/10/2020 PROCEDURE: Axial images were obtained from the thoracic inlet through the upper abdomen ??following ??the administration of 120 mL intravenous contrast. Additional axial images were subsequently obtained from the lung bases through the ischial tuberosities. Oral contrast was not administered. Multiplanar reformatted images were reviewed. ??The examination was performed with the adjustment of mA according to the patient size and/or the use of Iterative 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 ?? DLP: 1324 mGy-cm FINDINGS: ?? CHEST - ?? LUNGS/AIRWAYS/PLEURA: Patent central airways. No pulmonary nodules. ?? HEART/VESSELS: Heart is normal. There is no pericardial effusion. Two central venous catheters terminate near the superior cavoatrial junction. Left aortic arch with normal branching. MEDIASTINUM AND VERONICA: No lymphadenopathy. ?? CHEST WALL AND LOWER NECK: Within normal limits. ?? BONES: Within normal limits. ?? ABDOMEN AND PELVIS - ?? LIVER: Within normal limits ?? GALLBLADDER: Within normal limits. ?? BILE DUCTS: Within normal limits. ?? PANCREAS: There is mild peripancreatic edema adjacent to the pancreatic tail. The pancreatic parenchyma is not enhancing. There is no well-defined peripancreatic fluid collection. SPLEEN: Within normal limits. ?? ADRENALS: Within normal limits. ?? KIDNEYS/URETERS: Cyst in the right lower pole. Normal parenchymal enhancement. The left renal pelvis is mildly dilated, unchanged. A punctate stone in the right upper pole. BLADDER: Within normal limits. ?? REPRODUCTIVE ORGANS: The uterus is absent. Both ovaries are normal in appearance. BOWEL: No small bowel obstruction or inflammation. PERITONEUM/RETROPERITONEUM: Trace free fluid in the pelvis. No free air. No lymphadenopathy. VESSELS: Within normal limits. ?? ABDOMINAL WALL: Within normal limits. ?? BONES: No concerning focal lesion. Procedure Note Lgiia Patel MD - 12/26/2020 CT CHEST, ABDOMEN AND PELVIS WITH IV CONTRAST WITH REFORMATTED IMAGES DATE: 12/26/2020 10:02 PM CLINICAL INFORMATION: Pancreatitis. Chest pain. COMPARISON: 07/10/2020 PROCEDURE: Axial images were obtained from the thoracic inlet through the upper abdomen following the administration of 120 mL intravenous contrast. Additional axial images were subsequently obtained from the lung bases through the ischial tuberosities. Oral contrast was not administered. Multiplanar reformatted images were reviewed. The examination was performed with the adjustment of mA according to the patient size and/or the use of Iterative 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 DLP: 1324 mGy-cm FINDINGS: CHEST - LUNGS/AIRWAYS/PLEURA: Patent central airways. No pulmonary nodules. HEART/VESSELS: Heart is normal. There is no pericardial effusion. Two central venous catheters terminate near the superior cavoatrial junction. Left aortic arch with normal branching. MEDIASTINUM AND VERONICA: No lymphadenopathy. CHEST WALL AND LOWER NECK: Within normal limits. BONES: Within normal limits. ABDOMEN AND PELVIS - LIVER: Within normal limits GALLBLADDER: Within normal limits. BILE DUCTS: Within normal limits. PANCREAS: There is mild peripancreatic edema adjacent to the pancreatic tail. The pancreatic parenchyma is not enhancing. There is no well-defined peripancreatic fluid collection. SPLEEN: Within normal limits. ADRENALS: Within normal limits. KIDNEYS/URETERS: Cyst in the right lower pole. Normal parenchymal enhancement. The left renal pelvis is mildly dilated, unchanged. A punctate stone in the right upper pole. BLADDER: Within normal limits. REPRODUCTIVE ORGANS: The uterus is absent. Both ovaries are normal in appearance. BOWEL: No small bowel obstruction or inflammation. PERITONEUM/RETROPERITONEUM: Trace free fluid in the pelvis. No free air. No lymphadenopathy. VESSELS: Within normal limits. ABDOMINAL WALL: Within normal limits. BONES: No concerning focal lesion. IMPRESSION: 1. Mild edema adjacent to the pancreatic tail, compatible with given history of acute pancreatitis. 2. Punctate nonobstructing right renal stone. 3. Clear lungs. DICTATION LOCATION: Location 1 - [facility] Last Olsen DO CT ORDERABLES * EKG 12-LEAD (12/26/2020 9:42 PM CDT) 12/26/2020 9:42 PM CDT Narrative INTERFACE SYSTEM - 12/27/2020 7:59 AM CDT ? Stationary ECG Study ? [facility] ? Test Date: ?12/26/2020 9:42 PM Pat Name: ? CASANDRA FEDDER ?Department: ?? 37 ?Room: ? 490F Gender: ? 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 Requested By: LAST MARSHALL Order Number: [id number] ?Reading MD: ?? Gigi Maza ? Measurements Intervals ?[place] ? Rate: ? 107 ?P: ?63 TX: ? 155 ?QRS: ?60 QRSD: ? 86 ? T: ?0 QT: ? 338 ? QTc: ?451 ? Interpretive Statements ? Sinus tachycardia Left atrial enlargement Nonspecific ST segment and T wave abnormalities Electronically Signed On 12-27-2020 7:59:42 CDT by Gigi Maza Procedure Note Gigi Maza MD - 12/27/2020 Stationary ECG Study 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: win : 1975 Requested By: LAST MARSHALL Order Number: [id number] Reading MD: Gigi Maza Measurements Intervals [place] Rate: 107 P: 63 TX: 155 QRS: 60 QRSD: 86 T: 0 QT: 338 QTc: 451 Interpretive Statements Sinus tachycardia Left atrial enlargement Nonspecific ST segment and T wave abnormalities Electronically Signed On 12-27-2020 7:59:42 CDT by Gigi Maza Last Olsen DO ECG ORDERABLES INTERFACE SYSTEM Refer to clinic/hospital department * (ABNORMAL) KETONES/BETA HYDROXYBUTYRATE (12/26/2020 8:16 PM CDT) BETA HYDROXYBUTYRATE 1.6(H) <0.4 mmol/L 12/27/2020 12:34 AM CDT [facility] Comment:Cleared of chylomicr ons. Blood Venipuncture / Unknown 12/26/2020 8:16 PM CDT 12/26/2020 8:29 PM CDT Araceli Santo MD CHEMISTRY ORDERABL ES Performing Organization Address [facility] Co de Phone Number [facility] CLIA# [id number] [address] [address] * TROPONIN BASELINE, 5TH GEN (12/26/2020 8:16 PM CDT) TROPONIN T, BASELINE 5TH GEN <6 <=10 ng/L 12/26/2020 10:06 PM CDT [facility] Blood Venipuncture / Unknown 12/26/2020 8:16 PM CDT 12/26/2020 8:29 PM CDT Narrative [facility] - 12/26/2020 10:06 PM CDT Troponin Undetectable Last Olsen DO CHEMISTRY ORDERABLE S Performing Organization Address [facility]/ZIP Co de Phone Number [facility] CLIA# [id number] [address] [address] * (ABNORMAL) TRIGLYCERIDE (12/26/2020 8:16 PM CDT) TRIGLYCERIDE 3,537(H) <150 mg/dL 12/26/2020 10:08 PM CDT [facility] Blood Venipuncture / Unknown 12/26/2020 8:16 PM CDT 12/26/2020 8:29 PM CDT Narrative [facility] - 12/26/2020 10:08 PM CDT TRIGLYCERIDES ? mg/dL Normal ?< 150 Borderline High ?150 - 199 High ? 200 - 499 Very High ? >= 500 Based on AHA/NCEP Guidelines. Last Olsen DO CHEMISTRY ORDERABLE S Performing Organization Address City/[facility] Co de Phone Number [facility]# [id number] [address] [place] [address] * MANUAL DIFFERENTIAL (12/26/2020 8:16 PM CDT) [facility] PLATELET EST. Consistent w Count 12/26/2020 9:16 PM CDT [facility] RBC MORPHOLOGY Normal 12/26/2020 9:16 PM CDT [facility] Blood Venipuncture / Unknown 12/26/2020 8:16 PM CDT 12/26/2020 8:29 PM CDT Last Olsen DO HEMATOLOGY ORDERABL ES COM Performing Organization Address [facility] Co de Phone Number [facility]# [id number] [address] [place] [address] * (ABNORMAL) LIPASE (12/26/2020 8:16 PM CDT) [facility] LIPASE 62(H) 13 - 60 U/L 12/26/2020 10:07 PM CDT [facility] Blood Venipuncture / Unknown 12/26/2020 8:16 PM CDT 12/26/2020 8:29 PM CDT Last Olsen DO CHEMISTRY ORDERABLE S [facility] SERVICES - [facility]# [id number] [address] [place] [address] * (ABNORMAL) COMPREHENSIVE METABOLIC PANEL (12/26/2020 8:16 PM CDT) SODIUM 136 136 - 145 mmol/L 12/26/2020 10:24 PM CDT [facility] LABORATORY SERVICES - [facility] POTASSIUM 4.1 3.5 - 5.0 mmol/L 12/26/2020 10:24 PM CDT [facility]ATORY SERVICES - [facility] Comment:Slightly hemolyzed. Result may be falsely elevated. CHLORIDE 98 98 - 107 mmol/L 12/26/2020 10:24 PM CDT [facility]AT[facility] - . [facility] CO2 18(L) 22 - 29 mmol/L 12/26/2020 10:24 PM CDT [facility] LABORATORY SERVICES [facility] CALCIUM 9.7 8.6 - 10.2 mg/dL 12/26/2020 10:24 PM CDT [facility] - . [facility] BUN 7 6 - 20 mg/dL 12/26/2020 10:24 PM CDT [facility] SERVICES - . [facility] CREATININE 0.41(L) 0.51 - 0.95 mg/dL 12/26/2020 10:24 PM CDT [facility]ORY SERVICES - . [facility] GLUCOSE 98 74 - 99 mg/dL 12/26/2020 10:24 PM CDT [facility] LABORATORY SERVICES [facility] TOTAL PROTEIN 7.5 6.7 - 8.6 g/dL 12/26/2020 10:24 PM CDT [facility]ORATORY SERVICES - [facility] ALBUMIN 4.4 3.5 - 5.2 g/dL 12/26/2020 10:24 PM CDT [facility] - [facility] BILIRUBIN TOTAL 0.4 0.3 - 1.2 mg/dL 12/26/2020 10:24 PM CDT [facility] LABORATORY SERVICES - . [facility] ALKALINE PHOSPHATASE 91 35 - 104 U/L 12/26/2020 10:24 PM CDT [facility] - [facility] AST 17 <33 U/L 12/26/2020 10:24 PM CDT [facility] Comment:Hemolysis present. R esult may be falsely elevated. ALT 13 <34 U/L 12/26/2020 10:24 PM CDT [facility] GFR >60 mL/min/1.7 3 sq meter 12/26/2020 10:24 PM CDT [facility] Comment: eGFR has not been validated for [...] result. GFR, >60 mL/min/1.7 3 sq meter 12/26/2020 10:24 PM CDT [facility] ANION GAP 20(H) 8 - 16 mmol/L 12/26/2020 10:24 PM CDT [facility] Blood Venipuncture / Unknown 12/26/2020 8:16 PM CDT 12/26/2020 8:29 PM CDT Narrative [facility] - 12/26/2020 10:24 PM CDT Grossly lipemic. Samples containing indocyanine green cause interferences on Total and/or Direct Bilirubin and must not be measured. Last Olsen DO CHEMISTRY ORDERABLE S [facility]# [id number] [address] [id number] * (ABNORMAL) CBC WITH DIFFERENTIAL (12/26/2020 8:16 PM CDT) WBC 17.9(H) 4.0 - 9.8 K/uL 12/26/2020 9:13 PM CDT [facility] SERVICES - [facility] RBC 5.01(H) 3.90 - 4.90 M/uL 12/26/2020 9:13 PM CDT [facility] LABORATORY SERVICES - [facility] HEMOGLOBIN 15.0(H) 11.8 - 14.8 g/dL 12/26/2020 9:13 PM CDT [facility]ORATORY SERVICES - [facility] Comment:Results corrected fo r elevated lipids. HEMATOCRIT 44.0 35.5 - 44.0 % 12/26/2020 9:13 PM CDT [facility] LABORATORY SERVICES - [facility] MCV 87.8 82.0 - 99.0 fL 12/26/2020 9:13 PM CDT [facility] SERVICES - [facility] MCH 29.9 27.2 - 32.6 pg 12/26/2020 9:13 PM CDT [facility] SERVICES - [facility] MCHC 34.1 31.5 - 35.5 g/dL 12/26/2020 9:13 PM CDT [facility] SERVICES - [facility] RDW 14.3 11.5 - 14.5 % 12/26/2020 9:13 PM CDT [facility] SERVICES - [facility] RDW-STDEV 45.6 37.1 - 48.7 fL 12/26/2020 9:13 PM CDT [facility] SERVICES - [facility] PLATELETS 412(H) 140 - 350 K/uL 12/26/2020 9:13 PM CDT [facility] SERVICES - [facility] MPV 8.9(L) 9.3 - 12.4 fL 12/26/2020 9:13 PM CDT [facility] SERVICES - [facility] NEUTROPHILS 79 % 12/26/2020 9:13 PM CDT [facility] - . [facility] LYMPHOCYTES 15 % 12/26/2020 9:13 PM CDT [facility] - . [facility] MONOCYTES 4 % 12/26/2020 9:13 PM CDT [facility] - . [facility] EOSINOPHILS 1 % 12/26/2020 9:13 PM CDT [facility] - . [facility] BASOPHILS 0 % 12/26/2020 9:13 PM CDT [facility] LABORATORY SERVICES - . [facility] IMMATURE GRANULOCYTES 1 % 12/26/2020 9:13 PM CDT [facility]ORATORY SERVICES - . [facility] Comment:IG (Immature Granulo cyte) count includes Metamyelocytes, Myelocytes, and Promyelocytes NEUTROPHIL ABSOLUTE 14.17(H) 1.90 - 7.00 K/uL 12/26/2020 9:13 PM CDT [facility] SERVICES - . [facility] LYMPHOCYTE ABSOLUTE 2.67 0.70 - 4.50 K/uL 12/26/2020 9:13 PM CDT [facility] SERVICES - . [facility] MONOCYTE ABSOLUTE 0.76 0.10 - 1.30 K/uL 12/26/2020 9:13 PM CDT [facility] SERVICES - . [facility] EOSINOPHIL ABSOLUTE 0.14 0.00 - 0.70 K/uL 12/26/2020 9:13 PM CDT [facility] - [facility] BASOPHILS ABSOLUTE 0.08 0.00 - 0.20 K/uL 12/26/2020 9:13 PM CDT [facility] SERVICES - . [facility] IMMATURE GRANULOCYTES ABSOLUTE 0.11(H) 0.00 - 0.03 K/uL 12/26/2020 9:13 PM CDT [facility] SERVICES - [facility] Blood Venipuncture / Unknown 12/26/2020 8:16 PM CDT 12/26/2020 8:29 PM CDT Last Olsen DO HEMATOLOGY ORDERABL ES [facility]# [id number] [address] [place] [id number] documented in this encounter Visit Diagnoses Diagnosis Acute on chronic pancreatitis- Primary Epigastric abdominal pain Abdominal pain, epigastric Chronic pancreatitis, unspecified pancreatitis type Hypertriglyceridemia Pure hyperglyceridemia Moderate protein-calorie malnutrition Malnutrition of moderate degree Uncontrolled type 2 diabetes mellitus with hyperglycemia Other acute pancreatitis without infection or necrosis Acute on chronic pancreatitis Recurrent pancreatitis Chronic pancreatitis Acquired hypothyroidism Unspecified [...] gestational diabetes Metabolic syndrome Dysmetabolic Syndrome X Acquired hypothyroidism Unspecified hypothyroidism Depression with anxiety Dysthymic disorder GERD (gastroesophageal reflux disease) Esophageal reflux Chronic pancreatitis Acute pancreatitis documented in this encounter Administered Medications Inactive Administered Medications - up to 3 most recent administrations Medication Order MAR Action Action Date Dose Rate Site acetaminophen (TYLENOL) tablet 1,000 mg 1,000 mg, Oral, ONE TIME ONLY, 1 dose, On Sat12/26/20 at 2200, Stat Given 12/26/2020 10:02 PM CDT 1,000 mg acetaminophen (TYLENOL) tablet 650 mg 650 mg, Oral, EVERY 4 HOURS PRN, Starting on Sat12/27/20 at 1402, Until Sat01/02/21 at 1621, Pain, Routine Given 01/01/2021 5:36 PM CDT 650 mg Given 12/27/2020 8:00 PM CDT 650 mg Given 12/27/2020 2:08 PM CDT 650 mg ACETAMINOPHEN 500 MG TABLET (CABINET OVERRIDE) 1 dose, Starting on Sat12/26/20 at 2156, Until Sat12/26/20 at 2202, Trey Mobley R: cabinet override atorvastatin (LIPITOR) tablet 80 mg 80 mg, Oral, DAILY AT BEDTIME, First dose on Sat12/27/20 at 0100, Until Discontinued, Routine Given 01/01/2021 8:56 PM CDT 80 mg Given 12/31/2020 8:29 PM CDT 80 mg Given 12/30/2020 8:50 PM CDT 80 mg buPROPion HCL (WELLBUTRIN SR) 12 hour tablet 150 mg 150 mg, Oral, TWO TIMES DAILY, First dose on Sat12/27/20 at 0100, Until Discontinued, Routine, Previous Med: buPROPion HCL (WELLBUTRIN SR) 150 mg Sustained Release 12 hour tablet - Orig Sig - Take 1 Tablet (150 mg) by mouth 2 times daily. Given 01/02/2021 8:54 AM CDT 150 mg Given 01/01/2021 8:56 PM CDT 150 mg Given 01/01/2021 9:33 AM CDT 150 mg calcium GLUCONATE 2,000 mg in sodium chloride (iso-osmotic) 100 mL IVPB 2,000 mg, IV, INTRA-PROCEDURE ONCE, 1 dose, Starting on Sat12/28/20 at 1300, Until Sat12/28/20 at 1540, Routine New Bag 12/28/2020 2:40 PM CDT 2,000 mg 100 mL/hr citalopram (CeleXA) tablet 40 mg 40 mg, Oral, DAILY, First dose on Sat12/27/20 at 0900, Until Discontinued, Routine, Previous Med: citalopram (CeleXA) 40 mg tablet - Orig Sig - TAKE 1 TABLET BY MOUTH EVERY DAY Given 01/02/2021 8:53 AM CDT 40 mg Given 01/01/2021 9:33 AM CDT 40 mg Given 12/31/2020 8:07 AM CDT 40 mg dextrose 5% - sodium chloride 0.9% infusion IV, at 125 mL/hr, CONTINUOUS, Starting on Sat12/27/20 at 0030, Until Sat12/28/20 at 1503, Routine New Bag 12/28/2020 10:19 AM CDT 125 mL /hr New Bag 12/28/2020 2:21 AM CDT 125 mL/hr Bag Switched 12/27/2020 6:08 PM CDT 125 mL/hr dextrose 5% - sodium chloride 0.9% infusion IV, at 40 mL/hr, SEE ADMIN INSTRUCTIONS, Starting on Sat12/29/20 at 1038, Until Sat01/02/21 at 1621, Routine dextrose 5% - sodium chloride 0.9% infusion IV, at 125 mL/hr, CONTINUOUS, Starting on Sat12/29/20 at 1115, Until Sat12/30/20 at 1114, Routine Rate Verify 12/30/2020 11:00 AM CDT 125 mL/hr Rate Verify 12/30/2020 10:00 AM CDT 125 mL/hr Rate Verify 12/30/2020 9:00 AM CDT 125 mL/hr dextrose 5% - sodium chloride 0.9% infusion IV, at 125 mL/hr, CONTINUOUS, Starting on Sat12/30/20 at 1230, Until Sat12/31/20 at 1229, Routine Rate Verify 12/31/2020 12:07 PM CDT 125 mL/hr Rate Verify 12/31/2020 11:12 AM CDT 125 mL/hr Rate Verify 12/31/2020 10:00 AM CDT 125 mL/hr dextrose 5% - sodium chloride 0.9% infusion IV, at 75 mL/hr, CONTINUOUS, Starting on 12/31/20 at 1445, Until Sat01/01/21 at 1444, Routine Rate Verify 01/01/2021 1:00 PM CDT 75 mL/h r Rate Verify 01/01/2021 10:31 AM CDT 75 mL/hr Bag Switched 01/01/2021 8:34 AM CDT 75 mL/hr dextrose 5% - sodium chloride 0.9% infusion IV, at 75 mL/hr, CONTINUOUS, Starting on Sat01/01/21 at 1745, Until Sat01/02/21 at 0918, Routine Bag Switched 01/02/2021 12:41 AM CDT 75 mL/hr Restarted 01/01/2021 5:45 PM CDT 75 mL/hr dextrose 50% (D50) syringe 12.5 Gram 12.5 Gram, IV, SEE ADMIN INSTRUCTIONS, Starting on Sat12/27/20 at 0012, Until Sat01/02/21 at 1621, Routine dextrose 50% (D50) syringe 12.5 Gram 12.5 Gram, IV, SEE ADMIN INSTRUCTIONS, Starting on Sat12/27/20 at 0026, Until Sat12/28/20 at 1311, Routine Given 12/27/2020 3:40 AM CDT 12.5 Grams dextrose 50% (D50) syringe 25 Gram 25 Gram, IV, SEE ADMIN INSTRUCTIONS, Starting on Sat12/27/20 at 0012, Until Sat01/02/21 at 1621, Routine diphenhydrAMINE (BENADRYL) tablet 25 mg 25 mg, Oral, EVERY 6 HOURS PRN, Starting on 12/31/20 at 1759, Until Sat01/02/21 at 1621, Itching, Routine Given 01/01/2021 8:34 AM CDT 25 mg Given 12/31/2020 8:39 PM CDT 25 mg diphenhydrAMINE-zinc acetate (BENADRYL EXTRA STRENGTH) 2-0.1 % topical cream Topical, EVERY 4 HOURS PRN, Starting on 12/31/20 at 2142, Until Sat01/02/21 at 1621, Itching, Routine enoxaparin (LOVENOX) injection 40 mg 40 mg, subCUT, DAILY AT BEDTIME, First dose on Sat12/27/20 at 0030, Until Discontinued, Routine, Indication: Prophylaxis of VTE, Dose to be adjusted per facility protocol? Yes Given 01/01/2021 8:55 PM CDT 40 mg Abdominal Tissue Given 12/31/2020 8:30 PM CDT 40 mg Ab domen, Right Lower Quadrant Given 12/30/2020 8:50 PM CDT 40 mg Ab domen, Right Lower Quadrant fenofibrate (LOFIBRA) tablet 160 mg 160 mg, Oral, DAILY, First dose on Sat12/27/20 at 0900, Until Discontinued, Routine, Previous Med: fenofibrate (LOFIBRA) 160 mg Tablet - Orig Sig - TAKE 1 TABLET BY MOUTH EVERY DAY Patient taking differently: Take 160 mg by mouth daily. Given 01/02/2021 8:59 AM CDT 160 mg Given 01/01/2021 9:34 AM CDT 160 mg Given 12/31/2020 8:06 AM CDT 160 mg FENTANYL (PF) 50 MCG/ML INJECTION SOLUTION (CABINET OVERRIDE) 1 dose, Starting on Sat12/26/20 at 2250, Until Sat12/26/20 at 2252, Trey Mobley R: cabinet override fentaNYL PF (SUBLIMAZE) 50 mcg/mL injection 100 mcg 100 mcg, IV, ONE TIME ONLY, 1 dose, On Sat12/26/20 at 2300, Routine Given 12/26/2020 10:52 PM CDT 100 mcg Fish Oil-[place]-3 Fatty Acids 360-1,200 mg capsule 2 Capsule 2 Capsule, Oral, TWO TIMES DAILY WITH MEALS, First dose on Sat12/28/20 at 1700, Until Discontinued, Routine Given 01/02/2021 8:54 AM CDT 2 Capsules Given 01/01/2021 4:33 PM CDT 2 Capsules Given 01/01/2021 9:34 AM CDT 2 Capsules glucagon HCL 1 mg/mL injection 1 mg 1 mg, IM, SEE ADMIN INSTRUCTIONS, Starting on Katie 12/29/20 at 1038, Until Sat01/02/21 at 1621, Routine heparin, porcine (pf) 10 unit/mL IV syringe 20 Units 20 Units, IV, ONE TIME ONLY, 1 dose, On Sat12/28/20 at 1300, Routine, PLEASE TUBE TO STATION 516. Given 12/28/2020 1:00 PM CDT 20 Units heparin, porcine lock flush (pf) 100 unit/mL injection 500 Units 500 Units, IV, ONE TIME ONLY, 1 dose, On Sat12/28/20 at 1300, Routine, PLEASE TUBE TO STATION 516. Given 12/28/2020 1:00 PM CDT 500 Units heparin, porcine lock flush (pf) 100 unit/mL injection 500 Units 500 Units, IV, ONE TIME ONLY, 1 dose, On Sat12/28/20 at 1300, Routine, PLEASE TUBE TO STATION 516. Given 12/28/2020 1:00 PM CDT 500 Units HYDROcodone-acetaminophen (NORCO) 5-325 mg per tablet 1 Tablet 1 Tablet, Oral, EVERY 4 HOURS PRN, Starting on Sat12/28/20 at 1500, Until Sat01/02/21 at 1621, Pain (See admin instructions), Routine Given 01/01/2021 11:16 PM CDT 1 Tablet Given 01/01/2021 6:05 PM CDT 1 Tablet Given 01/01/2021 2:34 PM CDT 1 Tablet HYDROmorphone (DILAUDID) 2 mg/mL injection 0.3 mg 0.3 mg, IV, EVERY 3 HOURS PRN, Starting on Sat12/27/20 at 0010, Until Sat12/28/20 at 1500, Pain (See admin instructions), Routine Given 12/28/2020 1:06 PM CDT 0.3 mg Given 12/28/2020 9:19 AM CDT 0.3 mg Given 12/28/2020 5:33 AM CDT 0.3 mg HYDROmorphone (DILAUDID) 2 mg/mL injection 0.3 mg 0.3 mg, IV, ONE TIME PRN, 1 dose, Starting on Katie 12/29/20 at 1629, Until Katie 12/29/20 at 1735, Pain (See admin instructions), Routine Given 12/29/2020 5:35 PM CDT 0.3 m g HYDROmorphone (DILAUDID) 2 mg/mL injection 0.3 mg 0.3 mg, IV, EVERY 2 HOURS PRN, Starting on Sat12/30/20 at 1102, Until Sat01/01/21 at 1740, Pain (See admin instructions), Routine Given 01/01/2021 3:41 PM CDT 0.3 m g Given 01/01/2021 12:30 PM CDT 0.3 mg Given 01/01/2021 3:26 AM CDT 0.3 mg HYDROmorphone (DILAUDID) 2 mg/mL injection 0.3 mg 0.3 mg, IV, EVERY 4 HOURS PRN, Starting on Sat01/01/21 at 1745, Until 01/02/21 at 0919, Pain (See admin instructions), Routine Given 01/02/2021 1:37 AM CDT 0.3 m g Given 01/01/2021 6:35 PM CDT 0.3 mg insulin glargine (LANTUS) injection 20 Units 20 Units, subCUT, TWO TIMES DAILY, First dose on Sat12/28/20 at 2100, Until Discontinued, Routine Given 12/29/2020 8:24 AM CDT 20 Units Arm, Left Upper Given 12/28/2020 10:52 PM CDT 20 Units A rm, Right Upper insulin regular (HUMULIN R,NOVOLIN R) 1 Units/mL in sodium chloride 0.9% infusion 0-25 Units/hr (0-25 mL/hr), IV, TITRATE, Starting on Sat12/27/20 at 0030, Until Sat12/28/20 at 1311 New Bag 12/28/2020 1:04 PM CDT 0.1 Units/hr 0.1 mL/hr Rate Change 12/28/2020 11:42 AM CDT 0.6 Units/hr 0.6 mL/hr Rate Change 12/28/2020 1:00 AM CDT 0.1 Units/hr 0.1 mL/hr insulin regular (HUMULIN R,NOVOLIN R) 1 Units/mL in sodium chloride 0.9% infusion 0-25 Units/hr (0-25 mL/hr), IV, TITRATE, Starting on Sat12/29/20 at 1130, Until Sat01/02/21 at 0918 Rate Change 01/02/2021 8:47 AM CDT 1 Units/hr 1 mL/hr Bag Switched 01/02/2021 7:37 AM CDT 0.5 Units/hr 0.5 mL/hr Rate Change 01/02/2021 7:35 AM CDT 0.5 Units/hr 0.5 mL/hr iopamidoL (ISOVUE-300) 61 % injection (drawn from multi-use bulk pack) 120 mL 120 mL, IV, INTRA-PROCEDURE ONCE, 1 dose, Starting on Sat12/26/20 at 2159, Until Sat12/26/20 at 2159, Routine Contrast Given 12/26/2020 9:59 PM CDT 120 mL levothyroxine (SYNTHROID) tablet 200 mcg 200 mcg, Oral, DAILY EARLY, First dose on Sat12/27/20 at 0600, Until Discontinued, Routine, Previous Med: levothyroxine 200 mcg tablet - Orig Sig - Take 1 Tablet (200 mcg) by mouth daily. Once daily on an empty stomach Given 01/02/2021 5:41 AM CDT 200 mcg Given 01/01/2021 5:32 AM CDT 200 mcg Given 12/31/2020 5:33 AM CDT 200 mcg LORazepam (ATIVAN) tablet 1 mg 1 mg, Oral, TWO TIMES DAILY PRN, Starting on Sat12/27/20 at 0007, Until Sat01/02/21 at 1621, Anxiety, Routine, Previous Med: LORazepam (ATIVAN) 1 mg tablet - Orig Sig - Take 1 Tablet (1 mg) by mouth 2 times daily as needed for Anxiety. Given 01/01/2021 11:34 AM CDT 1 mg Given 01/01/2021 12:34 AM CDT 1 mg Given 12/31/2020 4:41 PM CDT 1 mg morphine 4 mg/mL injection 2 mg 2 mg, IV, EVERY 2 HOURS PRN, Starting on Sat12/29/20 at 1159, Until Sat12/29/20 at 1418, Pain (See admin instructions), Routine Given 12/29/2020 1:48 PM CDT 2 mg Given 12/29/2020 12:05 PM CDT 2 mg morphine 4 mg/mL injection 4 mg 4 mg, IV, EVERY 2 HOURS PRN, Starting on Sat12/26/20 at 2113, Until Sat12/27/20 at 0352, Pain (See admin instructions), Routine Given 12/26/2020 11:17 PM CDT 4 mg Given 12/26/2020 9:24 PM CDT 4 mg morphine 4 mg/mL injection 4 mg 4 mg, IV, EVERY 2 HOURS PRN, Starting on Sat12/29/20 at 1418, Until Sat12/30/20 at 0914, Pain (See admin instructions), Routine Given 12/30/2020 8:10 AM CDT 4 mg Given 12/29/2020 9:49 PM CDT 4 mg Given 12/29/2020 7:33 PM CDT 4 mg naloxone (NARCAN) 0.4 mg/mL injection 0.1 mg 0.1 mg, IV, SEE ADMIN INSTRUCTIONS, Starting on Sat12/29/20 at 1556, Until Sat01/02/21 at 1621, Routine ondansetron (ZOFRAN) 4 mg/2 mL injection 4 mg 4 mg, IV, ONE TIME ONLY, 1 dose, On Sat12/26/20 at 2015, Routine Given 12/26/2020 8:19 PM CDT 4 mg ondansetron (ZOFRAN) 4 mg/2 mL injection 4 mg 4 mg, IV, EVERY 6 HOURS PRN, Starting on Sat12/26/20 at 2113, Until Sat01/02/21 at 1621, Nausea/Emesis, Routine Given 01/01/2021 5:36 PM CDT 4 mg Given 12/29/2020 11:50 AM CDT 4 mg Given 12/26/2020 9:24 PM CDT 4 mg pantoprazole (PROTONIX) tablet 40 mg 40 mg, Oral, TWO TIMES DAILY, First dose on Sat12/27/20 at 0015, Until Discontinued, Routine, Previous Med: pantoprazole (PROTONIX) 40 mg Tablet, Delayed Release (E.C.) - Orig Sig - Take 40 mg by mouth 2 times daily . , Indication: Gastroesophageal reflux disease (GERD) Given 01/02/2021 8:53 AM CDT 40 mg Given 01/01/2021 8:55 PM CDT 40 mg Given 01/01/2021 8:35 AM CDT 40 mg piperacillin-tazobactam (ZOSYN) 4.5 gram in dextrose (iso-osmotic) 100 mL IVPB 4.5 Gram, IV, ONE TIME ONLY, 1 dose, On Sat12/26/20 at 2315, Routine, Antibiotic Indication: Intra-abdominal infection / Fecal Contamination, Is sepsis suspected? Unlikely Rate Verify 12/26/2020 11:20 PM CDT 200 mL/hr New Bag 12/26/2020 11:19 PM CDT 4.5 Grams 200 mL/hr potassium CHLORIDE 40 mEq/100 mL IVPB 40 mEq 40 mEq, IV, ONE TIME ONLY, 1 dose, On Sat12/27/20 at 1515, Routine New Bag 12/27/2020 6:14 PM CDT 40 mEq 25 mL/hr sodium chloride 0.9% bolus solution 1,000 mL 1,000 mL, IV, ONE TIME ONLY, 1 dose, On Sat12/27/20 at 0300, at 2,000 mL/hr, Administer over 30 Minutes, Routine Rate Verify 12/27/2020 2:58 AM CDT 999 mL/hr New Bag 12/27/2020 2:54 AM CDT 1,000 mL 999 mL/hr sodium chloride 0.9% bolus solution 1,500 mL 1,500 mL, IV, ONE TIME ONLY, 1 dose, On Sat12/27/20 at 0030, at 1,500 mL/hr, Administer over 60 Minutes, Routine Rate Change 12/27/2020 1:43 AM CDT 999 mL/hr Rate Change 12/27/2020 1:33 AM CDT 700 mL/hr Rate Change 12/27/2020 1:33 AM CDT 999 mL/hr sodium chloride 0.9% infusion IV, at 200 mL/hr, CONTINUOUS, Starting on Sat12/27/20 at 0015, Until Sat12/27/20 at 0353, Routine Rate Verify 12/27/2020 1:53 AM CDT 200 mL/hr New Bag 12/27/2020 1:52 AM CDT 200 mL/hr sodium chloride flush injection 10 mL 10 mL, IV, SEE ADMIN INSTRUCTIONS, Starting on Sat12/26/20 at 2159, Until Sat12/27/20 at 0158, Routine Given 12/26/2020 9:00 PM CDT 10 mL sodium chloride flush injection 10 mL 10 mL, IV, ONE TIME ONLY, 1 dose, On Sat12/28/20 at 1300, Routine, PLEASE TUBE TO STATION 516. Given 12/28/2020 1:00 PM CDT 10 mL sodium chloride flush injection 10 mL 10 mL, IV, ONE TIME ONLY, 1 dose, On Sat12/28/20 at 1300, Routine Given 12/28/2020 1:00 PM CDT 10 mL sodium chloride flush injection 20 mL 20 mL, IV, ONE TIME ONLY, 1 dose, On Sat12/28/20 at 1300, Routine, PLEASE TUBE TO STATION 516. Given 12/28/2020 1:00 PM CDT 20 mL traZODone (DESYREL) tablet 100 mg 100 mg, Oral, DAILY AT BEDTIME, First dose on Sat12/27/20 at 0015, Until Discontinued, Routine, Previous Med: traZODone (DESYREL) 100 mg tablet - Orig Sig - Take 100 mg by mouth daily at bedtime . Given 01/01/2021 8:55 PM CDT 100 mg Given 12/31/2020 8:29 PM CDT 100 mg Given 12/30/2020 8:50 PM CDT 100 mg documented in this encounter Active and Recently Administered Medications Times are shown in CDT. Scheduled Medication Order 12/31/2020 01/01/2021 01/02/2021 atorvastatin (LIPITOR) tablet 80 mg 80 mg, Oral, DAILY AT BEDTIME, First dose on Sat12/27/20 at 0100, Until Discontinued, Routine 2028 (Given - Provider: Phyllis Madera RN) 2055 (Given - Provider: Genoveva Smyth RN) buPROPion HCL (WELLBUTRIN SR) 12 hour tablet 150 mg 150 mg, Oral, TWO TIMES DAILY, First dose on Sat12/27/20 at 0100, Until Discontinued, Routine, Previous Med: buPROPion HCL (WELLBUTRIN SR) 150 mg Sustained Release 12 hour tablet - Orig Sig - Take 1 Tablet (150 mg) by mouth 2 times daily. 805 (Given - Provider: Vicki Maradiaga RN)2028 (Given - Provider: Phyllis Madera RN) 932 (Given - Provider: BLAISE Alejandra)2055 (Given - Provider: Genoveva Smyth RN) 54 (Given - Provider: BLAISE Larsen) citalopram (CeleXA) tablet 40 mg 40 mg, Oral, DAILY, First dose on Sat12/27/20 at 0900, Until Discontinued, Routine, Previous Med: citalopram (CeleXA) 40 mg tablet - Orig Sig - TAKE 1 TABLET BY MOUTH EVERY DAY 806 (Given - Provider: Vicki Maradiaga RN) 0933 (Given - Provider: BLAISE Alejandra) 0853 (Given - Provider: BLAISE Larsen) dextrose 5% - sodium chloride 0.9% infusion IV, at 40 mL/hr, SEE ADMIN INSTRUCTIONS, Starting on Sat12/29/20 at 1038, Until Sat01/02/21 at 1621, Routine dextrose 50% (D50) syringe 12.5 Gram 12.5 Gram, IV, SEE ADMIN INSTRUCTIONS, Starting on Sat12/27/20 at 0012, Until Sat01/02/21 at 1621, Routine dextrose 50% (D50) syringe 25 Gram 25 Gram, IV, SEE ADMIN INSTRUCTIONS, Starting on Sat12/27/20 at 0012, Until Sat01/02/21 at 1621, Routine enoxaparin (LOVENOX) injection 40 mg 40 mg, subCUT, DAILY AT BEDTIME, First dose on Sat12/27/20 at 0030, Until Discontinued, Routine, Indication: Prophylaxis of VTE, Dose to be adjusted per facility protocol? Yes 2029 (Given - Provider: Phyllis Madera RN) 2054 (Given - Provider: Genoveva Smyth RN) fenofibrate (LOFIBRA) tablet 160 mg 160 mg, Oral, DAILY, First dose on Sat12/27/20 at 0900, Until Discontinued, Routine, Previous Med: fenofibrate (LOFIBRA) 160 mg Tablet - Orig Sig - TAKE 1 TABLET BY MOUTH EVERY DAY Patient taking differently: Take 160 mg by mouth daily. 08 (Given - Provider: Vicki Maradiaga RN) 0934 (Given - Provider: BLAISE Alejandra) 0859 (Given - Provider: BLAISE Larsen) Fish Oil-[place]-3 Fatty Acids 360-1,200 mg capsule 2 Capsule 2 Capsule, Oral, TWO TIMES DAILY WITH MEALS, First dose on Sat12/28/20 at 1700, Until Discontinued, Routine 0806 (Given - Provider: Vicki Maradiaga RN)1640 (Given - Provider: Puja Courtney RN) 0934 (Given - Provider: BLAISE Alejandra)1633 (Given - Provider: BLAISE Alejandra) 0854 (Given - Provider: BLAISE Larsen) glucagon HCL 1 mg/mL injection 1 mg 1 mg, IM, SEE ADMIN INSTRUCTIONS, Starting on Sat12/29/20 at 1038, Until Sat01/02/21 at 1621, Routine levothyroxine (SYNTHROID) tablet 200 mcg 200 mcg, Oral, DAILY EARLY, First dose on Sat12/27/20 at 0600, Until Discontinued, Routine, Previous Med: levothyroxine 200 mcg tablet - Orig Sig - Take 1 Tablet (200 mcg) by mouth daily. Once daily on an empty stomach 0533 (Given - Provider: Phyllis Madera RN) 0532 (Given - Provider: Phyllis Madera RN) 0541 (Given - Provider: Genoveva Smyth RN) naloxone (NARCAN) 0.4 mg/mL injection 0.1 mg 0.1 mg, IV, SEE ADMIN INSTRUCTIONS, Starting on Sat12/27/20 at 0009, Until Sat01/02/21 at 1621, Routine naloxone (NARCAN) 0.4 mg/mL injection 0.1 mg 0.1 mg, IV, SEE ADMIN INSTRUCTIONS, Starting on Sat12/29/20 at 1556, Until Sat01/02/21 at 1621, Routine pantoprazole (PROTONIX) tablet 40 mg 40 mg, Oral, TWO TIMES DAILY, First dose on Sat12/27/20 at 0015, Until Discontinued, Routine, Previous Med: pantoprazole (PROTONIX) 40 mg Tablet, Delayed Release (E.C.) - Orig Sig - Take 40 mg by mouth 2 times daily . , Indication: Gastroesophageal reflux disease (GERD) 08 (Given - Provider: Vicki Maradiaga RN)2027 (Given - Provider: Phyllsi Madera RN) 0835 (Given - Provider: BLAISE Alejandra)2054 (Given - Provider: Genoveva Smyth RN) 0853 (Given - Provider: BALISE Larsen) traZODone (DESYREL) tablet 100 mg 100 mg, Oral, DAILY AT BEDTIME, First dose on Sat12/27/20 at 0015, Until Discontinued, Routine, Previous Med: traZODone (DESYREL) 100 mg tablet - Orig Sig - Take 100 mg by mouth daily at bedtime . 2028 (Given - Provider: Phyllis Madera RN) 2054 (Given - Provider: Genoveva Smyth RN) Continuous Medication Order 12/31/2020 01/01/2021 01/02/2021 dextrose 5% - sodium chloride 0.9% infusion () IV, at 125 mL/hr, CONTINUOUS, Starting on Sat12/30/20 at 1230, Until 12/31/20 at 1229, Routine 0043 (Bag Switched - Provider: Phyllis Madera RN)0713 (Rate Verify - Provider: Vicki Maradiaga RN)0800 (Rate Verify - Provider: Vicki Maradiaga RN)0844 (New Bag - Provider: Vicki Maradiaga RN)0900 (Rate Verify - Provider: Vicki Maradiaga RN)1000 (Rate Verify - Provider: Vicki Maradiaga RN)1112 (Rate Verify - Provider: Vicki Maradiaga RN)1207 (Rate Verify - Provider: Vicki Maradiaga RN)1400 (Stopped - Provider: Puja Courtney RN) dextrose 5% - sodium chloride 0.9% infusion () IV, at 75 mL/hr, CONTINUOUS, Starting on 12/31/20 at 1445, Until 01/01/21 at 1444, Routine 1445 (Rate Change - Provider: Vicki Maradiaga RN)1800 (Bag Switched - Provider: Puja Courtney RN) 0526 (Paused - Provider: BLAISE Alejandra)0533 (Paused - Provider: BLAISE Alejandra)0533 (Rate Change - Provider: BLAISE Alejandra)0651 (Rate Change - Provider: BLAISE Alejandra)0726 (Rate Change - Provider: BLAISE Alejandra)0814 (Rate Change - Provider: BLAISE Alejandra)0823 (Rate Change - Provider: BLAISE Alejandra)0823 (Paused - Provider: BLAISE Alejandra)0834 (Paused - Provider: BLAISE Alejandra)0834 (Bag Switched - Provider: BLAISE Alejandra)1031 (Rate Verify - Provider: BLAISE Alejandra)1300 (Rate Verify - Provider: BLAISE Alejandra)1400 (Stopped - Provider: BLAISE Alejandra) dextrose 5% - sodium chloride 0.9% infusion (CANCELED) IV, at 75 mL/hr, CONTINUOUS, Starting on 01/01/21 at 1745, Until 01/02/21 at 0918, Routine 1745 (Restarted - Provider: BLAISE Alejandra) 0041 (Bag Switched - Provider: Genoveva Smyth RN)0900 (Stopped - Provider: BLAISE Larsen) insulin regular (HUMULIN R,NOVOLIN R) 1 Units/mL in sodium chloride 0.9% infusion (CANCELED) 0-25 Units/hr (0-25 mL/hr), IV, TITRATE, Starting on Katie 12/29/20 at 1130, Until 01/02/21 at 0918 0048 (Rate Change - Provider: Phyllis Madera RN - Comment: BG 104)0100 (Rate Verify - Provider: Phyllis Madera RN - Comment: BG 110, no change)0302 (Rate Change - Provider: Phyllis Madera RN - Comment: BG 177)0416 (Rate Verify - Provider: Phyllis Madera RN - Comment: BG 114)0513 (Rate Change - Provider: Phyllis Madera RN - Comment: BG 96)0713 (Rate Verify - Provider: Phyllis Madera RN - Comment: BG 100, no change)0805 (Rate Change - Provider: Vicki Maradiaga RN)1020 (Rate Change - Provider: Vicki Maradiaga RN)1112 (Rate Change - Provider: Vicki Maradiaga RN)1424 (Rate Change - Provider: Vicki Maradiaga RN)1526 (Rate Change - Provider: Vicki Maradiaga RN)1629 (Rate Verify - Provider: Puja R Sherwin, RN - Comment: bs 130)1720 (Rate Change - Provider: Katia Diaz, RN)1811 (Rate Change - Provider: Puja Courtney RN)1939 (Rate Verify - Provider: Phyllis Madera RN - Comment: BG 113)2041 (Rate Verify - Provider: Phyllis Madera RN - Comment: BG 117)2155 (Rate Change - Provider: Phyllis Madera RN - Comment: BG 144)2232 (Rate Change - Provider: Yamil Luke RN)2350 (Stopped - Provider: Phyllis Madera RN) 0032 (Restarted - Provider: Phyllis Madera RN - Comment: BG 138)0217 (Rate Verify - Provider: Phyllis Madera RN - Comment: BG 131, no change)0327 (Rate Verify - Provider: Phyllis Madera RN - Comment: BG 132, no change)0415 (Rate Verify - Provider: Phyllis Madera RN - Comment: BG 139, no change)0537 (Rate Change - Provider: Phyllis Madera RN - Comment: BG 168)0624 (Rate Verify - Provider: Phyllis Madera RN - Comment: BG 164, no change)0730 (Rate Verify - Provider: Phyllis Madera RN - Comment: BG 142, no change)0837 (Rate Change - Provider: BLAISE Alejandra - Comment: Bg 113)0932 (Rate Verify - Provider: BLAISE Alejandra - Comment: BG 111)1031 (Rate Change - Provider: BLAISE Alejandra)1133 (Rate Change - Provider: BLAISE Alejandra)1225 (Rate Verify - Provider: BLAISE Alejandra - Comment: BG 170)1226 (Rate Change - Provider: BLAISE Alejandra - Comment: Bg 170)1331 (Rate Verify - Provider: Katie Herrera RN - Comment: BG 156)1432 (Rate Change - Provider: BLAISE Alejandra - Comment: bg 179)1532 (Rate Verify - Provider: BLAISE Alejandra - Comment: BG 180)1631 (Rate Change - Provider: Allie Madrigal, GN - Comment: Bg 140)1803 (Rate Change - Provider: BLAISE Alejandra - Comment: bg 129)1834 (Rate Verify - Provider: BLAISE Alejandra - Comment: 149)1900 (Rate Verify - Provider: BLAISE Alejandra - Comment: 149)2030 (Rate Change - Provider: Genoveva Smyth RN)2207 (Rate Change - Provider: Genoveva Smyth RN) 0033 (Rate Change - Provider: Genoveva Smyth RN)0132 (Stopped - Provider: Genoveva Smyth RN)0206 (Rate Change - Provider: Genoveva Smyth RN - Comment: bg 96)0735 (Rate Change - Provider: BLAISE Larsen - Comment: BG 91)0737 (Bag Switched - Provider: BLAISE Larsen)0847 (Rate Change - Provider: BLAISE Larsen - Comment: BG 123)0900 (Stopped - Provider: BLAISE Larsen) PRN Medication Order 12/31/2020 01/01/2021 01/02/2021 acetaminophen (TYLENOL) tablet 650 mg 650 mg, Oral, EVERY 4 HOURS PRN, Starting on Sat12/27/20 at 1402, Until Sat01/02/21 at 1621, Pain, Routine 173 (Given - Provider: BLAISE Alejandra) diphenhydrAMINE (BENADRYL) tablet 25 mg 25 mg, Oral, EVERY 6 HOURS PRN, Starting on 12/31/20 at 1759, Until Sat01/02/21 at 1621, Itching, Routine 2038 (Given - Provider: Phyllis Madera RN) 0834 (Given - Provider: BLAISE Alejandra) diphenhydrAMINE-zinc acetate (BENADRYL EXTRA STRENGTH) 2-0.1 % topical cream Topical, EVERY 4 HOURS PRN, Starting on 12/31/20 at 2142, Until Sat01/02/21 at 1621, Itching, Routine HYDROcodone-acetaminop hen (NORCO) 5-325 mg per tablet 1 Tablet 1 Tablet, Oral, EVERY 4 HOURS PRN, Starting on Sat12/28/20 at 1500, Until Sat01/02/21 at 1621, Pain (See admin instructions), Routine 0301 (Given - Provider: Phyllis Madera RN)0809 (Given - Provider: Vicki Maradiaga RN)1640 (Given - Provider: Puja Courtney RN)2201 (Given - Provider: Phyllis Madera RN) 0525 (Given - Provider: Phyllis Madera RN)0933 (Given - Provider: BLAISE Alejandra)1434 (Given - Provider: BLAISE Alejandra)1805 (Given - Provider: BLAISE Alejandra)2316 (Given - Provider: Genoveva Smyth RN) HYDROmorphone (DILAUDID) 2 mg/mL injection 0.3 mg (CANCELED) 0.3 mg, IV, EVERY 2 HOURS PRN, Starting on Sat12/30/20 at 1102, Until 01/01/21 at 1740, Pain (See admin instructions), Routine 0514 (Given - Provider: Phyllis Madera RN)0856 (Given - Provider: Vicki Maradiaga RN)1115 (Given - Provider: Vicki Maradiaga RN)1449 (Given - Provider: Vicki Maradiaga RN)1754 (Given - Provider: Puja Courtney RN)2028 (Given - Provider: Phyllis Madera RN)2232 (Given - Provider: Yamil Luke RN) 0033 (Given - Provider: Phyllis Madera RN)0326 (Given - Provider: Phyllis Madera RN)1230 (Given - Provider: BLAISE Alejandra)1541 (Given - Provider: BLAISE Alejandra) HYDROmorphone (DILAUDID) 2 mg/mL injection 0.3 mg (CANCELED) 0.3 mg, IV, EVERY 4 HOURS PRN, Starting on 01/01/21 at 1745, Until 01/02/21 at 0919, Pain (See admin instructions), Routine 1835 (Given - Provider: BLAISE Alejandra) 0137 (Given - Provider: Genoveva Smyth RN) LORazepam (ATIVAN) tablet 1 mg 1 mg, Oral, TWO TIMES DAILY PRN, Starting on Sat12/27/20 at 0007, Until Sat01/02/21 at 1621, Anxiety, Routine, Previous Med: LORazepam (ATIVAN) 1 mg tablet - Orig Sig - Take 1 Tablet (1 mg) by mouth 2 times daily as needed for Anxiety. 1641 (Given - Provider: Puja Courtney RN)2024 (Canceled Entry - Provider: Phyllis Madera RN) 0034 (Given - Provider: Phyllis Madera RN)1134 (Given - Provider: BLAISE Alejandra) ondansetron (ZOFRAN) 4 mg/2 mL injection 4 mg 4 mg, IV, EVERY 6 HOURS PRN, Starting on Sat12/26/20 at 2113, Until Sat01/02/21 at 1621, Nausea/Emesis, Routine 1736 (Given - Provider: BLAISE Alejandra) documented in this encounter Additional Health Concerns Assessment Noted Time PHQ-9 Depression Total Score: 1 08/11/19 21 6:30 PM CDT documented as of this encounter Care Teams Manager Sterile Processing Relationship Specialty Start Date End Date Guerrero Middleton PA-C PCP - General Physician Poultry Trimmer 02/13/18 documented as of this encounter
--- OUTSIDE RECORDS SUMMARY | 2024-05-03 20:40 | XMS_ITS | Encounter Summary ---
Author Organization [facility] Address [address] [place]roz[place]: Epic Prelude ADT [place] [id number] Care Team Providers Care Supervisor Tower Name Role Phone Guerrero Middleton PA-C Primary Care Provide r Encounter Details Date Type Department Care Team (Latest Contact Info) Description 08/10/2020 Travel Social History Tobacco Use Types Packs/Day [...] week 08/21/2018 How often do you attend [facility] or adventist services? Never 08/21/2018 Do you belong to [...] [facility] [id number] [place] [address] Marlys Mayer MD [address] [place] [address] documented as of this encounter Visit Diagnoses Not on filedocumented in this encounter Additional Health Concerns Assessment Noted Time PHQ-9 Depression Total Score: 1 08/11/19 21 6:30 PM CDT documented as of this encounter Care Teams Supervisor Tower Relationship Specialty Start Date End Date Guerrero Middleton PA-C PCP - General Physician Airline Attendant 02/13/18 documented as of this encounter
--- OUTSIDE RECORDS SUMMARY | 2024-05-03 20:40 | XMS_ITS | Encounter Summary ---
Author Organization [facility] Address [address] [place] [address] Care Team Providers Care Chili Powder Mixer Name Role Phone Guerrero Middleton PA-C Primary Care Provide r Encounter Details Date Type Department Care Team (Latest Contact Info) Description 11/09/2020 11:59 PM CDT Hospital Encounter [facility] Donor Services [facility] [address] [place] [address] Alize Arteaga MD NO ADDRESS ON FILE Left without seen Discharge Disposition: Home or Self Care Social [...] often do you attend chur ch or gnosticism services? Never 08/21/2018 Do you belong to any clubs o r organizations such as confucianist groups, unions, fraternal or athletic groups, or [...] Reading Time Taken Comments Blood Pressure 116/77 11/09/2020 11:55 AM CDT Pulse 91 11/09/2020 11:55 AM CDT Temperature 36.4 ??C (97.6 ??F) 11/09/2020 11:55 AM C DT Respiratory Rate 16 11/09/2020 11:55 AM CDT Oxygen Saturation - - Inhaled [...] as of this encounter Progress Notes * Rosales Tapia RN - 11/09/2020 12:30 PM CDT Plasma exchange completed using the right and left chest bard ports for access and return with 5% as replacement fluids for a 1.0 volume exchange. Pt accessed and deaccessed following protocol.Occlusive dressing + gauze applied to both side after procedure. No bleeding noted at time of discharge. Pt left in stable condition with . * Alize Arteaga MD - 11/09/2020 10:30 AM CDT CC: ??44??yo female undergoing prophylaxis for??hypertriglyceridemic pancreatitis in the setting of?recurrent necrotizing pancreatitis requires??plasma exchange. ?? Interval history:??Patient feels about at baseline. No acute complaints at this time. ?? PMH:??Familial hypertriglyceridemia (associated with prior episodes [...] Well nourished - In no acute distress Eyes: - No scleral icterus Neck: - No masses, symmetrical Cardiac: - No lower extremity edema Skin: - Inspection: No rashes evident - R??and L??chest port sites??well healed with pink scar Respiratory: - Unlabored breathing Neuro: - Alert and Oriented x??4 - Normal Affect ?Labs: WBC 9.3, hemoglobin 14.2, hematocrit 42.1, platelets 254 Preprocedure triglycerides 4,173 ?? A&P: 1. 44??yo female with??recurrent??hypertriglyceridemic pancreatitis [...] procedure. ?? 3. Plan to see patient?in 1 month for her next procedure.? I have seen and examined the patient, reviewed pertinent notes and records, and remained immediately available throughout the procedure. ?? Alize Arteaga MD, PhD Swimming Pool Plasterer Helper, therapeutic apheresis service [phone] ?? Procedure??notes:?L and??R bard ports??used for procedure. ??Patient tolerated procedure well. documented in this encounter Plan of Treatment Upcoming Encounters Date Type Department Care Team (Late st Contact Info) Description 09/14/2024 3:00 PM CDT Office Visit [facility] Heart and Vascular - [facility] [address] [place] [address] Marlys Mayer MD [address] [place] [address] documented as of this encounter Procedures Procedure Name Priority Date/Time Associated Diagnosis Comments CBC WITHOUT DIFFERENTIAL Routine 11/09/2020 9:59 AM CDT Hypertriglyceridemi a TRIGLYCERIDE Routine 11/09/2020 9:59 AM CDT Hypertriglyceridemi a BASIC METABOLIC PANEL Routine 11/09/2020 9:59 AM CDT Uncontrolled type 2 diabetes mellitus with insulin therapy documented in this encounter Results * (ABNORMAL) BASIC METABOLIC PANEL (11/09/2020 9:59 AM CDT) SODIUM 134(L) 136 - 145 mmol/L 11/09/2020 11:02 AM T [facility] LABORATORY SERVICES - [facility] POTASSIUM 4.0 3.5 - 5.0 mmol/L 11/09/2020 11:02 AM T [facility] LAB[facility]ATORY SERVICES - [facility] CHLORIDE 99 98 - 107 mmol/L 11/09/2020 11:02 AM T [facility] CO2 21(L) 22 - 29 mmol/L 11/09/2020 11:02 AM T [facility] LABORATORY SERVICES - [facility] CALCIUM 8.6 8.6 - 10.2 mg/dL 11/09/2020 11:02 AM T [facility] LABORATORY SERVICES - [facility] BUN 9 6 - 20 mg/dL 11/09/2020 11:02 AM T [facility] LABORATORY SERVICES - . [facility] CREATININE 0.39(L) 0.51 - 0.95 mg/dL 11/09/2020 11:02 AM T [facility] LABORATORY SERVICES - . [facility] GLUCOSE 182(H) 74 - 99 mg/dL 11/09/2020 11:02 AM T [employer] [facility] LABORATORY SERVICES - [facility] GFR >60 mL/min/1.7 3 sq meter 11/09/2020 11:02 AM CDT [facility] - [facility] Comment: eGFR has not [...] mL/min/1.7 3 sq meter 11/09/2020 11:02 AM T [employer] LABORATORY SERVICES - [facility] ANION GAP 14 8 - 16 mmol/L 11/09/2020 11:02 AM T [facility] - [facility] Blood Venipuncture / Unknown 11/09/2020 9:59 AM CDT 11/09/2020 10:26 AM CDT Prudence Gates MD CHEMISTRY ORDERAB LES [facility] [employer] [facility]# [id number] [address] [facility] [place] [address] * (ABNORMAL) CBC WITHOUT DIFFERENTIAL (11/09/2020 9:59 AM CDT) WBC 9.3 4.0 - 9.8 K/uL 11/09/2020 10:31 AM CDT [facility] RBC 4.79 3.90 - 4.90 M/uL 11/09/2020 10:31 AM T [employer] LABORATORY SERVICES - [facility] HEMOGLOBIN 14.2 11.8 - 14.8 g/dL 11/09/2020 10:31 AM CDT [employer] LABORATORY SERVICES - [facility] HEMATOCRIT 42.1 35.5 - 44.0 % 11/09/2020 10:31 AM T [employer] LABORATORY SERVICES - [facility] MCV 87.9 82.0 - 99.0 fL 11/09/2020 10:31 AM CDT [facility] LABORATORY SERVICES - [facility] MCH 29.6 27.2 - 32.6 pg 11/09/2020 10:31 AM CDT [facility] LABORATORY SERVICES - [facility] MCHC 33.7 31.5 - 35.5 g/dL 11/09/2020 10:31 AM CDT [facility] LABORATORY SERVICES - [facility] PLATELETS 254 140 - 350 K/uL 11/09/2020 10:31 AM CDT [facility] LABORATORY SERVICES - [facility] MPV 9.1(L) 9.3 - 12.4 fL 11/09/2020 10:31 AM CDT [facility] LABORATORY SERVICES - [facility] RDW 14.4 11.5 - 14.5 % 11/09/2020 10:31 AM CDT [facility] LABORATORY SERVICES - [facility] RDW-STDEV 46.4 37.1 - 48.7 fL 11/09/2020 10:31 AM CDT [facility] LABORATORY SERVICES - [facility] Blood Venipuncture / Unknown 11/09/2020 9:59 AM CDT 11/09/2020 10:26 AM CDT Alize Arteaga MD HEMATOLOGY ORDE [facility] Organization Address City/State/ZIP Co de Phone Number [facility] [employer] [facility]# [id number] [address] [facility] [place] [address] * (ABNORMAL) TRIGLYCERIDE (11/09/2020 9:59 AM CDT) TRIGLYCERIDE 2,076(H) <150 mg/dL 11/09/2020 11:22 AM CDT [facility] [employer] SERVICES - [facility] Blood Venipuncture / Unknown 11/09/2020 9:59 AM CDT 11/09/2020 10:26 AM CDT Narrative [facility] LABORATORY [facility] - [facility] - 11/09/2020 11:22 AM CDT TRIGLYCERIDES ? mg/dL Normal ?< 150 Borderline High ?150 - 199 High ? 200 - 499 Very High ? >= 500 Based on AHA/NCEP Guidelines. Alize Arteaga MD CHEMISTRY ORDER [facility] LABORATORY SERVICES - [facility]# [id number] [address] [facility] [place] [address] documented in this encounter Visit Diagnoses Diagnosis Hypertriglyceridemia- Primary Pure hyperglyceridemia Uncontrolled type 2 diabetes mellitus with insulin therapy Type II or unspecified type diabetes mellitus without mention of complication, uncontrolled documented in this encounter Administered Medications Inactive Administered Medications - up to 3 most recent administrations Medication Order MAR Action Action Date Dose Rate Site calcium GLUCONATE 2,000 mg in sodium chloride (iso-osmotic) 100 mL IVPB 2,000 mg, IV, INTRA-PROCEDURE ONCE, 1 dose, Starting on Sat11/09/20 at 1030, Until Sat11/09/20 at 1155, Routine New Bag 11/09/2020 10:38 AM CDT 2,000 mg 100 mL/hr heparin, porcine (pf) 10 unit/mL IV syringe 20 Units 20 Units, IV, ONE TIME ONLY, 1 dose, On Sat11/09/20 at 1030, Routine Given 11/09/2020 11:55 AM CDT 20 Units heparin, porcine lock flush (pf) 100 unit/mL injection 500 Units 500 Units, IV, ONE TIME ONLY, 1 dose, On Sat11/09/20 at 1030, Routine Given 11/09/2020 11:55 AM CDT 500 Units heparin, porcine lock flush (pf) 100 unit/mL injection 500 Units 500 Units, IV, ONE TIME ONLY, 1 dose, On Sat11/09/20 at 1030, Routine Given 11/09/2020 12:00 PM CDT 500 Units documented in this encounter Additional Health Concerns Assessment Noted Time PHQ-9 Depression Total Score: 1 08/11/19 6:30 PM CDT documented as of this encounter Care Teams Chili Powder Mixer Relationship Specialty Start Date End Date Guerrero Middleton PA-C PCP - General Physician Environmental Health Manager 02/13/18 documented as of this encounter
--- OUTSIDE RECORDS SUMMARY | 2024-05-03 20:40 | XMS_ITS | Encounter Summary ---
Author Organization [facility] Address [address] Orozco: Epic Prelude ADT [place] [address] Care Team Providers Care Wood Boring Machine Operator Name Role Phone Guerrero Middleton PA-C Primary Care Provide r Encounter Details Date Type Department Care Team (Latest Contact Info) Description 11/09/2020 Travel Social History Tobacco Use Types Packs/Day [...] often do you attend [facility] or druze services? Never 08/21/2018 Do you [...] [facility] [address] [place] [address] Marlys Mayer MD [address] [place] [address] documented as of this encounter Visit Diagnoses Not on filedocumented in this encounter Additional Health Concerns Assessment Noted Time PHQ-9 Depression Total Score: 1 08/11/19 21 6:30 PM CDT documented as of this encounter Care Teams Wood Boring Machine Operator Relationship Specialty Start Date End Date Guerrero Middleton PA-C PCP - General Physician Account Manager Trainee 02/13/18 documented as of this encounter
--- OUTSIDE RECORDS SUMMARY | 2024-05-03 20:40 | XMS_ITS | Encounter Summary ---
Author Organization [facility] Address [address] Orozco: Epic Prelude ADT [place] [address] Care Team Providers Care Shirt Sewer Name Role Phone Guerrero Middleton PA-C Primary Care Provide r Encounter Details Date Type Department Care Team (Latest Contact Info) Description 12/26/2020 Travel Social History Tobacco Use Types Packs/Day [...] week 08/21/2018 How often do you attend [facility] or yazdanism services? Never 08/21/2018 Do [...] Specialized Hospital [facility] [address] [place] [address] Marlys Mayer MD [address] [place] [address] documented as of this encounter Visit Diagnoses Not on filedocumented in this encounter Additional Health Concerns Assessment Noted Time PHQ-9 Depression Total Score: 1 08/11/19 6:30 PM CDT documented as of this encounter Care Teams Shirt Sewer Relationship Specialty Start Date End Date Guerrero Middleton PA-C PCP - General Physician Metallurgical Engineering Technician 02/13/18 documented as of this encounter
--- OUTSIDE RECORDS SUMMARY | 2024-05-03 20:40 | XMS_ITS | Encounter Summary ---
Author Organization [facility] Address [address] [place] [address] Care Team Providers Care Cone Operator Name Role Phone Guerrero Middleton PA-C Primary Care Provide r Encounter Details Date Type Department Care Team (Latest Contact Info) Description 10/12/2020 9:23 AM CDT - 10/12/2020 11:59 PM CDT Hospital Encounter [facility] Donor Services [address] [phone] Alize Arteaga MD NO ADDRESS ON FILE [...] any clubs o r organizations such as amish groups, unions, fraternal or athletic groups, or [...] Sign Reading Time Taken Comments Blood Pressure 126/82 10/12/2020 10:56 AM CDT Pulse 82 10/12/2020 10:56 AM CDT Temperature 37.1 ??C (98.8 ??F) 10/12/2020 10:56 AM C DT Respiratory Rate 16 10/12/2020 10:56 AM CDT Oxygen Saturation - - Inhaled [...] Progress Notes * Puja Paz RN - 10/12/2020 9:30 AM CDT Plasma exchange completed using R/L bard ports. 1.0 volume, 100% fluid balance using 5% albumin as replacement fluid. Pt tolerated the procedure well. Next procedure scheduled for Saturday11/09/2020. * Alize Arteaga MD - 10/12/2020 9:30 AM CDT CC: ??44??yo female undergoing prophylaxis for??hypertriglyceridemic pancreatitis in the setting of?recurrent necrotizing pancreatitis requires??plasma exchange. ?? Interval history:??Patient feels good. No complaints at this time. ?? 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 ??Admission for pancreatitis requiring apheresis 05/2020, 06/2020, 07/2020). [...] Oriented x??4 - Normal Affect ?Labs: WBC 10.0, hemoglobin 14.2, hematocrit 40.0, platelets 310 Preprocedure triglycerides 4,173 ?? A&P: 1. 44??yo [...] the procedure. ?? 3. Plan to see patient?? in 1 month for her next procedure.? I have seen and examined the patient, reviewed pertinent notes and records, and remained immediately available throughout the procedure. ?? Alize Arteaga MD, PhD Supply Chain Business Analyst, therapeutic apheresis service [phone] ?? Procedure??notes:?L and??R bard ports??used for procedure. ??Patient tolerated procedure well. Discussed with patient how long she wants to wait before next procedure. Although her pre-procedure triglycerides were quite high, she is feeling great and would prefer to extent to 4 weeks. We scheduled her for four weeks out and she will call apheresis to schedule sooner if she becomes symptomatic.?? documented in this encounter Plan of Treatment Upcoming Encounters Date Type Department Care Team (Late st Contact Info) Description 09/14/2024 3:00 PM CDT Office Visit [facility] Heart and Vascular - [place] [address] [place] [address] Marlys Mayer MD [address] [place] [address] documented as of this encounter Procedures Procedure Name Priority Date/Time Associated Diagnosis Comments CBC WITHOUT DIFFERENTIAL Routine 10/12/2020 9:45 AM CDT Hypertriglyceridemi a TRIGLYCERIDE Routine 10/12/2020 9:45 AM CDT Hypertriglyceridemi a documented in this encounter Results * (ABNORMAL) CBC WITHOUT DIFFERENTIAL (10/12/2020 9:45 AM CDT) WBC 10.0(H) 4.0 - 9.8 K/uL 10/12/2020 10:35 AM CDT [facility] LABORATORY SERVICES - [facility] RBC 4.57 3.90 - 4.90 M/uL 10/12/2020 10:35 AM CDT [employer] LABORATORY SERVICES - [facility] HEMOGLOBIN 14.2 11.8 - 14.8 g/dL 10/12/2020 10:35 AM CDT [facility] LABORATORY SERVICES - [facility] Comment:Results corrected fo r elevated lipids. HEMATOCRIT 40.0 35.5 - 44.0 % 10/12/2020 10:35 AM CDT [facility] LABORATORY SERVICES - [facility] MCV 87.5 82.0 - 99.0 fL 10/12/2020 10:35 AM CDT [facility] LABORATORY SERVICES - [facility] MCH 31.1 27.2 - 32.6 pg 10/12/2020 10:35 AM CDT [facility] - [facility] MCHC 35.5 31.5 - 35.5 g/dL 10/12/2020 10:35 AM CDT [facility] SERVICES - [facility] PLATELETS 310 140 - 350 K/uL 10/12/2020 10:35 AM CDT [facility] LABORATORY SERVICES - [facility] MPV 9.3 9.3 - 12.4 fL 10/12/2020 10:35 AM CDT [facility] LABORATORY SERVICES - [facility] RDW 14.3 11.5 - 14.5 % 10/12/2020 10:35 AM CDT [facility] LABORATORY SERVICES - [facility] RDW-STDEV 46.1 37.1 - 48.7 fL 10/12/2020 10:35 AM CDT [facility] LABORATORY SERVICES - [facility] Blood Venipuncture / Unknown 10/12/2020 9:45 AM CDT 10/12/2020 9:45 AM CDT Alize Arteaga MD HEMATOLOGY ORDE RABJANES Performing Organization Address [facility]/ZIP Co de Phone Number [facility] [employer] [facility] CLIA# [id number] [address] [place] [address] * (ABNORMAL) TRIGLYCERIDE (10/12/2020 9:45 AM CDT) TRIGLYCERIDE 4,173(H) <150 mg/dL 10/12/2020 10:32 AM CDT [facility] LABORATORY [facility] Blood Venipuncture / Unknown 10/12/2020 9:45 AM CDT 10/12/2020 9:45 AM CDT Narrative [facility] LABORATORY [facility] - [facility] - 10/12/2020 10:32 AM CDT TRIGLYCERIDES ? mg/dL Normal ?< 150 Borderline High ?150 - 199 High ? 200 - 499 Very High ? >= 500 Based on AHA/NCEP Guidelines. Alize Arteaga MD CHEMISTRY ORDER OSVALDO Performing Organization Address [facility]/ZIP Co de Phone Number [facility] [employer] [facility] CLIA# [id number] [address] [place] [address] documented in this encounter Visit Diagnoses Diagnosis Hypertriglyceridemia- Primary Pure hyperglyceridemia documented in this encounter Administered Medications Inactive Administered Medications - up to 3 most recent administrations Medication Order MAR Action Action Date Dose Rate Site calcium GLUCONATE 2,000 mg in sodium chloride (iso-osmotic) 100 mL IVPB 2,000 mg, IV, INTRA-PROCEDURE ONCE, 1 dose, Starting on Sat10/12/20 at 0930, Until Sat10/12/20 at 1052, Routine New Bag 10/12/2020 9:50 AM CDT 2,000 mg 100 mL /hr heparin, porcine (pf) 10 unit/mL IV syringe 20 Units 20 Units, IV, ONE TIME ONLY, 1 dose, On Sat10/12/20 at 0930, Routine, Please tube to 516, thanks! Given 10/12/2020 10:48 AM CDT 20 Units heparin, porcine lock flush (pf) 100 unit/mL injection 500 Units 500 Units, IV, ONE TIME ONLY, 1 dose, On Sat10/12/20 at 0930, Routine Given 10/12/2020 10:48 AM CDT 500 Units heparin, porcine lock flush (pf) 100 unit/mL injection 500 Units 500 Units, IV, ONE TIME ONLY, 1 dose, On Sat10/12/20 at 0930, Routine Given 10/12/2020 10:48 AM CDT 500 Units documented in this encounter Additional Health Concerns Assessment Noted Time PHQ-9 Depression Total Score: 1 08/11/19 21 6:30 PM CDT documented as of this encounter Care Teams Cone Operator Relationship Specialty Start Date End Date Guerrero Middleton PA-C PCP - General Physician Crayon Painter 02/13/18 documented as of this encounter
--- OUTSIDE RECORDS SUMMARY | 2024-05-03 20:40 | XMS_ITS | Encounter Summary ---
Author Organization [facility] Address [address] [place] [address] Care Team Providers Care Mussel Farmer Name Role Phone Guerrero Middleton PA-C Primary Care Provide r Reason for Visit * Reason Comments Diabetes sensor upload Encounter Details Date Type Department Care Team (Late st Contact Info) Description 11/09/2020 Chart Note [facility] Endocrinology [address] [place] [address] Prudence Gates MD [address] [place], [place] [id number] Diabetes (sensor upload ) Social History Tobacco Use Types Packs/Day Years [...] any clubs o r organizations such as episcopal groups, unions, fraternal or athletic groups, or [...] Notes * Shira Olivo RN - 11/09/2020 1:37 PM CDT Sensor uploaded and given to MD for interpretation. See scan document for recommendations. To record insulin and food documented in this encounter Plan of Treatment Upcoming Encounters Date Type Department Care Team (Late st Contact Info) Description 09/14/2024 3:00 PM CDT Office Visit [facility] Heart and Vascular - [place] [address] [place] [phone] Marlys Mayer MD [address] [place] [address] documented as of this encounter Visit Diagnoses Diagnosis Uncontrolled type 2 diabetes mellitus with insulin therapy- Primary Type II or unspecified type diabetes mellitus without mention of complication, uncontrolled documented in this encounter Additional Health Concerns Assessment Noted Time PHQ-9 Depression Total Score: 1 08/11/19 21 6:30 PM CDT documented as of this encounter Care Teams Mussel Farmer Relationship Specialty Start Date End Date Guerrero Middleton PA-C PCP - General Physician Civil Service Worker 02/13/18 documented as of this encounter
--- OUTSIDE RECORDS SUMMARY | 2024-05-03 20:40 | XMS_ITS | Encounter Summary ---
Author Organization [facility] Address [address] [place] [address] Care Team Providers Care Polygraph Examiner Name Role Phone Guerrero Middleton PA-C Primary Care Provide r Reason for Visit * Reason Onset Date Comments Medication Refill 09/20/2020 Encounter Details Date Type Department Care Team (Late st Contact Info) Description 09/20/2020 Refill [facility] Endocrinology [address] [place] [address] Prudence Gates MD [address] [place] [address] Social History Tobacco Use Types [...] often do you attend chur ch or evangelical services? Never 08/21/2018 Do you belong to [...] [facility] [address] [place] [phone] Marlys Mayer MD [address] [place] [address] documented as of this encounter Visit Diagnoses Not on filedocumented in this encounter Additional Health Concerns Assessment Noted Time PHQ-9 Depression Total Score: 1 08/11/19 21 6:30 PM CDT documented as of this encounter Care Teams Polygraph Examiner Relationship Specialty Start Date End Date Guerrero Middleton PA-C PCP - General Physician Music Engraver 02/13/18 documented as of this encounter
--- OUTSIDE RECORDS SUMMARY | 2024-05-03 20:40 | XMS_ITS | Encounter Summary ---
Author Organization [facility] Address [address] [place] [address] Care Team Providers Care Shake Backboard Notcher Name Role Phone Guerrero Middleton PA-C Primary Care Provide r Reason for Visit * Reason Comments Medication Refill Encounter Details Date Type Department Care Team (Late st Contact Info) Description 07/06/2020 Refill [facility] Endocrinology [address] [place] [address] Prudence Gates MD [address] [place] [address] Social History Tobacco Use Types Packs/Day Years [...] often do you attend chur ch or yazdanism services? Never 08/21/2018 Do you [...] COVID-19? No / Unsure 06/08/2020 9:32 AM SPRAY PILOT documented as of this encounter Miscellaneous Notes * Telephone Encounter - Sylvia France - 07/06/2020 8:14 AM CST Trisha:05/04/2020 Nov:09/15/2020 Y PILOT documented in this encounter Plan of Treatment Upcoming Encounters Date Type Department Care Team (Late st Contact Info) Description 09/14/2024 3:00 PM CDT Office Visit [facility] [id number] [place] [address] Marlys Mayer MD [address] [place] [address] documented as of this encounter Visit Diagnoses Not on filedocumented in this encounter Care Teams Shake Backboard Notcher Relationship Specialty Start Date End Date Guerrero Middleton PA-C PCP - General Physician Potato Seed Cutter 02/13/18 documented as of this encounter
--- OUTSIDE RECORDS SUMMARY | 2024-05-03 20:40 | XMS_ITS | Encounter Summary ---
Author Organization [facility] Address [address] [place] [address] Care Team Providers Care Solo Truck Driver Name Role Phone Guerrero Middleton PA-C Primary Care Provide r Reason for Visit * Reason Comments Abnormal Lab Results Here with complaint s of abnormal labs--reports triglycerides >4400. States has hx of this and does plasmapheresis for this, but schedule has been messed up due to covid. Did have tx today. * Auth/Cert Specialty Diagnoses / Procedures Referred By Tequila t Referred To Contact Emergency Medicine [facility] Emergency Dept [address] [place] [address] Referral ID Status Reason Start Date Expiration Date Visits Re quested Visits Authorized [id number] 1 1 Encounter Details Date Type Department Care Team (Latest Contact Info) Description 08/10/2020 3:20 PM CDT - 08/14/2020 2:59 PM CDT Hospital Encounter [facility] [address] [place] [address] Nano Galarza DO [address] [place] [address] Angie Louis MD [address] [facility] [address] [address] Parviz Jamil MD [address] [facility] [place] [address] Recurrent pancreatitis Discharge Disposition: Home or Self Care [...] often do you attend chur ch or rastafari services? Never 08/21/2018 Do you [...] Sign Reading Time Taken Comments Blood Pressure 104/72 08/14/2020 1:50 PM CDT Pulse 71 08/14/2020 1:50 PM CDT Temperature 36.6 ??C (97.8 ??F) 08/14/2020 11:38 AM C DT Respiratory Rate 11 08/14/2020 11:38 AM CDT Oxygen Saturation 97% 08/14/2020 1:50 PM CDT Inhaled Oxygen Concentration - - Weight 81.6 kg (180 lb) 08/10/2020 12:54 PM CDT Height 165.1 cm (5' 5 ) 08/10/2020 12:54 PM CDT Body Mass Index 29.95 08/10/2020 12:54 PM CDT documented in this encounter Discharge Summaries * Nano Galarza DO - 08/14/2020 2:27 PM CDT Images from the original note were not included. [facility] Adult Hospitalist Discharge Summary Casandra Doss 44 y.o. female 1975 CSN: [id number] Date of Admission: 08/10/2020 Date of Discharge: 08/14/2020 Discharging Physician: Nano Galarza DO LOS: 4 days PCP: Guerrero Middleton PA-C Activity: activity as tolerated. Dispo: home Diet: DIET DIABETIC Code Status at Discharge: Full Code Wound Care: None needed Admitting Dx: Recurrent pancreatitis Discharge Diagnoses: Active Hospital Problems Diagnosis ??? Acute on chronic pancreatitis ??? Acquired hypothyroidism ??? Recurrent pancreatitis ??? Tobacco use ??? Type 2 diabetes mellitus without complication, with long-term current use of insulin ??? Hypertriglyceridemia ??? Depression with anxiety ??? Chylomicronemia syndrome Resolved Hospital Problems Diagnosis Date Resolved ??? Upper abdominal pain, unspecified 08/14/2020 Discharge medications and new prescriptions: Medication List CHANGE how you take these medications fenofibrate 160 mg Tablet Commonly known as: LOFIBRA What changed: See the new instructions. TAKE 1 TABLET BY MOUTH EVERY DAY Signed by: Prudence Gates MD Quantity: 90 Tablet Refills: 1 CONTINUE taking these medications citalopram 40 mg tablet Commonly known as: CeleXA Take 40 mg by mouth daily at bedtime. Refills: 0 Dexcom G6 Sensor Device Change sensor every 10 days. (9 sensors = 90 days) Signed by: Prudence Gates MD Quantity: 9 Each Refills: 1 Generic drug: Blood-Glucose Sensor Dexcom G6 Transmitter Device Change transmitter every 90 days Signed by: Prudence Gates MD Quantity: 1 Each Refills: 1 Generic drug: Blood-Glucose Transmitter diphenhydrAMINE 25 mg tablet Commonly known as: BENADRYL Take 1 Tablet (25 mg) by mouth every 8 hours as needed for Itching. Signed by: Alber Rod MD Quantity: 16 Tablet Refills: 0 empagliflozin 25 mg tablet Commonly known as: JARDIANCE Take 1 tablet by mouth early in the morning. Signed by: Prudence Gates MD Quantity: 30 Tablet Refills: 6 Fish Oil-Bellaire-3 Fatty Acids 360-1,200 mg Capsule Take 2 Capsules by mouth 2 times daily with meals. Refills: 0 FreeStyle Torey 14 Day Sensor Kit 1 sensor every 14 days Signed by: Prudence Gates MD Quantity: 2 Kit Refills: 6 Generic drug: flash glucose sensor icosapent ethyL 1 gram Capsule Commonly known as: Vascepa Take 2 Capsules (2 Grams) by mouth 2 times daily with meals. The pt is on fenofibrate, crestor and her triglycerides >1000, history of pancreatitis Signed by: Prudence Gates MD Quantity: 360 Capsule Refills: 1 insulin aspart U-100 100 unit/mL pen syringe Commonly known as: NovoLOG Flexpen U-100 Insulin INJECT APPROXIMATELY 50 UNITS A DAY PER CORRECTION DOSE WITH MEALS Signed by: Prudence Gates MD Quantity: 45 mL Refills: 0 insulin glargine 100 unit/mL injection Commonly known as: LANTUS Inject 35 units SQ q am and 32 units qhs. Signed by: Prudence Gates MD Quantity: 30 mL Refills: 0 * levothyroxine 50 mcg tablet Commonly known as: SYNTHROID Take 1 Tablet (50 mcg) by mouth daily in the morning. Take along with 200 mcg tab =250 mcg daily Signed by: Prudence Gates MD Quantity: 90 Tablet Refills: 1 * levothyroxine 200 mcg tablet Commonly known as: SYNTHROID Take 1 Tablet (200 mcg) by mouth daily. Take along with 50 mcg tab =250 mcg total daily Dose change Signed by: Prudence Gates MD Quantity: 90 Tablet Refills: 0 LORazepam 1 mg tablet Commonly known as: ATIVAN Take 1 Tablet (1 mg) by mouth 2 times daily as needed for Anxiety. Signed by: Shira Cavanaugh MD Quantity: 60 Tablet Refills: 0 metFORMIN 500 mg tablet Commonly known as: GLUCOPHAGE Take 2 Tablets by mouth 2 times daily with meals. Signed by: Rosalia Thurman MD Quantity: 60 Tablet Refills: 0 ondansetron 4 mg Tablet, Rapid Dissolve Commonly known as: ZOFRAN ODT Dissolve 1 tablet on top of tongue, then swallow with saliva every 6 hours as needed for nausea/vomiting. Signed by: Wendie Desai MD Quantity: 30 Tablet Refills: 0 oxyCODONE 10 mg tablet Commonly known as: ROXICODONE Take 1 Tablet (10 mg) by mouth every 8 hours as needed for break-through pain. Max Daily Amount: 3 tablets Signed by: Alber Rod MD Quantity: 12 Tablet Refills: 0 pantoprazole 40 mg Tablet, [...] by mouth 2 times daily. Signed by: Prudence Gates MD Quantity: 60 Tablet Refills: 0 * !!Potential duplicate medications found. Review medication list carefully. Consultants: IP CONSULT TO PATHOLOGY Significant Diagnostic Studies This Admission: ?? CT abdomen IMPRESSION: ?? 1. No acute abnormality in the abdomen or pelvis. ?? 2. Resolution of peripancreatic inflammatory changes. Resolution of low-density focus in the pancreatic tail. Labs from this Hospitalization Needing Follow Up: ?? None Discharge Lab Data: Lab Results Component Value Date/Time WBC 6.2 08/14/2020 04:56 AM HEMOGLOBIN 11.0 (L) 08/14/2020 04:56 AM HEMATOCRIT 34.3 (L) 08/14/2020 04:56 AM PLATELETS 126 (L) 08/14/2020 04:56 AM SODIUM 139 08/14/2020 04:56 AM CHLORIDE 107 08/14/2020 04:56 AM POTASSIUM 3.6 08/14/2020 04:56 AM CO2 24 08/14/2020 04:56 AM BUN 7 08/14/2020 04:56 AM CREATININE 0.51 08/14/2020 04:56 AM GLUCOSE 96 08/14/2020 04:56 AM INR 0.8 (L) 07/10/2020 08:08 PM AST 22 08/10/2020 03:43 PM ALT 13 08/10/2020 03:43 PM CRP <3.0 07/10/2020 08:08 PM Discharge Exam: BP 104/72 (BP Location: Right arm, Patient Position (BP): Supine) Pulse 71 Temp 97.8 ??F (36.6 ??C) (Oral) Resp 11 Ht 5' 5 (1.651 m) Wt 81.6 kg (180 lb) SpO2 97% BMI 29.95 kg/m?? Physical Exam: General appearance alert, cooperative, no distress, appears stated age Lungs clear to auscultation bilaterally Heart regular rate and rhythm, S1, S2 normal, no murmur, click, rub or gallop Abdomen soft, non-tender. Bowel sounds normal. Extremities extremities normal, atraumatic, no cyanosis or edema Skin Skin color, texture, turgor normal. No rashes or lesions Hospital Course: ?? Ms. Doss is a 44 year old female with a history of familial hypertriglyceridemia, chylomicronemia, recurrent pancreatitis, IDDM, recurrent abdominal pain, multiple hospitalizations last one 07/10-07/12. She presented to the ED with abdominal pain. Patient had plasmapheresis today and as her TG were very high another treatment is planned fo tomorrow but she presented to the ED due to the pain. Chylomicronemia syndrome Hypertriglyceridemia Recurrent pancreatitis Acute on chronic pancreatitis Upper abdominal pain, unspecified -h/o recurrent pancreatitis from high triglycerides requiring plasmapheresis -received plasmapheresis daily while here -was in TCU on insulin drip for a short period as well to help the triglycerides -will continue with outpatient follow up with Dr. Arteaga for routine plasmaphersis -continue statin, lofibra, vascepa ?? Depression with anxiety -continue celexa, ativan, trazodone ?? Tobacco use -cessation advised ?? Type 2 diabetes mellitus without complication, with long-term current use of insulin -patient required less insulin during admission compared to what she uses at home. Counseled her onusing reduced dose of insulin over the next 2-3 days and then increasing back to prior home dose ?? Acquired hypothyroidism -levothyroxine Nutritional status and in-house recommendations: Current Diet and/or Nutritional Supplementation ordered: DIET DIABETIC Discharge Condition: improving. Follow-up: Guerrero Middleton PA-C in 1 week. More than 30 minutes were spent in this discharge activity. Signed: Nano Galarza DO 08/14/2020, 2:50 PM documented in this encounter Discharge Instructions * Discharge Instructions* Nano Galarza DO - 08/14/2020 2:27 PM CDT Continue normal follow up with Dr. Arteaga as previously arranged. See your primary care doctor within a week of discharge For the first few days upon returning home take a reduced dose of the lantus - try for 20 units twice daily. Once you start eating more like normal you can resume your prior dosing documented in this encounter Medications at Time [...] 90 days 1 Each 1 05/16/2020 12/26/2023 levothyroxine 50 mcg tabletIndications:Acq uired [...] as of this encounter Progress Notes * Loki Vences MD - 08/13/2020 10:02 PM CDT [facility] 08/13/20 10:02 PM Contacted for: Pt itching all over, no rash noted. benadryl 25mg PO given at 2010 with no relief. Is there anything else that can be given? Vitals: 08/13/20 1239 08/13/20 1311 08/13/20 1615 08/13/20 1900 Temp: 98.5 ??F (36.9 ??C) 98.4 ??F (36.9 ??C) 97.9 ??F (36.6 ??C) 97.8 ??F (36.6 ??C) Pulse: 71 75 82 87 Heart Rate: 85 bpm 88 bpm BP: 106/69 113/74 117/71 116/68 Mean Arterial Pressure: 81 MM HG 87 MM HG 85 MM HG 80 MM HG Resp: SpO2: 97% 97% Intervention/Follow up/Discussion: Atarax x 1. Qtc acceptable, also on celexa. Loki Vences MD ADDENDUM Time: 08/14/20 6:26 AM Contacted for: Pt on insulin drip for elevated triglycerides. Pt level triglycerides this am are 300s. Can the gtt be stopped and SSI be ordered? Intervention/Follow up/Discussion: Stop insulin gtt. BG 147, TG 305 from >1K previously. Start ACHS SSI. Loki Vences MD * Katia Lima RN - 08/13/2020 6:43 PM CDT UNDRESS AND ASSESS FOR ALL ADMISSIONS AND TRANSFERS: Remove all existing dressings and assess all wounds upon admission (unless instructed by physician). Undress and Assess performed by: bedside coworker CLAU Montalvo and bedside coworker PHOEBE Maxwell. upon transfer to [facility]. Chin Score: Chin Score: 21 (08/13/20 1615) 1. Patient does not have skin breakdown. ??? If yes o Description of wound location and appearance: o LDA added for any open areas and for non-blanching pink/red or purple areas? No (please note, heels, ankles, knees, hips, sacrum, coccyx, ischium, gluteal, occiput, spine and all skin folds are high risk for skin breakdown) and consult wound care services 2. Was wound photographed: No 3. Is a specialty support surface utilized? No If yes, which one?: i.e. impaired mobility, bariatric, malnourished, existing pressure injury. 4. Is the patient a paraplegic/quadriplegic? No If so, if stable spine immediately place on specialty surface. If unstable spine or new spinal injury, consult physician (per facility process) and consult wound care services. 5. Is a medical microbiologist in place?no If yes, remove device/brace/splint to [...] etc.). Wound care consult was not initiated. [facility] Skin Care Injury Prevention and Treatment Protocol [facility] Approved by: [facility] - Medical Executive Committee Approval Date: 05/14/2019 [...] found in the Wound Care Algorithm. * Elke Rockwell RN - 08/13/2020 4:00 PM CDT Pt transferred to [facility] via transport in wheelchair; pt alert and oriented, no change in initialassessment, with pt, transferred with all personal belongings, report called to Katia OLGUIN; pttransported d/t change in POC and medication requirements * Robyn Hernandez RN - 08/13/2020 1:29 PM CDT Plasma Exchange #3 Completed using R and L chest Apheresis ports. 1.0 Volume, 100% fluid balance using 5% Albumin as replacement fluid. Pt tolerated well. Next procedure will be tomorrow if Triglyceride level remains above 500. * Nano Galarza DO - 08/13/2020 12:39 PM CDT [facility] Adult Hospitalist Progress Note Admit Date: 08/10/2020 Date of Note: 08/13/2020, 12:39 PM LOS: 3 days Previous history of present illness and review of systems have been reviewed today as documented inthe H&P on 08/10/2020; medications, labs, studies, notes, orders and consults have been reviewed. I have reviewed the notes from admission. Subjective: Doing okay this morning. Resting in bed watching TV. Triglycerides slightly higher this morning Objective: BP 114/71 (BP Location: Left arm, Patient Position (BP): Supine) Pulse 72 Temp 98.6 ??F (37 ??C) (Oral) Resp 16 Ht 5' 5 (1.651 m) Wt 81.6 kg (180 lb) SpO2 96% BMI 29.95 kg/m?? Temp (24hrs), Av.1 ??F (36.7 ??C), Min:97.8 ??F (36.6 ??C), Max:98.6 ??F (37 ??C) Exam: General: Alert, no distress. Heart: Regular rate and rhythm, S1, S2 normal Lungs: Clear to auscultation bilaterally Abdomen: Soft, non-tender. Bowel sounds normal Extremities: No clubbing, cyanosis or edema Skin: Skin color, texture, turgor normal. Head: Normocephalic, atraumatic Neck: Supple, symmetrical Neuro: Normal strength Data Base: I have reviewed all new labs and studies resulted and pertinent ones are noted below Assessment/Plan of Actively Managed Problems Chylomicronemia syndrome Hypertriglyceridemia Recurrent pancreatitis Acute on chronic pancreatitis Upper abdominal pain, unspecified -h/o recurrent pancreatitis from high triglycerides requiring plasmapheresis -zofran PRN -dilaudid PRN -plasmapheresis daily until triglycerides <500. Level slightly higher today. Transfer to TCU andstart insulin drip for high triglycerides. Reviewed prior admissions and she is commonly put on insulin drip for this condition -check triglycerides q12h while on insulin drip -once level <500 can stop drip and stop plasmapheresis -Dr. Arteaga onboard, appreciate assistance with plasmapheresis -continue statin, lofibra, vascepa Depression with anxiety -continue celexa, ativan, trazodone Tobacco use -cessation advised Type 2 diabetes mellitus without complication, with long-term current use of insulin -holding home oral medications -hyperglycemia pathway -insulin drip for now, transition to subcutaneous once triglyceride level improved Acquired hypothyroidism -levothyroxine Nutrition: Current Diet and/or Nutritional Supplementation ordered: DIET DIABETIC DVT Prophylaxis - Heparin Pettit catheter:absent Lines: Peripheral IV PT POC OT POC Activity Order: Present Activity: up ad gaudencio (08/13/20 0926) Current Code Status -Full Code Plan discussed with patient, questions answered. Current Planned Disposition - Inpatient monitoring Nano Galarza DO * Alize Arteaga MD - 08/12/2020 1:40 PM CDT CC: ??44??yo female admitted for evaluation and management of severe abdominal pain in setting of??recurrent hypertriglyceridemic necrotizing pancreatitis requires??plasma exchange. ?? Interval history:??Patient feeling slightly better than yesterday. Patient??went to ED to be admitted after plasma exchange on 08/10/20.??She has nausea, vomiting, abdominal pain and headache. Has been taking diabetes medications. Patient feels she may have gotten behind on apheresis due to spacing out procedures around COVID vaccinations. ?? PMH: ??Hypertriglyceridemia (associated with prior episodes of pancreatitis, received inpatient plasma exchanges 04/2018, 07/2018 and 09/2018, started on prophylactic exchanges??10/2018, one port removedfrom R chest and new port placed in L chest 02/18/2019, on outpatient maintenance after that. ??Admission for pancreatitis requiring apheresis 05/2020 and 06/2020), DM, anxiety, GERG, HLD, hypothyroidism, PCOS ?? Meds: as per EPIC. ?? Exam: ?? General Appearance: - Well nourished -??Resting comfortably in bed Eyes: - No scleral icterus Neck: - No masses, symmetrical Cardiac: - No lower extremity edema Skin: - Inspection: No rashes evident - R??and L??chest port sites??well healed with pink scar Respiratory: - Unlabored breathing ?Labs: 08/12/20 WBC 7.4, hemoglobin 13.0, hematocrit 39.1, platelets 161, triglycerides 1,725 ? A&P: 1. 44??yo female with severe abdominal pain in the setting of??recurrent??hypertriglyceridemic pancreatitis requires??plasma exchange. Patient has??recurrent necrotizing pancreatitis??and was??initiated on prophylactic plasma exchange for prevention of hypertriglyceridemic pancreatitis starting 11/12/18??in consultation with Drs. Rudd and Moreno.??(ASFA category III indication for apheresis).??Patient now follows with Dr. Gates with endocrine. 2. ??We will perform a 1.0 volume plasma exchange with all albumin replacement with 100% fluid balance with 2 g calcium gluconate over the procedure. Given patient's hypotension, we will give a 500 mL normal saline bolus prior to starting the procedure. We will do daily plasma exchange until triglycerides are less than 500. ? I have seen and examined the patient, reviewed pertinent notes and records, and remained immediately available throughout the procedure. ?? Alize Arteaga MD, PhD [employer], therapeutic apheresis service [phone] ?? Procedure??notes:?L and??R bard ports??used for procedure. ??Patient tolerated procedure well.?? * Puja Paz RN - 08/12/2020 11:21 AM CDT Plasma exchange # 2 completed using R/L bard ports. 1.0 volume, 100% fluid balance using 5% albuminas replacement fluid. Pt tolerated the procedure well. * Nano Galarza, DO - 08/12/2020 10:52 AM CDT [facility] Adult Hospitalist Progress Note Admit Date: 08/10/2020 Date of Note: 08/12/2020, 10:52 AM LOS: 2 days Previous history of present illness and review of systems have been reviewed today as documented inthe H&P on 08/10/2020; medications, labs, studies, notes, orders and consults have been reviewed. I have reviewed the notes from admission. Subjective: No new concerns. Abdominal pain about the same. Objective: BP 103/68 (BP Location: Left arm, Patient Position (BP): Supine) Pulse 83 Temp 98.1 ??F (36.7 ??C) (Oral) Resp 18 Ht 5' 5 (1.651 m) Wt 81.6 kg (180 lb) SpO2 97% BMI 29.95 kg/m?? Temp (24hrs), Av.1 ??F (36.7 ??C), Min:97.7 ??F (36.5 ??C), Max:98.5 ??F (36.9 ??C) Exam: General: Alert, no distress. Heart: Regular rate and rhythm, S1, S2 normal Lungs: Clear to auscultation bilaterally Abdomen: Soft, non-tender. Bowel sounds normal Extremities: No clubbing, cyanosis or edema Skin: Skin color, texture, turgor normal. Head: Normocephalic, atraumatic Neck: Supple, symmetrical Neuro: Normal strength Data Base: I have reviewed all new labs and studies resulted and pertinent ones are noted below Assessment/Plan of Actively Managed Problems Chylomicronemia syndrome Hypertriglyceridemia Recurrent pancreatitis Acute on chronic pancreatitis Upper abdominal pain, unspecified -overnight notes reviewed -h/o recurrent pancreatitis from high triglycerides requiring plasmapheresis -advance as tolerated -zofran PRN -dilaudid PRN -plasmapheresis daily until triglycerides <500. Level ~1700 today -Dr. Arteaga onboard -continue statin, lofibra, vascepa Depression with anxiety -continue celexa, ativan, trazodone Tobacco use -cessation advised Type 2 diabetes mellitus without complication, with long-term current use of insulin -holding home oral medications -hyperglycemia pathway -reduce dose of home insulin regimen Acquired hypothyroidism -levothyroxine Nutrition: Current Diet and/or Nutritional Supplementation ordered: DIET DIABETIC DVT Prophylaxis - Heparin Pettit catheter:absent Lines: Peripheral IV PT POC OT POC Activity Order: Present Activity: in bed (08/12/20 0700) Current Code Status -Full Code Plan discussed with patient, questions answered. Current Planned Disposition - Inpatient monitoring Nano Galarza DO * Yamil Brody RN - 08/11/2020 6:00 PM CDT Pt resting in bed throughout the day. Refused breakfast meal and had a hypoglycemic event at lunch,protocol followed. Pt c/o 6-11/05 pain throughout the shift, pain meds given per MAR, assessment perflowsheet. Pt up independently in the room. Will continue to monitor and give report to oncoming nurse. * Alize Arteaga MD - 08/11/2020 4:48 PM CDT CC: ??44??yo female admitted for evaluation and management of severe abdominal pain in setting of??recurrent hypertriglyceridemic necrotizing pancreatitis requires??plasma exchange. ?? Interval history:??Patient??feels terrible went to ED to be admitted after plasma exchange on 08/10/20. She has nausea, vomiting, abdominal pain and headache. Has been taking diabetes medications. Patient feels she may have gotten behind on apheresis due to spacing out procedures around [employer]. ?? PMH: ??Hypertriglyceridemia (associated with prior episodes [...] and Oriented x??4 - Normal Affect ?Labs: 08/10/20 WBC 11.4, hemoglobin 15.9, hematocrit 44.5, platelets 226, triglycerides 2,222 A&P: 1. 44??yo female with severe abdominal pain in the setting of??recurrent??hypertriglyceridemic pancreatitis requires??plasma exchange. Patient has??recurrent necrotizing pancreatitis??and was??initiated on prophylactic plasma exchange for prevention of hypertriglyceridemic pancreatitis starting 11/12/18??in consultation with Drs. Rudd and Moreno.??(ASFA category III indication for apheresis).??Patient now follows with Dr. Gates with endocrine. 2. ??We will perform a 1.0 volume plasma exchange with all albumin replacement with 100% fluid balance with 2 g calcium gluconate over the procedure. Given patient's hypotension, we will give a 500 mL normal saline bolus prior to starting the procedure. We will do daily plasma exchange until triglycerides are less than 500. ?? I have seen and examined the patient, reviewed pertinent notes and records, and remained immediately available throughout the procedure. ?? Alize Arteaga MD, PhD [employer], therapeutic apheresis service [phone] ?? Procedure??notes:?L and??R bard ports??used for procedure. ??Patient tolerated procedure well.?? * Sharri Juarez RN - 08/11/2020 4:15 PM CDT Plasma exchange completed today using R and L chest BARD ports for draw and return. Used 5% Albuminas replacement fluid for a 1.0 volume exchange with a 100% fluid balance. 500 mL normal saline bolus given pre-procedure. Patient tolerated the procedure well. * Nano Galarza, DO - 08/11/2020 1:17 PM CDT [facility] Adult Hospitalist Progress Note Admit Date: 08/10/2020 Date of Note: 08/11/2020, 1:17 PM LOS: 1 day Previous history of present illness and review of systems have been reviewed today as documented inthe H&P on 08/10/2020; medications, labs, studies, notes, orders and consults have been reviewed. I have reviewed the notes from admission. Subjective: Doing okay this morning. Abdominal pain a little better Objective: BP 100/59 (BP Location: Right arm, Patient Position (BP): Supine) Pulse 70 Temp 98.1 ??F (36.7 ??C) (Oral) Resp 19 Ht 5' 5 (1.651 m) Wt 81.6 kg (180 lb) SpO2 92% BMI 29.95 kg/m?? Temp(24hrs), Av ??F (36.7 ??C), Min:97.8 ??F (36.6 ??C), Max:98.1 ??F (36.7 ??C) Exam: General: Alert, no distress. Heart: Regular rate and rhythm, S1, S2 normal Lungs: Clear to auscultation bilaterally Abdomen: Soft, non-tender. Bowel sounds normal Extremities: No clubbing, cyanosis or edema Skin: Skin color, texture, turgor normal. Head: Normocephalic, atraumatic Neck: Supple, symmetrical Neuro: Normal strength Data Base: I have reviewed all new labs and studies resulted and pertinent ones are noted below Assessment/Plan of Actively Managed Problems Chylomicronemia syndrome Hypertriglyceridemia Recurrent pancreatitis Acute on chronic pancreatitis Upper abdominal pain, unspecified -overnight notes reviewed -h/o recurrent pancreatitis from high triglycerides requiring plasmapheresis -continue clear liquid diet and advance as tolerated -zofran PRN -dilaudid PRN -plasmapheresis daily until triglycerides <500 -Dr. Arteaga onboard -continue statin, lofibra, vascepa -IVF Depression with anxiety -continue celexa, ativan, trazodone Tobacco use -cessation advised Type 2 diabetes mellitus without complication, with long-term current use of insulin -holding home oral medications -hyperglycemia pathway -reduce dose of home insulin regimen Acquired hypothyroidism -levothyroxine Nutrition: Current Diet and/or Nutritional Supplementation ordered: DIET CLEAR LIQUID Diabetic: Diabetic, DVT Prophylaxis - Heparin Pettit catheter:absent Lines: Peripheral IV PT POC OT POC Activity Order: Present Activity: in bed (08/11/20 0900) Current Code Status -Full Code Plan discussed with patient, questions answered. Current Planned Disposition - Inpatient monitoring Nano Galarza DO * Dick King MD - 08/10/2020 11:39 PM CDT [facility]10/20 11:40 PM Contacted for: Nausea unrelieved with PO zofran; patient is requesting IV zofran if possible Vitals: 08/10/20 1700 08/10/20 1808 08/10/20 1917 08/10/20 2329 Temp: 98.1 ??F (36.7 ??C) 97.9 ??F (36.6 ??C) 97.8 ??F (36.6 ??C) Pulse: 95 87 71 82 Heart Rate: 94 bpm BP: 102/71 109/70 98/55 99/49 Mean Arterial Pressure: 78 MM HG 81 MM HG 66 MM HG 64 MM HG Resp: 16 17 18 18 SpO2: 97% 97% 95% Intervention/Follow up/Discussion: Chart reviewed. Admitted for abdominal pain N/V. H/o pancreatitis. Plan - Add Reglan 10 mg IV q6H PRN. Dick Stephen MD * Yamil Brody RN - 08/10/2020 6:58 PM CDT Pt arrived on the unit at approx 1815, a/o x 4, on room air, c/o abdominal pain 11/05, medicated perMAR, VSS, Will continue to monitor and give report to oncoming nurse. documented in this encounter H&P Notes * Angie Louis MD - 08/10/2020 5:02 PM CDT [facility] Hospitalist H&P Patient Name: Casandra Doss Copy to Primary Care Physician: Guerrero Middleton PA-C Date of Admission: 08/10/2020 Date of Service: 08/10/2020 Chief Complaint: abdominal pain HPI: Patient is a 44 y.o. female with pMH significant for familial hypertriglyceridemia, chylomicronemia, recurrent pancreatitis, IDDM, recurrent abdominal pain, multiple hospitalizations last one 07/10-07/12 who presents with worsened abdominal pain associated with nausea and vomiting since yesterday. Patient had plasmapheresis today and as her TG were very high another treatment is planned fo tomorrow. She denies fever or dysuria. D/W Dr. Jamil in ER Past Medical History: Past Medical History: Diagnosis [...] of left power flow port 05/11/2019 ??? NM ESOPHAGOGASTRODUODENOSCOPY TRANSORAL DIAGNOSTIC N/A 03/08/2018 ESOPHAGOGASTRODUODENOSCOPY performed by Ceasar Vega MD at [facility] Current Medications: Prior to Admission Medications Prescriptions Last Dose Informant Patient Reported? Taking? Dexcom G6 Sensor Device No No Sig: Change sensor every 10 days. (9 sensors = 90 days) Dexcom G6 Transmitter Device No No Sig: Change transmitter every 90 days Fish Oil-Bellaire-3 Fatty Acids 360-1,200 mg Capsule Yes No Sig: Take 2 Capsules by mouth 2 times daily with meals. LORazepam (ATIVAN) 1 mg tablet 08/09/2020 at Unknown time No Yes Sig: Take 1 Tablet (1 mg) by mouth 2 times daily as needed for Anxiety. citalopram (CeleXA) 40 mg tablet Yes No Sig: Take 40 mg by mouth daily at bedtime. diphenhydrAMINE (BENADRYL) 25 mg tablet Past Month at Unknown time No Yes Sig: Take 1 Tablet (25 mg) by mouth every 8 hours as needed for Itching. empagliflozin (JARDIANCE) 25 mg tablet No No Sig: Take 1 tablet by mouth early in the morning. fenofibrate (LOFIBRA) 160 mg Tablet No No Sig: TAKE 1 TABLET BY MOUTH EVERY DAY Patient taking differently: Take 160 mg by mouth daily. flash glucose sensor (FreeStyle Torey 14 Day Sensor) Kit No No Si sensor every 14 days icosapent ethyL (Vascepa) 1 gram Capsule No No Sig: Take 2 Capsules (2 Grams) by mouth 2 times daily with meals. The pt is on fenofibrate, crestorand her triglycerides >1000, history of pancreatitis insulin aspart U-100 (NovoLOG Flexpen U-100 Insulin) 100 unit/mL pen syringe No No Sig: INJECT APPROXIMATELY 50 UNITS A DAY PER CORRECTION DOSE WITH MEALS insulin glargine (LANTUS) 100 unit/mL injection No No Sig: Inject 35 units SQ q am and 32 units qhs. levothyroxine 200 mcg tablet No No Sig: Take 1 Tablet (200 mcg) by mouth daily. Take along with 50 mcg tab =250 mcg total daily Dose change levothyroxine 50 mcg tablet No No Sig: Take 1 Tablet (50 mcg) by mouth daily in the morning. Take along with 200 mcg tab =250 mcg daily metFORMIN (GLUCOPHAGE) 500 mg tablet No No Sig: Take 2 Tablets by mouth 2 times daily with meals. ondansetron (ZOFRAN ODT) 4 mg Tablet, Rapid Dissolve > Month at Unknown time No No Sig: Dissolve 1 tablet on top of tongue, then swallow with saliva every 6 hours as needed for nausea/vomiting. oxyCODONE (ROXICODONE) 10 mg tablet No No Sig: Take 1 Tablet (10 mg) by mouth every 8 hours as needed for break-through pain. Max Daily Amount: 3 tablets pantoprazole (PROTONIX) 40 mg Tablet, Delayed Release [...] mouth 2 times daily. Facility-Administered Medications: None Medication Allergies: Allergies Allergen Reactions ??? Adhesive Tape-Silicones Hives ??? Green Pepper Hives ??? Adhesive Unknown ??? Aspartame Headache Family History: Family History Problem Relation Name [...] Substance Use Topics ??? Alcohol use: No Review of Systems History from the patient General negative for weight changes, fever HEENT Denies headaches, blurry vision, Hearing loss, Tinnitus, Lightheadedness, Nasal discharges, dysphagia Heme/Lymph negative for swollen glands or abnormal bleeding Endocrine negative for polyuria/polydipsia or new changes in weight CV negative for chest pain or dyspnea on exertion Respiratory negative for cough, shortness of breath, or wheezing GI see HPI negative for dysuria, trouble voiding, or hematuria MS negative for back pain, neck pain or joint pain or swelling Neuro negative for TIA or stroke symptoms Psychiatric negative Derm negative for skin rashes or unusual skin lesions All Other ROS Negative Physical Exam: BP 98/55 (BP Location: Left arm, Patient Position (BP): Supine) Pulse 71 Temp 97.9 ??F (36.6 ??C) (Oral) Resp 18 Ht 5' 5 (1.651 m) Wt 81.6 kg (180 lb) SpO2 97% BMI 29.95 kg/m?? General appearance alert, cooperative, no distress Head Normocephalic, without obvious abnormality, atraumatic Eyes conjunctivae/corneas clear. PERRL, EOM's intact. Ears normal external ear canals Nose Nares normal. Mucosa normal. No drainage or sinus tenderness. Throat Lips, mucosa, and tongue normal. Neck supple, no adenopathy, no carotid bruit and no JVD Lungs clear to auscultation bilaterally Heart regular rate and rhythm, S1, S2 normal, no murmur, click, rub or gallop Abdomen soft, non-tender. Bowel sounds normal. No masses, No organomegaly Neurologic AAO X3, Cranial nerves 2 thru 12 grossly normal, non-focal exam Extremities extremities normal, atraumatic, no cyanosis or edema, warm Skin No rashes or lesions Data Base: CBC: Recent Labs 08/10/20 1543 WBC 11.4* HGB 15.9* HCT 44.5* PLT 226 MCV 89.4 BMP: Recent Labs 08/10/20 1543 NA 132* K 4.7 CL 98 CO2 21* ANIONGAP 13 CA 9.2 GLUCOSE 331* BUN 7 CREAT 0.57 OTHER LYTES:No results for input(s): MG, PO4 in the last 72 hours. AccuCheks: No results for input(s): GLUCPOC in the last 72 hours. LFTs: Recent Labs 08/10/20 1543 ALKPHOS 43 TOTALPROTEIN 6.1* BILITOTAL 0.3 ALBUMIN 4.5 ALT 13 AST 22 Lipase: 42 Imaging: ECG personally reviewed: ST, HR 105 Assessment/Plan: Assessment/Plan: Upper abdominal pain, unspecified/- h/o recurrent pancreatitis, occurs when TG not controlled. Plan: CLD advance diet as tolerated, Oxycodone prn and Dilaudid prn for pain control, Zodran prn for nausea, plasmapheresis again tomorrow Chylomicronemia syndrome/Hypertriglyceridemia, familial- continue statin/lofibra/vascepa, plasmapheresis tomorrow again per Dr. Arteaga- assistance appreciated Depression with anxiety- resume Celexa/Ativan prn/Trazodone Tobacco use- advised to quit, Nicole Type 2 diabetes mellitus without complication, with long-term current use of insulin- hold oral medications,s atrt hyperglycemia pathway with Lantus bid( 24+22), Humalog 4 units with meals and LD correctional AC+HS, hold oral mediciations Acquired hypothyroidism- resume Levothyroxine ??? DVT Prophlaxis: Heparin ??? Current Planned Disposition: home ??? Plan discussed with patient; questions answered; patient agrees with current plan. ??? Current Code Status: Full Code Angie Louis MD [facility] Hospitalist [phone] documented in this encounter ED Notes * Alize Nash RN - 08/10/2020 5:16 PM CDT This RN called [facility] and notified of patient ready bed * Alize Nash RN - 08/10/2020 4:57 PM CDT Hospitalist at bedside at this time * Alize Nash RN - 08/10/2020 3:51 PM CDT 44 yof arrives w/c/o elevated triglyceride levels. Pt reports hx of this and has plasmapheresis monthly. Pt had tx done today. Pt reports RUQ pain worse after tx. A&Ox4. Her respirations are even and non labored. She's speaking in full sentences with ease. SKin PWD. Patient placed on continuous pulse oximetry, cardiac monitoring, and intermittent blood pressures. * Parviz Jamil MD - 08/10/2020 12:52 PM CDT HISTORY OF PRESENT ILLNESS Casandra Doss, a 44 y.o. female presents to the ED with a Chief Complaint of Abnormal Lab Results Subjective Documented Triage Chief Complaint: Abnormal Lab Results 3:38 PM: Casandra Doss is a 44 y.o. female with a history of DM2, GERD, HLN, and hypertriglyceridemia who presents to the Emergency Department with complaints of abdominal pain and n/v. Patient has a history of recurrent hypertriglyceridemic pancreatitis requires prophylactic plasma exchange. Patient has recurrent necrotizing pancreatitis and was initiated on prophylactic plasma exchange for prevention of hypertriglyceridemic pancreatitis starting 11/12/18. Patient states that she has gotten behind on apheresis because of COVID vaccines. On 08/10/2020, pre-procedure triglycerides levels were >4,425. Patient was seen at her pathologists office for the plasma apheresis this morning for her significantly elevated triglycerides. She continued with abdominal pain and n/v so she was referred here for further evaluation and management. Pt denies diarrhea, fevers, chills, cough, chest pain, or any other new symptoms. Physician(s): Guerrero Middleton PA-C History provided by: The patient, a healthcare provider and medical records Arrived by: Private vehicle REVIEW OF SYSTEMS Review of Systems Constitutional: Negative for fever. HENT: Negative for trouble swallowing. Eyes: Negative for redness. Respiratory: Negative for cough. Cardiovascular: Negative for chest pain. Gastrointestinal: Positive for abdominal pain, nausea and vomiting. Endocrine: Negative for polydipsia. Genitourinary: Negative for frequency. Musculoskeletal: Negative for back pain and neck pain. Skin: Negative for rash. Allergic/Immunologic: Negative for immunocompromised state. Neurological: Negative for headaches. Hematological: Does not bruise/bleed easily. Psychiatric/Behavioral: Negative for dysphoric mood. PAST MEDICAL HISTORY REVIEWED MEDICAL: Patient has [...] active and has had partner(s) who are Male. She reports that she does not drink alcohol and does not use drugs. No history on file. Social History Other Topics Concern ??? Not on file ALLERGIES Adhesive tape-silicones, Green pepper, Adhesive, and Aspartame HOME MEDICATIONS Current Discharge Medication List CONTINUE these medications which have NOT CHANGED Details diphenhydrAMINE (BENADRYL) 25 mg tablet Take 1 Tablet (25 mg) by mouth every 8 hours as needed for Itching. Qty: 16 Tablet, Refills: 0 oxyCODONE (ROXICODONE) 10 mg tablet Take 1 Tablet (10 mg) by mouth every 8 hours as needed for break-through pain. Max Daily Amount: 3 tablets Qty: 12 Tablet, Refills: 0 Associated Diagnoses: Recurrent pancreatitis Fish Oil-Bellaire-3 Fatty Acids 360-1,200 mg Capsule Take 2 Capsules by mouth 2 times daily with meals. insulin aspart U-100 (NovoLOG Flexpen U-100 Insulin) 100 unit/mL pen syringe INJECT APPROXIMATELY 50 UNITS A DAY PER CORRECTION DOSE WITH MEALS Qty: 45 mL, Refills: 0 LORazepam (ATIVAN) 1 mg tablet Take 1 Tablet (1 mg) by mouth 2 times daily as needed for Anxiety. Qty: 60 Tablet, Refills: 0 Associated Diagnoses: Depression with anxiety fenofibrate (LOFIBRA) 160 mg Tablet TAKE 1 TABLET BY MOUTH EVERY DAY Qty: 90 Tablet, Refills: 1 Dexcom G6 Sensor Device Change sensor every 10 days. (9 sensors = 90 days) Qty: 9 Each, Refills: 1 Dexcom G6 Transmitter Device Change transmitter every 90 days Qty: 1 Each, Refills: 1 insulin glargine (LANTUS) 100 unit/mL injection Inject 35 units SQ q am and 32 units qhs. Qty: 30 mL, Refills: 0 !! levothyroxine 50 mcg tablet Take 1 Tablet (50 mcg) by mouth daily in the morning. Take along with 200 mcg tab =250 mcg daily Qty: 90 Tablet, Refills: 1 Associated Diagnoses: Acquired hypothyroidism !! levothyroxine 200 mcg tablet Take 1 Tablet (200 mcg) by mouth daily. Take along with 50 mcg tab =250 mcg total daily Dose change Qty: 90 Tablet, Refills: 0 Associated Diagnoses: Acquired hypothyroidism icosapent ethyL (Vascepa) 1 gram Capsule Take 2 Capsules (2 Grams) by mouth 2 times daily with meals. The pt is on fenofibrate, crestor and her triglycerides >1000, history of pancreatitis Qty: 360 Capsule, Refills: 1 empagliflozin (JARDIANCE) 25 mg tablet Take 1 tablet by mouth early in the morning. Qty: 30 Tablet, Refills: 6 varenicline (Chantix) 0.5 mg Tablet Take 1 Tablet (0.5 mg) by mouth 2 times daily. Qty: 60 Tablet, Refills: 0 flash glucose sensor (FreeStyle Torey 14 Day Sensor) Kit 1 sensor every 14 days Qty: 2 Kit, Refills: 6 metFORMIN (GLUCOPHAGE) 500 mg tablet Take 2 Tablets by mouth 2 times daily with meals. Qty: 60 Tablet, Refills: 0 ondansetron (ZOFRAN [...] 20 mg by mouth daily at bedtime. citalopram (CeleXA) 40 mg tablet Take 40 mg by mouth daily at bedtime. !! - Potential duplicate medications found. Please discuss with provider. Objective PHYSICAL EXAM INITIAL VS BP: 128/66 (08/10/20 1254), Heart Rate: 120 bpm (08/10/20 1254), Resp: 18 (08/10/20 1254), Pulse: 98 (08/10/20 1553), Temp: 98.9 ??F (37.2 ??C) (08/10/20 1254), Temp src: Oral (08/10/20 1254), SpO2: 97 % (08/10/20 1254), Height: 5' 5 (165.1 cm) (08/10/20 1254), Weight: 81.6 kg (180 lb) (08/10/20 1254), BMI (Calculated): 29.95 (08/10/20 1254) No LMP recorded. Patient has had a hysterectomy. Physical Exam Vitals and nursing note reviewed. Constitutional: Comments: Mildly obese white female HENT: Head: Normocephalic. Eyes: Pupils: Pupils are equal, round, and reactive to light. Cardiovascular: Rate and Rhythm: Normal rate and regular rhythm. Heart sounds: Normal heart sounds. Pulmonary: Effort: Pulmonary effort is normal. Breath sounds: Normal breath sounds. Abdominal: Palpations: Abdomen is soft. Comments: Slight generalized abdominal tenderness Musculoskeletal: General: Normal range of motion. Cervical back: Normal range of motion. Skin: General: Skin is warm. Neurological: Mental Status: She is alert and oriented to person, place, and time. DIAGNOSTICS LAB: CBC WITH DIFFERENTIAL - Abnormal Result Value WBC 11.4 (*) RBC 4.98 (*) HEMOGLOBIN 15.9 (*) HEMATOCRIT 44.5 (*) MCV 89.4 MCH 31.9 MCHC 35.7 (*) RDW 14.1 RDW-STDEV 45.9 PLATELETS 226 MPV 9.9 NEUTROPHILS 67 LYMPHOCYTES 25 MONOCYTES 5 EOSINOPHILS 1 BASOPHILS 1 IMMATURE GRANULOCYTES 1 NEUTROPHIL ABSOLUTE 7.67 (*) LYMPHOCYTE ABSOLUTE 2.85 MONOCYTE ABSOLUTE 0.60 EOSINOPHIL ABSOLUTE 0.11 BASOPHILS ABSOLUTE 0.07 IMMATURE GRANULOCYTES ABSOLUTE 0.14 (*) COMPREHENSIVE METABOLIC PANEL - Abnormal SODIUM 132 (*) POTASSIUM 4.7 CHLORIDE 98 CO2 21 (*) CALCIUM 9.2 BUN 7 CREATININE 0.57 GLUCOSE 331 (*) TOTAL PROTEIN 6.1 (*) ALBUMIN 4.5 BILIRUBIN TOTAL 0.3 ALKALINE PHOSPHATASE 43 AST 22 ALT 13 GFR >60 GFR, >60 ANION GAP 13 TRIGLYCERIDE - Abnormal TRIGLYCERIDE 2,425 (*) LIPASE - Normal LIPASE 42 RADIOLOGY: No orders to display EKG: Sinus tachycardia, rate 105, non specific ST Twave changes. PROCEDURES Procedures MEDICAL DECISION MAKING AND PLAN OF CARE --On initial evaluation, saw and examined patient. Discussed plan for labs, lipase, and EKG. Patient understands and agrees with the plan. 3:29 PM: Discussed the patient's medical history, history of present illness, and current findings with Dr Arteaga, pathologist. 4:37 PM: Rechecked patient. Updated patient on results, diagnosis, and plan for admission. The patient voiced clear understanding and agreed with the plan. All questions and concerns were addressed. 5:11 PM: Discussed with Dr. Means ([facility] Hospitalist) who will admit to inpatient floor. ED provider and ED nurse verbally discussed patient plan of care at this time. MDM Summary Statement: 44 year old female with history of recurrent hypertriglyceridemia requiring plasma apheresis who was receiving treatment this morning for elevated triglycerides. She continued with epigastric pain and was given IV fluids, Zofran, and fentanyl. She will be admitted for additional plasma apheresis inthe morning. I have reviewed previous: notes, ECG and labs I have reviewed current: labs and ECG I have reviewed nursing notes related to past medical history, social history, and review of systems and agree, unless otherwise noted. Consults: hospitalist and other Name of other provider: Susana Medications Administered During the ED Stay from 08/10/2020 1252 to 08/10/2020 1756 Date/Time Order Dose Route Action 08/10/2020 1657 sodium chloride 0.9% bolus solution 250 mL 0 mL IV Stopped 08/10/2020 1545 sodium chloride 0.9% bolus solution 250 mL 250 mL IV New Bag 08/10/2020 1545 ondansetron (ZOFRAN) 4 mg/2 mL injection 4 mg 4 mg IV Given 08/10/2020 1545 fentaNYL PF (SUBLIMAZE) 50 mcg/mL injection 100 mcg 100 mcg IV Given 08/10/2020 1700 morphine 4 mg/mL injection 4 mg 4 mg IV Given Current Discharge Medication List CONTINUE these medications which have NOT CHANGED Details diphenhydrAMINE (BENADRYL) 25 mg tablet Take 1 Tablet (25 mg) by mouth every 8 hours as needed for Itching. Qty: 16 Tablet, Refills: 0 oxyCODONE (ROXICODONE) 10 mg tablet Take 1 Tablet (10 mg) by mouth every 8 hours as needed for break-through pain. Max Daily Amount: 3 tablets Qty: 12 Tablet, Refills: 0 Associated Diagnoses: Recurrent pancreatitis Fish Oil-Bellaire-3 Fatty Acids 360-1,200 mg Capsule Take 2 Capsules by mouth 2 times daily with meals. insulin aspart U-100 (NovoLOG Flexpen U-100 Insulin) 100 unit/mL pen syringe INJECT APPROXIMATELY 50 UNITS A DAY PER CORRECTION DOSE WITH MEALS Qty: 45 mL, Refills: 0 LORazepam (ATIVAN) 1 mg tablet Take 1 Tablet (1 mg) by mouth 2 times daily as needed for Anxiety. Qty: 60 Tablet, Refills: 0 Associated Diagnoses: Depression with anxiety fenofibrate (LOFIBRA) 160 mg Tablet TAKE 1 TABLET BY MOUTH EVERY DAY Qty: 90 Tablet, Refills: 1 Dexcom G6 Sensor Device Change sensor every 10 days. (9 sensors = 90 days) Qty: 9 Each, Refills: 1 Dexcom G6 Transmitter Device Change transmitter every 90 days Qty: 1 Each, Refills: 1 insulin glargine (LANTUS) 100 unit/mL injection Inject 35 units SQ q am and 32 units qhs. Qty: 30 mL, Refills: 0 !! levothyroxine 50 mcg tablet Take 1 Tablet (50 mcg) by mouth daily in the morning. Take along with 200 mcg tab =250 mcg daily Qty: 90 Tablet, Refills: 1 Associated Diagnoses: Acquired hypothyroidism !! levothyroxine 200 mcg tablet Take 1 Tablet (200 mcg) by mouth daily. Take along with 50 mcg tab =250 mcg total daily Dose change Qty: 90 Tablet, Refills: 0 Associated Diagnoses: Acquired hypothyroidism icosapent ethyL (Vascepa) 1 gram Capsule Take 2 Capsules (2 Grams) by mouth 2 times daily with meals. The pt is on fenofibrate, crestor and her triglycerides >1000, history of pancreatitis Qty: 360 Capsule, Refills: 1 empagliflozin (JARDIANCE) 25 mg tablet Take 1 tablet by mouth early in the morning. Qty: 30 Tablet, Refills: 6 varenicline (Chantix) 0.5 mg Tablet Take 1 Tablet (0.5 mg) by mouth 2 times daily. Qty: 60 Tablet, Refills: 0 flash glucose sensor (FreeStyle Torey 14 Day Sensor) Kit 1 sensor every 14 days Qty: 2 Kit, Refills: 6 metFORMIN (GLUCOPHAGE) 500 mg tablet Take 2 Tablets by mouth 2 times daily with meals. Qty: 60 Tablet, Refills: 0 ondansetron (ZOFRAN [...] 20 mg by mouth daily at bedtime. citalopram (CeleXA) 40 mg tablet Take 40 mg by mouth daily at bedtime. !! - Potential duplicate medications found. Please discuss with provider. LAST VS BP: 102/71 (08/10/20 1700), Heart Rate: 94 bpm (08/10/20 1700), Resp: 16 (08/10/20 1700), Pulse: 95(08/10/20 1700), Temp: 98.9 ??F (37.2 ??C) (08/10/20 1254), Temp src: Oral (08/10/20 1254), SpO2: 97 % (08/10/20 1700) CLINICAL IMPRESSION Final diagnoses: [E78.1] Hypertriglyceridemia (Primary) [R10.10] Upper abdominal pain, unspecified [Z87.19] History of pancreatitis [Z92.89] History of plasmapheresis [E11.9, Z79.4] Type 2 diabetes mellitus without complication, with long-term current use of insulin [R11.2, R19.7] Nausea vomiting and diarrhea DISPOSITION, EDUCATION AND MEDICATION RECONCILIATION Medications reconciled. See after visit summary for patient education on discharged patients. ED Disposition ED Disposition Condition User Date/Time Comment Admit Stable Parviz Jamil MD Wed Aug 10, 2020 5:11 PM ATTESTATION STATEMENTS This note has been prepared by Pernell Story acting as a scribe for Dr. Parviz Jamil on 08/10/2020 at 6:04 PM. The scribe's documentation has been prepared under my direction and personally reviewed by me, Dr. Jamil, in its entirety on 08/10/20 at 6:05 PM. I confirm that the note above accurately reflects all work, treatment, procedures, and medical decision making performed by me. documented in this encounter Miscellaneous Notes * Care Plan - Elke Rockwell RN - 08/13/2020 9:26 AM CDT Problem: Pain, Potential/Actual Goal: Verbalizes/displays acceptable comfort level or baseline comfort level Description: Outcome: Progressing Problem: Infection Risk/Actual Goal: Infection Risk/Actual: Infection prevention, control, or resolution by discharge Description: Outcome: Progressing Problem: Safety/Fall Goal: Safety/Fall: Absence of fall, injury, harm during hospitalization Description: Outcome: Progressing Problem: Discharge Planning Goal: Identify discharge needs upon admission and through discharge Description: Outcome: Progressing Problem: Last Known Fall Goal: Absence of/Reduce Fall Risk during current hospitalization Description: Patient has a history of falls at home or in hospital within the past year. Potential Interventions: 1. Attempt to determine cause of recent falls - was it medication side effects, syncopal episode, etc - to try and predict future falls 2. Ensure that patient's baseline function is known and provide appropriate mobility aids for use in hospital 3. Consider whether patient is safe to ambulate to bathroom with assistance or should use a bedsidecommode or bedpan 4. Get order for therapy evaluation if appropriate 5. Activate bed or chair alarm while in bed or up in chair Outcome: Progressing Problem: Medications Goal: Absence of/Reduce Fall Risk r/t Medications Description: Patient is a fall risk because of medications (i.e. - BP meds, CV/MARKLOGIC DEVELOPER meds, seizure meds, diuretics, pain meds, psych [...] and vomiting as needed Outcome: Progressing Problem: Nutrition/Endocrine Goal: Achieve optimal nutrition and fluid status to meet metabolic needs throughout hospitalization Outcome: Progressing Problem: Skin Goal: Maintain skin integrity and/or promote wound healing by discharge Outcome: Progressing Problem: Coping (Adult) Goal: Demonstrates effective coping mechanisms and psychosocial functioning throughout hospitalization Outcome: Progressing Problem: Gastrointestinal Goal: Achieve optimal gastrointestinal function by discharge or maintain baseline function Outcome: Progressing Problem: Mobility Goal: Absence of/Reduce [...] changes if patient experiencing dizziness Outcome: Progressing * Care Plan - Yumiko Duron RN - 08/13/2020 5:53 AM CDT Pt AOx4, vss, on room air. Up independently to bathroom. Does have complaints of abdominal pain relieved with oxy per Jun. Pt slept quietly between care. * Care Plan - Amalia Galindo RN - 08/12/2020 6:33 PM CDT Casandra is A&Ox4. Slept most of this shift following plasma exchange. Pain well controlled with PRN medications. C/o nausea, relieved by PRN reglan. Blood sugars controlled with SSI. No concerns. * Care Plan - Yumiko Duron RN - 08/12/2020 5:54 AM CDT Pt AOx4, vss, on room air. Up independently. Did have complaints of abdominal pain, relieved with oxy per MAR. Slept quietly between care. * Care Plan - Aura Baltazar MSW - 08/11/2020 1:39 PM CDT Clinical documentation reviewed. Comprehensive Discharge Planning Risk Assessment was completed. Readmission Risk (patient becomes high risk with a score of 8 or greater) 5 File score (Last filed: Aug 11, 2020 0601) 5 Prior Hospitalizations Total Score of 9 or below does not identify immediate needs for discharge. Age Score: 0 Disability Score: 0 Prior Living Status Score: {0 Mobility Limitation Score: 0 TOTAL SCORE: [address] consult if needs for discharge are identified. Discussed during TEMPO and chart reviewed. No dc needs identified. Plan home with family. Care Management will continue to follow for discharge planning. LOBO [facility] Day 1 - Current ([place] [facility]: Adult and Obstetrics) Patient, family, or healthcare designee is participating in individual care plan process Outcome: Met Problem: Discharge Planning Goal: Identify discharge needs upon admission and through discharge Description: Outcome: Progressing * Care Plan - Yamil Brody RN - 08/11/2020 12:39 PM CDT Problem: Pain, Potential/Actual Goal: Verbalizes/displays acceptable comfort level or baseline comfort level Description: Outcome: Variance Problem: Safety/Fall Goal: Safety/Fall: Absence of fall, injury, harm during hospitalization Description: Outcome: Variance Problem: Last Known Fall Goal: Absence of/Reduce Fall Risk during current hospitalization Description: Patient has a history of falls at home or in hospital within the past year. Potential Interventions: 1. Attempt to determine cause of recent falls - was it medication side effects, syncopal episode, etc - to try and predict future falls 2. Ensure that patient's baseline function is known and provide appropriate mobility aids for use in hospital 3. Consider whether patient is safe to ambulate to bathroom with assistance or should use a bedsidecommode or bedpan 4. Get order for therapy evaluation if appropriate 5. Activate bed or chair alarm while in bed or up in chair Outcome: Variance Problem: Volume/Electrolyte Status Goal: Absence of/Reduce Fall [...] for nausea and vomiting as needed Outcome: Variance Problem: Nutrition/Endocrine Goal: Achieve optimal nutrition and fluid status to meet metabolic needs throughout hospitalization Outcome: Variance Problem: Coping (Adult) Goal: Demonstrates effective coping mechanisms and psychosocial functioning throughout hospitalization Outcome: Variance * Care Plan - Teressa Hsieh RN - 08/11/2020 4:44 AM CDT No acute events overnight. Patient had an turkish ice for dinner but did not tolerate it well; had nausea and abdominal pain, controlled with oxy, dilaudid, and reglan. VSS on room air with soft blood pressures. documented in this encounter Plan of Treatment Upcoming Encounters Date Type Department Care Team (Late st Contact Info) Description 09/14/2024 3:00 PM CDT Office Visit [facility] [address] [place] [address] Marlys Mayer MD [address] [place] [address] documented as of this encounter Procedures Procedure Name Priority Date/Time Associated Diagnosis Comments POC GLUCOSE Routine 08/14/2020 2:02 PM CDT POC GLUCOSE Routine 08/14/2020 9:54 AM CDT POC GLUCOSE Routine 08/14/2020 6:03 AM CDT CBC WITHOUT DIFFERENTIAL Routine 08/14/2020 4:56 AM CDT TRIGLYCERIDE Routine 08/14/2020 4:56 AM CDT BASIC METABOLIC PANEL Routine 08/14/2020 4:56 AM CDT POC GLUCOSE Routine 08/14/2020 4:52 AM CDT POC GLUCOSE Routine 08/14/2020 3:47 AM CDT POC GLUCOSE Routine 08/14/2020 3:10 AM CDT POC GLUCOSE Routine 08/14/2020 1:55 AM CDT POC GLUCOSE Routine 08/14/2020 1:00 AM CDT POC GLUCOSE Routine 08/13/2020 11:59 PM CDT POC GLUCOSE Routine 08/13/2020 10:57 PM CDT POC GLUCOSE Routine 08/13/2020 10:18 PM CDT POC GLUCOSE Routine 08/13/2020 9:08 PM CDT POC GLUCOSE Routine 08/13/2020 7:57 PM CDT POC GLUCOSE Routine 08/13/2020 7:03 PM CDT POC GLUCOSE Routine 08/13/2020 5:57 PM CDT TRIGLYCERIDE Routine 08/13/2020 5:38 PM CDT POC GLUCOSE Routine 08/13/2020 4:31 PM CDT POC GLUCOSE Routine 08/13/2020 1:18 PM CDT POC GLUCOSE Routine 08/13/2020 8:58 AM CDT TRIGLYCERIDE Routine 08/13/2020 7:30 AM CDT POC GLUCOSE Routine 08/12/2020 10:15 PM CDT POC GLUCOSE Routine 08/12/2020 6:08 PM CDT POC GLUCOSE Routine 08/12/2020 12:59 PM CDT POC GLUCOSE Routine 08/12/2020 9:36 AM CDT CBC WITHOUT DIFFERENTIAL Routine 08/12/2020 7:06 AM CDT TRIGLYCERIDE Routine 08/12/2020 7:05 AM CDT BASIC METABOLIC PANEL Routine 08/12/2020 7:05 AM CDT POC GLUCOSE Routine 08/11/2020 10:04 PM CDT POC GLUCOSE Routine 08/11/2020 6:09 PM CDT POC GLUCOSE Routine 08/11/2020 1:46 PM CDT POC GLUCOSE Routine 08/11/2020 1:26 PM CDT POC GLUCOSE Routine 08/11/2020 1:12 PM CDT POC GLUCOSE Routine 08/11/2020 1:09 PM CDT TRIGLYCERIDE Stat 08/11/2020 10:39 AM CDT Hypertriglyceridem ia POC GLUCOSE Routine 08/11/2020 9:17 AM CDT POC GLUCOSE Routine 08/10/2020 9:55 PM CDT CBC WITH DIFFERENTIAL Stat 08/10/2020 3:43 PM CDT TRIGLYCERIDE Stat 08/10/2020 3:43 PM CDT LIPASE Stat 08/10/2020 3:43 PM CDT COMPREHENSIVE METABOLIC PANEL Stat 08/10/2020 3:43 PM CDT EKG 12-LEAD Stat 08/10/2020 1:10 PM CDT documented in this encounter Results * (ABNORMAL) POC GLUCOSE (08/14/2020 2:02 PM CDT) GLUCOSE POC 165(H) 74 - 99 mg/dL 08/14/2020 2:02 PM CDT [facility] LABORATORY [facility] ESTIMATOR PRINTING NAME KATIA COSME 08/14/2020 2:02 PM CDT [facility] Blood, whole 08/14/2020 2:02 PM CDT 08/14/2020 2:12 PM CDT Nano Galarza DO POINT OF CARE TESTIN G [facility] LAB[facility]ORY [facility]# [id number] [address] [facility] [place] [address] * (ABNORMAL) POC GLUCOSE (08/14/2020 9:54 AM CDT) GLUCOSE POC 142(H) 74 - 99 mg/dL 08/14/2020 9:54 AM CDT [facility] ESTIMATOR PRINTING NAME KATIA COSME 08/14/2020 9:54 AM CDT [facility] Blood, whole 08/14/2020 9:54 AM CDT 08/14/2020 10:06 AM CDT Nano Galarza DO POINT OF CARE TESTIN G Performing Organization Address [facility]/ZIP Co de Phone Number [facility] [place] [facility]# [id number] [address] [place] [address] * (ABNORMAL) POC GLUCOSE (08/14/2020 6:03 AM CDT) GLUCOSE POC 147(H) 74 - 99 mg/dL 08/14/2020 6:03 AM CDT [facility] COMMENT, GLU POC Notified RN/MD 08/14/2020 6:03 AM CDT [facility] ESTIMATOR PRINTING NAME POC IVETT TABOR Brittni 08/14/2020 6:03 AM CDT [facility] Blood, whole 08/14/2020 6:03 AM CDT 08/14/2020 6:11 AM CDT Nano Galarza DO POINT OF CARE TESTJERONIMO G Performing Organization Address [facility] Co de Phone Number [facility] [place] [facility]# [id number] [address] [place] [address] * (ABNORMAL) TRIGLYCERIDE (08/14/2020 4:56 AM CDT) TRIGLYCERIDE 305(H) <150 mg/dL 08/14/2020 5:46 AM CDT [facility] [place] [facility] Blood Venipuncture / Unknown 08/14/2020 4:56 AM CDT 08/14/2020 5:05 AM CDT Narrative [facility] - 08/14/2020 5:46 AM CDT TRIGLYCERIDES ? mg/dL Normal ?< 150 Borderline High ?150 - 199 High ? 200 - 499 Very High ? >= 500 Based on AHA/NCEP Guidelines. Nano Galarza DO CHEMISTRY ORDERABLES [facility] LABORATORY SERVICES - [facility] CLIA# [id number] [address] [place] [address] * (ABNORMAL) CBC WITHOUT DIFFERENTIAL (08/14/2020 4:56 AM CDT) WBC 6.2 4.0 - 9.8 K/uL 08/14/2020 5:25 AM CDT [employer] LABORATORY SERVICES - . [facility] RBC 3.70(L) 3.90 - 4.90 M/uL 08/14/2020 5:25 AM CDT [facility] LABORATORY SERVICES - . [facility] HEMOGLOBIN 11.0(L) 11.8 - 14.8 g/dL 08/14/2020 5:25 AM CDT [facility] LABORATORY SERVICES - [facility] HEMATOCRIT 34.3(L) 35.5 - 44.0 % 08/14/2020 5:25 AM CDT [facility] LABORATORY SERVICES - . [facility] MCV 92.7 82.0 - 99.0 fL 08/14/2020 5:25 AM CDT [facility] LABORATORY SERVICES - . [facility] MCH 29.7 27.2 - 32.6 pg 08/14/2020 5:25 AM CDT [facility] LABORATORY SERVICES - [facility] MCHC 32.1 31.5 - 35.5 g/dL 08/14/2020 5:25 AM CDT [facility] LABORATORY SERVICES - [facility] PLATELETS 126(L) 140 - 350 K/uL 08/14/2020 5:25 AM CDT [employer] [place] SERVICES - . [facility] MPV 10.3 9.3 - 12.4 fL 08/14/2020 5:25 AM CDT [employer] LABORATORY SERVICES - . [facility] RDW 13.9 11.5 - 14.5 % 08/14/2020 5:25 AM CDT [facility] LABORATORY SERVICES - . [facility] RDW-STDEV 47.4 37.1 - 48.7 fL 08/14/2020 5:25 AM CDT [facility] LABORATORY SERVICES - [facility] Blood Venipuncture / Unknown 08/14/2020 4:56 AM CDT 08/14/2020 5:05 AM CDT Nano Galarza DO HEMATOLOGY ORDERABLE S [facility] LABORATORY SERVICES - [facility] CLIA# [id number] 5 [facility] [place] [place] [address] * (ABNORMAL) BASIC METABOLIC PANEL (08/14/2020 4:56 AM CDT) [facility] SODIUM 139 136 - 145 mmol/L 08/14/2020 5:46 AM T [facility] LABORATORY SERVICES - . [facility] POTASSIUM 3.6 3.5 - 5.0 mmol/L 08/14/2020 5:46 AM T [facility] LABORATORY SERVICES - . [facility] CHLORIDE 107 98 - 107 mmol/L 08/14/2020 5:46 AM T [facility] LABORATORY SERVICES - . [facility] CO2 24 22 - 29 mmol/L 08/14/2020 5:46 AM T [facility] LABORATORY SERVICES - . [facility] CALCIUM 8.3(L) 8.6 - 10.2 mg/dL 08/14/2020 5:46 AM T [facility] LABORATORY SERVICES - . [facility] BUN 7 6 - 20 mg/dL 08/14/2020 5:46 AM T [facility] LABORATORY SERVICES - . [facility] CREATININE 0.51 0.51 - 0.95 mg/dL 08/14/2020 5:46 AM [facility] LABORATORY SERVICES - . [facility] GLUCOSE 96 74 - 99 mg/dL 08/14/2020 5:46 AM T [facility] LABORATORY SERVICES - . [facility] GFR >60 >=60 mL/min/1.7 3 sq meter 08/14/2020 5:[address] [facility] LABORATORY SERVICES - . [facility] Comment: eGFR [...] refer to the GFR result. GFR, >60 >=60 mL/min/1.7 3 sq meter 08/14/2020 5:46 AM CDT [facility] LABORATORY SERVICES [facility] ANION GAP 8 8 - 16 mmol/L 08/14/2020 5:46 AM CDT [facility] LABORATORY SERVICES [facility] Blood Venipuncture / Unknown 08/14/2020 4:56 AM CDT 08/14/2020 5:05 AM CDT Nano Galarza DO CHEMISTRY ORDERABLES Performing Organization Address [facility]/ZIP Co de Phone Number [facility] [place] [facility]# [id number] [address] [place] [address] * POC GLUCOSE (08/14/2020 4:52 AM CDT) GLUCOSE POC 97 74 - 99 mg/dL 08/14/2020 4:52 AM CDT [facility] LABORATORY SERVICES [facility] ESTIMATOR PRINTING NAME POC ANOOP IOANA 08/14/2020 4:52 AM CDT [facility] Blood, whole 08/14/2020 4:52 AM CDT 08/14/2020 5:09 AM CDT Nano Galarza DO POINT OF CARE TESTIN G Performing Organization Address City/[facility]/ZIP Co de Phone Number [facility] [place] [facility]# [id number] [address] [place] [address] * (ABNORMAL) POC GLUCOSE (08/14/2020 3:47 AM CDT) GLUCOSE POC 109(H) 74 - 99 mg/dL 08/14/2020 3:47 AM CDT [facility] COMMENT, GLU POC Notified RN/MD 08/14/2020 3:47 AM CDT [facility] ESTIMATOR PRINTING NAME POC ZAC BARRON 08/14/2020 3:47 AM CDT [facility] Blood, whole 08/14/2020 3:47 AM CDT 08/14/2020 4:15 AM CDT Nano Galarza DO POINT OF CARE TESTIN G Performing Organization Address City/[facility]/ZIP Co de Phone Number [facility] [place] [facility] CLIA# [id number] [address] [place] [address] * (ABNORMAL) POC GLUCOSE (08/14/2020 3:10 AM CDT) GLUCOSE POC 112(H) 74 - 99 mg/dL 08/14/2020 3:10 AM CDT [facility] LABORATORY SERVICES [facility] ESTIMATOR PRINTING NAME POC IOANA DAVALOS 08/14/2020 3:10 AM CDT [facility] Blood, whole 08/14/2020 3:10 AM CDT 08/14/2020 3:20 AM CDT Nano Galarza DO POINT OF CARE TESTIN Maggie Performing Organization Address [facility] Co de Phone Number [facility] [place] [facility] CLIA# [id number] [address] [place] [address] * (ABNORMAL) POC GLUCOSE (08/14/2020 1:55 AM CDT) GLUCOSE POC 168(H) 74 - 99 mg/dL 08/14/2020 1:55 AM CDT [employer] LABORATORY SERVICES [facility] ESTIMATOR PRINTING NAME POC IOANA DAVALOS 08/14/2020 1:55 AM CDT [employer] LABORATORY SERVICES [facility] Blood, whole 08/14/2020 1:55 AM CDT 08/14/2020 2:14 AM CDT Nano Galarza DO POINT OF CARE TESTIN [facility] [id number] [address] [place] [address] * (ABNORMAL) POC GLUCOSE (08/14/2020 1:00 AM CDT) GLUCOSE POC 206(H) 74 - 99 mg/dL 08/14/2020 1:00 AM CDT [facility] LABORATORY [facility] ESTIMATOR PRINTING NAME IOANA STEPHEN 08/14/2020 1:00 AM CDT [facility] LABORATORY [facility] Blood, whole 08/14/2020 1:00 AM CDT 08/14/2020 1:13 AM CDT Nano Galarza DO POINT OF CARE TESTIN G Performing Organization Address [facility]/ZIP Co de Phone Number [facility] [id number] [address] [place] [address] * (ABNORMAL) POC GLUCOSE (08/13/2020 11:59 PM CDT) GLUCOSE POC 171(H) 74 - 99 mg/dL 08/13/2020 11:59 PM CDT [facility] LABORATORY [facility] ESTIMATOR PRINTING NAME POC IOANA DAVALOS 08/13/2020 11:59 PM CDT [facility] LABORATORY [facility] Blood, whole 08/13/2020 11:5 9 PM CDT 08/14/2020 12:15 AM CDT Nano Galarza DO POINT OF CARE TESTIN G [facility] [id number] [address] [place] [address] * (ABNORMAL) POC GLUCOSE (08/13/2020 10:57 PM CDT) GLUCOSE POC 163(H) 74 - 99 mg/dL 08/13/2020 10:57 PM CDT [facility] LABORATORY [facility] ESTIMATOR PRINTING NAME IOANA STEPHEN 08/13/2020 10:57 PM CDT [facility] LABORATORY [facility] Blood, whole 08/13/2020 10:5 7 PM CDT 08/13/2020 11:05 PM CDT Nano Galarza DO POINT OF CARE TESTIN G Performing Organization Address [facility]/ZIP Co de Phone Number [facility] LABORATORY [facility]# [id number] [address] [place] [address] * (ABNORMAL) POC GLUCOSE (08/13/2020 10:18 PM CDT) GLUCOSE POC 130(H) 74 - 99 mg/dL 08/13/2020 10:18 PM CDT [facility] LABORATORY [facility] ESTIMATOR PRINTING NAME IOANA STEPHEN 08/13/2020 10:18 PM CDT [facility] LABORATORY [facility] Blood, whole 08/13/2020 10:1 8 PM CDT 08/13/2020 11:05 PM CDT Nano Galarza DO POINT OF CARE TESTJERONIMO G Performing Organization Address [facility]/ZIP Co de Phone Number [facility]# [id number] [address] [place] [address] * (ABNORMAL) POC GLUCOSE (08/13/2020 9:08 PM CDT) GLUCOSE POC 208(H) 74 - 99 mg/dL 08/13/2020 9:08 PM CDT [facility] LABORATORY [facility] ESTIMATOR PRINTING NAME IOANA STEPHEN 08/13/2020 9:08 PM CDT [facility] LABORATORY [facility] Blood, whole 08/13/2020 9:08 PM CDT 08/13/2020 9:30 PM CDT Nano Galarza DO POINT OF CARE TESTIN G [facility] LABORATORY [facility] CLIA# [id number] [address] [place] [address] * (ABNORMAL) POC GLUCOSE (08/13/2020 7:57 PM CDT) GLUCOSE POC 290(H) 74 - 99 mg/dL 08/13/2020 7:57 PM CDT [facility] LABORATORY SERVICES [facility] ESTIMATOR PRINTING NAME POC ZAC BARRON 08/13/2020 7:57 PM CDT [facility] LABORATORY SERVICES [facility] Blood, whole 08/13/2020 7:57 PM CDT 08/13/2020 8:05 PM CDT Nanoalexandre Galarza POINT OF CARE TESTIN G Performing Organization Address [facility]/ZIP Co de Phone Number [facility] LABORATORY [facility] CLIA# [id number] [address] [place] [address] * (ABNORMAL) POC GLUCOSE (08/13/2020 7:03 PM CDT) GLUCOSE POC 285(H) 74 - 99 mg/dL 08/13/2020 7:03 PM CDT [facility] LABORATORY [facility] ESTIMATOR PRINTING NAME POC KATIA LIMA 08/13/2020 7:03 PM CDT [facility] LABORATORY SERVICES [facility] Blood, whole 08/13/2020 7:03 PM CDT 08/13/2020 7:32 PM CDT Nanoalexandre Galarza POINT OF CARE TESTIN Maggie [facility] LABORATORY [facility] CLIA# [id number] [address] [place] [address] * (ABNORMAL) POC GLUCOSE (08/13/2020 5:57 PM CDT) GLUCOSE POC 252(H) 74 - 99 mg/dL 08/13/2020 5:57 PM CDT [facility] ESTIMATOR PRINTING NAME POC PHONG KNIGHT 08/13/2020 5:57 PM CDT [facility] Blood, whole 08/13/2020 5:57 PM CDT 08/13/2020 6:04 PM CDT Nano Galarza DO POINT OF CARE TESTIN G Performing Organization Address City/[facility]/ZIP Co de Phone Number [facility]# [id number] [address] [place] [address] * (ABNORMAL) TRIGLYCERIDE (08/13/2020 5:38 PM CDT) Pathologist [facility] TRIGLYCERIDE 1,097(H) <150 mg/dL 08/13/2020 6:36 PM CDT [facility] Blood Venipuncture / Unknown 08/13/2020 5:38 PM CDT 08/13/2020 5:46 PM CDT Narrative [facility] - 08/13/2020 6:36 PM CDT TRIGLYCERIDES ? mg/dL Normal ?< 150 Borderline High ?150 - 199 High ? 200 - 499 Very High ? >= 500 Based on AHA/NCEP Guidelines. Nano Galarza DO CHEMISTRY ORDERABLES Performing Organization Address [facility]/ZIP Co de Phone Number [facility]# [id number] [address] [place] [address] * (ABNORMAL) POC GLUCOSE (08/13/2020 4:31 PM CDT) GLUCOSE POC 284(H) 74 - 99 mg/dL 08/13/2020 4:31 PM CDT [facility] ESTIMATOR PRINTING NAME POC KATIA LIMA 08/13/2020 4:31 PM CDT [facility] LABORATORY SERVICES [facility] Blood, whole 08/13/2020 4:31 PM CDT 08/13/2020 4:46 PM CDT Nano Galarza DO POINT OF CARE TESTIN G Performing Organization Address City/[facility]/ZIP Co de Phone Number [facility] LABORATORY [facility] CLIA# [id number] [address] [facility] [place] [address] * (ABNORMAL) POC GLUCOSE (08/13/2020 1:18 PM CDT) GLUCOSE POC 178(H) 74 - 99 mg/dL 08/13/2020 1:18 PM CDT [facility] LABORATORY [facility] ESTIMATOR PRINTING NAME POC CE SOTELO 08/13/2020 1:18 PM CDT [facility] LABORATORY SERVICES [facility] Blood, whole 08/13/2020 1:18 PM CDT 08/13/2020 1:26 PM CDT Nano Galarza DO POINT OF CARE TESTIN G Performing Organization Address [facility]/ZIP Co de Phone Number [facility] CLIA# [id number] [address] [place] [address] * (ABNORMAL) POC GLUCOSE (08/13/2020 8:58 AM CDT) GLUCOSE POC 194(H) 74 - 99 mg/dL 08/13/2020 8:58 AM CDT [facility] LABORATORY SERVICES [facility] ESTIMATOR PRINTING NAME CE EDUARDO 08/13/2020 8:58 AM CDT [facility] LABORATORY SERVICES [facility] Blood, whole 08/13/2020 8:58 AM CDT 08/13/2020 9:05 AM CDT Nano Galarza DO POINT OF CARE TESTIN G [facility] [place] [facility]# [id number] [address] [place] [address] * (ABNORMAL) TRIGLYCERIDE (08/13/2020 7:30 AM CDT) TRIGLYCERIDE 2,092(H) <150 mg/dL 08/13/2020 9:45 AM CDT [facility] LABORATORY [facility] Blood Venipuncture / Unknown 08/13/2020 7:30 AM CDT 08/13/2020 8:35 AM CDT Narrative [facility] - 08/13/2020 9:45 AM CDT TRIGLYCERIDES ? mg/dL Normal ?< 150 Borderline High ?150 - 199 High ? 200 - 499 Very High ? >= 500 Based on AHA/NCEP Guidelines. Nano Galarza DO CHEMISTRY ORDERABLES Performing Organization Address [facility] Co de Phone Number [facility]# [id number] [address] [place] [address] * (ABNORMAL) POC GLUCOSE (08/12/2020 10:15 PM CDT) GLUCOSE POC 243(H) 74 - 99 mg/dL 08/12/2020 10:15 PM CDT [facility] [facility] COMMENT, GLU POC Notified RN/MD 08/12/2020 10:15 PM CDT [facility] LABORATORY [facility] ESTIMATOR PRINTING NAME POC MEERA MURRAY 08/12/2020 10:15 PM CDT [facility] LAB[facility]ATORY [facility] Blood, whole 08/12/2020 10:1 5 PM CDT 08/12/2020 10:23 PM CDT Nano Galarza DO POINT OF CARE TESTIN G [facility] LABORATORY SERVICES [facility] CLIA# [id number] [address] [place] [address] * (ABNORMAL) POC GLUCOSE (08/12/2020 6:08 PM CDT) GLUCOSE POC 180(H) 74 - 99 mg/dL 08/12/2020 6:08 PM CDT [facility] LABORATORY SERVICES [facility] ESTIMATOR PRINTING NAME POC AYLA BOWEN 08/12/2020 6:08 PM CDT [facility] LABORATORY SERVICES [facility] Blood, whole 08/12/2020 6:08 PM CDT 08/12/2020 6:15 PM CDT Nano Galarza DO POINT OF CARE TESTIN Maggie Performing Organization Address [facility]/ZIP Co de Phone Number [facility] LABORATORY [facility] CLIA# [id number] [address] [place] [address] * (ABNORMAL) POC GLUCOSE (08/12/2020 12:59 PM CDT) GLUCOSE POC 191(H) 74 - 99 mg/dL 08/12/2020 12:59 PM CDT [facility] LABORATORY [facility] ESTIMATOR PRINTING NAME POC AMALIA GALINDO 08/12/2020 12:59 PM CDT [facility] LABORATORY SERVICES [facility] Blood, whole 08/12/2020 12:5 9 PM CDT 08/12/2020 1:17 PM CDT Nano Galarza DO POINT OF CARE TESTIN Maggie [facility] LABORATORY [facility] CLIA# [id number] [address] [place] [address] * (ABNORMAL) POC GLUCOSE (08/12/2020 9:36 AM CDT) GLUCOSE POC 141(H) 74 - 99 mg/dL 08/12/2020 9:36 AM CDT [facility] LABORATORY SERVICES - [facility] ESTIMATOR PRINTING NAME POC AYLA BOWEN 08/12/2020 9:36 AM CDT [facility] LABORATORY SERVICES - [facility] Blood, whole 08/12/2020 9:36 AM CDT 08/12/2020 9:43 AM CDT Nano Galarza DO POINT OF CARE TESTIN G [employer] LABORATORY SERVICES - [facility] CLIA# [id number] [address] [facility] [place] [id number] * (ABNORMAL) CBC WITHOUT DIFFERENTIAL (08/12/2020 7:06 AM CDT) WBC 7.4 4.0 - 9.8 K/uL 08/12/2020 8:12 AM CDT [facility] LABORATORY SERVICES - . [facility] RBC 4.26 3.90 - 4.90 M/uL 08/12/2020 8:12 AM CDT [facility] LABORATORY SERVICES - . [facility] HEMOGLOBIN 13.0 11.8 - 14.8 g/dL 08/12/2020 8:12 AM CDT [facility] LABORATORY SERVICES - . [facility] HEMATOCRIT 39.1 35.5 - 44.0 % 08/12/2020 8:12 AM CDT [facility] LABORATORY SERVICES - . [facility] MCV 91.8 82.0 - 99.0 fL 08/12/2020 8:12 AM CDT [facility] LABORATORY SERVICES - . [facility] MCH 30.5 27.2 - 32.6 pg 08/12/2020 8:12 AM CDT [facility] LABORATORY SERVICES - . [facility] MCHC 33.2 31.5 - 35.5 g/dL 08/12/2020 8:12 AM CDT [facility] LABORATORY SERVICES - . [facility] PLATELETS 161 140 - 350 K/uL 08/12/2020 8:12 AM CDT [facility] LABORATORY SERVICES - . [facility] MPV 9.9 9.3 - 12.4 fL 08/12/2020 8:12 AM CDT [facility] LABORATORY SERVICES - . [facility] RDW 14.6(H) 11.5 - 14.5 % 08/12/2020 8:[address] [facility] [employer] LABORATORY SERVICES [facility] RDW-STDEV 49.4(H) 37.1 - 48.7 fL 08/12/2020 8:[address] [facility] [employer] SERVICES [facility] Blood Venipuncture / Unknown 08/12/2020 7:06 AM CDT 08/12/2020 7:57 AM CDT Nano Galarza DO HEMATOLOGY ORDERABLE S [facility] [employer] SERVICES [facility] CLIA# [id number] [address] [place] [id number] * (ABNORMAL) BASIC METABOLIC PANEL (08/12/2020 7:05 AM CDT) SODIUM 138 136 - 145 mmol/L 08/12/2020 9:[address] [facility] [employer] SERVICES [facility] POTASSIUM 4.0 3.5 - 5.0 mmol/L 08/12/2020 9:[address] [facility] [employer] SERVICES [facility] CHLORIDE 107 98 - 107 mmol/L 08/12/2020 9:[address] [facility] [employer] [facility] CO2 21(L) 22 - 29 mmol/L 08/12/2020 9:[address] [facility] [employer] SERVICES [facility]. [facility] CALCIUM 8.4(L) 8.6 - 10.2 mg/dL 08/12/2020 9:[address] [facility] [employer] SERVICES [facility]. [facility] BUN 6 6 - 20 mg/dL 08/12/2020 9:[address] [facility] [employer] SERVICES [facility]. [facility] CREATININE 0.45(L) 0.51 - 0.95 mg/dL 08/12/2020 9:[address] [facility] [employer] SERVICES [facility]. [facility] GLUCOSE 137(H) 74 - 99 mg/dL 08/12/2020 9:[address] [facility] [employer] SERVICES [facility]. [facility] GFR >60 >=60 mL/min/1.7 3 sq meter 08/12/2020 9:[address] [facility] [employer] [facility] Comment: eGFR has not been validated for [...] refer to the GFR result. GFR, >60 >=60 mL/min/1.7 3 sq meter 08/12/2020 9:01 AM CDT [facility] LABORATORY [facility] ANION GAP 10 8 - 16 mmol/L 08/12/2020 9:01 AM CDT [facility] LABORATORY [facility] Blood Venipuncture / Unknown 08/12/2020 7:05 AM CDT 08/12/2020 7:57 AM CDT Nano Galarza DO CHEMISTRY ORDERABLES [facility] LABORATORY [facility]# [id number] [address] [place] [id number] * (ABNORMAL) TRIGLYCERIDE (08/12/2020 7:05 AM CDT) [facility] TRIGLYCERIDE 1,725(H) <150 mg/dL 08/12/2020 9:13 AM CDT [facility] LABORATORY [facility] Blood Venipuncture / Unknown 08/12/2020 7:05 AM CDT 08/12/2020 7:57 AM CDT Narrative [facility] LABORATORY [facility] - 08/12/2020 9:13 AM CDT TRIGLYCERIDES ? mg/dL Normal ?< 150 Borderline High ?150 - 199 High ? 200 - 499 Very High ? >= 500 Based on AHA/NCEP Guidelines. Nano Galarza DO CHEMISTRY ORDERABLES Performing Organization Address [facility]/ZIP Co de Phone Number [facility] LABORATORY [facility] CLIA# [id number] [address] [place] [address] * (ABNORMAL) POC GLUCOSE (08/11/2020 10:04 PM CDT) GLUCOSE POC 158(H) 74 - 99 mg/dL 08/11/2020 10:04 PM CDT [facility] LABORATORY SERVICES - [facility] COMMENT, GLU POC Notified RN/MD 08/11/2020 10:04 PM CDT [facility] LABORATORY SERVICES - [facility] ESTIMATOR PRINTING NAME POC WILMER MORGAN 08/11/2020 10:04 PM CDT [facility] LABORATORY SERVICES [facility] Blood, whole 08/11/2020 10:0 4 PM CDT 08/11/2020 10:14 PM CDT Nano Galarza DO POINT OF CARE TESTIN Maggie Performing Organization Address [facility]/ZIP Co de Phone Number [facility] [employer] [facility] CLIA# [id number] [address] [place] [address] * (ABNORMAL) POC GLUCOSE (08/11/2020 6:09 PM CDT) GLUCOSE POC 124(H) 74 - 99 mg/dL 08/11/2020 6:09 PM CDT [facility] LABORATORY SERVICES [facility] ESTIMATOR PRINTING NAME POC AYLA BOWEN 08/11/2020 6:09 PM CDT [facility] LABORATORY SERVICES [facility] Blood, whole 08/11/2020 6:09 PM CDT 08/11/2020 6:31 PM CDT Nano Galarza DO POINT OF CARE TESTIN Maggie [facility] LABORATORY [facility] CLIA# [id number] [address] [place] [address] * (ABNORMAL) POC GLUCOSE (08/11/2020 1:46 PM CDT) GLUCOSE POC 119(H) 74 - 99 mg/dL 08/11/2020 1:46 PM CDT [facility] LABORATORY SERVICES [facility] ESTIMATOR PRINTING NAME POC AYLA BOWEN 08/11/2020 1:46 PM CDT [facility] LABORATORY SERVICES [facility] Blood, whole 08/11/2020 1:46 PM CDT 08/11/2020 5:12 PM CDT [employer] Galarza POINT OF CARE TESTIN Maggie Performing Organization Address [facility]/ZIP Co de Phone Number [facility] CLIA# [id number] [address] [place] [address] * POC GLUCOSE (08/11/2020 1:26 PM CDT) GLUCOSE POC 80 74 - 99 mg/dL 08/11/2020 1:26 PM CDT [facility] LABORATORY [facility] ESTIMATOR PRINTING NAME POC AYLA BOWEN 08/11/2020 1:26 PM CDT [facility] LABORATORY SERVICES [facility] Blood, whole 08/11/2020 1:26 PM CDT 08/11/2020 5:12 PM CDT Nano[employer] Galar[employer] POINT OF CARE TESTIN Maggie Performing Organization Address City/[facility]/ZIP Co de Phone Number [facility] LABORATORY [facility] CLIA# [id number] [address] [place] [address] * (ABNORMAL) POC GLUCOSE (08/11/2020 1:12 PM CDT) GLUCOSE POC 66(L) 74 - 99 mg/dL 08/11/2020 1:12 PM CDT [facility] LABORATORY SERVICES [facility] COMMENT, GLU POC To be Repeated 08/11/2020 1:12 PM CDT [facility] LABORATORY SERVICES [facility] COMMENT 2, GLU POC Notified RN/MD 08/11/2020 1:12 PM CDT [facility] LABORATORY SERVICES [facility] ESTIMATOR PRINTING NAME POC YAMIL BRODY 08/11/2020 1:12 PM CDT [facility] LABORATORY SERVICES - [facility] Blood, whole 08/11/2020 1:12 PM CDT 08/11/2020 5:12 PM CDT Nano Galarza DO POINT OF CARE TESTIN Maggie Performing Organization Address City/[facility]/ZIP Co de Phone Number [facility] LABORATORY SERVICES [facility] CLIA# [id number] [address] [place] [address] * (ABNORMAL) POC GLUCOSE (08/11/2020 1:09 PM CDT) GLUCOSE POC 66(L) 74 - 99 mg/dL 08/11/2020 1:09 PM CDT [facility] LABORATORY SERVICES [facility] COMMENT, GLU POC Repeated Glucose 08/11/2020 1:09 PM CDT [facility] LABORATORY SERVICES [facility] COMMENT 2, GLU POC Notified RN/MD 08/11/2020 1:09 PM CDT [facility] LABORATORY SERVICES - [facility] ESTIMATOR PRINTING NAME POC AYLA BOWEN 08/11/2020 1:09 PM CDT [facility] LABORATORY SERVICES [facility] Blood, whole 08/11/2020 1:09 PM CDT 08/11/2020 1:17 PM CDT Nano Galarza DO POINT OF CARE FLY Serrano Performing Organization Address City/[facility]/ZIP Co de Phone Number [facility] LABORATORY [facility] CLIA# [id number] [address] [place] [address] * (ABNORMAL) TRIGLYCERIDE (08/11/2020 10:39 AM CDT) Pathologist [facility] TRIGLYCERIDE 2,222(H) <150 mg/dL 08/11/2020 11:45 AM CDT [facility] LABORATORY SERVICES [facility] Blood Venipuncture / Unknown 08/11/2020 10:39 AM CDT 08/11/2020 10:47 AM CDT Narrative [facility] LABORATORY SERVICES - [facility] - 08/11/2020 11:45 AM CDT TRIGLYCERIDES ? mg/dL Normal ?< 150 Borderline High ?150 - 199 High ? 200 - 499 Very High ? >= 500 Based on AHA/NCEP Guidelines. Alize Arteaga MD CHEMISTRY ORDER OSVALDO Performing Organization Address [facility] Co de Phone Number [facility]# [id number] [address] [place] [address] * (ABNORMAL) POC GLUCOSE (08/11/2020 9:17 AM CDT) GLUCOSE POC 134(H) 74 - 99 mg/dL 08/11/2020 9:17 AM CDT [facility] LABORATORY SERVICES [facility] ESTIMATOR PRINTING NAME AYLA BAEZA 08/11/2020 9:17 AM CDT [facility] LABORATORY SERVICES [facility] Blood, whole 08/11/2020 9:17 AM CDT 08/11/2020 9:24 AM CDT Nano Galarza DO POINT OF CARE TESTIN G Performing Organization Address [facility] Co de Phone Number [facility]# [id number] [address] [place] [address] * (ABNORMAL) POC GLUCOSE (08/10/2020 9:55 PM CDT) GLUCOSE POC 206(H) 74 - 99 mg/dL 08/10/2020 9:55 PM CDT [facility] LABORATORY SERVICES [facility] COMMENT, GLU POC Notified RN/MD 08/10/2020 9:55 PM CDT [facility] LABORATORY SERVICES [facility] ESTIMATOR PRINTING NAME POC JUDITHDANICA 08/10/2020 9:55 PM CDT [facility] Blood, whole 08/10/2020 9:55 PM CDT 08/10/2020 10:05 PM CDT Angie Louis MD POINT OF CARE TESTIN G Performing Organization Address [facility] Co de Phone Number [facility]# [id number] [address] [place] [address] * (ABNORMAL) TRIGLYCERIDE (08/10/2020 3:43 PM CDT) TRIGLYCERIDE 2,425(H) <150 mg/dL 08/10/2020 5:13 PM CDT [facility] Blood Venipuncture / Unknown 08/10/2020 3:43 PM CDT 08/10/2020 3:49 PM CDT Narrative [facility] [employer] [facility] - 08/10/2020 5:13 PM CDT TRIGLYCERIDES ? mg/dL Normal ?< 150 Borderline High ?150 - 199 High ? 200 - 499 Very High ? >= 500 Based on AHA/NCEP Guidelines. Parviz Jamil MD CHEMISTRY ORDERABLES Performing Organization Address [facility] Co de Phone Number [facility] [employer]# [id number] [address] [place] [address] * LIPASE (08/10/2020 3:43 PM CDT) LIPASE 42 13 - 60 U/L 08/10/2020 4:55 PM CDT [facility] [employer] [facility] Blood Venipuncture / Unknown 08/10/2020 3:43 PM CDT 08/10/2020 3:49 PM CDT Parviz Jamil MD CHEMISTRY ORDERABLES [facility] LABORATORY SERVICES - [facility] CLIA# [id number] [address] [place] [address] * (ABNORMAL) COMPREHENSIVE METABOLIC PANEL (08/10/2020 3:43 PM CDT) SODIUM 132(L) 136 - 145 mmol/L 08/10/2020 5:13 PM CDT [facility] LABORATORY SERVICES - [facility] POTASSIUM 4.7 3.5 - 5.0 mmol/L 08/10/2020 5:13 PM CDT [facility] LABORATORY SERVICES - [facility] Comment:Moderate hemolysis p resent. Can cause significant falsely elevated result. Redraw if indicated. CHLORIDE 98 98 - 107 mmol/L 08/10/2020 5:13 PM CDT [facility] LABORATORY SERVICES - . [facility] CO2 21(L) 22 - 29 mmol/L 08/10/2020 5:13 PM CDT [facility] LABORATORY SERVICES - . [facility] CALCIUM 9.2 8.6 - 10.2 mg/dL 08/10/2020 5:13 PM CDT [facility] LABORATORY SERVICES - . [facility] BUN 7 6 - 20 mg/dL 08/10/2020 5:13 PM CDT [facility] LABORATORY SERVICES - . [facility] CREATININE 0.57 0.51 - 0.95 mg/dL 08/10/2020 5:13 PM CDT [facility] LABORATORY SERVICES - . [facility] GLUCOSE 331(H) 74 - 99 mg/dL 08/10/2020 5:13 PM CDT [facility] LABORATORY SERVICES [facility] TOTAL PROTEIN 6.1(L) 6.7 - 8.6 g/dL 08/10/2020 5:13 PM CDT [facility] LABORATORY SERVICES [facility] ALBUMIN 4.5 3.5 - 5.2 g/dL 08/10/2020 5:13 PM CDT [facility] LABORATORY SERVICES [facility] BILIRUBIN TOTAL 0.3 0.3 - 1.2 mg/dL 08/10/2020 5:13 PM CDT [facility] LABORATORY SERVICES - . [facility] ALKALINE PHOSPHATASE 43 35 - 104 U/L 08/10/2020 5:13 PM CDT [facility] LABORATORY SERVICES - . [facility] AST 22 <33 U/L 08/10/2020 5:13 PM T [facility] LABORATORY [facility] Comment: Cleared of chylomicrons. Hemolysis present. ??Result may be falsely elevated. ALT 13 <34 U/L 08/10/2020 5:13 PM CDT [facility] LABORATORY [facility] Comment: Cleared of chylomicrons. Hemolysis present. ??Result may be falsely elevated. GFR >60 >=60 mL/min/1.7 3 sq meter 08/10/2020 5:13 PM CDT [facility] LABORATORY [facility] Comment: eGFR has not [...] refer to the GFR result. GFR, >60 >=60 mL/min/1.7 3 sq meter 08/10/2020 5:13 PM CDT [facility] ANION GAP 13 8 - 16 mmol/L 08/10/2020 5:13 PM T [facility] Blood Venipuncture / Unknown 08/10/2020 3:43 PM CDT 08/10/2020 3:49 PM CDT Narrative [facility] - 08/10/2020 5:13 PM CDT Samples containing indocyanine green cause interferences on Total and/or Direct Bilirubin and must not be measured. Parviz Jamil MD CHEMISTRY ORDERABLES [facility] [id number] [address] [facility] [address] [place] [address] * (ABNORMAL) CBC WITH DIFFERENTIAL (08/10/2020 3:43 PM CDT) WBC 11.4(H) 4.0 - 9.8 K/uL 08/10/2020 4:20 PM CDT [facility] LABORATORY SERVICES [facility] RBC 4.98(H) 3.90 - 4.90 M/uL 08/10/2020 4:20 PM CDT [facility]ATORY SERVICES [facility] HEMOGLOBIN 15.9(H) 11.8 - 14.8 g/dL 08/10/2020 4:20 PM CDT [facility]ATORY SERVICES [facility] HEMATOCRIT 44.5(H) 35.5 - 44.0 % 08/10/2020 4:20 PM CDT [facility]ATORY SERVICES [facility] MCV 89.4 82.0 - 99.0 fL 08/10/2020 4:20 PM CDT [facility] SERVICES [facility] MCH 31.9 27.2 - 32.6 pg 08/10/2020 4:20 PM CDT [facility] LABORATORY SERVICES - . [facility] MCHC 35.7(H) 31.5 - 35.5 g/dL 08/10/2020 4:20 PM CDT [facility]ATORY SERVICES [facility] RDW 14.1 11.5 - 14.5 % 08/10/2020 4:20 PM CDT [facility]ATORY SERVICES [facility] RDW-STDEV 45.9 37.1 - 48.7 fL 08/10/2020 4:20 PM CDT [facility] LAB[facility]ATORY SERVICES [facility] PLATELETS 226 140 - 350 K/uL 08/10/2020 4:20 PM CDT [facility] LABORATORY SERVICES - . [facility] MPV 9.9 9.3 - 12.4 fL 08/10/2020 4:20 PM CDT [facility] NEUTROPHILS 67 % 08/10/2020 4:20 PM CDT [facility] LYMPHOCYTES 25 % 08/10/2020 4:20 PM CDT [facility] MONOCYTES 5 % 08/10/2020 4:20 PM CDT [facility] EOSINOPHILS 1 % 08/10/2020 4:20 PM CDT [facility] BASOPHILS 1 % 08/10/2020 4:20 PM CDT [facility] IMMATURE GRANULOCYTES 1 % 08/10/2020 4:20 PM CDT [facility] Comment:IG (Immature Granulo cyte) count includes Metamyelocytes, Myelocytes, and Promyelocytes NEUTROPHIL ABSOLUTE 7.67(H) 1.90 - 7.00 K/uL 08/10/2020 4:20 PM CDT [facility] LYMPHOCYTE ABSOLUTE 2.85 0.70 - 4.50 K/uL 08/10/2020 4:20 PM CDT [facility] MONOCYTE ABSOLUTE 0.60 0.10 - 1.30 K/uL 08/10/2020 4:20 PM CDT [facility] - . [facility] EOSINOPHIL ABSOLUTE 0.11 0.00 - 0.70 K/uL 08/10/2020 4:20 PM CDT [facility] - . [facility] BASOPHILS ABSOLUTE 0.07 0.00 - 0.20 K/uL 08/10/2020 4:20 PM CDT [facility] IMMATURE GRANULOCYTES ABSOLUTE 0.14(H) 0.00 - 0.03 K/uL 08/10/2020 4:20 PM CDT [facility] Blood Venipuncture / Unknown 08/10/2020 3:43 PM CDT 08/10/2020 3:49 PM CDT Parviz Jamil MD HEMATOLOGY ORDERABLE S [facility]# [id number] [address] [facility] [place] [address] * EKG 12-LEAD (08/10/2020 1:10 PM CDT) 08/10/2020 1:10 PM CDT Narrative INTERFACE SYSTEM - 08/10/2020 4:38 PM CDT ? Stationary ECG Study ? [facility] ? Test Date: ?08/10/2020 1:10 PM Pat Name: ? CASANDRA FEDDER ?Department: ?? 37 ?Room: ? Gender: ? F ?Coating Machine Feeder: ?? chesc1 : ?1975 ? Requested By: ?? Order Number: [id number] ?Reading MD: ?? Parviz Brunts ? Measurements Intervals ?Harned ? Rate: ? 105 ?P: ?59 NM: ? 144 ?QRS: ?63 QRSD: ? 85 ? T: ?3 QT: ? 338 ? QTc: ?447 ? Interpretive Statements ? 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: [email or web address] : 1975 Requested By: Order Number: [id number] Reading MD: Parviz Wyman Measurements Intervals Harned Rate: 105 P: 59 NM: 144 QRS: 63 QRSD: 85 T: 3 QT: 338 QTc: 447 Interpretive Statements Sinus tachycardia Borderline T wave abnormalities Electronically Signed On 08-10-2020 16:38:20 CDT by Parviz Wyman Parviz Jamil MD ECG ORDERABLES INTERFACE SYSTEM Refer to clinic/hospital department documented in this encounter Visit Diagnoses Diagnosis Recurrent pancreatitis- Primary Chronic pancreatitis Hypertriglyceridemia Pure hyperglyceridemia Upper abdominal pain, unspecified History of pancreatitis Personal history of other diseases of digestive system History of plasmapheresis Type 2 diabetes mellitus without complication, with long-term current use of insulin Nausea vomiting and diarrhea Nausea with vomiting Acquired hypothyroidism Unspecified hypothyroidism Hypertriglyceridemia Pure hyperglyceridemia Depression with anxiety Dysthymic disorder Chylomicronemia syndrome Hyperchylomicronemia Acute on chronic pancreatitis Tobacco use Tobacco use disorder Type 2 diabetes mellitus without complication, with long-term current use of insulin Upper abdominal pain, unspecified documented in this encounter Administered Medications Inactive Administered Medications - up to 3 most recent administrations Medication Order MAR Action Action Date Dose Rate Site acetaminophen (TYLENOL) tablet 650 mg 650 mg, Oral, EVERY 6 HOURS PRN, Starting on Sat08/10/20 at 1812, Until Sat08/14/20 at 1659, Other (See Comment), See admin instructions, Routine Given 08/12/2020 8:40 PM CDT 650 mg Given 08/12/2020 10:18 AM CDT 650 mg Given 08/11/2020 5:17 PM CDT 650 mg atorvastatin (LIPITOR) tablet 80 mg 80 mg, Oral, DAILY AT BEDTIME, First dose on Sat08/10/20 at 2100, Until Discontinued, Routine Given 08/13/2020 8:59 PM CDT 80 mg Given 08/12/2020 8:40 PM CDT 80 mg Given 08/11/2020 8:37 PM CDT 80 mg calcium GLUCONATE 2,000 mg in sodium chloride (iso-osmotic) 100 mL IVPB 2,000 mg, IV, ONE TIME ONLY, 1 dose, On Katie 08/11/20 at 1300, Routine New Bag 08/11/2020 2:44 PM CDT 2,000 mg 100 mL/hr calcium GLUCONATE 2,000 mg in sodium chloride (iso-osmotic) 100 mL IVPB 2,000 mg, IV, INTRA-PROCEDURE ONCE, 1 dose, Starting on Sat08/12/20 at 1006, Until Sat08/12/20 at 1203, Stat New Bag 08/12/2020 10:50 AM CDT 2,000 mg 50 mL/hr calcium GLUCONATE 2,000 mg in sodium chloride (iso-osmotic) 100 mL IVPB 2,000 mg, IV, ONE TIME ONLY, 1 dose, On 08/13/20 at 1100, Routine New Bag 08/13/2020 12:09 PM CDT 2,000 mg 100 mL/hr citalopram (CeleXA) tablet 40 mg 40 mg, Oral, DAILY AT BEDTIME, First dose on Sat08/10/20 at 2100, Until Discontinued, Routine, Previous Med: citalopram (CeleXA) 40 mg tablet - Orig Sig - Take 40 mg by mouth daily at bedtime. Given 08/13/2020 8:59 PM CDT 40 mg Given 08/12/2020 8:40 PM CDT 40 mg Given 08/11/2020 8:37 PM CDT 40 mg dextrose 5 % in water 250 mL flush bag 25 mL 25 mL, IV, SEE ADMIN INSTRUCTIONS, Starting on Sat08/12/20 at 0328, Until Sat08/14/20 at 1659, Routine dextrose 5% - lactated ringers infusion IV, at 75 mL/hr, CONTINUOUS, Starting on Sat08/13/20 at 1315, Until Sat08/14/20 at 0624, Routine Rate Verify 08/14/2020 2:00 AM CDT 75 mL/ hr Rate Verify 08/14/2020 12:00 AM CDT 75 mL/hr Bag Switched 08/13/2020 6:07 PM CDT 75 mL/hr dextrose 5% - sodium chloride 0.9% infusion IV, at 40 mL/hr, SEE ADMIN INSTRUCTIONS, Starting on Sat08/14/20 at 0625, Until Sat08/14/20 at 1659, Routine dextrose 50% (D50) syringe 12.5 Gram 12.5 Gram, IV, SEE ADMIN INSTRUCTIONS, Starting on Sat08/14/20 at 0625, Until Sat08/14/20 at 1659, Routine dextrose 50% (D50) syringe 25 Gram 25 Gram, IV, SEE ADMIN INSTRUCTIONS, Starting on Sat08/14/20 at 0625, Until Sat08/14/20 at 1659, Routine diphenhydrAMINE (BENADRYL) tablet 25 mg 25 mg, Oral, EVERY 8 HOURS PRN, Starting on Sat08/10/20 at 1812, Until Sat08/14/20 at 1659, Itching, Routine, Previous Med: diphenhydrAMINE (BENADRYL) 25 mg tablet - Orig Sig - Take 1 Tablet (25 mg) by mouth every 8 hours as needed for Itching. Given 08/13/2020 8:11 PM CDT 25 mg Given 08/13/2020 9:25 AM CDT 25 mg Given 08/12/2020 5:33 PM CDT 25 mg docusate sodium (COLACE) capsule 100 mg 100 mg, Oral, TWO TIMES DAILY PRN, Starting on Sat08/10/20 at 1812, Until Sat08/14/20 at 1659, Constipation, Routine Given 08/13/2020 8:11 PM CDT 100 mg enoxaparin (LOVENOX) injection 40 mg 40 mg, subCUT, EVERY 24 HOURS, First dose on Sat08/13/20 at 2100, Until Discontinued, Routine, Indication: Prophylaxis of VTE Given 08/13/2020 8:11 PM CDT 40 mg Abdominal Tissue fenofibrate (LOFIBRA) tablet 160 mg 160 mg, Oral, DAILY, First dose on Sat08/11/20 at 0900, Until Discontinued, Routine, Previous Med: fenofibrate (LOFIBRA) 160 mg Tablet - Orig Sig - TAKE 1 TABLET BY MOUTH EVERY DAY Patient taking differently: Take 160 mg by mouth daily. Given 08/14/2020 9:51 AM CDT 160 mg Given 08/13/2020 9:13 AM CDT 160 mg Given 08/12/2020 10:15 AM CDT 160 mg fentaNYL PF (SUBLIMAZE) 50 mcg/mL injection 100 mcg 100 mcg, IV, ONE TIME ONLY, 1 dose, On Sat08/10/20 at 1545, Routine Given 08/10/2020 3:45 PM CDT 100 mcg Fish Oil-Bellaire-3 Fatty Acids 360-1,200 mg capsule 1 Capsule 1 Capsule, Oral, TWO TIMES DAILY WITH MEALS, First dose on Sat08/11/20 at 1700, Until Discontinued, Routine Given 08/14/2020 9:53 AM CDT 1 Capsule Given 08/13/2020 6:12 PM CDT 1 Capsule Given 08/13/2020 9:13 AM CDT 1 Capsule glucagon HCL 1 mg/mL injection 1 mg 1 mg, IM, SEE ADMIN INSTRUCTIONS, Starting on Sat08/14/20 at 0625, Until Sat08/14/20 at 1659, Routine heparin injection 5,000 Units 5,000 Units, subCUT, EVERY 8 HOURS, First dose on Sat08/10/20 at 1815, Until Discontinued, Routine Given 08/13/2020 2:34 PM CDT 5,000 Units Abdomen, Left Upper Quadrant Given 08/13/2020 5:29 AM CDT 5,000 Units A bdomen, Left Lower Quadrant Given 08/12/2020 8:39 PM CDT 5,000 Units A bdomen, Left Lower Quadrant heparin, porcine (pf) 10 unit/mL IV syringe 20 Units 20 Units, IV, ONE TIME ONLY, 1 dose, On Katie 08/11/20 at 1300, Routine, PLEASE TUBE TO 516. THANK YOU! Given 08/11/2020 3:40 PM CDT 20 Units heparin, porcine (pf) 10 unit/mL IV syringe 20 Units 20 Units, IV, ONE TIME ONLY, 1 dose, On Sat08/12/20 at 1045, Stat Given 08/12/2020 12:00 PM CDT 20 Units heparin, porcine lock flush (pf) 100 unit/mL injection 500 Units 500 Units, IV, ONE TIME ONLY, 1 dose, On Katie 08/11/20 at 1300, Routine, PLEASE TUBE TO 516. THANK YOU! Given 08/11/2020 3:40 PM CDT 500 Units heparin, porcine lock flush (pf) 100 unit/mL injection 500 Units 500 Units, IV, ONE TIME ONLY, 1 dose, On Katie 08/11/20 at 1300, Routine, PLEASE TUBE TO 516. THANK YOU! Given 08/11/2020 3:39 PM CDT 500 Units heparin, porcine lock flush (pf) 100 unit/mL injection 500 Units 500 Units, IV, ONE TIME ONLY, 1 dose, On Sat08/12/20 at 1045, Stat, Please tube to floor Given 08/12/2020 11:59 AM CDT 500 Units heparin, porcine lock flush (pf) 100 unit/mL injection 500 Units 500 Units, IV, ONE TIME ONLY, 1 dose, On Sat08/12/20 at 1045, Stat, Please tube to floor Given 08/12/2020 11:59 AM CDT 500 Units heparin, porcine lock flush (pf) 100 unit/mL injection 500 Units 500 Units, IV, ONE TIME ONLY, 1 dose, On 08/13/20 at 1100, Routine, Please tube to floor Admin by Another Clinician (Comment) 08/13/2020 11:00 AM CDT 500 Units heparin, porcine lock flush (pf) 100 unit/mL injection 500 Units 500 Units, IV, ONE TIME ONLY, 1 dose, On 08/13/20 at 1100, Routine, Please tube to floor Admin by Another Clinician (Comment) 08/13/2020 11:00 AM CDT 500 Units HYDROmorphone (DILAUDID) 2 mg/mL injection 0.5 mg 0.5 mg, IV, EVERY 4 HOURS PRN, Starting on Sat08/10/20 at 1812, Until Sat08/14/20 at 0733, Pain (See admin instructions), Routine Given 08/14/2020 2:12 AM CDT 0.5 mg Given 08/13/2020 9:19 PM CDT 0.5 mg Given 08/13/2020 5:32 PM CDT 0.5 mg hydrOXYzine HCL (ATARAX) tablet 25 mg 25 mg, Oral, ONE TIME ONLY, 1 dose, On [facility] 08/13/20 at 2215, Routine Given 08/13/2020 10:28 PM CDT 25 mg insulin glargine (LANTUS) injection 22 Units 22 Units, subCUT, DAILY AT BEDTIME, First dose on Sat08/10/20 at 2100, Until Discontinued, Routine Given 08/10/2020 10:27 PM CDT 22 Units Arm, Right insulin glargine (LANTUS) injection 24 Units 24 Units, subCUT, DAILY WITH BREAKFAST, First dose on Sat08/11/20 at 0800, Until Discontinued, Routine Given 08/11/2020 9:10 AM CDT 24 Units Abdominal Tissue insulin glargine (LANTUS) injection 5 Units 5 Units, subCUT, TWO TIMES DAILY, First dose on Sat08/14/20 at 0900, Until Discontinued, Routine insulin lispro (HumaLOG) injection 0-3 Units 0-3 Units, subCUT, DAILY AT BEDTIME, First dose on Sat08/10/20 at 2100, Until Discontinued, Routine Given 08/12/2020 10:25 PM CDT 1 Units Arm, Left Upper Given 08/10/2020 10:27 PM CDT 1 Units A rm, Right insulin lispro (HumaLOG) injection 0-4 Units 0-4 Units, subCUT, THREE TIMES DAILY WITH MEALS, First dose on Sat08/10/20 at 2000, Until Discontinued, Routine Given 08/13/2020 9:17 AM CDT 1 Units Arm, Left Upper Given 08/12/2020 6:09 PM CDT 1 Units Ar m, Left Upper Given 08/12/2020 1:00 PM CDT 1 Units Ar m, Left Upper insulin lispro (HumaLOG) injection 0-4 Units 0-4 Units, subCUT, DAILY AT BEDTIME, First dose on Sat08/14/20 at 2100, Until Discontinued, Routine insulin lispro (HumaLOG) injection 0-7 Units 0-7 Units, subCUT, THREE TIMES DAILY WITH MEALS, First dose on Sat08/14/20 at 0700, Until Discontinued, Routine Given 08/14/2020 2:03 PM CDT 1 Units Arm, Left Upper Given 08/14/2020 9:55 AM CDT 1 Units Ar m, Left Upper insulin lispro (HumaLOG) injection 4 Units 4 Units, subCUT, THREE TIMES DAILY WITH MEALS, First dose on Sat08/10/20 at 2000, Until Discontinued, Routine Given 08/11/2020 9:46 AM CDT 4 Units Arm, Left insulin regular (HUMULIN R,NOVOLIN R) 1 Units/mL in sodium chloride 0.9% infusion 0-25 Units/hr (0-25 mL/hr), IV, TITRATE, Starting on 08/13/20 at 1300, Until 08/14/20 at 0624 Rate Change 08/14/2020 5:01 AM CDT 2.5 Units/hr 2.5 mL/hr Rate Change 08/14/2020 3:53 AM CDT 3.5 Units/hr 3.5 mL/hr Rate Verify 08/14/2020 2:00 AM CDT 5.5 Units/hr 5.5 mL/hr lactated ringers infusion IV, at 75 mL/hr, CONTINUOUS, Starting on 08/13/20 at 1315, Until 08/14/20 at 0734, Routine New Bag 08/13/2020 4:58 PM CDT 75 mL/hr levothyroxine (SYNTHROID) tablet 200 mcg 200 mcg, Oral, DAILY, First dose on Katie 08/11/20 at 0900, Until Discontinued, Routine, Previous Med: levothyroxine 200 mcg tablet - Orig Sig - Take 1 Tablet (200 mcg) by mouth daily. Take along with 50 mcg tab =250 mcg total daily Dose change Given 08/11/2020 9:07 AM CDT 200 mcg levothyroxine (SYNTHROID) tablet 200 mcg 200 mcg, Oral, DAILY EARLY, First dose (after last modification) on Sat08/12/20 at 0600, Until Discontinued, Routine, Previous Med: levothyroxine 200 mcg tablet - Orig Sig - Take 1 Tablet (200 mcg) by mouth daily. Take along with 50 mcg tab =250 mcg total daily Dose change Given 08/14/2020 9:50 AM CDT 200 mcg Given 08/13/2020 5:30 AM CDT 200 mcg Given 08/12/2020 5:37 AM CDT 200 mcg levothyroxine (SYNTHROID) tablet 50 mcg 50 mcg, Oral, DAILY EARLY, First dose on Sat08/11/20 at 0600, Until Discontinued, Routine, Previous Med: levothyroxine 50 mcg tablet - Orig Sig - Take 1 Tablet (50 mcg) by mouth daily in the morning. Take along with 200 mcg tab =250 mcg daily Given 08/14/2020 9:50 AM CDT 50 mcg Given 08/13/2020 5:29 AM CDT 50 mcg Given 08/12/2020 5:37 AM CDT 50 mcg metoclopramide (REGLAN) 5 mg/mL injection 10 mg 10 mg, IV, EVERY 6 HOURS PRN, Starting on Sat08/10/20 at 2339, Until Sat08/14/20 at 1659, Nausea/Emesis, Routine Given 08/13/2020 9:26 AM CDT 10 mg Given 08/12/2020 6:12 PM CDT 10 mg Given 08/12/2020 10:18 AM CDT 10 mg morphine 4 mg/mL injection 4 mg 4 mg, IV, ONE TIME ONLY, 1 dose, On Sat08/10/20 at 1700, Routine Given 08/10/2020 5:00 PM CDT 4 mg nicotine (NICODERM CQ) 21 mg/24 hr transdermal patch 1 Patch 1 Patch, Transdermal, DAILY, First dose on Sat08/11/20 at 0900, Until Discontinued, Routine Applied 08/14/2020 9:55 AM CDT 1 Patch Arm, Right Upper Applied 08/13/2020 9:14 AM CDT 1 Patch Ar m, Left Upper Applied 08/12/2020 10:14 AM CDT 1 Patch A rm, Right Upper ondansetron (ZOFRAN ODT) tablet 4 mg 4 mg, Oral, EVERY 6 HOURS PRN, Starting on Sat08/10/20 at 1812, Until Sat08/14/20 at 1659, Nausea/Emesis, Routine, Previous Med: ondansetron (ZOFRAN ODT) 4 mg Tablet, Rapid Dissolve - Orig Sig - Dissolve 1 tablet on top of tongue, then swallow with saliva every 6 hours as needed for nausea/vomiting. Given 08/10/2020 10:33 PM CDT 4 mg ondansetron (ZOFRAN) 4 mg/2 mL injection 4 mg 4 mg, IV, ONE TIME ONLY, 1 dose, On Sat08/10/20 at 1545, Routine Given 08/10/2020 3:45 PM CDT 4 mg ondansetron (ZOFRAN) 4 mg/2 mL injection 4 mg 4 mg, IV, EVERY 6 HOURS PRN, Starting on 08/13/20 at 1749, Until Sat08/14/20 at 1659, Nausea/Emesis, Routine Given 08/13/2020 6:11 PM CDT 4 mg oxyCODONE (ROXICODONE) tablet 10 mg 10 mg, Oral, EVERY 4 HOURS PRN, Starting on Sat08/10/20 at 1812, Until Sat08/14/20 at 1659, Pain (See admin instructions), Routine Given 08/14/2020 12:0 8 AM CDT 10 mg Given 08/13/2020 8:11 PM CDT 10 mg Given 08/13/2020 2:38 PM CDT 10 mg oxyCODONE (ROXICODONE) tablet 5 mg 5 mg, Oral, EVERY 4 HOURS PRN, Starting on Sat08/10/20 at 1812, Until Sat08/14/20 at 1659, Pain (See admin instructions), Routine Given 08/13/2020 5:30 AM CDT 5 mg Given 08/12/2020 10:27 PM CDT 5 mg Given 08/12/2020 5:30 PM CDT 5 mg pantoprazole (PROTONIX) tablet 40 mg 40 mg, Oral, TWO TIMES DAILY, First dose on Sat08/10/20 at 2100, Until Discontinued, Routine, Previous Med: pantoprazole (PROTONIX) 40 mg Tablet, Delayed Release (E.C.) - Orig Sig - Take 40 mg by mouth 2 times daily . , Indication: Gastroesophageal reflux disease (GERD) Given 08/14/2020 9:59 AM CDT 40 mg Given 08/13/2020 8:10 PM CDT 40 mg Given 08/13/2020 9:13 AM CDT 40 mg sodium chloride (OCEAN) 0.65 % nasal soln 2 Twisp 2 Twisp, Both Nostrils, EVERY 15 MINUTES PRN, Starting on Sat08/11/20 at 1726, Until Sat08/14/20 at 1659, Congestion, Routine sodium chloride 0.9 % 250 mL flush bag 25 mL 25 mL, IV, SEE ADMIN INSTRUCTIONS, Starting on Sat08/12/20 at 0328, Until Sat08/14/20 at 1659, Routine sodium chloride 0.9% bolus solution 250 mL 250 mL, IV, ONE TIME ONLY, 1 dose, On Sat08/10/20 at 1545, at 500 mL/hr, Administer over 30 Minutes, Routine New Bag 08/10/2020 3:45 PM CDT 250 mL 500 mL/hr sodium chloride 0.9% infusion IV, at 100 mL/hr, CONTINUOUS, Starting on Sat08/10/20 at 1815, Until Sat08/11/20 at 1814, Routine New Bag 08/11/2020 5:21 PM CDT 100 mL/hr New Bag 08/11/2020 5:28 AM CDT 100 mL/hr New Bag 08/10/2020 6:15 PM CDT 100 mL/hr sodium chloride flush injection 5 mL 5 mL, IV, EVERY 12 HOURS (BlD), First dose on Sat08/12/20 at 0900, Until Discontinued, Routine Given 08/14/2020 9:58 AM CDT 5 mL Given 08/13/2020 9:20 PM CDT 5 mL Given 08/13/2020 9:32 AM CDT 5 mL sodium chloride flush injection 5 mL 5 mL, IV, SEE ADMIN INSTRUCTIONS, Starting on Sat08/12/20 at 0328, Until Sat08/14/20 at 1659, Routine traZODone (DESYREL) tablet 100 mg 100 mg, Oral, DAILY AT BEDTIME, First dose on Sat08/10/20 at 2100, Until Discontinued, Routine, Previous Med: traZODone (DESYREL) 100 mg tablet - Orig Sig - Take 100 mg by mouth daily at bedtime . Given 08/13/2020 9:17 PM CDT 100 mg Given 08/12/2020 8:40 PM CDT 100 mg Given 08/11/2020 8:37 PM CDT 100 mg documented in this encounter Active and Recently Administered Medications Times are shown in CDT. Scheduled Medication Order 08/12/2020 08/13/2020 08/14/2020 atorvastatin (LIPITOR) tablet 80 mg 80 mg, Oral, DAILY AT BEDTIME, First dose on Sat08/10/20 at 2100, Until Discontinued, Routine 2039 (Given - Provider: Yumiko Duron RN) 2058 (Given - Provider: Ioana Davalos, CLAU) calcium GLUCONATE 2,000 mg in sodium chloride (iso-osmotic) 100 mL IVPB (COMPLETED) 2,000 mg, IV, INTRA-PROCEDURE ONCE, 1 dose, Starting on Sat08/12/20 at 1006, Until Sat08/12/20 at 1203, Stat 1050 (New Bag - Provider: Puja Paz RN)1203 (Stopped - Provider: Puja Paz RN) calcium GLUCONATE 2,000 mg in sodium chloride (iso-osmotic) 100 mL IVPB (COMPLETED) 2,000 mg, IV, ONE TIME ONLY, 1 dose, On Sat08/13/20 at 1100, Routine 1209 (New Bag - Provider: Robyn Hernandez RN)1309 (Stopped - Provider: Robyn Hernandez RN) citalopram (CeleXA) tablet 40 mg 40 mg, Oral, DAILY AT BEDTIME, First dose on Sat08/10/20 at 2100, Until Discontinued, Routine, Previous Med: citalopram (CeleXA) 40 mg tablet - Orig Sig - Take 40 mg by mouth daily at bedtime. 2039 (Given - Provider: Yumiko Duron RN) 2058 (Given - Provider: Ioana Davalos RN) dextrose 5 % in water 250 mL flush bag 25 mL 25 mL, IV, SEE ADMIN INSTRUCTIONS, Starting on Sat08/12/20 at 0328, Until Sat08/14/20 at 1659, Routine dextrose 5% - sodium chloride 0.9% infusion IV, at 40 mL/hr, SEE ADMIN INSTRUCTIONS, Starting on 08/14/20 at 0625, Until 08/14/20 at 1659, Routine dextrose 50% (D50) syringe 12.5 Gram 12.5 Gram, IV, SEE ADMIN INSTRUCTIONS, Starting on 08/14/20 at 0625, Until 08/14/20 at 1659, Routine dextrose 50% (D50) syringe 25 Gram 25 Gram, IV, SEE ADMIN INSTRUCTIONS, Starting on 08/14/20 at 0625, Until 08/14/20 at 1659, Routine enoxaparin (LOVENOX) injection 40 mg 40 mg, subCUT, EVERY 24 HOURS, First dose on 08/13/20 at 2100, Until Discontinued, Routine, Indication: Prophylaxis of VTE 2010 (Given - Provider: Ioana Davalos RN) fenofibrate (LOFIBRA) tablet 160 mg 160 mg, Oral, DAILY, First dose on Katie 08/11/20 at 0900, Until Discontinued, Routine, Previous Med: fenofibrate (LOFIBRA) 160 mg Tablet - Orig Sig - TAKE 1 TABLET BY MOUTH EVERY DAY Patient taking differently: Take 160 mg by mouth daily. 1015 (Given - Provider: Amalia Galindo RN) 0913 (Given - Provider: Elke Rockwell RN) 0951 (Given - Provider: Katia Lima RN) Fish Oil-Bellaire-3 Fatty Acids 360-1,200 mg capsule 1 Capsule 1 Capsule, Oral, TWO TIMES DAILY WITH MEALS, First dose on Katie 08/11/20 at 1700, Until Discontinued, Routine 1015 (Given - Provider: Amalia Galindo RN)1732 (Given - Provider: Amalia Galindo RN) 0913 (Given - Provider: Elke Rockwell RN)1812 (Given - Provider: Katia Lima, CLAU) 0953 (Given - Provider: Katia Lima RN) glucagon HCL 1 mg/mL injection 1 mg 1 mg, IM, SEE ADMIN INSTRUCTIONS, Starting on 08/14/20 at 0625, Until 08/14/20 at 1659, Routine heparin injection 5,000 Units (CANCELED) 5,000 Units, subCUT, EVERY 8 HOURS, First dose on Sat08/10/20 at 1815, Until Discontinued, Routine 0538 (Given - Provider: Yumiko Duron, CLAU)1254 (Given - Provider: Amalia Galindo, CLAU)2039 (Given - Provider: Yumiko Duron RN) 0529 (Given - Provider: Yumiko Duron RN)1434 (Given - Provider: Elke Rockwell RN) heparin, porcine (pf) 10 unit/mL IV syringe 20 Units (COMPLETED) 20 Units, IV, ONE TIME ONLY, 1 dose, On Sat08/12/20 at 1045, Stat 1200 (Given - Provider: Puja Paz, CLAU) heparin, porcine (pf) 10 unit/mL IV syringe 20 Units 20 Units, IV, ONE TIME ONLY, 1 dose, On 08/13/20 at 1100, Routine 1100 (Canceled Entry - Provider: Katia Lima RN) heparin, porcine lock flush (pf) 100 unit/mL injection 500 Units (COMPLETED) 500 Units, IV, ONE TIME ONLY, 1 dose, On Sat08/12/20 at 1045, Stat, Please tube to floor 1159 (Given - Provider: Puja Paz RN) heparin, porcine lock flush (pf) 100 unit/mL injection 500 Units (COMPLETED) 500 Units, IV, ONE TIME ONLY, 1 dose, On Sat08/12/20 at 1045, Stat, Please tube to floor 1159 (Given - Provider: Puja Paz RN) heparin, porcine lock flush (pf) 100 unit/mL injection 500 Units (COMPLETED) 500 Units, IV, ONE TIME ONLY, 1 dose, On 08/13/20 at 1100, Routine, Please tube to floor 1100 (Admin by Another Clinician (Comment) - Provider: Katia Lima RN) heparin, porcine lock flush (pf) 100 unit/mL injection 500 Units (COMPLETED) 500 Units, IV, ONE TIME ONLY, 1 dose, On 08/13/20 at 1100, Routine, Please tube to floor 1100 (Admin by Another Clinician (Comment) - Provider: Katia Lima RN) hydrOXYzine HCL (ATARAX) tablet 25 mg (COMPLETED) 25 mg, Oral, ONE TIME ONLY, 1 dose, On 08/13/20 at 2215, Routine 2228 (Given - Provider: Ioana Davalos RN) insulin glargine (LANTUS) injection 5 Units 5 Units, subCUT, TWO TIMES DAILY, First dose on 08/14/20 at 0900, Until Discontinued, Routine 0900 (Due) insulin lispro (HumaLOG) injection 0-3 Units (CANCELED) 0-3 Units, subCUT, DAILY AT BEDTIME, First dose on Sat08/10/20 at 2100, Until Discontinued, Routine 2225 (Given - Provider: Yumiko Duron RN) insulin lispro (HumaLOG) injection 0-4 Units (CANCELED) 0-4 Units, subCUT, THREE TIMES DAILY WITH MEALS, First dose on Sat08/10/20 at 2000, Until Discontinued, Routine 0942 (Not Given - Provider: Amalia Galindo RN - Reason: Patient condition - Comment: BG 141)1300 (Given - Provider: Amalia Galindo RN - Comment: bg 191)1809 (Given - Provider: Amalia Galindo RN - Comment: bg 180) 0917 (Given - Provider: Elke Rockwell RN)1200 (Canceled Entry - Provider: Elke Rockwell RN) insulin lispro (HumaLOG) injection 0-4 Units 0-4 Units, subCUT, DAILY AT BEDTIME, First dose on 08/14/20 at 2100, Until Discontinued, Routine insulin lispro (HumaLOG) injection 0-7 Units 0-7 Units, subCUT, THREE TIMES DAILY WITH MEALS, First dose on Sat08/14/20 at 0700, Until Discontinued, Routine 0955 (Given - Provider: Katia Lima RN - Comment: BG 142. Pt waiting to eat lunch.)1403 (Given - Provider: Brenda Toribio, Student Nurse - Comment: BG 165. Meal given at 1405) levothyroxine (SYNTHROID) tablet 200 mcg 200 mcg, Oral, DAILY EARLY, First dose (after last modification) on Sat08/12/20 at 0600, Until Discontinued, Routine, Previous Med: levothyroxine 200 mcg tablet - Orig Sig - Take 1 Tablet (200 mcg) by mouth daily. Take along with 50 mcg tab =250 mcg total daily Dose change 0537 (Given - Provider: Yumiko Duron RN) 0530 (Given - Provider: Yumiko Duron RN) 0950 (Given - Provider: Katia Lima, CLAU) levothyroxine (SYNTHROID) tablet 50 mcg 50 mcg, Oral, DAILY EARLY, First dose on Sat08/11/20 at 0600, Until Discontinued, Routine, Previous Med: levothyroxine 50 mcg tablet - Orig Sig - Take 1 Tablet (50 mcg) by mouth daily in the morning. Take along with 200 mcg tab =250 mcg daily 0537 (Given - Provider: Yumiko Duron RN) 0529 (Given - Provider: Yumiko Duron RN) 0950 (Given - Provider: Katia Lima, CLAU) naloxone (NARCAN) 0.4 mg/mL injection 0.1 mg 0.1 mg, IV, SEE ADMIN INSTRUCTIONS, Starting on Sat08/10/20 at 1812, Until Sat08/14/20 at 1659, Routine nicotine (NICODERM CQ) 21 mg/24 hr transdermal patch 1 Patch 1 Patch, Transdermal, DAILY, First dose on Sat08/11/20 at 0900, Until Discontinued, Routine 0859 (Removed - Provider: Amalia Galindo RN)1014 (Applied - Provider: Amalia Galindo RN) 0859 (Removed - Provider: Elke Rockwell RN)0914 (Applied - Provider: Elke Rockwell RN) 0952 (Removed - Provider: Katia Lima RN)0955 (Applied - Provider: Katia Lima RN)1459 (Due: Removed - Provider: PROVIDER, DISCHARGE PATIENT - Comment: Time automatically adjusted from order being discontinued) pantoprazole (PROTONIX) tablet 40 mg 40 mg, Oral, TWO TIMES DAILY, First dose on Sat08/10/20 at 2100, Until Discontinued, Routine, Previous Med: pantoprazole (PROTONIX) 40 mg Tablet, Delayed Release (E.C.) - Orig Sig - Take 40 mg by mouth 2 times daily . , Indication: Gastroesophageal reflux disease (GERD) 1015 (Given - Provider: Amalia Galindo RN)2039 (Given - Provider: Yumiko Duron RN) 0913 (Given - Provider: Elke Rockwell RN)2009 (Given - Provider: Ioana Davalos RN) 0959 (Given - Provider: Katia Lima RN) sodium chloride 0.9 % 250 mL flush bag 25 mL 25 mL, IV, SEE ADMIN INSTRUCTIONS, Starting on Sat08/12/20 at 0328, Until 08/14/20 at 1659, Routine sodium chloride flush injection 5 mL 5 mL, IV, EVERY 12 HOURS (BlD), First dose on Sat08/12/20 at 0900, Until Discontinued, Routine 1014 (Given - Provider: Amalia Galindo RN)2039 (Given - Provider: Yumiko Duron RN) 0932 (Given - Provider: Elek Rockwell RN)2119 (Given - Provider: Ioana Davalos, CLAU) 0958 (Given - Provider: Katia Lima RN) sodium chloride flush injection 5 mL 5 mL, IV, SEE ADMIN INSTRUCTIONS, Starting on Sat08/12/20 at 0328, Until 08/14/20 at 1659, Routine traZODone (DESYREL) tablet 100 mg 100 mg, Oral, DAILY AT BEDTIME, First dose on Sat08/10/20 at 2100, Until Discontinued, Routine, Previous Med: traZODone (DESYREL) 100 mg tablet - Orig Sig - Take 100 mg by mouth daily at bedtime . 2039 (Given - Provider: Yumiko Duron RN) 2116 (Given - Provider: Ioana Davalos RN) Continuous Medication Order 08/12/2020 08/13/2020 08/14/2020 dextrose 5% - lactated ringers infusion (CANCELED) IV, at 75 mL/hr, CONTINUOUS, Starting on 08/13/20 at 1315, Until 08/14/20 at 0624, Routine 1807 (Bag Switched - Provider: Katia Lima RN) 0000 (Rate Verify - Provider: Ioana Davalos RN)0200 (Rate Verify - Provider: Ioana Davalos RN)0632 (Stopped - Provider: Ioana Davalos RN) insulin regular (HUMULIN R,NOVOLIN R) 1 Units/mL in sodium chloride 0.9% infusion (CANCELED) 0-25 Units/hr (0-25 mL/hr), IV, TITRATE, Starting on 08/13/20 at 1300, Until 08/14/20 at 0624 1700 (New Bag - Provider: Katia Lima RN - Comment: BG 284.)1804 (Rate Verify - Provider: Katia Lima RN - Comment: BG 252.)1908 (Rate Change - Provider: Katia Lima RN - Comment: BG 285.)2004 (Rate Change - Provider: Ioana Davalos RN)211 (Rate Change - Provider: Ioana Davalos RN)222 (Stopped - Provider: Ioana Davalos RN)2255 (Restarted - Provider: Ioana Davalos RN) 0104 (Rate Change - Provider: Ioana Davalos RN)0200 (Rate Verify - Provider: Ioana Davalos RN)0315 (Stopped - Provider: Ioana Davalos RN)0353 (Rate Change - Provider: Ioana Davalos RN)0501 (Rate Change - Provider: Ioana Davalos RN)0632 (Stopped - Provider: Ioana Davalos RN) lactated ringers infusion (CANCELED) IV, at 75 mL/hr, CONTINUOUS, Starting on 08/13/20 at 1315, Until 08/14/20 at 0734, Routine 1658 (New Bag - Provider: Katia Lima RN) PRN Medication Order 08/12/2020 08/13/2020 08/14/2020 acetaminophen (TYLENOL) tablet 650 mg 650 mg, Oral, EVERY 6 HOURS PRN, Starting on Sat08/10/20 at 1812, Until 08/14/20 at 1659, Other (See Comment), See admin instructions, Routine 1018 (Given - Provider: Amalia Galindo RN)2039 (Given - Provider: Yumiko Duron RN) bisacodyL (DULCOLAX) rectal suppository 10 mg 10 mg, Rectal, DAILY PRN, Starting on Sat08/10/20 at 1812, Until 08/14/20 at 1659, Constipation, Routine diphenhydrAMINE (BENADRYL) tablet 25 mg 25 mg, Oral, EVERY 8 HOURS PRN, Starting on Sat08/10/20 at 1812, Until 08/14/20 at 1659, Itching, Routine, Previous Med: diphenhydrAMINE (BENADRYL) 25 mg tablet - Orig Sig - Take 1 Tablet (25 mg) by mouth every 8 hours as needed for Itching. 0945 (Given - Provider: Amalia Galindo RN)173 (Given - Provider: mAalia Galindo RN) 924 (Given - Provider: Elke Rockwell RN)2010 (Given - Provider: Ioana Davalos RN) docusate sodium (COLACE) capsule 100 mg 100 mg, Oral, TWO TIMES DAILY PRN, Starting on Sat08/10/20 at 1812, Until 08/14/20 at 1659, Constipation, Routine 2010 (Given - Provider: Ioana Davalos RN) HYDROmorphone (DILAUDID) 2 mg/mL injection 0.5 mg (CANCELED) 0.5 mg, IV, EVERY 4 HOURS PRN, Starting on Sat08/10/20 at 1812, Until 08/14/20 at 0733, Pain (See admin instructions), Routine 09 (Given - Provider: Elke Rockwell RN)1332 (Given - Provider: Elke Rockwell RN)173 (Given - Provider: Katia Lima RN)2118 (Given - Provider: Ioana Davalos RN) 211 (Given - Provider: Ioana Davalos RN) LORazepam (ATIVAN) tablet 1 mg 1 mg, Oral, TWO TIMES DAILY PRN, Starting on Sat08/10/20 at 1812, Until 08/14/20 at 1659, Anxiety, Routine, Previous Med: LORazepam (ATIVAN) 1 mg tablet - Orig Sig - Take 1 Tablet (1 mg) by mouth 2 times daily as needed for Anxiety. metoclopramide (REGLAN) 5 mg/mL injection 10 mg 10 mg, IV, EVERY 6 HOURS PRN, Starting on Sat08/10/20 at 2339, Until 08/14/20 at 1659, Nausea/Emesis, Routine 1018 (Given - Provider: Amalia Galindo RN)181 (Given - Provider: Amalia Galindo RN) 09 (Given - Provider: Elke Rockwell RN) ondansetron (ZOFRAN ODT) tablet 4 mg 4 mg, Oral, EVERY 6 HOURS PRN, Starting on 08/10/20 at 1812, Until 08/14/20 at 1659, Nausea/Emesis, Routine, Previous Med: ondansetron (ZOFRAN ODT) 4 mg Tablet, Rapid Dissolve - Orig Sig - Dissolve 1 tablet on top of tongue, then swallow with saliva every 6 hours as needed for nausea/vomiting. ondansetron (ZOFRAN) 4 mg/2 mL injection 4 mg 4 mg, IV, EVERY 6 HOURS PRN, Starting on 08/13/20 at 1749, Until 08/14/20 at 1659, Nausea/Emesis, Routine 1811 (Given - Provider: Katia Lima RN) oxyCODONE (ROXICODONE) tablet 10 mg 10 mg, Oral, EVERY 4 HOURS PRN, Starting on 08/10/20 at 1812, Until 08/14/20 at 1659, Pain (See admin instructions), Routine 1438 (Given - Provider: Elke Rockwell RN)2010 (Given - Provider: Ioana Davalos RN) 0008 (Given - Provider: Ioana Davalos RN) oxyCODONE (ROXICODONE) tablet 5 mg 5 mg, Oral, EVERY 4 HOURS PRN, Starting on 08/10/20 at 1812, Until 08/14/20 at 1659, Pain (See admin instructions), Routine 0541 (Given - Provider: Yumiko Duron RN)0945 (Given - Provider: Amalia Galindo RN)1730 (Given - Provider: Amalia Galindo RN)2227 (Given - Provider: Yumiko Duron RN) 0530 (Given - Provider: Yumiko Duron RN) sodium chloride (OCEAN) 0.65 % nasal soln 2 Twisp 2 Twisp, Both Nostrils, EVERY 15 MINUTES PRN, Starting on Katie 08/11/20 at 1726, Until 08/14/20 at 1659, Congestion, Routine documented in this encounter Additional Health Concerns Assessment Noted Time PHQ-9 Depression Total Score: 1 08/11/19 21 6:30 PM CDT documented as of this encounter 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
--- OUTSIDE RECORDS SUMMARY | 2024-05-03 20:40 | XMS_ITS | Encounter Summary ---
Author Organization [facility] Address [address] [place] [address] Care Team Providers Care [facility] Name Role Phone Guerrero Middleton PA-C Primary Care Provide r Encounter Details Date Type Department Care Team (Latest Contact Info) Description 09/15/2020 11:20 AM CDT - 09/15/2020 11:59 PM T Hospital Encounter [facility] [place] A [address] [place] [id number] Prudence Gates MD [address] [place] [address] Discharge Disposition: Home or Self Care Social [...] any clubs o r organizations such as episcopalian groups, unions, fraternal or athletic groups, or [...] (Formerly [facility] - [facility] [address] [place] [address] Marlys Mayer MD [address] [place] [address] documented as of this encounter Procedures Procedure Name Priority Date/Time Associated Diagnosis Comments XR HAND 3+ VW RIGHT Routine 09/15/2020 1 2:32 PM CDT Acquired hypothyroidism Wrist pain, acute, right Uncontrolled type 2 diabetes mellitus with insulin therapy Familial hypertriglyceridemi a Depression with anxiety documented in this encounter Results * XR HAND 3+ VW RIGHT (09/15/2020 12:32 PM CDT) Anatomical Region Laterality Modality Wrist / Hand Computed Radiogr aphy 09/15/2020 12:3 2 PM CDT Impressions 09/15/2020 2:11 PM CDT IMPRESSION: 1. Unremarkable right hand radiographs. If symptoms persist, consider follow-up radiographs in 7-10 days. DICTATION LOCATION: Location [address] [place] [address] Narrative 09/15/2020 2:11 PM CDT XR HAND [...] follow-up radiographs in 7-10 days. DICTATION LOCATION: [address] Prudence Gates MD DIAGNOSTIC IMAGIN G ORDERABLES documented in this encounter Visit Diagnoses Diagnosis Acquired hypothyroidism Unspecified hypothyroidism Wrist pain, acute, [...] documented as of this encounter Care Teams [facility] Relationship Specialty Start Date End Date Guerrero Middleton PA-C PCP - General Physician Sat Instructor 02/13/18 documented as of this encounter
--- OUTSIDE RECORDS SUMMARY | 2024-05-03 20:40 | XMS_ITS | Encounter Summary ---
Author Organization [facility] Address [address] [place] [address] Care Team Providers Care School Crossing Guard Name Role Phone Guerrero Middleton PA-C Primary Care Provide r Reason for Visit * Reason Comments Abdominal Pain Pt presents to the E R for abdominal pain that started yesterday. Pt reports a hx of pancreaitis. Pt reports vomiting 2 times today and multiple episodes of diarrhea. Pt denies fevers and chills but reports hot flashes. * Auth/Cert Specialty Diagnoses / Procedures Referred By Contac t Referred To Contact Oncology [facility] Oncology [address] [place] [address] Referral ID Status Reason Start Date Expiration Date Visits Re quested Visits Authorized [id number] 1 1 Encounter Details Date Type Department Care Team (Late st Contact Info) Description 07/10/2020 7:51 PM CDT - 07/12/2020 4:12 PM CDT Emergency [facility] Oncology [address] [place] [address] Eliel Duran MD NO ADDRESS ON FILE Loki Vences MD [address] [place] [address] Leonel Valadez DO [address] [place] [address] Puja Pagan MD [address] [facility] [address] [place] [id number] Recurrent pancreatitis Discharge Disposition: Home or Self [...] often do you attend chur ch or bahai services? Never 08/21/2018 Do you belong to [...] Sign Reading Time Taken Comments Blood Pressure 110/51 07/12/2020 12:00 PM CDT Pulse 68 07/12/2020 12:00 PM CDT Temperature 36.7 ??C (98.1 ??F) 07/12/2020 12:00 PM C DT Respiratory Rate 18 07/12/2020 12:00 PM CDT Oxygen Saturation 96% 07/12/2020 12:00 PM CDT Inhaled Oxygen Concentration - - Weight 83.9 kg (185 lb) 07/10/2020 7:48 PM CDT Height 165.1 cm (5' 5 ) 07/10/2020 7:48 PM CDT Body Mass Index 30.79 07/10/2020 7:48 PM CDT documented in this encounter Discharge Summaries * Alber Rod MD - 07/12/2020 3:26 PM CDT Images from the original note were not included. [facility] Adult Discharge Summary Linda Doss 44 y.o. female 1975 CSN: [id number] Date of Admission: 07/10/2020 Date of Discharge: 07/12/2020 Discharging Physician: Alber Rod MD LOS: 1 day PCP: Guerrero Middleton PA-C Code Status at Discharge: Full Code Dispo: Home Labs and studies from this hospitalization needing follow up: ?? None Follow-up: You must follow up with Guerrero Middleton PA-C in 1 week Admitting Dx and Chief Complaint Chief Complaint Patient presents with ??? Abdominal Pain Pt presents to the ER for abdominal pain that started yesterday. Pt reports a hx of pancreaitis. Ptreports vomiting 2 times today and multiple episodes of diarrhea. Pt denies fevers and chills but reports hot flashes. Recurrent pancreatitis Discharge Diagnoses and Relevant Hospital Course: Active Hospital Problems Diagnosis ??? Recurrent pancreatitis ??? Type 2 diabetes mellitus without complication, with long-term current use of insulin ??? Hypertriglyceridemia ??? Hypothyroidism ??? Metabolic syndrome ??? PCOS (polycystic ovarian syndrome) Resolved Hospital Problems No resolved problems to display. Linda Doss is a 44 y.o. female with PMH of familial hypertriglyceridemia, chylomicronemia and recurrent pancreatitis presented to [facility] ED 06/12/2020 with abdominal pain for 2 days. She complained of epigastric and left upper quadrant pain with radiation to the back, associated with nausea, nonbloody diarrhea and headache but no history of vomiting, fever, chills. She reported that this pain was similar to her prior episodes of pancreatitis. She is supposed to get apheresis biweekly and missed her last one on 06/29/2020. She denied alcohol abuse and has no history of gallstone disease. On presentation, she was hemodynamically stable, afebrile. Labs remarkable for TG level of 2094, lipase level of 48. CT 07/10/2020 presentation noted resolution of peripancreatic inflammatory changes & Resolution of low-density focus in the pancreatic tail with no acute disease. She clinically had acute pancreatitis similar to her prior episodes with history of relief with apheresis. Pain control was achieved by continue NEUROLOGY TEACHER oxycodone 10 mg every 4h prn & IV Dilaudid as needed for breakthrough. She underwent inpatient apheresis x1 session on 07/11/2020; follow-up EGD 07/12/2020 was 518. She reported resolution of her nausea and tolerated her full liquid diet with no significant pain. After discussion with the patient, she is being discharged in stable condition and instructed to advance her diet at home as she deems comfortable. She has been given new scripts for her oxycodone 10 mg x 12 tablets and ibuprofen as needed for pain; Zofran as needed for nausea and diphenhydramine as needed for itching. Instructed follow-up with her PCP within 1 week of discharge and call to schedule a follow-up. Dr. Arteaga to schedule her elective apheresis. Nutritional status and in-house recommendations: Current Diet and/or Nutritional Supplementation ordered: DIET FULL LIQUID Discharge medications and new prescriptions: Medication List START taking these medications diphenhydrAMINE 25 mg tablet Commonly known as: BENADRYL Take 1 Tablet (25 mg) by mouth every 8 hours as needed for Itching. Signed by: Alber Rod MD Quantity: 16 Tablet Refills: 0 ibuprofen 400 mg tablet Commonly known as: MOTRIN Take 1 Tablet (400 mg) by mouth every 6 hours as needed for mild pain Signed by: Alber Rod MD Quantity: 20 Tablet Refills: 0 ondansetron 4 mg Tablet Commonly known as: ZOFRAN Take 1 Tablet (4 mg) by mouth every 8 hours as needed for Nausea/Emesis. Signed by: Alber Rod MD Quantity: 12 Tablet Refills: 0 CHANGE how you take these medications fenofibrate 160 mg Tablet Commonly known as: LOFIBRA What changed: See the new instructions. TAKE 1 TABLET BY MOUTH EVERY DAY Signed by: Prudence Gates MD Quantity: 90 Tablet Refills: 1 oxyCODONE 10 mg tablet Commonly known as: ROXICODONE What changed: ?? when to take this ?? reasons to take this Take 1 Tablet (10 mg) by mouth every 8 hours as needed for break-through pain. Max Daily Amount: 3 tablets Signed by: Alber Rod MD Quantity: 12 Tablet Refills: 0 CONTINUE taking these medications citalopram 40 mg [...] Each Refills: 1 Generic drug: Blood-Glucose Transmitter empagliflozin 25 mg tablet Commonly known as: JARDIANCE Take 1 tablet by mouth early in the morning. Signed by: Prudence Gates MD Quantity: 30 Tablet Refills: 6 Fish Oil-Manlius-3 Fatty Acids 360-1,200 mg Capsule Take 2 [...] duplicate medications found. Review medication list carefully. Where to Get Your Medications These medications were sent to [address] [place] [phone] Hours: Retail 8 AM - 12 AM Daily / ED Service 10 AM - 12 AM Daily ?? diphenhydrAMINE 25 mg tablet ?? ibuprofen 400 mg tablet ?? ondansetron 4 mg Tablet ?? oxyCODONE 10 mg tablet Consultants: None Brief Synopsis of Diagnostic Studies This Admission (Please see full report for details): CT ABDOMEN PELVIS W CONTRAST 07/10/20 IMPRESSION: ?? 1. No acute abnormality in the abdomen or pelvis. ?? 2. Resolution of peripancreatic inflammatory changes. Resolution of low-density focus in the pancreatic tail. Discharge Lab Data (Please note date of lab as some may have preceeded admission) Lab Results Component Value Date/Time WBC 6.1 07/12/2020 05:00 AM HEMOGLOBIN 11.8 07/12/2020 05:00 AM HEMATOCRIT 37.8 07/12/2020 05:00 AM PLATELETS 209 07/12/2020 05:00 AM SODIUM 136 07/10/2020 08:08 PM CHLORIDE 95 (L) 07/10/2020 08:08 PM POTASSIUM 4.4 07/10/2020 08:08 PM CO2 25 07/10/2020 08:08 PM BUN 14 07/10/2020 08:08 PM CREATININE 0.70 07/10/2020 08:08 PM GLUCOSE 212 (H) 07/10/2020 08:08 PM INR 0.8 (L) 07/10/2020 08:08 PM AST 20 07/10/2020 08:08 PM ALT 17 07/10/2020 08:08 PM CRP <3.0 07/10/2020 08:08 PM Discharge Exam: BP 110/51 (BP Location: Left arm, Patient Position (BP): Supine) Pulse 68 Temp 98.1 ??F (36.7 ??C) (Oral) Resp 18 Ht 5' 5 (1.651 m) Wt 83.9 kg (185 lb) SpO2 96% BMI 30.79 kg/m?? Last documented weight: Weight: 83.9 kg (185 lb) (07/10/201947) Physical Exam HEENT:??Head is NC/AT, ??PERRL. EOMI, conjuctiva and sclera are nonicteric, ??oropharynx is moist without obvious lesions Neck: supple, trachea midline, no thyromegaly, no significant adenopathy Lungs:??CTA bilaterally CV: ??RRR, nl S1, S2 Abd:??Positive BS, soft, mild TTP epigastrium Ext: no clubbing, cyanosis, or edema Skin:??no obvious rashes Neuro:??alert and oriented and answers questions appropriately. ??CN 2-12 grossly intact Discharge Condition: improving. Activity: activity as tolerated. Diet: Diabetic diet (specify calories / restrictions) Wound Care: None needed Primary Emergency Contact: Extended Emergency Contact Information Primary Emergency Contact: José Miguel Doss [facility] Mobile Relation: Spouse Signed: Alber Rod MD 07/12/2020, 3:28 PM Associated attestation - Puja Pagan MD - 07/12/2020 4:09 PM CDT [facility] Adult Hospitalist Attending Note Patient seen and examined with the resident team (Dr. Rod) on 07/12/2020. I have reviewed the noteas written and agree with the assessment and plan with the exceptions, if any, noted below. Objective: NAD, lungs clear, heart regular, ab soft, mildly tender to epigastric area, no leg edema Assessment/Plan: Acute pancreatitis due to hypertriglyceridemia - Tolerating diet and NEUROLOGY TEACHER meds - OP lipid pheresis scheduled More than 35 minutes were spent in the care of this patient today; more than 50% was spent in discussion of expected course of disease, discussion of prognosis, discharge planning, coordination of care and discussion of lab and test results. Puja Pagan MD [facility] Hospitalist Please page the resident team via the eList. documented in this encounter Discharge Instructions * Discharge Instructions* Alber Rod MD - 07/12/2020 2:49 PM CDT Drink plenty of fluids and take Tylenol as needed Your discharging physicians are Puja Pagan MD /Alber Rod MD and may be reached at [phone] for any questions or concerns until you see your primary care physician. FOLLOW-UP Follow up with Guerrero Middleton PA-C within 7 days of discharge. This post hospital follow up visit presents a critical opportunity to address the conditions that precipitated your hospitalization andto review the new medications prescribed to your during your stay. PRESCRIPTIONS GIVEN? No new scripted given SELF CARE: getting rest, eating well and increasing your activity appropriately are all excellent ways to return to your usual state of health prior to this hospital stay. ACTIVITY: Your activity level is: no restrictions. DIET Your diet is: Diabetic diet (specify calories / restrictions). * Attachments The following attachments cannot be sent through Care Everywhere. * Abdominal Pain (Haitian) * Diabetes: Counting Carbohydrates (Haitian) * Pancreatitis: Chronic Diet (Haitian) * Statins: Diabetes: General Info (Haitian) documented in this encounter Medications at Time of Discharge Medication Sig Dispensed Refills Start Date End Date traZODone (DESYREL) 100 mg tablet Take 100 mg by mouth daily at bedtime . levothyroxine 200 mcg tablet Take 200 mcg by mouth. 10/28/2018 09/26/2023 metFORMIN (GLUCOPHAGE) 500 mg tablet Take 500 mg by mouth 2 times daily. 06/05/2018 09/26/2023 ibuprofen (MOTRIN) 400 mg tablet Take 1 Tablet (400 mg) by mouth every 6 hours as needed for mild pain 20 Tablet 07/12/2020 07/19/2020 ondansetron (ZOFRAN) 4 mg Tablet Take 1 Tablet (4 mg) by mouth every 8 hours as needed for Nausea/Emesis. 12 Tablet 07/12/2020 07/16/2020 insulin aspart U-100 (NovoLOG Flexpen U-100 Insulin) [...] as of this encounter Progress Notes * Robyn Hernandez RN - 07/11/2020 2:47 PM CDT Plasma exchange #1 completed using R and L chest Apheresis ports. 1.0 Volume, 100% fluid balance using 5% Albumin as replacement fluid. Pt tolerated well. Will continue Plasmapheresis daily until triglyceride level is less than 500. * Rosanne Toth GN - 07/11/2020 4:45 AM CDT ?UNDRESS AND ASSESS FOR ALL ADMISSIONS AND TRANSFERS: Remove all existing dressings and assess all wounds upon admission (unless instructed by physician). Undress and Assess performed by: bedside coworker Rosanne WELSH and bedside coworker Hanh SANDHU on admission to oncology 530 Chin Score: Chin Score: 21 (07/11/20 0240) 1. Patient does not have skin breakdown. [...] surface utilized? No If yes, which one?: N/A i.e. impaired mobility, bariatric, malnourished, existing pressure injury. 4. Is the patient a paraplegic/quadriplegic? No If so, if stable spine immediately place on specialty surface. If unstable spine or new spinal injury, consult physician (per facility process) and consult wound care services. 5. Is a medical support specialist in place?no If yes, remove device/brace/splint to [...] patient q 2 h, elevate heels etc.) N/A 9. Was the Skin Care Treatment: Pressure Injury/Lower Extremity Ulcer Pathway initiated, and appropriate interventions selected? N/A(i.e. cleanse and apply silicone border dressing to skin tears, cleanse and apply antifungal to affected skin folds and apply soft linen or Interdry between folds etc.). Wound care consult was not initiated. [facility] Skin Care Injury Prevention and Treatment Protocol [facility] Approved by: [facility] - Medical Executive Committee Approval Date: [...] found in the Wound Care Algorithm. * Jovany Trevino MD - 07/11/2020 2:35 AM CDT AMAYA CARRASCO HOSPITALIST NOTE 07/11/20 2:36 AM Problem: Pt admitted from the ED & has not been seen by hospitalist yet. Pt is requesting painmeds. Pain is a 7/10. Any interventions? Vitals: 07/11/20 0010 07/11/20 0100 07/11/20 0130 07/11/20 0214 Temp: 97.8 ??F (36.6 ??C) Pulse: 71 77 82 72 Heart Rate: 71 bpm 77 bpm 82 bpm BP: 103/60 (!) 90/49 108/61 110/68 Mean Arterial Pressure: 73 MM HG 60 MM HG 77 MM HG 78 MM HG Resp: 18 SpO2: 93% 95% 97% 98% Intervention/Follow up/Discussion: 44yo admitted with abdominal pain. Has not yet been seen by hospitalist. In ER, pt was given IV morphine for pain. Will place order for IV morphine 2mg Q3h x 2 doses. Further orders once seen by hospitalist. Jovany Trevino MD ADDENDUM Time: 07/11/20 4:19 AM Problem: Pt still reporting pain 7/10 after receiving morphine at 3:06am. Any new interventions? Intervention/Follow up/Discussion: Will change morphine to IV dilaudid. Q3H prn for up to 2 doses. Further pain management per admitting hospitalist. Jovany Trevino MD documented in this encounter H&P Notes * Alber Rod MD - 07/11/2020 8:28 AM CDT [facility] Internal Medicine Teaching Service History & Physical Patient Name: Linda Doss Attending Physician: Leonel Valadez DO Primary Care Provider: Guerrero Middleton PA-C Date of Admission: 07/10/2020 Date of Service: 07/11/2020 Chief Complaint: Abdominal pain HPI: Linda Doss is a 44 y.o. female with PMH of familial hypertriglyceridemia, chylomicronemia and recurrent pancreatitis presented to [facility] ED 06/12/2020 with abdominal pain that started2 days ago. She is complaining of epigastric and left upper quadrant pain with radiation to the back, which hasbeen a constant dull ache with occasional stabbing. She has associated nausea, nonbloody diarrhea and headache with it but no history of vomiting, fever, chills. She reports that this pain is similar to her prior episodes of pancreatitis. She is supposed to getapheresis biweekly and missed her last one on 06/29/2020. Denies alcohol abuse and no history of gallstone disease. CT 07/10/2020 noted resolution of peripancreatic inflammatory changes & Resolution of low-density focus in the pancreatic tail with no acute disease. Pain control was achieved by IV Dilaudid and she was admitted for further management. On my history, she reports some abdominal discomfort but is resting peacefully. Past Medical History: Past Medical History: Diagnosis [...] of left power flow port 05/11/2019 ??? UT ESOPHAGOGASTRODUODENOSCOPY TRANSORAL DIAGNOSTIC N/A 03/08/2018 ESOPHAGOGASTRODUODENOSCOPY performed by Ceasar Vega MD at [facility] GI [facility] Prior to Admission Medications: Prior to Admission Medications Prescriptions Last Dose Informant Patient Reported? Taking? Dexcom G6 Sensor Device No No Sig: Change sensor every 10 days. (9 sensors = 90 days) Dexcom G6 Transmitter Device No No Sig: Change transmitter every 90 days LORazepam (ATIVAN) 1 mg tablet No No Sig: Take 1 Tablet (1 mg) by mouth 2 times daily as needed for Anxiety. citalopram (CeleXA) 40 mg tablet Yes No Sig: Take 40 mg by mouth daily at bedtime. empagliflozin (JARDIANCE) 25 mg tablet No No [...] 1 Tablet (10 mg) by mouth every 4 hours as needed for Pain. Max Daily Amount: 60 mg pantoprazole (PROTONIX) 40 mg Tablet, Delayed Release [...] Medications: None Allergies: Allergies Allergen Reactions ??? Green Pepper Hives ??? Adhesive Unknown ??? Aspartame Headache All artificial sweeteners. ??? Adhesive Tape-Silicones Hives Family History: family history includes Diabetes in her father, maternal grandmother, mother, and paternal grandmother; Heart Disease in her maternal grandmother and mother; High Cholesterol in her father and mother; Hypertension in her father; Stroke in her mother; Thyroid Disease in her mother. Social History: reports that she has been smoking cigarettes. She has a 18.00 pack-year smoking history. She has never used smokeless tobacco. She reports that she does not drink alcohol or use drugs. Review of Systems: Constitutional: no fever, chills, appetite changes, weight loss Eyes: no eye pain, visual loss, blurry vision Ears: no hearing loss, or tinnitus Mouth: no oral ulcers, sore throat Endocrine: no polyuria, polydipsia Pulm: no shortness of breath, cough, hemoptysis CV: no chest pain, PND, orthopnea, lower extremity edema GI: no BRBPR, melena, Constipation: Diarrhea+ : no hematuria, dysuria, frequency; Musc: no swollen joints Skin: no new skin rashes Neuro: no focal motor or sensory changes. Psychiatric: no hallucinations Objective: Body mass index is 30.79 kg/m??. BP 115/61 (BP Location: Left arm, Patient Position (BP): Sitting) Pulse 84 Temp 97.8 ??F (36.6 ??C) (Oral) Resp 18 Ht 5' 5 (1.651 m) Wt 83.9 kg (185 lb) SpO2 95% BMI 30.79 kg/m?? , Temp (24hrs), Av.9 ??F (36.6 ??C), Min:97.8 ??F (36.6 ??C), Max:98.1 ??F (36.7 ??C) Physical Exam HEENT: Head is NC/AT, PERRL. EOMI, conjuctiva and sclera are nonicteric, oropharynx is moist without obvious lesions Neck: supple, trachea midline, no thyromegaly, no significant adenopathy Lungs: CTA bilaterally CV: RRR, nl S1, S2 Abd: Positive BS, soft, TTP epigastrium Ext: no clubbing, cyanosis, or edema Skin: no obvious rashes Neuro: alert and oriented and answers questions appropriately. CN 2-12 grossly intact. ? Date Base: CBC: Recent Labs 07/10/202007 WBC 10.4* HGB 15.4* HCT 44.3* PLT 287 MCV 88.6 Recent Labs 07/10/202007 NA 136 K 4.4 CL 95* CO2 25 ANIONGAP 16 CA 10.0 GLUCOSE 212* BUN 14 CREAT 0.70 Results for orders placed or performed during the hospital encounter of 07/10/20 (from the past 24 hour(s)) CBC WITH DIFFERENTIAL Result Value Ref Range WBC 10.4 (H) 4.0 - 9.8 K/uL RBC 5.00 (H) 3.90 - 4.90 M/uL HEMOGLOBIN 15.4 (H) 11.8 - 14.8 g/dL HEMATOCRIT 44.3 (H) 35.5 - 44.0 % MCV 88.6 82.0 - 99.0 fL MCH 30.8 27.2 - 32.6 pg MCHC 34.8 31.5 - 35.5 g/dL RDW 13.2 11.5 - 14.5 % RDW-STDEV 43.1 37.1 - 48.7 fL PLATELETS 287 140 - 350 K/uL MPV 9.5 9.3 - 12.4 fL NEUTROPHILS 65 % LYMPHOCYTES 28 % MONOCYTES 5 % EOSINOPHILS 1 % BASOPHILS 0 % IMMATURE GRANULOCYTES 1 % NEUTROPHIL ABSOLUTE 6.79 1.90 - 7.00 K/uL LYMPHOCYTE ABSOLUTE 2.94 0.70 - 4.50 K/uL MONOCYTE ABSOLUTE 0.48 0.10 - 1.30 K/uL EOSINOPHIL ABSOLUTE 0.11 0.00 - 0.70 K/uL BASOPHILS ABSOLUTE 0.03 0.00 - 0.20 K/uL IMMATURE GRANULOCYTES ABSOLUTE 0.05 (H) 0.00 - 0.03 K/uL COMPREHENSIVE METABOLIC PANEL Result Value Ref Range SODIUM 136 136 - 145 mmol/L POTASSIUM 4.4 3.5 - 5.0 mmol/L CHLORIDE 95 (L) 98 - 107 mmol/L CO2 25 22 - 29 mmol/L CALCIUM 10.0 8.6 - 10.2 mg/dL BUN 14 6 - 20 mg/dL CREATININE 0.70 0.51 - 0.95 mg/dL GLUCOSE 212 (H) 74 - 99 mg/dL TOTAL PROTEIN 7.3 6.7 - 8.6 g/dL ALBUMIN 4.5 3.5 - 5.2 g/dL BILIRUBIN TOTAL 0.2 (L) 0.3 - 1.2 mg/dL ALKALINE PHOSPHATASE 77 35 - 104 U/L AST 20 <33 U/L ALT 17 <34 U/L GFR >60 >=60 mL/min/1.73 sq meter GFR, >60 >=60 mL/min/1.73 sq meter ANION GAP 16 8 - 16 mmol/L C-REACTIVE PROTEIN Result Value Ref Range CRP <3.0 <5.0 mg/L LIPASE Result Value Ref Range LIPASE 48 13 - 60 U/L ETHANOL LEVEL Result Value Ref Range ETHANOL <10.00 <10.00 mg/dL ETHANOL % <0.01 %w/v PROTIME-INR Result Value Ref Range PROTIME 11.6 (L) 12.7 - 15.1 Seconds INR 0.8 (L) 0.9 - 1.1 TRIGLYCERIDE Result Value Ref Range TRIGLYCERIDE 2,094 (H) <150 mg/dL URINALYSIS WITH REFLEX MICROSCOPIC Result Value Ref Range COLOR UA Pale Yellow Pale to Dark Yellow CLARITY UA Clear Clear SPECIFIC GRAVITY UA 1.027 1.003 - 1.035 PH UA 7.0 5.0 - 8.0 LEUKOCYTE ESTERASE UA Negative Negative NITRITE UA Negative Negative PROTEIN UA Negative Negative GLUCOSE UA 3+ (A) Negative KETONES UA Negative Negative UROBILINOGEN UA Normal <2.0 mg/dL BILIRUBIN UA Negative Negative BLOOD UA Negative Negative POC GLUCOSE Result Value Ref Range POC GLUCOSE 153 (H) 74 - 99 mg/dL CRIMPER OPERATOR NAME UYEN HILL Assessment and Plan: Abdominal pain: DDx: Acute on chronic versus chronic pancreatitis? Clinical signs of pancreatitis but no objective data including normal lipase and no acute inflammation on CT Established history of similar abdominal pain due to pancreatitis with high TG levels resolved after T levels restored <500. Patient missed her scheduled apheresis 2 weeks ago; next one scheduled for tomorrow. IR has been contacted for inpatient apheresis. Previously developed hypotension during last hospitalization with a pheresis. Continue NEUROLOGY TEACHER oxycodone 10 mg every 4h as needed and add IV Dilaudid 0.5 every 3 H for breakthrough pain Continue NEUROLOGY TEACHER fenofibrate, Vascepa and statin. Check daily TG levels. Hypothyroidism-continue Synthroid from NEUROLOGY TEACHER. Tobacco use-cessation counseling Type 2 diabetes mellitus: Patient on Lantus 32 every morning and 35 every afternoon & sliding scale NEUROLOGY TEACHER. Start patient on Lantus 36 twice daily MD TORRES. GERD (gastroesophageal reflux disease): continue NEUROLOGY TEACHER PPI MDD : Continue NEUROLOGY TEACHER Celexa and Ativan DVT PRX:Enoxaparin Indwelling Lines/Devices: Peripheral IV Pettit: absent; reason: N/A Patient's activity prior to admission: independent Patient lives with their family in a single family home PT and OT: No Diet: Clear Liquid Nutritional Supplementation: N/A Code Status: Full Code Current Planned Disposition - Home which I anticipate will be completed 2-3 days I discussed the assessment of plan for the above patient with Leonel Gatica, DO Alber Rod MD 07/11/2020 11:50 AM. Plan discussed with the patient, questions answered; patient agrees with current plan. More than 70 minutes were spent in the care of this patient today General Admit to Med Surg pathway initiated This note may have been transcribed using [employer] speaking computerized voice recognition without a human ict managers. This report may or may not have been adjusted for typographical, grammatical and syntax errors. This patient is covered by Internal Medicine residents To reach Internal Medicine covered patients: Saturday-Saturday 7 AM- 7 PM: Please contact the resident via secure chat. The resident responsible for the patient will be on the Treatment Team listed as Resident If no response you may call the credit control administrator marketing research intern at zone phone [phone]. If no response you may call the credit control administrator senior resident at zone phone [phone] If no response please contact the attending of record via secure chat. 7 PM to 7 AM: The long call/night float resident should be listed as Resident on the treatment team and can be reached via secure chat. If no response you may call the credit control administrator marketing research intern at zone phone [phone]. If no response you may call the credit control administrator senior resident at zone phone [phone] If no response please contact the Rapid Access Hospitalist via secure chat Saturday and Saturday: 7 AM-12 PM: Please contact the resident via secure chat. The resident responsible for the patient will be on the Treatment Team listed as Resident 12 PM-7 AM: The long call/night float resident should be listed as Resident on the treatment teamand can be reached via secure chat. If no response call the credit control administrator marketing research intern at [facility] phone [phone]. If no response you may call the credit control administrator senior resident at [facility] phone [phone] If no response please contact the Rapid Access Hospitalist via secure chat Associated attestation - Leonel Valadez DO - 07/11/2020 12:15 PM CDT [facility] Adult Hospitalist Attending Note Patient seen and examined with the resident team (Dr. Rod) on 07/11/2020. I have reviewed the noteas written and agree with the assessment and plan with the exceptions, if any, noted below. Objective: NAD, breathing even and unlabored, abdomen soft, no edema, conversational and oriented to person, place, time Assessment/Plan: Clinical acute pancreatitis with hypertriglyceridemia: Clinically she has pancreatitis - epigastricpain, symptoms consistent with previous episodes. CT A/P and lipase are both normal though. Known familial hypertriglyceridemia - will initiate lipid pheresis in hospital. TG level 2,094. Monitor blood pressure closely - she had hypotension with previous apheresis. Leonel Valadez DO [facility] Adult Hospitalist Please contact assigned resident via [employer] secure messaging. documented in this encounter ED Notes * Eduarda Morrison RN - 07/11/2020 1:37 AM CDT scroll saw operator called and made aware of ready bed. Family updated on visitor policy. * Eduarda Morrison RN - 07/11/2020 1:26 AM CDT Patient/family has been informed about benefits and any potential clinically significant side effects or other concerns regarding the administration of the drug they have just been given. * Eduarda Morrison RN - 07/11/2020 1:14 AM CDT This RN to bedside with MD to talk with pt and pt's . Pt is tearful and rocking back and forth. Pt stating I just don't know what is going on. Pt asking for more pain medication. MD aware. * Eduarda Morrison RN - 07/11/2020 12:12 AM CDT Pt repositioned in the bed. VSS. remains at bedside. * Eduarda Morrison RN - 07/10/2020 11:09 PM CDT Report received from Hayes OLGUIN. Pt has fluids going on a pressure bag. Pt is on a full cardiac cath lab manager, NiBP, and pulse ox. * Hayes Garsia RN - 07/10/2020 10:53 PM CDT NS Bolus started at this time. * Hayes Garsia RN - 07/10/2020 10:25 PM CDT Pt to CT. * Hayes Garsia RN - 07/10/2020 9:53 PM CDT Patient/family has been informed about benefits and any potential clinically significant side effects or other concerns regarding the administration of the drug they have just been given. * Hayes Garsia RN - 07/10/2020 8:59 PM CDT Pt c/o pain and that morphine did not help. MD aware. * Hayes Garsia RN - 07/10/2020 8:37 PM CDT This RN agrees with the triage note. Assessment findings performed by this RN are the same as in triage. Pt is A&Ox4. Patient placed on continuous pulse oximetry, cardiac monitoring, and intermittent blood pressures. Her respirations are even and non labored. She speaks in full sentences without difficulty. Bed low locked. Call light in reach. Family at the bedside. * Hayes Garsia RN - 07/10/2020 8:29 PM CDT Patient/family has been informed about benefits and any potential clinically significant side effects or other concerns regarding the administration of the drug they have just been given. * Eliel Duran MD - 07/10/2020 7:45 PM CDT HISTORY OF PRESENT ILLNESS Linda M Fedder, a 44 y.o. female presents to the ED with a Chief Complaint of Abdominal Pain Subjective Documented Triage Chief Complaint: Abdominal Pain 8:07 PM: Linda Doss is a 44 y.o. female with a history of pancreatitis, chronic abdominal pain, type 2 diabetes (on Insulin), hyperlipidemia, chylomicronemia, and tobacco use (one pack of cigarettes per day) who presents to the Emergency Department with complaints of nausea, vomiting, diarrhea, left- sided abdominal pain, left chest pain, and a headache. Patient regularly undergoes plasmapheresis for treatment of chylomicronemia with triglycerides in the thousands. Her last treatment was in May in the hospital, and she is scheduled for plasmapheresis in two days, but states she was not able to wait until then. Patient started having a headache two days ago and developed abdominal pain yesterday. Pain is constant, but she has an intermittent stabbing pain that radiates to her back. She has not taken any medication for pain. Patient vomited twice today and had four episodes of diarrhea. She ate dinner at 5PM which was corned beef and cabbage, but she vomited afterwards. Denies alcohol use. Patient was admitted for pancreatitis on 06/15/20 and discharged home on 06/18/20 with a prescriptionfor Roxicodone. Patient reports she still has her gallbladder. Patient is seen by Dr. Alize Arteaga (Pathology), Dr. Prudence Gates (Endocrinology), and Dr. Marlys Mayer (Cardiology). She states she does not have any heart issues and is only seeing Dr. Mayer as a Lipidologist. Physician(s): PCP: Guerrero Middleton PA-C History provided by: The patient and medical records Arrived by: Private vehicle REVIEW OF SYSTEMS Review of Systems Constitutional: Negative for fatigue. HENT: Negative for sore throat. Respiratory: Negative for cough, chest tightness and shortness of breath. Cardiovascular: Positive for chest pain (left). Gastrointestinal: Positive for abdominal pain (left-sided), diarrhea, nausea and vomiting. Musculoskeletal: Positive for back pain (secondary to abdominal pain). Negative for neck pain. Neurological: Positive for headaches. Negative for dizziness. All other systems reviewed and are negative. PAST MEDICAL HISTORY REVIEWED MEDICAL: Patient has [...] reports that she does not drink alcohol or use drugs. No history on file. Social History Other Topics Concern ??? Not on file ALLERGIES Green pepper, Adhesive, Aspartame, and Adhesive tape-silicones HOME MEDICATIONS Current Discharge Medication List CONTINUE [...] Refills: 0 Associated Diagnoses: Depression with anxiety oxyCODONE (ROXICODONE) 10 mg tablet Take 1 Tablet (10 mg) by mouth every 4 hours as needed for Pain. Max Daily Amount: 60 mg Qty: 30 Tablet, Refills: 0 Associated Diagnoses: Recurrent pancreatitis fenofibrate (LOFIBRA) 160 mg Tablet TAKE 1 TABLET BY MOUTH EVERY DAY Qty: 90 Tablet, Refills: 1 Dexcom G6 Sensor Device Change sensor every 10 days. (9 sensors = 90 days) Qty: 9 Each, Refills: 1 insulin glargine (LANTUS) 100 [...] times daily. Qty: 60 Tablet, Refills: 0 metFORMIN (GLUCOPHAGE) 500 mg tablet Take 2 [...] 40 mg by mouth daily at bedtime. Dexcom G6 Transmitter Device Change transmitter every 90 days Qty: 1 Each, Refills: 1 flash glucose sensor (FreeStyle Torey 14 Day Sensor) Kit 1 sensor every 14 days Qty: 2 Kit, Refills: 6 !! - Potential duplicate medications found. Please discuss with provider. Objective PHYSICAL EXAM INITIAL VS BP: (!) 145/78 (07/10/201947), Heart Rate: 107 bpm (07/10/201947), Resp: 22 (07/10/201947), Pulse: (!) 107 (07/10/201947), Temp: 98 ??F (36.7 ??C) (07/10/201947), Temp src: Oral (07/10/201947),SpO2: 97 % (07/10/201947), Height: 5' 5 (165.1 cm) (07/10/201947), Weight: 83.9 kg (185 lb) (07/10/201947), BMI (Calculated): 30.79 (07/10/201947) No LMP recorded. Patient has had a hysterectomy. Physical Exam Vitals signs and nursing note reviewed. HENT: Head: Normocephalic and atraumatic. Eyes: Pupils: Pupils are equal, round, and reactive to light. Neck: Musculoskeletal: No spinous process tenderness. Vascular: No JVD. Trachea: No tracheal deviation. Cardiovascular: Rate and Rhythm: Tachycardia present. Heart sounds: No murmur. Pulmonary: Effort: No respiratory distress. Breath sounds: No wheezing or rales. Chest: Chest wall: No tenderness. Comments: Port present in right and left upper chest Abdominal: Palpations: Abdomen is soft. There is no mass. Tenderness: There is abdominal tenderness. There is left CVA tenderness. Musculoskeletal: Normal range of motion. General: No tenderness. Skin: General: Skin is warm and dry. Findings: No rash. Neurological: Mental Status: She is alert and oriented to person, place, and time. Cranial Nerves: No cranial nerve deficit. Psychiatric: Behavior: Behavior normal. DIAGNOSTICS LAB: CBC WITH DIFFERENTIAL - Abnormal Result Value WBC 10.4 (*) RBC 5.00 (*) HEMOGLOBIN 15.4 (*) HEMATOCRIT 44.3 (*) MCV 88.6 MCH 30.8 MCHC 34.8 RDW 13.2 RDW-STDEV 43.1 PLATELETS 287 MPV 9.5 NEUTROPHILS 65 LYMPHOCYTES 28 MONOCYTES 5 EOSINOPHILS 1 BASOPHILS 0 IMMATURE GRANULOCYTES 1 NEUTROPHIL ABSOLUTE 6.79 LYMPHOCYTE ABSOLUTE 2.94 MONOCYTE ABSOLUTE 0.48 EOSINOPHIL ABSOLUTE 0.11 BASOPHILS ABSOLUTE 0.03 IMMATURE GRANULOCYTES ABSOLUTE 0.05 (*) COMPREHENSIVE METABOLIC PANEL - Abnormal SODIUM 136 POTASSIUM 4.4 CHLORIDE 95 (*) CO2 25 CALCIUM 10.0 BUN 14 CREATININE 0.70 GLUCOSE 212 (*) TOTAL PROTEIN 7.3 ALBUMIN 4.5 BILIRUBIN TOTAL 0.2 (*) ALKALINE PHOSPHATASE 77 AST 20 ALT 17 GFR >60 GFR, >60 ANION GAP 16 URINALYSIS WITH REFLEX MICROSCOPIC - Abnormal COLOR UA Pale Yellow CLARITY UA Clear SPECIFIC GRAVITY UA 1.027 PH UA 7.0 LEUKOCYTE ESTERASE UA Negative NITRITE UA Negative PROTEIN UA Negative GLUCOSE UA 3+ (*) KETONES UA Negative UROBILINOGEN UA Normal BILIRUBIN UA Negative BLOOD UA Negative PROTIME-INR - Abnormal PROTIME 11.6 (*) INR 0.8 (*) C-REACTIVE PROTEIN - Normal CRP <3.0 LIPASE - Normal LIPASE 48 ETHANOL LEVEL ETHANOL <10.00 ETHANOL % <0.01 RADIOLOGY: CT ABDOMEN PELVIS W CONTRAST Radiologist Impression IMPRESSION: 1. No acute abnormality in the abdomen or pelvis. 2. Resolution of peripancreatic inflammatory changes. Resolution of low-density focus in the pancreatic tail. DICTATION LOCATION: Location 1 - [facility] EKG: Normal sinus rhythm. Rate is 98. Everything is normal. Compared to EKG from 08/09/18, no acute changes. PROCEDURES Procedures MEDICAL DECISION MAKING AND PLAN OF CARE --On initial encounter, patient was seen and examined by me. Discussed plan for basic labs, urinalysis, and EKG. Will give Pepcid, Morphine, and Zofran. 1:11 AM: Patient's symptoms have improved. Updated pt on their lab and EKG results. Patient will bedischarged home with Rx for Zofran, Hyoscyamine, and Percocet. Recommended follow up with PCP. RTERwith worsening sx. Pt understands and agrees with the plan. All questions and concerns addressed. The patient is stable for discharge. ED provider and ED nurse verbally discussed patient plan of careat this time. Patient she is still in a lot of pain and does not want to go home. Patient is adamant they always give me Dilaudid when I am admitted to the hospital. Advised patient at the present time all her labs including her CRP and her CT of the abdomen shows resolution of her pancreatitis. Patient remainedupset and does not want to go home. Discussed with [facility] hospitalist Dr. Vences will admit for pain control and consult Dr. Arteaga for plasmapheresis for her chylomicronemia. Patient requesting more pain medication before she goes up advised patient concern for her hypotension with opioids will give a very small dose. MDM Summary Statement: Patient is a 44-year-old female with history of pancreatitis and chylomicronemia hypothyroidism metabolic syndrome who comes to the emergency room complaining of epigastric pain associated with nausea vomiting and multiple diarrhea. On exam patient had mild tenderness in the epigastric area no guarding no rigidity. Labs were unremarkable CRP was less than 3 patient continued to complain of a lot of pain a CT of the abdomen pelvis was done which showed resolution of her previous pancreatic inflammation. Patient had a hypotensive episode with fentanyl. Patient was given IV fluids which improvedher hypotension. Patient will be admitted for further evaluation for plasmapheresis for her chylomicronemia. Per patient she always gets that done and gets IV Dilaudid when she is in the hospital I have reviewed previous: notes, ECG and labs I have reviewed current: labs and ECG I have reviewed nursing notes related to past medical history, social history, and review of systems and agree, unless otherwise noted. Medications Administered During the ED Stay from 07/10/2020 1945 to 07/11/2020 0210 Date/Time Order Dose Route Action 07/10/20202153 sodium chloride 0.9% bolus solution 1,000 mL 0 mL IV Stopped 07/10/20202028 sodium chloride 0.9% bolus solution 1,000 mL 1,000 mL IV New Bag 07/10/20202014 famotidine PF (PEPCID) 20 mg/2 mL injection 20 mg 20 mg IV Given 07/10/20202023 ondansetron (ZOFRAN) 4 mg/2 mL injection 4 mg 4 mg IV Given 07/10/20202023 morphine 4 mg/mL injection 4 mg 4 mg IV Given 07/10/20202152 fentaNYL PF (SUBLIMAZE) 50 mcg/mL injection 50 mcg 50 mcg IV Given 07/10/2020 2237 iopamidoL (ISOVUE-300) 61 % injection (drawn from multi-use bulk pack) 120 mL 120 mL IV Contrast Given 07/10/2020 2238 sodium chloride flush injection 10 mL 10 mL IV Given 07/11/2020 0130 morphine 4 mg/mL injection 2 mg IV Canceled Entry 07/11/2020 0126 morphine 4 mg/mL injection 2 mg 2 mg IV Given Current Discharge Medication List [...] Refills: 0 Associated Diagnoses: Depression with anxiety oxyCODONE (ROXICODONE) 10 mg tablet Take 1 Tablet (10 mg) by mouth every 4 hours as needed for Pain. Max Daily Amount: 60 mg Qty: 30 Tablet, Refills: 0 Associated Diagnoses: Recurrent pancreatitis fenofibrate (LOFIBRA) 160 mg Tablet TAKE 1 TABLET BY MOUTH EVERY DAY Qty: 90 Tablet, Refills: 1 No Chains G6 Sensor Device Change sensor every 10 days. (9 sensors = 90 days) Qty: 9 Each, Refills: 1 insulin glargine (LANTUS) 100 [...] times daily. Qty: 60 Tablet, Refills: 0 metFORMIN (GLUCOPHAGE) 500 mg tablet Take 2 [...] mg by mouth daily at bedtime. No Chains G6 Transmitter Device Change transmitter every 90 days Qty: 1 Each, Refills: 1 flash glucose sensor (FreeStyle Torey 14 Day Sensor) Kit 1 sensor every 14 days Qty: 2 Kit, Refills: 6 !! - Potential duplicate medications found. Please discuss with provider. LAST VS BP: 104/66 (07/11/20 1440), Heart Rate: 82 bpm (07/11/20 0130), Resp: 14 (07/11/20 1440), Pulse: 86(07/11/20 1440), Temp: 98.1 ??F (36.7 ??C) (07/11/20 1440), Temp src: Oral (07/11/20 1440), SpO2: 95 % (07/11/20 1200) CLINICAL IMPRESSION Final diagnoses: [R10.9] Abdominal pain, unspecified abdominal location (Primary) [E78.2] Mixed hyperlipidemia [K86.1] Chronic pancreatitis, unspecified pancreatitis type [E78.3] Chylomicronemia syndrome [Z72.0] Tobacco use [E11.9, Z79.4] Type 2 diabetes mellitus without complication, with long-term current use of insulin [E44.0] Moderate protein-calorie malnutrition [Z92.89] History of plasmapheresis [Z87.19] History of pancreatitis DISPOSITION, EDUCATION AND MEDICATION RECONCILIATION Medications reconciled. See after visit summary for patient education on discharged patients. ED Disposition ED Disposition Condition User Date/Time Comment Admit Stable Eliel Duran MD Mon Jul 11, 2020 1:17 AM ATTESTATION STATEMENTS This note has been prepared by Milan Daniel acting as a scribe for Dr. Eliel Duran on 07/10/2020 at 8:54 PM. The scribe's documentation has been prepared under my direction and personally reviewed by me, MD Mary , in its entirety on 07/11/20 at 3:20 PM. I confirm that the note above accurately reflects all work, treatment, procedures, and medical decision making performed by me. documented in this encounter Miscellaneous Notes * Care Plan - Rosanne Toth GN - 07/12/2020 3:25 AM CDT Pt reported pain throughout shift. Pain meds administered per the JUN. Pt resting between care. No correctional dose of insulin given this shift, only scheduled. Atarax for itching did not give relief. Physician ordered benadryl which relieved itching. Pt belongings and call light within reach. Pathway Day 1 - Current (INTERDIS PW: HYPERGLYCEMIA, ADULT) Metabolic: Maintain glucose between 110-180 mg/dL when receiving subcutaneous insulin and between 110-160 mg/dL when receiving IV insulin. Outcome: Not Met * Care Plan - Kathy Kumar RN - 07/11/2020 4:41 PM CDT Problem: Discharge Planning Goal: Identify discharge needs upon admission and through discharge Description: Outcome: Progressing Clinical documentation reviewed. Comprehensive Discharge Planning Risk Assessment was completed. Readmission Risk (patient becomes high risk with a score of 8 or greater) 5 Total Score (Last filed: Jul 11, 2020 0601) 5 Prior Hospitalizations Total Score of 9 or below does not identify immediate needs for discharge. Age Score: 0 Disability Score: 0 Prior Living Status Score: {0 Mobility Limitation Score: 0 TOTAL SCORE: [address] consult if needs for discharge are identified. Care Management will continue to follow for discharge planning. Kathy Kumar RN, BSN Chro [phone] * Care Plan - Uyen Hill RN - 07/11/2020 4:36 PM CDT Linda has had consistent complaints of pain throughout the day; Dilaudid and Roxicodone alternated per JUN. Plasma exchange completed at bedside. Plan to continue plasmapheresis daily until triglyceride level < 500. Clear liquid diet, tolerating well. Ambulates independently in room. * Care Plan - Rosanne Toth GN - 07/11/2020 5:03 AM CDT Pt Aox4. Pt reports abdominal pain 11/05. Morphine was administered with no change in pain. Physician ordered Dilaudid pt, has relief of pain. No skin breakdown. Placed pt on fall precautions d/t to pain. Pt is resting with belongings and call light in reach. documented in this encounter Plan of Treatment Upcoming Encounters Date Type Department Care Team (Late st Contact Info) Description 09/14/2024 3:00 PM CDT Office Visit [facility] - [facility] [id number] [place] [address] Marlys Mayer MD [address] [place] [address] documented as of this encounter Procedures Procedure Name Priority Date/Time Associated Diagnosis Comments POC GLUCOSE Routine 07/12/2020 2:38 PM CDT POC GLUCOSE Routine 07/12/2020 9:04 AM CDT CBC WITH DIFFERENTIAL Routine 07/12/2020 5:00 AM CDT TRIGLYCERIDE Routine 07/12/2020 5:00 AM CDT HEMOGLOBIN A1C Routine 07/12/2020 5:00 AM CDT POC GLUCOSE Routine 07/11/2020 10:20 PM CDT POC GLUCOSE Routine 07/11/2020 5:03 PM CDT POC GLUCOSE Routine 07/11/2020 12:47 PM CDT POC GLUCOSE Routine 07/11/2020 10:[address] ABDOMEN PELVIS W CONTRAST Stat 07/10/2020 10:37 PM CDT URINALYSIS W/REFLEX MICROSCOPIC Stat 07/10/2020 8:29 PM CDT EKG 12-LEAD Stat 07/10/2020 8:19 PM CDT CBC WITH DIFFERENTIAL Stat 07/10/2020 8:08 PM CDT PROTIME-INR Stat 07/10/2020 8:08 PM CDT C-REACTIVE PROTEIN Stat 07/10/2020 8: 08 PM CDT TRIGLYCERIDE Stat 07/10/2020 8:08 PM CDT LIPASE Stat 07/10/2020 8:08 PM CDT ETHANOL LEVEL Stat 07/10/2020 8:08 PM CDT COMPREHENSIVE METABOLIC PANEL Stat 07/10/2020 8:08 PM CDT PULSE OXIMETRY, CONTINUOUS Stat 07/10/2020 7:55 PM CDT documented in this encounter Results * (ABNORMAL) POC GLUCOSE (07/12/2020 2:38 PM CDT) GLUCOSE POC 110(H) 74 - 99 mg/dL 07/12/2020 2:38 PM CDT [facility] COMMENT, GLU POC Notified RN/ 07/12/2020 2:38 PM CDT [facility] CRIMPER OPERATOR NAME POC SONAL BLAKE 07/12/2020 2:38 PM CDT [facility] Blood, whole 07/12/2020 2:38 PM CDT 07/12/2020 2:48 PM CDT Puja Pagan MD POINT OF CARE TESTIN Maggie Performing Organization Address City/[facility]/ZIP Co de Phone Number [facility] CLIA# [id number] [address] [place] [address] * POC GLUCOSE (07/12/2020 9:04 AM CDT) GLUCOSE POC 84 74 - 99 mg/dL 07/12/2020 9:04 AM CDT [facility] COMMENT, GLU POC Notified RN/ 07/12/2020 9:04 AM CDT [facility] CRIMPER OPERATOR NAME POC HETAL HERNANDEZ 07/12/2020 9:04 AM CDT [facility] Blood, whole 07/12/2020 9:04 AM CDT 07/12/2020 9:11 AM CDT Puja Pagan MD POINT OF CARE TESTIN Maggie [facility] CLIA# [id number] [address] [address] * (ABNORMAL) HEMOGLOBIN A1C (07/12/2020 5:00 AM CDT) HEMOGLOBIN A1C 9.2(H) <5.7 % 07/12/2020 8:24 AM CDT [facility] EST. AVG GLUCOSE, A1C 217 mg/dL 07/12/2020 8:24 AM CDT [facility] Blood Venipuncture / Unknown 07/12/2020 5:00 AM CDT 07/12/2020 7:03 AM CDT Narrative [facility] - 07/12/2020 8:24 AM CDT HGB A1C INTERPRETATION NORMAL: ? <5.7% PRE-DIABETES: 5.7 - 6.4% DIABETES: ? 6.5% OR GREATER Leonel Valadez DO CHEMISTRY ORDERABLES [facility]# [id number] [address] [place] [address] * (ABNORMAL) CBC WITH DIFFERENTIAL (07/12/2020 5:00 AM CDT) Pathologist [facility] WBC 6.1 4.0 - 9.8 K/uL 07/12/2020 7:11 AM CDT [facility] RBC 4.11 3.90 - 4.90 M/uL 07/12/2020 7:11 AM T [facility] HEMOGLOBIN 11.8 11.8 - 14.8 g/dL 07/12/2020 7:11 AM CDT [facility] HEMATOCRIT 37.8 35.5 - 44.0 % 07/12/2020 7:11 AM CDT [facility] MCV 92.0 82.0 - 99.0 fL 07/12/2020 7:11 AM CDT [facility] MCH 28.7 27.2 - 32.6 pg 07/12/2020 7:11 AM CDT [facility] MCHC 31.2(L) 31.5 - 35.5 g/dL 07/12/2020 7:11 AM CDT [facility] RDW 13.8 11.5 - 14.5 % 07/12/2020 7:11 AM CDT [facility] RDW-STDEV 47.0 37.1 - 48.7 fL 07/12/2020 7:11 AM CDT [facility] PLATELETS 209 140 - 350 K/uL 07/12/2020 7:11 AM CDT [facility] MPV 9.7 9.3 - 12.4 fL 07/12/2020 7:11 AM CDT [facility] NEUTROPHILS 46 % 07/12/2020 7:11 AM CDT [facility] LYMPHOCYTES 46 % 07/12/2020 7:11 AM CDT [facility] MONOCYTES 6 % 07/12/2020 7:11 AM CDT [facility] EOSINOPHILS 1 % 07/12/2020 7:11 AM [employer]T [facility] BASOPHILS 1 % 07/12/2020 7:11 AM [employer] IMMATURE GRANULOCYTES 1 % 07/12/2020 7:11 AM [employer] Comment:IG (Immature Granulo cyte) count includes Metamyelocytes, Myelocytes, and Promyelocytes NEUTROPHIL ABSOLUTE 2.81 1.90 - 7.00 K/uL 07/12/2020 7:11 AM [employer] LYMPHOCYTE ABSOLUTE 2.79 0.70 - 4.50 K/uL 07/12/2020 7:11 AM [employer] MONOCYTE ABSOLUTE 0.36 0.10 - 1.30 K/uL 07/12/2020 7:11 AM CDT [facility] EOSINOPHIL ABSOLUTE 0.08 0.00 - 0.70 K/uL 07/12/2020 7:11 AM CDT [facility] BASOPHILS ABSOLUTE 0.03 0.00 - 0.20 K/uL 07/12/2020 7:11 AM CDT [facility] IMMATURE GRANULOCYTES ABSOLUTE 0.03 0.00 - 0.03 K/uL 07/12/2020 7:11 AM [facility] - [facility] Blood Venipuncture / Unknown 07/12/2020 5:00 AM CDT 07/12/2020 7:03 AM CDT Leonel Valadez DO HEMATOLOGY ORDERABLE S Performing Organization Address [facility]/ZIP Co de Phone Number [facility]# [id number] [address] [place] [address] * (ABNORMAL) TRIGLYCERIDE (07/12/2020 5:00 AM CDT) TRIGLYCERIDE 518(H) <150 mg/dL 07/12/2020 7:50 AM CDT [facility] Blood Venipuncture / Unknown 07/12/2020 5:00 AM CDT 07/12/2020 7:02 AM CDT Narrative [facility] LABORATORY [facility] - 07/12/2020 7:50 AM CDT TRIGLYCERIDES ? mg/dL Normal ?< 150 Borderline High ?150 - 199 High ? 200 - 499 Very High ? >= 500 Based on AHA/NCEP Guidelines. Leonel Valadez DO CHEMISTRY ORDERABLES Performing Organization Address [facility] Co de Phone Number [facility] [employer] [facility]# [id number] [address] [place] [address] * (ABNORMAL) POC GLUCOSE (07/11/2020 10:20 PM CDT) GLUCOSE POC 135(H) 74 - 99 mg/dL 07/11/2020 10:20 PM CDT [facility] LABORATORY [facility] CRIMPER OPERATOR NAME POC ROSANNE TOTH 07/11/2020 10:20 PM CDT [facility] LABORATORY [facility] Blood, whole 07/11/2020 10:2 0 PM CDT 07/11/2020 10:29 PM CDT Leonel Valadez DO POINT OF CARE FLY Serrano [facility] LABORATORY [facility] CLIA# [id number] [address] [place] [address] * (ABNORMAL) POC GLUCOSE (07/11/2020 5:03 PM CDT) GLUCOSE POC 109(H) 74 - 99 mg/dL 07/11/2020 5:03 PM CDT [facility] LABORATORY [facility] CRIMPER OPERATOR NAME POC UYEN HILL 07/11/2020 5:03 PM CDT [facility] LABORATORY SERVICES [facility] Blood, whole 07/11/2020 5:03 PM CDT 07/11/2020 5:16 PM CDT Leonel Valadez DO POINT OF CARE TESTJERONIMO Serrano Performing Organization Address [facility]/ZIP Co de Phone Number [facility] CLIA# [id number] [address] [place] [address] * (ABNORMAL) POC GLUCOSE (07/11/2020 12:47 PM CDT) GLUCOSE POC 238(H) 74 - 99 mg/dL 07/11/2020 12:47 PM CDT [facility] LABORATORY SERVICES [facility] CRIMPER OPERATOR NAME POC ANURADHA POLANCO 07/11/2020 12:47 PM CDT [facility] LABORATORY SERVICES [facility] Blood, whole 07/11/2020 12:4 7 PM CDT 07/11/2020 12:55 PM CDT Leonel Valadez DO POINT OF CARE FLY Serrano Performing Organization Address City/[facility]/ZIP Co de Phone Number [facility] LABORATORY [facility] CLIA# [id number] [address] [place] [address] * (ABNORMAL) POC GLUCOSE (07/11/2020 10:28 AM CDT) GLUCOSE POC 153(H) 74 - 99 mg/dL 07/11/2020 10:28 AM CDT [facility] LABORATORY [facility] CRIMPER OPERATOR NAME POC UYEN HILL 07/11/2020 10:28 AM CDT [facility]ORATORY [facility] Blood, whole 07/11/2020 10:2 8 AM CDT 07/11/2020 10:35 AM CDT Leonel Valadez DO POINT OF CARE TESTIN G [facility] CLIA# [id number] [address] [place] [address] * CT ABDOMEN PELVIS W CONTRAST (07/10/2020 10:37 PM CDT) Anatomical Region Laterality Modality Abdomen Computed Tomogra phy 07/10/2020 10:3 8 PM CDT Impressions 07/10/2020 10:52 PM CDT IMPRESSION: 1. No acute abnormality in the abdomen or pelvis. 2. Resolution of peripancreatic inflammatory changes. Resolution of low-density focus in the pancreatic tail. DICTATION LOCATION: Location 1 - [facility] Narrative 07/10/2020 10:52 PM CDT EXAM: ??CT ABDOMEN AND PELVIS WITH IV CONTRAST DATE: 07/10/2020 10:37 PM HISTORY: ??Acute abdominal pain. History of pancreatitis. TECHNIQUE: CT abdomen and pelvis was performed following intravenous administration of 120 mL's of Isovue-300 contrast material. ??Oral contrast was not administered. The examination was performed with the adjustment of mA according to the patient size and/or the use of Iterative 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 COMPARISONS: 02/26/2020. FINDINGS: Lung bases: Unremarkable. Liver: Steatosis. No focal lesions. Gallbladder/biliary: Unremarkable. Spleen: Unremarkable. Adrenal glands: Unremarkable. Pancreas: Normal. Resolution of previously demonstrated peripancreatic fat stranding. Resolution of low-density focus in the pancreatic tail. Kidneys: Unremarkable right kidney. 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 Bladder: Unremarkable. Reproductive: Prior hysterectomy. 3.3 cm left ovarian cyst. Bowel: Stomach is distended with fluid and gas. Duodenum is unremarkable. There are a few loops of small bowel that are distended with fluid, nonspecific. The terminal ileum appears normal. No evidence of acute appendicitis. No acute colonic inflammation. Vascular/aorta: Moderate atherosclerotic plaque affects the abdominal aorta. Lymph nodes: No adenopathy. Peritoneum: No pneumoperitoneum. Trace free fluid in the posterior pelvis. Abdominal wall: Unremarkable. Osseous structures: Unremarkable. INCIDENTAL FINDINGS: ??None. Procedure Note Afshin Cramer MD - 07/10/2020 EXAM: CT ABDOMEN AND PELVIS WITH IV CONTRAST DATE: 07/10/2020 10:37 PM HISTORY: Acute abdominal pain. History of pancreatitis. TECHNIQUE: CT abdomen and pelvis was performed following intravenous administration of 120 mL's of Isovue-300 contrast material. Oral contrast was not administered. The examination was performed with the adjustment of mA according to the patient size and/or the use of Iterative 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 COMPARISONS: 02/26/2020. FINDINGS: Lung bases: Unremarkable. Liver: Steatosis. No focal lesions. Gallbladder/biliary: Unremarkable. Spleen: Unremarkable. Adrenal glands: Unremarkable. Pancreas: Normal. Resolution of previously demonstrated peripancreatic fat stranding. Resolution of low-density focus in the pancreatic tail. Kidneys: Unremarkable right kidney. 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 Bladder: Unremarkable. Reproductive: Prior hysterectomy. 3.3 cm left ovarian cyst. Bowel: Stomach is distended with fluid and gas. Duodenum is unremarkable. There are a few loops of small bowel that are distended with fluid, nonspecific. The terminal ileum appears normal. No evidence of acute appendicitis. No acute colonic inflammation. Vascular/aorta: Moderate atherosclerotic plaque affects the abdominal aorta. Lymph nodes: No adenopathy. Peritoneum: No pneumoperitoneum. Trace free fluid in the posterior pelvis. Abdominal wall: Unremarkable. Osseous structures: Unremarkable. INCIDENTAL FINDINGS: None. IMPRESSION: 1. No acute abnormality in the abdomen or pelvis. 2. Resolution of peripancreatic inflammatory changes. Resolution of low-density focus in the pancreatic tail. DICTATION LOCATION: Location - [facility] Eliel Duran MD CT ORDERABLES * (ABNORMAL) URINALYSIS WITH REFLEX MICROSCOPIC (07/10/2020 8:29 PM CDT) COLOR UA Pale Yellow Pale to Dark Yellow 07/10/2020 9:09 PM CDT [employer] LABORATORY SERVICES - . [facility] CLARITY UA Clear Clear 07/10/2020 9:09 PM CDT [facility] LABORATORY SERVICES - . [facility] SPECIFIC GRAVITY UA 1.027 1.003 - 1.035 07/10/2020 9:09 PM CDT [facility] LABORATORY SERVICES - [facility] PH UA 7.0 5.0 - 8.0 07/10/2020 9:09 PM CDT [employer] LABORATORY SERVICES - [facility] LEUKOCYTE ESTERASE UA Negative Negative 07/10/2020 9:09 PM CDT [facility] LABORATORY SERVICES - . [facility] NITRITE UA Negative Negative 07/10/2020 9:09 PM CDT [facility] LABORATORY SERVICES - [facility] PROTEIN UA Negative Negative 07/10/2020 9:09 PM CDT [facility] LABORATORY SERVICES - [facility] GLUCOSE UA 3+(A) Negative 07/10/2020 9:09 PM CDT [facility] LABORATORY SERVICES - [facility] KETONES UA Negative Negative 07/10/2020 9:09 PM CDT [facility] LABORATORY SERVICES - [facility] UROBILINOGEN UA Normal <2.0 mg/dL 9:09 PM CDT [facility] LABORATORY SERVICES - [facility] BILIRUBIN UA Negative Negative 07/10/2020 9:09 PM CDT [facility] LABORATORY SERVICES - [facility] BLOOD UA Negative Negative 07/10/2020 9:09 PM CDT [facility] LABORATORY SERVICES - [facility] Urine URINE SPECIMEN OBTAINED BY CLEAN CATCH PROCEDURE / Unknown Collection / Unknown 07/10/2020 8:29 PM CDT 07/10/2020 8:48 PM CDT Eliel Duran MD URINE ORDERABLES [facility] LABORATORY SERVICES - [facility] CLIA# [id number] [facility] [place] [address] * EKG 12-LEAD (07/10/2020 8:19 PM CDT) 07/10/2020 8:19 PM CDT Narrative INTERFACE SYSTEM - 07/11/2020 7:55 AM CDT ? Stationary ECG Study ? [facility] ? Test Date: ?07/10/2020 8:19 PM Pat Name: ? LINDA DOSS ?Department: ?? 42 ?Room: ? 5302 Gender: ? 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 [email or web address] : ?1975 ? Requested By: ELIEL DURAN Order Number: [id number] ?Reading MD: ?? Malcom Blackburn ? Measurements Intervals ?[place] ? Rate: ? 98 ? P: ?49 UT: ? 149 ?QRS: ?52 QRSD: ? 87 ? T: ?-19 QT: ? 353 ? QTc: ?451 ? Interpretive Statements ? Sinus rhythm Probable left atrial enlargement Borderline T abnormalities, inferior leads Electronically Signed On 07-11-2020 7:55:27 CDT by Malcom Blackburn Procedure Note Malcom Blackburn MD - 07/11/2020 Stationary ECG Study [facility] Test Date: 07/10/2020 8:19 PM Pat Name: LINDA DOSS Department: 42 Room: 5302 Gender: F Building Maintenance Engineer: siva : 1975 Requested By: ELIEL DURAN Order Number: [id number] Reading MD: Malcom Blackburn Measurements Intervals [place] Rate: 98 P: 49 UT: 149 QRS: 52 QRSD: 87 T: -19 QT: 353 QTc: 451 Interpretive Statements Sinus rhythm Probable left atrial enlargement Borderline T abnormalities, inferior leads Electronically Signed On 07-11-2020 7:55:27 CDT by Malcom Blackburn Eliel Duran MD ECG ORDERABLES INTERFACE SYSTEM Refer to clinic/hospital department * (ABNORMAL) TRIGLYCERIDE (07/10/2020 8:08 PM CDT) TRIGLYCERIDE 2,094(H) <150 mg/dL 07/11/2020 3:50 AM CDT [facility] [employer] [facility] Blood Venipuncture / Unknown 07/10/2020 8:08 PM CDT 07/10/2020 8:15 PM CDT [facility] [employer] [facility] - 07/11/2020 3:50 AM CDT TRIGLYCERIDES ? mg/dL Normal ?< 150 Borderline High ?150 - 199 High ? 200 - 499 Very High ? >= 500 Based on AHA/NCEP Guidelines. Loki Vences MD CHEMISTRY ORDERABLES Performing Organization Address [facility] Co de Phone Number [facility] [employer] [facility]# [id number] [address] [place] [address] * (ABNORMAL) PROTIME-INR (07/10/2020 8:08 PM CDT) PROTIME 11.6(L) 12.7 - 15.1 Seconds 07/10/2020 8:41 PM CDT [facility] [employer] [facility] Comment:Verified by repeat a nalysis. INR 0.8(L) 0.9 - 1.1 07/10/2020 8:41 PM CDT [facility] [employer] [facility] Blood Venipuncture / Unknown 07/10/2020 8:08 PM CDT 07/10/2020 8:15 PM CDT Narrative [facility] - 07/10/2020 8:41 PM CDT INR Therapeutic Range: Adult: ?? 2.0 - 3.0 for pulmonary embolism or prophylaxis against venous ?thrombosis or systemic embolization. 2.0 - 3.0 for patients with tissue heart valves. 2.5 - 3.5 for patients with mechanical heart valves or post RI. Pediatric ??(12 years and under): 1.5 - 3.0 Although the target range in children is not well established, ?INR values of 1.5 - 3.0 are recommended for most patients. ?Higher values have been used in children with prosthetic ?cardiac valves and hereditary clotting disorders. (<3 days) therapeutic ranges have not been established. INR Therapeutic Range: Adult: ?? 2.0 - 3.0 for pulmonary embolism or prophylaxis against venous ?thrombosis or systemic embolization. 2.0 - 3.0 for patients with tissue heart valves. 2.5 - 3.5 for patients with mechanical heart valves or post RI. Pediatric ??(12 years and under): 1.5 - 3.0 Although the target range in children is not well established, ?INR values of 1.5 - 3.0 are recommended for most patients. ?Higher values have been used in children with prosthetic ?cardiac valves and hereditary clotting disorders. (<3 days) therapeutic ranges have not been established. Eliel Duran MD HEMATOLOGY ORDERABLE S [facility] CLIA# [id number] [address] [place] [address] * ETHANOL LEVEL (07/10/2020 8:08 PM CDT) ETHANOL <10.00 <10.00 mg/dL 07/10/2020 8:44 PM CDT [facility] ETHANOL % <0.01 %w/v 07/10/2020 8:44 PM CDT [facility] LABORATORY [facility] Blood Venipuncture / Unknown 07/10/2020 8:08 PM CDT 07/10/2020 8:15 PM CDT Eliel Duran MD CHEMISTRY ORDERABLES [facility] CLIA# [id number] [address], [place] [address] * LIPASE (07/10/2020 8:08 PM CDT) LIPASE 48 13 - 60 U/L 07/10/2020 8:44 PM CDT [facility] LABORATORY [facility] Blood Venipuncture / Unknown 07/10/2020 8:08 PM CDT 07/10/2020 8:15 PM CDT Eliel Duran MD CHEMISTRY ORDERABLES [facility] CLIA# [id number] [address], [place] [address] * C-REACTIVE PROTEIN (07/10/2020 8:08 PM CDT) CRP <3.0 <5.0 mg/L 07/10/2020 8:44 PM CDT [facility] LABORATORY [facility] Blood Venipuncture / Unknown 07/10/2020 8:08 PM CDT 07/10/2020 8:15 PM CDT Eliel Duran MD CHEMISTRY ORDERABLES [facility] CLIA# [id number] [address] [place] [address] * (ABNORMAL) COMPREHENSIVE METABOLIC PANEL (07/10/2020 8:08 PM CDT) [facility] SODIUM 136 136 - 145 mmol/L 07/10/2020 9:30 PM T [employer] LABORATORY SERVICES - [facility] POTASSIUM 4.4 3.5 - 5.0 mmol/L 07/10/2020 9:30 PM T [employer] LABORATORY SERVICES - [facility] Comment:Slightly hemolyzed. Result may be falsely elevated. CHLORIDE 95(L) 98 - 107 mmol/L 07/10/2020 9:30 PM T [employer] LABORATORY SERVICES - [facility] CO2 25 22 - 29 mmol/L 07/10/2020 9:30 PM T [employer] LABORATORY SERVICES - [facility] CALCIUM 10.0 8.6 - 10.2 mg/dL 07/10/2020 9:30 PM T [facility] LABORATORY SERVICES - [facility] BUN 14 6 - 20 mg/dL 07/10/2020 9:30 PM T [employer] LABORATORY SERVICES [facility] CREATININE 0.70 0.51 - 0.95 mg/dL 07/10/2020 9:30 PM T [employer] LABORATORY SERVICES [facility] GLUCOSE 212(H) 74 - 99 mg/dL 07/10/2020 9:30 PM T [employer] LABORATORY SERVICES [facility] TOTAL PROTEIN 7.3 6.7 - 8.6 g/dL 07/10/2020 9:30 PM T [facility] LABORATORY SERVICES - . [facility] ALBUMIN 4.5 3.5 - 5.2 g/dL 07/10/2020 9:30 PM T [employer] LABORATORY SERVICES [facility] BILIRUBIN TOTAL 0.2(L) 0.3 - 1.2 mg/dL 07/10/2020 9:30 PM T [employer] LABORATORY SERVICES [facility] ALKALINE PHOSPHATASE 77 35 - 104 U/L 07/10/2020 9:30 PM T [employer] LABORATORY SERVICES [facility] AST 20 <33 U/L 07/10/2020 9:30 PM T [facility] LABORATORY SERVICES - [facility] Comment: Hemolysis present. ??Result may be falsely elevated Cleared of chylomicrons. ALT 17 <34 U/L 07/10/2020 9:30 PM CDT [facility] LABORATORY SERVICES - [facility] Comment:Cleared of chylomicr ons. GFR >60 >=60 mL/min/1.7 3 sq meter 07/10/2020 9:30 PM CDT [facility] LABORATORY [facility] - [facility] Comment: eGFR has not been validated for [...] GFR, >60 >=60 mL/min/1.7 3 sq meter 07/10/2020 9:30 PM CDT [facility] LABORATORY [facility] - [facility] ANION GAP 16 8 - 16 mmol/L 07/10/2020 9:30 PM CDT [facility] LABORATORY [facility] Blood Venipuncture / Unknown 07/10/2020 8:08 PM CDT 07/10/2020 8:15 PM CDT Narrative [facility] LABORATORY [facility] - [facility] - 07/10/2020 9:30 PM CDT Samples containing indocyanine green cause interferences on Total and/or Direct Bilirubin and must not be measured. Eliel Duran MD CHEMISTRY ORDERABLES [facility] [employer] [facility]# [id number] [address] [facility] [place] [address] * (ABNORMAL) CBC WITH DIFFERENTIAL (07/10/2020 8:08 PM CDT) WBC 10.4(H) 4.0 - 9.8 K/uL 07/10/2020 8:20 PM CDT [facility] LABORATORY [facility] RBC 5.00(H) 3.90 - 4.90 M/uL 07/10/2020 8:20 PM CDT [facility] LABORATORY [facility] HEMOGLOBIN 15.4(H) 11.8 - 14.8 g/dL 07/10/2020 8:20 PM CDT [facility] [employer] LABORATORY SERVICES - [facility] HEMATOCRIT 44.3(H) 35.5 - 44.0 % 07/10/2020 8:20 PM CDT [facility] [employer] LAB[facility]ATORY SERVICES - [facility] MCV 88.6 82.0 - 99.0 fL 07/10/2020 8:20 PM CDT [employer] [employer] SERVICES - [facility] MCH 30.8 27.2 - 32.6 pg 07/10/2020 8:20 PM CDT [facility] SERVICES - [facility] MCHC 34.8 31.5 - 35.5 g/dL 07/10/2020 8:20 PM CDT [facility] [employer] SERVICES [facility] RDW 13.2 11.5 - 14.5 % 07/10/2020 8:20 PM CDT [facility] SERVICES - [facility] RDW-STDEV 43.1 37.1 - 48.7 fL 07/10/2020 8:20 PM CDT [facility] SERVICES - [facility] PLATELETS 287 140 - 350 K/uL 07/10/2020 8:20 PM CDT [facility]ORY SERVICES - [facility] MPV 9.5 9.3 - 12.4 fL 07/10/2020 8:20 PM CDT [facility] SERVICES - [facility] NEUTROPHILS 65 % 07/10/2020 8:20 PM CDT [facility] - [facility] LYMPHOCYTES 28 % 07/10/2020 8:20 PM CDT [facility] MONOCYTES 5 % 07/10/2020 8:20 PM CDT [employer] - [facility] EOSINOPHILS 1 % 07/10/2020 8:20 PM CDT [facility] - [facility] BASOPHILS 0 % 07/10/2020 8:20 PM CDT [facility] IMMATURE GRANULOCYTES 1 % 07/10/2020 8:20 PM CDT [facility] - [facility] Comment:IG (Immature Granulo cyte) count includes Metamyelocytes, Myelocytes, and Promyelocytes NEUTROPHIL ABSOLUTE 6.79 1.90 - 7.00 K/uL 07/10/2020 8:20 PM CDT [facility] - [facility] LYMPHOCYTE ABSOLUTE 2.94 0.70 - 4.50 K/uL 07/10/2020 8:20 PM CDT [facility] - [facility] [place] MONOCYTE ABSOLUTE 0.48 0.10 - 1.30 K/uL 07/10/2020 8:20 PM CDT [facility] LABORATORY SERVICES [facility] EOSINOPHIL ABSOLUTE 0.11 0.00 - 0.70 K/uL 07/10/2020 8:20 PM CDT [facility] LAB[facility]ATORY SERVICES [facility] BASOPHILS ABSOLUTE 0.03 0.00 - 0.20 K/uL 07/10/2020 8:20 PM CDT [facility] LAB[facility]ATORY SERVICES - [facility] IMMATURE GRANULOCYTES ABSOLUTE 0.05(H) 0.00 - 0.03 K/uL 07/10/2020 8:20 PM CDT [facility] LABORATORY [facility] - . [facility] Blood Venipuncture / Unknown 07/10/2020 8:08 PM CDT 07/10/2020 8:15 PM CDT Eliel Duran MD HEMATOLOGY ORDERABLE S Performing Organization Address City/State/[facility] Co de Phone Number [facility] LABORATORY [facility]# [id number] [address] [place] [address] documented in this encounter Visit Diagnoses Diagnosis Recurrent pancreatitis- Primary Chronic pancreatitis Abdominal pain, unspecified abdominal location Mixed hyperlipidemia Chronic pancreatitis, unspecified pancreatitis type Chylomicronemia syndrome Hyperchylomicronemia Tobacco use Tobacco use disorder Type 2 diabetes mellitus without complication, with long-term current use of insulin Moderate protein-calorie malnutrition Malnutrition of moderate degree History of plasmapheresis History of pancreatitis Personal history of other diseases of digestive system Recurrent pancreatitis Chronic pancreatitis Metabolic syndrome Dysmetabolic Syndrome X Hypothyroidism Unspecified hypothyroidism Hypertriglyceridemia Pure hyperglyceridemia PCOS (polycystic ovarian syndrome) Polycystic ovaries Type 2 diabetes mellitus without complication, with long-term current use of insulin documented in this encounter Administered Medications Inactive Administered Medications - up to 3 most recent administrations Medication Order MAR Action Action Date Dose Rate Site atorvastatin (LIPITOR) tablet 80 mg 80 mg, Oral, DAILY AT BEDTIME, First dose on 07/11/20 at 2100, Until Discontinued, Routine Given 07/11/2020 8:45 PM CDT 80 mg calcium GLUCONATE 2,000 mg in sodium chloride (iso-osmotic) 100 mL IVPB 2,000 mg, IV, INTRA-PROCEDURE ONCE, 1 dose, Starting on Sat07/11/20 at 1003, Until Sat07/11/20 at 1441, Stat New Bag 07/11/2020 1:41 PM CDT 2,000 mg 100 mL/hr citalopram (CeleXA) tablet 40 mg 40 mg, Oral, DAILY AT BEDTIME, First dose on Sat07/11/20 at 2100, Until Discontinued, Routine, Previous Med: citalopram (CeleXA) 40 mg tablet - Orig Sig - Take 40 mg by mouth daily at bedtime. Given 07/11/2020 8:45 PM CDT 40 mg dextrose 5% - sodium chloride 0.9% infusion IV, at 40 mL/hr, SEE ADMIN INSTRUCTIONS, Starting on Sat07/11/20 at 0907, Until Sat07/12/20 at 1813, Routine dextrose 50% (D50) syringe 12.5 Gram 12.5 Gram, IV, SEE ADMIN INSTRUCTIONS, Starting on Sat07/11/20 at 0907, Until Sat07/12/20 at 1813, Routine dextrose 50% (D50) syringe 25 Gram 25 Gram, IV, SEE ADMIN INSTRUCTIONS, Starting on Sat07/11/20 at 0907, Until Sat07/12/20 at 1813, Routine diphenhydrAMINE (BENADRYL) tablet 25 mg 25 mg, Oral, ONE TIME ONLY, 1 dose, On Sat07/11/20 at 2130, Routine Given 07/11/2020 10:17 PM CDT 25 mg diphenhydrAMINE (BENADRYL) tablet 25 mg 25 mg, Oral, EVERY 8 HOURS PRN, Starting on Sat07/12/20 at 0900, Until Sat07/12/20 at 1813, Itching, Routine Given 07/12/2020 10:12 AM CDT 25 mg enoxaparin (LOVENOX) injection 40 mg 40 mg, subCUT, EVERY 24 HOURS, First dose on Sat07/11/20 at 1800, Until Discontinued, Routine, Indication: Prophylaxis of VTE, Dose to be adjusted per facility protocol? Yes Given 07/11/2020 5:59 PM CDT 40 mg Abdominal Tissue famotidine PF (PEPCID) 20 mg/2 mL injection 20 mg 20 mg, IV, ONE TIME ONLY, 1 dose, On Sat07/10/20 at 2015, Routine Given 07/10/2020 8:15 PM CDT 20 mg fenofibrate (LOFIBRA) tablet 160 mg 160 mg, Oral, DAILY, First dose on Sat07/11/20 at 1300, Until Discontinued, Routine, Previous Med: fenofibrate (LOFIBRA) 160 mg Tablet - Orig Sig - TAKE 1 TABLET BY MOUTH EVERY DAY Patient taking differently: Take 160 mg by mouth daily. Given 07/12/2020 8:31 AM CDT 160 mg Given 07/11/2020 3:04 PM CDT 160 mg fentaNYL PF (SUBLIMAZE) 50 mcg/mL injection 50 mcg 50 mcg, IV, ONE TIME ONLY, 1 dose, On Sat07/10/20 at 2200, Routine Given 07/10/2020 9:53 PM CDT 50 mcg Fish Oil-Manlius-3 Fatty Acids 360-1,200 mg capsule 1 Capsule 1 Capsule, Oral, TWO TIMES DAILY WITH MEALS, First dose on Sat07/11/20 at 1700, Until Discontinued, Routine Given 07/11/2020 5:01 PM CDT 1 Capsule glucagon HCL 1 mg/mL injection 1 mg 1 mg, IM, SEE ADMIN INSTRUCTIONS, Starting on Sat07/11/20 at 0907, Until Sat07/12/20 at 1813, Routine heparin, porcine (pf) 10 unit/mL IV syringe 20 Units 20 Units, IV, POST-PROCEDURE ONCE, 1 dose, Starting on Sat07/11/20 at 1007, Until Sat07/11/20 at 1437, Stat, Please tube to [phone]. Thank you! Given 07/11/2020 2:37 PM CDT 20 Units heparin, porcine lock flush (pf) 100 unit/mL injection 500 Units 500 Units, IV, POST-PROCEDURE ONCE, 1 dose, Starting on Sat07/11/20 at 1007, Until Sat07/11/20 at 1438, Stat, Please tube to 516. Thank you! Given 07/11/2020 2:38 PM CDT 500 Units heparin, porcine lock flush (pf) 100 unit/mL injection 500 Units 500 Units, IV, POST-PROCEDURE ONCE, 1 dose, Starting on Sat07/11/20 at 1006, Until Sat07/11/20 at 1437, Stat, Please tube to 516. Thank you! Given 07/11/2020 2:37 PM CDT 500 Units HYDROmorphone (DILAUDID) 2 mg/mL injection 0.5 mg 0.5 mg, IV, EVERY 3 HOURS PRN, 2 doses, Starting on Sat07/11/20 at 0418, Until Sat07/11/20 at 0722, Pain (See admin instructions), Pain, Severe, Routine Given 07/11/2020 7:22 AM CDT 0.5 mg Given 07/11/2020 4:23 AM CDT 0.5 mg HYDROmorphone (DILAUDID) 2 mg/mL injection 0.5 mg 0.5 mg, IV, EVERY 3 HOURS PRN, Starting on Sat07/11/20 at 0904, Until Sat07/12/20 at 0800, Pain (See admin instructions), Routine Given 07/12/2020 3:12 AM CDT 0.5 mg Given 07/11/2020 10:29 PM CDT 0.5 mg Given 07/11/2020 6:03 PM CDT 0.5 mg hydrOXYzine HCL (ATARAX) tablet 25 mg 25 mg, Oral, EVERY 6 HOURS PRN, Starting on Sat07/11/20 at 1515, Until Sat07/12/20 at 1813, Itching, Routine Given 07/12/2020 8:30 AM CDT 25 mg Given 07/11/2020 4:57 PM CDT 25 mg ibuprofen (MOTRIN) tablet 400 mg 400 mg, Oral, EVERY 6 HOURS PRN, Starting on Sat07/12/20 at 1040, Until Sat07/12/20 at 1813, Pain, Mild, Routine Given 07/12/2020 11:41 AM CDT 400 mg insulin glargine (LANTUS) injection 16 Units 16 Units, subCUT, TWO TIMES DAILY, First dose on Sat07/11/20 at 1030, Until Discontinued, Routine Given 07/11/2020 10:27 PM CDT 16 Units Arm, Right Upper Given 07/11/2020 10:31 AM CDT 16 Units A rm, Right Upper insulin lispro (HumaLOG) injection 0-4 Units 0-4 Units, subCUT, DAILY AT BEDTIME, First dose on Sat07/11/20 at 2100, Until Discontinued, Routine insulin lispro (HumaLOG) injection 0-7 Units 0-7 Units, subCUT, THREE TIMES DAILY WITH MEALS, First dose on Sat07/11/20 at 1200, Until Discontinued, Routine Given 07/11/2020 12:55 PM CDT 3 Units Abdomen, Left Lower Quadrant iopamidoL (ISOVUE-300) 61 % injection (drawn from multi-use bulk pack) 120 mL 120 mL, IV, INTRA-PROCEDURE ONCE, 1 dose, Starting on Sat07/10/20 at 2237, Until Sat07/10/20 at 2237, Routine Contrast Given 07/10/2020 10:37 PM CDT 120 mL levothyroxine (SYNTHROID) tablet 200 mcg 200 mcg, Oral, DAILY EARLY, First dose on Sat07/11/20 at 1030, Until Discontinued, Routine, Previous Med: levothyroxine 200 mcg tablet - Orig Sig - Take 1 Tablet (200 mcg) by mouth daily. Take along with 50 mcg tab =250 mcg total daily Dose change Given 07/12/2020 7:08 AM CDT 200 mcg Given 07/11/2020 10:30 AM CDT 200 mcg levothyroxine (SYNTHROID) tablet 50 mcg 50 mcg, Oral, DAILY EARLY, First dose on Sat07/11/20 at 1030, Until Discontinued, Routine, Previous Med: levothyroxine 50 mcg tablet - Orig Sig - Take 1 Tablet (50 mcg) by mouth daily in the morning. Take along with 200 mcg tab =250 mcg daily Given 07/12/2020 7:06 AM CDT 50 mcg Given 07/11/2020 10:29 AM CDT 50 mcg LORazepam (ATIVAN) tablet 1 mg 1 mg, Oral, THREE TIMES DAILY PRN, Starting on Sat07/11/20 at 0912, Until Sat07/12/20 at 1813, Anxiety, Routine, Previous Med: LORazepam (ATIVAN) 1 mg tablet - Orig Sig - Take 1 Tablet (1 mg) by mouth 2 times daily as needed for Anxiety. Given 07/12/2020 9:27 AM CDT 1 mg Given 07/11/2020 8:50 PM CDT 1 mg Given 07/11/2020 9:33 AM CDT 1 mg morphine 4 mg/mL injection 2 mg 2 mg, IV, ONE TIME ONLY, 1 dose, On Sat07/11/20 at 0130, Routine Given 07/11/2020 1:26 AM CDT 2 mg morphine 4 mg/mL injection 2 mg 2 mg, IV, EVERY 3 HOURS PRN, 2 doses, Starting on Sat07/11/20 at 0238, Until Sat07/11/20 at 0418, Pain (See admin instructions), Pain, Severe, Routine Given 07/11/2020 3:06 AM CDT 2 mg morphine 4 mg/mL injection 4 mg 4 mg, IV, ONE TIME ONLY, 1 dose, On Sat07/10/20 at 2014, Routine Given 07/10/2020 8:24 PM CDT 4 mg naloxone (NARCAN) 0.4 mg/mL injection 0.1 mg 0.1 mg, IV, SEE ADMIN INSTRUCTIONS, Starting on Sat07/11/20 at 0238, Until Sat07/12/20 at 1813, Routine ondansetron (ZOFRAN ODT) tablet 4 mg 4 mg, Oral, EVERY 6 HOURS PRN, Starting on Sat07/12/20 at 0800, Until Sat07/12/20 at 1813, Nausea/Emesis, Routine ondansetron (ZOFRAN) 4 mg/2 mL injection 4 mg 4 mg, IV, ONE TIME ONLY, 1 dose, On Sat07/10/20 at 2015, Routine Given 07/10/2020 8:24 PM CDT 4 mg ondansetron (ZOFRAN) 4 mg/2 mL injection 4 mg 4 mg, IV, EVERY 6 HOURS PRN, Starting on Sat07/11/20 at 0213, Until Sat07/11/20 at 1412, Nausea/Emesis, Routine Given 07/11/2020 2:28 AM CDT 4 mg oxyCODONE (ROXICODONE) tablet 10 mg 10 mg, Oral, EVERY 4 HOURS PRN, Starting on Sat07/11/20 at 0903, Until Sat07/12/20 at 1813, Pain (See admin instructions), Routine Given 07/12/2020 8:30 AM CDT 10 mg Given 07/12/2020 1:31 AM CDT 10 mg Given 07/11/2020 8:49 PM CDT 10 mg pantoprazole (PROTONIX) tablet 40 mg 40 mg, Oral, TWO TIMES DAILY BEFORE MEALS, First dose on Sat07/11/20 at 1030, Until Discontinued, Routine, Previous Med: pantoprazole (PROTONIX) 40 mg Tablet, Delayed Release (E.C.) - Orig Sig - Take 40 mg by mouth 2 times daily . , Indication: Gastroesophageal reflux disease (GERD) Given 07/12/2020 7:08 AM CDT 40 mg Given 07/11/2020 4:57 PM CDT 40 mg Given 07/11/2020 10:30 AM CDT 40 mg sennosides-docusate sodium (SENNA-S) 8.6-50 mg per tablet 2 Tablet 2 Tablet, Oral, TWO TIMES DAILY PRN, Starting on Sat07/11/20 at 0904, Until Sat07/12/20 at 1813, Constipation, Routine sodium chloride 0.9% bolus solution 1,000 mL 1,000 mL, IV, ONE TIME ONLY, 1 dose, On Sat07/10/20 at 2015, at 2,000 mL/hr, Administer over 30 Minutes, Routine New Bag 07/10/2020 8:29 PM CDT 1,000 mL 2000 mL/hr sodium chloride 0.9% infusion IV, at 150 mL/hr, CONTINUOUS, Starting on Sat07/11/20 at 0215, Until Sat07/11/20 at 1414, Routine New Bag 07/11/2020 9:30 AM CDT 150 mL/hr New Bag 07/11/2020 2:38 AM CDT 150 mL/hr sodium chloride flush injection 10 mL 10 mL, IV, ONE TIME ONLY, 1 dose, On Sat07/10/20 at 2245, Routine Given 07/10/2020 10:38 PM CDT 10 mL traZODone (DESYREL) tablet 100 mg 100 mg, Oral, DAILY AT BEDTIME, First dose on Sat07/11/20 at 2100, Until Discontinued, Routine, Previous Med: traZODone (DESYREL) 100 mg tablet - Orig Sig - Take 100 mg by mouth daily at bedtime . Given 07/11/2020 8:45 PM CDT 100 mg documented in this encounter Active and Recently Administered Medications Due to Daylight Saving Time, this section may contain times in both PSYCHOLOGIST EDUCATIONAL and CDT. Scheduled Medication Order 07/10/2020 07/11/2020 07/12/2020 atorvastatin (LIPITOR) tablet 80 mg 80 mg, Oral, DAILY AT BEDTIME, First dose on Sat07/11/20 at 2100, Until Discontinued, Routine 2044 (Given - Provider: BLAISE Kim) calcium GLUCONATE 2,000 mg in sodium chloride (iso-osmotic) 100 mL IVPB (COMPLETED) 2,000 mg, IV, INTRA-PROCEDURE ONCE, 1 dose, Starting on Sat07/11/20 at 1003, Until Sat07/11/20 at 1441, Stat 1341 (New Bag - Provider: Robyn Hernandez RN)1441 (Stopped - Provider: Robyn Hernandez RN) citalopram (CeleXA) tablet 40 mg 40 mg, Oral, DAILY AT BEDTIME, First dose on Sat07/11/20 at 2100, Until Discontinued, Routine, Previous Med: citalopram (CeleXA) 40 mg tablet - Orig Sig - Take 40 mg by mouth daily at bedtime. 2044 (Given - Provider: BLAISE Kim) dextrose 5% - sodium chloride 0.9% infusion IV, at 40 mL/hr, SEE ADMIN INSTRUCTIONS, Starting on Sat07/11/20 at 0907, Until Sat07/12/20 at 1813, Routine dextrose 50% (D50) syringe 12.5 Gram 12.5 Gram, IV, SEE ADMIN INSTRUCTIONS, Starting on Sat07/11/20 at 0907, Until Sat07/12/20 at 1813, Routine dextrose 50% (D50) syringe 25 Gram 25 Gram, IV, SEE ADMIN INSTRUCTIONS, Starting on Sat07/11/20 at 0907, Until Sat07/12/20 at 1813, Routine diphenhydrAMINE (BENADRYL) tablet 25 mg (COMPLETED) 25 mg, Oral, ONE TIME ONLY, 1 dose, On Sat07/11/20 at 2130, Routine 221 (Given - Provider: BLAISE Kim) enoxaparin (LOVENOX) injection 40 mg 40 mg, subCUT, EVERY 24 HOURS, First dose on Sat07/11/20 at 1800, Until Discontinued, Routine, Indication: Prophylaxis of VTE, Dose to be adjusted per facility protocol? Yes 8640 (Given - Provider: Uyen Hill RN) famotidine PF (PEPCID) 20 mg/2 mL injection 20 mg (COMPLETED) 20 mg, IV, ONE TIME ONLY, 1 dose, On Sat07/10/20 at 2015, Routine 2015 (Given - Provider: Hayes Garsia, CLAU) fenofibrate (LOFIBRA) tablet 160 mg 160 mg, Oral, DAILY, First dose on Sat07/11/20 at 1300, Until Discontinued, Routine, Previous Med: fenofibrate (LOFIBRA) 160 mg Tablet - Orig Sig - TAKE 1 TABLET BY MOUTH EVERY DAY Patient taking differently: Take 160 mg by mouth daily. 1504 (Given - Provider: Uyen Hill RN) 0831 (Given - Provider: Gretchen Rosales, RN) fentaNYL PF (SUBLIMAZE) 50 mcg/mL injection 50 mcg (COMPLETED) 50 mcg, IV, ONE TIME ONLY, 1 dose, On Sat07/10/20 at 2200, Routine 2153 (Given - Provider: Hayes Garsia, CLAU) Fish Oil-[place]-3 Fatty Acids 360-1,200 mg capsule 1 Capsule 1 Capsule, Oral, TWO TIMES DAILY WITH MEALS, First dose on Sat07/11/20 at 1700, Until Discontinued, Routine 1701 (Given - Provider: Uyen Hill RN) 0900 (Refused - Provider: Gretchen Rosales, CLAU) glucagon HCL 1 mg/mL injection 1 mg 1 mg, IM, SEE ADMIN INSTRUCTIONS, Starting on Sat07/11/20 at 0907, Until Tu07/12/20 at 1813, Routine heparin, porcine (pf) 10 unit/mL IV syringe 20 Units (COMPLETED) 20 Units, IV, POST-PROCEDURE ONCE, 1 dose, Starting on Sat07/11/20 at 1007, Until Sat07/11/20 at 1437, Stat, Please tube to 516. Thank you! 1437 (Given - Provider: Robyn Hernandez RN) heparin, porcine lock flush (pf) 100 unit/mL injection 500 Units (COMPLETED) 500 Units, IV, POST-PROCEDURE ONCE, 1 dose, Starting on Sat07/11/20 at 1007, Until Sat07/11/20 at 1438, Stat, Please tube to 516. Thank you! 1438 (Given - Provider: Robyn Hernandez RN) heparin, porcine lock flush (pf) 100 unit/mL injection 500 Units (COMPLETED) 500 Units, IV, POST-PROCEDURE ONCE, 1 dose, Starting on Sat07/11/20 at 1006, Until Sat07/11/20 at 1437, Stat, Please tube to 516. Thank you! 1437 (Given - Provider: Robyn Hernandez, CLAU) insulin glargine (LANTUS) injection 16 Units 16 Units, subCUT, TWO TIMES DAILY, First dose on Sat07/11/20 at 1030, Until Discontinued, Routine 1031 (Given - Provider: Uyen Hill RN)2227 (Given - Provider: BLAISE Kim) 0900 (Not Given - Provider: Gretchen Rosales RN - Reason: Lab results - Comment: Held per MD for BG=84) insulin lispro (HumaLOG) injection 0-4 Units 0-4 Units, subCUT, DAILY AT BEDTIME, First dose on Sat07/11/20 at 2100, Until Discontinued, Routine 2100 (Not Given - Provider: BLAISE Kim - Reason: Lab results - Comment: bg 135) insulin lispro (HumaLOG) injection 0-7 Units 0-7 Units, subCUT, THREE TIMES DAILY WITH MEALS, First dose on Sat07/11/20 at 1200, Until Discontinued, Routine 1255 (Given - Provider: Anuradha Polanco RN - Comment: [phone] (Not Given - Provider: Uyen Hill RN - Reason: Lab results - Comment: bg 109) 0900 (Not Given - Provider: Gretchen Rosales RN - Reason: Lab results - Comment: [phone] (Not Given - Provider: Gretchen Rosales RN - Reason: Other - See Comment - Comment: BG<140) iopamidoL (ISOVUE-300) 61 % injection (drawn from multi-use bulk pack) 120 mL (COMPLETED) 120 mL, IV, INTRA-PROCEDURE ONCE, 1 dose, Starting on 07/10/20 at 2237, Until 07/10/20 at 2237, Routine 2237 (Contrast Given - Provider: Izzy Ulloa, RT) levothyroxine (SYNTHROID) tablet 200 mcg 200 mcg, Oral, DAILY EARLY, First dose on Sat07/11/20 at 1030, Until Discontinued, Routine, Previous Med: levothyroxine 200 mcg tablet - Orig Sig - Take 1 Tablet (200 mcg) by mouth daily. Take along with 50 mcg tab =250 mcg total daily Dose change 1030 (Given - Provider: Uyen Hill RN) 0708 (Given - Provider: BLAISE Kim) levothyroxine (SYNTHROID) tablet 50 mcg 50 mcg, Oral, DAILY EARLY, First dose on Sat07/11/20 at 1030, Until Discontinued, Routine, Previous Med: levothyroxine 50 mcg tablet - Orig Sig - Take 1 Tablet (50 mcg) by mouth daily in the morning. Take along with 200 mcg tab =250 mcg daily 1029 (Given - Provider: Uyen Hill RN) 07 (Given - Provider: BLAISE Kim) morphine 4 mg/mL injection 2 mg (COMPLETED) 2 mg, IV, ONE TIME ONLY, 1 dose, On Sat07/11/20 at 0130, Routine 0126 (Given - Provider: Eduarda Morrison RN)0130 (Canceled Entry - Provider: Uyen Hill RN) morphine 4 mg/mL injection 4 mg (COMPLETED) 4 mg, IV, ONE TIME ONLY, 1 dose, On Sat07/10/20 at 2015, Routine 2023 (Given - Provider: Hayes Garsia RN) naloxone (NARCAN) 0.4 mg/mL injection 0.1 mg 0.1 mg, IV, SEE ADMIN INSTRUCTIONS, Starting on Sat07/11/20 at 0238, Until Sat07/12/20 at 1813, Routine ondansetron (ZOFRAN) 4 mg/2 mL injection 4 mg (COMPLETED) 4 mg, IV, ONE TIME ONLY, 1 dose, On Sat07/10/20 at 2015, Routine 2023 (Given - Provider: Hayes Garsia RN) pantoprazole (PROTONIX) tablet 40 mg 40 mg, Oral, TWO TIMES DAILY BEFORE MEALS, First dose on Sat07/11/20 at 1030, Until Discontinued, Routine, Previous Med: pantoprazole (PROTONIX) 40 mg Tablet, Delayed Release (E.C.) - Orig Sig - Take 40 mg by mouth 2 times daily . , Indication: Gastroesophageal reflux disease (GERD) 1030 (Given - Provider: Uyen Hill RN)1657 (Given - Provider: Uyen Hill RN) 0708 (Given - Provider: BLAISE Kim)1600 (Due) sodium chloride 0.9% bolus solution 1,000 mL (COMPLETED) 1,000 mL, IV, ONE TIME ONLY, 1 dose, On Sat07/10/20 at 2015, at 2,000 mL/hr, Administer over 30 Minutes, Routine 2028 (New Bag - Provider: Hayes Garsia RN - Comment: Rate higher than pump max.)215 (Stopped - Provider: Hayes Garsia RN) sodium chloride flush injection 10 mL (COMPLETED) 10 mL, IV, ONE TIME ONLY, 1 dose, On Sat07/10/20 at 2245, Routine 223 (Given - Provider: Izzy Ulloa, RT) traZODone (DESYREL) tablet 100 mg 100 mg, Oral, DAILY AT BEDTIME, First dose on Sat07/11/20 at 2100, Until Discontinued, Routine, Previous Med: traZODone (DESYREL) 100 mg tablet - Orig Sig - Take 100 mg by mouth daily at bedtime . 2044 (Given - Provider: BLAISE Kim) Continuous Medication Order 07/10/2020 07/11/2020 07/12/2020 sodium chloride 0.9% infusion () IV, at 150 mL/hr, CONTINUOUS, Starting on Sat07/11/20 at 0215, Until Sat07/11/20 at 1414, Routine 0238 (New Bag - Provider: BLAISE Kim)0930 (New Bag - Provider: Uyen Hill RN)1400 (Stopped - Provider: Uyen Hill RN) PRN Medication Order 07/10/2020 07/11/2020 07/12/2020 diphenhydrAMINE (BENADRYL) tablet 25 mg 25 mg, Oral, EVERY 8 HOURS PRN, Starting on Sat07/12/20 at 0900, Until Sat07/12/20 at 1813, Itching, Routine 1012 (Given - Provid er: Gretchen Rosales RN) HYDROmorphone (DILAUDID) 2 mg/mL injection 0.5 mg (COMPLETED) 0.5 mg, IV, EVERY 3 HOURS PRN, 2 doses, Starting on Sat07/11/20 at 0418, Until Sat07/11/20 at 0722, Pain (See admin instructions), Pain, Severe, Routine 0423 (Given - Provider: BLAISE Kim)0722 (Given - Provider: BLAISE Kim) HYDROmorphone (DILAUDID) 2 mg/mL injection 0.5 mg (CANCELED) 0.5 mg, IV, EVERY 3 HOURS PRN, Starting on Sat07/11/20 at 0904, Until Sat07/12/20 at 0800, Pain (See admin instructions), Routine 1030 (Given - Provider: Uyen Hill RN)1458 (Given - Provider: Uyen Hill RN)1803 (Given - Provider: Uyen Hill RN)2229 (Given - Provider: BLAISE Kim) 0312 (Given - Provider: BLAISE Kim) hydrOXYzine HCL (ATARAX) tablet 25 mg 25 mg, Oral, EVERY 6 HOURS PRN, Starting on Sat07/11/20 at 1515, Until Sat07/12/20 at 1813, Itching, Routine 1657 (Given - Provider: Uyen Hill RN) 0830 (Given - Provider: Gretchen Rosales RN) ibuprofen (MOTRIN) tablet 400 mg 400 mg, Oral, EVERY 6 HOURS PRN, Starting on Sat07/12/20 at 1040, Until Sat07/12/20 at 1813, Pain, Mild, Routine 1141 (Given - Provid er: Gretchen Rosales RN) LORazepam (ATIVAN) tablet 1 mg 1 mg, Oral, THREE TIMES DAILY PRN, Starting on Sat07/11/20 at 0912, Until Sat07/12/20 at 1813, Anxiety, Routine, Previous Med: LORazepam (ATIVAN) 1 mg tablet - Orig Sig - Take 1 Tablet (1 mg) by mouth 2 times daily as needed for Anxiety. 932 (Given - Provider: Uyen Hill RN)2049 (Given - Provider: BLAISE Kim) 926 (Given - Provider: Gretchen Rosales RN) morphine 4 mg/mL injection 2 mg (CANCELED) 2 mg, IV, EVERY 3 HOURS PRN, 2 doses, Starting on Sat07/11/20 at 0238, Until Sat07/11/20 at 0418, Pain (See admin instructions), Pain, Severe, Routine 0306 (Given - Provider: BLAISE Kim) ondansetron (ZOFRAN ODT) tablet 4 mg 4 mg, Oral, EVERY 6 HOURS PRN, Starting on Sat07/12/20 at 0800, Until Sat07/12/20 at 1813, Nausea/Emesis, Routine ondansetron (ZOFRAN) 4 mg/2 mL injection 4 mg () 4 mg, IV, EVERY 6 HOURS PRN, Starting on Sat07/11/20 at 0213, Until Sat07/11/20 at 1412, Nausea/Emesis, Routine 0228 (Given - Provider: BLAISE Kim) oxyCODONE (ROXICODONE) tablet 10 mg 10 mg, Oral, EVERY 4 HOURS PRN, Starting on Sat07/11/20 at 0903, Until Sat07/12/20 at 1813, Pain (See admin instructions), Routine 0933 (Given - Provider: Uyen Hill RN)1335 (Given - Provider: Uyen Hill RN)1657 (Given - Provider: Uyen Hill RN)2049 (Given - Provider: BLAISE Kim) 0131 (Given - Provider: Susan Schilling RN)0830 (Given - Provider: Gretchen Rosales RN) sennosides-docusate sodium (SENNA-S) 8.6-50 mg per tablet 2 Tablet 2 Tablet, Oral, TWO TIMES DAILY PRN, Starting on Sat07/11/20 at 0904, Until Sat07/12/20 at 1813, Constipation, Routine documented in this encounter Additional Health Concerns Assessment Noted Time PHQ-9 Depression Total Score: 3 07/12/19 21 2:40 AM CDT documented as of this encounter Care Teams [employer] Relationship Specialty Start Date End Date Guerrero Middleton PA-C PCP - General Physician Appraiser [employer] 02/13/18 documented as of this encounter
--- OUTSIDE RECORDS SUMMARY | 2024-05-03 20:41 | XMS_ITS | Encounter Summary ---
Author Organization [facility] Address [address] [place] [address] Care Team Providers Care Experimental Psychologist Name Role Phone Guerrero Middleton PA-C Primary Care Provide r Reason for Visit * Reason Comments Diabetes type 2 Encounter Details Date Type Department Care Team (Late st Contact Info) Description 05/04/2020 2:45 PM MOBILE MARKETING SPECIALIST Office Visit [facility] Endocrinology [address] [place] [address] Prudence Gates MD [address] [place] [address] Uncontrolled type 2 diabetes mellitus with insulin therapy (Primary Dx); Familial hypertriglyceridemia; Acquired hypothyroidism; Tobacco dependence; Non-compliance Social History Tobacco Use Types Packs/Day Years [...] have Coronavirus / COVID-19? No / Unsure 05/04/2020 11:53 AM MOBILE MARKETING SPECIALIST documented as of this encounter Last Filed Vital Signs Vital Sign Reading Time Taken Comments Blood Pressure 108/70 05/04/2020 2:41 PM MOBILE MARKETING SPECIALIST Pulse 84 05/04/2020 2:41 PM MOBILE MARKETING SPECIALIST Temperature - - Respiratory Rate - - Oxygen Saturation - - Inhaled Oxygen Concentration - - Weight 86.2 kg (190 lb) 05/04/2020 2:41 PM MOBILE MARKETING SPECIALIST Height 165.1 cm (5' 5 ) 05/04/2020 2:41 PM MOBILE MARKETING SPECIALIST Body Mass Index 31.62 05/04/2020 2:41 PM MOBILE MARKETING SPECIALIST documented in this encounter Progress Notes * Prudence Gates MD - 05/04/2020 3:09 PM CST Casandra Jones is a 43 y.o. female with a history of familial hyperTG, hypothyroidism, uncontrolled T2DM presenting for evaluation. 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 Most recently in March 2019. This was evident on CT with mild fat stranding. She is being treated with plasmapheresis (with the ports she gets treatments twice a month) She had another bout of pancreatitis and had to be hospitalized in 01/2020 She is on disability. She is on a government program. She is on fenofibrate 160 mg. She went to the [facility] and was told to stop the fish oil. She is also taking a stain She has been struggling with the cost of medications. She had to quit a special diet due to cost. She has not been following her strict ?? She is following a low fat diet. ?? DM: Compliant with insulin basaglar 35 units bid. She has not been using the short acting insulin due to cost She is also taking jardiance on and off due to cost Takes metformin 500 BID. ?? She stopped checking her sugars due to cost She stopped using the sensor due to cost. She will restart because she is not in the doughnut hole any more.?? Needs eye exam: once a year Exercise walks 2-3 miles a day Water intake 120 oz a day Has [...] to Visit Medication Sig Dispense Refill ??? insulin glargine (LANTUS) 100 unit/mL injection Inject 20 units in the morning. 30 mL 1 ??? empagliflozin (JARDIANCE) 25 mg tablet Take 1 tablet by mouth early in the morning. 30 Tablet 6 ??? varenicline (Chantix) 0.5 mg Tablet Take 1 Tablet (0.5 mg) by mouth 2 times daily. 60 Tablet 0 ??? flash glucose sensor (FreeStyle Torey 14 Day Sensor) Kit 1 sensor every 14 days 2 Kit 6 ??? levothyroxine 200 mcg tablet Take 1 Tablet by mouth daily without food in the morning 30 minutes before eating anything. 30 Tablet 5 ??? metFORMIN (GLUCOPHAGE) 500 mg tablet Take 2 Tablets by mouth 2 times daily with meals. 60 Tablet 0 ??? [DISCONTINUED] insulin aspart (NovoLOG) 100 unit/mL injection Inject 1 Units by subcutaneous injection. 25 units with each meal ??? ondansetron (ZOFRAN ODT) 4 mg Tablet, [...] mg by mouth daily at bedtime. ??? LORazepam (ATIVAN) 1 mg tablet Take 1 mg by mouth 2 times daily as needed for Anxiety . ??? citalopram (CeleXA) 40 mg tablet Take 40 mg by mouth daily at bedtime. ??? fenofibrate (LOFIBRA) 160 mg Oral Tab Take 1 Tab by mouth daily. 90 Tab 0 No current facility-administered medications on file prior to visit. Allergies Allergen Reactions ??? Green Pepper Hives ??? Adhesive Unknown ??? Aspartame Headache All artificial sweeteners. ??? Adhesive Tape-Silicones Hives Past Medical History: Diagnosis Date ??? Anxiety [...] of left power flow port 05/11/2019 ??? MS ESOPHAGOGASTRODUODENOSCOPY TRANSORAL DIAGNOSTIC N/A 03/08/2018 ESOPHAGOGASTRODUODENOSCOPY performed by Ceasar Vega MD at [facility] Family History Problem [...] Substance Use Topics ??? Alcohol use: No Frequency: Never Binge frequency: Never PE:The patient is alert oriented x3 BP 108/70 Pulse 84 Ht 5' 5 (1.651 m) Wt 86.2 kg (190 lb) BMI 31.62 kg/m?? NAD Neck is supple, there is no thyroid enlargement. There are no enlarged Lymph nodes CV: S1S2 normal in rhythm and rate Resp: CTA bilaterally Abd: soft, non tender, no organomegaly Ext: No edema Feet exam: Monofilament exam: nl Vibratory sensation on both feet nl PP:nl DTR's nl Labs Lab Results Component Value Date/Time HGBA1C 8.6 (H) 02/16/2020 03:24 PM Lab Results Component Value Date/Time CHOLTOT 162 02/01/2019 10:15 PM HDL 30 (L) 02/01/2019 10:15 PM LDLCALC 02/01/2019 10:15 PM Comment: Calculated LDL is not accurate when the Triglyceride value exceeds 400. LDLDIRECT 110 08/10/2011 07:21 AM TRIGLYCERIDE 1,907 (H) 05/04/2020 12:35 PM Lab Results Component Value Date/Time NA 137 02/29/2020 07:05 AM K 3.9 02/29/2020 07:05 AM CL 100 02/29/2020 07:05 AM CO2 25 02/29/2020 07:05 AM CA 9.1 02/29/2020 07:05 AM BUN 10 02/29/2020 07:05 AM CREAT 0.51 02/29/2020 07:05 AM GLUCOSE 219 (H) 02/29/2020 07:05 AM TOTALPROTEIN 6.3 (L) 02/16/2020 09:20 AM ALBUMIN 3.6 02/16/2020 09:20 AM BILITOTAL <0.2 (L) 02/16/2020 09:20 AM ALKPHOS 81 02/16/2020 09:20 AM AST 02/16/2020 09:20 AM Comment: Unable to result due to lipemia. Unable to evaluate due to lipemia. ALT 02/16/2020 09:20 AM Comment: Unable to result due to lipemia. Unable to evaluate due to lipemia. ANIONGAP 12 02/29/2020 07:05 AM Lab Results Component Value Date/Time [id number] 51 08/10/2011 07:21 AM [id number] 6 08/10/2011 07:21 AM [id number] 57 08/10/2011 07:21 AM Lab Results Component Value Date/Time WBC 8.4 04/13/2020 10:00 AM HGB 13.7 04/13/2020 10:00 AM HCT 41.8 04/13/2020 10:00 AM PLT 252 04/13/2020 10:00 AM MCV 91.5 04/13/2020 10:00 AM No results found for: MICROALBUMIN, MALBUR, NTJHDO30, MICRCREATR, MICRALBURINE Lab Results Component Value Date/Time TSH 33.30 (H) 05/04/2020 12:35 PM ASSESSMENT: Encounter Diagnoses Name Primary? Uncontrolled type 2 diabetes mellitus with insulin therapy Yes ??? Familial hypertriglyceridemia ??? Acquired hypothyroidism ??? Tobacco dependence ??? Non-compliance PLAN: Smoking cessation of most importance. Recommended cessaton DM Needs strict control to be able to control her high Tg as well Needs to start her strict diet glargine 35 units bid Add novolog insulin with meals Sensor reinserted (sample provided) Meal plan reviewed The patient needs to check the blood [...] blood sugars will help with her hypertriglyceridemia. The patient needs to check the blood sugars before meals and bedtime for 1 week and send the numbers so we can adjust the diabetes medications/insulin if on it. Target blood sugars between 80-120 in am and less than 140 premeals Discussed the use of a continuous sensor, Sensor inserted Instruction provided. Regarding her hypothyroidism, it needs to be [...] another pancreatitis episode. Continue plasmapheresis Continue fibrates Add vascepa Weight loss of most importance. Orders Placed This Encounter ??? TSH ??? icosapent ethyL (Vascepa) 1 gram Capsule ??? insulin aspart U-100 (NovoLOG Flexpen U-100 Insulin) 100 unit/mL pen syringe ??? Dexcom G6 Sensor Device ??? Dexcom G6 Transmitter Device Thank you very much for allowing us to participate in this patient care. If you have any questions or concerns, please do not hesitate to contact us, Sincerely yours Prudence Gates LE MARKETING SPECIALIST documented in this encounter Plan of Treatment Upcoming Encounters Date Type Department Care Team (Late st Contact Info) Description 09/14/2024 3:00 PM CDT Office Visit [facility] Heart and Vascular - [facility] [address] [address] [facility] [address] [place] [id number] Marlys Mayer MD [address] [place], [place] [id number] documented as of this encounter Results * (ABNORMAL) TSH (05/04/2020 12:35 PM MOBILE MARKETING SPECIALIST) TSH 33.30(H) 0.27 - 4.20 uIU/mL 05/04/2020 4:26 PM MOBILE MARKETING SPECIALIST [facility] Blood Collection / Unknown 05/04/2020 12:35 PM MOBILE MARKETING SPECIALIST 05/04/2020 12:41 PM MOBILE MARKETING SPECIALIST Prudence Gates MD CHEMISTRY ORDERAB LES [facility] CLIA# [id number] [address] [facility] [place] [address] documented in this encounter Visit Diagnoses Diagnosis Uncontrolled type 2 diabetes mellitus with insulin therapy- Primary Type II or unspecified type diabetes mellitus without mention of complication, uncontrolled Familial hypertriglyceridemia Pure hyperglyceridemia Acquired hypothyroidism Unspecified hypothyroidism Tobacco dependence Tobacco use disorder Non-compliance Personal history of noncompliance with medical treatment, presenting hazards to health documented in this encounter Care Teams Experimental Psychologist Relationship Specialty Start Date End Date Emi, Guerrero Ceasar, PA-C PCP - General Physician Coagulant Dipper 02/13/18 documented as of this encounter
--- OUTSIDE RECORDS SUMMARY | 2024-05-03 20:41 | XMS_ITS | Encounter Summary ---
Author Organization [facility] Address [address] [place] [address] Care Team Providers Care Consumer Affairs Director Name Role Phone Guerrero Middleton PA-C Primary Care Provide r Reason for Visit * Reason Onset Date Comments Medication Refill 05/05/2020 Encounter Details Date Type Department Care Team (Late st Contact Info) Description 05/05/2020 Refill [facility] Endocrinology [address] [place] [address] Prudence Gates MD [address] [place] [address] Social History Tobacco Use Types [...] How often do you attend chur or taoism services? Never 08/21/2018 Do you [...] COVID-19? No / Unsure 05/04/2020 11:53 AM GOLD LEAF PRINTER documented as of this encounter Miscellaneous Notes * Telephone Encounter - Lexus Iyer - 05/05/2020 1:51 PM CST ANGELES: 05/04/2020 NOV: 09/15/2020 LEAF PRINTER documented in this encounter Plan of Treatment Upcoming Encounters Date Type Department Care Team (Late st Contact Info) Description 09/14/2024 3:00 PM CDT Office Visit [facility] Heart and Vascular - [place] [address] [place] [address] Marlys Mayer MD [address] [place] [address] documented as of this encounter Visit Diagnoses Not on filedocumented in this encounter Care Teams Consumer Affairs Director Relationship Specialty Start Date End Date Guerrero Middleton PA-C PCP - General Physician Curtain Roller Assembler 02/13/18 documented as of this encounter
--- OUTSIDE RECORDS SUMMARY | 2024-05-03 20:41 | XMS_ITS | Encounter Summary ---
Author Organization [facility] Address [address] [place] [address] Care Team Providers Care Fur Coat Sewer Name Role Phone Guerrero Middleton PA-C Primary Care Provide r Reason for Visit * Reason Onset Date Comments Needs Form Or Letter Filled Out 05/16/2020 JOHNATHAN Avalos Encounter Details Date Type Department Care Team (Late st Contact Info) Description 05/16/2020 Telephone [facility] Endocrinology [address] [place] [address] Prudence Gates MD [address] [place] [address] Needs Form Or Letter Filled Out (JOHNATHAN Avalos) Social History Tobacco Use Types Packs/Day Years [...] COVID-19? No / Unsure 05/04/2020 11:53 AM SPECIAL FORCES SPECIALIST documented as of this encounter Miscellaneous Notes * Telephone Encounter - Susan Estrada RN - 05/16/2020 12:11 PM CST PA needed for Dexcom sensor and transmitters at [facility]. Rx sent to local [facility]. Chart notes faxed to [facility] at [phone]. IAL FORCES SPECIALIST documented in this encounter Plan of Treatment Upcoming Encounters Date Type Department Care Team (Late st Contact Info) Description 09/14/2024 3:00 PM CDT Office Visit [facility] [address] [address] [address] [place] [address] Marlys Mayer MD [address] [place] [address] documented as of this encounter Visit Diagnoses Not on filedocumented in this encounter Care Teams Fur Coat Sewer Relationship Specialty Start Date End Date Guerrero Middleton PA-C PCP - General Physician Process Lead 02/13/18 documented as of this encounter
--- OUTSIDE RECORDS SUMMARY | 2024-05-03 20:41 | XMS_ITS | Encounter Summary ---
Author Organization [facility] Address [address] [place] [address] Care Team Providers Care Dairy Manager Name Role Phone Guerrero Middleton PA-C Primary Care Provide r Reason for Visit * Reason Comments Medication Refill Encounter Details Date Type Department Care Team (Late st Contact Info) Description 06/17/2020 Refill [facility] Endocrinology [address] [place] [address] Prudence Gates MD [address] [place] [address] Social History Tobacco Use Types Packs/Day Years [...] COVID-19? No / Unsure 06/08/2020 9:32 AM FINANCIAL INSTITUTION PRESIDENT documented as of this encounter Miscellaneous Notes * Telephone Encounter - Sylvia France - 06/17/2020 11:19 AM CST Trisha:05/04/2020 Nov:09/15/2020 NCIAL INSTITUTION PRESIDENT documented in this encounter Plan of Treatment Upcoming Encounters Date Type Department Care Team (Late st Contact Info) Description 09/14/2024 3:00 PM CDT Office Visit [facility] [address] [place] [address] Marlys Mayer MD [address] [place] [address] documented as of this encounter Visit Diagnoses Not on filedocumented in this encounter Care Teams Dairy Manager Relationship Specialty Start Date End Date Guerrero Middleton PA-C PCP - General Physician [employer] Reading Teacher 02/13/18 documented as of this encounter
--- OUTSIDE RECORDS SUMMARY | 2024-05-03 20:41 | XMS_ITS | Encounter Summary ---
Author Organization [facility] Address [address] [place] [address] Care Team Providers Care Field Hockey And Lacrosse Coach Name Role Phone Guerrero iMddleton PA-C Primary Care Provide r Encounter Details Date Type Department Care Team (Latest Contact Info) Description 03/16/2020 9:30 AM CURING OVEN ATTENDANT - 03/16/2020 11:59 PM [facility] Hospital Encounter [facility] Donor Services [address] [address] Alize Arteaga MD NO ADDRESS [...] have Coronavirus / COVID-19? No / Unsure 03/16/2020 9:12 AM CURING OVEN ATTENDANT documented as of this encounter Last Filed Vital Signs Vital Sign Reading Time Taken Comments Blood Pressure 102/69 03/16/2020 11:12 AM CURING OVEN ATTENDANT Pulse 93 03/16/2020 11:12 AM CURING OVEN ATTENDANT Temperature 36.9 ??C (98.4 ??F) 03/16/2020 11:[address] Respiratory Rate 18 03/16/2020 11:12 AM CURING OVEN ATTENDANT Oxygen Saturation - - Inhaled Oxygen Concentration - - Weight - - Height - - Body Mass Index - - documented in this encounter Medications at Time of Discharge Medication Sig Dispensed Refills Start Date End Date traZODone (DESYREL) 100 mg tablet Take 100 mg by mouth daily at bedtime . levothyroxine 200 mcg tablet Take 200 mcg by mouth. 10/28/201809/25 metFORMIN (GLUCOPHAGE) 500 mg tablet Take 500 mg by mouth 2 times daily. 06/05/2018 09/26/2023 insulin glargine (LANTUS) 100 unit/mL injection Inject 20 units in the morning. 30 mL 1 02/29/2020 05/16/2020 empagliflozin (JARDIANCE) 25 mg tablet Take 1 tablet by mouth early in the morning. 30 Tablet 6 12/23/2019 12/07/2020 varenicline (Chantix) 0.5 mg Tablet Take 1 Tablet (0.5 mg) by mouth 2 times daily. 60 Tablet 12/14/2019 09/19/2023 flash glucose sensor (FreeStyle Torey 14 Day Sensor) Kit 1 sensor every 14 days 2 Kit 6 12/14/2019 11/09/2020 levothyroxine 200 mcg tablet Take 1 Tablet by mouth daily without food in the morning 30 minutes before eating anything. 30 Tablet 5 10/28/2018 05/11/2020 metFORMIN (GLUCOPHAGE) 500 mg tablet Take 2 Tablets by mouth 2 times daily with meals. 60 Tablet 06/05/2018 09/15/2020 insulin aspart (NovoLOG) 100 unit/mL injection Inject 1 Units by subcutaneous injection. 25 units with each meal 05/04/2020 ondansetron (ZOFRAN ODT) 4 mg Tablet, Rapid Dissolve Dissolve 1 tablet on top of tongue, then swallow with saliva every 6 hours as needed for nausea/vomiting. 30 Tablet 05/21/2018 09/26/2023 pantoprazole (PROTONIX) 40 mg Tablet, Delayed Release (E.C.) Take 40 mg by mouth 2 times daily . 09/26/2023 rosuvastatin (CRESTOR) 20 mg tablet Take 20 mg by mouth daily at bedtime. 09/19/2023 LORazepam (ATIVAN) 1 mg tablet Take 1 mg by mouth 2 times daily as needed for Anxiety . 06/18/2020 citalopram (CeleXA) 40 mg tablet Take 40 mg by mouth daily at bedtime. 11/01/2020 fenofibrate (LOFIBRA) 160 mg Oral Tab Take 1 Tab by mouth daily. 90 Tab 0 09/04/2012 05/05/2020 documented as of this encounter Progress Notes * Rosales Tapia RN - 03/16/2020 11:39 AM CST Plasma exchange completed using the bard ports on the left and right chest for access and return with albumin as replacement fluids for a 1.0 volume exchange. Pt accessed and deaccessed without issues. Ports locked with heparin (see MAR) and occlusive dressing + gauze applied. Pt left in stable condition with . NG OVEN ATTENDANT * Alize Arteaga MD - 03/16/2020 9:30 AM CST CC: ??44??yo female undergoing prophylaxis for??hypertriglyceridemic pancreatitis in the setting of?recurrent necrotizing pancreatitis requires??plasma exchange. ?? Interval history: Patient doesn't feel great, still recovering from recent hospitalization. 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 Patientreported no change in diet, exercise or medication compliance. She did have some nasal congestion and mild cold symptoms prior to the abrupt onset of severe pancreatitis. During hospitalization, triglycerides were rapidly lowered with apheresis, but Casandar was unable to tolerate oral nutrition due to significant ongoing pain. ?? PMH: ??Hypertriglyceridemia (associated with prior episodes of pancreatitis, received inpatient plasma exchanges 04/2018, 07/2018 and 09/2018, started on prophylactic exchanges 10/2018, one port removed from R chest and new port placed in L chest 02/18/2019), DM, anxiety, GERG, HLD, hypothyroidism, PCOS ?? Meds: as per EPIC. ?? Exam: ?? General Appearance: - Well nourished - No acute distress Eyes: - No scleral icterus Neck: - No masses, symmetrical Cardiac: - No lower extremity edema Skin: - Inspection: No rashes evident - R??and L??chest port sites??well healed with pink scar Respiratory: - Unlabored breathing Neuro: - Alert and Oriented x 3 - Normal Affect ?Labs: 02/29/2020 WBC 9.6, hemoglobin 12.0, hematocrit 37.7, platelets 316 03/16/20 pre-procedure triglycerides 539 ?? A&P: 1. 44??yo female with??recurrent??hypertriglyceridemic pancreatitis requires??prophylactic??plasma exchange. Patient has??recurrent necrotizing pancreatitis??and was??initiated on prophylactic plasmaexchange for prevention of hypertriglyceridemic pancreatitis starting 11/12/18??in consultation withDrs. Rudd and Moreno.??(ASFA category III indication for apheresis). 2. ??We will perform a 1.0 volume plasma exchange with all albumin replacement with 100% fluid balance with 2 g calcium gluconate over the procedure. ??Previously, goal triglycerides <500??per ASFA.?However, there is literature that shows the Optia??instrument can achieve significant reductions in triglyceride level with a preprocedure triglyceride level as low as 250. 3. Plan to see patient in two weeks for next procedure. ?? I have seen and examined the patient, reviewed pertinent notes and records, and remained immediately available throughout the procedure. ?? Alize Arteaga MD, PhD Pastoral Counselor, therapeutic apheresis service [phone] ?? Procedure??notes:?L and??R bard ports??used for procedure. ??Patient tolerated procedure well. NG OVEN ATTENDANT documented in this encounter Plan of Treatment Upcoming Encounters Date Type Department Care Team (Late st Contact Info) Description 09/14/2024 3:00 PM CDT Office Visit [facility] Heart and Vascular - [place] [address] [place] [address] Marlys Mayer MD [address] [place] [address] documented as of this encounter Procedures Procedure Name Priority Date/Time Associated Diagnosis Comments TRIGLYCERIDE Stat 03/16/2020 9:54 AM CURING OVEN ATTENDANT Hypertriglyceridemia documented in this encounter Results * (ABNORMAL) TRIGLYCERIDE (03/16/2020 9:54 AM CURING OVEN ATTENDANT) TRIGLYCERIDE 539(H) <150 mg/dL 03/16/2020 10:26 AM CURING OVEN ATTENDANT [facility] Blood Venipuncture / Unknown 03/16/2020 9:54 AM CURING OVEN ATTENDANT 03/16/2020 9:56 AM CURING OVEN ATTENDANT Narrative [facility] - 03/16/2020 10:26 AM CURING OVEN ATTENDANT TRIGLYCERIDES ? mg/dL Normal ?< 150 Borderline High ?150 - 199 High ? 200 - 499 Very High ? >= 500 Based on AHA/NCEP Guidelines. Alize Arteaga MD CHEMISTRY ORDER [facility]# [id number] [address] [facility] [address] documented in this encounter Visit Diagnoses Diagnosis Hypertriglyceridemia- Primary Pure hyperglyceridemia documented in this encounter Administered Medications Inactive Administered Medications - up to 3 most recent administrations Medication Order MAR Action Action Date Dose Rate Site calcium GLUCONATE 2,000 mg in sodium chloride 0.9% 120 mL IVPB 2,000 mg, IV, INTRA-PROCEDURE ONCE, 1 dose, Starting on Sat03/16/20 at 0930, Until Sat03/16/20 at 1107, Routine New Bag 03/16/2020 10:07 AM CURING OVEN ATTENDANT 2,000 mg 135 mL/hr heparin, porcine (pf) 10 unit/mL IV syringe 20 Units 20 Units, IV, ONE TIME ONLY, 1 dose, On Sat03/16/20 at 0930, Routine, Please tube to 516, thanks! Given 03/16/2020 11:15 AM CURING OVEN ATTENDANT 20 Units heparin, porcine lock flush (pf) 100 unit/mL injection 500 Units 500 Units, IV, ONE TIME ONLY, 1 dose, On Sat03/16/20 at 0930, Routine, Please tube to 516, thanks! Given 03/16/2020 11:15 AM CURING OVEN ATTENDANT 500 Units heparin, porcine lock flush (pf) 100 unit/mL injection 500 Units 500 Units, IV, ONE TIME ONLY, 1 dose, On Sat03/16/20 at 0930, Routine, Please tube to 516, thanks! Given 03/16/2020 11:15 AM CURING OVEN ATTENDANT 500 Units documented in this encounter Care Teams Field Hockey And Lacrosse Coach Relationship Specialty Start Date End Date Guerrero Middleton PA-C PCP - General Physician Warping Machine Operator 02/13/18 documented as of this encounter
--- OUTSIDE RECORDS SUMMARY | 2024-05-03 20:41 | XMS_ITS | Encounter Summary ---
Author Organization [facility] Address [address] Orozco: Epic Prelude ADT [place] [address] Care Team Providers Care Counter Weigher Name Role Phone Guerrero Middleton PA-C Primary Care Provide r Encounter Details Date Type Department Care Team (Latest Contact Info) Description 06/08/2020 Travel Social History Tobacco Use Types Packs/Day [...] week 08/21/2018 How often do you attend [facility] or oriental orthodox services? Never 08/21/2018 Do [...] COVID-19? No / Unsure 06/08/2020 9:32 AM FLOORING SALESPERSON documented as of this encounter Plan of Treatment Upcoming Encounters Date Type Department Care Team (Late st Contact Info) Description 09/14/2024 3:00 PM CDT Office Visit [facility] [address] [place] [address] Marlys Mayer MD [address] [place] [address] documented as of this encounter Visit Diagnoses Not on filedocumented in this encounter Care Teams Counter Weigher Relationship Specialty Start Date End Date Guerrero Middleton PA-C PCP - General Physician Chief Counsel 10/18/18 documented as of this encounter
--- OUTSIDE RECORDS SUMMARY | 2024-05-03 20:41 | XMS_ITS | Encounter Summary ---
Author Organization [facility] Address [address] [place] [address] Care Team Providers Care Online Community Manager Name Role Phone Guerrero Middleton PA-C Primary Care Provide r Reason for Visit * Reason Comments Medication Refill Encounter Details Date Type Department Care Team (Late st Contact Info) Description 06/04/2020 Refill [facility] Endocrinology [address] [place] [address] Prudence Gates MD [address] [place] [address] Social History Tobacco Use Types Packs/Day Years [...] often do you attend chur ch or muslim services? Never 08/21/2018 Do you [...] * Telephone Encounter - Lexus Iyer - 06/06/2020 8:16 AM CST ANGELES: 05/04/2020 NOV: 09/15/2020 IC COORDINATOR documented in this encounter Plan of Treatment Upcoming Encounters Date Type Department Care Team (Late st Contact Info) Description 09/14/2024 3:00 PM CDT Office Visit [facility] Heart and Vascular - [facility] [address] [place] [address] Marlys Mayer MD [address] [place] [address] documented as of this encounter Visit Diagnoses Not on filedocumented in this encounter Care Teams Online Community Manager Relationship Specialty Start Date End Date Guerrero Middleton PA-C PCP - General Physician Traffic Control Technician 02/13/18 documented as of this encounter
--- OUTSIDE RECORDS SUMMARY | 2024-05-03 20:41 | XMS_ITS | Encounter Summary ---
Author Organization [facility] Address [address] [place] [address] Care Team Providers Care Tax Record Clerk Name Role Phone Guerrero Middleton PA-C Primary Care Provide r Encounter Details Date Type Department Care Team (Latest Contact Info) Description 04/13/2020 9:30 AM INDEPENDENT LIVING ADVISOR - 04/13/2020 11:59 PM [facility] Hospital Encounter [facility] [address] [address] Alize Arteaga MD NO ADDRESS [...] have Coronavirus / COVID-19? No / Unsure 04/13/2020 9:27 AM INDEPENDENT LIVING ADVISOR documented as of this encounter Last Filed Vital Signs Vital Sign Reading Time Taken Comments Blood Pressure 106/70 04/13/2020 11:46 AM INDEPENDENT LIVING ADVISOR Pulse 83 04/13/2020 11:46 AM INDEPENDENT LIVING ADVISOR Temperature 36.7 ??C (98.1 ??F) 04/13/2020 11:[address] Respiratory Rate 16 04/13/2020 11:46 AM INDEPENDENT LIVING ADVISOR Oxygen Saturation - - Inhaled Oxygen Concentration [...] Progress Notes * Robyn Hernandez RN - 04/13/2020 9:30 AM CST Plasma exchange completed using L and R chest Apheresis port. 1.0 Volume 100% fluid balancing using5% Albumin as replacement fluid. Pt tolerated well. Next procedure is scheduled for 04/27/2020. Pt left BDS A/Ox4 in stable condition. PENDENT LIVING ADVISOR * Alize Arteaga MD - 04/13/2020 9:30 AM CST CC: ??44??yo female undergoing prophylaxis for??hypertriglyceridemic pancreatitis in the setting of?recurrent necrotizing pancreatitis requires??plasma exchange. ?? Interval history: Patient feeling ok. She reports some swelling/fullness around the eyes and headaches, which she says is consistent with symptoms she gets when her triglycerides start trending up. She is not having any abdominal pain. She reports that she has not been quite as strict with her dietlately, but that she is 100% compliant with medication. ?? PMH: ??Hypertriglyceridemia (associated with prior episodes [...] breathing Neuro: - Alert and Oriented x 4 - Normal Affect ?Labs: 04/13/2020 WBC 8.4, hemoglobin 13.7, hematocrit 41.8, platelets 252 04/13/2020 pre-procedure triglycerides 1,477 ?? A&P: 1. 44??yo female with??recurrent??hypertriglyceridemic pancreatitis [...] the procedure. ?? Alize Arteaga MD, PhD Production Welder, therapeutic apheresis service [phone] ?? Procedure??notes:?L and??R bard ports??used for procedure. ??Patient tolerated procedure well. PENDENT LIVING ADVISOR documented in this encounter Plan of Treatment Upcoming Encounters Date Type Department Care Team (Late st Contact Info) Description 09/14/2024 3:00 PM CDT Office Visit [facility] Heart and Vascular - [facility] [address] [place] [address] Marlys Mayer MD [address] [place] [address] documented as of this encounter Procedures Procedure Name Priority Date/Time Associated Diagnosis Comments CBC WITHOUT DIFFERENTIAL Routine 04/13/2020 10:00 AM INDEPENDENT LIVING ADVISOR Hypertriglyceridemi a TRIGLYCERIDE Routine 04/13/2020 10:00 AM INDEPENDENT LIVING ADVISOR Hypertriglyceridemi a documented in this encounter Results * (ABNORMAL) CBC WITHOUT DIFFERENTIAL (04/13/2020 10:00 AM INDEPENDENT LIVING ADVISOR) WBC 8.4 4.0 - 9.8 K/uL 04/13/2020 10:20 AM [facility] [employer] [facility] RBC 4.57 3.90 - 4.90 M/uL 04/13/2020 10:20 AM [facility] [employer] [facility] HEMOGLOBIN 13.7 11.8 - 14.8 g/dL 04/13/2020 10:20 AM [facility] [employer] [facility] HEMATOCRIT 41.8 35.5 - 44.0 % 04/13/2020 10:20 AM [facility] [employer] [facility] MCV 91.5 82.0 - 99.0 fL 04/13/2020 10:20 AM [facility] [employer] [facility] MCH 30.0 27.2 - 32.6 pg 04/13/2020 10:20 AM [facility] [employer] [facility] MCHC 32.8 31.5 - 35.5 g/dL 04/13/2020 10:20 AM [facility] [employer] [facility] PLATELETS 252 140 - 350 K/uL 04/13/2020 10:20 AM [facility] [employer] [facility] MPV 9.2(L) 9.3 - 12.4 fL 04/13/2020 10:20 AM [facility] [employer] [facility] RDW 15.2(H) 11.5 - 14.5 % 04/13/2020 10:20 AM [facility] [employer] [facility] RDW-STDEV 50.8(H) 37.1 - 48.7 fL 04/13/2020 10:20 AM [facility] [employer] [facility] Blood Venipuncture / Unknown 04/13/2020 10:00 AM INDEPENDENT LIVING ADVISOR 04/13/2020 10:12 AM INDEPENDENT LIVING ADVISOR Alize Arteaga MD HEMATOLOGY YONI SERRANO [facility] [employer] [facility] [id number] [address] [place] [address] * (ABNORMAL) TRIGLYCERIDE (04/13/2020 10:00 AM INDEPENDENT LIVING ADVISOR) Pathologist [facility] TRIGLYCERIDE 1,477(H) <150 mg/dL 04/13/2020 11:11 AM [facility] [employer] [facility] Blood Venipuncture / Unknown 04/13/2020 10:00 AM INDEPENDENT LIVING ADVISOR 04/13/2020 10:12 AM INDEPENDENT LIVING ADVISOR Narrative [facility] - 04/13/2020 11:11 AM INDEPENDENT LIVING ADVISOR TRIGLYCERIDES ? mg/dL Normal ?< 150 Borderline High ?150 - 199 High ? 200 - 499 Very High ? >= 500 Based on AHA/NCEP Guidelines. Alize Arteaga MD CHEMISTRY ORDER OSVALDO [facility] [employer] [facility] CLIA# [id number] [address] [place] [address] documented in this encounter Visit Diagnoses Diagnosis Hypertriglyceridemia- Primary Pure hyperglyceridemia documented in this encounter Administered Medications Inactive Administered Medications - up to 3 most recent administrations Medication Order MAR Action Action Date Dose Rate Site calcium GLUCONATE 2,000 mg in sodium chloride 0.9% 120 mL IVPB 2,000 mg, IV, ONE TIME ONLY, 1 dose, On Sat04/13/20 at 0900, Routine New Bag 04/13/2020 10:18 AM INDEPENDENT LIVING ADVISOR 2,000 mg 135 mL/hr heparin, porcine (pf) 10 unit/mL IV syringe 20 Units 20 Units, IV, ONE TIME ONLY, 1 dose, On Sat04/13/20 at 0900, Routine, Please tube to 516, Thank you! Given 04/13/2020 11:36 AM INDEPENDENT LIVING ADVISOR 20 Units heparin, porcine lock flush (pf) 100 unit/mL injection 500 Units 500 Units, IV, ONE TIME ONLY, 1 dose, On Sat04/13/20 at 0900, Routine, Please tube to 516, Thank you! Given 04/13/2020 11:36 AM INDEPENDENT LIVING ADVISOR 500 Units heparin, porcine lock flush (pf) 100 unit/mL injection 500 Units 500 Units, IV, ONE TIME ONLY, 1 dose, On Sat04/13/20 at 0900, Routine, Please tube to 516, Thank you! Given 04/13/2020 11:36 AM INDEPENDENT LIVING ADVISOR 500 Units documented in this encounter Care Teams Tax Record Clerk Relationship Specialty Start Date End Date Guerrero Middleton PA-C PCP - General Physician Cd Storage And Materials Make Up Helper 02/13/18 documented as of this encounter
--- OUTSIDE RECORDS SUMMARY | 2024-05-03 20:41 | XMS_ITS | Encounter Summary ---
Author Organization [facility] Address [address] Orozco: Epic Prelude ADT [place] [address] Care Team Providers Care Database Manager Name Role Phone Guerrero Middleton PA-C Primary Care Provide r Encounter Details Date Type Department Care Team (Latest Contact Info) Description 03/16/2020 Travel Social History Tobacco Use Types Packs/Day [...] 08/21/2018 How often do you attend [facility] or episcopal services? Never 08/21/2018 Do [...] COVID-19? No / Unsure 03/16/2020 9:12 AM STAGE BUILDER documented as of this encounter Plan of Treatment Upcoming Encounters Date Type Department Care Team (Late st Contact Info) Description 09/14/2024 3:00 PM CDT Office Visit [facility] Heart and Vascular - [facility] [address] [place] [address] Marlys Mayer MD [address] [place] [address] documented as of this encounter Visit Diagnoses Not on filedocumented in this encounter Care Teams Database Manager Relationship Specialty Start Date End Date Guerrero Middleton PA-C PCP - General Physician Cryptographic Machine Operator 02/13/18 documented as of this encounter
--- OUTSIDE RECORDS SUMMARY | 2024-05-03 20:41 | XMS_ITS | Encounter Summary ---
Author Organization [facility] Address [address] [place] [address] Care Team Providers Care Butter Melter Name Role Phone Guerrero Middleton PA-C Primary Care Provide r Reason for Visit * Reason Onset Date Comments Results 05/04/2020 Encounter Details Date Type Department Care Team (Late st Contact Info) Description 05/04/2020 Telephone [facility] Endocrinology [address] [place] [address] Prudence Gates MD [address] [place] [address] Results Social History Tobacco Use Types Packs/Day Years [...] often do you attend chur ch or sikh services? Never 08/21/2018 Do you belong to [...] COVID-19? No / Unsure 05/04/2020 11:53 AM JUNIOR MARKETING ASSOCIATE documented as of this encounter Miscellaneous Notes * Telephone Encounter - Suze Jackson - 05/11/2020 4:31 PM CST Informed pt per md note below [facility] pended for md signature Pt has plenty of the 200's rioght now , just needs the 50.s OR MARKETING ASSOCIATE * Telephone Encounter - Prudence Gaets MD - 05/11/2020 4:17 PM JUNIOR MARKETING ASSOCIATE Yes, please OR MARKETING ASSOCIATE * Telephone Encounter - Suze Jackson - 05/04/2020 5:35 PM CST Left mssg pt to return call zaria last filled 11/201805/11/20 left another mssg to return call Pt returned call , Confirmed she has been taking her med , was getting from [facility] and also has surplus supply at home Along with prev taking med at [facility] which ishe Is now changing to am as discussed , she has also beentaking along with her multivit , She will now spread that out as we discussed Today , also doing diet high in soy and read that that might effect her thyroid level Please advise Wants to make sure you still want dose increase ? OR MARKETING ASSOCIATE * Telephone Encounter - Suze Jackson - 05/04/2020 5:25 PM CST ----- Message from Prudence Gates MD sent at 05/04/2020 5:00 PM JUNIOR MARKETING ASSOCIATE ----- Suze her TSH is very high, this definitely contributes to her high triglycerides. Please call the pharmacy find out if she has been refilling her medication. Increase the levothyroxine from 200 to 250 mcg a day, and to take as instructed during the visit, she says she has been taking it at night, still it should not be like this. .TSH in 6 weeks OR MARKETING ASSOCIATE documented in this encounter Plan of Treatment Upcoming Encounters Date Type Department Care Team (Late st Contact Info) Description 09/14/2024 3:00 PM CDT Office Visit [facility] Heart and Vascular - [facility] [address] [place] [address] Marlys Mayer MD [address] [place] [address] documented as of this encounter Results * TSH (06/08/2020 9:49 AM JUNIOR MARKETING ASSOCIATE) TSH 1.44 0.27 - 4.20 uIU/mL 06/08/2020 11:08 AM JUNIOR MARKETING ASSOCIATE [facility] Blood Venipuncture / Unknown 06/08/2020 9:49 AM JUNIOR MARKETING ASSOCIATE 06/08/2020 10:12 AM JUNIOR MARKETING ASSOCIATE Prudence Gates MD CHEMISTRY ORDERAB LES [facility] CLIA# [id number] [address] [place] [address] documented in this encounter Visit Diagnoses Diagnosis Acquired hypothyroidism- Primary Unspecified hypothyroidism documented in this encounter Care Teams Butter Melter Relationship Specialty Start Date End Date Guerrero Middleton PA-C PCP - General Physician Orbitread Operator 02/13/18 documented as of this encounter
--- OUTSIDE RECORDS SUMMARY | 2024-05-03 20:41 | XMS_ITS | Encounter Summary ---
Author Organization [facility] Address [address] [place] [address] Care Team Providers Care Crystal Lapper Name Role Phone Guerrero Middleton PA-C Primary Care Provide r Reason for Visit * Reason Comments Abdominal Pain Pt to ED for pancrea titis. + hx of pancreatitis and hypertriglyceridemia. Pain located left upper quadrant and radiates to back. * Auth/Cert Specialty Diagnoses / Procedures Referred By Tequila bowman Referred To Contact Emergency Medicine [facility] Emergency Dept [address] [place] [address] Referral ID Status Reason Start Date Expiration Date Visits Re quested Visits Authorized [id number] 1 1 Encounter Details Date Type Department Care Team (Latest Contact Info) Description 06/15/2020 11:02 PM COMBUSTION ENGINEER - 06/18/2020 2:57 PM COMBUSTION ENGINEER Hospital Encounter [facility] Unit [address] [place] [address] Sofia Kelley MD [address] [facility] [address] [place] [address] Louie Calhoun DO [address] [place] [address] Mc Stinson MD [address] [address] [place] [address] Shira Cavanaugh MD [address] [facility] [address] [address] Tobacco use Discharge Disposition: Home or Self Care Social [...] often do you attend chur ch or moravian services? Never 08/21/2018 Do you [...] COVID-19? No / Unsure 06/08/2020 9:32 AM COMBUSTION ENGINEER documented as of this encounter Last Filed Vital Signs Vital Sign Reading Time Taken Comments Blood Pressure 106/59 06/18/2020 12:06 PM COMBUSTION ENGINEER Pulse 74 06/18/2020 12:06 PM COMBUSTION ENGINEER Temperature 36.7 ??C (98 ??F) 06/18/2020 12:06 PM COMBUSTION ENGINEER Respiratory Rate 15 06/18/2020 12:06 PM COMBUSTION ENGINEER Oxygen Saturation 96% 06/18/2020 12:06 PM COMBUSTION ENGINEER Inhaled Oxygen Concentration - - Weight 83.9 kg (185 lb) 06/16/2020 5:00 AM COMBUSTION ENGINEER Height 165.1 cm (5' 5 ) 06/16/2020 5:00 AM COMBUSTION ENGINEER Body Mass Index 30.79 06/16/2020 5:00 AM COMBUSTION ENGINEER documented in this encounter Discharge Summaries * Shira Cavanaugh MD - 06/18/2020 11:47 AM CST Images from the original note were not included. [facility] Adult Hospitalist Discharge Summary Casandra Jones 44 y.o. female 1975 CSN: [id number] Date of Admission: 06/15/2020 Date of Discharge: 06/18/2020 Discharging Physician: Shira Cavanaugh MD MD LOS: 2 days PCP: Guerrero Middleton PA-C Activity: as tolerated Dispo: home Diet: DIET CLEAR LIQUID Code Status at Discharge: Full Code Wound Care: none needed The history and physical were dictated by Louie Calhoun DO on 06/15/2020 and included a complete history and review of systems. This will not be repeated here. Admitting Dx: Pancreatitis Discharge Diagnoses: Metabolic syndrome Hypertriglyceridemia Tobacco use Hyponatremia History of plasmapheresis History of pancreatitis Recurrent pancreatitis Uncontrolled type 2 diabetes mellitus with hyperglycemia Discharge medications and new prescriptions: Medication List START taking these medications oxyCODONE 10 mg tablet Commonly known as: ROXICODONE Take 1 Tablet (10 mg) by mouth every 4 hours as needed for Pain. Max Daily Amount: 60 mg Signed by: Shira Cavanaugh MD Quantity: 30 Tablet Refills: 0 CHANGE how you take [...] Gates MD Quantity: 30 Tablet Refills: 6 FreeStyle Torey 14 Day Sensor Kit 1 [...] Commonly known as: NovoLOG Flexpen U-100 Insulin With meals per correction dose approximately 50 units a day Signed by: Prudence Gates MD Quantity: 15 mL Refills: 1 insulin glargine 100 unit/mL injection Commonly known [...] Your Medications These medications were sent to [facility]/pharmacy #[id number] [place], [place] - [address] [place] [id number] ?? LORazepam 1 mg tablet ?? oxyCODONE 10 mg tablet Consultants: IP CONSULT TO HOSPITALIST IP CONSULT TO CASE MANAGEMENT IP CONSULT TO SOCIAL WORK Brief Synopsis of Diagnostic Studies This Admission (Please see full report for details): Per routine Labs and Studies from this Hospitalization Needing Follow Up: ?? BG per routine ?? TG per routine Discharge Lab Data: (Please note date of lab as some may have preceeded admission) Lab Results Component Value Date/Time WBC 6.9 06/17/2020 03:39 AM HEMOGLOBIN 11.3 (L) 06/17/2020 03:39 AM HEMATOCRIT 37.3 06/17/2020 03:39 AM PLATELETS 187 06/17/2020 03:39 AM SODIUM 139 06/17/2020 03:39 AM CHLORIDE 110 (H) 06/17/2020 03:39 AM POTASSIUM 3.7 06/17/2020 03:39 AM CO2 20 (L) 06/17/2020 03:39 AM BUN 4 (L) 06/17/2020 03:39 AM CREATININE 0.46 (L) 06/17/2020 03:39 AM GLUCOSE 92 06/17/2020 03:39 AM INR 1.0 05/24/2019 10:30 AM AST 16 06/17/2020 03:39 AM ALT 12 06/17/2020 03:39 AM CRP 115.8 (H) 08/23/2018 07:04 AM Discharge Exam: BP 104/56 (BP Location: Left arm, Patient Position (BP): Supine) Pulse 71 Temp 97.4 ??F (36.3 ??C) (Oral) Resp 14 Ht 5' 5 (1.651 m) Wt 83.9 kg (185 lb) SpO2 95% BMI 30.79 kg/m?? Physical Exam: General appearance alert, cooperative, still a bit uncomfortable, appears stated age Lungs clear to auscultation bilaterally Heart regular rate and rhythm, S1, S2 normal, no murmurs Abdomen soft, non-tender. Bowel sounds normal. Extremities extremities normal, atraumatic, no cyanosis or edema Skin Skin color, texture, turgor normal. No rashes or lesions Hospital Course: The patient was admitted with pancreatitis due to hypertriglyceridemia. She undergoes routine outpatient pheresis and has not missed any sessions. Her triglycerides were 3500 on admission. She was placed on insulin drip as per her usual protocol to help bring down triglycerides. She had 1 session of pheresis which was complicated by significant hypotension. Her triglycerides following this were 650 and decision was made to hold further pheresis given her hypotension. Her blood sugars were well controlled on the insulin drip plus dextrose infusion. Her triglycerides were less than 500 on discharge. Pain control is an issue. She was placed on scheduled oxycodone every 6 hours (was on during previous admission and worked well) and Dilaudid IV 1 mg every 2 hours as needed. She also had as needed Lorena available. She will discharge home on p.o. oxycodone with close follow-up. She will resumeher home diabetes regimen on discharge-follows with endocrinology. She did note development of someupper respiratory symptoms prior to discharge. She denies any known Covid exposure. Overall she felt she could manage her symptoms at home and was eager to discharge. Nutrition: Current Diet and/or Nutritional Supplementation ordered: diabetic Discharge Condition: stable Follow-up: Guerrero Middleton PA-C in 7 days. More than 35 minutes were spent in this discharge activity. Signed: Shira Cavanaugh MD 06/18/2020, 11:47 AM USTION ENGINEER documented in this encounter Discharge Instructions * Discharge Instructions* Shira Cavanaugh MD - 06/18/2020 11:47 AM COMBUSTION ENGINEER Your discharging physician is Shira Cavanaugh MD and may be reached at [phone] for any questionsor concerns until you see your doctor. FOLLOW-UP Follow up with Guerrero Middleton PA-C in 7 days. Prescriptions given? Yes *Take oxycodone for pain - This is a narcotic pain medication and this type of medication carries arisk of addiction even when taken for appropriate reasons like the relief of pain. You should use the smallest amount of this medication for the shortest amount of time needed to control your pain. SIGNS AND SYMPTOMS TO REPORT Contact your health care provider if you experience any of the following symptoms: Fever, chills, nausea, vomiting, diarrhea, worsening abdominal pain or any other concerning symptoms. Heart Patients: Weigh yourself [...] is not relieved by nitroglycerin. Smoking Exposure: [facility] encourages all patients to decrease risks associated with smoking and second hand smoke exposure. If you smoke you are advised to quit. Ask your health care provider for advice if you need assistance to stop smoking. Avoid second-hand smoke exposure and do not let people smoke in your home. Please call [phone], our pulmonary rehabilitation department, to learn more about options to reduce your risks. ACTIVITY Your activity level is: as tolerated. DIET Your diet is: diabetic WOUND CARE For your wound/incision: NA. USTION ENGINEER documented in this encounter Medications at Time of Discharge Medication Sig Dispensed Refills Start Date End Date traZODone (DESYREL) 100 mg tablet Take 100 mg by mouth daily at bedtime . levothyroxine 200 mcg tablet Take 200 mcg by mouth. 10/28/2018 09/26/2023 metFORMIN (GLUCOPHAGE) 500 mg tablet Take 500 mg by mouth 2 times daily. 06/05/2018 09/26/2023 LORazepam (ATIVAN) 1 mg tabletIndications:Dep ression with anxiety Take 1 Tablet (1 mg) by mouth 2 times daily as needed for Anxiety. 60 Tablet 06/18/2020 09/15/2020 oxyCODONE (ROXICODONE) 10 mg tabletIndications:Rec urrent pancreatitis Take 1 Tablet (10 mg) by mouth every 4 hours as needed for Pain. Max Daily Amount: 60 mg 30 Tablet 06/18/2020 07/12/2020 fenofibrate (LOFIBRA) 160 mg Tablet TAKE 1 [...] of pancreatitis 360 Capsule 1 05/04/2020 12/07/2020 insulin aspart U-100 (NovoLOG Flexpen U-100 Insulin) 100 unit/mL pen syringe With meals per correction dose approximately 50 units a day 15 mL 1 05/04/2020 07/04/2020 empagliflozin (JARDIANCE) 25 mg tablet Take 1 [...] as of this encounter Progress Notes * Gus Purcell MD - 06/18/2020 6:23 AM CST [facility] HOSPITALIST NOTE 06/18/20 6:23 AM Problem: Triglycerides came back at 490 this a.m. Per Internal Med note, it says to stop the insulin gtt if Trig <500. Should I stop the gtt? Vitals: 06/17/20201306/17/20 2030 06/17/20 2308 06/18/20 0300 Temp: 97.9 ??F (36.6 ??C) 98.5 ??F (36.9 ??C) 97.6 ??F (36.4 ??C) Pulse: 99 82 93 Heart Rate: 102 bpm 82 bpm 93 bpm BP: 115/69 (!) 93/62 97/60 Mean Arterial Pressure: 82 MM HG 72 MM HG 71 MM HG Resp: SpO2: 97% 95% 92% 96% Intervention/Follow up/Discussion: Patient was placed on insulin drip secondary to hypertriglyceridemia mediated acute pancreatitis. Insulin is important triglycerides reducing agent. Patient's triglycerides came down nicely to 490 this morning[address] Notes from Dr. Cavanaugh recommend transitioning to basal/bolus and stopping insulin drip once triglyceride level is below 500. Patient is on clear liquids and her oral intake is not reliable. Prior regimen of Metformin, Jardiance and Lantus held. During her last admission she was on Lantus 12 units with Humalog 3 units plus sliding scale insulin per Dr Cavanaugh. I initiated her conservatively on 6 units of Lantus to be given this morning and sliding scale Humalog with POC glucose checks every 4 hours. I kept her on D5 fluids presently Infusing. Insulin regimen can be titrated based on blood glucose levels. Patient is at risk for hypoglycemia. Gus Purcell MD USTION ENGINEER * Aleksandar Tovar GN - 06/18/2020 5:17 AM CST [facility] Adult Therapeutic Orders Protocol [facility] Approved by: [facility] - Medical Executive Committee Approval Date: 02/11/2020 ORDERS ARE ENTERED ???PER PROTOCOL?? Enter the protocol in the patient's electronic health record using smartphrase:.nursingtherapeuticordersprotocol For inpatients with complaints of minor discomfort Nursing Orders: o [id number] Ice Pack/Cold Therapy 20 minutes every 2 hours to affected area. o [id number] Warm Compress/Heat to affected area 20 minutes every 8 hours to affected area. Medication Orders: o phkywcjbdf-pjeaagv-qtcsdrxahoppbw (CEPACOL) lozenge. 1 each by mouth every 2 hours PRN for sore throat. o Docusate sodium (COLACE) capsule 100 mg, Oral two times daily for constipation except for patients with diagnosed or rule-out bowel obstruction o calcium carbonate (TUMS) chewable tablet. 400mg, Oral every 4 hours PRN for heartburn. o simethicone (MYLICON) tablet. 160 mg Oral four times daily PRN for gas. o Neomycin-Bacitracin Zn-Polymyxin (NEOSPORIN) topical ointment. 1 packet, One Time to affected area. For minor scraps/abrasions. Use cover dressing as needed. o Polyvinyl alcohol-povidon(PF) (REFRESH CLASSIC) 1.4-0.6% ophthalmic solution. 1 drop to affected eye every 4 hours PRN for dry eye. o Sodium chloride (OCEAN) 0.65% nasal solution. 2 sprays to affected nostril every 15 minutes PRN for congestion. o If symptoms persist or worsen contact provider for further orders USTION ENGINEER * Shira Cavanaugh MD - 06/17/2020 7:59 PM CST [facility] Adult Progress Note Admit Date: 06/15/2020 Date of Note: 06/17/2020, 7:59 PM LOS: 1 day Plan Active Problems: 1. Pancreatitis due to hypertriglyceridemia - s/p pheresis yesterday - had significant hypotension - dw Dr. Arteaga this am - will hold further RX, TG 650 this am, recheck in am. Clears for now, ptdoesn't want to advance. Continue insulin drip and if TG < 500 in am will transition to basal/bolus. Watch BG closely. On IVFs. Increase dilaudid to 1 mg at a time every 2 hours PRN, schedule oxycodone (was on last time) and has PRN norco available. Watch vitals closely. Outpatient f/u for routine pheresis. 2. DM2 - holding metformin/jardiance/lantus for now - on insulin drip. Last admit was on lantus 12 units with humalog 3 + SSI. Hope to transition tomorrow 3. Hypertriglyceridemia - TG 3500 on admission, now 650, recheck in am 4. Hyponatremia - chronic, continue fluids 5. Tobacco abuse - encourage cessation Nutrition: Current Diet and/or Nutritional Supplementation ordered: DIET CLEAR LIQUID Quality/Safety/Core Measures/Disposition Planning: DVT Prophylaxis - Enoxaparin PT POC OT POC Activity Order: Present Activity: in bed (06/17/20 1603) Pettit catheter:absent Current Code Status -Full Code Plan discussed with patient, questions answered. Current Planned Disposition - home pending improvement in pain - 1-2 days? Subjective Previous history of present illness and review of systems have been reviewed today as documented inthe H&P on 06/15/2020; medications, labs, studies, notes, orders and consults have been reviewed. I have reviewed the notes from admission. Still having significant pain. Notes dilaudid dose isn't enough, thought fentanyl worked better butcannot get on TCU. Doesn't want to advance past clears today. Otherwise no issues. Objective BP 126/80 (BP Location: Right arm, Patient Position (BP): Sitting) Pulse 89 Temp (!) 96.7 ??F (35.9 ??C) (Axillary) Resp 13 Ht 5' 5 (1.651 m) Wt 83.9 kg (185 lb) SpO2 98% BMI 30.79 kg/m?? Temp (24hrs), Av.7 ??F (36.5 ??C), Min:96.7 ??F (35.9 ??C), Max:98.1 ??F (36.7 ??C) Exam: Gen alert, cooperative, no distress, appears stated age Lungs clear to auscultation bilaterally, normal respiratory effort Heart regular rate and rhythm, S1, S2 normal, no murmurs Abdomen soft, tender RUQ. Bowel sounds normal. No masses, No organomegaly Extremities extremities normal, atraumatic, no cyanosis or edema Neuro Alert and oriented, moves all extremities well Data: I have reviewed all new labs and studies resulted and pertinent ones are noted below CBC: Recent Labs 06/15/20235606/16/2042 06/17/20 0339 WBC 11.6* 9.1 6.9 HGB 14.4 12.6 11.3* HCT 41.9 38.0 37.3 PLT 272 229 187 MCV 88.8 92.7 95.2 BMP: Recent Labs 06/15/20235606/16/20 0642 06/17/20 0339 NA 131* 131* 139 K 4.1 4.0 3.7 CL 97* 99 110* CO2 21* 21* 20* ANIONGAP 13 11 9 CA 8.9 8.1* 7.7* GLUCOSE 272* 251* 92 BUN 7 7 4* CREAT 0.39* 0.40* 0.46* OTHER LYTES:No results for input(s): MG, PO4 in the last 72 hours. AccuCheks: Recent Labs 06/17/20 1536 06/17/20 1640 06/17/20 1747 06/17/20 1841 GLUCPOC 114* 182* 204* 235* LFTs: Recent Labs 06/15/20235606/16/20 0642 06/17/20 0339 TOTALPROTEIN 6.7 5.9* 4.9* BILITOTAL 0.2* 0.2* <0.2* ALKPHOS 63 51 25* ALBUMIN 4.5 3.6 3.5 ALT 16 <5 12 AST 15 <5 16 Coagulation: No results for input(s): PT, INR, APTT in the last 72 hours. Shira Cavanaugh MD [facility] Message via secure chat (7 AM to 7 PM) [phone] (7 PM to 7 AM) USTION ENGINEER * Alize Arteaga MD - 06/17/2020 12:22 PM CST Therapeutic apheresis communication. I discussed the case with Dr. Shira Cavanaugh on 06/17/2020. The patient's triglycerides were at 650 at3 AM this morning and her blood pressure continues to remain extremely low. It is my professional medical opinion that performing apheresis with the current triglyceride level and hypotension would result in more risk than benefit. Dr. Cavanaugh was agreeable to this plan. I updated Casandra this morning that Dr. Cavanaugh and I talked and agreed that it is in her best interestnot to proceed with further apheresis at this time. Casandra expressed understanding. The apheresis service is signing off on this patient for this inpatient admission. If further treatment is desired during this admission please contact us. We will work with Casandra to resume scheduled,prophylactic procedures after discharge. Alize Arteaga MD PhD mental health program director, therapeutic apheresis service USTION ENGINEER * Skyler Willett RN - 06/16/2020 6:36 PM CST Shift Note: Neuro: a/ox4 CV: Pt. In Sinus Rhythm. BP in 90s. Resp: Room air. Clear to auscultation bilaterally. GI: Clear liquid diet. Complains of nausea relieved w Zofran IV. : Adequate urine output. Ambulates to bathroom independently. Pain/Delirium/Sleep: Complains of constant 8/10 pain in upper abdomen. IV Dilaudid administered forpain. Activity: Up to bathroom independently. Shift Undress and Assess performed by two coworkers: 1. CLAU Dyer 2. CLAU Carlson The patient does not have existing skin breakdown, if yes, describe: No new skin breakdown The patient does not have new purple/sissy/dark red over ANY bony prominences (ears, elbows, knees, heels, coccyx, hips, occiput), if yes, describe: N/A ~If ANY answer 'yes'- please re-consult and call wound care~ Wound care consult was not in place. Wound care consult was not initiated. Are there currently any skin protectant dressings in place, if yes, where? n/a If yes, please describe condition of skin under dressing: If no, were any applied and where: N/A Are there any currently any medical devices in place (leg immobilizers, FMS, c- collars, splints, etc.)? If yes, describe skin under device: N/A USTION ENGINEER * Robyn Hernandez RN - 06/16/2020 3:17 PM CST Plasma exchange #1 completed using R and L chest apheresis ports. 1.0 Volume, 100% fluid balance using 5% Albumin as replacement fluids. Pt had several issues with BP. Dr. Arteaga notified. 500 ml NS bolus given pre-procedure and another 500 ml NS bolus was given urgently intra-procedure. Next procedure will be tomorrow 06/17/2020 pending triglyceride level. USTION ENGINEER * Alize Arteaga MD - 06/16/2020 2:59 PM CST CC: ??44??yo female admitted for acute, severe upper abdominal pain concerning for pancreatitis in the context of recurrent??hypertriglyceridemic pancreatitis requires plasma exchange. ?? HPI:??Patient??began feeling very ill with terrible nausea and abdominal pain Saturday evening. She [facility] ED on 06/15/20 late in the day when the pain became unbearable. She has also has a bad toothache for which she has been receiving antibiotics in the past week. ?? PMH: ??Hypertriglyceridemia (associated with prior episodes of pancreatitis, received inpatient plasma exchanges 04/2018, 07/2018 and 09/2018, started on prophylactic exchanges??10/2018, one port removedfrom R chest and new port placed in L chest 02/18/2019), DM, anxiety, GERG, HLD, hypothyroidism, PCOS ?? Meds: as per EPIC. ?? Exam: ?? General Appearance: - Well nourished - Withdrawn, quiet, cooperative Eyes: - No scleral icterus Neck: - No masses, symmetrical Cardiac: - No lower extremity edema Skin: - Inspection: No rashes evident - R??and L??chest port sites??well healed with pink scar Respiratory: - Unlabored breathing Neuro: - Alert and Oriented x??4 - Normal Affect ?Labs: WBC??9.1, hemoglobin??12.6, hematocrit??38.0, platelets??229 ??pre-procedure triglycerides 2,169 ?? A&P: 1. 44??yo female with??acute abdominal pain concerning for pancreatitis in the setting of recurrent??hypertriglyceridemic pancreatitis requires??plasma exchange. 2.Patient has??recurrent necrotizing pancreatitis??and was??initiated on prophylactic plasma exchange for prevention of hypertriglyceridemic pancreatitis starting 11/12/18??in consultation with Drs. Rudd and Moreno.??(ASFA category III indication for apheresis). Patient now follows with Dr. Gates with endocrine. 3. ??We will perform a 1.0 volume plasma exchange with all albumin replacement with 2 g calcium gluconate over the procedure. ??We will perform one procedure daily until triglycerides < 500. 4. Risks and benefits of procedure explained. Patient given the opportunity to ask questions. Informed consent for procedure obtained. ?? I have seen and examined the patient, reviewed pertinent notes and records, and remained immediately available throughout the procedure. ?? Alize Arteaga MD, PhD [employer] Officer, therapeutic apheresis service [phone] ?? Procedure??notes:??Patient reports that she is in very significant abdominal pain and is clearly very uncomfortable. ??L and??R bard ports??used for procedure. ??500 mL normal saline administered prior to start of procedure given the patient's hypotension. I came to the bedside for the first 15 minutes of the procedure, given the significant fluid shifts expected during this part of the procedure. MAP dropped below 60 at 15 minutes into the procedure. I ordered the procedure to be paused. I ordered the administration of additional infusion of 500 mL normal saline at that time. After the infusion, the patient's blood pressure recovered to a MAP greater then 65. The patient tolerated the remainder of the procedure. USTION ENGINEER * Jet Crowder RN - 06/16/2020 5:20 AM CST Pt arrived to TCU at 0345 during Epic downtime ?UNDRESS AND ASSESS FOR ALL ADMISSIONS AND TRANSFERS: Remove all existing dressings and assess all wounds upon admission (unless instructed by physician). Undress and Assess performed by: bedside coworker Jet RN and bedside coworker Chiquita OLGUIN on admission to TCU 4230 Chin Score: 1. Patient does not have skin breakdown. [...] consult wound care services. 5. Is a auditor medical claims in place?no If yes, remove device/brace/splint to [...] etc.). Wound care consult was not initiated. [facility] Skin Care Injury Prevention and Treatment Protocol [facility] Approved by: [facility] - Medical Executive Committee Approval Date: 05/14/2019 [...] treatments found in the Wound Care Algorithm. USTION ENGINEER documented in this encounter H&P Notes * Mc Stinson MD - 06/16/2020 7:41 AM CST [facility] Adult Hospitalist [address] [place], [place] History and Physical Mc Stinson MD Hospitalist 06/16/2020 Patient's Primary Care Physician: Guerrero Middleton PA-C , Name: Casandra Jones Age: 44 y.o. Sex: female Chief Complaint: abd pain History of Present Illness I obtained the history from patient, the chart, ED notes and I reviewed the available old records also. Casandra Jones is a 44 y.o. female Patient comes with intractable abdominal pain that started on Saturday night. She does have h/o recurrent pancreatitis, due to hyperTG She is experiencing epigastric and left upper quadrant pain, which has been a constant dull ache with occasional severe stabbing. ??No radiation. ??She has been having nausea but no vomiting or fevers. She came to the emergency room last night, early this AM ,her triglyceride level was found to be very high 3492, lipase 36. ??Normal LFTs. ??Her blood sugar was 272. She does have a history of diabetes mellitus on insulin, Metformin and Jardiance. ??She does have the history of recurrent pancreatitis due to severe hyper- triglyceridemia. ??Her last plasmapheresiswas done a week ago Saturday. She was admitted last night and she is complaining of severe pain in her upper abdomen. ??We are going to increase her Dilaudid to 0.5 mg every hour as needed. ??She may need Dilaudid drip. Started her on insulin drip and I am in the process of contacting Dr. Arteaga for plasmapheresis. She had a root canal done about 2 weeks ago, completed ABx, no tooth ache; no tenderness; she has aheadache when her TG is high; HOME MEDICATIONS reviewed and updated; PROBLEM LIST/ ASSESSMENT / PLAN Active Hospital Problems Diagnosis ??? Recurrent pancreatitis due to hypertriglyceridemia History of pancreatitis -- she does have h/o evidence of pancreatitis on CT, usually her lipase is normal, has severe upper abdominal pain -- clear liquids -- cont. Hydration iv. -- needs plasmepheresis again ( last session was a week ago Sat, -- she sees dr Arteaga ??? Uncontrolled type 2 diabetes mellitus with hyperglycemia -- hold metformin, jardiance, lantus, novololg -- started on insulin drip for hyper TG mgmt. , not for DKA ??? Hypertriglyceridemia -- 3492 last night, 2169 this AM -- repeat today -- contacting dr Arteaga ??? History of plasmapheresis -- last session a week ago Sat. ??? Hyponatremia -- chronic, mild -- on D5NS ??? Tobacco use -- cessation rec. -- have not started Chantix yet ??? Metabolic syndrome ??? Assess nutritional status -- consulted nutritional services Code status: FULL Estimated lenght of stay: > 24 hours Exam Vitals: 06/16/20 0315 06/16/20 0352 06/16/20 0500 06/16/20 0715 BP: 96/55 102/62 (!) 88/46 BP Location: Left arm Left arm Patient Position (BP): Sitting Supine Pulse: 98 92 82 Resp: 17 10 14 Temp: 97.9 ??F (36.6 ??C) 98 ??F (36.7 ??C) TempSrc: Oral Oral SpO2: 92% 96% 96% Weight: 83.9 kg (185 lb) Height: 5' 5 (1.651 m) GENERAL: no acute distress SKIN: no rash Head:normocephalic, atraumatic Eyes:conjunctivae,corneas clear, PERRL,EOMI Ears:external ear canals clear Throat: clear, moist mucosa NECK: supple , no JVD LUNGS: clear to auscultation bilaterally HEART: no murmur , no rubs, no gallops ABDOMEN: soft, UPPER ABDOMINAL tenderness , no guarding or rebound , non- distended, no mass is palpable, normal active bowel sounds EXTREMITIES: no clubbing, cyanosis; no edema NEURO: Awake, Alert, NON-FOCAL Review of Systems NEGATIVE for: GEN: No fever, no weight loss, no weight gain Skin: No rash HEENT: no sinus complaints Lungs: No cough, no sputum no shortness of breath, no wheezing Cardiac: No CP, no SOB, GI: no vomiting, no diarrhea, no constipation : No dysuria, no frequency Musculoskeletal: No back pain, no joint pain NEURO: No headaches, no seizures; Psych.: no anxiety, no depression All other ROS reviewed and are negative The remaining review of systems was negative except as described in HPI and below: Data I have reviewed the ED notes, the admission labs, imaging studies, EKG and the review is significant for:see also in assessment and plan. I have reviewed previous hospital, office notes and previous laboratory data and imaging studies, procedure notes also that were relevant to this encounter. Allergies Allergen Reactions ??? Green Pepper Hives ??? Adhesive Unknown ??? Aspartame Headache All artificial sweeteners. ??? Adhesive Tape-Silicones Hives Social History Occupational History Employer: [employer] Tobacco Use ??? Smoking status: Current Every Day Smoker Packs/day: 1.00 Years: 18.00 Pack years: 18.00 Types: Cigarettes ??? Smokeless tobacco: Never Used ??? Tobacco comment: nicotine patch requested Substance and Sexual Activity ??? Alcohol use: No Frequency: Never Binge frequency: Never ??? Drug use: No ??? Sexual activity: Yes Partners: Male Past Medical History: Diagnosis Date ??? Anxiety [...] of left power flow port 05/11/2019 ??? [place] ESOPHAGOGASTRODUODENOSCOPY TRANSORAL DIAGNOSTIC N/A 03/08/2018 ESOPHAGOGASTRODUODENOSCOPY performed by Sofia Vega MD at [facility] Family History Problem Relation Name Age of Onset ??? Diabetes Father ??? High Cholesterol Father ??? Hypertension Father ??? Stroke Mother ??? Heart Disease Mother ??? Thyroid Disease Mother ??? High Cholesterol Mother ??? Heart Disease Maternal Grandmother ??? Diabetes Maternal Grandmother ??? Diabetes Paternal Grandmother ??? Diabetes Mother USTION ENGINEER documented in this encounter ED Notes * Brigitte Chand RN - 06/16/2020 3:27 AM CST Report given to CLAU Marti USTION ENGINEER * Brigitte Chand RN - 06/16/2020 2:45 AM CST Per MD, Pt to stay in ER until Hospitalist calls back about bed placement. USTION ENGINEER * Brigitte Chand RN - 06/16/2020 2:30 AM CST Pt given Fentanyl according to MAR. Patient/family has been informed about benefits and any potential clinically significant side effects or other concerns regarding the administration of the drug they have just been given. RR equal and non-labored. Call light within reach. Pt asking to speak with MD. notified. USTION ENGINEER * Brigitte Chand RN - 06/16/2020 2:26 AM CST CLAU Powers notified of ready bed and pt transport. USTION ENGINEER * Brigitte Chand RN - 06/16/2020 2:23 AM CST Pt complaining of pain. notified. USTION ENGINEER * Brigitte Chand RN - 06/16/2020 1:47 AM CST Pt up to bathroom. USTION ENGINEER * Brigitte Chand RN - 06/16/2020 1:30 AM CST Pt given medication according to JUN. Patient/family has been informed about benefits and any potential clinically significant side effects or other concerns regarding the administration of the drug they have just been given. RR equal and non-labored. Pt sitting on stretcher. Call light within reach. Family at bedside. Pt given ice chips. USTION ENGINEER * Brigitte Chand RN - 06/16/2020 1:25 AM CST Pt complaining of pain, stating the morphine is not taking the pain away . Pt asking for ice chips. notified. USTION ENGINEER * Brigitte Chand RN - 06/16/2020 12:48 AM CST Pt given medication according to MAR. Patient/family has been informed about benefits and any potential clinically significant side effects or other concerns regarding the administration of the drug they have just been given. RR equal and non-labored. USTION ENGINEER * Brigitte Chand RN - 06/16/2020 12:32 AM CST Pt complaining of pain. Pt holding her side and leg bouncing. notified. USTION ENGINEER * Mala Elaine RN - 06/16/2020 12:03 AM CST PIV access obtained, pt tolerated well. Pt rating pain 9/10. Pt medicated per MAR. Patient/family has been informed about benefits and any potential clinically significant side effects or other concerns regarding the administration of the drug they have just been given. IV NS infusing as charted in MAR. Call light in reach. USTION ENGINEER * Brigitte Chand RN - 06/15/2020 11:40 PM CST Pt to ED with c/o of pain in left rib area under her breast. Pt states I have a genetic disorder the raises my triglyceride level and causes pancreatitis . Pt states that she has been dealing with this episode since Saturday and the pain has been getting worse. Pt states she has nausea but no vomiting and headaches. Pt denies SOB, CP, cough, fevers. On assessment pt is A&Ox4. RR equal and non-labored. Call light within reach. Pt is verbally expressing pain as well and holding her left side. Iv est, labs drawn. Hooked up to monitor. MD at bedside. Family at bedside. USTION ENGINEER * Sofia Kelley MD - 06/15/2020 10:35 PM CST HISTORY OF PRESENT ILLNESS Casandra Jones, a 44 y.o. female presents to the ED with a Chief Complaint of Abdominal Pain Subjective 11:43 PM: Casandra Jones is a 44 y.o. female with a history of acute on chronic pancreatitis, type 2diabetes mellitus with long-term current use of insulin, HLD, hypertriglyceridemia, GERD, PCOS, hypothyroidism, and chylomicronemia syndrome, who presents with left upper quadrant abdominal pain associated with nausea and headaches since Saturday. Patient reports that she began feeling unwell on Saturday, 3 days ago, with recurrent left upper quadrant abdominal pain. The pain is the most severe on the left upper side of her abdomen but she reports less severe pain diffusely to the center of her abdomen. She denies any significant pain on the right side of her abdomen. Patient reports a history of recurrent pancreatitis and states that her current pain feels similar. She states that she has not been vomiting in association with her pain butshe reports that she has been very nauseous constantly since her pain began. She also reports that she has been having headaches daily since Saturday. Additionally, she says that her son has told her that he has noticed her eyes turning yellow in association with her headaches. She states that her bowel movements have been normal and unchanged from her baseline. Patient also reports that she has not had any associated fevers. Patient reports a past abdominal surgical history significant for a hysterectomy and an appendectomy. She states that she has not had any other surgeries on her abdomen. Severity: severe; rated 9/10 Duration: 4 days Progression: worsening Quality: unspecified Radiation: to center of abdomen Associated symptoms: abdominal pain, nausea, headaches, yellowing of eyes Primary Care Doctor: Guerrero Middleton PA-C History provided by: The patient and medical records Arrived by: Private vehicle Arrived from: Home REVIEW OF SYSTEMS Review of Systems Constitutional: Negative for chills and fever. HENT: Negative for congestion, hearing loss and sore throat. Eyes: Negative for visual disturbance. +Yellowing of eyes (per patient's son) Respiratory: Negative for cough. Cardiovascular: Negative for chest pain. Gastrointestinal: Positive for abdominal pain (LUQ) and nausea. Negative for blood in stool, constipation, diarrhea and vomiting. Genitourinary: Negative for dysuria and frequency. Musculoskeletal: Negative for myalgias. Skin: Negative for rash. Neurological: Positive for headaches. All other systems reviewed and are negative. [...] these medications which have NOT CHANGED Details fenofibrate (LOFIBRA) 160 mg Tablet TAKE 1 [...] of pancreatitis Qty: 360 Capsule, Refills: 1 insulin aspart U-100 (NovoLOG Flexpen U-100 Insulin) 100 unit/mL pen syringe With meals per correction dose approximately 50 units a day Qty: 15 mL, Refills: 1 empagliflozin (JARDIANCE) 25 mg tablet [...] 20 mg by mouth daily at bedtime. LORazepam (ATIVAN) 1 mg tablet Take 1 mg by mouth 2 times daily as needed for Anxiety . citalopram (CeleXA) 40 mg tablet Take 40 mg by mouth daily at bedtime. !! - Potential duplicate medications found. Please discuss with provider. Objective PHYSICAL EXAM INITIAL VS BP: 134/85 (06/15/202236), Heart Rate: 107 bpm (06/15/202236), Resp: 18 (06/15/202236), Pulse: (!) 107 (06/15/202236), Temp: 98.9 ??F (37.2 ??C) (06/15/202236), Temp src: Oral (06/15/202236), SpO2: 98 % (06/15/202236), Height: 5' 5 (165.1 cm) (06/15/202236), Weight: 81.6 kg (180 lb) (06/15/202236), BMI (Calculated): 29.95 (06/15/202236) No LMP recorded. Patient has had a hysterectomy. Physical Exam Vitals signs and nursing note reviewed. Constitutional: Comments: Appears uncomfortable HENT: Head: Normocephalic and atraumatic. Eyes: Conjunctiva/sclera: Conjunctivae normal. Pupils: Pupils are equal, round, and reactive to light. Neck: Musculoskeletal: Neck supple. Trachea: No tracheal deviation. Cardiovascular: Rate and Rhythm: Regular rhythm. Tachycardia present. Heart sounds: No murmur. No friction rub. No gallop. Comments: Mild tachycardia Pulmonary: Effort: Pulmonary effort is normal. No respiratory distress. Breath sounds: No wheezing or rales. Abdominal: General: Bowel sounds are normal. There is no distension. Palpations: Abdomen is soft. There is no mass. Tenderness: There is abdominal tenderness. There is no guarding or rebound. Comments: Central and left upper abdominal tenderness. Musculoskeletal: Normal range of motion. General: No tenderness. Skin: General: Skin is warm and dry. Findings: No rash. Neurological: Mental Status: She is alert and oriented to person, place, and time. Coordination: Coordination normal. Comments: Moves all extremities equally and follows commands without gross deficit DIAGNOSTICS LAB: No data to display RADIOLOGY: No orders to display EKG: PROCEDURES Procedures MEDICAL DECISION MAKING AND PLAN OF CARE --On initial examination, saw and evaluated patient. Discussed plan to obtain basic labs and urine,as well as the plan to give medication for pain and nausea. Patient understands and agrees with theplan. Will obtain CBC with differential, CMP, lipase, triglyceride, and UA w/ reflex microscopic and will give patient IV Zofran 4 mg, IV morphine 4 mg, and a 1,000 mL normal saline IV fluid bolus. ED provider and ED nurse verbally discussed patient plan of care at this time. 12:35 AM: Informed by nursing staff that the patient had no pain relief after morphine and wants more pain medication. Will give an additional IV morphine 8 mg. 1:27 AM: Per nursing staff, the patient is complaining of pain and is requesting additional pain medication. Will give IV fentanyl 100 mcg. 1:35 AM: Called lab regarding patient's CMP. 1:42 AM: Hospitalist consult placed. 1:57 AM: Updated patient on results, diagnosis, and plan for admission. Patient agrees with the plan. The opportunity for questions was given and questions were answered to the patient's satisfaction. All questions and concerns have been addressed. 2:08 AM: [facility] all pertinent aspects of the case including HPI details, physical exam findings, testing completed, medications given, the patient's currentcondition, my clinical impression, and the need for admission for further evaluation and treatment.Dr. Calhoun agrees to accept the patient for admission to the Medical floor. 2:39 AM: Rechecked patient and updated her on the current plan. She is agreeable. 3:01 AM: Called and updated Dr. Louie Calhoun ([facility]) on the plan to switch the patient fromthe Medical floor to Step Down. Dr. Calhoun is aware and agreeable with this plan. MDM Summary Statement: Presents with abdominal pain. Differential includes pancreatitis, pyelonephritis, kidney stone, andSBO among others. History of chronic pancreatitis related to hypertriglyceridemia. Triglycerides are quite elevated tonight though lipase is normal. Her pain is consistent with her prior episodes of pancreatitis. Will admit for pain and nausea control and IV fluids. I have reviewed previous: notes and labs I have reviewed current: labs I have reviewed nursing notes related to past medical history, social history, and review of systems and agree, unless otherwise noted. Consults: hospitalist Name of hospitalist: [facility] Current Discharge Medication List CONTINUE these medications which have NOT CHANGED Details fenofibrate (LOFIBRA) 160 mg Tablet TAKE 1 [...] of pancreatitis Qty: 360 Capsule, Refills: 1 insulin aspart U-100 (NovoLOG Flexpen U-100 Insulin) 100 unit/mL pen syringe With meals per correction dose approximately 50 units a day Qty: 15 mL, Refills: 1 empagliflozin (JARDIANCE) 25 mg tablet [...] 20 mg by mouth daily at bedtime. LORazepam (ATIVAN) 1 mg tablet Take 1 mg by mouth 2 times daily as needed for Anxiety . citalopram (CeleXA) 40 mg tablet Take 40 mg by mouth daily at bedtime. !! - Potential duplicate medications found. Please discuss with provider. LAST VS BP: 102/62 (06/16/20351), Heart Rate: 92 bpm (06/16/20351), Resp: 10 (06/16/20351), Pulse: 92(06/16/20351), Temp: 97.9 ??F (36.6 ??C) (06/16/20351), Temp src: Oral (06/16/20351), SpO2: 96 % (06/16/20351) CLINICAL IMPRESSION Final diagnoses: [K85.90, K86.1] Acute on chronic pancreatitis (Primary) [E78.1] Hypertriglyceridemia DISPOSITION, EDUCATION AND MEDICATION RECONCILIATION Medications reconciled. See after visit summary for patient education on discharged patients. ED Disposition ED Disposition Condition User Date/Time Comment Admit Stable Sofia Kelley MD [facility] Jun 16, 2020 1:42 AM ATTESTATION STATEMENTS This note has been prepared by Ela Olivo and Bud Ward acting as a scribe for Dr. Sofia Kelley on 06/15/2020 at 4:43 AM. The scribe's documentation has been prepared under my direction and personally reviewed by me, Sofia Kelley MD , in its entirety on 06/16/20 at 6:36 AM. I confirm that the note above accurately reflects all work, treatment, procedures, and medical decision making performed by me. USTION ENGINEER documented in this encounter Miscellaneous Notes * Care Plan - Jeff Robbins RN - 06/18/2020 1:38 PM CST Pt had unremarkable shift; VSS; pain adequately controlled; discharge orders signed. Problem: Pain, Potential/Actual Goal: Verbalizes/displays acceptable comfort level or baseline comfort level Description: Outcome: Resolved Problem: Infection Risk/Actual Goal: Infection Risk/Actual: Infection prevention, control, or resolution by discharge Description: Outcome: Resolved Problem: Safety/Fall Goal: Safety/Fall: Absence of fall, injury, harm during hospitalization Description: Outcome: Resolved Problem: Discharge Planning Goal: Identify discharge needs upon admission and through discharge Description: Outcome: Resolved Problem: Mobility Goal: Absence of/Reduce Fall Risk [...] position changes if patient experiencing dizziness Outcome: Resolved Problem: Medications Goal: Absence of/Reduce Fall Risk r/t Medications Description: Patient is a fall risk because of medications (i.e. - BP meds, CV/ROUGE MILLER meds, seizure meds, diuretics, pain meds, psych [...] and patient tolerance in hand-off communication Outcome: Resolved Problem: Volume/Electrolyte Status Goal: Absence of/Reduce Fall [...] for nausea and vomiting as needed Outcome: Resolved Problem: Nutrition/Endocrine Goal: Achieve optimal nutrition and fluid status to meet metabolic needs throughout hospitalization Outcome: Resolved Problem: Gastrointestinal Goal: Achieve optimal gastrointestinal function by discharge or maintain baseline function Outcome: Resolved Problem: Behavior Goal: Absence of/Reduce Fall Risk [...] sitter 11. Appropriate lighting for day/night Outcome: Resolved Problem: Musculoskeletal Goal: Achieve optimal musculoskeletal function by discharge or maintain baseline function Outcome: Resolved Problem: Skin Goal: Maintain skin integrity and/or promote wound healing by discharge Outcome: Resolved Wt Readings from Last 3 Encounters: 06/16/20 83.9 kg (185 lb) 05/04/20 85.7 kg (189 lb) 05/04/20 86.2 kg (190 lb) Temp Readings from Last 3 Encounters: 06/18/20 98 ??F (36.7 ??C) (Oral) 06/08/20 98.5 ??F (36.9 ??C) (Oral) 05/04/20 98.7 ??F (37.1 ??C) (Oral) BP Readings from Last 3 Encounters: 06/18/20 106/59 06/08/20 106/65 05/04/20 115/80 Pulse Readings from Last 3 Encounters: 06/18/20 74 06/08/20 (!) 106 05/04/20 89 Resp Readings from Last 3 Encounters: 06/18/20 15 06/08/20 18 05/04/20 18 PF Readings from Last 3 Encounters: No data found for PF @LASTSAO2(3)@ USTION ENGINEER * Care Plan - Aleksandar Tovar GN - 06/18/2020 6:50 AM CST Shift Note: Insulin gtt turned off at 0630 per MD and Triglycerides being <500, which was goal. Neuro: A&Ox4. Pain 11/05 in abd. Scheduled and prn medications given per JUN. CV: SR (70-90). BP 90-100. 2/2 pulses. Afebrile. Resp: room air. LS clear. GI: No BM overnight. Clear liquid diet. : UOP adequate Pain/Delirium/Sleep: slept well between care. Activity: up ad gaudencio in room, turns independently and as needed. Shift Undress and Assess performed by two coworkers: 1. Sanchez RN 2. CLAU Mccrary The patient does not have existing skin [...] If yes, describe skin under device: Education: medications, insulin gtt, pain management USTION ENGINEER * Care Plan - Jet Crowder RN - 06/17/2020 6:04 AM CST Shift Note: Neuro: AOx4, c/o pain relieved by PRNs CV: NSR, SBP high 80s-100s, afebrile, lovenox administered Resp: room air, lungs clear GI/: no BM this shift, adequate UOP Pain/Delirium/Sleep: pain controlled with PRN dilaudid and norco Activity: pt moves independently in bed, SBA to bathroom Shift Undress and Assess performed by two coworkers: 1. Jet OLGUIN 2. Xochilt SANDHU The patient does not have existing skin [...] protectant dressings in place, if yes, where? If yes, please describe condition of skin under dressing: If no, were any applied and where: Are there any currently any medical devices in place (leg immobilizers, FMS, c- collars, splints, etc.)? If yes, describe skin under device: Education: Patient has Chin Score of 21. Patient educated on importance of q2 hour repositioning and use of positioning supports to prevent skin breakdown. Also educated patient on importance of CHG bathing during hospitalization as infection prevention measure. Educated patient on high fall riskprecautions, use of assistive devices, and use of call light. Explained that patient has increased risk of fall during hospitalization due to telemetry/monitoring devices, new medications, and clinical status, and that patient should not attempt to get up without assistance from staff. Patient/family demonstrates understanding of stated education. USTION ENGINEER * Care Plan - Chiquita Holden LMSW - 06/16/2020 11:01 AM CST Clinical documentation reviewed. Comprehensive Discharge Planning Risk Assessment was completed. Readmission Risk (patient becomes high risk with a score of 8 or greater) 5 Total Score (Last filed: Jun 16, 2020 0601) 5 Prior Hospitalizations Total Score of 9 or below does not identify immediate needs for discharge. Age Score: 0 Disability Score: 0 Prior Living Status Score: {0 Mobility Limitation Score: 0 TOTAL SCORE: [address] consult if needs for discharge are identified. Care Management will continue to follow for discharge planning. LOBO Selby student Above documentation reviewed. Agree with plan with any changes noted below. LOBO Reyes, OPERATIONS ARCHITECT Day 1 - Current ([facility]) Patient, family, or healthcare designee is participating in individual care plan process Outcome: Met Problem: Discharge Planning Goal: Identify discharge needs upon admission and through discharge Description: Outcome: Progressing USTION ENGINEER documented in this encounter Plan of Treatment Upcoming Encounters Date Type Department Care Team (Late st Contact Info) Description 09/14/2024 3:00 PM CDT Office Visit [facility] [place] [id number] [place] [id number] Marlys Mayer MD [address] [place], [place] [id number] documented as of this encounter Procedures Procedure Name Priority Date/Time Associated Diagnosis Comments POC GLUCOSE Routine 06/18/2020 8:36 AM COMBUSTION ENGINEER POC GLUCOSE Routine 06/18/2020 5:59 AM COMBUSTION ENGINEER TRIGLYCERIDE Routine 06/18/2020 5:08 AM COMBUSTION ENGINEER POC GLUCOSE Routine 06/18/2020 5:01 AM COMBUSTION ENGINEER POC GLUCOSE Routine 06/18/2020 4:02 AM COMBUSTION ENGINEER POC GLUCOSE Routine 06/18/2020 2:50 AM COMBUSTION ENGINEER POC GLUCOSE Routine 06/18/2020 2:09 AM COMBUSTION ENGINEER POC GLUCOSE Routine 06/18/2020 1:14 AM COMBUSTION ENGINEER POC GLUCOSE Routine 06/18/2020 12:04 AM COMBUSTION ENGINEER POC GLUCOSE Routine 06/17/2020 11:05 PM COMBUSTION ENGINEER POC GLUCOSE Routine 06/17/2020 9:59 PM COMBUSTION ENGINEER POC GLUCOSE Routine 06/17/2020 9:01 PM COMBUSTION ENGINEER POC GLUCOSE Routine 06/17/2020 8:06 PM COMBUSTION ENGINEER POC GLUCOSE Routine 06/17/2020 6:41 PM COMBUSTION ENGINEER POC GLUCOSE Routine 06/17/2020 5:47 PM COMBUSTION ENGINEER POC GLUCOSE Routine 06/17/2020 4:40 PM COMBUSTION ENGINEER POC GLUCOSE Routine 06/17/2020 3:36 PM COMBUSTION ENGINEER POC GLUCOSE Routine 06/17/2020 2:42 PM COMBUSTION ENGINEER POC GLUCOSE Routine 06/17/2020 1:31 PM COMBUSTION ENGINEER POC GLUCOSE Routine 06/17/2020 12:53 PM COMBUSTION ENGINEER POC GLUCOSE Routine 06/17/2020 11:30 AM COMBUSTION ENGINEER POC GLUCOSE Routine 06/17/2020 10:32 AM COMBUSTION ENGINEER POC GLUCOSE Routine 06/17/2020 9:32 AM COMBUSTION ENGINEER POC GLUCOSE Routine 06/17/2020 8:28 AM COMBUSTION ENGINEER POC GLUCOSE Routine 06/17/2020 7:28 AM COMBUSTION ENGINEER POC GLUCOSE Routine 06/17/2020 6:23 AM COMBUSTION ENGINEER POC GLUCOSE Routine 06/17/2020 5:36 AM COMBUSTION ENGINEER POC GLUCOSE Routine 06/17/2020 4:34 AM COMBUSTION ENGINEER CBC WITH DIFFERENTIAL Routine 06/17/2020 3:39 AM COMBUSTION ENGINEER TRIGLYCERIDE Routine 06/17/2020 3:39 AM COMBUSTION ENGINEER COMPREHENSIVE METABOLIC PANEL Routine 06/17/2020 3:39 AM COMBUSTION ENGINEER POC GLUCOSE Routine 06/17/2020 3:29 AM COMBUSTION ENGINEER POC GLUCOSE Routine 06/17/2020 2:31 AM COMBUSTION ENGINEER POC GLUCOSE Routine 06/17/2020 1:28 AM COMBUSTION ENGINEER POC GLUCOSE Routine 06/17/2020 12:58 AM COMBUSTION ENGINEER POC GLUCOSE Routine 06/17/2020 12:01 AM COMBUSTION ENGINEER POC GLUCOSE Routine 06/16/2020 11:02 PM COMBUSTION ENGINEER POC GLUCOSE Routine 06/16/2020 10:02 PM COMBUSTION ENGINEER POC GLUCOSE Routine 06/16/2020 8:54 PM COMBUSTION ENGINEER POC GLUCOSE Routine 06/16/2020 8:06 PM COMBUSTION ENGINEER POC GLUCOSE Routine 06/16/2020 6:57 PM COMBUSTION ENGINEER POC GLUCOSE Routine 06/16/2020 6:00 PM COMBUSTION ENGINEER POC GLUCOSE Routine 06/16/2020 5:02 PM COMBUSTION ENGINEER POC GLUCOSE Routine 06/16/2020 4:03 PM COMBUSTION ENGINEER POC GLUCOSE Routine 06/16/2020 3:03 PM COMBUSTION ENGINEER POC GLUCOSE Routine 06/16/2020 2:02 PM COMBUSTION ENGINEER POC GLUCOSE Routine 06/16/2020 1:05 PM COMBUSTION ENGINEER POC GLUCOSE Routine 06/16/2020 12:02 PM COMBUSTION ENGINEER POC GLUCOSE Routine 06/16/2020 10:58 AM COMBUSTION ENGINEER POC GLUCOSE Routine 06/16/2020 10:02 AM COMBUSTION ENGINEER POC GLUCOSE Routine 06/16/2020 8:58 AM COMBUSTION ENGINEER POC GLUCOSE Routine 06/16/2020 7:58 AM COMBUSTION ENGINEER POC GLUCOSE Routine 06/16/2020 6:45 AM COMBUSTION ENGINEER CBC WITH DIFFERENTIAL Routine 06/16/2020 6:42 AM COMBUSTION ENGINEER TRIGLYCERIDE Routine 06/16/2020 6:42 AM COMBUSTION ENGINEER LIPASE Routine 06/16/2020 6:42 AM COMBUSTION ENGINEER COMPREHENSIVE METABOLIC PANEL Routine 06/16/2020 6:42 AM COMBUSTION ENGINEER URINALYSIS W/REFLEX MICROSCOPIC Stat 06/16/2020 1:55 AM COMBUSTION ENGINEER CBC WITH DIFFERENTIAL Stat 06/15/2020 11:57 PM COMBUSTION ENGINEER TRIGLYCERIDE Stat 06/15/2020 11:57 PM COMBUSTION ENGINEER LIPASE Stat 06/15/2020 11:57 PM COMBUSTION ENGINEER COMPREHENSIVE METABOLIC PANEL Stat 06/15/2020 11:57 PM COMBUSTION ENGINEER documented in this encounter Results * (ABNORMAL) POC GLUCOSE (06/18/2020 8:36 AM COMBUSTION ENGINEER) GLUCOSE POC 146(H) 74 - 99 mg/dL 06/18/2020 8:36 AM COMBUSTION ENGINEER [facility] LABORATORY SERVICES [facility] COMMENT, GLU POC Notified RN/MD 06/18/2020 8:36 AM COMBUSTION ENGINEER [facility] LABORATORY [facility] [employer] NAME POC ARLENE ARGUELLO 06/18/2020 8:36 AM COMBUSTION ENGINEER [facility] LABORATORY [facility] Blood, whole 06/18/2020 8:36 AM COMBUSTION ENGINEER 06/18/2020 8:52 AM COMBUSTION ENGINEER Shira Cavanaugh MD POINT OF CARE TESTIN G [facility] [employer] [facility] CLIA# [id number] [address] [place] [address] * (ABNORMAL) POC GLUCOSE (06/18/2020 5:59 AM COMBUSTION ENGINEER) GLUCOSE POC 106(H) 74 - 99 mg/dL 06/18/2020 5:59 AM COMBUSTION ENGINEER [facility] LABORATORY [facility] COMMENT, GLU POC Notified RN/MD 06/18/2020 5:59 AM COMBUSTION ENGINEER [facility] LABORATORY [facility] [employer] NAME POC SOY MCKEON 06/18/2020 5:59 AM COMBUSTION ENGINEER [facility] LABORATORY [facility] Blood, whole 06/18/2020 5:59 AM COMBUSTION ENGINEER 06/18/2020 6:05 AM COMBUSTION ENGINEER Shira Cavanaugh MD POINT OF CARE TESTIN G Performing Organization Address [facility] Co de Phone Number [facility] [employer] [facility] [id number] [address] [place] [address] * (ABNORMAL) TRIGLYCERIDE (06/18/2020 5:08 AM COMBUSTION ENGINEER) TRIGLYCERIDE 490(H) <150 mg/dL 06/18/2020 5:50 AM COMBUSTION ENGINEER [facility] [employer] [facility] Blood Venipuncture / Unknown 06/18/2020 5:08 AM COMBUSTION ENGINEER 06/18/2020 5:13 AM COMBUSTION ENGINEER Narrative [facility] [employer] [facility] - 06/18/2020 5:50 AM COMBUSTION ENGINEER TRIGLYCERIDES ? mg/dL Normal ?< 150 Borderline High ?150 - 199 High ? 200 - 499 Very High ? >= 500 Based on AHA/NCEP Guidelines. Mc Stinson MD CHEMISTRY ORDERABLES Performing Organization Address [facility] Co de Phone Number [facility] [employer] [facility]# [id number] [address] [place] [address] * POC GLUCOSE (06/18/2020 5:01 AM COMBUSTION ENGINEER) GLUCOSE POC 98 74 - 99 mg/dL 06/18/2020 5:01 AM COMBUSTION ENGINEER [facility] LABORATORY SERVICES [facility] [employer] NAME POC ALEKSANDAR TOVAR 06/18/2020 5:01 AM [facility] [employer] LABORATORY SERVICES - [facility] Blood, whole 06/18/2020 5:01 AM COMBUSTION ENGINEER 06/18/2020 5:26 AM COMBUSTION ENGINEER Shira Cavanaugh MD POINT OF CARE TESTIN Maggie [facility] [id number] [address] [place] [address] * (ABNORMAL) POC GLUCOSE (06/18/2020 4:02 AM COMBUSTION ENGINEER) GLUCOSE POC 117(H) 74 - 99 mg/dL 06/18/2020 4:02 AM COMBUSTION ENGINEER Fixed - Parking Tickets LABORATORY SERVICES - [facility] COMMENT, GLU POC Notified RN/MD 06/18/2020 4:02 AM COMBUSTION ENGINEER [facility] - [facility] [employer] NAME POC SOY MCKEON 06/18/2020 4:02 AM COMBUSTION ENGINEER Fixed - Parking Tickets LABORATORY SERVICES - [facility] Blood, whole 06/18/2020 4:02 AM COMBUSTION ENGINEER 06/18/2020 4:10 AM COMBUSTION ENGINEER Shira Cavanaugh MD POINT OF CARE TESTIN Maggie [facility] LABORATORY SERVICES [facility]# [id number] [address] [place] [address] * (ABNORMAL) POC GLUCOSE (06/18/2020 2:50 AM COMBUSTION ENGINEER) GLUCOSE POC 111(H) 74 - 99 mg/dL 06/18/2020 2:50 AM COMBUSTION ENGINEER [facility] LABORATORY SERVICES [facility] [employer] NAME POC ALEKSANDAR TOVAR 06/18/2020 2:50 AM COMBUSTION ENGINEER [facility] LABORATORY SERVICES [facility] Blood, whole 06/18/2020 2:50 AM COMBUSTION ENGINEER 06/18/2020 2:58 AM COMBUSTION ENGINEER Shira Cavanaugh MD POINT OF CARE TESTIN G Performing Organization Address [facility]/ZIP Co de Phone Number [facility] [employer] [facility]# [id number] [address] [place] [address] * POC GLUCOSE (06/18/2020 2:09 AM COMBUSTION ENGINEER) GLUCOSE POC 84 74 - 99 mg/dL 06/18/2020 2:09 AM COMBUSTION ENGINEER [facility] LABORATORY [facility] COMMENT, GLU POC Notified RN/MD 06/18/2020 2:09 AM COMBUSTION ENGINEER [facility] LABORATORY [facility] [employer] NAME POC ALEKSANDAR TOVAR 06/18/2020 2:09 AM COMBUSTION ENGINEER [facility] LABORATORY SERVICES [facility] Blood, whole 06/18/2020 2:09 AM COMBUSTION ENGINEER 06/18/2020 2:22 AM COMBUSTION ENGINEER Shira Cavanaugh MD POINT OF CARE TESTIN G Performing Organization Address [facility] Co de Phone Number [facility] [employer] [facility] CLIA# [id number] [address] [place] [address] * POC GLUCOSE (06/18/2020 1:14 AM COMBUSTION ENGINEER) GLUCOSE POC 95 74 - 99 mg/dL 06/18/2020 1:14 AM COMBUSTION ENGINEER [facility] LABORATORY [facility] [employer] NAME POC ALEKSANDAR TOVAR 06/18/2020 1:14 AM COMBUSTION ENGINEER [facility] Blood, whole 06/18/2020 1:14 AM COMBUSTION ENGINEER 06/18/2020 1:24 AM COMBUSTION ENGINEER Shira Cavanaugh MD POINT OF CARE TESTJERONIMO Maggie Performing Organization Address City/[facility]/ZIP Co de Phone Number [facility] [employer] [facility]# [id number] [address] [place] [address] * (ABNORMAL) POC GLUCOSE (06/18/2020 12:04 AM COMBUSTION ENGINEER) GLUCOSE POC 114(H) 74 - 99 mg/dL 06/18/2020 12:04 AM COMBUSTION ENGINEER [facility] LABORATORY [facility] [employer] NAME POC ALEKSANDAR TOVAR 06/18/2020 12:04 AM COMBUSTION ENGINEER [facility] LABORATORY [facility] Blood, whole 06/18/2020 12:0 4 AM COMBUSTION ENGINEER 06/18/2020 12:40 AM COMBUSTION ENGINEER Shira Cavanaugh MD POINT OF CARE TESTJERONIMO Maggie Performing Organization Address [facility]/ZIP Co de Phone Number [facility] LABORATORY [facility]# [id number] [address] [place] [address] * (ABNORMAL) POC GLUCOSE (06/17/2020 11:05 PM COMBUSTION ENGINEER) GLUCOSE POC 136(H) 74 - 99 mg/dL 06/17/2020 11:05 PM COMBUSTION ENGINEER [facility] LABORATORY [facility] [employer] NAME POC TAMIKO LASSITER 06/17/2020 11:05 PM COMBUSTION ENGINEER [facility] Blood, whole 06/17/2020 11:0 5 PM COMBUSTION ENGINEER 06/17/2020 11:13 PM COMBUSTION ENGINEER Shira Cavanaugh MD POINT OF CARE TESTIN Maggie Performing Organization Address City/[facility]/ZIP Co de Phone Number [facility] [employer] [facility]# [id number] [address] [place] [address] * (ABNORMAL) POC GLUCOSE (06/17/2020 9:59 PM COMBUSTION ENGINEER) GLUCOSE POC 120(H) 74 - 99 mg/dL 06/17/2020 9:59 PM COMBUSTION ENGINEER [facility] - [facility] COMMENT, GLU POC Notified RN/MD 06/17/2020 9:59 PM COMBUSTION ENGINEER [facility] - [facility] [employer] NAME POC SOY MCKEON 06/17/2020 9:59 PM COMBUSTION ENGINEER [facility] LABORATORY SERVICES - [facility] Blood, whole 06/17/2020 9:59 PM COMBUSTION ENGINEER 06/17/2020 10:06 PM COMBUSTION ENGINEER Shira Cavanaugh MD POINT OF CARE TESTIN G Performing Organization Address [facility]/ZIP Co de Phone Number [facility] LABORATORY SERVICES [facility] CLIA# [id number] [address] [place] [address] * (ABNORMAL) POC GLUCOSE (06/17/2020 9:01 PM COMBUSTION ENGINEER) GLUCOSE POC 185(H) 74 - 99 mg/dL 06/17/2020 9:01 PM COMBUSTION ENGINEER [facility] LAB[facility] SERVICES - [facility] [employer] NAME POC TAMIKO LASSITER 06/17/2020 9:01 PM COMBUSTION ENGINEER Fixed - Parking Tickets LABORATORY SERVICES - [facility] Blood, whole 06/17/2020 9:01 PM COMBUSTION ENGINEER 06/17/2020 9:10 PM COMBUSTION ENGINEER Shira Cavanaugh MD POINT OF CARE TESTJERONIMO Serrano Performing Organization Address [facility]/ZIP Co de Phone Number [facility] LABORATORY [facility] CLIA# [id number] [address] [place] [address] * (ABNORMAL) POC GLUCOSE (06/17/2020 8:06 PM COMBUSTION ENGINEER) GLUCOSE POC 192(H) 74 - 99 mg/dL 06/17/2020 8:06 PM COMBUSTION ENGINEER [facility] - [facility] [employer] NAME POC TAMIKO LASSITER 06/17/2020 8:06 PM COMBUSTION ENGINEER Fixed - Parking Tickets LABORATORY SERVICES - [facility] Blood, whole 06/17/2020 8:06 PM COMBUSTION ENGINEER 06/17/2020 8:15 PM COMBUSTION ENGINEER Shira Cavanaugh MD POINT OF CARE TESTIN Maggie [facility] [employer] [facility]# [id number] [address] [place] [address] * (ABNORMAL) POC GLUCOSE (06/17/2020 6:41 PM COMBUSTION ENGINEER) GLUCOSE POC 235(H) 74 - 99 mg/dL 06/17/2020 6:41 PM COMBUSTION ENGINEER [facility] LABORATORY SERVICES [facility] [employer] NAME POC RADHA SANDOVAL 06/17/2020 6:41 PM COMBUSTION ENGINEER [facility] SERVICES [facility] Blood, whole 06/17/2020 6:41 PM COMBUSTION ENGINEER 06/17/2020 6:47 PM COMBUSTION ENGINEER Shira Cavanaugh MD POINT OF CARE TESTIN Maggie Performing Organization Address [facility]/ZIP Co de Phone Number [facility] [employer] [facility]# [id number] [address] [place] [address] * (ABNORMAL) POC GLUCOSE (06/17/2020 5:47 PM COMBUSTION ENGINEER) GLUCOSE POC 204(H) 74 - 99 mg/dL 06/17/2020 5:47 PM COMBUSTION ENGINEER [facility] LABORATORY [facility] [employer] NAME POC ROMAN HENSLEY 06/17/2020 5:47 PM COMBUSTION ENGINEER [facility] LAB[facility] SERVICES [facility] Blood, whole 06/17/2020 5:47 PM COMBUSTION ENGINEER 06/17/2020 6:02 PM COMBUSTION ENGINEER Shira Cavanaugh MD POINT OF CARE TESTIN G Performing Organization Address City/[facility]/ZIP Co de Phone Number [facility] [employer] [facility]# [id number] [address] [place] [address] * (ABNORMAL) POC GLUCOSE (06/17/2020 4:40 PM COMBUSTION ENGINEER) GLUCOSE POC 182(H) 74 - 99 mg/dL 06/17/2020 4:40 PM COMBUSTION ENGINEER [facility] LABORATORY [facility] [employer] NAME RADHA QUAN 06/17/2020 4:40 PM COMBUSTION ENGINEER [facility] LABORATORY [facility] Blood, whole 06/17/2020 4:40 PM COMBUSTION ENGINEER 06/17/2020 4:48 PM COMBUSTION ENGINEER Shira Cavanaugh MD POINT OF CARE TESTIN Maggie Performing Organization Address [facility]/ZIP Co de Phone Number [facility] [employer] [facility]# [id number] [address] [place] [address] * (ABNORMAL) POC GLUCOSE (06/17/2020 3:36 PM COMBUSTION ENGINEER) GLUCOSE POC 114(H) 74 - 99 mg/dL 06/17/2020 3:36 PM COMBUSTION ENGINEER [facility] LABORATORY [facility] [employer] NAME RADHA QUAN 06/17/2020 3:36 PM COMBUSTION ENGINEER [facility] LAB[facility]AT[facility] SERVICES [facility] Blood, whole 06/17/2020 3:36 PM COMBUSTION ENGINEER 06/17/2020 3:45 PM COMBUSTION ENGINEER Shira Cavanaugh MD POINT OF CARE TESTJERONIMO Serrano Performing Organization Address [facility] Co de Phone Number [facility] [employer] [facility] CLNC# [id number] [address] [place] [address] * (ABNORMAL) POC GLUCOSE (06/17/2020 2:42 PM COMBUSTION ENGINEER) GLUCOSE POC 117(H) 74 - 99 mg/dL 06/17/2020 2:42 PM COMBUSTION ENGINEER [facility] LABORATORY [facility] [employer] NAME RADHA QUAN 06/17/2020 2:42 PM COMBUSTION ENGINEER [facility] Blood, whole 06/17/2020 2:42 PM COMBUSTION ENGINEER 06/17/2020 2:50 PM COMBUSTION ENGINEER Shira Cavanaugh MD POINT OF CARE TESTIN Maggie [facility] [id number] [address] [place] [address] * (ABNORMAL) POC GLUCOSE (06/17/2020 1:31 PM COMBUSTION ENGINEER) GLUCOSE POC 131(H) 74 - 99 mg/dL 06/17/2020 1:31 PM COMBUSTION ENGINEER [facility] [employer] NAME ROMAN NAGY 06/17/2020 1:31 PM COMBUSTION ENGINEER [facility] LABORAT[facility] SERVICES [facility] Blood, whole 06/17/2020 1:31 PM COMBUSTION ENGINEER 06/17/2020 1:46 PM COMBUSTION ENGINEER Shira Cavanaugh MD POINT OF CARE TESTIN Maggie Performing Organization Address [facility]/ZIP Co de Phone Number [facility] LABORATORY [facility] CLIA# [id number] [address] [place] [address] * (ABNORMAL) POC GLUCOSE (06/17/2020 12:53 PM COMBUSTION ENGINEER) GLUCOSE POC 170(H) 74 - 99 mg/dL 06/17/2020 12:53 PM COMBUSTION ENGINEER [facility] [employer] NAME ROMAN NAGY 06/17/2020 12:53 PM COMBUSTION ENGINEER [facility] Blood, whole 06/17/2020 12:5 3 PM COMBUSTION ENGINEER 06/17/2020 1:26 PM COMBUSTION ENGINEER Shira Cavanaugh MD POINT OF CARE TESTIN Maggie Performing Organization Address City/[facility]/ZIP Co de Phone Number [facility] [employer] [facility] CLIA# [id number] [address] [place] [address] * (ABNORMAL) POC GLUCOSE (06/17/2020 11:30 AM COMBUSTION ENGINEER) GLUCOSE POC 159(H) 74 - 99 mg/dL 06/17/2020 11:30 AM COMBUSTION ENGINEER [facility] SERVICES [facility] [employer] NAME POC RADHA SANDOVAL 06/17/2020 11:30 AM COMBUSTION ENGINEER Fixed - Parking Tickets LABORATORY SERVICES [facility] Blood, whole 06/17/2020 11:3 0 AM COMBUSTION ENGINEER 06/17/2020 11:38 AM COMBUSTION ENGINEER Shira Cavanaugh MD POINT OF CARE TESTIN G Performing Organization Address City/[facility]/ZIP Co de Phone Number [facility] LABORATORY [facility] CLIA# [id number] [address] [place] [address] * (ABNORMAL) POC GLUCOSE (06/17/2020 10:32 AM COMBUSTION ENGINEER) GLUCOSE POC 107(H) 74 - 99 mg/dL 06/17/2020 10:32 AM COMBUSTION ENGINEER [facility] SERVICES [facility] [employer] NAME SOFIA CHAPIN 06/17/2020 10:32 AM COMBUSTION ENGINEER Fixed - Parking Tickets LABORATORY SERVICES [facility] Blood, whole 06/17/2020 10:3 2 AM COMBUSTION ENGINEER 06/17/2020 10:59 AM COMBUSTION ENGINEER Shira Cavanaugh MD POINT OF CARE TESTIN G Performing Organization Address [facility] Co de Phone Number [facility] [employer] [facility] CLIA# [id number] [address] [place] [address] * POC GLUCOSE (06/17/2020 9:32 AM COMBUSTION ENGINEER) GLUCOSE POC 93 74 - 99 mg/dL 06/17/2020 9:32 AM COMBUSTION ENGINEER [facility] LAB[facility] SERVICES [facility] [employer] NAME POC RADHA SANDOVAL 06/17/2020 9:32 AM COMBUSTION ENGINEER Fixed - Parking Tickets LABORATORY SERVICES [facility] Blood, whole 06/17/2020 9:32 AM COMBUSTION ENGINEER 06/17/2020 9:41 AM COMBUSTION ENGINEER Shira Cavanaugh MD POINT OF CARE TESTJERONIMO Serrano Performing Organization Address City/[facility]/ZIP Co de Phone Number [facility] LABORATORY [facility] CLIA# [id number] [address] [place] [address] * (ABNORMAL) POC GLUCOSE (06/17/2020 8:28 AM COMBUSTION ENGINEER) GLUCOSE POC 105(H) 74 - 99 mg/dL 06/17/2020 8:28 AM COMBUSTION ENGINEER [facility] LABORATORY SERVICES - [facility] [employer] NAME RADHA QUAN 06/17/2020 8:28 AM COMBUSTION ENGINEER Fixed - Parking Tickets LABORATORY SERVICES [facility] Blood, whole 06/17/2020 8:28 AM COMBUSTION ENGINEER 06/17/2020 8:37 AM COMBUSTION ENGINEER Shira Cavanaugh MD POINT OF CARE TESTJERONIMO Serrano [facility] LABORATORY [facility] CLIA# [id number] [address] [place] [address] * (ABNORMAL) POC GLUCOSE (06/17/2020 7:28 AM COMBUSTION ENGINEER) GLUCOSE POC 103(H) 74 - 99 mg/dL 06/17/2020 7:28 AM COMBUSTION ENGINEER [facility] LABORATORY [facility] - [facility] [employer] NAME RADHA QUAN 06/17/2020 7:28 AM COMBUSTION ENGINEER [facility] LAB[facility] SERVICES [facility] Blood, whole 06/17/2020 7:28 AM COMBUSTION ENGINEER 06/17/2020 7:37 AM COMBUSTION ENGINEER Shira Cavanaugh MD POINT OF CARE TESTJERONIMO Serrano [facility] LABORATORY [facility] CLIA# [id number] [address] [place] [address] * (ABNORMAL) POC GLUCOSE (06/17/2020 6:23 AM COMBUSTION ENGINEER) GLUCOSE POC 112(H) 74 - 99 mg/dL 06/17/2020 6:23 AM COMBUSTION ENGINEER [facility] [employer] NAME OLLIE CROWDER JET 06/17/2020 6:23 AM COMBUSTION ENGINEER Fixed - Parking Tickets LABORATORY SERVICES [facility] Blood, whole 06/17/2020 6:23 AM COMBUSTION ENGINEER 06/17/2020 6:32 AM COMBUSTION ENGINEER Mc Stinson MD POINT OF CARE TESTIN Maggie [facility] LABORATORY SERVICES [facility] CLIA# [id number] [address] [place] [address] * (ABNORMAL) POC GLUCOSE (06/17/2020 5:36 AM COMBUSTION ENGINEER) GLUCOSE POC 124(H) 74 - 99 mg/dL 06/17/2020 5:36 AM COMBUSTION ENGINEER Fixed - Parking Tickets LABORATORY SERVICES [facility] [employer] NAME POC JET CROWDER 06/17/2020 5:36 AM COMBUSTION ENGINEER Fixed - Parking Tickets LABORATORY SERVICES [facility] Blood, whole 06/17/2020 5:36 AM COMBUSTION ENGINEER 06/17/2020 5:44 AM COMBUSTION ENGINEER Mc Stinson MD POINT OF CARE TESTIN Maggie [facility] [employer] [facility] CLIA# [id number] [address] [place] [address] * (ABNORMAL) POC GLUCOSE (06/17/2020 4:34 AM COMBUSTION ENGINEER) GLUCOSE POC 117(H) 74 - 99 mg/dL 06/17/2020 4:34 AM COMBUSTION ENGINEER Fixed - Parking Tickets LABORATORY SERVICES [facility] [employer] NAME POC XOCHILT WILLOUGHBY 06/17/2020 4:34 AM COMBUSTION ENGINEER Fixed - Parking Tickets LABORATORY SERVICES [facility] Blood, whole 06/17/2020 4:34 AM COMBUSTION ENGINEER 06/17/2020 4:42 AM COMBUSTION ENGINEER Mc Stinson MD POINT OF CARE TESTJERONIMO Serrano [facility] LABORATORY [facility] CLIA# [id number] [address] [place] [address] * (ABNORMAL) TRIGLYCERIDE (06/17/2020 3:39 AM COMBUSTION ENGINEER) Pathologist [facility] [place] TRIGLYCERIDE 650(H) <150 mg/dL 06/17/2020 4:23 AM [facility] [employer] [facility] Blood Venipuncture / Unknown 06/17/2020 3:39 AM COMBUSTION ENGINEER 06/17/2020 3:45 AM COMBUSTION ENGINEER [facility] [employer] [facility] - 06/17/2020 4:23 AM COMBUSTION ENGINEER TRIGLYCERIDES ? mg/dL Normal ?< 150 Borderline High ?150 - 199 High ? 200 - 499 Very High ? >= 500 Based on AHA/NCEP Guidelines. Mc Stinson MD CHEMISTRY ORDERABLES [facility] [employer] [facility]# [id number] [address] [place] [address] * (ABNORMAL) COMPREHENSIVE METABOLIC PANEL (06/17/2020 3:39 AM COMBUSTION ENGINEER) [facility] SODIUM 139 136 - 145 mmol/L 06/17/2020 4:23 AM [facility] [employer] [facility] POTASSIUM 3.7 3.5 - 5.0 mmol/L 06/17/2020 4:23 AM [facility] [employer] [facility] CHLORIDE 110(H) 98 - 107 mmol/L 06/17/2020 4:23 AM [facility] [employer] [facility] CO2 20(L) 22 - 29 mmol/L 06/17/2020 4:23 AM [facility] [employer] [facility] CALCIUM 7.7(L) 8.6 - 10.2 mg/dL 06/17/2020 4:23 AM [facility] [employer] [facility] BUN 4(L) 6 - 20 mg/dL 06/17/2020 4:23 AM [facility] [employer] [facility] CREATININE 0.46(L) 0.51 - 0.95 mg/dL 06/17/2020 4:23 AM COMBUSTION ENGINEER Fixed - Parking Tickets LABORATORY SERVICES - [facility] GLUCOSE 92 74 - 99 mg/dL 06/17/2020 4:23 AM [facility] Fixed - Parking Tickets LABORATORY SERVICES - . [facility] TOTAL PROTEIN 4.9(L) 6.7 - 8.6 g/dL 06/17/2020 4:23 AM [facility] Fixed - Parking Tickets LABORATORY SERVICES - [facility] ALBUMIN 3.5 3.5 - 5.2 g/dL 06/17/2020 4:23 AM [facility] Fixed - Parking Tickets LABORATORY SERVICES - . [facility] BILIRUBIN TOTAL <0.2(L) 0.3 - 1.2 mg/dL 06/17/2020 4:23 AM [facility] Fixed - Parking Tickets LABORATORY SERVICES - [facility] ALKALINE PHOSPHATASE 25(L) 35 - 104 U/L 06/17/2020 4:23 AM [facility] Fixed - Parking Tickets LABORATORY SERVICES - . [facility] AST 16 <33 U/L 06/17/2020 4:23 AM COMBUSTION ENGINEER Fixed - Parking Tickets LABORATORY SERVICES - . [facility] ALT 12 <34 U/L 06/17/2020 4:23 AM COMBUSTION ENGINEER Fixed - Parking Tickets LABORATORY SERVICES [facility] GFR >60 >=60 mL/min/1.7 3 sq meter 06/17/2020 4:23 AM COMBUSTION ENGINEER Fixed - Parking Tickets LABORATORY SERVICES [facility] Comment: eGFR has not been validated for [...] GFR, >60 >=60 mL/min/1.7 3 sq meter 06/17/2020 4:23 AM COMBUSTION ENGINEER Fixed - Parking Tickets LABORATORY SERVICES [facility] ANION GAP 9 8 - 16 mmol/L 06/17/2020 4:23 AM [facility] Fixed - Parking Tickets LABORATORY SERVICES [facility] Blood Venipuncture / Unknown 06/17/2020 3:39 AM COMBUSTION ENGINEER 06/17/2020 3:45 AM [facility] [employer] LABORATORY SERVICES - [facility] - 06/17/2020 4:23 AM COMBUSTION ENGINEER Samples containing indocyanine green cause interferences on Total and/or Direct Bilirubin and must not be measured. Mc Stinson MD CHEMISTRY ORDERABLES [facility] [employer] SERVICES - [facility] CLIA# [id number] [facility] [facility] [place] [address] * (ABNORMAL) CBC WITH DIFFERENTIAL (06/17/2020 3:39 AM COMBUSTION ENGINEER) Pathologist [facility] [place] WBC 6.9 4.0 - 9.8 K/uL 06/17/2020 4:09 AM [facility] [employer] [facility] RBC 3.92 3.90 - 4.90 M/uL 06/17/2020 4:09 AM [facility] [employer] [facility] HEMOGLOBIN 11.3(L) 11.8 - 14.8 g/dL 06/17/2020 4:09 AM [facility] [employer] [facility] HEMATOCRIT 37.3 35.5 - 44.0 % 06/17/2020 4:09 AM [facility] [employer] [facility] MCV 95.2 82.0 - 99.0 fL 06/17/2020 4:09 AM [facility] MCH 28.8 27.2 - 32.6 pg 06/17/2020 4:09 AM [facility] [employer] [facility] MCHC 30.3(L) 31.5 - 35.5 g/dL 06/17/2020 4:09 AM [facility] [employer] [facility] RDW 14.1 11.5 - 14.5 % 06/17/2020 4:09 AM [facility] [employer] [facility] RDW-STDEV 50.0(H) 37.1 - 48.7 fL 06/17/2020 4:09 AM [facility] [employer] [facility] PLATELETS 187 140 - 350 K/uL 06/17/2020 4:09 AM [facility] [employer] - [facility] MPV 9.2(L) 9.3 - 12.4 fL 06/17/2020 4:09 AM COMBUSTION ENGINEER [employer] - . [facility] NEUTROPHILS 50 % 06/17/2020 4:09 AM [facility] [employer] [facility] . [facility] LYMPHOCYTES 42 % 06/17/2020 4:09 AM [facility] - . [facility] MONOCYTES 6 % 06/17/2020 4:09 AM [facility] - . [facility] EOSINOPHILS 1 % 06/17/2020 4:09 AM [facility] - . [facility] BASOPHILS 0 % 06/17/2020 4:09 AM [facility] - . [facility] IMMATURE GRANULOCYTES 1 % 06/17/2020 4:09 AM [facility] [employer] [facility] - . [facility] Comment:IG (Immature Granulo cyte) count includes Metamyelocytes, Myelocytes, and Promyelocytes NEUTROPHIL ABSOLUTE 3.48 1.90 - 7.00 K/uL 06/17/2020 4:09 AM [facility] [employer] [facility] LYMPHOCYTE ABSOLUTE 2.92 0.70 - 4.50 K/uL 06/17/2020 4:09 AM [facility] [employer] [facility] MONOCYTE ABSOLUTE 0.39 0.10 - 1.30 K/uL 06/17/2020 4:09 AM [facility] [employer] [facility] - . [facility] EOSINOPHIL ABSOLUTE 0.06 0.00 - 0.70 K/uL 06/17/2020 4:09 AM [facility] [employer] [facility] BASOPHILS ABSOLUTE 0.03 0.00 - 0.20 K/uL 06/17/2020 4:09 AM [facility] [employer] [facility] IMMATURE GRANULOCYTES ABSOLUTE 0.04(H) 0.00 - 0.03 K/uL 06/17/2020 4:09 AM [facility] [employer] [facility] Blood Venipuncture / Unknown 06/17/2020 3:39 AM COMBUSTION ENGINEER 06/17/2020 3:45 AM COMBUSTION ENGINEER Mc Stinson MD HEMATOLOGY ORDERABLE [facility] CLIA# [id number] [address] [facility] [facility] [facility] [place] [address] * POC GLUCOSE (06/17/2020 3:29 AM COMBUSTION ENGINEER) GLUCOSE POC 90 74 - 99 mg/dL 06/17/2020 3:29 AM COMBUSTION ENGINEER [facility] - [facility] COMMENT, GLU POC Notified RN/ 06/17/2020 3:29 AM COMBUSTION ENGINEER [facility] - [facility] [place] [employer] NAME POC JET CROWDER 06/17/2020 3:29 AM COMBUSTION ENGINEER [facility] - [facility] Blood, whole 06/17/2020 3:29 AM COMBUSTION ENGINEER 06/17/2020 3:37 AM COMBUSTION ENGINEER Mc Stinson MD POINT OF CARE TESTIN G Performing Organization Address City/[facility]/ZIP Co de Phone Number [facility] LABORATORY [facility]# [id number] [address] [facility] [address] [place] [address] * (ABNORMAL) POC GLUCOSE (06/17/2020 2:31 AM COMBUSTION ENGINEER) GLUCOSE POC 111(H) 74 - 99 mg/dL 06/17/2020 2:31 AM COMBUSTION ENGINEER [facility] - [facility] [place] NAME POC JET CROWDER 06/17/2020 2:31 AM COMBUSTION ENGINEER [facility] LAB[facility] - [facility] Blood, whole 06/17/2020 2:31 AM COMBUSTION ENGINEER 06/17/2020 2:49 AM COMBUSTION ENGINEER Mc Stinson MD POINT OF CARE TESTJERONIMO Serrano [facility] LABORATORY [facility] CLIA# [id number] [address] [place] [address] * (ABNORMAL) POC GLUCOSE (06/17/2020 1:28 AM COMBUSTION ENGINEER) GLUCOSE POC 124(H) 74 - 99 mg/dL 06/17/2020 1:28 AM COMBUSTION ENGINEER [facility] LAB[facility] - [facility] COMMENT, GLU POC Notified RN/ 06/17/2020 1:28 AM COMBUSTION ENGINEER [facility] LAB[facility] SERVICES - [facility] [place] NAME POC XOCHILT WILLOUGHBY 06/17/2020 1:28 AM COMBUSTION ENGINEER [employer] LABORATORY SERVICES - [facility] Blood, whole 06/17/2020 1:28 AM COMBUSTION ENGINEER 06/17/2020 1:36 AM COMBUSTION ENGINEER Mc Stinson MD POINT OF CARE TESTIN G [facility] LABORATORY [facility] CLIA# [id number] [address] [place] [address] * (ABNORMAL) POC GLUCOSE (06/17/2020 12:58 AM COMBUSTION ENGINEER) GLUCOSE POC 143(H) 74 - 99 mg/dL 06/17/2020 12:58 AM COMBUSTION ENGINEER [employer] LABORATORY SERVICES - [facility] [place] NAME POC JET CROWDER 06/17/2020 12:58 AM COMBUSTION ENGINEER Fixed - Parking Tickets LABORATORY SERVICES [facility] Blood, whole 06/17/2020 12:5 8 AM COMBUSTION ENGINEER 06/17/2020 1:06 AM COMBUSTION ENGINEER Mc Stinson MD POINT OF CARE TESTJERONIMO Maggie Performing Organization Address [facility]/ZIP Co de Phone Number [facility] [employer] [facility] CLIA# [id number] [address] [place] [address] * (ABNORMAL) POC GLUCOSE (06/17/2020 12:01 AM COMBUSTION ENGINEER) GLUCOSE POC 222(H) 74 - 99 mg/dL 06/17/2020 12:01 AM COMBUSTION ENGINEER [facility] COMMENT, GLU POC Notified RN/MD 06/17/2020 12:01 AM COMBUSTION ENGINEER [employer] LABORATORY SERVICES - [facility] [place] [employer] NAME POC XOCHILT [place]BY 06/17/2020 12:01 AM COMBUSTION ENGINEER Fixed - Parking Tickets LABORATORY SERVICES [facility] Blood, whole 06/17/2020 12:0 1 AM COMBUSTION ENGINEER 06/17/2020 12:08 AM COMBUSTION ENGINEER Mc Stinson MD POINT OF CARE TESTIN G [facility] [employer] [id number] [address] [place] [address] * (ABNORMAL) POC GLUCOSE (06/16/2020 11:02 PM COMBUSTION ENGINEER) GLUCOSE POC 239(H) 74 - 99 mg/dL 06/16/2020 11:02 PM COMBUSTION ENGINEER [facility] LABORATORY SERVICES - [facility] COMMENT, GLU POC Notified RN/MD 06/16/2020 11:02 PM COMBUSTION ENGINEER [facility] LABORATORY SERVICES [facility] [employer] [employer] [employer] NAME POC XOCHILT [place]OUGHBY 06/16/2020 11:02 PM COMBUSTION ENGINEER [facility] LABORATORY SERVICES [facility] Blood, whole 06/16/2020 11:0 2 PM COMBUSTION ENGINEER 06/16/2020 11:16 PM COMBUSTION ENGINEER Mc Stinson MD POINT OF CARE TESTJERONIMO Serrano Performing Organization Address [facility]/ZIP Co de Phone Number [facility]ORY [id number] [address] [place] [address] * (ABNORMAL) POC GLUCOSE (06/16/2020 10:02 PM COMBUSTION ENGINEER) GLUCOSE POC 196(H) 74 - 99 mg/dL 06/16/2020 10:02 PM COMBUSTION ENGINEER [facility] LABORATORY [facility] [employer] NAME POC JET CROWDER 06/16/2020 10:02 PM COMBUSTION ENGINEER [facility] LABORATORY SERVICES [facility] Blood, whole 06/16/2020 10:0 2 PM COMBUSTION ENGINEER 06/16/2020 10:11 PM COMBUSTION ENGINEER Mc Stinson MD POINT OF CARE TESTJERONIMO Serrano Performing Organization Address City/[facility]/ZIP Co de Phone Number [facility]ORY [facility] [id number] [address] [place] [address] * (ABNORMAL) POC GLUCOSE (06/16/2020 8:54 PM COMBUSTION ENGINEER) GLUCOSE POC 164(H) 74 - 99 mg/dL 06/16/2020 8:54 PM COMBUSTION ENGINEER [employer] LABORATORY SERVICES - [facility] [place] [employer] NAME POC JET CROWDER 06/16/2020 8:54 PM COMBUSTION ENGINEER Fixed - Parking Tickets LABORATORY SERVICES - [facility] Blood, whole 06/16/2020 8:54 PM COMBUSTION ENGINEER 06/16/2020 9:06 PM COMBUSTION ENGINEER Mc Stinson MD POINT OF CARE TESTIN G Performing Organization Address [facility]/ZIP Co de Phone Number [facility] LABORATORY SERVICES [facility] CLIA# [id number] [address] [place] [address] * (ABNORMAL) POC GLUCOSE (06/16/2020 8:06 PM COMBUSTION ENGINEER) GLUCOSE POC 131(H) 74 - 99 mg/dL 06/16/2020 8:06 PM COMBUSTION ENGINEER Fixed - Parking Tickets LABORATORY SERVICES - [facility] COMMENT, GLU POC Notified CLAU/ 06/16/2020 8:06 PM COMBUSTION ENGINEER Fixed - Parking Tickets LABORATORY SERVICES - [facility] [employer] [employer] [employer] NAME POC XOCHILT WILLOUGHBY 06/16/2020 8:06 PM COMBUSTION ENGINEER Fixed - Parking Tickets LABORATORY SERVICES - [facility] Blood, whole 06/16/2020 8:06 PM COMBUSTION ENGINEER 06/16/2020 8:14 PM COMBUSTION ENGINEER Mc Stinson MD POINT OF CARE TESTJERONIMO Serrano Performing Organization Address [facility]/ZIP Co de Phone Number [facility] LABORATORY SERVICES [facility] CLIA# [id number] [address] [place] [address] * (ABNORMAL) POC GLUCOSE (06/16/2020 6:57 PM COMBUSTION ENGINEER) GLUCOSE POC 152(H) 74 - 99 mg/dL 06/16/2020 6:57 PM COMBUSTION ENGINEER Fixed - Parking Tickets LABORATORY SERVICES [facility] COMMENT, GLU POC Notified CLAU/ 06/16/2020 6:57 PM COMBUSTION ENGINEER Fixed - Parking Tickets LABORATORY SERVICES - [facility] [employer] [employer] [employer] NAME POC DAVID, SKYLER 06/16/2020 6:57 PM COMBUSTION ENGINEER [facility] LABORATORY SERVICES [facility] Blood, whole 06/16/2020 6:57 PM COMBUSTION ENGINEER 06/16/2020 7:08 PM COMBUSTION ENGINEER Mc Stinson MD POINT OF CARE TESTIN G [facility] CLIA# [id number] [address] [place] [address] * (ABNORMAL) POC GLUCOSE (06/16/2020 6:00 PM COMBUSTION ENGINEER) GLUCOSE POC 178(H) 74 - 99 mg/dL 06/16/2020 6:00 PM COMBUSTION ENGINEER [facility] LABORATORY [facility] [employer] NAME POC SKYLER WILLETT 06/16/2020 6:00 PM COMBUSTION ENGINEER [facility] LABORATORY [facility] Blood, whole 06/16/2020 6:00 PM COMBUSTION ENGINEER 06/16/2020 6:22 PM COMBUSTION ENGINEER Mc Stinson MD POINT OF CARE TESTIN Maggie [facility] [employer] [facility] CLIA# [id number] [address] [place] [address] * (ABNORMAL) POC GLUCOSE (06/16/2020 5:02 PM COMBUSTION ENGINEER) GLUCOSE POC 158(H) 74 - 99 mg/dL 06/16/2020 5:02 PM COMBUSTION ENGINEER [facility] LABORATORY [facility] [employer] NAME POC PELON (pn-BABITZ) DADA 06/16/2020 5:02 PM COMBUSTION ENGINEER [facility] LABORATORY [facility] Blood, whole 06/16/2020 5:02 PM COMBUSTION ENGINEER 06/16/2020 5:10 PM COMBUSTION ENGINEER Mc Stinson MD POINT OF CARE TESTIN Maggie [facility] LABORATORY [facility] CLIA# [id number] [address] [place] [address] * (ABNORMAL) POC GLUCOSE (06/16/2020 4:03 PM COMBUSTION ENGINEER) GLUCOSE POC 122(H) 74 - 99 mg/dL 06/16/2020 4:03 PM COMBUSTION ENGINEER [facility] COMMENT, GLU POC Notified RN/ 06/16/2020 4:03 PM COMBUSTION ENGINEER [facility] LABORATORY SERVICES - [facility] [employer] NAME POC SKYLER WILLETT 06/16/2020 4:03 PM COMBUSTION ENGINEER [facility] SERVICES [facility] Blood, whole 06/16/2020 4:03 PM COMBUSTION ENGINEER 06/16/2020 4:16 PM COMBUSTION ENGINEER Mc Stinson MD POINT OF CARE TESTJERONIMO Serrano Performing Organization Address [facility]/ZIP Co de Phone Number [facility] LABORATORY [facility] CLIA# [id number] [address] [place] [address] * (ABNORMAL) POC GLUCOSE (06/16/2020 3:03 PM COMBUSTION ENGINEER) GLUCOSE POC 149(H) 74 - 99 mg/dL 06/16/2020 3:03 PM COMBUSTION ENGINEER [facility] LABORATORY SERVICES - [facility] COMMENT, GLU POC Notified RN/ 06/16/2020 3:03 PM COMBUSTION ENGINEER [facility] LABORATORY SERVICES [facility] [employer] NAME POC SKYLER WILLETT 06/16/2020 3:03 PM COMBUSTION ENGINEER [facility] LABORATORY SERVICES [facility] Blood, whole 06/16/2020 3:03 PM COMBUSTION ENGINEER 06/16/2020 3:09 PM COMBUSTION ENGINEER Mc Stinson MD POINT OF CARE TESTIN Maggie [facility] LABORATORY [facility] CLIA# [id number] [address] [place] [address] * (ABNORMAL) POC GLUCOSE (06/16/2020 2:02 PM COMBUSTION ENGINEER) GLUCOSE POC 145(H) 74 - 99 mg/dL 06/16/2020 2:02 PM COMBUSTION ENGINEER [facility] LABORATORY SERVICES [facility] [employer] NAME POC SKYLER WILLETT 06/16/2020 2:02 PM COMBUSTION ENGINEER [facility] LABORATORY SERVICES [facility] Blood, whole 06/16/2020 2:02 PM COMBUSTION ENGINEER 06/16/2020 2:41 PM COMBUSTION ENGINEER Mc Stinson MD POINT OF CARE TESTIN G Performing Organization Address [facility]/ZIP Co de Phone Number [facility]# [id number] [address] [place] [address] * (ABNORMAL) POC GLUCOSE (06/16/2020 1:05 PM COMBUSTION ENGINEER) GLUCOSE POC 143(H) 74 - 99 mg/dL 06/16/2020 1:05 PM COMBUSTION ENGINEER [facility] LABORATORY [facility] [employer] NAME POC ROMAN HENSLEY 06/16/2020 1:05 PM COMBUSTION ENGINEER [facility] LABORATORY SERVICES [facility] Blood, whole 06/16/2020 1:05 PM COMBUSTION ENGINEER 06/16/2020 1:11 PM COMBUSTION ENGINEER Mc Stinson MD POINT OF CARE TESTJERONIMO Serrano Performing Organization Address [facility]/ZIP Co de Phone Number [facility]# [id number] [address] [place] [address] * (ABNORMAL) POC GLUCOSE (06/16/2020 12:02 PM COMBUSTION ENGINEER) GLUCOSE POC 112(H) 74 - 99 mg/dL 06/16/2020 12:02 PM COMBUSTION ENGINEER [facility] LABORATORY SERVICES [facility] COMMENT, GLU POC Notified RN/MD 06/16/2020 12:02 PM COMBUSTION ENGINEER [facility] LABORATORY SERVICES [facility] [employer] NAME POC DIMITRIOS SOFIA 06/16/2020 12:02 PM COMBUSTION ENGINEER [facility] LABORATORY SERVICES [facility] Blood, whole 06/16/2020 12:0 2 PM COMBUSTION ENGINEER 06/16/2020 12:14 PM COMBUSTION ENGINEER Mc Stinson MD POINT OF CARE TESTJERONIMO Serrano Performing Organization Address [facility]/ZIP Co de Phone Number [facility] LABORATORY [facility] CLIA# [id number] [address], [place] [address] * (ABNORMAL) POC GLUCOSE (06/16/2020 10:58 AM COMBUSTION ENGINEER) GLUCOSE POC 151(H) 74 - 99 mg/dL 06/16/2020 10:58 AM COMBUSTION ENGINEER [facility] LABORATORY SERVICES [facility] [employer] NAME POC SKYLER WILLETT 06/16/2020 10:58 AM COMBUSTION ENGINEER [facility] SERVICES [facility] Blood, whole 06/16/2020 10:5 8 AM COMBUSTION ENGINEER 06/16/2020 11:13 AM COMBUSTION ENGINEER Mc Stinson MD POINT OF CARE TESTJERONIMO Serrano Performing Organization Address [facility] Co de Phone Number [facility] [employer] [facility] CLNC# [id number] [address], [place] [address] * (ABNORMAL) POC GLUCOSE (06/16/2020 10:02 AM COMBUSTION ENGINEER) GLUCOSE POC 183(H) 74 - 99 mg/dL 06/16/2020 10:02 AM COMBUSTION ENGINEER [facility] LABORATORY SERVICES [facility] COMMENT, GLU POC Notified RN/MD 06/16/2020 10:02 AM COMBUSTION ENGINEER [facility] [employer] NAME POC ROMAN HENSLEY 06/16/2020 10:02 AM COMBUSTION ENGINEER [facility] Blood, whole 06/16/2020 10:0 2 AM COMBUSTION ENGINEER 06/16/2020 10:12 AM COMBUSTION ENGINEER Mc Stinson MD POINT OF CARE TESTJERONIMO Serrano Performing Organization Address City/[facility]/ZIP Co de Phone Number [facility] LABORATORY [facility] CLIA# [id number] [address] [place] [address] * (ABNORMAL) POC GLUCOSE (06/16/2020 8:58 AM COMBUSTION ENGINEER) GLUCOSE POC 221(H) 74 - 99 mg/dL 06/16/2020 8:58 AM COMBUSTION ENGINEER [facility] - [facility] [place] NAME POC ROMAN HENSLEY 06/16/2020 8:58 AM COMBUSTION ENGINEER [facility] LABORATORY SERVICES - [facility] Blood, whole 06/16/2020 8:58 AM COMBUSTION ENGINEER 06/16/2020 9:05 AM COMBUSTION ENGINEER Mc Stinson MD POINT OF CARE TESTJERONIMO Serrano [facility] LABORATORY SERVICES [facility] CLIA# [id number] [address] [place] [address] * (ABNORMAL) POC GLUCOSE (06/16/2020 7:58 AM COMBUSTION ENGINEER) GLUCOSE POC 240(H) 74 - 99 mg/dL 06/16/2020 7:58 AM COMBUSTION ENGINEER [facility] COMMENT, GLU POC Notified RN/MD 06/16/2020 7:58 AM COMBUSTION ENGINEER [employer] LABORATORY SERVICES - [facility] [place] [place] NAME POC YESY ANDERS 06/16/2020 7:58 AM COMBUSTION ENGINEER [employer] LABORATORY SERVICES - [facility] Blood, whole 06/16/2020 7:58 AM COMBUSTION ENGINEER 06/16/2020 8:09 AM COMBUSTION ENGINEER Mc Stinson MD POINT OF CARE TESTIN Maggie [facility] LAB[facility]AT[facility] CLIA# [id number] [address] [place] [address] * (ABNORMAL) POC GLUCOSE (06/16/2020 6:45 AM COMBUSTION ENGINEER) GLUCOSE POC 267(H) 74 - 99 mg/dL 06/16/2020 6:45 AM COMBUSTION ENGINEER [employer] LABORATORY SERVICES - [facility] [place] NAME POC CHIQUITA WHEATLEY 06/16/2020 6:45 AM COMBUSTION ENGINEER Fixed - Parking Tickets LAB[facility]ATORY SERVICES [facility] Blood, whole 06/16/2020 6:45 AM COMBUSTION ENGINEER 06/16/2020 6:51 AM COMBUSTION ENGINEER Louie Calhoun DO POINT OF CARE TESTIN G Fixed - Parking Tickets LAB[facility]ATORY SERVICES - [facility] CLIA# [id number] [address] [facility] [place] [address] * (ABNORMAL) CBC WITH DIFFERENTIAL (06/16/2020 6:42 AM COMBUSTION ENGINEER) WBC 9.1 4.0 - 9.8 K/uL 06/16/2020 7:19 AM [facility] SERVICES - [facility] RBC 4.10 3.90 - 4.90 M/uL 06/16/2020 7:19 AM [employer] [facility]ATORY SERVICES [facility] HEMOGLOBIN 12.6 11.8 - 14.8 g/dL 06/16/2020 7:19 AM [facility] HEMATOCRIT 38.0 35.5 - 44.0 % 06/16/2020 7:19 AM [employer] MCV 92.7 82.0 - 99.0 fL 06/16/2020 7:19 AM [facility] MCH 30.7 27.2 - 32.6 pg 06/16/2020 7:19 AM [facility] MCHC 33.2 31.5 - 35.5 g/dL 06/16/2020 7:19 AM [employer] RDW 13.8 11.5 - 14.5 % 06/16/2020 7:19 AM [facility] RDW-STDEV 46.8 37.1 - 48.7 fL 06/16/2020 7:19 AM [facility] PLATELETS 229 140 - 350 K/uL 06/16/2020 7:19 AM [employer] MPV 9.4 9.3 - 12.4 fL 06/16/2020 7:19 AM [facility] [employer] LABORATORY SERVICES - [facility] NEUTROPHILS 65 % 06/16/2020 7:19 AM [facility] Fixed - Parking Tickets LAB[facility]ATORY SERVICES - [facility] LYMPHOCYTES 29 % 06/16/2020 7:19 AM [facility] LAB[facility]ATORY SERVICES [facility] MONOCYTES 5 % 06/16/2020 7:19 AM [facility] LAB[facility]ATORY SERVICES - [facility] EOSINOPHILS 1 % 06/16/2020 7:19 AM [facility]ATORY SERVICES [facility] BASOPHILS 0 % 06/16/2020 7:19 AM [facility] LAB[facility]ATORY SERVICES - [facility] IMMATURE GRANULOCYTES 0 % 06/16/2020 7:19 AM [facility] [employer] LABORATORY SERVICES - [facility] NEUTROPHIL ABSOLUTE 5.86 1.90 - 7.00 K/uL 06/16/2020 7:19 AM [facility] LABORATORY SERVICES - [facility] LYMPHOCYTE ABSOLUTE 2.65 0.70 - 4.50 K/uL 06/16/2020 7:19 AM [facility] LAB[facility]ATORY SERVICES [facility] MONOCYTE ABSOLUTE 0.42 0.10 - 1.30 K/uL 06/16/2020 7:19 AM [facility] LAB[facility]ATORY SERVICES - [facility] EOSINOPHIL ABSOLUTE 0.09 0.00 - 0.70 K/uL 06/16/2020 7:19 AM [facility] [employer] LAB[facility]ATORY SERVICES - [facility] BASOPHILS ABSOLUTE 0.03 0.00 - 0.20 K/uL 06/16/2020 7:19 AM [facility] [employer] LABORATORY SERVICES - [facility] IMMATURE GRANULOCYTES ABSOLUTE 0.04(H) 0.00 - 0.03 K/uL 06/16/2020 7:19 AM [facility] LABORATORY SERVICES - [facility] Blood Venipuncture / Unknown 06/16/2020 6:42 AM COMBUSTION ENGINEER 06/16/2020 6:48 AM COMBUSTION ENGINEER Mc Stinson MD HEMATOLOGY ORDERABLE S [facility] LABORATORY SERVICES - [facility] CLIA# [id number] 5 [facility] [place] [address] * (ABNORMAL) COMPREHENSIVE METABOLIC PANEL (06/16/2020 6:42 AM COMBUSTION ENGINEER) SODIUM 131(L) 136 - 145 mmol/L 06/16/2020 7:58 AM COMBUSTION ENGINEER Fixed - Parking Tickets LAB[facility]ATORY SERVICES - [facility] POTASSIUM 4.0 3.5 - 5.0 mmol/L 06/16/2020 7:58 AM [facility] Fixed - Parking Tickets LAB[facility]ATORY SERVICES - [facility] CHLORIDE 99 98 - 107 mmol/L 06/16/2020 7:58 AM [facility] Fixed - Parking Tickets LAB[facility]ATORY SERVICES - [facility] CO2 21(L) 22 - 29 mmol/L 06/16/2020 7:58 AM COMBUSTION ENGINEER Fixed - Parking Tickets [facility]ATORY SERVICES - [facility] CALCIUM 8.1(L) 8.6 - 10.2 mg/dL 06/16/2020 7:58 AM COMBUSTION ENGINEER Fixed - Parking Tickets [facility]ORY [facility] - [facility] BUN 7 6 - 20 mg/dL 06/16/2020 7:58 AM [facility] Fixed - Parking Tickets LAB[facility]ATORY SERVICES - [facility] CREATININE 0.40(L) 0.51 - 0.95 mg/dL 06/16/2020 7:58 AM [facility]ATORY SERVICES - [facility] GLUCOSE 251(H) 74 - 99 mg/dL 06/16/2020 7:58 AM COMBUSTION ENGINEER Fixed - Parking Tickets LAB[facility]ATORY SERVICES - [facility] TOTAL PROTEIN 5.9(L) 6.7 - 8.6 g/dL 06/16/2020 7:58 AM COMBUSTION ENGINEER Fixed - Parking Tickets LAB[facility]ATORY [facility] - [facility] ALBUMIN 3.6 3.5 - 5.2 g/dL 06/16/2020 7:58 AM COMBUSTION ENGINEER Fixed - Parking Tickets LAB[facility]ATORY SERVICES - [facility] BILIRUBIN TOTAL 0.2(L) 0.3 - 1.2 mg/dL 06/16/2020 7:58 AM [facility]ATORY SERVICES - [facility] ALKALINE PHOSPHATASE 51 35 - 104 U/L 06/16/2020 7:58 AM [facility] AST <5 <33 U/L 06/16/2020 7:58 AM [facility] ALT <5 <34 U/L 06/16/2020 7:58 AM [facility] GFR >60 >=60 mL/min/1.7 3 sq meter 06/16/2020 7:58 AM [facility]ORY [facility] - [facility] Comment: eGFR has not been validated [...] GFR, >60 >=60 mL/min/1.7 3 sq meter 06/16/2020 7:58 AM COMBUSTION ENGINEER [facility] [employer] [facility] ANION GAP 11 8 - 16 mmol/L 06/16/2020 7:58 AM COMBUSTION ENGINEER [facility] [employer] [facility] Blood Venipuncture / Unknown 06/16/2020 6:42 AM COMBUSTION ENGINEER 06/16/2020 6:48 AM COMBUSTION ENGINEER [facility] [employer] [facility] - 06/16/2020 7:58 AM COMBUSTION ENGINEER Samples containing indocyanine green cause interferences on Total and/or Direct Bilirubin and must not be measured. Mc Stinson MD CHEMISTRY ORDERABLES [facility]# [id number] [address] [place] [address] * (ABNORMAL) TRIGLYCERIDE (06/16/2020 6:42 AM COMBUSTION ENGINEER) TRIGLYCERIDE 2,169(H) <150 mg/dL 06/16/2020 7:51 AM COMBUSTION ENGINEER [facility] [employer] [facility] Blood Venipuncture / Unknown 06/16/2020 6:42 AM COMBUSTION ENGINEER 06/16/2020 6:48 AM COMBUSTION ENGINEER [facility] [employer] [facility] - 06/16/2020 7:51 AM COMBUSTION ENGINEER TRIGLYCERIDES ? mg/dL Normal ?< 150 Borderline High ?150 - 199 High ? 200 - 499 Very High ? >= 500 Based on AHA/NCEP Guidelines. Mc Stinson MD CHEMISTRY ORDERABLES [facility] LABORATORY [facility]# [id number] [address] [place] [address] * LIPASE (06/16/2020 6:42 AM COMBUSTION ENGINEER) LIPASE 28 13 - 60 U/L 06/16/2020 7:35 AM [facility] Fixed - Parking Tickets LABORATORY SERVICES [facility] Blood Venipuncture / Unknown 06/16/2020 6:42 AM COMBUSTION ENGINEER 06/16/2020 6:48 AM COMBUSTION ENGINEER Mc Stinson MD CHEMISTRY ORDERABLES Performing Organization Address [facility]/ZIP Co de Phone Number [facility]# [id number] [address] [place] [address] * (ABNORMAL) URINALYSIS WITH REFLEX MICROSCOPIC (06/16/2020 1:55 AM COMBUSTION ENGINEER) COLOR UA Yellow Pale to Dark Yellow 06/16/2020 4:41 AM COMBUSTION ENGINEER Fixed - Parking Tickets LABORATORY SERVICES - [facility] CLARITY UA Clear Clear 06/16/2020 4:41 AM COMBUSTION ENGINEER Fixed - Parking Tickets LABORATORY SERVICES - [facility] SPECIFIC GRAVITY UA 1.031 1.003 - 1.035 06/16/2020 4:41 AM COMBUSTION ENGINEER Fixed - Parking Tickets LABORATORY SERVICES [facility] PH UA 5.0 5.0 - 8.0 06/16/2020 4:41 AM COMBUSTION ENGINEER Fixed - Parking Tickets LABORATORY SERVICES - . [facility] LEUKOCYTE ESTERASE UA Negative Negative 06/16/2020 4:41 AM COMBUSTION ENGINEER Fixed - Parking Tickets LABORATORY SERVICES - . [facility] NITRITE UA Negative Negative 06/16/2020 4:41 AM COMBUSTION ENGINEER Fixed - Parking Tickets LABORATORY SERVICES - . [facility] PROTEIN UA Negative Negative 06/16/2020 4:41 AM COMBUSTION ENGINEER Fixed - Parking Tickets LABORATORY SERVICES - . [facility] GLUCOSE UA 3+(A) Negative 06/16/2020 4:41 AM COMBUSTION ENGINEER Fixed - Parking Tickets LABORATORY SERVICES - . [facility] KETONES UA Negative Negative 06/16/2020 4:41 AM COMBUSTION ENGINEER Fixed - Parking Tickets LABORATORY SERVICES - . [facility] UROBILINOGEN UA Normal <2.0 mg/dL 4:41 AM [facility] [employer] [facility] - [facility] BILIRUBIN UA Negative Negative 06/16/2020 4:41 AM [facility] [employer] [facility] - . [facility] BLOOD UA Negative Negative 06/16/2020 4:41 AM [facility] [employer] [facility] WBC UA 0-2 0 - 2 /hpf 06/16/2020 4:41 AM [facility] [employer] [facility] RBC UA 0-2 0 - 2 /hpf 06/16/2020 4:41 AM [facility] [employer] [facility] BACTERIA UA Negative Negative /hpf 06/16/2020 4:41 AM [facility] [employer] [facility] EPITHELIAL CELLS, URINE 0-5 0 - 5 /hpf 06/16/2020 4:41 AM [facility] [employer] [facility] Urine URINE SPECIMEN OBTAINED BY CLEAN CATCH PROCEDURE / Unknown Collection / Unknown 06/16/2020 1:55 AM COMBUSTION ENGINEER 06/16/2020 1:58 AM COMBUSTION ENGINEER Sofia Kelley MD URINE ORDERABLES [facility] [employer] [facility]# [id number] [address] [place] [address] * (ABNORMAL) TRIGLYCERIDE (06/15/2020 11:57 PM COMBUSTION ENGINEER) TRIGLYCERIDE 3,492(H) <150 mg/dL 06/16/2020 1:18 AM [facility] [employer] [facility] Blood Venipuncture / Unknown 06/15/2020 11:57 PM COMBUSTION ENGINEER 06/16/2020 12:07 AM COMBUSTION ENGINEER Narrative [employer] [facility] - 06/16/2020 1:18 AM COMBUSTION ENGINEER TRIGLYCERIDES ? mg/dL Normal ?< 150 Borderline High ?150 - 199 High ? 200 - 499 Very High ? >= 500 Based on AHA/NCEP Guidelines. Sofia Kelley MD CHEMISTRY ORDERABLE S [facility] [employer] [facility] CLIA# [id number] [address] [place] [address] * LIPASE (06/15/2020 11:57 PM COMBUSTION ENGINEER) LIPASE 36 13 - 60 U/L 06/16/2020 12:59 AM [facility] Fixed - Parking Tickets LABORATORY [facility] Blood Venipuncture / Unknown 06/15/2020 11:57 PM COMBUSTION ENGINEER 06/16/2020 12:07 AM COMBUSTION ENGINEER Sofia Kelley MD CHEMISTRY ORDERABLE S Performing Organization Address [facility]/ZIP Co de Phone Number [employer] [facility] CLIA# [id number] [address] [place] [address] * (ABNORMAL) COMPREHENSIVE METABOLIC PANEL (06/15/2020 11:57 PM COMBUSTION ENGINEER) SODIUM 131(L) 136 - 145 mmol/L 06/16/2020 4:33 AM [facility] Fixed - Parking Tickets LABORATORY [facility] POTASSIUM 4.1 3.5 - 5.0 mmol/L 06/16/2020 4:33 AM [facility] Fixed - Parking Tickets LABORATORY SERVICES [facility] Comment:Moderate hemolysis p resent. Can cause significant falsely elevated result. Redraw if indicated. CHLORIDE 97(L) 98 - 107 mmol/L 06/16/2020 4:33 AM COMBUSTION ENGINEER Fixed - Parking Tickets LABORATORY SERVICES [facility] CO2 21(L) 22 - 29 mmol/L 06/16/2020 4:33 AM COMBUSTION ENGINEER Fixed - Parking Tickets LABORATORY SERVICES [facility] CALCIUM 8.9 8.6 - 10.2 mg/dL 06/16/2020 4:33 AM [facility] Fixed - Parking Tickets LABORATORY [facility] BUN 7 6 - 20 mg/dL 06/16/2020 4:33 AM [facility] Fixed - Parking Tickets LABORATORY SERVICES [facility] CREATININE 0.39(L) 0.51 - 0.95 mg/dL 06/16/2020 4:33 AM [facility] Fixed - Parking Tickets LABORATORY [facility] GLUCOSE 272(H) 74 - 99 mg/dL 06/16/2020 4:33 AM [facility] TOTAL PROTEIN 6.7 6.7 - 8.6 g/dL 06/16/2020 4:33 AM [facility] LABORATORY [facility] ALBUMIN 4.5 3.5 - 5.2 g/dL 06/16/2020 4:33 AM [facility] LABORATORY [facility] BILIRUBIN TOTAL 0.2(L) 0.3 - 1.2 mg/dL 06/16/2020 4:33 AM [facility] ALKALINE PHOSPHATASE 63 35 - 104 U/L 06/16/2020 4:33 AM [facility] Fixed - Parking Tickets LABORATORY [facility] AST 15 <33 U/L 06/16/2020 4:33 AM [facility] Comment: Hemolysis present. ??Result may be falsely elevated. Cleared of chylomicrons. ALT 16 <34 U/L 06/16/2020 4:33 AM [facility] Comment: Hemolysis present. ??Result may be falsely elevated. Cleared of chylomicrons. GFR >60 >=60 mL/min/1.7 3 sq meter 06/16/2020 4:33 AM [facility] [employer] [facility] Comment: eGFR has not been validated [...] GFR, >60 >=60 mL/min/1.7 3 sq meter 06/16/2020 4:33 AM [facility] Fixed - Parking Tickets LABORATORY [facility] ANION GAP 13 8 - 16 mmol/L 06/16/2020 4:33 AM [facility] Fixed - Parking Tickets LABORATORY [facility] Blood Venipuncture / Unknown 06/15/2020 11:57 PM COMBUSTION ENGINEER 06/16/2020 12:07 AM [facility] [employer] LABORATORY SERVICES [facility] - 06/16/2020 4:33 AM COMBUSTION ENGINEER Samples containing indocyanine green cause interferences on Total and/or Direct Bilirubin and must not be measured. Sofia Kelley MD CHEMISTRY ORDERABLE S [facility] [employer] SERVICES - [facility] CLIA# [id number] [address] [facility] [address] [place] [address] * (ABNORMAL) CBC WITH DIFFERENTIAL (06/15/2020 11:57 PM COMBUSTION ENGINEER) WBC 11.6(H) 4.0 - 9.8 K/uL 06/16/2020 12:21 AM [facility] [employer] SERVICES - [facility] RBC 4.72 3.90 - 4.90 M/uL 06/16/2020 12:21 AM [facility] [employer] [facility] HEMOGLOBIN 14.4 11.8 - 14.8 g/dL 06/16/2020 12:21 AM [facility] [employer] SERVICES - [facility] HEMATOCRIT 41.9 35.5 - 44.0 % 06/16/2020 12:21 AM [facility] Fixed - Parking Tickets LABORATORY SERVICES - [facility] MCV 88.8 82.0 - 99.0 fL 06/16/2020 12:21 AM [facility] [employer] SERVICES - [facility] MCH 30.5 27.2 - 32.6 pg 06/16/2020 12:21 AM [facility] Fixed - Parking Tickets LABORATORY [facility] MCHC 34.4 31.5 - 35.5 g/dL 06/16/2020 12:21 AM [facility] [employer] SERVICES - [facility] RDW 13.7 11.5 - 14.5 % 06/16/2020 12:21 AM [facility] Fixed - Parking Tickets LABORATORY SERVICES - [facility] RDW-STDEV 44.7 37.1 - 48.7 fL 06/16/2020 12:21 AM [facility] [employer] SERVICES - [facility] PLATELETS 272 140 - 350 K/uL 06/16/2020 12:21 AM [facility] [employer] [facility] MPV 9.1(L) 9.3 - 12.4 fL 06/16/2020 12:21 AM [facility] [employer] SERVICES - [facility] NEUTROPHILS 69 % 06/16/2020 12:21 AM [facility] [employer] SERVICES - [facility] LYMPHOCYTES 23 % 06/16/2020 12:21 AM [facility] [employer] [facility] MONOCYTES 6 % 06/16/2020 12:21 AM [facility] [employer] [facility] EOSINOPHILS 1 % 06/16/2020 12:21 AM [facility] [employer] [facility] BASOPHILS 0 % 06/16/2020 12:21 AM [facility] [employer] [facility] IMMATURE GRANULOCYTES 1 % 06/16/2020 12:21 AM [facility] [employer] LABORATORY SERVICES [facility] Comment:IG (Immature Granulo cyte) count includes Metamyelocytes, Myelocytes, and Promyelocytes NEUTROPHIL ABSOLUTE 8.07(H) 1.90 - 7.00 K/uL 06/16/2020 12:21 AM [facility] [employer] [facility] LYMPHOCYTE ABSOLUTE 2.72 0.70 - 4.50 K/uL 06/16/2020 12:21 AM [facility] [employer] [facility] MONOCYTE ABSOLUTE 0.64 0.10 - 1.30 K/uL 06/16/2020 12:21 AM [facility] [employer] [facility] EOSINOPHIL ABSOLUTE 0.10 0.00 - 0.70 K/uL 06/16/2020 12:21 AM [facility] [employer] [facility] BASOPHILS ABSOLUTE 0.03 0.00 - 0.20 K/uL 06/16/2020 12:21 AM [facility] [employer] [facility] - . [facility] IMMATURE GRANULOCYTES ABSOLUTE 0.06(H) 0.00 - 0.03 K/uL 06/16/2020 12:21 AM [facility] [employer] [facility] Blood Venipuncture / Unknown 06/15/2020 11:57 PM COMBUSTION ENGINEER 06/16/2020 12:07 AM COMBUSTION ENGINEER Sofia Kelley MD HEMATOLOGY ORDERABL ES [facility] [employer] [id number] [place] [address] documented in this encounter Visit Diagnoses Diagnosis Acute on chronic pancreatitis- Primary Hypertriglyceridemia Pure hyperglyceridemia Recurrent pancreatitis Chronic pancreatitis Depression with anxiety Dysthymic disorder Tobacco use Tobacco use disorder Uncontrolled type 2 diabetes mellitus with hyperglycemia History of pancreatitis Personal history of other diseases of digestive system Hypertriglyceridemia Pure hyperglyceridemia History of plasmapheresis Recurrent pancreatitis Chronic pancreatitis Hyponatremia Hyposmolality and/or hyponatremia Metabolic syndrome Dysmetabolic Syndrome X documented in this encounter Administered Medications Inactive Administered Medications - up to 3 most recent administrations Medication Order MAR Action Action Date Dose Rate Site acetaminophen (TYLENOL) tablet 650 mg 650 mg, Oral, EVERY 6 HOURS PRN, Starting on Katie 06/16/20 at 0614, Until 06/18/20 at 1757, Other (See Comment), See admin instructions, Routine Given 06/17/2020 2:45 AM COMBUSTION ENGINEER 650 mg Given 06/16/2020 7:31 PM COMBUSTION ENGINEER 650 mg atorvastatin (LIPITOR) tablet 80 mg 80 mg, Oral, DAILY AT BEDTIME, First dose on Katie 06/16/20 at 2100, Until Discontinued, Routine Given 06/17/2020 8:57 PM COMBUSTION ENGINEER 80 mg Given 06/16/2020 8:19 PM COMBUSTION ENGINEER 80 mg bisacodyL (DULCOLAX) rectal suppository 10 mg 10 mg, Rectal, DAILY PRN, Starting on Katie 06/16/20 at 0614, Until 06/18/20 at 1757, Constipation, Routine calcium GLUCONATE 2,000 mg in sodium chloride (iso-osmotic) 100 mL IVPB 2,000 mg, IV, ONE TIME ONLY, 1 dose, On Katie 06/16/20 at 1230, Routine Rate Change 06/16/2020 2:18 PM COMBUSTION ENGINEER 106.45 mL/hr Rate Change 06/16/2020 2:01 PM COMBUSTION ENGINEER 100 mL/hr New Bag 06/16/2020 1:18 PM COMBUSTION ENGINEER 2,000 mg 100 mL/hr citalopram (CeleXA) tablet 40 mg 40 mg, Oral, DAILY AT BEDTIME, First dose on Katie 06/16/20 at 2100, Until Discontinued, Routine, Previous Med: citalopram (CeleXA) 40 mg tablet - Orig Sig - Take 40 mg by mouth daily at bedtime. Given 06/17/2020 8:57 PM COMBUSTION ENGINEER 40 mg Given 06/16/2020 8:19 PM COMBUSTION ENGINEER 40 mg dextrose 5% - sodium chloride 0.45% infusion IV, at 125 mL/hr, CONTINUOUS, Starting on Katie 06/16/20 at 0500, Until 06/18/20 at 1757, Routine Bag Switched 06/18/2020 7:50 AM COMBUSTION ENGINEER 125 mL/hr Bag Switched 06/18/2020 12:06 AM COMBUSTION ENGINEER 125 mL/hr New Bag 06/17/2020 3:02 PM COMBUSTION ENGINEER 125 mL/hr dextrose 5% - sodium chloride 0.9% infusion IV, at 40 mL/hr, SEE ADMIN INSTRUCTIONS, Starting on Katie 06/16/20 at 0612, Until 06/18/20 at 1757, Routine dextrose 50% (D50) syringe 12.5 Gram 12.5 Gram, IV, SEE ADMIN INSTRUCTIONS, Starting on Katie 06/16/20 at 0612, Until 06/18/20 at 1757, Routine dextrose 50% (D50) syringe 25 Gram 25 Gram, IV, SEE ADMIN INSTRUCTIONS, Starting on Katie 06/16/20 at 0612, Until 06/18/20 at 1757, Routine docusate sodium (COLACE) capsule 100 mg 100 mg, Oral, TWO TIMES DAILY PRN, Starting on Katie 06/16/20 at 0614, Until 06/18/20 at 1757, Constipation, Routine Given 06/18/2020 10:07 AM COMBUSTION ENGINEER 100 mg enoxaparin (LOVENOX) injection 40 mg 40 mg, subCUT, EVERY 24 HOURS, First dose on Katie 06/16/20 at 2100, Until Discontinued, Routine, Please adjust dose, or change to Heparin SQ if needed, based upon age, weight, renal function, etc. Thank you !, Indication: Prophylaxis of VTE, Dose to be adjusted per facility protocol? Yes Given 06/17/2020 8:59 PM COMBUSTION ENGINEER 40 mg Abdominal Tissue Given 06/16/2020 8:20 PM COMBUSTION ENGINEER 40 mg Ab dominal Tissue fenofibrate (LOFIBRA) tablet 160 mg 160 mg, Oral, DAILY, First dose on Katie 06/16/20 at 0900, Until Discontinued, Routine, Previous Med: fenofibrate (LOFIBRA) 160 mg Tablet - Orig Sig - TAKE 1 TABLET BY MOUTH EVERY DAY Patient taking differently: Take 160 mg by mouth daily. Given 06/18/2020 10:05 AM COMBUSTION ENGINEER 160 mg Given 06/17/2020 8:35 AM COMBUSTION ENGINEER 160 mg Given 06/16/2020 11:06 AM COMBUSTION ENGINEER 160 mg fentaNYL PF (SUBLIMAZE) 50 mcg/mL injection 100 mcg 100 mcg, IV, ONE TIME ONLY, 1 dose, On Katie 06/16/20 at 0130, Routine Given 06/16/2020 1:30 AM COMBUSTION ENGINEER 100 mcg fluconazole (DIFLUCAN) tablet 200 mg 200 mg, Oral, ONE TIME ONLY, 1 dose, On Katie 06/16/20 at 1730, Routine, Antibiotic Indication: Other: Enter in Comments, Antibiotic Indication: yeast infection, vaginal, Is sepsis suspected? Unlikely Given 06/16/2020 6:12 PM [employer] 200 m g glucagon HCL 1 mg/mL injection 1 mg 1 mg, IM, SEE ADMIN INSTRUCTIONS, Starting on Katie 06/16/20 at 0612, Until 06/18/20 at 1757, Routine heparin, porcine (pf) 10 unit/mL IV syringe 20 Units 20 Units, IV, ONE TIME ONLY, 1 dose, On Katie 06/16/20 at 1230, Routine, Please tube to 516, blood bank. Thank you! Given 06/16/2020 2:50 PM [employer] 20 Units heparin, porcine lock flush (pf) 100 unit/mL injection 500 Units 500 Units, IV, ONE TIME ONLY, 1 dose, On Katie 06/16/20 at 1230, Routine, Please tube to 516, blood bank. Thank you! Given 06/16/2020 2:50 PM [employer] 500 Units heparin, porcine lock flush (pf) 100 unit/mL injection 500 Units 500 Units, IV, ONE TIME ONLY, 1 dose, On Katie 06/16/20 at 1230, Routine, Please tube to 516, blood bank. Thank you! Given 06/16/2020 2:50 PM [employer] 500 Units HYDROcodone-acetaminophen (NORCO) 5-325 mg per tablet 1 Tablet 1 Tablet, Oral, EVERY 4 HOURS PRN, Starting on Katie 06/16/20 at 0614, Until 06/18/20 at 1757, Pain (See admin instructions), Routine Given 06/18/2020 10:07 AM [employer] 1 Tablet Given 06/18/2020 3:12 AM [employer] 1 Tablet Given 06/17/2020 8:57 PM [employer] 1 Tablet HYDROmorphone (DILAUDID) 2 mg/mL injection 0.5 mg 0.5 mg, IV, EVERY 3 HOURS PRN, Starting on Sat06/16/20 at 0447, Until Sat06/16/20 at 0730, Pain, Routine Given 06/16/2020 5:55 AM COMBUSTION ENGINEER 0.5 mg HYDROmorphone (DILAUDID) 2 mg/mL injection 0.5 mg 0.5 mg, IV, EVERY 1 HOUR PRN, Starting on Sat06/16/20 at 0730, Until Sat06/17/20 at 1159, Pain, Routine Given 06/17/2020 10:26 AM COMBUSTION ENGINEER 0.5 mg Given 06/17/2020 6:29 AM COMBUSTION ENGINEER 0.5 mg Given 06/17/2020 2:41 AM COMBUSTION ENGINEER 0.5 mg HYDROmorphone (DILAUDID) 2 mg/mL injection 1 mg 1 mg, IV, EVERY 2 HOURS PRN, Starting on Sat06/17/20 at 1200, Until 06/18/20 at 1757, Pain, Routine Given 06/18/2020 1:01 PM COMBUSTION ENGINEER 1 mg Given 06/18/2020 5:11 AM COMBUSTION ENGINEER 1 mg Given 06/17/2020 11:01 PM COMBUSTION ENGINEER 1 mg insulin glargine (LANTUS) injection 6 Units 6 Units, subCUT, DAILY, First dose on 06/18/20 at 0630, Until Discontinued, Routine Given 06/18/2020 10:05 AM COMBUSTION ENGINEER 6 Units Arm, Left Upper insulin lispro (HumaLOG) injection 0-4 Units 0-4 Units, subCUT, THREE TIMES DAILY WITH MEALS, First dose (after last modification) on 06/18/20 at 1200, Until Discontinued, Routine insulin regular (HUMULIN R,NOVOLIN R) 1 Units/mL in sodium chloride 0.9% infusion 0-25 Units/hr (0-25 mL/hr), IV, TITRATE, Starting on Katie 06/16/20 at 0615, Until 06/18/20 at 0620 New Bag 06/18/2020 5:04 AM COMBUSTION ENGINEER 2.2 Units/hr 2.2 mL/hr Rate Verify 06/18/2020 4:18 AM COMBUSTION ENGINEER 3.2 Units/hr 3.2 mL/hr Rate Change 06/18/2020 2:51 AM COMBUSTION ENGINEER 3.2 Units/hr 3.2 mL/hr levothyroxine (SYNTHROID) tablet 200 mcg 200 mcg, Oral, DAILY EARLY, First dose on Katie 06/16/20 at 0830, Until Discontinued, Routine, Previous Med: levothyroxine 200 mcg tablet - Orig Sig - Take 1 Tablet (200 mcg) by mouth daily. Take along with 50 mcg tab =250 mcg total daily Dose change Given 06/18/2020 6:18 AM COMBUSTION ENGINEER 200 mcg Given 06/17/2020 6:25 AM COMBUSTION ENGINEER 200 mcg Given 06/16/2020 11:06 AM COMBUSTION ENGINEER 200 mcg levothyroxine (SYNTHROID) tablet 50 mcg 50 mcg, Oral, DAILY EARLY, First dose on Sat06/16/20 at 0830, Until Discontinued, Routine, Previous Med: levothyroxine 50 mcg tablet - Orig Sig - Take 1 Tablet (50 mcg) by mouth daily in the morning. Take along with 200 mcg tab =250 mcg daily Given 06/18/2020 6:18 AM COMBUSTION ENGINEER 50 mcg Given 06/17/2020 6:25 AM COMBUSTION ENGINEER 50 mcg Given 06/16/2020 11:05 AM COMBUSTION ENGINEER 50 mcg LORazepam (ATIVAN) tablet 1 mg 1 mg, Oral, TWO TIMES DAILY PRN, Starting on Sat06/16/20 at 0726, Until 06/18/20 at 1757, Anxiety, Routine, Previous Med: LORazepam (ATIVAN) 1 mg tablet - Orig Sig - Take 1 mg by mouth 2 times daily as needed for Anxiety . Given 06/18/2020 10:07 AM COMBUSTION ENGINEER 1 mg Given 06/17/2020 10:24 AM COMBUSTION ENGINEER 1 mg magnesium hydroxide (MILK OF MAGNESIA) oral suspension 30 mL 30 mL, Oral, DAILY PRN, Starting on Sat06/16/20 at 0614, Until 06/18/20 at 1757, Constipation, Routine morphine 4 mg/mL injection 4 mg 4 mg, IV, ONE TIME ONLY, 1 dose, On Sat06/15/20 at 2315, Routine Given 06/15/2020 11:59 PM COMBUSTION ENGINEER 4 mg morphine injection 8 mg 8 mg, IV, ONE TIME ONLY, 1 dose, On Sat06/16/20 at 0045, Routine Given 06/16/2020 12:48 AM COMBUSTION ENGINEER 8 mg naloxone (NARCAN) 0.4 mg/mL injection 0.1 mg 0.1 mg, IV, SEE ADMIN INSTRUCTIONS, Starting on Katie 06/16/20 at 0614, Until 06/18/20 at 1757, Routine ondansetron (ZOFRAN ODT) tablet 4 mg 4 mg, Oral, EVERY 6 HOURS PRN, Starting on Sat06/16/20 at 0618, Until 06/18/20 at 1757, Nausea/Emesis, Routine ondansetron (ZOFRAN) 4 mg/2 mL injection 4 mg 4 mg, IV, ONE TIME ONLY, 1 dose, On Sat06/15/20 at 2315, Routine Given 06/15/2020 11:58 PM COMBUSTION ENGINEER 4 mg ondansetron (ZOFRAN) 4 mg/2 mL injection 4 mg 4 mg, IV, EVERY 6 HOURS PRN, Starting on Sat06/16/20 at 0447, Until Sat06/16/20 at 0618, Nausea/Emesis, Routine Given 06/16/2020 6:01 AM COMBUSTION ENGINEER 4 mg ondansetron (ZOFRAN) 4 mg/2 mL injection 4 mg 4 mg, IV, EVERY 6 HOURS PRN, Starting on Sat06/16/20 at 0614, Until 06/18/20 at 1757, Nausea/Emesis, Routine Given 06/16/2020 3:15 PM COMBUSTION ENGINEER 4 mg oxyCODONE (ROXICODONE) tablet 10 mg 10 mg, Oral, EVERY 6 HOURS, First dose on Sat06/17/20 at 1215, Until Discontinued, Routine Given 06/18/2020 12:2 5 PM COMBUSTION ENGINEER 10 mg Given 06/18/2020 6:00 AM COMBUSTION ENGINEER 10 mg Given 06/18/2020 12:06 AM COMBUSTION ENGINEER 10 mg pantoprazole (PROTONIX) tablet 40 mg 40 mg, Oral, TWO TIMES DAILY BEFORE BREAKFAST AND AT BEDTIME, First dose on Sat06/16/20 at 0745, Until Discontinued, Routine, Previous Med: pantoprazole (PROTONIX) 40 mg Tablet, Delayed Release (E.C.) - Orig Sig - Take 40 mg by mouth 2 times daily . , Indication: Gastroesophageal reflux disease (GERD) Given 06/18/2020 10:06 AM COMBUSTION ENGINEER 40 m g Given 06/17/2020 8:57 PM COMBUSTION ENGINEER 40 mg Given 06/17/2020 8:35 AM COMBUSTION ENGINEER 40 mg prochlorperazine maleate (COMPAZINE) tablet 10 mg 10 mg, Oral, EVERY 6 HOURS PRN, Starting on Katie 06/16/20 at 0614, Until 06/18/20 at 1757, Nausea/Emesis, Routine sodium chloride (OCEAN) 0.65 % nasal soln 2 [place], Both Nostrils, EVERY 15 MINUTES PRN, Starting on 06/18/20 at 0518, Until 06/18/20 at 1757, as needed for nasal congestion, Routine Given 06/18/2020 6:20 AM COMBUSTION ENGINEER 2 Sprays sodium chloride 0.9% bolus solution 1,000 mL 1,000 mL, IV, ONE TIME ONLY, 1 dose, On Sat06/15/20 at 2315, at 999 mL/hr, Administer over 60 Minutes, Routine New Bag 06/16/2020 12:01 AM COMBUSTION ENGINEER 1,000 mL 999 mL/hr sodium chloride 0.9% bolus solution 500 mL 500 mL, IV, ONE TIME ONLY, 1 dose, On Sat06/16/20 at 1345, at 999 mL/hr, Administer over 30 Minutes, Stat New Bag 06/16/2020 1:46 PM COMBUSTION ENGINEER 500 mL 999 mL/hr traZODone (DESYREL) tablet 100 mg 100 mg, Oral, DAILY AT BEDTIME, First dose on Sat06/16/20 at 2100, Until Discontinued, Routine, Previous Med: traZODone (DESYREL) 100 mg tablet - Orig Sig - Take 100 mg by mouth daily at bedtime . Given 06/17/2020 8:57 PM COMBUSTION ENGINEER 100 mg Given 06/16/2020 8:19 PM COMBUSTION ENGINEER 100 mg documented in this encounter Active and Recently Administered Medications Times are shown in COMBUSTION ENGINEER. Scheduled Medication Order 06/16/2020 06/17/2020 06/18/2020 atorvastatin (LIPITOR) tablet 80 mg 80 mg, Oral, DAILY AT BEDTIME, First dose on Sat06/16/20 at 2100, Until Discontinued, Routine 2018 (Given - Provider: Jet Crowder RN) 2056 (Given - Provider: Tamiko Lassiter RN) calcium GLUCONATE 2,000 mg in sodium chloride (iso-osmotic) 100 mL IVPB (COMPLETED) 2,000 mg, IV, ONE TIME ONLY, 1 dose, On Katie 06/16/20 at 1230, Routine 1318 (New Bag - Provider: Robyn Hernandez, RN)1348 (Paused - Provider: Skyler Willett, RN)1401 (Paused - Provider: Skyler Willett, RN)1401 (Rate Change - Provider: Skyler Willett, RN)1418 (Rate Change - Provider: Skyler Willett, RN)1449 (Stopped - Provider: Robyn Hernandez, CLAU) citalopram (CeleXA) tablet 40 mg 40 mg, Oral, DAILY AT BEDTIME, First dose on Katie 06/16/20 at 2100, Until Discontinued, Routine, Previous Med: citalopram (CeleXA) 40 mg tablet - Orig Sig - Take 40 mg by mouth daily at bedtime. 2018 (Given - Provider: Jet Crowder RN) 2056 (Given - Provider: Tamiko Lassiter RN) dextrose 5% - sodium chloride 0.9% infusion IV, at 40 mL/hr, SEE ADMIN INSTRUCTIONS, Starting on Katie 06/16/20 at 0612, Until 06/18/20 at 1757, Routine dextrose 50% (D50) syringe 12.5 Gram 12.5 Gram, IV, SEE ADMIN INSTRUCTIONS, Starting on Katie 06/16/20 at 0612, Until 06/18/20 at 1757, Routine dextrose 50% (D50) syringe 25 Gram 25 Gram, IV, SEE ADMIN INSTRUCTIONS, Starting on Katie 06/16/20 at 0612, Until 06/18/20 at 1757, Routine enoxaparin (LOVENOX) injection 40 mg 40 mg, subCUT, EVERY 24 HOURS, First dose on Katie 06/16/20 at 2100, Until Discontinued, Routine, Please adjust dose, or change to Heparin SQ if needed, based upon age, weight, renal function, etc. Thank you !, Indication: Prophylaxis of VTE, Dose to be adjusted per facility protocol? Yes 2019 (Given - Provider: Jet Crowder RN) 2058 (Given - Provider: Tamiko Lassiter RN) fenofibrate (LOFIBRA) tablet 160 mg 160 mg, Oral, DAILY, First dose on Katie 06/16/20 at 0900, Until Discontinued, Routine, Previous Med: fenofibrate (LOFIBRA) 160 mg Tablet - Orig Sig - TAKE 1 TABLET BY MOUTH EVERY DAY Patient taking differently: Take 160 mg by mouth daily. 1106 (Given - Provider: Skyler Willett RN) 0835 (Given - Provider: Jd Knapp, RN) 1005 (Given - Provider: Jeff Robbins, CLAU) fentaNYL PF (SUBLIMAZE) 50 mcg/mL injection 100 mcg (COMPLETED) 100 mcg, IV, ONE TIME ONLY, 1 dose, On Katie 06/16/20 at 0130, Routine 0130 (Given - Provider: Brigitte Chand, CLAU) fluconazole (DIFLUCAN) tablet 200 mg (COMPLETED) 200 mg, Oral, ONE TIME ONLY, 1 dose, On Katie 06/16/20 at 1730, Routine, Antibiotic Indication: Other: Enter in Comments, Antibiotic Indication: yeast infection, vaginal, Is sepsis suspected? Unlikely 1811 (Given - Provider: Skyler Willett RN) glucagon HCL 1 mg/mL injection 1 mg 1 mg, IM, SEE ADMIN INSTRUCTIONS, Starting on Katie 06/16/20 at 0612, Until 06/18/20 at 1757, Routine heparin, porcine (pf) 10 unit/mL IV syringe 20 Units (COMPLETED) 20 Units, IV, ONE TIME ONLY, 1 dose, On Katie 06/16/20 at 1230, Routine, Please tube to 516, blood bank. Thank you! 1450 (Given - Provider: Robyn Hernandez RN) heparin, porcine lock flush (pf) 100 unit/mL injection 500 Units (COMPLETED) 500 Units, IV, ONE TIME ONLY, 1 dose, On Katie 06/16/20 at 1230, Routine, Please tube to 516, blood bank. Thank you! 1450 (Given - Provider: Robyn Hernandez RN) heparin, porcine lock flush (pf) 100 unit/mL injection 500 Units (COMPLETED) 500 Units, IV, ONE TIME ONLY, 1 dose, On Katie 06/16/20 at 1230, Routine, Please tube to 516, blood bank. Thank you! 1450 (Given - Provider: Robyn Hernandez RN) insulin glargine (LANTUS) injection 6 Units 6 Units, subCUT, DAILY, First dose on 06/18/20 at 0630, Until Discontinued, Routine 1005 (Given - Provider: Jeff Robbins RN) insulin lispro (HumaLOG) injection 0-4 Units 0-4 Units, subCUT, THREE TIMES DAILY WITH MEALS, First dose (after last modification) on 06/18/20 at 1200, Until Discontinued, Routine 1252 (Not Given - Provider: Jeff Robbins RN - Reason: Clarify-Other (Comment) - Comment: pt to discharge and will eat lunch at home.) levothyroxine (SYNTHROID) tablet 200 mcg 200 mcg, Oral, DAILY EARLY, First dose on Katie 06/16/20 at 0830, Until Discontinued, Routine, Previous Med: levothyroxine 200 mcg tablet - Orig Sig - Take 1 Tablet (200 mcg) by mouth daily. Take along with 50 mcg tab =250 mcg total daily Dose change 1106 (Given - Provider: Skyler Willett RN) 0625 (Given - Provider: Jet Crowder RN) 0618 (Given - Provider: BLAISE Silveira) levothyroxine (SYNTHROID) tablet 50 mcg 50 mcg, Oral, DAILY EARLY, First dose on Katie 06/16/20 at 0830, Until Discontinued, Routine, Previous Med: levothyroxine 50 mcg tablet - Orig Sig - Take 1 Tablet (50 mcg) by mouth daily in the morning. Take along with 200 mcg tab =250 mcg daily 1105 (Given - Provider: Skyler Willett RN) 0625 (Given - Provider: Jet Crowder RN) 0618 (Given - Provider: BLAISE Silveira) morphine injection 8 mg (COMPLETED) 8 mg, IV, ONE TIME ONLY, 1 dose, On Katie 06/16/20 at 0045, Routine 0048 (Given - Provider: Brigitte Chand RN) naloxone (NARCAN) 0.4 mg/mL injection 0.1 mg 0.1 mg, IV, SEE ADMIN INSTRUCTIONS, Starting on Katie 06/16/20 at 0614, Until 06/18/20 at 1757, Routine oxyCODONE (ROXICODONE) tablet 10 mg 10 mg, Oral, EVERY 6 HOURS, First dose on Sat06/17/20 at 1215, Until Discontinued, Routine 1301 (Given - Provider: Roman Hensley RN)1709 (Given - Provider: Roman Hensley RN) 0006 (Given - Provider: BLAISE Silveira)0600 (Given - Provider: BLAISE Silveira)1225 (Given - Provider: Jeff Robbins, CLAU) pantoprazole (PROTONIX) tablet 40 mg 40 mg, Oral, TWO TIMES DAILY BEFORE BREAKFAST AND AT BEDTIME, First dose on Sat06/16/20 at 0745, Until Discontinued, Routine, Previous Med: pantoprazole (PROTONIX) 40 mg Tablet, Delayed Release (E.C.) - Orig Sig - Take 40 mg by mouth 2 times daily . , Indication: Gastroesophageal reflux disease (GERD) 0805 (Given - Provider: Yesy Anders RN)2018 (Given - Provider: Jet Crowder RN) 0835 (Given - Provider: Jd Knapp RN)2056 (Given - Provider: Tamiko Lassiter RN) 1006 (Given - Provider: Jeff Robbins RN) sodium chloride 0.9% bolus solution 1,000 mL (COMPLETED) 1,000 mL, IV, ONE TIME ONLY, 1 dose, On Sat06/15/20 at 2315, at 999 mL/hr, Administer over 60 Minutes, Routine 0001 (New Bag - Provider: Mala Elaine RN)0101 (Stopped - Provider: Brigitte Chand RN) sodium chloride 0.9% bolus solution 500 mL (COMPLETED) 500 mL, IV, ONE TIME ONLY, 1 dose, On Sat06/16/20 at 1345, at 999 mL/hr, Administer over 30 Minutes, Stat 1346 (New Bag - Provider: Robyn Hernandez, CLAU)1416 (Stopped - Provider: Robyn Hernandez RN) traZODone (DESYREL) tablet 100 mg 100 mg, Oral, DAILY AT BEDTIME, First dose on Sat06/16/20 at 2100, Until Discontinued, Routine, Previous Med: traZODone (DESYREL) 100 mg tablet - Orig Sig - Take 100 mg by mouth daily at bedtime . 2018 (Given - Provider: Jet Crowder RN) 2056 (Given - Provider: Tamiko Lassiter RN) Continuous Medication Order 06/16/2020 06/17/2020 06/18/2020 dextrose 5% - sodium chloride 0.45% infusion IV, at 125 mL/hr, CONTINUOUS, Starting on Katie 06/16/20 at 0500, Until 06/18/20 at 1757, Routine 0559 (New Bag - Provider: Jet Crowder RN)0602 (Rate Verify - Provider: Skyler Willett RN)0637 (Paused - Provider: Skyler Willett, RN)0641 (Restarted - Provider: Skyler Willett, RN)1406 (Rate Change - Provider: Skyler Willett, RN)1407 (Rate Change - Provider: Skyler Willett, RN)1412 (Rate Change - Provider: Skyler Willett, RN)1420 (Rate Change - Provider: Skyler Willett, RN)1514 (Paused - Provider: Skyler Willett RN)1518 (Restarted - Provider: Skyler Willett RN)1802 (Rate Verify - Provider: Skyler Willett RN)2204 (New Bag - Provider: Jet Crowder RN) 0628 (New Bag - Provider: Jet Crowder RN)1502 (New Bag - Provider: BLAISE Orlando) 0006 (Bag Switched - Provider: BLAISE Silveira)0750 (Bag Switched - Provider: BLAISE Silveira)1226 (Stopped - Provider: Jeff Robbins RN) insulin regular (HUMULIN R,NOVOLIN R) 1 Units/mL in sodium chloride 0.9% infusion (CANCELED) 0-25 Units/hr (0-25 mL/hr), IV, TITRATE, Starting on Katie 06/16/20 at 0615, Until 06/18/20 at 0620 0648 (New Bag - Provider: Jet Crowder RN - Comment: bg [phone] (Rate Verify - Provider: Skyler Willett RN)0804 (Paused - Provider: Skyler Willett RN)0804 (New Bag - Provider: Yesy Anders RN)0901 (Paused - Provider: Skyler Willett RN)0901 (New Bag - Provider: Yesy Anders, RN)1000 (Rate Change - Provider: Yesy Anders, RN)1100 (Rate Verify - Provider: Skyler Willett, RN)1209 (Paused - Provider: Skyler Willett, RN)1210 (Rate Change - Provider: Skyler Willett, RN)1210 (Rate Verify - Provider: Skyler Willett, RN)1311 (Rate Change - Provider: Yesy Anders RN)1312 (Rate Verify - Provider: Skyler Willett, RN)1606 (Rate Change - Provider: Skyler Willett, RN)1607 (Rate Verify - Provider: Skyler Willett, RN)1709 (Rate Change - Provider: Skyler Willett, RN)1710 (Rate Verify - Provider: Skyler Willett, RN)1802 (Rate Change - Provider: Skyler Willett, RN)1901 (Rate Change - Provider: Skyler Willett, RN)2008 (Rate Verify - Provider: Jet Crowder RN - Comment: bg 131 - no change in gtt rate)205 (Rate Change - Provider: Jet Crowder RN)2206 (Rate Change - Provider: Jet Crowder RN)2309 (Rate Change - Provider: Jet Crowder RN - Comment: bg 239 increase gtt by 1 u) 0009 (Rate Change - Provider: Jet Crowder RN - Comment: bg 222 increase gtt by 1 u)0130 (Rate Change - Provider: Jet Crowder RN - Comment: bs 126 - decrease gtt by 2 u)0235 (Rate Verify - Provider: Jet Crowder RN - Comment: bg 111 - no change in gtt)0332 (Rate Change - Provider: Jet Crowder RN - Comment: bg 90 - decrease gtt by 1)0438 (Rate Change - Provider: Jet Crowder RN - Comment: bg 117 - inc gtt by 0.5)0537 (Rate Verify - Provider: Jet Crowder RN - Comment: bg 124 - no change in gtt)0624 (Rate Verify - Provider: Jet Crowder RN - Comment: bg 112 - no change in gtt)0729 (Rate Change - Provider: Jet Crowder RN)0833 (Rate Verify - Provider: Jd Knapp RN - Comment: rate unchanged for glucose of 105, 2 point increase from 0730)1152 (Rate Change - Provider: BLAISE Orlando)1257 (New Bag - Provider: Roman Hensley RN - Comment: 1130 BG [id number] BG 170 Insulin rate increased to 3 ml/hr)1335 (Rate Change - Provider: Roman Hensley RN - Comment: 1230 BG [id number] BG 131insulin infusion rate decreased to 2 ml/hr)1658 (Rate Change - Provider: Roman Henlsey RN - Comment: 1530 bg [id number] BG 184insulin infusion rate increased to 3 ml/hr)1756 (Bag Switched - Provider: Roman Hensley RN - Comment: 1630 BG [id number] BG 204Insulin infusion rate increased to 5 ml/hr)1844 (Rate Change - Provider: Roman Hensley RN - Comment: 1426 [id number] 235Insulin infusion increased to 7 ml/hr)2006 (Rate Verify - Provider: Tamiko Lassiter RN)210 (Rate Verify - Provider: Tamiko Lassiter RN - Comment: bg 185)2227 (Stopped - Provider: Tamiko Lassiter RN)2305 (Rate Change - Provider: Tamiko Lassiter RN - Comment: bg 136) 0012 (Rate Verify - Provider: BLAISE Silveira)0117 (New Bag - Provider: BLAISE Silveira)0209 (Stopped - Provider: BLAISE Silveira)0251 (Rate Change - Provider: BLAISE Silveira)0418 (Rate Verify - Provider: BLAISE Silveira)0504 (New Bag - Provider: BLAISE Silveira)0619 (Stopped - Provider: BLAISE Silveira) PRN Medication Order 06/16/2020 06/17/2020 06/18/2020 acetaminophen (TYLENOL) tablet 650 mg 650 mg, Oral, EVERY 6 HOURS PRN, Starting on Katie 06/16/20 at 0614, Until 06/18/20 at 1757, Other (See Comment), See admin instructions, Routine 1931 (Given - Provider: Jet Crowder RN) 0245 (Given - Provider: Jet Crowder RN) bisacodyL (DULCOLAX) rectal suppository 10 mg 10 mg, Rectal, DAILY PRN, Starting on Katie 06/16/20 at 0614, Until 06/18/20 at 1757, Constipation, Routine docusate sodium (COLACE) capsule 100 mg 100 mg, Oral, TWO TIMES DAILY PRN, Starting on Katie 06/16/20 at 0614, Until 06/18/20 at 1757, Constipation, Routine 1007 (Given - Provider: Jeff Robbins, CLAU) HYDROcodone-acetaminop hen (NORCO) 5-325 mg per tablet 1 Tablet 1 Tablet, Oral, EVERY 4 HOURS PRN, Starting on Katie 06/16/20 at 0614, Until 06/18/20 at 1757, Pain (See admin instructions), Routine 2131 (Given - Provider: Jet Crowder RN) 0102 (Given - Provider: Jet Crowder RN)0436 (Given - Provider: Jet Crowder RN)0831 (Given - Provider: Jd Knapp RN)1422 (Given - Provider: BLAISE Orlando)2057 (Given - Provider: Tamiko Lassiter RN) 0312 (Given - Provider: BLAISE Silveira)1007 (Given - Provider: Jeff Robbins RN) HYDROmorphone (DILAUDID) 2 mg/mL injection 0.5 mg (CANCELED) 0.5 mg, IV, EVERY 3 HOURS PRN, Starting on Katie 06/16/20 at 0447, Until Katie 06/16/20 at 0730, Pain, Routine 0555 (Given - Provider: Jet Crowder RN) HYDROmorphone (DILAUDID) 2 mg/mL injection 0.5 mg (CANCELED) 0.5 mg, IV, EVERY 1 HOUR PRN, Starting on Katie 06/16/20 at 0730, Until Sat06/17/20 at 1159, Pain, Routine 0807 (Given - Provider: Yesy Anders RN)1011 (Given - Provider: Yesy Anders RN)1145 (Given - Provider: Kim Lynne RN)1511 (Given - Provider: Yesy Anders RN)1809 (Given - Provider: Skyler Willett, CLAU)192 (Given - Provider: Jet Crowder RN)2024 (Given - Provider: Jet Crowder RN)2321 (Given - Provider: Jet Crowder RN) 0241 (Given - Provider: Jet Crowder RN)0629 (Given - Provider: Jet Crowder RN)1026 (Given - Provider: Roman Hensley RN) HYDROmorphone (DILAUDID) 2 mg/mL injection 1 mg 1 mg, IV, EVERY 2 HOURS PRN, Starting on Sat06/17/20 at 1200, Until 06/18/20 at 1757, Pain, Routine 1324 (Given - Provider: Roman Hensley RN)1622 (Given - Provider: Roman Hensley RN)2301 (Given - Provider: Tamiko Lassiter RN) 0511 (Given - Provider: BLAISE Silveira)1301 (Given - Provider: Jeff Robbins RN) LORazepam (ATIVAN) tablet 1 mg 1 mg, Oral, TWO TIMES DAILY PRN, Starting on Katie 06/16/20 at 0726, Until 06/18/20 at 1757, Anxiety, Routine, Previous Med: LORazepam (ATIVAN) 1 mg tablet - Orig Sig - Take 1 mg by mouth 2 times daily as needed for Anxiety . 1024 (Given - Provider: Roman Hensley RN) 1007 (Given - Provider: Jeff Robbins RN) magnesium hydroxide (MILK OF MAGNESIA) oral suspension 30 mL 30 mL, Oral, DAILY PRN, Starting on Katie 06/16/20 at 0614, Until 06/18/20 at 1757, Constipation, Routine ondansetron (ZOFRAN ODT) tablet 4 mg 4 mg, Oral, EVERY 6 HOURS PRN, Starting on Katie 06/16/20 at 0618, Until 06/18/20 at 1757, Nausea/Emesis, Routine ondansetron (ZOFRAN) 4 mg/2 mL injection 4 mg (CANCELED) 4 mg, IV, EVERY 6 HOURS PRN, Starting on Katie 06/16/20 at 0447, Until Katie 06/16/20 at 0618, Nausea/Emesis, Routine 0601 (Given - Provider: Jet Crowder, CLAU) ondansetron (ZOFRAN) 4 mg/2 mL injection 4 mg 4 mg, IV, EVERY 6 HOURS PRN, Starting on Katie 06/16/20 at 0614, Until 06/18/20 at 1757, Nausea/Emesis, Routine 1200 (Canceled Entry - Provider: Skyler Willett, CLAU)1515 (Given - Provider: Yesy Anders, CLAU) prochlorperazine maleate (COMPAZINE) tablet 10 mg 10 mg, Oral, EVERY 6 HOURS PRN, Starting on Katie 06/16/20 at 0614, Until 06/18/20 at 1757, Nausea/Emesis, Routine sodium chloride (OCEAN) 0.65 % nasal soln 2 [place], Both Nostrils, EVERY 15 MINUTES PRN, Starting on 06/18/20 at 0518, Until 06/18/20 at 1757, as needed for nasal congestion, Routine 0620 (Given - Provider: BLAISE Silveira) documented in this encounter Care Teams Crystal Lapper Relationship Specialty Start Date End Date Guerrero Middleton PA-C PCP - General Physician Manager Intensive Care 02/13/18 documented as of this encounter
--- OUTSIDE RECORDS SUMMARY | 2024-05-03 20:41 | XMS_ITS | Encounter Summary ---
Author Organization [facility] Address [address] Orozco: Epic Prelude ADT [place] [id number] Care Team Providers Care Broth Mixer Name Role Phone Guerrero Middleton PA-C Primary Care Provide r Encounter Details Date Type Department Care Team (Latest Contact Info) Description 05/04/2020 Travel Social History Tobacco Use Types Packs/Day [...] 08/21/2018 How often do you attend [facility] or ten[facility] services? Never 08/21/2018 Do you [...] COVID-19? No / Unsure 05/04/2020 11:53 AM RAZOR GRINDER documented as of this encounter Plan of Treatment Upcoming Encounters Date Type Department Care Team (Late st Contact Info) Description 09/14/2024 3:00 PM CDT Office Visit [facility] [id number] [place] [address] Marlys Mayer MD [address] [place] [address] documented as of this encounter Visit Diagnoses Not on filedocumented in this encounter Care Teams Broth Mixer Relationship Specialty Start Date End Date Guerrero Middleton PA-C PCP - General Physician Supervisor Irrigation 10/18/18 documented as of this encounter
--- OUTSIDE RECORDS SUMMARY | 2024-05-03 20:41 | XMS_ITS | Encounter Summary ---
Author Organization [facility] Address [address] [place] [address] Care Team Providers Care Parts Room Clerk Name Role Phone Guerrero Middleton PA-C Primary Care Provide r Reason for Visit * Reason Comments Diabetes Dexcom interpretatio n Encounter Details Date Type Department Care Team (Late st Contact Info) Description 05/16/2020 Chart Note [facility] Endocrinology [address] [place] [address] Prudence Gates MD [address] [facility] [address] [employer] [place] [address] Diabetes (Dexcom interpretation) Social History Tobacco Use Types Packs/Day Years [...] any clubs o r organizations such as gnosticist groups, unions, fraternal or athletic groups, or [...] COVID-19? No / Unsure 05/04/2020 11:53 AM PHYSICAL BIOCHEMIST documented as of this encounter Progress Notes * Susan Estrada RN - 05/16/2020 4:05 PM CST Sensor uploaded and given to MD for interpretation. See scan document for recommendations. Pt informed of medication change per Dr note. Medication list up dated. Patient verbalized understanding. Instructed patient to send blood glucose log in to the office in 4 weeks for assessment. Callthe office sooner if blood glucose is < 70 or > 250 consistently. ICAL BIOCHEMIST documented in this encounter Plan of Treatment Upcoming Encounters Date Type Department Care Team (Late st Contact Info) Description 09/14/2024 3:00 PM CDT Office Visit [facility] Heart and Vascular - [place] [address] [place] [id number] Marlys Mayer MD [address] [place] [address] documented as of this encounter Visit Diagnoses Diagnosis Uncontrolled type 2 diabetes mellitus with insulin therapy- Primary Type II or unspecified type diabetes mellitus without mention of complication, uncontrolled documented in this encounter Care Teams Parts Room Clerk Relationship Specialty Start Date End Date Guerrero Middleton PA-C PCP - General Physician Front Office Coordinator 02/13/18 documented as of this encounter
--- OUTSIDE RECORDS SUMMARY | 2024-05-03 20:41 | XMS_ITS | Encounter Summary ---
Author Organization [facility] Address [address] [place] [address] Care Team Providers Care Displayer Name Role Phone Guerrero Middleton PA-C Primary Care Provide r Encounter Details Date Type Department Care Team (Latest Contact Info) Description 05/04/2020 11:00 AM FREE LANCE MODEL - 05/04/2020 11:59 PM [facility] Hospital Encounter [facility] [address] [phone] Alize Arteaga MD NO ADDRESS ON FILE [...] often do you attend chur ch or yarsani services? Never 08/21/2018 Do you belong to [...] COVID-19? No / Unsure 05/04/2020 11:53 AM FREE LANCE MODEL documented as of this encounter Last Filed Vital Signs Vital Sign Reading Time Taken Comments Blood Pressure 115/80 05/04/2020 2:15 PM FREE LANCE MODEL Pulse 89 05/04/2020 2:15 PM FREE LANCE MODEL Temperature 37.1 ??C (98.7 ??F) 05/04/2020 2:15 PM CS T Respiratory Rate 18 05/04/2020 2:15 PM FREE LANCE MODEL Oxygen Saturation - - Inhaled Oxygen Concentration - - Weight 85.7 kg (189 lb) 05/04/2020 12:06 PM FREE LANCE MODEL Height 165.1 cm (5' 5 ) 05/04/2020 12:06 PM FREE LANCE MODEL Body Mass Index 31.45 05/04/2020 12:06 PM FREE LANCE MODEL documented in this encounter Medications at Time of Discharge Medication Sig Dispensed Refills Start Date End Date traZODone (DESYREL) 100 mg tablet Take 100 mg by mouth daily at bedtime . levothyroxine 200 mcg tablet Take 200 mcg by mouth. 10/28/2018 09/26/2023 metFORMIN (GLUCOPHAGE) 500 mg tablet Take 500 mg by mouth 2 times daily. 06/05/2018 09/26/2023 levothyroxine 50 mcg tabletIndications:Acq uired hypothyroidism Take [...] a day 15 mL 1 05/04/2020 07/04/2020 Dexcom G6 Sensor Device Change sensor every 10 days. (9 sensors = 90 days) 9 Each 1 05/04/2020 05/16/2020 Dexcom G6 Transmitter Device Change transmitter every 90 days 1 Each 1 05/04/2020 05/16/2020 insulin glargine (LANTUS) 100 unit/mL injection Inject [...] Progress Notes * Sharri Juarez RN - 05/04/2020 11:00 AM CST Plasma exchange completed today using R and L chest BARD ports for draw and return. Used 5% Albuminas replacement fluid for a 1.0 volume exchange with a 100% fluid balance. Patient tolerated the procedure well. Discharge instructions given. Patient left BDS department ambulatory and in stable condition. The next procedure is scheduled for 06/01/2019 at 0900. LANCE MODEL * Alize Arteaga MD - 05/04/2020 11:00 AM CST CC: ??44??yo female undergoing prophylaxis for??hypertriglyceridemic pancreatitis in the setting of?recurrent necrotizing pancreatitis requires??plasma exchange. ?? Interval history:??Patient feeling ok physically.Patient reports that she has not been compliant with her diabetes medications due to significant increase in cost while in the donut hole . She relates that she has been taking fci, but not short term insulin. She intends to talk to Dr. Gates today regarding this. Patient is also under a lot of stress regarding her younger sister being hospitalized in the ICU at [facility] with COVID pneumonia. PMH: ??Hypertriglyceridemia (associated with prior episodes of [...] x 4 - Normal Affect ?Labs: 04/13/2020 WBC??8.4, hemoglobin??13.7, hematocrit??41.8, platelets??252 pre-procedure triglycerides 1,907 ?? A&P: 1. 44??yo female with??recurrent??hypertriglyceridemic pancreatitis [...] as 250.?? 3. Plan to see patient in four weeks for next procedure.? I have seen and examined the patient, reviewed pertinent notes and records, and remained immediately available throughout the procedure. ?? Alize Arteaga MD, PhD Oracle Applications Analyst, therapeutic apheresis service [phone] ?? Procedure??notes:?L and??R bard ports??used for procedure. ??Patient tolerated procedure well.?? LANCE MODEL documented in this encounter Plan of Treatment Upcoming Encounters Date Type Department Care Team (Late st Contact Info) Description 09/14/2024 3:00 PM CDT Office Visit [facility] [address] [place] [address] Marlys Mayer MD [address] [facility] [address] [place] [address] documented as of this encounter Procedures Procedure Name Priority Date/Time Associated Diagnosis Comments TRIGLYCERIDE Routine 05/04/2020 12:35 PM FREE LANCE MODEL Mixed hyperlipidemia TSH Routine 05/04/2020 12:35 PM FREE LANCE MODEL Acquired hypothyroidism documented in this encounter Results * (ABNORMAL) TSH (05/04/2020 12:35 PM FREE LANCE MODEL) TSH 33.30(H) 0.27 - 4.20 uIU/mL 05/04/2020 4:26 PM FREE LANCE MODEL [facility] Blood Collection / Unknown 05/04/2020 12:35 PM FREE LANCE MODEL 05/04/2020 12:41 PM FREE LANCE MODEL Prudence Gates MD CHEMISTRY ORDERAB LES [facility] CLIA# [id number] [address] [place] [address] * (ABNORMAL) TRIGLYCERIDE (05/04/2020 12:35 PM FREE LANCE MODEL) TRIGLYCERIDE 1,907(H) <150 mg/dL 05/04/2020 1:36 PM FREE LANCE MODEL [facility] Blood Collection / Unknown 05/04/2020 12:35 PM FREE LANCE MODEL 05/04/2020 12:41 PM FREE LANCE MODEL Narrative [facility] - 05/04/2020 1:36 PM FREE LANCE MODEL TRIGLYCERIDES ? mg/dL Normal ?< 150 Borderline High ?150 - 199 High ? 200 - 499 Very High ? >= 500 Based on AHA/NCEP Guidelines. Alize Arteaga MD CHEMISTRY ORDER OSVALDO [facility] [employer] [facility] CLIA# [id number] [address] [place] [address] documented in this encounter Visit Diagnoses Diagnosis Mixed hyperlipidemia- Primary Acquired hypothyroidism Unspecified hypothyroidism documented in this encounter Administered Medications Inactive Administered Medications - up to 3 most recent administrations Medication Order MAR Action Action Date Dose Rate Site calcium GLUCONATE 2,000 mg in sodium chloride 0.9% 120 mL IVPB 2,000 mg, IV, ONE TIME ONLY, 1 dose, On Sat05/04/20 at 1130, Routine New Bag 05/04/2020 12:40 PM FREE LANCE MODEL 2,000 mg 135 mL/hr heparin, porcine (pf) 10 unit/mL IV syringe 20 Units 20 Units, IV, ONE TIME ONLY, 1 dose, On Sat05/04/20 at 1130, Routine, Please tube to 516, Blood bank. Thank you! Given 05/04/2020 2:02 PM FREE LANCE MODEL 20 Units heparin, porcine lock flush (pf) 100 unit/mL injection 500 Units 500 Units, IV, ONE TIME ONLY, 1 dose, On Sat05/04/20 at 1130, Routine, Please tube to 516, Blood bank. Thank you! Given 05/04/2020 2:03 PM FREE LANCE MODEL 500 Units heparin, porcine lock flush (pf) 100 unit/mL injection 500 Units 500 Units, IV, ONE TIME ONLY, 1 dose, On Sat05/04/20 at 1130, Routine, Please tube to 516, Blood bank. Thank you! Given 05/04/2020 2:03 PM FREE LANCE MODEL 500 Units documented in this encounter Care Teams Displayer Relationship Specialty Start Date End Date Guerrero Middleton PA-C PCP - General Physician Kiln Operator Helper 02/13/18 documented as of this encounter
--- OUTSIDE RECORDS SUMMARY | 2024-05-03 20:41 | XMS_ITS | Encounter Summary ---
Author Organization [facility] Address [address] [place] [address] Care Team Providers Care Creative Services Producer Name Role Phone Guerrero Middleton PA-C Primary Care Provide r Reason for Visit * Auth/Cert Specialty Diagnoses / Procedures Referred By Conthardik t Referred To Contact [facility] [address] [place] [address] Referral ID Status Reason Start Date Expiration Date Visits Re quested Visits Authorized [id number] 1 1 Encounter Details Date Type Department Care Team (Latest Contact Info) Description 06/08/2020 9:30 AM RESIDENT SERVICES COORDINATOR - 06/08/2020 11:59 PM [facility] Hospital Encounter [facility] [address] [place] [address] Alize Arteaga MD NO ADDRESS [...] How often do you attend chur or scientologist services? Never 08/21/2018 Do you belong to any clubs o r organizations such as orthodoxy groups, unions, fraternal or athletic groups, or [...] COVID-19? No / Unsure 06/08/2020 9:32 AM RESIDENT SERVICES COORDINATOR documented as of this encounter Last Filed Vital Signs Vital Sign Reading Time Taken Comments Blood Pressure 106/65 06/08/2020 12:15 PM RESIDENT SERVICES COORDINATOR Pulse 106 06/08/2020 12:15 PM RESIDENT SERVICES COORDINATOR Temperature 36.9 ??C (98.5 ??F) 06/08/2020 12:[address] Respiratory Rate 18 06/08/2020 12:15 PM RESIDENT SERVICES COORDINATOR Oxygen Saturation - - Inhaled Oxygen Concentration [...] of this encounter Progress Notes * Rosales aTpia RN - 06/08/2020 9:30 AM CST Plasma exchange completed using the right and left chest bard ports for access and return with 5% albumin as replacement fluids for a 1.0 volume exchange. Pt access and deaccessed without issues. Pt tolerated procedure well. Occlusive dressing applied to both site. No bleeding noted at time of discharge. Pt left in stable condition with . DENT SERVICES COORDINATOR documented in this encounter Plan of Treatment Upcoming Encounters Date Type Department Care Team (Late st Contact Info) Description 09/14/2024 3:00 PM CDT Office Visit [facility] [address] [place] [address] Marlys Mayer MD [address] [place] [address] documented as of this encounter Procedures Procedure Name Priority Date/Time Associated Diagnosis Comments TRIGLYCERIDE Routine 06/08/2020 9:49 AM RESIDENT SERVICES COORDINATOR Hypertriglyceridemia TSH Routine 06/08/2020 9:49 AM RESIDENT SERVICES COORDINATOR Acquired hypothyroidism documented in this encounter Results * TSH (06/08/2020 9:49 AM RESIDENT SERVICES COORDINATOR) TSH 1.44 0.27 - 4.20 uIU/mL 06/08/2020 11:08 AM RESIDENT SERVICES COORDINATOR [facility] Blood Venipuncture / Unknown 06/08/2020 9:49 AM RESIDENT SERVICES COORDINATOR 06/08/2020 10:12 AM RESIDENT SERVICES COORDINATOR Prudence Gates MD CHEMISTRY ORDERAB LES Performing Organization Address [facility] Co de Phone Number [facility] [employer] [facility] CLIA# [id number] [address] [place] [address] * (ABNORMAL) TRIGLYCERIDE (06/08/2020 9:49 AM RESIDENT SERVICES COORDINATOR) TRIGLYCERIDE 2,208(H) <150 mg/dL 06/08/2020 11:20 AM RESIDENT SERVICES COORDINATOR [facility] [employer] [facility] Blood Venipuncture / Unknown 06/08/2020 9:49 AM RESIDENT SERVICES COORDINATOR 06/08/2020 10:12 AM RESIDENT SERVICES COORDINATOR Narrative [facility] - 06/08/2020 11:20 AM RESIDENT SERVICES COORDINATOR TRIGLYCERIDES ? mg/dL Normal ?< 150 Borderline High ?150 - 199 High ? 200 - 499 Very High ? >= 500 Based on AHA/NCEP Guidelines. Alize Arteaga MD CHEMISTRY ORDER OSVALDO Performing Organization Address [facility] Co de Phone Number [facility] CLIA# [id number] [address] [place] [address] documented in this encounter Visit Diagnoses Diagnosis Hypertriglyceridemia- Primary Pure hyperglyceridemia Acquired hypothyroidism Unspecified hypothyroidism documented in this encounter Administered Medications Inactive Administered Medications - up to 3 most recent administrations Medication Order MAR Action Action Date Dose Rate Site alteplase (CATHFLO ACTIVASE) 2 mg injection 2 mg 2 mg, Dwell, ONE TIME ONLY, 1 dose, On Sat06/08/20 at 0800, Routine, Please tube to station 516, blood bank Given 06/08/2020 10:20 AM RESIDENT SERVICES COORDINATOR 2 mg Chest, Right alteplase (CATHFLO ACTIVASE) 2 mg injection 2 mg 2 mg, Dwell, ONE TIME ONLY, 1 dose, On Sat06/08/20 at 0800, Routine, Please tube to station 516, blood bank Given 06/08/2020 10:20 AM RESIDENT SERVICES COORDINATOR 2 mg Chest, Left calcium GLUCONATE 2,000 mg in sodium chloride (iso-osmotic) 100 mL IVPB 2,000 mg, IV, INTRA-PROCEDURE ONCE, 1 dose, Starting on Sat06/08/20 at 0830, Until Sat06/08/20 at 1151, Routine New Bag 06/08/2020 10:56 AM RESIDENT SERVICES COORDINATOR 2,000 mg 80 mL/hr heparin, porcine (pf) 10 unit/mL IV syringe 20 Units 20 Units, IV, ONE TIME ONLY, 1 dose, On Sat06/08/20 at 0800, Routine, Please tube to station 516, blood bank Given 06/08/2020 12:00 PM RESIDENT SERVICES COORDINATOR 20 Units heparin, porcine lock flush (pf) 100 unit/mL injection 500 Units 500 Units, IV, ONE TIME ONLY, 1 dose, On Sat06/08/20 at 0800, Routine, Please tube to station 516, blood bank Given 06/08/2020 12:00 PM RESIDENT SERVICES COORDINATOR 500 Units heparin, porcine lock flush (pf) 100 unit/mL injection 500 Units 500 Units, IV, ONE TIME ONLY, 1 dose, On Sat06/08/20 at 0800, Routine, Please tube to station 516, blood bank Given 06/08/2020 12:00 PM RESIDENT SERVICES COORDINATOR 500 Units documented in this encounter Care Teams Creative Services Producer Relationship Specialty Start Date End Date Guerrero Middleton PA-C PCP - General Physician Intelligent Systems Engineer 02/13/18 documented as of this encounter
--- OUTSIDE RECORDS SUMMARY | 2024-05-03 20:41 | XMS_ITS | Encounter Summary ---
Author Organization [facility] Address [address]co: Epic Prelude ADT [place] [address] Care Team Providers Care Flamer After Lasting Name Role Phone Guerrero Middleton PA-C Primary Care Provide r Encounter Details Date Type Department Care Team (Latest Contact Info) Description 04/13/2020 Travel Social History Tobacco Use Types Packs/Day [...] often do you attend [facility] or latter-day services? Never 08/21/2018 Do you [...] COVID-19? No / Unsure 04/13/2020 9:27 AM QUILL COLLECTOR documented as of this encounter Plan of Treatment Upcoming Encounters Date Type Department Care Team (Late st Contact Info) Description 09/14/2024 3:00 PM CDT Office Visit [facility] Heart and Vascular - [facility] [address] [place] [address] Marlys Mayer MD [address] [place] [address] documented as of this encounter Visit Diagnoses Not on filedocumented in this encounter Care Teams Flamer After Lasting Relationship Specialty Start Date End Date Guerrero Middleton PA-C PCP - General Physician Basket Operator 02/13/18 documented as of this encounter
--- OUTSIDE RECORDS SUMMARY | 2024-05-03 20:42 | XMS_ITS | Encounter Summary ---
Author Organization [facility] Address [address] [place]rozco: Epic Prelude ADT [place] [address] Care Team Providers Care Subsurface Augmentee Operator Name Role Phone Guerrero Middleton PA-C Primary Care Provide r Encounter Details Date Type Department Care Team (Latest Contact Info) Description 09/07/2019 Travel Social History Tobacco Use Types Packs/Day [...] you attend [facility] or alevism services? Never 08/21/2018 Do you belong to [...] have Coronavirus / COVID-19? No / Unsure 09/07/2019 9:51 AM CDT documented as of this encounter Plan of Treatment Upcoming Encounters Date Type Department Care Team (Late st Contact Info) Description 09/14/2024 3:00 PM CDT Office Visit [facility] - [facility] [address] [place] [address] Marlys Mayer MD [address] [place] [address] documented as of this encounter Visit Diagnoses Not on filedocumented in this encounter Care Teams Subsurface Augmentee Operator Relationship Specialty Start Date End Date Guerrero Middleton PA-C PCP - General Physician Medical Researcher 02/13/18 documented as of this encounter
--- OUTSIDE RECORDS SUMMARY | 2024-05-03 20:42 | XMS_ITS | Encounter Summary ---
Author Organization [facility] Address [address] [place] [address] Care Team Providers Care Cement Handler Name Role Phone Guerrero Middleton PA-C Primary Care Provide r Reason for Referral * Eval and Treat (Routine) - Closed Specialty Diagnoses / Procedures Referred By Tequila t Referred To Contact Diagnoses Tobacco dependence Prudence Gates MD [address] [place] [address] Stlo Admitting [address] [place] [address] Referral ID Status Reason Start Date Expiration Date V isits Requested Visits Authorized [id number] Closed CRS To Schedule (STL) 12/14/2019 12/14/2020 1 1 Reason for Visit * Reason Comments Establish Care dm type 2 Encounter Details Date Type Department Care Team (Late st Contact Info) Description 12/14/2019 1:00 PM CDT Office Visit [facility] Endocrinology [address] [place] [address] Prudence Gates MD [address] [place] [address] Uncontrolled type 2 diabetes mellitus with insulin therapy (Primary Dx); Familial hypertriglyceridemia; Acquired hypothyroidism; Pancreatitis, recurrent; Tobacco dependence Social History Tobacco Use Types Packs/Day Years [...] have Coronavirus / COVID-19? No / Unsure 12/17/2019 9:47 AM CDT documented as of this encounter Last Filed Vital Signs Vital Sign Reading Time Taken Comments Blood Pressure 108/70 12/14/2019 12:50 PM CDT Pulse 82 12/14/2019 12:50 PM CDT Temperature - - Respiratory Rate - - Oxygen Saturation - - Inhaled Oxygen Concentration - - Weight 78.9 kg (174 lb) 12/14/2019 12:50 PM CDT Height 165.1 cm (5' 5 ) 12/14/2019 12:50 PM CDT Body Mass Index 28.96 12/14/2019 12:50 PM CDT documented in this encounter Progress Notes * Prudence Gates MD - 12/14/2019 1:20 PM CDT Casandra Jones is a 43 y.o. female with a history of hyperTG, hypothyroidism, uncontrolled T2DM presenting for evaluation. 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 Most recently in March 2019. This was evident on CT with mild fat stranding. She is being treated with plasmapheresis (with the ports she gets treatments once a month) the last time in December 04/2020) She is on disability. ?? HyperTG for at least 10 yrs. She is on fenofibrate 160 mg. She went to the [facility] and was told to stop the fish oil. She is also taking a stain She is following a low fat diet. ?? Also has hypothyroidism. She takes levothyroxine 200 mcg/d. ?? DM: Compliant with insulin with she was taking bid until she started the Rufina diet and lost 10 lbs in the last weeks. She had to discontinue the bedtime insulin. She is not requiring novolog insulin with meals. Takes metformin 500 BID. ?? Checks glucose 4x daily She brought them and we discussed them. If she has low blood sugars, she feels them in the 60's ?? Has dexcom g6 but doesn't have transmitter. ?? Needs eye exam: once a year Exercise walks 2-3 miles a day Water intake 120 oz a day Has occassional numbness and tingling in feet. ?? Review of Systems - General ROS: [...] to Visit Medication Sig Dispense Refill ??? levothyroxine 200 mcg tablet Take 1 Tablet by mouth daily without food in the morning 30 minutes before eating anything. 30 Tablet 5 ??? metFORMIN (GLUCOPHAGE) 500 mg tablet Take 2 Tablets by mouth 2 times daily with meals. 60 Tablet 0 ??? insulin aspart (NovoLOG) 100 unit/mL injection Inject [...] of left power flow port 05/11/2019 ??? LA ESOPHAGOGASTRODUODENOSCOPY TRANSORAL DIAGNOSTIC N/A 03/08/2018 ESOPHAGOGASTRODUODENOSCOPY performed by Ceasar Vega MD at [facility] GI LAB Family History Problem Relation [...] is alert oriented x3 BP 108/70 Pulse 82 Ht 5' 5 (1.651 m) Wt 78.9 kg (174 lb) BMI 28.96 kg/m?? NAD Neck is supple, there is no thyroid enlargement. There are no enlarged Lymph nodes CV: S1S2 normal in rhythm and rate Resp: CTA bilaterally Abd: soft, non tender, no organomegaly Ext: No edema Feet exam: Monofilament exam: nl Vibratory sensation on both feet nl PP:nl DTR's nl Labs Lab Results Component Value Date/Time HGBA1C 7.7 (H) 06/29/2018 08:17 PM Lab Results Component Value Date/Time CHOLTOT 162 02/01/2019 10:15 PM HDL 30 (L) 02/01/2019 10:15 PM LDLCALC 02/01/2019 10:15 PM Comment: Calculated LDL is not accurate when the Triglyceride value exceeds 400. LDLDIRECT 110 08/10/2011 07:21 AM TRIGLYCERIDE 422 (H) 12/04/2019 10:17 AM Lab Results Component Value Date/Time NA 139 05/24/2019 02:58 PM K 4.3 05/24/2019 02:58 PM CL 105 05/24/2019 02:58 PM CO2 24 05/24/2019 02:58 PM CA 8.2 (L) 05/24/2019 02:58 PM BUN 11 05/24/2019 02:58 PM CREAT 0.60 05/24/2019 02:58 PM GLUCOSE 150 (H) 05/24/2019 02:58 PM TOTALPROTEIN 6.8 05/23/2019 10:30 PM ALBUMIN 4.6 05/23/2019 10:30 PM BILITOTAL 0.2 (L) 05/23/2019 10:30 PM ALKPHOS 74 05/23/2019 10:30 PM AST 18 05/23/2019 10:30 PM ALT 17 05/23/2019 10:30 PM ANIONGAP 10 05/24/2019 02:58 PM Lab Results Component Value Date/Time [id number] 51 08/10/2011 07:21 AM [id number] 6 08/10/2011 07:21 AM [id number] 57 08/10/2011 07:21 AM Lab Results Component Value Date/Time WBC 12.2 (H) 12/04/2019 10:16 AM HGB 13.6 12/04/2019 10:16 AM HCT 41.4 12/04/2019 10:16 AM PLT 256 12/04/2019 10:16 AM MCV 90.6 12/04/2019 10:16 AM No results found for: MICROALBUMIN, MALBUR, [id number], MICRCREATR, MICRALBURINE Lab Results Component Value Date/Time TSH 4.04 05/16/2018 09:38 PM ASSESSMENT: Encounter Diagnoses Name Primary? Uncontrolled type 2 diabetes mellitus with insulin therapy Yes ??? Familial hypertriglyceridemia ??? Acquired hypothyroidism ??? Pancreatitis, recurrent ??? Tobacco dependence PLAN: Smoking cessation of most importance. Prescribed chantix (mechanism of action and side effects of that medication discussed) We had an extensive discussion in regards to the physiopathology of type 2 diabetes mellitus we discussed microvascular and macrovascular disease. We discussed targets in regards to b/sugars, lipids and BP. This will help prevent end organ damageand cardiovascular disease We talked about the importance of b/s monitoring, which should be done before meals and at bedtime. Casandra Mccray Bryansergio received information in regards to feet care as well as what needs to be monitored yearly such as feet exam and eye exam. I advised the patient extensively on a healthy diet consistent on fresh fruit, vegetables and wholegrains. It is advisable to start walking 30 minutes a day. The exercise should be started 5 min a day and incremented as tolerated. Daily exercise prevents metabolic conditions and this was also addressed. We talked about hypoglycemia, its symptoms and treatment. We also talked about the mechanism of action and side effects of the medications for diabetes. We reviewed the medications that she is taking (mechanism of action and side effects of that medication discussed) Needs to remain hydrated. We also reviewed [...] sensor, Sensor inserted Instruction provided. Regarding her hypothyroidism The patient is aware of the TSH [...] under 1000 to prevent another pancreatitis episode. Weight loss of most importance. She has not had a mammogram The patient had multiple questions that were addressed Orders Placed This Encounter ??? MAMMO SCREEN BILAT W OR WO CAD ??? HEMOGLOBIN A1C ??? BASIC METABOLIC PANEL ??? VITAMIN D 25 HYDROXY ??? MICROALBUMIN/CREATININE RATIO, RANDOM UR ??? MAGNESIUM LEVEL (General 12 MO) ??? TSH ??? LIPID PANEL ??? LDL CHOLESTEROL, DIRECT ??? Generic Referral to Smoking Cessation Program ??? varenicline (Chantix) 0.5 mg Tablet ??? empagliflozin (JARDIANCE) 25 mg tablet ??? insulin glargine (LANTUS) 100 unit/mL injection ??? flash glucose sensor (FreeStyle Torey 14 Day Sensor) Kit Thank you very much for allowing us to participate in this patient care. If you have any questions or concerns, please do not hesitate to contact us, Sincerely yours Prudence Gates Visit 45 min more than 50% of the time was spent counseling reviewing [facility] notes testing from [facility] documented in this encounter Plan of Treatment Upcoming Encounters Date Type Department Care Team (Late st Contact Info) Description 09/14/2024 3:00 PM CDT Office Visit [facility] [address] [place] [address] Marlys Mayer MD [address] [place] [address] Scheduled Referrals Name Type Priority Associated Diagnoses Orde r Schedule AMB REFERRAL TO SMOKING CESSATION PROGRAM Outpatient Referral Routine Tobacco dependence Ordered: 12/14/2019 documented as of this encounter Visit Diagnoses Diagnosis Uncontrolled type 2 diabetes mellitus with insulin therapy- Primary Type II or unspecified type diabetes mellitus without mention of complication, uncontrolled Familial hypertriglyceridemia Pure hyperglyceridemia Acquired hypothyroidism Unspecified hypothyroidism Pancreatitis, recurrent Chronic pancreatitis Tobacco dependence Tobacco use disorder documented in this encounter Care Teams Cement Handler Relationship Specialty Start Date End Date Guerrero Middleton PA-C PCP - General Physician Automatic Packer Operator 02/13/18 documented as of this encounter
--- OUTSIDE RECORDS SUMMARY | 2024-05-03 20:42 | XMS_ITS | Encounter Summary ---
Author Organization [facility] Address [address] [place] [address] Care Team Providers Care Location Analyst Name Role Phone Guerrero Middleton PA-C Primary Care Provide r Encounter Details Date Type Department Care Team (Latest Contact Info) Description 09/07/2019 9:54 AM CDT - 09/07/2019 11:59 PM CDT Hospital Encounter [facility] [address] [place] [address] Alize Arteaga MD NO ADDRESS ON FILE [...] often do you attend chur ch or shinto services? Never 08/21/2018 Do you belong to [...] Sign Reading Time Taken Comments Blood Pressure 102/68 09/07/2019 11:34 AM CDT Pulse 90 09/07/2019 11:34 AM CDT Temperature 36.7 ??C (98 ??F) 09/07/2019 11:34 AM CDT Respiratory Rate 18 09/07/2019 11:34 AM CDT Oxygen Saturation - - Inhaled [...] mouth 2 times daily. 06/05/2018 09/26/2023 empagliflozin (JARDIANCE) 10 mg tablet Take 1 Tablet (10 mg) by mouth daily channel process plant operator. 30 Tablet 5 04/08/2019 10/12/2019 levothyroxine 200 mcg tablet Take 1 Tablet [...] needed for nausea/vomiting. 30 Tablet 05/21/2018 09/26/2023 insulin glargine (LANTUS) 100 unit/mL injection Inject 35 Units by subcutaneous injection 2 times daily. 35 units in the AM 35 units in the PM 12/14/2019 pantoprazole (PROTONIX) 40 mg Tablet, Delayed Release [...] of this encounter Progress Notes * Puja Paz, CLAU - 09/07/2019 10:00 AM CDT Plasma exchange complete using R and L Bard ports. 1.0 Volume, 100% fluid balance using 5% albumin as replacement fluid. Pt tolerated the procedure well. Next procedure scheduled for SaturdaySeptember 13. * Alize Arteaga MD - 09/07/2019 10:00 AM CDT CC: ??43??yo female undergoing prophylaxis for??hypertriglyceridemic pancreatitis in the setting of?recurrent necrotizing pancreatitis requires??plasma exchange. ?? Interval history:??Patient admits she isn't feeling great/ starting to have some symptoms of markedhypertriglyceridemia. Was supposed to come for treatment 2 weeks ago, but has postponed procedure several times now. ?? PMH: ??Hypertriglyceridemia (associated with prior episodes of pancreatitis, received inpatient plasma exchanges 04/2018, 07/2018 and 09/2018, started on prophylactic exchanges October 2018, one port removed from R chest and new port placed in L chest 02/18/2019), DM, anxiety, GERG, HLD, hypothyroidism, PCOS ?? Meds: as per EPIC. ?? Exam: ?? General Appearance: - Well nourished - No acute distress Eyes: - No scleral icterus Neck: - No masses, symmetrical Cardiac: - No lower extremity edema Skin: - Inspection: No rashes evident - R chest port site well healed with pink scar -L chest port site??has bruising and swelling. No drainage or erythema noted. Respiratory: - Unlabored breathing Neuro: - Alert and Oriented x 3 - Normal Affect ?Labs: 09/07/19: WBC??10.1, Hgb 15.0, Hct??40.3, Plt??305 09/07/19: triglyceride??4,146??(preprocedure) ?? A&P: 1. 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 Patient has??recurrent necrotizing pancreatitis??and was??initiated on prophylactic plasmaexchange for prevention of hypertriglyceridemic pancreatitis starting 11/12/18??in consultation withDrs. Mcleod.??(ASFA category III indication for apheresis). 2. ??We will perform a 1.0 volume plasma exchange with all albumin replacement with 100% fluid balance with 2 g calcium gluconate over the procedure. ??Goal triglycerides <1000 per ASFA.? I have seen and examined the patient, reviewed pertinent notes and records, and remained immediately available throughout the procedure. ?? Alize Arteaga MD, PhD Field Crop Farming Supervisor, therapeutic apheresis service [phone] ?? Procedure??notes:?L and??R bard ports??used for procedure. ??Patient tolerated procedure well. Patient to return in one week. documented in this encounter Plan of Treatment Upcoming Encounters Date Type Department Care Team (Late st Contact Info) Description 09/14/2024 3:00 PM CDT Office Visit [facility] Heart and V[facility] - [facility] [address] [place] [address] Marlys Mayer MD [address] [place] [address] documented as of this encounter Procedures Procedure Name Priority Date/Time Associated Diagnosis Comments TRIGLYCERIDE Routine 09/07/2019 10:23 AM CDT Hypertriglyceridemi a CBC WITHOUT DIFFERENTIAL Stat 09/07/2019 10:22 AM CDT Hypertriglyceridemi a documented in this encounter Results * (ABNORMAL) TRIGLYCERIDE (09/07/2019 10:23 AM CDT) TRIGLYCERIDE 4,146(H) <150 mg/dL 09/07/2019 11:13 AM CDT [facility] [employer] [facility] Blood Venipuncture / Unknown 09/07/2019 10:23 AM CDT 09/07/2019 10:23 AM CDT Narrative [facility] - 09/07/2019 11:13 AM CDT TRIGLYCERIDES ? mg/dL Normal ?< 150 Borderline High ?150 - 199 High ? 200 - 499 Very High ? >= 500 Based on AHA/NCEP Guidelines. Alize Arteaga MD CHEMISTRY ORDER OSVALDO [employer] LABORATORY SERVICES - [facility] CLIA# [id number] [address] [place] [place] [address] * (ABNORMAL) CBC WITHOUT DIFFERENTIAL (09/07/2019 10:22 AM CDT) [facility] WBC 10.1(H) 4.0 - 9.8 K/uL 09/07/2019 10:33 AM CDT [facility] - [facility] RBC 4.58 3.90 - 4.90 M/uL 09/07/2019 10:33 AM CDT [facility] - [facility] HEMOGLOBIN 15.0(H) 11.8 - 14.8 g/dL 09/07/2019 10:33 AM CDT [facility] - [facility] HEMATOCRIT 40.3 35.5 - 44.0 % 09/07/2019 10:33 AM CDT [facility] - . [facility] MCV 88.0 82.0 - 99.0 fL 09/07/2019 10:33 AM CDT [facility] - [facility] MCH 32.8(H) 27.2 - 32.6 pg 09/07/2019 10:33 AM CDT [facility] - . [facility] MCHC 37.2(H) 31.5 - 35.5 g/dL 09/07/2019 10:33 AM CDT [facility] - [facility] PLATELETS 305 140 - 350 K/uL 09/07/2019 10:33 AM CDT [facility] - . [facility] MPV 10.0 9.3 - 12.4 fL 09/07/2019 10:33 AM CDT [facility] - . [facility] RDW 14.8(H) 11.5 - 14.5 % 09/07/2019 10:33 AM CDT [facility] - [facility] RDW-STDEV 47.3 37.1 - 48.7 fL 09/07/2019 10:33 AM CDT [facility] Blood Venipuncture / Unknown 09/07/2019 10:22 AM CDT 09/07/2019 10:22 AM CDT Alize Arteaga MD HEMATOLOGY YONI SERRANO [facility] [id number] [address] [place] [address] documented in this encounter Visit Diagnoses Diagnosis Hypertriglyceridemia- Primary Pure hyperglyceridemia documented in this encounter Administered Medications Inactive Administered Medications - up to 3 most recent administrations Medication Order MAR Action Action Date Dose Rate Site calcium GLUCONATE 2,000 mg in sodium chloride 0.9% 120 mL IVPB 2,000 mg, IV, INTRA-PROCEDURE ONCE, 1 dose, Starting on Sat09/07/19 at 1000, Until Sat09/07/19 at 1138, Routine New Bag 09/07/2019 10:37 AM CDT 2,000 mg 135 mL/hr heparin, porcine (pf) 10 unit/mL IV syringe 20 Units 20 Units, IV, POST-PROCEDURE ONCE, 1 dose, Starting on 09/07/19 at 1000, Until 09/07/19 at 1137, Routine, Please tube to station 516, blood bank Given 09/07/2019 11:37 AM CDT 20 Units heparin, porcine lock flush (pf) 100 unit/mL injection 500 Units 500 Units, IV, PRE-PROCEDURE ONCE, 1 dose, Starting on 09/07/19 at 1000, Until 09/07/19 at 1138, Routine, Please tube to station 516, blood bank Given 09/07/2019 11:38 AM CDT 500 Units heparin, porcine lock flush (pf) 100 unit/mL injection 500 Units 500 Units, IV, POST-PROCEDURE ONCE, 1 dose, Starting on 09/07/19 at 1000, Until 09/07/19 at 1137, Routine, Please tube to station 516, blood bank Given 09/07/2019 11:37 AM CDT 500 Units documented in this encounter Care Teams Location Analyst Relationship Specialty Start Date End Date Guerrero Middleton PA-C PCP - General Physician Claim Approver 02/13/18 documented as of this encounter
--- OUTSIDE RECORDS SUMMARY | 2024-05-03 20:42 | XMS_ITS | Encounter Summary ---
Author Organization [facility] Address [address] Orozco: Epic Prelude ADT [place] [address] Care Team Providers Care Plugger Man Name Role Phone Guerrero Middleton PA-C Primary Care Provide r Encounter Details Date Type Department Care Team (Latest Contact Info) Description 10/07/2019 Travel Social History Tobacco Use Types Packs/Day [...] you attend [facility] or rastafari services? Never 08/21/2018 Do you [...] have Coronavirus / COVID-19? No / Unsure 10/07/2019 9:41 AM CDT documented as of this encounter Plan of Treatment Upcoming Encounters Date Type Department Care Team (Late st Contact Info) Description 09/14/2024 3:00 PM CDT Office [facility] [address] [place] [address] Marlys Mayer MD [address] [place] [address] documented as of this encounter Visit Diagnoses Not on filedocumented in this encounter Care Teams Plugger Man Relationship Specialty Start Date End Date Guerrero Middleton PA-C PCP - General Physician Cobol Mainframe Developer 02/13/18 documented as of this encounter
--- OUTSIDE RECORDS SUMMARY | 2024-05-03 20:42 | XMS_ITS | Encounter Summary ---
Author Organization [facility] Address [address] [place] [address] Care Team Providers Care Library Page Name Role Phone Guerrero Middleton PA-C Primary Care Provide r Reason for Visit * Reason Comments Abdominal Pain LUQ pain starting afternoon. +n/v. h/o hypertriglyceremia, seen for same 05/11 * Auth/Cert Specialty Diagnoses / Procedures Referred By Tequila t Referred To Contact Emergency Medicine [facility] Emergency Dept [address] [place] [address] Referral ID Status Reason Start Date Expiration Date Visits Re quested Visits Authorized [id number] 1 1 Encounter Details Date Type Department Care Team (Latest Contact Info) Description 05/24/2019 12:48 AM ANY COMMODITY BUYER - 05/25/2019 4:22 PM ANY COMMODITY BUYER Hospital Encounter [facility] [address] [place] [address] Nahed Vivar MD [address] [facility]. [place], [place] [id number] Parviz Sanabria MD [address] [facility] [address] [place] [address] [place] [address] [place] [id number] Acute on chronic pancreatitis Discharge Disposition: Home [...] Sign Reading Time Taken Comments Blood Pressure 100/54 05/25/2019 3:00 PM ANY COMMODITY BUYER Pulse 87 05/25/2019 3:00 PM ANY COMMODITY BUYER Temperature 36.9 ??C (98.5 ??F) 05/25/2019 3:00 PM CS T Respiratory Rate 19 05/25/2019 3:00 PM ANY COMMODITY BUYER Oxygen Saturation 97% 05/25/2019 3:00 PM ANY COMMODITY BUYER Inhaled Oxygen Concentration - - Weight 87.7 kg (193 lb 4.8 oz) 05/24/2019 3:37 P M ANY COMMODITY BUYER Height 165.1 cm (5' 5 ) 05/24/2019 3:37 PM ANY COMMODITY BUYER Body Mass Index 32.17 05/24/2019 3:37 PM ANY COMMODITY BUYER documented in this encounter Discharge Summaries * Parviz Sanabria MD - 05/25/2019 4:22 PM CST [facility] Adult Hospitalist Discharge Summary Patient Name: Casandra Doss / 43 y.o. / female : 1975 Primary Care Physician: Guerrero Middleton PA-C Date of Admission: 05/24/2019 Date of Discharge : 05/25/2019 Admitting Diagnoses: Active Hospital Problems Diagnosis ??? Acute on chronic pancreatitis ??? Acquired hypothyroidism ??? Type 2 diabetes mellitus without complication, with long-term current use of insulin ??? Hypertriglyceridemia Resolved Hospital Problems No resolved problems to display. ?? Discharge Diagnoses: ?? As above The history and physical were dictated by Maco Duque MD and included a ROS. This will not be repeated here. MEDICATIONS Prior to admission: Medications Prior to Admission Medication Sig Dispense Refill Last Dose ??? 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 30 Tablet 5 05/23/2019 at Unknown time ??? levothyroxine 200 mcg tablet Take 1 Tablet by mouth daily without food in the morning 30 minutes before eating anything. 30 Tablet 5 05/23/2019 at Unknown time ??? metFORMIN (GLUCOPHAGE) 500 mg tablet Take 2 Tablets by mouth 2 times daily with meals. 60 Tablet 0 05/23/2019 at Unknown time ??? ondansetron (ZOFRAN ODT) 4 mg Tablet, Rapid Dissolve Dissolve 1 tablet on top of tongue, then swallow with saliva every 6 hours as needed for nausea/vomiting. 30 Tablet 0 05/24/2019 at Unknown time ??? insulin glargine (LANTUS) 100 unit/mL injection Inject 35 Units by subcutaneous injection 2 times daily. 35 units in the AM 35 units in the PM 05/23/2019 at Unknown time ??? pantoprazole (PROTONIX) 40 mg Tablet, Delayed Release (E.C.) Take 40 mg by mouth 2 times daily . 05/23/2019 at Unknown time ??? traZODone (DESYREL) 100 mg tablet Take 100 mg by mouth daily at bedtime . Past Week at Unknown time ??? rosuvastatin (CRESTOR) 20 mg tablet Take 20 mg by mouth daily at bedtime. 05/23/2019 at Unknown time ??? LORazepam (ATIVAN) 1 mg tablet Take 1 mg by mouth 2 times daily as needed for Anxiety . Past Week at Unknown time ??? citalopram (CeleXA) 40 mg tablet Take 40 mg by mouth daily at bedtime. Past Week at Unknown time ??? fenofibrate (LOFIBRA) 160 mg Oral Tab Take 1 Tab by mouth daily. 90 Tab 0 05/23/2019 at Unknown time ??? oxyCODONE-acetaminophen (PERCOCET) 5-325 mg tablet Take 1 Tablet by mouth every 6 hours as needed for Pain, Break-Through. Max Daily Amount: 4 Tablets 17 Tablet 0 Unknown at Unknown time ??? dicyclomine (BENTYL) 10 mg capsule Take 1 Capsule by mouth 4 times daily. 60 Capsule 0 Unknown at Unknown time ??? insulin aspart (NovoLOG) 100 unit/mL injection Inject 1 Units by subcutaneous injection. 25 units with each meal 05/10/2019 at 1800 Discharge medications and new prescriptions: Medication List CONTINUE taking these medications citalopram 40 mg tablet Commonly known as: CeleXA Take 40 mg by mouth daily at bedtime. Refills: 0 dicyclomine 10 mg capsule Commonly known as: BENTYL Take 1 Capsule by mouth 4 times daily. 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 Signed by: Blake Rudd MD Quantity: 30 Tablet Refills: 5 fenofibrate 160 mg Tablet Commonly known as: LOFIBRA Take 1 Tab by mouth daily. Signed by: Prudence Gates MD Quantity: 90 Tab Refills: 0 insulin aspart 100 unit/mL injection Commonly known as: NovoLOG Inject 1 Units by subcutaneous injection. 25 units with each meal Refills: 0 insulin glargine 100 unit/mL injection Commonly known as: LANTUS Inject 35 Units by subcutaneous injection 2 times daily. 35 units in the AM 35 units in the PM Refills: 0 levothyroxine 200 mcg tablet Commonly known as: SYNTHROID Take 1 Tablet by mouth daily without food in the morning 30 minutes before eating anything. Signed by: Blake Rudd MD Quantity: 30 Tablet Refills: 5 LORazepam 1 mg tablet Commonly known as: ATIVAN Take 1 mg by mouth 2 times daily as needed for Anxiety . Refills: 0 metFORMIN 500 mg tablet Commonly [...] Desai MD Quantity: 30 Tablet Refills: 0 oxyCODONE-acetaminophen 5-325 mg tablet Commonly known as: PERCOCET Take 1 Tablet by mouth every 6 hours as needed for Pain, Break-Through. Max Daily Amount: 4 Tablets Signed by: Jeffry Salazar MD Quantity: 17 Tablet Refills: 0 pantoprazole 40 mg Tablet, Delayed Release (E.C.) Commonly known as: PROTONIX Take 40 mg by mouth 2 times daily . Refills: 0 rosuvastatin 20 mg tablet Commonly known as: CRESTOR Take 20 mg by mouth daily at bedtime. Refills: 0 traZODone 100 mg tablet Commonly known as: DESYREL Take 100 mg by mouth daily at bedtime . Refills: 0 Consults: Lab medicine/pathology. Significant Diagnostic Studies: Results for CASANDRA DOSS ( ) as of 05/26/2019 10:44 Ref. Range 05/24/2019 01:09 05/24/2019 06:57 05/24/2019 10:30 05/24/2019 14:58 05/25/2019 05:18 TRIGLYCERIDE Latest Ref Range: <150 mg/dL 1,358 (H) 419 (H) Labs including discharge lab data: Results for orders placed or performed during the hospital encounter of 05/24/19 (from the past 24 hour(s)) POC GLUCOSE Result Value Ref Range POC GLUCOSE 240 (H) 74 - 99 mg/dL AD OPERATIONS INTERN NAME DESIREE NEAL TRIGLYCERIDE Result Value Ref Range TRIGLYCERIDE 419 (H) <150 mg/dL POC GLUCOSE Result Value Ref Range POC GLUCOSE 153 (H) 74 - 99 mg/dL AD OPERATIONS INTERN NAME CEDRIC (pn - FRADOMINICK )LAURA POC GLUCOSE Result Value Ref Range POC GLUCOSE 174 (H) 74 - 99 mg/dL AD OPERATIONS INTERN NAME rocío NARVAEZ - JOSH )LAURA Labs and studies that are pending and need follow- up or need to be done shortly after discharge: per routine Discharge Exam: BP 100/54 (BP Location: Right arm, Patient Position (BP): Supine) Pulse 87 Temp 98.5 ??F (36.9 ??C) (Oral) Resp 19 Ht 5' 5 (1.651 m) Wt 87.7 kg (193 lb 4.8 oz) SpO2 97% BMI 32.17 kg/m?? General: Alert, cooperative, no distress, appears stated age. Neck: symmetrical, trachea midline, Lungs: Clear to auscultation bilaterally. Heart: Regular rate and rhythm, S1, S2 normal, no murmur, click, rub or gallop. Abdomen: Soft, mild epigastric tenderness Bowel sounds normal. No masses, No organomegaly. Extremities: Extremities normal, atraumatic, no cyanosis or edema. Neurologic: CNII-XII grossly intact. [facility] Hospital Course: Per HPI by Dr. Pantelis 43 y.o. female w/ recurrent pancreatitis and hypertriglyceridemia, normally gets weekly plasmapheresis. Last apheresis 05/11 and had new port placed and they were trying to take a small break before her next one. Had been doing well. Developed upper abd painlast night, recurrent n/v, some diarrhea. No blood in emesis. No fever Suspicion was for recurrence of her pancreatitis even though lipase was in the normal range. She underwent aphresis the day after presentation. Her TG's were 1300 and decreased to under 500 after onetreatment. She felt improved. She tolerated a low fat diet and was wanting to be discharged. Lab medicine staff will arrange for repeat TG lab draw early next week Discharge Condition: stable. Disposition: home. Code Status: Full Code Patient instructions: Activity: activity as tolerated. Diet: Diabetic Diet and Low fat, Low cholesterol. Wound Care: None needed. Follow up with Guerrero Middleton PA-C in [address] Arteaga's nursing staff will contact you for repeat blood work(triglycerides) early next week More than 45 minutes were spent in this discharge activity. Signed: Parviz Sanabria MD 05/25/2019, 4:22 PM COMMODITY BUYER documented in this encounter Discharge Instructions * Discharge Instructions* Parviz Sanabria MD - 05/25/2019 1:03 PM ANY COMMODITY BUYER Your discharging physician is Parviz Sanabria MD and may be reached at [phone] for any questions or concerns until you see your doctor. FOLLOW-UP Follow up with Guerrero Middleton PA-C in [address] Arteaga's nursing staff will contact you for repeat blood work(triglycerides) early next week. Prescriptions given yes SIGNS AND SYMPTOMS TO REPORT Contact your health care provider if you experience any of the following symptoms: Headache, chest pain, shortness of breath diarrhea, fever, abdominal pain or any other concerning symptoms. Heart Patients: Weigh yourself everyday at the same time, with the same amount of clothing and after you have emptied your bladder. Keep a log of your daily weights and bring them with you to your physician appointments. Call your physician (*) if you have a weight gain of 2 pounds in one day (or 5pounds in one week) or (*) if you have increased shortness of breath or (*) if you have swelling inyour feet, belly or legs. <<<Call 911 or go to the nearest emergency room if you have increased shortness of breath or chest pain or discomfort that is not relieved by nitroglycerin. Smoking Exposure: [facility] encourages all patients to decrease risks associated with smoking and second hand smoke exposure. If you smoke you are advised to quit. Ask your health care provider for advice if youneed assistance to stop smoking. Avoid second-hand smoke exposure and do not let people smoke in your home. Please call [phone], our pulmonary rehabilitation department, to learn more about options to reduce your risks. ACTIVITY Your activity level is: increase activity as tolerated and no smoking. You may return to work/school . DIET Your diet is: low fat, diabetic diet WOUND CARE For your wound/incision: not applicable. 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 30 Tablet 5 04/08/2019 10/12/2019 levothyroxine 200 [...] as of this encounter Progress Notes * Desiree Neal RN - 05/25/2019 3:01 AM CST Shift Note: Neuro: C/o moderate abdominal pain. Unable to medicate due to hypotension. MDs notified and interventions preformed. Patient upset that she could not receive dilaudid as that is the only pain medication that works for her, so she states. Educated her multiple times that it was unsafe to administer that medication with blood pressures as low as she was experiencing. No real evidence of learning. CV: SPB 80s-low 90s with MAPs of low 60s. 2500ml total fluid bolus given to help increase BP (not all at once). HR maintained low to mid 70s during the entire night even with bad pain. Resp: no issues. Clear GI: clear liquid diet. Had a few apple juices. Gave some compazine for slight nausea. : large amount output Pain/Delirium/Sleep: Once pt fell asleep around 2345, she stayed asleep unless this RN woke her up to retake her BP or ask if she needed to use the bathroom. Will continue to monitor blood pressures closely. Shift Undress and Assess performed by two coworkers: 1. marilu OLGUIN 2. Yarely TALAVERA The patient does not have existing skin breakdown, if yes, describe: n/a The patient does not have new purple/sissy/dark red over ANY bony prominences (ears, elbows, knees, heels, coccyx, hips), if yes, describe: n/a ~If ANY answer 'yes'- please re-consult and call wound care~ Wound care consult was not in place. Wound care consult was not initiated. Are there currently any skin protectant dressings in place, if yes, where? n/a If yes, please describe condition of skin under dressing: n/a If no, were any applied and where: n/a Are there any currently any medical devices in place (leg immobilizers, FMS, c- collars, splints, etc.)? n/a If yes, describe skin under device: n/a Education: Patient has Chin Score of 20. Patient educated on importance of q2 hour [...] staff. Patient/family demonstrates understanding of stated education. COMMODITY BUYER * Bibiana Rockwell NP - 05/24/2019 10:53 PM CST [facility] HOSPITALIST NOTE 05/24/19 10:53 PM Problem: BP hasn't moved much after bolus. MAP of 67. Patient's pain is still moderate. Vitals: 05/24/19 1758 05/24/19 1800 05/24/19 1823 05/24/19 1948 Temp: 98.1 ??F (36.7 ??C) Pulse: 78 79 Heart Rate: 71 bpm 79 bpm BP: (!) 88/51 (!) 91/52 (!) 91/52 (!) 85/53 Mean Arterial Pressure: 64 MM HG 64 MM HG Resp: 9 17 SpO2: 94% 92% Intervention/Follow up/Discussion: Doesn't appear very uncomfortable right now. Easily arousable, but falling asleep. Would continue to hold off on iv pain meds. Can bolus another 500 ml NS Maco Duque MD Submit an eTicket ADDENDUM Time: 05/24/19 11:43 PM Problem:Pt's BP now 97/65(74) after 1500ml total bolus. Pain is still 12/06. Intervention/Follow up/Discussion: Resume prn iv dilaudid at 0.5 mg q3h prn Maco Duque MD ADDENDUM Time: 05/25/19 2:51 AM Problem: Pt continues to be hypotensive. Latest BP 86/50(61). Arouses easily. Did not administer any pain medications when ordered because patient fell asleep and has been since. Pt had plasmapheresis done today with 5% albumin return. MAP 50 - 60s. Last dilaudid @ 1830. RN reports LS clear. Intervention/Follow up/Discussion: - NS 1L bolus x 1 now Bibiana Rockwell, ORNAMENTAL METAL FABRICATOR APPRENTICE ADDENDUM Time: 05/25/19 5:29 AM Problem: pt states she was told not to let RNs access port for blood draws or meds other than plasma pheresis. Is this accurate? Also, pain continues. BP 101/63 (75). Only pain medication availableis dilaudid. Lab Results Component Value Date/Time CREAT 0.60 05/24/2019 02:58 PM BUN 11 05/24/2019 02:58 PM NA 139 05/24/2019 02:58 PM K 4.3 05/24/2019 02:58 PM CL 105 05/24/2019 02:58 PM CO2 24 05/24/2019 02:58 PM Intervention/Follow up/Discussion: - Do not access pheresis port - Toradol 30 mg IVP x 1. If this is effective, please call back and will order additional dose. Bibiana Rockwell, ORNAMENTAL METAL FABRICATOR APPRENTICE COMMODITY BUYER * Lalita Damico MD - 05/24/2019 9:16 PM CST [facility] HOSPITALIST NOTE 05/24/19 9:17 PM Problem: Pt states her pain is not controlled w/o Dilaudid however her MAPs have been in the low 60s. Okay to give? Vitals: 05/24/19 1758 05/24/19 1800 05/24/19 1823 05/24/19 1948 Temp: 98.1 ??F (36.7 ??C) Pulse: 78 79 Heart Rate: 71 bpm 79 bpm BP: (!) 88/51 (!) 91/52 (!) 91/52 (!) 85/53 Mean Arterial Pressure: 64 MM HG 64 MM HG Resp: 9 17 SpO2: 94% 92% Intervention/Follow up/Discussion: Chart reviewed. BP 88/51, will bolus 1 L NS now. Continue to hold dilaudid while hypotensive. Lalita Damico MD Submit an eTicket COMMODITY BUYER * Rosales Tapia, RN - 05/24/2019 6:08 PM CST Plasma exchange number 1 using the left/right bard powerflow ports for access and return with 5% albumin as replacement fluids for a 1.0 volume exchange. COMMODITY BUYER * iNna Barber RN - 05/24/2019 6:04 PM CST Undress and Assess performed by the following two coworkers:caren verduzco Admission or upon transfer to:[facility] ~~~~~~~~~~~~~~~~~~~~~~~~~~~~ Is the patient a paraplegic/quadriplegic?no Does the patient have new purple/sissy/dark red over bony prominences?no Does the patient have an ostomy?no Is the length of stay >2 weeks?no ~If ANY answer 'yes'- please consult Wound Care~ Patient does not have skin breakdown. Location/ Description of breakdown: Wound care consult was not initiated. Is there skin breakdown under any Aquaculture Farmer (splint, ETT ha, c-collar)? If yes, please describe: Are there currently any skin protective dressings in place? If yes, please describe skin under dressing: Protective Dressings Applied to Sacrum and Heels (Mepilex) as per Pathway? No Patient arrived to this room with the following belongings/valuables:(ie:dentures, hearing aids, glasses):none Patient arrived to this room with the following medical equipment/devices (ie: insulin pump, home CPAP, walker):none All Jewelry removed from patient N/A Disposition of belongings/valuables:none COMMODITY BUYER * Parviz Sanabria MD - 05/24/2019 9:43 AM CST Getting aphresis once/week. Last done 05/11. At that time one of the ports had to be replaced which was done by IR She started with diarrhea, n/v Saturday night that persisted into Saturday. As Saturday progressed her upper abd pain started and increased and she felt this was consistent with previous bouts of pancreatitis. Her TG's checked here today and it is 1358. Currently having some nausea. rrr ctab Soft +epigastric tenderness No edema Most probably acute on chronic pancreatitis r/t hypertriglyceridemia.. Spoke to Dr. Riddle of pathology who will assist in setting up aphresis today. Assistance appreciated. Given plans for aphresis will stop insulin gtt and change fluids to NS. Last blood sugar was 78 COMMODITY BUYER documented in this encounter H&P Notes * Maco Duque MD - 05/24/2019 4:57 AM CST [facility] Adult Hospitalist Admission H & P Patient Name: Casandra Doss Primary Care Doctor: Guerrero Middleton PA-C Date of Admission: 05/24/2019 Date of Service: 05/24/2019 Chief Complaint: abd pain HPI: Casandra Doss is a 43 y.o. female w/ recurrent pancreatitis and hypertriglyceridemia, normally getsweekly plasmapheresis. Last apheresis 05/11 and had new port placed and they were trying to take a small break before her next one. Had been doing well. Developed upper abd pain last night, recurrent n /v, some diarrhea. No blood in emesis. No fever. Past Medical History: Diagnosis Date ??? Anxiety [...] of left power flow port 05/11/2019 ??? ME ESOPHAGOGASTRODUODENOSCOPY TRANSORAL DIAGNOSTIC N/A 03/08/2018 ESOPHAGOGASTRODUODENOSCOPY performed by Ceasar Vega MD at [facility] Current Medications: Prior to Admission Medications Prescriptions Last Dose Informant Patient Reported? Taking? LORazepam (ATIVAN) 1 mg tablet Past Week at Unknown time Yes Yes Sig: Take 1 mg by mouth 2 times daily as needed for Anxiety . citalopram (CeleXA) 40 mg tablet Past Week at Unknown time Yes Yes Sig: Take 40 mg by mouth daily at bedtime. dicyclomine (BENTYL) 10 mg capsule Unknown at Unknown time No No Sig: Take 1 Capsule by mouth 4 times daily. 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 fenofibrate (LOFIBRA) 160 mg Oral Tab 05/23/2019 at Unknown time No Yes Sig: Take 1 Tab by mouth daily. insulin aspart (NovoLOG) 100 unit/mL injection Yes No Sig: Inject 1 Units by subcutaneous injection. 25 units with each meal insulin glargine (LANTUS) 100 unit/mL injection 05/23/2019 at Unknown time Yes Yes Sig: Inject 35 Units by subcutaneous injection 2 times daily. 35 units in the AM 35 units in the PM levothyroxine 200 mcg tablet 05/23/2019 at Unknown time No Yes Sig: Take 1 Tablet by mouth daily without food in the morning 30 minutes before eating anything. metFORMIN (GLUCOPHAGE) 500 mg tablet 05/23/2019 at Unknown time No Yes Sig: Take 2 Tablets by mouth 2 times daily with meals. ondansetron (ZOFRAN ODT) 4 mg Tablet, Rapid Dissolve 05/24/2019 at Unknown time No Yes Sig: Dissolve 1 tablet on top of tongue, then swallow with saliva every 6 hours as needed for nausea/vomiting. oxyCODONE-acetaminophen (PERCOCET) 5-325 mg tablet Unknown at Unknown time No No Sig: Take 1 Tablet by mouth every 6 hours as needed for Pain, Break-Through. Max Daily Amount: 4 Tablets pantoprazole (PROTONIX) 40 mg Tablet, Delayed Release (E.C.) 05/23/2019 at Unknown time Yes Yes Sig: Take 40 mg by mouth 2 times daily . rosuvastatin (CRESTOR) 20 mg tablet 05/23/2019 at Unknown time Yes Yes Sig: Take 20 mg by mouth daily at bedtime. traZODone (DESYREL) 100 mg tablet Past Week at Unknown time Yes Yes Sig: Take 100 mg by mouth daily at bedtime . Facility-Administered Medications: None Medication Allergies: Allergies Allergen Reactions ??? Green Pepper Hives ??? Adhesive Unknown ??? Aspartame Headache All artificial sweeteners. ??? Adhesive Tape-Silicones Hives Family History Problem Relation Name Age of [...] use: No Frequency: Never Binge frequency: Never Review of Systems: Constitutional: no fever, chills, appetite changes, weight loss Eyes: no eye pain, visual loss, blurry vision Ears: no hearing loss, or tinnitus Mouth: no oral ulcers, sore throat Endocrine: no polyuria, polydipsia Pulm: no shortness of breath, cough, hemoptysis CV: no chest pain, PND, orthopnea, lower extremity edema GI: + abdominal pain, n/v : no hematuria, dysuria, frequency Musc: no swollen joints Skin: no new skin rashes Neuro: no focal motor or sensory changes. Psychiatric: no hallucinations Physical Exam: Patient Vitals for the past 8 hrs: BP Temp Temp src Pulse Resp SpO2 Height Weight 05/24/19 0358 103/63 -- -- 81 20 91 % -- -- 05/24/19 0230 110/65 -- -- 70 20 91 % -- -- 05/24/19 0145 111/57 -- -- 69 20 92 % -- -- 05/24/19 0120 118/76 -- -- 80 20 99 % -- -- 05/23/19 2202 111/60 98.2 ??F (36.8 ??C) Oral 82 22 98 % 5' 5 (1.651 m) 88 kg (194 lb) General: NAD HEENT: Head is NC/AT, PERRL. EOMI, conjuctiva and sclera are nonicteric, oropharynx is moist without obvious lesions Neck: supple, trachea midline, no thyromegaly, no significant adenopathy Lungs: CTA bilaterally CV: RRR, nl S1, S2 Abd: Positive BS, soft, mild generalized ttp wo rebound Ext: no clubbing, cyanosis, or edema Skin: no obvious rashes Neuro: alert and oriented and answers questions appropriately. CN 2-12 grossly intact. Data Base: I personally reviewed all pertinent diagnostic data since presentation to the ED and available old records Labs: Results for orders placed or performed during the hospital encounter of 05/24/19 (from the past 24 hour(s)) CBC WITH DIFFERENTIAL Result Value Ref Range WBC 10.7 (H) 4.0 - 9.8 K/uL RBC 4.33 3.90 - 4.90 M/uL HEMOGLOBIN 12.9 11.8 - 14.8 g/dL HEMATOCRIT 38.5 35.5 - 44.0 % MCV 88.9 82.0 - 99.0 fL MCH 29.8 27.2 - 32.6 pg MCHC 33.5 31.5 - 35.5 g/dL RDW 14.0 11.5 - 14.5 % RDW-STDEV 45.9 37.1 - 48.7 fL PLATELETS 288 140 - 350 K/uL MPV 9.6 9.3 - 12.4 fL NEUTROPHILS 62 % LYMPHOCYTES 30 % MONOCYTES 6 % EOSINOPHILS 1 % BASOPHILS 0 % IMMATURE GRANULOCYTES 1 % NEUTROPHIL ABSOLUTE 6.63 1.90 - 7.00 K/uL LYMPHOCYTE ABSOLUTE 3.22 0.70 - 4.50 K/uL MONOCYTE ABSOLUTE 0.61 0.10 - 1.30 K/uL EOSINOPHIL ABSOLUTE 0.10 0.00 - 0.70 K/uL BASOPHILS ABSOLUTE 0.04 0.00 - 0.20 K/uL IMMATURE GRANULOCYTES ABSOLUTE 0.05 (H) 0.00 - 0.03 K/uL COMPREHENSIVE METABOLIC PANEL Result Value Ref Range SODIUM 135 (L) 136 - 145 mmol/L POTASSIUM 4.2 3.5 - 5.0 mmol/L CHLORIDE 97 (L) 98 - 107 mmol/L CO2 22 22 - 29 mmol/L CALCIUM 9.7 8.6 - 10.2 mg/dL BUN 12 6 - 20 mg/dL CREATININE 0.68 0.51 - 0.95 mg/dL GLUCOSE 253 (H) 74 - 99 mg/dL TOTAL PROTEIN 6.8 6.7 - 8.6 g/dL ALBUMIN 4.6 3.5 - 5.2 g/dL BILIRUBIN TOTAL 0.2 (L) 0.3 - 1.2 mg/dL ALKALINE PHOSPHATASE 74 35 - 104 U/L AST 18 <33 U/L ALT 17 <34 U/L GFR >60 >=60 mL/min/1.73 sq meter GFR, >60 >=60 mL/min/1.73 sq meter ANION GAP 16 8 - 16 mmol/L LIPASE Result Value Ref Range LIPASE 42 13 - 60 U/L URINALYSIS WITH REFLEX MICROSCOPIC Result Value Ref Range COLOR UA Pale Yellow Pale to Dark Yellow CLARITY UA Clear Clear SPECIFIC GRAVITY UA 1.033 1.003 - 1.035 PH UA 6.0 5.0 - 8.0 LEUKOCYTE ESTERASE UA Negative Negative NITRITE UA Negative Negative PROTEIN UA Negative Negative GLUCOSE UA 3+ (A) Negative KETONES UA Trace (A) Negative UROBILINOGEN UA Normal <2.0 mg/dL BILIRUBIN UA Negative Negative BLOOD UA Negative Negative TRIGLYCERIDE Result Value Ref Range TRIGLYCERIDE 1,358 (H) <150 mg/dL POC GLUCOSE Result Value Ref Range POC GLUCOSE 185 (H) 74 - 99 mg/dL AD OPERATIONS INTERN NAME ELIESERDONALDOMONSE POC GLUCOSE Result Value Ref Range POC GLUCOSE 214 (H) 74 - 99 mg/dL AD OPERATIONS INTERN NAME MONSE MON POC GLUCOSE Result Value Ref Range POC GLUCOSE 224 (H) 74 - 99 mg/dL AD OPERATIONS INTERN NAME MONSE MON ECG personally reviewed and interpreted: Plain films personally reviewed and interpreted: Assessment: Principal Problem: Acute on chronic pancreatitis Active Problems: Hypertriglyceridemia Type 2 diabetes mellitus without complication, with long-term current use of insulin Acquired hypothyroidism Plan: History of recurrent panc and elevated tg w/ abd pain, lipase nl but tg up > 1000 after doing better from that standpoint recently. Admit to tcu, NPO, pain control, IV fluids, IV dilaudid for painwith monitoring of vitals/resp status Continue insulin drip with per pathway and q1 accuchecks until apheresis team can be notified Cont lofibra Cont synthroid DVTp with: lovenox Code status: full Dispo: anticipated los > 2 mn Further plans and recommendations pending the above results. Maco Duque MD P: [phone] COMMODITY BUYER documented in this encounter ED Notes * Marlen Ma, RN - 05/24/2019 2:54 PM CST Deisy OLGUIN preparing to medicate pt for increasing pain prior to transport to TCU. This RN released signed and held orders at this time. COMMODITY BUYER * Susan Norman - 05/24/2019 2:48 PM CST Mauro De Oliveira RN on floor notified. COMMODITY BUYER * Deisy Musa RN - 05/24/2019 12:46 PM CST ED nurse verbally discussed patient plan of care at this time. COMMODITY BUYER * Deisy Musa RN - 05/24/2019 11:24 AM CST Patient/family has been informed about benefits and any potential clinically significant side effects or other concerns regarding the administration of the drug they have just been given. COMMODITY BUYER * Deisy Musa RN - 05/24/2019 10:44 AM CST Patient/family has been informed about benefits and any potential clinically significant side effects or other concerns regarding the administration of the drug they have just been given. COMMODITY BUYER * Deisy Musa RN - 05/24/2019 8:45 AM CST Patient/family has been informed about benefits and any potential clinically significant side effects or other concerns regarding the administration of the drug they have just been given. COMMODITY BUYER Deisy Paredes RN - 05/24/2019 8:18 AM CST Patient/family has been informed about benefits and any potential clinically significant side effects or other concerns regarding the administration of the drug they have just been given. COMMODITY BUYER * Monse Mon RN - 05/24/2019 6:25 AM CST Report given to CLAU Ho. Pt denies further needs at this time. Assessment remains unchanged. Even unlabored breathing pattern noted. Call light within reach and encouraged to use. COMMODITY BUYER * Monse Mon RN - 05/24/2019 5:10 AM CST Pt denies further needs at this time. Assessment remains unchanged. Even unlabored breathing pattern noted. Call light within reach and encouraged to use. COMMODITY BUYER * Monse Mon RN - 05/24/2019 4:40 AM CST Pt placed on hospital bed. Pt c/o increased pain 11/05. COMMODITY BUYER * Monse Mon RN - 05/24/2019 3:00 AM CST This Rn Called and spoke with pharmacy who verified D5 -sodium chloride 0.45% is compatible with insulin regular. COMMODITY BUYER * Monse Mon RN - 05/24/2019 12:59 AM CST MD vivar at pt bedside. COMMODITY BUYER * Monse Mon RN - 05/24/2019 12:51 AM CST Pt came to ed c/o abdominal pain xyesterday afternoon. +n/v. h/o hypertriglyceremia,PCOS. Pt seen for same s/s 05/11. Denies incontinence. - CP/SOB. Aox4 even unlabored breathing pattern. Pt at pt bedside. COMMODITY BUYER * Afua Joyce RN - 05/23/2019 10:02 PM CST Discussed with patient potential placement in a nails bed in the ED to expedite evaluation. Patient agrees to being placed in nails bed. COMMODITY BUYER * Nahed Vivar MD - 05/23/2019 9:58 PM CST HISTORY OF PRESENT ILLNESS Casandra Doss, a 43 y.o. female presents to the ED with a Chief Complaint of Abdominal Pain Subjective Documented Triage Chief Complaint: Abdominal Pain 12:56 AM: Casandra Doss is a 43 y.o. female with a history of DM2, HLD, GERD, Depression, metabolicsyndrome, PCOS, family hx of early CAD, hypothyroidism, anxiety, high triglycerides, pancreatitis, smoker, chylomicronemia syndrome, hysterectomy, and appendectomy who presents with worsening LUQ abdominal pain onset Saturday afternoon (05/22/19). She reports history of hyper-triglyceremia and was seen with similar symptoms on 05/11/19. She associates N/V/D. She notes vomiting twice on Saturday (05/23/19) and has been having watery diarrhea every 15-20 minutes last night. She states the pain is worse with eating or taking fluids. Denies fever, cough, cold, or rhinorrhea. She has been taking her regular medications, but hasn't been taking any pain medications or abdominal medications for motility. Severity: moderate Duration: days Progression: worsening Quality: achy sharp Radiation: entire abdomen and back Associated symptoms: see above Primary Care Doctor: Guerrero Middleton PA-C History provided by: The patient Arrived by: Private vehicle Arrived from: Home REVIEW OF SYSTEMS Review of Systems Constitutional: Positive for activity change, appetite change and fatigue. Negative for chills and fever. HENT: Negative for congestion, ear pain, rhinorrhea and sore throat. Eyes: Negative for discharge. Respiratory: Negative for cough and shortness of breath. Cardiovascular: Negative for chest pain. Gastrointestinal: Positive for abdominal pain, diarrhea, nausea and vomiting. Negative for blood instool and constipation. Endocrine: Negative for polydipsia. Genitourinary: Negative for dysuria. Musculoskeletal: Positive for back pain. Negative for arthralgias. Skin: Negative for rash. Allergic/Immunologic: Negative for immunocompromised state. Neurological: Negative for weakness and numbness. Hematological: Negative for adenopathy. Psychiatric/Behavioral: Negative for behavioral problems. All other systems reviewed and are negative. [...] has a past surgical history that includes hx hysterectomy; hx appendectomy; pr esophagogastroduodenoscopy transoral diagnostic (N/A, 03/08/2018); hx tunneled venous catheter placement (Right,09/29/2018); hx tonsillectomy; and hx tunneled venous port placement (Left, 05/11/2019). FAMILY: [...] Other Topics Concern ??? Not on file PROBLEM LIST: Patient has Metabolic syndrome; History of gestational diabetes; Family history of diabetes mellitus; Family history of early CAD; PCOS (polycystic ovarian syndrome); Hypothyroidism; Tobacco use; Type 2 diabetes mellitus without complication, with long-term current use of insulin; Hyponatremia; GERD (gastroesophageal reflux disease); Abdominal pain; Chylomicronemia syndrome; Hypertriglyceridemia;Nausea vomiting and diarrhea; Depression with anxiety; History of plasmapheresis; Mixed hyperlipidemia; History of pancreatitis; Left upper quadrant pain; Acquired hypothyroidism; Recurrent pancreatitis; and Acute on chronic pancreatitis on their problem list. ALLERGIES Green pepper; Adhesive; Aspartame; and Adhesive tape-silicones HOME MEDICATIONS Patient's Home Medications Current Home Medications CITALOPRAM (CELEXA) 40 MG TABLET DICYCLOMINE (BENTYL) 10 MG CAPSULE EMPAGLIFLOZIN (JARDIANCE) 10 MG TABLET FENOFIBRATE (LOFIBRA) 160 MG ORAL TAB INSULIN ASPART (NOVOLOG) 100 UNIT/ML INJECTION INSULIN GLARGINE (LANTUS) 100 UNIT/ML INJECTION LEVOTHYROXINE 200 MCG TABLET LORAZEPAM (ATIVAN) 1 MG TABLET METFORMIN (GLUCOPHAGE) 500 MG TABLET ONDANSETRON (ZOFRAN ODT) 4 MG TABLET, RAPID DISSOLVE OXYCODONE-ACETAMINOPHEN (PERCOCET) 5-325 MG TABLET PANTOPRAZOLE (PROTONIX) 40 MG TABLET, DELAYED RELEASE (E.C.) ROSUVASTATIN (CRESTOR) 20 MG TABLET TRAZODONE (DESYREL) 100 MG TABLET Medications Modified during this Encounter Medications Discontinued during this Encounter Objective PHYSICAL EXAM INITIAL VS BP: 111/60 (05/23/192201), Heart Rate: 82 bpm (05/23/192201), Resp: 22 (05/23/192201), Pulse: 82(05/23/192201), Temp: 98.2 ??F (36.8 ??C) (05/23/192201), Temp src: Oral (05/23/192201), SpO2: 98 % (05/23/192201), Height: 5' 5 (165.1 cm) (05/23/192201), Weight: 88 kg (194 lb) (05/23/192201), BMI (Calculated): 32.28 (01/25/20 2202) No LMP recorded. Patient has had a hysterectomy. Physical Exam Vitals signs and nursing note reviewed. Constitutional: General: She is not in acute distress. Appearance: She is well-developed. Comments: Uncomfortable HENT: Head: Normocephalic and atraumatic. Cardiovascular: Rate and Rhythm: Normal rate and regular rhythm. Heart sounds: Normal heart sounds. Pulmonary: Effort: Pulmonary effort is normal. Breath sounds: Normal breath sounds. Abdominal: Palpations: Abdomen is soft. There is no mass. Tenderness: There is abdominal tenderness (diffusely throughout). There is no guarding or rebound. Musculoskeletal: Normal range of motion. General: No tenderness. Right lower leg: No edema. Left lower leg: No edema. Comments: No calf pain Skin: General: Skin is warm and dry. Neurological: Mental Status: She is alert and oriented to person, place, and time. Motor: No abnormal muscle tone. DIAGNOSTICS LAB: CBC WITH DIFFERENTIAL - Abnormal Result Value WBC 10.7 (*) RBC 4.33 HEMOGLOBIN 12.9 HEMATOCRIT 38.5 MCV 88.9 MCH 29.8 MCHC 33.5 RDW 14.0 RDW-STDEV 45.9 PLATELETS 288 MPV 9.6 NEUTROPHILS 62 LYMPHOCYTES 30 MONOCYTES 6 EOSINOPHILS 1 BASOPHILS 0 IMMATURE GRANULOCYTES 1 NEUTROPHIL ABSOLUTE 6.63 LYMPHOCYTE ABSOLUTE 3.22 MONOCYTE ABSOLUTE 0.61 EOSINOPHIL ABSOLUTE 0.10 BASOPHILS ABSOLUTE 0.04 IMMATURE GRANULOCYTES ABSOLUTE 0.05 (*) COMPREHENSIVE METABOLIC PANEL - Abnormal SODIUM 135 (*) POTASSIUM 4.2 CHLORIDE 97 (*) CO2 22 CALCIUM 9.7 BUN 12 CREATININE 0.68 GLUCOSE 253 (*) TOTAL PROTEIN 6.8 ALBUMIN 4.6 BILIRUBIN TOTAL 0.2 (*) ALKALINE PHOSPHATASE 74 AST 18 ALT 17 GFR >60 GFR, >60 ANION GAP 16 URINALYSIS WITH REFLEX MICROSCOPIC - Abnormal COLOR UA Pale Yellow CLARITY UA Clear SPECIFIC GRAVITY UA 1.033 PH UA 6.0 LEUKOCYTE ESTERASE UA Negative NITRITE UA Negative PROTEIN UA Negative GLUCOSE UA 3+ (*) KETONES UA Trace (*) UROBILINOGEN UA Normal BILIRUBIN UA Negative BLOOD UA Negative TRIGLYCERIDE - Abnormal TRIGLYCERIDE 1,358 (*) POC GLUCOSE - Abnormal POC GLUCOSE 185 (*) AD OPERATIONS INTERN NAME MONSE MON POC GLUCOSE - Abnormal POC GLUCOSE 214 (*) AD OPERATIONS INTERN NAME MONSE MON POC GLUCOSE - Abnormal POC GLUCOSE 224 (*) AD OPERATIONS INTERN NAME MONSE MON POC GLUCOSE - Abnormal POC GLUCOSE 225 (*) AD OPERATIONS INTERN NAME MONSE MON POC GLUCOSE - Abnormal POC GLUCOSE 201 (*) AD OPERATIONS INTERN NAME CRISELDA ZUNIGA (AMBREEN) LIPASE - Normal LIPASE 42 POC GLUCOSE POC GLUCOSE POC GLUCOSE POC GLUCOSE POC GLUCOSE RADIOLOGY: No orders to display No orders to display EKG: PROCEDURES Procedures MEDICAL DECISION MAKING AND PLAN OF CARE -- On initial encounter, discussed plans for labs. Will give IV fluids, Zofran, and Morphine. She understands and agrees with the plan. ED provider and ED nurse verbally discussed patient plan of care at this time. 1:30 AM: Discussed with Dr. Duque ([facility] Hospitalist) who will admit to Step Down floor. MDM Summary Statement: 43 year old female presents with history of pancreatitis due to high triglycerides presents with pain and nausea. Vitals stable. No peritoneal signs. States she usually gets plasmapheresis and is notdue for few days. CBC and chemistries are normal. Triglycerides are greater than 1000. As we cannotarrange pheresis, will start on D5 and infusion and pain control. Will admit to Step Down for further monitoring and treatment. I have reviewed previous: notes, labs and CT I have reviewed current: labs I have reviewed nursing notes related to past medical history, social history, and review of systems and agree, unless otherwise noted. Consults: hospitalist Medications Administered During the ED Stay from 05/23/2019 2158 to 05/24/2019 0620 Date/Time Order Dose Route Action 05/23/2019 2233 ondansetron (ZOFRAN) 4 mg/2 mL injection 4 mg 4 mg IV Given 05/24/2019 0201 sodium chloride 0.9% infusion 0 IV Stopped 05/24/2019 0108 sodium chloride 0.9% infusion IV New Bag 05/24/2019 0108 morphine 4 mg/mL injection 4 mg 4 mg IV Given 05/24/2019 0108 ondansetron (ZOFRAN) 4 mg/2 mL injection 4 mg 4 mg IV Given 05/24/2019 0446 insulin regular (HUMULIN R,NOVOLIN R) 1 Units/mL in sodium chloride 0.9% infusion 5Units/hr IV Rate Change 05/24/2019 0400 insulin regular (HUMULIN R,NOVOLIN R) 1 Units/mL in sodium chloride 0.9% infusion 6Units/hr IV Rate Change 05/24/2019 0357 insulin regular (HUMULIN R,NOVOLIN R) 1 Units/mL in sodium chloride 0.9% infusion 3Units/hr IV Rate Change 05/24/2019 0304 insulin regular (HUMULIN R,NOVOLIN R) 1 Units/mL in sodium chloride 0.9% infusion 2Units/hr IV New Bag 05/24/2019 0144 dextrose 5% - sodium chloride 0.45% infusion IV New Bag 05/24/2019 0450 HYDROmorphone (DILAUDID) 2 mg/mL injection 0.5 mg 0.5 mg IV Given 05/24/2019 0150 HYDROmorphone (DILAUDID) 2 mg/mL injection 0.5 mg 0.5 mg IV Given . New Prescriptions for this Encounter LAST VS BP: 111/67 (05/24/19444), Heart Rate: 85 bpm (05/24/19444), Resp: 18 (05/24/19444), Pulse: 86(05/24/19444), Temp: 98.2 ??F (36.8 ??C) (05/23/192201), Temp src: Oral (05/23/192201), SpO2: 92 % (05/24/19444) CLINICAL IMPRESSION Final diagnoses: [R10.84] Generalized abdominal pain (Primary) [E78.1] Hypertriglyceridemia DISPOSITION, EDUCATION AND MEDICATION RECONCILIATION Medications reconciled. See after visit summary for patient education on discharged patients. ED Disposition ED Disposition Condition User Date/Time Comment Admit Stable Nahed Vivar MD Sun May 24, 2019 1:34 AM ATTESTATION STATEMENTS This note has been prepared by Martha Moffett acting as a scribe for Dr. Nahed Vivar on 05/24/2019 at 5:48 AM. The scribe's documentation has been prepared under my direction and personally reviewed by me, Nahed Vivar MD, in its entirety on 05/24/19 at 6:20 AM. I confirm that the note above accurately reflects all work, treatment, procedures, and medical decision making performed by me. COMMODITY BUYER documented in this encounter Miscellaneous Notes * Care Plan - Puja Holden LMSW - 05/25/2019 11:07 AM CST Clinical documentation reviewed. Comprehensive Discharge Planning Risk Assessment was completed. Readmission Risk (patient becomes high risk with a score of 8 or greater) 5 Total Score (Last filed: May 25, 2019 0600) 5 Prior Hospitalizations Total Score of 9 or below does not identify immediate needs for discharge. Age Score: 0 Disability Score: 0 Prior Living Status Score: {0 Mobility Limitation Score: 0 TOTAL SCORE: [address] consult if needs for discharge are identified. Care Management will continue to follow for discharge planning. LOBO Reyes, DACIA [phone] Day 1 - Current ([place] [facility]: Adult and Obstetrics) Patient, family, or healthcare designee is participating in individual care plan process Outcome: Met Problem: Discharge Planning Goal: Identify discharge needs upon admission and through discharge Description Outcome: Progressing COMMODITY BUYER documented in this encounter Plan of Treatment Upcoming Encounters Date Type Department Care Team (Late st Contact Info) Description 09/14/2024 3:00 PM CDT Office Visit [facility] [id number] [place] [address] Marlys Mayer MD [address] [place] [address] documented as of this encounter Procedures Procedure Name Priority Date/Time Associated Diagnosis Comments POC GLUCOSE Routine 05/25/2019 1:40 PM ANY COMMODITY BUYER POC GLUCOSE Routine 05/25/2019 9:25 AM ANY COMMODITY BUYER TRIGLYCERIDE Routine 05/25/2019 5:18 AM ANY COMMODITY BUYER POC GLUCOSE Routine 05/24/2019 8:23 PM ANY COMMODITY BUYER POC GLUCOSE Routine 05/24/2019 3:59 PM ANY COMMODITY BUYER BASIC METABOLIC PANEL Stat 05/24/2019 2:58 PM ANY COMMODITY BUYER POC GLUCOSE Stat 05/24/2019 11:28 AM ANY COMMODITY BUYER CBC WITH DIFFERENTIAL Stat 05/24/2019 10:45 AM ANY COMMODITY BUYER Hypertriglyceridem ia TYPE AND SCREEN Stat 05/24/2019 10:45 AM ANY COMMODITY BUYER PTT Stat 05/24/2019 10:30 AM ANY COMMODITY BUYER PROTIME-INR Stat 05/24/2019 10:30 AM ANY COMMODITY BUYER BASIC METABOLIC PANEL Stat 05/24/2019 10:30 AM ANY COMMODITY BUYER POC GLUCOSE Stat 05/24/2019 10:16 AM ANY COMMODITY BUYER POC GLUCOSE Stat 05/24/2019 9:09 AM ANY COMMODITY BUYER POC GLUCOSE Stat 05/24/2019 8:03 AM ANY COMMODITY BUYER POC GLUCOSE Stat 05/24/2019 7:16 AM ANY COMMODITY BUYER BASIC METABOLIC PANEL Stat 05/24/2019 6:57 AM ANY COMMODITY BUYER POC GLUCOSE Stat 05/24/2019 6:10 AM ANY COMMODITY BUYER POC GLUCOSE Stat 05/24/2019 4:45 AM ANY COMMODITY BUYER POC GLUCOSE Stat 05/24/2019 3:54 AM ANY COMMODITY BUYER POC GLUCOSE Stat 05/24/2019 2:56 AM ANY COMMODITY BUYER POC GLUCOSE Stat 05/24/2019 1:52 AM ANY COMMODITY BUYER TRIGLYCERIDE Stat 05/24/2019 1:09 AM ANY COMMODITY BUYER URINALYSIS W/REFLEX MICROSCOPIC Stat 05/23/2019 10:33 PM ANY COMMODITY BUYER CBC WITH DIFFERENTIAL Stat 05/23/2019 10:30 PM ANY COMMODITY BUYER LIPASE Stat 05/23/2019 10:30 PM ANY COMMODITY BUYER COMPREHENSIVE METABOLIC PANEL Stat 05/23/2019 10:30 PM ANY COMMODITY BUYER documented in this encounter Results * (ABNORMAL) POC GLUCOSE (05/25/2019 1:40 PM ANY COMMODITY BUYER) GLUCOSE POC 174(H) 74 - 99 mg/dL 05/25/2019 1:40 PM ANY COMMODITY BUYER [facility] AD OPERATIONS INTERN NAME OLLIE NARVAEZ, (pn - JOSH ), [facility] 05/25/2019 1:40 PM ANY COMMODITY BUYER [facility] Blood, whole 05/25/2019 1:40 PM ANY COMMODITY BUYER 05/25/2019 1:47 PM ANY COMMODITY BUYER Parviz Sanabria MD POINT OF CARE T ESTING Performing Organization Address City/[facility]/ZIP Co de Phone Number [facility]# [id number] [address] [place] [address] * (ABNORMAL) POC GLUCOSE (05/25/2019 9:25 AM ANY COMMODITY BUYER) GLUCOSE POC 153(H) 74 - 99 mg/dL 05/25/2019 9:25 AM ANY COMMODITY BUYER [facility] AD OPERATIONS INTERN NAME OLLIE NARVAEZ, (pn - JOSH ), [facility] 05/25/2019 9:25 AM ANY COMMODITY BUYER [facility] Blood, whole 05/25/2019 9:25 AM ANY COMMODITY BUYER 05/25/2019 9:41 AM ANY COMMODITY BUYER Parviz Sanabria MD POINT OF CARE T ESTING [facility]# [id number] [address] [place] [address] * (ABNORMAL) TRIGLYCERIDE (05/25/2019 5:18 AM ANY COMMODITY BUYER) TRIGLYCERIDE 419(H) <150 mg/dL 05/25/2019 6:17 AM ANY COMMODITY BUYER [facility] [employer] [facility] Blood Venipuncture / Unknown 05/25/2019 5:18 AM ANY COMMODITY BUYER 05/25/2019 5:44 AM ANY COMMODITY BUYER Narrative [facility] - 05/25/2019 6:17 AM ANY COMMODITY BUYER TRIGLYCERIDES ? mg/dL Normal ?< 150 Borderline High ?150 - 199 High ? 200 - 499 Very High ? >= 500 Based on AHA/NCEP Guidelines. Parviz Sanabria MD CHEMISTRY ORDER OSVALDO Performing Organization Address [facility]/ZIP Co de Phone Number [facility]# [id number] [address] [place] [address] * (ABNORMAL) POC GLUCOSE (05/24/2019 8:23 PM ANY COMMODITY BUYER) GLUCOSE POC 240(H) 74 - 99 mg/dL 05/24/2019 8:23 PM ANY COMMODITY BUYER [facility] AD OPERATIONS INTERN NAME POC LORNA DESIREE 05/24/2019 8:23 PM ANY COMMODITY BUYER [facility] [employer] [facility] Blood, whole 05/24/2019 8:23 PM ANY COMMODITY BUYER 05/24/2019 9:11 PM ANY COMMODITY BUYER Maco Duque MD POINT OF CARE TESTI NG Performing Organization Address [facility]/ZIP Co de Phone Number [facility]# [id number] [address] [place] [address] * (ABNORMAL) POC GLUCOSE (05/24/2019 3:59 PM ANY COMMODITY BUYER) GLUCOSE POC 136(H) 74 - 99 mg/dL 05/24/2019 3:59 PM ANY COMMODITY BUYER [facility] AD OPERATIONS INTERN NAME POC NINA BARBER 05/24/2019 3:59 PM ANY COMMODITY BUYER [facility] [employer] [facility] Blood, whole 05/24/2019 3:59 PM ANY COMMODITY BUYER 05/24/2019 4:06 PM ANY COMMODITY BUYER Maco Duque MD POINT OF CARE TESTI NG [facility] CLIA# [id number] [address] [facility] [address] [place] [address] * (ABNORMAL) BASIC METABOLIC PANEL (05/24/2019 2:58 PM ANY COMMODITY BUYER) SODIUM 139 136 - 145 mmol/L 05/24/2019 3:33 PM [facility] POTASSIUM 4.3 3.5 - 5.0 mmol/L 05/24/2019 3:33 PM [facility] [employer] [facility] CHLORIDE 105 98 - 107 mmol/L 05/24/2019 3:33 PM [facility] [employer] [facility] CO2 24 22 - 29 mmol/L 05/24/2019 3:33 PM [facility] CALCIUM 8.2(L) 8.6 - 10.2 mg/dL 05/24/2019 3:33 PM [facility] [employer] [facility] BUN 11 6 - 20 mg/dL 05/24/2019 3:33 PM [facility] [employer] [facility] CREATININE 0.60 0.51 - 0.95 mg/dL 05/24/2019 3:33 PM [facility] [employer] [facility] GLUCOSE 150(H) 74 - 99 mg/dL 05/24/2019 3:33 PM [facility] GFR >60 >=60 mL/min/1.7 3 sq meter 05/24/2019 3:33 PM [facility] [employer] LABORATORY SERVICES - [facility] Comment: eGFR has not been [...] GFR, >60 >=60 mL/min/1.7 3 sq meter 05/24/2019 3:33 PM ANY COMMODITY BUYER [facility] - [facility] ANION GAP 10 8 - 16 mmol/L 05/24/2019 3:33 PM ANY COMMODITY BUYER [facility] Blood Venipuncture / Unknown 05/24/2019 2:58 PM ANY COMMODITY BUYER 05/24/2019 3:08 PM ANY COMMODITY BUYER Maco Duque MD CHEMISTRY ORDERABLE S Performing Organization Address [facility]/ZIP Co de Phone Number [facility] [employer] [facility] CLIA# [id number] [address] [place] [address] * (ABNORMAL) POC GLUCOSE (05/24/2019 11:28 AM ANY COMMODITY BUYER) Pathologist [facility] GLUCOSE POC 117(H) 74 - 99 mg/dL 05/24/2019 11:28 AM [facility] COMMENT, GLU POC Notified RN/MD 05/24/2019 11:28 AM [facility] [employer] LABORATORY SERVICES [facility] AD OPERATIONS INTERN NAME POC DEISY MUSA 05/24/2019 11:28 AM [facility] [employer] LABORATORY SERVICES - [facility] Blood, whole 05/24/2019 11:2 8 AM ANY COMMODITY BUYER 05/24/2019 11:35 AM ANY COMMODITY BUYER Parviz Sanabria MD POINT OF CARE T ESTING Performing Organization Address [facility]/ZIP Co de Phone Number [facility] [employer] [facility] CLIA# [id number] [address] [place] [address] * TYPE AND SCREEN (05/24/2019 10:45 AM ANY COMMODITY BUYER) ABO GROUP B 05/24/2019 12:17 PM ANY COMMODITY BUYER [facility] -- [facility] RH (D) TYPE Positive 05/24/2019 12:17 PM ANY COMMODITY BUYER [facility] -- [facility] ANTIBODY SCREEN Negative 05/24/2019 12:17 PM ANY COMMODITY BUYER [facility] Blood Venipuncture / Unknown 05/24/2019 10:45 AM ANY COMMODITY BUYER 05/24/2019 10:49 AM ANY COMMODITY BUYER Parviz Sanabria MD BLOOD BANK YONI SERRANO [facility] -- [facility] CLIA# [id number] [address] [facility] [place] [address] * (ABNORMAL) CBC WITH DIFFERENTIAL (05/24/2019 10:45 AM ANY COMMODITY BUYER) WBC 8.7 4.0 - 9.8 K/uL 05/24/2019 11:07 AM FND SERVICES - [facility] RBC 3.82(L) 3.90 - 4.90 M/uL 05/24/2019 11:07 AM [facility] - . [facility] HEMOGLOBIN 11.2(L) 11.8 - 14.8 g/dL 05/24/2019 11:07 AM [facility] - [facility] HEMATOCRIT 34.8(L) 35.5 - 44.0 % 05/24/2019 11:07 AM [facility] - [facility] MCV 91.1 82.0 - 99.0 fL 05/24/2019 11:07 AM [facility] - [facility] MCH 29.3 27.2 - 32.6 pg 05/24/2019 11:07 AM [facility] - . [facility] MCHC 32.2 31.5 - 35.5 g/dL 05/24/2019 11:07 AM [facility] RDW 14.2 11.5 - 14.5 % 05/24/2019 11:07 AM [facility] - [facility] RDW-STDEV 47.5 37.1 - 48.7 fL 05/24/2019 11:07 AM [facility] SERVICES - . [facility] PLATELETS 228 140 - 350 K/uL 05/24/2019 11:07 AM [facility] - [facility] MPV 9.3 9.3 - 12.4 fL 05/24/2019 11:07 AM FND [facility] NEUTROPHILS 54 % 05/24/2019 11:07 AM [facility] [employer] [facility] LYMPHOCYTES 38 % 05/24/2019 11:07 AM [facility] MONOCYTES 7 % 05/24/2019 11:07 AM [facility] EOSINOPHILS 1 % 05/24/2019 11:07 AM [facility] BASOPHILS 0 % 05/24/2019 11:07 AM [facility] IMMATURE GRANULOCYTES 1 % 05/24/2019 11:07 AM [facility] Comment:IG (Immature Granulo cyte) count includes Metamyelocytes, Myelocytes, and Promyelocytes NEUTROPHIL ABSOLUTE 4.64 1.90 - 7.00 K/uL 05/24/2019 11:07 AM [facility] [employer] [facility] LYMPHOCYTE ABSOLUTE 3.29 0.70 - 4.50 K/uL 05/24/2019 11:07 AM [facility] MONOCYTE ABSOLUTE 0.58 0.10 - 1.30 K/uL 05/24/2019 11:07 AM [facility] [employer] [facility] EOSINOPHIL ABSOLUTE 0.09 0.00 - 0.70 K/uL 05/24/2019 11:07 AM [facility] [employer] [facility] BASOPHILS ABSOLUTE 0.03 0.00 - 0.20 K/uL 05/24/2019 11:07 AM [facility] [employer] [facility] IMMATURE GRANULOCYTES ABSOLUTE 0.04(H) 0.00 - 0.03 K/uL 05/24/2019 11:07 AM [facility] [employer] [facility] Blood Venipuncture / Unknown 05/24/2019 10:45 AM ANY COMMODITY BUYER 05/24/2019 10:49 AM ANY COMMODITY BUYER Phoenix Riddle MD HEMATOLOGY ORDERABL ES [facility] CLIA# [id number] [address] [facility] [place] [address] * (ABNORMAL) PROTIME-INR (05/24/2019 10:30 AM ANY COMMODITY BUYER) PROTIME 12.5(L) 12.7 - 15.1 Seconds 05/24/2019 11:34 AM [facility] INR 1.0 0.9 - 1.1 05/24/2019 11:34 AM [facility] Blood Venipuncture / Unknown 05/24/2019 10:30 AM ANY COMMODITY BUYER 05/24/2019 10:33 AM ANY COMMODITY BUYER Narrative [facility] - 05/24/2019 11:34 AM ANY COMMODITY BUYER INR Therapeutic Range: Adult: ?? 2.0 - 3.0 for pulmonary embolism or prophylaxis against venous ?thrombosis or systemic embolization. 2.0 - 3.0 for patients with tissue heart valves. 2.5 - 3.5 for patients with mechanical heart valves or post [place]. Pediatric ??(12 years and under): 1.5 - 3.0 Although the target range in children is not well established, ?INR values of 1.5 - 3.0 are recommended for most patients. ?Higher values have been used in children with prosthetic ?cardiac valves and hereditary clotting disorders. (<3 days) therapeutic ranges have not been established. Parviz Sanabria MD HEMATOLOGY [facility]# [id number] [address] [place] [place] [address] * PTT (05/24/2019 10:30 AM ANY COMMODITY BUYER) PTT 35.8 24.4 - 36.4 seconds 05/24/2019 11:34 AM [facility] Comment: PTT Therapeutic Range: Heparin Level ? PTT (seconds) <0.10 units/mL ? <53 0.10 - 0.30 units/mL ? 53 - 67 0.30 - 0.70 units/mL* ?67 - 95* 0.70 - 1.00 units/mL ? 95 - 116 *corresponds to therapeutic range for unfractionated heparin Blood Venipuncture / Unknown 05/24/2019 10:30 AM ANY COMMODITY BUYER 05/24/2019 10:33 AM ANY COMMODITY BUYER Parviz Sanabria MD HEMATOLOGY YONI SERRANO [facility] [employer] SERVICES [facility]# [id number] [address] [place] [address] * (ABNORMAL) BASIC METABOLIC PANEL (05/24/2019 10:30 AM ANY COMMODITY BUYER) SODIUM 140 136 - 145 mmol/L 05/24/2019 11:08 AM [facility] [employer] SERVICES [facility] POTASSIUM 3.6 3.5 - 5.0 mmol/L 05/24/2019 11:08 AM [facility] [employer] [facility] CHLORIDE 104 98 - 107 mmol/L 05/24/2019 11:08 AM [facility] [employer] [facility] CO2 23 22 - 29 mmol/L 05/24/2019 11:08 AM [facility] [employer] [facility] CALCIUM 8.4(L) 8.6 - 10.2 mg/dL 05/24/2019 11:08 AM [facility] [employer] [facility] BUN 12 6 - 20 mg/dL 05/24/2019 11:08 AM [facility] [employer] [facility] CREATININE 0.55 0.51 - 0.95 mg/dL 05/24/2019 11:08 AM [facility] [employer] [facility] GLUCOSE 90 74 - 99 mg/dL 05/24/2019 11:08 AM [facility] [employer] [facility] GFR >60 >=60 mL/min/1.7 3 sq meter 05/24/2019 11:08 AM [facility] [employer] SERVICES [facility] Comment: eGFR has not been validated for [...] GFR, >60 >=60 mL/min/1.7 3 sq meter 05/24/2019 11:08 AM ANY COMMODITY BUYER [facility] LABORATORY [facility] ANION GAP 13 8 - 16 mmol/L 05/24/2019 11:08 AM [facility] LABORATORY [facility] Blood Venipuncture / Unknown 05/24/2019 10:30 AM ANY COMMODITY BUYER 05/24/2019 10:33 AM ANY COMMODITY BUYER Maco Duque MD CHEMISTRY ORDERABLE S Performing Organization Address City/[facility]/ZIP Co de Phone Number [facility] [employer] [facility]# [id number] [address] [place] [address] * POC GLUCOSE (05/24/2019 10:16 AM ANY COMMODITY BUYER) GLUCOSE POC 78 74 - 99 mg/dL 05/24/2019 10:16 AM [facility] LABORATORY [facility] AD OPERATIONS INTERN NAME POC JOSE DANIEL TA 05/24/2019 10:16 AM [facility] LABORATORY [facility] Blood, whole 05/24/2019 10:1 6 AM ANY COMMODITY BUYER 05/24/2019 10:23 AM ANY COMMODITY BUYER Parviz Sanabria MD POINT OF CARE T ESTING Performing Organization Address [facility]/ZIP Co de Phone Number [facility]# [id number] [address] [place] [address] * (ABNORMAL) POC GLUCOSE (05/24/2019 9:09 AM ANY COMMODITY BUYER) GLUCOSE POC 114(H) 74 - 99 mg/dL 05/24/2019 9:09 AM ANY COMMODITY BUYER [facility] LABORATORY SERVICES [facility] COMMENT, GLU POC Notified RN/MD 05/24/2019 9:09 AM ANY COMMODITY BUYER [facility] LABORATORY SERVICES [facility] AD OPERATIONS INTERN NAME POC DEISY MUSA 05/24/2019 9:09 AM ANY COMMODITY BUYER [facility] LABORATORY SERVICES [facility] Blood, whole 05/24/2019 9:09 AM ANY COMMODITY BUYER 05/24/2019 9:16 AM ANY COMMODITY BUYER Nahed Vivar MD POINT OF CARE TESTIN G Performing Organization Address City/[facility]/ZIP Co de Phone Number [facility] LABORATORY [facility] CLIA# [id number] [address] [place] [address] * (ABNORMAL) POC GLUCOSE (05/24/2019 8:03 AM ANY COMMODITY BUYER) GLUCOSE POC 153(H) 74 - 99 mg/dL 05/24/2019 8:03 AM ANY COMMODITY BUYER [facility] LABOR[facility] SERVICES [facility] AD OPERATIONS INTERN NAME POC JOSE DANIEL TA 05/24/2019 8:03 AM ANY COMMODITY BUYER [employer] LABORATORY SERVICES [facility] Blood, whole 05/24/2019 8:03 AM ANY COMMODITY BUYER 05/24/2019 8:09 AM ANY COMMODITY BUYER Nahed Vivar MD POINT OF CARE TESTJERONIMO G [facility] LABORATORY [facility] CLIA# [id number] [address] [place] [address] * (ABNORMAL) POC GLUCOSE (05/24/2019 7:16 AM ANY COMMODITY BUYER) GLUCOSE POC 153(H) 74 - 99 mg/dL 05/24/2019 7:16 AM ANY COMMODITY BUYER [facility] LABORATORY SERVICES [facility] AD OPERATIONS INTERN NAME POC GENIA SMILEY 05/24/2019 7:16 AM ANY COMMODITY BUYER [facility] LAB[facility] SERVICES [facility] Blood, whole 05/24/2019 7:16 AM ANY COMMODITY BUYER 05/24/2019 7:25 AM ANY COMMODITY BUYER Nahed Vivar MD POINT OF CARE TESTIN G [facility] [employer] [facility]# [id number] [address] [place] [address] * (ABNORMAL) BASIC METABOLIC PANEL (05/24/2019 6:57 AM ANY COMMODITY BUYER) SODIUM 137 136 - 145 mmol/L 05/24/2019 7:43 AM [facility] [employer] [facility] POTASSIUM 3.6 3.5 - 5.0 mmol/L 05/24/2019 7:43 AM [facility] [employer] [facility] CHLORIDE 101 98 - 107 mmol/L 05/24/2019 7:43 AM [facility] [employer] [facility] CO2 24 22 - 29 mmol/L 05/24/2019 7:43 AM [facility] [employer] [facility] CALCIUM 8.5(L) 8.6 - 10.2 mg/dL 05/24/2019 7:43 AM [facility] [employer] [facility] BUN 12 6 - 20 mg/dL 05/24/2019 7:43 AM [facility] [employer] [facility] CREATININE 0.64 0.51 - 0.95 mg/dL 05/24/2019 7:43 AM [facility] [employer] [facility] GLUCOSE 194(H) 74 - 99 mg/dL 05/24/2019 7:43 AM [facility] [employer] [facility] GFR >60 >=60 mL/min/1.7 3 sq meter 05/24/2019 7:43 AM [facility] [employer] [facility] Comment: eGFR has not [...] GFR, >60 >=60 mL/min/1.7 3 sq meter 05/24/2019 7:43 AM ANY COMMODITY BUYER [facility] LABORATORY [facility] ANION GAP 12 8 - 16 mmol/L 05/24/2019 7:43 AM ANY COMMODITY BUYER [facility] LABORATORY [facility] Blood Venipuncture / Unknown 05/24/2019 6:57 AM ANY COMMODITY BUYER 05/24/2019 7:02 AM ANY COMMODITY BUYER Maco Duque MD CHEMISTRY ORDERABLE S Performing Organization Address [facility]/ZIP Co de Phone Number [facility]# [id number] [address] [place], [place] [address] * (ABNORMAL) POC GLUCOSE (05/24/2019 6:10 AM ANY COMMODITY BUYER) GLUCOSE POC 201(H) 74 - 99 mg/dL 05/24/2019 6:10 AM ANY COMMODITY BUYER [facility] LABORATORY [facility] AD OPERATIONS INTERN NAME POC CRISELDA ZUNIGA (AMBREEN) 05/24/2019 6:10 AM ANY COMMODITY BUYER [facility] LABORATORY [facility] Blood, whole 05/24/2019 6:10 AM ANY COMMODITY BUYER 05/24/2019 6:18 AM ANY COMMODITY BUYER Nahed Vivar MD POINT OF CARE TESTJERONIMO Serrano Performing Organization Address [facility] Phone Number [facility] [id number] [address] [place], [place] [address] * (ABNORMAL) POC GLUCOSE (05/24/2019 4:45 AM ANY COMMODITY BUYER) GLUCOSE POC 225(H) 74 - 99 mg/dL 05/24/2019 4:45 AM ANY COMMODITY BUYER [facility] LABORATORY [facility] AD OPERATIONS INTERN NAME POC MONSE 05/24/2019 4:45 AM ANY COMMODITY BUYER [facility] LABORATORY [facility] Blood, whole 05/24/2019 4:45 AM ANY COMMODITY BUYER 05/24/2019 4:58 AM ANY COMMODITY BUYER Nahed Vivar MD POINT OF CARE TESTJERONIMO Serrano Performing Organization Address [facility]/State/ZIP Co de Phone Number [facility] [employer] [facility] CLIA# [id number] [address] [place] [address] * (ABNORMAL) POC GLUCOSE (05/24/2019 3:54 AM ANY COMMODITY BUYER) GLUCOSE POC 224(H) 74 - 99 mg/dL 05/24/2019 3:54 AM ANY COMMODITY BUYER [facility] LABORATORY [facility] AD OPERATIONS INTERN NAME MONSE BARAHONA 05/24/2019 3:54 AM ANY COMMODITY BUYER [facility] LABORATORY SERVICES [facility] Blood, whole 05/24/2019 3:54 AM ANY COMMODITY BUYER 05/24/2019 4:06 AM ANY COMMODITY BUYER Nahed Vviar MD POINT OF CARE TESTIN Maggie Performing Organization Address [facility]/ZIP Co de Phone Number [facility] [employer] [facility] CLIA# [id number] [address] [place] [address] * (ABNORMAL) POC GLUCOSE (05/24/2019 2:56 AM ANY COMMODITY BUYER) GLUCOSE POC 214(H) 74 - 99 mg/dL 05/24/2019 2:56 AM ANY COMMODITY BUYER [facility] LABORATORY [facility] AD OPERATIONS INTERN NAME MONSE BARAHONA 05/24/2019 2:56 AM ANY COMMODITY BUYER [facility] LABORATORY [facility] Blood, whole 05/24/2019 2:56 AM ANY COMMODITY BUYER 05/24/2019 3:04 AM ANY COMMODITY BUYER Nahed Vivar MD POINT OF CARE TESTIN G [facility] [employer] [facility] CLIA# [id number] [address] [place] [address] * (ABNORMAL) POC GLUCOSE (05/24/2019 1:52 AM ANY COMMODITY BUYER) GLUCOSE POC 185(H) 74 - 99 mg/dL 05/24/2019 1:52 AM ANY COMMODITY BUYER [facility] LABORATORY [facility] AD OPERATIONS INTERN NAME MONSE BARAHONA 05/24/2019 1:52 AM ANY COMMODITY BUYER [facility] [employer] [facility] Blood, whole 05/24/2019 1:52 AM ANY COMMODITY BUYER 05/24/2019 2:00 AM ANY COMMODITY BUYER Nahed Vivar MD POINT OF CARE TESTIN G Performing Organization Address [facility] de Phone Number [facility] [employer] [facility]# [id number] [address] [place] [address] * (ABNORMAL) TRIGLYCERIDE (05/24/2019 1:09 AM ANY COMMODITY BUYER) TRIGLYCERIDE 1,358(H) <150 mg/dL 05/24/2019 2:01 AM ANY COMMODITY BUYER [facility] [employer] [facility] Blood Venipuncture / Unknown 05/24/2019 1:09 AM ANY COMMODITY BUYER 05/24/2019 1:22 AM ANY COMMODITY BUYER Narrative [facility] [employer] [facility] - 05/24/2019 2:01 AM ANY COMMODITY BUYER TRIGLYCERIDES ? mg/dL Normal ?< 150 Borderline High ?150 - 199 High ? 200 - 499 Very High ? >= 500 Based on AHA/NCEP Guidelines. Nahed Vivar MD CHEMISTRY ORDERABLES Performing Organization Address [facility] de Phone Number [facility] [employer] [facility]# [id number] [address] [place] [address] * (ABNORMAL) URINALYSIS WITH REFLEX MICROSCOPIC (05/23/2019 10:33 PM ANY COMMODITY BUYER) COLOR UA Pale Yellow Pale to Dark Yellow 05/23/2019 11:19 PM [facility] CLARITY UA Clear Clear 05/23/2019 11:19 PM ANY COMMODITY BUYER [facility] LABORATORY [facility] SPECIFIC GRAVITY UA 1.033 1.003 - 1.035 05/23/2019 11:19 PM ANY COMMODITY BUYER [facility] PH UA 6.0 5.0 - 8.0 05/23/2019 11:19 PM ANY COMMODITY BUYER [employer] LABORATORY SERVICES [facility] LEUKOCYTE ESTERASE UA Negative Negative 05/23/2019 11:19 PM ANY COMMODITY BUYER [employer] LABORATORY SERVICES - [facility] NITRITE UA Negative Negative 05/23/2019 11:19 PM ANY COMMODITY BUYER [employer] LABORATORY SERVICES [facility] PROTEIN UA Negative Negative 05/23/2019 11:19 PM ANY COMMODITY BUYER [employer] LABORATORY SERVICES - [facility] GLUCOSE UA 3+(A) Negative 05/23/2019 11:19 PM ANY COMMODITY BUYER [employer] LABORATORY SERVICES [facility] KETONES UA Trace(A) Negative 05/23/2019 11:19 PM ANY COMMODITY BUYER [employer] [facility]ORATORY SERVICES [facility] UROBILINOGEN UA Normal <2.0 mg/dL 0 11:19 PM ANY COMMODITY BUYER [employer] [facility]ATORY SERVICES - [facility] BILIRUBIN UA Negative Negative 05/23/2019 11:19 PM ANY COMMODITY BUYER [employer] LABORATORY SERVICES - [facility] BLOOD UA Negative Negative 05/23/2019 11:19 PM ANY COMMODITY BUYER [employer] LABORATORY SERVICES - [facility] Urine URINE SPECIMEN OBTAINED BY CLEAN CATCH PROCEDURE / Unknown Collection / Unknown 05/23/2019 10:33 PM ANY COMMODITY BUYER 05/23/2019 11:09 PM ANY COMMODITY BUYER Nahed Vivar MD URINE ORDERABLES [facility] LABORATORY [facility] CLIA# [id number] [address] [place] [address] * LIPASE (05/23/2019 10:30 PM ANY COMMODITY BUYER) LIPASE 42 13 - 60 U/L 05/23/2019 11:27 PM ANY COMMODITY BUYER [employer] LABORATORY SERVICES [facility] Blood Venipuncture / Unknown 05/23/2019 10:30 PM ANY COMMODITY BUYER 05/23/2019 10:35 PM ANY COMMODITY BUYER Nahed Vivar MD CHEMISTRY ORDERABLES [facility] LABORATORY [facility] CLIA# [id number] [address] [place] [address] * (ABNORMAL) COMPREHENSIVE METABOLIC PANEL (05/23/2019 10:30 PM [facility]) SODIUM 135(L) 136 - 145 mmol/L 05/24/2019 12:17 AM [facility] [employer] LABORATORY [facility] POTASSIUM 4.2 3.5 - 5.0 mmol/L 05/24/2019 12:17 AM [facility] [employer] LABORATORY [facility] CHLORIDE 97(L) 98 - 107 mmol/L 05/24/2019 12:17 AM [facility] [employer] [facility] CO2 22 22 - 29 mmol/L 05/24/2019 12:17 AM [facility] [employer] [facility] CALCIUM 9.7 8.6 - 10.2 mg/dL 05/24/2019 12:17 AM [facility] [employer] [facility] BUN 12 6 - 20 mg/dL 05/24/2019 12:17 AM [facility] [employer] [facility] CREATININE 0.68 0.51 - 0.95 mg/dL 05/24/2019 12:17 AM [facility] [employer] [facility] GLUCOSE 253(H) 74 - 99 mg/dL 05/24/2019 12:17 AM [facility] [employer] [facility] TOTAL PROTEIN 6.8 6.7 - 8.6 g/dL 05/24/2019 12:17 AM [facility] [employer] [facility] ALBUMIN 4.6 3.5 - 5.2 g/dL 05/24/2019 12:17 AM [facility] [employer] [facility] BILIRUBIN TOTAL 0.2(L) 0.3 - 1.2 mg/dL 05/24/2019 12:17 AM [facility] [employer] [facility] ALKALINE PHOSPHATASE 74 35 - 104 U/L 05/24/2019 12:17 AM ANY COMMODITY BUYER [employer] [facility] AST 18 <33 U/L 05/24/2019 12:17 AM [facility] [employer] LABORATORY [facility] Comment: Hemolysis present. ??Result may be falsely elevated. Grossly lipemic. Cleared of chylomicrons. ALT 17 <34 U/L 05/24/2019 12:17 AM [facility] [employer] LABORATORY [facility] Comment: Grossly lipemic. Cleared of chylomicrons. GFR >60 >=60 mL/min/1.7 3 sq meter 05/24/2019 12:17 AM [facility] [employer] [facility] Comment: eGFR has not [...] GFR, >60 >=60 mL/min/1.7 3 sq meter 05/24/2019 12:17 AM [facility] [employer] [facility] ANION GAP 16 8 - 16 mmol/L 05/24/2019 12:17 AM [facility] [employer] [facility] Blood Venipuncture / Unknown 05/23/2019 10:30 PM ANY COMMODITY BUYER 05/23/2019 10:[address] [facility] [employer] [facility] - 05/24/2019 12:17 AM ANY COMMODITY BUYER Samples containing indocyanine green cause interferences on Total and/or Direct Bilirubin and must not be measured. Nahed Vivar MD CHEMISTRY ORDERABLES [facility] [employer] [facility]# [id number] [address] [facility] [place] [place] [address] * (ABNORMAL) CBC WITH DIFFERENTIAL (05/23/2019 10:30 PM ANY COMMODITY [employer]) WBC 10.7(H) 4.0 - 9.8 K/uL 05/23/2019 11:08 PM [facility] [employer] [facility] RBC 4.33 3.90 - 4.90 M/uL 05/23/2019 11:08 PM [facility] [employer] [facility] HEMOGLOBIN 12.9 11.8 - 14.8 g/dL 05/23/2019 11:08 PM [facility] [employer] [facility] HEMATOCRIT 38.5 35.5 - 44.0 % 05/23/2019 11:08 PM [facility] [employer] [facility] MCV 88.9 82.0 - 99.0 fL 05/23/2019 11:08 PM ANY COMMODITY BU[employer]ER [facility] [facility] MCH 29.8 27.2 - 32.6 pg 05/23/2019 11:08 PM ANY COMMODITY [employer] [facility] [facility] MCHC 33.5 31.5 - 35.5 g/dL 05/23/2019 11:08 PM ANY COMMODITY [employer] [facility] [facility] RDW 14.0 11.5 - 14.5 % 05/23/2019 11:08 PM ANY COMM[employer]ITY [employer] [facility] [facility] RDW-STDEV 45.9 37.1 - 48.7 fL 05/23/2019 11:08 PM ANY COMMODITY [employer]ER [facility] [facility] PLATELETS 288 140 - 350 K/uL 05/23/2019 11:08 PM [employer] [facility] MPV 9.6 9.3 - 12.4 fL 05/23/2019 11:08 PM ANY COMMODITY [employer] [facility] NEUTROPHILS 62 % 05/23/2019 11:08 PM [employer] [facility] LYMPHOCYTES 30 % 05/23/2019 11:08 PM [employer] [facility] MONOCYTES 6 % 05/23/2019 11:08 PM [facility] [facility] EOSINOPHILS 1 % 05/23/2019 11:08 PM [employer] [facility] BASOPHILS 0 % 05/23/2019 11:08 PM [employer] [facility] IMMATURE GRANULOCYTES 1 % 05/23/2019 11:08 PM [employer] [facility] - . [facility] Comment:IG (Immature Granulo cyte) count includes Metamyelocytes, Myelocytes, and Promyelocytes NEUTROPHIL ABSOLUTE 6.63 1.90 - 7.00 K/uL 05/23/2019 11:08 PM ANY COMMODITY BUYER [facility] - . [facility] LYMPHOCYTE ABSOLUTE 3.22 0.70 - 4.50 K/uL 05/23/2019 11:08 PM ANY COMMODITY BUYER [facility] - . [facility] MONOCYTE ABSOLUTE 0.61 0.10 - 1.30 K/uL 05/23/2019 11:08 PM [facility] - . [facility] EOSINOPHIL ABSOLUTE 0.10 0.00 - 0.70 K/uL 05/23/2019 11:08 PM ANY COMMODITY BUYER [facility] - . [facility] BASOPHILS ABSOLUTE 0.04 0.00 - 0.20 K/uL 05/23/2019 11:08 PM ANY COMMODITY BUYER [facility] IMMATURE GRANULOCYTES ABSOLUTE 0.05(H) 0.00 - 0.03 K/uL 05/23/2019 11:08 PM ANY COMMODITY BUYER [facility] Blood Venipuncture / Unknown 05/23/2019 10:30 PM ANY COMMODITY BUYER 05/23/2019 10:35 PM ANY COMMODITY BUYER Nahed Vivar MD HEMATOLOGY ORDERABLE S [facility] CLIA# [id number] [address] [place] [address] documented in this encounter Visit Diagnoses Diagnosis Acute on chronic pancreatitis- Primary Generalized abdominal pain Abdominal pain, generalized Hypertriglyceridemia Pure hyperglyceridemia Type 2 diabetes mellitus without complication, with long-term current use of insulin Hypertriglyceridemia Pure hyperglyceridemia Acquired hypothyroidism Unspecified hypothyroidism documented in this encounter Administered Medications Inactive Administered Medications - up to 3 most recent administrations Medication Order MAR Action Action Date Dose Rate Site atorvastatin (LIPITOR) tablet 80 mg 80 mg, Oral, DAILY AT BEDTIME, First dose on 05/24/19 at 2100, Until Discontinued, Routine Given 05/24/2019 8:14 PM ANY COMMODITY BUYER 80 mg calcium GLUCONATE 2,000 mg in sodium chloride 0.9% 120 mL IVPB 2,000 mg, IV, INTRA-PROCEDURE ONCE, 1 dose, Starting on 05/24/19 at 1407, Until 05/24/19 at 1725, Routine, Intra-Procedure New Bag 05/24/2019 4:34 PM ANY COMMODITY BUYER 2,000 mg 240 mL/hr citalopram (CeleXA) tablet 40 mg 40 mg, Oral, DAILY AT BEDTIME, First dose on 05/24/19 at 2100, Until Discontinued, Routine Given 05/24/2019 8:16 PM ANY COMMODITY BUYER 40 mg dextrose 5% - sodium chloride 0.45% infusion IV, at 150 mL/hr, CONTINUOUS, Starting on 05/24/19 at 0130, Until 05/24/19 at 1022, Routine Rate Change 05/24/2019 9:15 AM ANY COMMODITY BUYER 250 mL /hr New Bag 05/24/2019 8:44 AM ANY COMMODITY BUYER 150 mL/hr New Bag 05/24/2019 1:44 AM ANY COMMODITY BUYER 150 mL/hr dextrose 5% - sodium chloride 0.9% infusion IV, at 40 mL/hr, SEE ADMIN INSTRUCTIONS, Starting on Sat05/24/19 at 1543, Until Sat05/25/19 at 1922, Routine dextrose 50% (D50) syringe 12.5 Gram 12.5 Gram, IV, SEE ADMIN INSTRUCTIONS, Starting on Sat05/24/19 at 1543, Until Sat05/25/19 at 1922, Routine dextrose 50% (D50) syringe 25 Gram 25 Gram, IV, SEE ADMIN INSTRUCTIONS, Starting on Sat05/24/19 at 1543, Until Sat05/25/19 at 1922, Routine fenofibrate (LOFIBRA) tablet 160 mg 160 mg, Oral, DAILY, First dose on Sat05/25/19 at 0900, Until Discontinued, Routine Given 05/25/2019 9:25 AM ANY COMMODITY BUYER 160 mg glucagon HCl 1 mg injection 1 mg 1 mg, IM, SEE ADMIN INSTRUCTIONS, Starting on Sat05/24/19 at 1543, Until Sat05/25/19 at 1922, Routine heparin injection 2,000 Units 2,000 Units, Dwell, ONE TIME ONLY, 1 dose, On Sat05/24/19 at 1515, Routine, Please tube to station [id number], blood bank Given 05/24/2019 5:27 PM ANY COMMODITY BUYER 2,000 Units Chest, Right heparin injection 3,000 Units 3,000 Units, Dwell, ONE TIME ONLY, 1 dose, On Sat05/24/19 at 1515, Routine, Please tube to station 516, blood bank Given 05/24/2019 5:28 PM ANY COMMODITY BUYER 3,000 Units Chest, Left HYDROmorphone (DILAUDID) 2 mg/mL injection 0.5 mg 0.5 mg, IV, EVERY 3 HOURS PRN, Starting on Sat05/24/19 at 0137, Until Sat05/24/19 at 1336, Pain (See admin instructions), Routine Given 05/24/2019 11:24 AM ANY COMMODITY BUYER 0.5 mg Given 05/24/2019 8:18 AM ANY COMMODITY BUYER 0.5 mg Given 05/24/2019 4:50 AM ANY COMMODITY BUYER 0.5 mg HYDROmorphone (DILAUDID) 2 mg/mL injection 0.5 mg 0.5 mg, IV, EVERY 2 HOURS PRN, Starting on Sat05/24/19 at 1454, Until Sat05/24/19 at 2153, Pain (See admin instructions), Routine Given 05/24/2019 6:23 PM ANY COMMODITY BUYER 0.5 mg Given 05/24/2019 3:49 PM ANY COMMODITY BUYER 0.5 mg Given 05/24/2019 2:59 PM ANY COMMODITY BUYER 0.5 mg HYDROmorphone (DILAUDID) 2 mg/mL injection 0.5 mg 0.5 mg, IV, EVERY 3 HOURS PRN, Starting on Sat05/24/19 at 2342, Until Sat05/25/19 at 1922, Pain (See admin instructions), Routine insulin lispro (HumaLOG) variable dose injection subCUT, THREE TIMES DAILY WITH MEALS, First dose on Sat05/24/19 at 1700, Until Discontinued, Routine insulin lispro (HumaLOG) variable dose injection subCUT, DAILY AT BEDTIME, First dose on Sat05/24/19 at 2100, Until Discontinued, Routine Given 05/24/2019 8:23 PM ANY COMMODITY BUYER 1 Units Arm, Right Upper insulin regular (HUMULIN R,NOVOLIN R) 1 Units/mL in sodium chloride 0.9% infusion 2 Units/hr (2 mL/hr), IV, CONTINUOUS, Starting on Sat05/24/19 at 0130, Until Sat05/24/19 at 1022 Rate Change 05/24/2019 7:17 AM ANY COMMODITY BUYER 5 Units/hr 5 mL/hr Rate Change 05/24/2019 4:46 AM ANY COMMODITY BUYER 5 Units/hr 5 mL/hr Rate Change 05/24/2019 4:00 AM ANY COMMODITY BUYER 6 Units/hr 6 mL/hr ketorolac (TORADOL) injection 30 mg 30 mg, IV, ONE TIME ONLY, 1 dose, On Sat05/25/19 at 0530, Routine Given 05/25/2019 5:31 AM ANY COMMODITY BUYER 30 mg levothyroxine (SYNTHROID) tablet 200 mcg 200 mcg, Oral, DAILY EARLY, First dose on Sat05/25/19 at 0600, Until Discontinued, Routine Given 05/25/2019 5:23 AM ANY COMMODITY BUYER 200 mcg morphine 4 mg/mL injection 4 mg 4 mg, IV, ONE TIME ONLY, 1 dose, On Sat05/24/19 at 0115, Routine Given 05/24/2019 1:08 AM ANY COMMODITY BUYER 4 mg ondansetron (ZOFRAN) 4 mg/2 mL injection 4 mg 4 mg, IV, ONE TIME ONLY, 1 dose, On 05/23/19 at 2245, Stat Given 05/23/2019 10:33 PM ANY COMMODITY BUYER 4 mg ondansetron (ZOFRAN) 4 mg/2 mL injection 4 mg 4 mg, IV, ONE TIME ONLY, 1 dose, On 05/24/19 at 0115, Routine Given 05/24/2019 1:08 AM ANY COMMODITY BUYER 4 mg ondansetron (ZOFRAN) 4 mg/2 mL injection 4 mg 4 mg, IV, EVERY 6 HOURS PRN, Starting on 05/24/19 at 1033, Until 05/25/19 at 1922, Nausea/Emesis, Routine Given 05/24/2019 3:22 PM ANY COMMODITY BUYER 4 mg Given 05/24/2019 10:44 AM ANY COMMODITY BUYER 4 mg ONDANSETRON HCL (PF) 4 MG/2 ML INJECTION SOLUTION (CABINET OVERRIDE) 1 dose, Starting on 05/23/19 at 2232, Until 05/23/19 at 2233, [place] OMNICELL: cabinet override pantoprazole (PROTONIX) tablet 40 mg 40 mg, Oral, TWO TIMES DAILY, First dose on 05/24/19 at 2100, Until Discontinued, Routine, Indication: Gastroesophageal reflux disease (GERD) Given 05/25/2019 9:25 AM ANY COMMODITY BUYER 40 mg Given 05/24/2019 8:16 PM ANY COMMODITY BUYER 40 mg sodium chloride 0.9% bolus solution 1,000 mL 1,000 mL, IV, ONE TIME ONLY, 1 dose, On 05/24/19 at 2130, at 2,000 mL/hr, Administer over 30 Minutes, Routine New Bag 05/24/2019 9:39 PM ANY COMMODITY BUYER 1,000 mL 2000 mL/hr sodium chloride 0.9% bolus solution 1,000 mL 1,000 mL, IV, ONE TIME ONLY, 1 dose, On 05/25/19 at 0300, at 2,000 mL/hr, Administer over 30 Minutes, Routine New Bag 05/25/2019 2:54 AM ANY COMMODITY BUYER 1,000 mL 2000 mL/hr sodium chloride 0.9% bolus solution 500 mL 500 mL, IV, ONE TIME ONLY, 1 dose, On 05/24/19 at 2300, at 999 mL/hr, Administer over 30 Minutes, Routine New Bag 05/24/2019 11:00 PM ANY COMMODITY BUYER 500 mL 999 mL/hr sodium chloride 0.9% infusion IV, at 150 mL/hr, CONTINUOUS, Starting on 05/24/19 at 0115, Until 05/24/19 at 1024, Routine New Bag 05/24/2019 1:08 AM ANY COMMODITY BUYER 150 mL/hr sodium chloride 0.9% infusion IV, at 100 mL/hr, CONTINUOUS, Starting on 05/24/19 at 1030, Until 05/25/19 at 1922, Routine New Bag 05/25/2019 1:37 PM ANY COMMODITY BUYER 100 mL/hr New Bag 05/24/2019 10:42 PM ANY COMMODITY BUYER 100 mL/hr New Bag 05/24/2019 10:27 AM ANY COMMODITY BUYER 100 mL/hr documented in this encounter Active and Recently Administered Medications Times are shown in ANY COMMODITY BUYER. Scheduled Medication Order 05/23/2019 05/24/2019 05/25/2019 atorvastatin (LIPITOR) tablet 80 mg 80 mg, Oral, DAILY AT BEDTIME, First dose on 05/24/19 at 2100, Until Discontinued, Routine 2013 (Given - Provider: Desiree Neal RN) calcium GLUCONATE 2,000 mg in sodium chloride 0.9% 120 mL IVPB (COMPLETED) 2,000 mg, IV, INTRA-PROCEDURE ONCE, 1 dose, Starting on 05/24/19 at 1407, Until 05/24/19 at 1725, Routine, Intra-Procedure 1634 (New Bag - Provider: Laura Narvaez RN)1725 (Stopped - Provider: Laura Narvaez RN) citalopram (CeleXA) tablet 40 mg 40 mg, Oral, DAILY AT BEDTIME, First dose on 05/24/19 at 2100, Until Discontinued, Routine 2015 (Given - Provider: Desiree Neal RN) dextrose 5% - sodium chloride 0.9% infusion IV, at 40 mL/hr, SEE ADMIN INSTRUCTIONS, Starting on 05/24/19 at 1543, Until 05/25/19 at 1922, Routine dextrose 50% (D50) syringe 12.5 Gram 12.5 Gram, IV, SEE ADMIN INSTRUCTIONS, Starting on 05/24/19 at 1543, Until 05/25/19 at 1922, Routine dextrose 50% (D50) syringe 25 Gram 25 Gram, IV, SEE ADMIN INSTRUCTIONS, Starting on 05/24/19 at 1543, Until Sat05/25/19 at 1922, Routine fenofibrate (LOFIBRA) tablet 160 mg 160 mg, Oral, DAILY, First dose on Sat05/25/19 at 0900, Until Discontinued, Routine 09 (Given - Provider: Laura Narvaez RN) glucagon HCl 1 mg injection 1 mg 1 mg, IM, SEE ADMIN INSTRUCTIONS, Starting on Sat05/24/19 at 1543, Until Sat05/25/19 at 1922, Routine heparin injection 2,000 Units (COMPLETED) 2,000 Units, Dwell, ONE TIME ONLY, 1 dose, On Sat05/24/19 at 1515, Routine, Please tube to station 516, blood bank 1727 (Given - Provider: Rosales Tapia RN) heparin injection 3,000 Units (COMPLETED) 3,000 Units, Dwell, ONE TIME ONLY, 1 dose, On Sat05/24/19 at 1515, Routine, Please tube to station 516, blood bank 1728 (Given - Provider: Rosales Tapia RN) insulin lispro (HumaLOG) variable dose injection subCUT, THREE TIMES DAILY WITH MEALS, First dose on Sat05/24/19 at 1700, Until Discontinued, Routine 1700 (Not Given - Provider: Nina Barber RN - Reason: Patient condition - Comment: [phone]) 0700 (Not Given - Provider: Laura Narvaez RN - Reason: Patient condition)1200 (Not Given - Provider: Laura Narvaez RN - Reason: Patient condition - Comment: 175) insulin lispro (HumaLOG) variable dose injection subCUT, DAILY AT BEDTIME, First dose on Sat05/24/19 at 2100, Until Discontinued, Routine 2022 (Given - Provider: Desiree Neal RN - Comment: bg 240) ketorolac (TORADOL) injection 30 mg (COMPLETED) 30 mg, IV, ONE TIME ONLY, 1 dose, On Sat05/25/19 at 0530, Routine 0531 (Given - Provider: Desiree Neal RN) levothyroxine (SYNTHROID) tablet 200 mcg 200 mcg, Oral, DAILY EARLY, First dose on Sat05/25/19 at 0600, Until Discontinued, Routine 05 (Given - Provider: Desiree Neal RN) morphine 4 mg/mL injection 4 mg (COMPLETED) 4 mg, IV, ONE TIME ONLY, 1 dose, On 05/24/19 at 0115, Routine 0108 (Given - Provider: Monse Mon, CLAU) naloxone (NARCAN) 0.4 mg/mL injection 0.1 mg 0.1 mg, IV, SEE ADMIN INSTRUCTIONS, Starting on 05/24/19 at 2342, Until 05/25/19 at 1141, Routine ondansetron (ZOFRAN) 4 mg/2 mL injection 4 mg (COMPLETED) 4 mg, IV, ONE TIME ONLY, 1 dose, On 05/23/19 at 2245, Stat 2233 (Given - Provider: Karen Hassan, CLAU) ondansetron (ZOFRAN) 4 mg/2 mL injection 4 mg (COMPLETED) 4 mg, IV, ONE TIME ONLY, 1 dose, On 05/24/19 at 0115, Routine 0108 (Given - Provider: Monse Mon RN) pantoprazole (PROTONIX) tablet 40 mg 40 mg, Oral, TWO TIMES DAILY, First dose on 05/24/19 at 2100, Until Discontinued, Routine, Indication: Gastroesophageal reflux disease (GERD) 2015 (Given - Provider: Desiree Neal RN) 0925 (Given - Provider: Laura Narvaez RN) sodium chloride 0.9% bolus solution 1,000 mL (COMPLETED) 1,000 mL, IV, ONE TIME ONLY, 1 dose, On 05/24/19 at 2130, at 2,000 mL/hr, Administer over 30 Minutes, Routine 2139 (New Bag - Provider: Desiree Neal RN)2209 (Stopped - Provider: Desiree Neal RN) sodium chloride 0.9% bolus solution 1,000 mL (COMPLETED) 1,000 mL, IV, ONE TIME ONLY, 1 dose, On 05/25/19 at 0300, at 2,000 mL/hr, Administer over 30 Minutes, Routine 0254 (New Bag - Provider: Desiree Neal RN)0324 (Stopped - Provider: Desiree Neal RN) sodium chloride 0.9% bolus solution 500 mL (COMPLETED) 500 mL, IV, ONE TIME ONLY, 1 dose, On 05/24/19 at 2300, at 999 mL/hr, Administer over 30 Minutes, Routine 2300 (New Bag - Provider: Desiree Neal RN)2330 (Stopped - Provider: Desiree Neal RN) traZODone (DESYREL) tablet 100 mg 100 mg, Oral, DAILY AT BEDTIME, First dose on 05/24/19 at 2100, Until Discontinued, Routine 2100 (Not Given - Provider: Desiree Neal RN - Reason: Patient condition) Continuous Medication Order 05/23/2019 05/24/2019 05/25/2019 dextrose 5% - sodium chloride 0.45% infusion (CANCELED) IV, at 150 mL/hr, CONTINUOUS, Starting on 05/24/19 at 0130, Until 05/24/19 at 1022, Routine 0144 (New Bag - Provider: Monse Mon RN)0844 (New Bag - Provider: Deisy Musa RN)0915 (Rate Change - Provider: Deisy Musa RN - Comment: per Dr. Smith)1026 (Stopped - Provider: Deisy Musa RN) insulin regular (HUMULIN R,NOVOLIN R) 1 Units/mL in sodium chloride 0.9% infusion (CANCELED) 2 Units/hr (2 mL/hr), IV, CONTINUOUS, Starting on 05/24/19 at 0130, Until 05/24/19 at 1022 0304 (New Bag - Provider: Monse Mon RN)0357 (Rate Change - Provider: Monse Mon RN - Comment: notified and aware.)0400 (Rate Change - Provider: Monse Mon RN)0446 (Rate Change - Provider: Monse Mon RN)0717 (Rate Change - Provider: Deisy Musa RN - Comment: 153 glucose)1026 (Stopped - Provider: Deisy Musa RN) sodium chloride 0.9% infusion (CANCELED) IV, at 150 mL/hr, CONTINUOUS, Starting on 05/24/19 at 0115, Until 05/24/19 at 1024, Routine 0108 (New Bag - Provider: Monse Mon RN)0201 (Stopped - Provider: Monse Mon RN) sodium chloride 0.9% infusion IV, at 100 mL/hr, CONTINUOUS, Starting on 05/24/19 at 1030, Until 05/25/19 at 1922, Routine 1027 (New Bag - Provider: Deisy Musa RN)2242 (New Bag - Provider: Desiree Neal RN) 1337 (New Bag - Provider: BLAISE Hensley)1642 (Stopped - Provider: Laura Narvaez, CLAU) PRN Medication Order 05/23/2019 05/24/2019 05/25/2019 bisacodyl (DULCOLAX) rectal suppository 10 mg 10 mg, Rectal, DAILY PRN, Starting on 05/24/19 at 1525, Until 05/25/19 at 1922, Constipation, Routine docusate sodium (COLACE) capsule 100 mg 100 mg, Oral, TWO TIMES DAILY PRN, Starting on 05/24/19 at 1525, Until 05/25/19 at 1922, Constipation, Routine HYDROmorphone (DILAUDID) 2 mg/mL injection 0.5 mg (CANCELED) 0.5 mg, IV, EVERY 3 HOURS PRN, Starting on 05/24/19 at 0137, Until 05/24/19 at 1336, Pain (See admin instructions), Routine 0150 (Given - Provider: Monse Mon RN)0450 (Given - Provider: Monse Mon RN)0818 (Given - Provider: Deisy Musa RN)1124 (Given - Provider: Deisy Musa RN) HYDROmorphone (DILAUDID) 2 mg/mL injection 0.5 mg () 0.5 mg, IV, EVERY 2 HOURS PRN, Starting on 05/24/19 at 1454, Until 05/24/19 at 2153, Pain (See admin instructions), Routine 1459 (Given - Provider: Ta Musa RN)1549 (Given - Provider: Nina Barber RN)1823 (Given - Provider: Nina Barber RN) HYDROmorphone (DILAUDID) 2 mg/mL injection 0.5 mg 0.5 mg, IV, EVERY 3 HOURS PRN, Starting on 05/24/19 at 2342, Until 05/25/19 at 1922, Pain (See admin instructions), Routine LORazepam (ATIVAN) tablet 1 mg 1 mg, Oral, TWO TIMES DAILY PRN, Starting on 05/24/19 at 1525, Until Sat05/25/19 at 1922, Anxiety, Routine ondansetron (ZOFRAN) 4 mg/2 mL injection 4 mg 4 mg, IV, EVERY 6 HOURS PRN, Starting on 05/24/19 at 1033, Until Sat05/25/19 at 1922, Nausea/Emesis, Routine 1044 (Given - Provider: Ta Musa RN)1522 (Given - Provider: Nina Barber RN) prochlorperazine (COMPAZINE) injection 10 mg 10 mg, IV, EVERY 6 HOURS PRN, Starting on 05/24/19 at 1525, Until Sat05/25/19 at 1922, Nausea/Emesis, Routine documented in this encounter Care Teams Library Page Relationship Specialty Start Date End Date Guerrero Middleton PA-C PCP - General Physician Siderographist 02/13/18 documented as of this encounter
--- OUTSIDE RECORDS SUMMARY | 2024-05-03 20:42 | XMS_ITS | Encounter Summary ---
Author Organization [facility] Address [address] Orozco: Epic Prelude ADT [place] [address] Care Team Providers Care Signal Worker Name Role Phone Guerrero Middleton PA-C Primary Care Provide r Encounter Details Date Type Department Care Team (Latest Contact Info) Description 11/04/2019 Travel Social History Tobacco Use Types Packs/Day [...] do you attend [facility] or mandaen services? Never 08/21/2018 Do you belong to [...] have Coronavirus / COVID-19? No / Unsure 11/04/2019 9:40 AM CDT documented as of this encounter Plan of Treatment Upcoming Encounters Date Type Department Care Team (Late st Contact Info) Description 09/14/2024 3:00 PM CDT Office Visit [facility] [address] [place] [address] Marlys Mayer MD [address] [place] [address] documented as of this encounter Visit Diagnoses Not on filedocumented in this encounter Care Teams Signal Worker Relationship Specialty Start Date End Date Guerrero Middleton PA-C PCP - General Physician Spring Fitter 02/13/18 documented as of this encounter
--- OUTSIDE RECORDS SUMMARY | 2024-05-03 20:42 | XMS_ITS | Encounter Summary ---
Author Organization [employer] Address [address] [place] [address] Care Team Providers Care Fancy Wire Drawer Name Role Phone Guerrero Middleton PA-C Primary Care Provide r Encounter Details Date Type Department Care Team (Latest Contact Info) Description 05/11/2019 Orders Only [facility] Laboratory Services [address] [place] [address] Alize Arteaga MD NO ADDRESS ON FILE Hypertriglyceridemia (Primary Dx) Social History Tobacco Use [...] often do you attend chur ch or nondenominational services? Never 08/21/2018 Do you [...] [facility] Heart and Vascular - [facility] [address] [place] [address] Marlys Mayer MD [address] [place], [place] [id number] documented as of this encounter Procedures Procedure Name Priority Date/Time Associated Diagnosis Comments TRIGLYCERIDE Stat 05/11/2019 3:55 PM PHYSICIAN GENERAL INTERNAL MEDICINE Hypertriglyceridemia documented in this encounter Results * TRIGLYCERIDE (05/11/2019 3:55 PM PHYSICIAN GENERAL INTERNAL MEDICINE) TRIGLYCERIDE 116 <150 mg/dL 05/11/2019 4:44 PM PHYSICIAN GENERAL INTERNAL MEDICINE [facility] Blood Venipuncture / Unknown 05/11/2019 3:55 PM PHYSICIAN GENERAL INTERNAL MEDICINE 05/11/2019 4:01 PM PHYSICIAN GENERAL INTERNAL MEDICINE Narrative [facility] - 05/11/2019 4:44 PM PHYSICIAN GENERAL INTERNAL MEDICINE TRIGLYCERIDES ? mg/dL Normal ?< 150 Borderline High ?150 - 199 High ? 200 - 499 Very High ? >= 500 Based on AHA/NCEP Guidelines. Alize Arteaga MD CHEMISTRY ORDER [facility]# [id number] [address] [place] [address] documented in this encounter Visit Diagnoses Diagnosis Hypertriglyceridemia- Primary Pure hyperglyceridemia documented in this encounter Care Teams Fancy Wire Drawer Relationship Specialty Start Date End Date Guerrero Middleton PA-C PCP - General Physician Australian Rules Footballer 02/13/18 documented as of this encounter
--- OUTSIDE RECORDS SUMMARY | 2024-05-03 20:42 | XMS_ITS | Encounter Summary ---
Author Organization [employer] Address [address] [place] [address] Care Team Providers Care Child Support Agent Name Role Phone Guerrero Middleton PA-C Primary Care Provide r Encounter Details Date Type Department Care Team (Late st Contact Info) Description 11/04/2019 Orders Only [facility] Laboratory Services [address] [place] [address] Lyssa Mcnally Mixed hyperlipidemia Social History Tobacco Use Types [...] 09/14/2024 3:00 PM CDT Office Visit [facility] - [facility] [address] [place] [address] Marlys Mayer MD [address] [place] [address] documented as of this encounter Procedures Procedure Name Priority Date/Time Associated Diagnosis Comments TRIGLYCERIDE Routine 11/04/2019 11:33 AM CDT Mixed hyperlipidemia documented in this encounter Results * (ABNORMAL) TRIGLYCERIDE (11/04/2019 11:33 AM CDT) TRIGLYCERIDE 277(H) <150 mg/dL 11/04/2019 12:31 PM CDT [facility] Blood Collection / Unknown 11/04/2019 11:33 AM CDT 11/04/2019 11:35 AM CDT Narrative [facility] - 11/04/2019 12:31 PM CDT TRIGLYCERIDES ? mg/dL Normal ?< 150 Borderline High ?150 - 199 High ? 200 - 499 Very High ? >= 500 Based on AHA/NCEP Guidelines. Alize Arteaga MD CHEMISTRY ORDER [facility]# [id number] [address] [facility] [place] [address] documented in this encounter Visit Diagnoses Diagnosis Mixed hyperlipidemia documented in this encounter Care Teams Child Support Agent Relationship Specialty Start Date End Date Guerrero Middleton PA-C PCP - General Physician Needle Process Felt Goods Supervisor 02/13/18 documented as of this encounter
--- OUTSIDE RECORDS SUMMARY | 2024-05-03 20:42 | XMS_ITS | Encounter Summary ---
Author Organization [facility] Address [address] [place] [address] Care Team Providers Care Washery Boss Name Role Phone Guerrero Middleton PA-C Primary Care Provide r Reason for Visit * Reason Comments Medication Refill Encounter Details Date Type Department Care Team (Late st Contact Info) Description 10/10/2019 Refill [facility] Endocrinology [address] [place] [address] Blake Rudd MD NO ADDRESS ON FILE Social History Tobacco [...] encounter Miscellaneous Notes * Telephone Encounter - Alize Paul - 10/12/2019 11:48 AM CDT Last visit:04/08/2020 Next visit: no upcoming appt scheduled documented in this encounter Plan of Treatment Upcoming Encounters Date Type Department Care Team (Late st Contact Info) Description 09/14/2024 3:00 PM CDT Office Visit [facility] Heart and Vascular - [address] [place] [address] Marlys Mayer MD [address] [place] [address] documented as of this encounter Visit Diagnoses Not on filedocumented in this encounter Care Teams Washery Boss Relationship Specialty Start Date End Date Guerrero Middleton PA-C PCP - General Physician Electricians Top Helper 02/13/18 documented as of this encounter
--- OUTSIDE RECORDS SUMMARY | 2024-05-03 20:42 | XMS_ITS | Encounter Summary ---
Author Organization [facility] Address [address] [place] [address] Care Team Providers Care Advertising Photographer Name Role Phone Guerrero Middleton PA-C Primary Care Provide r Reason for Visit * Reason Onset Date Comments Question 12/16/2019 Encounter Details Date Type Department Care Team (Late st Contact Info) Description 12/16/2019 Telephone [facility] Endocrinology [address] [place] [address] Prudence Gates MD [address] [place] [address] Question Social History Tobacco Use Types Packs/Day [...] have Coronavirus / COVID-19? No / Unsure 12/14/2019 12:40 PM CDT documented as of this encounter Miscellaneous Notes * Telephone Encounter - Hedy Castro - 12/17/2019 9:36 AM CDT Scheduling informed. Will inform patient when she is called to schedule. * Telephone Encounter - Prudence Gates MD - 12/16/2019 8:37 PM CDT Unfortunately unless the mammogram is abnormal, I can not * Telephone Encounter - Hedy Castro - 12/16/2019 1:29 PM CDT Would like to have her screening mammogram changed to diagnostic mammogram. Please advise documented in this encounter Plan of Treatment Upcoming Encounters Date Type Department Care Team (Late st Contact Info) Description 09/14/2024 3:00 PM CDT Office Visit [facility] Heart and Vascular - [place] [address] [place] [address] Marlys Mayer MD [address] [place] [address] documented as of this encounter Visit Diagnoses Not on filedocumented in this encounter Care Teams Advertising Photographer Relationship Specialty Start Date End Date Guerrero Middleton PA-C PCP - General Physician Senior Category Manager 02/13/18 documented as of this encounter
--- OUTSIDE RECORDS SUMMARY | 2024-05-03 20:42 | XMS_ITS | Encounter Summary ---
Author Organization [facility] Address [address] Orozco: Epic Prelude ADT [place] [address] Care Team Providers Care Tire Setter Name Role Phone Guerrero Middleton PA-C Primary Care Provide r Encounter Details Date Type Department Care Team (Latest Contact Info) Description 12/17/2019 Travel Social History Tobacco Use Types Packs/Day [...] week 08/21/2018 How often do you attend [facility] or mormonism services? Never 08/21/2018 Do you [...] [place] [facility] - [facility] [address] [place] [address] Mralys Mayer MD [address] [place] [address] documented as of this encounter Visit Diagnoses Not on filedocumented in this encounter Care Teams Tire Setter Relationship Specialty Start Date End Date Guerrero Middleton PA-C PCP - General Physician Desktop Publishing Specialist 02/13/18 documented as of this encounter
--- OUTSIDE RECORDS SUMMARY | 2024-05-03 20:42 | XMS_ITS | Encounter Summary ---
Author Organization [facility] Address [address] Orozco: Epic Prelude ADT [place] [address] Care Team Providers Care Compacting Machine Operator/Tender Name Role Phone Guerrero Middleton PA-C Primary Care Provide r Encounter Details Date Type Department Care Team (Latest Contact Info) Description 02/15/2020 Travel Social History Tobacco Use Types Packs/Day [...] you attend [facility] or jewish services? Never 08/21/2018 Do you belong to [...] have Coronavirus / COVID-19? No / Unsure 02/15/2020 4:55 PM CDT documented as of this encounter Plan of Treatment Upcoming Encounters Date Type Department Care Team (Late st Contact Info) Description 09/14/2024 3:00 PM CDT Office Visit [facility] [address] [place] [address] Marlys Mayer MD [address] [place] [address] documented as of this encounter Visit Diagnoses Not on filedocumented in this encounter Care Teams Compacting Machine Operator/Tender Relationship Specialty Start Date End Date Guerrero Middleton PA-C PCP - General Physician Financial Advisor 02/13/18 documented as of this encounter
--- OUTSIDE RECORDS SUMMARY | 2024-05-03 20:42 | XMS_ITS | Encounter Summary ---
Author Organization [facility] Address [address] [place] [address] Care Team Providers Care Glass Cleaning Machine Tender Name Role Phone Guerrero Middleton PA-C Primary Care Provide r Encounter Details Date Type Department Care Team (Latest Contact Info) Description 12/30/2019 Orders Only [facility] Laboratory Services [address] [place] [address] [address] [place] [address] Alize Arteaga MD NO ADDRESS [...] often do you attend chur ch or alevism services? Never 08/21/2018 Do you [...] have Coronavirus / COVID-19? No / Unsure 12/30/2019 10:16 AM CDT documented as of this encounter Plan of Treatment Upcoming Encounters Date Type Department Care Team (Late st Contact Info) Description 09/14/2024 3:00 PM CDT Office Visit [facility] Heart and Vascular - [facility] [address] [place] [address] Marlys Mayer MD [address] [place] [address] documented as of this encounter Procedures Procedure Name Priority Date/Time Associated Diagnosis Comments TRIGLYCERIDE Routine 12/30/2019 11:52 AM CDT Hypertriglyceridemia documented in this encounter Results * TRIGLYCERIDE (12/30/2019 11:52 AM CDT) TRIGLYCERIDE 141 <150 mg/dL 12/30/2019 12:46 PM CDT [facility] Blood Venipuncture / Unknown 12/30/2019 11:52 AM CDT 12/30/2019 11:57 AM CDT Narrative [facility] - 12/30/2019 12:46 PM CDT TRIGLYCERIDES ? mg/dL Normal ?< 150 Borderline High ?150 - 199 High ? 200 - 499 Very High ? >= 500 Based on AHA/NCEP Guidelines. Alize Arteaga MD CHEMISTRY ORDER [facility] [id number] [address] [place] [place] [address] documented in this encounter Visit Diagnoses Diagnosis Hypertriglyceridemia- Primary Pure hyperglyceridemia documented in this encounter Care Teams Glass Cleaning Machine Tender Relationship Specialty Start Date End Date Guerrero Middleton PA-C PCP - General Physician Actuarial Science Teacher 02/13/18 documented as of this encounter
--- OUTSIDE RECORDS SUMMARY | 2024-05-03 20:42 | XMS_ITS | Encounter Summary ---
Author Organization [facility] Address [address] [place] [address] Care Team Providers Care Therapist Asst Name Role Phone Guerrero Middleton PA-C Primary Care Provide r Encounter Details Date Type Department Care Team (Latest Contact Info) Description 01/27/2020 10:00 AM CDT - 01/27/2020 11:59 PM CDT Hospital Encounter [facility] Donor Services [address] [phone] Alize Arteaga MD NO ADDRESS ON FILE [...] often do you attend chur ch or gnosticist services? Never 08/21/2018 Do you [...] have Coronavirus / COVID-19? No / Unsure 01/27/2020 9:25 AM CDT documented as of this encounter Last Filed Vital Signs Vital Sign Reading Time Taken Comments Blood Pressure 107/70 01/27/2020 11:30 AM CDT Pulse 86 01/27/2020 11:30 AM CDT Temperature 36.7 ??C (98.1 ??F) 01/27/2020 11:30 AM C DT Respiratory Rate - - Oxygen Saturation - [...] 2 times daily. 06/05/2018 09/26/2023 empagliflozin (JARDIANCE) 25 mg tablet Take 1 tablet by mouth early in the morning. 30 Tablet 6 12/23/2019 12/07/2020 varenicline (Chantix) 0.5 mg Tablet Take 1 Tablet (0.5 mg) by mouth 2 times daily. 60 Tablet 12/14/2019 09/19/2023 insulin glargine (LANTUS) 100 unit/mL injection 35 units in the AM 30 mL 1 12/14/2019 02/29/2020 flash glucose sensor (FreeStyle Torey 14 Day [...] of this encounter Progress Notes * Rosales Tapia, RN - 01/27/2020 11:53 AM CDT Plasma exchange number completed using the right and left chest bard ports for access and return with 5% albumin as replacement fluids for a 1.0 volume exchange. Occlusive dressing with sterile gauzeapplied to both site. Pt left in stable condition at 1130. documented in this encounter Plan of Treatment Upcoming Encounters Date Type Department Care Team (Late st Contact Info) Description 09/14/2024 3:00 PM CDT Office Visit [facility] Heart and Vascular - [facility] [address] [place] [address] Marlys Mayer MD [address] [place] [address] documented as of this encounter Procedures Procedure Name Priority Date/Time Associated Diagnosis Comments CBC WITH DIFFERENTIAL Routine 01/27/2020 9:40 AM CDT Hypertriglyceridemi a TRIGLYCERIDE Routine 01/27/2020 9:40 AM CDT Hypertriglyceridemi a documented in this encounter Results * (ABNORMAL) CBC WITH DIFFERENTIAL (01/27/2020 9:40 AM CDT) WBC 10.1(H) 4.0 - 9.8 K/uL 01/27/2020 10:07 AM CDT [facility] LABORATORY SERVICES - [facility] RBC 4.76 3.90 - 4.90 M/uL 01/27/2020 10:07 AM CDT [facility] LABORATORY SERVICES - [facility] HEMOGLOBIN 14.2 11.8 - 14.8 g/dL 01/27/2020 10:07 AM CDT [facility] LABORATORY SERVICES - [facility] HEMATOCRIT 42.7 35.5 - 44.0 % 01/27/2020 10:07 AM CDT [facility]ORATORY SERVICES - [facility] MCV 89.7 82.0 - 99.0 fL 01/27/2020 10:07 AM Official [employer] LABORATORY SERVICES - [facility] MCH 29.8 27.2 - 32.6 pg 01/27/2020 10:07 AM [employer] LABORATORY SERVICES - [facility] MCHC 33.3 31.5 - 35.5 g/dL 01/27/2020 10:07 AM Official [employer] LABORATORY SERVICES - [facility] RDW 13.2 11.5 - 14.5 % 01/27/2020 10:07 AM [employer] LABORATORY SERVICES - [facility] RDW-STDEV 43.5 37.1 - 48.7 fL 01/27/2020 10:07 AM [employer] LABORATORY SERVICES - [facility] PLATELETS 213 140 - 350 K/uL 01/27/2020 10:07 AM [employer] LABORATORY SERVICES - [facility] MPV 9.5 9.3 - 12.4 fL 01/27/2020 10:07 AM [employer] LABORATORY SERVICES - [facility] NEUTROPHILS 68 % 01/27/2020 10:07 AM [employer] LABORATORY SERVICES - [facility] LYMPHOCYTES 24 % 01/27/2020 10:07 AM [employer] LABORATORY SERVICES - [facility] MONOCYTES 7 % 01/27/2020 10:07 AM [employer] LABORATORY SERVICES - [facility] EOSINOPHILS 1 % 01/27/2020 10:07 AM [employer] LABORATORY SERVICES - [facility] BASOPHILS 0 % 01/27/2020 10:07 AM [employer] LABORATORY SERVICES - [facility] IMMATURE GRANULOCYTES 1 % 01/27/2020 10:07 AM [employer] LABORATORY SERVICES - [facility] Comment:IG (Immature Granulo cyte) count includes Metamyelocytes, Myelocytes, and Promyelocytes NEUTROPHIL ABSOLUTE 6.85 1.90 - 7.00 K/uL 01/27/2020 10:07 AM Official [employer] [facility] LAB[facility]ATORY [facility] - [facility] LYMPHOCYTE ABSOLUTE 2.42 0.70 - 4.50 K/uL 01/27/2020 10:07 AM Official [employer] LABORATORY SERVICES - . [facility] MONOCYTE ABSOLUTE 0.66 0.10 - 1.30 K/uL 01/27/2020 10:07 AM Official [employer] [facility] LABORATORY SERVICES - . [facility] EOSINOPHIL ABSOLUTE 0.07 0.00 - 0.70 K/uL 01/27/2020 10:07 AM Official [employer] LABORATORY SERVICES - [facility] BASOPHILS ABSOLUTE 0.03 0.00 - 0.20 K/uL 01/27/2020 10:07 AM CDT [facility] LABORATORY SERVICES - [facility] IMMATURE GRANULOCYTES ABSOLUTE 0.07(H) 0.00 - 0.03 K/uL 01/27/2020 10:07 AM CDT [facility] LABORATORY [facility] - [facility] Blood Venipuncture / Unknown 01/27/2020 9:40 AM CDT 01/27/2020 10:01 AM CDT Melanie Carias MD HEMATOLOGY ORDERABLE S [facility]# [id number] [address] [place] [address] * (ABNORMAL) TRIGLYCERIDE (01/27/2020 9:40 AM CDT) TRIGLYCERIDE 632(H) <150 mg/dL 01/27/2020 12:03 PM CDT [facility] Blood Venipuncture / Unknown 01/27/2020 9:40 AM CDT 01/27/2020 10:01 AM CDT Narrative [facility] LABORATORY [facility] - 01/27/2020 12:03 PM CDT TRIGLYCERIDES ? mg/dL Normal ?< 150 Borderline High ?150 - 199 High ? 200 - 499 Very High ? >= 500 Based on AHA/NCEP Guidelines. Alize Arteaga MD CHEMISTRY ORDER OSVALDO Performing Organization Address City/[facility]/ZIP Co de Phone Number [facility]# [id number] [address] [place] [address] documented in this encounter Visit Diagnoses Diagnosis Hypertriglyceridemia- Primary Pure hyperglyceridemia documented in this encounter Administered Medications Inactive Administered Medications - up to 3 most recent administrations Medication Order MAR Action Action Date Dose Rate Site calcium GLUCONATE 2,000 mg in sodium chloride 0.9% 120 mL IVPB 2,000 mg, IV, INTRA-PROCEDURE ONCE, 1 dose, Starting on Sat01/27/20 at 0930, Until Sat01/27/20 at 1021, Stat, Intra-Procedure New Bag 01/27/2020 9:30 AM CDT 2,000 mg 158.8 mL/hr heparin, porcine (pf) 10 unit/mL IV syringe 20 Units 20 Units, IV, ONE TIME ONLY, 1 dose, On Sat01/27/20 at 0900, Routine Given 01/27/2020 11:06 AM CDT 20 Units heparin, porcine lock flush (pf) 100 unit/mL injection 500 Units 500 Units, IV, ONE TIME ONLY, 1 dose, On Sat01/27/20 at 0900, Routine Given 01/27/2020 11:06 AM CDT 500 Units heparin, porcine lock flush (pf) 100 unit/mL injection 500 Units 500 Units, IV, ONE TIME ONLY, 1 dose, On Sat01/27/20 at 0900, Routine Given 01/27/2020 11:05 AM CDT 500 Units documented in this encounter Care Teams Therapist Asst Relationship Specialty Start Date End Date Guerrero Middleton PA-C PCP - General Physician Paper Novelty Maker 02/13/18 documented as of this encounter
--- OUTSIDE RECORDS SUMMARY | 2024-05-03 20:42 | XMS_ITS | Encounter Summary ---
Author Organization [facility] Address [address] [place] [address] Care Team Providers Care Recreational Sports Director Name Role Phone Guerrero Middleton PA-C Primary Care Provide r Reason for Visit * Auth/Cert Specialty Diagnoses / Procedures Referred By Contac t Referred To Contact General Surgery Diagnoses Hypertriglyceridemia Procedures IR VENOUS NECK [facility] [place] [address] [place] [address] Referral ID Status Reason Start Date Expiration Date Visits Re quested Visits Authorized [id number] 1 1 Encounter Details Date Type Department Care Team (Late st Contact Info) Description 05/11/2019 10:17 AM LIME SUPERVISOR Anesthesia Event [facility] Interventional Radiology S [facility] [address] [place] [address] Mark Wyatt MD [address] [place] [address] Anesthesia Record Procedure Summary Procedure Name Responsible Anesthesiologist Anesthesia Start Time Anesthesia Stop Time IR VENOUS NECK Mark Wyatt MD 05/11/19 1017 1140 Events Date Time Event Comment 05/11/2019 0737 0737 AN Equip Check Anesthesia eq uipment and materials checked in accordance with local policy. 1017 An Start 1017 An Start Data 1028 Pre-Induction Immediate pre- induction anesthetic assessment performed. Vital signs as noted on graphic. 1028 An Induction 1028 Anesthesia Ready 1137 an stop data 1140 An Stop Meds Name Total fentaNYL (SUBLIMAZE) PF 50??mcg/mL injec tion 50 mcg midazolam PF (VERSED) 1 mg/mL injection 2 mg propofol (DIPRIVAN) 10??mg/mL injection 316.8 mg lidocaine PF (XYLOCAINE MPF) 20 mg/mL sy ringe 60 mg glycopyrrolate (ROBINUL) 0.4 mg/2 mL (0. 2 mg/mL) syringe 0.2 mg ondansetron (ZOFRAN) 4??mg/2 mL injectio n 4 mg ceFAZolin (ANCEF) 2,000 mg in dextrose ( iso-osmotic) 100 mL IVPB (PREMIX) 2,000 mg * Agents Name Sevoflurane % Sevoflurane O2 N2O Inspired N2O O2 * Blood No blood administrations on file. Lines, Drains, and Airways Type Details Placement Removal Vascular Access Port 10/29/18; 1135; No; Right:; (Right IJ); top entry; 02/19/20; observed not present 10/29/18 1135 by Aura Parks RN Vascular Access Port 02/18/19; 0951; No; Left:; top entry; noncoring straight; 16 gauge; (1.77 in); 1; tolerated well (anesthesia); intradermal injection; 02/19/20; observed not present 02/18/19 0951 by Nora Agarwal RN Wound 02/18/19; 0955; No; 1; Right, upper; chest; surgical; 08/13/20; 18402/18/19 0955 by Nora Agarwal RN 08/13/20 184 by Katia Lima RN Wound 02/18/19; 0956; No; 2; Left, upper; chest; surgical; 08/13/20; 18402/18/19 0956 by Nora Agarwal RN 08/13/20 184 by Katia Lima RN Vascular Access Port 02/18/19; 0957; Rig ht:; top entry; noncoring straight; 16 gauge; (1.77in); 1; tolerated well (anesthesia); intradermal injection; 08/10/20; observed not present 02/18/19 0957 by Nora Agarwal RN Peripheral IV Pre-Hospital Start: No; Orientation: Right; Location: AC; Device: Angiocath; Gauge: 20 gauge; Needle Length: 1 in length; Insertion Attempts: 1; Patient Tolerance: tolerated well 05/11/19 0628 by Bibiana Sheridan RN 05/11/19 1338 by Bibiana Sheridan RN Supraglottic Airway Type: nasal cannula; Confirmation: satisfactory chest rise, SAO2, end tidal CO2 05/11/19 0737 by Mark Wyatt MD 05/11/19 1338 by Bibiana [place] RN Vascular Access Port 05/11/19; 1000; Yes ; Left:; (APHERESIS PORT); noncoring straight; 16 gauge; 06/18/20; 1329; no longer indicated, removed per policy; catheter intact, pressure dressing, direct pressure 05/11/19 1000 by Robyn Hernandez RN 06/18/20 1329 by Jeff Robbins RN Wound 05/11/19; 1043; No; 1; Left, upper; chest; surgical; 08/13/20; 1843 05/11/19 1043 by Nicole Michelle RN 08/13/20 1843 by Katia Lima RN Wound 05/11/19; 1100; No; 2; Left, lower; neck; surgical; 08/13/20; 1843 05/11/19 1100 by Nicole Michelle RN 08/13/20 1843 by Katia Lima RN documented in this encounter Social History Tobacco [...] often do you attend chur ch or spiritism services? Never 08/21/2018 Do you [...] OR Notes * Anesthesia Postprocedure Evaluation - Mark Wyatt MD - 05/11/2019 12:57 PM CST Post Anesthesia Evaluation Vitals: Vitals Value Taken Time BP Temp Resp SpO2 Pulse Heart Rate Pain Rating: Pain Rating: Activity: 5 (05/11/19 1230) Anesthesia Post Evaluation Patient participation: patient was able to participate in the post op evaluation Level of consciousness: 0 = alert, responsive, answers simple questions appropriately, able to perform simple tasks Pain management: adequate Airway patency: patent Nausea or Vomiting: none Anesthetic complications: no Cardiovascular status: regular rate and rhythm Respiratory status: no respiratory symptoms Hydration status: well hydrated Mark Wyatt MD SUPERVISOR * Anesthesia Handoff - Mark Wyatt MD - 05/11/2019 11:40 AM CST Post-Anesthetic transfer of care report elements to appropriate post-anesthesia recovery environment completed in accordance with procedure. I completed my handoff to the receiving nurse during which we: 1. Identified the patient 2. Identified the responsible provider 3. Reviewed the pertinent medical history 4. Discussed the surgical course 5. Reviewed intra-op anesthesia management and issues during anesthesia 6. Set expectations for post-procedure period 7. Orders as necessary and appropriate for continuation of care are present in Epic. 8. Allowed opportunity for questions and acknowledgement of understanding. Vital Signs: BP: 98/54 (05/11/2019 6:53 AM) Pulse: 75 (05/11/2019 6:53 AM) Temp: 36.7 ??C (05/11/2019 6:53 AM) Resp: 16 (05/11/2019 6:53 AM) SpO2: 97 % (05/11/2019 6:53 AM) 11:40 AM Mark Wyatt MD SUPERVISOR * Anesthesia Preprocedure Evaluation - Mark Wyatt MD - 05/11/2019 7:36 AM CST Relevant Problems No relevant active problems Anesthesia Evaluation Patient summary reviewed and Nursing notes reviewed Airway Mallampati: III TM distance: <3 FB Neck ROM: full Dental Comment: Lower permanent retainer Pulmonary - normal exam ROS comment: Smoking 1 ppd 27 years Cardiovascular - normal exam ROS comment: HLD Chilomicronemia- pheresis ECG 02/14- SR, borderline TWA Neuro/Psych (+) TIA (6 years ago- presented with right sided weakness ), psychiatric history GI/Hepatic/Renal (+) GERD well controlled, Comments: Bouts of pancreatitis related to hypertryglyceridemia Endo/Other (+) diabetes mellitus type 2 poorly controlled using insulin, hypothyroidism, Comments: Metabolic syndrome, PCOS Abdominal (+) obese, Anesthesia History No history of anesthetic complications. Anesthesia Plan ASA Final: 3 MAC N/A induction NPO status > 8 hours Anesthetic plan and risks discussed with Patient and Patient Designated Charhouse Worker. Post-op Pain Control Plan to use Block and Per surgeon for post-op pain control. Plan for postoperative opioid use Smoking Compliance Patient smoked on day of surgery SUPERVISOR documented in this encounter Miscellaneous Notes * Addendum Note - Mark Wyatt MD - 05/11/2019 3:03 PM CST Addendum created 05/11/19 1503 by Mark Wyatt MD Attestation recorded in Intraprocedure, Intraprocedure Attestations filed SUPERVISOR documented in this encounter Plan of Treatment Upcoming Encounters Date Type Department Care Team (Late st Contact Info) Description 09/14/2024 3:00 PM CDT Office Visit [facility] [address] [place] [address] Marlys Mayer MD [address] [place] [address] documented as of this encounter Visit Diagnoses Not on filedocumented in this encounter Administered Medications Inactive Administered Medications - up to 3 most recent administrations Medication Order MAR Action Action Date Dose Rate Site ceFAZolin (ANCEF) 2,000 mg in dextrose (iso-osmotic) 100 mL IVPB (PREMIX) 2,000 mg, IV, PRE-PROCEDURE ONCE, 1 dose, Starting on Sat05/11/19 at 0643, Until Sat05/11/19 at 1027, Routine, Please send to [facility], Antibiotic Indication: Surgical prophylaxis Given 05/11/2019 10:27 AM LIME SUPERVISOR 2,000 mg fentaNYL PF (SUBLIMAZE) 50 mcg/mL injection INTRA-PROCEDURE PRN, Starting on Sat05/11/19 at 1023, Until Sat05/11/19 at 1140, Routine, Anesthesia Intra-op Given 05/11/2019 10:23 AM LIME SUPERVISOR 50 mcg glycopyrrolate (ROBINUL) injection INTRA-PROCEDURE PRN, Starting on Sat05/11/19 at 1025, Until Sat05/11/19 at 1140, Routine, Anesthesia Intra-op Given 05/11/2019 10:25 AM LIME SUPERVISOR 0.2 mg lidocaine (PF) (XYLOCAINE MPF) 60 mg/3 mL (2 %) injection syringe INTRA-PROCEDURE PRN, Starting on Sat05/11/19 at 1025, Until Sat05/11/19 at 1140, Routine, Anesthesia Intra-op Given 05/11/2019 10:25 AM LIME SUPERVISOR 60 mg midazolam (PF) (VERSED) injection INTRA-PROCEDURE PRN, Starting on Sat05/11/19 at 1023, Until Sat05/11/19 at 1140, Routine, Anesthesia Intra-op Given 05/11/2019 10:23 AM LIME SUPERVISOR 2 mg ondansetron (ZOFRAN) 4 mg/2 mL injection INTRA-PROCEDURE PRN, Starting on Sat05/11/19 at 1026, Until Sat05/11/19 at 1140, Routine, Anesthesia Intra-op Given 05/11/2019 10:26 AM LIME SUPERVISOR 4 mg propofol (DIPRIVAN) injection INTRA-PROCEDURE CONTINUOUS PRN, Starting on Sat05/11/19 at 1035, Until Sat05/11/19 at 1140, Anesthesia Intra-op New Bag 05/11/2019 10:35 AM LIME SUPERVISOR 80 mcg/kg/min 42.24 mL/hr documented in this encounter Care Teams Recreational Sports Director Relationship Specialty Start Date End Date Guerrero Middleton PA-C PCP - General Physician Cadmium Plater 02/13/18 documented as of this encounter
--- OUTSIDE RECORDS SUMMARY | 2024-05-03 20:42 | XMS_ITS | Encounter Summary ---
Author Organization [facility] Address [address] [place] [address] Care Team Providers Care Devulcanizer Loader Name Role Phone Guerrero Middleton PA-C Primary Care Provide r Reason for Visit * Reason Comments Abdominal Pain Pt presents to ED wi th c/o pancreatitis. Pt reports having middle to LUQ abdominal pain starting yesterday. + N/V. Hx of pancreatitis d/t genetic lipid disordered. Pt reports last flare up was last March, reports getting plasmaphoresis as prescribed. * Auth/Cert Specialty Diagnoses / Procedures Referred By Tequila t Referred To Contact Emergency Medicine [facility] Emergency Dept [address] [place] [address] Referral ID Status Reason Start Date Expiration Date Visits Re quested Visits Authorized [id number] 1 1 Encounter Details Date Type Department Care Team (Latest Contact Info) Description 02/15/2020 7:34 PM CDT - 02/29/2020 2:02 PM TIG WELDER Hospital Encounter [facility] Medicine [address] [place] [address] Matteo Lyn MD [address] [facility] [place] [address] Loki Vences MD [address] [place] [address] [place] [address] [place] [id number] Richard Mead MD [address] [place] [address] Karen Thomas MD NO ADDRESS ON FILE Acute on chronic pancreatitis Discharge Disposition: Home [...] How often do you attend chur or druze services? Never 08/21/2018 Do you belong to any clubs o r organizations such as christianity groups, unions, fraternal or athletic groups, or [...] Sign Reading Time Taken Comments Blood Pressure 115/70 02/29/2020 12:34 PM TIG WELDER Pulse 78 02/29/2020 12:34 PM TIG WELDER Temperature 36.8 ??C (98.2 ??F) 02/29/2020 12:[address] Respiratory Rate 16 02/29/2020 12:34 PM TIG WELDER Oxygen Saturation 98% 02/29/2020 12:34 PM TIG WELDER Inhaled Oxygen Concentration - - Weight 86.7 kg (191 lb 3.2 oz) 02/29/2020 4:15 A M TIG WELDER Height 165.1 cm (5' 5 ) 02/15/2020 4:56 PM CDT Body Mass Index 31.82 02/15/2020 4:56 PM CDT documented in this encounter Discharge Summaries * Vignesh Badillo MD - 02/29/2020 2:00 AM CST [facility] Adult Discharge Summary Casandra Doss 44 y.o. female 1975 CSN: [id number] Date of Admission: 02/15/2020 Date of Discharge: 02/29/2020 Discharging Physician: Kortney Ray DO LOS: 14 days PCP: Guerrero Middleton PA-C Code Status at Discharge: Full Code Dispo: Home Labs and studies from this hospitalization needing follow up: ?? None Follow-up: You must follow up with Guerrero Middleton PA-C in 1 week. Follow up with Dr. Gates, as scheduled. Follow up with Dr. Vega in GI clinic in roughly one month. Admitting Dx and Chief Complaint Chief Complaint Patient presents with ??? Abdominal Pain Pt presents to ED with c/o pancreatitis. Pt reports having middle to LUQ abdominal pain starting yesterday. + N/V. Hx of pancreatitis d/t genetic lipid disordered. Pt reports last flare up was lastDecember, reports getting plasmaphoresis as prescribed. Acute on chronic pancreatitis Discharge Diagnoses and Relevant Hospital Course: Active Hospital Problems Diagnosis ??? Moderate protein-calorie malnutrition ??? Uncontrolled type 2 diabetes mellitus with hyperglycemia ??? Acute on chronic pancreatitis ??? Acquired hypothyroidism ??? Type 2 diabetes mellitus without complication, with long-term current use of insulin ??? Tobacco use ??? Hypertriglyceridemia ??? Chylomicronemia syndrome ??? Depression with anxiety Resolved Hospital Problems No resolved problems to display. Casandra Doss is a 44 year old female with PMH of hyperchylomicronemia who presented to [facility] with chief complaint of abdominal pain, nausea, and vomiting. She was found tohave triglyceride levels over 4000 and having a pancreatitis episode secondary to hypertriglyceridemia. She was initially started on an insulin drip overnight on admission and underwent apharesis daily for three days until her triglyceride levels decreased to <500. However, despite lowering her triglyceride levels, she still had difficulty tolerating anything more significant than small amounts of a clear liquid diet without large amounts of both oral and IV pain medications. Discussed case with endocrinology given that it had been several days since she had any significant nutrition. Given her hypertriglyceridemia, it was not recommended that she receive any TPN/PPN. A NJ tube was successfully placed for enteral feedings on 02/25/2020. GI was consulted for assistance in management of her acute on chronic pancreatitis and to help determine if patient would be a candidate for a more permanent feeding tube (GJ tube). GI recommended a repeat CT scan to determine the extent of pancreatitis given persistent symptoms- notable for improving pancreatitis. Etiology of continued pain was determined to be multifactorial- functional abdominal pain vs chronic pancreatitis with a component of pancreatic insufficiency. She was started on a low dose of nortriptyline, Bentyl as needed, and added Creon for supplementation with meals. Her tube feedings were discontinued on 02/28 and she was able to consistently continue with a PO diet. Of note, a new pancreatic tail lesion was demonstrated on both CT scans this admission that had notbeen seen on prior CT scans. This is most likely product representative of a pseudocyst in the setting of pancreatitis, however, it is recommended that she follow up in GI clinic to further evaluate after sy creatitis resolves. Nutritional status and in-house recommendations: Current Diet and/or Nutritional Supplementation ordered: DIET FAT CONTROL DIET TUBE FEEDING High Protein,; Elemental 1.0, Nutrition Diagnosis: Moderate protein-calorie malnutrition (02/22/20899) Subcutaneous Fat Loss Assessment: Mild fat loss (02/22/20899) Muscle Wasting Assessment: Mild (02/22/20899) Percentage of Energy: < 50% for > or equal to 5 days (severe-acute) (02/22/20899) Percentage of Weight Loss: Unable to assess(adm wt was stated) (02/22/20899) Labs: Evaluate Triglycerides;Evaluate CMP/BMP daily until stable (02/22/20899) PPN/TPN: TPN/PPN recommended (02/22/20899) Discharge medications and new prescriptions: Medication List START taking these medications dicyclomine 10 mg capsule Commonly known as: BENTYL Take 2 Capsules (20 mg) by mouth 3 times daily before meals for 7 days. Signed by: Vignesh Badillo MD Quantity: 42 Capsule Refills: 0 itkuwh-rvltndch-ygtlwkt DR 12,000-38,000-60,000 unit capsule Commonly known as: CREON Take 2 Capsules by mouth 3 times daily with meals for 7 days. Signed by: Vignesh Badillo MD Quantity: 42 Capsule Refills: 0 nortriptyline 25 mg capsule Commonly known as: PAMELOR Take 1 Capsule (25 mg) by mouth daily at bedtime for 14 days. Signed by: Vignesh Badillo MD Quantity: 14 Capsule Refills: 0 oxyCODONE 5 mg tablet Commonly known as: ROXICODONE Take 1 Tablet (5 mg) by mouth every 6 hours as needed for Pain. Max Daily Amount: 20 mg Signed by: Vignesh Badillo MD Quantity: 12 Tablet Refills: 0 CHANGE how you take these medications insulin glargine 100 unit/mL injection Commonly known as: LANTUS What changed: additional instructions Inject 20 units in the morning. Signed by: Vignesh Badillo MD Quantity: 30 mL Refills: 1 CONTINUE taking these medications citalopram 40 mg tablet Commonly known as: CeleXA Take 40 mg by mouth daily at bedtime. Refills: 0 empagliflozin 25 mg tablet Commonly known as: JARDIANCE Take 1 tablet by mouth early in the morning. Signed by: Prudence Gates MD Quantity: 30 Tablet Refills: 6 fenofibrate 160 mg Tablet Commonly known as: LOFIBRA Take 1 Tab by mouth daily. Signed by: Prudence Gates MD Quantity: 90 Tab Refills: 0 FreeStyle Raymundo 14 Day Sensor Kit 1 sensor every 14 days Signed by: Prudence Gates MD Quantity: 2 Kit Refills: 6 Generic drug: flash glucose sensor insulin aspart 100 unit/mL injection Commonly known as: NovoLOG Inject 1 Units by subcutaneous injection. 25 units with each meal Refills: 0 levothyroxine 200 mcg tablet Commonly [...] Gates MD Quantity: 60 Tablet Refills: 0 Where to Get Your Medications These medications were sent to [facility]/pharmacy #[id number] [place], [place] - [address] [place] [id number] ?? dicyclomine 10 mg capsule ?? dusman-cocoebli-dwohxdr DR 12,000-38,000-60,000 unit capsule ?? nortriptyline 25 mg capsule ?? oxyCODONE 5 mg tablet Information about where to get these medications is not yet available Ask your nurse or doctor about these medications ?? insulin glargine 100 unit/mL injection Consultants: IP CONSULT TO HOSPITALIST IP CONSULT TO NUTRITION SERVICES IP CONSULT TO ENDOCRINOLOGY IP CONSULT TO NUTRITION SERVICES IP CONSULT TO GI IP CONSULT TO GI Brief Synopsis of Diagnostic Studies This Admission (Please see full report for details): CT Abd/Pelvis 02/15/2020: IMPRESSION: 1. Acute pancreatitis. Nonspecific 9 mm hypodense lesion in the distal aspect of the pancreas. 2. Right adnexal cyst measuring up to 4.9 cm, unchanged from the prior CT. CT Abd/Pelvis 02/26/2020: IMPRESSION: ?? Trace right pleural effusion and bibasilar atelectasis. ?? Residual peripancreatic infiltrative change, improved from prior examination. Hypodense pancreatic tail lesion again noted, likely pseudocyst in the setting of pancreatitis. Discharge Lab Data (Please note date of lab as some may have preceeded admission) Lab Results Component Value Date/Time WBC 8.4 02/28/2020 09:42 AM HEMOGLOBIN 12.1 02/28/2020 09:42 AM HEMATOCRIT 38.3 02/28/2020 09:42 AM PLATELETS 362 (H) 02/28/2020 09:42 AM SODIUM 137 02/28/2020 09:42 AM CHLORIDE 101 02/28/2020 09:42 AM POTASSIUM 4.3 02/28/2020 09:42 AM CO2 28 02/28/2020 09:42 AM BUN 10 02/28/2020 09:42 AM CREATININE 0.55 02/28/2020 09:42 AM GLUCOSE 239 (H) 02/28/2020 09:42 AM INR 1.0 05/24/2019 10:30 AM AST 02/16/2020 09:20 AM Comment: Unable to result due to lipemia. Unable to evaluate due to lipemia. ALT 02/16/2020 09:20 AM Comment: Unable to result due to lipemia. Unable to evaluate due to lipemia. CRP 115.8 (H) 08/23/2018 07:04 AM Discharge Exam: BP 125/77 (BP Location: Right arm, Patient Position (BP): Sitting) Pulse 74 Temp 98.4 ??F (36.9??C) (Oral) Resp 16 Ht 5' 5 (1.651 m) Wt 84.6 kg (186 lb 8 oz) SpO2 98% No BMI 31.04 kg/m?? Last documented weight: Weight: 84.6 kg (186 lb 8 oz) (02/27/20 0523) Physical Exam: Physical Exam Constitutional: She is oriented to person, place, and time. She appears well- developed and well-nourished. HENT: Head: Normocephalic and atraumatic. Eyes: EOM are normal. Neck: Neck supple. Cardiovascular: Normal rate and regular rhythm. No murmur heard. Pulmonary/Chest: Effort normal and breath sounds normal. Abdominal: Soft. Bowel sounds are normal. She exhibits no distension. There is no abdominal tenderness. Musculoskeletal: General: No edema. Neurological: She is alert and oriented to person, place, and time. No cranial nerve deficit. Psychiatric: She has a normal mood and affect. Her behavior is normal. Discharge Condition: improved to baseline. Activity: activity as tolerated. Diet: Low fat diet Wound Care: None needed Primary Emergency Contact: Extended Emergency Contact Information Primary Emergency Contact: RobertJosé Miguel [facility] Mobile Relation: Spouse Signed: Kortney Ray DO 02/29/2020, 2:12 AM WELDER Associated attestation - Karen Thomas MD - 03/01/2020 3:15 PM TIG WELDER [facility] Adult Hospitalist Attending Note I reviewed the medical record including the resident???s note (Dr Badillo) (available as hyperlink below). I was present with the resident and participated during the history and physical examination of the patient on Saturday February 29, 2020. The laboratory findings and assessment and plan was reviewed with the resident. I also performed the critical or santos portion(s) of the service as documentedbelow, and was directly involved in the management of the patient and supervised the care provided. Feeling much better, tolerating diet, no further use of IV dilaudid I have reviewed the physical exam findings in the resident???s note; my notable physical exam findings include: Abd Soft, mildly tender to palpation over epigastrium, bowel sounds present I have reviewed the labs that were obtained over the last 24 hours. Notable amendments to the assessment and plan include: Active Hospital Problems Diagnosis Moderate protein-calorie malnutrition Uncontrolled type 2 diabetes mellitus with hyperglycemia Acute on chronic pancreatitis Acquired hypothyroidism Type 2 diabetes mellitus without complication, with long-term current use of insulin Tobacco use Hypertriglyceridemia Chylomicronemia syndrome Depression with anxiety Resolved Hospital Problems No resolved problems to display. Acute on chronic pancreatitis - Continue creon, nortriptyline and bentyl per GI recs, tolerating diet this morning. Will give short course of oxycodone as pain is dramatically improving. Education provided regarding opiates - do not take more than directed, try to use the lowest dose/frequency possible, and made patient aware of additive potential. Patient is also aware to not drive while taking this medication and to store in a safe place. This dose was used while admitted without difficulty or apparent adverse effect. DM - Appreciate endocrinology recs; Start 20U basal insulin tomorrow with close endocrinology follow-up Moderate PCMN - Tolerating better diet, work to increase as outpatient See resident note for additional details. Karen Thomas MD 03/01/2020 3:05 PM [facility] Hospitalist Approximately 25 minutes was spent in the care of this patient today; more than 50% was spent in counseling and coordination of care (patient/family conference, nursing conference and/or discussion with consultants). This patient is covered by internal medicine residents; per ACGME guidelines residents must write orders for patients under their care, with appropriate supervision by the attending physician . Please contact the attending physician on covered patients only if you are unable to reach the resident,or if you have an emergency. To reach Internal Medicine covered patients: Saturday-Saturday 7 AM- 7 PM: Please contact the resident via secure chat. The resident responsible for the patient will be on the Treatment Team listed as Resident If no response you may call the refrigeration specialist editing intern at zone phone [phone]. If no response you may call the refrigeration specialist senior resident at zone phone [phone] If no response please contact the attending of record via secure chat. 7 PM to 7 AM: The long call/night float resident should be listed as Resident on the treatment team and can be reached via secure chat. If no response you may call the refrigeration specialist editing intern at zone phone [phone]. If no response you may call the refrigeration specialist senior resident at zone phone [phone] Saturday and Saturday: 7 AM-12 PM: Please contact the resident via secure chat. The resident responsible for the patient will be on the Treatment Team listed as Resident 12 PM-7 AM: The long call/night float resident should be listed as Resident on the treatment teamand can be reached via secure chat. If no response call the refrigeration specialist editing intern at zone phone [phone]. If no response you may call the refrigeration specialist senior resident at zone phone [phone] If no response please contact the Rapid Access Hospitalist via secure chat. documented in this encounter Discharge Instructions * Discharge Instructions* Vignesh Badillo MD - 02/29/2020 12:11 PM TIG WELDER Your discharging physicians are Karen Thomas MD /Kortney Ray DO and may be reached at [phone] for any questions or concerns until you see your primary care physician. FOLLOW-UP Follow up with Guerrero Middleton PA-C within 7 days of discharge. This post hospital follow up visit presents a critical opportunity to address the conditions that precipitated your hospitalization andto review the new medications prescribed to your during your stay. Follow up with Dr. Vega, Gastroenterology in 2 weeks. Call [phone] to make an appointment Follow up with Dr. Mayer for apheresis. It is important for you not to skip Apharesis Follow up with [facility] Endocrinology. Call [phone] to schedule a follow up in 2 weeks PRESCRIPTIONS GIVEN? Escribed Start taking Creon ( Pancreatic enzyme) with meals three times a day Take Oxycodone as needed 6 hours apart for abdominal pain Take Bentyl with meals three times a day Take Nortriptyline daily at bedtime for abdominal pain Your dose of Glargine insulin has been cut back to 20 Units daily. Make a log of your blood sugars and follow up with [facility] Endocrinology SELF CARE: getting rest, eating well and increasing your activity appropriately are all excellent ways to return to your usual state of health prior to this hospital stay. ACTIVITY: Your activity level is: no restrictions. DIET Your diet is: low fat. WELDER documented in this encounter Medications at Time of Discharge Medication Sig Dispensed Refills Start Date End Date traZODone (DESYREL) 100 mg tablet Take 100 mg by mouth daily at bedtime . levothyroxine 200 mcg tablet Take 200 mcg by mouth. 10/28/2018 09/26/2023 metFORMIN (GLUCOPHAGE) 500 mg tablet Take 500 mg by mouth 2 times daily. 06/05/2018 09/26/2023 obgbgq-wsrnslmk-ilonn se MULLINS (CREON) 12,000-38,000-60,000 unit capsuleIndications:Re current pancreatitis Take 2 Capsules by mouth 3 times daily with meals for 7 days. 42 Capsule 02/29/2020 03/07/2020 nortriptyline (PAMELOR) 25 mg capsule Take 1 Capsule (25 mg) by mouth daily at bedtime for 14 days. 14 Capsule 02/29/2020 03/14/2020 oxyCODONE (ROXICODONE) 5 mg tabletIndications:Acu te on chronic pancreatitis Take 1 Tablet (5 mg) by mouth every 6 hours as needed for Pain. Max Daily Amount: 20 mg 12 Tablet 02/29/2020 03/03/2020 dicyclomine (BENTYL) 10 mg capsule Take 2 Capsules (20 mg) by mouth 3 times daily before meals for 7 days. 42 Capsule 02/29/2020 03/07/2020 insulin glargine (LANTUS) 100 unit/mL injection Inject 20 units in the morning. 30 mL 1 02/29/2020 05/16/2020 empagliflozin (JARDIANCE) 25 mg tablet Take 1 tablet by mouth early in the morning. 30 Tablet 6 12/23/2019 12/07/2020 varenicline (Chantix) 0.5 mg Tablet Take 1 Tablet (0.5 mg) by mouth 2 times daily. 60 Tablet 12/14/2019 09/19/2023 flash glucose sensor (FreeStyle Raymundo 14 Day Sensor) Kit 1 sensor every [...] as of this encounter Progress Notes * Carole Nam RN - 02/29/2020 2:00 PM CST DC instructions given, no concerns expressed Casandra walked out with her WELDER * Nrey Viramontes NP - 02/29/2020 10:21 AM CST Name: Casandra Doss : 1975 Date: 02/29/2020 Room/Bed: [facility] Hospital Day: LOS: 14 days SUBJECTIVE: Patient up ambulating in the room Anticipates cor marcellus removal and discharge home today Tolerating nutrition w/o nausea, abdominal pain REVIEW OF SYSTEMS: Constitutional: denies fevers, chills, sweats, fatigue, malaise, anorexia, weight loss Respiratory: denies cough, dyspnea, hemoptysis, stridor, wheeze, chest pain Cardiovascular: denies chest pain or discomfort, exertional chest pressure/discomfort, fatigue, pounding heart/chest, nausea, syncope, shortness of breath Gastrointestinal: denies abdominal pain, change in bowel habits, constipation, diarrhea, dyspepsia,dsyphagia, hematochezia, reflux symptoms, vomiting Endocrine: denies sudden changes in mood, temperature intolerance, polyuria, polydipsia, skin changes Allergies Allergen Reactions ??? Green Pepper Hives ??? Adhesive Unknown ??? Aspartame Headache All artificial sweeteners. ??? Adhesive Tape-Silicones Hives Exam: Vitals: 02/28/20 0432 02/28/20 1242 02/28/20 2123 02/29/20 0415 BP: 105/62 122/72 125/77 126/73 BP Location: Right arm Right arm Right arm Right arm Patient Position (BP): Supine Sitting Sitting Supine Pulse: 76 74 77 Resp: 16 16 16 Temp: 98.3 ??F (36.8 ??C) 98.4 ??F (36.9 ??C) 98 ??F (36.7 ??C) TempSrc: Oral Oral Oral SpO2: 98% 98% 93% Weight: 86.7 kg (191 lb 3.2 oz) Height: EXAM Gen: alert and oriented Cardiac: rrr RESP: ctab ABD: bs+ Lab Results Component Value Date/Time NA 137 [...] 07:05 AM Lab Results Component Value Date/Time CHOLTOT 162 02/01/2019 10:15 PM HDL 30 (L) 02/01/2019 10:15 PM LDLCALC 02/01/2019 10:15 PM Comment: Calculated LDL is not accurate when the Triglyceride value exceeds 400. LDLDIRECT 110 08/10/2011 07:21 AM TRIGLYCERIDE 300 (H) 02/25/2020 06:35 AM ASSESSMENT AND PLAN: Type 2 diabetes mellitus. Patient tolerating nutrition OK; TF stopped this AM; Reduced Lantus to 12units, 4 units TID + ldssi Humalog with meals. POC BS ACHS and PRN. Diet fat control. Patient takes35 units basal insulin at home - no insulin at meals. At discharge, recommend starting 20 units basal insulin; f/u with [facility] Endocrine with blood sugar log. Hypertriglyceredemia. Plasma pheresis T/W/ last week; Continue Statin and Fenofibrate. Fat control diet; GI consulted, recommend follow outpatient. Acute on chronic pancreatitis. Pain control per primary team Hypothyroidism. Levothyroxine 200 mcg daily; follow up in 6 weeks outpt Recommendations were discussed with Dr. Rudd, patient, hospitalist, and nursing staff. Please page with questions. STELLA Bright CDTima 7A - 7P [phone] cell # 7P - 7A [phone] pager WELDER Associated attestation - Blake Rudd MD - 02/29/2020 12:42 PM TIG WELDER Discussed with RICE MILLING SUPERVISOR. Agree with documentation. * Kortney Ray DO - 02/28/2020 8:07 PM CST Brief Cross-Cover Note Received secure chat from nurse regarding: changing all medications from NG to oral given stopping tube feeds Reviewed chart. Plan: changed all medications to PO Please do not hesitate to call back if there are any other concerns. Kortney Ray DO Internal Medicine, PGY2 This patient is covered by internal medicine residents To reach Internal Medicine covered patients: Saturday-Saturday 7 AM- 5 PM: Via secure text, if resident does not answer please page via the [employer] E-List 5 PM-7 AM: Via secure text (refrigeration specialist editing intern will place themselves on the treatment team). If the resident does not answer call the zone phone [phone]. If no response please page the senior resident at [phone] Saturday and Saturday: 7 AM-12 PM: Via secure text, if resident does not answer please page via the [employer] E-List 12 PM-7 AM: Via secure text (refrigeration specialist editing intern will place themselves on the treatment team). If the resident does not answer call the [employer] phone [phone]. If no response please page the senior resident [phone] If no response to the above steps in 10 minutes, please page the attending physician via secure text or via the [employer]-list. WELDER * Vignesh Badillo MD - 02/28/2020 12:56 PM CST [facility] Resident Progress Note Patient Name: Casandra Mccray Robert Attending Physician: Karen Thomas MD Primary Care Provider: Guerrero Middleton PA-C Date of Admission: 02/15/2020 Date of Service: 02/28/2020 Length of Stay: LOS: 13 days Previous history of present illness and review of systems have been reviewed today as documented inthe H&P on 02/15/2020; medications, labs, studies, notes, orders and consults have been reviewed. I have reviewed the notes from admission. Assessment and Plan: Active Problems: 1. Recurrent pancreatitis: Secondary to hypertriglyceridemia ?? On tube feeds. Plan to taper tube feeds to 30 mils per hour and stop today evening. Plan to remove NG tube tomorrow if patient does well with oral diet overnight. ?? Continue low residue diet ?? Zofran as needed for nausea ?? Pain management: Doing well off Dilaudid ?? GI following. Appreciate recommendations 2. Hypertriglyceridemia: Undergoes monthly a pheresis ?? Continue home dose of fenofibrate and rosuvastatin 3. Insulin-dependent type 2 diabetes mellitus: Lantus changed to 12 units daily with 3 units 3 times daily with meals and sliding scale insulin. Endocrinology consulted to help with management of blood sugar. Home regimen: Lantus 35 units, aspart 25 units 3 times daily, Metformin 1 g twice daily, empagliflozin 25 units daily 4. Hypodensity in distal pancreas: Pseudocyst versus infective etiology ?? Follow-up with GI as outpatient for endoscopic ultrasound 5. Hypothyroidism: Continue levothyroxine 200 mcg. Repeat TSH in 4 to 6 weeks as outpatient Nutrition: Current Diet and/or Nutritional Supplementation ordered: DIET FAT CONTROL DIET TUBE FEEDING High Protein,; Elemental 1.0, Nutrition Diagnosis: Moderate protein-calorie malnutrition (02/22/20899) Subcutaneous Fat Loss Assessment: Mild fat loss (02/22/20899) Muscle Wasting Assessment: Mild (02/22/20899) Percentage of Energy: < 50% for > or equal to 5 days (severe-acute) (02/22/20899) Percentage of Weight Loss: Unable to assess(adm wt was stated) (02/22/20899) Labs: Evaluate Triglycerides;Evaluate CMP/BMP daily until stable (02/22/20899) PPN/TPN: TPN/PPN recommended (02/22/20899) Chronic/Stable/Resolved Problems: 1. GERD: Continue Protonix 2. Depression: Continue Celexa Quality/Safety/Core Measures/Disposition Planning: DVT PRX:Enoxaparin Indwelling Lines/Devices: Peripheral IV and NG tube [place]: absent; reason: N/A Patient's activity prior to admission: independent Patient lives with their family in a single family home PT and OT: Yes PT POC OT POC Code Status: Full Code Current Planned Disposition - Home which I anticipate will be completed 24- 48 hours Subjective/Events Overnight : No acute overnight events. Patient tolerated her diet well. She complained of some nausea without vomiting. Denies abdominal pain. She reports having loose stools. Objective BP 122/72 (BP Location: Right arm, Patient Position (BP): Sitting) Pulse 76 Temp 98.3 ??F (36.8??C) (Oral) Resp 16 Ht 5' 5 (1.651 m) Wt 84.6 kg (186 lb 8 oz) SpO2 98% No BMI 31.04 kg/m?? Temp (24hrs), Av.2 ??F (36.8 ??C), Min:98 ??F (36.7 ??C), Max:98.4 ??F (36.9??C) Large amount stool (02/27/20 1412) Exam: Physical Exam Constitutional: She is oriented to person, place, and time. She appears well- developed and well-nourished. HENT: Head: Normocephalic and atraumatic. Eyes: EOM are normal. No scleral icterus. Cardiovascular: Normal rate, regular rhythm and normal heart sounds. No murmur heard. Pulmonary/Chest: Effort normal and breath sounds normal. Abdominal: Soft. Bowel sounds are normal. She exhibits no distension. There is no abdominal tenderness. There is no rebound and no guarding. Musculoskeletal: General: No edema. Neurological: She is alert and oriented to person, place, and time. No cranial nerve deficit. Skin: Skin is warm and dry. Psychiatric: She has a normal mood and affect. Her behavior is normal. Data: I have reviewed all new labs and studies resulted and pertinent ones are noted below CBC: Recent Labs 02/27/20 0842 02/28/20 0942 WBC 7.2 8.4 HGB 11.2* 12.1 HCT 35.1* 38.3 PLT 315 362* MCV 92.6 91.2 BMP: Recent Labs 02/26/20 0711 02/27/20 0842 02/28/20 0942 NA 142 136 137 K 3.3* 3.8 4.3 CL 106 102 101 CO2 27 27 28 ANIONGAP 9 7* 8 CA 8.6 8.2* 9.1 GLUCOSE 178* 240* 239* BUN 4* 6 10 CREAT 0.52 0.50* 0.55 Results for orders placed during the hospital encounter of 02/15/20 CT ABDOMEN PELVIS W CONTRAST Narrative CT ABDOMEN PELVIS W CONTRAST DATE: 02/26/2020 10:25 PM CLINICAL INFORMATION: Left upper quadrant pain COMPARISON: CT abdomen and pelvis 02/15/2020 PROCEDURE: Axial images were obtained from the lung bases through the ischial tuberosities following the administration of intravenous contrast. Oral contrast was not administered. Multiplanar reformatted images were reviewed. The examination was performed with the adjustment of mA according to the patient size and/or the use of Iterative 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 FINDINGS: LOWER CHEST: Trace right pleural effusion and bibasilar atelectasis. LIVER: Within normal limits GALLBLADDER: Within normal limits. BILE DUCTS: Within normal limits. PANCREAS: Mild residual peripancreatic infiltrative change. Hypodense pancreatic tail lesion again noted. SPLEEN: Within normal limits. ADRENALS: Within normal limits. KIDNEYS/URETERS: Congenital left renal malrotation. BLADDER: Within normal limits. REPRODUCTIVE ORGANS: Hysterectomy. BOWEL/MESENTERY: No bowel obstruction or wall thickening. Appendix not visualized. Enteric tube in the proximal jejunum. PERITONEUM/RETROPERITONEUM: Trace pelvic ascites. No free air. No significant lymphadenopathy. VESSELS: Aortic and iliac artery calcifications. ABDOMINAL WALL: Within normal limits. BONES: Degenerative spine changes. Impression IMPRESSION: Trace right pleural effusion and bibasilar atelectasis. Residual peripancreatic infiltrative change, improved from prior examination. Hypodense pancreatic tail lesion again noted, likely pseudocyst in the setting of pancreatitis. DICTATION LOCATION: Location 1 - [facility] Vignesh Badillo MD 02/28/2020 12:56 PM I discussed the assessment of plan for the above patient with Karen Roman MD This note may have been transcribed using [employer] speaking [employer] voice recognition without a human western felt hat blocker. This report may or may not have been adjusted for typographical, grammatical and syntax errors. This patient is covered by internal medicine residents To reach Internal Medicine covered patients: Saturday-Saturday 7 AM- 7 PM: Please contact the resident via secure chat. The resident responsible for the patient will be on the Treatment Team listed as Resident If no response you may call the refrigeration specialist editing intern at zone phone [phone]. If no response you may call the refrigeration specialist senior resident at zone phone [phone] If no response please contact the attending of record via secure chat. 7 PM to 7 AM: The long call/night float resident should be listed as Resident on the treatment team and can be reached via secure chat. If no response you may call the refrigeration specialist editing intern at zone phone [phone]. If no response you may call the refrigeration specialist senior resident at zone phone [phone] If no response please contact the Rapid [...] secure chat. If no response call the refrigeration specialist editing intern at zone phone [phone]. If no response you may call the refrigeration specialist senior resident at zone phone [phone] If no response please contact the [facility] Access Hospitalist via secure chat WELDER Associated attestation - Karen Thomas MD - 03/01/2020 3:13 PM TIG WELDER [facility] Adult Hospitalist Attending Note I reviewed the medical record including the resident???s note (Dr Badillo) (available as hyperlink below). I was present with the resident and participated during the history and physical examination of the patient on 02/28/2020. The laboratory findings and assessment and plan was reviewed with the resident. I also performed the critical or santos portion(s) of the service as documented below, and wasdirectly involved in the management of the patient and supervised the care provided. Tolerating diet, but still having some mild nausea. Abdominal pain is improving. I have reviewed the physical exam findings in the resident???s note; my notable physical exam findings include: HEENT Tube in place Soft, tender to palpation over upper abdomen I have reviewed the labs that were obtained over the last 24 hours. Notable amendments to the assessment and plan include: Active Hospital Problems Diagnosis Moderate protein-calorie malnutrition Uncontrolled type 2 diabetes mellitus with hyperglycemia Acute on chronic pancreatitis Acquired hypothyroidism Type 2 diabetes mellitus without complication, with long-term current use of insulin Tobacco use Hypertriglyceridemia Chylomicronemia syndrome Depression with anxiety Resolved Hospital Problems No resolved problems to display. Acute on chronic pancreatitis - Taper tube feeds down, monitor oral intake. If diet doing well, plan to D/C corpak tomorrow. Stop IV dialudid, wean oxycodone as able See resident note for additional details. Karen Thomas MD 03/01/2020 3:09 PM [facility] Hospitalist Approximately 25 minutes was spent in the care of this patient today; more than 50% was spent in counseling and coordination of care (patient/family conference, nursing conference and/or discussion with consultants). This patient is covered by internal medicine residents; per ACGME guidelines residents must write orders for patients under their care, with appropriate supervision by the attending physician . Please contact the attending physician on covered patients only if you are unable to reach the resident,or if you have an emergency. To reach Internal Medicine covered patients: Saturday-Saturday 7 AM- 7 PM: Please contact the resident via secure chat. The resident responsible for the patient will be on the Treatment Team listed as Resident If no response you may call the refrigeration specialist editing intern at zone phone [phone]. If no response you may call the refrigeration specialist senior resident at zone phone [phone] If no response please contact the attending of record via secure chat. 7 PM to 7 AM: The long call/night float resident should be listed as Resident on the treatment team and can be reached via secure chat. If no response you may call the refrigeration specialist editing intern at zone phone [phone]. If no response you may call the refrigeration specialist senior resident at zone phone [phone] Saturday and Saturday: 7 AM-12 PM: Please contact the resident via secure chat. The resident responsible for the patient will be on the Treatment Team listed as Resident 12 PM-7 AM: The long call/night float resident should be listed as Resident on the treatment teamand can be reached via secure chat. If no response call the refrigeration specialist editing intern at zone phone [phone]. If no response you may call the refrigeration specialist senior resident at zone phone [phone] If no response please contact the [facility] Hospitalist via secure chat. * Last Grijalva MD - 02/28/2020 8:07 AM CST INPATIENT GASTROENTEROLOGY PROGRESS NOTE Casandra Doss 1975 02/28/2020 8:07 AM Subjective: She tolerated a regular diet well. She did not experience significant increased pain, nausea or vomiting with oral intake. She did take Creon with her meals. Intake/Output Summary (Last 24 hours) at 02/28/2020 0807 Last data filed at 02/28/2020 0100 Gross per 24 hour Intake 3835.99 ml Output -- Net 3835.99 ml BP 105/62 (BP Location: Right arm, Patient Position (BP): Supine) Pulse 72 Temp 98 ??F (36.7 ??C) (Oral) Resp 16 Ht 5' 5 (1.651 m) Wt 84.6 kg (186 lb 8 oz) SpO2 97% No BMI 31.04 kg/m?? Physical Exam: General: No acute discomfort. HEENT: Anicteric Lungs: Adequate air movement Heart: S1-S2 Abdomen: Tender in epigastrium. No peritoneal irritation. Soft. Bowel sounds present. Labs/Imaging: Lab Results Component Value Date/Time WBC 7.2 02/27/2020 08:42 AM HEMOGLOBIN 11.2 (L) 02/27/2020 08:42 AM HEMATOCRIT 35.1 (L) 02/27/2020 08:42 AM PLATELETS 315 02/27/2020 08:42 AM MCV 92.6 02/27/2020 08:42 AM Lab Results Component Value Date/Time SODIUM 136 02/27/2020 08:42 AM POTASSIUM 3.8 02/27/2020 08:42 AM CHLORIDE 102 02/27/2020 08:42 AM CO2 27 02/27/2020 08:42 AM CALCIUM 8.2 (L) 02/27/2020 08:42 AM BUN 6 02/27/2020 08:42 AM CREATININE 0.50 (L) 02/27/2020 08:42 AM GLUCOSE 240 (H) 02/27/2020 08:42 AM TOTAL PROTEIN 6.3 (L) 02/16/2020 09:20 AM ALBUMIN 3.6 02/16/2020 09:20 AM BILIRUBIN TOTAL <0.2 (L) 02/16/2020 09:20 AM ALKALINE PHOSPHATASE 81 02/16/2020 09:20 AM AST 02/16/2020 09:20 AM Comment: Unable to result due to lipemia. Unable to evaluate due to lipemia. ALT 02/16/2020 09:20 AM Comment: Unable to result due to lipemia. Unable to evaluate due to lipemia. ANION GAP 7 (L) 02/27/2020 08:42 AM Imaging Studies: Results for orders placed during the hospital encounter of 02/15/20 CT ABDOMEN PELVIS W CONTRAST Narrative CT ABDOMEN PELVIS W CONTRAST DATE: 02/26/2020 10:25 PM CLINICAL INFORMATION: Left upper quadrant pain COMPARISON: CT abdomen and pelvis 02/15/2020 PROCEDURE: Axial images were obtained from the lung bases through the ischial tuberosities following the administration of intravenous contrast. Oral contrast was not administered. Multiplanar reformatted images were reviewed. The examination was performed with the adjustment of mA according to the patient size and/or the use of Iterative 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 FINDINGS: LOWER CHEST: Trace right pleural effusion and bibasilar atelectasis. LIVER: Within normal limits GALLBLADDER: Within normal limits. BILE DUCTS: Within normal limits. PANCREAS: Mild residual peripancreatic infiltrative change. Hypodense pancreatic tail lesion again noted. SPLEEN: Within normal limits. ADRENALS: Within normal limits. KIDNEYS/URETERS: Congenital left renal malrotation. BLADDER: Within normal limits. REPRODUCTIVE ORGANS: Hysterectomy. BOWEL/MESENTERY: No bowel obstruction or wall thickening. Appendix not visualized. Enteric tube in the proximal jejunum. PERITONEUM/RETROPERITONEUM: Trace pelvic ascites. No free air. No significant lymphadenopathy. VESSELS: Aortic and iliac artery calcifications. ABDOMINAL WALL: Within normal limits. BONES: Degenerative spine changes. Impression IMPRESSION: Trace right pleural effusion and bibasilar atelectasis. Residual peripancreatic infiltrative change, improved from prior examination. Hypodense pancreatic tail lesion again noted, likely pseudocyst in the setting of pancreatitis. DICTATION LOCATION: Location 1 - [facility] Impression/Plan: At this juncture, I would recommend she continue a low-fat diet with pancreatic enzyme supplementation. We should consider tapering or discontinuing the tube feeds. If she tolerates diet today, we could also consider discontinuing her nasoenteric tube. Once again, she realizes that long-term management of pancreatitis will hinge upon adequate controlof hypertriglyceridemia. We discussed the role of an endoscopic ultrasound in the future to better define pancreatic ductal anatomy, exclude stricture or intraductal stone and to define the presence or absence of chronic pancreatitis. We will defer this for the time being. We would be happy to see her in follow-up in the office. We will sign off but remain available if gastrointestinal issues arise or if additional GI input needed . Last Grijalva MD [facility] Digestive Disease Pager: [phone] WELDER * Blake Rudd MD - 02/28/2020 7:38 AM CST Pt now tolerating diet somewhat. Start prandial insulin 3 units with meal + SS. TF's also going which makes insulin coverage challenging. Please notify me if TFs are stopped. Call with questions. [phone] WELDER * Last Grijalva MD - 02/27/2020 7:27 PM CDT INPATIENT GASTROENTEROLOGY PROGRESS NOTE Casandra Doss 1975 02/27/2020 7:27 PM Subjective: Tolerating clear liquids well. Still some epigastric pain though improved. No vomiting. Bowels moving. Loose relationship to tube feeds. Intake/Output Summary (Last 24 hours) at 02/27/20201926 Last data filed at 02/27/2020 1754 Gross per 24 hour Intake 5018.99 ml Output -- Net 5018.99 ml BP 126/81 (BP Location: Left arm, Patient Position (BP): Supine) Pulse 75 Temp 98.2 ??F (36.8 ??C) (Oral) Resp 18 Ht 5' 5 (1.651 m) Wt 84.6 kg (186 lb 8 oz) SpO2 96% No BMI 31.04 kg/m?? Physical Exam: General: No acute discomfort. HEENT: Anicteric Lungs: Adequate air movement Heart: S1-S2 Abdomen: Tender in epigastrium. No peritoneal irritation. Soft. Bowel sounds present. Labs/Imaging: Lab Results Component Value Date/Time WBC 7.2 02/27/2020 08:42 AM HEMOGLOBIN 11.2 (L) 02/27/2020 08:42 AM HEMATOCRIT 35.1 (L) 02/27/2020 08:42 AM PLATELETS 315 02/27/2020 08:42 AM MCV 92.6 02/27/2020 08:42 AM Lab Results Component Value Date/Time SODIUM 136 02/27/2020 08:42 AM POTASSIUM 3.8 02/27/2020 08:42 AM CHLORIDE 102 02/27/2020 08:42 AM CO2 27 02/27/2020 08:42 AM CALCIUM 8.2 (L) 02/27/2020 08:42 AM BUN 6 02/27/2020 08:42 AM CREATININE 0.50 (L) 02/27/2020 08:42 AM GLUCOSE 240 (H) 02/27/2020 08:42 AM TOTAL PROTEIN 6.3 (L) 02/16/2020 09:20 AM ALBUMIN 3.6 02/16/2020 09:20 AM BILIRUBIN TOTAL <0.2 (L) 02/16/2020 09:20 AM ALKALINE PHOSPHATASE 81 02/16/2020 09:20 AM AST 02/16/2020 09:20 AM Comment: Unable to result due to lipemia. Unable to evaluate due to lipemia. ALT 02/16/2020 09:20 AM Comment: Unable to result due to lipemia. Unable to evaluate due to lipemia. ANION GAP 7 (L) 02/27/2020 08:42 AM Imaging Studies: Results for orders placed during the hospital encounter of 02/15/20 CT ABDOMEN PELVIS W CONTRAST Narrative CT ABDOMEN PELVIS W CONTRAST DATE: 02/26/2020 10:25 PM CLINICAL INFORMATION: Left upper quadrant pain COMPARISON: CT abdomen and pelvis 02/15/2020 PROCEDURE: Axial images were obtained from the lung bases through the ischial tuberosities following the administration of intravenous contrast. Oral contrast was not administered. Multiplanar reformatted images were reviewed. The examination was performed with the adjustment of mA according to the patient size and/or the use of Iterative 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 FINDINGS: LOWER CHEST: Trace right pleural effusion and bibasilar atelectasis. LIVER: Within normal limits GALLBLADDER: Within normal limits. BILE DUCTS: Within normal limits. PANCREAS: Mild residual peripancreatic infiltrative change. Hypodense pancreatic tail lesion again noted. SPLEEN: Within normal limits. ADRENALS: Within normal limits. KIDNEYS/URETERS: Congenital left renal malrotation. BLADDER: Within normal limits. REPRODUCTIVE ORGANS: Hysterectomy. BOWEL/MESENTERY: No bowel obstruction or wall thickening. Appendix not visualized. Enteric tube in the proximal jejunum. PERITONEUM/RETROPERITONEUM: Trace pelvic ascites. No free air. No significant lymphadenopathy. VESSELS: Aortic and iliac artery calcifications. ABDOMINAL WALL: Within normal limits. BONES: Degenerative spine changes. Impression IMPRESSION: Trace right pleural effusion and bibasilar atelectasis. Residual peripancreatic infiltrative change, improved from prior examination. Hypodense pancreatic tail lesion again noted, likely pseudocyst in the setting of pancreatitis. DICTATION LOCATION: Location 1 - [facility] Impression/Plan: At this juncture, I feel it would be safe to advance her diet. She does not consider a full liquid diet but would rather transition to a low residue diet she also asked that we do not strict Nabila Mist. I have messaged Dr. Rudd to let them know our plan so that we can adjust insulin appropriately. Will provide pancreatic enzyme supplementation with meals. She realizes that long-term management of pancreatitis will hinge upon adequate control of hypertriglyceridemia. We discussed the role of an endoscopic ultrasound in the future to better define pancreatic ductal anatomy, exclude stricture or intraductal stone and to define the presence or absence of chronic pancreatitis. Last Grijalva MD [facility] Digestive Disease Pager: [phone] * Ceasar Burnett (Student) - 02/27/2020 10:46 AM CDT [facility] Resident Progress Note Patient Name: Casandra Doss Attending Physician: Karen Thomas MD Primary Care Provider: Guerrero Middleton PA-C Date of Admission: 02/15/2020 Date of Service: 02/27/2020 Length of Stay: LOS: 12 days Previous history of present illness and review of systems have been reviewed today as documented inthe H&P on 02/15/2020; medications, labs, studies, notes, orders and consults have been reviewed. I have reviewed the notes from admission. 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 Low potassium, low-normal mag (02/25) - Repeat CT 02/25 indicates no further progression of inflammation, and no enlargement of pseudocyst Plan: - Pain regimen: oxycodone 10 mg Q6H, decrease dilaudid to 0.3 mg IV Q4H prn, acetaminophen 1 g Q8H,Gabapentin 200 mg Q8H. - GI recs: Suspected to have visceral hypersensitivity, taper narcotics and start Nortriptyline 25mg at bedtime and Bentyl 20mg TID. Advance diet to full liquids and then low fat diet - Senna S BID, Dulcolax QD prn - [place] tube feedings at 60mL/hr; thiamine supplements, replete potassium, magnesium #Chylomicronemia - Undergoes monthly apheresis with port access on right and left chest - TG 300, post-apheresis Plan: - Continue home fenofibrate 160 mg PO QD - Continue home rosuvastatin 20 mg PO QD #Hypodensity in distal Pancreas - Concern for pseudocyst vs infectious etiology (less likely due to down trending WBC) Plan: - Pt will need to f/u with GI as outpatient #Insulin Dependent Type 2 Diabetes Mellitus - INFORMATION ASSURANCE MANAGER regimen: lantus 35 U in AM, aspart 25 U TID with meals, metformin 1 g BID with meals, empagliflozin 25 mg QD in AM, A1c 8.6 - Began tube feedings Plan: - Endo recs on insulin regimen. Continue low dose Humalog SSI - Goal BS 140-180 #Hypothyroidism - TSH 20.5 (02/15) - Free T4 0.32 (02/15) Plan: - Endocrine consulted: recommend 200 mcg levothyroxine qd, repeat TSH in 4-6 weeks #Protein Calorie Malnutrition-Moderate - 2/2 acute pancreatitis - Increasing tube feedings today, watching for Refeeding syndrome Chronic/Stable/Resolved Problems: #GERD - Continue home pantoprazole 40mg #Depression - Continue home Celexa 40 mg #Leukocytosis (resolved) - WBC 6.4 (02/17) - Likely 2/2 acute pancreatitis Plan: - Continue to trend - Will continue to monitor fever curve; concern for possible infected pseudocyst vs pancreatic necrosis #Mild Hyponatremia (resolved) Plan: - Continue to monitor on BMP #Hypocalcemia (resolved) Plan: - Continue to monitor BMP Nutrition: Current Diet and/or Nutritional Supplementation ordered: DIET CLEAR LIQUID Diabetic: Diabetic, DIET TUBE FEEDING High Protein,; Elemental 1.0, Nutrition Diagnosis: Moderate protein-calorie malnutrition (02/22/20 09) Subcutaneous Fat Loss Assessment: Mild fat loss (02/22/20899) Muscle Wasting Assessment: Mild (10/26/20 0900) Percentage of Energy: < 50% for > or equal to 5 days (severe-acute) (02/22/20 09) Percentage of Weight Loss: Unable to assess(adm wt was stated) (02/22/20 09) Labs: Evaluate Triglycerides;Evaluate CMP/BMP daily until stable (02/22/20 09) PPN/TPN: TPN/PPN recommended (02/22/20899) Quality/Safety/Core Measures/Disposition Planning: DVT PRX:Enoxaparin Indwelling Lines/Devices: [place]: absent; reason: N/A Patient's activity prior to admission: independent Patient lives with their family in a single family home PT and OT: Yes PT POC OT POC Code Status: Full Code Current Planned Disposition - Home which I anticipate will be completed 2-3 days Subjective/Events Overnight: Ms. Doss has been receiving dilaudid, roxicodone, gabapentin, and tylenol for pain associated with acute pancreatitis. She states her baseline pain is 4/10. Pain will increase to 6/10 and states it is made worse by drinking liquids. No acute events occurred overnight. Objective BP 103/59 (BP Location: Left arm, Patient Position (BP): Supine) Pulse 65 Temp 98 ??F (36.7 ??C) (Oral) Resp 16 Ht 5' 5 (1.651 m) Wt 84.6 kg (186 lb 8 oz) SpO2 95% No BMI 31.04 kg/m?? Temp (24hrs), Av.2 ??F (36.8 ??C), Min:98 ??F (36.7 ??C), Max:98.4 ??F (36.9 ??C) Moderate amount stool (02/26/20 1035) Exam: Physical Exam Constitutional: She is oriented to person, place, and time. She appears well-developed. HENT: Head: Normocephalic and atraumatic. Eyes: Conjunctivae and EOM are normal. No scleral icterus. Neck: Normal range of motion. Neck supple. No JVD present. Cardiovascular: Normal rate, regular rhythm, normal heart sounds and intact distal pulses. Exam reveals no gallop and no friction rub. No murmur heard. Pulmonary/Chest: Effort normal and breath sounds normal. No respiratory distress. She has no wheezes. She has no rales. Abdominal: Soft. She exhibits no distension. There is abdominal tenderness (to deep palpation in LUQ, RUQ and epigastric areas.). There is no rebound and no guarding. Bowel Sounds normoactive Musculoskeletal: General: No edema. Neurological: She is alert and oriented to person, place, and time. Skin: Skin is warm and dry. No rash noted. She is not diaphoretic. No erythema. Psychiatric: She has a normal mood and affect. Her behavior is normal. Data: I have reviewed all new labs and studies resulted and pertinent ones are noted below BMP: Recent Labs 02/25/20 0635 02/26/20 0711 02/27/20 0842 NA 140 142 136 K 3.5 3.3* 3.8 CL 105 106 102 CO2 25 27 27 ANIONGAP 10 9 7* CA 8.4* 8.6 8.2* GLUCOSE 126* 178* 240* BUN 6 4* 6 CREAT 0.53 0.52 0.50* Imaging CT Abd 02/25 (per Radiology) Impression: Trace right pleural effusion and bibasilar atelectasis. Residual peripancreatic infiltrative change, improved from prior examination. Hypodense pancreatic tail lesion again noted, likely pseudocyst in the setting of pancreatitis. Ceasar Marquisneelam 02/27/2020 10:47 AM I discussed the assessment of plan for the above patient with Dr. Thomas, Karen Oconnor MD This note may have been transcribed using [employer] speaking computerized voice recognition without a human western felt hat blocker. This report may or may not have been adjusted for typographical, grammatical and syntax errors. This patient is covered by internal medicine residents To reach Internal Medicine covered patients: Saturday-Saturday 7 AM- 7 PM: Please contact the resident via secure chat. The resident responsible for the patient will be on the Treatment Team listed as Resident If no response you may call the refrigeration specialist editing intern at zone phone [phone]. If no response you may call the refrigeration specialist senior resident at zone phone [phone] If no response please contact the attending of record via secure chat. 7 PM to 7 AM: The long call/night float resident should be listed as Resident on the treatment team and can be reached via secure chat. If no response you may call the refrigeration specialist editing intern at zone phone [phone]. If no response you may call the refrigeration specialist senior resident at zone phone [phone] If no response please contact the Rapid [...] secure chat. If no response call the refrigeration specialist editing intern at zone phone [phone]. If no response you may call the refrigeration specialist senior resident at zone phone [phone] If no response please contact the [facility] Hospitalist via secure chat Associated attestation - Karen Thomas MD - 02/27/2020 12:59 PM CDT [facility] Adult Hospitalist Attending Note The patient was seen by myself and the medical student. I have reviewed the medical record including the medical student's note (MS3) (available as hyperlink below) on 02/27/2020 and the student's documentation reflects my exam findings and assessment and plan. I reviewed and confirmed the history, personally performed the santos physical findings, reviewed and discussed pertinent laboratory findings and discussed in person the assessment and plan (medical decision making activity) with the medical student on rounds. I also performed the critical or santos portion(s) of the service as documented below, and was directly involved in the management of the patient and supervised the care provided. The student's documentation has been reviewed with changes/additions made as appropriate. Abdominal pain improved with bentyl. Tolerating tubefeeds. Would like to try eating. I have reviewed the physical exam findings in the medical student???s note; my notable physical exam findings include: Abd Soft, mild tenderness over epigastrium, bowel sounds present I have reviewed the labs that were obtained over the last 24 hours. Notable amendments to the assessment and plan include: Acute on chronic pancreatitis - CT without significant changes from prior, demonstrating improvement. Wean dilaudid today to 0.3 q4h prn, patient to try to decrease further if able. Will monitor response to weaning IV opiates prior to advancing diet. Continue bentyl per GI recommendations, appreciate assistance Moderate PCMN - tube feeds, CLD See medical student note for additional details. Nutrition: Current Diet and/or Nutritional Supplementation ordered: DIET CLEAR LIQUID Diabetic: Diabetic, DIET TUBE FEEDING High Protein,; Elemental 1.0, Nutrition Diagnosis: Moderate protein-calorie malnutrition (02/22/20899) Subcutaneous Fat Loss Assessment: Mild fat loss (02/22/20899) Muscle Wasting Assessment: Mild (02/22/20899) Percentage of Energy: < 50% for > or equal to 5 days (severe-acute) (02/22/20899) Percentage of Weight Loss: Unable to assess(adm wt was stated) (02/22/20899) Labs: Evaluate Triglycerides;Evaluate CMP/BMP daily until stable (02/22/20899) PPN/TPN: TPN/PPN recommended (02/22/20899) Approximately 25 minutes was spent in the care of this patient today; more than 50% was spent in counseling and coordination of care (patient/family conference, nursing conference and/or discussion with consultants). Karen Thomas MD 02/27/2020 12:57 PM [facility] Hospitalist This patient is covered by internal medicine residents To reach Internal Medicine covered patients: Saturday-Saturday 7 AM- 7 PM: Please contact the resident via secure chat. The resident responsible for the patient will be on the Treatment Team listed as Resident If no response you may call the refrigeration specialist editing intern at zone phone [phone]. If no response you may call the refrigeration specialist senior resident at zone phone [phone] If no response please contact the attending of record via secure chat. 7 PM to 7 AM: The long call/night float resident should be listed as Resident on the treatment team and can be reached via secure chat. If no response you may call the refrigeration specialist editing intern at zone phone [phone]. If no response you may call the refrigeration specialist senior resident at zone phone [phone] If no response please contact the [facility] Hospitalist via secure chat Saturday and Saturday: 7 AM-12 PM: Please contact the resident via secure chat. The resident responsible for the patient will be on the Treatment Team listed as Resident 12 PM-7 AM: The long call/night float resident should be listed as Resident on the treatment teamand can be reached via secure chat. If no response call the refrigeration specialist editing intern at zone phone [phone]. If no response you may call the refrigeration specialist senior resident at [facility] phone [phone] If no response please contact the [facility] Hospitalist via secure chat * Blake Rudd MD - 02/27/2020 10:05 AM CDT TFs started. Will add lantus to current regimen. Call with questions. [phone] * Cooper Kahn MD - 02/26/2020 8:09 PM CDT [facility] Internal Medicine Resident Cross Cover Call Two patient identifier: Casandra Doss 1975 Called for: Insulin orders Last Recorded Vitals: BP 114/65 (BP Location: Left arm, Patient Position (BP): Supine) Pulse 72 Temp 98.3 ??F (36.8 ??C) (Oral) Resp 16 Ht 5' 5 (1.651 m) Wt 81.8 kg (180 lb 6.4 oz) SpO2 100% No BMI 30.02 kg/m?? 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 Clear liquids today. NJ in, trickle tube feeds Edited by: Kortney Ray DO at 02/25/2020 1700 NTD Edited by: Kortney Ray DO at 02/25/2020 1700 Documentation/Intervention/Outcome: Chart reviewed. Called and notified that the patient is tolerating a diet and tube feeds. Will adjust insulin regimen and accuchecks to QACHS at the same dose. 2137: Chart reviewed. Patient is still receiving tube feedings at this time, requiring that she remain on q4h accuchecks. Orders adjusted. Please call back any time if I can be of more assistance via Secure Chat (I am listed on the treatment team) Cooper Kahn MD * Vianey Desai, RD - 02/26/2020 3:11 PM CDT Images from the original note were not included. CLINICAL DIETITIAN PROGRESS NOTE [facility] Follow Up re: nutrition support A: Visited pt in room this morning. TF infusing Vital AF 1.2 @ 30ml/hr. Recs were for Vital HP (lower fat.) Direct messaged MD, changed TF order, and notified nurse to change TF formula. Pt reports tolerating clear liquid diet with mild-mod abdominal pain. Hypokalemia and hypomagnesemia following TF initiation-- suspect d/t refeeding. K+ and Mg are beingreplaced. Anthropometrics: Height: 5' 5 (165.1 cm) (02/15/20 1656) Weight: 81.8 kg (180 lb 6.4 oz) (02/24/20 0421) Body mass index is 30.02 kg/m??. Last Bowel Movement (mm/dd/yyyy): 02/26/20 (02/26/20 1035) Allergies Green pepper, Adhesive, Aspartame, and Adhesive tape-silicones Skin: Color/Characteristics: normal (02/26/20 0944) See Flowsheet for more wound documentation Chin Score: 20 (02/26/20 0944) Pert meds: protonix, humalog Lab Results Component Value Date/Time NA 142 02/26/2020 07:11 AM K 3.3 (L) 02/26/2020 07:11 AM CL 106 02/26/2020 07:11 AM BUN 4 (L) 02/26/2020 07:11 AM CREAT 0.52 02/26/2020 07:11 AM CO2 27 02/26/2020 07:11 AM GLUCOSE 178 (H) 02/26/2020 07:11 AM CA 8.6 02/26/2020 07:11 AM ALBUMIN 3.6 02/16/2020 09:20 AM GFR >60 02/26/2020 07:11 AM MG 1.6 02/26/2020 07:11 AM PO4 2.8 02/26/2020 07:11 AM DIET CLEAR LIQUID Diabetic: Diabetic, DIET TUBE FEEDING High Protein,; Elemental 1.0, PO: clear liquids Nutrient needs: Kcal 4404-0747 (25-30kcal/kg IBW) Protein 68-74g (1.2-1.3g/kg IBW) D: Same/ moderate protein-calorie malnutrition I:Nutrition Intervention: 1) Vital HP @ 60ml/hr + H20 flush 20ml/hr to provide ~1440kcal, 126g protein, 161g CHO, 33g fat (lowest on formulary,) and 1440ml H20 daily. Start low, increase slowly. 2) Monitor electrolytes closely, pt at risk of refeeding. Replace as needed. 3) Thiamine 100mg daily x 5 days 4) Encourage PO intake as able Goals: Tolerate TF at goal rate Transition to PO diet as able M/E: 1. Continue to monitor nutrition, weight, lab values, and skin. 2. Follow up every 1-4 days and as needed. Vianey Desai RD, LD, CNSC Available via [address] office: [phone] * Ceasar Burnett (Student) - 02/26/2020 11:46 AM CDT [facility] Resident Progress Note Patient Name: Casandra Doss Attending Physician: Karen Thomas MD Primary Care Provider: Guerrero Middleton PA-C Date of Admission: 02/15/2020 Date of Service: 02/26/2020 Length of Stay: LOS: 11 days Previous history of present illness and review of systems have been reviewed today as documented inthe H&P on 02/15/2020; medications, labs, studies, notes, orders and consults have been reviewed. I have reviewed the notes from admission. 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 Low potassium, low-normal mag (02/25) Plan: - Pain regimen: oxycodone 10 mg Q6H, dilaudid 0.6 mg IV Q3H prn, acetaminophen 1 g Q8H, Gabapentin 200 mg Q8H - Senna S BID, Dulcolax QD prn - IVF NS @ 75mL/hr - NJ tube inserted; tube feedings at 20mL/hr, increase by 10 per hour up to 60mL/hr - Thiamine supplements, replete potassium, magnesium - GI consult for possible more permanent tube solution #Chylomicronemia - Undergoes monthly apheresis with port access on right and left chest - TG 300, post-apheresis Plan: - Continue home fenofibrate 160 mg PO QD - Continue home rosuvastatin 20 mg PO QD #Hypodensity in distal Pancreas - Concern for pseudocyst vs infectious etiology (less likely due to down trending WBC) Plan: - Pt will need to f/u with GI as outpatient #Insulin Dependent Type 2 Diabetes Mellitus - INFORMATION ASSURANCE MANAGER regimen: lantus 35 U in AM, aspart 25 U TID with meals, metformin 1 g BID with meals, empagliflozin 25 mg QD in AM, A1c 8.6 - Began tube feedings Plan: - Endo recs on insulin regimen. Continue low dose Humalog SSI - Goal BS 140-180 #Hypothyroidism - TSH 20.5 (02/15) - Free T4 0.32 (02/15) Plan: - Endocrine consulted: recommend 200 mcg levothyroxine qd, repeat TSH in 4-6 weeks #Protein Calorie Malnutrition-Moderate - 2/2 acute pancreatitis - Increasing tube feedings today, watching for Refeeding syndrome Chronic/Stable/Resolved Problems: #GERD - Continue home pantoprazole 40mg #Depression - Continue home Celexa 40 mg #Leukocytosis (resolved) - WBC 6.4 (02/17) - Likely 2/2 acute pancreatitis Plan: - Continue to trend - Will continue to monitor fever curve; concern for possible infected pseudocyst vs pancreatic necrosis #Mild Hyponatremia (resolved) Plan: - Continue to monitor on BMP #Hypocalcemia (resolved) Plan: - Continue to monitor BMP Nutrition: Current Diet and/or Nutritional Supplementation ordered: DIET CLEAR LIQUID Diabetic: Diabetic, DIET TUBE FEEDING High Protein,; Elemental 1.0, Nutrition Diagnosis: Moderate protein-calorie malnutrition (02/22/20899) Subcutaneous Fat Loss Assessment: Mild fat loss (02/22/20899) Muscle Wasting Assessment: Mild (02/22/20899) Percentage of Energy: < 50% for > or equal to 5 days (severe-acute) (02/22/20899) Percentage of Weight Loss: Unable to assess(adm wt was stated) (02/22/20 0900) Labs: Evaluate Triglycerides;Evaluate CMP/BMP daily until stable (02/22/20 09) PPN/TPN: TPN/PPN recommended (02/22/20 09) Quality/Safety/Core Measures/Disposition Planning: DVT PRX:Enoxaparin Indwelling Lines/Devices: [place]: absent; reason: N/A Patient's activity prior to admission: independent Patient lives with their family in a single family home PT and OT: Yes PT POC OT POC Code Status: Full Code Current Planned Disposition - Home which I anticipate will be completed 2-3 days Subjective/Events Overnight: Ms. Doss has been receiving dilaudid, roxicodone, gabapentin, and tylenol for pain associated with acute pancreatitis. She states her baseline pain is 4/10. Pain will increase to 6/10 and states it is made worse by drinking liquids. She had BS in the 180s overnight, rate of D5NS was reduced. Pt began feeding overnight with no concerns. No acute events occurred overnight. Objective BP 109/66 (BP Location: Left arm, Patient Position (BP): Supine) Pulse 67 Temp 98.6 ??F (37 ??C) (Oral) Resp 16 Ht 5' 5 (1.651 m) Wt 81.8 kg (180 lb 6.4 oz) SpO2 95% No BMI 30.02 kg/m?? Temp (24hrs), Av.5 ??F (36.9 ??C), Min:98.4 ??F (36.9 ??C), Max:98.6 ??F (37 ??C) Moderate amount stool (02/26/20 1035) Exam: Physical Exam Constitutional: She is oriented to person, place, and time. She appears well-developed. HENT: Head: Normocephalic and atraumatic. Eyes: Conjunctivae and EOM are normal. No scleral icterus. Neck: Normal range of motion. Neck supple. No JVD present. Cardiovascular: Normal rate, regular rhythm, normal heart sounds and intact distal pulses. Exam reveals no gallop and no friction rub. No murmur heard. Pulmonary/Chest: Effort normal and breath sounds normal. No respiratory distress. She has no wheezes. She has no rales. Abdominal: Soft. She exhibits no distension. There is abdominal tenderness (to deep palpation in LUQ, RUQ and epigastric areas. Pt reports 7/10 pain on touch). There is no rebound and no guarding. Bowel Sounds normoactive Musculoskeletal: General: No edema. Neurological: She is alert and oriented to person, place, and time. Skin: Skin is warm and dry. No rash noted. She is not diaphoretic. No erythema. Psychiatric: She has a normal mood and affect. Her behavior is normal. Data: I have reviewed all new labs and studies resulted and pertinent ones are noted below BMP: Recent Labs 02/24/20 0758 02/25/20 0635 02/26/20 0711 NA 138 140 142 K 3.6 3.5 3.3* CL 104 105 106 CO2 27 25 27 ANIONGAP 7* 10 9 CA 8.9 8.4* 8.6 GLUCOSE 143* 126* 178* BUN 10 6 4* CREAT 0.62 0.53 0.52 Ceasar Choneelam 02/26/2020 11:46 AM I discussed the assessment of plan for the above patient with Dr. Thomas, Karen Oconnor MD This note may have been transcribed using [employer] speaking computerized voice recognition without a human western felt hat blocker. This report may or may not have been adjusted for typographical, grammatical and syntax errors. This patient is covered by internal medicine residents To reach Internal Medicine covered patients: Saturday-Saturday 7 AM- 7 PM: Please contact the resident via secure chat. The resident responsible for the patient will be on the Treatment Team listed as Resident If no response you may call the refrigeration specialist editing intern at zone phone [phone]. If no response you may call the refrigeration specialist senior resident at zone phone [phone] If no response please contact the attending of record via secure chat. 7 PM to 7 AM: The long call/night float resident should be listed as Resident on the treatment team and can be reached via secure chat. If no response you may call the refrigeration specialist editing intern at zone phone [phone]. If no response you may call the refrigeration specialist senior resident at zone phone [phone] If no response please contact the Rapid [...] secure chat. If no response call the refrigeration specialist editing intern at zone phone [phone]. If no response you may call the refrigeration specialist senior resident at zone phone [phone] If no response please contact the [facility] Hospitalist via secure chat Associated attestation - Karen Thomas MD - 02/26/2020 9:09 PM CDT [facility] Adult Hospitalist Attending Note The patient was seen by myself and the medical student. I have reviewed the medical record including the medical student's note (MS3) (available as hyperlink below) on 02/26/2020 and the student's documentation reflects my exam findings and assessment and plan. I reviewed and confirmed the history, personally performed the santos physical findings, reviewed and discussed pertinent laboratory findings and discussed in person the assessment and plan (medical decision making activity) with the medical student on rounds. I also performed the critical or santos portion(s) of the service as documented below, and was directly involved in the management of the patient and supervised the care provided. The student's documentation has been reviewed with changes/additions made as appropriate. Pain persists, tolerating tube feeds I have reviewed the physical exam findings in the medical student???s note; my notable physical exam findings include: Abd Soft, tender to palpation over upper portion of abdomen Bowel sounds present I have reviewed the labs that were obtained over the last 24 hours. Notable amendments to the assessment and plan include: Acute on chronic pancreatitis - Continue tubefeeding. Discussed case with GI - JOHNATHAN Mullins and Dr. Grijalva, who will consult today. Plan for repeat CT A/P, appreciate GI assistance See medical student note for additional details. Nutrition: Current Diet and/or Nutritional Supplementation ordered: DIET CLEAR LIQUID Diabetic: Diabetic, DIET TUBE FEEDING High Protein,; Elemental 1.0, Nutrition Diagnosis: Moderate protein-calorie malnutrition (02/22/20899) Subcutaneous Fat Loss Assessment: Mild fat loss (02/22/20899) Muscle Wasting Assessment: Mild (02/22/20899) Percentage of Energy: < 50% for > or equal to 5 days (severe-acute) (02/22/20899) Percentage of Weight Loss: Unable to assess(adm wt was stated) (02/22/20899) Labs: Evaluate Triglycerides;Evaluate CMP/BMP daily until stable (02/22/20899) PPN/TPN: TPN/PPN recommended (02/22/20899) Approximately 25 minutes was spent in the care of this patient today; more than 50% was spent in counseling and coordination of care (patient/family conference, nursing conference and/or discussion with consultants). Karen Thomas MD 02/26/2020 9:08 PM [facility] Hospitalist This patient is covered by internal medicine residents To reach Internal Medicine covered patients: Saturday-Saturday 7 AM- 7 PM: Please contact the resident via secure chat. The resident responsible for the patient will be on the Treatment Team listed as Resident If no response you may call the refrigeration specialist editing intern at zone phone [phone]. If no response you may call the refrigeration specialist senior resident at zone phone [phone] If no response please contact the attending of record via secure chat. 7 PM to 7 AM: The long call/night float resident should be listed as Resident on the treatment team and can be reached via secure chat. If no response you may call the refrigeration specialist editing intern at zone phone [phone]. If no response you may call the refrigeration specialist senior resident at zone phone [phone] If no response please contact the Rapid [...] secure chat. If no response call the refrigeration specialist editing intern at zone phone [phone]. If no response you may call the refrigeration specialist senior resident at zone phone [phone] If no response please contact the [facility] Hospitalist via secure chat * Nery Viramontes NP - 02/26/2020 8:54 AM CDT Name: Casandra Doss : 1975 Date: 02/26/2020 Room/Bed: 6353/1 Hospital Day: LOS: 11 days SUBJECTIVE: No acute events overnight Continued abdominal pain, but improved versus yesterday Tolerated axelo, eloisa ice, broth yesterday with mild abdominal discomfort Blood sugars and insulin regimen reviewed REVIEW OF SYSTEMS: Constitutional: denies fevers, chills, sweats, fatigue, malaise, anorexia, weight loss Respiratory: denies cough, dyspnea, hemoptysis, stridor, wheeze, chest pain Cardiovascular: denies chest pain or discomfort, exertional chest pressure/discomfort, fatigue, pounding heart/chest, nausea, syncope, shortness of breath Gastrointestinal: abdominal pain Neurological: denies blurry or disturbed vision, gait problems, dizziness, difficulty swallowing, muscle weakness, difficulty saying words Behavior, Psychologic: denies aggressive or problematic behavior, anxiety, mood issues, substance use, learning difficulty, unusual fears Endocrine: denies sudden changes in mood, temperature intolerance, polyuria, polydipsia, skin changes Allergies Allergen Reactions ??? Green Pepper Hives ??? Adhesive Unknown ??? Aspartame Headache All artificial sweeteners. ??? Adhesive Tape-Silicones Hives Exam: Vitals: 02/24/20 0421 02/24/20 2133 02/25/20 0405 02/25/205 BP: 104/64 116/72 105/64 114/69 BP Location: Left arm Left arm Left arm Left arm Patient Position (BP): Supine Supine Supine Pulse: 71 76 71 77 Resp: 18 18 16 Temp: 97.8 ??F (36.6 ??C) 99.3 ??F (37.4 ??C) 98.3 ??F (36.8 ??C) 98.4 ??F (36.9 ??C) TempSrc: Oral Oral Oral Oral SpO2: 96% 96% 98% Weight: 81.8 kg (180 lb 6.4 oz) Height: EXAM Gen: alert and oriented Cardiac: rrr RESP: ctab ABD: hypoactive Lab Results Component Value Date/Time NA 142 02/26/2020 07:11 AM K 3.3 (L) 02/26/2020 07:11 AM CL 106 02/26/2020 07:11 AM CO2 27 02/26/2020 07:11 AM CA 8.6 02/26/2020 07:11 AM BUN 4 (L) 02/26/2020 07:11 AM CREAT 0.52 02/26/2020 07:11 AM GLUCOSE 178 (H) 02/26/2020 07:11 AM TOTALPROTEIN 6.3 (L) 02/16/2020 09:20 AM ALBUMIN 3.6 02/16/2020 09:20 AM BILITOTAL <0.2 (L) 02/16/2020 09:20 AM ALKPHOS 81 02/16/2020 09:20 AM AST 02/16/2020 09:20 AM Comment: Unable to result due to lipemia. Unable to evaluate due to lipemia. ALT 02/16/2020 09:20 AM Comment: Unable to result due to lipemia. Unable to evaluate due to lipemia. ANIONGAP 9 02/26/2020 07:11 AM Lab Results Component Value Date/Time CHOLTOT 162 02/01/2019 10:15 PM HDL 30 (L) 02/01/2019 10:15 PM LDLCALC 02/01/2019 10:15 PM Comment: Calculated LDL is not accurate when the Triglyceride value exceeds 400. LDLDIRECT 110 08/10/2011 07:21 AM TRIGLYCERIDE 300 (H) 02/25/2020 06:35 AM ASSESSMENT AND PLAN: Type 2 diabetes mellitus. Patient tolerating clears OK + trickle tube feeds. Dextrose containing intravenous fluids reduced, blood sugars stable. Continue POC BS Q4 + Q4 ssi Humalog. Monitor as TF are advanced. Patient reports in 2017 she was sent home from [facility] with a cor-marcellus and tube feeds; she did this for about 1 week, until she could tolerate nutrition. Recommend GI consult for further assessment and recommendations Hypertriglyceredemia. Plasma pheresis T// last week; Continue Statin and Fenofibrate. Acute on chronic pancreatitis. Pain control per primary team Hypothyroidism. Levothyroxine 200 mcg daily; follow up in 6 weeks outpt Recommendations were discussed with Dr. Rudd, patient, hospitalist, and nursing staff. Please page with questions. STELLA Bright CDE 7A - 7P [phone] cell # 7P - 7A [phone] pager Associated attestation - Blake Rudd MD - 02/26/2020 9:26 AM CDT Discussed with RICE MILLING SUPERVISOR. Agree with documentation. * Cooper Kahn MD - 02/25/2020 11:38 PM CDT [facility] Internal Medicine Resident Cross Cover Call Two patient identifier: Casandra Doss 1975 Called for: Hyperglycemia. Last Recorded Vitals: BP 114/69 (BP Location: Left arm) Pulse 77 Temp 98.4 ??F (36.9 ??C) (Oral) Resp 16 Ht 5' 5 (1.651 m) Wt 81.8 kg (180 lb 6.4 oz) SpO2 98% No BMI 30.02 kg/m?? 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 Clear liquids today. NJ in, trickle tube feeds Edited by: Kortney Ray DO at 02/25/2020 1700 NTD Edited by: Kortney Ray DO at 02/25/2020 1700 Documentation/Intervention/Outcome: Chart reviewed. Called because the patient is on D5NS and tube feeds and her blood glucose levels have been rising. Per chart review, BG 176 this evening, stable from 180 earlier in the day. Will decrease rate of D5NS and monitor repeat blood glucose. Please call back any time if I can be of more assistance via Secure Chat (I am listed on the treatment team) Cooper Kahn MD * Vianey Desai, ARMAND - 02/25/2020 4:25 PM CDT Images from the original note were not included. CLINICAL DIETITIAN PROGRESS NOTE [facility] Follow Up re: nutrition support A: Pt w/ familial hyperchylomicronemia and recurrent pancreatitis, requiring monthly apheresis treatments for high TG. Pt had NJ tube placed yesterday. Visited pt this morning, tube feeds were about to start. Pt continues with sips of clear liquids. TG 300. Anthropometrics: Height: 5' 5 (165.1 cm) (02/15/20 1656) Weight: 81.8 kg (180 lb 6.4 oz) (02/24/20 0421) Body massindex is 30.02 kg/m??. Last Bowel Movement (mm/dd/yyyy): 02/24/20 (02/25/20 0802) Allergies Green pepper, Adhesive, Aspartame, and Adhesive tape-silicones Skin: See Flowsheet for more wound documentation Chin Score: 20 (02/25/20 0802) Pert meds: protonix, humalog Lab Results Component Value Date/Time NA 140 02/25/2020 06:35 AM K 3.5 02/25/2020 06:35 AM CL 105 02/25/2020 06:35 AM BUN 6 02/25/2020 06:35 AM CREAT 0.53 02/25/2020 06:35 AM CO2 25 02/25/2020 06:35 AM GLUCOSE 126 (H) 02/25/2020 06:35 AM CA 8.4 (L) 02/25/2020 06:35 AM ALBUMIN 3.6 02/16/2020 09:20 AM GFR >60 02/25/2020 06:35 AM MG 1.7 02/25/2020 06:35 AM PO4 3.1 02/25/2020 06:35 AM DIET CLEAR LIQUID Diabetic: Diabetic, DIET TUBE FEEDING High Protein,; Elemental 1.2, PO: currently NPO; was on clear liquids Nutrient needs: Kcal 7040-2564 (25-30kcal/kg IBW) Protein 68-74g (1.2-1.3g/kg IBW) D: Same/ moderate protein-calorie malnutrition I:Nutrition Intervention: 1) Vital HP @ 60ml/hr + H20 flush 20ml/hr to provide ~1440kcal, 126g protein, 161g CHO, 33g fat (lowest on formulary,) and 1440ml H20 daily. Start low, increase slowly. 2) Monitor electrolytes closely, pt at risk of refeeding. Replace as needed. 3) Thiamine 100mg daily x 5 days 4) Encourage PO intake as able Goals: Tolerate TF at goal rate Transition to PO diet as able M/E: 1. Continue to monitor nutrition, weight, lab values, and skin. 2. Follow up every 1-4 days and as needed. Vianey Desai RD, LD, CNSC Available via [employer] [address] office: [phone] * Ceasar Burnett (Student) - 02/25/2020 11:39 AM CDT [facility] Resident Progress Note Patient Name: Casandra Doss Attending Physician: Karen Thomas MD Primary Care Provider: Guerrero Middleton PA-C Date of Admission: 02/15/2020 Date of Service: 02/25/2020 Length of Stay: LOS: 10 days Previous history of present illness and review of systems have been reviewed today as documented inthe H&P on 02/15/2020; medications, labs, studies, notes, orders and consults have been reviewed. I have reviewed the notes from admission. 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 - Pt c/o acute abdominal pain in LUQ and epigastric areas with radiation to back - T, down from high of 4,425 - Lipase: 68 on admission - CT abdomen shows nonspecific 9 mm hypodense lesion in distal aspect of pancreas - Pt reports baseline pain 4, but increase to 7 after drinking Plan: - See diabetes plan below for insulin regimen - Pain regimen: oxycodone 10 mg PO Q6H, dilaudid 0.6 mg IV Q3H prn, acetaminophen 1 g Q8H, increaseGabapentin 200 mg Q8H - Senna S BID, Dulcolax QD prn - Nutrition recommendations: Daily BMP, MG, Phos - Endo Recommendations: Recommend Tube feed over TPN due to hypercholesterolemia - Given IVF Dextrose 5-NS @ 100mL/hr - NJ tube inserted and placed at duodenal-jejunal junction - Thiamine, potassium supplements administered prior to beginning tube feeding - Begin tube feedings at 20mL/hr. Consider increasing rate incrementally up to 60mL/hr, per Nutrition recs #Chylomicronemia - Undergoes monthly apheresis with port access on right and left chest - TG 300, post-apheresis Plan: - See below for insulin regimen - Stop apheresis - Continue home fenofibrate 160 mg PO QD - Continue home rosuvastatin 20 mg PO QD #Hypodensity in distal Pancreas - Concern for pseudocyst vs infectious etiology (less likely due to down trending WBC) Plan: - Pt will need to f/u with GI as outpatient #Insulin Dependent Type 2 Diabetes Mellitus - INFORMATION ASSURANCE MANAGER regimen: lantus 35 U in AM, aspart 25 U TID with meals, metformin 1 g BID with meals, empagliflozin 25 mg QD in AM, A1c 8.6 - Clear Liquid Diet Plan: - Continue low dose Humalog SSI until definitive intake source - Goal BS 140-180 #Hypothyroidism - TSH 20.5 (02/15) - Free T4 0.32 (02/15) Plan: - Endocrine consulted: recommend 200 mcg levothyroxine qd, repeat TSH in 4-6 weeks Chronic/Stable/Resolved Problems: #GERD - Continue home pantoprazole 40mg #Depression - Continue home Celexa 40 mg #Leukocytosis (resolved) - WBC 6.4 (02/17) - Likely 2/2 acute pancreatitis Plan: - Continue to trend - Will continue to monitor fever curve; concern for possible infected pseudocyst vs pancreatic necrosis #Mild Hyponatremia (resolved) Plan: - Continue to monitor on BMP #Hypocalcemia (resolved) Plan: - Continue to monitor BMP Nutrition: Current Diet and/or Nutritional Supplementation ordered: DIET CLEAR LIQUID Diabetic: Diabetic, DIET TUBE FEEDING High Protein,; Elemental 1.2, Nutrition Diagnosis: Moderate protein-calorie malnutrition (02/22/20899) Subcutaneous Fat Loss Assessment: Mild fat loss (02/22/20899) Muscle Wasting Assessment: Mild (02/22/20899) Percentage of Energy: < 50% for > or equal to 5 days (severe-acute) (02/22/20899) Percentage of Weight Loss: Unable to assess(adm wt was stated) (02/22/20899) Labs: Evaluate Triglycerides;Evaluate CMP/BMP daily until stable (02/22/20899) PPN/TPN: TPN/PPN recommended (02/22/20899) Quality/Safety/Core Measures/Disposition Planning: DVT PRX:Enoxaparin Indwelling Lines/Devices: [place]: absent; reason: N/A Patient's activity prior to admission: independent Patient lives with their family in a single family home PT and OT: Yes PT POC OT POC Code Status: Full Code Current Planned Disposition - Home which I anticipate will be completed 2-3 days Subjective/Events Overnight: Ms. Doss has been receiving dilaudid, roxicodone, gabapentin, and tylenol for pain associated with acute pancreatitis. She states her baseline pain is 4/10. Pain will increase to 7/10 and states it is made worse by drinking liquids. Pt states that she ate mashed potatoes and gravy last night. No acute events occurred overnight. Objective BP 105/64 (BP Location: Left arm, Patient Position (BP): Supine) Pulse 71 Temp 98.3 ??F (36.8 ??C) (Oral) Resp 16 Ht 5' 5 (1.651 m) Wt 81.8 kg (180 lb 6.4 oz) SpO2 96% No BMI 30.02 kg/m?? Temp (24hrs), Av.8 ??F (37.1 ??C), Min:98.3 ??F (36.8 ??C), Max:99.3 ??F (37.4 ??C) Moderate amount stool (02/24/201811) Exam: Physical Exam Constitutional: She is oriented to person, place, and time. She appears well-developed. HENT: Head: Normocephalic and atraumatic. Eyes: Conjunctivae and EOM are normal. No scleral icterus. Neck: Normal range of motion. Neck supple. No JVD present. Cardiovascular: Normal rate, regular rhythm, normal heart sounds and intact distal pulses. Exam reveals no gallop and no friction rub. No murmur heard. Pulmonary/Chest: Effort normal and breath sounds normal. No respiratory distress. She has no wheezes. She has no rales. Abdominal: Soft. She exhibits no distension. There is abdominal tenderness (to deep palpation in LUQ, RUQ and epigastric areas. Pt reports 7/10 pain on touch). There is no rebound and no guarding. Bowel Sounds Hypoactive Musculoskeletal: General: No edema. Neurological: She is alert and oriented to person, place, and time. Skin: Skin is warm and dry. No rash noted. She is not diaphoretic. No erythema. Psychiatric: She has a normal mood and affect. Her behavior is normal. Data: I have reviewed all new labs and studies resulted and pertinent ones are noted below BMP: Recent Labs 02/23/20 0645 02/24/20 0758 02/25/20 0635 NA 140 138 140 K 3.4* 3.6 3.5 CL 103 104 105 CO2 26 27 25 ANIONGAP 11 7* 10 CA 8.5* 8.9 8.4* GLUCOSE 116* 143* 126* BUN 6 10 6 CREAT 0.67 0.62 0.53 Ceasar Burnett 02/25/2020 11:39 AM I discussed the assessment of plan for the above patient with Karen Roman MD This note may have been transcribed using [employer] speaking computerized voice recognition without a human western felt hat blocker. This report may or may not have been adjusted for typographical, grammatical and syntax errors. This patient is covered by internal medicine residents To reach Internal Medicine covered patients: Saturday-Saturday 7 AM- 7 PM: Please contact the resident via secure chat. The resident responsible for the patient will be on the Treatment Team listed as Resident If no response you may call the refrigeration specialist editing intern at zone phone [phone]. If no response you may call the refrigeration specialist senior resident at zone phone [phone] If no response please contact the attending of record via secure chat. 7 PM to 7 AM: The long call/night float resident should be listed as Resident on the treatment team and can be reached via secure chat. If no response you may call the refrigeration specialist editing intern at zone phone [phone]. If no response you may call the refrigeration specialist senior resident at zone phone [phone] If no response please contact the Rapid [...] secure chat. If no response call the refrigeration specialist editing intern at zone phone [phone]. If no response you may call the refrigeration specialist senior resident at zone phone [phone] If no response please contact the Rapid [facility] Hospitalist via secure chat Associated attestation - Karen Thomas MD - 02/26/2020 9:07 PM CDT [facility] Adult Hospitalist Attending Note The patient was seen by myself and the medical student. I have reviewed the medical record including the medical student's note (MS3) (available as hyperlink below) on January and the student's documentation reflects my exam findings and assessment and plan. I reviewed and confirmed the history, personally performed the santos physical findings, reviewed and discussed pertinent laboratory findings and discussed in person the assessment and plan (medical decision making activity) with the medical student on rounds. I also performed the critical or santos portion(s) of the service as documented below, and was directly involved in the management of the patient and supervised the care provided. The student's documentation has been reviewed with changes/additions made as appropriate. Still having pain. Corpak to be repositioned. I have reviewed the physical exam findings in the medical student???s note; my notable physical exam findings include: Abd Soft, tender to palpation over abdomen I have reviewed the labs that were obtained over the last 24 hours. Notable amendments to the assessment and plan include: Acute on chronic pancreatitis - Continue tubefeeds and advance rate as tolerated, continue bowel rest otherwise, pain management. Appreciate endocrinology input See medical student note for additional details. Nutrition: Current Diet and/or Nutritional Supplementation ordered: DIET CLEAR LIQUID Diabetic: Diabetic, DIET TUBE FEEDING High Protein,; Elemental 1.0, Nutrition Diagnosis: Moderate protein-calorie malnutrition (02/22/20899) Subcutaneous Fat Loss Assessment: Mild fat loss (02/22/20899) Muscle Wasting Assessment: Mild (02/22/20899) Percentage of Energy: < 50% for > or equal to 5 days (severe-acute) (02/22/20899) Percentage of Weight Loss: Unable to assess(adm wt was stated) (02/22/20899) Labs: Evaluate Triglycerides;Evaluate CMP/BMP daily until stable (02/22/20899) PPN/TPN: TPN/PPN recommended (02/22/20899) Approximately 25 minutes was spent in the care of this patient today; more than 50% was spent in counseling and coordination of care (patient/family conference, nursing conference and/or discussion with consultants). Karen Thomas MD 02/26/2020 8:56 PM [facility] Hospitalist This patient is covered by internal medicine residents To reach Internal Medicine covered patients: Saturday-Saturday 7 AM- 7 PM: Please contact the resident via secure chat. The resident responsible for the patient will be on the Treatment Team listed as Resident If no response you may call the refrigeration specialist editing intern at zone phone [phone]. If no response you may call the refrigeration specialist senior resident at zone phone [phone] If no response please contact the attending of record via secure chat. 7 PM to 7 AM: The long call/night float resident should be listed as Resident on the treatment team and can be reached via secure chat. If no response you may call the refrigeration specialist editing intern at zone phone [phone]. If no response you may call the refrigeration specialist senior resident at zone phone [phone] If no response please contact the [facility] Hospitalist via secure chat Saturday and Saturday: 7 AM-12 PM: Please contact the resident via secure chat. The resident responsible for the patient will be on the Treatment Team listed as Resident 12 PM-7 AM: The long call/night float resident should be listed as Resident on the treatment teamand can be reached via secure chat. If no response call the refrigeration specialist editing intern at zone phone [phone]. If no response you may call the refrigeration specialist senior resident at zone phone [phone] If no response please contact the [facility] Hospitalist via secure chat * Nery Viramontes NP - 02/25/2020 10:44 AM CDT Name: Casandra Doss : 1975 Date: 02/25/2020 Room/Bed: 6353/1 Hospital Day: LOS: 10 days SUBJECTIVE: Sitting up in bed Rates abdominal pain 5/10 Tolerating clears OK Cor marcellus re-inserted this AM; needs imaging to confirm placement Anticipate trickle tube feeds being started today Blood sugars and insulin regimen reviewed with patient REVIEW OF SYSTEMS: Constitutional: denies fevers, chills, sweats, fatigue, malaise, anorexia, weight loss Respiratory: denies cough, dyspnea, hemoptysis, stridor, wheeze, chest pain Cardiovascular: denies chest pain or discomfort, exertional chest pressure/discomfort, fatigue, pounding heart/chest, nausea, syncope, shortness of breath Gastrointestinal: abdominal pain Neurological: denies blurry or disturbed vision, gait problems, dizziness, difficulty swallowing, muscle weakness, difficulty saying words Behavior, Psychologic: denies aggressive or problematic behavior, anxiety, mood issues, substance use, learning difficulty, unusual fears Endocrine: denies sudden changes in mood, temperature intolerance, polyuria, polydipsia, skin changes Allergies Allergen Reactions ??? Green Pepper Hives ??? Adhesive Unknown ??? Aspartame Headache All artificial sweeteners. ??? Adhesive Tape-Silicones Hives Exam: Vitals: 02/24/20 0000 02/24/20 0421 02/24/20 2133 02/25/20 0405 BP: 106/69 104/64 116/72 105/64 BP Location: Left arm Left arm Left arm Left arm Patient Position (BP): Sitting Supine Supine Supine Pulse: 67 71 76 71 Resp: 18 18 18 16 Temp: 98.1 ??F (36.7 ??C) 97.8 ??F (36.6 ??C) 99.3 ??F (37.4 ??C) 98.3 ??F (36.8 ??C) TempSrc: Oral Oral Oral Oral SpO2: 95% 96% 96% Weight: 81.8 kg (180 lb 6.4 oz) Height: EXAM Gen: alert and oriented Cardiac: rrr RESP: ctab ABD: hypoactive Lab Results Component Value Date/Time NA 140 02/25/2020 06:35 AM K 3.5 02/25/2020 06:35 AM CL 105 02/25/2020 06:35 AM CO2 25 02/25/2020 06:35 AM CA 8.4 (L) 02/25/2020 06:35 AM BUN 6 02/25/2020 06:35 AM CREAT 0.53 02/25/2020 06:35 AM GLUCOSE 126 (H) 02/25/2020 06:35 AM TOTALPROTEIN 6.3 (L) 02/16/2020 09:20 AM ALBUMIN 3.6 02/16/2020 09:20 AM BILITOTAL <0.2 (L) 02/16/2020 09:20 AM ALKPHOS 81 02/16/2020 09:20 AM AST 02/16/2020 09:20 AM Comment: Unable to result due to lipemia. Unable to evaluate due to lipemia. ALT 02/16/2020 09:20 AM Comment: Unable to result due to lipemia. Unable to evaluate due to lipemia. ANIONGAP 10 02/25/2020 06:35 AM Lab Results Component Value Date/Time CHOLTOT 162 02/01/2019 10:15 PM HDL 30 (L) 02/01/2019 10:15 PM LDLCALC 02/01/2019 10:15 PM Comment: Calculated LDL is not accurate when the Triglyceride value exceeds 400. LDLDIRECT 110 08/10/2011 07:21 AM TRIGLYCERIDE 300 (H) 02/25/2020 06:35 AM ASSESSMENT AND PLAN: Type 2 diabetes mellitus. Patient NPO. POC BS Q4 + ldssi Humalog. Anticipate TF being started today; will monitor/manage blood sugars with TF being started, and initiate basal insulin if needed. Hypertriglyceredemia. Plasma pheresis T/W/ last week; Continue Statin and Fenofibrate. NPO Acute on chronic pancreatitis. Pain control per primary team Hypothyroidism. Levothyroxine 200 mcg daily; follow up in 6 weeks outpt Recommendations were discussed with Dr. Rudd, patient, hospitalist, and nursing staff. Please page with questions. Lian Viramontes LINE HAUL DRIVER CDE 7A - 7P [phone] cell # 7P - 7A [phone] pager Associated attestation - Blake Rudd MD - 02/25/2020 12:03 PM CDT Discussed with RICE MILLING SUPERVISOR. Agree with documentation. * Marlen Murry RN - 02/25/2020 5:30 AM CDT Patient resting quietly in between care. C/o abdominal pain, PO Balwinder and IV Dilaudid given as per JUN. Up independently in room. VSS. Blood sugar checked q4 hours. * Cooper Kahn MD - 02/24/2020 8:58 PM CDT [facility] Resident Cross Cover Call Two patient identifier: Casandra Doss 1975 Called for: NGT removed, patient not tolerating oral solutions. Last Recorded Vitals: BP 104/64 (BP Location: Left arm, Patient Position (BP): Supine) Pulse 71 Temp 97.8 ??F (36.6 ??C) (Oral) Resp 18 Ht 5' 5 (1.651 m) Wt 81.8 kg (180 lb 6.4 oz) SpO2 96% No BMI 30.02 kg/m?? 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 Clear liquids today. NJ had to be pulled due to difficulties with guidewire Edited by: Kortney Ray DO at 02/24/2020 1742 Edited by: Kortney Ray DO at 02/23/2020 1821 Documentation/Intervention/Outcome: Chart reviewed. Called because the patient does not currently have an NGT in place and reports that oral solutions will make her vomit. Will switch Tylenol and Roxicodone back to pill formulations. Please call back any time if I can be of more assistance via Secure Chat (I am listed on the treatment team) Cooper Kahn MD * Ceasar Burnett (Student) - 02/24/2020 10:50 AM CDT [facility] Resident Progress Note Patient Name: Casandra Doss Attending Physician: Karen Thomas MD Primary Care Provider: Guerrero Middleton PA-C Date of Admission: 02/15/2020 Date of Service: 02/24/2020 Length of Stay: LOS: 9 days Previous history of present illness and review of systems have been reviewed today as documented inthe H&P on 02/15/2020; medications, labs, studies, notes, orders and consults have been reviewed. I have reviewed the notes from admission. 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 - Pt c/o acute abdominal pain in LUQ and epigastric areas with radiation to back - T, down from high of 4,425 - Lipase: 68 on admission - CT abdomen shows nonspecific 9 mm hypodense lesion in distal aspect of pancreas - Pt reports baseline pain 5, but increase to 7-8 after drinking Plan: - See diabetes plan below for insulin regimen - Stop Apheresis, TG < 500 - TG labs QD - Pain regimen: oxycodone 10 mg PO Q6H, dilaudid 0.5 mg IV Q4H prn, acetaminophen 1 g Q8H, Gabapentin 100 mg Q8H - Senna S BID, Dulcolax QD prn - Nutrition recommendations: Daily BMP, MG, Phos, TG - Endo Recommendations: Recommend Tube feed over TPN due to hypercholesterolemia - NJ tube inserted and placed at duodenal-jejunal junction - Thiamine, potassium supplements administered prior to beginning tube feeding - Begin tube feedings at 20mL/hr. Consider increasing rate incrementally up to 60mL/hr, per Nutrition recs #Chylomicronemia - Undergoes monthly apheresis with port access on right and left chest - TG 356, post-apheresis Plan: - See below for insulin regimen - Stop apheresis - Continue home fenofibrate 160 mg PO QD - Continue home rosuvastatin 20 mg PO QD #Hypodensity in distal Pancreas - Concern for pseudocyst vs infectious etiology (less likely due to down trending WBC) Plan: - Pt will need to f/u with GI as outpatient #Insulin Dependent Type 2 Diabetes Mellitus - INFORMATION ASSURANCE MANAGER regimen: lantus 35 U in AM, aspart 25 U TID with meals, metformin 1 g BID with meals, empagliflozin 25 mg QD in AM, A1c 8.6 - Pt NPO Plan: - Continue low dose Humalog SSI until definitive intake source - Goal BS 140-180 #Hypothyroidism - TSH 20.5 (02/15) - Free T4 0.32 (02/15) Plan: - Endocrine consulted: recommend 200 mcg levothyroxine qd, repeat TSH in 4-6 weeks Chronic/Stable/Resolved Problems: #GERD - Continue home pantoprazole 40mg #Depression - Continue home Celexa 40 mg #Leukocytosis (resolved) - WBC 6.4 (02/17) - Likely 2/2 acute pancreatitis Plan: - Continue to trend - Will continue to monitor fever curve; concern for possible infected pseudocyst vs pancreatic necrosis #Mild Hyponatremia (resolved) Plan: - Continue to monitor on BMP #Hypocalcemia (resolved) Plan: - Continue to monitor BMP Nutrition: Current Diet and/or Nutritional Supplementation ordered: DIET CLEAR LIQUID Diabetic: Diabetic, Nutrition Diagnosis: Moderate protein-calorie malnutrition (02/22/20899) Subcutaneous Fat Loss Assessment: Mild fat loss (02/22/20899) Muscle Wasting Assessment: Mild (02/22/20899) Percentage of Energy: < 50% for > or equal to 5 days (severe-acute) (02/22/20899) Percentage of Weight Loss: Unable to assess(adm wt was stated) (02/22/20899) Labs: Evaluate Triglycerides;Evaluate CMP/BMP daily until stable (02/22/20899) PPN/TPN: TPN/PPN recommended (02/22/20899) Quality/Safety/Core Measures/Disposition Planning: DVT PRX:Enoxaparin Indwelling Lines/Devices: [place]: absent; reason: N/A Patient's activity prior to admission: independent Patient lives with their family in a single family home PT and OT: Yes PT POC OT POC Code Status: Full Code Current Planned Disposition - Home which I anticipate will be completed 2-3 days Subjective/Events Overnight: Ms. Doss has been receiving dilaudid, roxicodone, and tylenol for pain associated with acute pancreatitis. She states her baseline pain is 5/10. Pain will increase to 8/10 and states it is made worse by drinking liquids.No acute events occurred overnight. Objective BP 104/64 (BP Location: Left arm, Patient Position (BP): Supine) Pulse 71 Temp 97.8 ??F (36.6 ??C) (Oral) Resp 18 Ht 5' 5 (1.651 m) Wt 81.8 kg (180 lb 6.4 oz) SpO2 96% No BMI 30.02 kg/m?? Temp (24hrs), Av.1 ??F (36.7 ??C), Min:97.8 ??F (36.6 ??C), Max:98.3 ??F (36.8 ??C) Exam: Physical Exam Constitutional: She is oriented to person, place, and time. She appears well-developed. HENT: Head: Normocephalic and atraumatic. Eyes: Conjunctivae and EOM are normal. No scleral icterus. Neck: Normal range of motion. Neck supple. No JVD present. Cardiovascular: Normal rate, regular rhythm, normal heart sounds and intact distal pulses. Exam reveals no gallop and no friction rub. No murmur heard. Pulmonary/Chest: Effort normal and breath sounds normal. No respiratory distress. She has no wheezes. She has no rales. Abdominal: Soft. She exhibits no distension. There is abdominal tenderness (to light touch in LUQ, RUQ and epigastric areas. Pt reports 7/10 pain on touch). There is no rebound and no guarding. Bowel Sounds Hypoactive Musculoskeletal: General: No edema. Neurological: She is alert and oriented to person, place, and time. Skin: Skin is warm and dry. No rash noted. She is not diaphoretic. No erythema. Psychiatric: She has a normal mood and affect. Her behavior is normal. Data: I have reviewed all new labs and studies resulted and pertinent ones are noted below BMP: Recent Labs 02/23/20 0645 02/24/20 0758 NA 140 138 K 3.4* 3.6 CL 103 104 CO2 26 27 ANIONGAP 11 7* CA 8.5* 8.9 GLUCOSE 116* 143* BUN 6 10 CREAT 0.67 0.62 Ceasar Burnett 02/24/2020 10:53 AM I discussed the assessment of plan for the above patient with Dr. Thomas, Karen Oconnor MD This note may have been transcribed using [employer] naturally speaking computerized voice recognition without a human western felt hat blocker. This report may or may not have been adjusted for typographical, grammatical and syntax errors. This patient is covered by internal medicine residents To reach Internal Medicine covered patients: Saturday-Saturday 7 AM- 7 PM: Please contact the resident via secure chat. The resident responsible for the patient will be on the Treatment Team listed as Resident If no response you may call the refrigeration specialist editing intern at zone phone [phone]. If no response you may call the refrigeration specialist senior resident at zone phone [phone] If no response please contact the attending of record via secure chat. 7 PM to 7 AM: The long call/night float resident should be listed as Resident on the treatment team and can be reached via secure chat. If no response you may call the refrigeration specialist editing intern at zone phone [phone]. If no response you may call the refrigeration specialist senior resident at zone phone [phone] If no response please contact the Rapid [...] secure chat. If no response call the refrigeration specialist editing intern at zone phone [phone]. If no response you may call the refrigeration specialist senior resident at zone phone [phone] If no response please contact the Rapid [facility] Hospitalist via secure chat Associated attestation - Karen Thomas MD - 02/24/2020 9:46 PM CDT [facility] Adult Hospitalist Attending Note The patient was seen by myself and the medical student. I have reviewed the medical record including the medical student's note (MS3) (available as hyperlink below) on 02/24/2020 and the student's documentation reflects my exam findings and assessment and plan. I reviewed and confirmed the history, personally performed the santos physical findings, reviewed and discussed pertinent laboratory findings and discussed in person the assessment and plan (medical decision making activity) with the medical student on rounds. I also performed the critical or santos portion(s) of the service as documented below, and was directly involved in the management of the patient and supervised the care provided. The student's documentation has been reviewed with changes/additions made as appropriate. Pain improved with increased frequency of dosing. Corpak placed I have reviewed the physical exam findings in the medical student???s note; my notable physical exam findings include: Cardiac Abd Regular Soft, nondistended, mild tenderness I have reviewed the labs that were obtained over the last 24 hours. Notable amendments to the assessment and plan include: Acute on chronic pancreatitis - Corpak placement for nutrition, keep NPO until then, pain management as ordered See medical student note for additional details. Nutrition: Current Diet and/or Nutritional Supplementation ordered: DIET CLEAR LIQUID Diabetic: Diabetic, DIET TUBE FEEDING High Protein,; Elemental 1.2, Nutrition Diagnosis: Moderate protein-calorie malnutrition (02/22/20899) Subcutaneous Fat Loss Assessment: Mild fat loss (02/22/20899) Muscle Wasting Assessment: Mild (02/22/20899) Percentage of Energy: < 50% for > or equal to 5 days (severe-acute) (02/22/20899) Percentage of Weight Loss: Unable to assess(adm wt was stated) (02/22/20899) Labs: Evaluate Triglycerides;Evaluate CMP/BMP daily until stable (02/22/20899) PPN/TPN: TPN/PPN recommended (02/22/20899) Approximately 25 minutes was spent in the care of this patient today; more than 50% was spent in counseling and coordination of care (patient/family conference, nursing conference and/or discussion with consultants). Karen Thomas MD 02/24/2020 9:40 PM [facility] Hospitalist This patient is covered by internal medicine residents To reach Internal Medicine covered patients: Saturday-Saturday 7 AM- 7 PM: Please contact the resident via secure chat. The resident responsible for the patient will be on the Treatment Team listed as Resident If no response you may call the refrigeration specialist editing intern at zone phone [phone]. If no response you may call the refrigeration specialist senior resident at zone phone [phone] If no response please contact the attending of record via secure chat. 7 PM to 7 AM: The long call/night float resident should be listed as Resident on the treatment team and can be reached via secure chat. If no response you may call the refrigeration specialist editing intern at zone phone [phone]. If no response you may call the refrigeration specialist senior resident at zone phone [phone] If no response please contact the Rapid [...] secure chat. If no response call the refrigeration specialist editing intern at zone phone [phone]. If no response you may call the refrigeration specialist senior resident at zone phone [phone] If no response please contact the Rapid [facility] Hospitalist via secure chat * Nery Viramontes, RICE MILLING SUPERVISOR - 02/23/2020 3:33 PM CDT Name: Casandra Doss : 1975 Date: 02/23/2020 Room/Bed: [facility] Hospital Day: LOS: 8 days SUBJECTIVE: Sitting up in bed Abdominal pain 09/[address] cor marcellus, TF initiation REVIEW OF SYSTEMS: Constitutional: denies fevers, chills, sweats, fatigue, malaise, anorexia, weight loss Respiratory: denies cough, dyspnea, hemoptysis, stridor, wheeze, chest pain Cardiovascular: denies chest pain or discomfort, exertional chest pressure/discomfort, fatigue, pounding heart/chest, nausea, syncope, shortness of breath Gastrointestinal: abdominal pain Genitourinary: denies dysuria, frequency, hematuria, hesitancy, nocturia, urinary incontinence Neurological: denies blurry or disturbed vision, gait problems, dizziness, difficulty swallowing, muscle weakness, difficulty saying words Endocrine: denies sudden changes in mood, temperature intolerance, polyuria, polydipsia, skin changes Allergies Allergen Reactions ??? Green Pepper Hives ??? Adhesive Unknown ??? Aspartame Headache All artificial sweeteners. ??? Adhesive Tape-Silicones Hives Exam: Vitals: 02/23/20 0410 02/23/20 0528 02/23/20 0928 02/23/20 1300 BP: (!) 94/58 104/60 107/59 106/68 BP Location: Right arm Right arm Right arm Left arm Patient Position (BP): Sitting Sitting Sitting Pulse: 63 Resp: Temp: 98.3 ??F (36.8 ??C) TempSrc: Oral SpO2: 96% Weight: Height: EXAM Gen: Awake and alert Cardiac: rrr RESP: ctab ABD: + bs Lab Results Component Value Date/Time NA 140 02/23/2020 06:45 AM K 3.4 (L) 02/23/2020 06:45 AM CL 103 02/23/2020 06:45 AM CO2 26 02/23/2020 06:45 AM CA 8.5 (L) 02/23/2020 06:45 AM BUN 6 02/23/2020 06:45 AM CREAT 0.67 02/23/2020 06:45 AM GLUCOSE 116 (H) 02/23/2020 06:45 AM TOTALPROTEIN 6.3 (L) 02/16/2020 09:20 AM ALBUMIN 3.6 02/16/2020 09:20 AM BILITOTAL <0.2 (L) 02/16/2020 09:20 AM ALKPHOS 81 02/16/2020 09:20 AM AST 02/16/2020 09:20 AM Comment: Unable to result due to lipemia. Unable to evaluate due to lipemia. ALT 02/16/2020 09:20 AM Comment: Unable to result due to lipemia. Unable to evaluate due to lipemia. ANIONGAP 11 02/23/2020 06:45 AM Lab Results Component Value Date/Time CHOLTOT 162 02/01/2019 10:15 PM HDL 30 (L) 02/01/2019 10:15 PM LDLCALC 02/01/2019 10:15 PM Comment: Calculated LDL is not accurate when the Triglyceride value exceeds 400. LDLDIRECT 110 08/10/2011 07:21 AM TRIGLYCERIDE 318 (H) 02/23/2020 06:45 AM ASSESSMENT AND PLAN: Type 2 diabetes mellitus. Patient NPO. POC BS Q4 + ldssi Humalog. Monitor blood sugars with TF being started. Hypertriglyceredemia. Plasma pheresis T// last week; Continue Statin and Fenofibrate. NPO Acute on chronic pancreatitis. Pain control per primary team Hypothyroidism. Levothyroxine 200 mcg daily; follow up in 6 weeks outpt Recommendations were discussed with Dr. Rudd, patient, hospitalist, and nursing staff. Please page with questions. STELLA Bright CDE 7A - 7P [phone] cell # 7P - 7A [phone] pager Associated attestation - Blake Rudd MD - 02/23/2020 4:37 PM CDT Discussed with RICE MILLING SUPERVISOR. Agree with documentation. * Ceasar Burnett (Student) - 02/23/2020 12:44 PM CDT [facility] Resident Progress Note Patient Name: Casandra Doss Attending Physician: Karen Thomas MD Primary Care Provider: Guerrero Middleton PA-C Date of Admission: 02/15/2020 Date of Service: 02/23/2020 Length of Stay: LOS: 8 days Previous history of present illness and review of systems have been reviewed today as documented inthe H&P on 02/15/2020; medications, labs, studies, notes, orders and consults have been reviewed. I have reviewed the notes from admission. 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 - Pt c/o acute abdominal pain in LUQ and epigastric areas with radiation to back - T, downtrending from high of 4,425 - Lipase: 68 on admission - CT abdomen shows nonspecific 9 mm hypodense lesion in distal aspect of pancreas - Pt reports baseline pain 4-5, increases to 7-8 after drinking, worse from day prior Plan: - See diabetes plan below for insulin regimen - Stop Apheresis, TG < 500 - TG labs QD - Pain regimen: oxycodone 10 mg PO Q6H, dilaudid 0.5 mg IV Q4H prn, acetaminophen 1 g Q8H - Senna S BID, Dulcolax QD prn - Nutrition recommendations: Daily BMP, MG, Phos, TG - Endo Recommendations: Recommend Tube feed over TPN due to hypercholesterolemia - NJ tube placement #Chylomicronemia - Undergoes monthly apheresis with port access on right and left chest - TG 318, post-apheresis, downtrending Plan: - See below for insulin regimen - Stop apheresis - Continue home fenofibrate 160 mg PO QD - Continue home rosuvastatin 20 mg PO QD #Hypodensity in distal Pancreas - Concern for pseudocyst vs infectious etiology (less likely due to down trending WBC) Plan: - Pt will need to f/u with GI as outpatient #Insulin Dependent Type 2 Diabetes Mellitus - INFORMATION ASSURANCE MANAGER regimen: lantus 35 U in AM, aspart 25 U TID with meals, metformin 1 g BID with meals, empagliflozin 25 mg QD in AM, A1c 8.6 - Pt NPO Plan: - Lantus 15 U QD, holding basal bolus due to reduced oral intake - Continue Humalog SSI - Goal BS 140-180 #Hypocalcemia - Ca 7.6 Plan: - Continue to trend Ca #Hypothyroidism - TSH 20.5 - Free T4 0.32 Plan: - Endocrine consulted: recommend 200 mcg levothyroxine qd, repeat TSH in 4-6 weeks Chronic/Stable/Resolved Problems: #GERD - Continue home pantoprazole 40mg #Depression - Continue home Celexa 40 mg #Leukocytosis (resolved) - WBC 6.4, downtrending - Likely 2/2 acute pancreatitis Plan: - Continue to trend - Will continue to monitor fever curve; concern for possible infected pseudocyst vs pancreatic necrosis #Mild Hyponatremia (resolved) Plan: - Continue to monitor on BMP Nutrition: Current Diet and/or Nutritional Supplementation ordered: DIET NPO Sips w/Meds, Nutrition Diagnosis: Moderate protein-calorie malnutrition (02/22/20899) Subcutaneous Fat Loss Assessment: Mild fat loss (02/22/20899) Muscle Wasting Assessment: Mild (02/22/20899) Percentage of Energy: < 50% for > or equal to 5 days (severe-acute) (02/22/20899) Percentage of Weight Loss: Unable to assess(adm wt was stated) (02/22/20899) Labs: Evaluate Triglycerides;Evaluate CMP/BMP daily until stable (02/22/20899) PPN/TPN: TPN/PPN recommended (02/22/20899) Quality/Safety/Core Measures/Disposition Planning: DVT PRX:Enoxaparin Indwelling Lines/Devices: [place]: absent; reason: N/A Patient's activity prior to admission: independent Patient lives with their family in a single family home PT and OT: Yes PT POC OT POC Code Status: Full Code Current Planned Disposition - Home which I anticipate will be completed 2-3 days Subjective/Events Overnight: Ms. Doss has been receiving dilaudid, roxicodone, and tylenol for pain associated with acute pancreatitis. She states her baseline pain is 6/10. She had BP in the 90s/40s overnight. Dilaudid was held following this event. No other acute events occurred overnight. Objective BP 107/59 (BP Location: Right arm, Patient Position (BP): Sitting) Pulse 66 Temp 98 ??F (36.7 ??C) (Oral) Resp 16 Ht 5' 5 (1.651 m) Wt 84.2 kg (185 lb 9.6 oz) SpO2 95% No BMI 30.89 kg/m?? Temp (24hrs), Av.3 ??F (36.8 ??C), Min:98 ??F (36.7 ??C), Max:98.5 ??F (36.9??C) Exam: Physical Exam Constitutional: She is oriented to person, place, and time. She appears well-developed. HENT: Head: Normocephalic and atraumatic. Eyes: Conjunctivae and EOM are normal. No scleral icterus. Neck: Normal range of motion. Neck supple. No JVD present. Cardiovascular: Normal rate, regular rhythm, normal heart sounds and intact distal pulses. Exam reveals no gallop and no friction rub. No murmur heard. Pulmonary/Chest: Effort normal and breath sounds normal. No respiratory distress. She has no wheezes. She has no rales. Abdominal: Soft. She exhibits no distension. Tenderness: to light touch in LUQ, RUQ and epigastric areas. Pt reports 6/10 pain on touch. There is no rebound and no guarding. Bowel Sounds Hypoactive Musculoskeletal: General: No edema. Neurological: She is alert and oriented to person, place, and time. Skin: Skin is warm and dry. No rash noted. She is not diaphoretic. No erythema. Psychiatric: She has a normal mood and affect. Her behavior is normal. Data: I have reviewed all new labs and studies resulted and pertinent ones are noted below BMP: Recent Labs 02/21/20 0756 02/23/20 0645 NA 141 140 K 3.8 3.4* CL 106 103 CO2 23 26 ANIONGAP 12 11 CA 8.5* 8.5* GLUCOSE 124* 116* BUN 5* 6 CREAT 0.46* 0.67 Ceasar Hortencia 02/23/2020 12:45 PM I discussed the assessment of plan for the above patient with Karen Roman MD This note may have been transcribed using [employer] speaking [employer] voice recognition without a human western felt hat blocker. This report may or may not have been adjusted for typographical, grammatical and syntax errors. This patient is covered by internal medicine residents To reach Internal Medicine covered patients: Saturday-Saturday 7 AM- 7 PM: Please contact the resident via secure chat. The resident responsible for the patient will be on the Treatment Team listed as Resident If no response you may call the refrigeration specialist editing intern at zone phone [phone]. If no response you may call the refrigeration specialist senior resident at zone phone [phone] If no response please contact the attending of record via secure chat. 7 PM to 7 AM: The long call/night float resident should be listed as Resident on the treatment team and can be reached via secure chat. If no response you may call the refrigeration specialist editing intern at zone phone [phone]. If no response you may call the refrigeration specialist senior resident at zone phone [phone] If no response please contact the Rapid [...] secure chat. If no response call the refrigeration specialist editing intern at zone phone [phone]. If no response you may call the refrigeration specialist senior resident at zone phone [phone] If no response please contact the Rapid [facility] Hospitalist via secure chat Associated attestation - Karen Thomas MD - 02/23/2020 9:03 PM CDT [facility] Adult Hospitalist Attending Note The patient was seen by myself and the medical student. I have reviewed the medical record including the medical student's note (MS3) (available as hyperlink below) on 02/23/2020 and the student's documentation reflects my exam findings and assessment and plan. I reviewed and confirmed the history, personally performed the santos physical findings, reviewed and discussed pertinent laboratory findings and discussed in person the assessment and plan (medical decision making activity) with the medical student on rounds. I also performed the critical or santos portion(s) of the service as documented below, and was directly involved in the management of the patient and supervised the care provided. The student's documentation has been reviewed with changes/additions made as appropriate. Having some pain this afternoon. No other complaints I have reviewed the physical exam findings in the medical student???s note; my notable physical exam findings include: Abd Soft, mild epigastric tenderness over abdomen I have reviewed the labs that were obtained over the last 24 hours. Notable amendments to the assessment and plan include: Acute on chronic pancreatitis - s/p apheresis, triglycerides low, plan for [place] placement with tubefeeding. Increase IV dialudid dose See medical student note for additional details. Nutrition: Current Diet and/or Nutritional Supplementation ordered: DIET CLEAR LIQUID Diabetic: Diabetic, Nutrition Diagnosis: Moderate protein-calorie malnutrition (02/22/20899) Subcutaneous Fat Loss Assessment: Mild fat loss (02/22/20899) Muscle Wasting Assessment: Mild (02/22/20899) Percentage of Energy: < 50% for > or equal to 5 days (severe-acute) (02/22/20899) Percentage of Weight Loss: Unable to assess(adm wt was stated) (02/22/20899) Labs: Evaluate Triglycerides;Evaluate CMP/BMP daily until stable (02/22/20899) PPN/TPN: TPN/PPN recommended (02/22/20899) Approximately 25 minutes was spent in the care of this patient today; more than 50% was spent in counseling and coordination of care (patient/family conference, nursing conference and/or discussion with consultants). Karen Thomas MD 02/23/2020 8:59 PM [facility] Hospitalist This patient is covered by internal medicine residents To reach Internal Medicine covered patients: Saturday-Saturday 7 AM- 7 PM: Please contact the resident via secure chat. The resident responsible for the patient will be on the Treatment Team listed as Resident If no response you may call the refrigeration specialist editing intern at zone phone [phone]. If no response you may call the refrigeration specialist senior resident at zone phone [phone] If no response please contact the attending of record via secure chat. 7 PM to 7 AM: The long call/night float resident should be listed as Resident on the treatment team and can be reached via secure chat. If no response you may call the refrigeration specialist editing intern at zone phone [phone]. If no response you may call the refrigeration specialist senior resident at zone phone [phone] If no response please contact the [facility] Hospitalist via secure chat Saturday and Saturday: 7 AM-12 PM: Please contact the resident via secure chat. The resident responsible for the patient will be on the Treatment Team listed as Resident 12 PM-7 AM: The long call/night float resident should be listed as Resident on the treatment teamand can be reached via secure chat. If no response call the refrigeration specialist editing intern at zone phone [phone]. If no response you may call the refrigeration specialist senior resident at zone phone [phone] If no response please contact the Rapid [facility] Hospitalist via secure chat * Vianey Desai, RD - 02/23/2020 9:46 AM CDT Images from the original note were not included. CLINICAL DIETITIAN PROGRESS NOTE [facility] Follow Up re: nutrition support A: Pt w/ familial hyperchylomicronemia and recurrent pancreatitis, requiring monthly apheresis treatments for high TG. Noted plans for NJ tube placement today as pt's PO intake is not meeting nutrient needs, moderate PCM diagnosed upon initial RD assessment. RD intervention/recs: Vital HP @ 60ml/hr + H20 flush 20ml/hr to provide ~1440kcal, 126g protein, 161g CHO, 33g fat (lowest on formulary,) and 1440ml H20 daily. Recommend replacing K+ prior to TF initiation as pt is at high risk of refeeding. Monitor e'lytes closely. Consider addition of thiamine 100mg daily x 5 days. Encourage PO intake as able. Anthropometrics: Height: 5' 5 (165.1 cm) (02/15/20 1656) Weight: 84.2 kg (185 lb 9.6 oz) (02/23/20 0400) Body mass index is 30.89 kg/m??. Last Bowel Movement (mm/dd/yyyy): 02/21/20 (02/22/202235) Allergies Green pepper, Adhesive, Aspartame, and Adhesive tape-silicones Skin: See Flowsheet for more wound documentation Chin Score: 20 (02/22/202235) Pert meds: protonix, humalog Lab Results Component Value Date/Time NA 140 02/23/2020 06:45 AM K 3.4 (L) 02/23/2020 06:45 AM CL 103 02/23/2020 06:45 AM BUN 6 02/23/2020 06:45 AM CREAT 0.67 02/23/2020 06:45 AM CO2 26 02/23/2020 06:45 AM GLUCOSE 116 (H) 02/23/2020 06:45 AM CA 8.5 (L) 02/23/2020 06:45 AM ALBUMIN 3.6 02/16/2020 09:20 AM GFR >60 02/23/2020 06:45 AM MG 1.7 02/23/2020 06:45 AM PO4 3.7 02/23/2020 06:45 AM DIET NPO Sips w/Meds, PO: currently NPO; was on clear liquids Nutrient needs: Kcal 7263-2487 (25-30kcal/kg IBW) Protein 68-74g (1.2-1.3g/kg IBW) D: Same/ moderate protein-calorie malnutrition I:Nutrition Intervention: as above. Direct messaged MD with recs. Goals: Tolerate TF at goal rate Transition to PO diet as able M/E: 1. Continue to monitor nutrition, weight, lab values, and skin. 2. Follow up every 1-4 days and as needed. Vianey Desai RD, LD, CNSC Available via [employer] RD office: [phone] * Cooper Kahn MD - 02/23/2020 2:52 AM CDT [facility] Internal Medicine Resident Cross Cover Call Two patient identifier: Casandra Doss 1975 Called for: NPO Status Last Recorded Vitals: BP 106/62 (BP Location: Left arm, Patient Position (BP): Sitting) Pulse 72 Temp 98.5 ??F (36.9 ??C) (Oral) Resp 16 Ht 5' 5 (1.651 m) Wt 82.6 kg (182 lb) SpO2 96% No BMI 30.29 kg/m?? Pain Rating: Rest: 7 (02/22/206) Handoff Information (if present): 44F with h/o chylomicronemia c/b recurrent pancreatitis p/w acute pancreatitis 2/2 hypertriglyceridemia. Clear liquids today- plan for NJ with fluoro tomorrow Edited by: Kortney Ray DO at 02/22/2020 1652 NTD Edited by: Kortney Ray DO at 02/22/2020 1652 Documentation/Intervention/Outcome: Chart reviewed. Called because patient was made NPO for possible [place] tube placement today and patient is in severe pain without her oral pain regimen. Okay for sips with meds at this time. 0448: Notified that patient is having soft pressures in the 90s/40s. Per chart review, this is slightly lower than the patient's baseline has been. Advised rechecking blood pressure before administering further pain medication and to notify me should the patient's blood pressure fail to correct. Please call back any time if I can be of more assistance via Secure Chat (I am listed on the treatment team) Cooper Kahn MD * Ligia Marquez ANP - 02/23/2020 12:43 AM CDT [facility] HOSPITAL[facility] NOTE 02/23/20 12:43 AM Problem: Pt NPO strict at midnight, but has been getting scheduled oral radha q 6. Wondering if I can give 6 am dose with sip of water, or if you want to do something else to compensate? Vitals: 02/22/20 0031 02/22/20 0510 02/22/20 1342 02/22/206 Temp: 97.8 ??F (36.6 ??C) 97.8 ??F (36.6 ??C) 98.3 ??F (36.8 ??C) 98.5 ??F (36.9 ??C) Pulse: 73 70 73 72 Heart Rate: BP: 103/56 102/58 112/63 106/62 Mean Arterial Pressure: 66 MM HG 67 MM HG 75 MM HG 73 MM HG Resp: 18 16 16 SpO2: 95% 97% 98% 96% Intervention/Follow up/Discussion: Upon chart review I discovered this patient is followed by the internal medicine residents. I called the nurse back and told her to page them and told her to look at the bottom of the daily progress note for instructions on how to page them. CHEO Hanna * Ceasar Burnett (Student) - 02/22/2020 11:39 AM CDT [facility] Resident Progress Note Patient Name: Casandra Doss Attending Physician: Richard Mead MD Primary Care Provider: Guerrero Middleton PA-C Date of Admission: 02/15/2020 Date of Service: 02/22/2020 Length of Stay: LOS: 7 days Previous history of present illness and review of systems have been reviewed today as documented inthe H&P on 02/15/2020; medications, labs, studies, notes, orders and consults have been reviewed. I have reviewed the notes from admission. 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 - Pt c/o acute abdominal pain in LUQ and epigastric areas with radiation to back - T (02/20), downtrending from high of 4,425 - Lipase: 68 - CT abdomen shows nonspecific 9 mm hypodense lesion in distal aspect of pancreas - Pt reports baseline pain 4-5, increases to 7-8 after drinking, worse from day prior Plan: - See diabetes plan below for insulin regimen - Stop Apheresis, TG < 500 - TG labs QD - Pain regimen: oxycodone 10 mg PO Q6H, increase dilaudid 0.5 mg IV Q4H prn, acetaminophen 1 g Q8H - Clear Liquid Diet - Senna S BID, Dulcolax QD prn - Nutrition recommendations: Daily BMP, MG, Phos, TG - Endo Recommendations: Recommend Tube feed over TPN due to hypercholesterolemia #Chylomicronemia - Undergoes monthly apheresis with port access on right and left chest - TG 319 (02/20), post-apheresis, downtrending Plan: - See below for insulin regimen - Stop apheresis - Continue home fenofibrate 160 mg PO QD - Continue home rosuvastatin 20 mg PO QD #Hypodensity in distal Pancreas - Concern for pseudocyst vs infectious etiology (less likely due to down trending WBC) Plan: - Pt will need to f/u with GI as outpatient #Insulin Dependent Type 2 Diabetes Mellitus - INFORMATION ASSURANCE 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 regimen: lantus 35 U in AM, aspart 25 U TID with meals, metformin 1 g BID with meals, empagliflozin 25 mg QD in AM, A1c 8.6 - Pt on CLD Plan: - Lantus 15 U QD, held today due to reduced oral intake - Continue Humalog SSI - Goal BS 140-180 #Hypocalcemia - Ca 7.6 Plan: - Continue to trend Ca #Hypothyroidism - TSH 20.5 - Free T4 0.32 Plan: - Endocrine consulted: recommend 200 mcg levothyroxine qd, repeat TSH in 4-6 weeks Chronic/Stable/Resolved Problems: #GERD - Continue home pantoprazole 40mg #Depression - Continue home Celexa 40 mg #Leukocytosis (resolved) - WBC 6.4, downtrending - Likely 2/2 acute pancreatitis Plan: - Continue to trend - Will continue to monitor fever curve; concern for possible infected pseudocyst vs pancreatic necrosis #Mild Hyponatremia (resolved) Plan: - Continue to monitor on BMP Nutrition: Current Diet and/or Nutritional Supplementation ordered: DIET CLEAR LIQUID Nutrition Diagnosis: Moderate protein-calorie malnutrition (02/22/20899) Subcutaneous Fat Loss Assessment: Mild fat loss (02/22/20899) Muscle Wasting Assessment: Mild (02/22/20899) Percentage of Energy: < 50% for > or equal to 5 days (severe-acute) (02/22/20899) Percentage of Weight Loss: Unable to assess(adm wt was stated) (02/22/20899) Labs: Evaluate Triglycerides;Evaluate CMP/BMP daily until stable (02/22/20899) PPN/TPN: TPN/PPN recommended (02/22/20899) Quality/Safety/Core Measures/Disposition Planning: DVT PRX:Enoxaparin Indwelling Lines/Devices: [place]: absent; reason: N/A Patient's activity prior to admission: independent Patient lives with their family in a single family home PT and OT: Yes PT POC OT POC Code Status: Full Code Current Planned Disposition - Home which I anticipate will be completed 2-3 days Subjective/Events Overnight: Ms. Doss has been receiving dilaudid, roxicodone, and tylenol for pain associated with acute pancreatitis. She states her baseline pain is 5-6/10. Pain is made worse with drinking and increases to a 7-8. She states that she has been drinking water and juice. No acute events occurred overnight. Objective BP 102/58 (BP Location: Left arm, Patient Position (BP): Supine) Pulse 70 Temp 97.8 ??F (36.6 ??C) (Oral) Resp 18 Ht 5' 5 (1.651 m) Wt 82.6 kg (182 lb) SpO2 97% No BMI 30.29 kg/m?? Temp (24hrs), Av ??F (36.7 ??C), Min:97.8 ??F (36.6 ??C), Max:98.2 ??F (36.8 ??C) Exam: Physical Exam Constitutional: She is oriented to person, place, and time. She appears well-developed. HENT: Head: Normocephalic and atraumatic. Eyes: Conjunctivae and EOM are normal. No scleral icterus. Neck: Normal range of motion. Neck supple. No JVD present. Cardiovascular: Normal rate, regular rhythm, normal heart sounds and intact distal pulses. Exam reveals no gallop and no friction rub. No murmur heard. Pulmonary/Chest: Effort normal and breath sounds normal. No respiratory distress. She has no wheezes. She has no rales. Abdominal: Soft. She exhibits no distension. There is abdominal tenderness (to light touch in LUQ and epigastric areas. Pt reports 5-6/10 pain on touch). There is no rebound and no guarding. Bowel Sounds Hypoactive Musculoskeletal: General: No edema. Neurological: She is alert and oriented to person, place, and time. Skin: Skin is warm and dry. No rash noted. She is not diaphoretic. No erythema. Psychiatric: She has a normal mood and affect. Her behavior is normal. Data: I have reviewed all new labs and studies resulted and pertinent ones are noted below BMP: Recent Labs 02/20/20 0643 02/21/20 0756 NA 140 141 K 3.3* 3.8 CL 107 106 CO2 25 23 ANIONGAP 8 12 CA 8.3* 8.5* GLUCOSE 133* 124* BUN 3* 5* CREAT 0.53 0.46* Ceasar Burnett 02/22/2020 11:40 AM I discussed the assessment of plan for the above patient with Richard Rose MD This note may have been transcribed using [employer] computerized voice recognition without a human western felt hat blocker. This report may or may not have been adjusted for typographical, grammatical and syntax errors. This patient is covered by internal medicine residents To reach Internal Medicine covered patients: Saturday-Saturday 7 AM- 7 PM: Please contact the resident via secure chat. The resident responsible for the patient will be on the Treatment Team listed as Resident If no response you may call the refrigeration specialist editing intern at zone phone [phone]. If no response you may call the refrigeration specialist senior resident at zone phone [phone] If no response please contact the attending of record via secure chat. 7 PM to 7 AM: The long call/night float resident should be listed as Resident on the treatment team and can be reached via secure chat. If no response you may call the refrigeration specialist editing intern at zone phone [phone]. If no response you may call the refrigeration specialist senior resident at zone phone [phone] If no response please contact the Rapid [...] secure chat. If no response call the refrigeration specialist editing intern at zone phone [phone]. If no response you may call the refrigeration specialist senior resident at zone phone [phone] If no response please contact the [facility] Hospitalist via secure chat Associated attestation - Richard Mead MD - 02/22/2020 5:29 PM CDT [facility] Adult Hospitalist Attending Note The patient was seen by myself and the medical student. I have reviewed the medical record including the medical student's note (MS3) (available as hyperlink below) on 02/22/2020 and the student's documentation reflects my exam findings and assessment and plan. I reviewed and confirmed the history, personally performed the santos physical findings, reviewed and discussed pertinent laboratory findings and discussed in person the assessment and plan (medical decision making activity) with the medical student on rounds. I also performed the critical or santos portion(s) of the service as documented below, and was directly involved in the management of the patient and supervised the care provided. The student's documentation has been reviewed with changes/additions made as appropriate. Abdominal pain still elevated today. Unable to tolerate any increased oral intake. I have reviewed the physical exam findings in the medical student???s note; my notable physical exam findings include: Abd Soft, epigastric TTP, BS positive I have reviewed the labs that were obtained over the last 24 hours. Notable amendments to the assessment and plan include: Acute on chronic pancreatitis - in setting hyper-TG. Oral intake and nutrition problematic. Will place [place] and initiate TF. Cont pain control and antiemetics prn. See medical student note for additional details. Nutrition: Current Diet and/or Nutritional Supplementation ordered: DIET CLEAR LIQUID DIET NPO Strict Nutrition Diagnosis: Moderate protein-calorie malnutrition (02/22/20899) Subcutaneous Fat Loss Assessment: Mild fat loss (02/22/20899) Muscle Wasting Assessment: Mild (02/22/20899) Percentage of Energy: < 50% for > or equal to 5 days (severe-acute) (02/22/20899) Percentage of Weight Loss: Unable to assess(adm wt was stated) (02/22/20899) Labs: Evaluate Triglycerides;Evaluate CMP/BMP daily until stable (02/22/20899) PPN/TPN: TPN/PPN recommended (02/22/20899) Richard Mead MD 02/22/2020 5:25 PM [facility] This patient is covered by internal medicine residents To reach Internal Medicine covered patients: Saturday-Saturday 7 AM- 7 PM: Please contact the resident via secure chat. The resident responsible for the patient will be on the Treatment Team listed as Resident If no response you may call the refrigeration specialist editing intern at zone phone [phone]. If no response you may call the refrigeration specialist senior resident at zone phone [phone] If no response please contact the attending of record via secure chat. 7 PM to 7 AM: The long call/night float resident should be listed as Resident on the treatment team and can be reached via secure chat. If no response you may call the refrigeration specialist editing intern at zone phone [phone]. If no response you may call the refrigeration specialist senior resident at zone phone [phone] If no response please contact the Rapid [...] secure chat. If no response call the refrigeration specialist editing intern at zone phone [phone]. If no response you may call the refrigeration specialist senior resident at zone phone [phone] If no response please contact the [facility] Hospitalist via secure chat * Afua John RD - 02/22/2020 9:12 AM CDT The patient was evaluated by the dietitian and was found to have Moderate protein calorie malnutrition. The malnutrition pathway is recommended and the assessment via ASPEN criteria and nutrition recommendations from the dietitian are as follows: ASPEN Malnutrition Assessment and Findings Subcutaneous Fat Loss Assessment: Mild fat loss (02/22/20899) Muscle Wasting Assessment: Mild (02/22/20899) Percentage of Energy: < 50% for > or equal to 5 days (severe-acute) (02/22/20899) Percentage of Weight Loss: Unable to assess(adm wt was stated) (02/22/20899) Malnutrition Decision Nutrition Diagnosis: Moderate protein-calorie malnutrition (02/22/20899) BMI BMI (Calculated): 30.27 (02/22/20 0510) Malnutrition Recommendations Labs: Evaluate Triglycerides;Evaluate CMP/BMP daily until stable (02/22/20899) PPN/TPN: TPN/PPN recommended (02/22/20899) * Ceasar Burnett (Student) - 02/21/2020 11:33 AM CDT [facility] Resident Progress Note Patient Name: Casandra Mccray Bryansergio Attending Physician: Richard Mead MD Primary Care Provider: Guerrero Middleton PA-C Date of Admission: 02/15/2020 Date of Service: 02/21/2020 Length of Stay: LOS: 6 days Previous history of present illness and review of systems have been reviewed today as documented inthe H&P on 02/15/2020; medications, labs, studies, notes, orders and consults have been reviewed. I have reviewed the notes from admission. 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 - Pt c/o acute abdominal pain in LUQ and epigastric areas with radiation to back - T, downtrending from high of 4,425 - Lipase: 68 - CT abdomen shows nonspecific 9 mm hypodense lesion in distal aspect of pancreas - Pt reports baseline pain 3-4, increases to 6-7 after eating Plan: - See diabetes plan below for insulin regimen - Stop Apheresis, TG < 500 - TG labs QD - Pain regimen: oxycodone 10 mg PO Q6H, dilaudid 0.3 mg IV Q4H prn, acetaminophen 1 g Q8H - Clear Liquid Diet - Senna S BID, Dulcolax QD prn - Nutrition consulted #Chylomicronemia - Undergoes monthly apheresis with port access on right and left chest - TG 319, post-apheresis, downtrending Plan: - Endocrine consulted: recommend switch Lantus and Humalog SSI (see above). - Stop apheresis - Continue home fenofibrate 160 mg PO QD - Continue home rosuvastatin 20 mg PO QD #Hypodensity in distal Pancreas - Concern for pseudocyst vs infectious etiology (less likely due to down trending WBC) Plan: - Pt will need to f/u with GI as outpatient #Insulin Dependent Type 2 Diabetes Mellitus - INFORMATION ASSURANCE MANAGER regimen: lantus 35 U in AM, aspart 25 U TID with meals, metformin 1 g BID with meals, empagliflozin 25 mg QD in AM, A1c 8.6 - Pt BS at 51 overnight, lantus held this AM Plan: - Holding lantus 35U, give single dose of lantus 15U, reevaluate dosage tomorrow - Continue Humalog SSI - Goal BS 140-180 #Hypocalcemia - Ca 7.6 Plan: - Continue to trend Ca #Hypothyroidism - TSH 20.5 - Free T4 0.32 Plan: - Endocrine consulted: recommend 200 mcg levothyroxine qd, repeat TSH in 4-6 weeks Chronic/Stable/Resolved Problems: #GERD - Continue home pantoprazole 40mg #Depression - Continue home Celexa 40 mg #Leukocytosis (resolved) - WBC 6.4, downtrending - Likely 2/2 acute pancreatitis Plan: - Continue to trend - Will continue to monitor fever curve; concern for possible infected pseudocyst vs pancreatic necrosis #Mild Hyponatremia (resolved) Plan: - Continue to monitor on BMP Nutrition: Current Diet and/or Nutritional Supplementation ordered: DIET CLEAR LIQUID Quality/Safety/Core Measures/Disposition Planning: DVT PRX:Enoxaparin Indwelling Lines/Devices: [place]: absent; reason: N/A Patient's activity prior to admission: independent Patient lives with their family in a single family home PT and OT: Yes PT POC OT POC Code Status: Full Code Current Planned Disposition - Home which I anticipate will be completed 2-3 days Subjective/Events Overnight: Ms. Doss has been receiving dilaudid, roxicodone, and tylenol for pain associated with acute pancreatitis. She states her baseline pain is 3-4/10. Pain is made worse with eating and increases to a 6-7 and lasts for a couple of hours after. She states that she has beendrinking water and juice and has had soup and crackers. She reports two episodes of loose diarrhea overnight. Pt had BS at 51 last night. She was given juice and BS increased to 65. Glargine was heldthis morning. No other acute events occurred overnight. Objective BP 100/56 (BP Location: Right arm, Patient Position (BP): Lying right side) Pulse 76 Temp 98.5 ??F (36.9 ??C) (Oral) Resp 16 Ht 5' 5 (1.651 m) Wt 77.1 kg (170 lb) SpO2 98% No BMI 28.29 kg/m?? Temp (24hrs), Av.6 ??F (37 ??C), Min:98.5 ??F (36.9 ??C), Max:98.6 ??F (37 ??C) Exam: Physical Exam Constitutional: She is oriented to person, place, and time. She appears well-developed. HENT: Head: Normocephalic and atraumatic. Eyes: Conjunctivae and EOM are normal. No scleral icterus. Neck: Normal range of motion. Neck supple. No JVD present. No tracheal deviation present. No thyromegaly present. Cardiovascular: Normal rate, regular rhythm, normal heart sounds and intact distal pulses. Exam reveals no gallop and no friction rub. No murmur heard. Pulmonary/Chest: Effort normal and breath sounds normal. No respiratory distress. She has no wheezes. She has no rales. Abdominal: Soft. Bowel sounds are normal. She exhibits no distension. There is abdominal tenderness(to light touch in LUQ, RUQ and epigastric areas. Pt reports 4-5/10 pain on touch). Musculoskeletal: General: No edema. Neurological: She is alert and oriented to person, place, and time. Skin: Skin is warm and dry. No rash noted. She is not diaphoretic. No erythema. Psychiatric: She has a normal mood and affect. Her behavior is normal. Data: I have reviewed all new labs and studies resulted and pertinent ones are noted below BMP: Recent Labs 02/19/20 0814 02/20/20 0643 02/21/20 0756 NA 141 140 141 K 3.9 3.3* 3.8 CL 113* 107 106 CO2 20* 25 23 ANIONGAP 8 8 12 CA 7.3* 8.3* 8.5* GLUCOSE 119* 133* 124* BUN 2* 3* 5* CREAT 0.46* 0.53 0.46* Ceasar Burnett 02/21/2020 11:34 AM I discussed the assessment of plan for the above patient with Richard Rose MD This note may have been transcribed using [employer] speaking computerized voice recognition without a human western felt hat blocker. This report may or may not have been adjusted for typographical, grammatical and syntax errors. This patient is covered by internal medicine residents To reach Internal Medicine covered patients: Saturday-Saturday 7 AM- 7 PM: Please contact the resident via secure chat. The resident responsible for the patient will be on the Treatment Team listed as Resident If no response you may call the refrigeration specialist editing intern at zone phone [phone]. If no response you may call the refrigeration specialist senior resident at zone phone [phone] If no response please contact the attending of record via secure chat. 7 PM to 7 AM: The long call/night float resident should be listed as Resident on the treatment team and can be reached via secure chat. If no response you may call the refrigeration specialist editing intern at zone phone [phone]. If no response you may call the refrigeration specialist senior resident at zone phone [phone] If no response please contact the Rapid [...] secure chat. If no response call the refrigeration specialist editing intern at zone phone [phone]. If no response you may call the refrigeration specialist senior resident at [facility] phone [phone] If no response please contact the Rapid [facility] Hospitalist via secure chat Associated attestation - Richard Mead MD - 02/21/2020 12:43 PM CDT [facility] Adult Hospitalist Attending Note The patient was seen by myself and the medical student. I have reviewed the medical record including the medical student's note (MS3) (available as hyperlink below) on 02/21/2020 and the student's documentation reflects my exam findings and assessment and plan. I reviewed and confirmed the history, personally performed the santos physical findings, reviewed and discussed pertinent laboratory findings and discussed in person the assessment and plan (medical decision making activity) with the medical student on rounds. I also performed the critical or santos portion(s) of the service as documented below, and was directly involved in the management of the patient and supervised the care provided. The student's documentation has been reviewed with changes/additions made as appropriate. Tried solids this AM with acute increase in pain. Pain previously had been controlled. I have reviewed the physical exam findings in the medical student???s note; my notable physical exam findings include: Abd Soft, epigastric TTP, ND, BS+ I have reviewed the labs that were obtained over the last 24 hours. Notable amendments to the assessment and plan include: Acute on chronic pancreatitis - continues to fail solid food challenge. Back off to CLD today. Contpain control. Consult dietary, may need to explore alternate options for nutrition. See medical student note for additional details. Nutrition: Current Diet and/or Nutritional Supplementation ordered: DIET CLEAR LIQUID Richard Mead MD 02/21/2020 12:37 PM [facility] Hospitalist This patient is covered by internal medicine residents To reach Internal Medicine covered patients: Saturday-Saturday 7 AM- 7 PM: Please contact the resident via secure chat. The resident responsible for the patient will be on the Treatment Team listed as Resident If no response you may call the refrigeration specialist editing intern at zone phone [phone]. If no response you may call the refrigeration specialist senior resident at zone phone [phone] If no response please contact the attending of record via secure chat. 7 PM to 7 AM: The long call/night float resident should be listed as Resident on the treatment team and can be reached via secure chat. If no response you may call the refrigeration specialist editing intern at zone phone [phone]. If no response you may call the refrigeration specialist senior resident at zone phone [phone] If no response please contact the Rapid [...] secure chat. If no response call the refrigeration specialist editing intern at zone phone [phone]. If no response you may call the refrigeration specialist senior resident at zone phone [phone] If no response please contact the Rapid [facility] Hospitalist via secure chat * Ligia Munroe DO - 02/20/2020 6:49 PM CDT [facility] Internal Medicine Resident Cross Cover Call Two patient identifier: Casandra Doss [id number] Called for: blood glucose 51 Last Recorded Vitals: BP 108/57 (BP Location: Right arm, Patient Position (BP): Supine) Pulse 75 Temp 98.1 ??F (36.7 ??C) (Oral) Resp 16 Ht 5' 5 (1.651 m) Wt 77.1 kg (170 lb) SpO2 96% No BMI 28.29 kg/m?? Pain Rating: Rest: 4 (02/20/20 1825) Handoff Information (if present): 44F with h/o chylomicronemia c/b recurrent pancreatitis p/w acute pancreatitis 2/2 hypertriglyceridemia. Off insulin gtt. Pain control. Edited by: Kortney Ray DO at 02/19/2020 1638 Edited by: Korntey Ray DO at 02/19/2020 1638 Documentation/Intervention/Outcome: Chart reviewed. Contacted by RN. Blood glucose reading 51. Given apple juice. Recheck 65. Started on hypoglycemia pathway. Patient placed on D5NS 40cc/hr. Will continue to monitor. Please call back any time if I can be of more assistance via Secure Chat (I am listed on the treatment team) Ligia Munroe DO * Abhay Griffiths RN - 02/20/2020 5:07 PM CDT ? Approved by: [facility] - Medical Executive Committee Approval Date: 08/18/2019 Adult Bowel Routine Protocol- [facility] ORDERS ARE ENTERED ???PER PROTOCOL?? Enter the protocol in the patient???s electronic health record using VB R[employer] .adultbowelroutineprotocol Patient Population: RN to initiate for patients utilizing or have anticipated utilization of OPIOIDS 2 or more times per day and/or patients who have not had a bowel movement within 48 hours, either prior to admission or during current admission. Patient population excluded from protocol (contact provider for bowel routine orders): Patients with bowel obstruction, Post GI surgery or anyone with status of NPO that cannot take medications by mouth. ??? RN to hold ordered bowel medications if patient is experiencing loose stools or has more than 2bowel movements per day. Nursing Orders: ??? Encourage adequate oral hydration as permissible per ordered diet ??? Encourage ambulation as per activity order ??? Encourage gum chewing as patient is able to participate between meals Medication Orders: Note: If at any time patient is experiencing loose stools or has more than 2 bowel movement per day, RN to HOLD ordered bowel medications. ??? Upon initiation: o Scheduled bowel therapy o Senna S 2 tablets by mouth daily at bedtime, first dose may be given now. o PRN therapy (Offer PRN therapy, patient to select which they would prefer) o Miralax 17 grams mixed in water/juice/soda by mouth every 12 hours PRN constipation o Dulcolax 1 suppository given rectally every 12 hours PRN constipation o If no bowel movement within 24 hours proceed to step 2. ??? Step 2: o Scheduled bowel therapy (increase scheduled therapy) o Continue Senna S 2 tablets by mouth twice daily. o Add Miralax 17 grams mixed in water/juice/soda by mouth twice daily, first dose may be given now. o PRN therapy (Offer PRN therapy, patient to select which they would prefer) o Dulcolax 1 tablet by mouth every 12 hours PRN unrelieved by scheduled bowel routine o Dulcolax 1 suppository given rectally every 12 hours PRN constipation unrelieved by scheduled bowel routine o If no bowel movement within 24 hours or more on Step 2 medications, proceed to step 3 ??? Step 3: o Scheduled bowel therapy (add to scheduled therapy) o Increase Senna S to 3 tablets by mouth twice daily o Miralax 17 grams mixed with water/juice/soda by mouth twice daily, first dose may be given now. o PRN therapy (Offer PRN therapy, patient to select which they would prefer) o Dulcolax 2 tablets by mouth every 12 hours PRN unrelieved by scheduled bowel routine o Dulcolax 1 suppository given rectally every 12 hours PRN constipation unrelieved by scheduled bowel routine o If no bowel movement within 24 hours or more on Step 3 medications, proceed to Step 4. ??? Step 4: o Administer current scheduled and PRN therapy o Contact provider for further orders. If during nightshift, contact provider during morning rounds. * Richard Mead MD - 02/20/2020 8:52 AM CDT [facility] Adult Progress Note Admit Date: 02/15/2020 Date of Note: 02/20/2020, 8:52 AM LOS: 5 days Plan Active Problems: Principal Problem: Acute on chronic pancreatitis Active Problems: Chylomicronemia syndrome Hypertriglyceridemia Depression with anxiety Tobacco use Type 2 diabetes mellitus without complication, with long-term current use of insulin Acquired hypothyroidism Uncontrolled type 2 diabetes mellitus with hyperglycemia Acute on Chronic Pancreatitis - 2/2 hyper-TG. Slowly improving. Attempted to advance diet yesterdaywith recurrence of pain. CLD for now; may try and advance later this evening if patient desires to.Cont pain control with oxycodone 10 mg Q6H, dilaudid 0.3 mg IV Q4H. On bowel regimen though has hadminimal intake. Chylomicronemia syndrome - TG 341 this AM from high of >4000. S/p pheresis x3. Endocrinology assistance this admission appreciated. Cont Statin, fenofibrate. Pancreatic Hypodensity - new on CT this admission. Will need outpatient GI f/u. Chronic/Stable/Resolved Problems: IDDM Type II - Cont glargine 35 U QAM, aspart 25 TID with meals. 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 Current Planned Disposition - Dispo: home pending improvement in pain and oral intake, which will like take an additional 1-2 days. Subjective Previous history of present illness and review of systems have been reviewed today as documented inthe H&P on 02/15/2020; medications, labs, studies, notes, orders and consults have been reviewed. I have reviewed the notes from yesterday. Overnight patient had some increasing pain overnight. Taking some clears but did not tolerate solids yesterday. Objective BP 104/59 (BP Location: Right arm, Patient Position (BP): Sitting) Pulse 89 Temp 98.3 ??F (36.8??C) (Oral) Resp 14 Ht 5' 5 (1.651 m) Wt 77.1 kg (170 lb) SpO2 98% No BMI 28.29 kg/m?? Temp (24hrs), Av.4 ??F (36.9 ??C), Min:98.1 ??F (36.7 ??C), Max:98.9 ??F (37.2 ??C) Exam: Gen alert, cooperative, no distress, appears stated age Lungs clear to auscultation bilaterally Heart regular rate and rhythm, S1, S2 normal, no murmur, click, rub or gallop Abdomen soft, epigastric/upper abdominal TTP. Bowel sounds normal. No masses, No organomegaly Extremities extremities normal, atraumatic, no cyanosis or edema Mental Status AOx4 Data: I have reviewed all new labs and studies resulted and pertinent ones are noted below: BG ok. Mild hypokalemia. Renal function stable. TG down to 341. Richard Mead MD This patient is covered by internal medicine residents To reach Internal Medicine covered patients: Saturday-Saturday 7 AM- 5 PM: [facility] 5 PM-7 AM: Call the refrigeration specialist editing intern at [employer] phone [phone]. If no response please page the senior resident at [phone] Saturday and Saturday: 7 AM-12 PM: [facility] 12 PM-7 AM: Call the refrigeration specialist editing intern at [employer] phone [phone]. If no response please page the senior resident at [phone] If no response to the above steps in 10 minutes, please page the attending physician. * Antwon Silver RN - 02/19/2020 10:50 PM CDT Transport picked up pt to transfer to room 6353. VSS A&Ox4 * Antwon Silver RN - 02/19/2020 10:15 PM CDT Report called to CLAU Mercer for room 6353. VSS, A&Ox4 * Ceasar Burnett (Student) - 02/19/2020 11:38 AM CDT [facility] Resident Progress Note Patient Name: Casandra Doss Attending Physician: Richard Mead MD Primary Care Provider: Guerrero Middleton PA-C Date of Admission: 02/15/2020 Date of Service: 02/19/2020 Length of Stay: LOS: 4 days Previous history of present illness and review of systems have been reviewed today as documented inthe H&P on 02/15/2020; medications, labs, studies, notes, orders and consults have been reviewed. I have reviewed the notes from admission. 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 - Pt c/o acute abdominal pain in LUQ and epigastric areas with radiation to back - T, downtrending from high of 4,425 - Lipase: 68 - CT abdomen shows nonspecific 9 mm hypodense lesion in distal aspect of pacreas Plan: - Stop Insulin gtt, begin Lantus 35 U QD in AM and Humalog SSI QAC - IVF: NS at 125 cc/hr - Stop Apheresis, TG < 500 - TG labs qd - Pain regimen: oxycodone 10 mg PO Q6H, reduce dilaudid to 0.3 mg IV Q8H prn, Acetaminophen 1 g Q8H - Senna S BID, Dulcolax QD prn #Chylomicronemia - Undergoes monthly apheresis with port access on right and left chest - TG 404, post-apheresis, downtrending Plan: - Endocrine consulted: recommend switch Lantus and Humalog SSI (see above). - Stop apheresis - Continue home fenofibrate 160 mg PO QD - Continue home rosuvastatin 20 mg PO QD #Hypodensity in distal Pancreas - Concern for pseudocyst vs infectious etiology (less likely due to down trending WBC) Plan: - Consider abdominal US vs EUS #Leukocytosis (resolved) - WBC 6.4, downtrending - Likely 2/2 acute pancreatitis Plan: - Continue to trend - Will continue to monitor fever curve; concern for possible infected pseudocyst vs pancreatic necrosis #Hypocalcemia - Ca 7.6 Plan: - Continue to trend Ca #Mild Hyponatremia (resolved) Plan: - Continue to monitor on BMP #Hypothyroidism - TSH 20.5 - Free T4 0.32 Plan: - Endocrine consulted: recommend 200 mcg levothyroxine qd, repeat TSH in 4-6 weeks Chronic/Stable/Resolved Problems: #GERD - Continue home pantoprazole 40mg #Insulin Dependent Type 2 Diabetes Mellitus - INFORMATION ASSURANCE MANAGER regimen: Glargine 35 U in AM, aspart 25 U TID with meals, metformin 1 g BID with meals, empagliflozin 25 mg QD in AM, A1c 8.6 - Stop Insulin gtt, see above - Continue to titrate for goal BG 140-180 #Depression - Continue home Celexa 40 mg Nutrition: Current Diet and/or Nutritional Supplementation ordered: DIET DIABETIC 40 GM Fat (Low fat), Quality/Safety/Core Measures/Disposition Planning: DVT PRX:Enoxaparin Indwelling Lines/Devices: [place]: absent; reason: N/A Patient's activity prior to admission: independent Patient lives with their family in a single family home PT and OT: Yes PT POC OT POC Code Status: Full Code Current Planned Disposition - Home which I anticipate will be completed 2-3 days Subjective/Events Overnight: Ms. Doss has been receiving dilaudid, roxicodone, and tylenol pain associated with acute pancreatitis. She states her pain is persistent but has been reduced to 4-5/10.She describes it as a burning sensation in the left upper abdomen that radiates to the back. She isable to drink some water and states that she consumed toast and potatoes last night and tolerated it well. No acute events occurred overnight. Objective BP 111/65 (BP Location: Left arm, Patient Position (BP): Supine) Pulse 88 Temp 98.1 ??F (36.7 ??C) (Oral) Resp 11 Ht 5' 5 (1.651 m) Wt 77.1 kg (170 lb) SpO2 94% No BMI 28.29 kg/m?? Temp (24hrs), Av.4 ??F (36.9 ??C), Min:98.1 ??F (36.7 ??C), Max:98.6 ??F (37 ??C) Exam: Physical Exam Constitutional: She is oriented to person, place, and time. She appears well-developed. HENT: Head: Normocephalic and atraumatic. Eyes: Conjunctivae are normal. No scleral icterus. Neck: Normal range of motion. Neck supple. No JVD present. Cardiovascular: Normal rate, regular rhythm, normal heart sounds and intact distal pulses. Exam reveals no gallop and no friction rub. No murmur heard. Pulmonary/Chest: Effort normal and breath sounds normal. No respiratory distress. She has no wheezes. She has no rales. Abdominal: She exhibits no distension. There is abdominal tenderness (to light touch in LUQ, RUQ and epigastric areas). Bowel Sounds hypoactive Musculoskeletal: General: No tenderness or edema. Neurological: She is alert and oriented to person, place, and time. Skin: Skin is warm and dry. No rash noted. She is not diaphoretic. No erythema. Psychiatric: She has a normal mood and affect. Her behavior is normal. Data: I have reviewed all new labs and studies resulted and pertinent ones are noted below CBC: Recent Labs 02/17/20 0632 02/18/20 0404 WBC 13.1* 6.4 HGB 11.5* 10.9* HCT 33.9* 32.2* PLT 226 218 MCV 90.2 89.9 BMP: Recent Labs 02/17/20 2357 02/18/20 1738 02/19/20 0814 NA 138 139 141 K 3.8 3.7 3.9 CL 109* 109* 113* CO2 21* 20* 20* ANIONGAP 8 10 8 CA 7.6* 7.8* 7.3* GLUCOSE 165* 171* 119* BUN 2* <2* 2* CREAT 0.43* 0.39* 0.46* Ceasar Burnett 02/19/2020 11:39 AM I discussed the assessment of plan for the above patient with Dr. Mead, Richard Garcia MD This note may have been transcribed using [employer] speaking computerized voice recognition without a human western felt hat blocker. This report may or may not have been adjusted for typographical, grammatical and syntax errors. This patient is covered by internal medicine residents To reach Internal Medicine covered patients: Saturday-Saturday 7 AM- 7 PM: Please contact the resident via secure chat. The resident responsible for the patient will be on the Treatment Team listed as Resident If no response you may call the refrigeration specialist editing intern at [employer] phone [phone]. If no response you may call the refrigeration specialist senior resident at [employer] phone [phone] If no response please contact the attending of record via secure chat. 7 PM to 7 AM: The long call/night float resident should be listed as Resident on the treatment team and can be reached via secure chat. If no response you may call the refrigeration specialist editing intern at [employer] phone [phone]. If no response you may call the refrigeration specialist senior resident at [employer] phone [phone] If no response please contact the Rapid [...] secure chat. If no response call the refrigeration specialist editing intern at [employer] phone [phone]. If no response you may call the refrigeration specialist senior resident at [employer] phone [phone] If no response please contact the [facility] Hospitalist via secure chat Associated attestation - Richard Mead MD - 02/19/2020 2:59 PM CDT [facility] Adult Hospitalist Attending Note The patient was seen by myself and the medical student. I have reviewed the medical record including the medical student's note (MS3) (available as hyperlink below) on 02/19/2020 and the student's documentation reflects my exam findings and assessment and plan. I reviewed and confirmed the history, personally performed the santos physical findings, reviewed and discussed pertinent laboratory findings and discussed in person the assessment and plan (medical decision making activity) with the medical student on rounds. I also performed the critical or santos portion(s) of the service as documented below, and was directly involved in the management of the patient and supervised the care provided. The student's documentation has been reviewed with changes/additions made as appropriate. Reports pain is decreasing though still 4-5/10. Initially told me she wanted to go home this afternoon, however pain not controlled off of IV narcotics following lunch. I have reviewed the physical exam findings in the medical student???s note; my notable physical exam findings include: Abd Soft, mild TTP in the epigastrum, BS+ I have reviewed the labs that were obtained over the last 24 hours. Notable amendments to the assessment and plan include: Acute on chronic pancreatitis - improving though still with some ongoing pain. Minimize IV narcotic. TG now below 500 so stop insulin gtt and transition to subQ insulin. Cont statin, fibrate. Hopefully pain control can be achieved in the next 24 hrs. See medical student note for additional details. Nutrition: Current Diet and/or Nutritional Supplementation ordered: DIET DIABETIC 40 GM Fat (Low fat), Richard Mead MD 02/19/2020 2:40 PM [facility] Hospitalist This patient is covered by internal medicine residents To reach Internal Medicine covered patients: Saturday-Saturday 7 AM- 7 PM: Please contact the resident via secure chat. The resident responsible for the patient will be on the Treatment Team listed as Resident If no response you may call the refrigeration specialist editing intern at [employer] phone [phone]. If no response you may call the refrigeration specialist senior resident at [employer] phone [phone] If no response please contact the attending of record via secure chat. 7 PM to 7 AM: The long call/night float resident should be listed as Resident on the treatment team and can be reached via secure chat. If no response you may call the refrigeration specialist editing intern at [employer] phone [phone]. If no response you may call the refrigeration specialist senior resident at [employer] phone [phone] If no response please contact the Rapid [...] secure chat. If no response call the refrigeration specialist editing intern at [employer] phone [phone]. If no response you may call the refrigeration specialist senior resident at [employer] phone [phone] If no response please contact the [facility] Hospitalist via secure chat * Lorrie Moreland RN - 02/19/2020 5:33 AM CDT Shift Note: VSS. Will continue to monitor. Triglycerides were 404 this morning. Paged the resident to turn insulin drip off. Received orders to defer to day team Neuro: A&O X4 CV: SR. afebrile Resp: RA GI: no bowel movement this shift : voided per bathroom. Adequate UOP Pain/Delirium/Sleep: slept throughout the night. Pain controlled with PRN Dilaudid and scheduled tylenol and Balwinder Activity: Appropriate level of activity: independent Shift Undress and Assess performed by two coworkers: 1. CLAU Oliveros 2. PHOEBE Pritchett The patient does not have existing skin breakdown, if yes, describe: n/a The patient does not have new purple/sissy/dark red over ANY bony prominences (ears, elbows, knees, heels, coccyx, hips, occiput), if yes, describe: n/a ~If ANY answer 'yes'- please re-consult and call wound care~ Wound care consult was not in place. Wound care consult was not initiated. Are there currently any skin protectant dressings in place, if yes, where? none If yes, please describe condition of skin under dressing: n/a If no, were any applied and where: none Are there any currently any medical devices in place (leg immobilizers, FMS, c- collars, splints, etc.)? none If yes, describe skin under device: n/a Education: Patient has Chin Score of 19. Patient educated on importance of q2 hour [...] staff. Patient/family demonstrates understanding of stated education. * Cooper Kahn MD - 02/18/2020 8:12 PM CDT [facility] Internal Medicine Resident Cross Cover Call Two patient identifier: Casandra Doss [id number] Called for: Patient requesting home Trazodone. Last Recorded Vitals: BP 118/75 (BP Location: Right arm, Patient Position (BP): Supine) Pulse 83 Temp 98.6 ??F (37 ??C) (Oral) Resp 12 Ht 5' 5 (1.651 m) Wt 77.1 kg (170 lb) SpO2 98% No BMI 28.29 kg/m?? Pain Rating: Rest: 7 (02/18/20 1742) Handoff Information (if present): 44F with h/o chylomicronemia c/b recurrent pancreatitis p/w acute pancreatitis 2/2 hypertriglyceridemia. Started on insulin gtt. Edited by: Cooper Kahn MD at 02/16/2020 0320 BMP BID- watch K on insulin gtt Edited by: Kortney Ray DO at 02/18/2020 6735 Documentation/Intervention/Outcome: Chart reviewed. Called because patient is requesting home trazodone to help her sleep. Chart reviewed; patient taking 100 mg trazodone nightly. Confirmed with patient. Will prescribe one time dose of trazodone [address] Yamil Tran. Please call back any time if I can be of more assistance via Secure Chat (I am listed on the treatment team) Cooper Kahn MD * Katie Herrera RN - 02/18/2020 6:31 PM CDT More of an appetite today. Pt is just tired of being poked every hour for the insulin drip. Eager to be off of the drip. Prn dilaudid and scheduled Balwinder and Tylenol given for abd pain. VSS. * Alize Arteaga MD - 02/18/2020 4:54 PM CDT CC: ??44??yo female??with acute on chronic pancreatitis requires plasma exchange (ASFA category IIIindication for apheresis). ?? HPI:??Patient presented to ED on 02/14 with severe abdominal pain with nausea and vomiting for one day. CT confirmed a diagnosis of acute pancreatitis.? PMH: ??Hypertriglyceridemia (associated with prior episodes of [...] Oriented x 3 - Normal Affect ?Labs: 02/18/2020??preprocedure triglyceride??744 ?? A&P: 1. 44??yo female with??acute??recurrent??hypertriglyceridemic pancreatitis requires??urgent??plasmaexchange.?? 2.??We will perform a 1.0 volume plasma exchange with all albumin replacement with 100% fluid balance with 2 g calcium gluconate over the procedure. We will perform daily treatments until triglycerides < 500. 3.??Patient has??recurrent pancreatitis??and was??initiated on prophylactic plasma exchange for prevention of hypertriglyceridemic pancreatitis starting 11/12/18??in consultation with Drs. Blaire Suarez.??(ASFA category III indication for apheresis).??Patient had been receiving exchanges every28 days as an outpatient. ? I have seen and examined the patient, reviewed pertinent notes and records, and remained immediately available throughout the procedure. ?? Alize Arteaga MD, PhD Dispatcher Maintenance Service, therapeutic apheresis service [phone] ?? Procedure??notes:??Procedure performed using R and L ports.??Patient tolerated procedure well. * Eliane Rosado MD - 02/18/2020 4:47 PM CDT Pt seen for inpatient follow up of hypertriglyceridemia. Sub: pt still has 5-6 abdominal pain./ No nausea or vomiting. Passing gas. No bm since admission. Pt started on clear liquids yesterday- c/o poor appetite. Allergies Allergen Reactions ??? Green Pepper Hives ??? Adhesive Unknown ??? Aspartame Headache All artificial sweeteners. ??? Adhesive Tape-Silicones Hives Exam: Vitals: 02/18/20 1047 02/18/20 1116 02/18/20 1500 02/18/20 1556 BP: 109/72 113/71 123/72 BP Location: Right arm Right arm Right arm Patient Position (BP): Supine Supine Pulse: 86 83 78 Resp: 14 14 14 Temp: 98.1 ??F (36.7 ??C) 98.3 ??F (36.8 ??C) TempSrc: Oral Oral SpO2: 93% 95% 97% 97% Weight: Height: Gen: Awake and alert Neuro: Oriented x 3, non focal , SPARKS equally HEENT: PERRL, trachea midline, oral mucosa dry Cardiac: HRRR no murmur, no JVD or cyanosis Pulm: RR even unlabored, LCTA bilaterally Abdomen: TTP- epigastric and LUQ . Skin: no rashes. Extremities: no edema, 1+ pulses Lab Results Component Value Date/Time NA 138 02/17/2020 11:57 PM K 3.8 02/17/2020 11:57 PM CL 109 (H) 02/17/2020 11:57 PM CO2 21 (L) 02/17/2020 11:57 PM CA 7.6 (L) 02/17/2020 11:57 PM BUN 2 (L) 02/17/2020 11:57 PM CREAT 0.43 (L) 02/17/2020 11:57 PM GLUCOSE 165 (H) 02/17/2020 11:57 PM TOTALPROTEIN 6.3 (L) 02/16/2020 09:20 AM ALBUMIN 3.6 02/16/2020 09:20 AM BILITOTAL <0.2 (L) 02/16/2020 09:20 AM ALKPHOS 81 02/16/2020 09:20 AM AST 02/16/2020 09:20 AM Comment: Unable to result due to lipemia. Unable to evaluate due to lipemia. ALT 02/16/2020 09:20 AM Comment: Unable to result due to lipemia. Unable to evaluate due to lipemia. ANIONGAP 8 02/17/2020 11:57 PM Lab Results Component Value Date/Time CHOLTOT 162 02/01/2019 10:15 PM HDL 30 (L) 02/01/2019 10:15 PM LDLCALC 02/01/2019 10:15 PM Comment: Calculated LDL is not accurate when the Triglyceride value exceeds 400. LDLDIRECT 110 08/10/2011 07:21 AM TRIGLYCERIDE 744 (H) 02/18/2020 04:04 AM A/p: hypertriglyceredemia /chylomicronemia syndrome : pt received 2 plasma pheresis since this hospital admission and will receive one more today since TG still >700. Continue with statin and fenofibrate. If TG in am < 500 and pain better - advance diet as tolerated. Dm2: continue insulin gtt. Would expect TG to be < 500 tomorrow . Then will change insulin gtt to lantus 35 units qam and humalog ssi qac. After stopping insulin gtt in am. Acute on chronic pancreatitis : due to # 1 . Plasma pheresis , fenofibrate, insulin gtt as above. Pain control prn and advanced diet as above. Hypothyroidism : levothyroxine 200 mcg daily tsh in 6 weeks as outpatient and adjust dose to keep pt euthyroid. Thank you for allowing me to participate in the care of this patient. Please feel free to call me if you have any questions. Sincerely, Suzi Rosado MD * Karen Domingo, RD - 02/18/2020 4:27 PM CDT Images from the original note were not included. CLINICAL DIETITIAN PROGRESS NOTE [facility] Nutrition Follow Up Pt reports that she only began feeling poorly 1 day INFORMATION ASSURANCE MANAGER, but it was sudden. She remains nauseous with some abd pain. She has been sipping water and juices, but does not like the sugary juices much. She feels she might tolerate some mashed potatoes or toast better. INFORMATION ASSURANCE MANAGER she was doing [employer] (5 in 1 meal plan of provided foods 5x/day + 1 meal of veggie and protein) diet suggested by [facility]. She uses their bars and on occasion the shakes. Advance as tolerated per resident, d/w via secure chat. RN going to order up some soft foods to try. Pt may like Extreme Ice (low fat, 17g CHO, 20g protein). Assessment: Anthropometrics: Height: 5' 5 (165.1 cm) (02/15/201655) Weight: 77.1 kg (170 lb) (02/15/201655) Body mass index is 28.29 kg/m??. Last Bowel Movement (mm/dd/yyyy): (INFORMATION ASSURANCE MANAGER) (02/18/20 1000) No BM Chin Score: 17 (02/18/20 1000) Lab Results Component Value Date/Time NA 138 02/17/2020 11:57 PM K 3.8 02/17/2020 11:57 PM CL 109 (H) 02/17/2020 11:57 PM BUN 2 (L) 02/17/2020 11:57 PM CREAT 0.43 (L) 02/17/2020 11:57 PM GLUCOSE 165 (H) 02/17/2020 11:57 PM CA 7.6 (L) 02/17/2020 11:57 PM ALBUMIN 3.6 02/16/2020 09:20 AM GFR >60 02/17/2020 11:57 PM MG 1.7 04/15/2019 03:22 AM PO4 3.7 08/23/2018 07:04 AM Skin: intact Nutrition Prescription: DIET CLEAR LIQUID Intake Points: CLD Nutrition intake is is meeting less than 50% of recommended nutritional needs D: Same/ Inadequate oral intake I:Nutrition Intervention: 1. Advancing diet, will try extreme ice 2. Continue to encourage small frequent intake of low CHO and low fat. Pt can have home food brought in if needed 3. If unable to tolerate oral diet, may need to consider nutrition support Goal: Consume 75% of meals/ supplements M/E: 1. Continue to monitor: Anthropometrics, Digestive, Skin, and Biochemical data 2. Follow up every 4-5 days and as needed. Karen Domingo RD LD Contact via [employer] Secure Chat Phone #: [phone] * Ceasar Burnett (Student) - 02/18/2020 12:13 PM CDT Kevin Pedroza Resident Progress Note Patient Name: Casandra Doss Attending Physician: Richard Mead MD Primary Care Provider: Guerrero Middleton PA-C Date of Admission: 02/15/2020 Date of Service: 02/18/2020 Length of Stay: LOS: 3 days Previous history of present illness and review of systems have been reviewed today as documented inthe H&P on 02/15/2020; medications, labs, studies, notes, orders and consults have been reviewed. I have reviewed the notes from admission. 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 - Pt c/o acute abdominal pain in LUQ and epigastric areas with radiation to back - T, downtrending from high of 4,425 - Lipase: 68 - CT abdomen shows nonspecific 9 mm hypodense lesion in distal aspect of pacreas Plan: - Insulin gtt - IVF: KCl NS + Dextrose at 125 cc/hr - BMP BID - Apheresis daily until TG < 500 - TG labs q12h - Pain regimen: oxycodone 10 mg PO Q6H, reduce dilaudid to 0.3 mg IV Q4H prn, Acetaminophen 1 g Q8H - Senna S BID, Dulcolax QD prn #Chylomicronemia - Undergoes monthly apheresis with port access on right and left chest - TG 744, post-apheresis, downtrending Plan: - Endocrine consulted: recommend continue insulin gtt, switch to SQ insulin if TG < 500. Start clear liquid diet. - Apheresis planned - Continue home fenofibrate 160 mg PO QD - Continue home rosuvastatin 20 mg PO QD #Hypodensity in distal Pancreas - Concern for pseudocyst vs infectious etiology (less likely due to down trending WBC) Plan: - Consider abdominal US vs EUS #Leukocytosis (resolved) - WBC 6.4, downtrending - Likely 2/2 acute pancreatitis Plan: - Continue to trend - Will continue to monitor fever curve; concern for possible infected pseudocyst vs pancreatic necrosis #Hypocalcemia - Ca 7.6 Plan: - Continue to trend Ca #Mild Hyponatremia (resolved) Plan: - Continue to monitor on BMP #Hypothyroidism - TSH 20.5 - Free T4 0.32 Plan: - Endocrine consulted: recommend 200 mcg levothyroxine qd, repeat TSH in 4-6 weeks Chronic/Stable/Resolved Problems: #GERD - Continue home pantoprazole 40mg #Insulin Dependent Type 2 Diabetes Mellitus - INFORMATION ASSURANCE MANAGER regimen: Glargine 35 U in AM, aspart 25 U TID with meals, metformin 1 g BID with meals, empagliflozin 25 mg QD in AM, A1c 8.6 - Insulin gtt - Continue to titrate for goal BG 140-180 #Depression - Continue home Celexa 40 mg Nutrition: Current Diet and/or Nutritional Supplementation ordered: DIET CLEAR LIQUID Quality/Safety/Core Measures/Disposition Planning: DVT PRX:Enoxaparin Indwelling Lines/Devices: [place]: absent; reason: N/A Patient's activity prior to admission: independent Patient lives with their family in a single family home PT and OT: Yes PT POC OT POC Code Status: Full Code Current Planned Disposition - Home which I anticipate will be completed 2-3 days Subjective/Events Overnight: Ms. Doss has been receiving dilaudid, roxicodone, and tylenol pain associated with acute pancreatitis. She states her pain is persistent and remained at 7/10. She describes it as a burning sensation in the left upper abdomen that radiates to the back. She is able to tolerate small amounts of water. She was not able to tolerate juice. No acute events occurred overnight. Objective BP 113/71 (BP Location: Right arm, Patient Position (BP): Supine) Pulse 83 Temp 98.3 ??F (36.8 ??C) (Oral) Resp 14 Ht 5' 5 (1.651 m) Wt 77.1 kg (170 lb) SpO2 95% No BMI28.29 kg/m?? Temp (24hrs), Av.3 ??F (36.8 ??C), Min:98.1 ??F (36.7 ??C), Max:98.7 ??F (37.1 ??C) Exam: Physical Exam Constitutional: She is oriented to person, place, and time. She appears well-developed. HENT: Head: Normocephalic and atraumatic. Eyes: Conjunctivae are normal. No scleral icterus. Neck: Neck supple. No JVD present. No tracheal deviation present. No thyromegaly present. Cardiovascular: Normal rate, regular rhythm, normal heart sounds and intact distal pulses. Exam reveals no gallop and no friction rub. No murmur heard. Pulmonary/Chest: Effort normal and breath sounds normal. No respiratory distress. She has no wheezes. She has no rales. Abdominal: She exhibits no distension. There is abdominal tenderness (to light touch in LUQ, RUQ and epigastric areas). Bowel Sounds hypoactive Musculoskeletal: General: No tenderness or edema. Neurological: She is alert and oriented to person, place, and time. Skin: Skin is warm and dry. No rash noted. She is not diaphoretic. No erythema. Psychiatric: She has a normal mood and affect. Her behavior is normal. Data: I have reviewed all new labs and studies resulted and pertinent ones are noted below CBC: Recent Labs 02/16/20 0521 02/17/20 0632 02/18/20 0404 WBC 17.5* 13.1* 6.4 HGB 11.7* 11.5* 10.9* HCT 37.8 33.9* 32.2* PLT 353* 226 218 MCV 89.8 90.2 89.9 BMP: Recent Labs 02/17/20 0811 02/17/20 1610 02/17/20 2357 NA 138 139 138 K 4.5 3.9 3.8 CL 108* 109* 109* CO2 22 18* 21* ANIONGAP 8 12 8 CA 7.7* 7.5* 7.6* GLUCOSE 147* 185* 165* BUN 2* 2* 2* CREAT 0.49* 0.38* 0.43* Ceasar Burnett 02/18/2020 12:13 PM I discussed the assessment of plan for the above patient with Dr. Mead, Richard Garcia MD This note may have been transcribed using [employer] speaking computerized voice recognition without a human western felt hat blocker. This report may or may not have been adjusted for typographical, grammatical and syntax errors. This patient is covered by internal medicine residents To reach Internal Medicine covered patients: Saturday-Saturday 7 AM- 7 PM: Please contact the resident via secure chat. The resident responsible for the patient will be on the Treatment Team listed as Resident If no response you may call the refrigeration specialist editing intern at zone phone [phone]. If no response you may call the refrigeration specialist senior resident at zone phone [phone] If no response please contact the attending of record via secure chat. 7 PM to 7 AM: The long call/night float resident should be listed as Resident on the treatment team and can be reached via secure chat. If no response you may call the refrigeration specialist editing intern at [facility] phone [phone]. If no response you may call the refrigeration specialist senior resident at [facility] phone [phone] If no response please contact the [facility] [...] secure chat. If no response call the refrigeration specialist editing intern at [facility] phone [phone]. If no response you may call the refrigeration specialist senior resident at [facility] phone [phone] If no response please contact the [facility] Hospitalist via secure chat Associated attestation - Richard Mead MD - 02/18/2020 10:20 PM CDT [facility] Adult Hospitalist Attending Note The patient was seen by myself and the medical student. I have reviewed the medical record including the medical student's note (MS3) (available as hyperlink below) on 02/18/2020 and the student's documentation reflects my exam findings and assessment and plan. I reviewed and confirmed the history, personally performed the santos physical findings, reviewed and discussed pertinent laboratory findings and discussed in person the assessment and plan (medical decision making activity) with the medical student on rounds. I also performed the critical or santos portion(s) of the service as documented below, and was directly involved in the management of the patient and supervised the care provided. The student's documentation has been reviewed with changes/additions made as appropriate. Continues to have abdominal pain though responding to current regimen. Appetite remains poor. I have reviewed the physical exam findings in the medical student???s note; my notable physical exam findings include: Abd Soft, upper abdominal TTP, BS hypoactive but present, ND I have reviewed the labs that were obtained over the last 24 hours. Notable amendments to the assessment and plan include: Acute on chronic pancreatitis - in setting of hypertriglyceridemia. Pheresis again today. Cont insulin gtt; appreciate assistance from endocrinology, pathology. Cont statin, fibrate. Pain control prn, clears for now and advance as tolerated. See medical student note for additional details. Nutrition: Current Diet and/or Nutritional Supplementation ordered: DIET CLEAR LIQUID Richard Mead MD 02/18/2020 10:15 PM [facility] Hospitalist This patient is covered by internal medicine residents To reach Internal Medicine covered patients: Saturday-Saturday 7 AM- 7 PM: Please contact the resident via secure chat. The resident responsible for the patient will be on the Treatment Team listed as Resident If no response you may call the refrigeration specialist editing intern at [facility] phone [phone]. If no response you may call the refrigeration specialist senior resident at zone phone [phone] If no response please contact the attending of record via secure chat. 7 PM to 7 AM: The long call/night float resident should be listed as Resident on the treatment team and can be reached via secure chat. If no response you may call the refrigeration specialist editing intern at [facility] phone [phone]. If no response you may call the refrigeration specialist senior resident at zone phone [phone] If no response please contact the [facility] Access Hospitalist via secure chat Saturday and Saturday: 7 AM-12 PM: Please contact the resident via secure chat. The resident responsible for the patient will be on the Treatment Team listed as Resident 12 PM-7 AM: The long call/night float resident should be listed as Resident on the treatment teamand can be reached via secure chat. If no response call the refrigeration specialist editing intern at [facility] phone [phone]. If no response you may call the refrigeration specialist senior resident at zone phone [phone] If no response please contact the [facility] Hospitalist via secure chat * Robyn Hernandez RN - 02/18/2020 11:17 AM CDT Plasma exchange #3 completed using R and L chest apheresis ports. 1.0 [place], 100% fluid balance using 5% Albumin as replacement fluid. Pt tolerated well. * Katie Herrera RN - 02/17/2020 6:39 PM CDT Pt remains on insulin gtt. Very poor appetite and PO intake. Only drank a cranberry juice today. Ptjust seems withdrawn. Balwinder, Tylenol, and dilaudid given for abd pain. VSS. No other complaints. * Alize Arteaga MD - 02/17/2020 4:54 PM CDT CC: ??44??yo female with acute on chronic pancreatitis requires plasma exchange (ASFA category III indication for apheresis). ?? HPI:??Patient presented to ED on 02/14 with severe abdominal pain with nausea and vomiting for one day. CT confirmed a diagnosis of acute pancreatitis. ?? PMH: ??Hypertriglyceridemia (associated with prior episodes [...] Oriented x 3 - Normal Affect ?Labs: 02/17/2020??preprocedure triglyceride 1,105 ?? A&P: 1. 44??yo female with??acute recurrent??hypertriglyceridemic pancreatitis requires??urgent??plasma exchange. 2. We will perform a 1.0 volume plasma exchange with all albumin replacement with 100% fluid balance with 2 g calcium gluconate over the procedure. We will perform daily treatments until triglycerides < 500. 3. Patient has??recurrent pancreatitis??and was??initiated on prophylactic plasma exchange for prevention of hypertriglyceridemic pancreatitis starting 11/12/18??in consultation with Drs. Rudd and Moreno.??(ASFA category III indication for apheresis). Patient had been receiving exchanges every 28 days as an outpatient. ? I have seen and examined the patient, reviewed pertinent notes and records, and remained immediately available throughout the procedure. ?? Alize Arteaga MD, PhD Dispatcher Maintenance Service, therapeutic apheresis service [phone] ?? Procedure??notes:??Procedure performed using R and L ports. Patient tolerated procedure well. Discussed with Casandra that we may consider tapering treatments as an outpatient to get back to the every 28days schedule. Casandra is discouraged that despite serious efforts to maintain a low fat diet and get physical activity, she still got acute pancreatitis. We discussed that even with great efforts, we might only be able to minimize, not completely eliminate episodes of pancreatitis. We reflected on decreased frequency of episodes of acute pancreatitis since she has made her diet and wellness changes. * Eliane Rosado MD - 02/17/2020 2:51 PM CDT TG > 1000 down from > 4000 Repeat plasma pheresis today. Continue insulin gtt, NPO today and pain control. Repeat TG in am and if < 500- will change insulin gtt to basal /bolus sq insulin. Thank you for allowing me to participate in the care of this patient. Please feel free to call me if you have any questions. Sincerely, Suzi Rosado MD * Sharri Juarez RN - 02/17/2020 11:51 AM CDT Plasma exchange #2 completed today using R and L chest BARD ports for draw and return. Used 5% Albumin as replacement fluid for a 1.0 volume exchange with a 100% fluid balance. Patient tolerated the procedure well. * Ceasar Burnett (Student) - 02/17/2020 11:32 AM CDT [facility] Resident Progress Note Patient Name: Casandra Doss Attending Physician: Jamar Pelaez MD Primary Care Provider: Guerrero Middleton PA-C Date of Admission: 02/15/2020 Date of Service: 02/17/2020 Length of Stay: LOS: 2 days Previous history of present illness and review of systems have been reviewed today as documented inthe H&P on 02/15/2020; medications, labs, studies, notes, orders and consults have been reviewed. I have reviewed the notes from admission. 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 - Pt c/o acute abdominal pain in LUQ and epigastric areas with radiation to back - T,105 down from 4,425 - Lipase: 68 - CT abdomen shows nonspecific 9 mm hypodense lesion in distal aspect of pacreas Plan: - Insulin gtt - IVF: KCl NS + Dextrose at 125 cc/hr - BMP q8h - Apheresis daily until TG < 500 - TG labs q12h - Pain regimen: oxycodone 10 mg PO Q6H, reduce dilaudid to 0.3 mg IV Q2H prn, Acetaminophen 1 g Q8H - Senna S BID, Dulcolax QD prn #Chylomicronemia - Undergoes monthly apheresis with port access on right and left chest - TG 1,105, post-apheresis, downtrending Plan: - Endocrine consulted: recommend continue insulin gtt, switch to SQ insulin if TG < 500. Start clear liquid diet. - Apheresis planned - Continue home fenofibrate 160 mg PO QD - Continue home rosuvastatin 20 mg PO QD #Hypodensity in distal Pancreas - Concern for pseudocyst vs infectious etiology (less likely due to down trending WBC) Plan: - Consider abdominal US tomorrow #Leukocytosis - WBC 13.1, downtrending - Likely 2/2 acute pancreatitis Plan: - Continue to trend - Will continue to monitor fever curve; concern for possible infected pseudocyst vs pancreatic necrosis #Hypocalcemia - Ca 7.9 Plan: - Continue to trend Ca #Mild Hyponatremia (resolving) Plan: - Continue to monitor on BMP #Hypothyroidism - TSH 20.5 - Free T4 0.32 Plan: - Endocrine consulted: recommend 200 mcg levothyroxine qd, repeat TSH in 4-6 weeks Chronic/Stable/Resolved Problems: #GERD - Continue home pantoprazole 40mg #Insulin Dependent Type 2 Diabetes Mellitus - INFORMATION ASSURANCE MANAGER regimen: Glargine 35 U in AM, aspart 25 U TID with meals, metformin 1 g BID with meals, empagliflozin 25 mg QD in AM, A1c 8.6 - Insulin gtt - Continue to titrate for goal BG 140-180 #Depression - Continue home Celexa 40 mg Nutrition: Current Diet and/or Nutritional Supplementation ordered: DIET CLEAR LIQUID Quality/Safety/Core Measures/Disposition Planning: DVT PRX:Enoxaparin Indwelling Lines/Devices: [place]: absent; reason: N/A Patient's activity prior to admission: independent Patient lives with their family in a single family home PT and OT: Yes PT POC OT POC Code Status: Full Code Current Planned Disposition - Home which I anticipate will be completed 2-3 days Subjective/Events Overnight: Ms. Doss has been receiving dilaudid, roxicodone, and tylenol pain associated with acute pancreatitis. She rates her pain is persistent but has improved to 7/10 burningsensation in the left upper abdominal region that continues to radiate to the back. She is able to tolerate small amounts of water. She was not able to tolerate apple juice. No acute events occurred overnight. Objective BP 106/69 (BP Location: Right arm, Patient Position (BP): Supine) Pulse 90 Temp 98.6 ??F (37 ??C) (Oral) Resp 15 Ht 5' 5 (1.651 m) Wt 77.1 kg (170 lb) SpO2 90% No BMI 28.29 kg/m?? Temp (24hrs), Av.6 ??F (37 ??C), Min:98.3 ??F (36.8 ??C), Max:99 ??F (37.2 ??C) Exam: Physical Exam Constitutional: She is oriented to person, place, and time. She appears well- developed. No distress. HENT: Right Ear: External ear normal. Left Ear: External ear normal. Nose: Nose normal. Mouth/Throat: Oropharynx is clear and moist. No oropharyngeal exudate. Eyes: Pupils are equal, round, and reactive to light. Conjunctivae and EOM are normal. No scleral icterus. Neck: Neck supple. No JVD present. No tracheal deviation present. No thyromegaly present. Cardiovascular: Regular rhythm, normal heart sounds and intact distal pulses. Exam reveals no gallop and no friction rub. No murmur heard. Tachycardia present on ascultation Pulmonary/Chest: Breath sounds normal. No respiratory distress. She has no wheezes. She has no rales. Abdominal: She exhibits no distension. There is abdominal tenderness (to light touch in LUQ and epigastric areas). Bowel Sounds hypoactive Musculoskeletal: General: No tenderness or edema. Lymphadenopathy: She has no cervical adenopathy. Neurological: She is alert and oriented to person, place, and time. No cranial nerve deficit. Skin: Skin is warm and dry. No rash noted. She is not diaphoretic. No erythema. Psychiatric: She has a normal mood and affect. Her behavior is normal. Data: I have reviewed all new labs and studies resulted and pertinent ones are noted below CBC: Recent Labs 02/15/20 1821 02/16/20 0521 02/17/20 0632 WBC 16.1* 17.5* 13.1* HGB 12.5 11.7* 11.5* HCT 41.5 37.8 33.9* PLT 320 353* 226 MCV 89.1 89.8 90.2 BMP: Recent Labs 02/16/20 1340 02/17/20 0200 02/17/20 0811 NA 138 138 138 K 3.4* 4.0 4.5 CL 106 105 108* CO2 17* 21* 22 ANIONGAP 15 12 8 CA 7.5* 7.9* 7.7* GLUCOSE 124* 165* 147* BUN 3* 3* 2* CREAT 0.41* 0.39* 0.49* Ceasar Marquisneelam 02/17/2020 11:33 AM I discussed the assessment of plan for the above patient with Jamar Woods MD This note may have been transcribed using [employer] speaking computerized voice recognition without a human western felt hat blocker. This report may or may not have been adjusted for typographical, grammatical and syntax errors. This patient is covered by internal medicine residents To reach Internal Medicine covered patients: Saturday-Saturday 7 AM- 7 PM: Please contact the resident via secure chat. The resident responsible for the patient will be on the Treatment Team listed as Resident If no response you may call the refrigeration specialist editing intern at [facility] phone [phone]. If no response you may call the refrigeration specialist senior resident at [facility] phone [phone] If no response please contact the attending of record via secure chat. 7 PM to 7 AM: The long call/night float resident should be listed as Resident on the treatment team and can be reached via secure chat. If no response you may call the refrigeration specialist editing intern at [facility] phone [phone]. If no response you may call the refrigeration specialist senior resident at [facility] phone [phone] If no response please contact the Rapid [...] secure chat. If no response call the refrigeration specialist editing intern at [facility] phone [phone]. If no response you may call the refrigeration specialist senior resident at [facility] phone [phone] If no response please contact the [facility] Hospitalist via secure chat Associated attestation - Jamar Pelaez MD - 02/17/2020 2:54 PM CDT [facility] Adult Hospitalist Attending Note I reviewed the medical record including the resident???s note (Dr Burnett) (available as hyperlink below). I was present with the resident and participated during the history and physical examination of the patient on 02/17/2020. The laboratory findings and assessment and plan was reviewed with the resident. I also performed the critical or santos portion(s) of the service as documented below, and wasdirectly involved in the management of the patient and supervised the care provided. Epigastric pain improved some, but persistent Seen during plasma exchange I have reviewed the physical exam findings in the resident???s note; my notable physical exam findings include: General Heart Abdominal Awake, alert, acute distress from pain S1/S2, tachy Soft, bowel sounds present, tenderness over epigastric, no guarding I have reviewed the labs that were obtained over the last 24 hours. Notable amendments to the assessment and plan include: Active Hospital Problems Diagnosis Uncontrolled type 2 diabetes mellitus with hyperglycemia Acute on chronic pancreatitis Acquired hypothyroidism Type 2 diabetes mellitus without complication, with long-term current use of insulin Tobacco use Hypertriglyceridemia Chylomicronemia syndrome Depression with anxiety Resolved Hospital Problems No resolved problems to display. 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 - on clear, consider full liquid if pain improves this afternoon - c/w insulin drip - c/w IVF - PRN Tylenol, oxycodone, IV Dilaudid for pain control - appreciate 's assistance for plasma exchange - triglyceride trending down Hypodensity lesion in distal pancreas- obtain US when pain better controlled(consider reach for EUS instead of abd US) Leukocytosis-suspect reactive, no signs of ongoing infection at this moment, monitor WBC trend Hypothyroidism-noted elevated TSH and low free T4, currently on levothyroxine 200 mcg; Endo serviceconsulted, c/w current dosage See resident note for additional details. Nutrition: Current Diet and/or Nutritional Supplementation ordered: DIET CLEAR LIQUID Jamar Pelaez MD 02/17/2020 2:52 PM [facility] Hospitalist Approximately 40 minutes was spent in the care of this patient today; more than 50% was spent in counseling and coordination of care (patient/family conference, nursing conference and/or discussion with consultants). This patient is covered by internal medicine residents; per ACGME guidelines residents must write orders for patients under their care, with appropriate supervision by the attending physician . Please contact the attending physician on covered patients only if you are unable to reach the resident,or if you have an emergency. To reach Internal Medicine covered patients: Saturday-Saturday 7 AM- 7 PM: Please contact the resident via secure chat. The resident responsible for the patient will be on the Treatment Team listed as Resident If no response you may call the refrigeration specialist editing intern at [facility] phone [phone]. If no response you may call the refrigeration specialist senior resident at [facility] phone [phone] If no response please contact the attending of record via secure chat. 7 PM to 7 AM: The long call/night float resident should be listed as Resident on the treatment team and can be reached via secure chat. If no response you may call the refrigeration specialist editing intern at [facility] phone [phone]. If no response you may call the refrigeration specialist senior resident at [facility] phone [phone] Saturday and Saturday: 7 AM-12 PM: Please contact the resident via secure chat. The resident responsible for the patient will be on the Treatment Team listed as Resident 12 PM-7 AM: The long call/night float resident should be listed as Resident on the treatment teamand can be reached via secure chat. If no response call the refrigeration specialist editing intern at [facility] phone [phone]. If no response you may call the refrigeration specialist senior resident at [facility] phone [phone] If no response please contact the [facility] Hospitalist via secure chat. * Janie Elizabeth GN - 02/16/2020 6:28 PM CDT SHIFT UPDATE Assumed pt care upon admission to 4224. Pt arrived to room in 02/05 abdominal pain, MD notified and multiple medication modalities given with eventual relief. Plasma exchange this shift. Pts at bedside. Insulin infusion at 3.2 Units/hr. NEURO: A&Ox4. C/o abdominal pain, scheduled Balwinder and Tylenol and PRN Dilaudid given. C/o nausea, no emesis this shift, PRN Zofran given. RESP: RA-2L NC. Clear BS. CARDIAC: NSR-ST. SBP 100-140. 2/2 pulses. Afebrile. SubQ Lovenox. 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 Up to bathroom. Clear liquid diet. SKIN/ACTIVITY: No skin issues. Self turn. Standby assist with ambulation. * Alize Arteaga MD - 02/16/2020 3:10 PM CDT CC: ??44??yo female with acute on chronic pancreatitis requires plasma exchange (ASFA category III indication for apheresis). ?? HPI:??Patient presented to ED on 02/14 with severe abdominal pain with nausea and vomiting for one day. CT confirmed a diagnosis of acute pancreatitis. ?? PMH: ??Hypertriglyceridemia (associated with prior episodes [...] Oriented x 3 - Normal Affect ?Labs: 02/16/2020 WBC 17.5, hemoglobin 11.7, hematocrit 37.8, platelets 353 02/16/2020 preprocedure triglyceride >4,425 ?? A&P: 1. 44??yo female with??acute recurrent??hypertriglyceridemic pancreatitis requires??urgent??plasma exchange. 2. We will perform a 1.0 volume plasma exchange with all albumin replacement with 100% fluid balance with 2 g calcium gluconate over the procedure. We will perform daily treatments until triglycerides < 500. 3. Patient has??recurrent necrotizing pancreatitis??and was??initiated on prophylactic plasma exchange for prevention of hypertriglyceridemic pancreatitis starting 11/12/18??in consultation with Drs. Rudd and Moreno.??(ASFA category III indication for apheresis). Patient had been receiving exchanges every 28 days as an outpatient. ?? I have seen and examined the patient, reviewed pertinent notes and records, and remained immediately available throughout the procedure. ?? Alize Arteaga MD, PhD Dispatcher Maintenance Service, therapeutic apheresis service [phone] ?? Procedure??notes:??Procedure performed using R port and R forearm peripheral access. L port required cathflo x 2 hours to achieve patency. Attempt will be made to use L and R ports for procedure tomorrow AM. Patient otherwise tolerated procedure well. * Puja Paz RN - 02/16/2020 1:58 PM CDT Plasma exchange #1 completed using R bard port and R forearm peripheral stick. 1.0 Volume, 100% fluid balance using 5% albumin as replacement fluid. Pt tolerated the procedure well. Next procedure scheduled for tomorrow 02/17/2020. * Ceasar Burnett (Student) - 02/16/2020 11:09 AM CDT [facility] Res[facility] Progress Note Patient Name: Casandra Doss Attending Physician: Jamar Pelaez MD Primary Care Provider: Guerrero Middleton PA-C Date of Admission: 02/15/2020 Date of Service: 02/16/2020 Length of Stay: LOS: 1 day Previous history of present illness and review of systems have been reviewed today as documented inthe H&P on 02/15/2020; medications, labs, studies, notes, orders and consults have been reviewed. I have reviewed the notes from admission. 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 - Pt c/o acute abdominal pain in LUQ and epigastric areas with radiation to back - T,425 - Lipase: 68 - CT abdomen shows nonspecific 9 mm hypodense lesion in distal aspect of pacreas Plan: - Insulin gtt - IVF: KCl NS + Dextrose at 125 cc/hr - BMP q4h - Apheresis - TG labs q12h - Pain regimen: oxycodone 10 mg PO Q6H, dilaudid 0.5 mg IV Q2H prn, Acetaminophen 1 g Q8H - Senna S BID, Dulcolax QD prn #Chylomicronemia - Undergoes monthly apheresis with port access on right and left chest - TG 4,425 Plan: - Endocrine consulted - Apheresis planned - Continue home fenofibrate 160 mg PO QD - Continue home rosuvastatin 20 mg PO QD #Hypodensity in distal Pancreas - Concern for pseudocyst vs infectious etiology Plan: - Consider abdominal US vs EUS after pancreatitis settles #Leukocytosis - WBC 17.5 - Likely 2/2 acute pancreatitis Plan: - Continue to trend - Will continue to monitor fever curve; concern for possible infected pseudocyst vs pancreatic necrosis #Hypocalcemia - Ca 7.1, was 9.2 02/14 Plan: - Continue to trend Ca #Mild Hyponatremia Plan: - Continue to monitor on BMP #Hypothyroidism - TSH 20.5 - Free T4 0.32 Plan: - Endocrine consulted, waiting on recs for levo dosage - Continue home levothyroxine 200 mg - Order TSH lab Chronic/Stable/Resolved Problems: #GERD - Continue home pantoprazole 40mg #Insulin Dependent Type 2 Diabetes Mellitus - INFORMATION ASSURANCE MANAGER regimen: Glargine 35 U in AM, aspart 25 U TID with meals, metformin 1 g BID with meals, empagliflozin 25 mg QD in AM, A1c pending - Insulin gtt - Continue to titrate for goal BG 140-180 #Depression - Continue home Celexa 40 mg Nutrition: Current Diet and/or Nutritional Supplementation ordered: DIET NPO Sips w/Meds, Quality/Safety/Core Measures/Disposition Planning: DVT PRX:Heparin Indwelling Lines/Devices: [place]: absent; reason: N/A Patient's activity prior to admission: independent Patient lives with their family in a single family home PT and OT: Yes PT POC OT POC Code Status: Full Code Current Planned Disposition - Home which I anticipate will be completed 2-3 days Subjective/Events Overnight: Ms. Doss received dilaudid, morphine, and [place] overnight for severepain. Her insulin gtt was stopped twice due to low glucose labs, but were later restarted. On interview, she states that she is continuing to experience severe pain that is 10/10. She states that it feels like a burning sensation and radiates to the back. No other acute events occurred overnight. Objective BP 105/68 (BP Location: Right arm, Patient Position (BP): Supine) Pulse 99 Temp 98.5 ??F (36.9 ??C) (Oral) Resp 18 Ht 5' 5 (1.651 m) Wt 77.1 kg (170 lb) SpO2 95% No BMI28.29 kg/m?? Temp (24hrs), Av.6 ??F (37 ??C), Min:98.3 ??F (36.8 ??C), Max:98.9 ??F (37.2 ??C) Exam: Physical Exam Constitutional: She is oriented to person, place, and time. She appears well- developed. She appearsdistressed. HENT: Right Ear: External ear normal. Left Ear: External ear normal. Nose: Nose normal. Mouth/Throat: Oropharynx is clear and moist. No oropharyngeal exudate. Eyes: Pupils are equal, round, and reactive to light. Conjunctivae are normal. No scleral icterus. Neck: Neck supple. No JVD present. No tracheal deviation present. No thyromegaly present. Cardiovascular: Regular rhythm, normal heart sounds and intact distal pulses. Exam reveals no gallop and no friction rub. No murmur heard. Tachycardia present on ascultation Pulmonary/Chest: Tachypnea on exam. Respiratory exam difficult to interpret due to pt discomfort and groaning from pain Abdominal: She exhibits no distension. There is abdominal tenderness (to light touch in LUQ, LLQ, and epigastric areas). Bowel Sounds hypoactive Musculoskeletal: General: No tenderness or edema. Lymphadenopathy: She has no cervical adenopathy. Neurological: She is alert and oriented to person, place, and time. Skin: Skin is warm and dry. No rash noted. No erythema. Psychiatric: She has a normal mood and affect. Her behavior is normal. Data: I have reviewed all new labs and studies resulted and pertinent ones are noted below CBC: Recent Labs 02/15/20 1821 02/16/20 0521 WBC 16.1* 17.5* HGB 12.5 11.7* HCT 41.5 37.8 PLT 320 353* MCV 89.1 89.8 BMP: Recent Labs 02/15/20 1821 02/16/20 0045 NA 132* 134* K 4.5 -- CL 92* 102 CO2 22 20* ANIONGAP 18* 12 CA 9.2 7.1* GLUCOSE 220* 171* BUN 5* 4* CREAT 0.41* 0.34* Ceasar Burnett 02/16/2020 11:10 AM I discussed the assessment of plan for the above patient with Jamar Woods MD This note may have been transcribed using [employer] speaking computerized voice recognition without a human western felt hat blocker. This report may or may not have been adjusted for typographical, grammatical and syntax errors. This patient is covered by internal medicine residents To reach Internal Medicine covered patients: Saturday-Saturday 7 AM- 7 PM: Please contact the resident via secure chat. The resident responsible for the patient will be on the Treatment Team listed as Resident If no response you may call the refrigeration specialist editing intern at zone phone [phone]. If no response you may call the refrigeration specialist senior resident at zone phone [phone] If no response please contact the attending of record via secure chat. 7 PM to 7 AM: The long call/night float resident should be listed as Resident on the treatment team and can be reached via secure chat. If no response you may call the refrigeration specialist editing intern at zone phone [phone]. If no response you may call the refrigeration specialist senior resident at zone phone [phone] If no response please contact the Rapid [...] secure chat. If no response call the refrigeration specialist editing intern at zone phone [phone]. If no response you may call the refrigeration specialist senior resident at zone phone [phone] If no response please contact the Rapid [facility] Hospitalist via secure chat Associated attestation - Jamar Pelaez MD - 02/16/2020 4:20 PM CDT [facility] Adult Hospitalist Attending Note I reviewed the medical record including the resident???s note (Dr Burnett) (available as hyperlink below). I was present with the resident and participated during the history and physical examination of the patient on 02/16/2020. The laboratory findings and assessment and plan was reviewed with the resident. I also performed the critical or santos portion(s) of the service as documented below, and wasdirectly involved in the management of the patient and supervised the care provided. Severe epigastric pain, mild improvement after IV dilaudid I have reviewed the physical exam findings in the resident???s note; my notable physical exam findings include: General Heart Abdominal Awake, alert, acute distress from pain S1/S2, tachy Soft, bowel sounds present, tenderness over epigastric, no guarding I have reviewed the labs that were obtained over the last 24 hours. Notable amendments to the assessment and plan include: Active Hospital Problems Diagnosis Acute on chronic pancreatitis Acquired hypothyroidism Type 2 diabetes mellitus without complication, with long-term current use of insulin Tobacco use Hypertriglyceridemia Chylomicronemia syndrome Depression with anxiety Resolved Hospital Problems No resolved problems to display. 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 Nutrition: Current Diet and/or Nutritional Supplementation ordered: DIET NPO Sips w/Meds, Jamar Pelaez MD 02/16/2020 4:13 PM [facility] Hospitalist Approximately 40 minutes was spent in the care of this patient today; more than 50% was spent in counseling and coordination of care (patient/family conference, nursing conference and/or discussion with consultants). This patient is covered by internal medicine residents; per ACGME guidelines residents must write orders for patients under their care, with appropriate supervision by the attending physician . Please contact the attending physician on covered patients only if you are unable to reach the resident,or if you have an emergency. To reach Internal Medicine covered patients: Saturday-Saturday 7 AM- 7 PM: Please contact the resident via secure chat. The resident responsible for the patient will be on the Treatment Team listed as Resident If no response you may call the refrigeration specialist editing intern at zone phone [phone]. If no response you may call the refrigeration specialist senior resident at zone phone [phone] If no response please contact the attending of record via secure chat. 7 PM to 7 AM: The long call/night float resident should be listed as Resident on the treatment team and can be reached via secure chat. If no response you may call the refrigeration specialist editing intern at zone phone [phone]. If no response you may call the refrigeration specialist senior resident at zone phone [phone] Saturday and Saturday: 7 AM-12 PM: Please contact the resident via secure chat. The resident responsible for the patient will be on the Treatment Team listed as Resident 12 PM-7 AM: The long call/night float resident should be listed as Resident on the treatment teamand can be reached via secure chat. If no response call the refrigeration specialist editing intern at zone phone [phone]. If no response you may call the refrigeration specialist senior resident at zone phone [phone] If no response please contact the [facility] Hospitalist via secure chat. * Janie Elizabeth GN - 02/16/2020 8:19 AM CDT ?UNDRESS AND ASSESS FOR ALL ADMISSIONS AND TRANSFERS: Remove all existing dressings and assess all wounds upon admission (unless instructed by physician). Undress and Assess performed by: bedside coworker CLAU Lima and bedside coworker PHOEBE Jj Upon admission to 4224 Chin Score: Chin Score: 20 (02/16/20 0800) 1. Patient does not have skin breakdown. ??? If yes o Description of wound location and appearance: o LDA added for any open areas and for non-blanching pink/red or purple areas? N/A (please note, heels, ankles, knees, hips, sacrum, coccyx, ischium, gluteal, occiput, spine and all skin folds are high risk for skin breakdown) and consult wound care services 2. Was wound photographed: N/A 3. Is a specialty support surface utilized? N/A If yes, which one?: n/a i.e. impaired mobility, bariatric, malnourished, existing pressure injury. 4. Is the patient a paraplegic/quadriplegic? No If so, if stable spine immediately place on specialty surface. If unstable spine or new spinal injury, consult physician (per facility process) and consult wound care services. 5. Is a medical accountant in place?no If yes, remove device/brace/splint to [...] patient q 2 h, elevate heels etc.) Yes 9. Was the Skin Care Treatment: Pressure Injury/Lower Extremity Ulcer Pathway initiated, and appropriate interventions selected? N/A(i.e. cleanse and apply silicone border dressing to skin tears, cleanse and apply antifungal to affected skin folds and apply soft linen or Interdry between folds etc.). Wound care consult was not initiated. [facility] Skin Care Injury Prevention and Treatment Protocol [facility] Approved by: [facility] - Medical Executive Committee Approval [...] treatments found in the Wound Care Algorithm. Pt belongings (including clothes and shoes) with pt. * Loki Vences MD - 02/15/2020 10:53 PM CDT [facility] Hospitalist Brief Progress note Issue being addressed: New admission, acute pancreatitis. O: Vitals: 02/15/20 2151 BP: (!) 130/106 Pulse: 95 Resp: 20 Temp: 98.5 ??F (36.9 ??C) SpO2: 96% Intervention/Outcome: patient seen/examined, full HPI/orders to follow. In short, hx chylomicronemia requiring repeated admissions for pancreatitis with insulin gtt for hyperTG and apheresis. Followswith Dr. Arteaga, pathology, for monthly apheresis- last 01/24. TG 4,425 Admit to TCU for insulin gtt. Repeat NS bolus. Aggressive IVF and pain control. TG Q12H for now Resident service following. D/W Dr. Lyn and Dr. Kahn, TY1. Please call any time with questions. Loki Vences MD Adult Hospitalist Physician This patient is on the resident teaching service. Please page the on-call resident for further orders. Call back if any difficulty reaching their service or need for urgent management. documented in this encounter H&P Notes * Cooper Kahn MD - 02/15/2020 8:45 PM CDT [facility] Internal Medicine Teaching Service History & Physical Patient Name: Casandra Doss Attending Physician: Matteo Lyn MD Primary Care Provider: Guerrero Middleton PA-C Date of Admission: 02/15/2020 Date of Service: 02/16/2020 Chief Complaint: Abdominal Pain HPI: Casandra Doss is a 44 y.o. female with a history of chylomicronemia syndrome (receives monthlyapheresis by pathologist Dr. 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 The patient reports that her pain began yesterday in the left upper quadrant and has steadily worsened since that time. The pain is constant and burning and feels similar to previous episodes of pancreatitis. It is located across the epigastrium with radiation to the back. The patient also reports associated nausea with 2 episodes of non-bloody,non-bilious emesis. Her symptoms have previously been ameliorated with decreased oral intake, but that has not provided any relief with her current episode. Of note, the patient reports that she had sinus congestion over the past week, which she attributes to allergies. She took Aleeve cold and sinus to relief of her symptoms. She has otherwise been in her usual state of health and had her last apheresis procedure performed approximately one month ago. Evaluation in the ED was significant for a leukocytosis of 16.1, lipase of 68, and triglycerides [id number]. CT demonstrated findings consistent with acute pancreatitis. The patient denies any significant changes in her diet. She reports good compliance with her procedures. She denies fevers and chills. She was admitted for pain control and further management. Past Medical History: Past Medical History: Diagnosis [...] of left power flow port 05/11/2019 ??? [place] ESOPHAGOGASTRODUODENOSCOPY TRANSORAL DIAGNOSTIC N/A 03/08/2018 ESOPHAGOGASTRODUODENOSCOPY performed by Ceasar Vega MD at [facility] Prior to Admission Medications: Prior to Admission Medications Prescriptions Last Dose Informant Patient Reported? Taking? LORazepam (ATIVAN) 1 mg tablet Yes No Sig: Take 1 mg by mouth 2 times daily as needed for Anxiety . citalopram (CeleXA) 40 mg tablet Yes No Sig: Take 40 mg by mouth daily at bedtime. empagliflozin (JARDIANCE) 25 mg tablet No No Sig: Take 1 tablet by mouth early in the morning. fenofibrate (LOFIBRA) 160 mg Oral Tab No No Sig: Take 1 Tab by mouth daily. flash glucose sensor (FreeStyle Raymundo 14 Day Sensor) Kit No No Si sensor every 14 days insulin aspart (NovoLOG) 100 unit/mL injection Yes No Sig: Inject 1 Units by subcutaneous injection. 25 units with each meal insulin glargine (LANTUS) 100 unit/mL injection No No Si units in the AM levothyroxine 200 mcg tablet No No Sig: Take 1 Tablet by mouth daily without food in the morning 30 minutes before eating anything. metFORMIN (GLUCOPHAGE) 500 mg tablet No No [...] alcohol or use drugs. Review of Systems: Review of Systems Constitutional: Negative for chills, fever and weight loss. HENT: Positive for congestion and nosebleeds. Eyes: Negative for blurred vision and double vision. Respiratory: Negative for cough, hemoptysis, sputum production, shortness of breath and wheezing. Cardiovascular: Negative for chest pain, palpitations, orthopnea and claudication. Gastrointestinal: Positive for abdominal pain, nausea and vomiting. Negative for blood in stool, constipation, diarrhea and melena. Genitourinary: Negative for dysuria, frequency and urgency. Musculoskeletal: Negative for back pain, joint pain, myalgias and neck pain. Skin: Negative for itching and rash. Neurological: Negative for dizziness, tingling, tremors and headaches. Endo/Heme/Allergies: Negative for environmental allergies. Does not bruise/bleed easily. Psychiatric/Behavioral: Negative for depression, substance abuse and suicidal ideas. Objective: Body mass index is 28.29 kg/m??. BP (!) 130/106 (BP Location: Right arm, Patient Position (BP): Sitting) Pulse 95 Temp 98.5 ??F (36.9 ??C) (Oral) Resp 20 Ht 5' 5 (1.651 m) Wt 77.1 kg (170 lb) SpO2 96% BMI 28.29 kg/m??, Temp (24hrs), Av.7 ??F (37.1 ??C), Min:98.5 ??F (36.9 ??C), Max:98.9 ??F (37.2 ??C) Physical Exam Constitutional: General: She is in acute distress. Appearance: She is ill-appearing. HENT: Head: Normocephalic and atraumatic. Mouth/Throat: Mouth: Mucous membranes are moist. Pharynx: Oropharynx is clear. Eyes: Extraocular Movements: Extraocular movements intact. Pupils: Pupils are equal, round, and reactive to light. Cardiovascular: Rate and Rhythm: Regular rhythm. Tachycardia present. Heart sounds: No murmur. Pulmonary: Effort: Pulmonary effort is normal. No respiratory distress. Breath sounds: Normal breath sounds. Abdominal: General: Abdomen is flat. Bowel sounds are normal. There is no distension. Palpations: Abdomen is soft. Tenderness: There is abdominal tenderness in the right upper quadrant, right lower quadrant and epigastric area. Hernia: No hernia is present. Skin: General: Skin is warm and dry. Neurological: General: No focal deficit present. Mental Status: She is alert. Cranial Nerves: No cranial nerve deficit. Motor: No weakness. Psychiatric: Mood and Affect: Mood normal. Mood is not anxious or depressed. Behavior: Behavior normal. Date Base: CBC: Recent Labs 02/15/201820 WBC 16.1* HGB 12.5 HCT 41.5 PLT 320 MCV 89.1 Recent Labs 02/15/20 1821 NA 132* K 4.5 CL 92* CO2 22 ANIONGAP 18* CA 9.2 GLUCOSE 220* BUN 5* CREAT 0.41* Results for orders placed or performed during the hospital encounter of 02/15/20 (from the past 24 hour(s)) CBC WITH DIFFERENTIAL Result Value Ref Range WBC 16.1 (H) 4.0 - 9.8 K/uL RBC 4.12 3.90 - 4.90 M/uL HEMOGLOBIN 12.5 11.8 - 14.8 g/dL HEMATOCRIT 41.5 35.5 - 44.0 % MCV 89.1 82.0 - 99.0 fL MCH 26.8 (L) 27.2 - 32.6 pg MCHC 30.1 (L) 31.5 - 35.5 g/dL RDW 14.2 11.5 - 14.5 % RDW-STDEV 45.3 37.1 - 48.7 fL PLATELETS 320 140 - 350 K/uL MPV 10.2 9.3 - 12.4 fL NEUTROPHILS 79 % LYMPHOCYTES 11 % MONOCYTES 9 % EOSINOPHILS 1 % BASOPHILS 0 % IMMATURE GRANULOCYTES 1 % NEUTROPHIL ABSOLUTE 12.68 (H) 1.90 - 7.00 K/uL LYMPHOCYTE ABSOLUTE 1.71 0.70 - 4.50 K/uL MONOCYTE ABSOLUTE 1.43 (H) 0.10 - 1.30 K/uL EOSINOPHIL ABSOLUTE 0.13 0.00 - 0.70 K/uL BASOPHILS ABSOLUTE 0.05 0.00 - 0.20 K/uL IMMATURE GRANULOCYTES ABSOLUTE 0.11 (H) 0.00 - 0.03 K/uL COMPREHENSIVE METABOLIC PANEL Result Value Ref Range SODIUM 132 (L) 136 - 145 mmol/L POTASSIUM 4.5 3.5 - 5.0 mmol/L CHLORIDE 92 (L) 98 - 107 mmol/L CO2 22 22 - 29 mmol/L CALCIUM 9.2 8.6 - 10.2 mg/dL BUN 5 (L) 6 - 20 mg/dL CREATININE 0.41 (L) 0.51 - 0.95 mg/dL GLUCOSE 220 (H) 74 - 99 mg/dL TOTAL PROTEIN 7.6 6.7 - 8.6 g/dL ALBUMIN 4.2 3.5 - 5.2 g/dL BILIRUBIN TOTAL 0.3 0.3 - 1.2 mg/dL ALKALINE PHOSPHATASE 95 35 - 104 U/L AST ALT GFR >60 >=60 mL/min/1.73 sq meter GFR, >60 >=60 mL/min/1.73 sq meter ANION GAP 18 (H) 8 - 16 mmol/L LIPASE Result Value Ref Range LIPASE 68 (H) 13 - 60 U/L MANUAL DIFFERENTIAL Result Value Ref Range SEGMENTED NEUTROPHILS 82 % LYMPHOCYTES RELATIVE 13 % MONOCYTES RELATIVE 3 % EOSINOPHILS RELATIVE 1 % BASOPHILS RELATIVE 2 % NEUTROPHILS ABSOLUTE COUNT 13.50 (H) 1.90 - 7.00 K/uL LYMPHOCYTES ABSOLUTE 2.10 0.70 - 4.50 K/uL MONOCYTES ABSOLUTE 0.45 0.10 - 1.30 K/uL EOSINOPHILS ABSOLUTE 0.15 0.00 - 0.70 K/uL BASOPHILS ABSOLUTE 0.30 (H) 0.00 - 0.20 K/uL TOTAL CELLS COUNTED IN DIFF 110 RBC MORPHOLOGY abnormal PLATELET EST. Consistent w Count ANISOCYTOSIS 1+ /hpf POIKILOCYTES 1+ /hpf TRIGLYCERIDE Result Value Ref Range TRIGLYCERIDE >4,425 (H) <150 mg/dL URINALYSIS WITH REFLEX MICROSCOPIC Result Value Ref Range COLOR UA Yellow Pale to Dark Yellow CLARITY UA Slightly Cloudy (A) Clear SPECIFIC GRAVITY UA 1.018 1.003 - 1.035 PH UA 6.0 5.0 - 8.0 LEUKOCYTE ESTERASE UA Negative Negative NITRITE UA Negative Negative PROTEIN UA 2+ (A) Negative GLUCOSE UA 2+ (A) Negative KETONES UA Trace (A) Negative UROBILINOGEN UA Normal <2.0 mg/dL BILIRUBIN UA Negative Negative BLOOD UA 1+ (A) Negative WBC UA 0-2 0 - 2 /hpf RBC UA 6-10 (A) 0 - 2 /hpf BACTERIA UA 1+ (A) Negative /hpf EPITHELIAL CELLS, URINE 11-25 (A) 0 - 5 /hpf POC GLUCOSE Result Value Ref Range POC GLUCOSE 192 (H) 74 - 99 mg/dL CAREER CENTER ADVISOR NAME JOSE GUADALUPE CONLEY , Imaging Results CT ABDOMEN PELVIS W CONTRAST (Final result) Result time 02/15/20 21:36:54 Final result by Jess Foster MD (02/15/20 21:36:54) Impression: IMPRESSION: 1. Acute pancreatitis. Nonspecific 9 mm hypodense lesion in the distal aspect of the pancreas. 2. Right adnexal cyst measuring up to 4.9 cm, unchanged from the prior CT. INCIDENTAL FINDINGS: None. The examination was performed with the adjustment of mA according to the patient size and/or the use of Iterative 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 DICTATION LOCATION: Location [address] [facility] Narrative: Exam: CT abdomen and pelvis with contrast Exam date: 02/15/2020 INDICATION: Pancreatitis. COMPARISON: 04/12/2019 CT FINDINGS: No aggressive osseous lesion. Cardiac silhouette within normal limits. Lung base atelectasis. Unremarkable liver, gallbladder and spleen. Peripancreatic fat stranding. There is a 9 mm hypodense lesion in the distal aspect of the pancreas, new from the prior CT. Unremarkable adrenal glands. The kidneys are within normal limits. Atherosclerotic plaque within the aorta and branch vessels. No bowel obstruction. The appendix is not identified. Unremarkable urinary bladder. Bilateral ovarian follicular changes. Prominent right adnexal cyst measuring up to 4.9 cm x 4.2 cm, unchanged from the prior CT. , Echocardiogram: No results found for this or any previous visit., Lab Results Component Value Date/Time ALT 02/15/2020 06:21 PM Comment: Hemolysis present. Result may be falsely elevated. Cleared of chylomicrons. Unable to evaluate due to lipemia. AST 02/15/2020 06:21 PM Comment: Hemolysis present. Result may be falsely elevated. Cleared of chylomicrons. Unable to evaluate due to lipemia. ALKPHOS 95 02/15/2020 06:21 PM , No results for input(s): INR, APTT in the last 72 hours., No results for input(s): BNPPRO in the last 72 hours. and Assessment and Plan: Ms. 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 1. Acute Pancreatitis - Likely secondary to hypertriglyceridemia in the setting of known chylomicronemia. Differential diagnosis includes gallstones, ethanol, and tobacco use. - Insulin drip started - IVF - Will plan to admit to TCU - BMP q4h; continue close monitoring of potassium and glucose levels - Follow up repeat triglycerides q12h - Pain control with PRN Dilaudid and [place] 2. History of Chylomicronemia - Triglycerides 4425 - Patient receives monthly apheresis by Dr. Arteaga (pathology) and Dr. Gates (endocrinology),with which she reports good compliance. - Pathology and endocrinology will need to be consulted in the morning - Patient will likely require apheresis during this hospitalization. 3. Leukocytosis - WBC elevated to 16.1 - Likely secondary to acute pancreatitis - No concern for necrotizing infection at this time on imaging - Patient is afebrile and denies fevers or chills; UA shows low concern for infection 4. History of DM2 - Will hold home medications - On insulin drip at this time - Will transition to subcutaneous insulin as appropriate 5. History of Hypothyroidism - Continue INFORMATION ASSURANCE MANAGER Levothyroxine when able to tolerate PO 6. History of GERD - Continue INFORMATION ASSURANCE MANAGER PPI when able to tolerate PO 7. History of Tobacco Use - Patient currently smokes about 0.5 PPD - Counseled on smoking cessation DVT PRX:Enoxaparin Indwelling Lines/Devices: Peripheral IV Pettit: absent; reason: N/A Patient's activity prior to admission: independent Patient lives with their family in a single family home PT and OT: Yes Diet: NPO Nutritional Supplementation: N/A Code Status: Full Code Current Planned Disposition - Home which I anticipate will be completed 2-3 days I discussed the assessment of plan for the above patient with Matteo Brown MD Brock J Miller, MD 02/16/2020 12:10 AM. Plan discussed with the patient, questions answered; patient agrees with current plan. More than 70 minutes were spent in the care of this patient today DKA pathway initiated This note may have been transcribed using [employer] speaking computerized voice recognition without a human western felt hat blocker. This report may or may not have been adjusted for typographical, grammatical and syntax errors. This patient is covered by Internal Medicine residents To reach Internal Medicine covered patients: Saturday-Saturday 7 AM- 7 PM: Please contact the resident via secure chat. The resident responsible for the patient will be on the Treatment Team listed as Resident If no response you may call the refrigeration specialist editing intern at zone phone [phone]. If no response you may call the refrigeration specialist senior resident at zone phone [phone] If no response please contact the attending of record via secure chat. 7 PM to 7 AM: The long call/night float resident should be listed as Resident on the treatment team and can be reached via secure chat. If no response you may call the refrigeration specialist editing intern at zone phone [phone]. If no response you may call the refrigeration specialist senior resident at zone phone [phone] If no response please contact the Rapid [...] secure chat. If no response call the refrigeration specialist editing intern at zone phone [phone]. If no response you may call the refrigeration specialist senior resident at zone phone [phone] If no response please contact the Rapid Access Hospitalist via secure chat Associated attestation - Loki Vences MD - 02/16/2020 1:41 AM CDT [facility] Adult Hospitalist Attending Note I reviewed the medical record including the resident???s note (available as hyperlink below) on 02/16/2020. I reviewed and confirmed the history, physical findings, laboratory findings, assessment and plan with the resident on rounds. I also performed the critical or santos portion(s) of the service as documented below, and was directly involved in the management of the patient and supervised the care provided. I have reviewed the physical exam findings in the resident???s note; my notable physical exam findings include: Gen NAD, tearful HEENT CV Resp PERRL, EOMI, NC/AT S1S2+, RRR CTAB Abd Soft, ND, significant epigastric pain, normal BS MSK Normal tone Neuro CN grossly intact Ext No edema Skin Warm/dry Brief HPI: 44 yo F with known chylomicronemia (monthly apheresis), recurrent hypertriglyceridemia induced pancreatitis, tobacco abuse, DM who presented with epigastric pain with N/V x 1 day. TG in the ED found to be>4000. Last apheresis was 01/[address] Arteaga. CTAP notable for acute pancreatitis. Patient denies Etoh, fevers, chills, diarrhea, constipation. She does report having brief sinus congestion last week that she relates to her seasonal allergies that has resolved. She denies anyother changes to her health and has been compliant on her medications. Notable amendments/additions to the assessment and plan include: Principal Problem: Acute on chronic pancreatitis- 2/2 chylomicronemia/hyperTG - NPO/sips - D5NS IVF - insulin gtt for hypertriglyceridemia. TG levels Q8-12H. Stop gtt when TG<500 - BMP Q4 - pain control PRN - endocrinology/apheresis team consult in AM Chylomicronemia syndrome -mgmt as above, consult Endocrinology in AM. Follows with Dr. Gates as outpatient. Depression with anxiety- mining captain celexa Tobacco use- cessation advised, patch if needed Type 2 diabetes mellitus without complication, with long-term current use of insulin - hold mining captain lantus/novolog, monitor BG on insulin gtt. Mildly elevated gap, no ketones obtained prior to gtt. Will monitor Q1 BG and Q4BMP Acquired hypothyroidism - mining captain synthroid I reviewed the resident note and agree with the documented findings and plan of care. I have personally reviewed the ER documentation, admission labs, and admission imaging studies today. Additionally, I have personally reviewed previous hospital documentation, office notes, laboratory data, and imaging studies relevant to this encounter. More than 70 minutes were spent in the care of this patient today; more than 50% was spent in discussion of expected course of disease, discussion of prognosis, discharge planning, coordination of care and discussion of lab and test results. This note was created using dictation software, as such there may be word substitutions or errors. Every effort was taken to correct grammatical errors. Loki Vences MD [facility] Hospitalist For patients admitted by myself between 9pm-7am, please contact me via [employer] secure message with anyquestions or concerns. Outside above hours, the attending has changed, contact attending listed in HeyBubble or locate patient on the hospitalist e-list and contact the current attending. documented in this encounter Consult Notes * Last Grijalva MD - 02/26/2020 2:31 PM CDTAssociated Order(s): IP CONSULT TO GI Inpatient GI Consultation Note Patient: Casandra Doss / 44 y.o. / female : 1975 Date: 02/26/2020 CSN: [id number] Referring Physician:No ref. provider found PCP: Guerrero Middleton PA-C Reason for Consult: hypertriglyceridemia pancreatitis History of Present Illness: Casandra Doss is a 44 y.o. female we are asked to see regarding hypertriglyceridemia pancreatitis, abdominal pain, and tube feeds. She has a PMH of anxiety, chylomicronemia syndrome, depression, Diabetes, hypertriglyceridemia, PCOS, pancreatitis, hypothyroidism. Pt reported history: She first reports pancreatitis in 2017 from high trigs. She started out at [facility], but she was told there was nothing further they could do and she was referred to [facility]. She spent most of 2017 in and out of the hospital. 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 She believes she had an EUS at [facility]. She denies having cyst drainage because she was told it was too large and taking up her whole pancreas. 2017 she was hospitalized once a month. States here at [facility]. 2019 she had a port placed of plasmapheresis and this got her trigs under control and shw as doing fine. She would have little bouts of pancreatitis pain at home, but she would go on a clear liquid diet for a couple of days and the pain would resolve. He trigs would go up and down, but not to the 4,000 range like it did this time. Her pain started epigastric radiating to LUQ and her back on 02/12. She tried to go on a clear liquid diet again, but was still having pain by Saturday so she came to the hospital. CT scan 02/14 showed Acute pancreatitis with 9mm hypodense lesion in the distal aspect o pancreas and an unchanged 4.9cm right adnexal cyst. She also reports going to [facility] in 2019 and being told there was nothing they could do that was not already being done in [facility]. She was told her pancreas is like a 2 y/o, it will act up w/o reason at certain times. Saturday she tried low fat diet. She got breakfast down, but had pain with lunch. She was taken back down to a clear liquid diet. She is eating clear liquids and tolerating. A NJ tube was placed under fluoroscopy yesterday. She is tolerating jejunal feeds at 20ml/hr currently. She c/o left sided painwith a deep breath. She c/o the pain feeling like a pressure and burning all the time with intermitt ent stabbing pains. She is having BM's w/o blood or melena. She has never tried Lyrica or TCA before. She has tried Bentyl in the past and this did help. Per records in chart: 02/2018 EGD for upper abdominal pain: granula mucosa in the esophagus, red stomach, red duodenum. Pathology with mild gastritis. H. Pylori negative. No endoscopic records under care everywhere. No Records from [facility] 11/2018 GI evaluation from [facility] office visit. Listed under care everywhere. Seen for pancreatitis secondary to hypertriglyceridemia amd C/o severe abdominal pain. The following is their evaluation. ASSESSMENT / PLAN Ms. Doss is a very pleasant 43 y.o. female who is being seen in clinic today for pancreatitis secondary to hypertriglyceridemia. #1 History of necrotizing pancreatitis due to hypertriglyceridemia #2 Chronic epigastric pain #3 Insulin dependent diabetes mellitus #4 Nicotine dependence Ms. Doss presents for evaluation of pancreatitis secondary to hypertriglyceridemia. She has required monthly hospitalizations for control of her symptoms which include severe abdominal pain. Over the last 2 years, she has struggled with constant epigastric pain as well. It is unclear whether her c hronic pain is secondary to episodes of hypertriglyceridemia as her pain improves with plasmapheresis and insulin treatment in the hospital. Alternatively, she may have changes suggestive of chronic pancreatitis although we do not have any recent imaging her pancreas. She may have also developed some visceral hypersensitivity after her first episode of necrotizing pancreatitis and subsequent complications with hypertriglyceridemia. At this time, we will obtain vitamin A and D levels. These are fat soluble vitamins and would be expected to be low if there was ongoing malabsorption. For the time being, we do not think she needs Creon treatment especially as her weight has been stable and she does not have ongoing diarrhea. We will also take a structural look at the pancreas with an MRCP. She will plan to get this in 3 months when she returns for endocrinology follow-up. Given her ongoing pain, it may be reasonable to trial the addition of the acetaminophen or Bentyl. She is not ready for smoking cessation at this time and we will continue to discuss this in the future. The patient was in full understanding of the plan outlined above. The case was staffed with Dr. Hickey. DC summary for admission's here 04/2019. Admit. Came in for upper abdominal pain, nausea, vomiting. Her lipase was normal. Recurrentpancreatitis was suspected. Her trigs were 1300ml. She felt better after pheresis. 03/2019 Admit. Acute on chronic pancreatitis. 01/2019. Admit for abdomina pain. recurrent pancreatitis suspected. 10/2018. Admit abdominal pain 09/2018. Admit epigastric pain, but no evidence of pancreatitis 07/2018. Admit abdominal pain. 06/2018. Admit with abdominal pain Further admits in 2018 and 2017 for abdominal pain. All reportedly improved with plasmapheresis. CT 02/06/20. Acute pancreatitis. 9mm lesion distal pancreas. Adnexal cyst CT 03/2019. Acute interstitial edematous pancreatitis. Adnexal cyst US. 07/2018. Normal gallbladder. No stones. CTA 07/2018. Adnexal cyst, right. No peripancreatic inflammation CT 03/2018 Stringy infiltratio of the fat surrounding the pancreatic tail with mild amount of adjacent abdomen. In appropriate setting acute pancreatitis. CT 02/2018. No pancreatitis She was seen by our severe in November and Feb 2018. Allergies Allergen Reactions ??? Green Pepper Hives ??? Adhesive Unknown ??? Aspartame Headache All artificial sweeteners. ??? Adhesive Tape-Silicones Hives Medications Prior to Admission Medication Sig Dispense Refill Last Dose ??? empagliflozin (JARDIANCE) 25 mg tablet Take 1 tablet by mouth early in the morning. 30 Tablet 6 ??? varenicline (Chantix) 0.5 mg Tablet Take 1 Tablet (0.5 mg) by mouth 2 times daily. 60 Tablet 0 ??? insulin glargine (LANTUS) 100 unit/mL injection 35 units in the AM 30 mL 1 ??? flash glucose sensor (FreeStyle Raymundo 14 Day Sensor) Kit 1 sensor every [...] Tab by mouth daily. 90 Tab 0 Past Medical History: Diagnosis Date ??? Anxiety [...] of left power flow port 05/11/2019 ??? MO ESOPHAGOGASTRODUODENOSCOPY TRANSORAL DIAGNOSTIC N/A 03/08/2018 ESOPHAGOGASTRODUODENOSCOPY performed by Ceasar Vega MD at [facility] Family History Problem Relation [...] Never Binge frequency: Never Review of Systems: Ten of fourteen systems were reviewed. Pertinent positives are noted in the HPI. Gen: Denies fever/chills or changes in weight ENT: Denies changes in vision, rhinitis CV: Denies CP Pulm: Denies SOB GI: See HPI MS: Denies arthralgais, myalgias Derm: Denies rashes or lesions. : Denies dysuria or hematuria Physical Exam: BP 114/65 (BP Location: Left arm, Patient Position (BP): Supine) Pulse 72 Temp 98.3 ??F (36.8 ??C) (Oral) Resp 16 Ht 5' 5 (1.651 m) Wt 81.8 kg (180 lb 6.4 oz) SpO2 100% No BMI 30.02 kg/m?? Intake/Output Summary (Last 24 hours) at 02/26/2020 1431 Last data filed at 02/26/2020 0900 Gross per 24 hour Intake 1411 ml Output 5 ml Net 1406 ml General: WD/WN. In NAD HEENT: , sclera anicteric, conjunctiva pink, mucous membranes moist, oropharynx clear, hearing grossly normal Neck: supple, trachea midline Lungs: normal respiratory effort, CTAB, without wheezes, crackles or rhonchi Heart: S1S2, RRR, without murmur or gallop Abdomen: ND, +BS, soft, LUQ tenderness w/o rebound or guarding, tenderness not as pronounced when press with stethescope, No HSM or palpable masses Skin: no jaundice, obvious rashes or lesions, warm to palpation Extremities: no cyanosis or edema, Neurologic/Psych: A&Ox3, grossly nonfocal, normal mood/affect Pertinent Labs: Lab Results Component Value Date/Time WBC 7.1 02/24/2020 02:36 PM HEMOGLOBIN 12.8 02/24/2020 02:36 PM HEMATOCRIT 39.3 02/24/2020 02:36 PM PLATELETS 365 (H) 02/24/2020 02:36 PM MCV 89.5 02/24/2020 02:36 PM Lab Results Component Value Date/Time SODIUM 142 02/26/2020 07:11 AM POTASSIUM 3.3 (L) 02/26/2020 07:11 AM CHLORIDE 106 02/26/2020 07:11 AM CO2 27 02/26/2020 07:11 AM CALCIUM 8.6 02/26/2020 07:11 AM BUN 4 (L) 02/26/2020 07:11 AM CREATININE 0.52 02/26/2020 07:11 AM GLUCOSE 178 (H) 02/26/2020 07:11 AM TOTAL PROTEIN 6.3 (L) 02/16/2020 09:20 AM ALBUMIN 3.6 02/16/2020 09:20 AM BILIRUBIN TOTAL <0.2 (L) 02/16/2020 09:20 AM ALKALINE PHOSPHATASE 81 02/16/2020 09:20 AM AST 02/16/2020 09:20 AM Comment: Unable to result due to lipemia. Unable to evaluate due to lipemia. ALT 02/16/2020 09:20 AM Comment: Unable to result due to lipemia. Unable to evaluate due to lipemia. ANION GAP 9 02/26/2020 07:11 AM Lab Results Component Value Date/Time INR 1.0 05/24/2019 10:30 AM INR 1.1 11/14/2018 09:40 AM INR 1.0 11/13/2018 10:29 AM PROTIME 12.5 (L) 05/24/2019 10:30 AM PROTIME 14.1 11/14/2018 09:40 AM PROTIME 13.0 11/13/2018 10:29 AM Pertinent Imaging: Exam: CT abdomen and pelvis with contrast ?? Exam date: 02/15/2020 ?? INDICATION: Pancreatitis. ?? COMPARISON: 04/12/2019 CT ?? FINDINGS: No aggressive osseous lesion. Cardiac silhouette within normal limits. Lung base atelectasis. ?? Unremarkable liver, gallbladder and spleen. Peripancreatic fat stranding. There is a 9 mm hypodense lesion in the distal aspect of the pancreas, new from the prior CT. ?? Unremarkable adrenal glands. The kidneys are within normal limits. Atherosclerotic plaque within the aorta and branch vessels. No bowel obstruction. The appendix is not identified. Unremarkable urinary bladder. Bilateral ovarian follicular changes. Prominent right adnexal cyst measuring up to 4.9 cm x 4.2 cm, unchanged from the prior CT. ? IMPRESSION: 1. Acute pancreatitis. Nonspecific 9 mm hypodense lesion in the distal aspect of the pancreas. 2. Right adnexal cyst measuring up to 4.9 cm, unchanged from the prior CT. ? Impression/Plan: 1. Recurrent acute pancreatitis secondary to hypertriglyceridemia. -No evidence on CT scans to suggest chronic pancreatitis. No wt loss or severe diarrhea to suggest pancreatic insufficiency. She reports EUS at [facility], but do not see record of this. She did have an EGDhere in 2018. An EUS would be helpful as an outpatient to assess for any chronic pancreatitis changes. Chart reviewed and repeated admits for abdominal pain, typically gets better after plasmapheresis. Lipase has historically been normal. Intermittently CT will show acute pancreatitis, but other times pain is reported and there is no changes of pancreatitis. Low fat diet was attempted last Saturdayand she did not tolerate. NJ placed yesterday with TF going today. She is tolerating clear liquids.CT scan done 02/14/[address] scan does not seem to correlate with the degree of pain reported and need for enteral tube feeds. Would not recommend a more permanent G tube for her. TPN is also not a good option. Repeat CT scan to assess for further progressive inflammation or large pseudocyst formation. If the CT scan shows improvement. Would advance her to full liquid then low fat diet. Suspect she has underlying functional pain/visceral hypersensitivity. She reports improvement with Bentyl in the past. Start Nortriptyline 25mg at bedtime and Bentyl 20mg TID. 2. Type 2 DM, insulin dependent 3. Hypothyroidism 4. Hypertriglyceridemia. - Endocrine following. I have discussed this case with Dr. Grijalva. Thank you very much for this consultation. Hedy Mullins PA-C [facility] Gastroenterology CC: No ref. provider found , Guerrero Middleton PA-C I have personally seen and examined the patient. I have reviewed the note as entered and agree withthe assessment and plan with any exceptions, if any, as noted. I also performed the critical or keyportion(s) of the service as documented, and was directly involved in the management of the patientand supervised the care provided. Abdomen soft, mild-moderate tenderness. Hypertriglyceridemic pancreatitis. Repeat CT to exclude complication. If OK, try to taper narcotics and advance diet. Try low dose tricyclic antidepressant for visceral hypersensitivity. Dicyclomine ac. Control diabetes mellitus, replete thyroid. Pending response, could consider trial of pancreatic enzyme supplement. Last Grijalva MD [facility] Digestive Disease Pager: [phone] * Afua John, ARMAND - 02/22/2020 8:40 AM CDTAssociated Order(s): IP CONSULT TO NUTRITION SERVICES Images from the original note were not included. CLINICAL DIETITIAN PROGRESS NOTE [facility] Follow Up Nutrition Assessment Consult received for TPN/PPN Pt attempted to eat, however, pt experienced pain and nausea with advancing of diet. Diet changed to CL. Pt states she still had pain with CL diet. Pt has had very little to eat since adm, 02/14. NFPE indicates mild fat/muscle loss. Pt meets criteria for acute moderate PCM. Assessment: Recent Labs 02/20/20 0643 02/21/20 0756 GLUCOSE 133* 124* BUN 3* 5* CREAT 0.53 0.46* GFR >60 >60 NA 140 141 K 3.3* 3.8 CL 107 106 CO2 25 23 ANIONGAP 8 12 CA 8.3* 8.5* TRIGLYCERIDE 341* 319* POC GLU.-79-177 Pert Meds.lipitor, Lofibra, lantus, humalog, synthroid, zofran, protonix, senna Skin: Chin Score: 20 (02/21/202221) Anthropometrics: Height: 5' 5 (165.1 cm) (02/15/20 1656) Weight: 82.5 kg (181 lb 14.4 oz) (02/22/20 0510) Body massindex is 30.27 kg/m??. Last Bowel Movement (mm/dd/yyyy): 02/21/20 (02/21/202221) D: Acute/ Nutrition Diagnosis: Moderate protein-calorie malnutrition (02/22/20899) : Malnutritionr/t Alteration in GI tract structure/function as evidenced by: Percentage of Energy: < 50% for > or equal to 5 days (severe-acute) (02/22/20899) Percentage of Weight Loss: Unable to assess(adm wt was stated) (02/22/20899) Subcutaneous Fat Assessment: Orbital: Flattened fat pads but not depressed (mild) (02/22/20899) Facial cheeks (buccal pads): Slightly depressed inward (mild) (02/22/20899) Biceps and triceps: Ample or thick fold of fat tissue between fingers (no findings) (02/22/20899) Ribs - lower back, mid axillary line: Chest is full, round, ribs do not show (no findings) (02/22/20899) Buttocks (infant/child): Unable to assess (02/22/20899) Subcutaneous Fat Loss Assessment: Mild fat loss (02/22/20899) Muscle Wasting Assessment: Temporal: See/feel well defined muscles (no findings) (02/22/20899) Clavicle: May be visible but not prominent (no findings) (02/22/20899) Shoulder (deltoid muscle): Rounded, curved at junction between neck and shoulder, and at shoulder joint. Able to grasp muscle tissue at shoulder joint (no findings) (02/22/20899) Scapula: Unable to assess (02/22/20899) Interosseous: Muscle bulges (no findings) (02/22/20899) Thigh (quadriceps muscle): Flattened thigh appearance but no depressions (mild) (02/22/20899) Knee: Slight appearance of knee bone, muscle appearsflat (mild) (02/22/20899) Calf (gastrocnemius muscle): Slight flattening to muscle but remains firm (mild) (02/22/20899) Muscle Wasting Assessment: Mild (02/22/20899) And any noted nutrition risks from SGA questions. Nutrition Prescription: DIET CLEAR LIQUID Intake Points: 30 points (02/21/202133) Food/Meal: Dinner (02/21/202133) Diet/Feeding Tolerance: unable to eat (02/21/202221) Nutrition intake is is meeting less than 50% of recommended nutritional needs D: Same/ Inadequate po intake I:Nutrition Intervention: DIET CLEAR LIQUID Suggest place PICC for TPN. PPN is limited by osmolality, lipids do not affect osmolality and usually are used for a caloric source in PPN but pt will not be a candidate for this d/t hypertriglyceridemia. Suggest an initial TPN solution of 85 ml/hr, 100g AA, 250g dextrose, 10g lipids to provide 1350 calories, 1.8g/kg IBW, GIR-2.1. No new labs today. Suggest 45 mEq NaCl 35 mEq KCL 30 mEq Na acetate 15 mmol Kphos 10 mEq Ca gluconate 10 mEq Mg SO4 MVI and trace elements Monitor BMP, Mg, Phos and triglycerides daily. Pt has been without significant nutrition and is at risk of Refeeding Syndrome. Will gradually increase TPN to GIR of 3.0 and attempt to provide 20g lipids. Goal: Tolerance and meeting nutrition goal of Enteral/ Parental nutrition M/E: 1. Continue to monitor: Anthropometrics, Digestive, Skin, and Biochemical data 2. Follow up every 1-4 days and as needed. * Eliane Rosado MD - 02/16/2020 4:11 PM CDTAssociated Order(s): IP CONSULT TO ENDOCRINOLOGY Pt seen in consultation for opinion regarding hypertriglyceridemia. HPI: Casandra is a 44 y/o female with familial hypertriglyceridemia , recurrent pancreatitis , dm2, hypothyroidism admitted yesterday due to abdominal pain 2/2 acute on chronic pancreatitis. Pt has been getting plasma pheresis as outpatient every month for last 8 months . Last plasma pheresis before admission was end of dec 2019. Pt says she had been compliant with diet, medication and no etoh use. Started having abdominal pain on Saturday and got worse- admitted yesterday and triglycerides > 4000- had plasma pheresis today Still c/o abdominal pain, no vomiting. Is NPO- last MB- yesterday. Takes 35 units of basaglar , metformin and jardiance as outpatient for dm2- no a1c > 1 yr. fbg- 160-180's per pt. Pt is on 200 mcg of levothyroxine daily- not missing doses per pt. Allergies Allergen Reactions ??? Green Pepper Hives ??? Adhesive Unknown ??? Aspartame Headache All artificial sweeteners. ??? Adhesive Tape-Silicones Hives Current Facility-Administered Medications Medication Dose Route Frequency Provider Last Rate Last Dose ??? [COMPLETED] ondansetron (ZOFRAN) 4 mg/2 mL injection 4 mg 4 mg IV ONCE Cooper Kahn MD4 mg at 02/16/20 0151 ??? levothyroxine (SYNTHROID) tablet 200 mcg 200 mcg Oral Daily EARLY Loki Vences MD 200 mcg at 02/16/20 1112 ??? citalopram (CeleXA) tablet 40 mg 40 mg Oral Daily BEDTIME Loki Vences MD ??? [COMPLETED] HYDROmorphone (DILAUDID) 2 mg/mL injection 1 mg 1 mg IV ONCE Kortney Ray DO 1 mgat 02/16/20 0804 ??? oxyCODONE (ROXICODONE) tablet 10 mg 10 mg Oral q 6 hour Kortney Ray, DO 10 mg at 02/16/20 1152 ??? acetaminophen (TYLENOL) tablet 1,000 mg 1,000 mg Oral q 8 hour NuspKortney alfonso E, DO 1,000 mg at 02/16/20 1330 ??? HYDROmorphone (DILAUDID) 2 mg/mL injection 0.5 mg 0.5 mg IV q 2 hour PRN Kortney Ray, DO 0.5 mg at 02/16/20 1330 ??? [COMPLETED] calcium GLUCONATE 2,000 mg in sodium chloride 0.9% 120 mL IVPB 2,000 mg IV Intra-Proc Once Alize Arteaga MD Stopped at 02/16/20 1125 ??? [COMPLETED] heparin, porcine lock flush (pf) 100 unit/mL injection 500 Units 500 Units IV ONCE Alize Arteaga MD 500 Units at 02/16/20 1322 ??? [COMPLETED] heparin, porcine lock flush (pf) 100 unit/mL injection 500 Units 500 Units IV ONCE Alize Arteaga MD 500 Units at 02/16/20 1310 ??? [COMPLETED] heparin, porcine (pf) 10 unit/mL IV syringe 20 Units 20 Units IV ONCE Alize Arteaga MD 20 Units at 02/16/20 1322 ??? [COMPLETED] alteplase (CATHFLO ACTIVASE) 2 mg injection 2 mg 2 mg Dwell ONCE Alize Arteaga MD 2 mg at 02/16/20 1118 And ??? [COMPLETED] water sterile injection See Admin Instructions ONCE Alize Arteaga MD 10 mL at1 1118 ??? fenofibrate (LOFIBRA) tablet 160 mg 160 mg Oral Daily Kortney Ray, DO 160 mg at 02/16/20 1519 ??? pantoprazole (PROTONIX) tablet 40 mg 40 mg Oral BID Kortney Ray, DO 40 mg at 02/16/20 1519 ??? atorvastatin (LIPITOR) tablet 80 mg 80 mg Oral Daily BEDTIME Kortney Ray, DO ??? [START ON 02/17/2020] calcium GLUCONATE 2,000 mg in sodium chloride 0.9% 120 mL IVPB 2,000 mg IV Intra-Proc Once Alize Arteaga MD ??? [START ON 02/17/2020] heparin, porcine lock flush (pf) 100 unit/mL injection 500 Units 500 Units IV ONCE Alize Arteaga MD ??? [START ON 02/17/2020] heparin, porcine lock flush (pf) 100 unit/mL injection 500 Units 500 Units IV ONCE Alize Arteaga MD ??? [START ON 02/17/2020] heparin, porcine (pf) 10 unit/mL IV syringe 20 Units 20 Units IV ONCE Alize Arteaga MD ??? [DISCONTINUED] rosuvastatin (CRESTOR) tablet 20 mg 20 mg Oral Daily BEDTIME Kortney Ray, DO ??? [COMPLETED] ondansetron (ZOFRAN) 4 mg/2 mL injection 4 mg 4 mg IV ONCE Matteo Lyn MD4 mg at 02/15/201957 ??? [COMPLETED] sodium chloride 0.9% bolus solution 1,000 mL 1,000 mL IV ONCE Matteo Lyn MD Stopped at 02/15/202030 ??? [COMPLETED] morphine injection 6 mg 6 mg IV ONCE Matteo Lyn MD 6 mg at 02/15/202033 ??? [COMPLETED] HYDROmorphone (DILAUDID) 2 mg/mL injection 0.5 mg 0.5 mg IV q 2 hour PRN Matteo Lyn MD 0.5 mg at 02/16/20150 ??? [COMPLETED] iopamidoL (ISOVUE-300) 61 % injection (drawn from multi-use bulk pack) 120 mL 120 mL IV Intra-Proc Once Ceasar Bird MD 120 mL at 02/15/202127 ??? [COMPLETED] sodium chloride flush injection 10 mL 10 mL IV ONCE Ceasar Bird MD 10 mL at 02/15/202127 ??? dextrose 5% - sodium chloride 0.9% infusion IV See Admin Notes Loki Vences MD ??? dextrose 50% (D50) syringe 12.5 Gram 12.5 Gram IV See Admin Notes Loki Vences MD ??? dextrose 50% (D50) syringe 25 Gram 25 Gram IV See Admin Notes Loki Vences MD ??? glucagon HCL 1 mg/mL injection 1 mg 1 mg IM See Admin Notes Loki Vences MD ??? naloxone (NARCAN) 0.4 mg/mL injection 0.1 mg 0.1 mg IV See Admin Notes Loki Vences MD ??? [COMPLETED] sodium chloride 0.9% bolus solution 1,000 mL 1,000 mL IV ONCE Loki Vences MD Stopped at 02/16/20 0030 ??? potassium CHLORIDE in NaCl 0.9% 1,000 mL 20 mEq/L infusion IV Continuous Loki Vences MD Stopped at 02/16/20 0700 ??? potassium Cl in dextrose 5% - NaCl 0.9% 1,000 mL 20 mEq/L infusion IV Continuous Loki Vences MD 125 mL/hr at 02/16/20 1400 ??? insulin regular (HUMULIN R,NOVOLIN R) 1 Units/mL in sodium chloride 0.9% infusion 0-25 Units/hrIV Titrate Loki Vences MD 3.2 mL/hr at 02/16/20 1519 3.2 Units/hr at 02/16/20 1519 ??? enoxaparin (LOVENOX) injection 40 mg 40 mg subCUT Daily Loki Vences MD 40 mg at 02/16/20 1332 ??? [COMPLETED] insulin regular (HUMULIN R,NOVOLIN R) injection 5 Units 5 Units subCUT ONCE Loki Vences MD 5 Units at 02/16/20 0011 ??? [DISCONTINUED] morphine 4 mg/mL injection 4 mg 4 mg IV q 2 hour PRN Matteo Lyn MD 4 mg at 02/15/20 1959 ??? [DISCONTINUED] insulin regular IV BOLUS (HUMULIN R;NOVOLIN R) 1 unit/mL injection 8 Units 0.1 Units/kg IV ONCE Loki Vences MD ??? [DISCONTINUED] HYDROcodone-acetaminophen (NORCO) 10-325 mg per tablet 1 Tablet 1 Tablet Oral q 4 hour PRN Loki Vences MD 1 Tablet at 02/16/20 0741 Past Medical History: Diagnosis Date ??? Anxiety [...] of left power flow port 05/11/2019 ??? [place] ESOPHAGOGASTRODUODENOSCOPY TRANSORAL DIAGNOSTIC N/A 03/08/2018 ESOPHAGOGASTRODUODENOSCOPY performed by Ceasar Vega MD at [facility] Social History Tobacco Use ??? Smoking status: Current Every Day Smoker Packs/day: 1.00 Years: 18.00 Pack years: 18.00 Types: Cigarettes ??? Smokeless tobacco: Never Used ??? Tobacco comment: nicotine patch requested Substance Use Topics ??? Alcohol use: No Frequency: Never Binge frequency: Never Family History Problem Relation Name Age of Onset ??? Diabetes Father ??? High Cholesterol Father ??? Hypertension Father ??? Stroke Mother ??? Heart Disease Mother ??? Thyroid Disease Mother ??? High Cholesterol Mother ??? Heart Disease Maternal Grandmother ??? Diabetes Maternal Grandmother ??? Diabetes Paternal Grandmother ??? Diabetes Mother ROS: General: no fevers or chills HEENT: no congestion, visual disturbances Skin- no lesions or rashes. Cardiac: no chest pain, SOB , edema. Pulm: no cough, SOB, wheezing. GI- as per HPI - no hematuria, dysuria Neuro- denies hx of seizures, CVA. Psych: denies depression or anxiety Musculoskeletal: denies arthralgias, myalgias. Exam: Vitals: 02/16/20 1342 02/16/20 1430 02/16/20 1500 02/16/20 1520 BP: 105/61 98/60 BP Location: Right arm Right arm Patient Position (BP): Supine Supine Pulse: 96 (!) 104 (!) 103 100 Resp: 14 12 15 17 Temp: 98.4 ??F (36.9 ??C) 98.8 ??F (37.1 ??C) TempSrc: Oral Oral SpO2: 97% 96% 97% 96% Weight: Height: Gen: Awake and alert in NAD Neuro: Oriented x 3, non focal , SPARKS equally HEENT: PERRL, trachea midline, oral mucosa dry Cardiac: HRRR no murmur, no JVD or cyanosis Pulm: RR even unlabored, LCTA bilaterally Abdomen: TTP epigastric and LUQ. Skin: no rashes. Extremities: no edema, 1+ pulses Labs and imaging reviewed. A/P: hypertriglyceridemia / chylomicronemia syndrome : with recurrent pancreatitis. Pt gets plasmapheresis as outpatient q monthly. Admitted with TG > 4000- had plasma pheresis today. Will continue insulin gtt tonight and check TG in am. If TG < 500- will wean insulin gtt to SQ insulin in am. Once pain is controlled and TG better - start clear liquid diet Discussed with pt about compliance with diet and medication. No etoh use. Continue with fenofibrate and statin. Acute on chronic pancreatitis : NPO/ IVF dextrose and insulin gtt as above/ Pain control prn as per [facility] hospitalist. Dm2: insulin gtt tonight and transition to basal / bolus in am based on TG. Will check a1c now . Hypothyroidism : pt is on high dose of levothyroxine for her weight. ? Compliance. Will continue with 200 mcg of levothyroxine daily Repeat tsh in 4-6 weeks as outpatient. Thank you for allowing me to participate in the care of this patient. Please feel free to call me if you have any questions. Sincerely, Suzi Rosado MD * Karen Domingo, RD - 02/16/2020 2:41 PM CDTAssociated Order(s): IP CONSULT TO NUTRITION SERVICES Images from the original note were not included. CLINICAL DIETITIAN PROGRESS NOTE [facility] Nutrition Consult: education- hypertriglyceride induced pancreatits PMHx: 44 y.o. female with a history of chylomicronemia syndrome (receives monthly apheresis by pathologist Dr. 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 Food and Nutrition Related History: Consult received, pt is still NPO on insulin drip. She has beeneducated in the past on diet and follows a lower CHO/low fat diet per records, most recently in April. Pt is still NPO at this time. Will monitor for diet advancement and discussion. Assessment: Anthropometrics: Height: 5' 5 (165.1 cm) (02/15/201655) Weight: 77.1 kg (170 lb) (02/15/201655) Body mass index is 28.29 kg/m??. [place] body weight: 57 kg (125 lb 10.6 oz) Adjusted ideal body weight: 65 kg (143 lb 6.4 oz) Admit weight: Weight: 77.1 kg (170 lb) (02/15/201655) Wt Readings from Last 10 Encounters: 02/15/20 77.1 kg (170 lb) 12/14/19 78.9 kg (174 lb) 08/10/19 84.8 kg (187 lb) 05/24/19 87.7 kg (193 lb 4.8 oz) 05/11/19 88 kg (194 lb) 04/14/19 89.5 kg (197 lb 4.8 oz) 04/08/19 88 kg (194 lb) 02/18/19 89.1 kg (196 lb 8 oz) 02/02/19 85.6 kg (188 lb 12.8 oz) 10/28/18 88.3 kg (194 lb 9.6 oz) Last seven weights (if available) from 01/19/20 1442 to 02/16/20 1441 (Last 7 readings): Weight Weight Method 02/15/201655 77.1 kg (170 lb) Stated Past Medical History: Diagnosis Date [...] Smoker Lab Results Component Value Date/Time NA 134 (L) 02/16/2020 09:20 AM K 3.6 02/16/2020 09:20 AM CL 99 02/16/2020 09:20 AM BUN 4 (L) 02/16/2020 09:20 AM CREAT 0.39 (L) 02/16/2020 09:20 AM GLUCOSE 121 (H) 02/16/2020 09:20 AM CA 8.1 (L) 02/16/2020 09:20 AM ALBUMIN 3.6 02/16/2020 09:20 AM GFR >60 02/16/2020 09:20 AM MG 1.7 04/15/2019 03:22 AM PO4 3.7 08/23/2018 07:04 AM Lab Results Component Value Date/Time HGBA1C 7.7 (H) 06/29/2018 08:17 PM Pert Meds: dilaudid, insulin drip, protonix, KCl in D5 Food Allergies: green pepper, aspatame Skin: no breakdown noted Nutrition Prescription: DIET NPO Sips w/Meds, Intake Points: NPO Nutrition intake is is meeting less than 50% of recommended nutritional needs D: Inadequate oral intake r/t inability to consume adequate nutrition as evidenced by NPO I:Nutrition Intervention: 1. Monitor diet advancement 2. If unable to advance diet or pt unable to tolerate po, may need to consider nutrition support Goal: Initiation of nutrition/diet M/E: 1. Continue to monitor: Anthropometrics, Digestive, Skin, and Biochemical data 2. Follow up every 4-5 days and as needed. Karen Domingo RD LD Contact via [employer] Phone #: [phone] documented in this encounter ED Notes * Brown Reed RN - 02/16/2020 6:53 AM CDT Pt blood glucose 131. Insulin restarted at 4.3 per protocol. * Brown Reed RN - 02/16/2020 6:26 AM CDT Insulin infusion stopped due to blood sugar going from 152 to 77 per protocol. * Brown Reed RN - 02/16/2020 5:37 AM CDT Pt resting at this time on hospital bed. Reports improvement in pain. A&Ox4. VSS. Insulin infusing without difficulty. * Brown Reed RN - 02/16/2020 3:15 AM CDT Insulin restarted due to POC glucose at 107 per protocol * Brown Reed RN - 02/16/2020 2:35 AM CDT Blood glucose now 93. Insulin drip stopped per protocol. * Brown Reed RN - 02/16/2020 2:08 AM CDT Pt placed on Hospital bed. Fluids started per JUN. Medication given for pain and nausea. Pt is A&Ox4. VSS. Call light in reach. * Marlen Ma RN - 02/15/2020 9:51 PM CDT Hospitalist at bedside stating pt needs to go to TCU rather than neuro. aware and orders changed. Pt tearful. NAD noted. * Jose Guadalupe Conley RN - 02/15/2020 9:29 PM CDT Pt returned from Ct. Will continue to monitor. * Jose Guadalupe Conley RN - 02/15/2020 9:17 PM CDT Pt given medication per MAR. No further questions at this time. Patient/family has been informed about benefits and any potential clinically significant side effects or other concerns regarding the administration of the drug they have just been given. * Jose Guadalupe Conley RN - 02/15/2020 8:13 PM CDT Pt presents to the ED with LUQ pain. Pt reports that she has pancreatitis and hasnt been this bad in forever Pt reports that her pain is constant and nothing helps the pain.Pt reports that she usually doesn't eat or drink when pain gets bad but this pain keeps increasing. A&Ox4. RR even and non-labored. Pt resting on stretcher. Skin pink warm dry. Call light in reach. No further questions at this time. Pt currently crying in room due to pain. aware. * Jose Guadalupe Conley RN - 02/15/2020 8:12 PM CDT Medication given Per MAR. Pt crying in pain. MD notified. * Jeane Finley RN - 02/15/2020 7:34 PM CDT Bed: [id number] Expected date: Expected time: Means of arrival: Comments: Angella burgerer * Genoveva Bernal RN - 02/15/2020 6:10 PM CDT [facility] ED Adult Female Abdominal Pain Protocol [facility] Approved by: [facility] - Medical Executive Committee Approval Date: 05/14/2019 ORDERS ARE ENTERED ???PER PROTOCOL?? Nursing Orders: o Insert peripheral IV (excessive vomiting or diarrhea) Laboratory Orders: o CBC with diff ([id number]) o CMP (LAB17) o If female of childbearing age: POC Urine HCG (POC7) or HCG Qualitative urine (KCL364) if sending to lab o Urinalysis with Reflex Microscopy (HWC492) o Serum HCG (if knowingly ) (SCM494) o Obtain serum lipase (LAB99) if upper abdominal pain o Draw and send extra tubes to lab (ED hold) ([id number]) Diagnostic Test Orders: o If RUQ pain, consult attending physician for Gallbladder ultrasound o EKG if age >= 50 and having upper abdominal pain Include indication for test Medication Orders: o Sodium chloride 0.9% (normal saline) flush 5 mL every 8 hours o Sodium chloride 0.9% (normal saline) flush 5 mL PRN for saline lock or medication administration Additional Instructions: o Keep NPO until otherwise ordered by attending physician [facility] ED Adult Nausea/Vomiting Without Abdominal Pain Protocol [facility] Approved by: [facility] - Medical Executive Committee Approval Date: 05/14/2019 ORDERS ARE ENTERED ???PER PROTOCOL?? Nursing Orders: o Insert peripheral IV Laboratory Orders: o CBC ([id number]) o CMP (LAB17) o Urinalysis with Reflex Microscopy ([id number]) o If female of childbearing age POC Urine HCG (POC7) if waiting room wait time less than 30 minutesor HCG Qualitative urine (CWD881) if waiting room wait time is 30 minutes or more. Medication Orders: o Sodium chloride 0.9% (normal saline) flush 5mL every 8 hours o Sodium chloride 0.9% (normal saline) flush 5mL PRN for saline lock or medication administration o Ondansetron (Zofran) injection 4mg IVP one time only o Ondansetron (Zofran) 4mg ODT one tablet, one time only (if unable to initiate IV) o Reglan 10 mg IV one time if and unable to take ondansetron o Sodium chloride 0.9% (normal saline) 500 mL over 1 hr then 150 mL/hr * Matteo Lyn MD - 02/15/2020 4:41 PM CDT HISTORY OF PRESENT ILLNESS Casandra Doss, a 44 y.o. female presents to the ED with a Chief Complaint of Abdominal Pain Subjective Documented Triage Chief Complaint: Abdominal Pain 7:45 PM: Casandra Doss is a 44 y.o. female with a history of Chylomicronemia syndrome (montly apheresis managed by pathologist Dr. 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 Gates) and recurrent pancreatits, who presents for abdominal pain. Pt reports gradual onset LUQ abdominal pain with onset yesterday, which has steadily worsened to severe since onset. Pt describes the pain as constant burning with intermittent stabbing and states that the pain feels similar to past pancreatitis episodes. Pt reprots nausea since pain onset and 2 episodes of vomiting. Pt states that the last 2 episodes of LUQ pain had relieved with discontinuing PO intake for a short period of time, but this has not given pain relief with this episode. Pt denies constipation or urinary symptoms. Onset: gradual Severity: severe Duration: onset yesterday, since onset Frequency/Progression: Worsening, constant Quality: Burning with intermittent stabbing Radiation: None Modifiers: None Associated symptoms: N/V Primary Care Doctor: Guerrero Middleton PA-C History provided by: Medical records, the patient and the spouse Arrived by: Private vehicle Arrived from: Home REVIEW OF SYSTEMS Review of Systems Constitutional: Negative for fever. Gastrointestinal: Positive for abdominal pain, nausea and vomiting. Negative for constipation and diarrhea. Genitourinary: Negative for dysuria, frequency, hematuria and urgency. All other systems reviewed and are negative. [...] Adhesive, Aspartame, and Adhesive tape-silicones HOME MEDICATIONS Patient's Home Medications Current Home Medications CITALOPRAM (CELEXA) 40 MG TABLET EMPAGLIFLOZIN (JARDIANCE) 25 MG TABLET FENOFIBRATE (LOFIBRA) 160 MG ORAL TAB FLASH GLUCOSE SENSOR (FREESTYLE RAYMUNDO 14 DAY SENSOR) KIT INSULIN ASPART (NOVOLOG) 100 UNIT/ML INJECTION INSULIN GLARGINE (LANTUS) 100 UNIT/ML INJECTION LEVOTHYROXINE 200 MCG TABLET LORAZEPAM (ATIVAN) 1 MG TABLET METFORMIN (GLUCOPHAGE) 500 MG TABLET ONDANSETRON (ZOFRAN ODT) 4 MG TABLET, RAPID DISSOLVE PANTOPRAZOLE (PROTONIX) 40 MG TABLET, DELAYED RELEASE (E.C.) ROSUVASTATIN (CRESTOR) 20 MG TABLET TRAZODONE (DESYREL) 100 MG TABLET VARENICLINE (CHANTIX) 0.5 MG TABLET Medications Modified during this Encounter Medications Discontinued during this Encounter Objective PHYSICAL EXAM INITIAL VS BP: (!) 156/97 (02/15/201655), Heart Rate: 128 bpm (02/15/201655), Resp: 18 (02/15/201655), Pulse: (!) 128 (02/15/201655), Temp: 98.9 ??F (37.2 ??C) (02/15/201655), Temp src: Oral (02/15/201655), SpO2: 100 % (02/15/201655), Height: 5' 5 (165.1 cm) (02/15/201655), Weight: 77.1 kg (170 lb) (02/15/201655), BMI (Calculated): 28.29 (02/15/201655) No LMP recorded. Patient has had a hysterectomy. Physical Exam Vitals signs and nursing note reviewed. Constitutional: General: She is not in acute distress. Comments: Moderate distress, tearful HENT: Head: Normocephalic and atraumatic. Eyes: General: No scleral icterus. Pupils: Pupils are equal, round, and reactive to light. Neck: Musculoskeletal: Normal range of motion and neck supple. Abdominal: General: There is no distension. Palpations: Abdomen is soft. Abdomen is not rigid. Tenderness: There is abdominal tenderness in the epigastric area. There is no guarding or rebound. Hernia: A hernia is present. Hernia is present in the right inguinal area (reduced without difficulty). Musculoskeletal: Normal range of motion. General: No deformity. Skin: General: Skin is warm and dry. Findings: No rash. Neurological: General: No focal deficit present. Mental Status: She is alert. Mental status is at baseline. Sensory: No sensory deficit. Psychiatric: Judgment: Judgment normal. DIAGNOSTICS LAB: CBC WITH DIFFERENTIAL - Abnormal Result Value WBC 16.1 (*) RBC 4.12 HEMOGLOBIN 12.5 HEMATOCRIT 41.5 MCV 89.1 MCH 26.8 (*) MCHC 30.1 (*) RDW 14.2 RDW-STDEV 45.3 PLATELETS 320 MPV 10.2 NEUTROPHILS 79 LYMPHOCYTES 11 MONOCYTES 9 EOSINOPHILS 1 BASOPHILS 0 IMMATURE GRANULOCYTES 1 NEUTROPHIL ABSOLUTE 12.68 (*) LYMPHOCYTE ABSOLUTE 1.71 MONOCYTE ABSOLUTE 1.43 (*) EOSINOPHIL ABSOLUTE 0.13 BASOPHILS ABSOLUTE 0.05 IMMATURE GRANULOCYTES ABSOLUTE 0.11 (*) COMPREHENSIVE METABOLIC PANEL - Abnormal SODIUM 132 (*) POTASSIUM 4.5 CHLORIDE 92 (*) CO2 22 CALCIUM 9.2 BUN 5 (*) CREATININE 0.41 (*) GLUCOSE 220 (*) TOTAL PROTEIN 7.6 ALBUMIN 4.2 BILIRUBIN TOTAL 0.3 ALKALINE PHOSPHATASE 95 AST ALT GFR >60 GFR, >60 ANION GAP 18 (*) URINALYSIS WITH REFLEX MICROSCOPIC - Abnormal COLOR UA Yellow CLARITY UA Slightly Cloudy (*) SPECIFIC GRAVITY UA 1.018 PH UA 6.0 LEUKOCYTE ESTERASE UA Negative NITRITE UA Negative PROTEIN UA 2+ (*) GLUCOSE UA 2+ (*) KETONES UA Trace (*) UROBILINOGEN UA Normal BILIRUBIN UA Negative BLOOD UA 1+ (*) WBC UA 0-2 RBC UA 6-10 (*) BACTERIA UA 1+ (*) EPITHELIAL CELLS, URINE 11-25 (*) LIPASE - Abnormal LIPASE 68 (*) MANUAL DIFFERENTIAL - Abnormal SEGMENTED NEUTROPHILS 82 LYMPHOCYTES RELATIVE 13 MONOCYTES RELATIVE 3 EOSINOPHILS RELATIVE 1 BASOPHILS RELATIVE 2 NEUTROPHILS ABSOLUTE COUNT 13.50 (*) LYMPHOCYTES ABSOLUTE 2.10 MONOCYTES ABSOLUTE 0.45 EOSINOPHILS ABSOLUTE 0.15 BASOPHILS ABSOLUTE 0.30 (*) TOTAL CELLS COUNTED IN DIFF 110 RBC MORPHOLOGY abnormal PLATELET EST. Consistent w Count ANISOCYTOSIS 1+ POIKILOCYTES 1+ TRIGLYCERIDE - Abnormal TRIGLYCERIDE >4,425 (*) LACTIC ACID GLUCOSE LEVEL GLUCOSE LEVEL BASIC METABOLIC PANEL RADIOLOGY: CT ABDOMEN PELVIS W CONTRAST Radiologist Impression IMPRESSION: 1. Acute pancreatitis. Nonspecific 9 mm hypodense lesion in the distal aspect of the pancreas. 2. Right adnexal cyst measuring up to 4.9 cm, unchanged from the prior CT. INCIDENTAL FINDINGS: None. The examination was performed with the adjustment of mA according to the patient size and/or the use of Iterative 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 DICTATION LOCATION: Location [address] [place] [address] CT ABDOMEN PELVIS W CONTRAST PROCEDURES Procedures MEDICAL DECISION MAKING AND PLAN OF CARE --On initial evaluation, discussed plan of obtaining CT abdomen and labs. Will give morphine, Zofran, and IV fluids. Patient understands and agrees with this plan. 2028: Spoke with ANNA Bradshaw for the [facility], who agrees with the management and plan for admission to the TCU. Attending: Dr. Ortega. 2047: Updated patient on results, diagnosis, and plan for admission. Patient agrees with the plan. The opportunity for questions was given and questions were answered to the patient's satisfaction. All questions and concerns have been addressed. 2148: Dr. Vences (hospitalist) at bedside to assess pt. MDM Summary Statement: 44 year old female presents with acute on chronic pancreatitis. Lab and imaging results reviewed asabove. She required 10 mg morphine and ultimately dilaudid. Plan admission for continued treatment and further evaluation. I have reviewed previous: notes I have reviewed current: labs and imaging I have reviewed nursing notes related to past medical history, social history, and review of systems and agree, unless otherwise noted. Consults: hospitalist and admitting/primary care Medications Administered During the ED Stay from 02/15/2020 1641 to 02/15/20203 Date/Time Order Dose Route Action 02/15/20201958 morphine 4 mg/mL injection 4 mg 4 mg IV Given 02/15/20201957 ondansetron (ZOFRAN) 4 mg/2 mL injection 4 mg 4 mg IV Given 02/15/20202030 sodium chloride 0.9% bolus solution 1,000 mL 0 mL IV Stopped 02/15/20202000 sodium chloride 0.9% bolus solution 1,000 mL 1,000 mL IV New Bag 02/15/20202033 morphine injection 6 mg 6 mg IV Given 02/15/20202110 HYDROmorphone (DILAUDID) 2 mg/mL injection 0.5 mg 0.5 mg IV Given 02/15/20202127 iopamidoL (ISOVUE-300) 61 % injection (drawn from multi-use bulk pack) 120 mL 120 mL IV Contrast Given 02/15/20202127 sodium chloride flush injection 10 mL 10 mL IV Given . 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 See after visit summary for patient education on discharged patients. ED Disposition ED Disposition Condition User Date/Time Comment Admit Stable Matteo Lyn MD Mon Feb 15, 2020 8:34 PM ATTESTATION STATEMENTS This note has been prepared by Serafin Riley acting as a scribe for Dr. Matteo Lyn on 02/15/2020 at 2150. The scribe's documentation has been prepared under my direction and personally reviewed by me, Dr. Lyn, in its entirety on 02/15/20 at 10:33 PM. I confirm that the note above accurately reflects all work, treatment, procedures, and medical decision making performed by me. documented in this encounter Miscellaneous Notes * Care Plan - Seda Zuniga LMSW - 02/29/2020 2:18 PM CST Notified [facility] to cancel referral. Met with pt at bedside and verified no other needs. IM Letter given. LBOO Schneider, DACIA [id number] Day 1 - Current ([place] Pathway: Adult and Obstetrics) Patient, family, or healthcare designee is participating in individual care plan process Outcome: Met Problem: Discharge Planning Goal: Identify discharge needs upon admission and through discharge Description: Outcome: Progressing WELDER * Care Plan - Betty Davis RN - 02/29/2020 7:22 AM CST Pt stated she tolerated her dinner that her brought her well. Tube feeding stopped as ordered. Pt was able to take all of her PO meds without issue. Pt denied any pain this am, scheduled painmeds given as ordered. WELDER * Care Plan - Erin Herndon RN - 02/28/2020 4:29 AM CST Patient slept through the night. Tolerating tube feed well. Up independently. WELDER * Care Plan - Harvey Littlejohn RN - 02/27/2020 6:34 PM CDT Patient resting in bed. C/o abdominal pain, Dilaudid given. Diet advanced to low fat diet this afternoon, had 1/2 pork sandwich and few bites of spaghetti . * Care Plan - Schuyler Chadwick GN - 02/27/2020 6:15 AM CDT Pt AXO X4; up independently in room IVF infusing; tube feeding continued through corpak with no issues C/O pain in abdomen; medicated per MAR Resting between care * Care Plan - Sharyn Stanley RN - 02/26/2020 7:34 PM CDT Pt afebrile, PRN Dilaudid given X3 on this shift with scheduled pain med, pt up in the room, ambulated to the bathroom, tube feed advanced, pt tolerated well, no distress noted, VSS. Pathway Day 3 - Current (INTERDIS PW: HYPERGLYCEMIA, ADULT) Metabolic: Maintain glucose between 110-180 mg/dL when receiving subcutaneous insulin and between 110-160 mg/dL when receiving IV insulin. Outcome: Met Nutrition Management: Patient maintaining appropriate carbohydrate selections with each meal. Outcome: Met Symptom Management: Patient denies signs and symptoms of hyperglycemic or hypoglycemic events Outcome: Met * Care Plan - Seda Zuniga LMSW - 02/26/2020 2:43 PM CDT Discussed home TF with MD. If they decide to DC pt home on TF, SW to send orders to [facility]. Will need full manufacturing worker/MD recommendation in the order specifying formula, FWF protocol, calorie goals, anticipated length of need, and details of administration (if it's bolus, gravity, pump, continuous, nocturnal, meal times, etc.). Will also need to have an MD who will follow this in the community.We will have to submit to insurance for approval as well. Updated Jose with [facility] that MD does not plan to DC over weekend. Weekend CM to send orders if received or this SW to follow-up Saturday. LOBO Schneider, DACIA [id number] Day 1 - Current ([place] Path[facility]: Adult and Obstetrics) Patient, family, or healthcare designee is participating in individual care plan process Outcome: Met Problem: Discharge Planning Goal: Identify discharge needs upon admission and through discharge Description: Outcome: Progressing * Care Plan - Erin Herndon RN - 02/26/2020 5:52 AM CDT Patient rested quietly through the night. Tolerating tube feeding without complaint. Requiring painmedication every 3 to 4 hours. * Care Plan - Jeff Keller RN - 02/25/2020 5:55 PM CDT Pt had constant c/o pain throughout shift, pain medication given per JUN. Ambulates independently in room. Corpak placed this shift and tube feeding started. IV fluids started D5 NS @ 100mL/hr. Bloodsugar checked Q4 hours. Pt tolerating clear liquid diet when she decides to order a try. She didn'twant to eat breakfast but ordered lunch. Pt has been resting quietly all shift. * Care Plan - Seda Zuniga LMSW - 02/25/2020 2:35 PM CDT Initial Discharge Planning Assessment completed. Introductory Care Management letter given. Care Management visited with pt via phone, and discussed Care Management role and discharge planning. Confirmed PHI# with pt/family member prior to conversation. Prior to admission, patient's functional level IND. Prior to admission, patient resided at home with spouse and 16yo son. Prior to admission, patient received no services in home. Primary caregiver identified as spouse José Miguel. Patient does want caregiver involved in discharge planning. No DME in place. Patient has not had a stay at an acute care hospital in the last 30 days. If patient will go to SNF/NH at ms, consider if a LEVEL II PASARR screening should be started for: Mental Health (prior admission or problems in level of functioning related to MH diagnosis) no Developmental Delay diagnosis no Related Condition (examples: seizure disorder, cerebral palsy, spina bifida, autism) prior to age 22 no Any YES answer above requires a LEVEL II PASARR screening. Readmission Risk (patient becomes high risk with a score of 8 or greater) 5 Total Score (Last filed: Feb 25, 2020600) 5 Prior Hospitalizations Primary Emergency Contact: José Miguel Doss, PCP verified as Guerrero Middleton PA-C. Patient's insurance verified as Payor: AETNA / Plan: AETNA PPO MCR / Product Type: Medicare ManagedCare / The patient's preferred pharmacy is [id number] [place], [place] - [address] [place] [address] Discussed discharge goals and possible discharge needs including DC home with spouse and possibly with TF through CT. Sent referral to [facility] and called and notified Jose of possible home TF needed. Care Management contact information provided. Care Management will continue to follow and assist asneeded. LOBO Schneider, DACIA [id number] Day 1 - Current ([place] [facility]: Adult and Obstetrics) Patient, family, or healthcare designee is participating in individual care plan process Outcome: Met Problem: Discharge Planning Goal: Identify discharge needs upon admission and through discharge Description: Outcome: Progressing * Care Plan - Gabriela Dye, Student Nurse - 02/24/2020 5:30 PM CDT Pt resting in bed now. Pt had constant c/o pain in her abd and has been given pain medication. Pt went to have her corpak placement checked and everything was found to be normal. When RN tried removing the guide wire she was having difficulty and tried flushing it several times with multiple people attempting.The corpak was removed and is scheduled to be replaced tomorrow. When RN went to round patient stated I cheated and had mashed potatoes and gravy . RN made MD aware and educated on the importance of sticking to her clear diet. Blood sugars checked Q4, IV fluids started. Ambulates independently to bathroom. * Care Plan - Rolando Hernandez RN - 02/24/2020 4:06 AM CDT End of shift note: Received bedside report and assumed care of Casandra Doss from RN at 1900. Head to toe assessment documented in flow sheet. Patient updated on plan of care. Questions and concerns answered. Pain medications per JUN. Ambulates with Steady gait. Pt able to turn and reposition self in bed Patient has had no falls at this time and is fall risk level Low Fall precautions maintained, call light and personal items in reach, and bed low with wheels locked., Will continue to monitor and report to oncoming nurse. If patient is a High fall risk, do not leave alone in the bathroom. Rolando Hernandez RN * Care Plan - Abhay Griffiths RN - 02/23/2020 10:06 AM CDT Casandra Doss doing well, nausea controlled w/ meds per MAR, pain is hard to control. Corpak ryan, MD notified. Will advance possibly tomorrow. VSS. BS stable. No new concerns. * Care Plan - Sylvie Carroll RN - 02/23/2020 7:59 AM CDT Pt c/o abdominal pain mostly relieved with prn meds per the JUN. BS stable throughout shift, and ptambulated without difficulty. 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 Resident and NPaware. No changes or new orders, but IV pain med held unless BP is improved. Pt rested quietly and slept between care. NPO at midnight in preparation for IR tube feeding placement. * Care Plan - Amena Carlisle RN - 02/22/2020 8:07 PM CDT Results for CASANDRA DOSS ( ) as of 02/22/2020 20:06 Ref. Range 02/22/2020 08:58 02/22/2020 13:50 02/22/2020 17:44 POC GLUCOSE Latest Ref Range: 74 - 99 mg/dL 92 113 (H) 122 (H) Not requiring SSI. Lantus insulin held as pt. States she was told to decrease oral intake to help alleviate pain and nausea. Pt. Complains of and is medicated for complaint of abdominal pain and nausea at frequent intervals. Nutrition consult done. * Care Plan - Sylvie Carroll RN - 02/22/2020 6:37 AM CDT Pt c/o abdominal pain and nausea mostly relieved with prn meds per the JUN. VS and BS stable throughout shift, and pt ambulated without difficulty. Pt c/o diarrhea during the day, but did not have any loose stools this shift. Pt rested quietly and slept between care. * Care Plan - Amena Carlisle RN - 02/21/2020 7:43 PM CDT Results for CASANDRA DOSS ( ) as of 02/21/2020 19:42 Ref. Range 02/21/2020 08:49 02/21/2020 13:51 02/21/2020 18:49 POC GLUCOSE Latest Ref Range: 74 - 99 mg/dL 101 (H) 147 (H) 79 Pt. Medicated for nausea and abdominal pain after eating fat control, diabetic diet. Started on lantus insulin. Medicated x1 for POC glucose > 140. Diet changed to clear liquid. Appetite minimal for clear liquid. Awaiting nutrition and GI consults for possible PPN or NJ tube. * Care Plan - Sylvie Carroll RN - 02/21/2020 6:25 AM CDT Pt c/o abdominal pain relieved with prn and scheduled meds per the MAR. VSS throughout the shift, and pt ambulated without difficulty. BS low at start of shift, D5NS started per MD order, and BS stable for remainder of shift. Pt rested quietly and slept between care. * Care Plan - Abhay Griffiths RN - 02/20/2020 6:35 PM CDT Casandra Doss slept/rested most of day, still independently up ad gaudencio in room/to bathroom. No BM asof yet. Adult bowel protocol utilized. Night RN will give senna w/ evening medications. VSS. Blood sugars trending down. Discussed foods/importance of nutrition r/t blood sugars. Pt encouraged PO - tolerated lunch with mild nausea following - zofran administered & pt reported relief. No emesis. Ate all of bolivian onion soup, peaches, and saltines. Drinking cranberry juice throughout day. Pain persisted throughout day - IV pain meds given x2 for pain scores 7-8/10 to provide relief. Hypoglycemic event this evening starting at 1830 - BS result of 51. Trending up w/ apple juice/gissell crackers/peanut butter. Pt denies any S/SX other than fatigue. Pt ordered dinner. * Care Plan - Sylvie Carroll RN - 02/20/2020 8:14 AM CDT Pt arrived to floor and oriented to room 63. VSS throughout shift, and pt ambulated without difficulty. Pt c/o pain relieved with prn meds per the MAR. Pt rested quietly and slept between care. UNDRESS AND ASSESS FOR ALL ADMISSIONS AND TRANSFERS: Remove all existing dressings and assess all wounds upon admission (unless instructed by physician). Undress and Assess performed by: bedside coworker Sylvie OLGUIN upon transfer to [facility] Chin Score: Chin Score: 20 (02/19/20 1019) Patient does not have skin breakdown. If yes Description of wound location and appearance: LDA added for any open areas and for non-blanching pink/red or purple areas? N/A (please note, heels, ankles, knees, hips, sacrum, [...] wound care services. 5. Is a medical accountant in place?no If yes, remove device/brace/splint to [...] etc.). Wound care consult was not initiated. [facility] EDNA Skin Care Injury Prevention and Treatment Protocol [facility] Approved by: [facility] - Medical Executive Committee Approval Date: 05/14/2019 ORDERS ARE ENTERED ???PER PROTOCOL?? Nursing Orders: When a patient age 18 years or older has: a documented Chin score of 18 or less or a Chin sub score of 2 or 1, or a documented condition on the problem list of: diabetes, malnutrition or cachectic, paralysis, spinal cord disorder/injuries or muscle/neurological disease, THEN, the RN will order the Skin Care/Pressure Injury Prevention Pathway and initiate all appropriate interventions as per the Chin Risk Assessment Algorithm. When a patient age 18 years or older has a wound requiring treatment, the RN and Wound Care Nurses may order the Skin Care/Pressure Ulcer/Lower Extremity Ulcer Treatment Pathway and use appropriate treatments found in the Nursing Algorithm. The Wound Care Nurse may also order treatments found in the Wound Care Algorithm. * Care Plan - Yamil Bejarano RN - 02/19/2020 4:27 PM CDT Shift Note: Neuro: A&O x 4 CV: NSR 70-90s, SBP 90-110s Resp: RA, clear lung sounds GI: BM-, unable to tolerate solid diet w/o stomach pain, started back on clear liquids; insulin gttd/c'd : AUOP via bathroom Pain/Delirium/Sleep: c/o abdominal pain frequently throughout shift. Scheduled tylenol and balwinder given, as well as PRN Dilaudid and a one time extra dose of Dilaudid. Pain increased after eating lunch- switched back to clears Plan: pain control, transfer to the floor Shift Undress and Assess performed by two coworkers: 1. Yamil OLGUIN 2. Angeline SANDHU The patient does not have existing skin breakdown, if yes, describe: N/A The patient does not have new purple/sissy/dark red over ANY bony prominences (ears, elbows, knees, heels, coccyx, hips), if yes, describe: N/A ~If ANY answer 'yes'- please re-consult and call wound care~ Wound care consult was not in place. Wound care consult was not initiated. Are there currently any skin protectant dressings in place, if yes, where? N/A If yes, please describe condition of skin under dressing: N/A If no, were any applied and where: N/A Are there any currently any medical devices in place (leg immobilizers, FMS, c- collars, splints, etc.)? N/A If yes, describe skin under device: N/A Education: Patient has Chin Score of 18. Patient educated on importance of q2 hour [...] staff. Patient/family demonstrates understanding of stated education. Patient Goals Not Met: Pathway Day 1 - Current (INTERDIS PW: HYPERGLYCEMIA, ADULT) Nutrition Management: Patient maintains appropriate carbohydrate selections with each meal. Outcome: Not Met Problem: Pain, Potential/Actual Goal: Verbalizes/displays acceptable comfort level or baseline comfort level Description: Outcome: Variance Problem: Nutrition/Endocrine Goal: Achieve optimal nutrition and fluid status to meet metabolic needs throughout hospitalization Outcome: Variance * Care Plan - Puja Holden LMSW - 02/16/2020 11:12 AM CDT Clinical documentation reviewed. Comprehensive Discharge Planning Risk Assessment was completed. Readmission Risk (patient becomes high risk with a score of 8 or greater) 5 Total Score (Last filed: Feb 16, 2020 0600) 5 Prior Hospitalizations Total Score of 9 or below does not identify immediate needs for discharge. Age Score: 0 Disability Score: 0 Prior Living Status Score: {0 Mobility Limitation Score: 0 TOTAL SCORE: [address] consult if needs for discharge are identified. Care Management will continue to follow for discharge planning. LOBO Reyes, DACIA [phone] Day 1 - Current ([place] Path[facility]: Adult and Obstetrics) Patient, family, or [...] [facility] [place] [id number] [place] [address] Marlys Mayer MD [address] [place] [address] documented as of this encounter Procedures Procedure Name Priority Date/Time Associated Diagnosis Comments POC GLUCOSE Routine 02/29/2020 11:45 AM TIG WELDER POC GLUCOSE Routine 02/29/2020 10:01 AM TIG WELDER CBC WITH DIFFERENTIAL Routine 02/29/2020 7:05 AM TIG WELDER BASIC METABOLIC PANEL Routine 02/29/2020 7:05 AM TIG WELDER POC GLUCOSE Routine 02/29/2020 4:16 AM TIG WELDER POC GLUCOSE Routine 02/29/2020 12:06 AM TIG WELDER POC GLUCOSE Routine 02/28/2020 9:20 PM TIG WELDER POC GLUCOSE Routine 02/28/2020 4:20 PM TIG WELDER POC GLUCOSE Routine 02/28/2020 12:40 PM TIG WELDER CBC WITH DIFFERENTIAL Routine 02/28/2020 9:42 AM TIG WELDER BASIC METABOLIC PANEL Routine 02/28/2020 9:42 AM TIG WELDER POC GLUCOSE Routine 02/28/2020 8:27 AM TIG WELDER POC GLUCOSE Routine 02/28/2020 4:30 AM TIG WELDER POC GLUCOSE Routine 02/28/2020 12:41 AM CDT POC GLUCOSE Routine 02/27/2020 8:29 PM CDT POC GLUCOSE Routine 02/27/2020 4:32 PM CDT POC GLUCOSE Routine 02/27/2020 12:17 PM CDT CBC WITH DIFFERENTIAL Routine 02/27/2020 8:42 AM CDT PHOSPHORUS Routine 02/27/2020 8:42 AM CDT MAGNESIUM LEVEL Routine 02/27/2020 8:42 AM CDT BASIC METABOLIC PANEL Routine 02/27/2020 8:42 AM CDT POC GLUCOSE Routine 02/27/2020 8:23 AM CDT POC GLUCOSE Routine 02/27/2020 5:[address] ABDOMEN PELVIS W CONTRAST Routine 02/26/2020 10:25 PM CDT POC GLUCOSE Routine 02/26/2020 9:44 PM CDT POC GLUCOSE Routine 02/26/2020 6:15 PM CDT POC GLUCOSE Routine 02/26/2020 12:55 PM CDT POC GLUCOSE Routine 02/26/2020 9:37 AM CDT PHOSPHORUS Routine 02/26/2020 7:11 AM CDT MAGNESIUM LEVEL Routine 02/26/2020 7:11 AM CDT BASIC METABOLIC PANEL Routine 02/26/2020 7:11 AM CDT POC GLUCOSE Routine 02/26/2020 4:01 AM CDT POC GLUCOSE Routine 02/25/2020 11:40 PM CDT POC GLUCOSE Routine 02/25/2020 10:05 PM CDT POC GLUCOSE Routine 02/25/2020 6:11 PM CDT POC GLUCOSE Routine 02/25/2020 12:29 PM CDT XR FLUORO NG TUBE PLACEMENT SI Stat 02/25/2020 11:00 AM CDT POC GLUCOSE Routine 02/25/2020 9:11 AM CDT XR ABDOMEN FOR FEEDING TUBE 1 VW Stat 02/25/2020 8:42 AM CDT TRIGLYCERIDE Routine 02/25/2020 6:35 AM CDT PHOSPHORUS Routine 02/25/2020 6:35 AM CDT MAGNESIUM LEVEL Routine 02/25/2020 6:35 AM CDT BASIC METABOLIC PANEL Routine 02/25/2020 6:35 AM CDT POC GLUCOSE Routine 02/25/2020 4:07 AM CDT POC GLUCOSE Routine 02/25/2020 12:38 AM CDT POC GLUCOSE Routine 02/24/2020 9:44 PM CDT POC GLUCOSE Routine 02/24/2020 5:09 PM CDT CBC WITH DIFFERENTIAL Routine 02/24/2020 2:36 PM CDT POC GLUCOSE Routine 02/24/2020 12:57 PM CDT XR FLUORO NG TUBE PLACEMENT SI Routine 02/24/2020 11:33 AM CDT XR ABDOMEN FOR FEEDING TUBE 1 VW Stat 02/24/2020 10:18 AM CDT POC GLUCOSE Routine 02/24/2020 9:28 AM CDT TRIGLYCERIDE Routine 02/24/2020 7:58 AM CDT PHOSPHORUS Routine 02/24/2020 7:58 AM CDT MAGNESIUM LEVEL Routine 02/24/2020 7:58 AM CDT BASIC METABOLIC PANEL Routine 02/24/2020 7:58 AM CDT POC GLUCOSE Routine 02/24/2020 4:20 AM CDT POC GLUCOSE Routine 02/23/2020 11:58 PM CDT POC GLUCOSE Routine 02/23/2020 8:07 PM CDT XR ABDOMEN FOR FEEDING TUBE 1 VW Stat 02/23/2020 6:30 PM CDT POC GLUCOSE Routine 02/23/2020 4:45 PM CDT POC GLUCOSE Routine 02/23/2020 12:34 PM CDT POC GLUCOSE Routine 02/23/2020 9:38 AM CDT TRIGLYCERIDE Routine 02/23/2020 6:45 AM CDT PHOSPHORUS Routine 02/23/2020 6:45 AM CDT MAGNESIUM LEVEL Routine 02/23/2020 6:45 AM CDT BASIC METABOLIC PANEL Routine 02/23/2020 6:45 AM CDT POC GLUCOSE Routine 02/23/2020 4:05 AM CDT POC GLUCOSE Routine 02/22/2020 10:49 PM CDT POC GLUCOSE Routine 02/22/2020 5:44 PM CDT POC GLUCOSE Routine 02/22/2020 1:50 PM CDT POC GLUCOSE Routine 02/22/2020 8:58 AM CDT POC GLUCOSE Routine 02/21/2020 11:07 PM CDT POC GLUCOSE Routine 02/21/2020 6:49 PM CDT POC GLUCOSE Routine 02/21/2020 1:51 PM CDT POC GLUCOSE Routine 02/21/2020 8:49 AM CDT TRIGLYCERIDE Routine 02/21/2020 7:56 AM CDT Acute on chronic pancreatitis Hypertriglyceridem ia BASIC METABOLIC PANEL Routine 02/21/2020 7:56 AM CDT POC GLUCOSE Routine 02/21/2020 12:27 AM CDT POC GLUCOSE Routine 02/20/2020 8:29 PM CDT POC GLUCOSE Routine 02/20/2020 7:04 PM CDT POC GLUCOSE Routine 02/20/2020 6:45 PM CDT POC GLUCOSE Routine 02/20/2020 6:29 PM CDT POC GLUCOSE Routine 02/20/2020 12:41 PM CDT POC GLUCOSE Routine 02/20/2020 9:50 AM CDT TRIGLYCERIDE Routine 02/20/2020 6:43 AM CDT Acute on chronic pancreatitis Hypertriglyceridem ia BASIC METABOLIC PANEL Routine 02/20/2020 6:43 AM CDT POC GLUCOSE Routine 02/19/2020 8:00 PM CDT POC GLUCOSE Routine 02/19/2020 6:05 PM CDT POC GLUCOSE Routine 02/19/2020 2:15 PM CDT POC GLUCOSE Routine 02/19/2020 10:11 AM CDT BASIC METABOLIC PANEL Routine 02/19/2020 8:14 AM CDT POC GLUCOSE Routine 02/19/2020 6:54 AM CDT POC GLUCOSE Routine 02/19/2020 5:58 AM CDT POC GLUCOSE Routine 02/19/2020 5:06 AM CDT TRIGLYCERIDE Routine 02/19/2020 4:09 AM CDT Acute on chronic pancreatitis Hypertriglyceridem ia POC GLUCOSE Routine 02/19/2020 3:58 AM CDT POC GLUCOSE Routine 02/19/2020 3:20 AM CDT POC GLUCOSE Routine 02/19/2020 2:01 AM CDT POC GLUCOSE Routine 02/19/2020 12:57 AM CDT POC GLUCOSE Routine 02/19/2020 12:01 AM CDT POC GLUCOSE Routine 02/18/2020 11:00 PM CDT POC GLUCOSE Routine 02/18/2020 10:01 PM CDT POC GLUCOSE Routine 02/18/2020 8:57 PM CDT POC GLUCOSE Routine 02/18/2020 8:00 PM CDT POC GLUCOSE Routine 02/18/2020 7:02 PM CDT POC GLUCOSE Routine 02/18/2020 6:00 PM CDT BASIC METABOLIC PANEL Routine 02/18/2020 5:38 PM CDT POC GLUCOSE Routine 02/18/2020 4:57 PM CDT POC GLUCOSE Routine 02/18/2020 3:54 PM CDT POC GLUCOSE Routine 02/18/2020 3:05 PM CDT POC GLUCOSE Routine 02/18/2020 1:58 PM CDT POC GLUCOSE Routine 02/18/2020 1:02 PM CDT POC GLUCOSE Routine 02/18/2020 11:57 AM CDT POC GLUCOSE Routine 02/18/2020 11:06 AM CDT POC GLUCOSE Routine 02/18/2020 10:01 AM CDT POC GLUCOSE Routine 02/18/2020 9:02 AM CDT POC GLUCOSE Routine 02/18/2020 7:59 AM CDT POC GLUCOSE Routine 02/18/2020 7:08 AM CDT POC GLUCOSE Routine 02/18/2020 6:00 AM CDT POC GLUCOSE Routine 02/18/2020 4:59 AM CDT CBC WITH DIFFERENTIAL Routine 02/18/2020 4:04 AM CDT TRIGLYCERIDE Routine 02/18/2020 4:04 AM CDT Acute on chronic pancreatitis Hypertriglyceridem ia POC GLUCOSE Routine 02/18/2020 4:02 AM CDT POC GLUCOSE Routine 02/18/2020 3:00 AM CDT POC GLUCOSE Routine 02/18/2020 2:08 AM CDT POC GLUCOSE Routine 02/18/2020 12:57 AM CDT BASIC METABOLIC PANEL Routine 02/17/2020 11:57 PM CDT POC GLUCOSE Routine 02/17/2020 11:55 PM CDT POC GLUCOSE Routine 02/17/2020 10:58 PM CDT POC GLUCOSE Routine 02/17/2020 9:58 PM CDT POC GLUCOSE Routine 02/17/2020 8:53 PM CDT POC GLUCOSE Routine 02/17/2020 8:02 PM CDT POC GLUCOSE Routine 02/17/2020 7:01 PM CDT POC GLUCOSE Routine 02/17/2020 6:00 PM CDT POC GLUCOSE Routine 02/17/2020 4:59 PM CDT BASIC METABOLIC PANEL Routine 02/17/2020 4:10 PM CDT POC GLUCOSE Routine 02/17/2020 4:03 PM CDT POC GLUCOSE Routine 02/17/2020 2:59 PM CDT POC GLUCOSE Routine 02/17/2020 2:05 PM CDT POC GLUCOSE Routine 02/17/2020 1:01 PM CDT POC GLUCOSE Routine 02/17/2020 12:00 PM CDT POC GLUCOSE Routine 02/17/2020 10:58 AM CDT POC GLUCOSE Routine 02/17/2020 10:03 AM CDT POC GLUCOSE Routine 02/17/2020 9:00 AM CDT BASIC METABOLIC PANEL Routine 02/17/2020 8:11 AM CDT POC GLUCOSE Routine 02/17/2020 8:03 AM CDT POC GLUCOSE Routine 02/17/2020 6:58 AM CDT CBC WITH DIFFERENTIAL Routine 02/17/2020 6:32 AM CDT POC GLUCOSE Routine 02/17/2020 5:05 AM CDT POC GLUCOSE Routine 02/17/2020 4:00 AM CDT POC GLUCOSE Routine 02/17/2020 2:59 AM CDT POC GLUCOSE Routine 02/17/2020 2:05 AM CDT BASIC METABOLIC PANEL Routine 02/17/2020 2:00 AM CDT TRIGLYCERIDE Routine 02/17/2020 1:10 AM CDT Acute on chronic pancreatitis Hypertriglyceridem ia POC GLUCOSE Routine 02/17/2020 12:57 AM CDT POC GLUCOSE Routine 02/16/2020 11:55 PM CDT POC GLUCOSE Routine 02/16/2020 10:58 PM CDT POC GLUCOSE Routine 02/16/2020 9:57 PM CDT POC GLUCOSE Routine 02/16/2020 8:57 PM CDT POC GLUCOSE Routine 02/16/2020 7:51 PM CDT POC GLUCOSE Routine 02/16/2020 6:55 PM CDT POC GLUCOSE Routine 02/16/2020 5:59 PM CDT POC GLUCOSE Routine 02/16/2020 5:16 PM CDT POC GLUCOSE Routine 02/16/2020 4:13 PM CDT HEMOGLOBIN A1C Routine 02/16/2020 3:24 PM CDT POC GLUCOSE Routine 02/16/2020 3:18 PM CDT POC GLUCOSE Routine 02/16/2020 1:59 PM CDT BASIC METABOLIC PANEL Routine 02/16/2020 1:40 PM CDT POC GLUCOSE Routine 02/16/2020 12:59 PM CDT POC GLUCOSE Routine 02/16/2020 12:16 PM CDT POC GLUCOSE Routine 02/16/2020 11:42 AM CDT POC GLUCOSE Routine 02/16/2020 11:06 AM CDT POC GLUCOSE Routine 02/16/2020 10:18 AM CDT TSH REFLEXIVE Routine 02/16/2020 9:20 AM CDT TRIGLYCERIDE Stat 02/16/2020 9:20 AM CDT T4 FREE Routine 02/16/2020 9:20 AM CDT COMPREHENSIVE METABOLIC PANEL Stat 02/16/2020 9:20 AM CDT POC GLUCOSE Routine 02/16/2020 9:11 AM CDT POC GLUCOSE Routine 02/16/2020 7:51 AM CDT POC GLUCOSE Stat 02/16/2020 7:18 AM CDT POC GLUCOSE Stat 02/16/2020 6:51 AM CDT POC GLUCOSE Stat 02/16/2020 6:19 AM CDT POC GLUCOSE Stat 02/16/2020 5:21 AM CDT DIFFERENTIAL, MANUAL Stat 02/16/2020 5:21 AM CDT CBC WITH DIFFERENTIAL Stat 02/16/2020 5:21 AM CDT POC GLUCOSE Stat 02/16/2020 4:17 AM CDT POC GLUCOSE Stat 02/16/2020 3:44 AM CDT POC GLUCOSE Stat 02/16/2020 3:06 AM CDT POC GLUCOSE Stat 02/16/2020 2:30 AM CDT POC GLUCOSE Stat 02/16/2020 1:05 AM CDT LACTIC ACID Stat 02/16/2020 12:45 AM CDT BASIC METABOLIC PANEL Stat 02/16/2020 12:45 AM CDT POC GLUCOSE Stat 02/15/2020 11:[address] ABDOMEN PELVIS W CONTRAST Stat 02/15/2020 9:27 PM CDT URINALYSIS W/REFLEX MICROSCOPIC Stat 02/15/2020 8:09 PM CDT DIFFERENTIAL, MANUAL Stat 02/15/2020 6:21 PM CDT CBC WITH DIFFERENTIAL Stat 02/15/2020 6:21 PM CDT TRIGLYCERIDE Stat 02/15/2020 6:21 PM CDT LIPASE Stat 02/15/2020 6:21 PM CDT COMPREHENSIVE METABOLIC PANEL Stat 02/15/2020 6:21 PM CDT documented in this encounter Results * (ABNORMAL) POC GLUCOSE (02/29/2020 11:45 AM TIG WELDER) GLUCOSE POC 166(H) 74 - 99 mg/dL 02/29/2020 11:45 AM TIG WELDER [facility] LABOR[facility] CAREER CENTER ADVISOR NAME POC APRIL DURAN 02/29/2020 11:45 AM TIG WELDER [facility] Blood, whole 02/29/2020 11:4 5 AM TIG WELDER 02/29/2020 11:54 AM TIG WELDER Karen Thomas MD POINT OF CARE FLY Serrano Performing Organization Address [facility] Co de Phone Number [facility]# [id number] [address] [place] [address] * (ABNORMAL) POC GLUCOSE (02/29/2020 10:01 AM TIG WELDER) GLUCOSE POC 141(H) 74 - 99 mg/dL 02/29/2020 10:01 AM TIG WELDER [facility] CAREER CENTER ADVISOR NAME POC APRIL DURAN 02/29/2020 10:01 AM [facility] Blood, whole 02/29/2020 10:0 1 AM TIG WELDER 02/29/2020 10:11 AM TIG WELDER Karen Thomas MD POINT OF CARE FLY Serrano Performing Organization Address City/[facility]/ZIP Co de Phone Number [facility]# [id number] [address] [place] [address] * (ABNORMAL) BASIC METABOLIC PANEL (02/29/2020 7:05 AM TIG WELDER) SODIUM 137 136 - 145 mmol/L 02/29/2020 7:46 AM [facility] POTASSIUM 3.9 3.5 - 5.0 mmol/L 02/29/2020 7:46 AM TIG WELDER [facility] LABORATORY SERVICES [facility] CHLORIDE 100 98 - 107 mmol/L 02/29/2020 7:46 AM [facility]OR[facility]ORY [facility] CO2 25 22 - 29 mmol/L 02/29/2020 7:46 AM [facility] CALCIUM 9.1 8.6 - 10.2 mg/dL 02/29/2020 7:46 AM [facility]OR[facility]ORY [facility] BUN 10 6 - 20 mg/dL 02/29/2020 7:46 AM [facility]ORATORY [facility] CREATININE 0.51 0.51 - 0.95 mg/dL 02/29/2020 7:46 AM [facility] GLUCOSE 219(H) 74 - 99 mg/dL 02/29/2020 7:46 AM [facility] GFR >60 >=60 mL/min/1.7 3 sq meter 02/29/2020 7:46 AM [facility] Comment: eGFR has not [...] GFR, >60 >=60 mL/min/1.7 3 sq meter 02/29/2020 7:46 AM [facility]ORY [facility] ANION GAP 12 8 - 16 mmol/L 02/29/2020 7:46 AM [facility] Blood Venipuncture / Unknown 02/29/2020 7:05 AM TIG WELDER 02/29/2020 7:09 AM TIG WELDER Karen Thomas MD CHEMISTRY ORDERABLES [facility]# [id number] [address] [facility] [place] [address] * (ABNORMAL) CBC WITH DIFFERENTIAL (02/29/2020 7:05 AM TIG WELDER) [facility] WBC 9.6 4.0 - 9.8 K/uL 02/29/2020 7:18 AM [facility] LABORATORY SERVICES - [facility] RBC 4.13 3.90 - 4.90 M/uL 02/29/2020 7:18 AM [facility] - [facility] HEMOGLOBIN 12.0 11.8 - 14.8 g/dL 02/29/2020 7:18 AM [facility] - [facility] HEMATOCRIT 37.7 35.5 - 44.0 % 02/29/2020 7:18 AM [facility] - [facility] MCV 91.3 82.0 - 99.0 fL 02/29/2020 7:18 AM [facility] - [facility] MCH 29.1 27.2 - 32.6 pg 02/29/2020 7:18 AM [facility] - [facility] MCHC 31.8 31.5 - 35.5 g/dL 02/29/2020 7:18 AM [facility] - [facility] RDW 14.4 11.5 - 14.5 % 02/29/2020 7:18 AM [facility] - [facility] RDW-STDEV 48.1 37.1 - 48.7 fL 02/29/2020 7:18 AM [facility] - [facility] PLATELETS 316 140 - 350 K/uL 02/29/2020 7:18 AM [facility] - [facility] MPV 8.8(L) 9.3 - 12.4 fL 02/29/2020 7:18 AM [facility] - [facility] NEUTROPHILS 65 % 02/29/2020 7:18 AM [facility] - [facility] LYMPHOCYTES 27 % 02/29/2020 7:18 AM [facility]ORY SERVICES - [facility] MONOCYTES 5 % 02/29/2020 7:18 AM [facility] SERVICES - [facility] EOSINOPHILS 1 % 02/29/2020 7:18 AM [facility] SERVICES - [facility] BASOPHILS 1 % 02/29/2020 7:18 AM [facility]ORY SERVICES - [facility] IMMATURE GRANULOCYTES 1 % 02/29/2020 7:18 AM [facility] - [facility] Comment:IG (Immature Granulo cyte) count includes Metamyelocytes, Myelocytes, and Promyelocytes NEUTROPHIL ABSOLUTE 6.25 1.90 - 7.00 K/uL 02/29/2020 7:18 AM [facility] LABORATORY SERVICES - [facility] LYMPHOCYTE ABSOLUTE 2.63 0.70 - 4.50 K/uL 02/29/2020 7:18 AM [facility] - [facility] MONOCYTE ABSOLUTE 0.47 0.10 - 1.30 K/uL 02/29/2020 7:18 AM [facility]ORY [facility] EOSINOPHIL ABSOLUTE 0.09 0.00 - 0.70 K/uL 02/29/2020 7:18 AM TIG WELDER [facility] LABORATORY SERVICES - [facility] BASOPHILS ABSOLUTE 0.05 0.00 - 0.20 K/uL 02/29/2020 7:18 AM [facility] LABORATORY SERVICES - . [facility] IMMATURE GRANULOCYTES ABSOLUTE 0.12(H) 0.00 - 0.03 K/uL 02/29/2020 7:18 AM [facility] LABORATORY SERVICES - [facility] Blood Venipuncture / Unknown 02/29/2020 7:05 AM TIG WELDER 02/29/2020 7:09 AM TIG WELDER Karen Thomas MD HEMATOLOGY ORDERABLE S [facility] CLPA# [id number] [address] [place] [address] * (ABNORMAL) POC GLUCOSE (02/29/2020 4:16 AM TIG WELDER) [facility] GLUCOSE POC 202(H) 74 - 99 mg/dL 02/29/2020 4:16 AM TIG WELDER [facility] LABORATORY SERVICES [facility] CAREER CENTER ADVISOR NAME POC CONNIE BOWLES 02/29/2020 4:16 AM TIG WELDER [employer] SERVICES [facility] Blood, whole 02/29/2020 4:16 AM TIG WELDER 02/29/2020 5:16 AM TIG WELDER Karen Thomas MD POINT OF CARE TESTIN G [facility] CLIA# [id number] [address] [place] [address] * (ABNORMAL) POC GLUCOSE (02/29/2020 12:06 AM TIG WELDER) GLUCOSE POC 231(H) 74 - 99 mg/dL 02/29/2020 12:06 AM TIG WELDER [facility] LABORATORY [facility] CAREER CENTER ADVISOR NAME CONNIE JOHNSON 02/29/2020 12:06 AM TIG WELDER [facility] LABORATORY SERVICES [facility] Blood, whole 02/29/2020 12:0 6 AM TIG WELDER 02/29/2020 12:13 AM TIG WELDER Karen Thomas MD POINT OF CARE TESTIN Maggie [facility] CLPA# [id number] [address] [place] [address] * (ABNORMAL) POC GLUCOSE (02/28/2020 9:20 PM TIG WELDER) GLUCOSE POC 197(H) 74 - 99 mg/dL 02/28/2020 9:20 PM TIG WELDER [facility] LABORATORY [facility] COMMENT, GLU POC Notified RN/ 02/28/2020 9:20 PM TIG WELDER [facility] LABORATORY [facility] CAREER CENTER ADVISOR NAME CONNIE JOHNSON 02/28/2020 9:20 PM [facility] WELDER [facility] Blood, whole 02/28/2020 9:20 PM TIG WELDER 02/28/2020 9:35 PM TIG WELDER Karen Thomas MD POINT OF CARE TESTIN Maggie [facility] CLIA# [id number] [address] [place] [address] * (ABNORMAL) POC GLUCOSE (02/28/2020 4:20 PM TIG WELDER) GLUCOSE POC 170(H) 74 - 99 mg/dL 02/28/2020 4:20 PM [facility]IG WELDER [facility] COMMENT, GLU POC Notified RN/ 02/28/2020 4:20 PM TIG WELDER [facility] LABORATORY [facility] CAREER CENTER ADVISOR NAME POC CLIFFORD JOHNSON (ROSALIO) 02/28/2020 4:20 PM TIG WELDER [facility] LABORATORY [facility] Blood, whole 02/28/2020 4:20 PM TIG WELDER 02/28/2020 4:28 PM TIG WELDER Karen Thomas MD POINT OF CARE TESTIN G Performing Organization Address [facility]/ZIP Co de Phone Number [facility] LABORATORY [facility]# [id number] [address] [place] [address] * (ABNORMAL) POC GLUCOSE (02/28/2020 12:40 PM TIG WELDER) GLUCOSE POC 251(H) 74 - 99 mg/dL 02/28/2020 12:40 PM TIG WELDER [facility] LABORATORY [facility] COMMENT, GLU POC Notified RN/MD 02/28/2020 12:40 PM TIG WELDER [facility] LABORATORY [facility] CAREER CENTER ADVISOR NAME POC CLIFFORD JOHNSON (ROSALIO) 02/28/2020 12:40 PM [facility]IG WELDER [facility] Blood, whole 02/28/2020 12:4 0 PM TIG WELDER 02/28/2020 4:28 PM TIG WELDER Karen Thomas MD POINT OF CARE TESTJERONIMO Performing Organization Address [facility]/ZIP Co de Phone Number [facility]# [id number] [address] [place] [address] * (ABNORMAL) BASIC METABOLIC PANEL (02/28/2020 9:42 AM TIG WELDER) SODIUM 137 136 - 145 mmol/L 02/28/2020 10:39 AM TIG WELDER [facility] LABORATORY SERVICES [facility] POTASSIUM 4.3 3.5 - 5.0 mmol/L 02/28/2020 10:39 AM TIG WELDER [facility] LABORATORY SERVICES [facility] CHLORIDE 101 98 - 107 mmol/L 02/28/2020 10:39 AM TIG WELDER [facility] LABORATORY SERVICES [facility] CO2 28 22 - 29 mmol/L 02/28/2020 10:39 AM TIG WELDER [facility] LABORATORY [facility] CALCIUM 9.1 8.6 - 10.2 mg/dL 02/28/2020 10:39 AM [facility] LABORATORY [facility] BUN 10 6 - 20 mg/dL 02/28/2020 10:[address] [facility] CREATININE 0.55 0.51 - 0.95 mg/dL 02/28/2020 10:39 AM [facility] GLUCOSE 239(H) 74 - 99 mg/dL 02/28/2020 10:39 AM [facility] GFR >60 >=60 mL/min/1.7 3 sq meter 02/28/2020 10:39 AM [facility] [employer] [facility] Comment: eGFR has not [...] GFR, >60 >=60 mL/min/1.7 3 sq meter 02/28/2020 10:39 AM [facility] LABORATORY [facility] ANION GAP 8 8 - 16 mmol/L 02/28/2020 10:39 AM [facility] [employer] [facility] Blood Venipuncture / Unknown 02/28/2020 9:42 AM TIG WELDER 02/28/2020 10:07 AM TIG WELDER Karen Thomas MD CHEMISTRY ORDERABLES [facility] CLIA# [id number] [address] [place] [address] * (ABNORMAL) CBC WITH DIFFERENTIAL (02/28/2020 9:42 AM TIG WELDER) WBC 8.4 4.0 - 9.8 K/uL 02/28/2020 10:19 AM [facility] RBC 4.20 3.90 - 4.90 M/uL 02/28/2020 10:19 AM [facility]ATORY SERVICES [facility] HEMOGLOBIN 12.1 11.8 - 14.8 g/dL 02/28/2020 10:19 AM [facility]ATORY SERVICES [facility] HEMATOCRIT 38.3 35.5 - 44.0 % 02/28/2020 10:19 AM [facility]ATORY SERVICES [facility] MCV 91.2 82.0 - 99.0 fL 02/28/2020 10:19 AM [facility]ATORY [facility] MCH 28.8 27.2 - 32.6 pg 02/28/2020 10:19 AM [facility]AT[facility] SERVICES - [facility] MCHC 31.6 31.5 - 35.5 g/dL 02/28/2020 10:19 AM [facility] RDW 14.5 11.5 - 14.5 % 02/28/2020 10:19 AM [facility] LABORATORY SERVICES - [facility] RDW-STDEV 48.2 37.1 - 48.7 fL 02/28/2020 10:19 AM [facility] LABORATORY SERVICES - [facility] PLATELETS 362(H) 140 - 350 K/uL 02/28/2020 10:19 AM [facility] LABORATORY SERVICES - . [facility] MPV 8.9(L) 9.3 - 12.4 fL 02/28/2020 10:19 AM [facility] LABORATORY SERVICES - . [facility] NEUTROPHILS 65 % 02/28/2020 10:19 AM [facility] - [facility] LYMPHOCYTES 27 % 02/28/2020 10:19 AM [facility]ATORY [facility] MONOCYTES 5 % 02/28/2020 10:19 AM [facility]AT[facility] EOSINOPHILS 1 % 02/28/2020 10:19 AM [facility] BASOPHILS 1 % 02/28/2020 10:19 AM [facility]ORY [facility] IMMATURE GRANULOCYTES 1 % 02/28/2020 10:19 AM [facility]ORATORY SERVICES - [facility] Comment:IG (Immature Granulo cyte) count includes Metamyelocytes, Myelocytes, and Promyelocytes NEUTROPHIL ABSOLUTE 5.44 1.90 - 7.00 K/uL 02/28/2020 10:19 AM [facility]ATORY SERVICES - . [facility] LYMPHOCYTE ABSOLUTE 2.28 0.70 - 4.50 K/uL 02/28/2020 10:19 AM TIG WELDER [facility] LABORATORY SERVICES - . [facility] MONOCYTE ABSOLUTE 0.45 0.10 - 1.30 K/uL 02/28/2020 10:19 AM TIG WELDER [facility] LABORATORY SERVICES [facility] EOSINOPHIL ABSOLUTE 0.09 0.00 - 0.70 K/uL 02/28/2020 10:19 AM TIG WELDER [facility] LABORATORY SERVICES - [facility] BASOPHILS ABSOLUTE 0.05 0.00 - 0.20 K/uL 02/28/2020 10:19 AM TIG WELDER [facility] LABORATORY SERVICES - [facility] IMMATURE GRANULOCYTES ABSOLUTE 0.12(H) 0.00 - 0.03 K/uL 02/28/2020 10:19 AM [facility] LABORATORY SERVICES [facility] Blood Venipuncture / Unknown 02/28/2020 9:42 AM TIG WELDER 02/28/2020 10:07 AM TIG WELDER Karen Thomas MD HEMATOLOGY ORDERABLE S [facility] CLIA# [id number] [address] [place] [address] * (ABNORMAL) POC GLUCOSE (02/28/2020 8:27 AM TIG WELDER) [facility] GLUCOSE POC 200(H) 74 - 99 mg/dL 02/28/2020 8:27 AM [facility] LABORATORY [facility] COMMENT, GLU POC Notified RN/ 02/28/2020 8:27 AM [facility] LABORATORY SERVICES [facility] CAREER CENTER ADVISOR NAME POC CLIFFORD JOHNSON (ROSALIO) 02/28/2020 8:27 AM [facility] LABORATORY SERVICES [facility] Blood, whole 02/28/2020 8:27 AM TIG WELDER 02/28/2020 8:34 AM TIG WELDER Karen Thomas MD POINT OF CARE TESTIN G [facility] CLIA# [id number] [address] [place] [address] * (ABNORMAL) POC GLUCOSE (02/28/2020 4:30 AM TIG WELDER) GLUCOSE POC 206(H) 74 - 99 mg/dL 02/28/2020 4:30 AM TIG WELDER [facility] LABORATORY [facility] CAREER CENTER ADVISOR NAME POC SYLVIE CARROLL 02/28/2020 4:30 AM TIG WELDER [facility] LABORATORY SERVICES [facility] Blood, whole 02/28/2020 4:30 AM TIG WELDER 02/28/2020 4:55 AM TIG WELDER Karen Thomas MD POINT OF CARE TESTIN G Performing Organization Address [facility]/ZIP Co de Phone Number [facility] CLIA# [id number] [address] [place] [address] * (ABNORMAL) POC GLUCOSE (02/28/2020 12:41 AM CDT) GLUCOSE POC 193(H) 74 - 99 mg/dL 02/28/2020 12:41 AM CDT [facility] LABORATORY [facility] CAREER CENTER ADVISOR NAME POC SYLVIE CARROLL 02/28/2020 12:41 AM CDT [facility] LABORATORY [facility] Blood, whole 02/28/2020 12:4 1 AM CDT 02/28/2020 12:58 AM CDT Karen Thomas MD POINT OF CARE TESTJERONIMO Maggie [facility] CLIA# [id number] [address] [place] [place] [address] * (ABNORMAL) POC GLUCOSE (02/27/2020 8:29 PM CDT) GLUCOSE POC 231(H) 74 - 99 mg/dL 02/27/2020 8:29 PM CDT [facility] LABORATORY [facility] CAREER CENTER ADVISOR NAME POC SYLVIE CARROLL 02/27/2020 8:29 PM CDT [facility] LABORATORY SERVICES [facility] Blood, whole 02/27/2020 8:29 PM CDT 02/27/2020 8:54 PM CDT Karen Thomas MD POINT OF CARE TESTIN Maggie [facility] CLIA# [id number] [address] [place] [address] * (ABNORMAL) POC GLUCOSE (02/27/2020 4:32 PM CDT) GLUCOSE POC 193(H) 74 - 99 mg/dL 02/27/2020 4:32 PM CDT [facility] LABORATORY [facility] CAREER CENTER ADVISOR NAME POC HARVEY LITTLEJOHN (ELI) 02/27/2020 4:32 PM CDT [facility] LABORATORY [facility] Blood, whole 02/27/2020 4:32 PM CDT 02/27/2020 4:40 PM CDT Karen Thomas MD POINT OF CARE TESTJERONIMO Maggie Performing Organization Address [facility]/ZIP Co de Phone Number [facility] CLIA# [id number] [address] [place], [place] [address] * (ABNORMAL) POC GLUCOSE (02/27/2020 12:17 PM CDT) GLUCOSE POC 158(H) 74 - 99 mg/dL 02/27/2020 12:17 PM CDT [facility] LABORATORY [facility] CAREER CENTER ADVISOR NAME POC SHEREEN FLORES 02/27/2020 12:17 PM CDT [facility] Blood, whole 02/27/2020 12:1 7 PM CDT 02/27/2020 12:27 PM CDT Karen Thomas MD POINT OF CARE TESTIN Maggie [facility] CLIA# [id number] [address] [place] [address] * (ABNORMAL) CBC WITH DIFFERENTIAL (02/27/2020 8:42 AM CDT) [facility] WBC 7.2 4.0 - 9.8 K/uL 02/27/2020 9:58 AM CDT [facility] RBC 3.79(L) 3.90 - 4.90 M/uL 02/27/2020 9:58 AM CDT [facility] HEMOGLOBIN 11.2(L) 11.8 - 14.8 g/dL 02/27/2020 9:58 AM CDT [facility] HEMATOCRIT 35.1(L) 35.5 - 44.0 % 02/27/2020 9:58 AM CDT [facility] MCV 92.6 82.0 - 99.0 fL 02/27/2020 9:58 AM CDT [facility] MCH 29.6 27.2 - 32.6 pg 02/27/2020 9:58 AM CDT [facility] MCHC 31.9 31.5 - 35.5 g/dL 02/27/2020 9:58 AM CDT [facility] RDW 14.6(H) 11.5 - 14.5 % 02/27/2020 9:58 AM CDT [facility] RDW-STDEV 49.6(H) 37.1 - 48.7 fL 02/27/2020 9:58 AM CDT [facility] PLATELETS 315 140 - 350 K/uL 02/27/2020 9:58 AM CDT [facility] MPV 9.0(L) 9.3 - 12.4 fL 02/27/2020 9:58 AM CDT [facility] NEUTROPHILS 58 % 02/27/2020 9:58 AM CDT [facility] - . [facility] LYMPHOCYTES 32 % 02/27/2020 9:58 AM CDT [facility] - . [facility] MONOCYTES 7 % 02/27/2020 9:58 AM CDT [facility] - . [facility] EOSINOPHILS 1 % 02/27/2020 9:58 AM CDT [facility] - . [facility] BASOPHILS 1 % 02/27/2020 9:58 AM CDT [facility] - . [facility] IMMATURE GRANULOCYTES 1 % 02/27/2020 9:58 AM CDT [facility] Comment:IG (Immature Granulo cyte) count includes Metamyelocytes, Myelocytes, and Promyelocytes NEUTROPHIL ABSOLUTE 4.16 1.90 - 7.00 K/uL 02/27/2020 9:58 AM CDT [facility] LYMPHOCYTE ABSOLUTE 2.29 0.70 - 4.50 K/uL 02/27/2020 9:58 AM CDT [facility] MONOCYTE ABSOLUTE 0.50 0.10 - 1.30 K/uL 02/27/2020 9:58 AM CDT [facility] - . [facility] EOSINOPHIL ABSOLUTE 0.08 0.00 - 0.70 K/uL 02/27/2020 9:58 AM CDT [facility] - . [facility] BASOPHILS ABSOLUTE 0.04 0.00 - 0.20 K/uL 02/27/2020 9:58 AM CDT [facility] LABORATORY SERVICES [facility] IMMATURE GRANULOCYTES ABSOLUTE 0.08(H) 0.00 - 0.03 K/uL 02/27/2020 9:58 AM CDT [facility] LABORATORY [facility] Blood Venipuncture / Unknown 02/27/2020 8:42 AM CDT 02/27/2020 9:36 AM CDT Karen Thomas MD HEMATOLOGY ORDERABLE S [facility] CLIA# [id number] [address] [place] [address] * PHOSPHORUS (02/27/2020 8:42 AM CDT) PHOSPHORUS 2.5 2.5 - 4.5 mg/dL 02/27/2020 10:27 AM CDT [facility] Blood Venipuncture / Unknown 02/27/2020 8:42 AM CDT 02/27/2020 9:36 AM CDT Karen Thomas MD CHEMISTRY ORDERABLES [facility] CLIA# [id number] [address] [place] [address] * MAGNESIUM LEVEL (02/27/2020 8:42 AM CDT) MAGNESIUM 1.8 1.6 - 2.6 mg/dL 02/27/2020 10:27 AM CDT [facility] Blood Venipuncture / Unknown 02/27/2020 8:42 AM CDT 02/27/2020 9:36 AM CDT Karen Thomas MD CHEMISTRY ORDERABLES [facility] CLIA# [id number] [address] [place] [address] * (ABNORMAL) BASIC METABOLIC PANEL (02/27/2020 8:42 AM CDT) Pathologist [facility] SODIUM 136 136 - 145 mmol/L 02/27/2020 10:27 AM CDT [facility] LABORATORY [facility] POTASSIUM 3.8 3.5 - 5.0 mmol/L 02/27/2020 10:27 AM T [facility] LABORATORY [facility] CHLORIDE 102 98 - 107 mmol/L 02/27/2020 10:27 AM T [facility] LABORATORY [facility] CO2 27 22 - 29 mmol/L 02/27/2020 10:27 AM T [facility] LABORATORY [facility] CALCIUM 8.2(L) 8.6 - 10.2 mg/dL 02/27/2020 10:27 AM T [facility] LABORATORY [facility] BUN 6 6 - 20 mg/dL 02/27/2020 10:27 AM T [facility] LABORATORY SERVICES [facility] CREATININE 0.50(L) 0.51 - 0.95 mg/dL 02/27/2020 10:27 AM T [facility] GLUCOSE 240(H) 74 - 99 mg/dL 02/27/2020 10:27 AM T [facility] LABORATORY SERVICES [facility] GFR >60 >=60 mL/min/1.7 3 sq meter 02/27/2020 10:27 AM T [facility] LABORATORY [facility] Comment: eGFR has not [...] GFR, >60 >=60 mL/min/1.7 3 sq meter 02/27/2020 10:27 AM CDT [facility] ANION GAP 7(L) 8 - 16 mmol/L 02/27/2020 10:27 AM CDT [facility] Blood Venipuncture / Unknown 02/27/2020 8:42 AM CDT 02/27/2020 9:36 AM CDT Karen Thomas MD CHEMISTRY ORDERABLES [facility] CLIA# [id number] [address] [place] [address] * (ABNORMAL) POC GLUCOSE (02/27/2020 8:23 AM CDT) [facility] GLUCOSE POC 199(H) 74 - 99 mg/dL 02/27/2020 8:23 AM CDT [facility] CAREER CENTER ADVISOR NAME POC FLORES SHEREEN 02/27/2020 8:23 AM CDT [facility] Blood, whole 02/27/2020 8:23 AM CDT 02/27/2020 8:50 AM CDT Karen Thomas MD POINT OF CARE TESTIN G [facility] CLIA# [id number] [address] [place] [address] * (ABNORMAL) POC GLUCOSE (02/27/2020 5:17 AM CDT) GLUCOSE POC 177(H) 74 - 99 mg/dL 02/27/2020 5:17 AM CDT [facility] CAREER CENTER ADVISOR NAME POC SCHUYLER CHADWICK 02/27/2020 5:17 AM CDT [facility] Blood, whole 02/27/2020 5:17 AM CDT 02/27/2020 5:36 AM CDT Karen Thomas MD POINT OF CARE TESTIN G [facility] CLIA# [id number] [address] [address] * CT ABDOMEN PELVIS W CONTRAST (02/26/2020 10:25 PM CDT) Anatomical Region Laterality Modality Abdomen Computed Tomogra phy 02/26/2020 10:3 0 PM CDT Impressions 02/26/2020 10:37 PM CDT IMPRESSION: Trace right pleural effusion and bibasilar atelectasis. Residual peripancreatic infiltrative change, improved from prior examination. Hypodense pancreatic tail lesion again noted, likely pseudocyst in the setting of pancreatitis. DICTATION LOCATION: Location 1 - [facility] Narrative 02/26/2020 10:[address] ABDOMEN PELVIS W CONTRAST DATE: 02/26/2020 10:25 PM CLINICAL INFORMATION: Left upper quadrant pain COMPARISON: CT abdomen and pelvis 02/15/2020 PROCEDURE: Axial images were obtained from the lung bases through the ischial tuberosities following the administration of intravenous contrast. Oral contrast was not administered. Multiplanar reformatted images were reviewed. The examination was performed with the adjustment of mA according to the patient size and/or the use of Iterative 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 ?? FINDINGS: LOWER CHEST: Trace right pleural effusion and bibasilar atelectasis. LIVER: Within normal limits GALLBLADDER: Within normal limits. BILE DUCTS: Within normal limits. PANCREAS: Mild residual peripancreatic infiltrative change. Hypodense pancreatic tail lesion again noted. SPLEEN: Within normal limits. ADRENALS: Within normal limits. KIDNEYS/URETERS: Congenital left renal malrotation. BLADDER: Within normal limits. REPRODUCTIVE ORGANS: Hysterectomy. BOWEL/MESENTERY: No bowel obstruction or wall thickening. Appendix not visualized. Enteric tube in the proximal jejunum. PERITONEUM/RETROPERITONEUM: Trace pelvic ascites. No free air. No significant lymphadenopathy. VESSELS: Aortic and iliac artery calcifications. ABDOMINAL WALL: Within normal limits. BONES: Degenerative spine changes. Procedure Note Aime Hsieh MD - 02/26/2020 CT ABDOMEN PELVIS W CONTRAST DATE: 02/26/2020 10:25 PM CLINICAL INFORMATION: Left upper quadrant pain COMPARISON: CT abdomen and pelvis 02/15/2020 PROCEDURE: Axial images were obtained from the lung bases through the ischial tuberosities following the administration of intravenous contrast. Oral contrast was not administered. Multiplanar reformatted images were reviewed. The examination was performed with the adjustment of mA according to the patient size and/or the use of Iterative 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 FINDINGS: LOWER CHEST: Trace right pleural effusion and bibasilar atelectasis. LIVER: Within normal limits GALLBLADDER: Within normal limits. BILE DUCTS: Within normal limits. PANCREAS: Mild residual peripancreatic infiltrative change. Hypodense pancreatic tail lesion again noted. SPLEEN: Within normal limits. ADRENALS: Within normal limits. KIDNEYS/URETERS: Congenital left renal malrotation. BLADDER: Within normal limits. REPRODUCTIVE ORGANS: Hysterectomy. BOWEL/MESENTERY: No bowel obstruction or wall thickening. Appendix not visualized. Enteric tube in the proximal jejunum. PERITONEUM/RETROPERITONEUM: Trace pelvic ascites. No free air. No significant lymphadenopathy. VESSELS: Aortic and iliac artery calcifications. ABDOMINAL WALL: Within normal limits. BONES: Degenerative spine changes. IMPRESSION: Trace right pleural effusion and bibasilar atelectasis. Residual peripancreatic infiltrative change, improved from prior examination. Hypodense pancreatic tail lesion again noted, likely pseudocyst in the setting of pancreatitis. DICTATION LOCATION: Location 1 - [facility] Hedy MANN CT ORDERABLES * (ABNORMAL) POC GLUCOSE (02/26/2020 9:44 PM CDT) GLUCOSE POC 214(H) 74 - 99 mg/dL 02/26/2020 9:44 PM CDT [facility] CAREER CENTER ADVISOR NAME POC SCHUYLER CHADWICK 02/26/2020 9:44 PM CDT [facility] LABORAT[facility] SERVICES [facility] Blood, whole 02/26/2020 9:44 PM CDT 02/27/2020 3:04 AM CDT Karen Thomas MD POINT OF CARE TESTJERONIMO G [facility] LABORATORY [facility] CLIA# [id number] [address] [place] [address] * (ABNORMAL) POC GLUCOSE (02/26/2020 6:15 PM CDT) GLUCOSE POC 171(H) 74 - 99 mg/dL 02/26/2020 6:15 PM CDT [facility] LAB[facility]AT[facility] SERVICES [facility] CAREER CENTER ADVISOR NAME POC GRACIE BRAXTON 02/26/2020 6:15 PM CDT [facility] LABORATORY SERVICES [facility] Blood, whole 02/26/2020 6:15 PM CDT 02/26/2020 8:11 PM CDT Karen Thomas MD POINT OF CARE TESTJERONIMO Maggie Performing Organization Address City/[facility]/ZIP Co de Phone Number [facility] CLIA# [id number] [address] [place] [address] * (ABNORMAL) POC GLUCOSE (02/26/2020 12:55 PM CDT) GLUCOSE POC 123(H) 74 - 99 mg/dL 02/26/2020 12:55 PM CDT [facility] LAB[facility] SERVICES [facility] CAREER CENTER ADVISOR NAME POC SHARYN STANLEY 02/26/2020 12:55 PM CDT [facility] LABORATORY SERVICES [facility] Blood, whole 02/26/2020 12:5 5 PM CDT 02/26/2020 1:10 PM CDT Karen Thomas MD POINT OF CARE TESTJERONIMO Serrano [facility] LABORATORY SERVICES - [facility]# [id number] [address] [place] [address] * (ABNORMAL) POC GLUCOSE (02/26/2020 9:37 AM CDT) GLUCOSE POC 182(H) 74 - 99 mg/dL 02/26/2020 9:37 AM CDT [facility] CAREER CENTER ADVISOR NAME POC SHEREEN FLORES 02/26/2020 9:37 AM CDT [facility] Blood, whole 02/26/2020 9:37 AM CDT 02/26/2020 9:53 AM CDT Karen Thomas MD POINT OF CARE TESTIN G Performing Organization Address [facility] Co de Phone Number [facility]# [id number] [address] [place] [address] * PHOSPHORUS (02/26/2020 7:11 AM CDT) [facility] PHOSPHORUS 2.8 2.5 - 4.5 mg/dL 02/26/2020 7:55 AM CDT [facility] Blood Venipuncture / Unknown 02/26/2020 7:11 AM CDT 02/26/2020 7:22 AM CDT Karen Thomas MD CHEMISTRY ORDERABLES Performing Organization Address City/[facility]/ZIP Co de Phone Number [facility]# [id number] [address] [place] [address] * MAGNESIUM LEVEL (02/26/2020 7:11 AM CDT) MAGNESIUM 1.6 1.6 - 2.6 mg/dL 02/26/2020 7:55 AM CDT [facility] Blood Venipuncture / Unknown 02/26/2020 7:11 AM CDT 02/26/2020 7:22 AM CDT Karen Thomas MD CHEMISTRY ORDERABLES [facility] LABORATORY [facility]# [id number] [address] [place] [address] * (ABNORMAL) BASIC METABOLIC PANEL (02/26/2020 7:11 AM CDT) SODIUM 142 136 - 145 mmol/L 02/26/2020 7:55 AM T [facility] LABORATORY [facility] POTASSIUM 3.3(L) 3.5 - 5.0 mmol/L 02/26/2020 7:55 AM T [facility] CHLORIDE 106 98 - 107 mmol/L 02/26/2020 7:55 AM T [facility] CO2 27 22 - 29 mmol/L 02/26/2020 7:55 AM T [facility] CALCIUM 8.6 8.6 - 10.2 mg/dL 02/26/2020 7:55 AM T [facility] LABORATORY [facility] BUN 4(L) 6 - 20 mg/dL 02/26/2020 7:55 AM T [facility] CREATININE 0.52 0.51 - 0.95 mg/dL 02/26/2020 7:55 AM T [facility] GLUCOSE 178(H) 74 - 99 mg/dL 02/26/2020 7:55 AM T [facility] GFR >60 >=60 mL/min/1.7 3 sq meter 02/26/2020 7:55 AM T [facility] LABORATORY [facility] Comment: eGFR has not [...] GFR, >60 >=60 mL/min/1.7 3 sq meter 02/26/2020 7:55 AM CDT [facility] LABORATORY [facility] ANION GAP 9 8 - 16 mmol/L 02/26/2020 7:55 AM CDT [facility] LABORATORY [facility] Blood Venipuncture / Unknown 02/26/2020 7:11 AM CDT 02/26/2020 7:22 AM CDT Karen Thomas MD CHEMISTRY ORDERABLES Performing Organization Address [facility] Co de Phone Number [facility]# [id number] [address] [place] [address] * (ABNORMAL) POC GLUCOSE (02/26/2020 4:01 AM CDT) GLUCOSE POC 160(H) 74 - 99 mg/dL 02/26/2020 4:01 AM CDT [facility] CAREER CENTER ADVISOR NAME PETRONA MORAN 02/26/2020 4:01 AM CDT [facility] Blood, whole 02/26/2020 4:01 AM CDT 02/26/2020 4:16 AM CDT Karen Thomas MD POINT OF CARE TESTJERONIMO Serrano Performing Organization Address [facility] Co de Phone Number [facility]# [id number] [address] [place] [address] * (ABNORMAL) POC GLUCOSE (02/25/2020 11:40 PM CDT) GLUCOSE POC 173(H) 74 - 99 mg/dL 02/25/2020 11:40 PM CDT [facility] LABORATORY [facility] CAREER CENTER ADVISOR NAME PETRONA MORAN 02/25/2020 11:40 PM CDT [facility] LABORATORY [facility] Blood, whole 02/25/2020 11:4 0 PM CDT 02/25/2020 11:51 PM CDT Karen Thomas MD POINT OF CARE FLY Serrano Performing Organization Address [facility]/ZIP Co de Phone Number [facility] [id number] [address] [place] [address] * (ABNORMAL) POC GLUCOSE (02/25/2020 10:05 PM CDT) GLUCOSE POC 176(H) 74 - 99 mg/dL 02/25/2020 10:05 PM CDT [facility] LABORATORY [facility] CAREER CENTER ADVISOR NAME POC GENOVEVA NOLAN 02/25/2020 10:05 PM CDT [facility] LABORATORY [facility] Blood, whole 02/25/2020 10:0 5 PM CDT 02/25/2020 10:17 PM CDT Karen Thomas MD POINT OF CARE TESTJERONIMO Maggie Performing Organization Address [facility] Co de Phone Number [facility] LABORATORY [facility] CLIA# [id number] [address] [place] [address] * (ABNORMAL) POC GLUCOSE (02/25/2020 6:11 PM CDT) GLUCOSE POC 180(H) 74 - 99 mg/dL 02/25/2020 6:11 PM CDT [facility] LABORATORY [facility] COMMENT, GLU POC Notified RN/MD 02/25/2020 6:11 PM CDT [facility] LABORATORY [facility] CAREER CENTER ADVISOR NAME POC CATARINO (BRANDEE- LATOSHA)JEFF 02/25/2020 6:11 PM CDT [facility] LABORATORY SERVICES [facility] Blood, whole 02/25/2020 6:11 PM CDT 02/25/2020 6:20 PM CDT Karen Thomas MD POINT OF CARE TESTJERONIMO Maggie Performing Organization Address City/[facility]/ZIP Co de Phone Number [facility] LABORATORY [facility] CLIA# [id number] [address] [place] [address] * POC GLUCOSE (02/25/2020 12:29 PM CDT) GLUCOSE POC 97 74 - 99 mg/dL 02/25/2020 12:29 PM CDT [facility] LABORATORY [facility] COMMENT, GLU POC Notified RN/MD 02/25/2020 12:29 PM CDT [facility] LABORATORY [facility] CAREER CENTER ADVISOR NAME OLLIE TORIBIO (PN- LATOSHA)JEFF 02/25/2020 12:29 PM CDT [facility] LABORATORY [facility] Blood, whole 02/25/2020 12:2 9 PM CDT 02/25/2020 1:40 PM CDT Karen Thomas MD POINT OF CARE TESTIN G [facility] [id number] [address] [facility] [place] [address] * XR FLUORO NG TUBE PLACEMENT SI (02/25/2020 11:00 AM CDT) Anatomical Region Laterality Modality Abdomen Computed Radiogr aphy 02/25/2020 11:0 1 AM CDT Impressions 02/25/2020 11:22 AM CDT IMPRESSION: The Corpak feeding tube was advanced using fluoroscopic guidance. At the end of the procedure, the distal end of the Corpak feeding tube was at the level of the duodenal jejunal junction. FLUOROSCOPY TIME IN MINUTES: ??.23. DICTATION LOCATION: Location 1 - [facility] Narrative 02/25/2020 11:22 AM CDT XR FLUORO NG TUBE PLACEMENT SI DATE: ??02/25/2020 11:00 AM HISTORY: Tube Placement. ?? Acute on chronic pancreatitis; Acute on chronic pancreatitis; History of plasmapheresis; Chylomicronemia syndrome; Type 2 diabetes mellitus without complication, with long-term current use of insulin; Type 2 diabetes mellitus without complication, with long-term current use of insulin; Hypertriglyceridemia COMPARISON: 02/24/2020 REFERENCE AIR KERMA DOSE: 11.97 mGy. NUMBER OF FLUOROSCOPIC IMAGES: 1 FINDINGS: The patient arrived in the radiology department with a Corpak feeding tube with the distal end in the midportion of the stomach. The feeding tube was advanced without difficulty using fluoroscopic guidance. After advancement of the feeding tube, the distal end of the feeding tube was at the duodenal jejunal junction. The tube was secured in place and the patient returned to the floor in good condition. INCIDENTAL FINDINGS: ??None. Procedure Note Nora Saravia MD - 02/25/2020 XR FLUORO NG TUBE PLACEMENT SI DATE: 02/25/2020 11:00 AM HISTORY: Tube Placement. Acute on chronic pancreatitis; Acute on chronic pancreatitis; History of plasmapheresis; Chylomicronemia syndrome; Type 2 diabetes mellitus without complication, with long-term current use of insulin; Type 2 diabetes mellitus without complication, with long-term current use of insulin; Hypertriglyceridemia COMPARISON: 02/24/2020 REFERENCE AIR KERMA DOSE: 11.97 mGy. NUMBER OF FLUOROSCOPIC IMAGES: 1 FINDINGS: The patient arrived in the radiology department with a Corpak feeding tube with the distal end in the midportion of the stomach. The feeding tube was advanced without difficulty using fluoroscopic guidance. After advancement of the feeding tube, the distal end of the feeding tube was at the duodenal jejunal junction. The tube was secured in place and the patient returned to the floor in good condition. INCIDENTAL FINDINGS: None. IMPRESSION: The Corpak feeding tube was advanced using fluoroscopic guidance. At the end of the procedure, the distal end of the Corpak feeding tube was at the level of the duodenal jejunal junction. FLUOROSCOPY TIME IN MINUTES: .23. DICTATION LOCATION: Location 1 - [facility] Karen Thomas MD DIAGNOSTIC IMAGING O RDERABLES * POC GLUCOSE (02/25/2020 9:11 AM CDT) GLUCOSE POC 94 74 - 99 mg/dL 02/25/2020 9:11 AM CDT [facility] LABORATORY [facility] COMMENT, GLU POC Notified RN/ 02/25/2020 9:11 AM CDT [facility] LABORATORY [facility] CAREER CENTER ADVISOR NAME OLLIE KELLER)JEFF 02/25/2020 9:11 AM CDT [facility] LABORATORY [facility] Blood, whole 02/25/2020 9:11 AM CDT 02/25/2020 9:53 AM CDT Karen Thomas MD POINT OF CARE TESTIN G Performing Organization Address [facility]/State/ZIP Co de Phone Number [facility] LABORATORY [facility]# [id number] [address] [place] [address] * XR ABDOMEN FOR FEEDING TUBE 1 VW (02/25/2020 8:42 AM CDT) Anatomical Region Laterality Modality Abdomen Computed Radiogr aphy 02/25/2020 8:42 AM CDT Impressions 02/25/2020 8:51 AM CDT FINDINGS/IMPRESSION: An enteric tube with a weighted tip is seen with the tip over the mid stomach. Upper approach central lines terminate over the upper right atrium. Left basilar airspace disease similar to previous, lungs incompletely assessed. DICTATION LOCATION: Location [address] [place] [address] Narrative 02/25/2020 8:51 AM CDT EXAMINATION: XR ABDOMEN FOR FEEDING TUBE 1 VW DATE: 02/25/2020 8:42 AM HISTORY: ??Cor Marcellus Placement. . Acute on chronic pancreatitis; Acute on chronic pancreatitis; History of plasmapheresis; Chylomicronemia syndrome; Type 2 diabetes mellitus without complication, with long-term current use of insulin; Type 2 diabetes mellitus without complication, with long-term current use of insulin; Hypertriglyceridemia. COMPARISON: 02/24/2020 Procedure Note Ceasar Izaguirre MD - 02/25/2020 EXAMINATION: XR ABDOMEN FOR FEEDING TUBE 1 VW DATE: 02/25/2020 8:42 AM HISTORY: Cor Marcellus Placement. . Acute on chronic pancreatitis; Acute on chronic pancreatitis; History of plasmapheresis; Chylomicronemia syndrome; Type 2 diabetes mellitus without complication, with long-term current use of insulin; Type 2 diabetes mellitus without complication, with long-term current use of insulin; Hypertriglyceridemia. COMPARISON: 02/24/2020 FINDINGS/IMPRESSION: An enteric tube with a weighted tip is seen with the tip over the mid stomach. Upper approach central lines terminate over the upper right atrium. Left basilar airspace disease similar to previous, lungs incompletely assessed. DICTATION LOCATION: Location [address] [place] [address] Karen Thomas MD DIAGNOSTIC IMAGING O RDERABLES * (ABNORMAL) TRIGLYCERIDE (02/25/2020 6:35 AM CDT) TRIGLYCERIDE 300(H) <150 mg/dL 02/25/2020 7:45 AM CDT [facility] Blood Venipuncture / Unknown 02/25/2020 6:35 AM CDT 02/25/2020 7:07 AM CDT Narrative [facility] - 02/25/2020 7:45 AM CDT TRIGLYCERIDES ? mg/dL Normal ?< 150 Borderline High ?150 - 199 High ? 200 - 499 Very High ? >= 500 Based on AHA/NCEP Guidelines. Karen Thomas MD CHEMISTRY ORDERABLES Performing Organization Address [facility]/ZIP Co de Phone Number [facility] CLIA# [id number] [address] [place] [address] * PHOSPHORUS (02/25/2020 6:35 AM CDT) Pathologist [facility] PHOSPHORUS 3.1 2.5 - 4.5 mg/dL 02/25/2020 7:45 AM CDT [facility] Blood Venipuncture / Unknown 02/25/2020 6:35 AM CDT 02/25/2020 7:07 AM CDT Karen Thomas MD CHEMISTRY ORDERABLES Performing Organization Address City/[facility]/ZIP Co de Phone Number [facility] [id number] [address] [place] [address] * MAGNESIUM LEVEL (02/25/2020 6:35 AM CDT) MAGNESIUM 1.7 1.6 - 2.6 mg/dL 02/25/2020 7:45 AM CDT [facility] Blood Venipuncture / Unknown 02/25/2020 6:35 AM CDT 02/25/2020 7:07 AM CDT Karen Thomas MD CHEMISTRY ORDERABLES [facility] LABORATORY SERVICES [facility]# [id number] [address] [place] [address] * (ABNORMAL) BASIC METABOLIC PANEL (02/25/2020 6:35 AM CDT) [facility] SODIUM 140 136 - 145 mmol/L 02/25/2020 7:45 AM T [facility] LABORATORY [facility] POTASSIUM 3.5 3.5 - 5.0 mmol/L 02/25/2020 7:45 AM T [facility] LABORATORY [facility] CHLORIDE 105 98 - 107 mmol/L 02/25/2020 7:45 AM T [facility] CO2 25 22 - 29 mmol/L 02/25/2020 7:45 AM [facility] CALCIUM 8.4(L) 8.6 - 10.2 mg/dL 02/25/2020 7:45 AM T [facility] BUN 6 6 - 20 mg/dL 02/25/2020 7:45 AM [facility] CREATININE 0.53 0.51 - 0.95 mg/dL 02/25/2020 7:45 AM [facility] GLUCOSE 126(H) 74 - 99 mg/dL 02/25/2020 7:45 AM [facility] GFR >60 >=60 mL/min/1.7 3 sq meter 02/25/2020 7:45 AM T [facility] LABORATORY [facility] Comment: eGFR has not [...] GFR, >60 >=60 mL/min/1.7 3 sq meter 02/25/2020 7:45 AM CDT [facility] LABORATORY SERVICES [facility] ANION GAP 10 8 - 16 mmol/L 02/25/2020 7:45 AM CDT [facility] LABORATORY SERVICES [facility] Blood Venipuncture / Unknown 02/25/2020 6:35 AM CDT 02/25/2020 7:07 AM CDT Karen Thomas MD CHEMISTRY ORDERABLES Performing Organization Address [facility] Co de Phone Number [facility]# [id number] [address] [place] [address] * (ABNORMAL) POC GLUCOSE (02/25/2020 4:07 AM CDT) GLUCOSE POC 114(H) 74 - 99 mg/dL 02/25/2020 4:07 AM CDT [facility] CAREER CENTER ADVISOR NAME POC ZABRINA MURRYHERINE 02/25/2020 4:07 AM CDT [facility] Blood, whole 02/25/2020 4:07 AM CDT 02/25/2020 4:21 AM CDT Karen Thomas MD POINT OF CARE TESTIN G Performing Organization Address [facility] Co de Phone Number [facility]# [id number] [address] [place] [address] * (ABNORMAL) POC GLUCOSE (02/25/2020 12:38 AM CDT) GLUCOSE POC 150(H) 74 - 99 mg/dL 02/25/2020 12:38 AM CDT [facility] LAB[facility]ATORY [facility] CAREER CENTER ADVISOR NAME POC LOVELYZABRINA JERNIGANHERINE 02/25/2020 12:38 AM CDT [facility] LABORATORY SERVICES [facility] Blood, whole 02/25/2020 12:3 8 AM CDT 02/25/2020 1:57 AM CDT Karen Thomas MD POINT OF CARE FLY Maggie Performing Organization Address City/[facility]/ZIP Co de Phone Number [facility] CLIA# [id number] [address] [place] [address] * (ABNORMAL) POC GLUCOSE (02/24/2020 9:44 PM CDT) GLUCOSE POC 169(H) 74 - 99 mg/dL 02/24/2020 9:44 PM CDT [facility] LABORATORY [facility] CAREER CENTER ADVISOR NAME POC LOVELYNASRINMARLEN 02/24/2020 9:44 PM CDT [facility] LABORATORY [facility] Blood, whole 02/24/2020 9:44 PM CDT 02/24/2020 9:56 PM CDT Karen Thomas MD POINT OF CARE FLY Maggie Performing Organization Address [facility] Co de Phone Number [facility] CLIA# [id number] [address] [place] [address] * (ABNORMAL) POC GLUCOSE (02/24/2020 5:09 PM CDT) GLUCOSE POC 128(H) 74 - 99 mg/dL 02/24/2020 5:09 PM CDT [facility] LABORATORY SERVICES [facility] COMMENT, GLU POC Notified RN/MD 02/24/2020 5:09 PM CDT [facility] LABORATORY SERVICES [facility] CAREER CENTER ADVISOR NAME POC CATARINO (PN- LATOSHA)JEFF 02/24/2020 5:09 PM CDT [facility] LABORATORY [facility] Blood, whole 02/24/2020 5:09 PM CDT 02/24/2020 5:20 PM CDT Karen Thomas MD POINT OF CARE FLY Maggie Performing Organization Address [facility]/ZIP Co de Phone Number [facility] [id number] [address] [place] [address] * (ABNORMAL) CBC WITH DIFFERENTIAL (02/24/2020 2:36 PM CDT) [facility] WBC 7.1 4.0 - 9.8 K/uL 02/24/2020 2:55 PM CDT [facility] RBC 4.39 3.90 - 4.90 M/uL 02/24/2020 2:55 PM CDT [facility] HEMOGLOBIN 12.8 11.8 - 14.8 g/dL 02/24/2020 2:55 PM CDT [facility] HEMATOCRIT 39.3 35.5 - 44.0 % 02/24/2020 2:55 PM CDT [facility] MCV 89.5 82.0 - 99.0 fL 02/24/2020 2:55 PM CDT [facility] MCH 29.2 27.2 - 32.6 pg 02/24/2020 2:55 PM CDT [facility] MCHC 32.6 31.5 - 35.5 g/dL 02/24/2020 2:55 PM CDT [facility] RDW 14.8(H) 11.5 - 14.5 % 02/24/2020 2:55 PM CDT [facility] RDW-STDEV 48.9(H) 37.1 - 48.7 fL 02/24/2020 2:55 PM CDT [facility] - [facility] PLATELETS 365(H) 140 - 350 K/uL 02/24/2020 2:55 PM CDT [facility] MPV 8.7(L) 9.3 - 12.4 fL 02/24/2020 2:55 PM CDT [facility] NEUTROPHILS 58 % 02/24/2020 2:55 PM CDT [facility] LYMPHOCYTES 33 % 02/24/2020 2:55 PM CDT [facility] MONOCYTES 6 % 02/24/2020 2:55 PM CDT [facility] EOSINOPHILS 1 % 02/24/2020 2:55 PM CDT [facility] BASOPHILS 0 % 02/24/2020 2:55 PM CDT [facility] LABORATORY [facility] IMMATURE GRANULOCYTES 2 % 02/24/2020 2:55 PM CDT [facility] LABORATORY [facility] - [facility] Comment:IG (Immature Granulo cyte) count includes Metamyelocytes, Myelocytes, and Promyelocytes NEUTROPHIL ABSOLUTE 4.11 1.90 - 7.00 K/uL 02/24/2020 2:55 PM CDT [facility] LABORATORY [facility] - [facility] LYMPHOCYTE ABSOLUTE 2.33 0.70 - 4.50 K/uL 02/24/2020 2:55 PM CDT [facility] LABORATORY [facility] - [facility] MONOCYTE ABSOLUTE 0.44 0.10 - 1.30 K/uL 02/24/2020 2:55 PM CDT [facility] LABORATORY SERVICES - . [facility] EOSINOPHIL ABSOLUTE 0.08 0.00 - 0.70 K/uL 02/24/2020 2:55 PM CDT [facility] LABORATORY [facility] - [facility] BASOPHILS ABSOLUTE 0.03 0.00 - 0.20 K/uL 02/24/2020 2:55 PM CDT [facility] LABORATORY [facility] - [facility] IMMATURE GRANULOCYTES ABSOLUTE 0.11(H) 0.00 - 0.03 K/uL 02/24/2020 2:55 PM CDT [facility] LABORATORY [facility] Blood Venipuncture / Unknown 02/24/2020 2:36 PM CDT 02/24/2020 2:42 PM CDT Karen Thomas MD HEMATOLOGY ORDERABLE S [facility]# [id number] [address] [facility] [place] [place] [address] * POC GLUCOSE (02/24/2020 12:57 PM CDT) GLUCOSE POC 83 74 - 99 mg/dL 02/24/2020 12:57 PM CDT [facility] LABORATORY [facility] COMMENT, GLU POC Notified RN/ 02/24/2020 12:57 PM CDT [facility] LABORATORY SERVICES [facility] CAREER CENTER ADVISOR NAME POC JEFF TORIBIO (PN- WATKINS) 02/24/2020 12:57 PM CDT [facility] LABORATORY [facility] Blood, whole 02/24/2020 12:5 7 PM CDT 02/24/2020 1:05 PM CDT Karen Thomas MD POINT OF CARE FLY Serrano [facility] LABORATORY SERVICES [facility] CLIA# [id number] [address] [place] [address] * XR FLUORO NG TUBE PLACEMENT SI (02/24/2020 11:33 AM CDT) Anatomical Region Laterality Modality Abdomen Computed Radiogr aphy 02/24/2020 11:3 3 AM CDT Impressions 02/24/2020 12:19 PM CDT IMPRESSION: The Corpak feeding tube was advanced to the level of the duodenal jejunal junction. FLUOROSCOPY TIME IN MINUTES: ??.6. DICTATION LOCATION: Location 1 - [facility] Narrative 02/24/2020 12:19 PM CDT XR FLUORO NG TUBE PLACEMENT SI DATE: ??02/24/2020 11:33 AM HISTORY: Jejunostomy Tube. ?? Acute on chronic pancreatitis; Acute on chronic pancreatitis; History of plasmapheresis; Chylomicronemia syndrome; Type 2 diabetes mellitus without complication, with long-term current use of insulin; Type 2 diabetes mellitus without complication, with long-term current use of insulin; Hypertriglyceridemia COMPARISON: None.. REFERENCE AIR KERMA DOSE: ??10.9 mGy. NUMBER OF FLUOROSCOPIC IMAGES: 2 Fluoroscopic cine loops FINDINGS: The patient arrived in the radiology department with a Corpak feeding tube with the distal end in the stomach. The guidewire was still in place. The feeding tube was advanced into the duodenum to the duodenal jejunal junction. The tube was secured in place and the patient returned to the floor in good condition. INCIDENTAL FINDINGS: ??None. Procedure Note Nora Saravia MD - 02/24/2020 XR FLUORO NG TUBE PLACEMENT SI DATE: 02/24/2020 11:33 AM HISTORY: Jejunostomy Tube. Acute on chronic pancreatitis; Acute on chronic pancreatitis; History of plasmapheresis; Chylomicronemia syndrome; Type 2 diabetes mellitus without complication, with long-term current use of insulin; Type 2 diabetes mellitus without complication, with long-term current use of insulin; Hypertriglyceridemia COMPARISON: None.. REFERENCE AIR KERMA DOSE: 10.9 mGy. NUMBER OF FLUOROSCOPIC IMAGES: 2 Fluoroscopic cine loops FINDINGS: The patient arrived in the radiology department with a Corpak feeding tube with the distal end in the stomach. The guidewire was still in place. The feeding tube was advanced into the duodenum to the duodenal jejunal junction. The tube was secured in place and the patient returned to the floor in good condition. INCIDENTAL FINDINGS: None. IMPRESSION: The Corpak feeding tube was advanced to the level of the duodenal jejunal junction. FLUOROSCOPY TIME IN MINUTES: .6. DICTATION LOCATION: Location - [facility] Richard Mead MD DIAGNOSTIC IMAGING ORDERABLES * XR ABDOMEN FOR FEEDING TUBE 1 VW (02/24/2020 10:18 AM CDT) Anatomical Region Laterality Modality Abdomen Computed Radiogr aphy 02/24/2020 10:1 9 AM CDT Narrative 02/24/2020 10:44 AM CDT EXAM: PORTABLE ABDOMEN FOR TUBE PLACEMENT 02-24-2020 AT 0921 HOURS FINDINGS: Corpak feeding tube extends through the esophagus and into the stomach. Its distal tip ends in the gastric body. DICTATION LOCATION: ??Location - [facility] Procedure Note Michael Beebe MD - 02/24/2020 EXAM: PORTABLE ABDOMEN FOR TUBE PLACEMENT 02-24-2020 AT 0921 HOURS FINDINGS: Corpak feeding tube extends through the esophagus and into the stomach. Its distal tip ends in the gastric body. DICTATION LOCATION: Location - [facility] Karen Thomas MD DIAGNOSTIC IMAGING O RDERABLES * POC GLUCOSE (02/24/2020 9:28 AM CDT) GLUCOSE POC 93 74 - 99 mg/dL 02/24/2020 9:28 AM CDT [facility] LABORATORY [facility] COMMENT, GLU POC Notified RN/ 02/24/2020 9:28 AM CDT [facility] LABORATORY SERVICES [facility] CAREER CENTER ADVISOR NAME JEFF BARNETT (PN- WATKINS) 02/24/2020 9:28 AM CDT [facility] Blood, whole 02/24/2020 9:28 AM CDT 02/24/2020 12:43 PM CDT Karen Thomas MD POINT OF CARE TESTIN G Performing Organization Address [facility] Co de Phone Number [facility] CLIA# [id number] [address] [place] [address] * (ABNORMAL) TRIGLYCERIDE (02/24/2020 7:58 AM CDT) TRIGLYCERIDE 356(H) <150 mg/dL 02/24/2020 8:56 AM CDT [facility] Blood Venipuncture / Unknown 02/24/2020 7:58 AM CDT 02/24/2020 8:27 AM CDT Narrative [facility] - 02/24/2020 8:56 AM CDT TRIGLYCERIDES ? mg/dL Normal ?< 150 Borderline High ?150 - 199 High ? 200 - 499 Very High ? >= 500 Based on AHA/NCEP Guidelines. Richard Mead MD CHEMISTRY ORDERABL ES Performing Organization Address [facility] Co de Phone Number [facility] CLIA# [id number] [address] [place] [address] * PHOSPHORUS (02/24/2020 7:58 AM CDT) PHOSPHORUS 3.5 2.5 - 4.5 mg/dL 02/24/2020 8:56 AM CDT [facility] Blood Venipuncture / Unknown 02/24/2020 7:58 AM CDT 02/24/2020 8:27 AM CDT Richard Mead MD CHEMISTRY ORDERABL ES Performing Organization Address City/[facility]/ZIP Co de Phone Number [facility] SERVICES [facility]# [id number] [address] [place] [address] * MAGNESIUM LEVEL (02/24/2020 7:58 AM CDT) MAGNESIUM 1.8 1.6 - 2.6 mg/dL 02/24/2020 8:56 AM CDT [facility] LABORATORY SERVICES [facility] Blood Venipuncture / Unknown 02/24/2020 7:58 AM CDT 02/24/2020 8:27 AM CDT Richard Mead MD CHEMISTRY ORDERABL ES Performing Organization Address [facility]/ZIP Co de Phone Number [facility] SERVICES [facility] CLIA# [id number] [address] [place] [address] * (ABNORMAL) BASIC METABOLIC PANEL (02/24/2020 7:58 AM CDT) SODIUM 138 136 - 145 mmol/L 02/24/2020 8:56 AM CDT [facility] LABORATORY SERVICES - [facility] POTASSIUM 3.6 3.5 - 5.0 mmol/L 02/24/2020 8:56 AM CDT [facility] LABORATORY SERVICES - [facility] CHLORIDE 104 98 - 107 mmol/L 02/24/2020 8:56 AM CDT [facility] LABORATORY SERVICES - . [facility] CO2 27 22 - 29 mmol/L 02/24/2020 8:56 AM CDT [facility] LABORATORY SERVICES - . [facility] CALCIUM 8.9 8.6 - 10.2 mg/dL 02/24/2020 8:56 AM CDT [facility] LABORATORY SERVICES - . [facility] BUN 10 6 - 20 mg/dL 02/24/2020 8:56 AM CDT [facility] LABORATORY SERVICES - . [facility] CREATININE 0.62 0.51 - 0.95 mg/dL 02/24/2020 8:56 AM CDT [facility] LABORATORY SERVICES - . [facility] GLUCOSE 143(H) 74 - 99 mg/dL 02/24/2020 8:56 AM CDT [facility] LABORATORY SERVICES - . [facility] GFR >60 >=60 mL/min/1.7 3 sq meter 02/24/2020 8:56 AM CDT [facility] Comment: eGFR has not [...] GFR, >60 >=60 mL/min/1.7 3 sq meter 02/24/2020 8:56 AM CDT [facility] ANION GAP 7(L) 8 - 16 mmol/L 02/24/2020 8:56 AM CDT [facility] Blood Venipuncture / Unknown 02/24/2020 7:58 AM CDT 02/24/2020 8:27 AM CDT Richard Mead MD CHEMISTRY ORDERABL ES Performing Organization Address City/State/[facility] Co de Phone Number [facility]# [id number] [address] [facility] [place] [place] [address] * (ABNORMAL) POC GLUCOSE (02/24/2020 4:20 AM CDT) GLUCOSE POC 116(H) 74 - 99 mg/dL 02/24/2020 4:20 AM CDT [facility] COMMENT, GLU POC Notified RN/MD 02/24/2020 4:20 AM CDT [facility] CAREER CENTER ADVISOR NAME POC RADHA DELACRUZ 02/24/2020 4:20 AM CDT [facility] Blood, whole 02/24/2020 4:20 AM CDT 02/24/2020 8:28 AM CDT Karen Thomas MD POINT OF CARE TESTIN G [facility] CLIA# [id number] [address] [place] [address] * (ABNORMAL) POC GLUCOSE (02/23/2020 11:58 PM CDT) GLUCOSE POC 111(H) 74 - 99 mg/dL 02/23/2020 11:58 PM CDT [facility] LABORATORY SERVICES [facility] COMMENT, GLU POC Notified RN/MD 02/23/2020 11:58 PM CDT [facility] LABORATORY SERVICES [facility] CAREER CENTER ADVISOR NAME POC RADHA DELACRUZ 02/23/2020 11:58 PM CDT [facility] LABORATORY [facility] Blood, whole 02/23/2020 11:5 8 PM CDT 02/24/2020 12:36 AM CDT Karen Thomas MD POINT OF CARE FLY Maggie Performing Organization Address [facility]/ZIP Co de Phone Number [facility] CLIA# [id number] [address] [place] [address] * POC GLUCOSE (02/23/2020 8:07 PM CDT) GLUCOSE POC 85 74 - 99 mg/dL 02/23/2020 8:07 PM CDT [facility] LABORATORY [facility] CAREER CENTER ADVISOR NAME POC ROLANDO HERNANDEZ 02/23/2020 8:07 PM CDT [facility] LABORATORY [facility] Blood, whole 02/23/2020 8:07 PM CDT 02/23/2020 8:21 PM CDT Karen Thomas MD POINT OF CARE VINICIUSJERONIMO Maggie [facility] CLIA# [id number] [address] [place] [address] * XR ABDOMEN FOR FEEDING TUBE 1 VW (02/23/2020 6:30 PM CDT) Anatomical Region Laterality Modality Abdomen Computed Radiogr aphy 02/23/2020 6:31 PM CDT Impressions 02/23/2020 9:07 PM CDT IMPRESSION: Feeding tube in the distal stomach. DICTATION LOCATION: Location 1 - [facility] Narrative 02/23/2020 9:07 PM CDT XR ABDOMEN FOR FEEDING TUBE 1 VIEW DATE: 02/23/2020 6:30 PM HISTORY: Corpak Placement. FINDINGS: Feeding tube is present with its tip located in the distal stomach. Visible bowel gas is unremarkable. Lung bases are well aerated. Central catheter superimposes the SVC. INCIDENTAL FINDINGS: ??None. Procedure Note Dominguez Elder MD - 02/23/2020 XR ABDOMEN FOR FEEDING TUBE 1 VIEW DATE: 02/23/2020 6:30 PM HISTORY: Corpak Placement. FINDINGS: Feeding tube is present with its tip located in the distal stomach. Visible bowel gas is unremarkable. Lung bases are well aerated. Central catheter superimposes the SVC. INCIDENTAL FINDINGS: None. IMPRESSION: Feeding tube in the distal stomach. DICTATION LOCATION: Location [address] [place] [address] Karen Thomas MD DIAGNOSTIC IMAGING O RDERABLES * (ABNORMAL) POC GLUCOSE (02/23/2020 4:45 PM CDT) GLUCOSE POC 106(H) 74 - 99 mg/dL 02/23/2020 4:45 PM CDT [facility] LABORATORY [facility] CAREER CENTER ADVISOR NAME POC ABHAY GRIFFITHS 02/23/2020 4:45 PM CDT [facility] LABORATORY [facility] Blood, whole 02/23/2020 4:45 PM CDT 02/23/2020 5:13 PM CDT Karen Thomas MD POINT OF CARE TESTIN G [facility] LABORATORY [facility] CLIA# [id number] [address] [place] [address] * POC GLUCOSE (02/23/2020 12:34 PM CDT) GLUCOSE POC 95 74 - 99 mg/dL 02/23/2020 12:34 PM CDT [facility] LABORATORY [facility] CAREER CENTER ADVISOR NAME POC JEFF BLOOD 02/23/2020 12:34 PM CDT [facility] LAB[facility] Blood, whole 02/23/2020 12:3 4 PM CDT 02/23/2020 12:44 PM CDT Karen Thomas MD POINT OF CARE TESTJERONIMO Maggie Performing Organization Address [facility]/ZIP Co de Phone Number [facility] CLIA# [id number] [address] [place] [address] * POC GLUCOSE (02/23/2020 9:38 AM CDT) GLUCOSE POC 96 74 - 99 mg/dL 02/23/2020 9:38 AM CDT [facility] LAB[facility]ORY [facility] COMMENT, GLU POC Notified RN/MD 02/23/2020 9:38 AM CDT [facility] LABORATORY [facility] CAREER CENTER ADVISOR NAME POC JESUS ALBERTO PADILLA 02/23/2020 9:38 AM CDT [facility] Blood, whole 02/23/2020 9:38 AM CDT 02/23/2020 10:28 AM CDT Karen Thomas MD POINT OF CARE FLY Maggie Performing Organization Address [facility] Co de Phone Number [facility] CLIA# [id number] [address] [place] [address] * (ABNORMAL) TRIGLYCERIDE (02/23/2020 6:45 AM CDT) TRIGLYCERIDE 318(H) <150 mg/dL 02/23/2020 7:35 AM CDT [facility] Blood Venipuncture / Unknown 02/23/2020 6:45 AM CDT 02/23/2020 6:54 AM CDT Narrative [facility] LAB[facility]ATORY [facility] - 02/23/2020 7:35 AM CDT TRIGLYCERIDES ? mg/dL Normal ?< 150 Borderline High ?150 - 199 High ? 200 - 499 Very High ? >= 500 Based on AHA/NCEP Guidelines. Richard Mead MD CHEMISTRY ORDERABL ES Performing Organization Address [facility] Co de Phone Number [facility]# [id number] [address] [place] [address] * PHOSPHORUS (02/23/2020 6:45 AM CDT) PHOSPHORUS 3.7 2.5 - 4.5 mg/dL 02/23/2020 7:35 AM CDT [facility] Blood Venipuncture / Unknown 02/23/2020 6:45 AM CDT 02/23/2020 6:54 AM CDT Richard Mead MD CHEMISTRY ORDERABL ES Performing Organization Address [facility] Phone Number [facility]# [id number] [address] [place] [address] * MAGNESIUM LEVEL (02/23/2020 6:45 AM CDT) MAGNESIUM 1.7 1.6 - 2.6 mg/dL 02/23/2020 7:35 AM CDT [facility] Blood Venipuncture / Unknown 02/23/2020 6:45 AM CDT 02/23/2020 6:54 AM CDT Richard Mead MD CHEMISTRY ORDERABL ES Performing Organization Address [facility] de Phone Number [facility]# [id number] [address] [place] [address] * (ABNORMAL) BASIC METABOLIC PANEL (02/23/2020 6:45 AM CDT) SODIUM 140 136 - 145 mmol/L 02/23/2020 7:35 AM T [facility] LABORATORY SERVICES [facility] POTASSIUM 3.4(L) 3.5 - 5.0 mmol/L 02/23/2020 7:35 AM T [facility] LABORATORY SERVICES [facility] CHLORIDE 103 98 - 107 mmol/L 02/23/2020 7:35 AM T [facility] SERVICES [facility] CO2 26 22 - 29 mmol/L 02/23/2020 7:35 AM T [facility] SERVICES [facility] CALCIUM 8.5(L) 8.6 - 10.2 mg/dL 02/23/2020 7:35 AM T [facility] SERVICES [facility] BUN 6 6 - 20 mg/dL 02/23/2020 7:35 AM T [facility] SERVICES [facility] CREATININE 0.67 0.51 - 0.95 mg/dL 02/23/2020 7:35 AM T [facility] SERVICES [facility] GLUCOSE 116(H) 74 - 99 mg/dL 02/23/2020 7:35 AM T [facility] SERVICES [facility] GFR >60 >=60 mL/min/1.7 3 sq meter 02/23/2020 7:35 AM T [facility] SERVICES [facility] Comment: eGFR has not been validated [...] GFR, >60 >=60 mL/min/1.7 3 sq meter 02/23/2020 7:35 AM T [facility] LABORATORY SERVICES [facility] ANION GAP 11 8 - 16 mmol/L 02/23/2020 7:35 AM T [facility] Blood Venipuncture / Unknown 02/23/2020 6:45 AM CDT 02/23/2020 6:54 AM CDT Richard Mead MD CHEMISTRY ORDERABL ES Performing Organization Address [facility]/ZIP Co de Phone Number [facility]# [id number] [address] [place] [address] * (ABNORMAL) POC GLUCOSE (02/23/2020 4:05 AM CDT) GLUCOSE POC 119(H) 74 - 99 mg/dL 02/23/2020 4:05 AM CDT [facility] LABORATORY [facility] CAREER CENTER ADVISOR NAME POC CONNIE BOWLES 02/23/2020 4:05 AM CDT [facility] LABORATORY [facility] Blood, whole 02/23/2020 4:05 AM CDT 02/23/2020 5:03 AM CDT Richard Mead MD POINT OF CARE TEST ING Performing Organization Address [facility] Co de Phone Number [facility] CLPA# [id number] [address] [place] [address] * (ABNORMAL) POC GLUCOSE (02/22/2020 10:49 PM CDT) GLUCOSE POC 149(H) 74 - 99 mg/dL 02/22/2020 10:49 PM CDT [facility] LABORATORY [facility] CAREER CENTER ADVISOR NAME POC SYLVIE CARROLL 02/22/2020 10:49 PM CDT [facility] LABORATORY [facility] Blood, whole 02/22/2020 10:4 9 PM CDT 02/22/2020 11:10 PM CDT Richard Mead MD POINT OF CARE TEST ING Performing Organization Address [facility] Co de Phone Number [facility] CLIA# [id number] [address] [place] [address] * (ABNORMAL) POC GLUCOSE (02/22/2020 5:44 PM CDT) GLUCOSE POC 122(H) 74 - 99 mg/dL 02/22/2020 5:44 PM CDT [facility] LABORATORY [facility] CAREER CENTER ADVISOR NAME AMENA FIORE 02/22/2020 5:44 PM CDT [facility] Blood, whole 02/22/2020 5:44 PM CDT 02/22/2020 5:52 PM CDT Richard Mead MD POINT OF CARE TEST ING Performing Organization Address [facility]/ZIP Co de Phone Number [facility] CLIA# [id number] [address] [place] [address] * (ABNORMAL) POC GLUCOSE (02/22/2020 1:50 PM CDT) GLUCOSE POC 113(H) 74 - 99 mg/dL 02/22/2020 1:50 PM CDT [facility] CAREER CENTER ADVISOR NAME AMENA FIORE 02/22/2020 1:50 PM CDT [facility] Blood, whole 02/22/2020 1:50 PM CDT 02/22/2020 1:59 PM CDT Richard Mead MD POINT OF CARE TEST ING Performing Organization Address [facility]/ZIP Co de Phone Number [facility] CLIA# [id number] [address] [place] [address] * POC GLUCOSE (02/22/2020 8:58 AM CDT) GLUCOSE POC 92 74 - 99 mg/dL 02/22/2020 8:58 AM CDT [facility] LABORATORY [facility] CAREER CENTER ADVISOR NAME AMENA FIORE 02/22/2020 8:58 AM CDT [facility] Blood, whole 02/22/2020 8:58 AM CDT 02/22/2020 9:15 AM CDT Richard Mead MD POINT OF CARE TEST ING Performing Organization Address [facility]/ZIP Co de Phone Number [facility] CLIA# [id number] [address] [place] [address] * (ABNORMAL) POC GLUCOSE (02/21/2020 11:07 PM CDT) GLUCOSE POC 165(H) 74 - 99 mg/dL 02/21/2020 11:07 PM CDT [facility] LABORATORY SERVICES [facility] COMMENT, GLU POC Notified RN/MD 02/21/2020 11:07 PM CDT [facility] CAREER CENTER ADVISOR NAME POC CONNIE BOWLES 02/21/2020 11:07 PM CDT [facility] Blood, whole 02/21/2020 11:0 7 PM CDT 02/21/2020 11:14 PM CDT Richard Mead MD POINT OF CARE TEST ING Performing Organization Address [facility]/ZIP Co de Phone Number [facility] CLIA# [id number] [address] [place] [address] * POC GLUCOSE (02/21/2020 6:49 PM CDT) GLUCOSE POC 79 74 - 99 mg/dL 02/21/2020 6:49 PM CDT [facility]ORY [facility] CAREER CENTER ADVISOR NAME POC AMENA CARLISLE 02/21/2020 6:49 PM CDT [facility] Blood, whole 02/21/2020 6:49 PM CDT 02/21/2020 6:58 PM CDT Richard Mead MD POINT OF CARE TEST ING Performing Organization Address [facility]/ZIP Co de Phone Number [facility] CLIA# [id number] [address] [place] [address] * (ABNORMAL) POC GLUCOSE (02/21/2020 1:51 PM CDT) GLUCOSE POC 147(H) 74 - 99 mg/dL 02/21/2020 1:51 PM CDT [facility] LABORATORY [facility] CAREER CENTER ADVISOR NAME AMENA FIORE 02/21/2020 1:51 PM CDT [facility] Blood, whole 02/21/2020 1:51 PM CDT 02/21/2020 3:59 PM CDT Richard Mead MD POINT OF CARE TEST ING Performing Organization Address [facility]/ZIP Co de Phone Number [facility] CLIA# [id number] [address] [place] [address] * (ABNORMAL) POC GLUCOSE (02/21/2020 8:49 AM CDT) GLUCOSE POC 101(H) 74 - 99 mg/dL 02/21/2020 8:49 AM CDT [facility] LABORATORY [facility] CAREER CENTER ADVISOR NAME AMENA FIORE 02/21/2020 8:49 AM CDT [facility] LABORATORY SERVICES [facility] Blood, whole 02/21/2020 8:49 AM CDT 02/21/2020 8:59 AM CDT Richard Mead MD POINT OF CARE TEST ING Performing Organization Address [facility]/ZIP Co de Phone Number [facility] CLIA# [id number] [address] [place] [address] * (ABNORMAL) BASIC METABOLIC PANEL (02/21/2020 7:56 AM CDT) SODIUM 141 136 - 145 mmol/L 02/21/2020 8:35 AM CDT [facility] LABORATORY SERVICES [facility] POTASSIUM 3.8 3.5 - 5.0 mmol/L 02/21/2020 8:35 AM CDT [facility] LABORATORY SERVICES [facility] CHLORIDE 106 98 - 107 mmol/L 02/21/2020 8:35 AM CDT [facility]ORATORY SERVICES [facility] CO2 23 22 - 29 mmol/L 02/21/2020 8:35 AM CDT [facility] CALCIUM 8.5(L) 8.6 - 10.2 mg/dL 02/21/2020 8:35 AM CDT [facility] BUN 5(L) 6 - 20 mg/dL 02/21/2020 8:35 AM CDT [facility] CREATININE 0.46(L) 0.51 - 0.95 mg/dL 02/21/2020 8:35 AM CDT [facility] GLUCOSE 124(H) 74 - 99 mg/dL 02/21/2020 8:35 AM CDT [facility] GFR >60 >=60 mL/min/1.7 3 sq meter 02/21/2020 8:35 AM CDT [facility] Comment: eGFR has not been validated for [...] GFR, >60 >=60 mL/min/1.7 3 sq meter 02/21/2020 8:35 AM CDT [facility] ANION GAP 12 8 - 16 mmol/L 02/21/2020 8:35 AM T [facility] Blood Venipuncture / Unknown 02/21/2020 7:56 AM CDT 02/21/2020 8:03 AM CDT Richard Mead MD CHEMISTRY ORDERABL ES [facility]# [id number] [address] [facility] [place] [address] * (ABNORMAL) TRIGLYCERIDE (02/21/2020 7:56 AM CDT) TRIGLYCERIDE 319(H) <150 mg/dL 02/21/2020 8:35 AM CDT [facility]ORATORY [facility] Blood Venipuncture / Unknown 02/21/2020 7:56 AM CDT 02/21/2020 8:03 AM CDT Narrative [facility]OR[facility]ORY [facility] - 02/21/2020 8:35 AM CDT TRIGLYCERIDES ? mg/dL Normal ?< 150 Borderline High ?150 - 199 High ? 200 - 499 Very High ? >= 500 Based on AHA/NCEP Guidelines. Richard Mead MD CHEMISTRY ORDERABL ES Performing Organization Address [facility] Co de Phone Number [facility]# [id number] [address] [place] [address] * (ABNORMAL) POC GLUCOSE (02/21/2020 12:27 AM CDT) GLUCOSE POC 177(H) 74 - 99 mg/dL 02/21/2020 12:27 AM CDT [facility] CAREER CENTER ADVISOR NAME POC GLENSYLVIE 02/21/2020 12:27 AM CDT [facility] Blood, whole 02/21/2020 12:2 7 AM CDT 02/21/2020 4:21 AM CDT Richard Mead MD POINT OF CARE TEST ING Performing Organization Address [facility]/ZIP Co de Phone Number [facility]# [id number] [address] [place] [address] * POC GLUCOSE (02/20/2020 8:29 PM CDT) GLUCOSE POC 89 74 - 99 mg/dL 02/20/2020 8:29 PM CDT [facility] CAREER CENTER ADVISOR NAME POC SYLVIE CARROLL 02/20/2020 8:29 PM CDT [facility] LABORATORY SERVICES [facility] Blood, whole 02/20/2020 8:29 PM CDT 02/20/2020 9:01 PM CDT Richard Mead MD POINT OF CARE TEST ING [facility] CLIA# [id number] [address] [place] [address] * POC GLUCOSE (02/20/2020 7:04 PM CDT) GLUCOSE POC 82 74 - 99 mg/dL 02/20/2020 7:04 PM CDT [facility] LABORATORY [facility] CAREER CENTER ADVISOR NAME POC ABHAY GRIFFITHS 02/20/2020 7:04 PM CDT [facility]OR[facility] Blood, whole 02/20/2020 7:04 PM CDT 02/20/2020 8:55 PM CDT Richard Mead MD POINT OF CARE TEST ING Performing Organization Address City/[facility]/ZIP Co de Phone Number [facility] CLIA# [id number] [address] [place] [address] * (ABNORMAL) POC GLUCOSE (02/20/2020 6:45 PM CDT) GLUCOSE POC 65(L) 74 - 99 mg/dL 02/20/2020 6:45 PM CDT [facility] LABORATORY SERVICES [facility] COMMENT, GLU POC Notified RN/MD 02/20/2020 6:45 PM CDT [facility] LAB[facility]ORY [facility] CAREER CENTER ADVISOR NAME POC RADHA DELACRUZ 02/20/2020 6:45 PM CDT [facility] SERVICES [facility] Blood, whole 02/20/2020 6:45 PM CDT 02/20/2020 6:53 PM CDT Richard Mead MD POINT OF CARE TEST ING [facility]# [id number] [address] [place] [address] * (ABNORMAL) POC GLUCOSE (02/20/2020 6:29 PM CDT) GLUCOSE POC 51(L) 74 - 99 mg/dL 02/20/2020 6:29 PM CDT [facility] LABORATORY [facility] CAREER CENTER ADVISOR NAME POC ABHAY GRIFFITHS 02/20/2020 6:29 PM CDT [facility] LABORATORY [facility] Blood, whole 02/20/2020 6:29 PM CDT 02/20/2020 8:55 PM CDT Richard Mead MD POINT OF CARE TEST ING Performing Organization Address [facility]/ZIP Co de Phone Number [facility] CLPA# [id number] [address] [place] [address] * POC GLUCOSE (02/20/2020 12:41 PM CDT) GLUCOSE POC 80 74 - 99 mg/dL 02/20/2020 12:41 PM CDT [facility] LABORATORY [facility] CAREER CENTER ADVISOR NAME POC ISHMAEL AUGUSTIN 02/20/2020 12:41 PM CDT [facility] LABORATORY [facility] Blood, whole 02/20/2020 12:4 1 PM CDT 02/20/2020 1:22 PM CDT Richard Mead MD POINT OF CARE TEST ING Performing Organization Address City/[facility]/ZIP Co de Phone Number [facility]# [id number] [address] [place] [address] * POC GLUCOSE (02/20/2020 9:50 AM CDT) GLUCOSE POC 94 74 - 99 mg/dL 02/20/2020 9:50 AM CDT [facility] LABORATORY [facility] CAREER CENTER ADVISOR NAME POC GENOVEVA LEONG (pn-SANDEFER ) 02/20/2020 9:50 AM CDT [facility] Blood, whole 02/20/2020 9:50 AM CDT 02/20/2020 10:03 AM CDT Richard Mead MD POINT OF CARE TEST ING [facility]# [id number] [address] [facility] [address] [address] * (ABNORMAL) BASIC METABOLIC PANEL (02/20/2020 6:43 AM CDT) SODIUM 140 136 - 145 mmol/L 02/20/2020 8:[address] [facility] [employer] [facility] POTASSIUM 3.3(L) 3.5 - 5.0 mmol/L 02/20/2020 8:[address] [facility] [employer] [facility] CHLORIDE 107 98 - 107 mmol/L 02/20/2020 8:[address] [facility] [employer] [facility] CO2 25 22 - 29 mmol/L 02/20/2020 8:[address] [facility] [employer] [facility] CALCIUM 8.3(L) 8.6 - 10.2 mg/dL 02/20/2020 8:05 AM [facility] BUN 3(L) 6 - 20 mg/dL 02/20/2020 8:[address] [facility] [employer] [facility] CREATININE 0.53 0.51 - 0.95 mg/dL 02/20/2020 8:[address] [facility] [employer] [facility] GLUCOSE 133(H) 74 - 99 mg/dL 02/20/2020 8:[address] [facility] [employer] [facility] GFR >60 >=60 mL/min/1.7 3 sq meter 02/20/2020 8:[address] [facility] [employer] SERVICES [facility] Comment: eGFR has not been validated [...] GFR, >60 >=60 mL/min/1.7 3 sq meter 02/20/2020 8:05 AM CDT [facility] LABORATORY [facility] ANION GAP 8 8 - 16 mmol/L 02/20/2020 8:05 AM CDT [facility] Blood Venipuncture / Unknown 02/20/2020 6:43 AM CDT 02/20/2020 7:11 AM CDT Richard Mead MD CHEMISTRY ORDERABL ES Performing Organization Address [facility] de Phone Number [facility]# [id number] [address] [place] [address] * (ABNORMAL) TRIGLYCERIDE (02/20/2020 6:43 AM CDT) TRIGLYCERIDE 341(H) <150 mg/dL 02/20/2020 8:05 AM CDT [facility] Blood Venipuncture / Unknown 02/20/2020 6:43 AM CDT 02/20/2020 7:11 AM CDT Narrative [facility] LABORATORY [facility] - 02/20/2020 8:05 AM CDT TRIGLYCERIDES ? mg/dL Normal ?< 150 Borderline High ?150 - 199 High ? 200 - 499 Very High ? >= 500 Based on AHA/NCEP Guidelines. Richard Mead MD CHEMISTRY ORDERABL ES Performing Organization Address [facility] Co de Phone Number [facility]# [id number] [address] [place] [address] * (ABNORMAL) POC GLUCOSE (02/19/2020 8:00 PM CDT) GLUCOSE POC 100(H) 74 - 99 mg/dL 02/19/2020 8:00 PM CDT [facility] LABORATORY SERVICES - [facility] CAREER CENTER ADVISOR NAME POC ANTWON SILVER 02/19/2020 8:00 PM CDT [facility] LAB[facility] - [facility] Blood, whole 02/19/2020 8:00 PM CDT 02/19/2020 8:16 PM CDT Richard Mead MD POINT OF CARE TEST ING [facility] LABORATORY [facility] CLIA# [id number] [address] [place] [address] * (ABNORMAL) POC GLUCOSE (02/19/2020 6:05 PM CDT) GLUCOSE POC 103(H) 74 - 99 mg/dL 02/19/2020 6:05 PM CDT [facility] LABORATORY SERVICES [facility] CAREER CENTER ADVISOR NAME POC YAMIL BEJARANO 02/19/2020 6:05 PM CDT [facility] LABORATORY SERVICES [facility] Blood, whole 02/19/2020 6:05 PM CDT 02/19/2020 6:14 PM CDT Richard Mead MD POINT OF CARE TEST ING [facility] LABORATORY [facility] CLIA# [id number] [address] [place] [address] * (ABNORMAL) POC GLUCOSE (02/19/2020 2:15 PM CDT) GLUCOSE POC 121(H) 74 - 99 mg/dL 02/19/2020 2:15 PM CDT [facility] SERVICES [facility] COMMENT, GLU POC Notified RN/MD 02/19/2020 2:15 PM CDT [facility] LAB[facility] SERVICES [facility] CAREER CENTER ADVISOR NAME POC LA, CONNIE 02/19/2020 2:15 PM CDT [facility] LABORATORY SERVICES - [facility] Blood, whole 02/19/2020 2:15 PM CDT 02/19/2020 2:25 PM CDT Richard Mead MD POINT OF CARE TEST ING Performing Organization Address [facility]/State/ZIP Co de Phone Number [facility] CLIA# [id number] [address] [place] [address] * (ABNORMAL) POC GLUCOSE (02/19/2020 10:11 AM CDT) GLUCOSE POC 112(H) 74 - 99 mg/dL 02/19/2020 10:11 AM CDT [facility] LABORATORY SERVICES [facility] CAREER CENTER ADVISOR NAME POC YAMIL BEJARANO 02/19/2020 10:11 AM CDT [facility] LABORATORY SERVICES - [facility] Blood, whole 02/19/2020 10:1 1 AM CDT 02/19/2020 10:23 AM CDT Richard Mead MD POINT OF CARE TEST ING Performing Organization Address City/[facility]/ZIP Co de Phone Number [facility] CLIA# [id number] [address] [place] [address] * (ABNORMAL) BASIC METABOLIC PANEL (02/19/2020 8:14 AM CDT) SODIUM 141 136 - 145 mmol/L 02/19/2020 9:12 AM CDT [facility] LABORATORY SERVICES - [facility] POTASSIUM 3.9 3.5 - 5.0 mmol/L 02/19/2020 9:12 AM CDT [facility] LABORATORY SERVICES - [facility] CHLORIDE 113(H) 98 - 107 mmol/L 02/19/2020 9:12 AM CDT [facility] LABORATORY SERVICES - [facility] CO2 20(L) 22 - 29 mmol/L 02/19/2020 9:12 AM CDT [facility] LABORATORY SERVICES - [facility] CALCIUM 7.3(L) 8.6 - 10.2 mg/dL 02/19/2020 9:12 AM CDT [facility] LABORATORY SERVICES - [facility] BUN 2(L) 6 - 20 mg/dL 02/19/2020 9:12 AM [facility] CREATININE 0.46(L) 0.51 - 0.95 mg/dL 02/19/2020 9:12 AM [facility] GLUCOSE 119(H) 74 - 99 mg/dL 02/19/2020 9:12 AM T [facility] GFR >60 >=60 mL/min/1.7 3 sq meter 02/19/2020 9:12 AM T [facility] LABORATORY [facility] Comment: eGFR has not [...] GFR, >60 >=60 mL/min/1.7 3 sq meter 02/19/2020 9:12 AM T [facility] LABORATORY [facility] ANION GAP 8 8 - 16 mmol/L 02/19/2020 9:12 AM [facility] Blood Venipuncture / Unknown 02/19/2020 8:14 AM CDT 02/19/2020 8:18 AM CDT Richard Mead MD CHEMISTRY ORDERABL ES [facility]# [id number] [address] [facility] [place] [place] [address] * (ABNORMAL) POC GLUCOSE (02/19/2020 6:54 AM CDT) GLUCOSE POC 103(H) 74 - 99 mg/dL 02/19/2020 6:54 AM CDT [facility] LABORATORY [facility] CAREER CENTER ADVISOR NAME POC RONEY MORELAND 02/19/2020 6:54 AM CDT [facility] Blood, whole 02/19/2020 6:54 AM CDT 02/19/2020 7:02 AM CDT Richard Mead MD POINT OF CARE TEST ING [facility] LABORATORY [facility] CLIA# [id number] [address] [place] [address] * POC GLUCOSE (02/19/2020 5:58 AM CDT) GLUCOSE POC 98 74 - 99 mg/dL 02/19/2020 5:58 AM CDT [facility] LABORATORY [facility] CAREER CENTER ADVISOR NAME POC RONEY MORELAND 02/19/2020 5:58 AM CDT [facility] Blood, whole 02/19/2020 5:58 AM CDT 02/19/2020 6:07 AM CDT Richard Mead MD POINT OF CARE TEST ING Performing Organization Address [facility]/ZIP Co de Phone Number [facility] CLIA# [id number] [address] [place] [address] * (ABNORMAL) POC GLUCOSE (02/19/2020 5:06 AM CDT) GLUCOSE POC 106(H) 74 - 99 mg/dL 02/19/2020 5:06 AM CDT [facility] CAREER CENTER ADVISOR NAME POC RONEY MORELAND 02/19/2020 5:06 AM CDT [facility] Blood, whole 02/19/2020 5:06 AM CDT 02/19/2020 5:16 AM CDT Richard Mead MD POINT OF CARE TEST ING [facility] LABORATORY [facility] CLIA# [id number] [address] [place] [address] * (ABNORMAL) TRIGLYCERIDE (02/19/2020 4:09 AM CDT) [facility] TRIGLYCERIDE 404(H) <150 mg/dL 02/19/2020 4:53 AM CDT [facility] Blood Venipuncture / Unknown 02/19/2020 4:09 AM CDT 02/19/2020 4:13 AM CDT Narrative [facility] - 02/19/2020 4:53 AM CDT TRIGLYCERIDES ? mg/dL Normal ?< 150 Borderline High ?150 - 199 High ? 200 - 499 Very High ? >= 500 Based on AHA/NCEP Guidelines. Richard Mead MD CHEMISTRY ORDERABL ES Performing Organization Address City/[facility]/ZIP Co de Phone Number [facility]# [id number] [address] [place] [address] * (ABNORMAL) POC GLUCOSE (02/19/2020 3:58 AM CDT) [facility] GLUCOSE POC 122(H) 74 - 99 mg/dL 02/19/2020 3:58 AM CDT [facility] CAREER CENTER ADVISOR NAME POC RONEY MORELAND 02/19/2020 3:58 AM CDT [facility] Blood, whole 02/19/2020 3:58 AM CDT 02/19/2020 4:15 AM CDT Richard Mead MD POINT OF CARE TEST ING Performing Organization Address [facility]/ZIP Co de Phone Number [facility]# [id number] [address] [place] [address] * (ABNORMAL) POC GLUCOSE (02/19/2020 3:20 AM CDT) GLUCOSE POC 149(H) 74 - 99 mg/dL 02/19/2020 3:20 AM CDT [facility] LABORATORY [facility] CAREER CENTER ADVISOR NAME POC ROBERT CONNOR (CLIFFORD) 02/19/2020 3:20 AM CDT [facility] LABORATORY [facility] Blood, whole 02/19/2020 3:20 AM CDT 02/19/2020 3:30 AM CDT Richard Mead MD POINT OF CARE TEST ING Performing Organization Address [facility]/ZIP Co de Phone Number [facility] CLIA# [id number] [address] [place] [address] * (ABNORMAL) POC GLUCOSE (02/19/2020 2:01 AM CDT) GLUCOSE POC 198(H) 74 - 99 mg/dL 02/19/2020 2:01 AM CDT [facility] LABORATORY [facility] CAREER CENTER ADVISOR NAME POC RONEY MORELAND 02/19/2020 2:01 AM CDT [facility] LABORATORY [facility] Blood, whole 02/19/2020 2:01 AM CDT 02/19/2020 2:08 AM CDT Richard Mead MD POINT OF CARE TEST ING Performing Organization Address [facility] Co de Phone Number [facility]# [id number] [address] [place] [address] * (ABNORMAL) POC GLUCOSE (02/19/2020 12:57 AM CDT) GLUCOSE POC 207(H) 74 - 99 mg/dL 02/19/2020 12:57 AM CDT [facility] LABORATORY [facility] CAREER CENTER ADVISOR NAME POC RONEY MORELAND 02/19/2020 12:57 AM CDT [facility] LABORATORY SERVICES [facility] Blood, whole 02/19/2020 12:5 7 AM CDT 02/19/2020 1:06 AM CDT Richard Mead MD POINT OF CARE TEST ING Performing Organization Address [facility]/ZIP Co de Phone Number [facility]# [id number] [address] [place] [address] * (ABNORMAL) POC GLUCOSE (02/19/2020 12:01 AM CDT) GLUCOSE POC 175(H) 74 - 99 mg/dL 02/19/2020 12:01 AM CDT [facility] LABORATORY [facility] CAREER CENTER ADVISOR NAME POC RONEY MORELAND 02/19/2020 12:01 AM CDT [facility] LABORATORY [facility] Blood, whole 02/19/2020 12:0 1 AM CDT 02/19/2020 12:11 AM CDT Richard Mead MD POINT OF CARE TEST ING Performing Organization Address [facility] Co de Phone Number [facility]# [id number] [address] [place] [address] * (ABNORMAL) POC GLUCOSE (02/18/2020 11:00 PM CDT) GLUCOSE POC 152(H) 74 - 99 mg/dL 02/18/2020 11:00 PM CDT [facility] LABORATORY [facility] CAREER CENTER ADVISOR NAME POC ROBERT CONNOR) 02/18/2020 11:00 PM CDT [facility]OR[facility] Blood, whole 02/18/2020 11:0 0 PM CDT 02/18/2020 11:10 PM CDT Richard Mead MD POINT OF CARE TEST ING Performing Organization Address [facility]/ZIP Co de Phone Number [facility] [employer] [facility]# [id number] [address] [place] [address] * (ABNORMAL) POC GLUCOSE (02/18/2020 10:01 PM CDT) GLUCOSE POC 164(H) 74 - 99 mg/dL 02/18/2020 10:01 PM CDT [facility] CAREER CENTER ADVISOR NAME POC RONEY MORELAND 02/18/2020 10:01 PM CDT [facility] Blood, whole 02/18/2020 10:0 1 PM CDT 02/18/2020 10:23 PM CDT Richard Mead MD POINT OF CARE TEST ING Performing Organization Address [facility] Co de Phone Number [facility]# [id number] [address] [place] [address] * (ABNORMAL) POC GLUCOSE (02/18/2020 8:57 PM CDT) GLUCOSE POC 161(H) 74 - 99 mg/dL 02/18/2020 8:57 PM CDT [facility] CAREER CENTER ADVISOR NAME POC RONEY MORELAND 02/18/2020 8:57 PM CDT [facility] Blood, whole 02/18/2020 8:57 PM CDT 02/18/2020 9:14 PM CDT Richard Mead MD POINT OF CARE TEST ING Performing Organization Address [facility] Co de Phone Number [facility]# [id number] [address] [place] [address] * (ABNORMAL) POC GLUCOSE (02/18/2020 8:00 PM CDT) GLUCOSE POC 194(H) 74 - 99 mg/dL 02/18/2020 8:00 PM CDT [facility] [facility] CARE[facility] CENTER ADVISOR NAME POC RONEY MORELAND 02/18/2020 8:00 PM CDT [facility] Blood, whole 02/18/2020 8:00 PM CDT 02/18/2020 8:15 PM CDT Richard Mead MD POINT OF CARE TEST ING Performing Organization Address [facility]/ZIP Co de Phone Number [facility]# [id number] [address] [place] [address] * (ABNORMAL) POC GLUCOSE (02/18/2020 7:02 PM CDT) GLUCOSE POC 173(H) 74 - 99 mg/dL 02/18/2020 7:02 PM CDT [facility] CAREER CENTER ADVISOR NAME POC ROBERT CONNOR ([place]IFF[place]) 02/18/2020 7:02 PM CDT [facility] Blood, whole 02/18/2020 7:02 PM CDT 02/18/2020 7:11 PM CDT Richard Mead MD POINT OF CARE TEST ING Performing Organization Address [facility] Co de Phone Number [facility]# [id number] [address] [place] [address] * (ABNORMAL) POC GLUCOSE (02/18/2020 6:00 PM CDT) GLUCOSE POC 147(H) 74 - 99 mg/dL 02/18/2020 6:00 PM CDT [facility] CAREER CENTER ADVISOR NAME POC KATIE HERRERA 02/18/2020 6:00 PM CDT [facility] Blood, whole 02/18/2020 6:00 PM CDT 02/18/2020 6:07 PM CDT Richard Mead MD POINT OF CARE TEST ING Performing Organization Address [facility]/ZIP Co de Phone Number [facility]# [id number] [address] [place] [address] * (ABNORMAL) BASIC METABOLIC PANEL (02/18/2020 5:38 PM CDT) SODIUM 139 136 - 145 mmol/L 02/18/2020 6:29 PM CDT [facility] POTASSIUM 3.7 3.5 - 5.0 mmol/L 02/18/2020 6:29 PM CDT [facility] - [facility] CHLORIDE 109(H) 98 - 107 mmol/L 02/18/2020 6:29 PM T [facility] CO2 20(L) 22 - 29 mmol/L 02/18/2020 6:29 PM T [facility] - [facility] CALCIUM 7.8(L) 8.6 - 10.2 mg/dL 02/18/2020 6:29 PM T [facility] - [facility] BUN <2(L) 6 - 20 mg/dL 02/18/2020 6:29 PM T [facility] - [facility] CREATININE 0.39(L) 0.51 - 0.95 mg/dL 02/18/2020 6:29 PM T [facility] GLUCOSE 171(H) 74 - 99 mg/dL 02/18/2020 6:29 PM T [facility] GFR >60 >=60 mL/min/1.7 3 sq meter 02/18/2020 6:29 PM T [facility] Comment: eGFR has not been [...] GFR, >60 >=60 mL/min/1.7 3 sq meter 02/18/2020 6:29 PM CDT [facility] ANION GAP 10 8 - 16 mmol/L 02/18/2020 6:29 PM T [facility] Blood Venipuncture / Unknown 02/18/2020 5:38 PM CDT 02/18/2020 5:44 PM CDT Richard Mead MD CHEMISTRY ORDERABL ES Performing Organization Address [facility]/ZIP Co de Phone Number [facility] [id number] [address] [place] [address] * (ABNORMAL) POC GLUCOSE (02/18/2020 4:57 PM CDT) GLUCOSE POC 141(H) 74 - 99 mg/dL 02/18/2020 4:57 PM CDT [facility] SERVICES [facility] CAREER CENTER ADVISOR NAME POC KATIE HERRERA 02/18/2020 4:57 PM CDT [facility] SERVICES [facility] Blood, whole 02/18/2020 4:57 PM CDT 02/18/2020 5:05 PM CDT Richard Mead MD POINT OF CARE TEST ING Performing Organization Address [facility]/ZIP Co de Phone Number [facility] CLIA# [id number] [address] [place] [address] * (ABNORMAL) POC GLUCOSE (02/18/2020 3:54 PM CDT) GLUCOSE POC 129(H) 74 - 99 mg/dL 02/18/2020 3:54 PM CDT [facility] SERVICES [facility] COMMENT, GLU POC Notified RN/MD 02/18/2020 3:54 PM CDT [facility] SERVICES - [facility] CAREER CENTER ADVISOR NAME POC MILADYS (pn-JACQUELINE )CONNIE 02/18/2020 3:54 PM CDT [facility] SERVICES [facility] Blood, whole 02/18/2020 3:54 PM CDT 02/18/2020 4:03 PM CDT Richard Mead MD POINT OF CARE TEST ING Performing Organization Address [facility]/ZIP Co de Phone Number [facility] CLIA# [id number] [address] [place] [address] * (ABNORMAL) POC GLUCOSE (02/18/2020 3:05 PM CDT) GLUCOSE POC 129(H) 74 - 99 mg/dL 02/18/2020 3:05 PM CDT [facility] CAREER CENTER ADVISOR NAME POC KATIE HERRERA 02/18/2020 3:05 PM CDT [facility] SERVICES [facility] Blood, whole 02/18/2020 3:05 PM CDT 02/18/2020 3:13 PM CDT Richard Mead MD POINT OF CARE TEST ING Performing Organization Address City/[facility]/ZIP Co de Phone Number [facility] CLIA# [id number] [address] [place] [address] * (ABNORMAL) POC GLUCOSE (02/18/2020 1:58 PM CDT) GLUCOSE POC 119(H) 74 - 99 mg/dL 02/18/2020 1:58 PM CDT [facility] SERVICES [facility] CAREER CENTER ADVISOR NAME FRANCESCA BEARDEN 02/18/2020 1:58 PM CDT [facility] SERVICES [facility] Blood, whole 02/18/2020 1:58 PM CDT 02/18/2020 2:06 PM CDT Richard Mead MD POINT OF CARE TEST ING [facility] CLIA# [id number] [address] [place] [address] * (ABNORMAL) POC GLUCOSE (02/18/2020 1:02 PM CDT) GLUCOSE POC 117(H) 74 - 99 mg/dL 02/18/2020 1:02 PM CDT [facility] CAREER CENTER ADVISOR NAME KATIE MADERA 02/18/2020 1:02 PM CDT [facility] SERVICES [facility] Blood, whole 02/18/2020 1:02 PM CDT 02/18/2020 1:10 PM CDT Richard Mead MD POINT OF CARE TEST ING Performing Organization Address City/[facility]/ZIP Co de Phone Number [facility]# [id number] [address] [place] [address] * (ABNORMAL) POC GLUCOSE (02/18/2020 11:57 AM CDT) GLUCOSE POC 107(H) 74 - 99 mg/dL 02/18/2020 11:57 AM CDT [facility] CAREER CENTER ADVISOR NAME KATIE MADERA 02/18/2020 11:57 AM CDT [facility] Blood, whole 02/18/2020 11:5 7 AM CDT 02/18/2020 12:07 PM CDT Richard Mead MD POINT OF CARE TEST ING Performing Organization Address [facility] Co pa Phone Number [facility]# [id number] [address] [place] [address] * (ABNORMAL) POC GLUCOSE (02/18/2020 11:06 AM CDT) GLUCOSE POC 121(H) 74 - 99 mg/dL 02/18/2020 11:06 AM CDT [facility] CAREER CENTER ADVISOR NAME KATIE MADERA 02/18/2020 11:06 AM CDT [facility] Blood, whole 02/18/2020 11:0 6 AM CDT 02/18/2020 11:13 AM CDT Richard Mead MD POINT OF CARE TEST ING Performing Organization Address [facility] Co de Phone Number [facility] CLIA# [id number] [address] [place] [address] * (ABNORMAL) POC GLUCOSE (02/18/2020 10:01 AM CDT) GLUCOSE POC 120(H) 74 - 99 mg/dL 02/18/2020 10:01 AM CDT [facility] CAREER CENTER ADVISOR NAME KATIE MADERA 02/18/2020 10:01 AM CDT [facility] SERVICES [facility] Blood, whole 02/18/2020 10:0 1 AM CDT 02/18/2020 10:08 AM CDT Richard Mead MD POINT OF CARE TEST ING [facility] CLIA# [id number] [address] [place] [address] * (ABNORMAL) POC GLUCOSE (02/18/2020 9:02 AM CDT) GLUCOSE POC 111(H) 74 - 99 mg/dL 02/18/2020 9:02 AM CDT [facility] SERVICES [facility] COMMENT, GLU POC Notified RN/MD 02/18/2020 9:02 AM CDT [facility] SERVICES [facility] CAREER CENTER ADVISOR NAME KATIE MADERA 02/18/2020 9:02 AM CDT [facility] Blood, whole 02/18/2020 9:02 AM CDT 02/18/2020 9:09 AM CDT Richard Mead MD POINT OF CARE TEST ING [facility] CLIA# [id number] [address] [place] [address] * (ABNORMAL) POC GLUCOSE (02/18/2020 7:59 AM CDT) GLUCOSE POC 121(H) 74 - 99 mg/dL 02/18/2020 7:59 AM CDT [facility] CAREER CENTER ADVISOR NAME KATIE MADERA 02/18/2020 7:59 AM CDT [facility] Blood, whole 02/18/2020 7:59 AM CDT 02/18/2020 8:11 AM CDT Richard Mead MD POINT OF CARE TEST ING Performing Organization Address [facility]/ZIP Co de Phone Number [facility] CLIA# [id number] [address] [place] [address] * (ABNORMAL) POC GLUCOSE (02/18/2020 7:08 AM CDT) GLUCOSE POC 121(H) 74 - 99 mg/dL 02/18/2020 7:08 AM CDT [facility] CAREER CENTER ADVISOR NAME RONEY JARAMILLO 02/18/2020 7:08 AM CDT [facility] SERVICES [facility] Blood, whole 02/18/2020 7:08 AM CDT 02/18/2020 7:17 AM CDT Richard Mead MD POINT OF CARE TEST ING Performing Organization Address [facility]/ZIP Co de Phone Number [facility] CLPA# [id number] [address] [place] [address] * (ABNORMAL) POC GLUCOSE (02/18/2020 6:00 AM CDT) GLUCOSE POC 102(H) 74 - 99 mg/dL 02/18/2020 6:00 AM CDT [facility] CAREER CENTER ADVISOR NAME POC RONEY MORELAND 02/18/2020 6:00 AM CDT [facility] SERVICES [facility] Blood, whole 02/18/2020 6:00 AM CDT 02/18/2020 6:10 AM CDT Richard Mead MD POINT OF CARE TEST ING Performing Organization Address [facility]/ZIP Co de Phone Number [facility] CLIA# [id number] [address] [place] [address] * (ABNORMAL) POC GLUCOSE (02/18/2020 4:59 AM CDT) GLUCOSE POC 105(H) 74 - 99 mg/dL 02/18/2020 4:59 AM CDT [facility] - [facility] CAREER CENTER ADVISOR NAME POC RONEY MORELAND 02/18/2020 4:59 AM CDT [facility] Blood, whole 02/18/2020 4:59 AM CDT 02/18/2020 5:10 AM CDT Jamar Pelaez MD POINT OF CARE TESTIN G [facility] SERVICES [facility]# [id number] [address] [facility] [place] [address] * (ABNORMAL) CBC WITH DIFFERENTIAL (02/18/2020 4:04 AM CDT) WBC 6.4 4.0 - 9.8 K/uL 02/18/2020 4:15 AM CDT [facility] RBC 3.58(L) 3.90 - 4.90 M/uL 02/18/2020 4:15 AM CDT [facility] HEMOGLOBIN 10.9(L) 11.8 - 14.8 g/dL 02/18/2020 4:15 AM CDT [facility] HEMATOCRIT 32.2(L) 35.5 - 44.0 % 02/18/2020 4:15 AM CDT [facility] MCV 89.9 82.0 - 99.0 fL 02/18/2020 4:15 AM CDT [facility] MCH 30.4 27.2 - 32.6 pg 02/18/2020 4:15 AM CDT [facility] MCHC 33.9 31.5 - 35.5 g/dL 02/18/2020 4:15 AM CDT [facility] RDW 15.3(H) 11.5 - 14.5 % 02/18/2020 4:15 AM CDT [facility] RDW-STDEV 50.3(H) 37.1 - 48.7 fL 02/18/2020 4:15 AM CDT [facility] PLATELETS 218 140 - 350 K/uL 02/18/2020 4:15 AM CDT [facility] MPV 9.1(L) 9.3 - 12.4 fL 02/18/2020 4:15 AM CDT [facility] NEUTROPHILS 72 % 02/18/2020 4:15 AM CDT [facility] LYMPHOCYTES 18 % 02/18/2020 4:15 AM CDT [facility] - [facility] MONOCYTES 7 % 02/18/2020 4:15 AM CDT [facility] - [facility] EOSINOPHILS 1 % 02/18/2020 4:15 AM CDT [facility] BASOPHILS 1 % 02/18/2020 4:15 AM CDT [facility] IMMATURE GRANULOCYTES 1 % 02/18/2020 4:15 AM T [facility] Comment:IG (Immature Granulo cyte) count includes Metamyelocytes, Myelocytes, and Promyelocytes NEUTROPHIL ABSOLUTE 4.59 1.90 - 7.00 K/uL 02/18/2020 4:15 AM CDT [facility] LYMPHOCYTE ABSOLUTE 1.17 0.70 - 4.50 K/uL 02/18/2020 4:15 AM CDT [facility] - [facility] MONOCYTE ABSOLUTE 0.47 0.10 - 1.30 K/uL 02/18/2020 4:15 AM CDT [facility] - [facility] EOSINOPHIL ABSOLUTE 0.08 0.00 - 0.70 K/uL 02/18/2020 4:15 AM CDT [facility] SERVICES - . [facility] BASOPHILS ABSOLUTE 0.03 0.00 - 0.20 K/uL 02/18/2020 4:15 AM CDT [facility] - [facility] IMMATURE GRANULOCYTES ABSOLUTE 0.03 0.00 - 0.03 K/uL 02/18/2020 4:15 AM T [facility] SERVICES - [facility] Blood Venipuncture / Unknown 02/18/2020 4:04 AM CDT 02/18/2020 4:10 AM CDT Jamar Pelaez MD HEMATOLOGY ORDERABLE S Performing Organization Address [facility]/ZIP Co de Phone Number [facility]# [id number] [address] [place] [address] * (ABNORMAL) TRIGLYCERIDE (02/18/2020 4:04 AM CDT) TRIGLYCERIDE 744(H) <150 mg/dL 02/18/2020 4:44 AM CDT [facility] Blood Venipuncture / Unknown 02/18/2020 4:04 AM CDT 02/18/2020 4:10 AM CDT Narrative [facility] - 02/18/2020 4:44 AM CDT TRIGLYCERIDES ? mg/dL Normal ?< 150 Borderline High ?150 - 199 High ? 200 - 499 Very High ? >= 500 Based on AHA/NCEP Guidelines. Alize Arteaga MD CHEMISTRY ORDER OSVALDO Performing Organization Address [facility] Co de Phone Number [facility]# [id number] [address] [place] [address] * POC GLUCOSE (02/18/2020 4:02 AM CDT) GLUCOSE POC 98 74 - 99 mg/dL 02/18/2020 4:02 AM CDT [facility] CAREER CENTER ADVISOR NAME POC RONEY MORELAND 02/18/2020 4:02 AM CDT [facility] Blood, whole 02/18/2020 4:02 AM CDT 02/18/2020 4:12 AM CDT Jamar Pelaez MD POINT OF CARE TESTIN G Performing Organization Address [facility]/ZIP Co de Phone Number [facility] CLIA# [id number] [address] [place] [address] * (ABNORMAL) POC GLUCOSE (02/18/2020 3:00 AM CDT) GLUCOSE POC 117(H) 74 - 99 mg/dL 02/18/2020 3:00 AM CDT [facility] SERVICES [facility] CAREER CENTER ADVISOR NAME RONEY JARAMILLO 02/18/2020 3:00 AM CDT [facility] SERVICES [facility] Blood, whole 02/18/2020 3:00 AM CDT 02/18/2020 3:14 AM CDT Jamar Pelaez MD POINT OF CARE TESTJERONIMO G [facility]# [id number] [address] [place] [address] * (ABNORMAL) POC GLUCOSE (02/18/2020 2:08 AM CDT) GLUCOSE POC 123(H) 74 - 99 mg/dL 02/18/2020 2:08 AM CDT [facility] CAREER CENTER ADVISOR NAME RONEY JARAMILLO 02/18/2020 2:08 AM CDT [facility] Blood, whole 02/18/2020 2:08 AM CDT 02/18/2020 2:14 AM CDT Jamar Pelaez MD POINT OF CARE FLY Serrano [facility]# [id number] [address] [place] [address] * (ABNORMAL) POC GLUCOSE (02/18/2020 12:57 AM CDT) GLUCOSE POC 146(H) 74 - 99 mg/dL 02/18/2020 12:57 AM CDT [facility] CAREER CENTER ADVISOR NAME RONEY JARAMILLO 02/18/2020 12:57 AM CDT [facility] SERVICES [facility] Blood, whole 02/18/2020 12:5 7 AM CDT 02/18/2020 1:03 AM CDT Jamar Pelaez MD POINT OF CARE TESTIN G [facility] CLIA# [id number] [address] [facility] [address] [address] * (ABNORMAL) BASIC METABOLIC PANEL (02/17/2020 11:57 PM CDT) SODIUM 138 136 - 145 mmol/L 02/18/2020 1:13 AM CDT [facility] POTASSIUM 3.8 3.5 - 5.0 mmol/L 02/18/2020 1:13 AM T [facility] Comment:Slightly hemolyzed. Result may be falsely elevated. CHLORIDE 109(H) 98 - 107 mmol/L 02/18/2020 1:13 AM T [facility] CO2 21(L) 22 - 29 mmol/L 02/18/2020 1:13 AM T [facility] CALCIUM 7.6(L) 8.6 - 10.2 mg/dL 02/18/2020 1:13 AM T [facility] BUN 2(L) 6 - 20 mg/dL 02/18/2020 1:13 AM T [facility] CREATININE 0.43(L) 0.51 - 0.95 mg/dL 02/18/2020 1:13 AM T [facility] GLUCOSE 165(H) 74 - 99 mg/dL 02/18/2020 1:13 AM T [facility] GFR >60 >=60 mL/min/1.7 3 sq meter 02/18/2020 1:13 AM T [facility] Comment: eGFR has not [...] GFR, >60 >=60 mL/min/1.7 3 sq meter 02/18/2020 1:13 AM CDT [facility] LABORATORY SERVICES [facility] ANION GAP 8 8 - 16 mmol/L 02/18/2020 1:13 AM CDT [facility]OR[facility]ORY SERVICES [facility] Blood Venipuncture / Unknown 02/17/2020 11:57 PM CDT 02/18/2020 12:14 AM CDT Jamar Pelaez MD CHEMISTRY ORDERABLES Performing Organization Address [facility]/ZIP Co de Phone Number [facility]# [id number] [address] [place] [address] * (ABNORMAL) POC GLUCOSE (02/17/2020 11:55 PM CDT) GLUCOSE POC 149(H) 74 - 99 mg/dL 02/17/2020 11:55 PM CDT [facility] CAREER CENTER ADVISOR NAME POC RONEY MORELAND 02/17/2020 11:55 PM CDT [facility]ORATORY SERVICES [facility] Blood, whole 02/17/2020 11:5 5 PM CDT 02/18/2020 12:05 AM CDT Jamar Pelaez MD POINT OF CARE TESTIN G Performing Organization Address [facility]/ZIP Co de Phone Number [facility]# [id number] [address] [place] [address] * (ABNORMAL) POC GLUCOSE (02/17/2020 10:58 PM CDT) GLUCOSE POC 139(H) 74 - 99 mg/dL 02/17/2020 10:58 PM CDT [facility] CAREER CENTER ADVISOR NAME POC RONEY MORELAND 02/17/2020 10:58 PM CDT [facility] Blood, whole 02/17/2020 10:5 8 PM CDT 02/17/2020 11:05 PM CDT Jamar Pelaez MD POINT OF CARE TESTIN G [facility] CLIA# [id number] [address] [place] [address] * (ABNORMAL) POC GLUCOSE (02/17/2020 9:58 PM CDT) GLUCOSE POC 120(H) 74 - 99 mg/dL 02/17/2020 9:58 PM CDT [facility] CAREER CENTER ADVISOR NAME POC RONEY MORELAND 02/17/2020 9:58 PM CDT [facility] Blood, whole 02/17/2020 9:58 PM CDT 02/17/2020 10:05 PM CDT Jamar Pelaez MD POINT OF CARE TESTIN G Performing Organization Address [facility]/ZIP Co de Phone Number [facility] CLIA# [id number] [address] [place] [address] * (ABNORMAL) POC GLUCOSE (02/17/2020 8:53 PM CDT) GLUCOSE POC 117(H) 74 - 99 mg/dL 02/17/2020 8:53 PM CDT [facility] CAREER CENTER ADVISOR NAME POC RONEY MORELAND 02/17/2020 8:53 PM CDT [facility] Blood, whole 02/17/2020 8:53 PM CDT 02/17/2020 9:03 PM CDT Jamar Pelaez MD POINT OF CARE TESTIN Maggie [facility] CLIA# [id number] [address] [place] [address] * (ABNORMAL) POC GLUCOSE (02/17/2020 8:02 PM CDT) GLUCOSE POC 118(H) 74 - 99 mg/dL 02/17/2020 8:02 PM CDT [facility] LABORATORY SERVICES [facility] CAREER CENTER ADVISOR NAME POC RONEY MORELAND 02/17/2020 8:02 PM CDT [facility] LABOR[facility] Blood, whole 02/17/2020 8:02 PM CDT 02/17/2020 8:10 PM CDT Jamar Pelaez MD POINT OF CARE TESTIN G [facility] [id number] [address] [facility] [address] [id number] * (ABNORMAL) POC GLUCOSE (02/17/2020 7:01 PM CDT) GLUCOSE POC 116(H) 74 - 99 mg/dL 02/17/2020 7:01 PM CDT [facility] ADVISOR NAME POC KATIE HERRERA 02/17/2020 7:01 PM CDT [facility] Blood, whole 02/17/2020 7:01 PM CDT 02/17/2020 7:09 PM CDT Jamar Pelaez MD POINT OF CARE TESTJERONIMO G [facility] CLIA# [id number] [address] [place] [address] * (ABNORMAL) POC GLUCOSE (02/17/2020 6:00 PM CDT) GLUCOSE POC 140(H) 74 - 99 mg/dL 02/17/2020 6:00 PM CDT [facility] COMMENT, GLU POC Notified RN/MD 02/17/2020 6:00 PM CDT [facility] ADVISOR NAME POC ELIGIO MARTIN 02/17/2020 6:00 PM CDT [facility] Blood, whole 02/17/2020 6:00 PM CDT 02/17/2020 6:08 PM CDT Jamar Pelaez MD POINT OF CARE TESTIN Performing Organization Address [facility] Co de Phone Number [facility] [employer] [facility] CLIA# [id number] [address] [place] [address] * (ABNORMAL) POC GLUCOSE (02/17/2020 4:59 PM CDT) GLUCOSE POC 175(H) 74 - 99 mg/dL 02/17/2020 4:59 PM CDT [facility] CAREER CENTER ADVISOR NAME POC KATIE HERRERA 02/17/2020 4:59 PM CDT [facility] LAB[facility]ATORY [facility] Blood, whole 02/17/2020 4:59 PM CDT 02/17/2020 5:07 PM CDT Jamar Pelaez MD POINT OF CARE TESTJERONIMO G Performing Organization Address [facility] Co de Phone Number [facility] [employer] CLIA# [id number] [address] [place] [address] * (ABNORMAL) BASIC METABOLIC PANEL (02/17/2020 4:10 PM CDT) SODIUM 139 136 - 145 mmol/L 02/17/2020 5:42 PM CDT [facility] LABORATORY [facility] POTASSIUM 3.9 3.5 - 5.0 mmol/L 02/17/2020 5:42 PM CDT [facility] LABORATORY SERVICES [facility] Comment:Moderate hemolysis p resent. Can cause significant falsely elevated result. Redraw if indicated. CHLORIDE 109(H) 98 - 107 mmol/L 02/17/2020 5:42 PM CDT [facility] LABORATORY [facility] CO2 18(L) 22 - 29 mmol/L 02/17/2020 5:42 PM CDT [facility] LABORATORY [facility] CALCIUM 7.5(L) 8.6 - 10.2 mg/dL 02/17/2020 5:42 PM CDT [facility] LABORATORY [facility] BUN 2(L) 6 - 20 mg/dL 02/17/2020 5:42 PM CDT [facility] CREATININE 0.38(L) 0.51 - 0.95 mg/dL 02/17/2020 5:42 PM CDT [facility] GLUCOSE 185(H) 74 - 99 mg/dL 02/17/2020 5:42 PM CDT [facility] GFR >60 >=60 mL/min/1.7 3 sq meter 02/17/2020 5:42 PM CDT [facility] Comment: eGFR has not been validated for [...] GFR, >60 >=60 mL/min/1.7 3 sq meter 02/17/2020 5:42 PM CDT [facility] LABORATORY [facility] ANION GAP 12 8 - 16 mmol/L 02/17/2020 5:42 PM CDT [facility] LABORATORY [facility] Blood Venipuncture / Unknown 02/17/2020 4:10 PM CDT 02/17/2020 4:24 PM CDT Jamar Pelaez MD CHEMISTRY ORDERABLES [facility]# [id number] [address] [place] [address] * (ABNORMAL) POC GLUCOSE (02/17/2020 4:03 PM CDT) GLUCOSE POC 166(H) 74 - 99 mg/dL 02/17/2020 4:03 PM CDT [facility] LABORATORY [facility] CAREER CENTER ADVISOR NAME POC KATIE HERRERA 02/17/2020 4:03 PM CDT [facility] LABORATORY SERVICES [facility] Blood, whole 02/17/2020 4:03 PM CDT 02/17/2020 4:18 PM CDT Jamar Pelaez MD POINT OF CARE TESTIN G Performing Organization Address [facility]/ZIP Co de Phone Number [facility] LABORATORY [facility] CLIA# [id number] [address] [place] [address] * (ABNORMAL) POC GLUCOSE (02/17/2020 2:59 PM CDT) GLUCOSE POC 153(H) 74 - 99 mg/dL 02/17/2020 2:59 PM CDT [facility] LABORATORY SERVICES [facility] COMMENT, GLU POC Notified RN/MD 02/17/2020 2:59 PM CDT [facility] LABORATORY SERVICES [facility] CAREER CENTER ADVISOR NAME POC FRANCESCA ACUNA 02/17/2020 2:59 PM CDT [facility] LABORATORY SERVICES [facility] Blood, whole 02/17/2020 2:59 PM CDT 02/17/2020 3:05 PM CDT Jamar Pelaez MD POINT OF CARE TESTIN G Performing Organization Address [facility]/ZIP Co de Phone Number [facility] CLIA# [id number] [address] [place] [address] * (ABNORMAL) POC GLUCOSE (02/17/2020 2:05 PM CDT) GLUCOSE POC 149(H) 74 - 99 mg/dL 02/17/2020 2:05 PM CDT [facility] LABORATORY SERVICES [facility] CAREER CENTER ADVISOR NAME POC KATIE HERRERA 02/17/2020 2:05 PM CDT [facility] LABORATORY SERVICES [facility] Blood, whole 02/17/2020 2:05 PM CDT 02/17/2020 2:13 PM CDT Jamar Pelaez MD POINT OF CARE TESTIN G [facility] CLIA# [id number] [address] [place] [address] * (ABNORMAL) POC GLUCOSE (02/17/2020 1:01 PM CDT) GLUCOSE POC 125(H) 74 - 99 mg/dL 02/17/2020 1:01 PM CDT [facility] LABORATORY [facility] CAREER CENTER ADVISOR NAME KATIE MADERA 02/17/2020 1:01 PM CDT [facility] LABORATORY SERVICES [facility] Blood, whole 02/17/2020 1:01 PM CDT 02/17/2020 1:23 PM CDT Jamar Pelaez MD POINT OF CARE TESTIN Maggie Performing Organization Address [facility]/ZIP Co de Phone Number [facility] CLIA# [id number] [address] [place] [address] * (ABNORMAL) POC GLUCOSE (02/17/2020 12:00 PM CDT) GLUCOSE POC 116(H) 74 - 99 mg/dL 02/17/2020 12:00 PM CDT [facility] LABORATORY [facility] CAREER CENTER ADVISOR NAME KATIE MADERA 02/17/2020 12:00 PM CDT [facility] LABORATORY [facility] Blood, whole 02/17/2020 12:0 0 PM CDT 02/17/2020 12:33 PM CDT Jamar Pelaez MD POINT OF CARE TESTIN Maggie Performing Organization Address City/[facility]/ZIP Co de Phone Number [facility] CLIA# [id number] [address] [place] [address] * (ABNORMAL) POC GLUCOSE (02/17/2020 10:58 AM CDT) GLUCOSE POC 106(H) 74 - 99 mg/dL 02/17/2020 10:58 AM CDT [facility] LABORATORY [facility] CAREER CENTER ADVISOR NAME KATIE MADERA 02/17/2020 10:58 AM CDT [facility] LABORATORY SERVICES [facility] Blood, whole 02/17/2020 10:5 8 AM CDT 02/17/2020 12:22 PM CDT Jamar Pelaez MD POINT OF CARE TESTIN Maggie [facility] LABORATORY [facility] CLIA# [id number] [address] [place] [address] * (ABNORMAL) POC GLUCOSE (02/17/2020 10:03 AM CDT) GLUCOSE POC 126(H) 74 - 99 mg/dL 02/17/2020 10:03 AM CDT [facility] LABORATORY SERVICES [facility] CAREER CENTER ADVISOR NAME KATIE MADERA 02/17/2020 10:03 AM CDT [facility] LABORATORY SERVICES [facility] Blood, whole 02/17/2020 10:0 3 AM CDT 02/17/2020 12:21 PM CDT Jamar Pelaez MD POINT OF CARE TESTIN Maggie Performing Organization Address [facility] Co pa Phone Number [facility] CLIA# [id number] [address] [place] [address] * (ABNORMAL) POC GLUCOSE (02/17/2020 9:00 AM CDT) GLUCOSE POC 115(H) 74 - 99 mg/dL 02/17/2020 9:00 AM CDT [facility] LAB[facility]AT[facility] SERVICES [facility] CAREER CENTER ADVISOR NAME KATIE MADERA 02/17/2020 9:00 AM CDT [facility] LABORATORY SERVICES [facility] Blood, whole 02/17/2020 9:00 AM CDT 02/17/2020 12:20 PM CDT Jamar Pelaez MD POINT OF CARE TESTIN Maggie Performing Organization Address City/[facility]/ZIP Co de Phone Number [facility] LAB[facility] CLIA# [id number] [address] [facility] [address] [address] * (ABNORMAL) BASIC METABOLIC PANEL (02/17/2020 8:11 AM CDT) SODIUM 138 136 - 145 mmol/L 02/17/2020 8:52 AM CDT [facility] LABORATORY SERVICES [facility] POTASSIUM 4.5 3.5 - 5.0 mmol/L 02/17/2020 8:52 AM T [employer] LABORATORY SERVICES [facility] Comment:Moderate hemolysis p resent. Can cause significant falsely elevated result. Redraw if indicated. CHLORIDE 108(H) 98 - 107 mmol/L 02/17/2020 8:52 AM T [employer] SERVICES [facility] CO2 22 22 - 29 mmol/L 02/17/2020 8:52 AM T [employer] SERVICES [facility] CALCIUM 7.7(L) 8.6 - 10.2 mg/dL 02/17/2020 8:52 AM T [employer] SERVICES [facility] BUN 2(L) 6 - 20 mg/dL 02/17/2020 8:52 AM [employer] SERVICES [facility] CREATININE 0.49(L) 0.51 - 0.95 mg/dL 02/17/2020 8:52 AM T [employer] SERVICES [facility] GLUCOSE 147(H) 74 - 99 mg/dL 02/17/2020 8:52 AM [employer] SERVICES [facility] GFR >60 >=60 mL/min/1.7 3 sq meter 02/17/2020 8:52 AM [employer] LABORATORY SERVICES [facility] Comment: eGFR has not been validated [...] GFR, >60 >=60 mL/min/1.7 3 sq meter 02/17/2020 8:52 AM CDT [facility] LABORATORY SERVICES [facility] ANION GAP 8 8 - 16 mmol/L 02/17/2020 8:52 AM CDT [facility] LABORATORY [facility] Blood Venipuncture / Unknown 02/17/2020 8:11 AM CDT 02/17/2020 8:15 AM CDT Jamar Pelaez MD CHEMISTRY ORDERABLES Performing Organization Address [facility]/ZIP Co de Phone Number [facility]# [id number] [address] [place] [address] * (ABNORMAL) POC GLUCOSE (02/17/2020 8:03 AM CDT) GLUCOSE POC 132(H) 74 - 99 mg/dL 02/17/2020 8:03 AM CDT [facility] LABORATORY [facility] CAREER CENTER ADVISOR NAME POC KATIE HERRERA 02/17/2020 8:03 AM CDT [facility] LABORATORY [facility] Blood, whole 02/17/2020 8:03 AM CDT 02/17/2020 12:18 PM CDT Jamar Pelaez MD POINT OF CARE TESTJERONIMO Serrano Performing Organization Address [facility] Co de Phone Number [facility]# [id number] [address] [place] [address] * (ABNORMAL) POC GLUCOSE (02/17/2020 6:58 AM CDT) GLUCOSE POC 144(H) 74 - 99 mg/dL 02/17/2020 6:58 AM CDT [facility] LABORATORY [facility] CAREER CENTER ADVISOR NAME POC RONEY MORELAND 02/17/2020 6:58 AM CDT [facility] LABORATORY [facility] Blood, whole 02/17/2020 6:58 AM CDT 02/17/2020 7:09 AM CDT Jamar Pelaez MD POINT OF CARE FLY Serrano Performing Organization Address [facility]/ZIP Co de Phone Number [employer] [facility] CLIA# [id number] [address] [place] [address] * (ABNORMAL) CBC WITH DIFFERENTIAL (02/17/2020 6:32 AM CDT) WBC 13.1(H) 4.0 - 9.8 K/uL 02/17/2020 6:46 AM CDT [facility] LABORATORY SERVICES - [facility] RBC 3.76(L) 3.90 - 4.90 M/uL 02/17/2020 6:46 AM CDT [facility] LABORATORY SERVICES - [facility] HEMOGLOBIN 11.5(L) 11.8 - 14.8 g/dL 02/17/2020 6:46 AM CDT [facility] LABORATORY SERVICES - [facility] HEMATOCRIT 33.9(L) 35.5 - 44.0 % 02/17/2020 6:46 AM CDT [facility] LABORATORY SERVICES - [facility] MCV 90.2 82.0 - 99.0 fL 02/17/2020 6:46 AM CDT [facility] LABORATORY SERVICES - [facility] MCH 30.6 27.2 - 32.6 pg 02/17/2020 6:46 AM CDT [facility] LABORATORY SERVICES - [facility] MCHC 33.9 31.5 - 35.5 g/dL 02/17/2020 6:46 AM CDT [facility] LABORATORY SERVICES - [facility] RDW 14.9(H) 11.5 - 14.5 % 02/17/2020 6:46 AM CDT [facility] LABORATORY SERVICES - [facility] RDW-STDEV 49.6(H) 37.1 - 48.7 fL 02/17/2020 6:46 AM CDT [facility] LABORATORY SERVICES - [facility] PLATELETS 226 140 - 350 K/uL 02/17/2020 6:46 AM CDT [facility] LABORATORY SERVICES - [facility] MPV 8.8(L) 9.3 - 12.4 fL 02/17/2020 6:46 AM CDT [facility] LABORATORY SERVICES - [facility] NEUTROPHILS 81 % 02/17/2020 6:46 AM CDT [facility] LABORATORY SERVICES - . [facility] LYMPHOCYTES 13 % 02/17/2020 6:46 AM CDT [facility] LABORATORY SERVICES - . [facility] MONOCYTES 4 % 02/17/2020 6:46 AM CDT [facility] LABORATORY SERVICES - [facility] EOSINOPHILS 1 % 02/17/2020 6:46 AM CDT [facility] LABORATORY SERVICES - [facility] BASOPHILS 0 % 02/17/2020 6:46 AM CDT [facility] LABORATORY [facility] IMMATURE GRANULOCYTES 1 % 02/17/2020 6:46 AM CDT [facility] LABORATORY SERVICES - [facility] Comment:IG (Immature Granulo cyte) count includes Metamyelocytes, Myelocytes, and Promyelocytes NEUTROPHIL ABSOLUTE 10.64(H) 1.90 - 7.00 K/uL 02/17/2020 6:46 AM CDT [facility] LABORATORY SERVICES - [facility] LYMPHOCYTE ABSOLUTE 1.70 0.70 - 4.50 K/uL 02/17/2020 6:46 AM CDT [facility] LABORATORY [facility] MONOCYTE ABSOLUTE 0.57 0.10 - 1.30 K/uL 02/17/2020 6:46 AM CDT [facility] LABORATORY SERVICES [facility] EOSINOPHIL ABSOLUTE 0.08 0.00 - 0.70 K/uL 02/17/2020 6:46 AM CDT [facility] LABORATORY SERVICES - . [facility] BASOPHILS ABSOLUTE 0.04 0.00 - 0.20 K/uL 02/17/2020 6:46 AM CDT [facility] LABORATORY SERVICES - [facility] IMMATURE GRANULOCYTES ABSOLUTE 0.07(H) 0.00 - 0.03 K/uL 02/17/2020 6:46 AM T [facility] Blood Venipuncture / Unknown 02/17/2020 6:32 AM CDT 02/17/2020 6:35 AM CDT Jamar Pelaez MD HEMATOLOGY ORDERABLE S [facility] CLPA# [id number] [address] [facility] [address] [place] [id number] * (ABNORMAL) POC GLUCOSE (02/17/2020 5:05 AM CDT) GLUCOSE POC 127(H) 74 - 99 mg/dL 02/17/2020 5:05 AM CDT [facility] LABORATORY SERVICES [facility] CAREER CENTER ADVISOR NAME POC RONEY MORELAND 02/17/2020 5:05 AM CDT [facility] LABORATORY [facility] Blood, whole 02/17/2020 5:05 AM CDT 02/17/2020 5:15 AM CDT Jamar Pelaez MD POINT OF CARE TESTIN G [facility] CLIA# [id number] [address] [place] [address] * (ABNORMAL) POC GLUCOSE (02/17/2020 4:00 AM CDT) GLUCOSE POC 135(H) 74 - 99 mg/dL 02/17/2020 4:00 AM CDT [facility] LABORATORY [facility] CAREER CENTER ADVISOR NAME POC RONEY MORELAND 02/17/2020 4:00 AM CDT [facility] LABORATORY [facility] Blood, whole 02/17/2020 4:00 AM CDT 02/17/2020 4:11 AM CDT Jamar Pelaez MD POINT OF CARE TESTJERONIMO Serrano Performing Organization Address [facility]/ZIP Co de Phone Number [facility] CLIA# [id number] [address] [place] [address] * (ABNORMAL) POC GLUCOSE (02/17/2020 2:59 AM CDT) GLUCOSE POC 138(H) 74 - 99 mg/dL 02/17/2020 2:59 AM CDT [facility] LABORATORY [facility] CAREER CENTER ADVISOR NAME POC RONEY MORELAND 02/17/2020 2:59 AM CDT [facility] LABORATORY [facility] Blood, whole 02/17/2020 2:59 AM CDT 02/17/2020 3:12 AM CDT Jamar Pelaez MD POINT OF CARE TESTIN Maggie [facility] LABORATORY [facility] CLIA# [id number] [address] [place] [address] * (ABNORMAL) POC GLUCOSE (02/17/2020 2:05 AM CDT) GLUCOSE POC 147(H) 74 - 99 mg/dL 02/17/2020 2:05 AM CDT [facility] LABORATORY [facility] COMMENT, GLU POC Notified RN/MD 02/17/2020 2:05 AM CDT [facility] LABORATORY [facility] CAREER CENTER ADVISOR NAME POC IVETT TABOR 02/17/2020 2:05 AM CDT [facility] Blood, whole 02/17/2020 2:05 AM CDT 02/17/2020 2:13 AM CDT Jamar Pelaez MD POINT OF CARE TESTIN G [facility]# [id number] [address] [place] [address] [place] [address] * (ABNORMAL) BASIC METABOLIC PANEL (02/17/2020 2:00 AM CDT) Pathologist [facility] SODIUM 138 136 - 145 mmol/L 02/17/2020 2:43 AM T [facility] LABORATORY [facility] POTASSIUM 4.0 3.5 - 5.0 mmol/L 02/17/2020 2:43 AM T [facility] Comment:Moderate hemolysis p resent. Can cause significant falsely elevated result. Redraw if indicated. CHLORIDE 105 98 - 107 mmol/L 02/17/2020 2:43 AM CDT [facility] LABORATORY [facility] CO2 21(L) 22 - 29 mmol/L 02/17/2020 2:43 AM T [facility] CALCIUM 7.9(L) 8.6 - 10.2 mg/dL 02/17/2020 2:43 AM CDT [facility] LABORATORY [facility] BUN 3(L) 6 - 20 mg/dL 02/17/2020 2:43 AM T [facility] CREATININE 0.39(L) 0.51 - 0.95 mg/dL 02/17/2020 2:43 AM CDT [facility] GLUCOSE 165(H) 74 - 99 mg/dL 02/17/2020 2:43 AM CDT [facility] GFR >60 >=60 mL/min/1.7 3 sq meter 02/17/2020 2:43 AM CDT [facility] Comment: eGFR has not [...] GFR, >60 >=60 mL/min/1.7 3 sq meter 02/17/2020 2:43 AM CDT [facility] ANION GAP 12 8 - 16 mmol/L 02/17/2020 2:43 AM CDT [facility] Blood Venipuncture / Unknown 02/17/2020 2:00 AM CDT 02/17/2020 2:02 AM CDT Jamar Pelaez MD CHEMISTRY ORDERABLES [facility]# [id number] [address] [place] [address] * (ABNORMAL) TRIGLYCERIDE (02/17/2020 1:10 AM CDT) TRIGLYCERIDE 1,105(H) <150 mg/dL 02/17/2020 1:57 AM CDT [facility] Blood Venipuncture / Unknown 02/17/2020 1:10 AM CDT 02/17/2020 1:13 AM CDT Narrative [facility] - 02/17/2020 1:57 AM CDT TRIGLYCERIDES ? mg/dL Normal ?< 150 Borderline High ?150 - 199 High ? 200 - 499 Very High ? >= 500 Based on AHA/NCEP Guidelines. Alize Arteaga MD CHEMISTRY ORDER OSVALDO [facility] LABORATORY [facility]# [id number] [address] [place] [address] * (ABNORMAL) POC GLUCOSE (02/17/2020 12:57 AM CDT) GLUCOSE POC 147(H) 74 - 99 mg/dL 02/17/2020 12:57 AM CDT [facility] LABORATORY [facility] CAREER CENTER ADVISOR NAME POC RONEY MORELAND 02/17/2020 12:57 AM CDT [facility] Blood, whole 02/17/2020 12:5 7 AM CDT 02/17/2020 1:04 AM CDT Jamar Pelaez MD POINT OF CARE TESTIN Maggie Performing Organization Address [facility] Co de Phone Number [facility]# [id number] [address] [place] [address] * (ABNORMAL) POC GLUCOSE (02/16/2020 11:55 PM CDT) GLUCOSE POC 154(H) 74 - 99 mg/dL 02/16/2020 11:55 PM CDT [facility] LABORATORY [facility] CAREER CENTER ADVISOR NAME POC RONEY MORELAND 02/16/2020 11:55 PM CDT [facility] SERVICES [facility] Blood, whole 02/16/2020 11:5 5 PM CDT 02/17/2020 12:05 AM CDT Jamar Pelaez MD POINT OF CARE TESTJERONIMO Serrano Performing Organization Address [facility]/ZIP Co de Phone Number [facility] LABORATORY [facility]# [id number] [address] [place] [address] * (ABNORMAL) POC GLUCOSE (02/16/2020 10:58 PM CDT) GLUCOSE POC 159(H) 74 - 99 mg/dL 02/16/2020 10:58 PM CDT [facility] LABORATORY SERVICES [facility] CAREER CENTER ADVISOR NAME POC RONEY MORELAND 02/16/2020 10:58 PM CDT [facility] LABORATORY SERVICES - [facility] Blood, whole 02/16/2020 10:5 8 PM CDT 02/16/2020 11:12 PM CDT Jamar Pelaez MD POINT OF CARE TESTIN G Performing Organization Address City/[facility]/ZIP Co de Phone Number [facility] LABORATORY [facility] CLIA# [id number] [address] [place] [address] * (ABNORMAL) POC GLUCOSE (02/16/2020 9:57 PM CDT) GLUCOSE POC 140(H) 74 - 99 mg/dL 02/16/2020 9:57 PM CDT [facility] LABORATORY SERVICES [facility] COMMENT, GLU POC Notified RN/ 02/16/2020 9:57 PM CDT [facility] LABORATORY SERVICES [facility] CAREER CENTER ADVISOR NAME POC IVETT TABOR 02/16/2020 9:57 PM CDT [facility] LABORATORY SERVICES [facility] Blood, whole 02/16/2020 9:57 PM CDT 02/16/2020 10:04 PM CDT Jamar Pelaez MD POINT OF CARE TESTIN G [facility] LABORATORY [facility] CLIA# [id number] [address] [place] [address] * (ABNORMAL) POC GLUCOSE (02/16/2020 8:57 PM CDT) GLUCOSE POC 125(H) 74 - 99 mg/dL 02/16/2020 8:57 PM CDT [facility] LABORATORY SERVICES [facility] CAREER CENTER ADVISOR NAME POC RONEY MORELAND 02/16/2020 8:57 PM CDT [facility] LABORATORY SERVICES [facility] Blood, whole 02/16/2020 8:57 PM CDT 02/16/2020 9:09 PM CDT Jamar Pelaez MD POINT OF CARE TESTIN Performing Organization Address [facility]/ZIP Co de Phone Number [facility] LABORATORY [facility] CLIA# [id number] [address] [place] [place] [address] * (ABNORMAL) POC GLUCOSE (02/16/2020 7:51 PM CDT) GLUCOSE POC 135(H) 74 - 99 mg/dL 02/16/2020 7:51 PM CDT [facility] LABORATORY [facility] COMMENT, GLU POC Notified RN/MD 02/16/2020 7:51 PM CDT [facility] LABORATORY [facility] CAREER CENTER ADVISOR NAME POC IVETT TABOR 02/16/2020 7:51 PM CDT [facility] Blood, whole 02/16/2020 7:51 PM CDT 02/16/2020 7:59 PM CDT Jamar Pelaez MD POINT OF CARE TESTJERONIMO Serrano Performing Organization Address [facility] Co de Phone Number [facility] CLIA# [id number] [address] [facility] [place] [address] * (ABNORMAL) POC GLUCOSE (02/16/2020 6:55 PM CDT) GLUCOSE POC 142(H) 74 - 99 mg/dL 02/16/2020 6:55 PM CDT [facility] CAREER CENTER ADVISOR NAME POC JANIE ELIZABETH 02/16/2020 6:55 PM CDT [facility] Blood, whole 02/16/2020 6:55 PM CDT 02/16/2020 7:04 PM CDT Jamar Pelaez MD POINT OF CARE TESTIN Maggie Performing Organization Address City/[facility]/ZIP Co de Phone Number [facility]# [id number] [address] [place] [address] * (ABNORMAL) POC GLUCOSE (02/16/2020 5:59 PM CDT) GLUCOSE POC 127(H) 74 - 99 mg/dL 02/16/2020 5:59 PM CDT [facility] CAREER CENTER ADVISOR NAME JANIE WETZEL 02/16/2020 5:59 PM CDT [facility] Blood, whole 02/16/2020 5:59 PM CDT 02/16/2020 6:07 PM CDT Jamar Pelaez MD POINT OF CARE TESTJERONIMO Performing Organization Address [facility]/ZIP Co de Phone Number [facility] CLIA# [id number] [address] [place] [address] * (ABNORMAL) POC GLUCOSE (02/16/2020 5:16 PM CDT) GLUCOSE POC 128(H) 74 - 99 mg/dL 02/16/2020 5:16 PM CDT [facility] CAREER CENTER ADVISOR NAME JANIE WETZEL 02/16/2020 5:16 PM CDT [facility] Blood, whole 02/16/2020 5:16 PM CDT 02/16/2020 5:23 PM CDT Jamar Pelaez MD POINT OF CARE TESTIN Performing Organization Address City/[facility]/ZIP Co de Phone Number [facility]# [id number] [address] [place] [address] * (ABNORMAL) POC GLUCOSE (02/16/2020 4:13 PM CDT) GLUCOSE POC 139(H) 74 - 99 mg/dL 02/16/2020 4:13 PM CDT [facility] COMMENT, GLU POC Notified RN/ 02/16/2020 4:13 PM CDT [facility] CAREER CENTER ADVISOR NAME POC ELIGIO MARTIN 02/16/2020 4:13 PM CDT [facility] Blood, whole 02/16/2020 4:13 PM CDT 02/16/2020 4:20 PM CDT Jamar Pelaez MD POINT OF CARE TESTIN G Performing Organization Address [facility]/ZIP Co de Phone Number [facility] CLIA# [id number] [address] [place] [address] * (ABNORMAL) HEMOGLOBIN A1C (02/16/2020 3:24 PM CDT) HEMOGLOBIN A1C 8.6(H) <5.7 % 02/16/2020 4:22 PM CDT [facility] EST. AVG GLUCOSE, A1C 200 mg/dL 02/16/2020 4:22 PM CDT [facility] Blood Venipuncture / Unknown 02/16/2020 3:24 PM CDT 02/16/2020 3:38 PM CDT Narrative [facility] - 02/16/2020 4:22 PM CDT HGB A1C INTERPRETATION NORMAL: ? <5.7% PRE-DIABETES: 5.7 - 6.4% DIABETES: ? 6.5% OR GREATER Jamar Pelaez MD CHEMISTRY ORDERABLES Performing Organization Address [facility]/ZIP Co de Phone Number [facility] CLIA# [id number] [address] [place] [address] * (ABNORMAL) POC GLUCOSE (02/16/2020 3:18 PM CDT) GLUCOSE POC 126(H) 74 - 99 mg/dL 02/16/2020 3:18 PM CDT [facility] CAREER CENTER ADVISOR NAME POC DANIELLEDARVINJANIE 02/16/2020 3:18 PM CDT [facility] Blood, whole 02/16/2020 3:18 PM CDT 02/16/2020 3:32 PM CDT Jamar Pelaez MD POINT OF CARE TESTIN Maggie Performing Organization Address [facility]/ZIP Co de Phone Number [facility]# [id number] [address] [place] [address] * (ABNORMAL) POC GLUCOSE (02/16/2020 1:59 PM CDT) GLUCOSE POC 113(H) 74 - 99 mg/dL 02/16/2020 1:59 PM CDT [facility] CAREER CENTER ADVISOR NAME POC JANIE ELIZABETH 02/16/2020 1:59 PM CDT [facility] Blood, whole 02/16/2020 1:59 PM CDT 02/16/2020 2:08 PM CDT Jamar Pelaez MD POINT OF CARE TESTIN G Performing Organization Address [facility]/ZIP Co de Phone Number [facility]# [id number] [address] [place] [address] * (ABNORMAL) BASIC METABOLIC PANEL (02/16/2020 1:40 PM CDT) SODIUM 138 136 - 145 mmol/L 02/16/2020 4:13 PM CDT [facility] POTASSIUM 3.4(L) 3.5 - 5.0 mmol/L 02/16/2020 4:13 PM CDT [facility] CHLORIDE 106 98 - 107 mmol/L 02/16/2020 4:13 PM CDT [facility] CO2 17(L) 22 - 29 mmol/L 02/16/2020 4:13 PM CDT [facility] CALCIUM 7.5(L) 8.6 - 10.2 mg/dL 02/16/2020 4:13 PM CDT [facility] BUN 3(L) 6 - 20 mg/dL 02/16/2020 4:13 PM CDT [facility] CREATININE 0.41(L) 0.51 - 0.95 mg/dL 02/16/2020 4:13 PM CDT [facility] GLUCOSE 124(H) 74 - 99 mg/dL 02/16/2020 4:13 PM CDT [facility] GFR >60 >=60 mL/min/1.7 3 sq meter 02/16/2020 4:13 PM CDT [facility] Comment: eGFR has not [...] GFR, >60 >=60 mL/min/1.7 3 sq meter 02/16/2020 4:13 PM CDT [facility] ANION GAP 15 8 - 16 mmol/L 02/16/2020 4:13 PM CDT [facility] Blood Venipuncture / Unknown 02/16/2020 1:40 PM CDT 02/16/2020 1:48 PM CDT Jamar Pelaez MD CHEMISTRY ORDERABLES [facility]# [id number] [address] [facility] [address] [address] * (ABNORMAL) POC GLUCOSE (02/16/2020 12:59 PM CDT) GLUCOSE POC 137(H) 74 - 99 mg/dL 02/16/2020 12:59 PM CDT [facility] CAREER CENTER ADVISOR NAME POC JANIE ELIZABETH 02/16/2020 12:59 PM CDT [facility] SERVICES [facility] Blood, whole 02/16/2020 12:5 9 PM CDT 02/16/2020 1:07 PM CDT Jamar Pelaez MD POINT OF CARE TESTIN Maggie [facility] CLIA# [id number] [address] [place] [address] * (ABNORMAL) POC GLUCOSE (02/16/2020 12:16 PM CDT) GLUCOSE POC 116(H) 74 - 99 mg/dL 02/16/2020 12:16 PM CDT [facility] CAREER CENTER ADVISOR NAME POC JANIE ELIZABETH 02/16/2020 12:16 PM CDT [facility] Blood, whole 02/16/2020 12:1 6 PM CDT 02/16/2020 12:23 PM CDT Jamar Pelaez MD POINT OF CARE TESTIN Maggie Performing Organization Address [facility]/ZIP Co de Phone Number [facility] CLIA# [id number] [address] [place] [address] * (ABNORMAL) POC GLUCOSE (02/16/2020 11:42 AM CDT) GLUCOSE POC 101(H) 74 - 99 mg/dL 02/16/2020 11:42 AM CDT [facility] COMMENT, GLU POC Notified RN/MD 02/16/2020 11:42 AM CDT [facility] CAREER CENTER ADVISOR NAME POC ELIGIO MARTIN 02/16/2020 11:42 AM CDT [facility] Blood, whole 02/16/2020 11:4 2 AM CDT 02/16/2020 12:01 PM CDT Jamar Pelaez MD POINT OF CARE TESTIN G [facility]# [id number] [address] [place] [address] * POC GLUCOSE (02/16/2020 11:06 AM CDT) GLUCOSE POC 95 74 - 99 mg/dL 02/16/2020 11:06 AM CDT [facility] SERVICES [facility] CAREER CENTER ADVISOR NAME POC JANIE ELIZABETH 02/16/2020 11:06 AM CDT [facility] SERVICES [facility] Blood, whole 02/16/2020 11:0 6 AM CDT 02/16/2020 11:22 AM CDT Jamar Pelaez MD POINT OF CARE TESTIN G Performing Organization Address [facility]/ZIP Co de Phone Number [facility] CLIA# [id number] [address] [place] [address] * (ABNORMAL) POC GLUCOSE (02/16/2020 10:18 AM CDT) GLUCOSE POC 122(H) 74 - 99 mg/dL 02/16/2020 10:18 AM CDT [facility] SERVICES [facility] COMMENT, GLU POC Notified RN/MD 02/16/2020 10:18 AM CDT [facility] SERVICES [facility] CAREER CENTER ADVISOR NAME POC ELIGIO MARTIN 02/16/2020 10:18 AM CDT [facility] SERVICES [facility] Blood, whole 02/16/2020 10:1 8 AM CDT 02/16/2020 10:25 AM CDT Jamar Pelaez MD POINT OF CARE TESTJERONIMO G Performing Organization Address City/[facility]/ZIP Co de Phone Number [facility]# [id number] [address] [place] [address] * (ABNORMAL) T4 FREE (02/16/2020 9:20 AM CDT) T4 FREE 0.32(L) 0.90 - 1.70 ng/dL 02/16/2020 11:28 AM CDT [facility] Comment:Cleared of chylomicr ons. Blood Venipuncture / Unknown 02/16/2020 9:20 AM CDT 02/16/2020 9:26 AM CDT Jamra Pelaez MD CHEMISTRY ORDERABLES Performing Organization Address [facility] Co de Phone Number [facility] CLIA# [id number] [address] [facility] [place] [address] * (ABNORMAL) TSH REFLEXIVE (02/16/2020 9:20 AM CDT) TSH 20.50(H) 0.27 - 4.20 uIU/mL 02/16/2020 11:28 AM CDT [facility] Comment:Cleared of chylomicr ons. Blood Venipuncture / Unknown 02/16/2020 9:20 AM CDT 02/16/2020 9:26 AM CDT Jamar Pelaez MD CHEMISTRY ORDERABLES Performing Organization Address [facility] Phone Number [facility] CLIA# [id number] [address] [place] [address] * (ABNORMAL) COMPREHENSIVE METABOLIC PANEL (02/16/2020 9:20 AM CDT) SODIUM 134(L) 136 - 145 mmol/L 02/16/2020 11:27 AM CDT [facility] Comment:Cleared of chylomicr ons. POTASSIUM 3.6 3.5 - 5.0 mmol/L 02/16/2020 11:27 AM CDT [facility] Comment:Cleared of chylomicr ons. CHLORIDE 99 98 - 107 mmol/L 02/16/2020 11:27 AM CDT [facility] Comment:Cleared of chylomicr ons. CO2 22 22 - 29 mmol/L 02/16/2020 11:27 AM CDT [facility] Comment:Cleared of chylomicr ons. CALCIUM 8.1(L) 8.6 - 10.2 mg/dL 02/16/2020 11:27 AM [facility] Comment:Cleared of chylomicr ons. BUN 4(L) 6 - 20 mg/dL 02/16/2020 11:27 AM [facility] Comment:Cleared of chylomicr ons. CREATININE 0.39(L) 0.51 - 0.95 mg/dL 02/16/2020 11:27 AM [facility] Comment:Cleared of chylomicr ons. GLUCOSE 121(H) 74 - 99 mg/dL 02/16/2020 11:27 AM [facility] Comment:Cleared of chylomicr ons. TOTAL PROTEIN 6.3(L) 6.7 - 8.6 g/dL 02/16/2020 11:27 AM [facility] Comment:Cleared of chylomicr ons. ALBUMIN 3.6 3.5 - 5.2 g/dL 02/16/2020 11:27 AM [facility] Comment:Cleared of chylomicr ons. BILIRUBIN TOTAL <0.2(L) 0.3 - 1.2 mg/dL 02/16/2020 11:27 AM [facility] Comment:Cleared of chylomicr ons. ALKALINE PHOSPHATASE 81 35 - 104 U/L 02/16/2020 11:27 AM [facility] Comment:Cleared of chylomicr ons. AST 02/16/2020 11:27 AM [facility] Comment: Unable to result due to lipemia. Unable to evaluate due to lipemia. ALT 02/16/2020 11:27 AM [facility] Comment: Unable to result due to lipemia. Unable to evaluate due to lipemia. GFR >60 >=60 mL/min/1.7 3 sq meter 02/16/2020 11:27 AM [facility] Comment: eGFR has not been [...] GFR, >60 >=60 mL/min/1.7 3 sq meter 02/16/2020 11:27 AM CDT [facility] ANION GAP 13 8 - 16 mmol/L 02/16/2020 11:27 AM CDT [facility] Blood Venipuncture / Unknown 02/16/2020 9:20 AM CDT 02/16/2020 9:26 AM CDT [facility] - 02/16/2020 11:27 AM CDT Samples containing indocyanine green cause interferences on Total and/or Direct Bilirubin and must not be measured. Loki Vences MD CHEMISTRY ORDERABLES [facility]# [id number] [address] [place] [address] * (ABNORMAL) TRIGLYCERIDE (02/16/2020 9:20 AM CDT) TRIGLYCERIDE >4,425(H) <150 mg/dL 02/16/2020 10:49 AM CDT [facility] Blood Venipuncture / Unknown 02/16/2020 9:20 AM CDT 02/16/2020 9:26 AM CDT [facility] - 02/16/2020 10:49 AM CDT TRIGLYCERIDES ? mg/dL Normal ?< 150 Borderline High ?150 - 199 High ? 200 - 499 Very High ? >= 500 Based on AHA/NCEP Guidelines. Loki Vences MD CHEMISTRY ORDERABLES Performing Organization Address [facility]/ZIP Co de Phone Number [facility]# [id number] [address] [place] [address] * (ABNORMAL) POC GLUCOSE (02/16/2020 9:11 AM CDT) GLUCOSE POC 124(H) 74 - 99 mg/dL 02/16/2020 9:11 AM CDT [facility] SERVICES [facility] CAREER CENTER ADVISOR NAME JANIE WETZEL 02/16/2020 9:11 AM CDT [facility] SERVICES [facility] Blood, whole 02/16/2020 9:11 AM CDT 02/16/2020 9:27 AM CDT Jamar Pelaez MD POINT OF CARE TESTJERONIMO Serrano Performing Organization Address [facility] Co pa Phone Number [facility]# [id number] [address] [place] [address] * (ABNORMAL) POC GLUCOSE (02/16/2020 7:51 AM CDT) GLUCOSE POC 131(H) 74 - 99 mg/dL 02/16/2020 7:51 AM CDT [facility]ORATORY SERVICES [facility] COMMENT, GLU POC Notified RN/MD 02/16/2020 7:51 AM CDT [facility] SERVICES [facility] CAREER CENTER ADVISOR NAME JANIE WETZEL 02/16/2020 7:51 AM CDT [facility] SERVICES [facility] Blood, whole 02/16/2020 7:51 AM CDT 02/16/2020 8:02 AM CDT Jamar Pelaez MD POINT OF CARE TESTIN Maggie Performing Organization Address [facility] Co de Phone Number [facility]# [id number] [address] [place] [address] * (ABNORMAL) POC GLUCOSE (02/16/2020 7:18 AM CDT) GLUCOSE POC 139(H) 74 - 99 mg/dL 02/16/2020 7:18 AM CDT [facility] CAREER CENTER ADVISOR NAME BROWN DANIEL 02/16/2020 7:18 AM CDT [facility] SERVICES [facility] Blood, whole 02/16/2020 7:18 AM CDT 02/16/2020 7:25 AM CDT Matteo Lyn MD POINT OF CARE SILVIANO ORTEGA Performing Organization Address [facility]/ZIP Co de Phone Number [facility] CLIA# [id number] [address] [place] [address] * (ABNORMAL) POC GLUCOSE (02/16/2020 6:51 AM CDT) GLUCOSE POC 131(H) 74 - 99 mg/dL 02/16/2020 6:51 AM CDT [facility] CAREER CENTER ADVISOR NAME BROWN DANIEL 02/16/2020 6:51 AM CDT [facility] SERVICES [facility] Blood, whole 02/16/2020 6:51 AM CDT 02/16/2020 7:00 AM CDT Matteo Lyn MD POINT OF CARE SILVIANO ORTEGA Performing Organization Address City/[facility]/ZIP Co de Phone Number [facility] CLIA# [id number] [address] [place] [address] * POC GLUCOSE (02/16/2020 6:19 AM CDT) GLUCOSE POC 77 74 - 99 mg/dL 02/16/2020 6:19 AM CDT [facility] CAREER CENTER ADVISOR NAME BROWN DANIEL 02/16/2020 6:19 AM CDT [facility] SERVICES [facility] Blood, whole 02/16/2020 6:19 AM CDT 02/16/2020 6:49 AM CDT Matteo Lyn MD POINT OF CARE SILVIANO IRLANDA [facility] CLIA# [id number] [address] [place] [address] * (ABNORMAL) MANUAL DIFFERENTIAL (02/16/2020 5:21 AM CDT) SEGMENTED NEUTROPHILS 78 % 02/16/2020 7:11 AM CDT [facility] BANDS RELATIVE 1 0 - 5 % 02/16/2020 7:11 AM CDT [facility] LYMPHOCYTES RELATIVE 12 % 02/16/2020 7:11 AM CDT [facility] ATYPICAL LYMPHOCYTES RELATIVE 3 0 - 5 % 02/16/2020 7:11 AM CDT [facility] MONOCYTES RELATIVE 6 % 02/16/2020 7:11 AM CDT [facility] - [facility] NEUTROPHILS ABSOLUTE COUNT 13.84(H) 1.90 - 7.00 K/uL 02/16/2020 7:11 AM CDT [facility] LYMPHOCYTES ABSOLUTE 2.07 0.70 - 4.50 K/uL 02/16/2020 7:11 AM CDT [facility] MONOCYTES ABSOLUTE 1.11 0.10 - 1.30 K/uL 02/16/2020 7:11 AM CDT [facility] TOTAL CELLS COUNTED IN DIFF 110 02/16/2020 7:11 AM CDT [facility] RBC MORPHOLOGY abnormal 02/16/2020 7:11 AM CDT [facility] SERVICES - . [facility] PLATELET EST. Consistent w Count 02/16/2020 7:11 AM CDT [facility] SERVICES - . [facility] ANISOCYTOSIS 1+ /hpf 02/16/2020 7:11 AM CDT [facility] Blood Venipuncture / Unknown 02/16/2020 5:21 AM CDT 02/16/2020 5:30 AM CDT Loki Vences MD HEMATOLOGY ORDERABLE S COM Performing Organization Address City/[facility]/ZIP Co de Phone Number [facility] CLIA# [id number] [address] [place] [address] * (ABNORMAL) POC GLUCOSE (02/16/2020 5:21 AM CDT) GLUCOSE POC 152(H) 74 - 99 mg/dL 02/16/2020 5:21 AM CDT [facility] CAREER CENTER ADVISOR NAME POC BROWN REED 02/16/2020 5:21 AM CDT [facility] Blood, whole 02/16/2020 5:21 AM CDT 02/16/2020 5:28 AM CDT Matteo Lyn MD POINT OF CARE [facility] Performing Organization Address [facility]/ZIP Co de Phone Number [facility] CLIA# [id number] [address] [place] [address] * (ABNORMAL) CBC WITH DIFFERENTIAL (02/16/2020 5:21 AM CDT) WBC 17.5(H) 4.0 - 9.8 K/uL 02/16/2020 6:37 AM [facility] RBC 4.21 3.90 - 4.90 M/uL 02/16/2020 6:37 AM T [facility] HEMOGLOBIN 11.7(L) 11.8 - 14.8 g/dL 02/16/2020 6:37 AM T [facility] Comment:Results corrected fo r elevated lipids. HEMATOCRIT 37.8 35.5 - 44.0 % 02/16/2020 6:37 AM T [facility] MCV 89.8 82.0 - 99.0 fL 02/16/2020 6:37 AM [facility] MCH 36.4(H) 27.2 - 32.6 pg 02/16/2020 6:37 AM T [facility] Comment:Results corrected fo r elevated lipids. MCHC 31.0(L) 31.5 - 35.5 g/dL 02/16/2020 6:37 AM CDT [facility] Comment:Results corrected fo r elevated lipids. RDW 14.4 11.5 - 14.5 % 02/16/2020 6:37 AM CDT [facility] RDW-STDEV 46.4 37.1 - 48.7 fL 02/16/2020 6:37 AM CDT [facility] PLATELETS 353(H) 140 - 350 K/uL 02/16/2020 6:37 AM CDT [facility] MPV 9.0(L) 9.3 - 12.4 fL 02/16/2020 6:37 AM CDT [facility] Blood Venipuncture / Unknown 02/16/2020 5:21 AM CDT 02/16/2020 5:30 AM CDT Loki Vences MD HEMATOLOGY ORDERABLE S [facility] CLIA# [id number] [address] [place] [address] * (ABNORMAL) POC GLUCOSE (02/16/2020 4:17 AM CDT) [facility] GLUCOSE POC 102(H) 74 - 99 mg/dL 02/16/2020 4:17 AM CDT [facility] CAREER CENTER ADVISOR NAME POC BROWN REED 02/16/2020 4:17 AM CDT [facility] Blood, whole 02/16/2020 4:17 AM CDT 02/16/2020 4:24 AM CDT Matteo Lyn MD POINT OF CARE SILVIANO ORTEGA [facility] CLIA# [id number] [address] [place] [address] * (ABNORMAL) POC GLUCOSE (02/16/2020 3:44 AM CDT) GLUCOSE POC 106(H) 74 - 99 mg/dL 02/16/2020 3:44 AM CDT [facility] CAREER CENTER ADVISOR NAME BROWN DANIEL 02/16/2020 3:44 AM CDT [facility] LABORATORY SERVICES [facility] Blood, whole 02/16/2020 3:44 AM CDT 02/16/2020 3:50 AM CDT Matteo Lyn MD POINT OF CARE S[place]VIANO ORTEGA Performing Organization Address [facility]/State/ZIP Co de Phone Number [facility] CLIA# [id number] [address] [place] [address] * (ABNORMAL) POC GLUCOSE (02/16/2020 3:06 AM CDT) GLUCOSE POC 107(H) 74 - 99 mg/dL 02/16/2020 3:06 AM CDT [facility] LABORATORY SERVICES [facility] CAREER CENTER ADVISOR NAME BROWN DANIEL 02/16/2020 3:06 AM CDT [facility] SERVICES [facility] Blood, whole 02/16/2020 3:06 AM CDT 02/16/2020 3:14 AM CDT Matteo Lyn MD POINT OF CARE SILVIANO ORTEGA [facility] CLPA# [id number] [address] [place] [address] * POC GLUCOSE (02/16/2020 2:30 AM CDT) GLUCOSE POC 93 74 - 99 mg/dL 02/16/2020 2:30 AM CDT [facility] CAREER CENTER ADVISOR NAME BROWN DANIEL 02/16/2020 2:30 AM CDT [facility] Blood, whole 02/16/2020 2:30 AM CDT 02/16/2020 2:39 AM CDT Matteo Lyn MD POINT OF CARE SILVIANO ORTEGA Performing Organization Address [facility] de Phone Number [facility] [employer] [facility]# [id number] [address] [place] [address] * (ABNORMAL) POC GLUCOSE (02/16/2020 1:05 AM CDT) GLUCOSE POC 150(H) 74 - 99 mg/dL 02/16/2020 1:05 AM CDT [facility] LABORATORY [facility] CAREER CENTER ADVISOR NAME POC JOSE GUADALUPE CONLEY 02/16/2020 1:05 AM CDT [facility] [employer] [facility] Blood, whole 02/16/2020 1:05 AM CDT 02/16/2020 1:19 AM CDT Matteo Lyn MD POINT OF CARE SILVIANO ORTEGA Performing Organization Address [facility] de Phone Number [facility] [employer] [facility]# [id number] [address] [place] [address] * (ABNORMAL) BASIC METABOLIC PANEL (02/16/2020 12:45 AM CDT) SODIUM 134(L) 136 - 145 mmol/L 02/16/2020 2:06 AM CDT [facility] [employer] [facility] POTASSIUM 02/16/2020 2:06 AM CDT [facility] Comment:Test cannot be perfo rmed due to gross hemolysis present. Redraw if indicated. CHLORIDE 102 98 - 107 mmol/L 02/16/2020 2:06 AM CDT [facility] CO2 20(L) 22 - 29 mmol/L 02/16/2020 2:06 AM T [facility] LABORATORY [facility] CALCIUM 7.1(L) 8.6 - 10.2 mg/dL 02/16/2020 2:06 AM CDT [facility] LABORATORY [facility] Comment:Significant change f rom prior result, correlate clinically and redraw if necessary. BUN 4(L) 6 - 20 mg/dL 02/16/2020 2:06 AM [facility] CREATININE 0.34(L) 0.51 - 0.95 mg/dL 02/16/2020 2:06 AM [facility] GLUCOSE 171(H) 74 - 99 mg/dL 02/16/2020 2:06 AM [facility] GFR >60 >=60 mL/min/1.7 3 sq meter 02/16/2020 2:06 AM [facility] Comment: eGFR has not been [...] GFR, >60 >=60 mL/min/1.7 3 sq meter 02/16/2020 2:06 AM [facility] ANION GAP 12 8 - 16 mmol/L 02/16/2020 2:06 AM [facility] Blood Venipuncture / Unknown 02/16/2020 12:45 AM CDT 02/16/2020 12:58 AM CDT Narrative [facility] - 02/16/2020 2:06 AM CDT Specimen ultracentrifuged to clear it of chylomicrons. Loki Vences MD CHEMISTRY ORDERABLES [facility]# [id number] 1 SK[address] [facility] [place] [place] [address] * LACTIC ACID (02/16/2020 12:45 AM CDT) LACTIC ACID 1.9 <=2.0 mmol/L 02/16/2020 1:53 AM CDT [facility] Comment:Cleared of chylomicr ons. Blood Venipuncture / Unknown 02/16/2020 12:45 AM CDT 02/16/2020 12:58 AM CDT Loki Vences MD CHEMISTRY ORDERABLES Performing Organization Address [facility] Co de Phone Number [facility] CLIA# [id number] [address] [place] [address] * (ABNORMAL) POC GLUCOSE (02/15/2020 11:25 PM CDT) GLUCOSE POC 192(H) 74 - 99 mg/dL 02/15/2020 11:25 PM CDT [facility] ADVISOR NAME POC JOSE GUADALUPE CONLEY 02/15/2020 11:25 PM CDT [facility] Blood, whole 02/15/2020 11:2 5 PM CDT 02/15/2020 11:31 PM CDT Matteo Lyn MD POINT OF CARE SILVIANO TING Performing Organization Address [facility] Co de Phone Number [facility] CLIA# [id number] [address] [place] [address] * CT ABDOMEN PELVIS W CONTRAST (02/15/2020 9:27 PM CDT) Anatomical Region Laterality Modality Abdomen Computed Tomogra phy 02/15/2020 9:28 PM CDT Impressions 02/15/2020 9:36 PM CDT IMPRESSION: 1. Acute pancreatitis. Nonspecific 9 mm hypodense lesion in the distal aspect of the pancreas. 2. Right adnexal cyst measuring up to 4.9 cm, unchanged from the prior CT. INCIDENTAL FINDINGS: ??None. The examination was performed with the adjustment of mA according to the patient size and/or the use of Iterative 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 DICTATION LOCATION: Location 1 - [facility] Narrative 02/15/2020 9:36 PM CDT Exam: CT abdomen and pelvis with contrast Exam date: 02/15/2020 INDICATION: Pancreatitis. COMPARISON: 04/12/2019 CT FINDINGS: No aggressive osseous lesion. Cardiac silhouette within normal limits. Lung base atelectasis. Unremarkable liver, gallbladder and spleen. Peripancreatic fat stranding. There is a 9 mm hypodense lesion in the distal aspect of the pancreas, new from the prior CT. Unremarkable adrenal glands. The kidneys are within normal limits. Atherosclerotic plaque within the aorta and branch vessels. No bowel obstruction. The appendix is not identified. Unremarkable urinary bladder. Bilateral ovarian follicular changes. Prominent right adnexal cyst measuring up to 4.9 cm x 4.2 cm, unchanged from the prior CT. Procedure Note Jess Foster MD - 02/15/2020 Exam: CT abdomen and pelvis with contrast Exam date: 02/15/2020 INDICATION: Pancreatitis. COMPARISON: 04/12/2019 CT FINDINGS: No aggressive osseous lesion. Cardiac silhouette within normal limits. Lung base atelectasis. Unremarkable liver, gallbladder and spleen. Peripancreatic fat stranding. There is a 9 mm hypodense lesion in the distal aspect of the pancreas, new from the prior CT. Unremarkable adrenal glands. The kidneys are within normal limits. Atherosclerotic plaque within the aorta and branch vessels. No bowel obstruction. The appendix is not identified. Unremarkable urinary bladder. Bilateral ovarian follicular changes. Prominent right adnexal cyst measuring up to 4.9 cm x 4.2 cm, unchanged from the prior CT. IMPRESSION: 1. Acute pancreatitis. Nonspecific 9 mm hypodense lesion in the distal aspect of the pancreas. 2. Right adnexal cyst measuring up to 4.9 cm, unchanged from the prior CT. INCIDENTAL FINDINGS: None. The examination was performed with the adjustment of mA according to the patient size and/or the use of Iterative 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 DICTATION LOCATION: Location 1 - [facility] Matteo Lyn MD CT ORDERABLES * (ABNORMAL) URINALYSIS WITH REFLEX MICROSCOPIC (02/15/2020 8:09 PM CDT) COLOR UA Yellow Pale to Dark Yellow 02/15/2020 8:32 PM CDT [facility] CLARITY UA Slightly Cloudy(A) Clear 02/15/2020 8:32 PM CDT [facility] SPECIFIC GRAVITY UA 1.018 1.003 - 1.035 02/15/2020 8:32 PM CDT [facility] PH UA 6.0 5.0 - 8.0 02/15/2020 8:32 PM CDT [facility] LEUKOCYTE ESTERASE UA Negative Negative 02/15/2020 8:32 PM CDT [facility] NITRITE UA Negative Negative 02/15/2020 8:32 PM CDT [facility] PROTEIN UA 2+(A) Negative 02/15/2020 8:32 PM CDT [facility] GLUCOSE UA 2+(A) Negative 02/15/2020 8:32 PM CDT [facility] KETONES UA Trace(A) Negative 02/15/2020 8:32 PM CDT [facility] UROBILINOGEN UA Normal <2.0 mg/dL 0 8:32 PM CDT [facility] BILIRUBIN UA Negative Negative 02/15/2020 8:32 PM CDT [facility] BLOOD UA 1+(A) Negative 02/15/2020 8:32 PM CDT [facility] WBC UA 0-2 0 - 2 /hpf 02/15/2020 8:32 PM CDT [facility] RBC UA 6-10(A) 0 - 2 /hpf 02/15/2020 8:32 PM CDT [facility] BACTERIA UA 1+(A) Negative /hpf 02/15/2020 8:32 PM CDT [facility] EPITHELIAL CELLS, URINE 11-25(A) 0 - 5 /hpf 02/15/2020 8:32 PM CDT [facility] Urine URINE SPECIMEN OBTAINED BY CLEAN CATCH PROCEDURE / Unknown Collection / Unknown 02/15/2020 8:09 PM CDT 02/15/2020 8:15 PM CDT aMtteo Lyn MD URINE ORDERABLES [facility] SERVICES [facility]# [id number] [address] [place] [address] * (ABNORMAL) TRIGLYCERIDE (02/15/2020 6:21 PM CDT) [facility] TRIGLYCERIDE >4,425(H) <150 mg/dL 02/15/2020 9:26 PM CDT [facility]ORATORY [facility] Blood Venipuncture / Unknown 02/15/2020 6:21 PM CDT 02/15/2020 6:37 PM CDT [facility] LABORATORY [facility] - 02/15/2020 9:26 PM CDT TRIGLYCERIDES ? mg/dL Normal ?< 150 Borderline High ?150 - 199 High ? 200 - 499 Very High ? >= 500 Based on AHA/NCEP Guidelines. Matteo Lyn MD CHEMISTRY ORDERAB LES [facility]# [id number] [address] [place] [address] * (ABNORMAL) MANUAL DIFFERENTIAL (02/15/2020 6:21 PM CDT) [facility] SEGMENTED NEUTROPHILS 82 % 02/15/2020 7:18 PM CDT [facility] LABORATORY SERVICES [facility] LYMPHOCYTES RELATIVE 13 % 02/15/2020 7:18 PM CDT [facility] LABORATORY [facility] MONOCYTES RELATIVE 3 % 02/15/2020 7:18 PM CDT [facility] LABORATORY [facility] EOSINOPHILS RELATIVE 1 % 02/15/2020 7:18 PM CDT [facility] LABORATORY [facility] BASOPHILS RELATIVE 2 % 02/15/2020 7:18 PM CDT [facility] LABORATORY [facility] NEUTROPHILS ABSOLUTE COUNT 13.50(H) 1.90 - 7.00 K/uL 02/15/2020 7:18 PM CDT [facility] LABORATORY [facility] LYMPHOCYTES ABSOLUTE 2.10 0.70 - 4.50 K/uL 02/15/2020 7:18 PM CDT [facility] LABORATORY SERVICES - [facility] MONOCYTES ABSOLUTE 0.45 0.10 - 1.30 K/uL 02/15/2020 7:18 PM CDT [facility] LABORATORY SERVICES - [facility] EOSINOPHILS ABSOLUTE 0.15 0.00 - 0.70 K/uL 02/15/2020 7:18 PM CDT [facility] LABORATORY SERVICES - [facility] BASOPHILS ABSOLUTE 0.30(H) 0.00 - 0.20 K/uL 02/15/2020 7:18 PM CDT [facility] LABORATORY SERVICES - . [facility] TOTAL CELLS COUNTED IN DIFF 110 02/15/2020 7:18 PM CDT [facility] LABORATORY [facility] RBC MORPHOLOGY abnormal 02/15/2020 7:18 PM CDT [facility] LABORATORY SERVICES - . [facility] PLATELET EST. Consistent w Count 02/15/2020 7:18 PM CDT [facility] LABORATORY [facility] ANISOCYTOSIS 1+ /hpf 02/15/2020 7:18 PM CDT [facility] LABORATORY [facility] POIKILOCYTES 1+ /hpf 02/15/2020 7:18 PM CDT [facility] LABORATORY SERVICES - [facility] Blood Venipuncture / Unknown 02/15/2020 6:21 PM CDT 02/15/2020 6:36 PM CDT Matteo Lyn MD HEMATOLOGY ORDERA BLES COM [facility] CLIA# [id number] [address] [place] [address] * (ABNORMAL) LIPASE (02/15/2020 6:21 PM CDT) LIPASE 68(H) 13 - 60 U/L 02/15/2020 8:15 PM CDT [facility] LABORATORY SERVICES [facility] Comment:Cleared of chylomicr ons. Blood Venipuncture / Unknown 02/15/2020 6:21 PM CDT 02/15/2020 6:37 PM CDT Matteo Lyn MD CHEMISTRY ORDERAB LES [facility] LABORATORY SERVICES [facility] CLIA# [id number] [address] [place] [address] * (ABNORMAL) COMPREHENSIVE METABOLIC PANEL (02/15/2020 6:21 PM CDT) SODIUM 132(L) 136 - 145 mmol/L 02/15/2020 8:18 PM CDT [facility] LABORATORY SERVICES [facility] POTASSIUM 4.5 3.5 - 5.0 mmol/L 02/15/2020 8:18 PM CDT [facility] Comment:Moderate hemolysis p resent. Can cause significant falsely elevated result. Redraw if indicated. CHLORIDE 92(L) 98 - 107 mmol/L 02/15/2020 8:18 PM CDT [facility] LABORATORY SERVICES [facility] CO2 22 22 - 29 mmol/L 02/15/2020 8:18 PM CDT [facility] LABORATORY SERVICES [facility] CALCIUM 9.2 8.6 - 10.2 mg/dL 02/15/2020 8:18 PM CDT [facility] LABORATORY SERVICES [facility] BUN 5(L) 6 - 20 mg/dL 02/15/2020 8:18 PM CDT [facility] LABORATORY SERVICES [facility] CREATININE 0.41(L) 0.51 - 0.95 mg/dL 02/15/2020 8:18 PM CDT [facility] LABORATORY [facility] GLUCOSE 220(H) 74 - 99 mg/dL 02/15/2020 8:18 PM CDT [facility] LABORATORY SERVICES [facility] TOTAL PROTEIN 7.6 6.7 - 8.6 g/dL 02/15/2020 8:18 PM CDT [facility] LABORATORY SERVICES [facility] ALBUMIN 4.2 3.5 - 5.2 g/dL 02/15/2020 8:18 PM CDT [facility] LABORATORY SERVICES [facility] BILIRUBIN TOTAL 0.3 0.3 - 1.2 mg/dL 02/15/2020 8:18 PM CDT [facility] LABORATORY [facility] ALKALINE PHOSPHATASE 95 35 - 104 U/L 02/15/2020 8:18 PM CDT [facility] AST 02/15/2020 8:18 PM CDT [facility] Comment: Hemolysis present. ??Result may be falsely elevated. Cleared of chylomicrons. Unable to evaluate due to lipemia. ALT 02/15/2020 8:18 PM CDT [facility] Comment: Hemolysis present. ??Result may be falsely elevated. Cleared of chylomicrons. Unable to evaluate due to lipemia. GFR >60 >=60 mL/min/1.7 3 sq meter 02/15/2020 8:18 PM CDT [facility] Comment: eGFR has not been validated for [...] GFR, >60 >=60 mL/min/1.7 3 sq meter 02/15/2020 8:18 PM CDT [facility] ANION GAP 18(H) 8 - 16 mmol/L 02/15/2020 8:18 PM CDT [facility] Blood Venipuncture / Unknown 02/15/2020 6:21 PM CDT 02/15/2020 6:37 PM CDT Narrative [facility] LABORATORY [facility] - 02/15/2020 8:18 PM CDT Specimen ultracentrifuged to be cleared of chylomicrons. Unable to result AST/ALT due to high lipemia. Samples containing indocyanine green cause interferences on Total and/or Direct Bilirubin and must not be measured. Matteo Lyn MD CHEMISTRY ORDERAB LES [facility] CLIA# [id number] 5 [address] [facility] [address] [place] [address] * (ABNORMAL) CBC WITH DIFFERENTIAL (02/15/2020 6:21 PM CDT) WBC 16.1(H) 4.0 - 9.8 K/uL 02/15/2020 7:58 PM CDT [facility] RBC 4.12 3.90 - 4.90 M/uL 02/15/2020 7:58 PM CDT [facility] Comment:Results corrected fo r elevated lipids. HEMOGLOBIN 12.5 11.8 - 14.8 g/dL 02/15/2020 7:58 PM CDT [facility] Comment:Results corrected fo r elevated lipids. HEMATOCRIT 41.5 35.5 - 44.0 % 02/15/2020 7:58 PM CDT [facility] MCV 89.1 82.0 - 99.0 fL 02/15/2020 7:58 PM CDT [facility] MCH 26.8(L) 27.2 - 32.6 pg 02/15/2020 7:58 PM CDT [facility] Comment:Results corrected fo r elevated lipids. MCHC 30.1(L) 31.5 - 35.5 g/dL 02/15/2020 7:58 PM CDT [facility] Comment:Results corrected fo r elevated lipids. RDW 14.2 11.5 - 14.5 % 02/15/2020 7:58 PM CDT [facility] RDW-STDEV 45.3 37.1 - 48.7 fL 02/15/2020 7:58 PM CDT [facility] PLATELETS 320 140 - 350 K/uL 02/15/2020 7:58 PM CDT [facility] MPV 10.2 9.3 - 12.4 fL 02/15/2020 7:58 PM CDT [facility] NEUTROPHILS 79 % 02/15/2020 7:58 PM CDT [facility] LYMPHOCYTES 11 % 02/15/2020 7:58 PM CDT [facility] MONOCYTES 9 % 02/15/2020 7:58 PM CDT [facility] EOSINOPHILS 1 % 02/15/2020 7:58 PM CDT [facility] BASOPHILS 0 % 02/15/2020 7:58 PM CDT [facility] IMMATURE GRANULOCYTES 1 % 02/15/2020 7:58 PM CDT [facility] - [facility] Comment:IG (Immature Granulo cyte) count includes Metamyelocytes, Myelocytes, and Promyelocytes NEUTROPHIL ABSOLUTE 12.68(H) 1.90 - 7.00 K/uL 02/15/2020 7:58 PM CDT [facility] LABORATORY SERVICES - . [facility] LYMPHOCYTE ABSOLUTE 1.71 0.70 - 4.50 K/uL 02/15/2020 7:58 PM CDT [facility] LABORATORY [facility] MONOCYTE ABSOLUTE 1.43(H) 0.10 - 1.30 K/uL 02/15/2020 7:58 PM CDT [facility] LABORATORY SERVICES - . [facility] EOSINOPHIL ABSOLUTE 0.13 0.00 - 0.70 K/uL 02/15/2020 7:58 PM CDT [facility] LABORATORY SERVICES - . [facility] BASOPHILS ABSOLUTE 0.05 0.00 - 0.20 K/uL 02/15/2020 7:58 PM CDT [facility] LABORATORY [facility] IMMATURE GRANULOCYTES ABSOLUTE 0.11(H) 0.00 - 0.03 K/uL 02/15/2020 7:58 PM CDT [facility] LABORATORY SERVICES [facility] Blood Venipuncture / Unknown 02/15/2020 6:21 PM CDT 02/15/2020 6:36 PM CDT Matteo Lyn MD HEMATOLOGY ORDERA BLES [facility]# [id number] [address] [place] [address] [place] [address] documented in this encounter Visit Diagnoses Diagnosis Acute on chronic pancreatitis- Primary Acute on chronic pancreatitis History of plasmapheresis Chylomicronemia syndrome Hyperchylomicronemia Type 2 diabetes mellitus without complication, with long-term current use of insulin Hypertriglyceridemia Pure hyperglyceridemia Recurrent pancreatitis Chronic pancreatitis Hypertriglyceridemia Pure hyperglyceridemia Type 2 diabetes mellitus without complication, with long-term current use of insulin Acquired hypothyroidism Unspecified hypothyroidism Chylomicronemia syndrome Hyperchylomicronemia Depression with anxiety Dysthymic disorder Tobacco use Tobacco use disorder Uncontrolled type 2 diabetes mellitus with hyperglycemia Moderate protein-calorie malnutrition Malnutrition of moderate degree documented in this encounter Administered Medications Inactive Administered Medications - up to 3 most recent administrations Medication Order MAR Action Action Date Dose Rate Site acetaminophen (TYLENOL) 325 mg/10.15 mL oral solution 1,000.6158 mg 1,000.6158 mg (rounded from 1,000 mg), NG Tube, EVERY 8 HOURS, First dose on Sat02/26/20 at 1300, Until Discontinued, Routine Given 02/28/2020 12:17 PM TIG WELDER 1,000.6158 mg Given 02/28/2020 5:41 AM TIG WELDER 1,000.6158 mg Given 02/27/2020 8:42 PM CDT 1,000.6158 mg acetaminophen (TYLENOL) tablet 1,000 mg 1,000 mg, Oral, EVERY 8 HOURS, First dose on Sat02/16/20 at 0815, Until Discontinued, Routine Given 02/24/2020 1:21 PM CDT 1,000 mg Given 02/24/2020 5:45 AM CDT 1,000 mg Given 02/23/2020 8:08 PM CDT 1,000 mg acetaminophen (TYLENOL) tablet 1,000 mg 1,000 mg, Oral, EVERY 8 HOURS, First dose on Sat02/28/20 at 2100, Until Discontinued, Routine Given 02/29/2020 12:00 PM TIG WELDER 1,000 mg Given 02/29/2020 6:18 AM TIG WELDER 1,000 mg Given 02/28/2020 9:21 PM TIG WELDER 1,000 mg acetaminophen (TYLENOL) tablet 650 mg 650 mg, Oral, EVERY 4 HOURS PRN, Starting on Sat02/24/20 at 2101, Until Sat02/26/20 at 1020, Pain, Routine Given 02/24/2020 9:33 PM CDT 650 mg alteplase (CATHFLO ACTIVASE) 2 mg injection 2 mg 2 mg, Dwell, ONE TIME ONLY, 1 dose, On Sat02/16/20 at 1100, Stat Given 02/16/2020 11:18 AM CDT 2 mg Othe r (Comment) atorvastatin (LIPITOR) tablet 80 mg 80 mg, Oral, DAILY AT BEDTIME, First dose on Sat02/16/20 at 2100, Until Discontinued, Routine Given 02/23/2020 8:08 PM CDT 80 mg Given 02/22/2020 10:43 PM CDT 80 mg Given 02/21/2020 10:26 PM CDT 80 mg atorvastatin (LIPITOR) tablet 80 mg 80 mg, NG Tube, DAILY AT BEDTIME, First dose (after last modification) on Sat02/24/20 at 2100, Until Discontinued, Routine Given 02/24/2020 8:40 PM CDT 80 mg atorvastatin (LIPITOR) tablet 80 mg 80 mg, Oral, DAILY AT BEDTIME, First dose (after last modification) on Sat02/25/20 at 2100, Until Discontinued, Routine Given 02/25/2020 8:38 PM CDT 80 mg atorvastatin (LIPITOR) tablet 80 mg 80 mg, NG Tube, DAILY AT BEDTIME, First dose (after last modification) on Sat02/26/20 at 2100, Until Discontinued, Routine Given 02/27/2020 8:46 PM CDT 80 mg Given 02/26/2020 10:22 PM CDT 80 mg atorvastatin (LIPITOR) tablet 80 mg 80 mg, Oral, DAILY AT BEDTIME, First dose (after last modification) on Sat02/28/20 at 2100, Until Discontinued, Routine Given 02/28/2020 9:21 PM TIG WELDER 80 mg bisacodyL (DULCOLAX) rectal suppository 10 mg 10 mg, Rectal, DAILY PRN, Starting on Sat02/18/20 at 1715, Until Sat02/29/20 at 1602, Constipation calcium GLUCONATE 2,000 mg in sodium chloride 0.9% 120 mL IVPB 2,000 mg, IV, INTRA-PROCEDURE ONCE, 1 dose, Starting on Sat02/16/20 at 0844, Until Sat02/16/20 at 1125, Stat New 02/16/2020 10:25 AM CDT 2,000 mg 135 mL/ hr calcium GLUCONATE 2,000 mg in sodium chloride 0.9% 120 mL IVPB 2,000 mg, IV, INTRA-PROCEDURE ONCE, 1 dose, Starting on Sat02/17/20 at 0900, Until Sat02/17/20 at 1103, Routine New Bag 02/17/2020 10:03 AM CDT 2,000 mg 135 mL/hr calcium GLUCONATE 2,000 mg in sodium chloride 0.9% 120 mL IVPB 2,000 mg, IV, INTRA-PROCEDURE ONCE, 1 dose, Starting on Sat02/18/20 at 1000, Until Sat02/18/20 at 1114, Routine New Bag 02/18/2020 10:22 AM CDT 2,000 mg 135 mL/hr citalopram (CeleXA) tablet 40 mg 40 mg, Oral, DAILY AT BEDTIME, First dose on Sat02/16/20 at 2100, Until Discontinued, Routine Given 02/23/2020 8:08 PM CDT 40 mg Given 02/22/2020 10:43 PM CDT 40 mg Given 02/21/2020 10:26 PM CDT 40 mg citalopram (CeleXA) tablet 40 mg 40 mg, NG Tube, DAILY AT BEDTIME, First dose (after last modification) on Sat02/24/20 at 2100, Until Discontinued, Routine Given 02/24/2020 8:40 PM CDT 40 mg citalopram (CeleXA) tablet 40 mg 40 mg, Oral, DAILY AT BEDTIME, First dose (after last modification) on Sat02/25/20 at 2100, Until Discontinued, Routine Given 02/25/2020 8:38 PM CDT 40 mg citalopram (CeleXA) tablet 40 mg 40 mg, NG Tube, DAILY AT BEDTIME, First dose (after last modification) on Sat02/26/20 at 2100, Until Discontinued, Routine Given 02/27/2020 8:45 PM CDT 40 mg Given 02/26/2020 10:22 PM CDT 40 mg citalopram (CeleXA) tablet 40 mg 40 mg, Oral, DAILY AT BEDTIME, First dose (after last modification) on 02/28/20 at 2100, Until Discontinued, Routine Given 02/28/2020 9:21 PM TIG WELDER 40 mg dextrose 5 % in water 250 mL flush bag 25 mL 25 mL, IV, SEE ADMIN INSTRUCTIONS, Starting on Sat02/19/20 at 0746, Until Sat02/29/20 at 1602, Routine dextrose 5% - sodium chloride 0.9% infusion IV, at 40 mL/hr, SEE ADMIN INSTRUCTIONS, Starting on 02/20/20 at 1848, Until 02/29/20 at 1602, Routine dextrose 5% - sodium chloride 0.9% infusion IV, at 40 mL/hr, CONTINUOUS, Starting on 02/20/20 at 1900, Until 02/21/20 at 0659, Routine New Bag 02/20/2020 8:38 PM CDT 40 mL/hr dextrose 5% - sodium chloride 0.9% infusion IV, at 75 mL/hr, CONTINUOUS, Starting on Katie 02/25/20 at 1100, Until Sat02/26/20 at 0717, Routine Rate Change 02/25/2020 11:41 PM CDT 75 mL/hr Bag Switched 02/25/2020 10:05 PM CDT 100 mL/hr Rate Verify 02/25/2020 10:00 PM CDT 100 mL/hr dextrose 50% (D50) syringe 12.5 Gram 12.5 Gram, IV, SEE ADMIN INSTRUCTIONS, Starting on 02/20/20 at 1848, Until Sat02/29/20 at 1602, Routine dextrose 50% (D50) syringe 25 Gram 25 Gram, IV, SEE ADMIN INSTRUCTIONS, Starting on 02/20/20 at 1848, Until Sat02/29/20 at 1602, Routine dicyclomine (BENTYL) capsule 20 mg 20 mg, Oral, THREE TIMES DAILY BEFORE MEALS, First dose on Sat02/26/20 at 1630, Until Discontinued, Routine Given 02/29/2020 10:18 AM TIG WELDER 20 mg Given 02/29/2020 6:18 AM TIG WELDER 20 mg Given 02/28/2020 4:32 PM TIG WELDER 20 mg enoxaparin (LOVENOX) injection 40 mg 40 mg, subCUT, DAILY, First dose on Sat02/16/20 at 0900, Until Discontinued, Routine, Indication: Prophylaxis of VTE, Dose to be adjusted per facility protocol? Yes Given 02/29/2020 10:20 AM TIG WELDER 40 mg Abdomen, Right Lower Quadrant Given 02/28/2020 9:17 AM TIG WELDER 40 mg Ab dominal Tissue Given 02/27/2020 8:54 AM CDT 40 mg Ab domen, Right Lower Quadrant fenofibrate (LOFIBRA) tablet 160 mg 160 mg, Oral, DAILY, First dose on Sat02/16/20 at 1500, Until Discontinued, Routine Given 02/24/2020 9:3 4 AM CDT 160 mg Given 02/23/2020 9:42 AM CDT 160 mg Given 02/22/2020 8:46 AM CDT 160 mg fenofibrate (LOFIBRA) tablet 160 mg 160 mg, Oral, DAILY, First dose (after last modification) on Sat02/25/20 at 0900, Until Discontinued, Routine Given 02/26/2020 10:04 AM CDT 160 mg Given 02/25/2020 9:18 AM CDT 160 mg fenofibrate (LOFIBRA) tablet 160 mg 160 mg, NG Tube, DAILY, First dose (after last modification) on 02/27/20 at 0900, Until Discontinued, Routine Given 02/28/2020 9:18 AM TIG WELDER 160 mg Given 02/27/2020 8:51 AM CDT 160 mg fenofibrate (LOFIBRA) tablet 160 mg 160 mg, Oral, DAILY, First dose (after last modification) on 02/29/20 at 0900, Until Discontinued, Routine Given 02/29/2020 10:18 AM TIG WELDER 160 mg flu vaccine quadrivalent (6 mo+)(PF) (FLUARIX QUAD,FLULAVAL QUAD,FLUZONE QUAD) 60 mcg (15 mcg x 4)/0.5 mL syringe 60 mcg 60 mcg (1 Dose), IM, ONE TIME ONLY, 1 dose, On Sat02/19/20 at 1100, Routine Given 02/19/2020 12:01 PM CDT 60 mcg Arm, Right gabapentin (NEURONTIN) capsule 100 mg 100 mg, Oral, EVERY 8 HOURS, First dose on Sat02/23/20 at 2100, Until Discontinued, Routine Given 02/24/2020 1:20 PM CDT 100 mg Given 02/24/2020 5:45 AM CDT 100 mg Given 02/23/2020 8:08 PM CDT 100 mg gabapentin (NEURONTIN) capsule 100 mg 100 mg, NG Tube, EVERY 8 HOURS, First dose (after last modification) on Sat02/24/20 at 2100, Until Discontinued, Routine Given 02/24/2020 8:40 PM CDT 100 mg gabapentin (NEURONTIN) capsule 100 mg 100 mg, Oral, EVERY 8 HOURS, First dose (after last modification) on Sat02/25/20 at 0500, Until Discontinued, Routine Given 02/25/2020 6:22 AM CDT 100 mg gabapentin (NEURONTIN) capsule 200 mg 200 mg, Oral, EVERY 8 HOURS, First dose (after last modification) on Sat02/25/20 at 1300, Until Discontinued, Routine Given 02/26/2020 4:03 AM CDT 200 mg Given 02/25/2020 8:39 PM CDT 200 mg Given 02/25/2020 12:33 PM CDT 200 mg gabapentin (NEURONTIN) capsule 200 mg 200 mg, NG Tube, EVERY 8 HOURS, First dose (after last modification) on Sat02/26/20 at 1300, Until Discontinued, Routine Given 02/28/2020 12:17 PM TIG WELDER 200 mg Given 02/28/2020 5:40 AM TIG WELDER 200 mg Given 02/27/2020 8:46 PM CDT 200 mg gabapentin (NEURONTIN) capsule 200 mg 200 mg, Oral, EVERY 8 HOURS, First dose (after last modification) on Sat02/28/20 at 2100, Until Discontinued, Routine Given 02/29/2020 6:18 AM TIG WELDER 200 mg Given 02/28/2020 9:21 PM TIG WELDER 200 mg glucagon HCL 1 mg/mL injection 1 mg 1 mg, IM, SEE ADMIN INSTRUCTIONS, Starting on 02/20/20 at 1848, Until 02/29/20 at 1602, Routine heparin, porcine (pf) 10 unit/mL IV syringe 20 Units 20 Units, IV, ONE TIME ONLY, 1 dose, On Sat02/16/20 at 0900, Stat, Please tube to [phone], Thank you!! Given 02/16/2020 1:22 PM CDT 20 Units heparin, porcine (pf) 10 unit/mL IV syringe 20 Units 20 Units, IV, ONE TIME ONLY, 1 dose, On Sat02/17/20 at 0900, Routine Given 02/17/2020 11:05 AM CDT 20 Units heparin, porcine (pf) 10 unit/mL IV syringe 20 Units 20 Units, IV, ONE TIME ONLY, 1 dose, On Katie 02/18/20 at 1000, Routine, Please tube to [phone]! Thank you! Admin by Another Clinician (Comment) 02/18/2020 10:00 AM CDT 20 Units heparin, porcine lock flush (pf) 100 unit/mL injection 500 Units 500 Units, IV, ONE TIME ONLY, 1 dose, On Sat02/16/20 at 0900, Stat, Please tube to [phone]! Thank you! Given 02/16/2020 1:22 PM CDT 500 Units heparin, porcine lock flush (pf) 100 unit/mL injection 500 Units 500 Units, IV, ONE TIME ONLY, 1 dose, On Sat02/16/20 at 0900, Stat, Please tube to [phone]! Thank you! Given 02/16/2020 1:10 PM CDT 500 Units heparin, porcine lock flush (pf) 100 unit/mL injection 500 Units 500 Units, IV, ONE TIME ONLY, 1 dose, On Sat02/17/20 at 0900, Routine Given 02/17/2020 11:05 AM CDT 500 Units heparin, porcine lock flush (pf) 100 unit/mL injection 500 Units 500 Units, IV, ONE TIME ONLY, 1 dose, On Sat02/17/20 at 0900, Routine Given 02/17/2020 11:06 AM CDT 500 Units heparin, porcine lock flush (pf) 100 unit/mL injection 500 Units 500 Units, IV, ONE TIME ONLY, 1 dose, On Katie 02/18/20 at 1000, Routine, Please tube to [phone], Thank you! Admin by Another Clinician (Comment) 02/18/2020 10:00 AM CDT 500 Units heparin, porcine lock flush (pf) 100 unit/mL injection 500 Units 500 Units, IV, ONE TIME ONLY, 1 dose, On Katie 02/18/20 at 1000, Routine, Please tube to [phone], Thank you! Admin by Another Clinician (Comment) 02/18/2020 10:00 AM CDT 500 Units HYDROcodone-acetaminophen (NORCO) 10-325 mg per tablet 1 Tablet 1 Tablet, Oral, EVERY 4 HOURS PRN, Starting on Sat02/15/20 at 2200, Until Sat02/16/20 at 0802, Pain (See admin instructions), Routine Given 02/16/2020 7:41 AM CDT 1 Tablet Given 02/16/2020 4:15 AM CDT 1 Tablet Given 02/15/2020 10:34 PM CDT 1 Tablet HYDROmorphone (DILAUDID) 2 mg/mL injection 0.3 mg 0.3 mg, IV, EVERY 2 HOURS PRN, Starting on Sat02/17/20 at 1204, Until Sat02/18/20 at 1047, Pain (See admin instructions), Routine Given 02/18/2020 9:38 AM CDT 0.3 mg Given 02/18/2020 4:07 AM CDT 0.3 mg Given 02/17/2020 11:57 PM CDT 0.3 mg HYDROmorphone (DILAUDID) 2 mg/mL injection 0.3 mg 0.3 mg, IV, EVERY 4 HOURS PRN, Starting on Sat02/18/20 at 1100, Until Sat02/19/20 at 1025, Pain (See admin instructions), Routine Given 02/19/2020 6:58 AM CDT 0.3 mg Given 02/19/2020 2:04 AM CDT 0.3 mg Given 02/18/2020 9:24 PM CDT 0.3 mg HYDROmorphone (DILAUDID) 2 mg/mL injection 0.3 mg 0.3 mg, IV, EVERY 8 HOURS PRN, Starting on Sat02/19/20 at 1030, Until Sat02/19/20 at 1812, Pain (See admin instructions), Routine Given 02/19/2020 2:32 PM CDT 0.3 mg HYDROmorphone (DILAUDID) 2 mg/mL injection 0.3 mg 0.3 mg, IV, ONE TIME ONLY, 1 dose, On Sat02/19/20 at 1545, Routine Given 02/19/2020 3:43 PM CDT 0.3 mg HYDROmorphone (DILAUDID) 2 mg/mL injection 0.3 mg 0.3 mg, IV, EVERY 4 HOURS PRN, Starting on Sat02/19/20 at 1815, Until Sat02/22/20 at 1309, Pain (See admin instructions), Routine Given 02/22/2020 8:46 AM CDT 0.3 mg Given 02/22/2020 4:28 AM CDT 0.3 mg Given 02/21/2020 10:33 PM CDT 0.3 mg HYDROmorphone (DILAUDID) 2 mg/mL injection 0.3 mg 0.3 mg, IV, EVERY 4 HOURS PRN, Starting on 02/27/20 at 1000, Until 02/28/20 at 0849, Pain (See admin instructions), Routine Given 02/27/2020 10:5 5 PM CDT 0.3 mg Given 02/27/2020 6:30 PM CDT 0.3 mg Given 02/27/2020 1:58 PM CDT 0.3 mg HYDROmorphone (DILAUDID) 2 mg/mL injection 0.5 mg 0.5 mg, IV, EVERY 2 HOURS PRN, 3 doses, Starting on 02/15/20 at 2100, Until Tu02/16/20 at 0151, Pain (See admin instructions), Routine Given 02/16/2020 1:51 AM CDT 0.5 mg Given 02/15/2020 11:22 PM CDT 0.5 mg Given 02/15/2020 9:11 PM CDT 0.5 mg HYDROmorphone (DILAUDID) 2 mg/mL injection 0.5 mg 0.5 mg, IV, EVERY 2 HOURS PRN, Starting on Sat02/16/20 at 0900, Until Sat02/17/20 at 1204, Pain (See admin instructions), Routine Given 02/17/2020 9:16 AM CDT 0.5 mg Given 02/17/2020 7:21 AM CDT 0.5 mg Given 02/16/2020 10:59 PM CDT 0.5 mg HYDROmorphone (DILAUDID) 2 mg/mL injection 0.5 mg 0.5 mg, IV, EVERY 4 HOURS PRN, Starting on Sat02/22/20 at 1309, Until Sat02/23/20 at 1549, Pain (See admin instructions), Routine Given 02/23/2020 2:25 PM CDT 0.5 mg Given 02/23/2020 9:45 AM CDT 0.5 mg Given 02/22/2020 10:37 PM CDT 0.5 mg HYDROmorphone (DILAUDID) 2 mg/mL injection 0.6 mg 0.6 mg, IV, EVERY 4 HOURS PRN, Starting on Sat02/23/20 at 1548, Until Sat02/24/20 at 0821, Pain (See admin instructions), Routine Given 02/24/2020 4:31 AM CDT 0.6 mg Given 02/24/2020 12:01 AM CDT 0.6 mg Given 02/23/2020 7:38 PM CDT 0.6 mg HYDROmorphone (DILAUDID) 2 mg/mL injection 0.6 mg 0.6 mg, IV, EVERY 3 HOURS PRN, Starting on Sat02/24/20 at 0830, Until Sat02/27/20 at 0956, Pain (See admin instructions), Routine Given 02/27/2020 6:45 AM CDT 0.6 mg Given 02/27/2020 3:32 AM CDT 0.6 mg Given 02/26/2020 10:23 PM CDT 0.6 mg HYDROmorphone (DILAUDID) 2 mg/mL injection 1 mg 1 mg, IV, ONE TIME ONLY, 1 dose, On 02/16/20 at 0800, Routine Given 02/16/2020 8:04 AM CDT 1 mg insulin glargine (LANTUS) injection 12 Units 12 Units, subCUT, DAILY, First dose on 02/27/20 at 1130, Until Discontinued, Routine Given 02/28/2020 9:19 AM TIG WELDER 12 Units Arm, Right Upper Given 02/27/2020 12:35 PM CDT 12 Units D eltoid, Right insulin glargine (LANTUS) injection 12 Units 12 Units, subCUT, DAILY, First dose (after last modification) on 02/29/20 at 1030, Until Discontinued, Routine Given 02/29/2020 11:53 AM TIG WELDER 12 Units Arm, Right insulin glargine (LANTUS) injection 15 Units 15 Units, subCUT, ONE TIME ONLY, 1 dose, On 02/21/20 at 1030, Routine Given 02/21/2020 1:53 PM CDT 15 Units A rm, Left Upper insulin glargine (LANTUS) injection 35 Units 35 Units, subCUT, DAILY WITH BREAKFAST, First dose on Sat02/19/20 at 0900, Until Discontinued, Routine, On hold since 02/21/2020 at 0816 until manually unheld Given 02/20/2020 9:52 AM CDT 35 Units Arm, Left Upper Given 02/19/2020 10:12 AM CDT 35 Units A rm, Right Upper insulin lispro (HumaLOG) injection 0-3 Units 0-3 Units, subCUT, DAILY AT BEDTIME, First dose on 02/28/20 at 2100, Until Discontinued, Routine insulin lispro (HumaLOG) injection 0-4 Units 0-4 Units, subCUT, THREE TIMES DAILY WITH MEALS, First dose on 02/28/20 at 0745, Until Discontinued, Routine Given 02/28/2020 1:00 PM TIG WELDER 3 Units Arm, Left Upper Given 02/28/2020 9:19 AM TIG WELDER 1 Units Ar m, Right Upper insulin lispro (HumaLOG) injection 0-7 Units 0-7 Units, subCUT, THREE TIMES DAILY WITH MEALS, First dose on Sat02/19/20 at 0745, Until Discontinued, Routine Given 02/21/2020 12:00 PM CDT 1 Units Arm, Left Upper insulin lispro (HumaLOG) injection 0-7 Units 0-7 Units, subCUT, EVERY 4 HOURS, First dose (after last modification) on Sat02/23/20 at 1600, Until Discontinued, Routine Given 02/26/2020 10:04 AM CDT 1 Units Arm, Left Upper Given 02/25/2020 8:00 PM CDT 1 Units Ar m, Left Upper Given 02/25/2020 4:00 PM CDT 1 Units Ar m, Right Upper insulin lispro (HumaLOG) injection 0-7 Units 0-7 Units, subCUT, EVERY 4 HOURS, First dose (after last modification) on Sat02/26/20 at 2200, Until Discontinued, Routine Given 02/28/2020 4:46 AM TIG WELDER 3 Units Arm, Left Upper Given 02/28/2020 12:42 AM CDT 2 Units A rm, Right Upper Given 02/27/2020 8:40 PM CDT 3 Units Ar m, Right Upper insulin lispro (HumaLOG) injection 3 Units 3 Units, subCUT, THREE TIMES DAILY WITH MEALS, First dose on Sat02/28/20 at 0745, Until Discontinued, Routine Given 02/28/2020 4:27 PM TIG WELDER 3 Units Abdominal Tissue Given 02/28/2020 1:00 PM TIG WELDER 3 Units Ar m, Left Upper Given 02/28/2020 9:19 AM TIG WELDER 3 Units Ar m, Right Upper insulin lispro (HumaLOG) injection 4 Units 4 Units, subCUT, THREE TIMES DAILY WITH MEALS, First dose (after last modification) on Sat02/29/20 at 1030, Until Discontinued, Routine Given 02/29/2020 11:55 AM TIG WELDER 4 Units Arm, Right insulin regular (HUMULIN R,NOVOLIN R) 1 Units/mL in sodium chloride 0.9% infusion 0-25 Units/hr (0-25 mL/hr), IV, TITRATE, Starting on Sat02/15/20 at 2215, Until Sat02/19/20 at 0731 Rate Verify 02/19/2020 6:00 AM CDT 1.7 Units/hr 1.7 mL/hr Rate Change 02/19/2020 6:00 AM CDT 1.7 Units/hr 1.7 mL/hr Rate Change 02/19/2020 5:07 AM CDT 2.2 Units/hr 2.2 mL/hr insulin regular (HUMULIN R,NOVOLIN R) injection 5 Units 5 Units, subCUT, ONE TIME ONLY, 1 dose, On Sat02/15/20 at 2215, Routine Given 02/16/2020 12:11 AM CDT 5 Units Arm, Right Upper iopamidoL (ISOVUE-300) 61 % injection (drawn from multi-use bulk pack) 120 mL 120 mL, IV, INTRA-PROCEDURE ONCE, 1 dose, Starting on Sat02/15/20 at 2127, Until Sat02/15/20 at 8, Routine Contrast Given 02/15/2020 9:28 PM CDT 120 mL iopamidoL (ISOVUE-300) 61 % injection (drawn from multi-use bulk pack) 120 mL 120 mL, IV, INTRA-PROCEDURE ONCE, 1 dose, Starting on Sat02/26/20 at 1956, Until Sat02/26/20 at 2224, Routine Contrast Given 02/26/2020 10:24 PM CDT 120 mL ketorolac (TORADOL) injection 15 mg 15 mg, IV, ONE TIME ONLY, 1 dose, On Sat02/23/20 at 1630, Routine Given 02/23/2020 4:42 PM CDT 15 mg lansoprazole (PREVACID) 3 mg/mL oral suspension compound 30 mg 30 mg, NG Tube, EVERY 12 HOURS (BlD), First dose on Sat02/26/20 at 2100, Until Discontinued, Routine, Indication: Gastroesophageal reflux disease (GERD) Given 02/28/2020 9:00 AM TIG WELDER 30 mg Given 02/27/2020 8:50 PM CDT 30 mg Given 02/27/2020 8:51 AM CDT 30 mg levothyroxine (SYNTHROID) tablet 200 mcg 200 mcg, Oral, DAILY EARLY, First dose on Sat02/16/20 at 0900, Until Discontinued, Routine Given 02/24/2020 5:45 AM CDT 200 mcg Given 02/23/2020 5:31 AM CDT 200 mcg Given 02/22/2020 5:10 AM CDT 200 mcg levothyroxine (SYNTHROID) tablet 200 mcg 200 mcg, Oral, DAILY EARLY, First dose (after last modification) on Katie 02/25/20 at 0600, Until Discontinued, Routine Given 02/29/2020 6:18 AM TIG WELDER 200 mcg Given 02/28/2020 5:41 AM TIG WELDER 200 mcg Given 02/27/2020 5:20 AM CDT 200 mcg seitva-[id number] DR TING) 12,000-38,000-60,000 unit per capsule 2 Capsule 2 Capsule, Oral, THREE TIMES DAILY WITH MEALS, First dose on 02/27/20 at 1430, Until Discontinued, Routine Given 02/29/2020 11:58 AM TIG WELDER 2 Capsule s Given 02/29/2020 10:18 AM TIG WELDER 2 Capsules Given 02/28/2020 4:30 PM TIG WELDER 2 Capsules magnesium sulfate in water 2 gram/50 mL (4 %) IVPB 2 Gram 2 Gram, IV, ONE TIME ONLY, 1 dose, On Sat02/26/20 at 1030, Routine New Bag 02/26/2020 11:29 AM CDT 2 Grams 25 mL/hr magnesium sulfate in water 2 gram/50 mL (4 %) IVPB 2 Gram 2 Gram, IV, ONE TIME ONLY, 1 dose, On 02/27/20 at 1500, Routine New Bag 02/27/2020 2:12 PM CDT 2 Grams 25 mL/hr morphine 4 mg/mL injection 4 mg 4 mg, IV, EVERY 2 HOURS PRN, 2 doses, Starting on Sat02/15/20 at 1948, Until Sat02/15/20 at 2205, Pain, Routine Given 02/15/2020 7:59 PM CDT 4 mg morphine injection 6 mg 6 mg, IV, ONE TIME ONLY, 1 dose, On Sat02/15/20 at 2030, Routine Given 02/15/2020 8:34 PM CDT 6 mg naloxone (NARCAN) 0.4 mg/mL injection 0.1 mg 0.1 mg, IV, SEE ADMIN INSTRUCTIONS, Starting on Sat02/15/20 at 2156, Until Sat02/29/20 at 1602, Routine nortriptyline (PAMELOR) capsule 25 mg 25 mg, Oral, DAILY AT BEDTIME, First dose on Sat02/26/20 at 2100, Until Discontinued, Routine Given 02/28/2020 9:21 PM TIG WELDER 25 mg Given 02/27/2020 11:00 PM CDT 25 mg Given 02/26/2020 10:22 PM CDT 25 mg ondansetron (ZOFRAN) 4 mg/2 mL injection 4 mg 4 mg, IV, ONE TIME ONLY, 1 dose, On Sat02/15/20 at 2000, Routine Given 02/15/2020 7:58 PM CDT 4 mg ondansetron (ZOFRAN) 4 mg/2 mL injection 4 mg 4 mg, IV, ONE TIME ONLY, 1 dose, On Sat02/16/20 at 0115, Routine Given 02/16/2020 1:51 AM CDT 4 mg ondansetron (ZOFRAN) 4 mg/2 mL injection 4 mg 4 mg, IV, EVERY 6 HOURS PRN, Starting on Sat02/16/20 at 1802, Until Sat02/29/20 at 1602, Nausea/Emesis, Routine Given 02/25/2020 8:37 PM CDT 4 mg Given 02/25/2020 11:30 AM CDT 4 mg Given 02/25/2020 6:22 AM CDT 4 mg oxyCODONE (ROXICODONE) oral solution 10 mg 10 mg, NG Tube, EVERY 6 HOURS, First dose (after last modification) on Sat02/26/20 at 1200, Until Discontinued, Routine Given 02/28/2020 5:19 PM TIG WELDER 10 mg Given 02/28/2020 12:17 PM TIG WELDER 10 mg Given 02/28/2020 5:44 AM TIG WELDER 10 mg oxyCODONE (ROXICODONE) tablet 10 mg 10 mg, Oral, EVERY 6 HOURS, First dose on Sat02/16/20 at 0815, Until Discontinued, Routine Given 02/24/2020 1:2 0 PM CDT 10 mg Given 02/24/2020 5:45 AM CDT 10 mg Given 02/24/2020 12:37 AM CDT 10 mg oxyCODONE (ROXICODONE) tablet 10 mg 10 mg, Oral, EVERY 6 HOURS PRN, Starting on Sat02/24/20 at 2057, Until Sat02/26/20 at 1017, Pain (See admin instructions), Routine Given 02/25/2020 6:22 AM CDT 10 mg Given 02/24/2020 10:22 PM CDT 10 mg oxyCODONE (ROXICODONE) tablet 5 mg 5 mg, Oral, EVERY 6 HOURS, First dose on Sat02/28/20 at 2015, Until Discontinued, Routine Given 02/29/2020 6:18 AM TIG WELDER 5 mg Given 02/29/2020 12:54 AM TIG WELDER 5 mg oxyCODONE (ROXICODONE) tablet 5 mg 5 mg, Oral, EVERY 6 HOURS PRN, Starting on Sat02/29/20 at 1100, Until Sat02/29/20 at 1602, Pain (See admin instructions), Routine Given 02/29/2020 12:00 PM TIG WELDER 5 mg pantoprazole (PROTONIX) tablet 40 mg 40 mg, Oral, TWO TIMES DAILY, First dose on Sat02/16/20 at 1345, Until Discontinued, Routine, Indication: Gastroesophageal reflux disease (GERD) Given 02/24/2020 9:34 AM CDT 40 mg Given 02/23/2020 8:08 PM CDT 40 mg Given 02/23/2020 9:42 AM CDT 40 mg pantoprazole (PROTONIX) tablet 40 mg 40 mg, Oral, TWO TIMES DAILY, First dose on Sat02/24/20 at 2115, Until Discontinued, Routine, Indication: Gastroesophageal reflux disease (GERD) Given 02/26/2020 9:52 AM CDT 40 mg Given 02/25/2020 8:38 PM CDT 40 mg Given 02/25/2020 9:18 AM CDT 40 mg pantoprazole (PROTONIX) tablet 40 mg 40 mg, Oral, TWO TIMES DAILY, First dose on Sat02/28/20 at 2100, Until Discontinued, Routine, Indication: Gastroesophageal reflux disease (GERD) Given 02/29/2020 10:18 AM TIG WELDER 40 mg Given 02/28/2020 9:21 PM TIG WELDER 40 mg polyethylene glycol (MIRALAX) packet 17 Gram 17 Gram, Oral, EVERY 12 HOURS PRN, Starting on Sat02/24/20 at 2057, Until Sat02/29/20 at 1602, Constipation, Routine potassium bicarbonate-citric acid (EFFER-K) tablet 40 mEq 40 mEq, Oral, ONE TIME ONLY, 1 dose, On Sat02/26/20 at 1030, Routine Given 02/26/2020 11:26 AM CDT 40 mEq potassium chloride (KLOR-CON) SR tablet 40 mEq 40 mEq, Oral, ONE TIME ONLY, 1 dose, On Sat02/20/20 at 0830, Routine Given 02/20/2020 9:34 AM CDT 40 mEq potassium chloride 40 mEq in sodium chloride 0.9% 250 mL IVPB 40 mEq, IV, ONE TIME ONLY, 1 dose, On Sat02/23/20 at 1230, at 76.25 mL/hr, Administer over 4 Hours, Routine New Bag 02/23/2020 4:17 PM CDT 40 mEq 76.25 mL/hr potassium CHLORIDE in NaCl 0.9% 1,000 mL 20 mEq/L infusion IV, at 125 mL/hr, CONTINUOUS, Starting on Sat02/15/20 at 2215, Until Katie 02/18/20 at 1050, Routine Started by Another Clinician 02/15/2020 10:15 PM CDT 125 mL/hr potassium Cl in dextrose 5% - NaCl 0.9% 1,000 mL 20 mEq/L infusion IV, at 125 mL/hr, CONTINUOUS, Starting on Sat02/15/20 at 2215, Until Sat02/19/20 at 0734, Routine Bag Switched 02/19/2020 6:13 AM CDT 125 mL/hr Rate Change 02/19/2020 6:12 AM CDT 125 mL/hr Rate Change 02/19/2020 6:09 AM CDT 20 mL/hr sennosides-docusate sodium (SENNA-S) 8.6-50 mg per tablet 2 Tablet 2 Tablet, Oral, DAILY AT BEDTIME, First dose on Sat02/20/20 at 2100, Until Discontinued, Routine Given 02/23/2020 8:08 PM CDT 2 Tablets sodium chloride 0.9 % 250 mL flush bag 25 mL 25 mL, IV, SEE ADMIN INSTRUCTIONS, Starting on Sat02/19/20 at 0746, Until Sat02/29/20 at 1602, Routine sodium chloride 0.9% bolus solution 1,000 mL 1,000 mL, IV, ONE TIME ONLY, 1 dose, On Sat02/15/20 at 2000, at 2,000 mL/hr, Administer over 30 Minutes, Routine New Bag 02/15/2020 8:01 PM CDT 1,000 mL 2000 mL/hr sodium chloride 0.9% bolus solution 1,000 mL 1,000 mL, IV, ONE TIME ONLY, 1 dose, On Sat02/15/20 at 2300, at 999 mL/hr, Administer over 60 Minutes, Routine New Bag 02/15/2020 11:30 PM CDT 1,000 mL 999 mL/hr sodium chloride 0.9% infusion IV, at 125 mL/hr, CONTINUOUS, Starting on Sat02/19/20 at 0745, Until Sat02/19/20 at 1245, Routine Rate Verify 02/19/2020 9:00 AM CDT 125 mL/hr New Bag 02/19/2020 8:01 AM CDT 125 mL/hr sodium chloride 0.9% infusion IV, at 75 mL/hr, CONTINUOUS, Starting on Sat02/24/20 at 1015, Until Sat02/24/20 at 2214, Routine New Bag 02/24/2020 12:09 PM CDT 75 mL/hr sodium chloride 0.9% infusion IV, at 75 mL/hr, CONTINUOUS, Starting on Sat02/26/20 at 0730, Until Sat02/27/20 at 0729, Routine Bag Switched 02/26/2020 9:46 PM CDT 75 mL/hr New Bag 02/26/2020 9:56 AM CDT 75 mL/hr sodium chloride flush injection 10 mL 10 mL, IV, ONE TIME ONLY, 1 dose, On Sat02/15/20 at 2130, Routine Given 02/15/2020 9:28 PM CDT 10 mL sodium chloride flush injection 10 mL 10 mL, IV, ONE TIME ONLY, 1 dose, On Sat02/26/20 at 2000, Routine Given 02/26/2020 10:25 PM CDT 10 mL sodium chloride flush injection 5 mL 5 mL, IV, EVERY 12 HOURS (BlD), First dose on Sat02/19/20 at 0900, Until Discontinued, Routine Given 02/29/2020 10:19 AM TIG WELDER 5 mL Given 02/28/2020 9:24 PM TIG WELDER 5 mL Given 02/28/2020 12:18 PM TIG WELDER 5 mL sodium chloride flush injection 5 mL 5 mL, IV, SEE ADMIN INSTRUCTIONS, Starting on Sat02/19/20 at 0746, Until Sat02/29/20 at 1602, Routine thiamine (VITAMIN B-1) 100 mg in sodium chloride 0.9% 100 mL IVPB 100 mg, IV, DAILY, 5 doses, First dose on Sat02/24/20 at 1130, Last dose on Sat02/28/20 at 0900, Routine New Bag 02/28/2020 2:43 PM TIG WELDER 100 mg 116 mL/hr New Bag 02/27/2020 8:52 AM CDT 100 mg 116 mL/hr New Bag 02/26/2020 9:57 AM CDT 100 mg 116 mL/hr traZODone (DESYREL) tablet 100 mg 100 mg, Oral, ONE TIME ONLY, 1 dose, On Katie 02/18/20 at 2030, Routine Given 02/18/2020 8:58 PM CDT 100 mg traZODone (DESYREL) tablet 100 mg 100 mg, Oral, NIGHTLY PRN, Starting on Sat02/19/20 at 1041, Until Sat02/24/20 at 1345, Insomnia, Routine Given 02/23/2020 10:46 PM CDT 100 mg Given 02/22/2020 10:47 PM CDT 100 mg Given 02/21/2020 10:26 PM CDT 100 mg traZODone (DESYREL) tablet 100 mg 100 mg, Oral, NIGHTLY PRN, Starting on Sat02/24/20 at 2057, Until Sat02/26/20 at 1022, Insomnia, Routine Given 02/25/2020 9:18 PM CDT 100 mg Given 02/24/2020 9:33 PM CDT 100 mg traZODone (DESYREL) tablet 100 mg 100 mg, NG Tube, NIGHTLY PRN, Starting on Sat02/26/20 at 1022, Until 02/28/20 at 2007, Insomnia, Routine Given 02/27/2020 8:46 PM CDT 100 mg Given 02/26/2020 10:23 PM CDT 100 mg traZODone (DESYREL) tablet 100 mg 100 mg, Oral, NIGHTLY PRN, Starting on 02/28/20 at 2007, Until 02/29/20 at 1602, Insomnia, Routine Given 02/28/2020 10:14 PM TIG WELDER 100 mg water sterile injection See Admin Instructions, ONE TIME ONLY, 1 dose, On Sat02/16/20 at 1100, Routine Given 02/16/2020 11:18 AM CDT 10 mL Other (Comment) documented in this encounter Active and Recently Administered Medications Due to Daylight Saving Time, this section may contain times in both CDT and TIG WELDER. Scheduled Medication Order 02/27/2020 02/28/2020 02/29/2020 acetaminophen (TYLENOL) 325 mg/10.15 mL oral solution 1,000.6158 mg (CANCELED) 1,000.6158 mg (rounded from 1,000 mg), NG Tube, EVERY 8 HOURS, First dose on Sat02/26/20 at 1300, Until Discontinued, Routine 0520 (Given - Provider: Schuyler E Collman, GN)1237 (Given - Provider: Harvey Littlejohn RN)204 (Given - Provider: Sylvie Carroll, CLAU) 0541 (Given - Provider: Erin Herndon, CLAU)1217 (Given - Provider: Liudmila Jean Baptiste, CLAU) acetaminophen (TYLENOL) tablet 1,000 mg 1,000 mg, Oral, EVERY 8 HOURS, First dose on Sat02/28/20 at 2100, Until Discontinued, Routine 2120 (Given - Provider: Betty Davis RN) 0618 (Given - Provider: Betty Davis, CLAU)1200 (Given - Provider: Carole Nam, CLAU) atorvastatin (LIPITOR) tablet 80 mg (CANCELED) 80 mg, NG Tube, DAILY AT BEDTIME, First dose (after last modification) on Sat02/26/20 at 2100, Until Discontinued, Routine 2045 (Given - Provider: Sylvie Carroll RN) atorvastatin (LIPITOR) tablet 80 mg 80 mg, Oral, DAILY AT BEDTIME, First dose (after last modification) on Sat02/28/20 at 2100, Until Discontinued, Routine 2120 (Given - Provider: Betty Davis RN) citalopram (CeleXA) tablet 40 mg (CANCELED) 40 mg, NG Tube, DAILY AT BEDTIME, First dose (after last modification) on Sat02/26/20 at 2100, Until Discontinued, Routine 2044 (Given - Provider: Sylvie Carroll RN) citalopram (CeleXA) tablet 40 mg 40 mg, Oral, DAILY AT BEDTIME, First dose (after last modification) on Sat02/28/20 at 2100, Until Discontinued, Routine 2120 (Given - Provider: Betty Davis RN) dextrose 5 % in water 250 mL flush bag 25 mL 25 mL, IV, SEE ADMIN INSTRUCTIONS, Starting on Sat02/19/20 at 0746, Until Sat02/29/20 at 1602, Routine dextrose 5% - sodium chloride 0.9% infusion IV, at 40 mL/hr, SEE ADMIN INSTRUCTIONS, Starting on 02/20/20 at 1848, Until 02/29/20 at 1602, Routine dextrose 50% (D50) syringe 12.5 Gram 12.5 Gram, IV, SEE ADMIN INSTRUCTIONS, Starting on 02/20/20 at 1848, Until Sat02/29/20 at 1602, Routine dextrose 50% (D50) syringe 25 Gram 25 Gram, IV, SEE ADMIN INSTRUCTIONS, Starting on Sat02/20/20 at 1848, Until Sat02/29/20 at 1602, Routine dicyclomine (BENTYL) capsule 20 mg 20 mg, Oral, THREE TIMES DAILY BEFORE MEALS, First dose on Sat02/26/20 at 1630, Until Discontinued, Routine 0519 (Given - Provider: BLAISE Alexis)1117 (Given - Provider: Harvey Littlejohn, CLAU)1546 (Given - Provider: Harvey Littlejohn, CLAU) 0540 (Given - Provider: Erin Herndon RN)1217 (Given - Provider: Liudmila Jean Baptiste, CLAU)1632 (Given - Provider: Desiree Hinton RN) 0618 (Given - Provider: Betty Davis RN)1018 (Given - Provider: Carole Nam RN) enoxaparin (LOVENOX) injection 40 mg 40 mg, subCUT, DAILY, First dose on Sat02/16/20 at 0900, Until Discontinued, Routine, Indication: Prophylaxis of VTE, Dose to be adjusted per facility protocol? Yes 0854 (Given - Provider: Harvey Littlejohn RN) 0917 (Given - Provider: Liudmila Jean Baptiste, CLAU) 1020 (Given - Provider: Carole Nam, CLAU) fenofibrate (LOFIBRA) tablet 160 mg (CANCELED) 160 mg, NG Tube, DAILY, First dose (after last modification) on Sat02/27/20 at 0900, Until Discontinued, Routine 0851 (Given - Provider: Harvey Littlejohn RN) 0918 (Given - Provider: Liudmila Jean Baptiste, CLAU) fenofibrate (LOFIBRA) tablet 160 mg 160 mg, Oral, DAILY, First dose (after last modification) on Sat02/29/20 at 0900, Until Discontinued, Routine 1018 (Given - Provider: Carole Nam, CLAU) gabapentin (NEURONTIN) capsule 200 mg (CANCELED) 200 mg, NG Tube, EVERY 8 HOURS, First dose (after last modification) on Sat02/26/20 at 1300, Until Discontinued, Routine 0520 (Given - Provider: BLAISE Alexis)1235 (Given - Provider: Harvey Littlejohn RN)2046 (Given - Provider: Sylvie Carroll RN) 0540 (Given - Provider: Erin Herndon RN)1217 (Given - Provider: Liudmila Jean Baptiste, CLAU) gabapentin (NEURONTIN) capsule 200 mg (CANCELED) 200 mg, Oral, EVERY 8 HOURS, First dose (after last modification) on 02/28/20 at 2100, Until Discontinued, Routine 212 (Given - Provider: Betty Davis, CLAU) 0618 (Given - Provider: Betty Davis RN) glucagon HCL 1 mg/mL injection 1 mg 1 mg, IM, SEE ADMIN INSTRUCTIONS, Starting on 02/20/20 at 1848, Until 02/29/20 at 1602, Routine insulin glargine (LANTUS) injection 12 Units (CANCELED) 12 Units, subCUT, DAILY, First dose on 02/27/20 at 1130, Until Discontinued, Routine 1235 (Given - Provider: Harvey Littlejohn RN - Comment: [id number]) 0919 (Given - Provider: Liudmila Jean Baptiste RN - Comment: bg 200) insulin glargine (LANTUS) injection 12 Units 12 Units, subCUT, DAILY, First dose (after last modification) on 02/29/20 at 1030, Until Discontinued, Routine 1153 (Given - Provider: Carole Nam RN) insulin lispro (HumaLOG) injection 0-3 Units 0-3 Units, subCUT, DAILY AT BEDTIME, First dose on 02/28/20 at 2100, Until Discontinued, Routine 2100 (Not Given - Provider: Betty Davis RN - Reason: Lab results - Comment: [id number]) insulin lispro (HumaLOG) injection 0-4 Units 0-4 Units, subCUT, THREE TIMES DAILY WITH MEALS, First dose on 02/28/20 at 0745, Until Discontinued, Routine 0919 (Given - Provider: Liudmila Jean Baptiste RN - Comment: bg 200)1300 (Given - Provider: Liudmila A Markel, RN - Comment: bg 251)1628 (Not Given - Provider: Desiree Hinton, RN - Reason: Lab results - Comment: bg 170) 0700 (Not Given - Provider: Carole Nam RN - Reason: Lab results - Comment: bg 141)1154 (Not Given - Provider: Carole Nam, RN - Reason: Lab results - Comment: bg 166) insulin lispro (HumaLOG) injection 0-7 Units (CANCELED) 0-7 Units, subCUT, EVERY 4 HOURS, First dose (after last modification) on Sat02/26/20 at 2200, Until Discontinued, Routine 0400 (Given - Provider: BLAISE Alexis)0800 (Given - Provider: Harvey Littlejohn RN - Comment: [id number])1200 (Given - Provider: Harvey Littlejohn RN - Comment: [id number])1639 (Given - Provider: Harvey Littlejohn RN - Comment: [id number])2040 (Given - Provider: Sylvie Carroll RN - Comment: BS 231) 0042 (Given - Provider: Sylvie Carroll RN - Comment: BS 193)0446 (Given - Provider: rEin Herndon, CLAU) insulin lispro (HumaLOG) injection 3 Units (CANCELED) 3 Units, subCUT, THREE TIMES DAILY WITH MEALS, First dose on Sat02/28/20 at 0745, Until Discontinued, Routine 0919 (Given - Provider: Liudmila Jean Baptiste, RN - Comment: bg 200)1300 (Given - Provider: Liudmila Jean Baptiste, RN - Comment: bg 251)1627 (Given - Provider: Desiree Hinton, RN - Comment: [id number]) 0700 (Canceled Entry - Provider: Carole Nam, CLAU) insulin lispro (HumaLOG) injection 4 Units 4 Units, subCUT, THREE TIMES DAILY WITH MEALS, First dose (after last modification) on Sat02/29/20 at 1030, Until Discontinued, Routine 1155 (Given - Provider: Carole Nam, CLAU) lansoprazole (PREVACID) 3 mg/mL oral suspension compound 30 mg (CANCELED) 30 mg, NG Tube, EVERY 12 HOURS (BlD), First dose on Sat02/26/20 at 2100, Until Discontinued, Routine, Indication: Gastroesophageal reflux disease (GERD) 0851 (Given - Provider: Harvey Littlejohn RN)2050 (Given - Provider: Sylvie Carroll, CLAU) 0900 (Given - Provider: Liudmila Jean Baptiste, CLAU) levothyroxine (SYNTHROID) tablet 200 mcg 200 mcg, Oral, DAILY EARLY, First dose (after last modification) on Katie 02/25/20 at 0600, Until Discontinued, Routine 0520 (Given - Provider: BLAISE Alexis) 0541 (Given - Provider: Erin Herndon, CLAU) 0618 (Given - Provider: Betty Davis, CLAU) brbsxr-hmspwbdi-wcjspdl DR (CREON) 12,000-38,000-60,000 unit per capsule 2 Capsule 2 Capsule, Oral, THREE TIMES DAILY WITH MEALS, First dose on 02/27/20 at 1430, Until Discontinued, Routine 1430 (Canceled Entry - Provider: Harvey Littlejohn RN)1745 (Given - Provider: Harvey Littlejohn RN) 0918 (Given - Provider: Liudmila Jean Baptiste, CLAU)1217 (Given - Provider: Liudmila Jean Baptiste, CLAU)1630 (Given - Provider: Desiree Hinton, CLAU) 1018 (Given - Provider: Carole Nam, CLAU)1158 (Given - Provider: Carole Nam, CLAU) magnesium sulfate in water 2 gram/50 mL (4 %) IVPB 2 Gram (COMPLETED) 2 Gram, IV, ONE TIME ONLY, 1 dose, On 02/27/20 at 1500, Routine 1412 (New Bag - Provider: Harvey Littlejohn RN)1612 (Stopped - Provider: Harvey Littlejohn RN) naloxone (NARCAN) 0.4 mg/mL injection 0.1 mg 0.1 mg, IV, SEE ADMIN INSTRUCTIONS, Starting on 02/15/20 at 2156, Until Sat02/29/20 at 1602, Routine nortriptyline (PAMELOR) capsule 25 mg 25 mg, Oral, DAILY AT BEDTIME, First dose on Sat02/26/20 at 2100, Until Discontinued, Routine 2300 (Given - Provider: Sylvie Carroll RN - Comment: late d/t missing medication) 2120 (Given - Provider: Betty Davis RN) oxyCODONE (ROXICODONE) oral solution 10 mg (CANCELED) 10 mg, NG Tube, EVERY 6 HOURS, First dose (after last modification) on Sat02/26/20 at 1200, Until Discontinued, Routine 0035 (Given - Provider: BLAISE Alexis)0521 (Given - Provider: BLAISE Alexis)1117 (Given - Provider: Harvey Littlejohn RN)1745 (Given - Provider: Harvey Littlejohn RN) 0043 (Given - Provider: Sylvie Carroll RN)0544 (Given - Provider: Erin Herndon RN)1217 (Given - Provider: Liudmila Jean Baptiste RN)1719 (Given - Provider: Desiree Hinton RN) oxyCODONE (ROXICODONE) tablet 5 mg (CANCELED) 5 mg, Oral, EVERY 6 HOURS, First dose on 02/28/20 at 2015, Until Discontinued, Routine 2014 (Canceled Entry - Provider: Betty Davis RN) 0054 (Given - Provider: Betty Davis RN)0618 (Given - Provider: Betty Davis RN) pantoprazole (PROTONIX) tablet 40 mg 40 mg, Oral, TWO TIMES DAILY, First dose on 02/28/20 at 2100, Until Discontinued, Routine, Indication: Gastroesophageal reflux disease (GERD) 2120 (Given - Provider: Betty Davis RN) 1018 (Given - Provider: Carole Nam RN) sodium chloride 0.9 % 250 mL flush bag 25 mL 25 mL, IV, SEE ADMIN INSTRUCTIONS, Starting on Sat02/19/20 at 0746, Until Sat02/29/20 at 1602, Routine sodium chloride flush injection 5 mL 5 mL, IV, EVERY 12 HOURS (BlD), First dose on Sat02/19/20 at 0900, Until Discontinued, Routine 1117 (Given - Provider: Harvey Littlejohn RN)2100 (Not Given - Provider: Sylvie Carroll RN - Reason: Other - See Comment - Comment: IVF infusing) 1218 (Given - Provider: Liudmila Jean Baptiste, CLAU)2124 (Given - Provider: Betty Davis, CLAU) 1019 (Given - Provider: Carole Nam RN) sodium chloride flush injection 5 mL 5 mL, IV, SEE ADMIN INSTRUCTIONS, Starting on 02/19/20 at 0746, Until 02/29/20 at 1602, Routine thiamine (VITAMIN B-1) 100 mg in sodium chloride 0.9% 100 mL IVPB (COMPLETED) 100 mg, IV, DAILY, 5 doses, First dose on 02/24/20 at 1130, Last dose on 02/28/20 at 0900, Routine 0852 (New Bag - Provider: Harvey Littlejohn RN)0952 (Stopped - Provider: Harvey Littlejohn RN) 1443 (New Bag - Provider: Liudmila Jean Baptiste, CLAU)1543 (Stopped - Provider: Desiree Hinton RN) PRN Medication Order 02/27/2020 02/28/2020 02/29/2020 bisacodyL (DULCOLAX) rectal suppository 10 mg 10 mg, Rectal, DAILY PRN, Starting on Katie 02/18/20 at 1715, Until 02/29/20 at 1602, Constipation HYDROmorphone (DILAUDID) 2 mg/mL injection 0.3 mg (CANCELED) 0.3 mg, IV, EVERY 4 HOURS PRN, Starting on 02/27/20 at 1000, Until 02/28/20 at 0849, Pain (See admin instructions), Routine 1358 (Given - Provider: Harvey Littlejohn RN)1830 (Given - Provider: Harvey Littlejohn RN)2255 (Given - Provider: Sylvie Carroll RN) HYDROmorphone (DILAUDID) 2 mg/mL injection 0.6 mg (CANCELED) 0.6 mg, IV, EVERY 3 HOURS PRN, Starting on 02/24/20 at 0830, Until 02/27/20 at 0956, Pain (See admin instructions), Routine 0332 (Given - Provider: BLAISE Alexis)0645 (Given - Provider: BLAISE Alexis) ondansetron (ZOFRAN) 4 mg/2 mL injection 4 mg 4 mg, IV, EVERY 6 HOURS PRN, Starting on Tu02/16/20 at 1802, Until Sat02/29/20 at 1602, Nausea/Emesis, Routine oxyCODONE (ROXICODONE) tablet 5 mg 5 mg, Oral, EVERY 6 HOURS PRN, Starting on Sat02/29/20 at 1100, Until Sat02/29/20 at 1602, Pain (See admin instructions), Routine 1200 (Given - Provider: Carole Nam RN) polyethylene glycol (MIRALAX) packet 17 Gram 17 Gram, Oral, EVERY 12 HOURS PRN, Starting on Sat02/24/20 at 2057, Until Sat02/29/20 at 1602, Constipation, Routine traZODone (DESYREL) tablet 100 mg (CANCELED) 100 mg, NG Tube, NIGHTLY PRN, Starting on Sat02/26/20 at 1022, Until 02/28/20 at 2006, Insomnia, Routine 2045 (Given - Provider: Sylvie Carroll RN) traZODone (DESYREL) tablet 100 mg 100 mg, Oral, NIGHTLY PRN, Starting on 02/28/20 at 2007, Until Sat02/29/20 at 1602, Insomnia, Routine 2214 (Given - Provider: Betty Davis RN) documented in this encounter Care Teams Devulcanizer Loader Relationship Specialty Start Date End Date Guerrero Middleton PA-C PCP - General Physician Concrete Mixing Plant Laborer 02/13/18 documented as of this encounter
--- OUTSIDE RECORDS SUMMARY | 2024-05-03 20:42 | XMS_ITS | Encounter Summary ---
Author Organization [facility] Address [address] Orozco: Epic Prelude ADT [place] [address] Care Team Providers Care Endo Tech Name Role Phone Guerrero Middleton PA-C Primary Care Provide r Encounter Details Date Type Department Care Team (Latest Contact Info) Description 08/10/2019 Travel Social History Tobacco Use Types Packs/Day [...] week 08/21/2018 How often do you attend [facility] or am[facility] services? Never 08/21/2018 Do you [...] have Coronavirus / COVID-19? No / Unsure 08/10/2019 9:47 AM CDT documented as of this encounter Plan of Treatment Upcoming Encounters Date Type Department Care Team (Late st Contact Info) Description 09/14/2024 3:00 PM CDT Office Visit [facility] [address] [place] [address] Marlys Mayer MD [address] [place] [address] documented as of this encounter Visit Diagnoses Not on filedocumented in this encounter Care Teams Endo Tech Relationship Specialty Start Date End Date Guerrero Middleton PA-C PCP - General Physician Commissary Manager 02/13/18 documented as of this encounter
--- OUTSIDE RECORDS SUMMARY | 2024-05-03 20:42 | XMS_ITS | Encounter Summary ---
Author Organization [facility] Address [address] [place] [address] Care Team Providers Care Hadoop Software Engineer Name Role Phone Guerrero Middleton PA-C Primary Care Provide r Encounter Details Date Type Department Care Team (Late st Contact Info) Description 11/04/2019 Orders Only [facility] [address] [place] [address] Alize Arteaga MD NO ADDRESS ON FILE Mixed hyperlipidemia (Primary Dx) Social History Tobacco Use Types [...] often do you attend chur ch or pentecostal services? Never 08/21/2018 Do you belong to [...] [facility] - [address] [place] [address] Marlys Mayer MD [address] [place], [place] [id number] documented as of this encounter Results * (ABNORMAL) TRIGLYCERIDE (11/04/2019 11:33 AM CDT) TRIGLYCERIDE 277(H) <150 mg/dL 11/04/2019 12:31 PM CDT [facility] Blood Collection / Unknown 11/04/2019 11:33 AM CDT 11/04/2019 11:35 AM CDT Narrative [facility] - 11/04/2019 12:31 PM CDT TRIGLYCERIDES ? mg/dL Normal ?< 150 Borderline High ?150 - 199 High ? 200 - 499 Very High ? >= 500 Based on AHA/NCEP Guidelines. Alize Arteaga MD CHEMISTRY ORDER OSVALDO [facility] CLIA# [id number] [address] [place] [address] documented in this encounter Visit Diagnoses Diagnosis Mixed hyperlipidemia- Primary documented in this encounter Care Teams Hadoop Software Engineer Relationship Specialty Start Date End Date Guerrero Middleton PA-C PCP - General Physician Cementing Machine Operator 02/13/18 documented as of this encounter
--- OUTSIDE RECORDS SUMMARY | 2024-05-03 20:42 | XMS_ITS | Encounter Summary ---
Author Organization [facility] Address [address] [place] [address] Care Team Providers Care Strategic Accounts Manager Name Role Phone Guerrero Middleton PA-C Primary Care Provide r Encounter Details Date Type Department Care Team (Latest Contact Info) Description 07/20/2019 9:49 AM CDT - 07/20/2019 11:59 PM CDT Hospital Encounter [facility] Blood Bank [facility] [address] [facility] [address] [place] [address] Alize Arteaga MD NO ADDRESS ON FILE [...] have Coronavirus / COVID-19? No / Unsure 07/20/2019 9:43 AM CDT documented as of this encounter Last Filed Vital Signs Vital Sign Reading Time Taken Comments Blood Pressure 98/61 07/20/2019 12:30 PM CDT Pulse 90 07/20/2019 12:30 PM CDT Temperature 36.8 ??C (98.2 ??F) 07/20/2019 12:30 PM C DT Respiratory Rate 14 07/20/2019 12:30 PM CDT Oxygen Saturation - - Inhaled [...] 1 Tablet (10 mg) by mouth daily fiscal accountant. 30 Tablet 5 04/08/2019 10/12/2019 levothyroxine 200 [...] Progress Notes * Rosales Tapia, RN - 07/20/2019 10:00 AM CDT Plasma exchange completed using the right and left chest bard powerflow ports for access and returnwith 5% albumin as replacement fluids for a 1.0 volume exchange. Pt tolerated procedure well. Pt deaccessed following proper protocol. Occlusive dressing and gauze applied to both side.Instructions given prior to discharge. Both dressings are clean, dry and intact at time of discharged. Pt left in stable condition. * Alize Arteaga MD - 07/20/2019 10:00 AM CDT CC: ??43??yo female with with acute??hypertriglyceridemic pancreatitis in the setting of?recurrent necrotizing pancreatitis requires??plasma exchange. ?? Interval history: Patient feels well. Admits she hasn't eaten well this week. ?? PMH: ??Hypertriglyceridemia (associated with prior [...] healed with pink scar -L chest port site has bruising and swelling. No drainage or erythema noted. Respiratory: - Unlabored breathing Neuro: - Alert and Oriented x 3 - Normal Affect ?Labs: 07/20/19: WBC??8.2, Hgb 14.0, Hct 42.5, Plt??219 07/20/19: triglyceride??1,669??(preprocedure) ?? A&P: 1. 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 Patient has??recurrent necrotizing pancreatitis??and was??initiated on prophylactic plasma exchange for prevention of hypertriglyceridemic pancreatitis starting 11/12/18 in consultation with Drs. Rudd and Moreno.??(ASFA category III indication for apheresis). 2. ??We will perform a 1.0 volume plasma exchange with all albumin replacement with 100% fluid balance with 2 g calcium gluconate over the procedure. ??Goal triglycerides <200 per ASFA.? I have seen and examined the patient, reviewed pertinent notes and records, and remained immediately available throughout the procedure. ?? Alize Arteaga MD, PhD It Infrastructure Engineer, therapeutic apheresis service [phone] ?? Procedure??notes:?L and R bard ports used for procedure. ??Patient tolerated procedure well. Patient to return in one week. documented in this encounter Plan of Treatment Upcoming Encounters Date Type Department Care Team (Late st Contact Info) Description 09/14/2024 3:00 PM CDT Office Visit [facility] Heart and Vascular - [facility] [address] [place] [address] Marlys Mayer MD [address] [place] [address] documented as of this encounter Procedures Procedure Name Priority Date/Time Associated Diagnosis Comments CBC WITH DIFFERENTIAL Routine 07/20/2019 10:44 AM CDT Hypertriglyceridemi a TRIGLYCERIDE Routine 07/20/2019 10:44 AM CDT Hypertriglyceridemi a documented in this encounter Results * (ABNORMAL) CBC WITH DIFFERENTIAL (07/20/2019 10:44 AM CDT) [facility] WBC 8.2 4.0 - 9.8 K/uL 07/20/2019 10:51 AM CDT [facility] - [facility] RBC 4.79 3.90 - 4.90 M/uL 07/20/2019 10:51 AM CDT [facility] - [facility] HEMOGLOBIN 14.0 11.8 - 14.8 g/dL 07/20/2019 10:51 AM CDT [facility] - [facility] HEMATOCRIT 42.5 35.5 - 44.0 % 07/20/2019 10:51 AM CDT [facility] - [facility] MCV 88.7 82.0 - 99.0 fL 07/20/2019 10:51 AM CDT [facility] - [facility] MCH 29.2 27.2 - 32.6 pg 07/20/2019 10:51 AM CDT [facility] - [facility] MCHC 32.9 31.5 - 35.5 g/dL 07/20/2019 10:51 AM [facility] - [facility] RDW 13.2 11.5 - 14.5 % 07/20/2019 10:51 AM CDT [facility] - [facility] RDW-STDEV 43.6 37.1 - 48.7 fL 07/20/2019 10:51 AM CDT [facility] - [facility] PLATELETS 219 140 - 350 K/uL 07/20/2019 10:51 AM [facility] - [facility] MPV 9.7 9.3 - 12.4 fL 07/20/2019 10:51 AM [facility] - [facility] NEUTROPHILS 69 % 07/20/2019 10:51 AM [facility] - . [facility] LYMPHOCYTES 24 % 07/20/2019 10:51 AM [facility] - . [facility] MONOCYTES 6 % 07/20/2019 10:51 AM [facility] - . [facility] EOSINOPHILS 1 % 07/20/2019 10:51 AM [facility] - . [facility] BASOPHILS 0 % 07/20/2019 10:51 AM [facility] - . [facility] IMMATURE GRANULOCYTES 1 % 07/20/2019 10:51 AM [facility] - . [facility] Comment:IG (Immature Granulo cyte) count includes Metamyelocytes, Myelocytes, and Promyelocytes NEUTROPHIL ABSOLUTE 5.67 1.90 - 7.00 K/uL 07/20/2019 10:51 AM CDT [facility] - . [facility] LYMPHOCYTE ABSOLUTE 1.94 0.70 - 4.50 K/uL 07/20/2019 10:51 AM [facility] - . [facility] MONOCYTE ABSOLUTE 0.49 0.10 - 1.30 K/uL 07/20/2019 10:51 AM CDT [facility] - . [facility] EOSINOPHIL ABSOLUTE 0.08 0.00 - 0.70 K/uL 07/20/2019 10:51 AM CDT [facility] - [facility] BASOPHILS ABSOLUTE 0.02 0.00 - 0.20 K/uL 07/20/2019 10:51 AM CDT [facility] - [facility] IMMATURE GRANULOCYTES ABSOLUTE 0.04(H) 0.00 - 0.03 K/uL 07/20/2019 10:51 AM CDT [facility] - [facility] Blood Venipuncture / Unknown 07/20/2019 10:44 AM CDT 07/20/2019 10:46 AM CDT Alize Arteaga MD HEMATOLOGY ORDE RABLES Performing Organization Address City/[facility]/ZIP Co de Phone Number [facility]. [facility] [id number] [address] [place] [address] * (ABNORMAL) TRIGLYCERIDE (07/20/2019 10:44 AM CDT) TRIGLYCERIDE 1,669(H) <150 mg/dL 07/20/2019 11:37 AM CDT [facility] - [facility] Blood Venipuncture / Unknown 07/20/2019 10:44 AM CDT 07/20/2019 10:46 AM CDT Narrative [facility] - [facility] - 07/20/2019 11:37 AM CDT TRIGLYCERIDES ? mg/dL Normal ?< 150 Borderline High ?150 - 199 High ? 200 - 499 Very High ? >= 500 Based on AHA/NCEP Guidelines. Alize Arteaga MD CHEMISTRY ORDER OSVALDO Performing Organization Address [facility]/ZIP Co de Phone Number [facility] PS DEPT. [facility]# [id number] [address] [place] [address] documented in this encounter Visit Diagnoses Diagnosis Hypertriglyceridemia- Primary Pure hyperglyceridemia documented in this encounter Administered Medications Inactive Administered Medications - up to 3 most recent administrations Medication Order MAR Action Action Date Dose Rate Site calcium GLUCONATE 2,000 mg in sodium chloride 0.9% 120 mL IVPB 2,000 mg, IV, INTRA-PROCEDURE ONCE, 1 dose, Starting on Sat07/20/19 at 0949, Until Sat07/20/19 at 1208, Stat New Bag 07/20/2019 11:08 AM CDT 2,000 mg 135 mL/hr heparin, porcine (pf) 10 unit/mL IV syringe 20 Units 20 Units, IV, ONE TIME ONLY, 1 dose, On Sat07/20/19 at 0845, Routine Given 07/20/2019 12:18 PM CDT 20 Units heparin, porcine lock flush (pf) 100 unit/mL injection 500 Units 500 Units, IV, ONE TIME ONLY, 1 dose, On Sat07/20/19 at 0915, Routine Given 07/20/2019 12:19 PM CDT 500 Units heparin, porcine lock flush (pf) 100 unit/mL injection 500 Units 500 Units, IV, ONE TIME ONLY, 1 dose, On Sat07/20/19 at 0915, Routine Given 07/20/2019 12:19 PM CDT 500 Units documented in this encounter Care Teams Strategic Accounts Manager Relationship Specialty Start Date End Date Guerrero Middleton PA-C PCP - General Physician Truck Supervisor 02/13/18 documented as of this encounter
--- OUTSIDE RECORDS SUMMARY | 2024-05-03 20:42 | XMS_ITS | Encounter Summary ---
Author Organization [facility] Address [address] [place] [address] Care Team Providers Care Financial Cost Analyst Name Role Phone Guerrero Middleton PA-C Primary Care Provide r Encounter Details Date Type Department Care Team (Latest Contact Info) Description 08/10/2019 9:53 AM CDT - 08/10/2019 11:59 PM CDT Hospital Encounter [facility] Blood Bank Donor Center [facility] [address] [place] [address] Alize Arteaga MD NO ADDRESS ON FILE [...] Sign Reading Time Taken Comments Blood Pressure 101/68 08/10/2019 11:56 AM CDT Pulse 86 08/10/2019 11:56 AM CDT Temperature 36.8 ??C (98.2 ??F) 08/10/2019 11:56 AM C DT Respiratory Rate 18 08/10/2019 11:56 AM CDT Oxygen Saturation - - Inhaled Oxygen Concentration - - Weight 84.8 kg (187 lb) 08/10/2019 9:56 AM CDT Height 165.1 cm (5' 5 ) 08/10/2019 9:56 AM CDT Body Mass Index 31.12 08/10/2019 9:56 AM CDT documented in this encounter Medications at [...] 1 Tablet (10 mg) by mouth daily pamphlet distributor. 30 Tablet 5 04/08/2019 10/12/2019 levothyroxine 200 [...] Progress Notes * Puja Paz RN - 08/10/2019 10:00 AM CDT Plasma exchange completed using bilateral chest bard ports. 1.0 Volume, 100% fluid balance using 5%Albumin as replacement fluid. Pt tolerated the procedure well. Next procedure scheduled for 08/26/2019. * Alize Arteaga MD - 08/10/2019 10:00 AM CDT CC: ??43??yo female undergoing prophylaxis for??hypertriglyceridemic pancreatitis in the setting of?recurrent necrotizing pancreatitis requires??plasma exchange. ?? Interval history: Patient feels well. ?? PMH: ??Hypertriglyceridemia (associated with prior episodes of pancreatitis, received inpatient plasma exchanges 04/2018, 07/2018 and 09/2018, started on prophylactic exchanges October 2018, one port removed from R chest and new port placed in L chest 02/18/2019), DM, anxiety, GERG, HLD, hypothyroidism, PCOS ?? Meds: as per IMedExchange. ?? Exam: ?? General Appearance: - Well [...] Oriented x 3 - Normal Affect ?Labs: 08/10/19: WBC??8.6, Hgb 15.0, Hct 44.7, Plt??234 08/10/19: triglyceride??1,397??(preprocedure) ?? A&P: 1. 43??yo female with??recurrent??hypertriglyceridemic pancreatitis [...] the procedure. ?? Alize Arteaga MD, PhD Inventory Clerk, therapeutic apheresis service [phone] ?? Procedure??notes:?L and??R bard ports??used for procedure. ??Patient tolerated procedure well. Patient to return in two weeks. documented in this encounter Plan of Treatment Upcoming Encounters Date Type Department Care Team (Late st Contact Info) Description 09/14/2024 3:00 PM CDT Office Visit [facility] Heart and Vascular - [facility] [address] [address] [address] [place] [address] Marlys Mayer MD [address] [place], [place] [id number] documented as of this encounter Procedures Procedure Name Priority Date/Time Associated Diagnosis Comments CBC WITHOUT DIFFERENTIAL Routine 08/10/2019 10:22 AM CDT Hypertriglyceridemi a TRIGLYCERIDE Routine 08/10/2019 10:22 AM CDT Hypertriglyceridemi a documented in this encounter Results * (ABNORMAL) CBC WITHOUT DIFFERENTIAL (08/10/2019 10:22 AM CDT) WBC 8.6 4.0 - 9.8 K/uL 08/10/2019 10:46 AM CDT [facility] LABORATORY SERVICES [facility] RBC 5.12(H) 3.90 - 4.90 M/uL 08/10/2019 10:46 AM CDT [facility] LABORATORY [facility] HEMOGLOBIN 15.0(H) 11.8 - 14.8 g/dL 08/10/2019 10:46 AM CDT [facility] LABORATORY [facility] HEMATOCRIT 44.7(H) 35.5 - 44.0 % 08/10/2019 10:46 AM CDT [facility] LABORATORY SERVICES - [facility] MCV 87.3 82.0 - 99.0 fL 08/10/2019 10:46 AM CDT [facility] LABORATORY SERVICES - [facility] MCH 29.3 27.2 - 32.6 pg 08/10/2019 10:46 AM CDT [facility] LABORATORY SERVICES - [facility] MCHC 33.6 31.5 - 35.5 g/dL 08/10/2019 10:46 AM CDT [facility] LABORATORY SERVICES - [facility] PLATELETS 234 140 - 350 K/uL 08/10/2019 10:46 AM CDT [facility] LABORATORY SERVICES - [facility] MPV 9.4 9.3 - 12.4 fL 08/10/2019 10:46 AM CDT [facility] LABORATORY SERVICES - [facility] RDW 13.6 11.5 - 14.5 % 08/10/2019 10:46 AM CDT [facility] LABORATORY SERVICES - [facility] RDW-STDEV 43.4 37.1 - 48.7 fL 08/10/2019 10:46 AM CDT [facility] LABORATORY SERVICES - [facility] Blood Venipuncture / Unknown 08/10/2019 10:22 AM CDT 08/10/2019 10:24 AM CDT Alize Arteaga MD HEMATOLOGY ORDE MAGGIE [facility] Retrieve SERVICES [facility]# [id number] [address] [place] [address] * (ABNORMAL) TRIGLYCERIDE (08/10/2019 10:22 AM CDT) TRIGLYCERIDE 1,397(H) <150 mg/dL 08/10/2019 11:10 AM CDT [facility] Retrieve SERVICES [facility] Blood Venipuncture / Unknown 08/10/2019 10:22 AM CDT 08/10/2019 10:24 AM CDT Narrative [facility] LABORATORY SERVICES - [facility] - 08/10/2019 11:10 AM CDT TRIGLYCERIDES ? mg/dL Normal ?< 150 Borderline High ?150 - 199 High ? 200 - 499 Very High ? >= 500 Based on AHA/NCEP Guidelines. Alize Arteaga MD CHEMISTRY ORDER OSVALDO [facility] LABORATORY SERVICES [facility]# [id number] [address] [facility] [place] [address] documented in this encounter Visit Diagnoses Diagnosis Hypertriglyceridemia- Primary Pure hyperglyceridemia documented in this encounter Administered Medications Inactive Administered Medications - up to 3 most recent administrations Medication Order MAR Action Action Date Dose Rate Site calcium GLUCONATE 2,000 mg in sodium chloride 0.9% 120 mL IVPB 2,000 mg, IV, INTRA-PROCEDURE ONCE, 1 dose, Starting on Sat08/10/19 at 1000, Until Sat08/10/19 at 1159, Stat New Bag 08/10/2019 10:27 AM CDT 2,000 mg 270 mL/hr heparin, porcine (pf) 10 unit/mL IV syringe 20 Units 20 Units, IV, POST-PROCEDURE ONCE, 1 dose, Starting on Sat08/10/19 at 0849, Until Sat08/10/19 at 1159, Stat Given 08/10/2019 11:59 AM CDT 20 Units heparin, porcine lock flush (pf) 100 unit/mL injection 500 Units 500 Units, IV, POST-PROCEDURE ONCE, 1 dose, Starting on Sat08/10/19 at 1000, Until Sat08/10/19 at 1159, Stat Given 08/10/2019 11:59 AM CDT 500 Units heparin, porcine lock flush (pf) 100 unit/mL injection 500 Units 500 Units, IV, POST-PROCEDURE ONCE, 1 dose, Starting on Sat08/10/19 at 0850, Until Sat08/10/19 at 1159, Stat Given 08/10/2019 11:59 AM CDT 500 Units documented in this encounter Care Teams Financial Cost Analyst Relationship Specialty Start Date End Date Guerrero Middleton PA-C PCP - General Physician Senior Web Architect 02/13/18 documented as of this encounter
--- OUTSIDE RECORDS SUMMARY | 2024-05-03 20:42 | XMS_ITS | Encounter Summary ---
Author Organization [facility] Address [address] Orozco: Epic Prelude ADT [place] [address] Care Team Providers Care Qa Specialist Name Role Phone Guerrero Middleton PA-C Primary Care Provide r Encounter Details Date Type Department Care Team (Latest Contact Info) Description 07/20/2019 Travel Social History Tobacco Use Types Packs/Day [...] week 08/21/2018 How often do you attend [facility] or buddhism services? Never 08/21/2018 Do you [...] ([facility]) [facility] [address] [place] [address] Marlys Mayer MD [address] [place] [address] documented as of this encounter Visit Diagnoses Not on filedocumented in this encounter Care Teams Qa Specialist Relationship Specialty Start Date End Date Guerrero Middleton PA-C PCP - General Physician Fern Cutter 02/13/18 documented as of this encounter
--- OUTSIDE RECORDS SUMMARY | 2024-05-03 20:42 | XMS_ITS | Encounter Summary ---
Author Organization [facility] Address [address] Orozco: Epic Prelude ADT [place] [address] Care Team Providers Care Adult High School Instructor Name Role Phone Guerrero Middleton PA-C Primary Care Provide r Encounter Details Date Type Department Care Team (Latest Contact Info) Description 12/30/2019 Travel Social History Tobacco Use Types Packs/Day [...] you attend [facility] or caodaism services? Never 08/21/2018 Do you belong to any clubs o r organizations such as orthodox groups, unions, fraternal or athletic groups, or [...] [facility] [place] [facility] - [facility] [address] [address] [address] [place] [address] Marlys Mayer MD [address] [place] [address] documented as of this encounter Visit Diagnoses Not on filedocumented in this encounter Care Teams Adult High School Instructor Relationship Specialty Start Date End Date Guerrero Middleton PA-C PCP - General Physician Agile Developer 02/13/18 documented as of this encounter
--- OUTSIDE RECORDS SUMMARY | 2024-05-03 20:42 | XMS_ITS | Encounter Summary ---
Author Organization [facility] Address [address] Orozco: Epic Prelude ADT [place] [address] Care Team Providers Care Visual Training Aide Name Role Phone Guerrero Middleton PA-C Primary Care Provide r Encounter Details Date Type Department Care Team (Latest Contact Info) Description 09/13/2019 Travel Social History Tobacco Use Types Packs/Day [...] [facility] or druze services? Never 08/21/2018 Do [...] or suspected to have Coronavirus / COVID-19? Unable to assess 09/13/2019 11:52 AM CDT documented as of this encounter Plan of Treatment Upcoming Encounters Date Type Department Care Team (Late st Contact Info) Description 09/14/2024 3:00 PM CDT Office Visit [facility] Heart and Vascular - [facility] [address] [address] [address] [place] [address] Marlys Mayer MD [address] [place] [address] documented as of this encounter Visit Diagnoses Not on filedocumented in this encounter Care Teams Visual Training Aide Relationship Specialty Start Date End Date Guerrero Middleton PA-C PCP - General Physician Insurance Claim Representative 02/13/18 documented as of this encounter
--- OUTSIDE RECORDS SUMMARY | 2024-05-03 20:42 | XMS_ITS | Encounter Summary ---
Author Organization [facility] Address [address] [place] [address] Care Team Providers Care Rib Knitter Name Role Phone Guerrero Middleton PA-C Primary Care Provide r Reason for Visit * Reason Onset Date Comments Smoking Cessation 12/15/2019 Encounter Details Date Type Department Care Team (Late st Contact Info) Description 12/15/2019 Telephone [facility] Pulmonary Rehab [address] [place] [address] Zeynep Davison, ROTARY DRILLER HELPER Smoking Cessation Social History Tobacco Use Types [...] Telephone Encounter - Kelsey Davey RN - 12/16/2019 10:52 AM CDT [employer]: I spoke to Casandra on the phone today. We discussed [employer] and the telephonic calls with a Tobacco Centerpuncher program. ?? Pt is interested in participating. Enrollment forms emailed today. Pt aware once completed packet returned to me I will call to set up the initial consultation call. ?? * Telephone Encounter - Zeynep Davison RCP - 12/15/2019 8:39 AM CDT Received referral from Dr. Gates. Mailed pt smoking cessation information. documented in this encounter Plan of Treatment Upcoming Encounters Date Type Department Care Team (Late st Contact Info) Description 09/14/2024 3:00 PM CDT Office Visit [facility] Heart and Vascular - [place] [address] [place] [address] Marlys Mayer MD [address] [place] [address] documented as of this encounter Visit Diagnoses Not on filedocumented in this encounter Care Teams Rib Knitter Relationship Specialty Start Date End Date Guerrero Middleton PA-C PCP - General Physician Linen Manager 02/13/18 documented as of this encounter
--- OUTSIDE RECORDS SUMMARY | 2024-05-03 20:42 | XMS_ITS | Encounter Summary ---
Author Organization [facility] Address [address] Orozco: Epic Prelude ADT [place] [address] Care Team Providers Care Traffic Signal Supervisor Maintenance Name Role Phone Guerrero Middleton PA-C Primary Care Provide r Encounter Details Date Type Department Care Team (Latest Contact Info) Description 12/14/2019 Travel Social History Tobacco Use Types Packs/Day [...] 08/21/2018 How often do you attend [facility] or yarsanism services? Never 08/21/2018 Do you belong to any clubs o r organizations such as catholic groups, unions, fraternal or athletic groups, [...] Description 09/14/2024 3:00 PM CDT Office Visit [facility] [address] [address] [address] [place] [address] Marlys Mayer MD [address] [place] [address] documented as of this encounter Visit Diagnoses Not on filedocumented in this encounter Care Teams Traffic Signal Supervisor Maintenance Relationship Specialty Start Date End Date Guerrero Middleton PA-C PCP - General Physician Cyber Intel Planner 02/13/18 documented as of this encounter
--- OUTSIDE RECORDS SUMMARY | 2024-05-03 20:42 | XMS_ITS | Encounter Summary ---
Author Organization [facility] Address [address] [place] [address] Care Team Providers Care Sociology Professor Name Role Phone Guerrero Middleton PA-C Primary Care Provide r Encounter Details Date Type Department Care Team (Latest Contact Info) Description 12/04/2019 10:00 AM CDT - 12/04/2019 11:59 PM CDT Hospital Encounter [facility] Donor Services [address] [phone] Alize Arteaga MD NO ADDRESS ON FILE [...] often do you attend chur ch or judaism services? Never 08/21/2018 Do you [...] have Coronavirus / COVID-19? No / Unsure 12/04/2019 9:39 AM CDT documented as of this encounter Last Filed Vital Signs Vital Sign Reading Time Taken Comments Blood Pressure 100/67 12/04/2019 11:30 AM CDT Pulse 89 12/04/2019 11:30 AM CDT Temperature 36.7 ??C (98.1 ??F) 12/04/2019 11:30 AM C DT Respiratory Rate 14 12/04/2019 11:30 AM CDT Oxygen Saturation - - Inhaled [...] by mouth 2 times daily. 06/05/2018 09/26/2023 Jardiance 10 mg tablet Take 1 tablet by mouth early in the morning. 30 Tablet 4 10/12/2019 12/14/2019 levothyroxine 200 mcg tablet Take 1 Tablet [...] Progress Notes * Rosales Tapia, RN - 12/04/2019 12:01 PM CDT Plasma exchange completed using the left and right bard ports for access and return with 5% albuminas replacement fluids for a 1.0 volume exchange. Bard ports locked with heparin ( see MAR) and occlusive dressing + gauze applied. * Alize Arteaga MD - 12/04/2019 10:00 AM CDT CC: ??43??yo female undergoing prophylaxis for??hypertriglyceridemic pancreatitis in the setting of?recurrent necrotizing pancreatitis requires??plasma exchange. ?? Interval history:??Patient??feeling well; not having abdominal pain or nausea. Patient reports thather weight loss has plateaued. ??Optiva low fat diet going well. 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 ?? PMH: ??Hypertriglyceridemia (associated with prior episodes [...] Oriented x 3 - Normal Affect ?Labs: 12/04/2019 WBC 12.2, hemoglobin 13.6, hematocrit 41.4, platelets 256 12/04/2019 preprocedure triglyceride 422 ?? A&P: 1. 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 Patient has??recurrent necrotizing pancreatitis??and was??initiated on prophylactic plasmaexchange for prevention of hypertriglyceridemic pancreatitis starting 11/12/18??in consultation withDrs. Mcleod.??(ASFA category III indication for apheresis). 2. ??We will perform a 1.0 volume plasma exchange with all albumin replacement with 100% fluid balance with 2 g calcium gluconate over the procedure. ??Previously, goal triglycerides <500??per ASFA. However, there is literature that shows the Optia instrument can achieve significant reductions in triglyceride level with a preprocedure triglyceride level as low as 250. We will continue to see Ms. Jones every 28 days and perform a plasma exchange at that time if triglyceride level is above 250. 3. Discussed with patient the importance of keeping the every 28-day schedule to ensure port patency. Patient expressed understanding. ?? I have seen and examined the patient, reviewed pertinent notes and records, and remained immediately available throughout the procedure. ?? Alize Arteaga MD, PhD Propagator Laborer, therapeutic apheresis service [phone] ?? Procedure??notes:?L and??R bard ports??used for procedure. ??Patient tolerated procedure well. Patient to return in??~28 days. documented in this encounter Plan of Treatment Upcoming Encounters Date Type Department Care Team (Late st Contact Info) Description 09/14/2024 3:00 PM CDT Office Visit [facility] Heart and Vascular - [facility] [address] [place] [address] Marlys Mayer MD [address] [place], [place] [phone] documented as of this encounter Procedures Procedure Name Priority Date/Time Associated Diagnosis Comments TRIGLYCERIDE Routine 12/04/2019 10:17 AM CDT Hypertriglyceridemi a CBC WITHOUT DIFFERENTIAL Routine 12/04/2019 10:16 AM CDT Hypertriglyceridemi a documented in this encounter Results * (ABNORMAL) TRIGLYCERIDE (12/04/2019 10:17 AM CDT) TRIGLYCERIDE 422(H) <150 mg/dL 12/04/2019 10:55 AM CDT [facility] Blood Collection / Unknown 12/04/2019 10:17 AM CDT 12/04/2019 10:[address] [facility] [employer] LABORATORY SERVICES - [facility] KIMO - 12/04/2019 10:55 AM CDT TRIGLYCERIDES ? mg/dL Normal ?< 150 Borderline High ?150 - 199 High ? 200 - 499 Very High ? >= 500 Based on AHA/NCEP Guidelines. Alize Arteaga MD CHEMISTRY ORDER OVSALDO [facility] LABORATORY SERVICES - [facility] CLIA# [id number] [address] [facility] [place] [place] [id number] * (ABNORMAL) CBC WITHOUT DIFFERENTIAL (12/04/2019 10:16 AM CDT) WBC 12.2(H) 4.0 - 9.8 K/uL 12/04/2019 10:21 AM CDT [facility] LABORATORY SERVICES - [facility] RBC 4.57 3.90 - 4.90 M/uL 12/04/2019 10:21 AM CDT [facility] LABORATORY SERVICES - [facility] HEMOGLOBIN 13.6 11.8 - 14.8 g/dL 12/04/2019 10:21 AM [facility] [employer] LABORATORY SERVICES - [facility] HEMATOCRIT 41.4 35.5 - 44.0 % 12/04/2019 10:21 AM CDT [facility] LABORATORY SERVICES - . [facility] MCV 90.6 82.0 - 99.0 fL 12/04/2019 10:21 AM CDT [email or web address] LABORATORY SERVICES - [facility] MCH 29.8 27.2 - 32.6 pg 12/04/2019 10:21 AM CDT [email or web address] LABORATORY SERVICES - . [facility] MCHC 32.9 31.5 - 35.5 g/dL 12/04/2019 10:21 AM CDT [employer] [facility] LABORATORY SERVICES - [facility] PLATELETS 256 140 - 350 K/uL 12/04/2019 10:21 AM CDT [email or web address] LABORATORY SERVICES - . [facility] MPV 9.4 9.3 - 12.4 fL 12/04/2019 10:21 AM CDT [facility] LABORATORY SERVICES - [facility] RDW 14.0 11.5 - 14.5 % 12/04/2019 10:21 AM CDT [facility] LABORATORY SERVICES - [facility] RDW-STDEV 46.4 37.1 - 48.7 fL 12/04/2019 10:21 AM CDT [facility] LABORATORY SERVICES - [facility] Blood Collection / Unknown 12/04/2019 10:16 AM CDT 12/04/2019 10:18 AM CDT Alize Arteaga MD HEMATOLOGY YONI SERRANO [facility] LABORATORY SERVICES - [facility] CLIA# [id number] [address] [place] [address] documented in this encounter Visit Diagnoses Diagnosis Hypertriglyceridemia- Primary Pure hyperglyceridemia documented in this encounter Administered Medications Inactive Administered Medications - up to 3 most recent administrations Medication Order MAR Action Action Date Dose Rate Site calcium GLUCONATE 2,000 mg in sodium chloride 0.9% 120 mL IVPB 2,000 mg, IV, INTRA-PROCEDURE ONCE, 1 dose, Starting on Sat12/04/19 at 1000, Until Sat12/04/19 at 1124, Routine New Bag 12/04/2019 10:24 AM CDT 2,000 mg 135 mL/hr heparin, porcine (pf) 10 unit/mL IV syringe 20 Units 20 Units, IV, POST-PROCEDURE ONCE, 1 dose, Starting on Sat12/04/19 at 1000, Until Sat12/04/19 at 1114, Routine, PLEASE TUBE TO STATION 516, BLOOD BANK Given 12/04/2019 11:14 AM CDT 20 Units heparin, porcine lock flush (pf) 100 unit/mL injection 500 Units 500 Units, IV, POST-PROCEDURE ONCE, 1 dose, Starting on Sat12/04/19 at 1000, Until Sat12/04/19 at 1000, Routine, Please tube to station 516, blood bank Given 12/04/2019 10:00 AM CDT 500 Units heparin, porcine lock flush (pf) 100 unit/mL injection 500 Units 500 Units, IV, POST-PROCEDURE ONCE, 1 dose, Starting on Sat12/04/19 at 1000, Until 12/04/19 at 1115, Routine, PLEASE TUBE TO STATION 516, BLOOD BANK Given 12/04/2019 11:15 AM CDT 500 Units documented in this encounter Care Teams Sociology Professor Relationship Specialty Start Date End Date Guerrero Middleton PA-C PCP - General Physician Shop Mechanic Helper 02/13/18 documented as of this encounter
--- OUTSIDE RECORDS SUMMARY | 2024-05-03 20:42 | XMS_ITS | Encounter Summary ---
Author Organization [facility] Address [address] [place] [address] Care Team Providers Care Manager Rental Name Role Phone Guerrero Middleton PA-C Primary Care Provide r Reason for Visit * Reason Onset Date Comments Medication Refill 01/15/2020 Encounter Details Date Type Department Care Team (Late st Contact Info) Description 01/15/2020 Refill [facility] Endocrinology [address] [place] [address] Prudence Gates MD [address] [place] [address] Social History Tobacco Use Types [...] often do you attend chur ch or pentecostalism services? Never 08/21/2018 Do you belong to any clubs o r organizations such as confucianism groups, unions, fraternal or athletic groups, or [...] Description 09/14/2024 3:00 PM CDT Office Visit [facility] Heart and Vascular - [place] [address] [address] [place] [phone] Marlys Mayer MD [address] [place] [address] documented as of this encounter Visit Diagnoses Not on filedocumented in this encounter Care Teams Manager Rental Relationship Specialty Start Date End Date Guerrero Middleton PA-C PCP - General Physician S[employer] Research & Ebusiness Operations 02/13/18 documented as of this encounter
--- OUTSIDE RECORDS SUMMARY | 2024-05-03 20:42 | XMS_ITS | Encounter Summary ---
Author Organization [facility] Address [address] [place] [address] Care Team Providers Care Farmworker Bulbs Name Role Phone Guerrero Middleton PA-C Primary Care Provide r Encounter Details Date Type Department Care Team (Latest Contact Info) Description 06/24/2019 9:38 AM FRAMEMAN - 06/24/2019 11:59 PM [facility] Hospital Encounter [facility] Blood Bank Donor Center [facility] [address] [place] [address] Alize Arteaga MD NO ADDRESS ON FILE [...] Sign Reading Time Taken Comments Blood Pressure 110/74 06/24/2019 10:30 AM FRAMEMAN Pulse 94 06/24/2019 10:30 AM FRAMEMAN Temperature 37 ??C (98.6 ??F) 06/24/2019 10:30 AM FRAMEMAN Respiratory Rate - - Oxygen Saturation - [...] 1 Tablet (10 mg) by mouth daily behavioral health counselor. 30 Tablet 5 04/08/2019 10/12/2019 levothyroxine 200 [...] Progress Notes * Rosales Tapia, RN - 06/24/2019 11:32 AM CST Left and right Bard power flow ports accessed, flushed with 20 ml saline and locked with heparin following protocol. Labs drawn from right bard port CBC/Triglyceride. Triglyceride 405. Vitals taken. No procedure today per Dr. Arteaga. Gauze + occlusive dressing applied to right and left chest ports. No bleeding noted. Instructions given and next appointment scheduled. Pt idalia in stable condition. EMAN documented in this encounter Plan of Treatment Upcoming Encounters Date Type Department Care Team (Late st Contact Info) Description 09/14/2024 3:00 PM CDT Office Visit [facility] Heart and Vascular - [facility] [address] [place] [address] Marlys Mayer MD [address] [place] [address] documented as of this encounter Procedures Procedure Name Priority Date/Time Associated Diagnosis Comments CBC WITH DIFFERENTIAL Routine 06/24/2019 9:59 AM FRAMEMAN Hypertriglyceridemi a TRIGLYCERIDE Routine 06/24/2019 9:59 AM FRAMEMAN Hypertriglyceridemi a documented in this encounter Results * (ABNORMAL) CBC WITH DIFFERENTIAL (06/24/2019 9:59 AM FRAMEMAN) WBC 11.0(H) 4.0 - 9.8 K/uL 06/24/2019 10:05 AM FRAMEMAN [employer] [facility] RBC 5.32(H) 3.90 - 4.90 M/uL 06/24/2019 10:05 AM [facility] [employer] [facility] [facility] HEMOGLOBIN 15.5(H) 11.8 - 14.8 g/dL 06/24/2019 10:05 AM [facility]AN [employer] [facility] [facility] HEMATOCRIT 47.5(H) 35.5 - 44.0 % 06/24/2019 10:05 AM [facility] [employer] [facility] [facility] MCV 89.3 82.0 - 99.0 fL 06/24/2019 10:05 AM [facility]AN [employer] [facility] [facility] MCH 29.1 27.2 - 32.6 pg 06/24/2019 10:05 AM [facility] [employer] [facility] MCHC 32.6 31.5 - 35.5 g/dL 06/24/2019 10:05 AM [facility] [employer] [facility] RDW 13.9 11.5 - 14.5 % 06/24/2019 10:05 AM [facility] [employer] [facility] RDW-STDEV 45.3 37.1 - 48.7 fL 06/24/2019 10:05 AM [facility] [employer] [facility] PLATELETS 272 140 - 350 K/uL 06/24/2019 10:05 AM [facility] [employer] [facility] MPV 9.3 9.3 - 12.4 fL 06/24/2019 10:05 AM [facility] [employer] [facility] NEUTROPHILS 76 % 06/24/2019 10:05 AM [facility] [employer] [facility] LYMPHOCYTES 17 % 06/24/2019 10:05 AM [facility] [employer] [facility] KIMO MONOCYTES 6 % 06/24/2019 10:05 AM [facility] [employer] [facility] KIMO EOSINOPHILS 1 % 06/24/2019 10:05 AM [facility] [employer] [facility] BASOPHILS 0 % 06/24/2019 10:05 AM [facility] [employer] [facility] IMMATURE GRANULOCYTES 1 % 06/24/2019 10:05 AM FR[facility]AN [employer] [facility] Comment:IG (Immature Granulo cyte) count includes Metamyelocytes, Myelocytes, and Promyelocytes NEUTROPHIL ABSOLUTE 8.36(H) 1.90 - 7.00 K/uL 06/24/2019 10:05 AM FRAMEMAN [employer] [facility] LYMPHOCYTE ABSOLUTE 1.81 0.70 - 4.50 K/uL 06/24/2019 10:05 AM [facility] [employer] [facility] MONOCYTE ABSOLUTE 0.63 0.10 - 1.30 K/uL 06/24/2019 10:05 AM FR[facility]AN [employer] [facility] EOSINOPHIL ABSOLUTE 0.08 0.00 - 0.70 K/uL 06/24/2019 10:05 AM [employer] [facility] BASOPHILS ABSOLUTE 0.04 0.00 - 0.20 K/uL 06/24/2019 10:05 AM FR[facility]AN [employer] [facility] IMMATURE GRANULOCYTES ABSOLUTE 0.06(H) 0.00 - 0.03 K/uL 06/24/2019 10:05 AM [facility] [employer] [facility] Blood Venipuncture / Unknown 06/24/2019 9:59 AM [facility] 06/24/2019 10:00 AM FRAMEMAN Alize Arteaga MD HEMATOLOGY ORDE RABLES Performing Organization Address [facility]/ZIP Co de Phone Number [facility]# [id number] [address] [place] [address] * (ABNORMAL) TRIGLYCERIDE (06/24/2019 9:59 AM FRAMEMAN) TRIGLYCERIDE 405(H) <150 mg/dL 06/24/2019 10:32 AM FRAMEMAN [facility] [employer] Surve[employer] [facility] Blood Venipuncture / Unknown 06/24/2019 9:59 AM FRAMEMAN 06/24/2019 10:00 AM FRAMEMAN Narrative [facility] Eyewitness Surveillance [facility] - 06/24/2019 10:32 AM FRAMEMAN TRIGLYCERIDES ? mg/dL Normal ?< 150 Borderline High ?150 - 199 High ? 200 - 499 Very High ? >= 500 Based on AHA/NCEP Guidelines. Alize Arteaga MD CHEMISTRY ORDER OSVALDO Performing Organization Address [facility] Co de Phone Number [facility]# [id number] [address] [place] [address] documented in this encounter Visit Diagnoses Diagnosis Hypertriglyceridemia- Primary Pure hyperglyceridemia documented in this encounter Administered Medications Inactive Administered Medications - up to 3 most recent administrations Medication Order MAR Action Action Date Dose Rate Site heparin, porcine lock flush (pf) 100 unit/mL injection 500 Units 500 Units, IV, POST-PROCEDURE ONCE, 1 dose, Starting on Sat06/24/19 at 1000, Until Sat06/24/19 at 1045, Routine, Please tube to 516, thanks! Given 06/24/2019 10:45 AM FRAMEMAN 500 Units heparin, porcine lock flush (pf) 100 unit/mL injection 500 Units 500 Units, IV, POST-PROCEDURE ONCE, 1 dose, Starting on Sat06/24/19 at 1000, Until Sat06/24/19 at 1000, Routine, Please tube to 516, thanks! Given 06/24/2019 10:00 AM FRAMEMAN 500 Units documented in this encounter Care Teams Farmworker Bulbs Relationship Specialty Start Date End Date Guerrero Middleton PA-C PCP - General Physician Biostatistics Director 02/13/18 documented as of this encounter
--- OUTSIDE RECORDS SUMMARY | 2024-05-03 20:42 | XMS_ITS | Encounter Summary ---
Author Organization [facility] Address [address] [place] [address] Care Team Providers Care Aircraft Lay Out Worker Name Role Phone Guerrero Middleton PA-C Primary Care Provide r Encounter Details Date Type Department Care Team (Latest Contact Info) Description 12/30/2019 10:00 AM CDT - 12/30/2019 11:59 PM CDT Hospital Encounter [facility] Donor Services [address] [phone] Alize Arteaga MD NO ADDRESS ON FILE [...] often do you attend chur ch or anabaptist services? Never 08/21/2018 Do you [...] Sign Reading Time Taken Comments Blood Pressure 122/70 12/30/2019 12:02 PM CDT Pulse 86 12/30/2019 12:02 PM CDT Temperature 37 ??C (98.6 ??F) 12/30/2019 12:02 PM CDT Respiratory Rate 18 12/30/2019 12:02 PM CDT Oxygen Saturation - - [...] Progress Notes * Puja Paz RN - 12/30/2019 10:00 AM CDT Plasma exchange completed using R/L BARD ports. 1.0 volume, 100% fluid balance using 5% albumin as replacement fluid. Pt tolerated the procedure well. Pre- triglyceride resulted at 235. Post triglyceride level drawn. Next procedure scheduled for 01/27/2020. * Alize Arteaga MD - 12/30/2019 10:00 AM CDT CC: ??44??yo female undergoing prophylaxis for??hypertriglyceridemic pancreatitis in the setting of?recurrent necrotizing pancreatitis requires??plasma exchange. ?? Interval history:??Patient??feeling well; not having abdominal pain or nausea. Patient reports her pants are feeling looser, but she still isn't losing weight. ??She continues on the Optiva low fat diet, which is going well. ?? PMH: ??Hypertriglyceridemia (associated with prior [...] 12.2, hemoglobin 13.6, hematocrit 41.4, platelets 256 12/30/2019 preprocedure triglyceride 235, post procedure triglyceride 141 ?? A&P: 1. 44??yo female with??recurrent??hypertriglyceridemic pancreatitis [...] the procedure. ?? Alize Arteaga MD, PhD Bobbin Collector, therapeutic apheresis service [phone] ?? Procedure??notes:?L and??R bard ports??used for procedure. ??Patient tolerated procedure well. Patient to return in??~28 days. I called the patient with her postprocedure triglyceride result of 141. This is the first time her triglycerides have been within the reference range since she can remember. She was very happy to have the news. documented in this encounter Plan of Treatment Upcoming Encounters Date Type Department Care Team (Late st Contact Info) Description 09/14/2024 3:00 PM CDT Office Visit [facility] Heart and Vascular - [place] [address] [place] [address] Marlys Mayer MD [address] [place] [address] documented as of this encounter Procedures Procedure Name Priority Date/Time Associated Diagnosis Comments TRIGLYCERIDE Routine 12/30/2019 10:49 AM CDT Hypertriglyceridemia documented in this encounter Results * (ABNORMAL) TRIGLYCERIDE (12/30/2019 10:49 AM CDT) TRIGLYCERIDE 235(H) <150 mg/dL 12/30/2019 11:36 AM CDT [facility] Blood Venipuncture / Unknown 12/30/2019 10:49 AM CDT 12/30/2019 10:53 AM CDT Narrative [facility] - 12/30/2019 11:36 AM CDT TRIGLYCERIDES ? mg/dL Normal ?< 150 Borderline High ?150 - 199 High ? 200 - 499 Very High ? >= 500 Based on AHA/NCEP Guidelines. Alize Arteaga MD CHEMISTRY ORDER OSVALDO [id number] [address] [place], [place] [id number] documented in this encounter Visit Diagnoses Diagnosis Hypertriglyceridemia- Primary Pure hyperglyceridemia documented in this encounter Administered Medications Inactive Administered Medications - up to 3 most recent administrations Medication Order MAR Action Action Date Dose Rate Site calcium GLUCONATE 2,000 mg in sodium chloride 0.9% 120 mL IVPB 2,000 mg, IV, INTRA-PROCEDURE ONCE, 1 dose, Starting on Sat12/30/19 at 1000, Until Sat12/30/19 at 1149, Routine New Bag 12/30/2019 10:49 AM CDT 2,000 mg 135 mL/hr heparin, porcine (pf) 10 unit/mL IV syringe 20 Units 20 Units, IV, POST-PROCEDURE ONCE, 1 dose, Starting on Sat12/30/19 at 1000, Until Sat12/30/19 at 1153, Routine Given 12/30/2019 11:53 AM CDT 20 Units heparin, porcine lock flush (pf) 100 unit/mL injection 500 Units 500 Units, IV, POST-PROCEDURE ONCE, 1 dose, Starting on Sat12/30/19 at 1000, Until Sat12/30/19 at 1153, Routine Given 12/30/2019 11:53 AM CDT 500 Units heparin, porcine lock flush (pf) 100 unit/mL injection 500 Units 500 Units, IV, POST-PROCEDURE ONCE, 1 dose, Starting on Sat12/30/19 at 1000, Until Sat12/30/19 at 1153, Routine Given 12/30/2019 11:53 AM CDT 500 Units documented in this encounter Care Teams Aircraft Lay Out Worker Relationship Specialty Start Date End Date Guerrero Middleton PA-C PCP - General Physician Commercial Litigation Associate 02/13/18 documented as of this encounter
--- OUTSIDE RECORDS SUMMARY | 2024-05-03 20:42 | XMS_ITS | Encounter Summary ---
Author Organization [facility] Address [address] [place] [address] Care Team Providers Care Booking Prizer Name Role Phone Guerrero Middleton PA-C Primary Care Provide r Encounter Details Date Type Department Care Team (Latest Contact Info) Description 12/16/2019 9:45 AM CDT - 12/16/2019 11:59 PM CDT Hospital Encounter [facility] Tobacco Cessation [address] [place] [address] [address] [address] Discharge Disposition: Home or Self Care [...] any clubs o r organizations such as hindu groups, unions, fraternal or athletic groups, or [...] PM CDT documented as of this encounter Medications at Time of Discharge Medication Sig Dispensed Refills Start Date End Date traZODone (DESYREL) 100 mg tablet Take 100 mg by mouth daily at bedtime . levothyroxine 200 mcg tablet Take 200 mcg by mouth. 10/28/201809/25 metFORMIN (GLUCOPHAGE) 500 mg tablet Take 500 mg by mouth 2 times daily. 06/05/2018 09/26/2023 varenicline (Chantix) 0.5 mg Tablet Take 1 Tablet (0.5 mg) by mouth 2 times daily. 60 Tablet 12/14/2019 09/19/2023 empagliflozin (JARDIANCE) 25 mg tablet Take 1 tablet by mouth early in the morning. 90 Tablet 1 12/14/2019 12/22/2019 insulin glargine (LANTUS) 100 unit/mL injection 35 [...] 09/04/2012 05/05/2020 documented as of this encounter Plan of Treatment Upcoming Encounters Date Type Department Care Team (Late st Contact Info) Description 09/14/2024 3:00 PM CDT Office Visit [facility] Heart and Vascular - [facility] [address] [place] [id number] Marlys Mayer MD [address] [place] [address] documented as of this encounter Visit Diagnoses Not on filedocumented in this encounter Care Teams Booking Prizer Relationship Specialty Start Date End Date Guerrero Middleton PA-C PCP - General Physician Associate Partner 02/13/18 documented as of this encounter
--- OUTSIDE RECORDS SUMMARY | 2024-05-03 20:42 | XMS_ITS | Encounter Summary ---
Author Organization [facility] Address [address] [place] [address] Care Team Providers Care Sample Tester Grinder Name Role Phone Guerrero Middleton PA-C Primary Care Provide r Encounter Details Date Type Department Care Team (Latest Contact Info) Description 11/04/2019 9:43 AM CDT - 11/04/2019 11:59 PM CDT Hospital Encounter [facility] Donor Services [address] [phone] Blake Rudd MD NO ADDRESS ON FILE Discharge Disposition: [...] Sign Reading Time Taken Comments Blood Pressure 105/67 11/04/2019 11:29 AM CDT Pulse 92 11/04/2019 11:29 AM CDT Temperature 37.2 ??C (99 ??F) 11/04/2019 9:50 AM CDT Respiratory Rate 18 11/04/2019 11:29 AM CDT Oxygen Saturation - - Inhaled [...] Progress Notes * Puja Paz, CLAU - 11/04/2019 10:00 AM CDT Plasma exchange completed using R/L bard ports. 1.0 Volume, 100% fluid balance using 5% albumin as replacement fluid. Pt tolerated the procedure well. Post procedure triglyceride obtained per Dr. Arteaga's orders. * Alize Arteaga MD - 11/04/2019 10:00 AM CDT CC: ??43??yo female undergoing prophylaxis for??hypertriglyceridemic pancreatitis in the setting of?recurrent necrotizing pancreatitis requires??plasma exchange. ?? Interval history:??Patient??feeling well. She is getting a lot of physical activity. Optiva low fatdiet going well. 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 ?? PMH: ??Hypertriglyceridemia (associated with prior episodes of pancreatitis, received inpatient plasma exchanges 04/2018, 07/2018 and 09/2018, started on prophylactic exchanges October 2018, one port removed from R chest and new port placed in L chest 02/18/2019), DM, anxiety, GERG, HLD, hypothyroidism, PCOS ?? Meds: as per ReferMe. ?? Exam: ?? General Appearance: - Well nourished - No acute distress Eyes: - No scleral icterus Neck: - No masses, symmetrical Cardiac: - No lower extremity edema Skin: - Inspection: No rashes evident - R and L chest port sites well healed with pink scar Respiratory: - Unlabored breathing Neuro: - Alert and Oriented x 3 - Normal Affect ?Labs: 10/07/19: WBC??9.5, Hgb 14.0, Hct??40.9, Plt??212 11/04/19: triglyceride??696??(preprocedure), 277 (post) ?? A&P: 1. 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 Patient has??recurrent necrotizing pancreatitis??and was??initiated on prophylactic plasmaexchange for prevention of hypertriglyceridemic pancreatitis starting 11/12/18??in consultation withDrs. Mcleod.??(ASFA category III indication for apheresis). 2. ??We will perform a 1.0 volume plasma exchange with all albumin replacement with 100% fluid balance with 2 g calcium gluconate over the procedure. ??Goal triglycerides <500??per ASFA.? I have seen and examined the patient, reviewed pertinent notes and records, and remained immediately available throughout the procedure. ?? Alize Arteaga MD, PhD Director Client, therapeutic apheresis service [phone] ?? Procedure??notes:?L and??R bard ports??used for procedure. ??Patient tolerated procedure well. Patient to return in ~28 days. documented in this encounter Plan of Treatment Upcoming Encounters Date Type Department Care Team (Late st Contact Info) Description 09/14/2024 3:00 PM CDT Office Visit [facility] Heart and Vascular - [facility] [address] [address] [address] [place] [address] Marlys Mayer MD [address] [place] [address] documented as of this encounter Procedures Procedure Name Priority Date/Time Associated Diagnosis Comments TRIGLYCERIDE Stat 11/04/2019 9:52 AM CDT Mixed hyperlipidemia documented in this encounter Results * (ABNORMAL) TRIGLYCERIDE (11/04/2019 9:52 AM CDT) TRIGLYCERIDE 696(H) <150 mg/dL 11/04/2019 10:25 AM CDT [facility] Blood Collection / Unknown 11/04/2019 9:52 AM CDT 11/04/2019 9:56 AM CDT Narrative [facility] - 11/04/2019 10:25 AM CDT TRIGLYCERIDES ? mg/dL Normal ?< 150 Borderline High ?150 - 199 High ? 200 - 499 Very High ? >= 500 Based on AHA/NCEP Guidelines. Alize Arteaga MD CHEMISTRY ORDER OSVALDO [facility] LABORATORY SERVICES [facility]# [id number] [address] [place] [address] documented in this encounter Visit Diagnoses Diagnosis Mixed hyperlipidemia- Primary documented in this encounter Administered Medications Inactive Administered Medications - up to 3 most recent administrations Medication Order MAR Action Action Date Dose Rate Site calcium GLUCONATE 2,000 mg in sodium chloride 0.9% 120 mL IVPB 2,000 mg, IV, PRE-PROCEDURE ONCE, 1 dose, Starting on Sat11/04/19 at 1000, Until Sat11/04/19 at 1125, Routine New Bag 11/04/2019 10:25 AM CDT 2,000 mg 135 mL/hr heparin, porcine (pf) 10 unit/mL IV syringe 20 Units 20 Units, IV, POST-PROCEDURE ONCE, 1 dose, Starting on Sat11/04/19 at 1000, Until Sat11/04/19 at 1126, Routine Given 11/04/2019 11:26 AM CDT 20 Units heparin, porcine lock flush (pf) 100 unit/mL injection 500 Units 500 Units, IV, POST-PROCEDURE ONCE, 1 dose, Starting on Sat11/04/19 at 1000, Until Sat11/04/19 at 1145, Routine Given 11/04/2019 11:45 AM CDT 500 Units heparin, porcine lock flush (pf) 100 unit/mL injection 500 Units 500 Units, IV, POST-PROCEDURE ONCE, 1 dose, Starting on Sat11/04/19 at 1000, Until Sat11/04/19 at 1126, Routine Given 11/04/2019 11:26 AM CDT 500 Units documented in this encounter Care Teams Sample Tester Grinder Relationship Specialty Start Date End Date Guerrero Middleton PA-C PCP - General Physician Manager Drilling 02/13/18 documented as of this encounter
--- OUTSIDE RECORDS SUMMARY | 2024-05-03 20:42 | XMS_ITS | Encounter Summary ---
Author Organization [facility] Address [address] Orozco: Epic Prelude ADT [place] [address] Care Team Providers Care Project Officer Name Role Phone Guerrero Middleton PA-C Primary Care Provide r Encounter Details Date Type Department Care Team (Latest Contact Info) Description 02/02/2020 Travel Social History Tobacco Use Types Packs/Day [...] week 08/21/2018 How often do you attend [facility] or religion services? Never 08/21/2018 Do [...] have Coronavirus / COVID-19? No / Unsure 02/02/2020 3:56 PM CDT documented as of this encounter Plan of Treatment Upcoming Encounters Date Type Department Care Team (Late st Contact Info) Description 09/14/2024 3:00 PM CDT Office Visit [facility] [address] [place] [address] Marlys Mayer MD [address] [place] [address] documented as of this encounter Visit Diagnoses Not on filedocumented in this encounter Care Teams Project Officer Relationship Specialty Start Date End Date Guerrero Middleton PA-C PCP - General Physician Sericulturist 02/13/18 documented as of this encounter
--- OUTSIDE RECORDS SUMMARY | 2024-05-03 20:42 | XMS_ITS | Encounter Summary ---
Author Organization [facility] Address [address] [place] [address] Care Team Providers Care Internal Control Specialist Name Role Phone Guerrero Middleton PA-C Primary Care Provide r Reason for Visit * Auth/Cert Specialty Diagnoses / Procedures Referred By Contac t Referred To Contact General Surgery Diagnoses Hypertriglyceridemia Procedures IR VENOUS NECK [facility] Int Unit [address] [address] Referral ID Status Reason Start Date Expiration Date Visits Re quested Visits Authorized [id number] 1 1 Encounter Details Date Type Department Care Team (Latest Contact Info) Description 05/11/2019 2:20 PM BOILER TENDERS SUPERVISOR - 05/11/2019 11:59 PM [facility] Hospital Encounter [facility] Blood Bank Donor Center [address] [place] [address] Alize Arteaga MD NO ADDRESS ON FILE [...] How often do you attend chur or tenriism services? Never 08/21/2018 Do you [...] Sign Reading Time Taken Comments Blood Pressure 93/62 05/11/2019 3:30 PM BOILER TENDERS SUPERVISOR Pulse 78 05/11/2019 3:30 PM BOILER TENDERS SUPERVISOR Temperature 37 ??C (98.6 ??F) 05/11/2019 3:30 PM BOILER TENDERS SUPERVISOR Respiratory Rate 16 05/11/2019 3:30 PM BOILER TENDERS SUPERVISOR Oxygen Saturation - - Inhaled Oxygen Concentration [...] 1 Tablet (10 mg) by mouth daily food and nutrition teacher. 30 Tablet 5 04/08/2019 10/12/2019 levothyroxine [...] as of this encounter Progress Notes * Alize Arteaga MD - 05/11/2019 2:20 PM CST CC: ??43??yo female with with acute hypertriglyceridemic pancreatitis in the setting of ??recurrentnecrotizing pancreatitis requires plasma exchange. ?? HPI: Patient had increasing abdominal pain with nausea and vomiting, consistent with prior episodesof pancreatitis and presented to ED on 04/11/19. Was admitted for further management. ?? PMH: ??Hypertriglyceridemia (associated with prior episodes [...] Oriented x 3 - Normal Affect ?Labs: 04/24/19: WBC??8.4, Hgb 12.0, Hct 36.4, Plt 263 04/13/19: triglyceride??257??(preprocedure) ?? A&P: 1. 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 Patient has recurrent necrotizing pancreatitis and was initiated on prophylactic plasma exchange for prevention of hypertriglyceridemic pancreatitis starting 11/12/18 in consultation with Drs. Lalo childress and Moreno.??(ASFA category III indication for apheresis). 2. ??We will perform a 1.0 volume plasma exchange with all albumin replacement with 100% fluid balance with 2 g calcium gluconate over the procedure. Goal triglycerides <200 per ASFA.? I have seen and examined the patient, reviewed pertinent notes and records, and remained immediately available throughout the procedure. ?? Alize Arteaga MD, PhD Matrix Worker, therapeutic apheresis service [phone] ?? Procedure??notes:?L and R bard ports used for procedure. ??Patient tolerated procedure well. ER TENDERS SUPERVISOR * Rosales Tapia, RN - 05/11/2019 2:20 PM CST Plasma exchange completed using the right and left bard powerflow ports for access and return with albumin as replacement fluids for a 1.0 volume exchange. Pt tolerated procedure without issues. Ports locked with heparin (see MAR) and deaccessed with minimal bleeding. Occlusive dressing + gauze applied to both site. No bleeding noted at discharge. Pt left in stable condition. ER TENDERS SUPERVISOR documented in this encounter Plan of Treatment Upcoming Encounters Date Type Department Care Team (Late st Contact Info) Description 09/14/2024 3:00 PM CDT Office Visit [facility] Heart and Vascular - [facility] [address] [place] [address] Marlys Mayer MD [address] [place], [place] [id number] documented as of this encounter Procedures Procedure Name Priority Date/Time Associated Diagnosis Comments TRIGLYCERIDE Routine 05/11/2019 3:12 PM BOILER TENDERS SUPERVISOR Hypertriglyceridemia documented in this encounter Results * (ABNORMAL) TRIGLYCERIDE (05/11/2019 3:12 PM BOILER TENDERS SUPERVISOR) TRIGLYCERIDE 257(H) <150 mg/dL 05/11/2019 3:31 PM BOILER TENDERS SUPERVISOR [place] [facility] Blood Collection / Unknown 05/11/2019 3:12 PM BOILER TENDERS SUPERVISOR 05/11/2019 3:14 PM BOILER TENDERS SUPERVISOR Narrative [place] [facility] - 05/11/2019 3:31 PM BOILER TENDERS SUPERVISOR TRIGLYCERIDES ? mg/dL Normal ?< 150 Borderline High ?150 - 199 High ? 200 - 499 Very High ? >= 500 Based on AHA/NCEP Guidelines. Alize Arteaga MD CHEMISTRY ORDER [facility]# [id number] [address] [place] [address] documented in this encounter Visit Diagnoses Diagnosis Hypertriglyceridemia- Primary Pure hyperglyceridemia documented in this encounter Administered Medications Inactive Administered Medications - up to 3 most recent administrations Medication Order MAR Action Action Date Dose Rate Site calcium GLUCONATE 2,000 mg in sodium chloride 0.9% 120 mL IVPB 2,000 mg, IV, INTRA-PROCEDURE ONCE, 1 dose, Starting on Sat05/11/19 at 1430, Until Sat05/11/19 at 1520, Routine New Bag 05/11/2019 2:29 PM BOILER TENDERS SUPERVISOR 2,000 mg 240 mL/hr heparin injection 2,000 Units 2,000 Units, IV, ONE TIME ONLY, 1 dose, On Sat05/11/19 at 1500, Routine Given 05/11/2019 3:00 PM BOILER TENDERS SUPERVISOR 2,000 Units heparin injection 3,000 Units 3,000 Units, IV, ONE TIME ONLY, 1 dose, On Sat05/11/19 at 1500, Routine Given 05/11/2019 3:20 PM BOILER TENDERS SUPERVISOR 3,000 Units documented in this encounter Care Teams Internal Control Specialist Relationship Specialty Start Date End Date Guerrero Middleton PA-C PCP - General Physician Receiving Clerk 02/13/18 documented as of this encounter
--- OUTSIDE RECORDS SUMMARY | 2024-05-03 20:42 | XMS_ITS | Encounter Summary ---
Author Organization [facility] Address [address] Orozco: Epic Prelude ADT [place] [address] Care Team Providers Care Spring Inspector Name Role Phone Guerrero Middleton PA-C Primary Care Provide r Encounter Details Date Type Department Care Team (Latest Contact Info) Description 12/04/2019 Travel Social History Tobacco Use Types Packs/Day [...] week 08/21/2018 How often do you attend [facility] or adventist services? Never 08/21/2018 Do you belong to any clubs o r organizations such as anglican groups, unions, fraternal or athletic groups, or [...] [facility] [address] [place] [address] Marlys Mayer MD [address] [place] [address] documented as of this encounter Visit Diagnoses Not on filedocumented in this encounter Care Teams Spring Inspector Relationship Specialty Start Date End Date Guerrero Middleton PA-C PCP - General Physician Weatherization And Housing Inspector 02/13/18 documented as of this encounter
--- OUTSIDE RECORDS SUMMARY | 2024-05-03 20:42 | XMS_ITS | Encounter Summary ---
Author Organization [facility] Address [address] [place] [address] Care Team Providers Care Sport Intern Name Role Phone Guerrero Middleton PA-C Primary Care Provide r Encounter Details Date Type Department Care Team (Latest Contact Info) Description 10/07/2019 9:45 AM CDT - 10/07/2019 11:59 PM CDT Hospital Encounter [facility] Blood Bank Donor Center [address] [facility] [address] [place] [address] Alize Arteaga MD NO ADDRESS ON FILE [...] any clubs o r organizations such as oriental orthodox groups, unions, fraternal or athletic groups, [...] Sign Reading Time Taken Comments Blood Pressure 108/74 10/07/2019 11:19 AM CDT Pulse 81 10/07/2019 11:19 AM CDT Temperature 36.8 ??C (98.3 ??F) 10/07/2019 11:19 AM C DT Respiratory Rate 16 10/07/2019 11:19 AM CDT Oxygen Saturation - - Inhaled [...] 1 Tablet (10 mg) by 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 30 Tablet 5 04/08/2019 10/12/2019 levothyroxine 200 [...] Progress Notes * Rosales Tapia, RN - 10/07/2019 11:51 AM CDT Plasma exchange completed using the bard ports for access and return with 5% albumin as replacementfluids for 1.0 volume exchange. Pt accessed and deaccessed following protocol. Occlusive dressing with sterile gauze applied after, no active bleeding noted at site. Pt left ambulatory in stable condition. * Alize Arteaga MD - 10/07/2019 10:00 AM CDT CC: ??43??yo female undergoing prophylaxis for??hypertriglyceridemic pancreatitis in the setting of?recurrent necrotizing pancreatitis requires??plasma exchange. ?? Interval history:??Patient feeling well. She is getting a lot of physical activity doing yardwork. She is planning on starting a new very low fat diet next week. ?? PMH: ??Hypertriglyceridemia (associated with prior [...] ?Labs: 10/07/19: WBC??9.5, Hgb 14.0, Hct??40.9, Plt??212 10/07/19: triglyceride??1,148??(preprocedure) ?? A&P: 1. 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 Patient has??recurrent necrotizing pancreatitis??and was??initiated on prophylactic plasmaexchange for prevention of hypertriglyceridemic pancreatitis starting 11/12/18??in consultation withDrs. Mcleod.??(ASFA category III indication for apheresis). 2. ??We will perform a 1.0 volume plasma exchange with all albumin replacement with 100% fluid balance with 2 g calcium gluconate over the procedure. ??Goal triglycerides <1000??per ASFA.? I have seen and examined the patient, reviewed pertinent notes and records, and remained immediately available throughout the procedure. ?? Alize Arteaga MD, PhD [employer], therapeutic apheresis service [phone] ?? Procedure??notes:?L and??R bard ports??used for procedure. ??Patient tolerated procedure well. Patient to return in 28 days. documented in this encounter Plan of Treatment Upcoming Encounters Date Type Department Care Team (Late st Contact Info) Description 09/14/2024 3:00 PM CDT Office Visit [facility] [place] Heart [facility] V[facility] - [facility] [address] [place] [address] Marlys Mayer MD [address] [place] [address] documented as of this encounter Procedures Procedure Name Priority Date/Time Associated Diagnosis Comments CBC WITHOUT DIFFERENTIAL Routine 10/07/2019 10:07 AM CDT Hypertriglyceridemi a TRIGLYCERIDE Routine 10/07/2019 10:07 AM CDT Hypertriglyceridemi a documented in this encounter Results * (ABNORMAL) CBC WITHOUT DIFFERENTIAL (10/07/2019 10:07 AM CDT) WBC 9.5 4.0 - 9.8 K/uL 10/07/2019 10:13 AM CDT [facility] - [facility] RBC 4.68 3.90 - 4.90 M/uL 10/07/2019 10:13 AM CDT [facility] HEMOGLOBIN 14.0 11.8 - 14.8 g/dL 10/07/2019 10:13 AM CDT [facility] - [facility] HEMATOCRIT 40.9 35.5 - 44.0 % 10/07/2019 10:13 AM CDT [facility] - [facility] MCV 87.4 82.0 - 99.0 fL 10/07/2019 10:13 AM CDT [facility] - [facility] MCH 29.9 27.2 - 32.6 pg 10/07/2019 10:13 AM CDT [facility] - [facility] MCHC 34.2 31.5 - 35.5 g/dL 10/07/2019 10:13 AM T [facility] PLATELETS 212 140 - 350 K/uL 10/07/2019 10:13 AM CDT [facility] MPV 9.3 9.3 - 12.4 fL 10/07/2019 10:13 AM CDT [facility] hulu [facility] RDW 15.4(H) 11.5 - 14.5 % 10/07/2019 10:13 AM T [facility] - [facility] RDW-STDEV 49.1(H) 37.1 - 48.7 fL 10/07/2019 10:13 AM CDT [facility] Blood Collection / Unknown 10/07/2019 10:07 AM CDT 10/07/2019 10:09 AM CDT Alize Arteaga MD HEMATOLOGY [facility] Organization Address City/State/[facility] Co de Phone Number [facility] hulu [facility]# [id number] [address] [place] [address] * (ABNORMAL) TRIGLYCERIDE (10/07/2019 10:07 AM CDT) TRIGLYCERIDE 1,148(H) <150 mg/dL 10/07/2019 10:56 AM CDT [facility] hulu [facility] Blood Collection / Unknown 10/07/2019 10:07 AM CDT 10/07/2019 10:09 AM CDT Narrative [facility] - 10/07/2019 10:56 AM CDT TRIGLYCERIDES ? mg/dL Normal ?< 150 Borderline High ?150 - 199 High ? 200 - 499 Very High ? >= 500 Based on AHA/NCEP Guidelines. Alize Arteaga MD CHEMISTRY ORDER [facility]# [id number] [address] [place] [address] documented in this encounter Visit Diagnoses Diagnosis Hypertriglyceridemia- Primary Pure hyperglyceridemia documented in this encounter Administered Medications Inactive Administered Medications - up to 3 most recent administrations Medication Order MAR Action Action Date Dose Rate Site calcium GLUCONATE 2,000 mg in sodium chloride 0.9% 120 mL IVPB 2,000 mg, IV, INTRA-PROCEDURE ONCE, 1 dose, Starting on Sat10/07/19 at 0900, Until Sat10/07/19 at 1113, Routine New Bag 10/07/2019 10:18 AM CDT 2,000 mg 147.3 mL/hr heparin, porcine (pf) 10 unit/mL IV syringe 20 Units 20 Units, IV, POST-PROCEDURE ONCE, 1 dose, Starting on Sat10/07/19 at 1000, Until Sat10/07/19 at 1119, Routine, Please tube to station [id number], blood bank Given 10/07/2019 11:19 AM CDT 20 Units heparin, porcine lock flush (pf) 100 unit/mL injection 500 Units 500 Units, IV, POST-PROCEDURE ONCE, 1 dose, Starting on Sat10/07/19 at 1000, Until Sat10/07/19 at 1118, Routine, Please tube to station 516, blood bank Given 10/07/2019 11:18 AM CDT 500 Units heparin, porcine lock flush (pf) 100 unit/mL injection 500 Units 500 Units, IV, POST-PROCEDURE ONCE, 1 dose, Starting on Sat10/07/19 at 1000, Until Sat10/07/19 at 1118, Routine, Please tube to station 516, blood bank Given 10/07/2019 11:18 AM CDT 500 Units documented in this encounter Care Teams Sport Intern Relationship Specialty Start Date End Date Guerrero Middleton PA-C PCP - General Physician Special Warfare Combatant Crewman 02/13/18 documented as of this encounter
--- OUTSIDE RECORDS SUMMARY | 2024-05-03 20:43 | XMS_ITS | Encounter Summary ---
Author Organization [facility] Address [address] [place] [address] Care Team Providers Care Personal Property Assessor Name Role Phone Guerrero Middleton PA-C Primary Care Provide r Encounter Details Date Type Department Care Team (Latest Contact Info) Description 01/14/2019 9:30 AM CDT - 01/14/2019 11:59 PM T Hospital Encounter [facility] Blood Bank Donor Center S [facility] [address] [place] [address] Alize Arteaga MD NO ADDRESS ON FILE [...] Sign Reading Time Taken Comments Blood Pressure 115/75 01/14/2019 11:06 AM CDT Pulse 98 01/14/2019 11:06 AM CDT Temperature 36.7 ??C (98 ??F) 01/14/2019 11:06 AM CDT Respiratory Rate 16 01/14/2019 11:06 AM CDT Oxygen Saturation - - Inhaled [...] times daily. 06/05/2018 09/26/2023 levothyroxine 200 mcg tablet Take 1 Tablet by mouth daily without food in the morning 30 minutes before eating anything. 30 Tablet 5 10/28/2018 05/11/2020 niacin SR 500 mg capsule Take 1 Capsule (500 mg) by mouth daily at bedtime. 30 Capsule 5 10/28/2018 02/04/2019 HYDROcodone-acetamin ophen (NORCO) 5-325 mg tabletIndications:Ge neralized abdominal pain,Hypertriglyceri demia Take 1 Tablet by mouth every 6 hours as needed for Pain, Severe. Max Daily Amount: 4 Tablets 10 Tablet 08/24/2018 02/04/2019 omega-3 fatty acids-fish oil 300-1,000 mg Capsule Take 2 Capsules by mouth 2 times daily. 02/04/2019 metFORMIN (GLUCOPHAGE) 500 mg tablet Take 2 [...] by mouth 2 times daily . 09/26/2023 spironolactone (ALDACTONE) 25 mg tablet Take 25 mg by mouth daily. 02/04/2019 rosuvastatin (CRESTOR) 20 mg tablet Take 20 [...] Progress Notes * Daniel Whitehead RN - 01/14/2019 10:00 AM CDT Plasma exchange completed today using right BARD port for draw and return. Medial port used for return and distal for draw. 1.0 volume, 100% fluid balance using 5% Albumin as replacement fluid completed. 2 grams calcium gluconate given intra procedure. Patient tolerated procedure well. Pre and post triglyceride levels obtained and sent to lab. Next procedure scheduled for 01/15/2019. * Alize Arteaga MD - 01/14/2019 10:00 AM CDT CC: ??43??yo female with hypertriglyceridemia associated??with??recurrent necrotizing pancreatitis initiated on prophylactic plasma exchange for prevention of hypertriglyceridemic pancreatitis starting 11/12/18.??(ASFA category III indication for apheresis). ?? Interval history: ??Has been less consistent with diet recently as traveling a bit with her children for their band activities. Feeling worse lately. Having abdominal pain, nausea, facial fullness, and migraines- all of which she associates with episodes of hypertriglyceridemic pancreatitis. ?? PMH: ??Hypertriglyceridemia (associated with prior episodes of pancreatitis, received inpatient plasma exchanges 04/2018, 07/2018 and 09/2018, started on prophylactic exchanges October 2018), DM, anxiety, GERG, HLD, hypothyroidism, PCOS ?? Meds: as per EPIC. ?? Exam: ?? General Appearance: - Well nourished - No acute distress Eyes: - No scleral icterus Neck: - No masses, symmetrical Cardiac: - No lower extremity edema Skin: - Inspection: No rashes evident -Port accessed in R chest at time of my exam.??No erythema, induration or drainage observed??at port site. Respiratory: - Unlabored breathing Neuro: - Alert and Oriented x 3 - Normal Affect ?? Labs:??triglycerides??2,373 (pre), 884 (post) ?? A&P: 1. 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 2. ??We will perform a 1.0 volume plasma exchange with all albumin replacement with 100% fluid balance with 2 g calcium gluconate over the procedure. 3.??Per Drs. Rudd and Moreno,??goal??triglycerides <500 initially, although my literature review suggests optimal results with triglycerides <100-200. We will obtain triglycerides prior to each procedure. ??We may need to modify plan based on triglyceride results. 4. Patient complained port discomfort. ??Evaluated by IR at end of November. Plan is for three monthsof watchful waiting. To revisit at end of February 2019. 6. ??Given markedly elevated triglycerides and patient discomfort, plan for next PLEX tomorrow. ?? I have seen and examined the patient, reviewed pertinent notes and records. ?? Alize Arteaga MD, PhD Passenger Rate Clerk, therapeutic apheresis service [phone] ?? Procedure #7 notes: patient tolerated procedure well. documented in this encounter Plan of Treatment Upcoming Encounters Date Type Department Care Team (Late st Contact Info) Description 09/14/2024 3:00 PM CDT Office [facility] [address] [place] [address] Marlys Mayer MD [address] [place], [place] [id number] documented as of this encounter Procedures Procedure Name Priority Date/Time Associated Diagnosis Comments TRIGLYCERIDE Routine 01/14/2019 11:25 AM CDT Metabolic syndrome History of gestational diabetes Family history of diabetes mellitus Family history of early CAD PCOS (polycystic ovarian syndrome) Hypothyroidism, unspecified type Chylomicronemia syndrome Hypertriglyceridemia Nausea vomiting and diarrhea Depression with anxiety Tobacco use Type 2 diabetes mellitus without complication, with long-term current use of insulin Hyponatremia Gastroesophageal reflux disease, esophagitis presence not specified Epigastric pain History of plasmapheresis Mixed hyperlipidemia History of pancreatitis Left upper quadrant pain Acquired hypothyroidism Recurrent pancreatitis TRIGLYCERIDE Routine 01/14/2019 9:48 AM CDT Metabolic syndrome History of gestational diabetes Family history of diabetes mellitus Family history of early CAD PCOS (polycystic ovarian syndrome) Hypothyroidism, unspecified type Chylomicronemia syndrome Hypertriglyceridemia Nausea vomiting and diarrhea Depression with anxiety Tobacco use Type 2 diabetes mellitus without complication, with long-term current use of insulin Hyponatremia Gastroesophageal reflux disease, esophagitis presence not specified Epigastric pain History of plasmapheresis Mixed hyperlipidemia History of pancreatitis Left upper quadrant pain Acquired hypothyroidism Recurrent pancreatitis documented in this encounter Results * (ABNORMAL) TRIGLYCERIDE (01/14/2019 11:25 AM CDT) TRIGLYCERIDE 884(H) <150 mg/dL 01/14/2019 12:14 PM CDT [facility] Dick or Bro [facility] Blood Collection / Unknown 01/14/2019 11:25 AM CDT 01/14/2019 11:25 AM CDT [facility] Dick or Bro [facility] - 01/14/2019 12:14 PM CDT TRIGLYCERIDES ? mg/dL Normal ?< 150 Borderline High ?150 - 199 High ? 200 - 499 Very High ? >= 500 Based on AHA/NCEP Guidelines. Alize Arteaga MD CHEMISTRY ORDER [facility] Dick or Bro [facility]# [id number] [address] [place] [address] * (ABNORMAL) TRIGLYCERIDE (01/14/2019 9:48 AM CDT) TRIGLYCERIDE 2,373(H) <150 mg/dL 01/14/2019 10:49 AM CDT [facility] Dick or Bro [facility] Blood Collection / Unknown 01/14/2019 9:48 AM CDT 01/14/2019 9:48 AM CDT [facility] Dick or Bro [facility] - 01/14/2019 10:49 AM CDT TRIGLYCERIDES ? mg/dL Normal ?< 150 Borderline High ?150 - 199 High ? 200 - 499 Very High ? >= 500 Based on AHA/NCEP Guidelines. Alize Arteaga MD CHEMISTRY ORDER [facility]# [id number] [address] [facility] [place] [address] documented in this encounter Visit Diagnoses Diagnosis Metabolic syndrome- Primary Dysmetabolic Syndrome X History of gestational diabetes Personal history of gestational diabetes Family history of diabetes mellitus Family history of early CAD Family history of ischemic heart disease PCOS (polycystic ovarian syndrome) Polycystic ovaries Hypothyroidism, unspecified type Chylomicronemia syndrome Hyperchylomicronemia Hypertriglyceridemia Pure hyperglyceridemia Nausea vomiting and diarrhea Nausea with vomiting Depression with anxiety Dysthymic disorder Tobacco use Tobacco use disorder Type 2 diabetes mellitus without complication, with long-term current use of insulin Hyponatremia Hyposmolality and/or hyponatremia Gastroesophageal reflux disease, esophagitis presence not specified Epigastric pain Abdominal pain, epigastric History of plasmapheresis Mixed hyperlipidemia History of pancreatitis Personal history of other diseases of digestive system Left upper quadrant pain Abdominal pain, left upper quadrant Acquired hypothyroidism Unspecified hypothyroidism Recurrent pancreatitis Chronic pancreatitis documented in this encounter Administered Medications Inactive Administered Medications - up to 3 most recent administrations Medication Order MAR Action Action Date Dose Rate Site calcium GLUCONATE 2,000 mg in sodium chloride 0.9% 120 mL IVPB 2,000 mg, IV, INTRA-PROCEDURE ONCE, 1 dose, Starting on Sat01/14/19 at 1000, Until Sat01/14/19 at 1050, Routine New Bag 01/14/2019 10:00 AM CDT 2,000 mg 240 mL/hr heparin injection 2,000 Units 2,000 Units, IV, ONE TIME ONLY, 1 dose, On Sat01/14/19 at 1030, Stat, PLEASE TUBE TO STATION 516. Given 01/14/2019 11:32 AM CDT 2,000 Units heparin injection 2,000 Units 2,000 Units, IV, ONE TIME ONLY, 1 dose, On Sat01/14/19 at 1030, Stat, PLEASE TUBE TO STATION 516. Given 01/14/2019 11:22 AM CDT 2,000 Units documented in this encounter Care Teams Personal Property Assessor Relationship Specialty Start Date End Date Guerrero Middleton PA-C PCP - General Physician Water Plant Pump Operator 02/13/18 documented as of this encounter
--- OUTSIDE RECORDS SUMMARY | 2024-05-03 20:43 | XMS_ITS | Encounter Summary ---
Author Organization [facility] Address [address] [place] [address] Care Team Providers Care Aircraft Magneto Mechanic Name Role Phone Guerrero Middleton PA-C Primary Care Provide r Encounter Details Date Type Department Care Team (Latest Contact Info) Description 01/15/2019 9:56 AM CDT - 01/15/2019 11:59 PM T Hospital Encounter [facility] Blood Bank Donor Center S [facility] [address] [place] [address] Alize Arteaga MD NO ADDRESS ON FILE [...] often do you attend chur ch or uatsdin services? Never 08/21/2018 Do you [...] Sign Reading Time Taken Comments Blood Pressure 119/85 01/15/2019 12:39 PM CDT Pulse 102 01/15/2019 12:39 PM CDT Temperature 36.9 ??C (98.5 ??F) 01/15/2019 12:39 PM C DT Respiratory Rate 18 01/15/2019 12:39 PM CDT Oxygen Saturation - - Inhaled [...] Progress Notes * Rosales Tapia RN - 01/15/2019 10:00 AM CDT 1.0 volume plasma exchange completed using 5% albumin. Bard ports accessed and de-accessed without any issues. Bard ports locked with heparin ( see MAR). Triglyceride pre-procedure 3335, Dr. Arteaga aware. Next procedure scheduled for 01/16/2019. Occlusive dressing with gauze applied tosite. Dressing is clean, dry and intact at time of discharged. Post vitals taken, pt stable. Pt left ambulatory. * Alize Arteaga MD - 01/15/2019 10:00 AM CDT CC: ??43??yo female with hypertriglyceridemia associated??with??recurrent necrotizing pancreatitis initiated on prophylactic plasma exchange for prevention of hypertriglyceridemic pancreatitis starting 11/12/18.??(ASFA category III indication for apheresis). ?? Interval history: ?Has been less consistent with diet recently as traveling a bit with her children for their band activities. Feeling worse lately. Having abdominal pain, nausea, facial fullness,and migraines- all of which she associates with episodes of hypertriglyceridemic pancreatitis. Due to all of this we are doing two procedures on back to back days. ?? PMH: ??Hypertriglyceridemia (associated with prior episodes [...] Oriented x 3 - Normal Affect ?? Labs:??triglycerides??3,3335 (pre) ?? A&P: 1. 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 2. ??We will perform a 1.0 volume plasma exchange with all albumin replacement with 100% fluid balance with 2 g calcium gluconate over the procedure. 3.??Per Drs. Rudd and Moreno,??goal??triglycerides <500 initially, although my literature review suggests optimal results with triglycerides <100-200.??We will obtain triglycerides prior toeach procedure. ??We may need to modify plan based on triglyceride results. 4. Patient??complained??port discomfort. ??Evaluated by IR at end of November. ??Plan is for three months of watchful waiting. ??To revisit at end of February 2019. ?? 6.?Still have not established steady state maintenance. We will do at least one procedure next week. Patient to return for one procedure at beginning of next week and we will determine needs for further treatments after we see how she does with that procedure. ?? I have seen and examined the patient, reviewed pertinent notes and records. ?? Alize Arteaga MD, PhD Affiliate Manager, therapeutic apheresis service [phone] ?? Procedure #8 notes: patient tolerated procedure well.? documented in this encounter Plan of Treatment Upcoming Encounters Date Type Department Care Team (Late st Contact Info) Description 09/14/2024 3:00 PM CDT Office Visit [facility] - [place] [address] [place] [address] Marlys Mayer MD [address] [place] [address] documented as of this encounter Procedures Procedure Name Priority Date/Time Associated Diagnosis Comments TRIGLYCERIDE Routine 01/15/2019 10:05 AM CDT Hypertriglyceridemia documented in this encounter Results * (ABNORMAL) TRIGLYCERIDE (01/15/2019 10:05 AM CDT) TRIGLYCERIDE 3,335(H) <150 mg/dL 01/15/2019 11:44 AM CDT [facility] Blood Collection / Unknown 01/15/2019 10:05 AM CDT 01/15/2019 10:58 AM CDT Narrative [facility] - 01/15/2019 11:44 AM CDT TRIGLYCERIDES ? mg/dL Normal ?< 150 Borderline High ?150 - 199 High ? 200 - 499 Very High ? >= 500 Based on AHA/NCEP Guidelines. Alize Arteaga MD CHEMISTRY ORDER [facility] [id number] [address] [facility] [place] [address] documented in this encounter Visit Diagnoses Diagnosis Hypertriglyceridemia- Primary Pure hyperglyceridemia documented in this encounter Administered Medications Inactive Administered Medications - up to 3 most recent administrations Medication Order MAR Action Action Date Dose Rate Site calcium GLUCONATE 2,000 mg in sodium chloride 0.9% 120 mL IVPB 2,000 mg, IV, INTRA-PROCEDURE ONCE, 1 dose, Starting on Katie 01/15/19 at 1000, Until Katie 01/15/19 at 1310, Routine New Bag 01/15/2019 11:10 AM CDT 2,000 mg 60 mL/hr heparin injection 2,000 Units 2,000 Units, IV, ONE TIME ONLY, 1 dose, On Katie 01/15/19 at 1000, Routine, PLEASE TUBE TO STATION 516. Given 01/15/2019 12:25 PM CDT 2,000 Units heparin injection 2,000 Units 2,000 Units, IV, ONE TIME ONLY, 1 dose, On Katie 01/15/19 at 1000, Routine, PLEASE TUBE TO STATION 516. Given 01/15/2019 12:25 PM CDT 2,000 Units documented in this encounter Care Teams Aircraft Magneto Mechanic Relationship Specialty Start Date End Date Guerrero Middleton PA-C PCP - General Physician Investment Professional 02/13/18 documented as of this encounter
--- OUTSIDE RECORDS SUMMARY | 2024-05-03 20:43 | XMS_ITS | Encounter Summary ---
Author Organization [facility] Address [address] [place] [address] Care Team Providers Care Per Diem Nurse Name Role Phone Guerrero Middleton PA-C Primary Care Provide r Reason for Visit * Auth/Cert Specialty Diagnoses / Procedures Referred By Conthardik t Referred To Contact General Surgery Diagnoses Follow up Procedures IR VENOUS NECK [facility] Int [facility] [place] [address] [place] [address] Referral ID Status Reason Start Date Expiration Date Visits Re quested Visits Authorized [id number] 1 1 Encounter Details Date Type Department Care Team (Late st Contact Info) Description 02/18/2019 8:34 AM CDT Anesthesia Event [facility] Interventional Radiology S [facility] [address] [place] [address] Tyra Lugo MD [address] [place] [address] Grady Goldberg CRNA [address] [place] [address] Anesthesia Record Procedure Summary Procedure Name Responsible Anesthesiologist Anesthesia Start Time Anesthesia Stop Time IR VENOUS NECK Tyra Lugo MD 02/18/19 0834 1014 Events Date Time Event Comment 02/18/2019 0715 0759 AN Equip Check Anesthesia eq uipment and materials checked in accordance with local policy. 0834 An Start 0834 An Start Data 0834 Pre-Induction Immediate pre- induction anesthetic assessment performed. Vital signs as noted on graphic. 0840 An Induction 0845 Anesthesia Ready 0845 Quick Note Waiting for Dr. Powell 1007 an stop data 1014 Hand-off to Receiving [facility] elizabeth Post-Anesthetic transfer of care report elements to appropriate post-anesthesia recovery environment completed in accordance with procedure. Report given in ACIU to RN, patient alert, VSS on RA. 1014 An Stop Meds Name Total midazolam PF (VERSED) 1 mg/mL injection 1 mg fentaNYL (SUBLIMAZE) PF 50??mcg/mL injec tion 75 mcg lidocaine PF (XYLOCAINE MPF) 2% cardiac injection 60 mg propofol (DIPRIVAN) 10??mg/mL injection 100 mg propofol (DIPRIVAN) 10??mg/mL injection 1,070.09 mg ceFAZolin (ANCEF) 2,000 mg in dextrose ( iso-osmotic) 100 mL IVPB (PREMIX) 2,000 mg lactated ringers infusion 500 mL * Agents Name O2 N2O Inspired N2O O2 * Blood No blood administrations on file. Lines, Drains, and Airways Type Details Placement Removal Vascular Access Port 10/29/18; 1135; No; Right:; (Right IJ); top entry; 02/19/20; observed not present 10/29/18 1135 by Aura Parks RN Supraglottic Airway Type: simple mask, n marivel airway; Confirmation: satisfactory chest rise, SAO2, end tidal CO2 02/18/19 0840 by Grady Goldberg, FARRUKH 02/19/19 0059 by PROVIDER, DISCHARGE PATIENT Vascular Access Port 02/18/19; 0951; No; Left:; top entry; noncoring straight; 16 gauge; (1.77 in); 1; tolerated well (anesthesia); intradermal injection; 02/19/20; observed not present 02/18/19 0951 by Nora Agarwal RN Wound 02/18/19; 0955; No; 1; Right, upper; chest; surgical; 08/13/20; 18402/18/19 0955 by Nora Agarwal RN 08/13/20 184 by Katia Lima RN Wound 02/18/19; 0956; No; 2; Left, upper; chest; surgical; 08/13/20; 1843 02/18/19 0956 by Nora Agarwal RN 08/13/201842 by Katia Lima k 9 handler/ deputy Access Port 02/18/19; 0957; Rig ht:; top entry; noncoring straight; 16 gauge; (1.77in); 1; tolerated well (anesthesia); intradermal injection; 08/10/20; observed not present 02/18/19956 by Nora Agarwal RN documented in this encounter Social History [...] often do you attend chur ch or orthodox services? Never 08/21/2018 Do you [...] OR Notes * Anesthesia Postprocedure Evaluation - Grady Goldberg CRNA - 02/18/2019 10:15 AM CDT Post Anesthesia Evaluation Anesthesia Post Evaluation Patient location: IU. Patient participation: patient was able to participate in the post op evaluation Level of consciousness: 0 = alert, responsive, answers simple questions appropriately, able to perform simple tasks Pain management: adequate Airway patency: patent Nausea or Vomiting: none Anesthetic complications: no Cardiovascular status: regular rate and rhythm Respiratory status: no respiratory symptoms Hydration status: well hydrated Grady Goldberg CRNA * Anesthesia Handoff - Grady Goldberg CRNA - 02/18/2019 10:14 AM CDT Post-Anesthetic transfer of care report elements to [...] questions and acknowledgement of understanding. Vital Signs: Per anesthetic record. 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 Use of blood products: consented to blood products. Plan discussed with Nurse Word Processing Supervisor. Post-op Pain Control Plan to use Block and Per surgeon for post-op pain control. Plan for postoperative opioid use Smoking Compliance Patient smoked on day of surgery documented in this encounter Plan of Treatment Upcoming Encounters Date Type Department Care Team (Late st Contact Info) Description 09/14/2024 3:00 PM CDT Office Visit [facility] - [facility] [address] [place] [address] Marlys Mayer MD [address] [facility] [address] [place], [place] [phone] documented as of this encounter Visit Diagnoses Not on filedocumented in this encounter Administered Medications Inactive Administered Medications - up to 3 most recent administrations Medication Order MAR Action Action Date Dose Rate Site ceFAZolin (ANCEF) 2,000 mg in dextrose (iso-osmotic) 100 mL IVPB (PREMIX) 2,000 mg, IV, PRE-PROCEDURE ONCE, 1 dose, Starting on Sat02/18/19 at 0654, Until Sat02/18/19 at 0840, Routine, Antibiotic Indication: Surgical prophylaxis Given 02/18/2019 8:40 AM CDT 2,000 mg fentaNYL PF (SUBLIMAZE) 50 mcg/mL injection INTRA-PROCEDURE PRN, Starting on Sat02/18/19 at 0834, Until Sat02/18/19 at 1014, Routine, Anesthesia Intra-op Given 02/18/2019 9:31 AM CDT 25 mcg Given 02/18/2019 8:34 AM CDT 50 mcg lactated ringers infusion INTRA-PROCEDURE CONTINUOUS PRN, Starting on Sat02/18/19 at 0834, Until Sat02/18/19 at 1014, Routine, Anesthesia Intra-op New Bag 02/18/2019 8:34 AM CDT lidocaine (XYLOCAINE MPF) 20 mg/mL (2 %) cardiac injection INTRA-PROCEDURE PRN, Starting on Sat02/18/19 at 0840, Until Sat02/18/19 at 1014, Routine, Anesthesia Intra-op Given 02/18/2019 8:40 AM CDT 60 mg midazolam (PF) (VERSED) injection INTRA-PROCEDURE PRN, Starting on Sat02/18/19 at 0834, Until Sat02/18/19 at 1014, Routine, Anesthesia Intra-op Given 02/18/2019 8:34 AM CDT 1 mg propofol (DIPRIVAN) injection INTRA-PROCEDURE PRN, Starting on Sat02/18/19 at 0840, Until Sat02/18/19 at 1014, Anesthesia Intra-op Given 02/18/2019 8:40 AM CDT 100 mg propofol (DIPRIVAN) injection INTRA-PROCEDURE CONTINUOUS PRN, Starting on Sat02/18/19 at 0840, Until Sat02/18/19 at 1014, Anesthesia Intra-op Rate Change 02/18/2019 9:50 AM CDT 150 mcg/kg/min 80.19 mL/hr Rate Change 02/18/2019 9:10 AM CDT 180 mcg/kg/min 96.23 mL /hr Rate Change 02/18/2019 8:47 AM CDT 160 mcg/kg/min 85.54 mL /hr documented in this encounter Care Teams Per Diem Nurse Relationship Specialty Start Date End Date Guerrero Middleton PA-C PCP - General Physician Educational Therapy Teacher 02/13/18 documented as of this encounter
--- OUTSIDE RECORDS SUMMARY | 2024-05-03 20:43 | XMS_ITS | Encounter Summary ---
Author Organization [facility] Address [address] [place] [address] Care Team Providers Care Bus Driver/Monitor Name Role Phone Guerrero Middleton PA-C Primary Care Provide r Encounter Details Date Type Department Care Team (Latest Contact Info) Description 03/20/2019 10:00 AM RESPIRATORY CARE PROGRAM DIRECTOR - 03/20/2019 11:59 PM [facility] Hospital Encounter [facility] [address] [place] [address] Alize Arteaag MD NO ADDRESS ON FILE Discharge Disposition: [...] Sign Reading Time Taken Comments Blood Pressure 105/73 03/20/2019 1:10 PM RESPIRATORY CARE PROGRAM DIRECTOR Pulse 96 03/20/2019 1:10 PM RESPIRATORY CARE PROGRAM DIRECTOR Temperature 37 ??C (98.6 ??F) 03/20/2019 1:10 PM RESPIRATORY CARE PROGRAM DIRECTOR Respiratory Rate 16 03/20/2019 1:10 PM RESPIRATORY CARE PROGRAM DIRECTOR Oxygen Saturation - - Inhaled Oxygen Concentration [...] by mouth 2 times daily. 06/05/2018 09/26/2023 HYDROcodone-acetamino phen (NORCO) 5-325 mg tabletIndications:Gen eralized abdominal pain,Hypertriglycerid emia Take 1 Tablet by mouth every 6 hours as needed for Pain, Severe. Max Daily Amount: 4 Tablets 10 Tablet 02/04/2019 04/16/2019 levothyroxine 200 mcg tablet Take 1 Tablet [...] Progress Notes * Rosales Tapia, RN - 03/20/2019 1:30 PM CST Pt complained of left bard port pulling when she turns her head. Dr. Arteaga notified, okay to access and start TPE. Dr. Arteaga will follow up with IR. Cathflo instilled in left bard port because of no blood return. Good blood return after 90 minutes.Left bard port flushed with saline and locked with heparin. Gauze and occlusive dressing applied. Plasma exchange completed using the right ac for access and right bard port for return with 5% albumin as replacement fluids for a 1.0 volume exchange. Right bard port flushed with saline and locked with heparin, gauze and occlusive dressing applied. Coflex and gauze applied to right arm. No activebleeding noted at the three access site at the time of discharge. Post vitals taken, pt left in stable condition. 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 ?? Interval history: ?Feeling pretty good.??No interval illness. Patient reports pulling sensation in L neck where the port is located when she turns her head. ?? PMH: ??Hypertriglyceridemia (associated with prior episodes [...] with pink scar -L chest port site healed with pink scar Respiratory: - Unlabored breathing Neuro: - Alert and Oriented x 3 - Normal Affect ?Labs: 02/18/19: WBC 9.5, Hgb 12.6, Hct 37.5, Plt 220 03/04/19: triglyceride 728 (preprocedure) ?? A&P: 1. 43??yo female with??recurrent??hypertriglyceridemic pancreatitis [...] to modify plan based on triglyceride results. 4.?Still have not established steady state maintenance. ??We will continue with??one procedure per week. 5. Left port continues to require cathflo. Will continue to monitor. 6. Patient to go on two week [employer] cruise next week. Patient reminded to avoid alcohol and high fat foods on her travels. We will see her when she returns from her cruise to resume once weekly treatment. ?? I have seen and examined the patient, reviewed pertinent notes and records, and remained immediately available throughout the procedure. ?? Alize Arteaga MD, PhD Technical Delivery Manager, therapeutic apheresis service [phone] ?? Procedure??notes:??Cathflo needed to get adequate return in L BARD powerflow port.??L port not usedfor procedure. R bard port and R AC used for procedure. Patient tolerated procedure well.?? IRATORY CARE PROGRAM DIRECTOR documented in this encounter Plan of Treatment Upcoming Encounters Date Type Department Care Team (Late st Contact Info) Description 09/14/2024 3:00 PM CDT Office Visit [facility] [place] [id number] [place] [address] Marlys Mayer MD [address] [place] [address] documented as of this encounter Procedures Procedure Name Priority Date/Time Associated Diagnosis Comments CBC WITH DIFFERENTIAL Routine 03/20/2019 10:50 AM RESPIRATORY CARE PROGRAM DIRECTOR Hypertriglyceridemi a TRIGLYCERIDE Routine 03/20/2019 10:50 AM RESPIRATORY CARE PROGRAM DIRECTOR Hypertriglyceridemi a documented in this encounter Results * (ABNORMAL) CBC WITH DIFFERENTIAL (03/20/2019 10:50 AM RESPIRATORY CARE PROGRAM DIRECTOR) WBC 9.5 4.0 - 9.8 K/uL 03/20/2019 11:29 AM RESPIRATORY CARE PROGRAM DIRECTOR [facility] RBC 4.29 3.90 - 4.90 M/uL 03/20/2019 11:29 AM RESPIRATORY CARE PROGRAM DIRECTOR [facility] [facility] HEMOGLOBIN 12.6 11.8 - 14.8 g/dL 03/20/2019 11:29 AM RESPIRATORY CARE PROGRAM DIRECTOR [facility] HEMATOCRIT 37.5 35.5 - 44.0 % 03/20/2019 11:29 AM RESPIRATORY CARE PROGRAM DIRECTOR [facility] [facility] MCV 87.4 82.0 - 99.0 fL 03/20/2019 11:29 AM [employer] [employer] [facility] MCH 29.4 27.2 - 32.6 pg 03/20/2019 11:29 AM RESPIRATORY CARE PROGRAM DIRECTOR [facility] [facility] MCHC 33.6 31.5 - 35.5 g/dL 03/20/2019 11:29 AM RESPIRATORY CARE PROGRAM DIRECTOR [facility] RDW 15.1(H) 11.5 - 14.5 % 03/20/2019 11:29 AM [facility] [employer] [facility] RDW-STDEV 48.2 37.1 - 48.7 fL 03/20/2019 11:29 AM [facility] [employer] [facility] PLATELETS 220 140 - 350 K/uL 03/20/2019 11:29 AM RESPIRATORY CARE PROGRAM DIRECTOR [facility] MPV 9.8 9.3 - 12.4 fL 03/20/2019 11:29 AM RESPIRATORY CARE PROGRAM DIRECTOR [facility] NEUTROPHILS 68 % 03/20/2019 11:29 AM RESPIRATORY CARE PROGRAM DIRECTOR [facility] LYMPHOCYTES 27 % 03/20/2019 11:29 AM RESPIRATORY CARE PROGRAM DIRECTOR [facility] MONOCYTES 4 % 03/20/2019 11:29 AM RESPIRATORY CARE PROGRAM DIRECTOR [facility] EOSINOPHILS 1 % 03/20/2019 11:29 AM RESPIRATORY CARE PROGRAM DIRECTOR [facility] BASOPHILS 0 % 03/20/2019 11:29 AM RESPIRATORY CARE PROGRAM DIRECTOR [facility] IMMATURE GRANULOCYTES 0 % 03/20/2019 11:29 AM [facility] NEUTROPHIL ABSOLUTE 6.39 1.90 - 7.00 K/uL 03/20/2019 11:29 AM [facility] LYMPHOCYTE ABSOLUTE 2.54 0.70 - 4.50 K/uL 03/20/2019 11:29 AM [facility] MONOCYTE ABSOLUTE 0.37 0.10 - 1.30 K/uL 03/20/2019 11:29 AM [facility] EOSINOPHIL ABSOLUTE 0.07 0.00 - 0.70 K/uL 03/20/2019 11:29 AM [facility] BASOPHILS ABSOLUTE 0.04 0.00 - 0.20 K/uL 03/20/2019 11:29 AM [facility] IMMATURE GRANULOCYTES ABSOLUTE 0.04(H) 0.00 - 0.03 K/uL 03/20/2019 11:29 AM [facility] Blood Venipuncture / Unknown 03/20/2019 10:50 AM RESPIRATORY CARE PROGRAM DIRECTOR 03/20/2019 10:54 AM RESPIRATORY CARE PROGRAM DIRECTOR Alize Arteaga MD HEMATOLOGY [facility] Organization Address City/State/ZIP Co de Phone Number [facility]# [id number] [address] [place] [address] * (ABNORMAL) TRIGLYCERIDE (03/20/2019 10:50 AM RESPIRATORY CARE PROGRAM DIRECTOR) TRIGLYCERIDE 1,419(H) <150 mg/dL 03/20/2019 12:55 PM RESPIRATORY CARE PROGRAM DIRECTOR [facility] [employer] [facility] Blood Venipuncture / Unknown 03/20/2019 10:50 AM RESPIRATORY CARE PROGRAM DIRECTOR 03/20/2019 10:54 AM RESPIRATORY CARE PROGRAM DIRECTOR Narrative [facility] - 03/20/2019 12:55 PM RESPIRATORY CARE PROGRAM DIRECTOR TRIGLYCERIDES ? mg/dL Normal ?< 150 Borderline High ?150 - 199 High ? 200 - 499 Very High ? >= 500 Based on AHA/NCEP Guidelines. Alize Arteaga MD CHEMISTRY ORDER [facility]# [id number] [address] [place] [address] documented in this encounter Visit Diagnoses Diagnosis Hypertriglyceridemia- Primary Pure hyperglyceridemia documented in this encounter Administered Medications Inactive Administered Medications - up to 3 most recent administrations Medication Order MAR Action Action Date Dose Rate Site alteplase (CATHFLO ACTIVASE) 2 mg injection 2 mg 2 mg, Dwell, ONE TIME ONLY, 1 dose, On Sat03/20/19 at 0830, Stat, Please tube to station [id number]. Given 03/20/2019 11:05 AM RESPIRATORY CARE PROGRAM DIRECTOR 2 mg Chest, Left calcium GLUCONATE 2,000 mg in sodium chloride 0.9% 120 mL IVPB 2,000 mg, IV, INTRA-PROCEDURE CONTINUOUS, Starting on Sat03/20/19 at 1000, Until 03/21/19 at 0245, Routine New Bag 03/20/2019 11:47 AM RESPIRATORY CARE PROGRAM DIRECTOR 2,000 mg 240 mL/hr heparin injection 2,000 Units 2,000 Units, IV, ONE TIME ONLY, 1 dose, On Sat03/20/19 at 1000, Routine, Tube to 516, thanks! Given 03/20/2019 12:30 PM RESPIRATORY CARE PROGRAM DIRECTOR 2,000 Units heparin injection 2,000 Units 2,000 Units, IV, ONE TIME ONLY, 1 dose, On Sat03/20/19 at 1000, Routine, Tube to 516, thanks! Given 03/20/2019 12:33 PM RESPIRATORY CARE PROGRAM DIRECTOR 2,000 Units documented in this encounter Care Teams Bus Driver/Monitor Relationship Specialty Start Date End Date Guerrero Middleton PA-C PCP - General Physician Print Shop Assistant 02/13/18 documented as of this encounter
--- OUTSIDE RECORDS SUMMARY | 2024-05-03 20:43 | XMS_ITS | Encounter Summary ---
Author Organization [facility] Address [address] [place] [address] Care Team Providers Care Tire Mold Engraver Name Role Phone Guerrero Middleton PA-C Primary Care Provide r Reason for Visit * Reason Comments Abdominal Pain upper abd pain that wraps around back began yesterday evening. + nausea, vomiting. LBM was yesterday. BM was normal. denies fever and urinary symptoms. pain is worse with movement * Auth/Cert Specialty Diagnoses / Procedures Referred By Tequila bowman Referred To Contact Emergency Medicine [facility] Emergency Dept [address] [place] [address] Referral ID Status Reason Start Date Expiration Date Visits Re quested Visits Authorized [id number] 1 1 Encounter Details Date Type Department Care Team (Latest Contact Info) Description 04/11/2019 11:43 PM SENIOR COMMUNICATIONS ENGINEER - 04/16/2019 4:42 PM SENIOR COMMUNICATIONS ENGINEER Hospital Encounter [facility] Trauma and Surgery [address] [place] [address] Herrera Maza MD [address] [facility] [place] [address] Pernell Tapia MD [address] [place] [address] [place] [address] [place] [address] Laurie Casper MD [address] [facility] [address] [facility] [address] Jeffry Salazar MD [address] [facility] [address] [facility] [address] Acute on chronic pancreatitis Discharge Disposition: Home [...] How often do you attend chur or rastafari services? Never 08/21/2018 Do you [...] Sign Reading Time Taken Comments Blood Pressure 100/52 04/16/2019 11:56 AM SENIOR COMMUNICATIONS ENGINEER Pulse 77 04/16/2019 11:56 AM SENIOR COMMUNICATIONS ENGINEER Temperature 36.9 ??C (98.5 ??F) 04/16/2019 11:[address] Respiratory Rate 16 04/16/2019 11:56 AM SENIOR COMMUNICATIONS ENGINEER Oxygen Saturation 97% 04/16/2019 11:56 AM SENIOR COMMUNICATIONS ENGINEER Inhaled Oxygen Concentration - - Weight 89.5 kg (197 lb 4.8 oz) 04/14/2019 4:11 A M SENIOR COMMUNICATIONS ENGINEER Height 165.1 cm (5' 5 ) 04/11/2019 11:15 PM SENIOR COMMUNICATIONS ENGINEER Body Mass Index 32.83 04/11/2019 11:15 PM SENIOR COMMUNICATIONS ENGINEER documented in this encounter Discharge Summaries * Jeffry Salazar MD - 04/16/2019 9:14 AM CST [facility] Discharge Summary Patient Name: Casandra Doss / 43 y.o. / female : 1975 Primary Care Physician: Guerrero Middleton PA-C Date of Admission: 04/11/2019 Date of Discharge : 04/16/2019 Discharge Diagnoses: See below MEDICATIONS Discharge medications and new prescriptions: Medication List START taking these medications oxyCODONE-acetaminophen 5-325 mg tablet Commonly known as: PERCOCET Take 1 Tablet by mouth every 6 hours as needed for Pain, Break-Through. Max Daily Amount: 4 Tablets Signed by: Jeffry Salazar MD Quantity: 17 Tablet Refills: 0 CONTINUE taking these medications citalopram 40 mg tablet Commonly known as: CeleXA Take 40 mg by mouth daily at bedtime. Refills: 0 dicyclomine 10 mg capsule Commonly known as: BENTYL Take 1 Capsule by mouth 4 times daily. Signed by: Sadie Roldan MD Quantity: 60 Capsule Refills: 0 empagliflozin 10 mg tablet Commonly known as: JARDIANCE Take 1 Tablet (10 mg) by mouth daily security operations center analyst. Signed by: Blake Rudd MD Quantity: 30 [...] . Refills: 0 STOP taking these medications HYDROcodone-acetaminophen 5-325 mg tablet Commonly known as: NORCO Where to Get Your Medications These medications were sent to [facility] [address] [place] [address], [facility] [address] ?? oxyCODONE-acetaminophen 5-325 mg tablet Consults: Significant Diagnostic Studies: CT abd.pel Acute interstitial edematous pancreatitis. ?? Complex 4.8 cm right adnexal cyst. 4-6 week pelvic ultrasound follow-up recommended.. Discharge Exam: General: Alert, cooperative, no distress, appears stated age. Lungs: Clear to auscultation bilaterally. Heart: Regular rate and rhythm, S1, S2 normal Abdomen: Soft, non-tender. Bowel sounds normal. No masses, No organomegaly. Extremities: Extremities atraumatic, no cyanosis or edema. Hospital Course: 1. Acute on chronic pancreatitis with history of hypertriglyceridemia -Lipase neg but CT shows pancreatic edema. Cont apheresis per usual schedule. Pain better and now ADAT to low fat and doing well 2. Diabetes mellitus, type II: Resume home regimen. Stable 3. Hypothyroidism -continue Synthroid 4. Hypertriglyceridemia -continue Lipitor and fenofibrate; cont pheresis schedule as planned by Dr Arteaga next session 1 week 5. GERD - cont PPI 6. Depression -continue outpatient Celexa and trazodone 7. Port malfunction: IR to see as outpatient 1-2 weeks. Pheresis can cont short term without port 8. R adnexal cyst: Incidental finding on CT scan. US advised 4-6 weeks likely benign Discharge Condition: improving. Disposition: home. Code Status: Full Patient instructions: Activity: activity as tolerated. W Follow-up: Guerrero Middleton PA-C 1 week. More than 30 minutes were spent in this discharge activity. Signed: Jeffry Salazar MD 04/16/2019, 5:49 PM OR COMMUNICATIONS ENGINEER documented in this encounter Discharge Instructions * Discharge Instructions* Jeffry Salazar MD - 04/16/2019 1:54 PM SENIOR COMMUNICATIONS ENGINEER Your discharging physicians are Jeffry Salazar MD /Jeffry Salazar MD and may be reached at [phone] for any questions or concerns until you see your primary care physician. FOLLOW-UP Follow up with Guerrero Middleton PA-C within 7 days of discharge. This post hospital follow up visit presents a critical opportunity to address the conditions that precipitated your hospitalization andto review the new medications prescribed to your during your stay. CT scan showed incidental ovarian cyst and radiology recommends an ultrasound in 1-2 months. Your PCP can set this up Plasma pheresis about 1 week as directed by Dr Arteaga Interventional radiology to fix port 2-3 weeks. They will call to arrange PRESCRIPTIONS GIVEN? Eprescribed SELF CARE: getting rest, eating well and increasing your activity appropriately are all excellent ways to return to your usual state of health prior to this hospital stay. ACTIVITY: Your activity level is: As tolerated. You may return to work/school: as tolerated DIET Your diet is: Low fat diabetic. OR COMMUNICATIONS ENGINEER documented in this encounter Medications at [...] 1 Tablet (10 mg) by mouth daily security operations center analyst. 30 Tablet 5 04/08/2019 10/12/2019 levothyroxine 200 [...] as of this encounter Progress Notes * Nery Viramontes DATA ENTRY MANAGER - 04/16/2019 11:26 AM CST Images from the original note were not included. [facility] INPATIENT DIABETES CONSULT NOTE Name: Casandra Doss : 1975 Date: 04/16/2019 Room/Bed: [facility]/ Hospital Day: LOS: 4 days SUBJECTIVE Patient laying in bed, blinds open, feeling better Tells me she may be discharged today or tomorrow Tolerating nutrition, mild abdominal discomfort No BM but flatus REVIEW OF SYSTEMS: Constitutional: denies fevers, chills, sweats, fatigue, malaise, anorexia, weight loss Respiratory: denies cough, dyspnea, hemoptysis, stridor, wheeze, chest pain Cardiovascular: denies chest pain or discomfort, exertional chest pressure/discomfort, fatigue, pounding heart/chest, nausea, syncope, shortness of breath Gastrointestinal: abdominal pain Endocrine: denies sudden changes in mood, temperature intolerance, polyuria, polydipsia, skin changes ASSESSMENT AND PLAN: Type 2 diabetes mellitus. Continue 16 units Lantus, added 2 units prandial + ACHS ldssi - low fat diet Hypertriglyceridemia. 4 g fish oil, 160 mg fenofibrate, 500 niacin BID; per patient planned for plasmapheresis, sees Dr. Arteaga for care. Hypothyroidism. Continue 200 mcg Levothyroxine ?? Recommendations were discussed with Dr. Rudd, patient, hospitalist, and nursing staff. Please call or page with questions. Lian ViramontesSTELLA CDE 7A - 7P [phone] cell # 7P - 7A [phone] pager MEDICATIONS: Current Facility-Administered Medications Medication Dose Route Frequency Provider Last Rate Last Dose ??? insulin lispro (HumaLOG) variable dose injection subCUT QID Meals Nery Viramontes DATA ENTRY MANAGER ??? insulin lispro (HumaLOG) injection 2 Units 2 Units subCUT TID Meals Nery Viramontes DATA ENTRY MANAGER 2 Units at 04/16/19 0911 ??? [COMPLETED] magnesium hydroxide (MILK OF MAGNESIA) oral suspension 30 mL 30 mL Oral ONCE Jeffry Salazar MD 30 mL at 04/16/19 0917 ??? sennosides-docusate sodium (SENNA-S) 8.6-50 mg per tablet 1 Tablet 1 Tablet Oral Daily Jeffry Salazar MD 1 Tablet at 04/16/19 0917 ??? polyethylene glycol (MIRALAX) packet 17 Gram 17 Gram Oral Daily Jeffry Salazar MD 17 Gram at 04/16/19 0806 ??? oxyCODONE-acetaminophen (PERCOCET) 5-325 mg per tablet 1 Tablet 1 Tablet Oral q 4 hour PRN Jeffry Salazar MD 1 Tablet at 04/16/19 0910 ??? [COMPLETED] heparin injection 2,000 Units 2,000 Units IV ONCE Alize Arteaga MD 2,000 Units at 04/15/19 1418 ??? [DISCONTINUED] heparin injection 2,000 Units 2,000 Units IV ONCE Alize Arteaga MD ??? [DISCONTINUED] HYDROmorphone (DILAUDID) 2 mg/mL injection 0.5 mg 0.5 mg IV q 4 hour PRN Jeffry Salazar MD 0.5 mg at 04/16/19 1021 ??? insulin glargine (LANTUS) injection 16 Units 16 Units subCUT Daily Jeffry Salazar MD 16 Unitsat 04/16/19 0912 ??? [DISCONTINUED] insulin lispro (HumaLOG) variable dose injection subCUT q 4 hour Jeffry Salazar MD 3 Units at 04/15/192003 ??? LORazepam (ATIVAN) tablet 1 mg 1 mg Oral BID PRN Jeffry Salazar MD 1 mg at 04/16/19 0033 ??? fenofibrate (LOFIBRA) tablet 160 mg 160 mg Oral Daily Jeffry Salazar MD 160 mg at 04/16/19 0806 ??? pantoprazole (PROTONIX) tablet 40 mg 40 mg Oral BID Jeffry Salazar MD 40 mg at 04/16/19 0806 ??? citalopram (CeleXA) tablet 40 mg 40 mg Oral Daily BEDTIME Jeffry Salazar MD 40 mg at 142 ??? traZODone (DESYREL) tablet 100 mg 100 mg Oral Daily BEDTIME Jeffry Salazar MD 100 mg at 04/15/192141 ??? levothyroxine (SYNTHROID) tablet 200 mcg 200 mcg Oral Daily Jeffry Salazar MD 200 mcg at 04/16/19 0603 ??? dextrose 5% - sodium chloride 0.9% infusion 40 mL/hr IV See Admin Notes Jeffry Salazar MD ??? dextrose 50% (D50) syringe 12.5 Gram 12.5 Gram IV See Admin Notes Jeffry Salazar MD ??? dextrose 50% (D50) syringe 25 Gram 25 Gram IV See Admin Notes Jeffry Salazar MD ??? glucagon HCl 1 mg injection 1 mg 1 mg IM See Admin Notes Jeffry Salazar MD ??? prochlorperazine (COMPAZINE) injection 10 mg 10 mg IV q 6 hour PRN Jeffry Salazar MD ??? diphenhydrAMINE (BENADRYL) tablet 25 mg 25 mg Oral q 6 hour PRN Jeffry Salazar MD 25 mg at 04/15/192143 ??? bisacodyl (DULCOLAX) rectal suppository 10 mg 10 mg Rectal Daily PRN Jeffry Salazar MD ??? docusate sodium (COLACE) capsule 100 mg 100 mg Oral BID PRN Jeffry Salazar MD ??? naloxone (NARCAN) 0.4 mg/mL injection 0.1 mg 0.1 mg IV See Admin Notes Jeffry Salazar MD ??? enoxaparin (LOVENOX) injection 40 mg 40 mg subCUT q 24 hour Jeffry Salazar MD 40 mg at 04/16/19 0806 ??? atorvastatin (LIPITOR) tablet 80 mg 80 mg Oral Daily BEDTIME Jeffry Salazar MD 80 mg at 04/15/19 2142 ??? ondansetron (ZOFRAN) 4 mg/2 mL injection 4 mg 4 mg IV q 6 hour PRN Jeffry Salazar MD 4 mg at 04/14/19 1606 ??? [DISCONTINUED] insulin regular (HUMULIN R,NOVOLIN R) 1 Units/mL in sodium chloride 0.9% infusion 0-25 Units/hr IV Titrate Jeffry Salazar MD Stopped at 04/13/19 1212 ??? [DISCONTINUED] potassium Cl 20 mEq in NaCl 0.9% 1000 mL infusion IV Continuous Jeffry Salazar MD ??? [DISCONTINUED] potassium Cl 20 mEq in dextrose 5% - NaCl 0.9% 1000 mL infusion IV Continuous Jeffry Salazar MD Stopped at 04/14/19 1721 Facility-Administered Medications Ordered in Other Encounters Medication Dose Route Frequency Provider Last Rate Last Dose ??? calcium GLUCONATE 2,000 mg in sodium chloride 0.9% 120 mL IVPB 2,000 mg IV Intra-Proc Once Alize Arteaga MD ??? heparin injection 2,000 Units 2,000 Units IV ONCE Alize Arteaga MD ??? heparin injection 2,000 Units 2,000 Units IV ONCE Alize Arteaga MD ??? alteplase (CATHFLO ACTIVASE) 2 mg injection 2 mg 2 mg Dwell ONCE Alize Arteaga MD And ??? water sterile injection See Admin Instructions ONCE Alize Arteaga MD ??? alteplase (CATHFLO ACTIVASE) 2 mg injection 2 mg 2 mg Dwell ONCE Alize Arteaga MD And ??? water sterile injection See Admin Instructions ONCE Alize Arteaga MD ALLERGIES: Allergies Allergen Reactions ??? Green Pepper Hives ??? Adhesive Unknown ??? Aspartame Headache All artificial sweeteners. ??? Adhesive Tape-Silicones Hives PAST MEDICAL HISTORY: Past Medical History: Diagnosis Date ??? Anxiety ??? Chylomicronemia syndrome ??? Depression ??? Diabetes [...] TUNNELED VENOUS CATHETER PLACEMENT Right 09/29/2018 ??? CT ESOPHAGOGASTRODUODENOSCOPY TRANSORAL DIAGNOSTIC N/A 03/08/2018 ESOPHAGOGASTRODUODENOSCOPY performed by Ceasar Vega MD at [facility] FAMILY HISTORY: Family History Problem Relation Name Age of Onset ??? Diabetes Father ??? High Cholesterol Father ??? Hypertension Father ??? Stroke Mother ??? Heart Disease Mother ??? Thyroid Disease Mother ??? High Cholesterol Mother ??? Heart Disease Maternal Grandmother ??? Diabetes Maternal Grandmother ??? Diabetes Paternal Grandmother ??? Diabetes Mother SOCIAL HISTORY Social History Socioeconomic History ??? Marital status: Spouse name: Not on file ??? Number of children: Not on file ??? Years of education: Not on file ??? Highest education level: Not on file Occupational History Employer: [employer] Social Needs ??? Financial resource strain: Not hard at all ??? Food insecurity: Worry: Never true Inability: Never true ??? Transportation needs: Medical: No Non-medical: No Tobacco Use ??? Smoking status: Current Every Day Smoker Packs/day: 1.00 Years: 18.00 Pack years: 18.00 Types: Cigarettes ??? Smokeless tobacco: Never Used ??? Tobacco comment: nicotine patch requested Substance and Sexual Activity ??? Alcohol use: No Frequency: Never Binge frequency: Never ??? Drug use: No ??? Sexual activity: Yes Partners: Male Lifestyle ??? Physical activity: Days per week: Patient refused Minutes per session: Patient refused ??? Stress: Only a little Relationships ??? Social connections: Talks on phone: Three times a week Gets together: Three times a week Attends rastafari service: Never Active member of club or organization: No Attends meetings of clubs or organizations: Never Relationship status: ??? Intimate partner violence: Fear of current or ex partner: No Emotionally abused: No Physically abused: No Forced sexual activity: No Other Topics Concern ??? Not on file Social History Narrative Merged History Encounter PHYSICAL EXAM: BP 105/53 Pulse 66 Temp 98.1 ??F (36.7 ??C) Resp 16 Ht 5' 5 (1.651 m) Wt 89.5 kg (197 lb4.8 oz) SpO2 97% BMI 32.83 kg/m?? GEN: lethargic CV: RRR RESP: CTAB ABD: hypoactive NEURO: A&O LABS: Recent Labs 04/15/19 0322 NA 139 K 3.7 CL 105 CO2 26 BUN 3* CREAT 0.54 GLUCOSE 136* Previous Hemoglobin A1C Results: HEMOGLOBIN A1C Date Value Ref Range Status 06/29/2018 7.7 (H) <5.7 % Final 05/16/2018 8.0 (H) <5.7 % Final 03/08/2018 8.7 (H) <5.7 % Final POC Glucose Range: Lab Results Component Value Date/Time GLUCPOC 155 (H) 04/16/2019 09:02 AM GLUCPOC 161 (H) 04/16/2019 01:01 AM GLUCPOC 175 (H) 04/16/2019 12:32 AM GLUCPOC 278 (H) 04/15/2019 07:42 PM GLUCPOC 135 (H) 04/15/2019 04:26 PM GLUCPOC 107 (H) 04/15/2019 11:39 AM GLUCPOC 117 (H) 04/15/2019 07:19 AM GLUCPOC 133 (H) 04/15/2019 03:56 AM GLUCPOC 120 (H) 04/15/2019 01:10 AM GLUCPOC 191 (H) 04/14/2019 09:23 PM OR COMMUNICATIONS ENGINEER Associated attestation - Blake Rudd MD - 04/17/2019 7:10 AM SENIOR COMMUNICATIONS ENGINEER Discussed with DATA ENTRY MANAGER. Agree with documentation. * Bibiana Rockwell NP - 04/16/2019 1:27 AM CST [facility] 04/16/19 1:27 AM Problem: I have an order for D5NS+20K but I believe it is only for the TCU. Was told from previousnurse pt no longer receiving IV fluids. Please advise. Vitals: 04/15/19 1446 04/15/19 1939 04/15/19 2004 04/16/19 0013 Temp: 97.7 ??F (36.5 ??C) 98.3 ??F (36.8 ??C) 98.1 ??F (36.7 ??C) Pulse: 75 78 67 Heart Rate: 74 bpm 77 bpm 70 bpm BP: 96/74 110/56 110/66 Mean Arterial Pressure: 83 MM HG 72 MM HG 78 MM HG Resp: 11 17 16 SpO2: 97% 93% 96% 93% Intervention/Follow up/Discussion: - Endocrinology is managing pts DM needs. Pt was admitted with hyperglycemia and placed on an insulin drip. This is part of that protocol. - Please contact Endocrine DATA ENTRY MANAGER for assistance. Bibiana Rockwell NP Submit an eTicket OR COMMUNICATIONS ENGINEER * Nery Viramontes NP - 04/15/2019 9:49 AM CST Images from the original note were not included. [facility] INPATIENT DIABETES CONSULT NOTE Name: Casandra Doss : 1975 Date: 04/15/2019 Room/Bed: 4236/1 Hospital Day: LOS: 3 days SUBJECTIVE Patient laying in bed, lethargic Reports abdominal pain, but managed with pain medications Tells me she is NPO for port removal (cannot find in chart?) Blood sugar trends reviewed REVIEW OF SYSTEMS: Constitutional: denies fevers, chills, sweats, fatigue, malaise, anorexia, weight loss Respiratory: denies cough, dyspnea, hemoptysis, stridor, wheeze, chest pain Cardiovascular: denies chest pain or discomfort, exertional chest pressure/discomfort, fatigue, pounding heart/chest, nausea, syncope, shortness of breath Gastrointestinal: abdominal pain Endocrine: denies sudden changes in mood, temperature intolerance, polyuria, polydipsia, skin changes ASSESSMENT AND PLAN: Type 2 diabetes mellitus. Continue 16 units Lantus and ACHS ldssi - will monitor as diet was advanced to full liquids. Hypertriglyceridemia. 4 g fish oil, 160 mg fenofibrate, 500 niacin BID; per patient planned for plasmapheresis, sees Dr. Arteaga for care. Hypothyroidism. Continue 200 mcg Levothyroxine ?? Recommendations were discussed with Dr. Rudd, patient, hospitalist, and nursing staff. Please call or page with questions. STELLA Bright [facility] 7A - 7P [phone] cell # 7P - 7A [phone] pager MEDICATIONS: Current Facility-Administered Medications Medication Dose Route Frequency Provider Last Rate Last Dose ??? heparin injection 2,000 Units 2,000 Units IV ONCE Alize Arteaga MD ??? polyethylene glycol (MIRALAX) packet 17 Gram 17 Gram Oral Daily Jeffry Salazar MD ??? HYDROmorphone (DILAUDID) 2 mg/mL injection 0.5 mg 0.5 mg IV q 4 hour PRN Jeffry Salazar MD ??? oxyCODONE-acetaminophen (PERCOCET) 5-325 mg per tablet 1 Tablet 1 Tablet Oral q 4 hour PRN Jeffry Salazar MD ??? insulin glargine (LANTUS) injection 16 Units 16 Units subCUT Daily Nery Viramontes NP 16 Units at 04/15/19820 ??? insulin lispro (HumaLOG) variable dose injection subCUT q 4 hour Nery Viramontes NP 1 Units at 04/14/192123 ??? LORazepam (ATIVAN) tablet 1 mg 1 mg Oral BID PRN Maco Duque MD 1 mg at 04/14/192034 ??? fenofibrate (LOFIBRA) tablet 160 mg 160 mg Oral Daily Pantelis, Maco A, MD 160 mg at ??? pantoprazole (PROTONIX) tablet 40 mg 40 mg Oral BID Maco Duque MD 40 mg at 04/15/19 0821 ??? citalopram (CeleXA) tablet 40 mg 40 mg Oral Daily BEDTIME Maco Duque MD 40 mg at 04/14/192034 ??? traZODone (DESYREL) tablet 100 mg 100 mg Oral Daily BEDTIME Maco Duque MD 100 mg at 04/14/192034 ??? levothyroxine (SYNTHROID) tablet 200 mcg 200 mcg Oral Daily Maco Duque MD 200 mcg at 04/15/19826 ??? insulin regular (HUMULIN R,NOVOLIN R) 1 Units/mL in sodium chloride 0.9% infusion 0-25 Units/hrIV Titrate Maco Duque MD Stopped at 04/13/19 1212 ??? dextrose 5% - sodium chloride 0.9% infusion 40 mL/hr IV See Admin Notes Maco Duque MD ??? dextrose 50% (D50) syringe 12.5 Gram 12.5 Gram IV See Admin Notes Maco Duque MD ??? dextrose 50% (D50) syringe 25 Gram 25 Gram IV See Admin Notes Maco Duuqe MD ??? glucagon HCl 1 mg injection 1 mg 1 mg IM See Admin Notes Maco Duque MD ??? potassium Cl 20 mEq in NaCl 0.9% 1000 mL infusion IV Continuous Maco Duque MD ??? potassium Cl 20 mEq in dextrose 5% - NaCl 0.9% 1000 mL infusion IV Continuous Maco Duque MD Stopped at 04/14/19 1721 ??? prochlorperazine (COMPAZINE) injection 10 mg 10 mg IV q 6 hour PRN Maco Duque MD ??? diphenhydrAMINE (BENADRYL) tablet 25 mg 25 mg Oral q 6 hour PRN Maco Duque MD 25 mg at106/15/18 2246 ??? bisacodyl (DULCOLAX) rectal suppository 10 mg 10 mg Rectal Daily PRN Maco Duque MD ??? docusate sodium (COLACE) capsule 100 mg 100 mg Oral BID PRN Maco Duque MD ??? naloxone (NARCAN) 0.4 mg/mL injection 0.1 mg 0.1 mg IV See Admin Notes Maco Duque MD ??? enoxaparin (LOVENOX) injection 40 mg 40 mg subCUT q 24 hour Maco Duque MD 40 mg at 04/15/19 0822 ??? atorvastatin (LIPITOR) tablet 80 mg 80 mg Oral Daily BEDTIME Maco Duque MD 80 mg at 04/14/19 2035 ??? ondansetron (ZOFRAN) 4 mg/2 mL injection 4 mg 4 mg IV q 6 hour PRN Laurie Casper MD 4 mg at 04/14/19 1606 ??? [DISCONTINUED] HYDROmorphone (DILAUDID) 2 mg/mL injection 0.5 mg 0.5 mg IV q 2 hour PRN Maco Duque MD 0.5 mg at 04/15/19 0823 Facility-Administered Medications Ordered in Other Encounters Medication Dose Route Frequency Provider Last Rate Last Dose ??? calcium GLUCONATE 2,000 mg in sodium chloride 0.9% 120 mL IVPB 2,000 mg IV Intra-Proc Once Alize Arteaga MD ??? heparin injection 2,000 Units 2,000 Units IV ONCE Alize Arteaga MD ??? heparin injection 2,000 Units 2,000 Units IV ONCE Alize Arteaga MD ??? alteplase (CATHFLO ACTIVASE) 2 mg injection 2 mg 2 mg Dwell ONCE Alize Arteaga MD And ??? water sterile injection See Admin Instructions ONCE Alize Arteaga MD ??? alteplase (CATHFLO ACTIVASE) 2 mg injection 2 mg 2 mg Dwell ONCE Alize Arteaga MD And ??? water sterile injection See Admin Instructions ONCE Alize Arteaga MD ALLERGIES: Allergies Allergen Reactions ??? Green Pepper Hives ??? Adhesive Unknown ??? Aspartame Headache All artificial sweeteners. ??? Adhesive Tape-Silicones Hives PAST MEDICAL HISTORY: Past Medical History: Diagnosis Date ??? Anxiety ??? Chylomicronemia syndrome ??? Depression ??? Diabetes [...] TUNNELED VENOUS CATHETER PLACEMENT Right 09/29/2018 ??? CT ESOPHAGOGASTRODUODENOSCOPY TRANSORAL DIAGNOSTIC N/A 03/08/2018 ESOPHAGOGASTRODUODENOSCOPY performed by Ceasar Vega MD at [facility] FAMILY HISTORY: Family History Problem Relation Name Age of Onset ??? Diabetes Father ??? High Cholesterol Father ??? Hypertension Father ??? Stroke Mother ??? Heart Disease Mother ??? Thyroid Disease Mother ??? High Cholesterol Mother ??? Heart Disease Maternal Grandmother ??? Diabetes Maternal Grandmother ??? Diabetes Paternal Grandmother ??? Diabetes Mother SOCIAL HISTORY Social History Socioeconomic History ??? Marital status: Spouse name: Not on file ??? Number of children: Not on file ??? Years of education: Not on file ??? Highest education level: Not on file Occupational History Employer: [employer] Social Needs ??? Financial resource strain: Not hard at all ??? Food insecurity: Worry: Never true Inability: Never true ??? Transportation needs: Medical: No Non-medical: No Tobacco Use ??? Smoking status: Current Every Day Smoker Packs/day: 1.00 Years: 18.00 Pack years: 18.00 Types: Cigarettes ??? Smokeless tobacco: Never Used ??? Tobacco comment: nicotine patch requested Substance and Sexual Activity ??? Alcohol use: No Frequency: Never Binge frequency: Never ??? Drug use: No ??? Sexual activity: Yes Partners: Male Lifestyle ??? Physical activity: Days per week: Patient refused Minutes per session: Patient refused ??? Stress: Only a little Relationships ??? Social connections: Talks on phone: Three times a week Gets together: Three times a week Attends rastafari service: Never Active member of club or organization: No Attends meetings of clubs or organizations: Never Relationship status: ??? Intimate partner violence: Fear of current or ex partner: No Emotionally abused: No Physically abused: No Forced sexual activity: No Other Topics Concern ??? Not on file Social History Narrative Merged History Encounter PHYSICAL EXAM: BP (!) 94/61 (BP Location: Right arm, Patient Position (BP): Supine) Pulse 71 Temp 98.1 ??F (36.7 ??C) (Oral) Resp 12 Ht 5' 5 (1.651 m) Wt 89.5 kg (197 lb 4.8 oz) SpO2 97% BMI 32.83 kg/m?? GEN: lethargic CV: RRR RESP: CTAB ABD: hypoactive NEURO: A&O LABS: Recent Labs 04/12/19 1138 04/13/19 0340 04/15/19 0322 WBC -- 9.6 -- HGB -- 10.7* -- HCT -- 34.0* -- PLT -- 188 -- NA 133* 134* 139 K 3.8 3.9 3.7 CL 99 101 105 CO2 24 22 26 BUN 5* 2* 3* CREAT 0.50* 0.44* 0.54 GLUCOSE 244* 174* 136* Previous Hemoglobin A1C Results: HEMOGLOBIN A1C Date Value Ref Range Status 06/29/2018 7.7 (H) <5.7 % Final 05/16/2018 8.0 (H) <5.7 % Final 03/08/2018 8.7 (H) <5.7 % Final POC Glucose Range: Lab Results Component Value Date/Time GLUCPOC 117 (H) 04/15/2019 07:19 AM GLUCPOC 133 (H) 04/15/2019 03:56 AM GLUCPOC 120 (H) 04/15/2019 01:10 AM GLUCPOC 191 (H) 04/14/2019 09:23 PM GLUCPOC 165 (H) 04/14/2019 08:13 PM GLUCPOC 189 (H) 04/14/2019 05:13 PM GLUCPOC 141 (H) 04/14/2019 11:54 AM GLUCPOC 212 (H) 04/14/2019 07:51 AM GLUCPOC 220 (H) 04/14/2019 04:03 AM GLUCPOC 208 (H) 04/14/2019 12:19 AM OR COMMUNICATIONS ENGINEER Associated attestation - Blake Rudd MD - 04/17/2019 7:09 AM SENIOR COMMUNICATIONS ENGINEER Discussed with DATA ENTRY MANAGER. Agree with documentation. * Jeffry Salazar MD - 04/15/2019 9:[address] [facility] Adult Progress Note Admit Date: 04/11/2019 Date of Note: 04/15/2019, 9:45 AM LOS: 3 days Previous history of present illness and review of systems have been reviewed today as documented inthe H&P on 04/11/2019; medications, labs, studies, notes, orders and consults have been reviewed. I have reviewed the notes from yesterday. Subjective: abdominal pain improving but still taking IV dilaudid frequently, charisse clears, having some nocturnalhypoxia Objective: BP (!) 94/61 (BP Location: Right arm, Patient Position (BP): Supine) Pulse 71 Temp 98.1 ??F (36.7 ??C) (Oral) Resp 12 Ht 5' 5 (1.651 m) Wt 89.5 kg (197 lb 4.8 oz) SpO2 97% BMI 32.83 kg/m?? Temp (24hrs), Av.3 ??F (36.8 ??C), Min:98 ??F (36.7 ??C), Max:98.7 ??F (37.1 ??C) Exam: Gen alert, flat affect Lungs bilaterally clear to auscultation Heart regular rate and rhythm Abdomen soft, mild epigastric tenderness to palpation without rebound or guarding, bowel sounds present Extremities bilateral lower extremities without edema Data Base: I have reviewed all new labs and studies resulted and pertinent ones are noted below Assessment/Plan of Actively Managed Problems 1. Acute on chronic pancreatitis with history of hypertriglyceridemia -Lipase neg but CT shows pancreatic edema. Cont apheresis and monitor clinical response. Cont PRN medications buit will start to wean off IV pain meds. Discussed with Dr. Arteaga. Charisse clears thus start full liq and ADAT to low fat 2. Diabetes mellitus, type II -transitioned off insulin drip 04/13. Endocrine following. Cont lantus 16 and every 4 hour correctional lispro and adjust as needed. Well controlled currently 3. Hypothyroidism -continue Synthroid 4. Hypertriglyceridemia -continue Lipitor and fenofibrate; a pheresis as outlined above 5. GERD - bid ppi 6. Depression -continue outpatient Celexa and trazodone 7. Port malfunction: IR to see Nutrition: Current Diet and/or Nutritional Supplementation ordered: DIET FULL LIQUID DVT Prophylaxis - Enoxaparin Pettit catheter:absent Lines: port PT/OT:no Current Code Status -Full Code Plan discussed with the patient and endocrine, questions answered. Current Planned Disposition -anticipate home likely 1-2 days More than 35 minutes were spent in the care of this patient today; more than 50% was spent in discussion of expected course of disease, discussion of prognosis, discharge planning, coordination of care and discussion of lab and test results. Jeffry Salazar MD OR COMMUNICATIONS ENGINEER * Jeffry Salazar MD - 04/14/2019 2:[address] [facility] Adult Progress Note Admit Date: 04/11/2019 Date of Note: 04/14/2019, 2:09 PM LOS: 2 days Previous history of present illness and review of systems have been reviewed today as documented inthe H&P on 04/11/2019; medications, labs, studies, notes, orders and consults have been reviewed. I have reviewed the notes from yesterday. Subjective: Nausea and abdominal pain are improving though not resolved. Hasn't had much PO intake, afebrile, port malfucntioning Objective: BP 114/73 (BP Location: Right arm, Patient Position (BP): Supine) Pulse 75 Temp 98.2 ??F (36.8 ??C) (Oral) Resp 11 Ht 5' 5 (1.651 m) Wt 89.5 kg (197 lb 4.8 oz) SpO2 95% BMI 32.83 kg/m?? Temp (24hrs), Av.3 ??F (36.8 ??C), Min:98 ??F (36.7 ??C), Max:98.6 ??F (37 ??C) Exam: Gen alert and cooperative Lungs bilaterally clear to auscultation Heart regular rate and rhythm Abdomen soft, mild epigastric tenderness to palpation without rebound or guarding, bowel sounds present Extremities bilateral lower extremities without edema Data Base: I have reviewed all new labs and studies resulted and pertinent ones are noted below Assessment/Plan of Actively Managed Problems 1. Acute on chronic pancreatitis with history of hypertriglyceridemia -Cont apheresis and monitor clinical response. Cont PRN medications. Discussed with Dr. Arteaga. Start clears today and assess 2. Diabetes mellitus, type II -transitioned off insulin drip 04/13. Endocrine following. Cont lantus 16 and every 4 hour correctional lispro and adjust as needed 3. Hypothyroidism -continue Synthroid 4. Hypertriglyceridemia -continue Lipitor and fenofibrate; a pheresis as outlined above 5. GERD - bid ppi 6. Depression -continue outpatient Celexa and trazodone 7. Port malfunction: IR to see Nutrition: Current Diet and/or Nutritional Supplementation ordered: DIET CLEAR LIQUID DVT Prophylaxis - Enoxaparin Pettit catheter:absent Lines: port PT/OT:no Current Code Status -Full Code Plan discussed with the patient and endocrine, questions answered. Current Planned Disposition -anticipate home at the time of discharge; possible discharge in the next 72 hours More than 35 minutes were spent in the care of this patient today; more than 50% was spent in discussion of expected course of disease, discussion of prognosis, discharge planning, coordination of care and discussion of lab and test results. Jeffry Salazar MD OR COMMUNICATIONS ENGINEER * Kortney Bowles PA - 04/14/2019 12:41 PM CST IR Patient with left port dysfunction. Patient had left port placed on 02/18/2019. IR to try and complete port dye study today if time. OR COMMUNICATIONS ENGINEER * Alize Arteaga MD - 04/13/2019 3:36 PM CST CC: ??43??yo female with with acute hypertriglyceridemic pancreatitis in the setting of ??recurrentnecrotizing pancreatitis requires plasma exchange. HPI: Patient had increasing abdominal pain with [...] healed with pink scar -L chest port site??healed with pink scar Respiratory: - Unlabored breathing Neuro: - Alert and Oriented x 3 - Normal Affect ?Labs: 04/13/19: WBC??9.6, Hgb 10.7, Hct 34.0, Plt 188 04/13/19: triglyceride??548??(preprocedure) ?? A&P: 1. 43??yo female with??acute??hypertriglyceridemic pancreatitis requires ??plasma exchange. Patienthas recurrent necrotizing pancreatitis and was initiated on prophylactic plasma exchange for prevention of hypertriglyceridemic pancreatitis starting 11/12/18.??(ASFA category III indication for apheresis). 2. ??We will perform a 1.0 volume plasma exchange with all albumin replacement with 100% fluid balance with 2 g calcium gluconate over the procedure. To perform daily until triglycerides < 500. ? I have seen and examined the patient, reviewed pertinent notes and records, and remained immediately available throughout the procedure. ?? Alize Arteaga MD, PhD Box Repairer, therapeutic apheresis service [phone] ?? Procedure??notes:?L port not used for procedure. ??R bard port and R AC used for procedure. ??Patient tolerated procedure well until about assisted through, when peripheral site failed. Okay'd aborting procedure. 0.6 volume completed. OR COMMUNICATIONS ENGINEER * Puja Paz RN - 04/13/2019 2:07 PM CST Therapeutic plasma exchange number 1 stopped early due to peripheral site leaking. Okay per Dr. Arteaga. 0.6 fluid volume completed. -74 fluid balance. 5% albumin used as replacement fluid. R chestBARD port remains accessed and hep locked. OR COMMUNICATIONS ENGINEER * Laurie Casper MD - 04/13/2019 12:10 PM CST [facility] Adult Progress Note Admit Date: 04/11/2019 Date of Note: 04/13/2019, 12:11 PM LOS: 1 day Previous history of present illness and review of systems have been reviewed today as documented inthe H&P on 04/11/2019; medications, labs, studies, notes, orders and consults have been reviewed. I have reviewed the notes from yesterday. Subjective: Feeling marginally better today. Nausea and abdominal pain are improving. Denies any chest pain, shortness of breath, or vomiting. Objective: BP 101/57 (BP Location: Right arm, Patient Position (BP): Supine) Pulse 77 Temp 98.4 ??F (36.9 ??C) (Oral) Resp 9 Ht 5' 5 (1.651 m) Wt 88 kg (194 lb) SpO2 97% BMI 32.28 kg/m?? Temp (24hrs), Av.5 ??F (36.9 ??C), Min:97.9 ??F (36.6 ??C), Max:99.4 ??F (37.4 ??C) Exam: Gen alert and cooperative Lungs bilaterally clear to auscultation Heart regular rate and rhythm Abdomen soft, mild epigastric tenderness to palpation without rebound or guarding, bowel sounds present Extremities bilateral lower extremities without edema Data Base: I have reviewed all new labs and studies resulted and pertinent ones are noted below Assessment/Plan of Actively Managed Problems 1. Acute on chronic pancreatitis with history of hypertriglyceridemia -Daily apheresis and monitor clinical response. Continue n.p.o. status for now. Provide PRN medications. Discussed with Dr. Arteaga. 2. Diabetes mellitus, type II -transitioned off insulin drip today. Endocrine following. NS and every 4 hour correctional lispro and adjust as needed 3. Hypothyroidism -continue Synthroid 4. Hypertriglyceridemia -continue Lipitor and fenofibrate; a pheresis as outlined above 5. GERD - bid ppi 6. Depression -continue outpatient Celexa and trazodone Nutrition: Current Diet and/or Nutritional Supplementation ordered: DIET NPO Sips w/Meds, DVT Prophylaxis - Enoxaparin Pettit catheter:absent Lines: port PT/OT:no Current Code Status -Full Code Plan discussed with the patient and endocrine, questions answered. Current Planned Disposition -anticipate home at the time of discharge; possible discharge in the next 72 hours More than 35 minutes were spent in the care of this patient today; more than 50% was spent in discussion of expected course of disease, discussion of prognosis, discharge planning, coordination of care and discussion of lab and test results. Laurie Casper MD OR COMMUNICATIONS ENGINEER * Laurie Casper MD - 04/12/2019 9:44 AM CST Hospitalist Addendum Patient seen and examined; plan of care reviewed. Endocrine consulted Laurie Casper MD OR COMMUNICATIONS ENGINEER * Vicki Garcia NP - 04/12/2019 3:22 AM CST [facility] HOSPITALIST NOTE 04/12/19 3:22 AM Problem: request for morphine and zofran pt. in pain and nauseated Vitals: 04/11/19 2315 04/12/19 0130 04/12/19 0219 04/12/19 0230 Temp: 98.2 ??F (36.8 ??C) Pulse: (!) 108 94 85 83 Heart Rate: 108 bpm BP: 136/85 (!) 143/66 (!) 133/90 121/76 Mean Arterial Pressure: 82 MM HG 99 MM HG 87 MM HG Resp: 18 16 SpO2: 98% 96% 96% 93% Intervention/Follow up/Discussion: Patient new admit. Patient noted to be seen by admitting in-house hospitalist Dr. Duque. Requestnursing secure chat/page admitting hospitalist Vicki Garcia NP Submit an eTicket OR COMMUNICATIONS ENGINEER documented in this encounter H&P Notes * Maco Duque MD - 04/12/2019 3:24 AM CST [facility] Adult Hospitalist Admission H & P Patient Name: Casandra Doss Primary Care Doctor: Guerrero Middleton PA-C Date of Admission: 04/11/2019 Date of Service: 04/12/2019 Chief Complaint: abd pain HPI: Casandra Doss is a 43 y.o. female w/ recurrent pancreatitis and hypertriglyceridemia, gets weekly plasmapheresis. 2 nights ago started developing abdominal pressure. Usually when that starts she tries to fast or just do clear liquids. Pain got worse - upper abdomen and into the back and she developed n/v - x 2-4, no blood. The pressure is constant and she has intermittent sharp pain. No fever. Noetoh. Past Medical History: Diagnosis Date ??? Anxiety ??? Chylomicronemia syndrome ??? Depression ??? Diabetes [...] TUNNELED VENOUS CATHETER PLACEMENT Right 09/29/2018 ??? CT ESOPHAGOGASTRODUODENOSCOPY TRANSORAL DIAGNOSTIC N/A 03/08/2018 ESOPHAGOGASTRODUODENOSCOPY performed by Ceasar Vega MD at [facility] Current Medications: Medications Prior to Admission Medication Sig Dispense Refill Last Dose ??? empagliflozin (JARDIANCE) 10 mg tablet Take 1 Tablet (10 mg) by mouth daily security operations center analyst. 30 Tablet 5 ??? HYDROcodone-acetaminophen (NORCO) 5-325 mg tablet Take 1 Tablet by mouth every 6 hours as needed for Pain, Severe. Max Daily Amount: 4 Tablets 10 Tablet 0 Past Month at Unknown time ??? levothyroxine 200 mcg tablet Take 1 Tablet by mouth daily without food in the morning 30 minutes before eating anything. 30 Tablet 5 03/03/2019 at Unknown time ??? dicyclomine (BENTYL) 10 mg capsule Take 1 Capsule by mouth 4 times daily. 60 Capsule 0 03/03/2019 at Unknown time ??? metFORMIN (GLUCOPHAGE) 500 mg tablet Take 2 Tablets by mouth 2 times daily with meals. 60 Tablet 0 03/03/2019 at Unknown time ??? insulin aspart (NovoLOG) 100 unit/mL injection Inject 1 Units by subcutaneous injection. 25 units with each meal 03/04/2019 at Unknown time ??? ondansetron (ZOFRAN ODT) 4 mg Tablet, Rapid Dissolve Dissolve 1 tablet on top of tongue, then swallow with saliva every 6 hours as needed for nausea/vomiting. 30 Tablet 0 03/03/2019 at Unknown time ??? insulin glargine (LANTUS) 100 unit/mL injection Inject 35 Units by subcutaneous injection 2 times daily. 35 units in the AM 35 units in the PM 03/04/2019 at Unknown time ??? pantoprazole (PROTONIX) 40 mg Tablet, Delayed Release (E.C.) Take 40 mg by mouth 2 times daily . 03/03/2019 at Unknown time ??? traZODone (DESYREL) 100 mg tablet Take 100 mg by mouth daily at bedtime . 03/03/2019 at Unknown time ??? rosuvastatin (CRESTOR) 20 mg tablet Take 20 mg by mouth daily at bedtime. 03/03/2019 at Unknown time ??? LORazepam (ATIVAN) 1 mg tablet Take 1 mg by mouth 2 times daily as needed for Anxiety . 03/03/2019 at Unknown time ??? citalopram (CeleXA) 40 mg tablet Take 40 mg by mouth daily at bedtime. 03/03/2019 at Unknown time ??? fenofibrate (LOFIBRA) 160 mg Oral Tab Take 1 Tab by mouth daily. 90 Tab 0 03/03/2019 at Unknown time Medication Allergies: Allergies Allergen Reactions ??? Green [...] PND, orthopnea, lower extremity edema GI: no abdominal pain, n/v, BRBPR, melena, diarrhea, or constipation : no hematuria, dysuria, frequency Musc: no swollen joints Skin: no new skin rashes Neuro: no focal motor or sensory changes. Psychiatric: no hallucinations Physical Exam: Patient Vitals for the past 8 hrs: BP Temp Temp src Pulse Resp SpO2 Height Weight 04/12/19 0230 121/76 -- -- 83 16 93 % -- -- 04/12/19 0219 (!) 133/90 -- -- 85 -- 96 % -- -- 04/12/19 0130 (!) 143/66 -- -- 94 -- 96 % -- -- 04/11/19 2315 136/85 98.2 ??F (36.8 ??C) Oral (!) 108 18 98 % 5' 5 (1.651 m) 88 kg (194 lb) General: NAD HEENT: Head is NC/AT, PERRL. EOMI, conjuctiva and sclera are nonicteric, oropharynx is moist without obvious lesions Neck: supple, trachea midline, no thyromegaly, no significant adenopathy Lungs: CTA bilaterally CV: RRR, nl S1, S2 Abd: Positive BS, soft, generalized tenderness to moderate palpation without rebound Ext: no clubbing, cyanosis, or edema Skin: no obvious rashes Neuro: alert and oriented and answers questions appropriately. CN 2-12 grossly intact. Data Base: I personally reviewed all pertinent diagnostic data since presentation to the ED and available old records. Labs: Results for orders placed or performed during the hospital encounter of 04/11/19 (from the past 24 hour(s)) CBC WITH DIFFERENTIAL Result Value Ref Range WBC 13.8 (H) 4.0 - 9.8 K/uL RBC 4.35 3.90 - 4.90 M/uL HEMOGLOBIN 13.5 11.8 - 14.8 g/dL HEMATOCRIT 37.0 35.5 - 44.0 % MCV 85.1 82.0 - 99.0 fL MCH 31.0 27.2 - 32.6 pg MCHC 36.5 (H) 31.5 - 35.5 g/dL RDW 15.3 (H) 11.5 - 14.5 % RDW-STDEV 47.2 37.1 - 48.7 fL PLATELETS 261 140 - 350 K/uL MPV 9.6 9.3 - 12.4 fL NEUTROPHILS 74 % LYMPHOCYTES 21 % MONOCYTES 4 % EOSINOPHILS 0 % BASOPHILS 0 % IMMATURE GRANULOCYTES 1 % NEUTROPHIL ABSOLUTE 10.21 (H) 1.90 - 7.00 K/uL LYMPHOCYTE ABSOLUTE 2.87 0.70 - 4.50 K/uL MONOCYTE ABSOLUTE 0.61 0.10 - 1.30 K/uL EOSINOPHIL ABSOLUTE 0.05 0.00 - 0.70 K/uL BASOPHILS ABSOLUTE 0.03 0.00 - 0.20 K/uL IMMATURE GRANULOCYTES ABSOLUTE 0.07 (H) 0.00 - 0.03 K/uL COMPREHENSIVE METABOLIC PANEL Result Value Ref Range SODIUM 126 (L) 136 - 145 mmol/L POTASSIUM CHLORIDE 89 (L) 98 - 107 mmol/L CO2 17 (L) 22 - 29 mmol/L CALCIUM 8.9 8.6 - 10.2 mg/dL BUN 7 6 - 20 mg/dL CREATININE 0.35 (L) 0.51 - 0.95 mg/dL GLUCOSE 319 (H) 74 - 99 mg/dL TOTAL PROTEIN 6.7 6.7 - 8.6 g/dL ALBUMIN 4.3 3.5 - 5.2 g/dL BILIRUBIN TOTAL 0.2 (L) 0.3 - 1.2 mg/dL ALKALINE PHOSPHATASE 88 35 - 104 U/L AST 28 <33 U/L ALT 14 <34 U/L GFR >60 >=60 mL/min/1.73 sq meter GFR, >60 >=60 mL/min/1.73 sq meter ANION GAP 20 (H) 8 - 16 mmol/L LIPASE Result Value Ref Range LIPASE 57 13 - 60 U/L AMYLASE Result Value Ref Range AMYLASE 56 28 - 100 U/L ETHANOL LEVEL Result Value Ref Range ETHANOL <10.00 <10.00 mg/dL ETHANOL % <0.01 %w/v URINALYSIS WITH REFLEX MICROSCOPIC Result Value Ref Range COLOR UA Pale Yellow Pale to Dark Yellow CLARITY UA Clear Clear SPECIFIC GRAVITY UA 1.027 1.003 - 1.035 PH UA 6.0 5.0 - 8.0 LEUKOCYTE ESTERASE UA Negative Negative NITRITE UA Negative Negative PROTEIN UA Negative Negative GLUCOSE UA 3+ (A) Negative KETONES UA Trace (A) Negative UROBILINOGEN UA Normal <2.0 mg/dL BILIRUBIN UA Negative Negative BLOOD UA Negative Negative POC CREATININE Result Value Ref Range POC CREATININE 0.40 (L) 0.50 - 1.00 mg/dL GFR >60 >=60 mL/min/1.73 sq meter GFR, >60 >=60 mL/min/1.73 sq meter FLOATLIGHT LOADING SUPERVISOR NAME CRISELDA ZUNIGA) POC GLUCOSE Result Value Ref Range POC GLUCOSE 249 (H) 74 - 99 mg/dL FLOATLIGHT LOADING SUPERVISOR NAME BROWN REED ECG personally reviewed and interpreted: Plain films personally reviewed and interpreted: CT A/P IMPRESSION: ?? Acute interstitial edematous pancreatitis. ?? Complex 4.8 cm right adnexal cyst. 4-6 week pelvic ultrasound follow-up recommended.. Assessment: Principal Problem: Acute on chronic pancreatitis Active Problems: Hypothyroidism Chylomicronemia syndrome Hypertriglyceridemia Type 2 diabetes mellitus without complication, with long-term current use of insulin GERD (gastroesophageal reflux disease) Plan: Lipase nl but CT w/ acute interstitial edematous pancreatitis and recent TG markedly elevated. NPO,aggressive hydration with NS, pain control with IV dilaudid w/ monitoring of vitals/resp status. Apheresis team will need consulted in AM. Not sure how quickly that will get moving and in meantime would like to start insulin drip. Pathway ordered and transfer to step down order placed. Added on tg level to admission labs Cont op meds for tg Cont synthroid, ppi DVTp with: lovenox Code status: full Dispo: home, > 2 mn Further plans and recommendations pending the above results. Maco Duque MD P: [phone] OR COMMUNICATIONS ENGINEER documented in this encounter Consult Notes * Nery Viramontes NP - 04/13/2019 9:25 AM CSTAssociated Order(s): IP CONSULT TO ENDOCRINOLOGY Images from the original note were not included. [facility] INPATIENT DIABETES CONSULT NOTE Name: Casandra Doss : 1975 Date: 04/13/2019 Room/Bed: 4236/1 Hospital Day: LOS: 1 day Reason for consult: Glycemic management HPI: Patient is a 43 yo female with PMH of type 2 diabetes mellitus, obesity, hypothyroidism, recurrent pancreatitis and hypertriglyceridemia. Patient receives weekly plasmapheresis under the care ofDr. Arteaga. Saturday night patient started developing abdominal pain; patient attempted clear liquids at home but her abdominal pain progressively got worse. Pain described as radiating to the back,with nausea and vomiting. Pain is constant with intermittent sharp pains, rated 6/10 this morning. We are consulted for glycemic management. ?? Regarding history of diabetes, patient takes basal/bolus insulin at home; Lantus 35 units BID; Novolog with meals, 20 with meals. REVIEW OF SYSTEMS: Constitutional: denies fevers, chills, sweats, fatigue, malaise, anorexia, weight loss Respiratory: denies cough, dyspnea, hemoptysis, stridor, wheeze, chest pain Cardiovascular: denies chest pain or discomfort, exertional chest pressure/discomfort, fatigue, pounding heart/chest, nausea, syncope, shortness of breath Gastrointestinal: abdominal pain, nausea and vomiting Genitourinary: denies dysuria, frequency, hematuria, hesitancy, nocturia, urinary incontinence Integementary, Breast: denies skin lesion(s), color change, lumps, masses, discharge, tenderness Hematologic, Oncologic, Lymphatic: denies: bruising, bleeding, lymphadenopathy, petechiae Musculoskeletal: denies: myalgia, arthralgia, stiff joints, neck pain, back pain, muscle weakness Neurological: denies blurry or disturbed vision, gait problems, dizziness, difficulty swallowing, muscle weakness, difficulty saying words Behavior, Psychologic: depression Endocrine: denies sudden changes in mood, temperature intolerance, polyuria, polydipsia, skin changes ASSESSMENT AND PLAN: Type 2 diabetes mellitus. Insulin drip initiated; will transition to 12 units Lantus and Q4 ldssi. NPO. Hypertriglyceridemia. 4 g fish oil, 160 mg fenofibrate, 500 niacin BID; per patient planned for plasmapheresis, sees Dr. Arteaga for care. Hypothyroidism. Continue 200 mcg Levothyroxine ?? Recommendations were discussed with Dr. Rudd, patient, hospitalist, and nursing staff. Please call or page with questions. Thank you for this consult. STELLA Bright CDE 7A - 7P [phone] cell # 7P - 7A [phone] pager MEDICATIONS: Current Facility-Administered Medications Medication Dose Route Frequency Provider Last Rate Last Dose ??? insulin glargine (LANTUS) injection 12 Units 12 Units subCUT Daily Nery Viramontes NP ??? insulin lispro (HumaLOG) variable dose injection subCUT q 4 hour Nery Viramontes NP ??? [DISCONTINUED] insulin glargine (LANTUS) injection 12 Units 12 Units subCUT See Admin Notes Nery Viramontes NP ??? LORazepam (ATIVAN) tablet 1 mg 1 mg Oral BID PRN Maco Duque MD 1 mg at 04/12/19 0802 ??? fenofibrate (LOFIBRA) tablet 160 mg 160 mg Oral Daily Maco Duque MD 160 mg at 802 ??? pantoprazole (PROTONIX) tablet 40 mg 40 mg Oral BID Maco Duque MD 40 mg at 04/13/19 09 ??? citalopram (CeleXA) tablet 40 mg 40 mg Oral Daily BEDTIME Maco Duque MD 40 mg at 04/12/192019 ??? traZODone (DESYREL) tablet 100 mg 100 mg Oral Daily BEDTIME Maco Duque MD 100 mg at 04/12/192020 ??? levothyroxine (SYNTHROID) tablet 200 mcg 200 mcg Oral Daily Maco Duque MD 200 mcg at 04/13/19 0610 ??? insulin regular (HUMULIN R,NOVOLIN R) 1 Units/mL in sodium chloride 0.9% infusion 0-25 Units/hrIV Titrate Maco Duque MD 3 mL/hr at 04/13/19 09 3 Units/hr at 04/13/19 09 ??? dextrose 5% - sodium chloride 0.9% infusion 40 mL/hr IV See Admin Notes Maco Duque MD ??? dextrose 50% (D50) syringe 12.5 Gram 12.5 Gram IV See Admin Notes Maco Duque MD ??? dextrose 50% (D50) syringe 25 Gram 25 Gram IV See Admin Notes Maco Duque MD ??? glucagon HCl 1 mg injection 1 mg 1 mg IM See Admin Notes Maco Duque MD ??? potassium Cl 20 mEq in NaCl 0.9% 1000 mL infusion IV Continuous Maco Duque MD ??? potassium Cl 20 mEq in dextrose 5% - NaCl 0.9% 1000 mL infusion IV Continuous Maco Duque MD 125 mL/hr at 04/13/19 0825 ??? HYDROmorphone (DILAUDID) 2 mg/mL injection 0.5 mg 0.5 mg IV q 2 hour PRN Maco Duque MD0.5 mg at 04/13/19 0926 ??? prochlorperazine (COMPAZINE) injection 10 mg 10 mg IV q 6 hour PRN Maco Duque MD ??? diphenhydrAMINE (BENADRYL) tablet 25 mg 25 mg Oral q 6 hour PRN Maco Duque MD 25 mg at106/13/18 1820 ??? bisacodyl (DULCOLAX) rectal suppository 10 mg 10 mg Rectal Daily PRN Maco Duque MD ??? docusate sodium (COLACE) capsule 100 mg 100 mg Oral BID PRN Maco Duque MD ??? naloxone (NARCAN) 0.4 mg/mL injection 0.1 mg 0.1 mg IV See Admin Notes Maco Duque MD ??? enoxaparin (LOVENOX) injection 40 mg 40 mg subCUT q 24 hour Maco Duque MD 40 mg at 04/13/19 0908 ??? atorvastatin (LIPITOR) tablet 80 mg 80 mg Oral Daily BEDTIME Maco Duque MD 80 mg at 04/12/19 2020 ??? ondansetron (ZOFRAN) 4 mg/2 mL injection 4 mg 4 mg IV q 6 hour PRN Laurie Casper MD ??? [DISCONTINUED] ondansetron (ZOFRAN ODT) tablet 4 mg 4 mg Sublingual q 6 hour PRN Maco Duque MD 4 mg at 04/12/19 0802 Facility-Administered Medications Ordered in Other Encounters Medication Dose Route Frequency Provider Last Rate Last Dose ??? calcium GLUCONATE 2,000 mg in sodium chloride 0.9% 120 mL IVPB 2,000 mg IV Intra-Proc Once Alize Arteaga MD ??? heparin injection 2,000 Units 2,000 Units IV ONCE Alize Arteaga MD ??? heparin injection 2,000 Units 2,000 Units IV ONCE Alize Arteaga MD ??? alteplase (CATHFLO ACTIVASE) 2 mg injection 2 mg 2 mg Dwell ONCE Alize Arteaga MD And ??? water sterile injection See Admin Instructions ONCE Alize Arteaga MD ??? alteplase (CATHFLO ACTIVASE) 2 mg injection 2 mg 2 mg Dwell ONCE Alize Arteaga MD And ??? water sterile injection See Admin Instructions ONCE Alize Arteaga MD ALLERGIES: Allergies Allergen Reactions ??? Green Pepper Hives ??? Adhesive Unknown ??? Aspartame Headache All artificial sweeteners. ??? Adhesive Tape-Silicones Hives PAST MEDICAL HISTORY: Past Medical History: Diagnosis Date ??? Anxiety ??? Chylomicronemia syndrome ??? Depression ??? Diabetes [...] TUNNELED VENOUS CATHETER PLACEMENT Right 09/29/2018 ??? CT ESOPHAGOGASTRODUODENOSCOPY TRANSORAL DIAGNOSTIC N/A 03/08/2018 ESOPHAGOGASTRODUODENOSCOPY performed by Ceasar Vega MD at [facility] FAMILY HISTORY: Family History Problem Relation Name Age of Onset ??? Diabetes Father ??? High Cholesterol Father ??? Hypertension Father ??? Stroke Mother ??? Heart Disease Mother ??? Thyroid Disease Mother ??? High Cholesterol Mother ??? Heart Disease Maternal Grandmother ??? Diabetes Maternal Grandmother ??? Diabetes Paternal Grandmother ??? Diabetes Mother SOCIAL HISTORY Social History Socioeconomic History ??? Marital status: Spouse name: Not on file ??? Number of children: Not on file ??? Years of education: Not on file ??? Highest education level: Not on file Occupational History Employer: [employer] Social Needs ??? Financial resource strain: Not hard at all ??? Food insecurity: Worry: Never true Inability: Never true ??? Transportation needs: Medical: No Non-medical: No Tobacco Use ??? Smoking status: Current Every Day Smoker Packs/day: 1.00 Years: 18.00 Pack years: 18.00 Types: Cigarettes ??? Smokeless tobacco: Never Used ??? Tobacco comment: nicotine patch requested Substance and Sexual Activity ??? Alcohol use: No Frequency: Never Binge frequency: Never ??? Drug use: No ??? Sexual activity: Yes Partners: Male Lifestyle ??? Physical activity: Days per week: Patient refused Minutes per session: Patient refused ??? Stress: Only a little Relationships ??? Social connections: Talks on phone: Three times a week Gets together: Three times a week Attends rastafari service: Never Active member of club or organization: No Attends meetings of clubs or organizations: Never Relationship status: ??? Intimate partner violence: Fear of current or ex partner: No Emotionally abused: No Physically abused: No Forced sexual activity: No Other Topics Concern ??? Not on file Social History Narrative Merged History Encounter PHYSICAL EXAM: BP 104/56 (BP Location: Right arm, Patient Position (BP): Supine) Pulse 89 Temp 98.7 ??F (37.1 ??C) (Oral) Resp 13 Ht 5' 5 (1.651 m) Wt 88 kg (194 lb) SpO2 95% BMI 32.28 kg/m?? GEN: lethargic HEENT: normocephalic, autramatic; sclera anicteric NECK: no lymphadenopathy present CV: RRR, no m/r/g; no LE edema, DP and PT pulsus present b/l RESP: CTAB ABD: hypoactive NEURO: A&O, nl gait SKIN: warm and dry FEET: nails without dystrophic changes LABS: Recent Labs 04/12/19 0016 04/12/19 0136 04/12/19 1138 04/13/19 0340 WBC 13.8* -- -- 9.6 HGB 13.5 -- -- 10.7* HCT 37.0 -- -- 34.0* PLT 261 -- -- 188 NA 126* -- 133* 134* K -- -- 3.8 3.9 CL 89* -- 99 101 CO2 17* -- 24 22 BUN 7 -- 5* 2* CREAT 0.35* 0.40* 0.50* 0.44* GLUCOSE 319* -- 244* 174* ALT 14 -- -- -- AST 28 -- -- -- Previous Hemoglobin A1C Results: HEMOGLOBIN A1C Date Value Ref Range Status 06/29/2018 7.7 (H) <5.7 % Final 05/16/2018 8.0 (H) <5.7 % Final 03/08/2018 8.7 (H) <5.7 % Final POC Glucose Range: Lab Results Component Value Date/Time GLUCPOC 127 (H) 04/13/2019 09:07 AM GLUCPOC 125 (H) 04/13/2019 08:14 AM GLUCPOC 142 (H) 04/13/2019 07:02 AM GLUCPOC 160 (H) 04/13/2019 06:07 AM GLUCPOC 174 (H) 04/13/2019 04:59 AM GLUCPOC 178 (H) 04/13/2019 04:06 AM GLUCPOC 172 (H) 04/13/2019 02:56 AM GLUCPOC 162 (H) 04/13/2019 02:03 AM GLUCPOC 166 (H) 04/13/2019 01:01 AM GLUCPOC 171 (H) 04/12/2019 11:55 PM OR COMMUNICATIONS ENGINEER Associated attestation - Blake Rudd MD - 04/14/2019 7:57 PM SENIOR COMMUNICATIONS ENGINEER Discussed with DATA ENTRY MANAGER. Agree with documentation. documented in this encounter ED Notes * Brown Reed RN - 04/12/2019 2:22 AM CST Medication given per MD order. Patient/family has been informed about benefits and any potential clinically significant side effects or other concerns regarding the administration of the drug they have just been given. OR COMMUNICATIONS ENGINEER * Brown Reed RN - 04/12/2019 2:18 AM CST Pt requesting more pain medication. MD aware. OR COMMUNICATIONS ENGINEER * Brown Reed RN - 04/12/2019 2:15 AM CST Griselda set up and charger notified of patient coming to floor. OR COMMUNICATIONS ENGINEER * Brown Reed RN - 04/12/2019 1:52 AM CST Pt to CT via stretcher. OR COMMUNICATIONS ENGINEER * Peg Rincon RN - 04/12/2019 1:24 AM CST Report given to CLAU Isabel. Pt denies further needs at this time. Assessment remains unchanged. Even unlabored breathing pattern noted. Call light within reach and encouraged to use. OR COMMUNICATIONS ENGINEER * Brown Reed RN - 04/12/2019 1:18 AM CST Report received from Francisco OLGUIN. Care assumed. OR COMMUNICATIONS ENGINEER * Peg Rincon RN - 04/12/2019 12:23 AM CST Pt came to ed c/o abdominal pain in upper quadrants. Pt stated pain started tonight and has increasingly gotten worse. Hx of pancreatitis. -fever/chills. +n/v. x3-4 episodes of vomit. +constipation/ pressure. Pt stated +pressure to upper quadrant that radiates around to her back. Aox4. Even unlabored breathing pattern. MD Maza at pt bedside. OR COMMUNICATIONS ENGINEER * Herrera Maza MD - 04/11/2019 11:08 PM CST HISTORY OF PRESENT ILLNESS Casandra Doss, a 43 y.o. female presents to the ED with a Chief Complaint of Abdominal Pain Subjective Documented Triage Chief Complaint: Abdominal Pain 12:22 AM: Casandra Doss is a 43 y.o. female with a history of recurrent pancreatitis, chylomicronemia syndrome, type 2 DM, GERD, HLD, hypertriglyceridemia, hypothyroidism, and PCOS, who presents to the Emergency Department with complaints of upper abdominal pain that wraps around to her back, whichstarted earlier this evening and has worsened since onset. Reports nausea, 3-4 episodes of vomiting, and constipation/pressure. Denies fevers, chills, or diarrhea. Surgical history includes appendectomy. She still has her gallbladder. Physician(s): Guerrero Middleton PA-C History provided by: The patient Arrived by: Private vehicle Arrived from: Home Abdominal Pain Pain location: LUQ and RUQ Pain radiates to: Back Pain severity: Moderate Onset quality: Gradual Timing: Constant Progression: Worsening Chronicity: Recurrent Associated symptoms: constipation, nausea and vomiting Associated symptoms: no chills, no cough, no diarrhea, no dysuria and no fever REVIEW OF SYSTEMS Review of Systems Constitutional: Negative for chills, diaphoresis and fever. HENT: Negative for facial swelling and nosebleeds. Eyes: Negative for pain and discharge. Respiratory: Negative for cough, choking and wheezing. Cardiovascular: Negative for leg swelling. Gastrointestinal: Positive for abdominal pain, constipation, nausea and vomiting. Negative for diarrhea. Genitourinary: Negative for decreased urine volume, difficulty urinating and dysuria. Musculoskeletal: Negative for back pain, gait problem and neck stiffness. Skin: Negative for pallor and rash. Neurological: Negative for dizziness, syncope and weakness. Psychiatric/Behavioral: Negative for agitation, sleep disturbance and suicidal ideas. The patient is not nervous/anxious. All other systems reviewed and are negative. PAST MEDICAL HISTORY REVIEWED MEDICAL: Patient has a past medical history of Anxiety, Chylomicronemia syndrome, Depression, Diabetes mellitus, DM type 2 (diabetes mellitus, type 2), Family history of diabetes mellitus (05/15/2011), Family history of early CAD (05/15/2011), GERD (gastroesophageal reflux disease), High triglycerides, History of gestational diabetes (05/15/2011), HLD (hyperlipidemia), Hypothyroidism, Metabolic syndrome (05/15/2011), Pancreatitis, PCOS (polycystic ovarian syndrome) (05/15/2011), and Smoker. She also has no past medical history of CRI (chronic renal insufficiency). SURGICAL: Patient has a past surgical history that includes hx hysterectomy; hx appendectomy; pr esophagogastroduodenoscopy transoral diagnostic (N/A, 03/08/2018); hx tunneled venous catheter placement (Right,09/29/2018); and hx tonsillectomy. FAMILY: Patient's family history includes Diabetes in [...] pancreatitis; Left upper quadrant pain; Acquired hypothyroidism; and Recurrent pancreatitis on their problem list. ALLERGIES Green pepper; Adhesive; Aspartame; and Adhesive tape-silicones HOME MEDICATIONS Current Discharge Medication List CONTINUE these medications which have NOT CHANGED Details empagliflozin (JARDIANCE) 10 mg tablet Take 1 Tablet (10 mg) by mouth daily security operations center analyst. Qty: 30 Tablet, Refills: 5 HYDROcodone-acetaminophen (NORCO) 5-325 mg tablet Take 1 Tablet by mouth every 6 hours as needed for Pain, Severe. Max Daily Amount: 4 Tablets Qty: 10 Tablet, Refills: 0 Associated Diagnoses: Generalized abdominal pain; Hypertriglyceridemia levothyroxine 200 mcg tablet Take 1 Tablet by mouth daily without food in the morning 30 minutes before eating anything. Qty: 30 Tablet, Refills: 5 Comments: Must make appointment for refills dicyclomine (BENTYL) 10 mg capsule Take 1 Capsule by mouth 4 times daily. Qty: 60 Capsule, Refills: 0 metFORMIN (GLUCOPHAGE) 500 mg tablet Take 2 Tablets by mouth 2 times daily with meals. Qty: 60 Tablet, Refills: 0 insulin aspart (NovoLOG) 100 unit/mL injection Inject 1 Units by subcutaneous injection. 25 units with each meal ondansetron (ZOFRAN ODT) 4 mg Tablet, Rapid Dissolve Dissolve 1 tablet on top of tongue, then swallow with saliva every 6 hours as needed for nausea/vomiting. Qty: 30 Tablet, Refills: 0 insulin glargine (LANTUS) 100 unit/mL injection Inject 35 Units by subcutaneous injection 2 times daily. 35 units in the AM 35 units in the PM pantoprazole (PROTONIX) 40 mg Tablet, Delayed Release [...] 40 mg by mouth daily at bedtime. fenofibrate (LOFIBRA) 160 mg Oral Tab Take 1 Tab by mouth daily. Qty: 90 Tab, Refills: 0 Objective PHYSICAL EXAM INITIAL VS BP: 136/85 (04/11/192314), Heart Rate: 108 bpm (04/11/192314), Resp: 18 (04/11/192314), Pulse: (!) 108 (04/11/192314), Temp: 98.2 ??F (36.8 ??C) (04/11/192314), Temp src: Oral (04/11/192314), SpO2: 98 % (04/11/192314), Height: 5' 5 (165.1 cm) (04/11/192314), Weight: 88 kg (194 lb) (04/11/192314), BMI (Calculated): 32.28 (04/11/192314) No LMP recorded. Patient has had a hysterectomy. Physical Exam Vitals signs and nursing note reviewed. Constitutional: General: She is not in acute distress. Appearance: She is not diaphoretic. Comments: Appears uncomfortable. HENT: Head: Normocephalic and atraumatic. Mouth/Throat: Pharynx: No oropharyngeal exudate. Eyes: General: No scleral icterus. Neck: Trachea: No tracheal deviation. Cardiovascular: Rate and Rhythm: Normal rate and regular rhythm. Heart sounds: Normal heart sounds. No murmur. No friction rub. No gallop. Pulmonary: Effort: No respiratory distress. Breath sounds: No wheezing or rales. Chest: Chest wall: No tenderness. Abdominal: General: Bowel sounds are normal. There is no distension. Palpations: Abdomen is soft. There is no mass. Tenderness: There is abdominal tenderness in the right upper quadrant and left upper quadrant. There is no guarding or rebound. Comments: Diffuse abdominal tenderness, worst to the upper quadrants bilaterally. Normal bowel sounds. Musculoskeletal: General: No tenderness. Lymphadenopathy: Cervical: No cervical adenopathy. Skin: Findings: No erythema or rash. Neurological: Mental Status: She is alert. Psychiatric: Judgment: Judgment normal. DIAGNOSTICS LAB: CBC WITH DIFFERENTIAL - Abnormal Result Value WBC 13.8 (*) RBC 4.35 HEMOGLOBIN 13.5 HEMATOCRIT 37.0 MCV 85.1 MCH 31.0 MCHC 36.5 (*) RDW 15.3 (*) RDW-STDEV 47.2 PLATELETS 261 MPV 9.6 NEUTROPHILS 74 LYMPHOCYTES 21 MONOCYTES 4 EOSINOPHILS 0 BASOPHILS 0 IMMATURE GRANULOCYTES 1 NEUTROPHIL ABSOLUTE 10.21 (*) LYMPHOCYTE ABSOLUTE 2.87 MONOCYTE ABSOLUTE 0.61 EOSINOPHIL ABSOLUTE 0.05 BASOPHILS ABSOLUTE 0.03 IMMATURE GRANULOCYTES ABSOLUTE 0.07 (*) COMPREHENSIVE METABOLIC PANEL - Abnormal SODIUM 126 (*) POTASSIUM CHLORIDE 89 (*) CO2 17 (*) CALCIUM 8.9 BUN 7 CREATININE 0.35 (*) GLUCOSE 319 (*) TOTAL PROTEIN 6.7 ALBUMIN 4.3 BILIRUBIN TOTAL 0.2 (*) ALKALINE PHOSPHATASE 88 AST 28 ALT 14 GFR >60 GFR, >60 ANION GAP 20 (*) URINALYSIS WITH REFLEX MICROSCOPIC - Abnormal COLOR UA Pale Yellow CLARITY UA Clear SPECIFIC GRAVITY UA 1.027 PH UA 6.0 LEUKOCYTE ESTERASE UA Negative NITRITE UA Negative PROTEIN UA Negative GLUCOSE UA 3+ (*) KETONES UA Trace (*) UROBILINOGEN UA Normal BILIRUBIN UA Negative BLOOD UA Negative POC CREATININE - Abnormal POC CREATININE 0.40 (*) GFR >60 GFR, >60 FLOATLIGHT LOADING SUPERVISOR NAME CRISELDA ZUNIGA (AMRBEEN) POC GLUCOSE - Abnormal POC GLUCOSE 249 (*) FLOATLIGHT LOADING SUPERVISOR NAME BROWN REED LIPASE - Normal LIPASE 57 AMYLASE - Normal AMYLASE 56 ETHANOL LEVEL ETHANOL <10.00 ETHANOL % <0.01 RADIOLOGY: CT ABDOMEN PELVIS W CONTRAST Radiologist Impression IMPRESSION: Acute interstitial edematous pancreatitis. Complex 4.8 cm right adnexal cyst. 4-6 week pelvic ultrasound follow-up recommended.. DICTATION LOCATION: Location 4 CT ABDOMEN PELVIS W CONTRAST EKG: NSR, nl axis, VR of 95, no significant ST segment changes. PROCEDURES Procedures MEDICAL DECISION MAKING AND PLAN OF CARE 12:22 AM: Patient seen and examined by me. Plan to check labs, EKG, and CT abdomen pelvis. Will give fluid bolus, morphine, and Zofran. 12:48 AM: Discussed case with Dr. Tapia [facility] Hospitalist. Plan to admit patient to medical floor. Patient made aware of plan for admission. She is agreeable. ED provider and ED nurse verbally discussed patient plan of care at this time. MDM Summary Statement: The patient presented to the emergency room with abdominal pain. She has a history of complicated pancreatitis. She is followed by the [facility]. Her amylase and lipase were unremarkable, but on CAT scan there was evidence of pancreatitis. She was significantly uncomfortable in the emergency roomand was given multiple doses of pain medications. She was admitted to the floor in stable condition. I discussed with Dr. Tapia who was present in the ER I have reviewed previous: notes I have reviewed current: labs, ECG and imaging I have reviewed nursing notes related to past medical history, social history, and review of systems and agree, unless otherwise noted. Consults: hospitalist Medications Administered During the ED Stay from 04/11/2019 2308 to 04/12/2019 0300 Date/Time Order Dose Route Action 04/12/2019 0025 sodium chloride 0.9% bolus solution 1,000 mL 1,000 mL IV Bolus 04/12/2019 0030 morphine injection 5 mg 5 mg IV Given 04/12/2019 0030 ondansetron (ZOFRAN) 4 mg/2 mL injection 4 mg 4 mg IV Given 04/12/2019 0122 morphine injection 5 mg 5 mg IV Given 04/12/2019 0207 iopamidol (ISOVUE-300) 61 % injection 100 mL 100 mL IV Contrast Given 04/12/2019 0207 sodium chloride flush injection 10 mL 10 mL IV Given 04/12/2019 0220 morphine injection 5 mg 5 mg IV Given Current Discharge Medication List CONTINUE these medications which have NOT CHANGED Details empagliflozin (JARDIANCE) 10 mg tablet Take 1 Tablet (10 mg) by mouth daily security operations center analyst. Qty: 30 Tablet, Refills: 5 HYDROcodone-acetaminophen (NORCO) 5-325 mg tablet Take 1 Tablet by mouth every 6 hours as needed for Pain, Severe. Max Daily Amount: 4 Tablets Qty: 10 Tablet, Refills: 0 Associated Diagnoses: Generalized abdominal pain; Hypertriglyceridemia levothyroxine 200 mcg tablet Take 1 Tablet by mouth daily without food in the morning 30 minutes before eating anything. Qty: 30 Tablet, Refills: 5 Comments: Must make appointment for refills dicyclomine (BENTYL) 10 mg capsule Take 1 Capsule by mouth 4 times daily. Qty: 60 Capsule, Refills: 0 metFORMIN (GLUCOPHAGE) 500 mg tablet Take 2 Tablets by mouth 2 times daily with meals. Qty: 60 Tablet, Refills: 0 insulin aspart (NovoLOG) 100 unit/mL injection Inject 1 Units by subcutaneous injection. 25 units with each meal ondansetron (ZOFRAN ODT) 4 mg Tablet, Rapid Dissolve Dissolve 1 tablet on top of tongue, then swallow with saliva every 6 hours as needed for nausea/vomiting. Qty: 30 Tablet, Refills: 0 insulin glargine (LANTUS) 100 unit/mL injection Inject 35 Units by subcutaneous injection 2 times daily. 35 units in the AM 35 units in the PM pantoprazole (PROTONIX) 40 mg Tablet, Delayed Release [...] 40 mg by mouth daily at bedtime. fenofibrate (LOFIBRA) 160 mg Oral Tab Take 1 Tab by mouth daily. Qty: 90 Tab, Refills: 0 LAST VS BP: 121/76 (04/12/19 0230), Heart Rate: 108 bpm (04/11/19 2315), Resp: 16 (04/12/19 0230), Pulse: 83 (04/12/19 0230), Temp: 98.2 ??F (36.8 ??C) (04/11/19 2315), Temp src: Oral (04/11/19 2315), SpO2: 93 % (04/12/19 0230) CLINICAL IMPRESSION Final diagnoses: [K85.90, K86.1] Acute on chronic pancreatitis (Primary) DISPOSITION, EDUCATION AND MEDICATION RECONCILIATION Medications reconciled. See after visit summary for patient education on discharged patients. ED Disposition ED Disposition Condition User Date/Time Comment Admit Stable Herrera Maza MD [place] Apr 12, 2019 1:04 AM ATTESTATION STATEMENTS This note has been prepared by Savana Lopez acting as a scribe for Dr. Herrera Maza on 04/12/2019 at 1:12 AM. The scribe's documentation has been prepared under my direction and personally reviewed by me, Shaunna, in its entirety on 04/12/19 at 3:43 AM. I confirm that the note above accurately reflects all work, treatment, procedures, and medical decision making performed by me. OR COMMUNICATIONS ENGINEER documented in this encounter Miscellaneous Notes * Care Plan - Thuy Tompkins RN - 04/16/2019 4:15 PM CST Casandra Doss will be discharged via ambulatory to home. Casandra Doss is accompanied by family member(s) and will be transported via private vehicle. Discharge instructions given along with prescription. PIV dc'd. Family at bedside. Pain manageable.Denies needs. Verbalized understanding. Transport called. OR COMMUNICATIONS ENGINEER * Care Plan - Yady Medel, CLAU - 04/16/2019 6:33 AM CST Receiving dilaudid q4 and PO analgesics q4 Slept majority of shift since arrival from previous unit Up SBA UOP per hat Charisse diest Informed pt of changes to blood glucose monitoring Pt agreeable to plan of care OR COMMUNICATIONS ENGINEER * Care Plan - Yady Medel, CLAU - 04/16/2019 2:50 AM CST Undress and Assess performed by the following two coworkers:CLAU Conteh and Brooks Mcbride Admission or upon transfer to: [facility] ~~~~~~~~~~~~~~~~~~~~~~~~~~~~ Is the patient a paraplegic/quadriplegic? no Does the patient have new purple/sissy/dark red over bony prominences? no Does the patient have an ostomy? no Is the length of stay >2 weeks? no ~If ANY answer 'yes'- please consult Wound Care~ Patient does not have skin breakdown. Location/ Description of breakdown: Wound care consult was not initiated. Is there skin breakdown under any Bilingual Office Assistant (splint, ETT ha, c-collar)? If yes, please describe: n/a Are there currently any skin protective dressings in place? If yes, please describe skin under dressing: n/a Protective Dressings Applied to Sacrum and Heels (Mepilex) as per Pathway? No OR COMMUNICATIONS ENGINEER * Care Plan - Bart Daniels RN - 04/15/2019 6:33 AM CST End of Shift Note: Neuro: alert and oriented x 4. Receiving Dilaudid Q 2 PRN for abdominal pain Resp: room air to 1L nasal cannula while sleeping. CV: sinus rhythm: 70-80, SBP: 100s GI: /: gets up to the bathroom. Skin: no skin issues OR COMMUNICATIONS ENGINEER * Care Plan - Puja Holden LMSW - 04/13/2019 11:29 AM CST Clinical documentation reviewed. Comprehensive Discharge Planning Risk Assessment was completed. Readmission Risk (patient becomes high risk with a score of 8 or greater) 5 Total Score (Last filed: Apr 13, 2019 0600) 5 Prior Hospitalizations Total Score of 9 or below does not identify immediate needs for discharge. Age Score: 0 Disability Score: 0 Prior Living Status Score: {0 Mobility Limitation Score: 0 TOTAL SCORE: [address] consult if needs for discharge are identified. Care Management will continue to follow for discharge planning. LOBO Reyes, DACIA [phone] Day 1 - Current ([facility]: Adult and Obstetrics) Patient, family, or healthcare designee is participating in individual care plan process Outcome: Met Problem: Discharge Planning Goal: Identify discharge needs upon admission and through discharge Description Outcome: Progressing OR COMMUNICATIONS ENGINEER documented in this encounter Plan of Treatment Upcoming Encounters Date Type Department Care Team (Late st Contact Info) Description 09/14/2024 3:00 PM CDT Office Visit [facility] [place] [phone] [place] [address] Marlys Mayer MD [address] [place] [address] documented as of this encounter Procedures Procedure Name Priority Date/Time Associated Diagnosis Comments POC GLUCOSE Routine 04/16/2019 1:37 PM SENIOR COMMUNICATIONS ENGINEER POC GLUCOSE Routine 04/16/2019 9:02 AM SENIOR COMMUNICATIONS ENGINEER POC GLUCOSE Routine 04/16/2019 1:01 AM SENIOR COMMUNICATIONS ENGINEER POC GLUCOSE Routine 04/16/2019 12:32 AM SENIOR COMMUNICATIONS ENGINEER POC GLUCOSE Routine 04/15/2019 7:42 PM SENIOR COMMUNICATIONS ENGINEER POC GLUCOSE Routine 04/15/2019 4:26 PM SENIOR COMMUNICATIONS ENGINEER POC GLUCOSE Routine 04/15/2019 11:39 AM SENIOR COMMUNICATIONS ENGINEER POC GLUCOSE Routine 04/15/2019 7:19 AM SENIOR COMMUNICATIONS ENGINEER POC GLUCOSE Routine 04/15/2019 3:56 AM SENIOR COMMUNICATIONS ENGINEER TRIGLYCERIDE Routine 04/15/2019 3:22 AM SENIOR COMMUNICATIONS ENGINEER Hypertriglyceridemia Mixed hyperlipidemia MAGNESIUM LEVEL Routine 04/15/2019 3:22 AM SENIOR COMMUNICATIONS ENGINEER BASIC METABOLIC PANEL Routine 04/15/2019 3:22 AM SENIOR COMMUNICATIONS ENGINEER POC GLUCOSE Routine 04/15/2019 1:10 AM SENIOR COMMUNICATIONS ENGINEER POC GLUCOSE Routine 04/14/2019 9:23 PM SENIOR COMMUNICATIONS ENGINEER POC GLUCOSE Routine 04/14/2019 8:13 PM SENIOR COMMUNICATIONS ENGINEER POC GLUCOSE Routine 04/14/2019 5:13 PM SENIOR COMMUNICATIONS ENGINEER IR VENOUS ACCESS Routine 04/14/2019 3:59 PM SENIOR COMMUNICATIONS ENGINEER POC GLUCOSE Routine 04/14/2019 11:54 AM SENIOR COMMUNICATIONS ENGINEER TRIGLYCERIDE Stat 04/14/2019 9:24 AM SENIOR COMMUNICATIONS ENGINEER Acute on chronic pancreatitis POC GLUCOSE Routine 04/14/2019 7:51 AM SENIOR COMMUNICATIONS ENGINEER POC GLUCOSE Routine 04/14/2019 4:03 AM SENIOR COMMUNICATIONS ENGINEER POC GLUCOSE Routine 04/14/2019 12:19 AM SENIOR COMMUNICATIONS ENGINEER POC GLUCOSE Routine 04/13/2019 8:57 PM SENIOR COMMUNICATIONS ENGINEER POC GLUCOSE Routine 04/13/2019 8:12 PM SENIOR COMMUNICATIONS ENGINEER POC GLUCOSE Routine 04/13/2019 4:02 PM SENIOR COMMUNICATIONS ENGINEER POC GLUCOSE Routine 04/13/2019 12:12 PM SENIOR COMMUNICATIONS ENGINEER POC GLUCOSE Routine 04/13/2019 11:06 AM SENIOR COMMUNICATIONS ENGINEER POC GLUCOSE Routine 04/13/2019 10:07 AM SENIOR COMMUNICATIONS ENGINEER POC GLUCOSE Routine 04/13/2019 9:07 AM SENIOR COMMUNICATIONS ENGINEER POC GLUCOSE Routine 04/13/2019 8:14 AM SENIOR COMMUNICATIONS ENGINEER POC GLUCOSE Routine 04/13/2019 7:02 AM SENIOR COMMUNICATIONS ENGINEER POC GLUCOSE Routine 04/13/2019 6:07 AM SENIOR COMMUNICATIONS ENGINEER POC GLUCOSE Routine 04/13/2019 4:59 AM SENIOR COMMUNICATIONS ENGINEER POC GLUCOSE Routine 04/13/2019 4:06 AM SENIOR COMMUNICATIONS ENGINEER CBC WITHOUT DIFFERENTIAL Routine 04/13/2019 3:40 AM SENIOR COMMUNICATIONS ENGINEER MAGNESIUM LEVEL Routine 04/13/2019 3:40 AM SENIOR COMMUNICATIONS ENGINEER BASIC METABOLIC PANEL Routine 04/13/2019 3:40 AM SENIOR COMMUNICATIONS ENGINEER POC GLUCOSE Routine 04/13/2019 2:56 AM SENIOR COMMUNICATIONS ENGINEER POC GLUCOSE Routine 04/13/2019 2:03 AM SENIOR COMMUNICATIONS ENGINEER POC GLUCOSE Routine 04/13/2019 1:01 AM SENIOR COMMUNICATIONS ENGINEER POC GLUCOSE Routine 04/12/2019 11:55 PM SENIOR COMMUNICATIONS ENGINEER POC GLUCOSE Routine 04/12/2019 11:01 PM SENIOR COMMUNICATIONS ENGINEER POC GLUCOSE Routine 04/12/2019 10:05 PM SENIOR COMMUNICATIONS ENGINEER POC GLUCOSE Routine 04/12/2019 8:53 PM SENIOR COMMUNICATIONS ENGINEER POC GLUCOSE Routine 04/12/2019 7:59 PM SENIOR COMMUNICATIONS ENGINEER POC GLUCOSE Routine 04/12/2019 7:05 PM SENIOR COMMUNICATIONS ENGINEER POC GLUCOSE Routine 04/12/2019 6:14 PM SENIOR COMMUNICATIONS ENGINEER POC GLUCOSE Routine 04/12/2019 5:35 PM SENIOR COMMUNICATIONS ENGINEER POC GLUCOSE Routine 04/12/2019 4:14 PM SENIOR COMMUNICATIONS ENGINEER POC GLUCOSE Routine 04/12/2019 2:57 PM SENIOR COMMUNICATIONS ENGINEER POC GLUCOSE Routine 04/12/2019 2:08 PM SENIOR COMMUNICATIONS ENGINEER POC GLUCOSE Routine 04/12/2019 12:21 PM SENIOR COMMUNICATIONS ENGINEER TRIGLYCERIDE Routine 04/12/2019 11:38 AM SENIOR COMMUNICATIONS ENGINEER BASIC METABOLIC PANEL Routine 04/12/2019 11:38 AM SENIOR COMMUNICATIONS ENGINEER POC GLUCOSE Routine 04/12/2019 10:39 AM SENIOR COMMUNICATIONS ENGINEER POC GLUCOSE Routine 04/12/2019 8:08 AM SENIOR COMMUNICATIONS ENGINEER POC GLUCOSE Routine 04/12/2019 6:49 AM SENIOR COMMUNICATIONS ENGINEER POC GLUCOSE Stat 04/12/2019 2:12 AM SENIOR COMMUNICATIONS ENGINEER CT ABDOMEN PELVIS W CONTRAST Stat 04/12/2019 2:06 AM SENIOR COMMUNICATIONS ENGINEER POC CREATININE Stat 04/12/2019 1:36 AM SENIOR COMMUNICATIONS ENGINEER URINALYSIS W/REFLEX MICROSCOPIC Stat 04/12/2019 12:25 AM SENIOR COMMUNICATIONS ENGINEER CBC WITH DIFFERENTIAL Stat 04/12/2019 12:16 AM SENIOR COMMUNICATIONS ENGINEER LIPASE Stat 04/12/2019 12:16 AM SENIOR COMMUNICATIONS ENGINEER AMYLASE Stat 04/12/2019 12:16 AM SENIOR COMMUNICATIONS ENGINEER ETHANOL LEVEL Stat 04/12/2019 12:16 AM SENIOR COMMUNICATIONS ENGINEER COMPREHENSIVE METABOLIC PANEL Stat 04/12/2019 12:16 AM SENIOR COMMUNICATIONS ENGINEER EKG 12-LEAD Stat 04/11/2019 11:55 PM SENIOR COMMUNICATIONS ENGINEER documented in this encounter Results * (ABNORMAL) POC GLUCOSE (04/16/2019 1:37 PM SENIOR COMMUNICATIONS ENGINEER) GLUCOSE POC 168(H) 74 - 99 mg/dL 04/16/2019 1:37 PM SENIOR COMMUNICATIONS ENGINEER [facility] LABORATORY [facility] FLOATLIGHT LOADING SUPERVISOR NAME POC THUY TOMPKINS 04/16/2019 1:37 PM SENIOR COMMUNICATIONS ENGINEER [facility] LABORATORY [facility] Blood, whole 04/16/2019 1:37 PM SENIOR COMMUNICATIONS ENGINEER 04/16/2019 1:46 PM SENIOR COMMUNICATIONS ENGINEER Jeffry Salazar MD POINT OF CARE TESTJERONIMO Serrano Performing Organization Address [facility]/ZIP Co de Phone Number [facility]# [id number] [address] [place] [address] * (ABNORMAL) POC GLUCOSE (04/16/2019 9:02 AM SENIOR COMMUNICATIONS ENGINEER) GLUCOSE POC 155(H) 74 - 99 mg/dL 04/16/2019 9:02 AM SENIOR COMMUNICATIONS ENGINEER [facility] COMMENT, GLU POC Notified RN/MD 04/16/2019 9:02 AM SENIOR COMMUNICATIONS ENGINEER [facility] FLOATLIGHT LOADING SUPERVISOR NAME POC DAVEY MACDONALD 04/16/2019 9:02 AM SENIOR COMMUNICATIONS ENGINEER [facility] Blood, whole 04/16/2019 9:02 AM SENIOR COMMUNICATIONS ENGINEER 04/16/2019 9:10 AM SENIOR COMMUNICATIONS ENGINEER Jeffry Salazar MD POINT OF CARE TESTJERONIMO Serrano Performing Organization Address [facility] Co de Phone Number [facility] [employer] [facility]# [id number] [address] [place] [address] * (ABNORMAL) POC GLUCOSE (04/16/2019 1:01 AM SENIOR COMMUNICATIONS ENGINEER) GLUCOSE POC 161(H) 74 - 99 mg/dL 04/16/2019 1:01 AM SENIOR COMMUNICATIONS ENGINEER [facility] COMMENT, GLU POC Notified RN/MD 04/16/2019 1:01 AM SENIOR COMMUNICATIONS ENGINEER [facility] FLOATLIGHT LOADING SUPERVISOR NAME POC CHRISTINE GAFFNEY 04/16/2019 1:01 AM SENIOR COMMUNICATIONS ENGINEER [facility] Blood, whole 04/16/2019 1:01 AM SENIOR COMMUNICATIONS ENGINEER 04/16/2019 1:12 AM SENIOR COMMUNICATIONS ENGINEER Jeffry Salazar MD POINT OF CARE TESTJERONIMO Serrano [facility] [employer] [facility] CLIA# [id number] [address] [place] [address] * (ABNORMAL) POC GLUCOSE (04/16/2019 12:32 AM SENIOR COMMUNICATIONS ENGINEER) GLUCOSE POC 175(H) 74 - 99 mg/dL 04/16/2019 12:32 AM SENIOR COMMUNICATIONS ENGINEER [facility] LABORATORY [facility] FLOATLIGHT LOADING SUPERVISOR NAME POC BART DANIELS 04/16/2019 12:32 AM SENIOR COMMUNICATIONS ENGINEER [facility] LABORATORY SERVICES [facility] Blood, whole 04/16/2019 12:3 2 AM SENIOR COMMUNICATIONS ENGINEER 04/16/2019 12:44 AM SENIOR COMMUNICATIONS ENGINEER Jeffry Salazar MD POINT OF CARE FLY Maggie Performing Organization Address [facility] Co de Phone Number [facility] LABORATORY [facility] CLIA# [id number] [address] [place] [address] * (ABNORMAL) POC GLUCOSE (04/15/2019 7:42 PM SENIOR COMMUNICATIONS ENGINEER) GLUCOSE POC 278(H) 74 - 99 mg/dL 04/15/2019 7:42 PM SENIOR COMMUNICATIONS ENGINEER [facility] LABORATORY SERVICES [facility] COMMENT, GLU POC Notified RN/MD 04/15/2019 7:42 PM SENIOR COMMUNICATIONS ENGINEER [facility] LABORATORY SERVICES [facility] FLOATLIGHT LOADING SUPERVISOR NAME POC HIRAM SEPULVEDA 04/15/2019 7:42 PM SENIOR COMMUNICATIONS ENGINEER [facility] LABORATORY SERVICES [facility] Blood, whole 04/15/2019 7:42 PM SENIOR COMMUNICATIONS ENGINEER 04/15/2019 8:00 PM SENIOR COMMUNICATIONS ENGINEER Jeffry Salazar MD POINT OF CARE VINICIUSJERONIMO Maggie Performing Organization Address [facility]/ZIP Co de Phone Number [facility] [employer] [facility] CLIA# [id number] [address] [place] [address] * (ABNORMAL) POC GLUCOSE (04/15/2019 4:26 PM SENIOR COMMUNICATIONS ENGINEER) GLUCOSE POC 135(H) 74 - 99 mg/dL 04/15/2019 4:26 PM SENIOR COMMUNICATIONS ENGINEER [facility] FLOATLIGHT LOADING SUPERVISOR NAME POC GENOVEVA ALBERTS 04/15/2019 4:26 PM [facility] Blood, whole 04/15/2019 4:26 PM SENIOR COMMUNICATIONS ENGINEER 04/15/2019 4:32 PM SENIOR COMMUNICATIONS ENGINEER Jeffry Salazar MD POINT OF CARE TESTIN Maggie Performing Organization Address [facility] Co de Phone Number [facility] [employer] [facility]# [id number] [address] [place] [address] * (ABNORMAL) POC GLUCOSE (04/15/2019 11:39 AM SENIOR COMMUNICATIONS ENGINEER) GLUCOSE POC 107(H) 74 - 99 mg/dL 04/15/2019 11:39 AM SENIOR COMMUNICATIONS ENGINEER [facility] LABORAT[facility] COMMENT, GLU POC Notified RN/MD 04/15/2019 11:39 AM SENIOR COMMUNICATIONS ENGINEER [facility] LABORATORY [facility] FLOATLIGHT LOADING SUPERVISOR NAME POC GENOVEVA ALBERTS 04/15/2019 11:39 AM SENIOR COMMUNICATIONS ENGINEER [facility]AT[facility] Blood, whole 04/15/2019 11:3 9 AM SENIOR COMMUNICATIONS ENGINEER 04/15/2019 12:00 PM SENIOR COMMUNICATIONS ENGINEER Jeffry Salazar MD POINT OF CARE TESTJERONIMO Serrano Performing Organization Address [facility] Co de Phone Number [facility] [employer] [facility]# [id number] [address] [place] [address] * (ABNORMAL) POC GLUCOSE (04/15/2019 7:19 AM SENIOR COMMUNICATIONS ENGINEER) GLUCOSE POC 117(H) 74 - 99 mg/dL 04/15/2019 7:19 AM SENIOR COMMUNICATIONS ENGINEER [facility] LABORAT[facility] COMMENT, GLU POC Notified RN/MD 04/15/2019 7:19 AM SENIOR COMMUNICATIONS ENGINEER [facility] FLOATLIGHT LOADING SUPERVISOR NAME POC FLAKO BELLA 04/15/2019 7:19 AM SENIOR COMMUNICATIONS ENGINEER [facility]AT[facility] Blood, whole 04/15/2019 7:19 AM SENIOR COMMUNICATIONS ENGINEER 04/15/2019 7:28 AM SENIOR COMMUNICATIONS ENGINEER Jeffry Salazar MD POINT OF CARE FLY Serrano Performing Organization Address [facility] Co de Phone Number [facility]# [id number] [address] [place] [address] * (ABNORMAL) POC GLUCOSE (04/15/2019 3:56 AM SENIOR COMMUNICATIONS ENGINEER) GLUCOSE POC 133(H) 74 - 99 mg/dL 04/15/2019 3:56 AM SENIOR COMMUNICATIONS ENGINEER [facility] LABORATORY [facility] FLOATLIGHT LOADING SUPERVISOR NAME POC BART DANIELS 04/15/2019 3:56 AM SENIOR COMMUNICATIONS ENGINEER [facility] [employer] [facility] Blood, whole 04/15/2019 3:56 AM SENIOR COMMUNICATIONS ENGINEER 04/15/2019 4:05 AM SENIOR COMMUNICATIONS ENGINEER Jeffry Salazar MD POINT OF CARE FLY Serrano Performing Organization Address [facility] de Phone Number [facility] [employer] [facility]# [id number] [address] [place] [address] * (ABNORMAL) TRIGLYCERIDE (04/15/2019 3:22 AM SENIOR COMMUNICATIONS ENGINEER) TRIGLYCERIDE 314(H) <150 mg/dL 04/15/2019 9:40 AM SENIOR COMMUNICATIONS ENGINEER [facility] [employer] [facility] Blood Venipuncture / Unknown 04/15/2019 3:22 AM SENIOR COMMUNICATIONS ENGINEER 04/15/2019 3:28 AM SENIOR COMMUNICATIONS ENGINEER Narrative [facility] LABORATORY [facility] - 04/15/2019 9:40 AM SENIOR COMMUNICATIONS ENGINEER TRIGLYCERIDES ? mg/dL Normal ?< 150 Borderline High ?150 - 199 High ? 200 - 499 Very High ? >= 500 Based on AHA/NCEP Guidelines. Alize Arteaga MD CHEMISTRY ORDER OSVALDO [facility] [employer] [facility] CLIA# [id number] [address] [place] [address] * MAGNESIUM LEVEL (04/15/2019 3:22 AM SENIOR COMMUNICATIONS ENGINEER) MAGNESIUM 1.7 1.6 - 2.6 mg/dL 04/15/2019 4:13 AM [facility] [employer] [facility] Blood Venipuncture / Unknown 04/15/2019 3:22 AM SENIOR COMMUNICATIONS ENGINEER 04/15/2019 3:28 AM SENIOR COMMUNICATIONS ENGINEER Jeffry Salazar MD CHEMISTRY ORDERABLES [facility] [employer] [facility] CLIA# [id number] [address] [place] [address] * (ABNORMAL) BASIC METABOLIC PANEL (04/15/2019 3:22 AM SENIOR COMMUNICATIONS ENGINEER) SODIUM 139 136 - 145 mmol/L 04/15/2019 4:13 AM [facility] LABORATORY [facility] - [facility] POTASSIUM 3.7 3.5 - 5.0 mmol/L 04/15/2019 4:13 AM [facility] - . [facility] CHLORIDE 105 98 - 107 mmol/L 04/15/2019 4:13 AM [facility] [facility] - . [facility] CO2 26 22 - 29 mmol/L 04/15/2019 4:13 AM [facility] LAB[facility] - . [facility] CALCIUM 8.4(L) 8.6 - 10.2 mg/dL 04/15/2019 4:13 AM [facility] - [facility] BUN 3(L) 6 - 20 mg/dL 04/15/2019 4:13 AM [facility] LAB[facility]AT[facility] - . [place] CREATININE 0.54 0.51 - 0.95 mg/dL 04/15/2019 4:13 AM [facility] - . [facility] GLUCOSE 136(H) 74 - 99 mg/dL 04/15/2019 4:13 AM [facility] - [facility] GFR >60 >=60 mL/min/1.7 3 sq meter 04/15/2019 4:13 AM [facility] [employer] [facility] Comment: eGFR has not been [...] GFR, >60 >=60 mL/min/1.7 3 sq meter 04/15/2019 4:13 AM [facility] [employer] [facility] ANION GAP 8 8 - 16 mmol/L 04/15/2019 4:13 AM [facility] [employer] [facility] Blood Venipuncture / Unknown 04/15/2019 3:22 AM SENIOR COMMUNICATIONS ENGINEER 04/15/2019 3:28 AM SENIOR COMMUNICATIONS ENGINEER Jeffry Salazar MD CHEMISTRY ORDERABLES Performing Organization Address City/[facility]/ZIP Co de Phone Number [facility] [employer] [facility]# [id number] [address] [place] [address] * (ABNORMAL) POC GLUCOSE (04/15/2019 1:10 AM SENIOR COMMUNICATIONS ENGINEER) [facility] Signature GLUCOSE POC 120(H) 74 - 99 mg/dL 04/15/2019 1:10 AM [facility] [employer] [facility] FLOATLIGHT LOADING SUPERVISOR NAME OLLIE BART DANIELS 04/15/2019 1:10 AM [facility] Blood, whole 04/15/2019 1:10 AM SENIOR COMMUNICATIONS ENGINEER 04/15/2019 1:20 AM SENIOR COMMUNICATIONS ENGINEER Jeffry Salazar MD POINT OF CARE TESTIN G Performing Organization Address [facility]/ZIP Co de Phone Number [facility] [employer] [id number] [address] [place] [address] * (ABNORMAL) POC GLUCOSE (04/14/2019 9:23 PM SENIOR COMMUNICATIONS ENGINEER) GLUCOSE POC 191(H) 74 - 99 mg/dL 04/14/2019 9:23 PM SENIOR COMMUNICATIONS ENGINEER [facility] LABORATORY SERVICES - [facility] FLOATLIGHT LOADING SUPERVISOR NAME POC BART DANIELS 04/14/2019 9:23 PM SENIOR COMMUNICATIONS ENGINEER [facility] LABORATORY SERVICES [facility] Blood, whole 04/14/2019 9:23 PM SENIOR COMMUNICATIONS ENGINEER 04/14/2019 9:34 PM SENIOR COMMUNICATIONS ENGINEER Jeffry Salazar MD POINT OF CARE TESTJERONIMO Serrano [facility] LABORATORY [facility] CLIA# [id number] [address] [place] [address] * (ABNORMAL) POC GLUCOSE (04/14/2019 8:13 PM SENIOR COMMUNICATIONS ENGINEER) GLUCOSE POC 165(H) 74 - 99 mg/dL 04/14/2019 8:13 PM SENIOR COMMUNICATIONS ENGINEER [facility] LABORATORY SERVICES [facility] COMMENT, GLU POC Notified RN/MD 04/14/2019 8:13 PM SENIOR COMMUNICATIONS ENGINEER [facility] LABORATORY SERVICES [facility] FLOATLIGHT LOADING SUPERVISOR NAME POC DEIDRE HSIEH 04/14/2019 8:13 PM SENIOR COMMUNICATIONS ENGINEER [facility] LABORATORY SERVICES [facility] Blood, whole 04/14/2019 8:13 PM SENIOR COMMUNICATIONS ENGINEER 04/14/2019 9:05 PM SENIOR COMMUNICATIONS ENGINEER Jeffry Salazar MD POINT OF CARE TESTJERONIMO Serrano [facility] LABORATORY [facility] CLIA# [id number] [address] [address] * (ABNORMAL) POC GLUCOSE (04/14/2019 5:13 PM SENIOR COMMUNICATIONS ENGINEER) GLUCOSE POC 189(H) 74 - 99 mg/dL 04/14/2019 5:13 PM SENIOR COMMUNICATIONS ENGINEER [facility] LABORATORY SERVICES [facility] FLOATLIGHT LOADING SUPERVISOR NAME POC GENOVEVA ALBERTS 04/14/2019 5:13 PM SENIOR COMMUNICATIONS ENGINEER [facility] Blood, whole 04/14/2019 5:13 PM SENIOR COMMUNICATIONS ENGINEER 04/14/2019 5:21 PM SENIOR COMMUNICATIONS ENGINEER Jeffry Salazar MD POINT OF CARE TESTIN G [facility]# [id number] [address] [place] [address] * IR VENOUS ACCESS (04/14/2019 3:59 PM SENIOR COMMUNICATIONS ENGINEER) Anatomical Region Laterality Modality X-Ray Angiograph y 04/14/2019 3:59 PM SENIOR COMMUNICATIONS ENGINEER Impressions 04/17/2019 8:34 AM SENIOR COMMUNICATIONS ENGINEER IMPRESSION: [place] than expected left-sided PowerFlow port in need of replacement. DICTATION LOCATION: [address] Narrative 04/17/2019 8:34 AM SENIOR COMMUNICATIONS ENGINEER FLUOROSCOPIC EVALUATION OF AN IMPLANTED POWER FLOW PORT 04/14/2019 HISTORY: 43-year-old female presenting for evaluation of a left-sided PowerFlow port. FINDINGS: ?? Fluoroscopic evaluation demonstrated a left jugular PowerFlow port in place. The catheter tip superimposing the expected location of the azygos vein. Lateral fluoroscopic evaluation demonstrated the catheter to be bent. However the catheter appears much shorter than needed. The findings were discussed with the patient and the referring physician and a replacement date has been agreed upon. Procedure Note Laverne Willoughby MD - 04/17/2019 FLUOROSCOPIC EVALUATION OF AN IMPLANTED POWER FLOW PORT 04/14/2019 HISTORY: 43-year-old female presenting for evaluation of a left-sided PowerFlow port. FINDINGS: Fluoroscopic evaluation demonstrated a left jugular PowerFlow port in place. The catheter tip superimposing the expected location of the azygos vein. Lateral fluoroscopic evaluation demonstrated the catheter to be bent. However the catheter appears much shorter than needed. The findings were discussed with the patient and the referring physician and a replacement date has been agreed upon. IMPRESSION: [place] than expected left-sided PowerFlow port in need of replacement. DICTATION LOCATION: Location - [facility] Jeffry Salazar MD IR ORDERABLES * (ABNORMAL) POC GLUCOSE (04/14/2019 11:54 AM SENIOR COMMUNICATIONS ENGINEER) GLUCOSE POC 141(H) 74 - 99 mg/dL 04/14/2019 11:54 AM [facility]ORAT[facility] COMMENT, GLU POC Notified RN/MD 04/14/2019 11:54 AM [facility] FLOATLIGHT LOADING SUPERVISOR NAME POC COREY GARVEY 04/14/2019 11:54 AM [facility] Blood, whole 04/14/2019 11:5 4 AM SENIOR COMMUNICATIONS ENGINEER 04/14/2019 12:26 PM SENIOR COMMUNICATIONS ENGINEER Jeffry Salazar MD POINT OF CARE TESTIN G Performing Organization Address [facility]/State/ZIP Co de Phone Number [facility]# [id number] [address] [place] [address] * (ABNORMAL) TRIGLYCERIDE (04/14/2019 9:24 AM SENIOR COMMUNICATIONS ENGINEER) [facility] TRIGLYCERIDE 382(H) <150 mg/dL 04/14/2019 10:04 AM [facility] Blood Venipuncture / Unknown 04/14/2019 9:24 AM SENIOR COMMUNICATIONS ENGINEER 04/14/2019 9:34 AM SENIOR COMMUNICATIONS ENGINEER Narrative [facility] - 04/14/2019 10:04 AM SENIOR COMMUNICATIONS ENGINEER TRIGLYCERIDES ? mg/dL Normal ?< 150 Borderline High ?150 - 199 High ? 200 - 499 Very High ? >= 500 Based on AHA/NCEP Guidelines. Alize Arteaga MD CHEMISTRY ORDER OSVALDO [facility]# [id number] [address] [place] [address] * (ABNORMAL) POC GLUCOSE (04/14/2019 7:51 AM SENIOR COMMUNICATIONS ENGINEER) GLUCOSE POC 212(H) 74 - 99 mg/dL 04/14/2019 7:51 AM SENIOR COMMUNICATIONS ENGINEER [facility] LABORATORY SERVICES [facility] COMMENT, GLU POC Notified RN/ 04/14/2019 7:51 AM [facility] [employer]LO[employer] LOADING SUPERVISOR NAME POC COREY GARVEY 04/14/2019 7:51 AM SENIOR COMMUNICATIONS ENGINEER [facility] LABORATORY SERVICES [facility] Blood, whole 04/14/2019 7:51 AM SENIOR COMMUNICATIONS ENGINEER 04/14/2019 8:14 AM SENIOR COMMUNICATIONS ENGINEER Jeffry Salazar MD POINT OF CARE TESTIN G Performing Organization Address City/[facility]/ZIP Co de Phone Number [facility] [employer] [facility] CLIA# [id number] [address] [place] [address] * (ABNORMAL) POC GLUCOSE (04/14/2019 4:03 AM SENIOR COMMUNICATIONS ENGINEER) GLUCOSE POC 220(H) 74 - 99 mg/dL 04/14/2019 4:03 AM [facility] LABORATORY SERVICES [facility] COMMENT, GLU POC Notified RN/ 04/14/2019 4:03 AM [facility] [employer] LOADING SUPERVISOR NAME POC ROXANNE HSIEHRELLE 04/14/2019 4:03 AM [facility] Blood, whole 04/14/2019 4:03 AM SENIOR COMMUNICATIONS ENGINEER 04/14/2019 4:11 AM SENIOR COMMUNICATIONS ENGINEER Laurie Casper MD POINT OF CARE TESTIN G [facility] [employer] [facility] CLIA# [id number] [address] [place] [address] * (ABNORMAL) POC GLUCOSE (04/14/2019 12:19 AM SENIOR COMMUNICATIONS ENGINEER) GLUCOSE POC 208(H) 74 - 99 mg/dL 04/14/2019 12:19 AM SENIOR COMMUNICATIONS ENGINEER [facility] COMMENT, GLU POC Notified RN/ 04/14/2019 12:19 AM SENIOR COMMUNICATIONS ENGINEER [employer] [facility] [employer]AD[employer] SUPERVISOR NAME POC DEIDRE HSIEH 04/14/2019 12:19 AM SENIOR COMMUNICATIONS ENGINEER [facility] Blood, whole 04/14/2019 12:1 9 AM SENIOR COMMUNICATIONS ENGINEER 04/14/2019 1:23 AM SENIOR COMMUNICATIONS ENGINEER Laurie Casper MD POINT OF CARE TESTIN G Performing Organization Address [facility]/ZIP Co de Phone Number [facility] [employer] [facility] CLIA# [id number] [address] [place] [address] * (ABNORMAL) POC GLUCOSE (04/13/2019 8:57 PM SENIOR COMMUNICATIONS ENGINEER) GLUCOSE POC 175(H) 74 - 99 mg/dL 04/13/2019 8:57 PM SENIOR COMMUNICATIONS ENGINEER [facility] [employer] SUPERVISOR NAME POC DONNA GALO ([id number]) 04/13/2019 8:57 PM SENIOR COMMUNICATIONS ENGINEER [facility] [facility] Blood, whole 04/13/2019 8:57 PM SENIOR COMMUNICATIONS ENGINEER 04/13/2019 9:14 PM SENIOR COMMUNICATIONS ENGINEER Laurie Casper MD POINT OF CARE TESTIN G Performing Organization Address [facility] Co mi Phone Number [facility] [employer] [facility] CLIA# [id number] [address] [place] [address] * (ABNORMAL) POC GLUCOSE (04/13/2019 8:12 PM SENIOR COMMUNICATIONS ENGINEER) GLUCOSE POC 184(H) 74 - 99 mg/dL 04/13/2019 8:12 PM SENIOR COMMUNICATIONS ENGINEER [facility] LABORATORY SERVICES [facility] COMMENT, GLU POC Notified RN/MD 04/13/2019 8:12 PM SENIOR COMMUNICATIONS ENGINEER [facility] LABORATORY SERVICES [facility] [employer] LOAD[employer] SUPERVISOR NAME POC DEIDRE HSIEH 04/13/2019 8:12 PM SENIOR COMMUNICATIONS ENGINEER [facility] LABORATORY SERVICES [facility] Blood, whole 04/13/2019 8:12 PM SENIOR COMMUNICATIONS ENGINEER 04/13/2019 8:29 PM SENIOR COMMUNICATIONS ENGINEER Laurie Casper MD POINT OF CARE TESTIN G [facility] [employer] [facility] CLIA# [id number] [address] [place] [address] * (ABNORMAL) POC GLUCOSE (04/13/2019 4:02 PM SENIOR COMMUNICATIONS ENGINEER) GLUCOSE POC 126(H) 74 - 99 mg/dL 04/13/2019 4:02 PM SENIOR COMMUNICATIONS ENGINEER [facility] LABORATORY SERVICES [facility] FLOATLIGHT LOADING SUPERVISOR NAME TRINI MARTINEZ 04/13/2019 4:02 PM SENIOR COMMUNICATIONS ENGINEER [facility] LABORATORY SERVICES [facility] Blood, whole 04/13/2019 4:02 PM SENIOR COMMUNICATIONS ENGINEER 04/13/2019 4:47 PM SENIOR COMMUNICATIONS ENGINEER Laurie Casper MD POINT OF CARE FLY Serrano Performing Organization Address [facility]/ZIP Co de Phone Number [facility] [employer] [facility] CLIA# [id number] [address] [place] [address] * (ABNORMAL) POC GLUCOSE (04/13/2019 12:12 PM SENIOR COMMUNICATIONS ENGINEER) GLUCOSE POC 104(H) 74 - 99 mg/dL 04/13/2019 12:12 PM SENIOR COMMUNICATIONS ENGINEER [facility] LABORATORY SERVICES [facility] FLOATLIGHT LOADING SUPERVISOR NAME TRINI MARTINEZ 04/13/2019 12:12 PM SENIOR COMMUNICATIONS ENGINEER [facility] LABORATORY SERVICES [facility] Blood, whole 04/13/2019 12:1 2 PM SENIOR COMMUNICATIONS ENGINEER 04/13/2019 12:22 PM SENIOR COMMUNICATIONS ENGINEER Laurie Casper MD POINT OF CARE TESTJERONIMO Serrano [facility] [employer] [facility] CLIA# [id number] [address] [place] [address] * POC GLUCOSE (04/13/2019 11:06 AM SENIOR COMMUNICATIONS ENGINEER) GLUCOSE POC 99 74 - 99 mg/dL 04/13/2019 11:06 AM SENIOR COMMUNICATIONS ENGINEER [facility] LABORATORY SERVICES [facility] FLOATLIGHT LOADING SUPERVISOR NAME TRINI MARTINEZ 04/13/2019 11:06 AM SENIOR COMMUNICATIONS ENGINEER [facility] Blood, whole 04/13/2019 11:0 6 AM SENIOR COMMUNICATIONS ENGINEER 04/13/2019 11:45 AM SENIOR COMMUNICATIONS ENGINEER Laurie Casper MD POINT OF CARE TESTJERONIMO Serrano [facility] CLIA# [id number] [address] [place] [address] * (ABNORMAL) POC GLUCOSE (04/13/2019 10:07 AM SENIOR COMMUNICATIONS ENGINEER) GLUCOSE POC 117(H) 74 - 99 mg/dL 04/13/2019 10:07 AM SENIOR COMMUNICATIONS ENGINEER [facility] LABORATORY [facility] FLOATLIGHT LOADING SUPERVISOR NAME POC KRUNAL COURTNEY 04/13/2019 10:07 AM SENIOR COMMUNICATIONS ENGINEER [facility] LABORATORY [facility] Blood, whole 04/13/2019 10:0 7 AM SENIOR COMMUNICATIONS ENGINEER 04/13/2019 10:14 AM SENIOR COMMUNICATIONS ENGINEER Laurie Casper MD POINT OF CARE FLY Serrano Performing Organization Address [facility]/ZIP Co de Phone Number [facility] [employer] [facility] CLIA# [id number] [address] [place] [address] * (ABNORMAL) POC GLUCOSE (04/13/2019 9:07 AM SENIOR COMMUNICATIONS ENGINEER) GLUCOSE POC 127(H) 74 - 99 mg/dL 04/13/2019 9:07 AM SENIOR COMMUNICATIONS ENGINEER [facility] LABORATORY [facility] FLOATLIGHT LOADING SUPERVISOR NAME POC SHANTELL WHITTAKER 04/13/2019 9:07 AM SENIOR COMMUNICATIONS ENGINEER [facility] LAB[facility]ATORY [facility] Blood, whole 04/13/2019 9:07 AM SENIOR COMMUNICATIONS ENGINEER 04/13/2019 9:17 AM SENIOR COMMUNICATIONS ENGINEER Laurie Casper MD POINT OF CARE TESTJERONIMO Serrano [facility]ORY [facility] CLIA# [id number] [address] [place] [place] [address] * (ABNORMAL) POC GLUCOSE (04/13/2019 8:14 AM SENIOR COMMUNICATIONS ENGINEER) GLUCOSE POC 125(H) 74 - 99 mg/dL 04/13/2019 8:14 AM [facility] [employer]LOATL[employer] LOADING SUPERVISOR NAME TRINI MARTINEZ 04/13/2019 8:14 AM [facility] Blood, whole 04/13/2019 8:14 AM SENIOR COMMUNICATIONS ENGINEER 04/13/2019 9:11 AM SENIOR COMMUNICATIONS ENGINEER Laurie Casper MD POINT OF CARE TESTIN G Performing Organization Address [facility]/ZIP Co de Phone Number [facility] CLIA# [id number] [address] [place] [address] * (ABNORMAL) POC GLUCOSE (04/13/2019 7:02 AM SENIOR COMMUNICATIONS ENGINEER) GLUCOSE POC 142(H) 74 - 99 mg/dL 04/13/2019 7:02 AM SENIOR COMMUNICATIONS ENGINEER [facility]ATORY [facility] FLOATL[employer] LOADING SUPERVISOR NAME TRINI MARTINEZ 04/13/2019 7:02 AM [facility] [employer] [facility] Blood, whole 04/13/2019 7:02 AM SENIOR COMMUNICATIONS ENGINEER 04/13/2019 9:11 AM SENIOR COMMUNICATIONS ENGINEER Laurie Casper MD POINT OF CARE TESTIN G Performing Organization Address City/[facility]/ZIP Co de Phone Number [id number] [address] [place] [address] * (ABNORMAL) POC GLUCOSE (04/13/2019 6:07 AM SENIOR COMMUNICATIONS ENGINEER) GLUCOSE POC 160(H) 74 - 99 mg/dL 04/13/2019 6:07 AM SENIOR COMMUNICATIONS ENGINEER [facility]ORY [facility] FLOATL[employer] LOADING SUPERVISOR NAME RICHY VANESSA 04/13/2019 6:07 AM SENIOR COMMUNICATIONS ENGINEER [facility]ORY [facility] Blood, whole 04/13/2019 6:07 AM SENIOR COMMUNICATIONS ENGINEER 04/13/2019 6:15 AM SENIOR COMMUNICATIONS ENGINEER Laurie Casper MD POINT OF CARE TESTJERONIMO Maggie [facility]ATORY [facility]# [id number] [address] [place] [address] * (ABNORMAL) POC GLUCOSE (04/13/2019 4:59 AM SENIOR COMMUNICATIONS ENGINEER) GLUCOSE POC 174(H) 74 - 99 mg/dL 04/13/2019 4:59 AM SENIOR COMMUNICATIONS ENGINEER [facility] LABORATORY SERVICES [facility] FLOAT[employer] LOAD[employer] SUPERVISOR NAME POC VICTORIANO BIRCH 04/13/2019 4:59 AM SENIOR COMMUNICATIONS ENGINEER [facility] LABORATORY SERVICES [facility] Blood, whole 04/13/2019 4:59 AM SENIOR COMMUNICATIONS ENGINEER 04/13/2019 5:08 AM SENIOR COMMUNICATIONS ENGINEER Laurie Casper MD POINT OF CARE TESTJERONIMO Maggie Performing Organization Address City/[facility]/ZIP Co de Phone Number [facility] LAB[facility]ATORY [facility]# [id number] [address] [place] [address] * (ABNORMAL) POC GLUCOSE (04/13/2019 4:06 AM SENIOR COMMUNICATIONS ENGINEER) GLUCOSE POC 178(H) 74 - 99 mg/dL 04/13/2019 4:06 AM SENIOR COMMUNICATIONS ENGINEER [facility] LABORATORY SERVICES [facility] COMMENT, GLU POC Notified RN/MD 04/13/2019 4:06 AM SENIOR COMMUNICATIONS ENGINEER [facility] LABORATORY SERVICES [facility] FLOATLIGHT LOADING SUPERVISOR NAME POC JILLIAN CORONA 04/13/2019 4:06 AM SENIOR COMMUNICATIONS ENGINEER [facility] Blood, whole 04/13/2019 4:06 AM SENIOR COMMUNICATIONS ENGINEER 04/13/2019 4:14 AM SENIOR COMMUNICATIONS ENGINEER Laurie Casper MD POINT OF CARE TESTJERONIMO Maggie [facility] LABORATORY [facility]# [id number] [address] [place] [address] * MAGNESIUM LEVEL (04/13/2019 3:40 AM SENIOR COMMUNICATIONS ENGINEER) MAGNESIUM 1.6 1.6 - 2.6 mg/dL 04/13/2019 4:21 AM [facility] Blood Venipuncture / Unknown 04/13/2019 3:40 AM SENIOR COMMUNICATIONS ENGINEER 04/13/2019 3:47 AM SENIOR COMMUNICATIONS ENGINEER Laurie Casper MD CHEMISTRY ORDERABLES [facility] [employer] SERVICES [facility] CLIA# [id number] [facility] [place] [address] * (ABNORMAL) CBC WITHOUT DIFFERENTIAL (04/13/2019 3:40 AM SENIOR COMMUNICATIONS ENGINEER) WBC 9.6 4.0 - 9.8 K/uL 04/13/2019 4:05 AM [facility] [employer] [facility] RBC 3.73(L) 3.90 - 4.90 M/uL 04/13/2019 4:05 AM [facility] [employer] [facility]. [facility] HEMOGLOBIN 10.7(L) 11.8 - 14.8 g/dL 04/13/2019 4:05 AM [facility] [employer] [facility]. [facility] HEMATOCRIT 34.0(L) 35.5 - 44.0 % 04/13/2019 4:05 AM [facility] [employer] [facility]. [facility] MCV 91.2 82.0 - 99.0 fL 04/13/2019 4:05 AM [facility] [employer] [facility]. [facility] MCH 28.7 27.2 - 32.6 pg 04/13/2019 4:05 AM [facility] [employer] [facility]. [facility] MCHC 31.5 31.5 - 35.5 g/dL 04/13/2019 4:05 AM [facility] [employer] [facility]. [facility] PLATELETS 188 140 - 350 K/uL 04/13/2019 4:05 AM [facility] [employer] [facility]. [facility] MPV 9.6 9.3 - 12.4 fL 04/13/2019 4:05 AM [facility] [employer] [facility]. [facility] RDW 16.1(H) 11.5 - 14.5 % 04/13/2019 4:05 AM [facility] [employer] [facility]. [facility] RDW-STDEV 54.1(H) 37.1 - 48.7 fL 04/13/2019 4:05 AM [facility] [employer] [facility] Blood Venipuncture / Unknown 04/13/2019 3:40 AM SENIOR COMMUNICATIONS ENGINEER 04/13/2019 3:47 AM SENIOR COMMUNICATIONS ENGINEER Maco Duque MD HEMATOLOGY ORDERABL ES [facility] [employer] [facility]# [id number] [address] [place] [address] * (ABNORMAL) BASIC METABOLIC PANEL (04/13/2019 3:40 AM SENIOR COMMUNICATIONS ENGINEER) SODIUM 134(L) 136 - 145 mmol/L 04/13/2019 4:21 AM [facility] [employer] [facility] POTASSIUM 3.9 3.5 - 5.0 mmol/L 04/13/2019 4:21 AM [facility] [employer] [facility] CHLORIDE 101 98 - 107 mmol/L 04/13/2019 4:21 AM [facility] [employer] [facility] CO2 22 22 - 29 mmol/L 04/13/2019 4:21 AM [facility] CALCIUM 7.8(L) 8.6 - 10.2 mg/dL 04/13/2019 4:21 AM [facility] BUN 2(L) 6 - 20 mg/dL 04/13/2019 4:21 AM [facility] CREATININE 0.44(L) 0.51 - 0.95 mg/dL 04/13/2019 4:21 AM [facility] [employer] [facility] GLUCOSE 174(H) 74 - 99 mg/dL 04/13/2019 4:21 AM [facility] [employer] [facility]. [facility] GFR >60 >=60 mL/min/1.7 3 sq meter 04/13/2019 4:21 AM [facility] [employer] [facility] Comment: eGFR has not been validated [...] GFR, >60 >=60 mL/min/1.7 3 sq meter 04/13/2019 4:21 AM SENIOR COMMUNICATIONS ENGINEER [facility] LABORATORY [facility] ANION GAP 11 8 - 16 mmol/L 04/13/2019 4:21 AM [facility] Blood Venipuncture / Unknown 04/13/2019 3:40 AM SENIOR COMMUNICATIONS ENGINEER 04/13/2019 3:47 AM SENIOR COMMUNICATIONS ENGINEER Maco Duque MD CHEMISTRY ORDERABLE S Performing Organization Address [facility]/ZIP Co de Phone Number [facility] [employer] [facility] CLIA# [id number] [address] [place] [address] * (ABNORMAL) POC GLUCOSE (04/13/2019 2:56 AM SENIOR COMMUNICATIONS ENGINEER) GLUCOSE POC 172(H) 74 - 99 mg/dL 04/13/2019 2:56 AM SENIOR COMMUNICATIONS ENGINEER [facility] LABORATORY [facility] FLOATLIGHT LOADING SUPERVISOR NAME POC VICTORIANO BIRCH 04/13/2019 2:56 AM [facility] [employer] [facility] Blood, whole 04/13/2019 2:56 AM SENIOR COMMUNICATIONS ENGINEER 04/13/2019 3:05 AM SENIOR COMMUNICATIONS ENGINEER Laurie Casper MD POINT OF CARE TESTIN G Performing Organization Address [facility]/ZIP Co de Phone Number [facility] [employer] [facility] CLIA# [id number] [address] [place] [address] * (ABNORMAL) POC GLUCOSE (04/13/2019 2:03 AM SENIOR COMMUNICATIONS ENGINEER) GLUCOSE POC 162(H) 74 - 99 mg/dL 04/13/2019 2:03 AM SENIOR COMMUNICATIONS ENGINEER [facility] LABORATORY [facility] FLOATLIGHT LOADING SUPERVISOR NAME POC RICHY HADDAD 04/13/2019 2:03 AM SENIOR COMMUNICATIONS ENGINEER [facility] Blood, whole 04/13/2019 2:03 AM SENIOR COMMUNICATIONS ENGINEER 04/13/2019 2:10 AM SENIOR COMMUNICATIONS ENGINEER Laurie Casper MD POINT OF CARE TESTJERONIMO Serrano Performing Organization Address [facility]/ZIP Co de Phone Number [facility] LABORATORY [facility] CLIA# [id number] [address] [place] [address] * (ABNORMAL) POC GLUCOSE (04/13/2019 1:01 AM SENIOR COMMUNICATIONS ENGINEER) GLUCOSE POC 166(H) 74 - 99 mg/dL 04/13/2019 1:01 AM SENIOR COMMUNICATIONS ENGINEER [facility] LABORATORY SERVICES [facility] FLOATLIGHT LOADING SUPERVISOR NAME POC RICHY HADDAD 04/13/2019 1:01 AM SENIOR COMMUNICATIONS ENGINEER [facility] LABORATORY SERVICES [facility] Blood, whole 04/13/2019 1:01 AM SENIOR COMMUNICATIONS ENGINEER 04/13/2019 1:08 AM SENIOR COMMUNICATIONS ENGINEER Laurie Casper MD POINT OF CARE TESTJERONIMO Serrano Performing Organization Address [facility]/ZIP Co de Phone Number [facility] [employer] [facility] CLIA# [id number] [address] [place] [address] * (ABNORMAL) POC GLUCOSE (04/12/2019 11:55 PM SENIOR COMMUNICATIONS ENGINEER) GLUCOSE POC 171(H) 74 - 99 mg/dL 04/12/2019 11:55 PM SENIOR COMMUNICATIONS ENGINEER [facility] LABORATORY SERVICES [facility] FLOATLIGHT LOADING SUPERVISOR NAME POC VICTORIANO BIRCH 04/12/2019 11:55 PM SENIOR COMMUNICATIONS ENGINEER [facility] LABORATORY SERVICES [facility] Blood, whole 04/12/2019 11:5 5 PM SENIOR COMMUNICATIONS ENGINEER 04/13/2019 12:04 AM SENIOR COMMUNICATIONS ENGINEER Laurie Casper MD POINT OF CARE TESTJERONIMO Serrano [facility] LABORATORY [facility] CLIA# [id number] [address] [place] [address] * (ABNORMAL) POC GLUCOSE (04/12/2019 11:01 PM SENIOR COMMUNICATIONS ENGINEER) GLUCOSE POC 162(H) 74 - 99 mg/dL 04/12/2019 11:01 PM SENIOR COMMUNICATIONS ENGINEER [facility] LABORATORY [facility] FLOATLIGHT LOADING SUPERVISOR NAME POC RICHY HADDAD 04/12/2019 11:01 PM SENIOR COMMUNICATIONS ENGINEER [facility] LABORATORY [facility] Blood, whole 04/12/2019 11:0 1 PM SENIOR COMMUNICATIONS ENGINEER 04/12/2019 11:08 PM SENIOR COMMUNICATIONS ENGINEER Laurie Casper MD POINT OF CARE TESTIN G [facility] CLIA# [id number] [address] [address] * (ABNORMAL) POC GLUCOSE (04/12/2019 10:05 PM SENIOR COMMUNICATIONS ENGINEER) GLUCOSE POC 167(H) 74 - 99 mg/dL 04/12/2019 10:05 PM SENIOR COMMUNICATIONS ENGINEER [facility] LABORATORY [facility] FLOATL[employer] LOADING SUPERVISOR NAME POC TAMIKO LASSITER 04/12/2019 10:05 PM SENIOR COMMUNICATIONS ENGINEER [facility] [employer] [facility] Blood, whole 04/12/2019 10:0 5 PM SENIOR COMMUNICATIONS ENGINEER 04/12/2019 10:14 PM SENIOR COMMUNICATIONS ENGINEER Laurie Casper MD POINT OF CARE TESTIN G Performing Organization Address City/[facility]/ZIP Co de Phone Number [facility] CLTN# [id number] [address] [place] [address] * (ABNORMAL) POC GLUCOSE (04/12/2019 8:53 PM SENIOR COMMUNICATIONS ENGINEER) GLUCOSE POC 116(H) 74 - 99 mg/dL 04/12/2019 8:53 PM SENIOR COMMUNICATIONS ENGINEER [facility] LABORATORY [facility] FLOATLIGHT LOADING SUPERVISOR NAME POC VICTORIANO BIRCH 04/12/2019 8:53 PM SENIOR COMMUNICATIONS ENGINEER [facility] LABORATORY [facility] Blood, whole 04/12/2019 8:53 PM SENIOR COMMUNICATIONS ENGINEER 04/12/2019 9:00 PM SENIOR COMMUNICATIONS ENGINEER Laurie Casper MD POINT OF CARE TESTIN G [facility] [employer] [facility] CLIA# [id number] [address] [place] [address] * POC GLUCOSE (04/12/2019 7:59 PM SENIOR COMMUNICATIONS ENGINEER) GLUCOSE POC 94 74 - 99 mg/dL 04/12/2019 7:59 PM SENIOR COMMUNICATIONS ENGINEER [facility] LABORATORY [facility] FLOATLIGHT LOADING SUPERVISOR NAME POC RICHY HADDAD 04/12/2019 7:59 PM SENIOR COMMUNICATIONS ENGINEER [facility] LABORATORY [facility] Blood, whole 04/12/2019 7:59 PM SENIOR COMMUNICATIONS ENGINEER 04/12/2019 8:07 PM SENIOR COMMUNICATIONS ENGINEER Laurie Casper MD POINT OF CARE TESTIN G Performing Organization Address City/[facility]/ZIP Co de Phone Number [facility] [employer] [facility] CLIA# [id number] [address] [place] [address] * (ABNORMAL) POC GLUCOSE (04/12/2019 7:05 PM SENIOR COMMUNICATIONS ENGINEER) GLUCOSE POC 108(H) 74 - 99 mg/dL 04/12/2019 7:05 PM SENIOR COMMUNICATIONS ENGINEER [facility] LABORATORY [facility] [employer] LO[employer] SUPERVISOR NAME POC VICTORIANO BIRCH 04/12/2019 7:05 PM SENIOR COMMUNICATIONS ENGINEER [facility] [employer] [facility] Blood, whole 04/12/2019 7:05 PM SENIOR COMMUNICATIONS ENGINEER 04/12/2019 7:14 PM SENIOR COMMUNICATIONS ENGINEER Laurie Casper MD POINT OF CARE TESTIN G [facility] [employer] [facility] CLIA# [id number] [address] [place] [address] * (ABNORMAL) POC GLUCOSE (04/12/2019 6:14 PM SENIOR COMMUNICATIONS ENGINEER) GLUCOSE POC 120(H) 74 - 99 mg/dL 04/12/2019 6:14 PM SENIOR COMMUNICATIONS ENGINEER [facility] COMMENT, GLU POC Notified RN/MD 04/12/2019 6:14 PM SENIOR COMMUNICATIONS ENGINEER [employer] LABORATORY SERVICES - [facility] [employer] SUPERVISOR NAME ABHAY CORTES 04/12/2019 6:14 PM SENIOR COMMUNICATIONS ENGINEER [facility] LABORATORY SERVICES [facility] Blood, whole 04/12/2019 6:14 PM SENIOR COMMUNICATIONS ENGINEER 04/12/2019 6:23 PM SENIOR COMMUNICATIONS ENGINEER Laurie Casper MD POINT OF CARE TESTIN G Performing Organization Address [facility]/ZIP Co de Phone Number [facility] [employer] [facility] CLIA# [id number] [address] [place] [address] * (ABNORMAL) POC GLUCOSE (04/12/2019 5:35 PM SENIOR COMMUNICATIONS ENGINEER) GLUCOSE POC 107(H) 74 - 99 mg/dL 04/12/2019 5:35 PM SENIOR COMMUNICATIONS ENGINEER [facility] COMMENT, GLU POC Notified BREANN 04/12/2019 5:35 PM SENIOR COMMUNICATIONS ENGINEER [facility] FLOATL[employer] LOADING SUPERVISOR NAME [facility] ABHAY GARCIA 04/12/2019 5:35 PM SENIOR COMMUNICATIONS ENGINEER [facility] Blood, whole 04/12/2019 5:35 PM SENIOR COMMUNICATIONS ENGINEER 04/12/2019 5:41 PM SENIOR COMMUNICATIONS ENGINEER Laurie Casper MD POINT OF CARE TESTJERONIMO G Performing Organization Address [facility] Co de Phone Number [facility] [employer] [facility] [id number] [address] [place] [address] * (ABNORMAL) POC GLUCOSE (04/12/2019 4:14 PM SENIOR COMMUNICATIONS ENGINEER) GLUCOSE POC 117(H) 74 - 99 mg/dL 04/12/2019 4:14 PM SENIOR COMMUNICATIONS ENGINEER [facility] COMMENT, GLU POC Notified CLAU/ 04/12/2019 4:14 PM SENIOR COMMUNICATIONS ENGINEER [facility] FLOATLIGHT LOADING SUPERVISOR NAME ABHAY CORTES 04/12/2019 4:14 PM SENIOR COMMUNICATIONS ENGINEER [facility] Blood, whole 04/12/2019 4:14 PM SENIOR COMMUNICATIONS ENGINEER 04/12/2019 4:21 PM SENIOR COMMUNICATIONS ENGINEER Laurie Casper MD POINT OF CARE TESTIN G Performing Organization Address [facility]/ZIP Co de Phone Number [facility] [employer] [facility] CLIA# [id number] [address] [place] [address] * (ABNORMAL) POC GLUCOSE (04/12/2019 2:57 PM SENIOR COMMUNICATIONS ENGINEER) GLUCOSE POC 116(H) 74 - 99 mg/dL 04/12/2019 2:57 PM SENIOR COMMUNICATIONS ENGINEER [facility] COMMENT, GLU POC Notified RN/MD 04/12/2019 2:57 PM SENIOR COMMUNICATIONS ENGINEER [facility] FLOATLIGHT LOADING SUPERVISOR NAME POC BAHAY GARCIA 04/12/2019 2:57 PM SENIOR COMMUNICATIONS ENGINEER [facility] Blood, whole 04/12/2019 2:57 PM SENIOR COMMUNICATIONS ENGINEER 04/12/2019 3:06 PM SENIOR COMMUNICATIONS ENGINEER Laurie Casper MD POINT OF CARE TESTJERONIMO G Performing Organization Address [facility] Co de Phone Number [facility] [employer] [facility] CLIA# [id number] [address] [place] [address] * (ABNORMAL) POC GLUCOSE (04/12/2019 2:08 PM SENIOR COMMUNICATIONS ENGINEER) GLUCOSE POC 124(H) 74 - 99 mg/dL 04/12/2019 2:08 PM SENIOR COMMUNICATIONS ENGINEER [facility] COMMENT, GLU POC Notified RN/MD 04/12/2019 2:08 PM SENIOR COMMUNICATIONS ENGINEER [facility] [employer]LO[employer] LOAD[employer] SUPERVISOR NAME POC ABHAY GARCIA 04/12/2019 2:08 PM SENIOR COMMUNICATIONS ENGINEER [facility] Blood, whole 04/12/2019 2:08 PM SENIOR COMMUNICATIONS ENGINEER 04/12/2019 3:06 PM SENIOR COMMUNICATIONS ENGINEER Laurie Casper MD POINT OF CARE TESTIN G [facility] CLIA# [id number] [address] [place] [address] * (ABNORMAL) POC GLUCOSE (04/12/2019 12:21 PM SENIOR COMMUNICATIONS ENGINEER) GLUCOSE POC 182(H) 74 - 99 mg/dL 04/12/2019 12:21 PM [facility] [email or web address] LABORATORY [facility] COMMENT, GLU POC Notified RN/MD 04/12/2019 12:21 PM [facility] [employer]LO[employer] LO[employer] SUPERVISOR NAME POC ABHAY GARCIA 04/12/2019 12:21 PM [facility] [employer] [facility] Blood, whole 04/12/2019 12:2 1 PM SENIOR COMMUNICATIONS ENGINEER 04/12/2019 12:29 PM SENIOR COMMUNICATIONS ENGINEER Laurie Casper MD POINT OF CARE TESTIN G [facility] [employer] [facility]# [id number] [address] [place] [address] * (ABNORMAL) BASIC METABOLIC PANEL (04/12/2019 11:38 AM SENIOR COMMUNICATIONS ENGINEER) SODIUM 133(L) 136 - 145 mmol/L 04/12/2019 12:11 PM [facility] - . [facility] POTASSIUM 3.8 3.5 - 5.0 mmol/L 04/12/2019 12:11 PM [facility] - . [facility] CHLORIDE 99 98 - 107 mmol/L 04/12/2019 12:11 PM [facility] - . [facility] CO2 24 22 - 29 mmol/L 04/12/2019 12:11 PM [facility] - . [facility] CALCIUM 8.2(L) 8.6 - 10.2 mg/dL 04/12/2019 12:11 PM [facility] BUN 5(L) 6 - 20 mg/dL 04/12/2019 12:11 PM [facility] - . [facility] CREATININE 0.50(L) 0.51 - 0.95 mg/dL 04/12/2019 12:11 PM [facility] - . [facility] GLUCOSE 244(H) 74 - 99 mg/dL 04/12/2019 12:11 PM SENIOR COMMUNICATIONS ENGINEER [facility] [employer] [facility] GFR >60 >=60 mL/min/1.7 3 sq meter 04/12/2019 12:11 PM [facility] [employer] [facility] Comment: eGFR has not been [...] GFR, >60 >=60 mL/min/1.7 3 sq meter 04/12/2019 12:11 PM [facility] ANION GAP 10 8 - 16 mmol/L 04/12/2019 12:11 PM SENIOR COMMUNICATIONS ENGINEER [facility] [employer] [facility] Blood Venipuncture / Unknown 04/12/2019 11:38 AM SENIOR COMMUNICATIONS ENGINEER 04/12/2019 11:43 AM SENIOR COMMUNICATIONS ENGINEER Maco Duque MD CHEMISTRY ORDERABLE S [facility]# [id number] 5 Francisco BANNER MD [facility] [place] [address] * (ABNORMAL) TRIGLYCERIDE (04/12/2019 11:38 AM SENIOR COMMUNICATIONS ENGINEER) TRIGLYCERIDE 1,199(H) <150 mg/dL 04/12/2019 12:26 PM SENIOR COMMUNICATIONS ENGINEER [facility] [employer] [facility] Blood Venipuncture / Unknown 04/12/2019 11:38 AM SENIOR COMMUNICATIONS ENGINEER 04/12/2019 11:43 AM SENIOR COMMUNICATIONS ENGINEER Narrative [facility] - 04/12/2019 12:26 PM SENIOR COMMUNICATIONS ENGINEER TRIGLYCERIDES ? mg/dL Normal ?< 150 Borderline High ?150 - 199 High ? 200 - 499 Very High ? >= 500 Based on AHA/NCEP Guidelines. Maco Duque MD CHEMISTRY ORDERABLE S Performing Organization Address [facility] Co de Phone Number [facility] [employer] [facility]# [id number] [address] [place] [address] * (ABNORMAL) POC GLUCOSE (04/12/2019 10:39 AM SENIOR COMMUNICATIONS ENGINEER) GLUCOSE POC 235(H) 74 - 99 mg/dL 04/12/2019 10:39 AM SENIOR COMMUNICATIONS ENGINEER [facility] COMMENT, GLU POC Notified RN/MD 04/12/2019 10:39 AM SENIOR COMMUNICATIONS ENGINEER [facility] [employer] LO[employer] SUPERVISOR NAME ABHAY CORTES 04/12/2019 10:39 AM SENIOR COMMUNICATIONS ENGINEER [facility] Blood, whole 04/12/2019 10:3 9 AM SENIOR COMMUNICATIONS ENGINEER 04/12/2019 10:49 AM SENIOR COMMUNICATIONS ENGINEER Laurie Casper MD POINT OF CARE TESTIN G Performing Organization Address [facility] Phone Number [email or web address] [facility]# [id number] [address] [place] [address] * (ABNORMAL) POC GLUCOSE (04/12/2019 8:08 AM SENIOR COMMUNICATIONS ENGINEER) GLUCOSE POC 213(H) 74 - 99 mg/dL 04/12/2019 8:08 AM SENIOR COMMUNICATIONS ENGINEER [facility] COMMENT, GLU POC Notified RN/MD 04/12/2019 8:08 AM SENIOR COMMUNICATIONS ENGINEER [facility] [facility] [employer] LOAD[employer] SUPERVISOR NAME ABHAY CORTES 04/12/2019 8:08 AM SENIOR COMMUNICATIONS ENGINEER [facility] Blood, whole 04/12/2019 8:08 AM SENIOR COMMUNICATIONS ENGINEER 04/12/2019 8:20 AM SENIOR COMMUNICATIONS ENGINEER Laurie Casper MD POINT OF CARE TESTIN G Performing Organization Address [facility]/State/ZIP Co de Phone Number [facility] [employer] [facility]# [id number] [address] [place] [address] * (ABNORMAL) POC GLUCOSE (04/12/2019 6:49 AM SENIOR COMMUNICATIONS ENGINEER) GLUCOSE POC 201(H) 74 - 99 mg/dL 04/12/2019 6:49 AM SENIOR COMMUNICATIONS ENGINEER [facility] LABORATORY [facility] [employer]LOATL[employer] LOAD[employer] SUPERVISOR NAME POC LEONCIO MONTES DE OCA 04/12/2019 6:49 AM SENIOR COMMUNICATIONS ENGINEER [facility] Blood, whole 04/12/2019 6:49 AM SENIOR COMMUNICATIONS ENGINEER 04/12/2019 7:04 AM SENIOR COMMUNICATIONS ENGINEER Laurie Casper MD POINT OF CARE TESTJERONIMO Serrano Performing Organization Address [facility]/ZIP Co de Phone Number [facility] [employer] [facility]# [id number] [address] [place] [address] * (ABNORMAL) POC GLUCOSE (04/12/2019 2:12 AM SENIOR COMMUNICATIONS ENGINEER) GLUCOSE POC 249(H) 74 - 99 mg/dL 04/12/2019 2:12 AM SENIOR COMMUNICATIONS ENGINEER [facility] LABORATORY [facility] [employer]LOATL[employer] LOAD[employer] SUPERVISOR NAME POC BROWN REED 04/12/2019 2:12 AM SENIOR COMMUNICATIONS ENGINEER [facility] Blood, whole 04/12/2019 2:12 AM SENIOR COMMUNICATIONS ENGINEER 04/12/2019 2:19 AM SENIOR COMMUNICATIONS ENGINEER Herrera Maza MD POINT OF CARE TESTJERONIMO G [facility] [employer] [facility]# [id number] [address] [place] [address] * CT ABDOMEN PELVIS W CONTRAST (04/12/2019 2:06 AM SENIOR COMMUNICATIONS ENGINEER) Anatomical Region Laterality Modality Abdomen Computed Tomogra phy 04/12/2019 2:07 AM SENIOR COMMUNICATIONS ENGINEER Impressions 04/12/2019 2:18 AM SENIOR COMMUNICATIONS ENGINEER IMPRESSION: Acute interstitial edematous pancreatitis. Complex 4.8 cm right adnexal cyst. 4-6 week pelvic ultrasound follow-up recommended.. DICTATION LOCATION: Location [address] [place] [address] 04/12/2019 2:18 AM SENIOR COMMUNICATIONS ENGINEER CT ABDOMEN PELVIS W CONTRAST DATE: 04/12/2019 2:06 AM CLINICAL INFORMATION: Abdominal pain COMPARISON: CT abdomen and pelvis 07/30/2018 PROCEDURE: Axial images were obtained from the lung bases through the ischial tuberosities following the administration of intravenous contrast. Oral contrast was not administered. Multiplanar reformatted images were reviewed. The examination was performed with the adjustment of mA according to the patient size and/or the use of Iterative 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 ?? FINDINGS: LOWER CHEST: Within normal limits. LIVER: Within normal limits GALLBLADDER: Within normal limits. BILE DUCTS: Within normal limits. PANCREAS: Fat stranding adjacent to the pancreatic head. SPLEEN: Within normal limits. ADRENALS: Within normal limits. KIDNEYS/URETERS: Left renal congenital malrotation. Small left renal cyst. BLADDER: Within normal limits. REPRODUCTIVE ORGANS: Hysterectomy. A 4.8 cm complex right adnexal cyst. BOWEL/MESENTERY: No bowel obstruction or wall thickening. Appendix not visualized. PERITONEUM/RETROPERITONEUM: As above. No ascites or free air. No significant lymphadenopathy. VESSELS: Aortic calcifications. ABDOMINAL WALL: Within normal limits. BONES: Within normal limits. Procedure Note Aime Hsieh MD - 04/12/2019 CT ABDOMEN PELVIS W CONTRAST DATE: 04/12/2019 2:06 AM CLINICAL INFORMATION: Abdominal pain COMPARISON: CT abdomen and pelvis 07/30/2018 PROCEDURE: Axial images were obtained from the lung bases through the ischial tuberosities following the administration of intravenous contrast. Oral contrast was not administered. Multiplanar reformatted images were reviewed. The examination was performed with the adjustment of mA according to the patient size and/or the use of Iterative 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 FINDINGS: LOWER CHEST: Within normal limits. LIVER: Within normal limits GALLBLADDER: Within normal limits. BILE DUCTS: Within normal limits. PANCREAS: Fat stranding adjacent to the pancreatic head. SPLEEN: Within normal limits. ADRENALS: Within normal limits. KIDNEYS/URETERS: Left renal congenital malrotation. Small left renal cyst. BLADDER: Within normal limits. REPRODUCTIVE ORGANS: Hysterectomy. A 4.8 cm complex right adnexal cyst. BOWEL/MESENTERY: No bowel obstruction or wall thickening. Appendix not visualized. PERITONEUM/RETROPERITONEUM: As above. No ascites or free air. No significant lymphadenopathy. VESSELS: Aortic calcifications. ABDOMINAL WALL: Within normal limits. BONES: Within normal limits. IMPRESSION: Acute interstitial edematous pancreatitis. Complex 4.8 cm right adnexal cyst. 4-6 week pelvic ultrasound follow-up recommended.. DICTATION LOCATION: Location [address] ORDERABLES * (ABNORMAL) POC CREATININE (04/12/2019 1:36 AM SENIOR COMMUNICATIONS ENGINEER) CREATININE POC 0.40(L) 0.50 - 1.00 mg/dL 04/12/2019 1:36 AM SENIOR COMMUNICATIONS ENGINEER [employer] [facility] GFR >60 >=60 mL/min/1. 73 sq meter 04/12/2019 1:36 AM SENIOR COMMUNICATIONS ENGINEER [employer] [facility] Comment: eGFR has not been validated [...] to the GFR result. GFR, >60 >=60 mL/min/1. 73 sq meter 04/12/2019 1:36 AM SENIOR COMMUNICATIONS ENGINEER [employer] [facility] [employer] SUPERVISOR NAME POC CRISELDA ZUNIGA) 04/12/2019 1:36 AM SENIOR COMMUNICATIONS ENGINEER [facility] [employer] [facility] Blood, capillary 04/12/2019 1:36 AM SENIOR COMMUNICATIONS ENGINEER 04/12/2019 1:40 AM SENIOR COMMUNICATIONS ENGINEER Herrera Maza MD POINT OF CARE TESTIN G [facility] [employer] [facility] CLIA# [id number] [address] [facility] [place] [address] * (ABNORMAL) URINALYSIS WITH REFLEX MICROSCOPIC (04/12/2019 12:25 AM SENIOR COMMUNICATIONS ENGINEER) COLOR UA Pale Yellow Pale to Dark Yellow 04/12/2019 12:43 AM [facility] [employer] [facility] CLARITY UA Clear Clear 04/12/2019 12:43 AM [facility] [employer] [facility] - . [facility] SPECIFIC GRAVITY UA 1.027 1.003 - 1.035 04/12/2019 12:43 AM [facility] [employer] [facility] - . [facility] PH UA 6.0 5.0 - 8.0 04/12/2019 12:43 AM [facility] [employer] [facility] LEUKOCYTE ESTERASE UA Negative Negative 04/12/2019 12:43 AM [facility] [employer] [facility]. [facility] NITRITE UA Negative Negative 04/12/2019 12:43 AM [facility] [employer] [facility]. [facility] PROTEIN UA Negative Negative 04/12/2019 12:43 AM [facility] [employer] [facility] GLUCOSE UA 3+(A) Negative 04/12/2019 12:43 AM [facility] [employer] [facility]. [facility] KETONES UA Trace(A) Negative 04/12/2019 12:43 AM [facility] [employer] [facility] UROBILINOGEN UA Normal <2.0 mg/dL 9 12:43 AM [facility] [employer] [facility]. [facility] BILIRUBIN UA Negative Negative 04/12/2019 12:43 AM [facility] [employer] [facility]. [facility] BLOOD UA Negative Negative 04/12/2019 12:43 AM [facility] [employer] [facility]. [facility] Urine URINE SPECIMEN OBTAINED BY CLEAN CATCH PROCEDURE / Unknown Collection / Unknown 04/12/2019 12:25 AM SENIOR COMMUNICATIONS ENGINEER 04/12/2019 12:30 AM [facility] Herrera Maza MD URINE ORDERABLES [facility] [employer] [facility] CLIA# [id number] [address] [place] [address] * ETHANOL LEVEL (04/12/2019 12:16 AM SENIOR COMMUNICATIONS ENGINEER) ETHANOL <10.00 <10.00 mg/dL 04/12/2019 12:53 AM [facility] [employer] [facility] ETHANOL % <0.01 %w/v 04/12/2019 12:53 AM SENIOR COMMUNICATIONS ENGINEER [facility] [employer] [facility] Blood Venipuncture / Unknown 04/12/2019 12:16 AM SENIOR COMMUNICATIONS ENGINEER 04/12/2019 12:24 AM SENIOR COMMUNICATIONS ENGINEER Herrera Maza MD CHEMISTRY ORDERABLES Performing Organization Address City/[facility]/ZIP Co de Phone Number [facility] CLIA# [id number] [address] [place] [address] * AMYLASE (04/12/2019 12:16 AM SENIOR COMMUNICATIONS ENGINEER) AMYLASE 56 28 - 100 U/L 04/12/2019 12:58 AM SENIOR COMMUNICATIONS ENGINEER [facility] [employer] [facility] Blood Venipuncture / Unknown 04/12/2019 12:16 AM SENIOR COMMUNICATIONS ENGINEER 04/12/2019 12:24 AM SENIOR COMMUNICATIONS ENGINEER Herrera Maza MD CHEMISTRY ORDERABLES Performing Organization Address [facility]/ZIP Co de Phone Number [facility] [employer] [facility] CLIA# [id number] [address] [place] [address] * LIPASE (04/12/2019 12:16 AM SENIOR COMMUNICATIONS ENGINEER) LIPASE 57 13 - 60 U/L 04/12/2019 12:58 AM SENIOR COMMUNICATIONS ENGINEER [facility] [employer] [facility] Blood Venipuncture / Unknown 04/12/2019 12:16 AM SENIOR COMMUNICATIONS ENGINEER 04/12/2019 12:24 AM SENIOR COMMUNICATIONS ENGINEER Herrera Maza MD CHEMISTRY ORDERABLES Performing Organization Address City/[facility]/ZIP Co de Phone Number [facility] [employer] [facility] CLIA# [id number] [address] [place] [address] * (ABNORMAL) COMPREHENSIVE METABOLIC PANEL (04/12/2019 12:16 AM SENIOR COMMUNICATIONS ENGINEER) SODIUM 126(L) 136 - 145 mmol/L 04/12/2019 2:22 AM SENIOR COMMUNICATIONS ENGINEER [facility] [employer] [facility] POTASSIUM 04/12/2019 2:22 AM SENIOR COMMUNICATIONS ENGINEER [facility] [employer] [facility] Comment:Test cannot be perfo rmed due to gross hemolysis present. Redraw if indicated. CHLORIDE 89(L) 98 - 107 mmol/L 04/12/2019 2:22 AM [facility] CO2 17(L) 22 - 29 mmol/L 04/12/2019 2:22 AM [facility] [employer] [facility] CALCIUM 8.9 8.6 - 10.2 mg/dL 04/12/2019 2:22 AM [facility] [employer] [facility] BUN 7 6 - 20 mg/dL 04/12/2019 2:22 AM [facility] [employer] [facility] CREATININE 0.35(L) 0.51 - 0.95 mg/dL 04/12/2019 2:22 AM [facility] [employer] [facility] GLUCOSE 319(H) 74 - 99 mg/dL 04/12/2019 2:22 AM [facility] [employer] [facility] TOTAL PROTEIN 6.7 6.7 - 8.6 g/dL 04/12/2019 2:22 AM [facility] [employer] [facility] ALBUMIN 4.3 3.5 - 5.2 g/dL 04/12/2019 2:22 AM [facility] [employer] [facility] BILIRUBIN TOTAL 0.2(L) 0.3 - 1.2 mg/dL 04/12/2019 2:22 AM [facility] [employer] [facility] ALKALINE PHOSPHATASE 88 35 - 104 U/L 04/12/2019 2:22 AM [facility] [employer] [facility] Comment:Test cannot be perfo rmed due to gross hemolysis present. Redraw if indicated. AST 28 <33 U/L 04/12/2019 2:22 AM [facility] [employer] [facility] Comment: Hemolysis present. ?? Grossly lipemic Cleared of chylomicrons. ALT 14 <34 U/L 04/12/2019 2:22 AM [facility] [employer] [facility] Comment: Hemolysis present. ??Result may be falsely elevated. Grossly lipemic Cleared of chylomicrons. GFR >60 >=60 mL/min/1.7 3 sq meter 04/12/2019 2:22 AM [facility] Comment: eGFR has not been [...] GFR, >60 >=60 mL/min/1.7 3 sq meter 04/12/2019 2:22 AM [facility] [employer] [facility] ANION GAP 20(H) 8 - 16 mmol/L 04/12/2019 2:22 AM [facility] [employer] [facility] Blood Venipuncture / Unknown 04/12/2019 12:16 AM SENIOR COMMUNICATIONS ENGINEER 04/12/2019 12:24 AM SENIOR COMMUNICATIONS ENGINEER [facility] [employer] [facility] - 04/12/2019 2:22 AM SENIOR COMMUNICATIONS ENGINEER Samples containing indocyanine green cause interferences on Total and/or Direct Bilirubin and must not be measured. Herrera Maza MD CHEMISTRY ORDERABLES [facility] [employer] [facility]# [id number] [address] [facility] [place] [address] * (ABNORMAL) CBC WITH DIFFERENTIAL (04/12/2019 12:16 AM SENIOR COMMUNICATIONS ENGINEER) WBC 13.8(H) 4.0 - 9.8 K/uL 04/12/2019 12:36 AM [facility] [employer] [facility] RBC 4.35 3.90 - 4.90 M/uL 04/12/2019 12:36 AM [facility] [employer] [facility] HEMOGLOBIN 13.5 11.8 - 14.8 g/dL 04/12/2019 12:36 AM [facility] [employer] [facility] HEMATOCRIT 37.0 35.5 - 44.0 % 04/12/2019 12:36 AM [facility] [employer] [facility] MCV 85.1 82.0 - 99.0 fL 04/12/2019 12:36 AM [facility] MCH 31.0 27.2 - 32.6 pg 04/12/2019 12:36 AM [employer] [facility] MCHC 36.5(H) 31.5 - 35.5 g/dL 04/12/2019 12:36 AM SENIOR COMMUNICATIONS ENGINEER [employer] [facility] RDW 15.3(H) 11.5 - 14.5 % 04/12/2019 12:36 AM [facility] RDW-STDEV 47.2 37.1 - 48.7 fL 04/12/2019 12:36 AM [facility] PLATELETS 261 140 - 350 K/uL 04/12/2019 12:36 AM [facility] MPV 9.6 9.3 - 12.4 fL 04/12/2019 12:36 AM [facility] NEUTROPHILS 74 % 04/12/2019 12:36 AM [facility] LYMPHOCYTES 21 % 04/12/2019 12:36 AM [facility] MONOCYTES 4 % 04/12/2019 12:36 AM [facility] EOSINOPHILS 0 % 04/12/2019 12:36 AM [facility] BASOPHILS 0 % 04/12/2019 12:36 AM [employer] [facility] IMMATURE GRANULOCYTES 1 % 04/12/2019 12:36 AM [facility] Comment:IG (Immature Granulo cyte) count includes Metamyelocytes, Myelocytes, and Promyelocytes NEUTROPHIL ABSOLUTE 10.21(H) 1.90 - 7.00 K/uL 04/12/2019 12:36 AM [facility] LYMPHOCYTE ABSOLUTE 2.87 0.70 - 4.50 K/uL 04/12/2019 12:36 AM [facility] [employer] [facility] MONOCYTE ABSOLUTE 0.61 0.10 - 1.30 K/uL 04/12/2019 12:36 AM [employer] EOSINOPHIL ABSOLUTE 0.05 0.00 - 0.70 K/uL 04/12/2019 12:36 AM [facility] BASOPHILS ABSOLUTE 0.03 0.00 - 0.20 K/uL 04/12/2019 12:36 AM SENIOR COMMUNICATIONS ENGINEER [facility] IMMATURE GRANULOCYTES ABSOLUTE 0.07(H) 0.00 - 0.03 K/uL 04/12/2019 12:36 AM SENIOR COMMUNICATIONS ENGINEER [facility] Blood Venipuncture / Unknown 04/12/2019 12:16 AM SENIOR COMMUNICATIONS ENGINEER 04/12/2019 12:24 AM SENIOR COMMUNICATIONS ENGINEER Herrera Maza MD HEMATOLOGY ORDERABLE S [facility] CLIA# [id number] [place] [address] * EKG 12-LEAD (04/11/2019 11:55 PM SENIOR COMMUNICATIONS ENGINEER) 04/11/2019 11:5 5 PM SENIOR COMMUNICATIONS ENGINEER Narrative INTERFACE SYSTEM - 04/12/2019 11:23 PM SENIOR COMMUNICATIONS ENGINEER ? Stationary ECG Study ? [facility] ? Test Date: ?04/11/2019 11:55 PM Pat Name: ? CASANDRA DOSS ?Department: ?? 40 ?Room: ? 4236 Gender: ? F ?Director Instrumentation: ?? garnj4 : ?1975 ? Requested By: ?? Order Number: [id number] ?Reading MD: ?? Miguel Oviedoyr ? Measurements Intervals ?[place] ? Rate: ? 99 ? P: ?57 CT: ? 154 ?QRS: ?67 QRSD: ? 92 ? T: ?-6 QT: ? 348 ? QTc: ?447 ? Interpretive Statements ? Sinus rhythm Electronically Signed On 04-12-2019 23:23:04 SENIOR COMMUNICATIONS ENGINEER by Miguel Lewis Procedure Note Miguel Lewis MD - 04/12/2019 Stationary ECG Study [facility] Test Date: 04/11/2019 11:55 PM Pat Name: CASANDRA DOSS Department: 40 Room: 4236 Gender: F Director Instrumentation: [email or web address] : 1975 Requested By: Order Number: [id number] Reading MD: Miguel Lewis Measurements Intervals [place] Rate: 99 P: 57 CT: 154 QRS: 67 QRSD: 92 T: -6 QT: 348 QTc: 447 Interpretive Statements Sinus rhythm Electronically Signed On 04-12-2019 23:23:04 SENIOR COMMUNICATIONS ENGINEER by Miguel Lewis Herrera Maza MD ECG ORDERABLES INTERFACE SYSTEM Refer to clinic/hospital department documented in this encounter Visit Diagnoses Diagnosis Acute on chronic pancreatitis- Primary Acute on chronic pancreatitis Hypertriglyceridemia Pure hyperglyceridemia Mixed hyperlipidemia Chylomicronemia syndrome Hyperchylomicronemia Epigastric pain Abdominal pain, epigastric Hypothyroidism Unspecified hypothyroidism Chylomicronemia syndrome Hyperchylomicronemia Hypertriglyceridemia Pure hyperglyceridemia Type 2 diabetes mellitus without complication, with long-term current use of insulin GERD (gastroesophageal reflux disease) Esophageal reflux documented in this encounter Administered Medications Inactive Administered Medications - up to 3 most recent administrations Medication Order MAR Action Action Date Dose Rate Site atorvastatin (LIPITOR) tablet 80 mg 80 mg, Oral, DAILY AT BEDTIME, First dose on Sat04/12/19 at 2100, Until Discontinued, Routine Given 04/15/2019 9:42 PM SENIOR COMMUNICATIONS ENGINEER 80 mg Given 04/14/2019 8:35 PM SENIOR COMMUNICATIONS ENGINEER 80 mg Given 04/13/2019 8:59 PM SENIOR COMMUNICATIONS ENGINEER 80 mg calcium GLUCONATE 2,000 mg in sodium chloride 0.9% 120 mL IVPB 2,000 mg, IV, INTRA-PROCEDURE ONCE, 1 dose, Starting on 04/13/19 at 1230, Until Sat04/13/19 at 1330, Routine New Bag 04/13/2019 12:30 PM SENIOR COMMUNICATIONS ENGINEER 2,000 mg 120 mL/hr citalopram (CeleXA) tablet 40 mg 40 mg, Oral, DAILY AT BEDTIME, First dose on 04/12/19 at 2100, Until Discontinued, Routine Given 04/15/2019 9:42 PM SENIOR COMMUNICATIONS ENGINEER 40 mg Given 04/14/2019 8:35 PM SENIOR COMMUNICATIONS ENGINEER 40 mg Given 04/13/2019 8:59 PM SENIOR COMMUNICATIONS ENGINEER 40 mg diphenhydrAMINE (BENADRYL) tablet 25 mg 25 mg, Oral, EVERY 6 HOURS PRN, Starting on 04/12/19 at 0359, Until [place] 04/16/19 at 1842, Itching, Routine Given 04/15/2019 9:44 PM SENIOR COMMUNICATIONS ENGINEER 25 mg Given 04/14/2019 10:46 PM SENIOR COMMUNICATIONS ENGINEER 25 mg Given 04/14/2019 4:05 PM SENIOR COMMUNICATIONS ENGINEER 25 mg enoxaparin (LOVENOX) injection 40 mg 40 mg, subCUT, EVERY 24 HOURS, First dose on 04/12/19 at 0800, Until Discontinued, Routine, Indication: Prophylaxis of VTE, Dose to be adjusted per facility protocol? Yes Given 04/16/2019 8:06 AM SENIOR COMMUNICATIONS ENGINEER 40 mg Abdomen, Left Lower Quadrant Given 04/15/2019 8:22 AM SENIOR COMMUNICATIONS ENGINEER 40 mg Ar m, Right Upper Given 04/14/2019 9:04 AM SENIOR COMMUNICATIONS ENGINEER 40 mg Ab domen, Right Lower Quadrant fenofibrate (LOFIBRA) tablet 160 mg 160 mg, Oral, DAILY, First dose on 04/12/19 at 0900, Until Discontinued, Routine Given 04/16/2019 8:0 6 AM SENIOR COMMUNICATIONS ENGINEER 160 mg Given 04/15/2019 8:21 AM SENIOR COMMUNICATIONS ENGINEER 160 mg Given 04/14/2019 9:04 AM SENIOR COMMUNICATIONS ENGINEER 160 mg heparin injection 2,000 Units 2,000 Units, IV, POST-PROCEDURE ONCE, 1 dose, Starting on Sat04/13/19 at 1140, Until Sat04/13/19 at 1351, Routine, Do not dispense Given 04/13/2019 1:51 PM SENIOR COMMUNICATIONS ENGINEER 2,000 Units heparin injection 2,000 Units 2,000 Units, IV, ONE TIME ONLY, 1 dose, On Sat04/16/19 at 1000, Routine, DO NOT DISPENSE ALREADY HAVE DOSE, THANKS! Given 04/15/2019 2:18 PM SENIOR COMMUNICATIONS ENGINEER 2,000 Un its HYDROmorphone (DILAUDID) 2 mg/mL injection 0.5 mg 0.5 mg, IV, EVERY 2 HOURS PRN, Starting on 04/12/19 at 0358, Until Sat04/15/19 at 0941, Pain (See admin instructions), Routine Given 04/15/2019 8:23 AM SENIOR COMMUNICATIONS ENGINEER 0.5 mg Given 04/15/2019 3:21 AM SENIOR COMMUNICATIONS ENGINEER 0.5 mg Given 04/15/2019 1:11 AM SENIOR COMMUNICATIONS ENGINEER 0.5 mg HYDROmorphone (DILAUDID) 2 mg/mL injection 0.5 mg 0.5 mg, IV, EVERY 4 HOURS PRN, Starting on Sat04/15/19 at 1230, Until Sat04/16/19 at 1048, Pain (See admin instructions), Routine Given 04/16/2019 10:2 1 AM SENIOR COMMUNICATIONS ENGINEER 0.5 mg Given 04/16/2019 5:59 AM SENIOR COMMUNICATIONS ENGINEER 0.5 mg Given 04/16/2019 1:44 AM SENIOR COMMUNICATIONS ENGINEER 0.5 mg insulin glargine (LANTUS) injection 12 Units 12 Units, subCUT, DAILY, First dose (after last modification) on Sat04/13/19 at 1030, Until Discontinued, Routine, Discontinue insulin drip and dextrose fluids 2 hours after Lantus given. Call with questions. [phone] Given 04/13/2019 11:09 AM SENIOR COMMUNICATIONS ENGINEER 12 Units Right Arm insulin glargine (LANTUS) injection 16 Units 16 Units, subCUT, DAILY, First dose (after last modification) on Sat04/14/19 at 0900, Until Discontinued, Routine, Discontinue insulin drip and dextrose fluids 2 hours after Lantus given. Call with questions. [phone] Given 04/16/2019 9:12 AM SENIOR COMMUNICATIONS ENGINEER 16 Units Arm, Left Given 04/15/2019 8:21 AM SENIOR COMMUNICATIONS ENGINEER 16 Units Ar m, Left Upper Given 04/14/2019 8:01 AM SENIOR COMMUNICATIONS ENGINEER 16 Units Ar m, Right Upper insulin lispro (HumaLOG) injection 2 Units 2 Units, subCUT, THREE TIMES DAILY WITH MEALS, First dose on Sat04/16/19 at 0700, Until Discontinued, Routine Given 04/16/2019 1:38 PM SENIOR COMMUNICATIONS ENGINEER 2 Units Arm, Left Given 04/16/2019 9:11 AM SENIOR COMMUNICATIONS ENGINEER 2 Units Ar m, Left insulin lispro (HumaLOG) variable dose injection subCUT, EVERY 4 HOURS, First dose on Sat04/13/19 at 1200, Until Discontinued, Routine Given 04/15/2019 8:04 PM SENIOR COMMUNICATIONS ENGINEER 3 Units Arm, Right Given 04/14/2019 9:24 PM SENIOR COMMUNICATIONS ENGINEER 1 Units Ar m, Right Given 04/14/2019 5:14 PM SENIOR COMMUNICATIONS ENGINEER 1 Units Ar m, Left Upper insulin lispro (HumaLOG) variable dose injection subCUT, FOUR TIMES DAILY WITH MEALS AND AT BEDTIME, First dose (after last modification) on Katie 04/16/19 at 0700, Until Discontinued, Routine insulin regular (HUMULIN R,NOVOLIN R) 1 Units/mL in sodium chloride 0.9% infusion 0-25 Units/hr (0-25 mL/hr), IV, TITRATE, Starting on 04/12/19 at 0415, Until [facility] 04/16/19 at 0112 Rate Change 04/13/2019 11:07 AM SENIOR COMMUNICATIONS ENGINEER 2 Units/hr 2 mL/hr Rate Verify 04/13/2019 10:09 AM SENIOR COMMUNICATIONS ENGINEER 3 Units/hr 3 mL/hr Rate Verify 04/13/2019 9:09 AM SENIOR COMMUNICATIONS ENGINEER 3 Units/hr 3 mL/hr iopamidol (ISOVUE-300) 61 % injection 100 mL 100 mL, IV, INTRA-PROCEDURE ONCE, 1 dose, Starting on [place] 04/12/19 at 0150, Until [place] 04/12/19 at 0207, Routine Contrast Given 04/12/2019 2:07 AM SENIOR COMMUNICATIONS ENGINEER 100 mL levothyroxine (SYNTHROID) tablet 200 mcg 200 mcg, Oral, DAILY, First dose on [place] 04/12/19 at 0600, Until Discontinued, Routine Given 04/16/2019 6:03 AM SENIOR COMMUNICATIONS ENGINEER 200 mcg Given 04/15/2019 8:27 AM SENIOR COMMUNICATIONS ENGINEER 200 mcg Given 04/14/2019 4:06 AM SENIOR COMMUNICATIONS ENGINEER 200 mcg LORazepam (ATIVAN) tablet 1 mg 1 mg, Oral, TWO TIMES DAILY PRN, Starting on [place] 04/12/19 at 0355, Until [facility] 04/16/19 at 1842, Anxiety, Routine Given 04/16/2019 12:03 PM SENIOR COMMUNICATIONS ENGINEER 1 mg Given 04/16/2019 12:33 AM SENIOR COMMUNICATIONS ENGINEER 1 mg Given 04/14/2019 8:35 PM SENIOR COMMUNICATIONS ENGINEER 1 mg magnesium hydroxide (MILK OF MAGNESIA) oral suspension 30 mL 30 mL, Oral, ONE TIME ONLY, 1 dose, On [place] 04/16/19 at 0900, Routine Given 04/16/2019 9:17 AM SENIOR COMMUNICATIONS ENGINEER 30 mL MORPHINE 10 MG/ML INJECTION SOLUTION (CABINET OVERRIDE) 1 dose, Starting on 04/12/19 at 0218, Until 04/12/19 at 0220, Brianna IRIZARRY: cabinet override morphine injection 5 mg 5 mg, IV, ONE TIME ONLY, 1 dose, On 04/12/19 at 0030, Routine Given 04/12/2019 12:30 AM SENIOR COMMUNICATIONS ENGINEER 5 mg morphine injection 5 mg 5 mg, IV, ONE TIME ONLY, 1 dose, On 04/12/19 at 0100, Routine Given 04/12/2019 1:22 AM SENIOR COMMUNICATIONS ENGINEER 5 mg morphine injection 5 mg 5 mg, IV, ONE TIME ONLY, 1 dose, On 04/12/19 at 0230, Stat Given 04/12/2019 2:20 AM SENIOR COMMUNICATIONS ENGINEER 5 mg ondansetron (ZOFRAN ODT) tablet 4 mg 4 mg, Sublingual, EVERY 6 HOURS PRN, Starting on 04/12/19 at 0359, Until Sat04/12/19 at 1156, Nausea, Routine Given 04/12/2019 8:02 AM SENIOR COMMUNICATIONS ENGINEER 4 mg Given 04/12/2019 4:22 AM SENIOR COMMUNICATIONS ENGINEER 4 mg ondansetron (ZOFRAN) 4 mg/2 mL injection 4 mg 4 mg, IV, ONE TIME ONLY, 1 dose, On 04/12/19 at 0030, Routine Given 04/12/2019 12:30 AM SENIOR COMMUNICATIONS ENGINEER 4 mg ondansetron (ZOFRAN) 4 mg/2 mL injection 4 mg 4 mg, IV, EVERY 6 HOURS PRN, Starting on Sat04/12/19 at 1154, Until [facility] 04/16/19 at 1842, Nausea/Emesis, Routine Given 04/14/2019 4:06 PM SENIOR COMMUNICATIONS ENGINEER 4 mg oxyCODONE-acetaminophen (PERCOCET) 5-325 mg per tablet 1 Tablet 1 Tablet, Oral, EVERY 4 HOURS PRN, Starting on Sat04/15/19 at 0940, Until [place] 04/16/19 at 1842, Pain (See admin instructions), Routine Given 04/16/2019 1:37 PM SENIOR COMMUNICATIONS ENGINEER 1 Tablet Given 04/16/2019 9:10 AM SENIOR COMMUNICATIONS ENGINEER 1 Tablet Given 04/16/2019 4:57 AM SENIOR COMMUNICATIONS ENGINEER 1 Tablet pantoprazole (PROTONIX) tablet 40 mg 40 mg, Oral, TWO TIMES DAILY, First dose on 04/12/19 at 0900, Until Discontinued, Routine Given 04/16/2019 8:06 AM SENIOR COMMUNICATIONS ENGINEER 40 mg Given 04/15/2019 9:42 PM SENIOR COMMUNICATIONS ENGINEER 40 mg Given 04/15/2019 8:21 AM SENIOR COMMUNICATIONS ENGINEER 40 mg polyethylene glycol (MIRALAX) packet 17 Gram 17 Gram, Oral, DAILY, First dose on Sat04/15/19 at 0945, Until Discontinued, Routine Given 04/16/2019 8:06 AM SENIOR COMMUNICATIONS ENGINEER 17 Grams Given 04/15/2019 11:30 AM SENIOR COMMUNICATIONS ENGINEER 17 Grams potassium Cl 20 mEq in dextrose 5% - NaCl 0.9% 1000 mL infusion IV, at 125 mL/hr, CONTINUOUS, Starting on Sat04/12/19 at 0415, Until [facility] 04/16/19 at 0346, Routine New Bag 04/14/2019 12:19 PM SENIOR COMMUNICATIONS ENGINEER 125 mL/hr Rate Verify 04/14/2019 6:00 AM SENIOR COMMUNICATIONS ENGINEER 125 mL/hr Rate Verify 04/14/2019 5:00 AM SENIOR COMMUNICATIONS ENGINEER 125 mL/hr sennosides-docusate sodium (SENNA-S) 8.6-50 mg per tablet 1 Tablet 1 Tablet, Oral, DAILY, First dose on Sat04/16/19 at 0915, Until Discontinued, Routine Given 04/16/2019 9:17 AM SENIOR COMMUNICATIONS ENGINEER 1 Tablet sodium chloride 0.9% bolus solution 1,000 mL 1,000 mL, IV, ONE TIME ONLY, 1 dose, On Sat04/12/19 at 0000, at 999 mL/hr, Administer over 60 Minutes, Routine Bolus 04/12/2019 12:25 AM SENIOR COMMUNICATIONS ENGINEER 1,000 mL 999 mL/hr sodium chloride 0.9% bolus solution 1,000 mL 1,000 mL, IV, ONE TIME ONLY, 1 dose, On Sat04/12/19 at 0400, at 2,000 mL/hr, Administer over 30 Minutes, Routine New Bag 04/12/2019 4:46 AM SENIOR COMMUNICATIONS ENGINEER 1,000 mL 2000 mL/hr sodium chloride flush injection 10 mL 10 mL, IV, ONE TIME ONLY, 1 dose, On Sat04/12/19 at 0200, Routine Given 04/12/2019 2:07 AM SENIOR COMMUNICATIONS ENGINEER 10 mL traZODone (DESYREL) tablet 100 mg 100 mg, Oral, DAILY AT BEDTIME, First dose on Sat04/12/19 at 2100, Until Discontinued, Routine Given 04/15/2019 9:42 PM SENIOR COMMUNICATIONS ENGINEER 100 mg Given 04/14/2019 8:35 PM SENIOR COMMUNICATIONS ENGINEER 100 mg Given 04/13/2019 8:59 PM SENIOR COMMUNICATIONS ENGINEER 100 mg documented in this encounter Active and Recently Administered Medications Times are shown in SENIOR COMMUNICATIONS ENGINEER. Scheduled Medication Order 04/14/2019 04/15/2019 04/16/2019 atorvastatin (LIPITOR) tablet 80 mg 80 mg, Oral, DAILY AT BEDTIME, First dose on 04/12/19 at 2100, Until Discontinued, Routine 2034 (Given - Provider: Bart Daniels RN) 2141 (Given - Provider: Bart Daniels RN) citalopram (CeleXA) tablet 40 mg 40 mg, Oral, DAILY AT BEDTIME, First dose on 04/12/19 at 2100, Until Discontinued, Routine 2034 (Given - Provider: Bart Daniels RN) 2141 (Given - Provider: Bart Daniels RN) dextrose 5% - sodium chloride 0.9% infusion IV, at 40 mL/hr, SEE ADMIN INSTRUCTIONS, Starting on 04/12/19 at 0357, Until [place] 04/16/19 at 1842, Routine dextrose 50% (D50) syringe 12.5 Gram 12.5 Gram, IV, SEE ADMIN INSTRUCTIONS, Starting on 04/12/19 at 0357, Until [place] 04/16/19 at 1842, Routine dextrose 50% (D50) syringe 25 Gram 25 Gram, IV, SEE ADMIN INSTRUCTIONS, Starting on 04/12/19 at 0357, Until [place] 04/16/19 at 1842, Routine enoxaparin (LOVENOX) injection 40 mg 40 mg, subCUT, EVERY 24 HOURS, First dose on 04/12/19 at 0800, Until Discontinued, Routine, Indication: Prophylaxis of VTE, Dose to be adjusted per facility protocol? Yes 0904 (Given - Provider: Genoveva Alberts RN) 08 (Given - Provider: Genoveva Alberts RN) 08 (Given - Provider: Thuy Tompkins RN) fenofibrate (LOFIBRA) tablet 160 mg 160 mg, Oral, DAILY, First dose on 04/12/19 at 0900, Until Discontinued, Routine 09 (Given - Provider: Genoveva Alberts RN) 0821 (Given - Provider: Genoveva Alberts RN) 0806 (Given - Provider: Thuy Tompkins RN) glucagon HCl 1 mg injection 1 mg 1 mg, IM, SEE ADMIN INSTRUCTIONS, Starting on Sat04/12/19 at 0357, Until Sat04/16/19 at 1842, Routine heparin injection 2,000 Units (COMPLETED) 2,000 Units, IV, ONE TIME ONLY, 1 dose, On Sat04/16/19 at 1000, Routine, DO NOT DISPENSE ALREADY HAVE DOSE, THANKS! 1418 (Given - Provider: Puja Paz RN) 1000 (Canceled Entry - Provider: Puja Paz, CLAU) insulin glargine (LANTUS) injection 16 Units 16 Units, subCUT, DAILY, First dose (after last modification) on Sat04/14/19 at 0900, Until Discontinued, Routine, Discontinue insulin drip and dextrose fluids 2 hours after Lantus given. Call with questions. [phone] 0801 (Given - Provider: Genoveva Alberts RN) 0821 (Given - Provider: Genoveva Alberts RN) 0912 (Given - Provider: Thuy Tompkins, CLAU) insulin lispro (HumaLOG) injection 2 Units 2 Units, subCUT, THREE TIMES DAILY WITH MEALS, First dose on Sat04/16/19 at 0700, Until Discontinued, Routine 0911 (Given - Provider: Thuy Tompkins RN)1338 (Given - Provider: Thuy Tompkins RN - Comment: 168) insulin lispro (HumaLOG) variable dose injection (CANCELED) subCUT, EVERY 4 HOURS, First dose on Sat04/13/19 at 1200, Until Discontinued, Routine 0029 (Given - Provider: Ghada Galo RN - Comment: BG 208)0407 (Given - Provider: Ghada Galo RN - Comment: BG 220)0800 (Given - Provider: Genoveva Alberts RN - Comment: [id number] (Not Given - Provider: Genoveva Alberts RN - Reason: Lab results - Comment: [id number] (Given - Provider: Genoveva Alberts RN - Comment: [id number] (Given - Provider: Bart Daniels RN - Comment: bg 191) 0100 (Not Given - Provider: Bart Daniels RN - Reason: Lab results - Comment: bg 120)0400 (Not Given - Provider: Bart Daniels RN - Reason: Lab results - Comment: bg 133)0740 (Not Given - Provider: Genoveva Alberts RN - Reason: Lab results)1210 (Not Given - Provider: Genoveva Alberts RN - Reason: Lab results)1628 (Not Given - Provider: Genoveva Alberts RN - Reason: Lab results - Comment: [id number] (Given - Provider: Bart Daniels RN - Comment: bg 278) 0000 (Not Given - Provider: Bart Daniels RN - Reason: Lab results - Comment: bg 175) insulin lispro (HumaLOG) variable dose injection subCUT, FOUR TIMES DAILY WITH MEALS AND AT BEDTIME, First dose (after last modification) on Sat04/16/19 at 0700, Until Discontinued, Routine 09 (Not Given - Provider: Thuy Tompkins RN - Reason: Lab results)1200 (Not Given - Provider: Thuy Tompkins RN - Reason: Lab results - Comment: 168) levothyroxine (SYNTHROID) tablet 200 mcg 200 mcg, Oral, DAILY, First dose on Sat04/12/19 at 0600, Until Discontinued, Routine 040 (Given - Provider: Ghada Galo RN) 08 (Given - Provider: Genoveva Alberts RN) 06 (Given - Provider: Yady Medel RN) magnesium hydroxide (MILK OF MAGNESIA) oral suspension 30 mL (COMPLETED) 30 mL, Oral, ONE TIME ONLY, 1 dose, On Sat04/16/19 at 0900, Routine 916 (Given - Provider: Thuy Tompkins RN) naloxone (NARCAN) 0.4 mg/mL injection 0.1 mg 0.1 mg, IV, SEE ADMIN INSTRUCTIONS, Starting on Sat04/12/19 at 0359, Until Sat04/16/19 at 1842, Routine pantoprazole (PROTONIX) tablet 40 mg 40 mg, Oral, TWO TIMES DAILY, First dose on Sat04/12/19 at 0900, Until Discontinued, Routine 903 (Given - Provider: Genoveva Alberts RN)2034 (Given - Provider: Bart Daniels RN) 0821 (Given - Provider: Genoveva Alberts RN)214 (Given - Provider: Bart Daniels RN) 08 (Given - Provider: Thuy Tompkins, CLAU) polyethylene glycol (MIRALAX) packet 17 Gram 17 Gram, Oral, DAILY, First dose on Sat04/15/19 at 0945, Until Discontinued, Routine 1130 (Given - Provider: Genoveva Alberts RN) 08 (Given - Provider: Thuy Tompkins, CLAU) sennosides-docusate sodium (SENNA-S) 8.6-50 mg per tablet 1 Tablet 1 Tablet, Oral, DAILY, First dose on Sat04/16/19 at 0915, Until Discontinued, Routine 916 (Given - Provider: Thuy Tompkins, CLAU) traZODone (DESYREL) tablet 100 mg 100 mg, Oral, DAILY AT BEDTIME, First dose on Sat04/12/19 at 2100, Until Discontinued, Routine 2034 (Given - Provider: Bart Daniels RN) 214 (Given - Provider: Bart Daniels RN) Continuous Medication Order 04/14/2019 04/15/2019 04/16/2019 potassium Cl 20 mEq in dextrose 5% - NaCl 0.9% 1000 mL infusion (CANCELED) IV, at 125 mL/hr, CONTINUOUS, Starting on Sat04/12/19 at 0415, Until Sat04/16/19 at 0346, Routine 0000 (Rate Verify - Provider: Ghada Gaol RN)0028 (Bag Switched - Provider: Ghada Galo RN)0100 (Rate Verify - Provider: Ghada Galo RN)0200 (Rate Verify - Provider: Ghada Galo RN)0409 (Paused - Provider: Ghada Galo RN)0415 (Paused - Provider: Ghada Galo RN)0415 (Rate Change - Provider: Ghada Galo RN)0500 (Rate Verify - Provider: Ghada Galo RN)0600 (Rate Verify - Provider: Ghada Galo RN)1219 (New Bag - Provider: Genoveva Alberts RN)1721 (Stopped - Provider: Genoveva Alberts RN - Comment: Per Lian DATA ENTRY MANAGER) PRN Medication Order 04/14/2019 04/15/2019 04/16/2019 bisacodyl (DULCOLAX) rectal suppository 10 mg 10 mg, Rectal, DAILY PRN, Starting on Sat04/12/19 at 0359, Until Sat04/16/19 at 1842, Constipation, Routine diphenhydrAMINE (BENADRYL) tablet 25 mg 25 mg, Oral, EVERY 6 HOURS PRN, Starting on Sat04/12/19 at 0359, Until Sat04/16/19 at 1842, Itching, Routine 1605 (Given - Provider: Sharri Olmedo RN)2246 (Given - Provider: Bart Daniels RN) 2144 (Given - Provider: Bart Daniels RN) docusate sodium (COLACE) capsule 100 mg 100 mg, Oral, TWO TIMES DAILY PRN, Starting on Sat04/12/19 at 0359, Until Sat04/16/19 at 1842, Constipation, Routine HYDROmorphone (DILAUDID) 2 mg/mL injection 0.5 mg (CANCELED) 0.5 mg, IV, EVERY 2 HOURS PRN, Starting on Sat04/12/19 at 0358, Until Sat04/15/19 at 0941, Pain (See admin instructions), Routine 0410 (Given - Provider: Ghada Galo RN)0758 (Given - Provider: Genoveva Alberts RN)1042 (Given - Provider: Genoveva Alberts RN)1256 (Given - Provider: Genoveva Alberts RN)1512 (Given - Provider: Genoveva Alberts RN)1753 (Given - Provider: Genoveva Alberts RN)2035 (Given - Provider: Bart Daniels RN)2242 (Given - Provider: Bart Daniels RN) 0111 (Given - Provider: Bart Daniels RN)0321 (Given - Provider: Bart Daniels RN)0823 (Given - Provider: Genoveva Alberts, CLAU) HYDROmorphone (DILAUDID) 2 mg/mL injection 0.5 mg (CANCELED) 0.5 mg, IV, EVERY 4 HOURS PRN, Starting on Sat04/15/19 at 1230, Until [place] 04/16/19 at 1048, Pain (See admin instructions), Routine 1503 (Given - Provider: Genoveva Alberts RN)2019 (Given - Provider: Humaira Carmen RN) 0144 (Given - Provider: Yady Medel, RN)0559 (Given - Provider: Yady Medel, RN)1021 (Given - Provider: Thuy Tompkins, RN) LORazepam (ATIVAN) tablet 1 mg 1 mg, Oral, TWO TIMES DAILY PRN, Starting on Sat04/12/19 at 0355, Until [place] 04/16/19 at 1842, Anxiety, Routine 2035 (Given - Provider: Bart Daniels RN) 0033 (Given - Provider: Bart Daniels RN)1203 (Given - Provider: Thuy Tompkins RN) ondansetron (ZOFRAN) 4 mg/2 mL injection 4 mg 4 mg, IV, EVERY 6 HOURS PRN, Starting on Sat04/12/19 at 1154, Until Sat04/16/19 at 1842, Nausea/Emesis, Routine 1606 (Given - Provider: Sharri Olmedo RN) oxyCODONE-acetaminophe n (PERCOCET) 5-325 mg per tablet 1 Tablet 1 Tablet, Oral, EVERY 4 HOURS PRN, Starting on Sat04/15/19 at 0940, Until [place] 04/16/19 at 1842, Pain (See admin instructions), Routine 1125 (Given - Provider: Genoveva Alberts RN)1627 (Given - Provider: Genoveva Alberts RN) 0033 (Given - Provider: Bart Daniels RN)0457 (Given - Provider: Yady Medel, CLAU)0910 (Given - Provider: Thuy Tompkins, CLAU)1337 (Given - Provider: Thuy Tompkins, CLAU) prochlorperazine (COMPAZINE) injection 10 mg 10 mg, IV, EVERY 6 HOURS PRN, Starting on 04/12/19 at 0359, Until [place] 04/16/19 at 1842, Nausea/Emesis, Routine documented in this encounter Care Teams T[employer] Mold Engraver Relationship Specialty Start Date End Date Guerrero Middleton PA-C PCP - General Physician [employer] 02/13[birth year] documented as of this encounter
--- OUTSIDE RECORDS SUMMARY | 2024-05-03 20:43 | XMS_ITS | Encounter Summary ---
Author Organization [facility] Address [address] [place] [address] Care Team Providers Care Behavior Specialist Name Role Phone Guerrero Middleton PA-C Primary Care Provide r Encounter Details Date Type Department Care Team (Latest Contact Info) Description 03/04/2019 10:00 AM COMPOSITE ENGINEER - 03/04/2019 11:59 PM [facility] Hospital Encounter [facility] Blood Bank Donor Center [facility] [address] [place] [address] Alize Arteaga MD NO ADDRESS ON FILE [...] any clubs o r organizations such as pentecostal groups, unions, fraternal or athletic groups, or [...] Sign Reading Time Taken Comments Blood Pressure 112/74 03/04/2019 1:30 PM COMPOSITE ENGINEER Pulse 90 03/04/2019 1:30 PM COMPOSITE ENGINEER Temperature 36.7 ??C (98 ??F) 03/04/2019 1:30 PM COMPOSITE ENGINEER Respiratory Rate 16 03/04/2019 1:30 PM COMPOSITE ENGINEER Oxygen Saturation - - Inhaled Oxygen Concentration [...] of this encounter Progress Notes * Daniel Whitehead, CLAU - 03/04/2019 10:00 AM CST Plasma exchange completed today using right and left chest BARD port for draw and return. 1.0 volume, 100% fluid balance using 5% Albumin as replacement fluid completed. 2 grams calcium gluconate given intra procedure. Patient tolerated procedure well. Left chest BARD port required Cathflo due to no blood return initially. After Cathflo was allowed to dwell for 1 hour, there was good draw and return pressure in line. Next procedure scheduled for Monday, March 11, 2019. 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 ?? Interval history: ?Feeling tired, with nausea and headaches. Reports she feels port insertion site on L chest not healing as it should. ?? PMH: ??Hypertriglyceridemia (associated with prior episodes [...] pink scar -L chest port site has a small amount of erythema surrounding it with some crusting over the scab. Respiratory: - Unlabored breathing Neuro: - Alert and Oriented x 3 - Normal Affect ?Labs: 02/18/19: WBC 10.7, Hgb 12.3, Hct 36.7, Plt 289 03/04/19: triglyceride 1,268. (preprocedure) ?? A&P: 1. 43??yo female with??recurrent??hypertriglyceridemic [...] to modify plan based on triglyceride results. 4.??New port 02/18/19. Discussed L port with Dr. Willoughby with IR. Dr. Willoughby prescribed a seven day course of oral antibiotics for the patient to milk pickup driver at her local pharmacy. Explained to patient that we want to make sure this heals properly and prevent an infection. Patient advised to present to the ER if she develops systemic symptoms such as fever or chills and to finish entire course of antibiotics, even if she is feeling well. 6.?Still have not established steady state maintenance. ??We will continue with one procedure per week. ?? I have seen and examined the patient, reviewed pertinent notes and records, and remained immediately available throughout the procedure. ?? Alize Arteaga MD, PhD Pockets And Pieces Necktie Operator, therapeutic apheresis service [phone] ?? Procedure??notes: Cathflo needed to get adequate return in L BARD powerflow port. Patient toleratedprocedure well.?? OSITE ENGINEER documented in this encounter Plan of Treatment Upcoming Encounters Date Type Department Care Team (Late st Contact Info) Description 09/14/2024 3:00 PM CDT Office Visit [facility] Heart and Vascular - [facility] [id number] [place] [address] Marlys Mayer MD [address] [place] [address] documented as of this encounter Procedures Procedure Name Priority Date/Time Associated Diagnosis Comments TRIGLYCERIDE Routine 03/04/2019 10:31 AM COMPOSITE ENGINEER Metabolic syndrome History of gestational diabetes Family [...] in this encounter Results * (ABNORMAL) TRIGLYCERIDE (03/04/2019 10:31 AM COMPOSITE ENGINEER) TRIGLYCERIDE 1,268(H) <150 mg/dL 03/04/2019 11:15 AM COMPOSITE ENGINEER [facility] Blood Collection / Unknown 03/04/2019 10:31 AM COMPOSITE ENGINEER 03/04/2019 10:32 AM COMPOSITE ENGINEER Narrative [facility] - 03/04/2019 11:15 AM COMPOSITE ENGINEER TRIGLYCERIDES ? mg/dL Normal ?< 150 Borderline High ?150 - 199 High ? 200 - 499 Very High ? >= 500 Based on AHA/NCEP Guidelines. Alize Arteaga MD CHEMISTRY ORDER [facility]# [id number] [address] [place] [address] documented in this encounter Visit Diagnoses Diagnosis [...] Dwell, ONE TIME ONLY, 1 dose, On Sat03/04/19 at 1045, Stat, Please tube to station 516. STAT Given 03/04/2019 11:01 AM COMPOSITE ENGINEER 2 mg Chest, Left calcium GLUCONATE 2,000 mg in sodium chloride 0.9% 120 mL IVPB 2,000 mg, IV, INTRA-PROCEDURE ONCE, 1 dose, Starting on Sat03/04/19 at 1000, Until Sat03/04/19 at 1320, Routine New Bag 03/04/2019 12:20 PM COMPOSITE ENGINEER 2,000 mg 240 mL/hr heparin injection 2,000 Units 2,000 Units, IV, ONE TIME ONLY, 1 dose, On Sat03/04/19 at 1000, Routine, PLEASE TUBE TO STATION 516. Given 03/04/2019 1:49 PM COMPOSITE ENGINEER 2,000 Units heparin injection 2,000 Units 2,000 Units, IV, ONE TIME ONLY, 1 dose, On Sat03/04/19 at 1000, Routine, PLEASE TUBE TO STATION 516. Given 03/04/2019 1:36 PM COMPOSITE ENGINEER 2,000 Units water sterile injection See Admin Instructions, ONE TIME ONLY, 1 dose, On Sat03/04/19 at 1045, Routine Given 03/04/2019 11:01 AM COMPOSITE ENGINEER 10 mL Chest, Left documented in this encounter Care Teams Behavior Specialist Relationship Specialty Start Date End Date Guerrero Middleton PA-C PCP - General Physician Residential Aide 02/13/18 documented as of this encounter
--- OUTSIDE RECORDS SUMMARY | 2024-05-03 20:43 | XMS_ITS | Encounter Summary ---
Author Organization [facility] Address [address] [place] [address] Care Team Providers Care Racing Driver Name Role Phone Guerrero Middleton PA-C Primary Care Provide r Encounter Details Date Type Department Care Team (Latest Contact Info) Description 01/28/2019 10:00 AM CDT - 01/28/2019 11:59 PM T Hospital Encounter [facility] Blood Bank Donor Center S [facility] [address] [place] [address] Alize Arteaga MD NO ADDRESS ON FILE [...] Reading Time Taken Comments Blood Pressure 115/75 01/28/2019 12:15 PM CDT Pulse 99 01/28/2019 12:15 PM CDT Temperature 36.4 ??C (97.6 ??F) 01/28/2019 12:15 PM C DT Respiratory Rate 16 01/28/2019 12:15 PM CDT Oxygen Saturation - - Inhaled [...] Progress Notes * Robyn Hernandez RN - 01/28/2019 10:00 AM CDT Plasma exchange completed today using right chest BARD ports. 1.0 volume, 100% fluid balance using 5% Albumin as replacement fluid completed. 2 grams calcium gluconate given intra procedure. ??Patient tolerated procedure well. 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 ?? Interval history: ?Feeling ok lately. Some nausea, but not terrible. ?? PMH: ??Hypertriglyceridemia (associated with prior episodes [...] edema Skin: - Inspection: No rashes evident -??No erythema, induration or drainage observed??at port site. Respiratory: - Unlabored breathing Neuro: - Alert and Oriented x 3 - Normal Affect ?? Labs:??triglycerides??612 (pre) ?? A&P: 1. 43??yo female with??recurrent??hypertriglyceridemic [...] modify plan based on triglyceride results. 4. Patient??complains of port discomfort. ??Evaluated by IR at end of November. ??Plan is for three months of watchful waiting. ??To revisit at end of February 2019. ??Per nursing evaluation, medial port seems to be settling into place 6.?Still have not established steady state maintenance. ??We will do at one procedure per week for the next two weeks. ?? I have seen and examined the patient, reviewed pertinent notes and records, and remained immediately available throughout the procedure. ?? Alize Arteaga MD, PhD Orthopaedic Nurse, therapeutic apheresis service [phone] ?? Procedure??notes: Patient tolerated procedure well.?Patient continues to complain of pain aroundmedial port site and nursing confirmed that the medial port seems to have settled into position closer to the lateral port than it was originally; this may be the natural course of port maturation. No signs of infection or gross malpositioning of the port. Port worked appropriately for procedure. We will continue to monitor. We will have the BARD rep come examine the port at one of the next procedures. documented in this encounter Plan of Treatment Upcoming Encounters Date Type Department Care Team (Late st Contact Info) Description 09/14/2024 3:00 PM CDT Office Visit [facility] Heart and Vascular - [facility] [address] [place] [address] Marlys Mayer MD [address] [place] [address] documented as of this encounter Procedures Procedure Name Priority Date/Time Associated Diagnosis Comments TRIGLYCERIDE Routine 01/28/2019 10:51 AM CDT Metabolic syndrome History of gestational [...] in this encounter Results * (ABNORMAL) TRIGLYCERIDE (01/28/2019 10:51 AM CDT) TRIGLYCERIDE 612(H) <150 mg/dL 01/28/2019 11:49 AM CDT [facility] [employer] [facility] Blood Collection / Unknown 01/28/2019 10:51 AM CDT 01/28/2019 10:51 AM CDT Narrative [facility] [employer] [facility] - 01/28/2019 11:49 AM CDT TRIGLYCERIDES ? mg/dL Normal ?< 150 Borderline High ?150 - 199 High ? 200 - 499 Very High ? >= 500 Based on AHA/NCEP Guidelines. Alize Arteaga MD CHEMISTRY ORDER [facility] [employer] [facility]# [id number] [address] [place] [address] documented in this encounter Visit Diagnoses Diagnosis [...] IV, INTRA-PROCEDURE ONCE, 1 dose, Starting on Sat01/28/19 at 1000, Until Sat01/28/19 at 1130, Routine New Bag 01/28/2019 11:00 AM CDT 2,000 mg 240 mL/hr heparin injection 2,000 Units 2,000 Units, IV, ONE TIME ONLY, 1 dose, On Sat01/28/19 at 1000, Routine, PLEASE TUBE TO STATION 516. Given 01/28/2019 12:02 PM CDT 2,000 Units heparin injection 2,000 Units 2,000 Units, IV, ONE TIME ONLY, 1 dose, On Sat01/28/19 at 1000, Routine, PLEASE TUBE TO STATION 516. Given 01/28/2019 12:01 PM CDT 2,000 Units documented in this encounter Care Teams Racing Driver Relationship Specialty Start Date End Date Guerrero Middleton PA-C PCP - General Physician Fiberglass Grinder 02/13/18 documented as of this encounter
--- OUTSIDE RECORDS SUMMARY | 2024-05-03 20:43 | XMS_ITS | Encounter Summary ---
Author Organization [facility] Address [address] [place] [address] Care Team Providers Care Tearoom Host Name Role Phone Guerrero Middleton PA-C Primary Care Provide r Encounter Details Date Type Department Care Team (Latest Contact Info) Description 05/06/2019 9:37 AM CERTIFIED SHORTHAND REPORTER - 05/06/2019 11:59 PM CERTIFIED SHORTHAND REPORTER Hospital Encounter [facility] Blood Bank Donor Center [facility] [address] [place] [address] Alize Arteaga MD NO ADDRESS ON FILE [...] often do you attend chur ch or congregational services? Never 08/21/2018 Do you belong to [...] 1 Tablet (10 mg) by mouth daily boiler engineer. 30 Tablet 5 04/08/2019 10/12/2019 levothyroxine 200 [...] Progress Notes * Puja Paz RN - 05/06/2019 10:00 AM CST Triglyceride level drawn and resulted at 380. Okay per Dr. Arteaga to not do the procedure today.Next procedure scheduled for Saturday05/11/19 after port replacement. IFIED SHORTHAND REPORTER documented in this encounter Plan of Treatment Upcoming Encounters Date Type Department Care Team (Late st Contact Info) Description 09/14/2024 3:00 PM CDT Office Visit [facility] [address] [place] [address] Marlys Mayer MD [address] [place] [address] documented as of this encounter Procedures Procedure Name Priority Date/Time Associated Diagnosis Comments TRIGLYCERIDE Stat 05/06/2019 9:45 AM CERTIFIED SHORTHAND REPORTER Hypertriglyceridemia Mixed hyperlipidemia documented in this encounter Results * (ABNORMAL) TRIGLYCERIDE (05/06/2019 9:45 AM CERTIFIED SHORTHAND REPORTER) TRIGLYCERIDE 380(H) <150 mg/dL 05/06/2019 10:22 AM CERTIFIED SHORTHAND REPORTER [facility] [employer] [facility] Blood Collection / Unknown 05/06/2019 9:45 AM CERTIFIED SHORTHAND REPORTER 05/06/2019 9:50 AM CERTIFIED SHORTHAND REPORTER Narrative [facility] [employer] [facility] - 05/06/2019 10:22 AM CERTIFIED SHORTHAND REPORTER TRIGLYCERIDES ? mg/dL Normal ?< 150 Borderline High ?150 - 199 High ? 200 - 499 Very High ? >= 500 Based on AHA/NCEP Guidelines. Alize Arteaga MD CHEMISTRY ORDER [facility] [employer] [facility]# [id number] [address] [place] [address] documented in this encounter Visit Diagnoses Diagnosis Hypertriglyceridemia- Primary Pure hyperglyceridemia Mixed hyperlipidemia documented in this encounter Care Teams Tearoom Host Relationship Specialty Start Date End Date Guerrero Middleton PA-C PCP - General Physician Health Promoter 02/13/18 documented as of this encounter
--- OUTSIDE RECORDS SUMMARY | 2024-05-03 20:43 | XMS_ITS | Encounter Summary ---
Author Organization [facility] Address [address] [place] [address] Care Team Providers Care Steam Fitter Name Role Phone Guerrero Middleton PA-C Primary Care Provide r Encounter Details Date Type Department Care Team (Latest Contact Info) Description 02/25/2019 10:00 AM CDT - 02/25/2019 11:59 PM T Hospital Encounter [facility] Blood [facility] Don[facility] [address] [place] [address] Alize Arteaga MD NO ADDRESS ON FILE [...] Sign Reading Time Taken Comments Blood Pressure 124/79 02/25/2019 1:43 PM CDT Pulse 84 02/25/2019 1:43 PM CDT Temperature 36.8 ??C (98.2 ??F) 02/25/2019 1:43 PM CD T Respiratory Rate 18 02/25/2019 1:43 PM CDT Oxygen Saturation - - Inhaled [...] of this encounter Progress Notes * Robyn Hernandez, RN - 02/25/2019 2:30 PM CDT Plasma Exchange completed using R and L Chest BARD port. 1.0 Volume, 100% fluid balance using 5% Albumin as replacement fluid. Pt L chest BARD port was administered cathflo in order to received bloodreturn. Pt tolerated procedure well, without incident. Pt discharged from S A/O x4 in stable condition ambulatory to private vehicle. 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 ?? Interval history: ?Feeling ok lately. Increased nausea last few days. ?? PMH: ??Hypertriglyceridemia (associated with prior episodes of pancreatitis, received inpatient plasma exchanges 04/2018, 07/2018 and 09/2018, started on prophylactic exchanges October 2018, one port removed from R chest and new port placed in L chest 02/18/2019), DM, anxiety, GERG, HLD, hypothyroidism, PCOS ?? Meds: as per [email or web address]. ?? Exam: ?? General Appearance: - Well nourished - No acute distress Eyes: - No scleral icterus Neck: - No masses, symmetrical Cardiac: - No lower extremity edema Skin: - Inspection: No rashes evident -??Ports accessed at time of exam. No drainage or erythema noted. Respiratory: - Unlabored breathing Neuro: - Alert and Oriented x 3 - Normal Affect ?Labs: 02/18/19: WBC 10.7, Hgb 12.3, Hct 36.7, Plt 289 02/25/19: triglyceride 1,410. (preprocedure) ?? A&P: 1. 43??yo female with??recurrent??hypertriglyceridemic [...] modify plan based on triglyceride results. 4. New port 02/18/19. 6.?Still have not established steady state maintenance. ??We will do one procedure per week for the next two weeks. ?? I have seen and examined the patient, reviewed pertinent notes and records, and remained immediately available throughout the procedure. ?? Alize Arteaga MD, PhD Security Guards Dispatcher, therapeutic apheresis service [phone] ?? Procedure??notes: Cathflo needed to get adequate return in L BARD powerflow port. Patient toleratedprocedure well.? documented in this encounter Plan of Treatment Upcoming Encounters Date Type Department Care Team (Late st Contact Info) Description 09/14/2024 3:00 PM CDT Office Visit [facility] Heart and Vascular - [facility] [address] [place] [address] Marlys Mayer MD [address] [place] [address] documented as of this encounter Procedures Procedure Name Priority Date/Time Associated Diagnosis Comments TRIGLYCERIDE Routine 02/25/2019 10:38 AM CDT Hypertriglyceridemia documented in this encounter Results * (ABNORMAL) TRIGLYCERIDE (02/25/2019 10:38 AM CDT) TRIGLYCERIDE 1,410(H) <150 mg/dL 02/25/2019 11:42 AM CDT [facility] Blood Collection / Unknown 02/25/2019 10:38 AM CDT 02/25/2019 10:38 AM CDT Narrative [facility] - 02/25/2019 11:42 AM CDT TRIGLYCERIDES ? mg/dL Normal ?< 150 Borderline High ?150 - 199 High ? 200 - 499 Very High ? >= 500 Based on AHA/NCEP Guidelines. Alize Arteaga MD CHEMISTRY ORDER [facility]# [id number] [address] [place] [address] documented in this encounter Visit Diagnoses Diagnosis Hypertriglyceridemia- Primary Pure hyperglyceridemia documented in this encounter Administered Medications Inactive Administered Medications - up to 3 most recent administrations Medication Order MAR Action Action Date Dose Rate Site alteplase (CATHFLO ACTIVASE) 2 mg injection 2 mg 2 mg, Dwell, ONE TIME ONLY, 1 dose, On Sat02/25/19 at 1100, Stat, Please tube to #516 Given 02/25/2019 11:50 AM CDT 2 mg Port calcium GLUCONATE 2,000 mg in sodium chloride 0.9% 120 mL IVPB 2,000 mg, IV, INTRA-PROCEDURE ONCE, 1 dose, Starting on Sat02/25/19 at 1000, Until Sat02/25/19 at 1344, Routine New Bag 02/25/2019 12:44 PM CDT 2,000 mg 120 mL/hr heparin injection 2,000 Units 2,000 Units, IV, ONE TIME ONLY, 1 dose, On Sat02/25/19 at 1000, Routine, Please tube to 516! Thank you Given 02/25/2019 1:41 PM CDT 2,000 Units heparin injection 2,000 Units 2,000 Units, IV, ONE TIME ONLY, 1 dose, On Sat02/25/19 at 1000, Routine, Please tube to 516! Thank you! Given 02/25/2019 1:41 PM CDT 2,000 Units lidocaine (L.M.X.4) 4 % topical cream Topical, PRE-PROCEDURE ONCE, 1 dose, Starting on Sat02/25/19 at 1000, Until Sat02/25/19 at 1000, Routine, Please tube to 516! Thank you! Patient/Family Admin 02/25/2019 10:00 AM CDT Port water sterile injection See Admin Instructions, ONE TIME ONLY, 1 dose, On Sat02/25/19 at 1100, Routine Given 02/25/2019 11:51 AM CDT 10 mL Port documented in this encounter Care Teams Steam Fitter Relationship Specialty Start Date End Date Guerrero Middleton PA-C PCP - General Physician Toilet Products Molder 02/13/18 documented as of this encounter
--- OUTSIDE RECORDS SUMMARY | 2024-05-03 20:43 | XMS_ITS | Encounter Summary ---
Author Organization [facility] Address [address] [place] [address] Care Team Providers Care Cloth Shearing Supervisor Name Role Phone Guerrero Middleton PA-C Primary Care Provide r Encounter Details Date Type Department Care Team (Latest Contact Info) Description 01/07/2019 10:00 AM CDT - 01/07/2019 11:59 PM T Hospital Encounter [facility] Blood [facility] Donor [facility] [address] [place] [address] Alize Arteaga MD NO ADDRESS ON FILE [...] Sign Reading Time Taken Comments Blood Pressure 105/74 01/07/2019 11:39 AM CDT Pulse 91 01/07/2019 11:39 AM CDT Temperature 37.2 ??C (98.9 ??F) 01/07/2019 11:39 AM C DT Respiratory Rate 18 01/07/2019 11:39 AM CDT Oxygen Saturation - - Inhaled [...] Progress Notes * Robyn Hernandez RN - 01/07/2019 10:00 AM CDT Plasma exchange completed today using right chest BARD ports. 1.0 volume, 100% fluid balance using 5% Albumin as replacement fluid completed. 2 grams calcium gluconate given intra procedure. Patient tolerated procedure well. Next procedure scheduled will be Saturday01/14/[address] Arteaga. * Alize Arteaga MD - 01/07/2019 10:00 AM CDT CC: ??43??yo female with hypertriglyceridemia associated??with??recurrent necrotizing pancreatitis initiated on prophylactic plasma exchange for prevention of hypertriglyceridemic pancreatitis starting 11/12/18.??(ASFA category III indication for apheresis). ?? Interval history: Denies abdominal pain. Says she has increased energy. ?? PMH: ??Hypertriglyceridemia (associated with prior episodes of pancreatitis, received inpatient plasma exchanges 04/2018, 07/2018 and 09/2018, started on prophylactic exchanges October 2018), DM, anxiety, GERG, HLD, hypothyroidism, PCOS ?? Meds: as per Workable. ?? Exam: ??Patient resting in chair. ??Port is not accessed at time of my exam. No erythema, induration or drainage observed at port site. ?? Labs:??triglycerides??927 (pre), 377 (post) ?? A&P: 1. 43??yo female with??recurrent??hypertriglyceridemic [...] to modify plan based on triglyceride results. 4.??Triglycerides trending down. She is following a very low fat diet recommended by the doctor kamilla at [facility]. 5. Patient complained port discomfort. Evaluated by IR at end of November. Plan is for three months of watchful waiting. To revisit at end of February 2019. 6. Plan for next plex in one week. Do not need to wait for triglyceride results to treat. ?? I have seen and examined the patient, reviewed pertinent notes and records. ?? Alize Arteaga MD, PhD Clinical Studies Specialist, therapeutic apheresis service [phone] Procedure #6 notes: patient tolerated procedure well. documented in this encounter Plan of Treatment Upcoming Encounters Date Type Department Care Team (Late st Contact Info) Description 09/14/2024 3:00 PM CDT Office Visit [facility] [address] [place] [address] Marlys Mayer MD [address] [place], [place] [id number] Scheduled Orders Name Type Priority Associated Diagnoses Orde r Schedule MICROALBUMIN/CREATIN INE RATIO, RANDOM UR Lab Routine Type 2 diabetes mellitus with hyperglycemia, with long-term current use of insulin Added to HDF configuration to grandchildren will have ORD item [id number] populate with time. for 1 Occurrences starting 01/07/2019 until 01/07/2019 documented as of this encounter Procedures Procedure Name Priority Date/Time Associated Diagnosis Comments TRIGLYCERIDE Routine 01/07/2019 11:39 AM CDT Hypertriglyceridemi a TRIGLYCERIDE Stat 01/07/2019 10:26 AM CDT Hypertriglyceridemi a CBC WITHOUT DIFFERENTIAL Stat 01/07/2019 10:25 AM CDT Hypertriglyceridemi a documented in this encounter Results * (ABNORMAL) TRIGLYCERIDE (01/07/2019 11:39 AM CDT) TRIGLYCERIDE 377(H) <150 mg/dL 01/07/2019 12:19 PM CDT [facility] Blood Collection / Unknown 01/07/2019 11:39 AM CDT 01/07/2019 11:39 AM CDT [facility] [employer] [facility] - 01/07/2019 12:19 PM CDT TRIGLYCERIDES ? mg/dL Normal ?< 150 Borderline High ?150 - 199 High ? 200 - 499 Very High ? >= 500 Based on AHA/NCEP Guidelines. Alize Arteaga MD CHEMISTRY ORDER OSVALDO Performing Organization Address [facility] de Phone Number [facility] [employer] [facility]# [id number] [address] [place] [address] * (ABNORMAL) TRIGLYCERIDE (01/07/2019 10:26 AM CDT) TRIGLYCERIDE 972(H) <150 mg/dL 01/07/2019 11:12 AM CDT [facility] Blood Collection / Unknown 01/07/2019 10:26 AM CDT 01/07/2019 10:26 AM CDT [facility] - 01/07/2019 11:12 AM CDT TRIGLYCERIDES ? mg/dL Normal ?< 150 Borderline High ?150 - 199 High ? 200 - 499 Very High ? >= 500 Based on AHA/NCEP Guidelines. Alize Arteaga MD CHEMISTRY ORDER OSVALDO Performing Organization Address [facility] de Phone Number [facility] [employer] [facility]# [id number] [address] [place] [address] * (ABNORMAL) CBC WITHOUT DIFFERENTIAL (01/07/2019 10:25 AM CDT) WBC 9.8 4.0 - 9.8 K/uL 01/07/2019 10:31 AM T [facility] RBC 4.33 3.90 - 4.90 M/uL 01/07/2019 10:31 AM [facility] HEMOGLOBIN 12.5 11.8 - 14.8 g/dL 01/07/2019 10:31 AM [facility] HEMATOCRIT 38.3 35.5 - 44.0 % 01/07/2019 10:31 AM [facility] MCV 88.5 82.0 - 99.0 fL 01/07/2019 10:31 AM [facility] MCH 28.9 27.2 - 32.6 pg 01/07/2019 10:31 AM [facility] MCHC 32.6 31.5 - 35.5 g/dL 01/07/2019 10:31 AM [facility] PLATELETS 255 140 - 350 K/uL 01/07/2019 10:31 AM [facility] [employer] SERVICES - [facility] MPV 9.1(L) 9.3 - 12.4 fL 01/07/2019 10:31 AM T [facility] [employer] SERVICES - [facility] RDW 13.5 11.5 - 14.5 % 01/07/2019 10:31 AM [facility] RDW-STDEV 44.2 37.1 - 48.7 fL 01/07/2019 10:31 AM [facility] Blood Collection / Unknown 01/07/2019 10:25 AM CDT 01/07/2019 10:25 AM CDT Alize Arteaga MD HEMATOLOGY YONI SERRANO [facility] Organization Address City/State/ZIP Co de Phone Number [facility]# [id number] [address] [facility] [place] [address] documented in this encounter Visit Diagnoses Diagnosis Hypertriglyceridemia- Primary Pure hyperglyceridemia Type 2 diabetes mellitus with hyperglycemia, with long-term current use of insulin documented in this encounter Administered Medications Inactive Administered Medications - up to 3 most recent administrations Medication Order MAR Action Action Date Dose Rate Site calcium GLUCONATE 2,000 mg in sodium chloride 0.9% 120 mL IVPB 2,000 mg, IV, ONE TIME ONLY, 1 dose, On Sat01/07/19 at 0930, Routine New Bag 01/07/2019 10:33 AM CDT 2,000 mg 120 mL/hr heparin injection 2,000 Units 2,000 Units, IV, ONE TIME ONLY, 1 dose, On Sat01/07/19 at 1215, Routine, DO NOT DISPENSE. ALREADY HAVE SOME FOR THIS PATIENT FROM THE LAST APPOINTMENT Given 01/07/2019 12:25 PM CDT 2,000 Units heparin injection 2,000 Units 2,000 Units, IV, ONE TIME ONLY, 1 dose, On Sat01/07/19 at 1215, Routine, DO NOT DISPENSE. ALREADY HAVE SOME FOR THIS PATIENT FROM THE LAST APPOINTMENT Given 01/07/2019 12:12 PM CDT 2,000 Units documented in this encounter Care Teams Cloth Shearing Supervisor Relationship Specialty Start Date End Date Guerrero Middleton PA-C PCP - General Physician Injection Molder 02/13/18 documented as of this encounter
--- OUTSIDE RECORDS SUMMARY | 2024-05-03 20:43 | XMS_ITS | Encounter Summary ---
Author Organization [employer] Address [address] [place] [address] Care Team Providers Care Administrative Specialist Name Role Phone Guerrero Middleton PA-C Primary Care Provide r Reason for Referral * Radiology Services (Routine) - Closed Specialty Diagnoses / Procedures Referred By Tequila t Referred To Contact Interventional Radiology Diagnoses Hypertriglyceridemia Procedures IR VENOUS NECK IR TUBE PLACEMENT Alize Arteaga MD NO ADDRESS ON FILE Referral ID Status Reason Start Date Expiration Date V isits Requested Visits Authorized [id number] Closed [facility] CTS 05/07/2019 06/07/2019 1 1 D PLACEMENT DIRECTOR Encounter Details Date Type Department Care Team (Latest Contact Info) Description 04/17/2019 Orders Only [facility] Blood Bank Donor Center S [facility] [address] [place] [address] Alize Arteaga MD NO ADDRESS ON FILE [...] Center Heart and Vascular - [facility] [address] [place] [address] Marlys Mayer MD [address] [place] [address] documented as of this encounter Results * IR VENOUS NECK (05/11/2019 11:38 AM FIELD PLACEMENT DIRECTOR) Anatomical Region Laterality Modality Neck X-Ray Angiograph y, Other 05/11/2019 11:3 8 AM FIELD PLACEMENT DIRECTOR Impressions 05/11/2019 12:38 PM FIELD PLACEMENT DIRECTOR IMPRESSION: 1. ??Successful left chest Powerflow port removal. 2. ??Successful placement of a new left chest Powerflow port with tip in the right atrium and just slightly shorter than the right-sided venous port as intended for use. PLAN: The ports are ready to use. DICTATION LOCATION: Location 1 - [facility] 05/11/2019 12:38 PM FIELD PLACEMENT DIRECTOR PROCEDURES: 1. ??FLUOROSCOPIC GUIDED LEFT CHEST VENOUS PORTACATHETER REMOVAL 2. ??ULTRASOUND AND FLUOROSCOPIC GUIDED LEFT CHEST VENOUS PORT IMPLANT TIME/DATE: 05/11/2019 11:38 AM. CLINICAL INFORMATION & INDICATION: Female of 43 years age with history of hypertriglyceridemia requiring power flow pheresis ports. She had one of the 2 right-sided ports removed and replaced on the left side in January 2019, however the left-sided power flow was functioning suboptimally and portacatheter study from March 2019 showed that the catheter tip had migrated proximally to near the innominate vein confluence. She presents today for removal of the existing port and placement of a new left-sided power flow port. CONSENT: The indications, procedures, benefits, and risks (including but not limited to infection and bleeding) were discussed with the patient. Informed consent was obtained for the medical record. IR: Ryan Forrest MD. ?? SEDATION: Provided by the anesthesia department as detailed in the medical record. ?? TECHNIQUE: The patient was identified by standard protocol and a timeout was performed at the beginning of the procedure. Maximum sterile barrier technique was utilized for all aspects of the procedure including sterile cap, gown, gloves and mask. The patient was prepped and draped in usual sterile fashion. Fluoroscopic image was obtained showing significant retraction of the left-sided catheter since original placement into the innominate vein confluence. The subcutaneous tissues over the left chest wall port were infiltrated with local anesthetic and a short transverse incision was made. The tissues surrounding the reservoir were freed using blunt dissection. The port reservoir and catheter were removed in their entirety.The tissues at the incision site were approximated with suture and sealed with Dermabond. The central veins were evaluated by ultrasound and image(s) were recorded into the medical record. Sterile ultrasound technique including probe cover and gel was used. The subcutaneous tissues were infiltrated with local anesthetic and the left internal jugular vein was accessed with a needle using realtime ultrasound guidance. A guidewire and transitional dilator were passed centrally using fluoroscopic guidance. Microwire and exchanged for a 0.035 guidewire advanced into the inferior vena cava. The subcutaneous tissues were infiltrated with local anesthetic and a short transverse incision was made in the left chest wall. The pocket for the port reservoir was formed by blunt dissection. The catheter was then tunneled from the port incision to the neck dermatotomy. Peel-away sheath was placed over the guidewire. Guidewire and introducer were removed and catheter was placed through the peel-away sheath and positioned in the right atrium. The catheter was then cut to the appropriate length and connected to the port reservoir. Port reservoir was placed in the pocket. The Powerflow port flushed and aspirated with ease and was left accessed for pheresis later today. The tissues at the incision sites were approximated with suture and sealed with Dermabond. At the end of the procedure, a sterile dressing was applied. The patient tolerated the procedure well. MEDICATIONS/DRUGS: Antibiotic prophylaxis as detailed in the medical record. FLUOROSCOPIC TIME: 0.4 min FLUOROSCOPIC DOSE: 1.8 mGy ESTIMATED BLOOD LOSS: 10 mL. ?? COMPLICATIONS: None. ?? FINDINGS: 1. ??Ultrasound images demonstrate a patent left internal jugular vein. 2. ??Initial fluoroscopic images demonstrate retraction of the left chest Powerflow with tip suboptimally positioned near the innominate vein confluence. The right venous port is well-positioned with tip in the right atrium. 3. ??Final fluoroscopic images demonstrate new left chest Powerflow port with tip in the right atrium, and slightly shorter than the right-sided venous port. Procedure Note Alfa Forrest MD - 05/11/2019 PROCEDURES: 1. FLUOROSCOPIC GUIDED LEFT CHEST VENOUS PORTACATHETER REMOVAL 2. ULTRASOUND AND FLUOROSCOPIC GUIDED LEFT CHEST VENOUS PORT IMPLANT TIME/DATE: 05/11/2019 11:38 AM. CLINICAL INFORMATION & INDICATION: Female of 43 years age with history of hypertriglyceridemia requiring power flow pheresis ports. She had one of the 2 right-sided ports removed and replaced on the left side in January 2019, however the left-sided power flow was functioning suboptimally and portacatheter study from March 2019 showed that the catheter tip had migrated proximally to near the innominate vein confluence. She presents today for removal of the existing port and placement of a new left-sided power flow port. CONSENT: The indications, procedures, benefits, and risks (including but not limited to infection and bleeding) were discussed with the patient. Informed consent was obtained for the medical record. IR: Ryan Forrest MD. SEDATION: Provided by the anesthesia department as detailed in the medical record. TECHNIQUE: The patient was identified by standard protocol and a timeout was performed at the beginning of the procedure. Maximum sterile barrier technique was utilized for all aspects of the procedure including sterile cap, gown, gloves and mask. The patient was prepped and draped in usual sterile fashion. Fluoroscopic image was obtained showing significant retraction of the left-sided catheter since original placement into the innominate vein confluence. The subcutaneous tissues over the left chest wall port were infiltrated with local anesthetic and a short transverse incision was made. The tissues surrounding the reservoir were freed using blunt dissection. The port reservoir and catheter were removed in their entirety.The tissues at the incision site were approximated with suture and sealed with Dermabond. The central veins were evaluated by ultrasound and image(s) were recorded into the medical record. Sterile ultrasound technique including probe cover and gel was used. The subcutaneous tissues were infiltrated with local anesthetic and the left internal jugular vein was accessed with a needle using realtime ultrasound guidance. A guidewire and transitional dilator were passed centrally using fluoroscopic guidance. Microwire and exchanged for a 0.035 guidewire advanced into the inferior vena cava. The subcutaneous tissues were infiltrated with local anesthetic and a short transverse incision was made in the left chest wall. The pocket for the port reservoir was formed by blunt dissection. The catheter was then tunneled from the port incision to the neck dermatotomy. Peel-away sheath was placed over the guidewire. Guidewire and introducer were removed and catheter was placed through the peel-away sheath and positioned in the right atrium. The catheter was then cut to the appropriate length and connected to the port reservoir. Port reservoir was placed in the pocket. The Powerflow port flushed and aspirated with ease and was left accessed for pheresis later today. The tissues at the incision sites were approximated with suture and sealed with Dermabond. At the end of the procedure, a sterile dressing was applied. The patient tolerated the procedure well. MEDICATIONS/DRUGS: Antibiotic prophylaxis as detailed in the medical record. FLUOROSCOPIC TIME: 0.4 min FLUOROSCOPIC DOSE: 1.8 mGy ESTIMATED BLOOD LOSS: 10 mL. COMPLICATIONS: None. FINDINGS: 1. Ultrasound images demonstrate a patent left internal jugular vein. 2. Initial fluoroscopic images demonstrate retraction of the left chest Powerflow with tip suboptimally positioned near the innominate vein confluence. The right venous port is well-positioned with tip in the right atrium. 3. Final fluoroscopic images demonstrate new left chest Powerflow port with tip in the right atrium, and slightly shorter than the right-sided venous port. IMPRESSION: 1. Successful left chest Powerflow port removal. 2. Successful placement of a new left chest Powerflow port with tip in the right atrium and just slightly shorter than the right-sided venous port as intended for use. PLAN: The ports are ready to use. DICTATION LOCATION: Location 1 - [facility] Alize Arteaga MD IR ORDERABLES documented in this encounter Visit Diagnoses Diagnosis Hypertriglyceridemia- Primary Pure hyperglyceridemia Hypertriglyceridemia Pure hyperglyceridemia documented in this encounter Care Teams Administrative Specialist Relationship Specialty Start Date End Date Guerrero Middleton PA-C PCP - General Physician Cadet Deck 02/13/18 documented as of this encounter
--- OUTSIDE RECORDS SUMMARY | 2024-05-03 20:43 | XMS_ITS | Encounter Summary ---
Author Organization [facility] Address [address] [place] [address] Care Team Providers Care Building Drafting Officer Name Role Phone Guerrero Middleton PA-C Primary Care Provide r Reason for Referral * Radiology Services (Routine) - Closed Specialty Diagnoses / Procedures Referred By Tequila bowman Referred To Contact Interventional Radiology Diagnoses Hypertriglyceridemia Procedures IR VENOUS NECK IR TUBE PLACEMENT Alize Arteaga MD NO ADDRESS ON FILE Referral ID Status Reason Start Date Expiration Date V isits Requested Visits Authorized [id number] Closed [facility] CTS 05/07/2019 06/07/2019 1 1 YTICS ARCHITECT Reason for Visit * Auth/Cert Specialty Diagnoses / Procedures Referred By Tequila bowman Referred To Contact General Surgery Diagnoses Hypertriglyceridemia Procedures IR VENOUS NECK [facility] [address] [address] Referral ID Status Reason Start Date Expiration Date Visits Re quested Visits Authorized [id number] 1 1 Encounter Details Date Type Department Care Team (Latest Contact Info) Description 05/11/2019 6:03 AM ANALYTICS ARCHITECT - 05/11/2019 1:04 PM ANALYTICS ARCHITECT Hospital Encounter [facility] Amb Care Interventional Unit [place] [address] [facility] [place] [address] Alize Arteaga MD NO ADDRESS ON FILE [facility] Mark Wyatt MD [address] [facility] [facility] [place] [address] Hypertriglyceridemia Discharge Disposition: Home or Self Care Social [...] Sign Reading Time Taken Comments Blood Pressure 92/59 05/11/2019 12:45 PM ANALYTICS ARCHITECT Pulse 74 05/11/2019 12:45 PM ANALYTICS ARCHITECT Temperature 36.4 ??C (97.5 ??F) 05/11/2019 11:[address] Respiratory Rate 16 05/11/2019 11:55 AM ANALYTICS ARCHITECT Oxygen Saturation 92% 05/11/2019 12:45 PM ANALYTICS ARCHITECT Inhaled Oxygen Concentration - - Weight 88 kg (194 lb) 05/11/2019 6:53 AM ANALYTICS ARCHITECT Height 165.1 cm (5' 5 ) 05/11/2019 6:53 AM ANALYTICS ARCHITECT Body Mass Index 32.28 05/11/2019 6:53 AM ANALYTICS ARCHITECT documented in this encounter Discharge Instructions * Discharge Instructions* Clifford Restrepo, RN - 05/11/2019 11:51 AM ANALYTICS ARCHITECT SAFETY For the next 24 hours, you may feel sleepy due to medicines used during your procedure. For the next 24 hour period or while you are on pain medication, DO NOT make any important decisions or sign any important papers. DO NOT drink any alcoholic beverages, including beer. DO NOT drive a car or operate machinery and power tools. For your safety and protection, we strongly recommend that a responsible adult be with you today and throughout the night. Medication Pain Medication ___percocet given at . Next dose due at , if needed. ADDITIONAL INFORMATION Once you are home, if you develop any of the following symptoms, call your physician. Difficulty in breathing, persistent nausea or vomiting, pain that is unusual, excessive swelling orredness at incision site, trouble swallowing, temperature greater than 101 degrees, excessive bleeding at incision site. If you cannot contact your physician, call or come to the Emergency Room at [facility] ([phone]) or the nearest Emergency Room. In an emergency, Call 911. [address] IN[address] DR. HOLGUIN / DR. JAMES/ DR. AREVALO POST CHESTPORT IMPLANTATION Instructions: 1. Do not raise your arm on the side of the implant above the shoulder or lift more than 10 lbs, for 2 weeks. 2. Keep the dressing dry for 2 days. You may remove the dressing and shower in 2 days after the procedure. Pat the surgical site dry and cover it with gauze and tape. If some of the dressing remains glued to the incision, let it be; it will come undone on its own. 3. Do not bathe or sit in standing water until the incisions are completely healed, that would takeabout 2 weeks. 4. Do not use any ointment, cream or lotion on the incisions. 5. Do not use an arm sling. Pain: Pain and swelling should go away in a few days to a week after you have your port put in. Your shoulder may feel stiff and sore. It might also hurt the first time when you put the needle into the port. The more you use the port, the less it will hurt. Caregivers may give you a special numbingmedicine to use on your skin before you use your port. Ice: Ice causes blood vessels to constrict (get small) which helps lessen inflammation (swelling, pain, and redness). Ice is best started after surgery and for the next 24 to 48 hours afterwards. Putcrushed ice in a place bag and cover it with a towel. Place this on the surgery area for 15 to 20 minutes every hour as long as you need it. Do not sleep with the ice pack on, since you may get frostbite. Call Physician if: ??? There is a red streak from the port up your chest. ??? Your face or neck gets swollen. ??? The area around the port is red, swollen and warm. These are signs of infection. ??? There is swelling around the port, and the skin around the port is painful and cool. ??? The pain in your shoulder, arms, and neck does not go away or gets worse. ??? Please call [phone] with any questions or concerns regarding the procedure you had. 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 D/C instructions given. VSS. Pt states minor pain, both sites remain accessed, L chest site remains bruised but not worsened. D/c home in careof Family, transported to blood donor services. YTICS ARCHITECT * Clifford Restrepo RN - 05/11/2019 12:[address] Forrest in to see pt and OKd port site, request pt continue to use Ice packs. No change from 1200 assessment. YTICS ARCHITECT * Clifford Restrepo RN - 05/11/2019 12:00 PM CST L chest port site appears more swollen and bruised than earlier, Dr Forrest updated and will evaluate, no change pain, site D/I, ice pack intact. YTICS ARCHITECT * Nicole Michelle RN - 05/11/2019 11:46 AM CST Procedure completed. Dressing applied per Tima Patterson RT. New left power flow port remains accessed. Right power flow port accessed by Dr Forrest for pt's treatment today. Airway management per anesthesia. Pt transferred to bed. Portable monitor applied. Pt transported to [facility] with Dr Wyatt. Report given to Clifford OLGUIN. YTICS ARCHITECT * Clifford Restrepo RN - 05/11/2019 11:46 AM CST Returned to room post procedure sleepy Awakens to name, VSS, c/o severe pain, @ L chest port, denies nausea, SOB. L chest port dressing dry, intact, no slight bruising and swelling noted, @ BS, started on full diet, instructed to ice pack and bedrest, states understanding. Dr Forrest updated to pain, med order received. YTICS ARCHITECT * Nicole Michelle RN - 05/11/2019 10:30 AM CST In [facility] to see patient. Pt's history, meds, allergies, labs, NPO status & order reviewed. Dr Forrest explained procedure. Informed consent obtained. Dr Wyatt spoke with pt. Pt transported to xray room 14. Pt transferred to procedure table in supine position. Monitors applied. Airway management, meds & vitals per anesthesia. YTICS ARCHITECT documented in this encounter H&P Notes * Alfa Forrest MD - 05/11/2019 9:21 AM CST Patient known to IR with bilateral Powerflow ports for pharesis. L sided catheter has migrated back now terminating at innominate vein confluence. This will be to be removed and replaced with new port with slightly longer tubing to mitigate risk of recurrence. YTICS ARCHITECT documented in this encounter Plan of Treatment Upcoming Encounters Date Type Department Care Team (Late st Contact Info) Description 09/14/2024 3:00 PM CDT Office Visit [facility] Heart and Vascular - [facility] [id number] [place] [phone] Marlys Mayer MD [address] [place] [address] documented as of this encounter Procedures Procedure Name Priority Date/Time Associated Diagnosis Comments IR VENOUS NECK Routine 05/11/2019 11:38 AM ANALYTICS ARCHITECT Hypertriglyceridemia POC GLUCOSE Routine 05/11/2019 6:23 AM ANALYTICS ARCHITECT documented in this encounter Results * IR VENOUS NECK (05/11/2019 11:38 AM ANALYTICS ARCHITECT) Anatomical Region Laterality Modality Neck X-Ray Angiograph y, Other 05/11/2019 11:3 8 AM ANALYTICS ARCHITECT Impressions 05/11/2019 12:38 PM ANALYTICS ARCHITECT IMPRESSION: 1. ??Successful left chest Powerflow port removal. 2. ??Successful placement of a new left chest Powerflow port with tip in the right atrium and just slightly shorter than the right-sided venous port as intended for use. PLAN: The ports are ready to use. DICTATION LOCATION: Location 1 - [facility] Narrative 05/11/2019 12:38 PM ANALYTICS ARCHITECT PROCEDURES: 1. ??FLUOROSCOPIC GUIDED LEFT CHEST VENOUS [...] to use. DICTATION LOCATION: Location 1 - [facility] Alize Arteaga MD IR ORDERABLES * (ABNORMAL) POC GLUCOSE (05/11/2019 6:23 AM ANALYTICS ARCHITECT) [facility] Signature GLUCOSE POC 169(H) 74 - 99 mg/dL 05/11/2019 6:23 AM ANALYTICS ARCHITECT [facility] COMPUTER HELP DESK REPRESENTATIVE NAME POC CLIFFORD RESTREPO 05/11/2019 6:23 AM ANALYTICS ARCHITECT [facility] Blood, whole 05/11/2019 6:23 AM ANALYTICS ARCHITECT 05/11/2019 6:33 AM ANALYTICS ARCHITECT Alize Arteaga MD POINT OF CARE T ESTING [facility]# [id number] [address] [facility] [address] [address] [address] [place] [id number] documented in this encounter Visit Diagnoses Diagnosis Hypertriglyceridemia Pure hyperglyceridemia documented in this encounter Administered Medications Inactive Administered Medications - up to 3 most recent administrations Medication Order MAR Action Action Date Dose Rate Site oxyCODONE-acetaminophen (PERCOCET) 5-325 mg per tablet 1 Tablet 1 Tablet, Oral, ONE TIME ONLY, 1 dose, On 05/11/19 at 1200, Routine Given 05/11/2019 11:53 AM ANALYTICS ARCHITECT 1 Tablet documented in this encounter Active and Recently Administered Medications Times are shown in ANALYTICS ARCHITECT. Scheduled Medication Order 05/09/2019 05/10/2019 05/11/2019 ceFAZolin (ANCEF) 2,000 mg in dextrose (iso-osmotic) 100 mL IVPB (PREMIX) (COMPLETED) 2,000 mg, IV, PRE-PROCEDURE ONCE, 1 dose, Starting on Sat05/11/19 at 0643, Until Sat05/11/19 at 1027, Routine, Please send to [facility], Antibiotic Indication: Surgical prophylaxis 1027 (Given - Provid er: Mark Wyatt MD) oxyCODONE-acetaminophen (PERCOCET) 5-325 mg per tablet 1 Tablet (COMPLETED) 1 Tablet, Oral, ONE TIME ONLY, 1 dose, On Sat05/11/19 at 1200, Routine 1153 (Given - Provid er: Clifford Restrepo RN) documented in this encounter Care Teams Building Drafting Officer Relationship Specialty Start Date End Date Guerrero Middleton PA-C PCP - General Physician Supervisor Tunnel Heading 02/13/18 documented as of this encounter
--- OUTSIDE RECORDS SUMMARY | 2024-05-03 20:43 | XMS_ITS | Encounter Summary ---
Author Organization [facility] Address [address] [place] [address] Care Team Providers Care Linen Room Houseperson Name Role Phone Guerrero Middleton PA-C Primary Care Provide r Encounter Details Date Type Department Care Team (Latest Contact Info) Description 03/11/2019 9:18 AM NEUROSURGERY RESEARCH DIRECTOR - 03/11/2019 11:59 PM [facility] Hospital Encounter [facility] Blood Bank Don[facility] [address] [place] [address] Alize Arteaga MD NO ADDRESS ON FILE [...] Reading Time Taken Comments Blood Pressure 114/78 03/11/2019 1:31 PM NEUROSURGERY RESEARCH DIRECTOR Pulse 81 03/11/2019 1:31 PM NEUROSURGERY RESEARCH DIRECTOR Temperature 36.9 ??C (98.4 ??F) 03/11/2019 1:31 PM CS T Respiratory Rate 16 03/11/2019 1:31 PM NEUROSURGERY RESEARCH DIRECTOR Oxygen Saturation - - Inhaled Oxygen [...] Progress Notes * Rosales Tapia, RN - 03/11/2019 10:00 AM CST Plasma exchange completed using the right and left bard port for access and return with 5% albumin as replacement fluids for a 1.0 volume exchange. Pt tolerated procedure without issues. Cathflo usedon left bard port because of poor blood return. OSURGERY RESEARCH DIRECTOR * Alize Arteaga MD - 03/11/2019 10:00 AM CST CC: ??43??yo female with hypertriglyceridemia associated??with??recurrent necrotizing pancreatitis initiated on prophylactic plasma exchange for prevention of hypertriglyceridemic pancreatitis starting 11/12/18.??(ASFA category III indication for apheresis). ?? Interval history: ?Feeling pretty good. L port site feeling better after course of oral antibiotics. ?? PMH: ??Hypertriglyceridemia (associated with prior episodes [...] 12.3, Hct 36.7, Plt 289 03/04/19: triglyceride 728 (preprocedure) ?? A&P: 1. [...] will continue with one procedure per week. 5. Left port continues to require cathflo. Will continue to monitor. 6. Patient to go on two week [place] cruise at end of February. She will come for one procedure before the cruise. Patient reminded to avoid alcohol and high fat foods on her travels. We will see herwhen she returns from her cruise to resume once weekly treatment. ?? I have seen and examined the patient, reviewed pertinent notes and records, and remained immediately available throughout the procedure. ?? Alize Arteaga MD, PhD Automotive Quality Engineer, therapeutic apheresis service [phone] ?? Procedure??notes:??Cathflo needed to get adequate return in L BARD powerflow port.??Patient tolerated procedure well.?? OSURGERY RESEARCH DIRECTOR documented in this encounter Plan of Treatment Upcoming Encounters Date Type Department Care Team (Late st Contact Info) Description 09/14/2024 3:00 PM CDT Office Visit [facility] Heart [facility] V[facility] - [facility] [address] [place] [address] Marlys Mayer MD [address] [place] [address] documented as of this encounter Procedures Procedure Name Priority Date/Time Associated Diagnosis Comments TRIGLYCERIDE Routine 03/11/2019 9:55 AM NEUROSURGERY RESEARCH DIRECTOR Metabolic syndrome History of gestational diabetes Family [...] in this encounter Results * (ABNORMAL) TRIGLYCERIDE (03/11/2019 9:55 AM NEUROSURGERY RESEARCH DIRECTOR) TRIGLYCERIDE 728(H) <150 mg/dL 03/11/2019 11:07 AM NEUROSURGERY RESEARCH DIRECTOR [facility] Blood Venipuncture / Unknown 03/11/2019 9:55 AM NEUROSURGERY RESEARCH DIRECTOR 03/11/2019 10:29 AM NEUROSURGERY RESEARCH DIRECTOR Narrative [facility] - 03/11/2019 11:07 AM NEUROSURGERY RESEARCH DIRECTOR TRIGLYCERIDES ? mg/dL Normal ?< 150 Borderline High ?150 - 199 High ? 200 - 499 Very High ? >= 500 Based on AHA/NCEP Guidelines. Alize Arteaga MD CHEMISTRY ORDER OSVALDO [facility]# [id number] [address] [place] [place] [address] documented in this encounter Visit Diagnoses Diagnosis [...] Dwell, ONE TIME ONLY, 1 dose, On Sat03/11/19 at 0845, Routine, Please tube to station 516, blood bank Given 03/11/2019 10:46 AM NEUROSURGERY RESEARCH DIRECTOR 2 mg Chest, Left calcium GLUCONATE 2,000 mg in sodium chloride 0.9% 120 mL IVPB 2,000 mg, IV, INTRA-PROCEDURE ONCE, 1 dose, Starting on Sat03/11/19 at 1000, Until Sat03/11/19 at 1321, Routine New Bag 03/11/2019 12:30 PM NEUROSURGERY RESEARCH DIRECTOR 2,000 mg 120 mL/hr heparin injection 2,000 Units 2,000 Units, IV, POST-PROCEDURE ONCE, 1 dose, Starting on Sat03/11/19 at 1000, Until Sat03/11/19 at 1352, Routine, PLEASE TUBE TO STATION 516, BLOOD BANK Given 03/11/2019 1:52 PM NEUROSURGERY RESEARCH DIRECTOR 2,000 Units heparin injection 2,000 Units 2,000 Units, IV, POST-PROCEDURE ONCE, 1 dose, Starting on Sat03/11/19 at 1000, Until Sat03/11/19 at 1354, Routine, PLEASE TUBE TO STATION 516 BLOOD BANK Given 03/11/2019 1:54 PM NEUROSURGERY RESEARCH DIRECTOR 2,000 Units water sterile injection See Admin Instructions, ONE TIME ONLY, 1 dose, On Sat03/11/19 at 0900, Routine Given 03/11/2019 9:00 AM NEUROSURGERY RESEARCH DIRECTOR Chest, Left documented in this encounter Care Teams Linen Room Houseperson Relationship Specialty Start Date End Date Guerrero Middleton PA-C PCP - General Physician Railways Assistant 02/13/18 documented as of this encounter
--- OUTSIDE RECORDS SUMMARY | 2024-05-03 20:43 | XMS_ITS | Encounter Summary ---
Author Organization [facility] Address [address] [place] [address] Care Team Providers Care Tenon Machine Operator Name Role Phone Guerrero Middleton PA-C Primary Care Provide r Reason for Visit * Auth/Cert Specialty Diagnoses / Procedures Referred By Conthardik t Referred To Contact General Surgery Diagnoses Follow up Procedures IR VENOUS NECK [facility] Int Unit [address] [address] Referral ID Status Reason Start Date Expiration Date Visits Re quested Visits Authorized [id number] 1 1 Encounter Details Date Type Department Care Team (Latest Contact Info) Description 02/18/2019 12:00 PM CDT - 02/18/2019 11:59 PM CDT Hospital Encounter [facility] Blood Bank Donor [id number] [place] [address] Alize Arteaga MD NO ADDRESS ON FILE [...] How often do you attend chur or islam services? Never 08/21/2018 Do you [...] Sign Reading Time Taken Comments Blood Pressure 100/65 02/18/2019 3:20 PM CDT Pulse 80 02/18/2019 3:20 PM CDT Temperature 36.6 ??C (97.8 ??F) 02/18/2019 3:20 PM CD T Respiratory Rate 16 02/18/2019 3:20 PM CDT Oxygen Saturation - - Inhaled [...] Progress Notes * Rosales Tapia RN - 02/18/2019 4:19 PM CDT Plasma exchange completed using both bard ports for access and return with 5% albumin as replacement fluids for a 1.0 volume exchange. Pt tolerated procedure well. Ports de accessed without problems,both ports flushed and locked with heparin (see MAR). Gauze and occlusive dressing applied. Instructions given to patient for wound care. Next appointment 02/25/2019 at 1000. Pt left in stable condition with . * Alize Arteaga MD - 02/18/2019 12:00 PM CDT CC: ??43??yo female with hypertriglyceridemia associated??with??recurrent necrotizing pancreatitis initiated on prophylactic plasma exchange for prevention of hypertriglyceridemic pancreatitis starting 11/12/18.??(ASFA category III indication for apheresis). ?? Interval history: ?Feeling ok lately. Some nausea, but not terrible. Patient coming to us from IR after removal of one port and placement of new port. ?? PMH: ??Hypertriglyceridemia (associated with prior episodes [...] and Oriented x 3 - Normal Affect ? A&P: 1. 43??yo female with??recurrent??hypertriglyceridemic pancreatitis requires [...] modify plan based on triglyceride results. 4. Ports evaluated by IR last week. IR agreeable to remove one port based on nursing assessment that one port is moving and they can't access both ports for procedures. One port in right chest pocketremoved by IR on 02/18/19. New port put in L chest. Now patient has port in each side. 6.?Still have not established steady state maintenance. ??We will do at one procedure per week for the next two weeks. ?? I have seen and examined the patient, reviewed pertinent notes and records, and remained immediately available throughout the procedure. ?? Alize Arteaga MD, PhD Model Home Sales Greeter, therapeutic apheresis service [phone] ?? Procedure??notes: Patient tolerated procedure well.? documented in this encounter Plan of Treatment Upcoming Encounters Date Type Department Care Team (Late st Contact Info) Description 09/14/2024 3:00 PM CDT Office Visit [facility] Heart and Vascular - [facility] [address] [place] [address] Marlys Mayer MD [address] [place] [address] documented as of this encounter Procedures Procedure Name Priority Date/Time Associated Diagnosis Comments CBC WITH DIFFERENTIAL Routine 02/18/2019 1:23 PM CDT Hypertriglyceridemi a TRIGLYCERIDE Routine 02/18/2019 1:23 PM CDT Hypertriglyceridemi a documented in this encounter Results * (ABNORMAL) TRIGLYCERIDE (02/18/2019 1:23 PM CDT) TRIGLYCERIDE 2,020(H) <150 mg/dL 02/18/2019 9:20 PM CDT [facility] mob[facility] Blood Venipuncture / Unknown 02/18/2019 1:23 PM CDT 02/18/2019 1:58 PM CDT [facility] LABORATORY [facility] - 02/18/2019 9:20 PM CDT TRIGLYCERIDES ? mg/dL Normal ?< 150 Borderline High ?150 - 199 High ? 200 - 499 Very High ? >= 500 Based on AHA/NCEP Guidelines. Alize Arteaga MD CHEMISTRY ORDER OSVALDO [facility] LABORATORY SERVICES [facility] CLIA# [id number] [address] [facility] [place] [address] * (ABNORMAL) CBC WITH DIFFERENTIAL (02/18/2019 1:23 PM CDT) WBC 10.7(H) 4.0 - 9.8 K/uL 02/18/2019 2:32 PM CDT [facility] LABORATORY [facility] RBC 4.15 3.90 - 4.90 M/uL 02/18/2019 2:32 PM CDT [facility] mobli [facility] HEMOGLOBIN 12.3 11.8 - 14.8 g/dL 02/18/2019 2:32 PM CDT [facility] LABORATORY [facility] HEMATOCRIT 36.7 35.5 - 44.0 % 02/18/2019 2:32 PM CDT [facility] LABORATORY [facility] MCV 88.4 82.0 - 99.0 fL 02/18/2019 2:32 PM CDT [facility] LABORATORY [facility] MCH 29.6 27.2 - 32.6 pg 02/18/2019 2:32 PM CDT [facility] LABORATORY SERVICES - [facility] MCHC 33.5 31.5 - 35.5 g/dL 02/18/2019 2:32 PM CDT [facility] mobli [facility] RDW 14.3 11.5 - 14.5 % 02/18/2019 2:32 PM CDT [facility] - . [facility] RDW-STDEV 46.2 37.1 - 48.7 fL 02/18/2019 2:32 PM T [facility] - [facility] PLATELETS 289 140 - 350 K/uL 02/18/2019 2:32 PM [email or web address] LABORATORY SERVICES - [facility] MPV 9.6 9.3 - 12.4 fL 02/18/2019 2:32 PM [facility] - [facility] NEUTROPHILS 68 % 02/18/2019 2:32 PM [email or web address] LABORATORY SERVICES - [facility] LYMPHOCYTES 25 % 02/18/2019 2:32 PM [email or web address] [facility]ATORY SERVICES - [facility] MONOCYTES 5 % 02/18/2019 2:32 PM T [facility] - [facility] EOSINOPHILS 1 % 02/18/2019 2:32 PM [email or web address] [facility]ATORY SERVICES - [facility] BASOPHILS 1 % 02/18/2019 2:32 PM [email or web address] LABORATORY SERVICES - . [facility] IMMATURE GRANULOCYTES 1 % 02/18/2019 2:32 PM [email or web address] LABORATORY SERVICES - . [facility] Comment:IG (Immature Granulo cyte) count includes Metamyelocytes, Myelocytes, and Promyelocytes NEUTROPHIL ABSOLUTE 7.28(H) 1.90 - 7.00 K/uL 02/18/2019 2:32 PM [email or web address] LABORATORY SERVICES - [facility] LYMPHOCYTE ABSOLUTE 2.63 0.70 - 4.50 K/uL 02/18/2019 2:32 PM [email or web address] LABORATORY SERVICES - [facility] MONOCYTE ABSOLUTE 0.57 0.10 - 1.30 K/uL 02/18/2019 2:32 PM [email or web address] LABORATORY SERVICES - [facility] EOSINOPHIL ABSOLUTE 0.08 0.00 - 0.70 K/uL 02/18/2019 2:32 PM [employer] LABORATORY SERVICES - [facility] BASOPHILS ABSOLUTE 0.05 0.00 - 0.20 K/uL 02/18/2019 2:32 PM [employer] SERVICES - . [facility] IMMATURE GRANULOCYTES ABSOLUTE 0.06(H) 0.00 - 0.03 K/uL 02/18/2019 2:32 PM [employer] SERVICES - . [facility] Blood Venipuncture / Unknown 02/18/2019 1:23 PM CDT 02/18/2019 1:58 PM CDT Alize Arteaga MD HEMATOLOGY YONI [facility] LABORATORY SERVICES [facility]# [id number] [address] [place] [address] documented in this encounter Visit Diagnoses Diagnosis Hypertriglyceridemia- Primary Pure hyperglyceridemia documented in this encounter Administered Medications Inactive Administered Medications - up to 3 most recent administrations Medication Order MAR Action Action Date Dose Rate Site calcium GLUCONATE 2,000 mg in sodium chloride 0.9% 120 mL IVPB 2,000 mg, IV, INTRA-PROCEDURE ONCE, 1 dose, Starting on Sat02/18/19 at 1130, Until Sat02/18/19 at 1508, Routine New Bag 02/18/2019 2:08 PM CDT 2,000 mg 240 mL/hr heparin injection 2,000 Units 2,000 Units, Dwell, ONE TIME ONLY, 1 dose, On Sat02/18/19 at 1115, Routine, Please tube to station 516, blood bank Given 02/18/2019 3:25 PM CDT 2,000 Units Chest, Right heparin injection 2,000 Units 2,000 Units, Dwell, ONE TIME ONLY, 1 dose, On Sat02/18/19 at 1115, Routine, Please tube to station 516, blood bank Given 02/18/2019 3:24 PM CDT 2,000 Units Chest, Left documented in this encounter Care Teams Tenon Machine Operator Relationship Specialty Start Date End Date Guerrero Middleton PA-C PCP - General Physician Cut Out Operator 02/13/18 documented as of this encounter
--- OUTSIDE RECORDS SUMMARY | 2024-05-03 20:43 | XMS_ITS | Encounter Summary ---
Author Organization [facility] Address [address] [place] [address] Care Team Providers Care Lvn Lpn Name Role Phone Guerrero Middleton PA-C Primary Care Provide r Encounter Details Date Type Department Care Team (Latest Contact Info) Description 12/24/2018 11:59 PM CDT Hospital Encounter [facility] Blood Bank Donor Center [facility] [address] [place] [address] Alize Arteaga MD NO ADDRESS ON FILE [...] often do you attend chur ch or scientology services? Never 08/21/2018 Do you belong to [...] Sign Reading Time Taken Comments Blood Pressure 111/76 12/24/2018 11:16 AM CDT Pulse 89 12/24/2018 11:16 AM CDT Temperature 36.9 ??C (98.5 ??F) 12/24/2018 11:16 AM C DT Respiratory Rate 16 12/24/2018 11:16 AM CDT Oxygen Saturation - - Inhaled [...] Progress Notes * Daniel Whitehead RN - 12/24/2018 11:25 AM CDT Triglyceride and CBC completed today, per Dr. Arteaga, no procedure or flush needed today. Scheduled for Saturday, January 07, 2019 for next appointment. Will draw pre-lab triglyceride and wait for results. Will do a procedure or flush BARD port next visit based on lab results per Dr. Arteaga. * Alize Arteaga MD - 12/24/2018 11:17 AM CDT CC: ??43??yo female with hypertriglyceridemia associated??with??recurrent necrotizing pancreatitis initiated on prophylactic plasma exchange for prevention of hypertriglyceridemic pancreatitis starting 11/12/18.??(ASFA category III indication for apheresis). ?? Interval history: ??Denies abdominal pain, nausea. Patient recently seen in consultation at [place]. She was recommended a low fat diet by [place], as has previously been recommended by her endocrinologisthere. She reports feeling very well now. Denies abdominal pain. Says she has increased energy. ?? PMH: ??Hypertriglyceridemia (associated with prior episodes of pancreatitis, received inpatient plasma exchanges 04/2018, 07/2018 and 09/2018, started on prophylactic exchanges October 2018), DM, anxiety, GERG, HLD, hypothyroidism, PCOS ?? Meds: as per EPIC. ?? Exam: ??Patient resting in chair. ??Port is not accessed at time of my exam. No erythema, induration or drainage observed at port site. ?? Labs:??triglycerides??431?? A&P: 1. 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 2. ??We will perform a 1.0 volume plasma exchange with all albumin replacement with 100% fluid balance with 2 g calcium gluconate over the procedure. 3.??Per Drs. Rudd and Moreno,??goal??triglycerides <500. We will obtain triglycerides prior to each procedure. ??We may need to modify plan based on triglyceride results. 4.??Triglycerides trending down. She is following a very low fat diet recommended by the doctor kamilla at [facility]. 5. Patient was seen by IR in the interim for evaluation of port discomfort. IR says port is appropriately placed and cannot be moved. Patient would have to have one or both ports removed and one or two new ports placed on the other side of her chest if she decides the discomfort is intolerable. There is nowhere to move the lateral port to and it is an infection risk if the pocket is opened and the device is manipulated. IR recommends watchful waiting x3 months. I have consulted apheresis doctors at two other institutions regarding this issue and they also recommended watchful waiting. I had an in depth discussion with Ms. Jones today regarding these recommendations. Ms. Jones expressed understanding and agreed to watchful waiting x3 months. 6. Ms. Jones to return to clinic in 2 weeks for triglyceride level and probable exchange (Procedure #6). I have seen and examined the patient, reviewed pertinent notes and records. ?? Alize Arteaga MD, PhD Assault Amphibious Vehicle Crewman, therapeutic apheresis service [phone] documented in this encounter Plan of Treatment Upcoming Encounters Date Type Department Care Team (Late st Contact Info) Description 09/14/2024 3:00 PM CDT Office Visit [facility] Heart and Vascular - [facility] [address] [place] [address] Marlys Mayer MD [address] [place] [address] documented as of this encounter Procedures Procedure Name Priority Date/Time Associated Diagnosis Comments TRIGLYCERIDE Routine 12/24/2018 9:58 AM CDT Metabolic syndrome History of gestational [...] upper quadrant pain Acquired hypothyroidism Recurrent pancreatitis CBC WITHOUT DIFFERENTIAL Routine 12/24/2018 9:56 AM CDT Metabolic syndrome History of gestational [...] in this encounter Results * (ABNORMAL) TRIGLYCERIDE (12/24/2018 9:58 AM CDT) Pathologist [facility] TRIGLYCERIDE 431(H) <150 mg/dL 12/24/2018 10:32 AM CDT [facility] [employer] [facility] Blood Venipuncture / Unknown 12/24/2018 9:58 AM CDT 12/24/2018 9:58 AM CDT [facility] [facility] - 12/24/2018 10:32 AM CDT TRIGLYCERIDES ? mg/dL Normal ?< 150 Borderline High ?150 - 199 High ? 200 - 499 Very High ? >= 500 Based on AHA/NCEP Guidelines. Alize Arteaga MD CHEMISTRY ORDER OSVALDO [facility] [facility]# [id number] [address] [facility] [place] [id number] * (ABNORMAL) CBC WITHOUT DIFFERENTIAL (12/24/2018 9:56 AM CDT) Pathologist [facility] WBC 11.1(H) 4.0 - 9.8 K/uL 12/24/2018 10:03 AM CDT [facility] [facility] RBC 4.60 3.90 - 4.90 M/uL 12/24/2018 10:03 AM CDT [facility] LABORATORY SERVICES - [facility] HEMOGLOBIN 13.2 11.8 - 14.8 g/dL 12/24/2018 10:03 AM [facility] - . [facility] HEMATOCRIT 41.8 35.5 - 44.0 % 12/24/2018 10:03 AM [facility] - . [facility] MCV 90.9 82.0 - 99.0 fL 12/24/2018 10:03 AM [facility] - . [facility] MCH 28.7 27.2 - 32.6 pg 12/24/2018 10:03 AM [facility] - . [facility] MCHC 31.6 31.5 - 35.5 g/dL 12/24/2018 10:03 AM [facility] - . [facility] PLATELETS 257 140 - 350 K/uL 12/24/2018 10:03 AM [facility] - . [facility] MPV 8.8(L) 9.3 - 12.4 fL 12/24/2018 10:03 AM [facility] - . [facility] RDW 14.3 11.5 - 14.5 % 12/24/2018 10:03 AM [facility] - [facility] RDW-STDEV 47.8 37.1 - 48.7 fL 12/24/2018 10:03 AM [facility] - [facility] Blood Collection / Unknown 12/24/2018 9:56 AM CDT 12/24/2018 9:57 AM CDT Alize Arteaga MD HEMATOLOGY Y[facility] Organization Address City/State/ZIP Co de Phone Number [facility] LABORATORY SERVICES - [facility]# [id number] [address] [place] [address] [place] [id number] documented in this encounter Visit Diagnoses Diagnosis [...] pancreatitis documented in this encounter Care Teams Lvn Lpn Relationship Specialty Start Date End Date Guerrero Middleton PA-C PCP - General Physician Home Demonstration Agent 02/13/18 documented as of this encounter
--- OUTSIDE RECORDS SUMMARY | 2024-05-03 20:43 | XMS_ITS | Encounter Summary ---
Author Organization [facility] Address [address] [place] [address] Care Team Providers Care Attorney Law Clerk Name Role Phone Guerrero Middleton PA-C Primary Care Provide r Encounter Details Date Type Department Care Team (Late st Contact Info) Description 04/30/2019 10:00 AM [employer] - 04/30/2019 11:59 PM [facility] Hospital Encounter [facility] Blood Bank [facility] [place] [address] Marquita Elizalde MD [facility], [facility] [address] [facility] [place] [address] Discharge Disposition: Home or Self [...] any clubs o r organizations such as quaker groups, unions, fraternal or athletic groups, or [...] Sign Reading Time Taken Comments Blood Pressure 138/84 04/30/2019 11:29 AM [employer] Pulse 87 04/30/2019 11:29 AM [employer] Temperature 36.7 ??C (98 ??F) 04/30/2019 11:29 AM [employer] Respiratory Rate 18 04/30/2019 11:29 AM [employer] Oxygen Saturation - - Inhaled Oxygen Concentration [...] 1 Tablet (10 mg) by mouth daily digital forensics investigator. 30 Tablet 5 04/08/2019 10/12/2019 levothyroxine 200 [...] this encounter Progress Notes * Puja Paz, RN - 04/30/2019 10:00 AM CST After starting plasma exchange pts triglyceride level came back at 200. Dr. Elizalde called and okay to stop procedure. Rinseback completed. A 0.7 volume completed using 5% Albumin as replacement fluid. Pt tolerated procedure well. [employer] documented in this encounter Plan of Treatment Upcoming Encounters Date Type Department Care Team (Late st Contact Info) Description 09/14/2024 3:00 PM CDT Office Visit [facility] Heart and Vascular - [facility] [address] [place] [address] Marlys Mayer MD [address] [place], [place] [id number] documented as of this encounter Procedures Procedure Name Priority Date/Time Associated Diagnosis Comments TRIGLYCERIDE Stat 04/30/2019 10:08 AM [employer] Mixed hyperlipidemia documented in this encounter Results * (ABNORMAL) TRIGLYCERIDE (04/30/2019 10:08 AM [employer]) TRIGLYCERIDE 200(H) <150 mg/dL 04/30/2019 10:40 AM [employer] [facility] [employer] [facility] Blood Collection / Unknown 04/30/2019 10:08 AM [employer] 04/30/2019 10:08 AM [employer] Narrative [facility] [employer] [facility] - 04/30/2019 10:40 AM [employer] TRIGLYCERIDES ? mg/dL Normal ?< 150 Borderline High ?150 - 199 High ? 200 - 499 Very High ? >= 500 Based on AHA/NCEP Guidelines. Marquita Elizalde MD CHEMISTRY ORDERA MARGARETH [facility] [employer] [facility] CLIA# [id number] [address] [place] [address] documented in this encounter Visit Diagnoses Diagnosis Mixed hyperlipidemia- Primary documented in this encounter Administered Medications Inactive Administered Medications - up to 3 most recent administrations Medication Order MAR Action Action Date Dose Rate Site calcium GLUCONATE 2,000 mg in sodium chloride 0.9% 120 mL IVPB 2,000 mg, IV, INTRA-PROCEDURE ONCE, 1 dose, Starting on Katie 04/30/19 at 0857, Until Katie 04/30/19 at 1056, Routine New Bag 04/30/2019 10:26 AM [employer] 2,000 mg 240 mL/hr heparin injection 2,000 Units 2,000 Units, IV, ONE TIME ONLY, 1 dose, On Katie 04/30/19 at 1000, Routine, Please tube to 516, thanks! Given 04/30/2019 11:37 AM [employer] 2,000 Units documented in this encounter Care Teams Attorney Law Clerk Relationship Specialty Start Date End Date Guerrero Middleton PA-C PCP - General Physician B And B Gang Worker 02/13/18 documented as of this encounter
--- OUTSIDE RECORDS SUMMARY | 2024-05-03 20:43 | XMS_ITS | Encounter Summary ---
Author Organization [facility] Address [address] [place] [address] Care Team Providers Care Ticket Sorter Name Role Phone Guerrero Middleton PA-C Primary Care Provide r Encounter Details Date Type Department Care Team (Latest Contact Info) Description 04/24/2019 10:05 AM WINE BOTTLE INSPECTOR - 04/24/2019 11:59 PM [facility] Hospital Encounter [facility] Blood Bank Donor Center S [facility] [address] [place] [address] Alize Arteaga MD NO ADDRESS ON FILE [...] Sign Reading Time Taken Comments Blood Pressure 103/70 04/24/2019 12:19 PM WINE BOTTLE INSPECTOR Pulse 86 04/24/2019 12:19 PM WINE BOTTLE INSPECTOR Temperature 36.7 ??C (98.1 ??F) 04/24/2019 12:[address] Respiratory Rate - - Oxygen Saturation - [...] 1 Tablet (10 mg) by mouth daily inventory checker. 30 Tablet 5 04/08/2019 10/12/2019 levothyroxine 200 [...] Progress Notes * Rosales Tapia RN - 04/24/2019 12:47 PM CST 1.0 volume plasma exchange completed using the right ac for draw and right chest bard port for return with 5% albumin as replacement fluid. Procedure completed without issues. Gauze + occlusive dressing applied to both side. Pt left ambulatory. BOTTLE INSPECTOR documented in this encounter Plan of Treatment Upcoming Encounters Date Type Department Care Team (Late st Contact Info) Description 09/14/2024 3:00 PM CDT Office Visit [facility] Heart and Vascular - [place] [id number] [place] [address] Marlys Mayer MD [address] [place] [address] documented as of this encounter Procedures Procedure Name Priority Date/Time Associated Diagnosis Comments CBC WITH DIFFERENTIAL Routine 04/24/2019 10:17 AM WINE BOTTLE INSPECTOR Hypertriglyceridemi a TRIGLYCERIDE Routine 04/24/2019 10:17 AM WINE BOTTLE INSPECTOR Hypertriglyceridemi a documented in this encounter Results * (ABNORMAL) CBC WITH DIFFERENTIAL (04/24/2019 10:17 AM WINE BOTTLE INSPECTOR) WBC 8.4 4.0 - 9.8 K/uL 04/24/2019 10:23 AM [facility] RBC 4.11 3.90 - 4.90 M/uL 04/24/2019 10:23 AM [facility] - . [facility] HEMOGLOBIN 12.0 11.8 - 14.8 g/dL 04/24/2019 10:23 AM WINE BOTTLE INSPECTOR [facility] HEMATOCRIT 36.4 35.5 - 44.0 % 04/24/2019 10:23 AM [facility] MCV 88.6 82.0 - 99.0 fL 04/24/2019 10:23 AM [facility] . [facility] MCH 29.2 27.2 - 32.6 pg 04/24/2019 10:23 AM [facility] MCHC 33.0 31.5 - 35.5 g/dL 04/24/2019 10:23 AM [facility] RDW 14.6(H) 11.5 - 14.5 % 04/24/2019 10:23 AM [facility] RDW-STDEV 47.3 37.1 - 48.7 fL 04/24/2019 10:23 AM [facility] - [facility] KIMO PLATELETS 262 140 - 350 K/uL 04/24/2019 10:23 AM [facility] MPV 9.4 9.3 - 12.4 fL 04/24/2019 10:23 AM [facility] KIMO NEUTROPHILS 68 % 04/24/2019 10:23 AM [facility] KIMO LYMPHOCYTES 25 % 04/24/2019 10:23 AM [facility] KIMO MONOCYTES 6 % 04/24/2019 10:23 AM [facility] KIMO EOSINOPHILS 1 % 04/24/2019 10:23 AM [facility] KIMO BASOPHILS 1 % 04/24/2019 10:23 AM [facility] KIMO IMMATURE GRANULOCYTES 1 % 04/24/2019 10:23 AM [facility] Comment:IG (Immature Granulo cyte) count includes Metamyelocytes, Myelocytes, and Promyelocytes NEUTROPHIL ABSOLUTE 5.71 1.90 - 7.00 K/uL 04/24/2019 10:23 AM [facility] LYMPHOCYTE ABSOLUTE 2.09 0.70 - 4.50 K/uL 04/24/2019 10:23 AM [facility] MONOCYTE ABSOLUTE 0.48 0.10 - 1.30 K/uL 04/24/2019 10:23 AM [facility]. [facility] EOSINOPHIL ABSOLUTE 0.07 0.00 - 0.70 K/uL 04/24/2019 10:23 AM [facility] BASOPHILS ABSOLUTE 0.04 0.00 - 0.20 K/uL 04/24/2019 10:23 AM [facility]. [facility] IMMATURE GRANULOCYTES ABSOLUTE 0.05(H) 0.00 - 0.03 K/uL 04/24/2019 10:23 AM [facility] Blood Collection / Unknown 04/24/2019 10:17 AM [facility] 04/24/2019 10:19 AM [facility] David Boyle MD HEMATOLOGY ORDERABL ES [facility] CLIA# [id number] [address] [place] [address] * (ABNORMAL) TRIGLYCERIDE (04/24/2019 10:17 AM WINE BOTTLE INSPECTOR) TRIGLYCERIDE 807(H) <150 mg/dL 04/24/2019 11:05 AM WINE BOTTLE INSPECTOR [facility] Blood Collection / Unknown 04/24/2019 10:17 AM WINE BOTTLE INSPECTOR 04/24/2019 10:19 AM WINE BOTTLE INSPECTOR Narrative [facility] - 04/24/2019 11:05 AM WINE BOTTLE INSPECTOR TRIGLYCERIDES ? mg/dL Normal ?< 150 Borderline High ?150 - 199 High ? 200 - 499 Very High ? >= 500 Based on AHA/NCEP Guidelines. David Boyle MD CHEMISTRY ORDERABLE S [facility] CLIA# [id number] [address] [place] [address] documented in this encounter Visit Diagnoses Diagnosis Hypertriglyceridemia- Primary Pure hyperglyceridemia documented in this encounter Administered Medications Inactive Administered Medications - up to 3 most recent administrations Medication Order MAR Action Action Date Dose Rate Site calcium GLUCONATE 2,000 mg in sodium chloride 0.9% 120 mL IVPB 2,000 mg, IV, ONE TIME ONLY, 1 dose, On Sat04/24/19 at 1000, Routine New Bag 04/24/2019 10:00 AM WINE BOTTLE INSPECTOR 2,000 mg 120 mL/hr heparin injection 2,000 Units 2,000 Units, IV, ONE TIME ONLY, 1 dose, On Sat04/24/19 at 1030, Routine, Please tube to station [id number], blood bank Given 04/24/2019 12:15 PM WINE BOTTLE INSPECTOR 2,000 Units documented in this encounter Care Teams Ticket Sorter Relationship Specialty Start Date End Date Guerrero Middleton PA-C PCP - General Physician Cell Attendant 10/18/18 documented as of this encounter
--- OUTSIDE RECORDS SUMMARY | 2024-05-03 20:43 | XMS_ITS | Encounter Summary ---
Author Organization [facility] Address [address] [place] [address] Care Team Providers Care Break Off Worker Name Role Phone Guerrero Middleton PA-C Primary Care Provide r Encounter Details Date Type Department Care Team (Latest Contact Info) Description 04/08/2019 9:36 AM PARK LANDSCAPE ARCHITECT - 04/08/2019 11:59 PM [facility] Hospital Encounter [facility] Blood Bank Donor Center [facility] [address] [place] [address] Alize Arteaga MD NO ADDRESS ON FILE [...] often do you attend chur ch or mosque services? Never 08/21/2018 Do you [...] Sign Reading Time Taken Comments Blood Pressure 110/68 04/08/2019 12:28 PM PARK LANDSCAPE ARCHITECT Pulse 102 04/08/2019 12:28 PM PARK LANDSCAPE ARCHITECT Temperature 36.8 ??C (98.3 ??F) 04/08/2019 12:[address] Respiratory Rate 16 04/08/2019 12:28 PM PARK LANDSCAPE ARCHITECT Oxygen Saturation - - Inhaled Oxygen Concentration [...] 1 Tablet (10 mg) by mouth daily telephone advice nurse. 30 Tablet 5 04/08/2019 10/12/2019 HYDROcodone-acetamino phen (NORCO) 5-325 mg tabletIndications:Gen eralized [...] Progress Notes * Rosales Tapia, RN - 04/08/2019 10:00 AM CST 1.0 volume plasma exchange completed using the right ac for draw and right chest bard port for return with 5% albumin as replacement fluid. Procedure completed without issues Unable to establish goodblood return on left chest bard port after instilling cathflo for [address] Arteaga aware. Gauze + occlusive dressing applied to both side. Pt left ambulatory. LANDSCAPE ARCHITECT * Alize Arteaga MD - 04/08/2019 10:00 AM CST CC: ??43??yo female with [...] Oriented x 3 - Normal Affect ?Labs: : WBC 9.5, Hgb 12.6, Hct 37.5, Plt 220 04/08/19: triglyceride??1,419??(preprocedure) ?? A&P: 1. 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 2. ??We will perform a 1.0 volume plasma exchange with all albumin replacement with 100% fluid balance with 2 g calcium gluconate over the procedure. 3.??Per Drs. Rudd and Moreno,??goal??triglycerides <500 initially. ??We will obtain triglycerides prior to each procedure. ??Realistically we have seen improvement in keeping patient out of hospital with keeping result <1500. 4.?Still have not established steady state maintenance. ??We will continue with??one procedure per week. 5. Left port continues to require cathflo. ??Will continue to monitor. Discussed with Drs. Willoughby and Forrest 04/07/19. Will send patient to IR for evaluation. Order in, IR to schedule. ?? I have seen and examined the patient, reviewed pertinent notes and records, and remained immediately available throughout the procedure. ?? Alize Arteaga MD, PhD Lock Setter, therapeutic apheresis service [phone] ?? Procedure??notes:??Cathflo needed to get adequate return in L BARD powerflow port.??L port not usedfor procedure. R bard port and R AC used for procedure. Patient tolerated procedure well.?? LANDSCAPE ARCHITECT documented in this encounter Plan of Treatment Upcoming Encounters Date Type Department Care Team (Late st Contact Info) Description 09/14/2024 3:00 PM CDT Office Visit [facility] Heart and Vascular - [facility] [address] [place] [address] Marlys Mayer MD [address] [facility] [place] [address] documented as of this encounter Procedures Procedure Name Priority Date/Time Associated Diagnosis Comments TRIGLYCERIDE Routine 04/08/2019 10:37 AM PARK LANDSCAPE ARCHITECT Hypertriglyceridemia Mixed hyperlipidemia documented in this encounter Results * (ABNORMAL) TRIGLYCERIDE (04/08/2019 10:37 AM PARK LANDSCAPE ARCHITECT) TRIGLYCERIDE 2,686(H) <150 mg/dL 04/08/2019 6:07 PM PARK LANDSCAPE ARCHITECT [facility] Blood Venipuncture / Unknown 04/08/2019 10:37 AM PARK LANDSCAPE ARCHITECT 04/08/2019 10:37 AM PARK LANDSCAPE ARCHITECT Narrative [facility] - 04/08/2019 6:07 PM PARK LANDSCAPE ARCHITECT TRIGLYCERIDES ? mg/dL Normal ?< 150 Borderline High ?150 - 199 High ? 200 - 499 Very High ? >= 500 Based on AHA/NCEP Guidelines. Alize Arteaga MD CHEMISTRY ORDER [place] [facility]# [id number] [address] [place] [address] documented in this encounter Visit Diagnoses Diagnosis Hypertriglyceridemia- Primary Pure hyperglyceridemia Mixed hyperlipidemia documented in this encounter Administered Medications Inactive Administered Medications - up to 3 most recent administrations Medication Order MAR Action Action Date Dose Rate Site alteplase (CATHFLO ACTIVASE) 2 mg injection 2 mg 2 mg, Dwell, ONE TIME ONLY, 1 dose, On Sat04/08/19 at 0900, Routine, Please tube to station [id number], blood bank Given 04/08/2019 10:48 AM PARK LANDSCAPE ARCHITECT 2 mg Chest, Left calcium GLUCONATE 2,000 mg in sodium chloride 0.9% 120 mL IVPB 2,000 mg, IV, INTRA-PROCEDURE ONCE, 1 dose, Starting on Sat04/08/19 at 0930, Until Sat04/08/19 at 1211, Routine New Bag 04/08/2019 10:55 AM PARK LANDSCAPE ARCHITECT 2,000 mg 240 mL/hr heparin injection 2,000 Units 2,000 Units, IV, ONE TIME ONLY, 1 dose, On Sat04/08/19 at 1100, Routine, Please tube to 516, thanks! Given 04/08/2019 12:28 PM PARK LANDSCAPE ARCHITECT 2,000 Units heparin injection 2,000 Units 2,000 Units, IV, ONE TIME ONLY, 1 dose, On Sat04/08/19 at 1100, Routine, Tube to 516, thanks! Given 04/08/2019 11:00 AM PARK LANDSCAPE ARCHITECT 2,000 Units water sterile injection See Admin Instructions, ONE TIME ONLY, 1 dose, On Sat04/08/19 at 0900, Routine, Please tube 516, blood bank Given 04/08/2019 10:48 AM PARK LANDSCAPE ARCHITECT Chest, Left documented in this encounter Care Teams Break Off Worker Relationship Specialty Start Date End Date Guerrero Middleton PA-C PCP - General Physician Ham Stringer 02/13/18 documented as of this encounter
--- OUTSIDE RECORDS SUMMARY | 2024-05-03 20:43 | XMS_ITS | Encounter Summary ---
Author Organization [facility] Address [address] [place] [address] Care Team Providers Care Reinsurance Claims Analyst Name Role Phone Guerrero Middleton PA-C Primary Care Provide r Reason for Visit * Reason Comments Abdominal Pain pt to ed with c/o ge neralized abd pain d/t really bad hypertriglyceridemia . +vomiting, denies any bowel issues. had treatment on saturday. * Auth/Cert Specialty Diagnoses / Procedures Referred By Tequila bowman Referred To Contact Critical Care Medicine [facility] Unit [address] [place] [address] Referral ID Status Reason Start Date Expiration Date Visits Re quested Visits Authorized [id number] 1 1 Encounter Details Date Type Department Care Team (Latest Contact Info) Description 02/01/2019 9:49 PM CDT - 02/04/2019 4:08 PM CDT Hospital Encounter [facility] [address] [place] [address] Rodney Connelly DO NO ADDRESS ON FILE Araceli Santo MD [address] [place] [address] Laurie Casper MD [address] [facility] [address] [facility] [address] Stephanie Babin MD [address] [place] [id number] Recurrent pancreatitis Discharge Disposition: Home or Self [...] often do you attend chur ch or amish services? Never 08/21/2018 Do you [...] Sign Reading Time Taken Comments Blood Pressure 119/68 02/04/2019 11:03 AM CDT Pulse 82 02/04/2019 11:03 AM CDT Temperature 37.2 ??C (99 ??F) 02/04/2019 11: 03 AM CDT Respiratory Rate 12 02/04/2019 11:0 3 AM CDT Oxygen Saturation 96% 02/04/2019 11: 03 AM CDT Inhaled Oxygen Concentration - - Weight 85.6 kg (188 lb 12.8 oz) 02/02/2019 2:23 PM CDT Height 165.1 cm (5' 5 ) 02/02/2019 2:23 PM CDT Body Mass Index 31.42 02/02/2019 2:23 PM CDT documented in this encounter Discharge Summaries * Stephanie Babin MD - 02/04/2019 2:39 PM CDT [facility] Adult Hospitalist Discharge Summary Casandra Doss 43 y.o. female 1975 CSN: [id number] Date of Admission: 02/01/2019 Date of Discharge: 02/04/2019 Discharging Physician: Stephanie Babin MD LOS: 2 days PCP: Guerrero Middleton PA-C Activity: activity as tolerated. Dispo: home Diet: DIET DIABETIC Code Status at Discharge: Full Code Wound Care: None needed Admitting Dx: Abdominal pain Discharge Diagnoses: Active Hospital Problems Diagnosis ??? Recurrent pancreatitis ??? Acquired hypothyroidism ??? Mixed hyperlipidemia ??? GERD (gastroesophageal reflux disease) ??? Hypertriglyceridemia ??? Chylomicronemia syndrome ??? Hypothyroidism Resolved Hospital Problems No resolved problems to display. Discharge medications and new prescriptions: Medication List CONTINUE taking these medications citalopram 40 mg tablet Commonly known as: CeleXA Take 40 mg by mouth daily at bedtime. Refills: 0 CREON 12,000-38,000-60,000 unit capsule Take 2 Capsules by mouth 4 times daily with meals and at bedtime. Refills: 0 Generic drug: qmcakr-bkktatiw-vayerrj DR dicyclomine 10 mg capsule Commonly known as: BENTYL Take 1 Capsule by mouth 4 times daily. Signed by: Sadie Roldan MD Quantity: 60 Capsule Refills: 0 fenofibrate 160 mg Tablet Commonly known as: LOFIBRA Take 1 Tab by mouth daily. Signed by: Prudence Gates MD Quantity: 90 Tab Refills: 0 HYDROcodone-acetaminophen 5-325 mg tablet Commonly known as: NORCO Take 1 Tablet by mouth every 6 hours as needed for Pain, Severe. Max Daily Amount: 4 Tablets Signed by: Stephanie Babin MD Quantity: 10 Tablet Refills: 0 insulin aspart 100 unit/mL injection [...] mouth daily at bedtime . Refills: 0 Where to Get Your Medications Information about where to get these medications is not yet available Ask your nurse or doctor about these medications ?? HYDROcodone-acetaminophen 5-325 mg tablet Consultants: IP CONSULT TO HOSPITALIST IP CONSULT TO ENDOCRINOLOGY Significant Diagnostic Studies This Admission: ?? none Labs from this Hospitalization Needing Follow Up: none Discharge Lab Data: Lab Results Component Value Date/Time WBC 11.5 (H) 02/01/2019 10:15 PM HEMOGLOBIN 12.0 02/01/2019 10:15 PM HEMATOCRIT 37.5 02/01/2019 10:15 PM PLATELETS 282 02/01/2019 10:15 PM SODIUM 139 02/01/2019 10:15 PM CHLORIDE 100 02/01/2019 10:15 PM POTASSIUM 4.5 02/01/2019 10:15 PM CO2 23 02/01/2019 10:15 PM BUN 9 02/01/2019 10:15 PM CREATININE 0.58 02/01/2019 10:15 PM GLUCOSE 242 (H) 02/01/2019 10:15 PM INR 1.1 11/14/2018 09:40 AM AST 17 02/01/2019 10:15 PM ALT 11 02/01/2019 10:15 PM CRP 115.8 (H) 08/23/2018 07:04 AM Discharge Exam: BP 119/68 (BP Location: Right arm, Patient Position (BP): Supine) Pulse 82 Temp 99 ??F (37.2 ??C) (Oral) Resp 12 Ht 5' 5 (1.651 m) Wt 85.6 kg (188 lb 12.8 oz) SpO2 96% ? No BMI 31.42 kg/m?? Physical Exam: General appearance alert, cooperative, no distress, appears stated age Lungs clear to auscultation bilaterally Heart regular rate and rhythm, S1, S2 normal, no murmur, click, rub or gallop Abdomen soft, non-tender. Bowel sounds normal. No masses, No organomegaly Extremities extremities normal, atraumatic, no cyanosis or edema Skin Skin color, texture, turgor normal. No rashes or lesions Hospital Course: ?? 43 y/o female with chylomicronemia syndrome who gets weekly apheresis, DM, GERD admitted for above PROBLEM LIST: 1. Abdominal pain -??pt with hx of recurrent pancreatitis with elevated TG however TG now much lessthan they have been in the past. Srikanth loomis. Appears stable discussed with Dr. Mondragon - plan plasmapheresis 02/03 instead of tomorrow; can resume her normal schedule as outpatient; she is taking in po without abdominal pain; 2. Chylomicronemia -??pt with weekly apheresis; consult endocrinology in am (pt reports Dr. Arteaga, pathology, is out until 02/04). - see above 3. Pancreatic insufficiency -??cont creon QID 4. GERD -??cont PPI 5. HLD - ??Cont statin 6. DM -??discussed with endocrine that she can go back on her home regiment. Patient to make sure she checks her sugars well. Consider 1/2 her dose til she is eating well. F/u with her parts counterman as outpatient; discussed with patient 7. Insomnia -??cont trazodone Nutritional status and in-house recommendations: Current Diet and/or Nutritional Supplementation ordered: DIET DIABETIC Discharge Condition: improving. Follow-up: Guerrero Middleton PA-C in 1 week(s). More than 35 minutes were spent in this discharge activity. Signed: Stephanie Babin MD 02/04/2019, 2:39 PM documented in this encounter Discharge Instructions * Discharge Instructions* Stephanie Babin MD - 02/04/2019 2:37 PM CDT Your discharging physician is Stephanie Babin MD and may be reached at for any questions or concerns until you see your doctor. FOLLOW-UP Follow up with Guerrero Middleton PA-C in 1 week(s). Prescriptions given? Yes Heart Patients: Weigh yourself everyday at the same time, with the same amount of clothing and after you have emptied your bladder. Keep a log of your daily weights and bring them with you to your physician appointments. Call your physician (*) if you have a weight gain of 3 pounds in one day (or 5pounds in 2 or more days) or (*) if you have increased shortness of breath or (*) if you have swelling in your feet, belly or legs. <<<Call 911 or go to the nearest emergency room if you have increased shortness of breath or chest pain or discomfort that is not relieved by nitroglycerin. Smoking Exposure: [facility] encourages all patients to decrease risks associated with smoking and second hand smoke exposure. If you smoke you are advised to quit. Ask your health care provider for advice if you need assistance to stop smoking. Avoid second-hand smoke exposure and do not let people smoke in your home. Please call [phone], our pulmonary rehabilitation department, to learn more about options to reduce your risks. ACTIVITY Your activity level is: increase activity as tolerated and no smoking. DIET Your diet is: DIET DIABETIC WOUND CARE For your wound/incision: NA. documented in this encounter Medications at Time [...] this encounter Progress Notes * Nery Viramontes NP - 02/04/2019 10:26 AM CDT Images from the original note were not included. [facility] INPATIENT DIABETES CONSULT NOTE Name: Casandra Doss : 1975 Date: 02/04/2019 Room/Bed: [facility] Hospital Day: LOS: 2 days SUBJECTIVE Patient laying in bed Tolerating PO nutrition Denies complaints, except for nasal congestion Plasmapheresis completed yesterday TG this morning 377 REVIEW OF SYSTEMS: Constitutional: denies fevers, chills, sweats, fatigue, malaise, anorexia, weight loss Respiratory: denies cough, dyspnea, hemoptysis, stridor, wheeze, chest pain Cardiovascular: denies chest pain or discomfort, exertional chest pressure/discomfort, fatigue, pounding heart/chest, nausea, syncope, shortness of breath Gastrointestinal: abdominal pain and nausea Endocrine: denies sudden changes in mood, temperature intolerance, polyuria, polydipsia, skin changes ASSESSMENT AND PLAN: Diabetes mellitus, with long-term insulin use Last a1c 7.7% Diabetic diet 15 units Lantus HS, 3 units +/- ldssi ACHS POC BS If patient discharged today, can resume home insulin regimen Patient to follow up with [facility] endocrine Abdominal pain History of recurrent pancreatitis with elevated triglycerides Plasmapheresis completed yesterday Chylomicronemia Weekly plasmapheresis Hypothyroidism Continue FINISH CARPENTER Levothyroxine Hyperlipidemia Continue Atorvastatin 80 mg Recommendations were discussed with Dr. Rudd, patient, hospitalist, and nursing staff. Please call or page with questions. STELLA Bright CDE 7A - 7P [phone] cell # 7P - 7A [phone] pager MEDICATIONS: Current Facility-Administered Medications Medication Dose Route Frequency Provider Last Rate Last Dose ??? [COMPLETED] calcium GLUCONATE 2,000 mg in sodium chloride 0.9% 120 mL IVPB 2,000 mg IV ONCE Nicole Mondragon MD Stopped at 02/03/19 1611 ??? [COMPLETED] heparin injection 2,000 Units 2,000 Units IV ONCE Nicole Mondragon MD 2,000 Units at 02/03/19 1618 ??? [COMPLETED] heparin injection 2,000 Units 2,000 Units IV ONCE Nicole Mondragon MD 2,000 Units at 02/03/19 1617 ??? insulin lispro (HumaLOG) variable dose injection subCUT TID Meals Jazmin Viramontesecca L, MAGNETIC DOCTOR ??? insulin lispro (HumaLOG) variable dose injection subCUT Daily BEDTIME Jazmin Viramontesecca L, MAGNETIC DOCTOR ??? insulin lispro (HumaLOG) injection 3 Units 3 Units subCUT TID Meals Wander, Nery L, MAGNETIC DOCTOR 3 Units at 02/04/19 1023 ??? [DISCONTINUED] insulin lispro (HumaLOG) injection 3 Units 3 Units subCUT TID Meals Wander Nery L, MAGNETIC DOCTOR ??? ondansetron (ZOFRAN) 4 mg/2 mL injection 4 mg 4 mg IV q 6 hour PRN Rodney Connelly DO 4 mg at 02/03/19 2200 ??? LORazepam (ATIVAN) 2 mg/mL injection 1 mg 1 mg IV q 6 hour PRN Rodney Connelly DO ??? HYDROcodone-acetaminophen (NORCO) 5-325 mg per tablet 1 Tablet 1 Tablet Oral q 4 hour PRN Araceli Santo MD 1 Tablet at 02/04/19911 ??? LORazepam (ATIVAN) tablet 1 mg 1 mg Oral BID PRN Araceli Santo MD 1 mg at 02/02/19 1156 ??? dicyclomine (BENTYL) capsule 10 mg 10 mg Oral QID Araceli Santo MD 10 mg at 02/04/19911 ??? niacin SR capsule 500 mg 500 mg Oral Daily BEDTIME Araceli Santo MD ??? oczkmu-byseztnu-zmzksli DR (CREON) 12,000-38,000-60,000 unit per capsule 2 Capsule 2 Capsule Oral QID Meals Araceli Santo MD 2 Capsule at 02/04/19911 ??? pantoprazole (PROTONIX) tablet 40 mg 40 mg Oral BID Araceli Santo MD 40 mg at 02/04/19911 ??? citalopram (CeleXA) tablet 40 mg 40 mg Oral Daily BEDTIME Araceli Santo MD 40 mg at 02/03/192040 ??? traZODone (DESYREL) tablet 100 mg 100 mg Oral Daily BEDTIME Araceli Santo MD 100 mg at 02/03/192040 ??? levothyroxine (SYNTHROID) tablet 200 mcg 200 mcg Oral Daily Araceli Santo MD 200 mcg at 02/04/19 0545 ??? naloxone (NARCAN) 0.4 mg/mL injection 0.1 mg 0.1 mg IV See Admin Notes Araceli Santo MD ??? sodium chloride 0.9% infusion IV Continuous Araceli Santo MD 125 mL/hr at 02/04/19 0658 ??? acetaminophen (TYLENOL) tablet 650 mg 650 mg Oral q 6 hour PRN Araceli Santo MD ??? enoxaparin (LOVENOX) injection 40 mg 40 mg subCUT q 24 hour Araceli Santo MD 40 mg at 02/03/19 1201 ??? HYDROmorphone (DILAUDID) 2 mg/mL injection 0.3 mg 0.3 mg IV q 3 hour PRN Laurie Casper MD 0.3 mg at 02/04/19 0615 ??? dextrose 5% - sodium chloride 0.9% infusion 40 mL/hr IV See Admin Notes Nery Viramontes, MAGNETIC DOCTOR ??? dextrose 50% (D50) syringe 12.5 Gram 12.5 Gram IV See Admin Notes Nery Viramontes, MAGNETIC DOCTOR ??? dextrose 50% (D50) syringe 25 Gram 25 Gram IV See Admin Notes Nery Viramontes, MAGNETIC DOCTOR ??? glucagon HCl 1 mg injection 1 mg 1 mg IM See Admin Notes Nery Viramontes, MAGNETIC DOCTOR ??? atorvastatin (LIPITOR) tablet 80 mg 80 mg Oral Daily BEDTIME Araceli Santo MD 80 mg at 02/03/19 2041 ??? insulin glargine (LANTUS) injection 15 Units 15 Units subCUT Daily BEDTIME Nery Viramontes NP 15 Units at 02/03/19 204 ??? [DISCONTINUED] insulin lispro (HumaLOG) variable dose injection subCUT q 4 hour Nery Viramontes NP ??? dextrose 5% - sodium chloride 0.9% infusion IV Continuous Rodney Connelly DO Stopped at 02/02/19 1975 ALLERGIES: Allergies Allergen Reactions ??? Green Pepper [...] partial due to endometriosis 2006 ??? HX TUNNELED VENOUS CATHETER PLACEMENT Right 09/29/2018 ??? [place] ESOPHAGOGASTRODUODENOSCOPY TRANSORAL DIAGNOSTIC N/A 03/08/2018 ESOPHAGOGASTRODUODENOSCOPY performed by Ceasar Vega MD at [facility] FAMILY HISTORY: Family History Problem [...] level: Not on file Occupational History Employer: [employer] Social Needs ??? Financial resource strain: Not [...] Gets together: Three times a week Attends amish service: Never Active member of club or organization: No Attends meetings of clubs or organizations: Never Relationship status: ??? Intimate partner violence: Fear of current or ex partner: No Emotionally abused: No Physically abused: No Forced sexual activity: No Other Topics Concern ??? Not on file Social History Narrative Merged History Encounter PHYSICAL EXAM: BP 117/71 (BP Location: Right arm, Patient Position (BP): Supine) Pulse 79 Temp 98.3 ??F (36.8 ??C) (Oral) Resp 13 Ht 5' 5 (1.651 m) Wt 85.6 kg (188 lb 12.8 oz) SpO2 92% ?No BMI 31.42 kg/m?? GEN: well-nourished, NAD CV: RRR RESP: CTAB ABD: s/nt/nd NEURO: A&O LABS: Recent Labs 02/01/19 2215 WBC 11.5* HGB 12.0 HCT 37.5 PLT 282 NA 139 K 4.5 CL 100 CO2 23 BUN 9 CREAT 0.58 GLUCOSE 242* ALT 11 AST 17 Previous Hemoglobin A1C Results: HEMOGLOBIN A1C Date Value Ref Range Status 06/29/2018 7.7 (H) <5.7 % Final 05/16/2018 8.0 (H) <5.7 % Final 03/08/2018 8.7 (H) <5.7 % Final POC Glucose Range: Lab Results Component Value Date/Time GLUCPOC 167 (H) 02/03/2019 08:37 PM GLUCPOC 93 02/03/2019 04:00 PM GLUCPOC 108 (H) 02/03/2019 11:59 AM GLUCPOC 122 (H) 02/03/2019 08:54 AM GLUCPOC 120 (H) 02/03/2019 07:58 AM GLUCPOC 116 (H) 02/03/2019 03:33 AM GLUCPOC 117 (H) 02/03/2019 12:18 AM GLUCPOC 144 (H) 02/02/2019 08:03 PM GLUCPOC 139 (H) 02/02/2019 03:43 PM GLUCPOC 142 (H) 02/02/2019 12:14 PM Associated attestation - Blake Rudd MD - 02/04/2019 3:27 PM CDT Discussed with MAGNETIC DOCTOR. Agree with documentation. * Daniel Whitehead RN - 02/03/2019 4:51 PM CDT Plasma exchange completed today using right chest BARD ports for draw and return. Distal port used for draw and medial for return. 1.0 volume, 100% fluid balance using 5% Albumin as replacement fluidcompleted. 2 grams calcium gluconate given intra procedure. Patient tolerated procedure well. * Nery Viramontes NP - 02/03/2019 1:06 PM CDT Images from the original note were not included. [facility] INPATIENT DIABETES CONSULT NOTE Name: Casandra Doss : 1975 Date: 02/03/2019 Room/Bed: 4210/1 Hospital Day: LOS: 1 day SUBJECTIVE Patient laying in bed Abdominal pain managed Only complaint is a dry nose from the O2 O2 NC initiated - 96% REVIEW OF SYSTEMS: Constitutional: denies fevers, chills, sweats, fatigue, malaise, anorexia, weight loss Respiratory: denies cough, dyspnea, hemoptysis, stridor, wheeze, chest pain Cardiovascular: denies chest pain or discomfort, exertional chest pressure/discomfort, fatigue, pounding heart/chest, nausea, syncope, shortness of breath Gastrointestinal: abdominal pain and nausea Endocrine: denies sudden changes in mood, temperature intolerance, polyuria, polydipsia, skin changes ASSESSMENT AND PLAN: Diabetes mellitus, with long-term insulin use Last a1c 7.7% NPO 15 units Lantus HS, Q4 ldssi POC BS Once diet is advanced will add prandial insulin. Abdominal pain History of recurrent pancreatitis with elevated triglycerides TG 638 this morning Plan for plasmapheresis today Chylomicronemia Weekly plasmapheresis Hypothyroidism Continue FINISH CARPENTER Levothyroxine Hyperlipidemia Continue Atorvastatin 80 mg Recommendations were discussed with Dr. Rudd, patient, hospitalist, and nursing staff. Please call or page with questions. STELLA Bright CDE 7A - 7P [phone] cell # 7P - 7A [phone] pager MEDICATIONS: Current Facility-Administered Medications Medication Dose Route Frequency Provider Last Rate Last Dose ??? calcium GLUCONATE 2,000 mg in sodium chloride 0.9% 120 mL IVPB 2,000 mg IV ONCE Nicole Mondragon MD ??? ondansetron (ZOFRAN) 4 mg/2 mL injection 4 mg 4 mg IV q 6 hour PRN Rodney Connelly, 4 mg at 02/03/19 1023 ??? LORazepam (ATIVAN) 2 mg/mL injection 1 mg 1 mg IV q 6 hour PRN Rodney Connelly DO ??? HYDROcodone-acetaminophen (NORCO) 5-325 mg per tablet 1 Tablet 1 Tablet Oral q 4 hour PRN Araceli Santo MD 1 Tablet at 02/03/19 1023 ??? LORazepam (ATIVAN) tablet 1 mg 1 mg Oral BID PRN Araceli Santo MD 1 mg at 02/02/19 1156 ??? dicyclomine (BENTYL) capsule 10 mg 10 mg Oral QID Araceli Santo MD 10 mg at 02/03/19 1201 ??? niacin SR capsule 500 mg 500 mg Oral Daily BEDTIME Araceli Santo MD ??? nocqiz-cqwxmhsm-dirgvar DR (CREON) 12,000-38,000-60,000 unit per capsule 2 Capsule 2 Capsule Oral QID Meals Araceli Santo MD 2 Capsule at 02/03/19 1201 ??? pantoprazole (PROTONIX) tablet 40 mg 40 mg Oral BID Araceli Santo MD 40 mg at 02/03/19 0857 ??? citalopram (CeleXA) tablet 40 mg 40 mg Oral Daily BEDTIME Araceli Santo MD 40 mg at 02/02/192009 ??? traZODone (DESYREL) tablet 100 mg 100 mg Oral Daily BEDTIME Araceli Santo MD 100 mg at 02/02/192009 ??? levothyroxine (SYNTHROID) tablet 200 mcg 200 mcg Oral Daily Araceli Santo MD 200 mcg at 02/03/19 0635 ??? naloxone (NARCAN) 0.4 mg/mL injection 0.1 mg 0.1 mg IV See Admin Notes Araceli Santo MD ??? sodium chloride 0.9% infusion IV Continuous Araceli Santo MD 125 mL/hr at 02/03/19 0634 ??? acetaminophen (TYLENOL) tablet 650 mg 650 mg Oral q 6 hour PRN Araceli Santo MD ??? enoxaparin (LOVENOX) injection 40 mg 40 mg subCUT q 24 hour Araceli Santo MD 40 mg at 02/03/19 1201 ??? HYDROmorphone (DILAUDID) 2 mg/mL injection 0.3 mg 0.3 mg IV q 3 hour PRN Laurie Casper MD 0.3 mg at 02/03/19 1201 ??? [COMPLETED] flu vaccine quadrivalent 2018- 6mos up(PF) (FLUARIX QUAD,FLULAVAL QUAD,FLUZONE QUAD) 60 mcg (15 mcg x 4)/0.5 mL syringe 60 mcg 0.5 mL IM ONCE Araceli Santo MD 60 mcg at 02/02/19 1537 ??? dextrose 5% - sodium chloride 0.9% infusion 40 mL/hr IV See Admin Notes Nery Viramontes L, MAGNETIC DOCTOR ??? dextrose 50% (D50) syringe 12.5 Gram 12.5 Gram IV See Admin Notes Jazmin Viramontesecca Maxwell, MAGNETIC DOCTOR ??? dextrose 50% (D50) syringe 25 Gram 25 Gram IV See Admin Notes Yossi Viramontesca Maxwell, MAGNETIC DOCTOR ??? glucagon HCl 1 mg injection 1 mg 1 mg IM See Admin Notes Nery Viramontes, MAGNETIC DOCTOR ??? insulin lispro (HumaLOG) variable dose injection subCUT q 4 hour Nery Viramontes, MAGNETIC DOCTOR ??? atorvastatin (LIPITOR) tablet 80 mg 80 mg Oral Daily BEDTIME Araceli Santo MD 80 mg at 02/02/192009 ??? insulin glargine (LANTUS) injection 15 Units 15 Units subCUT Daily BEDTIME Nery ViramontesMAGNETIC DOCTOR 15 Units at 02/02/192014 ??? [DISCONTINUED] rosuvastatin (CRESTOR) tablet 20 mg 20 mg Oral Daily BEDTIME Araceli Santo MD ??? [DISCONTINUED] insulin glargine (LANTUS) injection 20 Units 20 Units subCUT Daily Breakfast Araceli Santo MD ??? [DISCONTINUED] insulin glargine (LANTUS) injection 30 Units 30 Units subCUT Daily BEDTIME Araceli Santo MD ??? dextrose 5% - sodium chloride 0.9% infusion IV Continuous Rodney Connelly DO Stopped at 02/02/19 0415 ??? [DISCONTINUED] insulin regular (HUMULIN R,NOVOLIN R) 100 Units in sodium chloride 0.9% 99 mL infusion 3 Units/hr IV Continuous Rodney Connelly DO Stopped at 02/02/19426 ALLERGIES: Allergies Allergen Reactions ??? Green Pepper [...] partial due to endometriosis 2006 ??? HX TUNNELED VENOUS CATHETER PLACEMENT Right 09/29/2018 ??? [place] ESOPHAGOGASTRODUODENOSCOPY TRANSORAL DIAGNOSTIC N/A 03/08/2018 ESOPHAGOGASTRODUODENOSCOPY performed by Ceasar Vega MD at [facility] FAMILY HISTORY: Family History Problem [...] level: Not on file Occupational History Employer: [employer] Social Needs ??? Financial resource strain: Not [...] Gets together: Three times a week Attends amish service: Never Active member of club or organization: No Attends meetings of clubs or organizations: Never Relationship status: ??? Intimate partner violence: Fear of current or ex partner: No Emotionally abused: No Physically abused: No Forced sexual activity: No Other Topics Concern ??? Not on file Social History Narrative Merged History Encounter PHYSICAL EXAM: BP 109/71 (BP Location: Right arm, Patient Position (BP): Supine) Pulse 96 Temp 99.1 ??F (37.3 ??C) (Oral) Resp 13 Ht 5' 5 (1.651 m) Wt 85.6 kg (188 lb 12.8 oz) SpO2 96% ?No BMI 31.42 kg/m?? GEN: well-nourished, NAD CV: RRR RESP: CTAB ABD: s/nt/nd NEURO: A&O LABS: Recent Labs 02/01/19 2215 WBC 11.5* HGB 12.0 HCT 37.5 PLT 282 NA 139 K 4.5 CL 100 CO2 23 BUN 9 CREAT 0.58 GLUCOSE 242* ALT 11 AST 17 Previous Hemoglobin A1C Results: HEMOGLOBIN A1C Date Value Ref Range Status 06/29/2018 7.7 (H) <5.7 % Final 05/16/2018 8.0 (H) <5.7 % Final 03/08/2018 8.7 (H) <5.7 % Final POC Glucose Range: Lab Results Component Value Date/Time GLUCPOC 108 (H) 02/03/2019 11:59 AM GLUCPOC 122 (H) 02/03/2019 08:54 AM GLUCPOC 120 (H) 02/03/2019 07:58 AM GLUCPOC 116 (H) 02/03/2019 03:33 AM GLUCPOC 117 (H) 02/03/2019 12:18 AM GLUCPOC 144 (H) 02/02/2019 08:03 PM GLUCPOC 139 (H) 02/02/2019 03:43 PM GLUCPOC 142 (H) 02/02/2019 12:14 PM GLUCPOC 140 (H) 02/02/2019 06:37 AM GLUCPOC 162 (H) 02/02/2019 04:04 AM Associated attestation - Blake Rudd MD - 02/03/2019 3:03 PM CDT Discussed with MAGNETIC DOCTOR. Agree with documentation. * Stephanie Babin MD - 02/03/2019 9:31 AM CDT [facility] Adult Hospitalist Progress Note Admit Date: 02/01/2019 Date of Note: 02/03/2019, 9:31 AM LOS: 1 day Previous history of present illness and review of systems have been reviewed today as documented inthe H&P on 02/01/2019; medications, labs, studies, notes, orders and consults have been reviewed. I have reviewed the notes from admission. Subjective: History reviewed with patient. Normally gets weekly plasmapheresis on wednesdays for elevated triglycerides. Started having abdominal pain - epigatrium 3 days prior to admission. Lipase not elevated. Objective: BP 110/60 (BP Location: Right arm, Patient Position (BP): Supine) Pulse 84 Temp 98 ??F (36.7 ??C) (Oral) Resp 12 Ht 5' 5 (1.651 m) Wt 85.6 kg (188 lb 12.8 oz) SpO2 96% ? No BMI 31.42 kg/m?? Temp (24hrs), Av.3 ??F (36.8 ??C), Min:98 ??F (36.7 ??C), Max:98.7 ??F (37.1 ??C) Exam: General: Alert, no distress. Heart: Regular rate and rhythm, S1, S2 normal Lungs: Clear to auscultation bilaterally Abdomen: Soft, non-tender. Feels benign to me Extremities: No edema Head: Normocephalic, atraumatic Neuro: Awake and alert; follows commands Data Base: I have reviewed all new labs and studies resulted and pertinent ones are noted below Lab Results Component Value Date/Time WBC 11.5 (H) 02/01/2019 10:15 PM HGB 12.0 02/01/2019 10:15 PM HCT 37.5 02/01/2019 10:15 PM PLT 282 02/01/2019 10:15 PM MCV 89.5 02/01/2019 10:15 PM Lab Results Component Value Date/Time NA 139 02/01/2019 10:15 PM K 4.5 02/01/2019 10:15 PM CL 100 02/01/2019 10:15 PM CO2 23 02/01/2019 10:15 PM CA 9.0 02/01/2019 10:15 PM BUN 9 02/01/2019 10:15 PM CREAT 0.58 02/01/2019 10:15 PM GLUCOSE 242 (H) 02/01/2019 10:15 PM TOTALPROTEIN 6.5 (L) 02/01/2019 10:15 PM ALBUMIN 4.5 02/01/2019 10:15 PM BILITOTAL <0.2 (L) 02/01/2019 10:15 PM ALKPHOS 62 02/01/2019 10:15 PM AST 17 02/01/2019 10:15 PM ALT 11 02/01/2019 10:15 PM ANIONGAP 16 02/01/2019 10:15 PM Trig [id number] b-hydroxybutyrate 0.2 Lactic acid 1.8 Assessment/Plan of Actively Managed Problems 1. Abdominal pain - pt with hx of recurrent pancreatitis with elevated TG however TG now much less than they have been in the past. Abd exam bland. Appears stable overnight; discussed with Dr. 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 Arteaga, pathology, is out until 02/04). - see above 3. Pancreatic insufficiency - cont creon QID 4. GERD - cont PPI 5. HLD - Cont statin 6. DM - off insulin gtt now and on lantus 15 units daily currently plus sliding scale; endocrine following 7. Insomnia - cont trazodone Nutrition: Current Diet and/or Nutritional Supplementation ordered: DIET NPO DVT Prophylaxis - Enoxaparin Pettit catheter:absent Lines: Peripheral IV PT POC OT POC Activity Order: Present Activity: in bed (02/03/19 0858) Current Code Status -Full Code Plan discussed with patient, questions answered. Current Planned Disposition - Home in 1-2 days Stable/Resolved Issues/Follow Up Needs Stephanie Babin MD * Demetra Lassiter RN - 02/03/2019 6:40 AM CDT VSS. Pt remained on room air- 2L NC throughout shift. Pt complains of constant abdominal pain and frequently asks for Dilaudid, pt consistently sleeping between care. No BM this shift. AUO. BG 116-144 throughout night. Will continue to monitor. * Lilo Back NP - 02/02/2019 8:14 PM CDT [facility] Two patient identifier: Casandra Doss 1975 Called for: BG 144. Pt NPO. Still give bedtime lantus? Last Recorded Vitals: BP 118/81 (BP Location: Right arm, Patient Position (BP): Sitting) Pulse 74 Temp 98.7 ??F (37.1 ??C) (Oral) Resp 21 Ht 5' 5 (1.651 m) Wt 85.6 kg (188 lb 12.8 oz) SpO2 100% ? No BMI 31.42 kg/m?? Pain Rating: Rest: 7 (02/02/192000) Handoff Information (if present): Documentation/Intervention/Outcome: Chart reviewed. Ok to give ordered lantus. Continue q4h accu-checks and SSI. Please call back any time if I can be of more assistance. LILO BACK NP * Yamil Bejarano RN - 02/02/2019 4:25 PM CDT Undress and Assess performed by the following two coworkers: Yamil OLGUIN, James QUARRYING SPECIALIST Admission or upon transfer to: TCU 4210 ~~~~~~~~~~~~~~~~~~~~~~~~~~~~ Is the patient a paraplegic/quadriplegic? N Does the patient have new purple/sissy/dark red over bony prominences? N Does the patient have an ostomy? N Is the length of stay >2 weeks? N ~If ANY answer 'yes'- please consult Wound Care~ Patient does not have skin breakdown. Location/ Description of breakdown: Wound care consult was not initiated. Is there skin breakdown under any Tanbark Laborer (splint, ETT ha, c-collar)? No If yes, please describe: Are there currently any skin protective dressings in place? No If yes, please describe skin under dressing: Protective Dressings Applied to Sacrum and Heels (Mepilex) as per Pathway? 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 Patient presented with abdominal pain, WBC 11.5, CMP unremarkable, TG 703. Patient initially on insulin gtt then discontinued. Blood sugars stable, patient NPO. Low dose Q4 insulin correction, POC BS Q4, 15 units Lantus tonight. Full note to follow, call with questions. Lian Viramontes, [facility] [phone] Associated attestation - Blake Rudd MD - 02/03/2019 6:44 AM CDT Discussed with MAGNETIC DOCTOR. Agree with documentation. * Laurie Casper MD - 02/02/2019 12:05 PM CDT Hospitalist Addendum Patient seen and examined; plan of care reviewed. Laurie Casper MD documented in this encounter H&P Notes * Araceli Santo MD - 02/02/2019 6:29 AM CDT [facility] Adult Hospitalist Admission H&P Date of Admission: 02/01/2019 Date of Service: 02/02/2019 Patient Name: Casandra Doss Courtesy Copy PCP: Guerrero Middleton PA-C Chief Complaint: abdominal pain HPI: Patient is a 43 y.o. female with a past medical history of chylomicronemia syndrome, DM, GERDwho presents with abdominal pain. Pt has hx of recurrent pancreatitis and presented to the ED because she felt like my triglycerides were high. pt has been undergoing apheresis weekly for elevated TG, most recently on 01/28. Pt reports she was very busy this week because her son got on 01/31 and thinks she was too active. She had 1 episode emesis prior to admission and no diarrhea. In the ED, pt had normal VS. WBC 11.5, CMP unremarkable, TG 703. Pt was started on insulin gtt for hypertriglyceridemia in the ED and planned for admission to TCU. Past Medical History: Past Medical History: Diagnosis [...] partial due to endometriosis 2006 ??? HX TUNNELED VENOUS CATHETER PLACEMENT Right 09/29/2018 ??? [place] ESOPHAGOGASTRODUODENOSCOPY TRANSORAL DIAGNOSTIC N/A 03/08/2018 ESOPHAGOGASTRODUODENOSCOPY performed by Ceasar Vega MD at [facility] Family History: Family History Problem [...] Binge frequency: Never ??? Drug use: No Outpatient Medications: I have personally reconciled the outpatient medications. Prior to Admission Medications Prescriptions Last Dose Informant Patient Reported? Taking? HYDROcodone-acetaminophen (NORCO) 5-325 mg tablet 02/01/2019 at Unknown time No Yes Sig: Take 1 Tablet by mouth every 6 hours as needed for Pain, Severe. Max Daily Amount: 4 Tablets LORazepam (ATIVAN) 1 mg tablet 02/01/2019 at Unknown time Yes Yes Sig: Take 1 mg by mouth 2 times daily as needed for Anxiety . gjvgycb-hqbctm-dbabtery DR (CREON) 60-12-38 capsule 02/01/2019 at Unknown time Yes Yes Sig: Take 2 Capsules by mouth 4 times daily with meals and at bedtime. citalopram (CeleXA) 40 mg tablet 02/01/2019 at Unknown time Yes Yes Sig: Take 40 mg by mouth daily at bedtime. dicyclomine (BENTYL) 10 mg capsule 02/01/2019 at Unknown time No Yes Sig: Take 1 Capsule by mouth 4 times daily. fenofibrate (LOFIBRA) 160 mg Oral Tab No No Sig: Take 1 Tab by mouth daily. insulin aspart (NovoLOG) 100 unit/mL injection 02/01/2019 at Unknown time Yes Yes Sig: Inject 1 Units by subcutaneous injection AM : 14 u Lunch: 16 u PM : 22 u . insulin glargine (LANTUS) 100 unit/mL injection 02/01/2019 at Unknown time Yes Yes Sig: Inject 28 Units by subcutaneous injection 2 times daily 28 units in the AM 38 units in the PM. levothyroxine 200 mcg tablet 02/01/2019 at Unknown time No Yes Sig: Take 1 Tablet by mouth daily without food in the morning 30 minutes before eating anything. metFORMIN (GLUCOPHAGE) 500 mg tablet 02/01/2019 at Unknown time No Yes Sig: Take 2 Tablets by mouth 2 times daily with meals. niacin SR 500 mg capsule 02/01/2019 at Unknown time No Yes Sig: Take 1 Capsule (500 mg) by mouth daily at bedtime. omega-3 fatty acids-fish oil 300-1,000 mg Capsule Yes No Sig: Take 2 Capsules by mouth 2 times daily. ondansetron (ZOFRAN ODT) 4 mg Tablet, Rapid Dissolve 02/01/2019 at Unknown time No Yes Sig: Dissolve 1 tablet on top of tongue, then swallow with saliva every 6 hours as needed for nausea/vomiting. pantoprazole (PROTONIX) 40 mg Tablet, Delayed Release (E.C.) 02/01/2019 at Unknown time Yes Yes Sig: Take 40 mg by mouth 2 times daily . rosuvastatin (CRESTOR) 20 mg tablet 02/01/2019 at Unknown time Yes Yes Sig: Take 20 mg by mouth daily at bedtime. spironolactone (ALDACTONE) 25 mg tablet Yes No Sig: Take 25 mg by mouth daily. traZODone (DESYREL) 100 mg tablet 02/01/2019 at Unknown time Yes Yes Sig: Take 100 mg by mouth daily at bedtime . Facility-Administered Medications: None Allergies: Allergies Allergen Reactions ??? Green Pepper Hives ??? Adhesive Unknown ??? Aspartame Headache All artificial sweeteners. ??? Adhesive Tape-Silicones Hives Review of Systems: Constitutional: No fever or chills Eyes: No visual changes Ears, nose, mouth, throat: No change in hearing, no sore throat, no rhinitis Cardiovascular: No chest pain or orthopnea Respiratory: No cough or SOB Gastrointestinal: abdominal pain, nausea Genitourinary: No hematuria, urgency or frequency Musculoskeletal: No pain or weakness Integumentary: No rashes or eruptions Neurological: No numbness or tingling Psychiatric: No anxiety or depression Endocrine: No heat or cold intolerance Hematologic/Lymphatic: No easy bruising or bleeding Allergic/Immunologic: Not experiencing frequent infections All other ROS reviewed and are negative Physical Exam: Patient Vitals for the past 8 hrs: BP Pulse Resp SpO2 02/02/19 0600 108/64 87 16 97 % 02/02/19 0520 -- 74 -- 96 % 02/02/19 0500 116/69 88 16 96 % 02/02/19 0430 122/73 73 16 93 % 02/02/19 0408 122/69 -- 16 95 % 02/02/19 0230 115/73 84 -- 91 % 02/02/19 0200 115/77 88 -- 95 % 02/02/19 0130 122/71 81 -- 95 % 02/02/19 0000 126/59 86 16 95 % Constitutional: Alert, cooperative, well-developed, no apparent distress. [...] wall is normal. Gastrointestinal: Abdomen is soft, mild diffuse tenderness without rebound or guarding. Lymphatics: There is no palpable cervical, axillary, [...] or performed during the hospital encounter of 02/01/19 (from the past 24 hour(s)) CBC WITH DIFFERENTIAL Result Value Ref Range WBC 11.5 (H) 4.0 - 9.8 K/uL RBC 4.19 3.90 - 4.90 M/uL HEMOGLOBIN 12.0 11.8 - 14.8 g/dL HEMATOCRIT 37.5 35.5 - 44.0 % MCV 89.5 82.0 - 99.0 fL MCH 28.6 27.2 - 32.6 pg MCHC 32.0 31.5 - 35.5 g/dL RDW 14.4 11.5 - 14.5 % RDW-STDEV 47.1 37.1 - 48.7 fL PLATELETS 282 140 - 350 K/uL MPV 9.3 9.3 - 12.4 fL NEUTROPHILS 67 % LYMPHOCYTES 26 % MONOCYTES 6 % EOSINOPHILS 1 % BASOPHILS 0 % IMMATURE GRANULOCYTES 1 % NEUTROPHIL ABSOLUTE 7.64 (H) 1.90 - 7.00 K/uL LYMPHOCYTE ABSOLUTE 2.94 0.70 - 4.50 K/uL MONOCYTE ABSOLUTE 0.68 0.10 - 1.30 K/uL EOSINOPHIL ABSOLUTE 0.13 0.00 - 0.70 K/uL BASOPHILS ABSOLUTE 0.05 0.00 - 0.20 K/uL IMMATURE GRANULOCYTES ABSOLUTE 0.06 (H) 0.00 - 0.03 K/uL COMPREHENSIVE METABOLIC PANEL Result Value Ref Range SODIUM 139 136 - 145 mmol/L POTASSIUM 4.5 3.5 - 5.0 mmol/L CHLORIDE 100 98 - 107 mmol/L CO2 23 22 - 29 mmol/L CALCIUM 9.0 8.6 - 10.2 mg/dL BUN 9 6 - 20 mg/dL CREATININE 0.58 0.51 - 0.95 mg/dL GLUCOSE 242 (H) 74 - 99 mg/dL TOTAL PROTEIN 6.5 (L) 6.7 - 8.6 g/dL ALBUMIN 4.5 3.5 - 5.2 g/dL BILIRUBIN TOTAL <0.2 (L) 0.3 - 1.2 mg/dL ALKALINE PHOSPHATASE 62 35 - 104 U/L AST 17 <33 U/L ALT 11 <34 U/L GFR >60 >=60 mL/min/1.73 sq meter GFR, >60 >=60 mL/min/1.73 sq meter ANION GAP 16 8 - 16 mmol/L LIPASE Result Value Ref Range LIPASE 52 13 - 60 U/L KETONES/BETA HYDROXYBUTYRATE Result Value Ref Range BETA HYDROXYBUTYRATE 0.2 <0.4 mmol/L TROPONIN BASELINE, 5TH GEN Result Value Ref Range TROPONIN T, BASELINE 5TH GEN <6 <=10 ng/L LIPID PANEL Result Value Ref Range CHOLESTEROL 162 <200 mg/dL TRIGLYCERIDE 703 (H) <150 mg/dL HDL 30 (L) 40 - 59 mg/dL LDL CALCULATED NON-HDL CHOLESTEROL 132 (H) <130 mg/dL POC GLUCOSE Result Value Ref Range POC GLUCOSE 212 (H) 74 - 99 mg/dL COMMENT, GLU POC Notified RN/MD [employer]LINE [employer] PILOT NAME EDUARD OLMEDO POC GLUCOSE Result Value Ref Range POC GLUCOSE 197 (H) 74 - 99 mg/dL AIRLINE TRANSP[employer] PILOT NAME BROWN AMBROCIO TROPONIN 2 HR, 5TH GEN Result Value Ref Range TROPONIN T, 2 HR 5TH GEN <6 <=10 ng/L POC GLUCOSE Result Value Ref Range POC GLUCOSE 180 (H) 74 - 99 mg/dL [employer]LINE [employer]SP[employer] PILOT NAME BLAKE Mike POC LACTIC ACID Result Value Ref Range POC LACTATE 1.8 0.5 - 2.2 mmol/L COMMENT, GASES POC RN/MD NOTIFIED SPECIMEN SOURCE, GASES BLNK [employer]SP[employer] PILOT NAME Lassiter Makenna POC GLUCOSE Result Value Ref Range POC GLUCOSE 162 (H) 74 - 99 mg/dL COMMENT, GLU POC Notified RN/MD [employer] PILOT NAME GENOVEVA MELENDEZ TROPONIN 6 HR, 5TH GEN Result Value Ref Range TROPONIN T, 6 HR 5TH GEN <6 <=10 ng/L Problem List: ?? Active Problems: ?? Hypothyroidism ?? Chylomicronemia syndrome ?? Hypertriglyceridemia ?? GERD (gastroesophageal reflux disease) ?? Mixed hyperlipidemia ?? Acquired hypothyroidism ?? Recurrent pancreatitis ?? Assessment and Plan: 1. Abdominal pain - pt with hx of recurrent pancreatitis with elevated TG however TG now much less than they have been in the past. Abd exam bland. Monitor for now, if pt with more vomiting or worsening pain consider CT abd. Cont bentyl. 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 Arteaga, pathology, is out until 02/04). 3. Pancreatic insufficiency - cont creon QID 4. GERD - cont PPI 5. HLD - Cont statin 6. DM - cont BID lantus with SSI 7. Insomnia - cont trazodone 8. Debility: none 9. DVT Prophylaxis: Enoxaparin Diet: DIET NPO Code Status: Full Code Disposition: Ms. Doss normally lives at home. I anticipate discharge to home in approximately 2-3days. Plan discussed with patient, questions answered; patient agrees with current plan. Discussed with ER physician, Abdiel. I have personally reviewed the ER documentation, [...] discussion of lab and test results. This H&P has been forwarded to this patient's Primary Care Physician if a PCP has been identified. Please call any time with questions. Araceli Santo MD Adult Hospitalist Physician 02/02/2019, 6:30 AM Pager: [phone] documented in this encounter Consult Notes * Nery Viramontes NP - 02/02/2019 12:55 PM CDTAssociated Order(s): IP CONSULT TO ENDOCRINOLOGY Images from the original note were not included. [facility] INPATIENT DIABETES CONSULT NOTE Name: Casandra Doss : 1975 Date: 02/03/2019 Room/Bed: [facility] Hospital Day: LOS: 1 day Reason for consult: Glycemic management HPI: Patient is a 43 yo female with PMH of diabetes mellitus, chylomicronemia syndrome, and GERD who presented to the ED with abdominal pain. Patient has a history of recurrent pancreatitis and presented to the ED because she felt like her triglycerides were elevated. Patient has been undergoing weekly apheresis for elevated triglycerides. Patient states her son was on Saturday and believes she overdid it - feels overly tired. Patient had one episode of vomiting prior to arrival to the ED, remains nauseated. In the ED, patient's WBC was 11.5, triglycerides 703; an insulin drip was started for a brief time; patient was transferred to the TCU for further evaluation and management. Regarding history of diabetes, patient takes basal/bolus insulin at home; Lantus 28/38 units BID; Novolog with meals, 12/10/- with meals. REVIEW OF SYSTEMS: Constitutional: denies fevers, chills, sweats, fatigue, malaise, anorexia, weight loss Respiratory: denies cough, dyspnea, hemoptysis, stridor, wheeze, chest pain Cardiovascular: denies chest pain or discomfort, exertional chest pressure/discomfort, fatigue, pounding heart/chest, nausea, syncope, shortness of breath Gastrointestinal: abdominal pain and nausea Genitourinary: denies dysuria, frequency, hematuria, hesitancy, nocturia, [...] polyuria, polydipsia, skin changes ASSESSMENT AND PLAN: Diabetes mellitus, with long-term insulin use Last a1c 7.7% NPO 15 units Lantus HS, Q4 ldssi POC BS Once diet is advanced will add prandial insulin. Abdominal pain History of recurrent pancreatitis with elevated triglycerides TG 703 this morning Plan for plasmapheresis tomorrow Chylomicronemia Weekly plasmapheresis Hypothyroidism Continue FINISH CARPENTER Levothyroxine Hyperlipidemia Continue Atorvastatin 80 mg Recommendations were discussed with Dr. Rudd, patient, hospitalist, and nursing staff. Please call or page with questions. Thank you for this consult. STELLA Bright CDTima 7A - 7P [phone] cell # 7P - 7A [phone] pager MEDICATIONS: Current Facility-Administered Medications Medication Dose Route Frequency Provider Last Rate Last Dose ??? calcium GLUCONATE 2,000 mg in sodium chloride 0.9% 120 mL IVPB 2,000 mg IV ONCE Nicole Mondragon MD ??? ondansetron (ZOFRAN) 4 mg/2 mL injection 4 mg 4 mg IV q 6 hour PRN Rodney Connelly, DO 4 mg at 02/03/19 1023 ??? LORazepam (ATIVAN) 2 mg/mL injection 1 mg 1 mg IV q 6 hour PRN Rodney Connelly, DO ??? HYDROcodone-acetaminophen (NORCO) 5-325 mg per tablet 1 Tablet 1 Tablet Oral q 4 hour PRN Araceli Santo MD 1 Tablet at 02/03/19 1023 ??? LORazepam (ATIVAN) tablet 1 mg 1 mg Oral BID PRN Araceli Santo MD 1 mg at 02/02/19 1156 ??? dicyclomine (BENTYL) capsule 10 mg 10 mg Oral QID Araceli Santo MD 10 mg at 02/03/19 1201 ??? niacin SR capsule 500 mg 500 mg Oral Daily BEDTIME Araceli Santo MD ??? fcwyho-btdeaxit-etjannc DR (CREON) 12,000-38,000-60,000 unit per capsule 2 Capsule 2 Capsule Oral QID Meals Araceli Santo MD 2 Capsule at 02/03/19 1201 ??? pantoprazole (PROTONIX) tablet 40 mg 40 mg Oral BID Araceli Santo MD 40 mg at 02/03/19 0857 ??? citalopram (CeleXA) tablet 40 mg 40 mg Oral Daily BEDTIME Araceli Santo MD 40 mg at 02/02/192009 ??? traZODone (DESYREL) tablet 100 mg 100 mg Oral Daily BEDTIME Araceli Santo MD 100 mg at 02/02/192009 ??? levothyroxine (SYNTHROID) tablet 200 mcg 200 mcg Oral Daily Araceli Santo MD 200 mcg at 02/03/19 0635 ??? naloxone (NARCAN) 0.4 mg/mL injection 0.1 mg 0.1 mg IV See Admin Notes Araceli Santo MD ??? sodium chloride 0.9% infusion IV Continuous Araceli Santo MD 125 mL/hr at 02/03/19 0634 ??? acetaminophen (TYLENOL) tablet 650 mg 650 mg Oral q 6 hour PRN Araceli Santo MD ??? enoxaparin (LOVENOX) injection 40 mg 40 mg subCUT q 24 hour Araceli Santo MD 40 mg at 02/03/19 1201 ??? HYDROmorphone (DILAUDID) 2 mg/mL injection 0.3 mg 0.3 mg IV q 3 hour PRN Laurie Casper MD 0.3 mg at 02/03/19 1201 ??? [COMPLETED] flu vaccine quadrivalent 2019- 6mos up(PF) (FLUARIX QUAD,FLULAVAL QUAD,FLUZONE QUAD) 60 mcg (15 mcg x 4)/0.5 mL syringe 60 mcg 0.5 mL IM ONCE Araceli Santo MD 60 mcg at 02/02/19 1537 ??? dextrose 5% - sodium chloride 0.9% infusion 40 mL/hr IV See Admin Notes Nery Viramontes L, MAGNETIC DOCTOR ??? dextrose 50% (D50) syringe 12.5 Gram 12.5 Gram IV See Admin Notes Jazmin Viramontesecca L, MAGNETIC DOCTOR ??? dextrose 50% (D50) syringe 25 Gram 25 Gram IV See Admin Notes Nery Viramontes L, MAGNETIC DOCTOR ??? glucagon HCl 1 mg injection 1 mg 1 mg IM See Admin Notes Nery Viramontes, MAGNETIC DOCTOR ??? insulin lispro (HumaLOG) variable dose injection subCUT q 4 hour Nery Viramontes, MAGNETIC DOCTOR ??? atorvastatin (LIPITOR) tablet 80 mg 80 mg Oral Daily BEDTIME Araceli Santo MD 80 mg at 02/02/192009 ??? insulin glargine (LANTUS) injection 15 Units 15 Units subCUT Daily BEDTIME Nery ViramontesMAGNETIC DOCTOR 15 Units at 02/02/192014 ??? [DISCONTINUED] rosuvastatin (CRESTOR) tablet 20 mg 20 mg Oral Daily BEDTIME Araceli Santo MD ??? [DISCONTINUED] insulin glargine (LANTUS) injection 20 Units 20 Units subCUT Daily Breakfast Araceli Santo MD ??? [DISCONTINUED] insulin glargine (LANTUS) injection 30 Units 30 Units subCUT Daily BEDTIME Araceli Santo MD ??? dextrose 5% - sodium chloride 0.9% infusion IV Continuous Rodney Connelly DO Stopped at 02/02/19 0415 ??? [DISCONTINUED] insulin regular (HUMULIN R,NOVOLIN R) 100 Units in sodium chloride 0.9% 99 mL infusion 3 Units/hr IV Continuous Rodney Connelly DO Stopped at 02/02/19426 ALLERGIES: Allergies Allergen Reactions ??? Green Pepper [...] partial due to endometriosis 2006 ??? HX TUNNELED VENOUS CATHETER PLACEMENT Right 09/29/2018 ??? [place] ESOPHAGOGASTRODUODENOSCOPY TRANSORAL DIAGNOSTIC N/A 03/08/2018 ESOPHAGOGASTRODUODENOSCOPY performed by Ceasar Vega MD at [facility] FAMILY HISTORY: Family History Problem [...] level: Not on file Occupational History Employer: [employer] Social Needs ??? Financial resource strain: Not [...] Gets together: Three times a week Attends amish service: Never Active member of club or organization: No Attends meetings of clubs or organizations: Never Relationship status: ??? Intimate partner violence: Fear of current or ex partner: No Emotionally abused: No Physically abused: No Forced sexual activity: No Other Topics Concern ??? Not on file Social History Narrative Merged History Encounter PHYSICAL EXAM: BP 109/71 (BP Location: Right arm, Patient Position (BP): Supine) Pulse 96 Temp 99.1 ??F (37.3 ??C) (Oral) Resp 13 Ht 5' 5 (1.651 m) Wt 85.6 kg (188 lb 12.8 oz) SpO2 96% ?No BMI 31.42 kg/m?? GEN: well-nourished, NAD HEENT: normocephalic, autramatic; sclera anicteric NECK: no lymphadenopathy present CV: RRR, no m/r/g; no LE edema, DP and PT pulsus present b/l RESP: CTAB ABD: s/nt/nd, no hepatomegaly present NEURO: A&O, nl gait SKIN: warm and dry, no lipohypertrophy present at the site of insulin injection FEET: nails without dystrophic changes, no calluses or other lesions present LABS: Recent Labs 02/01/19 2215 WBC 11.5* HGB 12.0 HCT 37.5 PLT 282 NA 139 K 4.5 CL 100 CO2 23 BUN 9 CREAT 0.58 GLUCOSE 242* ALT 11 AST 17 Previous Hemoglobin A1C Results: HEMOGLOBIN A1C Date Value Ref Range Status 06/29/2018 7.7 (H) <5.7 % Final 05/16/2018 8.0 (H) <5.7 % Final 03/08/2018 8.7 (H) <5.7 % Final POC Glucose Range: Lab Results Component Value Date/Time GLUCPOC 108 (H) 02/03/2019 11:59 AM GLUCPOC 122 (H) 02/03/2019 08:54 AM GLUCPOC 120 (H) 02/03/2019 07:58 AM GLUCPOC 116 (H) 02/03/2019 03:33 AM GLUCPOC 117 (H) 02/03/2019 12:18 AM GLUCPOC 144 (H) 02/02/2019 08:03 PM GLUCPOC 139 (H) 02/02/2019 03:43 PM GLUCPOC 142 (H) 02/02/2019 12:14 PM GLUCPOC 140 (H) 02/02/2019 06:37 AM GLUCPOC 162 (H) 02/02/2019 04:04 AM Associated attestation - Blake Rudd MD - 02/04/2019 9:06 PM CDT Discussed with MAGNETIC DOCTOR. Agree with documentation. documented in this encounter ED Notes * Ligia James RN - 02/02/2019 1:44 PM CDT Report to Yamil OLGUIN. All questions answered. * Ligia Jaems RN - 02/02/2019 12:04 PM CDT Pt medicated per JUN. Patient/family has been informed about benefits and any potential clinically significant side effects or other concerns regarding the administration of the drug they have just been given. * Ligia James RN - 02/02/2019 11:14 AM CDT Pt resting on bed. Pt appears to be resting comfortably on stretcher. Pt denies any new complaints at this time. Respirations are even and unlabored. Patient self repositioned and/or staff assisted with repositioning at this time. Call light within reach. NAD. Pt remains on CM, BP monitor and pulseox. * Ligia James RN - 02/02/2019 10:14 AM CDT Pt requesting pain medication. Pt not due for dose per JUN. Pt resting on bed. NAD. RR even and unlabored. * Ligia James RN - 02/02/2019 9:14 AM CDT Pt continues to c/o abdominal pain. Pt appears to be resting comfortably on stretcher. Pt denies any new complaints at this time. Respirations are even and unlabored. Patient self repositioned and/orstaff assisted with repositioning at this time. Call light within reach. NAD. Pt remains on CM, BP monitor, and pulse ox. * Ligia James RN - 02/02/2019 8:14 AM CDT Pt rates pain as 12/06. Pt given morphine per JUN. Patient/family has been informed about benefits and any potential clinically significant side effects or other concerns regarding the administration of the drug they have just been given. * Ligia James RN - 02/02/2019 7:12 AM CDT Report from CLAU Lima. Pt resting on bed. NAD. RR even and unlabored. Pt remains on CM, BP monitor, and pulse ox. Call light in reach. * Janie Stanton - 02/02/2019 6:38 AM CDT Pt blood sugar checked: 140. VSS. Call light within reach. Will continue to monitor. * Janie Stanton - 02/02/2019 6:35 AM CDT Patient/family has been informed about benefits and any potential clinically significant side effects or other concerns regarding the administration of the drug they have just been given. * Janie Stanton - 02/02/2019 5:07 AM CDT Pt SPO2 <92%. Pt placed on 2L oxygen via nasal cannula. * Janie Stanton - 02/02/2019 5:03 AM CDT Patient/family has been informed about benefits and any potential clinically significant side effects or other concerns regarding the administration of the drug they have just been given. * Genoveva Melendez RN - 02/02/2019 4:17 AM CDT Blood glucose rechecked: 162. 6 hour troponin drawn and sent to lab. Hospitalist at bedside for assessment. * Janie Stanton - 02/02/2019 3:38 AM CDT Pt moved to hospital bed. * Genoveva Melendez RN - 02/02/2019 2:02 AM CDT Blood glucose rechecked: 178. Per protocol, no change at this time. Insulin drip infusing 3units/hr. Pt resting on stretcher and updated on plan of care, awaiting room assignment. Even and unlabored respirations. Call light within reach. * Afua Joyce RN - 02/01/2019 10:21 PM CDT Blood work to lab. Pt placed on full air sampling and monitoring. PCT at bedside obtaining EKG and glucose. Pt medicated per JUN. Patient/family has been informed about benefits and any potential clinically significant side effects or other concerns regarding the administration of the drug they have just been given. * Afua Joyce RN - 02/01/2019 10:07 PM CDT To ED with upper abd pain, nausea, sob and generalized weakness starting yesterday. Reports symptoms r/t her hypertriglyceridemia. Reports gets symptoms when her 'levels go up'. Pt had therapeurtic apheresis last week and reports has been receiving prophylacticly since October. Pt arrives awake and alert, resp even/unlabored, skin pwd. PIV inserted, bloodwork obtained. MD at bedside for initial assessment at this time. * Rodney Connelly DO - 02/01/2019 9:45 PM CDT HISTORY OF PRESENT ILLNESS Casandra Doss, a 43 y.o. female presents to the ED with a Chief Complaint of Abdominal Pain Subjective Documented Triage Chief Complaint: Abdominal Pain 10:06 PM: Casandra Doss is a 43 y.o. female with a history of chylomicronemia syndrome (plasmaphresis weekly), pancreatitis, HLD, DM, tobacco use, who presents to the Emergency Department with upper abdominal pain that began today with headache, nausea, decreased appetite and malaise. No fever. Admits to tobacco use. EtOH yesterday. Plasmapheresis on 01/28 Physician(s): Guerrero Middleton PA-C History provided by: The patient and medical records Arrived by: Private vehicle Arrived from: Home Abdominal Pain Pain location: Generalized (upper) Pain severity: Moderate Onset quality: Gradual Timing: Constant Progression: Worsening Chronicity: Recurrent Context: alcohol use Associated symptoms: anorexia, fatigue and nausea Associated symptoms: no chest pain, no chills, no cough, no diarrhea, no dysuria, no fever, no hematuria, no shortness of breath, no sore throat and no vomiting REVIEW OF SYSTEMS Review of Systems Constitutional: Positive for appetite change and fatigue. Negative for chills and fever. HENT: Negative for congestion, ear pain, hearing loss, nosebleeds, sore throat and tinnitus. Eyes: Negative for photophobia, pain and visual disturbance. Respiratory: Negative for cough, chest tightness, shortness of breath and wheezing. Cardiovascular: Negative for chest pain, palpitations and leg swelling. Gastrointestinal: Positive for abdominal pain, anorexia and nausea. Negative for blood in stool, diarrhea and vomiting. Genitourinary: Negative for decreased urine volume, difficulty urinating, dysuria, flank pain and hematuria. Musculoskeletal: Negative for arthralgias, back pain, gait problem and myalgias. Skin: Negative for rash and wound. Neurological: Positive for headaches. Negative for dizziness, seizures, syncope, facial asymmetry and weakness. Psychiatric/Behavioral: Negative for agitation, behavioral problems, confusion, self-injury, sleep disturbance and suicidal ideas. All other systems reviewed and are negative. [...] appendectomy; pr esophagogastroduodenoscopy transoral diagnostic (N/A, 03/08/2018); and hx tunneled venous catheter placement (Right, 09/29/2018). FAMILY: Patient's family history includes Diabetes in [...] drugs. No history on file. Social History Patient does not qualify to have social determinant information on file (likely too young). Other Topics Concern ??? Not on file [...] MEDICATIONS Patient's Home Medications Current Home Medications TDGLYHZ-[id number]-[id number] DR MAGUIRE) 60-12-38 CAPSULE CITALOPRAM (CELEXA) 40 MG TABLET DICYCLOMINE (BENTYL) 10 MG CAPSULE FENOFIBRATE (LOFIBRA) 160 MG ORAL TAB HYDROCODONE-ACETAMINOPHEN (NORCO) 5-325 MG TABLET INSULIN ASPART (NOVOLOG) 100 UNIT/ML INJECTION INSULIN GLARGINE (LANTUS) 100 UNIT/ML INJECTION LEVOTHYROXINE 200 MCG TABLET LORAZEPAM (ATIVAN) 1 MG TABLET METFORMIN (GLUCOPHAGE) 500 MG TABLET NIACIN SR 500 MG CAPSULE OMEGA-3 FATTY ACIDS-FISH OIL 300-1,000 MG CAPSULE ONDANSETRON (ZOFRAN ODT) 4 MG TABLET, RAPID DISSOLVE PANTOPRAZOLE (PROTONIX) 40 MG TABLET, DELAYED RELEASE (E.C.) ROSUVASTATIN (CRESTOR) 20 MG TABLET SPIRONOLACTONE (ALDACTONE) 25 MG TABLET TRAZODONE (DESYREL) 100 MG TABLET Medications Modified during this Encounter Medications Discontinued during this Encounter Objective PHYSICAL EXAM INITIAL VS BP: (!) 142/78 (02/01/192145), Heart Rate: 91 bpm (02/01/192145), Resp: 20 (02/01/192145), Pulse: 91 (02/01/192145), Temp: 98.4 ??F (36.9 ??C) (02/01/192145), Temp src: Oral (02/01/192145), SpO2: 99 % (02/01/192145), Height: 5' 5 (165.1 cm) (02/01/192145), Weight: 90.7 kg (200 lb) (02/01/192145), BMI (Calculated): 33.28 (02/01/192145) No LMP recorded. Patient has had a hysterectomy. Physical Exam Vitals signs and nursing note reviewed. Constitutional: General: She is not in acute distress. Appearance: She is not diaphoretic. HENT: Head: Normocephalic and atraumatic. Nose: Nose normal. Eyes: General: Right eye: No discharge. Left eye: No discharge. Conjunctiva/sclera: Conjunctivae normal. Pupils: Pupils are equal, round, and reactive to light. Neck: Musculoskeletal: Normal range of motion and neck supple. Thyroid: No thyromegaly. Vascular: No JVD. Cardiovascular: Rate and Rhythm: Normal rate and regular rhythm. Heart sounds: Normal heart sounds. No murmur. No friction rub. No gallop. Pulmonary: Breath sounds: Normal breath sounds. No stridor. No wheezing or rales. Abdominal: General: Bowel sounds are normal. There is no distension. Palpations: Abdomen is soft. Tenderness: There is tenderness in the epigastric area. There is no rebound. Musculoskeletal: Normal range of motion. General: No tenderness. Skin: General: Skin is warm and dry. Coloration: Skin is not pale. Findings: No erythema or rash. Neurological: Mental Status: She is alert and oriented to person, place, and time. Cranial Nerves: No cranial nerve deficit. Coordination: Coordination normal. Psychiatric: Judgement: Judgment normal. DIAGNOSTICS LAB: CBC WITH DIFFERENTIAL - Abnormal Result Value WBC 11.5 (*) RBC 4.19 HEMOGLOBIN 12.0 HEMATOCRIT 37.5 MCV 89.5 MCH 28.6 MCHC 32.0 RDW 14.4 RDW-STDEV 47.1 PLATELETS 282 MPV 9.3 NEUTROPHILS 67 LYMPHOCYTES 26 MONOCYTES 6 EOSINOPHILS 1 BASOPHILS 0 IMMATURE GRANULOCYTES 1 NEUTROPHIL ABSOLUTE 7.64 (*) LYMPHOCYTE ABSOLUTE 2.94 MONOCYTE ABSOLUTE 0.68 EOSINOPHIL ABSOLUTE 0.13 BASOPHILS ABSOLUTE 0.05 IMMATURE GRANULOCYTES ABSOLUTE 0.06 (*) COMPREHENSIVE METABOLIC PANEL - Abnormal SODIUM 139 POTASSIUM 4.5 CHLORIDE 100 CO2 23 CALCIUM 9.0 BUN 9 CREATININE 0.58 GLUCOSE 242 (*) TOTAL PROTEIN 6.5 (*) ALBUMIN 4.5 BILIRUBIN TOTAL <0.2 (*) ALKALINE PHOSPHATASE 62 AST 17 ALT 11 GFR >60 GFR, >60 ANION GAP 16 LIPID PANEL - Abnormal CHOLESTEROL 162 TRIGLYCERIDE 703 (*) HDL 30 (*) LDL CALCULATED NON-HDL CHOLESTEROL 132 (*) POC GLUCOSE - Abnormal POC GLUCOSE 212 (*) COMMENT, GLU POC Notified RN/MD AIRLINE TRANSPORT PILOT NAME EDUARD OLMEDO POC GLUCOSE - Abnormal POC GLUCOSE 197 (*) AIRLINE TRANSPORT PILOT NAME AMBROCIO BROWN POC GLUCOSE - Abnormal POC GLUCOSE 180 (*) AIRLINE TRANSPORT PILOT NAME JulyBLAKE LIPASE - Normal LIPASE 52 TROPONIN BASELINE, 5TH GEN - Normal TROPONIN T, BASELINE 5TH GEN <6 TROPONIN 2 HR, 5TH GEN - Normal TROPONIN T, 2 HR 5TH GEN <6 KETONES/BETA HYDROXYBUTYRATE TROPONIN 6 HR, 5TH GEN POC LACTIC ACID POC LACTATE 1.8 COMMENT, GASES POC RN/MD NOTIFIED SPECIMEN SOURCE, GASES BLNK AIRLINE TRANSPORT PILOT NAME Makenna Lassiter POC GLUCOSE POC GLUCOSE POC LACTIC ACID POC GLUCOSE POC GLUCOSE POC GLUCOSE RADIOLOGY: No orders to display EKG: Sinus rhythm rate 78. Normal EKG. PROCEDURES Procedures MEDICAL DECISION MAKING AND PLAN OF CARE --On initial encounter, discussed plan for labs. Will give IV fluids, morphine, and zofran. 11:30 PM: Rechecked the patient. Discussed initial results. Plan for admission. Will start insulin drip and give ativan for reported anxiety. 11:40 PM: Discussed with Dr. Santo who accepts the patient for admission. 1:39 AM: Lactic acid is 1.8 2:01 AM: Updated Dr. Santo on status of the patient. Admitted to step-down. ED provider and ED nurse verbally discussed patient plan of care at this time. MDM I have reviewed previous: notes I have reviewed current: labs and ECG I have reviewed nursing notes related to past medical history, social history, and review of systems and agree, unless otherwise noted. Consults: hospitalist Medications Administered During the ED Stay from 02/01/20192144 to 02/02/2019205 Date/Time Order Dose Route Action 02/01/20192214 sodium chloride 0.9% bolus solution 1,000 mL 1,000 mL IV New Bag 02/01/20192214 morphine injection 4 mg 4 mg IV Given 02/01/2019 2215 ondansetron (ZOFRAN) 4 mg/2 mL injection 4 mg 4 mg IV Given 02/01/2019 2254 morphine injection 6 mg 6 mg IV Given 02/02/2019 0025 LORazepam (ATIVAN) 2 mg/mL injection 1 mg 1 mg IV Given 02/02/2019 0047 dextrose 5% - sodium chloride 0.9% infusion IV New Bag 02/02/2019 0112 insulin regular (HUMULIN R,NOVOLIN R) 100 Units in sodium chloride 0.9% 99 mL infusion 3 Units/hr IV New Bag . New Prescriptions for this Encounter LAST VS BP: 122/71 (02/02/19129), Heart Rate: 84 bpm (02/02/19129), Resp: 16 (02/02/19 0000), Pulse: 81(02/02/19129), Temp: 98.4 ??F (36.9 ??C) (02/01/192145), Temp src: Oral (02/01/192145), SpO2: 95 % (02/02/19129) CLINICAL IMPRESSION Final diagnoses: [R10.9] Abdominal pain, unspecified abdominal location (Primary) [E11.9, Z79.4] Type 2 diabetes mellitus without complication, with long-term current use of insulin [E78.3] Chylomicronemia syndrome [K85.90] Recurrent pancreatitis [Z92.89] History of plasmapheresis DISPOSITION, EDUCATION AND MEDICATION RECONCILIATION Medications reconciled. See after visit summary for patient education on discharged patients. ED Disposition ED Disposition Condition User Date/Time Comment Admit Stable Rodney Connelly DO Mon Feb 02, 2019 2:04 AM ATTESTATION STATEMENTS This note has been prepared by Jodie Rodrigues acting as a scribe for Dr. Ash Connelly on 02/02/2019 at 2:05 AM. The scribe's documentation has been prepared under my direction and personally reviewed by me, Rodney Connelly DO, in its entirety on 02/02/19 at 2:06 AM. I confirm that the note above accurately reflects all work, treatment, procedures, and medical decision making performed by me. documented in this encounter Miscellaneous Notes * Query - Stephanie Babin MD - 02/06/2019 1:26 AM CDT Please respond within 48 hours. Thank you! The authenticated query note is part of the Legal Health Record Patient Name: Casandra Doss Admission Date: 02/01/2019 [facility] #: [id number] Dear Doctor, In order to accurately reflect your patient's severity of illness and/or risk of mortality, symptoms should not be coded when the underlying cause is known. The symptom of Abdominal pain is documented in Discharge Summary. Clinical indicators and/or treatment for this patient include: Discharge Summary: Admitting Dx: Abdominal pain Discharge Diagnoses: Active Hospital Problems Diagnosis ??? Recurrent pancreatitis ??? Acquired hypothyroidism ??? Mixed hyperlipidemia ??? GERD (gastroesophageal reflux disease) ??? Hypertriglyceridemia ??? Chylomicronemia syndrome ??? Hypothyroidism Hospital Course: ?? 43 y/o female with chylomicronemia syndrome who gets weekly apheresis, DM, GERD admitted for above PROBLEM LIST: 1. Abdominal pain - pt with hx of recurrent pancreatitis with elevated TG however TG now much less than they have been in the past. Abd sanket loomis. Appears stable discussed with Dr. Mondragon - plan plasmapheresis 02/03 instead of tomorrow; can resume her normal schedule as outpatient; she is taking inpo without abdominal pain; 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 Arteaga, pathology, is out until 02/04). - see above 3. Pancreatic insufficiency - cont creon QID 4. GERD - cont PPI 5. HLD - Cont statin 6. DM - discussed with endocrine that she can go back on her home regiment. Patient to make sure she checks her sugars well. Consider 1/2 her dose til she is eating well. F/u with her endocrinologistas outpatient; discussed with patient 7. Insomnia - cont trazodone Note: To answer the following question(s), please click EDIT button on the activity bar then click F2 in front of the highlighted area(s). Question: Specify the suspected or determined cause of the patient's symptom(s) of Abdominal pain: Answer: (Specify) chronic pancreatitis Please continue to document the appropriate diagnosis for the clinical information above, in your Progress Notes, including through the Discharge Summary. Please keep the Problem List updated for continuity of care. (.[email or web address] or .[email or web address]) In responding to this query, please exercise your independent professional judgment. Please be advised that coding regulations for inpatient admissions allow the physician to document presumptive/probable diagnoses. The fact that a question is asked does not imply that any particular answer is desired or expected. Thank you, This query was initiated by Bailey Zhang. Query identified by independent chart review. For questions on this coding query please contact: Bibiana Hamlin at [email or web address]. * Care Plan - Yamil Bejarano RN - 02/03/2019 3:41 PM CDT End of Shift Note: Pt complains of abdominal pain and frequently requests dilaudid. Pt has been on RA to 2L and sleeping throughout shift. Plasma exchange was done today at bedside. Tolerating change from NPO to diabetic diet this afternoon. VSS. Patient Goals Not Met: Pathway Day 2 - Current (INTERDIS PW: HYPERGLYCEMIA, ADULT) Nutrition Management: Patient maintaining appropriate carbohydrate selections with each meal. Outcome: Not Met Variance PATIENT NPO documented in this encounter Plan of Treatment Upcoming Encounters Date Type Department Care Team (Late st Contact Info) Description 09/14/2024 3:00 PM CDT Office Visit [facility] - [place] [address] [place] [id number] Marlys Mayer MD [address] [place] [address] documented as of this encounter Procedures Procedure Name Priority Date/Time Associated Diagnosis Comments POC GLUCOSE Routine 02/04/2019 1:23 PM CDT POC GLUCOSE Routine 02/04/2019 10:21 AM CDT TRIGLYCERIDE Routine 02/04/2019 5:44 AM CDT POC GLUCOSE Routine 02/03/2019 8:37 PM CDT POC GLUCOSE Routine 02/03/2019 4:00 PM CDT POC GLUCOSE Routine 02/03/2019 11:59 AM CDT TRIGLYCERIDE Stat 02/03/2019 10:21 AM CDT Hypertriglyceride nirali POC GLUCOSE Routine 02/03/2019 8:54 AM CDT POC GLUCOSE Routine 02/03/2019 7:58 AM CDT TELEMETRY REPORT 02/03/2019 6:50 AM CDT POC GLUCOSE Routine 02/03/2019 3:33 AM CDT POC GLUCOSE Routine 02/03/2019 12:18 AM CDT POC GLUCOSE Routine 02/02/2019 8:03 PM CDT POC GLUCOSE Routine 02/02/2019 3:43 PM CDT POC GLUCOSE Stat 02/02/2019 12:14 PM CDT POC GLUCOSE Stat 02/02/2019 6:37 AM CDT TROPONIN 6 HR, 5TH GEN Timed Study 9 4:08 AM CDT POC GLUCOSE Stat 02/02/2019 4:04 AM CDT POC GLUCOSE Stat 02/02/2019 2:04 AM CDT POC LACTIC ACID Stat 02/02/2019 1:37 AM CDT POC GLUCOSE Stat 02/02/2019 12:59 AM CDT TROPONIN 2 HR, 5TH GEN Timed Study 9 12:18 AM CDT POC GLUCOSE Stat 02/02/2019 12:01 AM CDT EKG 12-LEAD Stat 02/01/2019 10:24 PM CDT POC GLUCOSE Stat 02/01/2019 10:20 PM CDT TROPONIN BASELINE, 5TH GEN Stat 02/01/2019 10:15 PM CDT CBC WITH DIFFERENTIAL Stat 02/01/2019 10:15 PM CDT KETONES/BETA HYDROXYBUTYRATE Stat 02/01/2019 10:15 PM CDT LIPASE Stat 02/01/2019 10:15 PM CDT LIPID PANEL Stat 02/01/2019 10:15 PM CDT COMPREHENSIVE METABOLIC PANEL Stat 02/01/2019 10:15 PM CDT documented in this encounter Results * (ABNORMAL) POC GLUCOSE (02/04/2019 1:23 PM CDT) GLUCOSE POC 168(H) 74 - 99 mg/dL 02/04/2019 1:23 PM CDT [facility] AIRLINE TRANSPORT PILOT NAME POC YAMIL BEJARANO 02/04/2019 1:23 PM CDT [facility] LABOR[facility] SERVICES [facility] Whole blood specimen (specimen) 02/04/2019 1:23 PM CDT 02/04/2019 1:40 PM CDT Stephanie Babin MD POINT OF CARE T ESTING [facility] CLNM# [id number] [address] [place] [address] * (ABNORMAL) POC GLUCOSE (02/04/2019 10:21 AM CDT) GLUCOSE POC 130(H) 74 - 99 mg/dL 02/04/2019 10:21 AM CDT [facility] AIRLINE TRANSPORT PILOT NAME POC ROSALVA BROWN 02/04/2019 10:21 AM CDT [facility] Whole blood specimen (specimen) 02/04/2019 10:21 AM CDT 02/04/2019 10:34 AM CDT Stephanie Babin MD POINT OF CARE T ESTING [facility]# [id number] [address] [place] [address] * (ABNORMAL) TRIGLYCERIDE (02/04/2019 5:44 AM CDT) TRIGLYCERIDE 377(H) <150 mg/dL 02/04/2019 6:44 AM CDT [facility] Blood Venipuncture / Unknown 02/04/2019 5:44 AM CDT 02/04/2019 5:52 AM CDT Narrative [facility] - 02/04/2019 6:44 AM CDT TRIGLYCERIDES ? mg/dL Normal ?< 150 Borderline High ?150 - 199 High ? 200 - 499 Very High ? >= 500 Based on AHA/NCEP Guidelines. Stephanie Babin MD CHEMISTRY ORDER OSVALDO Performing Organization Address [facility]/ZIP Co de Phone Number [facility]# [id number] [address] [place] [address] * (ABNORMAL) POC GLUCOSE (02/03/2019 8:37 PM CDT) GLUCOSE POC 167(H) 74 - 99 mg/dL 02/03/2019 8:37 PM CDT [facility] AIRLINE TRANSPORT PILOT NAME POC DEMETRA LASSITER 02/03/2019 8:37 PM CDT [facility] Whole blood specimen (specimen) 02/03/2019 8:37 PM CDT 02/03/2019 8:51 PM CDT Stephanie Babin MD POINT OF CARE T ESTING Performing Organization Address [facility]/ZIP Co de Phone Number [facility]# [id number] [address] [place] [address] * POC GLUCOSE (02/03/2019 4:00 PM CDT) GLUCOSE POC 93 74 - 99 mg/dL 02/03/2019 4:00 PM CDT [facility] AIRLINE TRANSPORT PILOT NAME POC YULIANA GAFFNEY 02/03/2019 4:00 PM CDT [facility] Whole blood specimen (specimen) 02/03/2019 4:00 PM CDT 02/03/2019 4:35 PM CDT Stephanie Babin MD POINT OF CARE T ESTING Performing Organization Address [facility]/State/ZIP Co de Phone Number [facility]# [id number] [address] [place] [address] * (ABNORMAL) POC GLUCOSE (02/03/2019 11:59 AM CDT) GLUCOSE POC 108(H) 74 - 99 mg/dL 02/03/2019 11:59 AM CDT [facility] AIRLINE TRANSPORT PILOT NAME OLLIE YULIANA GAFFNEY 02/03/2019 11:59 AM CDT [facility] Whole blood specimen (specimen) 02/03/2019 11:59 AM CDT 02/03/2019 12:19 PM CDT Stephanie Babin MD POINT OF CARE T ESTING [facility] [employer] [facility]# [id number] [address] [place] [address] * (ABNORMAL) TRIGLYCERIDE (02/03/2019 10:21 AM CDT) TRIGLYCERIDE 638(H) <150 mg/dL 02/03/2019 11:03 AM CDT [facility] [employer] [facility] Blood Venipuncture / Unknown 02/03/2019 10:21 AM CDT 02/03/2019 10:27 AM CDT Narrative [facility] - 02/03/2019 11:03 AM CDT TRIGLYCERIDES ? mg/dL Normal ?< 150 Borderline High ?150 - 199 High ? 200 - 499 Very High ? >= 500 Based on AHA/NCEP Guidelines. Nicole Rosas MD CHEMISTRY YONI SERRANO [facility]# [id number] [address] [place] [address] * (ABNORMAL) POC GLUCOSE (02/03/2019 8:54 AM CDT) GLUCOSE POC 122(H) 74 - 99 mg/dL 02/03/2019 8:54 AM CDT [facility] SERVICES [facility] AIRLINE TRANSPORT PILOT NAME POC YAMIL BEJARANO 02/03/2019 8:54 AM CDT [facility] SERVICES [facility] Whole blood specimen (specimen) 02/03/2019 8:54 AM CDT 02/03/2019 9:10 AM CDT Stephanie Babin MD POINT OF CARE T ESTING Performing Organization Address [facility]/ZIP Co de Phone Number [facility] [employer] [facility]# [id number] [address] [place] [address] * (ABNORMAL) POC GLUCOSE (02/03/2019 7:58 AM CDT) GLUCOSE POC 120(H) 74 - 99 mg/dL 02/03/2019 7:58 AM CDT [facility] AIRLINE TRANSPORT PILOT NAME POC YULIANA GAFFNEY 02/03/2019 7:58 AM CDT [facility] Whole blood specimen (specimen) 02/03/2019 7:58 AM CDT 02/03/2019 8:14 AM CDT Stephanie Babin MD POINT OF CARE T ESTING Performing Organization Address [facility]/ZIP Co de Phone Number [facility] [employer] [facility]# [id number] [address] [place] [address] * TELEMETRY REPORT (02/03/2019 6:50 AM CDT) Provider Scanning ECG ORDERABLES * (ABNORMAL) POC GLUCOSE (02/03/2019 3:33 AM CDT) GLUCOSE POC 116(H) 74 - 99 mg/dL 02/03/2019 3:33 AM CDT [facility] AIRLINE TRANSPORT PILOT NAME DEMETRA GIVENS 02/03/2019 3:33 AM CDT [facility] SERVICES [facility] Whole blood specimen (specimen) 02/03/2019 3:33 AM CDT 02/03/2019 3:48 AM CDT Laurie Casper MD POINT OF CARE TESTJERONIMO Serrano Performing Organization Address [facility] Co de Phone Number [facility] [employer] [facility]# [id number] [address] [place] [address] * (ABNORMAL) POC GLUCOSE (02/03/2019 12:18 AM CDT) GLUCOSE POC 117(H) 74 - 99 mg/dL 02/03/2019 12:18 AM CDT [facility] AIRLINE TRANSPORT PILOT NAME DEMETRA GIVENS 02/03/2019 12:18 AM CDT [facility] [employer] [facility] Whole blood specimen (specimen) 02/03/2019 12:18 AM CDT 02/03/2019 12:31 AM CDT Laurie Casper MD POINT OF CARE FLY Serrano [facility] [employer] [facility] CLNM# [id number] [address] [place] [address] * (ABNORMAL) POC GLUCOSE (02/02/2019 8:03 PM CDT) GLUCOSE POC 144(H) 74 - 99 mg/dL 02/02/2019 8:03 PM CDT [facility] AIRLINE TRANSPORT PILOT NAME DEMETRA GIVENS 02/02/2019 8:03 PM CDT [facility] LABORAT[facility] SERVICES [facility] Whole blood specimen (specimen) 02/02/2019 8:03 PM CDT 02/02/2019 8:17 PM CDT Laurie Casper MD POINT OF CARE TESTIN G [facility] LABORAT[facility] SERVICES [facility] CLIA# [id number] [address] [place] [address] * (ABNORMAL) POC GLUCOSE (02/02/2019 3:43 PM CDT) GLUCOSE POC 139(H) 74 - 99 mg/dL 02/02/2019 3:43 PM CDT [facility] SERVICES [facility] AIRLINE TRANSPORT PILOT NAME POC YAMIL BEJARANO 02/02/2019 3:43 PM CDT [facility] SERVICES [facility] Whole blood specimen (specimen) 02/02/2019 3:43 PM CDT 02/02/2019 3:59 PM CDT Laurie Casper MD POINT OF CARE TESTIN G [facility]OR[facility]ORY [facility] CLIA# [id number] [address] [place] [address] * (ABNORMAL) POC GLUCOSE (02/02/2019 12:14 PM CDT) GLUCOSE POC 142(H) 74 - 99 mg/dL 02/02/2019 12:14 PM CDT [facility] AIRLINE TRANSPORT PILOT NAME POC LIGIA JAMES 02/02/2019 12:14 PM CDT [facility] Whole blood specimen (specimen) 02/02/2019 12:14 PM CDT 02/02/2019 12:25 PM CDT Rodney Connelly DO POINT OF CARE TESTIN G [facility] SERVICES [facility] CLIA# [id number] [address] [place] [address] * (ABNORMAL) POC GLUCOSE (02/02/2019 6:37 AM CDT) GLUCOSE POC 140(H) 74 - 99 mg/dL 02/02/2019 6:37 AM CDT [facility] AIRLINE TRANSPORT PILOT NAME POC JANIE STANTON 02/02/2019 6:37 AM CDT [facility] Whole blood specimen (specimen) 02/02/2019 6:37 AM CDT 02/02/2019 6:50 AM CDT Rodney Connelly DO POINT OF CARE TESTIN G Performing Organization Address [facility]/ZIP Co de Phone Number [facility] CLIA# [id number] [address] [place] [address] * TROPONIN 6 HR, 5TH GEN (02/02/2019 4:08 AM CDT) [facility] TROPONIN T, 6 HR 5TH GEN <6 <=10 ng/L 02/02/2019 4:47 AM CDT [facility] Blood Venipuncture / Unknown 02/02/2019 4:08 AM CDT 02/02/2019 4:12 AM CDT Narrative [facility] - 02/02/2019 4:47 AM CDT Troponin Undetectable Unable to calculate delta. Rodney Connelly DO CHEMISTRY ORDERABLES Performing Organization Address [facility]/ZIP Co de Phone Number [facility] CLIA# [id number] [address] [place] [address] * (ABNORMAL) POC GLUCOSE (02/02/2019 4:04 AM CDT) GLUCOSE POC 162(H) 74 - 99 mg/dL 02/02/2019 4:04 AM CDT [facility] COMMENT, GLU POC Notified RN/MD 02/02/2019 4:04 AM CDT [facility]AT[facility] AIRLINE TRANSPORT PILOT NAME GENOVEVA AGUILAR 02/02/2019 4:04 AM CDT [facility] Whole blood specimen (specimen) 02/02/2019 4:04 AM CDT 02/02/2019 4:22 AM CDT Rodney Connelly DO POINT OF CARE TESTIN Maggie Performing Organization Address [facility] de Phone Number [facility] CLIA# [id number] [address] [place] [address] * (ABNORMAL) POC GLUCOSE (02/02/2019 2:04 AM CDT) GLUCOSE POC 178(H) 74 - 99 mg/dL 02/02/2019 2:04 AM CDT [facility] COMMENT, GLU POC Notified CLAU/ 02/02/2019 2:04 AM CDT [facility] AIRLINE TRANSPORT PILOT NAME GENOVEVA AGIULAR 02/02/2019 2:04 AM CDT [facility] Whole blood specimen (specimen) 02/02/2019 2:04 AM CDT 02/02/2019 9:54 AM CDT Rodney Connelly DO POINT OF CARE TESTIN Maggie Performing Organization Address [facility] Phone Number [facility]# [id number] [address] [place] [address] [address] [address] * POC LACTIC ACID (02/02/2019 1:37 AM CDT) LACTIC ACID POC 1.8 0.5 - 2.2 mmol/L 02/02/2019 1:37 AM CDT [facility] COMMENT, GASES POC CLAU/ NOTIFIED 02/02/2019 1:37 AM CDT [facility] SPECIMEN SOURCE, GASES POC BLNK 02/02/2019 1:37 AM CDT [facility] AIRLINE TRANSPORT PILOT NAME POC Makenna Lassiter 02/02/2019 1:37 AM CDT [facility] Blood 02/02/2019 1:37 AM CDT 02/02/2019 1:38 AM CDT Rodney Connelly DO POINT OF CARE TESTIN G Performing Organization Address City/[facility] Co de Phone Number [facility] [employer] [facility] CLIA# [id number] [address] [place] [address] * (ABNORMAL) POC GLUCOSE (02/02/2019 12:59 AM CDT) GLUCOSE POC 180(H) 74 - 99 mg/dL 02/02/2019 12:59 AM CDT [facility]AT[facility] AIRLINE TRANSPORT PILOT NAME POC BLAKE Mike 02/02/2019 12:59 AM CDT [facility] Whole blood specimen (specimen) 02/02/2019 12:59 AM CDT 02/02/2019 1:27 AM CDT Rodney Connelly DO POINT OF CARE TESTIN G Performing Organization Address [facility] Co de Phone Number [facility] [employer] [facility] CLIA# [id number] [address] [place] [address] * TROPONIN 2 HR, 5TH GEN (02/02/2019 12:18 AM CDT) TROPONIN T, 2 HR 5TH GEN <6 <=10 ng/L 02/02/2019 12:56 AM CDT [facility]ORAT[facility] Blood Venipuncture / Unknown 02/02/2019 12:18 AM CDT 02/02/2019 12:30 AM CDT [facility]ative [facility] - 02/02/2019 12:56 AM CDT Troponin Undetectable Unable to calculate delta. Rodney Connelly DO CHEMISTRY ORDERABLES Performing Organization Address City/State/[facility] Co de Phone Number [facility]# [id number] [address] [place] [address] * (ABNORMAL) POC GLUCOSE (02/02/2019 12:01 AM CDT) GLUCOSE POC 197(H) 74 - 99 mg/dL 02/02/2019 12:01 AM CDT [facility] AIRLINE TRANSPORT PILOT NAME POC BROWN AMBROCIO 02/02/2019 12:01 AM CDT [facility] Whole blood specimen (specimen) 02/02/2019 12:01 AM CDT 02/02/2019 12:12 AM CDT Rodney Connelly DO POINT OF CARE TESTIN G Performing Organization Address [facility] Co de Phone Number [facility]# [id number] [address] [place] [address] * EKG 12-LEAD (02/01/2019 10:24 PM CDT) 02/01/2019 10:2 4 PM CDT Narrative INTERFACE SYSTEM - 02/02/2019 8:00 AM CDT ? Stationary ECG Study ? [facility] ? Test Date: ?02/01/2019 10:24 PM Pat Name: ? CASANDRA CRAFTOCTAVIO ?Department: ?? 38 ?Room: ? 13 Gender: ? F ?Biology Specimen Technician: ?? [email or web address] : ?[email or web address] ? Requested By: RODNEY CONNELLY Order Number: [id number] ?Reading : ?? Malcom Blackburn ? Measurements Intervals ?[place] ? Rate: ? 78 ? P: ?55 MN: ? 155 ?QRS: ?63 QRSD: ? 87 ? T: ?-4 QT: ? 378 ? QTc: ?431 ? Interpretive Statements ? Sinus rhythm Borderline T abnormalities, inferior leads Electronically Signed On 02-02-2019 8:00:17 CDT by Malcom Blackburn Procedure Note Malcom Blackburn MD - 06/14/2021 Stationary ECG Study [facility] Test Date: 02/01/2019 10:24 PM Pat Name: CASANDRA DOSS Department: 38 Room: 13 Gender: F Biology Specimen Technician: uday : [id number] Requested By: RODNEY CONNELLY Order Number: [id number] Reading MD: Malcom Blackburn Measurements Intervals [place] Rate: 78 P: 55 MN: 155 QRS: 63 QRSD: 87 T: -4 QT: 378 QTc: 431 Interpretive Statements Sinus rhythm Borderline T abnormalities, inferior leads Electronically Signed On 02-02-2019 8:00:17 CDT by Malcom Blackburn Rodney Connelly DO ECG ORDERABLES INTERFACE SYSTEM Refer to clinic/hospital department * (ABNORMAL) POC GLUCOSE (02/01/2019 10:20 PM CDT) GLUCOSE POC 212(H) 74 - 99 mg/dL 02/01/2019 10:20 PM CDT [facility] COMMENT, GLU POC Notified RN/MD 02/01/2019 10:20 PM CDT [facility] AIRLINE TRANSPORT PILOT NAME POC EDUARD OLMEDO 02/01/2019 10:20 PM CDT [facility] Whole blood specimen (specimen) 02/01/2019 10:20 PM CDT 02/01/2019 10:38 PM CDT Rodney Connelly DO POINT OF CARE TESTIN G Performing Organization Address [facility]/ZIP Co de Phone Number [facility] CLIA# [id number] [address] [place] [address] * (ABNORMAL) LIPID PANEL (02/01/2019 10:15 PM CDT) CHOLESTEROL 162 <200 mg/dL 02/01/2019 11:41 PM CDT [facility] LAB[facility]AT[facility] TRIGLYCERIDE 703(H) <150 mg/dL 02/01/2019 11:41 PM CDT [facility] HDL 30(L) 40 - 59 mg/dL 02/01/2019 11:41 PM CDT [facility] LDL CALCULATED 02/01/2019 11:41 PM T [facility] Comment:Calculated LDL is no t accurate when the Triglyceride value exceeds 400. NON-HDL CHOLESTEROL 132(H) <130 mg/dL 02/01/2019 11:41 PM CDT [facility] Blood Venipuncture / Unknown 02/01/2019 10:15 PM CDT 02/01/2019 10:25 PM CDT Narrative [facility] - 02/01/2019 11:41 PM CDT TOTAL CHOLESTEROL ??mg/dL ??Desirable <200 ??Borderline high 200-239 ??High >=240 TRIGLYCERIDES ??mg/dL ??Normal <150 ??Borderline high 150-199 ??High 200-499 ??Very high >=500 HDL CHOLESTEROL ??mg/dL ??Low <40 ??Normal 40-59 ??Desirable >=60 NON HDL CHOLESTEROL mg/dL ??Optimal <130 ??Near Optimal 130-159 ??Borderline High 160-189 ??Very High >=190 Calculated LDL mg/dL ??Optimal <100 ??Near Optimal 100-129 ??Borderline High 130-159 ??High 160-189 ??Very High >=190 ATPIII Guidelines Reference Ranges for Lipid Panels (NCEP/AMA) Rodney Connelly DO CHEMISTRY ORDERABLES [facility] CLIA# [id number] [address] [facility] [place] [place] [address] * TROPONIN BASELINE, 5TH GEN (02/01/2019 10:15 PM CDT) TROPONIN T, BASELINE 5TH GEN <6 <=10 ng/L 02/01/2019 11:41 PM CDT [facility] Blood Venipuncture / Unknown 02/01/2019 10:15 PM CDT 02/01/2019 10:25 PM CDT Narrative [facility] [employer] [facility] - 02/01/2019 11:41 PM CDT Troponin Undetectable Rodney Connelly DO CHEMISTRY ORDERABLES [facility] [employer] [facility] CLIA# [id number] [address] [place] [address] * KETONES/BETA HYDROXYBUTYRATE (02/01/2019 10:15 PM CDT) BETA HYDROXYBUTYRATE 0.2 <0.4 mmol/L 02/02/2019 2:34 AM CDT [facility] [employer] [facility] Blood Venipuncture / Unknown 02/01/2019 10:15 PM CDT 02/01/2019 10:25 PM CDT Rodney Connelly DO CHEMISTRY ORDERABLES Performing Organization Address City/[facility]/ZIP Co de Phone Number [facility] [employer] [facility] CLIA# [id number] [address] [place] [address] * LIPASE (02/01/2019 10:15 PM CDT) LIPASE 52 13 - 60 U/L 02/01/2019 11:41 PM CDT [facility] [employer] [facility] Blood Venipuncture / Unknown 02/01/2019 10:15 PM CDT 02/01/2019 10:25 PM CDT Rodney Connelly DO CHEMISTRY ORDERABLES [facility] [employer] [facility] CLIA# [id number] [address] [place] [address] * (ABNORMAL) COMPREHENSIVE METABOLIC PANEL (02/01/2019 10:15 PM CDT) SODIUM 139 136 - 145 mmol/L 02/01/2019 11:41 PM CDT [facility] POTASSIUM 4.5 3.5 - 5.0 mmol/L 02/01/2019 11:41 PM [facility]ATORY SERVICES [facility] CHLORIDE 100 98 - 107 mmol/L 02/01/2019 11:41 PM [facility]ATORY SERVICES [facility] CO2 23 22 - 29 mmol/L 02/01/2019 11:41 PM [facility] LABORATORY [facility] CALCIUM 9.0 8.6 - 10.2 mg/dL 02/01/2019 11:41 PM [facility]ATORY SERVICES [facility] BUN 9 6 - 20 mg/dL 02/01/2019 11:41 PM [facility]ATORY SERVICES - [facility] CREATININE 0.58 0.51 - 0.95 mg/dL 02/01/2019 11:41 PM [facility] SERVICES - [facility] GLUCOSE 242(H) 74 - 99 mg/dL 02/01/2019 11:41 PM [facility] LABORATORY [facility] TOTAL PROTEIN 6.5(L) 6.7 - 8.6 g/dL 02/01/2019 11:41 PM [facility] LABORATORY [facility] . [facility] ALBUMIN 4.5 3.5 - 5.2 g/dL 02/01/2019 11:41 PM [facility] LABORATORY [facility] BILIRUBIN TOTAL <0.2(L) 0.3 - 1.2 mg/dL 02/01/2019 11:41 PM [facility] LABORATORY [facility] ALKALINE PHOSPHATASE 62 35 - 104 U/L 02/01/2019 11:41 PM [facility] LABORATORY [facility] AST 17 <33 U/L 02/01/2019 11:41 PM [facility] LABORATORY SERVICES - [facility] Comment:Hemolysis present. R esult may be falsely elevated. ALT 11 <34 U/L 02/01/2019 11:41 PM [facility] LABORATORY [facility] GFR >60 >=60 mL/min/1.7 3 sq meter 02/01/2019 11:41 PM [facility] LABORATORY [facility] Comment: eGFR has not been validated [...] GFR, >60 >=60 mL/min/1.7 3 sq meter 02/01/2019 11:41 PM CDT [facility] LABORATORY [facility] ANION GAP 16 8 - 16 mmol/L 02/01/2019 11:41 PM CDT [facility] LAB[facility]ATORY SERVICES [facility] Blood Venipuncture / Unknown 02/01/2019 10:15 PM CDT 02/01/2019 10:25 PM CDT [facility] LABORATORY SERVICES [facility] - 02/01/2019 11:41 PM CDT Samples containing indocyanine green cause interferences on Total and/or Direct Bilirubin and must not be measured. Rodney Connelly DO CHEMISTRY ORDERABLES [facility] LABORATORY SERVICES [facility]# [id number] [address] [facility] [place] [id number] * (ABNORMAL) CBC WITH DIFFERENTIAL (02/01/2019 10:15 PM CDT) WBC 11.5(H) 4.0 - 9.8 K/uL 02/01/2019 10:45 PM CDT [facility]AT[facility] SERVICES [facility] RBC 4.19 3.90 - 4.90 M/uL 02/01/2019 10:45 PM CDT [facility] LAB[facility]ATORY SERVICES - [facility] HEMOGLOBIN 12.0 11.8 - 14.8 g/dL 02/01/2019 10:45 PM CDT [facility] LABORATORY SERVICES [facility] HEMATOCRIT 37.5 35.5 - 44.0 % 02/01/2019 10:45 PM CDT [facility] LABORATORY SERVICES - [facility] MCV 89.5 82.0 - 99.0 fL 02/01/2019 10:45 PM CDT [facility] LABORATORY SERVICES [facility] MCH 28.6 27.2 - 32.6 pg 02/01/2019 10:45 PM CDT [facility] LABORATORY SERVICES - . [facility] MCHC 32.0 31.5 - 35.5 g/dL 02/01/2019 10:45 PM CDT [facility]ATORY [facility] RDW 14.4 11.5 - 14.5 % 02/01/2019 10:45 PM CDT [facility]ATORY [facility] - . [facility] RDW-STDEV 47.1 37.1 - 48.7 fL 02/01/2019 10:45 PM CDT [facility]ATORY SERVICES - . [facility] PLATELETS 282 140 - 350 K/uL 02/01/2019 10:45 PM CDT [facility]ATORY SERVICES - . [facility] MPV 9.3 9.3 - 12.4 fL 02/01/2019 10:45 PM [employer] [facility]ATORY [facility] - [facility] NEUTROPHILS 67 % 02/01/2019 10:45 PM [employer] [facility]ATORY [facility] - [facility] LYMPHOCYTES 26 % 02/01/2019 10:45 PM [facility] LABORATORY SERVICES - . [facility] MONOCYTES 6 % 02/01/2019 10:45 PM [employer] [facility]ATORY [facility] - [facility] EOSINOPHILS 1 % 02/01/2019 10:45 PM [employer] [facility]ATORY SERVICES - [facility] BASOPHILS 0 % 02/01/2019 10:45 PM [facility] LABORATORY SERVICES - . [facility] IMMATURE GRANULOCYTES 1 % 02/01/2019 10:45 PM [employer] [facility]ATORY SERVICES - . [facility] Comment:IG (Immature Granulo cyte) count includes Metamyelocytes, Myelocytes, and Promyelocytes NEUTROPHIL ABSOLUTE 7.64(H) 1.90 - 7.00 K/uL 02/01/2019 10:45 PM [employer] [facility]ATORY SERVICES - [facility] LYMPHOCYTE ABSOLUTE 2.94 0.70 - 4.50 K/uL 02/01/2019 10:45 PM [employer] [facility]ATORY [facility] MONOCYTE ABSOLUTE 0.68 0.10 - 1.30 K/uL 02/01/2019 10:45 PM CDT [facility] LABORATORY SERVICES [facility] EOSINOPHIL ABSOLUTE 0.13 0.00 - 0.70 K/uL 02/01/2019 10:45 PM [employer] LABORATORY SERVICES [facility] BASOPHILS ABSOLUTE 0.05 0.00 - 0.20 K/uL 02/01/2019 10:45 PM CDT [facility] LABORATORY SERVICES - . [facility] IMMATURE GRANULOCYTES ABSOLUTE 0.06(H) 0.00 - 0.03 K/uL 02/01/2019 10:45 PM CDT [facility] LABORATORY SERVICES - [facility] Blood Venipuncture / Unknown 02/01/2019 10:15 PM CDT 02/01/2019 10:25 PM CDT Rodney Patelleoratima DO HEMATOLOGY ORDERABLE S [facility] LABORATORY SERVICES [facility] CLIA# [id number] [address] [facility] [address] [address] [place], [place] [address] documented in this encounter Visit Diagnoses Diagnosis Abdominal pain, unspecified abdominal location- Primary Type 2 diabetes mellitus without complication, with long-term current use of insulin Chylomicronemia syndrome Hyperchylomicronemia Recurrent pancreatitis Chronic pancreatitis History of plasmapheresis Hypertriglyceridemia Pure hyperglyceridemia Generalized abdominal pain Abdominal pain, generalized Recurrent pancreatitis Chronic pancreatitis Mixed hyperlipidemia Hypothyroidism Unspecified hypothyroidism Hypertriglyceridemia Pure hyperglyceridemia GERD (gastroesophageal reflux disease) Esophageal reflux Chylomicronemia syndrome Hyperchylomicronemia Acquired hypothyroidism Unspecified hypothyroidism documented in this encounter Administered Medications Inactive Administered Medications - up to 3 most recent administrations Medication Order MAR Action Action Date Dose Rate Site atorvastatin (LIPITOR) tablet 80 mg 80 mg, Oral, DAILY AT BEDTIME, First dose on Sat02/02/19 at 2100, Until Discontinued, Routine Given 02/03/2019 8:41 PM CDT 80 mg Given 02/02/2019 8:10 PM CDT 80 mg calcium GLUCONATE 2,000 mg in sodium chloride 0.9% 120 mL IVPB 2,000 mg, IV, ONE TIME ONLY, 1 dose, On Sat02/03/19 at 1400, Routine Rate Change 02/03/2019 4:11 PM CDT 20 mL/hr Rate Change 02/03/2019 4:00 PM CDT 125.5 mL/hr Rate Change 02/03/2019 3:42 PM CDT 146.7 mL/hr citalopram (CeleXA) tablet 40 mg 40 mg, Oral, DAILY AT BEDTIME, First dose on Sat02/02/19 at 2100, Until Discontinued, Routine Given 02/03/2019 8:41 PM CDT 40 mg Given 02/02/2019 8:10 PM CDT 40 mg dextrose 5% - sodium chloride 0.9% infusion IV, at 150 mL/hr, CONTINUOUS, Starting on Sat02/01/19 at 2345, Until Sat02/04/19 at 1808, Routine Restarted 02/02/2019 4:15 AM CDT 150 mL /hr Restarted 02/02/2019 4:15 AM CDT 150 mL/hr Restarted 02/02/2019 4:14 AM CDT 150 mL/hr dextrose 5% - sodium chloride 0.9% infusion IV, at 40 mL/hr, SEE ADMIN INSTRUCTIONS, Starting on Sat02/02/19 at 1419, Until Sat02/04/19 at 1808, Routine dextrose 50% (D50) syringe 12.5 Gram 12.5 Gram, IV, SEE ADMIN INSTRUCTIONS, Starting on Sat02/02/19 at 1419, Until Sat02/04/19 at 1808, Routine dextrose 50% (D50) syringe 25 Gram 25 Gram, IV, SEE ADMIN INSTRUCTIONS, Starting on Sat02/02/19 at 1419, Until Sat02/04/19 at 1808, Routine dicyclomine (BENTYL) capsule 10 mg 10 mg, Oral, FOUR TIMES DAILY, First dose on Sat02/02/19 at 0900, Until Discontinued, Routine Given 02/04/2019 1:05 PM CDT 10 mg Given 02/04/2019 9:12 AM CDT 10 mg Given 02/03/2019 8:41 PM CDT 10 mg enoxaparin (LOVENOX) injection 40 mg 40 mg, subCUT, EVERY 24 HOURS, First dose on Sat02/02/19 at 1230, Until Discontinued, Routine, Indication: Prophylaxis of VTE, Dose to be adjusted per facility protocol? Yes Given 02/04/2019 1:06 PM CDT 40 mg Abdom inal Tissue Given 02/03/2019 12:01 PM CDT 40 mg A bdominal Tissue Given 02/02/2019 2:30 PM CDT 40 mg Ab dominal Tissue flu vaccine quadrivalent 6mos up(PF) (FLUARIX QUAD,FLULAVAL QUAD,FLUZONE QUAD) 60 mcg (15 mcg x 4)/0.5 mL syringe 60 mcg 60 mcg (0.5 mL), IM, ONE TIME ONLY, 1 dose, On Sat02/02/19 at 1600, Routine Given 02/02/2019 3:37 PM CDT 60 mcg Arm, Left Upper glucagon HCl 1 mg injection 1 mg 1 mg, IM, SEE ADMIN INSTRUCTIONS, Starting on Sat02/02/19 at 1419, Until Sat02/04/19 at 1808, Routine heparin injection 2,000 Units 2,000 Units, IV, ONE TIME ONLY, 1 dose, On Sat02/03/19 at 1400, Stat, PLEASE TUBE TO STATION 516. Given 02/03/2019 4:18 PM CDT 2,000 Units heparin injection 2,000 Units 2,000 Units, IV, ONE TIME ONLY, 1 dose, On Sat02/03/19 at 1400, Stat, PLEASE TUBE TO STATION 516. Given 02/03/2019 4:17 PM CDT 2,000 Units HYDROcodone-acetaminophen (NORCO) 5-325 mg per tablet 1 Tablet 1 Tablet, Oral, EVERY 4 HOURS PRN, Starting on Sat02/02/19 at 0425, Until Sat02/04/19 at 1808, Pain (See admin instructions), Routine Given 02/04/2019 9:12 AM CDT 1 Tablet Given 02/03/2019 8:42 PM CDT 1 Tablet Given 02/03/2019 10:23 AM CDT 1 Tablet HYDROcodone-acetaminophen (NORCO) 5-325 mg per tablet 1 Tablet 1 Tablet, Oral, EVERY 6 HOURS PRN, Starting on Sat02/02/19 at 0616, Until Sat02/02/19 at 1242, Pain, Severe, Routine, Previous Med: HYDROcodone-acetaminophen (NORCO) 5-325 mg tablet - Orig Sig - Take 1 Tablet by mouth every 6 hours as needed for Pain, Severe. Max Daily Amount: 4 Tablets Given 02/02/2019 6:34 AM CDT 1 Tablet HYDROmorphone (DILAUDID) 2 mg/mL injection 0.3 mg 0.3 mg, IV, ONE TIME ONLY, 1 dose, On Sat02/02/19 at 0430, Routine Given 02/02/2019 4:58 AM CDT 0.3 mg HYDROmorphone (DILAUDID) 2 mg/mL injection 0.3 mg 0.3 mg, IV, EVERY 3 HOURS PRN, Starting on Sat02/02/19 at 1239, Until Sat02/04/19 at 1808, Pain (See admin instructions), Routine Given 02/04/2019 1:07 PM CDT 0.3 mg Given 02/04/2019 6:15 AM CDT 0.3 mg Given 02/03/2019 9:55 PM CDT 0.3 mg insulin glargine (LANTUS) injection 15 Units 15 Units, subCUT, DAILY AT BEDTIME, First dose on Sat02/02/19 at 2100, Until Discontinued, Routine Given 02/03/2019 8:43 PM CDT 15 Units Arm, Right Upper Given 02/02/2019 8:15 PM CDT 15 Units Ar m, Right Upper insulin lispro (HumaLOG) injection 3 Units 3 Units, subCUT, THREE TIMES DAILY WITH MEALS, First dose (after last modification) on Sat02/04/19 at 0700, Until Discontinued, Routine Given 02/04/2019 1:27 PM CDT 3 Units Arm, Right Upper Given 02/04/2019 10:23 AM CDT 3 Units A bdominal Tissue insulin lispro (HumaLOG) variable dose injection subCUT, THREE TIMES DAILY WITH MEALS, First dose on Sat02/03/19 at 1800, Until Discontinued, Routine insulin lispro (HumaLOG) variable dose injection subCUT, DAILY AT BEDTIME, First dose on Sat02/03/19 at 2100, Until Discontinued, Routine insulin regular (HUMULIN R,NOVOLIN R) 100 Units in sodium chloride 0.9% 99 mL infusion 3 Units/hr (3 mL/hr), IV, CONTINUOUS, Starting on Sat02/01/19 at 2345, Until Sat02/02/19 at 1418 New Bag 02/02/2019 1:12 AM CDT 3 Units/hr 3 mL/hr levothyroxine (SYNTHROID) tablet 200 mcg 200 mcg, Oral, DAILY, First dose on Sat02/02/19 at 1200, Until Discontinued, Routine, Previous Med: levothyroxine 200 mcg tablet - Orig Sig - Take 1 Tablet by mouth daily without food in the morning 30 minutes before eating anything. Given 02/04/2019 5:45 AM CDT 200 mcg Given 02/03/2019 6:35 AM CDT 200 mcg Given 02/02/2019 5:37 PM CDT 200 mcg [id number] DR MAGUIRE) 12,000-38,000-60,000 unit per capsule 2 Capsule 2 Capsule, Oral, FOUR TIMES DAILY WITH MEALS AND AT BEDTIME, First dose on Sat02/02/19 at 0700, Until Discontinued, Routine Given 02/04/2019 1:06 PM CDT 2 Capsules Given 02/04/2019 9:12 AM CDT 2 Capsules Given 02/03/2019 5:35 PM CDT 2 Capsules LORazepam (ATIVAN) 2 mg/mL injection 1 mg 1 mg, IV, ONE TIME ONLY, 1 dose, On Sat02/01/19 at 2345, Routine Given 02/02/2019 12:25 AM CDT 1 mg LORazepam (ATIVAN) tablet 1 mg 1 mg, Oral, TWO TIMES DAILY PRN, Starting on Sat02/02/19 at 0615, Until Sat02/04/19 at 1808, Anxiety, Routine, Previous Med: LORazepam (ATIVAN) 1 mg tablet - Orig Sig - Take 1 mg by mouth 2 times daily as needed for Anxiety . Given 02/02/2019 11:56 AM CDT 1 mg morphine 4 mg/mL injection 4 mg 4 mg, IV, EVERY 4 HOURS PRN, Starting on Sat02/02/19 at 0627, Until Sat02/02/19 at 1242, Pain (See admin instructions), Routine Given 02/02/2019 11:56 AM CDT 4 mg morphine injection 4 mg 4 mg, IV, ONE TIME ONLY, 1 dose, On 02/01/19 at 2215, Routine Given 02/01/2019 10:15 PM CDT 4 mg morphine injection 5 mg 5 mg, IV, ONE TIME ONLY, 1 dose, On Sat02/02/19 at 0630, Routine Given 02/02/2019 8:09 AM CDT 5 mg morphine injection 6 mg 6 mg, IV, ONE TIME ONLY, 1 dose, On Sat02/01/19 at 2300, Routine Given 02/01/2019 10:54 PM CDT 6 mg morphine injection 6 mg 6 mg, IV, ONE TIME ONLY, 1 dose, On Sat02/02/19 at 0300, Routine Given 02/02/2019 3:00 AM CDT 6 mg ondansetron (ZOFRAN) 4 mg/2 mL injection 4 mg 4 mg, IV, ONE TIME ONLY, 1 dose, On Sat02/01/19 at 2215, Routine Given 02/01/2019 10:15 PM CDT 4 mg ondansetron (ZOFRAN) 4 mg/2 mL injection 4 mg 4 mg, IV, EVERY 6 HOURS PRN, Starting on Sat02/02/19 at 0628, Until Sat02/04/19 at 1808, Nausea/Emesis, Routine Given 02/03/2019 10:00 PM CDT 4 mg Given 02/03/2019 10:23 AM CDT 4 mg Given 02/02/2019 8:12 PM CDT 4 mg ondansetron (ZOFRAN) 4 mg/2 mL injection 4 mg 4 mg, IV, ONE TIME ONLY, 1 dose, On Sat02/02/19 at 0515, Stat Given 02/02/2019 5:18 AM CDT 4 mg pantoprazole (PROTONIX) tablet 40 mg 40 mg, Oral, TWO TIMES DAILY, First dose on Sat02/02/19 at 0900, Until Discontinued, Routine, Previous Med: pantoprazole (PROTONIX) 40 mg Tablet, Delayed Release (E.C.) - Orig Sig - Take 40 mg by mouth 2 times daily . Given 02/04/2019 9:12 AM CDT 40 mg Given 02/03/2019 8:41 PM CDT 40 mg Given 02/03/2019 8:57 AM CDT 40 mg sodium chloride 0.9% bolus solution 1,000 mL 1,000 mL, IV, ONE TIME ONLY, 1 dose, On Sat02/01/19 at 2215, at 2,000 mL/hr, Administer over 30 Minutes, Routine New Bag 02/01/2019 10:15 PM CDT 1,000 mL 2000 mL/hr sodium chloride 0.9% infusion IV, at 125 mL/hr, CONTINUOUS, Starting on Sat02/02/19 at 0630, Until Sat02/04/19 at 1808, Routine New Bag 02/04/2019 6:58 AM CDT 125 mL/hr Rate Change 02/04/2019 6:50 AM CDT 125 mL/hr Rate Change 02/04/2019 6:43 AM CDT 20 mL/hr traZODone (DESYREL) tablet 100 mg 100 mg, Oral, DAILY AT BEDTIME, First dose on Sat02/02/19 at 2100, Until Discontinued, Routine Given 02/03/2019 8:41 PM CDT 100 mg Given 02/02/2019 8:10 PM CDT 100 mg documented in this encounter Active and Recently Administered Medications Times are shown in CDT. Scheduled Medication Order 02/02/2019 02/03/2019 02/04/2019 atorvastatin (LIPITOR) tablet 80 mg 80 mg, Oral, DAILY AT BEDTIME, First dose on Sat02/02/19 at 2100, Until Discontinued, Routine 2009 (Given - Provider: Demetra Lassiter, RN) 2040 (Given - Provider: Demetra Lassiter, RN) calcium GLUCONATE 2,000 mg in sodium chloride 0.9% 120 mL IVPB (COMPLETED) 2,000 mg, IV, ONE TIME ONLY, 1 dose, On Sat02/03/19 at 1400, Routine 1520 (New Bag - Provider: Sharri Juarez, RN)1523 (Rate Change - Provider: Yamil Bejarano, RN)1529 (Rate Change - Provider: Yamil Bejarano, RN)1542 (Rate Change - Provider: Yamil Bejarano, RN)1600 (Rate Change - Provider: Yamil Bejarano, RN)1611 (Rate Change - Provider: Yamil Bejarano, CLAU)1611 (Stopped - Provider: Yamil Bejarano RN)1620 (Stopped - Provider: Daniel Whitehead, CLAU) citalopram (CeleXA) tablet 40 mg 40 mg, Oral, DAILY AT BEDTIME, First dose on Sat02/02/19 at 2100, Until Discontinued, Routine 2009 (Given - Provider: Demetra Lassiter RN) 2040 (Given - Provider: Demetra Lassiter RN) dextrose 5% - sodium chloride 0.9% infusion IV, at 40 mL/hr, SEE ADMIN INSTRUCTIONS, Starting on Sat02/02/19 at 1419, Until Sat02/04/19 at 1808, Routine dextrose 50% (D50) syringe 12.5 Gram 12.5 Gram, IV, SEE ADMIN INSTRUCTIONS, Starting on Sat02/02/19 at 1419, Until Sat02/04/19 at 1808, Routine dextrose 50% (D50) syringe 25 Gram 25 Gram, IV, SEE ADMIN INSTRUCTIONS, Starting on Sat02/02/19 at 1419, Until Sat02/04/19 at 1808, Routine dicyclomine (BENTYL) capsule 10 mg 10 mg, Oral, FOUR TIMES DAILY, First dose on Sat02/02/19 at 0900, Until Discontinued, Routine 0900 (Canceled Entry - Provider: Yamil Bejarano RN)1536 (Given - Provider: Yamil Bejarano RN)1737 (Given - Provider: Yamil Bejarano RN)2009 (Given - Provider: Demetra Lassiter RN) 0856 (Given - Provider: Yamil Bejarano RN)1201 (Given - Provider: Yamil Bejarano RN)1735 (Given - Provider: Yamil Bejarano RN)2041 (Given - Provider: Demetra Lassitre RN) 0912 (Given - Provider: Yamil Bejarano RN)1305 (Given - Provider: Yamil Bejarano RN) enoxaparin (LOVENOX) injection 40 mg 40 mg, subCUT, EVERY 24 HOURS, First dose on Sat02/02/19 at 1230, Until Discontinued, Routine, Indication: Prophylaxis of VTE, Dose to be adjusted per facility protocol? Yes 1430 (Given - Provider: Yamil Bejarano RN) 1201 (Given - Provider: Yamil Bejarano RN) 1306 (Given - Provider: Yamil Bejarano RN) flu vaccine quadrivalent 2018- 6mos up(PF) (FLUARIX QUAD,FLULAVAL QUAD,FLUZONE QUAD) 60 mcg (15 mcg x 4)/0.5 mL syringe 60 mcg (COMPLETED) 60 mcg (0.5 mL), IM, ONE TIME ONLY, 1 dose, On Sat02/02/19 at 1600, Routine 1537 (Given - Provider: Yamil Bejarano RN) glucagon HCl 1 mg injection 1 mg 1 mg, IM, SEE ADMIN INSTRUCTIONS, Starting on Sat02/02/19 at 1419, Until Sat02/04/19 at 1808, Routine heparin injection 2,000 Units (COMPLETED) 2,000 Units, IV, ONE TIME ONLY, 1 dose, On Sat02/03/19 at 1400, Stat, PLEASE TUBE TO STATION 516. 1618 (Given - Provider: Daniel Whitehead, CLAU) heparin injection 2,000 Units (COMPLETED) 2,000 Units, IV, ONE TIME ONLY, 1 dose, On Sat02/03/19 at 1400, Stat, PLEASE TUBE TO STATION 516. 1617 (Given - Provider: Daniel Whitehead, CLAU) HYDROmorphone (DILAUDID) 2 mg/mL injection 0.3 mg (COMPLETED) 0.3 mg, IV, ONE TIME ONLY, 1 dose, On Sat02/02/19 at 0430, Routine 0458 (Given - Provider: Janie Stanton) insulin glargine (LANTUS) injection 15 Units 15 Units, subCUT, DAILY AT BEDTIME, First dose on Sat02/02/19 at 2100, Until Discontinued, Routine 2014 (Given - Provider: Demetra Lassiter RN) 2042 (Given - Provider: Demetra Lassiter RN) insulin lispro (HumaLOG) injection 3 Units 3 Units, subCUT, THREE TIMES DAILY WITH MEALS, First dose (after last modification) on Sat02/04/19 at 0700, Until Discontinued, Routine 1023 (Given - Provider: Yamil Bejarano RN)1327 (Given - Provider: Yamil Bejarano RN) insulin lispro (HumaLOG) variable dose injection subCUT, THREE TIMES DAILY WITH MEALS, First dose on Sat02/03/19 at 1800, Until Discontinued, Routine 1800 (Not Given - Provider: Yamil Bejarano RN - Reason: Lab results) 0930 (Not Given - Provider: Yamil Bejarano RN - Reason: Lab results)1200 (Not Given - Provider: Yamil Bejarano RN - Reason: Lab results - Comment: bg 168) insulin lispro (HumaLOG) variable dose injection subCUT, DAILY AT BEDTIME, First dose on Sat02/03/19 at 2100, Until Discontinued, Routine 2100 (Not Given - Provider: Demetra Lassiter RN - Reason: Lab results - Comment: BG 167) levothyroxine (SYNTHROID) tablet 200 mcg 200 mcg, Oral, DAILY, First dose on Sat02/02/19 at 1200, Until Discontinued, Routine, Previous Med: levothyroxine 200 mcg tablet - Orig Sig - Take 1 Tablet by mouth daily without food in the morning 30 minutes before eating anything. 1737 (Given - Provider: Yamil Bejarano RN) 0635 (Given - Provider: Demetra Lassiter RN) 0545 (Given - Provider: Demetra Lassiter RN) yclxzw-hlssjgzw-mbrqkbh DR (AMELIA) 12,000-38,000-60,000 unit per capsule 2 Capsule 2 Capsule, Oral, FOUR TIMES DAILY WITH MEALS AND AT BEDTIME, First dose on Sat02/02/19 at 0700, Until Discontinued, Routine 0700 (Not Given - Provider: Ligia James RN - Reason: Patient NPO)1536 (Given - Provider: Yamil Bejarano, RN)1737 (Given - Provider: Yamil Bejarano, RN)2009 (Given - Provider: Demetra Lassiter, RN) 0635 (Not Given - Provider: Demetra Lassiter RN - Reason: Patient NPO - Comment: pt states she only takes with food)1201 (Given - Provider: Yamil Bejarano, RN)1735 (Given - Provider: Yamil Bejarano, RN)2100 (Refused - Provider: Demetra Lassiter RN - Comment: pt states she only takes with meals) 0912 (Given - Provider: Yamil Bejarano, CLAU)1306 (Given - Provider: Yamil Bejarano RN) LORazepam (ATIVAN) 2 mg/mL injection 1 mg (COMPLETED) 1 mg, IV, ONE TIME ONLY, 1 dose, On Sat02/01/19 at 2345, Routine 0025 (Given - Provider: Blake Mike RN) morphine injection 5 mg (COMPLETED) 5 mg, IV, ONE TIME ONLY, 1 dose, On Sat02/02/19 at 0630, Routine 0809 (Given - Provider: Ligia James, CLAU) morphine injection 6 mg (COMPLETED) 6 mg, IV, ONE TIME ONLY, 1 dose, On Sat02/02/19 at 0300, Routine 0300 (Given - Provider: Janie Stanton) naloxone (NARCAN) 0.4 mg/mL injection 0.1 mg 0.1 mg, IV, SEE ADMIN INSTRUCTIONS, Starting on Sat02/02/19 at 0616, Until Sat02/04/19 at 1808, Routine niacin SR capsule 500 mg 500 mg, Oral, DAILY AT BEDTIME, First dose on Sat02/02/19 at 2100, Until Discontinued, Routine, Previous Med: niacin SR 500 mg capsule - Orig Sig - Take 1 Capsule (500 mg) by mouth daily at bedtime. 2100 (Not Given - Provider: Demetra Lassiter RN - Reason: Route not available - Comment: med unavailable from pharmacypt must bring own supply) 2100 (Not Given - Provider: Demetra Lassiter RN - Reason: Other - See Comment - Comment: pharmacy does not carrypt has not [facility] home supply) ondansetron (ZOFRAN) 4 mg/2 mL injection 4 mg (COMPLETED) 4 mg, IV, ONE TIME ONLY, 1 dose, On Sat02/02/19 at 0515, Stat 0518 (Given - Provider: Janie Stanton)0530 (Not Given - Provider: Yamil Bejarano, CLAU - Reason: Medication already given) pantoprazole (PROTONIX) tablet 40 mg 40 mg, Oral, TWO TIMES DAILY, First dose on Sat02/02/19 at 0900, Until Discontinued, Routine, Previous Med: pantoprazole (PROTONIX) 40 mg Tablet, Delayed Release (E.C.) - Orig Sig - Take 40 mg by mouth 2 times daily . 1156 (Given - Provider: Ligia James RN)2010 (Given - Provider: Demetra Lassiter RN) 0857 (Given - Provider: Yamil Bejarano, RN)2040 (Given - Provider: Demetra Lassiter RN) 09 (Given - Provider: Yamil Bejarano, CLAU) traZODone (DESYREL) tablet 100 mg 100 mg, Oral, DAILY AT BEDTIME, First dose on Sat02/02/19 at 2100, Until Discontinued, Routine 2009 (Given - Provider: Demetra Lassiter RN) 2040 (Given - Provider: Demetra Lassiter RN) Continuous Medication Order 02/02/2019 02/03/2019 02/04/2019 dextrose 5% - sodium chloride 0.9% infusion IV, at 150 mL/hr, CONTINUOUS, Starting on Sat02/01/19 at 2345, Until Sat02/04/19 at 1808, Routine 0047 (New Bag - Provider: Blake Mike RN)0129 (Rate Verify - Provider: Demetra Lassiter RN)0130 (Paused - Provider: Demetra Lassiter RN)0132 (Restarted - Provider: Demetra Lassiter RN)0242 (Paused - Provider: Demetra Lassiter RN)0410 (Restarted - Provider: Demetra Lassiter RN)0410 (Paused - Provider: Demetra Lassiter RN)0410 (Restarted - Provider: Demetra Lassiter RN)0411 (Paused - Provider: Demetra Lassiter RN)0411 (Restarted - Provider: Demetra Lassiter RN)0411 (Paused - Provider: Demetra Lassiter RN)0411 (Restarted - Provider: Demetra Lassiter RN)0411 (Paused - Provider: Demetra Lassiter RN)0411 (Restarted - Provider: Demetra Lassiter RN)0411 (Paused - Provider: Demetra Lassiter RN)0412 (Restarted - Provider: Demetra Lassiter RN)0412 (Paused - Provider: Demetra Lassiter RN)0412 (Restarted - Provider: Demetra Lassiter RN)0412 (Paused - Provider: Demetra Lassiter RN)0413 (Restarted - Provider: Demetra Lassiter RN)0413 (Paused - Provider: Demetra Lassiter RN)0413 (Restarted - Provider: Demetra Lassiter RN)0413 (Paused - Provider: Demetra Lassiter RN)0413 (Restarted - Provider: Demetra Lassiter RN)0414 (Paused - Provider: Demetra Lassiter RN)0414 (Restarted - Provider: Demetra Lassiter RN)0414 (Rate Verify - Provider: Demetra Lassiter RN)0414 (Paused - Provider: Demetra Lassiter RN)0414 (Restarted - Provider: Demetra Lassiter RN)0415 (Paused - Provider: Demetra Lassiter RN)0415 (Restarted - Provider: Demetra Lassiter RN)0415 (Paused - Provider: Demetra Lassiter RN)0415 (Restarted - Provider: Demetra Lassiter RN)0415 (Stopped - Provider: Demetra Lassiter RN)0425 (Stopped - Provider: Genoveva Melendez RN - Comment: Infusion stopped at this time per MD) insulin regular (HUMULIN R,NOVOLIN R) 100 Units in sodium chloride 0.9% 99 mL infusion (CANCELED) 3 Units/hr (3 mL/hr), IV, CONTINUOUS, Starting on 02/01/19 at 2345, Until Sat02/02/19 at 1418 0112 (New Bag - Provider: Blake Mike RN - Comment: Unable to connect to Alaris pump. manually entered.)0427 (Stopped - Provider: Genoveva Melendez RN - Comment: Infusion stopped at this time per MD) sodium chloride 0.9% infusion IV, at 125 mL/hr, CONTINUOUS, Starting on Sat02/02/19 at 0630, Until Sat02/04/19 at 1808, Routine 1441 (New Bag - Provider: Yamil Bejarano RN)1444 (Rate Verify - Provider: Demetra Lassiter RN)1804 (Paused - Provider: Demetra Lassiter RN)1810 (Restarted - Provider: Demetra Lassiter RN)2012 (Paused - Provider: Demetra Lassiter RN)2014 (Restarted - Provider: Demetra Lassiter RN)2250 (Rate Change - Provider: Demetra Lassiter RN)2250 (Rate Change - Provider: Demetra Lassiter RN)225 (Paused - Provider: Demetra Lassiter RN)2252 (Restarted - Provider: Demetra Lassiter RN) 0100 (Rate Verify - Provider: Demetra Lassiter RN)0327 (Paused - Provider: Demetra Lassiter RN)0331 (Restarted - Provider: Demetra Lassiter RN)0530 (Rate Verify - Provider: Demetra Lassiter RN)0632 (Rate Change - Provider: Yamil Bejarano RN)0634 (New Bag - Provider: Demetra Lassiter RN)0634 (Paused - Provider: Yamil Bejarano RN)0634 (Restarted - Provider: Yamil Bejarano RN)1434 (Rate Change - Provider: Yamil Bejarano RN)1435 (Paused - Provider: Yamil Bejarano RN)1443 (Rate Change - Provider: Yamil Bejarano RN)1635 (Paused - Provider: Yamil Bejarano RN)1641 (Restarted - Provider: Yamil Bejarano RN)1823 (Rate Verify - Provider: Yamil Bejarano RN)2033 (Paused - Provider: Demetra Lassiter RN)203 (Restarted - Provider: Demetra Lassiter RN)2200 (Rate Verify - Provider: Demetra Lassiter RN)225 (Rate Change - Provider: Demetra Lassiter RN)2253 (Paused - Provider: Demetra Lassiter RN)2258 (Restarted - Provider: Demetra Lassiter RN)2258 (Rate Change - Provider: Demetra Lassiter RN) 0500 (Rate Verify - Provider: Demetra Lassiter RN)0540 (Paused - Provider: Yamil Bejarano RN)0545 (Restarted - Provider: Yamil Bejarano RN)0546 (Paused - Provider: Yamil Bejarano RN)0549 (Restarted - Provider: Yamil Bejarano RN)0643 (Rate Change - Provider: Yamil Bejarano RN)0650 (Rate Change - Provider: Yamil Bejarano, RN)0658 (Paused - Provider: Yamil Bejarano, RN)0658 (New Bag - Provider: Demetra Lassiter RN)1324 (Paused - Provider: Yamil Bejarano, RN)1329 (Paused - Provider: Yamil Bejarano, RN)1422 (Stopped - Provider: Yamil Bejarano RN) PRN Medication Order 02/02/2019 02/03/2019 02/04/2019 acetaminophen (TYLENOL) tablet 650 mg 650 mg, Oral, EVERY 6 HOURS PRN, Starting on Sat02/02/19 at 0627, Until Sat02/04/19 at 1808, Other (See Comment), See admin instructions, Routine HYDROcodone-acetaminop hen (NORCO) 5-325 mg per tablet 1 Tablet 1 Tablet, Oral, EVERY 4 HOURS PRN, Starting on Sat02/02/19 at 0425, Until Sat02/04/19 at 1808, Pain (See admin instructions), Routine 2000 (Given - Provider: Demetra Lassiter RN) 331 (Given - Provider: Demetra Lassiter RN)102 (Given - Provider: Yamil Bejarano, CLAU)2041 (Given - Provider: Demetra Lassiter RN) 09 (Given - Provider: Yamil Bejarano RN) HYDROcodone-acetaminop hen (NORCO) 5-325 mg per tablet 1 Tablet (CANCELED) 1 Tablet, Oral, EVERY 6 HOURS PRN, Starting on Sat02/02/19 at 0616, Until Sat02/02/19 at 1242, Pain, Severe, Routine, Previous Med: HYDROcodone-acetaminop hen (NORCO) 5-325 mg tablet - Orig Sig - Take 1 Tablet by mouth every 6 hours as needed for Pain, Severe. Max Daily Amount: 4 Tablets 0634 (Given - Provider: Janie Stanton) HYDROmorphone (DILAUDID) 2 mg/mL injection 0.3 mg 0.3 mg, IV, EVERY 3 HOURS PRN, Starting on Sat02/02/19 at 1239, Until Sat02/04/19 at 1808, Pain (See admin instructions), Routine 1441 (Given - Provider: Yamil Bejarano RN)1740 (Given - Provider: Yamil Bejarano, RN)2203 (Given - Provider: Demetra Lassiter, CLAU) 0441 (Given - Provider: Demetra Lassiter RN)0850 (Given - Provider: Yamil Bejarano, CLAU)1201 (Given - Provider: Yamil Bejarano, RN)1639 (Given - Provider: Yamil Bejarano, RN)2155 (Given - Provider: Demetra Lassiter RN) 0615 (Given - Provider: Blanka Gomez RN)1307 (Given - Provider: Yamil Bejarano RN) LORazepam (ATIVAN) 2 mg/mL injection 1 mg 1 mg, IV, EVERY 6 HOURS PRN, Starting on Sat02/02/19 at 0628, Until Sat02/04/19 at 1808, Nausea/Emesis, Discomfort, Routine LORazepam (ATIVAN) tablet 1 mg 1 mg, Oral, TWO TIMES DAILY PRN, Starting on Sat02/02/19 at 0615, Until Sat02/04/19 at 1808, Anxiety, Routine, Previous Med: LORazepam (ATIVAN) 1 mg tablet - Orig Sig - Take 1 mg by mouth 2 times daily as needed for Anxiety . 1156 (Given - Provider: Ligia James, CLAU) morphine 4 mg/mL injection 4 mg (CANCELED) 4 mg, IV, EVERY 4 HOURS PRN, Starting on Sat02/02/19 at 0627, Until Sat02/02/19 at 1242, Pain (See admin instructions), Routine 1156 (Given - Provider: Ligia James, CLAU) ondansetron (ZOFRAN) 4 mg/2 mL injection 4 mg 4 mg, IV, EVERY 6 HOURS PRN, Starting on Sat02/02/19 at 0628, Until Sat02/04/19 at 1808, Nausea/Emesis, Routine 1156 (Given - Provider: Ligia James, RN)2011 (Given - Provider: Demetra Lassiter, CLAU) 1023 (Given - Provider: Yamil Bejarano RN)2200 (Given - Provider: Demetra Lassiter RN) documented in this encounter Care Teams Reinsurance Claims Analyst Relationship Specialty Start Date End Date Guerrero Middleton PA-C PCP - General Physician Syrup Blender 02/13/18 documented as of this encounter
--- OUTSIDE RECORDS SUMMARY | 2024-05-03 20:43 | XMS_ITS | Encounter Summary ---
Author Organization [facility] Address [address] [place] [address] Care Team Providers Care Car Audio Installer Name Role Phone Guerrero Middleton PA-C Primary Care Provide r Encounter Details Date Type Department Care Team (Latest Contact Info) Description 01/21/2019 8:50 AM CDT - 01/21/2019 11:59 PM T Hospital Encounter [facility] [address] [place] [address] Alize Arteaga MD NO ADDRESS ON FILE [...] Sign Reading Time Taken Comments Blood Pressure 119/89 01/21/2019 11:24 AM CDT Pulse 103 01/21/2019 11:24 AM CDT Temperature 36.9 ??C (98.5 ??F) 01/21/2019 11:24 AM C DT Respiratory Rate 16 01/21/2019 11:24 AM CDT Oxygen Saturation - - Inhaled [...] Progress Notes * Daniel Whitehead RN - 01/21/2019 10:00 AM CDT Plasma exchange completed today using right chest BARD ports for draw and return. Medial side used for draw and distal for return. 1.0 volume, 100% fluid balance using 5% Albumin as replacement fluidcompleted. 2 grams calcium gluconate given intra procedure. Patient tolerated procedure well. Next p rocedure scheduled for 01/28/[address] Arteaga. 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 ?? Interval history: ?Has been less consistent with diet recently as traveling a bit with her children for their band activities. ??Feeling worse lately. ??Having abdominal pain, nausea, facial fullness, and migraines- all of which she associates with episodes of hypertriglyceridemic pancreatitis. ??Due to all of this we are doing [...] Skin: - Inspection: No rashes evident -Port accessed??in R chest??at time of my exam.??No erythema, induration or drainage observed??at port site. Respiratory: - Unlabored breathing Neuro: - Alert and Oriented x 3 - Normal Affect ?? Labs:??triglycerides??1,817 (pre) ?? A&P: 1. 43??yo female with??recurrent??hypertriglyceridemic [...] and records. ?? Alize Arteaga MD, PhD Image Processing Engineer, therapeutic apheresis service [phone] ?? Procedure #9??notes: Patient tolerated procedure well.?Patient complained of some pain around medial port site and nursing confirmed that the port did seem a bit tender, possibly due to multiple accesses last week. No signs of infection or malpositioning of the port. Port worked appropriately for procedure. We will continue to monitor. documented in this encounter Plan of Treatment Upcoming Encounters Date Type Department Care Team (Late st Contact Info) Description 09/14/2024 3:00 PM CDT Office Visit [facility] [place] [id number] [address] [place] [address] Marlys Mayer MD [address] [facility] [place] [address] documented as of this encounter Procedures Procedure Name Priority Date/Time Associated Diagnosis Comments TRIGLYCERIDE Routine 01/21/2019 10:14 AM CDT Metabolic syndrome History of gestational [...] in this encounter Results * (ABNORMAL) TRIGLYCERIDE (01/21/2019 10:14 AM CDT) TRIGLYCERIDE 1,817(H) <150 mg/dL 01/21/2019 11:42 AM CDT [facility] Blood Collection / Unknown 01/21/2019 10:14 AM CDT 01/21/2019 10:29 AM CDT Narrative [facility] - 01/21/2019 11:42 AM CDT TRIGLYCERIDES ? mg/dL Normal ?< 150 Borderline High ?150 - 199 High ? 200 - 499 Very High ? >= 500 Based on AHA/NCEP Guidelines. Alize Arteaga MD CHEMISTRY ORDER [place] [facility]# [id number] [address] [place] [address] documented in this encounter Visit Diagnoses Diagnosis [...] IV, INTRA-PROCEDURE ONCE, 1 dose, Starting on Sat01/21/19 at 1000, Until Sat01/21/19 at 1113, Routine New Bag 01/21/2019 10:23 AM CDT 2,000 mg 240 mL/hr heparin injection 2,000 Units 2,000 Units, IV, ONE TIME ONLY, 1 dose, On Sat01/21/19 at 1100, Routine Given 01/21/2019 11:37 AM CDT 2,000 Units heparin injection 2,000 Units 2,000 Units, IV, ONE TIME ONLY, 1 dose, On Sat01/21/19 at 1100, Routine Given 01/21/2019 11:27 AM CDT 2,000 Units documented in this encounter Care Teams Car Audio Installer Relationship Specialty Start Date End Date Guerrero Middleton PA-C PCP - General Physician Cane Flume Feeding Machine Operator 02/13/18 documented as of this encounter
--- OUTSIDE RECORDS SUMMARY | 2024-05-03 20:43 | XMS_ITS | Encounter Summary ---
Author Organization [facility] Address [address] [place] [address] Care Team Providers Care Voyage Management System Operator Name Role Phone Guerrero Middleton PA-C Primary Care Provide r Reason for Visit * Reason Comments Follow Up dm Encounter Details Date Type Department Care Team (Late st Contact Info) Description 04/08/2019 1:15 PM TEST ENGINE EVALUATOR Office Visit [facility] [address] [place] [address] Blake Rudd MD NO ADDRESS ON FILE Type 2 diabetes mellitus with hyperglycemia, with long-term current use of insulin (Primary Dx); Muscle pain; Acquired hypothyroidism; Hypertriglyceridemia; Pancreatitis, recurrent Social History Tobacco Use Types Packs/Day Years [...] any clubs o r organizations such as restorationist groups, unions, fraternal or athletic groups, or [...] Sign Reading Time Taken Comments Blood Pressure 128/82 04/08/2019 1:21 PM TEST ENGINE EVALUATOR Pulse 89 04/08/2019 1:21 PM TEST ENGINE EVALUATOR Temperature - - Respiratory Rate - - Oxygen Saturation - - Inhaled Oxygen Concentration - - Weight 88 kg (194 lb) 04/08/2019 1:21 PM TEST ENGINE EVALUATOR Height 165.1 cm (5' 5 ) 04/08/2019 1:21 PM TEST ENGINE EVALUATOR Body Mass Index 32.28 04/08/2019 1:21 PM TEST ENGINE EVALUATOR documented in this encounter Progress Notes * Blake Rudd MD - 04/08/2019 3:51 PM CST [facility] PCP: Guerrero Middleton PA-C NAME: Casandra Jones : 1975 Reason for visit: hyperTG, T2DM Subjective: Casandra Jones was referred for consultation by Dr. Mayer for advice and opinion regarding DM, hyperTG. Casandra Jones is a 43 y.o. female with a history of hyperTG, hypothyroidism, T2DM presenting for eval. Has had pancreatitis related to hyperTG. Most recently in March. This was evident on CT with mild fat stranding. She was treated with plasmapheresis. HyperTG for at least 10 yrs. Recently admitted for pancreatitis. Takes 4g fish oil daily, 160 mg fenofibrate, 500 niacin BID, Also has hypothyroidism. Just increased 200mcg LT4 a little over 6 wks ago. DM: Compliant with insulin. Also takes metformin 500 BID. Lantus 28 units in morning and 38 units at bedtime novolog 8 (if only drinking coffee)/12 with breakfast novolog 14 with lunch novolog 18-20 with dinner Checks glucose 4x daily Am BG 120-130 Before lunch 160 Before dinner 160-180 Bedtime, usually over 200, usually takes 1 or 2 units at bedtime Started insulin 06/2016 Has dexcom g6 but doesn't have transmitter. Needs eye exam: no retinopathy known Has occassional numbness and tingling in feet. Pertinent Endocrine ROS: + per HPI Interval Hx Returns for f/u of HyperTG and T2DM Not doing well, having abd pain and nausea. Also having CORTES She feels as if she needs to have plasmapheresis She wants a port placed for bimonthly pheresis She is going to [place] in the coming weeks for evaluation. She is requesting pain to either go the ED or get pain meds. She is compliant with insulin regimen lantus 28 in AM and 38 in PM Humalog 8 with breakfast, 16 with lunch, 22 with dinner 04/08/19 Casandra returns for follow-up of hypertriglyceridemia and type 2 diabetes. She is having weekly plasmapheresis. She has recently been evaluated by [facility]. Her niacin and fish oil were stopped. Her insulin was increased to Lantus 35 twice daily and Humalog 25 units with each meal. She reports frequent missed doses. She is off the metformin 1000 twice daily. She is not a candidate for a GLP-1 agonist or DPP 4 inhibitor. Review of Systems: Gen: denies fever chills Eye/vision: denies double vision, eye pain ENT: denies dysphagia/disphonia Resp: denies shortness of breath, cough CV: denies chest pain/palpitations GI: denies abdominal pain, diarrhea, constipation, nausea/vomiting : denies dysuria, incontinence ENDO: See HPI for pertinent endocrine ROS Neuro: denies seizures, weakness, tremors Psych: denies memory/orientation/mood problems Extr: denies swelling, decreased ROM All other review of systems negative in detail Medications: Current Outpatient Medications Medication Sig Dispense Refill ??? empagliflozin (JARDIANCE) 10 mg tablet Take 1 Tablet (10 mg) by mouth daily online communications manager. 30 Tablet 5 ??? HYDROcodone-acetaminophen (NORCO) 5-325 mg tablet Take 1 Tablet by mouth every 6 hours as needed for Pain, Severe. Max Daily Amount: 4 Tablets 10 Tablet 0 ??? levothyroxine 200 mcg tablet Take 1 Tablet by mouth daily without food in the morning 30 minutes before eating anything. 30 Tablet 5 ??? dicyclomine (BENTYL) 10 mg capsule Take 1 Capsule by mouth 4 times daily. 60 Capsule 0 ??? metFORMIN (GLUCOPHAGE) 500 mg tablet Take [...] needed for nausea/vomiting. 30 Tablet 0 ??? insulin glargine (LANTUS) 100 unit/mL injection Inject 35 Units by subcutaneous injection 2 times daily. 35 units in the AM 35 units in the PM ??? pantoprazole (PROTONIX) 40 mg Tablet, Delayed [...] 90 Tab 0 No current facility-administered medications for this visit. Facility-Administered Medications Ordered in Other Visits Medication Dose Route Frequency Provider Last Rate Last Dose ??? alteplase (CATHFLO ACTIVASE) 2 mg injection 2 mg 2 mg [place]well ONCE Alize Arteaga MD And ??? water sterile injection See Admin Instructions ONCE Alize Arteaga MD ??? [COMPLETED] alteplase (CATHFLO ACTIVASE) 2 mg injection 2 mg 2 mg Dwell ONCE Alize Arteaga MD 2 mg at 04/08/19 1048 And ??? [COMPLETED] water sterile injection See Admin Instructions ONCE Alize Arteaga MD ??? [COMPLETED] heparin injection 2,000 Units 2,000 Units IV ONCE Alize Arteaga MD 2,000 Units at 04/08/19 1228 ??? [COMPLETED] heparin injection 2,000 Units 2,000 Units IV ONCE Alize Arteaga MD 2,000 Units at 04/08/19 1100 ??? [COMPLETED] calcium GLUCONATE 2,000 mg in sodium chloride 0.9% 120 mL IVPB 2,000 mg IV Intra-Proc Once Alize Arteaga MD Stopped at 04/08/19 1211 Social History: Social History Socioeconomic History ??? Marital status: Spouse name: Not on file ??? Number of children: Not on file ??? Years of education: Not on file ??? Highest education level: Not on file Occupational History Employer: [employer] Social Needs ??? Financial resource strain: Not [...] Gets together: Three times a week Attends caodaism service: Never Active member of club or organization: No Attends meetings of clubs or organizations: Never Relationship status: ??? Intimate partner violence: Fear of current or ex partner: No Emotionally abused: No Physically abused: No Forced sexual activity: No Other Topics Concern ??? Not on file Social History Narrative Merged History Encounter Family History: Family History Problem Relation Name Age of Onset ??? Diabetes Father ??? High Cholesterol Father ??? Hypertension Father ??? Stroke Mother ??? Heart Disease Mother ??? Thyroid Disease Mother ??? High Cholesterol Mother ??? Heart Disease Maternal Grandmother ??? Diabetes Maternal Grandmother ??? Diabetes Paternal Grandmother ??? Diabetes Mother Medical History: Past Medical History: Diagnosis Date [...] TUNNELED VENOUS CATHETER PLACEMENT Right 09/29/2018 ??? [place] ESOPHAGOGASTRODUODENOSCOPY TRANSORAL DIAGNOSTIC N/A 03/08/2018 ESOPHAGOGASTRODUODENOSCOPY performed by Ceasar Vega MD at [facility] Physical Findings: No results found for this visit on 04/08/19. Wt Readings from Last 3 Encounters: 04/08/19 88 kg (194 lb) 02/18/19 89.1 kg (196 lb 8 oz) 02/02/19 85.6 kg (188 lb 12.8 oz) Physical Exam: BP 128/82 Pulse 89 Ht 5' 5 (1.651 m) Wt 88 kg (194 lb) BMI 32.28 kg/m?? GEN: well-nourished, NAD HEENT: normocephalic, autramatic; sclera anicteric NECK: thyroid normal in size and texture with no palpable nodule CV: RRR, no m/r/g; no LE edema, DP and PT pulsus present b/l RESP: CTAB ABD: diffuse tenderness to palpation NEURO: A&O, nl gait SKIN: warm and dry FEET: nl sensation to 10g monofilament testing, nails without dystrophic changes, no calluses or other lesions present, ankle reflex present b/l LYMPH: no cervical LAD Lab: Lab Results Component Value Date/Time SODIUM 139 02/01/2019 10:15 PM POTASSIUM 4.5 02/01/2019 10:15 PM CHLORIDE 100 02/01/2019 10:15 PM CO2 23 02/01/2019 10:15 PM CALCIUM 9.0 02/01/2019 10:15 PM BUN 9 02/01/2019 10:15 PM CREATININE 0.58 02/01/2019 10:15 PM GLUCOSE 242 (H) 02/01/2019 10:15 PM TOTAL PROTEIN 6.5 (L) 02/01/2019 10:15 PM ALBUMIN 4.5 02/01/2019 10:15 PM BILIRUBIN TOTAL <0.2 (L) 02/01/2019 10:15 PM ALKALINE PHOSPHATASE 62 02/01/2019 10:15 PM AST 17 02/01/2019 10:15 PM ALT 11 02/01/2019 10:15 PM Lab Results Component Value Date/Time CHOLESTEROL 162 02/01/2019 10:15 PM HDL 30 (L) 02/01/2019 10:15 PM LDL CALCULATED 02/01/2019 10:15 PM Comment: Calculated LDL is not accurate when the Triglyceride value exceeds 400. LDL CHOLESTEROL, DIRECT 110 08/10/2011 07:21 AM TRIGLYCERIDE 1,419 (H) 03/20/2019 10:50 AM Lab Results Component Value Date/Time WBC 9.5 03/20/2019 10:50 AM HEMOGLOBIN 12.6 03/20/2019 10:50 AM HEMATOCRIT 37.5 03/20/2019 10:50 AM PLATELETS 220 03/20/2019 10:50 AM MCV 87.4 03/20/2019 10:50 AM Lab Results Component Value Date/Time HEMOGLOBIN A1C 7.7 (H) 06/29/2018 08:17 PM Lab Results Component Value Date/Time TSH 4.04 05/16/2018 09:38 PM Assessment/Plan: 1. Type 2 diabetes mellitus with hyperglycemia, with long-term current use of insulin Target A1c is less than 7%. This remains poorly controlled. She admits to some noncompliance with insulin. I will add Jardiance. She will send in blood sugars with 4 times daily monitoring to better assess her glycemic control. Labs have been ordered for prior to her next visit. 2. Acquired hypothyroidism Last TSH wnl on 200mcg Lt4 daily. She is clinically euthyroid. Repeat thyroid labs have been ordered for prior to next visit. 3. Hypertriglyceridemia She will continue high intensity statin as well as fibrate. She is getting weekly plasmapheresis. 4. Pancreatitis, recurrent We need to improve her diabetes control and TG levels in an effort to prevent recurrence. She is tocontinue weekly plasmapheresis 5. obesity Body mass index is 32.28 kg/m??. Lifestyle modification discussed 6. Muscle pain She is having some muscle discomfort when standing. CMP, magnesium, and vitamin D have been ordered. Orders Placed This Encounter ??? VITAMIN D 25 HYDROXY (HPT New) ??? COMPREHENSIVE METABOLIC PANEL (Adrenal Adenoma) ??? MAGNESIUM LEVEL (Osteo New) ??? HEMOGLOBIN A1C ??? TSH (HPT New) ??? empagliflozin (JARDIANCE) 10 mg tablet RTC: 3mo Patient agrees with plan and verbalizes understanding. Thank you for allowing me to participated in the care of this patient. Please feel free to contact me with any questions. Blake Rudd MD PhD ENGINE EVALUATOR documented in this encounter Plan of Treatment Upcoming Encounters Date Type Department Care Team (Late st Contact Info) Description 09/14/2024 3:00 PM CDT Office Visit [facility] - [facility] [id number] [place] [phone] Marlys Mayer MD [address] [place] [address] documented as of this encounter Visit Diagnoses Diagnosis Type 2 diabetes mellitus with hyperglycemia, with long-term current use of insulin- Primary Muscle pain Mylagia and myositis, unspecified Acquired hypothyroidism Unspecified hypothyroidism Hypertriglyceridemia Pure hyperglyceridemia Pancreatitis, recurrent Chronic pancreatitis documented in this encounter Care Teams Voyage Management System Operator Relationship Specialty Start Date End Date Guerrero Middleton PA-C PCP - General Physician Director Of [facility] 02/13/18 documented as of this encounter
--- OUTSIDE RECORDS SUMMARY | 2024-05-03 20:43 | XMS_ITS | Encounter Summary ---
Author Organization [facility] Address [address] [place] [address] Care Team Providers Care Air Director Name Role Phone Guerrero Middleton PA-C Primary Care Provide r Reason for Referral * Radiology Services (Routine) - Closed Specialty Diagnoses / Procedures Referred By Contac t Referred To Contact Diagnoses Follow up Procedures IR VENOUS NECK Laverne Willoughby MD Department of Radiology [address] [place] [address] Referral ID Status Reason Start Date Expiration Date Visits Re quested Visits Authorized [id number] Closed 02/11/2019 03/13/2020 1 1 Reason for Visit * Auth/Cert Specialty Diagnoses / Procedures Referred By Contac t Referred To Contact General Surgery Diagnoses Follow up Procedures IR VENOUS NECK [facility] [address] [address] Referral ID Status Reason Start Date Expiration Date Visits Re quested Visits Authorized [id number] 1 1 Encounter Details Date Type Department Care Team (Latest Contact Info) Description 02/18/2019 6:04 AM CDT - 02/18/2019 12:59 PM CDT Hospital Encounter [facility] ST Amb Care Interventional Unit [address] [address] Laverne Willoughby MD Department of Radiology [address] [place] [address] [facility] Tyra Alvarez MD [address] [place] [address] Grady Goldberg CRNA [address] [place] [address] Follow up Discharge Disposition: Home or Self Care Social [...] How often do you attend chur or church services? Never 08/21/2018 Do you [...] Sign Reading Time Taken Comments Blood Pressure 107/78 02/18/2019 12:46 PM CDT Pulse 88 02/18/2019 12:46 PM CDT Temperature 36.6 ??C (97.9 ??F) 02/18/2019 12:11 PM C DT Respiratory Rate 16 02/18/2019 12:11 PM CDT Oxygen Saturation 96% 02/18/2019 12:46 PM CDT Inhaled Oxygen Concentration - - Weight 89.1 kg (196 lb 8 oz) 02/18/2019 6:19 AM CDT Height 165.1 cm (5' 5 ) 02/18/2019 6:19 AM CDT Body Mass Index 32.7 02/18/2019 6:19 AM CDT documented in this encounter Discharge Instructions * Discharge Instructions* Tita Austin RN - 02/18/2019 11:06 AM CDT DISCHARGE INSTRUCTIONS DR. HOLGUIN / DR. JAMES/ DR. WILLOUGHBY POST CHESTPORT IMPLANTATION Instructions: 1. Do not [...] away or gets worse. ??? Please call [phone] with any questions or concerns regarding the procedure you had. documented in this encounter Medications at Time [...] as of this encounter Progress Notes * Tita Austin, RN - 02/18/2019 12:18 PM CDT C/o of pain, Dr Powell here , site ok to wait a short time to see if Rx helps * Tita Austin, RN - 02/18/2019 10:35 AM CDT Returned from procedure. Sleepy, but arouses to name. BS 219 Dr Brewster aware, BP low, But stable * Nora Agarwal RN - 02/18/2019 10:09 AM CDT Returned to [facility] via bed. Placed on monitors. Parul OLGUIN at bedside for report. Ice packs applied. * Nora Agarwal RN - 02/18/2019 10:07 AM CDT Pt transferred back to bed. Warm blankets applied. * Nora Agarwal RN - 02/18/2019 9:59 AM CDT Procedure complete. Dressings applied by Chalo SAENZ. Anesthesia present. * Nora Agarwal RN - 02/18/2019 9:50 AM CDT 9.6 fr power flow port placed by Dr. Powell using US and fluoro guidance. Anesthesia present. Dr. Powell suturing and accessing. * Nora Agarwal RN - 02/18/2019 9:[address] Andre mckinnonuring.Dr Powell accessing R chest powerflow port. Anesthesia present. Called donor room & talked with Sharri OLGUIN for extension tubing and caps to leave port accessed until treatment later. * Nora Agarwal RN - 02/18/2019 9:19 AM CDT Power flow port removed from R side by Dr. Powell using fluoro guidance. Anesthesia present. * Nora Agarwal RN - 02/18/2019 8:[address] Powell called and aware pt ready. * Nora Agarwal RN - 02/18/2019 8:34 AM CDT Pt arrived in xray 10 via bed. Pt transferred to procedure table supine and monitors applied. Assisted anesthesia with sedation. Airway & VS monitored per anesthesia. Pt prepped by Roman SAENZ. * Nora Agarwal RN - 02/18/2019 7:58 AM CDT To [facility] to talk with patient. Orders, allergies, NPO status and lab results verified. Waiting for pt to receive insulin. Dr. Powell at bedside and informed consent obtained. Anesthesia present. documented in this encounter H&P Notes * Michael Powell MD - 02/18/2019 10:19 AM CDT I have reviewed the patient's H&P from 02/02/2019 most recent encounter with Araceli Santo MD. I examined the patient in relation to the procedure the patient is about to undergo (ie. Focused exam). I do not note any significant changes that may be of any clinical relevance to the procedure the patient is about to undergo. Data Review: CBC: Lab Results Component Value Date/Time WBC 11.5 (H) 02/01/2019 10:15 PM RBC 4.19 02/01/2019 10:15 PM HEMOGLOBIN 12.0 02/01/2019 10:15 PM HEMATOCRIT 37.5 02/01/2019 10:15 PM PLATELETS 282 02/01/2019 10:15 PM Coagulation: Lab Results Component Value Date/Time PROTIME 14.1 11/14/2018 09:40 AM INR 1.1 11/14/2018 09:40 AM Sedation Protocol: Cleared for sedation: not applicable . Sedation protocol: [] IV [] No Sedation [x] Anesthesia provided by the department of anesthesia ASA CLASSIFICATION [] Class 1: Normal healthy patient [] Class 2: Patient with mild systemic disease [] Class 3: Patient with severe systemic disease* [] Class 4: Patient with severe systemic disease that is a constant threat to life [] Class 5: Moribund patient who is not expected to survive without the operation *Consider anesthesia consult See Administrative Policy 200.3 Diagnosis and Plan: Casandra Jones, 43 y.o. female with history of chylomicronemia, dysfunctional right port presenting for port replacement . After explaining the procedure, benefits and risks, included but not limited to bleeding, and or infection, informed written consent was obtained from the patient who expressed the wish to proceed with the procedure. documented in this encounter Plan of Treatment Upcoming Encounters Date Type Department Care Team (Late st Contact Info) Description 09/14/2024 3:00 PM CDT Office Visit [facility] Heart and Vascular - [place] [address] [place] [address] Marlys Mayer MD [address] [place] [address] documented as of this encounter Procedures Procedure Name Priority Date/Time Associated Diagnosis Comments IR VENOUS NECK Routine 02/18/2019 10:14 AM CDT Follow up POC GLUCOSE Routine 02/18/2019 10:14 AM CDT POC GLUCOSE Routine 02/18/2019 9:07 AM CDT POC GLUCOSE Routine 02/18/2019 6:37 AM CDT documented in this encounter Results * IR VENOUS NECK (02/18/2019 10:14 AM CDT) Anatomical Region Laterality Modality Neck X-Ray Angiograph y, Other 02/18/2019 10:1 4 AM CDT Impressions 02/19/2019 4:27 PM CDT IMPRESSION: ?? 1. Successful right chest wall port removal. 2. Successful left chest wall port placement. PLAN: Right and left chest ports are ready for immediate use. Please note that a power-injectable port was placed. DICTATION LOCATION: Location 1 - [facility] 02/19/2019 4:27 PM CDT EXAMINATION: 1. RIGHT PORT REMOVAL USING FLUOROSCOPIC GUIDANCE 2. LEFT PORT PLACEMENT USING ULTRASOUND AND FLUOROSCOPIC GUIDANCE HISTORY: 43 years-old Female with chylomicronemia, 2 right power flow ports, the lateralmost of which is nonfunctioning. ANESTHESIA: The procedure was performed with general anesthesia. SURGEON: Dr. Michael Powell MD FLUOROSCOPY: The fluoroscopy time Ft: 2.9 mins Dose: 25 mGy/ 935.25 uGym2. TECHNIQUE: The risks, benefits and alternatives were discussed and informed consent was obtained. Prior to beginning the procedure, [place] Protocol was performed to confirm the patient's identity and the planned procedure. Maximum sterile barriers including cap, mask, hand hygiene, sterile gloves, sterile gown, large sterile drape and 2% chlorhexidine for cutaneous antisepsis were used. Prior to the procedure, the central veins were evaluated by ultrasound, an image recorded and placed in the patient's chart. A fluoroscopic image was recorded prior to the beginning of the procedure. The skin adjacent to the lateral most right chest wall port was sterilely prepped, draped and infiltrated with 1% lidocaine. After making a short transverse incision, the port reservoir was freed using a combination of sharp and blunt dissection. ??The catheter was then removed. A fluoroscopic image was recorded following removal of the port in unchanged positions of medial right chest port. The deep tissues were approximated using ??4-0 V-Loc suture and the incision closed using skin glue. The skin over the left internal jugular vein was sterilely prepped, draped and infiltrated with 1% lidocaine. The vein was accessed with a 21 gauge needle using realtime ultrasound guidance. ??A guidewire and catheter were then passed centrally using fluoroscopic guidance. The intravascular length from the access site to the right atrium was then measured. After infiltrating the skin in the subclavicular region with 1% lidocaine, a short transverse incision was made and the pocket for the power flow port reservoir was formed by blunt dissection. The catheter was tunneled to the internal jugular access site, cut to the appropriate length and inserted through a peel-away sheath. ?? The subcutaneous pocket was then approximated using resorbable 4-0 V-Loc suture . Both the dermatotomy and venotomy were sealed using Dermabond. ESTIMATED BLOOD LOSS: < 30 cc. CONDITION: Stable. DISCHARGED TO: Recovery and then to home. FINDINGS: The port site showed no purulence or other evidence of infection. Initial fluoroscopic images show 2 right chest port is unchanged in position. Ultrasound image shows a patent vein in the lower left neck. The final fluoroscopic image demonstrates successful removal of lateral most right chest port without retained fragments. The existing medial right chest port is unchanged in position. New left chest port terminates with with its tip at the superior cavoatrial junction. ??No complications are seen. Procedure Note Michael Powell MD - 02/19/2019 EXAMINATION: 1. RIGHT PORT REMOVAL USING FLUOROSCOPIC GUIDANCE 2. LEFT PORT PLACEMENT USING ULTRASOUND AND FLUOROSCOPIC GUIDANCE HISTORY: 43 years-old Female with chylomicronemia, 2 right power flow ports, the lateralmost of which is nonfunctioning. ANESTHESIA: The procedure was performed with general anesthesia. SURGEON: Dr. Michael oPwell MD FLUOROSCOPY: The fluoroscopy time Ft: 2.9 mins Dose: 25 mGy/ 935.25 uGym2. TECHNIQUE: The risks, benefits and alternatives were discussed and informed consent was obtained. Prior to beginning the procedure, [place] Protocol was performed to confirm the patient's identity and the planned procedure. Maximum sterile barriers including cap, mask, hand hygiene, sterile gloves, sterile gown, large sterile drape and 2% chlorhexidine for cutaneous antisepsis were used. Prior to the procedure, the central veins were evaluated by ultrasound, an image recorded and placed in the patient's chart. A fluoroscopic image was recorded prior to the beginning of the procedure. The skin adjacent to the lateral most right chest wall port was sterilely prepped, draped and infiltrated with 1% lidocaine. After making a short transverse incision, the port reservoir was freed using a combination of sharp and blunt dissection. The catheter was then removed. A fluoroscopic image was recorded following removal of the port in unchanged positions of medial right chest port. The deep tissues were approximated using 4-0 V-Loc suture and the incision closed using skin glue. The skin over the left internal jugular vein was sterilely prepped, draped and infiltrated with 1% lidocaine. The vein was accessed with a 21 gauge needle using realtime ultrasound guidance. A guidewire and catheter were then passed centrally using fluoroscopic guidance. The intravascular length from the access site to the right atrium was then measured. After infiltrating the skin in the subclavicular region with 1% lidocaine, a short transverse incision was made and the pocket for the power flow port reservoir was formed by blunt dissection. The catheter was tunneled to the internal jugular access site, cut to the appropriate length and inserted through a peel-away sheath. The subcutaneous pocket was then approximated using resorbable 4-0 V-Loc suture . Both the dermatotomy and venotomy were sealed using Dermabond. ESTIMATED BLOOD LOSS: < 30 cc. CONDITION: Stable. DISCHARGED TO: Recovery and then to home. FINDINGS: The port site showed no purulence or other evidence of infection. Initial fluoroscopic images show 2 right chest port is unchanged in position. Ultrasound image shows a patent vein in the lower left neck. The final fluoroscopic image demonstrates successful removal of lateral most right chest port without retained fragments. The existing medial right chest port is unchanged in position. New left chest port terminates with with its tip at the superior cavoatrial junction. No complications are seen. IMPRESSION: 1. Successful right chest wall port removal. 2. Successful left chest wall port placement. PLAN: Right and left chest ports are ready for immediate use. Please note that a power-injectable port was placed. DICTATION LOCATION: Location 1 - [facility] Laverne Fartun CARNEY IR ORDERABLES * (ABNORMAL) POC GLUCOSE (02/18/2019 10:14 AM CDT) GLUCOSE POC 219(H) 74 - 99 mg/dL 02/18/2019 10:14 AM T [facility] [employer] [facility] AUTO VINYL TOP INSTALLER NAME POC TITA AUSTIN 02/18/2019 10:14 AM [facility] Whole blood specimen (specimen) 02/18/2019 10:14 AM CDT 02/18/2019 10:29 AM CDT Laverne Willoughby MD POINT OF CARE TESTJERONIMO Serrano Performing Organization Address [facility]/ZIP Co de Phone Number [facility] LABORATORY [facility] CLIA# [id number] [address] [place] [address] * (ABNORMAL) POC GLUCOSE (02/18/2019 9:07 AM CDT) GLUCOSE POC 238(H) 74 - 99 mg/dL 02/18/2019 9:07 AM CDT [facility] LAB[facility] - [facility] COMMENT, GLU POC Notified RN/MD 02/18/2019 9:07 AM CDT [facility] AUTO VINYL TOP INSTALLER NAME POC Scotty ELIZONDO 02/18/2019 9:07 AM CDT [facility]AT[facility] Whole blood specimen (specimen) 02/18/2019 9:07 AM CDT 02/18/2019 9:22 AM CDT Laverne Willoughby MD POINT OF CARE TESTJERONIMO Maggie Performing Organization Address [facility] Co de Phone Number [facility] [employer] [facility] CLIA# [id number] [address] [place] [address] * (ABNORMAL) POC GLUCOSE (02/18/2019 6:37 AM CDT) GLUCOSE POC 226(H) 74 - 99 mg/dL 02/18/2019 6:37 AM CDT [facility] AUTO VINYL TOP INSTALLER NAME POC TITA AUSTIN 02/18/2019 6:37 AM CDT [facility] Whole blood specimen (specimen) 02/18/2019 6:37 AM CDT 02/18/2019 6:49 AM CDT Laverne Willoughby MD POINT OF CARE FLY Serrano [facility] LABORATORY [facility]# [id number] [address] [place] [address] documented in this encounter Visit Diagnoses Diagnosis Follow up documented in this encounter Administered Medications Inactive Administered Medications - up to 3 most recent administrations Medication Order MAR Action Action Date Dose Rate Site HYDROcodone-acetaminophe n (NORCO) 5-325 mg per tablet 1 Tablet 1 Tablet, Oral, EVERY 4 HOURS PRN, Starting on Sat02/18/19 at 1014, Until Sat02/18/19 at 1335, Pain (See admin instructions), Routine Given 02/18/2019 11:47 AM CDT 1 Tablet insulin regular (HUMULIN R,NOVOLIN R) injection 4 Units 4 Units, subCUT, ONE TIME ONLY, 1 dose, On Sat02/18/19 at 0730, Routine, Pre-op Now Given 02/18/2019 8:30 AM CDT 4 Units Arm, Left Upper iopamidol (ISOVUE-300) 61 % injection 50 mL 50 mL, See Admin Instructions, INTRA-PROCEDURE ONCE, 1 dose, Starting on Sat02/18/19 at 0930, Until Sat02/18/19 at 1335, Routine documented in this encounter Active and Recently Administered Medications Times are shown in CDT. Scheduled Medication Order 02/16/2019 02/17/2019 02/18/2019 ceFAZolin (ANCEF) 2,000 mg in dextrose (iso-osmotic) 100 mL IVPB (PREMIX) (COMPLETED) 2,000 mg, IV, PRE-PROCEDURE ONCE, 1 dose, Starting on Sat02/18/19 at 0654, Until Sat02/18/19 at 0840, Routine, Antibiotic Indication: Surgical prophylaxis 0840 (Given - Provid er: Grady Goldberg CRNA) insulin regular (HUMULIN R,NOVOLIN R) injection 4 Units (COMPLETED) 4 Units, subCUT, ONE TIME ONLY, 1 dose, On Sat02/18/19 at 0730, Routine, Pre-op Now 0830 (Given - Provid er: Tita Austin RN) iopamidol (ISOVUE-300) 61 % injection 50 mL 50 mL, See Admin Instructions, INTRA-PROCEDURE ONCE, 1 dose, Starting on Sat02/18/19 at 0930, Until Sat02/18/19 at 1335, Routine PRN Medication Order 02/16/2019 02/17/2019 02/18/2019 HYDROcodone-acetaminophen (NORCO) 5-325 mg per tablet 1 Tablet 1 Tablet, Oral, EVERY 4 HOURS PRN, Starting on Sat02/18/19 at 1014, Until Sat02/18/19 at 1335, Pain (See admin instructions), Routine 1147 (Given - Provid er: Tita Austin RN) documented in this encounter Care Teams Air Director Relationship Specialty Start Date End Date Guerrero Middleton PA-C PCP - General Physician Spinner Frame 02/13/18 documented as of this encounter
--- OUTSIDE RECORDS SUMMARY | 2024-05-03 20:43 | XMS_ITS | Encounter Summary ---
Author Organization [facility] Address [address] [place] [address] Care Team Providers Care Livestock Yard Attendant Name Role Phone Guerrero Middleton PA-C Primary Care Provide r Reason for Referral * Radiology Services (Routine) - Closed Specialty Diagnoses / Procedures Referred By Contac t Referred To Contact Diagnoses Follow up Procedures IR VENOUS ACCESS Laverne Willoughby MD Department of Radiology [address] [place] [address] Referral ID Status Reason Start Date Expiration Date Visits Re quested Visits Authorized [id number] Closed 02/11/2019 03/13/2020 1 1 Reason for Visit * Radiology Services (Routine) - Closed Specialty Diagnoses / Procedures Referred By Contac t Referred To Contact Diagnoses Follow up Procedures IR VENOUS ACCESS Laverne Willoughby MD Department of Radiology [address] [place] [address] Referral ID Status Reason Start Date Expiration Date Visits Re quested Visits Authorized [id number] Closed 02/11/2019 03/13/2020 1 1 Encounter Details Date Type Department Care Team (Latest Contact Info) Description 02/11/2019 10:48 AM CDT - 02/11/2019 11:59 PM CDT Hospital Encounter [facility] Interventional Radiology [address] [place] [address] Laverne Willoughby MD Department of Radiology [address] [place] [address] Discharge Disposition: Home or Self Care Social [...] How often do you attend chur or gnosticist services? Never 08/21/2018 Do you [...] Progress Notes * Daniel Whitehead RN - 02/11/2019 12:00 PM CDT Successful heparin flush obtained on distal BARD port per protocol. Medial BARD port was accessed in IR and was unable to be flushed or aspirated for heparin flush, Dr. Arteaga notified. Patient was given 600 mg Ibuprofen due to pain at site. Patient was de-accessed successfully, sterile occlusive dressing applied. No bleeding noted at discharge. Patient is alert and oriented x 4. documented in this encounter Plan of Treatment Upcoming Encounters Date Type Department Care Team (Late st Contact Info) Description 09/14/2024 3:00 PM CDT Office Visit [facility] [address] [place] [address] Marlys Mayer MD [address] [place] [address] documented as of this encounter Procedures Procedure Name Priority Date/Time Associated Diagnosis Comments IR VENOUS ACCESS Routine 02/11/2019 11:2 1 AM CDT Follow up documented in this encounter Results * IR VENOUS ACCESS (02/11/2019 11:21 AM CDT) Anatomical Region Laterality Modality X-Ray Angiograph y 02/11/2019 11:2 1 AM CDT Impressions 02/13/2019 11:47 AM CDT IMPRESSION: Malfunctioning power flow port as described above in need of removal and replacement. DICTATION LOCATION: Location 1 - [facility] Narrative 02/13/2019 11:47 AM CDT PORT DYE STUDY 02/12/2016 HISTORY: 43-year-old female with history of mixed hyperlipidemia on chronic pheresis presenting for evaluation of indwelling subcutaneous power flow ports. SURGEON: Laverne Willoughby M.D. ANESTHESIA: 1% lidocaine was infiltrated locally. PROCEDURE: Two separate subcutaneous ports were identified. The medially placed port was accessed successfully and proper aspiration and injection were obtained. The laterally and more superior port was accessed without difficulty. Forward injection could be accomplished, however aspiration was very limited. The position of the ports and tips appear unremarkable. The need for replacement of the laterally placed port was discussed with the patient and referring physician. The patient tolerated the procedure well. Procedure Note Laverne Willoughby MD - 02/13/2019 PORT DYE STUDY 02/12/2016 HISTORY: 43-year-old female with history of mixed hyperlipidemia on chronic pheresis presenting for evaluation of indwelling subcutaneous power flow ports. SURGEON: Laverne Willoughby M.D. ANESTHESIA: 1% lidocaine was infiltrated locally. PROCEDURE: Two separate subcutaneous ports were identified. The medially placed port was accessed successfully and proper aspiration and injection were obtained. The laterally and more superior port was accessed without difficulty. Forward injection could be accomplished, however aspiration was very limited. The position of the ports and tips appear unremarkable. The need for replacement of the laterally placed port was discussed with the patient and referring physician. The patient tolerated the procedure well. IMPRESSION: Malfunctioning power flow port as described above in need of removal and replacement. DICTATION LOCATION: Location [address] [place] [address] Laverne Willoughby MD IR ORDERABLES documented in this encounter Visit Diagnoses Diagnosis Follow up documented in this encounter Administered Medications Inactive Administered Medications - up to 3 most recent administrations Medication Order MAR Action Action Date Dose Rate Site heparin injection 2,000 Units 2,000 Units, Dwell, ONE TIME ONLY, 1 dose, On Sat02/11/19 at 1200, Stat, Please tube to station [id number], blood bank Given 02/11/2019 12:14 PM CDT 2,000 Units Chest, Left ibuprofen (MOTRIN) tablet 600 mg 600 mg, Oral, ONE TIME ONLY, 1 dose, On Sat02/11/19 at 1200, Stat Given 02/11/2019 12:12 PM CDT 600 mg iopamidol (ISOVUE-300) 61 % injection 50 mL 50 mL, See Admin Instructions, INTRA-PROCEDURE ONCE, 1 dose, Starting on Sat02/11/19 at 1112, Until Sat02/11/19 at 1112, Routine Contrast Given 02/11/2019 11:12 AM CDT 50 mL Operative Site documented in this encounter Care Teams Livestock Yard Attendant Relationship Specialty Start Date End Date Guerrero Middleton PA-C PCP - General Physician Zoo Keeper 02/13/18 documented as of this encounter
--- OUTSIDE RECORDS SUMMARY | 2024-05-03 20:44 | XMS_ITS | Encounter Summary ---
Author Organization [facility] Address [address] [place] [address] Care Team Providers Care Downstream Biomanufacturing Technician Name Role Phone Guerrero Middleton PA-C Primary Care Provide r Reason for Visit * Reason Onset Date Comments Appointment with Dr. Rudd 10/28/2018 Encounter Details Date Type Department Care Team (Late st Contact Info) Description 10/28/2018 Telephone [facility] Heart and Vascular At [address] [place] [address] Marlys Mayer MD [address] [place] [address] [address] [place] [address] Rudd Social History Tobacco Use Types Packs/Day Years [...] any clubs o r organizations such as yarsanism groups, unions, fraternal or athletic groups, or [...] encounter Miscellaneous Notes * Telephone Encounter - Vaishali Mitchell - 10/28/2018 2:[address] uRdd approved the port, is calling Dr. Knutson and is having pt go to ED. Pt states that Dr. Mayer asked to be advised if pt went to ED. Please call patient at [phone]. Thank you. * Telephone Encounter - Alexandra Kahn RN - 10/28/2018 8:38 AM CDT Called patient, reminding her to keep appointment with as they will be discussing her diet and a port for plasmapheresis, verbalized understanding. Aware appointment is at 2 PM today documented in this encounter Plan of Treatment Upcoming Encounters Date Type Department Care Team (Late st Contact Info) Description 09/14/2024 3:00 PM CDT Office Visit [facility] - [place] [address] [address] [place] [address] Marlys Mayer MD [address] [place] [address] documented as of this encounter Visit Diagnoses Not on filedocumented in this encounter Care Teams Downstream Biomanufacturing Technician Relationship Specialty Start Date End Date Guerrero Middleton PA-C PCP - General Physician Certified Medical Asst 02/13/18 documented as of this encounter
--- OUTSIDE RECORDS SUMMARY | 2024-05-03 20:44 | XMS_ITS | Encounter Summary ---
Author Organization [facility] Address [address] [place] [address] Care Team Providers Care V Block Saw Operator Name Role Phone Guerrero Middleton PA-C Primary Care Provide r Reason for Visit * Auth/Cert Specialty Diagnoses / Procedures Referred By Contac t Referred To Contact Critical Care Medicine [facility] [address] [place] [address] Referral ID Status Reason Start Date Expiration Date Visits Re quested Visits Authorized [id number] 1 1 Encounter Details Date Type Department Care Team (Late st Contact Info) Description 10/29/2018 10:58 AM CDT Anesthesia Event [facility] Interventional Radiology [facility] [address] [place] [address] Tyra Lugo MD [address] [place] [address] Anesthesia Record Procedure Summary Procedure Name Responsible Anesthesiologist Anesthesia Start Time Anesthesia Stop Time IR VENOUS NECK Tyra Lugo MD 10/29/18 1058 1213 Events Date Time Event Comment 10/29/2018 1046 AN Equip Check Anesthesia eq uipment and materials checked in accordance with local policy. 1050 1058 An Start 1058 An Start Data 1058 Quick Note Floor nurse in room with patient checking glucose and changing insulin infusion per orders. 1106 Pre-Induction Immediate pre- induction anesthetic assessment performed. Vital signs as noted on graphic. 1106 An Induction 1107 Anesthesia Ready 1213 an stop data 1213 An Stop Meds Name Total lidocaine PF (XYLOCAINE MPF) 20 mg/mL sy ringe 60 mg fentaNYL (SUBLIMAZE) PF 50??mcg/mL injec tion 100 mcg propofol (DIPRIVAN) 10??mg/mL injection 50 mg propofol (DIPRIVAN) 10??mg/mL injection 476.82 mg ceFAZolin (ANCEF) 2,000 mg in dextrose ( iso-osmotic) 100 mL IVPB (PREMIX) 2,000 mg glycopyrrolate (ROBINUL) 0.2 mg/ mL inje ction 0.2 mg ketamine (KETALAR) 50??mg/mL injection 1 0 mg ondansetron (ZOFRAN) 4??mg/2 mL injectio n 4 mg lactated ringers infusion 600 mL * Agents Name Desflurane % Desflurane O2 N2O Inspired N2O O2 * Blood No blood administrations on file. Lines, Drains, and Airways Type Details Placement Removal Peripheral IV Pre-Hospital Start: No; Orientation: Right; Location: (Bicept); Device: Angiocath; Gauge: 20 gauge; Needle Length: 1 in length; Patient Tolerance: tolerated well, appears comfortable; Removal Indication: no longer indicated 10/28/18 1557 by Karen Hassan RN 10/31/18 1500 by Susan Booker RN Peripheral IV Orientation: Right, Lower; Location: Arm; Gauge: 22 gauge; Needle Length: 1 in length; Insertion Attempts: 1 (plus 3 other attempts per floor RNs); Patient Tolerance: tolerated well; Removal Indication: no longer indicated 10/28/18 1930 by Bibiana Kahn RN 10/31/18 1500 by Susan Booker RN Supraglottic Airway Type: simple mask; Confirmation: satisfactory chest rise, SAO2, end tidal CO2 10/29/18 1105 by Michael Cardenas AA-C 11/01/18 0307 by PROVIDER, DISCHARGE PATIENT Vascular Access Port 10/29/18; 1132; No; Right:; (right IJ); top entry; (9.5 Fr); 02/04/19 (Never Accessed ); 1518 10/29/18 1132 by Aura Parks RN 02/04/19 1518 by Susan Randall RN Vascular Access Port 10/29/18; 1135; No; Right:; (Right IJ); top entry; 02/19/20; observed not present 10/29/18 1135 by Aura Parks RN documented in this encounter Social History [...] How often do you attend chur or oriental orthodox services? Never 08/21/2018 Do [...] OR Notes * Anesthesia Postprocedure Evaluation - Michael Cardenas AA-C - 10/29/2018 12:14 PM CDT Post Anesthesia Evaluation Vitals: See handoff note Vitals Value Taken Time BP Temp Resp SpO2 Pulse Heart Rate Pain Rating: Pain Rating: Rest: 6 (10/29/18 0807) Anesthesia Post Evaluation Patient location: IR. Patient participation: patient was able to participate in the post op evaluation Level of consciousness: 0 = alert, responsive, answers simple questions appropriately, able to perform simple tasks Pain management: adequate Airway patency: patent Nausea or Vomiting: none Anesthetic complications: no Cardiovascular status: regular rate and rhythm Respiratory status: no respiratory symptoms Hydration status: well hydrated NOREEN Hernandez * Anesthesia Handoff - Michael Cardenas AA-C - 10/29/2018 12:13 PM CDT Post-Anesthetic transfer of care report elements [...] and acknowledgement of understanding. Vital Signs: BP: 116/67 Pulse: 97 SpO2: 94% Resp: 16 12:14 PM NOREEN Hernandez * Anesthesia Preprocedure Evaluation - Tyra Lugo MD - 10/29/2018 10:45 AM CDT Relevant Problems No relevant active problems Anesthesia Evaluation Patient summary reviewed and Nursing notes reviewed Airway Mallampati: III TM distance: >3 FB Neck ROM: full Dental - normal exam Pulmonary - normal exam ROS comment: Smoking 18 pack years, marijuana Cardiovascular - normal exam (+) hypertension, ROS comment: HLD Hypertriglyceridemia ECG 11/14- SR, borderline T nO CP, SOB 1 FOS ET Neuro/Psych (+) TIA (6 years ago, right -sided weakness), psychiatric history GI/Hepatic/Renal (+) GERD well controlled, Comments: Pancreatitis- Chilomicronemia syndrome- for plasmapheresis Endo/Other (+) diabetes mellitus (metabolic syndrome) type 2, hypothyroidism, Comments: PCOS Abdominal (+) obese, Anesthesia History No history of anesthetic complications. Anesthesia Plan ASA Final: 3 MAC N/A induction NPO status > 8 hours Anesthetic plan and risks discussed with Patient. Use of blood products: consented to blood products. Plan discussed with Anesthesiologist Typesetting Machine Operator/Tender. Smoking Compliance Patient did not smoke on day of surgery documented in this encounter Plan of Treatment Upcoming Encounters Date Type Department Care Team (Late st Contact Info) Description 09/14/2024 3:00 PM CDT Office Visit [facility] - [facility] [address] [place] [address] Marlys Mayer MD [address] [place] [address] documented as of this encounter Visit Diagnoses Not on filedocumented in this encounter Administered Medications Inactive Administered Medications - up to 3 most recent administrations Medication Order MAR Action Action Date Dose Rate Site ceFAZolin (ANCEF) 2,000 mg in dextrose (iso-osmotic) 100 mL IVPB (PREMIX) 2,000 mg, IV, PRE-PROCEDURE ONCE, 1 dose, Starting on Sat10/29/18 at 0740, Until Sat10/29/18 at 1117, Routine, Antibiotic Indication: Surgical prophylaxis Given 10/29/2018 11:07 AM CDT 2,000 mg fentaNYL PF (SUBLIMAZE) 50 mcg/mL injection INTRA-PROCEDURE PRN, Starting on Sat10/29/18 at 1106, Until Sat10/29/18 at 1213, Routine, Anesthesia Intra-op Given 10/29/2018 11:18 AM CDT 50 mcg Given 10/29/2018 11:06 AM CDT 50 mcg glycopyrrolate (ROBINUL) injection INTRA-PROCEDURE PRN, Starting on Sat10/29/18 at 1120, Until Sat10/29/18 at 1213, Routine, Anesthesia Intra-op Given 10/29/2018 11:20 AM CDT 0.2 mg ketamine (KETALAR) 50 mg/mL injection INTRA-PROCEDURE PRN, Starting on Sat10/29/18 at 1122, Until Sat10/29/18 at 1213, Routine, Anesthesia Intra-op Given 10/29/2018 11:22 AM CDT 10 mg lactated ringers infusion INTRA-PROCEDURE CONTINUOUS PRN, Starting on Sat10/29/18 at 1058, Until Sat10/29/18 at 1213, Routine, Anesthesia Intra-op New Bag 10/29/2018 10:58 AM CDT lidocaine PF (XYLOCAINE MPF) 100 mg/5 mL (2 %) injection INTRA-PROCEDURE PRN, Starting on Sat10/29/18 at 1106, Until Sat10/29/18 at 1213, Routine, Anesthesia Intra-op Given 10/29/2018 11:06 AM CDT 60 mg ondansetron (ZOFRAN) 4 mg/2 mL injection INTRA-PROCEDURE PRN, Starting on Sat10/29/18 at 1129, Until Sat10/29/18 at 1213, Routine, Anesthesia Intra-op Given 10/29/2018 11:29 AM CDT 4 mg propofol (DIPRIVAN) injection INTRA-PROCEDURE CONTINUOUS PRN, Starting on Sat10/29/18 at 1106, Until Sat10/29/18 at 1213, Anesthesia Intra-op New Bag 10/29/2018 11:06 AM CDT 100 mcg/kg/min 52.98 mL/hr propofol (DIPRIVAN) injection INTRA-PROCEDURE PRN, Starting on Sat10/29/18 at 1106, Until Sat10/29/18 at 1213, Anesthesia Intra-op Given 10/29/2018 11:06 AM CDT 50 mg documented in this encounter Care Teams V Block Saw Operator Relationship Specialty Start Date End Date Guerrero Middleton PA-C PCP - General Physician Typesetting Machine Operator/Tender 02/13/18 documented as of this encounter
--- OUTSIDE RECORDS SUMMARY | 2024-05-03 20:44 | XMS_ITS | Encounter Summary ---
Author Organization [facility] Address [address] [place] [address] Care Team Providers Care Supervisor Brine Name Role Phone Guerrero Middleton PA-C Primary Care Provide r Reason for Visit * Reason Onset Date Comments Erroneous encounter-disregard 09/30/2018 Encounter Details Date Type Department Care Team (Late st Contact Info) Description 09/30/2018 Telephone [facility] [place] [address] [address] [place] [address] Marlys Mayer MD [address] [place] [address] [address] [place] [address] Erroneous encounter-disregard Social History Tobacco Use Types Packs/Day Years [...] 09/14/2024 3:00 PM CDT Office Visit [facility] Heart and [facility] - [facility] [address] [place] [address] Marlys Mayer MD [address] [place] [address] documented as of this encounter Visit Diagnoses Not on filedocumented in this encounter Care Teams Supervisor Brine Relationship Specialty Start Date End Date Guerrero Middleton PA-C PCP - General Physician Elementary Science Teacher 02/13/18 documented as of this encounter
--- OUTSIDE RECORDS SUMMARY | 2024-05-03 20:44 | XMS_ITS | Encounter Summary ---
Author Organization [facility] Address [address] [place] [address] Care Team Providers Care Inspector Packer Glass Container Name Role Phone Guerrero Middleton PA-C Primary Care Provide r Reason for Visit * Reason Onset Date Comments Erroneous encounter-disregard 12/10/2018 Encounter Details Date Type Department Care Team (Late st Contact Info) Description 12/10/2018 Telephone [facility] Endocrinology [address] [place] [address] Blake Rudd MD NO ADDRESS ON FILE Erroneous encounter-disregard Social History Tobacco Use Types [...] encounter Miscellaneous Notes * Telephone Encounter - Blake Rudd MD - 12/10/2018 10:17 PM CDT documented in this encounter Plan of Treatment Upcoming Encounters Date Type Department Care Team (Late st Contact Info) Description 09/14/2024 3:00 PM CDT Office Visit [facility] Heart and Vascular - [place] [address] [place] [address] Marlys Mayer MD [address] [place] [address] documented as of this encounter Visit Diagnoses Not on filedocumented in this encounter Care Teams Inspector Packer Glass Container Relationship Specialty Start Date End Date Guerrero Middleton PA-C PCP - General Physician Cardiac Cath Technician 02/13/18 documented as of this encounter
--- OUTSIDE RECORDS SUMMARY | 2024-05-03 20:44 | XMS_ITS | Encounter Summary ---
Author Organization [facility] Address [address] [place] [address] Care Team Providers Care Bonus Clerk Name Role Phone Guerrero Middleton PA-C Primary Care Provide r Encounter Details Date Type Department Care Team (Late st Contact Info) Description 10/23/2018 Orders Only [facility] Heart and Vascular At [facility] [address] [place] [address] Marlys Mayer MD [address] [facility] [address] [place] [address] Hypertriglyceridemia Social History Tobacco Use Types Packs/Day Years [...] [facility] - [place] [address] [place] [address] Marlys Mayer MD [address] [place] [address] documented as of this encounter Procedures Procedure Name Priority Date/Time Associated Diagnosis Comments LIPID PANEL Routine 10/22/2018 Hypertriglyceridemia documented in this encounter Results * LIPID PANEL (10/22/2018) Blood Marlys Mayer MD CHEMISTRY ORDERABLES [facility]# [id number] [address] [facility] [address] [place] [address] documented in this encounter Visit Diagnoses Diagnosis Hypertriglyceridemia Pure hyperglyceridemia documented in this encounter Care Teams Bonus Clerk Relationship Specialty Start Date End Date Guerrero Middleton PA-C PCP - General Physician Produce Field Merchandiser 02/13/18 documented as of this encounter
--- OUTSIDE RECORDS SUMMARY | 2024-05-03 20:44 | XMS_ITS | Encounter Summary ---
Author Organization [facility] Address [address] [place] [address] Care Team Providers Care Prosecuting Attorney Name Role Phone Guerrero Middleton PA-C Primary Care Provide r Reason for Visit * Reason Onset Date Comments tx for elevated triglycerides 10/24/2018 Encounter Details Date Type Department Care Team (Late st Contact Info) Description 10/24/2018 Telephone [facility] Heart and Vascular At [facility] [address] [place] [address] Marlys Myaer MD [address] [place] [address] [address] [place] [address] tx for elevated triglycerides Social History Tobacco Use Types Packs/Day Years [...] encounter Miscellaneous Notes * Telephone Encounter - Alexandra Kahn RN - 10/24/2018 9:54 AM CDT Called and spoke with Ratna and Dr. Osorio's office asking if received the email sent regarding this patient on June 19, 2018. We were asking if Dr. Osorio had any treatment options for this patient. Referral has been placed and patient will make appointment if there are any treatment options. At this time we are going to do outpatient plasmapheresis every two weeks Ratna assured me that would not respond to an email about the patient since pt has not been seen at [facility]. And if we sent the email that long ago she is sure it is long gone. Ratna stated Dr. Mayer would have to call her herself and if was available she would connect her. Requested that Ratna check with Dr. Osorio regarding email, it did not sound like she would do that. Resent previous email with discharge note from 3 admissions, Dr. Mayer's note, most recent lipid panel-hospital discharge note-Dr. Mayer's note to [email or web address], Ratna confirm this is Dr. Osorio's [email or web address] documented in this encounter Plan of Treatment Upcoming Encounters Date Type Department Care Team (Late st Contact Info) Description 09/14/2024 3:00 PM CDT Office Visit [facility] Heart and Vascular - [facility] [address] [place] [address] Marlys Mayer MD [address] [place] [address] documented as of this encounter Visit Diagnoses Not on filedocumented in this encounter Care Teams Prosecuting Attorney Relationship Specialty Start Date End Date Guerrero Middleton PA-C PCP - General Physician Saute Chef 02/13/18 documented as of this encounter
--- OUTSIDE RECORDS SUMMARY | 2024-05-03 20:44 | XMS_ITS | Encounter Summary ---
Author Organization [facility] Address [address] [place] [address] Care Team Providers Care Bakery Deliverer Name Role Phone Guerrero Middleton PA-C Primary Care Provide r Encounter Details Date Type Department Care Team (Late st Contact Info) Description 08/19/2018 Abstract [facility] Endocrinology [address] [place] [address] Blake Rudd MD NO ADDRESS [...] [facility] Heart [facility] - [place] [address] [place] [address] Marlys Mayer MD [address] [place] [address] documented as of this encounter Visit Diagnoses Not on filedocumented in this encounter Care Teams Bakery Deliverer Relationship Specialty Start Date End Date Guerrero Middleton PA-C PCP - General Physician Crane Operator Cab 02/13/18 documented as of this encounter
--- OUTSIDE RECORDS SUMMARY | 2024-05-03 20:44 | XMS_ITS | Encounter Summary ---
Author Organization [facility] Address [address] [place] [address] Care Team Providers Care Intensive Care Anaesthetist Name Role Phone Guerrero Middleton PA-C Primary Care Provide r Reason for Visit * Reason Comments Diabetes Rx refill Encounter Details Date Type Department Care Team (Late st Contact Info) Description 10/28/2018 2:00 PM CDT Office Visit [facility] Endocrinology [address] [place] [address] Blake Rudd MD NO ADDRESS ON FILE Type 2 diabetes mellitus with hyperglycemia, with long-term current use of insulin (Primary Dx); Acquired hypothyroidism; Hypertriglyceridemia; Pancreatitis, recurrent Social History [...] Reading Time Taken Comments Blood Pressure 124/84 10/28/2018 1:59 PM CDT Pulse 99 10/28/2018 1:59 PM CDT Temperature - - Respiratory Rate - - Oxygen Saturation - - Inhaled Oxygen Concentration - - Weight 89.4 kg (197 lb) 10/28/2018 1:59 PM CDT Height 165.1 cm (5' 5 ) 10/28/2018 1:59 PM CDT Body Mass Index 32.78 10/28/2018 1:59 PM CDT documented in this encounter Progress Notes * Blake Rudd MD - 10/28/2018 2:06 PM CDT [facility] Endocrinology PCP: Guerrero Middleton PA-C NAME: Casandra Jones : 1975 Reason for visit: hyperTG, T2DM Subjective: Casandra Jones was referred for consultation by Dr. Mayer for advice and opinion regarding DM, hyperTG. Casandra Jones is a 42 y.o. female with a history of hyperTG, [...] for bimonthly pheresis She is going to [facility] in the coming weeks for evaluation. She is requesting pain to either go the ED or get pain meds. She is compliant with insulin regimen lantus 28 in AM and 38 in PM Humalog 8 with breakfast, 16 with lunch, 22 with dinner Review of Systems: Gen: denies fever chills [...] Outpatient Medications Medication Sig Dispense Refill ??? levothyroxine 200 mcg tablet Take 1 Tablet by mouth daily without food in the morning 30 minutes before eating anything. 30 Tablet 0 ??? HYDROcodone-acetaminophen (NORCO) 5-325 mg tablet Take 1 Tablet by mouth every 6 hours as needed for Pain, Severe. Max Daily Amount: 4 Tablets 10 Tablet 0 ??? dicyclomine (BENTYL) 10 mg capsule Take 1 Capsule by mouth 4 times daily. 60 Capsule 0 ??? omega-3 fatty acids-fish oil 300-1,000 mg Capsule Take 2 Capsules by mouth 2 times daily. ??? metFORMIN (GLUCOPHAGE) 500 mg tablet Take 2 Tablets by mouth 2 times daily with meals. 60 Tablet 0 ??? insulin aspart (NovoLOG) 100 unit/mL injection Inject 1 Units by subcutaneous injection AM : 14u Lunch: 16 u PM : 22 u . ??? dqbvrac-edujst-yjglufmr DR (CREON) 60-12-38 capsule Take 2 Capsules by mouth 4 times daily withmeals and at bedtime. ??? ondansetron (ZOFRAN ODT) 4 mg Tablet, Rapid Dissolve Dissolve 1 tablet on top of tongue, then swallow with saliva every 6 hours as needed for nausea/vomiting. 30 Tablet 0 ??? insulin glargine (LANTUS) 100 unit/mL injection Inject 28 Units by subcutaneous injection 2 times daily 28 units in the AM 38 units in the PM. ??? pantoprazole (PROTONIX) 40 mg Tablet, Delayed Release (E.C.) Take 40 mg by mouth 2 times daily . ??? traZODone (DESYREL) 100 mg tablet Take 100 mg by mouth daily at bedtime . ??? spironolactone (ALDACTONE) 25 mg tablet Take 25 mg by mouth daily. ??? rosuvastatin (CRESTOR) 20 mg tablet Take [...] No current facility-administered medications for this visit. Social History: Social History Socioeconomic History ??? Marital status: Spouse name: Not on file ??? Number of children: Not on file ??? Years of education: Not on file ??? Highest education level: Not on file Occupational History Employer: [employer] Social Needs ??? Financial resource strain: Not [...] Gets together: Three times a week Attends islam service: Never Active member of club or [...] Medical History: Diagnosis Date ??? Anxiety ??? Depression ??? Diabetes mellitus ??? DM [...] TUNNELED VENOUS CATHETER PLACEMENT Right 09/29/2018 ??? [place] ESOPHAGOGASTRODUODENOSCOPY TRANSORAL DIAGNOSTIC N/A 03/08/2018 ESOPHAGOGASTRODUODENOSCOPY performed by Ceasar Vega MD at [facility] GI [facility] Physical Findings: No results found for this visit on 10/28/18. Wt Readings from Last 3 Encounters: 10/28/18 89.4 kg (197 lb) 10/23/18 88 kg (194 lb) 10/01/18 89.6 kg (197 lb 9.6 oz) Physical Exam: BP 124/84 Pulse 99 Ht 5' 5 (1.651 m) Wt 89.4 kg (197 lb) BMI 32.78 kg/m?? GEN: well-nourished, NAD HEENT: normocephalic, autramatic; [...] Lab Results Component Value Date/Time SODIUM 139 10/02/2018 05:00 AM POTASSIUM 3.7 10/02/2018 05:00 AM CHLORIDE 105 10/02/2018 05:00 AM CO2 24 10/02/2018 05:00 AM CALCIUM 8.6 10/02/2018 05:00 AM BUN 4 (L) 10/02/2018 05:00 AM CREATININE 0.49 (L) 10/02/2018 05:00 AM GLUCOSE 167 (H) 10/02/2018 05:00 AM TOTAL PROTEIN 5.9 (L) 09/29/2018 04:10 AM ALBUMIN 3.4 (L) 09/29/2018 04:10 AM BILIRUBIN TOTAL <0.2 (L) 09/29/2018 04:10 AM ALKALINE PHOSPHATASE 83 09/29/2018 04:10 AM AST 09/29/2018 04:10 AM Comment: Unable to evaluate due to lipemia and interference on analyzer. ALT 09/29/2018 04:10 AM Comment: Unable to evaluate due to lipemia and interference on analyzer. Lab Results Component Value Date/Time CHOLESTEROL 458 (H) 07/29/2018 10:56 PM HDL 07/29/2018 10:56 PM Comment: Measured HDL is not accurate when the Triglyceride value exceeds 1200. LDL CALCULATED 07/29/2018 10:56 PM Comment: Calculated LDL is not accurate when the Triglyceride value exceeds 400. LDL CHOLESTEROL, DIRECT 110 08/10/2011 07:21 AM TRIGLYCERIDE 478 (H) 10/02/2018 05:00 AM Lab Results Component Value Date/Time WBC 7.5 10/02/2018 05:00 AM HEMOGLOBIN 11.1 (L) 10/02/2018 05:00 AM HEMATOCRIT 33.9 (L) 10/02/2018 05:00 AM PLATELETS 159 10/02/2018 05:00 AM MCV 89.2 10/02/2018 05:00 AM Lab Results Component Value Date/Time HEMOGLOBIN A1C 7.7 (H) 06/29/2018 08:17 PM Lab Results Component Value Date/Time TSH 4.04 05/16/2018 09:38 PM Assessment/Plan: 1. Type 2 diabetes mellitus with hyperglycemia, with long-term current use of insulin Poorly controlled based on reported glucoses and A1C but doing better. I discussed initiation of anSGLT2 inh to achieve better glycemic control but she was hesitant to start this. Continue current insulin regimen for now. Labs ordered for repeat A1C 2. Acquired hypothyroidism Last TSH wnl on 200mcg Lt4 daily 3. Hypertriglyceridemia This is severe. She is having abd pain and is not able to manage at this time with meds, diabetes control, and diet. She will have port placed for bimonthly pheresis. While this is not optimal, I'm not certain other options exist. Dr. Arteaga and Rickyk on board with this plan. She is having abdpain today and requests to go to ED to expedite procedure or get pain meds. No pain meds provided so she will go to ED. In interim, will continue current med regimen (fibrate, niacin, fish oil,statin). 4. Pancreatitis, recurrent We need to improve her diabetes control and TG levels in an effort to prevent recurrence. As above,bimonthly pheresis. 5. obesity Body mass index is 32.78 kg/m??. RTC: 3mo Patient agrees with plan and verbalizes understanding. Thank you for allowing me to participated in the care of this patient. Please feel free to contact me with any questions. Blake Rudd MD PhD documented in this encounter Plan of Treatment Upcoming Encounters Date Type Department Care Team (Late st Contact Info) Description 09/14/2024 3:00 PM CDT Office Visit [facility] Heart and Vascular - [facility] [address] [place] [address] Marlys Mayer MD [address] [place] [address] documented as of this encounter Visit Diagnoses Diagnosis Type 2 diabetes mellitus with hyperglycemia, with long-term current use of insulin- Primary Acquired hypothyroidism Unspecified hypothyroidism Hypertriglyceridemia Pure hyperglyceridemia Pancreatitis, recurrent Chronic pancreatitis documented in this encounter Care Teams Intensive Care Anaesthetist Relationship Specialty Start Date End Date Guerrero Middleton PA-C PCP - General Physician Deputy Chief Sheriff 02/13/18 documented as of this encounter
--- OUTSIDE RECORDS SUMMARY | 2024-05-03 20:44 | XMS_ITS | Encounter Summary ---
Author Organization [facility] Address [address] [place] [address] Care Team Providers Care Bait Digger Name Role Phone Guerrero Middleton PA-C Primary Care Provide r Encounter Details Date Type Department Care Team (Latest Contact Info) Description 11/13/2018 9:56 AM CDT - 11/13/2018 11:59 PM T Hospital Encounter [facility] [address] [place] [address] Marlys Mayer MD [address] [place] [address] Discharge Disposition: Home or Self Care Social [...] How often do you attend chur or restorationism services? Never 08/21/2018 Do you [...] Sign Reading Time Taken Comments Blood Pressure 106/75 11/13/2018 11:41 AM CDT Pulse 92 11/13/2018 11:41 AM CDT Temperature 36.9 ??C (98.4 ??F) 11/13/2018 11:41 AM C DT Respiratory Rate 16 11/13/2018 11:41 AM CDT Oxygen Saturation - - Inhaled [...] Progress Notes * Alize Arteaga MD - 11/13/2018 3:45 PM CDT CC: ??42 yo female with hypertriglyceridemia associated??with??recurrent necrotizing pancreatitis initiated on prophylactic plasma exchange for prevention of hypertriglyceridemic pancreatitis starting 11/12/18.??(ASFA category III indication for apheresis). ?? HPI: ??Was doing okay in interval since discharge, but feels generally unwell in past few days. Denies abdominal pain, nausea. ?? PMH: ??Hypertriglyceridemia (associated with prior episodes of pancreatitis, received inpatient plasma exchanges 04/2018, 07/2018 and 09/2018), DM, anxiety, GERG, HLD, hypothyroidism, PCOS ?? Meds: as per EPIC. ?? Exam: ??Patient resting in chair. ??Ports accessed in chest??with clear dressing in place. ??No erythema, induration or drainage observed. ?? Labs: triglycerides??3,668 (pre-procedure) ?? A&P: 1. 42 yo female with recurrent hypertriglyceridemic pancreatitis requires prophylactic plasma exchange. 2. ??We will perform a 1.0 volume plasma exchange with all albumin replacement with 100% fluid balance with 2 g calcium gluconate over the procedure. 3.??Per Drs. Rudd and Moreno, goal triglycerides <500. 4. Patient reports feeling generally unwell and triglycerides are markedly elevated. Case discussedwith Dr. Rudd 11/12/18. Plan to increase frequency of plasma exchanges to get to goal. Plan to perform PLEX 11/13/18, 11/14/18 as outpatient, then twice the week of 11/17/18 and once per week x 4 weeks. We will obtain triglycerides prior to each procedure. We may need to modify plan based on triglyceride results. ? Procedure #2: ??Patient still feels generally unwell. No specific nausea or abdominal pain. Patienttolerated the procedure well. ? I have seen and examined the patient, reviewed pertinent notes and records, and remained immediately available throughout the procedure. ?? Alize Arteaga MD, PhD [employer] Scoreboard Operator, therapeutic apheresis service [phone] * Daniel Whitehead, RN - 11/13/2018 12:29 PM CDT Plasma exchange completed today using right chest BARD ports for draw and return. Medial BARD port used for draw and distal BARD port used for return. 1.0 volume, 100% fluid balance using 5% Albumin as replacement fluid completed. 2 grams Calcium gluconate given intra procedure. Patient tolerated procedure well. Next procedure scheduled for 11/14/2018. documented in this encounter Plan of Treatment Upcoming Encounters Date Type Department Care Team (Late st Contact Info) Description 09/14/2024 3:00 PM CDT Office Visit [facility] - [address] [facility] [place] [phone] Marlys Mayer MD [address] [place], [place] [id number] documented as of this encounter Procedures Procedure Name Priority Date/Time Associated Diagnosis Comments PROTIME-INR Routine 11/13/2018 10:29 AM CDT Metabolic syndrome History of gestational [...] pain Acquired hypothyroidism Recurrent pancreatitis TRIGLYCERIDE Routine 11/13/2018 10:29 AM CDT Metabolic syndrome History of gestational [...] in this encounter Results * (ABNORMAL) TRIGLYCERIDE (11/13/2018 10:29 AM CDT) TRIGLYCERIDE 3,668(H) <150 mg/dL 11/13/2018 11:12 AM CDT [facility] Blood Collection / Unknown 11/13/2018 10:29 AM CDT 11/13/2018 10:29 AM CDT [facility] - 11/13/2018 11:12 AM CDT TRIGLYCERIDES ? mg/dL Normal ?< 150 Borderline High ?150 - 199 High ? 200 - 499 Very High ? >= 500 Based on AHA/NCEP Guidelines. Alize Arteaga MD CHEMISTRY ORDER [facility]# [id number] [address] [facility] [place] [place] [address] * PROTIME-INR (11/13/2018 10:29 AM CDT) PROTIME 13.0 12.7 - 15.1 Seconds 11/13/2018 10:45 AM CDT [facility] INR 1.0 0.9 - 1.1 11/13/2018 10:45 AM CDT [facility] [place] [facility] Blood Collection / Unknown 11/13/2018 10:29 AM CDT 11/13/2018 10:29 AM CDT [facility] - 11/13/2018 10:45 AM CDT INR Therapeutic Range: Adult: ?? 2.0 - 3.0 for pulmonary embolism or prophylaxis against venous ?thrombosis or systemic embolization. 2.0 - 3.0 for patients with tissue heart valves. 2.5 - 3.5 for patients with mechanical heart valves or post MS. Pediatric ??(12 years and under): 1.5 - 3.0 Although the target range in children is not well established, ?INR values of 1.5 - 3.0 are recommended for most patients. ?Higher values have been used in children with prosthetic ?cardiac valves and hereditary clotting disorders. [place] (<3 days) therapeutic ranges have not been established. Alize Arteaga MD HEMATOLOGY YONI SERRANO Performing Organization Address City/State/[facility] Co de Phone Number [facility] LABORATORY SERVICES [facility]# [id number] [address] [place] [place] [address] documented in this encounter Visit Diagnoses Diagnosis [...] INTRA-PROCEDURE ONCE, 1 dose, Starting on Katie 11/13/18 at 1000, Until Aktie 11/13/18 at 1116, Routine New Bag 11/13/2018 10:46 AM CDT 2,000 mg 240 mL/hr heparin, porcine (PF) injection 2,000 Units 2,000 Units, IV, ONE TIME ONLY, 1 dose, On Katie 11/13/18 at 1130, Routine Given 11/13/2018 12:02 PM CDT 2,000 Units heparin, porcine (PF) injection 2,000 Units 2,000 Units, See Admin Instructions, ONE TIME ONLY, 1 dose, On Katie 11/13/18 at 1130, Routine Given 11/13/2018 12:01 PM CDT 2,000 Units Chest, Right lidocaine (L.M.X.4) 4 % topical cream Topical, ONE TIME ONLY, 1 dose, On Katie 11/13/18 at 1000, Routine Given 11/13/2018 10:00 AM CDT Chest, Right documented in this encounter Care Teams Bait Digger Relationship Specialty Start Date End Date Guerrero Middleton PA-C PCP - General Physician Stabilizer Operator 02/13/18 documented as of this encounter
--- OUTSIDE RECORDS SUMMARY | 2024-05-03 20:44 | XMS_ITS | Encounter Summary ---
Author Organization [facility] Address [address] [place] [address] Care Team Providers Care Packaging Designer Name Role Phone Guerrero Middleton PA-C Primary Care Provide r Reason for Visit * Reason Comments Follow Up 6 month check up Encounter Details Date Type Department Care Team (Latest Contact Info) Description 10/23/2018 1:45 PM CDT Office Visit [facility] Heart and Vascular At [facility] [address] [place] [phone] Marlys Mayer MD [address] [place] [address] [address] [place] [address] Chylomicronemia syndrome (Primary Dx); Type 2 diabetes mellitus without complication, with long-term current use of insulin; Class 1 obesity due to excess calories with serious comorbidity and body mass index (BMI) of 32.0 to 32.9 in adult Social History Tobacco Use Types Packs/Day Years [...] Sign Reading Time Taken Comments Blood Pressure 112/62 10/23/2018 2:04 PM CDT Pulse 91 10/23/2018 2:04 PM CDT Temperature - - Respiratory Rate - - Oxygen Saturation 96% 10/23/2018 2:04 PM CDT Inhaled Oxygen Concentration - - Weight 88 kg (194 lb) 10/23/2018 2:04 PM CDT Height 165.1 cm (5' 5 ) 10/23/2018 2:04 PM CDT Body Mass Index 32.28 10/23/2018 2:04 PM CDT documented in this encounter Progress Notes * Marlys Mayer MD - 10/23/2018 2:12 PM CDT [facility] Follow-up Visit Casandra Jones, a 42 y.o. female returns for follow-up of these problems: ICD-10-CM ICD-9-CM 1. 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 Type 2 diabetes mellitus without complication, with long-term current use of insulin E11.9 250.00 Z79.4 V58.67 3. Class 1 obesity due to excess calories with serious comorbidity and body mass index (BMI) of 32.0 to 32.9 in adult E66.09 278.00 Z68.32 V85.32 Since last visit on 06/18/18: Hospitalizations: [facility] 09/28 to 10/02/ with high triglycerides and abdominal pain , treated with plasmapheresis She has had prior similar admissions 06/29 to 07/03, 07/29 to 08/03 and 08/20 to 08/24/18. Although lipase and amylase not elevated, she had abdominal pain, nausea, headaches, malaise which all improve with pheresis. After most recent admission there was discussion regarding placement of a port for bi monthly plasmapheresis to prevent readmission. Cardiac symptoms: Denies cardiac symptoms chest pain, PND, orthopnea, edema,palpitations, syncope or near syncope. She denies abdominal pain or vomiting. She c/o headache, mild nausea Reports she is compliant with diet and all medications Weight is down 10 lbs from MAY OV Current Outpatient Medications Medication Sig Dispense Refill [...] u PM : 22 u . ??? visfrpb-vlmmta-jlwzegtu DR (CREON) 60-12-38 capsule Take 2 Capsules [...] this visit. Past Medical History: Diagnosis Date ??? Anxiety [...] TUNNELED VENOUS CATHETER PLACEMENT Right 09/29/2018 ??? [place] ESOPHAGOGASTRODUODENOSCOPY TRANSORAL DIAGNOSTIC N/A 03/08/2018 ESOPHAGOGASTRODUODENOSCOPY performed by Ceasar Vega MD at [facility] GI LAB Social History Socioeconomic History ??? Marital status: Spouse name: Not on file ??? Number of children: Not on file ??? Years of education: Not on file ??? Highest education level: Not on file Occupational History Employer: [employer] Social Needs ??? Financial resource strain: Not [...] Gets together: Three times a week Attends christian service: Never Active member of club or organization: No Attends meetings of clubs or organizations: Never Relationship status: ??? Intimate partner violence: Fear of current or ex partner: No Emotionally abused: No Physically abused: No Forced sexual activity: No Other Topics Concern ??? Not on file Social History Narrative Merged History Encounter ROS General- without significant weight change Endo-without polyuria, polydipsia, hot or cold intolerance Pulmonary-without cough, SOB GI-without abdominal pain, constipation, diarrhea -without dysuria, hematuria MS-without myalgia Heme- without excessive bruising Neuro/psych-without sx of depression Physical Exam BP 112/62 Pulse 91 Ht 5' 5 (1.651 m) Wt 88 kg (194 lb) SpO2 96% BMI 32.28 kg/m?? Wt Readings from Last 3 Encounters: 10/23/18 88 kg (194 lb) 10/01/18 89.6 kg (197 lb 9.6 oz) 08/23/18 92.1 kg (203 lb) General-No acute distress, alert, oriented Neck- without JVD, thyroid not enlarged Lungs-Clear to auscultation CV-Regular rate and rhythm, without murmer, gallop or rub. Without carotid bruits . Abdomen-soft, nontender without organomegaly Extremeties-Without edema. Distal pulses normal. Normal range of motion. Normal muscle strength Lab Results Component Value Date/Time CHOLTOT 458 (H) 07/29/2018 10:56 PM CHOLTOT 334 (H) 06/18/2018 10:48 AM CHOLTOT 505 (H) 05/16/2018 09:38 PM HDL 07/29/2018 10:56 PM Comment: Measured HDL is not accurate when the Triglyceride value exceeds 1200. HDL 36 (L) 06/18/2018 10:48 AM HDL 05/16/2018 09:38 PM Comment: Measured HDL is not accurate when the Triglyceride value exceeds 1200. LDLCALC 07/29/2018 10:56 PM Comment: Calculated LDL is not accurate when the Triglyceride value exceeds 400. LDLCALC 06/18/2018 10:48 AM Comment: Calculated LDL is not accurate when the Triglyceride value exceeds 400. LDLCALC 05/16/2018 09:38 PM Comment: Calculated LDL is not accurate when the Triglyceride value exceeds 400. LDLDIRECT 110 08/10/2011 07:21 AM TRIGLYCERIDE 478 (H) 10/02/2018 05:00 AM TRIGLYCERIDE 1,209 (H) 10/01/2018 04:36 AM TRIGLYCERIDE 2,696 (H) 09/30/2018 05:10 AM Impression ICD-10-CM ICD-9-CM 1. 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 Type 2 diabetes mellitus without complication, with long-term current use of insulin E11.9 250.00 Z79.4 V58.67 3. Class 1 obesity due to excess calories with serious comorbidity and body mass index (BMI) of 32.0 to 32.9 in adult E66.09 278.00 Z68.32 V85.32 Plan Emphasized TLC Medications: Continue current medications Management was discussed with her graphic design assistant Dr Rudd who has voiced reservations about the placement of a port. He plans to see her October 28 to discuss further management She was instructed to contact me or some to ED for worsening symptoms documented in this encounter Plan of Treatment Upcoming Encounters Date Type Department Care Team (Late st Contact Info) Description 09/14/2024 3:00 PM CDT Office [facility] [address] [address] [place] [phone] Marlys Mayer MD [address] [place] [address] documented as of this encounter Visit Diagnoses Diagnosis Chylomicronemia syndrome- Primary Hyperchylomicronemia Type 2 diabetes mellitus without complication, with long-term current use of insulin Class 1 obesity due to excess calories with serious comorbidity and body mass index (BMI) of 32.0 to 32.9 in adult documented in this encounter Care Teams Packaging Designer Relationship Specialty Start Date End Date Guerrero Middleton PA-C PCP - General Physician Bioinformatics Developer 02/13/18 documented as of this encounter
--- OUTSIDE RECORDS SUMMARY | 2024-05-03 20:44 | XMS_ITS | Encounter Summary ---
Author Organization [facility] Address [address] [place] [address] Care Team Providers Care Sdet Name Role Phone Guerrero Middleton PA-C Primary Care Provide r Encounter Details Date Type Department Care Team (Latest Contact Info) Description 11/18/2018 9:56 AM CDT - 11/18/2018 11:59 PM T Hospital Encounter [facility] Blood Bank Don[facility] [address] [place] [address] Marlys Mayer MD [address] [place] [address] Discharge Disposition: Home or Self Care Social [...] How often do you attend chur or gnosticism services? Never 08/21/2018 Do you [...] Reading Time Taken Comments Blood Pressure 124/84 11/18/2018 11:23 AM CDT Pulse 91 11/18/2018 11:23 AM CDT Temperature 36.8 ??C (98.3 ??F) 11/18/2018 11:23 AM C DT Respiratory Rate 18 11/18/2018 11:23 AM CDT Oxygen Saturation - - Inhaled [...] Progress Notes * Sharri Juarez RN - 11/18/2018 2:03 PM CDT Plasma exchange completed today using R chest BARD ports for access and return. Used 5% Albumin forreplacement fluid for a 1.0 volume exchange with a 100% fluid balance. Patient tolerated the procedure well. Discharge instructions given. Patient left BDS department ambulatory and in stable condition. Next plasma exchange scheduled for 11/20/2018. documented in this encounter Plan of Treatment Upcoming Encounters Date Type Department Care Team (Late st Contact Info) Description 09/14/2024 3:00 PM CDT Office Visit [facility] Heart and Vascular - [facility] [address] [place] [phone] Marlys Mayer MD [address] [place] [address] documented as of this encounter Procedures Procedure Name Priority Date/Time Associated Diagnosis Comments TRIGLYCERIDE Routine 11/18/2018 10:20 AM CDT Metabolic syndrome History of gestational [...] in this encounter Results * (ABNORMAL) TRIGLYCERIDE (11/18/2018 10:20 AM CDT) TRIGLYCERIDE 928(H) <150 mg/dL 11/18/2018 11:23 AM CDT [facility] Blood Collection / Unknown 11/18/2018 10:20 AM CDT 11/18/2018 10:34 AM CDT Narrative [facility] - [facility] - 11/18/2018 11:23 AM CDT TRIGLYCERIDES ? mg/dL Normal ?< 150 Borderline High ?150 - 199 High ? 200 - 499 Very High ? >= 500 Based on AHA/NCEP Guidelines. David Boyle MD CHEMISTRY ORDERABLE S [facility]# [id number] [address] [place] [address] documented in this encounter Visit Diagnoses Diagnosis [...] IV, INTRA-PROCEDURE ONCE, 1 dose, Starting on Sat11/18/18 at 1000, Until Sat11/18/18 at 1123, Routine New Bag 11/18/2018 10:22 AM CDT 2,000 mg 120 mL/hr heparin injection 2,000 Units 2,000 Units, [place], ONE TIME ONLY, 1 dose, On Sat11/18/18 at 1200, Routine Given 11/18/2018 11:26 AM CDT 2,000 Units Port heparin injection 2,000 Units 2,000 Units, [place], ONE TIME ONLY, 1 dose, On Sat11/18/18 at 1200, Routine Given 11/18/2018 11:24 AM CDT 2,000 Units Port documented in this encounter Care Teams Sdet Relationship Specialty Start Date End Date Guerrero Middleton PA-C PCP - General Physician Billposter 02/13/18 documented as of this encounter
--- OUTSIDE RECORDS SUMMARY | 2024-05-03 20:44 | XMS_ITS | Encounter Summary ---
Author Organization [facility] Address [address] [place] [address] Care Team Providers Care Information Resources Manager Name Role Phone Guerrero Middleton PA-C Primary Care Provide r Reason for Visit * Reason Onset Date Comments elevated triglycerides 10/23/2018 Encounter Details Date Type Department Care Team (Late st Contact Info) Description 10/23/2018 Telephone [facility] At [facility] [address] [place] [phone] Marlys Mayer MD [address] [place] [address] elevated triglycerides Social History Tobacco Use Types [...] any clubs o r organizations such as mosque groups, unions, fraternal or athletic groups, or [...] Telephone Encounter - Alexandra Kahn RN - 10/23/2018 2:[address]Pankaj Osorio's office, spoke with Thuy, ward secretary. She will email to see if he received our email on June 19, 2018 and if he has any recommendations for patient. Has my direct callback number. Spoke with administration and placed referral to [facility], patient medical record number is [id number]. Patient may call 's office directly for appointment at [phone]. Ifpatient makes appointment she needs to confirm [facility] documented in this encounter Plan of Treatment Upcoming Encounters Date Type Department Care Team (Late st Contact Info) Description 09/14/2024 3:00 PM CDT [facility] [address] [place] [phone] Marlys Mayer MD [address] [place] [address] documented as of this encounter Visit Diagnoses Not on filedocumented in this encounter Care Teams Information Resources Manager Relationship Specialty Start Date End Date Guerrero Middleton PA-C PCP - General Physician Powder Operator 02/13/18 documented as of this encounter
--- OUTSIDE RECORDS SUMMARY | 2024-05-03 20:44 | XMS_ITS | Encounter Summary ---
Author Organization [facility] Address [address] [place] [address] Care Team Providers Care Internal Medicine Nurse Practitioner Name Role Phone Guerrero Middleton PA-C Primary Care Provide r Reason for Visit * Reason Onset Date Comments Needs Orders Written 12/11/2018 Encounter Details Date Type Department Care Team (Late st Contact Info) Description 12/11/2018 Telephone [facility] Endocrinology [address] [place] [address] Blake Rudd MD NO ADDRESS ON FILE Needs Orders Written Social History Tobacco Use Types Packs/Day Years [...] often do you attend chur ch or sikhism services? Never 08/21/2018 Do you [...] [facility]) Heart and Vascular - [facility] [address] [place] [address] Marlys Mayer MD [address] [place] [address] documented as of this encounter Visit Diagnoses Diagnosis Hypertriglyceridemia- Primary Pure hyperglyceridemia documented in this encounter Care Teams Internal Medicine Nurse Practitioner Relationship Specialty Start Date End Date Guerrero Middleton PA-C PCP - General Physician Boots And Shoes Supervisor 02/13/18 documented as of this encounter
--- OUTSIDE RECORDS SUMMARY | 2024-05-03 20:44 | XMS_ITS | Encounter Summary ---
Author Organization [facility] Address [address] [place] [address] Care Team Providers Care Scrub Tech Name Role Phone Guerrero Middleton PA-C Primary Care Provide r Reason for Visit * Reason Onset Date Comments scheduling appointment 09/26/2018 Encounter Details Date Type Department Care Team (Late st Contact Info) Description 09/26/2018 Telephone [facility] Heart and Vascular At [facility] [address] [place] [phone] Marlys Mayer MD [address] [place] [address] [address] [place] [address] scheduling appointment Social History Tobacco Use Types Packs/Day Years [...] How often do you attend chur or mormonism services? Never 08/21/2018 Do you [...] as of this encounter Miscellaneous Notes * Addendum Note - Tita Jessica RMA - 10/02/2018 1:44 PM CDTAddended by: TITA JESSICA on: 10/02/2018 01:44 PM Modules accepted: Orders * Telephone Encounter - Tita Jessica RMA - 10/02/2018 1:30 PM CDT Appointment scheduled on 10/23/2018. Sent labs as requested. * Telephone Encounter - Tita Jessica RMA - 09/30/2018 1:45 PM CDT Left message asking Casandra to call back.; she was given the my direct number [phone]. * Telephone Encounter - Thuy Campos - 09/26/2018 8:51 AM CDT Patient called stating she see's Dr. Mayer every month, but they were waiting to see if she got into a program, but she did not. Patient would like to come in to see Dr. Mayer as soon as she can.Please contact the pt at [phone] thank you. documented in this encounter Plan of Treatment Upcoming Encounters Date Type Department Care Team (Late st Contact Info) Description 09/14/2024 3:00 PM CDT Office [facility] [address] [place] [address] Marlys Mayer MD [address] [place] [address] documented as of this encounter Visit Diagnoses Diagnosis Mixed hyperlipidemia- Primary documented in this encounter Care Teams Scrub Tech Relationship Specialty Start Date End Date Guerrero Middleton PA-C PCP - General Physician Field Clerk 02/13/18 documented as of this encounter
--- OUTSIDE RECORDS SUMMARY | 2024-05-03 20:44 | XMS_ITS | Encounter Summary ---
Author Organization [facility] Address [address] [place] [address] Care Team Providers Care Vending Manager Name Role Phone Guerrero Middleton PA-C Primary Care Provide r Reason for Visit * Reason Comments Abnormal Lab Results A 42 y/o F arrived to the ED after having blood work drawn on sat. pt report her triglyerides are 478. Pt reports a headache x 1 week, nausea and left sided abodminal pain. Pt denies any diarrhea or fevers. Pt reports one episode of vomiting. * Auth/Cert Specialty Diagnoses / Procedures Referred By Tequila t Referred To Contact Critical Care Medicine [facility] Transitional Care Unit [address] [place] [address] Referral ID Status Reason Start Date Expiration Date Visits Re quested Visits Authorized [id number] 1 1 Encounter Details Date Type Department Care Team (Latest Contact Info) Description 10/28/2018 4:03 PM CDT - 10/31/2018 3:05 PM CDT Hospital Encounter [facility] Transitional Care Unit [address] [place] [address] Phoenix Livingston MD [address] [place] [address] Angie Louis MD [address] [facility] [address] [address] Kim Salvador, DO [address] [facility] [address] [place] [address] Chylomicronemia syndrome Discharge Disposition: Home or Self Care Social [...] How often do you attend chur or temple services? Never 08/21/2018 Do you [...] Sign Reading Time Taken Comments Blood Pressure 100/60 10/31/2018 1:56 PM CDT Pulse 82 10/31/2018 1:19 PM CDT Temperature 36.6 ??C (97.9 ??F) 10/31/2018 1:19 PM CD T Respiratory Rate 12 10/31/2018 1:19 PM CDT Oxygen Saturation 97% 10/31/2018 2:15 PM CDT Inhaled Oxygen Concentration - - Weight 88.3 kg (194 lb 9.6 oz) 10/28/2018 7:49 P M CDT Height 165.1 cm (5' 5 ) 10/28/2018 7:49 PM CDT Body Mass Index 32.38 10/28/2018 7:49 PM CDT documented in this encounter Discharge Summaries * Kim Restrepo DO - 10/31/2018 11:45 AM CDT [facility] Adult Hospitalist Discharge Summary Casandra Doss 42 y.o. female 1975 CSN: [id number] Date of Admission: 10/28/2018 Date of Discharge: 10/31/2018 Discharging Physician: Kim Restrepo DO LOS: 3 days PCP: Guerrero Middleton PA-C Activity: activity as tolerated. Dispo: home Diet: DIET DIABETIC Code Status at Discharge: Full Code Wound Care: None needed Admitting Dx: Chylomicronemia syndrome Discharge Diagnoses and Hospital Course: Principal Problem: Chylomicronemia syndrome Active Problems: PCOS (polycystic ovarian syndrome) Hypertriglyceridemia Type 2 diabetes mellitus without complication, with long-term current use of insulin Left upper quadrant pain Acquired hypothyroidism Recurrent pancreatitis Severe Hypertriglyceridemia/Chylomicronemia Syndrome: with recurrent pancreatitis. Follows with and Dr. Rudd as outpatient. -Continue SILVER BUFFER lofibra, fish oil, lipitor -Had SARAH powerflow catheter placed on 10/29. plasmapheresis done daily until TG <500. -Now, plan for bi-weekly prophylactic treatment as outpatient. ?? Abdominal Pain: lipase negative, but similar to prior presentation with abdominal pain which improved with treatment of above. -Resolved with plasmapheresis. ?? T2DM: insulin gtt started initially on admission, has since been transitioned back to basal/bolus. Resume SILVER BUFFER regimen at discharge. ?? Hypothyroidism: continue SILVER BUFFER synthroid Chronic Pancreatitis: continue SILVER BUFFER creon Depression/Anxiety: continue SILVER BUFFER celexa, trazodone GERD: continue SILVER BUFFER PPI Discharge medications and new prescriptions: Medication List START taking these medications niacin SR 500 mg capsule Take 1 Capsule (500 mg) by mouth daily at bedtime. Signed by: Blake Rudd MD Quantity: 30 Capsule Refills: 5 CONTINUE taking these medications citalopram 40 mg tablet Commonly known as: CeleXA Take 40 mg by mouth daily at bedtime. Refills: 0 CREON 60-12-38 capsule Take 2 Capsules by mouth 4 times daily with meals and at bedtime. Refills: 0 Generic drug: cfxqcxz-xxmarl-llhwzgga DR dicyclomine 10 mg capsule Commonly known [...] Max Daily Amount: 4 Tablets Signed by: Naman Doherty MD Quantity: 10 Tablet Refills: 0 insulin aspart 100 unit/mL injection Commonly known as: NovoLOG Inject 1 Units by subcutaneous injection AM : 14 u Lunch: 16 u PM : 22 u . Refills: 0 insulin glargine 100 unit/mL injection Commonly known as: LANTUS Inject 28 Units by subcutaneous injection 2 times daily 28 units in the AM 38 units in the PM. Refills: 0 levothyroxine 200 mcg tablet Commonly [...] Thurman MD Quantity: 60 Tablet Refills: 0 omega-3 fatty acids-fish oil 300-1,000 mg Capsule Take 2 Capsules by mouth 2 times daily. Refills: 0 ondansetron 4 mg Tablet, Rapid [...] by mouth daily at bedtime. Refills: 0 spironolactone 25 mg tablet Commonly known as: ALDACTONE Take 25 mg by mouth daily. Refills: 0 traZODone 100 mg tablet Commonly known as: DESYREL Take 100 mg by mouth daily at bedtime . Refills: 0 Where to Get Your Medications Information about where to get these medications is not yet available Ask your nurse or doctor about these medications ?? niacin SR 500 mg capsule Consultants: IP CONSULT TO IV TEAM IP CONSULT TO INTERVENTIONAL RADIOLOGY IP CONSULT TO WOUND CARE Significant Diagnostic Studies This Admission: ?? None. Labs from this Hospitalization Needing Follow Up: ?? Triglycerides - will be followed with prophylactic plasmapheresis. Discharge Lab Data: Lab Results Component Value Date/Time WBC 7.3 10/31/2018 03:19 AM HEMOGLOBIN 11.9 10/31/2018 03:19 AM HEMATOCRIT 37.0 10/31/2018 03:19 AM PLATELETS 180 10/31/2018 03:19 AM SODIUM 137 10/30/2018 10:31 AM CHLORIDE 108 (H) 10/30/2018 10:31 AM POTASSIUM 3.8 10/30/2018 10:31 AM CO2 19 (L) 10/30/2018 10:31 AM BUN 3 (L) 10/30/2018 10:31 AM CREATININE 0.39 (L) 10/30/2018 10:31 AM GLUCOSE 156 (H) 10/30/2018 10:31 AM INR 1.1 10/31/2018 03:19 AM AST 16 10/28/2018 03:56 PM ALT 16 10/28/2018 03:56 PM CRP 115.8 (H) 08/23/2018 07:04 AM Discharge Exam: BP 113/73 (BP Location: Left arm, Patient Position (BP): Supine) Pulse 80 Temp 97.9 ??F (36.6 ??C) (Oral) Resp 10 Ht 5' 5 (1.651 m) Wt 88.3 kg (194 lb 9.6 oz) SpO2 97% BMI 32.38 kg/m?? Physical Exam: General appearance alert, cooperative, no distress, appears stated age Lungs clear to auscultation bilaterally Heart regular rate and rhythm, S1, S2 normal, no murmur, click, rub or gallop Abdomen soft, non-tender. Bowel sounds normal. No masses, No organomegaly Extremities extremities normal, atraumatic, no cyanosis or edema Skin Skin color, texture, turgor normal. No rashes or lesions Discharge Condition: improving. Follow-up: Guerrero Middleton PA-C in 1 week(s). More than 30 minutes were spent in this discharge activity. Signed: Kim Restrepo DO 10/31/2018, 11:45 AM documented in this encounter Medications at Time [...] Progress Notes * Alize Arteaga MD - 10/31/2018 3:26 PM CDT CC: ??42 yo female with hypertriglyceridemia associated??with??recurrent necrotizing pancreatitis presented to ED with abdominal pain and markedly elevated triglycerides.??(ASFA category III indication for apheresis). ?? HPI: ??Epigastric abdominal pain on background of chronic abdominal pain. ?? PMH: ??Hypertriglyceridemia (associated with prior episodes of pancreatitis, received inpatient plasma exchanges 04/2018, 07/2018 and 09/2018), DM, anxiety, GERG, HLD, hypothyroidism, PCOS ?? Meds: as per EPIC. ?? Exam: ??Patient resting in bed. ??Ports accessed in chest with clear dressing in place. ??No erythema, induration or drainage observed. ?? Labs: WBC??7.3, Hgb 11.9, Hct 37.0, Plt 180, triglycerides??599(pre-procedure), INR 1.1 ?? A&P: 1. 42 yo female with hypertriglyceridemia associated??with??abdominal pain??requires plasma exchange. 2. ??Plan plasma exchange daily until triglycerides <??500. 3. ??We will perform a 1.0 volume plasma exchange with all albumin replacement with 100% fluid balance with 2 g calcium gluconate over the procedure. 4. Per Drs. Rudd and Moreno, we will continue PLEX daily until triglycerides <500. After triglycerides <500, we will begin maintenance plasma exchanges every two weeks prophylactically. 5. Today was her last procedure for this acute episode. We will follow up with the patient to schedule PLEX every two weeks to maintain triglycerides < 500. ? Procedure #3: ??Patient tolerated the procedure well. ? I have seen and examined the patient, reviewed pertinent notes and records, and remained immediately available throughout the procedure. ?? Alize Arteaga MD, PhD Career And Guidance Counselor, therapeutic apheresis service [phone] * Robyn Hernandez RN - 10/31/2018 2:02 PM CDT Plasma exchange number 3 completed using R chest bard port. 1.0 Volume exchange using 5% Albumin asreplacement fluid for a 100% fluid balance. Patient tolerated well. Port was de-accessed. Next procedure will be outpatient in two weeks per Dr. Arteaga. * Kim Restrepo DO - 10/30/2018 11:30 AM CDT [facility] Adult Hospitalist Progress Note Admit Date: 10/28/2018 Date of Note: 10/30/2018, 11:30 AM LOS: 2 days Previous history of present illness and review of systems have been reviewed today as documented inthe H&P on 10/28/2018; medications, labs, studies, notes, orders and consults have been reviewed.I have reviewed the notes from admission. Subjective: Doing well. Abdominal pain is much better since receiving plasmapheresis. Complains of mild edema in hands, but otherwise denies complaint. Objective: BP 131/84 (BP Location: Left arm, Patient Position (BP): Supine) Pulse 80 Temp 98.5 ??F (36.9 ??C) (Oral) Resp 10 Ht 5' 5 (1.651 m) Wt 88.3 kg (194 lb 9.6 oz) SpO2 97% BMI 32.38 kg/m??Temp (24hrs), Av.4 ??F (36.9 ??C), Min:98 ??F (36.7 ??C), Max:99.6 ??F (37.6 ??C) Moderate amount stool (10/30/18 1113) Exam: General: Alert, no distress. Chest Wall: Port in place in R chest Heart: Regular rate and rhythm, S1, S2 normal, no murmur, click, rub or gallop. Lungs: Clear to auscultation bilaterally Abdomen: Soft, minimal TTP. Extremities: No clubbing, cyanosis or edema Data Base: I have reviewed all new labs and studies resulted and pertinent ones are noted below Assessment/Plan of Actively Managed Problems Severe Hypertriglyceridemia/Chylomicronemia Syndrome: with recurrent pancreatitis. Follows with and Dr. Rudd as outpatient. -Continue SILVER BUFFER lofibra, fish oil -Had SARAH powerflow catheter placed on 10/29. -Plasmapharesis daily per Dr. Arteaga. -Plan to continue with daily treatment until TG<500. Then, plan for bi-weekly prophylactic treatment as outpatient. Abdominal Pain: lipase negative, but similar to prior presentation with abdominal pain which improved with treatment of above. -Shokan and morphine prn. T2DM: insulin gtt started initially on admission, has since been transitioned back to basal/bolus. SILVER BUFFER on metformin, lantus 28u qAM, 38u qPM. Prandial insulin is 14-16-22. -Blood sugars currently controlled on lantus 15u BID, 7u prandial with SSI. -Continue to monitor and adjust regimen as indicated. Hypothyroidism: continue SILVER BUFFER synthroid Chronic Pancreatitis: continue SILVER BUFFER creon Depression/Anxiety: continue SILVER BUFFER celexa, trazodone GERD: continue SILVER BUFFER PPI DVT Prophylaxis - sequential compression devices Pettit catheter:absent Lines: SARAH powerflow cathether, peripheal IV PT/OT: at functional baseline Activity Order: Present Activity: in bed (10/30/18 1104) Current Code Status -Full Code Plan discussed with patient, questions answered. Current Planned Disposition - Home when triglycerides <500. Possibly tomorrow. Stable/Resolved Issues/Follow Up Needs As above. More than 35 minutes were spent in the care of this patient today; more than 50% was spent in discussion of expected course of disease, discussion of prognosis, discharge planning, coordination of care and discussion of lab and test results. Kim Restrepo DO [facility] Hospitalist Pager: [phone] * Rosales Tapia, RN - 10/30/2018 10:57 AM CDT Plasma exchange number 2 using the implanted bard ports for access and return with 5% albumin as replacement fluids for a 1.0 volume exchange. * Katia Lima RN - 10/29/2018 6:25 PM CDT One dose of Narcan given and pt became more alert and able to keep her eyes open. One liter NS bolus infused. SPB increased to 100-110s. BMP drawn and sent to the lab. Awaiting results. * Kim Restrepo DO - 10/29/2018 5:42 PM CDT Brief Hospitalist Progress Note: Pt remained lethargic following procedure and with soft BPs. D/w RN - ordered narcan x1, ABG, 1L bolus. Followed up with RN - pt is more awake following narcan, conversive, BPs have improved to 100s systolic per my conversation with RN but not charted yet. ABG reviewed - mild metabolic acidosis. Will check BMP to r/o AGMA. Received significant fentanyl along with ketamine and propofol during line placement per report. Suspect lethargy and hypotension ongoing effect of this. Will f/u BMP. If no AG and pt continues to be awake and alert with improved BPs, no further intervention planned. Kim Restrepo DO [facility] Adult Hospitalist Pager: [phone] * Sari Sanford - 10/29/2018 3:33 PM CDT Plasma exchange completed using the R chest implanted BARD port placed today. Port was accessed in IR. 5% Albumin used as replacement fluid for a 1.0 volume exchange. Patient tolerated without incident. Daily exchanges until triglycerides are less than 500. * Kim Restrepo DO - 10/29/2018 3:19 PM CDT [facility] Adult Hospitalist Progress Note Admit Date: 10/28/2018 Date of Note: 10/29/2018, 3:20 PM LOS: 1 day Previous history of present illness and review of systems have been reviewed today as documented inthe H&P on 10/28/2018; medications, labs, studies, notes, orders and consults have been reviewed.I have reviewed the notes from admission. Subjective: Had port placement this morning - still sleepy on my exam Denies complaint Objective: BP 102/48 (BP Location: Left arm, Patient Position (BP): Lying right side) Pulse 71 Temp 97.8 ??F (36.6 ??C) (Oral) Resp 10 Ht 5' 5 (1.651 m) Wt 88.3 kg (194 lb 9.6 oz) SpO2 90% BMI 32.38 kg/m?? Temp (24hrs), Av ??F (36.7 ??C), Min:97.6 ??F (36.4 ??C), Max:98.5 ??F (36.9 ??C) Exam: General: Alert, no distress. Chest Wall: Port in place in R chest Heart: Regular rate and rhythm, S1, S2 normal, no murmur, click, rub or gallop. Lungs: Clear to auscultation bilaterally Abdomen: Soft, minimal TTP. Extremities: No clubbing, cyanosis or edema Data Base: I have reviewed all new labs and studies resulted and pertinent ones are noted below Assessment/Plan of Actively Managed Problems Severe Hypertriglyceridemia/Chylomicronemia Syndrome: with recurrent pancreatitis. Follows with and Dr. Rudd as outpatient. -Continue SILVER BUFFER lofibra, fish oil -Had SARAH powerflow catheter placed today. -Plasmapharesis started today per Dr. Arteaga. -Plan to continue with daily treatment until TG<500. Then, plan for bi-weekly prophylactic treatment as outpatient. Abdominal Pain: lipase negative, but similar to prior presentation with abdominal pain which improved with treatment of above. -Shokan and morphine prn. T2DM: insulin gtt started initially on admission. SILVER BUFFER on metformin, lantus 28u qAM, 38u qPM. Prandial insulin is 14-16-. -D/w Dr. Rudd, will transition to basal/bolus insulin. -Start lantus at 15u BID for now as has been NPO today, poor PO intake with abdominal pain. -Start prandial insulin at 7 TID. -Continue to monitor and adjust regimen as indicated. Hypothyroidism: continue SILVER BUFFER synthroid Chronic Pancreatitis: continue SILVER BUFFER creon Depression/Anxiety: continue SILVER BUFFER celexa, trazodone GERD: continue SILVER BUFFER PPI DVT Prophylaxis - sequential compression devices Pettit catheter:absent Lines: SARAH powerflow cathether, peripheal IV PT/OT: at functional baseline Activity Order: Present Activity: in bed (10/29/18 0081) Current Code Status -Full Code Plan discussed with patient, questions answered. Current Planned Disposition - Home when triglycerides <500. Stable/Resolved Issues/Follow Up Needs As above. More than 35 minutes were spent in the care of this patient today; more than 50% was spent in discussion of expected course of disease, discussion of prognosis, discharge planning, coordination of care and discussion of lab and test results. Kim Restrepo DO [facility] Adult Hospitalist Pager: [phone] * Alize Arteaga MD - 10/29/2018 2:43 PM CDT CC: ??42 yo female with hypertriglyceridemia associated??with??recurrent necrotizing pancreatitis presented to ED with abdominal pain and markedly elevated triglycerides.??(ASFA category III indication for apheresis). ?? HPI: ??Epigastric abdominal pain on background of chronic abdominal pain. ?? PMH: ??Hypertriglyceridemia (associated with prior episodes of pancreatitis, received inpatient plasma exchanges 04/2018, 07/2018 and 09/2018), DM, anxiety, GERG, HLD, hypothyroidism, PCOS ?? Meds: as per EPIC. ?? Exam: ??Patient resting in bed. ??Ports accessed in chest with clear dressing in place. ??No erythema, induration or drainage observed. ?? Labs: WBC??10.5, Hgb 13.9, Hct 40.0, Plt 338, triglycerides??>4,425??(pre- procedure), lipase 51 ?? A&P: 1. 42 yo female with hypertriglyceridemia associated??with??abdominal pain??requires plasma exchange. 2. ??Plan plasma exchange daily until triglycerides <??500. 3. ??We will perform a 1.0 volume plasma exchange with all albumin replacement with 100% fluid balance with 2 g calcium gluconate over the procedure. 4. BARD powerflow ports placed this AM by Dr. Willoughby, acceptable for immediate use. 5. Per Drs. Rudd and Moreno, we will continue PLEX daily until triglycerides <500. After triglycerides <500, we will begin maintenance plasma exchanges every two weeks prophylactically. 6. We will review INR and consider replacement of the last liter of replacement fluid with FFP if INR > 1.5. ? Procedure #1: ??Patient tolerated the procedure well. ? I have seen and examined the patient, reviewed pertinent notes and records, and remained immediately available throughout the procedure. ?? Alize Arteaga MD, PhD Career And Guidance Counselor, therapeutic apheresis service [phone] * Aura Parks RN - 10/29/2018 12:14 PM CDT Procedure complete. Katia OLGUIN is at bedside. Will accompany transport. * Laverne Willoughby MD - 10/29/2018 12:09 PM CDT INTERVENTIONAL RADIOLOGY POST-PROCEDURE NOTE Procedure(s): Ultrasound and fluoroscopic guided placement of 2 separate right internal jugular power flow subcutaneous ports Surgeon(s): Laverne Willoughby MD Complications: None. EBL: 30 ml Procedure: Under direct fluoroscopic guidance 2 separate subcutaneous prior flow ports were placed through the right transjugular approach. The patient tolerated the procedure well. The ports remained accessed and can be used immediately. For final radiology report, please refer to the imaging tab in the chart review section of the patient's electronic medical record (EPIC). * Aura Parks RN - 10/29/2018 10:56 AM CDT Introduced self to pt. ID/BD/allergies verified. NPO. Dr Willoughby and Dr Lugo spoke with pt. Consentsigned and in chart. Monitors applied. Anesthesia remains at bedside to manage airway, induction, vitals. * Abel Peacock MD - 10/29/2018 2:11 AM CDT [facility] Call Two patient identifier: Casandra Doss 1975 Called for: Last blood sugar 92, decreased insulin drip to 4.5units/hr. At what point are we stopping the drip? Last Recorded Vitals: BP 97/52 (BP Location: Left arm, Patient Position (BP): Supine) Pulse 84 Temp 97.9 ??F (36.6 ??C) (Oral) Resp 15 Ht 5' 5 (1.651 m) Wt 88.3 kg (194 lb 9.6 oz) SpO2 95% BMI 32.38 kg/m?? Pain Rating: Rest: 7 (10/29/18 0157) Handoff Information (if present): Documentation/Intervention/Outcome: Chart reviewed. Will be continuing the insulin gtt until plasmapheresis can be started in am Cont. To follow protocol as you are doing to avoid hypoglycemia Please call back any time if I can be of more assistance. Abel Peacock MD * Humaira Regalado RN - 10/28/2018 11:17 PM CDT Undress and Assess performed by the following two coworkers: Ward OLGUIN and Humaira OLGUINplant cytologist or upon transfer to: [facility] [id number] ~~~~~~~~~~~~~~~~~~~~~~~~~~~~ Is the patient a paraplegic/quadriplegic? Does the patient have new purple/sissy/dark red over bony prominences? Does the patient have an ostomy? Is the length of stay >2 weeks? ~If ANY answer 'yes'- please consult Wound Care~ Patient does have skin breakdown. Location/ Description of breakdown: Pt has moderate sized blister/wound on lower abdomen. It is reddened with open bleeding. Mepilex applied. Wound care consult was initiated. Protective Dressings Applied to Sacrum and Heels (Mepilex) as per Pathway? none Patient arrived to this room with the following belongings/valuables: cell phone, purse, wallet, clothing, shoes Patient arrived to this room with the following medical equipment/devices (ie: insulin pump, home CPAP, walker): All Jewelry removed from patient none Disposition of belongings/valuables: in room with patient * Vicki White NP - 10/28/2018 10:26 PM CDT [facility] Call Two patient identifier: Casandra Doss 1975 Called for: E ticket placed for : Was told Dr. Louis wanted to know the K result, it is 4.1. Last Recorded Vitals: BP 103/69 Pulse 82 Temp 98.5 ??F (36.9 ??C) (Oral) Resp 14 Ht 5' 5 (1.651 m) Wt 88.3 kg (194 lb 9.6 oz) SpO2 95% BMI 32.38 kg/m?? Pain Rating: Rest: 7 (10/28/182124) Handoff Information (if present): Documentation/Intervention/Outcome: Chart reviewed. Discussed with nurse that Dr. Louis still in house until 0100- contact/pager # information shared for notification. Discussed with Humaira. Please call back any time if I can be of more assistance. Vicki White NP documented in this encounter H&P Notes * Angie Louis MD - 10/28/2018 5:17 PM CDT [facility] Hospitalist H&P Patient Name: Casandra Doss Copy to Primary Care Physician: Guerrero Middleton PA-C Date of Admission: 10/28/2018 Date of Service: 10/28/2018 Chief Complaint: abdominal pain, high TG HPI: Patient is a 42 y.o. female with PMH significant for IDDM, hypertriglyceridemia, chylomicronemia syndrome, hypothyroidism, PCOS, metabolic syndrome, GERD, Anxiety/Depression, recurrentpancreatitis, recurrent hospitalizations for severe triglyceridemia requiring plasmapheresis who pre sents with Upper abdominal pain that started approximately 1 week ago, worsened with food and associated with vomiting. She also reports that her TG were 5550 last ( 5 days ago) and her sign hanger Dr. Rudd saw her today and directed her to [facility]. from pathology hs discussed with Dr. Willoughby from IR and catheter for plasmapheresis will be placed in a.m. TG were 478 upon discharge on 10/02/18 D/W Dr. Livingston in ER Past Medical History: Past Medical [...] TUNNELED VENOUS CATHETER PLACEMENT Right 09/29/2018 ??? [place] ESOPHAGOGASTRODUODENOSCOPY TRANSORAL DIAGNOSTIC N/A 03/08/2018 ESOPHAGOGASTRODUODENOSCOPY performed by Ceasar Vega MD at [facility] GI [facility] Current Medications: Prior to Admission Medications Prescriptions Last Dose Informant Patient Reported? Taking? HYDROcodone-acetaminophen (NORCO) 5-325 mg tablet No No Sig: Take 1 Tablet by mouth every 6 hours as needed for Pain, Severe. Max Daily Amount: 4 Tablets LORazepam (ATIVAN) 1 mg tablet Yes No Sig: Take 1 mg by mouth 2 times daily as needed for Anxiety . zhxskid-ixngun-yfvoigja DR TING) 60-12-38 capsule Yes No Sig: Take 2 Capsules by mouth 4 times daily with meals and at bedtime. citalopram (CeleXA) 40 mg tablet Yes No Sig: Take 40 mg by mouth daily at bedtime. dicyclomine (BENTYL) 10 mg capsule No No Sig: Take 1 Capsule by mouth 4 times daily. fenofibrate (LOFIBRA) 160 mg Oral Tab No No Sig: Take 1 Tab by mouth daily. insulin aspart (NovoLOG) 100 unit/mL injection Yes No Sig: Inject 1 Units by subcutaneous injection AM : 14 u Lunch: 16 u PM : 22 u . insulin glargine (LANTUS) 100 unit/mL injection Yes No Sig: Inject 28 Units by subcutaneous injection 2 times daily 28 units in the AM 38 units in the PM. levothyroxine 200 mcg tablet No No Sig: Take 1 Tablet by mouth daily without food in the morning 30 minutes before eating anything. levothyroxine 200 mcg tablet No No Sig: Take 1 Tablet by mouth daily without food in the morning 30 minutes before eating anything. metFORMIN (GLUCOPHAGE) 500 mg tablet No No Sig: Take 2 Tablets by mouth 2 times daily with meals. omega-3 fatty acids-fish oil 300-1,000 mg Capsule [...] mouth daily. traZODone (DESYREL) 100 mg tablet Yes No Sig: Take 100 mg by mouth daily at bedtime . Facility-Administered Medications: None Medication Allergies: Allergies Allergen Reactions ??? Green Pepper Hives ??? Adhesive Unknown ??? Aspartame Headache All artificial sweeteners. ??? Adhesive Tape-Silicones Hives Family History: Family History Problem Relation Name [...] Frequency: Never Binge frequency: Never Review of Systems History from the patient General negative for weight changes, fever HEENT Denies headaches, blurry vision, Hearing loss, Tinnitus, Lightheadedness, Nasal discharges, dysphagia Heme/Lymph negative for swollen glands or abnormal bleeding Endocrine negative for polyuria/polydipsia or new changes in weight CV negative for chest pain or dyspnea on exertion Respiratory negative for cough, shortness of breath, or wheezing GI positive for - abdominal pain and nausea/vomiting negative for dysuria, trouble voiding, or hematuria MS negative for back pain, neck pain or joint pain or swelling Neuro negative for TIA or stroke symptoms Psychiatric negative Derm negative for skin rashes or unusual skin lesions All Other ROS Negative Physical Exam: BP 97/52 (BP Location: Left arm, Patient Position (BP): Supine) Pulse 84 Temp 97.9 ??F (36.6 ??C) (Oral) Resp 15 Ht 5' 5 (1.651 m) Wt 88.3 kg (194 lb 9.6 oz) SpO2 95% BMI 32.38 kg/m?? General appearance alert, cooperative, no distress [...] murmur, click, rub or gallop Abdomen soft, epigastric/RUQ abdominal pain. Bowel sounds normal. No masses, No organomegaly Neurologic AAO X3, Cranial nerves 2 thru 12 grossly normal, non-focal exam Extremities extremities normal, atraumatic, no cyanosis or edema, warm Skin No rashes or lesions Data Base: CBC: Recent Labs 10/28/18 1556 WBC 10.5* HGB 13.9 HCT 40.0 PLT 338 MCV 92.2 BMP: Recent Labs 10/28/18 1556 NA 130* K 4.1 CL 91* CO2 22 ANIONGAP 17* CA 9.7 GLUCOSE 388* BUN 7 CREAT 0.55 OTHER LYTES:No results for input(s): MG, PO4 in the last 72 hours. AccuCheks: Recent Labs 10/28/18195410/28/18205510/28/18 2158 10/28/18 2306 GLUCPOC 228* 184* 145* 108* LFTs: Recent Labs 10/28/18 1556 ALKPHOS 101 TOTALPROTEIN 7.3 BILITOTAL 0.2* ALBUMIN 4.3 ALT 16 AST 16 Coagulation: No results for input(s): PT, INR, APTT in the last 72 hours. Cardiac markers: No results for input(s): CKMB, TROPONIN in the last 72 hours. Imaging: ECG personally reviewed: Sinus rhythm, HR 89, non-specific ST-T changes Assessment/Plan: Assessment/Plan: 1. Chylomicronemia syndrome/ Severe Hypertriglyceridemia- reportedly TG 5500 several days ago, reports abdominal pain for past week, has h/o recurrent pancreatitis. Plan: IV fluids, NPO after MN for sarah power flow catheter placement tomorrow by IR- contacted, plasmapheresis after catheter placement, in mean time will start insulin gtt , check TG,consult endocrynology 2. Left upper quadrant pain- possible hypertriglyceridemia Induced pancreatitis, h/o recurrent pancreatitis in there past. Plan: see above, Shokan and IV Morphine prn for pain, 3. Acquired hypothyroidism- continue Levothyroxine 4. Recurrent pancreatitis- see #2 5. PCOS (polycystic ovarian syndrome) 6. Type 2 diabetes mellitus without complication, with long-term current use of insulin- see #1,at this time will manage patietn with Insulin gtt which will help hypertriglyceridemia and glucose management while NPO, ones Catheter placed for plasmapheresis and that initiated can stop insulin gtt and transition to basal/bolus ??? DVT Prophlaxis: sequential compression devices ??? Current Planned Disposition: TCU ??? Plan discussed with patient; questions answered; patient agrees with current plan. ??? Current Code Status: Full Code Angie Louis MD [facility] [phone] documented in this encounter Consult Notes * Marcus Cosme, RN - 10/29/2018 9:05 AM CDTAssociated Order(s): IP CONSULT TO WOUND CARE Wound Ostomy Services Initial Consult Patient Name: Casandra Doss Date\Time of Admission: 10/28/2018 4:03 PM Today's Date: 10/29/2018 Current Hospital Day: Hospital Day: 2 Past Medical History\Chief Complaint: Per chart review: Patient is a 42 y.o. female with PMH significant for IDDM, hypertriglyceridemia, chylomicronemia syndrome, hypothyroidism, PCOS, metabolic syndrome, GERD, Anxiety/Depression, recurrent pancreatitis, recurrent hospitalizations for shine re triglyceridemia requiring plasmapheresis who presents with Upper abdominal pain that started approximately 1 week ago, worsened with food and associated with vomiting. She also reports that her TGwere 5550 last ( 5 days ago) and her sign hanger Dr. Rudd saw her today and directed her to [facility]. from pathology hs discussed with Dr. Willoughby from IR and catheter for plasmapheresis will be placed in a.m. TG were 478 upon discharge on 10/02/18 Code Status: Full Code Nutrition BMI: Body mass index is 32.38 kg/m??. Current diet order: DIET NPO Sips w/Meds, Supplements: no Nutrition consult: no Chin Score: 20 Support Surfaces\Positioning Current type of bed\mattress: Atmosair Current type of sitting surface: recliner Current positioning: right side Current HOB: 25 degrees Postioning\transferring: Independent positioning in bed Repositioned: turned as needed for skin assessment PT\OT consult:no: Medical Devices\Dressings Restraints:no Compression device:no Skin\Wound Assessment Overall dry skin. Left pannus has a purple ruptured blistered area ~1.5x1.5 cm Patient states that she frequently gets these. They are painful until the rupture. She has not spoken to a MD about getting these. No pressure related skin breakdown to coccyx, sacrum, ischials, trochanters, heels, elbows or occiput. No skin breakdown related to medical devices. Education: Plan of care discussed with: patient and RN Questions answered: yes Teach-back methods used Recommendations Pannus purple ruptured blister: Keep clean and dry. Continue to protect with a Mepilex Border dressing. Have recommended that patient speak to her Telephone Services Sales Representative and/or a Director Housekeeping about these repeated occurrences. Keep skin moisturized. Follow all skin care interventions found in the Skin Care Prevention Pathway related to appropriateBraden score. Please notify ore digger if skin condition deteriorates, any other skin care issues arise, or any questions/concerns. Thank You. RAFFY Villatoro, RN, CWOCN Zone: [id number] * Kortney Bowles PA - 10/29/2018 8:11 AM CDTAssociated Order(s): IP CONSULT TO INTERVENTIONAL RADIOLOGY IR Consult PRIMARY CARE PHYSICIAN: Guerrero Middleton PA-C Consult referred by Dr. Louis Consultation for Pheresis catheter. Casandra Doss is an 42 y.o. female who has PMH of IDDM, Hypertriglyceridemia, Hypothyroidism, PCOS,GERD, and other medical problems. Patient hospitalized for TG that were over 5000. Patient has had temporary line for pheresis. ENdocrine would like tunneled line. Patient was admitted last evening. IR consulted for Tunneled Line Past Medical History Body mass index is 32.38 kg/m??.: Patient is Obese with BMI 30-34.9 Past Medical History: Diagnosis Date ??? Anxiety [...] ovarian syndrome) 05/15/2011 ??? Smoker Past Surgical History Past Surgical History: Procedure Laterality Date ??? HX APPENDECTOMY ??? HX HYSTERECTOMY partial due to endometriosis 2006 ??? HX TUNNELED VENOUS CATHETER PLACEMENT Right 09/29/2018 ??? [place] ESOPHAGOGASTRODUODENOSCOPY TRANSORAL DIAGNOSTIC N/A 03/08/2018 ESOPHAGOGASTRODUODENOSCOPY performed by Ceasar Veag MD at [facility] Medications Medications Prior to Admission Medication Sig Dispense Refill Last Dose ??? levothyroxine 200 mcg tablet Take 1 Tablet by mouth daily without food in the morning 30 minutes before eating anything. 30 Tablet 5 Past Week at Unknown time ??? dicyclomine (BENTYL) 10 mg capsule Take 1 Capsule by mouth 4 times daily. 60 Capsule 0 Past Week at Unknown time ??? omega-3 fatty acids-fish oil 300-1,000 mg Capsule Take 2 Capsules by mouth 2 times daily. 10/28/2018 at 0930 ??? metFORMIN (GLUCOPHAGE) 500 mg tablet Take 2 Tablets by mouth 2 times daily with meals. 60 Tablet 0 10/28/2018 at 0930 ??? jttgfxx-mbecml-czohjawx DR (CREON) 60-12-38 capsule Take 2 Capsules by mouth 4 times daily withmeals and at bedtime. 10/27/2018 at Unknown time ??? ondansetron (ZOFRAN ODT) 4 mg Tablet, Rapid Dissolve Dissolve 1 tablet on top of tongue, then swallow with saliva every 6 hours as needed for nausea/vomiting. 30 Tablet 0 10/28/2018 at Unknown time ??? pantoprazole (PROTONIX) 40 mg Tablet, Delayed Release (E.C.) Take 40 mg by mouth 2 times daily . 10/28/2018 at 0930 ??? spironolactone (ALDACTONE) 25 mg tablet Take 25 mg by mouth daily. 10/28/2018 at 0930 ??? rosuvastatin (CRESTOR) 20 mg tablet Take 20 mg by mouth daily at bedtime. 10/27/2018 at 2100 ??? LORazepam (ATIVAN) 1 mg tablet Take 1 mg by mouth 2 times daily as needed for Anxiety . 10/27/2018 at Unknown time ??? citalopram (CeleXA) 40 mg tablet Take 40 mg by mouth daily at bedtime. 10/27/2018 at 2100 ??? fenofibrate (LOFIBRA) 160 mg Oral Tab Take 1 Tab by mouth daily. 90 Tab 0 10/28/2018 at 0930 ??? HYDROcodone-acetaminophen (NORCO) 5-325 mg tablet Take 1 Tablet by mouth every 6 hours as needed for Pain, Severe. Max Daily Amount: 4 Tablets 10 Tablet 0 ??? insulin aspart (NovoLOG) 100 unit/mL injection Inject 1 Units by subcutaneous injection AM : 14u Lunch: 16 u PM : 22 u . 08/20/2018 at Unknown time ??? insulin glargine (LANTUS) 100 unit/mL injection Inject 28 Units by subcutaneous injection 2 times daily 28 units in the AM 38 units in the PM. 08/20/2018 at Unknown time ??? traZODone (DESYREL) 100 mg tablet Take 100 mg by mouth daily at bedtime . Past Week at Unknown time Allergies Allergies Allergen Reactions ??? Green Pepper Hives ??? Adhesive Unknown ??? Aspartame Headache All artificial sweeteners. ??? Adhesive Tape-Silicones Hives Family History Family History Problem Relation Name Age of Onset ??? Diabetes Father ??? High Cholesterol Father ??? Hypertension Father ??? Stroke Mother ??? Heart Disease Mother ??? Thyroid Disease Mother ??? High Cholesterol Mother ??? Heart Disease Maternal Grandmother ??? Diabetes Maternal Grandmother ??? Diabetes Paternal Grandmother ??? Diabetes Mother Social History Social History Socioeconomic History ??? Marital status: Spouse name: Not on file ??? Number of children: Not on file ??? Years of education: Not on file ??? Highest education level: Not on file Occupational History Employer: [employer] Social Needs ??? Financial resource strain: Not [...] Gets together: Three times a week Attends temple service: Never Active member of club or organization: No Attends meetings of clubs or organizations: Never Relationship status: ??? Intimate partner violence: Fear of current or ex partner: No Emotionally abused: No Physically abused: No Forced sexual activity: No Other Topics Concern ??? Not on file Social History Narrative Merged History Encounter REVIEW OF SYSTEMS: General: Denies weight loss, fevers, chills, night sweats, and fatigue. Skin: Denies rashes, lesions or bruising. Allergy: Denies hives or angioedema. HEENT: Denies headaches, change in vision, sinus congestion, dysphagia, and problems with prior intubations. Pulmonary: Denies SOB, cough, hemoptysis, and wheezing. Cardiovascular: Denies CP, palpitations, orthopnea, hx of murmurs. Abdominal: Denies abdominal pain, nausea, vomiting, diarrhea, constipation, hx of bleeding. Genitourinary: Denies hx of frequent UTIs, urinary frequency, dysuria, hematuria, and renal calculi. Extremities: Denies hx of claudication and edema. Musculoskeletal: Denies myalgias, arthralgias, limitations in ROM, and gout. Neurological: Denies hx of CVAs, TIAs, syncopal episodes, and seizures. Hematologic: Denies hx of bleeding disorders, anemia, and coagulopathies. PHYSICAL EXAM: Vital Signs: Blood pressure 102/48, pulse 79, temperature 97.8 ??F (36.6 ??C), temperature source Oral, resp. rate 11, height 5' 5 (1.651 m), weight 88.3 kg (194 lb 9.6 oz), SpO2 93 %, not currentlybreastfeeding. General: Patient in NAD. Patient appears stated age. Skin: warm; dry; without rashes, lesions, or bruising HEENT: NC/AT, PERRLA. Pulmonary: CTAB without wheezing/rhonchi/rales Cardiovascular: normal S1 and S2, RRR without murmurs Abdominal: positive bs throughout, soft, nontender, nondistended Extremities: warm, b/l UE and LE pulses 2+, no cyanosis or edema noted. Musculoskeletal: full active ROM of UE and LEs Neurologic: Awake, alert and oriented. Non focal. Labs Lab Results Component Value Date/Time WBC 10.5 (H) 10/28/2018 03:56 PM HEMOGLOBIN 13.9 10/28/2018 03:56 PM HEMATOCRIT 40.0 10/28/2018 03:56 PM PLATELETS 338 10/28/2018 03:56 PM MCV 92.2 10/28/2018 03:56 PM Lab Results Component Value Date/Time SODIUM 134 (L) 10/29/2018 05:15 AM POTASSIUM 3.6 10/29/2018 05:15 AM CHLORIDE 100 10/29/2018 05:15 AM CO2 23 10/29/2018 05:15 AM CALCIUM 8.1 (L) 10/29/2018 05:15 AM BUN 7 10/29/2018 05:15 AM CREATININE 0.55 10/29/2018 05:15 AM GLUCOSE 84 10/29/2018 05:15 AM ANION GAP 11 10/29/2018 05:15 AM Assessment: Active Hospital Problems Diagnosis ??? Left upper quadrant pain ??? Acquired hypothyroidism ??? Recurrent pancreatitis ??? Type 2 diabetes mellitus without complication, with long-term current use of insulin ??? Chylomicronemia syndrome ??? Hypertriglyceridemia ??? PCOS (polycystic ovarian syndrome) Resolved Hospital Problems No resolved problems to display. Plan: 1. IR consulted for Tunneled Pheresis Catheter. 2. Labs and Vitals reviewed. 3. Patient is NPO. 4. Discussed procedure with the patient and was given all risks and benefits and alternate treatments. 5. Patient willing to proceed with procedure. 6. Informed consent signed by the patient. I spent 40 minutes with the patient explaining procedure and obtaining medical history. * Bibiana Kahn RN - 10/28/2018 7:41 PM CDTAssociated Order(s): IP CONSULT TO IV TEAM IV CONSULT: Request for IV Consult. Reviewed electronic record and completed a vascular assessment. PIV inserted with no difficulty- documented in Doc Flowsheets (Figment). Peripheral IV appropriate at this time- needed 2nd line for Insulin. RN notified. documented in this encounter ED Notes * Hans Bee RN - 10/28/2018 5:30 PM CDT Report to Damaris OLGUIN for 4228. RN to transport. * Hans Bee RN - 10/28/2018 5:08 PM CDT Hospitalist at bedside. 2LNC placed due to O2 sat 90% on room air. * Hans Bee RN - 10/28/2018 4:57 PM CDT Pt updated on room assignment and status. Pt given labeled belonging bag. Patient/family has been informed about benefits and any potential clinically significant side effects or other concerns regarding the administration of the drug they have just been given. * Hans Bee RN - 10/28/2018 4:25 PM CDT MD at bedside. * Hans Bee RN - 10/28/2018 4:18 PM CDT Agree with triage note. Pt reports triglycerides were elevated last week. Pt reports plan is to have a port placed tomorrow and start biweekly plasmapheresis. Hx similar in the past. Pt reports beingsent to ER for pain control. Pt reports pain to LUQ abdomen, nausea, constipation and small amount o f diarrhea. No distress noted. Family at bedside. Pt aware of wait time for labs. * Hans Bee RN - 10/28/2018 4:13 PM CDT Lab called to add on lipase and lipid panel. * Karen Hassan RN - 10/28/2018 3:47 PM CDT [facility] ED Adult Female Abdominal Pain Protocol [facility] Approved by: [facility] - Medical Executive Committee Approval Date: ORDERS ARE ENTERED ???PER PROTOCOL?? Nursing Orders: o Insert peripheral IV (excessive vomiting or diarrhea) Laboratory Orders: o CBC with diff ([id number]) o CMP (LAB17) o If female of childbearing age: POC Urine HCG (POC7) or HCG Qualitative urine (TLW628) if sending to lab o Urinalysis with Reflex Microscopy ([id number]) o Serum HCG (if knowingly ) (TNK662) o Obtain serum lipase (LAB99) if upper abdominal pain o Draw and send extra tubes to lab (ED hold) ([id number]) Diagnostic Test Orders: o If RUQ pain, [...] NPO until otherwise ordered by attending physician * Phoenix Livingston MD - 10/28/2018 2:49 PM CDT HISTORY OF PRESENT ILLNESS Casandra Doss, a 42 y.o. female presents to the ED with a Chief Complaint of Abnormal Lab Results Subjective 4:26 PM: Casandra Doss is a 42 y.o. female with a history of hypertriglyceridemia, DM type 2, GERD,HLD, and PCOS, who presents to the Emergency Department with complaints of abnormal lab results. Patient had blood work drawn on Sunday 10/22 which revealed her triglycerides are 478. Patient reports abdominal pain, nausea, and headache x1 week. One episode of vomiting. Denies diarrhea or fevers. She was seen by Dr. Arteaga (pathology) while waiting for a room here in ED. Patient is scheduledto have a port placed tomorrow for biweekly plasmapheresis. Physician(s): Guerrero Middleton PA-C History provided by: The patient Arrived by: Private vehicle Arrived from: Home The history is provided by the patient. The patient arrived by private vehicle. The patient arrivedfrom home. REVIEW OF SYSTEMS Review of Systems Constitutional: Negative for chills and fever. +High triglyceride result of 478 HENT: Negative for sore throat. Respiratory: Negative for cough, chest tightness, shortness of breath and wheezing. Cardiovascular: Negative for chest pain and palpitations. Gastrointestinal: Positive for abdominal pain, nausea and vomiting. Negative for diarrhea. Endocrine: Negative for polyuria. Genitourinary: Negative for difficulty urinating, dysuria, flank pain, frequency, hematuria and urgency. Musculoskeletal: Negative for back pain and neck pain. Skin: Negative for rash. Neurological: Positive for headaches. Negative for weakness. All other systems reviewed and are negative. [...] used smokeless tobacco. She reports that she currently engages in sexual activity and has had partners who are Male. She reports that she [...] these medications which have NOT CHANGED Details levothyroxine 200 mcg tablet Take 1 Tablet by mouth daily without food in the morning 30 minutes before eating anything. Qty: 30 Tablet, Refills: 5 Comments: Must make appointment for refills Associated Diagnoses: Hypothyroidism dicyclomine (BENTYL) 10 mg capsule Take 1 Capsule by mouth 4 times daily. Qty: 60 Capsule, Refills: 0 omega-3 fatty acids-fish oil 300-1,000 mg Capsule Take 2 Capsules by mouth 2 times daily. metFORMIN (GLUCOPHAGE) 500 mg tablet Take 2 Tablets by mouth 2 times daily with meals. Qty: 60 Tablet, Refills: 0 evuyfki-voqgdy-zfeilvkg DR (CREON) 60-12-38 capsule Take 2 Capsules by mouth 4 times daily with meals and at bedtime. ondansetron (ZOFRAN ODT) 4 mg Tablet, Rapid Dissolve Dissolve 1 tablet on top of tongue, then swallow with saliva every 6 hours as needed for nausea/vomiting. Qty: 30 Tablet, Refills: 0 pantoprazole (PROTONIX) 40 mg Tablet, Delayed Release (E.C.) Take 40 mg by mouth 2 times daily . spironolactone (ALDACTONE) 25 mg tablet Take 25 mg by mouth daily. rosuvastatin (CRESTOR) 20 mg tablet Take 20 mg by mouth daily at bedtime. LORazepam (ATIVAN) 1 mg tablet Take 1 mg by mouth 2 times daily as needed for Anxiety . citalopram (CeleXA) 40 mg tablet Take 40 mg by mouth daily at bedtime. fenofibrate (LOFIBRA) 160 mg Oral Tab Take 1 Tab by mouth daily. Qty: 90 Tab, Refills: 0 HYDROcodone-acetaminophen (NORCO) 5-325 mg tablet Take 1 Tablet by mouth every 6 hours as needed for Pain, Severe. Max Daily Amount: 4 Tablets Qty: 10 Tablet, Refills: 0 Associated Diagnoses: Generalized abdominal pain; Hypertriglyceridemia insulin aspart (NovoLOG) 100 unit/mL injection Inject 1 Units by subcutaneous injection AM : 14 u Lunch: 16 u PM : 22 u . insulin glargine (LANTUS) 100 unit/mL injection Inject 28 Units by subcutaneous injection 2 times daily 28 units in the AM 38 units in the PM. traZODone (DESYREL) 100 mg tablet Take 100 mg by mouth daily at bedtime . Objective PHYSICAL EXAM INITIAL VS BP: 137/84 (10/28/18 1450), Heart Rate: 111 bpm (10/28/18 1450), Resp: 20 (10/28/18 1450), Pulse: (!) 101 (10/28/18 1655), Temp: 98.3 ??F (36.8 ??C) (10/28/18 1450), Temp src: Oral (10/28/18 1450), SpO2: 99 % (10/28/18 1450), Height: 5' 7 (170.2 cm) (10/28/18 1450), Weight: 89.4 kg (197 lb) (10/28/18 1450), BMI (Calculated): 30.85 (10/28/18 1450) No LMP recorded. Patient has had a hysterectomy. Physical Exam Constitutional: She is oriented to person, place, and time. No distress. HENT: Head: Normocephalic and atraumatic. Mouth/Throat: Oropharynx is clear and moist. No ketones on breath. Eyes: Conjunctivae are normal. Neck: Normal range of motion. Cardiovascular: Normal rate, regular rhythm, normal heart sounds and intact distal pulses. No murmur heard. Pulmonary/Chest: Effort normal and breath sounds normal. She has no wheezes. Abdominal: Soft. Bowel sounds are normal. She exhibits no distension. There is tenderness (mild) inthe epigastric area. Musculoskeletal: Normal range of motion. She exhibits no edema. Neurological: She is alert and oriented to person, place, and time. Skin: Skin is warm and dry. No rash noted. Psychiatric: She has a normal mood and affect. Her behavior is normal. Vitals reviewed. DIAGNOSTICS LAB: CBC WITH DIFFERENTIAL - Abnormal Result Value WBC 10.5 (*) RBC 4.34 HEMOGLOBIN 13.9 HEMATOCRIT 40.0 MCV 92.2 MCH 32.0 MCHC 34.8 RDW 15.4 (*) RDW-STDEV 49.8 (*) PLATELETS 338 MPV 9.4 URINALYSIS WITH REFLEX MICROSCOPIC - Abnormal COLOR UA Yellow CLARITY UA Slightly Cloudy (*) SPECIFIC GRAVITY UA 1.030 PH UA 6.0 LEUKOCYTE ESTERASE UA Negative NITRITE UA Negative PROTEIN UA Negative GLUCOSE UA 3+ (*) KETONES UA Trace (*) UROBILINOGEN UA Normal BILIRUBIN UA Negative BLOOD UA Negative WBC UA 3-5 (*) RBC UA 0-2 BACTERIA UA 1+ (*) EPITHELIAL CELLS, URINE 11-25 (*) POC GLUCOSE - Abnormal POC GLUCOSE 305 (*) COMMENT, GLU POC Repeated Glucose COMMENT 2, GLU POC Notified RN/MD SOCIOLOGY PROFESSOR NAME HANS BEE COMPREHENSIVE METABOLIC PANEL LIPID PANEL LIPID PANEL RADIOLOGY: No orders to display EKG: NSR, rate 89, normal axis and intervals. T wave inversion of leads III and aVF. No STEMI or BBB. PROCEDURES Procedures MEDICAL DECISION MAKING AND PLAN OF CARE ---On initial encounter, examined patient and discussed plan to check labs and UA. Patient understands and agrees to plan. All questions answered at this time. 4:31 PM: Discussed case with Dr. Louis, [facility] Hospitalist. She will admit the patient to Step Down. 4:40 PM: Per message, Dr. Arteaga advises patient be kept NPO after midnight, no DVT prophylaxis.Dr. Willoughby with IR is aware. Updated patient on results, diagnosis, and plan for admission. Patient agrees with the plan. The opportunity for questions was given and questions were answered to the patient's satisfaction. All questions and concerns have been addressed. ED provider and ED nurse verbally discussed patient plan of care at this time. MDM Summary Statement: 42-year-old female presents with hypertriglyceridemia. She will be admitted to have a dual catheterport placed in the morning by IR, who is aware of the patient, for plasmapheresis. I have reviewed previous: notes and labs I have reviewed current: labs Consults: hospitalist Medications Administered During the ED Stay from 10/28/2018 1449 to 10/28/2018 1752 Date/Time Order Dose Route Action 10/28/2018 1600 ondansetron (ZOFRAN) 4 mg/2 mL injection 4 mg 4 mg IV Given-See Override 10/28/2018 1559 ondansetron (ZOFRAN) 4 mg/2 mL injection 4 mg 4 mg IV Given 10/28/2018 1655 morphine 4 mg/mL injection 4 mg 4 mg IV Given Current Discharge Medication List CONTINUE these medications which have NOT CHANGED Details levothyroxine 200 mcg tablet Take 1 Tablet by mouth daily without food in the morning 30 minutes before eating anything. Qty: 30 Tablet, Refills: 5 Comments: Must make appointment for refills Associated Diagnoses: Hypothyroidism dicyclomine (BENTYL) 10 mg capsule Take 1 Capsule by mouth 4 times daily. Qty: 60 Capsule, Refills: 0 omega-3 fatty acids-fish oil 300-1,000 mg Capsule Take 2 Capsules by mouth 2 times daily. metFORMIN (GLUCOPHAGE) 500 mg tablet Take 2 Tablets by mouth 2 times daily with meals. Qty: 60 Tablet, Refills: [address]-javwgr-owzyijfg DR (CREON) 60-12-38 capsule Take 2 Capsules by mouth 4 times daily with meals and at bedtime. ondansetron (ZOFRAN ODT) 4 mg Tablet, Rapid Dissolve Dissolve 1 tablet on top of tongue, then swallow with saliva every 6 hours as needed for nausea/vomiting. Qty: 30 Tablet, Refills: 0 pantoprazole (PROTONIX) 40 mg Tablet, Delayed Release (E.C.) Take 40 mg by mouth 2 times daily . spironolactone (ALDACTONE) 25 mg tablet Take 25 mg by mouth daily. rosuvastatin (CRESTOR) 20 mg tablet Take 20 mg by mouth daily at bedtime. LORazepam (ATIVAN) 1 mg tablet Take 1 mg by mouth 2 times daily as needed for Anxiety . citalopram (CeleXA) 40 mg tablet Take 40 mg by mouth daily at bedtime. fenofibrate (LOFIBRA) 160 mg Oral Tab Take 1 Tab by mouth daily. Qty: 90 Tab, Refills: 0 HYDROcodone-acetaminophen (NORCO) 5-325 mg tablet Take 1 Tablet by mouth every 6 hours as needed for Pain, Severe. Max Daily Amount: 4 Tablets Qty: 10 Tablet, Refills: 0 Associated Diagnoses: Generalized abdominal pain; Hypertriglyceridemia insulin aspart (NovoLOG) 100 unit/mL injection Inject 1 Units by subcutaneous injection AM : 14 u Lunch: 16 u PM : 22 u . insulin glargine (LANTUS) 100 unit/mL injection Inject 28 Units by subcutaneous injection 2 times daily 28 units in the AM 38 units in the PM. traZODone (DESYREL) 100 mg tablet Take 100 mg by mouth daily at bedtime . LAST VS BP: 109/78 (10/28/181799), Heart Rate: 82 bpm (10/28/181799), Resp: 14 (10/28/181799), Pulse: 81(10/28/181799), Temp: 98.2 ??F (36.8 ??C) (10/28/181799), Temp src: Oral (10/28/181799), SpO2: 98 % (10/28/181799) CLINICAL IMPRESSION Final diagnoses: [E78.1] Hypertriglyceridemia (Primary) DISPOSITION, EDUCATION AND MEDICATION RECONCILIATION Medications reconciled. See after visit summary for patient education on discharged patients. ED Disposition ED Disposition Condition User Date/Time Comment Admit Stable Phoenix Livingston MD Tue Oct 28, 2018 5:13 PM ATTESTATION STATEMENTS This note has been prepared by Savana Lopez acting as a scribe for Dr. Phoenix Livingston on 10/28/2018 at 6:23 PM. The scribe's documentation has been prepared under my direction and personally reviewed by me, JOSE,in its entirety on 10/28/18 at 6:23 PM. I confirm that the note above accurately reflects all work,treatment, procedures, and medical decision making performed by me. documented in this encounter Miscellaneous Notes * Care Plan - Humaira Regalado RN - 10/31/2018 5:28 AM CDT Uneventful shift. Patient states she is feeling better this morning. Denies abdominal pain. Triglycerides 599 this am. VSS. * Care Plan - Priya Salazar RN - 10/29/2018 3:56 PM CDT Initial Discharge Planning Assessment completed. Patient sleeping post plasmapheresis. Care Management visited with patient's José Miguel, and discussed Care Management role and discharge planning. Prior to admission, patient's functional level was independently caring for self. Prior to admission, patient resided with her in a one-story home with 1 ERYN. Prior to admission, patient did not receive any assistance or services. Primary caregiver identified as patient's spouse José Miguel. Patient does want caregiver involved in discharge planning. Durable medical equipment at home includes glucose monitor. Patient has not had a stay at an acute care hospital in the last 30 days. If patient will go to SNF at sd, patient does not need a PASARR screening to be started (ie, prior psych admission or intensive services, MR/DD diagnosis prior to the age of 22) Readmission Risk (patient becomes high risk with a score of 8 or greater) 5 Total Score 5 Prior Hospitalizations Primary Emergency Contact: José Miguel Doss PCP verified as Guerrero Middleton PA-C. Patient's insurance verified as Payor: [employer] / Plan: ALL SAVERS CHOICE / Product Type: Commercial / The patient's preferred pharmacy is [facility] [address] [place] [address] NASIM Discussed discharge goals and no needs anticipated at this time. Care Management will continue to follow and assist as needed. Day 1 - Current ([place] Pathway: Adult and Obstetrics) Patient, family, or healthcare designee is participating in individual care plan process Outcome: Met Problem: Discharge Planning Goal: Identify discharge needs upon admission and through discharge Description Outcome: Progressing Priya Salazar RN, MSN Advertising Consultant [phone] * Treatment Plan - Marcus Cosme RN - 10/29/2018 9:04 AM CDT [facility] Skin Care Injury Prevention and Treatment Protocol Approved by: [facility] - Medical Executive Committee Date: 05/16/2018 ORDERS ARE ENTERED ???PER PROTOCOL?? Enter the protocol in the patient???s electronic health record using CMEe: .woundcarepathwayprotocol Nursing Orders: o When a patient age 18 years or older has: ??? a documented Chin score of 18 or less or a Chin sub score of 2 or 1, ??? or a documented condition on the problem [...] Wound Care Algorithm. * Care Plan - Humaira Regalado RN - 10/29/2018 6:35 AM CDT Insulin gtts started this shift and continues to run now. Blood sugars have stayed within a normal range. Patient complains of severe abdominal pain. Morphine and norco given as needed. VSS. SBP 90-100s. Afebrile. Patient up to bathroom with standby assist. documented in this encounter Plan of Treatment Upcoming Encounters Date Type Department Care Team (Late st Contact Info) Description 09/14/2024 3:00 PM CDT Office Visit [facility] [id number] [place] [address] Marlys Mayer MD [address] [place] [address] documented as of this encounter Procedures Procedure Name Priority Date/Time Associated Diagnosis Comments POC GLUCOSE Routine 10/31/2018 1:49 PM CDT POC GLUCOSE Routine 10/31/2018 9:54 AM CDT PROTIME-INR Routine 10/31/2018 3:19 AM CDT Mixed hyperlipidemia Hypertriglyceridemia PCOS (polycystic ovarian syndrome) Chylomicronemia syndrome Type 2 diabetes mellitus without complication, with long-term current use of insulin Left upper quadrant pain Acquired hypothyroidism Recurrent pancreatitis Metabolic syndrome History of gestational diabetes Family history of diabetes mellitus Family history of early CAD Hypothyroidism, unspecified type Nausea vomiting and diarrhea Depression with anxiety Tobacco use Hyponatremia Gastroesophageal reflux disease, esophagitis presence not specified Epigastric pain History of plasmapheresis History of pancreatitis CBC WITHOUT DIFFERENTIAL Routine 10/31/2018 3:19 AM CDT Mixed hyperlipidemia Hypertriglyceridemia PCOS (polycystic ovarian syndrome) Chylomicronemia syndrome Type 2 diabetes mellitus without complication, with long-term current use of insulin Left upper quadrant pain Acquired hypothyroidism Recurrent pancreatitis Metabolic syndrome History of gestational diabetes Family history of diabetes mellitus Family history of early CAD Hypothyroidism, unspecified type Nausea vomiting and diarrhea Depression with anxiety Tobacco use Hyponatremia Gastroesophageal reflux disease, esophagitis presence not specified Epigastric pain History of plasmapheresis History of pancreatitis TRIGLYCERIDE Routine 10/31/2018 3:19 AM CDT Mixed hyperlipidemia Hypertriglyceridemia PCOS (polycystic ovarian syndrome) Chylomicronemia syndrome Type 2 diabetes mellitus without complication, with long-term current use of insulin Left upper quadrant pain Acquired hypothyroidism Recurrent pancreatitis Metabolic syndrome History of gestational diabetes Family history of diabetes mellitus Family history of early CAD Hypothyroidism, unspecified type Nausea vomiting and diarrhea Depression with anxiety Tobacco use Hyponatremia Gastroesophageal reflux disease, esophagitis presence not specified Epigastric pain History of plasmapheresis History of pancreatitis POC GLUCOSE Routine 10/30/2018 10:44 PM CDT POC GLUCOSE Routine 10/30/2018 6:51 PM CDT POC GLUCOSE Routine 10/30/2018 1:57 PM CDT BASIC METABOLIC PANEL Routine 10/30/2018 10:31 AM CDT POC GLUCOSE Routine 10/30/2018 10:27 AM CDT BASIC METABOLIC PANEL Routine 10/30/2018 7:37 AM CDT PROTIME-INR Routine 10/30/2018 6:05 AM CDT Mixed hyperlipidemia Hypertriglyceridemia PCOS (polycystic ovarian syndrome) Chylomicronemia syndrome Type 2 diabetes mellitus without complication, with long-term current use of insulin Left upper quadrant pain Acquired hypothyroidism Recurrent pancreatitis Metabolic syndrome History of gestational diabetes Family history of diabetes mellitus Family history of early CAD Hypothyroidism, unspecified type Nausea vomiting and diarrhea Depression with anxiety Tobacco use Hyponatremia Gastroesophageal reflux disease, esophagitis presence not specified Epigastric pain History of plasmapheresis History of pancreatitis CBC WITHOUT DIFFERENTIAL Routine 10/30/2018 6:05 AM CDT Mixed hyperlipidemia Hypertriglyceridemia PCOS (polycystic ovarian syndrome) Chylomicronemia syndrome Type 2 diabetes mellitus without complication, with long-term current use of insulin Left upper quadrant pain Acquired hypothyroidism Recurrent pancreatitis Metabolic syndrome History of gestational diabetes Family history of diabetes mellitus Family history of early CAD Hypothyroidism, unspecified type Nausea vomiting and diarrhea Depression with anxiety Tobacco use Hyponatremia Gastroesophageal reflux disease, esophagitis presence not specified Epigastric pain History of plasmapheresis History of pancreatitis TRIGLYCERIDE Routine 10/30/2018 6:05 AM CDT Mixed hyperlipidemia Hypertriglyceridemia PCOS (polycystic ovarian syndrome) Chylomicronemia syndrome Type 2 diabetes mellitus without complication, with long-term current use of insulin Left upper quadrant pain Acquired hypothyroidism Recurrent pancreatitis Metabolic syndrome History of gestational diabetes Family history of diabetes mellitus Family history of early CAD Hypothyroidism, unspecified type Nausea vomiting and diarrhea Depression with anxiety Tobacco use Hyponatremia Gastroesophageal reflux disease, esophagitis presence not specified Epigastric pain History of plasmapheresis History of pancreatitis POC GLUCOSE Routine 10/29/2018 10:25 PM CDT POC GLUCOSE Routine 10/29/2018 7:40 PM CDT BASIC METABOLIC PANEL Routine 10/29/2018 6:15 PM CDT BLOOD GAS ARTERIAL Stat 10/29/2018 5: 02 PM CDT POC GLUCOSE Routine 10/29/2018 4:49 PM CDT POC GLUCOSE Routine 10/29/2018 2:28 PM CDT POC GLUCOSE Routine 10/29/2018 1:23 PM CDT IR VENOUS NECK Routine 10/29/2018 12:15 PM CDT POC GLUCOSE Routine 10/29/2018 12:04 PM CDT POC GLUCOSE Routine 10/29/2018 10:56 AM CDT POC GLUCOSE Routine 10/29/2018 10:03 AM CDT POC GLUCOSE Routine 10/29/2018 9:05 AM CDT POC GLUCOSE Routine 10/29/2018 8:02 AM CDT POC GLUCOSE Routine 10/29/2018 6:56 AM CDT POC GLUCOSE Routine 10/29/2018 5:55 AM CDT TRIGLYCERIDE Routine 10/29/2018 5:15 AM CDT BASIC METABOLIC PANEL Routine 10/29/2018 5:15 AM CDT POC GLUCOSE Routine 10/29/2018 4:59 AM CDT POC GLUCOSE Routine 10/29/2018 3:50 AM CDT POC GLUCOSE Routine 10/29/2018 2:54 AM CDT POC GLUCOSE Routine 10/29/2018 1:52 AM CDT POC GLUCOSE Routine 10/29/2018 12:43 AM CDT POC GLUCOSE Routine 10/29/2018 12:12 AM CDT POC GLUCOSE Routine 10/28/2018 11:42 PM CDT POC GLUCOSE Routine 10/28/2018 11:06 PM CDT POC GLUCOSE Routine 10/28/2018 9:58 PM CDT POC GLUCOSE Routine 10/28/2018 8:56 PM CDT POC GLUCOSE Routine 10/28/2018 7:55 PM CDT POC GLUCOSE Stat 10/28/2018 5:20 PM CDT EKG 12-LEAD Stat 10/28/2018 5:14 PM CDT URINALYSIS W/REFLEX MICROSCOPIC Stat 10/28/2018 4:00 PM CDT DIFFERENTIAL, MANUAL Stat 10/28/2018 3:56 PM CDT CBC WITH DIFFERENTIAL Stat 10/28/2018 3:56 PM CDT LIPASE Stat 10/28/2018 3:56 PM CDT COMPREHENSIVE METABOLIC PANEL Stat 10/28/2018 3:56 PM CDT documented in this encounter Results * (ABNORMAL) POC GLUCOSE (10/31/2018 1:49 PM CDT) GLUCOSE POC 170(H) 74 - 99 mg/dL 10/31/2018 1:49 PM CDT [facility] [employer] [facility] SOCIOLOGY PROFESSOR NAME POC YAMIL DEL TORO 10/31/2018 1:49 PM CDT [facility] [employer] [facility] Whole blood specimen (specimen) 10/31/2018 1:49 PM CDT 10/31/2018 2:09 PM CDT Kim Larsen DO POINT OF CARE TESTING [facility] [employer] [facility] CLIA# [id number] [address] [place] [address] * POC GLUCOSE (10/31/2018 9:54 AM CDT) GLUCOSE POC 99 74 - 99 mg/dL 10/31/2018 9:54 AM CDT [facility] LABORATORY [facility] SOCIOLOGY PROFESSOR NAME POC LYNNETTE DELACRUZ 10/31/2018 9:54 AM CDT [facility] Whole blood specimen (specimen) 10/31/2018 9:54 AM CDT 10/31/2018 10:11 AM CDT Kim Larsen DO POINT OF CARE TESTING [facility] [employer] [facility] CLIA# [id number] [address] [place] [address] * PROTIME-INR (10/31/2018 3:19 AM CDT) PROTIME 13.9 12.7 - 15.1 Seconds 10/31/2018 3:52 AM CDT [facility] INR 1.1 0.9 - 1.1 10/31/2018 3:52 AM CDT [facility] Blood Venipuncture / Unknown 10/31/2018 3:19 AM CDT 10/31/2018 3:31 AM CDT Narrative [facility] - 10/31/2018 3:52 AM CDT INR Therapeutic Range: Adult: ?? 2.0 - 3.0 for pulmonary embolism or prophylaxis against venous ?thrombosis or systemic embolization. 2.0 - 3.0 for patients with tissue heart valves. 2.5 - 3.5 for patients with mechanical heart valves or post NV. Pediatric ??(12 years and under): 1.5 - 3.0 Although the target range in children is not well established, ?INR values of 1.5 - 3.0 are recommended for most patients. ?Higher values have been used in children with prosthetic ?cardiac valves and hereditary clotting disorders. [place] (<3 days) therapeutic ranges have not been established. Alize Arteaga MD HEMATOLOGY ORDE MAGGIE Performing Organization Address [facility] Co de Phone Number [facility] [employer] [facility]# [id number] [address] [place] [address] * (ABNORMAL) TRIGLYCERIDE (10/31/2018 3:19 AM CDT) Pathologist [facility] TRIGLYCERIDE 599(H) <150 mg/dL 10/31/2018 4:13 AM CDT [facility] [employer] [facility] Blood Venipuncture / Unknown 10/31/2018 3:19 AM CDT 10/31/2018 3:31 AM CDT [facility] [employer] [facility] - 10/31/2018 4:13 AM CDT TRIGLYCERIDES ? mg/dL Normal ?< 150 Borderline High ?150 - 199 High ? 200 - 499 Very High ? >= 500 Based on AHA/NCEP Guidelines. Alize Arteaga MD CHEMISTRY ORDER OSVALDO Performing Organization Address [facility] Co de Phone Number [facility] [employer] [facility]# [id number] [address] [place] [address] * (ABNORMAL) CBC WITHOUT DIFFERENTIAL (10/31/2018 3:19 AM CDT) WBC 7.3 4.0 - 9.8 K/uL 10/31/2018 3:45 AM CDT [facility] [employer] [facility] RBC 4.14 3.90 - 4.90 M/uL 10/31/2018 3:45 AM CDT [facility] HEMOGLOBIN 11.9 11.8 - 14.8 g/dL 10/31/2018 3:45 AM CDT [employer] [facility] - [facility] HEMATOCRIT 37.0 35.5 - 44.0 % 10/31/2018 3:45 AM CDT [employer] [facility] MCV 89.4 82.0 - 99.0 fL 10/31/2018 3:45 AM CDT [employer] [facility] MCH 28.7 27.2 - 32.6 pg 10/31/2018 3:45 AM CDT [employer] [facility] MCHC 32.2 31.5 - 35.5 g/dL 10/31/2018 3:45 AM CDT [facility]ATORY SERVICES - [facility] PLATELETS 180 140 - 350 K/uL 10/31/2018 3:45 AM CDT [employer] [facility] MPV 9.9 9.3 - 12.4 fL 10/31/2018 3:45 AM CDT [employer] [facility] - [facility] RDW 15.9(H) 11.5 - 14.5 % 10/31/2018 3:45 AM T [employer] [facility] RDW-STDEV 51.8(H) 37.1 - 48.7 fL 10/31/2018 3:45 AM CDT [employer] [facility] Blood Venipuncture / Unknown 10/31/2018 3:19 AM CDT 10/31/2018 3:31 AM CDT Alize Arteaga MD HEMATOLOGY YONI SERRANO [facility] Organization Address City/State/ZIP Co de Phone Number [facility] [employer] SERVICES [facility]# [id number] [address] [place] [address] * (ABNORMAL) POC GLUCOSE (10/30/2018 10:44 PM CDT) GLUCOSE POC 103(H) 74 - 99 mg/dL 10/30/2018 10:44 PM CDT [employer] [facility]AT[facility] SERVICES [facility] COMMENT, GLU POC Notified RN/MD 10/30/2018 10:44 PM CDT [employer] [facility] SOCIOLOGY PROFESSOR NAME POC JESSICA REGALADO 10/30/2018 10:44 PM CDT [employer] [facility] Whole blood specimen (specimen) 10/30/2018 10:44 PM CDT 10/30/2018 11:02 PM CDT Kim Larsen DO POINT OF CARE TESTING Performing Organization Address [facility]/ZIP Co de Phone Number [facility] CLIA# [id number] [address] [place] [address] * (ABNORMAL) POC GLUCOSE (10/30/2018 6:51 PM CDT) GLUCOSE POC 157(H) 74 - 99 mg/dL 10/30/2018 6:51 PM CDT [facility] LABORATORY SERVICES [facility] COMMENT, GLU POC Notified RN/MD 10/30/2018 6:51 PM CDT [facility] SOCIOLOGY PROFESSOR NAME POC ELIGIO MARTIN 10/30/2018 6:51 PM CDT [facility] Whole blood specimen (specimen) 10/30/2018 6:51 PM CDT 10/30/2018 7:11 PM CDT Kim Larsen DO POINT OF CARE TESTING Performing Organization Address [facility] Co de Phone Number [facility] [employer] [id number] [address] [place] [address] * (ABNORMAL) POC GLUCOSE (10/30/2018 1:57 PM CDT) GLUCOSE POC 112(H) 74 - 99 mg/dL 10/30/2018 1:57 PM CDT [facility] LAB[facility] SOCIOLOGY PROFESSOR NAME POC LYNNETTE DELACRUZ 10/30/2018 1:57 PM CDT [facility] Whole blood specimen (specimen) 10/30/2018 1:57 PM CDT 10/30/2018 2:09 PM CDT Kim Larsen DO POINT OF CARE TESTING [facility]ATORY SERVICES - [facility] CLIA# [id number] [address] [place] [address] * (ABNORMAL) BASIC METABOLIC PANEL (10/30/2018 10:31 AM CDT) SODIUM 137 136 - 145 mmol/L 10/30/2018 11:09 AM [facility] [employer] [facility] POTASSIUM 3.8 3.5 - 5.0 mmol/L 10/30/2018 11:09 AM [facility] [employer] [facility] - [facility] Comment:Moderate hemolysis p resent. Can cause significant falsely elevated result. Redraw if indicated. CHLORIDE 108(H) 98 - 107 mmol/L 10/30/2018 11:09 AM [facility] [employer] [facility] CO2 19(L) 22 - 29 mmol/L 10/30/2018 11:09 AM [facility] [employer] [facility] CALCIUM 7.8(L) 8.6 - 10.2 mg/dL 10/30/2018 11:09 AM [facility] [employer] [facility] BUN 3(L) 6 - 20 mg/dL 10/30/2018 11:09 AM [facility] [employer] [facility] CREATININE 0.39(L) 0.51 - 0.95 mg/dL 10/30/2018 11:09 AM [facility] [employer] [facility] GLUCOSE 156(H) 74 - 99 mg/dL 10/30/2018 11:09 AM [facility] [employer] [facility] GFR >60 >=60 mL/min/1.7 3 sq meter 10/30/2018 11:09 AM [facility] [employer] [facility] Comment: eGFR has not been validated [...] GFR, >60 >=60 mL/min/1.7 3 sq meter 10/30/2018 11:09 AM CDT [facility] LABORAT[facility] ANION GAP 10 8 - 16 mmol/L 10/30/2018 11:09 AM T [facility] Blood Venipuncture / Unknown 10/30/2018 10:31 AM CDT 10/30/2018 10:38 AM CDT Kim Larsen DO CHEMISTR Y ORDERABLES [facility] [employer] [facility] CLIA# [id number] [address] [place] [address] * (ABNORMAL) POC GLUCOSE (10/30/2018 10:27 AM CDT) GLUCOSE POC 146(H) 74 - 99 mg/dL 10/30/2018 10:27 AM CDT [facility] [employer] [facility] SOCIOLOGY PROFESSOR NAME YAMIL FARIAS 10/30/2018 10:27 AM CDT [facility] [employer] [facility] Whole blood specimen (specimen) 10/30/2018 10:27 AM CDT 10/30/2018 10:49 AM CDT Kim Larsen DO POINT OF CARE TESTING Performing Organization Address [facility]/ZIP Co de Phone Number [facility] [employer] [facility] CLIA# [id number] [address] [place] [address] * (ABNORMAL) BASIC METABOLIC PANEL (10/30/2018 7:37 AM CDT) SODIUM 134(L) 136 - 145 mmol/L 10/30/2018 8:24 AM T [facility] [employer] [facility] POTASSIUM 3.5 - 5.0 mmol/L 10/30/2018 8:24 AM T [facility] Comment: Approved to report results except K+ (due to specimen hemolysis) per Yamil Del Toro at 8:57 AM on 10/30/2018. Test cannot be performed due to gross hemolysis present. ??Redraw if indicated. CHLORIDE 104 98 - 107 mmol/L 10/30/2018 8:24 AM T [employer] [facility] SERVICES [facility] CO2 21(L) 22 - 29 mmol/L 10/30/2018 8:24 AM T [employer] [facility] CALCIUM 7.7(L) 8.6 - 10.2 mg/dL 10/30/2018 8:24 AM T [employer] [facility] BUN 4(L) 6 - 20 mg/dL 10/30/2018 8:24 AM [facility] [employer] [facility] CREATININE 0.41(L) 0.51 - 0.95 mg/dL 10/30/2018 8:24 AM [facility] [employer] [facility] GLUCOSE 159(H) 74 - 99 mg/dL 10/30/2018 8:24 AM T [employer] [facility] GFR >60 >=60 mL/min/1.7 3 sq meter 10/30/2018 8:24 AM [facility] [employer] [facility] Comment: eGFR has not been validated [...] GFR, >60 >=60 mL/min/1.7 3 sq meter 10/30/2018 8:24 AM T [facility] ANION GAP 9 8 - 16 mmol/L 10/30/2018 8:24 AM T [employer] [facility] Blood Venipuncture / Unknown 10/30/2018 7:37 AM CDT 10/30/2018 7:46 AM CDT Kim Larsen DO CHEMISTR Y ORDERABLES [employer] [facility] [id number] [address] [place] [address] * PROTIME-INR (10/30/2018 6:05 AM CDT) PROTIME 12.7 12.7 - 15.1 Seconds 10/30/2018 6:24 AM CDT [facility] [employer] [facility] INR 1.0 0.9 - 1.1 10/30/2018 6:24 AM CDT [facility] [employer] [facility] Blood Venipuncture / Unknown 10/30/2018 6:05 AM CDT 10/30/2018 6:11 AM CDT Narrative [facility] [employer] [facility] - 10/30/2018 6:24 AM CDT INR Therapeutic Range: Adult: ?? 2.0 - 3.0 for pulmonary embolism or prophylaxis against venous ?thrombosis or systemic embolization. 2.0 - 3.0 for patients with tissue heart valves. 2.5 - 3.5 for patients with mechanical heart valves or post NV. Pediatric ??(12 years and under): 1.5 - 3.0 Although the target range in children is not well established, ?INR values of 1.5 - 3.0 are recommended for most patients. ?Higher values have been used in children with prosthetic ?cardiac valves and hereditary clotting disorders. [place] (<3 days) therapeutic ranges have not been established. Alize Arteaga MD HEMATOLOGY YONI SERRANO [facility]# [id number] [address] [place] [address] * (ABNORMAL) TRIGLYCERIDE (10/30/2018 6:05 AM CDT) TRIGLYCERIDE 2,155(H) <150 mg/dL 10/30/2018 6:57 AM CDT [facility] [employer] [facility] Blood Venipuncture / Unknown 10/30/2018 6:05 AM CDT 10/30/2018 6:[address] [facility] - [facility] - 10/30/2018 6:57 AM CDT TRIGLYCERIDES ? mg/dL Normal ?< 150 Borderline High ?150 - 199 High ? 200 - 499 Very High ? >= 500 Based on AHA/NCEP Guidelines. Alize Arteaga MD CHEMISTRY ORDER [facility]VALDO [facility] [employer] SERVICES [facility]# [id number] [address] [facility] [place] [address] * (ABNORMAL) CBC WITHOUT DIFFERENTIAL (10/30/2018 6:05 AM CDT) Pathologist [facility] WBC 9.2 4.0 - 9.8 K/uL 10/30/2018 6:24 AM CDT [employer] [facility] RBC 4.15 3.90 - 4.90 M/uL 10/30/2018 6:24 AM CDT [employer] LABORATORY SERVICES [facility] HEMOGLOBIN 13.0 11.8 - 14.8 g/dL 10/30/2018 6:24 AM CDT [employer] [facility] HEMATOCRIT 36.7 35.5 - 44.0 % 10/30/2018 6:24 AM CDT [employer] [facility] MCV 88.4 82.0 - 99.0 fL 10/30/2018 6:24 AM CDT [employer] SERVICES - [facility] MCH 31.3 27.2 - 32.6 pg 10/30/2018 6:24 AM CDT [facility] - [facility] MCHC 35.4 31.5 - 35.5 g/dL 10/30/2018 6:24 AM CDT [facility] PLATELETS 227 140 - 350 K/uL 10/30/2018 6:24 AM CDT [employer] SERVICES - [facility] MPV 9.6 9.3 - 12.4 fL 10/30/2018 6:24 AM CDT [facility] LABORATORY SERVICES - [facility] RDW 15.9(H) 11.5 - 14.5 % 10/30/2018 6:24 AM CDT [facility] LABORATORY SERVICES - [facility] RDW-STDEV 51.5(H) 37.1 - 48.7 fL 10/30/2018 6:24 AM CDT [facility] LABORATORY SERVICES - [facility] Blood Venipuncture / Unknown 10/30/2018 6:05 AM CDT 10/30/2018 6:11 AM CDT Alize Arteaga MD HEMATOLOGY YONI SERRANO [facility] [employer] [facility] CLIA# [id number] [address] [facility] [place] [place] [place] [address] * (ABNORMAL) POC GLUCOSE (10/29/2018 10:25 PM CDT) GLUCOSE POC 155(H) 74 - 99 mg/dL 10/29/2018 10:25 PM CDT [facility]ORY [facility] COMMENT, GLU POC Notified RN/MD 10/29/2018 10:25 PM CDT [facility] SOCIOLOGY PROFESSOR NAME POC JESSICA REGALADO 10/29/2018 10:25 PM CDT [facility] Whole blood specimen (specimen) 10/29/2018 10:25 PM CDT 10/29/2018 10:42 PM CDT Kim Larsen DO POINT OF CARE TESTING [facility] [employer] [facility] CLIA# [id number] [address] [place] [address] * (ABNORMAL) POC GLUCOSE (10/29/2018 7:40 PM CDT) GLUCOSE POC 155(H) 74 - 99 mg/dL 10/29/2018 7:40 PM CDT [facility] LABORATORY SERVICES [facility] COMMENT, GLU POC Notified RN/MD 10/29/2018 7:40 PM CDT [facility] LABORATORY SERVICES - [facility] SOCIOLOGY PROFESSOR NAME POC ELIGIO MARTIN 10/29/2018 7:40 PM CDT [facility] LABORATORY SERVICES - [facility] Whole blood specimen (specimen) 10/29/2018 7:40 PM CDT 10/29/2018 7:55 PM CDT Kim Larsen DO POINT OF CARE TESTING [facility] [employer] [facility] CLIA# [id number] [address] [facility] [place] [place] [address] * (ABNORMAL) BASIC METABOLIC PANEL (10/29/2018 6:15 PM CDT) SODIUM 131(L) 136 - 145 mmol/L 10/29/2018 8:21 PM CDT [facility] LABORATORY SERVICES [facility] POTASSIUM 4.7 3.5 - 5.0 mmol/L 10/29/2018 8:21 PM T [facility] LAB[facility]ATORY SERVICES [facility] Comment:Moderate hemolysis p resent. Can cause significant falsely elevated result. Redraw if indicated. CHLORIDE 107 98 - 107 mmol/L 10/29/2018 8:21 PM T [facility] LABORATORY SERVICES [facility] CO2 11(L) 22 - 29 mmol/L 10/29/2018 8:21 PM T [facility] LABORATORY SERVICES [facility] CALCIUM 6.9(L) 8.6 - 10.2 mg/dL 10/29/2018 8:21 PM CDT [facility] LABORATORY SERVICES [facility] BUN 5(L) 6 - 20 mg/dL 10/29/2018 8:21 PM CDT [facility] LABORATORY SERVICES [facility] CREATININE 0.39(L) 0.51 - 0.95 mg/dL 10/29/2018 8:21 PM T [facility] LABORATORY SERVICES - [facility] GLUCOSE 150(H) 74 - 99 mg/dL 10/29/2018 8:21 PM CDT [facility] LABORATORY SERVICES [facility] GFR >60 >=60 mL/min/1.7 3 sq meter 10/29/2018 8:21 PM CDT [facility] - [facility] Comment: eGFR has not been [...] GFR, >60 >=60 mL/min/1.7 3 sq meter 10/29/2018 8:21 PM CDT [employer] LABORATORY SERVICES - [facility] ANION GAP 13 8 - 16 mmol/L 10/29/2018 8:21 PM [facility] [employer] LABORATORY SERVICES [facility] Blood Venipuncture / Unknown 10/29/2018 6:15 PM CDT 10/29/2018 6:27 PM CDT Kim Larsen DO CHEMISTR Y ORDERABLES [facility] LABORATORY SERVICES [facility]# [id number] [address] [facility] [place] [address] * (ABNORMAL) BLOOD GAS ARTERIAL (10/29/2018 5:02 PM CDT) PH ARTERIAL 7.28(L) 7.35 - 7.45 10/29/2018 5:09 PM T [employer] LAB[facility]ATORY SERVICES [facility] PCO2 ARTERIAL 42 35 - 48 mm Hg 10/29/2018 5:09 PM T [employer] [facility]ORY [facility] PO2 ARTERIAL 97 83 - 108 mm Hg 10/29/2018 5:09 PM T [employer] [facility]ATORY SERVICES [facility] HCO3 ARTERIAL 20(L) 22 - 26 mmol/L 10/29/2018 5:09 PM T [facility] LABORATORY SERVICES [facility] BASE EXCESS ABG -6.4(L) -2.0 - 3.0 mmol/L 10/29/2018 5:09 PM T [employer] LABORATORY SERVICES [facility] O2 SAT EST ARTERIAL 97 95 - 99 % 10/29/2018 5:09 PM CDT [facility] LABORATORY SERVICES [facility] P/F RATIO ARTERIAL 346 10/29/2018 5:09 PM CDT [facility] LABORATORY [facility] - [facility] OXYGEN MODE 10/29/2018 5:09 PM CDT [facility] LABORATORY SERVICES [facility] Comment:Not given FIO2 28.0 21.0 - 100.0 % 10/29/2018 5:09 PM CDT [facility] LABORATORY SERVICES - [facility] Blood, arterial Arterial / Unknown 2018 5:02 PM CDT 10/29/2018 5:06 PM CDT Kim TIPTON LAURAJANES Performing Organization Address City/[facility]/ZIP Co de Phone Number [facility] CLIA# [id number] [address] [place] [address] * (ABNORMAL) POC GLUCOSE (10/29/2018 4:49 PM CDT) GLUCOSE POC 151(H) 74 - 99 mg/dL 10/29/2018 4:49 PM CDT [facility] LABORATORY [facility] SOCIOLOGY PROFESSOR NAME KATIA COSME 10/29/2018 4:49 PM CDT [facility] LABORATORY SERVICES [facility] Whole blood specimen (specimen) 10/29/2018 4:49 PM CDT 10/29/2018 5:20 PM CDT Kim Larsen DO POINT OF CARE TESTING [facility] [employer] [facility] CLIA# [id number] [address] [place] [address] * (ABNORMAL) POC GLUCOSE (10/29/2018 2:28 PM CDT) GLUCOSE POC 139(H) 74 - 99 mg/dL 10/29/2018 2:28 PM CDT [facility] LABORATORY [facility] SOCIOLOGY PROFESSOR NAME KATIA COSME 10/29/2018 2:28 PM CDT [facility] LABORATORY [facility] Whole blood specimen (specimen) 10/29/2018 2:28 PM CDT 10/29/2018 2:49 PM CDT Kim Larsen DO POINT OF CARE TESTING Performing Organization Address [facility]/ZIP Co de Phone Number [facility] [employer] [facility] CLIA# [id number] [address] [place] [address] * (ABNORMAL) POC GLUCOSE (10/29/2018 1:23 PM CDT) [facility] GLUCOSE POC 126(H) 74 - 99 mg/dL 10/29/2018 1:23 PM CDT [facility] LABORATORY [facility] SOCIOLOGY PROFESSOR NAME POC LYNNETTE DELACRUZ 10/29/2018 1:23 PM CDT [facility] LABORATORY [facility] Whole blood specimen (specimen) 10/29/2018 1:23 PM CDT 10/29/2018 1:35 PM CDT Kim Larsen DO POINT OF CARE TESTING Performing Organization Address [facility]/ZIP Co de Phone Number [facility] CLIA# [id number] [address] [place] [address] * IR VENOUS NECK (10/29/2018 12:15 PM CDT) Anatomical Region Laterality Modality Neck X-Ray Angiograph y 10/29/2018 12:1 6 PM CDT Addenda Addendum by Laverne Willoughby MD on 11/12/2018 8:19 AM CDT FLUOROSCOPY TIME: 1.4 minutes Impressions 10/31/2018 8:19 AM CDT IMPRESSION: Ultrasound and fluoroscopic-guided placement of 2 separate subcutaneous power flow venous accesses as described above. DICTATION LOCATION: Location 1 - [facility] Narrative 10/31/2018 8:19 AM CDT ULTRASOUND AND FLUOROSCOPIC GUIDED PLACEMENT OF A 2 SEPARATE TUNNELED POWER FLOW CENTRAL ACCESSES. HISTORY: 42-YEAR-OLD FEMALE WITH HYPERTRIGLYCERIDEMIA PRESENTING FOR THE PLACEMENT OF 2 SEPARATE CENTRAL VENOUS ACCESSES FOR THE PURPOSE OF PHERESIS. SURGEON: Laverne Willoughby M.D. ANESTHESIA: Anesthesia was provided by the Department of Anesthesia Services. CONSENT: Written informed consent was obtained from the patient after explaining the procedure, benefits and risks, included but not limited to bleeding and/or infection. The patient expressed the wish to proceed with the procedure. MEDICATIONS:Intravenous antibiotics were given pre-operatively FLUOROSCOPY TIME: Dose 20mGy/[id number]. PROCEDURE: The right ??upper chest and neck were prepped and draped in a sterile fashion. Under direct ultrasound guidance the ??right ??internal jugular vein was punctured and a guidewire was advanced centrally. A 4 Green[place]ic micropuncture dilator was advanced over a guidewire. More laterally, and under ultrasound guidance, the right internal jugular vein was punctured and a guidewire was advanced centrally. A 4 [place] micropuncture dilator was then advanced over the guidewire. This were established to separate venous access is into the superior vena cava from the right internal jugular vein. Using 1% lidocaine with epinephrine the subcutaneous tissues at and below the clavicle were infiltrated. A large dermatotomy was then performed just inferior to the clavicle. Using blunt dissection a subcutaneous pocket was formed. 2 separate 9.6 Green[place]ic catheters were then tunneled subcutaneously from the dermatotomy to the venotomy sites. Each catheter was advanced separately into the superior vena cava. The catheter tips were positioned within the superior aspect of the right atrium. On the proximal and, the catheters were trimmed and that catheter was connected to its reservoir. The reservoir fluid and secured in the subcutaneous pocket using 2-0 Prolene suture. The reservoirs were then accessed and tested and appear to function properly. The subcutaneous pocket and venotomy were approximated using 4-0 V-Lock sutures and skin glue. The patient tolerated the procedure well. Procedure Note Laverne Willoughby MD - 10/31/2018 ULTRASOUND AND FLUOROSCOPIC GUIDED PLACEMENT OF A 2 SEPARATE TUNNELED POWER FLOW CENTRAL ACCESSES. HISTORY: 42-YEAR-OLD FEMALE WITH HYPERTRIGLYCERIDEMIA PRESENTING FOR THE PLACEMENT OF 2 SEPARATE CENTRAL VENOUS ACCESSES FOR THE PURPOSE OF PHERESIS. SURGEON: Laverne Willoughby M.D. ANESTHESIA: Anesthesia was provided by the Department of Anesthesia Services. CONSENT: Written informed consent was obtained from the patient after explaining the procedure, benefits and risks, included but not limited to bleeding and/or infection. The patient expressed the wish to proceed with the procedure. MEDICATIONS:Intravenous antibiotics were given pre-operatively FLUOROSCOPY TIME: Dose 20mGy/[id number]. PROCEDURE: The right upper chest and neck were prepped and draped in a sterile fashion. Under direct ultrasound guidance the right internal jugular vein was punctured and a guidewire was advanced centrally. A 4 [place]ic micropuncture dilator was advanced over a guidewire. More laterally, and under ultrasound guidance, the right internal jugular vein was punctured and a guidewire was advanced centrally. A 4 [place]ic micropuncture dilator was then advanced over the guidewire. This were established to separate venous access is into the superior vena cava from the right internal jugular vein. Using 1% lidocaine with epinephrine the subcutaneous tissues at and below the clavicle were infiltrated. A large dermatotomy was then performed just inferior to the clavicle. Using blunt dissection a subcutaneous pocket was formed. 2 separate 9.6 Green[place]ic catheters were then tunneled subcutaneously from the dermatotomy to the venotomy sites. Each catheter was advanced separately into the superior vena cava. The catheter tips were positioned within the superior aspect of the right atrium. On the proximal and, the catheters were trimmed and that catheter was connected to its reservoir. The reservoir fluid and secured in the subcutaneous pocket using 2-0 Prolene suture. The reservoirs were then accessed and tested and appear to function properly. The subcutaneous pocket and venotomy were approximated using 4-0 V-Lock sutures and skin glue. The patient tolerated the procedure well. IMPRESSION: Ultrasound and fluoroscopic-guided placement of 2 separate subcutaneous power flow venous accesses as described above. DICTATION LOCATION: Location 1 - [facility] Laverne Fartun CARNEY IR ORDERABLES * (ABNORMAL) POC GLUCOSE (10/29/2018 12:04 PM T) GLUCOSE POC 165(H) 74 - 99 mg/dL 10/29/2018 12:04 PM CDT [facility] SOCIOLOGY PROFESSOR NAME POC KATIA LIMA 10/29/2018 12:04 PM [facility] Whole blood specimen (specimen) 10/29/2018 12:04 PM CDT 10/29/2018 12:41 PM CDT Kim Larsen DO POINT OF CARE TESTING [facility] LABORATORY [facility] CLIA# [id number] [address] [place] [address] * (ABNORMAL) POC GLUCOSE (10/29/2018 10:56 AM CDT) GLUCOSE POC 150(H) 74 - 99 mg/dL 10/29/2018 10:56 AM CDT [facility] LABORATORY SERVICES [facility] SOCIOLOGY PROFESSOR NAME KATIA COSME 10/29/2018 10:56 AM CDT [facility] Whole blood specimen (specimen) 10/29/2018 10:56 AM CDT 10/29/2018 12:41 PM CDT Kim Larsen DO POINT OF CARE TESTING Performing Organization Address [facility]/ZIP Co de Phone Number [facility] [employer] [facility] CLIA# [id number] [address] [place] [address] * (ABNORMAL) POC GLUCOSE (10/29/2018 10:03 AM CDT) GLUCOSE POC 119(H) 74 - 99 mg/dL 10/29/2018 10:03 AM CDT [facility] LABORATORY SERVICES [facility] SOCIOLOGY PROFESSOR NAME KATIA COSME 10/29/2018 10:03 AM CDT [facility] Whole blood specimen (specimen) 10/29/2018 10:03 AM CDT 10/29/2018 10:17 AM CDT Kim Larsen DO POINT OF CARE TESTING [facility] LABORATORY [facility] CLIA# [id number] [address] [place] [address] * (ABNORMAL) POC GLUCOSE (10/29/2018 9:05 AM CDT) GLUCOSE POC 133(H) 74 - 99 mg/dL 10/29/2018 9:05 AM CDT [facility] LABORATORY [facility] SOCIOLOGY PROFESSOR NAME LYNNETTE GARCIA 10/29/2018 9:05 AM CDT [facility] LABORATORY SERVICES [facility] Whole blood specimen (specimen) 10/29/2018 9:05 AM CDT 10/29/2018 9:31 AM CDT Kim Larsen DO POINT OF CARE TESTING Performing Organization Address City/[facility]/ZIP Co de Phone Number [facility] [employer] [facility] CLIA# [id number] [address] [place] [address] * (ABNORMAL) POC GLUCOSE (10/29/2018 8:02 AM CDT) GLUCOSE POC 124(H) 74 - 99 mg/dL 10/29/2018 8:02 AM CDT [facility] LABORATORY [facility] SOCIOLOGY PROFESSOR NAME LYNNETTE GARCIA 10/29/2018 8:02 AM CDT [facility] LAB[facility]ATORY SERVICES [facility] Whole blood specimen (specimen) 10/29/2018 8:02 AM CDT 10/29/2018 8:29 AM CDT Kim Larsen DO POINT OF CARE TESTING [facility] [employer] [facility] CLIA# [id number] [address] [place] [address] * (ABNORMAL) POC GLUCOSE (10/29/2018 6:56 AM CDT) GLUCOSE POC 102(H) 74 - 99 mg/dL 10/29/2018 6:56 AM CDT [facility] LABORATORY SERVICES [facility] COMMENT, GLU POC Notified RN/MD 10/29/2018 6:56 AM CDT [facility] LABORATORY SERVICES [facility] SOCIOLOGY PROFESSOR NAME JESSICA JACKSON 10/29/2018 6:56 AM CDT [facility] LABORATORY SERVICES [facility] Whole blood specimen (specimen) 10/29/2018 6:56 AM CDT 10/29/2018 7:10 AM CDT Angie Louis MD POINT OF CARE TESTIN G Performing Organization Address [facility] de Phone Number [facility] CLNY# [id number] [address] [place] [address] * POC GLUCOSE (10/29/2018 5:55 AM CDT) GLUCOSE POC 96 74 - 99 mg/dL 10/29/2018 5:55 AM CDT [facility] LABORATORY [facility] COMMENT, GLU POC Notified RN/MD 10/29/2018 5:55 AM CDT [facility] [employer] [facility] SOCIOLOGY PROFESSOR NAME POC JESSICA REGALADO 10/29/2018 5:55 AM CDT [facility] [employer] [facility] Whole blood specimen (specimen) 10/29/2018 5:55 AM CDT 10/29/2018 6:11 AM CDT Angie Louis MD POINT OF CARE TESTIN G Performing Organization Address [facility] de Phone Number [facility] [employer] [facility]# [id number] [facility] [place] [address] * (ABNORMAL) TRIGLYCERIDE (10/29/2018 5:15 AM CDT) TRIGLYCERIDE >4,425(H) <150 mg/dL 10/29/2018 6:33 AM CDT [facility] [employer] [facility] Blood Venipuncture / Unknown 10/29/2018 5:15 AM CDT 10/29/2018 5:30 AM CDT Narrative [facility] LABORATORY [facility] - 10/29/2018 6:33 AM CDT TRIGLYCERIDES ? mg/dL Normal ?< 150 Borderline High ?150 - 199 High ? 200 - 499 Very High ? >= 500 Based on AHA/NCEP Guidelines. Angie Louis MD CHEMISTRY ORDERABLES [employer] LABORATORY SERVICES - [facility] CLIA# [id number] [address] [facility] [place] [address] * (ABNORMAL) BASIC METABOLIC PANEL (10/29/2018 5:15 AM CDT) SODIUM 134(L) 136 - 145 mmol/L 10/29/2018 6:54 AM CDT [facility]ORATORY SERVICES - [facility] POTASSIUM 3.6 3.5 - 5.0 mmol/L 10/29/2018 6:54 AM [facility] [employer] SERVICES - [facility] CHLORIDE 100 98 - 107 mmol/L 10/29/2018 6:54 AM T [employer] SERVICES - . [facility] CO2 23 22 - 29 mmol/L 10/29/2018 6:54 AM T [facility] LABORATORY SERVICES - [facility] CALCIUM 8.1(L) 8.6 - 10.2 mg/dL 10/29/2018 6:54 AM T [facility]ATORY SERVICES - [facility] Comment:Significant change f rom prior result, correlate clinically and redraw if necessary. BUN 7 6 - 20 mg/dL 10/29/2018 6:54 AM T [employer] SERVICES [facility] CREATININE 0.55 0.51 - 0.95 mg/dL 10/29/2018 6:54 AM CDT [facility] LABORATORY SERVICES - . [facility] GLUCOSE 84 74 - 99 mg/dL 10/29/2018 6:54 AM T [facility]ATORY SERVICES - [facility] GFR >60 >=60 mL/min/1.7 3 sq meter 10/29/2018 6:54 AM [employer] [facility]ORATORY SERVICES - [facility] Comment: eGFR has not been [...] GFR, >60 >=60 mL/min/1.7 3 sq meter 10/29/2018 6:54 AM CDT [facility] LABORATORY SERVICES [facility] ANION GAP 11 8 - 16 mmol/L 10/29/2018 6:54 AM T [facility] LABORATORY [facility] Blood Venipuncture / Unknown 10/29/2018 5:15 AM CDT 10/29/2018 5:30 AM CDT Narrative [facility] LABORATORY SERVICES [facility] - 10/29/2018 6:54 AM CDT Grossly lipemic. Cleared of chylomicrons. Angie Louis MD CHEMISTRY ORDERABLES [facility] [employer] [id number] [address] [place] [address] * POC GLUCOSE (10/29/2018 4:59 AM CDT) [facility] GLUCOSE POC 77 74 - 99 mg/dL 10/29/2018 4:59 AM CDT [facility] LABORATORY SERVICES [facility] COMMENT, GLU POC Notified RN/MD 10/29/2018 4:59 AM CDT [facility] LABORATORY SERVICES [facility] SOCIOLOGY PROFESSOR NAME POC BRANDON REGALADON 10/29/2018 4:59 AM CDT [facility] LABORATORY [facility] Whole blood specimen (specimen) 10/29/2018 4:59 AM CDT 10/29/2018 5:28 AM CDT Angie Louis MD POINT OF CARE TESTIN G Performing Organization Address City/[facility]/ZIP Co de Phone Number [facility] [employer] [facility] CLIA# [id number] [address] [place] [address] * POC GLUCOSE (10/29/2018 3:50 AM CDT) GLUCOSE POC 81 74 - 99 mg/dL 10/29/2018 3:50 AM CDT [facility] LABORATORY SERVICES - [facility] SOCIOLOGY PROFESSOR NAME JESSICA JACKSON 10/29/2018 3:50 AM CDT [facility] Whole blood specimen (specimen) 10/29/2018 3:50 AM CDT 10/29/2018 4:01 AM CDT Angie Louis MD POINT OF CARE TESTIN G [facility] LABORATORY [facility] CLIA# [id number] [address] [place] [address] * POC GLUCOSE (10/29/2018 2:54 AM CDT) GLUCOSE POC 78 74 - 99 mg/dL 10/29/2018 2:54 AM CDT [facility] LABORATORY SERVICES - [facility] COMMENT, GLU POC Notified RN/MD 10/29/2018 2:54 AM CDT [facility]ORATORY SERVICES - [facility] SOCIOLOGY PROFESSOR NAME JESSICA JACKSON 10/29/2018 2:54 AM CDT [facility] Whole blood specimen (specimen) 10/29/2018 2:54 AM CDT 10/29/2018 3:18 AM CDT Angie Louis MD POINT OF CARE TESTIN G [facility] LABORATORY [facility] CLIA# [id number] [address] [place] [address] * POC GLUCOSE (10/29/2018 1:52 AM CDT) GLUCOSE POC 92 74 - 99 mg/dL 10/29/2018 1:52 AM CDT [facility]ORATORY SERVICES - [facility] SOCIOLOGY PROFESSOR NAME JESSICA JACKSON 10/29/2018 1:52 AM CDT [facility] Whole blood specimen (specimen) 10/29/2018 1:52 AM CDT 10/29/2018 2:13 AM CDT Angie Louis MD POINT OF CARE TESTIN G Performing Organization Address [facility] Co de Phone Number [facility] LABORATORY [facility] CLIA# [id number] [address] [place] [address] * (ABNORMAL) POC GLUCOSE (10/29/2018 12:43 AM CDT) GLUCOSE POC 116(H) 74 - 99 mg/dL 10/29/2018 12:43 AM CDT [facility]AT[facility] COMMENT, GLU POC Notified RN/MD 10/29/2018 12:43 AM CDT [facility]ORATORY SERVICES [facility] SOCIOLOGY PROFESSOR NAME JESSICA JACKSON 10/29/2018 12:43 AM CDT [facility] Whole blood specimen (specimen) 10/29/2018 12:43 AM CDT 10/29/2018 12:59 AM CDT Angie Louis MD POINT OF CARE TESTIN G Performing Organization Address [facility] de Phone Number [facility] [employer] [facility]# [id number] [address] [place] [address] * (ABNORMAL) POC GLUCOSE (10/29/2018 12:12 AM CDT) GLUCOSE POC 130(H) 74 - 99 mg/dL 10/29/2018 12:12 AM CDT [facility]AT[facility] COMMENT, GLU POC Notified RN/MD 10/29/2018 12:12 AM CDT [facility]ORATORY SERVICES [facility] SOCIOLOGY PROFESSOR NAME JESSICA JACKSON 10/29/2018 12:12 AM CDT [facility] Whole blood specimen (specimen) 10/29/2018 12:12 AM CDT 10/29/2018 12:26 AM CDT Angie Louis MD POINT OF CARE TESTIN G Performing Organization Address [facility] Co de Phone Number [facility]# [id number] [address] [place] [address] * (ABNORMAL) POC GLUCOSE (10/28/2018 11:42 PM CDT) GLUCOSE POC 116(H) 74 - 99 mg/dL 10/28/2018 11:42 PM CDT [facility] LABORATORY SERVICES [facility] COMMENT, GLU POC Notified RN/MD 10/28/2018 11:42 PM CDT [facility] LABORATORY SERVICES [facility] SOCIOLOGY PROFESSOR NAME ELIGIO JOHNSON 10/28/2018 11:42 PM CDT [facility] LABORATORY SERVICES [facility] Whole blood specimen (specimen) 10/28/2018 11:42 PM CDT 10/28/2018 11:54 PM CDT Angie Louis MD POINT OF CARE TESTJERONIMO Serrano Performing Organization Address [facility]/ZIP Co de Phone Number [facility] [employer] [facility]# [id number] [address] [place] [address] * (ABNORMAL) POC GLUCOSE (10/28/2018 11:06 PM CDT) GLUCOSE POC 108(H) 74 - 99 mg/dL 10/28/2018 11:06 PM CDT [facility] LABORATORY SERVICES [facility] COMMENT, GLU POC Notified RN/MD 10/28/2018 11:06 PM CDT [facility] LABORATORY SERVICES [facility] SOCIOLOGY PROFESSOR NAME ELIGIO JOHNSON 10/28/2018 11:06 PM CDT [facility] LABORATORY SERVICES [facility] Whole blood specimen (specimen) 10/28/2018 11:06 PM CDT 10/28/2018 11:20 PM CDT Angie Louis MD POINT OF CARE TESTIN G Performing Organization Address [facility]/ZIP Co de Phone Number [facility] [employer] [facility]# [id number] [address] [place] [address] * (ABNORMAL) POC GLUCOSE (10/28/2018 9:58 PM CDT) GLUCOSE POC 145(H) 74 - 99 mg/dL 10/28/2018 9:58 PM CDT [facility] COMMENT, GLU POC Notified RN/ 10/28/2018 9:58 PM CDT [facility]ORATORY SERVICES [facility] SOCIOLOGY PROFESSOR NAME POC JESSICA REGALADO 10/28/2018 9:58 PM CDT [facility] Whole blood specimen (specimen) 10/28/2018 9:58 PM CDT 10/28/2018 10:19 PM CDT Angie Louis MD POINT OF CARE TESTJERONIMO G Performing Organization Address [facility]/ZIP Co de Phone Number [facility] [employer] [facility]# [id number] [address] [place] [address] * (ABNORMAL) POC GLUCOSE (10/28/2018 8:56 PM CDT) GLUCOSE POC 184(H) 74 - 99 mg/dL 10/28/2018 8:56 PM CDT [facility] COMMENT, GLU POC Notified RN/MD 10/28/2018 8:56 PM CDT [facility]ORATORY SERVICES [facility] SOCIOLOGY PROFESSOR NAME POC JESSICA REGALADO 10/28/2018 8:56 PM CDT [facility] Whole blood specimen (specimen) 10/28/2018 8:56 PM CDT 10/28/2018 9:30 PM CDT Angie Louis MD POINT OF CARE TESTIN G [facility] LAB[facility]AT[facility]# [id number] [address] [place] [address] * (ABNORMAL) POC GLUCOSE (10/28/2018 7:55 PM CDT) GLUCOSE POC 228(H) 74 - 99 mg/dL 10/28/2018 7:55 PM CDT [facility] LABORATORY SERVICES [facility] COMMENT, GLU POC Notified RN/ 10/28/2018 7:55 PM CDT [facility] LABORATORY SERVICES [facility] SOCIOLOGY PROFESSOR NAME POC JESSICA REGALADO 10/28/2018 7:55 PM CDT [facility] LABORATORY SERVICES [facility] Whole blood specimen (specimen) 10/28/2018 7:55 PM CDT 10/28/2018 8:20 PM CDT Angie Louis MD POINT OF CARE TESTIN G Performing Organization Address [facility] Co de Phone Number [facility] [employer] [facility]# [id number] [address] [place] [address] * (ABNORMAL) POC GLUCOSE (10/28/2018 5:20 PM CDT) [facility] GLUCOSE POC 305(H) 74 - 99 mg/dL 10/28/2018 5:20 PM CDT [facility] LABORATORY [facility] COMMENT, GLU POC Repeated Glucose 10/28/2018 5:20 PM CDT [facility] LABORATORY SERVICES [facility] COMMENT 2, GLU POC Notified RN/ 10/28/2018 5:20 PM CDT [facility] LABORATORY SERVICES [facility] SOCIOLOGY PROFESSOR NAME POC HANS BEE 10/28/2018 5:20 PM CDT [facility] LABORATORY SERVICES [facility] Whole blood specimen (specimen) 10/28/2018 5:20 PM CDT 10/28/2018 5:32 PM CDT Phoenix Livingston MD POINT OF CARE TESTIN G Performing Organization Address City/[facility]/ZIP Co de Phone Number [facility]# [id number] [address] [place] [address] * EKG 12-LEAD (10/28/2018 5:14 PM CDT) 10/28/2018 5:14 PM CDT Narrative INTERFACE SYSTEM - 10/28/2018 6:45 PM CDT ? Stationary ECG Study ? [facility] ? Test Date: ?10/28/2018 5:14 PM Pat Name: ? CASANDRA DOSS ?Department: ?? 38 ?Room: ? 4228 Gender: ? F ?Jacker: ?? conchita : ?1975 ? Requested By: PHOENIX LIVINGSTON A Order Number: [id number] ?Reading MD: ?? Eligio Wyman ? Measurements Intervals ?[place] ? Rate: ? 89 ? P: ?49 WA: ? 164 ?QRS: ?50 QRSD: ? 88 ? T: ?-16 QT: ? 365 ? QTc: ?445 ? Interpretive Statements ? Sinus rhythm Borderline T abnormalities, diffuse leads Electronically Signed On 10-28-2018 18:45:08 CDT by Eligio Wyman Procedure Note Eligio Wyman MD - 06/14/2021 Stationary ECG [facility] Test Date: 10/28/2018 5:14 PM Pat Name: CASANDRA DOSS Department: 38 Room: 4228 Gender: F Jacker: conchita : 1975 Requested By: PHOENIX Chavez Order Number: [id number] [place] MD: Eligio Wyman Measurements Intervals [place] Rate: 89 P: 49 WA: 164 QRS: 50 QRSD: 88 T: -16 QT: 365 QTc: 445 Interpretive Statements Sinus rhythm Borderline T abnormalities, diffuse leads Electronically Signed On 10-28-2018 18:45:08 CDT by Eligio Wyman Phoenix Livingston MD ECG ORDERABLES INTERFACE SYSTEM Refer to clinic/hospital department * (ABNORMAL) URINALYSIS WITH REFLEX MICROSCOPIC (10/28/2018 4:00 PM CDT) COLOR UA Yellow Pale to Dark Yellow 10/28/2018 4:39 PM T [facility] LABORATORY SERVICES - [facility] CLARITY UA Slightly Cloudy(A) Clear 10/28/2018 4:39 PM T [facility] SERVICES - [facility] SPECIFIC GRAVITY UA 1.030 1.003 - 1.035 10/28/2018 4:39 PM [facility] - [facility] PH UA 6.0 5.0 - 8.0 10/28/2018 4:39 PM T [facility] - [facility] LEUKOCYTE ESTERASE UA Negative Negative 10/28/2018 4:39 PM T [facility] - [facility] NITRITE UA Negative Negative 10/28/2018 4:39 PM T [facility] - [facility] PROTEIN UA Negative Negative 10/28/2018 4:39 PM T [facility] - [facility] GLUCOSE UA 3+(A) Negative 10/28/2018 4:39 PM [facility] - [facility] KETONES UA Trace(A) Negative 10/28/2018 4:39 PM CDT [facility] - [facility] UROBILINOGEN UA Normal <2.0 mg/dL 9 4:39 PM T [facility] - [facility] BILIRUBIN UA Negative Negative 10/28/2018 4:39 PM T [facility] - [facility] BLOOD UA Negative Negative 10/28/2018 4:39 PM T [facility] - [facility] WBC UA 3-5(A) 0 - 2 /hpf 10/28/2018 4:39 PM CDT [facility] - [facility] RBC UA 0-2 0 - 2 /hpf 10/28/2018 4:39 PM T [facility] - [facility] BACTERIA UA 1+(A) Negative /hpf 10/28/2018 4:39 PM CDT [facility] - [facility] EPITHELIAL CELLS, URINE 11-25(A) 0 - 5 /hpf 10/28/2018 4:39 PM [facility] - [facility] Urine URINE SPECIMEN OBTAINED BY CLEAN CATCH PROCEDURE / Unknown Collection / Unknown 10/28/2018 4:00 PM CDT 10/28/2018 4:13 PM CDT Phoenix Livingston MD URINE ORDERABLES [facility] LABORATORY SERVICES - [facility] CLIA# [id number] [address] [place] [address] * MANUAL DIFFERENTIAL (10/28/2018 3:56 PM CDT) SEGMENTED NEUTROPHILS 65 % 10/28/2018 5:48 PM CDT [employer] LABORATORY SERVICES - [facility] LYMPHOCYTES RELATIVE 26 % 10/28/2018 5:48 PM CDT [facility]ATORY SERVICES - [facility] ATYPICAL LYMPHOCYTES RELATIVE 3 0 - 5 % 10/28/2018 5:48 PM CDT [facility] - [facility] MONOCYTES RELATIVE 5 % 10/28/2018 5:48 PM CDT [employer] LABORATORY SERVICES - [facility] EOSINOPHILS RELATIVE 1 % 10/28/2018 5:48 PM CDT [employer] LABORATORY SERVICES - [facility] NEUTROPHILS ABSOLUTE COUNT 6.87 1.90 - 7.00 K/uL 10/28/2018 5:48 PM CDT [employer] LABORATORY SERVICES - [facility] LYMPHOCYTES ABSOLUTE 2.77 0.70 - 4.50 K/uL 10/28/2018 5:48 PM CDT [employer] LABORATORY SERVICES - [facility] MONOCYTES ABSOLUTE 0.48 0.10 - 1.30 K/uL 10/28/2018 5:48 PM CDT [employer] LABORATORY SERVICES - [facility] EOSINOPHILS ABSOLUTE 0.10 0.00 - 0.70 K/uL 10/28/2018 5:48 PM CDT [employer] LABORATORY SERVICES - [facility] TOTAL CELLS COUNTED IN DIFF 110 10/28/2018 5:48 PM CDT [employer] LABORATORY SERVICES - [facility] RBC MORPHOLOGY abnormal 10/28/2018 5:48 PM CDT [facility]AT[facility] SERVICES - [facility] PLATELET EST. Consistent w Count 10/28/2018 5:48 PM CDT [facility]AT[facility] - [facility] ANISOCYTOSIS 1+ /hpf 10/28/2018 5:48 PM CDT [facility] - [facility] MICROCYTES 1+ /hpf 10/28/2018 5:48 PM CDT [facility] Blood Venipuncture / Unknown 10/28/2018 3:56 PM CDT 10/28/2018 4:02 PM CDT Phoenix Livingston MD HEMATOLOGY ORDERABLE S COM [facility] LABORATORY SERVICES [facility] CLIA# [id number] [address] [place] [address] * LIPASE (10/28/2018 3:56 PM CDT) Pathologist [facility] LIPASE 51 13 - 60 U/L 10/28/2018 6:09 PM CDT [facility] LABORATORY SERVICES [facility] Blood Venipuncture / Unknown 10/28/2018 3:56 PM CDT 10/28/2018 4:30 PM CDT Phoenix Livingston MD CHEMISTRY ORDERABLES Performing Organization Address City/[facility]/ZIP Co de Phone Number [facility] LABORATORY SERVICES [facility] CLIA# [id number] [address] [place] [address] * (ABNORMAL) COMPREHENSIVE METABOLIC PANEL (10/28/2018 3:56 PM CDT) Pathologist [facility] SODIUM 130(L) 136 - 145 mmol/L 10/28/2018 6:44 PM CDT [facility] LABORATORY SERVICES [facility] POTASSIUM 4.1 3.5 - 5.0 mmol/L 10/28/2018 6:44 PM CDT [facility] LABORATORY SERVICES - [facility] Comment:Slightly hemolyzed. Result may be falsely elevated. CHLORIDE 91(L) 98 - 107 mmol/L 10/28/2018 6:44 PM CDT [employer] LABORATORY SERVICES - [facility] CO2 22 22 - 29 mmol/L 10/28/2018 6:44 PM CDT [facility] LABORATORY SERVICES - [facility] CALCIUM 9.7 8.6 - 10.2 mg/dL 10/28/2018 6:44 PM CDT [facility] LABORATORY SERVICES - [facility] BUN 7 6 - 20 mg/dL 10/28/2018 6:44 PM CDT [facility] LABORATORY SERVICES - [facility] CREATININE 0.55 0.51 - 0.95 mg/dL 10/28/2018 6:44 PM CDT [facility] SERVICES - [facility] GLUCOSE 388(H) 74 - 99 mg/dL 10/28/2018 6:44 PM [facility] - [facility] TOTAL PROTEIN 7.3 6.7 - 8.6 g/dL 10/28/2018 6:44 PM [facility] LABORATORY SERVICES - . [facility] ALBUMIN 4.3 3.5 - 5.2 g/dL 10/28/2018 6:44 PM [facility]AT[facility] SERVICES - [facility] BILIRUBIN TOTAL 0.2(L) 0.3 - 1.2 mg/dL 10/28/2018 6:44 PM [facility]AT[facility] SERVICES - [facility] ALKALINE PHOSPHATASE 101 35 - 104 U/L 10/28/2018 6:44 PM [facility] SERVICES - [facility] AST 16 <33 U/L 10/28/2018 6:44 PM [facility] [employer] LABORATORY SERVICES [facility] Comment:Hemolysis present. R esult may be falsely elevated. ALT 16 <34 U/L 10/28/2018 6:44 PM [facility] [employer] [facility] GFR >60 >=60 mL/min/1.7 3 sq meter 10/28/2018 6:44 PM [facility] SERVICES - [facility] Comment: eGFR has not been [...] GFR, >60 >=60 mL/min/1.7 3 sq meter 10/28/2018 6:44 PM [facility]AT[facility] ANION GAP 17(H) 8 - 16 mmol/L 10/28/2018 6:44 PM [facility]ATORY [facility] Blood Venipuncture / Unknown 10/28/2018 3:56 PM CDT 10/28/2018 4:30 PM CDT Narrative [facility] LABORATORY SERVICES - [facility] - 10/28/2018 6:44 PM CDT Samples containing indocyanine green cause interferences on Total and/or Direct Bilirubin and must not be measured. Phoenix Livingston MD CHEMISTRY ORDERABLES [facility] LABORATORY SERVICES [facility] CLIA# [id number] [address] [place] [address] * (ABNORMAL) CBC WITH DIFFERENTIAL (10/28/2018 3:56 PM CDT) Pathologist [facility] WBC 10.5(H) 4.0 - 9.8 K/uL 10/28/2018 4:25 PM CDT [facility] LABORATORY [facility] - [facility] RBC 4.34 3.90 - 4.90 M/uL 10/28/2018 4:25 PM CDT [facility] LABORATORY [facility] - [facility] HEMOGLOBIN 13.9 11.8 - 14.8 g/dL 10/28/2018 4:25 PM CDT [facility] LABORATORY SERVICES - [facility] Comment: Sample warmed to 37C due to possible cold agglutinins. Results corrected for elevated lipids. HEMATOCRIT 40.0 35.5 - 44.0 % 10/28/2018 4:25 PM CDT [facility] LABORATORY SERVICES - [facility] MCV 92.2 82.0 - 99.0 fL 10/28/2018 4:25 PM CDT [facility] LABORATORY [facility] - [facility] MCH 32.0 27.2 - 32.6 pg 10/28/2018 4:25 PM CDT [facility] LABORATORY [facility] - [facility] MCHC 34.8 31.5 - 35.5 g/dL 10/28/2018 4:25 PM CDT [facility] LABORATORY SERVICES - [facility] RDW 15.4(H) 11.5 - 14.5 % 10/28/2018 4:25 PM CDT [facility] LABORATORY SERVICES - [facility] RDW-STDEV 49.8(H) 37.1 - 48.7 fL 10/28/2018 4:25 PM CDT [facility] LABORATORY SERVICES - [facility] PLATELETS 338 140 - 350 K/uL 10/28/2018 4:25 PM CDT [facility] LABORATORY SERVICES - [facility] MPV 9.4 9.3 - 12.4 fL 10/28/2018 4:25 PM CDT [facility] LABORATORY SERVICES [facility] Blood Venipuncture / Unknown 10/28/2018 3:56 PM CDT 10/28/2018 4:02 PM CDT Phoenix Livingston MD HEMATOLOGY ORDERABLE S [facility] LABORATORY SERVICES [facility] CLIA# [id number] [address] [facility] [place] [address] documented in this encounter Visit Diagnoses Diagnosis Chylomicronemia syndrome- Primary Hyperchylomicronemia Mixed hyperlipidemia Hypertriglyceridemia Pure hyperglyceridemia PCOS (polycystic ovarian syndrome) Polycystic ovaries Chylomicronemia syndrome Hyperchylomicronemia Type 2 diabetes mellitus without complication, with long-term current use of insulin Left upper quadrant pain Abdominal pain, left upper quadrant Acquired hypothyroidism Unspecified hypothyroidism Recurrent pancreatitis Chronic pancreatitis Metabolic syndrome Dysmetabolic Syndrome X History of gestational diabetes Personal history of gestational diabetes Family history of diabetes mellitus Family history of early CAD Family history of ischemic heart disease Hypothyroidism, unspecified type Nausea vomiting and diarrhea Nausea with vomiting Depression with anxiety Dysthymic disorder Tobacco use Tobacco use disorder Hyponatremia Hyposmolality and/or hyponatremia Gastroesophageal reflux disease, esophagitis presence not specified Epigastric pain Abdominal pain, epigastric History of plasmapheresis History of pancreatitis Personal history of other diseases of digestive system Type 2 diabetes mellitus without complication, with long-term current use of insulin Left upper quadrant pain Abdominal pain, left upper quadrant PCOS (polycystic ovarian syndrome) Polycystic ovaries Acquired hypothyroidism Unspecified hypothyroidism Hypertriglyceridemia Pure hyperglyceridemia Recurrent pancreatitis Chronic pancreatitis documented in this encounter Administered Medications Inactive Administered Medications - up to 3 most recent administrations Medication Order MAR Action Action Date Dose Rate Site acetaminophen (TYLENOL) tablet 650 mg 650 mg, Oral, EVERY 6 HOURS PRN, Starting on Sat10/28/18 at 1741, Until Sat10/31/18 at 1708, Other (See Comment), See admin instructions, Routine Given 10/29/2018 10:52 PM CDT 650 mg Given 10/29/2018 5:24 PM CDT 650 mg [id number] DR MAGUIRE 12 60-12-38 per capsule 2 Capsule 2 Capsule, Oral, FOUR TIMES DAILY WITH MEALS AND AT BEDTIME, First dose on Sat10/28/18 at 2100, Until Discontinued, Routine Given 10/31/2018 1:46 PM CDT 2 Capsules Given 10/31/2018 8:35 AM CDT 2 Capsules Given 10/30/2018 9:17 PM CDT 2 Capsules atorvastatin (LIPITOR) tablet 80 mg 80 mg, Oral, DAILY LATE, First dose on Sat10/28/18 at 1815, Until Discontinued, Routine Given 10/30/2018 4:11 PM CDT 80 mg Given 10/29/2018 5:22 PM CDT 80 mg Given 10/28/2018 8:06 PM CDT 80 mg nosrpuiknh-qbmqbhi-szyayowziq ine (CEPACOL) lozenge 1 Each 1 Each, Mouth/Throat, EVERY 2 HOURS PRN, Starting on Sat10/29/18 at 1757, Until Sat10/31/18 at 1708, Cough, Sore Throat, Routine Given 10/29/2018 8:15 PM CDT 1 Each calcium GLUCONATE 2,000 mg in sodium chloride 0.9% 120 mL IVPB 2,000 mg, IV, INTRA-PROCEDURE ONCE, 1 dose, Starting on Sat10/29/18 at 1100, Until Sat10/29/18 at 1414, Routine Rate Verify 10/29/2018 1:19 PM CDT 130.9 m L/hr New Bag 10/29/2018 1:19 PM CDT 2,000 mg 130.9 mL/hr calcium GLUCONATE 2,000 mg in sodium chloride 0.9% 120 mL IVPB 2,000 mg, IV, INTRA-PROCEDURE ONCE, 1 dose, Starting on Sat10/30/18 at 0830, Until Sat10/30/18 at 0956, Routine New Bag 10/30/2018 9:26 AM CDT 2,000 mg 133.3 m L/hr calcium GLUCONATE 2,000 mg in sodium chloride 0.9% 120 mL IVPB 2,000 mg, IV, ONE TIME ONLY, 1 dose, On Sat10/31/18 at 1000, Routine New Bag 10/31/2018 12:15 PM CDT 2,000 mg 120 mL/hr citalopram (CeleXA) tablet 40 mg 40 mg, Oral, DAILY AT BEDTIME, First dose on Sat10/28/18 at 2100, Until Discontinued, Routine Given 10/30/2018 9:17 PM CDT 40 mg Given 10/28/2018 9:13 PM CDT 40 mg dextrose 5% - sodium chloride 0.9% infusion IV, at 40 mL/hr, SEE ADMIN INSTRUCTIONS, Starting on Sat10/28/18 at 1742, Until Sat10/31/18 at 1708, Routine dextrose 50% (D50) syringe 12.5 Gram 12.5 Gram, IV, SEE ADMIN INSTRUCTIONS, Starting on Sat10/28/18 at 1742, Until Sat10/31/18 at 1708, Routine dextrose 50% (D50) syringe 25 Gram 25 Gram, IV, SEE ADMIN INSTRUCTIONS, Starting on Sat10/28/18 at 1742, Until Sat10/31/18 at 1708, Routine fenofibrate (LOFIBRA) tablet 160 mg 160 mg, Oral, DAILY, First dose on Sat10/29/18 at 0900, Until Discontinued, Routine Given 10/31/2018 8:35 AM CDT 160 mg Given 10/30/2018 8:32 AM CDT 160 mg Given 10/29/2018 5:20 PM CDT 160 mg Fish Oil-Adak-3 Fatty Acids 360-1,200 mg capsule 2 Capsule 2 Capsule, Oral, TWO TIMES DAILY, First dose on Sat10/28/18 at 2100, Until Discontinued, Routine Given 10/31/2018 8:35 AM CDT 2 Capsules Given 10/30/2018 9:17 PM CDT 2 Capsules Given 10/30/2018 8:32 AM CDT 2 Capsules glucagon (Human Recombinant) (GLUCAGEN) 1 mg/mL injection 1 mg 1 mg, IM, SEE ADMIN INSTRUCTIONS, Starting on Sat10/28/18 at 1742, Until Sat10/31/18 at 1708, Routine heparin injection 2,000 Units 2,000 Units, Dwell, DAILY, 5 doses, First dose on Sat10/29/18 at 0930, Last dose on Sat11/02/18 at 0900, Routine, TUBE TO STATION 516 Given 10/31/2018 1:27 PM CDT 2,000 Units Other (Comment) Given 10/30/2018 9:55 AM CDT 2,000 Units C hest, Right Given 10/29/2018 2:34 PM CDT 2,000 Units O ther (Comment) heparin injection 2,000 Units 2,000 Units, Dwell, DAILY, 5 doses, First dose on Sat10/29/18 at 0930, Last dose on Sat11/02/18 at 0900, Routine, Please tube to station [id number], blood bank Given 10/31/2018 1:26 PM CDT 2,000 Units Other (Comment) Given 10/30/2018 9:54 AM CDT 2,000 Units C hest, Right Given 10/29/2018 2:31 PM CDT 2,000 Units O ther (Comment) HYDROcodone-acetaminophen (NORCO) 5-325 mg per tablet 1 Tablet 1 Tablet, Oral, EVERY 4 HOURS PRN, Starting on Sat10/28/18 at 1741, Until Sat10/31/18 at 1708, Pain (See admin instructions), Routine Given 10/31/2018 11:42 AM CDT 1 Tablet Given 10/31/2018 3:06 AM CDT 1 Tablet Given 10/30/2018 9:17 PM CDT 1 Tablet HYDROcodone-acetaminophen (NORCO) 7.5-325 mg per tablet 1 Tablet 1 Tablet, Oral, EVERY 4 HOURS PRN, Starting on Sat10/28/18 at 1741, Until Sat10/31/18 at 1708, Pain (See admin instructions), Routine Given 10/30/2018 4:22 PM CDT 1 Tablet Given 10/29/2018 5:03 AM CDT 1 Tablet Given 10/28/2018 6:14 PM CDT 1 Tablet insulin glargine (LANTUS) injection 15 Units 15 Units, subCUT, TWO TIMES DAILY, First dose (after last modification) on Sat10/29/18 at 0930, Until Discontinued, Routine, If ordered at or before 3:00 pm give dose now and start daily with breakfast tomorrow. If ordered after 3:00 pm give dose now and start daily at bedtime tomorrow. Given 10/29/2018 12:28 PM CDT 15 Units Arm, Right Upper insulin glargine (LANTUS) injection 15 Units 15 Units, subCUT, TWO TIMES DAILY, First dose (after last modification) on Sat10/29/18 at 2100, Until Discontinued, Routine Given 10/31/2018 9:58 AM CDT 15 Units Arm, Left Upper Given 10/30/2018 10:46 PM CDT 15 Units A rm, Right Given 10/30/2018 10:31 AM CDT 15 Units A rm, Left Upper insulin lispro (HumaLOG) injection 7 Units 7 Units, subCUT, THREE TIMES DAILY WITH MEALS, First dose (after last modification) on Sat10/29/18 at 0930, Until Discontinued, Routine Given 10/31/2018 1:50 PM CDT 7 Units Arm, Right Upper Given 10/31/2018 9:57 AM CDT 4 Units Ar m, Left Upper Given 10/30/2018 6:53 PM CDT 7 Units Ar m, Right Upper insulin lispro (HumaLOG) variable dose injection subCUT, THREE TIMES DAILY WITH MEALS, First dose on Sat10/30/18 at 1200, Until Discontinued, Routine insulin lispro (HumaLOG) variable dose injection subCUT, DAILY AT BEDTIME, First dose on Sat10/30/18 at 2100, Until Discontinued, Routine insulin regular (HUMULIN R,NOVOLIN R) 100 Units in sodium chloride 0.9% 100 mL infusion 0-25 Units/hr (0-25 mL/hr), IV, TITRATE, Starting on Sat10/28/18 at 1745, Until Sat10/29/18 at 0903 Rate Change 10/29/2018 10:58 AM CDT 3 Units/hr 3 mL/hr Rate Verify 10/29/2018 8:06 AM CDT 2.5 Units/hr 2.5 mL/hr Rate Verify 10/29/2018 6:57 AM CDT 2.5 Units/hr 2.5 mL/hr levothyroxine (SYNTHROID) tablet 200 mcg 200 mcg, Oral, DAILY EARLY, First dose on Sat10/29/18 at 0600, Until Discontinued, Routine Given 10/31/2018 6:25 AM CDT 200 mcg Given 10/30/2018 6:06 AM CDT 200 mcg Given 10/29/2018 5:05 AM CDT 200 mcg LORazepam (ATIVAN) tablet 1 mg 1 mg, Oral, TWO TIMES DAILY PRN, Starting on Sat10/28/18 at 1741, Until Sat10/31/18 at 1708, Anxiety, Routine Given 10/28/2018 9:13 PM CDT 1 mg morphine 4 mg/mL injection 4 mg 4 mg, IV, ONE TIME ONLY, 1 dose, On Sat10/28/18 at 1645, Routine Given 10/28/2018 4:55 PM CDT 4 mg morphine 4 mg/mL injection 4 mg 4 mg, IV, EVERY 2 HOURS PRN, Starting on Sat10/28/18 at 1741, Until Sat10/31/18 at 1708, Pain (See admin instructions), Routine Given 10/29/2018 8:07 AM CDT 4 mg Given 10/29/2018 1:57 AM CDT 4 mg Given 10/28/2018 11:46 PM CDT 4 mg naloxone (NARCAN) 0.4 mg/mL injection 0.1 mg 0.1 mg, IV, SEE ADMIN INSTRUCTIONS, Starting on Sat10/28/18 at 1741, Until Sat10/31/18 at 1708, Routine Given 10/29/2018 4:55 PM CDT 0.1 mg ondansetron (ZOFRAN) 4 mg/2 mL injection 4 mg 4 mg, IV, ONE TIME ONLY, 1 dose, On Sat10/28/18 at 1600, Stat Given-See Override 10/28/2018 4:00 PM CDT 4 mg Given 10/28/2018 3:59 PM CDT 4 mg ONDANSETRON HCL (PF) 4 MG/2 ML INJECTION SOLUTION (CABINET OVERRIDE) 1 dose, Starting on Sat10/28/18 at 1558, Until Sat10/28/18 at 1600, Rigdoni OMNICELL: cabinet override pantoprazole (PROTONIX) tablet 40 mg 40 mg, Oral, TWO TIMES DAILY, First dose on Sat10/28/18 at 2100, Until Discontinued, Routine Given 10/31/2018 8:35 AM CDT 40 mg Given 10/30/2018 9:17 PM CDT 40 mg Given 10/30/2018 8:31 AM CDT 40 mg potassium Cl 20 mEq in dextrose 5% - NaCl 0.9% 1000 mL infusion IV, at 125 mL/hr, CONTINUOUS, Starting on Sat10/28/18 at 1745, Until Sat10/29/18 at 1515, Routine Rate Change 10/29/2018 1:01 PM CDT 20 mL/hr Restarted 10/29/2018 8:22 AM CDT 125 mL/hr Bag Switched 10/29/2018 4:58 AM CDT 125 mL/hr prochlorperazine (COMPAZINE) injection 10 mg 10 mg, IV, EVERY 6 HOURS PRN, Starting on Sat10/28/18 at 1744, Until Sat10/31/18 at 1708, Nausea/Emesis, Routine Given 10/31/2018 1:53 PM CDT 10 mg Given 10/30/2018 9:17 PM CDT 10 mg Given 10/29/2018 10:21 PM CDT 10 mg sodium chloride 0.9% bolus solution 1,000 mL 1,000 mL, IV, ONE TIME ONLY, 1 dose, On Sat10/29/18 at 1700, at 2,000 mL/hr, Administer over 30 Minutes, Routine New Bag 10/29/2018 5:05 PM CDT 1,000 mL 2000 mL/hr sodium chloride 0.9% infusion IV, at 100 mL/hr, CONTINUOUS, Starting on Sat10/28/18 at 1745, Until Sat10/29/18 at 1515, Routine Rate Verify 10/28/2018 9:00 PM CDT 100 mL/hr Rate Verify 10/28/2018 8:00 PM CDT 100 mL/hr Rate Verify 10/28/2018 7:14 PM CDT 100 mL/hr traZODone (DESYREL) tablet 100 mg 100 mg, Oral, DAILY AT BEDTIME, First dose on Sat10/28/18 at 2100, Until Discontinued, Routine Given 10/30/2018 9:17 PM CDT 100 mg Given 10/28/2018 9:13 PM CDT 100 mg documented in this encounter Active and Recently Administered Medications Times are shown in CDT. Scheduled Medication Order 10/29/2018 10/30/2018 10/31/2018 lnzlupp-gekkya-husfvqg e CREON 12) 79-12-62 per capsule 2 Capsule 2 Capsule, Oral, FOUR TIMES DAILY WITH MEALS AND AT BEDTIME, First dose on Sat10/28/18 at 2100, Until Discontinued, Routine 0700 (Not Given - Provider: Katia Lima RN - Reason: Patient NPO)1200 (Not Given - Provider: Katia Lima RN - Reason: Clarify-Other (Comment))1700 (Not Given - Provider: Katia Lima RN - Reason: Patient condition)2017 (Given - Provider: Humaira Regalado RN) 0832 (Given - Provider: Yamil Del Toro RN)1125 (Given - Provider: Yamil Del Toro RN)1611 (Given - Provider: Yamil Del Toro RN)2117 (Given - Provider: Humaira Regalado RN) 0835 (Given - Provider: Yamil Del Toro RN)1346 (Given - Provider: Yamil Del Toro RN) atorvastatin (LIPITOR) tablet 80 mg 80 mg, Oral, DAILY LATE, First dose on Sat10/28/18 at 1815, Until Discontinued, Routine 1722 (Given - Provider: Katia Lima RN) 1611 (Given - Provider: Yamil Del Toro RN) calcium GLUCONATE 2,000 mg in sodium chloride 0.9% 120 mL IVPB (COMPLETED) 2,000 mg, IV, INTRA-PROCEDURE ONCE, 1 dose, Starting on Sat10/29/18 at 1100, Until Sat10/29/18 at 1414, Routine 1319 (New Bag - Provider: Rosales Tapia RN)1319 (Rate Verify - Provider: Katia Lima RN)1414 (Stopped - Provider: Katia Lima RN) calcium GLUCONATE 2,000 mg in sodium chloride 0.9% 120 mL IVPB (COMPLETED) 2,000 mg, IV, INTRA-PROCEDURE ONCE, 1 dose, Starting on Sat10/30/18 at 0830, Until Sat10/30/18 at 0956, Routine 0926 (New Bag - Provider: Rosales Tapia RN)0956 (Stopped - Provider: Yamil Del Toro RN) calcium GLUCONATE 2,000 mg in sodium chloride 0.9% 120 mL IVPB (COMPLETED) 2,000 mg, IV, ONE TIME ONLY, 1 dose, On Sat10/31/18 at 1000, Routine 1215 (New Bag - Provider: Rosales Tapia RN)1315 (Stopped - Provider: Robyn Hernandez RN) ceFAZolin (ANCEF) 2,000 mg in dextrose (iso-osmotic) 100 mL IVPB (PREMIX) (COMPLETED) 2,000 mg, IV, PRE-PROCEDURE ONCE, 1 dose, Starting on Sat10/29/18 at 0740, Until Sat10/29/18 at 1117, Routine, Antibiotic Indication: Surgical prophylaxis 1107 (Given - Provider: NOREEN Hernandez)1117 (Stopped - Provider: NOREEN Hernandez) citalopram (CeleXA) tablet 40 mg 40 mg, Oral, DAILY AT BEDTIME, First dose on Sat10/28/18 at 2100, Until Discontinued, Routine 2015 (Not Given - Provider: Humaira Regalado RN - Reason: Patient condition - Comment: Pt continues to be drowsy) 2116 (Given - Provider: Humaira Regalado RN) dextrose 5% - sodium chloride 0.9% infusion IV, at 40 mL/hr, SEE ADMIN INSTRUCTIONS, Starting on Sat10/28/18 at 1742, Until Sat10/31/18 at 1708, Routine dextrose 50% (D50) syringe 12.5 Gram 12.5 Gram, IV, SEE ADMIN INSTRUCTIONS, Starting on Sat10/28/18 at 1742, Until Sat10/31/18 at 1708, Routine dextrose 50% (D50) syringe 25 Gram 25 Gram, IV, SEE ADMIN INSTRUCTIONS, Starting on Sat10/28/18 at 1742, Until Sat10/31/18 at 1708, Routine fenofibrate (LOFIBRA) tablet 160 mg 160 mg, Oral, DAILY, First dose on Sat10/29/18 at 0900, Until Discontinued, Routine 1720 (Given - Provider: Katia Lima RN) 0832 (Given - Provider: Yamil Del Toro RN) 0835 (Given - Provider: Yamil Del Toro RN) Fish Oil-Adak-3 Fatty Acids 360-1,200 mg capsule 2 Capsule 2 Capsule, Oral, TWO TIMES DAILY, First dose on Sat10/28/18 at 2100, Until Discontinued, Routine 1720 (Given - Provider: Katia Lima RN)2014 (Given - Provider: Humaira Regalado RN) 08 (Given - Provider: Yamil Del Toro RN)2116 (Given - Provider: Humaira Regalado RN) 0835 (Given - Provider: Yamil Del Toro RN) glucagon (Human Recombinant) (GLUCAGEN) 1 mg/mL injection 1 mg 1 mg, IM, SEE ADMIN INSTRUCTIONS, Starting on Sat10/28/18 at 1742, Until Sat10/31/18 at 1708, Routine heparin injection 2,000 Units 2,000 Units, Dwell, DAILY, 5 doses, First dose on Sat10/29/18 at 0930, Last dose on Sat11/02/18 at 0900, Routine, TUBE TO STATION 516 1434 (Given - Provider: Katia Lima RN) 0955 (Given - Provider: Rosales Tapia RN - Comment: bard port) 1327 (Given - Provider: Robyn Hernandez, CLAU - Comment: distal port) heparin injection 2,000 Units 2,000 Units, Dwell, DAILY, 5 doses, First dose on Sat10/29/18 at 0930, Last dose on Sat11/02/18 at 0900, Routine, Please tube to station 516, blood bank 1431 (Given - Provider: Katia Lima RN) 0954 (Given - Provider: Rosales Tapia RN - Comment: bard port) 1326 (Given - Provider: Robyn Hernandez, CLAU - Comment: MEDIAL PORT) insulin glargine (LANTUS) injection 15 Units (CANCELED) 15 Units, subCUT, TWO TIMES DAILY, First dose (after last modification) on Sat10/29/18 at 0930, Until Discontinued, Routine, If ordered at or before 3:00 pm give dose now and start daily with breakfast tomorrow. If ordered after 3:00 pm give dose now and start daily at bedtime tomorrow. 1228 (Given - Provider: Katia Lima RN - Comment: BG 165.) insulin glargine (LANTUS) injection 15 Units 15 Units, subCUT, TWO TIMES DAILY, First dose (after last modification) on Sat10/29/18 at 2100, Until Discontinued, Routine 2226 (Given - Provider: Humaira Regalado RN - Comment: BS 155) 1031 (Given - Provider: Yamil Del Toro RN - Comment: bg 146)2246 (Given - Provider: Humaira Regalado RN - Comment: BS 103) 0958 (Given - Provider: Yamil Del Toro RN - Comment: bg 99) insulin lispro (HumaLOG) injection 7 Units 7 Units, subCUT, THREE TIMES DAILY WITH MEALS, First dose (after last modification) on Sat10/29/18 at 0930, Until Discontinued, Routine 0930 (Canceled Entry - Provider: Katia Lima RN)1200 (Not Given - Provider: Katia Lima RN - Reason: Patient condition - Comment: Pt still on insulin gtt.)1950 (Given - Provider: Humaira Regalado RN - Comment: BS 155) 1031 (Given - Provider: Yamil Del Toro RN - Comment: bg 146)1403 (Given - Provider: Yamil Del Toro RN - Comment: bg 112)1853 (Given - Provider: Yamil Del Toro RN - Comment: bg 157) 0957 (Given - Provider: Yamil Del Toro RN - Comment: bg 99. reduced to 4 units per admin. instructions.)1350 (Given - Provider: Yamil Del Toro RN) insulin lispro (HumaLOG) variable dose injection subCUT, THREE TIMES DAILY WITH MEALS, First dose on Sat10/30/18 at 1200, Until Discontinued, Routine 1200 (Not Given - Provider: Yamil Del Toro RN - Reason: Lab results - Comment: bg 112)1700 (Not Given - Provider: Yamil Del Toro RN - Reason: Lab results - Comment: bg 157) 0700 (Not Given - Provider: Yamil Del Toro RN - Reason: Lab results - Comment: bg 99)1200 (Not Given - Provider: Yamil Del Toro RN - Reason: Lab results - Comment: bg 170) insulin lispro (HumaLOG) variable dose injection subCUT, DAILY AT BEDTIME, First dose on Sat10/30/18 at 2100, Until Discontinued, Routine 2300 (Not Given - Provider: Humaira Regalado RN - Reason: Patient condition - Comment: BS 103) levothyroxine (SYNTHROID) tablet 200 mcg 200 mcg, Oral, DAILY EARLY, First dose on Sat10/29/18 at 0600, Until Discontinued, Routine 0505 (Given - Provider: Humaira Regalado RN) 0606 (Given - Provider: Humaira Regalado RN) 0625 (Given - Provider: Humaira Regalado RN) lidocaine (L.M.X.4) 4 % topical cream Topical, ONE TIME ONLY, 1 dose, On Sat10/29/18 at 0930, Routine, Please tube to station 516, blood bank 0930 (Canceled Entry - Provider: Katia Lima RN) naloxone (NARCAN) 0.4 mg/mL injection 0.1 mg 0.1 mg, IV, SEE ADMIN INSTRUCTIONS, Starting on Sat10/28/18 at 1741, Until Sat10/31/18 at 1708, Routine 1655 (Given - Provider: Katia Lima RN) pantoprazole (PROTONIX) tablet 40 mg 40 mg, Oral, TWO TIMES DAILY, First dose on Sat10/28/18 at 2100, Until Discontinued, Routine 1720 (Given - Provider: Katia Lima RN)2100 (Canceled Entry - Provider: Katia Lima RN) 0831 (Given - Provider: Yamil Del Toro RN)2116 (Given - Provider: Humaira Regalado RN) 0835 (Given - Provider: Yamil Del Toro RN) sodium chloride 0.9% bolus solution 1,000 mL (COMPLETED) 1,000 mL, IV, ONE TIME ONLY, 1 dose, On Sat10/29/18 at 1700, at 2,000 mL/hr, Administer over 30 Minutes, Routine 1705 (New Bag - Provider: Katia Lima RN)1735 (Stopped - Provider: Katia Lima RN) traZODone (DESYREL) tablet 100 mg 100 mg, Oral, DAILY AT BEDTIME, First dose on Sat10/28/18 at 2100, Until Discontinued, Routine 2100 (Not Given - Provider: Humaira Regalado RN - Reason: Patient condition - Comment: Pt drowsy) 2116 (Given - Provider: Humaira Regalado RN) Continuous Medication Order 10/29/2018 10/30/2018 10/31/2018 insulin regular (HUMULIN R,NOVOLIN R) 100 Units in sodium chloride 0.9% 100 mL infusion (CANCELED) 0-25 Units/hr (0-25 mL/hr), IV, TITRATE, Starting on Sat10/28/18 at 1745, Until Sat10/29/18 at 0903 0000 (Rate Verify - Provider: Humaira Regalado RN)0044 (Rate Verify - Provider: Humaira Regalado RN - Comment: Current BS 116, no change in BS since last rate change, NO RATE CHANGE)0100 (Rate Verify - Provider: Humaira Regalado RN)0153 (Rate Change - Provider: Humaira Regalado RN)0154 (Rate Verify - Provider: Humaira Regalado RN)0200 (Rate Verify - Provider: Humaira Regalado RN)0254 (Paused - Provider: Humaira Regalado RN)0255 (Rate Change - Provider: Humaira Regalado RN - Comment: Current BS 78 (Previous BS 92) - rate decreased by 1unit/hr)0350 (Rate Verify - Provider: Humaira Regalado RN - Comment: BS 81 - NO CHANGE)0500 (Rate Change - Provider: Humaira Regalado RN - Comment: Current BS 77 (Previous BS 81) - decrease rate by 1 unit/hr)0556 (Rate Verify - Provider: Humaira Regalado RN)0657 (Rate Verify - Provider: Humaira Regalado RN - Comment: BS 102 - NO CHANGE)0806 (Rate Verify - Provider: Katia Lima RN)1058 (Rate Change - Provider: Katia Lima RN - Comment: BG 150.)1430 (Stopped - Provider: Katia Lima RN) potassium Cl 20 mEq in dextrose 5% - NaCl 0.9% 1000 mL infusion (CANCELED) IV, at 125 mL/hr, CONTINUOUS, Starting on Sat10/28/18 at 1745, Until Sat10/29/18 at 1515, Routine 0000 (Rate Verify - Provider: Humaira Regalado RN)0100 (Rate Verify - Provider: Humaira Regalado RN)0200 (Rate Verify - Provider: Humaira Regalado RN)0300 (Rate Verify - Provider: Humaira Regalado RN)0400 (Rate Verify - Provider: Humaira Regalado RN)0457 (Rate Change - Provider: Katia Lima RN)0458 (Paused - Provider: Katia Lima RN)0458 (Bag Switched - Provider: Humaira Regalado RN)0819 (Paused - Provider: Katia Lima RN)0822 (Restarted - Provider: Katia Lima RN)1301 (Rate Change - Provider: Katia Lima RN)1311 (Stopped - Provider: Katia Lima RN)1400 (Stopped - Provider: Katia Lima RN) PRN Medication Order 10/29/2018 10/30/2018 10/31/2018 acetaminophen (TYLENOL) tablet 650 mg 650 mg, Oral, EVERY 6 HOURS PRN, Starting on Sat10/28/18 at 1741, Until Sat10/31/18 at 1708, Other (See Comment), See admin instructions, Routine 1724 (Given - Provider: Katia Lima RN)2252 (Given - Provider: Humaira Regalado RN) zsytvzybyp-icvsxts-yzu ylpyridine (CEPACOL) lozenge 1 Each 1 Each, Mouth/Throat, EVERY 2 HOURS PRN, Starting on Sat10/29/18 at 1757, Until Sat10/31/18 at 1708, Cough, Sore Throat, Routine 2014 (Given - Provider: Humaira Regalado RN) bisacodyl (DULCOLAX) rectal suppository 10 mg 10 mg, Rectal, DAILY PRN, Starting on Sat10/28/18 at 1741, Until Sat10/31/18 at 1708, Constipation, Routine docusate sodium (COLACE) capsule 100 mg 100 mg, Oral, TWO TIMES DAILY PRN, Starting on Sat10/28/18 at 1741, Until Sat10/31/18 at 1708, Constipation, Routine HYDROcodone-acetaminop hen (NORCO) 5-325 mg per tablet 1 Tablet 1 Tablet, Oral, EVERY 4 HOURS PRN, Starting on Sat10/28/18 at 1741, Until Sat10/31/18 at 1708, Pain (See admin instructions), Routine 1431 (Given - Provider: Yamil Del Toro RN)2117 (Given - Provider: Humaira Regalado RN) 0306 (Given - Provider: Humaira Regalado RN)1142 (Given - Provider: Yamil Del Toro RN) HYDROcodone-acetaminop hen (NORCO) 7.5-325 mg per tablet 1 Tablet 1 Tablet, Oral, EVERY 4 HOURS PRN, Starting on Sat10/28/18 at 1741, Until Sat10/31/18 at 1708, Pain (See admin instructions), Routine 0503 (Given - Provider: Humaira Regalado RN) 1622 (Given - Provider: Yamil Del Toro RN) LORazepam (ATIVAN) tablet 1 mg 1 mg, Oral, TWO TIMES DAILY PRN, Starting on Sat10/28/18 at 1741, Until Sat10/31/18 at 1708, Anxiety, Routine morphine 4 mg/mL injection 4 mg 4 mg, IV, EVERY 2 HOURS PRN, Starting on Sat10/28/18 at 1741, Until Sat10/31/18 at 1708, Pain (See admin instructions), Routine 0157 (Given - Provider: Humaira Regalado RN)0807 (Given - Provider: Katia Lima RN) prochlorperazine (COMPAZINE) injection 10 mg 10 mg, IV, EVERY 6 HOURS PRN, Starting on Sat10/28/18 at 1744, Until Sat10/31/18 at 1708, Nausea/Emesis, Routine 0817 (Given - Provider: Katia Lima RN)2221 (Given - Provider: Humaira Regalado RN) 2117 (Given - Provider: Humaira Regalado RN) 1353 (Given - Provider: Yamil Del Toro RN) documented in this encounter Care Teams Vending Manager Relationship Specialty Start Date End Date Guerrero Middleton PA-C PCP - General Physician 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
--- OUTSIDE RECORDS SUMMARY | 2024-05-03 20:44 | XMS_ITS | Encounter Summary ---
Author Organization [facility] Address [address] [place] [address] Care Team Providers Care Fur Finisher Name Role Phone Guerrero Middleton PA-C Primary Care Provide r Reason for Visit * Reason Comments Epigastric Pain reports having epiga stric discomfort and nausea that started today. Also reports headache and rash. Reports generalized body aches for a couple of days. States these symptoms are consistent with pt reports hx of chylomicronemia which causes increases cholesterol levels. Pt also with swollen eyelids. * Auth/Cert Specialty Diagnoses / Procedures Referred By Tequila bowman Referred To Contact Critical Care Medicine [facility] Transitional Care Unit [address] [place] [address] Referral ID Status Reason Start Date Expiration Date Visits Re quested Visits Authorized [id number] 1 1 Encounter Details Date Type Department Care Team (Latest Contact Info) Description 09/28/2018 6:09 PM CDT - 10/02/2018 4:45 PM CDT Hospital Encounter [facility] Transitional Care Unit [address] [place] [address] Abhay Lan MD [address] [place] [address] Albert Silveira MD [address] [place] [address] Puja Pagan MD [address] [place] [address] Leonel Valadez, DO [address] [place] [address] Chylomicronemia syndrome Discharge Disposition: Home or Self [...] How often do you attend chur or zoroastrianism services? Never 08/21/2018 Do you [...] Sign Reading Time Taken Comments Blood Pressure 125/72 10/02/2018 10:59 AM CDT Pulse 96 10/02/2018 10:59 AM CDT Temperature 36.6 ??C (97.8 ??F) 10/02/2018 10:58 AM C DT Respiratory Rate 19 10/02/2018 10:59 AM CDT Oxygen Saturation 98% 10/02/2018 10:59 AM CDT Inhaled Oxygen Concentration - - Weight 89.6 kg (197 lb 9.6 oz) 10/01/2018 11:05 AM CDT Height 165.1 cm (5' 5 ) 09/28/2018 9:48 PM CDT Body Mass Index 32.88 09/28/2018 9:48 PM CDT documented in this encounter Discharge Summaries * Leonardo Dhaliwal MD - 10/02/2018 11:36 AM CDT [facility] Adult Discharge Summary Casandra Doss 42 y.o. female 1975 CSN: [id number] Date of Admission: 09/28/2018 Date of Discharge: 10/02/2018 Discharging Physician: Leonardo Dhaliwal MD LOS: 3 days PCP: Guerrero Middleton PA-C Activity: activity as tolerated. Dispo: home Diet: Low fat diet. Code Status at Discharge: FULL Wound Care: None needed 45 Minutes spent in the d/c process today. Admitting Dx and Chief Complaint Chief Complaint Patient presents with ??? Epigastric Pain reports having epigastric discomfort and nausea that started today. Also reports headache and rash.Reports generalized body aches for a couple of days. States these symptoms are consistent with pt reports hx of chylomicronemia which causes increases cholesterol levels. Pt also with swollen eyelids. Chylomicronemia syndrome Discharge Diagnoses and Relevant Hospital Course: Principal Problem: Chylomicronemia syndrome Active Problems: Hypertriglyceridemia Depression with anxiety Type 2 diabetes mellitus without complication, with long-term current use of insulin Hyponatremia Abdominal pain History of plasmapheresis History of pancreatitis Ms. Peña is a 40 female with significant past medical history of hypertriglyceridemia, chylomicronemia syndrome presented to the hospital with recurrent abdominal pain. Patient had normal lipase levels and did not have any clinical evidence of severe pancreatitis. Patient's fasting glucose were found to be elevated to 370 on admission and had triglycerides too high to be measured. Patient's abdominal symptoms were likely secondary to chylomicronemia syndrome causing significant abdominal painand discomfort. Patient was initially managed by bowel rest, pain control, IV hydration and insulindrip to bring the triglyceride levels and down. Patient's triglyceride levels became measurable to greater than 4200. Subsequently it was decided to proceed with plasmapheresis and patient's management was transitioned from insulin drip strategy to plasmapheresis. Patient received 3 sessions of plasmapheresis while in hospital to which the patient clinically responded and her triglycerides came down to the goal of less than 500. Patient did not have a good response to niacin therapy and had significant flushing and poor response to triglyceride levels so the therapy was withheld at discharge.Patient was able to tolerate oral diet and her symptoms had resolved at discharge. In keeping view of patient's multiple admissions to the hospital and recurrent requirements of plasmapheresis, it was decided to set up outpatient plasmapheresis regimen for the patient. Patient would require a port placement as an outpatient for long-term prophylactic plasmapheresis to prevent recurrent symptoms and prevent long-term complications. Patient agreed to the plan and will follow-up as an outpatient for plasma exchange. Discharge medications and new prescriptions: Medication List CONTINUE taking these medications citalopram 40 mg tablet Commonly known as: CeleXA Take 40 mg by mouth daily at bedtime. Refills: 0 CREON 60-12-38 capsule Take 2 Capsules by mouth 4 times daily with meals and at bedtime. Refills: 0 Generic drug: laconam-olccsc-ctzscipk DR dicyclomine 10 mg capsule Commonly known as: BENTYL Take 1 Capsule by mouth 4 times daily. Signed by: SANJUANA SELLERS MD Quantity: 60 Capsule Refills: 0 fenofibrate [...] Blake Rudd MD Quantity: 30 Tablet Refills: 0 LORazepam 1 [...] . Refills: 0 STOP taking these medications niacin 500 mg tablet Commonly known as: NIACOR Consultants: IP CONSULT TO CASE MANAGEMENT IP CONSULT TO SOCIAL WORK IP CONSULT TO SOCIAL WORK IP CONSULT TO PATHOLOGY IP CONSULT TO INTERVENTIONAL RADIOLOGY Brief Synopsis of Diagnostic Studies This Admission (Please see full report for details): ?? NA Labs and Studies from this Hospitalization Needing Follow Up: ?? None Discharge Lab Data (Please note date of lab as some may have preceeded admission) Lab Results Component Value Date/Time WBC 7.5 10/02/2018 05:00 AM HEMOGLOBIN 11.1 (L) 10/02/2018 05:00 AM HEMATOCRIT 33.9 (L) 10/02/2018 05:00 AM PLATELETS 159 10/02/2018 05:00 AM SODIUM 139 10/02/2018 05:00 AM CHLORIDE 105 10/02/2018 05:00 AM POTASSIUM 3.7 10/02/2018 05:00 AM CO2 24 10/02/2018 05:00 AM BUN 4 (L) 10/02/2018 05:00 AM CREATININE 0.49 (L) 10/02/2018 05:00 AM GLUCOSE 167 (H) 10/02/2018 05:00 AM INR 1.1 10/01/2018 04:36 AM AST 09/29/2018 04:10 AM Comment: Unable to evaluate due to lipemia and interference on analyzer. ALT 09/29/2018 04:10 AM Comment: Unable to evaluate due to lipemia and interference on analyzer. CRP 115.8 (H) 08/23/2018 07:04 AM Discharge Exam: BP 125/72 Pulse 96 Temp 97.8 ??F (36.6 ??C) (Oral) Resp 19 Ht 5' 5 (1.651 m) Wt 89.6 kg (197 lb 9.6 oz) SpO2 98% BMI 32.88 kg/m?? Last documented weight: Weight: 89.6 kg (197 lb 9.6 oz) (10/01/18 1105) Physical Exam: General alert, cooperative, no distress, appears stated age Lungs clear to auscultation bilaterally Heart regular rate and rhythm, S1, S2 normal, no murmur, click, rub or gallop Abdomen soft, non-tender, without masses or organomegaly Extremities Normal, no edema Skin Skin color, texture, turgor normal. No rashes or lesions Discharge Condition: improving. Follow-up: You must follow up with Guerrero Middleton PA-C in NO MORE THAN 7 DAYS Signed: Leonardo Dhaliwal MD 10/02/2018, 1:49 PM PGY-1 Internal medicine This patient is covered by internal medicine residents ?? To reach Internal Medicine covered patients: ?? Saturday-Saturday 7 AM- 5 PM: Page via the [facility] E-List 5 PM-7 AM: Call the personal banking representative web development intern at [employer] phone [phone]. If no response please page the senior resident at [phone] ?? Saturday and Saturday: 7 AM-12 PM: Page via the [facility] E-List 12 PM-7 AM: Call the personal banking representative web development intern at [employer] phone [phone]. If no response please page the senior resident at [phone] ?? If no response to the above steps in 10 minutes, please page the attending physician. Associated attestation - Leonel Valadez DO - 10/02/2018 2:32 PM CDT [facility] Adult Hospitalist Attending Note Patient seen and examined with the resident team (Dr. Dhaliwal) on 10/02/2018. I have reviewed the note as written and agree with the assessment and plan with the exceptions, if any, noted below. Objective: NAD, abdomen soft, conversational, breathing even and unlabored Assessment/Plan: Severe hypertriglyceridemia: she did not have objective evidence of acute pancreatitis, but has hadrepeated hospitalizations for hypertriglyceridemia and abdominal pain. We initiated plasmapheresis to get the triglyceride level <500. I discussed outpatient plasmapheresis plan of action with . Likely to be started on bi-monthly schedule in 2-3 weeks following discharge. She will be arranged for pheresis port as an outpatient. Rest per resident note. >30 minutes spent in discharge process today. Leonel Valadez DO [facility] Adult Hospitalist For discharge questions please contact my office at . documented in this encounter Discharge Instructions * Discharge Instructions* Leonardo Dhaliwal MD - 10/02/2018 11:49 AM CDT Your discharging physician is Leonel Valadez DO and may be reached at [phone] for any questions or concerns until you see your doctor. FOLLOW-UP Follow up with Guerrero Middleton PA-C in 1 week(s). Prescriptions given? No SIGNS AND SYMPTOMS TO REPORT Contact your health care provider if you experience any of the following symptoms: Worsening abdominal pain, inability to tolerate meals, fevers or any other concerning symptoms. Smoking Exposure: [facility] encourages all patients to decrease risks associated with smoking and second hand smoke exposure. If you smoke you are advised to quit. Ask your health care provider for advice if you need assistance to stop smoking. Avoid second-hand smoke exposure and do not let people smoke in your home. Please call [phone], our pulmonary rehabilitation department, to learn more about options to reduce your risks. ACTIVITY Your activity level is: no smoking. DIET Your diet is: Low fat diet documented in this encounter Medications at Time of Discharge Medication Sig Dispensed Refills Start Date End Date traZODone (DESYREL) 100 mg tablet Take 100 mg by mouth daily at bedtime . metFORMIN (GLUCOPHAGE) 500 mg tablet Take 500 mg by mouth 2 times daily. 06/05/2018 09/26/2023 levothyroxine 200 mcg tabletIndications:Hyp othyroidism Take 1 Tablet by mouth daily without food in the morning 30 minutes before eating anything. 30 Tablet 08/28/2018 10/28/2018 HYDROcodone-acetamino phen (NORCO) 5-325 mg tabletIndications:Gen eralized [...] as of this encounter Progress Notes * Nora Agarwal RN - 10/02/2018 2:37 PM CDT Line removed by Dr. Sheffield. Pressure held by Francisco Fonseca RN. Dressing applied. Pt tolerated well. * Nabeel Gomez GN - 10/02/2018 6:15 AM CDT PRN norco and morphine given for headache and abdominal pain with relief. Benedryl given twice for niacin flush. VSS on room air. Clear lung sounds. Up standby to bathroom. Triglycerides 478 this AM.Will continue to monitor closely. * Elmer Ortega MD - 10/01/2018 9:37 PM CDT CROSS COVER RESIDENT PROGRESS NOTE RN called. Patient had niacin and is feeling burning. No distinct rash, no swelling, no respiratoryissues. Patient had benadryl 25 mg PO around 1900. Ordered an additional 25 mg and advised RN to let me know if any further issues. Will notify day team of this reaction. Logan Ortega MD PGY-1 * Jack Arteaga MD - 10/01/2018 4:49 PM CDT CC: ??42 yo female with hypertriglyceridemia associated??with abdominal pain (ASFA category III indication for apheresis). ?? HPI: ??Epigastric abdominal pain, nausea and vomiting x1 day on background of chronic abdominal pain. ? PMH: ??Hypertriglyceridemia (associated with prior episodes of pancreatitis), DM, anxiety, GERG, HLD, hypothyroidism, PCOS ?? Meds: as per EPIC. ?? Exam: ??Patient resting in bed. ??Catheter in place in R??neck with clear, occlusive dressing in place. ??No erythema, induration or drainage observed. ?? Labs: WBC??7.2, Hgb 10.9, Hct 32.6, Plt 176, triglycerides??1,209??(pre-procedure) ?? A&P: 1. 42 yo female with hypertriglyceridemia associated??with abdominal pain requires plasma exchange. 2. ??Plan plasma exchange daily until triglycerides <??500. 3. ??We will perform a 1.0 volume plasma exchange with all albumin replacement with 100% fluid balance with 2 g calcium gluconate over the procedure. 4. Notes indicate primary team would like to set up outpatient exchanges. I will work with primary team to get this set up. I would like to pursue placement of an apheresis port, which can be placed in the outpatient setting by IR. I have discussed this possibility with the patient and she is amenable. Discussed case with Dr. Valadez, who wants to finish acute treatment inpatient and then have patient follow up for maintenance treatments as an outpatient. ?? Procedure #3: ??Patient tolerated the procedure well. ??After procedure, patient complained of feeling cold and a little nauseous. No change in vitals. If a procedure is necessary tomorrow we will monitor for signs of hypocalcemia closely. ?? I have seen and examined the patient, reviewed pertinent notes and records, and remained immediately available throughout the procedure. ?? Jack Arteaga MD, PhD Gluing Machine Adjuster, therapeutic apheresis service [phone] * Rosales Tapia RN - 10/01/2018 3:21 PM CDT Plasma exchange number 3 using the right tunneled catheter for access and return with 5% albumin asreplacement fluids for a 1.0 volume exchange. Procedure completed without issues. * Leonardo Dhaliwal MD - 10/01/2018 11:57 AM CDT [facility] Adult Progress Note Admit Date: 09/28/2018 Date of Note: 10/01/2018, 1:14 PM LOS: 2 days Plan Active Problems: Principal Problem: Chylomicronemia syndrome Active Problems: Hypertriglyceridemia Depression with anxiety Type 2 diabetes mellitus without complication, with long-term current use of insulin Hyponatremia Abdominal pain History of plasmapheresis History of pancreatitis Abdominal pain: Improving Likely secondary to suspected chylomicronemia syndrome. TG trend coming down to 1209 today Lipase normal Plasmapheresis day 3 today. Diet advanced to Low fat. Pain control with [place] PRN and morphine for breakthrough. Hypertriglyceridemia: TG coming down, Plasmapheresis day 3 today Hx of pancreatitis 2/2 inc. TG in past Acute on chronic contributed by hyperglycemia at presentation as well Resuming CODING COMPLIANCE AUDITOR Lofibra 160 mg daily, Niacin CODING COMPLIANCE AUDITOR, Crestor and Creon Management as above Plasmapheresis day 3 today Type 2 diabetes mellitus with insulin use: Not at goal Poor 24 hour control, increased numbers in AM today On hyperglycemia pathway Holding CODING COMPLIANCE AUDITOR Lantus NovoLog and metformin home doses Re-titrated LantusLantus 20 units in AM and 30 units at bed time with 8 units with meals and slide Hypothyroidism: Resuming CODING COMPLIANCE AUDITOR levothyroxine 200 mcg Anxiety and depression: Stable, Resuming CODING COMPLIANCE AUDITOR Celexa Resuming CODING COMPLIANCE AUDITOR Lorazepam 1 mg twice daily as needed Insomnia: Stable: Resuming CODING COMPLIANCE AUDITOR trazodone 100 mg GERD: Stable Resuming CODING COMPLIANCE AUDITOR Protonix Tobacco use: On Nicoderm patch Quality/Safety/Core Measures/Disposition Planning: DVT Prophylaxis - Enoxaparin PT/OT:yes Pettit catheter:absent Current Code Status -Full Code Plan discussed with patient, questions answered. Current Planned Disposition - Dispo: home pending clinical improvement. Subjective Previous history of present illness and review of systems have been reviewed today as documented inthe H&P on 09/28/2018; medications, labs, studies, notes, orders and consults have been reviewed.I have reviewed the notes from admission. Overnight: Clinically better overall since yesterday. Tolerated diet Objective BP 109/65 (BP Location: Left arm, Patient Position (BP): Supine) Pulse 88 Temp 97.9 ??F (36.6 ??C) (Oral) Resp 10 Ht 5' 5 (1.651 m) Wt 91.2 kg (201 lb) SpO2 98% BMI 33.45 kg/m?? Temp (24hrs), Av.4 ??F (36.9 ??C), Min:97.9 ??F (36.6 ??C), Max:99.1 ??F (37.3 ??C) Exam: Gen alert, cooperative, some distress, appears stated age Lungs clear to auscultation bilaterally Heart regular rate and rhythm, S1, S2 normal, no murmur, click, rub or gallop Abdomen soft, non-tender. Bowel sounds normal. No masses, No organomegaly Extremities extremities normal, atraumatic, no cyanosis or edema Mental Status AOX4 Data: I have reviewed all new labs and studies resulted and pertinent ones are noted below More than 45 minutes were spent in the care of this patient today; more than 50% was spent in discussion of expected course of disease, discussion of prognosis, discharge planning, coordination of care and discussion of lab and test results. Leonardo Dhaliwal MD PGY-1 Internal medicine This patient is covered by internal medicine residents ?? To reach Internal Medicine covered patients: ?? Saturday-Saturday 7 AM- 5 PM: Page via the [facility] E-List 5 PM-7 AM: Call the personal banking representative web development intern at [employer] phone [phone]. If no response please page the senior resident at [phone] ?? Saturday and Saturday: 7 AM-12 PM: Page via the [facility] E-List 12 PM-7 AM: Call the personal banking representative web development intern at [employer] phone [phone]. If no response please page the senior resident at [phone] ?? If no response to the above steps in 10 minutes, please page the attending physician. Associated attestation - Leonel Valadez DO - 10/01/2018 1:28 PM CDT [facility] Patient seen and examined with the resident team (Dr. Dhaliwal) on 10/01/2018. I have reviewed the note as written and agree with the assessment and plan with the exceptions, if any, noted below. Objective: NAD, conversational, breathing even and unlabored, tunneled catheter site looks good Assessment/Plan: Severe hypertriglyceridemia: she does not have objective evidence of acute pancreatitis, but continues to have repeated hospitalizations for hypertriglyceridemia and abdominal pain. We have initiatedplasmapheresis to get the triglyceride level <500. I discussed outpatient plasmapheresis plan ofaction with Dr. Arteaga. Likely to be started on bi-monthly schedule in 2-3 weeks following discharge. More than 35 minutes were spent in the care of this patient today; more than 50% was spent in discussion of expected course of disease, discussion of prognosis, discharge planning, coordination of care and discussion of lab and test results. Leonel Valadez DO [facility] Please page the resident team via the eList. * Elmer Ortega MD - 10/01/2018 4:31 AM CDT CROSS COVER RESIDENT PROGRESS NOTE Patient with nasal dryness and congestion. RN asking for ocean spray. Ordered. Logan Ortega MD PGY-1 * Jack Arteaga MD - 09/30/2018 5:07 PM CDT CC: ??42 yo female with hypertriglyceridemia associated with abdominal pain (ASFA category III indication for apheresis). ?? HPI: ??Epigastric abdominal pain, nausea and vomiting x1 day on background of chronic abdominal pain. ? PMH: ??Hypertriglyceridemia (associated with prior episodes of pancreatitis), DM, anxiety, GERG, HLD, hypothyroidism, PCOS ?? Meds: as per EPIC. ?? Exam: ??Patient resting in bed. ??Catheter in place in R neck with clear, occlusive dressing in place. No erythema, induration or drainage observed. ?? Labs: WBC 8.1, Hgb 10.3, Hct 30.5, Plt 176, triglycerides 2,696 (pre-procedure) ?? A&P: 1. 42 yo female with hypertriglyceridemia associated with abdominal pain requires plasma exchange. 2. ??Plan plasma exchange daily until triglycerides <??500. 3. ??We will perform a 1.0 volume plasma exchange with all albumin replacement with 100% fluid balance with 2 g calcium gluconate over the procedure. 4. Notes indicate primary team would like to set up outpatient exchanges. I will work with primary team to get this set up. I would like to pursue placement of an apheresis port, which can be placedin the outpatient setting by IR. I have discussed this possibility with the patient and she is amenable. 5. For residential care of patients with recurring pancreatitis requiring frequent plasma exchange, we could discuss the utility of pursuing a powerflow port, which would save the trouble of getting a dialysis compatible catheter placed each time she presents. In patients who require frequent apheresis, there is a concern that repeated catheter placement can cause permanent structural changes to the veins that complicate repeated catheter placement. Additionally, a small case series demonstrates the utility of regular prophylactic apheresis to decrease incidence of episodes of acute pancreatitis by 67%. Chronic therapy has been reported for years. If you would like to discuss residential venousaccess and/or prophylactic apheresis, please let me know. ?? Procedure #2: ??Patient tolerated the procedure well. ??No signs or symptoms of hypocalcemia noted. ?? I have seen and examined the patient, reviewed pertinent notes and records, and remained immediately available throughout the procedure. ?? Jack Arteaga MD, PhD Gluing Machine Adjuster, therapeutic apheresis service [phone] * Daniel Whitehead RN - 09/30/2018 3:58 PM CDT Plasma exchange #2 completed today using right IJ tunneled catheter for draw and return. 1.0 volume, 100% fluid balance using 5% Albumin as replacement fluid completed. 2 grams calcium gluconate given intra procedure. Patient tolerated procedure well. Next procedure will depend on lab work results in AM. * Leonardo Dhaliwal MD - 09/30/2018 8:19 AM CDT [facility] Adult Progress Note Admit Date: 09/28/2018 Date of Note: 09/30/2018, 8:19 AM LOS: 1 day Plan Active Problems: Active Problems: Chylomicronemia syndrome Hypertriglyceridemia Depression with anxiety Type 2 diabetes mellitus without complication, with long-term current use of insulin Hyponatremia Abdominal pain History of plasmapheresis History of pancreatitis Abdominal pain: Improving Likely secondary to suspected chylomicronemia syndrome. TG trend coming down Lipase normal Transitioned off Insulin drip and on plasmapheresis day 2 today. Continuing IVF with LR @ 125 Diet advanced to clear liquid diet Pain control with [place] PRN and morphine for breakthrough. Bowel regimen adequately added Planning to try to establish outpatient plasmapheresis monthly or bimonthly to prevent readmissionsto the hospital. Hypertriglyceridemia: TG coming down, Plasmapheresis day 2 today Hx of pancreatitis 2/2 inc. TG in past Acute on chronic contributed by hyperglycemia at presentation as well Resuming CODING COMPLIANCE AUDITOR Lofibra 160 mg daily, Niacin CODING COMPLIANCE AUDITOR, Crestor and Creon Management as above Type 2 diabetes mellitus with insulin use: Clinically stable On hyperglycemia pathway Holding CODING COMPLIANCE AUDITOR Lantus NovoLog and metformin home doses D/C insulin drip. Starting Lantus 30 units with 8 units with meals and slide Hypothyroidism: Resuming CODING COMPLIANCE AUDITOR levothyroxine 200 mcg Anxiety and depression: Stable, Resuming CODING COMPLIANCE AUDITOR Celexa Resuming CODING COMPLIANCE AUDITOR Lorazepam 1 mg twice daily as needed Insomnia: Stable: Resuming CODING COMPLIANCE AUDITOR trazodone 100 mg GERD: Stable Resuming CODING COMPLIANCE AUDITOR Protonix Tobacco use: On Nicoderm patch Quality/Safety/Core Measures/Disposition Planning: DVT Prophylaxis - Enoxaparin PT/OT:yes Pettit catheter:absent Current Code Status -Full Code Plan discussed with patient, questions answered. Current Planned Disposition - Dispo: home pending clinical improvement. Subjective Previous history of present illness and review of systems have been reviewed today as documented inthe H&P on 09/28/2018; medications, labs, studies, notes, orders and consults have been reviewed.I have reviewed the notes from admission. Overnight: Clinically better overall since yesterday. Feels pain is better. Objective BP 97/60 (BP Location: Right arm, Patient Position (BP): Supine) Pulse 91 Temp 98.2 ??F (36.8 ??C) (Oral) Resp 14 Ht 5' 5 (1.651 m) Wt 89 kg (196 lb 4.8 oz) SpO2 92% BMI 32.67 kg/m?? Temp (24hrs), Av.4 ??F (36.9 ??C), Min:98.2 ??F (36.8 ??C), Max:98.6 ??F (37 ??C) Exam: Gen alert, cooperative, some distress, appears stated age Lungs clear to auscultation bilaterally Heart regular rate and rhythm, S1, S2 normal, no murmur, click, rub or gallop Abdomen soft, non-tender. Bowel sounds normal. No masses, No organomegaly Extremities extremities normal, atraumatic, no cyanosis or edema Mental Status AOX4 Data: I have reviewed all new labs and studies resulted and pertinent ones are noted below More than 45 minutes were spent in the care of this patient today; more than 50% was spent in discussion of expected course of disease, discussion of prognosis, discharge planning, coordination of care and discussion of lab and test results. Leonardo Dhaliwal MD PGY-1 Internal medicine This patient is covered by internal medicine residents ?? To reach Internal Medicine covered patients: ?? Saturday-Saturday 7 AM- 5 PM: Page via the [facility] E-List 5 PM-7 AM: Call the personal banking representative web development intern at zone phone [phone]. If no response please page the senior resident at [phone] ?? Saturday and Saturday: 7 AM-12 PM: Page via the [facility] E-List 12 PM-7 AM: Call the personal banking representative web development intern at zone phone [phone]. If no response please page the senior resident at [phone] ?? If no response to the above steps in 10 minutes, please page the attending physician. Associated attestation - Leonel Valadez DO - 09/30/2018 1:58 PM CDT [facility] Attending Note Patient seen and examined with the resident team (Dr. Dhaliwal) on 09/30/2018. I have reviewed the note as written and agree with the assessment and plan with the exceptions, if any, noted below. Objective: NAD, abdomen soft but tender to palpation across upper quadrants, breathing even and unlabored Assessment/Plan: Severe hypertriglyceridemia: she does not have objective evidence of acute pancreatitis, but continues to have repeated hospitalizations for hypertriglyceridemia and abdominal pain. We have initiatedplasmapheresis to get the triglyceride level <500. We will set up outpatient plasmapheresis to ma intain this level. More than 35 minutes were spent in the care of this patient today; more than 50% was spent in discussion of expected course of disease, discussion of prognosis, discharge planning, coordination of care and discussion of lab and test results. Leonel Valadez DO [facility] Adult Hospitalist Please page the resident team via the eList. * Jack Roberts RN - 09/30/2018 5:40 AM CDT End of Shift Note: Neuro: x4. PERRLA. Standby assist to bathroom. C/o generalized abdominal pain and occasional throatsoreness throughout shift. Medicated per jun. Resp: Pt on 1 L per NC during sleep CV: NSR to ST, sbp 90-100 GI:Pt NPO with sips with meds. No complaints of nausea. Skin: After receiving niacin, skin became red and flushed. Pt complained of burning feeling. She was medicated per jun and there is no further redness. Sleep Evaluation: Sleeping between care * Elmer Ortega MD - 09/29/2018 9:57 PM CDT CROSS COVER RESIDENT PROGRESS NOTE Paged by RN around [phone]. Patient received Niacin at 2105 and has subsequently developed redness, splotchiness with itching. Had previously had benadryl 25 mg PO at 1939. I went to bedside to evaluatepatient. No facial edema, throat swelling, difficulty breathing. Has diffuse red splotchy rash on extremities. Vitals stable. Patient states gets niacin flush, so usually takes extended release at home. Benadryl helps her itching symptoms. I ordered another one time 25 mg PO benadryl, advised patient and RN to notify me if any worsening swelling, difficulty breathing, or other changes concerning for true allergic reaction. Logan Ortega MD PGY-1 * Jack Roberts RN - 09/29/2018 9:47 PM CDT Niacin given at 2105. Pt began complaining of burning and feeling flushed. MD paged at [phone]. * Rosales Tapia RN - 09/29/2018 6:25 PM CDT Plasma exchange number 1 using the right tunneled catheter for access and return with 5% albumin asreplacement fluids for a 1.0 volume exchange. Procedure completed without issues. * Andrew Fonseca RN - 09/29/2018 4:13 PM CDT Tolerated procedure. Dressings placed over surgical sites. VS as charted. Pt transferred back to bed. Report received by Abhay OLGUIN. Pt transported back to room by bed. * Leonardo Dhaliwal MD - 09/29/2018 3:41 PM CDT [facility] Adult Progress Note Admit Date: 09/28/2018 Date of Note: 09/29/2018, 3:57 PM LOS: 0 days Plan Active Problems: Active Problems: Chylomicronemia syndrome Hypertriglyceridemia Depression with anxiety Type 2 diabetes mellitus without complication, with long-term current use of insulin Hyponatremia Abdominal pain History of plasmapheresis History of pancreatitis Abdominal pain: Recurrent abdominal pain most likely secondary to suspected chylomicronemia syndrome. Lipase normal Triglycerides very high- blood was too thick for triglycerides to be numerically identified this morning. Patient has had multiple admissions in the past secondary to increased triglyceride levels in past. Patient has clinically responded to plasmapheresis and insulin gtt. in the past Symptomatic management with insulin gtt and normal saline hydration. Pain control with morphine and [place] PRN Bowel regimen adequately added Pathology consulted for plasmapheresis. Planning to try to establish outpatient plasmapheresis monthly or bimonthly to prevent readmissionsto the hospital. Hypertriglyceridemia: Acute on chronic contributed by hyperglycemia at presentation as well Likely contributing to abdominal pain today Previously has responded to multiple therapies including insulin and plasmapheresis. Resuming [employer] COMPLIANCE AUDITOR Lofibra 160 mg daily, Niacin CODING COMPLIANCE AUDITOR, Crestor Management as above Hyponatremia: Asymptomatic, monitoring clinically. Type 2 diabetes mellitus with insulin use: Clinically stable Holding CODING COMPLIANCE AUDITOR Lantus NovoLog and metformin On insulin drip secondary to high triglyceride levels Hypothyroidism: Resuming CODING COMPLIANCE AUDITOR levothyroxine 200 mcg Anxiety and depression: Stable, Resuming CODING COMPLIANCE AUDITOR Celexa Resuming CODING COMPLIANCE AUDITOR Lorazepam 1 mg twice daily as needed Insomnia: Stable: Resuming CODING COMPLIANCE AUDITOR trazodone 100 mg GERD: Stable Resuming CODING COMPLIANCE AUDITOR Protonix Tobacco use: On Nicoderm patch Quality/Safety/Core Measures/Disposition Planning: DVT Prophylaxis - Enoxaparin PT/OT:yes Pettit catheter:absent Current Code Status -Full Code Plan discussed with patient, questions answered. Current Planned Disposition - Dispo: home pending clinical improvement. Subjective Previous history of present illness and review of systems have been reviewed today as documented inthe H&P on 09/28/2018; medications, labs, studies, notes, orders and consults have been reviewed.I have reviewed the notes from admission. Overnight Says pain is improving overall Objective BP 111/56 Pulse 86 Temp 97.4 ??F (36.3 ??C) (Oral) Resp 18 Ht 5' 5 (1.651 m) Wt 89 kg (196 lb 4.8 oz) SpO2 94% BMI 32.67 kg/m?? Temp (24hrs), Av.3 ??F (36.8 ??C), Min:97.4 ??F (36.3 ??C), Max:99.5 ??F (37.5 ??C) Exam: Gen alert, cooperative, some distress, appears stated age Lungs clear to auscultation bilaterally Heart regular rate and rhythm, S1, S2 normal, no murmur, click, rub or gallop Abdomen soft, non-tender. Bowel sounds normal. No masses, No organomegaly Extremities extremities normal, atraumatic, no cyanosis or edema Mental Status AOX4 Data: I have reviewed all new labs and studies resulted and pertinent ones are noted below More than 45 minutes were spent in the care of this patient today; more than 50% was spent in discussion of expected course of disease, discussion of prognosis, discharge planning, coordination of care and discussion of lab and test results. Leonardo Dhaliwal MD PGY-1 Internal medicine This patient is covered by internal medicine residents ?? To reach Internal Medicine covered patients: ?? Saturday-Saturday 7 AM- 5 PM: [facility] 5 PM-7 AM: Call the personal banking representative web development intern at zone phone [phone]. If no response please page the senior resident at [phone] ?? Saturday and Saturday: 7 AM-12 PM: [facility] 12 PM-7 AM: Call the personal banking representative web development intern at zone phone [phone]. If no response please page the senior resident at [phone] ?? If no response to the above steps in 10 minutes, please page the attending physician. * Puja Pagan MD - 09/29/2018 12:52 PM CDT Patient improved today. Continue insulin gtt and continue to try and get triglyceride levels. Consult pathology/blood bank for plasmapharesis. Consult SW/case work to discuss possibility of op monthly or bimonthly plasmapharesis to prevent frequent readmissions. Discussed possible role of PCSK9 inhibitors with pharmacy. Currently no role for this to significantly help with elevated TG. * Jack Roberts RN - 09/29/2018 6:55 AM CDT End of Shift Note: Pt on insulin gtt going at 5 u/hr. D5NS going at 40 ml/hr. Neuro: x4. Complaints of abdominal pain medicated per mar. PERRLA. Resp: Pt on 2 L O2 per NC. Oxygen saturation maintaining 95%. CV: NSR sbp 100-110. GI: abdomen soft and tender. Pt reports sharp cramping abdominal pain. Medicated per jun. Complaints of nausea. Given zofran : voided once. Sleep Evaluation: sleeping between care * Carolyn Boyd NP - 09/29/2018 5:55 AM CDT [facility] Two patient identifier: Casandra Doss 1975 Called for: RN report called by lab Triglyceride to thick to measured. RN report patient denies abdominal pain Last Recorded Vitals: BP 111/59 (BP Location: Left arm, Patient Position (BP): Supine) Pulse 95 Temp 98.4 ??F (36.9 ??C) (Oral) Resp 21 Ht 5' 5 (1.651 m) Wt 89 kg (196 lb 4.8 oz) SpO2 91% BMI 32.67 kg/m?? Pain Rating: Rest: 6 (09/29/18 0566) Handoff Information (if present): Documentation/Intervention/Outcome: -Triglyceride level AM -Chart reviewed. Patient on Insulin Infusion to bring down Triglycerides -D/w: Jack Addendum: 0606 RN report patient c/o abdominal pain sharp, cramping pain 10/06, Morphine given. RN also report Blood Glucose 102 will change IVF's per Insulin Pathway Intervention -If abdominal pain does not improve please follow-up -D/W: Jack Please call back any time if I can be of more assistance. Carolyn Boyd NP * Carolyn Boyd NP - 09/29/2018 3:51 AM CDT [facility] Call Two patient identifier: Casandra Doss 1975 Called for: Clarify to give One Time Lispro 5 units Last Recorded Vitals: BP 111/59 (BP Location: Left arm, Patient Position (BP): Supine) Pulse 95 Temp 98.4 ??F (36.9 ??C) (Oral) Resp 21 Ht 5' 5 (1.651 m) Wt 89 kg (196 lb 4.8 oz) SpO2 91% BMI 32.67 kg/m?? Pain Rating: Rest: 6 (09/29/18 0136) Handoff Information (if present): Documentation/Intervention/Outcome: -D/C Lispro 5 units One time only -Chart reviewed: Blood Glucose 191 Patient on Insulin Infusion not in DKA on admission Blood Glucose 372 -Jack Please call back any time if I can be of more assistance. Carolyn Boyd NP * Jack Roberts RN - 09/29/2018 3:24 AM CDT Undress and Assess performed by the following two coworkers: Laura TALAVERA and Jack OLGUINdrive worker or upon transfer to: ~~~~~~~~~~~~~~~~~~~~~~~~~~~~ Is the patient a paraplegic/quadriplegic? No Does the patient have new purple/sissy/dark red over bony prominences? No Does the patient have an ostomy? NO Is the length of stay >2 weeks? NO ~If ANY answer 'yes'- please consult Wound Care~ Patient does not have skin breakdown. Location/ Description of breakdown: Wound care consult was not initiated. Protective Dressings Applied to Sacrum and Heels (Mepilex) as per Pathway? Yes Patient arrived to this room with the following belongings/valuables:(ie:dentures, hearing aids, glasses): 2 purses Patient arrived to this room with the following medical equipment/devices (ie: insulin pump, home CPAP, walker): n/a All Jewelry removed from patient N/A Disposition of belongings/valuables: in cabinet in pt room * Carolyn Boyd NP - 09/29/2018 2:26 AM CDT [facility] [employer] ospitalist Cross Cover Call Two patient identifier: Casandra Doss 1975 Called for: Smoker requesting Nicotine patch, patient smokes one pack of cigarettes/day Last Recorded Vitals: BP 116/55 (BP Location: Left arm, Patient Position (BP): Supine) Pulse 89 Temp 98.1 ??F (36.7 ??C) (Oral) Resp 15 Ht 5' 5 (1.651 m) Wt 89 kg (196 lb 4.8 oz) SpO2 95% BMI 32.67 kg/m?? Pain Rating: Rest: 6 (09/29/18 0009) Handoff Information (if present): Documentation/Intervention/Outcome: -Nicotine Patch -Chart reviewed. Please call back any time if I can be of more assistance. Carolyn Boyd NP * Carolyn Boyd NP - 09/28/2018 11:17 PM CDT [facility] [employer] ospitalist Cross Cover Call Two patient identifier: Casandra Adamssergio 1975 Called for: New admission unseen c/o pain and itching at PIV site. Morphine given at 2200 Last Recorded Vitals: BP 126/70 (BP Location: Left arm, Patient Position (BP): Supine) Temp 98.4 ??F (36.9 ??C) (Oral) Resp 16 Ht 5' 5 (1.651 m) Wt 89.6 kg (197 lb 8 oz) SpO2 94% BMI 32.87 kg/m?? Pain Rating: Rest: 6 (09/28/18 2304) Handoff Information (if present): Documentation/Intervention/Outcome: -RN will contact Dr. Stinson [phone] Chart reviewed. -D/W: Henrietta Please call back any time if I can be of more assistance. Carolyn Boyd NP documented in this encounter H&P Notes * Mc Stinson MD - 09/29/2018 12:12 AM CDT [facility] Adult Hospitalist History and Physical Mc Stinson MD Hospitalist 09/29/2018 Patient's Primary Care Physician: Guerrero Middleton PA-C , Name: Casandra Doss Age: 42 y.o. Sex: female Chief Complaint: abd pain, headache History of Present Illness I obtained the history from patient, the chart, ED notes and I reviewed the available old records also. Casandra Doss is a 42 y.o. female Patient comes with abdominal pain, headache; Reports headache since , today developed upper abdominal pain, nausea, no vomiting; has hadloose stools; no fever; abdominal pain is severe, sharp, cramping, constant; She has h/o hypertriglyceridemia, hyperchylomicronemia, h/o pancreatitis ( lipase has been alwaysnormal , never met criteria for acute pancreatitis) She has h/o insulin drip administration and plasmapheresis for high TG level; She states she was dg. with pancreatitis in June 2016, due to hypertriglyeridemia; since then she has been admitted several times; She states she was dg. With necrotizing pancreatitis and pseudocyst at [facility]; reports GI evaluation, sounds like EUS, which was normal , in 2017; ? HOME MEDICATIONS reviewed and updated; PROBLEM LIST Active Hospital Problems Diagnosis ??? Abdominal pain History of pancreatitis -- chronic , recurrent abdominal pain -- lipase is normal, no evidence of pancreatitis -- asking for Dilaudid, will receive Morphine 4 mg iv q2h PRN ??? Hypertriglyceridemia Chylomicronemia syndrome -- she has chronically high TG levels, the highest was > 4000 in July 2018 -- today her blood was too thick , TG level could not be measured -- pt. will be fasting and she will be on insulin drip to bring down TG to measurable level, will check in AM -- no need for apheresis, there no evidence of pancreatitis ??? Hyponatremia -- calculated Na level ( hyperglycemia ) around 131-132 ??? Type 2 diabetes mellitus without complication, with long-term current use of insulin -- not in DKA, but will place on insulin drip to bring down high TG level -- hold Lantus and Novolog, Metformin ??? Depression with anxiety ??? Headache -- Ibuprofen Code status: FULL Estimated lenght of stay: > 24 hours Disposition: home? Exam Vitals: 09/28/18 1745 09/28/18 2100 09/28/18 2148 09/29/18 0004 BP: (!) 145/85 126/77 126/70 110/70 BP Location: Right arm Right arm Left arm Left arm Patient Position (BP): Sitting Supine Supine Supine Pulse: 84 Resp: 16 16 16 16 Temp: 99.5 ??F (37.5 ??C) 98.4 ??F (36.9 ??C) 97.8 ??F (36.6 ??C) TempSrc: Oral Oral Oral SpO2: 95% 97% 94% 95% Weight: 90.7 kg (200 lb) 89.6 kg (197 lb 8 oz) Height: 5' 5 (1.651 m) 5' 5 (1.651 m) GENERAL: no acute distress SKIN: no rash Head:normocephalic, atraumatic Eyes:conjunctivae,corneas clear, PERRL,EOMI Ears:external ear canals clear Throat: clear, moist mucosa NECK: supple , no JVD LUNGS: clear to auscultation bilaterally HEART: no murmur , no rubs, no gallops ABDOMEN: soft, UPPER ABDOMINAL enderness , no guarding or rebound , non- distended, no mass is palpable, normal active bowel sounds EXTREMITIES: no clubbing, cyanosis; no edema NEURO: Awake, Alert, oriented x 3, motor 5/5, no sensory deficit, normal cranial nerves, Review of Systems NEGATIVE for: GEN: No fever, no weight loss, no weight gain Skin: No rash HEENT: no sinus complaints Lungs: No cough, no sputum no shortness of breath, no wheezing Cardiac: No CP, no SOB, GI: no vomiting, no constipation : No dysuria, no frequency [...] Tape-Silicones Hives Social History Occupational History Employer: [employer] Tobacco Use ??? Smoking status: Current Every [...] HYSTERECTOMY partial due to endometriosis 2006 ??? [place] ESOPHAGOGASTRODUODENOSCOPY TRANSORAL DIAGNOSTIC N/A 03/08/2018 ESOPHAGOGASTRODUODENOSCOPY performed by Ceasar Vega MD at [facility] Family History Problem Relation Name Age of Onset ??? Diabetes Father ??? High Cholesterol Father ??? Hypertension Father ??? Stroke Mother ??? Heart Disease Mother ??? Thyroid Disease Mother ??? High Cholesterol Mother ??? Heart Disease Maternal Grandmother ??? Diabetes Maternal Grandmother ??? Diabetes Paternal Grandmother ??? Diabetes Mother documented in this encounter Consult Notes * Jessenia Denson RN - 10/02/2018 2:56 PM CDTAssociated Order(s): IP CONSULT TO INTERVENTIONAL RADIOLOGY Procedure completed by Dr. Sheffield please see dictated procedure report. documented in this encounter ED Notes * Migdalia Rubi RN - 09/28/2018 8:15 PM CDT Pt using call light to request pain meds, medicated w/ another dose morphine per MD. Patient/familyhas been informed about benefits and any potential clinically significant side effects or other concerns regarding the administration of the drug they have just been given. * Jeane Finley RN - 09/28/2018 7:28 PM CDT Report received from CLAU Desai. Care assumed at this time. * Genoveva Tirado RN - 09/28/2018 6:59 PM CDT Patient/family has been informed about benefits and any potential clinically significant side effects or other concerns regarding the administration of the drug they have just been given. * Genoveva Tirado RN - 09/28/2018 6:31 PM CDT Pt arrives to ED with c/o epigastric pain the started today. Pt guarding abdomen. Reports CORTES, nausea, and diarrhea that started on . +photophobia. +vision changes. Denies vomiting/fever. Reports intermittent SOB. Denies CP. Hx hypercholesteremia. Per pt, sx are similar to when triglycerides are elevated. AOx4. Skin WDL. +PMS. RR even/unlabored. NAD at this time. Call button within reach. Aware POC. at bedside. * Abhay Lan MD - 09/28/2018 5:34 PM CDT HISTORY OF PRESENT ILLNESS Casadnra Doss, a 42 y.o. female presents to the ED with a Chief Complaint of Epigastric Pain Subjective 6:38 PM: Casandra Doss is a 42 y.o. female with a history of PCOS, chylomicronemia, hypertriglyceridemia, depression, anxiety, tobacco use, type 2 diabetes, pancreatitis, GERD, HLD, who presents to the Emergency Department with complaints of abdominal pain beginning today. On 09/25, patient developed a headache with photophobia, blurry vision, and lightheadedness. No improvement with Tylenol or Ibuprofen. Today, she developed epigastric pain and nausea. These symptoms are all typical of her chylomicronemia which causes hypertriglyceridemia. Patient reports these symptoms happen about 1 time per month and typically require admission with either plasma replacement therapy or an insulin drop. Patient has been compliant with her medications. Admits to tobacco use, 1 ppd. Denies EtOH. Last admission was 08/20-08/24. No plasma exchange therapy was required at that time. Physician(s): Guerrero Middleton PA-C History provided by: The patient Arrived by: Private vehicle REVIEW OF SYSTEMS Review of Systems Constitutional: Negative for chills, fatigue and fever. HENT: Negative for ear pain, facial swelling, mouth sores and sore throat. Eyes: Positive for photophobia and visual disturbance (blurry). Negative for redness. Respiratory: Negative for cough, shortness of breath, wheezing and stridor. Cardiovascular: Negative for chest pain and palpitations. Gastrointestinal: Positive for abdominal pain (epigastric) and nausea. Negative for vomiting. Genitourinary: Negative for dysuria, hematuria, urgency and vaginal discharge. Musculoskeletal: Negative for arthralgias and myalgias. Neurological: Positive for light-headedness and headaches. Negative for dizziness, weakness and numbness. Psychiatric/Behavioral: Negative for hallucinations and suicidal ideas. PAST MEDICAL HISTORY REVIEWED MEDICAL: Patient has a past medical history of Anxiety, Depression, Diabetes mellitus, DM type 2 (diabetes mellitus, type 2), Family history of diabetes mellitus (05/15/2011), Family history of early CAD (05/15/2011), GERD (gastroesophageal reflux disease), High triglycerides, History of gestational diabetes ( 05/15/2011), HLD (hyperlipidemia), Hypothyroidism, Metabolic syndrome (05/15/2011), Pancreatitis, PCOS (polycystic ovarian syndrome) (05/15/2011), and Smoker. She also has no past medical history of CRI(chronic renal insufficiency). SURGICAL: Patient has a past surgical history that includes hx hysterectomy; hx appendectomy; and pr esophagogastroduodenoscopy transoral diagnostic (N/A, 03/08/2018). FAMILY: Patient's family history includes Diabetes in [...] with anxiety; History of plasmapheresis; Mixed hyperlipidemia; and History of pancreatitis on their problem list. ALLERGIES Green pepper; Adhesive; Aspartame; and Adhesive tape-silicones HOME MEDICATIONS Patient's Home Medications Current Home Medications [id number] DR MAGUIRE) 60-12-38 CAPSULE CITALOPRAM (CELEXA) 40 MG TABLET DICYCLOMINE (BENTYL) 10 MG CAPSULE FENOFIBRATE (LOFIBRA) 160 MG ORAL TAB HYDROCODONE-ACETAMINOPHEN (NORCO) 5-325 MG TABLET INSULIN ASPART (NOVOLOG) 100 UNIT/ML INJECTION INSULIN GLARGINE (LANTUS) 100 UNIT/ML INJECTION LEVOTHYROXINE 200 MCG TABLET LORAZEPAM (ATIVAN) 1 MG TABLET METFORMIN (GLUCOPHAGE) 500 MG TABLET NIACIN (NIACOR) 500 MG TABLET OMEGA-3 FATTY ACIDS-FISH OIL 300-1,000 MG CAPSULE ONDANSETRON (ZOFRAN ODT) 4 MG TABLET, RAPID DISSOLVE PANTOPRAZOLE (PROTONIX) 40 MG TABLET, DELAYED RELEASE (E.C.) ROSUVASTATIN (CRESTOR) 20 MG TABLET SPIRONOLACTONE (ALDACTONE) 25 MG TABLET TRAZODONE (DESYREL) 100 MG TABLET Medications Modified during this Encounter Medications Discontinued during this Encounter Objective PHYSICAL EXAM INITIAL VS BP: (!) 145/85 (09/28/181744), Heart Rate: 114 bpm (09/28/181744), Resp: 16 (09/28/181744), Pulse: (not recorded), Temp: 99.5 ??F (37.5 ??C) (09/28/181744), Temp src: Oral (09/28/181744), SpO2: 95 % (09/28/181744), Height: 5' 5 (165.1 cm) (09/28/181744), Weight: 90.7 kg (200 lb) (09/28/181744), BMI (Calculated): 33.28 (09/28/181744) No LMP recorded. Patient has had a hysterectomy. Physical Exam Constitutional: She is oriented to person, place, and time. Laying in a dark room. Appears uncomfortable. HENT: Head: Normocephalic and atraumatic. Mouth/Throat: Oropharynx is clear and moist. Eyes: Pupils are equal, round, and reactive to light. Conjunctivae are normal. Photophobic Neck: Normal range of motion. Neck supple. Cardiovascular: Normal rate, regular rhythm and intact distal pulses. No murmur heard. Pulmonary/Chest: Effort normal. No stridor. She has no wheezes. Abdominal: Soft. Bowel sounds are normal. There is tenderness in the right upper quadrant, epigastric area and left upper quadrant. There is no rebound and no guarding. Musculoskeletal: Normal range of motion. She exhibits no edema or deformity. Lymphadenopathy: She has no cervical adenopathy. Neurological: She is alert and oriented to person, place, and time. She has normal strength. No cranial nerve deficit or sensory deficit. Skin: Skin is warm and dry. No rash noted. Psychiatric: She has a normal mood and affect. Judgment and thought content normal. Nursing note and vitals reviewed. DIAGNOSTICS LAB: CBC WITH DIFFERENTIAL - Abnormal Result Value WBC 11.4 (*) RBC 3.98 HEMOGLOBIN 11.0 (*) HEMATOCRIT 29.7 (*) MCV 86.9 MCH 27.6 MCHC 37.0 (*) RDW 14.6 (*) RDW-STDEV 46.6 PLATELETS 310 MPV 9.4 COMPREHENSIVE METABOLIC PANEL - Abnormal SODIUM 126 (*) POTASSIUM 3.6 CHLORIDE 90 (*) CO2 21 (*) CALCIUM 8.9 BUN 9 CREATININE 0.49 (*) GLUCOSE 372 (*) TOTAL PROTEIN 6.6 (*) ALBUMIN 4.0 BILIRUBIN TOTAL <0.2 (*) ALKALINE PHOSPHATASE 104 AST ALT GFR >60 GFR, >60 ANION GAP 15 URINALYSIS WITH REFLEX MICROSCOPIC - Abnormal COLOR UA Colorless (*) CLARITY UA Clear SPECIFIC GRAVITY UA 1.028 PH UA 6.0 LEUKOCYTE ESTERASE UA Negative NITRITE UA Negative PROTEIN UA Negative GLUCOSE UA 3+ (*) KETONES UA Trace (*) UROBILINOGEN UA Normal BILIRUBIN UA Negative BLOOD UA 1+ (*) WBC UA 0-2 RBC UA 0-2 BACTERIA UA 1+ (*) EPITHELIAL CELLS, URINE 6-10 (*) MANUAL DIFFERENTIAL - Abnormal SEGMENTED NEUTROPHILS 72 BANDS RELATIVE 1 LYMPHOCYTES RELATIVE 21 ATYPICAL LYMPHOCYTES RELATIVE 2 MONOCYTES RELATIVE 4 EOSINOPHILS RELATIVE 1 NEUTROPHILS ABSOLUTE COUNT 8.29 (*) LYMPHOCYTES ABSOLUTE 2.38 MONOCYTES ABSOLUTE 0.41 EOSINOPHILS ABSOLUTE 0.10 TOTAL CELLS COUNTED IN DIFF 110 RBC MORPHOLOGY Normal PLATELET EST. Consistent w Count LIPASE - Normal LIPASE 51 LIPID PANEL TROPONIN BASELINE, 5TH GEN RADIOLOGY: No orders to display EKG: As interpreted by me: sinus tachycardia, rate 103. No arrhythmia, normal axis, normal intervals, no ST-T wave or Q waves suggestive of ischemia. Non- specific septal T wave flattening. PROCEDURES Procedures MEDICAL DECISION MAKING AND PLAN OF CARE --Upon initial evaluation, discussed with patient the plan for Zofran, morphine, and fluids. We will also run labs. She will be admitted because the labs will take several hours and patient may require further management. She understands and agrees with the plan. 8:13 PM: Discussed with Dr. Silveira ([facility] Hospitalist) who will admit to Medical floor. ED provider and ED nurse verbally discussed patient plan of care at this time. [facility] Summary Statement: This is a 42-year-old female with history of hypertriglyceridemia, pancreatitis, type 2 diabetes, reflux, coronary artery disease, who presents to the emergency department with headache, upper abdominal pain, and lightheadedness. Similar symptoms have happened in the past when she has required plasmapheresis for her hypertriglyceridemia. Patient's labs are not able to be run secondary to her hypertriglyceridemia, and the patient will be admitted to the hospital. We will keep her n.p.o., controlher pain, give her IV fluids. She will be evaluated by endocrinology in the morning. She is chest pain-free at this time, low concern for ACS. She was mildly tachycardic, this improved with IV fluids. May have had a component of pain as well as dehydration. Received 2 doses of morphine as well as Zofran. Her nausea has improved. I do not suspect acute abdomen. She will be maintained on maintenance fluids once admitted. I have reviewed previous: notes and labs I have reviewed current: labs and ECG I have reviewed nursing notes related to past medical history, social history, and review of systems and agree, unless otherwise noted. Consults: hospitalist Medications Administered During the ED Stay from 09/28/2018 1734 to 09/28/2018 2138 Date/Time Order Dose Route Action 09/28/2018 185 morphine 4 mg/mL injection 4 mg 4 mg IV Given 09/28/20181855 ondansetron (ZOFRAN) 4 mg/2 mL injection 4 mg 4 mg IV Given 09/28/20182001 sodium chloride 0.9% bolus solution 1,000 mL 0 mL IV Stopped 09/28/20181853 sodium chloride 0.9% bolus solution 1,000 mL 1,000 mL IV New Bag 09/28/20182012 morphine 4 mg/mL injection 4 mg 4 mg IV Given 09/28/20182029 sodium chloride 0.9% infusion IV Started by Another Clinician . 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 See after visit summary for patient education on discharged patients. ED Disposition ED Disposition Condition User Date/Time Comment Admit Abhay Salgado MD [place] Sep 28, 2018 8:12 PM ATTESTATION STATEMENTS This note has been prepared by Gloria Gomez acting as a scribe for Dr. Abhay Lan on 09/28/2018 at 9:08 PM. The scribe's documentation has been prepared under my direction and personally reviewed by me, Dr. Abhay Lan, in its entirety on 09/28/18 at 9:38 PM. I confirm that the note above accurately reflects all work, treatment, procedures, and medical decision making performed by me. documented in this encounter Miscellaneous Notes * Care Plan - Betty Renteria RN - 10/02/2018 3:46 PM CDT Pt received discharge instructions, all questions answered. All lines removed. Tunneled cath site assessed [id number]., no signs of bleeding. Pt sent home with clothes, purse, phone, and disability benefits specialist. * Care Plan - Puja Holden LMSW - 09/30/2018 10:33 AM CDT BURAK spoke with Carolina at [facility] to inquire about OP plasmapheresis. Carolina confirmed that they are able to accommodate and can schedule appointments Saturday through Saturday. Per Carolina, Gluing Machine Adjuster will need to contact attending to discuss Logistics. Attending phone number provided ([phone]). Carolina will call back to confirm OP plasmapheresis has been set up. LOBO Reyes, DACIA [phone] Day 1 - Current ([facility] [facility]: Adult and Obstetrics) Patient, family, or healthcare designee is participating in individual care plan process Outcome: Met Problem: Discharge Planning Goal: Identify discharge needs upon admission and through discharge Description Outcome: Progressing * Care Plan - Puja Holden LMSW - 09/29/2018 3:01 PM CDT Initial Discharge Planning Assessment completed. Introductory Care Management letter given. Care Management visited with patient, and discussed Care Management role and discharge planning. Confirmed PHI# with pt/family member prior to conversation. Prior to admission, patient's functional level independent. Prior to admission, patient resided with and son in 2 story duplex with 1 step to entry. Prior to admission, patient received assistance with nothing, and had no services in home. Primary caregiver identified as spouse. Patient does want caregiver involved in discharge planning. Durable medical equipment at home includes none. Patient has had a stay at an acute care hospital in the last 30 days. If patient will go to SNF at [place], patient does not need a PASARR screening to be started (ie, prior psych admission or intensive services, MR/DD diagnosis prior to the age of 22) Readmission Risk (patient becomes high risk with a score of 8 or greater) 5 Total Score 5 Prior Hospitalizations Primary Emergency Contact: José Miguel Doss PCP verified as Guerrero Middleton PA-C. Patient's insurance verified as Payor: [employer] / Plan: ALL SAVERS CHOICE / Product Type: Commercial / The patient's preferred pharmacy is [facility] [address] [place] [address] [facility] Discussed discharge goals and possible discharge needs including home with spouse. SW received consult regarding possibility of setting up OP plasmapheresis. SW spoke with Wen at [facility]- they do not offer OP plasmapheresis services. SW called [facility] as patient [place]. BURAK spoke with Ramakrishna who informed SW that they do not offer OP plasmapheresis either. SW called [facility] which is associated with [facility]. SW spoke with Janie. Per Janie, they do offer OP plasmapheresis services, however, patient has to be referred by a [facility] oncologist. It is not likely patient can be set up with OP plasmapheresis servicesat this time. Information above text paged to MD. Care Management contact information provided. Care Management will continue to follow and assist asneeded. LOBO Reyes, DACIA [phone] Day 1 - Current ([facility]: Adult and Obstetrics) Patient, family, or healthcare designee is participating in individual care plan process Outcome: Met Problem: Discharge Planning Goal: Identify discharge needs upon admission and through discharge Description Outcome: Progressing * Care Plan - Henrietta Cantu GN - 09/29/2018 1:28 AM CDT A&Ox4. Complained of epigastric pain, morphine given x2. Gave zofran x1 for complaints of nausea. Room air. Standby assist to bathroom. Transferred to TCU to receive insulin drip. * Treatment Plan - Henrietta Cantu GN - 09/28/2018 11:00 PM CDT Undress and Assess performed by: Henrietta RN & Lisa PCT Admission or upon transfer to: [place] [id number] ~~~~~~~~~~~~~~~~~~~~~~~~~~~~ Is the patient a paraplegic/quadriplegic? Does the patient have new purple/sissy/dark red over bony prominences? Does the patient have an ostomy? Is the length of stay >2 weeks? If yes, please consult~~~~~ Patient does not have skin breakdown. Wound care consult was not initiated. Location/ Description of breakdown: Apply Protective Dressings to Sacrum and Heels (Mepilex) as per Path[facility] Patient arrived to this room with the following belongings/valuables: Two personal bags of belongings All Jewelry removed from patient No Disposition of belongings/valuables: Left bedside with pt documented in this encounter Plan of Treatment Upcoming Encounters Date Type Department Care Team (Late st Contact Info) Description 09/14/2024 3:00 PM CDT Office Visit [facility] Heart and Vascular - [facility] [id number] [place] [address] Marlys Mayer MD [address] [place] [address] documented as of this encounter Procedures Procedure Name Priority Date/Time Associated Diagnosis Comments IR VENOUS ACCESS Routine 10/02/2018 2:42 PM CDT POC GLUCOSE Routine 10/02/2018 1:01 PM CDT POC GLUCOSE Routine 10/02/2018 10:07 AM CDT CBC WITH DIFFERENTIAL Routine 10/02/2018 5:00 AM CDT Chylomicronemia syndrome Abdominal pain, unspecified abdominal location Other specified diabetes mellitus with hyperglycemia, unspecified whether residential insulin use Hypertriglyceridemia Depression with anxiety Type 2 diabetes mellitus without complication, with long-term current use of insulin Hyponatremia Epigastric pain History of plasmapheresis History of pancreatitis Metabolic syndrome History of gestational diabetes Family history of diabetes mellitus Family history of early CAD PCOS (polycystic ovarian syndrome) Hypothyroidism, unspecified type Nausea vomiting and diarrhea Tobacco use Gastroesophageal reflux disease, esophagitis presence not specified Mixed hyperlipidemia TRIGLYCERIDE Routine 10/02/2018 5:00 AM CDT BASIC METABOLIC PANEL Routine 10/02/2018 5:00 AM CDT POC GLUCOSE Routine 10/01/2018 9:04 PM CDT POC GLUCOSE Routine 10/01/2018 4:00 PM CDT POC GLUCOSE Routine 10/01/2018 9:01 AM CDT CBC WITH DIFFERENTIAL Routine 10/01/2018 6:04 AM CDT Chylomicronemia syndrome Abdominal pain, unspecified abdominal location Other specified diabetes mellitus with hyperglycemia, unspecified whether medical terminologist insulin use Hypertriglyceridemia Depression with anxiety Type 2 diabetes mellitus without complication, with long-term current use of insulin Hyponatremia Epigastric pain History of plasmapheresis History of pancreatitis Metabolic syndrome History of gestational diabetes Family history of diabetes mellitus Family history of early CAD PCOS (polycystic ovarian syndrome) Hypothyroidism, unspecified type Nausea vomiting and diarrhea Tobacco use Gastroesophageal reflux disease, esophagitis presence not specified Mixed hyperlipidemia PROTIME-INR Routine 10/01/2018 4:36 AM CDT Chylomicronemia syndrome Abdominal pain, unspecified abdominal location Other specified diabetes mellitus with hyperglycemia, unspecified whether medical terminologist insulin use Hypertriglyceridemia Depression with anxiety Type 2 diabetes mellitus without complication, with long-term current use of insulin Hyponatremia Epigastric pain History of plasmapheresis History of pancreatitis Metabolic syndrome History of gestational diabetes Family history of diabetes mellitus Family history of early CAD PCOS (polycystic ovarian syndrome) Hypothyroidism, unspecified type Nausea vomiting and diarrhea Tobacco use Gastroesophageal reflux disease, esophagitis presence not specified Mixed hyperlipidemia TRIGLYCERIDE Routine 10/01/2018 4:36 AM CDT BASIC METABOLIC PANEL Routine 10/01/2018 4:36 AM CDT POC GLUCOSE Routine 09/30/2018 8:59 PM CDT POC GLUCOSE Routine 09/30/2018 6:02 PM CDT POC GLUCOSE Routine 09/30/2018 2:09 PM CDT POC GLUCOSE Routine 09/30/2018 8:11 AM CDT POC GLUCOSE Routine 09/30/2018 7:02 AM CDT POC GLUCOSE Routine 09/30/2018 6:07 AM CDT POC GLUCOSE Routine 09/30/2018 5:15 AM CDT DIFFERENTIAL, MANUAL Routine 09/30/2018 5:10 AM CDT Chylomicronemia syndrome Abdominal pain, unspecified abdominal location Other specified diabetes mellitus with hyperglycemia, unspecified whether residential insulin use Hypertriglyceridemia Depression with anxiety Type 2 diabetes mellitus without complication, with long-term current use of insulin Hyponatremia Epigastric pain History of plasmapheresis History of pancreatitis Metabolic syndrome History of gestational diabetes Family history of diabetes mellitus Family history of early CAD PCOS (polycystic ovarian syndrome) Hypothyroidism, unspecified type Nausea vomiting and diarrhea Tobacco use Gastroesophageal reflux disease, esophagitis presence not specified Mixed hyperlipidemia CBC WITH DIFFERENTIAL Routine 09/30/2018 5:10 AM CDT Chylomicronemia syndrome Abdominal pain, unspecified abdominal location Other specified diabetes mellitus with hyperglycemia, unspecified whether medical terminologist insulin use Hypertriglyceridemia Depression with anxiety Type 2 diabetes mellitus without complication, with long-term current use of insulin Hyponatremia Epigastric pain History of plasmapheresis History of pancreatitis Metabolic syndrome History of gestational diabetes Family history of diabetes mellitus Family history of early CAD PCOS (polycystic ovarian syndrome) Hypothyroidism, unspecified type Nausea vomiting and diarrhea Tobacco use Gastroesophageal reflux disease, esophagitis presence not specified Mixed hyperlipidemia PROTIME-INR Routine 09/30/2018 5:10 AM CDT Chylomicronemia syndrome Abdominal pain, unspecified abdominal location Other specified diabetes mellitus with hyperglycemia, unspecified whether medical terminologist insulin use Hypertriglyceridemia Depression with anxiety Type 2 diabetes mellitus without complication, with long-term current use of insulin Hyponatremia Epigastric pain History of plasmapheresis History of pancreatitis Metabolic syndrome History of gestational diabetes Family history of diabetes mellitus Family history of early CAD PCOS (polycystic ovarian syndrome) Hypothyroidism, unspecified type Nausea vomiting and diarrhea Tobacco use Gastroesophageal reflux disease, esophagitis presence not specified Mixed hyperlipidemia TRIGLYCERIDE Routine 09/30/2018 5:10 AM CDT GLUCOSE LEVEL Routine 09/30/2018 5:10 AM CDT POC GLUCOSE Routine 09/30/2018 4:23 AM CDT POC GLUCOSE Routine 09/30/2018 3:09 AM CDT POC GLUCOSE Routine 09/30/2018 2:07 AM CDT POC GLUCOSE Routine 09/30/2018 1:17 AM CDT POC GLUCOSE Routine 09/30/2018 12:07 AM CDT POC GLUCOSE Routine 09/29/2018 11:11 PM CDT POC GLUCOSE Routine 09/29/2018 10:04 PM CDT POC GLUCOSE Routine 09/29/2018 9:15 PM CDT POC GLUCOSE Routine 09/29/2018 7:48 PM CDT POC GLUCOSE Routine 09/29/2018 7:15 PM CDT POC GLUCOSE Routine 09/29/2018 6:09 PM CDT POC GLUCOSE Routine 09/29/2018 4:39 PM CDT IR VENOUS ACCESS Routine 09/29/2018 4:15 PM CDT POC GLUCOSE Routine 09/29/2018 2:04 PM CDT POC GLUCOSE Routine 09/29/2018 1:08 PM CDT POC GLUCOSE Routine 09/29/2018 12:12 PM CDT TRIGLYCERIDE Stat 09/29/2018 11:26 AM CDT GLUCOSE LEVEL Routine 09/29/2018 11:26 AM CDT POC GLUCOSE Routine 09/29/2018 10:15 AM CDT POC GLUCOSE Routine 09/29/2018 8:58 AM CDT POC GLUCOSE Routine 09/29/2018 8:00 AM CDT POC GLUCOSE Routine 09/29/2018 7:03 AM CDT POC GLUCOSE Routine 09/29/2018 5:59 AM CDT POC GLUCOSE Routine 09/29/2018 4:53 AM CDT DIFFERENTIAL, MANUAL Routine 09/29/2018 4:10 AM CDT CBC WITH DIFFERENTIAL Routine 09/29/2018 4:10 AM CDT COMPREHENSIVE METABOLIC PANEL Routine 09/29/2018 4:10 AM CDT POC GLUCOSE Routine 09/29/2018 3:52 AM CDT POC GLUCOSE Routine 09/29/2018 2:59 AM CDT POC GLUCOSE Routine 09/29/2018 1:31 AM CDT POC GLUCOSE Routine 09/29/2018 12:02 AM CDT URINALYSIS W/REFLEX MICROSCOPIC Stat 09/28/2018 6:54 PM CDT DIFFERENTIAL, MANUAL Stat 09/28/2018 6:40 PM CDT CBC WITH DIFFERENTIAL Stat 09/28/2018 6:40 PM CDT LIPASE Stat 09/28/2018 6:40 PM CDT COMPREHENSIVE METABOLIC PANEL Stat 09/28/2018 6:40 PM CDT EKG 12-LEAD Stat 09/28/2018 6:00 PM CDT documented in this encounter Results * IR VENOUS ACCESS (10/02/2018 2:42 PM CDT) Anatomical Region Laterality Modality X-Ray Angiograph y 10/02/2018 2:43 PM CDT Impressions 10/02/2018 3:44 PM CDT IMPRESSION: Successful tunneled dialysis/pheresis catheter removal. DICTATION LOCATION: Location 1 - [facility] Narrative 10/02/2018 3:44 PM CDT PROCEDURE/EXAM(S): TUNNELED DIALYSIS/PHERESIS CATHETER REMOVAL TIME/DATE: 10/02/2018 2:42 PM. CLINICAL INFORMATION & INDICATION: Female of 42 years age presents for removal of tunnel dialysis/pheresis catheter as a venous port is desired for long-term access instead by the referring service and patient. PHYSICIANS: Kayla Sheffield MD. ?? SEDATION: None. ?? TECHNIQUE: The patient was identified by standard protocol and a timeout was performed at the beginning of the procedure. Maximum sterile technique was utilized for all aspects of the procedure. The tissues surrounding the catheter cuff were freed using blunt dissection. The catheter was removed in its entirety. Hemostasis was achieved with compression. At the end of the procedure, a sterile dressing was applied. The patient tolerated the procedure well. MEDICATIONS/DRUGS: None. ESTIMATED BLOOD LOSS: Less than 1 cc. ?? COMPLICATIONS: None. ?? FINDINGS: The catheter was removed in its entirety with no evidence for infection. ?? Procedure Note Kayla Sheffield MD - 10/02/2018 PROCEDURE/EXAM(S): TUNNELED DIALYSIS/PHERESIS CATHETER REMOVAL TIME/DATE: 10/02/2018 2:42 PM. CLINICAL INFORMATION & INDICATION: Female of 42 years age presents for removal of tunnel dialysis/pheresis catheter as a venous port is desired for long-term access instead by the referring service and patient. PHYSICIANS: Kayla Sheffield MD. SEDATION: None. TECHNIQUE: The patient was identified by standard protocol and a timeout was performed at the beginning of the procedure. Maximum sterile technique was utilized for all aspects of the procedure. The tissues surrounding the catheter cuff were freed using blunt dissection. The catheter was removed in its entirety. Hemostasis was achieved with compression. At the end of the procedure, a sterile dressing was applied. The patient tolerated the procedure well. MEDICATIONS/DRUGS: None. ESTIMATED BLOOD LOSS: Less than 1 cc. COMPLICATIONS: None. FINDINGS: The catheter was removed in its entirety with no evidence for infection. IMPRESSION: Successful tunneled dialysis/pheresis catheter removal. DICTATION LOCATION: Location 1 [facility] Morales Tyson MD IR ORDERABL ES * (ABNORMAL) POC GLUCOSE (10/02/2018 1:01 PM CDT) GLUCOSE POC 285(H) 74 - 99 mg/dL 10/02/2018 1:[address] [facility] [employer] J[employer] NAME POC PATRICIA Browne 10/02/2018 1:[address] [facility] Whole blood specimen (specimen) 10/02/2018 1:01 PM CDT 10/02/2018 1:13 PM CDT Leonel Valadez DO POINT OF CARE TESTIN G [facility] CLIA# [id number] [address] [place] [address] * (ABNORMAL) POC GLUCOSE (10/02/2018 10:07 AM CDT) GLUCOSE POC 160(H) 74 - 99 mg/dL 10/02/2018 10:[address] [facility] [employer] [facility] [employer] JOURNALIST NAME KRUNAL EVANS 10/02/2018 10:[address] [facility] [employer] [facility] Whole blood specimen (specimen) 10/02/2018 10:07 AM CDT 10/02/2018 10:27 AM CDT Leonel Valadez DO POINT OF CARE TESTIN G Performing Organization Address [facility] Co de Phone Number [facility] [employer] [facility]# [phone] [address] [place] [address] * (ABNORMAL) TRIGLYCERIDE (10/02/2018 5:00 AM CDT) TRIGLYCERIDE 478(H) <150 mg/dL 10/02/2018 5:[address] [facility] [employer] [facility] Blood Venipuncture / Unknown 10/02/2018 5:00 AM CDT 10/02/2018 5:[address] [facility] [employer] [facility] - 10/02/2018 5:49 AM CDT TRIGLYCERIDES ? mg/dL Normal ?< 150 Borderline High ?150 - 199 High ? 200 - 499 Very High ? >= 500 Based on AHA/NCEP Guidelines. Leonel Valadez DO CHEMISTRY ORDERABLES Performing Organization Address [facility] de Phone Number [facility] [employer] [facility]# [id number] [address] [place] [address] * (ABNORMAL) BASIC METABOLIC PANEL (10/02/2018 5:00 AM CDT) SODIUM 139 136 - 145 mmol/L 10/02/2018 5:[address] [facility] [employer] [facility] POTASSIUM 3.7 3.5 - 5.0 mmol/L 10/02/2018 5:49 AM CDT [employer] [facility] CHLORIDE 105 98 - 107 mmol/L 10/02/2018 5:49 AM [facility] [employer] [facility] CO2 24 22 - 29 mmol/L 10/02/2018 5:49 AM [facility] CALCIUM 8.6 8.6 - 10.2 mg/dL 10/02/2018 5:49 AM [facility] [employer] [facility] BUN 4(L) 6 - 20 mg/dL 10/02/2018 5:49 AM [facility] CREATININE 0.49(L) 0.51 - 0.95 mg/dL 10/02/2018 5:49 AM T [employer] [facility] GLUCOSE 167(H) 74 - 99 mg/dL 10/02/2018 5:49 AM [facility] [employer] [facility] - [facility] GFR >60 >=60 mL/min/1.7 3 sq meter 10/02/2018 5:49 AM [facility] [employer] [facility] - [facility] Comment: eGFR has not been validated for [...] GFR, >60 >=60 mL/min/1.7 3 sq meter 10/02/2018 5:49 AM T [employer] LABORATORY SERVICES - [facility] ANION GAP 10 8 - 16 mmol/L 10/02/2018 5:49 AM [facility] [employer] [facility] - . [facility] Blood Venipuncture / Unknown 10/02/2018 5:00 AM CDT 10/02/2018 5:11 AM CDT Leonel Valadez DO CHEMISTRY ORDERABLES [facility] [employer] [facility] CLIA# [id number] [address] [facility] [place] [address] * (ABNORMAL) CBC WITH DIFFERENTIAL (10/02/2018 5:00 AM CDT) [facility] WBC 7.5 4.0 - 9.8 K/uL 10/02/2018 5:25 AM CDT [facility] - . [facility] RBC 3.80(L) 3.90 - 4.90 M/uL 10/02/2018 5:25 AM CDT [facility] - . [facility] HEMOGLOBIN 11.1(L) 11.8 - 14.8 g/dL 10/02/2018 5:25 AM CDT [facility] - [facility] HEMATOCRIT 33.9(L) 35.5 - 44.0 % 10/02/2018 5:25 AM CDT [facility] - [facility] MCV 89.2 82.0 - 99.0 fL 10/02/2018 5:25 AM CDT [facility] - [facility] MCH 29.2 27.2 - 32.6 pg 10/02/2018 5:25 AM CDT [facility] - [facility] MCHC 32.7 31.5 - 35.5 g/dL 10/02/2018 5:25 AM CDT [facility] - [facility] RDW 14.6(H) 11.5 - 14.5 % 10/02/2018 5:25 AM CDT [facility] - [facility] RDW-STDEV 47.5 37.1 - 48.7 fL 10/02/2018 5:25 AM CDT [facility] - [facility] PLATELETS 159 140 - 350 K/uL 10/02/2018 5:25 AM CDT [facility] - [facility] MPV 10.1 9.3 - 12.4 fL 10/02/2018 5:25 AM CDT [facility] - . [facility] NEUTROPHILS 62 % 10/02/2018 5:25 AM CDT [facility] LYMPHOCYTES 31 % 10/02/2018 5:25 AM CDT [facility] MONOCYTES 6 % 10/02/2018 5:25 AM CDT [facility] - . [facility] EOSINOPHILS 1 % 10/02/2018 5:25 AM CDT [facility] BASOPHILS 0 % 10/02/2018 5:[address] [facility] - [facility] IMMATURE GRANULOCYTES 1 % 10/02/2018 5:[address] [facility] LABOR[facility]ORY SERVICES [facility] Comment:IG (Immature Granulo cyte) count includes Metamyelocytes, Myelocytes, and Promyelocytes NEUTROPHIL ABSOLUTE 4.69 1.90 - 7.00 K/uL 10/02/2018 5:[address] [facility]ORY [facility] LYMPHOCYTE ABSOLUTE 2.29 0.70 - 4.50 K/uL 10/02/2018 5:[address] [facility] MONOCYTE ABSOLUTE 0.41 0.10 - 1.30 K/uL 10/02/2018 5:[address] [facility]ORY [facility] - . [facility] EOSINOPHIL ABSOLUTE 0.06 0.00 - 0.70 K/uL 10/02/2018 5:[address] [facility]ORY [facility] - . [facility] BASOPHILS ABSOLUTE 0.02 0.00 - 0.20 K/uL 10/02/2018 5:[address] [facility]ORY [facility] IMMATURE GRANULOCYTES ABSOLUTE 0.05(H) 0.00 - 0.03 K/uL 10/02/2018 5:[address] [facility] Blood Venipuncture / Unknown 10/02/2018 5:00 AM CDT 10/02/2018 5:12 AM CDT Jack Arteaga MD HEMATOLOGY YONI SERRANO [facility] Organization Address City/State/ZIP Co de Phone Number [facility]# [id number] [address] [facility] [place] [address] * (ABNORMAL) POC GLUCOSE (10/01/2018 9:04 PM CDT) [facility] Signature GLUCOSE POC 212(H) 74 - 99 mg/dL 10/01/2018 9:[address] [facility] [employer] NAME POC NABEEL GOMEZ 10/01/2018 9:04 PM CDT [facility] Whole blood specimen (specimen) 10/01/2018 9:04 PM CDT 10/01/2018 9:25 PM CDT Leonel Valadez DO POINT OF CARE FLY Serrano [facility]ORY [facility] CLIA# [id number] [address] [place] [address] * (ABNORMAL) POC GLUCOSE (10/01/2018 4:00 PM CDT) GLUCOSE POC 183(H) 74 - 99 mg/dL 10/01/2018 4:[address] [facility] [employer] NAME KATIA COSME 10/01/2018 4:[address] [facility] Whole blood specimen (specimen) 10/01/2018 4:00 PM CDT 10/01/2018 4:19 PM CDT Leonel Valadez POINT OF CARE FLY Serrano Performing Organization Address [facility]/ZIP Co de Phone Number [facility] [employer] [facility] CLIA# [id number] [address] [place] [address] * (ABNORMAL) POC GLUCOSE (10/01/2018 9:01 AM CDT) GLUCOSE POC 237(H) 74 - 99 mg/dL 10/01/2018 9:[address] [facility] [employer] NAME KATIA COSME 10/01/2018 9:[address] [facility] Whole blood specimen (specimen) 10/01/2018 9:01 AM CDT 10/01/2018 12:25 PM CDT Leonel Valadez DO POINT OF CARE FLY Serrano Performing Organization Address City/[facility]/ZIP Co de Phone Number [facility] LAB[facility]ATORY [facility] CLIA# [id number] [address] [place] [address] * (ABNORMAL) CBC WITH DIFFERENTIAL (10/01/2018 6:04 AM CDT) [facility] WBC 7.2 4.0 - 9.8 K/uL 10/01/2018 6:38 AM CDT [facility] - [facility] RBC 3.68(L) 3.90 - 4.90 M/uL 10/01/2018 6:38 AM CDT [facility] - [facility] HEMOGLOBIN 10.9(L) 11.8 - 14.8 g/dL 10/01/2018 6:38 AM CDT [facility] - [facility] HEMATOCRIT 32.6(L) 35.5 - 44.0 % 10/01/2018 6:38 AM CDT [facility] - [facility] MCV 88.6 82.0 - 99.0 fL 10/01/2018 6:38 AM CDT [facility] - [facility] MCH 29.6 27.2 - 32.6 pg 10/01/2018 6:38 AM CDT [facility] - [facility] MCHC 33.4 31.5 - 35.5 g/dL 10/01/2018 6:38 AM CDT [facility] - [facility] RDW 14.6(H) 11.5 - 14.5 % 10/01/2018 6:38 AM CDT [facility] - [facility] RDW-STDEV 47.5 37.1 - 48.7 fL 10/01/2018 6:38 AM CDT [employer] LABORATORY SERVICES - [facility] PLATELETS 176 140 - 350 K/uL 10/01/2018 6:38 AM CDT [facility] - [facility] MPV 9.9 9.3 - 12.4 fL 10/01/2018 6:38 AM CDT [employer] LABORATORY SERVICES - . [facility] NEUTROPHILS 69 % 10/01/2018 6:38 AM CDT [facility] - . [facility] LYMPHOCYTES 24 % 10/01/2018 6:38 AM CDT [facility] - . [facility] MONOCYTES 6 % 10/01/2018 6:38 AM CDT [facility] - . [facility] EOSINOPHILS 1 % 10/01/2018 6:38 AM CDT [employer] [facility]AT[facility] - . [facility] BASOPHILS 0 % 10/01/2018 6:38 AM CDT [employer] LABORATORY SERVICES - [facility] IMMATURE GRANULOCYTES 0 % 10/01/2018 6:[address] [facility]ORY SERVICES - . [facility] NEUTROPHIL ABSOLUTE 4.92 1.90 - 7.00 K/uL 10/01/2018 6:[address] [facility] - . [facility] LYMPHOCYTE ABSOLUTE 1.72 0.70 - 4.50 K/uL 10/01/2018 6:[address] [facility] - . [facility] MONOCYTE ABSOLUTE 0.41 0.10 - 1.30 K/uL 10/01/2018 6:[address] [facility] EOSINOPHIL ABSOLUTE 0.05 0.00 - 0.70 K/uL 10/01/2018 6:[address] [facility] BASOPHILS ABSOLUTE 0.02 0.00 - 0.20 K/uL 10/01/2018 6:[address] [facility]ORY SERVICES - . [facility] IMMATURE GRANULOCYTES ABSOLUTE 0.03 0.00 - 0.03 K/uL 10/01/2018 6:[address] [facility] LAB[facility]ATORY SERVICES - [facility] Blood Venipuncture / Unknown 10/01/2018 6:04 AM CDT 10/01/2018 6:10 AM CDT Jack Arteaga MD HEMATOLOGY [place] [facility] Organization Address City/State/[facility] Co de Phone Number [facility]# [id number] [address] [place] [address] * (ABNORMAL) TRIGLYCERIDE (10/01/2018 4:36 AM CDT) TRIGLYCERIDE 1,209(H) <150 mg/dL 10/01/2018 5:[address] [facility] LABORATORY SERVICES [facility] Blood Venipuncture / Unknown 10/01/2018 4:36 AM CDT 10/01/2018 4:[address] [facility] LAB[facility]ATORY SERVICES [facility] - 10/01/2018 5:37 AM CDT TRIGLYCERIDES ? mg/dL Normal ?< 150 Borderline High ?150 - 199 High ? 200 - 499 Very High ? >= 500 Based on AHA/NCEP Guidelines. Leonel Valadez DO CHEMISTRY ORDERABLES [facility] CLIA# [id number] [address] [facility] [place] [address] * (ABNORMAL) BASIC METABOLIC PANEL (10/01/2018 4:36 AM CDT) SODIUM 137 136 - 145 mmol/L 10/01/2018 5:37 AM CDT [employer] LABORATORY SERVICES - [facility] POTASSIUM 3.9 3.5 - 5.0 mmol/L 10/01/2018 5:37 AM [facility] CHLORIDE 103 98 - 107 mmol/L 10/01/2018 5:37 AM T [employer] SERVICES - [facility] CO2 22 22 - 29 mmol/L 10/01/2018 5:37 AM [facility] [employer] SERVICES - [facility] CALCIUM 8.8 8.6 - 10.2 mg/dL 10/01/2018 5:37 AM T [facility] - [facility] BUN 2(L) 6 - 20 mg/dL 10/01/2018 5:37 AM [facility] [employer] SERVICES - [facility] CREATININE 0.47(L) 0.51 - 0.95 mg/dL 10/01/2018 5:37 AM [facility] [employer] - [facility] GLUCOSE 210(H) 74 - 99 mg/dL 10/01/2018 5:37 AM [facility] [employer] SERVICES - [facility] GFR >60 >=60 mL/min/1.7 3 sq meter 10/01/2018 5:37 AM [facility] [employer] LABORATORY SERVICES [facility] Comment: eGFR [...] GFR, >60 >=60 mL/min/1.7 3 sq meter 10/01/2018 5:[address] [facility] LAB[facility]ORY [facility] ANION GAP 12 8 - 16 mmol/L 10/01/2018 5:37 AM CDT [facility] Blood Venipuncture / Unknown 10/01/2018 4:36 AM CDT 10/01/2018 4:39 AM CDT Leonel Valadez DO CHEMISTRY ORDERABLES [facility] CLIA# [id number] [address] [place] [address] * PROTIME-INR (10/01/2018 4:36 AM CDT) PROTIME 13.5 12.7 - 15.1 Seconds 10/01/2018 4:58 AM CDT [facility] INR 1.1 0.9 - 1.1 10/01/2018 4:58 AM CDT [facility] Blood Venipuncture / Unknown 10/01/2018 4:36 AM CDT 10/01/2018 4:[address] [facility] LAB[facility] - 10/01/2018 4:58 AM CDT INR Therapeutic Range: Adult: ?? [...] days) therapeutic ranges have not been established. Jack Arteaga MD HEMATOLOGY YONI SERRANO [facility] LAB[facility]ORY [facility] CLIA# [id number] [address] [place] [address] * (ABNORMAL) POC GLUCOSE (09/30/2018 8:59 PM CDT) GLUCOSE POC 278(H) 74 - 99 mg/dL 09/30/2018 8:[address] [facility] LABORATORY SERVICES [facility] [employer] J[employer] NAME POC JACK ROBERTS 09/30/2018 8:[address] [facility] LAB[facility]ATORY SERVICES [facility] Whole blood specimen (specimen) 09/30/2018 8:59 PM CDT 09/30/2018 9:16 PM CDT Leonel Valadez DO POINT OF CARE TESTJERONIMO Serrano Performing Organization Address [facility]/ZIP Co de Phone Number [facility] CLIA# [id number] [address] [place] [address] * (ABNORMAL) POC GLUCOSE (09/30/2018 6:02 PM CDT) GLUCOSE POC 170(H) 74 - 99 mg/dL 09/30/2018 6:[address] [facility] LABORATORY SERVICES [facility] [employer] J[employer] NAME POC DAREK RAMSEY 09/30/2018 6:[address] [facility] LABORATORY SERVICES [facility] Whole blood specimen (specimen) 09/30/2018 6:02 PM CDT 09/30/2018 6:14 PM CDT Leonel Valadez DO POINT OF CARE TESTJERONIMO Serrano Performing Organization Address City/[facility]/ZIP Co de Phone Number [facility] LABORATORY SERVICES [facility] CLIA# [id number] [address] [place] [address] * (ABNORMAL) POC GLUCOSE (09/30/2018 2:09 PM CDT) GLUCOSE POC 169(H) 74 - 99 mg/dL 09/30/2018 2:[address] [facility] [employer] NAME POC ROSA MATTHEWS 09/30/2018 2:[address] [facility] LABORATORY SERVICES [facility] Whole blood specimen (specimen) 09/30/2018 2:09 PM CDT 09/30/2018 2:23 PM CDT Leonel Valadez DO POINT OF CARE TESTJERONIMO Serrano Performing Organization Address [facility]/ZIP Co de Phone Number [facility] CLIA# [id number] [address] [place] [address] * (ABNORMAL) POC GLUCOSE (09/30/2018 8:11 AM CDT) GLUCOSE POC 111(H) 74 - 99 mg/dL 09/30/2018 8:[address] [facility] [employer] J[employer] NAME POC PATRICIA Browne 09/30/2018 8:[address] [facility] Whole blood specimen (specimen) 09/30/2018 8:11 AM CDT 09/30/2018 8:23 AM CDT Leonel Valadez DO POINT OF CARE TESTJERONIMO G Performing Organization Address City/[facility]/ZIP Co de Phone Number [facility] CLNV# [id number] [address] [place] [address] * (ABNORMAL) POC GLUCOSE (09/30/2018 7:02 AM CDT) GLUCOSE POC 115(H) 74 - 99 mg/dL 09/30/2018 7:[address] [facility] [employer] NAME POC PATRICIA Browne 09/30/2018 7:[address] [facility] Whole blood specimen (specimen) 09/30/2018 7:02 AM CDT 09/30/2018 7:14 AM CDT Puja Paagn MD POINT OF CARE TESTIN Maggie Performing Organization Address [facility]/ZIP Co de Phone Number [facility] [employer] [facility] CLIA# [id number] [address] [place] [address] * (ABNORMAL) POC GLUCOSE (09/30/2018 6:07 AM CDT) GLUCOSE POC 113(H) 74 - 99 mg/dL 09/30/2018 6:07 AM CDT [employer] LABORATORY SERVICES [facility] COMMENT, GLU POC Notified RN/MD 09/30/2018 6:07 AM CDT [employer] LABORATORY SERVICES [facility] [employer] J[employer] NAME POC ELIGIO MARTIN 09/30/2018 6:07 AM CDT [employer] LABORATORY SERVICES [facility] Whole blood specimen (specimen) 09/30/2018 6:07 AM CDT 09/30/2018 6:19 AM CDT Puja Pagan MD POINT OF CARE TESTJERONIMO Maggie Performing Organization Address [facility] de Phone Number [facility] [employer] [facility] CLIA# [id number] [address] [place] [address] * (ABNORMAL) POC GLUCOSE (09/30/2018 5:15 AM CDT) GLUCOSE POC 113(H) 74 - 99 mg/dL 09/30/2018 5:15 AM CDT [employer] LABORATORY SERVICES [facility] [employer]INE JOURNALIST NAME POC JACK ROBERTS 09/30/2018 5:15 AM CDT [employer] LABORATORY SERVICES [facility] Whole blood specimen (specimen) 09/30/2018 5:15 AM CDT 09/30/2018 5:28 AM CDT Puja Pagan MD POINT OF CARE TESTIN Maggie [employer] SERVICES - [facility] CLIA# [id number] [address] [place] [address] * MANUAL DIFFERENTIAL (09/30/2018 5:10 AM CDT) SEGMENTED NEUTROPHILS 75 % 09/30/2018 7:30 AM CDT [employer] LAB[facility]ATORY SERVICES [facility] BANDS RELATIVE 2 0 - 5 % 09/30/2018 7:30 AM CDT [employer] [facility]ORY [facility] LYMPHOCYTES RELATIVE 16 % 09/30/2018 7:30 AM CDT [employer] [facility] ATYPICAL LYMPHOCYTES RELATIVE 2 0 - 5 % 09/30/2018 7:30 AM CDT [employer] [facility] MONOCYTES RELATIVE 4 % 09/30/2018 7:30 AM CDT [employer] [facility]ATORY SERVICES [facility] BASOPHILS RELATIVE 1 % 09/30/2018 7:30 AM T [employer] [facility]ATORY SERVICES [facility] NEUTROPHILS ABSOLUTE COUNT 6.24 1.90 - 7.00 K/uL 09/30/2018 7:30 AM CDT [employer] [facility]ATORY SERVICES - [facility] LYMPHOCYTES ABSOLUTE 1.30 0.70 - 4.50 K/uL 09/30/2018 7:30 AM CDT [employer] [facility]ATORY SERVICES [facility] MONOCYTES ABSOLUTE 0.32 0.10 - 1.30 K/uL 09/30/2018 7:30 AM CDT [employer] [facility]ATORY SERVICES [facility] BASOPHILS ABSOLUTE 0.08 0.00 - 0.20 K/uL 09/30/2018 7:30 AM T [employer] [facility] TOTAL CELLS COUNTED IN DIFF 100 09/30/2018 7:30 AM T [employer] [facility] RBC MORPHOLOGY abnormal 09/30/2018 7:30 AM CDT [employer] [facility] PLATELET EST. Consistent w Count 09/30/2018 7:30 AM CDT [employer] [facility] ANISOCYTOSIS 1+ /hpf 09/30/2018 7:30 AM CDT [employer] [facility] POIKILOCYTES 1+ /hpf 09/30/2018 7:30 AM CDT [employer] [facility] POLYCHROMASIA 1+ /hpf 09/30/2018 7:30 AM T [employer] [facility]ATORY SERVICES - [facility] OVALOCYTES 1+ /hpf 09/30/2018 7:30 AM CDT [facility] LABORATORY SERVICES - [facility] Blood Venipuncture / Unknown 09/30/2018 5:10 AM CDT 09/30/2018 5:16 AM CDT Jack Arteaga MD HEMATOLOGY [employer] [facility] [employer] SERVICES [facility] CLIA# [id number] [address] [facility] [place] [address] * (ABNORMAL) CBC WITH DIFFERENTIAL (09/30/2018 5:10 AM CDT) Pathologist [facility] WBC 8.1 4.0 - 9.8 K/uL 09/30/2018 5:24 AM CDT [facility]ATORY SERVICES [facility] RBC 3.45(L) 3.90 - 4.90 M/uL 09/30/2018 5:24 AM CDT [employer] LABORATORY SERVICES [facility] HEMOGLOBIN 10.3(L) 11.8 - 14.8 g/dL 09/30/2018 5:24 AM CDT [employer] LABORATORY SERVICES [facility] Comment:Results corrected fo r elevated lipids. HEMATOCRIT 30.5(L) 35.5 - 44.0 % 09/30/2018 5:24 AM CDT [employer] LABORATORY SERVICES [facility] MCV 88.4 82.0 - 99.0 fL 09/30/2018 5:24 AM CDT [employer] LABORATORY SERVICES [facility] MCH 33.9(H) 27.2 - 32.6 pg 09/30/2018 5:24 AM CDT [employer] LABORATORY SERVICES [facility] MCHC 33.8 31.5 - 35.5 g/dL 09/30/2018 5:24 AM CDT [employer] LABORATORY SERVICES [facility] RDW 15.0(H) 11.5 - 14.5 % 09/30/2018 5:24 AM CDT [employer] LABORATORY SERVICES [facility] RDW-STDEV 48.1 37.1 - 48.7 fL 09/30/2018 5:24 AM CDT [employer] LABORATORY SERVICES - [facility] PLATELETS 176 140 - 350 K/uL 09/30/2018 5:24 AM CDT [facility] MPV 9.7 9.3 - 12.4 fL 09/30/2018 5:24 AM CDT [facility] Blood Venipuncture / Unknown 09/30/2018 5:10 AM CDT 09/30/2018 5:16 AM CDT Jack Arteaga MD [facility]EMATOLOGY [id number] [address] [facility] [place] [place] [address] * PROTIME-INR (09/30/2018 5:10 AM CDT) PROTIME 13.3 12.7 - 15.1 Seconds 09/30/2018 5:37 AM CDT [facility] INR 1.0 0.9 - 1.1 09/30/2018 5:37 AM CDT [facility] Blood Venipuncture / Unknown 09/30/2018 5:10 AM CDT 09/30/2018 5:16 AM CDT Narrative [facility] - 09/30/2018 5:37 AM CDT INR Therapeutic Range: Adult: ?? [...] days) therapeutic ranges have not been established. Jack Arteaga MD HEMATOLOGY YONI SERRANO Performing Organization Address [facility] Co de Phone Number [facility]# [id number] [address] [place] [address] * (ABNORMAL) GLUCOSE LEVEL (09/30/2018 5:10 AM CDT) GLUCOSE 122(H) 74 - 99 mg/dL 09/30/2018 5:[address] [facility] LAB[facility]ORY [facility] Blood Venipuncture / Unknown 09/30/2018 5:10 AM CDT 09/30/2018 5:16 AM CDT Mc Stinson MD CHEMISTRY ORDERABLES Performing Organization Address [facility] de Phone Number [facility] [employer] [facility]# [id number] [address] [place] [address] * (ABNORMAL) TRIGLYCERIDE (09/30/2018 5:10 AM CDT) TRIGLYCERIDE 2,696(H) <150 mg/dL 09/30/2018 6:[address] [facility] [employer] [facility] Blood Venipuncture / Unknown 09/30/2018 5:10 AM CDT 09/30/2018 5:[address] [facility] [employer] [facility] - 09/30/2018 6:06 AM CDT TRIGLYCERIDES ? mg/dL Normal ?< 150 Borderline High ?150 - 199 High ? 200 - 499 Very High ? >= 500 Based on AHA/NCEP Guidelines. Carolyn Boyd NP CHEMISTRY ORDERABL ES Performing Organization Address [facility] Co de Phone Number [facility] [employer] [facility]# [id number] [address] [place] [address] * (ABNORMAL) POC GLUCOSE (09/30/2018 4:23 AM CDT) GLUCOSE POC 133(H) 74 - 99 mg/dL 09/30/2018 4:[address] [facility] - [facility] MAG[employer]INE JOURNALIST NAME POC JACK ROBERTS 09/30/2018 4:[address] [facility] - [facility] Whole blood specimen (specimen) 09/30/2018 4:23 AM CDT 09/30/2018 4:36 AM CDT Puja Pagan MD POINT OF CARE TESTIN G [facility] CLIA# [id number] [address] [place] [address] * (ABNORMAL) POC GLUCOSE (09/30/2018 3:09 AM CDT) GLUCOSE POC 121(H) 74 - 99 mg/dL 09/30/2018 3:[address] [facility] - [facility] COMMENT, GLU POC Notified RN/MD 09/30/2018 3:[address] [facility] - [facility] [employer] JOURNALIST NAME POC ELIGIO MARTIN 09/30/2018 3:[address] [facility] Whole blood specimen (specimen) 09/30/2018 3:09 AM CDT 09/30/2018 3:27 AM CDT Puja Pagan MD POINT OF CARE TESTIN G [facility] [employer] [facility] CLIA# [id number] [address] [place] [address] * (ABNORMAL) POC GLUCOSE (09/30/2018 2:07 AM CDT) GLUCOSE POC 109(H) 74 - 99 mg/dL 09/30/2018 2:07 AM CDT [facility] MAGAZINE JOURNALIST NAME POC JACK ROBERTS 09/30/2018 2:[address] [facility] Whole blood specimen (specimen) 09/30/2018 2:07 AM CDT 09/30/2018 2:23 AM CDT Puja Pagan MD POINT OF CARE TESTIN Performing Organization Address [facility] Co de Phone Number [facility]# [id number] [address] [place] [address] * (ABNORMAL) POC GLUCOSE (09/30/2018 1:17 AM CDT) GLUCOSE POC 123(H) 74 - 99 mg/dL 09/30/2018 1:[address] [facility] COMMENT, GLU POC Notified RN/MD 09/30/2018 1:[address] [facility] MAG[employer] JOURNALIST NAME POC MARIO ELIGIO 09/30/2018 1:[address] [facility] Whole blood specimen (specimen) 09/30/2018 1:17 AM CDT 09/30/2018 1:29 AM CDT Puja Pagan MD POINT OF CARE TESTJERONIMO Serrano Performing Organization Address [facility] Co de Phone Number [facility] [employer] [facility]# [id number] [address] [place] [address] * (ABNORMAL) POC GLUCOSE (09/30/2018 12:07 AM CDT) GLUCOSE POC 128(H) 74 - 99 mg/dL 09/30/2018 12:[address] [facility] MAGAZINE JOURNALIST NAME POC JACK ROBERTS 09/30/2018 12:[address] [facility] Whole blood specimen (specimen) 09/30/2018 12:07 AM CDT 09/30/2018 12:24 AM CDT Puja Pagan MD POINT OF CARE TESTJERONIMO Maggie Performing Organization Address [facility]/ZIP Co de Phone Number [facility] CLIA# [id number] [address] [place] [address] * (ABNORMAL) POC GLUCOSE (09/29/2018 11:11 PM CDT) GLUCOSE POC 100(H) 74 - 99 mg/dL 09/29/2018 11:[address] [facility] [employer] JOURNALIST NAME POC JACK ROBERTS 09/29/2018 11:[address] [facility] Whole blood specimen (specimen) 09/29/2018 11:11 PM CDT 09/29/2018 11:30 PM CDT Puja Pagan MD POINT OF CARE TESTJERONIMO Maggie Performing Organization Address [facility]/ZIP Co de Phone Number [facility] CLIA# [id number] [address] [place] [address] * (ABNORMAL) POC GLUCOSE (09/29/2018 10:04 PM CDT) GLUCOSE POC 112(H) 74 - 99 mg/dL 09/29/2018 10:[address] [facility] COMMENT, GLU POC Notified RN/MD 09/29/2018 10:[address] [facility] - [facility] [employer] JOURNALIST NAME POC ELIGIO MARTIN 09/29/2018 10:[address] [facility] Whole blood specimen (specimen) 09/29/2018 10:04 PM CDT 09/29/2018 10:16 PM CDT Puja Pagan MD POINT OF CARE TESTIN Maggie [facility] CLIA# [id number] [address] [place] [address] * (ABNORMAL) POC GLUCOSE (09/29/2018 9:15 PM CDT) GLUCOSE POC 121(H) 74 - 99 mg/dL 09/29/2018 9:[address] [facility] COMMENT, GLU POC Notified RN/ 09/29/2018 9:[address] [facility] [employer] JOURNALIST NAME ELIGIO JOHNSON 09/29/2018 9:[address] [facility] Whole blood specimen (specimen) 09/29/2018 9:15 PM CDT 09/29/2018 9:32 PM CDT Puja Pagan MD POINT OF CARE TESTIN G Performing Organization Address [facility]/ZIP Co de Phone Number [facility] CLIA# [id number] [address] [place] [address] * (ABNORMAL) POC GLUCOSE (09/29/2018 7:48 PM CDT) GLUCOSE POC 114(H) 74 - 99 mg/dL 09/29/2018 7:[address] [facility] COMMENT, GLU POC Notified RN/ 09/29/2018 7:[address] [facility] - [facility] MAG[employer] JOURNALIST NAME ELIGIO JOHNSON 09/29/2018 7:[address] [facility] Whole blood specimen (specimen) 09/29/2018 7:48 PM CDT 09/29/2018 8:09 PM CDT Albert Silveira MD POINT OF CARE TESTIN G [facility] [employer] [facility] CLNV# [id number] [address] [place] [address] * (ABNORMAL) POC GLUCOSE (09/29/2018 7:15 PM CDT) GLUCOSE POC 119(H) 74 - 99 mg/dL 09/29/2018 7:15 PM CDT [employer] LABORATORY SERVICES - [facility] COMMENT, GLU POC Notified CLAU/ 09/29/2018 7:15 PM CDT [employer] LABORATORY SERVICES - [facility] [employer] JOURNALIST NAME ABHAY CORTES 09/29/2018 7:15 PM CDT [facility] Whole blood specimen (specimen) 09/29/2018 7:15 PM CDT 09/29/2018 7:27 PM CDT Albert Silveira MD POINT OF CARE TESTIN G Performing Organization Address [facility] Co de Phone Number [facility] CLIA# [id number] [address] [place] [address] * (ABNORMAL) POC GLUCOSE (09/29/2018 6:09 PM CDT) GLUCOSE POC 121(H) 74 - 99 mg/dL 09/29/2018 6:09 PM CDT [employer] LABORATORY SERVICES - [facility] COMMENT, GLU POC Notified BREANN 09/29/2018 6:09 PM CDT [employer] LABORATORY SERVICES - [facility] [employer] JOURNALIST NAME ABHAY CORTES 09/29/2018 6:09 PM CDT [employer] LABORATORY SERVICES [facility] Whole blood specimen (specimen) 09/29/2018 6:09 PM CDT 09/29/2018 6:21 PM CDT Albert Silveira MD POINT OF CARE TESTJERONIMO Serrano Performing Organization Address [facility] Co de Phone Number [facility] CLIA# [id number] [address] [place] [address] * (ABNORMAL) POC GLUCOSE (09/29/2018 4:39 PM CDT) GLUCOSE POC 146(H) 74 - 99 mg/dL 09/29/2018 4:39 PM CDT [employer] LABORATORY SERVICES [facility] COMMENT, GLU POC Notified BREANN 09/29/2018 4:39 PM CDT [facility] JOURNA[facility] NAME ABHAY CORTES 09/29/2018 4:39 PM [address] [facility] Whole blood specimen (specimen) 09/29/2018 4:39 PM CDT 09/29/2018 4:51 PM CDT Albert Silveira MD POINT OF CARE TESTIN G [facility] CLIA# [id number] [address] [facility] [address] [address] * IR VENOUS ACCESS (09/29/2018 4:15 PM CDT) Anatomical Region Laterality Modality X-Ray Angiograph y 09/29/2018 4:15 PM CDT Addenda Addendum by Michael Powell MD on 10/06/2018 2:33 PM CDT FLUOROSCOPY TIME: 0.5 minutes Impressions 09/30/2018 4:19 PM CDT IMPRESSION: Successful tunneled dialysis catheter placement via the right internal jugular vein. PLAN: The catheter is ready for immediate use. 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 ANESTHESIA: The procedure was performed with local anesthesia. FLUOROSCOPY: The fluoroscopy Dose: ??4 mGy / 75 cGy.cm2. SURGEON: Dr. Michael Powell MD TECHNIQUE: The risks, benefits and alternatives were discussed and informed consent was obtained. Prior to beginning the procedure, [place] Protocol was performed to confirm the patient's identity and the planned procedure. Maximum sterile barriers including cap, mask, hand hygiene, sterile gloves, sterile gown, large sterile drape and 2% chlorhexidine for cutaneous antisepsis were used. Prior to the procedure, the central veins were evaluated by ultrasound, an image recorded and placed in the patient's chart. The skin over the right internal jugular vein was sterilely prepped, draped and infiltrated with 1% buffered lidocaine. The vein was accessed with a 21 gauge needle using realtime ultrasound guidance. ??A guidewire and catheter were then passed centrally using fluoroscopic guidance. The intravascular length from the access site to the right atrium was then measured. After infiltrating the skin in the subclavicular region with 1% buffered lidocaine, a short transverse incision was made and the 23 cm tip to cuff pheresis catheter was tunneled to the internal jugular access site and inserted through a peel-away sheath. The catheter was flushed with 10U/ml ??heparin. The incision in the lower neck was closed using 3-0 Polysorb and Dermabond. ??A pursestring suture was placed around the catheter entry site using 3-0 Polysorb. A sterile dressing was applied. ESTIMATED BLOOD LOSS: < 30 cc. CONDITION: Stable. DISCHARGED TO: Inpatient care division. FINDINGS: Ultrasound image shows a patent vein in the lower neck. The final fluoroscopic image demonstrates the catheter with its tip at the proximal right atrium. ??No complications are seen. 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 ANESTHESIA: The procedure was performed with local anesthesia. FLUOROSCOPY: The fluoroscopy Dose: 4 mGy / 75 cGy.cm2. SURGEON: Dr. Michael Powell MD TECHNIQUE: The risks, benefits and alternatives were discussed and informed consent was obtained. Prior to beginning the procedure, [place] Protocol was performed to confirm the patient's identity and the planned procedure. Maximum sterile barriers including cap, mask, hand hygiene, sterile gloves, sterile gown, large sterile drape and 2% chlorhexidine for cutaneous antisepsis were used. Prior to the procedure, the central veins were evaluated by ultrasound, an image recorded and placed in the patient's chart. The skin over the right internal jugular vein was sterilely prepped, draped and infiltrated with 1% buffered lidocaine. The vein was accessed with a 21 gauge needle using realtime ultrasound guidance. A guidewire and catheter were then passed centrally using fluoroscopic guidance. The intravascular length from the access site to the right atrium was then measured. After infiltrating the skin in the subclavicular region with 1% buffered lidocaine, a short transverse incision was made and the 23 cm tip to cuff pheresis catheter was tunneled to the internal jugular access site and inserted through a peel-away sheath. The catheter was flushed with 10U/ml heparin. The incision in the lower neck was closed using 3-0 Polysorb and Dermabond. A pursestring suture was placed around the catheter entry site using 3-0 Polysorb. A sterile dressing was applied. ESTIMATED BLOOD LOSS: < 30 cc. CONDITION: Stable. DISCHARGED TO: Inpatient care division. FINDINGS: Ultrasound image shows a patent vein in the lower neck. The final fluoroscopic image demonstrates the catheter with its tip at the proximal right atrium. No complications are seen. IMPRESSION: Successful tunneled dialysis catheter placement via the right internal jugular vein. PLAN: The catheter is ready for immediate use. DICTATION LOCATION: Location 1 - [facility] Albert Silveira MD IR ORDERABLES * POC GLUCOSE (09/29/2018 2:04 PM CDT) GLUCOSE POC 90 74 - 99 mg/dL 09/29/2018 2:[address] [facility] COMMENT, GLU POC Notified BREANN 09/29/2018 2:[address] [facility] MAGAZINE JOURNALIST NAME CARLOS LAW 09/29/2018 2:[address] [facility] Whole blood specimen (specimen) 09/29/2018 2:04 PM CDT 09/29/2018 2:16 PM CDT Albert Silveira MD POINT OF CARE TESTIN G [facility] [employer] [facility]# [id number] [address] [facility] [place] [place] [place] [address] * POC GLUCOSE (09/29/2018 1:08 PM CDT) GLUCOSE POC 90 74 - 99 mg/dL 09/29/2018 1:[address] [facility] COMMENT, GLU POC Notified BREANN 09/29/2018 1:[address] [facility] SERVICES [facility] [employer] JOURNALIST NAME CARLOS LAW 09/29/2018 1:[address] [facility] Whole blood specimen (specimen) 09/29/2018 1:08 PM CDT 09/29/2018 1:21 PM CDT Albert Silveira MD POINT OF CARE TESTIN G Performing Organization Address [facility]/ZIP Co de Phone Number [facility]# [id number] [address] [place] [address] * POC GLUCOSE (09/29/2018 12:12 PM CDT) GLUCOSE POC 85 74 - 99 mg/dL 09/29/2018 12:[address] [facility] COMMENT, GLU POC Notified RN/MD 09/29/2018 12:[address] [facility] [employer] JOURNALIST NAME POC ABHAY GARCIA 09/29/2018 12:[address] [facility] Whole blood specimen (specimen) 09/29/2018 12:12 PM CDT 09/29/2018 12:24 PM CDT Albert Silveira MD POINT OF CARE TESTJERONIMO Serrano Performing Organization Address City/[facility]/ZIP Co de Phone Number [facility]# [id number] [address] [place] [address] * (ABNORMAL) TRIGLYCERIDE (09/29/2018 11:26 AM CDT) TRIGLYCERIDE >4,425(H) <150 mg/dL 09/29/2018 1:[address] [facility] Comment:Cleared of chylomicr ons. Blood Venipuncture / Unknown 09/29/2018 11:26 AM CDT 09/29/2018 11:[address] [facility] - 09/29/2018 1:10 PM CDT TRIGLYCERIDES ? mg/dL Normal ?< 150 Borderline High ?150 - 199 High ? 200 - 499 Very High ? >= 500 Based on AHA/NCEP Guidelines. Puja Pagan MD CHEMISTRY ORDERABLES Performing Organization Address City/[facility]/ZIP Co de Phone Number [facility]# [id number] [address] [place] [address] * GLUCOSE LEVEL (09/29/2018 11:26 AM CDT) GLUCOSE 87 74 - 99 mg/dL 09/29/2018 1:[address] [facility] Comment:Cleared of chylomicr ons. Blood Venipuncture / Unknown 09/29/2018 11:26 AM CDT 09/29/2018 11:34 AM CDT Mc Stinson MD CHEMISTRY ORDERABLES Performing Organization Address [facility] de Phone Number [facility]# [id number] [address] [place] [address] * POC GLUCOSE (09/29/2018 10:15 AM CDT) GLUCOSE POC 98 74 - 99 mg/dL 09/29/2018 10:[address] [facility] COMMENT, GLU POC Notified RN/MD 09/29/2018 10:[address] [facility] MAGAZINE JOURNALIST NAME POC ORALABHAY PECK 09/29/2018 10:[address] [facility] Whole blood specimen (specimen) 09/29/2018 10:15 AM CDT 09/29/2018 10:27 AM CDT Albert Silveira MD POINT OF CARE TESTIN G Performing Organization Address City/[facility] Co de Phone Number [facility] CLIA# [id number] [address] [place] [address] * POC GLUCOSE (09/29/2018 8:58 AM CDT) GLUCOSE POC 76 74 - 99 mg/dL 09/29/2018 8:[address] [facility] SERVICES [facility] MAGAZ[employer] JOURNALIST NAME CARLOS LAW 09/29/2018 8:[address] [facility] Whole blood specimen (specimen) 09/29/2018 8:58 AM CDT 09/29/2018 9:11 AM CDT Albert Silveira MD POINT OF CARE TESTIN G [facility] CLIA# [id number] [address] [place] [address] * POC GLUCOSE (09/29/2018 8:00 AM CDT) GLUCOSE POC 75 74 - 99 mg/dL 09/29/2018 8:[address] [facility] SERVICES [facility] COMMENT, GLU POC Notified RN/MD 09/29/2018 8:[address] [facility] MAGAZINE JOURNALIST NAME CARLOS LAW 09/29/2018 8:[address] [facility] SERVICES [facility] Whole blood specimen (specimen) 09/29/2018 8:00 AM CDT 09/29/2018 8:13 AM CDT Albert Silveira MD POINT OF CARE TESTIN Maggie [facility] [employer] [facility] CLIA# [id number] [address] [place] [address] * POC GLUCOSE (09/29/2018 7:03 AM CDT) GLUCOSE POC 85 74 - 99 mg/dL 09/29/2018 7:[address] [facility] SERVICES - [facility] COMMENT, GLU POC Notified RN/MD 09/29/2018 7:03 AM CDT [employer] LABORATORY SERVICES - [facility] MAG[employer] JOURNALIST NAME CARLOS LAW 09/29/2018 7:03 AM CDT [employer] LABORATORY SERVICES - [facility] Whole blood specimen (specimen) 09/29/2018 7:03 AM CDT 09/29/2018 7:15 AM CDT Albert Silveira MD POINT OF CARE TESTIN G Performing Organization Address [facility]/ZIP Co de Phone Number [facility] CLIA# [id number] [address] [place] [address] * (ABNORMAL) POC GLUCOSE (09/29/2018 5:59 AM CDT) GLUCOSE POC 102(H) 74 - 99 mg/dL 09/29/2018 5:59 AM CDT [employer] LABORATORY SERVICES - [facility] MAGAZINE JOURNALIST NAME LAURA BROWN 09/29/2018 5:59 AM CDT [employer] LABORATORY SERVICES - [facility] Whole blood specimen (specimen) 09/29/2018 5:59 AM CDT 09/29/2018 6:11 AM CDT Albert Silveira MD POINT OF CARE TESTIN G Performing Organization Address City/[facility]/ZIP Co de Phone Number [facility] SERVICES [facility] CLIA# [id number] [address] [place] [address] * (ABNORMAL) POC GLUCOSE (09/29/2018 4:53 AM CDT) GLUCOSE POC 167(H) 74 - 99 mg/dL 09/29/2018 4:53 AM CDT [employer] LABORATORY SERVICES - [facility] MAGAZINE JOURNALIST NAME LAURA BROWN 09/29/2018 4:53 AM CDT [employer] LABORATORY SERVICES - [facility] Whole blood specimen (specimen) 09/29/2018 4:53 AM CDT 09/29/2018 5:06 AM CDT Albert Silveira MD POINT OF CARE TESTIN G [facility] SERVICES - [facility] CLIA# [id number] [address] [place] [address] * MANUAL DIFFERENTIAL (09/29/2018 4:10 AM CDT) SEGMENTED NEUTROPHILS 65 % 09/29/2018 7:46 AM CDT [employer] LABORATORY SERVICES - [facility] LYMPHOCYTES RELATIVE 29 % 09/29/2018 7:46 AM CDT [employer] LABORATORY SERVICES - [facility] MONOCYTES RELATIVE 6 % 09/29/2018 7:46 AM CDT [employer] LABORATORY SERVICES - [facility] NEUTROPHILS ABSOLUTE COUNT 6.21 1.90 - 7.00 K/uL 09/29/2018 7:46 AM CDT [employer] LABORATORY SERVICES - [facility] LYMPHOCYTES ABSOLUTE 2.75 0.70 - 4.50 K/uL 09/29/2018 7:46 AM CDT [employer] LABORATORY SERVICES - [facility] MONOCYTES ABSOLUTE 0.53 0.10 - 1.30 K/uL 09/29/2018 7:46 AM CDT [employer] LABORATORY SERVICES - [facility] TOTAL CELLS COUNTED IN DIFF 107 09/29/2018 7:46 AM CDT [employer] LAB[facility]ATORY SERVICES - [facility] RBC MORPHOLOGY abnormal 09/29/2018 7:46 AM CDT [employer] LABORATORY SERVICES - [facility] PLATELET EST. Consistent w Count 09/29/2018 7:46 AM CDT [employer] LABORATORY SERVICES - [facility] ANISOCYTOSIS 1+ /hpf 09/29/2018 7:46 AM CDT [employer] LABORATORY SERVICES - [facility] MICROCYTES 1+ /hpf 09/29/2018 7:46 AM CDT [employer] [facility]ATORY SERVICES - [facility] Blood Venipuncture / Unknown 09/29/2018 4:10 AM CDT 09/29/2018 4:15 AM CDT Mc Stinson MD HEMATOLOGY ORDERABLE S COM [facility] LAB[facility]ATORY SERVICES - [facility] CLIA# [id number] [address] [place] [address] * (ABNORMAL) COMPREHENSIVE METABOLIC PANEL (09/29/2018 4:10 AM CDT) SODIUM 133(L) 136 - 145 mmol/L 09/29/2018 11:44 AM [facility] [employer] LABORATORY SERVICES - [facility] POTASSIUM 3.6 3.5 - 5.0 mmol/L 09/29/2018 11:44 AM [facility] [employer] LABORATORY SERVICES - [facility] CHLORIDE 102 98 - 107 mmol/L 09/29/2018 11:44 AM T [employer] LABORATORY SERVICES - [facility] Comment:Significant change f rom prior result, correlate clinically and redraw if necessary. CO2 22 22 - 29 mmol/L 09/29/2018 11:44 AM [facility] [employer] SERVICES - [facility] CALCIUM 7.9(L) 8.6 - 10.2 mg/dL 09/29/2018 11:44 AM [employer] [facility] - [facility] BUN 6 6 - 20 mg/dL 09/29/2018 11:44 AM [facility] CREATININE 0.40(L) 0.51 - 0.95 mg/dL 09/29/2018 11:44 AM [facility] - [facility] GLUCOSE 188(H) 74 - 99 mg/dL 09/29/2018 11:44 AM [facility] [employer] LABORATORY SERVICES [facility]. [facility] TOTAL PROTEIN 5.9(L) 6.7 - 8.6 g/dL 09/29/2018 11:44 AM [facility]. [facility] ALBUMIN 3.4(L) 3.5 - 5.2 g/dL 09/29/2018 11:44 AM [facility]. [facility] BILIRUBIN TOTAL <0.2(L) 0.3 - 1.2 mg/dL 09/29/2018 11:44 AM [employer] LABORATORY SERVICES [facility] Comment:Verified by repeat a nalysis. ALKALINE PHOSPHATASE 83 35 - 104 U/L 09/29/2018 11:44 AM [employer] LABORATORY SERVICES [facility]. [facility] AST <33 U/L 09/29/2018 11:44 AM [employer] LABORATORY SERVICES [facility] Comment:Unable to evaluate d ue to lipemia and interference on analyzer. ALT <34 U/L 09/29/2018 11:44 AM [facility] [employer] [facility] Comment:Unable to evaluate d ue to lipemia and interference on analyzer. GFR >60 >=60 mL/min/1. 73 sq meter 09/29/2018 11:44 AM [facility] [employer] [facility] Comment: eGFR has not been validated [...] GFR, >60 >=60 mL/min/1. 73 sq meter 09/29/2018 11:44 AM [facility] [employer] [facility] ANION GAP 9 8 - 16 mmol/L 09/29/2018 11:44 AM [facility] [employer] [facility] Blood Venipuncture / Unknown 09/29/2018 4:10 AM CDT 09/29/2018 4:[address] [facility] - 09/29/2018 11:44 AM CDT Grossly lipemic. Cleared of chylomicrons. Samples containing indocyanine green cause interferences on Total and/or Direct Bilirubin and must not be measured. Mc Stinson MD CHEMISTRY ORDERABLES [facility] [employer] [facility] CLIA# [id number] [address] [facility] [address] [place] [address] * (ABNORMAL) CBC WITH DIFFERENTIAL (09/29/2018 4:10 AM CDT) WBC 9.5 4.0 - 9.8 K/uL 09/29/2018 7:09 AM [facility] [employer] [facility] RBC 3.57(L) 3.90 - 4.90 M/uL 09/29/2018 7:09 AM [facility] [employer] LABORATORY SERVICES [facility] HEMOGLOBIN 9.5(L) 11.8 - 14.8 g/dL 09/29/2018 7:09 AM [facility] [employer] LABORATORY SERVICES - [facility] Comment:Results corrected fo r elevated lipids. HEMATOCRIT 32.0(L) 35.5 - 44.0 % 09/29/2018 7:09 AM [facility] LABORATORY SERVICES - [facility] MCV 89.6 82.0 - 99.0 fL 09/29/2018 7:[address] [facility] LABORATORY SERVICES - [facility] MCH 26.6(L) 27.2 - 32.6 pg 09/29/2018 7:09 AM [facility] LABORATORY SERVICES - [facility] MCHC 29.7(L) 31.5 - 35.5 g/dL 09/29/2018 7:09 AM [facility] LABORATORY [facility] RDW 14.6(H) 11.5 - 14.5 % 09/29/2018 7:09 AM [facility] [employer] [facility] RDW-STDEV 48.0 37.1 - 48.7 fL 09/29/2018 7:09 AM [facility] LABORATORY [facility] - [facility] PLATELETS 259 140 - 350 K/uL 09/29/2018 7:09 AM [facility] [employer] [facility] MPV 9.1(L) 9.3 - 12.4 fL 09/29/2018 7:09 AM [facility] LABORATORY SERVICES [facility] Blood Venipuncture / Unknown 09/29/2018 4:10 AM CDT 09/29/2018 4:15 AM CDT Mc Stinson MD HEMATOLOGY ORDERABLE S [facility] [employer] [facility] CLIA# [id number] [address] [place] [address] * (ABNORMAL) POC GLUCOSE (09/29/2018 3:52 AM CDT) GLUCOSE POC 195(H) 74 - 99 mg/dL 09/29/2018 3:[address] [facility] MAGAZINE JOURNALIST NAME POC JACK ROBERTS 09/29/2018 3:[address] [facility] Whole blood specimen (specimen) 09/29/2018 3:52 AM CDT 09/29/2018 4:04 AM CDT Albert Silveira MD POINT OF CARE TESTIN G Performing Organization Address City/[facility]/ZIP Co de Phone Number [facility] CLIA# [id number] [address] [place] [address] * (ABNORMAL) POC GLUCOSE (09/29/2018 2:59 AM CDT) GLUCOSE POC 221(H) 74 - 99 mg/dL 09/29/2018 2:59 AM CDT [facility] [place] [facility] NAME POC LAURA GARZA 09/29/2018 2:59 AM CDT [facility] Whole blood specimen (specimen) 09/29/2018 2:59 AM CDT 09/29/2018 3:17 AM CDT Albert Silveira MD POINT OF CARE TESTIN G Performing Organization Address [facility] Co de Phone Number [facility] [employer] [facility] CLIA# [id number] [address] [place] [address] * (ABNORMAL) POC GLUCOSE (09/29/2018 1:31 AM CDT) GLUCOSE POC 261(H) 74 - 99 mg/dL 09/29/2018 1:31 AM CDT [facility] MAGAZINE JOURNALIST NAME POC LAURA GARZA 09/29/2018 1:31 AM CDT [employer] LABORATORY SERVICES [facility] Whole blood specimen (specimen) 09/29/2018 1:31 AM CDT 09/29/2018 1:43 AM CDT Albert Silveira MD POINT OF CARE TESTIN G [employer] [facility] CLIA# [id number] [address] [place] [address] * (ABNORMAL) POC GLUCOSE (09/29/2018 12:02 AM CDT) GLUCOSE POC 226(H) 74 - 99 mg/dL 09/29/2018 12:02 AM CDT [employer] LABORATORY SERVICES - [facility] MAGAZINE JOURNALIST NAME POC HENRIETTA CANTU 09/29/2018 12:02 AM CDT [employer] LABORATORY SERVICES - [facility] Whole blood specimen (specimen) 09/29/2018 12:02 AM CDT 09/29/2018 12:16 AM CDT Albert Silveira MD POINT OF CARE TESTIN G [facility] [employer] [facility] CLIA# [id number] [address] [place] [address] * (ABNORMAL) URINALYSIS WITH REFLEX MICROSCOPIC (09/28/2018 6:54 PM CDT) COLOR UA Colorless(A ) Pale to Dark Yellow 09/28/2018 7:31 PM CDT [employer] LABORATORY SERVICES - [facility] CLARITY UA Clear Clear 09/28/2018 7:31 PM CDT [employer] LABORATORY SERVICES - [facility] SPECIFIC GRAVITY UA 1.028 1.003 - 1.035 09/28/2018 7:31 PM CDT [employer] LABORATORY SERVICES - [facility] PH UA 6.0 5.0 - 8.0 09/28/2018 7:31 PM CDT [employer] LABORATORY SERVICES - [facility] LEUKOCYTE ESTERASE UA Negative Negative 09/28/2018 7:31 PM CDT [employer] LABORATORY SERVICES - . [facility] NITRITE UA Negative Negative 09/28/2018 7:31 PM CDT [employer] LABORATORY SERVICES - [facility] PROTEIN UA Negative Negative 09/28/2018 7:31 PM CDT [employer] LABORATORY SERVICES - [facility] GLUCOSE UA 3+(A) Negative 09/28/2018 7:31 PM CDT [employer] LABORATORY SERVICES - . [facility] KETONES UA Trace(A) Negative 09/28/2018 7:31 PM CDT [employer] [facility] SERVICES - [facility] UROBILINOGEN UA Normal <2.0 mg/dL 9 7:31 PM CDT [employer] LABORATORY SERVICES - . [facility] BILIRUBIN UA Negative Negative 09/28/2018 7:31 PM CDT [employer] [facility] SERVICES - . [facility] BLOOD UA 1+(A) Negative 09/28/2018 7:31 PM CDT [employer] [facility] SERVICES - . [facility] WBC UA 0-2 0 - 2 /hpf 09/28/2018 7:31 PM CDT [employer] [facility] - . [facility] RBC UA 0-2 0 - 2 /hpf 09/28/2018 7:31 PM CDT [employer] LABORATORY SERVICES - . [facility] BACTERIA UA 1+(A) Negative /hpf 09/28/2018 7:31 PM CDT [facility] - [facility] EPITHELIAL CELLS, URINE 6-10(A) 0 - 5 /hpf 09/28/2018 7:31 PM CDT [facility] - [facility] Urine URINE SPECIMEN OBTAINED BY CLEAN CATCH PROCEDURE / Unknown Collection / Unknown 09/28/2018 6:54 PM CDT 09/28/2018 6:59 PM CDT Protocol [facility] Emergency URINE ORDERA BLES [facility] LABORATORY SERVICES [facility]# [id number] [address] [facility] [place] [address] * (ABNORMAL) MANUAL DIFFERENTIAL (09/28/2018 6:40 PM CDT) SEGMENTED NEUTROPHILS 72 % 09/28/2018 9:14 PM CDT [facility] - . [facility] BANDS RELATIVE 1 0 - 5 % 09/28/2018 9:14 PM CDT [employer] LABORATORY SERVICES - . [facility] LYMPHOCYTES RELATIVE 21 % 09/28/2018 9:14 PM CDT [employer] LABORATORY SERVICES - . [facility] ATYPICAL LYMPHOCYTES RELATIVE 2 0 - 5 % 09/28/2018 9:14 PM CDT [employer] LABORATORY SERVICES - . [facility] MONOCYTES RELATIVE 4 % 09/28/2018 9:14 PM CDT [employer] LABORATORY SERVICES - . [facility] EOSINOPHILS RELATIVE 1 % 09/28/2018 9:14 PM CDT [facility] - . [facility] NEUTROPHILS ABSOLUTE COUNT 8.29(H) 1.90 - 7.00 K/uL 09/28/2018 9:14 PM CDT [facility] - [facility] LYMPHOCYTES ABSOLUTE 2.38 0.70 - 4.50 K/uL 09/28/2018 9:14 PM CDT [employer] LABORATORY SERVICES - [facility] MONOCYTES ABSOLUTE 0.41 0.10 - 1.30 K/uL 09/28/2018 9:14 PM CDT [employer] LABORATORY SERVICES - [facility] EOSINOPHILS ABSOLUTE 0.10 0.00 - 0.70 K/uL 09/28/2018 9:14 PM CDT [facility] - . [facility] TOTAL CELLS COUNTED IN DIFF 110 09/28/2018 9:14 PM CDT [facility] - . [facility] RBC MORPHOLOGY Normal 09/28/2018 9:14 PM CDT [employer] LABORATORY SERVICES - [facility] PLATELET EST. Consistent w Count 09/28/2018 9:14 PM CDT [employer] LABORATORY SERVICES - [facility] Blood Venipuncture / Unknown 09/28/2018 6:40 PM CDT 09/28/2018 6:45 PM CDT Protocol [facility] Emergency HEMATOLOGY O RDERABLES COM [facility] [employer] [facility] CLNV# [id number] [address] [place] [address] * LIPASE (09/28/2018 6:40 PM CDT) LIPASE 51 13 - 60 U/L 09/28/2018 8:08 PM CDT [facility] Blood Venipuncture / Unknown 09/28/2018 6:40 PM CDT 09/28/2018 6:[address] [facility] LABORATORY SERVICES - [facility] - 09/28/2018 8:08 PM CDT Specimen Cleared of chylomicrons. [place] Tomas RN Protocol [facility] Emergency CHEMISTRY OR DERABLES [facility] LABORATORY [facility] CLIA# [id number] [address] [place] [address] * (ABNORMAL) COMPREHENSIVE METABOLIC PANEL (09/28/2018 6:40 PM CDT) SODIUM 126(L) 136 - 145 mmol/L 09/28/2018 8:[address] [facility] LABORATORY SERVICES - . [facility] POTASSIUM 3.6 3.5 - 5.0 mmol/L 09/28/2018 8:[address] [facility]ORATORY SERVICES - [facility] CHLORIDE 90(L) 98 - 107 mmol/L 09/28/2018 8:20 PM [facility] LABORATORY SERVICES - [facility] CO2 21(L) 22 - 29 mmol/L 09/28/2018 8:20 PM [facility] LABORATORY [facility] - [facility] CALCIUM 8.9 8.6 - 10.2 mg/dL 09/28/2018 8:20 PM [facility] LABORATORY [facility] - [facility] BUN 9 6 - 20 mg/dL 09/28/2018 8:20 PM [facility] LABORATORY SERVICES - . [facility] CREATININE 0.49(L) 0.51 - 0.95 mg/dL 09/28/2018 8:20 PM [facility] LABORATORY [facility] - . [facility] GLUCOSE 372(H) 74 - 99 mg/dL 09/28/2018 8:20 PM [facility] LABORATORY [facility] - . [facility] TOTAL PROTEIN 6.6(L) 6.7 - 8.6 g/dL 09/28/2018 8:20 PM [facility] LABORATORY [facility] - . [facility] ALBUMIN 4.0 3.5 - 5.2 g/dL 09/28/2018 8:20 PM [facility] LABORATORY [facility] - . [facility] BILIRUBIN TOTAL <0.2(L) 0.3 - 1.2 mg/dL 09/28/2018 8:20 PM [facility] LABORATORY [facility] - . [facility] ALKALINE PHOSPHATASE 104 35 - 104 U/L 09/28/2018 8:20 PM [facility] LABORATORY SERVICES - . [facility] AST <33 U/L 09/28/2018 8:20 PM [facility]ORY SERVICES - . [facility] Comment: Unable to evaluate due to lipemia Unable to evaluate due to lipemia. ALT <34 U/L 09/28/2018 8:[address] [facility] Comment: Unable to evaluate due to lipemia Unable to evaluate due to lipemia. GFR >60 >=60 mL/min/1.7 3 sq meter 09/28/2018 8:20 PM [address] [facility] Comment: eGFR has not been validated for [...] GFR, >60 >=60 mL/min/1.7 3 sq meter 09/28/2018 8:[address] [facility] LAB[facility]ATORY [facility] ANION GAP 15 8 - 16 mmol/L 09/28/2018 8:[address] [facility] Blood Venipuncture / Unknown 09/28/2018 6:40 PM CDT 09/28/2018 6:[address] [facility] LAB[facility]ORY [facility] - 09/28/2018 8:20 PM CDT Specimen Cleared of chylomicrons. Unable to report AST/ALT informed Genoveva OLGUIN Samples containing indocyanine green cause interferences on Total and/or Direct Bilirubin and must not be measured. Protocol [facility] Emergency MD CHEMISTRY OR DERABLES [facility] [employer] [facility] CLIA# [id number] [address] [facility] [address] [place] [address] [address] * (ABNORMAL) CBC WITH DIFFERENTIAL (09/28/2018 6:40 PM CDT) WBC 11.4(H) 4.0 - 9.8 K/uL 09/28/2018 7:[address] [facility] LAB[facility]ATORY [facility] RBC 3.98 3.90 - 4.90 M/uL 09/28/2018 7:[address] [facility] LABORATORY SERVICES - [facility] HEMOGLOBIN 11.0(L) 11.8 - 14.8 g/dL 09/28/2018 7:[address] [facility]ATORY SERVICES - [facility] Comment:Results corrected fo r elevated lipids. HEMATOCRIT 29.7(L) 35.5 - 44.0 % 09/28/2018 7:[address] [facility] LABORATORY SERVICES - [facility] MCV 86.9 82.0 - 99.0 fL 09/28/2018 7:[address] [facility] LAB[facility]ORY SERVICES - [facility] MCH 27.6 27.2 - 32.6 pg 09/28/2018 7:[address] [facility] LABORATORY SERVICES - [facility] MCHC 37.0(H) 31.5 - 35.5 g/dL 09/28/2018 7:[address] [facility] LABORATORY SERVICES - [facility] RDW 14.6(H) 11.5 - 14.5 % 09/28/2018 7:[address] [facility] LAB[facility]ATORY SERVICES - [facility] RDW-STDEV 46.6 37.1 - 48.7 fL 09/28/2018 7:[address] [facility] LAB[facility]ATORY SERVICES - [facility] PLATELETS 310 140 - 350 K/uL 09/28/2018 7:[address] [facility] LAB[facility]ATORY SERVICES - [facility] MPV 9.4 9.3 - 12.4 fL 09/28/2018 7:[address] [facility] LAB[facility]ATORY SERVICES - [facility] Blood Venipuncture / Unknown 09/28/2018 6:40 PM CDT 09/28/2018 6:45 PM CDT Protocol [facility] Emergency MD HEMATOLOGY O RDERABLES [facility] [employer] SERVICES [facility] CLIA# [id number] [address] [facility] [address] [place] [place] [address] * EKG 12-LEAD (09/28/2018 6:00 PM CDT) 09/28/2018 6:00 PM CDT Narrative INTERFACE SYSTEM - 09/29/2018 9:53 AM CDT ? Stationary ECG Study ? [facility] ? Test Date: ?09/28/2018 6:00 PM Pat Name: ? CASANDRA FEDDER ?Department: ?? 36 ?Room: ? 4212 Gender: ? F ?Carpenter Rough: ?? : ?1975 ? Requested By: ?? Order Number: [id number] ?Reading MD: ?? Malcom Blackburn ? Measurements Intervals ?[place] ? Rate: ? 103 ?P: ?57 OK: ? 154 ?QRS: ?60 QRSD: ? 86 ? T: ?-7 QT: ? 354 ? QTc: ?464 ? Interpretive Statements ? Sinus tachycardia Probable left atrial enlargement Borderline T abnormalities, inferior leads Electronically Signed On 09-29-2018 9:53:37 CDT by Malcom Blackburn Procedure Note Malcom Blackburn MD - 09/22/2020 Stationary ECG Study [facility] Test Date: 09/28/2018 6:00 PM Pat Name: CASANDRA DOSS Department: 36 Room: 4212 Gender: F Carpenter Rough: : 1975 Requested By: Order Number: [id number] Reading MD: Malcom Blackburn Measurements Intervals [place] Rate: 103 P: 57 OK: 154 QRS: 60 QRSD: 86 T: -7 QT: 354 QTc: 464 Interpretive Statements Sinus tachycardia Probable left atrial enlargement Borderline T abnormalities, inferior leads Electronically Signed On 09-29-2018 9:53:37 CDT by Malcom Blackburn Abhay Lan MD ECG ORDERABLES Performing Organization Address City/State/[facility] Co de Phone Number INTERFACE SYSTEM Refer to clinic/hospital department documented in this encounter Visit Diagnoses Diagnosis 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 syndrome Hyperchylomicronemia Abdominal pain, unspecified abdominal location Other specified diabetes mellitus with hyperglycemia, unspecified whether residential insulin use Hypertriglyceridemia Pure hyperglyceridemia Depression with anxiety Dysthymic disorder Type 2 diabetes mellitus without complication, with long-term current use of insulin Hyponatremia Hyposmolality and/or hyponatremia Epigastric pain Abdominal pain, epigastric History of plasmapheresis History of pancreatitis Personal history of other diseases of digestive system Metabolic syndrome Dysmetabolic Syndrome X History of gestational diabetes Personal history of gestational diabetes Family history of diabetes mellitus Family history of early CAD Family history of ischemic heart disease PCOS (polycystic ovarian syndrome) Polycystic ovaries Hypothyroidism, unspecified type Nausea vomiting and diarrhea Nausea with vomiting Tobacco use Tobacco use disorder Gastroesophageal reflux disease, esophagitis presence not specified Mixed hyperlipidemia Depression with anxiety Dysthymic disorder Type 2 diabetes mellitus without complication, with long-term current use of insulin Hypertriglyceridemia Pure hyperglyceridemia Hyponatremia Hyposmolality and/or hyponatremia Abdominal pain Abdominal pain, unspecified site History of pancreatitis Personal history of other diseases of digestive system History of plasmapheresis documented in this encounter Administered Medications Inactive Administered Medications - up to 3 most recent administrations Medication Order MAR Action Action Date Dose Rate Site acetaminophen (TYLENOL) tablet 650 mg 650 mg, Oral, EVERY 6 HOURS PRN, Starting on Sat09/28/18 at 2359, Until Sat10/02/18 at 1845, Other (See Comment), See admin instructions, Routine Given 09/29/2018 10:07 PM CDT 650 mg tybllux-utvjcl-lcvejtui DR NicholsCRERUDI 12) 60-12-38 per capsule 2 Capsule 2 Capsule, Oral, FOUR TIMES DAILY WITH MEALS AND AT BEDTIME, First dose on Sat09/30/18 at 1430, Until Discontinued, Routine Given 10/02/2018 12:25 PM CDT 2 Capsules Given 10/01/2018 7:43 PM CDT 2 Capsules Given 10/01/2018 11:36 AM CDT 2 Capsules atorvastatin (LIPITOR) tablet 80 mg 80 mg, Oral, DAILY AT BEDTIME, First dose on Sat09/29/18 at 0030, Until Discontinued, Routine Given 10/01/2018 8:54 PM CDT 80 mg Given 09/30/2018 8:23 PM CDT 80 mg Given 09/29/2018 9:05 PM CDT 80 mg bisacodyl (DULCOLAX) rectal suppository 10 mg 10 mg, Rectal, DAILY PRN, Starting on Sat09/28/18 at 2359, Until Sat10/02/18 at 1845, Constipation, Routine calcium GLUCONATE 2,000 mg in sodium chloride 0.9% 120 mL IVPB 2,000 mg, IV, ONE TIME ONLY, 1 dose, On Sat09/29/18 at 1600, Routine New Bag 09/29/2018 5:05 PM CDT 2,000 mg 144 mL/hr calcium GLUCONATE 2,000 mg in sodium chloride 0.9% 120 mL IVPB 2,000 mg, IV, INTRA-PROCEDURE ONCE, 1 dose, Starting on Sat09/30/18 at 1400, Until Sat09/30/18 at 1527, Routine New Bag 09/30/2018 2:37 PM CDT 2,000 mg 144 mL/ hr calcium GLUCONATE 2,000 mg in sodium chloride 0.9% 120 mL IVPB 2,000 mg, IV, INTRA-PROCEDURE ONCE, 1 dose, Starting on Sat10/01/18 at 0830, Until Sat10/01/18 at 1445, Routine Rate Verify 10/01/2018 2:00 PM CDT 144 mL/ hr Rate Verify 10/01/2018 1:56 PM CDT 144 mL/hr New Bag 10/01/2018 1:55 PM CDT 2,000 mg 144 mL/hr citalopram (CeleXA) tablet 40 mg 40 mg, Oral, DAILY AT BEDTIME, First dose on Sat09/29/18 at 0130, Until Discontinued, Routine Given 10/01/2018 8:53 PM CDT 40 mg Given 09/30/2018 8:23 PM CDT 40 mg Given 09/29/2018 9:06 PM CDT 40 mg dextrose 5% - sodium chloride 0.9% infusion IV, at 40 mL/hr, SEE ADMIN INSTRUCTIONS, Starting on Sat09/29/18 at 0610, Until Sat10/01/18 at 1207, Routine Rate Verify 09/30/2018 8:00 AM CDT 40 mL/hr 40 mL/h r Bag Switched 09/29/2018 11:16 PM CDT 40 mL/hr 40 mL/hr New Bag 09/29/2018 6:13 AM CDT 40 mL/hr 40 mL/hr dextrose 5% - sodium chloride 0.9% infusion IV, at 40 mL/hr, SEE ADMIN INSTRUCTIONS, Starting on Sat09/30/18 at 0907, Until Sat10/02/18 at 1845, Routine dextrose 50% (D50) syringe 12.5 Gram 12.5 Gram, IV, SEE ADMIN INSTRUCTIONS, Starting on Sat09/30/18 at 0907, Until Sat10/02/18 at 1845, Routine dextrose 50% (D50) syringe 25 Gram 25 Gram, IV, SEE ADMIN INSTRUCTIONS, Starting on Sat09/30/18 at 0907, Until Sat10/02/18 at 1845, Routine dicyclomine (BENTYL) capsule 10 mg 10 mg, Oral, FOUR TIMES DAILY, First dose on Sat09/29/18 at 0900, Until Discontinued, Routine Given 10/02/2018 12:25 PM CDT 10 mg Given 10/01/2018 8:54 PM CDT 10 mg Given 10/01/2018 4:06 PM CDT 10 mg diphenhydrAMINE (BENADRYL) tablet 25 mg 25 mg, Oral, EVERY 6 HOURS PRN, Starting on Sat09/28/18 at 2352, Until Sat10/02/18 at 0750, Itching, Routine Given 10/01/2018 7:10 PM CDT 25 mg Given 10/01/2018 8:59 AM CDT 25 mg Given 09/30/2018 8:22 PM CDT 25 mg diphenhydrAMINE (BENADRYL) tablet 25 mg 25 mg, Oral, ONE TIME ONLY, 1 dose, On Sat09/29/18 at 2200, Routine Given 09/29/2018 10:04 PM CDT 25 mg diphenhydrAMINE (BENADRYL) tablet 25 mg 25 mg, Oral, ONE TIME ONLY, 1 dose, On Sat10/01/18 at 2145, Routine Given 10/01/2018 9:52 PM CDT 25 mg docusate sodium (COLACE) capsule 100 mg 100 mg, Oral, TWO TIMES DAILY PRN, Starting on Sat09/28/18 at 2359, Until Sat10/02/18 at 1845, Constipation, Routine enoxaparin (LOVENOX) injection 40 mg 40 mg, subCUT, EVERY 24 HOURS, First dose on Sat09/29/18 at 2100, Until Discontinued, Routine, Indication: Prophylaxis of VTE, Dose to be adjusted per facility protocol? Yes Given 10/01/2018 8:54 PM CDT 40 mg Abdom inal Tissue Given 09/30/2018 8:22 PM CDT 40 mg Ab dominal Tissue Given 09/29/2018 9:04 PM CDT 40 mg Ab dominal Tissue fenofibrate (LOFIBRA) tablet 160 mg 160 mg, Oral, DAILY, First dose on Sat09/29/18 at 0900, Until Discontinued, Routine Given 10/02/2018 12:26 PM CDT 160 mg Given 10/01/2018 8:54 AM CDT 160 mg Given 09/30/2018 8:19 AM CDT 160 mg glucagon HCl 1 mg injection 1 mg 1 mg, IM, SEE ADMIN INSTRUCTIONS, Starting on Sat09/30/18 at 0907, Until Sat10/02/18 at 1845, Routine HYDROcodone-acetaminophen (NORCO) 5-325 mg per tablet 1 Tablet 1 Tablet, Oral, EVERY 4 HOURS PRN, Starting on Sat09/29/18 at 0000, Until Sat10/02/18 at 1845, Pain (See admin instructions), Routine Given 10/02/2018 2:27 PM CDT 1 Tablet Given 10/02/2018 10:04 AM CDT 1 Tablet Given 10/01/2018 8:53 PM CDT 1 Tablet ibuprofen (MOTRIN) tablet 800 mg 800 mg, Oral, EVERY 6 HOURS PRN, Starting on Sat09/29/18 at 0001, Until Sat10/02/18 at 1845, Other (See Comment), for headache, Routine Given 09/30/2018 2:15 AM CDT 8 00 mg Given 09/29/2018 9:05 PM CDT 800 mg Given 09/29/2018 11:31 AM CDT 800 mg insulin glargine (LANTUS) injection 20 Units 20 Units, subCUT, DAILY WITH BREAKFAST, First dose on Sat10/01/18 at 1215, Until Discontinued, Routine Given 10/02/2018 10:14 AM CDT 20 Units Right Arm Given 10/01/2018 4:00 PM CDT 20 Units Ar m, Right Upper insulin glargine (LANTUS) injection 30 Units 30 Units, subCUT, DAILY AT BEDTIME, First dose on Sat09/30/18 at 2100, Until Discontinued, Routine Given 10/01/2018 9:06 PM CDT 30 Units Abdominal Tissue Given 09/30/2018 9:01 PM CDT 30 Units An kle, Left insulin lispro (HumaLOG) injection 8 Units 8 Units, subCUT, THREE TIMES DAILY WITH MEALS, First dose on Sat09/30/18 at 1200, Until Discontinued, Routine Given 10/02/2018 1:06 PM CDT 8 Units Left Arm Given 10/02/2018 10:11 AM CDT 8 Units R ight Arm Given 10/01/2018 4:01 PM CDT 8 Units Ar m, Right Upper insulin lispro (HumaLOG) variable dose injection subCUT, THREE TIMES DAILY WITH MEALS, First dose on Sat09/30/18 at 1200, Until Discontinued, Routine Given 10/02/2018 1:06 PM CDT 3 Units Left Arm Given 10/01/2018 4:01 PM CDT 1 Units Ar m, Right Upper Given 10/01/2018 9:03 AM CDT 2 Units Ar m, Right Upper insulin lispro (HumaLOG) variable dose injection subCUT, DAILY AT BEDTIME, First dose on Sat09/30/18 at 2100, Until Discontinued, Routine Given 10/01/2018 9:06 PM CDT 1 Units Abdo minh Tissue Given 09/30/2018 9:00 PM CDT 2 Units Ar m, Left insulin regular (HUMULIN R,NOVOLIN R) 100 Units in sodium chloride 0.9% 100 mL infusion 5 Units/hr (5 mL/hr), IV, TITRATE, Starting on Sat09/29/18 at 0015, Until Sat09/30/18 at 0906 Rate Verify 09/30/2018 8:00 AM CDT 2 Units/hr 2 mL/hr Rate Verify 09/30/2018 5:16 AM CDT 2 Units/hr 2 mL/hr Rate Verify 09/30/2018 4:24 AM CDT 2 Units/hr 2 mL/hr lactated ringers infusion IV, at 125 mL/hr, CONTINUOUS, Starting on Sat09/30/18 at 0915, Until Sat10/01/18 at 1200, Routine Bag Switched 10/01/2018 11:31 AM CDT 125 mL/hr Rate Verify 09/30/2018 4:00 PM CDT 125 mL/hr Rate Verify 09/30/2018 10:00 AM CDT 125 mL/hr levothyroxine (SYNTHROID) tablet 200 mcg 200 mcg, Oral, DAILY EARLY, First dose on Sat09/29/18 at 0600, Until Discontinued, Routine Given 10/02/2018 5:00 AM CDT 200 mcg Given 10/01/2018 7:17 AM CDT 200 mcg Given 09/30/2018 6:48 AM CDT 200 mcg LORazepam (ATIVAN) tablet 1 mg 1 mg, Oral, TWO TIMES DAILY PRN, Starting on Sat09/29/18 at 0002, Until Sat10/02/18 at 1845, Anxiety, Routine Given 09/29/2018 1:27 PM CDT 1 mg Given 09/29/2018 2:22 AM CDT 1 mg magnesium hydroxide (MILK OF MAGNESIA) oral suspension 30 mL 30 mL, Oral, DAILY PRN, Starting on Sat09/28/18 at 2359, Until Sat10/02/18 at 1845, Constipation, Routine morphine 4 mg/mL injection 2 mg 2 mg, IV, EVERY 2 HOURS PRN, Starting on Sat09/28/18 at 2015, Until Sat09/28/18 at 2352, Pain, Moderate, Routine Given 09/28/2018 10:03 PM CDT 2 mg morphine 4 mg/mL injection 4 mg 4 mg, IV, ONE TIME ONLY, 1 dose, On Sat09/28/18 at 1845, Routine Given 09/28/2018 6:56 PM CDT 4 mg morphine 4 mg/mL injection 4 mg 4 mg, IV, ONE TIME ONLY, 1 dose, On Sat09/28/18 at 2015, Routine Given 09/28/2018 8:13 PM CDT 4 mg morphine 4 mg/mL injection 4 mg 4 mg, IV, EVERY 2 HOURS PRN, Starting on Sat09/28/18 at 2352, Until Sat09/30/18 at 1335, Pain, Moderate, Routine Given 09/30/2018 9:28 AM CDT 4 mg Given 09/30/2018 7:19 AM CDT 4 mg Given 09/30/2018 5:11 AM CDT 4 mg morphine 4 mg/mL injection 4 mg 4 mg, IV, EVERY 4 HOURS PRN, Starting on Sat09/30/18 at 1345, Until Sat10/02/18 at 1845, Pain, Moderate, Routine Given 10/02/2018 5:02 AM CDT 4 mg Given 10/02/2018 12:09 AM CDT 4 mg Given 10/01/2018 7:06 PM CDT 4 mg naloxone (NARCAN) 0.4 mg/mL injection 0.1 mg 0.1 mg, IV, SEE ADMIN INSTRUCTIONS, Starting on Sat09/28/18 at 2359, Until Sat10/02/18 at 1845, Routine niacin (NIACOR) tablet 500 mg 500 mg, Oral, TWO TIMES DAILY, First dose on Sat09/29/18 at 0900, Until Discontinued, Routine Given 10/01/2018 8:54 PM CDT 500 mg Given 10/01/2018 8:59 AM CDT 500 mg Given 09/30/2018 8:24 PM CDT 500 mg nicotine (NICODERM CQ) 21 mg/24 hr transdermal patch 1 Patch 1 Patch, Transdermal, DAILY, First dose on Sat09/29/18 at 0230, Until Discontinued, Routine Applied 10/01/2018 8:57 PM CDT 1 Patch Other (Comment) Applied 09/30/2018 8:29 PM CDT 1 Patch [place], Left Applied 09/29/2018 8:14 AM CDT 1 Patch Ar m, Left ondansetron (ZOFRAN ODT) tablet 4 mg 4 mg, Oral, EVERY 8 HOURS PRN, Starting on Sat09/29/18 at 0001, Until [facility] 10/02/18 at 1845, Nausea/Emesis, Routine Given 09/30/2018 8:33 PM CDT 4 mg Given 09/29/2018 3:59 AM CDT 4 mg ondansetron (ZOFRAN) 4 mg/2 mL injection 4 mg 4 mg, IV, ONE TIME ONLY, 1 dose, On [place] 09/28/18 at 1845, Routine Given 09/28/2018 6:56 PM CDT 4 mg ondansetron (ZOFRAN) 4 mg/2 mL injection 4 mg 4 mg, IV, EVERY 6 HOURS PRN, Starting on Sat09/28/18 at 2015, Until Sat09/29/18 at 0001, Nausea/Emesis, Routine Given 09/28/2018 10:03 PM CDT 4 mg pantoprazole (PROTONIX) tablet 40 mg 40 mg, Oral, TWO TIMES DAILY, First dose on Sat09/29/18 at 0015, Until Discontinued, Routine Given 10/02/2018 12:26 PM CDT 40 mg Given 10/01/2018 8:54 PM CDT 40 mg Given 10/01/2018 8:55 AM CDT 40 mg sennosides (SENOKOT) tablet 8.6 mg 8.6 mg, Oral, DAILY, First dose on Sat10/02/18 at 0945, Until Discontinued, Routine Given 10/02/2018 9:51 AM CDT 8.6 mg sodium chloride (OCEAN) 0.65 % nasal soln 2 Zaleski 2 Zaleski, Both Nostrils, EVERY 15 MINUTES PRN, Starting on Sat10/01/18 at 0431, Until Sat10/02/18 at 1845, Congestion, Routine Given 10/01/2018 9:04 AM CDT 2 Sprays sodium chloride 0.9% bolus solution 1,000 mL 1,000 mL, IV, ONE TIME ONLY, 1 dose, On Sat09/28/18 at 1845, at 2,000 mL/hr, Administer over 30 Minutes, Routine New Bag 09/28/2018 6:54 PM CDT 1,000 mL 2000 mL/hr sodium chloride 0.9% infusion IV, at 150 mL/hr, CONTINUOUS, Starting on Sat09/28/18 at 2030, Until Sat09/30/18 at 0906, Routine New Bag 09/29/2018 9:25 PM CDT 150 mL/hr New Bag 09/29/2018 1:47 AM CDT 150 mL/hr Rate Change 09/29/2018 12:37 AM CDT 150 mL/hr spironolactone (ALDACTONE) tablet 25 mg 25 mg, Oral, DAILY, First dose on Sat09/29/18 at 0900, Until Discontinued, Routine Given 10/02/2018 12:27 PM CDT 25 mg Given 10/01/2018 8:55 AM CDT 25 mg Given 09/30/2018 8:19 AM CDT 25 mg traZODone (DESYREL) tablet 100 mg 100 mg, Oral, DAILY AT BEDTIME, First dose on Sat09/29/18 at 0100, Until Discontinued, Routine Given 10/01/2018 8:54 PM CDT 100 mg Given 09/30/2018 8:22 PM CDT 100 mg Given 09/29/2018 9:04 PM CDT 100 mg documented in this encounter Active and Recently Administered Medications Times are shown in CDT. Scheduled Medication Order 09/30/2018 10/01/2018 10/02/2018 [id number] e (CREON 12) 42-12-54 per capsule 2 Capsule 2 Capsule, Oral, FOUR TIMES DAILY WITH MEALS AND AT BEDTIME, First dose on Sat09/30/18 at 1430, Until Discontinued, Routine 1430 (Not Given - Provider: Rosa Matthews RN - Reason: Patient off unit)1700 (Refused - Provider: Rosa Matthews RN)2023 (Given - Provider: Jack Roberts RN) 0700 (Refused - Provider: Katia Lima RN - Comment: Pt not eating breakfast.)1136 (Given - Provider: Katia Lima RN)1943 (Given - Provider: BLAISE Cabezas)2100 (Refused - Provider: BLAISE Cabezas - Comment: pt states she only takes w meals) 0949 (Canceled Entry - Provider: Betty Renteria, CLAU - Comment: staggering doses. pills dropped, waited for pharmacy to resend all meds)1225 (Given - Provider: Betty Renteria, CLAU) atorvastatin (LIPITOR) tablet 80 mg 80 mg, Oral, DAILY AT BEDTIME, First dose on Sat09/29/18 at 0030, Until Discontinued, Routine 2022 (Given - Provider: Jack Roberts RN) 2053 (Given - Provider: BLAISE Cabezas) calcium GLUCONATE 2,000 mg in sodium chloride 0.9% 120 mL IVPB (COMPLETED) 2,000 mg, IV, INTRA-PROCEDURE ONCE, 1 dose, Starting on Sat09/30/18 at 1400, Until Sat09/30/18 at 1527, Routine 1437 (New Bag - Provider: Daniel Whitehead RN)1527 (Stopped - Provider: Daniel Whitehead RN) calcium GLUCONATE 2,000 mg in sodium chloride 0.9% 120 mL IVPB (COMPLETED) 2,000 mg, IV, INTRA-PROCEDURE ONCE, 1 dose, Starting on Sat10/01/18 at 0830, Until Sat10/01/18 at 1445, Routine 1355 (New Bag - Provider: Rosales Tapia RN)1356 (Rate Verify - Provider: Katia Lima, CLAU)1400 (Rate Verify - Provider: Katia Lima RN)1445 (Stopped - Provider: Rosales Tapia RN) citalopram (CeleXA) tablet 40 mg 40 mg, Oral, DAILY AT BEDTIME, First dose on Sat09/29/18 at 0130, Until Discontinued, Routine 2022 (Given - Provider: Jack Roberts RN) 2052 (Given - Provider: BLAISE Cabezas) dextrose 5% - sodium chloride 0.9% infusion (CANCELED) IV, at 40 mL/hr, SEE ADMIN INSTRUCTIONS, Starting on Sat09/29/18 at 0610, Until Sat10/01/18 at 1207, Routine 0800 (Rate Verify - Provider: Rosa Matthews RN)0912 (Stopped - Provider: Rosa Matthews RN)0912 (Stopped - Provider: Jack Roberts RN) dextrose 5% - sodium chloride 0.9% infusion IV, at 40 mL/hr, SEE ADMIN INSTRUCTIONS, Starting on Sat09/30/18 at 0907, Until Sat10/02/18 at 1845, Routine dextrose 50% (D50) syringe 12.5 Gram 12.5 Gram, IV, SEE ADMIN INSTRUCTIONS, Starting on Sat09/30/18 at 0907, Until Sat10/02/18 at 1845, Routine dextrose 50% (D50) syringe 25 Gram 25 Gram, IV, SEE ADMIN INSTRUCTIONS, Starting on Sat09/30/18 at 0907, Until Sat10/02/18 at 1845, Routine dicyclomine (BENTYL) capsule 10 mg 10 mg, Oral, FOUR TIMES DAILY, First dose on Sat09/29/18 at 0900, Until Discontinued, Routine 0819 (Given - Provider: Rosa Matthews RN)1410 (Given - Provider: Rosa Matthews RN)1806 (Given - Provider: Rosa Matthews RN)2024 (Given - Provider: Jack Roberts RN) 0854 (Given - Provider: Katia Lima RN)1606 (Given - Provider: Katia Lima RN)1800 (Not Given - Provider: Katia Lima RN - Reason: Medication already given)2053 (Given - Provider: BLAISE Cabezas) 0949 (Canceled Entry - Provider: Betty Renteria RN - Comment: staggering doses. pills dropped, waited for pharmacy to resend all meds)1225 (Given - Provider: Betty Renteria RN) diphenhydrAMINE (BENADRYL) tablet 25 mg (COMPLETED) 25 mg, Oral, ONE TIME ONLY, 1 dose, On Sat10/01/18 at 2145, Routine 2152 (Given - Provider: BLAISE Cabezas) enoxaparin (LOVENOX) injection 40 mg 40 mg, subCUT, EVERY 24 HOURS, First dose on Sat09/29/18 at 2100, Until Discontinued, Routine, Indication: Prophylaxis of VTE, Dose to be adjusted per facility protocol? Yes 2021 (Given - Provider: Jack Roberts RN) 2053 (Given - Provider: BLAISE Cabezas) fenofibrate (LOFIBRA) tablet 160 mg 160 mg, Oral, DAILY, First dose on Sat09/29/18 at 0900, Until Discontinued, Routine 0819 (Given - Provider: Rosa Matthews RN) 0854 (Given - Provider: Katia Lima RN) 1226 (Given - Provider: Betty Renteria RN - Comment: pills dropped, waited for pharmacy to resend all meds) glucagon HCl 1 mg injection 1 mg 1 mg, IM, SEE ADMIN INSTRUCTIONS, Starting on Sat09/30/18 at 0907, Until Sat10/02/18 at 1845, Routine insulin glargine (LANTUS) injection 20 Units 20 Units, subCUT, DAILY WITH BREAKFAST, First dose on Sat10/01/18 at 1215, Until Discontinued, Routine 1600 (Given - Provider: Katia Lima RN - Comment: BG 183.) 1014 (Given - Provider: Betty Renteria RN - Comment: 160) insulin glargine (LANTUS) injection 30 Units 30 Units, subCUT, DAILY AT BEDTIME, First dose on Sat09/30/18 at 2100, Until Discontinued, Routine 210 (Given - Provider: Jack Roberts RN) 210 (Given - Provider: BLAISE Cabezas) insulin lispro (HumaLOG) injection 8 Units 8 Units, subCUT, THREE TIMES DAILY WITH MEALS, First dose on Sat09/30/18 at 1200, Until Discontinued, Routine 1409 (Refused - Provider: Rosa Matthews RN - Comment: 169)1700 (Refused - Provider: Rosa Matthews RN - Comment: not eating) 0902 (Given - Provider: Katia Lima RN - Comment: BG 237. Pt drinking apple juice.)1601 (Given - Provider: Katia Lima RN - Comment: BG 183.)1700 (Not Given - Provider: Katia Lima RN - Reason: Medication already given) 1011 (Given - Provider: Betty Renteria RN - Comment: 160)1306 (Given - Provider: Betty Renteria RN - Comment: 285) insulin lispro (HumaLOG) variable dose injection subCUT, THREE TIMES DAILY WITH MEALS, First dose on Sat09/30/18 at 1200, Until Discontinued, Routine 1410 (Not Given - Provider: Rosa Matthews RN - Reason: Lab results - Comment: 169)1700 (Not Given - Provider: Rosa Matthews RN - Reason: Lab results - Comment: 170) 0903 (Given - Provider: Katia Lima RN - Comment: BG 237.)1601 (Given - Provider: Katia Lima RN - Comment: BG 183.)1700 (Not Given - Provider: Katia Lima RN - Reason: Medication already given) 1013 (Not Given - Provider: Betty Renteria RN - Reason: Lab results - Comment: 160)1306 (Given - Provider: Betty Renteria RN - Comment: 285) insulin lispro (HumaLOG) variable dose injection subCUT, DAILY AT BEDTIME, First dose on Sat09/30/18 at 2100, Until Discontinued, Routine 2100 (Given - Provider: Jack Roberts RN) 2106 (Given - Provider: BLAISE Cabezas - Comment: 212) levothyroxine (SYNTHROID) tablet 200 mcg 200 mcg, Oral, DAILY EARLY, First dose on Sat09/29/18 at 0600, Until Discontinued, Routine 0648 (Given - Provider: Jack Roberts RN) 0717 (Given - Provider: Jack Roberts RN) 0500 (Given - Provider: BLAISE Cabezas) naloxone (NARCAN) 0.4 mg/mL injection 0.1 mg 0.1 mg, IV, SEE ADMIN INSTRUCTIONS, Starting on Sat09/28/18 at 2359, Until Sat10/02/18 at 1845, Routine niacin (NIACOR) tablet 500 mg (CANCELED) 500 mg, Oral, TWO TIMES DAILY, First dose on Sat09/29/18 at 0900, Until Discontinued, Routine 818 (Given - Provider: Rosa Matthews RN)2023 (Given - Provider: Jack Roberts RN) 08 (Given - Provider: Katia Lima RN)2053 (Given - Provider: BLAISE Cabezas) nicotine (NICODERM CQ) 21 mg/24 hr transdermal patch 1 Patch 1 Patch, Transdermal, DAILY, First dose on Sat09/29/18 at 0230, Until Discontinued, Routine 2028 (Applied - Provider: Jack Roberts RN) 2028 (Removed - Provider: BLAISE Cabezas)2056 (Applied - Provider: BLAISE Cabezas - Comment: right neck) 1645 (Due: Removed - Provider: PROVIDER, DISCHARGE PATIENT - Comment: Time automatically adjusted from order being discontinued) pantoprazole (PROTONIX) tablet 40 mg 40 mg, Oral, TWO TIMES DAILY, First dose on Sat09/29/18 at 0015, Until Discontinued, Routine 817 (Given - Provider: Rosa Matthews RN)2021 (Given - Provider: Jack Roberts RN) 0855 (Given - Provider: Katia Lima RN)2053 (Given - Provider: BLAISE Cabezas) 122 (Given - Provider: Betty Renteria RN - Comment: pills dropped, waited for pharmacy to resend all meds) sennosides (SENOKOT) tablet 8.6 mg 8.6 mg, Oral, DAILY, First dose on Sat10/02/18 at 0945, Until Discontinued, Routine 09 (Given - Provid er: Betty Renteria RN) spironolactone (ALDACTONE) tablet 25 mg 25 mg, Oral, DAILY, First dose on Sat09/29/18 at 0900, Until Discontinued, Routine 818 (Given - Provider: Rosa Matthews RN) 0855 (Given - Provider: Katia Lima RN) 122 (Given - Provider: Betty Renteria RN - Comment: pills dropped, waited for pharmacy to resend all meds) traZODone (DESYREL) tablet 100 mg 100 mg, Oral, DAILY AT BEDTIME, First dose on Sat09/29/18 at 0100, Until Discontinued, Routine 2021 (Given - Provider: Jack Roberts RN) 2053 (Given - Provider: BLAISE Cabezas) Continuous Medication Order 09/30/2018 10/01/2018 10/02/2018 insulin regular (HUMULIN R,NOVOLIN R) 100 Units in sodium chloride 0.9% 100 mL infusion (CANCELED) 5 Units/hr (5 mL/hr), IV, TITRATE, Starting on Sat09/29/18 at 0015, Until Sat09/30/18 at 0906 0008 (Rate Change - Provider: Jack Roberts RN)0121 (Rate Verify - Provider: Jack Roberts RN)0208 (Rate Change - Provider: Jack Roberts RN)0339 (New Bag - Provider: Jack Roberts RN)0424 (Rate Verify - Provider: Jack Roberts RN)0516 (Rate Verify - Provider: Jack Roberts RN)0800 (Rate Verify - Provider: Rosa Matthews RN)0914 (Stopped - Provider: Rosa Matthews RN) lactated ringers infusion (CANCELED) IV, at 125 mL/hr, CONTINUOUS, Starting on Sat09/30/18 at 0915, Until Sat10/01/18 at 1200, Routine 0912 (New Bag - Provider: Rosa Matthews RN)1000 (Rate Verify - Provider: Rosa Matthews RN)1600 (Rate Verify - Provider: Rosa Matthews RN) 1131 (Bag Switched - Provider: Katia Lima RN)2108 (Stopped - Provider: BLAISE Cabezas) PRN Medication Order 09/30/2018 10/01/2018 10/02/2018 acetaminophen (TYLENOL) tablet 650 mg 650 mg, Oral, EVERY 6 HOURS PRN, Starting on Sat09/28/18 at 2359, Until Sat10/02/18 at 1845, Other (See Comment), See admin instructions, Routine bisacodyl (DULCOLAX) rectal suppository 10 mg 10 mg, Rectal, DAILY PRN, Starting on 09/28/18 at 2359, Until Sat10/02/18 at 1845, Constipation, Routine diphenhydrAMINE (BENADRYL) tablet 25 mg (CANCELED) 25 mg, Oral, EVERY 6 HOURS PRN, Starting on 09/28/18 at 2352, Until Katie 10/02/18 at 0750, Itching, Routine 0518 (Given - Provider: Jack Roberts RN)202 (Given - Provider: Jack Roberts RN) 0859 (Given - Provider: Katia Lima, CLAU)1910 (Given - Provider: Jack Martinez RN) docusate sodium (COLACE) capsule 100 mg 100 mg, Oral, TWO TIMES DAILY PRN, Starting on 09/28/18 at 2359, Until Katie 10/02/18 at 1845, Constipation, Routine HYDROcodone-acetaminop hen (NORCO) 5-325 mg per tablet 1 Tablet 1 Tablet, Oral, EVERY 4 HOURS PRN, Starting on 09/29/18 at 0000, Until Katie 10/02/18 at 1845, Pain (See admin instructions), Routine 0818 (Given - Provider: Rosa Matthews RN)1321 (Given - Provider: Susan Del Toro RN)1806 (Given - Provider: Rosa Matthews RN)2222 (Given - Provider: Jack Robrets RN) 0438 (Given - Provider: Jack Roberts RN)0853 (Given - Provider: Katia Lima RN)1605 (Given - Provider: Katia Lima RN)2053 (Given - Provider: BLAISE Cabezas) 0951 (Canceled Entry - Provider: Betty Renteria RN - Comment: dropped pill)1004 (Given - Provider: Betty Renteria RN)1427 (Given - Provider: Betty Renteria RN) ibuprofen (MOTRIN) tablet 800 mg 800 mg, Oral, EVERY 6 HOURS PRN, Starting on 09/29/18 at 0001, Until Katie 10/02/18 at 1845, Other (See Comment), for headache, Routine 0215 (Given - Provider: Jack Roberts RN) LORazepam (ATIVAN) tablet 1 mg 1 mg, Oral, TWO TIMES DAILY PRN, Starting on Sat09/29/18 at 0002, Until Katie 10/02/18 at 1845, Anxiety, Routine magnesium hydroxide (MILK OF MAGNESIA) oral suspension 30 mL 30 mL, Oral, DAILY PRN, Starting on Sat09/28/18 at 2359, Until Katie 10/02/18 at 1845, Constipation, Routine morphine 4 mg/mL injection 4 mg (CANCELED) 4 mg, IV, EVERY 2 HOURS PRN, Starting on Sat09/28/18 at 2352, Until Sat09/30/18 at 1335, Pain, Moderate, Routine 0013 (Given - Provider: Jack Roberts RN)0213 (Given - Provider: Jack Roberts RN)0511 (Given - Provider: Jack Roberts RN)0719 (Given - Provider: Jack Roberts RN)0928 (Given - Provider: Rosa Matthews RN) morphine 4 mg/mL injection 4 mg 4 mg, IV, EVERY 4 HOURS PRN, Starting on Sat09/30/18 at 1345, Until Katie 10/02/18 at 1845, Pain, Moderate, Routine 1556 (Given - Provider: Rosa Matthews RN)2026 (Given - Provider: Jack Roberts RN) 0234 (Given - Provider: Jack Roberts RN)0716 (Given - Provider: Jack Roberts RN)1135 (Given - Provider: Katia Lima RN)1906 (Given - Provider: Jack Martinez RN) 0009 (Given - Provider: BLAISE Cabezas)0502 (Given - Provider: BLAISE Cabezas) ondansetron (ZOFRAN ODT) tablet 4 mg 4 mg, Oral, EVERY 8 HOURS PRN, Starting on Sat09/29/18 at 0001, Until Sat10/02/18 at 1845, Nausea/Emesis, Routine 2033 (Given - Provider: Jack Roberts RN) sodium chloride (OCEAN) 0.65 % nasal soln 2 Zaleski 2 Zaleski, Both Nostrils, EVERY 15 MINUTES PRN, Starting on Sat10/01/18 at 0431, Until Sat10/02/18 at 1845, Congestion, Routine 0904 (Given - Provider: Katia Lima RN) documented in this encounter Care Teams Fur Finisher Relationship Specialty Start Date End Date Guerrero Middleton PA-C PCP - General Physician Central Office Repairer Supervisor 02/13/18 documented as of this encounter
--- OUTSIDE RECORDS SUMMARY | 2024-05-03 20:44 | XMS_ITS | Encounter Summary ---
Author Organization [facility] Address [address] [place] [address] Care Team Providers Care Flight Operations Coordinator Name Role Phone Guerrero Middleton PA-C Primary Care Provide r Reason for Visit * Reason Onset Date Comments Dr. Osorio from [place] called 10/24/2018 Encounter Details Date Type Department Care Team (Late st Contact Info) Description 10/24/2018 Telephone [facility] V[facility] At [facility] [address] [place] [address] Marlys Mayer MD [address] [place] [address] [address] [place] [address] Dr. Osorio from [place] called Social History Tobacco Use Types Packs/Day Years [...] Encounter - Alexandra Kahn RN - 10/24/2018 4:14 PM CDT Called patient, she is aware no decision has been made when she will get her port put in yet * Telephone Encounter - Alexandra Kahn RN - 10/24/2018 12:[address] Osorio from [facility] called stating he did not have the email from February, the email we sentthis morning is blank. Faxed information to [phone]. Patient is scheduled for December 01, [address] Osorio, is aware she needs to stay there 3 to 5 days and they will do as much testing as federico zelaya. Patient is also aware that she needs to confirm her insurance benefits before going to the [facility]. Called Dr. Mayer to advise her Dr. Osorio would like a call from her to explain what she needs done with the patient, Dr. Mayer to call [phone] Vivar's ore tester who will connect the 2 of them. documented in this encounter Plan of Treatment Upcoming Encounters Date Type Department Care Team (Late st Contact Info) Description 09/14/2024 3:00 PM CDT Office Visit [facility] Heart and Vascular - [facility] [id number] [place] [address] Marlys Mayer MD [address] [place] [address] documented as of this encounter Visit Diagnoses Not on filedocumented in this encounter Care Teams Flight Operations Coordinator Relationship Specialty Start Date End Date Guerrero Middleton PA-C PCP - General Physician Freezer Tunnel Operator 02/13/18 documented as of this encounter
--- OUTSIDE RECORDS SUMMARY | 2024-05-03 20:44 | XMS_ITS | Encounter Summary ---
Author Organization [facility] Address [address] [place] [address] Care Team Providers Care Materials Clerk Name Role Phone Guerrero Middleton PA-C Primary Care Provide r Encounter Details Date Type Department Care Team (Latest Contact Info) Description 11/24/2018 9:45 AM CDT - 11/24/2018 11:59 PM T Hospital Encounter [facility] [address] [place] [address] Alize Arteaga MD NO ADDRESS ON FILE [...] any clubs o r organizations such as gnosticism groups, unions, fraternal or athletic groups, or [...] Sign Reading Time Taken Comments Blood Pressure 110/75 11/24/2018 11:50 AM CDT Pulse 95 11/24/2018 11:50 AM CDT Temperature 37.1 ??C (98.7 ??F) 11/24/2018 11:50 AM C DT Respiratory Rate 16 11/24/2018 11:50 AM CDT Oxygen Saturation - - Inhaled [...] Progress Notes * Alize Arteaga MD - 11/24/2018 5:27 PM CDT CC: ??43 yo female with hypertriglyceridemia associated??with??recurrent necrotizing pancreatitis initiated on prophylactic plasma exchange for prevention of hypertriglyceridemic pancreatitis starting 11/12/18.??(ASFA category III indication for apheresis). ?? Interval history: ??Denies abdominal pain, nausea. Reports she didn't eat well over the weekend; was celebrating her birthday. Hasn't eaten yet today. ?? PMH: ??Hypertriglyceridemia (associated with prior episodes of pancreatitis, received inpatient plasma exchanges 04/2018, 07/2018 and 09/2018), DM, anxiety, GERG, HLD, hypothyroidism, PCOS ?? Meds: as per EPIC. ?? Exam: ??Patient resting in chair. ??Ports accessed in chest??with clear dressing in place. ??No erythema, induration or drainage observed. ?? Labs:??triglycerides 870??(pre-procedure) ?? A&P: 1. 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 2. ??We will perform a 1.0 volume plasma exchange with all albumin replacement with 100% fluid balance with 2 g calcium gluconate over the procedure. 3.??Per Drs. Rudd and Moreno,??goal??triglycerides <500. We will obtain triglycerides prior to each procedure. ??We may need to modify plan based on triglyceride results. 4. Triglycerides trending down.??Case discussed with Dr. Rudd 11/14/18. Patient to skip treatmentthe week of 12/01/18, as she is going to [place] for an evaluation that week. We have two procedures scheduled for the week of 12/08/18. We can cancel the second procedure that week if triglycerides are below 1000. ?? Procedure #4: ??Patient still feels generally unwell. ??No specific nausea or abdominal pain. Patient complains of pain over lateral port site. Palpated port, it is closer to skin than central port. Will discuss with company and IR. Patient tolerated procedure well. Plasma looked the best I have seen it look in a long time; almost normal. ?? I have seen and examined the patient, reviewed pertinent notes and records, and remained immediately available throughout the procedure. ?? Alzie Arteaga MD, PhD Emergency Department Director, therapeutic apheresis service [phone] * Daniel Whitehead RN - 11/24/2018 12:15 PM CDT Plasma exchange completed today using right chest BARD ports. Medial BARD port used for return and distal BARD port used for draw. 1.0 volume, 100% fluid balance using 5% Albumin as replacement fluidcompleted. 2 grams calcium gluconate given intra procedure. Patient tolerated procedure well. Next p rocedure scheduled for December [address] Arteaga. documented in this encounter Plan of Treatment Upcoming Encounters Date Type Department Care Team (Late st Contact Info) Description 09/14/2024 3:00 PM CDT Office Visit [facility] [address] [place] [address] Marlys Mayer MD [address] [place] [address] documented as of this encounter Procedures Procedure Name Priority Date/Time Associated Diagnosis Comments TRIGLYCERIDE Routine 11/24/2018 10:29 AM CDT Metabolic syndrome History of [...] in this encounter Results * (ABNORMAL) TRIGLYCERIDE (11/24/2018 10:29 AM CDT) TRIGLYCERIDE 870(H) <150 mg/dL 11/24/2018 11:09 AM CDT [facility] Blood Collection / Unknown 11/24/2018 10:29 AM CDT 11/24/2018 10:29 AM CDT Narrative [facility] - 11/24/2018 11:09 AM CDT TRIGLYCERIDES ? mg/dL Normal ?< 150 Borderline High ?150 - 199 High ? 200 - 499 Very High ? >= 500 Based on AHA/NCEP Guidelines. Alize Arteaga MD CHEMISTRY ORDER OSVALDO [facility]# [id number] [address] [facility] [address] documented in this encounter Visit Diagnoses Diagnosis [...] IV, INTRA-PROCEDURE ONCE, 1 dose, Starting on Sat11/24/18 at 1000, Until Sat11/24/18 at 1122, Routine New Bag 11/24/2018 10:32 AM CDT 2,000 mg 240 mL/hr heparin injection 2,000 Units 2,000 Units, IV, ONE TIME ONLY, 1 dose, On Sat11/24/18 at 1130, Routine, PLEASE TUBE TO STATION 516. Given 11/24/2018 11:55 AM CDT 2,000 Units heparin injection 2,000 Units 2,000 Units, IV, ONE TIME ONLY, 1 dose, On Sat11/24/18 at 1130, Routine, PLEASE TUBE TO STATION 516. Given 11/24/2018 11:54 AM CDT 2,000 Units lidocaine (L.M.X.4) 4 % topical cream Topical, ONE TIME PRN, 2 doses, Starting on Sat11/24/18 at 0956, Until Sat11/25/18 at 0248, Pre Medication, PLACE OVER RIGHT CHEST BARD PORT PRE PROCEDURE., Routine, PLEASE TUBE TO STATION 516. Given 11/24/2018 11:07 AM CDT Chest, Right documented in this encounter Care Teams Materials Clerk Relationship Specialty Start Date End Date Guerrero Middleton PA-C PCP - General Physician Plasterer Foreman 02/13/18 documented as of this encounter
--- OUTSIDE RECORDS SUMMARY | 2024-05-03 20:44 | XMS_ITS | Encounter Summary ---
Author Organization [facility] Address [address] [place] [address] Care Team Providers Care Gear Setter Name Role Phone Guerrero Middleton PA-C Primary Care Provide r Encounter Details Date Type Department Care Team (Latest Contact Info) Description 12/10/2018 10:00 AM CDT - 12/10/2018 11:59 PM T Hospital Encounter [facility] Blood Bank Donor Center [facility] [employer] [address] [place] [address] Marlys Mayer MD [address] [place] [address] Discharge Disposition: Home or Self Care Social [...] Sign Reading Time Taken Comments Blood Pressure 102/66 12/10/2018 11:45 AM CDT Pulse 80 12/10/2018 11:45 AM CDT Temperature 37.2 ??C (98.9 ??F) 12/10/2018 11:45 AM C DT Respiratory Rate 16 12/10/2018 11:45 AM CDT Oxygen Saturation - - Inhaled [...] Progress Notes * Alize Arteaga MD - 12/10/2018 4:16 PM CDT CC: ??43 yo female with hypertriglyceridemia associated??with??recurrent necrotizing pancreatitis initiated on prophylactic plasma exchange for prevention of hypertriglyceridemic pancreatitis starting 11/12/18.??(ASFA category III indication for apheresis). ?? Interval history: ??Denies abdominal pain, nausea. Patient recently seen in consultation at [facility]. She was recommended a low fat diet by [facility], as has previously been recommended by her endocrinologisthere. She has been trying to meet the low fat diet requirements, but admits this is a struggle. ?? PMH: ??Hypertriglyceridemia (associated with prior episodes of pancreatitis, received inpatient plasma exchanges 04/2018, 07/2018 and 09/2018, started on prophylactic exchanges October 2018), DM, anxiety, GERG, HLD, hypothyroidism, PCOS ?? Meds: as per EPIC. ?? Exam: ??Patient resting in chair. ??Ports accessed in chest??with clear dressing in place. ??No erythema, induration or drainage observed. ?? Labs:??triglycerides 197??(pre-procedure), 88 (post procedure) ?? A&P: 1. 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 2. ??We will perform a 1.0 volume plasma exchange with all albumin replacement with 100% fluid balance with 2 g calcium gluconate over the procedure. 3.??Per Drs. Rudd and Moreno,??goal??triglycerides <500. We will obtain triglycerides prior to each procedure. ??We may need to modify plan based on triglyceride results. 4. Triglycerides trending down. 5. Plan to send patient to IR for evaluation of lateral port due to continued pain around site. ?? Procedure #5: ??Patient feels pretty good.??No specific nausea or abdominal pain.??Patient complains of continued pain over lateral port site. Palpated port, it is closer to skin than central port. Patient tolerated procedure well. Plasma looked normal. Plan to have patient return in two weeks for triglyceride level, port flush, and possible apheresis. Will determine need for apheresis based on trigylceride level at that time. ?? I have seen and examined the patient, reviewed pertinent notes and records, and remained immediately available throughout the procedure. ?? Alize Arteaga MD, PhD Software Design Analyst, therapeutic apheresis service [phone] * Sari Sanford - 12/10/2018 12:24 PM CDT Plasma exchange completed using the R implanted BARD port for draw and return. 5% Albumin used as replacement fluid for a 1.0 volume exchange. Pre triglycerides 197 and post triglycerides 88. Patientis scheduled to come back 12/25 for flush, labs and possible exchange. documented in this encounter Plan of Treatment Upcoming Encounters Date Type Department Care Team (Late st Contact Info) Description 09/14/2024 3:00 PM CDT Office Visit [facility] Heart and Vascular - [facility] [address] [place] [address] Marlys Mayer MD [address] [place] [address] documented as of this encounter Procedures Procedure Name Priority Date/Time Associated Diagnosis Comments TRIGLYCERIDE Stat 12/10/2018 11:42 AM CDT Metabolic syndrome History of gestational [...] hypothyroidism Recurrent pancreatitis CBC WITHOUT DIFFERENTIAL Routine 12/10/2018 10:06 AM CDT Metabolic syndrome History of gestational [...] pain Acquired hypothyroidism Recurrent pancreatitis TRIGLYCERIDE Routine 12/10/2018 10:06 AM CDT Metabolic syndrome History of gestational [...] pancreatitis documented in this encounter Results * TRIGLYCERIDE (12/10/2018 11:42 AM CDT) Pathologist [facility] TRIGLYCERIDE 88 <150 mg/dL 12/10/2018 12:16 PM CDT [facility] Blood Collection / Unknown 12/10/2018 11:42 AM CDT 12/10/2018 11:42 AM CDT Narrative [facility] - 12/10/2018 12:16 PM CDT TRIGLYCERIDES ? mg/dL Normal ?< 150 Borderline High ?150 - 199 High ? 200 - 499 Very High ? >= 500 Based on AHA/NCEP Guidelines. Alize Arteaga MD CHEMISTRY ORDER OS[facility]# [id number] [address] [place] [address] * (ABNORMAL) TRIGLYCERIDE (12/10/2018 10:06 AM CDT) TRIGLYCERIDE 197(H) <150 mg/dL 12/10/2018 11:23 AM CDT [employer] [facility] Blood Collection / Unknown 12/10/2018 10:06 AM CDT 12/10/2018 10:06 AM CDT [facility] [employer] LABORATORY SERVICES - [facility] - 12/10/2018 11:23 AM CDT TRIGLYCERIDES ? mg/dL Normal ?< 150 Borderline High ?150 - 199 High ? 200 - 499 Very High ? >= 500 Based on AHA/NCEP Guidelines. Alize Arteaga MD CHEMISTRY ORDER OSVALDO [facility] [employer] [facility]# [id number] [address] [place] [address] * (ABNORMAL) CBC WITHOUT DIFFERENTIAL (12/10/2018 10:06 AM CDT) Pathologist [facility] WBC 9.2 4.0 - 9.8 K/uL 12/10/2018 10:11 AM CDT [employer] LABORATORY SERVICES [facility] RBC 3.95 3.90 - 4.90 M/uL 12/10/2018 10:11 AM [facility] [employer] LABORATORY SERVICES - [facility] HEMOGLOBIN 11.9 11.8 - 14.8 g/dL 12/10/2018 10:11 AM CD [employer] SERVICES - [facility] HEMATOCRIT 35.4(L) 35.5 - 44.0 % 12/10/2018 10:11 AM CD [employer] SERVICES - [facility] MCV 89.6 82.0 - 99.0 fL 12/10/2018 10:11 AM CDT [employer] SERVICES - [facility] MCH 30.1 27.2 - 32.6 pg 12/10/2018 10:11 AM CDT [employer] LABORATORY SERVICES - [facility] MCHC 33.6 31.5 - 35.5 g/dL 12/10/2018 10:11 AM CD [facility] - [facility] PLATELETS 241 140 - 350 K/uL 12/10/2018 10:11 AM CDT [facility] LABORATORY SERVICES - [facility] MPV 8.9(L) 9.3 - 12.4 fL 12/10/2018 10:11 AM CDT [facility] LABORATORY SERVICES - [facility] RDW 15.1(H) 11.5 - 14.5 % 12/10/2018 10:11 AM T [employer] LABORATORY SERVICES - [facility] RDW-STDEV 50.4(H) 37.1 - 48.7 fL 12/10/2018 10:11 AM CDT [facility] LABORATORY SERVICES - [facility] Blood Collection / Unknown 12/10/2018 10:06 AM CDT 12/10/2018 10:07 AM CDT Alize Arteaga MD HEMATOLOGY YONI SERRANO [facility] LABORATORY SERVICES - [facility]# [id number] [address] [place] [address] documented in this encounter Visit Diagnoses Diagnosis [...] IV, INTRA-PROCEDURE ONCE, 1 dose, Starting on Sat12/10/18 at 1000, Until Sat12/10/18 at 1118, Routine New Bag 12/10/2018 10:23 AM CDT 2,000 mg 130.9 mL/hr heparin injection 2,000 Units 2,000 Units, See Admin Instructions, POST-PROCEDURE ONCE, 1 dose, Starting on Sat12/10/18 at 1100, Until Sat12/10/18 at 1148, Routine, DO NOT DISPENSE Given 12/10/2018 11:48 AM CDT 2,000 Units Chest, Right heparin injection 2,000 Units 2,000 Units, See Admin Instructions, ONE TIME ONLY, 1 dose, On Sat12/10/18 at 1100, Routine, DO NOT DISPENSE Given 12/10/2018 11:47 AM CDT 2,000 Units Chest, Right documented in this encounter Care Teams Gear Setter Relationship Specialty Start Date End Date Guerrero Middleton PA-C PCP - General Physician Outpatient Program Coordinator 02/13/18 documented as of this encounter
--- OUTSIDE RECORDS SUMMARY | 2024-05-03 20:44 | XMS_ITS | Encounter Summary ---
Author Organization [facility] Address [address] [place] [address] Care Team Providers Care Investment Banking Associate Name Role Phone Guerrero Middleton PA-C Primary Care Provide r Encounter Details Date Type Department Care Team (Latest Contact Info) Description 11/14/2018 9:41 AM CDT - 11/14/2018 11:59 PM T Hospital Encounter [facility] Blood Bank Donor Center [facility] [employer] [address] [place] [address] Marlys Mayer MD [address] [place] [address] Discharge Disposition: Home or Self Care Social [...] How often do you attend chur or sikh services? Never 08/21/2018 Do you [...] Sign Reading Time Taken Comments Blood Pressure 96/63 11/14/2018 12:11 PM CDT Pulse 96 11/14/2018 12:11 PM CDT Temperature 36.8 ??C (98.3 ??F) 11/14/2018 12:11 PM C DT Respiratory Rate 14 11/14/2018 12:11 PM CDT Oxygen Saturation - - Inhaled [...] Progress Notes * Alize Arteaga MD - 11/14/2018 5:53 PM CDT CC: ??42 yo female with hypertriglyceridemia associated??with??recurrent necrotizing pancreatitis initiated on prophylactic plasma exchange for prevention of hypertriglyceridemic pancreatitis starting 11/12/18.??(ASFA category III indication for apheresis). ?? HPI: ??Was doing okay in interval since discharge, but feels generally unwell in past few days. Denies abdominal pain, nausea.? PMH: ??Hypertriglyceridemia (associated with prior episodes of pancreatitis, received inpatient plasma exchanges 04/2018, 07/2018 and 09/2018), DM, anxiety, GERG, HLD, hypothyroidism, PCOS ?? Meds: as per EPIC. ?? Exam: ??Patient resting in chair. ??Ports accessed in chest??with clear dressing in place. ??No erythema, induration or drainage observed. ?? Labs: triglycerides??1,842 (pre-procedure) ?? A&P: 1. 42 yo female with??recurrent??hypertriglyceridemic pancreatitis requires prophylactic??plasma exchange. 2. ??We will perform a 1.0 volume plasma exchange with all albumin replacement with 100% fluid balance with 2 g calcium gluconate over the procedure. 3.??Per Drs. Rudd and Moreno,??goal??triglycerides <500. We will obtain triglycerides prior to each procedure. ??We may need to modify plan based on triglyceride results. 4. Patient reports feeling generally unwell and triglycerides are somewhat decreased since last procedure, but still markedly elevated. ??Case discussed with Dr. Rudd today, 11/14/18. We will keep plan to perform twice the week of 11/17/18 (Tu and Th) and once per week x 4 weeks after that. ? Procedure #3: ??Patient still feels generally unwell. No specific nausea or abdominal pain. Discussed with patient importance of eating low fat diet and that plasma exchange does not negate the need to stick to a low fat diet. Patient tolerated the procedure well. ? I have seen and examined the patient, reviewed pertinent notes and records, and remained immediately available throughout the procedure. ?? Alize Arteaga MD, PhD Enchilada Maker, therapeutic apheresis service [phone] * Rosales Tapia RN - 11/14/2018 1:17 PM CDT Plasma exchange completed using the right chest bard ports for access and return. 5% albumin were used as replacement fluids for a 1.0 volume exchange. Procedure completed without issues. Post vitalstaken. Ports deacessed and locked with heparin (see MAR). Dressing clean, dry and intact. Okay per Dr. Arteaga for patient to go home. documented in this encounter Plan of Treatment Upcoming Encounters Date Type Department Care Team (Late st Contact Info) Description 09/14/2024 3:00 PM CDT Office Visit [facility] Heart and Vascular - [facility] [phone] [place] [address] Marlys Mayer MD [address] [place] [address] documented as of this encounter Procedures Procedure Name Priority Date/Time Associated Diagnosis Comments PROTIME-INR Routine 11/14/2018 9:40 AM CDT Metabolic syndrome History of gestational [...] pain Acquired hypothyroidism Recurrent pancreatitis TRIGLYCERIDE Routine 11/14/2018 9:40 AM CDT Metabolic syndrome History of gestational [...] in this encounter Results * (ABNORMAL) TRIGLYCERIDE (11/14/2018 9:40 AM CDT) TRIGLYCERIDE 1,842(H) <150 mg/dL 11/14/2018 11:04 AM CDT [facility] [employer] [facility] Blood Collection / Unknown 11/14/2018 9:40 AM CDT 11/14/2018 10:22 AM CDT [facility] [employer] [facility] - 11/14/2018 11:04 AM CDT TRIGLYCERIDES ? mg/dL Normal ?< 150 Borderline High ?150 - 199 High ? 200 - 499 Very High ? >= 500 Based on AHA/NCEP Guidelines. Alize Arteaga MD CHEMISTRY ORDER OSVALDO [facility] [employer] [facility]# [id number] [address] [place] [address] * PROTIME-INR (11/14/2018 9:40 AM CDT) PROTIME 14.1 12.7 - 15.1 Seconds 11/14/2018 10:36 AM CDT [facility] [employer] [facility] INR 1.1 0.9 - 1.1 11/14/2018 10:36 AM CDT [facility] [employer] [facility] Blood Collection / Unknown 11/14/2018 9:40 AM CDT 11/14/2018 10:22 AM CDT [facility] [employer] [facility] - 11/14/2018 10:36 AM CDT INR Therapeutic Range: Adult: ?? 2.0 - 3.0 for pulmonary embolism or prophylaxis against venous ?thrombosis or systemic embolization. 2.0 - 3.0 for patients with tissue heart valves. 2.5 - 3.5 for patients with mechanical heart valves or post [place]. Pediatric ??(12 years and under): 1.5 - 3.0 Although the target range in children is not well established, ?INR values of 1.5 - 3.0 are recommended for most patients. ?Higher values have been used in children with prosthetic ?cardiac valves and hereditary clotting disorders. (<3 days) therapeutic ranges have not been established. Alize Arteaga MD HEMATOLOGY YONI SERRANO [facility] LABORATORY [facility]# [id number] [address] [place] [address] documented in this encounter Visit Diagnoses Diagnosis [...] IV, INTRA-PROCEDURE ONCE, 1 dose, Starting on Sat11/14/18 at 1000, Until 11/14/18 at 1125, Routine New Bag 11/14/2018 10:55 AM CDT 2,000 mg 240 m L/hr documented in this encounter Care Teams Investment Banking Associate Relationship Specialty Start Date End Date Guerrero Middleton PA-C PCP - General Physician Group Burner Machine 02/13/18 documented as of this encounter
--- OUTSIDE RECORDS SUMMARY | 2024-05-03 20:44 | XMS_ITS | Encounter Summary ---
Author Organization [facility] Address [address] [place] [address] Care Team Providers Care Land Management Supervisor Name Role Phone Guerrero iMddleton PA-C Primary Care Provide r Encounter Details Date Type Department Care Team (Latest Contact Info) Description 11/12/2018 9:25 AM CDT - 11/12/2018 11:59 PM T Hospital Encounter [facility] Blood Bank Donor Center S [facility] [address] [place] [address] Alize Arteaga MD NO ADDRESS ON FILE [...] any clubs o r organizations such as jainism groups, unions, fraternal or athletic groups, or [...] Sign Reading Time Taken Comments Blood Pressure 109/75 11/12/2018 11:18 AM CDT Pulse 94 11/12/2018 11:18 AM CDT Temperature 37.1 ??C (98.7 ??F) 11/12/2018 11:18 AM C DT Respiratory Rate 18 11/12/2018 11:18 AM CDT Oxygen Saturation - - Inhaled [...] Progress Notes * Alize Arteaga MD - 11/12/2018 3:15 PM CDT CC: ??42 yo female with [...] erythema, induration or drainage observed. ?? Labs: WBC??12.0, Hgb 13.4, Hct??37.7, Plt??341, triglycerides??3,936 (pre-procedure) ?? A&P: 1. 42 yo female with recurrent hypertriglyceridemic pancreatitis requires prophylactic plasma exchange. 2. ??We will perform a 1.0 volume plasma exchange with all albumin replacement with 100% fluid balance with 2 g calcium gluconate over the procedure. 3.??Per Drs. Rudd and Moreno, goal triglycerides <500. 4. Patient reports feeling generally unwell and triglycerides are markedly elevated. Case discussedwith Dr. Rudd. Plan to increase frequency of plasma exchanges to get to goal. We will schedule PLEX 11/13/18, 11/14/18 as outpatient, then twice the week of 11/17/18 and once per week x 4 weeks. We will obtain triglycerides prior to each procedure. We may need to modify plan based on triglyceride results. ? Procedure #1: ??Patient tolerated the procedure well. ? I have seen and examined the patient, reviewed pertinent notes and records, and remained immediately available throughout the procedure. ?? Alize Arteaga MD, PhD Slab Inspector, therapeutic apheresis service [phone] * Robyn Hernandez, RN - 11/12/2018 12:57 PM CDT Outpatient plasma apheresis was completed using R bard port. 1.0 volume using 5% Albumin as replacement fluid for a 100% fluid balance. Patient tolerated procedure well. Triglyceride level resulted post procedure. Jenni notified and discussed with pt. Left BDS ambulatory A&O x4. Next procedure is undetermined at this time. documented in this encounter Plan of Treatment Upcoming Encounters Date Type Department Care Team (Late st Contact Info) Description 09/14/2024 3:00 PM CDT Office Visit [facility] [address] [place] [address] Marlys Mayer MD [address] [facility] [address] [place] [address] documented as of this encounter Procedures Procedure Name Priority Date/Time Associated Diagnosis Comments CBC WITHOUT DIFFERENTIAL Routine 11/12/2018 10:10 AM CDT Metabolic syndrome History of gestational [...] pain Acquired hypothyroidism Recurrent pancreatitis TRIGLYCERIDE Routine 11/12/2018 10:08 AM CDT Metabolic syndrome History of gestational [...] encounter Results * (ABNORMAL) CBC WITHOUT DIFFERENTIAL (11/12/2018 10:10 AM CDT) WBC 12.0(H) 4.0 - 9.8 K/uL 11/12/2018 10:18 AM CDT [facility] - [facility] RBC 4.27 3.90 - 4.90 M/uL 11/12/2018 10:18 AM CDT [facility] - [facility] HEMOGLOBIN 13.4 11.8 - 14.8 g/dL 11/12/2018 10:18 AM CDT [email or web address] SERVICES - [facility] HEMATOCRIT 37.7 35.5 - 44.0 % 11/12/2018 10:18 AM CDT [email or web address] SERVICES - [facility] MCV 88.3 82.0 - 99.0 fL 11/12/2018 10:18 AM CDT [email or web address] SERVICES - [facility] MCH 31.4 27.2 - 32.6 pg 11/12/2018 10:18 AM CDT [facility] - [facility] MCHC 35.5 31.5 - 35.5 g/dL 11/12/2018 10:18 AM CDT [email or web address] SERVICES - [facility] PLATELETS 341 140 - 350 K/uL 11/12/2018 10:18 AM CDT [email or web address] SERVICES - [facility] MPV 9.0(L) 9.3 - 12.4 fL 11/12/2018 10:18 AM CDT [email or web address] SERVICES - [facility] RDW 15.5(H) 11.5 - 14.5 % 11/12/2018 10:18 AM CDT [email or web address] SERVICES - [facility] RDW-STDEV 50.1(H) 37.1 - 48.7 fL 11/12/2018 10:18 AM T [email or web address] SERVICES - [facility] Blood Collection / Unknown 11/12/2018 10:10 AM CDT 11/12/2018 10:10 AM CDT Alize Arteaga MD HEMATOLOGY YONI SERRANO [employer] LABORATORY SERVICES [facility]# [id number] [address] [place] [address] * (ABNORMAL) TRIGLYCERIDE (11/12/2018 10:08 AM CDT) TRIGLYCERIDE 3,936(H) <150 mg/dL 11/12/2018 11:19 AM CDT [facility] [employer] [facility] Blood Collection / Unknown 11/12/2018 10:08 AM CDT 11/12/2018 10:09 AM CDT Narrative [facility] LABORATORY [facility] - 11/12/2018 11:19 AM CDT TRIGLYCERIDES ? mg/dL Normal ?< 150 Borderline High ?150 - 199 High ? 200 - 499 Very High ? >= 500 Based on AHA/NCEP Guidelines. Alize Arteaga MD CHEMISTRY ORDER OSVALDO [facility] [employer] [facility]# [id number] [address] [place] [address] documented in this encounter Visit Diagnoses Diagnosis [...] IV, INTRA-PROCEDURE ONCE, 1 dose, Starting on Sat11/12/18 at 1000, Until Sat11/12/18 at 1047, Routine New Bag 11/12/2018 10:17 AM CDT 2,000 mg 240 mL/hr heparin injection 2,000 Units 2,000 Units, IV, ONE TIME ONLY, 1 dose, On Sat11/12/18 at 1200, Routine, PLEASE TUBE TO STATION 516. Given 11/12/2018 11:24 AM CDT 2,000 Units heparin injection 2,000 Units 2,000 Units, IV, ONE TIME ONLY, 1 dose, On Sat11/12/18 at 1200, Routine, PLEASE TUBE TO STATION 516. Given 11/12/2018 11:22 AM CDT 2,000 Units documented in this encounter Care Teams Land Management Supervisor Relationship Specialty Start Date End Date Guerrero Middleton PA-C PCP - General Physician Speech Language Pathologist 02/13/18 documented as of this encounter
--- OUTSIDE RECORDS SUMMARY | 2024-05-03 20:44 | XMS_ITS | Encounter Summary ---
Author Organization [facility] Address [address] [place] [address] Care Team Providers Care Tavern Operator Name Role Phone Guerrero Middleton PA-C Primary Care Provide r Reason for Visit * Reason Onset Date Comments Medication Refill 08/25/2018 Encounter Details Date Type Department Care Team (Late st Contact Info) Description 08/25/[address] [facility] Endocrinology [address] [place] [address] Blake Rudd MD NO ADDRESS ON FILE Hypothyroidism Social History Tobacco Use Types Packs/Day Years [...] * Telephone Encounter - Suze Jackson - 08/28/2018 12:16 PM CDT jamil 04/25/18 cx 07/30/18 did not make f/u will send appt letter * Telephone Encounter - Blake Rudd MD - 08/25/2018 8:02 PM CDT 200mcg * Telephone Encounter - Suze Jackson - 08/25/2018 6:23 PM CDT Pharm sent note requesting refill on synthroid 175mcg daily , the chart has Levothyroxine 200 mcg What is she to have ? documented in this encounter Plan of Treatment Upcoming Encounters Date Type Department Care Team (Late st Contact Info) Description 09/14/2024 3:00 PM CDT Office Visit [facility] Heart and Vascular - [place] [address] [address] [address] [place] [address] Marlys Mayer MD [address] [place] [address] documented as of this encounter Visit Diagnoses Diagnosis Hypothyroidism Unspecified hypothyroidism documented in this encounter Care Teams Tavern Operator Relationship Specialty Start Date End Date Guerrero Middleton PA-C PCP - General Physician Instrumentation And Controls Designer 02/13/18 documented as of this encounter
--- OUTSIDE RECORDS SUMMARY | 2024-05-03 20:44 | XMS_ITS | Encounter Summary ---
Author Organization [facility] Address [address] [place] [address] Care Team Providers Care Engineering Programmer Name Role Phone Guerrero Middleton PA-C Primary Care Provide r Encounter Details Date Type Department Care Team (Latest Contact Info) Description 11/20/2018 9:42 AM CDT - 11/20/2018 11:59 PM T Hospital Encounter [facility] Blood Bank Donor [facility] [address] [place] [address] Marlys Mayer MD [address] [place] [address] Discharge Disposition: Home or Self Care Social [...] How often do you attend chur or taoist services? Never 08/21/2018 Do you [...] Sign Reading Time Taken Comments Blood Pressure 106/72 11/20/2018 11:36 AM CDT Pulse 103 11/20/2018 11:36 AM CDT Temperature 36.8 ??C (98.3 ??F) 11/20/2018 11:36 AM C DT Respiratory Rate 18 11/20/2018 11:36 AM CDT Oxygen Saturation - - Inhaled [...] Progress Notes * Sharri Juarez RN - 11/20/2018 12:15 PM CDT Plasma exchange completed today using R chest BARD ports for access and return. Used 5% Albumin as replacement fluid for a 1.0 volume exchange with a 100% fluid balance. Patient tolerated the procedure well. Discharge instructions given. Patient left BDS department ambulatory and in stable condition. documented in this encounter Plan of Treatment Upcoming Encounters Date Type Department Care Team (Late st Contact Info) Description 09/14/2024 3:00 PM CDT Office Visit [facility] Heart and Vascular - [facility] [address] [place] [address] Marlys Mayer MD [address] [place] [address] documented as of this encounter Procedures Procedure Name Priority Date/Time Associated Diagnosis Comments TRIGLYCERIDE Routine 11/20/2018 9:41 AM CDT Metabolic syndrome History of gestational [...] in this encounter Results * (ABNORMAL) TRIGLYCERIDE (11/20/2018 9:41 AM CDT) TRIGLYCERIDE 1,066(H) <150 mg/dL 11/20/2018 11:22 AM CDT [facility] Blood Collection / Unknown 11/20/2018 9:41 AM CDT 11/20/2018 10:29 AM CDT Narrative [facility] - 11/20/2018 11:22 AM CDT TRIGLYCERIDES ? mg/dL Normal ?< 150 Borderline High ?150 - 199 High ? 200 - 499 Very High ? >= 500 Based on AHA/NCEP Guidelines. David Boyle MD CHEMISTRY ORDERABLE S [facility]# [id number] [address] [place] [place] [address] documented in this encounter Visit Diagnoses Diagnosis [...] INTRA-PROCEDURE ONCE, 1 dose, Starting on Katie 11/20/18 at 0930, Until Sat11/20/18 at 1122, Routine New Bag 11/20/2018 10:20 AM CDT 2,000 mg 240 mL/hr heparin injection 2,000 Units 2,000 Units, Dwell, ONE TIME ONLY, 1 dose, On Katie 11/20/18 at 1000, Routine, Please tube to station 516, blood bank Given 11/20/2018 11:27 AM CDT 2,000 Units Port heparin injection 2,000 Units 2,000 Units, Dwell, ONE TIME ONLY, 1 dose, On Katie 11/20/18 at 1000, Routine, Please tube to station 516, blood bank Given 11/20/2018 11:25 AM CDT 2,000 Units Port documented in this encounter Care Teams Engineering Programmer Relationship Specialty Start Date End Date Guerrero Middleton PA-C PCP - General Physician Awning Frame Maker 02/13/18 documented as of this encounter
--- OUTSIDE RECORDS SUMMARY | 2024-05-03 20:44 | XMS_ITS | Encounter Summary ---
Author Organization [facility] Address [address] [place] [address] Care Team Providers Care Multi Spindle Operator Name Role Phone Guerrero Middleton PA-C Primary Care Provide r Reason for Visit * Reason Onset Date Comments pt in ER 10/28/2018 Encounter Details Date Type Department Care Team (Late st Contact Info) Description 10/28/2018 Telephone [facility] Heart and Vascular At [facility] [address] [place] [phone] Marlys Mayer MD [address] [place] [address] pt in ER Social History Tobacco Use Types Packs/Day Years [...] any clubs o r organizations such as taoism groups, unions, fraternal or athletic groups, or [...] Encounter - Alexandra Kahn RN - 10/28/2018 4:22 PM CDT Returned pt call, she is in [facility] ER. States abdominal pain was bad and Dr. Rudd told her to go to ER. Pt has seen Dr. Arteaga who has her on the schedule for a port in the morning and plasmapheresis after that. Emailed Yadria OLGUIN with above for Dr. Mayer documented in this encounter Plan of Treatment Upcoming Encounters Date Type Department Care Team (Late st Contact Info) Description 09/14/2024 3:00 PM CDT Office Visit [facility] Heart and Vascular - [place] [address] [place] [phone] Marlys Mayer MD [address] [place] [address] documented as of this encounter Visit Diagnoses Not on filedocumented in this encounter Care Teams Multi Spindle Operator Relationship Specialty Start Date End Date Guerrero Middleton PA-C PCP - General Physician Intelligence Support Officer 02/13/18 documented as of this encounter
--- OUTSIDE RECORDS SUMMARY | 2024-05-03 20:45 | XMS_ITS | Encounter Summary ---
Author Organization [facility] Address [address] [place] [address] Care Team Providers Care Electronics Production Supervisor Name Role Phone Guerrero Middleton PA-C Primary Care Provide r Reason for Visit * Reason Onset Date Comments Results 06/19/2018 lipid panel Encounter Details Date Type Department Care Team (Late st Contact Info) Description 06/19/2018 Telephone [facility] Heart and Vascular At [facility] [address] [place] [address] Marlys Mayer MD [address] [place] [address] Results (lipid panel) Social History Tobacco Use Types Packs/Day Years Used Date Smoking Tobacco: Every Day Cigarettes 1 18 Smokeless Tobacco: Never Comments:nicotine patch requ ested Alcohol Use Standard Drinks/Week Comments No 0 (1 standard drink = 0.6 oz pur e alcohol) Sex and Gender Information Value Date Recorded Sex Assigned at Not on file Gender Identity Not on file Sexual Orientation Not on file documented as of this encounter Miscellaneous Notes * Telephone Encounter - Alexandra Kahn RN - 06/19/2018 2:35 PM CLAMP CARRIER OPERATOR Called patient with yesterday's lipid panel results, verbalized understanding. Emailed 3 discharge instructions from hospital, Dr. Mayer's notes, lipid panel results to [email or web address]. Transferred to [facility] phone for appointment P CARRIER OPERATOR * Telephone Encounter - Thuy Campos R - 06/19/2018 2:06 PM CST Patient called for the results from blood work she had done yesterday. Please contact the patient at [phone] thank you. P CARRIER OPERATOR documented in this encounter Plan of Treatment Upcoming Encounters Date Type Department Care Team (Late st Contact Info) Description 09/14/2024 3:00 PM CDT Office Visit [facility] Heart and Vascular - [place] [phone] [place] [address] Marlys Mayer MD [address] [place], [place] [phone] documented as of this encounter Visit Diagnoses Not on filedocumented in this encounter Care Teams Electronics Production Supervisor Relationship Specialty Start Date End Date Guerrero Middleton PA-C PCP - General Physician Extension Work Instructor 02/13/18 documented as of this encounter
--- OUTSIDE RECORDS SUMMARY | 2024-05-03 20:45 | XMS_ITS | Encounter Summary ---
Author Organization [facility] Address [address] [place] [address] Care Team Providers Care State Trooper Name Role Phone Guerrero Middleton PA-C Primary Care Provide r Encounter Details Date Type Department Care Team ([facility] Contact Info) Description 06/18/2018 Orders Only [facility] Admitting [address] [place] [phone] Marlys Mayer MD [address] [place], [place] [phone] Social History Tobacco Use Types Packs/Day Years [...] Encounters Date Type Department Care Team (Late Contact Info) Description 09/14/2024 3:00 PM CDT Office Visit [facility] Heart and Vascular - [facility] [address] [place] [address] Marlys Mayer MD [address] [place], [place] [phone] documented as of this encounter Visit Diagnoses Not on filedocumented in this encounter Care Teams State Trooper Relationship Specialty Start Date End Date Guerrero Middleton PA-C PCP - General Physician Rockboard Lather 02/13/18 documented as of this encounter
--- OUTSIDE RECORDS SUMMARY | 2024-05-03 20:45 | XMS_ITS | Encounter Summary ---
Author Organization [facility] Address [address] [place] [address] Care Team Providers Care Supervisor Trust Accounts Name Role Phone Guerrero Middleton PA-C Primary Care Provide r Encounter Details Date Type Department Care Team (Latest Contact Info) Description 06/18/2018 10:46 AM PEDIATRIC ORTHODONTIST - 06/18/2018 11:59 PM PEDIATRIC ORTHODONTIST Hospital Encounter [facility] Services [address] [place] [address] Marlys Mayer MD [address] [place] [address] Discharge Disposition: Home or Self Care Social [...] by mouth 2 times daily. 06/05/2018 09/26/2023 dicyclomine (BENTYL) 10 mg capsule Take 1 Capsule by mouth 4 times daily. 15 Capsule 06/18/2018 08/03/2018 metFORMIN (GLUCOPHAGE) 500 mg tablet Take 2 [...] needed for nausea/vomiting. 30 Tablet 05/21/2018 09/26/2023 oxyCODONE-acetaminop hen (PERCOCET) 5-325 mg tablet Take 1 tablet by mouth every 4 hours as needed for pain. Max Daily Amount: 6 Tablets 15 Tablet 05/21/2018 07/03/2018 levothyroxine 200 mcg tabletIndications:Hy pothyroidism Take 1 Tablet by mouth daily without food in the morning 30 minutes before eating anything. 30 Tablet 03/09/2018 08/28/2018 insulin glargine (LANTUS) 100 unit/mL injection Inject 35 Units by subcutaneous injection 2 times daily. 35 units in the AM 35 units in the PM 12/14/2019 pantoprazole (PROTONIX) 40 mg Tablet, Delayed Release (E.C.) Take 40 mg by mouth 2 times daily . 09/26/2023 Pdmnz2-[id number]-E-F A-Fish Oil [phone] hz-od-[id number]-mcg Capsule Take 2 Caplets by mouth 2 times daily. 120 Capsule 3 12/10/2017 08/03/2018 spironolactone (ALDACTONE) 25 mg tablet Take 25 mg by mouth daily. 02/04/2019 rosuvastatin (CRESTOR) 20 mg tablet Take 20 mg by mouth daily at bedtime. 09/19/2023 niacin (NIACOR) 500 mg tablet Take 500 mg by mouth 2 times daily. 10/02/2018 LORazepam (ATIVAN) 1 mg tablet Take 1 [...] Vascular - [facility] [address] [place] [address] Marlys Mayer MD [address] [place] [address] documented as of this encounter Procedures Procedure Name Priority Date/Time Associated Diagnosis Comments LIPID PANEL Stat 06/18/2018 10:48 AM PEDIATRIC ORTHODONTIST Hypertriglyceridemia documented in this encounter Results * (ABNORMAL) LIPID PANEL (06/18/2018 10:48 AM PEDIATRIC ORTHODONTIST) CHOLESTEROL 334(H) <200 mg/dL 06/18/2018 11:51 AM [facility] [employer] [facility] TRIGLYCERIDE 860(H) <150 mg/dL 06/18/2018 11:51 AM [facility] [employer] [facility] HDL 36(L) 40 - 59 mg/dL 06/18/2018 11:51 AM [facility] [employer] [facility] LDL CALCULATED <100 mg/dL 06/18/2018 11:51 AM [facility] [employer] [facility] Comment:Calculated LDL is no t accurate when the Triglyceride value exceeds 400. NON-HDL CHOLESTEROL 298(H) <130 mg/dL 06/18/2018 11:51 AM [facility] [employer] [facility] Blood Venipuncture / Unknown 06/18/2018 10:48 AM [facility] 06/18/2018 10:54 AM [facility] [employer] [facility] - 06/18/2018 11:51 AM [facility] TOTAL CHOLESTEROL ??mg/dL ??Desirable <200 ??Borderline high [...] Guidelines Reference Ranges for Lipid Panels (NCEP/AMA) Marlys Mayer MD CHEMISTRY ORDERABLES Performing Organization Address City/State/[facility] Co de Phone Number [facility]# [id number] [address] [place] [address] documented in this encounter Visit Diagnoses Diagnosis Hypertriglyceridemia Pure hyperglyceridemia documented in this encounter Care Teams Supervisor Trust Accounts Relationship Specialty Start Date End Date Guerrero Middleton PA-C PCP - General Physician Angiography Nurse 02/13/18 documented as of this encounter
--- OUTSIDE RECORDS SUMMARY | 2024-05-03 20:45 | XMS_ITS | Encounter Summary ---
Author Organization [facility] Address [address] [place] [address] Care Team Providers Care Commodities Broker Name Role Phone Guerrero Middleton PA-C Primary Care Provide r Reason for Visit * Reason Onset Date Comments Erroneous encounter-disregard 06/16/2018 Encounter Details Date Type Department Care Team ([facility] Contact Info) Description 06/16/[address] [facility] Heart and Vascular At [address] [place] [phone] Marlys Mayer MD [address] [place] [address] [address] [place], [place] [phone] Erroneous encounter-disregard Social History Tobacco Use Types [...] [facility] Heart and Vascular - [facility] [phone] [address] [place] [address] Marlys Mayer MD [address] [place], [place] [phone] documented as of this encounter Visit Diagnoses Not on filedocumented in this encounter Care Teams Commodities Broker Relationship Specialty Start Date End Date Guerrero Middleton PA-C PCP - General Physician Timber Cutter 02/13/18 documented as of this encounter
--- OUTSIDE RECORDS SUMMARY | 2024-05-03 20:45 | XMS_ITS | Encounter Summary ---
Author Organization [facility] Address [address] [place] [address] Care Team Providers Care Overseamer Name Role Phone Guerrero Middleton PA-C Primary Care Provide r Reason for Visit * Reason Onset Date Comments Erroneous encounter-disregard 06/04/2018 Encounter Details Date Type Department [facility] Description 06/04/2018 Telephone [facility] Heart and Vascular At [address] [place] [phone] Marlys Mayer MD [address] [place] [address] [address] [place], [place] [phone] Erroneous encounter-disregard Social History Tobacco Use Types [...] [facility] Heart [facility] - [facility] [address] [address] [place] [address] Marlys Mayer MD [address] [facility] [address] [facility] [address] [place], [place] [phone] documented as of this encounter Visit Diagnoses Not on filedocumented in this encounter Care Teams Overseamer Relationship Specialty Start Date End Date Guerrero Middleton PA-C PCP - General Physician Accountant Tax 02/13/18 documented as of this encounter
--- OUTSIDE RECORDS SUMMARY | 2024-05-03 20:45 | XMS_ITS | Encounter Summary ---
Author Organization [facility] Address [address] [place] [address] Care Team Providers Care Preventive Maintenance Engineer Name Role Phone Guerrero Middleton PA-C Primary Care Provide r Reason for Visit * Reason Onset Date Comments Needs Appointment 05/22/2018 Hospital f/u n eeded Encounter Details Date Type Department Care Team (Late st Contact Info) Description 05/22/2018 Telephone [facility] Heart and Vascular At [facility] [address] [place] [address] Marlys Mayer MD [address] [place] [address] [address] [place] [address] Needs Appointment (Hospital f/u needed) Social History Tobacco Use Types Packs/Day Years [...] encounter Miscellaneous Notes * Telephone Encounter - Tita Jessica RMA - 05/22/2018 4:45 PM MANAGER RENEWABLE ENERGY Appointment scheduled. GER RENEWABLE ENERGY * Telephone Encounter - Jacklyn Reynolds - 05/22/2018 3:02 PM CST Call from patient requesting an appt within 2-3 days as per her discharge instructions from the hospital. She was admitted w/pancreatitis, triglycerides were high. Patient taking it easy since discharge. Please advise her at /pr GER RENEWABLE ENERGY documented in this encounter Plan of Treatment Upcoming Encounters Date Type Department Care Team (Late st Contact Info) Description 09/14/2024 3:00 PM CDT Office Visit [facility] Heart and Vascular - [place] [address] [place] [address] Marlys Mayer MD [address] [place], [place] [phone] documented as of this encounter Visit Diagnoses Not on filedocumented in this encounter Care Teams Preventive Maintenance Engineer Relationship Specialty Start Date End Date Guerrero Middleton PA-C PCP - General Physician Gearman 02/13/18 documented as of this encounter
--- OUTSIDE RECORDS SUMMARY | 2024-05-03 20:45 | XMS_ITS | Encounter Summary ---
Author Organization [facility] Address 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 Office Visit [facility] At [address] [place] [phone] Marlys Mayer MD [address] [place] [address] [address] [place] [address] Hypertriglyceridemia (Primary Dx); Metabolic syndrome; PCOS (polycystic ovarian syndrome); Type 2 diabetes mellitus without complication, with long-term current use of insulin; Left upper quadrant pain; Obesity (BMI 30.0-34.9) Social History Tobacco Use Types Packs/Day Years [...] Sign Reading Time Taken Comments Blood Pressure 124/72 06/18/2018 11:25 AM COAT HANGER SHAPER MACHINE OPERATOR Pulse 100 06/18/2018 11:25 AM COAT HANGER SHAPER MACHINE OPERATOR Temperature 36.5 ??C (97.7 ??F) 06/18/2018 1 1:25 AM COAT HANGER SHAPER MACHINE OPERATOR Respiratory Rate - - Oxygen Saturation 97% 06/18/2018 11: 25 AM COAT HANGER SHAPER MACHINE OPERATOR Inhaled Oxygen Concentration - - Weight 92.9 kg (204 lb 12.8 oz) 019 11:25 AM COAT HANGER SHAPER MACHINE OPERATOR Height 165.1 cm (5' 5 ) 06/18/2018 11:2 5 AM COAT HANGER SHAPER MACHINE OPERATOR Body Mass Index 34.08 06/18/2018 11:25 AM COAT HANGER SHAPER MACHINE OPERATOR documented in this encounter Progress Notes * Marlys Mayer MD - 06/18/2018 11:43 AM CST [facility] Follow-up Visit Casandra Jones, a 42 y.o. female returns for follow-up of these problems: ICD-10-CM ICD-9-CM 1. Hypertriglyceridemia E78.1 272.1 2. Metabolic syndrome E88.81 277.7 3. PCOS (polycystic ovarian syndrome) E28.2 256.4 4. Type 2 diabetes mellitus without complication, with long-term current use of insulin E11.9 250.00 Z79.4 V58.67 5. Left upper quadrant pain R10.12 789.02 6. Obesity (BMI 30.0-34.9) E66.9 278.00 Since last visit on 05/14/2016: Hospitalizations: 05/16 to 05/21 at [facility] for abdominal pain and very high triglycerides treated with pheresis, 06/02 to 06/05/18 at [facility] for abdominal pain, no pheresis or imaging on this admission Procedures or surgeries: plasmapheresis in Apr Cardiac symptoms: Continues to have low grade abdominal pain, nausea, no vomiting.Reports that she follows a healthy diet-eating Hello Fresh, no soda, no alcohol. Denies chest pain, PND, orthopnea, edema,palpitations, syncope or near syncope. Medications: No new medications Side effects: None reported Current Outpatient Prescriptions Medication Sig Dispense Refill ??? metFORMIN (GLUCOPHAGE) 500 mg tablet Take 2 Tablets by mouth 2 times daily with meals. 60 Tablet 0 ??? dicyclomine (BENTYL) 10 mg capsule Take 1 Capsule by mouth 4 times daily. 15 Capsule 0 ??? insulin aspart (NovoLOG) 100 unit/mL injection Inject 1 Units by subcutaneous injection AM : 14u Lunch: 16 u PM : 22 u . ??? pscuawt-topwhn-acexlilm DR TING) 60-12-38 capsule Take 2 Capsules by mouth 4 times daily withmeals and at bedtime. ??? ondansetron (ZOFRAN ODT) 4 mg Tablet, Rapid Dissolve Dissolve 1 tablet on top of tongue, then swallow with saliva every 6 hours as needed for nausea/vomiting. 30 Tablet 0 ??? oxyCODONE-acetaminophen (PERCOCET) 5-325 mg tablet Take 1 tablet by mouth every 4 hours as needed for pain. Max Daily Amount: 6 Tablets 15 Tablet 0 ??? levothyroxine 200 mcg tablet Take 1 Tablet by mouth daily without food in the morning 30 minutes before eating anything. 30 Tablet 0 ??? insulin glargine (LANTUS) 100 unit/mL injection Inject 28 Units by subcutaneous injection 2 times daily 28 units in the AM 38 units in the PM. ??? pantoprazole (PROTONIX) 40 mg Tablet, Delayed Release (E.C.) Take 40 mg by mouth 2 times daily . ??? traZODone (DESYREL) 100 mg tablet Take 100 mg by mouth. ??? Cakus3-[id number]-E-FA-Fish Oil [phone] el-wj-[id number] Capsule Take 2 Caplets by mouth 2 times daily. 120 Capsule 3 ??? spironolactone (ALDACTONE) 25 mg tablet Take 25 mg by mouth daily. ??? rosuvastatin (CRESTOR) 20 mg tablet Take 20 mg by mouth daily at bedtime. ??? niacin (NIACOR) 500 mg tablet Take 500 mg by mouth 2 times daily. ??? LORazepam (ATIVAN) 1 mg tablet Take [...] HYSTERECTOMY partial due to endometriosis 2006 ??? CO ESOPHAGOGASTRODUODENOSCOPY TRANSORAL DIAGNOSTIC N/A 03/08/2018 ESOPHAGOGASTRODUODENOSCOPY performed by Ceasar Vega MD at [facility] Social History Social History ??? Marital status: Spouse name: N/A ??? Number of children: N/A ??? Years of education: N/A Occupational History ??? [employer] Social History Main Topics ??? Smoking status: Current Every Day Smoker Packs/day: 1.00 Years: 18.00 Types: Cigarettes ??? Smokeless tobacco: Never Used Comment: nicotine patch requested ??? Alcohol use No ??? Drug use: No ??? Sexual activity: Yes Partners: Male Other Topics Concern ??? Not on file Social History Narrative Merged History Encounter ROS General- +15 lb weight gain since 05/19/18 Endo-without polyuria, polydipsia, hot or cold intolerance Pulmonary-without cough, SOB GI-without abdominal pain, constipation, diarrhea -without dysuria, hematuria MS-without myalgia Heme- without excessive bruising Neuro/psych-without sx of depression Physical Exam BP 124/72 Pulse 100 Temp 97.7 ??F (36.5 ??C) (Temporal) Ht 5' 5 (1.651 m) Wt 92.9 kg (204 lb 12.8 oz) SpO2 97% BMI 34.08 kg/m?? Wt Readings from Last 3 Encounters: 06/18/18 92.9 kg (204 lb 12.8 oz) 06/03/18 90.5 kg (199 lb 8 oz) 05/19/18 85.7 kg (189 lb) General-No acute distress, alert, oriented Neck- without JVD, thyroid not enlarged Lungs-Clear to auscultation CV-Regular rate and rhythm, without murmer, gallop or rub. Without carotid bruits . Abdomen-soft, Mild tenderness in LUQ Extremeties-Without edema. Distal pulses normal. Normal range of motion. Normal muscle strength Lab Results Component Value Date/Time CHOLTOT 505 (H) 05/16/2018 09:38 PM CHOLTOT 623 (H) 05/14/2018 12:48 PM CHOLTOT 158 04/12/2018 06:17 AM HDL 05/16/2018 09:38 PM Comment: Measured HDL is not accurate when the Triglyceride value exceeds 1200. HDL 05/14/2018 12:48 PM Comment: Measured HDL is not accurate when the Triglyceride value exceeds 1200. HDL 16 (L) 04/12/2018 06:17 AM LDLCALC 05/16/2018 09:38 PM Comment: Calculated LDL is not accurate when the Triglyceride value exceeds 400. LDLCALC 05/14/2018 12:48 PM Comment: Calculated LDL is not accurate when the Triglyceride value exceeds 400. LDLCALC 04/12/2018 06:17 AM Comment: Calculated LDL is not accurate when the Triglyceride value exceeds 400. LDLDIRECT 110 08/10/2011 07:21 AM TRIGLYCERIDE 421 (H) 06/05/2018 05:41 AM TRIGLYCERIDE 532 (H) 06/04/2018 04:57 PM TRIGLYCERIDE 628 (H) 06/04/2018 04:40 AM Impression ICD-10-CM ICD-9-CM 1. Hypertriglyceridemia E78.1 272.1 2. Metabolic syndrome E88.81 277.7 3. PCOS (polycystic ovarian syndrome) E28.2 256.4 4. Type 2 diabetes mellitus without complication, with long-term current use of insulin E11.9 250.00 Z79.4 V58.67 5. Left upper quadrant pain R10.12 789.02 6. Obesity (BMI 30.0-34.9) E66.9 278.00 Plan Discussed TLC. Despite following what she feels is healthy diet, no weight loss Diet and exercise, weight loss are essential for improve BS and triglyerides 10-15 lb weight loss recommended Blood sugars do seem to be lower but no recent hemoglobin A1c Medications: Continue current medications Diagnostic Tests: Lipid panel pending, stress echo ordered since she has family hx of Premature CADand needs to exercise Follow-up: Next OV In July sooner if new or worsening cardiac symptoms We will send her medical records to an director talent acquisition at [facility] for evaluation HANGER SHAPER MACHINE OPERATOR * Tita Jessica, A - 06/18/2018 11:28 AM CST Follow Up Casandra reports headache, nausea, dizziness, stomach pains, fatigue. HANGER SHAPER MACHINE OPERATOR documented in this encounter Plan of Treatment Upcoming Encounters Date Type Department Care Team (Late st Contact Info) Description 09/14/2024 3:00 PM CDT Office Visit [facility] - [place] [address] [id number] [address] [place] [address] Marlys Mayer MD [address] [place] [address] documented as of this encounter Visit Diagnoses Diagnosis Hypertriglyceridemia- Primary Pure hyperglyceridemia Metabolic syndrome Dysmetabolic Syndrome X PCOS (polycystic ovarian syndrome) Polycystic ovaries Type 2 diabetes mellitus without complication, with long-term current use of insulin Left upper quadrant pain Abdominal pain, left upper quadrant Obesity (BMI 30.0-34.9) Obesity, unspecified documented in this encounter Care Teams Merchandise Flow Manager Relationship Specialty Start Date End Date Guerrero Middleton PA-C PCP - General Physician Materials Specialist 02/13/18 documented as of this encounter
--- OUTSIDE RECORDS SUMMARY | 2024-05-03 20:45 | XMS_ITS | Encounter Summary ---
Author Organization [facility] Address [address] [place] [address] Care Team Providers Care Executive Team Leader Name Role Phone Guerrero Middleton PA-C Primary Care Provide r Reason for Visit * Reason Comments Abdominal Pain Pt to ED w/ c/o abdo minh pain x2 days that has worsened gradually. +N/V x3, +abdominal cramping, +CORTES, +dizziness. Pt took 1 zofran this afternoon w/out relief. Pt reporting hx of hypertriglyceridema w/ similar s/s. * Auth/Cert Specialty Diagnoses / Procedures Referred By Contac t Referred To Contact [facility] Medical Surgical [address] [place] [address] Referral ID Status Reason Start Date Expiration Date Visits Re quested Visits Authorized [id number] 1 1 Encounter Details Date Type Department Care Team (Latest Contact Info) Description 07/29/2018 11:26 PM CDT - 08/03/2018 2:14 PM CDT Hospital Encounter [facility] Oncology [address] [place] [address] Jam Martinez MD [address] [facility] [place] [address] [place] [address] [place] [address] Sanjuana Sellers MD [address] [place] [address] Type 2 diabetes mellitus without complication, with long-term current use of insulin Discharge Disposition: Home or Self Care Social [...] Sign Reading Time Taken Comments Blood Pressure 107/52 08/03/2018 3:57 AM CDT Pulse 73 08/03/2018 3:57 AM CDT Temperature 36.9 ??C (98.5 ??F) 08/03/2018 3:57 AM CD T Respiratory Rate 18 08/03/2018 3:57 AM CDT Oxygen Saturation 96% 08/03/2018 3:57 AM CDT Inhaled Oxygen Concentration - - Weight 95.3 kg (210 lb) 08/01/2018 6:00 PM CDT Height 165.1 cm (5' 5 ) 07/30/2018 3:52 AM CDT Body Mass Index 34.95 07/30/2018 3:52 AM CDT documented in this encounter Discharge Summaries * Sanjuana Sellers MD - 08/03/2018 10:35 AM CDT [facility] Adult Hospitalist Discharge Summary Casandra Doss 42 y.o. female 1975 CSN: [id number] Date of Admission: 07/29/2018 Date of Discharge: 08/03/2018 Discharging Physician: SANJUANA SELLERS MD LOS: 4 days PCP: Guerrero Middleton PA-C Activity: activity as tolerated. Dispo: home Diet: DIET DIABETIC 1800 KCAL,; 40 GM Fat (Low fat), Code Status at Discharge: Full Code Wound Care: None needed Admitting Dx: Abdominal pain Nausea Vomiting Discharge Diagnoses: Active Problems: Metabolic syndrome PCOS (polycystic ovarian syndrome) Hypothyroidism Chylomicronemia syndrome Hypertriglyceridemia Tobacco use Type 2 diabetes mellitus without complication, with long-term current use of insulin GERD (gastroesophageal reflux disease) History of plasmapheresis Mixed hyperlipidemia History of pancreatitis Discharge medications and new prescriptions: Medication List CONTINUE taking these medications citalopram 40 mg tablet Commonly known as: CeleXA Take 40 mg by mouth daily at bedtime. Refills: 0 CREON 60-12-38 capsule Take 2 Capsules by mouth 4 times daily with meals and at bedtime. Refills: 0 Generic drug: lfjbqve-faurfv-nqwsbnza DR dicyclomine 10 mg capsule Commonly known [...] 30 minutes before eating anything. Signed by: Alize Morel DO Quantity: 30 Tablet Refills: 0 LORazepam 1 mg tablet Commonly known as: ATIVAN Take 1 mg by mouth 2 times daily as needed for Anxiety . Refills: 0 metFORMIN 500 mg tablet Commonly known as: GLUCOPHAGE Take 2 Tablets by mouth 2 times daily with meals. Signed by: Rosalia Thurman MD Quantity: 60 Tablet Refills: 0 niacin 500 mg tablet Commonly known as: NIACOR Take 500 mg by mouth 2 times daily. Refills: 0 omega-3 fatty acids-fish oil 300-1,000 [...] tablet Commonly known as: PERCOCET Take 1 tablet by mouth every 4 hours as needed for pain. Max Daily Amount: 6 Tablets Signed by: SANJUANA SELLERS MD Quantity: 20 Tablet Refills: 0 pantoprazole 40 [...] . Refills: 0 STOP taking these medications [id number] Oil [phone] [id number] Capsule Where to Get Your Medications These medications were sent to [place] [id number] ?? dicyclomine 10 mg capsule ?? oxyCODONE-acetaminophen 5-325 mg tablet Consultants: IP CONSULT TO ENDOCRINOLOGY IP CONSULT TO IV TEAM Significant Diagnostic Studies This Admission: ?? CTA chest abd and pelvis HISTORY: Chest pain and left upper quadrant pain. History of pancreatitis. Back and shoulder pain. ?? COMPARISON: 04/10/2018 ?? TECHNIQUE: Multidetector helical scanning of the thorax was performed with 1.25 mm axial reconstructions. Pre- and postcontrast scanning is performed to optimize bolus timing. Maximum intensity pixel (MIP) reformats were done through the pulmonary arteries in the coronal and sagittal planes. ? CONTRAST: IOPAMIDOL 61 % INTRAVENOUS SOLUTION Given:120 mL ?? FINDINGS: ?? CTA CHEST: No discrete pulmonary artery filling defects identified to suggest the presence of acute pulmonary embolism. There is no evidence of aortic dissection or aneurysm. Heart and great vessels are normal. No mediastinal mass or adenopathy is seen. Dependent atelectatic changes are present bilaterally which are most notable in the lower lobes but also involve the upper lobes. No pneumothorax or pleural effusion is present. The bony chest wall is intact. ? IMPRESSION: 1. No evidence of acute pulmonary embolism or aortic pathology. 2. Bilateral dependent atelectatic changes. ?? CT ABDOMEN AND PELVIS: The liver, spleen, pancreas and adrenal glands are unremarkable. The gallbladder and biliary tree are normal. There is slight prominence of the renal collecting systems which remain stable. This may represent the presence of extrarenal pelves. No renal perfusion defect is appreciated. The urinary bladder is normal. ?? There is no evidence of bowel obstruction, free intraperitoneal air or ascites. A right adnexal cyst measures 2.5 x 2.0 cm with a density value of 3HU on image 138 of series 10. The left ovary is normal. No free pelvic fluid or adenopathy is seen. Osseous structures are intact ?? IMPRESSION: 1. Right adnexal cyst measuring 2.5 cm, likely physiologic. 2. No evidence of peripancreatic inflammation. Labs from this Hospitalization Needing Follow Up: ?? None Discharge Lab Data: Lab Results Component Value Date/Time WBC 6.4 08/02/2018 04:50 AM HEMOGLOBIN 11.3 (L) 08/02/2018 04:50 AM HEMATOCRIT 34.8 (L) 08/02/2018 04:50 AM PLATELETS 180 08/02/2018 04:50 AM SODIUM 140 08/03/2018 04:31 AM CHLORIDE 102 08/03/2018 04:31 AM POTASSIUM 3.6 08/03/2018 04:31 AM CO2 28 08/03/2018 04:31 AM BUN 6 08/03/2018 04:31 AM CREATININE 0.62 08/03/2018 04:31 AM GLUCOSE 151 (H) 08/03/2018 04:31 AM INR 1.0 07/31/2018 09:36 AM AST 14 08/02/2018 04:50 AM ALT 9 08/02/2018 04:50 AM CRP 3.0 06/29/2018 08:17 PM Discharge Exam: BP 107/52 (BP Location: Right arm, Patient Position (BP): Supine) Pulse 73 Temp 98.5 ??F (36.9 ??C) (Oral) Resp 18 Ht 5' 5 (1.651 m) Wt 95.3 kg (210 lb) SpO2 96% ? No BMI 34.95 kg/m?? Physical Exam: General appearance alert, cooperative, no distress, appears stated age Lungs clear to auscultation bilaterally Heart regular rate and rhythm, S1, S2 normal, no murmur, click, rub or gallop Abdomen soft, non-tender. Bowel sounds normal. No masses, No organomegaly Extremities extremities normal, atraumatic, no cyanosis or edema Skin Skin color, texture, turgor normal. No rashes or lesions Hospital Course: Pt presented on 07/29/18 to ER with abd pain/nausea and vomiting Patient has a past medical history significant for anxiety, depression, type 2 diabetes mellitus, GERD, hypertriglyceridemia, chylomicrons anemia, pancreatitis, PCOS she presented to the hospital with complaints of worsening abdominal discomfort in the upper abdomen about 8/10 in severity radiatingto the back through the left side of her abdomen. Patient also reported nausea and vomiting, vomited about 4 times yesterday, patient was unable to keep anything down all day, her last meal was at noon on the day of presentation. She also reported a couple of loose stools, watery diarrhea. She denies noticing blood in her vomitus or stool. She denies any fever or sick contacts. She denies any flu symptoms. CT scan of the chest abdomen and pelvis was obtained on admission which showed no evidence of acute changes, she was noted to have a right adnexal cyst about 2.5 cm which was felt to be physiologic. No evidence of acute pancreatitis noted on CT. She is admitted for symptomatic management and further treatment.. Lipid panel revealed hypertriglyceridemia with a triglyceride level of 2792. She was admitted to the hospital, as her triglyceride level was over 2000-blood blank/pathology wascontacted, she underwent plasma exchange catheter placement by interventional radiology and had an treatment of plasma exchange on 07/30/18, the next day her triglycerides were down to 700s. Endocrinology was also consulted, it was felt that the patient does not require any further plasma exchange treatments per endocrinology. She was monitored, was kept n.p.o. for 3 days, on day 4 she was started on liquid diet, diet was advanced to low-fat diabetic diet-she tolerated the diet without any problems though still complains of some mild abdominal discomfort. She had no emesis during the hospital stay. Insulin was adjusted according to blood glucose levels. Patient was felt to be stable for discharge home today. Prescription provided for Bentyl and Percocet at the time of discharge-of note, I checked PDMP website and appeared that her last Percocet prescription was on 07/03/18 for 20 tablets. Hence I gave a prescription for 20 tablets at the time of discharge. Patient was instructed to follow-up with endocrinology next week. Discharge Condition: improving. Follow-up: Guerrero Middleton PA-C in [address] Rudd in 1 week- call and schedule appointment. More than 30 minutes were spent in this discharge activity. Signed: SANJUANA SELLERS MD 08/03/2018, 10:35 AM documented in this encounter Medications at Time of Discharge Medication Sig Dispensed Refills Start Date End Date traZODone (DESYREL) 100 mg tablet Take 100 mg by mouth daily at bedtime . metFORMIN (GLUCOPHAGE) 500 mg tablet Take 500 mg by mouth 2 times daily. 06/05/2018 09/26/2023 omega-3 fatty acids-fish oil 300-1,000 mg Capsule [...] needed for nausea/vomiting. 30 Tablet 05/21/2018 09/26/2023 levothyroxine 200 mcg tabletIndications:Hyp othyroidism Take [...] as of this encounter Progress Notes * Nathalie Walton RN - 08/03/2018 2:13 PM CDT Discharge instructions and home medication list were reviewed with The patient . Refer to dischargeinstructions for a complete list of medications. The patient verbalizes understanding. All questions answered prior to discharge. Casandra Doss was discharged via ambulatory to home. Casandra Doss is accompanied by spouse and will be transported via private vehicle. * Nathalie Walton RN - 08/03/2018 11:37 AM CDT R IJ central catheter removed as ordered per protocol. Pressure dressing applied x5 mins. Petrolatum gauze and tape applied. Tolerated procedure well. * Sanjuana Sellers MD - 08/02/2018 10:24 AM CDT [facility] Adult Hospitalist Progress Note Admit Date: 07/29/2018 Date of Note: 08/02/2018, 10:24 AM LOS: 3 days Previous history of present illness and review of systems have been reviewed today as documented inthe H&P on 07/29/2018; medications, labs, studies, notes, orders and consults have been reviewed.I have reviewed the notes from admission. Subjective: Resting in bed, tolerating clears okay so far. Reports some abdominal discomfort. No nausea or vomiting reported. Blood sugar stable overnight. Objective: BP 100/48 (BP Location: Right arm, Patient Position (BP): Lying left side) Pulse 69 Temp 98.4 ??F (36.9 ??C) (Oral) Resp 16 Ht 5' 5 (1.651 m) Wt 95.3 kg (210 lb) SpO2 95% ? No BMI 34.95 kg/m?? Temp (24hrs), Av.6 ??F (37 ??C), Min:98.3 ??F (36.8 ??C), Max:98.8 ??F (37.1 ??C) Exam: General: Alert, no distress. Heart: Regular rate and rhythm, S1, S2 normal, no murmur, click, rub or gallop. Lungs: Clear to auscultation bilaterally Abdomen: Soft, mildly tender in upper abdomen. Bowel sounds times four. No masses, No organomegaly. Extremities: No clubbing, cyanosis or edema Skin: Skin color, texture, turgor normal. No rashes or lesions. Warm and dry. Head: Normocephalic, atraumatic Neck: Supple, symmetrical, trachea midline, no adenopathy. Neuro: CNII-XII intact. Normal strength, sensation and reflexes throughout. Data Base: I have reviewed all new labs and studies resulted Results for orders placed or performed during the hospital encounter of 07/29/18 (from the past 24 hour(s)) POC GLUCOSE Result Value Ref Range POC GLUCOSE 124 (H) 74 - 99 mg/dL COMMENT, GLU POC Notified RN/MD [employer] DRIVER NAME DULCE AMANDA POC GLUCOSE Result Value Ref Range POC GLUCOSE 145 (H) 74 - 99 mg/dL COMMENT, GLU POC Notified RN/MD [employer] DRIVER NAME AMANDA CARDONA POC GLUCOSE Result Value Ref Range POC GLUCOSE 166 (H) 74 - 99 mg/dL [employer] DRIVER NAME YULIANA GAFFNEY POC GLUCOSE Result Value Ref Range POC GLUCOSE 158 (H) 74 - 99 mg/dL [employer] DRIVER NAME ZAINAB HART POC GLUCOSE Result Value Ref Range POC GLUCOSE 141 (H) 74 - 99 mg/dL COMMENT, GLU POC Notified RN/MD [employer] DRIVER NAME TYE VALDEZ POC GLUCOSE Result Value Ref Range POC GLUCOSE 155 (H) 74 - 99 mg/dL [employer] DR[employer] NAME FANY PAUL CBC WITH DIFFERENTIAL Result Value Ref Range WBC 6.4 4.0 - 9.8 K/uL RBC 3.76 (L) 3.90 - 4.90 M/uL HEMOGLOBIN 11.3 (L) 11.8 - 14.8 g/dL HEMATOCRIT 34.8 (L) 35.5 - 44.0 % MCV 92.6 82.0 - 99.0 fL MCH 30.1 27.2 - 32.6 pg MCHC 32.5 31.5 - 35.5 g/dL RDW 13.5 11.5 - 14.5 % RDW-STDEV 45.8 37.1 - 48.7 fL PLATELETS 180 140 - 350 K/uL MPV 9.5 9.3 - 12.4 fL NEUTROPHILS 57 % LYMPHOCYTES 35 % MONOCYTES 6 % EOSINOPHILS 1 % BASOPHILS 0 % IMMATURE GRANULOCYTES 1 % NEUTROPHIL ABSOLUTE 3.65 1.90 - 7.00 K/uL LYMPHOCYTE ABSOLUTE 2.27 0.70 - 4.50 K/uL MONOCYTE ABSOLUTE 0.38 0.10 - 1.30 K/uL EOSINOPHIL ABSOLUTE 0.05 0.00 - 0.70 K/uL BASOPHILS ABSOLUTE 0.02 0.00 - 0.20 K/uL IMMATURE GRANULOCYTES ABSOLUTE 0.04 (H) 0.00 - 0.03 K/uL COMPREHENSIVE METABOLIC PANEL Result Value Ref Range SODIUM 139 136 - 145 mmol/L POTASSIUM 3.5 3.5 - 5.0 mmol/L CHLORIDE 103 98 - 107 mmol/L CO2 26 22 - 29 mmol/L CALCIUM 8.4 (L) 8.6 - 10.2 mg/dL BUN 3 (L) 6 - 20 mg/dL CREATININE 0.58 0.51 - 0.95 mg/dL GLUCOSE 144 (H) 74 - 99 mg/dL TOTAL PROTEIN 5.8 (L) 6.7 - 8.6 g/dL ALBUMIN 3.8 3.5 - 5.2 g/dL BILIRUBIN TOTAL 0.2 (L) 0.3 - 1.2 mg/dL ALKALINE PHOSPHATASE 39 35 - 104 U/L AST 14 <33 U/L ALT 9 <34 U/L GFR >60 >=60 mL/min/1.73 sq meter GFR, >60 >=60 mL/min/1.73 sq meter ANION GAP 10 8 - 16 mmol/L TRIGLYCERIDE Result Value Ref Range TRIGLYCERIDE 717 (H) <150 mg/dL POC GLUCOSE Result Value Ref Range POC GLUCOSE 136 (H) 74 - 99 mg/dL COMMENT, GLU POC Notified RN/MD [employer] DRIVER NAME TYE VALDEZ POC GLUCOSE Result Value Ref Range POC GLUCOSE 134 (H) 74 - 99 mg/dL COMMENT, GLU POC Notified RN/MD [employer] NAME RAFAELA COOPER Assessment/Plan of Actively Managed Problems 1. Hypertriglyceridemia with chylomicrons anemia syndrome, recurrent pancreatitis and abdominal pain. Underwent plasma exchange on 07/30/18, consulted endocrinology. Endocrine recommends no further plasmapheresis at this time, I discussed with Dr Sood 08/01. Continue niacin, fish oil, fenofibrate and statin. Check daily levels. As her levels are stable and downward trending there is no indicationof IV insulin at this time per endocrine. 2. Abdominal pain-secondary to #1, keep n.p.o. except meds as recommended by endocrine.. Antiemetics as needed for nausea. Pain management p.o. pain medication. Already escalated pain regimen to Percocet 10/325 (patient takes 5/325 at home) add on oxycodone as needed for breakthrough pain.. Continue Bentyl as needed. Avoid IV narcotics. Advance diet as tolerated. Low-fat and diabetic diet. 3. Hypotension-noted on 07/30 felt to be secondary to IV morphine. 4. Metabolic syndrome-noted, endocrinology consulted, she follows with endocrine as outpatient. 5. PCOS (polycystic ovarian syndrome)-aware. 6. 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 7. Chylomicronemia syndrome-noted, see #1 8. Tobacco use-cessation counseling 9. Type 2 diabetes mellitus without complication, with long-term current use of insulin discontinueIV fluids if tolerating p.o. Resume Lantus at low-dose 10 units twice daily. Sliding scale insulin. 10. GERD (gastroesophageal reflux disease)-PPI 11. History of pancreatitis-noted, CT did not reveal any evidence of acute pancreatitis this time. Continue Creon. 12. Hyponatremia-mild, likely secondary to nausea and vomiting as well as recent diarrhea. Improving. Continue to monitor labs. 13. Constipation-bowel regimen. On senna. Review p.o. Dulcolax is no bowel movement yet. DVT Prophylaxis -Lovenox Pettit catheter:absent Lines: Plasma exchange catheter in the right internal jugular PT POC OT POC Activity Order: Present Activity: in bed (08/02/18916) Current Code Status -Full Code Plan discussed with patient, questions answered. Discussed with patient's nurse. Current Planned Disposition -Home in AM if stable Greater than 30 minutes were spent in patient's care today. More than 50% of the time spent was for the discussion of the test results, diagnosis, prognosis, lab results, plan of care, medication adjustment, discharge planning. This time may also include timespent for family/nursing conference and for discussion with any consultants. SANJUANA SELLERS MD * Lilo Back NP - 08/02/2018 12:43 AM CDT [facility] Called for: pain Last Recorded Vitals: BP 123/67 (BP Location: Right arm, Patient Position (BP): Supine) Pulse 89 Temp 98.7 ??F (37.1 ??C) (Oral) Resp 16 Ht 5' 5 (1.651 m) Wt 95.3 kg (210 lb) SpO2 96% ? No BMI 34.95 kg/m?? Documentation/Intervention/Outcome: Chart reviewed. Hypertriglyceridemia and ABD pain. RN reports patient is c/o pain 8/10 patient is requesting IV morphine. Per hosptialist note from today, patients pain percocet has already been increased to 10/325mg q4h PRN and 5 mg oxycodone has been added q6h PRN for breakthrough pain. Note specifically states to avoid IV narcotics. Patients is not due for percocet or oxycodone until 0200. OK to give 5 mg Oxycodone 1 hour early. Please call back any time if I can be of further assistance. LILO BACK NP Submit an eTicket * Fany Paul GN - 08/01/2018 11:25 PM CDT Undress and Assess performed by the following two coworkers: Admission or upon transfer to: Oncology ~~~~~~~~~~~~~~~~~~~~~~~~~~~~ Is the patient a paraplegic/quadriplegic? No Does the patient have new purple/sissy/dark red over bony prominences? No Does the patient have an ostomy? No Is the length of stay >2 weeks? No ~If ANY answer 'yes'- please consult~ Patient does not have skin breakdown. Location/ Description of breakdown: Wound care consult was not initiated. Protective Dressings Applied to Sacrum and Heels (Mepilex) as per Pathway? none Patient arrived to this room with the following belongings/valuables:(ie:dentures, hearing aids, glasses): N/a Patient arrived to this room with the following medical equipment/devices (ie: insulin pump, home CPAP, walker): N/A All Jewelry removed from patient N/A Disposition of belongings/valuables: Patient has personal belongings * Eliane Rosado MD - 08/01/2018 9:15 PM CDT Chart and labs reviewed. Triglycerides stable around 700 Pt comes to hospital frequently with abdominal pain - requests more morphine often. Lipase normal ,ct scan of abdomen showed no evidence of tomas pancreatic inflammation during this hospital admission. So, no need to repeat plasmapharesis. No insulin drip needed. Continue with current lipid lowering agents. Ok to start clear liquid diet and advance as tolerated. Continue lantus and humalog [facility] qa. Pain control as per [facility] hospitalist. Ok to d/c pt home from endocrine standpoint on current regimen, when pt is otherwise stable. Followup with Dr Martin in 1-2 weeks as outpatient. Above plan discussed with Dr Berman Endocrine will sign off. Thank you for allowing me to participate in the care of this patient. Please feel free to call me if you have any questions. Sincerely, Suzi Rosado MD * Sanjuana Sellers MD - 08/01/2018 11:28 AM CDT [facility] Adult Hospitalist Progress Note Admit Date: 07/29/2018 Date of Note: 08/01/2018, 11:28 AM LOS: 2 days Previous history of present illness and review of systems have been reviewed today as documented inthe H&P on 07/29/2018; medications, labs, studies, notes, orders and consults have been reviewed.I have reviewed the notes from admission. Subjective: Seen and examined this morning, resting in bed. Complains of persistent abdominal discomfort and nausea. No bowel movement since admission. Wondering about plasma exchange again. Remains n.p.o. And is persistently requesting IV morphine. Using Benadryl as needed for ? Itching Objective: BP 124/73 (BP Location: Right arm, Patient Position (BP): Supine) Pulse 82 Temp 98.5 ??F (36.9 ??C) (Axillary) Resp 10 Ht 5' 5 (1.651 m) Wt 93.4 kg (206 lb) SpO2 98% ? No BMI 34.28 kg/m?? Temp (24hrs), Av.4 ??F (36.9 ??C), Min:98 ??F (36.7 ??C), Max:98.6 ??F (37 ??C) Exam: General: Alert, no distress. Heart: Regular rate and rhythm, S1, S2 normal, no murmur, click, rub or gallop. Lungs: Clear to auscultation bilaterally Abdomen: Soft, mildly tender in upper abdomen. Bowel sounds times four. No masses, No organomegaly. Extremities: No clubbing, cyanosis or edema Skin: Skin color, texture, turgor normal. No rashes or lesions. Warm and dry. Head: Normocephalic, atraumatic Neck: Supple, symmetrical, trachea midline, no adenopathy. Neuro: CNII-XII intact. Normal strength, sensation and reflexes throughout. Data Base: I have reviewed all new labs and studies resulted Results for orders placed or performed during the hospital encounter of 07/29/18 (from the past 24 hour(s)) POC GLUCOSE Result Value Ref Range POC GLUCOSE 104 (H) 74 - 99 mg/dL [employer] DRIVER NAME JEFF TORRES POC GLUCOSE Result Value Ref Range POC GLUCOSE 78 74 - 99 mg/dL [employer] DRIVER NAME JEFF TORRES POC GLUCOSE Result Value Ref Range POC GLUCOSE 83 74 - 99 mg/dL [employer] DRIVER NAME JEFF TORRES POC GLUCOSE Result Value Ref Range POC GLUCOSE 98 74 - 99 mg/dL [employer] DRIVER NAME PHYLLIS MADERA POC GLUCOSE Result Value Ref Range POC GLUCOSE 92 74 - 99 mg/dL [employer] DRIVER NAME PHYLLIS MADERA POC GLUCOSE Result Value Ref Range POC GLUCOSE 110 (H) 74 - 99 mg/dL [employer] DRIVER NAME PHYLLIS MADERA CBC WITH DIFFERENTIAL Result Value Ref Range WBC 6.9 4.0 - 9.8 K/uL RBC 3.72 (L) 3.90 - 4.90 M/uL HEMOGLOBIN 11.1 (L) 11.8 - 14.8 g/dL HEMATOCRIT 34.0 (L) 35.5 - 44.0 % MCV 91.4 82.0 - 99.0 fL MCH 29.8 27.2 - 32.6 pg MCHC 32.6 31.5 - 35.5 g/dL RDW 13.8 11.5 - 14.5 % RDW-STDEV 47.2 37.1 - 48.7 fL PLATELETS 170 140 - 350 K/uL MPV 9.2 (L) 9.3 - 12.4 fL NEUTROPHILS 57 % LYMPHOCYTES 36 % MONOCYTES 6 % EOSINOPHILS 1 % BASOPHILS 0 % IMMATURE GRANULOCYTES 0 % NEUTROPHIL ABSOLUTE 3.89 1.90 - 7.00 K/uL LYMPHOCYTE ABSOLUTE 2.47 0.70 - 4.50 K/uL MONOCYTE ABSOLUTE 0.39 0.10 - 1.30 K/uL EOSINOPHIL ABSOLUTE 0.06 0.00 - 0.70 K/uL BASOPHILS ABSOLUTE 0.02 0.00 - 0.20 K/uL IMMATURE GRANULOCYTES ABSOLUTE 0.03 0.00 - 0.03 K/uL COMPREHENSIVE METABOLIC PANEL Result Value Ref Range SODIUM 137 136 - 145 mmol/L POTASSIUM 3.6 3.5 - 5.0 mmol/L CHLORIDE 106 98 - 107 mmol/L CO2 24 22 - 29 mmol/L CALCIUM 8.0 (L) 8.6 - 10.2 mg/dL BUN 3 (L) 6 - 20 mg/dL CREATININE 0.49 (L) 0.51 - 0.95 mg/dL GLUCOSE 106 (H) 74 - 99 mg/dL TOTAL PROTEIN 5.4 (L) 6.7 - 8.6 g/dL ALBUMIN 3.7 3.5 - 5.2 g/dL BILIRUBIN TOTAL 0.2 (L) 0.3 - 1.2 mg/dL ALKALINE PHOSPHATASE 34 (L) 35 - 104 U/L AST 10 <33 U/L ALT 7 <34 U/L GFR >60 >=60 mL/min/1.73 sq meter GFR, >60 >=60 mL/min/1.73 sq meter ANION GAP 7 (L) 8 - 16 mmol/L TRIGLYCERIDE Result Value Ref Range TRIGLYCERIDE 739 (H) <150 mg/dL POC GLUCOSE Result Value Ref Range POC GLUCOSE 125 (H) 74 - 99 mg/dL COMMENT, GLU POC Notified RN/MD [employer] DRIVER NAME AMANDA CARDONA Assessment/Plan of Actively Managed Problems 1. Hypertriglyceridemia with chylomicrons anemia syndrome, recurrent pancreatitis and abdominal pain. Underwent plasma exchange on 07/30/18, consulted endocrinology. Endocrine recommends no further plasmapheresis at this time, I discussed with Dr Sood 08/01. Continue niacin, fish oil, fenofibrate and statin. Check daily levels. As her levels are stable there is no indication of IV insulin at thistime per endocrine. 2. Abdominal pain-secondary to #1, keep n.p.o. except meds as recommended by endocrine.. Antiemetics as needed for nausea. Pain management p.o. pain medication. Already escalated pain regimen to Percocet 10/325 (patient takes 5/325 at home) add on oxycodone as needed for breakthrough pain.. Continue Bentyl as needed. Avoid IV narcotics. Keep NPO for today- consider clears in AM. 3. Hypotension-noted on 07/30 felt to be secondary to IV morphine. 4. Metabolic syndrome-noted, endocrinology consulted, she follows with endocrine as outpatient. 5. PCOS (polycystic ovarian syndrome)-aware. 6. 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 7. Chylomicronemia syndrome-noted, see #1 8. Tobacco use-cessation counseling 9. Type 2 diabetes mellitus without complication, with long-term current use of insulin, on D5 due to low blood glucose, switch to NS if BG above 150. Lantus held for now. Re introduce when diet started. 10. GERD (gastroesophageal reflux disease)-PPI 11. History of pancreatitis-noted, CT did not reveal any evidence of acute pancreatitis this time. Continue Creon. 12. Hyponatremia-mild, likely secondary to nausea and vomiting as well as recent diarrhea. Improving. Continue to monitor labs. Constipation-bowel regimen. On senna. DVT Prophylaxis -Lovenox Pettit catheter:absent Lines: Plasma exchange catheter in the right internal jugular PT POC OT POC Activity Order: Present Activity: in bed (08/01/18 1116) Current Code Status -Full Code Plan discussed with patient, questions answered. Discussed with patient's nurse. Current Planned Disposition -Home pending further improvement in symptoms. Likely weekend/mon. Transfer to [facility] surg floor as no further plasma exchange needed at this time, no plan for insulin drip. Greater than 30 minutes were spent in patient's care today. More than 50% of the time spent was for the discussion of the test results, diagnosis, prognosis, lab results, plan of care, medication adjustment, discharge planning. This time may also include timespent for family/nursing conference and for discussion with any consultants. SANJUANA SELLERS MD * Phyllis Madera RN - 08/01/2018 7:38 AM CDT Pt A&Ox4, complained of abdominal pain and headache, Morphine, Percocet, and Tylenol given per MAR. SBP 80-100's. Pt ambulated once to bathroom without difficulty. No BM this shift, pt denies anynausea or vomiting. * Perfecto Dickinson MD - 08/01/2018 12:45 AM CDT [facility] Called for: Requesting nicotine patch Last Recorded Vitals: BP (!) 92/58 (BP Location: Right arm, Patient Position (BP): Lying right side) Pulse 89 Temp 98.6 ??F (37 ??C) (Oral) Resp 16 Ht 5' 5 (1.651 m) Wt 93.4 kg (206 lb) SpO2 97% ? No BMI 34.28 kg/m?? Documentation/Intervention/Outcome: Chart reviewed. Nicotine patch ordered. Please call back any time if I can be of further assistance. Perfecto Dickinson MD Submit an eTicket * Jeff Torres RN - 07/31/2018 6:56 PM CDT End of Shift Note: Neuro: A&Ox4, slept most of day. C/o abdominal pain and headache. Given Tylenol, Percocet, and Morphine per JUN. Encouraged to take PO meds and limit IV medications. Resp: On RA, clear lung sounds. CV: NSR 80-90's. SBP 100-110's. 1+ edema BUE and BLE. Afebrile. GI: + bowel sounds. NPO. C/o nausea, given zofran and compazine per JUN. Verbalized some relief with medications. : voiding in bathroom. Skin: no new skin breakdown. Labs: BG 78 around 1600. paged, ordered D5NS until BG > 150. Will continue to monitor. * Sanjuana Sellers MD - 07/31/2018 4:16 PM CDT Pt is to remain NPO per Endocrine Pt will need SQ insulin per endocrine Will change to D5NS as BG is running low Once BG is above 150 would change back to NS. I discontinued lantus for now as she is NPO and has lower blood sugars all day so far * Coty Pierson MD - 07/31/2018 3:40 PM CDT Endocrine follow-up note: Casandra Doss is a 42 y.o. female seen for f/u as an inpatient consult for management of hypertriglyceridemia, DM II, h/o pancreatitis, but normal lipase this time. Presents w/ abdominal pain, normal lipase. Has gotten plasmapheresis Patient is currently on IV fluids, NPO, pain management, SQ insulin regimen. Her sugars have been well controlled. Her abdominal pain is still present. Past Medical History: Diagnosis Date ??? Anxiety [...] PCOS (polycystic ovarian syndrome) 05/15/2011 ??? Smoker Social History Social History ??? Marital status: Spouse name: N/A ??? Number of children: N/A ??? Years of education: N/A Occupational History ??? [employer] Social History Main Topics ??? Smoking status: Current Every Day Smoker Packs/day: 1.00 Years: 18.00 Types: Cigarettes ??? Smokeless tobacco: Never Used Comment: nicotine patch requested ??? Alcohol use No ??? Drug use: No ??? Sexual activity: Yes Partners: Male Other Topics Concern ??? Not on file Social History Narrative Merged History Encounter Family History Problem Relation Age of Onset ??? Diabetes Father ??? High Cholesterol Father ??? Hypertension Father ??? Stroke Mother ??? Heart Disease Mother ??? Thyroid Disease Mother ??? High Cholesterol Mother ??? Heart Disease Maternal Grandmother ??? Diabetes Maternal Grandmother ??? Diabetes Paternal Grandmother ??? Diabetes Mother Current Facility-Administered Medications Ordered in Epic Medication Dose Route Frequency Provider Last Rate Last Dose ??? calcium GLUCONATE 2,000 mg in sodium chloride 0.9% 120 mL IVPB 2,000 mg IV Intra-Proc Once Alize Arteaga MD ??? prochlorperazine (COMPAZINE) injection 5 mg 5 mg IV q 4 hour PRN Sanjuana Sellers MD ??? morphine 4 mg/mL injection 3 mg 3 mg IV q 4 hour PRN Sanjuana Sellers MD 3 mg at 07/31/18 1423 ??? insulin glargine (LANTUS) injection 15 Units 15 Units subCUT BID Sanjuana Sellers MD ??? sennosides-docusate sodium (SENNA-S) 8.6-50 mg per tablet 2 Tablet 2 Tablet Oral BID Sanjuana Sellers MD 2 Tablet at 07/31/18 1426 ??? polyethylene glycol (MIRALAX) packet 17 Gram 17 Gram Oral Daily PRN Sanjuana Sellers MD ??? sodium chloride 0.9% infusion IV Continuous Jam Martinez MD 100 mL/hr at 07/31/18 1257 ??? ondansetron (ZOFRAN ODT) tablet 4 mg 4 mg Oral q 6 hour PRN Jovany Trevino MD 4 mg at 07/31/18 0944 ??? dicyclomine (BENTYL) capsule 10 mg 10 mg Oral QID Meals Sanjuana Sellers MD 10 mg at 07/31/18 1251 ??? oxyCODONE-acetaminophen (PERCOCET) 10-325 mg per tablet 1 Tablet 1 Tablet Oral q 4 hour PRN Sanjuana Sellers MD 1 Tablet at 07/31/18 1128 ??? LORazepam (ATIVAN) tablet 1 mg 1 mg Oral BID PRN Sanjuana Sellers MD 1 mg at 07/30/18 2135 ??? fenofibrate (LOFIBRA) tablet 160 mg 160 mg Oral Daily Sanjuana Sellers MD 160 mg at 941 ??? niacin (NIACOR) tablet 500 mg 500 mg Oral BID Sanjuana Sellers MD 500 mg at 07/31/18 0942 ??? zeyunsf-mncvqp-yrzyhzon (CRERUDI 12) 60-12-38 per capsule 2 Capsule 2 Capsule Oral QID Meals Sanjuana Sellers MD 2 Capsule at 07/30/18 1851 ??? pantoprazole (PROTONIX) tablet 40 mg 40 mg Oral BID Sanjuana Sellers MD 40 mg at 07/31/18 0942 ??? traZODone (DESYREL) tablet 100 mg 100 mg Oral Daily BEDTIME Sanjuana Sellers MD 100 mg at 07/30/18 2126 ??? levothyroxine (SYNTHROID) tablet 200 mcg 200 mcg Oral Daily Sanjuana Sellers MD 200 mcg at 07/31/18 0942 ??? dextrose 5% - sodium chloride 0.9% infusion 40 mL/hr IV See Admin Notes Sanjuana Sellers MD ??? naloxone (NARCAN) 0.4 mg/mL injection 0.1 mg 0.1 mg IV See Admin Notes Sanjuana Sellers MD ??? dextrose 50% (D50) syringe 12.5 Gram 12.5 Gram IV See Admin Notes Sanjuana Sellers MD ??? dextrose 50% (D50) syringe 25 Gram 25 Gram IV See Admin Notes Sanjuana Sellers MD ??? glucagon HCl 1 mg injection 1 mg 1 mg IM See Admin Notes Sanjuana Sellers MD ??? acetaminophen (TYLENOL) tablet 650 mg 650 mg Oral q 6 hour PRN Sanjuana Sellers MD 650 mg at07/31/18 1303 ??? enoxaparin (LOVENOX) injection 40 mg 40 mg subCUT q 24 hour Sanjuana Sellers MD 40 mg at 07/31/18 1249 ??? insulin lispro (HumaLOG) variable dose injection subCUT TID Meals Sanjuana Sellers MD 1 Units at 07/30/18 1216 ??? insulin lispro (HumaLOG) variable dose injection subCUT Daily BEDTIME Sanjuana Sellers MD ??? Fish Oil-[place]-3 Fatty Acids 360-1,200 mg capsule 1 Capsule 1 Capsule Oral BID Shannan Sellers MD 1 Capsule at 07/31/18 0941 ??? diphenhydrAMINE (BENADRYL) tablet 25 mg 25 mg Oral q 6 hour PRN Sanjuana Sellers MD 25 mg at07/30/18 1243 ??? atorvastatin (LIPITOR) tablet 40 mg 40 mg Oral Daily BEDTIME Sanjuana Sellers MD 40 mg at 07/30/18 2224 ??? citalopram (CeleXA) tablet 40 mg 40 mg Oral Daily BEDTIME Maco Dquue MD Allergies Allergen Reactions ??? Green Pepper Hives ??? Adhesive Unknown ??? Aspartame Headache All artificial sweeteners. ??? Adhesive Tape-Silicones Hives Meds reviewed (see above) Review of Systems: Respiratory ROS: negative for cough, shortness of breath, or wheezing Cardiovascular ROS: negative for chest pain or dyspnea on exertion Gastrointestinal ROS: negative for reflux, abdominal pain Integumentary ROS: No rashes Neurological ROS: negative for TIA or stroke symptoms PE: The patient is alert oriented x3 BP 112/73 (BP Location: Right arm, Patient Position (BP): Lying left side) Pulse 81 Temp 97.8 ??F (36.6 ??C) (Oral) Resp 11 Ht 5' 5 (1.651 m) Wt 93.4 kg (206 lb) SpO2 94% ? No BMI 34.28 kg/m?? NCAT, Pupils equal and round, hearing intact CV: S1S2 normal in rhythm and rate Abd: soft, mildly tender on palpation. Ext: No edema Skin: no rashes present Labs reviewed A/P: 42 y.o F w/ DM II, hypothyroidism, hypertriglyceridemia, h/o pancreatitis. Triglycerides are down to 769 this am. Continue NPO, SQ insulin, IV fluids. Her sugars are well controlled at this time. Repeat Triglycerides tomorrow am. Continue pain management as per hospitalist. Thank you very much for allowing me to assist in the care of your patient. Please feel free to callme with any further questions. Sincerely, Coty Pierson M.D. * Sanjuana Sellers MD - 07/31/2018 9:59 AM CDT [facility] Adult Hospitalist Progress Note Admit Date: 07/29/2018 Date of Note: 07/31/2018, 9:59 AM LOS: 1 day Previous history of present illness and review of systems have been reviewed today as documented inthe H&P on 07/29/2018; medications, labs, studies, notes, orders and consults have been reviewed.I have reviewed the notes from admission. Subjective: Seen and examined this morning, resting in bed. Complains of persistent abdominal discomfort and nausea. Reports overall general fatigue and weakness. Noted to have low blood pressure readings overnight-morphine dosage has been decreased. Discussed with patient's nurse today. Discussed with pathology today-noted endocrinology recommends no further plasmapheresis at this time. Objective: BP 110/69 (BP Location: Right arm, Patient Position (BP): Supine) Pulse 81 Temp 98 ??F (36.7 ??C) (Oral) Resp 11 Ht 5' 5 (1.651 m) Wt 93.4 kg (206 lb) SpO2 94% ? No BMI 34.28 kg/m?? Temp (24hrs), Av.9 ??F (36.6 ??C), Min:97.4 ??F (36.3 ??C), Max:98.3 ??F (36.8 ??C) Exam: General: Alert, no distress. Heart: Regular rate and rhythm, S1, S2 normal, no murmur, click, rub or gallop. Lungs: Clear to auscultation bilaterally Abdomen: Soft, mildly tender. Bowel sounds times four. No masses, No organomegaly. Extremities: No clubbing, cyanosis or edema Skin: Skin color, texture, turgor normal. No rashes or lesions. Warm and dry. Head: Normocephalic, atraumatic Neck: Supple, symmetrical, trachea midline, no adenopathy. Neuro: CNII-XII intact. Normal strength, sensation and reflexes throughout. Data Base: I have reviewed all new labs and studies resulted Results for orders placed or performed during the hospital encounter of 07/29/18 (from the past 24 hour(s)) POC GLUCOSE Result Value Ref Range POC GLUCOSE 131 (H) 74 - 99 mg/dL [employer] NAME MENDEL SAVANA PROTIME-INR Result Value Ref Range PROTIME 12.7 12.7 - 15.1 Seconds INR 1.0 0.9 - 1.1 POC GLUCOSE Result Value Ref Range POC GLUCOSE 130 (H) 74 - 99 mg/dL COMMENT, GLU POC Notified RN/MD [employer] NAME TRINI CAMARILLO POC GLUCOSE Result Value Ref Range POC GLUCOSE 137 (H) 74 - 99 mg/dL [employer] NAME GRETA MAGDALENO CBC WITH DIFFERENTIAL Result Value Ref Range WBC 5.8 4.0 - 9.8 K/uL RBC 3.54 (L) 3.90 - 4.90 M/uL HEMOGLOBIN 11.0 (L) 11.8 - 14.8 g/dL HEMATOCRIT 33.2 (L) 35.5 - 44.0 % MCV 93.8 82.0 - 99.0 fL MCH 31.1 27.2 - 32.6 pg MCHC 33.1 31.5 - 35.5 g/dL RDW 14.0 11.5 - 14.5 % RDW-STDEV 48.3 37.1 - 48.7 fL PLATELETS 140 140 - 350 K/uL MPV 10.3 9.3 - 12.4 fL NEUTROPHILS 50 % LYMPHOCYTES 40 % MONOCYTES 8 % EOSINOPHILS 1 % BASOPHILS 0 % IMMATURE GRANULOCYTES 1 % NEUTROPHIL ABSOLUTE 2.92 1.90 - 7.00 K/uL LYMPHOCYTE ABSOLUTE 2.33 0.70 - 4.50 K/uL MONOCYTE ABSOLUTE 0.47 0.10 - 1.30 K/uL EOSINOPHIL ABSOLUTE 0.05 0.00 - 0.70 K/uL BASOPHILS ABSOLUTE 0.02 0.00 - 0.20 K/uL IMMATURE GRANULOCYTES ABSOLUTE 0.04 (H) 0.00 - 0.03 K/uL COMPREHENSIVE METABOLIC PANEL Result Value Ref Range SODIUM 138 136 - 145 mmol/L POTASSIUM 4.6 3.5 - 5.0 mmol/L CHLORIDE 111 (H) 98 - 107 mmol/L CO2 20 (L) 22 - 29 mmol/L CALCIUM 6.9 (L) 8.6 - 10.2 mg/dL BUN 5 (L) 6 - 20 mg/dL CREATININE 0.48 (L) 0.51 - 0.95 mg/dL GLUCOSE 88 74 - 99 mg/dL TOTAL PROTEIN 4.9 (L) 6.7 - 8.6 g/dL ALBUMIN 3.4 (L) 3.5 - 5.2 g/dL BILIRUBIN TOTAL 0.5 0.3 - 1.2 mg/dL ALKALINE PHOSPHATASE 21 (L) 35 - 104 U/L AST 20 <33 U/L ALT 7 <34 U/L GFR >60 >=60 mL/min/1.73 sq meter GFR, >60 >=60 mL/min/1.73 sq meter ANION GAP 7 (L) 8 - 16 mmol/L TRIGLYCERIDE Result Value Ref Range TRIGLYCERIDE 769 (H) <150 mg/dL LACTIC ACID Result Value Ref Range LACTIC ACID 1.1 0.5 - 2.0 mmol/L POC GLUCOSE Result Value Ref Range POC GLUCOSE 108 (H) 74 - 99 mg/dL [employer] NAME JEFF TORRES PROTIME-INR Result Value Ref Range PROTIME 13.2 12.7 - 15.1 Seconds INR 1.0 0.9 - 1.1 Assessment/Plan of Actively Managed Problems 1. Hypertriglyceridemia with chylomicrons anemia syndrome, recurrent pancreatitis and abdominal pain. Underwent plasma exchange on 07/30/18, consulted endocrinology. Endocrine recommends no further plasmapheresis at this time. Continue niacin, fish oil, fenofibrate and statin. Check daily levels. Noted possible plan for IV insulin. 2. Abdominal pain-secondary to #1, keep n.p.o. except meds as recommended by endocrine.. Antiemetics as needed for nausea. Pain management with IV morphine for severe pain only. Increase frequency toevery 4 hours as needed Encourage p.o. pain medication. Escalated pain regimen to Percocet 10/325 (patient takes 5/325 at home). Continue Bentyl as needed. 3. Hypotension-noted overnight, felt to be secondary to IV morphine. Would limit morphine use for severe pain only. Encourage patient to use p.o. pain meds. Will likely discontinue morphine tomorrow. 4. Metabolic syndrome-noted, endocrinology consulted, she follows with endocrine as outpatient. 5. PCOS (polycystic ovarian syndrome)-aware. 6. 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 7. Chylomicronemia syndrome-noted, see #1 8. Tobacco use-cessation counseling 9. Type 2 diabetes mellitus without complication, with long-term current use of insulin, continue twice daily Lantus, decrease dose to 15 units and sliding scale insulin as now n.p.o. Consider adjustment based on Accu-Cheks as diet advances.. Appreciate endocrinology consultation, will likely need to discontinue this if IV insulin is being considered. Defer to endocrine. 10. GERD (gastroesophageal reflux disease)-PPI 11. History of pancreatitis-noted, CT did not reveal any evidence of acute pancreatitis this time. Continue Creon. 12. Hyponatremia-mild, likely secondary to nausea and vomiting as well as recent diarrhea. Improving. Continue to monitor labs. 13. Constipation-bowel regimen. DVT Prophylaxis -Lovenox Pettit catheter:absent Lines: Plasma exchange catheter in the right internal jugular PT POC OT POC Activity Order: Present Activity: in bed (07/31/18 4716) Current Code Status -Full Code Plan discussed with patient, questions answered. Discussed with patient's nurse. Current Planned Disposition -Home pending further improvement Likely by weekend. Patient will need to remain on TCU until further plan for triglycerides determined, as considering IV insulin per endocrinology at this time. If there is no plan for IV insulin orany further plasma exchange treatments she may transfer to medical surgical floor. Greater than 30 minutes were spent in patient's care today. More than 50% of the time spent was for the discussion of the test results, diagnosis, prognosis, lab results, plan of care, medication adjustment, discharge planning. This time may also include timespent for family/nursing conference and for discussion with any consultants. SANJUANA SELLERS MD * Greta Magdaleno RN - 07/31/2018 5:34 AM CDT BP low overnight with systolic ranging 70s-90s. MD paged several times. Total 2L bolused. BP stableat this time. MD decreased morphine dose as is a probable cause of hypotension. Adequate UOP. NPO. Continuing to monitor closely. * Ericka Leone NP - 07/31/2018 2:14 AM CDT [facility] Called for: hypotension Last Recorded Vitals: BP (!) 83/55 Pulse 72 Temp 98.3 ??F (36.8 ??C) (Oral) Resp 12 Ht 5' 5 (1.651 m) Wt 93.4 kg (206 lb) SpO2 97% ? No BMI 34.28 kg/m?? Documentation/Intervention/Outcome: Chart reviewed. Pt s/p saline bolus of 500cc and BP low but Pt voiding. Additional bolus ordered x1 and RN to document intake and output.Pt on morphine 6mg every 3 hours. Morphine and percocet doses decreased by 50%because analgesics may be contributing factors to hypotension. Additional fluid bolus of one liter ordered now. Please call back any time if I can be of further assistance. Ericka Leone NP Submit an eTicket * Ericka Leone NP - 07/31/2018 12:09 AM CDT [facility] Called for:hypotension Last Recorded Vitals: BP (!) 79/59 Pulse 86 Temp 98.3 ??F (36.8 ??C) (Oral) Resp 14 Ht 5' 5 (1.651 m) Wt 93.4 kg (206 lb) SpO2 (!) 89% ? No BMI 34.28 kg/m?? Documentation/Intervention/Outcome: Chart reviewed. Pt with hypotension and light headedness. Admitted with abdominal pain and nausea significant for pancreatitis. IV bolus x1 for hypotension Please call back any time if I can be of further assistance. Ericka Leone NP Submit an eTicket * Maco Duque MD - 07/30/2018 9:39 PM CDT [facility] Cross Cover Call Called for: Need clarification for acuchecks. Insulin ordered q4 hours, orders states ac/hs. Last Recorded Vitals: BP 105/58 Pulse 91 Temp 97.7 ??F (36.5 ??C) (Axillary) Resp 12 Ht 5' 5 (1.651 m) Wt 93.4 kg (206 lb) SpO2 93% ? No BMI 34.28 kg/m?? Documentation/Intervention/Outcome: Chart reviewed. ordered Please call back any time if I can be of further assistance. Maco Duque MD Submit an eTicket * Eliane Rosado MD - 07/30/2018 7:27 PM CDT Pt seen and examined 42 y/o female with hx of dm2, hypothyroidism, hypertriglyceridemia with hx of pancreatitis gets admitted to hospital frequently with abdominal pain. During this hospital pt admitted with abd pain, lipase normal. Trig > 2000, received plasmapheresis once today. Pt is on clear liquid diet. Plan: No more plasmaphersis since she is not having acute pancreatitis. Keep pt NPO . IVF Continue lantus and humalog ssi qa. Pain control as per [facility] hospitalist. Check fasting lipid panel in am. Continue fenofibrate, fish oil and niacin. Endocrine Dr Martin will follow this pt tomorrow and decide about insulin gtt based on triglyceridelevel. Thank you for allowing me to participate in the care of this patient. Please feel free to call me if you have any questions. Sincerely, Suzi Rosado MD * Sharri Juarez RN - 07/30/2018 6:16 PM CDT Plasma exchange #1 completed today using the R IJ cathter for access and return. Used 5% albumin asthe replacement fluid for a 1.0 volume exchange with a 100% fluid balance. 2 grams of calcium gluconate given over the course of the procedure. Patient tolerated the procedure well. * Savana Oglesby RN - 07/30/2018 3:07 PM CDT Undress and Assess performed by the following two coworkers: Alana, PCT & A. CLAU Oglesbypower brake rebuilder or upon transfer to: 7th floor & IR to TCU ~~~~~~~~~~~~~~~~~~~~~~~~~~~~ Is the patient a paraplegic/quadriplegic? NO Does the patient have new purple/sissy/dark red over bony prominences? No Does the patient have an ostomy? NO Is the length of stay >2 weeks? NO ~If ANY answer 'yes'- please consult~ Patient does not have skin breakdown. Location/ Description of breakdown: Wound care consult was not initiated. Protective Dressings Applied to Sacrum and Heels (Mepilex) as per Pathway? No Patient arrived to this room with the following belongings/valuables:(ie:dentures, hearing aids, glasses): Patient arrived to this room with the following medical equipment/devices (ie: insulin pump, home CPAP, walker): All Jewelry removed from patient Yes Disposition of belongings/valuables: Pair of earings & necklace located in inside pocket if teal bag, cell phone with corporate legal assistant and set of clothes with camel colored slip on shoes * Sharri Vernon RN - 07/30/2018 2:46 PM CDT Procedure complete. Patient tolerated well. VS stable. Report called to Sharri OLGUIN. Vitals: 07/30/18 1441 BP: 114/69 Pulse: 79 Resp: Temp: SpO2: 91% * Shira Zamora RN - 07/30/2018 2:34 PM CDT POC updated with pt, verbalized understanding.Report given to IR nurse and TCU nurse. Pt currently in IR. * Shira Zamora RN - 07/30/2018 2:32 PM CDT Pt tolerated clears. Voiding good in BR. Nausea better, no vomiting. Slept on and off most of the day , requested pain meds for c/o abd pain when awake. VSS. No acute issues. * Sharri Vernon RN - 07/30/2018 2:27 PM CDT Reviewed patients hx/allergies/meds/labs/and orders. Introduced self to patient/and or family. Dr. Sheffield discussed the procedure with the patient/and or family. Informed consent obtained. Patients VSmonitored and documented in EPIC. Patient positioned in XR 12 for procedure. * Alize Arteaga MD - 07/30/2018 1:24 PM CDT CC: 42 yo female with hypertriglyceridemia associated with recurring pancreatitis (ASFA category III indication for apheresis). ?? HPI: Epigastric abdominal pain, nausea and vomiting x1 day on background of chronic abdominal pain. ?? PMH: Hypertriglyceridemia (associated with prior episodes of pancreatitis), DM, anxiety, GERG, HLD,hypothyroidism, PCOS ?? Meds: as per [facility]. ?? Exam: Patient resting in bed. Catheter in place in R neck with clear, occlusive dressing in place. No erythema, induration or drainage observed. ?? Labs: WBC 8.6, Hgb 11.0, Hct 33.2, Plt 183, triglycerides 2,792 (pre-procedure) ?? A&P: 1. 42 yo female with hypertriglyceridemia associated with recurrent pancreatitis requires plasma exchange. 2. Plan plasma exchange daily until triglycerides < 500. 3. We will perform a 1.0 volume plasma exchange with all albumin replacement with 100% fluid balance with 2 g calcium gluconate over the procedure. 4. Per Dr. Rosado with endocrinology, no further plasma exchanges are indicated. Discussed with Dr. Sellers and explained that there are case series demonstrating the effectiveness of using plasma exchange in both acute pancreatitis associated with hypertriglyceridemia and in patients with recurring pancreatitis with hypertriglyceridemia and also case series demonstrating minimal effect. There is not a lot of literature on this and expert clinical guidance is appreciated. I think it was reasonable and literature supported to do the treatment and I think it is also reasonable and literature supported to be done after one treatment. 5. Apheresis will be signing off. 6. For fdc care of patients with recurring pancreatitis requiring [...] years. If you would like to discuss termite exterminator helper venousaccess and/or prophylactic apheresis, please let me know. ?? Procedure #1: Patient tolerated the procedure well. No signs or symptoms of hypocalcemia noted. ?? I have seen and examined the patient, reviewed pertinent notes and records, and remained immediately available throughout the procedure. ?? Alize Arteaga MD, PhD Analytic Programmer, therapeutic apheresis service [phone] * Shira Zamora RN - 07/30/2018 11:03 AM CDT [facility],called as directed by [facility] for med verification. * Sanjuana Sellers MD - 07/30/2018 9:05 AM CDT Seen and examined Full note to follow Consult requested to endocrinology D/W nurse Admission orders placed Check CBC CMP * Jovany Trevino MD - 07/30/2018 5:34 AM CDT [facility] Called for: Nausea Last Recorded Vitals: BP 112/67 (BP Location: Left arm, Patient Position (BP): Supine) Pulse 76 Temp 98 ??F (36.7 ??C) (Oral) Resp 16 Ht 5' 5 (1.651 m) Wt 93.4 kg (206 lb) SpO2 97% ? No BMI 34.28 kg/m?? Documentation/Intervention/Outcome: Chart reviewed. Pt admitted overnight for abdominal pain. Has yet to be seen by in house hospitalist. Still having nausea. Requesting zofran increased from Q8H to Q6H. Orders placed. Further orders per admitting hospitalist once pt is seen and examined. Please call back any time if I can be of further assistance. Jovany Trevino MD Submit an eTicket documented in this encounter H&P Notes * Sanjuana Sellers MD - 07/30/2018 8:58 AM CDT [facility] Adult Hospitalist Admission H & P Patient Name: Casandra Doss Primary Care Doctor: Guerrero Middleton PA-C Date of Admission: 07/29/2018 Date of Service: 07/30/2018 Chief Complaint: Abdominal pain, nausea vomiting. HPI: Patient is a 42 y.o. female presenting with the above complaints to the emergency department last night. Patient has a past medical history significant for anxiety, depression, type 2 diabetes mellitus, GERD, hypertriglyceridemia, chylomicrons anemia, pancreatitis, PCOS she presented to the hospital with complaints of worsening abdominal discomfort in the upper abdomen about 8/10 in severity radiating to the back through the left side of her abdomen. Patient also reported nausea and vomiting, vomited about 4 times yesterday, patient was unable to keep anything down all day yesterday, her lastmeal was at noon yesterday. She also reported a couple of loose stools, watery diarrhea. She deniesnoticing blood in her vomitus or stool. She denies any fever or sick contacts. She denies any flu symptoms. CT scan of the chest abdomen and pelvis was obtained on admission which showed no evidence of acute changes, she was noted to have a right adnexal cyst about 2.5 cm which was felt to be physio logic. No evidence of acute pancreatitis noted on CT. She is admitted for symptomatic management and further treatment.. Lipid panel revealed hypertriglyceridemia with a triglyceride level of 2792. This morning patient reported feeling about the same, abdominal discomfort persists. Requesting if she could have more morphine more often. Noted to have low blood pressures this morning. Encourage the patient to try oral pain medications. Reviewed home medications-updated in epic. Discussed with patient's nurse. Discussed with blood bank and pathology-plan for temporary catheter placement for plasma exchange. Spoke with IR-we will place a catheter today. Past Medical History: Past Medical History: Diagnosis [...] HYSTERECTOMY partial due to endometriosis 2006 ??? [place] ESOPHAGOGASTRODUODENOSCOPY TRANSORAL DIAGNOSTIC N/A 03/08/2018 ESOPHAGOGASTRODUODENOSCOPY performed by Ceasar Vega MD at [facility] Current Medications: Prior to Admission Medications Prescriptions Last Dose Informant Patient Reported? Taking? LORazepam (ATIVAN) 1 mg tablet 07/29/2018 at Unknown time Yes Yes Sig: Take 1 mg by mouth 2 times daily as needed for Anxiety . [id number]-FA-Fish Oil [id number] le-kr-[id number]-mcg Capsule 07/29/2018 at Unknown time No Yes Sig: Take 2 Caplets by mouth 2 times daily. dqkjsni-tmudvq-qrnbaopl DR (CREON) 60-12-38 capsule 07/29/2018 at Unknown time Yes Yes Sig: Take 2 Capsules by mouth 4 times daily with meals and at bedtime. citalopram (CeleXA) 40 mg tablet 07/28/2018 at Unknown time Yes Yes Sig: Take 40 mg by mouth daily at bedtime. dicyclomine (BENTYL) 10 mg capsule Past Week at Unknown time No Yes Sig: Take 1 Capsule by mouth 4 times daily. fenofibrate (LOFIBRA) 160 mg Oral Tab 07/29/2018 at Unknown time No Yes Sig: Take 1 Tab by mouth daily. insulin aspart (NovoLOG) 100 unit/mL injection 07/29/2018 at Unknown time Yes Yes Sig: Inject 1 Units by subcutaneous injection AM : 14 u Lunch: 16 u PM : 22 u . insulin glargine (LANTUS) 100 unit/mL injection 07/29/2018 at Unknown time Yes Yes Sig: Inject 28 Units by subcutaneous injection 2 times daily 28 units in the AM 38 units in the PM. levothyroxine 200 mcg tablet 07/29/2018 at Unknown time No Yes Sig: Take 1 Tablet by mouth daily without food in the morning 30 minutes before eating anything. metFORMIN (GLUCOPHAGE) 500 mg tablet 07/29/2018 at Unknown time No Yes Sig: Take 2 Tablets by mouth 2 times daily with meals. niacin (NIACOR) 500 mg tablet 07/29/2018 at Unknown time Yes Yes Sig: Take 500 mg by mouth 2 times daily. omega-3 fatty acids-fish oil 300-1,000 mg Capsule 07/29/2018 at Unknown time Yes Yes Sig: Take 2 Capsules by mouth 2 times daily. ondansetron (ZOFRAN ODT) 4 mg Tablet, Rapid Dissolve 07/29/2018 at Unknown time No Yes Sig: Dissolve 1 tablet on top of tongue, then swallow with saliva every 6 hours as needed for nausea/vomiting. oxyCODONE-acetaminophen (PERCOCET) 5-325 mg tablet Past Week at Unknown time No Yes Sig: Take 1 tablet by mouth every 4 hours as needed for pain. Max Daily Amount: 6 Tablets pantoprazole (PROTONIX) 40 mg Tablet, Delayed Release (E.C.) 07/29/2018 at Unknown time Yes Yes Sig: Take 40 mg by mouth 2 times daily . rosuvastatin (CRESTOR) 20 mg tablet 07/29/2018 at Unknown time Yes Yes Sig: Take 20 mg by mouth daily at bedtime. spironolactone (ALDACTONE) 25 mg tablet 07/29/2018 at Unknown time Yes Yes Sig: Take 25 mg by mouth daily. traZODone (DESYREL) 100 mg tablet 07/28/2018 Yes No Sig: Take 100 mg by mouth daily at bedtime . Facility-Administered Medications: None Medication Allergies: Allergies Allergen Reactions ??? Green Pepper Hives ??? Adhesive Unknown ??? Aspartame Headache All artificial sweeteners. ??? Adhesive Tape-Silicones Hives Family History: Family History Problem Relation Age of Onset ??? Diabetes Father ??? High Cholesterol Father ??? Hypertension Father ??? Stroke Mother ??? Heart Disease Mother ??? Thyroid Disease Mother ??? High Cholesterol Mother ??? Heart Disease Maternal Grandmother ??? Diabetes Maternal Grandmother ??? Diabetes Paternal Grandmother ??? Diabetes Mother Social History: Social History Substance Use Topics ??? Smoking status: Current Every Day Smoker Packs/day: 1.00 Years: 18.00 Types: Cigarettes ??? Smokeless tobacco: Never Used Comment: nicotine patch requested ??? Alcohol use No Review of Systems: Gen: General fatigue Eyes: No visual changes Ears: No change in hearing Endocrine: No heat or cold intolerance Pulm: No cough or SOB Cardiac: No chest pain or orthopnea GI: Abdominal pain, nausea, vomiting and diarrhea : No hematuria, urgency or frequency Musculoskeletal: No pain or weakness Neuro: No numbness or tingling Psych: No anxiety or depression Skin: No rashes or eruptions All other ROS reviewed and are negative Physical Exam: Patient Vitals for the past 8 hrs: BP Temp Temp src Pulse Resp SpO2 Height Weight 07/30/18 0755 (!) 91/41 - - - - - - - 07/30/18 0752 (!) 99/43 97.8 ??F (36.6 ??C) Oral 74 16 97 % - - 07/30/18 0352 112/67 98 ??F (36.7 ??C) Oral 76 16 97 % 5' 5 (1.651 m) 93.4 kg (206 lb) General: Alert, no distress. Heart: Regular rate and rhythm, S1, S2 normal, no murmur, click, rub or gallop. Lungs: Clear to auscultation bilaterally Abdomen: Soft, mildly-tender in the upper abdomen on the left side. Bowel sounds times four. No masses, No organomegaly. Extremities: No clubbing, cyanosis or edema Skin: Skin color, texture, turgor normal. No rashes or lesions. Warm and dry. Head: Normocephalic, atraumatic Neck: Supple, symmetrical, trachea midline, no adenopathy. Neuro: CNII-XII intact. Normal strength, sensation and reflexes throughout. Data Base: Lab: Results for orders placed or performed during the hospital encounter of 07/29/18 (from the past 24 hour(s)) CBC WITH DIFFERENTIAL Result Value Ref Range WBC 12.1 (H) 4.0 - 9.8 K/uL RBC 4.57 3.90 - 4.90 M/uL HEMOGLOBIN 14.3 11.8 - 14.8 g/dL HEMATOCRIT 40.6 35.5 - 44.0 % MCV 88.8 82.0 - 99.0 fL MCH 31.3 27.2 - 32.6 pg MCHC 35.2 31.5 - 35.5 g/dL RDW 13.7 11.5 - 14.5 % RDW-STDEV 44.7 37.1 - 48.7 fL PLATELETS 287 140 - 350 K/uL MPV 9.4 9.3 - 12.4 fL NEUTROPHILS 63 % LYMPHOCYTES 30 % MONOCYTES 6 % EOSINOPHILS 1 % BASOPHILS 0 % IMMATURE GRANULOCYTES 0 % NEUTROPHIL ABSOLUTE 7.66 (H) 1.90 - 7.00 K/uL LYMPHOCYTE ABSOLUTE 3.59 0.70 - 4.50 K/uL MONOCYTE ABSOLUTE 0.72 0.10 - 1.30 K/uL EOSINOPHIL ABSOLUTE 0.07 0.00 - 0.70 K/uL BASOPHILS ABSOLUTE 0.04 0.00 - 0.20 K/uL IMMATURE GRANULOCYTES ABSOLUTE 0.05 (H) 0.00 - 0.03 K/uL COMPREHENSIVE METABOLIC PANEL Result Value Ref Range SODIUM 127 (L) 136 - 145 mmol/L POTASSIUM 4.4 3.5 - 5.0 mmol/L CHLORIDE 93 (L) 98 - 107 mmol/L CO2 20 (L) 22 - 29 mmol/L CALCIUM 9.1 8.6 - 10.2 mg/dL BUN 12 6 - 20 mg/dL CREATININE 0.46 (L) 0.51 - 0.95 mg/dL GLUCOSE 175 (H) 74 - 99 mg/dL TOTAL PROTEIN 7.4 6.7 - 8.6 g/dL ALBUMIN 4.3 3.5 - 5.2 g/dL BILIRUBIN TOTAL <0.2 (L) 0.3 - 1.2 mg/dL ALKALINE PHOSPHATASE 76 35 - 104 U/L AST 17 <33 U/L ALT 14 <34 U/L GFR >60 >=60 mL/min/1.73 sq meter GFR, >60 >=60 mL/min/1.73 sq meter ANION GAP 14 8 - 16 mmol/L LIPASE Result Value Ref Range LIPASE 38 13 - 60 U/L POC GLUCOSE Result Value Ref Range POC GLUCOSE 171 (H) 74 - 99 mg/dL [employer] NAME MANDO AYLA LIPID PANEL Result Value Ref Range CHOLESTEROL 458 (H) <200 mg/dL TRIGLYCERIDE 2,792 (H) <150 mg/dL HDL 40 - 59 mg/dL LDL CALCULATED <100 mg/dL NON-HDL CHOLESTEROL <130 mg/dL URINALYSIS WITH REFLEX MICROSCOPIC Result Value Ref Range COLOR UA Yellow Pale to Dark Yellow CLARITY UA Clear Clear SPECIFIC GRAVITY UA 1.020 1.003 - 1.035 PH UA 6.0 5.0 - 8.0 LEUKOCYTE ESTERASE UA Negative Negative NITRITE UA Negative Negative PROTEIN UA Negative Negative GLUCOSE UA Negative Negative KETONES UA Trace (A) Negative UROBILINOGEN UA Normal <2.0 mg/dL BILIRUBIN UA Negative Negative BLOOD UA Negative Negative HCG QUALITATIVE, URINE Result Value Ref Range HCG QUAL URINE Negative Negative COLOR UA Yellow Pale to Dark Yellow CLARITY UA Clear Clear Assessment and Plan: 1. Hypertriglyceridemia with chylomicrons anemia syndrome, recurrent pancreatitis and abdominal pain. Admit to medicine. Plan for plasma exchange, consulted endocrinology. Interventional radiology toplace the catheter. Discussed with blood bank and pathology. Patient will likely need plasma exchang e at least for 2 treatments until triglycerides are down to below 500. Continue niacin, fish oil, fenofibrate and statin. Check daily levels. 2. Abdominal pain-secondary to #1, clear liquid diet today. Antiemetics as needed for nausea. Pain management with IV morphine for severe pain only. Encourage p.o. pain medication. Will escalate painregimen to Percocet 10/325 (patient takes 5/325 at home). Continue Bentyl as needed 3. Metabolic syndrome-noted, endocrinology consulted, she follows with endocrine as outpatient. 4. PCOS (polycystic ovarian syndrome)-aware. 5. 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 6. Chylomicronemia syndrome-noted, see #1 7. Tobacco use-cessation counseling 8. Type 2 diabetes mellitus without complication, with long-term current use of insulin, will ordertwice daily Lantus and sliding scale insulin as now only on clear liquids. Consider adjustment based on Accu-Cheks as diet advances.. 9. GERD (gastroesophageal reflux disease)-PPI 10. History of pancreatitis-noted, CT did not reveal any evidence of acute pancreatitis this time. Continue Creon. 11. Hyponatremia-mild, likely secondary to nausea and vomiting as well as recent diarrhea. Improving. Continue to monitor labs. 12. DVT Prophylaxis Enoxaparin 13. GI Prophylaxis: None 14. Code status Full 15. Disposition: Home pending improvement, uncertain at this time due to the need for plasma exchange. More than 1 hour was spent in patient's care today. The above plan was discussed in detail with the patient, all her questions were answered to her satisfaction. SANJUANA SELLERS MD documented in this encounter Consult Notes * Bibiana Kahn RN - 08/01/2018 2:11 PM CDTAssociated Order(s): IP CONSULT TO IV TEAM IV CONSULT: Request for IV Consult. Reviewed electronic record and completed a vascular assessment. PIV inserted with some difficulty- documented in Doc Flowsheets ([employer]). Peripheral IV appropriate at this time-for fluids. RN notified. * Eliane Rosado MD - 07/30/2018 7:27 PM CDTAssociated Order(s): IP CONSULT TO ENDOCRINOLOGY Pt seen in consultation for management of hypertriglyceridemia in the hospital. HPI:Casandra is a 42 y/o female with hx of dm2, hyperlipidemia with hx of pancreatitis in the past, gets admitted to hospital frequently with c/o abdominal pain. Pt got admitted this time also with abdominal pain- lipase was normal at the time of admission , ct scan of abdomen showed no evidence of tomas pancreatic inflammation. Triglycerides > 2700 - pt had one cycle of apheresis. Currently on clear liquid diet and endocrine consulted to help with management/ Allergies Allergen Reactions ??? Green Pepper Hives ??? Adhesive Unknown ??? Aspartame Headache All artificial sweeteners. ??? Adhesive Tape-Silicones Hives Current Facility-Administered Medications Medication Dose Route Frequency Provider Last Rate Last Dose ??? nicotine (NICODERM CQ) 21 mg/24 hr transdermal patch 1 Patch 1 Patch Transdermal Daily Perfecto Dickinson MD 1 Patch at 08/01/18 035 ??? oxyCODONE (ROXICODONE) tablet 5 mg 5 mg Oral q 6 hour PRN Sanjuana Sellers MD 5 mg at 08/01/182005 ??? sodium chloride 0.9% infusion IV Continuous Sanjuana Sellers MD 75 mL/hr at 08/01/182009 ??? calcium GLUCONATE 2,000 mg in sodium chloride 0.9% 120 mL IVPB 2,000 mg IV Intra-Proc Once Alize Arteaga MD ??? prochlorperazine (COMPAZINE) injection 5 mg 5 mg IV q 4 hour PRN Sanjuana Sellers MD 5 mg at08/01/18 1805 ??? sennosides-docusate sodium (SENNA-S) 8.6-50 mg per tablet 2 Tablet 2 Tablet Oral BID Sanjuana Sellers MD 2 Tablet at 08/01/182110 ??? polyethylene glycol (MIRALAX) packet 17 Gram 17 Gram Oral Daily PRN Sanjuana Sellers MD ??? insulin lispro (HumaLOG) variable dose injection subCUT q 4 hour Sanjuana Sellers MD ??? dextrose 5% - sodium chloride 0.9% infusion IV Continuous Sanjuana Sellers MD Stopped at 08/01/182008 ??? [DISCONTINUED] morphine 4 mg/mL injection 3 mg 3 mg IV q 4 hour PRN Sanjuana Sellers MD 3 mgat 08/01/18 0842 ??? ondansetron (ZOFRAN ODT) tablet 4 mg 4 mg Oral q 6 hour PRN Jovany Trevino MD 4 mg at 08/01/18 1221 ??? dicyclomine (BENTYL) capsule 10 mg 10 mg Oral QID Meals Sanjuana Sellers MD 10 mg at 08/01/182111 ??? oxyCODONE-acetaminophen (PERCOCET) 10-325 mg per tablet 1 Tablet 1 Tablet Oral q 4 hour PRN Sanjuana Sellers MD 1 Tablet at 08/01/18 1714 ??? LORazepam (ATIVAN) tablet 1 mg 1 mg Oral BID PRN Sanjuana Sellers MD 1 mg at 07/30/182134 ??? fenofibrate (LOFIBRA) tablet 160 mg 160 mg Oral Daily Sanjuana Sellers MD 160 mg at 839 ??? niacin (NIACOR) tablet 500 mg 500 mg Oral BID Sanjuana Sellers MD 500 mg at 08/01/182111 ??? hhmrbcl-hjgjry-ecrdfyfg ([facility] 12 60-12-38 per capsule 2 Capsule 2 Capsule Oral QID Meals Sanjuana Sellers MD 2 Capsule at 07/30/18 185 ??? pantoprazole (PROTONIX) tablet 40 mg 40 mg Oral BID Sanjuana Sellers MD 40 mg at 08/01/182112 ??? traZODone (DESYREL) tablet 100 mg 100 mg Oral Daily BEDTIME Sanjuana Sellers MD 100 mg at 08/01/182112 ??? levothyroxine (SYNTHROID) tablet 200 mcg 200 mcg Oral Daily Sanjuana Sellers MD 200 mcg at 08/01/18 0839 ??? dextrose 5% - sodium chloride 0.9% infusion 40 mL/hr IV See Admin Notes Sanjuana Sellers MD ??? naloxone (NARCAN) 0.4 mg/mL injection 0.1 mg 0.1 mg IV See Admin Notes Sanjuana Sellers MD ??? dextrose 50% (D50) syringe 12.5 Gram 12.5 Gram IV See Admin Notes Sanjuana Sellers MD ??? dextrose 50% (D50) syringe 25 Gram 25 Gram IV See Admin Notes Sanjuana Sellers MD ??? glucagon HCl 1 mg injection 1 mg 1 mg IM See Admin Notes Sanjuana Sellers MD ??? acetaminophen (TYLENOL) tablet 650 mg 650 mg Oral q 6 hour PRN Sanjuana Sellers MD 650 mg at08/01/182005 ??? enoxaparin (LOVENOX) injection 40 mg 40 mg subCUT q 24 hour Sanjuana Sellers MD 40 mg at 08/01/18 1217 ??? insulin lispro (HumaLOG) variable dose injection subCUT Daily BEDTIME Sanjuana Sellers MD ??? Fish Oil-[place]-3 Fatty Acids 360-1,200 mg capsule 1 Capsule 1 Capsule Oral BID Shannan Sellers MD 1 Capsule at 08/01/183 ??? diphenhydrAMINE (BENADRYL) tablet 25 mg 25 mg Oral q 6 hour PRN Sanjuana Sellers MD 25 mg at08/01/18 1102 ??? atorvastatin (LIPITOR) tablet 40 mg 40 mg Oral Daily BEDTIME Sanjuana Sellers MD 40 mg at 07/31/182008 ??? citalopram (CeleXA) tablet 40 mg 40 mg Oral Daily BEDTIME Maco Duque MD 40 mg at 08/01/18 2111 Past Medical History: Diagnosis Date ??? Anxiety [...] HYSTERECTOMY partial due to endometriosis 2006 ??? [place] ESOPHAGOGASTRODUODENOSCOPY TRANSORAL DIAGNOSTIC N/A 03/08/2018 ESOPHAGOGASTRODUODENOSCOPY performed by Ceasar Vega MD at [facility] Social History Substance Use Topics ??? Smoking status: Current Every Day Smoker Packs/day: 1.00 Years: 18.00 Types: Cigarettes ??? Smokeless tobacco: Never Used Comment: nicotine patch requested ??? Alcohol use No Family History Problem Relation Age of Onset ??? Diabetes Father ??? [...] or anxiety Musculoskeletal: denies arthralgias, myalgias. Exam: Gen: Awake and alert in NAD Neuro: Oriented x 3, non focal , SPARKS equally HEENT: PERRL, trachea midline, oral mucosa dry Cardiac: HRRR no murmur, no JVD or cyanosis Pulm: RR even unlabored, LCTA bilaterally Abdomen: soft, mild TTP left upper quadrant, no rigidity or rebound tenderness. Skin: no rashes. Extremities: no edema, 1+ pulses Labs and imaging reviewed. A/P: No more plasmaphersis since she is not having acute pancreatitis. Lipase normal. Ct scan of abdomen showed no peripancreatic inflammation. Keep pt NPO . IVF Continue lantus and humalog ssi qac. Pain control as per [facility] hospitalist. Check fasting lipid panel in am. Continue fenofibrate, fish oil and niacin. Endocrine Dr Martin will follow this pt tomorrow and decide about insulin gtt based on triglyceridelevel. If triglycerides < 1000- no need to start insulin gtt. Thank you for allowing me to participate in the care of this patient. Please feel free to call me if you have any questions. Sincerely, Suzi Rosado MD documented in this encounter ED Notes * Josee Mancilla RN - 07/30/2018 2:58 AM CDT Report called to receiving RN. Patient AOx4, respirations even and unlabored, nad noted at present. * Josee Mancilla RN - 07/30/2018 12:23 AM CDT Patient medicated per JUN. Patient/family has been informed about benefits and any potential clinically significant side effects or other concerns regarding the administration of the drug they have just been given. * Ayla Gilmore RN - 07/29/2018 10:59 PM CDT Zofran given. Patient/family has been informed about benefits and any potential clinically significant side effects or other concerns regarding the administration of the drug they have just been given. * Jam Martinez MD - 07/29/2018 10:46 PM CDT HISTORY OF PRESENT ILLNESS Casandra Doss, a 42 y.o. female presents to the ED with a Chief Complaint of Abdominal Pain Subjective Documented Triage Chief Complaint: Abdominal Pain 12:07 AM: Casandra Doss is a 42 y.o. female with a history of hypertriglyceridemia, PCOS, hypothyroidism, Chylomicronemia syndrome, depression, type 2 diabetes, GERD, pancreatitis who presents with stabbing and burning LUQ abdominal pain extending up to the chest, back, and left shoulder. Pain began 2 days ago and has worsened since. Admits to nausea, vomiting, and diarrhea. She denies fever or cough. These symptoms are typical of her past pancreatitis. Also denies secondary to hysterectomy or known drug allergies. Severity: moderate Duration: recurrant Progression: worsening Quality: see above Radiation: see above Associated symptoms: see above Primary Care Doctor: Guerrero Middleton PA-C History provided by: The patient Arrived by: Private vehicle REVIEW OF SYSTEMS Review of Systems Constitutional: Negative for chills, diaphoresis, fatigue and fever. HENT: Negative for ear pain, sinus pressure, sore throat and trouble swallowing. Eyes: Negative for pain. Respiratory: Negative for cough, chest tightness, shortness of breath, wheezing and stridor. Cardiovascular: Positive for chest pain (radiates from abdomen). Negative for palpitations and leg swelling. Gastrointestinal: Positive for abdominal pain (LUQ radiates to back and left shoulder), diarrhea, nausea and vomiting. Negative for blood in stool and constipation. Genitourinary: Negative for dysuria, flank pain, frequency, hematuria and urgency. Musculoskeletal: Positive for arthralgias (left shoulder pain radiating from abdomen) and back pain(radiates from abdomen). Negative for joint swelling and neck pain. Skin: Negative for pallor and rash. Neurological: Negative for dizziness, seizures, syncope, speech difficulty, weakness, light-headedness, numbness and headaches. Psychiatric/Behavioral: Negative for confusion and sleep disturbance. The patient is not nervous/anxious. PAST MEDICAL HISTORY REVIEWED MEDICAL: Patient has a past medical history of Anxiety; Depression; Diabetes mellitus; DM type 2 (diabetes mellitus, type 2); Family history of diabetes mellitus (05/15/2011); Family history of early CAD (05/15/2011); GERD (gastroesophageal reflux disease); High triglycerides; History of gestational diabetes ( 05/15/2011); HLD (hyperlipidemia); Hypothyroidism; Metabolic syndrome (05/15/2011); Pancreatitis; PCOS (polycystic ovarian syndrome) (05/15/2011); and Smoker. She also has no past [...] SOCIAL: reports that she has been smoking Cigarettes. She has a 18.00 pack-year smoking history. She has never used smokeless tobacco. She reports that she currently engages in sexual activity and has had male partners. She reports that she does not drink [...] (gastroesophageal reflux disease); Abdominal pain; Chylomicronemia syndrome; Hypertriglyceridemia;Depression with anxiety; History of plasmapheresis; Mixed hyperlipidemia; and History of pancreatitis on her problem list. ALLERGIES Green pepper; Adhesive; Aspartame; and Adhesive tape-silicones HOME MEDICATIONS Current Discharge Medication List CONTINUE these medications which have NOT CHANGED Details omega-3 fatty acids-fish oil 300-1,000 mg Capsule Take 2 Capsules by mouth 2 times daily. oxyCODONE-acetaminophen (PERCOCET) 5-325 mg tablet Take 1 tablet by mouth every 4 hours as needed for pain. Max Daily Amount: 6 Tablets Qty: 20 Tablet, Refills: 0 dicyclomine (BENTYL) 10 mg capsule Take 1 Capsule by mouth 4 times daily. Qty: 15 Capsule, Refills: 0 metFORMIN (GLUCOPHAGE) 500 mg tablet Take 2 Tablets by mouth 2 times daily with meals. Qty: 60 Tablet, Refills: 0 insulin aspart (NovoLOG) 100 unit/mL injection Inject 1 Units by subcutaneous injection AM : 14 u Lunch: 16 u PM : 22 u . rxdweoe-zwuzat-alhktqeu DR (CREON) 60-12-38 capsule Take 2 Capsules by mouth 4 times daily with meals and at bedtime. ondansetron (ZOFRAN ODT) 4 mg Tablet, Rapid Dissolve Dissolve 1 tablet on top of tongue, then swallow with saliva every 6 hours as needed for nausea/vomiting. Qty: 30 Tablet, Refills: 0 levothyroxine 200 mcg tablet Take 1 Tablet by mouth daily without food in the morning 30 minutes before eating anything. Qty: 30 Tablet, Refills: 0 Associated Diagnoses: Hypothyroidism insulin glargine (LANTUS) 100 unit/mL injection Inject 28 Units by subcutaneous injection 2 times daily 28 units in the AM 38 units in the PM. pantoprazole (PROTONIX) 40 mg Tablet, Delayed Release (E.C.) Take 40 mg by mouth 2 times daily . Jnjdw2-[id number]-F02-E-FA-Fish Oil [id number] tb-di-sfg-mcg Capsule Take 2 Caplets by mouth 2 timesdaily. Qty: 120 Capsule, Refills: 3 spironolactone (ALDACTONE) 25 mg tablet Take 25 mg by mouth daily. rosuvastatin (CRESTOR) 20 mg tablet Take 20 mg by mouth daily at bedtime. niacin (NIACOR) 500 mg tablet Take 500 mg by mouth 2 times daily. LORazepam (ATIVAN) 1 mg tablet Take 1 mg by mouth 2 times daily as needed for Anxiety . citalopram (CeleXA) 40 mg tablet Take 40 mg by mouth daily at bedtime. fenofibrate (LOFIBRA) 160 mg Oral Tab Take 1 Tab by mouth daily. Qty: 90 Tab, Refills: 0 traZODone (DESYREL) 100 mg tablet Take 100 mg by mouth daily at bedtime . Objective PHYSICAL EXAM INITIAL VS BP: 134/64 (07/29/182249), Heart Rate: 104 bpm (07/29/182249), Resp: 18 (07/29/182249), Pulse: 76 (07/30/18 0352), Temp: 98.2 ??F (36.8 ??C) (07/29/182249), Temp src: Oral (07/29/182249), SpO2: 100 % (07/29/182249), Height: 5' 5 (165.1 cm) (07/29/182249), Weight: 90.7 kg (200 lb) (07/29/182249), BMI (Calculated): 33.28 (07/29/182249) No LMP recorded. Patient has had a hysterectomy. Physical Exam Constitutional: She is oriented to person, place, and time. No distress. HENT: Head: Normocephalic. Mouth/Throat: Oropharynx is clear and moist. No oropharyngeal exudate. Eyes: Pupils are equal, round, and reactive to light. Conjunctivae and EOM are normal. Right eye exhibits no discharge. Left eye exhibits no discharge. No scleral icterus. Neck: Normal range of motion. Neck supple. No tracheal deviation present. No thyromegaly present. Cardiovascular: Normal rate, normal heart sounds and intact distal pulses. Pulmonary/Chest: Effort normal and breath sounds normal. No respiratory distress. Abdominal: Soft. Bowel sounds are normal. She exhibits no distension. There is tenderness in the left upper quadrant. There is no rebound. Musculoskeletal: Normal range of motion. She exhibits no edema or tenderness. Neurological: She is alert and oriented to person, place, and time. No cranial nerve deficit. Coordination normal. Skin: Skin is warm and dry. No rash noted. She is not diaphoretic. No erythema. Psychiatric: She has a normal mood and affect. Her behavior is normal. Judgment and thought contentnormal. Nursing note and vitals reviewed. DIAGNOSTICS LAB: CBC WITH DIFFERENTIAL - Abnormal Result Value WBC 12.1 (*) RBC 4.57 HEMOGLOBIN 14.3 HEMATOCRIT 40.6 MCV 88.8 MCH 31.3 MCHC 35.2 RDW 13.7 RDW-STDEV 44.7 PLATELETS 287 MPV 9.4 NEUTROPHILS 63 LYMPHOCYTES 30 MONOCYTES 6 EOSINOPHILS 1 BASOPHILS 0 IMMATURE GRANULOCYTES 0 NEUTROPHIL ABSOLUTE 7.66 (*) LYMPHOCYTE ABSOLUTE 3.59 MONOCYTE ABSOLUTE 0.72 EOSINOPHIL ABSOLUTE 0.07 BASOPHILS ABSOLUTE 0.04 IMMATURE GRANULOCYTES ABSOLUTE 0.05 (*) COMPREHENSIVE METABOLIC PANEL - Abnormal SODIUM 127 (*) POTASSIUM 4.4 CHLORIDE 93 (*) CO2 20 (*) CALCIUM 9.1 BUN 12 CREATININE 0.46 (*) GLUCOSE 175 (*) TOTAL PROTEIN 7.4 ALBUMIN 4.3 BILIRUBIN TOTAL <0.2 (*) ALKALINE PHOSPHATASE 76 AST 17 ALT 14 GFR >60 GFR, >60 ANION GAP 14 URINALYSIS WITH REFLEX MICROSCOPIC - Abnormal COLOR UA Yellow CLARITY UA Clear SPECIFIC GRAVITY UA 1.020 PH UA 6.0 LEUKOCYTE ESTERASE UA Negative NITRITE UA Negative PROTEIN UA Negative GLUCOSE UA Negative KETONES UA Trace (*) UROBILINOGEN UA Normal BILIRUBIN UA Negative BLOOD UA Negative LIPID PANEL - Abnormal CHOLESTEROL 458 (*) TRIGLYCERIDE 2,792 (*) HDL LDL CALCULATED NON-HDL CHOLESTEROL POC GLUCOSE - Abnormal POC GLUCOSE 171 (*) COMPANY TANKER TRUCK DRIVER NAME AYLA GILMORE LIPASE - Normal LIPASE 38 HCG QUALITATIVE, URINE - Normal HCG QUAL URINE Negative COLOR UA Yellow CLARITY UA Clear RADIOLOGY: CTA CHEST + ABD/PEL W CONTRAST CTA CHEST + ABD/PEL W CONTRAST Radiologist Impression IMPRESSION: 1. No evidence of acute pulmonary embolism or aortic pathology. 2. Bilateral dependent atelectatic changes. CT ABDOMEN AND PELVIS: The liver, spleen, pancreas and adrenal glands are unremarkable. The gallbladder and biliary tree are normal. There is slight prominence of the renal collecting systems which remain stable. This may represent the presence of extrarenal pelves. No renal perfusion defect is appreciated. The urinary bladder is normal. There is no evidence of bowel obstruction, free intraperitoneal air or ascites. A right adnexal cyst measures 2.5 x 2.0 cm with a density value of 3HU on image 138 of series 10. The left ovary is normal. No free pelvic fluid or adenopathy is seen. Osseous structures are intact IMPRESSION: 1. Right adnexal cyst measuring 2.5 cm, likely physiologic. 2. No evidence of peripancreatic inflammation. The examination was performed with the adjustment of mA according to the patient size and/or the use of Iterative 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 DICTATION LOCATION: Location 1 - [facility] PROCEDURES Procedures MEDICAL DECISION MAKING AND PLAN OF CARE --Upon initial evaluation, discussed with patient the plan for pain medications. 1:30 AM: Discussed with Dr. Duque ([facility] Hospitalist) who will admit to Medical floor. 1:40 AM: Updated patient on results, diagnosis, and plan for admission. Patient agrees with the plan. The opportunity for questions was given and questions were answered to the patient's satisfaction. All questions and concerns have been addressed. ED provider and ED nurse verbally discussed patient plan of care at this time. 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 She presents tonight for evaluation of right upper quadrant abdominal pain radiating to the chest. Symptoms are similar to prior episodes. Labs are remarkable for hyponatremia and hyperglycemia. Her tri glycerides are markedly elevated likely causing her symptoms.Will admit to Hospitalist service for further evaluation. I have reviewed previous: notes and labs I have reviewed current: labs and imaging I have reviewed nursing notes related to past medical history, social history, and review of systems and agree, unless otherwise noted. Consults: hospitalist Medications Administered During the ED Stay from 07/29/2018 2246 to 07/30/2018 0346 Date/Time Order Dose Route Action 07/29/2018 2259 ondansetron (ZOFRAN) 4 mg/2 mL injection 4 mg 4 mg IV Given 07/30/2018 0019 ketamine (KETALAR) 10 mg/mL injection 15 mg 15 mg IV Given 07/30/2018 0019 midazolam (PF) (VERSED) injection 1 mg 1 mg IV Given 07/30/2018 0048 sodium chloride 0.9% bolus solution 1,000 mL 0 mL IV Stopped 07/30/2018 0018 sodium chloride 0.9% bolus solution 1,000 mL 1,000 mL IV New Bag 07/30/2018 0015 sodium chloride 0.9% infusion IV Canceled Entry 07/30/2018 0050 sodium chloride flush injection 10 mL 10 mL IV Given 07/30/2018 0049 iopamidol (ISOVUE-300) 61 % injection 120 mL 120 mL IV Contrast Given 07/30/2018 0201 morphine injection 6 mg 6 mg IV Given 07/30/2018 0204 ondansetron (ZOFRAN) 4 mg/2 mL injection 4 mg 4 mg IV Given 07/30/2018 0215 ONDANSETRON HCL (PF) 4 MG/2 ML INJECTION SOLUTION (CABINET OVERRIDE) 4 mg Admin by Another Clinician (Comment) Current Discharge Medication List CONTINUE these medications which have NOT CHANGED Details omega-3 fatty acids-fish oil 300-1,000 mg Capsule Take 2 Capsules by mouth 2 times daily. oxyCODONE-acetaminophen (PERCOCET) 5-325 mg tablet Take 1 tablet by mouth every 4 hours as needed for pain. Max Daily Amount: 6 Tablets Qty: 20 Tablet, Refills: 0 dicyclomine (BENTYL) 10 mg capsule Take 1 Capsule by mouth 4 times daily. Qty: 15 Capsule, Refills: 0 metFORMIN (GLUCOPHAGE) 500 mg tablet Take 2 Tablets by mouth 2 times daily with meals. Qty: 60 Tablet, Refills: 0 insulin aspart (NovoLOG) 100 unit/mL injection Inject 1 Units by subcutaneous injection AM : 14 u Lunch: 16 u PM : 22 u . lhcjrxb-donsae-orvboroc DR (CREON) 60-12-38 capsule Take 2 Capsules by mouth 4 times daily with meals and at bedtime. ondansetron (ZOFRAN ODT) 4 mg Tablet, Rapid Dissolve Dissolve 1 tablet on top of tongue, then swallow with saliva every 6 hours as needed for nausea/vomiting. Qty: 30 Tablet, Refills: 0 levothyroxine 200 mcg tablet Take 1 Tablet by mouth daily without food in the morning 30 minutes before eating anything. Qty: 30 Tablet, Refills: 0 Associated Diagnoses: Hypothyroidism insulin glargine (LANTUS) 100 unit/mL injection Inject 28 Units by subcutaneous injection 2 times daily 28 units in the AM 38 units in the PM. pantoprazole (PROTONIX) 40 mg Tablet, Delayed Release (E.C.) Take 40 mg by mouth 2 times daily . Oqutu0-HkmG1-W29-E-FA-Fish Oil [phone] pg-xw-bba-mcg Capsule Take 2 Caplets by mouth 2 timesdaily. Qty: 120 Capsule, Refills: 3 spironolactone (ALDACTONE) 25 mg tablet Take 25 mg by mouth daily. rosuvastatin (CRESTOR) 20 mg tablet Take 20 mg by mouth daily at bedtime. niacin (NIACOR) 500 mg tablet Take 500 mg by mouth 2 times daily. LORazepam (ATIVAN) 1 mg tablet Take 1 mg by mouth 2 times daily as needed for Anxiety . citalopram (CeleXA) 40 mg tablet Take 40 mg by mouth daily at bedtime. fenofibrate (LOFIBRA) 160 mg Oral Tab Take 1 Tab by mouth daily. Qty: 90 Tab, Refills: 0 traZODone (DESYREL) 100 mg tablet Take 100 mg by mouth daily at bedtime . LAST VS BP: 112/67 (07/30/18351), Heart Rate: 76 bpm (07/30/18351), Resp: 16 (07/30/18351), Pulse: 76(07/30/18351), Temp: 98 ??F (36.7 ??C) (07/30/18351), Temp src: Oral (07/30/18351), SpO2: 97 % (07/30/18351) CLINICAL IMPRESSION Final diagnoses: [E78.3] Chylomicronemia syndrome (Primary) [E78.1] Hypertriglyceridemia [R10.12] Left upper quadrant pain [E87.1] Hyponatremia [R73.9] Hyperglycemia DISPOSITION, EDUCATION AND MEDICATION RECONCILIATION Medications reconciled. See after visit summary for patient education on discharged patients. ED Disposition ED Disposition Condition User Date/Time Comment Admit Stable Jam Martinez MD SatJul 30, 2018 2:32 AM ATTESTATION STATEMENTS This note has been prepared by Gloria Gomez acting as a scribe for Dr. Jam Martinez on 07/30/2018at 2:59 AM. The scribe's documentation has been prepared under my direction and personally reviewed by me, Jam Martinez M.D. , in its entirety on 07/30/18 at 6:38 AM. I confirm that the note above accurately reflects all work, treatment, procedures, and medical decision making performed by me. * Josee Mancilla RN - 07/29/2018 10:46 PM CDT Triage summary reivewed by this RN. Patient complains of 10/10 pain at moment. Respirations are even and unlabored, equal rise and fall of the chest. Patient placed on continuous cardiac monitoring at this time. Call light within reach, side rails up per safety protocol. Denies any needs at this time. Will continue to monitor. documented in this encounter Miscellaneous Notes * Care Plan - Fany Paul GN - 08/03/2018 2:51 AM CDT Patient rested well this shift. Diet was advanced to Diabetic/Low fat. Patient tolerated dinner well. Patient had one episode of this so far this shift. VSS. IVF of NS at 75mls/hr. Patient has no newcomplaints. * Care Plan - Vaishali Erickson MSW - 08/01/2018 10:48 AM CDT Clinical documentation reviewed. Comprehensive Discharge [...] will continue to follow for discharge planning. * Care Plan - Xochitl Sales RN - 07/30/2018 6:11 AM CDT No acute events since arrival to the floor. Pt c/o 7/10 with some relief from PRN morphine order. Pt c/o nausea. paged for Zofran to be increased from Q8H to Q6H. Pt up independent in room. monitor tech initiated for continuous pulse oximetry. Will continue to monitor. Undress and Assess performed by: CLAU Montalvopower brake rebuilder or upon transfer to: [facility] ~~~~~~~~~~~~~~~~~~~~~~~~~~~~ Is the patient a paraplegic/quadriplegic? No Does the patient have new purple/sissy/dark red over bony prominences? No Does the patient have an ostomy? No Is the length of stay >2 weeks? No ~If ANY answer 'yes'- please consult~ Patient does not have skin breakdown. Location/ Description of breakdown: N/A Wound care consult was not initiated. Protective Dressings Applied to Sacrum and Heels (Mepilex) as per Pathway? none Patient arrived to this room with the following belongings/valuables:(ie:dentures, hearing aids, glasses): Bag filled with belongings, clothes Patient arrived to this room with the following medical equipment/devices (ie: insulin pump, home CPAP, walker): None Disposition of belongings/valuables: In the recliner in room 7301 documented in this encounter Plan of Treatment Upcoming Encounters Date Type Department Care Team (Late st Contact Info) Description 09/14/2024 3:00 PM CDT Office Visit [facility] [address] [id number] [place] [address] Marlys Mayer MD [address] [place] [address] documented as of this encounter Procedures Procedure Name Priority Date/Time Associated Diagnosis Comments POC GLUCOSE Routine 08/03/2018 10:10 AM CDT TRIGLYCERIDE Routine 08/03/2018 4:31 AM CDT BASIC METABOLIC PANEL Routine 08/03/2018 4:31 AM CDT POC GLUCOSE Routine 08/02/2018 8:07 PM CDT POC GLUCOSE Routine 08/02/2018 6:10 PM CDT POC GLUCOSE Routine 08/02/2018 12:05 PM CDT POC GLUCOSE Routine 08/02/2018 9:27 AM CDT EKG 12-LEAD Stat 08/02/2018 8:41 AM CDT POC GLUCOSE Routine 08/02/2018 5:52 AM CDT CBC WITH DIFFERENTIAL Routine 08/02/2018 4:50 AM CDT TRIGLYCERIDE Routine 08/02/2018 4:50 AM CDT COMPREHENSIVE METABOLIC PANEL Routine 08/02/2018 4:50 AM CDT POC GLUCOSE Routine 08/02/2018 2:17 AM CDT POC GLUCOSE Routine 08/01/2018 11:13 PM CDT POC GLUCOSE Routine 08/01/2018 9:53 PM CDT POC GLUCOSE Routine 08/01/2018 8:01 PM CDT POC GLUCOSE Routine 08/01/2018 3:45 PM CDT POC GLUCOSE Routine 08/01/2018 12:10 PM CDT POC GLUCOSE Routine 08/01/2018 8:16 AM CDT CBC WITH DIFFERENTIAL Routine 08/01/2018 4:09 AM CDT TRIGLYCERIDE Routine 08/01/2018 4:09 AM CDT COMPREHENSIVE METABOLIC PANEL Routine 08/01/2018 4:09 AM CDT POC GLUCOSE Routine 08/01/2018 3:52 AM CDT POC GLUCOSE Routine 08/01/2018 12:20 AM CDT POC GLUCOSE Routine 07/31/2018 8:05 PM CDT POC GLUCOSE Routine 07/31/2018 5:02 PM CDT POC GLUCOSE Routine 07/31/2018 4:09 PM CDT POC GLUCOSE Routine 07/31/2018 12:45 PM CDT PROTIME-INR Stat 07/31/2018 9:36 AM CDT History of pancreatitis POC GLUCOSE Routine 07/31/2018 9:35 AM CDT LACTIC ACID Stat 07/31/2018 3:20 AM CDT CBC WITH DIFFERENTIAL Routine 07/31/2018 3:20 AM CDT TRIGLYCERIDE Routine 07/31/2018 3:20 AM CDT COMPREHENSIVE METABOLIC PANEL Routine 07/31/2018 3:20 AM CDT POC GLUCOSE Routine 07/30/2018 9:25 PM CDT POC GLUCOSE Routine 07/30/2018 6:51 PM CDT PROTIME-INR Stat 07/30/2018 4:15 PM CDT Hypertriglyceridemia POC GLUCOSE Routine 07/30/2018 3:30 PM CDT IR VENOUS ACCESS Routine 07/30/2018 2:48 PM CDT POC GLUCOSE Routine 07/30/2018 12:06 PM CDT CBC WITH DIFFERENTIAL Routine 07/30/2018 9:22 AM CDT COMPREHENSIVE METABOLIC PANEL Routine 07/30/2018 9:22 AM CDT CTA CHEST + ABD/PEL W CONTRAST Stat 07/30/2018 12:49 AM CDT URINALYSIS W/REFLEX MICROSCOPIC Stat 07/29/2018 11:04 PM CDT HCG QUALITATIVE, URINE Stat 07/29/2018 11:04 PM CDT POC GLUCOSE Stat 07/29/2018 10:56 PM CDT CBC WITH DIFFERENTIAL Stat 07/29/2018 10:56 PM CDT LIPASE Stat 07/29/2018 10:56 PM CDT LIPID PANEL Stat 07/29/2018 10:56 PM CDT COMPREHENSIVE METABOLIC PANEL Stat 07/29/2018 10:56 PM CDT documented in this encounter Results * (ABNORMAL) POC GLUCOSE (08/03/2018 10:10 AM CDT) GLUCOSE POC 140(H) 74 - 99 mg/dL 08/03/2018 10:23 AM CDT [facility] TANKER TRUCK DRIVER NAME POC KATI DUMONT 08/03/2018 10:23 AM CDT [facility] [employer] [facility] Whole blood specimen (specimen) 08/03/2018 10:10 AM CDT 08/03/2018 10:22 AM CDT Sanjuana Sellers MD POINT OF CARE TESTI [facility] [employer] [facility]# [id number] [address] [facility] [place] [id number] * (ABNORMAL) TRIGLYCERIDE (08/03/2018 4:31 AM CDT) TRIGLYCERIDE 677(H) <150 mg/dL 08/03/2018 5:53 AM CDT [facility] [employer] [facility] Blood Venipuncture / Unknown 08/03/2018 4:31 AM CDT 08/03/2018 4:40 AM CDT Narrative [facility] - 08/03/2018 5:53 AM CDT TRIGLYCERIDES ? mg/dL Normal ?< 150 Borderline High ?150 - 199 High ? 200 - 499 Very High ? >= 500 Based on AHA/NCEP Guidelines. Sanjuana Sellers MD CHEMISTRY ORDERABLE S [facility] - [facility] KARLEE# [id number] [address] [facility] [place] [place] [id number] * (ABNORMAL) BASIC METABOLIC PANEL (08/03/2018 4:31 AM CDT) SODIUM 140 136 - 145 mmol/L 08/03/2018 5:53 AM CDT [facility] - [facility] POTASSIUM 3.6 3.5 - 5.0 mmol/L 08/03/2018 5:53 AM CDT [facility] CHLORIDE 102 98 - 107 mmol/L 08/03/2018 5:53 AM CDT [facility] CO2 28 22 - 29 mmol/L 08/03/2018 5:53 AM CDT [facility] CALCIUM 8.6 8.6 - 10.2 mg/dL 08/03/2018 5:53 AM CDT [facility] BUN 6 6 - 20 mg/dL 08/03/2018 5:53 AM CDT [facility] CREATININE 0.62 0.51 - 0.95 mg/dL 08/03/2018 5:53 AM T [facility] GLUCOSE 151(H) 74 - 99 mg/dL 08/03/2018 5:53 AM CDT [facility] GFR >60 >=60 mL/min/1.7 3 sq meter 08/03/2018 5:53 AM CDT [facility] Comment: eGFR [...] GFR, >60 >=60 mL/min/1.7 3 sq meter 08/03/2018 5:53 AM CDT [facility] ANION GAP 10 8 - 16 mmol/L 08/03/2018 5:53 AM CDT [facility] Blood Venipuncture / Unknown 08/03/2018 4:31 AM CDT 08/03/2018 4:40 AM CDT Sanjuana Selelrs MD CHEMISTRY ORDERABLE S Performing Organization Address [facility]/ZIP Co de Phone Number [facility]# [id number] [address] [place] [address] * (ABNORMAL) POC GLUCOSE (08/02/2018 8:07 PM CDT) GLUCOSE POC 158(H) 74 - 99 mg/dL 08/02/2018 8:26 PM CDT [facility] T[employer]ER TRUCK DRIVER NAME FANY AKHTAR 08/02/2018 8:26 PM CDT [facility] Whole blood specimen (specimen) 08/02/2018 8:07 PM CDT 08/02/2018 8:26 PM CDT Sanjuana Sellers MD POINT OF CARE TESTI NG Performing Organization Address [facility]/ZIP Co de Phone Number [facility]# [id number] [address] [place] [address] * (ABNORMAL) POC GLUCOSE (08/02/2018 6:10 PM CDT) GLUCOSE POC 189(H) 74 - 99 mg/dL 08/02/2018 6:22 PM CDT [facility] [employer] T[employer] TR[employer] DRIVER NAME POC JUJU ARGUELLO 08/02/2018 6:22 PM CDT [facility] Whole blood specimen (specimen) 08/02/2018 6:10 PM CDT 08/02/2018 6:22 PM CDT Sanjuana Sellers MD POINT OF CARE TESTI NG Performing Organization Address [facility] Co de Phone Number [facility] [id number] [address] [facility] [place] [place] [address] * (ABNORMAL) POC GLUCOSE (08/02/2018 12:05 PM CDT) GLUCOSE POC 152(H) 74 - 99 mg/dL 08/02/2018 5:46 PM CDT [facility] COMMENT, GLU POC Notified RN/ 08/02/2018 5:46 PM CDT [facility] - [facility] [employer] DRIVER NAME POC RAFAELA COOPER 08/02/2018 5:46 PM CDT [facility] Whole blood specimen (specimen) 08/02/2018 12:05 PM CDT 08/02/2018 5:46 PM CDT Sanjuana Sellers MD POINT OF CARE TESTChris NG Performing Organization Address [facility] Co de Phone Number [facility]# [id number] [address] [place] [address] [address] [place] [address] * (ABNORMAL) POC GLUCOSE (08/02/2018 9:27 AM CDT) GLUCOSE POC 134(H) 74 - 99 mg/dL 08/02/2018 9:40 AM CDT [employer] [facility]AT[facility] SERVICES [facility] COMMENT, GLU POC Notified RN/ 08/02/2018 9:40 AM CDT [facility] [employer] T[employer] DRIVER NAME POC RAFAELA COOPER 08/02/2018 9:40 AM CDT [facility] Whole blood specimen (specimen) 08/02/2018 9:27 AM CDT 08/02/2018 9:40 AM CDT Sanjunaa Sellers MD POINT OF CARE TESTI NG [facility] CLIA# [id number] [address] [place] [address] * EKG 12-LEAD (08/02/2018 8:41 AM CDT) 08/02/2018 8:41 AM CDT Narrative INTERFACE SYSTEM - 08/03/2018 10:50 AM CDT ? Stationary ECG Study ? [facility] ? Test Date: ?08/02/2018 8:41 AM Pat Name: ? CASANDRA DOSS ?Department: ?? 45 ?Room: ? 5324 Gender: ? F ?Sql Ssis Developer: ?? [email or web address] : ?1975 ? Requested By: JAM MARTINEZ Order Number: [id number] ?Nato CARNEY: ?? Jovany Christie ? Measurements Intervals ?[place] ? Rate: ? 75 ? P: ?51 MI: ? 172 ?QRS: ?36 QRSD: ? 88 ? T: ?-13 QT: ? 382 ? QTc: ?427 ? Interpretive Statements ? Sinus rhythm Low voltage, precordial leads Borderline T abnormalities, diffuse leads Electronically Signed On 08-03-2018 10:50:50 CDT by Jovany Christie Procedure Jovany Hernandez MD - 09/23/2020 Stationary ECG Study [facility] Test Date: 08/02/2018 8:41 AM Pat Name: CASANDRA DOSS Department: 45 Room: 5324 Gender: F Sql Ssis Developer: [email or web address] : 1975 Requested By: JAM MARTINEZ Order Number: [id number] Nato MD: Jovany Christie Measurements Intervals [place] Rate: 75 P: 51 MI: 172 QRS: 36 QRSD: 88 T: -13 QT: 382 QTc: 427 Interpretive Statements Sinus rhythm Low voltage, precordial leads Borderline T abnormalities, diffuse leads Electronically Signed On 08-03-2018 10:50:50 CDT by Jovany Christie Sanjuana Sellers MD ECG ORDERABLES INTERFACE SYSTEM Refer to clinic/hospital department * (ABNORMAL) POC GLUCOSE (08/02/2018 5:52 AM CDT) GLUCOSE POC 136(H) 74 - 99 mg/dL 08/02/2018 6:07 AM CDT [facility] COMMENT, GLU POC Notified RN/MD 08/02/2018 6:07 AM CDT [facility] T[employer]ER TR[employer] DRIVER NAME POC TYE VALDEZ 08/02/2018 6:07 AM CDT [facility] Whole blood specimen (specimen) 08/02/2018 5:52 AM CDT 08/02/2018 6:07 AM CDT Sanjuana Sellers MD POINT OF CARE TESTI NG Performing Organization Address City/[facility]/ZIP Co de Phone Number [facility] [employer] [facility]# [id number] [address] [place] [facility] [place] [place] [id number] * (ABNORMAL) TRIGLYCERIDE (08/02/2018 4:50 AM CDT) TRIGLYCERIDE 717(H) <150 mg/dL 08/02/2018 5:48 AM CDT [facility] Blood Venipuncture / Unknown 08/02/2018 4:50 AM CDT 08/02/2018 4:59 AM CDT Narrative [facility] - 08/02/2018 5:48 AM CDT TRIGLYCERIDES ? mg/dL Normal ?< 150 Borderline High ?150 - 199 High ? 200 - 499 Very High ? >= 500 Based on AHA/NCEP Guidelines. Sanjuana Sellers MD CHEMISTRY ORDERABLE S [facility] CLIA# [id number] [address] [facility] [place] [id number] * (ABNORMAL) CBC WITH DIFFERENTIAL (08/02/2018 4:50 AM CDT) [facility] WBC 6.4 4.0 - 9.8 K/uL 08/02/2018 7:54 AM CDT [facility] - [facility] RBC 3.76(L) 3.90 - 4.90 M/uL 08/02/2018 7:54 AM CDT [facility] HEMOGLOBIN 11.3(L) 11.8 - 14.8 g/dL 08/02/2018 7:54 AM CDT [facility] HEMATOCRIT 34.8(L) 35.5 - 44.0 % 08/02/2018 7:54 AM CDT [facility] - [facility] [facility] MCV 92.6 82.0 - 99.0 fL 08/02/2018 7:54 AM CDT [facility] MCH 30.1 27.2 - 32.6 pg 08/02/2018 7:54 AM CDT [facility] MCHC 32.5 31.5 - 35.5 g/dL 08/02/2018 7:54 AM CDT [facility] RDW 13.5 11.5 - 14.5 % 08/02/2018 7:54 AM CDT [facility] RDW-STDEV 45.8 37.1 - 48.7 fL 08/02/2018 7:54 AM CDT [facility] PLATELETS 180 140 - 350 K/uL 08/02/2018 7:54 AM CDT [facility] MPV 9.5 9.3 - 12.4 fL 08/02/2018 7:54 AM CDT [facility] NEUTROPHILS 57 % 08/02/2018 7:54 AM CDT [facility] - . [facility] LYMPHOCYTES 35 % 08/02/2018 7:54 AM CDT [facility] - . [facility] MONOCYTES 6 % 08/02/2018 7:54 AM CDT [facility] - . [facility] EOSINOPHILS 1 % 08/02/2018 7:54 AM CDT [facility] - . [facility] BASOPHILS 0 % 08/02/2018 7:54 AM CDT [facility] - . [facility] IMMATURE GRANULOCYTES 1 % 08/02/2018 7:54 AM CDT [facility] SERVICES - . [facility] Comment:IG (Immature Granulo cyte) count includes Metamyelocytes, Myelocytes, and Promyelocytes NEUTROPHIL ABSOLUTE 3.65 1.90 - 7.00 K/uL 08/02/2018 7:54 AM CDT [facility] - . [facility] LYMPHOCYTE ABSOLUTE 2.27 0.70 - 4.50 K/uL 08/02/2018 7:54 AM CDT [facility] - . [facility] MONOCYTE ABSOLUTE 0.38 0.10 - 1.30 K/uL 08/02/2018 7:54 AM CDT [facility] - . [facility] EOSINOPHIL ABSOLUTE 0.05 0.00 - 0.70 K/uL 08/02/2018 7:54 AM CDT [facility] SERVICES - . [facility] BASOPHILS ABSOLUTE 0.02 0.00 - 0.20 K/uL 08/02/2018 7:54 AM CDT [facility] - . [facility] IMMATURE GRANULOCYTES ABSOLUTE 0.04(H) 0.00 - 0.03 K/uL 08/02/2018 7:54 AM T [facility] Blood Venipuncture / Unknown 08/02/2018 4:50 AM CDT 08/02/2018 4:59 AM CDT Sanjuana Sellers MD HEMATOLOGY ORDERABL ES [facility] CLIA# [id number] [address] [facility] [place] [address] * (ABNORMAL) COMPREHENSIVE METABOLIC PANEL (08/02/2018 4:50 AM CDT) [facility] SODIUM 139 136 - 145 mmol/L 08/02/2018 5:48 AM [facility] POTASSIUM 3.5 3.5 - 5.0 mmol/L 08/02/2018 5:48 AM [facility] CHLORIDE 103 98 - 107 mmol/L 08/02/2018 5:48 AM [facility] CO2 26 22 - 29 mmol/L 08/02/2018 5:48 AM [facility] CALCIUM 8.4(L) 8.6 - 10.2 mg/dL 08/02/2018 5:48 AM [facility] BUN 3(L) 6 - 20 mg/dL 08/02/2018 5:48 AM [facility] CREATININE 0.58 0.51 - 0.95 mg/dL 08/02/2018 5:48 AM [facility] - [facility] GLUCOSE 144(H) 74 - 99 mg/dL 08/02/2018 5:48 AM [employer] [facility] TOTAL PROTEIN 5.8(L) 6.7 - 8.6 g/dL 08/02/2018 5:48 AM [facility] ALBUMIN 3.8 3.5 - 5.2 g/dL 08/02/2018 5:48 AM [facility] BILIRUBIN TOTAL 0.2(L) 0.3 - 1.2 mg/dL 08/02/2018 5:48 AM [employer] [facility] - . [facility] ALKALINE PHOSPHATASE 39 35 - 104 U/L 08/02/2018 5:48 AM [employer] [facility] AST 14 <33 U/L 08/02/2018 5:48 AM [employer] [facility] - [facility] ALT 9 <34 U/L 08/02/2018 5:48 AM [employer] [facility] - . [facility] GFR >60 >=60 mL/min/1.7 3 sq meter 08/02/2018 5:48 AM [employer] [facility] - . [facility] Comment: eGFR has [...] GFR, >60 >=60 mL/min/1.7 3 sq meter 08/02/2018 5:48 AM CDT [facility] LABORATORY SERVICES [facility] ANION GAP 10 8 - 16 mmol/L 08/02/2018 5:48 AM CDT [facility] Blood Venipuncture / Unknown 08/02/2018 4:50 AM CDT 08/02/2018 4:59 AM CDT Narrative [facility] SERVICES [facility] - 08/02/2018 5:48 AM CDT Samples containing indocyanine green cause interferences on Total and/or Direct Bilirubin and must not be measured. Sanjuana Sellers MD CHEMISTRY ORDERABLE S Performing Organization Address [facility] Co de Phone Number [facility] [employer] [facility]# [id number] [address] [place] [address] * (ABNORMAL) POC GLUCOSE (08/02/2018 2:17 AM CDT) GLUCOSE POC 155(H) 74 - 99 mg/dL 08/02/2018 2:32 AM CDT [facility] [employer] NAME POC FANY PAUL 08/02/2018 2:32 AM CDT [facility] Whole blood specimen (specimen) 08/02/2018 2:17 AM CDT 08/02/2018 2:31 AM CDT Sanjuana Sellers MD POINT OF CARE TESTI NG Performing Organization Address City/[facility]/ZIP Co de Phone Number [facility] [employer] [facility] CLIA# [id number] [address] [place] [address] * (ABNORMAL) POC GLUCOSE (08/01/2018 11:13 PM CDT) GLUCOSE POC 141(H) 74 - 99 mg/dL 08/01/2018 11:27 PM CDT [facility] LABORATORY SERVICES [facility] COMMENT, GLU POC Notified RN/MD 08/01/2018 11:27 PM CDT [facility] LABORATORY SERVICES [facility] [employer] DR[employer] NAME POC TYE VALDEZ 08/01/2018 11:27 PM CDT [facility]ORATORY SERVICES [facility] Whole blood specimen (specimen) 08/01/2018 11:13 PM CDT 08/01/2018 11:27 PM CDT Sanjuana Sellers MD POINT OF CARE TESTChris WOLF Performing Organization Address City/[facility]/ZIP Co de Phone Number [facility] LAB[facility] CLIA# [id number] [address] [place] [address] * (ABNORMAL) POC GLUCOSE (08/01/2018 9:53 PM CDT) GLUCOSE POC 158(H) 74 - 99 mg/dL 08/01/2018 10:06 PM CDT [facility] [employer] DR[employer] NAME POC ZAINAB HART 08/01/2018 10:06 PM CDT [facility] Whole blood specimen (specimen) 08/01/2018 9:53 PM CDT 08/01/2018 10:06 PM CDT Sanjuana Sellers MD POINT OF CARE TESTChris WOLF [facility] CLIA# [id number] [address] [place] [address] * (ABNORMAL) POC GLUCOSE (08/01/2018 8:01 PM CDT) GLUCOSE POC 166(H) 74 - 99 mg/dL 08/01/2018 8:18 PM CDT [facility] - [facility] [employer] DRIVER NAME POC YULIANA GAFFNEY 08/01/2018 8:18 PM CDT [facility] LABORATORY SERVICES [facility] Whole blood specimen (specimen) 08/01/2018 8:01 PM CDT 08/01/2018 8:18 PM CDT Sanjuana Sellers MD POINT OF CARE TESTI LUCIANO Performing Organization Address [facility] Phone Number [facility]ORY [facility]# [id number] [address] [place] [address] [place] [id number] * (ABNORMAL) POC GLUCOSE (08/01/2018 3:45 PM CDT) GLUCOSE POC 145(H) 74 - 99 mg/dL 08/01/2018 3:57 PM CDT [facility] LABORATORY SERVICES [facility] COMMENT, GLU POC Notified RN/ 08/01/2018 3:57 PM CDT [facility] LABORATORY SERVICES [facility] [employer] DRIVER NAME POC AMANDA CARDONA 08/01/2018 3:57 PM CDT [facility]ATORY SERVICES [facility] Whole blood specimen (specimen) 08/01/2018 3:45 PM CDT 08/01/2018 3:57 PM CDT Sanjuana Sellers MD POINT OF CARE TESTChris WOLF Performing Organization Address [facility] Phone Number [facility]# [id number] [address] [place] [address] [place] [id number] * (ABNORMAL) POC GLUCOSE (08/01/2018 12:10 PM CDT) GLUCOSE POC 124(H) 74 - 99 mg/dL 08/01/2018 12:26 PM CDT [facility] LABORATORY SERVICES [facility] COMMENT, GLU POC Notified RN/ 08/01/2018 12:26 PM CDT [facility] LABORATORY SERVICES [facility] [employer] DRIVER NAME POC GWEN CARDONAE 08/01/2018 12:26 PM CDT [facility] LABORATORY SERVICES [facility] Whole blood specimen (specimen) 08/01/2018 12:10 PM CDT 08/01/2018 12:26 PM CDT Sanjuana Sellers MD POINT OF CARE TESTChris WOLF Performing Organization Address [facility] Co de Phone Number [facility]# [id number] [address] [place] [address] * (ABNORMAL) POC GLUCOSE (08/01/2018 8:16 AM CDT) GLUCOSE POC 125(H) 74 - 99 mg/dL 08/01/2018 8:31 AM CDT [facility] LABORATORY SERVICES [facility] COMMENT, GLU POC Notified RN/MD 08/01/2018 8:31 AM CDT [facility] LABORATORY SERVICES [facility] [employer] DRIVER NAME POC AMANDA CARDONA 08/01/2018 8:31 AM CDT [facility] Whole blood specimen (specimen) 08/01/2018 8:16 AM CDT 08/01/2018 8:31 AM CDT Sanjuana Sellers MD POINT OF CARE TESTChris WOLF Performing Organization Address [facility]/ZIP Co de Phone Number [facility] [employer] [facility]# [id number] [address] [place] [address] * (ABNORMAL) TRIGLYCERIDE (08/01/2018 4:09 AM CDT) TRIGLYCERIDE 739(H) <150 mg/dL 08/01/2018 4:53 AM CDT [facility] Blood Venipuncture / Unknown 08/01/2018 4:09 AM CDT 08/01/2018 4:16 AM CDT Narrative [facility] LAB[facility] - 08/01/2018 4:53 AM CDT TRIGLYCERIDES ? mg/dL Normal ?< 150 Borderline High ?150 - 199 High ? 200 - 499 Very High ? >= 500 Based on AHA/NCEP Guidelines. Sanjuana Sellers MD CHEMISTRY ORDERABLE S [facility] - [facility] CLIA# [id number] [address] [facility] [place] [id number] * (ABNORMAL) CBC WITH DIFFERENTIAL (08/01/2018 4:09 AM CDT) [facility] WBC 6.9 4.0 - 9.8 K/uL 08/01/2018 4:27 AM CDT [facility] RBC 3.72(L) 3.90 - 4.90 M/uL 08/01/2018 4:27 AM CDT [facility] HEMOGLOBIN 11.1(L) 11.8 - 14.8 g/dL 08/01/2018 4:27 AM CDT [facility] HEMATOCRIT 34.0(L) 35.5 - 44.0 % 08/01/2018 4:27 AM CDT [facility] MCV 91.4 82.0 - 99.0 fL 08/01/2018 4:27 AM CDT [facility] MCH 29.8 27.2 - 32.6 pg 08/01/2018 4:27 AM CDT [facility] MCHC 32.6 31.5 - 35.5 g/dL 08/01/2018 4:27 AM CDT [facility] RDW 13.8 11.5 - 14.5 % 08/01/2018 4:27 AM CDT [facility] RDW-STDEV 47.2 37.1 - 48.7 fL 08/01/2018 4:27 AM CDT [facility] PLATELETS 170 140 - 350 K/uL 08/01/2018 4:27 AM CDT [facility] MPV 9.2(L) 9.3 - 12.4 fL 08/01/2018 4:27 AM CDT [facility] NEUTROPHILS 57 % 08/01/2018 4:27 AM CDT [facility] - [facility] LYMPHOCYTES 36 % 08/01/2018 4:27 AM CDT [facility] MONOCYTES 6 % 08/01/2018 4:27 AM CDT [facility] EOSINOPHILS 1 % 08/01/2018 4:27 AM CDT [facility] BASOPHILS 0 % 08/01/2018 4:27 AM CDT [facility] IMMATURE GRANULOCYTES 0 % 08/01/2018 4:27 AM CDT [facility] - [facility] NEUTROPHIL ABSOLUTE 3.89 1.90 - 7.00 K/uL 08/01/2018 4:27 AM CDT [facility] - [facility] LYMPHOCYTE ABSOLUTE 2.47 0.70 - 4.50 K/uL 08/01/2018 4:27 AM CDT [facility] - [facility] MONOCYTE ABSOLUTE 0.39 0.10 - 1.30 K/uL 08/01/2018 4:27 AM CDT [facility] - [facility] EOSINOPHIL ABSOLUTE 0.06 0.00 - 0.70 K/uL 08/01/2018 4:27 AM CDT [facility] BASOPHILS ABSOLUTE 0.02 0.00 - 0.20 K/uL 08/01/2018 4:27 AM T [facility] IMMATURE GRANULOCYTES ABSOLUTE 0.03 0.00 - 0.03 K/uL 08/01/2018 4:27 AM T [facility] Blood Venipuncture / Unknown 08/01/2018 4:09 AM CDT 08/01/2018 4:16 AM CDT Sanjuana Sellers MD HEMATOLOGY ORDERABL ES [facility]# [id number] [address] [place] [address] * (ABNORMAL) COMPREHENSIVE METABOLIC PANEL (08/01/2018 4:09 AM CDT) SODIUM 137 136 - 145 mmol/L 08/01/2018 4:55 AM CDT [facility] POTASSIUM 3.6 3.5 - 5.0 mmol/L 08/01/2018 4:55 AM [facility] CHLORIDE 106 98 - 107 mmol/L 08/01/2018 4:55 AM [facility] CO2 24 22 - 29 mmol/L 08/01/2018 4:55 AM [facility] - . [facility] CALCIUM 8.0(L) 8.6 - 10.2 mg/dL 08/01/2018 4:55 AM [facility] Comment:Significant change f rom prior result, correlate clinically and redraw if necessary. BUN 3(L) 6 - 20 mg/dL 08/01/2018 4:55 AM [facility] [facility] CREATININE 0.49(L) 0.51 - 0.95 mg/dL 08/01/2018 4:55 AM [facility] [employer] [facility] - . [facility] GLUCOSE 106(H) 74 - 99 mg/dL 08/01/2018 4:55 AM [facility] - . [facility] TOTAL PROTEIN 5.4(L) 6.7 - 8.6 g/dL 08/01/2018 4:55 AM [facility]AT[facility] - . [facility] ALBUMIN 3.7 3.5 - 5.2 g/dL 08/01/2018 4:55 AM [facility] LABORATORY [facility] - . [facility] BILIRUBIN TOTAL 0.2(L) 0.3 - 1.2 mg/dL 08/01/2018 4:55 AM [facility] LABORATORY [facility] - [facility] ALKALINE PHOSPHATASE 34(L) 35 - 104 U/L 08/01/2018 4:55 AM [facility] [employer] [facility] - . [facility] AST 10 <33 U/L 08/01/2018 4:55 AM [facility] LABORATORY [facility] - . [facility] ALT 7 <34 U/L 08/01/2018 4:55 AM [facility] [employer] [facility]. [facility] GFR >60 >=60 mL/min/1.7 3 sq meter 08/01/2018 4:55 AM [facility] Comment: eGFR has not been validated for [...] GFR, >60 >=60 mL/min/1.7 3 sq meter 08/01/2018 4:55 AM CDT [facility] LABORATORY SERVICES [facility] ANION GAP 7(L) 8 - 16 mmol/L 08/01/2018 4:55 AM CDT [facility] Blood Venipuncture / Unknown 08/01/2018 4:09 AM CDT 08/01/2018 4:16 AM CDT Narrative [facility] LABORATORY SERVICES [facility] - 08/01/2018 4:55 AM CDT Samples containing indocyanine green cause interferences on Total and/or Direct Bilirubin and must not be measured. Sanjuana Sellers MD CHEMISTRY ORDERABLE S Performing Organization Address City/[facility]/ZIP Co de Phone Number [facility] [employer] [facility] [id number] [address] [place] [address] * (ABNORMAL) POC GLUCOSE (08/01/2018 3:52 AM CDT) GLUCOSE POC 110(H) 74 - 99 mg/dL 08/01/2018 4:12 AM CDT [facility] [employer] DRIVER NAME POC PHYLLIS MADERA 08/01/2018 4:12 AM CDT [facility] Whole blood specimen (specimen) 08/01/2018 3:52 AM CDT 08/01/2018 4:12 AM CDT Sanjuana Sellers MD POINT OF CARE TESTI NG Performing Organization Address City/[facility]/ZIP Co de Phone Number [facility] [employer] [facility] CLIA# [id number] [address] [place] [address] * POC GLUCOSE (08/01/2018 12:20 AM CDT) GLUCOSE POC 92 74 - 99 mg/dL 08/01/2018 12:33 AM CDT [facility] LABORATORY SERVICES - [facility] [employer] DR[employer] NAME PHYLLIS GARCÍA 08/01/2018 12:33 AM CDT [facility] - [facility] Whole blood specimen (specimen) 08/01/2018 12:20 AM CDT 08/01/2018 12:33 AM CDT Sanjuana Sellers MD POINT OF CARE TESTI LUCIANO [facility] CLIA# [id number] [address] [place] [address] * POC GLUCOSE (07/31/2018 8:05 PM CDT) GLUCOSE POC 98 74 - 99 mg/dL 07/31/2018 8:27 PM CDT [facility] LABORATORY SERVICES [facility] [employer] DRIVER NAME PHYLLIS GARCÍA 07/31/2018 8:27 PM CDT [facility] LABORATORY SERVICES [facility] Whole blood specimen (specimen) 07/31/2018 8:05 PM CDT 07/31/2018 8:27 PM CDT Sanjuana Sellers MD POINT OF CARE TESTI NG [facility] CLIA# [id number] [address] [place] [address] * POC GLUCOSE (07/31/2018 5:02 PM CDT) GLUCOSE POC 83 74 - 99 mg/dL 07/31/2018 5:16 PM CDT [facility] LABORATORY SERVICES [facility] [employer] DRIVER NAME JEFF ZAVALA 07/31/2018 5:16 PM CDT [facility] LABORATORY SERVICES [facility] Whole blood specimen (specimen) 07/31/2018 5:02 PM CDT 07/31/2018 5:16 PM CDT Sanjuana Sellers MD POINT OF CARE TESTI NG [facility] CLIA# [id number] [address] [place] [address] * POC GLUCOSE (07/31/2018 4:09 PM CDT) GLUCOSE POC 78 74 - 99 mg/dL 07/31/2018 4:21 PM CDT [facility] LABORATORY SERVICES [facility] [employer] DRIVER NAME POC JEFF TORRES 07/31/2018 4:21 PM CDT [facility] LABORATORY SERVICES [facility] Whole blood specimen (specimen) 07/31/2018 4:09 PM CDT 07/31/2018 4:21 PM CDT Sanjuana Sellers MD POINT OF CARE TESTI NG Performing Organization Address [facility]/ZIP Co de Phone Number [facility] [employer] [facility] CLIA# [id number] [address] [place] [address] * (ABNORMAL) POC GLUCOSE (07/31/2018 12:45 PM CDT) GLUCOSE POC 104(H) 74 - 99 mg/dL 07/31/2018 1:54 PM CDT [facility] LABORATORY SERVICES [facility] [employer] DRIVER NAME POC JEFF TORRES 07/31/2018 1:54 PM CDT [facility] SERVICES [facility] Whole blood specimen (specimen) 07/31/2018 12:45 PM CDT 07/31/2018 1:54 PM CDT Sanjuana Sellers MD POINT OF CARE TESTI NG Performing Organization Address City/[facility]/ZIP Co de Phone Number [facility] CLIA# [id number] [address] [place] [address] * PROTIME-INR (07/31/2018 9:36 AM CDT) Pathologist [facility] PROTIME 13.2 12.7 - 15.1 Seconds 07/31/2018 10:13 AM CDT [facility] INR 1.0 0.9 - 1.1 07/31/2018 10:13 AM CDT [facility] Blood Venipuncture / Unknown 07/31/2018 9:36 AM CDT 07/31/2018 9:42 AM CDT Narrative [facility] - 07/31/2018 10:13 AM CDT INR Therapeutic Range: Adult: ?? 2.0 - 3.0 for pulmonary embolism or prophylaxis against venous ?thrombosis or systemic embolization. 2.0 - 3.0 for patients with tissue heart valves. 2.5 - 3.5 for patients with mechanical heart valves or post TX. Pediatric ??(12 years and under): 1.5 - 3.0 Although the target range in children is not well established, ?INR values of 1.5 - 3.0 are recommended for most patients. ?Higher values have been used in children with prosthetic ?cardiac valves and hereditary clotting disorders. (<3 days) therapeutic ranges have not been established. Alize Arteaga MD HEMATOLOGY YONI SERRAN[facility] Organization Address City/State/ZIP Co de Phone Number [facility] [employer] [facility]# [id number] [address] [facility] [place] [address] * (ABNORMAL) POC GLUCOSE (07/31/2018 9:35 AM CDT) Pathologist [facility] GLUCOSE POC 108(H) 74 - 99 mg/dL 07/31/2018 10:02 AM CDT [facility] [employer] DR[employer] NAME POC JEFF TORRES 07/31/2018 10:02 AM CDT [facility] Whole blood specimen (specimen) 07/31/2018 9:35 AM CDT 07/31/2018 10:02 AM CDT Sanjuana Sellers MD POINT OF CARE TESTI NG Performing Organization Address [facility] de Phone Number [facility]# [id number] [address] [place] [address] * LACTIC ACID (07/31/2018 3:20 AM CDT) LACTIC ACID 1.1 0.5 - 2.0 mmol/L 07/31/2018 3:54 AM CDT [facility] Blood Venipuncture / Unknown 07/31/2018 3:20 AM CDT 07/31/2018 3:28 AM CDT Ericka Leone NP CHEMISTRY ORDERABLES Performing Organization Address [facility] de Phone Number [facility]# [id number] [address] [place] [id number] * (ABNORMAL) TRIGLYCERIDE (07/31/2018 3:20 AM CDT) TRIGLYCERIDE 769(H) <150 mg/dL 07/31/2018 4:01 AM CDT [facility] [employer] [facility] Blood Venipuncture / Unknown 07/31/2018 3:20 AM CDT 07/31/2018 3:29 AM CDT Narrative [facility] [employer] [facility] - 07/31/2018 4:01 AM CDT TRIGLYCERIDES ? mg/dL Normal ?< 150 Borderline High ?150 - 199 High ? 200 - 499 Very High ? >= 500 Based on AHA/NCEP Guidelines. Sanjuana Sellers MD CHEMISTRY ORDERABLE S Performing Organization Address [facility] Phone Number [employer] CLIA# [id number] [address] [place] [id number] * (ABNORMAL) CBC WITH DIFFERENTIAL (07/31/2018 3:20 AM CDT) [facility] Signature WBC 5.8 4.0 - 9.8 K/uL 07/31/2018 3:38 AM CDT [facility] RBC 3.54(L) 3.90 - 4.90 M/uL 07/31/2018 3:38 AM CDT [facility] HEMOGLOBIN 11.0(L) 11.8 - 14.8 g/dL 07/31/2018 3:38 AM CDT [facility] HEMATOCRIT 33.2(L) 35.5 - 44.0 % 07/31/2018 3:38 AM CDT [facility] MCV 93.8 82.0 - 99.0 fL 07/31/2018 3:38 AM CDT [facility] MCH 31.1 27.2 - 32.6 pg 07/31/2018 3:38 AM CDT [facility] . [facility] MCHC 33.1 31.5 - 35.5 g/dL 07/31/2018 3:38 AM CDT [facility] RDW 14.0 11.5 - 14.5 % 07/31/2018 3:38 AM CDT [facility] . [facility] RDW-STDEV 48.3 37.1 - 48.7 fL 07/31/2018 3:38 AM CDT [facility] PLATELETS 140 140 - 350 K/uL 07/31/2018 3:38 AM CDT [facility] MPV 10.3 9.3 - 12.4 fL 07/31/2018 3:38 AM CDT [facility] NEUTROPHILS 50 % 07/31/2018 3:38 AM CDT [facility] LYMPHOCYTES 40 % 07/31/2018 3:38 AM CDT [facility] MONOCYTES 8 % 07/31/2018 3:38 AM CDT [facility] EOSINOPHILS 1 % 07/31/2018 3:38 AM CDT [facility] BASOPHILS 0 % 07/31/2018 3:38 AM CDT [facility] IMMATURE GRANULOCYTES 1 % 07/31/2018 3:38 AM CDT [facility] Comment:IG (Immature Granulo cyte) count includes Metamyelocytes, Myelocytes, and Promyelocytes NEUTROPHIL ABSOLUTE 2.92 1.90 - 7.00 K/uL 07/31/2018 3:38 AM CDT [facility] LYMPHOCYTE ABSOLUTE 2.33 0.70 - 4.50 K/uL 07/31/2018 3:38 AM CDT [facility] MONOCYTE ABSOLUTE 0.47 0.10 - 1.30 K/uL 07/31/2018 3:38 AM CDT [facility] EOSINOPHIL ABSOLUTE 0.05 0.00 - 0.70 K/uL 07/31/2018 3:38 AM CDT [facility] BASOPHILS ABSOLUTE 0.02 0.00 - 0.20 K/uL 07/31/2018 3:38 AM CDT [facility] IMMATURE GRANULOCYTES ABSOLUTE 0.04(H) 0.00 - 0.03 K/uL 07/31/2018 3:38 AM CDT [facility] Blood Venipuncture / Unknown 07/31/2018 3:20 AM CDT 07/31/2018 3:29 AM CDT Sanjuana Sellers MD HEMATOLOGY ORDERABL ES [facility] [id number] [address] [facility] [place] [id number] * (ABNORMAL) COMPREHENSIVE METABOLIC PANEL (07/31/2018 3:20 AM CDT) SODIUM 138 136 - 145 mmol/L 07/31/2018 4:15 AM CDT [facility] POTASSIUM 4.6 3.5 - 5.0 mmol/L 07/31/2018 4:15 AM [facility] Comment: Moderate hemolysis present. ??Can cause significant falsely elevated result. ??Clinical judgement necessary. ??Redraw if indicated. CHLORIDE 111(H) 98 - 107 mmol/L 07/31/2018 4:15 AM [facility] Comment: Significant change from prior result, correlate clinically and redraw if necessary. Results called to Delaney. Coleman to report 04:14 on 07/31/2018. CO2 20(L) 22 - 29 mmol/L 07/31/2018 4:15 AM [facility] CALCIUM 6.9(L) 8.6 - 10.2 mg/dL 07/31/2018 4:15 AM [facility] Comment: Significant change from prior result, correlate clinically and redraw if necessary. Results called to Delaney. Coleman to report 04:14 on 07/31/2018. BUN 5(L) 6 - 20 mg/dL 07/31/2018 4:15 AM [facility] [employer] [facility] CREATININE 0.48(L) 0.51 - 0.95 mg/dL 07/31/2018 4:15 AM [facility] GLUCOSE 88 74 - 99 mg/dL 07/31/2018 4:15 AM [facility] TOTAL PROTEIN 4.9(L) 6.7 - 8.6 g/dL 07/31/2018 4:15 AM [facility] [employer] [facility] ALBUMIN 3.4(L) 3.5 - 5.2 g/dL 07/31/2018 4:15 AM [facility] BILIRUBIN TOTAL 0.5 0.3 - 1.2 mg/dL 07/31/2018 4:15 AM [facility] ALKALINE PHOSPHATASE 21(L) 35 - 104 U/L 07/31/2018 4:15 AM [facility] AST 20 <33 U/L 07/31/2018 4:15 AM [facility] [employer] [facility] Comment: Hemolysis present. Result may be falsely elevated. ALT 7 <34 U/L 07/31/2018 4:15 AM [facility] [employer] [facility] Comment: Hemolysis present. Result may be falsely elevated. GFR >60 >=60 mL/min/1.7 3 sq meter 07/31/2018 4:15 AM T [facility] [employer] [facility] Comment: eGFR has not been validated for [...] GFR, >60 >=60 mL/min/1.7 3 sq meter 07/31/2018 4:15 AM T [facility] [employer] [facility] ANION GAP 7(L) 8 - 16 mmol/L 07/31/2018 4:15 AM [facility] Blood Venipuncture / Unknown 07/31/2018 3:20 AM CDT 07/31/2018 3:29 AM CDT Narrative [facility] - 07/31/2018 4:15 AM CDT Patient had plasmapheresis yesterday Samples containing indocyanine green cause interferences on Total and/or Direct Bilirubin and must not be measured. Sanjuana Sellers MD CHEMISTRY ORDERABLE S Performing Organization Address City/State/[facility] Co de Phone Number [facility] [employer] [facility]# [id number] [address] [place] [address] * (ABNORMAL) POC GLUCOSE (07/30/2018 9:25 PM CDT) GLUCOSE POC 137(H) 74 - 99 mg/dL 07/30/2018 9:53 PM T [facility] [employer] NAME POC GRETA MAGDALENO 07/30/2018 9:53 PM [facility] Whole blood specimen (specimen) 07/30/2018 9:25 PM CDT 07/30/2018 9:53 PM CDT Sanjuana Sellers MD POINT OF CARE TESTI LUCIANO Performing Organization Address [facility]/ZIP Co de Phone Number [facility]# [id number] [address] [place] [address] * (ABNORMAL) POC GLUCOSE (07/30/2018 6:51 PM CDT) GLUCOSE POC 130(H) 74 - 99 mg/dL 07/30/2018 7:05 PM CDT [facility] COMMENT, GLU POC Notified RN/MD 07/30/2018 7:05 PM CDT [facility] [employer] DR[employer] NAME POC TRINI CAMARILLO 07/30/2018 7:05 PM CDT [facility] Whole blood specimen (specimen) 07/30/2018 6:51 PM CDT 07/30/2018 7:05 PM CDT Sanjuana Sellers MD POINT OF CARE TESTChris WOLF Performing Organization Address [facility]/ZIP Co de Phone Number [facility] [employer] [facility]# [id number] [address] [place] [address] * PROTIME-INR (07/30/2018 4:15 PM CDT) PROTIME 12.7 12.7 - 15.1 Seconds 07/30/2018 4:49 PM CDT [facility] INR 1.0 0.9 - 1.1 07/30/2018 4:49 PM CDT [facility] Blood Collection / Unknown 07/30/2018 4:15 PM CDT 07/30/2018 4:18 PM CDT Narrative [facility] - 07/30/2018 4:49 PM CDT INR Therapeutic Range: Adult: ?? 2.0 - 3.0 for pulmonary embolism or prophylaxis against venous ?thrombosis or systemic embolization. 2.0 - 3.0 for patients with tissue heart valves. 2.5 - 3.5 for patients with mechanical heart valves or post TX. Pediatric ??(12 years and under): 1.5 - 3.0 Although the target range in children is not well established, ?INR values of 1.5 - 3.0 are recommended for most patients. ?Higher values have been used in children with prosthetic ?cardiac valves and hereditary clotting disorders. (<3 days) therapeutic ranges have not been established. Alize Arteaga MD HEMATOLOGY YONI SERRANO Performing Organization Address [facility]/ZIP Co de Phone Number [facility]# [id number] [address] [place] [address] * (ABNORMAL) POC GLUCOSE (07/30/2018 3:30 PM CDT) [facility] GLUCOSE POC 131(H) 74 - 99 mg/dL 07/30/2018 3:43 PM CDT [facility] [employer] NAME POC SAVANA OGLESBY 07/30/2018 3:43 PM CDT [facility] Whole blood specimen (specimen) 07/30/2018 3:30 PM CDT 07/30/2018 3:43 PM CDT Sanjuana Sellres MD POINT OF CARE TESTI NG Performing Organization Address [facility]/ZIP Co de Phone Number [facility]# [id number] [address] [place] [address] * IR VENOUS ACCESS (07/30/2018 2:48 PM CDT) Anatomical Region Laterality Modality X-Ray Angiograph y 07/30/2018 2:49 PM CDT Addenda Addendum by Kayla Sheffield MD on 08/24/2018 12:02 AM CDT Fluoroscopy Dose 0mGy/0uGym2 Impressions 07/30/2018 2:55 PM CDT IMPRESSION: Successful temporary/nontunneled central venous dialysis/pheresis catheter placement. PLAN: Catheter ready to use. DICTATION LOCATION: Location 1 - [facility] 07/30/2018 2:55 PM CDT PROCEDURE/EXAM(S): ULTRASOUND/FLUOROSCOPY GUIDED NON-TUNNELED VENOUS PHERESIS CATHETER PLACEMENT TIME/DATE: 07/30/2018 2:48 PM. CLINICAL INFORMATION & INDICATION: Female of 42 years age with hypertriglyceridemia requires short-term venous access for pheresis. CONSENT: The indications, procedures, benefits, and risks (including but not limited to infection, bleeding, and vascular damage) were discussed with the patient. Informed consent was obtained for the medical record. PHYSICIANS: Kayla Sheffield MD. ?? SEDATION: None. ?? TECHNIQUE: The patient was identified by standard protocol and a timeout was performed at the beginning of the procedure. Maximum sterile technique was utilized for all aspects of the procedure. The veins were evaluated by ultrasound and image(s) were recorded into the medical record. The subcutaneous tissues were infiltrated with local anesthetic and the right internal jugular vein was accessed with a needle using realtime ultrasound guidance. A guidewire and transitional dilator were passed centrally using fluoroscopic guidance. The intravascular length from the access site to the right atrium was measured. A 20 cm Lares pheresis/dialysis catheter was inserted over the guidewire, and appropriately positioned using fluoroscopic guidance. The catheter was packed with heparin-lock solution after confirming appropriate function. The catheter was secured with suture. At the end of the procedure, a sterile dressing was applied. The patient tolerated the procedure well. MEDICATIONS/DRUGS: None. FLUOROSCOPIC EXPOSURE TIME: Less than 0.1 minutes. ?? ESTIMATED BLOOD LOSS: Minimal. ?? COMPLICATIONS: None. ?? FINDINGS: Ultrasound image(s) show a patent right internal jugular vein. ??The fluoroscopic image(s) show a well positioned catheter with the tip in the right atrium and no radiologically evident device complications. ?? Procedure Note Kayla Sheffield MD - 07/30/2018 PROCEDURE/EXAM(S): ULTRASOUND/FLUOROSCOPY GUIDED NON-TUNNELED VENOUS PHERESIS CATHETER PLACEMENT TIME/DATE: 07/30/2018 2:48 PM. CLINICAL INFORMATION & INDICATION: Female of 42 years age with hypertriglyceridemia requires short-term venous access for pheresis. CONSENT: The indications, procedures, benefits, and risks (including but not limited to infection, bleeding, and vascular damage) were discussed with the patient. Informed consent was obtained for the medical record. PHYSICIANS: Kayla Sheffield MD. SEDATION: None. TECHNIQUE: The patient was identified by standard protocol and a timeout was performed at the beginning of the procedure. Maximum sterile technique was utilized for all aspects of the procedure. The veins were evaluated by ultrasound and image(s) were recorded into the medical record. The subcutaneous tissues were infiltrated with local anesthetic and the right internal jugular vein was accessed with a needle using realtime ultrasound guidance. A guidewire and transitional dilator were passed centrally using fluoroscopic guidance. The intravascular length from the access site to the right atrium was measured. A 20 cm Lares pheresis/dialysis catheter was inserted over the guidewire, and appropriately positioned using fluoroscopic guidance. The catheter was packed with heparin-lock solution after confirming appropriate function. The catheter was secured with suture. At the end of the procedure, a sterile dressing was applied. The patient tolerated the procedure well. MEDICATIONS/DRUGS: None. FLUOROSCOPIC EXPOSURE TIME: Less than 0.1 minutes. ESTIMATED BLOOD LOSS: Minimal. COMPLICATIONS: None. FINDINGS: Ultrasound image(s) show a patent right internal jugular vein. The fluoroscopic image(s) show a well positioned catheter with the tip in the right atrium and no radiologically evident device complications. IMPRESSION: Successful temporary/nontunneled central venous dialysis/pheresis catheter placement. PLAN: Catheter ready to use. DICTATION LOCATION: Location 1 - [facility] Kayla Sheffield MD IR ORDERABLES * (ABNORMAL) POC GLUCOSE (07/30/2018 12:06 PM CDT) GLUCOSE POC 160(H) 74 - 99 mg/dL 07/30/2018 12:24 PM CDT [facility] [employer] DR[employer] NAME POC SHIRA ZAMORA 07/30/2018 12:24 PM CDT [facility] Whole blood specimen (specimen) 07/30/2018 12:06 PM CDT 07/30/2018 12:24 PM CDT Sanjuana Sellers MD POINT OF CARE TESTI NG [facility] KARLEE# [id number] [address] [facility] [place] [place] [address] * (ABNORMAL) COMPREHENSIVE METABOLIC PANEL (07/30/2018 9:22 AM CDT) SODIUM 132(L) 136 - 145 mmol/L 07/30/2018 10:52 AM T [facility] POTASSIUM 4.3 3.5 - 5.0 mmol/L 07/30/2018 10:52 AM [facility] CHLORIDE 97(L) 98 - 107 mmol/L 07/30/2018 10:52 AM [facility] CO2 24 22 - 29 mmol/L 07/30/2018 10:52 AM [facility] CALCIUM 8.3(L) 8.6 - 10.2 mg/dL 07/30/2018 10:52 AM T [facility] BUN 10 6 - 20 mg/dL 07/30/2018 10:52 AM [facility] CREATININE 0.58 0.51 - 0.95 mg/dL 07/30/2018 10:52 AM [facility] GLUCOSE 163(H) 74 - 99 mg/dL 07/30/2018 10:52 AM [facility] TOTAL PROTEIN 6.5(L) 6.7 - 8.6 g/dL 07/30/2018 10:52 AM [facility] ALBUMIN 3.9 3.5 - 5.2 g/dL 07/30/2018 10:52 AM [facility] BILIRUBIN TOTAL 0.2(L) 0.3 - 1.2 mg/dL 07/30/2018 10:52 AM [facility] ALKALINE PHOSPHATASE 60 35 - 104 U/L 07/30/2018 10:52 AM [facility] AST 14 <33 U/L 07/30/2018 10:52 AM T [facility] Comment: Hemolysis present. Result may be falsely elevated. ALT 12 <34 U/L 07/30/2018 10:52 AM T [facility] GFR >60 >=60 mL/min/1.7 3 sq meter 07/30/2018 10:52 AM T [facility] Comment: eGFR [...] GFR, >60 >=60 mL/min/1.7 3 sq meter 07/30/2018 10:52 AM T [facility] ANION GAP 11 8 - 16 mmol/L 07/30/2018 10:52 AM [facility] [employer] [facility] Blood Venipuncture / Unknown 07/30/2018 9:22 AM CDT 07/30/2018 9:50 AM CDT Narrative [facility] - 07/30/2018 10:52 AM CDT Samples containing indocyanine green cause interferences on Total and/or Direct Bilirubin and must not be measured. Sanjuana Sellers MD CHEMISTRY ORDERABLE S [facility] [employer] [facility] [id number] [address] [place] [address] * (ABNORMAL) CBC WITH DIFFERENTIAL (07/30/2018 9:22 AM CDT) WBC 8.6 4.0 - 9.8 K/uL 07/30/2018 10:10 AM T [facility] [employer] [facility] RBC 4.22 3.90 - 4.90 M/uL 07/30/2018 10:10 AM [employer] [facility] HEMOGLOBIN 12.7 11.8 - 14.8 g/dL 07/30/2018 10:10 AM [employer] [facility] HEMATOCRIT 39.1 35.5 - 44.0 % 07/30/2018 10:10 AM [employer] [facility] MCV 92.7 82.0 - 99.0 fL 07/30/2018 10:10 AM [employer] [facility] MCH 30.1 27.2 - 32.6 pg 07/30/2018 10:10 AM [employer] [facility] MCHC 32.5 31.5 - 35.5 g/dL 07/30/2018 10:10 AM [employer] [facility] RDW 14.2 11.5 - 14.5 % 07/30/2018 10:10 AM [employer] [facility] RDW-STDEV 47.7 37.1 - 48.7 fL 07/30/2018 10:10 AM [employer] [facility] PLATELETS 208 140 - 350 K/uL 07/30/2018 10:10 AM [employer] [facility] MPV 9.5 9.3 - 12.4 fL 07/30/2018 10:10 AM [employer] [facility] NEUTROPHILS 57 % 07/30/2018 10:10 AM [employer] [facility] LYMPHOCYTES 35 % 07/30/2018 10:10 AM [employer] [facility] MONOCYTES 6 % 07/30/2018 10:10 AM [employer] [facility] - . [facility] EOSINOPHILS 1 % 07/30/2018 10:10 AM [employer] [facility] - . [facility] BASOPHILS 1 % 07/30/2018 10:10 AM [employer] [facility] - . [facility] IMMATURE GRANULOCYTES 1 % 07/30/2018 10:10 AM [employer] [facility] Comment:IG (Immature Granulo cyte) count includes Metamyelocytes, Myelocytes, and Promyelocytes NEUTROPHIL ABSOLUTE 4.90 1.90 - 7.00 K/uL 07/30/2018 10:10 AM [employer] [facility] LYMPHOCYTE ABSOLUTE 2.99 0.70 - 4.50 K/uL 07/30/2018 10:10 AM CDT [facility] MONOCYTE ABSOLUTE 0.54 0.10 - 1.30 K/uL 07/30/2018 10:10 AM CDT [facility] EOSINOPHIL ABSOLUTE 0.07 0.00 - 0.70 K/uL 07/30/2018 10:10 AM CDT [facility] BASOPHILS ABSOLUTE 0.04 0.00 - 0.20 K/uL 07/30/2018 10:10 AM CDT [facility] . [facility] IMMATURE GRANULOCYTES ABSOLUTE 0.05(H) 0.00 - 0.03 K/uL 07/30/2018 10:10 AM CDT [facility] Blood Venipuncture / Unknown 07/30/2018 9:22 AM CDT 07/30/2018 9:50 AM CDT Sanjuana Sellers MD HEMATOLOGY ORDERABL ES [facility]# [id number] [address] [place] [address] * CTA CHEST + ABD/PEL W CONTRAST (07/30/2018 12:49 AM CDT) Anatomical Region Laterality Modality Chest, Abdomen, Pelvis Computed Tomography 07/30/2018 12:5 0 AM CDT Impressions 07/30/2018 1:01 AM CDT IMPRESSION: 1. No evidence of acute pulmonary embolism or aortic pathology. 2. Bilateral dependent atelectatic changes. CT ABDOMEN AND PELVIS: The liver, spleen, pancreas and adrenal glands are unremarkable. The gallbladder and biliary tree are normal. There is slight prominence of the renal collecting systems which remain stable. This may represent the presence of extrarenal pelves. No renal perfusion defect is appreciated. The urinary bladder is normal. There is no evidence of bowel obstruction, free intraperitoneal air or ascites. A right adnexal cyst measures 2.5 x 2.0 cm with a density value of 3HU on image 138 of series 10. The left ovary is normal. No free pelvic fluid or adenopathy is seen. Osseous structures are intact IMPRESSION: 1. Right adnexal cyst measuring 2.5 cm, likely physiologic. 2. No evidence of peripancreatic inflammation. The examination was performed with the adjustment of mA according to the patient size and/or the use of Iterative 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 DICTATION LOCATION: Location [address] [place] [address] 07/30/2018 1:[address] ANGIO CHEST WITH AND WITHOUT IV CONTRAST WITH CORONAL CT RECONSTRUCTIONS CT ABDOMEN AND PELVIS WITH CONTRAST DATE: ??07/30/2018 12:49 AM HISTORY: Chest pain and left upper quadrant pain. History of pancreatitis. Back and shoulder pain. COMPARISON: ??04/10/2018 TECHNIQUE: ??Multidetector helical scanning of the thorax was performed with 1.25 mm axial reconstructions. Pre- and postcontrast scanning is performed to optimize bolus timing. Maximum intensity pixel (MIP) reformats were done through the pulmonary arteries in the coronal and sagittal planes. CONTRAST: IOPAMIDOL 61 % INTRAVENOUS SOLUTION ??Given:120 mL FINDINGS: ?? CTA CHEST: ??No discrete pulmonary artery filling defects identified to suggest the presence of acute pulmonary embolism. There is no evidence of aortic dissection or aneurysm. Heart and great vessels are normal. No mediastinal mass or adenopathy is seen. Dependent atelectatic changes are present bilaterally which are most notable in the lower lobes but also involve the upper lobes. No pneumothorax or pleural effusion is present. The bony chest wall is intact. Procedure Note Malcom Kan MD - 07/30/2018 CT ANGIO CHEST WITH AND WITHOUT IV CONTRAST WITH CORONAL CT RECONSTRUCTIONS CT ABDOMEN AND PELVIS WITH CONTRAST DATE: 07/30/2018 12:49 AM HISTORY: Chest pain and left upper quadrant pain. History of pancreatitis. Back and shoulder pain. COMPARISON: 04/10/2018 TECHNIQUE: Multidetector helical scanning of the thorax was performed with 1.25 mm axial reconstructions. Pre- and postcontrast scanning is performed to optimize bolus timing. Maximum intensity pixel (MIP) reformats were done through the pulmonary arteries in the coronal and sagittal planes. CONTRAST: IOPAMIDOL 61 % INTRAVENOUS SOLUTION Given:120 mL FINDINGS: CTA CHEST: No discrete pulmonary artery filling defects identified to suggest the presence of acute pulmonary embolism. There is no evidence of aortic dissection or aneurysm. Heart and great vessels are normal. No mediastinal mass or adenopathy is seen. Dependent atelectatic changes are present bilaterally which are most notable in the lower lobes but also involve the upper lobes. No pneumothorax or pleural effusion is present. The bony chest wall is intact. IMPRESSION: 1. No evidence of acute pulmonary embolism or aortic pathology. 2. Bilateral dependent atelectatic changes. CT ABDOMEN AND PELVIS: The liver, spleen, pancreas and adrenal glands are unremarkable. The gallbladder and biliary tree are normal. There is slight prominence of the renal collecting systems which remain stable. This may represent the presence of extrarenal pelves. No renal perfusion defect is appreciated. The urinary bladder is normal. There is no evidence of bowel obstruction, free intraperitoneal air or ascites. A right adnexal cyst measures 2.5 x 2.0 cm with a density value of 3HU on image 138 of series 10. The left ovary is normal. No free pelvic fluid or adenopathy is seen. Osseous structures are intact IMPRESSION: 1. Right adnexal cyst measuring 2.5 cm, likely physiologic. 2. No evidence of peripancreatic inflammation. The examination was performed with the adjustment of mA according to the patient size and/or the use of Iterative 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 DICTATION LOCATION: Location 1 - [facility] Jam Martinez MD CT ORDERABLES * HCG QUALITATIVE, URINE (07/29/2018 11:04 PM CDT) HCG QUAL URINE Negative Negative 07/29/2018 11:53 PM CDT [facility] COLOR UA Yellow Pale to Dark Yellow 07/29/2018 11:53 PM CDT [facility] CLARITY UA Clear Clear 07/29/2018 11:53 PM CDT [facility] Urine URINE SPECIMEN OBTAINED BY CLEAN CATCH PROCEDURE / Unknown Collection / Unknown 07/29/2018 11:04 PM CDT 07/29/2018 11:27 PM CDT Jam Martinez MD URINE ORDERABLES [facility]# [id number] [address] [place] [address] * (ABNORMAL) URINALYSIS WITH REFLEX MICROSCOPIC (07/29/2018 11:04 PM CDT) COLOR UA Yellow Pale to Dark Yellow 07/29/2018 11:45 PM CDT [facility] CLARITY UA Clear Clear 07/29/2018 11:45 PM CDT [facility] . [facility] SPECIFIC GRAVITY UA 1.020 1.003 - 1.035 07/29/2018 11:45 PM CDT [facility] . [facility] PH UA 6.0 5.0 - 8.0 07/29/2018 11:45 PM CDT [facility] . [facility] LEUKOCYTE ESTERASE UA Negative Negative 07/29/2018 11:45 PM CDT [facility] . [facility] NITRITE UA Negative Negative 07/29/2018 11:45 PM CDT [facility] . [facility] PROTEIN UA Negative Negative 07/29/2018 11:45 PM CDT [facility] . [facility] GLUCOSE UA Negative Negative 07/29/2018 11:45 PM CDT [facility] . [facility] KETONES UA Trace(A) Negative 07/29/2018 11:45 PM CDT [facility] . [facility] UROBILINOGEN UA Normal <2.0 mg/dL 9 11:45 PM CDT [facility] . [facility] BILIRUBIN UA Negative Negative 07/29/2018 11:45 PM CDT [facility] . [facility] BLOOD UA Negative Negative 07/29/2018 11:45 PM CDT [facility] - . [facility] Urine URINE SPECIMEN OBTAINED BY CLEAN CATCH PROCEDURE / Unknown Collection / Unknown 07/29/2018 11:04 PM CDT 07/29/2018 11:27 PM CDT Jam Martinez MD URINE ORDERABLES [facility] - [facility] CLIA# [id number] [address] [facility] [place] [address] * (ABNORMAL) LIPID PANEL (07/29/2018 10:56 PM CDT) CHOLESTEROL 458(H) <200 mg/dL 07/30/2018 12:53 AM T [facility] TRIGLYCERIDE 2,792(H) <150 mg/dL 07/30/2018 12:53 AM T [facility] HDL 40 - 59 mg/dL 07/30/2018 12:53 AM T [facility] Comment: Measured HDL is not accurate when the Triglyceride value exceeds 1200. LDL CALCULATED <100 mg/dL 07/30/2018 12:53 AM T [facility] Comment:Calculated LDL is no t accurate when the Triglyceride value exceeds 400. NON-HDL CHOLESTEROL <130 mg/dL 07/30/2018 12:53 AM [facility] Comment:Non HDL Cholesterol cannot be calculated when the HDL value is suppressed. Blood Venipuncture / Unknown 07/29/2018 10:56 PM CDT 07/29/2018 11:00 PM CDT Narrative [facility] - 07/30/2018 12:53 AM CDT TOTAL CHOLESTEROL ??mg/dL ??Desirable <200 [...] Guidelines Reference Ranges for Lipid Panels (NCEP/AMA) Jam Martinez MD CHEMISTRY ORDERABLES [facility]# [id number] [address] [place] [address] * (ABNORMAL) POC GLUCOSE (07/29/2018 10:56 PM CDT) [facility] GLUCOSE POC 171(H) 74 - 99 mg/dL 07/29/2018 11:09 PM CDT [facility] [employer] TRUCK DRIVER NAME POC AYLA GILMORE 07/29/2018 11:09 PM CDT [facility] Whole blood specimen (specimen) 07/29/2018 10:56 PM CDT 07/29/2018 11:09 PM CDT Interface Provider Poct POINT OF CARE TE STING Performing Organization Address [facility]/ZIP Co de Phone Number [facility] CLIA# [id number] [address] [place] [address] * LIPASE (07/29/2018 10:56 PM CDT) [facility] LIPASE 38 13 - 60 U/L 07/29/2018 11:26 PM CDT [facility] [employer] [facility] Blood Venipuncture / Unknown 07/29/2018 10:56 PM CDT 07/29/2018 11:00 PM CDT Jam Martinez MD CHEMISTRY ORDERABLES Performing Organization Address City/[facility]/ZIP Co de Phone Number [facility] [employer] [id number] [address] [place] [address] * (ABNORMAL) COMPREHENSIVE METABOLIC PANEL (07/29/2018 10:56 PM CDT) [facility] SODIUM 127(L) 136 - 145 mmol/L 07/30/2018 12:06 AM T [facility] POTASSIUM 4.4 3.5 - 5.0 mmol/L 07/30/2018 12:06 AM T [employer] [facility]AT[facility] Comment: Slightly hemolyzed. Result may be falsely elevated. CHLORIDE 93(L) 98 - 107 mmol/L 07/30/2018 12:06 AM T [employer] [facility]ORAT[facility] CO2 20(L) 22 - 29 mmol/L 07/30/2018 12:06 AM T [employer] [facility] - [facility] CALCIUM 9.1 8.6 - 10.2 mg/dL 07/30/2018 12:06 AM [facility] [employer] [facility] - . [place] BUN 12 6 - 20 mg/dL 07/30/2018 12:06 AM [facility] [employer] [facility] - . [facility] CREATININE 0.46(L) 0.51 - 0.95 mg/dL 07/30/2018 12:06 AM [facility] [employer] [facility] - . [facility] GLUCOSE 175(H) 74 - 99 mg/dL 07/30/2018 12:06 AM [facility] [employer] [facility] - . [facility] TOTAL PROTEIN 7.4 6.7 - 8.6 g/dL 07/30/2018 12:06 AM [facility] [employer] [facility] - . [place] ALBUMIN 4.3 3.5 - 5.2 g/dL 07/30/2018 12:06 AM [facility] - . [facility] BILIRUBIN TOTAL <0.2(L) 0.3 - 1.2 mg/dL 07/30/2018 12:06 AM [facility] [employer] [facility] ALKALINE PHOSPHATASE 76 35 - 104 U/L 07/30/2018 12:06 AM [facility] [employer] [facility] AST 17 <33 U/L 07/30/2018 12:06 AM [facility] Comment: Hemolysis present. Result may be falsely elevated. ALT 14 <34 U/L 07/30/2018 12:06 AM [facility] [employer] [facility] Comment: Hemolysis present. Result may be falsely elevated. GFR >60 >=60 mL/min/1.7 3 sq meter 07/30/2018 12:06 AM [facility] [employer] [facility] Comment: eGFR has not been validated for [...] GFR, >60 >=60 mL/min/1.7 3 sq meter 07/30/2018 12:06 AM [facility] SERVICES [facility] ANION GAP 14 8 - 16 mmol/L 07/30/2018 12:06 AM [facility] Blood Venipuncture / Unknown 07/29/2018 10:56 PM CDT 07/29/2018 11:00 PM CDT [facility]ATORY SERVICES [facility] - 07/30/2018 12:06 AM CDT Samples containing indocyanine green cause interferences on Total and/or Direct Bilirubin and must not be measured. Jam Martinez MD CHEMISTRY ORDERABLES [facility]# [id number] [address] [place] [address] * (ABNORMAL) CBC WITH DIFFERENTIAL (07/29/2018 10:56 PM CDT) WBC 12.1(H) 4.0 - 9.8 K/uL 07/29/2018 11:06 PM [facility] RBC 4.57 3.90 - 4.90 M/uL 07/29/2018 11:06 PM [facility] HEMOGLOBIN 14.3 11.8 - 14.8 g/dL 07/29/2018 11:06 PM [facility] HEMATOCRIT 40.6 35.5 - 44.0 % 07/29/2018 11:06 PM [facility] SERVICES [facility] MCV 88.8 82.0 - 99.0 fL 07/29/2018 11:06 PM [facility] - [facility] MCH 31.3 27.2 - 32.6 pg 07/29/2018 11:06 PM [facility] SERVICES [facility] MCHC 35.2 31.5 - 35.5 g/dL 07/29/2018 11:06 PM [facility] SERVICES [facility] RDW 13.7 11.5 - 14.5 % 07/29/2018 11:06 PM [facility] - [facility] RDW-STDEV 44.7 37.1 - 48.7 fL 07/29/2018 11:06 PM CDT [employer] [facility]AT[facility] - . [facility] PLATELETS 287 140 - 350 K/uL 07/29/2018 11:06 PM CDT [employer] MPV 9.4 9.3 - 12.4 fL 07/29/2018 11:06 PM CDT [employer] NEUTROPHILS 63 % 07/29/2018 11:06 PM CDT [employer] LYMPHOCYTES 30 % 07/29/2018 11:06 PM CDT [facility] MONOCYTES 6 % 07/29/2018 11:06 PM CDT [employer] EOSINOPHILS 1 % 07/29/2018 11:06 PM CDT [employer] BASOPHILS 0 % 07/29/2018 11:06 PM CDT [facility] - . [place] IMMATURE GRANULOCYTES 0 % 07/29/2018 11:06 PM CDT [employer] [facility] - . [place] NEUTROPHIL ABSOLUTE 7.66(H) 1.90 - 7.00 K/uL 07/29/2018 11:06 PM CDT [employer] [facility] - . [facility] LYMPHOCYTE ABSOLUTE 3.59 0.70 - 4.50 K/uL 07/29/2018 11:06 PM CDT [employer] MONOCYTE ABSOLUTE 0.72 0.10 - 1.30 K/uL 07/29/2018 11:06 PM CDT [facility] EOSINOPHIL ABSOLUTE 0.07 0.00 - 0.70 K/uL 07/29/2018 11:06 PM CDT [employer] BASOPHILS ABSOLUTE 0.04 0.00 - 0.20 K/uL 07/29/2018 11:06 PM CDT [employer] - . [facility] IMMATURE GRANULOCYTES ABSOLUTE 0.05(H) 0.00 - 0.03 K/uL 07/29/2018 11:06 PM CDT [employer] [facility] - . [facility] Blood Venipuncture / Unknown 07/29/2018 10:56 PM CDT 07/29/2018 11:00 PM CDT Jam Martinez MD HEMATOLOGY ORDERABLE S [facility]# [id number] [address] [place] [address] documented in this encounter Visit Diagnoses Diagnosis 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 syndrome Hyperchylomicronemia Hypertriglyceridemia Pure hyperglyceridemia Left upper quadrant pain Abdominal pain, left upper quadrant Hyponatremia Hyposmolality and/or hyponatremia Hyperglycemia Other abnormal glucose History of pancreatitis Personal history of other diseases of digestive system Type 2 diabetes mellitus without complication, with long-term current use of insulin Mixed hyperlipidemia Hypothyroidism Unspecified hypothyroidism Hypertriglyceridemia Pure hyperglyceridemia GERD (gastroesophageal reflux disease) Esophageal reflux Tobacco use Tobacco use disorder PCOS (polycystic ovarian syndrome) Polycystic ovaries Metabolic syndrome Dysmetabolic Syndrome X History of plasmapheresis History of pancreatitis Personal history of other diseases of digestive system documented in this encounter Administered Medications Inactive Administered Medications - up to 3 most recent administrations Medication Order MAR Action Action Date Dose Rate Site acetaminophen (TYLENOL) tablet 650 mg 650 mg, Oral, EVERY 6 HOURS PRN, Starting on Sat07/30/18 at 0904, Until Sat08/03/18 at 1614, Other (See Comment), See admin instructions, Routine Given 08/01/2018 8:06 PM CDT 650 mg Given 08/01/2018 4:02 AM CDT 650 mg Given 07/31/2018 1:03 PM CDT 650 mg [id number] (AMELIA 12 60-12-38 per capsule 2 Capsule 2 Capsule, Oral, FOUR TIMES DAILY WITH MEALS AND AT BEDTIME, First dose on Sat07/30/18 at 1200, Until Discontinued, Routine Given 08/02/2018 8:12 PM CDT 2 Capsules Given 08/02/2018 6:11 PM CDT 2 Capsules Given 08/02/2018 12:09 PM CDT 2 Capsules atorvastatin (LIPITOR) tablet 40 mg 40 mg, Oral, DAILY AT BEDTIME, First dose on Sat07/30/18 at 2100, Until Discontinued, Routine Given 08/02/2018 8:12 PM CDT 40 mg Given 08/01/2018 9:55 PM CDT 40 mg Given 07/31/2018 8:09 PM CDT 40 mg calcium GLUCONATE 2,000 mg in sodium chloride 0.9% 120 mL IVPB 2,000 mg, IV, INTRA-PROCEDURE ONCE, 1 dose, Starting on Sat07/30/18 at 1600, Until Sat07/30/18 at 1724, Routine New Bag 07/30/2018 4:28 PM CDT 2,000 mg 144 mL/hr calcium GLUCONATE 2,000 mg in sodium chloride 0.9% 120 mL IVPB 2,000 mg, IV, INTRA-PROCEDURE ONCE, 1 dose, Starting on Sat07/31/18 at 1300, Until Sat08/03/18 at 1614, Routine citalopram (CeleXA) tablet 40 mg 40 mg, Oral, DAILY AT BEDTIME, First dose on Sat07/30/18 at 2200, Until Discontinued, Routine Given 08/02/2018 8:12 PM CDT 40 mg Given 08/01/2018 9:11 PM CDT 40 mg Given 07/31/2018 8:09 PM CDT 40 mg dextrose 5% - sodium chloride 0.9% infusion IV, at 75 mL/hr, CONTINUOUS, Starting on Sat07/31/18 at 1630, Until 08/02/18 at 0849, Routine New Bag 08/01/2018 6:34 AM CDT 75 mL/hr Rate Verify 07/31/2018 7:02 PM CDT 75 mL/hr Restarted 07/31/2018 5:01 PM CDT 75 mL/hr dicyclomine (BENTYL) capsule 10 mg 10 mg, Oral, FOUR TIMES DAILY WITH MEALS AND AT BEDTIME, First dose on Sat07/30/18 at 1200, Until Discontinued, Routine Given 08/03/2018 10:19 AM CDT 10 mg Given 08/02/2018 8:12 PM CDT 10 mg Given 08/02/2018 6:11 PM CDT 10 mg diphenhydrAMINE (BENADRYL) tablet 25 mg 25 mg, Oral, EVERY 6 HOURS PRN, Starting on Sat07/30/18 at 1151, Until Sat08/03/18 at 1614, Itching, Routine Given 08/03/2018 10:21 AM CDT 25 mg Given 08/02/2018 8:16 PM CDT 25 mg Given 08/02/2018 10:49 AM CDT 25 mg enoxaparin (LOVENOX) injection 40 mg 40 mg, subCUT, EVERY 24 HOURS, First dose on Sat07/30/18 at 1200, Until Discontinued, Routine, Indication: Prophylaxis of VTE, Dose to be adjusted per facility protocol? Yes Given 08/02/2018 12:09 PM CDT 40 mg Abdomen, Left Lower Quadrant Given 08/01/2018 12:17 PM CDT 40 mg A bdomen, Left Lower Quadrant Given 07/31/2018 12:49 PM CDT 40 mg A bdominal Tissue fenofibrate (LOFIBRA) tablet 160 mg 160 mg, Oral, DAILY, First dose on Sat07/30/18 at 1300, Until Discontinued, Routine Given 08/03/2018 10:19 AM CDT 160 mg Given 08/02/2018 9:07 AM CDT 160 mg Given 08/01/2018 8:39 AM CDT 160 mg Fish Oil-[place]-3 Fatty Acids 360-1,200 mg capsule 1 Capsule 1 Capsule, Oral, TWO TIMES DAILY, First dose on Sat07/30/18 at 1200, Until Discontinued, Routine Given 08/03/2018 10:19 AM CDT 1 Capsule Given 08/02/2018 8:14 PM CDT 1 Capsule Given 08/02/2018 9:08 AM CDT 1 Capsule insulin glargine (LANTUS) injection 10 Units 10 Units (rounded from 9.53 Units = 0.1 Units/kg ? 95.3 kg), subCUT, TWO TIMES DAILY, First dose on Sat08/02/18 at 1115, Until Discontinued, Routine Given 08/03/2018 10:23 AM CDT 10 Units Arm, Left Upper Given 08/02/2018 8:16 PM CDT 10 Units Ar m, Left Upper Given 08/02/2018 12:09 PM CDT 10 Units A bdomen, Left Lower Quadrant insulin glargine (LANTUS) injection 25 Units 25 Units, subCUT, TWO TIMES DAILY, First dose on Sat07/30/18 at 0915, Until Discontinued, Routine Given 07/31/2018 9:45 AM CDT 25 Units Arm, Left Given 07/30/2018 9:26 PM CDT 25 Units Ar m, Left Upper Given 07/30/2018 12:07 PM CDT 25 Units A rm, Left insulin lispro (HumaLOG) variable dose injection subCUT, THREE TIMES DAILY WITH MEALS, First dose on Sat07/30/18 at 0915, Until Discontinued, Routine Given 07/30/2018 12:16 PM CDT 1 Units Arm, Left insulin lispro (HumaLOG) variable dose injection subCUT, EVERY 4 HOURS, First dose (after last modification) on Katie 07/31/18 at 1615, Until Discontinued, Routine Given 08/02/2018 2:19 AM CDT 1 Units Arm, Right Upper Given 08/01/2018 9:54 PM CDT 1 Units Le ft Arm insulin lispro (HumaLOG) variable dose injection subCUT, FOUR TIMES DAILY WITH MEALS AND AT BEDTIME, First dose (after last modification) on 08/02/18 at 1200, Until Discontinued, Routine Given 08/03/2018 10:22 AM CDT 1 Units Arm, Left Upper Given 08/02/2018 8:16 PM CDT 1 Units Ar m, Right Upper Given 08/02/2018 6:12 PM CDT 2 Units Ab domen, Left Lower Quadrant iopamidol (ISOVUE-300) 61 % injection 120 mL 120 mL, IV, INTRA-PROCEDURE ONCE, 1 dose, Starting on Sat07/30/18 at 0040, Until Sat07/30/18 at 0049, Routine Contrast Given 07/30/2018 12:49 AM CDT 120 mL ketamine (KETALAR) 10 mg/mL injection 15 mg 15 mg, IV, ONE TIME ONLY, 1 dose, On Sat07/30/18 at 0015, Routine Given 07/30/2018 12:19 AM CDT 15 mg levothyroxine (SYNTHROID) tablet 200 mcg 200 mcg, Oral, DAILY, First dose on Sat07/30/18 at 1300, Until Discontinued, Routine Given 08/03/2018 10:19 AM CDT 200 mcg Given 08/02/2018 9:07 AM CDT 200 mcg Given 08/01/2018 8:39 AM CDT 200 mcg LORazepam (ATIVAN) tablet 1 mg 1 mg, Oral, TWO TIMES DAILY PRN, Starting on Sat07/30/18 at 0902, Until Sat08/03/18 at 1614, Anxiety, Routine Given 07/30/2018 9:35 PM CDT 1 mg Given 07/30/2018 3:19 PM CDT 1 mg midazolam (PF) (VERSED) injection 1 mg 1 mg, IV, ONE TIME ONLY, 1 dose, On Sat07/30/18 at 0015, Routine Given 07/30/2018 12:19 AM CDT 1 mg morphine 4 mg/mL injection 3 mg 3 mg, IV, EVERY 3 HOURS PRN, Starting on Sat07/31/18 at 0247, Until Sat07/31/18 at 1013, Pain, Routine Given 07/31/2018 9:46 AM CDT 3 mg morphine 4 mg/mL injection 3 mg 3 mg, IV, EVERY 4 HOURS PRN, Starting on Sat07/31/18 at 1015, Until Sat08/01/18 at 1127, Pain, Routine Given 08/01/2018 8:42 AM CDT 3 mg Given 08/01/2018 12:25 AM CDT 3 mg Given 07/31/2018 6:54 PM CDT 3 mg morphine 4 mg/mL injection 6 mg 6 mg, IV, EVERY 3 HOURS PRN, Starting on Sat07/30/18 at 1858, Until Sat07/31/18 at 0248, Pain, Routine Given 07/30/2018 7:56 PM CDT 6 mg morphine injection 6 mg 6 mg, IV, EVERY 3 HOURS PRN, Starting on Sat07/30/18 at 0154, Until Sat07/30/18 at 1859, Pain, Routine Given 07/30/2018 2:02 PM CDT 6 mg Given 07/30/2018 9:23 AM CDT 6 mg Given 07/30/2018 5:03 AM CDT 6 mg niacin (NIACOR) tablet 500 mg 500 mg, Oral, TWO TIMES DAILY, First dose on Sat07/30/18 at 2100, Until Discontinued, Routine Given 08/03/2018 10:19 AM CDT 500 mg Given 08/02/2018 8:12 PM CDT 500 mg Given 08/02/2018 9:08 AM CDT 500 mg nicotine (NICODERM CQ) 21 mg/24 hr transdermal patch 1 Patch 1 Patch, Transdermal, DAILY, First dose on Sat08/01/18 at 0200, Until Discontinued, Routine Applied 08/03/2018 4:03 AM CDT 1 Patch Arm, Right Upper Applied 08/02/2018 1:01 AM CDT 1 Patch Ar m, Left Upper Applied 08/01/2018 3:54 AM CDT 1 Patch Ar m, Right Upper ondansetron (ZOFRAN ODT) tablet 4 mg 4 mg, Oral, EVERY 6 HOURS PRN, Starting on Sat07/30/18 at 0534, Until Sat08/03/18 at 1614, Nausea/Emesis, Routine Given 08/01/2018 12:21 PM CDT 4 mg Given 07/31/2018 9:44 AM CDT 4 mg Given 07/30/2018 7:54 PM CDT 4 mg ondansetron (ZOFRAN) 4 mg/2 mL injection 4 mg 4 mg, IV, ONE TIME ONLY, 1 dose, On Sat07/29/18 at 2300, Routine Given 07/29/2018 10:59 PM CDT 4 mg ondansetron (ZOFRAN) 4 mg/2 mL injection 4 mg 4 mg, IV, ONE TIME ONLY, 1 dose, On Sat07/30/18 at 0215, Stat Given 07/30/2018 2:04 AM CDT 4 mg ondansetron (ZOFRAN) 4 mg/2 mL injection 4 mg 4 mg, IV, ONE TIME ONLY, 1 dose, On Sat07/31/18 at 1000, Routine Given 07/31/2018 11:28 AM CDT 4 mg ONDANSETRON HCL (PF) 4 MG/2 ML INJECTION SOLUTION (CABINET OVERRIDE) 1 dose, Starting on Sat07/29/18 at 2258, Until Sat07/29/18 at 2259, Km IRIZARRY: cabinet override ONDANSETRON HCL (PF) 4 MG/2 ML INJECTION SOLUTION (CABINET OVERRIDE) 1 dose, Starting on Sat07/30/18 at 0204, Until Sat07/30/18 at 0215, Laurent IRIZARRY: cabinet override Admin by Another Clinician (Comment) 07/30/2018 2:15 AM CDT 4 mg oxyCODONE (ROXICODONE) tablet 5 mg 5 mg, Oral, EVERY 6 HOURS PRN, Starting on Sat08/01/18 at 1127, Until Sat08/03/18 at 1614, Pain (See admin instructions), Routine Given 08/02/2018 8:13 PM CDT 5 mg Given 08/02/2018 9:06 AM CDT 5 mg Given 08/02/2018 1:01 AM CDT 5 mg oxyCODONE-acetaminophen (PERCOCET) 10-325 mg per tablet 1 Tablet 1 Tablet, Oral, EVERY 4 HOURS PRN, Starting on Sat07/30/18 at 0808, Until Sat08/03/18 at 1614, Pain (See admin instructions), Routine Given 08/03/2018 4:03 AM CDT 1 Tablet Given 08/02/2018 4:56 PM CDT 1 Tablet Given 08/02/2018 12:13 PM CDT 1 Tablet pantoprazole (PROTONIX) tablet 40 mg 40 mg, Oral, TWO TIMES DAILY, First dose on Sat07/30/18 at 2100, Until Discontinued, Routine Given 08/03/2018 10:19 AM CDT 40 mg Given 08/02/2018 8:13 PM CDT 40 mg Given 08/02/2018 9:07 AM CDT 40 mg polyethylene glycol (MIRALAX) packet 17 Gram 17 Gram, Oral, DAILY PRN, Starting on Sat07/31/18 at 1332, Until Sat08/03/18 at 1614, Constipation, Routine prochlorperazine (COMPAZINE) injection 5 mg 5 mg, IV, EVERY 4 HOURS PRN, Starting on Sat07/31/18 at 0959, Until Sat08/03/18 at 1614, Nausea/Emesis, Routine Given 08/03/2018 4:02 AM CDT 5 mg Given 08/02/2018 8:13 PM CDT 5 mg Given 08/02/2018 4:56 PM CDT 5 mg sennosides-docusate sodium (SENNA-S) 8.6-50 mg per tablet 2 Tablet 2 Tablet, Oral, TWO TIMES DAILY, First dose on Sat07/31/18 at 1345, Until Discontinued, Routine Given 08/03/2018 10:19 AM CDT 2 Tablets Given 08/02/2018 8:13 PM CDT 2 Tablets Given 08/02/2018 9:08 AM CDT 2 Tablets sodium chloride 0.9% bolus solution 1,000 mL 1,000 mL, IV, ONE TIME ONLY, 1 dose, On Sat07/30/18 at 0015, at 2,000 mL/hr, Administer over 30 Minutes, Routine New Bag 07/30/2018 12:18 AM CDT 1,000 mL 2000 mL/hr sodium chloride 0.9% bolus solution 1,000 mL 1,000 mL, IV, ONE TIME ONLY, 1 dose, On Sat07/31/18 at 0300, at 6,000 mL/hr, Administer over 10 Minutes, Routine New Bag 07/31/2018 2:54 AM CDT 1,000 mL 6000 m L/hr sodium chloride 0.9% bolus solution 500 mL 500 mL, IV, ONE TIME ONLY, 1 dose, On Sat07/31/18 at 0015, at 3,000 mL/hr, Administer over 10 Minutes, Routine New Bag 07/31/2018 12:21 AM CDT 500 mL 3000 mL/hr sodium chloride 0.9% bolus solution 500 mL 500 mL, IV, ONE TIME ONLY, 1 dose, On Sat07/31/18 at 0215, at 3,000 mL/hr, Administer over 10 Minutes, Routine New Bag 07/31/2018 2:22 AM CDT 500 mL 3000 m L/hr sodium chloride 0.9% infusion IV, at 100 mL/hr, CONTINUOUS, Starting on Sat07/30/18 at 0400, Until Sat07/31/18 at 1616, Routine Restarted 07/31/2018 4:48 PM CDT 100 mL/hr Restarted 07/31/2018 4:22 PM CDT 100 mL/hr Restarted 07/31/2018 1:11 PM CDT 100 mL/hr sodium chloride 0.9% infusion IV, at 75 mL/hr, CONTINUOUS, Starting on Sat08/01/18 at 2015, Until Sat08/03/18 at 1614, Routine Restarted 08/02/2018 12:28 PM CDT 75 mL/ hr New Bag 08/01/2018 8:10 PM CDT 75 mL/hr sodium chloride flush injection 10 mL 10 mL, IV, ONE TIME ONLY, 1 dose, On Sat07/30/18 at 0045, Routine Given 07/30/2018 12:50 AM CDT 10 mL traZODone (DESYREL) tablet 100 mg 100 mg, Oral, DAILY AT BEDTIME, First dose on Sat07/30/18 at 2100, Until Discontinued, Routine Given 08/02/2018 8:13 PM CDT 100 mg Given 08/01/2018 9:13 PM CDT 100 mg Given 07/31/2018 8:09 PM CDT 100 mg documented in this encounter Active and Recently Administered Medications Times are shown in CDT. Scheduled Medication Order 08/01/2018 08/02/2018 08/03/2018 [id number] e (CREON 12) 60-12-38 per capsule 2 Capsule 2 Capsule, Oral, FOUR TIMES DAILY WITH MEALS AND AT BEDTIME, First dose on Sat07/30/18 at 1200, Until Discontinued, Routine 0839 (Refused - Provider: BLAISE Navarro)1217 (Refused - Provider: BLAISE Navarro)1700 (Refused - Provider: BLAISE Navarro)2100 (Refused - Provider: Zainab Hart RN) 0907 (Given - Provider: BLAISE Arevalo)1209 (Given - Provider: BLAISE Arevalo)1811 (Given - Provider: BLAISE Arevalo)2011 (Given - Provider: BLAISE Sullivan) 1019 (Not Given - Provider: Nathalie Walton RN - Reason: Patient condition - Comment: refused breakfast)1200 (Due) atorvastatin (LIPITOR) tablet 40 mg 40 mg, Oral, DAILY AT BEDTIME, First dose on Sat07/30/18 at 2100, Until Discontinued, Routine 2154 (Given - Provider: Zainab Hart RN) 2011 (Given - Provider: BLAISE Sullivan) calcium GLUCONATE 2,000 mg in sodium chloride 0.9% 120 mL IVPB 2,000 mg, IV, INTRA-PROCEDURE ONCE, 1 dose, Starting on Sat07/31/18 at 1300, Until Sat08/03/18 at 1614, Routine citalopram (CeleXA) tablet 40 mg 40 mg, Oral, DAILY AT BEDTIME, First dose on Sat07/30/18 at 2200, Until Discontinued, Routine 2110 (Given - Provider: Zainab Hart RN) 2011 (Given - Provider: BLAISE Sullivan) dextrose 5% - sodium chloride 0.9% infusion IV, at 40 mL/hr, SEE ADMIN INSTRUCTIONS, Starting on Sat07/30/18 at 0903, Until Sat08/03/18 at 1614, Routine dextrose 50% (D50) syringe 12.5 Gram 12.5 Gram, IV, SEE ADMIN INSTRUCTIONS, Starting on Sat07/30/18 at 0903, Until Sat08/03/18 at 1614, Routine dextrose 50% (D50) syringe 25 Gram 25 Gram, IV, SEE ADMIN INSTRUCTIONS, Starting on Sat07/30/18 at 0903, Until 08/03/18 at 1614, Routine dicyclomine (BENTYL) capsule 10 mg 10 mg, Oral, FOUR TIMES DAILY WITH MEALS AND AT BEDTIME, First dose on Sat07/30/18 at 1200, Until Discontinued, Routine 0030 (Given - Provider: Phyllis Madera RN)0838 (Given - Provider: BLAISE Navarro)1216 (Given - Provider: BLAISE Navarro)1714 (Given - Provider: BLAISE Navarro)211 (Given - Provider: Zainab Hart RN) 09 (Given - Provider: BLAISE Arevalo)120 (Given - Provider: BLAISE Arevalo)181 (Given - Provider: BLAISE Arevalo)2011 (Given - Provider: BLAISE Sullivan) 101 (Given - Provider: Nathalie Walton RN)1200 (Due) enoxaparin (LOVENOX) injection 40 mg 40 mg, subCUT, EVERY 24 HOURS, First dose on Sat07/30/18 at 1200, Until Discontinued, Routine, Indication: Prophylaxis of VTE, Dose to be adjusted per facility protocol? Yes 1217 (Given - Provider: BLAISE Navarro) 1209 (Given - Provider: BLAISE Arevalo) 1200 (Due) fenofibrate (LOFIBRA) tablet 160 mg 160 mg, Oral, DAILY, First dose on Sat07/30/18 at 1300, Until Discontinued, Routine 0839 (Given - Provider: BLAISE Navarro) 09 (Given - Provider: BLAISE Arevalo) 101 (Given - Provider: Nathalie Walton RN) Fish Oil-[place]-3 Fatty Acids 360-1,200 mg capsule 1 Capsule 1 Capsule, Oral, TWO TIMES DAILY, First dose on Sat07/30/18 at 1200, Until Discontinued, Routine 0839 (Given - Provider: BLAISE Navarro)211 (Given - Provider: Zainab Hart RN) 0908 (Given - Provider: BLAISE Arevalo)2013 (Given - Provider: BLAISE Sullivan) 101 (Given - Provider: Nathalie Walton RN) glucagon HCl 1 mg injection 1 mg 1 mg, IM, SEE ADMIN INSTRUCTIONS, Starting on Sat07/30/18 at 0903, Until 08/03/18 at 1614, Routine insulin glargine (LANTUS) injection 10 Units 10 Units (rounded from 9.53 Units = 0.1 Units/kg ? 95.3 kg), subCUT, TWO TIMES DAILY, First dose on 08/02/18 at 1115, Until Discontinued, Routine 1209 (Given - Provider: BLAISE Arevalo)2016 (Given - Provider: BLAISE Sullivan) 1023 (Given - Provider: Nathalie Walton RN) insulin lispro (HumaLOG) variable dose injection (CANCELED) subCUT, EVERY 4 HOURS, First dose (after last modification) on Katie 07/31/18 at 1615, Until Discontinued, Routine 0021 (Not Given - Provider: Phyllis Madera RN - Reason: Lab results - Comment: [phone] (Not Given - Provider: Phyllis Madera RN - Reason: Lab results - Comment: [phone] (Not Given - Provider: BLAISE Navarro - Reason: Lab results - Comment: [phone] (Not Given - Provider: BLAISE Navarro - Reason: Lab results - Comment: [phone] (Not Given - Provider: BLAISE Navarro - Reason: Lab results - Comment: [phone] (Given - Provider: Zainab Hart RN - Comment: [phone]) 0219 (Given - Provider: BLAISE Sullivan)0600 (Not Given - Provider: BLAISE Sullivan - Reason: Lab results) insulin lispro (HumaLOG) variable dose injection subCUT, FOUR TIMES DAILY WITH MEALS AND AT BEDTIME, First dose (after last modification) on 08/02/18 at 1200, Until Discontinued, Routine 1210 (Given - Provider: BLAISE Arevalo - Comment: [phone] (Given - Provider: BLAISE Arevalo)2016 (Given - Provider: BLAISE Sullivan) 1022 (Given - Provider: Nathalie Walton RN)1200 (Due) levothyroxine (SYNTHROID) tablet 200 mcg 200 mcg, Oral, DAILY, First dose on Sat07/30/18 at 1300, Until Discontinued, Routine 0839 (Given - Provider: BLAISE Navarro) 906 (Given - Provider: BLAISE Arevalo) 101 (Given - Provider: Nathalie Walton RN) naloxone (NARCAN) 0.4 mg/mL injection 0.1 mg 0.1 mg, IV, SEE ADMIN INSTRUCTIONS, Starting on Sat07/30/18 at 0903, Until Sat08/03/18 at 1614, Routine niacin (NIACOR) tablet 500 mg 500 mg, Oral, TWO TIMES DAILY, First dose on Sat07/30/18 at 2100, Until Discontinued, Routine 0839 (Given - Provider: BLAISE Navarro)2111 (Given - Provider: Zainab Hart RN) 907 (Given - Provider: BLAISE Arevalo)2011 (Given - Provider: BLAISE Sullivan) 101 (Given - Provider: Nathalie Walton RN) nicotine (NICODERM CQ) 21 mg/24 hr transdermal patch 1 Patch 1 Patch, Transdermal, DAILY, First dose on Sat08/01/18 at 0200, Until Discontinued, Routine 0354 (Applied - Provider: Phyllis Madera RN) 0100 (Removed - Provider: BLAISE Sullivan)010 (Applied - Provider: BLAISE Sullivan) 0101 (Removed - Provider: BLAISE Sullivan)0403 (Applied - Provider: BLAISE Sullivan)1414 (Due: Removed - Provider: PROVIDER, DISCHARGE PATIENT - Comment: Time automatically adjusted from order being discontinued) pantoprazole (PROTONIX) tablet 40 mg 40 mg, Oral, TWO TIMES DAILY, First dose on Sat07/30/18 at 2100, Until Discontinued, Routine 0838 (Given - Provider: BLAISE Navarro)2112 (Given - Provider: Zainab Hart RN) 906 (Given - Provider: BLAISE Arevalo)2012 (Given - Provider: BLAISE Sullivan) 101 (Given - Provider: Nathalie Walton RN) sennosides-docusate sodium (SENNA-S) 8.6-50 mg per tablet 2 Tablet 2 Tablet, Oral, TWO TIMES DAILY, First dose on Katie 07/31/18 at 1345, Until Discontinued, Routine 0838 (Given - Provider: BLAISE Navarro)2110 (Given - Provider: Zainab Hart RN) 907 (Given - Provider: BLAISE Arevalo)2012 (Given - Provider: BLAISE Sullivan) 1019 (Given - Provider: Nathalie Walton RN) traZODone (DESYREL) tablet 100 mg 100 mg, Oral, DAILY AT BEDTIME, First dose on Sat07/30/18 at 2100, Until Discontinued, Routine 2112 (Given - Provider: Zainab Hart RN) 2012 (Given - Provider: BLAISE Sullivan) Continuous Medication Order 08/01/2018 08/02/2018 08/03/2018 dextrose 5% - sodium chloride 0.9% infusion (CANCELED) IV, at 75 mL/hr, CONTINUOUS, Starting on Katie 07/31/18 at 1630, Until 08/02/18 at 0849, Routine 0634 (New Bag - Provider: Phyllis Maedra RN)2008 (Stopped - Provider: Zainba Hart RN) sodium chloride 0.9% infusion IV, at 75 mL/hr, CONTINUOUS, Starting on Sat08/01/18 at 2015, Until 08/03/18 at 1614, Routine 2010 (New Bag - Provider: Zainab Hart RN) 1048 (Stopped - Provider: BLAISE Arevalo)1228 (Restarted - Provider: BLAISE Arevalo) PRN Medication Order 08/01/2018 08/02/2018 08/03/2018 acetaminophen (TYLENOL) tablet 650 mg 650 mg, Oral, EVERY 6 HOURS PRN, Starting on Sat07/30/18 at 0904, Until 08/03/18 at 1614, Other (See Comment), See admin instructions, Routine 401 (Given - Provider: Phyllis Madera RN)2005 (Given - Provider: Zainab Hart RN) diphenhydrAMINE (BENADRYL) tablet 25 mg 25 mg, Oral, EVERY 6 HOURS PRN, Starting on Sat07/30/18 at 1151, Until 08/03/18 at 1614, Itching, Routine 1102 (Given - Provider: BLAISE Navarro)2159 (Given - Provider: Zainab Hart RN) 1049 (Given - Provider: BLAISE Arevalo)2015 (Given - Provider: BLAISE Sullivan) 1021 (Given - Provider: Nathalie Walton RN) LORazepam (ATIVAN) tablet 1 mg 1 mg, Oral, TWO TIMES DAILY PRN, Starting on Sat07/30/18 at 0902, Until 08/03/18 at 1614, Anxiety, Routine morphine 4 mg/mL injection 3 mg (CANCELED) 3 mg, IV, EVERY 4 HOURS PRN, Starting on Katie 07/31/18 at 1015, Until Sat08/01/18 at 1127, Pain, Routine 0025 (Given - Provider: hPyllis Madera RN)0842 (Given - Provider: BLAISE Navarro) ondansetron (ZOFRAN ODT) tablet 4 mg 4 mg, Oral, EVERY 6 HOURS PRN, Starting on Sat07/30/18 at 0534, Until 08/03/18 at 1614, Nausea/Emesis, Routine 1221 (Given - Provider: BLAISE Navarro) oxyCODONE (ROXICODONE) tablet 5 mg 5 mg, Oral, EVERY 6 HOURS PRN, Starting on Sat08/01/18 at 1127, Until 08/03/18 at 1614, Pain (See admin instructions), Routine 1221 (Given - Provider: BLAISE Navarro)2005 (Given - Provider: Zainab Hart RN) 0101 (Given - Provider: BLAISE Sullivan)0906 (Given - Provider: BLAISE Arevalo)2012 (Given - Provider: BLAISE Sullivan) oxyCODONE-acetaminophe n (PERCOCET) 10-325 mg per tablet 1 Tablet 1 Tablet, Oral, EVERY 4 HOURS PRN, Starting on Sat07/30/18 at 0808, Until 08/03/18 at 1614, Pain (See admin instructions), Routine 1100 (Given - Provider: BLAISE Navarro)1714 (Given - Provider: BLAISE Navarro)215 (Given - Provider: Zainab Hart RN) 0605 (Given - Provider: BLAISE Sullivan)1213 (Given - Provider: BLAISE Arevalo)1656 (Given - Provider: BLAISE Arevalo) 0403 (Given - Provider: BLAISE Sullivan) polyethylene glycol (MIRALAX) packet 17 Gram 17 Gram, Oral, DAILY PRN, Starting on Katie 07/31/18 at 1332, Until 08/03/18 at 1614, Constipation, Routine prochlorperazine (COMPAZINE) injection 5 mg 5 mg, IV, EVERY 4 HOURS PRN, Starting on Katie 07/31/18 at 0959, Until 08/03/18 at 1614, Nausea/Emesis, Routine 1252 (Given - Provider: BLAISE Navarro)1805 (Given - Provider: BLAISE Navarro)2158 (Given - Provider: Zainab Hart RN) 0605 (Given - Provider: BLAISE Sullivan)165 (Given - Provider: BLAISE Arevalo)2012 (Given - Provider: BLAISE Sullivan) 0402 (Given - Provider: BLAISE Sullivan) documented in this encounter Care Teams Executive Team Leader Relationship Specialty Start Date End Date Guerrero Middleton PA-C PCP - General Physician Clinic Specialist 02/13/18 documented as of this encounter
--- OUTSIDE RECORDS SUMMARY | 2024-05-03 20:45 | XMS_ITS | Encounter Summary ---
Author Organization [facility] Address [address] [place] [address] Care Team Providers Care Instrument Mechanic Weapons System Name Role Phone Guerrero Middleton PA-C Primary Care Provide r Reason for Visit * Reason Comments Abdominal Pain Pt ambulatory to ED with complaint of LUQ abdominal pain, radiating into back, headache, nasuea, general fatigue x 2 days. Pt Hx of Pancreatitis. * Auth/Cert Specialty Diagnoses / Procedures Referred By Tequila t Referred To Contact [facility] [address] [place] [address] Referral ID Status Reason Start Date Expiration Date Visits Re quested Visits Authorized [id number] 1 1 Encounter Details Date Type Department Care Team (Latest Contact Info) Description 06/29/2018 7:39 PM DIRECTOR MARKET RESEARCH - 07/03/2018 2:43 PM DIRECTOR MARKET RESEARCH Hospital Encounter [facility] [address] [place] [address] Eva Duran MD NO ADDRESS ON FILE Pernell Tapia MD [address] [place] [address] Niki Davenport MD [address] [place] [address] Evan Hernandez MD [address] [facility] [address] [place] [address] Chylomicronemia syndrome Discharge Disposition: Home or Self [...] Sign Reading Time Taken Comments Blood Pressure 120/72 07/03/2018 10:55 AM DIRECTOR MARKET RESEARCH Pulse 81 07/03/2018 3:21 AM DIRECTOR MARKET RESEARCH Temperature 36.8 ??C (98.2 ??F) 07/03/2018 10:[address] Respiratory Rate 12 07/03/2018 10:55 AM DIRECTOR MARKET RESEARCH Oxygen Saturation 97% 07/03/2018 10:55 AM DIRECTOR MARKET RESEARCH Inhaled Oxygen Concentration - - Weight 92.5 kg (204 lb) 06/30/2018 12:52 AM DIRECTOR MARKET RESEARCH Height 165.1 cm (5' 5 ) 06/30/2018 12:52 AM DIRECTOR MARKET RESEARCH Body Mass Index 33.95 06/30/2018 12:52 AM DIRECTOR MARKET RESEARCH documented in this encounter Discharge Summaries * Evan Hernandez MD - 07/03/2018 4:31 PM CST [facility] Discharge Summary Patient Name: Casandra Jones / 42 y.o. / female : 1975 PCP: Guerrero Middleton PA-C Date of Admit: 06/29/2018 Date of DC : 07/03/2018 Admitting Dx: Chylomicronemia syndrome Discharge Diagnoses & Hospital Course: 1. Abdominal pain -patient presents with severe difficult to control abdominal pain. ??Consistent with patient's previous history of hypertriglyceridemia and suspected chylomicronemia syndrome. ??Lipase within normal limits and CRP normal as well. ??Possibly precipitated by fatty meals. - Pain control improved. -Triglycerides levels went up to a 900s and now down to 572. Has received plasmapheresis in the past. Consulted her nuclear fuels reclamation engineer Dr. Rudd. Initially started on insulin drip. Endocrinology has stopped insulin drip on 07/02/2018. Discussed with endocrinology 07/03/2018, okay to discharge home. PRN p.o. Percocet for pain. ?? 2. ?Hypertriglyceridemia -has had marked hypertriglyceridemia in the past and has had a plasmapheresis as well. ??Patient reports that she was planning on seeing an nuclear fuels reclamation engineer at [facility] but has not yet done so. - See #01 -Fenofibrate; Lipitor - Fish oil ?? 3. ?Type 2 diabetes mellitus without complication, with long-term current use of insulin -Home on Lantus 28 units in a.m. and 38 units in p.m.; NovoLog 14,16,22. -Endocrinology following. Discussed with endocrinology 07/03/2018, recommend to continue with home insulin regimen. Outpatient follow-up with endocrinology. ?? 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 ?Hypothyroidism 6. ?Metabolic syndrome ? Discharge medications and new prescriptions: Medication List CONTINUE taking these medications citalopram 40 mg tablet Commonly known as: CeleXA Take 40 mg by mouth daily at bedtime. Refills: 0 CREON 60-12-38 capsule Take 2 Capsules by mouth 4 times daily with meals and at bedtime. Refills: 0 Generic drug: eixjqhc-wxpikb-cfaubbce DR dicyclomine 10 mg capsule Commonly known as: BENTYL Take 1 Capsule by mouth 4 times daily. Signed by: Marlys Mayer MD Quantity: 15 Capsule Refills: 0 fenofibrate 160 mg Tablet [...] by mouth 2 times daily. Refills: 0 [id number]-[id number]-E-FA-Fish Oil [phone] cn-uz-ehw-mcg Capsule Take 2 Caplets by mouth 2 times daily. Signed by: Odette Che MD Quantity: 120 Capsule Refills: 3 ondansetron 4 mg Tablet, Rapid Dissolve Commonly [...] Max Daily Amount: 6 Tablets Signed by: Evan Hernandez MD Quantity: 20 Tablet Refills: 0 pantoprazole [...] Your Medications [address] [facility] [address] Hours: Saturday-Saturday: 8 a.m. - 8 p.m., Saturday: 9 a.m. - 5 p.m., Saturday: 10 a.m. - 2 p.m. ?? oxyCODONE-acetaminophen 5-325 mg tablet Consultantants: IP CONSULT TO IV TEAM IP CONSULT TO ENDOCRINOLOGY IP CONSULT TO NUTRITION SERVICES Discharge Lab Data: Lab Results Component Value Date/Time WBC 5.9 07/02/2018 05:16 AM HEMATOCRIT 33.2 (L) 07/02/2018 05:16 AM HEMOGLOBIN 10.8 (L) 07/02/2018 05:16 AM PLATELETS 201 07/02/2018 05:16 AM SODIUM 138 07/03/2018 03:32 AM CHLORIDE 103 07/03/2018 03:32 AM POTASSIUM 4.2 07/03/2018 03:32 AM CO2 25 07/03/2018 03:32 AM BUN 6 07/03/2018 03:32 AM CREATININE 0.58 07/03/2018 03:32 AM GLUCOSE 174 (H) 07/03/2018 03:32 AM INR 0.9 06/29/2018 08:17 PM AST 11 07/03/2018 03:32 AM ALT 9 07/03/2018 03:32 AM CRP 3.0 06/29/2018 08:17 PM Discharge Exam: BP 120/72 (BP Location: Left arm, Patient Position (BP): Supine) Pulse 81 Temp 98.2 ??F (36.8 ??C) (Oral) Resp 12 Ht 5' 5 (1.651 m) Wt 92.5 kg (204 lb) SpO2 97% ? No BMI33.95 kg/m?? GENERAL: Patient in no distress, cooperative, appropriate. HEENT: NCAT,EOMI,MMM, No pallor, No jaundice. NECK: Supple, no JVD LUNGS: Clear to auscultation bilaterally. HEART:S1, S2 present, RRR. ABDOMEN: Soft, NTND, normoactive bowel sounds. EXTREMITIES: No edema, no cyanosis, no clubbing. NEUROLOGIC: A&Ox 4, non focal. Discharge Condition: stable Disposition: home Patient instructions: Activity: as tolerated Diet: DIET FAT CONTROL Diabetic: Diabetic, Follow-up: Guerrero Middleton PA-C in one week. Please check your blood sugars with each meal and at bedtime. If blood sugar less than 80 or more than 200, please notify your nuclear fuels reclamation engineer Dr. Rudd. Endocrinology follow-up with Dr. Rudd in 1-2 weeks. . Please call for an appointment. Code Status At time of Discharge: Full Code More than 35 minutes were spent in this discharge activity. Signed: Evan Hernandez MD 07/03/2018, 4:31 PM CTOR MARKET RESEARCH documented in this encounter Discharge Instructions * Discharge Instructions* Evan Hernandez MD - 07/03/2018 10:02 AM DIRECTOR MARKET RESEARCH FOLLOW-UP Follow up with Guerrero Middleton PA-C in one week. Please check your blood sugars with each meal and at bedtime. If blood sugar less than 80 or more than 200, please notify your nuclear fuels reclamation engineer Dr. Rudd. Endocrinology follow-up with Dr. Rudd in 1-2 weeks. . Please call for an appointment. Prescriptions given: Y SIGNS AND SYMPTOMS TO REPORT Contact your health care provider if you experience any of the following symptoms: chest pain, shortness of breath, dizziness, nausea, vomiting, diarrhea, abdominal pain, fever > 101 or any other concerning symptoms. Smoking Exposure: [facility] encourages all patients to decrease risks associated with smoking and second hand smoke exposure. If you smoke you are advised to quit. Ask your health care provider for advice if you need assistance to stop smoking. Avoid second-hand smoke exposure and do not let people smoke in your home. Please call [phone], our pulmonary rehabilitation department, to learn more about options to reduce your risks. ACTIVITY Your activity level is: as tolerated. DIET Your diet is: Diabetic diet CTOR MARKET RESEARCH documented in this encounter Medications at Time of Discharge Medication Sig Dispensed Refills Start Date End Date traZODone (DESYREL) 100 mg tablet Take 100 mg by mouth daily at bedtime . metFORMIN (GLUCOPHAGE) 500 mg tablet Take 500 mg by mouth 2 times daily. 06/05/2018 09/26/2023 omega-3 fatty acids-fish oil 300-1,000 mg Capsule Take 2 Capsules by mouth 2 times daily. 02/04/2019 oxyCODONE-acetaminop hen (PERCOCET) 5-325 mg tablet Take 1 tablet by mouth every 4 hours as needed for pain. Max Daily Amount: 6 Tablets 20 Tablet 07/03/2018 08/03/2018 dicyclomine (BENTYL) 10 mg capsule Take 1 [...] 30 Tablet 05/21/2018 09/26/2023 levothyroxine 200 mcg tabletIndications:Hy pothyroidism Take 1 [...] by mouth 2 times daily . 09/26/2023 Ygcps4-[id number]-E-F A-Fish Oil [phone] wo-rg-jxo-mcg Capsule Take 2 Caplets by mouth 2 [...] as of this encounter Progress Notes * Lalita Damico MD - 07/02/2018 10:[address] [facility] Called for: Complaints of severe abdominal pain, morphine 4mg is not helping at all. She is also having nausea despite zofran. She believes pain is driving her nausea as well. Last Recorded Vitals: BP 112/70 (BP Location: Left arm, Patient Position (BP): Supine) Pulse 90 Temp 97.8 ??F (36.6 ??C) (Oral) Resp 16 Ht 5' 5 (1.651 m) Wt 92.5 kg (204 lb) SpO2 97% ? No BMI 33.95 kg/m?? Small amount stool (07/01/18 2322) Documentation/Intervention/Outcome: Chart reviewed and discussed with nursing. Will discontinue morphine and try dilaudid for better pain control. Added compazine as a secondary anti-emetic. Careful monitoring of vitals including HR, RR, BP and O2sat while on IV narcotics. Naloxone available if needed. Please call back any time if I can be of further assistance. Lalita Damico MD Submit an eTicket CTOR MARKET RESEARCH * Evan Hernandez MD - 07/02/2018 3:45 PM CST [facility] Adult Hospitalist Progress Note Admit Date: 06/29/2018 Date of Note: 07/02/2018, 3:45 PM LOS: 1 day Previous history of present illness and review of systems have been reviewed today as documented inthe Consult on 06/29/2018; medications, labs, studies, notes, orders and consults have been reviewed.I have reviewed the notes from admission. Subjective: Complain of more abdominal pain. Now off insulin drip per endocrinology. Endocrinology following. Objective: BP 101/56 (BP Location: Left arm, Patient Position (BP): Lying right side) Pulse 84 Temp 98.2 ??F (36.8 ??C) (Oral) Resp 15 Ht 5' 5 (1.651 m) Wt 92.5 kg (204 lb) SpO2 97% ? No BMI 33.95 kg/m?? Temp (24hrs), Av.3 ??F (36.8 ??C), Min:98 ??F (36.7 ??C), Max:98.5 ??F (36.9 ??C) Small amount stool (07/01/18 2322) Exam: Gen alert, cooperative, no distress, appears stated age Lungs clear to auscultation bilaterally Heart S1 & S2 +, regular Abdomen soft, non-tender. Bowel sounds normal. Extremities extremities normal, atraumatic, no cyanosis or edema Data Base: I have reviewed all new available labs and studies resulted. Assessment/Plan of Actively Managed Problems 1. Abdominal pain -patient presents with severe difficult to control abdominal pain. Consistent with patient's previous history of hypertriglyceridemia and suspected chylomicronemia syndrome. Lipase within normal limits and CRP normal as well. Possibly precipitated by fatty meals. . - Pain control -Triglycerides levels increased to 933. Has received plasmapheresis in the past. During last admission her pain improved with insulin drip when triglyceride level trending down to less than 500. Consulted her nuclear fuels reclamation engineer Dr. Rudd. Endocrinology has a stopped insulin drip on 07/02/2018. Repeat serum triglycerides in a.m. Check a CMP and lipase in a.m. Follow further recommendations from endocrinology. ?? 2. Hypertriglyceridemia -has had marked hypertriglyceridemia in the past and has had a plasmapheresis as well. Patient reports that she was planning on seeing an nuclear fuels reclamation engineer at [facility] but has not yet done so. - See #01 -Fenofibrate; Lipitor - Fish oil ?? 3. Type 2 diabetes mellitus without complication, with long-term current use of insulin -Home on Lantus 28 units in a.m. and 38 units in p.m.; NovoLog 14,16,22. -Endocrinology following. Currently on Lantus 12 units daily; Humalog 3 units 3 times daily with meals; SSI. ?? 4. Chylomicronemia syndrome 5. Hypothyroidism 6. Metabolic syndrome 7. GERD (gastroesophageal reflux disease) ? 1. DVT Prophylaxis Enoxaparin 2. GI Prophylaxis: Protonix 3. Code status Full Code 4. Disposition: home in 2-3 days once serum triglyceride levels stable and abdominal pain controlled. Stable/Resolved Issues/Follow Up Needs More than 35 minutes were spent in the care of this patient today; more than 50% was spent in discussion of expected course of disease, discussion of prognosis, discharge planning, coordination of care and discussion of lab and test results. Evan Hernandez MD [facility] Pager On-call pager [phone] CTOR MARKET RESEARCH * Nery Viramontes NP - 07/02/2018 1:59 PM CST Name: Casandra Jones : 1975 Date: 07/02/2018 Room/Bed: 4230/1 Hospital Day: LOS: 1 day SUBJECTIVE: Patient not feeling well, did not have lunch, had a small meal at lunch. Feels nauseated. REVIEW OF SYSTEMS: Constitutional: denies fevers, chills, sweats, fatigue, malaise, anorexia, weight loss Respiratory: denies cough, dyspnea, hemoptysis, stridor, wheeze, chest pain Cardiovascular: denies chest pain or discomfort, exertional chest pressure/discomfort, fatigue, pounding heart/chest, nausea, syncope, shortness of breath Gastrointestinal: abdominal pain and vomiting Genitourinary: denies dysuria, frequency, hematuria, hesitancy, nocturia, urinary incontinence Endocrine: denies sudden changes in mood, temperature intolerance, polyuria, polydipsia, skin changes MEDICATIONS: Current Facility-Administered Medications Medication Dose Route Frequency Provider Last Rate Last Dose ??? insulin lispro (HumaLOG) injection 3 Units 3 Units subCUT TID Meals Sidberry, Nery L, JAVASCRIPT SOFTWARE ENGINEER ??? insulin lispro (HumaLOG) variable dose injection subCUT TID Meals Sidsteven, Nery L, JAVASCRIPT SOFTWARE ENGINEER ??? insulin lispro (HumaLOG) variable dose injection subCUT Daily BEDTIME Sidberry, Nery L, JAVASCRIPT SOFTWARE ENGINEER ??? insulin glargine (LANTUS) injection 12 Units 12 Units subCUT Daily Breakfast Wander, Nery L, JAVASCRIPT SOFTWARE ENGINEER 12 Units at 07/02/18 1202 ??? [DISCONTINUED] insulin glargine (LANTUS) injection 12 Units 12 Units subCUT See Admin Notes Nery Viramontes NP ??? niacin (NIACOR) tablet 500 mg 500 mg Oral BID Evan Hernandez MD 500 mg at 07/02/18 0816 ??? Fish Oil-[place]-3 Fatty Acids 360-1,200 mg capsule 2 Capsule 2 Capsule Oral BID Eliane Rosado MD 2 Capsule at 07/02/18 0823 ??? [DISCONTINUED] Fish Oil-[place]-3 Fatty Acids 360-1,200 mg capsule 1 Capsule 1 Capsule Oral BID Evan Hernandez MD ??? LORazepam (ATIVAN) tablet 1 mg 1 mg Oral BID PRN Pernell Tapia MD 1 mg at 07/02/18 1137 ??? dicyclomine (BENTYL) capsule 10 mg 10 mg Oral QID Pernell Tapia MD 10 mg at 07/02/18 1212 ??? ondansetron (ZOFRAN ODT) tablet 4 mg 4 mg Oral q 6 hour PRN Pernell Tapia MD 4 mg at 728 ??? fenofibrate (LOFIBRA) tablet 160 mg 160 mg Oral Daily Pernell Tapia MD 160 mg at 07/02/18 0823 ??? oxyCODONE-acetaminophen (PERCOCET) 5-325 mg per tablet 1 Tablet 1 Tablet Oral q 4 hour PRN Pernell Tapia MD 1 Tablet at 07/02/18 1212 ??? gmbwvow-qypdpm-dmcdeuqk DR (CREON 12) 60-12-38 per capsule 2 Capsule 2 Capsule Oral QID Meals Pernell Tapia MD 2 Capsule at 07/02/18 1137 ??? pantoprazole (PROTONIX) tablet 40 mg 40 mg Oral BID Pernell Tapia MD 40 mg at 07/02/18 0823 ??? citalopram (CeleXA) tablet 40 mg 40 mg Oral Daily BEDTIME Pernell Tapia MD 40 mg at 07/01/182019 ??? traZODone (DESYREL) tablet 100 mg 100 mg Oral Daily BEDTIME Pernell Tapia MD 100 mg at 07/01/18 2019 ??? levothyroxine (SYNTHROID) tablet 200 mcg 200 mcg Oral Daily EARLY Pernell Tapia MD 200 mcg at07/02/18 0600 ??? naloxone (NARCAN) 0.4 mg/mL injection 0.1 mg 0.1 mg IV See Admin Notes Pernell Tapia MD ??? enoxaparin (LOVENOX) injection 40 mg 40 mg subCUT q 24 hour Pernell Tapia MD 40 mg at 07/02/18 0824 ??? acetaminophen (TYLENOL) tablet 650 mg 650 mg Oral q 6 hour PRN Pernell Tapia MD 650 mg at 07/02/18 1137 ??? morphine 4 mg/mL injection 4 mg 4 mg IV q 4 hour PRN Pernell Tapia MD 4 mg at 07/02/18 1311 ??? atorvastatin (LIPITOR) tablet 80 mg 80 mg Oral Daily BEDTIME Pernell Tapia MD 80 mg at 07/01/182019 ??? dextrose 5% - sodium chloride 0.9% infusion 40 mL/hr IV See Admin Notes Pernell Tapia MD ??? dextrose 50% (D50) syringe 12.5 Gram 12.5 Gram IV See Admin Notes Pernell Tapia MD ??? dextrose 50% (D50) syringe 25 Gram 25 Gram IV See Admin Notes Pernell Tapia MD ??? insulin regular (HUMULIN R,NOVOLIN R) 100 Units in sodium chloride 0.9% 100 mL infusion 0-25 Units/hr IV Titrate Niki Davenport MBBS 2.5 mL/hr at 07/02/18 1203 2.5 Units/hr at 07/02/18 1203 ??? glucagon HCl 1 mg injection 1 mg 1 mg IM See Admin Notes Niki Davenport MBBS ??? dextrose 5% - sodium chloride 0.45% infusion IV Continuous Niki Davenport MBBS 150 mL/hr at07/02/18 1210 ??? sodium chloride 0.45% infusion IV Continuous Niki Davenport MBBS ??? diphenhydrAMINE (BENADRYL) tablet 25 mg 25 mg Oral q 6 hour PRN Niki Davenport MBBS 25 mg at 07/02/18 0928 ??? nicotine (NICODERM CQ) 21 mg/24 hr transdermal patch 1 Patch 1 Patch Transdermal Daily Lalita Damico MD 1 Patch at 07/02/18 0824 ALLERGIES: Allergies Allergen Reactions ??? Green Pepper Hives ??? Adhesive Unknown ??? Aspartame Headache All artificial sweeteners. ??? Adhesive Tape-Silicones Hives PHYSICAL EXAM: BP 103/52 (BP Location: Left arm, Patient Position (BP): Supine) Pulse 91 Temp 98.2 ??F (36.8 ??C) (Oral) Resp 12 Ht 5' 5 (1.651 m) Wt 92.5 kg (204 lb) SpO2 94% ? No BMI33.95 kg/m?? GEN: Alert CARD: RRR ABD: tender; bowel sounds present RESP: rrr LABS: Recent Labs 06/29/18201606/30/18 0611 07/01/18 0308 07/02/18 0516 WBC 8.6 8.1 7.0 5.9 HGB 12.9 12.1 10.7* 10.8* HCT 38.9 38.4 32.8* 33.2* PLT 269 234 192 201 NA 136 138 134* 139 K 4.1 3.9 3.6 4.1 CL 102 103 100 105 CO2 23 25 25 24 BUN 13 11 9 7 CREAT 0.60 0.59 0.58 0.59 GLUCOSE 169* 88 119* 128* ALT 10 -- -- -- AST 14 -- -- -- INR 0.9 -- -- -- Previous Hemoglobin A1C Results: HEMOGLOBIN A1C Date Value Ref Range Status 06/29/2018 7.7 (H) <5.7 % Final 05/16/2018 8.0 (H) <5.7 % Final 03/08/2018 8.7 (H) <5.7 % Final POC Glucose Range: Lab Results Component Value Date/Time GLUCPOC 183 (H) 07/02/2018 01:02 PM GLUCPOC 198 (H) 07/02/2018 12:00 PM GLUCPOC 153 (H) 07/02/2018 11:02 AM GLUCPOC 133 (H) 07/02/2018 10:05 AM GLUCPOC 112 (H) 07/02/2018 08:58 AM GLUCPOC 90 07/02/2018 08:09 AM GLUCPOC 106 (H) 07/02/2018 06:58 AM GLUCPOC 117 (H) 07/02/2018 06:10 AM GLUCPOC 125 (H) 07/02/2018 05:02 AM GLUCPOC 175 (H) 07/02/2018 04:03 AM ASSESSMENT AND PLAN: Type 2 Diabetes. a1c 7.7%. Transitioned to basal/bolus early this afternoon. 12 units of basal, and3 with meals. Diabetes, low fat diet. Patient has been counseled in the past about a low fat diet, consulted IP RD to assist with any gaps in knowledge and modify diet. Mixed hyperlipidemia. Continue Statin and Fenofibrate. Added fish oil 4g daily. Hypothyroidism. 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 Recommendations were discussed with Dr. Rudd, patient and nursing staff. Please page with questions. STELLA Bright CDE [phone] CTOR MARKET RESEARCH * Nery Viramontes NP - 07/02/2018 9:50 AM CST Name: Casandra Jones : 1975 Date: 07/02/2018 Room/Bed: [facility] Hospital Day: LOS: 1 day Full note to follow. Orders placed for transition to sub-q insulin. 12 units Lantus, discontinue the insulin gtt 2 hours later. 3 units Humalog with meals. Correction ACHS POC BS ACHS Spoke with patient's RN. Diabetic, low fat diet. Please page with questions. STELLA Bright E BA [phone] CTOR MARKET RESEARCH * Evan Hernandez MD - 07/01/2018 2:37 PM CST [facility] Adult Hospitalist Progress Note Admit Date: 06/29/2018 Date of Note: 07/01/2018, 2:37 PM LOS: 0 days Previous history of present illness and review of systems have been reviewed today as documented inthe Consult on 06/29/2018; medications, labs, studies, notes, orders and consults have been reviewed.I have reviewed the notes from admission. Subjective: Still has some abdominal pain. On insulin drip. Objective: BP 111/89 Pulse 82 Temp 98 ??F (36.7 ??C) (Oral) Resp 13 Ht 5' 5 (1.651 m) Wt 92.5 kg (204 lb) SpO2 98% ? No BMI 33.95 kg/m?? Temp (24hrs), Av ??F (36.7 ??C), Min:97.7 ??F (36.5 ??C), Max:98.5 ??F (36.9 ??C) Exam: Gen alert, cooperative, no distress, appears stated age Lungs clear to auscultation bilaterally Heart S1 & S2 +, regular Abdomen soft, non-tender. Bowel sounds normal. Extremities extremities normal, atraumatic, no cyanosis or edema Data Base: I have reviewed all new available labs and studies resulted. Assessment/Plan of Actively Managed Problems 1. Abdominal pain -patient presents with severe difficult to control abdominal pain. Consistent with patient's previous history of hypertriglyceridemia and suspected chylomicronemia syndrome. Lipase within normal limits and CRP normal as well. Possibly precipitated by fatty meals. . - Pain control -Triglycerides levels were elevated 870. Has received plasmapheresis in the past. Currently no indication for plasmapheresis. During last admission her pain improved with insulin drip when triglyceride level trending down to less than 500. Continue with insulin. Monitor triglyceride levels. Consulted her nuclear fuels reclamation engineer Dr. Rudd. ?? 2. Hypertriglyceridemia -has had marked hypertriglyceridemia in the past and has had a plasmapheresis as well. Patient reports that she was planning on seeing an nuclear fuels reclamation engineer at [facility] but has not yet done so. - See #01 -Fenofibrate - Fish oil ?? 3. Type 2 diabetes mellitus without complication, with long-term current use of insulin -Home on Lantus 28 units in a.m. and 38 units in p.m.; NovoLog 14,16,22._ Lantus 15 -Currently on insulin drip due to #1 & #2 ?? 4. Chylomicronemia syndrome 5. Hypothyroidism 6. Metabolic syndrome 7. GERD (gastroesophageal reflux disease) ? 1. DVT Prophylaxis Enoxaparin 2. GI Prophylaxis: Protonix 3. Code status Full Code 4. Disposition: home in 2-3 days. Stable/Resolved Issues/Follow Up Needs More than 35 minutes were spent in the care of this patient today; more than 50% was spent in discussion of expected course of disease, discussion of prognosis, discharge planning, coordination of care and discussion of lab and test results. Evan Hernandez MD [facility] P[facility] On-call pager [phone] [employer] MARK[employer]EARCH * Lilo Back NP - 06/30/2018 11:02 PM CST [facility] Cross Cover Call Called for: itching unrelieved by benadryl Last Recorded Vitals: BP 115/82 (BP Location: Right arm, Patient Position (BP): Supine) Pulse 65 Temp 98 ??F (36.7 ??C) (Oral) Resp 14 Ht 5' 5 (1.651 m) Wt 92.5 kg (204 lb) SpO2 98% ? No BMI 33.95 kg/m?? Documentation/Intervention/Outcome: Chart reviewed. Patient admitted for abdominal pain. Hx of marked hypertriglyceridemia. Rn reporting patient continues to have itching. She has an allergy to adhesives. RN reports patient does have redness noted on her arms and back and reports itching all over. She received 25mg benadryl at 2039. - order placed for 25 mg atarax x 1 Please call back any time if I can be of further assistance. LILO BACK NP Submit an eTicket [employer]EARCH * Lalita Damico MD - 06/30/2018 9:28 PM CST [facility] Cross Cover Call Called for: request for nicotine patch Last Recorded Vitals: BP (!) 115/94 (BP Location: Right arm, Patient Position (BP): Supine) Pulse65 Temp 97.7 ??F (36.5 ??C) (Oral) Resp 19 Ht 5' 5 (1.651 m) Wt 92.5 kg (204 lb) SpO2 100% ? No BMI 33.95 kg/m?? Documentation/Intervention/Outcome: Chart reviewed. Order provided. Please call back any time if I can be of further assistance. Lalita Damico MD Submit an eTicket [employer]EARCH * Niki Davenport MBBS - 06/30/2018 6:45 PM CST TGL level trending up. FSBG in 80s. Increased d5-0.45 150cc/hr. Informed RN to start insulin drip once FSBG >150. Niki Davenport MD, Hospitalist. Pager:[phone] [employer] * Lenka Van RN - 06/30/2018 5:31 PM CST Paged Hospitalist regards to patient insulin drip question and fluids infusing. [employer] MARK[employer] RESEARCH * Eda eFlipe RN - 06/30/2018 4:35 PM CST Undress and Assess performed by: Eda OLGUIN & Rosalva PCT Admission or upon transfer to: [place] [id number] ~~~~~~~~~~~~~~~~~~~~~~~~~~~~ Is the patient a paraplegic/quadriplegic? NO Does the patient have new purple/sissy/dark red over bony prominences? NO Does the patient have an ostomy? NO Is the length of stay >2 weeks? NO ~If ANY answer 'yes'- please consult~ Patient does not have skin breakdown. Wound care consult was not initiated. Location/ Description of breakdown: Apply Protective Dressings to Sacrum and Heels (Mepilex) as per Pathway Patient arrived to this room with the following belongings/valuables:none Patient arrived to this room with the following medical equipment/devices none All Jewelry removed from patient none Disposition of belongings/valuables: [employer]EARCH * Niki Davenport MBBS - 06/30/2018 2:32 PM CST Patient seen and examined today. Please see Dr. Tapia HPI for more details. Patient with history of severe hypertriglyceridemia, insulin-dependent diabetes mellitus, obesity, multiple admission for abdomen pain thought due to chylomicronemia syndrome again admitted for abdomen pain. Lipase within normal limits. Triglyceride levels elevated to 790s. Has received plasmapheresis in the past. Currently there is no indication for plasmapheresis. During last admission her pain improved with insulin drip when triglyceride level trended down to less than 500. Ordered for insulin drip. Transferred toTCU for insulin drip. Monitor triglyceride level every 12 hours. Niki Davenport MD, Hospitalist. Pager:[phone] [employer]EARCH * Stephy Reese RN - 06/30/2018 1:20 PM CST Pt has c/o itching ronaldo CARNEY for benadryl. Pt is NPO at this time, waiting for MRCP. [employer] MARKET RESEARCH documented in this encounter H&P Notes * Pernell Tapia MD - 06/30/2018 1:31 AM CST [facility] Adult Hospitalist Admission H & P Patient Name: Casandra Jones Primary Care Doctor: Guerrero Middleton PA-C Date of Admission: 06/29/2018 Date of Service: 06/30/2018 Chief Complaint: Abdominal pain HPI: Patient is a 42 y.o. female with a past medical history of hypertriglyceridemia, IDDM, obesity, andsuspected presenting with abdominal pain. The patient reports for the past 3 days she's been havingprogressively worsening abdominal pain associated with nausea but no emesis. It is epigastric in location and radiates to her back. Patient reports that this pain is similar to the pain she had in the ED. She reports that she sometimes has worsening of her abdominal pain with fatty foods. Patient ate pizza prior to arrival to the ED. At the time of my interview the patient's pain was improved but still 5/10. Still with some nausea but no vomiting. Of note in her recent past, the patient was admitted for similar issues on 06/02/2018. Patient was treated with insulin drip and her triglycerides improved and was discharged. Past Medical History: Past Medical History: Diagnosis [...] HYSTERECTOMY partial due to endometriosis 2006 ??? PA ESOPHAGOGASTRODUODENOSCOPY TRANSORAL DIAGNOSTIC N/A 03/08/2018 ESOPHAGOGASTRODUODENOSCOPY performed by Ceasar Vega MD at [facility] Current Medications: Prior to Admission Medications Prescriptions Last Dose Informant Patient Reported? Taking? LORazepam (ATIVAN) 1 mg tablet 06/29/2018 at Unknown time Yes Yes Sig: Take 1 mg by mouth 2 times daily as needed for Anxiety . [id number]-FA-Fish Oil [phone] vl-es-mrk-mcg Capsule 06/29/2018 at 0900 No Yes Sig: Take 2 Caplets by mouth 2 times daily. nbspyoe-jbgbyd-lcpkrgom DR (AMELIA) 60-12-38 capsule 06/29/2018 at 1700 Yes Yes Sig: Take 2 Capsules by mouth 4 times daily with meals and at bedtime. citalopram (CeleXA) 40 mg tablet 06/28/2018 at 2100 Yes Yes Sig: Take 40 mg by mouth daily at bedtime. dicyclomine (BENTYL) 10 mg capsule 06/29/2018 at 1700 No Yes Sig: Take 1 Capsule by mouth 4 times daily. fenofibrate (LOFIBRA) 160 mg Oral Tab 06/29/2018 at 0900 No Yes Sig: Take 1 Tab by mouth daily. insulin aspart (NovoLOG) 100 unit/mL injection 06/29/2018 at 1700 Yes Yes Sig: Inject 1 Units by subcutaneous injection AM : 14 u Lunch: 16 u PM : 22 u . insulin glargine (LANTUS) 100 unit/mL injection 06/29/2018 at 0900 Yes Yes Sig: Inject 28 Units by subcutaneous injection 2 times daily 28 units in the AM 38 units in the PM. levothyroxine 200 mcg tablet 06/29/2018 at 0900 No Yes Sig: Take 1 Tablet by mouth daily without food in the morning 30 minutes before eating anything. metFORMIN (GLUCOPHAGE) 500 mg tablet 06/29/2018 at 0900 No Yes Sig: Take 2 Tablets by mouth 2 times daily with meals. niacin (NIACOR) 500 mg tablet 06/29/2018 at 0900 Yes Yes Sig: Take 500 mg by mouth 2 times daily. ondansetron (ZOFRAN ODT) 4 mg Tablet, Rapid Dissolve 06/29/2018 at 1700 No Yes Sig: Dissolve 1 tablet on top of tongue, then swallow with saliva every 6 hours as needed for nausea/vomiting. oxyCODONE-acetaminophen (PERCOCET) 5-325 mg tablet 06/29/2018 at 1700 No Yes Sig: Take 1 tablet by mouth every 4 hours as needed for pain. Max Daily Amount: 6 Tablets pantoprazole (PROTONIX) 40 mg Tablet, Delayed Release (E.C.) 06/29/2018 at 0900 Yes Yes Sig: Take 40 mg by mouth 2 times daily . rosuvastatin (CRESTOR) 20 mg tablet 06/29/2018 at 0900 Yes Yes Sig: Take 20 mg by mouth daily at bedtime. spironolactone (ALDACTONE) 25 mg tablet 06/29/2018 at 0900 Yes Yes Sig: Take 25 mg by mouth daily. traZODone (DESYREL) 100 mg tablet 06/28/2018 at 2100 Yes Yes Sig: Take 100 mg by [...] Alcohol use No Review of Systems: Gen: No fever or chills Eyes: No visual changes Ears: No change in hearing Endocrine: No heat or cold intolerance Pulm: No cough or SOB Cardiac: No chest pain or orthopnea GI: Abdominal pain with nausea. : No hematuria, urgency or frequency Musculoskeletal: No pain or weakness Neuro: No numbness or tingling Psych: No anxiety or depression Skin: No rashes or eruptions All other ROS reviewed and are negative Physical Exam: Patient Vitals for the past 8 hrs: BP Temp Temp src Pulse Resp SpO2 Height Weight 06/30/18 0052 121/82 97.7 ??F (36.5 ??C) Oral 77 16 98 % 5' 5 (1.651 m) 92.5 kg (204 lb) 06/30/18 0000 109/76 - - 71 16 92 % - - 06/29/18 2300 103/73 - - 74 - 91 % - - 06/29/18 2200 115/75 - - 76 - 91 % - - 06/29/18 1914 136/83 98.2 ??F (36.8 ??C) Oral - 16 98 % 5' 5 (1.651 m) 90.7 kg (200 lb) General: Alert, oriented, no distress, cooperative with examination. obese HENT: NC/AT, throat clear with tongue and uvula midline Eyes: Normal appearing conjunctiva bilaterally, sclera non-icteric, pupils are reactive bilaterallyto light Neck: Supple neck, trachea is midline, no thyroid tenderness is noted. Heart: Regular rate/rhythm, S1/S2 present without murmurs, rubs or gallops. Lungs: Symmetric chest expansions, clear to auscultation bilaterally without wheezing, rhonchi or crackles Abdomen: Soft, minimally TTP in mid epigastric area, non-distended and bowel sounds present. Extremities: No clubbing, cyanosis or edema present bilaterally Neuro: CN2-12 grossly intact. Sensation intact to light touch throughout bilateral UE/LE - MS: Alert, follows commands, answers questions without aphasia Psych: Calm and appropriate with normal affect. No delusions. Data Base: Lab: Results for orders placed or performed during the hospital encounter of 06/29/18 (from the past 24 hour(s)) CBC WITH DIFFERENTIAL Result Value Ref Range WBC 8.6 4.0 - 9.8 K/uL RBC 4.23 3.90 - 4.90 M/uL HEMOGLOBIN 12.9 11.8 - 14.8 g/dL HEMATOCRIT 38.9 35.5 - 44.0 % MCV 92.0 82.0 - 99.0 fL MCH 30.5 27.2 - 32.6 pg MCHC 33.2 31.5 - 35.5 g/dL RDW 14.1 11.5 - 14.5 % RDW-STDEV 48.2 37.1 - 48.7 fL PLATELETS 269 140 - 350 K/uL MPV 8.9 (L) 9.3 - 12.4 fL NEUTROPHILS 61 % LYMPHOCYTES 33 % MONOCYTES 5 % EOSINOPHILS 1 % BASOPHILS 0 % IMMATURE GRANULOCYTES 1 % NEUTROPHIL ABSOLUTE 5.21 1.90 - 7.00 K/uL LYMPHOCYTE ABSOLUTE 2.84 0.70 - 4.50 K/uL MONOCYTE ABSOLUTE 0.40 0.10 - 1.30 K/uL EOSINOPHIL ABSOLUTE 0.09 0.00 - 0.70 K/uL BASOPHILS ABSOLUTE 0.03 0.00 - 0.20 K/uL IMMATURE GRANULOCYTES ABSOLUTE 0.04 (H) 0.00 - 0.03 K/uL COMPREHENSIVE METABOLIC PANEL Result Value Ref Range SODIUM 136 136 - 145 mmol/L POTASSIUM 4.1 3.5 - 5.0 mmol/L CHLORIDE 102 98 - 107 mmol/L CO2 23 22 - 29 mmol/L CALCIUM 9.6 8.6 - 10.2 mg/dL BUN 13 6 - 20 mg/dL CREATININE 0.60 0.51 - 0.95 mg/dL GLUCOSE 169 (H) 74 - 99 mg/dL TOTAL PROTEIN 7.0 6.7 - 8.6 g/dL ALBUMIN 4.3 3.5 - 5.2 g/dL BILIRUBIN TOTAL <0.2 (L) 0.3 - 1.2 mg/dL ALKALINE PHOSPHATASE 66 35 - 104 U/L AST 14 <33 U/L ALT 10 <34 U/L GFR >60 >=60 mL/min/1.73 sq meter GFR, >60 >=60 mL/min/1.73 sq meter ANION GAP 11 8 - 16 mmol/L C-REACTIVE PROTEIN Result Value Ref Range CRP 3.0 <5.0 mg/L LIPASE Result Value Ref Range LIPASE 45 13 - 60 U/L PROTIME-INR Result Value Ref Range PROTIME 12.0 (L) 12.7 - 15.1 Seconds INR 0.9 0.9 - 1.1 HEMOGLOBIN A1C Result Value Ref Range HEMOGLOBIN A1C 7.7 (H) <5.7 % EST. AVG GLUCOSE, A1C 174 mg/dL URINALYSIS WITH REFLEX MICROSCOPIC Result Value Ref Range COLOR UA Yellow Pale to Dark Yellow CLARITY UA Clear Clear SPECIFIC GRAVITY UA 1.023 1.003 - 1.035 PH UA 5.0 5.0 - 8.0 LEUKOCYTE ESTERASE UA Negative Negative NITRITE UA Negative Negative PROTEIN UA Negative Negative GLUCOSE UA 1+ (A) Negative KETONES UA Negative Negative UROBILINOGEN UA Normal <2.0 mg/dL BILIRUBIN UA Negative Negative BLOOD UA Negative Negative DRUG SCREEN, URINE Result Value Ref Range AMPHETAMINE QUAL, URINE Negative Negative BARBITURATE QUAL, URINE Negative Negative BENZODIAZEPINE QUAL, URINE Negative Negative COCAINE QUAL URINE Negative Negative OPIATE QUAL, URINE Negative Negative CANNABINOIDS QUAL, URINE Presumptive Positive (A) Negative PCP QUAL, URINE Negative Negative OXYCODONE QUAL, URINE Presumptive Positive (A) Negative METHADONE QUAL, URINE Negative Negative CREATININE, URINE 122.2 29.0 - 226.0 mg/dL Recent hospitalizations and OP visits reviewed. Assessment and Plan: 1. Abdominal pain -patient presents with severe difficult to control abdominal pain. Consistent with patient's previous history of hypertriglyceridemia and suspected chylomicronemia syndrome. Lipase within normal limits and CRP normal as well. Possibly precipitated by eating pizza. - Pain control - Check triglyceride levels. If markedly elevated could consider insulin drip 2. Hypertriglyceridemia -has had marked hypertriglyceridemia in the past and has had a plasmapheresis as well. Patient reports that she was planning on seeing an nuclear fuels reclamation engineer at [facility] but has not yet done so. -Check levels -Fenofibrate - Statin 3. Type 2 diabetes mellitus without complication, with long-term current use of insulin -Lantus 15 -SSI 4. Chylomicronemia syndrome 5. Hypothyroidism 6. Metabolic syndrome 7. GERD (gastroesophageal reflux disease) 1. DVT Prophylaxis Enoxaparin 2. GI Prophylaxis: Protonix 3. Code status Full Code 4. Disposition: Anticipated length of stay less than 48 hours Discussed diagnosis and care plan with patient. Answered questions to their satisfaction. Pernell Tapia MD [employer] MARK[employer] RESEARCH documented in this encounter Consult Notes * Eliane Rosado MD - 07/01/2018 4:23 PM CSTAssociated Order(s): IP CONSULT TO ENDOCRINOLOGY Pt seen for inpatient management of hypertriglyceridemia HPI: Casandra is a 42 y/o female with dm2, obesity, hypothyroidism, hyperlipidemia, was admitted due toabdominal pain. Pt has hx of recurrent pancreatitis due to high triglycerides, needing plasmapharesis in the past during acute pancreatitis and triglycerides > 3000. Pt seeing Dr Martin for dm2 and hyperlipidemiamanagement. Claims to be compliant with diet, no etoh use During this hospital admission lipase normal, since triglycerides > 700- pt was started on insulin gtt and endocrine consulted. Pt is on clear liquid diet currently. Abdominal pain stable. Denies nausea or vomiting. Allergies Allergen Reactions ??? Green Pepper Hives ??? Adhesive Unknown ??? Aspartame Headache All artificial sweeteners. ??? Adhesive Tape-Silicones Hives Current Facility-Administered Medications Medication Dose Route Frequency Provider Last Rate Last Dose ??? niacin (NIACOR) tablet 500 mg 500 mg Oral BID Evan Hernandez MD 500 mg at 07/01/18 1718 ??? Fish Oil-[place]-3 Fatty Acids 360-1,200 mg capsule 2 Capsule 2 Capsule Oral BID Eliane Rosado MD ??? [DISCONTINUED] Fish Oil-[place]-3 Fatty Acids 360-1,200 mg capsule 1 Capsule 1 Capsule Oral BID Evan Hernandez MD ??? LORazepam (ATIVAN) tablet 1 mg 1 mg Oral BID PRN Pernell Tapia MD 1 mg at 07/01/18 0915 ??? dicyclomine (BENTYL) capsule 10 mg 10 mg Oral QID Pernell Tapia MD 10 mg at 07/01/181716 ??? ondansetron (ZOFRAN ODT) tablet 4 mg 4 mg Oral q 6 hour PRN Pernell Tapia MD 4 mg at ??? fenofibrate (LOFIBRA) tablet 160 mg 160 mg Oral Daily Pernell Tapia MD 160 mg at 07/01/18 09 ??? oxyCODONE-acetaminophen (PERCOCET) 5-325 mg per tablet 1 Tablet 1 Tablet Oral q 4 hour PRN Pernell Tapia MD 1 Tablet at 07/01/18 1600 ??? oaofqob-hogmdn-qlzgasnf DR (CREON 12) 60-12-38 per capsule 2 Capsule 2 Capsule Oral QID Meals Pernell Tapia MD 2 Capsule at 07/01/181716 ??? pantoprazole (PROTONIX) tablet 40 mg 40 mg Oral BID Pernell Tapia MD 40 mg at 07/01/18 0912 ??? citalopram (CeleXA) tablet 40 mg 40 mg Oral Daily BEDTIME Pernell Tapia MD 40 mg at 06/30/182109 ??? traZODone (DESYREL) tablet 100 mg 100 mg Oral Daily BEDTIME Pernell Tapia MD 100 mg at 06/30/18 223 ??? levothyroxine (SYNTHROID) tablet 200 mcg 200 mcg Oral Daily EARLY Pernell Tapia MD 200 mcg at07/01/18 09 ??? naloxone (NARCAN) 0.4 mg/mL injection 0.1 mg 0.1 mg IV See Admin Notes Pernell Tapia MD ??? enoxaparin (LOVENOX) injection 40 mg 40 mg subCUT q 24 hour Pernell Tapia MD 40 mg at 07/01/18 0911 ??? acetaminophen (TYLENOL) tablet 650 mg 650 mg Oral q 6 hour PRN Pernell Tapia MD 650 mg at 07/01/18 1408 ??? morphine 4 mg/mL injection 4 mg 4 mg IV q 4 hour PRN Pernell Tapia MD 4 mg at 07/01/18 1719 ??? atorvastatin (LIPITOR) tablet 80 mg 80 mg Oral Daily BEDTIME Pernell Tapia MD 80 mg at 06/30/18 2110 ??? dextrose 5% - sodium chloride 0.9% infusion 40 mL/hr IV See Admin Notes Pernell Tapia MD ??? dextrose 50% (D50) syringe 12.5 Gram 12.5 Gram IV See Admin Notes Pernell Tapia MD ??? dextrose 50% (D50) syringe 25 Gram 25 Gram IV See Admin Notes Pernell Tapia MD ??? insulin regular (HUMULIN R,NOVOLIN R) 100 Units in sodium chloride 0.9% 100 mL infusion 0-25 Units/hr IV Titrate Niki Davenport MBBS 2 mL/hr at 07/01/18 1800 2 Units/hr at 07/01/18 1800 ??? glucagon HCl 1 mg injection 1 mg 1 mg IM See Admin Notes Niki Davenport MBBS ??? dextrose 5% - sodium chloride 0.45% infusion IV Continuous Niki Davenport MBBS 150 mL/hr at07/01/18 1800 ??? sodium chloride 0.45% infusion IV Continuous Niki Davenport MBBS ??? diphenhydrAMINE (BENADRYL) tablet 25 mg 25 mg Oral q 6 hour PRN Niki Davenport MBBS 25 mg at 07/01/18 1414 ??? nicotine (NICODERM CQ) 21 mg/24 hr transdermal patch 1 Patch 1 Patch Transdermal Daily Lalita Damico MD 1 Patch at 07/01/18 1101 ??? [COMPLETED] hydrOXYzine HCl (ATARAX) tablet 25 mg 25 mg Oral ONCE Lilo Back NP 25 mg at 06/30/18 2335 Past Medical History: Diagnosis Date ??? Anxiety [...] HYSTERECTOMY partial due to endometriosis 2006 ??? PA ESOPHAGOGASTRODUODENOSCOPY TRANSORAL DIAGNOSTIC N/A 03/08/2018 ESOPHAGOGASTRODUODENOSCOPY performed by Ceasar Vega MD at [facility] Social History Substance Use Topics [...] anxiety Musculoskeletal: denies arthralgias, myalgias. Exam: Vitals: 07/01/18 1909 BP: 111/73 Pulse: 84 Resp: 18 Temp: 98.4 ??F (36.9 ??C) SpO2: 100% Gen: Awake and alert in NAD , obese Neuro: Oriented x 3, non focal , SPARKS equally HEENT: PERRL, trachea midline, oral mucosa dry Cardiac: HRRR no murmur, no JVD or cyanosis Pulm: RR even unlabored, LCTA bilaterally Abdomen: soft , mild TTP epigastric and LQU.no rebound or guarding. Skin: no rashes. Extremities: no edema, 1+ pulses Labs and imaging reviewed. A/P: Mixed hyperlipidemia : pt is on statin and max dose fenofibrate . Pt seen clinical psychologist in the past/ Will add fish oil 4 gms daily Pt was taking niaspan 1000 mg daily as outpatient - not on formulary in the hospital. Since pancreatic enzymes normal- no need for plasmapharesis. Will change insulin gtt to basal bolus regimen in am. Advance diet as tolerated. Low fat diet. Dm2: bg well controlled in the hospital. Will change to basal / bolus in am. Hypothyroidism: pt is on 200 mcg of levothyroxine daily Needs repeat tsh in July as outpatient. Thank you for allowing me to participate in the care of this patient. Please feel free to call me if you have any questions. Sincerely, Suzi Rosado MD [employer] MARK[employer] RESEARCH * Sergio Souza RN - 07/01/2018 10:04 AM CSTAssociated Order(s): IP CONSULT TO IV TEAM IV CONSULT: Request for IV consult. Reviewed electronic record and completed a vascular assessment. PIV startedusing US guidance x2 attempts and documented in EPIC. Bed in low position,HOB up 35 degrees,?? siderails up X2. Safety check completed. RN notified. ?? CTOR MARKET RESEARCH documented in this encounter ED Notes * Shiloh Kirkland RN - 06/30/2018 12:27 AM CST Patient/family has been informed about benefits and any potential clinically significant side effects or other concerns regarding the administration of the drug they have just been given. [employer] MARKET RESEARCH * Shiloh Kirkland RN - 06/30/2018 12:19 AM CST Report called to receiving RN, questions and concerns answered at this time. Transport requested totake patient to new room assignment. [employer]OR MARKET RESEARCH * Shiloh Kirkland RN - 06/29/2018 10:48 PM CST Patient resting quietly on stretcher. Patient denies any new complaints at this time. Respirations even and unlabored, equal rise and fall of the chest noted. Call light within patient's reach. [employer]OR MARKET RESEARCH * Shiloh Kirkland RN - 06/29/2018 9:46 PM CST Patient resting quietly on stretcher. Patient denies any new complaints at this time. Respirations even and unlabored, equal rise and fall of the chest noted. Call light within patient's reach. CTOR MARKET RESEARCH * Shiloh Kirkland RN - 06/29/2018 9:17 PM CST Patient/family has been informed about benefits and any potential clinically significant side effects or other concerns regarding the administration of the drug they have just been given. CTOR MARKET RESEARCH * Shiloh Kirkland RN - 06/29/2018 8:50 PM CST 42yof presented to the ED with c/o abdominal pain that started approx 3x days ago. Pt has hx of pancreatitis, reports she has been in and out of the hospital for the past few months . +N/V, reports she took dose of zofran at home without relief. Pt also complaining of generalized abdominal pain, pt tried taking percocet at home without relief. +6x diarrhea today. Denies CP or SOB. Aox4, RR even and unlabored with equal rise and fall of the chest noted. Pt placed on continuous environmental monitoring technician, NIBP and pulse ox. Skin PWD. Call light within reach, VSS, NAD at this time. Family at bedside. CTOR MARKET RESEARCH * Shiloh Kirkland RN - 06/29/2018 8:22 PM CST MD Duran at bedside CTOR MARKET RESEARCH * Karen Hassan RN - 06/29/2018 7:18 PM CST We promote safety at our facility and do not allow any type of weapon in the building. Do you have a weapon or something that could be used as a weapon on you today? denied possession of any weapons or firearms at this time [employer] MARK[employer] RESEARCH * Eva Duran MD - 06/29/2018 7:09 PM CST HISTORY OF PRESENT ILLNESS Casandra Jones, a 42 y.o. female presents to the ED with a Chief Complaint of Abdominal Pain Subjective 8:26 PM: Casandra Jones is a 42 y.o. female with a history of DM, HLD, hypertriglyceridemia, GERD, depression, anxiety, PCOS, s/p hysterectomy, hypothyroidism, pancreatitis, appendectomy, who presentswith sharp, stabbing LUQ abdominal pain onset 3 days ago that now radiates to her back, with associated headache, nausea, and generalized swelling. Last PO intake was 6 hours ago. She reports taking a percocet and zofran several hours ago without significant relief of pain or nausea. Pt was recently discharged from here on 06/05, after being admitted for chylomicronemia. Senior Designer/Art Director: Dr. Mayer. Bar Staff: Dr. Rudd. Physician(s): Guerrero Middleton PA-C History provided by: The patient Arrived by: Private vehicle Arrived from: Home REVIEW OF SYSTEMS Review of Systems Constitutional: swelling HENT: Negative for sore throat. Respiratory: Negative for cough, chest tightness and shortness of breath. Cardiovascular: Negative for chest pain. Gastrointestinal: Positive for abdominal pain and nausea. Negative for diarrhea and vomiting. Musculoskeletal: Positive for back pain. Negative for neck pain. Neurological: Positive for [...] PCOS (polycystic ovarian syndrome); Hypothyroidism; Tobacco use; Hypertriglyceridemia; Type 2 diabetes mellitus without complication, with long-term current use of insulin; Hyponatremia; GERD (gastroesophageal reflux disease); Abdominal pain; Chylomicronemia syndrome;Hypertriglyceridemia; Depression with anxiety; History of plasmapheresis; and Acute pancreatitis onher problem list. ALLERGIES Green pepper; Adhesive; Aspartame; and Adhesive tape-silicones HOME MEDICATIONS Patient's Home Medications Current Home Medications [id number] DR MAGUIRE) 60-12-38 CAPSULE CITALOPRAM (CELEXA) 40 MG TABLET DICYCLOMINE (BENTYL) 10 MG CAPSULE FENOFIBRATE (LOFIBRA) 160 MG ORAL TAB INSULIN ASPART (NOVOLOG) 100 UNIT/ML INJECTION INSULIN GLARGINE (LANTUS) 100 UNIT/ML INJECTION LEVOTHYROXINE 200 MCG TABLET LORAZEPAM (ATIVAN) 1 MG TABLET METFORMIN (GLUCOPHAGE) 500 MG TABLET NIACIN (NIACOR) 500 MG TABLET [id number]-FISH OIL [id number] [id number] CAPSULE ONDANSETRON (ZOFRAN ODT) 4 MG TABLET, RAPID DISSOLVE OXYCODONE-ACETAMINOPHEN (PERCOCET) 5-325 MG TABLET PANTOPRAZOLE (PROTONIX) 40 MG TABLET, DELAYED RELEASE (E.C.) ROSUVASTATIN (CRESTOR) 20 MG TABLET SPIRONOLACTONE (ALDACTONE) 25 MG TABLET TRAZODONE (DESYREL) 100 MG TABLET Medications Modified during this Encounter Medications Discontinued during this Encounter Objective PHYSICAL EXAM INITIAL VS BP: 136/83 (06/29/181913), Heart Rate: 89 bpm (06/29/181913), Resp: 16 (06/29/181913), Pulse: 76(06/29/18 2200), Temp: 98.2 ??F (36.8 ??C) (06/29/181913), Temp src: Oral (06/29/181913), SpO2: 98 % (06/29/181913), Height: 5' 5 (165.1 cm) (06/29/181913), Weight: 90.7 kg (200 lb) (06/29/181913), BMI (Calculated): 33.28 (06/29/181913) No LMP recorded. Patient has had a hysterectomy. Physical Exam Constitutional: She is oriented to person, place, and time. HENT: Head: Normocephalic and atraumatic. Eyes: Pupils are equal, round, and reactive to light. EOM are normal. Neck: No JVD present. No spinous process tenderness present. No tracheal deviation present. Cardiovascular: Normal rate. No murmur heard. Pulmonary/Chest: No respiratory distress. She has no wheezes. She has no rales. She exhibits no tenderness. Abdominal: Soft. She exhibits no mass. There is tenderness in the left upper quadrant. There is CVAtenderness (left). Musculoskeletal: Normal range of motion. She exhibits no edema or tenderness. Neurological: She is alert and oriented to person, place, and time. No cranial nerve deficit. Skin: Skin is warm and dry. No rash noted. Psychiatric: Her behavior is normal. Nursing note and vitals reviewed. DIAGNOSTICS LAB: CBC WITH DIFFERENTIAL - Abnormal Result Value WBC 8.6 RBC 4.23 HEMOGLOBIN 12.9 HEMATOCRIT 38.9 MCV 92.0 MCH 30.5 MCHC 33.2 RDW 14.1 RDW-STDEV 48.2 PLATELETS 269 MPV 8.9 (*) NEUTROPHILS 61 LYMPHOCYTES 33 MONOCYTES 5 EOSINOPHILS 1 BASOPHILS 0 IMMATURE GRANULOCYTES 1 NEUTROPHIL ABSOLUTE 5.21 LYMPHOCYTE ABSOLUTE 2.84 MONOCYTE ABSOLUTE 0.40 EOSINOPHIL ABSOLUTE 0.09 BASOPHILS ABSOLUTE 0.03 IMMATURE GRANULOCYTES ABSOLUTE 0.04 (*) COMPREHENSIVE METABOLIC PANEL - Abnormal SODIUM 136 POTASSIUM 4.1 CHLORIDE 102 CO2 23 CALCIUM 9.6 BUN 13 CREATININE 0.60 GLUCOSE 169 (*) TOTAL PROTEIN 7.0 ALBUMIN 4.3 BILIRUBIN TOTAL <0.2 (*) ALKALINE PHOSPHATASE 66 AST 14 ALT 10 GFR >60 GFR, >60 ANION GAP 11 URINALYSIS WITH REFLEX MICROSCOPIC - Abnormal COLOR UA Yellow CLARITY UA Clear SPECIFIC GRAVITY UA 1.023 PH UA 5.0 LEUKOCYTE ESTERASE UA Negative NITRITE UA Negative PROTEIN UA Negative GLUCOSE UA 1+ (*) KETONES UA Negative UROBILINOGEN UA Normal BILIRUBIN UA Negative BLOOD UA Negative DRUG SCREEN, URINE - Abnormal AMPHETAMINE QUAL, URINE Negative BARBITURATE QUAL, URINE Negative BENZODIAZEPINE QUAL, URINE Negative COCAINE QUAL URINE Negative OPIATE QUAL, URINE Negative CANNABINOIDS QUAL, URINE Presumptive Positive (*) PCP QUAL, URINE Negative OXYCODONE QUAL, URINE Presumptive Positive (*) METHADONE QUAL, URINE Negative CREATININE, URINE 122.2 PROTIME-INR - Abnormal PROTIME 12.0 (*) INR 0.9 HEMOGLOBIN A1C - Abnormal HEMOGLOBIN A1C 7.7 (*) EST. AVG GLUCOSE, A1C 174 C-REACTIVE PROTEIN - Normal CRP 3.0 LIPASE - Normal LIPASE 45 RADIOLOGY: No orders to display No orders to display EKG: PROCEDURES Procedures MEDICAL DECISION MAKING AND PLAN OF CARE On initial encounter, discussed plan for labs, nausea and pain control 8:43 PM: Discussed the patient with Dr. Mayer (Cardiology) who states pt has a history of noncompliance with her care. Her triglycerides have gone up and her weight has also increased 15 pounds in the last 1 month. Patient is also due to go to [facility] for care of her metabolic syndrome 11:50 PM: Updated on results and offered discharge on pain meds vs admission and pt would like to be admitted. ED provider and ED nurse verbally discussed patient plan of care at this time. 11:53 PM: Discussed the patient with Dr. Tapia ([facility] Hospitalist) who will admit. [facility] Summary Statement: 42 y.o. female presents with LUQ abdominal pain onset 3 days ago with associated nausea, headache. Labs unremarkable. Offered discharge on pain meds vs admission and pt would like to be admitted to check her triglycerides. Discussed with Dr. Tapia, who will admit to medicine for further evaluationand management. I have reviewed previous: notes, endoscope, CT and labs Labs: On 05/16/18, cholesterol was 505 CT: On 04/10/18, showed mild stringy infiltration of the fat surrounding the pancreatic tail with a very mild amount of fluid in the adjacent abdomen. In the appropriate clinical setting this can beseen with acute pancreatitis. Hepatic steatosis. 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 Endoscope: On 03/08/2018, showed mild erythema of stomach and duodenum I have reviewed current: labs I have reviewed nursing notes related to past medical history, social history, and review of systems and agree, unless otherwise noted. Consults: cardiology and hospitalist Medications Administered During the ED Stay from 06/29/2018 1909 to 06/30/2018 0038 Date/Time Order Dose Route Action 06/29/20182110 metoclopramide (REGLAN) 5 mg/mL injection 10 mg 10 mg IV Given 06/29/20182105 diphenhydrAMINE (BENADRYL) injection 25 mg 25 mg IV Given 06/29/20182116 pantoprazole (PROTONIX) injection 40 mg 40 mg IV Given 06/29/20182112 morphine 4 mg/mL injection 4 mg 4 mg IV Given 06/30/2018 0027 morphine 4 mg/mL injection 4 mg 4 mg IV Given . 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 See after visit summary for patient education on discharged patients. ED Disposition ED Disposition Condition User Date/Time Comment Admit Stable Eva Duran MD Sun Jun 29, 2018 11:47 PM ATTESTATION STATEMENTS This note has been prepared by Michael Astudillo acting as a scribe for Dr. Eva Duran on 06/29/2018 at11:53 PM. The scribe's documentation has been prepared under my direction and personally reviewed by me, MD Mary , in its entirety on 06/30/18 at 12:38 AM. I confirm that the note above accurately reflects all work, treatment, procedures, and medical decision making performed by me. CTOR MARKET RESEARCH documented in this encounter Miscellaneous Notes * Care Plan - Ceasar Louise RN - 06/30/2018 1:36 PM CST Discharge Planning ??? Identify discharge needs upon admission and through discharge Progressing Initial Discharge Planning Assessment completed. Introductory Care Management letter given. Care Management visited with patient, and discussed Care Management role and discharge planning. Confirmed PHI# with pt/family member prior to conversation. Prior to admission, patient's functional level independent. Prior to admission, patient resided at home with her and son. They live in a one story house with one step to enter/exit. Prior to admission, patient received assistance with nothing, and had no services in home. Durable medical equipment at home includes none. Patient has had a stay at an acute care hospital in the last 30 days. If patient will go to SNF [place], patient does not need a PASARR screening to be started (ie, prior psych admission or intensive services, MR/DD diagnosis prior to the age of 22). Readmission Risk (patient becomes high risk with a score of 8 or greater) 5 Total Score 5 Prior Hospitalizations Primary Emergency Contact: José Miguel Jones, PCP verified as Guerrero Middleton PA-C. Patient's insurance verified as Payor: [employer] / Plan: ALL SAVERS CHOICE / Product Type: Commercial / [facility] [address] [place] [address] Discussed discharge goals and possible discharge needs including discharge to home with spouse. Care Management contact information provided. Care Management will continue to follow and assist asneeded. Ceasar Louise RN, BSN [employer] [phone] CTOR MARKET RESEARCH * Care Plan - Justo Rizvi RN - 06/30/2018 6:18 AM CST Pt complaining of abdominal qasim nthat is minimally improved with PRN pain meds. No n/v. VSS. Will continue to monitor. [place] [facility]: Adult and Obstetrics Day 1 ??? Patient, family, or healthcare designee is participating in individual care plan process Met ??? Patient, family, or healthcare designee understands side effects of medications Met Discharge Planning ??? Identify discharge needs upon admission and through discharge Progressing Infection Risk/Actual ??? Infection Risk/Actual: Infection prevention, control, or resolution by discharge Progressing Pain, Potential/Actual ??? Verbalizes/displays acceptable comfort level or baseline comfort level Progressing Safety/Fall ??? Safety/Fall: Absence of fall, injury, harm during hospitalization Progressing CTOR MARKET RESEARCH * Care Plan - Justo Rizvi RN - 06/30/2018 2:14 AM CST Undress and Assess performed by: Justo OLGUINphotogrammetrist or upon transfer to: [facility] ~~~~~~~~~~~~~~~~~~~~~~~~~~~~ Is the patient a paraplegic/quadriplegic? no Does the patient have new purple/sissy/dark red over bony prominences? No Does the patient have an ostomy? no Is the length of stay >2 weeks? no ~If ANY answer 'yes'- please consult~ Patient does not have skin breakdown. Wound [...] removed from patient none Disposition of belongings/valuables: CTOR MARKET RESEARCH documented in this encounter Plan of Treatment Upcoming Encounters Date Type Department Care Team (Late st Contact Info) Description 09/14/2024 3:00 PM CDT Office Visit [facility] - [facility] [id number] [place] [address] Marlys Mayer MD [address] [place], [place] [id number] documented as of this encounter Procedures Procedure Name Priority Date/Time Associated Diagnosis Comments POC GLUCOSE Routine 07/03/2018 10:43 AM DIRECTOR MARKET RESEARCH TRIGLYCERIDE Routine 07/03/2018 3:32 AM DIRECTOR MARKET RESEARCH COMPREHENSIVE METABOLIC PANEL Routine 07/03/2018 3:32 AM DIRECTOR MARKET RESEARCH LIPASE Routine 07/02/2018 11:52 PM DIRECTOR MARKET RESEARCH POC GLUCOSE Routine 07/02/2018 9:53 PM DIRECTOR MARKET RESEARCH POC GLUCOSE Routine 07/02/2018 4:51 PM DIRECTOR MARKET RESEARCH POC GLUCOSE Routine 07/02/2018 1:02 PM DIRECTOR MARKET RESEARCH POC GLUCOSE Routine 07/02/2018 12:00 PM DIRECTOR MARKET RESEARCH POC GLUCOSE Routine 07/02/2018 11:02 AM DIRECTOR MARKET RESEARCH POC GLUCOSE Routine 07/02/2018 10:05 AM DIRECTOR MARKET RESEARCH POC GLUCOSE Routine 07/02/2018 8:58 AM DIRECTOR MARKET RESEARCH POC GLUCOSE Routine 07/02/2018 8:09 AM DIRECTOR MARKET RESEARCH POC GLUCOSE Routine 07/02/2018 6:58 AM DIRECTOR MARKET RESEARCH POC GLUCOSE Routine 07/02/2018 6:10 AM DIRECTOR MARKET RESEARCH CBC WITH DIFFERENTIAL Routine 07/02/2018 5:16 AM DIRECTOR MARKET RESEARCH TRIGLYCERIDE Routine 07/02/2018 5:16 AM DIRECTOR MARKET RESEARCH BASIC METABOLIC PANEL Routine 07/02/2018 5:16 AM DIRECTOR MARKET RESEARCH POC GLUCOSE Routine 07/02/2018 5:02 AM DIRECTOR MARKET RESEARCH POC GLUCOSE Routine 07/02/2018 4:03 AM DIRECTOR MARKET RESEARCH POC GLUCOSE Routine 07/02/2018 3:02 AM DIRECTOR MARKET RESEARCH POC GLUCOSE Routine 07/02/2018 2:07 AM DIRECTOR MARKET RESEARCH POC GLUCOSE Routine 07/02/2018 1:25 AM DIRECTOR MARKET RESEARCH POC GLUCOSE Routine 07/01/2018 11:59 PM DIRECTOR MARKET RESEARCH POC GLUCOSE Routine 07/01/2018 11:03 PM DIRECTOR MARKET RESEARCH POC GLUCOSE Routine 07/01/2018 10:04 PM DIRECTOR MARKET RESEARCH POC GLUCOSE Routine 07/01/2018 9:19 PM DIRECTOR MARKET RESEARCH POC GLUCOSE Routine 07/01/2018 8:02 PM DIRECTOR MARKET RESEARCH POC GLUCOSE Routine 07/01/2018 7:18 PM DIRECTOR MARKET RESEARCH POC GLUCOSE Routine 07/01/2018 6:28 PM DIRECTOR MARKET RESEARCH POC GLUCOSE Routine 07/01/2018 5:18 PM DIRECTOR MARKET RESEARCH POC GLUCOSE Routine 07/01/2018 4:11 PM DIRECTOR MARKET RESEARCH POC GLUCOSE Routine 07/01/2018 3:06 PM DIRECTOR MARKET RESEARCH POC GLUCOSE Routine 07/01/2018 2:04 PM DIRECTOR MARKET RESEARCH POC GLUCOSE Routine 07/01/2018 1:03 PM DIRECTOR MARKET RESEARCH POC GLUCOSE Routine 07/01/2018 12:14 PM DIRECTOR MARKET RESEARCH POC GLUCOSE Routine 07/01/2018 11:01 AM DIRECTOR MARKET RESEARCH POC GLUCOSE Routine 07/01/2018 9:20 AM DIRECTOR MARKET RESEARCH CBC WITH DIFFERENTIAL Routine 07/01/2018 3:08 AM DIRECTOR MARKET RESEARCH TRIGLYCERIDE Routine 07/01/2018 3:08 AM DIRECTOR MARKET RESEARCH BASIC METABOLIC PANEL Routine 07/01/2018 3:08 AM DIRECTOR MARKET RESEARCH POC GLUCOSE Routine 07/01/2018 1:41 AM DIRECTOR MARKET RESEARCH POC GLUCOSE Routine 06/30/2018 8:49 PM DIRECTOR MARKET RESEARCH POC GLUCOSE Routine 06/30/2018 5:00 PM DIRECTOR MARKET RESEARCH TRIGLYCERIDE Routine 06/30/2018 5:00 PM DIRECTOR MARKET RESEARCH POC GLUCOSE Routine 06/30/2018 1:15 PM DIRECTOR MARKET RESEARCH POC GLUCOSE Routine 06/30/2018 8:41 AM DIRECTOR MARKET RESEARCH CBC WITH DIFFERENTIAL Routine 06/30/2018 6:11 AM DIRECTOR MARKET RESEARCH TRIGLYCERIDE Routine 06/30/2018 6:11 AM DIRECTOR MARKET RESEARCH BASIC METABOLIC PANEL Routine 06/30/2018 6:11 AM DIRECTOR MARKET RESEARCH DRUG SCREEN, URINE Stat 06/29/2018 8: 24 PM DIRECTOR MARKET RESEARCH URINALYSIS W/REFLEX MICROSCOPIC Stat 06/29/2018 8:23 PM DIRECTOR MARKET RESEARCH CBC WITH DIFFERENTIAL Stat 06/29/2018 8:17 PM DIRECTOR MARKET RESEARCH PROTIME-INR Stat 06/29/2018 8:17 PM DIRECTOR MARKET RESEARCH C-REACTIVE PROTEIN Stat 06/29/2018 8: 17 PM DIRECTOR MARKET RESEARCH LIPASE Stat 06/29/2018 8:17 PM DIRECTOR MARKET RESEARCH HEMOGLOBIN A1C Stat 06/29/2018 8:17 PM DIRECTOR MARKET RESEARCH COMPREHENSIVE METABOLIC PANEL Stat 06/29/2018 8:17 PM DIRECTOR MARKET RESEARCH documented in this encounter Results * (ABNORMAL) POC GLUCOSE (07/03/2018 10:43 AM DIRECTOR MARKET RESEARCH) GLUCOSE POC 150(H) 74 - 99 mg/dL 07/03/2018 10:56 AM DIRECTOR MARKET RESEARCH [facility] MOTOR CARRIER INSPECTOR NAME POC RICKI EDUARDO 07/03/2018 10:56 AM DIRECTOR MARKET RESEARCH [facility] Whole blood specimen (specimen) 07/03/2018 10:43 AM DIRECTOR MARKET RESEARCH 07/03/2018 10:56 AM DIRECTOR MARKET RESEARCH Evan Hernandez MD POINT OF CARE TESTIN G [facility] CLIA# [id number] [address] [facility] [place] [address] * (ABNORMAL) TRIGLYCERIDE (07/03/2018 3:32 AM DIRECTOR MARKET RESEARCH) TRIGLYCERIDE 572(H) <150 mg/dL 07/03/2018 6:18 AM [facility] [employer] [facility] Blood Venipuncture / Unknown 07/03/2018 3:32 AM DIRECTOR MARKET RESEARCH 07/03/2018 5:12 AM DIRECTOR MARKET RESEARCH [facility] [employer] LABORATORY SERVICES - . [facility] - 07/03/2018 6:18 AM DIRECTOR MARKET RESEARCH TRIGLYCERIDES ? mg/dL Normal ?< 150 Borderline High ?150 - 199 High ? 200 - 499 Very High ? >= 500 Based on AHA/NCEP Guidelines. Evan Hernandez MD CHEMISTRY ORDERABLES [facility] [employer] [facility] CLIA# [id number] [address] [place] [address] * (ABNORMAL) COMPREHENSIVE METABOLIC PANEL (07/03/2018 3:32 AM DIRECTOR MARKET RESEARCH) SODIUM 138 136 - 145 mmol/L 07/03/2018 6:18 AM [facility] [employer] - . [place] POTASSIUM 4.2 3.5 - 5.0 mmol/L 07/03/2018 6:18 AM [facility] [employer] [facility] - [facility] CHLORIDE 103 98 - 107 mmol/L 07/03/2018 6:18 AM [facility] [employer] - [facility] CO2 25 22 - 29 mmol/L 07/03/2018 6:18 AM [facility] [employer] - . [facility] CALCIUM 8.5(L) 8.6 - 10.2 mg/dL 07/03/2018 6:18 AM [facility] [employer] - [facility] BUN 6 6 - 20 mg/dL 07/03/2018 6:18 AM [facility] [employer] - [facility] CREATININE 0.58 0.51 - 0.95 mg/dL 07/03/2018 6:18 AM [facility] [employer] - . [facility] GLUCOSE 174(H) 74 - 99 mg/dL 07/03/2018 6:18 AM [facility] [employer] [facility]. [facility] TOTAL PROTEIN 5.7(L) 6.7 - 8.6 g/dL 07/03/2018 6:18 AM [facility] [employer] [facility] ALBUMIN 3.6 3.5 - 5.2 g/dL 07/03/2018 6:18 AM [facility] [employer] [facility] BILIRUBIN TOTAL <0.2(L) 0.3 - 1.2 mg/dL 07/03/2018 6:18 AM [facility] [employer] [facility] ALKALINE PHOSPHATASE 51 35 - 104 U/L 07/03/2018 6:18 AM [facility] [employer] [facility] AST 11 <33 U/L 07/03/2018 6:18 AM [facility] [employer] [facility] ALT 9 <34 U/L 07/03/2018 6:18 AM [facility] [employer] [facility] GFR >60 >=60 mL/min/1.7 3 sq meter 07/03/2018 6:18 AM [facility] [employer] [facility] Comment: eGFR has not been validated for [...] GFR, >60 >=60 mL/min/1.7 3 sq meter 07/03/2018 6:18 AM [facility] [employer] [facility] ANION GAP 10 8 - 16 mmol/L 07/03/2018 6:18 AM [facility] [employer] [facility] Blood Venipuncture / Unknown 07/03/2018 3:32 AM DIRECTOR MARKET RESEARCH 07/03/2018 5:12 AM [facility] [employer] [facility] - 07/03/2018 6:18 AM [facility] Samples containing indocyanine green cause interferences on Total and/or Direct Bilirubin and must not be measured. Evan Hernandez MD CHEMISTRY ORDERABLES [facility] [employer] [facility]# [id number] [address] [place] [address] * LIPASE (07/02/2018 11:52 PM DIRECTOR MARKET RESEARCH) LIPASE 18 13 - 60 U/L 07/03/2018 12:30 AM DIRECTOR MARKET RESEARCH [facility] Blood Venipuncture / Unknown 07/02/2018 11:52 PM DIRECTOR MARKET RESEARCH 07/02/2018 11:58 PM DIRECTOR MARKET RESEARCH Evan Hernandez MD CHEMISTRY ORDERABLES Performing Organization Address [facility]/ZIP Co de Phone Number [facility] CLIA# [id number] [address] [place] [address] * (ABNORMAL) POC GLUCOSE (07/02/2018 9:53 PM DIRECTOR MARKET RESEARCH) GLUCOSE POC 211(H) 74 - 99 mg/dL 07/02/2018 10:12 PM [facility] MOTOR CARRIER INSPECTOR NAME POC YAMIL MILAN 07/02/2018 10:12 PM DIRECTOR MARKET RESEARCH [facility] Whole blood specimen (specimen) 07/02/2018 9:53 PM DIRECTOR MARKET RESEARCH 07/02/2018 10:12 PM DIRECTOR MARKET RESEARCH Evan Hernandez MD POINT OF CARE TESTIN G Performing Organization Address [facility] Co de Phone Number [facility]# [id number] [address] [place] [address] * (ABNORMAL) POC GLUCOSE (07/02/2018 4:51 PM DIRECTOR MARKET RESEARCH) GLUCOSE POC 193(H) 74 - 99 mg/dL 07/02/2018 5:08 PM DIRECTOR MARKET RESEARCH [facility] MOTOR CARRIER INSPECTOR NAME POC PELON (park[employer]) LUISA 07/02/2018 5:08 PM DIRECTOR MARKET RESEARCH [facility] Whole blood specimen (specimen) 07/02/2018 4:51 PM DIRECTOR MARKET RESEARCH 07/02/2018 5:08 PM DIRECTOR MARKET RESEARCH Evan Hernandez MD POINT OF CARE TESTJERONIMO G Performing Organization Address [facility]/ZIP Co de Phone Number [facility]# [id number] [address] [place] [address] * (ABNORMAL) POC GLUCOSE (07/02/2018 1:02 PM DIRECTOR MARKET RESEARCH) GLUCOSE POC 183(H) 74 - 99 mg/dL 07/02/2018 1:18 PM DIRECTOR MARKET RESEARCH [facility] MOTOR CARRIER INSPECTOR NAME POC EDA ESPARZA 07/02/2018 1:18 PM DIRECTOR MARKET RESEARCH [facility] Whole blood specimen (specimen) 07/02/2018 1:02 PM DIRECTOR MARKET RESEARCH 07/02/2018 1:18 PM DIRECTOR MARKET RESEARCH Evan Hernandez MD POINT OF CARE TESTJERONIMO Serrano Performing Organization Address [facility] Co de Phone Number [facility] [employer] [facility]# [id number] [address] [place] [address] * (ABNORMAL) POC GLUCOSE (07/02/2018 12:00 PM DIRECTOR MARKET RESEARCH) GLUCOSE POC 198(H) 74 - 99 mg/dL 07/02/2018 12:13 PM DIRECTOR MARKET RESEARCH [facility] MOTOR CARRIER INSPECTOR NAME POC TAVARES GUZMAN 07/02/2018 12:13 PM DIRECTOR MARKET RESEARCH [facility] Whole blood specimen (specimen) 07/02/2018 12:00 PM DIRECTOR MARKET RESEARCH 07/02/2018 12:12 PM DIRECTOR MARKET RESEARCH Evan Hernandez MD POINT OF CARE TESTJERONIMO G Performing Organization Address [facility]/ZIP Co de Phone Number [facility] [employer] [facility]# [id number] [address] [place] [address] * (ABNORMAL) POC GLUCOSE (07/02/2018 11:02 AM DIRECTOR MARKET RESEARCH) GLUCOSE POC 153(H) 74 - 99 mg/dL 07/02/2018 11:16 AM DIRECTOR MARKET RESEARCH [facility] MOTOR CARRIER INSPECTOR NAME POC TAVARES GUZMAN 07/02/2018 11:16 AM DIRECTOR MARKET RESEARCH [facility] Whole blood specimen (specimen) 07/02/2018 11:02 AM DIRECTOR MARKET RESEARCH 07/02/2018 11:16 AM DIRECTOR MARKET RESEARCH Evan Hernandez MD POINT OF CARE FLY Serrano Performing Organization Address [facility]/ZIP Co de Phone Number [facility] CLMI# [id number] [address] [place] [address] * (ABNORMAL) POC GLUCOSE (07/02/2018 10:05 AM DIRECTOR MARKET RESEARCH) GLUCOSE POC 133(H) 74 - 99 mg/dL 07/02/2018 10:45 AM DIRECTOR MARKET RESEARCH [facility] [employer] [facility] MOTOR CARRIER INSPECTOR NAME POC EDA ESPARZA 07/02/2018 10:45 AM DIRECTOR MARKET RESEARCH [facility] Whole blood specimen (specimen) 07/02/2018 10:05 AM DIRECTOR MARKET RESEARCH 07/02/2018 10:45 AM DIRECTOR MARKET RESEARCH Evan Hernandez MD POINT OF CARE FLY Serrano Performing Organization Address [facility] Co de Phone Number [facility] [employer] [facility] CLIA# [id number] [address] [place] [address] * (ABNORMAL) POC GLUCOSE (07/02/2018 8:58 AM DIRECTOR MARKET RESEARCH) GLUCOSE POC 112(H) 74 - 99 mg/dL 07/02/2018 10:44 AM DIRECTOR MARKET RESEARCH [facility] MOTOR CARRIER INSPECTOR NAME POC EDA ESPARZA 07/02/2018 10:44 AM DIRECTOR MARKET RESEARCH [facility] Whole blood specimen (specimen) 07/02/2018 8:58 AM DIRECTOR MARKET RESEARCH 07/02/2018 10:44 AM DIRECTOR MARKET RESEARCH Evan Hernandez MD POINT OF CARE FLY Serrano Performing Organization Address City/[facility]/ZIP Co de Phone Number [facility] [employer] [facility] CLIA# [id number] [address] [place] [address] * POC GLUCOSE (07/02/2018 8:09 AM DIRECTOR MARKET RESEARCH) GLUCOSE POC 90 74 - 99 mg/dL 07/02/2018 10:42 AM DIRECTOR MARKET RESEARCH [facility] MOTOR CARRIER INSPECTOR NAME POC ROSALVA BROWN 07/02/2018 10:42 AM DIRECTOR MARKET RESEARCH [facility] Whole blood specimen (specimen) 07/02/2018 8:09 AM DIRECTOR MARKET RESEARCH 07/02/2018 10:42 AM DIRECTOR MARKET RESEARCH Evan Hernandez MD POINT OF CARE FLY Serrano Performing Organization Address [facility]/ZIP Co de Phone Number [facility] [employer] [facility] CLIA# [id number] [address] [place] [address] * (ABNORMAL) POC GLUCOSE (07/02/2018 6:58 AM DIRECTOR MARKET RESEARCH) GLUCOSE POC 106(H) 74 - 99 mg/dL 07/02/2018 10:40 AM DIRECTOR MARKET RESEARCH [facility] MOTOR CARRIER INSPECTOR NAME POC YAMIL MILAN 07/02/2018 10:40 AM DIRECTOR MARKET RESEARCH [facility] Whole blood specimen (specimen) 07/02/2018 6:58 AM DIRECTOR MARKET RESEARCH 07/02/2018 10:40 AM DIRECTOR MARKET RESEARCH Evan Hernandez MD POINT OF CARE TESTJERONIMO Serrano Performing Organization Address City/[facility]/ZIP Co de Phone Number [facility] [employer] [facility] CLIA# [id number] [address] [place] [address] * (ABNORMAL) POC GLUCOSE (07/02/2018 6:10 AM DIRECTOR MARKET RESEARCH) GLUCOSE POC 117(H) 74 - 99 mg/dL 07/02/2018 6:22 AM DIRECTOR MARKET RESEARCH [facility] LABORATORY [facility] MOTOR CARRIER INSPECTOR NAME POC KENIA QUIROZ 07/02/2018 6:22 AM [facility] [employer] [facility] Whole blood specimen (specimen) 07/02/2018 6:10 AM DIRECTOR MARKET RESEARCH 07/02/2018 6:22 AM DIRECTOR MARKET RESEARCH Evan Hernandez MD POINT OF CARE TESTIN G Performing Organization Address [facility] de Phone Number [facility]# [id number] [address] [place] [place] [address] * (ABNORMAL) TRIGLYCERIDE (07/02/2018 5:16 AM DIRECTOR MARKET RESEARCH) TRIGLYCERIDE 933(H) <150 mg/dL 07/02/2018 6:46 AM [facility] [employer] [facility] Blood Venipuncture / Unknown 07/02/2018 5:16 AM DIRECTOR MARKET RESEARCH 07/02/2018 5:23 AM DIRECTOR MARKET RESEARCH Narrative [facility] [employer] [facility] - 07/02/2018 6:46 AM DIRECTOR MARKET RESEARCH TRIGLYCERIDES ? mg/dL Normal ?< 150 Borderline High ?150 - 199 High ? 200 - 499 Very High ? >= 500 Based on AHA/NCEP Guidelines. Evan Hernandez MD CHEMISTRY ORDERABLES Performing Organization Address [facility] Phone Number [facility] [employer] [facility]# [id number] [address] [place] [address] * (ABNORMAL) BASIC METABOLIC PANEL (07/02/2018 5:16 AM DIRECTOR MARKET RESEARCH) Pathologist [facility] SODIUM 139 136 - 145 mmol/L 07/02/2018 6:20 AM [facility] [employer] [facility] POTASSIUM 4.1 3.5 - 5.0 mmol/L 07/02/2018 6:20 AM [facility] [employer] [facility] Comment: Slightly hemolyzed. Result may be falsely elevated. CHLORIDE 105 98 - 107 mmol/L 07/02/2018 6:20 AM [facility] [employer] [facility] CO2 24 22 - 29 mmol/L 07/02/2018 6:20 AM [facility] [employer] [facility] CALCIUM 8.6 8.6 - 10.2 mg/dL 07/02/2018 6:20 AM [facility] [employer] [facility] BUN 7 6 - 20 mg/dL 07/02/2018 6:20 AM [facility] [employer] [facility] CREATININE 0.59 0.51 - 0.95 mg/dL 07/02/2018 6:20 AM [facility] [employer] [facility] GLUCOSE 128(H) 74 - 99 mg/dL 07/02/2018 6:20 AM [facility] [employer] [facility] GFR >60 >=60 mL/min/1.7 3 sq meter 07/02/2018 6:20 AM [facility] [employer] [facility] Comment: eGFR has not been validated for [...] GFR, >60 >=60 mL/min/1.7 3 sq meter 07/02/2018 6:20 AM [facility] [employer] [facility] ANION GAP 10 8 - 16 mmol/L 07/02/2018 6:20 AM [facility] [employer] [facility] Blood Venipuncture / Unknown 07/02/2018 5:16 AM DIRECTOR MARKET RESEARCH 07/02/2018 5:23 AM DIRECTOR MARKET RESEARCH Niki Davenport MD CHEMISTRY ORDERABLES [facility] [employer] [facility]# [id number] [address] [facility] [place] [place] [address] * (ABNORMAL) CBC WITH DIFFERENTIAL (07/02/2018 5:16 AM DIRECTOR MARKET RESEARCH) Pathologist [facility] WBC 5.9 4.0 - 9.8 K/uL 07/02/2018 5:38 AM DIRECTOR MARKET RESEARCH [employer] LABORATORY SERVICES - [facility] RBC 3.58(L) 3.90 - 4.90 M/uL 07/02/2018 5:38 AM [facility] [employer] LABORATORY SERVICES - [facility] HEMOGLOBIN 10.8(L) 11.8 - 14.8 g/dL 07/02/2018 5:38 AM [employer] LABORATORY SERVICES - [facility] HEMATOCRIT 33.2(L) 35.5 - 44.0 % 07/02/2018 5:38 AM [employer] LABORATORY SERVICES - [facility] MCV 92.7 82.0 - 99.0 fL 07/02/2018 5:38 AM [employer] LABORATORY SERVICES - [facility] MCH 30.2 27.2 - 32.6 pg 07/02/2018 5:38 AM [employer] LABORATORY SERVICES [facility] MCHC 32.5 31.5 - 35.5 g/dL 07/02/2018 5:38 AM [employer] LABORATORY SERVICES [facility] RDW 13.9 11.5 - 14.5 % 07/02/2018 5:38 AM [employer] LABORATORY SERVICES [facility] RDW-STDEV 47.8 37.1 - 48.7 fL 07/02/2018 5:38 AM [employer] LABORATORY [facility] PLATELETS 201 140 - 350 K/uL 07/02/2018 5:38 AM [employer] [facility] MPV 9.1(L) 9.3 - 12.4 fL 07/02/2018 5:38 AM [employer] LABORATORY SERVICES - [facility] NEUTROPHILS 56 % 07/02/2018 5:38 AM [employer] LABORATORY SERVICES - . [facility] LYMPHOCYTES 36 % 07/02/2018 5:38 AM [employer] LABORATORY SERVICES - . [facility] MONOCYTES 7 % 07/02/2018 5:38 AM [employer] LABORATORY SERVICES - . [facility] EOSINOPHILS 1 % 07/02/2018 5:38 AM [employer] LABORATORY SERVICES - . [facility] BASOPHILS 0 % 07/02/2018 5:38 AM [employer] LABORATORY SERVICES - . [facility] IMMATURE GRANULOCYTES 1 % 07/02/2018 5:38 AM [employer] LABORATORY SERVICES - [facility] Comment:IG (Immature Granulo cyte) count includes Metamyelocytes, Myelocytes, and Promyelocytes NEUTROPHIL ABSOLUTE 3.27 1.90 - 7.00 K/uL 07/02/2018 5:38 AM [facility] LABORATORY SERVICES - [facility] LYMPHOCYTE ABSOLUTE 2.09 0.70 - 4.50 K/uL 07/02/2018 5:38 AM [facility] LABORATORY SERVICES - . [facility] MONOCYTE ABSOLUTE 0.39 0.10 - 1.30 K/uL 07/02/2018 5:38 AM [facility] LABORATORY SERVICES - . [facility] EOSINOPHIL ABSOLUTE 0.05 0.00 - 0.70 K/uL 07/02/2018 5:38 AM [facility] LABORATORY SERVICES - . [facility] BASOPHILS ABSOLUTE 0.02 0.00 - 0.20 K/uL 07/02/2018 5:38 AM [facility] LABORATORY SERVICES - . [facility] IMMATURE GRANULOCYTES ABSOLUTE 0.03 0.00 - 0.03 K/uL 07/02/2018 5:38 AM [facility] LABORATORY SERVICES [facility] Blood Venipuncture / Unknown 07/02/2018 5:16 AM DIRECTOR MARKET RESEARCH 07/02/2018 5:23 AM DIRECTOR MARKET RESEARCH Niki Davenport MD HEMATOLOGY ORDERABLE S [facility] [employer] [facility] CLIA# [id number] [address] [facility] [place] [place] [address] * (ABNORMAL) POC GLUCOSE (07/02/2018 5:02 AM DIRECTOR MARKET RESEARCH) GLUCOSE POC 125(H) 74 - 99 mg/dL 07/02/2018 5:14 AM [facility] LABORATORY SERVICES [facility] MOTOR CARRIER INSPECTOR NAME POC KENIA QUIROZ 07/02/2018 5:14 AM [facility] [employer] LABORATORY [facility] Whole blood specimen (specimen) 07/02/2018 5:02 AM DIRECTOR MARKET RESEARCH 07/02/2018 5:14 AM DIRECTOR MARKET RESEARCH Evan Hernandez MD POINT OF CARE TESTIN G [facility] [employer] [facility] CLIA# [id number] [address] [place] [address] * (ABNORMAL) POC GLUCOSE (07/02/2018 4:03 AM DIRECTOR MARKET RESEARCH) GLUCOSE POC 175(H) 74 - 99 mg/dL 07/02/2018 4:15 AM DIRECTOR MARKET RESEARCH [facility] SERVICES [facility] MOTOR CARRIER INSPECTOR NAME KENIA LYON 07/02/2018 4:15 AM DIRECTOR MARKET RESEARCH [employer] LABORATORY SERVICES [facility] Whole blood specimen (specimen) 07/02/2018 4:03 AM DIRECTOR MARKET RESEARCH 07/02/2018 4:15 AM DIRECTOR MARKET RESEARCH Evan Hernandez MD POINT OF CARE TESTJERONIMO Serrano [facility] LABORATORY [facility] CLIA# [id number] [address] [place] [address] * (ABNORMAL) POC GLUCOSE (07/02/2018 3:02 AM DIRECTOR MARKET RESEARCH) GLUCOSE POC 167(H) 74 - 99 mg/dL 07/02/2018 3:22 AM DIRECTOR MARKET RESEARCH [facility] LABORATORY SERVICES [facility] MOTOR CARRIER INSPECTOR NAME KENIA LYON 07/02/2018 3:22 AM DIRECTOR MARKET RESEARCH [facility] LAB[facility] SERVICES [facility] Whole blood specimen (specimen) 07/02/2018 3:02 AM DIRECTOR MARKET RESEARCH 07/02/2018 3:22 AM DIRECTOR MARKET RESEARCH Evan Hernandez MD POINT OF CARE TESTJERONIMO Serrano [facility] [employer] [facility] CLIA# [id number] [address] [place] [address] * (ABNORMAL) POC GLUCOSE (07/02/2018 2:07 AM DIRECTOR MARKET RESEARCH) GLUCOSE POC 151(H) 74 - 99 mg/dL 07/02/2018 2:20 AM DIRECTOR MARKET RESEARCH [employer] LABORATORY SERVICES [facility] MOTOR CARRIER INSPECTOR NAME KENIA LYON 07/02/2018 2:20 AM DIRECTOR MARKET RESEARCH [facility] Whole blood specimen (specimen) 07/02/2018 2:07 AM DIRECTOR MARKET RESEARCH 07/02/2018 2:19 AM DIRECTOR MARKET RESEARCH Evan Hernandez MD POINT OF CARE TESTJERONIMO Serrano [facility] LABORATORY [facility] CLIA# [id number] [address] [place] [address] * (ABNORMAL) POC GLUCOSE (07/02/2018 1:25 AM DIRECTOR MARKET RESEARCH) GLUCOSE POC 169(H) 74 - 99 mg/dL 07/02/2018 1:38 AM DIRECTOR MARKET RESEARCH [facility] LABORATORY SERVICES [facility] MOTOR CARRIER INSPECTOR NAME POC YAMIL MILAN 07/02/2018 1:38 AM DIRECTOR MARKET RESEARCH [facility] Whole blood specimen (specimen) 07/02/2018 1:25 AM DIRECTOR MARKET RESEARCH 07/02/2018 1:38 AM DIRECTOR MARKET RESEARCH Evan Hernandez MD POINT OF CARE FLY Serrano Performing Organization Address [facility]/ZIP Co de Phone Number [facility] [employer] [facility] CLIA# [id number] [address] [place] [address] * (ABNORMAL) POC GLUCOSE (07/01/2018 11:59 PM DIRECTOR MARKET RESEARCH) GLUCOSE POC 177(H) 74 - 99 mg/dL 07/02/2018 12:11 AM DIRECTOR MARKET RESEARCH [facility] LABORATORY SERVICES [facility] MOTOR CARRIER INSPECTOR NAME POC KENIA QUIROZ 07/02/2018 12:11 AM DIRECTOR MARKET RESEARCH [employer] LABORATORY SERVICES [facility] Whole blood specimen (specimen) 07/01/2018 11:59 PM DIRECTOR MARKET RESEARCH 07/02/2018 12:11 AM DIRECTOR MARKET RESEARCH Evan Hernandez MD POINT OF CARE TESTJERONIMO Serrano Performing Organization Address City/[facility]/ZIP Co de Phone Number [facility] LABORATORY [facility] CLIA# [id number] [address] [place] [address] * (ABNORMAL) POC GLUCOSE (07/01/2018 11:03 PM DIRECTOR MARKET RESEARCH) GLUCOSE POC 180(H) 74 - 99 mg/dL 07/01/2018 11:18 PM DIRECTOR MARKET RESEARCH [facility] LABORATORY [facility] MOTOR CARRIER INSPECTOR NAME KENIA LYON 07/01/2018 11:18 PM DIRECTOR MARKET RESEARCH [facility] LABORATORY SERVICES [facility] Whole blood specimen (specimen) 07/01/2018 11:03 PM DIRECTOR MARKET RESEARCH 07/01/2018 11:18 PM DIRECTOR MARKET RESEARCH Evan Hernandez MD POINT OF CARE TESTJERONIMO G Performing Organization Address City/[facility]/ZIP Co de Phone Number [facility]# [id number] [address] [place] [address] * (ABNORMAL) POC GLUCOSE (07/01/2018 10:04 PM DIRECTOR MARKET RESEARCH) GLUCOSE POC 158(H) 74 - 99 mg/dL 07/01/2018 10:16 PM DIRECTOR MARKET RESEARCH [facility] LABORATORY [facility] MOTOR CARRIER INSPECTOR NAME KENIA LYON 07/01/2018 10:16 PM DIRECTOR MARKET RESEARCH [facility] LABORATORY [facility] Whole blood specimen (specimen) 07/01/2018 10:04 PM DIRECTOR MARKET RESEARCH 07/01/2018 10:16 PM DIRECTOR MARKET RESEARCH Evan Hernandez MD POINT OF CARE TESTJERONIMO G [facility] CLIA# [id number] [address] [place] [address] * (ABNORMAL) POC GLUCOSE (07/01/2018 9:19 PM DIRECTOR MARKET RESEARCH) GLUCOSE POC 171(H) 74 - 99 mg/dL 07/01/2018 9:31 PM DIRECTOR MARKET RESEARCH [facility] LABORATORY [facility] MOTOR CARRIER INSPECTOR NAME KENIA LYON 07/01/2018 9:31 PM DIRECTOR MARKET RESEARCH [facility] LABORATORY SERVICES [facility] Whole blood specimen (specimen) 07/01/2018 9:19 PM DIRECTOR MARKET RESEARCH 07/01/2018 9:31 PM DIRECTOR MARKET RESEARCH Evan Hernandez MD POINT OF CARE FLY Serrano Performing Organization Address City/[facility]/ZIP Co de Phone Number [facility] LABORATORY [facility] CLIA# [id number] [address] [place] [address] * (ABNORMAL) POC GLUCOSE (07/01/2018 8:02 PM DIRECTOR MARKET RESEARCH) GLUCOSE POC 135(H) 74 - 99 mg/dL 07/01/2018 8:14 PM DIRECTOR MARKET RESEARCH [facility] LABORATORY [facility] MOTOR CARRIER INSPECTOR NAME KENIA LYON 07/01/2018 8:14 PM DIRECTOR MARKET RESEARCH [facility] LABORATORY SERVICES [facility] Whole blood specimen (specimen) 07/01/2018 8:02 PM DIRECTOR MARKET RESEARCH 07/01/2018 8:14 PM DIRECTOR MARKET RESEARCH Evan Hernandez MD POINT OF CARE FLY Serrano Performing Organization Address [facility] Co de Phone Number [facility] [employer] [facility] CLIA# [id number] [address] [place] [address] * (ABNORMAL) POC GLUCOSE (07/01/2018 7:18 PM DIRECTOR MARKET RESEARCH) GLUCOSE POC 119(H) 74 - 99 mg/dL 07/01/2018 7:30 PM DIRECTOR MARKET RESEARCH [facility] LABORATORY [facility] MOTOR CARRIER INSPECTOR NAME KENIA LYON 07/01/2018 7:30 PM DIRECTOR MARKET RESEARCH [facility] LABORATORY SERVICES [facility] Whole blood specimen (specimen) 07/01/2018 7:18 PM DIRECTOR MARKET RESEARCH 07/01/2018 7:30 PM DIRECTOR MARKET RESEARCH Evan Hernandez MD POINT OF CARE TESTJERONIMO Serrano Performing Organization Address [facility]/ZIP Co de Phone Number [facility] LABORATORY [facility] CLIA# [id number] [address] [place] [address] * (ABNORMAL) POC GLUCOSE (07/01/2018 6:28 PM DIRECTOR MARKET RESEARCH) GLUCOSE POC 125(H) 74 - 99 mg/dL 07/01/2018 6:41 PM DIRECTOR MARKET RESEARCH [facility] LABORATORY [facility] MOTOR CARRIER INSPECTOR NAME YULIANA TRENT 07/01/2018 6:41 PM DIRECTOR MARKET RESEARCH [facility] LABORATORY [facility] Whole blood specimen (specimen) 07/01/2018 6:28 PM DIRECTOR MARKET RESEARCH 07/01/2018 6:41 PM DIRECTOR MARKET RESEARCH Evan Hernandez MD POINT OF CARE TESTIN G Performing Organization Address [facility]/ZIP Co de Phone Number [facility] CLIA# [id number] [address] [place] [address] * (ABNORMAL) POC GLUCOSE (07/01/2018 5:18 PM DIRECTOR MARKET RESEARCH) GLUCOSE POC 142(H) 74 - 99 mg/dL 07/02/2018 10:34 AM DIRECTOR MARKET RESEARCH [facility] LABORATORY [facility] MOTOR CARRIER INSPECTOR NAME YULIANA TRENT 07/02/2018 10:34 AM DIRECTOR MARKET RESEARCH [facility] LABORATORY [facility] Whole blood specimen (specimen) 07/01/2018 5:18 PM DIRECTOR MARKET RESEARCH 07/02/2018 10:34 AM DIRECTOR MARKET RESEARCH Evan Hernandez MD POINT OF CARE TESTIN G Performing Organization Address City/[facility]/ZIP Co de Phone Number [facility] CLIA# [id number] [address] [place] [address] * (ABNORMAL) POC GLUCOSE (07/01/2018 4:11 PM DIRECTOR MARKET RESEARCH) GLUCOSE POC 141(H) 74 - 99 mg/dL 07/01/2018 4:24 PM DIRECTOR MARKET RESEARCH [facility] LABORATORY [facility] MOTOR CARRIER INSPECTOR NAME YULIANA TERNT 07/01/2018 4:24 PM DIRECTOR MARKET RESEARCH [facility] LABORATORY [facility] Whole blood specimen (specimen) 07/01/2018 4:11 PM DIRECTOR MARKET RESEARCH 07/01/2018 4:24 PM DIRECTOR MARKET RESEARCH Evan Hernandez MD POINT OF CARE TESTIN G [facility] [employer] [facility]# [id number] [address] [place] [address] * (ABNORMAL) POC GLUCOSE (07/01/2018 3:06 PM DIRECTOR MARKET RESEARCH) GLUCOSE POC 134(H) 74 - 99 mg/dL 07/01/2018 3:23 PM DIRECTOR MARKET RESEARCH [facility] LABORATORY [facility] MOTOR CARRIER INSPECTOR NAME YULIANA TRENT 07/01/2018 3:23 PM DIRECTOR MARKET RESEARCH [facility] LABORATORY [facility] Whole blood specimen (specimen) 07/01/2018 3:06 PM DIRECTOR MARKET RESEARCH 07/01/2018 3:23 PM DIRECTOR MARKET RESEARCH Evan Hernandez MD POINT OF CARE TESTJERONIMO Maggie Performing Organization Address [facility] Co de Phone Number [facility] [employer] [facility]# [id number] [address] [place] [address] * (ABNORMAL) POC GLUCOSE (07/01/2018 2:04 PM DIRECTOR MARKET RESEARCH) GLUCOSE POC 167(H) 74 - 99 mg/dL 07/01/2018 2:51 PM DIRECTOR MARKET RESEARCH [facility] LABORATORY [facility] MOTOR CARRIER INSPECTOR NAME POC ELIGIO CALLEJAS 07/01/2018 2:51 PM DIRECTOR MARKET RESEARCH [facility] LABORATORY [facility] Whole blood specimen (specimen) 07/01/2018 2:04 PM DIRECTOR MARKET RESEARCH 07/01/2018 2:51 PM DIRECTOR MARKET RESEARCH Evan Hernandez MD POINT OF CARE TESTJERONIMO G Performing Organization Address City/[facility]/ZIP Co de Phone Number [facility] [employer] [facility]# [id number] [address] [place] [address] * (ABNORMAL) POC GLUCOSE (07/01/2018 1:03 PM DIRECTOR MARKET RESEARCH) GLUCOSE POC 236(H) 74 - 99 mg/dL 07/01/2018 1:18 PM DIRECTOR MARKET RESEARCH [facility] LABORATORY [facility] MOTOR CARRIER INSPECTOR NAME POC YULIANA GAFFNEY 07/01/2018 1:18 PM DIRECTOR MARKET RESEARCH [facility] [employer] [facility] Whole blood specimen (specimen) 07/01/2018 1:03 PM DIRECTOR MARKET RESEARCH 07/01/2018 1:18 PM DIRECTOR MARKET RESEARCH Evan Hernandez MD POINT OF CARE FLY Serrano Performing Organization Address [facility] Co de Phone Number [facility] [employer] [facility] CLMI# [id number] [address] [place] [address] * (ABNORMAL) POC GLUCOSE (07/01/2018 12:14 PM DIRECTOR MARKET RESEARCH) GLUCOSE POC 151(H) 74 - 99 mg/dL 07/01/2018 12:28 PM DIRECTOR MARKET RESEARCH [facility] [employer] [facility] MOTOR CARRIER INSPECTOR NAME ELIGIO ANGEL 07/01/2018 12:28 PM DIRECTOR MARKET RESEARCH [facility] Whole blood specimen (specimen) 07/01/2018 12:14 PM DIRECTOR MARKET RESEARCH 07/01/2018 12:28 PM DIRECTOR MARKET RESEARCH Evan Hernandez MD POINT OF CARE FLY Serrano Performing Organization Address [facility] Co de Phone Number [facility] [employer] [facility]# [id number] [address] [place] [address] * (ABNORMAL) POC GLUCOSE (07/01/2018 11:01 AM DIRECTOR MARKET RESEARCH) GLUCOSE POC 158(H) 74 - 99 mg/dL 07/01/2018 11:25 AM DIRECTOR MARKET RESEARCH [facility] LABORATORY [facility] MOTOR CARRIER INSPECTOR NAME YULIANA TRENT 07/01/2018 11:25 AM DIRECTOR MARKET RESEARCH [facility] LABORAT[facility] Whole blood specimen (specimen) 07/01/2018 11:01 AM DIRECTOR MARKET RESEARCH 07/01/2018 11:25 AM DIRECTOR MARKET RESEARCH Evan Hernandez MD POINT OF CARE FLY Serrano Performing Organization Address [facility] Co de Phone Number [facility] [employer] [facility]# [id number] [address] [place] [address] * (ABNORMAL) POC GLUCOSE (07/01/2018 9:20 AM DIRECTOR MARKET RESEARCH) GLUCOSE POC 121(H) 74 - 99 mg/dL 07/01/2018 9:35 AM [facility] [employer] [facility] MOTOR CARRIER INSPECTOR NAME POC ELIGIO CALLEJAS 07/01/2018 9:35 AM [facility] [employer] [facility] Whole blood specimen (specimen) 07/01/2018 9:20 AM [employer] 07/01/2018 9:35 AM DIRECTOR MARKET RESEARCH Evan Hernandez MD POINT OF CARE FLY Maggie Performing Organization Address [facility] de Phone Number [facility] [employer] [facility]# [phone] [address] [place] [address] * (ABNORMAL) TRIGLYCERIDE (07/01/2018 3:08 AM DIRECTOR MARKET RESEARCH) TRIGLYCERIDE 790(H) <150 mg/dL 07/01/2018 3:37 AM [facility] [employer] [facility] Blood Venipuncture / Unknown 07/01/2018 3:08 AM DIRECT[employer] MARK[employer]EARCH 07/01/2018 3:11 AM DIRECTOR MARKET RESEARCH Narrative [facility] [employer] [facility] - 07/01/2018 3:37 AM DIRECTOR MARKET RESEARCH TRIGLYCERIDES ? mg/dL Normal ?< 150 Borderline High ?150 - 199 High ? 200 - 499 Very High ? >= 500 Based on AHA/NCEP Guidelines. Niki Davenport MD CHEMISTRY ORDERABLES Performing Organization Address [facility] [facility] Co de Phone Number [facility] [employer] [facility]# [id number] [address] [place] [address] * (ABNORMAL) BASIC METABOLIC PANEL (07/01/2018 3:08 AM DIRECTOR MARKET RESEARCH) SODIUM 134(L) 136 - 145 mmol/L 07/01/2018 3:37 AM DIRECTOR MARKET RESEARCH [employer] LABORATORY SERVICES - . [facility] POTASSIUM 3.6 3.5 - 5.0 mmol/L 07/01/2018 3:37 AM DIRECTOR MARKET RESEARCH [employer] LABORATORY SERVICES - [facility] CHLORIDE 100 98 - 107 mmol/L 07/01/2018 3:37 AM [employer] LABORATORY SERVICES - [facility] CO2 25 22 - 29 mmol/L 07/01/2018 3:37 AM [employer] LABORATORY SERVICES - . [facility] CALCIUM 8.0(L) 8.6 - 10.2 mg/dL 07/01/2018 3:37 AM DIRECTOR MARKET RESEARCH [employer] LABORATORY SERVICES - . [facility] BUN 9 6 - 20 mg/dL 07/01/2018 3:37 AM [employer] LABORATORY SERVICES - . [facility] CREATININE 0.58 0.51 - 0.95 mg/dL 07/01/2018 3:37 AM [employer] LABORATORY SERVICES - . [facility] GLUCOSE 119(H) 74 - 99 mg/dL 07/01/2018 3:37 AM [employer] LABORATORY SERVICES - [facility] GFR >60 >=60 mL/min/1.7 3 sq meter 07/01/2018 3:37 AM [facility] [facility] SERVICES - [facility] Comment: eGFR has not [...] GFR, >60 >=60 mL/min/1.7 3 sq meter 07/01/2018 3:37 AM [employer] LABORATORY SERVICES - [facility] ANION GAP 9 8 - 16 mmol/L 07/01/2018 3:37 AM [employer] LABORATORY SERVICES [facility] Blood Venipuncture / Unknown 07/01/2018 3:08 AM DIRECTOR MARKET RESEARCH 07/01/2018 3:11 AM DIRECTOR MARKET RESEARCH Niki Davenport MD CHEMISTRY ORDERABLES [facility] LABORATORY SERVICES - [facility]# [id number] [address] [place] [address] * (ABNORMAL) CBC WITH DIFFERENTIAL (07/01/2018 3:08 AM DIRECTOR MARKET RESEARCH) WBC 7.0 4.0 - 9.8 K/uL 07/01/2018 3:15 AM [facility] [employer] LABORATORY SERVICES - . [facility] RBC 3.56(L) 3.90 - 4.90 M/uL 07/01/2018 3:15 AM [facility] LABORATORY SERVICES - . [facility] HEMOGLOBIN 10.7(L) 11.8 - 14.8 g/dL 07/01/2018 3:15 AM [facility] [employer] SERVICES - . [facility] HEMATOCRIT 32.8(L) 35.5 - 44.0 % 07/01/2018 3:15 AM [facility] [employer] LABORATORY SERVICES - . [facility] MCV 92.1 82.0 - 99.0 fL 07/01/2018 3:15 AM [facility] [employer] LABORATORY SERVICES - . [facility] MCH 30.1 27.2 - 32.6 pg 07/01/2018 3:15 AM [facility] [employer] LABORATORY SERVICES - . [facility] MCHC 32.6 31.5 - 35.5 g/dL 07/01/2018 3:15 AM [facility] [employer] LABORATORY SERVICES - [facility] RDW 14.2 11.5 - 14.5 % 07/01/2018 3:15 AM [facility] [employer] LABORATORY SERVICES - . [facility] RDW-STDEV 48.3 37.1 - 48.7 fL 07/01/2018 3:15 AM [facility] [employer] LABORATORY SERVICES - . [facility] PLATELETS 192 140 - 350 K/uL 07/01/2018 3:15 AM [facility] [employer] SERVICES - . [facility] MPV 8.4(L) 9.3 - 12.4 fL 07/01/2018 3:15 AM [facility] [employer] LABORATORY SERVICES - . [facility] NEUTROPHILS 54 % 07/01/2018 3:15 AM [facility] [employer] LABORATORY SERVICES - [facility] LYMPHOCYTES 39 % 07/01/2018 3:15 AM [facility] LABORATORY SERVICES - [facility] MONOCYTES 5 % 07/01/2018 3:15 AM [facility] LABORATORY SERVICES - [facility] EOSINOPHILS 1 % 07/01/2018 3:15 AM [facility] LABORATORY SERVICES - [facility] BASOPHILS 0 % 07/01/2018 3:15 AM [facility] LABORATORY SERVICES - [facility] IMMATURE GRANULOCYTES 0 % 07/01/2018 3:15 AM [facility] LABORATORY [facility] NEUTROPHIL ABSOLUTE 3.78 1.90 - 7.00 K/uL 07/01/2018 3:15 AM [facility] LABORATORY SERVICES - [facility] LYMPHOCYTE ABSOLUTE 2.71 0.70 - 4.50 K/uL 07/01/2018 3:15 AM [facility] [employer] LABORATORY SERVICES - [facility] MONOCYTE ABSOLUTE 0.35 0.10 - 1.30 K/uL 07/01/2018 3:15 AM [facility] LABORATORY SERVICES - [facility] EOSINOPHIL ABSOLUTE 0.06 0.00 - 0.70 K/uL 07/01/2018 3:15 AM [facility] [employer] LABORATORY [facility] BASOPHILS ABSOLUTE 0.03 0.00 - 0.20 K/uL 07/01/2018 3:15 AM [facility] [employer] LABORATORY SERVICES - [facility] IMMATURE GRANULOCYTES ABSOLUTE 0.03 0.00 - 0.03 K/uL 07/01/2018 3:15 AM [facility] [employer] [facility] Blood Venipuncture / Unknown 07/01/2018 3:08 AM DIRECTOR MARKET RESEARCH 07/01/2018 3:11 AM DIRECTOR MARKET RESEARCH Niki Davenport MD HEMATOLOGY ORDERABLE S [facility] [employer] [facility]# [id number] [address] [facility] [address] [place] [phone] * (ABNORMAL) POC GLUCOSE (07/01/2018 1:41 AM DIRECTOR MARKET RESEARCH) GLUCOSE POC 116(H) 74 - 99 mg/dL 07/01/2018 1:52 AM [facility] LABORATORY [facility] MOTOR CARRIER INSPECTOR NAME POC TAMIKO LASSITER 07/01/2018 1:52 AM [facility] [employer] [facility] Whole blood specimen (specimen) 07/01/2018 1:41 AM DIRECTOR MARKET RESEARCH 07/01/2018 1:52 AM DIRECTOR MARKET RESEARCH Niki Davenport MD POINT OF CARE TESTJERONIMO Serrano Performing Organization Address [facility]/ZIP Co de Phone Number [facility] LABORATORY [facility] CLIA# [id number] [address] [place] [address] * (ABNORMAL) POC GLUCOSE (06/30/2018 8:49 PM DIRECTOR MARKET RESEARCH) GLUCOSE POC 144(H) 74 - 99 mg/dL 06/30/2018 9:03 PM DIRECTOR MARKET RESEARCH [facility] LABORATORY [facility] MOTOR CARRIER INSPECTOR NAME POC SABINA LASSITERI 06/30/2018 9:03 PM DIRECTOR MARKET RESEARCH [facility] LABORATORY [facility] Whole blood specimen (specimen) 06/30/2018 8:49 PM DIRECTOR MARKET RESEARCH 06/30/2018 9:03 PM DIRECTOR MARKET RESEARCH Niki Davenport MD POINT OF CARE TESTJERONIMO Serrano Performing Organization Address [facility] Co de Phone Number [facility] [employer] [facility] CLIA# [id number] [address] [place] [address] * POC GLUCOSE (06/30/2018 5:00 PM DIRECTOR MARKET RESEARCH) GLUCOSE POC 93 74 - 99 mg/dL 06/30/2018 5:17 PM DIRECTOR MARKET RESEARCH [facility] LABORATORY SERVICES [facility] MOTOR CARRIER INSPECTOR NAME POC EDA DE LOS SANTOS 06/30/2018 5:17 PM DIRECTOR MARKET RESEARCH [facility] LABORATORY SERVICES [facility] Whole blood specimen (specimen) 06/30/2018 5:00 PM DIRECTOR MARKET RESEARCH 06/30/2018 5:17 PM DIRECTOR MARKET RESEARCH Niki Davenport MD POINT OF CARE TESTJERONIMO Serrano Performing Organization Address [facility]/ZIP Co de Phone Number [facility] LABORATORY [facility] CLIA# [id number] [address] [place] [address] * (ABNORMAL) TRIGLYCERIDE (06/30/2018 5:00 PM DIRECTOR MARKET RESEARCH) TRIGLYCERIDE 870(H) <150 mg/dL 06/30/2018 6:37 PM DIRECTOR MARKET RESEARCH [facility] Blood Venipuncture / Unknown 06/30/2018 5:00 PM DIRECTOR MARKET RESEARCH 06/30/2018 5:32 PM DIRECTOR MARKET RESEARCH Narrative [facility] - 06/30/2018 6:37 PM DIRECTOR MARKET RESEARCH TRIGLYCERIDES ? mg/dL Normal ?< 150 Borderline High ?150 - 199 High ? 200 - 499 Very High ? >= 500 Based on AHA/NCEP Guidelines. Niki Davenport MD CHEMISTRY ORDERABLES Performing Organization Address [facility] Co de Phone Number [facility]# [id number] [address] [place] [address] * POC GLUCOSE (06/30/2018 1:15 PM DIRECTOR MARKET RESEARCH) GLUCOSE POC 86 74 - 99 mg/dL 06/30/2018 1:27 PM [facility] MOTOR CARRIER INSPECTOR NAME FLAKO RODRIGUEZ 06/30/2018 1:27 PM DIRECTOR MARKET RESEARCH [facility] Whole blood specimen (specimen) 06/30/2018 1:15 PM DIRECTOR MARKET RESEARCH 06/30/2018 1:27 PM DIRECTOR MARKET RESEARCH Niki Davenport MD POINT OF CARE TESTIN G Performing Organization Address [facility]/ZIP Co de Phone Number [facility]# [id number] [address] [place] [address] * POC GLUCOSE (06/30/2018 8:41 AM DIRECTOR MARKET RESEARCH) GLUCOSE POC 82 74 - 99 mg/dL 06/30/2018 8:59 AM DIRECTOR MARKET RESEARCH [facility] [employer] [facility] MOTOR CARRIER INSPECTOR NAME FLAKO RODRIGUEZ P 06/30/2018 8:59 AM [facility] [employer] [facility] Whole blood specimen (specimen) 06/30/2018 8:41 AM DIRECTOR MARKET RESEARCH 06/30/2018 8:59 AM DIRECTOR MARKET RESEARCH Niki Davenport MD POINT OF CARE TESTIN G Performing Organization Address [facility] de Phone Number [facility] [employer] [facility]# [id number] [address] [facility] [place] [address] * (ABNORMAL) TRIGLYCERIDE (06/30/2018 6:11 AM DIRECTOR MARKET RESEARCH) TRIGLYCERIDE 790(H) <150 mg/dL 06/30/2018 7:26 AM [facility] [employer] [facility] Blood Venipuncture / Unknown 06/30/2018 6:11 AM DIRECTOR MARKET RESEARCH 06/30/2018 6:40 AM DIRECTOR MARKET RESEARCH Narrative [facility] [employer] [facility] - 06/30/2018 7:26 AM DIRECTOR MARKET RESEARCH TRIGLYCERIDES ? mg/dL Normal ?< 150 Borderline High ?150 - 199 High ? 200 - 499 Very High ? >= 500 Based on AHA/NCEP Guidelines. Pernell Tapia MD CHEMISTRY ORDERABLES Performing Organization Address [facility] de Phone Number [facility] [employer] [facility]# [id number] [address] [place] [address] * BASIC METABOLIC PANEL (06/30/2018 6:11 AM DIRECTOR MARKET RESEARCH) SODIUM 138 136 - 145 mmol/L 06/30/2018 7:26 AM [facility] [employer] [facility] POTASSIUM 3.9 3.5 - 5.0 mmol/L 06/30/2018 7:26 AM [facility] [employer] [facility] CHLORIDE 103 98 - 107 mmol/L 06/30/2018 7:26 AM DIRECTOR MARKET RESEARCH [employer] [facility] CO2 25 22 - 29 mmol/L 06/30/2018 7:26 AM [facility] CALCIUM 9.2 8.6 - 10.2 mg/dL 06/30/2018 7:26 AM [facility] BUN 11 6 - 20 mg/dL 06/30/2018 7:26 AM [facility] CREATININE 0.59 0.51 - 0.95 mg/dL 06/30/2018 7:26 AM [facility] GLUCOSE 88 74 - 99 mg/dL 06/30/2018 7:26 AM [facility] GFR >60 >=60 mL/min/1.7 3 sq meter 06/30/2018 7:26 AM [facility] [employer] [facility] Comment: eGFR has not been validated for [...] GFR, >60 >=60 mL/min/1.7 3 sq meter 06/30/2018 7:26 AM [facility] ANION GAP 10 8 - 16 mmol/L 06/30/2018 7:26 AM [facility] [employer] [facility] Blood Venipuncture / Unknown 06/30/2018 6:11 AM DIRECTOR MARKET RESEARCH 06/30/2018 6:40 AM DIRECTOR MARKET RESEARCH Niki Davenport MD CHEMISTRY ORDERABLES [facility] [employer] [facility]# [id number] [address] [facility] [address] [address] * (ABNORMAL) CBC WITH DIFFERENTIAL (06/30/2018 6:11 AM DIRECTOR MARKET RESEARCH) WBC 8.1 4.0 - 9.8 K/uL 06/30/2018 6:49 AM [facility] [employer] LABORATORY SERVICES - [facility] RBC 4.14 3.90 - 4.90 M/uL 06/30/2018 6:49 AM [facility] [employer] LABORATORY SERVICES - . [facility] HEMOGLOBIN 12.1 11.8 - 14.8 g/dL 06/30/2018 6:49 AM DIRECTOR MARKET RESEARCH [employer] LABORATORY SERVICES - [facility] HEMATOCRIT 38.4 35.5 - 44.0 % 06/30/2018 6:49 AM [employer] LABORATORY SERVICES - . [facility] MCV 92.8 82.0 - 99.0 fL 06/30/2018 6:49 AM [employer] LABORATORY SERVICES - [facility] MCH 29.2 27.2 - 32.6 pg 06/30/2018 6:49 AM [employer] LABORATORY SERVICES - [facility] MCHC 31.5 31.5 - 35.5 g/dL 06/30/2018 6:49 AM [employer] LABORATORY SERVICES - . [facility] RDW 14.3 11.5 - 14.5 % 06/30/2018 6:49 AM [employer] LABORATORY SERVICES - . [facility] RDW-STDEV 49.0(H) 37.1 - 48.7 fL 06/30/2018 6:49 AM [employer] LABORATORY SERVICES - . [facility] PLATELETS 234 140 - 350 K/uL 06/30/2018 6:49 AM [employer] LABORATORY SERVICES - . [facility] MPV 8.9(L) 9.3 - 12.4 fL 06/30/2018 6:49 AM [employer] LABORATORY SERVICES - . [facility] NEUTROPHILS 49 % 06/30/2018 6:49 AM [employer] LABORATORY SERVICES [facility] LYMPHOCYTES 43 % 06/30/2018 6:49 AM [employer] LABORATORY SERVICES [facility] MONOCYTES 6 % 06/30/2018 6:49 AM [employer] LABORATORY SERVICES [facility] EOSINOPHILS 1 % 06/30/2018 6:49 AM [employer] LABORATORY SERVICES [facility] BASOPHILS 0 % 06/30/2018 6:49 AM [employer] LABORATORY SERVICES - . [facility] IMMATURE GRANULOCYTES 1 % 06/30/2018 6:49 AM [employer] LABORATORY SERVICES - . [facility] Comment:IG (Immature Granulo cyte) count includes Metamyelocytes, Myelocytes, and Promyelocytes NEUTROPHIL ABSOLUTE 3.99 1.90 - 7.00 K/uL 06/30/2018 6:49 AM [facility] [employer] LABORATORY SERVICES - [facility] LYMPHOCYTE ABSOLUTE 3.49 0.70 - 4.50 K/uL 06/30/2018 6:49 AM DIRECTOR MARKET RESEARCH [employer] LABORATORY SERVICES - [facility] MONOCYTE ABSOLUTE 0.45 0.10 - 1.30 K/uL 06/30/2018 6:49 AM DIRECTOR MARKET RESEARCH [employer] LABORATORY SERVICES - [facility] EOSINOPHIL ABSOLUTE 0.09 0.00 - 0.70 K/uL 06/30/2018 6:49 AM DIRECTOR MARKET RESEARCH [employer] LABORATORY SERVICES - [facility] BASOPHILS ABSOLUTE 0.03 0.00 - 0.20 K/uL 06/30/2018 6:49 AM DIRECTOR MARKET RESEARCH [employer] LABORATORY SERVICES - [facility] IMMATURE GRANULOCYTES ABSOLUTE 0.05(H) 0.00 - 0.03 K/uL 06/30/2018 6:49 AM [facility] [employer] LABORATORY SERVICES - [facility] Blood Venipuncture / Unknown 06/30/2018 6:11 AM DIRECTOR MARKET RESEARCH 06/30/2018 6:40 AM DIRECTOR MARKET RESEARCH Niki Davenport MD HEMATOLOGY ORDERABLE S [employer] SERVICES [facility]# [id number] [address] [address] * (ABNORMAL) DRUG SCREEN, URINE (06/29/2018 8:24 PM DIRECTOR MARKET RESEARCH) AMPHETAMINE QUAL, URINE Negative Negative 06/29/2018 9:09 PM DIRECTOR MARKET RESEARCH [employer] SERVICES - [facility] BARBITURATE QUAL, URINE Negative Negative 06/29/2018 9:09 PM DIRECTOR MARKET RESEARCH [employer] SERVICES - [facility] BENZODIAZEPINE QUAL, URINE Negative Negative 06/29/2018 9:09 PM [employer] [facility] SERVICES - . [facility] COCAINE QUAL URINE Negative Negative 06/29/2018 9:09 PM DIRECTOR MARKET RESEARCH [employer] SERVICES - [facility] OPIATE QUAL, URINE Negative Negative 06/29/2018 9:09 PM [facility] [employer] SERVICES [facility] CANNABINOIDS QUAL, URINE Presumptive Positive(A) Negative 06/29/2018 9:09 PM DIRECTOR MARKET RESEARCH [employer] SERVICES - . [facility] PCP QUAL, URINE Negative Negative 9 9:09 PM [facility] OXYCODONE QUAL, URINE Presumptive Positive(A) Negative 06/29/2018 9:09 PM [facility] METHADONE QUAL, URINE Negative Negative 06/29/2018 9:09 PM [facility] CREATININE, URINE 122.2 29.0 - 226.0 mg/dL 06/29/2018 9:09 PM [facility] Comment: Reference Range varies with fluid intake and diet. Urine URINE SPECIMEN OBTAINED BY CLEAN CATCH PROCEDURE / Unknown Collection / Unknown 06/29/2018 8:24 PM [facility] 06/29/2018 8:44 PM [facility] - 06/29/2018 9:09 PM [facility] STACIA INTERP: Urine sample was not handled as a legal specimen and was received without a chain of custody. ??The result should be used only for medical purposes. False positive and erroneous results can occur due to cross-reacting substances and other factors. Depending on the clinical context, confirmation of all presumptive positive results by a more specific alternate method is recommended. ??A negative result indicates the analyte, if present, is below the screening threshold. Drug ? Ref. Range ?Screening Threshold Amphetamines ?Negative ? 1000 ng/mL Barbiturates ?Negative ?200 ng/mL Benzodiazepines ? Negative ?100 ng/mL Cannabinoids ?Negative ? 50 ng/mL Cocaine Metabolites ?? Negative ?150 ng/mL Methadone ? Negative ?300 ng/mL Opiates ? Negative ?300 ng/mL Oxycodone ? Negative ?100 ng/mL Phencyclidine ? Negative ? 25 ng/mL To inquire about any potential cross-reactivity of a specific drug, please contact the Chemistry Lab at . Eva Duran MD URINE ORDERABLES [facility] LABORATORY SERVICES - [facility] CLIA# [id number] [address] [facility] [place] [address] * (ABNORMAL) URINALYSIS WITH REFLEX MICROSCOPIC (06/29/2018 8:23 PM DIRECTOR MARKET RESEARCH) COLOR UA Yellow Pale to Dark Yellow 06/29/2018 8:51 PM [facility] [employer] LABORATORY SERVICES - . [facility] CLARITY UA Clear Clear 06/29/2018 8:51 PM DIRECTOR MARKET RESEARCH [employer] LABORATORY SERVICES - . [facility] SPECIFIC GRAVITY UA 1.023 1.003 - 1.035 06/29/2018 8:51 PM [facility] [employer] LABORATORY SERVICES - . [facility] PH UA 5.0 5.0 - 8.0 06/29/2018 8:51 PM [facility] [employer] LABORATORY SERVICES - . [facility] LEUKOCYTE ESTERASE UA Negative Negative 06/29/2018 8:51 PM DIRECTOR MARKET RESEARCH [employer] LABORATORY SERVICES - . [facility] NITRITE UA Negative Negative 06/29/2018 8:51 PM [facility] [employer] LABORATORY SERVICES - . [facility] PROTEIN UA Negative Negative 06/29/2018 8:51 PM DIRECTOR MARKET RESEARCH [employer] LABORATORY SERVICES - . [facility] GLUCOSE UA 1+(A) Negative 06/29/2018 8:51 PM DIRECTOR MARKET RESEARCH [employer] LABORATORY SERVICES - . [facility] KETONES UA Negative Negative 06/29/2018 8:51 PM DIRECTOR MARKET RESEARCH [employer] LABORATORY SERVICES - . [facility] UROBILINOGEN UA Normal <2.0 mg/dL 9 8:51 PM DIRECTOR MARKET RESEARCH [employer] LABORATORY SERVICES - . [facility] BILIRUBIN UA Negative Negative 06/29/2018 8:51 PM DIRECTOR MARKET RESEARCH [employer] LABORATORY SERVICES - . [facility] BLOOD UA Negative Negative 06/29/2018 8:51 PM DIRECTOR MARKET RESEARCH [facility] LABORATORY SERVICES - . [facility] Urine URINE SPECIMEN OBTAINED BY CLEAN CATCH PROCEDURE / Unknown Collection / Unknown 06/29/2018 8:23 PM [employer] 06/29/2018 8:28 PM DIRECTOR MARKET RESEARCH Eva Duran MD URINE ORDERABLES Performing Organization Address [facility] Co de Phone Number [facility] [employer] [facility]# [id number] [address] [place] [address] * (ABNORMAL) HEMOGLOBIN A1C (06/29/2018 8:17 PM DIRECTOR MARKET RESEARCH) HEMOGLOBIN A1C 7.7(H) <5.7 % 06/29/2018 9:04 PM DIRECTOR MARKET RESEARCH [facility] LABORATORY [facility] EST. AVG GLUCOSE, A1C 174 mg/dL 06/29/2018 9:04 PM DIRECTOR MARKET RESEARCH [facility] [employer] [facility] Blood Venipuncture / Unknown 06/29/2018 8:17 PM DIRECTOR MARKET RESEARCH 06/29/2018 8:26 PM DIRECTOR MARKET RESEARCH Narrative [facility] LABORATORY [facility] - 06/29/2018 9:04 PM DIRECTOR MARKET RESEARCH HGB A1C INTERPRETATION NORMAL: ? <5.7% PRE-DIABETES: 5.7 - 6.4% DIABETES: ? 6.5% OR GREATER Eva Duran MD CHEMISTRY ORDERABLES Performing Organization Address City/[facility] Co de Phone Number [facility] [employer] [facility]# [id number] [address] [place] [address] * (ABNORMAL) PROTIME-INR (06/29/2018 8:17 PM DIRECTOR MARKET RESEARCH) PROTIME 12.0(L) 12.7 - 15.1 Seconds 06/29/2018 8:48 PM DIRECTOR MARKET RESEARCH [facility] LABORATORY [facility] INR 0.9 0.9 - 1.1 06/29/2018 8:48 PM DIRECTOR MARKET RESEARCH [facility] [employer] [facility] Blood Venipuncture / Unknown 06/29/2018 8:17 PM [employer] RESEARCH 06/29/2018 8:26 PM DIRECTOR MARKET RESEARCH Narrative [facility] LABORATORY [facility] - 06/29/2018 8:48 PM DIRECTOR MARKET RESEARCH INR Therapeutic Range: Adult: ?? 2.0 - 3.0 for pulmonary embolism or prophylaxis against venous ?thrombosis or systemic embolization. 2.0 - 3.0 for patients with tissue heart valves. 2.5 - 3.5 for patients with mechanical heart valves or post MA. Pediatric ??(12 years and under): 1.5 - 3.0 Although the target range in children is not well established, ?INR values of 1.5 - 3.0 are recommended for most patients. ?Higher values have been used in children with prosthetic ?cardiac valves and hereditary clotting disorders. (<3 days) therapeutic ranges have not been established. Eva Duran MD HEMATOLOGY ORDERABLE S Performing Organization Address City/[facility]/ZIP Co de Phone Number [facility] CLIA# [id number] [address] [place] [address] * LIPASE (06/29/2018 8:17 PM DIRECTOR MARKET RESEARCH) LIPASE 45 13 - 60 U/L 06/29/2018 9:08 PM DIRECTOR MARKET RESEARCH [facility] Blood Venipuncture / Unknown 06/29/2018 8:17 PM DIRECTOR MARKET RESEARCH 06/29/2018 8:26 PM DIRECTOR MARKET RESEARCH Eva Duran MD CHEMISTRY ORDERABLES [facility] CLIA# [id number] [address] [place] [address] * C-REACTIVE PROTEIN (06/29/2018 8:17 PM DIRECTOR MARKET RESEARCH) CRP 3.0 <5.0 mg/L 06/29/2018 9:08 PM DIRECTOR MARKET RESEARCH [facility] Blood Venipuncture / Unknown 06/29/2018 8:17 PM DIRECTOR MARKET RESEARCH 06/29/2018 8:26 PM DIRECTOR MARKET RESEARCH Eva Duran MD CHEMISTRY ORDERABLES [facility] LABORATORY SERVICES - [facility]# [id number] [address] [place] [address] * (ABNORMAL) COMPREHENSIVE METABOLIC PANEL (06/29/2018 8:17 PM [employer]) SODIUM 136 136 - 145 mmol/L 06/29/2018 10:02 PM [facility] [employer] LABORATORY SERVICES - [facility] POTASSIUM 4.1 3.5 - 5.0 mmol/L 06/29/2018 10:02 PM [facility] LABORATORY [facility] CHLORIDE 102 98 - 107 mmol/L 06/29/2018 10:02 PM [facility] LABORATORY [facility] CO2 23 22 - 29 mmol/L 06/29/2018 10:02 PM [facility] LABORATORY [facility] CALCIUM 9.6 8.6 - 10.2 mg/dL 06/29/2018 10:02 PM [facility] LABORATORY [facility] BUN 13 6 - 20 mg/dL 06/29/2018 10:02 PM [facility] LABORATORY [facility] CREATININE 0.60 0.51 - 0.95 mg/dL 06/29/2018 10:02 PM [facility] LABORATORY [facility] GLUCOSE 169(H) 74 - 99 mg/dL 06/29/2018 10:02 PM [facility] LABORATORY [facility] TOTAL PROTEIN 7.0 6.7 - 8.6 g/dL 06/29/2018 10:02 PM [facility] LABORATORY [facility] ALBUMIN 4.3 3.5 - 5.2 g/dL 06/29/2018 10:02 PM [facility] LABORATORY [facility] BILIRUBIN TOTAL <0.2(L) 0.3 - 1.2 mg/dL 06/29/2018 10:02 PM [facility] [employer] LABORATORY SERVICES - [facility] [place] Comment:Verified by repeat a nalysis. ALKALINE PHOSPHATASE 66 35 - 104 U/L 06/29/2018 10:02 PM [facility] [employer] LABORATORY SERVICES - [facility] AST 14 <33 U/L 06/29/2018 10:02 PM [facility] [employer] [facility] Comment: Cleared of chylomicrons. Hemolysis present. Result may be falsely elevated. ALT 10 <34 U/L 06/29/2018 10:02 PM [facility] Comment:Cleared of chylomicr ons. GFR >60 >=60 mL/min/1.7 3 sq meter 06/29/2018 10:02 PM [facility] Comment: eGFR has not been validated [...] GFR, >60 >=60 mL/min/1.7 3 sq meter 06/29/2018 10:02 PM [facility] [employer] [facility] ANION GAP 11 8 - 16 mmol/L 06/29/2018 10:02 PM [facility] Blood Venipuncture / Unknown 06/29/2018 8:17 PM [employer] 06/29/2018 8:26 PM [employer] Narrative [facility] - 06/29/2018 10:02 PM [employer] Samples containing indocyanine green cause interferences on Total and/or Direct Bilirubin and must not be measured. Eva Duran MD CHEMISTRY ORDERABLES [facility] CLIA# [id number] [place] [id number] * (ABNORMAL) CBC WITH DIFFERENTIAL (06/29/2018 8:17 PM [employer]) Pathologist [facility] WBC 8.6 4.0 - 9.8 K/uL 06/29/2018 8:36 PM [facility] RBC 4.23 3.90 - 4.90 M/uL 06/29/2018 8:36 PM [facility] LABORATORY SERVICES - . [facility] HEMOGLOBIN 12.9 11.8 - 14.8 g/dL 06/29/2018 8:36 PM [facility] LABORATORY SERVICES - . [facility] HEMATOCRIT 38.9 35.5 - 44.0 % 06/29/2018 8:36 PM [facility] LABORATORY SERVICES - . [facility] MCV 92.0 82.0 - 99.0 fL 06/29/2018 8:36 PM [facility] [employer] LABORATORY SERVICES - [facility] MCH 30.5 27.2 - 32.6 pg 06/29/2018 8:36 PM [facility] [employer] LABORATORY SERVICES - [facility] MCHC 33.2 31.5 - 35.5 g/dL 06/29/2018 8:36 PM [facility] [employer] LABORATORY SERVICES - [facility] RDW 14.1 11.5 - 14.5 % 06/29/2018 8:36 PM [facility] [employer] LABORATORY SERVICES - [facility] RDW-STDEV 48.2 37.1 - 48.7 fL 06/29/2018 8:36 PM [facility] [employer] LABORATORY SERVICES - [facility] PLATELETS 269 140 - 350 K/uL 06/29/2018 8:36 PM [facility] [employer] LABORATORY SERVICES - [facility] MPV 8.9(L) 9.3 - 12.4 fL 06/29/2018 8:36 PM [facility] [employer] LABORATORY SERVICES - . [facility] NEUTROPHILS 61 % 06/29/2018 8:36 PM [facility] [employer] LABORATORY SERVICES - . [facility] LYMPHOCYTES 33 % 06/29/2018 8:36 PM [facility] [employer] LABORATORY SERVICES - [facility] [place] MONOCYTES 5 % 06/29/2018 8:36 PM [facility] [employer] LABORATORY SERVICES - [facility] [place] EOSINOPHILS 1 % 06/29/2018 8:36 PM [facility] [employer] LABORATORY SERVICES - [facility] [place] BASOPHILS 0 % 06/29/2018 8:36 PM [employer] LABORATORY SERVICES - . [facility] IMMATURE GRANULOCYTES 1 % 06/29/2018 8:36 PM [facility] [employer] LABORATORY SERVICES - . [facility] Comment:IG (Immature Granulo cyte) count includes Metamyelocytes, Myelocytes, and Promyelocytes NEUTROPHIL ABSOLUTE 5.21 1.90 - 7.00 K/uL 06/29/2018 8:36 PM [facility] [employer] LABORATORY SERVICES - . [facility] LYMPHOCYTE ABSOLUTE 2.84 0.70 - 4.50 K/uL 06/29/2018 8:36 PM [employer] [facility] LABORATORY SERVICES - [facility] MONOCYTE ABSOLUTE 0.40 0.10 - 1.30 K/uL 06/29/2018 8:36 PM [employer] [facility] LABORATORY SERVICES - [facility] EOSINOPHIL ABSOLUTE 0.09 0.00 - 0.70 K/uL 06/29/2018 8:36 PM [employer] [facility] LABORATORY SERVICES - [facility] BASOPHILS ABSOLUTE 0.03 0.00 - 0.20 K/uL 06/29/2018 8:36 PM [employer] [facility] LABORATORY SERVICES - [facility] IMMATURE GRANULOCYTES ABSOLUTE 0.04(H) 0.00 - 0.03 K/uL 06/29/2018 8:36 PM [employer] [facility] LABORATORY SERVICES - [facility] Blood Venipuncture / Unknown 06/29/2018 8:17 PM [employer] 06/29/2018 8:26 PM [employer] Eva Duran MD HEMATOLOGY ORDERABLE S [facility] LABORATORY SERVICES [facility]# [id number] [address] [place] [id number] documented in this encounter Visit Diagnoses Diagnosis Chylomicronemia syndrome- Primary Hyperchylomicronemia Left upper quadrant pain Abdominal pain, left upper quadrant History of pancreatitis Personal history of other diseases of digestive system Hypertriglyceridemia Pure hyperglyceridemia Metabolic syndrome Dysmetabolic Syndrome X Type 2 diabetes mellitus without complication, with long-term current use of insulin History of plasmapheresis Hypothyroidism, unspecified type Chylomicronemia syndrome Hyperchylomicronemia Tobacco use Tobacco use disorder Family history of diabetes mellitus Marijuana use Cannabis abuse, unspecified Metabolic syndrome Dysmetabolic Syndrome X Hypothyroidism Unspecified hypothyroidism Hypertriglyceridemia Pure hyperglyceridemia Type 2 diabetes mellitus without complication, with long-term current use of insulin GERD (gastroesophageal reflux disease) Esophageal reflux Abdominal pain Abdominal pain, unspecified site Mixed hyperlipidemia History of pancreatitis Personal history of other diseases of digestive system documented in this encounter Administered Medications Inactive Administered Medications - up to 3 most recent administrations Medication Order MAR Action Action Date Dose Rate Site acetaminophen (TYLENOL) tablet 650 mg 650 mg, Oral, EVERY 6 HOURS PRN, Starting on 06/30/18 at 0128, Until Katie 07/03/18 at 1643, Other (See Comment), See admin instructions, Routine Given 07/02/2018 11:37 AM [employer] 650 mg Given 07/01/2018 2:08 PM [employer] 650 mg rimperi-llzygv-egoqepyq (CRERUDI 12 60-12-38 per capsule 2 Capsule 2 Capsule, Oral, FOUR TIMES DAILY WITH MEALS AND AT BEDTIME, First dose on Sat06/30/18 at 0800, Until Discontinued, Routine Given 07/03/2018 9:54 AM [employer] 2 Capsules Given 07/02/2018 8:00 PM [employer] 2 Capsules Given 07/02/2018 4:52 PM [employer] 2 Capsules atorvastatin (LIPITOR) tablet 80 mg 80 mg, Oral, DAILY AT BEDTIME, First dose on Sat06/30/18 at 2100, Until Discontinued, Routine Given 07/02/2018 8:01 PM [employer] 80 mg Given 07/01/2018 8:20 PM [employer] 80 mg Given 06/30/2018 9:10 PM [employer] 80 mg citalopram (CeleXA) tablet 40 mg 40 mg, Oral, DAILY AT BEDTIME, First dose on Sat06/30/18 at 2100, Until Discontinued, Routine Given 07/02/2018 8:01 PM [employer] 40 mg Given 07/01/2018 8:20 PM [employer] 40 mg Given 06/30/2018 9:10 PM [employer] 40 mg dextrose 5% - sodium chloride 0.45% infusion IV, at 150 mL/hr, CONTINUOUS, Starting on Sat06/30/18 at 0830, Until Sat07/03/18 at 0943, Routine Bag Switched 07/03/2018 1:55 AM [employer] 150 mL/hr Rate Verify 07/03/2018 1:17 AM [employer] 150 mL/hr Restarted 07/02/2018 11:22 PM [employer] 150 mL/hr dextrose 5% - sodium chloride 0.9% infusion IV, at 40 mL/hr, SEE ADMIN INSTRUCTIONS, Starting on Sat06/30/18 at 0132, Until Sat07/03/18 at 1643, Routine dextrose 50% (D50) syringe 12.5 Gram 12.5 Gram, IV, SEE ADMIN INSTRUCTIONS, Starting on Sat06/30/18 at 0132, Until Sat07/03/18 at 1643, Routine dextrose 50% (D50) syringe 25 Gram 25 Gram, IV, SEE ADMIN INSTRUCTIONS, Starting on Sat06/30/18 at 0132, Until 07/03/19 at 1643, Routine dicyclomine (BENTYL) capsule 10 mg 10 mg, Oral, FOUR TIMES DAILY, First dose on Sat06/30/18 at 0900, Until Discontinued, Routine Given 07/03/2018 9:54 AM [employer] 10 mg Given 07/02/2018 8:01 PM [employer] 10 mg Given 07/02/2018 12:12 PM [employer] 10 mg diphenhydrAMINE (BENADRYL) injection 25 mg 25 mg, IV, ONE TIME ONLY, 1 dose, On Sat06/29/18 at 2045, Routine Given 06/29/2018 9:06 PM [employer] 25 mg diphenhydrAMINE (BENADRYL) tablet 25 mg 25 mg, Oral, EVERY 6 HOURS PRN, Starting on Sat06/30/18 at 1356, Until [facility] 07/03/18 at 1643, Itching, Routine Given 07/02/2018 9:28 AM [employer] 25 mg Given 07/01/2018 2:14 PM [employer] 25 mg Given 07/01/2018 3:28 AM [employer] 25 mg enoxaparin (LOVENOX) injection 40 mg 40 mg, subCUT, EVERY 24 HOURS, First dose on Sat06/30/18 at 0900, Until Discontinued, Routine Given 07/03/2018 9:54 AM [employer] 40 mg Abdomen, Left Lower Quadrant Given 07/02/2018 8:24 AM [employer] 40 mg Ab domen, Right Lower Quadrant Given 07/01/2018 9:11 AM [employer] 40 mg Ab domen, Left Lower Quadrant fenofibrate (LOFIBRA) tablet 160 mg 160 mg, Oral, DAILY, First dose on Sat06/30/18 at 0900, Until Discontinued, Routine Given 07/03/2018 9:54 AM [employer] 160 mg Given 07/02/2018 8:23 AM [employer] 160 mg Given 07/01/2018 9:11 AM [employer] 160 mg Fish Oil-[place]-3 Fatty Acids 360-1,200 mg capsule 2 Capsule 2 Capsule, Oral, TWO TIMES DAILY, First dose on Sat07/01/18 at 2100, Until Discontinued, Routine Given 07/03/2018 9:54 AM [employer] 2 Capsules Given 07/02/2018 8:01 PM [employer] 2 Capsules Given 07/02/2018 8:23 AM [employer] 2 Capsules HYDROmorphone (DILAUDID) 2 mg/mL injection 1 mg 1 mg, IV, EVERY 2 HOURS PRN, Starting on Sat07/02/18 at 2235, Until Sat07/03/18 at 0945, Pain, Severe, Routine Given 07/02/2018 10:44 PM [employer] 1 mg hydrOXYzine HCl (ATARAX) tablet 25 mg 25 mg, Oral, ONE TIME ONLY, 1 dose, On Sat06/30/18 at 2315, Routine Given 06/30/2018 11:35 PM [employer] 25 mg insulin glargine (LANTUS) injection 10 Units 10 Units, subCUT, DAILY WITH BREAKFAST, First dose (after last modification) on Sat07/03/18 at 0845, Until Discontinued, Routine, If ordered at or before 3:00 pm give dose now and start daily with breakfast tomorrow. If ordered after 3:00 pm give dose now and start daily at bedtime tomorrow. Given 07/03/2018 10:55 AM [employer] 10 Units Arm, Left Upper insulin glargine (LANTUS) injection 12 Units 12 Units, subCUT, DAILY WITH BREAKFAST, First dose (after last modification) on Sat07/02/18 at 1000, Until Discontinued, Routine, If ordered at or before 3:00 pm give dose now and start daily with breakfast tomorrow. If ordered after 3:00 pm give dose now and start daily at bedtime tomorrow. Given 07/02/2018 12:02 PM [employer] 12 Units Arm, Left Upper insulin lispro (HumaLOG) injection 3 Units 3 Units, subCUT, THREE TIMES DAILY WITH MEALS, First dose on Sat07/02/18 at 1200, Until Discontinued, Routine Given 07/02/2018 4:53 PM [employer] 3 Units Arm, Right Upper insulin lispro (HumaLOG) variable dose injection subCUT, THREE TIMES DAILY WITH MEALS, First dose on Sat07/02/18 at 1200, Until Discontinued, Routine Given 07/03/2018 10:56 AM [employer] 1 Units Arm, Right Upper Given 07/02/2018 4:54 PM [employer] 2 Units Ar m, Right Upper insulin lispro (HumaLOG) variable dose injection subCUT, DAILY AT BEDTIME, First dose on Sat07/02/18 at 2100, Until Discontinued, Routine Given 07/02/2018 9:54 PM [employer] 2 Units Arm, Right Upper insulin regular (HUMULIN R,NOVOLIN R) 100 Units in sodium chloride 0.9% 100 mL infusion 0-25 Units/hr (0-25 mL/hr), IV, TITRATE, Starting on Sat06/30/18 at 0900, Until Katie 07/03/18 at 0943 Rate Change 07/02/2018 12:03 PM [employer] 2.5 Units/hr 2.5 mL/hr Rate Verify 07/02/2018 11:06 AM [employer] 2 Units/hr 2 mL/hr Rate Verify 07/02/2018 10:11 AM [employer] 2 Units/hr 2 mL/hr levothyroxine (SYNTHROID) tablet 200 mcg 200 mcg, Oral, DAILY EARLY, First dose on Sat06/30/18 at 0600, Until Discontinued, Routine Given 07/02/2018 6:00 AM [employer] 200 mcg Given 07/01/2018 9:11 AM [employer] 200 mcg Given 06/30/2018 5:14 AM [employer] 200 mcg LORazepam (ATIVAN) tablet 1 mg 1 mg, Oral, TWO TIMES DAILY PRN, Starting on Sat06/30/18 at 0126, Until Sat07/03/18 at 1643, Anxiety, Routine Given 07/02/2018 8:00 PM [employer] 1 mg Given 07/02/2018 11:37 AM [employer] 1 mg Given 07/01/2018 9:31 PM [employer] 1 mg metoclopramide (REGLAN) 5 mg/mL injection 10 mg 10 mg, IV, ONE TIME ONLY, 1 dose, On Sat06/29/18 at 2045, Routine Given 06/29/2018 9:11 PM [employer] 10 mg morphine 4 mg/mL injection 4 mg 4 mg, IV, ONE TIME ONLY, 1 dose, On Sat06/29/18 at 2045, Routine Given 06/29/2018 9:13 PM [employer] 4 mg morphine 4 mg/mL injection 4 mg 4 mg, IV, ONE TIME ONLY, 1 dose, On Sat06/30/18 at 0030, Routine Given 06/30/2018 12:27 AM [employer] 4 mg morphine 4 mg/mL injection 4 mg 4 mg, IV, EVERY 4 HOURS PRN, Starting on Sat06/30/18 at 0128, Until Sat07/02/18 at 2236, Pain (See admin instructions), Routine Given 07/02/2018 9:57 PM [employer] 4 mg Given 07/02/2018 5:34 PM [employer] 4 mg Given 07/02/2018 1:11 PM [employer] 4 mg niacin (NIACOR) tablet 500 mg 500 mg, Oral, TWO TIMES DAILY, First dose on Sat07/01/18 at 1600, Until Discontinued, Routine Given 07/03/2018 9:54 AM [employer] 500 mg Given 07/02/2018 8:01 PM [employer] 500 mg Given 07/02/2018 8:16 AM [employer] 500 mg nicotine (NICODERM CQ) 21 mg/24 hr transdermal patch 1 Patch 1 Patch, Transdermal, DAILY, First dose on Sat06/30/18 at 2200, Until Discontinued, Routine Applied 07/03/2018 9:55 AM [employer] 1 Patch Arm, Left Upper Applied 07/02/2018 8:24 AM [employer] 1 Patch Ar m, Left Upper Applied 07/01/2018 11:01 AM [employer]EARCH 1 Patch S houlder, Right ondansetron (ZOFRAN ODT) tablet 4 mg 4 mg, Oral, EVERY 6 HOURS PRN, Starting on Sat06/30/18 at 0126, Until Sat07/03/18 at 1643, Nausea/Emesis, Routine Given 07/02/2018 9:57 PM [employer] 4 mg Given 07/02/2018 7:28 AM [employer] 4 mg Given 06/30/2018 8:54 PM [employer] 4 mg oxyCODONE-acetaminophen (PERCOCET) 5-325 mg per tablet 1 Tablet 1 Tablet, Oral, EVERY 4 HOURS PRN, Starting on Sat06/30/18 at 0127, Until Sat07/03/18 at 1643, Pain, Routine Given 07/03/2018 9:53 AM [employer] 1 Tablet Given 07/03/2018 3:30 AM [employer] 1 Tablet Given 07/02/2018 8:00 PM [employer] 1 Tablet pantoprazole (PROTONIX) injection 40 mg 40 mg, IV, ONE TIME ONLY, 1 dose, On Sat06/29/18 at 2045, Routine Given 06/29/2018 9:17 PM [employer] 40 mg pantoprazole (PROTONIX) tablet 40 mg 40 mg, Oral, TWO TIMES DAILY, First dose on Sat06/30/18 at 0900, Until Discontinued, Routine Given 07/03/2018 9:54 AM [employer] 40 mg Given 07/02/2018 8:00 PM [employer] 40 mg Given 07/02/2018 8:23 AM [employer] 40 mg prochlorperazine (COMPAZINE) injection 10 mg 10 mg, IV, EVERY 6 HOURS PRN, Starting on Sat07/02/18 at 2234, Until Katie 07/03/18 at 1643, Nausea/Emesis, Routine Given 07/02/2018 10:44 PM [employer] 10 mg spironolactone (ALDACTONE) tablet 25 mg 25 mg, Oral, DAILY, First dose on Sat06/30/18 at 0900, Until Discontinued, Routine Given 06/30/2018 8:32 AM [employer] 25 mg traZODone (DESYREL) tablet 100 mg 100 mg, Oral, DAILY AT BEDTIME, First dose on Sat06/30/18 at 2100, Until Discontinued, Routine Given 07/02/2018 8:00 PM [employer] 100 mg Given 07/01/2018 8:19 PM [employer] 100 mg Given 06/30/2018 10:38 PM [employer] 100 mg documented in this encounter Active and Recently Administered Medications Times are shown in [employer]. Scheduled Medication Order 07/01/2018 07/02/2018 07/03/2018 [id number] e (CREON 12 60-12-38 per capsule 2 Capsule 2 Capsule, Oral, FOUR TIMES DAILY WITH MEALS AND AT BEDTIME, First dose on Sat06/30/18 at 0800, Until Discontinued, Routine 0800 (Refused - Provider: Eligio Callejas RN - Comment: only takes with meals)1325 (Given - Provider: Eligio Callejas RN)1717 (Given - Provider: Taisha Zuniga RN)2020 (Given - Provider: Yamil Milan RN) 0823 (Given - Provider: Tavares Guzman, CLAU)1137 (Given - Provider: Tavares Guzman RN)1652 (Given - Provider: Luisa Quiroz RN)1999 (Given - Provider: Yamil Milan RN) 0954 (Given - Provider: Thi Moffett, RN)1200 (Not Given - Provider: Thi Moffett, RN - Reason: Clarify-Other (Comment) - Comment: Pt leaving soon and wants to wait.) atorvastatin (LIPITOR) tablet 80 mg 80 mg, Oral, DAILY AT BEDTIME, First dose on Sat06/30/18 at 2100, Until Discontinued, Routine 2019 (Given - Provider: Yamil Milan RN) 2000 (Given - Provider: Yamil Milan RN) citalopram (CeleXA) tablet 40 mg 40 mg, Oral, DAILY AT BEDTIME, First dose on Sat06/30/18 at 2100, Until Discontinued, Routine 2019 (Given - Provider: Yamil Milan RN) 2000 (Given - Provider: Yamil Milan RN) dextrose 5% - sodium chloride 0.9% infusion IV, at 40 mL/hr, SEE ADMIN INSTRUCTIONS, Starting on Sat06/30/18 at 0132, Until Katie 07/03/18 at 1643, Routine dextrose 50% (D50) syringe 12.5 Gram 12.5 Gram, IV, SEE ADMIN INSTRUCTIONS, Starting on Sat06/30/18 at 0132, Until Katie 07/03/18 at 1643, Routine dextrose 50% (D50) syringe 25 Gram 25 Gram, IV, SEE ADMIN INSTRUCTIONS, Starting on Sat06/30/18 at 0132, Until Katie 07/03/18 at 1643, Routine dicyclomine (BENTYL) capsule 10 mg 10 mg, Oral, FOUR TIMES DAILY, First dose on Sat06/30/18 at 0900, Until Discontinued, Routine 09 (Given - Provider: Eligio Callejas RN)1407 (Given - Provider: Eligio Callejas RN)1717 (Given - Provider: Taisha Zuniga RN)2019 (Given - Provider: Yamil iMlan RN) 0823 (Given - Provider: Tavares Guzman RN)1212 (Given - Provider: Tavares Guzman RN)1800 (Not Given - Provider: Yamil Milan RN - Reason: Patient condition)2000 (Given - Provider: Yamil Milan RN) 0954 (Given - Provider: Thi Moffett, RN)1300 (Due) enoxaparin (LOVENOX) injection 40 mg 40 mg, subCUT, EVERY 24 HOURS, First dose on Sat06/30/18 at 0900, Until Discontinued, Routine 09 (Given - Provider: Eligio Callejas RN) 0824 (Given - Provider: Tavares Guzman, CLAU) 0954 (Given - Provider: Thi Moffett, RN) fenofibrate (LOFIBRA) tablet 160 mg 160 mg, Oral, DAILY, First dose on Sat06/30/18 at 0900, Until Discontinued, Routine 09 (Given - Provider: Eligio Callejas RN) 08 (Given - Provider: Tavares Guzmna RN) 0954 (Given - Provider: Thi Moffett RN) Fish Oil-[place]-3 Fatty Acids 360-1,200 mg capsule 2 Capsule 2 Capsule, Oral, TWO TIMES DAILY, First dose on Sat07/01/18 at 2100, Until Discontinued, Routine 2018 (Given - Provider: Yamil Milan RN) 08 (Given - Provider: Tavares Guzman RN)2000 (Given - Provider: Yamil Milan RN) 09 (Given - Provider: Thi Moffett RN) insulin glargine (LANTUS) injection 10 Units 10 Units, subCUT, DAILY WITH BREAKFAST, First dose (after last modification) on Sat07/03/18 at 0845, Until Discontinued, Routine, If ordered at or before 3:00 pm give dose now and start daily with breakfast tomorrow. If ordered after 3:00 pm give dose now and start daily at bedtime tomorrow. 1055 (Given - Provid er: Thi Moffett RN) insulin glargine (LANTUS) injection 12 Units (CANCELED) 12 Units, subCUT, DAILY WITH BREAKFAST, First dose (after last modification) on Sat07/02/18 at 1000, Until Discontinued, Routine, If ordered at or before 3:00 pm give dose now and start daily with breakfast tomorrow. If ordered after 3:00 pm give dose now and start daily at bedtime tomorrow. 1202 (Given - Provider: Tavares Guzman RN) insulin lispro (HumaLOG) injection 3 Units (CANCELED) 3 Units, subCUT, THREE TIMES DAILY WITH MEALS, First dose on Sat07/02/18 at 1200, Until Discontinued, Routine 1200 (Not Given - Provider: Tavares Guzman RN - Reason: Clarify-Other (Comment) - Comment: insulin gtt continued for now.)1653 (Given - Provider: Luisa Quiroz, CLAU) insulin lispro (HumaLOG) variable dose injection subCUT, THREE TIMES DAILY WITH MEALS, First dose on Sat07/02/18 at 1200, Until Discontinued, Routine 1200 (Canceled Entry - Provider: Tavares Guzman RN)1654 (Given - Provider: Luisa Quiroz RN - Comment: BG 193) 1056 (Given - Provider: Thi Moffett RN - Comment: 150)1200 (Refused - Provider: Thi Moffett RN - Comment: Pt leaving soon, does not want to eat here.) insulin lispro (HumaLOG) variable dose injection subCUT, DAILY AT BEDTIME, First dose on Sat07/02/18 at 2100, Until Discontinued, Routine 2154 (Given - Provider: Yamil Milan RN - Comment: bg 211) levothyroxine (SYNTHROID) tablet 200 mcg 200 mcg, Oral, DAILY EARLY, First dose on Sat06/30/18 at 0600, Until Discontinued, Routine 0911 (Given - Provider: Eligio Callejas RN) 0600 (Given - Provider: Yamil Milan, RN - Comment: scanner not working) 1300 (Due - Provider: Thi Moffett, CLAU) naloxone (NARCAN) 0.4 mg/mL injection 0.1 mg 0.1 mg, IV, SEE ADMIN INSTRUCTIONS, Starting on Sat06/30/18 at 0127, Until Sat07/03/18 at 1643, Routine niacin (NIACOR) tablet 500 mg 500 mg, Oral, TWO TIMES DAILY, First dose on Sat07/01/18 at 1600, Until Discontinued, Routine 1718 (Given - Provider: Taisha Zuniga RN) 0816 (Given - Provider: Tavares Guzman RN)2000 (Given - Provider: Yamil Milan RN) 0954 (Given - Provider: Thi Moffett, CLAU) nicotine (NICODERM CQ) 21 mg/24 hr transdermal patch 1 Patch 1 Patch, Transdermal, DAILY, First dose on Sat06/30/18 at 2200, Until Discontinued, Routine 0911 (Removed - Provider: Eligio Callejas RN)1101 (Applied - Provider: Eligio Caleljas RN) 0816 (Removed - Provider: Tavares Guzman RN)0824 (Applied - Provider: Tavares Guzman, RN) 0824 (Removed - Provider: Thi Moffett, RN)0955 (Applied - Provider: Thi Moffett, RN)1443 (Due: Removed - Provider: PROVIDER, DISCHARGE PATIENT - Comment: Time automatically adjusted from order being discontinued) pantoprazole (PROTONIX) tablet 40 mg 40 mg, Oral, TWO TIMES DAILY, First dose on Sat06/30/18 at 0900, Until Discontinued, Routine 0912 (Given - Provider: Eligio Callejas RN)2018 (Given - Provider: Yamil Milan RN) 0823 (Given - Provider: Tavares Guzman RN)1999 (Given - Provider: Yamil Milan RN) 0954 (Given - Provider: Thi Moffett, CLAU) traZODone (DESYREL) tablet 100 mg 100 mg, Oral, DAILY AT BEDTIME, First dose on Sat06/30/18 at 2100, Until Discontinued, Routine 2019 (Given - Provider: Yamil Milan RN) 1999 (Given - Provider: Yamil Milan RN) Continuous Medication Order 07/01/2018 07/02/2018 07/03/2018 dextrose 5% - sodium chloride 0.45% infusion (CANCELED) IV, at 150 mL/hr, CONTINUOUS, Starting on Sat06/30/18 at 0830, Until Katie 07/03/18 at 0943, Routine 0008 (New Bag - Provider: BLAISE Moreno)0725 (New Bag - Provider: BLAISE Moreno)0900 (Rate Verify - Provider: Eligio Callejas RN)1321 (Stopped - Provider: Eligio Callejas RN)1500 (Restarted - Provider: Taisha Zuniga RN)1600 (Rate Verify - Provider: Taisha Zuniga RN)1700 (Rate Verify - Provider: Taisha Zuniga RN)1800 (Rate Verify - Provider: Taisha Zuniga RN)2153 (Rate Verify - Provider: Yamil Milan RN)2308 (Bag Switched - Provider: Yamil Milan RN) 0727 (Rate Verify - Provider: Tavares Guzman RN)1210 (Bag Switched - Provider: Tavares Guzman RN)1500 (Rate Verify - Provider: Luisa Quiroz RN)1514 (Paused - Provider: Luisa Quiroz RN)1514 (Restarted - Provider: Luisa Quiroz RN)1516 (Paused - Provider: Luisa Quiroz RN)1517 (Restarted - Provider: Luisa Quiroz RN)1600 (Rate Verify - Provider: Luisa Quiroz RN)1617 (Paused - Provider: Luisa Quiroz RN)1621 (Restarted - Provider: Luisa Quiroz RN)1700 (Rate Verify - Provider: Luisa Quiroz RN)1800 (Rate Verify - Provider: Luisa Quiroz RN)1859 (Rate Change - Provider: Yamil Milan RN)1913 (Rate Change - Provider: Yamil Milan RN)192 (Rate Change - Provider: Yamil Milan RN)192 (Rate Change - Provider: Yamil Milan RN)2213 (Rate Verify - Provider: Yamil Milan RN)2321 (Paused - Provider: Yamil Milan RN)2322 (Restarted - Provider: Yamil Milan RN) 0117 (Rate Verify - Provider: Yamil Milan RN)0155 (Bag Switched - Provider: Yamil Milan RN)0330 (Stopped - Provider: Yamil Milan RN - Comment: per endocrinology) insulin regular (HUMULIN R,NOVOLIN R) 100 Units in sodium chloride 0.9% 100 mL infusion (CANCELED) 0-25 Units/hr (0-25 mL/hr), IV, TITRATE, Starting on 06/30/18 at 0900, Until Katie 07/03/18 at 0943 1121 (New Bag - Provider: Eligio Callejas RN)1332 (Rate Change - Provider: Eligio Callejas RN - Comment: 231)1415 (Rate Change - Provider: Eligio Callejas RN)1500 (Rate Verify - Provider: Taisha Zuniga RN)1600 (Rate Verify - Provider: Taisha Zuniga RN)1700 (Rate Verify - Provider: Taisha Zuniga RN)1800 (Rate Verify - Provider: Taisha Zuniga RN)2017 (Rate Verify - Provider: Yamil Milan RN)2125 (Rate Change - Provider: Yamil Milan RN)213 (Rate Verify - Provider: Yamil Milan RN)2153 (Rate Verify - Provider: Yamil Milan RN)2224 (Rate Verify - Provider: Yamil Milan RN)2310 (Rate Change - Provider: Yamil Milan RN - Comment: bg 180) 0011 (Rate Verify - Provider: Yamil Milan RN)0131 (Rate Verify - Provider: Yamil Milan RN - Comment: bg 169)0316 (New Bag - Provider: Yamil Milan RN)0417 (Rate Change - Provider: Yamil Milan RN)0507 (Rate Change - Provider: Yamil Milan RN)0702 (New Bag - Provider: Yamil Milan RN)0727 (Rate Verify - Provider: Tavares Guzman RN)0813 (Rate Change - Provider: Tavares Guzman RN - Comment: BG 90)0902 (Rate Verify - Provider: Tavares Guzman RN - Comment: BG 112)1011 (Rate Verify - Provider: Tavares Guzman RN - Comment: BG 132)1106 (Rate Verify - Provider: Tavares Guzman RN - Comment: BG 153)1203 (Rate Change - Provider: Tavares Guzman RN - Comment: BG 198)1440 (Stopped - Provider: Tavares Guzman RN) PRN Medication Order 07/01/2018 07/02/2018 07/03/2018 acetaminophen (TYLENOL) tablet 650 mg 650 mg, Oral, EVERY 6 HOURS PRN, Starting on Sat06/30/18 at 0128, Until Katie 07/03/18 at 1643, Other (See Comment), See admin instructions, Routine 1408 (Given - Provider: Eligio Callejas RN) 1137 (Given - Provider: Tavares Guzman RN) diphenhydrAMINE (BENADRYL) tablet 25 mg 25 mg, Oral, EVERY 6 HOURS PRN, Starting on Sat06/30/18 at 1356, Until Katie 07/03/18 at 1643, Itching, Routine 0328 (Given - Provider: BLAISE Moreno)1414 (Given - Provider: Eligio Callejas RN) 0928 (Given - Provider: Eda Esparza RN) HYDROmorphone (DILAUDID) 2 mg/mL injection 1 mg (CANCELED) 1 mg, IV, EVERY 2 HOURS PRN, Starting on Sat07/02/18 at 2235, Until Sat07/03/18 at 0945, Pain, Severe, Routine 2244 (Given - Provider: Yamil Milan RN) LORazepam (ATIVAN) tablet 1 mg 1 mg, Oral, TWO TIMES DAILY PRN, Starting on Sat06/30/18 at 0126, Until Katie 07/03/18 at 1643, Anxiety, Routine 0915 (Given - Provider: Eligio Callejas RN)2131 (Given - Provider: Yamil Milan RN) 1137 (Given - Provider: Tavares Guzman RN - Comment: Restless)1999 (Given - Provider: Yamil Milan RN) morphine 4 mg/mL injection 4 mg (CANCELED) 4 mg, IV, EVERY 4 HOURS PRN, Starting on Sat06/30/18 at 0128, Until 07/02/18 at 2236, Pain (See admin instructions), Routine 0632 (Given - Provider: [employer], CLAU)1101 (Given - Provider: Eligio Callejas, RN)1719 (Given - Provider: Taisha Zuniga, RN)2128 (Given - Provider: Yamil Milan RN) 0829 (Given - Provider: Tavares Guzman RN)1311 (Given - Provider: Tavares Guzman RN)1734 (Given - Provider: Luisa Quiroz, RN)215 (Given - Provider: Yamil Milan RN) ondansetron (ZOFRAN ODT) tablet 4 mg 4 mg, Oral, EVERY 6 HOURS PRN, Starting on Sat06/30/18 at 0126, Until Katie 07/03/18 at 1643, Nausea/Emesis, Routine 0728 (Given - Provider: Tavares Guzman RN)2157 (Given - Provider: Yamil Milan RN) oxyCODONE-acetaminophe n (PERCOCET) 5-325 mg per tablet 1 Tablet 1 Tablet, Oral, EVERY 4 HOURS PRN, Starting on Sat06/30/18 at 0127, Until Katie 07/03/18 at 1643, Pain, Routine 0305 (Given - Provider: BLAISE Moreno)0907 (Given - Provider: Eligio Callejas, RN)1600 (Given - Provider: Taisha Zuniga, RN)2019 (Given - Provider: Yamil Milan RN) 0727 (Given - Provider: Tavares Guzman RN)1212 (Given - Provider: Tavares Guzman RN)1612 (Given - Provider: Luisa Quiroz, RN)2000 (Given - Provider: Yamil Milan RN) 0330 (Given - Provider: Yamil Milan RN)0953 (Given - Provider: Thi Moffett, CLAU) prochlorperazine (COMPAZINE) injection 10 mg 10 mg, IV, EVERY 6 HOURS PRN, Starting on Sat07/02/18 at 2234, Until Katie 07/03/18 at 1643, Nausea/Emesis, Routine 2244 (Given - Provider: Yamil Milan RN) documented in this encounter Care Teams [employer] Relationship Specialty Start Date End Date Guerrero Middleton PA-C PCP - General Physician Orthopedics Nurse 02/13/18 documented as of this encounter
--- OUTSIDE RECORDS SUMMARY | 2024-05-03 20:45 | XMS_ITS | Encounter Summary ---
Author Organization [facility] Address [address] [place] [address] Care Team Providers Care Network Support Name Role Phone Guerrero Middleton PA-C Primary Care Provide r Reason for Visit * Reason Comments Abdominal Pain Pt arrives to ED wit h LUQ abdominal pain that radiates to back x3 days. Pt has associated nausea/vomiting and diarrhea. Pt has been taking percocet and zofran without relief. Pt was admitted with pancreatitis on 05/16/18 and her symptoms feel similiar. Denies fever/chills. * Auth/Cert Specialty Diagnoses / Procedures Referred By Tequila t Referred To Contact Critical Care Medicine [facility] Transitional Care Unit [address] [place] [address] Referral ID Status Reason Start Date Expiration Date Visits Re quested Visits Authorized [id number] 06/03/2018 07/04/2019 1 Encounter Details Date Type Department Care Team (Latest Contact Info) Description 06/02/2018 7:28 PM ICE SCRAPER - 06/05/2018 6:03 PM ICE SCRAPER Hospital Encounter [facility] Transitional Care Unit [address] [place] [address] Ceasar Kelley MD [address] [place] [address] Mc Stinson MD [address] [place] [address] [place] [address] [place] [address] Chylomicronemia syndrome Discharge Disposition: Home or Self [...] Sign Reading Time Taken Comments Blood Pressure 124/78 06/05/2018 3:24 PM ICE SCRAPER Pulse 68 06/05/2018 3:24 PM ICE SCRAPER Temperature 36.8 ??C (98.2 ??F) 06/05/2018 3:24 PM CS T Respiratory Rate 9 06/05/2018 3:24 PM ICE SCRAPER Oxygen Saturation 94% 06/05/2018 3:24 PM ICE SCRAPER Inhaled Oxygen Concentration - - Weight 90.5 kg (199 lb 8 oz) 06/03/2018 1:04 AM ICE SCRAPER Height 165.1 cm (5' 5 ) 06/03/2018 1:04 AM ICE SCRAPER Body Mass Index 33.2 06/03/2018 1:04 AM ICE SCRAPER documented in this encounter Discharge Summaries * Rosalia Thurman MD - 06/05/2018 11:44 AM CST [facility] Adult Discharge Summary Casandra Jones 42 y.o. female 1975 CSN: [id number] Date of Admission: 06/02/2018 Date of Discharge: 06/05/2018 Discharging Physician: Rosalia Thurman MD LOS: 2 days PCP: Guerrero Middleton PA-C Activity: activity as tolerated. Dispo: home Diet: Low fat diet. Code Status at Discharge: FULL Wound Care: None needed 45 Minutes spent in the d/c process today. Admitting Dx and Chief Complaint Chief Complaint Patient presents with ??? Abdominal Pain Pt arrives to ED with LUQ abdominal pain that radiates to back x3 days. Pt has associated nausea/vomiting and diarrhea. Pt has been taking percocet and zofran without relief. Pt was admitted with pancreatitis on 05/16/18 and her symptoms feel similiar. Denies fever/chills. Chylomicronemia syndrome Discharge Diagnoses and Relevant Hospital Course: Principal Problem: Chylomicronemia syndrome Active Problems: Hypertriglyceridemia Type 2 diabetes mellitus without complication, with long-term current use of insulin Abdominal pain History of plasmapheresis Patient is a 42-year-old female with past medical history of type 2 diabetes mellitus, hypertriglyceridemia status post plasmapheresis in the past for pancreatitis. She was admitted on 06/02 for abdominal pain with normal lipase and severely elevated triglycerides (1, 009 on admission). Her symptoms were attributed to chylomicrons anemia syndrome and she was started on an insulin drip with every 12monitoring of triglycerides. This morning she reported a triglyceride of 421, with improvement in pain. She was also able to tolerate her diet. She was given Lantus 24 units which overlapped with herinsulin before 2 hours. Afterwards she was also started on high-dose insulin sliding scale. She is being discharged home today due to better symptom control. Her lipid management and insulin treatment regimen are unchanged at discharge. Recommend compliance with low-fat and low-carb diet, smoking cessation and follow-up with primary care physician in 1-2 weeks. Discharge medications and new prescriptions: Medication List START taking these medications dicyclomine 10 mg capsule Commonly known as: BENTYL Take 1 Capsule (10 mg) by mouth 4 times daily. Signed by: Rosalia Thurman MD Quantity: 15 Capsule Refills: 0 CONTINUE taking these medications citalopram 40 mg tablet Commonly known as: CeleXA Take 40 mg by mouth daily at bedtime. Refills: 0 CREON 60-12-38 capsule Take 2 Capsules by mouth 4 times daily with meals and at bedtime. Refills: 0 Generic drug: yzaoedb-gcyjyk-lhxztify DR fenofibrate 160 mg Tablet Commonly known as: [...] by mouth 2 times daily. Refills: 0 [id number]-Fish Oil [phone] md-ua-owu-mcg Capsule Take 2 Caplets by mouth 2 [...] Max Daily Amount: 6 Tablets Signed by: Wendie Desai MD Quantity: 15 Tablet Refills: 0 pantoprazole 40 mg Tablet, [...] known as: DESYREL Take 100 mg by mouth. Refills: 0 Where to Get Your Medications These medications were sent to [address] [facility], [facility] [id number] Hours: Saturday-Saturday: 8 a.m. - 8 p.m., Saturday: 9 a.m. - 5 p.m., Saturday: 10 a.m. - 2 p.m. ?? dicyclomine 10 mg capsule ?? metFORMIN 500 mg tablet Consultants: IP CONSULT TO CASE MANAGEMENT IP CONSULT TO SOCIAL WORK Brief Synopsis of Diagnostic Studies This Admission (Please see full report for details): Lab Results Component Value Date/Time CHOLTOT 505 [...] PM TRIGLYCERIDE 628 (H) 06/04/2018 04:40 AM ALT 22 06/04/2018 04:40 AM AST 24 06/04/2018 04:40 AM Labs and Studies from this Hospitalization Needing Follow Up: ?? None Discharge Lab Data (Please note date of lab as some may have preceeded admission) Lab Results Component Value Date/Time WBC 10.0 (H) 06/03/2018 04:32 AM HEMOGLOBIN 11.6 (L) 06/03/2018 04:32 AM HEMATOCRIT 36.2 06/03/2018 04:32 AM PLATELETS 265 06/03/2018 04:32 AM SODIUM 139 06/04/2018 04:40 AM CHLORIDE 101 06/04/2018 04:40 AM POTASSIUM 3.7 06/04/2018 04:40 AM CO2 26 06/04/2018 04:40 AM BUN 8 06/04/2018 04:40 AM CREATININE 0.57 06/04/2018 04:40 AM GLUCOSE 153 (H) 06/04/2018 04:40 AM INR 1.1 05/18/2018 09:14 AM AST 24 06/04/2018 04:40 AM ALT 22 06/04/2018 04:40 AM CRP 1.9 06/03/2018 04:32 AM Discharge Exam: BP 124/78 (Patient Position (BP): Supine) Pulse 68 Temp 98.2 ??F (36.8 ??C) (Oral) Resp 9 Ht 5' 5 (1.651 m) Wt 90.5 kg (199 lb 8 oz) SpO2 94% BMI 33.20 kg/m?? Last documented weight: Weight: 90.5 kg (199 lb 8 oz) (06/03/18 0104) Physical Exam: General alert, cooperative, no distress, appears stated age Lungs clear to auscultation bilaterally Heart regular rate and rhythm, S1, S2 normal, no murmur, click, rub or gallop Abdomen soft, tenderness over epigastrium on palpation, without masses or organomegaly Extremities Normal, no edema Skin Skin color, texture, turgor normal. No rashes or lesions Discharge Condition: improving. Follow-up: You must follow up with Guerrero Middleton PA-C in NO MORE THAN 7 DAYS Signed: Rosalia Thurman PGY3 Department of Internal Medicine Pager [phone] 06/05/2018, 3:51 PM SCRAPER Associated attestation - Jam Kahn MD - 06/05/2018 4:12 PM ICE SCRAPER One of many admissions for chylomicronemia and associated, non-pancreatitis pain symptomatology. Always seems to respond to TG lowering below or around ~500. Has no obvious history of inflammation orelevated lipase to substantiate a pancreatitis diagnosis, and has high narcotic needs, creating less than ideal therapeutic relationships as the management of her condition is largely without objective findings and she does not tolerate/desire non-narcotic interventions. This admission we were ableto avoid pheresis for symptom control, and only used insulin gtt to lower TG levels. She prefers Dilaudid but we used Morphine with success. At some point, but unsure the best avenue to approach, a more comprehensive pain mgmt strategy would be beneficial. It is clear that her diagnosis is atypical, rare enough, and without imaging or labreference for medical team to appreciate how much, if any, of a functional component is at play vs organic. You can definitely have chronic abdominal pain without objective pancreatitis with this condition, so use of those diagnostic factors in isolation will likely continue to present challenges for her care. Obviously, chronic drug therapy for her TG and tight BG control would be most optimal. Im not sure if she has had genetic testing for this condition nor if it would be beneficial to do so and I askedthat she seek genetic counseling in this regard. She states she has one soon with high lipid levelsat a young age. Her symptoms have improved and she is eating well. Will discharge today. Jam Kahn MD documented in this encounter Discharge Instructions * Discharge Instructions* Rosalia Thurman MD - 06/05/2018 3:52 PM ICE SCRAPER Your discharging physician is Jam Kahn MD and may be reached at [phone] for any questions or concerns until you see your doctor. FOLLOW-UP Follow up with Guerrero Middleton PA-C in 1 week(s). Prescriptions given? Yes SIGNS AND SYMPTOMS TO REPORT Contact your health care provider if you experience any of the following symptoms: blood glucose results greater than 350, blood glucose results less than 70, increased dizziness or lightheadedness or increase in pain or any other concerning symptoms. Heart [...] is not relieved by nitroglycerin. Smoking Exposure: [facility] encourages all patients to decrease risks associated with smoking and second hand smoke exposure. If you smoke you are advised to quit. Ask your health care provider for advice if you need assistance to stop smoking. Avoid second-hand smoke exposure and do not let people smoke in your home. Please call [phone], our pulmonary rehabilitation department, to learn more about options to reduce your risks. ACTIVITY Your activity level is: increase activity as tolerated and no smoking. DIET Your diet is: low fat and carbohydrate controlled SCRAPER documented in this encounter Medications at Time of Discharge Medication Sig Dispensed Refills Start Date End Date traZODone (DESYREL) 100 mg tablet Take 100 mg by mouth daily at bedtime . metFORMIN (GLUCOPHAGE) 500 mg tablet Take 500 mg by mouth 2 times daily. 06/05/2018 09/26/2023 metFORMIN (GLUCOPHAGE) 500 mg tablet Take 2 Tablets by mouth 2 times daily with meals. 60 Tablet 06/05/2018 09/15/2020 dicyclomine (BENTYL) 10 mg capsule Take 1 Capsule by mouth 4 times daily. 15 Capsule 06/05/2018 06/18/2018 insulin aspart (NovoLOG) 100 unit/mL injection Inject [...] by mouth 2 times daily . 09/26/2023 [id number] A-Fish Oil [id number] sc-ka-dil-mcg Capsule Take 2 Caplets by mouth 2 [...] as of this encounter Progress Notes * Abhay Weber RN - 06/05/2018 3:36 PM CST Pt rested quietly this shift. Morning triglyceride less than 500 so lantus given and insulin drip stopped. Good appetite. Oral pain medication given throughout shift. VSS. SCRAPER * Angie Garrett MD - 06/04/2018 1:28 PM CST [facility] Adult Progress Note Admit Date: 06/02/2018 Date of Note: 06/04/2018, 1:39 PM LOS: 1 day Plan Active Problems: Chylomicronemia syndrome: - Triglyceride levels of 1009 on admission. -Multiple previous hospitalizations due to suspected acute pancreatitis from hypertriglyceridemia in 2430-2141. Received plasmaphoresis on previous admissions -Patient has normal lipase. However she had normal lipase level with previous episodes of pancreatitis -Continue Clear liquid diet. Advance as tolerated -IVF LR 100ml/hr -Check TGL periodically.TGL in the morning was 628 -Currently on 2.5 U/hr of insulin. Will transition to SC after repeat TGL is <500 -Pain management with norco q4 prn and morphine q6 prn. DM type II: -HBA1c on 05/16/18 was 8 -Hold metformin.Patient takes 28 U Lantus in morning and 38 at night LINUX ADMINISTRATOR.Along with SSI. -Patient is currently on insulin infusion. -Will transition to SC after discontinuing IV insulin to SSI. Chronic/Stable/Resolved Problems: Anxiety: -Continue LINUX ADMINISTRATOR celexa 40 mg, ativan and trazdone Hypothyroidism: -continue Synthroid Smoker: Encouraged smoke cessation Quality/Safety/Core Measures/Disposition Planning: DVT Prophylaxis - Enoxaparin PT POC OT POC Activity Order: Present Activity: in bed (06/04/18 1330) Pettit catheter:absent Current Code Status -Full Code Plan discussed with patient, questions answered. Current Planned Disposition - Dispo: home pending clinical improvement. Subjective Previous history of present illness and review of systems have been reviewed today as documented inthe H&P on 06/02/2018; medications, labs, studies, notes, orders and consults have been reviewed.I have reviewed the notes from admission. Overnight Improvement in abdominal pain. Nausea continues to improve. Toleratig clear liquid diet. Advance as tolerated. Objective BP 110/75 (BP Location: Left arm, Patient Position (BP): Sitting) Pulse 75 Temp 98.5 ??F (36.9 ??C) (Oral) Resp (!) 7 Ht 5' 5 (1.651 m) Wt 90.5 kg (199 lb 8 oz) SpO2 94% BMI 33.20 kg/m?? Temp (24hrs), Av.9 ??F (36.6 ??C), Min:97.5 ??F (36.4 ??C), Max:98.5 ??F (36.9 ??C) Exam: Gen alert, cooperative, no distress, appears stated age Lungs clear to auscultation bilaterally Heart regular rate and rhythm, S1, S2 normal, no murmur, click, rub or gallop Abdomen Soft,mild to moderate LUQ and epigastric tenderness. No rebound tenderness. Bowel sounds normal. No masses, No organomegaly Extremities extremities normal, atraumatic, no cyanosis or edema Mental Status AAOx3 Data: I have reviewed all new labs and studies resulted and pertinent ones are noted below Results for orders placed or performed during the hospital encounter of 06/02/18 (from the past 24 hour(s)) POC GLUCOSE Result Value Ref Range POC GLUCOSE 108 (H) 74 - 99 mg/dL DIRECTOR OF PROGRAM MANAGEMENT NAME EDA ESPARZA POC GLUCOSE Result Value Ref Range POC GLUCOSE 107 (H) 74 - 99 mg/dL DIRECTOR OF PROGRAM MANAGEMENT NAME ALIZE ROBERTS POC GLUCOSE Result Value Ref Range POC GLUCOSE 124 (H) 74 - 99 mg/dL DIRECTOR OF PROGRAM MANAGEMENT NAME ALIZE ROBERTS POC GLUCOSE Result Value Ref Range POC GLUCOSE 115 (H) 74 - 99 mg/dL DIRECTOR OF PROGRAM MANAGEMENT NAME ALIZE ROBERTS TRIGLYCERIDE Result Value Ref Range TRIGLYCERIDE 520 (H) <150 mg/dL POC GLUCOSE Result Value Ref Range POC GLUCOSE 118 (H) 74 - 99 mg/dL DIRECTOR OF PROGRAM MANAGEMENT NAME EDA ESPARZA POC GLUCOSE Result Value Ref Range POC GLUCOSE 170 (H) 74 - 99 mg/dL DIRECTOR OF PROGRAM MANAGEMENT NAME TAMIKO LASSITER POC GLUCOSE Result Value Ref Range POC GLUCOSE 152 (H) 74 - 99 mg/dL DIRECTOR OF PROGRAM MANAGEMENT NAME [facility] POC GLUCOSE Result Value Ref Range POC GLUCOSE 155 (H) 74 - 99 mg/dL DIRECTOR OF PROGRAM MANAGEMENT NAME [facility] POC GLUCOSE Result Value Ref Range POC GLUCOSE 140 (H) 74 - 99 mg/dL DIRECTOR OF PROGRAM MANAGEMENT NAME SABINA LASSITERI POC GLUCOSE Result Value Ref Range POC GLUCOSE 136 (H) 74 - 99 mg/dL DIRECTOR OF PROGRAM MANAGEMENT NAME [facility] POC GLUCOSE Result Value Ref Range POC GLUCOSE 132 (H) 74 - 99 mg/dL DIRECTOR OF PROGRAM MANAGEMENT NAME SABINA LASSITERI POC GLUCOSE Result Value Ref Range POC GLUCOSE 115 (H) 74 - 99 mg/dL DIRECTOR OF PROGRAM MANAGEMENT NAME [facility] POC GLUCOSE Result Value Ref Range POC GLUCOSE 107 (H) 74 - 99 mg/dL DIRECTOR OF PROGRAM MANAGEMENT NAME SABINA LASSITERI POC GLUCOSE Result Value Ref Range POC GLUCOSE 119 (H) 74 - 99 mg/dL DIRECTOR OF PROGRAM MANAGEMENT NAME [facility] POC GLUCOSE Result Value Ref Range POC GLUCOSE 135 (H) 74 - 99 mg/dL DIRECTOR OF PROGRAM MANAGEMENT NAME SABINA LASSITERI COMPREHENSIVE METABOLIC PANEL Result Value Ref Range SODIUM 139 136 - 145 mmol/L POTASSIUM 3.7 3.5 - 5.0 mmol/L CHLORIDE 101 98 - 107 mmol/L CO2 26 22 - 29 mmol/L CALCIUM 8.2 (L) 8.6 - 10.2 mg/dL BUN 8 6 - 20 mg/dL CREATININE 0.57 0.51 - 0.95 mg/dL GLUCOSE 153 (H) 74 - 99 mg/dL TOTAL PROTEIN 5.5 (L) 6.7 - 8.6 g/dL ALBUMIN 3.5 3.5 - 5.2 g/dL BILIRUBIN TOTAL <0.2 (L) 0.3 - 1.2 mg/dL ALKALINE PHOSPHATASE 39 35 - 104 U/L AST 24 <33 U/L ALT 22 <34 U/L GFR >60 >=60 mL/min/1.73 sq meter GFR, >60 >=60 mL/min/1.73 sq meter ANION GAP 12 8 - 16 mmol/L TRIGLYCERIDE Result Value Ref Range TRIGLYCERIDE 628 (H) <150 mg/dL POC GLUCOSE Result Value Ref Range POC GLUCOSE 128 (H) 74 - 99 mg/dL DIRECTOR OF PROGRAM MANAGEMENT NAME PARIS CALDERON POC GLUCOSE Result Value Ref Range POC GLUCOSE 136 (H) 74 - 99 mg/dL DIRECTOR OF PROGRAM MANAGEMENT NAME TAMIKO LASSITER POC GLUCOSE Result Value Ref Range POC GLUCOSE 131 (H) 74 - 99 mg/dL COMMENT, GLU POC Notified RN/MD DIRECTOR OF PROGRAM MANAGEMENT NAME KERRY, JAMIE POC GLUCOSE Result Value Ref Range POC GLUCOSE 135 (H) 74 - 99 mg/dL DIRECTOR OF PROGRAM MANAGEMENT NAME LIBIA HEALY POC GLUCOSE Result Value Ref Range POC GLUCOSE 192 (H) 74 - 99 mg/dL COMMENT, GLU POC Notified RN/MD DIRECTOR OF PROGRAM MANAGEMENT NAME JAMIE PAYNE POC GLUCOSE Result Value Ref Range POC GLUCOSE 203 (H) 74 - 99 mg/dL DIRECTOR OF PROGRAM MANAGEMENT NAME LIBIA HEALY POC GLUCOSE Result Value Ref Range POC GLUCOSE 178 (H) 74 - 99 mg/dL COMMENT, GLU POC Notified RN/MD DIRECTOR OF PROGRAM MANAGEMENT NAME KERRYJAMIE POC GLUCOSE Result Value Ref Range POC GLUCOSE 162 (H) 74 - 99 mg/dL DIRECTOR OF PROGRAM MANAGEMENT NAME LIBIA HEALY More than 30 minutes were spent in the care of this patient today; more than 50% was spent in discussion of expected course of disease, discussion of prognosis, discharge planning, coordination of care and discussion of lab and test results. Angie Garrett MD This patient is covered by internal medicine residents ?? To reach Internal Medicine covered patients: ?? Saturday-Saturday 7 AM- 5 PM: Page [facility] 5 PM-7 AM: Call the livestock auctioneer music intern at [employer] phone [phone]. If no response please page the senior resident at [phone] ?? Saturday and Saturday: 7 AM-12 PM: Page via the [facility] E-List 12 PM-7 AM: Call the livestock auctioneer music intern at [facility] phone [phone]. If no response please page the senior resident at [phone] ?? If no response to the above steps in 10 minutes, please page the attending physician. SCRAPER Associated attestation - Jam Kahn MD - 06/04/2018 2:31 PM ICE SCRAPER [facility] Adult Hospitalist Attending Note I reviewed the medical record including the resident???s or advanced practitioner's note (availableas hyperlink below) on 06/04/2018. I reviewed and confirmed the history, physical findings, laboratory findings, assessment and plan with the resident on rounds. I also performed the critical or santos por tion(s) of the service as documented below, and was directly involved in the management of the patient and supervised the care provided. I have reviewed the physical exam findings in the resident???s or advanced practitioner's note; my notable physical exam findings include: Abdomen-tender to palpitation midepigastric I have reviewed the labs that were obtained over the last 24 hours. Notable amendments to the assessment and plan include: Chylomicronemia syndrome -challenging diagnosis given lack of pure clinical objective evidence of inflammatory condition on this and other hospitalizations. Always seem to coincide with high TG state, but unclear her compliance level outpatient. CRP low, no lipase elevation, etc and these are historically not/never elevated. However this can happen inside this syndrome. No imaging this admission.Has done well with pheresis in the past to get TG down. Upper scope done in recent admission (02/2018) with mild chronic gastritis. Will treat as typical of chylomicronemia though her chronic pain management is a particular challenge as she 'demands' dilaudid. More than 25 minutes were spent in the care of this patient today; more than 50% was spent in discussion of expected course of disease, discussion of prognosis, discharge planning, coordination of care and discussion of lab and test results. Jam Kahn MD [facility] Hospitalist * Tamiko Lassiter GN - 06/04/2018 6:08 AM CST Insulin drip continued this shift, titrated per protocol. Morning triglycerides up to 628. Pt complained of intermittent abdominal pain, controlled with Tylenol and Percocet. Patient consistently sleeping throughout shift between care. SBP 85-100s, MAP >65. Dr. Conte notified of low BP. Other VSS, on room air. Pt A&O x4. Will continue to monitor. Aurea Sanchez DO - 06/03/2018 11:48 PM CST CROSS COVER NOTE Paged by RN, notified that patient's blood pressure was 84/54 with repeat 86/52 with MAP of 66. Shewas sleeping at the time. She clarifies with me that she normally runs in the 80s and 90s. She is asymptomatic and on IVF. BP (!) 84/54 (BP Location: Left arm, Patient Position (BP): Lying left side) Pulse 66 Temp 97.6??F (36.4 ??C) (Oral) Resp 8 Ht 5' 5 (1.651 m) Wt 90.5 kg (199 lb 8 oz) SpO2 91% BMI 33.20 kg/m?? Orders : No intervention at this time. Aurea Conte, DO This patient is covered by internal medicine residents ?? To reach Internal Medicine covered patients: ?? Saturday-Saturday 7 AM- 5 PM: Page [facility] the [facility] E[facility]List 5 PM-7 AM: Call the livestock auctioneer music intern at [employer] phone [phone]. If no response please page the senior resident at [phone] ?? Saturday and Saturday: 7 AM-12 PM: Page via the [facility] 12 PM-7 AM: Call the livestock auctioneer music intern at [employer] phone [phone]. If no response please page the senior resident at [phone] ?? If no response to the above steps in 10 minutes, please page the attending physician. Aurea Sanchez DO - 06/03/2018 7:56 PM CST CROSS COVER NOTE Paged by RN, notified that patient had complaints of flushing, itching and eye swelling. Spoke to patient and she gets these symptoms intermittently when she has to take niacin that isn't the ER form. She is currently on niacin bid, I do not believe an ER form is available inpatient. She uses benadryl at home when she has these symptoms which helps. She denies throat swelling, tongue swelling or difficulty breathing. BP 113/58 (BP Location: Left arm, Patient Position (BP): Supine) Pulse 79 Temp 98.3 ??F (36.8 ??C) (Oral) Resp 15 Ht 5' 5 (1.651 m) Wt 90.5 kg (199 lb 8 oz) SpO2 95% BMI 33.20 kg/m?? Orders : Changed benadryl from q8h prn to q6h prn Aurea Conte, DO This patient is covered by internal medicine residents ?? To reach Internal Medicine covered patients: ?? Saturday-Saturday 7 AM- 5 PM: Page [facility] 5 PM-7 AM: Call the livestock auctioneer music intern at [employer] phone [phone]. If no response please page the senior resident at [phone] ?? Saturday and Saturday: 7 AM-12 PM: Page via the [facility] 12 PM-7 AM: Call the livestock auctioneer music intern at [employer] phone [phone]. If no response please page the senior resident at [phone] ?? If no response to the above steps in 10 minutes, please page the attending physician. SCRAPER * Eda Esparza, CLAU - 06/03/2018 6:52 PM CST Insulin gtt running all shift, BG monitored q1h. Patient c/o nausea and abdominal pain throughout shift, tolerable with PRN medications. Refused to eat for majority of shift due to nausea. Tolerated 2 popsicles w/o N/V this evening. Only out of bed to walk to the bathroom, otherwise slept majority of shift. Afebrile. VSS. Will continue to monitor patient. SCRAPER * Angie Garrett MD - 06/03/2018 1:46 PM CST [facility] Adult Progress Note Admit Date: 06/02/2018 Date of Note: 06/03/2018, 1:46 PM LOS: 0 days Plan Active Problems: Acute pancreatitis: From hypertriglyceridemia -Multiple previous hospitalizations due to acute pancreatitis -Patient has normal lipase. However she had normal lipase level with previous episodes of pancreatitis -Clear liquid diet -IVF LR 100ml/hr -Pain management with norco and morphine Hypertriglyceridemia: -Patient has TGL 1009 -Currently on 2.5 U/hr of insulin. -Check TGL periodically. Repeat TGL today is 654 -Will repeat another level in the evening and discontinue Insulin infusion if TGL is less than 500. DM type II: -HBA1c on 05/16/18 was 8 -Hold metformin.Patient takes 28 U Lantus in morning and 38 at night LINUX ADMINISTRATOR. -Patient is currently on insulin infusion. -Will transition to SC after discontinuing IV insulin to SSI. Chronic/Stable/Resolved Problems: Anxiety: -Continue LINUX ADMINISTRATOR celexa 40 mg, ativan and trazdone Hypothyroidism: -continue Synthroid Smoker: Encouraged smoke cessation Quality/Safety/Core Measures/Disposition Planning: DVT Prophylaxis - Enoxaparin PT POC OT POC Activity Order: Present Activity: up in room;other (see comments) (shower) (06/03/18 1115) Pettit catheter:absent Current Code Status -Full Code Plan discussed with patient, questions answered. Current Planned Disposition - Dispo: home pending clinical improvement. Subjective Previous history of present illness and review of systems have been reviewed today as documented inthe H&P on 06/02/2018; medications, labs, studies, notes, orders and consults have been reviewed.I have reviewed the notes from admission. Overnight Continues to have LUQ and epigastric pain 11/05. Nausea but no episodes of vomiting overnight Objective BP 109/64 (Patient Position (BP): Supine) Pulse 63 Temp 98.2 ??F (36.8 ??C) (Oral) Resp 12 Ht 5' 5 (1.651 m) Wt 90.5 kg (199 lb 8 oz) SpO2 95% BMI 33.20 kg/m?? Temp (24hrs), Av.3 ??F (36.8 ??C), Min:98 ??F (36.7 ??C), Max:98.7 ??F (37.1 ??C) Exam: Gen alert, cooperative, no distress, appears stated age Lungs clear to auscultation bilaterally Heart regular rate and rhythm, S1, S2 normal, no murmur, click, rub or gallop Abdomen soft, Moderate to severe LUQ and epigastric tenderness. No rebound tenderness. Bowel soundsnormal. No masses, No organomegaly Extremities extremities normal, atraumatic, no cyanosis or edema Mental Status AAOx3 Data: I have reviewed all new labs and studies resulted and pertinent ones are noted below Results for orders placed or performed during the hospital encounter of 06/02/18 (from the past 24 hour(s)) CBC WITH DIFFERENTIAL Result Value Ref Range WBC 12.4 (H) 4.0 - 9.8 K/uL RBC 4.17 3.90 - 4.90 M/uL HEMOGLOBIN 12.9 11.8 - 14.8 g/dL HEMATOCRIT 37.1 35.5 - 44.0 % MCV 89.0 82.0 - 99.0 fL MCH 30.9 27.2 - 32.6 pg MCHC 34.8 31.5 - 35.5 g/dL RDW 13.8 11.5 - 14.5 % RDW-STDEV 45.3 37.1 - 48.7 fL PLATELETS 326 140 - 350 K/uL MPV 9.0 (L) 9.3 - 12.4 fL NEUTROPHILS 61 % LYMPHOCYTES 32 % MONOCYTES 5 % EOSINOPHILS 1 % BASOPHILS 1 % IMMATURE GRANULOCYTES 1 % NEUTROPHIL ABSOLUTE 7.55 (H) 1.90 - 7.00 K/uL LYMPHOCYTE ABSOLUTE 4.00 0.70 - 4.50 K/uL MONOCYTE ABSOLUTE 0.58 0.10 - 1.30 K/uL EOSINOPHIL ABSOLUTE 0.13 0.00 - 0.70 K/uL BASOPHILS ABSOLUTE 0.06 0.00 - 0.20 K/uL IMMATURE GRANULOCYTES ABSOLUTE 0.10 (H) 0.00 - 0.03 K/uL COMPREHENSIVE METABOLIC PANEL Result Value Ref Range SODIUM 138 136 - 145 mmol/L POTASSIUM 4.4 3.5 - 5.0 mmol/L CHLORIDE 98 98 - 107 mmol/L CO2 25 22 - 29 mmol/L CALCIUM 10.4 (H) 8.6 - 10.2 mg/dL BUN 11 6 - 20 mg/dL CREATININE 0.58 0.51 - 0.95 mg/dL GLUCOSE 174 (H) 74 - 99 mg/dL TOTAL PROTEIN 7.2 6.7 - 8.6 g/dL ALBUMIN 4.8 3.5 - 5.2 g/dL BILIRUBIN TOTAL <0.2 (L) 0.3 - 1.2 mg/dL ALKALINE PHOSPHATASE 66 35 - 104 U/L AST 22 <33 U/L ALT 19 <34 U/L GFR >60 >=60 mL/min/1.73 sq meter GFR, >60 >=60 mL/min/1.73 sq meter ANION GAP 15 8 - 16 mmol/L LIPASE Result Value Ref Range LIPASE 49 13 - 60 U/L TRIGLYCERIDE Result Value Ref Range TRIGLYCERIDE 1,009 (H) <150 mg/dL URINALYSIS WITH REFLEX MICROSCOPIC Result Value Ref Range COLOR UA Yellow Pale to Dark Yellow CLARITY UA Clear Clear SPECIFIC GRAVITY UA 1.013 1.003 - 1.035 PH UA 7.0 5.0 - 8.0 LEUKOCYTE ESTERASE UA Negative Negative NITRITE UA Negative Negative PROTEIN UA Negative Negative GLUCOSE UA Negative Negative KETONES UA Negative Negative UROBILINOGEN UA Normal <2.0 mg/dL BILIRUBIN UA Negative Negative BLOOD UA Negative Negative POC GLUCOSE Result Value Ref Range POC GLUCOSE 167 (H) 74 - 99 mg/dL DIRECTOR OF PROGRAM MANAGEMENT NAME LOIDA SALINAS POC GLUCOSE Result Value Ref Range POC GLUCOSE 171 (H) 74 - 99 mg/dL DIRECTOR OF PROGRAM MANAGEMENT NAME LUCAS BEASLEY POC GLUCOSE Result Value Ref Range POC GLUCOSE 190 (H) 74 - 99 mg/dL DIRECTOR OF PROGRAM MANAGEMENT NAME BRANDON REGALADON POC GLUCOSE Result Value Ref Range POC GLUCOSE 180 (H) 74 - 99 mg/dL DIRECTOR OF PROGRAM MANAGEMENT NAME BRANDON REGALADON POC GLUCOSE Result Value Ref Range POC GLUCOSE 176 (H) 74 - 99 mg/dL DIRECTOR OF PROGRAM MANAGEMENT NAME JONATHAN REGALADOLYN POC GLUCOSE Result Value Ref Range POC GLUCOSE 158 (H) 74 - 99 mg/dL DIRECTOR OF PROGRAM MANAGEMENT NAME BRANDON REGALADON CBC WITH DIFFERENTIAL Result Value Ref Range WBC 10.0 (H) 4.0 - 9.8 K/uL RBC 3.90 3.90 - 4.90 M/uL HEMOGLOBIN 11.6 (L) 11.8 - 14.8 g/dL HEMATOCRIT 36.2 35.5 - 44.0 % MCV 92.8 82.0 - 99.0 fL MCH 29.7 27.2 - 32.6 pg MCHC 32.0 31.5 - 35.5 g/dL RDW 13.8 11.5 - 14.5 % RDW-STDEV 47.0 37.1 - 48.7 fL PLATELETS 265 140 - 350 K/uL MPV 9.2 (L) 9.3 - 12.4 fL NEUTROPHILS 56 % LYMPHOCYTES 37 % MONOCYTES 5 % EOSINOPHILS 1 % BASOPHILS 0 % IMMATURE GRANULOCYTES 1 % NEUTROPHIL ABSOLUTE 5.56 1.90 - 7.00 K/uL LYMPHOCYTE ABSOLUTE 3.70 0.70 - 4.50 K/uL MONOCYTE ABSOLUTE 0.51 0.10 - 1.30 K/uL EOSINOPHIL ABSOLUTE 0.13 0.00 - 0.70 K/uL BASOPHILS ABSOLUTE 0.04 0.00 - 0.20 K/uL IMMATURE GRANULOCYTES ABSOLUTE 0.07 (H) 0.00 - 0.03 K/uL COMPREHENSIVE METABOLIC PANEL Result Value Ref Range SODIUM 137 136 - 145 mmol/L POTASSIUM 4.1 3.5 - 5.0 mmol/L CHLORIDE 100 98 - 107 mmol/L CO2 26 22 - 29 mmol/L CALCIUM 9.0 8.6 - 10.2 mg/dL BUN 12 6 - 20 mg/dL CREATININE 0.58 0.51 - 0.95 mg/dL GLUCOSE 149 (H) 74 - 99 mg/dL TOTAL PROTEIN 6.3 (L) 6.7 - 8.6 g/dL ALBUMIN 4.2 3.5 - 5.2 g/dL BILIRUBIN TOTAL <0.2 (L) 0.3 - 1.2 mg/dL ALKALINE PHOSPHATASE 52 35 - 104 U/L AST 20 <33 U/L ALT 16 <34 U/L GFR >60 >=60 mL/min/1.73 sq meter GFR, >60 >=60 mL/min/1.73 sq meter ANION GAP 11 8 - 16 mmol/L LIPASE Result Value Ref Range LIPASE 28 13 - 60 U/L TRIGLYCERIDE Result Value Ref Range TRIGLYCERIDE 654 (H) <150 mg/dL C-REACTIVE PROTEIN Result Value Ref Range CRP 1.9 <5.0 mg/L POC GLUCOSE Result Value Ref Range POC GLUCOSE 135 (H) 74 - 99 mg/dL DIRECTOR OF PROGRAM MANAGEMENT NAME JESSICA REGALADO POC GLUCOSE Result Value Ref Range POC GLUCOSE 146 (H) 74 - 99 mg/dL DIRECTOR OF PROGRAM MANAGEMENT NAME JESSICA REGALADO POC GLUCOSE Result Value Ref Range POC GLUCOSE 134 (H) 74 - 99 mg/dL DIRECTOR OF PROGRAM MANAGEMENT NAME JESSICA REGALADO POC GLUCOSE Result Value Ref Range POC GLUCOSE 136 (H) 74 - 99 mg/dL DIRECTOR OF PROGRAM MANAGEMENT NAME YULIANA GAFFNEY POC GLUCOSE Result Value Ref Range POC GLUCOSE 130 (H) 74 - 99 mg/dL DIRECTOR OF PROGRAM MANAGEMENT NAME EDA ESPARZA POC GLUCOSE Result Value Ref Range POC GLUCOSE 134 (H) 74 - 99 mg/dL DIRECTOR OF PROGRAM MANAGEMENT NAME EDA ESPARZA POC GLUCOSE Result Value Ref Range POC GLUCOSE 152 (H) 74 - 99 mg/dL DIRECTOR OF PROGRAM MANAGEMENT NAME ALIZE ROBERTS POC GLUCOSE Result Value Ref Range POC GLUCOSE 131 (H) 74 - 99 mg/dL DIRECTOR OF PROGRAM MANAGEMENT NAME ALIZE ROBERTS POC GLUCOSE Result Value Ref Range POC GLUCOSE 116 (H) 74 - 99 mg/dL DIRECTOR OF PROGRAM MANAGEMENT NAME EDA ESPARZA More than 30 minutes were spent in the care of this patient today; more than 50% was spent in discussion of expected course of disease, discussion of prognosis, discharge planning, coordination of care and discussion of lab and test results. Angie Garrett MD This patient is covered by internal medicine residents ?? To reach Internal Medicine covered patients: ?? Saturday-Saturday 7 AM- 5 PM: Page via the [facility] E-List 5 PM-7 AM: Call the livestock auctioneer music intern at [employer] phone [phone]. If no response please page the senior resident at [phone] ?? Saturday and Saturday: 7 AM-12 PM: Page via the [facility] E-List 12 PM-7 AM: Call the livestock auctioneer music intern at [employer] phone [phone]. If no response please page the senior resident at [phone] ?? If no response to the above steps in 10 minutes, please page the attending physician. SCRAPER Associated attestation - Jam Kahn MD - 06/03/2018 2:40 PM ICE SCRAPER [facility] Adult Hospitalist Attending Note I reviewed the medical record including the resident???s or advanced practitioner's note (availableas hyperlink below) on 06/03/2018. I reviewed and confirmed the history, physical findings, laboratory findings, assessment and plan with the resident on rounds. I also performed the critical or santos por tion(s) of the service as documented below, and was directly involved in the management of the patient and supervised the care provided. I have reviewed the physical exam findings in the resident???s or advanced practitioner's note; my notable physical exam findings include: Abdomen-tender to palpitation midepigastric I have reviewed the labs that were obtained over the last 24 hours. Notable amendments to the assessment and plan include: Abdominal pain -challenging diagnosis given lack of pure clinical objective evidence of inflammatory condition on this and other hospitalizations. Always seem to coincide with high TG state, but unclear her compliance level outpatient. CRP low, no lipase elevation, etc and these are historically not /never elevated. No imaging this admission. Has done well with pheresis in the past to get TG down.Upper scope done in recent admission (02/2018) with mild chronic gastritis. Will treat as typical of pancreatitis but again unsure if this is supported by any objective criteria. More than 45 minutes were spent in the care of this patient today; more than 50% was spent in discussion of expected course of disease, discussion of prognosis, discharge planning, coordination of care and discussion of lab and test results. Jam Kahn MD [facility] Hospitalist documented in this encounter H&P Notes * Mc Stinson MD - 06/02/2018 11:05 PM CST [facility] Adult Hospitalist History and Physical Mc Stinson MD Hospitalist 06/02/2018 Patient's Primary Care Physician: Guerrero Middleton PA-C , Name: Casandra Jones Age: 42 y.o. Sex: female Chief Complaint: abd pain, History of Present Illness I obtained the history from patient, the chart, ED notes and I reviewed the available old records also. Casandra Jones is a 42 y.o. female Patient comes with abd. Nausea, nausea, vomiting. 3 days h/o worsening , acute on chronic abdominal pain, severe, sharp, stabbing on top pf her chronic epigastric, LUQ pressure type pain. Reports chronic, daily abdominal pain, pressure in the epigastrium, LUQ, which she is having day and night, associated with nausea; takes NSAID, Percocet for pain PRN; She states she was dg. with pancreatitis in June 2016, due to hypertriglyeridemia; since then she has been admitted several times, last time 2 weeks ago, has had apheresis for hyperTG few times, hadbeen on insulin drip for high TG levels. She states she was dg. With necrotizing pancreatitis and pseudocyst at [facility]; reports GI evaluation, sounds like EUS, which was normal , in 2017; She states her pancreas gets always inflamed , gets admitted, lipase-amialse ALWAYS normal; she is getting iv narcotics. When I told her that she does not meet criteria for acute pancreatitis, she started crying; I did not intend to start insulin drip, she insisted on doing it for her hyperTG. She asked for iv narcotics. HOME MEDICATIONS reviewed and updated; PROBLEM LIST Active Hospital Problems Diagnosis ??? Abdominal pain -- acute on chronic, daily abdominal pain ( she states she has pain day and night ) -- she has history of pancreatitis per patient and per records , although never had an elevated lipase ( amylase can be falsely low in hyperTG) -- no evidence of pancreatitis today and she has NEVER had an abnormal lipase , not even during thevery first episode in june 2016 , no grossly abnormal CT in [facility] either -- last CT abdomen 2 months ago revealed normal pancreas and some vague , mild stringy infiltration of the fat surrounding the pancreatic tail with a very mild amount of fluid in the adjacent abdomen ( no evidence of chronic pancreatitis ofpseudocyst on last CT , no scarring,no calcifications or fibrosis , although she reports necrotizing pancreatitis and pseudocyst in the past ( ? ) ) -- I can't call this pancreatitis until she has totally normal lipase level and CT does not show mirza evidence of pancreatitis -- GI evaluation would be reasonable to clarify the nature of her chronic, daily abdominal pain with nausea and acute flare-ups with normal lipase in the setting of elevated TG (which can cause acutepancreatitis if > 1,000 ) -- she started crying when I questioned if she really has pancreatitis at this time and questioned the need for iv morphine -- pt.was demanding iv narcotics, will order low dose 2 mg morphine every 6h PRN ??? Hypertriglyceridemia -- she is asking for insulin drip, she is afraid of rising TG and damagingher pancreas -- cont. meds for dyslipidemia ??? History of plasmapheresis ??? Type 2 diabetes mellitus without complication, with long-term current use of insulin -- -- ACCUchecks, Insulin per sliding scale -- hold oral DM medications -- hyperglycemia pathway -- she will be on insulin drip for hyperTG, per her request Code status: FULL Estimated lenght of stay: > 24 hours Disposition: home? Exam Vitals: 06/02/18 1809 06/02/18 2200 BP: 133/85 139/86 BP Location: Right arm Left arm Patient Position (BP): Sitting Sitting Resp: 20 16 Temp: 98.7 ??F (37.1 ??C) 98.2 ??F (36.8 ??C) TempSrc: Oral Oral SpO2: 100% 100% Weight: 90.7 kg (200 lb) Height: 5' 5 (1.651 m) GENERAL: no acute distress SKIN: no rash Head:normocephalic, atraumatic Eyes:conjunctivae,corneas clear, PERRL,EOMI Ears:external ear canals clear Throat: clear, moist mucosa NECK: supple , no JVD LUNGS: clear to auscultation bilaterally HEART: no murmur , no rubs, no gallops ABDOMEN: soft, EPIGASTRIC AND LUQ tenderness , no guarding or rebound , [...] Cardiac: No CP, no SOB, GI: no constipation : No dysuria, no frequency [...] Adhesive Tape-Silicones Hives Social History Occupational History ??? [employer] Social History Main Topics ??? Smoking [...] HYSTERECTOMY partial due to endometriosis 2006 ??? [place] ESOPHAGOGASTRODUODENOSCOPY TRANSORAL DIAGNOSTIC N/A 03/08/2018 ESOPHAGOGASTRODUODENOSCOPY performed by Ceasar Vega MD at [facility] GI [facility] Family History Problem Relation Age of Onset ??? Diabetes Father ??? High Cholesterol Father ??? Hypertension Father ??? Stroke Mother ??? Heart Disease Mother ??? Thyroid Disease Mother ??? High Cholesterol Mother ??? Heart Disease Maternal Grandmother ??? Diabetes Maternal Grandmother ??? Diabetes Paternal Grandmother ??? Diabetes Mother SCRAPER documented in this encounter ED Notes * Gabi Holland RN - 06/03/2018 12:27 AM CST Pt denies needs and concerns at this time. VSS. RR even and non-labored. Call light in reach. Pt medicated per JUN. Patient/family has been informed about benefits and any potential clinically significant side effects or other concerns regarding the administration of the drug they have just been given. Report called to CLAU gee. All questions answered SCRAPER * Gabi Holland RN - 06/02/2018 10:19 PM CST Hospitalist at bedside. SCRAPER * Gabi Holland RN - 06/02/2018 9:02 PM CST MD at bedside with update on plan of care. SCRAPER * Gabi Holland RN - 06/02/2018 8:00 PM CST 42 y.o F to ED with c/o LUQ pain that radiates to back x3 days. Pt rates pain 12/06.Pt reports hx ofpancreatitis last admitted 05/16/18-05/21/18. +Nausea/vomiting/diarrhea/headache. Denies fever. Pt reports taking percocet and Zofran w/o relief. VSS. RR even and unlabored. Pt speaking in complete sent ences. Pt A&O x4. Family at bedside. Call light in reach. SCRAPER * Gabi Holland RN - 06/02/2018 7:58 PM CST MD at bedside with primary assessment SCRAPER * Jessica Silvestre RN - 06/02/2018 6:46 PM CST [facility] ED Adult Female Abdominal Pain Protocol [facility] Approved by: [facility] - Medical Executive Committee Approval Date: ORDERS ARE ENTERED ???PER PROTOCOL?? Nursing Orders: o Insert peripheral IV (excessive vomiting or diarrhea) Laboratory Orders: o CBC with diff ([id number]) o CMP (LAB17) o If female of childbearing age: POC Urine HCG (POC7) or HCG Qualitative urine ([id number]) if sending to lab o Urinalysis with Reflex Microscopy ([id number]) o Serum HCG (if knowingly ) ([id number]) o Obtain serum lipase (LAB99) if upper abdominal pain o Draw and send extra tubes to lab (ED hold) ([id number]) Diagnostic Test Orders: o If RUQ pain, [...] NPO until otherwise ordered by attending physician SCRAPER * Ceasar Kelley MD - 06/02/2018 6:03 PM CST HISTORY OF PRESENT ILLNESS Casandra Jones, a 42 y.o. female presents to the ED with a Chief Complaint of Abdominal Pain Subjective 7:52 PM: Casandra Jones is a 42 y.o. female with a history of DM2, HLD, GERD, PCOS, pancreatitis whopresents with worsening LUQ abdominal pain for 3 days. She has associated n/v/d. Taking Percocet and Zofran without relief. Recently admitted here from 05/16-05/21 for pancreatitis. Patient states she has not had complete symptomatic relief since discharge. Severity: moderate Duration: 3 days Progression: worsening Quality: n/a Radiation: n/a Associated symptoms: see above Primary Care Doctor: Guerrero Middleton PA-C History provided by: The patient Arrived by: Private vehicle REVIEW OF SYSTEMS Review of Systems Constitutional: Negative for chills and fever. HENT: Negative for congestion, hearing loss and sore throat. Eyes: Negative for visual disturbance. Respiratory: Negative for cough. Cardiovascular: Negative for chest pain. Gastrointestinal: Positive for abdominal pain (LUQ), diarrhea, nausea and vomiting. Genitourinary: Negative for dysuria and frequency. Musculoskeletal: Negative for myalgias. Skin: Negative for rash. Neurological: Negative for headaches. All other systems reviewed and [...] Hyponatremia; GERD (gastroesophageal reflux disease); Abdominal pain; Pancreatitis, recurrent; Hypertriglyceridemia; Depression with anxiety; History of plasmapheresis; and Acute pancreatitis on her problem list. ALLERGIES Green pepper; Adhesive; Aspartame; and Adhesive tape-silicones HOME MEDICATIONS Patient's Home Medications Current Home Medications [id number] 60-12-38 CAPSULE CITALOPRAM (CELEXA) 40 MG TABLET FENOFIBRATE (LOFIBRA) 160 MG ORAL TAB INSULIN ASPART (NOVOLOG) 100 UNIT/ML INJECTION INSULIN GLARGINE (LANTUS) 100 UNIT/ML INJECTION LEVOTHYROXINE 200 MCG TABLET LORAZEPAM (ATIVAN) 1 MG TABLET METFORMIN (GLUCOPHAGE) 500 MG TABLET NIACIN (NIACOR) 500 MG TABLET [id number] OIL [id number] CAPSULE ONDANSETRON (ZOFRAN ODT) 4 MG TABLET, RAPID DISSOLVE OXYCODONE-ACETAMINOPHEN (PERCOCET) 5-325 MG TABLET PANTOPRAZOLE (PROTONIX) 40 MG TABLET, DELAYED RELEASE (E.C.) ROSUVASTATIN (CRESTOR) 20 MG TABLET SPIRONOLACTONE (ALDACTONE) 25 MG TABLET TRAZODONE (DESYREL) 100 MG TABLET Medications Modified during this Encounter Medications Discontinued during this Encounter INSULIN ASPART PROTAMINE-ASPART (NOVOLOG MIX 70-30) 100 UNIT/ML (70-30) PEN SYRINGE Objective PHYSICAL EXAM INITIAL VS BP: 133/85 (06/02/181808), Heart Rate: 97 bpm (06/02/181808), Resp: 20 (06/02/181808), Pulse: (not recorded), Temp: 98.7 ??F (37.1 ??C) (06/02/181808), Temp src: Oral (06/02/181808), SpO2: 100 %(06/02/181808), Height: 5' 5 (165.1 cm) (06/02/181808), Weight: 90.7 kg (200 lb) (06/02/181808), BMI (Calculated): 33.28 (06/02/18 1809) No LMP recorded. Patient has had a hysterectomy. Physical Exam Constitutional: She is oriented to person, place, and time. Appears uncomfortable HENT: Head: Normocephalic and atraumatic. Mouth/Throat: Oropharynx is clear and moist. Eyes: Pupils are equal, round, and reactive to light. Conjunctivae are normal. Neck: Neck supple. No tracheal deviation present. Cardiovascular: Normal rate, regular rhythm and intact distal pulses. Exam reveals no gallop and nofriction rub. No murmur heard. Pulmonary/Chest: Effort normal. No respiratory distress. She has no wheezes. She has no rales. Abdominal: Soft. Bowel sounds are normal. She exhibits no distension and no mass. There is tenderness in the epigastric area and left upper quadrant. There is no rebound and no guarding. Musculoskeletal: Normal range of motion. She exhibits no edema or tenderness. Neurological: She is alert and oriented to person, place, and time. Coordination normal. Moves all extremities equally and follows commands without gross deficit Skin: Skin is warm and dry. No rash noted. Nursing note and vitals reviewed. DIAGNOSTICS LAB: CBC WITH DIFFERENTIAL - Abnormal Result Value WBC 12.4 (*) RBC 4.17 HEMOGLOBIN 12.9 HEMATOCRIT 37.1 MCV 89.0 MCH 30.9 MCHC 34.8 RDW 13.8 RDW-STDEV 45.3 PLATELETS 326 MPV 9.0 (*) NEUTROPHILS 61 LYMPHOCYTES 32 MONOCYTES 5 EOSINOPHILS 1 BASOPHILS 1 IMMATURE GRANULOCYTES 1 NEUTROPHIL ABSOLUTE 7.55 (*) LYMPHOCYTE ABSOLUTE 4.00 MONOCYTE ABSOLUTE 0.58 EOSINOPHIL ABSOLUTE 0.13 BASOPHILS ABSOLUTE 0.06 IMMATURE GRANULOCYTES ABSOLUTE 0.10 (*) COMPREHENSIVE METABOLIC PANEL - Abnormal SODIUM 138 POTASSIUM 4.4 CHLORIDE 98 CO2 25 CALCIUM 10.4 (*) BUN 11 CREATININE 0.58 GLUCOSE 174 (*) TOTAL PROTEIN 7.2 ALBUMIN 4.8 BILIRUBIN TOTAL <0.2 (*) ALKALINE PHOSPHATASE 66 AST 22 ALT 19 GFR >60 GFR, >60 ANION GAP 15 TRIGLYCERIDE - Abnormal TRIGLYCERIDE 1,009 (*) POC GLUCOSE - Abnormal POC GLUCOSE 167 (*) DIRECTOR OF PROGRAM MANAGEMENT NAME LOIDA SALINAS LIPASE - Normal LIPASE 49 URINALYSIS WITH REFLEX MICROSCOPIC - Normal COLOR UA Yellow CLARITY UA Clear SPECIFIC GRAVITY UA 1.013 PH UA 7.0 LEUKOCYTE ESTERASE UA Negative NITRITE UA Negative PROTEIN UA Negative GLUCOSE UA Negative KETONES UA Negative UROBILINOGEN UA Normal BILIRUBIN UA Negative BLOOD UA Negative RADIOLOGY: No orders to display No orders to display PROCEDURES Procedures MEDICAL DECISION MAKING AND PLAN OF CARE 8:59 PM: Discussed the patient's medical history, history of present illness, and current findings with Dr. Wyman (covering for Dr. Mayer) 9:00 PM: Discussed with Dr. Stinson ([facility] Hospitalist) who will admit to Medical floor. 9:02 PM: I have informed pt of results and plan for admission to the hospital. Pt agrees with plan and voices their understanding. ED provider and ED nurse verbally discussed patient plan of care at this time. MDM Summary Statement: Presents with vomiting, upper abdominal pain. History of similar related to pancreatitis from high triglycerides. Triglycerides just over 1000 here. Symptoms are persistent. Spoke with cardiology andhospitalist will admit for symptom control. Can assess for possible lipophoresis tomorrow. I have reviewed previous: notes and labs I have reviewed current: labs I have reviewed nursing notes related to past medical history, social history, and review of systems and agree, unless otherwise noted. Consults: hospitalist and other Name of hospitalist: Dr. Stinson Name of other provider: Dr. Wyman Medications Administered During the ED Stay from 06/02/2018 1803 to 06/03/2018 0008 Date/Time Order Dose Route Action 06/02/2018 1852 ondansetron (ZOFRAN) 4 mg/2 mL injection 4 mg 4 mg IV Given 06/02/20182104 sodium chloride 0.9% bolus solution 1,000 mL 0 mL IV Stopped 06/02/20182004 sodium chloride 0.9% bolus solution 1,000 mL 1,000 mL IV New Bag 06/02/2018 2007 morphine injection 6 mg 6 mg IV Given 06/02/20182007 ondansetron (ZOFRAN) 4 mg/2 mL injection 4 mg 4 mg IV Given 06/02/20182121 morphine injection 6 mg 6 mg IV Given . New Prescriptions for this Encounter LAST VS BP: 139/86 (06/02/182199), Heart Rate: 76 bpm (06/02/182199), Resp: 16 (06/02/182199), Pulse: (not recorded), Temp: 98.2 ??F (36.8 ??C) (06/02/182199), Temp src: Oral (06/02/182199), SpO2: 100 %(06/02/182199) CLINICAL IMPRESSION Final diagnoses: [R11.10] Recurrent vomiting (Primary) [E78.1] Hypertriglyceridemia DISPOSITION, EDUCATION AND MEDICATION RECONCILIATION Medications reconciled. See after visit summary for patient education on discharged patients. ED Disposition ED Disposition Condition User Date/Time Comment Admit Stable Ceasar Kelley MD SatJun 02, 2018 9:06 PM ATTESTATION STATEMENTS This note has been prepared by Twyla Domingo acting as a scribe for Dr. Ceasar Kelley on 06/02/2018 at 9:01 PM. The scribe's documentation has been prepared under my direction and personally reviewed by me, Ceasar Kelley MD , in its entirety on 06/03/18 at 12:08 AM. I confirm that the note above accurately reflects all work, treatment, procedures, and medical decision making performed by me. SCRAPER documented in this encounter Miscellaneous Notes * Care Plan - Loc Healy RN - 06/04/2018 7:34 PM CST Casandra has done well this shift. Alert and orientated x4,VSS, afebrile. Multiple PRN's given for pain, See MAR. Patient continues to ask for pain meds, despite having been asleep prior to asking for more IV meds. Insulin drip maintained this shift, See MAR for changes. Lungs clear, on room air. NSR on alarm security or surveillance monitor. Blood pressures soft. aware, instructed this nurse to give IV meds only if BP 90/70. Patient diet advanced per orders to diabetic diet. Patient eating very well. Patient states that she is so hungry, and ate 100% of her meals. 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 Voiding per BR, ambulating without difficulty. IV dressings changed today. Will continue to monitor. Report given to CLAU Carlson SCRAPER * Care Plan - Vika Ledbetter RN - 06/03/2018 12:14 PM CST Initial Discharge Planning Assessment completed. Introductory Care Management letter given. Care Management visited with patient, and discussed Care Management role and discharge planning. Prior to admission, patient's functional level IND with ADL's and ambulation Prior to admission, patient resided at 2 sod home/ 2 steps to enter, lives with and 15 y/o son Prior to admission, patient received assistance with nothing, and had no services in home. Durable medical equipment at home includes none. Patient has had a stay at an acute care hospital in the last 30 days. [place], patient does not need a PASARR screening to be started (ie, prior psych admission or intensive services, MR/DD diagnosis prior to the age of 22). Readmission Risk (patient becomes high risk with a score of 8 or greater) 5 Total Score 5 Prior Hospitalizations Primary Emergency Contact: BryanJosé Miguel hill [phone] PCP verified as Guerrero Middleton PA-C. Patient's insurance verified as Payor: [employer] / Plan: ALL SAVE[employer]ro CHOICE / Product Type: Commercial / [facility] [address] [place] [address] assessed, CDPA as no apparent d/c needs at time of discharge. Plan to return to home at time of discharge. No DME needed. Discussed discharge goals and possible discharge needs including .follow up MD appoints as written Care Management contact information provided. Care Management will continue to follow and assist asneeded. RAFFY Begum,RN, [facility] [employer] [phone] SCRAPER * Care Plan - Humaira Regalado RN - 06/03/2018 2:07 AM CST Undress and Assess performed by: Humaira OLGUIN and [facility] Admission or upon transfer to: [facility] 4219 ~~~~~~~~~~~~~~~~~~~~~~~~~~~~ Is the patient a paraplegic/quadriplegic? Does the patient have new purple/sissy/dark red over bony prominences? Does the patient have an ostomy? Is the length of stay >2 weeks? ~If ANY answer 'yes'- please consult~ Patient does not have skin breakdown. Wound care consult was not initiated. Location/ Description of breakdown: Apply Protective Dressings to Sacrum and Heels (Mepilex) as per Pathway Patient arrived to this room with the following belongings/valuables: phone, clothing, shoes, toiletries Patient arrived to this room with the following medical equipment/devices (ie: insulin pump, home CPAP, walker): n/a All Jewelry removed from patient No (Wedding ring on finger) Disposition of belongings/valuables: in room 4219 SCRAPER documented in this encounter Plan of Treatment Upcoming Encounters Date Type Department Care Team (Late st Contact Info) Description 09/14/2024 3:00 PM CDT Office Visit [facility] Heart and Vascular - [facility] [address] [place] [address] Marlys Mayer MD [address] [place], [place] [id number] documented as of this encounter Procedures Procedure Name Priority Date/Time Associated Diagnosis Comments POC GLUCOSE Routine 06/05/2018 11:54 AM ICE SCRAPER POC GLUCOSE Routine 06/05/2018 10:59 AM ICE SCRAPER POC GLUCOSE Routine 06/05/2018 9:57 AM ICE SCRAPER POC GLUCOSE Routine 06/05/2018 8:30 AM ICE SCRAPER POC GLUCOSE Routine 06/05/2018 6:37 AM ICE SCRAPER POC GLUCOSE Routine 06/05/2018 6:07 AM ICE SCRAPER TRIGLYCERIDE Routine 06/05/2018 5:41 AM ICE SCRAPER POC GLUCOSE Routine 06/05/2018 5:27 AM ICE SCRAPER POC GLUCOSE Routine 06/05/2018 3:52 AM ICE SCRAPER POC GLUCOSE Routine 06/05/2018 3:31 AM ICE SCRAPER POC GLUCOSE Routine 06/05/2018 2:45 AM ICE SCRAPER POC GLUCOSE Routine 06/05/2018 1:29 AM ICE SCRAPER POC GLUCOSE Routine 06/05/2018 12:39 AM ICE SCRAPER POC GLUCOSE Routine 06/04/2018 11:28 PM ICE SCRAPER POC GLUCOSE Routine 06/04/2018 10:31 PM ICE SCRAPER POC GLUCOSE Routine 06/04/2018 9:36 PM ICE SCRAPER POC GLUCOSE Routine 06/04/2018 8:46 PM ICE SCRAPER POC GLUCOSE Routine 06/04/2018 7:30 PM ICE SCRAPER POC GLUCOSE Routine 06/04/2018 5:37 PM ICE SCRAPER TRIGLYCERIDE Routine 06/04/2018 4:57 PM ICE SCRAPER POC GLUCOSE Routine 06/04/2018 4:46 PM ICE SCRAPER POC GLUCOSE Routine 06/04/2018 3:45 PM ICE SCRAPER POC GLUCOSE Routine 06/04/2018 2:31 PM ICE SCRAPER POC GLUCOSE Routine 06/04/2018 1:39 PM ICE SCRAPER POC GLUCOSE Routine 06/04/2018 12:46 PM ICE SCRAPER POC GLUCOSE Routine 06/04/2018 11:40 AM ICE SCRAPER POC GLUCOSE Routine 06/04/2018 10:50 AM ICE SCRAPER POC GLUCOSE Routine 06/04/2018 10:03 AM ICE SCRAPER POC GLUCOSE Routine 06/04/2018 9:00 AM ICE SCRAPER POC GLUCOSE Routine 06/04/2018 7:29 AM ICE SCRAPER POC GLUCOSE Routine 06/04/2018 6:29 AM ICE SCRAPER POC GLUCOSE Routine 06/04/2018 5:42 AM ICE SCRAPER TRIGLYCERIDE Routine 06/04/2018 4:40 AM ICE SCRAPER COMPREHENSIVE METABOLIC PANEL Routine 06/04/2018 4:40 AM ICE SCRAPER POC GLUCOSE Routine 06/04/2018 4:35 AM ICE SCRAPER POC GLUCOSE Routine 06/04/2018 3:32 AM ICE SCRAPER POC GLUCOSE Routine 06/04/2018 2:27 AM ICE SCRAPER POC GLUCOSE Routine 06/04/2018 1:23 AM ICE SCRAPER POC GLUCOSE Routine 06/04/2018 12:31 AM ICE SCRAPER POC GLUCOSE Routine 06/03/2018 11:31 PM ICE SCRAPER POC GLUCOSE Routine 06/03/2018 10:29 PM ICE SCRAPER POC GLUCOSE Routine 06/03/2018 9:31 PM ICE SCRAPER POC GLUCOSE Routine 06/03/2018 8:25 PM ICE SCRAPER POC GLUCOSE Routine 06/03/2018 7:36 PM ICE SCRAPER POC GLUCOSE Routine 06/03/2018 6:28 PM ICE SCRAPER TRIGLYCERIDE Routine 06/03/2018 5:29 PM ICE SCRAPER POC GLUCOSE Routine 06/03/2018 5:27 PM ICE SCRAPER POC GLUCOSE Routine 06/03/2018 4:32 PM ICE SCRAPER POC GLUCOSE Routine 06/03/2018 3:31 PM ICE SCRAPER POC GLUCOSE Routine 06/03/2018 2:37 PM ICE SCRAPER POC GLUCOSE Routine 06/03/2018 1:32 PM ICE SCRAPER POC GLUCOSE Routine 06/03/2018 12:33 PM ICE SCRAPER POC GLUCOSE Routine 06/03/2018 11:34 AM ICE SCRAPER POC GLUCOSE Routine 06/03/2018 10:44 AM ICE SCRAPER POC GLUCOSE Routine 06/03/2018 9:41 AM ICE SCRAPER POC GLUCOSE Routine 06/03/2018 8:29 AM ICE SCRAPER POC GLUCOSE Routine 06/03/2018 7:17 AM ICE SCRAPER POC GLUCOSE Routine 06/03/2018 6:25 AM ICE SCRAPER POC GLUCOSE Routine 06/03/2018 5:20 AM ICE SCRAPER CBC WITH DIFFERENTIAL Routine 06/03/2018 4:32 AM ICE SCRAPER C-REACTIVE PROTEIN Routine 06/03/2018 4: 32 AM ICE SCRAPER TRIGLYCERIDE Routine 06/03/2018 4:32 AM ICE SCRAPER LIPASE Routine 06/03/2018 4:32 AM ICE SCRAPER COMPREHENSIVE METABOLIC PANEL Routine 06/03/2018 4:32 AM ICE SCRAPER POC GLUCOSE Routine 06/03/2018 4:20 AM ICE SCRAPER POC GLUCOSE Routine 06/03/2018 3:21 AM ICE SCRAPER POC GLUCOSE Routine 06/03/2018 2:17 AM ICE SCRAPER POC GLUCOSE Routine 06/03/2018 1:21 AM ICE SCRAPER POC GLUCOSE Stat 06/03/2018 12:14 AM ICE SCRAPER POC GLUCOSE Stat 06/02/2018 11:07 PM ICE SCRAPER URINALYSIS W/REFLEX MICROSCOPIC Stat 06/02/2018 7:11 PM ICE SCRAPER CBC WITH DIFFERENTIAL Stat 06/02/2018 6:50 PM ICE SCRAPER TRIGLYCERIDE Stat 06/02/2018 6:50 PM ICE SCRAPER LIPASE Stat 06/02/2018 6:50 PM ICE SCRAPER COMPREHENSIVE METABOLIC PANEL Stat 06/02/2018 6:50 PM ICE SCRAPER documented in this encounter Results * POC GLUCOSE (06/05/2018 11:54 AM ICE SCRAPER) GLUCOSE POC 90 74 - 99 mg/dL 06/05/2018 12:08 PM ICE SCRAPER [facility] - [facility] DIRECTOR OF PROGRAM MANAGEMENT NAME POC LUCIEN (pn-UNVERF EHRT )ABHAY 06/05/2018 12:08 PM ICE SCRAPER [facility] Whole blood specimen (specimen) 06/05/2018 11:54 AM ICE SCRAPER 06/05/2018 12:08 PM ICE SCRAPER Jam Kahn MD POINT OF CARE TESTIN G [facility]# [id number] [address] [facility] [place] [address] * POC GLUCOSE (06/05/2018 10:59 AM ICE SCRAPER) GLUCOSE POC 84 74 - 99 mg/dL 06/05/2018 11:11 AM ICE SCRAPER [facility] COMMENT, GLU POC Notified RN/MD 06/05/2018 11:11 AM ICE SCRAPER [facility] DIRECTOR OF PROGRAM MANAGEMENT NAME POC JAMIE PAYNE 06/05/2018 11:11 AM ICE SCRAPER [facility] Whole blood specimen (specimen) 06/05/2018 10:59 AM ICE SCRAPER 06/05/2018 11:11 AM ICE SCRAPER Jam Kahn MD POINT OF CARE TESTJERONIMO G [facility] [id number] [address] [place] [address] * (ABNORMAL) POC GLUCOSE (06/05/2018 9:57 AM ICE SCRAPER) GLUCOSE POC 110(H) 74 - 99 mg/dL 06/05/2018 10:30 AM ICE SCRAPER [facility] DIRECTOR OF PROGRAM MANAGEMENT NAME POC NULL (pn-UNVERF EHRT ), ABHAY 06/05/2018 10:30 AM ICE SCRAPER [facility] Whole blood specimen (specimen) 06/05/2018 9:57 AM ICE SCRAPER 06/05/2018 10:30 AM ICE SCRAPER Jam Kahn MD POINT OF CARE TESTJERONIMO Serrano Performing Organization Address [facility]/ZIP Co de Phone Number [facility]# [id number] [address] [place] [address] * (ABNORMAL) POC GLUCOSE (06/05/2018 8:30 AM ICE SCRAPER) GLUCOSE POC 122(H) 74 - 99 mg/dL 06/05/2018 8:42 AM ICE SCRAPER [facility] COMMENT, GLU POC Notified RN/MD 06/05/2018 8:42 AM ICE SCRAPER [facility] DIRECTOR OF PROGRAM MANAGEMENT NAME POC KERRY, JAMIE 06/05/2018 8:42 AM ICE SCRAPER [facility] Whole blood specimen (specimen) 06/05/2018 8:30 AM ICE SCRAPER 06/05/2018 8:42 AM ICE SCRAPER Jam Kahn MD POINT OF CARE TESTJERONIMO Serrano Performing Organization Address [facility]/ZIP Co de Phone Number [facility]ORY [facility]# [id number] [address] [place] [address] * (ABNORMAL) POC GLUCOSE (06/05/2018 6:37 AM ICE SCRAPER) GLUCOSE POC 135(H) 74 - 99 mg/dL 06/05/2018 6:57 AM ICE SCRAPER [facility] DIRECTOR OF PROGRAM MANAGEMENT NAME YESY BEARDEN 06/05/2018 6:57 AM ICE SCRAPER [facility] SERVICES [facility] Whole blood specimen (specimen) 06/05/2018 6:37 AM ICE SCRAPER 06/05/2018 6:57 AM ICE SCRAPER Jam Kahn MD POINT OF CARE FLY Serrano [facility] [employer] CLVT# [id number] [address] [place] [address] * (ABNORMAL) POC GLUCOSE (06/05/2018 6:07 AM ICE SCRAPER) GLUCOSE POC 130(H) 74 - 99 mg/dL 06/05/2018 6:20 AM ICE SCRAPER [facility] LAB[facility] DIRECTOR OF PROGRAM MANAGEMENT NAME YESY BEARDEN 06/05/2018 6:20 AM [facility] LABORATORY [facility] Whole blood specimen (specimen) 06/05/2018 6:07 AM ICE SCRAPER 06/05/2018 6:20 AM ICE SCRAPER Jam Kahn MD POINT OF BLANCA Serrano [facility] CLVT# [id number] [address] [place] [address] * (ABNORMAL) TRIGLYCERIDE (06/05/2018 5:41 AM ICE SCRAPER) TRIGLYCERIDE 421(H) <150 mg/dL 06/05/2018 6:29 AM ICE SCRAPER [facility] Blood Venipuncture / Unknown 06/05/2018 5:41 AM ICE SCRAPER 06/05/2018 5:47 AM ICE SCRAPER Narrative [facility] - 06/05/2018 6:29 AM ICE SCRAPER TRIGLYCERIDES ? mg/dL Normal ?< 150 Borderline High ?150 - 199 High ? 200 - 499 Very High ? >= 500 Based on AHA/NCEP Guidelines. Jam Kahn MD CHEMISTRY ORDERABLES Performing Organization Address [facility] Phone Number [facility]# [id number] [address] [place] [address] * (ABNORMAL) POC GLUCOSE (06/05/2018 5:27 AM ICE SCRAPER) GLUCOSE POC 140(H) 74 - 99 mg/dL 06/05/2018 5:39 AM [facility] DIRECTOR OF PROGRAM MANAGEMENT NAME POC PARIS CALDERON 06/05/2018 5:39 AM [facility] Whole blood specimen (specimen) 06/05/2018 5:27 AM ICE SCRAPER 06/05/2018 5:39 AM ICE SCRAPER Jam Kahn MD POINT OF CARE FLY Serrano Performing Organization Address [facility] de Phone Number [facility]# [id number] [address] [place] [address] * (ABNORMAL) POC GLUCOSE (06/05/2018 3:52 AM ICE SCRAPER) GLUCOSE POC 121(H) 74 - 99 mg/dL 06/05/2018 4:09 AM ICE SCRAPER [facility] DIRECTOR OF PROGRAM MANAGEMENT NAME POC YESY ANDERS 06/05/2018 4:09 AM [facility] Whole blood specimen (specimen) 06/05/2018 3:52 AM ICE SCRAPER 06/05/2018 4:09 AM ICE SCRAPER Jam Kahn MD POINT OF CARE FLY Serrano [facility]# [id number] [address] [place] [address] * POC GLUCOSE (06/05/2018 3:31 AM ICE SCRAPER) GLUCOSE POC 90 74 - 99 mg/dL 06/05/2018 3:44 AM ICE SCRAPER [facility] LAB[facility]ATORY SERVICES [facility] DIRECTOR OF PROGRAM MANAGEMENT NAME POC YESY ANDERS 06/05/2018 3:44 AM ICE SCRAPER [facility] SERVICES [facility] Whole blood specimen (specimen) 06/05/2018 3:31 AM ICE SCRAPER 06/05/2018 3:44 AM ICE SCRAPER Jam Kahn MD POINT OF CARE TESTJERONIMO Serrano Performing Organization Address [facility]/ZIP Co de Phone Number [facility]# [id number] [address] [place] [address] * POC GLUCOSE (06/05/2018 2:45 AM ICE SCRAPER) GLUCOSE POC 82 74 - 99 mg/dL 06/05/2018 3:00 AM ICE SCRAPER [facility] DIRECTOR OF PROGRAM MANAGEMENT NAME POC PARIS CALDERON 06/05/2018 3:00 AM ICE SCRAPER [facility] Whole blood specimen (specimen) 06/05/2018 2:45 AM ICE SCRAPER 06/05/2018 3:00 AM ICE SCRAPER Jam Kahn MD POINT OF CARE TESTIN G Performing Organization Address City/[facility]/ZIP Co de Phone Number [facility]# [id number] [address] [place] [address] * (ABNORMAL) POC GLUCOSE (06/05/2018 1:29 AM ICE SCRAPER) GLUCOSE POC 107(H) 74 - 99 mg/dL 06/05/2018 1:41 AM ICE SCRAPER [facility] LABORATORY SERVICES [facility] DIRECTOR OF PROGRAM MANAGEMENT NAME PARIS ROMERO 06/05/2018 1:41 AM ICE SCRAPER [facility] SERVICES [facility] Whole blood specimen (specimen) 06/05/2018 1:29 AM ICE SCRAPER 06/05/2018 1:41 AM ICE SCRAPER Jam Kahn MD POINT OF CARE TESTIN G Performing Organization Address [facility]/ZIP Co de Phone Number [facility] CLIA# [id number] [address] [place] [address] * (ABNORMAL) POC GLUCOSE (06/05/2018 12:39 AM ICE SCRAPER) GLUCOSE POC 111(H) 74 - 99 mg/dL 06/05/2018 12:51 AM ICE SCRAPER [facility] DIRECTOR OF PROGRAM MANAGEMENT NAME POC PARIS CALDERON 06/05/2018 12:51 AM ICE SCRAPER [facility] LAB[facility]ATORY SERVICES [facility] Whole blood specimen (specimen) 06/05/2018 12:39 AM ICE SCRAPER 06/05/2018 12:51 AM ICE SCRAPER Jam Kahn MD POINT OF CARE TESTJERONIMO Maggie Performing Organization Address [facility] Co de Phone Number [facility] CLIA# [id number] [address] [place] [address] * (ABNORMAL) POC GLUCOSE (06/04/2018 11:28 PM ICE SCRAPER) GLUCOSE POC 102(H) 74 - 99 mg/dL 06/04/2018 11:43 PM ICE SCRAPER [facility] DIRECTOR OF PROGRAM MANAGEMENT NAME POC YESY ANDERS 06/04/2018 11:43 PM ICE SCRAPER [facility]ATORY SERVICES [facility] Whole blood specimen (specimen) 06/04/2018 11:28 PM ICE SCRAPER 06/04/2018 11:42 PM ICE SCRAPER Jam Kahn MD POINT OF CARE TESTIN Maggie Performing Organization Address City/[facility]/ZIP Co de Phone Number [facility] LAB[facility] CLIA# [id number] [address] [place] [address] * (ABNORMAL) POC GLUCOSE (06/04/2018 10:31 PM ICE SCRAPER) GLUCOSE POC 123(H) 74 - 99 mg/dL 06/04/2018 10:45 PM ICE SCRAPER [facility] DIRECTOR OF PROGRAM MANAGEMENT NAME PARIS ROMERO 06/04/2018 10:45 PM ICE SCRAPER [facility] LABORATORY SERVICES [facility] Whole blood specimen (specimen) 06/04/2018 10:31 PM ICE SCRAPER 06/04/2018 10:45 PM ICE SCRAPER Jam Kahn MD POINT OF CARE TESTJERONIMO Serrano [facility] CLIA# [id number] [address] [place] [address] * (ABNORMAL) POC GLUCOSE (06/04/2018 9:36 PM ICE SCRAPER) GLUCOSE POC 123(H) 74 - 99 mg/dL 06/04/2018 9:49 PM ICE SCRAPER [facility] DIRECTOR OF PROGRAM MANAGEMENT NAME YESY BEARDEN 06/04/2018 9:49 PM ICE SCRAPER [facility] Whole blood specimen (specimen) 06/04/2018 9:36 PM ICE SCRAPER 06/04/2018 9:49 PM ICE SCRAPER Jam Kahn MD POINT OF CARE TESTJERONIMO Serrano [facility] CLIA# [id number] [address] [place] [address] * POC GLUCOSE (06/04/2018 8:46 PM ICE SCRAPER) GLUCOSE POC 93 74 - 99 mg/dL 06/04/2018 8:58 PM ICE SCRAPER [facility] DIRECTOR OF PROGRAM MANAGEMENT NAME PARIS ROMERO 06/04/2018 8:58 PM ICE SCRAPER [facility] LABORATORY SERVICES [facility] Whole blood specimen (specimen) 06/04/2018 8:46 PM ICE SCRAPER 06/04/2018 8:58 PM ICE SCRAPER Jam Kahn MD POINT OF CARE TESTIN Maggie [facility] [id number] [address] [place], [place] [address] * POC GLUCOSE (06/04/2018 7:30 PM ICE SCRAPER) GLUCOSE POC 91 74 - 99 mg/dL 06/04/2018 7:42 PM ICE SCRAPER [facility] LABORATORY SERVICES [facility] DIRECTOR OF PROGRAM MANAGEMENT NAME POC PARIS CALDERON 06/04/2018 7:42 PM ICE SCRAPER [facility] LABORATORY SERVICES [facility] Whole blood specimen (specimen) 06/04/2018 7:30 PM ICE SCRAPER 06/04/2018 7:42 PM ICE SCRAPER Jam Kahn MD POINT OF CARE TESTJERONIMO Serrano Performing Organization Address [facility] Co de Phone Number [facility]# [id number] [address] [place], [place] [address] * (ABNORMAL) POC GLUCOSE (06/04/2018 5:37 PM ICE SCRAPER) GLUCOSE POC 115(H) 74 - 99 mg/dL 06/04/2018 5:49 PM ICE SCRAPER [facility] LABORATORY SERVICES [facility] COMMENT, GLU POC Notified RN/MD 06/04/2018 5:49 PM ICE SCRAPER [facility] LABORATORY SERVICES [facility] DIRECTOR OF PROGRAM MANAGEMENT NAME POC JAMIE PAYNE 06/04/2018 5:49 PM ICE SCRAPER [facility] LABORATORY SERVICES [facility] Whole blood specimen (specimen) 06/04/2018 5:37 PM ICE SCRAPER 06/04/2018 5:49 PM ICE SCRAPER Jam Kahn MD POINT OF CARE TESTJERONIMO Serrano Performing Organization Address [facility]/ZIP Co de Phone Number [facility] [id number] [address] [place], [place] [address] * (ABNORMAL) TRIGLYCERIDE (06/04/2018 4:57 PM ICE SCRAPER) TRIGLYCERIDE 532(H) <150 mg/dL 06/04/2018 5:[address] [facility] Blood Venipuncture / Unknown 06/04/2018 4:57 PM ICE SCRAPER 06/04/2018 5:08 PM ICE SCRAPER Narrative [facility] - 06/04/2018 5:49 PM ICE SCRAPER TRIGLYCERIDES ? mg/dL Normal ?< 150 Borderline High ?150 - 199 High ? 200 - 499 Very High ? >= 500 Based on AHA/NCEP Guidelines. Jam Kahn MD CHEMISTRY ORDERABLES Performing Organization Address [facility]/ZIP Co de Phone Number [facility]# [id number] [address] [place] [address] * (ABNORMAL) POC GLUCOSE (06/04/2018 4:46 PM ICE SCRAPER) [facility] GLUCOSE POC 121(H) 74 - 99 mg/dL 06/04/2018 4:58 PM ICE SCRAPER [facility] COMMENT, GLU POC Notified RN/MD 06/04/2018 4:58 PM ICE SCRAPER [facility] DIRECTOR OF PROGRAM MANAGEMENT NAME POC JAMIE PAYNE 06/04/2018 4:[address] [facility] Whole blood specimen (specimen) 06/04/2018 4:46 PM ICE SCRAPER 06/04/2018 4:58 PM ICE SCRAPER Jam Kahn MD POINT OF CARE TESTIN G Performing Organization Address [facility]/ZIP Co de Phone Number [facility]# [id number] [address] [place] [address] * (ABNORMAL) POC GLUCOSE (06/04/2018 3:45 PM ICE SCRAPER) GLUCOSE POC 131(H) 74 - 99 mg/dL 06/04/2018 3:57 PM ICE SCRAPER [facility] COMMENT, GLU POC Notified RN/ 06/04/2018 3:57 PM ICE SCRAPER [facility] DIRECTOR OF PROGRAM MANAGEMENT NAME JAMIE FIGUEREDO 06/04/2018 3:57 PM ICE SCRAPER [facility] Whole blood specimen (specimen) 06/04/2018 3:45 PM ICE SCRAPER 06/04/2018 3:57 PM ICE SCRAPER Jam Kahn MD POINT OF CARE TESTIN G Performing Organization Address [facility]/ZIP Co de Phone Number [facility] CLIA# [id number] [address] [place] [address] * (ABNORMAL) POC GLUCOSE (06/04/2018 2:31 PM ICE SCRAPER) GLUCOSE POC 156(H) 74 - 99 mg/dL 06/04/2018 2:43 PM ICE SCRAPER [facility] COMMENT, GLU POC Notified CLAU/ 06/04/2018 2:43 PM ICE SCRAPER [facility] DIRECTOR OF PROGRAM MANAGEMENT NAME JAMIE FIGUEREDO 06/04/2018 2:43 PM ICE SCRAPER [facility] LABORATORY SERVICES [facility] Whole blood specimen (specimen) 06/04/2018 2:31 PM ICE SCRAPER 06/04/2018 2:43 PM ICE SCRAPER Jam Kahn MD POINT OF CARE TESTIN G [facility] CLVT# [id number] [address] [place] [address] * (ABNORMAL) POC GLUCOSE (06/04/2018 1:39 PM ICE SCRAPER) GLUCOSE POC 201(H) 74 - 99 mg/dL 06/04/2018 1:51 PM ICE SCRAPER [facility] LABORATORY SERVICES [facility] COMMENT, GLU POC Notified RN/ 06/04/2018 1:51 PM ICE SCRAPER [facility] LABORATORY SERVICES - [facility] DIRECTOR OF PROGRAM MANAGEMENT NAME POC JAMIE PAYNE 06/04/2018 1:51 PM ICE SCRAPER [facility] LAB[facility]ORY SERVICES - [facility] Whole blood specimen (specimen) 06/04/2018 1:39 PM ICE SCRAPER 06/04/2018 1:51 PM ICE SCRAPER Jam Kahn MD POINT OF CARE TESTJERONIMO Performing Organization Address [facility] Co ms Phone Number [facility]# [id number] [address] [place] [address] * (ABNORMAL) POC GLUCOSE (06/04/2018 12:46 PM ICE SCRAPER) GLUCOSE POC 162(H) 74 - 99 mg/dL 06/04/2018 12:59 PM ICE SCRAPER [facility] LABORAT[facility] SERVICES - [facility] DIRECTOR OF PROGRAM MANAGEMENT NAME POC MT HEALYZHANNA 06/04/2018 12:59 PM ICE SCRAPER [facility] LABORATORY SERVICES [facility] Whole blood specimen (specimen) 06/04/2018 12:46 PM ICE SCRAPER 06/04/2018 12:59 PM ICE SCRAPER Jam Kahn MD POINT OF CARE TESTJERONIMO Performing Organization Address [facility] Phone Number [facility]# [id number] [address] [place] [address] * (ABNORMAL) POC GLUCOSE (06/04/2018 11:40 AM ICE SCRAPER) GLUCOSE POC 178(H) 74 - 99 mg/dL 06/04/2018 11:52 AM ICE SCRAPER [facility] COMMENT, GLU POC Notified BREANN 06/04/2018 11:52 AM ICE SCRAPER [facility]ORY SERVICES - [facility] DIRECTOR OF PROGRAM MANAGEMENT NAME POC JAMIE PAYNE 06/04/2018 11:52 AM ICE SCRAPER [facility] LABORATORY SERVICES [facility] Whole blood specimen (specimen) 06/04/2018 11:40 AM ICE SCRAPER 06/04/2018 11:52 AM ICE SCRAPER Jam Kahn MD POINT OF CARE TESTJERONIMO Maggie Performing Organization Address [facility]/ZIP Co de Phone Number [facility]# [id number] [address] [place] [address] * (ABNORMAL) POC GLUCOSE (06/04/2018 10:50 AM ICE SCRAPER) GLUCOSE POC 203(H) 74 - 99 mg/dL 06/04/2018 11:03 AM ICE SCRAPER [facility] LABORATORY SERVICES [facility] DIRECTOR OF PROGRAM MANAGEMENT NAME POC LIBIA HEALY 06/04/2018 11:03 AM ICE SCRAPER [facility] LABORATORY SERVICES [facility] Whole blood specimen (specimen) 06/04/2018 10:50 AM ICE SCRAPER 06/04/2018 11:03 AM ICE SCRAPER Jam Kahn MD POINT OF CARE TESTJERONIMO Maggie Performing Organization Address [facility]/ZIP Co de Phone Number [facility]# [id number] [address] [place] [address] * (ABNORMAL) POC GLUCOSE (06/04/2018 10:03 AM ICE SCRAPER) GLUCOSE POC 192(H) 74 - 99 mg/dL 06/04/2018 10:21 AM [facility] LABORATORY SERVICES [facility] COMMENT, GLU POC Notified RN/MD 06/04/2018 10:21 AM [facility] LABORATORY SERVICES [facility] DIRECTOR OF PROGRAM MANAGEMENT NAME POC KERRY JAMIE 06/04/2018 10:21 AM ICE SCRAPER [facility] Whole blood specimen (specimen) 06/04/2018 10:03 AM ICE SCRAPER 06/04/2018 10:21 AM ICE SCRAPER Jam Kahn MD POINT OF CARE TESTEJRONIMO Serrano Performing Organization Address [facility]/ZIP Co de Phone Number [facility]ORY [facility]# [id number] [address] [place] [address] * (ABNORMAL) POC GLUCOSE (06/04/2018 9:00 AM ICE SCRAPER) GLUCOSE POC 135(H) 74 - 99 mg/dL 06/04/2018 9:14 AM [facility] LABORATORY SERVICES [facility] DIRECTOR OF PROGRAM MANAGEMENT NAME POC LIBIA HEALY 06/04/2018 9:14 AM [facility] LABORATORY SERVICES [facility] Whole blood specimen (specimen) 06/04/2018 9:00 AM ICE SCRAPER 06/04/2018 9:14 AM ICE SCRAPER Jam Kahn MD POINT OF CARE TESTJERONIMO G Performing Organization Address [facility]/ZIP Co de Phone Number [facility] CLIA# [id number] [address] [place] [address] * (ABNORMAL) POC GLUCOSE (06/04/2018 7:29 AM ICE SCRAPER) GLUCOSE POC 131(H) 74 - 99 mg/dL 06/04/2018 7:44 AM [facility] LABORATORY SERVICES [facility] COMMENT, GLU POC Notified RN/MD 06/04/2018 7:44 AM [facility] LABORATORY SERVICES [facility] DIRECTOR OF PROGRAM MANAGEMENT NAME POC JAMIE PAYNE 06/04/2018 7:44 AM [facility] Whole blood specimen (specimen) 06/04/2018 7:29 AM ICE SCRAPER 06/04/2018 7:44 AM ICE SCRAPER Jam Kahn MD POINT OF CARE TESTJERONIMO G Performing Organization Address [facility]/ZIP Co de Phone Number [facility] CLIA# [id number] [address] [place] [address] * (ABNORMAL) POC GLUCOSE (06/04/2018 6:29 AM ICE SCRAPER) GLUCOSE POC 136(H) 74 - 99 mg/dL 06/04/2018 6:43 AM [facility] LABORATORY SERVICES [facility] DIRECTOR OF PROGRAM MANAGEMENT NAME POC SABINA LASSITERI 06/04/2018 6:43 AM ICE SCRAPER [facility] LABORATORY SERVICES [facility] Whole blood specimen (specimen) 06/04/2018 6:29 AM ICE SCRAPER 06/04/2018 6:43 AM ICE SCRAPER Jam Kahn MD POINT OF CARE FLY Serrano Performing Organization Address [facility]/ZIP Co de Phone Number [facility]# [id number] [address] [place] [address] * (ABNORMAL) POC GLUCOSE (06/04/2018 5:42 AM ICE SCRAPER) GLUCOSE POC 128(H) 74 - 99 mg/dL 06/04/2018 5:54 AM ICE SCRAPER [facility] DIRECTOR OF PROGRAM MANAGEMENT NAME PARIS ROMERO 06/04/2018 5:54 AM [facility] Whole blood specimen (specimen) 06/04/2018 5:42 AM ICE SCRAPER 06/04/2018 5:54 AM ICE SCRAPER Jam Kahn MD POINT OF CARE FLY Serrano Performing Organization Address [facility] Co de Phone Number [facility]# [id number] [address] [place] [address] * (ABNORMAL) TRIGLYCERIDE (06/04/2018 4:40 AM ICE SCRAPER) TRIGLYCERIDE 628(H) <150 mg/dL 06/04/2018 5:27 AM ICE SCRAPER [facility] Blood Venipuncture / Unknown 06/04/2018 4:40 AM ICE SCRAPER 06/04/2018 4:45 AM ICE SCRAPER Narrative [facility] - 06/04/2018 5:27 AM ICE SCRAPER TRIGLYCERIDES ? mg/dL Normal ?< 150 Borderline High ?150 - 199 High ? 200 - 499 Very High ? >= 500 Based on AHA/NCEP Guidelines. Jam Kahn MD CHEMISTRY ORDERABLES [facility] LABORATORY SERVICES - [facility] CLIA# [id number] [address] [place] [address] * (ABNORMAL) COMPREHENSIVE METABOLIC PANEL (06/04/2018 4:40 AM ICE SCRAPER) SODIUM 139 136 - 145 mmol/L 06/04/2018 5:27 AM [facility] LABORATORY SERVICES - [facility] POTASSIUM 3.7 3.5 - 5.0 mmol/L 06/04/2018 5:27 AM [facility] LABORATORY SERVICES - [facility] CHLORIDE 101 98 - 107 mmol/L 06/04/2018 5:27 AM [facility] LAB[facility]ATORY SERVICES - [facility] CO2 26 22 - 29 mmol/L 06/04/2018 5:27 AM [facility]ATORY SERVICES - [facility] CALCIUM 8.2(L) 8.6 - 10.2 mg/dL 06/04/2018 5:27 AM [facility]ATORY SERVICES - [facility] BUN 8 6 - 20 mg/dL 06/04/2018 5:27 AM [facility] LABORATORY SERVICES - [facility] CREATININE 0.57 0.51 - 0.95 mg/dL 06/04/2018 5:27 AM [facility]ATORY SERVICES - [facility] GLUCOSE 153(H) 74 - 99 mg/dL 06/04/2018 5:27 AM [facility]ATORY SERVICES - [facility] TOTAL PROTEIN 5.5(L) 6.7 - 8.6 g/dL 06/04/2018 5:27 AM [facility] LABORATORY SERVICES - [facility] ALBUMIN 3.5 3.5 - 5.2 g/dL 06/04/2018 5:27 AM [facility]ATORY SERVICES - [facility] BILIRUBIN TOTAL <0.2(L) 0.3 - 1.2 mg/dL 06/04/2018 5:27 AM [facility] LABORATORY SERVICES - [facility] ALKALINE PHOSPHATASE 39 35 - 104 U/L 06/04/2018 5:27 AM [facility] - [facility] AST 24 <33 U/L 06/04/2018 5:27 AM [facility] - [facility] ALT 22 <34 U/L 06/04/2018 5:27 AM [facility] - [facility] GFR >60 >=60 mL/min/1.7 3 sq meter 06/04/2018 5:27 AM [facility] Comment: eGFR has not been validated for [...] GFR, >60 >=60 mL/min/1.7 3 sq meter 06/04/2018 5:27 AM [facility] ANION GAP 12 8 - 16 mmol/L 06/04/2018 5:27 AM [facility] Blood Venipuncture / Unknown 06/04/2018 4:40 AM ICE SCRAPER 06/04/2018 4:45 AM ICE SCRAPER Narrative [facility] - 06/04/2018 5:27 AM ICE SCRAPER Samples containing indocyanine green cause interferences on Total and/or Direct Bilirubin and must not be measured. Jam Kahn MD CHEMISTRY ORDERABLES [facility]# [id number] [address] [facility] [place] [place] [address] * (ABNORMAL) POC GLUCOSE (06/04/2018 4:35 AM ICE SCRAPER) GLUCOSE POC 135(H) 74 - 99 mg/dL 06/04/2018 4:53 AM [facility] DIRECTOR OF PROGRAM MANAGEMENT NAME POC TAMIKO LASSITER 06/04/2018 4:53 AM [facility] Whole blood specimen (specimen) 06/04/2018 4:35 AM ICE SCRAPER 06/04/2018 4:53 AM ICE SCRAPER Jam Kahn MD POINT OF CARE TESTIN G [id number] [address] [place] [address] * (ABNORMAL) POC GLUCOSE (06/04/2018 3:32 AM ICE SCRAPER) GLUCOSE POC 119(H) 74 - 99 mg/dL 06/04/2018 3:44 AM ICE SCRAPER [facility] LABORATORY SERVICES [facility] DIRECTOR OF PROGRAM MANAGEMENT NAME POC PARIS CALDERON 06/04/2018 3:44 AM ICE SCRAPER [facility] LABORATORY SERVICES [facility] Whole blood specimen (specimen) 06/04/2018 3:32 AM ICE SCRAPER 06/04/2018 3:44 AM ICE SCRAPER Jam Kahn MD POINT OF CARE FLY Serrano Performing Organization Address [facility]/ZIP Co de Phone Number [facility] LABORATORY SERVICES [facility] CLIA# [id number] [address] [place] [address] * (ABNORMAL) POC GLUCOSE (06/04/2018 2:27 AM ICE SCRAPER) GLUCOSE POC 107(H) 74 - 99 mg/dL 06/04/2018 2:43 AM ICE SCRAPER [facility] LABORATORY SERVICES [facility] DIRECTOR OF PROGRAM MANAGEMENT NAME POC TAMIKO LASSITER 06/04/2018 2:43 AM ICE SCRAPER [facility] LABORATORY SERVICES [facility] Whole blood specimen (specimen) 06/04/2018 2:27 AM ICE SCRAPER 06/04/2018 2:42 AM ICE SCRAPER Jam Kahn MD POINT OF CARE TESTJERONIMO Serrano Performing Organization Address City/[facility]/ZIP Co de Phone Number [facility] [id number] [address] [place] [address] * (ABNORMAL) POC GLUCOSE (06/04/2018 1:23 AM ICE SCRAPER) GLUCOSE POC 115(H) 74 - 99 mg/dL 06/04/2018 1:35 AM ICE SCRAPER [facility] LABORATORY SERVICES [facility] DIRECTOR OF PROGRAM MANAGEMENT NAME POC PARIS CALDERON 06/04/2018 1:35 AM ICE SCRAPER [facility] Whole blood specimen (specimen) 06/04/2018 1:23 AM ICE SCRAPER 06/04/2018 1:35 AM ICE SCRAPER Jam Kahn MD POINT OF CARE TESTIN Maggie Performing Organization Address City/[facility]/ZIP Co de Phone Number [facility] LAB[facility]ORY [facility] CLIA# [id number] [address] [place] [address] * (ABNORMAL) POC GLUCOSE (06/04/2018 12:31 AM ICE SCRAPER) GLUCOSE POC 132(H) 74 - 99 mg/dL 06/04/2018 12:44 AM ICE SCRAPER [facility] DIRECTOR OF PROGRAM MANAGEMENT NAME TAMIKO GIVENS 06/04/2018 12:44 AM ICE SCRAPER [facility] LABORATORY SERVICES [facility] Whole blood specimen (specimen) 06/04/2018 12:31 AM ICE SCRAPER 06/04/2018 12:44 AM ICE SCRAPER Jam Kahn MD POINT OF CARE TESTJERONIMO Maggie Performing Organization Address [facility] Co de Phone Number [facility] CLIA# [id number] [address] [place] [address] * (ABNORMAL) POC GLUCOSE (06/03/2018 11:31 PM ICE SCRAPER) GLUCOSE POC 136(H) 74 - 99 mg/dL 06/03/2018 11:43 PM ICE SCRAPER [facility] DIRECTOR OF PROGRAM MANAGEMENT NAME POC PARIS CALDERON 06/03/2018 11:43 PM ICE SCRAPER [facility] LABORATORY SERVICES [facility] Whole blood specimen (specimen) 06/03/2018 11:31 PM ICE SCRAPER 06/03/2018 11:43 PM ICE SCRAPER Jam Kahn MD POINT OF CARE TESTJERONIMO Serrano Performing Organization Address [facility]/ZIP Co de Phone Number [facility]# [id number] [address] [place] [address] * (ABNORMAL) POC GLUCOSE (06/03/2018 10:29 PM ICE SCRAPER) GLUCOSE POC 140(H) 74 - 99 mg/dL 06/03/2018 10:41 PM ICE SCRAPER [facility] DIRECTOR OF PROGRAM MANAGEMENT NAME TAMIKO GIVENS 06/03/2018 10:41 PM ICE SCRAPER [facility] Whole blood specimen (specimen) 06/03/2018 10:29 PM ICE SCRAPER 06/03/2018 10:41 PM ICE SCRAPER Jam Kahn MD POINT OF CARE TESTJERONIMO Serrano [facility] LABORATORY [facility]# [id number] [address] [place] [address] * (ABNORMAL) POC GLUCOSE (06/03/2018 9:31 PM ICE SCRAPER) GLUCOSE POC 155(H) 74 - 99 mg/dL 06/03/2018 9:44 PM ICE SCRAPER [facility] DIRECTOR OF PROGRAM MANAGEMENT NAME PARIS ROMERO 06/03/2018 9:44 PM ICE SCRAPER [facility] LABORATORY SERVICES [facility] Whole blood specimen (specimen) 06/03/2018 9:31 PM ICE SCRAPER 06/03/2018 9:44 PM ICE SCRAPER Jam Kahn MD POINT OF CARE TESTJERONIMO Serrano [facility]# [id number] [address] [place] [address] * (ABNORMAL) POC GLUCOSE (06/03/2018 8:25 PM ICE SCRAPER) GLUCOSE POC 152(H) 74 - 99 mg/dL 06/03/2018 8:39 PM ICE SCRAPER [facility]AT[facility] SERVICES - [facility] DIRECTOR OF PROGRAM MANAGEMENT NAME TAMIKO GIVENS 06/03/2018 8:39 PM ICE SCRAPER [facility] SERVICES [facility] Whole blood specimen (specimen) 06/03/2018 8:25 PM ICE SCRAPER 06/03/2018 8:39 PM ICE SCRAPER Jam Kahn MD POINT OF CARE TESTJERONIMO Serrano [facility] CLIA# [id number] [address] [place] [address] * (ABNORMAL) POC GLUCOSE (06/03/2018 7:36 PM ICE SCRAPER) GLUCOSE POC 170(H) 74 - 99 mg/dL 06/03/2018 7:56 PM ICE SCRAPER [facility] LAB[facility]ATORY [facility] DIRECTOR OF PROGRAM MANAGEMENT NAME POC TAMIKO LASSITER 06/03/2018 7:56 PM ICE SCRAPER [facility] Whole blood specimen (specimen) 06/03/2018 7:36 PM ICE SCRAPER 06/03/2018 7:56 PM ICE SCRAPER Jam Kahn MD POINT OF CARE TESTJERONIMO Serrano Performing Organization Address [facility]/ZIP Co de Phone Number [facility] CLIA# [id number] [address] [place] [address] * (ABNORMAL) POC GLUCOSE (06/03/2018 6:28 PM ICE SCRAPER) GLUCOSE POC 118(H) 74 - 99 mg/dL 06/03/2018 6:45 PM ICE SCRAPER [facility] LAB[facility]ATORY [facility] DIRECTOR OF PROGRAM MANAGEMENT NAME POC EDA ESPARZA 06/03/2018 6:45 PM ICE SCRAPER [facility] LAB[facility] Whole blood specimen (specimen) 06/03/2018 6:28 PM ICE SCRAPER 06/03/2018 6:45 PM ICE SCRAPER Jam Kahn MD POINT OF CARE TESTJERONIMO Maggie Performing Organization Address City/[facility]/ZIP Co de Phone Number [facility] CLIA# [id number] [address] [place] [address] * (ABNORMAL) TRIGLYCERIDE (06/03/2018 5:29 PM ICE SCRAPER) TRIGLYCERIDE 520(H) <150 mg/dL 06/03/2018 6:[address] [facility] Blood Venipuncture / Unknown 06/03/2018 5:29 PM ICE SCRAPER 06/03/2018 5:33 PM ICE SCRAPER Narrative [facility] - 06/03/2018 6:25 PM ICE SCRAPER TRIGLYCERIDES ? mg/dL Normal ?< 150 Borderline High ?150 - 199 High ? 200 - 499 Very High ? >= 500 Based on AHA/NCEP Guidelines. Jam Kahn MD CHEMISTRY ORDERABLES Performing Organization Address [facility] Co de Phone Number [facility]# [id number] [address] [place] [address] * (ABNORMAL) POC GLUCOSE (06/03/2018 5:27 PM ICE SCRAPER) GLUCOSE POC 115(H) 74 - 99 mg/dL 06/03/2018 5:[address] [facility] DIRECTOR OF PROGRAM MANAGEMENT NAME POC ALIZE ROBERTS 06/03/2018 5:[address] [facility] Whole blood specimen (specimen) 06/03/2018 5:27 PM ICE SCRAPER 06/03/2018 5:57 PM ICE SCRAPER Jam Kahn MD POINT OF CARE TESTIN G Performing Organization Address City/[facility]/ZIP Co de Phone Number [facility]# [id number] [address] [place] [address] * (ABNORMAL) POC GLUCOSE (06/03/2018 4:32 PM ICE SCRAPER) GLUCOSE POC 124(H) 74 - 99 mg/dL 06/03/2018 4:46 PM ICE SCRAPER [facility] LABORATORY [facility] DIRECTOR OF PROGRAM MANAGEMENT NAME POC ALIZE ROBERTS 06/03/2018 4:46 PM ICE SCRAPER [facility] LAB[facility] Whole blood specimen (specimen) 06/03/2018 4:32 PM ICE SCRAPER 06/03/2018 4:46 PM ICE SCRAPER Jam Kahn MD POINT OF CARE TESTJERONIMO Serrano Performing Organization Address [facility] Co de Phone Number [facility] CLIA# [id number] [address] [place] [address] * (ABNORMAL) POC GLUCOSE (06/03/2018 3:31 PM ICE SCRAPER) GLUCOSE POC 107(H) 74 - 99 mg/dL 06/03/2018 3:47 PM ICE SCRAPER [facility] LAB[facility] DIRECTOR OF PROGRAM MANAGEMENT NAME POC ALIZE ROBERTS 06/03/2018 3:47 PM ICE SCRAPER [facility] Whole blood specimen (specimen) 06/03/2018 3:31 PM ICE SCRAPER 06/03/2018 3:47 PM ICE SCRAPER Jam Kahn MD POINT OF CARE TESTJERONIMO Maggie Performing Organization Address [facility] Co ms Phone Number [facility] CLIA# [id number] [address] [place] [address] * (ABNORMAL) POC GLUCOSE (06/03/2018 2:37 PM ICE SCRAPER) GLUCOSE POC 108(H) 74 - 99 mg/dL 06/03/2018 2:53 PM ICE SCRAPER [facility] LAB[facility] DIRECTOR OF PROGRAM MANAGEMENT NAME POC EDA ESPARZA 06/03/2018 2:53 PM ICE SCRAPER [facility] Whole blood specimen (specimen) 06/03/2018 2:37 PM ICE SCRAPER 06/03/2018 2:53 PM ICE SCRAPER Jam Kahn MD POINT OF CARE TESTJERONIMO Serrano Performing Organization Address [facility] Co de Phone Number [facility]# [id number] [address] [place] [address] * (ABNORMAL) POC GLUCOSE (06/03/2018 1:32 PM ICE SCRAPER) GLUCOSE POC 116(H) 74 - 99 mg/dL 06/03/2018 1:50 PM ICE SCRAPER [facility] LAB[facility] DIRECTOR OF PROGRAM MANAGEMENT NAME POC EDA ESPARZA 06/03/2018 1:50 PM ICE SCRAPER [facility] LABORATORY SERVICES [facility] Whole blood specimen (specimen) 06/03/2018 1:32 PM ICE SCRAPER 06/03/2018 1:50 PM ICE SCRAPER Jam Kahn MD POINT OF CARE TESTJERONIMO Serrano [facility]# [id number] [address] [place] [address] * (ABNORMAL) POC GLUCOSE (06/03/2018 12:33 PM ICE SCRAPER) GLUCOSE POC 131(H) 74 - 99 mg/dL 06/03/2018 12:47 PM ICE SCRAPER [facility] LAB[facility] DIRECTOR OF PROGRAM MANAGEMENT NAME POC ALIZE ROBERTS 06/03/2018 12:47 PM ICE SCRAPER [facility] Whole blood specimen (specimen) 06/03/2018 12:33 PM ICE SCRAPER 06/03/2018 12:47 PM ICE SCRAPER Jam Kahn MD POINT OF CARE TESTJERONIMO Serrano [facility]# [id number] [address] [place] [address] * (ABNORMAL) POC GLUCOSE (06/03/2018 11:34 AM ICE SCRAPER) GLUCOSE POC 152(H) 74 - 99 mg/dL 06/03/2018 11:49 AM ICE SCRAPER [facility] LABORATORY SERVICES [facility] DIRECTOR OF PROGRAM MANAGEMENT NAME ALIZE ZIMMER 06/03/2018 11:49 AM ICE SCRAPER [facility] Whole blood specimen (specimen) 06/03/2018 11:34 AM ICE SCRAPER 06/03/2018 11:49 AM ICE SCRAPER Jam Kahn MD POINT OF CARE TESTIN Maggie Performing Organization Address City/[facility]/ZIP Co de Phone Number [facility] [employer] CLIA# [id number] [address] [place] [address] * (ABNORMAL) POC GLUCOSE (06/03/2018 10:44 AM ICE SCRAPER) GLUCOSE POC 134(H) 74 - 99 mg/dL 06/03/2018 10:58 AM ICE SCRAPER [facility] DIRECTOR OF PROGRAM MANAGEMENT NAME POC VILMA, EDA 06/03/2018 10:58 AM ICE SCRAPER [facility] Whole blood specimen (specimen) 06/03/2018 10:44 AM ICE SCRAPER 06/03/2018 10:58 AM ICE SCRAPER Jam Kahn MD POINT OF CARE TESTJERONIMO Maggie Performing Organization Address [facility]/ZIP Co de Phone Number [facility] [employer] [facility] CLIA# [id number] [address] [place] [address] * (ABNORMAL) POC GLUCOSE (06/03/2018 9:41 AM ICE SCRAPER) GLUCOSE POC 130(H) 74 - 99 mg/dL 06/03/2018 10:05 AM ICE SCRAPER [facility] DIRECTOR OF PROGRAM MANAGEMENT NAME POC VILMA, EDA 06/03/2018 10:05 AM ICE SCRAPER [facility] Whole blood specimen (specimen) 06/03/2018 9:41 AM ICE SCRAPER 06/03/2018 10:04 AM ICE SCRAPER Jam Kahn MD POINT OF CARE TESTJERONIMO Maggie Performing Organization Address [facility]/ZIP Co de Phone Number [facility] CLIA# [id number] [address] [place] [address] * (ABNORMAL) POC GLUCOSE (06/03/2018 8:29 AM ICE SCRAPER) GLUCOSE POC 136(H) 74 - 99 mg/dL 06/03/2018 8:41 AM ICE SCRAPER [facility] [facility] DIRECTOR OF PROGRAM MANAGEMENT NAME YULIANA TRENT 06/03/2018 8:41 AM [facility] Whole blood specimen (specimen) 06/03/2018 8:29 AM ICE SCRAPER 06/03/2018 8:41 AM ICE SCRAPER Jam Kahn MD POINT OF CARE TESTIN G [facility] [employer] [facility]# [id number] [address] [place] [address] * (ABNORMAL) POC GLUCOSE (06/03/2018 7:17 AM ICE SCRAPER) GLUCOSE POC 134(H) 74 - 99 mg/dL 06/03/2018 7:31 AM ICE SCRAPER [facility] LAB[facility]AT[facility] DIRECTOR OF PROGRAM MANAGEMENT NAME POC JESSICA REGALADO 06/03/2018 7:31 AM [facility] LABORATORY [facility] Whole blood specimen (specimen) 06/03/2018 7:17 AM ICE SCRAPER 06/03/2018 7:31 AM ICE SCRAPER Mc Stinson MD POINT OF CARE TESTIN G [facility]# [id number] [address] [place] [address] * (ABNORMAL) POC GLUCOSE (06/03/2018 6:25 AM ICE SCRAPER) GLUCOSE POC 146(H) 74 - 99 mg/dL 06/03/2018 6:56 AM ICE SCRAPER [facility] LAB[facility]AT[facility] DIRECTOR OF PROGRAM MANAGEMENT NAME JESSICA JACKSON 06/03/2018 6:56 AM ICE SCRAPER [facility] LABORATORY SERVICES [facility] Whole blood specimen (specimen) 06/03/2018 6:25 AM ICE SCRAPER 06/03/2018 6:56 AM ICE SCRAPER Mc Stinson MD POINT OF CARE TESTJERONIMO Serrano Performing Organization Address [facility] Co de Phone Number [id number] [address] [place] [address] * (ABNORMAL) POC GLUCOSE (06/03/2018 5:20 AM ICE SCRAPER) GLUCOSE POC 135(H) 74 - 99 mg/dL 06/03/2018 5:38 AM ICE SCRAPER [facility] LAB[facility] DIRECTOR OF PROGRAM MANAGEMENT NAME POC JESSICA REGALADO 06/03/2018 5:38 AM ICE SCRAPER [facility] Whole blood specimen (specimen) 06/03/2018 5:20 AM ICE SCRAPER 06/03/2018 5:38 AM ICE SCRAPER Mc Stinson MD POINT OF CARE FLY Serrano Performing Organization Address [facility] Co de Phone Number [facility]# [id number] [address] [place] [address] * C-REACTIVE PROTEIN (06/03/2018 4:32 AM ICE SCRAPER) CRP 1.9 <5.0 mg/L 06/03/2018 11:38 AM ICE SCRAPER [facility] LAB[facility] Blood Venipuncture / Unknown 06/03/2018 4:32 AM ICE SCRAPER 06/03/2018 5:08 AM ICE SCRAPER Jam Kahn MD CHEMISTRY ORDERABLES Performing Organization Address [facility] Co de Phone Number [facility]# [id number] [address] [place] [address] * (ABNORMAL) TRIGLYCERIDE (06/03/2018 4:32 AM ICE SCRAPER) TRIGLYCERIDE 654(H) <150 mg/dL 06/03/2018 11:38 AM [facility] LABORATORY [facility] Blood Venipuncture / Unknown 06/03/2018 4:32 AM ICE SCRAPER 06/03/2018 5:08 AM ICE SCRAPER Narrative [facility] - 06/03/2018 11:38 AM ICE SCRAPER TRIGLYCERIDES ? mg/dL Normal ?< 150 Borderline High ?150 - 199 High ? 200 - 499 Very High ? >= 500 Based on AHA/NCEP Guidelines. Jam Kahn MD CHEMISTRY ORDERABLES Performing Organization Address [facility] Co de Phone Number [facility]# [id number] [address] [place] [address] * LIPASE (06/03/2018 4:32 AM ICE SCRAPER) Pathologist [facility] LIPASE 28 13 - 60 U/L 06/03/2018 5:55 AM [facility] Blood Venipuncture / Unknown 06/03/2018 4:32 AM ICE SCRAPER 06/03/2018 5:08 AM ICE SCRAPER Mc Stinson MD CHEMISTRY ORDERABLES Performing Organization Address [facility] Co de Phone Number [facility]# [id number] [address] [place] [address] * (ABNORMAL) COMPREHENSIVE METABOLIC PANEL (06/03/2018 4:32 AM ICE SCRAPER) SODIUM 137 136 - 145 mmol/L 06/03/2018 5:56 AM [facility] [employer] LABORATORY [facility] POTASSIUM 4.1 3.5 - 5.0 mmol/L 06/03/2018 5:56 AM [facility] [employer] LABORATORY SERVICES [facility] CHLORIDE 100 98 - 107 mmol/L 06/03/2018 5:56 AM [facility] LABORATORY SERVICES [facility] CO2 26 22 - 29 mmol/L 06/03/2018 5:56 AM [facility] [employer] LABORATORY SERVICES - . [facility] CALCIUM 9.0 8.6 - 10.2 mg/dL 06/03/2018 5:56 AM [facility] [employer] LABORATORY SERVICES - . [facility] BUN 12 6 - 20 mg/dL 06/03/2018 5:56 AM [facility] CREATININE 0.58 0.51 - 0.95 mg/dL 06/03/2018 5:56 AM [facility] [employer] LABORATORY SERVICES - . [facility] GLUCOSE 149(H) 74 - 99 mg/dL 06/03/2018 5:56 AM [facility] [employer] LABORATORY [facility] - . [facility] TOTAL PROTEIN 6.3(L) 6.7 - 8.6 g/dL 06/03/2018 5:56 AM [facility] [employer] LABORATORY [facility] - . [facility] ALBUMIN 4.2 3.5 - 5.2 g/dL 06/03/2018 5:56 AM [facility] [employer] LABORATORY [facility] - . [facility] BILIRUBIN TOTAL <0.2(L) 0.3 - 1.2 mg/dL 06/03/2018 5:56 AM [facility] [employer] LABORATORY [facility] ALKALINE PHOSPHATASE 52 35 - 104 U/L 06/03/2018 5:56 AM [facility] [employer] LABORATORY [facility] AST 20 <33 U/L 06/03/2018 5:56 AM [facility] [employer] LABORATORY [facility] Comment: Hemolysis present. Result may be falsely elevated. ALT 16 <34 U/L 06/03/2018 5:56 AM [facility] [employer] LABORATORY [facility] GFR >60 >=60 mL/min/1.7 3 sq meter 06/03/2018 5:56 AM ICE SCRAPER [employer] LABORATORY [facility] Comment: eGFR has not been validated for [...] GFR, >60 >=60 mL/min/1.7 3 sq meter 06/03/2018 5:56 AM [facility] [employer] [facility] ANION GAP 11 8 - 16 mmol/L 06/03/2018 5:56 AM [facility] Blood Venipuncture / Unknown 06/03/2018 4:32 AM ICE SCRAPER 06/03/2018 5:08 AM [facility] LABORATORY SERVICES - [facility] - 06/03/2018 5:56 AM ICE SCRAPER Samples containing indocyanine green cause interferences on Total and/or Direct Bilirubin and must not be measured. Mc Stinson MD CHEMISTRY ORDERABLES [facility] CLIA# [id number] [address] [place] [address] * (ABNORMAL) CBC WITH DIFFERENTIAL (06/03/2018 4:32 AM ICE SCRAPER) WBC 10.0(H) 4.0 - 9.8 K/uL 06/03/2018 5:30 AM [facility] RBC 3.90 3.90 - 4.90 M/uL 06/03/2018 5:30 AM [facility] HEMOGLOBIN 11.6(L) 11.8 - 14.8 g/dL 06/03/2018 5:30 AM [facility] [employer] [facility] HEMATOCRIT 36.2 35.5 - 44.0 % 06/03/2018 5:30 AM [facility] [employer] [facility] MCV 92.8 82.0 - 99.0 fL 06/03/2018 5:30 AM [facility] MCH 29.7 27.2 - 32.6 pg 06/03/2018 5:30 AM [facility] [employer] [facility] MCHC 32.0 31.5 - 35.5 g/dL 06/03/2018 5:30 AM [facility] [employer] [facility] RDW 13.8 11.5 - 14.5 % 06/03/2018 5:30 AM [facility] [employer] [facility]. [facility] RDW-STDEV 47.0 37.1 - 48.7 fL 06/03/2018 5:30 AM [facility] [employer] [facility] PLATELETS 265 140 - 350 K/uL 06/03/2018 5:30 AM [facility] [employer] [facility] MPV 9.2(L) 9.3 - 12.4 fL 06/03/2018 5:30 AM [facility] [employer] [facility] NEUTROPHILS 56 % 06/03/2018 5:30 AM [facility] [employer] [facility] LYMPHOCYTES 37 % 06/03/2018 5:30 AM [facility] [employer] [facility] MONOCYTES 5 % 06/03/2018 5:30 AM [facility] [employer] [facility] EOSINOPHILS 1 % 06/03/2018 5:30 AM [facility] [employer] [facility] BASOPHILS 0 % 06/03/2018 5:30 AM [facility] [employer] [facility] IMMATURE GRANULOCYTES 1 % 06/03/2018 5:30 AM [facility] [employer] [facility] Comment:IG (Immature Granulo cyte) count includes Metamyelocytes, Myelocytes, and Promyelocytes NEUTROPHIL ABSOLUTE 5.56 1.90 - 7.00 K/uL 06/03/2018 5:30 AM [facility] LYMPHOCYTE ABSOLUTE 3.70 0.70 - 4.50 K/uL 06/03/2018 5:30 AM [facility] MONOCYTE ABSOLUTE 0.51 0.10 - 1.30 K/uL 06/03/2018 5:30 AM [facility] [employer] [facility] EOSINOPHIL ABSOLUTE 0.13 0.00 - 0.70 K/uL 06/03/2018 5:30 AM [facility] [employer] [facility] BASOPHILS ABSOLUTE 0.04 0.00 - 0.20 K/uL 06/03/2018 5:30 AM [facility] [employer] [facility] IMMATURE GRANULOCYTES ABSOLUTE 0.07(H) 0.00 - 0.03 K/uL 06/03/2018 5:30 AM [facility] [employer] [facility] Blood Venipuncture / Unknown 06/03/2018 4:32 AM ICE SCRAPER 06/03/2018 5:08 AM ICE SCRAPER Mc Stinson MD HEMATOLOGY ORDERABLE S [facility]# [id number] [address] [place] [address] * (ABNORMAL) POC GLUCOSE (06/03/2018 4:20 AM ICE SCRAPER) GLUCOSE POC 158(H) 74 - 99 mg/dL 06/03/2018 4:52 AM [facility] LABORATORY [facility] DIRECTOR OF PROGRAM MANAGEMENT NAME JESSICA JACKSON 06/03/2018 4:52 AM ICE SCRAPER [facility] LAB[facility]ATORY [facility] Whole blood specimen (specimen) 06/03/2018 4:20 AM ICE SCRAPER 06/03/2018 4:52 AM ICE SCRAPER Mc Stinson MD POINT OF CARE TESTJERONIMO Serrano Performing Organization Address [facility]/State/ZIP Co de Phone Number [facility]# [id number] [address] [place] [address] * (ABNORMAL) POC GLUCOSE (06/03/2018 3:21 AM ICE SCRAPER) GLUCOSE POC 176(H) 74 - 99 mg/dL 06/03/2018 3:38 AM [facility] LABORATORY [facility] DIRECTOR OF PROGRAM MANAGEMENT NAME JESSICA JACKSON 06/03/2018 3:38 AM [facility] Whole blood specimen (specimen) 06/03/2018 3:21 AM ICE SCRAPER 06/03/2018 3:38 AM ICE SCRAPER Mc Stinson MD POINT OF CARE TESTJERONIMO Serrano [facility]# [id number] [address] [place] [address] * (ABNORMAL) POC GLUCOSE (06/03/2018 2:17 AM ICE SCRAPER) GLUCOSE POC 180(H) 74 - 99 mg/dL 06/03/2018 2:33 AM ICE SCRAPER [facility] LABORATORY [facility] DIRECTOR OF PROGRAM MANAGEMENT NAME JESSICA JACKSON 06/03/2018 2:33 AM ICE SCRAPER [facility] LABORATORY SERVICES [facility] Whole blood specimen (specimen) 06/03/2018 2:17 AM ICE SCRAPER 06/03/2018 2:33 AM ICE SCRAPER Mc Stinson MD POINT OF CARE TESTIN G [facility] CLIA# [id number] [address] [place] [address] * (ABNORMAL) POC GLUCOSE (06/03/2018 1:21 AM ICE SCRAPER) GLUCOSE POC 190(H) 74 - 99 mg/dL 06/03/2018 1:40 AM ICE SCRAPER [facility] LABORATORY [facility] DIRECTOR OF PROGRAM MANAGEMENT NAME POC BRANDON REGALADON 06/03/2018 1:40 AM ICE SCRAPER [facility] LAB[facility]ATORY [facility] Whole blood specimen (specimen) 06/03/2018 1:21 AM ICE SCRAPER 06/03/2018 1:40 AM ICE SCRAPER Mc Stinson MD POINT OF CARE TESTIN G Performing Organization Address City/[facility]/ZIP Co de Phone Number [facility] CLIA# [id number] [address] [place] [address] * (ABNORMAL) POC GLUCOSE (06/03/2018 12:14 AM ICE SCRAPER) GLUCOSE POC 171(H) 74 - 99 mg/dL 06/03/2018 12:39 AM ICE SCRAPER [facility] LABORATORY [facility] DIRECTOR OF PROGRAM MANAGEMENT NAME POC LUCAS BEASLEY 06/03/2018 12:39 AM ICE SCRAPER [facility] LAB[facility]AT[facility] Whole blood specimen (specimen) 06/03/2018 12:14 AM ICE SCRAPER 06/03/2018 12:39 AM ICE SCRAPER Ceasar Kelley MD POINT OF CARE TESTI NG [facility] CLIA# [id number] [address] [place] [address] * (ABNORMAL) POC GLUCOSE (06/02/2018 11:07 PM ICE SCRAPER) GLUCOSE POC 167(H) 74 - 99 mg/dL 06/02/2018 11:26 PM ICE SCRAPER [employer] LABORATORY SERVICES - [facility] DIRECTOR OF PROGRAM MANAGEMENT NAME POC LOIDA SALINAS 06/02/2018 11:26 PM [facility] LABORATORY SERVICES - [facility] Whole blood specimen (specimen) 06/02/2018 11:07 PM ICE SCRAPER 06/02/2018 11:26 PM ICE SCRAPER Ceasar Kelley MD POINT OF CARE TESTI NG Performing Organization Address City/State/[facility] Co de Phone Number [facility] LABORATORY SERVICES [facility] CLIA# [id number] [address] [place] [address] * URINALYSIS WITH REFLEX MICROSCOPIC (06/02/2018 7:11 PM ICE SCRAPER) COLOR UA Yellow Pale to Dark Yellow 06/02/2018 7:26 PM [facility] [employer] LABORATORY SERVICES - [facility] CLARITY UA Clear Clear 06/02/2018 7:26 PM [facility] [employer] LABORATORY SERVICES - [facility] SPECIFIC GRAVITY UA 1.013 1.003 - 1.035 06/02/2018 7:26 PM [facility] [employer] LABORATORY SERVICES - [facility] PH UA 7.0 5.0 - 8.0 06/02/2018 7:26 PM [facility] [employer] LABORATORY SERVICES - [facility] LEUKOCYTE ESTERASE UA Negative Negative 06/02/2018 7:26 PM [facility] [employer] LABORATORY SERVICES - [facility] NITRITE UA Negative Negative 06/02/2018 7:26 PM [facility] [employer] LABORATORY SERVICES - [facility] PROTEIN UA Negative Negative 06/02/2018 7:26 PM [facility] [employer] LABORATORY SERVICES - [facility] GLUCOSE UA Negative Negative 06/02/2018 7:26 PM [facility] [employer] LABORATORY SERVICES - . [facility] KETONES UA Negative Negative 06/02/2018 7:26 PM [facility] [employer] LABORATORY SERVICES - [facility] UROBILINOGEN UA Normal <2.0 mg/dL 9 7:26 PM ICE SCRAPER [employer] LABORATORY SERVICES - [facility] BILIRUBIN UA Negative Negative 06/02/2018 7:26 PM ICE SCRAPER [facility] LABORATORY [facility] BLOOD UA Negative Negative 06/02/2018 7:26 PM ICE SCRAPER [facility] LAB[facility]ATORY [facility] Urine URINE SPECIMEN OBTAINED BY CLEAN CATCH PROCEDURE / Unknown Collection / Unknown 06/02/2018 7:11 PM ICE SCRAPER 06/02/2018 7:11 PM ICE SCRAPER Ceasar Kelley MD URINE ORDERABLES Performing Organization Address [facility] Co de Phone Number [id number] [address] [place] [address] * (ABNORMAL) TRIGLYCERIDE (06/02/2018 6:50 PM ICE SCRAPER) Pathologist [facility] TRIGLYCERIDE 1,009(H) <150 mg/dL 06/02/2018 8:26 PM ICE SCRAPER [facility] LABORATORY [facility] Blood Venipuncture / Unknown 06/02/2018 6:50 PM ICE SCRAPER 06/02/2018 7:03 PM ICE SCRAPER Narrative [facility] LABORATORY [facility] - 06/02/2018 8:26 PM ICE SCRAPER TRIGLYCERIDES ? mg/dL Normal ?< 150 Borderline High ?150 - 199 High ? 200 - 499 Very High ? >= 500 Based on AHA/NCEP Guidelines. Ceasar Kelley MD CHEMISTRY ORDERABLE S Performing Organization Address [facility] de Phone Number [facility]# [id number] [address] [place] [address] * LIPASE (06/02/2018 6:50 PM ICE SCRAPER) Pathologist [facility] LIPASE 49 13 - 60 U/L 06/02/2018 7:59 PM ICE SCRAPER [facility] LABORATORY [facility] Blood Venipuncture / Unknown 06/02/2018 6:50 PM ICE SCRAPER 06/02/2018 7:03 PM ICE SCRAPER Cesaar Kelley MD CHEMISTRY ORDERABLE S [facility] [employer] SERVICES - [facility]# [id number] [place] [address] * (ABNORMAL) COMPREHENSIVE METABOLIC PANEL (06/02/2018 6:50 PM ICE SCRAPER) SODIUM 138 136 - 145 mmol/L 06/02/2018 8:00 PM [facility] [employer] [facility] POTASSIUM 4.4 3.5 - 5.0 mmol/L 06/02/2018 8:00 PM [facility] [employer] SERVICES - [facility] Comment: Slightly hemolyzed. Result may be falsely elevated. CHLORIDE 98 98 - 107 mmol/L 06/02/2018 8:00 PM [facility] [employer] [facility] CO2 25 22 - 29 mmol/L 06/02/2018 8:00 PM [facility] [employer] [facility] CALCIUM 10.4(H) 8.6 - 10.2 mg/dL 06/02/2018 8:00 PM [facility] [employer] [facility] BUN 11 6 - 20 mg/dL 06/02/2018 8:00 PM [facility] LABORATORY [facility] CREATININE 0.58 0.51 - 0.95 mg/dL 06/02/2018 8:00 PM [facility] [employer] [facility] GLUCOSE 174(H) 74 - 99 mg/dL 06/02/2018 8:00 PM [facility] [employer] [facility] TOTAL PROTEIN 7.2 6.7 - 8.6 g/dL 06/02/2018 8:00 PM [facility] [employer] [facility] ALBUMIN 4.8 3.5 - 5.2 g/dL 06/02/2018 8:00 PM [facility] [employer] [facility] BILIRUBIN TOTAL <0.2(L) 0.3 - 1.2 mg/dL 06/02/2018 8:00 PM [facility] [employer] LABORATORY [facility] ALKALINE PHOSPHATASE 66 35 - 104 U/L 06/02/2018 8:00 PM [facility] [employer] LABORATORY SERVICES [facility]. [facility] AST 22 <33 U/L 06/02/2018 8:00 PM [facility] LABORATORY SERVICES - . [facility] Comment: Hemolysis present. Result may be falsely elevated. ALT 19 <34 U/L 06/02/2018 8:00 PM [facility] [employer] [facility] GFR >60 >=60 mL/min/1.7 3 sq meter 06/02/2018 8:00 PM [facility] [facility] Comment: eGFR has not been validated for [...] GFR, >60 >=60 mL/min/1.7 3 sq meter 06/02/2018 8:00 PM [facility] [facility] ANION GAP 15 8 - 16 mmol/L 06/02/2018 8:00 PM [facility] Blood Venipuncture / Unknown 06/02/2018 6:50 PM ICE SCRAPER 06/02/2018 7:03 PM [facility] - 06/02/2018 8:00 PM ICE SCRAPER Samples containing indocyanine green cause interferences on Total and/or Direct Bilirubin and must not be measured. Ceasar Kelley MD CHEMISTRY ORDERABLE S [facility]# [id number] [facility] [address] [address] * (ABNORMAL) CBC WITH DIFFERENTIAL (06/02/2018 6:50 PM ICE SCRAPER) WBC 12.4(H) 4.0 - 9.8 K/uL 06/02/2018 7:12 PM [facility] RBC 4.17 3.90 - 4.90 M/uL 06/02/2018 7:12 PM [facility] HEMOGLOBIN 12.9 11.8 - 14.8 g/dL 06/02/2018 7:12 PM [facility] LABORATORY SERVICES - [facility] HEMATOCRIT 37.1 35.5 - 44.0 % 06/02/2018 7:12 PM [facility] [employer] LABORATORY SERVICES - . [facility] MCV 89.0 82.0 - 99.0 fL 06/02/2018 7:12 PM ICE SCRAPER [employer] LABORATORY SERVICES - [facility] MCH 30.9 27.2 - 32.6 pg 06/02/2018 7:12 PM [facility] [employer] LABORATORY SERVICES - [facility] MCHC 34.8 31.5 - 35.5 g/dL 06/02/2018 7:12 PM [facility] [employer] LABORATORY SERVICES - [facility] RDW 13.8 11.5 - 14.5 % 06/02/2018 7:12 PM [facility] [employer] LABORATORY SERVICES - [facility] RDW-STDEV 45.3 37.1 - 48.7 fL 06/02/2018 7:12 PM [employer] LABORATORY SERVICES - . [facility] PLATELETS 326 140 - 350 K/uL 06/02/2018 7:12 PM [facility] [employer] LABORATORY SERVICES - [facility] MPV 9.0(L) 9.3 - 12.4 fL 06/02/2018 7:12 PM [employer] LABORATORY SERVICES - . [facility] NEUTROPHILS 61 % 06/02/2018 7:12 PM [facility] [employer] LABORATORY SERVICES - . [facility] LYMPHOCYTES 32 % 06/02/2018 7:12 PM [employer] LABORATORY SERVICES - . [facility] MONOCYTES 5 % 06/02/2018 7:12 PM [employer] LABORATORY SERVICES - . [facility] EOSINOPHILS 1 % 06/02/2018 7:12 PM [employer] LABORATORY SERVICES - . [facility] BASOPHILS 1 % 06/02/2018 7:12 PM [employer] LABORATORY SERVICES - [facility] IMMATURE GRANULOCYTES 1 % 06/02/2018 7:12 PM [facility] [employer] [employer] LABORATORY SERVICES - . [facility] Comment:IG (Immature Granulo cyte) count includes Metamyelocytes, Myelocytes, and Promyelocytes NEUTROPHIL ABSOLUTE 7.55(H) 1.90 - 7.00 K/uL 06/02/2018 7:12 PM [facility] [employer] LABORATORY SERVICES - . [facility] LYMPHOCYTE ABSOLUTE 4.00 0.70 - 4.50 K/uL 06/02/2018 7:12 PM [facility] [employer] LABORATORY SERVICES - . [facility] MONOCYTE ABSOLUTE 0.58 0.10 - 1.30 K/uL 06/02/2018 7:12 PM [facility] LABORATORY SERVICES - [facility] EOSINOPHIL ABSOLUTE 0.13 0.00 - 0.70 K/uL 06/02/2018 7:12 PM [employer] LABORATORY SERVICES - [facility] BASOPHILS ABSOLUTE 0.06 0.00 - 0.20 K/uL 06/02/2018 7:12 PM [employer] [facility] LABORATORY SERVICES - [facility] IMMATURE GRANULOCYTES ABSOLUTE 0.10(H) 0.00 - 0.03 K/uL 06/02/2018 7:12 PM [employer] [facility] LABORATORY SERVICES - [facility] Blood Venipuncture / Unknown 06/02/2018 6:50 PM [employer] 06/02/2018 7:03 PM [employer] Ceasar Kelley MD HEMATOLOGY ORDERABL ES [facility] LABORATORY [facility]# [id number] [facility] [place] [address] documented in this encounter Visit Diagnoses Diagnosis Chylomicronemia syndrome- Primary Hyperchylomicronemia Recurrent vomiting Vomiting alone Hypertriglyceridemia Pure hyperglyceridemia Abdominal pain Abdominal pain, unspecified site History of plasmapheresis Hypertriglyceridemia Pure hyperglyceridemia Type 2 diabetes mellitus without complication, with long-term current use of insulin documented in this encounter Administered Medications Inactive Administered Medications - up to 3 most recent administrations Medication Order MAR Action Action Date Dose Rate Site acetaminophen (TYLENOL) tablet 650 mg 650 mg, Oral, EVERY 6 HOURS PRN, Starting on Sat06/03/18 at 0005, Until Sat06/05/18 at 2003, Other (See Comment), See admin instructions, Routine Given 06/04/2018 7:56 AM ICE SCRAPER 650 mg Given 06/04/2018 2:28 AM ICE SCRAPER 650 mg Given 06/03/2018 2:35 PM ICE SCRAPER 650 mg atorvastatin (LIPITOR) tablet 80 mg 80 mg, Oral, DAILY AT BEDTIME, First dose on Sat06/03/18 at 2100, Until Discontinued, Routine Given 06/04/2018 9:00 PM ICE SCRAPER 80 mg Given 06/03/2018 8:14 PM ICE SCRAPER 80 mg citalopram (CeleXA) tablet 40 mg 40 mg, Oral, DAILY AT BEDTIME, First dose on Sat06/03/18 at 2100, Until Discontinued, Routine Given 06/04/2018 8:59 PM ICE SCRAPER 40 mg Given 06/03/2018 8:14 PM ICE SCRAPER 40 mg dextrose 5% - lactated ringers infusion IV, at 100 mL/hr, CONTINUOUS, Starting on Sat06/02/18 at 2300, Until Sat06/05/18 at 2002, Routine Bag Switched 06/05/2018 12:52 AM ICE SCRAPER 100 mL/hr Rate Verify 06/04/2018 7:00 PM ICE SCRAPER 100 mL/hr Restarted 06/04/2018 6:26 PM ICE SCRAPER 100 mL/hr dextrose 5% - sodium chloride 0.9% infusion IV, at 40 mL/hr, SEE ADMIN INSTRUCTIONS, Starting on Sat06/02/18 at 2254, Until Sat06/05/18 at 2002, Routine dextrose 50% (D50) syringe 12.5 Gram 12.5 Gram, IV, SEE ADMIN INSTRUCTIONS, Starting on Sat06/02/18 at 2254, Until Sat06/05/18 at 2002, Routine dextrose 50% (D50) syringe 25 Gram 25 Gram, IV, SEE ADMIN INSTRUCTIONS, Starting on Sat06/02/18 at 2254, Until Sat06/05/18 at 2002, Routine dicyclomine (BENTYL) capsule 10 mg 10 mg, Oral, FOUR TIMES DAILY PRN, Starting on Sat06/04/18 at 0959, Until Sat06/05/18 at 2002, Pain, Nausea, Routine Given 06/05/2018 1:20 PM ICE SCRAPER 10 mg Given 06/05/2018 1:32 AM ICE SCRAPER 10 mg Given 06/04/2018 6:23 PM ICE SCRAPER 10 mg diphenhydrAMINE (BENADRYL) tablet 25 mg 25 mg, Oral, ONE TIME ONLY, 1 dose, On Sat06/03/18 at 0800, Routine Given 06/03/2018 8:31 AM ICE SCRAPER 25 mg diphenhydrAMINE (BENADRYL) tablet 25 mg 25 mg, Oral, EVERY 8 HOURS PRN, Starting on Sat06/03/18 at 1417, Until Sat06/03/18 at 1952, Allergies, Itching, Routine Given 06/03/2018 2:34 PM ICE SCRAPER 25 mg diphenhydrAMINE (BENADRYL) tablet 25 mg 25 mg, Oral, EVERY 6 HOURS PRN, Starting on Sat06/03/18 at 2000, Until Sat06/05/18 at 2002, Allergies, Itching, Routine Given 06/05/2018 10:04 AM ICE SCRAPER 25 mg Given 06/05/2018 12:44 AM ICE SCRAPER 25 mg Given 06/04/2018 6:23 PM ICE SCRAPER 25 mg enoxaparin (LOVENOX) injection 40 mg 40 mg, subCUT, EVERY 24 HOURS, First dose on Sat06/03/18 at 2100, Until Discontinued, Routine Given 06/04/2018 9:00 PM ICE SCRAPER 40 mg Abdomen, Right Lower Quadrant Given 06/03/2018 8:16 PM ICE SCRAPER 40 mg Ab dominal Tissue fenofibrate (LOFIBRA) tablet 160 mg 160 mg, Oral, DAILY, First dose on Sat06/03/18 at 0900, Until Discontinued, Routine Given 06/05/2018 10:00 AM ICE SCRAPER 160 mg Given 06/04/2018 9:00 AM ICE SCRAPER 160 mg Given 06/03/2018 12:33 PM ICE SCRAPER 160 mg glucagon HCl 1 mg injection 1 mg 1 mg, IM, SEE ADMIN INSTRUCTIONS, Starting on Sat06/02/18 at 2254, Until Sat06/05/18 at 2002, Routine insulin glargine (LANTUS) injection 24 Units 24 Units, subCUT, DAILY, First dose on Sat06/05/18 at 1000, Until Discontinued, Routine, If ordered at or before 3:00 pm give dose now and start daily with breakfast tomorrow. If ordered after 3:00 pm give dose now and start daily at bedtime tomorrow. Given 06/05/2018 9:58 AM ICE SCRAPER 24 Units Arm, Right Upper insulin lispro (HumaLOG) variable dose injection subCUT, THREE TIMES DAILY WITH MEALS, First dose on Sat06/05/18 at 0900, Until Discontinued, Routine insulin lispro (HumaLOG) variable dose injection subCUT, DAILY AT BEDTIME, First dose on Sat06/05/18 at 2100, Until Discontinued, Routine insulin regular (HUMULIN R,NOVOLIN R) 100 Units in sodium chloride 0.9% 100 mL infusion 2.5 Units/hr (2.5 mL/hr), IV, TITRATE, Starting on Sat06/02/18 at 2330, Until Sat06/05/18 at 2002 Rate Change 06/05/2018 3:55 AM ICE SCRAPER 2.25 Units/hr 2.3 mL/hr Rate Change 06/05/2018 1:39 AM ICE SCRAPER 3 Units/hr 3 mL/hr Rate Change 06/04/2018 11:30 PM ICE SCRAPER 4 Units/hr 4 mL/hr lactated ringers infusion IV, at 150 mL/hr, CONTINUOUS, Starting on Sat06/02/18 at 2300, Until Sat06/05/18 at 2002, Routine levothyroxine (SYNTHROID) tablet 200 mcg 200 mcg, Oral, DAILY EARLY, First dose on Sat06/03/18 at 0600, Until Discontinued, Routine Given 06/05/2018 6:38 AM ICE SCRAPER 200 mcg Given 06/04/2018 5:08 AM ICE SCRAPER 200 mcg Given 06/03/2018 5:25 AM ICE SCRAPER 200 mcg LORazepam (ATIVAN) tablet 1 mg 1 mg, Oral, TWO TIMES DAILY PRN, Starting on Sat06/03/18 at 0001, Until Sat06/05/18 at 2002, Anxiety, Routine Given 06/04/2018 6:23 PM ICE SCRAPER 1 mg Given 06/04/2018 7:57 AM ICE SCRAPER 1 mg Given 06/03/2018 11:37 AM ICE SCRAPER 1 mg morphine 4 mg/mL injection 2 mg 2 mg, IV, EVERY 6 HOURS PRN, Starting on Sat06/03/18 at 0001, Until Sat06/03/18 at 0850, Pain (See admin instructions), Routine Given 06/03/2018 3:31 AM ICE SCRAPER 2 mg morphine 4 mg/mL injection 2 mg 2 mg, IV, EVERY 4 HOURS PRN, Starting on Sat06/03/18 at 0900, Until Sat06/04/18 at 0959, Pain (See admin instructions), Routine Given 06/04/2018 8:53 AM ICE SCRAPER 2 mg Given 06/03/2018 3:42 PM ICE SCRAPER 2 mg Given 06/03/2018 10:20 AM ICE SCRAPER 2 mg morphine 4 mg/mL injection 2 mg 2 mg, IV, EVERY 6 HOURS PRN, Starting on Sat06/04/18 at 1257, Until Sat06/05/18 at 2003, Pain (See admin instructions), Routine Given 06/05/2018 6:42 AM ICE SCRAPER 2 mg Given 06/05/2018 12:44 AM ICE SCRAPER 2 mg Given 06/04/2018 6:24 PM ICE SCRAPER 2 mg morphine injection 6 mg 6 mg, IV, ONE TIME ONLY, 1 dose, On Sat06/02/18 at 2000, Routine Given 06/02/2018 8:07 PM ICE SCRAPER 6 mg morphine injection 6 mg 6 mg, IV, ONE TIME ONLY, 1 dose, On Sat06/02/18 at 2115, Routine Given 06/02/2018 9:22 PM ICE SCRAPER 6 mg niacin (NIACOR) tablet 500 mg 500 mg, Oral, TWO TIMES DAILY, First dose on Sat06/03/18 at 0900, Until Discontinued, Routine Given 06/05/2018 10:00 AM ICE SCRAPER 500 mg Given 06/04/2018 9:00 PM ICE SCRAPER 500 mg Given 06/04/2018 11:20 AM ICE SCRAPER 500 mg ondansetron (ZOFRAN ODT) tablet 4 mg 4 mg, Oral, EVERY 6 HOURS PRN, Starting on Sat06/03/18 at 0001, Until Sat06/05/18 at 2002, Nausea/Emesis, Routine Given 06/04/2018 4:48 PM ICE SCRAPER 4 mg Given 06/03/2018 9:39 AM ICE SCRAPER 4 mg Given 06/03/2018 3:32 AM ICE SCRAPER 4 mg ondansetron (ZOFRAN) 4 mg/2 mL injection 4 mg 4 mg, IV, ONE TIME ONLY, 1 dose, On Sat06/02/18 at 1900, Routine Given 06/02/2018 6:52 PM ICE SCRAPER 4 mg ondansetron (ZOFRAN) 4 mg/2 mL injection 4 mg 4 mg, IV, ONE TIME ONLY, 1 dose, On Sat06/02/18 at 2000, Routine Given 06/02/2018 8:08 PM ICE SCRAPER 4 mg ONDANSETRON HCL (PF) 4 MG/2 ML INJECTION SOLUTION (CABINET OVERRIDE) 1 dose, Starting on Sat06/02/18 at 1852, Until Sat06/02/18 at 1852, Wilga CHIDILL: cabinet override oxyCODONE-acetaminophen (PERCOCET) 5-325 mg per tablet 1 Tablet 1 Tablet, Oral, EVERY 4 HOURS PRN, Starting on Sat06/03/18 at 0005, Until Sat06/05/18 at 2003, Pain, Routine Given 06/05/2018 10:01 AM ICE SCRAPER 1 Tablet Given 06/05/2018 3:55 AM ICE SCRAPER 1 Tablet Given 06/04/2018 11:11 PM ICE SCRAPER 1 Tablet pantoprazole (PROTONIX) tablet 40 mg 40 mg, Oral, TWO TIMES DAILY, First dose on Sat06/03/18 at 0115, Until Discontinued, Routine Given 06/05/2018 10:01 AM ICE SCRAPER 40 mg Given 06/04/2018 8:59 PM ICE SCRAPER 40 mg Given 06/04/2018 9:00 AM ICE SCRAPER 40 mg prochlorperazine maleate (COMPAZINE) tablet 5 mg 5 mg, Oral, EVERY 6 HOURS PRN, Starting on Sat06/03/18 at 0753, Until Katie 06/05/18 at 2003, Nausea/Emesis, Routine Given 06/04/2018 6:23 PM ICE SCRAPER 5 mg Given 06/04/2018 11:21 AM ICE SCRAPER 5 mg Given 06/03/2018 8:31 AM ICE SCRAPER 5 mg sodium chloride 0.9% bolus solution 1,000 mL 1,000 mL, IV, ONE TIME ONLY, 1 dose, On Sat06/02/18 at 2000, at 1,000 mL/hr, Administer over 60 Minutes, Routine New Bag 06/02/2018 8:05 PM ICE SCRAPER 1,000 mL 1000 mL/hr traZODone (DESYREL) tablet 100 mg 100 mg, Oral, DAILY AT BEDTIME, First dose on Sat06/03/18 at 2100, Until Discontinued, Routine Given 06/04/2018 9:00 PM ICE SCRAPER 100 mg Given 06/03/2018 8:14 PM ICE SCRAPER 100 mg documented in this encounter Active and Recently Administered Medications Times are shown in ICE SCRAPER. Scheduled Medication Order 06/03/2018 06/04/2018 06/05/2018 atorvastatin (LIPITOR) tablet 80 mg 80 mg, Oral, DAILY AT BEDTIME, First dose on Sat06/03/18 at 2100, Until Discontinued, Routine 2013 (Given - Provider: BLAISE Moreno) 2099 (Given - Provider: Yesy Anders RN) citalopram (CeleXA) tablet 40 mg 40 mg, Oral, DAILY AT BEDTIME, First dose on Sat06/03/18 at 2100, Until Discontinued, Routine 2013 (Given - Provider: BLAISE Moreno) 2058 (Given - Provider: Yesy Anders RN) dextrose 5% - sodium chloride 0.9% infusion IV, at 40 mL/hr, SEE ADMIN INSTRUCTIONS, Starting on Sat06/02/18 at 2254, Until Sat06/05/18 at 2002, Routine dextrose 50% (D50) syringe 12.5 Gram 12.5 Gram, IV, SEE ADMIN INSTRUCTIONS, Starting on Sat06/02/18 at 2254, Until Sat06/05/18 at 2002, Routine dextrose 50% (D50) syringe 25 Gram 25 Gram, IV, SEE ADMIN INSTRUCTIONS, Starting on Sat06/02/18 at 2254, Until Sat06/05/18 at 2002, Routine diphenhydrAMINE (BENADRYL) tablet 25 mg (COMPLETED) 25 mg, Oral, ONE TIME ONLY, 1 dose, On Sat06/03/18 at 0800, Routine 0831 (Given - Provider: Eda Esparza RN) enoxaparin (LOVENOX) injection 40 mg 40 mg, subCUT, EVERY 24 HOURS, First dose on Sat06/03/18 at 2100, Until Discontinued, Routine 2016 (Given - Provider: BLAISE Moreno) 2100 (Given - Provider: Yesy Anders, CLAU) fenofibrate (LOFIBRA) tablet 160 mg 160 mg, Oral, DAILY, First dose on Sat06/03/18 at 0900, Until Discontinued, Routine 1233 (Given - Provider: Eda Esparza RN) 0900 (Given - Provider: Loc Healy RN) 1000 (Given - Provider: Abhay Weber, CLAU) glucagon HCl 1 mg injection 1 mg 1 mg, IM, SEE ADMIN INSTRUCTIONS, Starting on Sat06/02/18 at 2254, Until Sat06/05/18 at 2002, Routine insulin glargine (LANTUS) injection 24 Units 24 Units, subCUT, DAILY, First dose on Sat06/05/18 at 1000, Until Discontinued, Routine, If ordered at or before 3:00 pm give dose now and start daily with breakfast tomorrow. If ordered after 3:00 pm give dose now and start daily at bedtime tomorrow. 09 (Given - Provider: Abhay Weber, CLAU) insulin lispro (HumaLOG) variable dose injection subCUT, THREE TIMES DAILY WITH MEALS, First dose on Sat06/05/18 at 0900, Until Discontinued, Routine 0900 (Not Given - Provider: Abhay Weber RN - Reason: Patient condition)1200 (Not Given - Provider: Abhay Weber RN - Reason: Lab results)1700 (Due) insulin lispro (HumaLOG) variable dose injection subCUT, DAILY AT BEDTIME, First dose on Sat06/05/18 at 2100, Until Discontinued, Routine levothyroxine (SYNTHROID) tablet 200 mcg 200 mcg, Oral, DAILY EARLY, First dose on Sat06/03/18 at 0600, Until Discontinued, Routine 0525 (Given - Provider: Humaira Regalado RN) 0508 (Given - Provider: BLAISE Moreno) 0638 (Given - Provider: Yesy Anders, CLAU) naloxone (NARCAN) 0.4 mg/mL injection 0.1 mg 0.1 mg, IV, SEE ADMIN INSTRUCTIONS, Starting on Sat06/03/18 at 0103, Until Sat06/05/18 at 2003, Routine niacin (NIACOR) tablet 500 mg 500 mg, Oral, TWO TIMES DAILY, First dose on Sat06/03/18 at 0900, Until Discontinued, Routine 1233 (Given - Provider: Eda Esparza RN)2017 (Refused - Provider: BLAISE Moreno) 1120 (Given - Provider: Loc Healy, CLAU)2099 (Given - Provider: Yesy Anders, CLAU) 1000 (Given - Provider: Abhay Weber, CLAU) pantoprazole (PROTONIX) tablet 40 mg 40 mg, Oral, TWO TIMES DAILY, First dose on Sat06/03/18 at 0115, Until Discontinued, Routine 0140 (Given - Provider: Humaira Regalado RN)1044 (Given - Provider: Eda Esparza RN)2012 (Given - Provider: BLAISE Moreno) 0900 (Given - Provider: Loc Healy, CLAU)205 (Given - Provider: Yesy Anders, CLAU) 1001 (Given - Provider: Abhay Weber, CLAU) traZODone (DESYREL) tablet 100 mg 100 mg, Oral, DAILY AT BEDTIME, First dose on Sat06/03/18 at 2100, Until Discontinued, Routine 2014 (Given - Provider: BLAISE Moreno) 2099 (Given - Provider: Yesy Anders, CLAU) Continuous Medication Order 06/03/2018 06/04/2018 06/05/2018 dextrose 5% - lactated ringers infusion IV, at 100 mL/hr, CONTINUOUS, Starting on Sat06/02/18 at 2300, Until Katie 06/05/18 at 2003, Routine 0015 (New Bag - Provider: Gabi Holland RN)0015 (Paused - Provider: Humaira Regalado RN)0016 (Restarted - Provider: Humaira Regalado RN)0200 (Rate Verify - Provider: Humaira Regalado RN)0300 (Rate Verify - Provider: Humaira Regalado RN)0333 (Paused - Provider: Humaira Regalado RN)0335 (Restarted - Provider: Humaira Regalado RN)0400 (Rate Verify - Provider: Humaira Regalado RN)0427 (Paused - Provider: Humaira Regalado RN)0431 (Restarted - Provider: Humaira Regalado RN)0500 (Rate Verify - Provider: Humaira Regalado RN)0521 (Rate Change - Provider: Humaira Regalado RN)0522 (Rate Change - Provider: Humaira Regalado RN)0600 (Rate Verify - Provider: Humaira Regalado RN)0822 (Rate Change - Provider: BLAISE Moreno)0825 (Paused - Provider: BLAISE Moreno)0829 (Rate Change - Provider: BLAISE Moreno)1017 (Rate Change - Provider: BLAISE Moreno)1019 (Bag Switched - Provider: Eda Esparza RN)1019 (Rate Verify - Provider: BLAISE Moreno)1021 (Paused - Provider: BLAISE Moreno)1022 (Restarted - Provider: BLAISE Moreno)1521 (Rate Change - Provider: BLAISE Moreno)1522 (Rate Change - Provider: BLAISE Moreno)1545 (Paused - Provider: BLAISE Moreno)1546 (Restarted - Provider: BLAISE Moreno)1722 (Rate Change - Provider: BLAISE Moreno)1723 (Rate Change - Provider: Tamiko Lassiter, BLAISE)1724 (Paused - Provider: BLAISE Moreno)1728 (Restarted - Provider: BLAISE Moreno)194 (Paused - Provider: BLAISE Moreno)194 (Restarted - Provider: BLAISE Moreno)195 (Rate Change - Provider: BLAISE Moreno)2006 (Paused - Provider: BLAISE Moreno)2018 (New Bag - Provider: BLAISE Moreno)2018 (Rate Verify - Provider: BLAISE Moreno)2100 (Rate Verify - Provider: BLAISE Moreno)2300 (Rate Verify - Provider: BLAISE Moreno) 0118 (Rate Change - Provider: BLAISE Moreno)0122 (Rate Change - Provider: BLAISE Moreno)0123 (Rate Verify - Provider: BLAISE Moreno)0438 (Paused - Provider: BLAISE Moreno)0440 (Restarted - Provider: BLAISE Moreno)0504 (New Bag - Provider: BLAISE Moreno)0504 (Paused - Provider: BLAISE Moreno)0504 (Restarted - Provider: BLAISE Moreno)0504 (Paused - Provider: BLAISE Moreno)0505 (Restarted - Provider: BLAISE Moreno)0505 (Rate Verify - Provider: BLAISE Moreno)0506 (Paused - Provider: BLAISE Moreno)0508 (Restarted - Provider: BLAISE Moreno)0700 (Rate Verify - Provider: BLAISE Moreno)0800 (Rate Verify - Provider: Loc Healy, CLAU)0900 (Rate Verify - Provider: Loc Healy RN)1000 (Rate Verify - Provider: Loc Healy RN)1100 (Rate Verify - Provider: Loc A Adrian, RN)1200 (Rate Verify - Provider: Loc Healy RN)1300 (Rate Verify - Provider: Loc Healy RN)1400 (Rate Verify - Provider: Loc Healy RN)1515 (Bag Switched - Provider: Loc Healy RN)1600 (Rate Verify - Provider: Loc Healy RN)1700 (Rate Verify - Provider: Loc Healy, RN)1800 (Rate Verify - Provider: Loc Healy, RN)1825 (Paused - Provider: Loc Healy RN)1826 (Restarted - Provider: Loc Healy RN)1900 (Rate Verify - Provider: Loc Healy RN) 0052 (Bag Switched - Provider: Yesy Anders RN) insulin regular (HUMULIN R,NOVOLIN R) 100 Units in sodium chloride 0.9% 100 mL infusion 2.5 Units/hr (2.5 mL/hr), IV, TITRATE, Starting on Sat06/02/18 at 2330, Until Sat06/05/18 at 2002 0025 (New Bag - Provider: Gabi Holland RN)0026 (Rate Verify - Provider: Humaira Regalado RN)0124 (Rate Change - Provider: Humaira Regalado RN - Comment: BS 190,increased by 19 from 171. Increased rate by 0.5 units/hr.)0127 (Rate Verify - Provider: Humaira Regalado RN)0200 (Rate Verify - Provider: Humaira Regalado RN)0218 (Rate Change - Provider: Humaira Regalado RN - Comment: BS 180, down from 190, NO CHANGE)0300 (Rate Verify - Provider: Humaira Regalado RN)0322 (New Bag - Provider: Humaira Regalado RN - Comment: BS 176, decreased from 180, NO CHANGE)0323 (Rate Verify - Provider: Humaira Regalado RN)0400 (Rate Verify - Provider: Humaira Regalado RN)0421 (New Bag - Provider: Humaira Regalado RN - Comment: BS 158, down from 176, NO CHANGE)0422 (Paused - Provider: Humaira Regalado RN)0422 (Restarted - Provider: Humaira Regalado RN)0423 (Rate Verify - Provider: Humaira Regalado RN)0500 (Rate Verify - Provider: Humaira Regalado RN)0521 (New Bag - Provider: Humaira Regalado RN - Comment: BS 135, decreased from 158, NO CHANGE)0523 (Paused - Provider: Humaira Regalado RN)0523 (Restarted - Provider: Humaira Regalado RN)0600 (Rate Verify - Provider: Humaira Regalado RN)0626 (New Bag - Provider: Humaira Regalado RN - Comment: BS 146, increased from 135, NO CHANGE)0627 (Rate Verify - Provider: BLAISE Moreno)0718 (Rate Verify - Provider: Humaira Regalado RN - Comment: bs 134)0830 (Rate Verify - Provider: Eda Esparza RN - Comment: bs 136)0943 (Rate Verify - Provider: Eda Esparza RN - Comment: bs 130)1045 (Rate Verify - Provider: Eda Esparza RN - Comment: bs 134)1134 (Rate Verify - Provider: Eda Esparza RN - Comment: bs 152)1233 (Rate Verify - Provider: Eda Esparza RN - Comment: bs 131)1332 (Rate Verify - Provider: Eda Esparza RN - Comment: bs 116)1438 (Rate Change - Provider: Eda Esparza RN - Comment: decrease rate by 0.5 units/hr: 1.5-0.5= 1 unit/hr)1440 (Rate Verify - Provider: BLAISE Moreno)1533 (Rate Change - Provider: BLAISE Boyd - Comment: bs 107 decreased by 0.5u/hr now running at 0.5 u/hr)1534 (Rate Verify - Provider: BLAISE Moreno)1633 (Rate Verify - Provider: BLAISE Boyd - Comment: bs 124)1730 (Rate Verify - Provider: BLAISE Boyd - Comment: bs 115)1829 (Rate Verify - Provider: Eda Esparza RN - Comment: bs 118)193 (Rate Change - Provider: BLAISE Moreno)194 (Rate Verify - Provider: BLAISE Moreno)194 (Paused - Provider: BLAISE Moreno)1941 (Restarted - Provider: BLAISE Moreno)2025 (Rate Verify - Provider: BLAISE Moreno)2026 (Rate Verify - Provider: BLAISE Moreno - Comment: bg 152)2039 (Paused - Provider: BLAISE Moreno)2040 (Restarted - Provider: BLAISE Moreno)2099 (Rate Verify - Provider: BLAISE Moreno)213 (Rate Verify - Provider: BLAISE Moreno - Comment: bg 155)222 (Rate Verify - Provider: BLAISE Moreno - Comment: bg 140)2300 (Rate Verify - Provider: BLAISE Moreno)2332 (Rate Verify - Provider: BLAISE Moreno - Comment: BG 136) 0032 (Rate Verify - Provider: BLAISE Moreno - Comment: BG 132)0123 (Rate Verify - Provider: BLAISE Moreno - Comment: bg 115)0228 (New Bag - Provider: BLAISE Moreno)0231 (Paused - Provider: BLAISE Moreno)0231 (Restarted - Provider: BLAISE Moreno)0342 (Rate Verify - Provider: BLAISE Moreno - Comment: BG 119)0436 (Rate Verify - Provider: BLAISE Moreno - Comment: bg 135)0500 (Rate Verify - Provider: BLAISE Moreno - Comment: bg 128)0501 (Paused - Provider: BLAISE Moreno)0502 (Restarted - Provider: BLAISE Moreno)0630 (Rate Verify - Provider: BLAISE Moreno - Comment: bg 136)0631 (Paused - Provider: BLAISE Moreno)0631 (Restarted - Provider: BLAISE Moreno)0700 (Rate Verify - Provider: BLAISE Moreno)0730 (Rate Verify - Provider: Loc Healy RN - Comment: POC BS 131/no change)0800 (Rate Verify - Provider: Loc Healy RN)0830 (Rate Verify - Provider: Loc Healy RN - Comment: POC BS 135/no change)0900 (Rate Change - Provider: Loc Healy RN - Comment: POC BS 192/Increase by 1 unit to now 2 units)1000 (Rate Verify - Provider: Loc Healy RN)1050 (Rate Change - Provider: Loc Healy RN - Comment: POC BS 203/increase by 1 now drip at 3)1100 (Rate Verify - Provider: Loc Healy RN)1130 (Rate Change - Provider: Loc Healy RN - Comment: POC BS 178/no change)1230 (Rate Change - Provider: Loc Healy RN - Comment: POC BS 162/no change)1300 (Rate Verify - Provider: Loc Healy RN)1341 (Rate Change - Provider: Loc Healy RN - Comment: POC BS 201/increase by 2 units for total of 5 units)1400 (Rate Verify - Provider: Loc Healy RN - Comment: POC BS 156/no change)1500 (Rate Verify - Provider: Loc Healy RN - Comment: POC BS 131/no change)1630 (Rate Verify - Provider: Loc Healy RN - Comment: POC BS 121/no change)1730 (Rate Verify - Provider: Loc Healy RN - Comment: POC BS 115/no change)1741 (Rate Verify - Provider: Loc Healy RN - Comment: POC BS 115/no change)1800 (Rate Verify - Provider: Loc Healy RN)1825 (Paused - Provider: Loc Healy RN)1826 (Restarted - Provider: Loc Healy RN)1900 (Rate Verify - Provider: Loc Healy RN)194 (Rate Change - Provider: Yesy Anders, RN)2050 (Rate Verify - Provider: Yesy Anders RN - Comment: 93- no change)2051 (Rate Verify - Provider: Yesy Anders RN - Comment: 93 no change)213 (Bag Switched - Provider: Yesy Anders RN - Comment: 123)2330 (Rate Change - Provider: Yesy Anders RN - Comment: 102) 0139 (Rate Change - Provider: Yesy Anders RN - Comment: 107)0300 (Stopped - Provider: Yesy Anders RN - Comment: decreased by 25)0355 (Rate Change - Provider: Yesy Anders RN) lactated ringers infusion IV, at 150 mL/hr, CONTINUOUS, Starting on Sat06/02/18 at 2300, Until Sat06/05/18 at 2002, Routine 1500 (Not Given - Provider: Eda Esparza RN - Reason: Patient condition) PRN Medication Order 06/03/2018 06/04/2018 06/05/2018 acetaminophen (TYLENOL) tablet 650 mg 650 mg, Oral, EVERY 6 HOURS PRN, Starting on Sat06/03/18 at 0005, Until Sat06/05/18 at 2002, Other (See Comment), See admin instructions, Routine 0131 (Given - Provider: Humaira Regalado RN)0734 (Given - Provider: Eda Esparza RN)1435 (Given - Provider: Eda Esparza RN) 0228 (Given - Provider: BLAISE Moreno)0756 (Given - Provider: Loc Healy, CLAU) bisacodyl (DULCOLAX) rectal suppository 10 mg 10 mg, Rectal, DAILY PRN, Starting on Sat06/03/18 at 0103, Until Sat06/05/18 at 2002, Constipation, Routine dicyclomine (BENTYL) capsule 10 mg 10 mg, Oral, FOUR TIMES DAILY PRN, Starting on Sat06/04/18 at 0959, Until Sat06/05/18 at 2002, Pain, Nausea, Routine 1121 (Given - Provider: Loc Healy RN)1823 (Given - Provider: Loc Healy, CLAU) 0132 (Given - Provider: Yesy Anders RN)1320 (Given - Provider: Abhay Weber RN) diphenhydrAMINE (BENADRYL) tablet 25 mg (CANCELED) 25 mg, Oral, EVERY 8 HOURS PRN, Starting on Sat06/03/18 at 1417, Until Sat06/03/18 at 1952, Allergies, Itching, Routine 1434 (Given - Provider: Eda Esparza RN) diphenhydrAMINE (BENADRYL) tablet 25 mg 25 mg, Oral, EVERY 6 HOURS PRN, Starting on Sat06/03/18 at 2000, Until Katie 06/05/18 at 2003, Allergies, Itching, Routine 2015 (Given - Provider: BLAISE Moreno) 1121 (Given - Provider: Loc Healy, CLAU)1823 (Given - Provider: Loc Healy, CLAU) 0044 (Given - Provider: Yesy Anders RN)1004 (Given - Provider: Abhay Weber RN) docusate sodium (COLACE) capsule 100 mg 100 mg, Oral, TWO TIMES DAILY PRN, Starting on Sat06/03/18 at 0103, Until Sat06/05/18 at 2002, Constipation, Routine LORazepam (ATIVAN) tablet 1 mg 1 mg, Oral, TWO TIMES DAILY PRN, Starting on Sat06/03/18 at 0001, Until Katie 06/05/18 at 2002, Anxiety, Routine 0027 (Given - Provider: Gabi Holland RN)1137 (Given - Provider: BLAISE Boyd) 0757 (Given - Provider: Loc Healy RN)1823 (Given - Provider: Loc Healy RN) magnesium hydroxide (MILK OF MAGNESIA) oral suspension 30 mL 30 mL, Oral, DAILY PRN, Starting on Sat06/03/18 at 0103, Until Katie 06/05/18 at 2002, Constipation, Routine morphine 4 mg/mL injection 2 mg (CANCELED) 2 mg, IV, EVERY 6 HOURS PRN, Starting on Sat06/03/18 at 0001, Until Sat06/03/18 at 0850, Pain (See admin instructions), Routine 0331 (Given - Provider: Humaira Regalado RN) morphine 4 mg/mL injection 2 mg (CANCELED) 2 mg, IV, EVERY 4 HOURS PRN, Starting on Sat06/03/18 at 0900, Until Sat06/04/18 at 0959, Pain (See admin instructions), Routine 1020 (Given - Provider: Eda Esparza, RN)1542 (Given - Provider: Eda Esparza RN) 0853 (Given - Provider: Loc Healy RN) morphine 4 mg/mL injection 2 mg 2 mg, IV, EVERY 6 HOURS PRN, Starting on Sat06/04/18 at 1257, Until Sat06/05/18 at 2002, Pain (See admin instructions), Routine 1406 (Given - Provider: Loc Healy RN)1824 (Given - Provider: Loc Healy, CALU) 0044 (Given - Provider: Yesy Anders, RN)0642 (Given - Provider: Yesy Anders, CLAU) ondansetron (ZOFRAN ODT) tablet 4 mg 4 mg, Oral, EVERY 6 HOURS PRN, Starting on Sat06/03/18 at 0001, Until Sat06/05/18 at 2002, Nausea/Emesis, Routine 0332 (Given - Provider: Humaira Regalado RN)0939 (Given - Provider: Eda Esparza RN) 1648 (Given - Provider: Loc Healy RN) oxyCODONE-acetaminophe n (PERCOCET) 5-325 mg per tablet 1 Tablet 1 Tablet, Oral, EVERY 4 HOURS PRN, Starting on Sat06/03/18 at 0005, Until Sat06/05/18 at 2002, Pain, Routine 0026 (Given - Provider: Gabi Holland RN)0528 (Given - Provider: Humaira Regalado RN)0938 (Given - Provider: Eda Esparza RN)1335 (Given - Provider: Eda Esparza, CLAU)1833 (Given - Provider: Eda Esparza RN) 0047 (Given - Provider: BLAISE Moreno)0503 (Given - Provider: BLAISE Moreno)0830 (Given - Provider: oLc Healy RN)1122 (Given - Provider: Loc Healy RN)1648 (Given - Provider: Loc Healy RN)2311 (Given - Provider: Yesy Anders, RN) 0355 (Given - Provider: Yesy Anders, RN)1001 (Given - Provider: Abhay Weber, CLAU) prochlorperazine maleate (COMPAZINE) tablet 5 mg 5 mg, Oral, EVERY 6 HOURS PRN, Starting on Sat06/03/18 at 0753, Until Katie 06/05/18 at 2003, Nausea/Emesis, Routine 0831 (Given - Provider: Eda Esparza RN) 1121 (Given - Provider: Loc Healy, CLAU)1823 (Given - Provider: Loc Healy, CLAU) documented in this encounter Care Teams Network Support Relationship Specialty Start Date End Date Guerrero Middleton PA-C PCP - General Physician Board Operator 02/13/18 documented as of this encounter
--- OUTSIDE RECORDS SUMMARY | 2024-05-03 20:45 | XMS_ITS | Encounter Summary ---
Author Organization [facility] Address [address] [place] [address] Care Team Providers Care Resource Management Specialist Name Role Phone Guerrero Middleton PA-C Primary Care Provide r Reason for Visit * Reason Onset Date Comments Erroneous encounter-disregard 06/18/2018 Encounter Details Date Type Department Care Team (Late Contact Info) Description 06/18/2018 Telephone [facility] Heart [facility] Vascular At [address] [place] [phone] Marlys Mayer MD [address] [place] [address] [address] [place], [place] [id number] Erroneous encounter-disregard Social History Tobacco Use Types [facility] [phone] [place] [address] Marlys Mayer MD [address] [facility] [facility] [address] [place], [place] [id number] documented as of this encounter Results * LIPID PANEL (10/22/2018) Blood Marlys Mayer MD CHEMISTRY ORDERABLES [facility] [employer] [facility]# [id number] [address]rell[address] [place] [address] * (ABNORMAL) LIPID PANEL (06/18/2018 10:48 AM ENTERPRISE SALES PERSON) CHOLESTEROL 334(H) <200 mg/dL 06/18/2018 11:51 AM [facility] [email or web address] [facility] TRIGLYCERIDE 860(H) <150 mg/dL 06/18/2018 11:51 AM [facility] [employer] [facility] HDL 36(L) 40 - 59 mg/dL 06/18/2018 11:51 AM [facility] LDL CALCULATED <100 mg/dL 06/18/2018 11:51 AM [facility] [employer] [facility] Comment:Calculated LDL is no t accurate when the Triglyceride value exceeds 400. NON-HDL CHOLESTEROL 298(H) <130 mg/dL 06/18/2018 11:51 AM [facility] [employer] [facility] Blood Venipuncture / Unknown 06/18/2018 10:48 AM ENTERPRISE SALES PERSON 06/18/2018 10:54 AM [facility] [employer] [facility] - 06/18/2018 11:51 AM ENTERPRISE SALES PERSON TOTAL CHOLESTEROL ??mg/dL ??Desirable <200 ??Borderline high [...] Panels (NCEP/AMA) Marlys Mayer MD CHEMISTRY ORDERABLES [facility]# [id number] [address] [place] [address] documented in this encounter Visit Diagnoses Diagnosis Hypertriglyceridemia- Primary Pure hyperglyceridemia documented in this encounter Care Teams Resource Management Specialist Relationship Specialty Start Date End Date Guerrero Middleton PA-C PCP - General Physician Magnetic Resonance Imaging Coordinator 02/13/18 documented as of this encounter
--- OUTSIDE RECORDS SUMMARY | 2024-05-03 20:46 | XMS_ITS | Encounter Summary ---
Author Organization [facility] Address [address] [place] [address] Care Team Providers Care Tool Polisher Name Role Phone Guerrero Middleton PA-C Primary Care Provide r Reason for Visit * Reason Onset Date Comments Referral Request 04/04/2018 Dr Blake reno Encounter Details Date Type Department Care Team (Late st Contact Info) Description 04/04/2018 Telephone [facility] Heart and Vascular At [address] [place] [address] Marlys Mayer MD [address] [place] [address] [address] [place] [address] Referral Request (Dr Blake Darnell) Social History Tobacco Use Types Packs/Day Years [...] Telephone Encounter - Alexandra Kahn RN - 04/04/2018 10:59 AM DRY ROLLER Called Dr. Blake Herrera release office, left message on back line that we were giving a doctor to doctor referral for this patient. Left message that we would like the appointment before the end of the year, gave triglycerides and A1c level. Callback number left for any questions or if they were notgoing to call pt to schedule. ROLLER documented in this encounter Plan of Treatment Upcoming Encounters Date Type Department Care Team (Late st Contact Info) Description 09/14/2024 3:00 PM CDT Office Visit [facility] Heart and Vascular - [place] [address] [place] [phone] Marlys Mayer MD [address] [place] [address] documented as of this encounter Visit Diagnoses Not on filedocumented in this encounter Care Teams Tool Polisher Relationship Specialty Start Date End Date Guerrero Middleton PA-C PCP - General Physician Heel Cementer 02/13/18 documented as of this encounter
--- OUTSIDE RECORDS SUMMARY | 2024-05-03 20:46 | XMS_ITS | Encounter Summary ---
Author Organization [facility] Address [address] [place] [address] Care Team Providers Care Wire Bound Box Machine Helper Name Role Phone Guerrero Middleton PA-C Primary Care Provide r Reason for Visit * Reason Onset Date Comments Needs Appointment 03/06/2018 Encounter Details Date Type Department Care Team (Late st Contact Info) Description 03/06/[address] [facility] Heart and Vascular At [facility] [address] [facility] [address] [place] [address] Marlys Mayer MD [address] [place] [address] Needs Appointment Social History Tobacco Use Types Packs/Day Years Used Date Smoking Tobacco: Every Day Cigarettes 1 18 Alcohol Use Standard Drinks/Week Comments No 0 (1 standard drink = 0.6 oz pur e alcohol) Sex and Gender Information Value Date Recorded Sex Assigned at Not on file Gender Identity Not on file Sexual Orientation Not on file documented as of this encounter Miscellaneous Notes * Telephone Encounter - Tita Jessica RMA - 03/06/2018 4:34 PM CONVENTIONAL UNDERWRITER Appointment scheduled. ENTIONAL UNDERWRITER * Telephone Encounter - Thuy Campos - 03/06/2018 2:56 PM CST Patient was seen today with Dr. Mayer and would like to see her back in four weeks. I did not seeany available appointments for four weeks out.. Please contact the patient at [phone] to schedule this thank you. ENTIONAL UNDERWRITER documented in this encounter Plan of Treatment Upcoming Encounters Date Type Department Care Team (Late st Contact Info) Description 09/14/2024 3:00 PM CDT Office Visit [facility] Heart and Vascular - [place] [address] [place] [phone] Marlys Mayer MD [address] [place] [address] documented as of this encounter Visit Diagnoses Not on filedocumented in this encounter Care Teams Wire Bound Box Machine Helper Relationship Specialty Start Date End Date Guerrero Middleton PA-C PCP - General Physician Power Washer 02/13/18 documented as of this encounter
--- OUTSIDE RECORDS SUMMARY | 2024-05-03 20:46 | XMS_ITS | Encounter Summary ---
Author Organization [facility] Address [address] [place] [address] Care Team Providers Care Basket Filler Name Role Phone Guerrero Middleton PA-C Primary Care Provide r Reason for Visit * Reason Comments Abdominal Pain Ambulatory to ED wit h reports of my triglycerides are almost 4,000, and I'm having headaches, muscle cramps, elevated pulse, diarrhea, and nausea. States symptoms began over the last two weeks. Hx pancreatitis. Note in chart: Called patient, left message on home phone that Dr. Mayer wants the doctor to call her if patient goes to the emergency room. She said to insist that the doctor in the ER called Dr. Mayer directly. * Auth/Cert Specialty Diagnoses / Procedures Referred By Tequila bowman Referred To Contact Critical Care Medicine [facility] [address] [place] [address] Referral ID Status Reason Start Date Expiration Date Visits Re quested Visits Authorized [id number] 1 1 Encounter Details Date Type Department Care Team (Latest Contact Info) Description 05/16/2018 4:09 PM OFFICE ASST - 05/21/2018 6:18 PM OFFICE ASST Hospital Encounter [facility] [address] [place] [address] Eva Foreman MD NO ADDRESS ON FILE Debbie Avila MD [address] [facility] [address] [address] Loki Vences MD [address] [place] [address] Mnaan Dumont MD [address] [place] [address] Karen Thomas MD NO ADDRESS ON FILE Depression with anxiety Discharge Disposition: Home or Self Care Social [...] Sign Reading Time Taken Comments Blood Pressure 135/92 05/21/2018 5:54 PM OFFICE ASST Pulse 87 05/21/2018 5:54 PM OFFICE ASST Temperature 37.1 ??C (98.7 ??F) 05/21/2018 5:54 PM CS T Respiratory Rate 18 05/21/2018 5:54 PM OFFICE ASST Oxygen Saturation 97% 05/21/2018 5:54 PM OFFICE ASST Inhaled Oxygen Concentration - - Weight 85.7 kg (189 lb) 05/19/2018 8:26 PM OFFICE ASST Height 165.1 cm (5' 5 ) 05/19/2018 8:26 PM OFFICE ASST Body Mass Index 31.45 05/19/2018 8:26 PM OFFICE ASST documented in this encounter Discharge Summaries * Wendie Desai MD - 05/21/2018 9:30 PM CST [facility] Adult Discharge Summary Casandra Doss 42 y.o. female 1975 CSN: [id number] Date of Admission: 05/16/2018 Date of Discharge: 05/21/2018 Discharging Physician: Wendie Desai MD LOS: 5 days PCP: Guerrero Middleton PA-C Activity: activity as tolerated. Dispo: home Diet: Low fat diet. Code Status at Discharge: FULL Wound Care: keep wound clean and dry 45 Minutes spent in the d/c process today. Admitting Dx and Chief Complaint Chief Complaint Patient presents with ??? Abdominal Pain Ambulatory to ED with reports of my triglycerides are almost 4,000, and I'm having headaches, muscle cramps, elevated pulse, diarrhea, and nausea. States symptoms began over the last two weeks. Hx pancreatitis. Note in chart: Called patient, left message on home phone that Dr. Mayer wants the doctor to call her if patient goes to the emergency room. She said to insist that the doctor in the ER called Dr. Mayer directly. Acute pancreatitis Discharge Diagnoses and Relevant Hospital Course: Principal Problem: Acute pancreatitis Active Problems: Hypothyroidism Pancreatitis, recurrent Hypertriglyceridemia Depression with anxiety Tobacco use Type 2 diabetes mellitus without complication, with long-term current use of insulin Hyponatremia GERD (gastroesophageal reflux disease) History of plasmapheresis Casandra Doss is a 42 yo F with a PMH of severe hypertriglyceridemia with recurrent episodes of acutepancreatitis requiring apharesis x4 previously including most recently 04/09-04/14/18, GERD, DM-2, hypothyroidism, depression, and anxiety who presented to the ER with abdominal pain. The patient hadbeen seen by her lipidologist, Dr. Mayer, on 05/14/17 during which labs obtained and revealing TG of 3899 (up from 280 at discharge 04/14/18). Due to the marked elevation, she was advised to come tothe ER if any abdominal pain developed. On admission she stated she had been having increasingly sharp pain (currently 6/10) in her epigastrium radiating to her back for the past 2 days. She was treated with insulin infusion with D5 0.45 NS and plasmapheresis x3 with adequate decline in TG levels. TG decreased to 324 prior to discharge. Patient was able to tolerate bland diet withoutIV antiemetics or IV pain medicine and was discharged with instruction for close follow up with herlipidologist and PCP. Discharge medications and new prescriptions: Medication List START taking these medications oxyCODONE-acetaminophen 5-325 mg tablet Commonly known as: PERCOCET Take 1 tablet by mouth every 4 hours as needed for pain. Max Daily Amount: 6 Tablets Signed by: Wendie Desai MD Quantity: 15 Tablet Refills: 0 CONTINUE taking these medications citalopram 40 mg tablet Commonly known as: CeleXA Take 40 mg by mouth daily at bedtime. Refills: 0 fenofibrate 160 mg Tablet Commonly known as: LOFIBRA Take 1 Tab by mouth daily. Signed by: Prudence Gates MD Quantity: 90 Tab Refills: 0 insulin aspart protamine-aspart 100 unit/mL (70-30) pen syringe Commonly known as: NovoLOG MIX 70-30 Inject by subcutaneous injection 8 units breakfast 14 units lunch 18 units dinner Also with slidingscale. Refills: 0 insulin glargine 100 unit/mL injection [...] mg tablet Commonly known as: GLUCOPHAGE Take 1,000 mg by mouth 2 times daily with meals . Refills: 0 niacin 500 mg tablet Commonly known as: NIACOR Take 500 mg by mouth 2 times daily. Refills: 0 [id number]-Fish Oil [id number] Capsule Take 2 Caplets by mouth 2 [...] Your Medications These medications were sent to [place] [address] [facility] [address] Hours: Saturday-Saturday: 8 a.m. - 8 p.m., Saturday: 9 a.m. - 5 p.m., Saturday: 10 a.m. - 2 p.m. ?? ondansetron 4 mg Tablet, Rapid Dissolve ?? oxyCODONE-acetaminophen 5-325 mg tablet Consultants: IP CONSULT TO NUTRITION SERVICES Brief Synopsis of Diagnostic Studies This Admission (Please see full report for details): ?? TG 3147 on admission Labs and Studies from this Hospitalization Needing Follow Up: ?? follow TGs Discharge Lab Data (Please note date of lab as some may have preceeded admission) Lab Results Component Value Date/Time WBC 7.8 05/21/2018 06:48 AM HEMOGLOBIN 11.1 (L) 05/21/2018 06:48 AM HEMATOCRIT 33.5 (L) 05/21/2018 06:48 AM PLATELETS 184 05/21/2018 06:48 AM SODIUM 145 05/21/2018 06:48 AM CHLORIDE 102 05/21/2018 06:48 AM POTASSIUM 3.4 (L) 05/21/2018 06:48 AM CO2 29 05/21/2018 06:48 AM BUN 5 (L) 05/21/2018 06:48 AM CREATININE 0.59 05/21/2018 06:48 AM GLUCOSE 158 (H) 05/21/2018 06:48 AM INR 1.1 05/18/2018 09:14 AM AST 12 05/21/2018 06:48 AM ALT 9 05/21/2018 06:48 AM CRP 11.9 (H) 05/16/2018 04:39 PM Discharge Exam: BP (!) 135/92 (BP Location: Right arm, Patient Position (BP): Sitting) Pulse 87 Temp 98.7 ??F (37.1 ??C) (Oral) Resp 18 Ht 5' 5 (1.651 m) Wt 85.7 kg (189 lb) SpO2 97% BMI 31.45 kg/m?? Last documented weight: Weight: 85.7 kg (189 lb) (05/19/182025) Physical Exam: General alert, cooperative, no distress, appears stated age Lungs clear to auscultation bilaterally Heart regular rate and rhythm, S1, S2 normal, no murmur, click, rub or gallop Abdomen soft, nondistended, normal bowel sounds. Mild tenderness to palpation of epigastrium. Extremities Normal, no edema Skin Skin color, texture, turgor normal. No rashes or lesions Discharge Condition: improving. Follow-up: You must follow up with Guerrero Middleton PA-C in NO MORE THAN 7 DAYS Signed: Wendie Desai MD 05/21/2018, 9:31 PM CE ASST Associated attestation - Karen Thomas MD - 05/21/2018 10:38 PM OFFICE ASST [facility] Adult Hospitalist Attending Note I reviewed the medical record including the resident???s note (available as hyperlink below) on 05/21/2018. I reviewed and confirmed the history, physical findings, laboratory findings, assessment andplan with the resident on rounds. I also performed the critical or santos portion(s) of the service asdocumented below, and was directly involved in the management of the patient and supervised the care provided. I have reviewed the physical exam findings in the resident???s note; my notable physical exam findings include: No complaints this morning. Did have some abdominal pain requiring dilaudid this morning. General: NAD CV: RRR Lungs: CTAB Abdomen: Soft, nondistended I have reviewed the labs that were obtained over the last 24 hours. Notable amendments to the assessment and plan include: Acute pancreatitis - Significantly improved. Tolerated bland diet without IV pain medications. Recommended additional overnight observation; however patient declined and will follow-up with Dr. Mayer. IDDM- Patient was discharged after dinner at her request and her appetite has returned to normal. Ifollowed up with her given her late discharge. Once home she has resumed her home Lantus dose sinceher appetite has returned to normal. She endorses good control on her home regimen. Contacted patient who will check her glucose readings closely overnight and tomorrow. Discussed management of hypoglycemia in detail. She will be following with Dr. Rudd and will make an appointment with him. More than 30 minutes were spent in the care of this patient today; more than 50% was spent in discussion of expected course of disease, discussion of prognosis, discharge planning, coordination of care and discussion of lab and test results. Karen Thomas MD [facility] Hospitalist documented in this encounter Discharge Instructions * Discharge Instructions* Wendie Desai MD - 05/21/2018 4:13 PM OFFICE ASST Your discharging physician is Karen Thomas MD and may be reached at [phone] for any questions or concerns until you see your doctor. FOLLOW-UP Follow up with Guerrero Middleton PA-C in 1 week(s). Prescriptions given? Yes SIGNS AND SYMPTOMS TO REPORT Contact your health care provider if you experience any of the following symptoms: increase in painor unable to keep food or fluids down or any other concerning symptoms. Heart Patients: [...] is not relieved by nitroglycerin. Smoking Exposure: [facility] [place] all patients to decrease risks associated with smoking and second hand smoke exposure. If you smoke you are advised to quit. Ask your health care provider for advice if you need assistance to stop smoking. Avoid second-hand smoke exposure and do not let people smoke in your home. Please call [phone], our pulmonary rehabilitation department, to learn more about options to reduce your risks. ACTIVITY Your activity level is: no smoking. You may return to work/school call if not improving. DIET Your diet is: low fat, diabetic WOUND CARE For your wound/incision: keep wound clean and dry. CE ASST documented in this encounter Medications at Time of Discharge Medication Sig Dispensed Refills Start Date End Date traZODone (DESYREL) 100 mg tablet Take 100 mg by mouth daily at bedtime . ondansetron (ZOFRAN ODT) 4 mg Tablet, Rapid [...] by mouth 2 times daily . 09/26/2023 insulin aspart protamine-aspart (NovoLOG MIX 70-30) 100 unit/mL (70-30) pen syringe Inject by subcutaneous injection 8 units breakfast 14 units lunch 18 units dinner Also with sliding scale. 06/02/2018 [id number] A-Fish Oil [id number]-uo-abv-mcg Capsule Take 2 Caplets by mouth 2 times daily. 120 Capsule 3 12/10/2017 08/03/2018 spironolactone (ALDACTONE) 25 mg tablet Take 25 mg by mouth daily. 02/04/2019 rosuvastatin (CRESTOR) 20 mg tablet Take 20 mg by mouth daily at bedtime. 09/19/2023 niacin (NIACOR) 500 mg tablet Take 500 mg by mouth 2 times daily. 10/02/2018 metFORMIN (GLUCOPHAGE) 500 mg tablet Take 1,000 mg by mouth 2 times daily with meals . 06/05/2018 LORazepam (ATIVAN) 1 mg tablet Take 1 mg by mouth 2 times daily as needed for Anxiety . 06/18/2020 citalopram (CeleXA) 40 mg tablet Take 40 mg by mouth daily at bedtime. 11/01/2020 fenofibrate (LOFIBRA) 160 mg Oral Tab Take 1 Tab by mouth daily. 90 Tab 0 09/04/2012 05/05/2020 documented as of this encounter Progress Notes * Alize Arteaga MD - 05/20/2018 12:55 PM CST Apheresis communication: Triglyceride level is 354 this morning. This is below the threshold for which apheresis is effective. Apheresis service is signing off on this patient. Please call if you have concerns or questions. Alize Arteaga MD, PhD academic advisement director, therapeutic apheresis [phone] CE ASST * Wendie Desai MD - 05/20/2018 8:00 AM CST [facility] Adult Progress Note Admit Date: 05/16/2018 Date of Note: 05/20/2018, 8:00 AM LOS: 4 days Plan Active Problems: Principal Problem: Acute pancreatitis Active Problems: Hypothyroidism Pancreatitis, recurrent Hypertriglyceridemia Depression with anxiety Tobacco use Type 2 diabetes mellitus without complication, with long-term current use of insulin Hyponatremia GERD (gastroesophageal reflux disease) History of plasmapheresis 1. Acute pancreatitis 2/2 hypertriglyceridemia. - Triglycerides 279 yest afternoon after plasmapheresis, 354 this AM. Improved from >500 yesterday. - Clear liquid diet, then will advance to bland diet. If tolerating diet, plan for d/c tomorrow with follow up with her lipidologist - IV LR 100ml/hr - Dietitian consulted, appreciate recs for dietary recommendations at home to help keep TG low - Continue fenofibrate 160 mg daily, atorvastatin 80 mg daily, niacin 500mg BID and fish oil omega 3 fatty acids. - Pain control with tylenol 650 q6 PRN, Percocet 5-325 every 4 hours as needed, Dilaudid 0.5 mg every 4 hours as needed for breakthrough pain. Monitor BP and consider decreasing dilaudid if running soft. ?? 2. Hypothyroidism:?ROTO ROOTER OPERATOR levothyroxine 200 mcg daily TSH 4.04. 3. Anxiety/Depression: ??ROTO ROOTER OPERATOR celexa, trazodone. 4. GERD:?ROTO ROOTER OPERATOR PPI. 5. PCOS:?Holding metformin and aldactone ?? Chronic/Stable/Resolved Problems: Hypothyroidism Depression with anxiety Tobacco use Type 2 diabetes mellitus without complication, with long-term current use of insulin Hyponatremia GERD (gastroesophageal reflux disease) History of plasmapheresis Quality/Safety/Core Measures/Disposition Planning: DVT Prophylaxis - Enoxaparin PT POC Therapy Plan of Care: PT Eval Only; No further needs (05/18/18 1435) OT POC Therapy Plan of Care: D/c from OT d/t independent status with ADL. (05/19/18 0815) Activity Order: Present Activity: in bed (05/19/18 1800) Pettit catheter:absent Current Code Status -Full Code Plan discussed with patient, questions answered. Current Planned Disposition - Dispo: home pending continued improvement in abdominal pain and tolerating diet. Subjective Previous history of present illness and review of systems have been reviewed today as documented inthe H&P on 05/16/2018; medications, labs, studies, notes, orders and consults have been reviewed. I have reviewed the notes from yesterday. Overnight : patient reports improvement in epigastric pain, now 4/10. Denies nausea. Objective BP 104/65 (BP Location: Left arm, Patient Position (BP): Lying right side) Pulse 83 Temp 98.2 ??F (36.8 ??C) (Oral) Resp 18 Ht 5' 5 (1.651 m) Wt 85.7 kg (189 lb) SpO2 93% BMI 31.45 kg/m?? Temp (24hrs), Av.5 ??F (36.9 ??C), Min:98.2 ??F (36.8 ??C), Max:98.9 ??F (37.2 ??C) Exam: Gen alert, cooperative, no distress, appears stated age Lungs clear to auscultation bilaterally Heart regular rate and rhythm, S1, S2 normal, no murmur, click, rub or gallop Abdomen soft, non distended. Mildly TTP throughout; moderately tender in epigastrium. Bowel sounds normal. No masses, No organomegaly Extremities extremities normal, atraumatic, no cyanosis or edema Neuro No focal deficits Data: I have reviewed all new labs and studies resulted and pertinent ones are noted below TG 354 More than 30 minutes were spent in the care of this patient today; more than 50% was spent in discussion of expected course of disease, discussion of prognosis, discharge planning, coordination of care and discussion of lab and test results. Wendie Desai MD CE ASST Associated attestation - Karen Thomas MD - 05/20/2018 9:38 PM OFFICE ASST [facility] Adult Hospitalist Attending Note I reviewed the medical record including the resident???s note (available as hyperlink below) on 05/20/2018. I reviewed and confirmed the history, physical findings, laboratory findings, assessment andplan with the resident on rounds. I also performed the critical or santos portion(s) of the service asdocumented below, and was directly involved in the management of the patient and supervised the care provided. I have reviewed the physical exam findings in the resident???s note; my notable physical exam findings include: Feels abdominal pain is slowly improving. Has only been taking small amounts of fluid. General: NAD CV: RRR Abdomen: Soft, mildly tender to palpation, bowel sounds present I have reviewed the labs that were obtained over the last 24 hours. Notable amendments to the assessment and plan include: Acute pancreatitis - Triglycerides less than <500, hold apheresis today. Continue IVF, ADAT, limit IV narcotics. More than 30 minutes were spent in the care of this patient today; more than 50% was spent in discussion of expected course of disease, discussion of prognosis, discharge planning, coordination of care and discussion of lab and test results. Karen Thomas MD [facility] Hospitalist * Vignesh Badillo MD - 05/19/2018 6:40 PM CST Followed TG 553. Will need a plasmapheresis tomorrow as per hand off. Nothing to do at present. CE ASST * Jayro Fung GN - 05/19/2018 5:48 PM CST Pt to be transferred to Med-Surg. Gave report to Reina RN. Will call patient transportation when room is ready. Shift Note while in TCU today: Uneventful shift. No acute events. VSS. Pt diet change to clear liquids. Pt had no appetite. Plasmapheresis completed. Neuro/Pain: x4, PRN pain meds given, Compazine given once Resp: RA, clear CV: NSR, BPs (110-130s), afebrile GI: no BM this shift : pt ambulates to toilet to void Skin: no issues Sleep Evaluation: pt slept on/off throughout shift Pt Complaints: abdominal pain Wt Readings from Last 3 Encounters: 05/16/18 90.2 kg (198 lb 12.8 oz) 05/14/18 90.3 kg (199 lb) 04/25/18 89.8 kg (198 lb) Temp Readings from Last 3 Encounters: 05/19/18 98.2 ??F (36.8 ??C) 04/14/18 98.2 ??F (36.8 ??C) (Oral) 03/09/18 98.7 ??F (37.1 ??C) (Oral) BP Readings from Last 3 Encounters: 05/19/18 121/73 05/14/18 108/62 04/25/18 133/89 Pulse Readings from Last 3 Encounters: 05/19/18 74 05/14/18 99 04/25/18 (!) 113 Resp Readings from Last 3 Encounters: 05/19/18 16 04/14/18 18 03/09/18 16 CE ASST * Sari Sanford - 05/19/2018 4:14 PM CST Plasma exchange #3 completed using the R IJ catheter for draw and return. 5% Albumin used as replacement fluid for a 1 volume exchange. Patient tolerated procedure well and procedure completed without issues. CE ASST * Wendie Desai MD - 05/19/2018 8:18 AM CST [facility] Adult Progress Note Admit Date: 05/16/2018 Date of Note: 05/19/2018, 8:18 AM LOS: 3 days Plan Active Problems: Principal Problem: Acute pancreatitis Active Problems: Hypothyroidism Pancreatitis, recurrent Hypertriglyceridemia Depression with anxiety Tobacco use Type 2 diabetes mellitus without complication, with long-term current use of insulin Hyponatremia GERD (gastroesophageal reflux disease) History of plasmapheresis 1. Acute pancreatitis 2/2 hypertriglyceridemia. - Triglycerides 524 yest afternoon after plasmapheresis, 553 this AM. Improved from ~900 yesterday. - IV LR 100ml/hr - Plasmapheresis one more time today. Check TG after plasmapheresis this afternoon. Goal TG <500. - Nutrition consult - Continue fenofibrate 160 mg daily, atorvastatin 80 mg daily and fish oil omega 3 fatty acids. - Pain control with tylenol 650 q6 PRN, Percocet 5-325 every 4 hours as needed, Dilaudid 0.5 mg every 4 hours as needed for breakthrough pain. Monitor BP and consider decreasing dilaudid if running soft. - Consider abd CT if abdominal pain not improving after TG are under control ?? 2. Hypothyroidism:?ROTO ROOTER OPERATOR levothyroxine 200 mcg daily TSH 4.04. 3. Anxiety/Depression: ??ROTO ROOTER OPERATOR celexa, trazodone. 4. GERD:?ROTO ROOTER OPERATOR PPI. 5. PCOS:?Holding metformin and aldactone ?? Chronic/Stable/Resolved Problems: Hypothyroidism Depression with anxiety Tobacco use Type 2 diabetes mellitus without complication, with long-term current use of insulin Hyponatremia GERD (gastroesophageal reflux disease) History of plasmapheresis Quality/Safety/Core Measures/Disposition Planning: DVT Prophylaxis - Enoxaparin PT POC Therapy Plan of Care: PT Eval Only; No further needs (05/18/18 9501) OT POC Activity Order: Present Activity: in bed (05/19/18 8417) Pettit catheter:absent Current Code Status -Full Code Plan discussed with patient, questions answered. Current Planned Disposition - Dispo: home pending improvement in abdominal pain and normalization of triglycerides. Subjective Previous history of present illness and review of systems have been reviewed today as documented inthe H&P on 05/16/2018; medications, labs, studies, notes, orders and consults have been reviewed. I have reviewed the notes from yesterday. Overnight : patient still having epigastric pain and nausea, improved from yesterday. Patient states percocet helps a lot. No new symptoms. Objective BP 110/68 (BP Location: Left arm, Patient Position (BP): Supine) Pulse 75 Temp 98.5 ??F (36.9 ??C) (Oral) Resp 18 Ht 5' 5 (1.651 m) Wt 90.2 kg (198 lb 12.8 oz) SpO2 97% BMI 33.08 kg/m?? Temp (24hrs), Av.5 ??F (36.9 ??C), Min:97.7 ??F (36.5 ??C), Max:98.9 ??F (37.2 ??C) Exam: Gen alert, cooperative, no distress, appears stated age Lungs clear to auscultation bilaterally Heart regular rate and rhythm, S1, S2 normal, no murmur, click, rub or gallop Abdomen soft, non distended. Mildly TTP throughout; moderately tender in epigastrium. Bowel sounds normal. No masses, No organomegaly Extremities extremities normal, atraumatic, no cyanosis or edema Neuro No focal deficits Data: I have reviewed all new labs and studies resulted and pertinent ones are noted below TG 553 More than 30 minutes were spent in the care of this patient today; more than 50% was spent in discussion of expected course of disease, discussion of prognosis, discharge planning, coordination of care and discussion of lab and test results. Wendie Desai MD CE ASST Associated attestation - Manan Dumont MD - 05/19/2018 4:56 PM OFFICE ASST [facility] Adult Hospitalist Attending Note I reviewed the medical record including the resident???s or advanced practitioner's note (availableas hyperlink below) on 05/19/2018. I reviewed and confirmed the history, physical findings, laboratory findings, assessment and plan with the resident on rounds. I also performed the critical or santos po rtion(s) of the service as documented below, and was directly involved in the management of the patient and supervised the care provided. No events overnight. Reports that her abd pain is better today. I have reviewed the physical exam findings in the resident???s or advanced practitioner's note; my notable physical exam findings include: General appearance: alert, in no distress Lungs: clear to auscultation bilaterally, normal respiratory effort Heart: normal rate, regular rhythm, normal S1, S2, no murmurs, rubs, clicks or gallops Abdomen: epigastric tenderness on deep palpation, no guarding or rebound tenderness ,hypoactive Extremities: no pedal edema ?? I have reviewed the labs that were obtained over the last 24 hours. Notable amendments to the assessment and plan include: 1.?Acute pancreatitis-secondary to hypertriglyceridemia TG 553. Repeat apheresis today. Repeat triglycerides level post apheresis Pain control with Percocet 5-325 mg every 4 hours as needed, Dilaudid 0.5 mg every 4 hours as needed for breakthrough pain. Advance to clear liquid diet today. Goal TG<500 Continue lipitor, fenofibrate, niacin and fish oil omega 3 fatty acids 2. Hypothyroidism:?ROTO ROOTER OPERATOR levothyroxine 200 mcg daily TSH 4.04. 3. Anxiety/Depression: ??ROTO ROOTER OPERATOR celexa, trazodone. 4. GERD:?ROTO ROOTER OPERATOR PPI. More than 15 minutes were spent in the care of this patient today; more than 50% was spent in discussion of expected course of disease, discussion of prognosis, discharge planning, coordination of care and discussion of lab and test results. Manan Dumont MD [facility] Hospitalist * Blake Garcia, RN - 05/19/2018 7:21 AM CST Pt in bed resting. Complaining of pain almost every 4 hrs. Able to voice wants and needs. VSS. Willcontinue to monitor. CE ASST * Crow Damico MD - 05/18/2018 6:00 PM CST Brief Cross-Coverage Note Repeat triglyceride level 524. Per sign off, will not start insulin drip at this time. Crow Damico MD PGY-1 Pager: CE ASST * Nina Barber RN - 05/18/2018 5:14 PM CST Plasma exchange this morning, no issues. Abdominal pain and nausea through day, some relief with prn's. No other changes CE ASST * Wendie Desai MD - 05/18/2018 1:38 PM CST [facility] Adult Progress Note Admit Date: 05/16/2018 Date of Note: 05/18/2018, 1:38 PM LOS: 2 days Plan Active Problems: Principal Problem: Acute pancreatitis Active Problems: Hypothyroidism Pancreatitis, recurrent Hypertriglyceridemia Depression with anxiety Tobacco use Type 2 diabetes mellitus without complication, with long-term current use of insulin Hyponatremia GERD (gastroesophageal reflux disease) History of plasmapheresis 1. Acute pancreatitis 2/2 hypertriglyceridemia. - Triglycerides 955 this AM. Holding insulin drip as TG <1000; continue D5 1/2NS at this time. Continue to monitor blood sugar and stop D5 if running high. - Plasmapheresis again today. Check TG after plasmapheresis this afternoon. Goal TG <500. - Continue fenofibrate 160 mg daily, atorvastatin 80 mg daily and fish oil omega 3 fatty acids. - Pain control with tylenol 650 q6 PRN, Percocet 5-325 every 4 hours as needed, Dilaudid 0.5 mg every 4 hours as needed for breakthrough pain. Monitor BP and consider decreasing dilaudid if running soft. - Consider abd CT if abdominal pain not improving after TG are under control ?? 2. Hypothyroidism:?ROTO ROOTER OPERATOR levothyroxine 200 mcg daily TSH 4.04. 3. Anxiety/Depression: ??ROTO ROOTER OPERATOR celexa, trazodone. 4. GERD:?ROTO ROOTER OPERATOR PPI. 5. PCOS:?Holding metformin and aldactone ?? Chronic/Stable/Resolved Problems: Hypothyroidism Depression with anxiety Tobacco use Type 2 diabetes mellitus without complication, with long-term current use of insulin Hyponatremia GERD (gastroesophageal reflux disease) History of plasmapheresis Quality/Safety/Core Measures/Disposition Planning: DVT Prophylaxis - Enoxaparin PT POC OT POC Activity Order: Present Activity: in bed (05/18/18 0920) Pettit catheter:absent Current Code Status -Full Code Plan discussed with patient, questions answered. Current Planned Disposition - Dispo: home pending improvement in abdominal pain and normalization of triglycerides. Subjective Previous history of present illness and review of systems have been reviewed today as documented inthe H&P on 05/16/2018; medications, labs, studies, notes, orders and consults have been reviewed. I have reviewed the notes from yesterday. Overnight : patient still having 7/10 epigastric pain and nausea. Objective BP 108/66 Pulse 80 Temp 98.4 ??F (36.9 ??C) (Oral) Resp 18 Ht 5' 5 (1.651 m) Wt 90.2 kg (198 lb 12.8 oz) SpO2 96% BMI 33.08 kg/m?? Temp (24hrs), Av.5 ??F (36.9 ??C), Min:98.1 ??F (36.7 ??C), Max:98.7 ??F (37.1 ??C) Exam: Gen alert, cooperative, no distress, appears stated age Lungs clear to auscultation bilaterally Heart regular rate and rhythm, S1, S2 normal, no murmur, click, rub or gallop Abdomen soft, non distended. Mildly TTP throughout; moderately tender in epigastrium. Bowel sounds normal. No masses, No organomegaly Extremities extremities normal, atraumatic, no cyanosis or edema Neuro No focal deficits Data: I have reviewed all new labs and studies resulted and pertinent ones are noted below TG 955 More than 30 minutes were spent in the care of this patient today; more than 50% was spent in discussion of expected course of disease, discussion of prognosis, discharge planning, coordination of care and discussion of lab and test results. Wendie Desai MD CE ASST Associated attestation - Manan Dumont MD - 05/18/2018 1:54 PM OFFICE ASST [facility] Adult Hospitalist Attending Note I reviewed the medical record including the resident???s or advanced practitioner's note (availableas hyperlink below) on 05/18/2018. I reviewed and confirmed the history, physical findings, laboratory findings, assessment and plan with the resident on rounds. I also performed the critical or santos po rtion(s) of the service as documented below, and was directly involved in the management of the patient and supervised the care provided. Received apheresis yesterday. Triglycerides this morning 955. Continues to complain of epigastric abdominal pain. This morning at 7/10. Notes that pain medication reduces it to 3 over out of 10. No fever or chills. No back pain. Afebrile. Hemodynamic stable. I have reviewed the physical exam findings in the resident???s or advanced practitioner's note; my notable physical exam findings include: Physical Exam: General appearance: alert, in no distress Lungs: clear to auscultation bilaterally, normal respiratory effort Heart: normal rate, regular rhythm, normal S1, S2, no murmurs, rubs, clicks or gallops Abdomen: epigastric tenderness on deep palpation, no guarding or rebound tenderness ,hypoactive Extremities: no pedal edema I have reviewed the labs that were obtained over the last 24 hours. Notable amendments to the assessment and plan include: 1. Acute pancreatitis-secondary to hypertriglyceridemia TG 955. Repeat apheresis today. Repeat triglycerides level post apheresis Pain control with Percocet 5-325 mg every 4 hours as needed, Dilaudid 0.5 mg every 4 hours as needed for breakthrough pain. 2. Hypothyroidism:?ROTO ROOTER OPERATOR levothyroxine 200 mcg daily TSH 4.04. 3. Anxiety/Depression: ??ROTO ROOTER OPERATOR celexa, trazodone. 4. GERD:?ROTO ROOTER OPERATOR PPI. More than 20 were spent in the care of this patient today; more than 50% was spent in discussion ofexpected course of disease, discussion of prognosis, discharge planning, coordination of care and discussion of lab and test results. Manan Dumont MD [facility] Hospitalist * Rosales Tapia RN - 05/18/2018 12:14 PM CST Plasma exchange number 2 using the right IJ catheter for access and return with 5 % albumin as replacement fluids for a 1.0 volume exchange. 2g of calcium given intra procedure. Procedure completed without issues. CE ASST * Nina Barber RN - 05/17/2018 6:40 PM CST Nausea and abdominal pain through day, with some relief from prn's. Pt hypoglycemic 56 at 1030, insulin drip stopped. Trialysis cath placed bedside and plasma exchange done. Triglycerides 939 after CE ASST * Abel Sotelo MD - 05/17/2018 5:55 PM CST Brief cross cover note: Received call from patient's RN notifying that plasmapheresis is finished. Follow-up triglyceride at this time is 939. Per day team signout, will hold insulin drip as triglycerides are under 1000. Wewill continue D5 half NS at this time. CE ASST * Rosales Tapia RN - 05/17/2018 4:42 PM CST Plasma exchange number 1 using the right IJ catheter for access and return with 5% albumin as replacement fluids for 1.0 volume exchange. Procedure completed without issues. CE ASST * Manan Dumont MD - 05/17/2018 1:23 PM CST [facility] Adult Progress Note Admit Date: 05/16/2018 Date of Note: 05/17/2018, 1:23 PM LOS: 1 day Plan Active Problems: Principal Problem: Acute pancreatitis Active Problems: Hypothyroidism Pancreatitis, recurrent Hypertriglyceridemia Depression with anxiety Tobacco use Type 2 diabetes mellitus without complication, with long-term current use of insulin Hyponatremia GERD (gastroesophageal reflux disease) History of plasmapheresis 1. Acute pancreatitis Secondary to hypertriglyceridemia. Triglycerides now 2661.Currently on insulin infusion with D5 0.45 NS. POC Q1H. Fenofibrate 160 mg daily, atorvastatin 80 mg daily and fish oil omega 3 fatty acids. To undergo plasmapheresis today. CVC placed and Pathology notified. Pain control with oxycodone 5 mg every 4 hours as needed, Dilaudid 0.5 mg every 4 hours as needed for breakthrough pain. 2. Hypothyroidism: ROTO ROOTER OPERATOR levothyroxine 200 mcg daily TSH 4.04. 3. Anxiety/Depression: ROTO ROOTER OPERATOR celexa, trazodone. 4. GERD: ROTO ROOTER OPERATOR PPI. 5. PCOS: Holding metformin and aldactone Chronic/Stable/Resolved Problems: Hypothyroidism Depression with anxiety Tobacco use Type 2 diabetes mellitus without complication, with long-term current use of insulin Hyponatremia GERD (gastroesophageal reflux disease) History of plasmapheresis Quality/Safety/Core Measures/Disposition Planning: DVT Prophylaxis - Enoxaparin PT POC OT POC Activity Order: Present Activity: in bed (05/17/18 1257) Pettit catheter:absent Current Code Status -Full Code Plan discussed with patient, questions answered. Current Planned Disposition - Dispo: home pending clinical improvement. Subjective Previous history of present illness and review of systems have been reviewed today as documented inthe H&P on 05/16/2018; medications, labs, studies, notes, orders and consults have been reviewed. I have reviewed the notes from yesterday. Overnight: Continue to experience abdominal pain. Denied nausea vomiting. Objective BP (!) 93/65 (BP Location: Right arm, Patient Position (BP): Supine) Pulse 77 Temp 98 ??F (36.7??C) (Oral) Resp 16 Ht 5' 5 (1.651 m) Wt 90.2 kg (198 lb 12.8 oz) SpO2 92% BMI 33.08 kg/m?? Temp (24hrs), Av ??F (36.7 ??C), Min:97.1 ??F (36.2 ??C), Max:99 ??F (37.2 ??C) Exam: Gen alert, cooperative, no distress, appears stated age Lungs clear to auscultation bilaterally Heart regular rate and rhythm, S1, S2 normal, no murmur, click, rub or gallop Abdomen soft, epigastric tenderness on deep palpation, no rebound or guarding. Bowel sounds normal.No masses, No organomegaly Extremities extremities normal, atraumatic, no cyanosis or edema Data: I have reviewed all new labs and studies resulted and pertinent ones are noted below More than 20 were spent in the care of this patient today; more than 50% was spent in discussion ofexpected course of disease, discussion of prognosis, discharge planning, coordination of care and discussion of lab and test results. Manan Dumont MD CE ASST * Manan Dumont MD - 05/17/2018 1:09 PM CST Ok to use central venous catheter. CE ASST * Lalita Damico MD - 05/17/2018 3:32 AM CST [facility] Call Called for: Blood pressure Last Recorded Vitals: BP (!) 88/58 (BP Location: Right arm, Patient Position (BP): Supine) Pulse 77 Temp 97.8 ??F (36.6 ??C) (Oral) Resp 12 Ht 5' 5 (1.651 m) Wt 90.2 kg (198 lb 12.8 oz) SpO2 91% BMI 33.08 kg/m?? Intervention/Outcome: Chart reviewed. This patient is on the teaching service. Phone numbers to the resident team provided. Please call the on-call customer operations intern at [phone]. If there is no response, please call the senior resident at [phone]. Please call back any time if I can be of further assistance. Lalita Damico MD [phone] CE ASST * Ligia Treadwell RN - 05/17/2018 3:00 AM CST Contacted pharmacy regarding pt's missing insulin gtt. Medication to be sent. CE ASST * Ligia Treadwell RN - 05/17/2018 2:30 AM CST Undress and Assess performed by: CLAU Lange and PHOEBE Gaspar. Admission or upon transfer to: TCU ~~~~~~~~~~~~~~~~~~~~~~~~~~~~ Is the patient a paraplegic/quadriplegic? no [...] with the following belongings/valuables:(ie:dentures, hearing aids, glasses): phone, ring Patient arrived to this room with the following medical equipment/devices (ie: insulin pump, home CPAP, walker): none All Jewelry removed from patient No Disposition of belongings/valuables: in room CE ASST * Lalita Damico MD - 05/16/2018 10:23 PM CST [facility] Call Called for: pt requesting reglan for nausea. thanks. tried zofran in the ER without much relief. Last Recorded Vitals: BP 102/54 Pulse 90 Temp 98.2 ??F (36.8 ??C) (Oral) Resp 16 Ht 5' 5 (1.651 m) Wt 90.2 kg (198 lb 12.8 oz) SpO2 99% BMI 33.08 kg/m?? Documentation/Intervention/Outcome: Chart reviewed. Has not been admitted yet, one-time reglan ordered. Please call back any time if I can be of further assistance. Lalita Damico MD Submit an eTicket CE ASST * Carolyn Boyd NP - 05/16/2018 8:32 PM CST [facility] M[facility] Cover Call Called for: RN informing Physician patient has arrived to the floor. Patient resting quietly in bedno distress voiced or noted. Last Recorded Vitals: BP 102/54 Pulse 90 Temp 98.2 ??F (36.8 ??C) (Oral) Resp 16 Ht 5' 5 (1.651 m) Wt 90.2 kg (198 lb 12.8 oz) SpO2 99% BMI 33.08 kg/m?? Documentation/Intervention/Outcome: Chart reviewed. -D/W: Genoveva Please call back any time if I can be of further assistance. Carolyn Boyd NP Submit an eTicket CE ASST documented in this encounter H&P Notes * Hugo Randall MD - 05/17/2018 7:38 AM CST [facility] History and Physical/Consultation Casandra Doss 1975 CSN: [id number] 05/17/2018 Subjective: History of Present Illness: 42 y.o. lady with hypertriglyceridemia requiring aphresis presenting with abdominal pain. Pt to undergo apheresis today, surgery consulted for vascular access. INR on admission 0.9. Patient Active Problem List Diagnosis Date Noted ??? Acute pancreatitis 05/16/2018 ??? History of plasmapheresis ??? Hyponatremia 03/08/2018 ??? GERD (gastroesophageal reflux disease) 03/08/2018 ??? Abdominal pain ??? Tobacco use 03/07/2018 ??? Hypertriglyceridemia 03/07/2018 ??? Type 2 diabetes mellitus without complication, with long-term current use of insulin 03/07/2018 ??? Pancreatitis, recurrent 12/04/2017 ??? Hypertriglyceridemia 12/04/2017 ??? Depression with anxiety 12/04/2017 ??? Hypothyroidism 12/21/2011 ??? Metabolic syndrome 05/15/2011 ??? History of gestational diabetes 05/15/2011 ??? Family history of diabetes mellitus 05/15/2011 ??? Family history of early CAD 05/15/2011 ??? PCOS (polycystic ovarian syndrome) 05/15/2011 Past Medical History: Diagnosis Date ??? Anxiety [...] Pancreatitis ??? PCOS (polycystic ovarian syndrome) 05/15/2011 Past Surgical History: Procedure Laterality Date ??? HX APPENDECTOMY ??? HX HYSTERECTOMY partial due to endometriosis 2006 ??? [place] ESOPHAGOGASTRODUODENOSCOPY TRANSORAL DIAGNOSTIC N/A 03/08/2018 ESOPHAGOGASTRODUODENOSCOPY performed by Ceasar Vega MD at [facility] Prescriptions Prior to Admission Medication Sig Dispense Refill Last Dose ??? levothyroxine 200 mcg tablet Take 1 Tablet by mouth daily without food in the morning 30 minutes before eating anything. 30 Tablet 0 05/16/2018 at Unknown time ??? insulin glargine (LANTUS) 100 unit/mL injection Inject 28 Units by subcutaneous injection 2 times daily 28 units in the AM 38 units in the PM. 05/16/2018 at Unknown time ??? pantoprazole (PROTONIX) 40 mg Tablet, Delayed Release (E.C.) Take 40 mg by mouth 2 times daily . 05/16/2018 at Unknown time ??? traZODone (DESYREL) 100 mg tablet Take 100 mg by mouth. 05/15/2018 at Unknown time ??? [id number]-FA-Fish Oil [id number] [id number]-[id number]-mcg Capsule Take 2 Caplets by mouth 2 times daily. 120 Capsule 3 05/16/2018 at Unknown time ??? spironolactone (ALDACTONE) 25 mg tablet Take 25 mg by mouth daily. 05/16/2018 at Unknown time ??? rosuvastatin (CRESTOR) 20 mg tablet Take 20 mg by mouth daily at bedtime. 05/16/2018 at Unknown time ??? niacin (NIACOR) 500 mg tablet Take 500 mg by mouth 2 times daily. 05/16/2018 at Unknown time ??? metFORMIN (GLUCOPHAGE) 500 mg tablet Take 1,000 mg by mouth 2 times daily with meals . 05/16/2018 at Unknown time ??? LORazepam (ATIVAN) 1 mg tablet Take 1 mg by mouth 2 times daily as needed for Anxiety . 05/15/2018 at Unknown time ??? citalopram (CeleXA) 40 mg tablet Take 40 mg by mouth daily at bedtime. 05/15/2018 at Unknown time ??? fenofibrate (LOFIBRA) 160 mg Oral Tab Take 1 Tab by mouth daily. 90 Tab 0 05/16/2018 at Unknown time ??? ondansetron (ZOFRAN ODT) 4 mg Tablet, Rapid Dissolve Dissolve 1 Tablet on top of tongue,then swallow with saliva every 6 hours as needed for nausea/vomiting. 30 Tablet 0 05/14/2018 ??? [DISCONTINUED] hyoscyamine 0.125 mg Tablet, Sublingual Place 1 Tablet under tongue every 6 hours as needed for Spasm. 30 Tablet 0 05/14/2018 ??? insulin aspart protamine-aspart (NovoLOG MIX 70-30) 100 unit/mL (70-30) pen syringe Inject by subcutaneous injection 8 units breakfast 14 units lunch 18 units dinner Also with sliding scale. 05/14/2018 ??? [DISCONTINUED] sennosides (SENOKOT) 8.6 mg tablet Take 1 Tablet by mouth 2 times daily. 30 Tablet 0 05/14/2018 ??? [DISCONTINUED] hydrocortisone 1 % Ointment Apply to affected area 2 times daily. 28 Gram 0 05/14/2018 Allergies Allergen Reactions ??? Green Pepper Hives ??? Adhesive Unknown ??? Aspartame Headache All artificial sweeteners. ??? Adhesive Tape-Silicones Hives Social History Substance Use Topics ??? Smoking [...] Grandmother ??? Diabetes Mother Review of Systems (exept as per above) History from the chart General +fatigue negative for weight changes, fever ENT + rhinorrhea negative for sore throat Endocrine negative for polyuria/polydipsia or new changes in weight CV negative for chest pain or dyspnea on exertion Respiratory negative for cough, shortness of breath, or wheezing GI +abdominal pain, nausea, diarrhea negative for dysuria, trouble voiding, or hematuria MS negative for back pain, neck pain or joint pain or swelling Neuro +headaches, intermittent blurred vision, Derm negative for skin rashes or unusual skin lesions Objective: Patient Vitals for the past 8 hrs: BP Temp Temp src Pulse Resp SpO2 05/17/18 0503 (!) 93/58 - - - - - 05/17/18 0318 (!) 88/58 97.8 ??F (36.6 ??C) Oral 77 12 91 % 05/17/18 0300 - - - - - 90 % 05/17/18 0201 101/59 97.9 ??F (36.6 ??C) Oral 80 17 92 % BP (!) 93/58 (BP Location: Left leg, Patient Position (BP): Supine) Pulse 77 Temp 97.8 ??F (36.6 ??C) (Oral) Resp 12 Ht 5' 5 (1.651 m) Wt 90.2 kg (198 lb 12.8 oz) SpO2 91% BMI 33.08 kg/m?? General appearance: NAD, resting comfortably Eyes: EOMI and PERRLA grossly, sclera non-icteric HENT: NC/AT, CN II-XII grossly intact, MMM and acyanotic Resp: Non-labored Heart:RRR Abdomen: Diffusely tender, non-distended, non-guarded, non-peritoneal Extremities: WWP Skin: Acyanotic Neurologic: SPARKS Labs: Lab Results Component Value Date/Time WBC 8.4 05/17/2018 01:21 AM HEMOGLOBIN 11.0 (L) 05/17/2018 01:21 AM HEMATOCRIT 32.8 (L) 05/17/2018 01:21 AM PLATELETS 235 05/17/2018 01:21 AM MCV 92.7 05/17/2018 01:21 AM Lab Results Component Value Date/Time SODIUM 136 05/17/2018 01:21 AM POTASSIUM 4.1 05/17/2018 01:21 AM CHLORIDE 100 05/17/2018 01:21 AM CO2 24 05/17/2018 01:21 AM CALCIUM 8.3 (L) 05/17/2018 01:21 AM BUN 9 05/17/2018 01:21 AM CREATININE 0.47 (L) 05/17/2018 01:21 AM GLUCOSE 108 (H) 05/17/2018 01:21 AM ANION GAP 12 05/17/2018 01:21 AM Lab Results Component Value Date/Time ALT 17 05/17/2018 01:21 AM AST 26 05/17/2018 01:21 AM ALKALINE PHOSPHATASE 62 05/17/2018 01:21 AM Lab Results Component Value Date/Time PROTIME 11.6 (L) 05/16/2018 04:39 PM INR 0.9 05/16/2018 04:39 PM Imaging: No results found. Assesment 42yo lady with need for vascular access Active Hospital Problems Diagnosis ??? Acute pancreatitis ??? History of plasmapheresis ??? GERD (gastroesophageal reflux disease) ??? Hyponatremia ??? Tobacco use ??? Type 2 diabetes mellitus without complication, with long-term current use of insulin ??? Depression with anxiety ??? Hypertriglyceridemia ??? Pancreatitis, recurrent ??? Hypothyroidism Resolved Hospital Problems Diagnosis Date Resolved No resolved problems to display. Plan: Trialysis catheter today, procedure note to follow Pt discussed with Dr. Homero Randall MD Surgery Resident P: [phone] 05/17/18 7:38 AM CE ASST Associated attestation - Malcom Valentin MD - 05/17/2018 2:28 PM OFFICE ASST I agree with below as noted by the Resident. In addition I note: 42 yo male with hypertriglyceridemia needing apharesis. trialysis cath placed today by me. Catheter in place on CXR Call with questions or concerns. I certify that I have independently seen and examined this patient reviewed the labs, xrays, and evaluated the showroom consultant's notes and agree with the above assessment.?? I have spent no less than 35 minutes involved in the care and evaluation of the patient. Malcom Valentin MD, 05/17/2018 2:26 PM Pager # [phone] *If unable to reach me, please call the coal conveyor operator and ask for the On-Call Trauma Surgeon* * Los Simon, DO - 05/16/2018 9:10 PM CST [facility] Internal Medicine Teaching Service History & Physical Judy R Page, DO 05/16/2018 9:10 PM Patient Name: Casandra Doss Admit Date: 05/16/2018 PCP: Guerrero Middleton PA-C Subjective: CC: Abdominal pain HPI: Caasndra Doss is a 42 y.o. female with a PMH of severe hypertriglyceridemia with recurrent episodes of acute pancreatitis requiring apharesis x4 previously including most recently 04/09-04/14/18, GERD, DM-2, hypothyroidism, depression, and anxiety who presented to the ER with abdominal pain. The patient had been seen by her lipidologist, Dr. Mayer, on 05/14/17 which labs obtained and revealing TG of 3899 (up from 280 at discharge 04/14/18). Due to the marked elevation, she was advised to come to the ER if any abdominal pain developed. She states she has been having increasingly sharp pain (currently 6/10) in her epigastrium radiating to her back for the past 2 days. She alsonotes nausea, vomiting, 3-4 loose BMs in the past day, fatigue, headaches, and arthralgias. No fevers, chills, dysuria, melena, hematochezia. She states she has been taking all of her hyperlipidemic agents as prescribed, without missed doses. She also states she has been taking all insulins as presc ribed. In the ER, the patient was afebrile and hemodynamically stable. Labs were notable for WBC 10.3, Na 130, CRP 11.9, Lipase 36. She was given IV Morphine, Protonix, Zofran, and Reglan and admitted for further care. PMHx: Past Medical History: Diagnosis Date ??? Anxiety [...] Pancreatitis ??? PCOS (polycystic ovarian syndrome) 05/15/2011 PSurgHx: Past Surgical History: Procedure Laterality Date ??? HX APPENDECTOMY ??? HX HYSTERECTOMY partial due to endometriosis 2006 ??? [place] ESOPHAGOGASTRODUODENOSCOPY TRANSORAL DIAGNOSTIC N/A 03/08/2018 ESOPHAGOGASTRODUODENOSCOPY performed by Ceasar Vega MD at [facility] Medications: Medication List CONTINUE taking these medications citalopram 40 mg tablet Commonly known as: CeleXA Take 40 mg by mouth daily at bedtime. Refills: 0 fenofibrate 160 mg Tablet Commonly known as: LOFIBRA Take 1 Tab by mouth daily. Signed by: Prudence Gates MD Quantity: 90 Tab Refills: 0 hydrocortisone 1 % Ointment Apply to affected area 2 times daily. Signed by: Odette Che MD Quantity: 28 Gram Refills: 0 hyoscyamine 0.125 mg Tablet, Sublingual Commonly known as: LEVSIN Place 1 Tablet under tongue every 6 hours as needed for Spasm. Signed by: Alize Morel DO Quantity: 30 Tablet Refills: 0 insulin aspart protamine-aspart 100 unit/mL (70-30) pen syringe Commonly known as: NovoLOG MIX 70-30 Inject by subcutaneous injection 12 units breakfast 14 units lunch 20 units dinner Also with sliding scale. Refills: 0 insulin glargine 100 unit/mL injection [...] mg tablet Commonly known as: GLUCOPHAGE Take 500 mg by mouth 2 times daily with meals. Refills: 0 niacin 500 mg tablet Commonly known as: NIACOR Take 500 mg by mouth 2 times daily. Refills: 0 [id number]-FA-Fish Oil [phone] [id number]-mh-[id number] Capsule Take 2 Caplets by mouth 2 times daily. Signed by: Odette Che MD Quantity: 120 Capsule Refills: 3 ondansetron 4 mg Tablet, Rapid Dissolve Commonly known as: ZOFRAN ODT Dissolve 1 Tablet on top of tongue,then swallow with saliva every 6 hours as needed for nausea/vomiting. Signed by: Alize Morel DO Quantity: 30 Tablet Refills: 0 pantoprazole 40 mg Tablet, Delayed Release (E.C.) Commonly known as: PROTONIX Take 40 mg by mouth 2 times daily . Refills: 0 rosuvastatin 20 mg tablet Commonly known as: CRESTOR Take 20 mg by mouth daily at bedtime. Refills: 0 SENNA LAX 8.6 mg tablet Take 1 Tablet by mouth 2 times daily. Signed by: Odette Che MD Quantity: 30 Tablet Refills: 0 Generic drug: sennosides spironolactone 25 mg tablet Commonly known as: ALDACTONE Take 25 mg by mouth daily. Refills: 0 traZODone 100 mg tablet Commonly known as: DESYREL Take 100 mg by mouth. Refills: 0 Allergies: Allergies Allergen Reactions ??? Green Pepper Hives ??? Adhesive Unknown ??? Aspartame Headache All artificial sweeteners. ??? Adhesive Tape-Silicones Hives FHx: family history includes Diabetes in her father, maternal grandmother, mother, and paternal grandmother; Heart Disease in her maternal grandmother and mother; High Cholesterol in her father and mother; Hypertension in her father; Stroke in her mother; Thyroid Disease in her mother. SHx: reports that she has been smoking Cigarettes. She has a 18.00 pack-year smoking history. She has never used smokeless tobacco. She reports that she does not drink alcohol or use drugs. Review of Systems: History from the patient General +fatigue negative for weight changes, fever ENT + rhinorrhea negative for sore throat Endocrine negative for polyuria/polydipsia or new changes in weight CV negative for chest pain or dyspnea on exertion Respiratory negative for cough, shortness of breath, or wheezing GI +abdominal pain, nausea, diarrhea negative for dysuria, trouble voiding, or hematuria MS negative for back pain, neck pain or joint pain or swelling Neuro +headaches, intermittent blurred vision, Derm negative for skin rashes or unusual skin lesions Objective: Initial Vitals BP 05/16/18 1526 128/78 Pulse 05/16/18 1957 90 Resp 05/16/18 1526 16 Temp 05/16/18 1526 99 ??F (37.2 ??C) Temp src 05/16/18 1526 Oral SpO2 05/16/18 1526 100 % BP 102/54 Pulse 90 Temp 98.2 ??F (36.8 ??C) (Oral) Resp 16 Ht 5' 5 (1.651 m) Wt 90.2 kg (198 lb 12.8 oz) SpO2 99% BMI 33.08 kg/m?? General appearance alert, cooperative, no distress, appears stated age HEENT Normocephalic, atraumatic, conjunctiva clear, lips, mucosa, and tongue normal Neck Supple, trachea midline, no adenopathy, thyroid: not enlarged, symmetric, no tenderness/mass/nodules Lungs clear to auscultation bilaterally, no wheezes/crackles/rhonchi Heart regular rate and rhythm, S1, S2 normal, no murmur. No rub or gallop. Abdomen +abdominal pain, tender to palpation over epigastric region and over to left flank Extremities No edema, erythema, cyanosis Pulses peripheral pulses symmetrical Skin Skin color, texture, turgor normal. No rashes or lesions Neurologic AOx3. CN grossly normal. Moves all extremities symmetrically. Summary of Pertinent Labs/Radiology/EKG: Recent Labs 05/14/18 1248 05/16/18 1639 05/16/18 1741 WBC -- 10.3* -- HGB -- 13.9 -- HCT -- 38.4 -- PLT -- 336 -- NA 131* -- 130* K 4.5 -- -- CL 90* -- 96* CO2 24 -- 20* BUN 9 -- 10 CREAT 0.44* -- 0.16* GLUCOSE 160* -- 143* ALT -- -- 14 AST -- -- 40* INR -- 0.9 -- Assessment and Plan: Acute pancreatitis: Given characteristic pain and marked TG elevation (above that of previous episodes of TG-induced pancreatitis). Patient is noted to have a normal lipase currently, however per review lipase is normal with all previous pancreatitis episodes. -Consider abdominal CT in AM -Will temporize with insulin therapy and plan for plasmapheresis in AM -Discuss case with pathology (Dr. James Spence) for line and apheresis in AM - pager her at -Pt needs to get all of her AM meds after apheresis on morning of 05/17/18 -NS 1L bolus -Insulin gtt @ 0.10 U/kg/hr -D5W @ 100 mL/hr. Accuchecks q1h. -TG q12h until < 500 -Pain: Morphine PRN -NPO, sips with meds Hypertriglyceridemia: Likely genetic. Follows with lipidologist, Dr. Mayer who is aware of patient's admission. -ROTO ROOTER OPERATOR Crestor 20 mg, Fenofibrate 160 mg daily, Niacin 500 mg BID Hyponatremia: Suspect pseudohyponatremia from hyperosmolar state with hyperTG -Obtain serum osmolality DM-2, uncontrolled: Last HbA1c 8.7% 02/2018. -Obtain updated HbA1c -Insulin gtt as above -D5W @ 100 mL/hr while on insulin gtt -q1h accuchecks -ROTO ROOTER OPERATOR regimen: Lantus 28U AM/38U PM, Novolog (8U breakfast, 14U lunch, 18U dinner + SSI TID), Metformin 1000 mg BID Hypothyroidism: ROTO ROOTER OPERATOR levothyroxine 200 mcg daily ObtainTSH. Anxiety/Depression: ROTO ROOTER OPERATOR celexa, trazodone, and PRN ativan. GERD: ROTO ROOTER OPERATOR PPI. PCOS: Holding metformin and aldactone. Tobacco abuse: Nicotine patch. Hx endometriosis DVT PRX: SCDs until trialysis catheter placed Indwelling Lines/Devices: PIV Code Status: Full Current Planned Disposition - Home pending clinical course, which I anticipate will be >2 MN I discussed the assessment of plan for the above patient with Dr. Vences. Los Simon, DO PGY-1 This patient is covered by internal medicine residents. During the day, the housestaff can be pagedvia the [facility] Hospitalist [place]. For questions on this patient 5pm-7am Saturday through Saturday, and 12pm to 7am Saturday and Saturday, please call the on-call customer operations intern at zone phone [phone]. CE ASST Associated attestation - Loki Vences MD - 05/17/2018 3:28 AM OFFICE ASST [facility] Adult Hospitalist Attending Note I reviewed the medical record including the resident???s note (available as hyperlink below) on 05/17/2018. I reviewed and confirmed the history, physical findings, laboratory findings, assessment andplan with the resident on rounds. I also performed the critical or santos portion(s) of the service asdocumented below, and was directly involved in the management of the patient and supervised the care provided. I have reviewed the physical exam findings in the resident???s note; my notable physical exam findings include: Gen NAD CV S1S2+, RRR Resp CTAB Abd epigastrum TTP I have reviewed the labs that were obtained over the last 24 hours. Brief HPI: 42-year-old female with a medical history including severe hypertriglyceridemia with recurrent pancreatitis with several admissions requiring apheresis who presented with epigastric pain and outpatient lipid panel with triglycerides close to 4000. She was discharged on April 14 with a triglyceride level of 280 after apheresis. Notable amendments/additions to the assessment and plan include: Acute pancreatitis -likely induced by severe hypertriglyceridemia . Unclear if this is familial HTG. Follows with regarding lipids. TG 3147 here from 3900 2 days ago. ?? Temporizing insulin drip and D5 NS this evening with monitoring of blood sugars and triglyceridelevels. Lipase normal, though this is the same as previous episodes. We will need to consult IR forcatheter placement and pathology for apheresis in the morning. -Check hemoglobin A1c, LA, TSH, monitor Accu-Cheks and TG levels on insulin drip. Aggressive IV fluid resuscitation. Morphine for pain. -Serial abdominal exams, may need imaging in the morning if not improving - Will call pathology this evening given upcoming weekend and need for plasmapheresis ?? Rest of treatment plan per resident note More than 45 minutes were spent in the care of this patient today; more than 50% was spent in discussion of expected course of disease, discussion of prognosis, discharge planning, coordination of care and discussion of lab and test results. Loki Vences MD [facility] Hospitalist documented in this encounter Procedure Notes * Hugo Randall MD - 05/17/2018 12:12 PM CST Central Venous Catheter Insertion Procedure Note Date of Service: 05/17/2018 Procedure: Insertion of Central Venous Catheter Indications: need for apheresis Surgeon: Malcom Valentin MD Inspectors And Regulatory Officers: Hugo Randall MD Procedure Details Informed consent was obtained for the procedure, including possible sedation. Risks of lung perforation, hemorrhage, infection, arrhythmia, and adverse drug reaction were discussed. Time-Out Process performed, verified patient identification, verified procedure, verified site/side, verified correct patient position, special equipment/implants available. The skin above the left internal jugular vein was prepped with chlorhexidine. Under sterile conditions (hand hygiene prior to donning gloves, gown, mask, sterile drape), maximal barrier precautions (mask, hat, sterile gloves and gown for the person performing the procedure and full body drape on the patient) were utilized. Local anesthesia was infiltrated into the skin and subcutaneous tissues. An 18-gauge needle was inserted into the vein. A guide wire was easily inserted through the needle. While inserting the guide wire no arrhythmias occurred. The needle was withdrawn over the guide wire.A scalpel was used to puncture the skin entry site to facilitate catheter insertion. The dilators were passed over the guide wire and removed. A trialysis catheter was inserted into the vessel over the guide wire. The guide wire was removed. Catheter was aspirated for blood, flushed, and secured with suture. An occlusive sterile dressing was applied to the catheter. Ultrasound Guidance: yes Complications: None; patient tolerated the procedure well. Condition: stable. Recommendations: CXR ordered to verify placement. Hugo Randall MD, 05/17/2018 12:14 PM CE ASST Associated attestation - Malcom Valentin MD - 05/17/2018 2:26 PM OFFICE ASST I was scrubbed for the entire procedure Malcom Valentin MD, Date of Service: 05/17/2018 2:26 PM Pager # [phone] *If unable to reach me, please call the coal conveyor operator and ask for the On-Call Trauma Surgeon* documented in this encounter Consult Notes * Karen ClevelandARMAND - 05/20/2018 9:39 AM CSTAssociated Order(s): IP CONSULT TO NUTRITION SERVICES CLINICAL DIETITIAN ASSESSMENT NOTE [facility] CONSULT: Diet selection, Education Casandra Doss 42 y.o. female A: patient has been seen by RD's here before. Recurrent pancreatitis and chronic high (extremely high, >4000 at admit) triglycerides. The thought seems to be that this is genetic. Getting apheresis to bring them down. She is followed by a lipidologist. ROTO ROOTER OPERATOR was taking Crestor 20 mg, Fenofibrate 160 mg daily, Niacin 500 mg BID. Reviewed pt home diet: Breakfast: pt states she typically skips breakfast and does not eat till around 1pm Lunch: salad with egg Dinner: baked chicken or other meat with vegetables (ex carrots, broccoli, or mixed vegetables) Snacks: occasionally. Drinks a low CHO, low fat protein drink sometimes from [employer]. Checks AM blood sugars, usually run 140-160 per pt. On insulin and metformin at home. A1c down to 8from 8.7 in February 2018. Diagnosis: pancreatitis and hypertriglyceridemia Diet: DIET CLEAR LIQUID Supplements: none PO: clears Wt Readings from Last 10 Encounters: 05/19/18 85.7 kg (189 lb) 05/14/18 90.3 kg (199 lb) 04/25/18 89.8 kg (198 lb) 04/14/18 91.6 kg (201 lb 14.4 oz) 04/02/18 90.7 kg (200 lb) 03/07/18 86.2 kg (190 lb) 03/06/18 89.8 kg (198 lb) 02/10/18 91.9 kg (202 lb 11.2 oz) 12/04/17 91.2 kg (201 lb 1.6 oz) 05/21/12 85.7 kg (189 lb) Allergies Allergen Reactions ??? Green Pepper Hives ??? Adhesive Unknown ??? Aspartame Headache All artificial sweeteners. ??? Adhesive Tape-Silicones Hives Height: 5' 5 (165.1 cm) (05/19/182025) Weight: 85.7 kg (189 lb) (05/19/182025) Body mass index is 31.45 kg/m??. IBW/kg (Calculated) Female: 57 kg (05/19/182025) IBW/kg (Calculated) Male: 61.5 kg (05/19/182025) Last Bowel Movement (mm/dd/yyyy): (ROTO ROOTER OPERATOR- refusing stool softeners tonight) (05/19/181953) Chin Score: 19 (05/19/181953) Skin: no staged pressure injury Edema (per provider neighborhood worker charting): none Pert Meds: lipitor, finofibrate, niacin, fish oil, lactated ringers Pert Labs: Lab Results Component Value Date/Time NA 140 05/20/2018 04:28 AM K 3.5 05/20/2018 04:28 AM BUN 3 (L) 05/20/2018 04:28 AM CREAT 0.52 05/20/2018 04:28 AM GLUCOSE 150 (H) 05/20/2018 04:28 AM CA 8.7 05/20/2018 04:28 AM ALBUMIN 4.3 05/20/2018 04:28 AM GFR >60 05/20/2018 04:28 AM CRP 11.9 (H) 05/16/2018 04:39 PM Lab Results Component Value Date/Time HGBA1C 8.0 (H) 05/16/2018 09:39 PM Lab Results Component Value Date/Time CHOLTOT 505 (H) 05/16/2018 09:38 PM HDL 05/16/2018 09:38 PM Comment: Measured HDL is not accurate when the Triglyceride value exceeds 1200. LDLCALC 05/16/2018 09:38 PM Comment: Calculated LDL is not accurate when the Triglyceride value exceeds 400. LDLDIRECT 110 08/10/2011 07:21 AM TRIGLYCERIDE 354 (H) 05/20/2018 04:28 AM Est kcal needs: 1462 (17 kcal per kg) Est pro needs (gm): 103g (1.2 g per kg) Est fluid needs (cc): normal fluid needs 2820 cc D: Altered nutrition-related laboratory values r/t genetic disorder as evidenced by hypertriglyceridemia I: Nutrition Prescription / Intervention / Recommendations: 1. Advance to low fat diabetic diet for blood sugar control and pancreatitis. 2. Discussed home diet with pt. At one point in the past per chart review she was shooting for 9 servings CHO per day/10g fat per day, recommended dividing this throughout the day and focusing on whole food, not processed, sources. Could have her preferred protein drink in the morning since she does not get hungry for breakfast. Dinner of lean meat and vegetables ok. Encouraged lower fat plant proteins as well. Pt wondering if she needs to cut out healthy fat too, she likes avocados. Would advise some reduction of healthy fats, too, d/t recurrent pancreatitis. A small amount of healthy fat per day to avoid EFAD - she is on a fish oil pill at home as well. Since triglyceride issue is thoughtto be genetic, it is unclear how much effect dietary reduction has? 3. Will send Ensure clear TID for protein while on clear liquid diet. M/E: 1. Continue to monitor nutrition, weight, lab values, and skin. 2. Follow up every 4 days and as needed. Karen Cleveland RD, LD CE ASST documented in this encounter ED Notes * Alexandra Monzon RN - 05/16/2018 5:41 PM CST CMP redrawn and sent to lab at this time. Pt reports no relief after pain media strategist, MD Foreman made aware. Pt continues to resting quietly on stretcher watching television, RR even and unlabored. Skin is WNL. Pt in NAD. CE ASST * Alexandra Monzon RN - 05/16/2018 5:11 PM CST Pt medicated for pain per MAR. Patient/family has been informed about benefits and any potential clinically significant side effects or other concerns regarding the administration of the drug they have just been given. warm blankets provided. CE ASST * Alexandra Monzon RN - 05/16/2018 4:50 PM CST 42 y/o F presents to ED with c/o upper abd pain. Pt was seen at doctor's on Saturday and hsowed triglycerides were increased. Pt c/o headache, nausea, diarrhea, and upper abd tenderness x 2 weeks. Pt reports hx of pancreatitis and believes it is coming back . Denies fevers/chills. Skin is WNL. RR even and unlabored. Pt in NAD. CE ASST * Alexandra Monzon RN - 05/16/2018 4:26 PM CST Pt ambulatory to RR to provide CC UA. Pt given supplies and education regarding CC UA. CE ASST * Puja Garcia RN - 05/16/2018 3:34 PM CST We promote safety at our facility and do not allow any type of weapon in the building. Do you have a weapon or something that could be used as a weapon on you today? denied possession of any weapons or firearms at this time. CE ASST * Eva Foreman MD - 05/16/2018 3:23 PM CST HISTORY OF PRESENT ILLNESS Casandra Doss, a 42 y.o. female presents to the ED with a Chief Complaint of Abdominal Pain Subjective 4:28 PM: Casandra Doss is a 42 y.o. female with a history of pancreatitis, DM, hypertriglyceridemia, hypothyroidism and depression with anxiety, who presents to the Emergency Department with complaints of abdominal pain with associated diarrhea that began yesterday. Patient reports 4 episodes of diarrhea. She notes her symptoms are similar to the last time she had pancreatitis. She talked to Dr. Mayer who did labs two days ago and told her to come to ED after elevated triglycerides. Patient also complains of burping, headache, muscle cramps and joint pain. She denies difficulty urinating. Patient is taking he medications as described. She notes her Mom and Dad both had heart issues. Physician(s): Guerrero Middleton PA-C Alumni Secretary: Marlys Mayer MD History provided by: The patient and medical records outside plant field engineer used: No Arrived by: Private vehicle Arrived from: Home REVIEW OF SYSTEMS Review of Systems Constitutional: Negative for fatigue. HENT: Negative for sore throat. Respiratory: Negative for cough, chest tightness and shortness of breath. Cardiovascular: Negative for chest pain. Gastrointestinal: Positive for abdominal pain and diarrhea. Negative for blood in stool, nausea andvomiting. +burping Genitourinary: Negative for difficulty urinating, dysuria, flank pain and hematuria. Musculoskeletal: Positive for arthralgias and myalgias (cramping). Negative for back pain and neck pain. Neurological: Negative for dizziness and headaches. All other systems reviewed and are negative. PAST MEDICAL HISTORY REVIEWED MEDICAL: Patient has a past medical history of Anxiety; Depression; Diabetes mellitus; DM type 2 (diabetes mellitus, type 2); Family history of diabetes mellitus (05/15/2011); Family history of early CAD (05/15/2011); GERD (gastroesophageal reflux disease); High triglycerides; History of gestational diabetes ( 05/15/2011); HLD (hyperlipidemia); Hypothyroidism; Metabolic syndrome (05/15/2011); Pancreatitis; andPCOS (polycystic ovarian syndrome) (05/15/2011). She also has no past medical history [...] mg tablet Take 100 mg by mouth. [id number]-Fish Oil [id number] Capsule Take 2 Caplets by mouth 2 timesdaily. Qty: 120 Capsule, Refills: 3 spironolactone (ALDACTONE) 25 mg tablet Take 25 mg by mouth daily. rosuvastatin (CRESTOR) 20 mg tablet Take 20 mg by mouth daily at bedtime. niacin (NIACOR) 500 mg tablet Take 500 mg by mouth 2 times daily. metFORMIN (GLUCOPHAGE) 500 mg tablet Take 1,000 mg by mouth 2 times daily with meals . LORazepam (ATIVAN) 1 mg tablet Take 1 mg by mouth 2 times daily as needed for Anxiety . citalopram (CeleXA) 40 mg tablet Take 40 mg by mouth daily at bedtime. fenofibrate (LOFIBRA) 160 mg Oral Tab Take 1 Tab by mouth daily. Qty: 90 Tab, Refills: 0 ondansetron (ZOFRAN ODT) 4 mg Tablet, Rapid Dissolve Dissolve 1 Tablet on top of tongue,then swallow with saliva every 6 hours as needed for nausea/vomiting. Qty: 30 Tablet, Refills: 0 insulin aspart protamine-aspart (NovoLOG MIX 70-30) 100 unit/mL (70-30) pen syringe Inject by subcutaneous injection 8 units breakfast 14 units lunch 18 units dinner Also with sliding scale. Objective PHYSICAL EXAM INITIAL VS BP: 128/78 (05/16/181525), Heart Rate: 101 bpm (05/16/181525), Resp: 16 (05/16/181525), Pulse: 90 (05/16/181956), Temp: 99 ??F (37.2 ??C) (05/16/181525), Temp src: Oral (05/16/181525), SpO2: 100 % (05/16/181525), Height: 5' 5 (165.1 cm) (05/16/181525), Weight: 90.7 kg (200 lb) (05/16/181525), BMI (Calculated): 33.28 (05/16/181525) No LMP recorded. Patient has had a [...] Soft. She exhibits no mass. There is tenderness. There is no CVA tenderness. Mild epigastric tenderness no guarding no rigidity Musculoskeletal: Normal range of motion. She exhibits no edema or tenderness. Neurological: She is alert and oriented to person, place, and time. No cranial nerve deficit. Skin: Skin is warm and dry. No rash noted. Psychiatric: Her behavior is normal. Nursing note and vitals reviewed. DIAGNOSTICS LAB: CBC WITH DIFFERENTIAL - Abnormal Result Value WBC 10.3 (*) RBC 4.18 HEMOGLOBIN 13.9 HEMATOCRIT 38.4 MCV 91.9 MCH 33.3 (*) MCHC 36.2 (*) RDW 14.6 (*) RDW-STDEV 49.4 (*) PLATELETS 336 MPV 9.8 NEUTROPHILS 66 LYMPHOCYTES 26 MONOCYTES 5 EOSINOPHILS 1 BASOPHILS 1 IMMATURE GRANULOCYTES 1 NEUTROPHIL ABSOLUTE 6.78 LYMPHOCYTE ABSOLUTE 2.70 MONOCYTE ABSOLUTE 0.53 EOSINOPHIL ABSOLUTE 0.09 BASOPHILS ABSOLUTE 0.05 IMMATURE GRANULOCYTES ABSOLUTE 0.11 (*) COMPREHENSIVE METABOLIC PANEL - Abnormal SODIUM 130 (*) POTASSIUM CHLORIDE 96 (*) CO2 20 (*) CALCIUM 8.9 BUN 10 CREATININE 0.16 (*) GLUCOSE 143 (*) TOTAL PROTEIN 6.7 ALBUMIN 3.7 BILIRUBIN TOTAL 0.2 (*) ALKALINE PHOSPHATASE AST 40 (*) ALT 14 GFR >60 GFR, >60 ANION GAP 14 C-REACTIVE PROTEIN - Abnormal CRP 11.9 (*) URINALYSIS WITH REFLEX MICROSCOPIC - Abnormal COLOR UA Yellow CLARITY UA Slightly Cloudy (*) SPECIFIC GRAVITY UA 1.023 PH UA 5.0 LEUKOCYTE ESTERASE UA Negative NITRITE UA Negative PROTEIN UA Negative GLUCOSE UA 1+ (*) KETONES UA Trace (*) UROBILINOGEN UA Normal BILIRUBIN UA Negative BLOOD UA Negative WBC UA 0-2 RBC UA 0-2 BACTERIA UA 1+ (*) EPITHELIAL CELLS, URINE 6-10 (*) PROTIME-INR - Abnormal PROTIME 11.6 (*) INR 0.9 LIPASE - Normal LIPASE 36 RADIOLOGY: No orders to display No orders to display EKG: PROCEDURES Procedures MEDICAL DECISION MAKING AND PLAN OF CARE Reviewed past records and noted on 05/14/18, her tryglycerides were 3,899 and cholesterol was 623. On, 04/10/18 CT abdomen showed mild infiltration of pancreatic tail and fatty liver. 5:53 PM: Discussed the patient's medical history, history of present illness, and current findings with Dr. Mayer (Cardiology) who agrees with plan of care. Advised to admit patient and patient last time needed plasmapheresis for her hyperlipidemia 6:37 PM: Discussed with ANNA Walsh ([facility] Hospitalist) who will admit to Medical floor under Dr. Means. MDM Summary Statement: 42 year old woman with a history of pancreatitis and hypertriglyceridemia presents to the emergencydepartment with diarrhea with associated abdominal pain, headache, and muscle cramping. She has no CVA tenderness on exam. Labs showed elevated WBC of 12.3 and CRP of 11.9. UA showed trace ketones but is otherwise unremarkable. Her labs from 2 days ago showed her triglycerides were 3,899 and cholesterol was 623. Discussed with Dr. Mayer who saw patient 2 days ago and agrees with plan for admission. Consulted with ANNA Walsh who will admit to Medical floor under Dr. Means for further evaluation. I have reviewed previous: notes, labs and CT I have reviewed current: labs I have reviewed nursing notes related to past medical history, social history, and review of systems and agree, unless otherwise noted. Consults: cardiology and hospitalist Medications Administered During the ED Stay from 05/16/2018 1523 to 05/16/20182008 Date/Time Order Dose Route Action 05/16/2018 1711 pantoprazole (PROTONIX) injection 40 mg 40 mg IV Given 05/16/2018 1710 ondansetron (ZOFRAN) 4 mg/2 mL injection 4 mg 4 mg IV Given 05/16/2018 1713 hyoscyamine sulfate injection 0.25 mg 0.25 mg IV Given 05/16/2018 1900 metoclopramide HCl (REGLAN) injection 10 mg 10 mg IV Given 05/16/2018 1853 morphine 4 mg/mL injection 4 mg 4 [...] mg tablet Take 100 mg by mouth. [id number]-Fish Oil [phone] Capsule Take 2 Caplets by mouth 2 timesdaily. Qty: 120 Capsule, Refills: 3 spironolactone (ALDACTONE) 25 mg tablet Take 25 mg by mouth daily. rosuvastatin (CRESTOR) 20 mg tablet Take 20 mg by mouth daily at bedtime. niacin (NIACOR) 500 mg tablet Take 500 mg by mouth 2 times daily. metFORMIN (GLUCOPHAGE) 500 mg tablet Take 1,000 mg by mouth 2 times daily with meals . LORazepam (ATIVAN) 1 mg tablet Take 1 mg by mouth 2 times daily as needed for Anxiety . citalopram (CeleXA) 40 mg tablet Take 40 mg by mouth daily at bedtime. fenofibrate (LOFIBRA) 160 mg Oral Tab Take 1 Tab by mouth daily. Qty: 90 Tab, Refills: 0 ondansetron (ZOFRAN ODT) 4 mg Tablet, Rapid Dissolve Dissolve 1 Tablet on top of tongue,then swallow with saliva every 6 hours as needed for nausea/vomiting. Qty: 30 Tablet, Refills: 0 insulin aspart protamine-aspart (NovoLOG MIX 70-30) 100 unit/mL (70-30) pen syringe Inject by subcutaneous injection 8 units breakfast 14 units lunch 18 units dinner Also with sliding scale. LAST VS BP: 102/54 (05/16/182009), Heart Rate: 90 bpm (05/16/182009), Resp: 16 (05/16/182009), Pulse: 90(05/16/181956), Temp: 98.2 ??F (36.8 ??C) (05/16/182009), Temp src: Oral (05/16/182009), SpO2: 99 % (05/16/182009) CLINICAL IMPRESSION Final diagnoses: [K52.9] Acute gastroenteritis (Primary) [R10.13] Epigastric pain [Z87.19] History of pancreatitis [E78.1] Hypertriglyceridemia [E11.9, Z79.4] Type 2 diabetes mellitus without complication, with long-term current use of insulin [Z82.49] Family history of early CAD [E88.81] Metabolic syndrome [Z72.0] Tobacco use [E03.9] Hypothyroidism, unspecified type DISPOSITION, EDUCATION AND MEDICATION RECONCILIATION Medications reconciled. See after visit summary for patient education on discharged patients. ED Disposition ED Disposition Condition User Date/Time Comment Admit Eva Reyes MD SatMay 16, 2018 6:45 PM ATTESTATION STATEMENTS This note has been prepared by Laura Carballo acting as a scribe for Dr. Eva Foreman on 05/16/2018 at 7:30 PM. The scribe's documentation has been prepared under my direction and personally reviewed by me, MD Mary , in its entirety on 05/16/18 at 11:22 PM. I confirm that the note above accurately reflects all work, treatment, procedures, and medical decision making performed by me. CE ASST documented in this encounter Miscellaneous Notes * Care Plan - Jeff Keller RN - 05/21/2018 6:15 PM CST Pt read and verbalized understanding of discharge instructions. Central line removed. Pt ordered and tolerated dinner. CE ASST * Care Plan - Ymaileth Carolina RN - 05/21/2018 3:34 AM CST Ms. Doss has c/o pain in abdominal area at times during shift. She has been given IV dilaudid perher request per JUN. She has been seen sleeping at times during this shift. IV fluids continued perMAR. No further concerns at this time. CE ASST * Care Plan - Reina Davidson RN - 05/20/2018 8:35 PM CST Triglyceride today 354. Diet was advanced for dinner to bland /low fat . Patient requested compazine after dinner, no emesis. Continue pain control w/ po and iv pain medication. Urinate large amount urine , bladder scan was done PVR was 176 ml . Continue ivf. POC was discussed with the patient CE ASST * Treatment Plan - Karen Cleveland RD - 05/20/2018 10:04 AM CST Order Writing Protocol for Registered Dietitians(RD) and Speech Language Pathologists (cord splicer) [facility] Enter Orders ???per protocol?? in the EHR Policy: With the goal of providing the most efficient, effective and safe process for initiating or changing nutrition therapy as recommended by a Registered Dietitian (RD) or Speech Language Pathologist (GAS APPLIANCE REPAIRER). This protocol gives the RD or GAS APPLIANCE REPAIRER Order writing privileges within her/his scope of practice. Definitions: An RD is considered qualified to write orders that do not require a physician co-signature by: o Maintaining registration through the Commission on Dietetic Registration o Maintaining licensure through [place] Licensure. o Demonstrating Clinical Nutrition competency as verified by the Clinical Solar Installer Pv initially and as part of the annual performance appraisal. A GAS APPLIANCE REPAIRER is considered qualified by virtue of: o Maintaining licensure as a GAS APPLIANCE REPAIRER in the state of [place] o Maintaining Certificate of Clinical Competency (CCC) as designated by the [employer] o Demonstrating competency under the direction of the freelance digital project manager of GAS APPLIANCE REPAIRER at [facility] ([facility]) Responsibilities: 1. The Physician: o Has final responsibility for orders dictating patient care in all cases and at all times. o Will write the initial diet order before the RD can change, modify or supplement the diet. o May discontinue any RD order at his/her discretion. 2. The RD: o May utilize this protocol when involved in the care of a patient. o May modify orders per approved protocol in the electronic health record. o Must maintain qualification as defined above. Laboratory Orders: o A RD may order a prealbumin to determine nutritional status or status of visceral protein stores to monitor nutritional status. Therapies 1. An RD may enter the following orders into the record as appropriate: o Modify diet texture and or liquid consistency as appropriate to tolerance, request and suspected swallowing dysfunction or as recommended by Speech Therapy. o Modify diet based on medical diagnosis: i.e. Regular to Diabetic Diet. o Modify calorie level of Renal, Diabetic and Weight Management diets based on nutrition assessmentof needs and weight goals. o Liberalize prescribed diet if oral intake is <50% of meals and/is on calorie count or comfort measures. o Modify diet when diet change is not detrimental cultural belief. o Liberalize diet based on patient demand. Registered Dietitian will document patient???s demands in nutrition note and change the diet order noting ???per patient demand?? in the comment section oforder. 10/11/2009 [employer] Protocol 2. An GAS APPLIANCE REPAIRER may modify diet texture or liquid consistency according to the following guidelines: o Only texture modifications (with aspiration precautions) will be made (no nutritional modifications) o The GAS APPLIANCE REPAIRER will see the patient and make texture modifications only after being consulted by a physician or midlevel practitioner. o Diet will not be upgraded if GI contraindications are present unless given approval by the consulting physician or midlevel practitioner o Diet will not be changed if the patient is NPO unless given approval by physician or midlevel practitioner o cord splicer will follow any diet restrictions posted in the consultation order such as: ???test and upgrade to clears only?? o Nutritional restrictions will be maintained when changing the consistency of a diet (i.e., diabetic parameters will not be changed when moving a patient from puree to a soft diet) 3. An RD may order diet fortification as follows: o Initiate, change or stop nutritional supplements within the diet order based on the RD???s assessment or patient request (e.g., add Ensure TID as patient only consuming 45% of meals or patient has pressure sores). o Add nutritional supplements including modular dietary products to increase nutrient intake. 4. An RD may write enteral nutrition orders or make modifications as follows: o Write the initial Tube Feeding (TF) order if the physician orders ???TF per Clinical Nutrition?? or ???TF per RD?? . o Substitute a hospital approved formula that has similar nutrient profile to the one ordered. o Add protein or wound healing supplement to meet the patient???s protein needs. o Write nocturnal or bolus TF regimen if the physician writes an order indicating tube feeding change per RD, or per Clinical Nutrition. Other Treatments Calorie Counts: o An RD may initiate or discontinue calorie count as appropriate. Add any instructions here CE ASST * Care Plan - Susan Lim GN - 05/20/2018 6:04 AM CST Pt arrived to floor and oriented to room. C/o pain; prn percocet and dilaudid given w/ slight relief. BS's done q4h- Appetite poor. IVF infusing. .Undress and Assess performed by: Bere Admission or upon transfer to: [facility] ~~~~~~~~~~~~~~~~~~~~~~~~~~~~ Is the patient a paraplegic/quadriplegic? No Does the patient have new purple/sissy/dark red over bony prominences? No Does the patient have an ostomy? No Is the length of stay >2 weeks? No ~If ANY answer 'yes'- please consult~ Patient does not have skin breakdown. Wound care consult was not initiated. Location/ Description of breakdown: No skin breakdown noted Apply Protective Dressings to Sacrum and Heels (Mepilex) as per Pathway Patient arrived to this room with the following belongings/valuables:(ie:dentures, hearing aids, glasses): Patient arrived to this room with the following medical equipment/devices (ie: insulin pump, home CPAP, walker): All Jewelry removed from patient N/A Disposition of belongings/valuables: Ring, phone, purse, and bag at bedside w/ pt CE ASST * Care Plan - Zahraa Latham RN - 05/19/2018 11:48 AM CST Discharge Planning ??? Identify discharge needs upon admission and through discharge Progressing Initial Discharge Planning Assessment completed. Introductory Care Management letter given. Patient admitted with pancreatitis s/y hypertriglyceridemia requiring plasmapheresis. Care Management visited with patient, and discussed Care Management role and discharge planning. 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 Prior to admission, patient resided with her spouse and 15 year old son in a 2 story duplex with 1 step to enter, bedroom and bathroom on the main level. Prior to admission, patient received no assistance, and had no services in home. Durable medical equipment at home includes glucometer. Patient has not had a stay at an acute care hospital in the last 30 days. If patient will go to SNF at sc, patient does not need a PASARR screening to be started (ie, prior psych admission or intensive services, MR/DD diagnosis prior to the age of 22). Readmission Risk (patient becomes high risk with a score of 8 or greater) 5 Total Score 5 Prior Hospitalizations Primary Emergency Contact: José Miguel Doss PCP verified as Guerrero Middleton PA-C. Patient's insurance verified as Payor: [email or web address] / Plan: ALL SAVERS CHOICE / Product Type: Commercial / The patient's preferred pharmacy [facility] [address] [place] [address] [place] [address] Discussed discharge goals and possible discharge needs including home with family. No discharge needs identified at this time. Care Management contact information provided. Care Management will continue to follow and assist asneeded. Zahraa Latham RN Care Manager [phone] CE ASST * Therapy Evaluation - Luisa Royal, Occupational Therapist - 05/19/2018 8:32 AM CST Occupational Therapy order received, chart reviewed, and evaluation completed. Please see full evaluation below for details. Daily OT notes will be located in Care Plan notes. Thank You. OT INITIAL EVALUATION Diagnosis: Acute pancreatitis secondary to hypertriglyceridemia MD: Dr. Vences Activity Order: Ambulate with assist, activity as tolerated Weight Bearing Status: No restrictions Precautions: Fall, NPO PMH: Past Medical History: Diagnosis Date ??? [...] (polycystic ovarian syndrome) 05/15/2011 ??? Smoker S: Pt agreed to participate in OT evaluation. Pt stated that she was in 6/10 pain at rest and 8/10 pain with activity. The pt was provided with the following pain interventions throughout the evaluation: avoiding unnecessary movement, positioning, and contacting the RN to request pain medication for pt. The pt was resting quietly at the completion of the evaluation. Prior level of function and Home Environment: The pt lives in a double story home with a few small steps to enter. The pt's bedroom and bathroom are located on the main level of the home. The pt has a tub/shower combination. The pt reports no previous use of assistive devices for ADL including functional mobility. 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 O: Vision: No glasses Cognition/Perception: Pt stated name, date of , and reason for admission UE Range of motion: WFL, Muscle Tone: WFL, UE Strength: Observed via functional activity and found to be WFL Coordination: WFL Hand Dominant: Right Sensation: Light touch intact FUNCTIONAL ACTIVITIES ASSESSMENT: Grooming: Independently gathered items and brushed teeth and washed hands while standing at the sink Dressing: Pt donned BLE socks while seated edge of bed Toilet Transfer: Independent Tub/Shower Transfer: Independent with assimilated tub/shower transfer Functional Mobility: Pt was independent with functional mobility via walking in room and transfers. Patient/Family Education: OT, D/c plan from OT services Equipment Needed at D/C: none A: Patient does not qualify for skilled OT services at this time due to patient being at prior level of function with all UE strength, ADLs and functional mobility. Recommend patient perform ADLs andbathroom transfers with nursing staff to maintain current level of function. EVALUATION COMPLEXITY: Low Complexity -These findings are based on patient's self reporting, therapist's objective findings and professional determinations. P: Will DC OT at this time. RN notified and aware of DC from therapy services Luisa Royal MS, OTR/L Zone #: [id number] CE ASST * Therapy Evaluation - Snehal Ba, Physical Therapist - 05/18/2018 2:54 PM CST Physical Therapy order received, chart reviewed, and evaluation completed. Please see full evaluation below for details. Daily PT notes will be located in Care Plan notes. Thank You. PT INITIAL EVALUATION Diagnosis: 42 yo F admit on 05/16/18 with hypertriglyceridemia requiring aphresis MD: Alfred REHMAN Activity Order: Act As charisse Weight Bearing Status: No restrictions Precautions: Fall PMH: Past Medical History: Diagnosis Date ??? [...] Pancreatitis ??? PCOS (polycystic ovarian syndrome) 05/15/2011 Past Surgical History: Procedure Laterality Date ??? HX APPENDECTOMY ??? HX HYSTERECTOMY partial due to endometriosis 2006 ??? [place] ESOPHAGOGASTRODUODENOSCOPY TRANSORAL DIAGNOSTIC N/A 03/08/2018 ESOPHAGOGASTRODUODENOSCOPY performed by Ceasar Vega MD at [facility] GI LAB S: Patient reports 10/06 pain. Pain intervention: RN aware; Meds admin post session Response to pain intervention: Appeared content, Agrees to continue Living Situation/Functional Level ROTO ROOTER OPERATOR: Pt lives with and son in a 2 level duplex with 1 step to enter; Bed/Bath on mainlevel; Indep prior to admit Home Equipment: none O: Appearance: Resting in semi-fowlers position; at bedside; current lines: tele, IV Cognition/Perception: A&O x4 ROM: Bilateral Upper Extremity WFL, Lower Extremity WFL Muscle Tone: WFL Strength: Bilateral Upper Extremity WFL, Lower Extremity WFL MOBILITY ASSESSMENT: Bed Mobility: Indep with all aspects of bed mobility Transfers: Indep with all aspects of transfers Gait: Pt ambulated >100 ft Indep --Gait Deviations: No significant deviation noted; guarded secondary to pain Balance: Good without UE support Stairs/Curb: Pt ascended/descended 2 steps with 1 HR Yessica Patient/Family Education: Pt educated on DC PT plan of care; Pt Indep Positioning after tx: Returned to bed; all needs within reach A: Assessment: Pt tolerated PT Eval well; No further needs; pt indep Clinical Presentation: Stable and/or uncomplicated EVALUATION COMPLEXITY: Low Complexity -These findings are based on patient's self reporting, therapist's objective findings and professional determinations. Recommend: Home with family Recommendations were made on today's assessment. Additional recommendations will be based on patient's progress in therapy. P: PT to see patient: PT Eval only; Pt indep; no further needs Recommendations: For: Patient, Family, Nursing --OOB to chair with chair alarm, ambulate in room or hallway, with assist Equipment to be issued at DC: none --Patient involved in goal setting: yes Patient goals will be found in the Care Plan section of the medical chart. Zone #: [id number] On weekends--please call [phone] CE ASST documented in this encounter Plan of Treatment Upcoming Encounters Date Type Department Care Team (Late st Contact Info) Description 09/14/2024 3:00 PM CDT Office Visit [facility] - [place] [phone] [place] [address] Marlys Mayer MD [address] [place] [address] documented as of this encounter Procedures Procedure Name Priority Date/Time Associated Diagnosis Comments POC GLUCOSE Routine 05/21/2018 5:27 PM OFFICE ASST POC GLUCOSE Routine 05/21/2018 3:03 PM OFFICE ASST POC GLUCOSE Routine 05/21/2018 10:20 AM OFFICE ASST CBC WITH DIFFERENTIAL Routine 05/21/2018 6:48 AM OFFICE ASST TRIGLYCERIDE Routine 05/21/2018 6:48 AM OFFICE ASST COMPREHENSIVE METABOLIC PANEL Routine 05/21/2018 6:48 AM OFFICE ASST POC GLUCOSE Routine 05/20/2018 9:11 PM OFFICE ASST POC GLUCOSE Routine 05/20/2018 5:13 PM OFFICE ASST POC GLUCOSE Routine 05/20/2018 12:50 PM OFFICE ASST POC GLUCOSE Routine 05/20/2018 8:53 AM OFFICE ASST CBC WITH DIFFERENTIAL Routine 05/20/2018 4:28 AM OFFICE ASST TRIGLYCERIDE Routine 05/20/2018 4:28 AM OFFICE ASST COMPREHENSIVE METABOLIC PANEL Routine 05/20/2018 4:28 AM OFFICE ASST POC GLUCOSE Routine 05/20/2018 4:25 AM OFFICE ASST POC GLUCOSE Routine 05/20/2018 1:37 AM OFFICE ASST POC GLUCOSE Routine 05/19/2018 8:27 PM OFFICE ASST TRIGLYCERIDE Routine 05/19/2018 6:23 PM OFFICE ASST POC GLUCOSE Routine 05/19/2018 4:07 PM OFFICE ASST EKG 12-LEAD Routine 05/19/2018 2:29 PM OFFICE ASST POC GLUCOSE Routine 05/19/2018 11:55 AM OFFICE ASST POC GLUCOSE Routine 05/19/2018 7:58 AM OFFICE ASST CBC WITH DIFFERENTIAL Routine 05/19/2018 5:37 AM OFFICE ASST TRIGLYCERIDE Routine 05/19/2018 5:37 AM OFFICE ASST COMPREHENSIVE METABOLIC PANEL Routine 05/19/2018 5:37 AM OFFICE ASST POC GLUCOSE Routine 05/19/2018 3:53 AM OFFICE ASST POC GLUCOSE Routine 05/18/2018 11:55 PM OFFICE ASST POC GLUCOSE Routine 05/18/2018 8:00 PM OFFICE ASST TRIGLYCERIDE Routine 05/18/2018 5:30 PM OFFICE ASST POC GLUCOSE Routine 05/18/2018 2:01 PM OFFICE ASST POC GLUCOSE Routine 05/18/2018 12:14 PM OFFICE ASST POC GLUCOSE Routine 05/18/2018 10:35 AM OFFICE ASST PROTIME-INR Routine 05/18/2018 9:14 AM OFFICE ASST POC GLUCOSE Routine 05/18/2018 9:04 AM OFFICE ASST POC GLUCOSE Routine 05/18/2018 8:12 AM OFFICE ASST CBC WITH DIFFERENTIAL Routine 05/18/2018 6:03 AM OFFICE ASST TRIGLYCERIDE Routine 05/18/2018 6:03 AM OFFICE ASST COMPREHENSIVE METABOLIC PANEL Routine 05/18/2018 6:03 AM OFFICE ASST POC GLUCOSE Routine 05/18/2018 5:09 AM OFFICE ASST POC GLUCOSE Routine 05/18/2018 4:04 AM OFFICE ASST POC GLUCOSE Routine 05/18/2018 3:04 AM OFFICE ASST POC GLUCOSE Routine 05/18/2018 2:06 AM OFFICE ASST POC GLUCOSE Routine 05/18/2018 1:05 AM OFFICE ASST POC GLUCOSE Routine 05/18/2018 12:01 AM OFFICE ASST POC GLUCOSE Routine 05/17/2018 11:05 PM OFFICE ASST POC GLUCOSE Routine 05/17/2018 10:04 PM OFFICE ASST POC GLUCOSE Routine 05/17/2018 9:01 PM OFFICE ASST POC GLUCOSE Routine 05/17/2018 8:03 PM OFFICE ASST POC GLUCOSE Routine 05/17/2018 7:04 PM OFFICE ASST POC GLUCOSE Routine 05/17/2018 6:07 PM OFFICE ASST TRIGLYCERIDE Routine 05/17/2018 4:46 PM OFFICE ASST POC GLUCOSE Routine 05/17/2018 3:57 PM OFFICE ASST POC GLUCOSE Routine 05/17/2018 3:00 PM OFFICE ASST POC GLUCOSE Routine 05/17/2018 1:58 PM OFFICE ASST POC GLUCOSE Routine 05/17/2018 12:52 PM OFFICE ASST XR CHEST PA OR AP 1 VW Stat 9 12:43 PM OFFICE ASST POC GLUCOSE Routine 05/17/2018 11:43 AM OFFICE ASST POC GLUCOSE Routine 05/17/2018 10:47 AM OFFICE ASST POC GLUCOSE Routine 05/17/2018 10:26 AM OFFICE ASST POC GLUCOSE Routine 05/17/2018 9:05 AM OFFICE ASST POC GLUCOSE Routine 05/17/2018 7:52 AM OFFICE ASST POC GLUCOSE Routine 05/17/2018 7:02 AM OFFICE ASST POC GLUCOSE Routine 05/17/2018 6:03 AM OFFICE ASST POC GLUCOSE Routine 05/17/2018 4:58 AM OFFICE ASST POC GLUCOSE Routine 05/17/2018 4:10 AM OFFICE ASST POC GLUCOSE Routine 05/17/2018 3:17 AM OFFICE ASST POC GLUCOSE Routine 05/17/2018 2:05 AM OFFICE ASST CBC WITH DIFFERENTIAL Routine 05/17/2018 1:21 AM OFFICE ASST TRIGLYCERIDE Routine 05/17/2018 1:21 AM OFFICE ASST COMPREHENSIVE METABOLIC PANEL Routine 05/17/2018 1:21 AM OFFICE ASST OT EVAL AND TREAT Routine 05/16/2018 10: 29 PM OFFICE ASST PT EVAL AND TREAT Routine 05/16/2018 10: 29 PM OFFICE ASST LACTIC ACID Stat 05/16/2018 9:39 PM OFFICE ASST HEMOGLOBIN A1C Routine 05/16/2018 9:39 PM OFFICE ASST TSH Routine 05/16/2018 9:38 PM OFFICE ASST OSMOLALITY Routine 05/16/2018 9:38 PM OFFICE ASST LIPID PANEL Routine 05/16/2018 9:38 PM OFFICE ASST POC GLUCOSE Routine 05/16/2018 7:56 PM OFFICE ASST COMPREHENSIVE METABOLIC PANEL Stat 05/16/2018 5:41 PM OFFICE ASST CBC WITH DIFFERENTIAL Stat 05/16/2018 4:39 PM OFFICE ASST PROTIME-INR Stat 05/16/2018 4:39 PM OFFICE ASST C-REACTIVE PROTEIN Stat 05/16/2018 4: 39 PM OFFICE ASST LIPASE Stat 05/16/2018 4:39 PM OFFICE ASST URINALYSIS W/REFLEX MICROSCOPIC Stat 05/16/2018 4:31 PM OFFICE ASST documented in this encounter Results * (ABNORMAL) POC GLUCOSE (05/21/2018 5:27 PM OFFICE ASST) GLUCOSE POC 171(H) 74 - 99 mg/dL 05/21/2018 5:41 PM OFFICE ASST [facility] COMMENT, GLU POC Notified RN/ 05/21/2018 5:41 PM OFFICE ASST [facility] USABILITY ENGINEER NAME POC BRAULIO MORGANECCA 05/21/2018 5:41 PM OFFICE ASST [facility] Whole blood specimen (specimen) 05/21/2018 5:27 PM OFFICE ASST 05/21/2018 5:41 PM OFFICE ASST Karen Thomas MD POINT OF CARE TESTIN G [facility] [employer] [facility]# [id number] [address] [facility] [place] [address] * (ABNORMAL) POC GLUCOSE (05/21/2018 3:03 PM OFFICE ASST) GLUCOSE POC 186(H) 74 - 99 mg/dL 05/21/2018 3:17 PM OFFICE ASST [facility] COMMENT, GLU POC Notified RN/ 05/21/2018 3:17 PM OFFICE ASST [facility] USABILITY ENGINEER NAME POC BRAULIO MORGANECCA 05/21/2018 3:17 PM OFFICE ASST [facility] Whole blood specimen (specimen) 05/21/2018 3:03 PM OFFICE ASST 05/21/2018 3:17 PM OFFICE ASST Karen Thomas MD POINT OF CARE TESTJERONIMO Serrano Performing Organization Address [facility]/ZIP Co de Phone Number [facility] [employer] [facility] CLIA# [id number] [address] [place] [address] * (ABNORMAL) POC GLUCOSE (05/21/2018 10:20 AM OFFICE ASST) GLUCOSE POC 155(H) 74 - 99 mg/dL 05/21/2018 10:36 AM OFFICE ASST [employer] [facility] USABILITY ENGINEER NAME KAYLYN LONGORIA 05/21/2018 10:36 AM OFFICE ASST [employer] [facility] Whole blood specimen (specimen) 05/21/2018 10:20 AM OFFICE ASST 05/21/2018 10:36 AM OFFICE ASST Karen Thomas MD POINT OF CARE TESTJERONIMO Serrano Performing Organization Address [facility] Co de Phone Number [employer] [facility]# [id number] [address] [place] [address] * (ABNORMAL) COMPREHENSIVE METABOLIC PANEL (05/21/2018 6:48 AM OFFICE ASST) SODIUM 145 136 - 145 mmol/L 05/21/2018 7:37 AM OFFICE ASST [employer] [facility] POTASSIUM 3.4(L) 3.5 - 5.0 mmol/L 05/21/2018 7:37 AM OFFICE ASST [employer] [facility]AT[facility] SERVICES - [facility] CHLORIDE 102 98 - 107 mmol/L 05/21/2018 7:37 AM OFFICE ASST [employer] [facility] - [facility] CO2 29 22 - 29 mmol/L 05/21/2018 7:37 AM OFFICE ASST [employer] [facility] - [facility] CALCIUM 9.1 8.6 - 10.2 mg/dL 05/21/2018 7:37 AM OFFICE ASST [employer] [facility] - [facility] BUN 5(L) 6 - 20 mg/dL 05/21/2018 7:37 AM OFFICE ASST [facility] - . [facility] CREATININE 0.59 0.51 - 0.95 mg/dL 05/21/2018 7:37 AM [facility] [employer] [facility] GLUCOSE 158(H) 74 - 99 mg/dL 05/21/2018 7:37 AM [facility] - . [facility] TOTAL PROTEIN 5.8(L) 6.7 - 8.6 g/dL 05/21/2018 7:37 AM [facility] [facility] [employer] [facility]. [facility] ALBUMIN 4.3 3.5 - 5.2 g/dL 05/21/2018 7:37 AM [facility] [employer] LABORATORY [facility] BILIRUBIN TOTAL 0.6 0.3 - 1.2 mg/dL 05/21/2018 7:37 AM [facility] [employer] [facility] ALKALINE PHOSPHATASE 31(L) 35 - 104 U/L 05/21/2018 7:37 AM [facility] [employer] [facility] AST 12 <33 U/L 05/21/2018 7:37 AM [facility] [employer] [facility]. [facility] ALT 9 <34 U/L 05/21/2018 7:37 AM [facility] [employer] [facility] GFR >60 >=60 mL/min/1.7 3 sq meter 05/21/2018 7:37 AM [facility] [employer] [facility] Comment: eGFR has not been validated [...] GFR, >60 >=60 mL/min/1.7 3 sq meter 05/21/2018 7:37 AM [facility] [employer] LABORATORY [facility] ANION GAP 14 8 - 16 mmol/L 05/21/2018 7:37 AM [facility] [employer] [facility] Blood Venipuncture / Unknown 05/21/2018 6:48 AM OFFICE ASST 05/21/2018 7:01 AM [facility] [employer] LABORATORY [facility] - 05/21/2018 7:37 AM OFFICE ASST Samples containing indocyanine green cause interferences on Total and/or Direct Bilirubin and must not be measured. Loki Vences MD CHEMISTRY ORDERABLES [facility] [employer] [facility] - [facility] CLIA# [id number] [address] [place] [address] * (ABNORMAL) CBC WITH DIFFERENTIAL (05/21/2018 6:48 AM OFFICE ASST) [facility] WBC 7.8 4.0 - 9.8 K/uL 05/21/2018 7:13 AM [facility] [employer] [facility] RBC 3.67(L) 3.90 - 4.90 M/uL 05/21/2018 7:13 AM [facility] [employer] [facility] HEMOGLOBIN 11.1(L) 11.8 - 14.8 g/dL 05/21/2018 7:13 AM [facility] [employer] [facility] HEMATOCRIT 33.5(L) 35.5 - 44.0 % 05/21/2018 7:13 AM [facility] [employer] [facility] MCV 91.3 82.0 - 99.0 fL 05/21/2018 7:13 AM [facility] [employer] [facility] MCH 30.2 27.2 - 32.6 pg 05/21/2018 7:13 AM [facility] [employer] [facility] MCHC 33.1 31.5 - 35.5 g/dL 05/21/2018 7:13 AM [facility] [employer] SERVICES - [facility] RDW 13.5 11.5 - 14.5 % 05/21/2018 7:13 AM [facility] [employer] [facility] RDW-STDEV 45.4 37.1 - 48.7 fL 05/21/2018 7:13 AM [facility] [employer] [facility] PLATELETS 184 140 - 350 K/uL 05/21/2018 7:13 AM [facility] [employer] [facility] MPV 9.3 9.3 - 12.4 fL 05/21/2018 7:13 AM [facility] [employer] [facility] NEUTROPHILS 68 % 05/21/2018 7:13 AM [facility] LYMPHOCYTES 24 % 05/21/2018 7:13 AM [facility] MONOCYTES 6 % 05/21/2018 7:13 AM [facility] EOSINOPHILS 1 % 05/21/2018 7:13 AM [facility] BASOPHILS 0 % 05/21/2018 7:13 AM [facility] IMMATURE GRANULOCYTES 1 % 05/21/2018 7:13 AM [facility] Comment:IG (Immature Granulo cyte) count includes Metamyelocytes, Myelocytes, and Promyelocytes NEUTROPHIL ABSOLUTE 5.32 1.90 - 7.00 K/uL 05/21/2018 7:13 AM [facility] LYMPHOCYTE ABSOLUTE 1.84 0.70 - 4.50 K/uL 05/21/2018 7:13 AM [facility] MONOCYTE ABSOLUTE 0.50 0.10 - 1.30 K/uL 05/21/2018 7:13 AM [facility] EOSINOPHIL ABSOLUTE 0.07 0.00 - 0.70 K/uL 05/21/2018 7:13 AM [facility] BASOPHILS ABSOLUTE 0.02 0.00 - 0.20 K/uL 05/21/2018 7:13 AM [facility] IMMATURE GRANULOCYTES ABSOLUTE 0.06(H) 0.00 - 0.03 K/uL 05/21/2018 7:13 AM [facility] Blood Venipuncture / Unknown 05/21/2018 6:48 AM OFFICE ASST 05/21/2018 7:02 AM [facility] Loki Vences MD HEMATOLOGY ORDERABLE S [id number] [facility] [place] [address] * (ABNORMAL) TRIGLYCERIDE (05/21/2018 6:48 AM OFFICE ASST) TRIGLYCERIDE 324(H) <150 mg/dL 05/21/2018 7:37 AM [facility] [employer] SERVICES [facility] Blood Venipuncture / Unknown 05/21/2018 6:48 AM OFFICE ASST 05/21/2018 7:01 AM OFFICE ASST Narrative [facility] LABORATORY [facility] - 05/21/2018 7:37 AM OFFICE ASST TRIGLYCERIDES ? mg/dL Normal ?< 150 Borderline High ?150 - 199 High ? 200 - 499 Very High ? >= 500 Based on AHA/NCEP Guidelines. Loki Vences MD CHEMISTRY ORDERABLES Performing Organization Address [facility] Co de Phone Number [facility]# [id number] [address] [place] [address] * (ABNORMAL) POC GLUCOSE (05/20/2018 9:11 PM OFFICE ASST) GLUCOSE POC 196(H) 74 - 99 mg/dL 05/20/2018 9:37 PM OFFICE ASST [facility] LABORATORY [facility] USABILITY ENGINEER NAME POC YAMILETH [place] 05/20/2018 9:37 PM OFFICE ASST [facility] [employer] [facility] Whole blood specimen (specimen) 05/20/2018 9:11 PM OFFICE ASST 05/20/2018 9:37 PM OFFICE ASST Manan Dumont MD POINT OF CARE TEST ING Performing Organization Address [facility] Co de Phone Number [facility] [employer] [facility]# [id number] [address] [place] [address] * (ABNORMAL) POC GLUCOSE (05/20/2018 5:13 PM OFFICE ASST) GLUCOSE POC 127(H) 74 - 99 mg/dL 05/20/2018 5:29 PM OFFICE ASST [facility] LABORATORY [facility] USABILITY ENGINEER NAME POC SUNIL PEÑA 05/20/2018 5:29 PM OFFICE ASST [facility] LABORATORY [facility] Whole blood specimen (specimen) 05/20/2018 5:13 PM OFFICE ASST 05/20/2018 5:29 PM OFFICE ASST Manan Dumont MD POINT OF CARE TEST ING [facility] [employer] [facility] CLIA# [id number] [address] [place] [address] * (ABNORMAL) POC GLUCOSE (05/20/2018 12:50 PM OFFICE ASST) GLUCOSE POC 136(H) 74 - 99 mg/dL 05/20/2018 1:26 PM OFFICE ASST [facility] LABORATORY [facility] USABILITY ENGINEER NAME POC SUNIL PEÑA 05/20/2018 1:26 PM [facility] Whole blood specimen (specimen) 05/20/2018 12:50 PM OFFICE ASST 05/20/2018 1:26 PM OFFICE ASST Manan Dumont MD POINT OF CARE TEST ING Performing Organization Address [facility]/ZIP Co de Phone Number [facility] [employer] [facility] CLKS# [id number] [address] [place] [address] * (ABNORMAL) POC GLUCOSE (05/20/2018 8:53 AM OFFICE ASST) GLUCOSE POC 141(H) 74 - 99 mg/dL 05/20/2018 9:24 AM OFFICE ASST [facility] LABORATORY [facility] USABILITY ENGINEER NAME POC SUNIL PEÑA 05/20/2018 9:24 AM OFFICE ASST [employer] LABORATORY [facility] Whole blood specimen (specimen) 05/20/2018 8:53 AM OFFICE ASST 05/20/2018 9:24 AM OFFICE ASST Manan Dumont MD POINT OF CARE TEST ING Performing Organization Address [facility]/ZIP Co de Phone Number [facility] [employer] [facility] CLIA# [id number] [address] [place] [address] * (ABNORMAL) COMPREHENSIVE METABOLIC PANEL (05/20/2018 4:28 AM [facility]) SODIUM 140 136 - 145 mmol/L 05/20/2018 5:09 AM OFFICE ASST [employer] LABORATORY SERVICES [facility] POTASSIUM 3.5 3.5 - 5.0 mmol/L 05/20/2018 5:09 AM OFFICE ASST [employer] LAB[facility]ATORY [facility] CHLORIDE 102 98 - 107 mmol/L 05/20/2018 5:09 AM OFFICE ASST [employer] LAB[facility]ATORY [facility] CO2 26 22 - 29 mmol/L 05/20/2018 5:09 AM [employer] LABORATORY SERVICES - [facility] CALCIUM 8.7 8.6 - 10.2 mg/dL 05/20/2018 5:09 AM OFFICE ASST [employer] [facility]ATORY [facility] BUN 3(L) 6 - 20 mg/dL 05/20/2018 5:09 AM [employer] [facility]ATORY [facility] CREATININE 0.52 0.51 - 0.95 mg/dL 05/20/2018 5:09 AM OFFICE ASST [employer] [facility]ATORY [facility] GLUCOSE 150(H) 74 - 99 mg/dL 05/20/2018 5:09 AM [employer] [facility]ATORY [facility] TOTAL PROTEIN 5.0(L) 6.7 - 8.6 g/dL 05/20/2018 5:09 AM [employer] [facility]ATORY [facility] ALBUMIN 4.3 3.5 - 5.2 g/dL 05/20/2018 5:09 AM [employer] [facility]ATORY [facility] BILIRUBIN TOTAL 0.6 0.3 - 1.2 mg/dL 05/20/2018 5:09 AM [employer] LABORATORY SERVICES [facility] ALKALINE PHOSPHATASE 22(L) 35 - 104 U/L 05/20/2018 5:09 AM [employer] SERVICES - [facility] AST 10 <33 U/L 05/20/2018 5:09 AM [employer] LABORATORY SERVICES [facility] ALT 7 <34 U/L 05/20/2018 5:09 AM [employer] LAB[facility]ATORY [facility] GFR >60 >=60 mL/min/1.7 3 sq meter 05/20/2018 5:09 AM [employer] [facility]ATORY [facility] Comment: eGFR [...] GFR, >60 >=60 mL/min/1.7 3 sq meter 05/20/2018 5:09 AM [facility] [employer] [facility] ANION GAP 12 8 - 16 mmol/L 05/20/2018 5:09 AM [facility] [employer] [facility] Blood Venipuncture / Unknown 05/20/2018 4:28 AM OFFICE ASST 05/20/2018 4:33 AM [facility] [employer] [facility] - 05/20/2018 5:09 AM [facility] Samples containing indocyanine green cause interferences on Total and/or Direct Bilirubin and must not be measured. Loki Vences MD CHEMISTRY ORDERABLES [facility] [employer] [facility]# [id number] [address] [facility] [place] [address] * (ABNORMAL) CBC WITH DIFFERENTIAL (05/20/2018 4:28 AM OFFICE ASST) WBC 7.3 4.0 - 9.8 K/uL 05/20/2018 4:52 AM [facility] [employer] [facility] RBC 3.35(L) 3.90 - 4.90 M/uL 05/20/2018 4:52 AM [facility] [employer] [facility] HEMOGLOBIN 10.2(L) 11.8 - 14.8 g/dL 05/20/2018 4:52 AM [facility] [employer] [facility] HEMATOCRIT 30.6(L) 35.5 - 44.0 % 05/20/2018 4:52 AM [facility] [employer] [facility] MCV 91.3 82.0 - 99.0 fL 05/20/2018 4:52 AM [facility] [employer] [facility] MCH 30.4 27.2 - 32.6 pg 05/20/2018 4:52 AM [employer] LABORATORY SERVICES - [facility] MCHC 33.3 31.5 - 35.5 g/dL 05/20/2018 4:52 AM OFFICE ASST [employer] LAB[facility]ATORY SERVICES [facility] RDW 13.6 11.5 - 14.5 % 05/20/2018 4:52 AM OFFICE ASST [employer] LAB[facility]ATORY [facility] RDW-STDEV 45.4 37.1 - 48.7 fL 05/20/2018 4:52 AM OFFICE ASST [employer] [facility]ATORY [facility] PLATELETS 164 140 - 350 K/uL 05/20/2018 4:52 AM OFFICE ASST [employer] LAB[facility]ATORY SERVICES [facility] MPV 9.4 9.3 - 12.4 fL 05/20/2018 4:52 AM OFFICE ASST [employer] LABORATORY [facility] NEUTROPHILS 64 % 05/20/2018 4:52 AM [employer] LABORATORY SERVICES [facility] LYMPHOCYTES 28 % 05/20/2018 4:52 AM OFFICE ASST [employer] [facility]ATORY [facility] MONOCYTES 7 % 05/20/2018 4:52 AM OFFICE ASST [employer] [facility]ATORY [facility] EOSINOPHILS 1 % 05/20/2018 4:52 AM OFFICE ASST [employer] [facility]AT[facility] BASOPHILS 0 % 05/20/2018 4:52 AM [employer] LABORATORY [facility] IMMATURE GRANULOCYTES 0 % 05/20/2018 4:52 AM [employer] LAB[facility]ATORY [facility] NEUTROPHIL ABSOLUTE 4.64 1.90 - 7.00 K/uL 05/20/2018 4:52 AM [employer] LAB[facility]ATORY [facility] LYMPHOCYTE ABSOLUTE 2.05 0.70 - 4.50 K/uL 05/20/2018 4:52 AM [employer] LABORATORY SERVICES [facility] MONOCYTE ABSOLUTE 0.50 0.10 - 1.30 K/uL 05/20/2018 4:52 AM OFFICE ASST [employer] [facility]AT[facility] EOSINOPHIL ABSOLUTE 0.07 0.00 - 0.70 K/uL 05/20/2018 4:52 AM OFFICE ASST [employer] [facility]AT[facility] BASOPHILS ABSOLUTE 0.02 0.00 - 0.20 K/uL 05/20/2018 4:52 AM OFFICE ASST [employer] LABORATORY SERVICES [facility] IMMATURE GRANULOCYTES ABSOLUTE 0.02 0.00 - 0.03 K/uL 05/20/2018 4:52 AM [employer] LABORATORY SERVICES [facility] Blood Venipuncture / Unknown 05/20/2018 4:28 AM OFFICE ASST 05/20/2018 4:33 AM OFFICE ASST Loki Vences MD HEMATOLOGY ORDERABLE S Performing Organization Address [facility] Co de Phone Number [facility]# [id number] [address] [place] [address] * (ABNORMAL) TRIGLYCERIDE (05/20/2018 4:28 AM OFFICE ASST) TRIGLYCERIDE 354(H) <150 mg/dL 05/20/2018 5:09 AM [facility] [employer] [facility] Blood Venipuncture / Unknown 05/20/2018 4:28 AM OFFICE ASST 05/20/2018 4:33 AM OFFICE ASST Narrative [facility] [employer] [facility] - 05/20/2018 5:09 AM OFFICE ASST TRIGLYCERIDES ? mg/dL Normal ?< 150 Borderline High ?150 - 199 High ? 200 - 499 Very High ? >= 500 Based on AHA/NCEP Guidelines. Loki Vences MD CHEMISTRY ORDERABLES Performing Organization Address [facility] de Phone Number [facility] [employer] [facility]# [id number] [address] [place] [address] * (ABNORMAL) POC GLUCOSE (05/20/2018 4:25 AM OFFICE ASST) GLUCOSE POC 146(H) 74 - 99 mg/dL 05/20/2018 6:01 AM [facility] LABORATORY [facility] COMMENT, GLU POC Notified RN/MD 05/20/2018 6:01 AM [facility] LABORATORY [facility] USABILITY ENGINEER NAME POC SREE WALKER 05/20/2018 6:01 AM [facility] [employer] [facility] Whole blood specimen (specimen) 05/20/2018 4:25 AM OFFICE ASST 05/20/2018 6:00 AM OFFICE ASST Manan Dumont MD POINT OF CARE TEST ING Performing Organization Address [facility] Co de Phone Number [facility] [employer] [facility]# [id number] [address] [place] [address] * (ABNORMAL) POC GLUCOSE (05/20/2018 1:37 AM OFFICE ASST) GLUCOSE POC 157(H) 74 - 99 mg/dL 05/20/2018 1:50 AM OFFICE ASST [employer] LABORATORY SERVICES [facility] COMMENT, GLU POC Notified RN/ 05/20/2018 1:50 AM OFFICE ASST [employer] LABORATORY SERVICES [facility] USABILITY ENGINEER NAME POC SREE WALKER 05/20/2018 1:50 AM OFFICE ASST [employer] LABORATORY SERVICES [facility] Whole blood specimen (specimen) 05/20/2018 1:37 AM OFFICE ASST 05/20/2018 1:50 AM OFFICE ASST Manan Dumont MD POINT OF CARE TEST ING Performing Organization Address [facility] de Phone Number [facility] [employer] [facility]# [id number] [address] [place] [address] * (ABNORMAL) POC GLUCOSE (05/19/2018 8:27 PM OFFICE ASST) GLUCOSE POC 144(H) 74 - 99 mg/dL 05/19/2018 8:43 PM OFFICE ASST [employer] LABORATORY SERVICES [facility] COMMENT, GLU POC Notified RN/ 05/19/2018 8:43 PM OFFICE ASST [employer] LABORATORY SERVICES [facility] USABILITY ENGINEER NAME POC SREE WALKER 05/19/2018 8:43 PM OFFICE ASST [employer] LABORATORY SERVICES [facility] Whole blood specimen (specimen) 05/19/2018 8:27 PM OFFICE ASST 05/19/2018 8:43 PM OFFICE ASST Manan Dumont MD POINT OF CARE TEST ING Performing Organization Address [facility] Co de Phone Number [facility] [employer] [facility]# [id number] [address] [place] [address] * (ABNORMAL) TRIGLYCERIDE (05/19/2018 6:23 PM OFFICE ASST) TRIGLYCERIDE 279(H) <150 mg/dL 05/19/2018 7:11 PM OFFICE ASST [facility] LABORATORY [facility] Blood Venipuncture / Unknown 05/19/2018 6:23 PM OFFICE ASST 05/19/2018 6:28 PM OFFICE ASST Narrative [facility] LABORATORY [facility] - 05/19/2018 7:11 PM OFFICE ASST TRIGLYCERIDES ? mg/dL Normal ?< 150 Borderline High ?150 - 199 High ? 200 - 499 Very High ? >= 500 Based on AHA/NCEP Guidelines. Loki Vences MD CHEMISTRY ORDERABLES Performing Organization Address [facility] Co de Phone Number [facility] [employer] [facility]# [id number] [address] [place] [address] * (ABNORMAL) POC GLUCOSE (05/19/2018 4:07 PM OFFICE ASST) GLUCOSE POC 125(H) 74 - 99 mg/dL 05/19/2018 4:19 PM OFFICE ASST [facility] LABORATORY [facility] COMMENT, GLU POC Notified RN/MD 05/19/2018 4:19 PM OFFICE ASST [facility] LABORATORY SERVICES [facility] USABILITY ENGINEER NAME POC MICHAEL FUNGPAL 05/19/2018 4:19 PM OFFICE ASST [facility] LABORATORY [facility] Whole blood specimen (specimen) 05/19/2018 4:07 PM OFFICE ASST 05/19/2018 4:19 PM OFFICE ASST Manan Dumont MD POINT OF CARE TEST ING Performing Organization Address [facility]/ZIP Co de Phone Number [facility] [id number] [address] [place] [address] * EKG 12-LEAD (05/19/2018 2:29 PM OFFICE ASST) 05/19/2018 2:29 PM OFFICE ASST Narrative INTERFACE SYSTEM - 05/20/2018 9:10 AM OFFICE ASST ? Stationary ECG Study ? [facility] ? Test Date: ?05/19/2018 2:29 PM Pat Name: ? CASANDRA DOSS ?Department: ?? 6 ?Room: ? 6311 Gender: ? F ?Therapeutic Mentor: ?? geoff : ?1975 ? Requested By: EVA FOREMAN Order Number: [id number] ?Reading MD: ?? Percy Alaniz ? Measurements Intervals ?[place] ? Rate: ? 76 ? P: ?34 OK: ? 164 ?QRS: ?24 QRSD: ? 84 ? T: ?-5 QT: ? 374 ? QTc: ?423 ? Interpretive Statements ? SINUS RHYTHM LOW QRS VOLTAGE IN PRECORDIAL LEADS Electronically Signed On 05-20-2018 9:10:48 OFFICE ASST by Percy Alaniz Procedure Note Percy Alaniz MD - 06/15/2021 Stationary ECG Study [facility] Test Date: 05/19/2018 2:29 PM Pat Name: CASANDRA DOSS Department: 6 Room: 6311 Gender: F Therapeutic Mentor: geoff : 1975 Requested By: EVA FOREMAN Order Number: [id number] [place] MD: Percy Alaniz Measurements Intervals [place] Rate: 76 P: 34 OK: 164 QRS: 24 QRSD: 84 T: -5 QT: 374 QTc: 423 Interpretive Statements SINUS RHYTHM LOW QRS VOLTAGE IN PRECORDIAL LEADS Electronically Signed On 05-20-2018 9:10:48 OFFICE ASST by Percy Alaniz Manan Dumont MD ECG ORDERABLES INTERFACE SYSTEM Refer to clinic/hospital department * (ABNORMAL) POC GLUCOSE (05/19/2018 11:55 AM OFFICE ASST) GLUCOSE POC 114(H) 74 - 99 mg/dL 05/19/2018 12:08 PM OFFICE ASST [employer] LABORATORY SERVICES - [facility] COMMENT, GLU POC Notified RN/MD 05/19/2018 12:08 PM OFFICE ASST [employer] LABORATORY SERVICES - [facility] USABILITY ENGINEER NAME POC JAYRO FUNG 05/19/2018 12:08 PM OFFICE ASST [employer] LAB[facility]ATORY SERVICES - [facility] Whole blood specimen (specimen) 05/19/2018 11:55 AM OFFICE ASST 05/19/2018 12:08 PM OFFICE ASST Manan Dumont MD POINT OF CARE TEST ING Performing Organization Address City/[facility]/ZIP Co de Phone Number [facility] [employer] [facility] CLIA# [id number] [address] [place] [address] * (ABNORMAL) POC GLUCOSE (05/19/2018 7:58 AM OFFICE ASST) GLUCOSE POC 164(H) 74 - 99 mg/dL 05/19/2018 8:11 AM OFFICE ASST [employer] LABORATORY SERVICES - [facility] USABILITY ENGINEER NAME POC LYNNETTE DELACRUZ 05/19/2018 8:11 AM [facility] [employer] LABORATORY SERVICES - [facility] Whole blood specimen (specimen) 05/19/2018 7:58 AM OFFICE ASST 05/19/2018 8:11 AM OFFICE ASST Manan Dumont MD POINT OF CARE TEST ING Performing Organization Address City/[facility]/ZIP Co de Phone Number [facility] [employer] [facility] CLIA# [id number] [address] [place] [address] * (ABNORMAL) COMPREHENSIVE METABOLIC PANEL (05/19/2018 5:37 AM OFFICE ASST) SODIUM 144 136 - 145 mmol/L 05/19/2018 6:21 AM [facility] [employer] LABORATORY SERVICES [facility] POTASSIUM 3.9 3.5 - 5.0 mmol/L 05/19/2018 6:21 AM OFFICE ASST [employer] LABORATORY SERVICES [facility] CHLORIDE 105 98 - 107 mmol/L 05/19/2018 6:21 AM [employer] SERVICES - [facility] CO2 25 22 - 29 mmol/L 05/19/2018 6:21 AM OFFICE ASST [employer] SERVICES - [facility] CALCIUM 9.1 8.6 - 10.2 mg/dL 05/19/2018 6:21 AM [facility] [employer] SERVICES - . [place] BUN 2(L) 6 - 20 mg/dL 05/19/2018 6:21 AM OFFICE ASST [employer] SERVICES - . [place] CREATININE 0.51 0.51 - 0.95 mg/dL 05/19/2018 6:21 AM [employer] SERVICES - [facility] GLUCOSE 167(H) 74 - 99 mg/dL 05/19/2018 6:21 AM OFFICE ASST [employer] - . [place] TOTAL PROTEIN 5.2(L) 6.7 - 8.6 g/dL 05/19/2018 6:21 AM [facility] - . [place] ALBUMIN 4.0 3.5 - 5.2 g/dL 05/19/2018 6:21 AM [facility] - . [place] BILIRUBIN TOTAL 0.4 0.3 - 1.2 mg/dL 05/19/2018 6:21 AM [facility] - . [place] ALKALINE PHOSPHATASE 24(L) 35 - 104 U/L 05/19/2018 6:21 AM [employer] [facility] - . [place] AST 13 <33 U/L 05/19/2018 6:21 AM [facility] - . [place] ALT 10 <34 U/L 05/19/2018 6:21 AM [employer] [facility] - . [facility] GFR >60 >=60 mL/min/1.7 3 sq meter 05/19/2018 6:21 AM [employer] SERVICES - . [facility] Comment: eGFR has [...] GFR, >60 >=60 mL/min/1.7 3 sq meter 05/19/2018 6:21 AM [facility] [employer] [facility] ANION GAP 14 8 - 16 mmol/L 05/19/2018 6:21 AM [facility] [employer] [facility] Blood Venipuncture / Unknown 05/19/2018 5:37 AM OFFICE ASST 05/19/2018 5:47 AM [facility] [employer] LABORATORY SERVICES - [facility] - 05/19/2018 6:21 AM OFFICE ASST Samples containing indocyanine green cause interferences on Total and/or Direct Bilirubin and must not be measured. Loki Vences MD CHEMISTRY ORDERABLES [facility] [employer] [facility] CLIA# [id number] [address] [facility] [place] [place] [address] * (ABNORMAL) CBC WITH DIFFERENTIAL (05/19/2018 5:37 AM OFFICE ASST) WBC 6.4 4.0 - 9.8 K/uL 05/19/2018 5:54 AM [facility] [employer] SERVICES [facility] RBC 3.44(L) 3.90 - 4.90 M/uL 05/19/2018 5:54 AM [facility] [employer] [employer] [facility] HEMOGLOBIN 10.5(L) 11.8 - 14.8 g/dL 05/19/2018 5:54 AM [facility] [employer] [facility] HEMATOCRIT 31.9(L) 35.5 - 44.0 % 05/19/2018 5:54 AM [facility] [employer] [facility] MCV 92.7 82.0 - 99.0 fL 05/19/2018 5:54 AM [facility] [employer] [facility] MCH 30.5 27.2 - 32.6 pg 05/19/2018 5:54 AM [facility] [employer] [facility] MCHC 32.9 31.5 - 35.5 g/dL 05/19/2018 5:54 AM [facility] [employer] [facility] RDW 14.3 11.5 - 14.5 % 05/19/2018 5:54 AM [facility] [employer] [facility] RDW-STDEV 49.1(H) 37.1 - 48.7 fL 05/19/2018 5:54 AM [facility] [employer] [facility] PLATELETS 163 140 - 350 K/uL 05/19/2018 5:54 AM [facility] [employer] [facility] MPV 9.5 9.3 - 12.4 fL 05/19/2018 5:54 AM [facility] [employer] [facility] NEUTROPHILS 63 % 05/19/2018 5:54 AM [facility] [employer] [facility] LYMPHOCYTES 29 % 05/19/2018 5:54 AM [facility] [employer] [facility] MONOCYTES 6 % 05/19/2018 5:54 AM OFFICE ASST [employer] [facility] EOSINOPHILS 1 % 05/19/2018 5:54 AM OFFICE ASST [employer] [facility] BASOPHILS 0 % 05/19/2018 5:54 AM [facility] [employer] [facility] IMMATURE GRANULOCYTES 1 % 05/19/2018 5:54 AM [facility] [employer] [facility] Comment:IG (Immature Granulo cyte) count includes Metamyelocytes, Myelocytes, and Promyelocytes NEUTROPHIL ABSOLUTE 3.99 1.90 - 7.00 K/uL 05/19/2018 5:54 AM [facility] [employer] [facility] LYMPHOCYTE ABSOLUTE 1.82 0.70 - 4.50 K/uL 05/19/2018 5:54 AM [facility] [employer] [facility]ORY [facility] MONOCYTE ABSOLUTE 0.39 0.10 - 1.30 K/uL 05/19/2018 5:54 AM [facility] [employer] LABORATORY [employer] [facility] EOSINOPHIL ABSOLUTE 0.08 0.00 - 0.70 K/uL 05/19/2018 5:54 AM OFFICE ASST [employer] SERVICES - [facility] BASOPHILS ABSOLUTE 0.02 0.00 - 0.20 K/uL 05/19/2018 5:54 AM [employer] LABORATORY SERVICES [facility] IMMATURE GRANULOCYTES ABSOLUTE 0.05(H) 0.00 - 0.03 K/uL 05/19/2018 5:54 AM [facility] [employer] [facility] Blood Venipuncture / Unknown 05/19/2018 5:37 AM OFFICE ASST 05/19/2018 5:47 AM OFFICE ASST Loki Vences MD HEMATOLOGY ORDERABLE S Performing Organization Address [facility]/ZIP Co de Phone Number [facility] [employer] [facility]# [id number] [address] [place] [address] * (ABNORMAL) TRIGLYCERIDE (05/19/2018 5:37 AM OFFICE ASST) TRIGLYCERIDE 553(H) <150 mg/dL 05/19/2018 6:21 AM OFFICE ASST [facility] [employer] [facility] Blood Venipuncture / Unknown 05/19/2018 5:37 AM OFFICE ASST 05/19/2018 5:47 AM OFFICE ASST Narrative [facility] [employer] [facility] - 05/19/2018 6:21 AM OFFICE ASST TRIGLYCERIDES ? mg/dL Normal ?< 150 Borderline High ?150 - 199 High ? 200 - 499 Very High ? >= 500 Based on AHA/NCEP Guidelines. Loki Vences MD CHEMISTRY ORDERABLES Performing Organization Address [facility] Co de Phone Number [facility] [employer] [facility]# [id number] [address] [place] [address] * (ABNORMAL) POC GLUCOSE (05/19/2018 3:53 AM OFFICE ASST) GLUCOSE POC 133(H) 74 - 99 mg/dL 05/19/2018 4:09 AM OFFICE ASST [facility] [employer] [facility] USABILITY ENGINEER NAME POC TANKER SERVICEMAN, VICTORIANO 05/19/2018 4:09 AM [facility] Whole blood specimen (specimen) 05/19/2018 3:53 AM OFFICE ASST 05/19/2018 4:09 AM OFFICE ASST Manan Dumont MD POINT OF CARE TEST ING Performing Organization Address [facility]/ZIP Co de Phone Number [facility] [id number] [address] [place] [address] * (ABNORMAL) POC GLUCOSE (05/18/2018 11:55 PM OFFICE ASST) GLUCOSE POC 133(H) 74 - 99 mg/dL 05/19/2018 12:07 AM OFFICE ASST [facility] LABORATORY SERVICES [facility] USABILITY ENGINEER NAME POC TANKER SERVICEMAN VICTORIANO 05/19/2018 12:07 AM OFFICE ASST [facility] LABORATORY SERVICES [facility] Whole blood specimen (specimen) 05/18/2018 11:55 PM OFFICE ASST 05/19/2018 12:07 AM OFFICE ASST Manan Dumont MD POINT OF CARE TEST ING [facility] [employer] [facility] CLIA# [id number] [address] [place] [address] * (ABNORMAL) POC GLUCOSE (05/18/2018 8:00 PM OFFICE ASST) GLUCOSE POC 152(H) 74 - 99 mg/dL 05/18/2018 8:16 PM OFFICE ASST [facility] LABORATORY [facility] USABILITY ENGINEER NAME POC TANKER SERVICEMAN BOURG 05/18/2018 8:16 PM [facility]ICE ASST [facility] Whole blood specimen (specimen) 05/18/2018 8:00 PM OFFICE ASST 05/18/2018 8:16 PM OFFICE ASST Manan Dumont MD POINT OF CARE TEST ING [facility] [employer] [facility] CLIA# [id number] [address] [place] [address] * (ABNORMAL) TRIGLYCERIDE (05/18/2018 5:30 PM OFFICE ASST) TRIGLYCERIDE 524(H) <150 mg/dL 05/18/2018 5:59 PM OFFICE ASST [facility] LABORATORY SERVICES [facility] Blood Venipuncture / Unknown 05/18/2018 5:30 PM OFFICE ASST 05/18/2018 5:33 PM OFFICE ASST Narrative [facility] - 05/18/2018 5:59 PM OFFICE ASST TRIGLYCERIDES ? mg/dL Normal ?< 150 Borderline High ?150 - 199 High ? 200 - 499 Very High ? >= 500 Based on AHA/NCEP Guidelines. Loki Vences MD CHEMISTRY ORDERABLES Performing Organization Address [facility] de Phone Number [facility]# [id number] [address] [place] [address] * (ABNORMAL) POC GLUCOSE (05/18/2018 2:01 PM OFFICE ASST) GLUCOSE POC 158(H) 74 - 99 mg/dL 05/18/2018 2:13 PM OFFICE ASST [facility] USABILITY ENGINEER NAME POC NINA BARBER 05/18/2018 2:13 PM OFFICE ASST [facility] [employer] [facility] Whole blood specimen (specimen) 05/18/2018 2:01 PM OFFICE ASST 05/18/2018 2:13 PM OFFICE ASST Manan Dumont MD POINT OF CARE TEST ING Performing Organization Address [facility] Phone Number [facility]# [id number] [address] [place] [address] * (ABNORMAL) POC GLUCOSE (05/18/2018 12:14 PM OFFICE ASST) GLUCOSE POC 132(H) 74 - 99 mg/dL 05/18/2018 12:31 PM OFFICE ASST [facility] USABILITY ENGINEER NAME POC RICKI EDUARDO 05/18/2018 12:31 PM OFFICE ASST [facility] [employer] [facility] Whole blood specimen (specimen) 05/18/2018 12:14 PM OFFICE ASST 05/18/2018 12:31 PM OFFICE ASST Manan Dumont MD POINT OF CARE TEST ING Performing Organization Address [facility]/ZIP Co de Phone Number [facility] [employer] [facility]# [id number] [address] [place] [address] * (ABNORMAL) POC GLUCOSE (05/18/2018 10:35 AM OFFICE ASST) GLUCOSE POC 132(H) 74 - 99 mg/dL 05/18/2018 10:49 AM OFFICE ASST [employer] LABORATORY SERVICES [facility] USABILITY ENGINEER NAME POC RICKI EDUARDO 05/18/2018 10:49 AM OFFICE ASST [employer] LABORATORY SERVICES [facility] Whole blood specimen (specimen) 05/18/2018 10:35 AM OFFICE ASST 05/18/2018 10:49 AM OFFICE ASST Manan Dumont MD POINT OF CARE TEST ING Performing Organization Address [facility] Co de Phone Number [employer] [facility]# [id number] [address] [place] [address] * PROTIME-INR (05/18/2018 9:14 AM OFFICE ASST) PROTIME 13.8 12.7 - 15.1 Seconds 05/18/2018 9:45 AM OFFICE ASST [employer] LABORATORY [facility] INR 1.1 0.9 - 1.1 05/18/2018 9:45 AM [facility] [employer] [facility] Blood Venipuncture / Unknown 05/18/2018 9:14 AM OFFICE ASST 05/18/2018 9:20 AM OFFICE ASST Narrative [employer] LABORATORY SERVICES - [facility] - 05/18/2018 9:45 AM OFFICE ASST INR Therapeutic Range: Adult: ?? 2.0 - 3.0 for pulmonary embolism or prophylaxis against venous ?thrombosis or systemic embolization. 2.0 - 3.0 for patients with tissue heart valves. 2.5 - 3.5 for patients with mechanical heart valves or post SC. Pediatric ??(12 years and under): 1.5 - 3.0 Although the target range in children is not well established, ?INR values of 1.5 - 3.0 are recommended for most patients. ?Higher values have been used in children with prosthetic ?cardiac valves and hereditary clotting disorders. (<3 days) therapeutic ranges have not been established. Manan Dumont MD HEMATOLOGY ORDERAB LES Performing Organization Address [facility] de Phone Number [facility]# [id number] [address] [place] [address] * (ABNORMAL) POC GLUCOSE (05/18/2018 9:04 AM OFFICE ASST) GLUCOSE POC 142(H) 74 - 99 mg/dL 05/18/2018 9:27 AM OFFICE ASST [facility] LABORATORY [facility] USABILITY ENGINEER NAME OLLIE RICKI EDUARDO 05/18/2018 9:27 AM OFFICE ASST [facility] LABORATORY [facility] Whole blood specimen (specimen) 05/18/2018 9:04 AM OFFICE ASST 05/18/2018 9:27 AM OFFICE ASST Manan Dumont MD POINT OF CARE TEST ING Performing Organization Address [facility] de Phone Number [facility] [employer] [facility]# [id number] [address] [place] [address] * (ABNORMAL) POC GLUCOSE (05/18/2018 8:12 AM OFFICE ASST) GLUCOSE POC 148(H) 74 - 99 mg/dL 05/18/2018 8:25 AM OFFICE ASST [facility] LABORATORY [facility] USABILITY ENGINEER NAME OLLIE RICKI EDUARDO 05/18/2018 8:25 AM [facility]ICE [facility]ST [facility] Whole blood specimen (specimen) 05/18/2018 8:12 AM OFFICE ASST 05/18/2018 8:25 AM OFFICE ASST Manan Dumont MD POINT OF CARE TEST ING [employer] [facility] CLIA# [id number] [address] [place] [address] * (ABNORMAL) COMPREHENSIVE METABOLIC PANEL (05/18/2018 6:03 AM OFFICE ASST) SODIUM 139 136 - 145 mmol/L 05/18/2018 7:07 AM [facility] [employer] [facility]ATORY [facility] POTASSIUM 4.3 3.5 - 5.0 mmol/L 05/18/2018 7:07 AM [facility] [employer] SERVICES - [facility] CHLORIDE 103 98 - 107 mmol/L 05/18/2018 7:07 AM [facility] [employer] [facility] CO2 23 22 - 29 mmol/L 05/18/2018 7:07 AM [facility] [employer] SERVICES - [facility] CALCIUM 9.1 8.6 - 10.2 mg/dL 05/18/2018 7:07 AM [facility] [employer] SERVICES - [facility] BUN 3(L) 6 - 20 mg/dL 05/18/2018 7:07 AM [facility] [employer] SERVICES - [facility] CREATININE 0.53 0.51 - 0.95 mg/dL 05/18/2018 7:07 AM [facility] [employer] [facility]ORY [facility] GLUCOSE 159(H) 74 - 99 mg/dL 05/18/2018 7:07 AM [facility] [employer] [facility]ORY [facility] TOTAL PROTEIN 5.5(L) 6.7 - 8.6 g/dL 05/18/2018 7:07 AM [facility] [employer] [facility]ORY [facility] ALBUMIN 3.9 3.5 - 5.2 g/dL 05/18/2018 7:07 AM [facility] [employer] [facility]ORY [facility] BILIRUBIN TOTAL 0.3 0.3 - 1.2 mg/dL 05/18/2018 7:07 AM [facility] [employer] [facility]ATORY [facility] ALKALINE PHOSPHATASE 33(L) 35 - 104 U/L 05/18/2018 7:07 AM [facility] [employer] [facility] AST 13 <33 U/L 05/18/2018 7:07 AM OFFICE ASST [employer] [facility] ALT 10 <34 U/L 05/18/2018 7:07 AM [facility] [employer] [facility] GFR >60 >=60 mL/min/1.7 3 sq meter 05/18/2018 7:07 AM [facility] [employer] [facility] Comment: eGFR has not been validated [...] GFR, >60 >=60 mL/min/1.7 3 sq meter 05/18/2018 7:07 AM [facility] [employer] [facility] ANION GAP 13 8 - 16 mmol/L 05/18/2018 7:07 AM [facility] [employer] [facility] Blood Venipuncture / Unknown 05/18/2018 6:03 AM [facility] 05/18/2018 6:11 AM [facility] [employer] [facility] - 05/18/2018 7:07 AM [facility] Samples containing indocyanine green cause interferences on Total and/or Direct Bilirubin and must not be measured. Loki Vences MD CHEMISTRY ORDERABLES [facility] [employer] [facility]# [id number] [address] [place] [address] * (ABNORMAL) CBC WITH DIFFERENTIAL (05/18/2018 6:03 AM OFFICE ASST) Pathologist [facility] WBC 8.8 4.0 - 9.8 K/uL 05/18/2018 6:19 AM [facility] [employer] [facility] RBC 3.59(L) 3.90 - 4.90 M/uL 05/18/2018 6:19 AM [facility] [employer] [facility] HEMOGLOBIN 10.8(L) 11.8 - 14.8 g/dL 05/18/2018 6:19 AM [facility] [employer] [facility] HEMATOCRIT 33.7(L) 35.5 - 44.0 % 05/18/2018 6:19 AM [employer] LABORATORY SERVICES - [facility] MCV 93.9 82.0 - 99.0 fL 05/18/2018 6:19 AM [facility] [employer] LABORATORY SERVICES - [facility] MCH 30.1 27.2 - 32.6 pg 05/18/2018 6:19 AM [facility] [employer] [facility]ATORY SERVICES [facility] MCHC 32.0 31.5 - 35.5 g/dL 05/18/2018 6:19 AM [facility] [employer] [facility]ATORY [facility] RDW 14.3 11.5 - 14.5 % 05/18/2018 6:19 AM OFFICE ASST [employer] [facility]ATORY [facility] RDW-STDEV 49.7(H) 37.1 - 48.7 fL 05/18/2018 6:19 AM OFFICE ASST [employer] [facility]ATORY [facility] PLATELETS 186 140 - 350 K/uL 05/18/2018 6:19 AM [facility] [employer] [facility]ORY [facility] MPV 9.1(L) 9.3 - 12.4 fL 05/18/2018 6:19 AM OFFICE ASST [employer] [facility] NEUTROPHILS 68 % 05/18/2018 6:19 AM OFFICE ASST [employer] [facility]ORY [facility] LYMPHOCYTES 24 % 05/18/2018 6:19 AM [employer] [facility]ATORY [facility] MONOCYTES 6 % 05/18/2018 6:19 AM [employer] [facility]ATORY [facility] EOSINOPHILS 1 % 05/18/2018 6:19 AM OFFICE ASST [employer] [facility]ORY [facility] BASOPHILS 0 % 05/18/2018 6:19 AM OFFICE ASST [employer] [facility]ORY [facility] IMMATURE GRANULOCYTES 1 % 05/18/2018 6:19 AM OFFICE ASST [employer] [facility] Comment:IG (Immature Granulo cyte) count includes Metamyelocytes, Myelocytes, and Promyelocytes NEUTROPHIL ABSOLUTE 6.04 1.90 - 7.00 K/uL 05/18/2018 6:19 AM OFFICE ASST [employer] [facility]ATORY [facility] LYMPHOCYTE ABSOLUTE 2.15 0.70 - 4.50 K/uL 05/18/2018 6:19 AM [facility] [employer] LAB[facility]ATORY SERVICES [facility] MONOCYTE ABSOLUTE 0.51 0.10 - 1.30 K/uL 05/18/2018 6:19 AM OFFICE ASST [employer] [facility]ATORY [facility] EOSINOPHIL ABSOLUTE 0.05 0.00 - 0.70 K/uL 05/18/2018 6:19 AM [facility] LABORATORY [facility] BASOPHILS ABSOLUTE 0.02 0.00 - 0.20 K/uL 05/18/2018 6:19 AM [facility] LABORATORY [facility] IMMATURE GRANULOCYTES ABSOLUTE 0.07(H) 0.00 - 0.03 K/uL 05/18/2018 6:19 AM [facility] [employer] [facility] Blood Venipuncture / Unknown 05/18/2018 6:03 AM OFFICE ASST 05/18/2018 6:11 AM OFFICE ASST Loki Vences MD HEMATOLOGY ORDERABLE S Performing Organization Address [facility] Co de Phone Number [facility]# [id number] [address] [place] [address] * (ABNORMAL) TRIGLYCERIDE (05/18/2018 6:03 AM OFFICE ASST) TRIGLYCERIDE 955(H) <150 mg/dL 05/18/2018 7:21 AM [facility] [employer] [facility] Blood Venipuncture / Unknown 05/18/2018 6:03 AM [facility] 05/18/2018 6:11 AM OFFICE ASST Narrative [facility] [employer] [facility] - 05/18/2018 7:21 AM OFFICE ASST TRIGLYCERIDES ? mg/dL Normal ?< 150 Borderline High ?150 - 199 High ? 200 - 499 Very High ? >= 500 Based on AHA/NCEP Guidelines. Loki Vences MD CHEMISTRY ORDERABLES Performing Organization Address [facility] Co de Phone Number [facility]# [id number] [address] [place] [address] * (ABNORMAL) POC GLUCOSE (05/18/2018 5:09 AM OFFICE ASST) GLUCOSE POC 160(H) 74 - 99 mg/dL 05/18/2018 5:21 AM OFFICE ASST [facility] LABORATORY [facility] USABILITY ENGINEER NAME KENIA LYON 05/18/2018 5:21 AM OFFICE ASST [facility] LABORATORY [facility] Whole blood specimen (specimen) 05/18/2018 5:09 AM OFFICE ASST 05/18/2018 5:21 AM OFFICE ASST Manan Dumont MD POINT OF CARE TEST ING Performing Organization Address [facility] Co de Phone Number [facility] CLIA# [id number] [address], [place] [address] * (ABNORMAL) POC GLUCOSE (05/18/2018 4:04 AM OFFICE ASST) GLUCOSE POC 179(H) 74 - 99 mg/dL 05/18/2018 4:17 AM [facility]ST [facility] USABILITY ENGINEER NAME KENIA LYON 05/18/2018 4:17 AM OFFICE ASST [employer] LABORATORY SERVICES [facility] Whole blood specimen (specimen) 05/18/2018 4:04 AM OFFICE ASST 05/18/2018 4:17 AM OFFICE ASST Manan Dumont MD POINT OF CARE TEST ING Performing Organization Address [facility] Co de Phone Number [facility] [employer] [facility] CLIA# [id number] [address] [place] [address] * (ABNORMAL) POC GLUCOSE (05/18/2018 3:04 AM OFFICE ASST) GLUCOSE POC 168(H) 74 - 99 mg/dL 05/18/2018 3:20 AM [facility]ICE ASST [facility] USABILITY ENGINEER NAME KENIA LYON 05/18/2018 3:20 AM OFFICE ASST [employer] LABORATORY [facility] Whole blood specimen (specimen) 05/18/2018 3:04 AM OFFICE ASST 05/18/2018 3:20 AM OFFICE ASST Manan Dumont MD POINT OF CARE TEST ING Performing Organization Address [facility]/ZIP Co de Phone Number [facility] [id number] [address] [place] [address] * (ABNORMAL) POC GLUCOSE (05/18/2018 2:06 AM OFFICE ASST) GLUCOSE POC 148(H) 74 - 99 mg/dL 05/18/2018 2:18 AM OFFICE ASST [facility] LABORATORY [facility] USABILITY ENGINEER NAME KENIA LYON 05/18/2018 2:18 AM OFFICE ASST [facility] Whole blood specimen (specimen) 05/18/2018 2:06 AM OFFICE ASST 05/18/2018 2:18 AM OFFICE ASST Manan Dumont MD POINT OF CARE TEST ING Performing Organization Address [facility] Co de Phone Number [facility] [employer] [facility] CLIA# [id number] [address] [place] [address] * (ABNORMAL) POC GLUCOSE (05/18/2018 1:05 AM OFFICE ASST) GLUCOSE POC 150(H) 74 - 99 mg/dL 05/18/2018 1:18 AM OFFICE ASST [facility] LABORATORY [facility] USABILITY ENGINEER NAME KENIA LYON 05/18/2018 1:18 AM OFFICE ASST [facility] Whole blood specimen (specimen) 05/18/2018 1:05 AM OFFICE ASST 05/18/2018 1:18 AM OFFICE ASST Manan Dumont MD POINT OF CARE TEST ING Performing Organization Address [facility]/ZIP Co de Phone Number [facility] [employer] [facility] CLIA# [id number] [address] [place] [address] * (ABNORMAL) POC GLUCOSE (05/18/2018 12:01 AM OFFICE ASST) GLUCOSE POC 138(H) 74 - 99 mg/dL 05/18/2018 12:17 AM OFFICE ASST [facility] LABORATORY [facility] USABILITY ENGINEER NAME KENIA LYON 05/18/2018 12:17 AM OFFICE ASST [facility] LABORATORY [facility] Whole blood specimen (specimen) 05/18/2018 12:01 AM OFFICE ASST 05/18/2018 12:17 AM OFFICE ASST Manan Dumont MD POINT OF CARE TEST ING Performing Organization Address [facility]/ZIP Co de Phone Number [facility] [id number] [address] [place] [address] * (ABNORMAL) POC GLUCOSE (05/17/2018 11:05 PM OFFICE ASST) GLUCOSE POC 137(H) 74 - 99 mg/dL 05/17/2018 11:21 PM OFFICE ASST [facility] USABILITY ENGINEER NAME KENIA LYON 05/17/2018 11:21 PM [facility] Whole blood specimen (specimen) 05/17/2018 11:05 PM OFFICE ASST 05/17/2018 11:21 PM OFFICE ASST Manan Dumont MD POINT OF CARE TEST ING Performing Organization Address [facility] Co de Phone Number [facility] [employer] CLIA# [id number] [address] [place] [address] * (ABNORMAL) POC GLUCOSE (05/17/2018 10:04 PM OFFICE ASST) GLUCOSE POC 153(H) 74 - 99 mg/dL 05/17/2018 10:20 PM [facility] USABILITY ENGINEER NAME KENIA LYON 05/17/2018 10:20 PM [facility] Whole blood specimen (specimen) 05/17/2018 10:04 PM OFFICE ASST 05/17/2018 10:20 PM OFFICE ASST Manan Dumont MD POINT OF CARE TEST ING Performing Organization Address [facility]/ZIP Co de Phone Number [facility]# [id number] [address] [place] [address] * (ABNORMAL) POC GLUCOSE (05/17/2018 9:01 PM OFFICE ASST) GLUCOSE POC 164(H) 74 - 99 mg/dL 05/17/2018 9:12 PM [facility]ICE [facility]ST [facility] HOSPITAL LABORATORY [facility] USABILITY ENGINEER NAME KENIA LYON 05/17/2018 9:12 PM [facility]ICE [facility] Whole blood specimen (specimen) 05/17/2018 9:01 PM OFFICE ASST 05/17/2018 9:12 PM OFFICE ASST Manan Dumont MD POINT OF CARE TEST ING Performing Organization Address [facility] Co de Phone Number [facility] [employer] [facility]# [id number] [address] [place] [address] * (ABNORMAL) POC GLUCOSE (05/17/2018 8:03 PM OFFICE ASST) GLUCOSE POC 157(H) 74 - 99 mg/dL 05/17/2018 8:15 PM OFFICE ASST [facility] LABORATORY [facility] USABILITY ENGINEER NAME KENIA LYON 05/17/2018 8:15 PM [facility]ICE [facility] Whole blood specimen (specimen) 05/17/2018 8:03 PM OFFICE ASST 05/17/2018 8:15 PM OFFICE ASST Manan Dumont MD POINT OF CARE TEST ING Performing Organization Address [facility]/ZIP Co de Phone Number [facility] [employer] [facility]# [id number] [address] [place] [address] * (ABNORMAL) POC GLUCOSE (05/17/2018 7:04 PM OFFICE ASST) GLUCOSE POC 142(H) 74 - 99 mg/dL 05/17/2018 7:19 PM OFFICE ASST [employer] LABORATORY [facility] USABILITY ENGINEER NAME POC KENIA QUIROZ 05/17/2018 7:19 PM OFFICE ASST [facility] LABORATORY [facility] Whole blood specimen (specimen) 05/17/2018 7:04 PM OFFICE ASST 05/17/2018 7:19 PM OFFICE ASST Manan Dumont MD POINT OF CARE TEST ING Performing Organization Address [facility] Co de Phone Number [facility]# [id number] [address] [place] [address] * (ABNORMAL) POC GLUCOSE (05/17/2018 6:07 PM OFFICE ASST) GLUCOSE POC 131(H) 74 - 99 mg/dL 05/17/2018 6:19 PM OFFICE ASST [facility] LABORATORY [facility] USABILITY ENGINEER NAME POC NINA BARBER 05/17/2018 6:19 PM OFFICE ASST [facility] LABORATORY [facility] Whole blood specimen (specimen) 05/17/2018 6:07 PM OFFICE ASST 05/17/2018 6:19 PM OFFICE ASST Manan Dumont MD POINT OF CARE TEST ING Performing Organization Address [facility] Co de Phone Number [facility] [employer] [facility]# [id number] [address] [place] [address] * (ABNORMAL) TRIGLYCERIDE (05/17/2018 4:46 PM OFFICE ASST) TRIGLYCERIDE 939(H) <150 mg/dL 05/17/2018 5:36 PM OFFICE ASST [facility] LABORATORY [facility] Blood Venipuncture / Unknown 05/17/2018 4:46 PM OFFICE ASST 05/17/2018 4:51 PM OFFICE ASST Narrative [facility] LABORATORY [facility] - 05/17/2018 5:36 PM OFFICE ASST TRIGLYCERIDES ? mg/dL Normal ?< 150 Borderline High ?150 - 199 High ? 200 - 499 Very High ? >= 500 Based on AHA/NCEP Guidelines. Loki Vences MD CHEMISTRY ORDERABLES Performing Organization Address City/[facility]/ZIP Co de Phone Number [facility] LABORATORY [facility]# [id number] [address] [place] [address] * (ABNORMAL) POC GLUCOSE (05/17/2018 3:57 PM OFFICE ASST) GLUCOSE POC 114(H) 74 - 99 mg/dL 05/17/2018 4:09 PM OFFICE ASST [facility] LABORATORY SERVICES [facility] USABILITY ENGINEER NAME POC LOLY EAGLE 05/17/2018 4:09 PM [facility]ICE [facility]ST [facility] Whole blood specimen (specimen) 05/17/2018 3:57 PM OFFICE ASST 05/17/2018 4:09 PM OFFICE ASST Manan Dumont MD POINT OF CARE TEST ING Performing Organization Address [facility] Co de Phone Number [facility] [employer] [facility]# [id number] [address] [place] [address] * (ABNORMAL) POC GLUCOSE (05/17/2018 3:00 PM OFFICE ASST) GLUCOSE POC 116(H) 74 - 99 mg/dL 05/17/2018 3:13 PM OFFICE ASST [facility] LABORATORY [facility] USABILITY ENGINEER NAME POC ACE EDUARDOS 05/17/2018 3:13 PM [facility]ICE [facility]ST [facility] Whole blood specimen (specimen) 05/17/2018 3:00 PM OFFICE ASST 05/17/2018 3:13 PM OFFICE ASST Manan Dumont MD POINT OF CARE TEST ING Performing Organization Address [facility] Co de Phone Number [facility] LABORATORY [facility]# [id number] [address] [place] [address] * (ABNORMAL) POC GLUCOSE (05/17/2018 1:58 PM OFFICE ASST) GLUCOSE POC 107(H) 74 - 99 mg/dL 05/17/2018 2:12 PM OFFICE ASST [facility] LABORATORY [facility] USABILITY ENGINEER NAME RICKI SINGH 05/17/2018 2:12 PM OFFICE ASST [facility] LABORATORY SERVICES [facility] Whole blood specimen (specimen) 05/17/2018 1:58 PM OFFICE ASST 05/17/2018 2:12 PM OFFICE ASST Manan Dumont MD POINT OF CARE TEST ING Performing Organization Address [facility]/ZIP Co de Phone Number [facility] [employer] [facility]# [id number] [address] [place] [address] * (ABNORMAL) POC GLUCOSE (05/17/2018 12:52 PM OFFICE ASST) GLUCOSE POC 126(H) 74 - 99 mg/dL 05/17/2018 1:04 PM OFFICE ASST [facility] LABORATORY [facility] USABILITY ENGINEER NAME RICKI SINGH 05/17/2018 1:04 PM OFFICE ASST [facility] LABORATORY [facility] Whole blood specimen (specimen) 05/17/2018 12:52 PM OFFICE ASST 05/17/2018 1:04 PM OFFICE ASST Manan Dumont MD POINT OF CARE TEST ING Performing Organization Address [facility]/ZIP Co de Phone Number [facility] [employer] [facility]# [id number] [address] [place] [address] * XR CHEST PA OR AP 1 VW (05/17/2018 12:43 PM OFFICE ASST) Anatomical Region Laterality Modality Chest Computed Radiogr aphy 05/17/2018 12:4 3 PM OFFICE ASST Impressions 05/17/2018 1:03 PM OFFICE ASST IMPRESSION: 1. Right-sided internal jugular central venous catheter with distal tip projected over the cavoatrial junction/proximal right atrium. 2. No pneumothorax or acute cardiopulmonary pathology. 3. Hypoventilation with vascular crowding. DICTATION LOCATION: Location [address] [place] [address] Narrative 05/17/2018 1:03 PM OFFICE ASST AP VIEW OF THE CHEST ?? DATE: 05/17/2018 12:43 PM HISTORY: Line placement. COMPARISON: None. FINDINGS: A right sided internal jugular central venous catheter is seen, with distal tip projected over the cavoatrial junction/proximal right atrium. Mild apparent cardiomediastinal silhouette enlargement is likely related to AP semiupright technique. Minimal lateral subsegmental atelectasis at the left lung base. Hypoventilated lungs with vascular crowding. No focal airspace consolidation, pleural effusion or detectable pneumothorax. The visualized osseous structures are without acute abnormality. Procedure Note Mindi Brady, DO - 05/17/2018 AP VIEW OF THE CHEST DATE: 05/17/2018 12:43 PM HISTORY: Line placement. COMPARISON: None. FINDINGS: A right sided internal jugular central venous catheter is seen, with distal tip projected over the cavoatrial junction/proximal right atrium. Mild apparent cardiomediastinal silhouette enlargement is likely related to AP semiupright technique. Minimal lateral subsegmental atelectasis at the left lung base. Hypoventilated lungs with vascular crowding. No focal airspace consolidation, pleural effusion or detectable pneumothorax. The visualized osseous structures are without acute abnormality. IMPRESSION: 1. Right-sided internal jugular central venous catheter with distal tip projected over the cavoatrial junction/proximal right atrium. 2. No pneumothorax or acute cardiopulmonary pathology. 3. Hypoventilation with vascular crowding. DICTATION LOCATION: Location [address] [place] [address] Manan Dumont MD DIAGNOSTIC IMAGING ORDERABLES * (ABNORMAL) POC GLUCOSE (05/17/2018 11:43 AM OFFICE ASST) GLUCOSE POC 118(H) 74 - 99 mg/dL 05/17/2018 12:17 PM [facility] LABORATORY SERVICES [facility] USABILITY ENGINEER NAME POC RICKI EDUARDO 05/17/2018 12:17 PM [facility] LABORATORY [facility] Whole blood specimen (specimen) 05/17/2018 11:43 AM OFFICE ASST 05/17/2018 12:17 PM OFFICE ASST Manan Dumont MD POINT OF CARE TEST ING Performing Organization Address City/[facility]/ZIP Co de Phone Number [facility] [employer] [facility]# [id number] [address] [place] [address] * POC GLUCOSE (05/17/2018 10:47 AM OFFICE ASST) GLUCOSE POC 76 74 - 99 mg/dL 05/17/2018 12:17 PM OFFICE ASST [facility] LABORATORY SERVICES [facility] USABILITY ENGINEER NAME NINA LIEBERMAN 05/17/2018 12:17 PM OFFICE ASST [facility] LABORATORY SERVICES [facility] Whole blood specimen (specimen) 05/17/2018 10:47 AM OFFICE ASST 05/17/2018 12:17 PM OFFICE ASST Manan Dumont MD POINT OF CARE TEST ING Performing Organization Address [facility]/ZIP Co de Phone Number [facility] [employer]# [id number] [address] [place] [address] * (ABNORMAL) POC GLUCOSE (05/17/2018 10:26 AM OFFICE ASST) GLUCOSE POC 56(L) 74 - 99 mg/dL 05/17/2018 12:17 PM OFFICE ASST [facility] LABORATORY SERVICES [facility] COMMENT, GLU POC Notified RN/MD 05/17/2018 12:17 PM OFFICE ASST [facility] LABORATORY SERVICES [facility] USABILITY ENGINEER NAME POC NINA BARBER 05/17/2018 12:17 PM OFFICE ASST [facility] LABORATORY [facility] Whole blood specimen (specimen) 05/17/2018 10:26 AM OFFICE ASST 05/17/2018 12:17 PM OFFICE ASST Manan Dumont MD POINT OF CARE TEST ING Performing Organization Address [facility]/ZIP Co de Phone Number [facility]# [id number] [address] [place] [address] * POC GLUCOSE (05/17/2018 9:05 AM OFFICE ASST) GLUCOSE POC 91 74 - 99 mg/dL 05/17/2018 9:17 AM [facility] LABORATORY [facility] USABILITY ENGINEER NAME NINA LIEBERMAN 05/17/2018 9:17 AM OFFICE ASST [facility] LABORATORY SERVICES [facility] Whole blood specimen (specimen) 05/17/2018 9:05 AM OFFICE ASST 05/17/2018 9:17 AM OFFICE ASST Manan Dumont MD POINT OF CARE TEST ING Performing Organization Address [facility]/ZIP Co de Phone Number [facility] [employer] [facility] CLIA# [id number] [address] [place] [address] * (ABNORMAL) POC GLUCOSE (05/17/2018 7:52 AM OFFICE ASST) GLUCOSE POC 133(H) 74 - 99 mg/dL 05/17/2018 8:24 AM [facility] LABORATORY SERVICES [facility] USABILITY ENGINEER NAME NINA LIEBERMAN 05/17/2018 8:24 AM [facility] LABORATORY SERVICES [facility] Whole blood specimen (specimen) 05/17/2018 7:52 AM OFFICE ASST 05/17/2018 8:24 AM OFFICE ASST Loki Vences MD POINT OF CARE TESTIN G Performing Organization Address City/[facility]/ZIP Co de Phone Number [facility] LABORATORY [facility]# [id number] [address] [place] [address] * (ABNORMAL) POC GLUCOSE (05/17/2018 7:02 AM OFFICE ASST) GLUCOSE POC 133(H) 74 - 99 mg/dL 05/17/2018 7:21 AM OFFICE ASST [facility] LABORATORY SERVICES [facility] USABILITY ENGINEER NAME LIGIA BROOKS 05/17/2018 7:21 AM [facility]ST [facility] Whole blood specimen (specimen) 05/17/2018 7:02 AM OFFICE ASST 05/17/2018 7:21 AM OFFICE ASST Loki Vences MD POINT OF CARE TESTIN Maggie Performing Organization Address [facility]/ZIP Co de Phone Number [facility] [employer] [facility]# [id number] [address] [place] [address] * (ABNORMAL) POC GLUCOSE (05/17/2018 6:03 AM OFFICE ASST) GLUCOSE POC 118(H) 74 - 99 mg/dL 05/17/2018 6:16 AM OFFICE ASST [facility] LABORATORY [facility] USABILITY ENGINEER NAME LIGIA BROOKS 05/17/2018 6:16 AM [facility]ST [facility] Whole blood specimen (specimen) 05/17/2018 6:03 AM OFFICE ASST 05/17/2018 6:16 AM OFFICE ASST Loki Vences MD POINT OF CARE TESTJERONIMO Maggie Performing Organization Address [facility] Co de Phone Number [facility] [employer] [facility]# [id number] [address] [place] [address] * (ABNORMAL) POC GLUCOSE (05/17/2018 4:58 AM OFFICE ASST) GLUCOSE POC 108(H) 74 - 99 mg/dL 05/17/2018 5:18 AM OFFICE ASST [facility] LABORATORY [facility] USABILITY ENGINEER NAME LIGIA BROOKS 05/17/2018 5:18 AM [facility]ICE [facility]ST [facility] Whole blood specimen (specimen) 05/17/2018 4:58 AM OFFICE ASST 05/17/2018 5:18 AM OFFICE ASST Loki Vences MD POINT OF CARE TESTIN Maggie Performing Organization Address [facility]/ZIP Co de Phone Number [facility] [employer] [facility]# [id number] [address] [place] [address] * (ABNORMAL) POC GLUCOSE (05/17/2018 4:10 AM OFFICE ASST) GLUCOSE POC 113(H) 74 - 99 mg/dL 05/17/2018 4:29 AM OFFICE ASST [facility] LABORATORY [facility] USABILITY ENGINEER NAME POC LIGIA TREADWELL 05/17/2018 4:29 AM OFFICE ASST [facility] LABORATORY [facility] Whole blood specimen (specimen) 05/17/2018 4:10 AM OFFICE ASST 05/17/2018 4:29 AM OFFICE ASST Loki Vences MD POINT OF CARE TESTIN G Performing Organization Address [facility]/ZIP Co de Phone Number [facility] CLIA# [id number] [address] [place] [address] * (ABNORMAL) POC GLUCOSE (05/17/2018 3:17 AM OFFICE ASST) GLUCOSE POC 124(H) 74 - 99 mg/dL 05/17/2018 3:29 AM OFFICE ASST [facility] LABORATORY [facility] USABILITY ENGINEER NAME POC KENIA QUIROZ 05/17/2018 3:29 AM [facility]ICE [facility]ST [facility] Whole blood specimen (specimen) 05/17/2018 3:17 AM OFFICE ASST 05/17/2018 3:29 AM OFFICE ASST Loki Vences MD POINT OF CARE TESTIN G Performing Organization Address [facility] Co de Phone Number [facility] [employer] [facility] CLIA# [id number] [address] [place] [address] * POC GLUCOSE (05/17/2018 2:05 AM OFFICE ASST) GLUCOSE POC 97 74 - 99 mg/dL 05/17/2018 2:19 AM OFFICE ASST [facility] LABORATORY [facility] USABILITY ENGINEER NAME KENIA LYON 05/17/2018 2:19 AM OFFICE ASST [facility] LABORATORY [facility] Whole blood specimen (specimen) 05/17/2018 2:05 AM OFFICE ASST 05/17/2018 2:19 AM OFFICE ASST Loki Vences MD POINT OF CARE TESTIN G [employer] [facility] CLIA# [id number] [address] [place] [address] * (ABNORMAL) COMPREHENSIVE METABOLIC PANEL (05/17/2018 1:21 AM OFFICE ASST) SODIUM 136 136 - 145 mmol/L 05/17/2018 2:34 AM [facility] [employer] [facility] POTASSIUM 4.1 3.5 - 5.0 mmol/L 05/17/2018 2:34 AM [facility] [employer] [facility] Comment: Moderate hemolysis present. ??Can cause significant falsely elevated result. ??Clinical judgement necessary. ??Redraw if indicated. CHLORIDE 100 98 - 107 mmol/L 05/17/2018 2:34 AM [facility] [employer] [facility] CO2 24 22 - 29 mmol/L 05/17/2018 2:34 AM [facility] [employer] [facility] CALCIUM 8.3(L) 8.6 - 10.2 mg/dL 05/17/2018 2:34 AM [facility] [employer] [facility] BUN 9 6 - 20 mg/dL 05/17/2018 2:34 AM [facility] [employer] [facility] CREATININE 0.47(L) 0.51 - 0.95 mg/dL 05/17/2018 2:34 AM [facility] [employer] [facility] GLUCOSE 108(H) 74 - 99 mg/dL 05/17/2018 2:34 AM [facility] [employer] [facility] TOTAL PROTEIN 5.7(L) 6.7 - 8.6 g/dL 05/17/2018 2:34 AM [facility] [employer] [facility] ALBUMIN 3.5 3.5 - 5.2 g/dL 05/17/2018 2:34 AM [facility] [employer] [facility] BILIRUBIN TOTAL <0.2(L) 0.3 - 1.2 mg/dL 05/17/2018 2:34 AM [facility] [employer] [facility] ALKALINE PHOSPHATASE 62 35 - 104 U/L 05/17/2018 2:34 AM [facility] [employer] [facility] AST 26 <33 U/L 05/17/2018 2:34 AM [facility] [employer] [facility] Comment: Cleared of chylomicrons. Hemolysis present. Result may be falsely elevated. ALT 17 <34 U/L 05/17/2018 2:34 AM [facility] Comment: Cleared of chylomicrons. Hemolysis present. Result may be falsely elevated. GFR >60 >=60 mL/min/1.7 3 sq meter 05/17/2018 2:34 AM [facility] Comment: eGFR [...] GFR, >60 >=60 mL/min/1.7 3 sq meter 05/17/2018 2:34 AM [facility] [employer] [facility] ANION GAP 12 8 - 16 mmol/L 05/17/2018 2:34 AM [facility] [employer] [facility] Blood Venipuncture / Unknown 05/17/2018 1:21 AM OFFICE ASST 05/17/2018 1:34 AM [facility] - 05/17/2018 2:34 AM [facility] Samples containing indocyanine green cause interferences on Total and/or Direct Bilirubin and must not be measured. Loki Vences MD CHEMISTRY ORDERABLES [facility] CLIA# [id number] [address] [place] [address] * (ABNORMAL) CBC WITH DIFFERENTIAL (05/17/2018 1:21 AM OFFICE ASST) Pathologist [facility] WBC 8.4 4.0 - 9.8 K/uL 05/17/2018 1:41 AM [facility] [employer] [facility] RBC 3.54(L) 3.90 - 4.90 M/uL 05/17/2018 1:41 AM [facility] [employer] [facility]AT[facility] HEMOGLOBIN 11.0(L) 11.8 - 14.8 g/dL 05/17/2018 1:41 AM [facility] HEMATOCRIT 32.8(L) 35.5 - 44.0 % 05/17/2018 1:41 AM [facility] [employer] LAB[facility]ATORY [facility] MCV 92.7 82.0 - 99.0 fL 05/17/2018 1:41 AM [facility] [employer] [facility] MCH 31.1 27.2 - 32.6 pg 05/17/2018 1:41 AM [facility] [employer] [facility] MCHC 33.5 31.5 - 35.5 g/dL 05/17/2018 1:41 AM [facility] [employer] [facility] RDW 14.3 11.5 - 14.5 % 05/17/2018 1:41 AM [facility] [employer] [facility] RDW-STDEV 49.0(H) 37.1 - 48.7 fL 05/17/2018 1:41 AM OFFICE ASST [employer] [facility] PLATELETS 235 140 - 350 K/uL 05/17/2018 1:41 AM [facility] [employer] [facility] MPV 9.3 9.3 - 12.4 fL 05/17/2018 1:41 AM [facility] [employer] [facility] NEUTROPHILS 54 % 05/17/2018 1:41 AM [facility] [employer] [facility] LYMPHOCYTES 38 % 05/17/2018 1:41 AM OFFICE ASST [employer] [facility] MONOCYTES 6 % 05/17/2018 1:41 AM OFFICE ASST [employer] [facility] EOSINOPHILS 1 % 05/17/2018 1:41 AM OFFICE ASST [employer] [facility] BASOPHILS 1 % 05/17/2018 1:41 AM OFFICE ASST [employer] [facility] IMMATURE GRANULOCYTES 1 % 05/17/2018 1:41 AM [facility] [employer] [facility] Comment:IG (Immature Granulo cyte) count includes Metamyelocytes, Myelocytes, and Promyelocytes NEUTROPHIL ABSOLUTE 4.59 1.90 - 7.00 K/uL 05/17/2018 1:41 AM OFFICE ASST [employer] [facility] LYMPHOCYTE ABSOLUTE 3.16 0.70 - 4.50 K/uL 05/17/2018 1:41 AM [facility] MONOCYTE ABSOLUTE 0.46 0.10 - 1.30 K/uL 05/17/2018 1:41 AM [facility]ORY [facility] EOSINOPHIL ABSOLUTE 0.09 0.00 - 0.70 K/uL 05/17/2018 1:41 AM [facility] BASOPHILS ABSOLUTE 0.04 0.00 - 0.20 K/uL 05/17/2018 1:41 AM [facility]ATORY [facility] - [facility] IMMATURE GRANULOCYTES ABSOLUTE 0.08(H) 0.00 - 0.03 K/uL 05/17/2018 1:41 AM [facility] LABORATORY [facility] Blood Venipuncture / Unknown 05/17/2018 1:21 AM OFFICE ASST 05/17/2018 1:34 AM OFFICE ASST Loki Vences MD HEMATOLOGY ORDERABLE S Performing Organization Address City/[facility] Co de Phone Number [facility] [employer] [facility]# [id number] [address] [place] [address] * (ABNORMAL) TRIGLYCERIDE (05/17/2018 1:21 AM OFFICE ASST) TRIGLYCERIDE 2,661(H) <150 mg/dL 05/17/2018 2:17 AM [facility] LABORATORY [facility] Blood Venipuncture / Unknown 05/17/2018 1:21 AM OFFICE ASST 05/17/2018 1:34 AM OFFICE ASST Narrative [facility] - 05/17/2018 2:17 AM OFFICE ASST TRIGLYCERIDES ? mg/dL Normal ?< 150 Borderline High ?150 - 199 High ? 200 - 499 Very High ? >= 500 Based on AHA/NCEP Guidelines. Loki Vences MD CHEMISTRY ORDERABLES Performing Organization Address [facility] Co de Phone Number [facility]# [id number] [address] [place] [address] * LACTIC ACID (05/16/2018 9:39 PM OFFICE ASST) Pathologist [facility] LACTIC ACID 2.0 0.5 - 2.0 mmol/L 05/16/2018 10:15 PM OFFICE ASST [facility] Blood Venipuncture / Unknown 05/16/2018 9:39 PM OFFICE ASST 05/16/2018 9:47 PM OFFICE ASST Loki Vences MD CHEMISTRY ORDERABLES Performing Organization Address [facility] Co de Phone Number [facility]# [id number] [address] [place] [address] * (ABNORMAL) HEMOGLOBIN A1C (05/16/2018 9:39 PM OFFICE ASST) Pathologist [facility] HEMOGLOBIN A1C 8.0(H) <5.7 % 05/16/2018 10:11 PM OFFICE ASST [facility] EST. AVG GLUCOSE, A1C 183 mg/dL 05/16/2018 10:11 PM [facility] Blood Venipuncture / Unknown 05/16/2018 9:39 PM OFFICE ASST 05/16/2018 9:47 PM OFFICE ASST Narrative [facility] - 05/16/2018 10:11 PM OFFICE ASST HGB A1C INTERPRETATION NORMAL: ? <5.7% PRE-DIABETES: 5.7 - 6.4% DIABETES: ? 6.5% OR GREATER Debbie Garcia MD CHEMISTRY OR DERABLES Performing Organization Address [facility]/ZIP Co de Phone Number [facility]# [id number] [address] [place] [address] * OSMOLALITY (05/16/2018 9:38 PM OFFICE ASST) Pathologist [facility] OSMOLALITY 286 275 - 300 mOsm/kg 05/16/2018 10:52 PM [facility] Blood Venipuncture / Unknown 05/16/2018 9:38 PM OFFICE ASST 05/16/2018 9:47 PM OFFICE ASST Loki Vences MD CHEMISTRY ORDERABLES [facility] CLIA# [id number] [address] [place] [address] * TSH (05/16/2018 9:38 PM OFFICE ASST) TSH 4.04 0.27 - 4.20 uIU/mL 05/16/2018 10:51 PM [facility] Blood Venipuncture / Unknown 05/16/2018 9:38 PM OFFICE ASST 05/16/2018 9:47 PM OFFICE ASST Loki Vences MD CHEMISTRY ORDERABLES [facility] [place] CLIA# [id number] [address] [place] [address] * (ABNORMAL) LIPID PANEL (05/16/2018 9:38 PM OFFICE ASST) CHOLESTEROL 505(H) <200 mg/dL 05/16/2018 10:54 PM [facility] [place] [facility] TRIGLYCERIDE 3,147(H) <150 mg/dL 05/16/2018 10:54 PM [facility] [place] HDL 40 - 59 mg/dL 05/16/2018 10:54 PM [facility] [place] Comment: Measured HDL is not accurate when the Triglyceride value exceeds 1200. LDL CALCULATED <100 mg/dL 05/16/2018 10:54 PM [facility] Comment:Calculated LDL is no t accurate when the Triglyceride value exceeds 400. NON-HDL CHOLESTEROL <130 mg/dL 05/16/2018 10:54 PM [facility] Comment:Non HDL Cholesterol cannot be calculated when the HDL value is suppressed. Blood Venipuncture / Unknown 05/16/2018 9:38 PM OFFICE ASST 05/16/2018 9:47 PM OFFICE ASST Narrative [facility] - 05/16/2018 10:54 PM OFFICE ASST TOTAL CHOLESTEROL ??mg/dL ??Desirable <200 ??Borderline high [...] Guidelines Reference Ranges for Lipid Panels (NCEP/AMA) Debbie Garcia MD CHEMISTRY OR DERABLES Performing Organization Address City/[facility]/ZIP Co de Phone Number [facility]# [id number] [address] [place] [address] * (ABNORMAL) POC GLUCOSE (05/16/2018 7:56 PM OFFICE ASST) GLUCOSE POC 129(H) 74 - 99 mg/dL 05/19/2018 7:54 AM OFFICE ASST [facility] USABILITY ENGINEER NAME POC JEFF TAVERA 05/19/2018 7:54 AM OFFICE ASST [facility] Whole blood specimen (specimen) 05/16/2018 7:56 PM OFFICE ASST 05/19/2018 7:54 AM OFFICE ASST Eva Foreman MD POINT OF CARE TESTIN G Performing Organization Address [facility]/ZIP Co de Phone Number [id number] [address] [place] [address] * (ABNORMAL) COMPREHENSIVE METABOLIC PANEL (05/16/2018 5:41 PM [facility]) SODIUM 130(L) 136 - 145 mmol/L 05/16/2018 7:29 PM [facility] POTASSIUM 3.5 - 5.0 mmol/L 05/16/2018 7:29 PM [facility] Comment: Gross hemolysis present. ??Result unreliable. CHLORIDE 96(L) 98 - 107 mmol/L 05/16/2018 7:29 PM [facility] CO2 20(L) 22 - 29 mmol/L 05/16/2018 7:29 PM [facility] CALCIUM 8.9 8.6 - 10.2 mg/dL 05/16/2018 7:29 PM [facility] [place] BUN 10 6 - 20 mg/dL 05/16/2018 7:29 PM [facility] CREATININE 0.16(L) 0.51 - 0.95 mg/dL 05/16/2018 7:29 PM [facility] [place] GLUCOSE 143(H) 74 - 99 mg/dL 05/16/2018 7:29 PM [facility] TOTAL PROTEIN 6.7 6.7 - 8.6 g/dL 05/16/2018 7:29 PM [facility] ALBUMIN 3.7 3.5 - 5.2 g/dL 05/16/2018 7:29 PM [facility] BILIRUBIN TOTAL 0.2(L) 0.3 - 1.2 mg/dL 05/16/2018 7:29 PM [facility] ALKALINE PHOSPHATASE 35 - 104 U/L 05/16/2018 7:29 PM [facility] Comment: Gross hemolysis present. ??Result unreliable. AST 40(H) <33 U/L 05/16/2018 7:29 PM [facility] Comment: Hemolysis present. Result may be falsely elevated. ALT 14 <34 U/L 05/16/2018 7:29 PM [facility] Comment: Hemolysis present. Result may be falsely elevated. GFR >60 >=60 mL/min/1.7 3 sq meter 05/16/2018 7:29 PM [facility] [place] Comment: eGFR has not been validated [...] GFR, >60 >=60 mL/min/1.7 3 sq meter 05/16/2018 7:29 PM OFFICE ASST [facility] [place] [facility] ANION GAP 14 8 - 16 mmol/L 05/16/2018 7:29 PM [facility] [place] Blood Venipuncture / Unknown 05/16/2018 5:41 PM OFFICE ASST 05/16/2018 5:50 PM OFFICE ASST [facility] [place] [facility] - 05/16/2018 7:29 PM OFFICE ASST Samples containing indocyanine green cause interferences on Total and/or Direct Bilirubin and must not be measured. Eva Foreman MD CHEMISTRY ORDERABLES [facility]# [id number] [address] [facility] [place] [address] * (ABNORMAL) PROTIME-INR (05/16/2018 4:39 PM OFFICE ASST) PROTIME 11.6(L) 12.7 - 15.1 Seconds 05/16/2018 5:26 PM OFFICE ASST [facility] INR 0.9 0.9 - 1.1 05/16/2018 5:26 PM [facility] [place] Blood Venipuncture / Unknown 05/16/2018 4:39 PM OFFICE ASST 05/16/2018 4:46 PM OFFICE ASST [facility] [place] [facility] - 05/16/2018 5:26 PM OFFICE ASST INR Therapeutic Range: Adult: ?? 2.0 - 3.0 for pulmonary embolism or prophylaxis against venous ?thrombosis or systemic embolization. 2.0 - 3.0 for patients with tissue heart valves. 2.5 - 3.5 for patients with mechanical heart valves or post SC. Pediatric ??(12 years and under): 1.5 - 3.0 Although the target range in children is not well established, ?INR values of 1.5 - 3.0 are recommended for most patients. ?Higher values have been used in children with prosthetic ?cardiac valves and hereditary clotting disorders. [place] (<3 days) therapeutic ranges have not been established. Eva Foreman MD HEMATOLOGY ORDERABLE S Performing Organization Address City/[facility]/ZIP Co de Phone Number [facility]# [id number] [address] [facility] [place] [address] * LIPASE (05/16/2018 4:39 PM OFFICE ASST) LIPASE 36 13 - 60 U/L 05/16/2018 5:27 PM OFFICE ASST [facility] Blood Venipuncture / Unknown 05/16/2018 4:39 PM OFFICE ASST 05/16/2018 4:46 PM OFFICE ASST Eva Foreman MD CHEMISTRY ORDERABLES Performing Organization Address [facility]/ZIP Co de Phone Number [facility]# [id number] [address] [place] [address] * (ABNORMAL) C-REACTIVE PROTEIN (05/16/2018 4:39 PM OFFICE ASST) CRP 11.9(H) <5.0 mg/L 05/16/2018 5:27 PM OFFICE ASST [facility] Blood Venipuncture / Unknown 05/16/2018 4:39 PM OFFICE ASST 05/16/2018 4:46 PM OFFICE ASST Eva Foreman MD CHEMISTRY ORDERABLES [facility] CLIA# [id number] [address] [place] [address] * (ABNORMAL) CBC WITH DIFFERENTIAL (05/16/2018 4:39 PM OFFICE ASST) WBC 10.3(H) 4.0 - 9.8 K/uL 05/16/2018 5:01 PM [facility] [employer] [facility] RBC 4.18 3.90 - 4.90 M/uL 05/16/2018 5:01 PM [facility] [employer] [facility] HEMOGLOBIN 13.9 11.8 - 14.8 g/dL 05/16/2018 5:01 PM [facility] [employer] [facility] HEMATOCRIT 38.4 35.5 - 44.0 % 05/16/2018 5:01 PM [facility] [employer] [facility] MCV 91.9 82.0 - 99.0 fL 05/16/2018 5:01 PM [facility] [employer] [facility] MCH 33.3(H) 27.2 - 32.6 pg 05/16/2018 5:01 PM [facility] [employer] [facility] MCHC 36.2(H) 31.5 - 35.5 g/dL 05/16/2018 5:01 PM [facility] [employer] [facility] RDW 14.6(H) 11.5 - 14.5 % 05/16/2018 5:01 PM OFFICE ASST [employer] [facility] RDW-STDEV 49.4(H) 37.1 - 48.7 fL 05/16/2018 5:01 PM OFFICE ASST [employer] [facility] PLATELETS 336 140 - 350 K/uL 05/16/2018 5:01 PM OFFICE ASST [employer] [facility] MPV 9.8 9.3 - 12.4 fL 05/16/2018 5:01 PM OFFICE ASST [employer] [facility] NEUTROPHILS 66 % 05/16/2018 5:01 PM OFFICE ASST [employer] [facility] LYMPHOCYTES 26 % 05/16/2018 5:01 PM OFFICE ASST [employer] [facility] MONOCYTES 5 % 05/16/2018 5:01 PM [facility] EOSINOPHILS 1 % 05/16/2018 5:01 PM [facility] BASOPHILS 1 % 05/16/2018 5:01 PM [facility] IMMATURE GRANULOCYTES 1 % 05/16/2018 5:01 PM [facility] Comment:IG (Immature Granulo cyte) count includes Metamyelocytes, Myelocytes, and Promyelocytes NEUTROPHIL ABSOLUTE 6.78 1.90 - 7.00 K/uL 05/16/2018 5:01 PM [facility] LYMPHOCYTE ABSOLUTE 2.70 0.70 - 4.50 K/uL 05/16/2018 5:01 PM [facility] MONOCYTE ABSOLUTE 0.53 0.10 - 1.30 K/uL 05/16/2018 5:01 PM [facility] EOSINOPHIL ABSOLUTE 0.09 0.00 - 0.70 K/uL 05/16/2018 5:01 PM [facility] BASOPHILS ABSOLUTE 0.05 0.00 - 0.20 K/uL 05/16/2018 5:01 PM [facility] IMMATURE GRANULOCYTES ABSOLUTE 0.11(H) 0.00 - 0.03 K/uL 05/16/2018 5:01 PM [facility] Blood Venipuncture / Unknown 05/16/2018 4:39 PM OFFICE ASST 05/16/2018 4:46 PM [facility] Eva Foreman MD HEMATOLOGY ORDERABLE S [facility] CLIA# [id number] [address] [facility] [place], [place] [id number] * (ABNORMAL) URINALYSIS WITH REFLEX MICROSCOPIC (05/16/2018 4:31 PM OFFICE ASST) COLOR UA Yellow Pale to Dark Yellow 05/16/2018 4:58 PM [facility] CLARITY UA Slightly Cloudy(A) Clear 05/16/2018 4:58 PM [facility] [place] SPECIFIC GRAVITY UA 1.023 1.003 - 1.035 05/16/2018 4:58 PM [facility] PH UA 5.0 5.0 - 8.0 05/16/2018 4:58 PM [facility] LEUKOCYTE ESTERASE UA Negative Negative 05/16/2018 4:58 PM [facility] NITRITE UA Negative Negative 05/16/2018 4:58 PM [facility] PROTEIN UA Negative Negative 05/16/2018 4:58 PM [facility] GLUCOSE UA 1+(A) Negative 05/16/2018 4:58 PM [facility] KETONES UA Trace(A) Negative 05/16/2018 4:58 PM [facility] UROBILINOGEN UA Normal <2.0 mg/dL 9 4:58 PM [facility] BILIRUBIN UA Negative Negative 05/16/2018 4:58 PM [facility] BLOOD UA Negative Negative 05/16/2018 4:58 PM [facility] WBC UA 0-2 0 - 2 /hpf 05/16/2018 4:58 PM [facility] RBC UA 0-2 0 - 2 /hpf 05/16/2018 4:58 PM [facility] BACTERIA UA 1+(A) Negative /hpf 05/16/2018 4:58 PM [facility] . [facility] EPITHELIAL CELLS, URINE 6-10(A) 0 - 5 /hpf 05/16/2018 4:58 PM [facility] Urine URINE SPECIMEN OBTAINED BY CLEAN CATCH PROCEDURE / Unknown Collection / Unknown 05/16/2018 4:31 PM OFFICE ASST 05/16/2018 4:38 PM OFFICE ASST Eva Foreman MD URINE ORDERABLES [facility] CLIA# [id number] [address] [place] [address] [address] [place] [address] documented in this encounter Visit Diagnoses Diagnosis Acute pancreatitis- Primary Acute gastroenteritis Other and unspecified noninfectious gastroenteritis and colitis Epigastric pain Abdominal pain, epigastric History of pancreatitis Personal history of other diseases of digestive system Hypertriglyceridemia Pure hyperglyceridemia Type 2 diabetes mellitus without complication, with long-term current use of insulin Family history of early CAD Family history of ischemic heart disease Metabolic syndrome Dysmetabolic Syndrome X Tobacco use Tobacco use disorder Hypothyroidism, unspecified type Depression with anxiety Dysthymic disorder GERD (gastroesophageal reflux disease) Esophageal reflux History of plasmapheresis Hypertriglyceridemia Pure hyperglyceridemia Hypothyroidism Unspecified hypothyroidism Hyponatremia Hyposmolality and/or hyponatremia Pancreatitis, recurrent Chronic pancreatitis Tobacco use Tobacco use disorder Type 2 diabetes mellitus without complication, with long-term current use of insulin documented in this encounter Administered Medications Inactive Administered Medications - up to 3 most recent administrations Medication Order MAR Action Action Date Dose Rate Site acetaminophen (TYLENOL) tablet 650 mg 650 mg, Oral, EVERY 6 HOURS PRN, Starting on Sat05/16/18 at 2227, Until Sat05/21/18 at 2018, Other (See Comment), See admin instructions, Routine atorvastatin (LIPITOR) tablet 80 mg 80 mg, Oral, DAILY AT BEDTIME, First dose on Sat05/16/18 at 2330, Until Discontinued, Routine Given 05/20/2018 8:16 PM OFFICE ASST 80 mg Given 05/19/2018 9:26 PM OFFICE ASST 80 mg Given 05/18/2018 8:08 PM OFFICE ASST 80 mg calcium GLUCONATE 2,000 mg in sodium chloride 0.9% 120 mL IVPB 2,000 mg, IV, INTRA-PROCEDURE ONCE, 1 dose, Starting on 05/17/18 at 1200, Until 05/17/18 at 1550, Routine New Bag 05/17/2018 3:02 PM OFFICE ASST 2,000 mg 150 mL /hr calcium GLUCONATE 2,000 mg in sodium chloride 0.9% 120 mL IVPB 2,000 mg, IV, ONE TIME ONLY, 1 dose, On 05/18/18 at 1000, Routine New Bag 05/18/2018 11:06 AM OFFICE ASST 2,000 mg 144 mL/hr calcium GLUCONATE 2,000 mg in sodium chloride 0.9% 120 mL IVPB 2,000 mg, IV, INTRA-PROCEDURE ONCE, 1 dose, Starting on 05/19/18 at 1300, Until Sat05/19/18 at 1530, Routine New Bag 05/19/2018 2:35 PM OFFICE ASST 2,000 mg 240 mL /hr citalopram (CeleXA) tablet 40 mg 40 mg, Oral, DAILY AT BEDTIME, First dose on Sat05/16/18 at 2330, Until Discontinued, Routine Given 05/20/2018 8:16 PM OFFICE ASST 40 mg Given 05/19/2018 9:26 PM OFFICE ASST 40 mg Given 05/18/2018 8:07 PM OFFICE ASST 40 mg dextrose 5% - sodium chloride 0.45% infusion IV, at 100 mL/hr, CONTINUOUS, Starting on Sat05/17/18 at 0130, Until Sat05/19/18 at 0641, Routine Rate Verify 05/19/2018 5:20 AM OFFICE ASST 100 mL/hr New Bag 05/18/2018 8:13 AM OFFICE ASST 100 mL/hr Bag Switched 05/17/2018 9:12 PM OFFICE ASST 100 mL/hr dextrose 5% - sodium chloride 0.9% infusion IV, at 40 mL/hr, SEE ADMIN INSTRUCTIONS, Starting on Sat05/20/18 at 1125, Until Sat05/21/18 at 2018, Routine dextrose 50% (D50) syringe 12.5 Gram 12.5 Gram, IV, SEE ADMIN INSTRUCTIONS, Starting on Sat05/20/18 at 1125, Until Sat05/21/18 at 2018, Routine dextrose 50% (D50) syringe 25 Gram 25 Gram, IV, SEE ADMIN INSTRUCTIONS, Starting on Sat05/20/18 at 1125, Until Sat05/21/18 at 2018, Routine diphenhydrAMINE (BENADRYL) tablet 25 mg 25 mg, Oral, EVERY 6 HOURS PRN, Starting on Sat05/17/18 at 1416, Until Sat05/21/18 at 2018, Itching, Routine Given 05/18/2018 3:44 PM OFFICE ASST 25 mg Given 05/17/2018 7:13 PM OFFICE ASST 25 mg Given 05/17/2018 2:30 PM OFFICE ASST 25 mg enoxaparin (LOVENOX) injection 40 mg 40 mg, subCUT, EVERY 24 HOURS, First dose (after last modification) on Sat05/18/18 at 0900, Until Discontinued, Routine Given 05/21/2018 10:14 AM OFFICE ASST 40 mg Abdomen, Left Lower Quadrant Given 05/20/2018 10:07 AM OFFICE ASST 40 mg A bdomen, Right Upper Quadrant Given 05/19/2018 8:07 AM OFFICE ASST 40 mg Ab domen, Left Lower Quadrant fenofibrate (LOFIBRA) tablet 160 mg 160 mg, Oral, DAILY, First dose (after last modification) on 05/17/18 at 1100, Until Discontinued, Routine Given 05/21/2018 10:12 AM OFFICE ASST 160 mg Given 05/20/2018 10:09 AM OFFICE ASST 160 mg Given 05/19/2018 11:46 AM OFFICE ASST 160 mg Fish Oil-[place]-3 Fatty Acids 360-1,200 mg capsule 2 Capsule 2 Capsule, Oral, TWO TIMES DAILY, First dose (after last modification) on 05/17/18 at 1100, Until Discontinued, Routine Given 05/21/2018 10:12 AM OFFICE ASST 2 Capsules Given 05/20/2018 8:16 PM OFFICE ASST 2 Capsules Given 05/20/2018 10:08 AM OFFICE ASST 2 Capsules glucagon HCl 1 mg injection 1 mg 1 mg, IM, SEE ADMIN INSTRUCTIONS, Starting on Sat05/20/18 at 1125, Until Sat05/21/18 at 2018, Routine HYDROmorphone (DILAUDID) 2 mg/mL injection 0.3 mg 0.3 mg, IV, EVERY 4 HOURS PRN, Starting on 05/17/18 at 1413, Until Sat05/18/18 at 0958, Pain (See admin instructions), Routine Given 05/18/2018 8:10 AM OFFICE ASST 0.3 mg Given 05/18/2018 2:10 AM OFFICE ASST 0.3 mg Given 05/17/2018 9:07 PM OFFICE ASST 0.3 mg HYDROmorphone (DILAUDID) 2 mg/mL injection 0.3 mg 0.3 mg, IV, EVERY 4 HOURS PRN, Starting on Sat05/21/18 at 0806, Until Sat05/21/18 at 2018, Pain (See admin instructions), Routine Given 05/21/2018 11:4 7 AM OFFICE ASST 0.3 mg HYDROmorphone (DILAUDID) 2 mg/mL injection 0.5 mg 0.5 mg, IV, EVERY 4 HOURS PRN, Starting on 05/17/18 at 1247, Until 05/17/18 at 1413, Pain (See admin instructions), Routine Given 05/17/2018 12:5 4 PM OFFICE ASST 0.5 mg HYDROmorphone (DILAUDID) 2 mg/mL injection 0.5 mg 0.5 mg, IV, EVERY 4 HOURS PRN, Starting on 05/18/18 at 0958, Until Sat05/21/18 at 0807, Pain (See admin instructions), Routine Given 05/21/2018 6:53 AM OFFICE ASST 0.5 mg Given 05/21/2018 12:27 AM OFFICE ASST 0.5 mg Given 05/20/2018 8:15 PM OFFICE ASST 0.5 mg hyoscyamine sulfate injection 0.25 mg 0.25 mg, IV, ONE TIME ONLY, 1 dose, On Sat05/16/18 at 1700, Routine Given 05/16/2018 5:13 PM OFFICE ASST 0.25 mg insulin lispro (HumaLOG) variable dose injection subCUT, FOUR TIMES DAILY BEFORE MEALS AND AT BEDTIME, First dose (after last modification) on Sat05/20/18 at 2100, Until Discontinued, Routine Given 05/21/2018 5:32 PM OFFICE ASST 1 Units Arm, Left Upper Given 05/21/2018 3:06 PM OFFICE ASST 2 Units Ar m, Left Upper Given 05/21/2018 10:24 AM OFFICE ASST 1 Units A rm, Right insulin regular (HUMULIN R,NOVOLIN R) 100 Units in sodium chloride 0.9% 99 mL infusion 1 Units/hr (1 mL/hr), IV, CONTINUOUS, Starting on Sat05/17/18 at 0445, Until Sat05/19/18 at 0641 Rate Verify 05/17/2018 7:00 AM OFFICE ASST 8 Units/hr 8 mL/hr Rate Verify 05/17/2018 6:00 AM OFFICE ASST 8 Units/hr 8 mL/hr Rate Verify 05/17/2018 5:00 AM OFFICE ASST 8 Units/hr 8 mL/hr lactated Ringers solution IV, at 100 mL/hr, CONTINUOUS, Starting on Sat05/19/18 at 0645, Until Sat05/21/18 at 1612, Routine Bag Switched 05/21/2018 10:23 AM OFFICE ASST 100 mL/hr New Bag 05/20/2018 2:19 PM OFFICE ASST 100 mL/hr Restarted 05/20/2018 4:27 AM OFFICE ASST 100 mL/hr levothyroxine (SYNTHROID) tablet 200 mcg 200 mcg, Oral, DAILY, First dose (after last modification) on Sat05/17/18 at 1100, Until Discontinued, Routine Given 05/21/2018 10:12 AM OFFICE ASST 200 mcg Given 05/20/2018 10:08 AM OFFICE ASST 200 mcg Given 05/19/2018 11:46 AM OFFICE ASST 200 mcg metoclopramide HCl (REGLAN) injection 10 mg 10 mg, IV, ONE TIME ONLY, 1 dose, On Sat05/16/18 at 1900, Routine Given 05/16/2018 7:00 PM OFFICE ASST 10 mg metoclopramide HCl (REGLAN) injection 10 mg 10 mg, IV, ONE TIME ONLY, 1 dose, On Sat05/16/18 at 2230, Routine Given 05/17/2018 12:04 AM OFFICE ASST 10 mg morphine 4 mg/mL injection 4 mg 4 mg, IV, ONE TIME ONLY, 1 dose, On Sat05/16/18 at 1900, Routine Given 05/16/2018 6:53 PM OFFICE ASST 4 mg morphine 4 mg/mL injection 4 mg 4 mg, IV, EVERY 4 HOURS PRN, Starting on Sat05/16/18 at 2156, Until Sat05/17/18 at 1247, Pain (See admin instructions), Routine Given 05/17/2018 12:16 PM OFFICE ASST 4 mg Given 05/17/2018 10:07 AM OFFICE ASST 4 mg Given 05/17/2018 6:08 AM OFFICE ASST 4 mg niacin (NIACOR) tablet 500 mg 500 mg, Oral, TWO TIMES DAILY, First dose (after last modification) on Sat05/16/18 at 2330, Until Discontinued, Routine Given 05/21/2018 10:12 AM OFFICE ASST 500 mg Given 05/20/2018 8:16 PM OFFICE ASST 500 mg Given 05/20/2018 10:10 AM OFFICE ASST 500 mg nicotine (NICODERM CQ) 21 mg/24 hr transdermal patch 1 Patch 1 Patch, Transdermal, DAILY, First dose on Sat05/17/18 at 0900, Until Discontinued, Routine Applied 05/21/2018 10:13 AM OFFICE ASST 1 Patch Arm, Right Upper Applied 05/20/2018 10:03 AM OFFICE ASST 1 Patch A rm, Right Upper Applied 05/19/2018 8:07 AM OFFICE ASST 1 Patch Ar m, Left Upper ondansetron (ZOFRAN) 4 mg/2 mL injection 4 mg 4 mg, IV, ONE TIME ONLY, 1 dose, On Sat05/16/18 at 1700, Routine Given 05/16/2018 5:10 PM OFFICE ASST 4 mg ondansetron (ZOFRAN) 4 mg/2 mL injection 4 mg 4 mg, IV, EVERY 6 HOURS PRN, Starting on Sat05/16/18 at 2224, Until Sat05/21/18 at 2018, Nausea/Emesis, Routine Given 05/20/2018 2:18 PM OFFICE ASST 4 mg Given 05/19/2018 7:54 PM OFFICE ASST 4 mg Given 05/18/2018 1:03 PM OFFICE ASST 4 mg oxyCODONE (ROXICODONE) tablet 5 mg 5 mg, Oral, EVERY 4 HOURS PRN, Starting on Sat05/16/18 at 2227, Until Sat05/18/18 at 0957, Pain (See admin instructions), Routine Given 05/18/2018 7:06 AM OFFICE ASST 5 mg Given 05/18/2018 1:31 AM OFFICE ASST 5 mg Given 05/17/2018 7:11 PM OFFICE ASST 5 mg oxyCODONE-acetaminophen (PERCOCET) 5-325 mg per tablet 1 Tablet 1 Tablet, Oral, EVERY 4 HOURS PRN, Starting on Sat05/18/18 at 0957, Until Sat05/21/18 at 2018, Pain (See admin instructions), Routine Given 05/21/2018 10:37 AM OFFICE ASST 1 Tablet Given 05/20/2018 6:19 PM OFFICE ASST 1 Tablet Given 05/20/2018 2:17 PM OFFICE ASST 1 Tablet pantoprazole (PROTONIX) injection 40 mg 40 mg, IV, ONE TIME ONLY, 1 dose, On Sat05/16/18 at 1700, Routine Given 05/16/2018 5:11 PM OFFICE ASST 40 mg pantoprazole (PROTONIX) tablet 40 mg 40 mg, Oral, TWO TIMES DAILY, First dose (after last modification) on Sat05/17/18 at 1100, Until Discontinued, Routine Given 05/21/2018 10:16 AM OFFICE ASST 40 mg Given 05/20/2018 8:16 PM OFFICE ASST 40 mg Given 05/20/2018 10:08 AM OFFICE ASST 40 mg potassium chloride (KLOR-CON) SR tablet 40 mEq 40 mEq, Oral, ONE TIME ONLY, 1 dose, On Sat05/21/18 at 1145, Routine Given 05/21/2018 11:44 AM OFFICE ASST 40 mEq prochlorperazine (COMPAZINE) injection 10 mg 10 mg, IV, EVERY 4 HOURS PRN, Starting on Sat05/18/18 at 1526, Until Sat05/21/18 at 2018, Nausea/Emesis, Routine Given 05/21/2018 10:37 AM OFFICE ASST 10 mg Given 05/20/2018 6:58 PM OFFICE ASST 10 mg Given 05/19/2018 8:50 AM OFFICE ASST 10 mg sodium chloride 0.9% bolus solution 1,000 mL 1,000 mL, IV, ONE TIME ONLY, 1 dose, On Sat05/16/18 at 2200, at 2,000 mL/hr, Administer over 30 Minutes, Routine New Bag 05/16/2018 10:05 PM OFFICE ASST 1,000 mL 2000 mL/hr sodium chloride 0.9% bolus solution 1,000 mL 1,000 mL, IV, ONE TIME ONLY, 1 dose, On Sat05/17/18 at 0345, at 1,000 mL/hr, Administer over 60 Minutes, Routine New Bag 05/17/2018 3:42 AM OFFICE ASST 1,000 mL 1000 mL/hr traZODone (DESYREL) tablet 100 mg 100 mg, Oral, DAILY AT BEDTIME, First dose on Sat05/16/18 at 2330, Until Discontinued, Routine Given 05/20/2018 8:16 PM OFFICE ASST 100 mg Given 05/19/2018 9:28 PM OFFICE ASST 100 mg Given 05/18/2018 8:07 PM OFFICE ASST 100 mg documented in this encounter Active and Recently Administered Medications Times are shown in OFFICE ASST. Scheduled Medication Order 05/19/2018 05/20/2018 05/21/2018 atorvastatin (LIPITOR) tablet 80 mg 80 mg, Oral, DAILY AT BEDTIME, First dose on Sat05/16/18 at 2330, Until Discontinued, Routine 2125 (Given - Provider: BLAISE Renae) 2015 (Given - Provider: Yamileth Carolina RN) calcium GLUCONATE 2,000 mg in sodium chloride 0.9% 120 mL IVPB (COMPLETED) 2,000 mg, IV, INTRA-PROCEDURE ONCE, 1 dose, Starting on Sat05/19/18 at 1300, Until Sat05/19/18 at 1530, Routine 1435 (New Bag - Provider: Sari Sanford)1530 (Stopped - Provider: Sari Sanford) citalopram (CeleXA) tablet 40 mg 40 mg, Oral, DAILY AT BEDTIME, First dose on Sat05/16/18 at 2330, Until Discontinued, Routine 2125 (Given - Provider: BLAISE Renae) 2015 (Given - Provider: Yamileth Carolina RN) dextrose 5% - sodium chloride 0.9% infusion IV, at 40 mL/hr, SEE ADMIN INSTRUCTIONS, Starting on Sat05/20/18 at 1125, Until Sat05/21/18 at 2017, Routine dextrose 50% (D50) syringe 12.5 Gram 12.5 Gram, IV, SEE ADMIN INSTRUCTIONS, Starting on Sat05/20/18 at 1125, Until Sat05/21/18 at 2017, Routine dextrose 50% (D50) syringe 25 Gram 25 Gram, IV, SEE ADMIN INSTRUCTIONS, Starting on Sat05/20/18 at 1125, Until Sat05/21/18 at 2018, Routine enoxaparin (LOVENOX) injection 40 mg 40 mg, subCUT, EVERY 24 HOURS, First dose (after last modification) on Sat05/18/18 at 0900, Until Discontinued, Routine 0807 (Given - Provider: BLAISE Aquino) 1007 (Given - Provider: Reina Davidson RN) 1014 (Given - Provider: Jeff Keller RN) fenofibrate (LOFIBRA) tablet 160 mg 160 mg, Oral, DAILY, First dose (after last modification) on Sat05/17/18 at 1100, Until Discontinued, Routine 1146 (Given - Provider: BLAISE Aquino) 1009 (Given - Provider: Reina Davidson RN) 1012 (Given - Provider: Jeff Keller RN) Fish Oil-[place]-3 Fatty Acids 360-1,200 mg capsule 2 Capsule 2 Capsule, Oral, TWO TIMES DAILY, First dose (after last modification) on Sat05/17/18 at 1100, Until Discontinued, Routine 1144 (Given - Provider: BLAISE Aquino)2124 (Given - Provider: BLAISE Renae) 1008 (Given - Provider: Reina Davidson RN)2016 (Given - Provider: Yamileth Carolina RN) 1012 (Given - Provider: Jeff Keller RN) glucagon HCl 1 mg injection 1 mg 1 mg, IM, SEE ADMIN INSTRUCTIONS, Starting on Sat05/20/18 at 1125, Until Sat05/21/18 at 2018, Routine insulin lispro (HumaLOG) variable dose injection subCUT, FOUR TIMES DAILY BEFORE MEALS AND AT BEDTIME, First dose (after last modification) on Sat05/20/18 at 2100, Until Discontinued, Routine 211 (Given - Provider: Yamileth Carolina RN - Comment: BS 196) 1024 (Given - Provider: Francisco Song RN - Comment: BS 155)1506 (Given - Provider: Jeff Keller RN - Comment: B)1732 (Given - Provider: Jeff Keller RN - Comment: B) levothyroxine (SYNTHROID) tablet 200 mcg 200 mcg, Oral, DAILY, First dose (after last modification) on Sat05/17/18 at 1100, Until Discontinued, Routine 1146 (Given - Provider: BLAISE Aquino) 1008 (Given - Provider: Reina Davidson RN) 1012 (Given - Provider: Jeff Keller RN) naloxone (NARCAN) 0.4 mg/mL injection 0.1 mg 0.1 mg, IV, SEE ADMIN INSTRUCTIONS, Starting on Sat05/16/18 at 2010, Until Sat05/21/18 at 2018, Routine niacin (NIACOR) tablet 500 mg 500 mg, Oral, TWO TIMES DAILY, First dose (after last modification) on Sat05/16/18 at 2330, Until Discontinued, Routine 1146 (Given - Provider: BLAISE Aquino)2123 (Given - Provider: BLAISE Renae) 1010 (Given - Provider: Reina Davidson RN)2015 (Given - Provider: Yamileth Carolina RN) 1012 (Given - Provider: Jeff Keller RN) nicotine (NICODERM CQ) 21 mg/24 hr transdermal patch 1 Patch 1 Patch, Transdermal, DAILY, First dose on Sat05/17/18 at 0900, Until Discontinued, Routine 0807 (Applied - Provider: BLAISE Aquino)0809 (Removed - Provider: BLAISE Aquino) 0807 (Removed - Provider: Reina Davidson RN)1003 (Applied - Provider: Reina Davidson RN) 1012 (Removed - Provider: Jeff Keller RN)1013 (Applied - Provider: Jeff Keller RN)1818 (Due: Removed - Provider: PROVIDER, DISCHARGE PATIENT - Comment: Time automatically adjusted from order being discontinued) pantoprazole (PROTONIX) tablet 40 mg 40 mg, Oral, TWO TIMES DAILY, First dose (after last modification) on 05/17/18 at 1100, Until Discontinued, Routine 1146 (Given - Provider: BLAISE Aquino)2124 (Given - Provider: BLAISE Renae) 1008 (Given - Provider: Reina Davidson RN)2015 (Given - Provider: Yamileth Carolina RN) 1016 (Given - Provider: Jeff Keller, CLAU) potassium chloride (KLOR-CON) SR tablet 40 mEq (COMPLETED) 40 mEq, Oral, ONE TIME ONLY, 1 dose, On Sat05/21/18 at 1145, Routine 1144 (Given - Provid er: Jeff Keller RN) traZODone (DESYREL) tablet 100 mg 100 mg, Oral, DAILY AT BEDTIME, First dose on Sat05/16/18 at 2330, Until Discontinued, Routine 2127 (Given - Provider: BLAISE Renae) 2015 (Given - Provider: Yamileth Carolina RN) Continuous Medication Order 05/19/2018 05/20/2018 05/21/2018 dextrose 5% - sodium chloride 0.45% infusion (CANCELED) IV, at 100 mL/hr, CONTINUOUS, Starting on 05/17/18 at 0130, Until Sat05/19/18 at 0641, Routine 0520 (Rate Verify - Provider: Blake Garcia RN)0730 (Stopped - Provider: BLAISE Aquino) lactated Ringers solution (CANCELED) IV, at 100 mL/hr, CONTINUOUS, Starting on 05/19/18 at 0645, Until Sat05/21/18 at 1612, Routine 0816 (New Bag - Provider: BLAISE Aquino)1421 (Rate Verify - Provider: Reina Davidson RN)1701 (Paused - Provider: Reina Davidson RN)1701 (Restarted - Provider: Reina Davidson RN)1755 (Bag Switched - Provider: BLAISE Aquino)1756 (Rate Verify - Provider: Reina Davidson RN)1756 (Paused - Provider: Reina Davidson RN)175 (Restarted - Provider: Reina Davidson RN)182 (Paused - Provider: Reina Davidson RN)182 (Paused - Provider: Reina Davidson RN)182 (Rate Change - Provider: Reina Davidson RN)194 (Paused - Provider: Reina Davidson RN)194 (Restarted - Provider: Reina Davidson RN)1955 (Paused - Provider: Reina Davidson RN)1955 (Restarted - Provider: Reina Davidson RN)2121 (Paused - Provider: Reina Davidson RN)212 (Restarted - Provider: Reina Davidson RN) 034 (Paused - Provider: Reina Davidson RN)034 (Restarted - Provider: Reina Davidson RN)0341 (New Bag - Provider: BLAISE Renae)0342 (Paused - Provider: Reina Davidson RN)0342 (Restarted - Provider: Reina Davidson RN)0359 (Paused - Provider: Reina Davidson RN)0427 (Restarted - Provider: Reina Davidson RN)1355 (Stopped - Provider: Reina Davidson RN)1419 (New Bag - Provider: Reina Davidson RN) 1023 (Bag Switched - Provider: Francisco Song, CLAU)1708 (Stopped - Provider: Jeff Keller RN) PRN Medication Order 05/19/2018 05/20/2018 05/21/2018 acetaminophen (TYLENOL) tablet 650 mg 650 mg, Oral, EVERY 6 HOURS PRN, Starting on Sat05/16/18 at 2227, Until Sat05/21/18 at 2018, Other (See Comment), See admin instructions, Routine diphenhydrAMINE (BENADRYL) tablet 25 mg 25 mg, Oral, EVERY 6 HOURS PRN, Starting on 05/17/18 at 1416, Until 05/21/18 at 2018, Itching, Routine HYDROmorphone (DILAUDID) 2 mg/mL injection 0.3 mg 0.3 mg, IV, EVERY 4 HOURS PRN, Starting on Sat05/21/18 at 0806, Until Sat05/21/18 at 2018, Pain (See admin instructions), Routine 1147 (Given - Provider: Jeff Keller RN) HYDROmorphone (DILAUDID) 2 mg/mL injection 0.5 mg (CANCELED) 0.5 mg, IV, EVERY 4 HOURS PRN, Starting on 05/18/18 at 0958, Until Sat05/21/18 at 0807, Pain (See admin instructions), Routine 0543 (Given - Provider: Blake Garcia RN)0849 (Given - Provider: BLAISE Aquino)1317 (Given - Provider: BLAISE Aquino)1649 (Given - Provider: BLAISE Aquino)2121 (Given - Provider: BLAISE Renae) 0339 (Given - Provider: BLAISE Renae)1150 (Given - Provider: Reina Davidson RN)1600 (Given - Provider: Reina Davidson RN)2015 (Given - Provider: Yamileth Carolina RN) 0027 (Given - Provider: Yamileth Craolina RN)0653 (Given - Provider: Yamileth Carolina RN) ondansetron (ZOFRAN) 4 mg/2 mL injection 4 mg 4 mg, IV, EVERY 6 HOURS PRN, Starting on Sat05/16/18 at 2224, Until Sat05/21/18 at 2018, Nausea/Emesis, Routine 1954 (Given - Provider: BLAISE Renae) 1418 (Given - Provider: Reina Davidson RN) oxyCODONE-acetaminophe n (PERCOCET) 5-325 mg per tablet 1 Tablet 1 Tablet, Oral, EVERY 4 HOURS PRN, Starting on 05/18/18 at 0957, Until Sat05/21/18 at 2018, Pain (See admin instructions), Routine 0404 (Given - Provider: Blake Garcia RN)0751 (Given - Provider: BLAISE Aquino)1149 (Given - Provider: BLAISE Aquino)1604 (Given - Provider: BLAISE Aquino)2222 (Given - Provider: BLAISE Renae) 0208 (Given - Provider: BLAISE Renae)1002 (Given - Provider: Reina Davidson RN)1417 (Given - Provider: Reina Davidson RN)1819 (Given - Provider: Reina Davidson RN) 1037 (Given - Provider: Jeff Keller RN) prochlorperazine (COMPAZINE) injection 10 mg 10 mg, IV, EVERY 4 HOURS PRN, Starting on 05/18/18 at 1526, Until 05/21/18 at 2018, Nausea/Emesis, Routine 0850 (Given - Provider: BLAISE Aquino) 1858 (Given - Provider: Reina Davidson RN) 1037 (Given - Provider: Jeff Keller RN) documented in this encounter Care Teams Basket Filler Relationship Specialty Start Date End Date Guerrero Middleton PA-C PCP - General Physician Inspectors And Regulatory Officers 02/13/18 documented as of this encounter
--- OUTSIDE RECORDS SUMMARY | 2024-05-03 20:46 | XMS_ITS | Encounter Summary ---
Author Organization [facility] Address [address] [place] [address] Care Team Providers Care Soft Mud Molder Name Role Phone Guerrero Middleton PA-C Primary Care Provide r Reason for Visit * Reason Onset Date Comments Results 05/14/2018 bmp, lipid panel Encounter Details Date Type Department Care Team (Late Contact Info) Description 05/14/2018 Telephone [facility] [place] [address] [place] [address] Marlys Mayer MD [address] [place] [address] Results (bmp, lipid panel) Social History Tobacco Use Types Packs/Day [...] Telephone Encounter - Alexandra Kahn RN - 05/14/2018 4:57 PM DIRECTOR OF CONSULTING SERVICES Routed and texted lipid panel and bmp results to Dr. Mayer. Dr. Mayer texted back that she is aware of high triglycerides CTOR OF CONSULTING SERVICES documented in this encounter Plan of Treatment Upcoming Encounters Date Type Department Care Team (Late st Contact Info) Description 09/14/2024 3:00 PM CDT Office Visit [facility] - [place] [address] [place] [address] Marlys Mayer MD [address] [place] [address] documented as of this encounter Visit Diagnoses Not on filedocumented in this encounter Care Teams Soft Mud Molder Relationship Specialty Start Date End Date Guerrero Middleton PA-C PCP - General Physician Career Technical Counselor 02/13/18 documented as of this encounter
--- OUTSIDE RECORDS SUMMARY | 2024-05-03 20:46 | XMS_ITS | Encounter Summary ---
Author Organization [facility] Address [address] [place] [address] Care Team Providers Care Report Specialist Name Role Phone Guerrero Middleton PA-C Primary Care Provide r Reason for Visit * Reason Onset Date Comments pt had bw at lab [facility] 04/03/2018 Encounter Details Date Type Department Care Team (Late st Contact Info) Description 04/03/[address] [facility] At [facility] [address] [place] [address] Marlys Mayer MD [address] [place] [address] [address] [place] [address] pt had bw at lab 3[facility] Social History Tobacco Use Types Packs/Day Years [...] Telephone Encounter - Tita Jessica RMA - 04/04/2018 10:39 AM KENNEL HELPER Records received and scanned. EL HELPER * Telephone Encounter - Tita Jessica RMA - 04/03/2018 4:42 PM KENNEL HELPER Spoke to customer service representative teller at [facility] and they will send the results 1st thing in the morning. EL HELPER * Telephone Encounter - Betty House - 04/03/2018 2:52 PM CST Pt had bw done at [facility] in [facility]. She said that [place] wanted it mali EL HELPER documented in this encounter Plan of Treatment Upcoming Encounters Date Type Department Care Team (Late st Contact Info) Description 09/14/2024 3:00 PM CDT Office Visit [facility] Heart and Vascular - [place] [address] [place] [address] Marlys Mayer MD [address] [place] [address] documented as of this encounter Visit Diagnoses Not on filedocumented in this encounter Care Teams Report Specialist Relationship Specialty Start Date End Date Guerrero Middleton PA-C PCP - General Physician Training And Development Rep 02/13/18 documented as of this encounter
--- OUTSIDE RECORDS SUMMARY | 2024-05-03 20:46 | XMS_ITS | Encounter Summary ---
Author Organization [facility] Address [address] [place] [address] Care Team Providers Care Direct Casting Operator Name Role Phone Guerrero Middleton PA-C Primary Care Provide r Reason for Visit * Reason Onset Date Comments Labs?? Admission?? 03/07/2018 Encounter Details Date Type Department Care Team (Late st Contact Info) Description 03/07/2018 Telephone [facility] At [facility] [address] [place] [address] Marlys Mayer MD [address] [place] [address] [address] [place] [address] Labs?? Admission?? Social History Tobacco Use Types Packs/Day Years [...] Telephone Encounter - Alexandra Kahn RN - 03/07/2018 12:40 PM HAND MODEL Called patient, she reports having sharp pain in her abdomen that is getting worse and it is going to her back. Patient is also very nauseated. Called Dr. Mayer who advised patient should go to [facility], relayed message to patient who agreed to go. MODEL * Telephone Encounter - Natali Camarena - 03/07/2018 12:05 PM CST Patient called to see if the lab results have been read by Dr. Mayer. Will she be admitted? Not feeling well - actually feels worse. Please call patient at [phone]. Jabber to nurse MODEL documented in this encounter Plan of Treatment Upcoming Encounters Date Type Department Care Team (Late st Contact Info) Description 09/14/2024 3:00 PM CDT Office Visit [facility] Heart [facility] - [place] [address] [place] [address] Marlys Mayer MD [address] [place] [address] documented as of this encounter Visit Diagnoses Not on filedocumented in this encounter Care Teams Direct Casting Operator Relationship Specialty Start Date End Date Guerrero Middleton PA-C PCP - General Physician Wrapper Hands Sprayer 02/13/18 documented as of this encounter
--- OUTSIDE RECORDS SUMMARY | 2024-05-03 20:46 | XMS_ITS | Encounter Summary ---
Author Organization [facility] Address [address] [place] [address] Care Team Providers Care Psychological Stress Evaluator Name Role Phone Guerrero Middleton PA-C Primary Care Provide r Reason for Visit * Reason Onset Date Comments Question 05/20/2018 Encounter Details Date Type Department Care Team (Late st Contact Info) Description 05/20/2018 Telephone [facility] Heart and Vascular At [address] [place] [address] Marlys Mayer MD [address] [place] [address] [address] [place] [address] Question Social History Tobacco Use Types Packs/Day [...] Telephone Encounter - Alexandra Kahn RN - 05/20/2018 2:10 PM FEATHER DRYING MACHINE OPERATOR Returned residents call, transferred her to [phone], the office at [facility] to speak with Dr. Mayer HER DRYING MACHINE OPERATOR * Telephone Encounter - Thuy Campos - 05/20/2018 1:07 PM CST Judy (resident) called due to the patient being admitted into the hospital stating she wanted to speak with Dr. Mayer or the nurse in regards to the patient's triglycerides. Please contact Judy at [phone] thank you. HER DRYING MACHINE OPERATOR documented in this encounter Plan of Treatment Upcoming Encounters Date Type Department Care Team (Late st Contact Info) Description 09/14/2024 3:00 PM CDT Office Visit [facility] Heart and Vascular - [place] [address] [place] [address] Marlys Mayer MD [address] [place] [address] documented as of this encounter Visit Diagnoses Not on filedocumented in this encounter Care Teams Psychological Stress Evaluator Relationship Specialty Start Date End Date Guerrero Middleton PA-C PCP - General Physician Desktop Manager 02/13/18 documented as of this encounter
--- OUTSIDE RECORDS SUMMARY | 2024-05-03 20:46 | XMS_ITS | Encounter Summary ---
Author Organization [facility] Address [address] [place] [address] Care Team Providers Care Human Intelligence Name Role Phone Geurrero Middleton PA-C Primary Care Provide r Reason for Visit * Reason Onset Date Comments Discussion of patient 04/10/2018 Encounter Details Date Type Department Care Team (Late st Contact Info) Description 04/10/2018 Telephone [facility] At [facility] [address] [place] [address] Marlys Mayer MD [address] [place] [address] Discussion of patient Social History Tobacco Use Types Packs/Day Years [...] Telephone Encounter - Alexandra Kahn RN - 04/10/2018 2:51 PM GAME BREEDING FARM MANAGER Dr. Jacobs called back, transferred to Dr. Mayer BREEDING FARM MANAGER * Telephone Encounter - Alexandra Kahn RN - 04/10/2018 2:15 PM GAME BREEDING FARM MANAGER Returned Dr. Jacobs's call left direct call back number BREEDING FARM MANAGER * Telephone Encounter - Migue Natali Mccray - 04/10/2018 2:[address] Reynaldo hunt/Kasai called to speak to Dr. Mayer in regards to this patient. Please call Dr. Jacobs at [phone]. Thank you BREEDING FARM MANAGER documented in this encounter Plan of Treatment Upcoming Encounters Date Type Department Care Team (Late st Contact Info) Description 09/14/2024 3:00 PM CDT Office Visit [facility] - [facility] [place] [address] [place] [address] Marlys Mayer MD [address] [place] [address] documented as of this encounter Visit Diagnoses Not on filedocumented in this encounter Care Teams Human Intelligence Relationship Specialty Start Date End Date Guerrero Middleton PA-C PCP - General Physician Architectural Intern 02/13/18 documented as of this encounter
--- OUTSIDE RECORDS SUMMARY | 2024-05-03 20:46 | XMS_ITS | Encounter Summary ---
Author Organization [facility] Address [address] [place] [address] Care Team Providers Care Labor And Employment Paralegal Name Role Phone Guerrero Middleton PA-C Primary Care Provide r Reason for Visit * Reason Comments Thyroid Problem Encounter Details Date Type Department Care Team (Late st Contact Info) Description 04/25/2018 9:30 AM SHOP FITTER Office Visit [facility] [address] [place] [address] Blake Rudd MD NO ADDRESS [...] Sign Reading Time Taken Comments Blood Pressure 133/89 04/25/2018 9:16 AM SHOP FITTER Pulse 113 04/25/2018 9:16 AM SHOP FITTER Temperature - - Respiratory Rate - - Oxygen Saturation - - Inhaled Oxygen Concentration - - Weight 89.8 kg (198 lb) 04/25/2018 9:16 AM SHOP FITTER Height 162.6 cm (5' 4 ) 04/25/2018 9:16 AM SHOP FITTER Body Mass Index 33.99 04/25/2018 9:16 AM SHOP FITTER documented in this encounter Progress Notes * Blake Rudd MD - 04/25/2018 9:30 AM CST [facility] PCP: Guerrero Middleton PA-C NAME: Casandra [...] feet. Pertinent Endocrine ROS: + per HPI Review of Systems: Gen: denies fever chills [...] systems negative in detail Medications: Current Outpatient Prescriptions Medication Sig Dispense Refill ??? oxyCODONE-acetaminophen (PERCOCET) 5-325 mg tablet Take 1 Tablet by mouth every 4 hours as needed for Pain, Severe. Max Daily Amount: 6 Tablets 10 Tablet 0 ??? ondansetron (ZOFRAN ODT) 4 mg Tablet, Rapid Dissolve Dissolve 1 Tablet on top of tongue,then swallow with saliva every 6 hours as needed for nausea/vomiting. 30 Tablet 0 ??? hyoscyamine 0.125 mg Tablet, Sublingual Place 1 Tablet under tongue every 6 hours as needed forSpasm. 30 Tablet 0 ??? levothyroxine 200 mcg tablet [...] tablet Take 100 mg by mouth. ??? insulin aspart protamine-aspart (NovoLOG MIX 70-30) 100 unit/mL (70-30) pen syringe Inject by subcutaneous injection 12 units breakfast 14 units lunch 20 units dinner Also with sliding scale. ??? [id number]-Fish Oil [id number] Capsule Take 2 Caplets by mouth 2 times daily. 120 Capsule 3 ??? sennosides (SENOKOT) 8.6 mg tablet Take 1 Tablet by mouth 2 times daily. 30 Tablet 0 ??? hydrocortisone 1 % Ointment Apply to affected area 2 times daily. 28 Gram 0 ??? spironolactone (ALDACTONE) 25 mg tablet Take 25 mg by mouth daily. ??? rosuvastatin (CRESTOR) 20 mg tablet Take 20 mg by mouth daily at bedtime. ??? niacin (NIACOR) 500 mg tablet Take 500 mg by mouth 2 times daily. ??? metFORMIN (GLUCOPHAGE) 500 mg tablet Take 500 mg by mouth 2 times daily with meals. ??? LORazepam (ATIVAN) 1 mg tablet Take 1 mg by mouth 2 times daily as needed for Anxiety . ??? citalopram (CeleXA) 40 mg tablet Take 40 mg by mouth daily at bedtime. ??? fenofibrate (LOFIBRA) 160 mg Oral Tab Take 1 Tab by mouth daily. 90 Tab 0 No current facility-administered medications for this visit. Social History: Social History Social History ??? Marital status: Spouse name: N/A ??? Number of children: N/A ??? Years of education: N/A Occupational History ??? [employer] Social History Main Topics ??? Smoking status: Current Every Day Smoker Packs/day: 1.00 Years: 18.00 Types: Cigarettes ??? Smokeless tobacco: Never Used Comment: nicotine patch requested ??? Alcohol use No ??? Drug use: No ??? Sexual activity: Yes Partners: Male Other Topics Concern ??? Not on file Social History Narrative Merged History Encounter Family History: Family History Problem Relation Age [...] ??? Hypothyroidism ??? Metabolic syndrome 05/15/2011 ??? PCOS (polycystic ovarian syndrome) 05/15/2011 Past Surgical History: Procedure Laterality Date ??? HX APPENDECTOMY ??? HX HYSTERECTOMY partial due to endometriosis 2006 ??? [place] ESOPHAGOGASTRODUODENOSCOPY TRANSORAL DIAGNOSTIC N/A 03/08/2018 ESOPHAGOGASTRODUODENOSCOPY performed by Ceasar Vega MD at [facility] Physical Findings: No results found for this visit on 04/25/18. Wt Readings from Last 3 Encounters: 04/25/18 89.8 kg (198 lb) 04/14/18 91.6 kg (201 lb 14.4 oz) 04/02/18 90.7 kg (200 lb) Physical Exam: BP 133/89 Pulse (!) 113 Ht 5' 4 (1.626 m) Wt 89.8 kg (198 lb) BMI 33.99 kg/m?? GEN: well-nourished, NAD HEENT: normocephalic, autramatic; sclera anicteric NECK: thyroid normal in size and texture with no palpable nodule CV: RRR, no m/r/g; no LE edema, DP and PT pulsus present b/l RESP: CTAB ABD: s/nt/nd NEURO: A&O, nl gait SKIN: warm and dry FEET: nl sensation to 10g monofilament testing, nails without dystrophic changes, no calluses or other lesions present, ankle reflex present b/l LYMPH: no cervical LAD Lab: Lab Results Component Value Date/Time SODIUM 144 04/14/2018 03:51 AM POTASSIUM 2.8 (L) 04/14/2018 03:51 AM CHLORIDE 103 04/14/2018 03:51 AM CO2 29 04/14/2018 03:51 AM CALCIUM 9.0 04/14/2018 03:51 AM BUN <2 (L) 04/14/2018 03:51 AM CREATININE 0.58 04/14/2018 03:51 AM GLUCOSE 97 04/14/2018 03:51 AM TOTAL PROTEIN 7.4 04/09/2018 07:26 PM ALBUMIN 4.3 04/09/2018 07:26 PM BILIRUBIN TOTAL 0.2 (L) 04/09/2018 07:26 PM ALKALINE PHOSPHATASE 75 04/09/2018 07:26 PM AST <5 04/09/2018 07:26 PM ALT <5 04/09/2018 07:26 PM Lab Results Component Value Date/Time CHOLESTEROL 158 04/12/2018 06:17 AM HDL 16 (L) 04/12/2018 06:17 AM LDL CALCULATED 04/12/2018 06:17 AM Comment: Calculated LDL is not accurate when the Triglyceride value exceeds 400. LDL CHOLESTEROL, DIRECT 110 08/10/2011 07:21 AM TRIGLYCERIDE 280 (H) 04/14/2018 03:51 AM Lab Results Component Value Date/Time WBC 6.1 04/14/2018 03:51 AM HEMOGLOBIN 11.5 (L) 04/14/2018 03:51 AM HEMATOCRIT 35.4 (L) 04/14/2018 03:51 AM PLATELETS 167 04/14/2018 03:51 AM MCV 91.7 04/14/2018 03:51 AM Lab Results Component Value Date/Time HEMOGLOBIN A1C 8.7 (H) 03/08/2018 05:15 AM Lab Results Component Value Date/Time TSH 14.07 (H) 03/06/2018 03:01 PM Assessment/Plan: 1. Type 2 diabetes mellitus with hyperglycemia, with long-term current use of insulin Poorly controlled based on reported glucoses and A1C. Discussed the importance of yearly eye exams.She is overdue. For now we will plan to increase her prandial insulin. We will start by increasing each prandial dose by 2 units. She was sent in a blood glucose log in 1 week for further titration of her regimen. She does have a CGM and may benefit from a pump in the future. She needs improved glycemic control to further assist with her triglyceride lowering. - MICROALBUMIN/CREATININE RATIO, RANDOM UR; Future 2. Acquired hypothyroidism Last TSH was elevated. She should continue 200 mcg levpothyroxine daily. Will repeat labs. - TSH; Future - T4 FREE; Future 3. Hypertriglyceridemia In the past, she has had elevations of triglycerides to nearly 3000. She does have a history of pancreatitis in the setting. She was recently treated with plasmapheresis. Triglycerides on discharge were in the 200s. She had resolution of her pain. For now, she should continue her current regimen offenofibrate, niacin, fish oil, and Crestor. We will repeat a fasting lipid panel. We will need to improve her A1c control. She should adhere to a strict low-fat low carbohydrate diet. - LIPID PANEL; Future 4. Pancreatitis, recurrent We need to improve her diabetes control and TG levels in an effort to prevent recurrence. RTC: 3mo Patient agrees with plan and verbalizes understanding. Thank you for allowing me to participated in the care of this patient. Please feel free to contact me with any questions. Blake Rudd MD PhD FITTER documented in this encounter Plan of Treatment Upcoming Encounters Date Type Department Care Team (Late st Contact Info) Description 09/14/2024 3:00 PM CDT Office Visit [facility] - [facility] [address] [place] [phone] Marlys Mayer MD [address] [place] [address] Scheduled Orders Name Type Priority Associated Diagnoses Orde r Schedule MICROALBUMIN/CREATININ E RATIO, RANDOM UR Lab Routine Type 2 diabetes mellitus with hyperglycemia, with long-term current use of insulin Expected: 04/25/2018, Expires: 04/25/2019 documented as of this encounter Visit Diagnoses Diagnosis Type 2 diabetes mellitus with hyperglycemia, with long-term current use of insulin- Primary Acquired hypothyroidism Unspecified hypothyroidism Hypertriglyceridemia Pure hyperglyceridemia Pancreatitis, recurrent Chronic pancreatitis documented in this encounter Care Teams Labor And Employment Paralegal Relationship Specialty Start Date End Date Guerrero Middleton PA-C PCP - General Physician Clinical Program Director 02/13/18 documented as of this encounter
--- OUTSIDE RECORDS SUMMARY | 2024-05-03 20:46 | XMS_ITS | Encounter Summary ---
Author Organization [facility] Address [address] [place] [address] Care Team Providers Care Retarder Operator Name Role Phone Guerrero Middleton PA-C Primary Care Provide r Encounter Details Date Type Department Care Team (Late Contact Info) Description 04/22/2018 Orders Only [facility] At [place] [address] [place] [address] Provider, Abstract NO ADDRESS ON FILE Social [...] Upcoming Encounters Date Type Department Care Team ([facility] Contact Info) Description 09/14/2024 3:00 PM CDT Office Visit [facility] - [facility] [address] [place] [address] Marlys Mayer MD [address] [place] [address] documented as of this encounter Procedures Procedure Name Priority Date/Time Associated Diagnosis Comments [facility] MISCELLANEOUS TEST Routine 04/03/2018 documented in this encounter Results * [facility] MISCELLANEOUS TEST (04/03/2018) Other, specify Abstract Provider CHEMISTRY ORDERABLES [facility] CLIA #[id number] [address] [address] documented in this encounter Visit Diagnoses Not on filedocumented in this encounter Care Teams Retarder Operator Relationship Specialty Start Date End Date Guerrero Middleton PA-C PCP - General Physician Psychiatric Nursing Aide 02/13/18 documented as of this encounter
--- OUTSIDE RECORDS SUMMARY | 2024-05-03 20:46 | XMS_ITS | Encounter Summary ---
Author Organization [facility] Address [address] [place] [address] Care Team Providers Care Logistics Technician Name Role Phone Guerrero Middleton PA-C Primary Care Provide r Encounter Details Date Type Department Care Team (Late Contact Info) Description 05/14/2018 Orders Only [facility] At [address] [place] [phone] Marlys Mayer MD [address] [place] [address] [address] [place], [place] [id number] Social History Tobacco Use Types Packs/Day Years [...] Description 09/14/2024 3:00 PM CDT Office Visit [facility] - [facility] [phone] [facility] [address] [place] [address] Marlys Mayer MD [address] [place] [address] [address] [place], [place] [id number] documented as of this encounter Procedures Procedure Name Priority Date/Time Associated Diagnosis Comments [facility] MISCELLANEOUS TEST Routine 05/12/2018 documented in this encounter Results * [facility] MISCELLANEOUS TEST (05/12/2018) Other, specify Marlys Mayer MD CHEMISTRY ORDERABLES [facility] CLIA #[id number] [address] [address] documented in this encounter Visit Diagnoses Not on filedocumented in this encounter Care Teams Logistics Technician Relationship Specialty Start Date End Date Guerrero Middleton PA-C PCP - General Physician Tube Test Technician 02/13/18 documented as of this encounter
--- OUTSIDE RECORDS SUMMARY | 2024-05-03 20:46 | XMS_ITS | Encounter Summary ---
Author Organization [facility] Address [address] [place] [address] Care Team Providers Care Development Educator Name Role Phone Guerrero Middleton PA-C Primary Care Provide r Encounter Details Date Type Department Care Team (Latest Contact Info) Description 03/06/2018 2:58 PM METALLURGICAL ENGINEER - 03/06/2018 11:59 PM METALLURGICAL ENGINEER Hospital Encounter [facility] [address] [place] [id number] Marlys Mayer MD [address] [place] [address] Discharge Disposition: Home or Self Care Social [...] mg by mouth daily at bedtime . LORazepam (ATIVAN) 1 mg tablet Take 1 mg by mouth 2 times daily. 04/10/2018 clxl[address]-iclmhx-nrbnwzsx DR TING) 60-12-38 capsule Take by mouth 3 times daily. 04/10/2018 insulin glargine (LANTUS) 100 unit/mL injection Inject 35 Units by subcutaneous injection 2 times daily. 35 units in the AM 35 units in the PM 12/14/2019 niacin (NIACOR) 500 mg tablet Take 500 mg by mouth 2 times daily. 04/10/2018 pantoprazole (PROTONIX) 40 mg Tablet, Delayed Release (E.C.) Take 40 mg by mouth 2 times daily . 09/26/2023 [id number] OIL ORAL Take by mouth 4 times daily. 04/10/2018 insulin aspart protamine-aspart (NovoLOG MIX 70-30) 100 unit/mL (70-30) pen syringe Inject by subcutaneous injection 8 units breakfast 14 units lunch 18 units dinner Also with sliding scale. 06/02/2018 levothyroxine 200 mcg tablet Take 1 Tablet by mouth daily chemical engineering teacher. 30 Tablet 3 12/11/2017 04/10/2018 Bcjjy1-WsvM8-A98-E-FA-F bossman Oil [id number] uu-nr-rmi-mcg Capsule Take 2 Caplets by mouth 2 times daily. 120 Capsule 3 12/10/2017 08/03/2018 sennosides (SENOKOT) 8.6 mg tablet Take 1 Tablet by mouth 2 times daily. 30 Tablet 12/10/2017 05/16/2018 hydrocortisone 1 % Ointment Apply to affected area 2 times daily. 28 Gram 12/10/2017 05/16/2018 insulin glargine (LANTUS) 100 unit/mL injection Inject 10 Units by subcutaneous injection 2 times daily. 15 mL 12/10/2017 04/10/2018 traZODone (DESYREL) 50 mg tablet Take 50 mg by mouth daily at bedtime. 04/10/2018 spironolactone (ALDACTONE) 25 mg tablet Take 25 mg by mouth daily. 02/04/2019 rosuvastatin (CRESTOR) 20 mg tablet Take 20 mg by mouth daily at bedtime. 09/19/2023 pantoprazole (PROTONIX) 40 mg Tablet, Delayed Release (E.C.) Take 40 mg by mouth daily. 04/10/2018 niacin (NIACOR) 500 mg tablet Take 500 mg by mouth 2 times daily. 10/02/2018 metFORMIN (GLUCOPHAGE) 500 mg tablet Take 1,000 mg by mouth 2 times daily with meals . 06/05/2018 magnesium oxide (MAG-OX) 400 mg tablet Take 400 mg by mouth daily. 04/10/2018 LORazepam (ATIVAN) 1 mg tablet Take 1 mg by mouth 2 times daily as needed for Anxiety . 06/18/[address] afdzvno-qksgtj-uoathdij DR (CREON 12) 90-12-99 capsule Take by mouth 3 times daily after meals. 04/10/2018 fenofibrate nanocrystallized (TRICOR) 145 mg tablet Take 145 mg by mouth daily. 04/10/2018 citalopram (CeleXA) 40 mg tablet Take 40 mg by mouth daily at bedtime. 11/01/2020 levothyroxine (SYNTHROID) 137 mcg Oral tabletIndications:Unspe cified hypothyroidism Take 1 Tab by mouth daily chemical engineering teacher. TAKE WITHOUT FOOD 30 Tab 0 03/20/2013 03/09/2018 rosuvastatin (CRESTOR) 5 mg tablet Take 1 Tab by mouth daily at bedtime. 30 Tab 0 03/20/2013 03/09/2018 spironolactone (ALDACTONE) 100 mg Oral tablet Take 1 Tab by mouth daily. 30 Tab 2 09/04/2012 04/10/2018 fenofibrate (LOFIBRA) 160 mg Oral Tab Take 1 Tab by mouth daily. 90 Tab 0 09/04/2012 05/05/2020 metFORMIN (GLUCOPHAGE) 500 mg Oral tablet Take 1 Tab by mouth daily with supper. 90 Tab 2 05/21/2012 04/10/2018 citalopram (CELEXA) 40 mg Oral tablet Take 40 mg by mouth daily. 04/10/2018 ibuprofen (MOTRIN) 800 mg Oral tabletIndications:Metab olic syndrome,History of gestational diabetes,PCOS (polycystic ovarian syndrome),Adrenal mass,Familial combined hyperlipidemia,Hypothyr oidism Take 200 mg by mouth every 8 hours as needed . 03/09/2018 documented as of this encounter Plan of Treatment Upcoming Encounters Date Type Department Care Team (Late st Contact Info) Description 09/14/2024 3:00 PM CDT Office Visit [facility] Heart and Vascular - [facility] [address] [place] [address] Marlys Mayer MD [address] [place] [address] documented as of this encounter Procedures Procedure Name Priority Date/Time Associated Diagnosis Comments TSH Routine 03/06/2018 3:01 PM METALLURGICAL ENGINEER Metabolic syndrome Hypertriglyceridem ia LIPASE Routine 03/06/2018 3:01 PM METALLURGICAL ENGINEER Metabolic syndrome Hypertriglyceridem ia CK Routine 03/06/2018 3:01 PM METALLURGICAL ENGINEER Metabolic syndrome Hypertriglyceridem ia AMYLASE Routine 03/06/2018 3:01 PM METALLURGICAL ENGINEER Metabolic syndrome Hypertriglyceridem ia LIPID PANEL Routine 03/06/2018 3:01 PM METALLURGICAL ENGINEER Metabolic syndrome Hypertriglyceridem ia COMPREHENSIVE METABOLIC PANEL Routine 03/06/2018 3:01 PM METALLURGICAL ENGINEER Metabolic syndrome Hypertriglyceridem ia documented in this encounter Results * CK (03/06/2018 3:01 PM METALLURGICAL ENGINEER) Pathologist [facility] CK 88 20 - 180 U/L 03/06/2018 6:33 PM METALLURGICAL ENGINEER [facility] Blood Venipuncture / Unknown 03/06/2018 3:01 PM METALLURGICAL ENGINEER 03/06/2018 3:12 PM METALLURGICAL ENGINEER Marlys Mayer MD CHEMISTRY ORDERABLES [facility]# [id number] [address] [facility] [place] [address] * (ABNORMAL) LIPID PANEL (03/06/2018 3:01 PM METALLURGICAL ENGINEER) CHOLESTEROL 703(H) <200 mg/dL 03/06/2018 6:40 PM METALLURGICAL ENGINEER [facility] TRIGLYCERIDE 612(H) <150 mg/dL 03/06/2018 6:40 PM [facility] HDL 14(L) 40 - 59 mg/dL 03/06/2018 6:40 PM METALLURGICAL ENGINEER [facility] LDL CALCULATED <100 mg/dL 03/06/2018 6:40 PM METALLURGICAL ENGINEER [facility] Comment:Calculated LDL is no t accurate when the Triglyceride value exceeds 400. NON-HDL CHOLESTEROL 689(H) <130 mg/dL 03/06/2018 6:40 PM METALLURGICAL ENGINEER [facility] Blood Venipuncture / Unknown 03/06/2018 3:01 PM METALLURGICAL ENGINEER 03/06/2018 3:12 PM METALLURGICAL ENGINEER Narrative [facility] - 03/06/2018 6:40 PM METALLURGICAL ENGINEER TOTAL CHOLESTEROL ??mg/dL ??Desirable <200 ??Borderline high [...] Mayer MD CHEMISTRY ORDERABLES Performing Organization Address City/[facility]/ZIP Co de Phone Number [facility] CLNM# [id number] [address] [place] [address] * (ABNORMAL) TSH (03/06/2018 3:01 PM METALLURGICAL ENGINEER) TSH 14.07(H) 0.27 - 4.20 uIU/mL 03/06/2018 7:15 PM METALLURGICAL ENGINEER [facility] Blood Venipuncture / Unknown 03/06/2018 3:01 PM METALLURGICAL ENGINEER 03/06/2018 3:12 PM METALLURGICAL ENGINEER Marlys Mayer MD CHEMISTRY ORDERABLES Performing Organization Address [facility]/State/ZIP Co de Phone Number [facility]# [id number] [address] [place] [address] * LIPASE (03/06/2018 3:01 PM METALLURGICAL ENGINEER) LIPASE 31 13 - 60 U/L 03/06/2018 6:33 PM METALLURGICAL ENGINEER [facility] Blood Venipuncture / Unknown 03/06/2018 3:01 PM METALLURGICAL ENGINEER 03/06/2018 3:12 PM METALLURGICAL ENGINEER Marlys Mayer MD CHEMISTRY ORDERABLES Performing Organization Address [facility]/ZIP Co de Phone Number [facility] [id number] [address] [facility] [place] [address] * AMYLASE (03/06/2018 3:01 PM METALLURGICAL ENGINEER) AMYLASE 68 28 - 100 U/L 03/06/2018 6:33 PM METALLURGICAL ENGINEER [facility] Blood Venipuncture / Unknown 03/06/2018 3:01 PM METALLURGICAL ENGINEER 03/06/2018 3:12 PM METALLURGICAL ENGINEER Marlys Mayer MD CHEMISTRY ORDERABLES Performing Organization Address [facility] Co de Phone Number [facility]# [id number] [address] [place] [address] * (ABNORMAL) COMPREHENSIVE METABOLIC PANEL (03/06/2018 3:01 PM METALLURGICAL ENGINEER) Pathologist [facility] SODIUM 131(L) 136 - 145 mmol/L 03/06/2018 7:57 PM [facility] POTASSIUM 4.5 3.5 - 5.0 mmol/L 03/06/2018 7:57 PM [facility] Comment: Slightly hemolyzed. Result may be falsely elevated. CHLORIDE 92(L) 98 - 107 mmol/L 03/06/2018 7:57 PM [facility] CO2 24 22 - 29 mmol/L 03/06/2018 7:57 PM [facility] CALCIUM 9.4 8.6 - 10.2 mg/dL 03/06/2018 7:57 PM METALLURGICAL ENGINEER [employer] [facility] - [facility] BUN 10 6 - 20 mg/dL 03/06/2018 7:57 PM [facility] CREATININE 0.47(L) 0.51 - 0.95 mg/dL 03/06/2018 7:57 PM [facility] GLUCOSE 148(H) 74 - 99 mg/dL 03/06/2018 7:57 PM [facility] - [facility] TOTAL PROTEIN 7.5 6.7 - 8.6 g/dL 03/06/2018 7:57 PM [facility] - [facility] ALBUMIN 4.5 3.5 - 5.2 g/dL 03/06/2018 7:57 PM [facility] BILIRUBIN TOTAL <0.2(L) 0.3 - 1.2 mg/dL 03/06/2018 7:57 PM [facility] ALKALINE PHOSPHATASE 61 35 - 104 U/L 03/06/2018 7:57 PM [facility] AST 19 <33 U/L 03/06/2018 7:57 PM [facility] Comment: Cleared of chylomicrons. Hemolysis present. Result may be falsely elevated. ALT 14 <34 U/L 03/06/2018 7:57 PM [facility] Comment:Cleared of chylomicr ons. GFR >60 >=60 mL/min/1.7 3 sq meter 03/06/2018 7:57 PM [facility] Comment: eGFR has not been validated [...] GFR, >60 >=60 mL/min/1.7 3 sq meter 03/06/2018 7:57 PM [facility] ANION GAP 15 8 - 16 mmol/L 03/06/2018 7:57 PM METALLURGICAL ENGINEER [facility] Blood Venipuncture / Unknown 03/06/2018 3:01 PM METALLURGICAL ENGINEER 03/06/2018 3:12 PM METALLURGICAL ENGINEER Narrative [facility] - 03/06/2018 7:57 PM METALLURGICAL ENGINEER Samples containing indocyanine green cause interferences on Total and/or Direct Bilirubin and must not be measured. Marlys Mayer MD CHEMISTRY ORDERABLES [facility]# [id number] [address] [place] [address] documented in this encounter Visit Diagnoses Diagnosis Metabolic syndrome Dysmetabolic Syndrome X Hypertriglyceridemia Pure hyperglyceridemia documented in this encounter Care Teams Development Educator Relationship Specialty Start Date End Date Guerrero Middleton PA-C PCP - General Physician Supervisor Lump Room 02/13/18 documented as of this encounter
--- OUTSIDE RECORDS SUMMARY | 2024-05-03 20:46 | XMS_ITS | Encounter Summary ---
Author Organization [facility] Address [address] [place] [address] Care Team Providers Care Call Worker Name Role Phone Guerrero Middleton PA-C Primary Care Provide r Reason for Referral * Eval and Treat (Routine) - Closed Specialty Diagnoses / Procedures Referred By Contac t Referred To Contact Nutrition Diagnoses Hypertriglyceridemia Type 2 diabetes mellitus without complication, with long-term current use of insulin HENDRIX (dyspnea on exertion) Marlys Mayer MD [address] [place] [address] Tyra Paz, RD [address] [place] [address] Referral ID Status Reason Start Date Expiration Date V isits Requested Visits Authorized [id number] Closed CRS To Schedule (STL) 05/14/2018 05/15/2019 1 1 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 Reason for Visit * Reason Comments Follow Up Hyperlipidemia Encounter Details Date Type Department Care Team (Latest Contact Info) Description 05/14/2018 11:30 AM MOTO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 Office Visit [facility] Heart and Vascular At [facility] [address] [place] [address] Marlys Mayer MD [address] [place] [address] Hypertriglyceridemia (Primary Dx); Type 2 diabetes mellitus without complication, with long-term current use of insulin; HENDRIX (dyspnea on exertion) Social History Tobacco Use Types Packs/Day Years [...] Sign Reading Time Taken Comments Blood Pressure 108/62 05/14/2018 11:45 AM MOTO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 Pulse 99 05/14/2018 11:45 AM MOTO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 Temperature - - Respiratory Rate - - Oxygen Saturation 98% 05/14/2018 11:45 AM MOTO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 Inhaled Oxygen Concentration - - Weight 90.3 kg (199 lb) 05/14/2018 11:45 AM MOTO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 Height 162.6 cm (5' 4 ) 05/14/2018 11:45 AM MOTO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 Body Mass Index 34.16 05/14/2018 11:45 AM MOTO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 documented in this encounter Progress Notes * Marlys Mayer MD - 05/14/2018 12:11 PM CST [facility]ULAR Follow-up Visit Casandra Jones, a 42 y.o. female returns for follow-up of these problems: ICD-10-CM ICD-9-CM 1. Hypertriglyceridemia E78.1 272.1 2. Type 2 diabetes mellitus without complication, with long-term current use of insulin E11.9 250.00 Z79.4 V58.67 3. HENDRIX (dyspnea on exertion) R06.09 786.09 Since last visit 04/02/2018: Hospitalizations: Hospitalized at [facility] 04/09 to 04/14/19 for acute pancreatitis. She underwent plasmapharesis with improvement in symptoms and triglycerides in 300s at time of discharge. She reportsthat she has been following a low fat diet ( <10 gm fat). 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 Procedures or surgeries: Abdominal CT 04/10 consistent with acute pancreatitis Cardiac symptoms: C/o HENDRIX.Denies chest pain, PND, orthopnea, edema,palpitations, syncope or near syncope. She denies abdominal pain. Medications: No new medications.Reports compliance with meds Side effects: None reported Current Outpatient Prescriptions Medication Sig Dispense Refill ??? ondansetron (ZOFRAN ODT) 4 mg Tablet, [...] units dinner Also with sliding scale. ??? [id number]-E-FA-Fish Oil [phone] yo-ia-wqi-mcg Capsule Take 2 Caplets by mouth 2 [...] Tab by mouth daily. 90 Tab 0 ??? [DISCONTINUED] oxyCODONE-acetaminophen (PERCOCET) 5-325 mg tablet Take 1 Tablet by mouth every 4 hours as needed for Pain, Severe. Max Daily Amount: 6 Tablets 10 Tablet 0 No current facility-administered medications for this [...] HYSTERECTOMY partial due to endometriosis 2006 ??? IN ESOPHAGOGASTRODUODENOSCOPY TRANSORAL DIAGNOSTIC N/A 03/08/2018 ESOPHAGOGASTRODUODENOSCOPY performed by Ceasar Vega MD at [facility] Social History Social History ??? Marital status: Spouse name: N/A ??? Number of children: N/A ??? Years of education: N/A Occupational History ??? [employer] Social History Main Topics ??? Smoking [...] Neuro/psych-without sx of depression Physical Exam BP 108/62 Pulse 99 Ht 5' 4 (1.626 m) Wt 90.3 kg (199 lb) SpO2 98% ? No BMI 34.16 kg/m?? Wt Readings from Last 3 Encounters: 05/14/18 90.3 kg (199 lb) 04/25/18 89.8 kg (198 lb) 04/14/18 91.6 kg (201 lb 14.4 oz) General-No acute distress, alert, oriented Neck- without JVD, thyroid not enlarged Lungs-Clear to auscultation CV-Regular rate and rhythm, without murmer, gallop or rub. Without carotid bruits . Abdomen-soft, nontender without organomegaly Extremeties-Without edema. Distal pulses normal. Normal range of motion. Normal muscle strength Lab Results Component Value Date/Time CHOLTOT 158 04/12/2018 06:17 AM CHOLTOT 388 (H) 04/11/2018 07:01 AM CHOLTOT 635 (H) 03/08/2018 05:15 AM HDL 16 (L) 04/12/2018 06:17 AM HDL 04/11/2018 07:01 AM Comment: Measured HDL is not accurate when the Triglyceride value exceeds 1200. HDL 03/08/2018 05:15 AM Comment: Measured HDL is not accurate when the Triglyceride value exceeds 1200. LDLCALC 04/12/2018 06:17 AM Comment: Calculated LDL is not accurate when the Triglyceride value exceeds 400. LDLCALC 04/11/2018 07:01 AM Comment: Calculated LDL is not accurate when the Triglyceride value exceeds 400. LDLCALC 03/08/2018 05:15 AM Comment: Calculated LDL is not accurate when the Triglyceride value exceeds 400. LDLDIRECT 110 08/10/2011 07:21 AM TRIGLYCERIDE 280 (H) 04/14/2018 03:51 AM TRIGLYCERIDE 289 (H) 04/13/2018 05:20 AM TRIGLYCERIDE 567 (H) 04/12/2018 06:17 AM Impression ICD-10-CM ICD-9-CM 1. Hypertriglyceridemia E78.1 272.1 2. Type 2 diabetes mellitus without complication, with long-term current use of insulin E11.9 250.00 Z79.4 V58.67 3. HENDRIX (dyspnea on exertion) R06.09 786.09 Plan Intensify TLC efforts - weight loss strongly encuraged Medications: Continue current medications Diagnostic Tests: Stress echo Follow-up: Next OV in one month sooner if new or worsening cardiac symptoms ED for new/worsening cardiac symptoms or abdominal pain 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 * Tita Jessica RMA - 05/14/2018 11:55 AM CST Casandra Jones states that she needs a letter stating what her diagnosis is, how it affects her, andhow it prevents you from working. 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 * Tita Jessica RMA - 05/14/2018 11:44 AM CST Follow Up and Hyperlipidemia Casandra is here for Lipid Clinic office visit. Last Lipid/APO Testin05/12/2018 Casandra denies any cardiac complaints at this time. 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 documented in this encounter Plan of Treatment Upcoming Encounters Date Type Department Care Team (Late st Contact Info) Description 09/14/2024 3:00 PM CDT Office Visit [facility] Heart and Vascular - [facility] [address] [place] [address] Marlys Mayer MD [address] [place] [address] Scheduled Referrals Name Type Priority Associated Diagnoses Orde r Schedule AMB REFERRAL TO EVENT PRODUCER Outpatient Referral Routine Hypertriglyceridemia Type 2 diabetes mellitus without complication, with long-term current use of insulin HENDRIX (dyspnea on exertion) Ordered: 05/14/2018 documented as of this encounter Results * (ABNORMAL) BASIC METABOLIC PANEL (05/14/2018 12:48 PM MOTO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) SODIUM 131(L) 136 - 145 mmol/L 05/14/2018 2:10 PM MOTO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 [employer] [facility]AT[facility] SERVICES - [facility] POTASSIUM 4.5 3.5 - 5.0 mmol/L 05/14/2018 2:10 PM MOTO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 [facility] CHLORIDE 90(L) 98 - 107 mmol/L 05/14/2018 2:10 PM MOTO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 [employer] LABORATORY SERVICES - [facility] CO2 24 22 - 29 mmol/L 05/14/2018 2:10 PM MOTO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 [facility]OR[facility]ORY SERVICES - [facility] CALCIUM 9.8 8.6 - 10.2 mg/dL 05/14/2018 2:10 PM MOTO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 [employer] LABORATORY SERVICES - . [place] BUN 9 6 - 20 mg/dL 05/14/2018 2:10 PM [facility] CREATININE 0.44(L) 0.51 - 0.95 mg/dL 05/14/2018 2:10 PM [facility] GLUCOSE 160(H) 74 - 99 mg/dL 05/14/2018 2:10 PM [facility] GFR >60 >=60 mL/min/1.7 3 sq meter 05/14/2018 2:10 PM [facility] [employer] [facility] Comment: eGFR has not been validated for [...] GFR, >60 >=60 mL/min/1.7 3 sq meter 05/14/2018 2:10 PM [facility] [employer] [facility] ANION GAP 17(H) 8 - 16 mmol/L 05/14/2018 2:10 PM [facility] [employer] [facility] Blood Venipuncture / Unknown 05/14/2018 12:48 PM MOTO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 05/14/2018 12:58 PM MOTO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 Marlys Mayer MD CHEMISTRY ORDERABLES [facility] [employer] [facility] [id number] [address] [facility] [place] [address] * (ABNORMAL) LIPID PANEL (05/14/2018 12:48 PM MOTO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) CHOLESTEROL 623(H) <200 mg/dL 05/14/2018 2:41 PM [facility] [employer] [facility] TRIGLYCERIDE 3,899(H) <150 mg/dL 05/14/2018 2:41 PM [facility] HDL 40 - 59 mg/dL 05/14/2018 2:41 PM [facility] Comment: Measured HDL is not accurate when the Triglyceride value exceeds 1200. LDL CALCULATED <100 mg/dL 05/14/2018 2:41 PM [facility] Comment:Calculated LDL is no t accurate when the Triglyceride value exceeds 400. NON-HDL CHOLESTEROL <130 mg/dL 05/14/2018 2:41 PM [facility] Comment:Non HDL Cholesterol cannot be calculated when the HDL value is suppressed. Blood Venipuncture / Unknown 05/14/2018 12:48 PM MOTO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 05/14/2018 12:58 PM [facility] - 05/14/2018 2:41 PM MOTO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 TOTAL CHOLESTEROL ??mg/dL ??Desirable <200 ??Borderline high [...] Panels (NCEP/AMA) Marlys Mayer MD CHEMISTRY ORDERABLES [facility] [id number] [address] [place] [address] documented in this encounter Visit Diagnoses Diagnosis Hypertriglyceridemia- Primary Pure hyperglyceridemia Type 2 diabetes mellitus without complication, with long-term current use of insulin HENDRIX (dyspnea on exertion) Other dyspnea and respiratory abnormality documented in this encounter Care Teams Call Worker Relationship Specialty Start Date End Date Guerrero Middleton PA-C PCP - General Physician [employer] Sales Representative 02/13/18 documented as of this encounter
--- OUTSIDE RECORDS SUMMARY | 2024-05-03 20:46 | XMS_ITS | Encounter Summary ---
Author Organization [facility] Address [address] [place] [address] Care Team Providers Care Clinical Nurse Educator Name Role Phone Guerrero Middleton PA-C Primary Care Provide r Reason for Visit * Reason Comments Abdominal Pain Ambulatory to ED wit h reports of I was thinking my triglycerides are up again, because I have a headache, pain in my stomach going in to my back, and aches all over. I don't know if it might be pancreatitis again. States she also has nausea and vomiting. * Auth/Cert Specialty Diagnoses / Procedures Referred By Tequila bowman Referred To Contact Emergency Medicine [facility] Emergency Dept [address] [place] [address] Referral ID Status Reason Start Date Expiration Date Visits Re quested Visits Authorized [id number] 1 1 Encounter Details Date Type Department Care Team (Late st Contact Info) Description 03/07/2018 4:50 PM ASSISTANT PASSENGER LOCOMOTIVE ENGINEER - 03/09/2018 3:00 PM [facility] Emergency [facility] Medicine [address] [place] [address] Pernell Lind MD [address] [facility] [place] [address] Almas Ortega MD [address] [facility] [address] [address] Pernell Tapia MD [address] [place] [address] Alize Morel DO [address] [place] [address] Hyponatremia Discharge Disposition: Home or Self Care Social [...] Sign Reading Time Taken Comments Blood Pressure 124/77 03/09/2018 12:14 PM ASSISTANT PASSENGER LOCOMOTIVE ENGINEER Pulse 73 03/09/2018 12:14 PM ASSISTANT PASSENGER LOCOMOTIVE ENGINEER Temperature 37.1 ??C (98.7 ??F) 03/09/2018 12:[address] Respiratory Rate 16 03/09/2018 12:14 PM ASSISTANT PASSENGER LOCOMOTIVE ENGINEER Oxygen Saturation 93% 03/09/2018 12:14 PM ASSISTANT PASSENGER LOCOMOTIVE ENGINEER Inhaled Oxygen Concentration - - Weight 86.2 kg (190 lb) 03/07/2018 10:09 PM ASSISTANT PASSENGER LOCOMOTIVE ENGINEER Height 162.6 cm (5' 4 ) 03/07/2018 10:09 PM ASSISTANT PASSENGER LOCOMOTIVE ENGINEER Body Mass Index 32.61 03/07/2018 10:09 PM ASSISTANT PASSENGER LOCOMOTIVE ENGINEER documented in this encounter Discharge Summaries * Alize Mroel DO - 03/09/2018 12:54 PM CST Images from the original note were not included. [facility] Adult Hospitalist Discharge Summary Linda Doss 42 y.o. female 1975 CSN: [id number] Date of Admission: 03/07/2018 Date of Discharge: 03/09/2018 Discharging Physician: Alize Morel DO LOS: 0 days PCP: No primary care provider on file. Activity: activity as tolerated. Dispo: home Diet: Regular diet Code Status at Discharge: FULL Wound Care: None needed 45 Minutes spent in the d/c process today. Admitting Dx and Chief Complaint Chief Complaint Patient presents with ??? Abdominal Pain Ambulatory to ED with reports of I was thinking my triglycerides are up again, because I have a headache, pain in my stomach going in to my back, and aches all over. I don't know if it might be pancreatitis again. States she also has nausea and vomiting. HPI by Dr. Tapia Patient is a 42 y.o. female with a past medical history of marked hypertriglyceridemia, pancreatitis anxiety with panic attacks, hypothyroidism, and metabolic syndrome presenting with abdominal pain. Patient reports that she has been having months long history of chronic abdominal pain which interm ittently gets severe. Patient reports no clear inciting factors and there is nothing that exacerbates it or alleviates it. Has some nausea. She describes it as a dull epigastric pain that wraps around her back but when it gets worse and feels sharp in nature. Patient reports that she also has some gastric reflux and her PCP recently went up on her Protonix dose to twice daily. She has a lot of burping as well. Patient says that she has been taking NSAIDs multiple times a week for about 2 years.She uses both Aleve and ibuprofen. ?? Of note in her past, the patient was recently admitted less than a month ago for the same pain. Although it was thought to be due to pancreatitis (which at one point required plasmapheresis for her hypertriglyceridemia) her lipase levels then and now are normal. 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 Her triglyceride levels are also lower than they were before. She is also on Creon. She told me that she has seen a board of education secretary at some point and was told that she has gastroparesis. BM normal consistency and appears pale per patient. Denies black tarry stools. Discharge Diagnoses and Relevant Hospital Course: Active Problems: Metabolic syndrome Hypothyroidism Tobacco use Hypertriglyceridemia Type 2 diabetes mellitus without complication, with long-term current use of insulin Hyponatremia Epigastric abdominal pain GERD (gastroesophageal reflux disease) Abdominal pain 1. Epigastric abdominal pain unclear etiology and significance -??No evidence of pancreatitis. -GI consult and upper scope unremarkable - stop narcotics - trial of levsin - symptoms were improved with this - given script for dc - d/w Dr. Vega - tolerating po well before dc, ok for dc with outpt fu ?GERD -unusual that she will still have burping and reflux symptoms despite being on Protonix twice daily. ?? -GI consulted - upper scope was fairly unremarkable today - ppi - tolerating po ?? 3. ?Hypertriglyceridemia -has had marked hypertriglyceridemia in the past with levels up to 2500requiring plasmapheresis. ??Unsure if this is contributing to her symptoms now. - her trig on 03/06 was 612 - her trig on 03/08 is 2,964 - restarted statin, fish oil, niacin, fibrate - continue all on dc as well as very low fat/dm diet - there is not indication for plasmapharesis or insulin gtt as there is NO acute pancreatitis - needs outpatient fu with her lipidologist and/or endocrine - synthroid adjusted - tsh 14 - synthroid adjusted - needs BS control outpatient - Hga1c 8.4 - D/w Dr. Mayer this admit - trig on dc 2339 - pt plans on fu with her lipidologist as well as endocrine as outpt ?? 4. ?Type 2 diabetes mellitus without complication, with long-term current use of insulin -on high dose insulin at home of Lantus along with scheduled lispro and sliding scale lispro -Lantus 20/20 while inpt - Sliding scale insulin - A1c 8.4 - outpt fu with Endocrine on dc 5. ?Hyponatremia - pseudohyponatremia due to triglycerides 6. ?Metabolic syndrome - pt going to fu with endocrine - outpatient Dr. Gates on dc 7. ? Hypothyroidism - tsh 14, increased synthroid to 200 mcg 8. ?Tobacco use Discharge medications and new prescriptions: Medication List START taking these medications hyoscyamine 0.125 mg Tablet, Sublingual Commonly known as: LEVSIN Place 1 Tablet under tongue every 6 hours as needed for Spasm. Signed by: Alize Morel, Quantity: 30 Tablet Refills: 0 omega-3 acid ethyl esters 1 gram Capsule Commonly known as: OMACOR,LOVAZA Take 4 Capsules by mouth 2 times daily with meals. Signed by: Alize Morel, Quantity: 60 Capsule Refills: 0 ondansetron 4 mg Tablet, Rapid Dissolve Commonly known as: ZOFRAN ODT Dissolve 1 Tablet on top of tongue,then swallow with saliva every 6 hours as needed for nausea/vomiting. Signed by: Alize Morel DO Quantity: 30 Tablet Refills: 0 CHANGE how you take these medications levothyroxine 200 mcg tablet Commonly known as: SYNTHROID What changed: ?? medication strength ?? how much to take ?? when to take this ?? additional instructions Take 1 Tablet by mouth daily without food in the morning 30 minutes before eating anything. Signed by: Alize Morel DO Quantity: 30 Tablet Refills: 0 CONTINUE taking these medications CeleXA 40 mg tablet Take 40 mg by mouth daily. Refills: 0 Generic drug: citalopram CREON 60-12-38 capsule Take by mouth 3 times daily. Refills: 0 Generic drug: fhxsufw-uwzebg-fgvbvqiv DR fenofibrate 160 mg Tablet Commonly known [...] 38 units in the PM. Refills: 0 LORazepam 1 mg tablet Commonly known as: ATIVAN Take 1 mg by mouth 2 times daily. Refills: 0 metFORMIN 500 mg tablet Commonly known as: GLUCOPHAGE Take 1 Tab by mouth daily with supper. Signed by: Prudence Gates MD Quantity: 90 Tab Refills: 2 niacin 500 mg tablet Commonly known as: NIACOR Take 500 mg by mouth 2 times daily. Refills: 0 [id number] OIL ORAL Take by mouth 4 times daily. Refills: 0 pantoprazole 40 mg Tablet, Delayed Release (E.C.) Commonly known as: PROTONIX Take 40 mg by mouth 2 times daily . Refills: 0 rosuvastatin 5 mg tablet Commonly known as: CRESTOR Take 4 Tablets (20 mg) by mouth daily at bedtime. Signed by: Alize Morel DO Quantity: 1 Tablet Refills: 0 spironolactone 100 mg tablet Commonly known as: ALDACTONE Take 1 Tab by mouth daily. Signed by: Prudence Gates MD Quantity: 30 Tab Refills: 2 traZODone 100 mg tablet Commonly known as: DESYREL Take 100 mg by mouth. Refills: 0 STOP taking these medications ALEVE 220 mg Tablet Generic drug: naproxen sodium ibuprofen 800 mg tablet Commonly known as: MOTRIN Where to Get Your Medications These medications were sent to [place] [address] [facility] [address] Hours: Saturday-Saturday: 8 a.m. - 8 p.m., Saturday: 9 a.m. - 5 p.m., Saturday: 10 a.m. - 2 p.m. ?? hyoscyamine 0.125 mg Tablet, Sublingual ?? levothyroxine 200 mcg tablet ?? omega-3 acid ethyl esters 1 gram Capsule ?? ondansetron 4 mg Tablet, Rapid Dissolve ?? rosuvastatin 5 mg tablet Consultants: IP CONSULT TO GI Brief Synopsis of Diagnostic Studies This Admission (Please see full report for details): ?? Ct a/p ?? Upper endoscopy Labs and Studies from this Hospitalization Needing Follow Up: ?? None Discharge Lab Data (Please note date of lab as some may have preceeded admission) Lab Results Component Value Date/Time WBC 5.3 03/09/2018 05:39 AM HEMOGLOBIN 12.1 03/09/2018 05:39 AM HEMATOCRIT 37.6 03/09/2018 05:39 AM PLATELETS 242 03/09/2018 05:39 AM SODIUM 137 03/09/2018 05:39 AM CHLORIDE 101 03/09/2018 05:39 AM POTASSIUM 3.8 03/09/2018 05:39 AM CO2 22 03/09/2018 05:39 AM BUN 5 (L) 03/09/2018 05:39 AM CREATININE 0.56 03/09/2018 05:39 AM GLUCOSE 85 03/09/2018 05:39 AM AST 14 03/09/2018 05:39 AM ALT 9 03/09/2018 05:39 AM Discharge Exam: BP 124/77 (BP Location: Left arm, Patient Position (BP): Lying left side) Pulse 73 Temp 98.7 ??F (37.1 ??C) (Oral) Resp 16 Ht 5' 4 (1.626 m) Wt 86.2 kg (190 lb) SpO2 93% ?No BMI 32.61 kg/m?? Last documented weight: Weight: 86.2 kg (190 lb) (03/07/182208) Physical Exam: General alert, cooperative, no distress, appears stated age Lungs clear to auscultation bilaterally Heart regular rate and rhythm, S1, S2 normal, no murmur, click, rub or gallop Abdomen soft, non-tender, without masses or organomegaly Extremities Normal, no edema Skin Skin color, texture, turgor normal. No rashes or lesions Discharge Condition: improving and stable for dc. Follow-up: You must follow up with No primary care provider on file. in NO MORE THAN [address] Moreno Gates STANT PASSENGER LOCOMOTIVE ENGINEER documented in this encounter Discharge Instructions * Discharge Instructions* Alize Morel DO - 03/09/2018 12:59 PM ASSISTANT PASSENGER LOCOMOTIVE ENGINEER Your discharging physician is Alize Morel DO and may be reached at [phone] for any questions or concerns until you see your doctor. FOLLOW-UP Follow up with Dr. Mayer in 1 Week(s). Follow up Dr. Gates 1 week Prescriptions given? Yes SIGNS AND SYMPTOMS TO REPORT Contact your health care provider if you experience any of the following symptoms: any numbness or tingling, increased dizziness or lightheadedness, increase in pain, persistent bleeding or drainage,shortness of breath or difficulty breathing, swelling in your hands, feet, ankles, or abdomen or unable to keep food or fluids [...] is not relieved by nitroglycerin. Smoking Exposure: [facility] encourages all patients to decrease risks associated with smoking and second hand smoke exposure. If you smoke you are advised to quit. Ask your health care provider for advice if you need assistance to stop smoking. Avoid second-hand smoke exposure and do not let people smoke in your home. Please call [phone], our pulmonary rehabilitation department, to learn more about options to reduce your risks. ACTIVITY Your activity level is: no restrictions, increase activity as tolerated and no smoking. You may return to work/school na. DIET Your diet is: Very Low fat, diabetic WOUND CARE For your wound/incision: na. STANT PASSENGER LOCOMOTIVE ENGINEER documented in this encounter Medications at Time of Discharge Medication Sig Dispensed Refills Start Date End Date traZODone (DESYREL) 100 mg tablet Take 100 mg by mouth daily at bedtime . ondansetron (ZOFRAN ODT) 4 mg Tablet, Rapid Dissolve Dissolve 1 Tablet on top of tongue,then swallow with saliva every 6 hours as needed for nausea/vomiting. 30 Tablet 03/09/2018 05/21/2018 rosuvastatin (CRESTOR) 5 mg tablet Take 4 Tablets (20 mg) by mouth daily at bedtime. 1 Tablet 03/09/2018 04/10/2018 hyoscyamine 0.125 mg Tablet, Sublingual Place 1 Tablet under tongue every 6 hours as needed for Spasm. 30 Tablet 03/09/2018 05/16/2018 levothyroxine 200 mcg tabletIndications:Hypot hyroidism Take 1 Tablet by mouth daily without food in the morning 30 minutes before eating anything. 30 Tablet 03/09/2018 08/28/2018 omega-3 acid ethyl esters (LOVAZA) 1 gram Capsule Take 4 Capsules by mouth 2 times daily with meals. 60 Capsule 03/09/2018 04/10/2018 LORazepam (ATIVAN) 1 mg tablet Take 1 mg by mouth 2 times daily. 04/10/2018 nrvmkwz-exwwmf-uwxfnebq DR (CREON) 60-12-38 capsule Take by mouth 3 times [...] by mouth 2 times daily . 09/26/2023 [id number] OIL ORAL Take by mouth 4 times daily. 04/10/2018 insulin aspart protamine-aspart (NovoLOG MIX 70-30) 100 unit/mL (70-30) pen syringe Inject by subcutaneous injection 8 units breakfast 14 units lunch 18 units dinner Also with sliding scale. 06/02/2018 levothyroxine 200 mcg tablet Take 1 Tablet by mouth daily speech therapist early intervention. 30 Tablet 3 12/11/2017 04/10/2018 [id number]-F bossman Oil [id number] mf-gj-sjr-mcg Capsule Take 2 Caplets by mouth 2 [...] daily as needed for Anxiety . 06/18/2020 svbyriq-jctexu-etebflqi (CRERUDI 12 60-12-38 capsule Take by mouth 3 times daily after meals. 04/10/2018 fenofibrate nanocrystallized (TRICOR) 145 mg tablet Take 145 mg by mouth daily. 04/10/2018 citalopram (CeleXA) 40 mg tablet Take 40 mg by mouth daily at bedtime. 11/01/2020 spironolactone (ALDACTONE) 100 mg Oral tablet Take [...] Take 40 mg by mouth daily. 04/10/2018 documented as of this encounter Progress Notes * Bibiana Rockwell NP - 03/09/2018 5:41 AM CST [facility] Called for: RN reporting blood glucose on the low end of normal. Patient is on a diabetic clear liquid diet POC blood sugar over the past 24 hours have been less than 100 with the most recent being 75. RN states patient is requiring apple juice to maintain her blood sugars at the current levels. Patient being treated for epigastric abdominal pain. Patient also being treated for hypertriglyceridemia and has required plasmapheresis in the past. GI was consulted and an EGD done with results noted below. RN inquiring if patient should have a continuous glucose orders added to her current IV regimen and is seeking clarification with hypoglycemia orders already in place. Last Recorded Vitals: BP 133/71 (BP Location: Left arm, Patient Position (BP): Lying right side) Pulse 69 Temp 97.9 ??F (36.6 ??C) (Oral) Resp 16 Ht 5' 4 (1.626 m) Wt 86.2 kg (190 lb) SpO2 95% ? No BMI 32.61 kg/m?? EGD 03/08/2018: Impression: - Granular mucosa in the esophagus. Biopsied. - Erythematous mucosa in the stomach. Biopsied. - Erythematous duodenopathy. - Normal examined duodenum. Documentation/Intervention/Outcome: Chart reviewed. -We will continue current regimen as glucose levels are within normal limits, albeit the low end ofnormal limits. Will defer any further changes to the primary care team. Please call back any time if I can be of further assistance. Bibiana Rockwell NP Try our new night ticket system for vHospitalist calls. Submit an eTicket STANT PASSENGER LOCOMOTIVE ENGINEER * Ailze Morel, - 03/08/2018 1:15 PM CST [facility] Adult Hospitalist Progress Note Admit Date: 03/07/2018 Date of Note: 03/08/2018, 1:15 PM LOS: 0 days Previous history of present illness and review of systems have been reviewed today as documented inthe H&P on 03/07/2018; medications, labs, studies, notes, orders and consults have been reviewed. I have reviewed the notes from admission. Subjective: C/o abd pain, npo currently for scope this am when seen Objective: BP 120/69 (BP Location: Left arm, Patient Position (BP): Supine) Pulse 64 Temp 98.2 ??F (36.8 ??C) (Oral) Resp 17 Ht 5' 4 (1.626 m) Wt 86.2 kg (190 lb) SpO2 94% ? No BMI32.61 kg/m?? Temp (24hrs), Av.9 ??F (36.6 ??C), Min:97.1 ??F (36.2 ??C), Max:98.4 ??F (36.9 ??C) Exam: Gen alert, cooperative, no distress, appears stated age Lungs clear to auscultation bilaterally Heart regular rate and rhythm, S1, S2 normal, no murmur, click, rub or gallop Abdomen soft, ttp luq. Bowel sounds normal. No masses, No organomegaly Extremities extremities normal, atraumatic, no cyanosis or edema Mental Status Alert, oriented Data Base: I have reviewed all new labs and studies resulted and pertinent ones are noted below Assessment/Plan of Actively Managed Problems 1. Epigastric abdominal pain unclear etiology and significance. Differential is somewhat wide. NSAID use is concerning. Also has reflux despite Protonix twice daily. No clear weight loss. Chylomicronemia? No evidence of pancreatitis. -GI consult and upper scope unremarkable - stop narcotics - trial of levsin - d/w Dr. Vega today ?? 2. GERD -unusual that she will still have burping and reflux symptoms despite being on Protonix twice daily. Non-acid reflux? Less likely malignancy. -GI consulted - upper scope was fairly unremarkable today - ppi reordered ?? 3. Hypertriglyceridemia -has had marked hypertriglyceridemia in the past with levels up to 2500 requiring plasmapheresis. Unsure if this is contributing to her symptoms now. - her trig on 03/06 was 612 - her trig on 03/08 is 2,964 - she states she has not eaten since 03/06 - unclear to me why these changes? - npo or at most diabetic CLD for now - repeat in am - get pt back on her statin, fish oil we do not have lovaza here), niacin, fenofibrate - there is not indication for plasmapharesis or insulin gtt as there is NO acute pancreatitis - needs outpatient fu with her lipidologist and/or endocrine - synthroid adjusted - tsh 14 - needs BS control outpatient - Hga1c 8.4 - D/w Dr. Mayer today ?? 4. Type 2 diabetes mellitus without complication, with long-term current use of insulin -on high dose insulin at home of Lantus along with scheduled lispro and sliding scale lispro -Lantus 20/20 - Sliding scale insulin - A1c 8.4 5. Hyponatremia - pseudohyponatremia due to triglycerides 6. Metabolic syndrome - consider ref to endocrine outpatient if not already 7. Hypothyroidism - tsh 14, increase synthroid to 200 mcg 8. Tobacco use DVT Prophylaxis - Enoxaparin Pettit catheter:absent Lines: Peripheral IV PT/OT:yes Current Code Status -Full Code Plan discussed with patient, questions answered. Current Planned Disposition - home once med stable which I anticipate will be completed Saturday Stable/Resolved Issues/Follow Up Needs na More than 45 minutes were spent in the care of this patient today; more than 50% was spent in discussion of expected course of disease, discussion of prognosis, discharge planning, coordination of care and discussion of lab and test results. Pager: [phone] Alize Morel DO STANT PASSENGER LOCOMOTIVE ENGINEER documented in this encounter H&P Notes * Pernell Tapia MD - 03/07/2018 11:12 PM CST [facility] Adult Hospitalist Admission H & P Patient Name: Linda Doss Primary Care Doctor: No primary care provider on file. Date of Admission: 03/07/2018 Date of Service: 03/07/2018 Chief Complaint: Abdominal pain HPI: Patient is a 42 y.o. female with a past medical history of marked hypertriglyceridemia, pancreatitis anxiety with panic attacks, hypothyroidism, and metabolic syndrome presenting with abdominal pain.Patient reports that she has been having months long history of chronic abdominal pain which intermi ttently gets severe. Patient reports no clear inciting factors and there is nothing that exacerbates it or alleviates it. Has some nausea. She describes it as a dull epigastric pain that wraps aroundher back but when it gets worse and feels sharp in nature. Patient reports that she also has some gastric reflux and her PCP recently went up on her Protonix dose to twice daily. She has a lot of burping as well. Patient says that she has been taking NSAIDs multiple times a week for about 2 years. She uses both Aleve and ibuprofen. Of note in her past, the patient was recently admitted less than a month ago for the same pain. Although it was thought to be due to pancreatitis (which at one point required plasmapheresis for her hypertriglyceridemia) her lipase levels then and now are normal. 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 Her triglyceride levels are also lower than they were before. She is also on Creon. She told me that she has seen a board of education secretary at some point and was told that she has gastroparesis. BM normal consistency and appears pale per patient. Denies black tarry stools. Past Medical History: Past Medical History: Diagnosis Date ??? Anxiety ??? Diabetes mellitus ??? Family history of diabetes mellitus 05/15/2011 ??? Family history of early CAD 05/15/2011 ??? High triglycerides ??? History of gestational diabetes 05/15/2011 ??? Hypothyroidism ??? Metabolic syndrome 05/15/2011 ??? PCOS (polycystic ovarian syndrome) 05/15/2011 Past Surgical History: Past Surgical History: Procedure Laterality Date ??? HX APPENDECTOMY ??? HX HYSTERECTOMY partial due to endometriosis 2006 Current Medications: Prior to Admission Medications Prescriptions Last Dose Informant Patient Reported? Taking? LORazepam (ATIVAN) 1 mg tablet Yes No Sig: Take 1 mg by mouth 2 times daily. [id number] OIL ORAL Yes No Sig: Take by mouth 4 times daily. vojolyg-gvrvod-cdbxiclq DR (CREON) 60-12-38 capsule Yes No Sig: Take by mouth 3 times daily. citalopram (CELEXA) 40 mg Oral tablet Yes No Sig: Take 40 mg by mouth daily. fenofibrate (LOFIBRA) 160 mg Oral Tab No No Sig: Take 1 Tab by mouth daily. ibuprofen (MOTRIN) 800 mg Oral tablet Yes No Sig: Take 800 mg by mouth every 6 hours as needed. insulin aspart protamine-aspart (NovoLOG MIX 70-30) 100 unit/mL (70-30) pen syringe Yes No Sig: Inject by subcutaneous injection. insulin glargine (LANTUS) 100 unit/mL injection Yes No Sig: Inject 10 Units by subcutaneous injection 2 times daily. levothyroxine (SYNTHROID) 137 mcg Oral tablet No No Sig: Take 1 Tab by mouth daily speech therapist early intervention. TAKE WITHOUT FOOD metFORMIN (GLUCOPHAGE) 500 mg Oral tablet No No Sig: Take 1 Tab by mouth daily with supper. niacin (NIACOR) 500 mg tablet Yes No Sig: Take 500 mg by mouth 2 times daily. pantoprazole (PROTONIX) 40 mg Tablet, Delayed Release (E.C.) Yes No Sig: Take 40 mg by mouth daily. rosuvastatin (CRESTOR) 5 mg tablet No No Sig: Take 1 Tab by mouth daily at bedtime. spironolactone (ALDACTONE) 100 mg Oral tablet No No Sig: Take 1 Tab by mouth daily. traZODone (DESYREL) 100 mg tablet Yes No Sig: Take 100 mg by mouth. Facility-Administered Medications: None Medication Allergies: Allergies Allergen Reactions ??? Adhesive Unknown Family History: Family History Problem Relation Age of Onset ??? Diabetes Father ??? High Cholesterol Father ??? Hypertension Father ??? Stroke Mother ??? Heart Disease Mother ??? Thyroid Disease Mother ??? High Cholesterol Mother ??? Heart Disease Maternal Grandmother ??? Diabetes Maternal Grandmother ??? Diabetes Paternal Grandmother Social History: Social History Substance Use Topics ??? Smoking status: Current Every Day Smoker Packs/day: 1.00 Years: 18.00 ??? Smokeless tobacco: Never Used Comment: nicotine patch requested ??? Alcohol use No Review of Systems: Gen: No fever or chills Eyes: No visual changes Ears: No change in hearing Endocrine: No heat or cold intolerance Pulm: No cough or SOB Cardiac: No chest pain or orthopnea GI: Abdominal pain, nausea. : No hematuria, urgency or frequency Musculoskeletal: No pain or weakness Neuro: No numbness or tingling Psych: No anxiety or depression Skin: No rashes or eruptions All other ROS reviewed and are negative Physical Exam: Patient Vitals for the past 8 hrs: BP Temp Temp src Pulse Resp SpO2 Height Weight 03/08/18 0021 111/70 97.7 ??F (36.5 ??C) Oral 69 16 93 % - - 03/07/18 2209 114/78 98.1 ??F (36.7 ??C) Oral - 18 96 % 5' 4 (1.626 m) 86.2 kg (190 lb) 03/07/18 2115 111/82 - - 77 18 98 % - - General: Alert, oriented, no distress, cooperative with examination HENT: NC/AT, throat clear with tongue and uvula midline Eyes: Normal appearing conjunctiva bilaterally, sclera non-icteric, pupils are reactive bilaterallyto light Neck: Supple neck, trachea is midline, no thyroid tenderness is noted. Heart: Regular S1/S2 present without murmurs, rubs or gallops. PMI non- displaced, no edema b/l LE. Lungs: Symmetric chest expansions, clear to auscultation bilaterally without wheezing, rhonchi or crackles Abdomen: Soft, mild midepigastric tenderness, no rebound, non-distended and bowel sounds present. Extremities: No clubbing, cyanosis or edema present bilaterally Neuro: CN2-12 grossly intact. Sensation intact to light touch throughout bilateral UE/LE - MS: Alert, follows commands, answers questions without aphasia Psych: Calm and appropriate with normal affect. No delusions. Data Base: Lab: Results for orders placed or performed during the hospital encounter of 03/07/18 (from the past 24 hour(s)) CBC WITH DIFFERENTIAL Result Value Ref Range WBC 7.8 4.0 - 9.8 K/uL RBC 4.69 3.90 - 4.90 M/uL HEMOGLOBIN 14.7 11.8 - 14.8 g/dL HEMATOCRIT 42.4 35.5 - 44.0 % MCV 90.4 82.0 - 99.0 fL MCH 31.3 27.2 - 32.6 pg MCHC 34.7 31.5 - 35.5 g/dL RDW 13.6 11.5 - 14.5 % RDW-STDEV 44.3 37.1 - 48.7 fL PLATELETS 339 140 - 350 K/uL MPV 9.5 9.3 - 12.4 fL NEUTROPHILS 60 % LYMPHOCYTES 33 % MONOCYTES 5 % EOSINOPHILS 1 % BASOPHILS 1 % IMMATURE GRANULOCYTES 1 % NEUTROPHIL ABSOLUTE 4.67 1.90 - 7.00 K/uL LYMPHOCYTE ABSOLUTE 2.60 0.70 - 4.50 K/uL MONOCYTE ABSOLUTE 0.37 0.10 - 1.30 K/uL EOSINOPHIL ABSOLUTE 0.08 0.00 - 0.70 K/uL BASOPHILS ABSOLUTE 0.04 0.00 - 0.20 K/uL IMMATURE GRANULOCYTES ABSOLUTE 0.05 (H) 0.00 - 0.03 K/uL COMPREHENSIVE METABOLIC PANEL Result Value Ref Range SODIUM 128 (L) 136 - 145 mmol/L POTASSIUM 3.5 - 5.0 mmol/L CHLORIDE 93 (L) 98 - 107 mmol/L CO2 21 (L) 22 - 29 mmol/L CALCIUM 9.2 8.6 - 10.2 mg/dL BUN 9 6 - 20 mg/dL CREATININE 0.39 (L) 0.51 - 0.95 mg/dL GLUCOSE 122 (H) 74 - 99 mg/dL TOTAL PROTEIN 7.3 6.7 - 8.6 g/dL ALBUMIN 4.2 3.5 - 5.2 g/dL BILIRUBIN TOTAL 0.2 (L) 0.3 - 1.2 mg/dL ALKALINE PHOSPHATASE 35 - 104 U/L AST 6 <33 U/L ALT 16 <34 U/L GFR >60 >=60 mL/min/1.73 sq meter GFR, >60 >=60 mL/min/1.73 sq meter ANION GAP 14 8 - 16 mmol/L LIPASE Result Value Ref Range LIPASE 31 13 - 60 U/L POC GLUCOSE Result Value Ref Range POC GLUCOSE 130 (H) 74 - 99 mg/dL COMMENT, GLU POC Notified RN/MD AVIONICS ENGINEER NAME ZURI MCCALL URINALYSIS WITH REFLEX MICROSCOPIC Result Value Ref Range COLOR UA Yellow Pale to Dark Yellow CLARITY UA Clear Clear SPECIFIC GRAVITY UA >1.035 (H) 1.003 - 1.035 PH UA 5.0 5.0 - 8.0 LEUKOCYTE ESTERASE UA Negative Negative NITRITE UA Negative Negative PROTEIN UA Negative Negative GLUCOSE UA Negative Negative KETONES UA Negative Negative UROBILINOGEN UA Normal <2.0 mg/dL BILIRUBIN UA Negative Negative BLOOD UA Negative Negative CT abdomen pelvis personally reviewed: Grossly normal. No air-fluid levels. Liver consistency does not appear particularly fatty Assessment and Plan: 1. Epigastric abdominal pain unclear etiology and significance. Differential is somewhat wide. NSAID use is concerning. Also has reflux despite Protonix twice daily. No clear weight loss. Chylomicronemia? No evidence of pancreatitis. -GI consult -N.p.o. for now 2. GERD -unusual that she will still have burping and reflux symptoms despite being on Protonix twice daily. Non-acid reflux? Less likely malignancy. -GI consult - Hold Protonix while patient n.p.o. 3. Hypertriglyceridemia -has had marked hypertriglyceridemia in the past with levels up to 2500 requiring plasmapheresis. Unsure if this is contributing to her symptoms now. -Repeat lipid panel 4. Type 2 diabetes mellitus without complication, with long-term current use of insulin -on high dose insulin at home of Lantus along with scheduled lispro and sliding scale lispro -Lantus 20/20 - Sliding scale insulin 5. Hyponatremia -likely pseudohyponatremia due to triglycerides 6. Metabolic syndrome 7. Hypothyroidism 8. Tobacco use 1. DVT Prophylaxis Enoxaparin 2. GI Prophylaxis: None 3. Code status Full Code 4. Disposition: Anticipated length of stay less than 48 hours Discussed diagnosis and care plan with patient. Answered questions to their satisfaction. Pernell Tapia MD STANT PASSENGER LOCOMOTIVE ENGINEER documented in this encounter Procedure Notes * Ceasar Vega MD - 03/08/2018 12:03 PM CSTAssociated Order(s): UPPER ENDOSCOPY REPORT [facility] Endoscopy Patient Name: Linda Doss Procedure Date: 03/08/2018 Date of : 1975 Admit Type: Outpatient Attending MD: Ceasar Vega MD Procedure: Upper GI endoscopy Indications: Upper abdominal pain Providers: Ceasar Vega MD Referring MD: Medicines: Monitored Anesthesia Care Complications: No immediate complications. Procedure: Informed consent was obtained for the procedure, including moderate sedation after risks were discussed. Based on the pre-procedure assessment, including review of the patient's medical history, medications, allergies, and review of systems, the patient was deemed to be an appropriate candidate for sedation. A timeout was performed. Continuous ECG monitoring, pulse oximetry, blood pressure monitoring, and direct observation were performed. The Endoscope was introduced through the mouth, and advanced to the third part of duodenum. Estimated Blood Loss: Estimated blood loss: none. Findings: Mild mucosal changes characterized by granularity were found in the lower third of the esophagus. Biopsies were taken with a cold forceps for histology. Diffuse mildly erythematous mucosa was found in the entire examined stomach. Biopsies were taken with a cold forceps for histology. Patchy mildly erythematous mucosa was found in the duodenal bulb. The examined duodenum was normal. Impression: - Granular mucosa in the esophagus. Biopsied. - Erythematous mucosa in the stomach. Biopsied. - Erythematous duodenopathy. - Normal examined duodenum. Recommendation: - Await pathology results. - Diet and lipid management per medicine. - No new GI recomendations. Will sign off for now. Please call with questions. She can follow up in the office if needed. Ceasar Vega MD 03/08/2018 12:03:07 PM This report has been signed electronically. Number of Addenda: [address]; [place] [address] STANT PASSENGER LOCOMOTIVE ENGINEER documented in this encounter Consult Notes * Ceasar Vega MD - 03/08/2018 9:36 AM CSTAssociated Order(s): IP CONSULT TO GI Inpatient Consultation Note [facility] Digestive Diseases Consultation Note Patient: Linda Doss / 42 y.o. / female : 1975 Date: 03/08/2018 [facility]: [id number] Referring Physician:No ref. provider found PCP: No primary care provider on file. Reason for Consult: Abdominal pain History of Present Illness: Linda Doss is a 42 y.o. female Patient with history of hyper triglyceride anemia and associated pancreatitis. Underlying chronic mild abdominal pain punctuated by bouts of more significant pain. Admitted for increased abdominal pain. Outpatient triglycerides approximately 600. Here they are 2900. Labs and imaging did not suggestongoing pancreatitis. Patient reports no GI symptoms until spring 2016. She did have known hypertriglyceridemia. She thenhad a bout of pancreatitis thought related to the hyperlipoidemia. She was cared for in [facility] subsequently at [facility]. She had stuttering symptoms throughout the summer. It sound like she underwent endoscopic ultrasound. There was some concern for delayed gastric emptying. The patient then did well until September 2017. She has been seeing Dr. Mayer for hyperglyceridemia. She reports a bout of pancreatitis in September 2017 and a subsequent admission in November for hypertriglyceridemia. Unfortunately chart merger issues related to her recent marriage making it difficult to find her more recent records. We also have no access to care everywhere at [facility]. Current exacerbation started several days ago. She describes pain in her upper abdomen. Radiating somewhat to the left. She does have chronic nausea even when she is not having significant pain. She has not been vomiting. No heartburn or dysphagia. She does belch frequently. Stool frequency and consistency varies. No blood in the stool. Patient notes no history of gallstones and does still have her gallbladder. No history of peptic ulcer disease. She does occasionally take NSAIDs. There is no family history of pancreatitis or other GI illness. Patient does not drink alcohol was never a significant drinker. Allergies Allergen Reactions ??? Adhesive Unknown Prescriptions Prior to Admission Medication Sig Dispense Refill Last Dose ??? naproxen sodium (ALEVE) 220 mg Tablet Take 220 mg by mouth 2 times daily as needed for Pain, Moderate. ??? LORazepam (ATIVAN) 1 mg tablet Take 1 mg by mouth 2 times daily. ??? telxlry-odlefr-utzdmqsi DR TING) 60-12-38 capsule Take by mouth 3 times daily. ??? insulin glargine (LANTUS) 100 unit/mL injection Inject 28 Units by subcutaneous injection 2 times daily 28 units in the AM 38 units in the PM. ??? niacin (NIACOR) 500 mg tablet Take 500 mg by mouth 2 times daily. ??? pantoprazole (PROTONIX) 40 mg Tablet, Delayed Release (E.C.) Take 40 mg by mouth 2 times daily . ??? MYIOO5C-[id number]-RVV-ZBSX OIL ORAL Take by mouth 4 times daily. ??? traZODone (DESYREL) 100 mg tablet Take 100 mg by mouth. ??? insulin aspart protamine-aspart (NovoLOG MIX 70-30) 100 unit/mL (70-30) pen syringe Inject by subcutaneous injection 12 units breakfast 14 units lunch 20 units dinner Also with sliding scale. ??? levothyroxine (SYNTHROID) 137 mcg Oral tablet Take 1 Tab by mouth daily speech therapist early intervention. TAKE WITHOUT FOOD (Patient taking differently: Take 175 mcg by mouth daily speech therapist early intervention TAKE WITHOUT FOOD. ) 30 Tab 0 ??? rosuvastatin (CRESTOR) 5 mg tablet Take 1 Tab by mouth daily at bedtime. (Patient taking differently: Take 20 mg by mouth daily at bedtime . ) 30 Tab 0 ??? spironolactone (ALDACTONE) 100 mg Oral tablet Take 1 Tab by mouth daily. 30 Tab 2 ??? fenofibrate (LOFIBRA) 160 mg Oral Tab Take 1 Tab by mouth daily. 90 Tab 0 ??? metFORMIN (GLUCOPHAGE) 500 mg Oral tablet Take 1 Tab by mouth daily with supper. 90 Tab 2 ??? citalopram (CELEXA) 40 mg Oral tablet Take 40 mg by mouth daily. ??? ibuprofen (MOTRIN) 800 mg Oral tablet Take 200 mg by mouth every 8 hours as needed . Past Medical History: Diagnosis Date ??? Anxiety ??? Diabetes mellitus ??? Family history of diabetes mellitus 05/15/2011 ??? Family history of early CAD 05/15/2011 ??? High triglycerides ??? History of gestational diabetes 05/15/2011 ??? Hypothyroidism ??? Metabolic syndrome 05/15/2011 ??? PCOS (polycystic ovarian syndrome) 05/15/2011 Past Surgical History: Procedure Laterality Date ??? HX APPENDECTOMY ??? HX HYSTERECTOMY partial due to endometriosis 2006 Family History Problem Relation Age of Onset ??? Diabetes Father ??? High Cholesterol Father ??? Hypertension Father ??? Stroke Mother ??? Heart Disease Mother ??? Thyroid Disease Mother ??? High Cholesterol Mother ??? Heart Disease Maternal Grandmother ??? Diabetes Maternal Grandmother ??? Diabetes Paternal Grandmother Social History Substance Use Topics ??? Smoking status: Current Every Day Smoker Packs/day: 1.00 Years: 18.00 ??? Smokeless tobacco: Never Used Comment: nicotine patch requested ??? Alcohol use No Review of Systems: Gen: Denies fever/chills or changes in weight Jeff: Denies CORTES CV: Denies CP, palpitations Pulm: Denies SOB, cough GI: See HPI MS: Denies arthralgais, myalgias Derm: Denies rashes or lesions. : Denies dysuria or hematuria Heme/Lymph: Denies night sweats, enlarged lymph nodes or abnormal bleeding Physical Exam: BP 101/59 (BP Location: Left arm, Patient Position (BP): Supine) Pulse (!) 106 Temp 98.1 ??F (36.7 ??C) (Oral) Resp 17 Ht 5' 4 (1.626 m) Wt 86.2 kg (190 lb) SpO2 90% ? No BMI 32.61 kg/m?? Intake/Output Summary (Last 24 hours) at 03/08/18 0936 Last data filed at 03/08/18 0800 Gross per 24 hour Intake 1121.9 ml Output 0 ml Net 1121.9 ml General: WD/WN. In NAD HEENT: NCAT, PERRLA, sclera anicteric, conjunctiva pink, mucous membranes moist, oropharynx clear, gross hearing normal Neck: supple, trachea midline, no thyromegaly or JVD Lungs: normal respiratory effort, CTAB, without wheezes, crackles or rhonchi Heart: S1S2, RRR, without murmur or gallop Abdomen: Soft, non-distended. +BS. No HSM or palpable masses. Mild upper abdominal tenderness. Skin: no jaundice, obvious rashes or lesions, warm to palpation Extremities: no cyanosis or edema, Neurologic/Psych: A&Ox3, normal mood/affect Pertinent Labs: Lab Results Component Value Date/Time WBC 6.6 03/08/2018 05:15 AM HEMOGLOBIN 12.4 03/08/2018 05:15 AM HEMATOCRIT 38.0 03/08/2018 05:15 AM PLATELETS 259 03/08/2018 05:15 AM MCV 92.7 03/08/2018 05:15 AM Lab Results Component Value Date/Time SODIUM 135 (L) 03/08/2018 05:15 AM POTASSIUM 4.0 03/08/2018 05:15 AM CHLORIDE 96 (L) 03/08/2018 05:15 AM CO2 22 03/08/2018 05:15 AM CALCIUM 8.4 (L) 03/08/2018 05:15 AM BUN 9 03/08/2018 05:15 AM CREATININE 0.53 03/08/2018 05:15 AM GLUCOSE 117 (H) 03/08/2018 05:15 AM TOTAL PROTEIN 7.3 03/07/2018 02:15 PM ALBUMIN 4.2 03/07/2018 02:15 PM BILIRUBIN TOTAL 0.2 (L) 03/07/2018 02:15 PM ALKALINE PHOSPHATASE 03/07/2018 02:15 PM Comment: Gross hemolysis present. Result unreliable. AST 6 03/07/2018 02:15 PM ALT 16 03/07/2018 02:15 PM ANION GAP 17 (H) 03/08/2018 05:15 AM No results found for: INR, PT, PROTIMEPOC Pertinent Imaging: Results for orders placed during the hospital encounter of 03/07/18 CT ABDOMEN PELVIS W CONTRAST Narrative EXAM: CT ABDOMEN AND PELVIS WITH IV CONTRAST DATE: 03/07/2018 6:24 PM HISTORY: Abdominal pain. COMPARISON: None. TECHNIQUE: 5 mm axial images through the abdomen and pelvis following administration of IV contrast. CONTRAST: IOPAMIDOL 61 % INTRAVENOUS SOLUTION Given:125 mL FINDINGS: Lung bases are clear. 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 There is no urinary tract obstruction. Chronic deformity of the left kidney is noted. The abdominal aorta is unremarkable with no aneurysm or dissection. The uterus is surgically absent. The bladder is unremarkable. There is no bowel obstruction, fluid collection, free air, or other acute process. The appendix is surgically absent per patient history. The bones are unremarkable. Impression IMPRESSION: Status post hysterectomy. 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 No urinary tract obstruction is seen. There is no urinary tract mass. Chronic deformity of the left kidney is noted. No bowel obstruction or acute process. The examination was performed with the adjustment of mA according to the patient size and/or the use of Iterative 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 DICTATION LOCATION: Location 1 - [facility] Impression/Plan: 1) Hypertriglyceridemia history of associated pancreatitis. No current evidence of pancreatitis by labs or imaging. Films reviewed. Management of hypertriglyceridemia per hospitalist and Dr. Mayer. 2) Abdominal pain. Patient reports chronic baseline symptoms with mild nausea and mild abdominal discomfort. However, this is punctuated by more significant abdominal pain. She had several bouts in the spring and summer 2017 often associated with pancreatitis. She also had a bout in September 2017. No current evidence of pancreatitis. Plan upper endoscopy to evaluate for peptic ulcer disease, reflux.Then follow symptoms as triglycerides manage. Issue of delayed gastric emptying has been raised previously at [facility] per patient report. CT from last night does not show any gastric distention. We will attempt to obtain old records. Thank you very much for this consultation. Ceasar Vega MD [facility] Digestive Diseases Office: [phone] Pager: [phone] CC: No ref. provider found , No primary care provider on file. STANT PASSENGER LOCOMOTIVE ENGINEER documented in this encounter OR Notes * Rebecca-OP - Awilda Pagan, RN - 03/08/2018 10:45 AM CST Routine Pre-Anesthesia Protocol for GI Lab Procedures ?? [facility] ? ORDERS ARE ENTERED ???PER PROTOCOL? Enter the protocol in the patient???s electronic health record using Curious Hatrase: .anestprotocolgilab ?? NURSING ORDERS: Monitoring: ?? Obtain and record vital signs ?? Continuous vital signs (Non-invasive blood pressure, pulse oximetry and cardiac monitoring) for all inpatients and all patients currently taking beta-blockers ?? Place #20 gauge IV in non-dominant, non-operative or not otherwise excluded upper extremity ?? Contact responsible anesthesiologist if recommending use of a #22 gauge IV ?? See medication section for local Anesthetic to use to initiate IV ?? LABORATORY ORDERS: Screening Protocol: ? Urine bHCG (serum if necessary) Female of menses, or age > 12 y/o ?? Point of Care Testing: FOR PATIENTS WITH A HISTORY OF DIABETES, RECEIVING INSULIN, OR EXHIBITING SIGNS AND SYMPTOMS OF HYPOGLYCEMIA. ? POC glucose on initial assessment ?? POC glucose every 4 hours if NPO ?? POC glucose within 30 minutes of discharge or transfer to another unit (the time based intra-procedure POC check may be deferred during short procedures at the discretion of the provider) ?? POC for any patient exhibiting signs and symptoms of hypoglycemia ?? If POC Glucose results are critical, do not delay treatment. If appropriate, may confirm POC with: Nursing Only [id number] (this lab can be obtained at no cost to the patient when confirming a criticalhigh or critical low POC glucose ?? MEDICATION ORDERS: ? Local Anesthetic to use to initiate IV line: Lidocaine 2% 0.3mL intradermal ONE TIME to numb area of IV catheter insertion PRN. ?IV Fluid - Adult patients (age 18 years or greater): ? Lactated ringer???s solution to infuse at 125mL/hr, may discontinue upon discharge from procedure area ?? Patient specific modification as indicated: ? If patient is found to have a serum creatinine >2 or history of renal failure, RN may change fluid to NS at 10ml/hr ?? Contact provider to consider dextrose containing fluids for: ? NPO patients who have received PO or injectable antihyperglycemic agents and glucose is less than 100 mg/dl ?? NPO patients who have NOT received PO or injectable antiHYPERglycemic agents and POC glucose is less than 70 mg/dL. ? When receiving report on an inpatient, confirm if patient is receiving dextrose containing fluids to prevent hypoglycemia. Communicate with the anesthesiologist and request glucose containing fluids be continued or added to intraoperative fluids. ?? Any time a patient???s enteral or parenteral nutrition is interrupted for longer than four hoursand POC glucose or serum glucose is less than 100 mg/dL contact provider for dextrose containing fluids ? Notify provider for any POC glucose or serum glucose less than 70 mg/dL. RESCUE MEDICATION ORDERS - entered by the Pharmacist accountant supervisor ? Meter Glucose less than 70, patient CONSCIOUS, able to swallow and allowed oral intake: ?? ? Give carbohydrates orally, choose one: ?? Give 15 gram food choice such as: Regular soda (6 oz), Apple juice (4 oz), Sugar, 1 tablespoon (4 packets or 5 cubes), or 1 container regular Jello. ?? Reminder: avoid mixing sugar into a drink such as soda or juice, as this will constitute 30 grams of carbs with the sugar and drink. ? Recheck POC Glucose: ?? Recheck POC Glucose every 15 minutes and re-treat with 15 grams of carbohydrates until blood glucose is 70 mg/dL or greater. Once POC glucose result is 70 mg/dL or greater after hypoglycemic episode, POC glucose to be checked every 30 minutes for 3 consecutive occurrences with results of 70 mg/dL or greater, then resume previous POC Glucose check orders. ? Meter Glucose less than 70, IV Access, patient UNCONSCIOUS, unable to swallow and/or NPO ?? ? Give dextrose IV: ?? Dextrose 50%, give 12.5grams IV push ONE TIME ? Recheck POC Glucose: ?? Recheck POC Glucose and re-treat every 15 minutes with 12.5 g of Dextrose 50%. Once POC Glucose 70 mg/dL or greater after hypoglycemic episode, POC glucose to be checked every 30 minutes for 3 occurrences, then resume previous POC Glucose check orders ? Meter Glucose less than 70, NO IV Accessible, patient UNCONSCIOUS, unable to swallow and/or NPO ?? ? Give glucagon IM ?? Glucagon (GLUCAGEN) 1 mg IM ONE TIME ?? Recheck POC Glucose: ?? Recheck blood glucose 15 minutes after administration of glucagon and re- treat accordingly. After administration of glucagon is complete insert peripheral IV and notify physician. ?? Once POC Glucose result is 70 mg/dL or greater after hypoglycemic episode, POC glucose to be checked every 30 minutes for 3 consecutive occurrences with results 70 mg/dL or greater, then resume previous POC orders ?? After Hypoglycemic Symptoms Subside and NOT NPO, Give a Snack o?SNACK CHOICES: Should include 1 carb and 1 fat servin saltine crackers and 2 teaspoonspeanut butter; or 1 slice of bread and 2 teaspoons peanut butter; or 1 oz cheese and 6 saltine crackers; or 1 cup 2% milk and 6 saltine crackers. ? Initiating Department(s): 01/2009 OR; Anesthesia; Nursing; GI Lab Reviewed: 03/29/2012, 12/2014, 04/2017 Revised: 03/29/2012, 12/2014 ?Approved by: Medical Executive Committee, Nursing Leadership, Pharmacy &??Therapeutics Committee ?Date:05/2017 STANT PASSENGER LOCOMOTIVE ENGINEER documented in this encounter ED Notes * Jeff Enciso RN - 03/07/2018 6:30 PM CST Pt requesting more pain medication, will check w/ MD Lind. Otherwise, she continues to rest in stretcher while awaiting CT results. Will continue to monitor. STANT PASSENGER LOCOMOTIVE ENGINEER * Jeff Enciso RN - 03/07/2018 6:00 PM CST Pt continues to rest in stretcher while awaiting CT scan. Reports significant relief in both nauseaand pain. Denies complaints and NAD noted. Visitor at bedside, call button within reach. Will continue to monitor. STANT PASSENGER LOCOMOTIVE ENGINEER * Jeff Enciso RN - 03/07/2018 5:25 PM CST Pt medicated per MAR. Patient/family has been informed about benefits and any potential clinically significant side effects or other concerns regarding the administration of the drug they have just been given. NS infusing wide open. Awaiting CT scan. Will continue to monitor. STANT PASSENGER LOCOMOTIVE ENGINEER * Jeff Enciso RN - 03/07/2018 4:57 PM CST Pt to ED for evaluation of LUQ abdominal pain x 2 days; reports n/v. PMHx includes pancreatitis, says she was seen by PCP yesterday and told that her lipids are high. Denies other symptoms at this time, reports normal BMs and PO intake. NAD noted. Awaiting MD evaluation and plan of care. Will continue to monitor. STANT PASSENGER LOCOMOTIVE ENGINEER * Ambika Llanes RN - 03/07/2018 2:10 PM CST Emergency Department Adult Female Abdominal Pain Protocol [facility] ORDERS ARE ENTERED ???PER PROTOCOL?? Nursing Orders: o Insert peripheral IV (excessive vomiting or diarrhea) Laboratory Orders: o CBC with diff ([id number]) o CMP (LAB17) o If female of childbearing age: POC Urine HCG (POC7) or HCG Qualitative urine ([id number]) if sending to lab o Urinalysis with Reflex Microscopy (KVS780) o Serum HCG (if knowingly ) (FIO899) o Obtain serum lipase (LAB99) if upper abdominal pain o Draw and send extra tubes to lab (ED hold) ([id number]) Diagnostic Test Orders: o If RUQ pain, [...] NPO until otherwise ordered by attending physician Initiating Department(s): Adult Emergency Department Reviewed: 08/31, 09/01, 09/02, 09/03, 09/04, 09/05, 09/06, 09/08, 05/12, 04/11, 07/2014, 08/2015, 08/2016, 03/2017 Revised: 09/07, 09/08, 05/12, 04/11, 07/2014, 08/2015, 08/2016,03/2017 Revised by: Margarita Obando RN, BSN, YEFRI Nurse Professor Of Chemical Engineering Approved by: Medical Executive Committee, Nursing Leadershp, Pharmacy & Therapeutics Date:03/2017 STANT PASSENGER LOCOMOTIVE ENGINEER * Puja Garcia RN - 03/07/2018 1:43 PM CST We promote safety at our facility and do not allow any type of weapon in the building. Do you have a weapon or something that could be used as a weapon on you today? denied possession of any weapons or firearms at this time. STANT PASSENGER LOCOMOTIVE ENGINEER * Pernell Lind MD - 03/07/2018 1:36 PM CST HISTORY OF PRESENT ILLNESS Linda Doss, a 42 y.o. female presents to the ED with a Chief Complaint of Abdominal Pain Subjective 5:00 PM 42 y/o F h/o DM 2, HLD, metabolic syndrome, PCOS, hypertriglyceridemia with secondary pancreatitis,s/p partial hysterectomy, and appendicits presents with chronic abdominal pain. 02/10 - Admitted here with abdominal pain. Triglycerides at that time were 2540. She had a normal lipase at that time. Plasmapheresis was performed and patient was discharged on 02/18 with improved triglycerides down to 705. 1 week ago patient began having worsening LUQ abdominal pain which radiates into the back. Associated constant nausea with intermittent vomiting of clear/yellow products. 2-3 days ago she ran out of her hydrocodone which she takes for her abdominal pain. Yesterday patient was seen by Dr. Mayer, who follows her for her high triglycerides. Outpatient blood work yesterday showed triglycerides 612, lipase was normal. Patient states pending the results she was recommended plasmapheresis, but she talked with Dr. Mayer this morning, regarding her results, who no longer recommended plasmapheresis due to improved triglycerides, but recommended if having persistent abdominal pain to come to the ER. Patient states she feels worse today than she felt yesterday. She has had a normal BM this AM. No blood in stool. PCP: Dr. Yeni Bailey [facility] Cardiology: Dr. Mayer History provided by: The patient Arrived by: Private vehicle REVIEW OF SYSTEMS Review of Systems Constitutional: Negative for chills and fever. HENT: Negative for sore throat. Eyes: Negative for photophobia and pain. Respiratory: Negative for chest tightness and shortness of breath. Cardiovascular: Negative for chest pain and leg swelling. Gastrointestinal: Positive for abdominal pain, nausea and vomiting. Negative for blood in stool, constipation and diarrhea. Genitourinary: Negative for dysuria and frequency. Musculoskeletal: Negative for back pain, myalgias and neck pain. Skin: Negative for pallor and rash. Neurological: Negative for numbness and headaches. Psychiatric/Behavioral: Negative for confusion and hallucinations. PAST MEDICAL HISTORY REVIEWED MEDICAL: Patient has a past medical history of Anxiety; Diabetes mellitus; Family history of diabetes mellitus (05/15/2011); Family history of early CAD (05/15/2011); High triglycerides; History of gestational diabetes (05/15/2011); Hypothyroidism; Metabolic syndrome (05/15/2011); and PCOS (polycystic ovarian syndrome) (05/15/2011). She also has no past medical history of CRI (chronic renal insufficiency). SURGICAL: Patient has a past surgical history that includes hx hysterectomy and hx appendectomy. FAMILY: Patient's family history includes Diabetes in her father, maternal grandmother, and paternal grandmother; Heart Disease in her maternal grandmother and mother; High Cholesterol in her father and mother; Hypertension in her father; Stroke in her mother; Thyroid Disease in her mother. SOCIAL: reports that she has been smoking. She has a 18.00 pack-year smoking history. [...] of early CAD; PCOS (polycystic ovarian syndrome); Unspecified hypothyroidism; Tobacco use; Hypertriglyceridemia; and Type 2 diabetes mellitus without complication, with long-term current use of insulin on her problem list. ALLERGIES Adhesive HOME MEDICATIONS Current Discharge Medication List CONTINUE these medications which have NOT CHANGED Details naproxen sodium (ALEVE) 220 mg Tablet Take 220 mg by mouth 2 times daily as needed for Pain, Moderate. LORazepam (ATIVAN) 1 mg tablet Take 1 mg by mouth 2 times daily. xyfrlfj-fipyaz-fxrdslpq DR (CREON) 60-12-38 capsule Take by mouth 3 times daily. insulin glargine (LANTUS) 100 unit/mL injection Inject 28 Units by subcutaneous injection 2 times daily 28 units in the AM 38 units in the PM. niacin (NIACOR) 500 mg tablet Take 500 mg by mouth 2 times daily. pantoprazole (PROTONIX) 40 mg Tablet, Delayed Release (E.C.) Take 40 mg by mouth 2 times daily . [id number] OIL ORAL Take by mouth 4 times daily. traZODone (DESYREL) 100 mg tablet Take 100 mg by mouth. insulin aspart protamine-aspart (NovoLOG MIX 70-30) 100 unit/mL (70-30) pen syringe Inject by subcutaneous injection 12 units breakfast 14 units lunch 20 units dinner Also with sliding scale. levothyroxine (SYNTHROID) 137 mcg Oral tablet Take 1 Tab by mouth daily speech therapist early intervention. TAKE WITHOUTFOOD Qty: 30 Tab, Refills: 0 Associated Diagnoses: Unspecified hypothyroidism rosuvastatin (CRESTOR) 5 mg tablet Take 1 Tab by mouth daily at bedtime. Qty: 30 Tab, Refills: 0 spironolactone (ALDACTONE) 100 mg Oral tablet Take 1 Tab by mouth daily. Qty: 30 Tab, Refills: 2 fenofibrate (LOFIBRA) 160 mg Oral Tab Take 1 Tab by mouth daily. Qty: 90 Tab, Refills: 0 metFORMIN (GLUCOPHAGE) 500 mg Oral tablet Take 1 Tab by mouth daily with supper. Qty: 90 Tab, Refills: 2 citalopram (CELEXA) 40 mg Oral tablet Take 40 mg by mouth daily. ibuprofen (MOTRIN) 800 mg Oral tablet Take 200 mg by mouth every 8 hours as needed . Associated Diagnoses: Metabolic syndrome; History of gestational diabetes; PCOS (polycystic ovariansyndrome); Adrenal mass; Familial combined hyperlipidemia; Hypothyroidism Objective PHYSICAL EXAM INITIAL VS BP: (!) 159/95 (03/07/18 134), Heart Rate: 98 bpm (03/07/18 134), Resp: 17 (03/07/181340), Temp:98.3 ??F (36.8 ??C) (03/07/18 134), Temp src: Oral (03/07/18 134), SpO2: 99 % (03/07/181340), Height: 5' 4 (162.6 cm) (03/07/18 134), Weight: 89.8 kg (198 lb) (03/07/18 134), BMI (Calculated): 33.97 (03/07/18 134) No LMP recorded. Patient has had a hysterectomy. Physical Exam Constitutional: She is oriented to person, place, and time. She is cooperative. HENT: Head: Normocephalic and atraumatic. Mouth/Throat: Oropharynx is clear and moist and mucous membranes are normal. Eyes: Pupils are equal, round, and reactive to light. Conjunctivae, EOM and lids are normal. No scleral icterus. Neck: Neck supple. No tracheal deviation present. Cardiovascular: Normal rate, regular rhythm and normal heart sounds. Exam reveals no gallop and no friction rub. No murmur heard. Pulmonary/Chest: Effort normal and breath sounds normal. No respiratory distress. She has no wheezes. She has no rales. She exhibits no tenderness. Abdominal: Soft. Bowel sounds are normal. She exhibits no distension and no mass. There is no hepatosplenomegaly. There is tenderness in the epigastric area and left upper quadrant. There is no rebound and no guarding. Musculoskeletal: Normal range of motion. She exhibits no edema or tenderness. Lymphadenopathy: She has no cervical adenopathy. Neurological: She is alert and oriented to person, place, and time. No cranial nerve deficit (as tested). She exhibits normal muscle tone. Coordination normal. Skin: Skin is warm and dry. No rash noted. She is not diaphoretic. No erythema. No pallor. Psychiatric: She has a normal mood and affect. Her speech is normal and behavior is normal. Judgment and thought content normal. Nursing note and vitals reviewed. DIAGNOSTICS LAB: CBC WITH DIFFERENTIAL - Abnormal Result Value WBC 7.8 RBC 4.69 HEMOGLOBIN 14.7 HEMATOCRIT 42.4 MCV 90.4 MCH 31.3 MCHC 34.7 RDW 13.6 RDW-STDEV 44.3 PLATELETS 339 MPV 9.5 NEUTROPHILS 60 LYMPHOCYTES 33 MONOCYTES 5 EOSINOPHILS 1 BASOPHILS 1 IMMATURE GRANULOCYTES 1 NEUTROPHIL ABSOLUTE 4.67 LYMPHOCYTE ABSOLUTE 2.60 MONOCYTE ABSOLUTE 0.37 EOSINOPHIL ABSOLUTE 0.08 BASOPHILS ABSOLUTE 0.04 IMMATURE GRANULOCYTES ABSOLUTE 0.05 (*) COMPREHENSIVE METABOLIC PANEL - Abnormal SODIUM 128 (*) POTASSIUM CHLORIDE 93 (*) CO2 21 (*) CALCIUM 9.2 BUN 9 CREATININE 0.39 (*) GLUCOSE 122 (*) TOTAL PROTEIN 7.3 ALBUMIN 4.2 BILIRUBIN TOTAL 0.2 (*) ALKALINE PHOSPHATASE AST 6 ALT 16 GFR >60 GFR, >60 ANION GAP 14 LIPASE - Normal LIPASE 31 RADIOLOGY: CT ABDOMEN PELVIS W CONTRAST CT ABDOMEN PELVIS W CONTRAST Preliminary Result IMPRESSION: Status post hysterectomy. 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 No urinary tract obstruction is seen. There is no urinary tract mass. Chronic deformity of the left kidney is noted. No bowel obstruction or acute process. The examination was performed with the adjustment of mA according to the patient size and/or the use of Iterative 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 DICTATION LOCATION: Location 1 - [facility] PROCEDURES Procedures MEDICAL DECISION MAKING AND PLAN OF CARE -- on initial evaluation discussed with patient that it is indicated per Dr. Mayer's records johnnie has chart records under Linda Doss as well. We will have registration begin the process of merging these charts. Reviewed blood work with patient. Will obtain CT abdomen for further evaluation. Will give morphine for pain. 7:35 PM: Patient still having abdominal pain, not comfortable going home. Will admit for further management. Discussed with patient unclear etiology to her pain. 7:46 PM: D/w ANNA Bradshaw admit to Dr. Ortega. ED provider and ED nurse verbally discussed patient plan of care at this time. MDM I have reviewed previous: notes and labs I have reviewed current: labs and imaging I have reviewed nursing notes related to past medical history, social history, and review of systems and agree, unless otherwise noted. Consults: hospitalist Medications Administered During the ED Stay from 03/07/2018 1336 to 03/07/2018 2207 Date/Time Order Dose Route Action 03/07/2018 1800 sodium chloride 0.9% bolus solution 500 mL 0 mL IV Stopped 03/07/2018 1755 sodium chloride 0.9% bolus solution 500 mL 0 mL IV Stopped 03/07/2018 1725 sodium chloride 0.9% bolus solution 500 mL 500 mL IV New Bag 03/07/2018 2115 sodium chloride 0.9% infusion IV Rate Verify 03/07/2018 2113 sodium chloride 0.9% infusion IV New Bag 03/07/2018 1725 morphine 4 mg/mL injection 4 mg 4 mg IV Given 03/07/2018 1725 prochlorperazine (COMPAZINE) injection 5 mg 5 mg IV Given 03/07/2018 1824 iopamidol (ISOVUE-300) 61 % injection 125 mL 125 mL IV Contrast Given 03/07/2018 1745 sodium chloride flush injection 10 mL 10 mL IV Given 03/07/20182017 morphine 4 mg/mL injection 4 mg 4 mg IV Given Current Discharge Medication List CONTINUE these medications which have NOT CHANGED Details naproxen sodium (ALEVE) 220 mg Tablet Take 220 mg by mouth 2 times daily as needed for Pain, Moderate. LORazepam (ATIVAN) 1 mg tablet Take 1 mg by mouth 2 times daily. hoibpxu-fdprfo-iccttvyh DR (CREON) 60-12-38 capsule Take by mouth 3 times daily. insulin glargine (LANTUS) 100 unit/mL injection Inject 28 Units by subcutaneous injection 2 times daily 28 units in the AM 38 units in the PM. niacin (NIACOR) 500 mg tablet Take 500 mg by mouth 2 times daily. pantoprazole (PROTONIX) 40 mg Tablet, Delayed Release (E.C.) Take 40 mg by mouth 2 times daily . [id number]-LRLS OIL ORAL Take by mouth 4 times daily. traZODone (DESYREL) 100 mg tablet Take 100 mg by mouth. insulin aspart protamine-aspart (NovoLOG MIX 70-30) 100 unit/mL (70-30) pen syringe Inject by subcutaneous injection 12 units breakfast 14 units lunch 20 units dinner Also with sliding scale. levothyroxine (SYNTHROID) 137 mcg Oral tablet Take 1 Tab by mouth daily speech therapist early intervention. TAKE WITHOUTFOOD Qty: 30 Tab, Refills: 0 Associated Diagnoses: Unspecified hypothyroidism rosuvastatin (CRESTOR) 5 mg tablet Take 1 Tab by mouth daily at bedtime. Qty: 30 Tab, Refills: 0 spironolactone (ALDACTONE) 100 mg Oral tablet Take 1 Tab by mouth daily. Qty: 30 Tab, Refills: 2 fenofibrate (LOFIBRA) 160 mg Oral Tab Take 1 Tab by mouth daily. Qty: 90 Tab, Refills: 0 metFORMIN (GLUCOPHAGE) 500 mg Oral tablet Take 1 Tab by mouth daily with supper. Qty: 90 Tab, Refills: 2 citalopram (CELEXA) 40 mg Oral tablet Take 40 mg by mouth daily. ibuprofen (MOTRIN) 800 mg Oral tablet Take 200 mg by mouth every 8 hours as needed . Associated Diagnoses: Metabolic syndrome; History of gestational diabetes; PCOS (polycystic ovariansyndrome); Adrenal mass; Familial combined hyperlipidemia; Hypothyroidism LAST VS BP: 111/70 (03/08/18 0021), Heart Rate: 76 bpm (03/07/182208), Resp: 16 (03/08/1820), Temp: 97.7 ??F (36.5 ??C) (03/08/1820), Temp src: Oral (03/08/1820), SpO2: 93 % (03/08/1820) CLINICAL IMPRESSION Final diagnoses: [R10.9] Abdominal pain, unspecified abdominal location (Primary) [E11.9, Z79.4] Type 2 diabetes mellitus without complication, with long-term current use of insulin [E78.1] Hypertriglyceridemia DISPOSITION, EDUCATION AND MEDICATION RECONCILIATION Medications reconciled. See after visit summary for patient education on discharged patients. ED Disposition ED Disposition Condition User Date/Time Comment Admit Stable Pernell Lind MD SatMar 07, 2018 7:48 PM ATTESTATION STATEMENTS This note has been prepared by Mar العراقي acting as a scribe for Dr. Manan Lind on 03/07/2018 at 7:48 PM. The scribe's documentation has been prepared under my direction and personally reviewed by me, Pernell Lind, in its entirety on 03/08/18 at 1:25 AM. I confirm that the note above accurately reflectsall work, treatment, procedures, and medical decision making performed by me. STANT PASSENGER LOCOMOTIVE ENGINEER documented in this encounter Miscellaneous Notes * Care Plan - Sandeep Carlisle RN - 03/09/2018 4:19 PM CST Results for LINDA DOSS ( ) as of 03/09/2018 16:18 Ref. Range 03/09/2018 10:18 03/09/2018 13:50 POC GLUCOSE Latest Ref Range: 74 - 99 mg/dL 85 123 (H) Not requiring humalog SSI. Did not receive any insulin at breakfast. Pt. Sleeping until 1000. Awoken for Dr. Felix, medication and breakfast. Medicated with levsin for abdominal pain, compazine for nausea. Diet advanced to lowfat, diabetic; tolerated well. Pt. Denies pain and nausea. Linda Doss will be discharged via ambulatory to home. Linda Doss is accompanied by family member(s) and will be transported via private vehicle. Pt. States she has been instructed on lowfat diet previous to this admission. Pt. Declined to wait for dietary education. Ambulated off ujnit with family. STANT PASSENGER LOCOMOTIVE ENGINEER * Care Plan - Alize Darling RN - 03/09/2018 3:22 AM CST Pt remains AOx4, sleeping in between care. Pt less talkative this shift than last night. Pt remainson clear liquid diet. VSS, blood sugars stable, given apple juice x2 to keep from going hypoglycemic. Voiding per bathroom, urine clear yellow. No BM this shift. Up independently. Tolerating NS @ 75.Biopsy results still pending. STANT PASSENGER LOCOMOTIVE ENGINEER * Care Plan - Harvey Rendon RN - 03/08/2018 8:13 AM CST Patient NPO for GI consult, c/o abdominal pain. GI physician at bedside now. At 1014: blood sugar is 114. Off floor to GI lab around 1035 for endoscopy . At 1340: patient verbalized that patient is not feeling good and face is red and legs also look red. patient had Niacin 500 mg po around 1311.Dr.wood Myrick. At 1428: Benadryl, tylenol and Levsin given. At 1610: Patient verbalized relief of burning sensation on face and legs but still c/o headache.Patient seems resting quietly when nursing staff comes to the staff when asked for comfort then patientc/o pain. STANT PASSENGER LOCOMOTIVE ENGINEER * Care Plan - Alize Darling RN - 03/08/2018 7:51 AM CST Pt remains AOx4, sleeping between care. Using morphine to manage pain, and zofran and compazine to manage nausea.Pt up independently to BR, voiding in hat. VSS. STANT PASSENGER LOCOMOTIVE ENGINEER * Care Plan - Alize Darling RN - 03/08/2018 1:01 AM CST Pt admitted to room [facility], oriented to bathroom, call light, phone, and television. Pt complaints ofpain and nausea, given morphine and compazine when available. Undress and assess, no skin breakdownnoted; one small scar on back R shoulder. Pt settled, all questions answered. Undress and Assess performed by: CLAU Herrmanntube sorter or upon transfer to:[facility] ~~~~~~~~~~~~~~~~~~~~~~~~~~~~ Is the patient a paraplegic/quadriplegic? Does the patient have new purple/sissy/dark red over bony prominences? Does the patient have an ostomy? Is the length of stay >2 weeks? ~If ANY answer 'yes'- please consult~ Patient does not have skin breakdown. Wound care consult was and was not initiated. Location/ Description of breakdown: small scar on back of R shoulder Apply Protective Dressings to Sacrum and Heels (Mepilex) as per Pathway Patient arrived to this room with the following belongings/valuables:(ie:dentures, hearing aids, glasses): Patient arrived to this room with the following medical equipment/devices (ie: insulin pump, home CPAP, walker): All Jewelry removed from patient Yes Disposition of belongings/valuables: STANT PASSENGER LOCOMOTIVE ENGINEER documented in this encounter Plan of Treatment Upcoming Encounters Date Type Department Care Team (Late st Contact Info) Description 09/14/2024 3:00 PM CDT Office Visit [facility] [id number] [place] [address] Marlys Mayer MD [address] [place] [address] documented as of this encounter Procedures Procedure Name Priority Date/Time Associated Diagnosis Comments POC GLUCOSE Routine 03/09/2018 1:50 PM ASSISTANT PASSENGER LOCOMOTIVE ENGINEER POC GLUCOSE Routine 03/09/2018 10:18 AM ASSISTANT PASSENGER LOCOMOTIVE ENGINEER CBC WITH DIFFERENTIAL Routine 03/09/2018 5:39 AM ASSISTANT PASSENGER LOCOMOTIVE ENGINEER TRIGLYCERIDE Routine 03/09/2018 5:39 AM ASSISTANT PASSENGER LOCOMOTIVE ENGINEER LIPASE Routine 03/09/2018 5:39 AM ASSISTANT PASSENGER LOCOMOTIVE ENGINEER COMPREHENSIVE METABOLIC PANEL Routine 5:39 AM ASSISTANT PASSENGER LOCOMOTIVE ENGINEER POC GLUCOSE Routine 03/09/2018 5:27 AM ASSISTANT PASSENGER LOCOMOTIVE ENGINEER POC GLUCOSE Routine 03/09/2018 12:33 AM ASSISTANT PASSENGER LOCOMOTIVE ENGINEER POC GLUCOSE Routine 03/08/2018 9:17 PM ASSISTANT PASSENGER LOCOMOTIVE ENGINEER POC GLUCOSE Routine 03/08/2018 6:22 PM ASSISTANT PASSENGER LOCOMOTIVE ENGINEER POC GLUCOSE Routine 03/08/2018 2:26 PM ASSISTANT PASSENGER LOCOMOTIVE ENGINEER TRIGLYCERIDE Stat 03/08/2018 1:02 PM ASSISTANT PASSENGER LOCOMOTIVE ENGINEER UPPER ENDOSCOPY REPORT 8 12:04 PM ASSISTANT PASSENGER LOCOMOTIVE ENGINEER PATHOLOGY Pathology 03/08/2018 11:55 AM ASSISTANT PASSENGER LOCOMOTIVE ENGINEER ESOPHAGOGASTRODUODENOSCOPY 03/08 11:37 AM ASSISTANT PASSENGER LOCOMOTIVE ENGINEER POC GLUCOSE Routine 03/08/2018 10:54 AM ASSISTANT PASSENGER LOCOMOTIVE ENGINEER POC GLUCOSE Routine 03/08/2018 10:13 AM ASSISTANT PASSENGER LOCOMOTIVE ENGINEER POC GLUCOSE Routine 03/08/2018 8:01 AM ASSISTANT PASSENGER LOCOMOTIVE ENGINEER CBC WITH DIFFERENTIAL Routine 03/08/2018 5:15 AM ASSISTANT PASSENGER LOCOMOTIVE ENGINEER LIPASE Routine 03/08/2018 5:15 AM ASSISTANT PASSENGER LOCOMOTIVE ENGINEER HEMOGLOBIN A1C Routine 03/08/2018 5:15 AM ASSISTANT PASSENGER LOCOMOTIVE ENGINEER LIPID PANEL Routine 03/08/2018 5:15 AM ASSISTANT PASSENGER LOCOMOTIVE ENGINEER BASIC METABOLIC PANEL Routine 03/08/2018 5:15 AM ASSISTANT PASSENGER LOCOMOTIVE ENGINEER POC GLUCOSE Routine 03/08/2018 3:23 AM ASSISTANT PASSENGER LOCOMOTIVE ENGINEER URINALYSIS W/REFLEX MICROSCOPIC Stat 03/07/2018 11:04 PM ASSISTANT PASSENGER LOCOMOTIVE ENGINEER POC GLUCOSE Routine 03/07/2018 10:58 PM ASSISTANT PASSENGER LOCOMOTIVE ENGINEER CT ABDOMEN PELVIS W CONTRAST Stat 12/2017 6:24 PM ASSISTANT PASSENGER LOCOMOTIVE ENGINEER CBC WITH DIFFERENTIAL Stat 03/07/2018 2:15 PM ASSISTANT PASSENGER LOCOMOTIVE ENGINEER LIPASE Stat 03/07/2018 2:15 PM ASSISTANT PASSENGER LOCOMOTIVE ENGINEER COMPREHENSIVE METABOLIC PANEL Stat 2:15 PM ASSISTANT PASSENGER LOCOMOTIVE ENGINEER documented in this encounter Results * (ABNORMAL) POC GLUCOSE (03/09/2018 1:50 PM ASSISTANT PASSENGER LOCOMOTIVE ENGINEER) GLUCOSE POC 123(H) 74 - 99 mg/dL 03/09/2018 2:07 PM ASSISTANT PASSENGER LOCOMOTIVE ENGINEER [facility] COMMENT, GLU POC Notified RN/MD 03/09/2018 2:07 PM ASSISTANT PASSENGER LOCOMOTIVE ENGINEER [facility] ENGINEER NAME POC STEPHON MIRELES 03/09/2018 2:07 PM ASSISTANT PASSENGER LOCOMOTIVE ENGINEER [facility] Whole blood specimen (specimen) 03/09/2018 1:50 PM ASSISTANT PASSENGER LOCOMOTIVE ENGINEER 03/09/2018 2:07 PM ASSISTANT PASSENGER LOCOMOTIVE ENGINEER Alize Morel DO POINT OF CARE TESTIN G [facility] [employer] [facility] CLIA# [id number] [address] [place] [address] * POC GLUCOSE (03/09/2018 10:18 AM ASSISTANT PASSENGER LOCOMOTIVE ENGINEER) GLUCOSE POC 85 74 - 99 mg/dL 03/09/2018 10:42 AM ASSISTANT PASSENGER LOCOMOTIVE ENGINEER [facility] [employer] ENGINEER NAME SANDEEP FIORE 03/09/2018 10:42 AM [facility] [employer] [facility] Whole blood specimen (specimen) 03/09/2018 10:18 AM ASSISTANT PASSENGER LOCOMOTIVE ENGINEER 03/09/2018 10:42 AM ASSISTANT PASSENGER LOCOMOTIVE ENGINEER Alize Morel DO POINT OF CARE TESTIN G [facility] [employer] [facility] CLIA# [id number] [address] [place] [address] * LIPASE (03/09/2018 5:39 AM ASSISTANT PASSENGER LOCOMOTIVE ENGINEER) Pathologist [facility] LIPASE 16 13 - 60 U/L 03/09/2018 7:10 AM [facility] [employer] [facility] Blood 03/09/2018 5:39 AM ASSISTANT PASSENGER LOCOMOTIVE ENGINEER 03/09/2018 6:24 AM ASSISTANT PASSENGER LOCOMOTIVE ENGINEER Alize Morel DO CHEMISTRY ORDERABLES [facility] [employer] [facility] CLIA# [id number] [address] [place] [address] * CBC WITH DIFFERENTIAL (03/09/2018 5:39 AM ASSISTANT PASSENGER LOCOMOTIVE ENGINEER) WBC 5.3 4.0 - 9.8 K/uL 03/09/2018 6:44 AM [facility] RBC 4.06 3.90 - 4.90 M/uL 03/09/2018 6:44 AM ASSISTANT PASSENGER LOCOMOTIVE ENGINEER [employer] [facility] HEMOGLOBIN 12.1 11.8 - 14.8 g/dL 03/09/2018 6:44 AM [facility] - [facility] HEMATOCRIT 37.6 35.5 - 44.0 % 03/09/2018 6:44 AM ASSISTANT PASSENGER LOCOMOTIVE ENGINEER [facility] - [facility] MCV 92.6 82.0 - 99.0 fL 03/09/2018 6:44 AM ASSISTANT PASSENGER LOCOMOTIVE ENGINEER [facility] - [facility] MCH 29.8 27.2 - 32.6 pg 03/09/2018 6:44 AM [facility] - [facility] MCHC 32.2 31.5 - 35.5 g/dL 03/09/2018 6:44 AM ASSISTANT PASSENGER LOCOMOTIVE ENGINEER [facility] - [facility] RDW 13.7 11.5 - 14.5 % 03/09/2018 6:44 AM ASSISTANT PASSENGER LOCOMOTIVE ENGINEER [facility] - [facility] RDW-STDEV 46.6 37.1 - 48.7 fL 03/09/2018 6:44 AM [facility] - [facility] PLATELETS 242 140 - 350 K/uL 03/09/2018 6:44 AM ASSISTANT PASSENGER LOCOMOTIVE ENGINEER [facility] - [facility] MPV 9.3 9.3 - 12.4 fL 03/09/2018 6:44 AM ASSISTANT PASSENGER LOCOMOTIVE ENGINEER [facility] NEUTROPHILS 49 % 03/09/2018 6:44 AM [facility] LYMPHOCYTES 43 % 03/09/2018 6:44 AM [facility] MONOCYTES 6 % 03/09/2018 6:44 AM [facility] EOSINOPHILS 1 % 03/09/2018 6:44 AM [facility] BASOPHILS 1 % 03/09/2018 6:44 AM [facility] IMMATURE GRANULOCYTES 0 % 03/09/2018 6:44 AM [facility] NEUTROPHIL ABSOLUTE 2.59 1.90 - 7.00 K/uL 03/09/2018 6:44 AM [facility] LYMPHOCYTE ABSOLUTE 2.23 0.70 - 4.50 K/uL 03/09/2018 6:44 AM [facility] MONOCYTE ABSOLUTE 0.31 0.10 - 1.30 K/uL 03/09/2018 6:44 AM [facility] EOSINOPHIL ABSOLUTE 0.07 0.00 - 0.70 K/uL 03/09/2018 6:44 AM [facility] BASOPHILS ABSOLUTE 0.03 0.00 - 0.20 K/uL 03/09/2018 6:44 AM [facility] IMMATURE GRANULOCYTES ABSOLUTE 0.02 0.00 - 0.03 K/uL 03/09/2018 6:44 AM [facility] Blood 03/09/2018 5:39 AM ASSISTANT PASSENGER LOCOMOTIVE ENGINEER 03/09/2018 6:24 AM ASSISTANT PASSENGER LOCOMOTIVE ENGINEER Ceasar Vega MD HEMATOLOGY ORDERABLE S Performing Organization Address [facility] Co de Phone Number [facility] [employer] [facility]# [id number] [address] [place] [address] * (ABNORMAL) TRIGLYCERIDE (03/09/2018 5:39 AM ASSISTANT PASSENGER LOCOMOTIVE ENGINEER) TRIGLYCERIDE 2,339(H) <150 mg/dL 03/09/2018 7:22 AM ASSISTANT PASSENGER LOCOMOTIVE ENGINEER [facility] Blood 03/09/2018 5:39 AM ASSISTANT PASSENGER LOCOMOTIVE ENGINEER 03/09/2018 6:24 AM ASSISTANT PASSENGER LOCOMOTIVE ENGINEER Narrative [facility] - 03/09/2018 7:22 AM ASSISTANT PASSENGER LOCOMOTIVE ENGINEER TRIGLYCERIDES ? mg/dL Normal ?< 150 Borderline High ?150 - 199 High ? 200 - 499 Very High ? >= 500 Based on AHA/NCEP Guidelines. Alize Morel DO CHEMISTRY ORDERABLES Performing Organization Address [facility] Co de Phone Number [facility] [employer] [facility]# [id number] [address] [place] [address] * (ABNORMAL) COMPREHENSIVE METABOLIC PANEL (03/09/2018 5:39 AM ASSISTANT PASSENGER LOCOMOTIVE ENGINEER) Pathologist [facility] SODIUM 137 136 - 145 mmol/L 03/09/2018 7:10 AM ASSISTANT PASSENGER LOCOMOTIVE ENGINEER [facility] [employer] - [facility] POTASSIUM 3.8 3.5 - 5.0 mmol/L 03/09/2018 7:10 AM ASSISTANT PASSENGER LOCOMOTIVE ENGINEER [employer] [facility] - . [facility] CHLORIDE 101 98 - 107 mmol/L 03/09/2018 7:10 AM ASSISTANT PASSENGER LOCOMOTIVE ENGINEER [facility] - [facility] CO2 22 22 - 29 mmol/L 03/09/2018 7:10 AM ASSISTANT PASSENGER LOCOMOTIVE ENGINEER [facility] - [facility] CALCIUM 8.6 8.6 - 10.2 mg/dL 03/09/2018 7:10 AM [facility] BUN 5(L) 6 - 20 mg/dL 03/09/2018 7:10 AM [facility] CREATININE 0.56 0.51 - 0.95 mg/dL 03/09/2018 7:10 AM [facility] GLUCOSE 85 74 - 99 mg/dL 03/09/2018 7:10 AM [facility] TOTAL PROTEIN 5.9(L) 6.7 - 8.6 g/dL 03/09/2018 7:10 AM ASSISTANT PASSENGER LOCOMOTIVE ENGINEER [facility] ALBUMIN 3.9 3.5 - 5.2 g/dL 03/09/2018 7:10 AM ASSISTANT PASSENGER LOCOMOTIVE ENGINEER [facility] BILIRUBIN TOTAL 0.3 0.3 - 1.2 mg/dL 03/09/2018 7:10 AM [facility] ALKALINE PHOSPHATASE 49 35 - 104 U/L 03/09/2018 7:10 AM ASSISTANT PASSENGER LOCOMOTIVE ENGINEER [facility] AST 14 <33 U/L 03/09/2018 7:10 AM ASSISTANT PASSENGER LOCOMOTIVE ENGINEER [facility] ALT 9 <34 U/L 03/09/2018 7:10 AM ASSISTANT PASSENGER LOCOMOTIVE ENGINEER [facility] GFR >60 >=60 mL/min/1.7 3 sq meter 03/09/2018 7:10 AM [facility] Comment: eGFR [...] GFR, >60 >=60 mL/min/1.7 3 sq meter 03/09/2018 7:10 AM [facility] ANION GAP 14 8 - 16 mmol/L 03/09/2018 7:10 AM ASSISTANT PASSENGER LOCOMOTIVE ENGINEER [facility] Blood 03/09/2018 5:39 AM ASSISTANT PASSENGER LOCOMOTIVE ENGINEER 03/09/2018 6:24 AM ASSISTANT PASSENGER LOCOMOTIVE ENGINEER Narrative [facility] LABORATORY SERVICES [facility] - 03/09/2018 7:10 AM ASSISTANT PASSENGER LOCOMOTIVE ENGINEER Samples containing indocyanine green cause interferences on Total and/or Direct Bilirubin and must not be measured. Alize Morel CHEMISTRY ORDERABLES [facility]# [id number] [address] [place] [address] * POC GLUCOSE (03/09/2018 5:27 AM ASSISTANT PASSENGER LOCOMOTIVE ENGINEER) GLUCOSE POC 75 74 - 99 mg/dL 03/09/2018 5:46 AM ASSISTANT PASSENGER LOCOMOTIVE ENGINEER [facility] [employer] ENGINEER NAME ALIZE CANTU 03/09/2018 5:46 AM ASSISTANT PASSENGER LOCOMOTIVE ENGINEER [facility] Whole blood specimen (specimen) 03/09/2018 5:27 AM ASSISTANT PASSENGER LOCOMOTIVE ENGINEER 03/09/2018 5:46 AM ASSISTANT PASSENGER LOCOMOTIVE ENGINEER Alize Morel POINT OF CARE TESTIN G Performing Organization Address City/[facility]/ZIP Co de Phone Number [facility] [employer] [facility] CLID# [id number] [address] [place] [address] * POC GLUCOSE (03/09/2018 12:33 AM ASSISTANT PASSENGER LOCOMOTIVE ENGINEER) GLUCOSE POC 86 74 - 99 mg/dL 03/09/2018 12:48 AM ASSISTANT PASSENGER LOCOMOTIVE ENGINEER [facility] LAB[facility] [employer] ENGINEER NAME ALIZE CANTU 03/09/2018 12:48 AM ASSISTANT PASSENGER LOCOMOTIVE ENGINEER [facility] Whole blood specimen (specimen) 03/09/2018 12:33 AM ASSISTANT PASSENGER LOCOMOTIVE ENGINEER 03/09/2018 12:48 AM ASSISTANT PASSENGER LOCOMOTIVE ENGINEER Alize Morel DO POINT OF CARE TESTIN G [facility] CLIA# [id number] [address] [place] [address] * POC GLUCOSE (03/08/2018 9:17 PM ASSISTANT PASSENGER LOCOMOTIVE ENGINEER) GLUCOSE POC 92 74 - 99 mg/dL 03/08/2018 9:35 PM ASSISTANT PASSENGER LOCOMOTIVE ENGINEER [facility] [employer] ENGINEER NAME POC ALIZE DARLING 03/08/2018 9:35 PM ASSISTANT PASSENGER LOCOMOTIVE ENGINEER [facility] Whole blood specimen (specimen) 03/08/2018 9:17 PM ASSISTANT PASSENGER LOCOMOTIVE ENGINEER 03/08/2018 9:35 PM ASSISTANT PASSENGER LOCOMOTIVE ENGINEER Alize Morel DO POINT OF CARE TESTIN Maggie Performing Organization Address City/[facility]/ZIP Co de Phone Number [facility] [id number] [address] [facility] [address] [address] * POC GLUCOSE (03/08/2018 6:22 PM ASSISTANT PASSENGER LOCOMOTIVE ENGINEER) GLUCOSE POC 76 74 - 99 mg/dL 03/08/2018 6:35 PM ASSISTANT PASSENGER LOCOMOTIVE ENGINEER [facility] ENGINEER NAME POC HARVEY RENDON (ELI) 03/08/2018 6:35 PM ASSISTANT PASSENGER LOCOMOTIVE ENGINEER [facility] Whole blood specimen (specimen) 03/08/2018 6:22 PM ASSISTANT PASSENGER LOCOMOTIVE ENGINEER 03/08/2018 6:35 PM ASSISTANT PASSENGER LOCOMOTIVE ENGINEER Alize Morel DO POINT OF CARE FLY Serrano Performing Organization Address City/[facility]/ZIP Co de Phone Number [facility] CLIA# [id number] [address] [place] [address] * POC GLUCOSE (03/08/2018 2:26 PM ASSISTANT PASSENGER LOCOMOTIVE ENGINEER) GLUCOSE POC 92 74 - 99 mg/dL 03/08/2018 2:42 PM ASSISTANT PASSENGER LOCOMOTIVE ENGINEER [facility] ENGINEER NAME POC HARVEY RENDON (ELI) 03/08/2018 2:42 PM ASSISTANT PASSENGER LOCOMOTIVE ENGINEER [facility] Whole blood specimen (specimen) 03/08/2018 2:26 PM ASSISTANT PASSENGER LOCOMOTIVE ENGINEER 03/08/2018 2:42 PM ASSISTANT PASSENGER LOCOMOTIVE ENGINEER Alize Morel DO POINT OF CARE TESTIN G Performing Organization Address [facility] Co de Phone Number [facility]# [id number] [address] [place] [address] * (ABNORMAL) TRIGLYCERIDE (03/08/2018 1:02 PM ASSISTANT PASSENGER LOCOMOTIVE ENGINEER) TRIGLYCERIDE 2,887(H) <150 mg/dL 03/08/2018 2:32 PM ASSISTANT PASSENGER LOCOMOTIVE ENGINEER [facility] Blood BLOOD SPECIMEN / Unknown Venipuncture / Unknown 03/08/2018 1:02 PM ASSISTANT PASSENGER LOCOMOTIVE ENGINEER 03/08/2018 1:47 PM ASSISTANT PASSENGER LOCOMOTIVE ENGINEER Narrative [facility] - 03/08/2018 2:32 PM ASSISTANT PASSENGER LOCOMOTIVE ENGINEER TRIGLYCERIDES ? mg/dL Normal ?< 150 Borderline High ?150 - 199 High ? 200 - 499 Very High ? >= 500 Based on AHA/NCEP Guidelines. Ceasar Vega MD CHEMISTRY ORDERABLES Performing Organization Address [facility] Co de Phone Number [facility]# [id number] [address] [place] [address] * UPPER ENDOSCOPY REPORT (03/08/2018 12:04 PM ASSISTANT PASSENGER LOCOMOTIVE ENGINEER) Narrative Procedure Note Ceasar Vega MD - 03/08/2018 12:03 PM CST [facility] Endoscopy Patient Name: Linda Doss Procedure Date: 03/08/2018 Date of : 1975 Admit Type: Outpatient Attending MD: Ceasar Vega MD Procedure: Upper GI endoscopy Indications: Upper abdominal pain Providers: Ceasar Vega MD Referring MD: Medicines: Monitored Anesthesia Care Complications: No immediate complications. Procedure: Informed consent was obtained for the procedure, including moderate sedation after risks were discussed. Based on the pre-procedure assessment, including review of the patient's medical history, medications, allergies, and review of systems, the patient was deemed to be an appropriate candidate for sedation. A timeout was performed. Continuous ECG monitoring, pulse oximetry, blood pressure monitoring, and direct observation were performed. The Endoscope was introduced through the mouth, and advanced to the third part of duodenum. Estimated Blood Loss: Estimated blood loss: none. Findings: Mild mucosal changes characterized by granularity were found in the lower third of the esophagus. Biopsies were taken with a cold forceps for histology. Diffuse mildly erythematous mucosa was found in the entire examined stomach. Biopsies were taken with a cold forceps for histology. Patchy mildly erythematous mucosa was found in the duodenal bulb. The examined duodenum was normal. Impression: - Granular mucosa in the esophagus. Biopsied. - Erythematous mucosa in the stomach. Biopsied. - Erythematous duodenopathy. - Normal examined duodenum. Recommendation: - Await pathology results. - Diet and lipid management per medicine. - No new GI recomendations. Will sign off for now. Please call with questions. She can follow up in the office if needed. Ceasar Vega MD 03/08/2018 12:03:07 PM This report has been signed electronically. Number of Addenda: [address]; [place] [address] Ceasar Vega MD GI PROCEDURE ORDERAB LES * PATHOLOGY (03/08/2018 11:55 AM ASSISTANT PASSENGER LOCOMOTIVE ENGINEER) CASE REPORT Surgical Pathology Report ? Case: [id number] ? Authorizing Provider: ??Ceasar Vega MD ?Collected: ? 03/08/2018 11:55 AM ? Ordering Location: ? [facility] [address] [place] ??Received: ?03/10/2018 09:09 AM ? Pathologist: ? Jam Montgomery DO ? Specimen: ?Stomach, bx ? 03/11/2018 5:47 PM [facility] FINAL DIAGNOSIS Stomach, endoscopic biopsy: - Mild chronic gastritis. 03/11/2018 5:47 PM [facility] IMEN DESCRIPTION Stomach biopsy. 03/11/2018 5:47 PM [facility] OPERATIVE PROCEDURE Esophagogastroduodeno scopy. 03/11/2018 5:47 PM [facility] CLINICAL DIAGNOSIS Rule out H. pylori infection. 03/11/2018 5:47 PM [facility] GROSS DESCRIPTION The specimen is received in a single container labeled Linda Doss, stomach biopsy and consists of seven pieces of white tissue that are 0.1 to 0.4 cm in greatest dimension. The entire specimen is submitted in cassette A1. [facility]/lkp 03/11/2018 5:47 PM [facility] MICROSCOPIC DESCRIPTION The slides are received labeled [id number] and Linda Doss. Sections of the stomach biopsy show fragments of antral and body-type mucosa with mild chronic gastritis characterized by a very mild patchy lamina propria inflammatory cell infiltrate with scattered plasma cells, singly and in small clusters. There are intermingled lymphocytes and occasional eosinophils. Significant neutrophilic inflammation is not seen. No ulcers, erosions, or granulomas are identified. No Helicobacter pylori is identified on routine H&E-stained slides. There are intermingled fragments of relatively unremarkable squamous mucosa that likely represent a contaminant, possible esophageal mucosa. 03/11/2018 5:47 PM ASSISTANT PASSENGER LOCOMOTIVE ENGINEER [facility] COMMENT Special stain and/or immunohistochemical results are interpreted with controls that demonstrate appropriate staining reactions. Note on use of immunocytochemistry reagents: This test was developed and its performance characteristic determined by [facility], Department of Laboratory Medicine. It has not been cleared or approved by the U.S. Food and Drug Administration. The FDA has determined that such clearance or approval is not necessary. The test is used for clinical purpose. It should not be regarded as investigational or for research. This laboratory is certified to perform high complexity testing. Case types starting with WS, WF, WB and WH are performed by [address], [address]. All other case types are performed by [address], [address]. 03/11/2018 5:47 PM ASSISTANT PASSENGER LOCOMOTIVE ENGINEER [facility] Tissue ENTIRE STOMACH / Unknown Collection / Unknown 03/08/2018 11:55 AM ASSISTANT PASSENGER LOCOMOTIVE ENGINEER 03/10/2018 9:09 AM ASSISTANT PASSENGER LOCOMOTIVE ENGINEER Comment:Gastritis, r/o h.pyl miguel Ceasar Vega MD PATHOLOGY/CYTOLOGY O RDERABLES [facility] CLIA# [id number] [address] [place] [address] * (ABNORMAL) POC GLUCOSE (03/08/2018 10:54 AM ASSISTANT PASSENGER LOCOMOTIVE ENGINEER) GLUCOSE POC 114(H) 74 - 99 mg/dL 03/08/2018 11:07 AM ASSISTANT PASSENGER LOCOMOTIVE ENGINEER [facility] [employer] ENGINEER NAME POC AWILDA PAGAN 03/08/2018 11:07 AM [facility] Whole blood specimen (specimen) 03/08/2018 10:54 AM ASSISTANT PASSENGER LOCOMOTIVE ENGINEER 03/08/2018 11:07 AM ASSISTANT PASSENGER LOCOMOTIVE ENGINEER Alize Morel DO POINT OF CARE TESTIN Maggie Performing Organization Address [facility]/ZIP Co de Phone Number [facility] CLIA# [id number] [address] [place] [address] * (ABNORMAL) POC GLUCOSE (03/08/2018 10:13 AM ASSISTANT PASSENGER LOCOMOTIVE ENGINEER) GLUCOSE POC 114(H) 74 - 99 mg/dL 03/08/2018 10:28 AM ASSISTANT PASSENGER LOCOMOTIVE ENGINEER [employer] LABORATORY SERVICES [facility] COMMENT, GLU POC Notified RN/MD 03/08/2018 10:28 AM ASSISTANT PASSENGER LOCOMOTIVE ENGINEER [facility] LABORATORY SERVICES [facility] [employer] ENGINEER NAME POC JEFF BLOOD 03/08/2018 10:28 AM ASSISTANT PASSENGER LOCOMOTIVE ENGINEER [facility] Whole blood specimen (specimen) 03/08/2018 10:13 AM ASSISTANT PASSENGER LOCOMOTIVE ENGINEER 03/08/2018 10:28 AM ASSISTANT PASSENGER LOCOMOTIVE ENGINEER Alize Morel DO POINT OF CARE TESTJERONIMO Serrano Performing Organization Address [facility]/ZIP Co de Phone Number [facility] [employer] [facility] CLIA# [id number] [address] [place] [address] * (ABNORMAL) POC GLUCOSE (03/08/2018 8:01 AM ASSISTANT PASSENGER LOCOMOTIVE ENGINEER) GLUCOSE POC 129(H) 74 - 99 mg/dL 03/08/2018 8:26 AM ASSISTANT PASSENGER LOCOMOTIVE ENGINEER [facility] ENGINEER NAME POC HARVEY RENDON (ELI) 03/08/2018 8:26 AM ASSISTANT PASSENGER LOCOMOTIVE ENGINEER [facility] Whole blood specimen (specimen) 03/08/2018 8:01 AM ASSISTANT PASSENGER LOCOMOTIVE ENGINEER 03/08/2018 8:25 AM ASSISTANT PASSENGER LOCOMOTIVE ENGINEER Alize Morel DO POINT OF CARE TESTIN Maggie Performing Organization Address City/[facility]/ZIP Co de Phone Number [facility] CLIA# [id number] [address] [place] [address] * (ABNORMAL) HEMOGLOBIN A1C (03/08/2018 5:15 AM ASSISTANT PASSENGER LOCOMOTIVE ENGINEER) HEMOGLOBIN A1C 8.7(H) <5.7 % 03/08/2018 10:47 AM [facility] EST. AVG GLUCOSE, A1C 203 mg/dL 03/08/2018 10:47 AM [facility] Blood Venipuncture / Unknown 03/08/2018 5:15 AM ASSISTANT PASSENGER LOCOMOTIVE ENGINEER 03/08/2018 5:59 AM ASSISTANT PASSENGER LOCOMOTIVE ENGINEER Narrative [facility] - 03/08/2018 10:47 AM ASSISTANT PASSENGER LOCOMOTIVE ENGINEER HGB A1C INTERPRETATION NORMAL: ? <5.7% PRE-DIABETES: 5.7 - 6.4% DIABETES: ? 6.5% OR GREATER Alize Morel DO CHEMISTRY ORDERABLES Performing Organization Address City/[facility]/ZIP Co de Phone Number [facility] CLIA# [id number] [address] [facility] [place] [address] * LIPASE (03/08/2018 5:15 AM ASSISTANT PASSENGER LOCOMOTIVE ENGINEER) Pathologist [facility] LIPASE 16 13 - 60 U/L 03/08/2018 8:15 AM [facility] Blood Venipuncture / Unknown 03/08/2018 5:15 AM ASSISTANT PASSENGER LOCOMOTIVE ENGINEER 03/08/2018 5:59 AM ASSISTANT PASSENGER LOCOMOTIVE ENGINEER Alize Morel DO CHEMISTRY ORDERABLES Performing Organization Address [facility] Co de Phone Number [facility] CLIA# [id number] [address] [facility] [place] [address] * (ABNORMAL) BASIC METABOLIC PANEL (03/08/2018 5:15 AM ASSISTANT PASSENGER LOCOMOTIVE ENGINEER) [facility] SODIUM 135(L) 136 - 145 mmol/L 03/08/2018 6:50 AM [facility] POTASSIUM 4.0 3.5 - 5.0 mmol/L 03/08/2018 6:50 AM [facility] Comment: Slightly hemolyzed. Result may be falsely elevated. CHLORIDE 96(L) 98 - 107 mmol/L 03/08/2018 6:50 AM [facility] [employer] [facility] - . [facility] CO2 22 22 - 29 mmol/L 03/08/2018 6:50 AM [facility] [employer] [facility] - . [facility] CALCIUM 8.4(L) 8.6 - 10.2 mg/dL 03/08/2018 6:50 AM [facility] [employer] [facility] - . [facility] BUN 9 6 - 20 mg/dL 03/08/2018 6:50 AM [facility] [employer] [facility]. [facility] CREATININE 0.53 0.51 - 0.95 mg/dL 03/08/2018 6:50 AM [facility] [employer] [facility] - . [facility] GLUCOSE 117(H) 74 - 99 mg/dL 03/08/2018 6:50 AM [facility] [employer] [facility] GFR >60 >=60 mL/min/1.7 3 sq meter 03/08/2018 6:50 AM [facility] [employer] [facility] Comment: eGFR has not [...] GFR, >60 >=60 mL/min/1.7 3 sq meter 03/08/2018 6:50 AM [facility] [employer] [facility] ANION GAP 17(H) 8 - 16 mmol/L 03/08/2018 6:50 AM [facility] [employer] [facility] Blood Venipuncture / Unknown 03/08/2018 5:15 AM ASSISTANT PASSENGER LOCOMOTIVE ENGINEER 03/08/2018 5:59 AM ASSISTANT PASSENGER LOCOMOTIVE ENGINEER Ceasar Vega MD CHEMISTRY ORDERABLES [employer] [facility] CLIA# [id number] [address] [place] [address] * (ABNORMAL) CBC WITH DIFFERENTIAL (03/08/2018 5:15 AM ASSISTANT PASSENGER LOCOMOTIVE ENGINEER) [facility] WBC 6.6 4.0 - 9.8 K/uL 03/08/2018 6:23 AM [facility] RBC 4.10 3.90 - 4.90 M/uL 03/08/2018 6:23 AM [facility] HEMOGLOBIN 12.4 11.8 - 14.8 g/dL 03/08/2018 6:23 AM [facility] HEMATOCRIT 38.0 35.5 - 44.0 % 03/08/2018 6:23 AM [facility] MCV 92.7 82.0 - 99.0 fL 03/08/2018 6:23 AM [facility] MCH 30.2 27.2 - 32.6 pg 03/08/2018 6:23 AM [facility]ATORY SERVICES - [facility] MCHC 32.6 31.5 - 35.5 g/dL 03/08/2018 6:23 AM [facility] RDW 13.7 11.5 - 14.5 % 03/08/2018 6:23 AM [facility] SERVICES - . [facility] RDW-STDEV 46.6 37.1 - 48.7 fL 03/08/2018 6:23 AM [facility] SERVICES - . [facility] PLATELETS 259 140 - 350 K/uL 03/08/2018 6:23 AM [facility] MPV 9.2(L) 9.3 - 12.4 fL 03/08/2018 6:23 AM [facility] NEUTROPHILS 48 % 03/08/2018 6:23 AM [facility] LYMPHOCYTES 44 % 03/08/2018 6:23 AM [facility] MONOCYTES 6 % 03/08/2018 6:23 AM [facility] EOSINOPHILS 1 % 03/08/2018 6:23 AM [facility] BASOPHILS 0 % 03/08/2018 6:23 AM [facility] IMMATURE GRANULOCYTES 1 % 03/08/2018 6:23 AM [facility] Comment:IG (Immature Granulo cyte) count includes Metamyelocytes, Myelocytes, and Promyelocytes NEUTROPHIL ABSOLUTE 3.19 1.90 - 7.00 K/uL 03/08/2018 6:23 AM [facility] LYMPHOCYTE ABSOLUTE 2.93 0.70 - 4.50 K/uL 03/08/2018 6:23 AM [facility]. [facility] MONOCYTE ABSOLUTE 0.39 0.10 - 1.30 K/uL 03/08/2018 6:23 AM [facility] [employer] [facility]. [facility] EOSINOPHIL ABSOLUTE 0.07 0.00 - 0.70 K/uL 03/08/2018 6:23 AM [facility] [employer] [facility]. [facility] BASOPHILS ABSOLUTE 0.02 0.00 - 0.20 K/uL 03/08/2018 6:23 AM [facility]. [facility] IMMATURE GRANULOCYTES ABSOLUTE 0.04(H) 0.00 - 0.03 K/uL 03/08/2018 6:23 AM [facility] [employer] [facility] Blood Venipuncture / Unknown 03/08/2018 5:15 AM ASSISTANT PASSENGER LOCOMOTIVE ENGINEER 03/08/2018 5:59 AM ASSISTANT PASSENGER LOCOMOTIVE ENGINEER Ceasar Vega MD HEMATOLOGY ORDERABLE S [facility]# [id number] [address] [facility] [place] [address] * (ABNORMAL) LIPID PANEL (03/08/2018 5:15 AM ASSISTANT PASSENGER LOCOMOTIVE ENGINEER) CHOLESTEROL 635(H) <200 mg/dL 03/08/2018 7:01 AM [facility] [employer] [facility] TRIGLYCERIDE 2,964(H) <150 mg/dL 03/08/2018 7:01 AM [facility] [employer] [facility] HDL 40 - 59 mg/dL 03/08/2018 7:01 AM [facility] Comment: Measured HDL is not accurate when the Triglyceride value exceeds 1200. LDL CALCULATED <100 mg/dL 03/08/2018 7:01 AM [facility] [employer] [facility] Comment:Calculated LDL is no t accurate when the Triglyceride value exceeds 400. NON-HDL CHOLESTEROL <130 mg/dL 03/08/2018 7:01 AM [facility] [employer] [facility] Comment:Non HDL Cholesterol cannot be calculated when the HDL value is suppressed. Blood Venipuncture / Unknown 03/08/2018 5:15 AM ASSISTANT PASSENGER LOCOMOTIVE ENGINEER 03/08/2018 5:59 AM ASSISTANT PASSENGER LOCOMOTIVE ENGINEER [facility] - 03/08/2018 7:01 AM ASSISTANT PASSENGER LOCOMOTIVE ENGINEER TOTAL CHOLESTEROL ??mg/dL ??Desirable <200 ??Borderline [...] Guidelines Reference Ranges for Lipid Panels (NCEP/AMA) Pernell Tapia MD CHEMISTRY ORDERABLES [facility] [id number] [address] [facility] [place] [place] [id number] * (ABNORMAL) POC GLUCOSE (03/08/2018 3:23 AM ASSISTANT PASSENGER LOCOMOTIVE ENGINEER) GLUCOSE POC 138(H) 74 - 99 mg/dL 03/08/2018 3:36 AM [facility] [employer] [facility] ENGINEER NAME POC CONSTANTINO DEL CID 03/08/2018 3:36 AM [facility] Whole blood specimen (specimen) 03/08/2018 3:23 AM ASSISTANT PASSENGER LOCOMOTIVE ENGINEER 03/08/2018 3:36 AM ASSISTANT PASSENGER LOCOMOTIVE ENGINEER Pernell Tapia MD POINT OF CARE TESTIN G [facility] CLIA# [id number] [address] [place] [address] * (ABNORMAL) URINALYSIS WITH REFLEX MICROSCOPIC (03/07/2018 11:04 PM ASSISTANT PASSENGER LOCOMOTIVE ENGINEER) [facility] COLOR UA Yellow Pale to Dark Yellow 03/07/2018 11:23 PM [facility] LABORATORY [facility] CLARITY UA Clear Clear 03/07/2018 11:23 PM [facility] SPECIFIC GRAVITY UA >1.035(H) 1.003 - 1.035 03/07/2018 11:23 PM [facility] PH UA 5.0 5.0 - 8.0 03/07/2018 11:23 PM [facility] LEUKOCYTE ESTERASE UA Negative Negative 03/07/2018 11:23 PM [facility] NITRITE UA Negative Negative 03/07/2018 11:23 PM [facility] PROTEIN UA Negative Negative 03/07/2018 11:23 PM [facility] GLUCOSE UA Negative Negative 03/07/2018 11:23 PM [facility] KETONES UA Negative Negative 03/07/2018 11:23 PM [facility] UROBILINOGEN UA Normal <2.0 mg/dL 8 11:23 PM [facility] BILIRUBIN UA Negative Negative 03/07/2018 11:23 PM [facility] BLOOD UA Negative Negative 03/07/2018 11:23 PM [facility] Urine URINE SPECIMEN OBTAINED BY CLEAN CATCH PROCEDURE / Unknown Collection / Unknown 03/07/2018 11:04 PM ASSISTANT PASSENGER LOCOMOTIVE ENGINEER 03/07/2018 11:11 PM ASSISTANT PASSENGER LOCOMOTIVE ENGINEER Pernell Lind MD URINE ORDERABLES [facility] CLIA# [id number] [address] [place] [address] * (ABNORMAL) POC GLUCOSE (03/07/2018 10:58 PM ASSISTANT PASSENGER LOCOMOTIVE ENGINEER) GLUCOSE POC 130(H) 74 - 99 mg/dL 03/07/2018 11:19 PM [facility] COMMENT, GLU POC Notified RN/MD 03/07/2018 11:19 PM [facility] ENGINEER NAME POC ZURI MCCALL 03/07/2018 11:19 PM [facility] Whole blood specimen (specimen) 03/07/2018 10:58 PM ASSISTANT PASSENGER LOCOMOTIVE ENGINEER 03/07/2018 11:19 PM ASSISTANT PASSENGER LOCOMOTIVE ENGINEER Almas Ortega MD POINT OF CARE TESTIN G [facility]# [id number] [address] [facility] [place] [address] * CT ABDOMEN PELVIS W CONTRAST (03/07/2018 6:24 PM ASSISTANT PASSENGER LOCOMOTIVE ENGINEER) Anatomical Region Laterality Modality Abdomen Computed Tomogra phy 03/07/2018 6:24 PM ASSISTANT PASSENGER LOCOMOTIVE ENGINEER Impressions 03/08/2018 1:23 PM ASSISTANT PASSENGER LOCOMOTIVE ENGINEER IMPRESSION: Status post hysterectomy. 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 No urinary tract obstruction is seen. There is no urinary tract mass. Chronic deformity of the left kidney is noted. No bowel obstruction or acute process. The examination was performed with the adjustment of mA according to the patient size and/or the use of Iterative 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 DICTATION LOCATION: Location 1 - [facility] Narrative 03/08/2018 1:23 PM ASSISTANT PASSENGER LOCOMOTIVE ENGINEER EXAM: CT ABDOMEN AND PELVIS WITH IV CONTRAST DATE: 03/07/2018 6:24 PM HISTORY: Abdominal pain. ?? COMPARISON: None. TECHNIQUE: 5 mm axial images through the abdomen and pelvis following administration of IV contrast. CONTRAST: IOPAMIDOL 61 % INTRAVENOUS SOLUTION ??Given:125 mL FINDINGS: Lung bases are clear. 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 There is no urinary tract obstruction. Chronic deformity of the left kidney is noted. The abdominal aorta is unremarkable with no aneurysm or dissection. The uterus is surgically absent. The bladder is unremarkable. There is no bowel obstruction, fluid collection, free air, or other acute process. The appendix is surgically absent per patient history. The bones are unremarkable. Procedure Note Ceasar Bird MD - 03/08/2018 EXAM: CT ABDOMEN AND PELVIS WITH IV CONTRAST DATE: 03/07/2018 6:24 PM HISTORY: Abdominal pain. COMPARISON: None. TECHNIQUE: 5 mm axial images through the abdomen and pelvis following administration of IV contrast. CONTRAST: IOPAMIDOL 61 % INTRAVENOUS SOLUTION Given:125 mL FINDINGS: Lung bases are clear. 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 There is no urinary tract obstruction. Chronic deformity of the left kidney is noted. The abdominal aorta is unremarkable with no aneurysm or dissection. The uterus is surgically absent. The bladder is unremarkable. There is no bowel obstruction, fluid collection, free air, or other acute process. The appendix is surgically absent per patient history. The bones are unremarkable. IMPRESSION: Status post hysterectomy. 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 No urinary tract obstruction is seen. There is no urinary tract mass. Chronic deformity of the left kidney is noted. No bowel obstruction or acute process. The examination was performed with the adjustment of mA according to the patient size and/or the use of Iterative 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 DICTATION LOCATION: Location 1 - [facility] Pernell Lind MD CT ORDERABLES * LIPASE (03/07/2018 2:15 PM ASSISTANT PASSENGER LOCOMOTIVE ENGINEER) Pathologist [facility] LIPASE 31 13 - 60 U/L 03/07/2018 3:02 PM ASSISTANT PASSENGER LOCOMOTIVE ENGINEER [facility] Blood Venipuncture / Unknown 03/07/2018 2:15 PM ASSISTANT PASSENGER LOCOMOTIVE ENGINEER 03/07/2018 2:25 PM ASSISTANT PASSENGER LOCOMOTIVE ENGINEER Pernell Lind MD CHEMISTRY ORDERABLES [facility] CLIA# [id number] [address] [facility] [place] [place] [address] * (ABNORMAL) COMPREHENSIVE METABOLIC PANEL (03/07/2018 2:15 PM ASSISTANT PASSENGER LOCOMOTIVE ENGINEER) Pathologist [facility] SODIUM 128(L) 136 - 145 mmol/L 03/07/2018 4:50 PM [facility] [employer] [facility] POTASSIUM 3.5 - 5.0 mmol/L 03/07/2018 4:50 PM [facility] [employer] Comment: Gross hemolysis present. ??Result unreliable. CHLORIDE 93(L) 98 - 107 mmol/L 03/07/2018 4:50 PM [facility] CO2 21(L) 22 - 29 mmol/L 03/07/2018 4:50 PM [facility] [employer] LAB[facility]ATORY [facility] CALCIUM 9.2 8.6 - 10.2 mg/dL 03/07/2018 4:50 PM [facility] [employer] LABORATORY [facility] BUN 9 6 - 20 mg/dL 03/07/2018 4:50 PM [facility] [employer] LABORATORY [facility] CREATININE 0.39(L) 0.51 - 0.95 mg/dL 03/07/2018 4:50 PM [facility] [employer] [facility] GLUCOSE 122(H) 74 - 99 mg/dL 03/07/2018 4:50 PM [facility] [employer] [facility] TOTAL PROTEIN 7.3 6.7 - 8.6 g/dL 03/07/2018 4:50 PM [facility] [employer] LABORATORY [facility] ALBUMIN 4.2 3.5 - 5.2 g/dL 03/07/2018 4:50 PM [facility] BILIRUBIN TOTAL 0.2(L) 0.3 - 1.2 mg/dL 03/07/2018 4:50 PM [facility] [employer] [facility] ALKALINE PHOSPHATASE 35 - 104 U/L 03/07/2018 4:50 PM [facility] [employer] [facility] Comment: Gross hemolysis present. ??Result unreliable. AST 6 <33 U/L 03/07/2018 4:50 PM [facility] [employer] Comment: Cleared of chylomicrons. Hemolysis present. Result may be falsely elevated. ALT 16 <34 U/L 03/07/2018 4:50 PM [facility] Comment: Cleared of chylomicrons. Hemolysis present. Result may be falsely elevated. GFR >60 >=60 mL/min/1.7 3 sq meter 03/07/2018 4:50 PM [facility] [employer] [facility] Comment: eGFR has not [...] GFR, >60 >=60 mL/min/1.7 3 sq meter 03/07/2018 4:50 PM [facility] [employer] [facility] ANION GAP 14 8 - 16 mmol/L 03/07/2018 4:50 PM [facility] [employer] [facility] Blood Venipuncture / Unknown 03/07/2018 2:15 PM ASSISTANT PASSENGER LOCOMOTIVE ENGINEER 03/07/2018 2:25 PM ASSISTANT PASSENGER LOCOMOTIVE ENGINEER [facility] [employer] [facility] - 03/07/2018 4:50 PM ASSISTANT PASSENGER LOCOMOTIVE ENGINEER Samples containing indocyanine green cause interferences on Total and/or Direct Bilirubin and must not be measured. Pernell Lind MD CHEMISTRY ORDERABLES [facility]# [id number] [address] [facility] [place] [address] * (ABNORMAL) CBC WITH DIFFERENTIAL (03/07/2018 2:15 PM ASSISTANT PASSENGER LOCOMOTIVE ENGINEER) WBC 7.8 4.0 - 9.8 K/uL 03/07/2018 2:36 PM [facility] [employer] [facility] RBC 4.69 3.90 - 4.90 M/uL 03/07/2018 2:36 PM [facility] [employer] [facility] HEMOGLOBIN 14.7 11.8 - 14.8 g/dL 03/07/2018 2:36 PM [facility] [employer] [facility] HEMATOCRIT 42.4 35.5 - 44.0 % 03/07/2018 2:36 PM [facility] [employer] [facility] MCV 90.4 82.0 - 99.0 fL 03/07/2018 2:36 PM ASSISTANT PASSENGER LOCOMOTIVE ENGINEER [employer] [facility] MCH 31.3 27.2 - 32.6 pg 03/07/2018 2:36 PM ASSISTANT PASSENGER LOCOMOTIVE ENGINEER [employer] [facility] MCHC 34.7 31.5 - 35.5 g/dL 03/07/2018 2:36 PM ASSISTANT PASSENGER LOCOMOTIVE ENGINEER [employer] [facility] RDW 13.6 11.5 - 14.5 % 03/07/2018 2:36 PM ASSISTANT PASSENGER LOCOMOTIVE ENGINEER [employer] [facility] RDW-STDEV 44.3 37.1 - 48.7 fL 03/07/2018 2:36 PM ASSISTANT PASSENGER LOCOMOTIVE ENGINEER [employer] [facility] PLATELETS 339 140 - 350 K/uL 03/07/2018 2:36 PM ASSISTANT PASSENGER LOCOMOTIVE ENGINEER [employer] [facility] MPV 9.5 9.3 - 12.4 fL 03/07/2018 2:36 PM ASSISTANT PASSENGER LOCOMOTIVE ENGINEER [employer] [facility] NEUTROPHILS 60 % 03/07/2018 2:36 PM ASSISTANT PASSENGER LOCOMOTIVE ENGINEER [employer] [facility] LYMPHOCYTES 33 % 03/07/2018 2:36 PM ASSISTANT PASSENGER LOCOMOTIVE ENGINEER [employer] MONOCYTES 5 % 03/07/2018 2:36 PM ASSISTANT PASSENGER LOCOMOTIVE ENGINEER [employer] [facility] EOSINOPHILS 1 % 03/07/2018 2:36 PM ASSISTANT PASSENGER LOCOMOTIVE ENGINEER [employer] BASOPHILS 1 % 03/07/2018 2:36 PM ASSISTANT PASSENGER LOCOMOTIVE ENGINEER [employer] [facility] IMMATURE GRANULOCYTES 1 % 03/07/2018 2:36 PM ASSISTANT PASSENGER LOCOMOTIVE ENGINEER [employer] Comment:IG (Immature Granulo cyte) count includes Metamyelocytes, Myelocytes, and Promyelocytes NEUTROPHIL ABSOLUTE 4.67 1.90 - 7.00 K/uL 03/07/2018 2:36 PM ASSISTANT PASSENGER LOCOMOTIVE ENGINEER [employer] [facility] LYMPHOCYTE ABSOLUTE 2.60 0.70 - 4.50 K/uL 03/07/2018 2:36 PM ASSISTANT PASSENGER LOCOMOTIVE ENGINEER [employer] [facility] MONOCYTE ABSOLUTE 0.37 0.10 - 1.30 K/uL 03/07/2018 2:36 PM ASSISTANT PASSENGER LOCOMOTIVE ENGINEER [employer] [facility] EOSINOPHIL ABSOLUTE 0.08 0.00 - 0.70 K/uL 03/07/2018 2:36 PM ASSISTANT PASSENGER LOCOMOTIVE ENGINEER [employer] [facility] BASOPHILS ABSOLUTE 0.04 0.00 - 0.20 K/uL 03/07/2018 2:36 PM ASSISTANT PASSENGER LOCOMOTIVE ENGINEER [facility] LABORATORY [facility] IMMATURE GRANULOCYTES ABSOLUTE 0.05(H) 0.00 - 0.03 K/uL 03/07/2018 2:36 PM ASSISTANT PASSENGER LOCOMOTIVE ENGINEER [facility] Blood Venipuncture / Unknown 03/07/2018 2:15 PM ASSISTANT PASSENGER LOCOMOTIVE ENGINEER 03/07/2018 2:25 PM ASSISTANT PASSENGER LOCOMOTIVE ENGINEER Pernell Lind MD HEMATOLOGY ORDERABLE S [facility] CLIA# [id number] [address] [place] [place] [address] documented in this encounter Visit Diagnoses Diagnosis Abdominal pain, unspecified abdominal location- Primary Type 2 diabetes mellitus without complication, with long-term current use of insulin Hypertriglyceridemia Pure hyperglyceridemia Hypothyroidism Unspecified hypothyroidism Hyponatremia Hyposmolality and/or hyponatremia Metabolic syndrome Dysmetabolic Syndrome X Type 2 diabetes mellitus without complication, with long-term current use of insulin Hypertriglyceridemia Pure hyperglyceridemia Tobacco use Tobacco use disorder Hypothyroidism Unspecified hypothyroidism Epigastric abdominal pain Abdominal pain, epigastric GERD (gastroesophageal reflux disease) Esophageal reflux Abdominal pain Abdominal pain, unspecified site documented in this encounter Administered Medications Inactive Administered Medications - up to 3 most recent administrations Medication Order MAR Action Action Date Dose Rate Site acetaminophen (TYLENOL) tablet 650 mg 650 mg, Oral, EVERY 6 HOURS PRN, Starting on 03/08/18 at 1358, Until 03/09/18 at 1738, Pain, Break-Through, Routine Given 03/09/2018 5:34 AM ASSISTANT PASSENGER LOCOMOTIVE ENGINEER 650 mg Given 03/08/2018 8:06 PM ASSISTANT PASSENGER LOCOMOTIVE ENGINEER 650 mg Given 03/08/2018 2:28 PM ASSISTANT PASSENGER LOCOMOTIVE ENGINEER 650 mg atorvastatin (LIPITOR) tablet 80 mg 80 mg, Oral, DAILY AT BEDTIME, First dose on 03/08/18 at 0000, Until Discontinued, Routine Given 03/08/2018 9:14 PM ASSISTANT PASSENGER LOCOMOTIVE ENGINEER 80 mg Given 03/08/2018 4:13 AM ASSISTANT PASSENGER LOCOMOTIVE ENGINEER 80 mg citalopram (CeleXA) tablet 40 mg 40 mg, Oral, DAILY, First dose on 03/08/18 at 0900, Until Discontinued, Routine Given 03/09/2018 10: 00 AM ASSISTANT PASSENGER LOCOMOTIVE ENGINEER 40 mg Given 03/08/2018 8:10 AM ASSISTANT PASSENGER LOCOMOTIVE ENGINEER 40 mg dextrose 5% - sodium chloride 0.9% infusion IV, at 40 mL/hr, SEE ADMIN INSTRUCTIONS, Starting on 03/08/18 at 0246, Until 03/09/18 at 1738, Routine dextrose 50% (D50) syringe 12.5 Gram 12.5 Gram, IV, SEE ADMIN INSTRUCTIONS, Starting on 03/08/18 at 0246, Until 03/09/18 at 1738, Routine dextrose 50% (D50) syringe 25 Gram 25 Gram, IV, SEE ADMIN INSTRUCTIONS, Starting on 03/08/18 at 0246, Until 03/09/18 at 1738, Routine diphenhydrAMINE (BENADRYL) tablet 25 mg 25 mg, Oral, EVERY 6 HOURS PRN, Starting on 03/08/18 at 1359, Until 03/09/18 at 1738, Itching, Restlessness, Routine Given 03/08/2018 8:05 PM ASSISTANT PASSENGER LOCOMOTIVE ENGINEER 25 mg Given 03/08/2018 2:27 PM ASSISTANT PASSENGER LOCOMOTIVE ENGINEER 25 mg enoxaparin (LOVENOX) injection 40 mg 40 mg, subCUT, EVERY 24 HOURS, First dose on 03/08/18 at 0900, Until Discontinued, Routine Given 03/09/2018 10:00 AM ASSISTANT PASSENGER LOCOMOTIVE ENGINEER 40 mg Abdomen, Left Lower Quadrant Given 03/08/2018 1:19 PM ASSISTANT PASSENGER LOCOMOTIVE ENGINEER 40 mg Ab domen, Left Lower Quadrant fenofibrate (LOFIBRA) tablet 160 mg 160 mg, Oral, DAILY, First dose on 03/08/18 at 0900, Until Discontinued, Routine Given 03/08/2018 1:12 PM ASSISTANT PASSENGER LOCOMOTIVE ENGINEER 160 mg Fish Oil-[place]-3 Fatty Acids 360-1,200 mg capsule 2 Capsule 2 Capsule, Oral, TWO TIMES DAILY, First dose (after last modification) on 03/08/18 at 1030, Until Discontinued, Routine Given 03/09/2018 10:00 AM ASSISTANT PASSENGER LOCOMOTIVE ENGINEER 2 Capsules Given 03/08/2018 9:13 PM ASSISTANT PASSENGER LOCOMOTIVE ENGINEER 2 Capsules Given 03/08/2018 1:11 PM ASSISTANT PASSENGER LOCOMOTIVE ENGINEER 2 Capsules gemfibrozil (LOPID) tablet 600 mg 600 mg, Oral, TWO TIMES DAILY BEFORE MEALS, First dose on 03/08/18 at 1600, Until Discontinued, Routine Given 03/09/2018 5:30 AM ASSISTANT PASSENGER LOCOMOTIVE ENGINEER 600 mg Given 03/08/2018 8:06 PM ASSISTANT PASSENGER LOCOMOTIVE ENGINEER 600 mg glucagon HCl 1 mg injection 1 mg 1 mg, IM, SEE ADMIN INSTRUCTIONS, Starting on 03/08/18 at 0246, Until 03/09/18 at 1738, Routine hyoscyamine (LEVSIN) sublingual tablet 0.125 mg 0.125 mg, Sublingual, EVERY 6 HOURS PRN, Starting on 03/08/18 at 1307, Until 03/09/18 at 1738, Spasm, Routine Given 03/09/2018 10:10 AM ASSISTANT PASSENGER LOCOMOTIVE ENGINEER 0.125 mg Given 03/08/2018 2:28 PM ASSISTANT PASSENGER LOCOMOTIVE ENGINEER 0.125 mg insulin glargine (LANTUS) injection 10 Units 10 Units, subCUT, TWO TIMES DAILY, First dose (after last modification) on 03/09/18 at 2100, Until Discontinued, Routine insulin glargine (LANTUS) injection 20 Units 20 Units, subCUT, TWO TIMES DAILY, First dose on 03/08/18 at 0800, Until Discontinued, Routine Given 03/08/2018 9:19 PM ASSISTANT PASSENGER LOCOMOTIVE ENGINEER 20 Units Arm, Right Upper Given 03/08/2018 8:06 AM ASSISTANT PASSENGER LOCOMOTIVE ENGINEER 20 Units De ltoid, Left insulin lispro (HumaLOG) injection 5 Units 5 Units, subCUT, THREE TIMES DAILY WITH MEALS, First dose on 03/09/18 at 1200, Until Discontinued, Routine Given 03/09/2018 2:16 PM ASSISTANT PASSENGER LOCOMOTIVE ENGINEER 5 Units Arm, Right Upper insulin lispro (HumaLOG) variable dose injection subCUT, THREE TIMES DAILY WITH MEALS, First dose (after last modification) on 03/09/18 at 1200, Until Discontinued, Routine iopamidol (ISOVUE-300) 61 % injection 125 mL 125 mL, IV, INTRA-PROCEDURE ONCE, 1 dose, Starting on Sat03/07/18 at 1744, Until Sat03/07/18 at 1824, Routine Contrast Given 03/07/2018 6:24 PM ASSISTANT PASSENGER LOCOMOTIVE ENGINEER 125 mL lactated Ringers solution IV, at 125 mL/hr, PRE-PROCEDURE CONTINUOUS, Starting on 03/08/18 at 1100, Until 03/08/18 at 1254, Routine Continue from Pre-Op 03/08/2018 11:53 AM ASSISTANT PASSENGER LOCOMOTIVE ENGINEER New Bag 03/08/2018 10:55 AM ASSISTANT PASSENGER LOCOMOTIVE ENGINEER 125 mL/hr levothyroxine (SYNTHROID) tablet 175 mcg 175 mcg, Oral, DAILY EARLY, First dose on 11/10/18 at 0600, Until Discontinued, Routine Given 03/08/2018 7:26 AM ASSISTANT PASSENGER LOCOMOTIVE ENGINEER 175 mcg levothyroxine (SYNTHROID) tablet 200 mcg 200 mcg, Oral, DAILY EARLY, First dose (after last modification) on 03/09/18 at 0600, Until Discontinued, Routine Given 03/09/2018 5:30 AM ASSISTANT PASSENGER LOCOMOTIVE ENGINEER 200 mcg LORazepam (ATIVAN) 2 mg/mL injection 0.25 mg 0.25 mg, IV, TWO TIMES DAILY PRN, Starting on Sat03/07/18 at 2342, Until Sat03/08/18 at 1308, Anxiety, Routine Given 03/08/2018 12:32 AM ASSISTANT PASSENGER LOCOMOTIVE ENGINEER 0.25 mg morphine 4 mg/mL injection 2 mg 2 mg, IV, EVERY 3 HOURS PRN, Starting on Sat03/07/18 at 2341, Until Sat03/08/18 at 1308, Pain (See admin instructions), Routine Given 03/08/2018 7:27 AM ASSISTANT PASSENGER LOCOMOTIVE ENGINEER 2 mg Given 03/08/2018 4:09 AM ASSISTANT PASSENGER LOCOMOTIVE ENGINEER 2 mg morphine 4 mg/mL injection 4 mg 4 mg, IV, ONE TIME ONLY, 1 dose, On Sat03/07/18 at 1715, Routine Given 03/07/2018 5:25 PM ASSISTANT PASSENGER LOCOMOTIVE ENGINEER 4 mg morphine 4 mg/mL injection 4 mg 4 mg, IV, ONE TIME ONLY, 1 dose, On Sat03/07/18 at 1945, Routine Given 03/07/2018 8:18 PM ASSISTANT PASSENGER LOCOMOTIVE ENGINEER 4 mg morphine 4 mg/mL injection 4 mg 4 mg, IV, EVERY 3 HOURS PRN, Starting on Sat03/07/18 at 2208, Until Sat03/07/18 at 2345, Pain (See admin instructions), Routine Given 03/07/2018 10:41 PM ASSISTANT PASSENGER LOCOMOTIVE ENGINEER 4 mg niacin (NIACOR) tablet 500 mg 500 mg, Oral, TWO TIMES DAILY, First dose on Sat03/08/18 at 1030, Until Discontinued, Routine Given 03/08/2018 1:11 PM ASSISTANT PASSENGER LOCOMOTIVE ENGINEER 500 mg niacin (NIASPAN ER) SR 24 hour tablet 500 mg 500 mg, Oral, TWO TIMES DAILY WITH MEALS, First dose on Sat03/08/18 at 2300, Until Discontinued, Routine Given 03/09/2018 10:03 AM ASSISTANT PASSENGER LOCOMOTIVE ENGINEER 500 mg Given 03/08/2018 10:40 PM ASSISTANT PASSENGER LOCOMOTIVE ENGINEER 500 mg ondansetron (ZOFRAN ODT) tablet 4 mg 4 mg, Oral, EVERY 6 HOURS PRN, Starting on Sat03/07/18 at 2344, Until Sat03/09/18 at 1738, Nausea/Emesis, Routine Given 03/08/2018 10:41 PM ASSISTANT PASSENGER LOCOMOTIVE ENGINEER 4 mg Given 03/08/2018 12:28 AM ASSISTANT PASSENGER LOCOMOTIVE ENGINEER 4 mg pantoprazole (PROTONIX) tablet 40 mg 40 mg, Oral, DAILY, First dose on 03/08/18 at 1430, Until Discontinued, Routine Given 03/09/2018 10: 00 AM ASSISTANT PASSENGER LOCOMOTIVE ENGINEER 40 mg Given 03/08/2018 2:44 PM ASSISTANT PASSENGER LOCOMOTIVE ENGINEER 40 mg potassium Cl 20 mEq in dextrose 5% - NaCl 0.45% 1000 mL infusion IV, at 125 mL/hr, CONTINUOUS, Starting on Sat03/07/18 at 2215, Until Sat03/07/18 at 2346, Routine New Bag 03/07/2018 10:37 PM ASSISTANT PASSENGER LOCOMOTIVE ENGINEER 125 mL/hr prochlorperazine (COMPAZINE) injection 5 mg 5 mg, IV, ONE TIME ONLY, 1 dose, On Sat03/07/18 at 1715, Routine Given 03/07/2018 5:25 PM ASSISTANT PASSENGER LOCOMOTIVE ENGINEER 5 mg prochlorperazine (COMPAZINE) injection 5 mg 5 mg, IV, EVERY 6 HOURS PRN, Starting on Sat03/07/18 at 2208, Until Sat03/09/18 at 1738, Nausea, Routine Given 03/09/2018 10:13 AM ASSISTANT PASSENGER LOCOMOTIVE ENGINEER 5 mg Given 03/08/2018 1:22 PM ASSISTANT PASSENGER LOCOMOTIVE ENGINEER 5 mg Given 03/08/2018 4:10 AM ASSISTANT PASSENGER LOCOMOTIVE ENGINEER 5 mg sodium chloride 0.9% bolus solution 500 mL 500 mL, IV, ONE TIME ONLY, 1 dose, On Sat03/07/18 at 1715, at 1,000 mL/hr, Administer over 30 Minutes, Routine New Bag 03/07/2018 5:25 PM ASSISTANT PASSENGER LOCOMOTIVE ENGINEER 500 mL 1000 m L/hr sodium chloride 0.9% infusion IV, at 150 mL/hr, CONTINUOUS, Starting on Sat03/07/18 at 1715, Until Sat03/09/18 at 1738, Routine Rate Change 03/09/2018 2:16 PM ASSISTANT PASSENGER LOCOMOTIVE ENGINEER 20 mL/hr Rate Change 03/09/2018 12:35 PM ASSISTANT PASSENGER LOCOMOTIVE ENGINEER 150 mL/hr Rate Change 03/09/2018 12:25 PM ASSISTANT PASSENGER LOCOMOTIVE ENGINEER 20 mL/hr sodium chloride flush injection 10 mL 10 mL, IV, ONE TIME ONLY, 1 dose, On Sat03/07/18 at 1745, Routine Given 03/07/2018 5:45 PM ASSISTANT PASSENGER LOCOMOTIVE ENGINEER 10 mL sodium chloride flush injection 3 mL 3 mL, IV, TWO TIMES DAILY, First dose on 03/08/18 at 0100, Until Discontinued, Routine Given 03/08/2018 9:21 PM ASSISTANT PASSENGER LOCOMOTIVE ENGINEER 3 mL Given 03/08/2018 10:15 AM ASSISTANT PASSENGER LOCOMOTIVE ENGINEER 3 mL Given 03/08/2018 4:19 AM ASSISTANT PASSENGER LOCOMOTIVE ENGINEER 3 mL spironolactone (ALDACTONE) tablet 100 mg 100 mg, Oral, DAILY, First dose on 03/08/18 at 0900, Until Discontinued, Routine Given 03/09/2018 10:00 AM ASSISTANT PASSENGER LOCOMOTIVE ENGINEER 100 mg Given 03/08/2018 1:11 PM ASSISTANT PASSENGER LOCOMOTIVE ENGINEER 100 mg traZODone (DESYREL) tablet 100 mg 100 mg, Oral, DAILY AT BEDTIME, First dose on 03/08/18 at 0000, Until Discontinued, Routine Given 03/08/2018 9:12 PM ASSISTANT PASSENGER LOCOMOTIVE ENGINEER 100 mg Given 03/08/2018 12:27 AM ASSISTANT PASSENGER LOCOMOTIVE ENGINEER 100 mg documented in this encounter Active and Recently Administered Medications Times are shown in ASSISTANT PASSENGER LOCOMOTIVE ENGINEER. Scheduled Medication Order 03/07/2018 03/08/2018 03/09/2018 atorvastatin (LIPITOR) tablet 80 mg 80 mg, Oral, DAILY AT BEDTIME, First dose on 03/08/18 at 0000, Until Discontinued, Routine 0413 (Given - Provider: Alize Darling, CLAU)2114 (Given - Provider: Alize Darling, CLAU) citalopram (CeleXA) tablet 40 mg 40 mg, Oral, DAILY, First dose on 03/08/18 at 0900, Until Discontinued, Routine 0810 (Given - Provider: Harvey Rendon, RN) 1000 (Given - Provider: Sandeep Carlisle RN) dextrose 5% - sodium chloride 0.9% infusion IV, at 40 mL/hr, SEE ADMIN INSTRUCTIONS, Starting on 03/08/18 at 0246, Until 03/09/18 at 1738, Routine dextrose 50% (D50) syringe 12.5 Gram 12.5 Gram, IV, SEE ADMIN INSTRUCTIONS, Starting on 03/08/18 at 0246, Until 03/09/18 at 1738, Routine dextrose 50% (D50) syringe 25 Gram 25 Gram, IV, SEE ADMIN INSTRUCTIONS, Starting on 03/08/18 at 0246, Until 03/09/18 at 1738, Routine enoxaparin (LOVENOX) injection 40 mg 40 mg, subCUT, EVERY 24 HOURS, First dose on 03/08/18 at 0900, Until Discontinued, Routine 0900 (Canceled Entry - Provider: Harvey Rendon RN - Comment: procedure)1319 (Given - Provider: Harvey Rendon RN) 1000 (Given - Provider: Sandeep Carlisle RN) fenofibrate (LOFIBRA) tablet 160 mg (CANCELED) 160 mg, Oral, DAILY, First dose on 03/08/18 at 0900, Until Discontinued, Routine 131 (Given - Provider: Harvey Rendon RN) Fish Oil-[place]-3 Fatty Acids 360-1,200 mg capsule 2 Capsule 2 Capsule, Oral, TWO TIMES DAILY, First dose (after last modification) on 03/08/18 at 1030, Until Discontinued, Routine 131 (Given - Provider: Harvey Rendon RN)2113 (Given - Provider: Alize Darling RN) 1000 (Given - Provider: Sandeep Carlisle, CLAU) gemfibrozil (LOPID) tablet 600 mg 600 mg, Oral, TWO TIMES DAILY BEFORE MEALS, First dose on 03/08/18 at 1600, Until Discontinued, Routine 2005 (Given - Provider: Alize Darling RN) 0530 (Given - Provider: Alize Darling RN) glucagon HCl 1 mg injection 1 mg 1 mg, IM, SEE ADMIN INSTRUCTIONS, Starting on 03/08/18 at 0246, Until 03/09/18 at 1738, Routine insulin glargine (LANTUS) injection 10 Units 10 Units, subCUT, TWO TIMES DAILY, First dose (after last modification) on 03/09/18 at 2100, Until Discontinued, Routine insulin glargine (LANTUS) injection 20 Units (CANCELED) 20 Units, subCUT, TWO TIMES DAILY, First dose on 03/08/18 at 0800, Until Discontinued, Routine 08 (Given - Provider: Harvey Rendon RN - Comment: [phone] (Given - Provider: Alize Darling, CLAU) 0800 (Canceled Entry - Provider: Sandeep Carlisle, CLAU) insulin lispro (HumaLOG) injection 5 Units 5 Units, subCUT, THREE TIMES DAILY WITH MEALS, First dose on 03/09/18 at 1200, Until Discontinued, Routine 1416 (Given - Provider: Sandeep Carlisle, RN) insulin lispro (HumaLOG) variable dose injection subCUT, THREE TIMES DAILY WITH MEALS, First dose (after last modification) on 03/09/18 at 1200, Until Discontinued, Routine 1200 (Not Given - Provider: Sandeep Carlisle, CLAU - Reason: Lab results) iopamidol (ISOVUE-300) 61 % injection 125 mL (COMPLETED) 125 mL, IV, INTRA-PROCEDURE ONCE, 1 dose, Starting on Sat03/07/18 at 1744, Until Sat03/07/18 at 1824, Routine 1824 (Contrast Given - Provider: Rich Lewis, RT) levothyroxine (SYNTHROID) tablet 175 mcg (CANCELED) 175 mcg, Oral, DAILY EARLY, First dose on 03/08/18 at 0600, Until Discontinued, Routine 0726 (Given - Provider: Alize Darling RN) levothyroxine (SYNTHROID) tablet 200 mcg 200 mcg, Oral, DAILY EARLY, First dose (after last modification) on 03/09/18 at 0600, Until Discontinued, Routine 0530 (Given - Provider: Alize Darling, CLAU) morphine 4 mg/mL injection 4 mg (COMPLETED) 4 mg, IV, ONE TIME ONLY, 1 dose, On Sat03/07/18 at 1715, Routine 1725 (Given - Provider: Jeff Enciso, CLAU) morphine 4 mg/mL injection 4 mg (COMPLETED) 4 mg, IV, ONE TIME ONLY, 1 dose, On Sat03/07/18 at 1945, Routine 2018 (Given - Provider: Maame Reed, CLAU) naloxone (NARCAN) 0.4 mg/mL injection 0.1 mg 0.1 mg, IV, SEE ADMIN INSTRUCTIONS, Starting on Sat03/07/18 at 2344, Until Sat03/09/18 at 1738, Routine niacin (NIACOR) tablet 500 mg (CANCELED) 500 mg, Oral, TWO TIMES DAILY, First dose on 03/08/18 at 1030, Until Discontinued, Routine 1311 (Given - Provider: Harvey Rendon, CLAU) niacin (NIASPAN ER) SR 24 hour tablet 500 mg 500 mg, Oral, TWO TIMES DAILY WITH MEALS, First dose on 03/08/18 at 2300, Until Discontinued, Routine 2240 (Given - Provider: Alize Darling RN) 1003 (Given - Provider: Sandeep Carlisle, RN) pantoprazole (PROTONIX) tablet 40 mg 40 mg, Oral, DAILY, First dose on 03/08/18 at 1430, Until Discontinued, Routine 1444 (Given - Provider: Harvey Rendon RN) 1000 (Given - Provider: Sandeep Carlisle, RN) prochlorperazine (COMPAZINE) injection 5 mg (COMPLETED) 5 mg, IV, ONE TIME ONLY, 1 dose, On Sat03/07/18 at 1715, Routine 1725 (Given - Provider: Jeff Enciso RN) sodium chloride 0.9% bolus solution 500 mL (COMPLETED) 500 mL, IV, ONE TIME ONLY, 1 dose, On Sat03/07/18 at 1715, at 1,000 mL/hr, Administer over 30 Minutes, Routine 1725 (New Bag - Provider: Jeff Enciso RN)1755 (Stopped - Provider: Alize Darling RN)1800 (Stopped - Provider: Jeff Enciso RN) sodium chloride flush injection 10 mL (COMPLETED) 10 mL, IV, ONE TIME ONLY, 1 dose, On Sat03/07/18 at 1745, Routine 1745 (Given - Provider: Rich Lewis, RT) sodium chloride flush injection 3 mL 3 mL, IV, TWO TIMES DAILY, First dose on Sat03/08/18 at 0100, Until Discontinued, Routine 0419 (Given - Provider: Alize Darling, CLAU)1015 (Given - Provider: Harvey Rendon RN)2121 (Given - Provider: Alize Darling RN) 0900 (Not Given - Provider: Sandeep Carlisle, RN - Reason: Clarify-Other (Comment) - Comment: continuous IVF) spironolactone (ALDACTONE) tablet 100 mg 100 mg, Oral, DAILY, First dose on 03/08/18 at 0900, Until Discontinued, Routine 1311 (Given - Provider: Harvey Rendon RN) 1000 (Given - Provider: Sandeep Carlisle RN) traZODone (DESYREL) tablet 100 mg 100 mg, Oral, DAILY AT BEDTIME, First dose on 03/08/18 at 0000, Until Discontinued, Routine 0027 (Given - Provider: Alize Darling RN)2111 (Given - Provider: Alize Darling RN) Continuous Medication Order 03/07/2018 03/08/2018 03/09/2018 lactated Ringers solution (CANCELED) IV, at 125 mL/hr, PRE-PROCEDURE CONTINUOUS, Starting on 03/08/18 at 1100, Until 03/08/18 at 1254, Routine 1055 (New Bag - Provider: Awilda Pagan RN)1153 (Continue from Pre-Op - Provider: Annie Jeffrey MD)1200 (Stopped - Provider: Harvey Rendon RN) potassium Cl 20 mEq in dextrose 5% - NaCl 0.45% 1000 mL infusion (CANCELED) IV, at 125 mL/hr, CONTINUOUS, Starting on Sat03/07/18 at 2215, Until Sat03/07/18 at 2346, Routine 2237 (New Bag - Provider: Alize Darling RN) 0414 (Stopped - Provider: Alize Darling RN) sodium chloride 0.9% infusion IV, at 150 mL/hr, CONTINUOUS, Starting on Sat03/07/18 at 1715, Until 03/09/18 at 1738, Routine 211 (New Bag - Provider: Maame Reed RN)2114 (Rate Verify - Provider: Alize Darling RN)222 (Rate Verify - Provider: Alize Darling RN)223 (Stopped - Provider: Alize Darling RN)223 (Stopped - Provider: Alize Darling RN) 041 (New Bag - Provider: Alize Darling RN)0414 (Paused - Provider: Alize Darling RN)0417 (Restarted - Provider: Alize Darling RN)0418 (Paused - Provider: Alize Darling RN)0418 (Restarted - Provider: Alize Darling RN)0748 (Rate Verify - Provider: Alize Darling RN)0800 (Rate Verify - Provider: Harvey Rendon RN)0809 (Rate Verify - Provider: Harvey Rendon RN)1000 (Rate Verify - Provider: Harvey Rendon, RN)1016 (Stopped - Provider: Alize Darling RN)1324 (Restarted - Provider: Harvey Rendon RN)1328 (Rate Change - Provider: Harvey Rendon RN)1330 (Rate Verify - Provider: Alize Darling RN)1332 (Rate Verify - Provider: Harvey Rendon RN - Comment: [Action automatically changed])1552 (Paused - Provider: Alize Darling RN)1608 (Bag Switched - Provider: Harvey Rendon RN)1609 (Rate Verify - Provider: Alize Darling RN)1943 (Rate Verify - Provider: Alize Darling RN)2237 (Rate Change - Provider: Alize Darling RN)2239 (Paused - Provider: Alize Darling RN)223 (Restarted - Provider: Alize Darling RN)2242 (Bag Switched - Provider: Alize Darling RN)2243 (Paused - Provider: Alize Darling RN)2243 (Restarted - Provider: Alize Darling RN)2256 (Rate Verify - Provider: Alize Darling RN)2334 (Paused - Provider: Alize Darling RN)2334 (Restarted - Provider: Alize Darling RN) 0138 (Paused - Provider: Alize Darling RN)0138 (Restarted - Provider: Alize Darling RN)0200 (Rate Verify - Provider: Alize Darling RN)0524 (Rate Change - Provider: Alize Darling RN)0525 (Paused - Provider: Alize Darling RN)0546 (Rate Change - Provider: Alize Darling RN)0552 (Rate Change - Provider: Alize Darling RN)0553 (Rate Verify - Provider: Alize Darling RN)0604 (Rate Verify - Provider: Alize Darling RN)1000 (Rate Verify - Provider: Sandeep Carlisle RN)1225 (Rate Change - Provider: Sandeep Carlisle RN)1235 (Rate Change - Provider: Sandeep Carlisle, RN)1416 (Rate Change - Provider: Sandeep Carlisle, RN)1418 (Stopped - Provider: Sandeep Carlisle RN) PRN Medication Order 03/07/2018 03/08/2018 03/09/2018 acetaminophen (TYLENOL) tablet 650 mg 650 mg, Oral, EVERY 6 HOURS PRN, Starting on 03/08/18 at 1358, Until 03/09/18 at 1738, Pain, Break-Through, Routine 1428 (Given - Provider: Harvey Rendon RN)2005 (Given - Provider: Alize Darling RN) 0534 (Given - Provider: Alize Darling RN) diphenhydrAMINE (BENADRYL) tablet 25 mg 25 mg, Oral, EVERY 6 HOURS PRN, Starting on 03/08/18 at 1359, Until 03/09/18 at 1738, Itching, Restlessness, Routine 1427 (Given - Provider: Harvey Rendon RN)2004 (Given - Provider: Alize Darling, CLAU) hyoscyamine (LEVSIN) sublingual tablet 0.125 mg 0.125 mg, Sublingual, EVERY 6 HOURS PRN, Starting on 03/08/18 at 1307, Until 03/09/18 at 1738, Spasm, Routine 1428 (Given - Provider: Harvey Rendon RN) 1010 (Given - Provider: Sandeep Carlisle, CLAU) LORazepam (ATIVAN) 2 mg/mL injection 0.25 mg (CANCELED) 0.25 mg, IV, TWO TIMES DAILY PRN, Starting on 03/07/18 at 2342, Until 03/08/18 at 1308, Anxiety, Routine 0032 (Given - Provider: Alize Darling RN) morphine 4 mg/mL injection 2 mg (CANCELED) 2 mg, IV, EVERY 3 HOURS PRN, Starting on 03/07/18 at 2341, Until 03/08/18 at 1308, Pain (See admin instructions), Routine 0409 (Given - Provider: Alize Darling RN)0727 (Given - Provider: Alize Darling RN) morphine 4 mg/mL injection 4 mg (CANCELED) 4 mg, IV, EVERY 3 HOURS PRN, Starting on Sat03/07/18 at 2208, Until 03/07/18 at 2345, Pain (See admin instructions), Routine 2241 (Given - Provider: Alize Darling RN) ondansetron (ZOFRAN ODT) tablet 4 mg 4 mg, Oral, EVERY 6 HOURS PRN, Starting on Sat03/07/18 at 2344, Until 03/09/18 at 1738, Nausea/Emesis, Routine 0028 (Given - Provider: Alize Darling RN)2241 (Given - Provider: Alize Darling RN) prochlorperazine (COMPAZINE) injection 5 mg 5 mg, IV, EVERY 6 HOURS PRN, Starting on 03/07/18 at 2208, Until 03/09/18 at 1738, Nausea, Routine 2244 (Given - Provider: Alize Darling RN) 0410 (Given - Provider: Alize Darling RN)1322 (Given - Provider: Harvey Rendon RN) 1013 (Given - Provider: Sandeep Carlisle RN) documented in this encounter Care Teams Clinical Nurse Educator Relationship Specialty Start Date End Date Guerrero Middleton PA-C PCP - General Physician Prepress Specialist 02/13/18 documented as of this encounter
--- OUTSIDE RECORDS SUMMARY | 2024-05-03 20:46 | XMS_ITS | Encounter Summary ---
Author Organization [facility] Address [address] [place] [address] Care Team Providers Care Ios Programmer Name Role Phone Guerrero Middleton PA-C Primary Care Provide r Reason for Visit * Reason Onset Date Comments Needs Form Or Letter Filled Out 05/16/2018 Encounter Details Date Type Department Care Team (Late st Contact Info) Description 05/16/2018 Telephone [facility] [address] [place] [address] Marlys Mayer MD [address] [place] [address] Needs Form Or Letter Filled Out Social History Tobacco Use Types Packs/Day Years [...] Telephone Encounter - Alexandra Kahn RN - 05/16/2018 11:16 AM GEAR LAPPING MACHINE OPERATOR Faxed discharge summary's, labs to Dr. Lizarraga at [facility] at [phone].. Called patient left message on home phone that letter was written that she requested from Dr. Mayer it will be at the front desk clerk of [address] [facility] Mayer recommends her going to the emergency room if she has any kind of symptoms for plasmapheresis. Dr. Mayer called pt and left a message with her phone number for a return call. My direct callback number left for any questions LAPPING MACHINE OPERATOR documented in this encounter Plan of Treatment Upcoming Encounters Date Type Department Care Team (Late st Contact Info) Description 09/14/2024 3:00 PM CDT Office Visit [facility] Heart [facility] V[facility] - [facility] [address] [place] [id number] Marlys Mayer MD [address] [place] [address] documented as of this encounter Visit Diagnoses Not on filedocumented in this encounter Care Teams Ios Programmer Relationship Specialty Start Date End Date Guerrero Middleton PA-C PCP - General Physician R D Manager 02/13/18 documented as of this encounter
--- OUTSIDE RECORDS SUMMARY | 2024-05-03 20:46 | XMS_ITS | Encounter Summary ---
Author Organization [facility] Address [address] [place] [address] Care Team Providers Care Machine Setter Automatic Name Role Phone Guerrero Middleton PA-C Primary Care Provide r Reason for Visit * Reason Onset Date Comments needs appt 04/02/2018 Encounter Details Date Type Department Care Team (Late st Contact Info) Description 04/02/2018 Telephone [facility] At [facility] [address] [place] [address] Marlys Mayer MD [address] [place] [address] needs appt Social History Tobacco Use Types Packs/Day Years [...] Encounter - Tita Jessica RMA - 04/03/2018 4:41 PM SALES OPERATIONS COORDINATOR Appointment scheduled. S OPERATIONS COORDINATOR * Telephone Encounter - Luisa Post - 04/02/2018 2:54 PM CST Please contact patient to schedule a 1 month follow up with [address]. Mayer. Thank you. S OPERATIONS COORDINATOR documented in this encounter Plan of Treatment Upcoming Encounters Date Type Department Care Team (Late st Contact Info) Description 09/14/2024 3:00 PM CDT Office Visit [facility] - [place] [address] [place] [phone] Marlys Mayer MD [address] [place] [address] documented as of this encounter Visit Diagnoses Not on filedocumented in this encounter Care Teams Machine Setter Automatic Relationship Specialty Start Date End Date Guerrero Middleton PA-C PCP - General Physician Mandarin Teacher 02/13/18 documented as of this encounter
--- OUTSIDE RECORDS SUMMARY | 2024-05-03 20:46 | XMS_ITS | Encounter Summary ---
Author Organization [facility] Address [address] [place] [address] Care Team Providers Care Stitch Wheeler Name Role Phone Guerrero Middleton PA-C Primary Care Provide r Encounter Details Date Type Department Care Team (Latest Contact Info) Description 05/14/2018 12:45 PM PREP COOK - 05/14/2018 11:59 PM PREP COOK Hospital Encounter [facility] [address] [place] [phone] Marlys Mayer MD [address] [place] [address] Discharge Disposition: Home or Self Care Social [...] needed for nausea/vomiting. 30 Tablet 03/09/2018 05/21/2018 hyoscyamine 0.125 mg Tablet, Sublingual Place 1 Tablet under tongue every 6 hours as needed for Spasm. 30 Tablet 03/09/2018 05/16/2018 levothyroxine 200 mcg tabletIndications:Hy pothyroidism Take 1 [...] units dinner Also with sliding scale. 06/02/2018 [id number] A-Fish Oil [phone] [id number] Capsule Take 2 Caplets by mouth 2 times daily. 120 Capsule 3 12/10/2017 08/03/2018 sennosides (SENOKOT) 8.6 mg tablet Take 1 Tablet by mouth 2 times daily. 30 Tablet 12/10/2017 05/16/2018 hydrocortisone 1 % Ointment Apply to affected area 2 times daily. 28 Gram 12/10/2017 05/16/2018 spironolactone (ALDACTONE) 25 mg tablet Take 25 [...] [facility] [address] [place] [address] Marlys Mayer MD [address] [place] [address] documented as of this encounter Procedures Procedure Name Priority Date/Time Associated Diagnosis Comments LIPID PANEL Routine 05/14/2018 12:48 PM PREP COOK Hypertriglyceridemi a Type 2 diabetes mellitus without complication, with long-term current use of insulin BASIC METABOLIC PANEL Routine 05/14/2018 12:48 PM PREP COOK Hypertriglyceridemi a Type 2 diabetes mellitus without complication, with long-term current use of insulin documented in this encounter Results * (ABNORMAL) BASIC METABOLIC PANEL (05/14/2018 12:48 PM PREP COOK) SODIUM 131(L) 136 - 145 mmol/L 05/14/2018 2:10 PM [facility] [employer] [facility] POTASSIUM 4.5 3.5 - 5.0 mmol/L 05/14/2018 2:10 PM [facility] [employer] [facility] CHLORIDE 90(L) 98 - 107 mmol/L 05/14/2018 2:10 PM [facility] CO2 24 22 - 29 mmol/L 05/14/2018 2:10 PM [facility] [employer] [facility] CALCIUM 9.8 8.6 - 10.2 mg/dL 05/14/2018 2:10 PM [facility] [employer] [facility] BUN 9 6 - 20 mg/dL 05/14/2018 2:10 PM [facility] CREATININE 0.44(L) 0.51 - 0.95 mg/dL 05/14/2018 2:10 PM [facility] [employer] [facility] GLUCOSE 160(H) 74 - 99 mg/dL 05/14/2018 2:10 PM [facility] [employer] [facility] GFR >60 >=60 mL/min/1.7 3 sq meter 05/14/2018 2:10 PM [facility] [employer] [facility] Comment: eGFR has not [...] mL/min/1.7 3 sq meter 05/14/2018 2:10 PM [facility] [employer] [facility] ANION GAP 17(H) 8 - 16 mmol/L 05/14/2018 2:10 PM [facility] [employer] [facility] Blood Venipuncture / Unknown 05/14/2018 12:48 PM PREP COOK 05/14/2018 12:58 PM [facility]OOK Marlys Mayer MD CHEMISTRY ORDERABLES [facility] [employer] [facility]# [id number] [address] [place] [address] * (ABNORMAL) LIPID PANEL (05/14/2018 12:48 PM PREP COOK) Pathologist [facility] CHOLESTEROL 623(H) <200 mg/dL 05/14/2018 2:41 PM [facility] TRIGLYCERIDE 3,899(H) <150 mg/dL 05/14/2018 2:41 PM [facility] HDL 40 - 59 mg/dL 05/14/2018 2:41 PM [facility] Comment: Measured HDL is not accurate when the Triglyceride value exceeds 1200. LDL CALCULATED <100 mg/dL 05/14/2018 2:41 PM [facility] Comment:Calculated LDL is no t accurate when the Triglyceride value exceeds 400. NON-HDL CHOLESTEROL <130 mg/dL 05/14/2018 2:41 PM [facility] Comment:Non HDL Cholesterol cannot be calculated when the HDL value is suppressed. Blood Venipuncture / Unknown 05/14/2018 12:48 PM [facility] 05/14/2018 12:58 PM [facility] Narrative [facility] - 05/14/2018 2:41 PM PREP COOK TOTAL CHOLESTEROL ??mg/dL ??Desirable <200 ??Borderline high [...] Panels (NCEP/AMA) Marlys Mayer MD CHEMISTRY ORDERABLES [facility] [employer] [facility] CLIA# [id number] [address] [place] [address] documented in this encounter Visit Diagnoses Diagnosis Hypertriglyceridemia Pure hyperglyceridemia Type 2 diabetes mellitus without complication, with long-term current use of insulin documented in this encounter Care Teams Stitch Wheeler Relationship Specialty Start Date End Date Guerrero Middleton PA-C PCP - General Physician Screed Person 02/13/18 documented as of this encounter
--- OUTSIDE RECORDS SUMMARY | 2024-05-03 20:46 | XMS_ITS | Encounter Summary ---
Author Organization [facility] Address [address] [place] [address] Care Team Providers Care Router Machine Operator Name Role Phone Guerrero Middleton PA-C Primary Care Provide r Reason for Visit * Reason Comments Abdominal Pain pt arrives c/o LUQ p ain that radiates to her back, the pain started this AM, +n/v/d, hx of pancreatitis, taking compazine at home without relief, denies any fevers * Auth/Cert Specialty Diagnoses / Procedures Referred By Contac t Referred To Contact Orthopedic Surgery [facility] [address] [place], [place] [address] [place] [address] Referral ID Status Reason Start Date Expiration Date Visits Re quested Visits Authorized [id number] 1 1 Encounter Details Date Type Department Care Team (Latest Contact Info) Description 04/09/2018 9:03 PM SAFETY PHYSICIAN - 04/14/2018 8:02 PM [facility] Hospital Encounter [facility] Telemetry [address] [place] [address] Yadira Huff [place] [id number] [place] [id number] Richard Mead MD [address] [place] [address] Other acute pancreatitis with uninfected necrosis Discharge Disposition: Home or Self Care Social [...] Sign Reading Time Taken Comments Blood Pressure 120/93 04/14/2018 4:50 PM SAFETY PHYSICIAN Pulse 76 04/14/2018 4:50 PM SAFETY PHYSICIAN Temperature 36.8 ??C (98.2 ??F) 04/14/2018 4:50 PM CS T Respiratory Rate 18 04/14/2018 4:50 PM SAFETY PHYSICIAN Oxygen Saturation 97% 04/14/2018 4:50 PM SAFETY PHYSICIAN Inhaled Oxygen Concentration - - Weight 91.6 kg (201 lb 14.4 oz) 04/14/2018 4:39 AM SAFETY PHYSICIAN Height 165.1 cm (5' 5 ) 04/10/2018 10:0 0 AM SAFETY PHYSICIAN Body Mass Index 33.6 04/10/2018 10:00 AM SAFETY PHYSICIAN documented in this encounter Discharge Summaries * Lynne Quach MD - 04/14/2018 8:08 PM CST [facility] Adult Discharge Summary Casandra Doss 42 y.o. female 1975 CSN: [id number] Date of Admission: 04/09/2018 Date of Discharge: 04/14/2018 Discharging Physician: Lynne Quach MD LOS: 4 days PCP: Guerrero Middleton PA-C Activity: activity as tolerated. Dispo: home Diet: Low fat diet. Code Status at Discharge: FULL Wound Care: None needed 1 Hour 15 Minutes spent in the d/c process today. Admitting Dx and Chief Complaint Chief Complaint Patient presents with ??? Abdominal Pain pt arrives c/o LUQ pain that radiates to her back, the pain started this AM, +n/v/d, hx of pancreatitis, taking compazine at home without relief, denies any fevers Other acute pancreatitis with uninfected necrosis Discharge Diagnoses and Relevant Hospital Course: Hypertriglyceridemia-induce acute pancreatitis Pt is 42 yo female with a PMH of pancreatitis x2, hypertriglyceridemia, DM, and depression who presented with acute onset of epigastric abdominal pain and N/V. In ED, Pt was found to have normal lipase and an elevated triglyceride level of 2480. CT abdomen was consistent with acute pancreatitis. Plan to pursue plasmapheresis was made after discussion with Pt's lipidologist Dr. Mayer. Pt's triglyceride levels and abdominal pain improved with IV hydration, pain medication and two treatments with plasmapheresis. At time of discharge, Pt's triglyceride level was <300 and she was tolerating PO intake with minimal abdominal pain. Pt encouraged to discontinue smoking and adhere to low fat, ananya betic diet. Pt had follow up appointments with Endocrinology Dr. Rudd on 04/25/[address] Mayer on 05/14/18. Discharge medications and new prescriptions: Medication List START taking these medications oxyCODONE-acetaminophen 5-325 mg tablet Commonly known as: PERCOCET Take 1 Tablet by mouth every 4 hours as needed for Pain, Severe. Max Daily Amount: 6 Tablets Signed by: Richard Mead MD Quantity: 10 Tablet Refills: 0 CONTINUE taking these medications [...] hours as needed for Spasm. Signed by: Jack Morel DO Quantity: 30 Tablet Refills: 0 [...] 30 minutes before eating anything. Signed by: Jack Morel DO Quantity: 30 Tablet Refills: 0 [...] by mouth 2 times daily. Refills: 0 [id number] Oil [phone] [id number] Capsule Take 2 Caplets by mouth 2 times daily. Signed by: Odette Che MD Quantity: 120 Capsule Refills: 3 ondansetron 4 mg Tablet, Rapid Dissolve Commonly known as: ZOFRAN ODT Dissolve 1 Tablet on top of tongue,then swallow with saliva every 6 hours as needed for nausea/vomiting. Signed by: Jack Morel DO Quantity: 30 Tablet Refills: 0 [...] nurse or doctor about these medications ?? oxyCODONE-acetaminophen 5-325 mg tablet Consultants: None Brief Synopsis of Diagnostic Studies This Admission (Please see full report for details): ?? CT abdomen 04/10/18: Mild stringy infiltration of the fat surrounding the pancreatic tail with radha mild amount of fluid in the adjacent abdomen\ consistent with pancreatitis Labs and Studies from this Hospitalization Needing Follow Up: ?? None Discharge Lab Data (Please note date of lab as some may have preceeded admission) Lab Results Component Value Date/Time WBC 6.1 04/14/2018 03:51 AM HEMOGLOBIN 11.5 (L) 04/14/2018 03:51 AM HEMATOCRIT 35.4 (L) 04/14/2018 03:51 AM PLATELETS 167 04/14/2018 03:51 AM SODIUM 144 04/14/2018 03:51 AM CHLORIDE 103 04/14/2018 03:51 AM POTASSIUM 2.8 (L) 04/14/2018 03:51 AM CO2 29 04/14/2018 03:51 AM BUN <2 (L) 04/14/2018 03:51 AM CREATININE 0.58 04/14/2018 03:51 AM GLUCOSE 97 04/14/2018 03:51 AM INR 1.1 04/12/2018 06:17 AM AST <5 04/09/2018 07:26 PM ALT <5 04/09/2018 07:26 PM CRP 7.7 (H) 12/04/2017 08:23 PM Discharge Exam: BP (!) 120/93 (BP Location: Left arm, Patient Position (BP): Supine) Pulse 76 Temp 98.2 ??F (36.8 ??C) (Oral) Resp 18 Ht 5' 5 (1.651 m) Wt 91.6 kg (201 lb 14.4 oz) SpO2 97% BMI 33.60 kg/m?? Last documented weight: Weight: 91.6 kg (201 lb 14.4 oz) (04/14/18 0439) Physical Exam: General alert, cooperative, no distress, [...] in NO MORE THAN 7 DAYS Signed: Lynne Quach MD 04/14/2018, 8:09 PM TY PHYSICIAN Associated attestation - Richard Mead MD - 04/14/2018 10:46 PM SAFETY PHYSICIAN [facility] Adult Hospitalist Attending Note I reviewed the medical record including the resident???s note (available as hyperlink below) on 04/14/2018. I reviewed and confirmed the history, physical [...] note; my notable physical exam findings include: Patient feeling well this AM. Tolerated CLD last night and this AM. Ate low fat diabetic diet with mild abdominal pain. Patient feels she is back to her baseline. General: NAD CV: RRR Lungs: CTAB Abdomen: Soft, NT, ND, BS+ I have reviewed the labs that were obtained over the last 24 hours. Notable amendments to the assessment and plan include: Other acute pancreatitis with uninfected necrosis - Due to hypertriglyceridemia. S/p plasmapheresisx2 this admission with TG drastically reduced. Pain has largely resolved and tolerating a diet. Continue statin, fibrate, niacin. F/u with Dr. Mayer and endocrinology as scheduled. More than 1 hour were spent in the care of this patient today; more than 50% was spent in discussion of expected course of disease, discussion of prognosis, discharge planning, coordination of care and discussion of lab and test results. Richard Mead MD [facility] this encounter Discharge Instructions * Discharge Instructions* Richard Mead MD - 04/14/2018 6:26 PM SAFETY PHYSICIAN Your discharging physician is Richard Mead MD and may be reached at [phone] for any questions or concerns until you see your doctor. FOLLOW-UP Follow up with Guerrero Mdidleton PA-C in 1 week(s). Prescriptions given? Yes SIGNS AND SYMPTOMS TO REPORT Contact your health care provider if you experience any of the following symptoms: increase in pain, increase in redness, swelling, or warmth of incision site or persistent bleeding or drainage or any other concerning symptoms. Heart Patients: [...] by nitroglycerin. Smoking Exposure: [facility] encourages all patients to decrease risks associated with smoking and second hand smoke exposure. If you smoke you are advised to quit. Ask your health care provider for advice if you need assistance to stop smoking. Avoid second-hand smoke exposure and do not let people smoke in your home. Please call [phone], our pulmonary rehabilitation department, to learn more about options to reduce your risks. ACTIVITY Your activity level is: increase activity as tolerated and no smoking. You may return to work/school call if not improving. DIET Your diet is: low fat, diabetic diet WOUND CARE For your wound/incision: ok to remove dressing after 24 hrs. TY PHYSICIAN documented in this encounter Medications at Time of Discharge Medication Sig Dispensed Refills Start Date End Date traZODone (DESYREL) 100 mg tablet Take 100 mg by mouth daily at bedtime . oxyCODONE-acetaminop hen (PERCOCET) 5-325 mg tablet Take 1 Tablet by mouth every 4 hours as needed for Pain, Severe. Max Daily Amount: 6 Tablets 10 Tablet 04/14/2018 05/14/2018 ondansetron (ZOFRAN ODT) 4 mg Tablet, Rapid [...] units dinner Also with sliding scale. 06/02/2018 [id number] A-Fish Oil [phone] eo-qh-[id number]-[id number] Capsule Take 2 Caplets by mouth 2 [...] as of this encounter Progress Notes * Dustin Garcia MD - 04/14/2018 6:18 PM CST Received a call from hospitalist to assist in removal of central line. Came to bedside, dressing was removed, line came out completely with intact cuff. Dressing was applied. No complication. Dustin Garcia MD, 04/14/2018 6:20 PM TY PHYSICIAN * Ashlie Carmona MD - 04/13/2018 10:09 PM CST Cross Cover Note Called regarding POC glucose. Patient is tolerating a diet and POC glucose currently ordered q4. [id number] throughout the day. - POC glucose to [facility] and 0200 Ashlie Carmona MD [id number] TY PHYSICIAN * Vicki Garcia NP - 04/13/2018 10:07 PM [facility] Called for: Clarifying glucose order. Last Recorded Vitals: BP 113/66 (BP Location: Right arm, Patient Position (BP): Supine) Pulse 75 Temp 98.4 ??F (36.9 ??C) (Oral) Resp 20 Ht 5' 5 (1.651 m) Wt 89.8 kg (198 lb) SpO2 94% BMI 32.95 kg/m?? Documentation/Intervention/Outcome: Chart reviewed. Patient is being followed by resident service. Request nursing call oncall resident. Please call back any time if I can be of further assistance. Vicki Garcia NP Submit an eTicket TY PHYSICIAN * Richard Mead MD - 04/13/2018 7:11 AM CST [facility] Adult Progress Note Admit Date: 04/09/2018 Date of Note: 04/13/2018, 7:11 AM LOS: 3 days Plan Active Problems: Principal Problem: Other acute pancreatitis with uninfected necrosis Active Problems: Hypertriglyceridemia Abdominal pain History of plasmapheresis Hypertriglyceridemia-Induce Acute Pancreatitis - Patient with longstanding issues with HTG and prior episodes of acute pancreatitis 2/2 this issue. Lipase normal, though this is common for patient. CT with evidence of mild inflammation. Discussed case with patient's lipidologist Dr. Mayer who isaiah mmended pursuing plasmapheresis. S/p 2 sessions of pheresis with TG now at goal <500. Continue IVF, NPO for now, pain control and antiemetics. 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 HTG - TG now drastically improved following pheresis. Continue statin, fibrate, niacin. F/u with Dr. Mayer and Endocrinology after discharge. DM - BG within goal range. Cont lantus, accuchecks and CSI. Needs better fpc control as an outpatient. Has endocrinology f/u scheduled. Hypernatremia - in setting of crystalloid resuscitation. Will change IVF to D5 1/2NS today. Encouraged patient to drink some water throughout the day as tolerated. 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 Current Planned Disposition - Dispo: home pending improvement in acute pancreatitis. Subjective Previous history of present illness and review of systems have been reviewed today as documented inthe H&P on 04/09/2018; medications, labs, studies, notes, orders and consults have been reviewed. I have reviewed the notes from yesterday. Overnight patient slept well. Did not require prn analgesics after falling asleep. Reports pain still present, but improved from yesterday. Some mild nausea persists. Objective BP 110/54 (BP Location: Right arm, Patient Position (BP): Lying left side) Pulse 88 Temp 98.3 ??F (36.8 ??C) (Oral) Resp 12 Ht 5' 5 (1.651 m) Wt 89.8 kg (198 lb) SpO2 96% BMI 32.95 kg/m?? Temp (24hrs), Av.4 ??F (36.9 ??C), Min:98.2 ??F (36.8 ??C), Max:98.7 ??F (37.1 ??C) Exam: Gen alert, cooperative, no distress, appears stated age Lungs clear to auscultation bilaterally Heart regular rate and rhythm, S1, S2 normal, no murmur, click, rub or gallop Abdomen soft, minimally tender in epigastrum. Bowel sounds normal. No masses, No organomegaly Extremities extremities normal, atraumatic, no cyanosis or edema Mental Status AOx4, mildly withdrawn Data: I have reviewed all new labs and studies resulted and pertinent ones are noted below: TG now 289. Mild hypernatremia. More than 30 minutes were spent in the care of this patient today; more than 50% was spent in discussion of expected course of disease, discussion of prognosis, discharge planning, coordination of care and discussion of lab and test results. Richard Mead MD TY PHYSICIAN * Carolyn Boyd NP - 04/12/2018 7:37 PM CST [facility] Called for: RN report patient states NORCO is not helping with pain control, requesting IV Dilaudidfrequently. Left abdominal pain rates 6/10. Last Recorded Vitals: BP 109/73 (BP Location: Right arm, Patient Position (BP): Supine) Pulse 78 Temp 98.4 ??F (36.9 ??C) (Oral) Resp 16 Ht 5' 5 (1.651 m) Wt 89.8 kg (198 lb) SpO2 97% BMI 32.95 kg/m?? Documentation/Intervention/Outcome: -RN will give Levsin at this time and reevaluate patient pain in one hour. -Chart reviewed: Principal problem: Other acute pancreatitis with uninfected necrosis. Current painmanagement with Gabapentin, PRN norco, Dilaudid and Levsin with Spasm. -D/W: Wen Please call back any time if I can be of further assistance. Carolyn Boyd NP Submit an eTicket TY PHYSICIAN * Sari Sanford - 04/12/2018 2:22 PM CST Plasma exchange #2 completed using the R IJ tunneled catheter for draw and return without any problems. 2700 mls 5% Albumin used as replacement fluid for a 1 volume exchange. Patient tolerated procedure without incident. Post ICA resulted at 4.6 TY PHYSICIAN * Richard Mead MD - 04/12/2018 8:18 AM CST [facility] Adult Progress Note Admit Date: 04/09/2018 Date of Note: 04/12/2018, 8:18 AM LOS: 2 days Plan Active Problems: Principal Problem: Other acute pancreatitis with uninfected necrosis Active Problems: Hypertriglyceridemia Abdominal pain History of plasmapheresis Hypertriglyceridemia-Induce Acute Pancreatitis - Patient with longstanding issues with HTG and prior episodes of acute pancreatitis 2/2 this issue. Lipase normal, though this is common for patient. CT with evidence of mild inflammation. Discussed case with patient's lipidologist Dr. Mayer who isaiah mmended pursuing plasmapheresis. First session of pheresis yesterday; tolerated well. TG trending down, but not quite at goal of <500. Plasmapheresis today. Continue IVF, NPO, pain control and antiemetics. Cont bowel regimen; mirilax added today, though patient resistant to taking. Hypertriglyceridemia - Complications as above. Continue statin, fibrate; will switch niacin to SR. F/u with Dr. Mayer and Endocrinology at discharge. DM - Control suboptimal as outpatient recently with most recent HgbA1c 8.7% in February. BG well controlled here. Continue lantus 15 units BID with Accuchecks and CSI Q4H while NPO. F/u with endocrinology as scheduled after discharge. 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 Current Planned Disposition - Dispo: home pending improvement in acute pancreatitis. Subjective Previous history of present illness and review of systems have been reviewed today as documented inthe H&P on 04/09/2018; medications, labs, studies, notes, orders and consults have been reviewed. I have reviewed the notes from yesterday. Overnight patient with continued pain, but improving and well controlled. Still no BM, but not wanting to take Miralax. Objective BP 105/81 (BP Location: Right arm, Patient Position (BP): Supine) Pulse 81 Temp 98.2 ??F (36.8 ??C) (Oral) Resp 14 Ht 5' 5 (1.651 m) Wt 89.8 kg (198 lb) SpO2 91% BMI 32.95 kg/m?? Temp (24hrs), Av.4 ??F (36.9 ??C), Min:98 ??F (36.7 ??C), Max:99.1 ??F (37.3 ??C) Exam: Gen alert, cooperative, no distress, appears stated age Lungs clear to auscultation bilaterally Heart regular rate and rhythm, S1, S2 normal, no murmur, click, rub or gallop Abdomen soft, mild epigastric TTP. Bowel sounds slightly hypoactive. No masses, No organomegaly Extremities extremities normal, atraumatic, no cyanosis or edema Mental Status AOx4 Data: I have reviewed all new labs and studies resulted and pertinent ones are noted below: TG trending down. Hgb slowly trending down slightly. More than 30 minutes were spent in the care of this patient today; more than 50% was spent in discussion of expected course of disease, discussion of prognosis, discharge planning, coordination of care and discussion of lab and test results. Richard Mead MD TY PHYSICIAN * Manisha Madera RN - 04/11/2018 6:39 PM CST Undress and Assess performed by: Joan Dyer RN Admission or upon transfer to: [facility] ~~~~~~~~~~~~~~~~~~~~~~~~~~~~ Patient does not have skin breakdown. Wound care consult was not initiated. Location/ Description of breakdown: PT arrived to room by wheelchair. No distressed observed. Significant other was with pt. Pt was placed on her IV fluids and she was given her oral medication. She requested water at that time and shewas reminded that she was NPO and that nothing should be drank or eating within 30 min of taking Carafate. Pt acknowledge the education. Pt reported 7/10 pain and was given IV dilaudid due to oral pain medication not being available. IV tube was times and dated. TY PHYSICIAN * Jack Arteaga MD - 04/11/2018 3:08 PM CST Therapeutic Apheresis Note: CC: 42 yo female with hypertriglyceridemia associated acute pancreatitis (ASFA category III indication for apheresis). HPI: Epigastric abdominal pain, nausea and vomiting x1 day on background of chronic abdominal pain. PMH: Hypertriglyceridemia (associated with prior episodes of pancreatitis), DM, anxiety, GERG, HLD,hypothyroidism, PCOS Meds: as per EPIC. Exam: Patient resting in bed. Catheter in place in R chest with partially occlusive dressing and some dried blood. No active drainage from catheter site. No erythema or induration noted. Labs: WBC 7.1, Hgb 11.0, Hct 34.7, Plt 183, triglycerides 1,490 (pre-procedure) A&P: 1. 42 yo female with acute hypertriglyceridemia associated acute pancreatitis requires plasma exchange. 2. Plan plasma exchange daily until triglycerides < 500. 3. We will perform a 1.0 volume plasma exchange with all albumin replacement with 100% fluid balance with 2 g calcium gluconate over the procedure. Procedure #1: Patient tolerated the procedure well. No signs or symptoms of hypocalcemia noted. I have seen and examined the patient, reviewed pertinent notes and records, and remained immediately available throughout the procedure. Jack Arteaga MD, PhD [employer] Developer, therapeutic apheresis service [phone] TY PHYSICIAN * Lynne Quach MD - 04/11/2018 1:27 PM CST [facility] Adult Progress Note Admit Date: 04/09/2018 Date of Note: 04/11/2018, 1:28 PM LOS: 1 day Plan Pancreatitis, recurrent -- pt with h/o of pancreatitis in 2017 and earlier this year. Pain similar.CT findings congruent with clinical picture. -- Per Dr. Mayer, pursing plasmapheresis today given successful management will prior pancreatitis >> will trend TG until =/< 500 -- NPO, will work to slowly advance diet with improvement in pain -- Pain management with gabapentin, PRN norco, diluadid -- Nausea treatment with PRN zofran and compazine DM, uncontrolled -- ED labs with glucose 227, HA1c 8.7 on 03/08/18. -- lantus 15 units BID, with LDSS -- continue 150 ml/hr D5LR ?? 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 GERD -- continue Protonix 40mg BID, Carafate qACHS Smoking -- continue nicotine patches Depression -- resume POWER SEWING MACHINE OPERATOR citalopram Hypothyroidism -- resume POWER SEWING MACHINE OPERATOR levothyroxine Quality/Safety/Core Measures/Disposition Planning: DVT Prophylaxis - Enoxaparin PT POC OT POC Activity Order: Present Activity: in bed (04/11/18 1235) Pettit catheter:absent Current Code Status -Full Code Plan discussed with patient, questions answered. Current Planned Disposition - Dispo: home pending improvement of pain, improved of triglycerides, and tolerating PO. Subjective Previous history of present illness and review of systems have been reviewed today as documented inthe H&P on 04/09/2018; medications, labs, studies, notes, orders and consults have been reviewed. I have reviewed the notes from yesterday. Overnight : pain better this morning with start of dilaudid. Objective BP 120/75 (BP Location: Right arm, Patient Position (BP): Supine) Pulse 76 Temp 98 ??F (36.7 ??C) (Oral) Resp 18 Ht 5' 5 (1.651 m) Wt 89.8 kg (198 lb) SpO2 92% BMI 32.95 kg/m?? Temp (24hrs), Av.4 ??F (36.9 ??C), Min:98 ??F (36.7 ??C), Max:98.6 ??F (37 ??C) Exam: Gen tired, cooperative, no distress, appears stated age Lungs clear to auscultation bilaterally Heart regular rate and rhythm, S1, S2 normal, no murmur, click, rub or gallop Abdomen soft, tenderness to upper abdomen. Bowel sounds normal. No masses, No organomegaly Extremities extremities normal, atraumatic, no cyanosis or edema Data: I have reviewed all new labs and studies resulted and pertinent ones are noted below Recent Labs 04/09/18 1926 04/11/18 0701 WBC 9.3 7.1 HGB 13.5 11.0* HCT 40.5 34.7* PLT 246 183 NA 135* 136 K 4.2 3.6 CL 97* 101 CO2 22 24 BUN 12 8 CREAT 0.57 0.61 GLUCOSE 227* 162* ALT <5 -- AST <5 -- INR -- 1.0 More than 30 minutes were spent in the care of this patient today; more than 50% was spent in discussion of expected course of disease, discussion of prognosis, discharge planning, coordination of care and discussion of lab and test results. Lynne Quach MD This patient is covered by internal medicine residents ?? To reach Internal Medicine covered patients: ?? Saturday-Saturday 7 AM- 5 PM: Page via the [facility] E-List 5 PM-7 AM: Call the controller mechanic internal control manager at [employer] phone [phone]. If no response please page the senior resident at [phone] ?? Saturday and Saturday: 7 AM-12 PM: [facility] 12 PM-7 AM: Call the controller mechanic internal control manager at [employer] phone [phone]. If no response please page the senior resident at [phone] ?? If no response to the above steps in 10 minutes, please page the attending physician. TY PHYSICIAN Associated attestation - Richard Mead MD - 04/11/2018 7:44 PM SAFETY PHYSICIAN [facility] Adult Hospitalist Attending Note I reviewed the medical record including the resident???s note (available as hyperlink below) on 04/11/2018. I reviewed and confirmed the history, physical [...] note; my notable physical exam findings include: Pain still present, but controlled on current regimen. Seen after plasmapheresis; tolerated well. TG trending down. General: NAD CV: RRR Lungs: CTAB Abdomen: Soft, mild epigastric TTP, BS+ I have reviewed the labs that were obtained over the last 24 hours. 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 TG down trending this AM with IVF alone. Pathology consulted for plasmapheresis; first session today. Trend TG with goal <500. Continue IVF, NPO, pain control, antiemetics. More than 30 minutes were spent in the care of this patient today; more than 50% was spent in discussion of expected course of disease, discussion of prognosis, discharge planning, coordination of care and discussion of lab and test results. Richard Mead MD [facility] Hospitalist * Daniel Whitehead, CLAU - 04/11/2018 12:00 PM CST Plasma exchange #1 completed today using right chest tunneled catheter for draw and return. 1.0 volume 100% fluid balance using 5% Albumin as replacement fluid completed. Patient tolerated procedure well. 2 Grams calcium gluconate given over procedure. Labs will be drawn in AM to assess future procedures per Dr. Arteaga. TY PHYSICIAN * Araceli Duke RN - 04/11/2018 9:02 [place] [id number] spoke to charge nurse, will talk to the nurse that did the procedure and make sure it is corrected. TY PHYSICIAN * Araceli Duke RN - 04/10/2018 7:19 PM CST Note says Dr. Willoughby to place dialysis catheter, pt went to IR for placement no note on placement. They documented it as a central line not as hemodialysis catheter. Tried to call IR to have it changed, no one answered. Back in the am will check then to have it changed. TY PHYSICIAN * Mariah Narvaez RN - 04/10/2018 6:47 PM CST Casandra has pain controlled by IV medication. Intermittent nausea controlled with multiple pain modalities, no vomiting. Voiding adequate amounts per hat. Dialysis catheter in place, c/d/i. VS as stated, afebrile. Contacted physician regarding order for Plasmapheresis today, plan for tomorrow. Personal belongings and call button remain in reach. TY PHYSICIAN * James Cleaning MD - 04/10/2018 5:33 PM CST Brief Cross Coverage note: REC'D PAGE FROM: RN, patient has itchiness CHART REVIEW: No allergies Stable vitals ACTION TAKEN: Benadryl IV PRN James Lai MD PGY1 IM TY PHYSICIAN * Aura Parks RN - 04/10/2018 4:51 PM CST Procedure complete. New PIV started. Report called to Mariah OLGUIN TY PHYSICIAN * Aura Parks RN - 04/10/2018 4:00 PM CST Pt arrived in [facility]14 via transport. ID/BD/allergies verified. Dr Sheffield at bedside, consent signed andin chart. Monitors applied. TY PHYSICIAN * Nila Jacobs MD - 04/10/2018 3:16 PM CST I spoke with Dr Willoughby about request for placing a dialysis catheter for aphresis. I appreciate hishelp TY PHYSICIAN * Ingris Chambers RN - 04/10/2018 12:[address] Hayes-ok to hold lantus and humalog at lunch time. TY PHYSICIAN documented in this encounter H&P Notes * Lynne Quach MD - 04/10/2018 10:51 AM CST [facility] Internal Medicine Teaching Service History & Physical Lynne Quach MD 04/10/2018 10:52 AM Patient Name: Casandra Doss Admit Date: 04/09/2018 Supervising Resident: Hannah Jacobs MD PCP: Guerrero Middleton PA-C Subjective: CC: upper abdominal pain HPI: Casandra Doss is a 42 y.o. female with PMH of h/o pancreatitis in the past two years, DM insulin dependent, hypertriglyceridemia, GERD, hypothyroidism, depression who presents with acute worsening of abdominal pain that radiates to her back. Pt states at baseline she has 3/10 tenderness to upper abdomen. Yesterday night pain progressed to 8/10 sharp stabbing and burning pain. Pain similar to when she had pancreatitis. Occasionally chronic pain is worsened with meals. No notable relieving factors. Pt endorses nausea, vomiting, diarrhea for 3 days, steatorrhea, fatigue, night sweats and headache. Denies fever/chills, hematemesis, melena, pale stools, and unintentional weight loss. Prior admissions for pancreatitis required treatment with insulin drip x2 and plasmapheresis x1. There is no family history of hypertriglyceridemia. Pt denies alcohol intake, but endorses 25 pack year history. PMHx: Past Medical History: Diagnosis Date ??? [...] 05/15/2011 ??? PCOS (polycystic ovarian syndrome) 05/15/2011 PSurgHx: Past Surgical History: Procedure Laterality Date ??? HX APPENDECTOMY ??? HX HYSTERECTOMY partial due to endometriosis 2006 ??? [place] ESOPHAGOGASTRODUODENOSCOPY TRANSORAL DIAGNOSTIC N/A 03/08/2018 ESOPHAGOGASTRODUODENOSCOPY performed by Ceasar Vega MD at [facility] Medications: Medication List CONTINUE taking [...] hours as needed for Spasm. Signed by: Jack Morel DO Quantity: 30 Tablet Refills: 0 [...] 30 minutes before eating anything. Signed by: Jack Morel DO Quantity: 30 Tablet Refills: 0 [...] by mouth 2 times daily. Refills: 0 [id number]-E-FA-Fish Oil [phone] et-av-mgc-mcg Capsule Take 2 Caplets by mouth 2 times daily. Signed by: Odette Che MD Quantity: 120 Capsule Refills: 3 ondansetron 4 mg Tablet, Rapid Dissolve Commonly known as: ZOFRAN ODT Dissolve 1 Tablet on top of tongue,then swallow with saliva every 6 hours as needed for nausea/vomiting. Signed by: Jack Morel DO Quantity: 30 Tablet Refills: 0 [...] Green Pepper Hives ??? Adhesive Unknown ??? Adhesive Tape-Silicones Hives FHx: family history [...] of Systems: History from the patient General positive for - night sweats, fatigue negative for - chills, fever or weight loss ENT negative for nasal congestion, drainage or bleeding, sore throat, dysphagia or ear pain Heme/Lymph negative for swollen glands or abnormal bleeding Endocrine negative for polyuria/polydipsia or new changes in weight CV negative for chest pain or dyspnea on exertion Respiratory negative for cough, shortness of breath, or wheezing GI positive for - abdominal pain, change in stools, diarrhea, heartburn and nausea/vomiting negative for - blood in stools, constipation or melena negative for dysuria, trouble voiding, or hematuria MS negative for neck pain or joint pain or swelling Neuro negative for TIA or stroke symptoms Derm negative for skin rashes or unusual skin lesions Objective: Initial Vitals BP 04/09/18 1820 131/82 Pulse 04/09/18 2120 79 Resp 04/09/18 1820 16 Temp 04/09/18 1820 98.2 ??F (36.8 ??C) Temp src 04/09/18 1820 Oral SpO2 04/09/18 1820 100 % BP 104/75 (BP Location: Left arm, Patient Position (BP): Supine) Pulse 72 Temp 98 ??F (36.7 ??C) (Oral) Resp 16 Ht 5' 5 (1.651 m) Wt 89.8 kg (198 lb) SpO2 94% BMI 32.95 kg/m?? Orthostatics: not done General appearance alert, cooperative, tired, occasionally moaning, appears stated age Head Normocephalic, without obvious abnormality, atraumatic Eyes Conjunctivae/corneas clear. PERRL, EOM's intact. Ears Normal external exam. Hearing grossly intact. Nose Nares normal. Septum midline. Mucosa normal. No drainage or sinus tenderness. Throat Lips, mucosa, and tongue normal. Teeth and gums normal Neck Supple, symmetrical, trachea midline, no adenopathy, thyroid: not enlarged, symmetric, no tenderness/mass/nodules, no carotid bruit and no JVD Back ROM normal. No tenderness Lungs clear to auscultation bilaterally Chest wall No tenderness Heart regular rate and rhythm, S1, S2 normal, no murmur. No rub or gallop. 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 No rashes or lesions Lymph nodes Cervical, supraclavicular, and axillary nodes normal. Neurologic AOx3. Gait normal. Reflexes and motor strength normal and symmetric. Cranial nerves 2-12and sensation grossly intact. Rectal deferred Summary of Pertinent Labs/Radiology/EKG Recent Labs 04/09/181925 WBC 9.3 HGB 13.5 HCT 40.5 PLT 246 NA 135* K 4.2 CL 97* CO2 22 BUN 12 CREAT 0.57 GLUCOSE 227* ALT <5 AST <5 Assessment and Plan: Principal Problem: Abdominal pain Active Problems: Hypertriglyceridemia Abdominal pain -- likely recurrent pancreatitis given symptoms, history and persistent TG. However lipase level normal, could be consistent with chronic pancreatitis. Pt also has history of GERD and notable smoking history. Ddx: acute on chronic pancreatitis chronic pancreatitis flare up vs gastritis vs cholecystitis -- CT Abdomen ordered: -- NPO, will work to slowly advance diet with improvement in pain -- Pain management with gabapentin, norco, morphine -- Nausea treatment with PRN zofran and compazine -- will attempt to contact Dr. Moreno CHING, blade -- ED labs with glucose 227, HA1c 8.7 on 03/08/18. 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 I discussed the assessment of plan for the above patient with Dr. Mead. Lynne Quach MD TY PHYSICIAN Associated attestation - Richard Mead MD - 04/10/2018 10:43 PM SAFETY PHYSICIAN [facility] Adult Hospitalist Attending Note I reviewed the medical record including the resident???s note (available as hyperlink below) on 04/10/2018. I reviewed and confirmed the history, physical [...] note; my notable physical exam findings include: Brief HPI: Mrs. Doss is a 42 yo F with PMH of hypertriglyceridemia complicated by prior episodes of hypertriglyceridemia-induce pancreatitis who presents with epigastric abdominal pain, nausea and vomiting x1 day. She notes chronic abdominal pain, but the day prior to admission she began having more intense abdominal pain that was unrelenting despite home medications. She denies EtOH use, fevers, chills. Has had poor oral intake since the pain started. She presented to the ED due to concerns that her pain may be due to pancreatitis due to her HTG. In the ED, evaluation was notable for hypertriglyceridemia and a normal lipase. She was admitted for further care. General: NAD CV: RRR Lungs: CTAB Abdomen: Soft, inconsistent TTP in the epigastrum, BS+ I have reviewed the labs that were obtained over the last 24 hours. Notable amendments to the assessment and plan include: Abdominal pain - Typical abdominal pain and CT findings consistent with pancreatitis; lipase nl, but this has been the case for her with prior episodes. This appears to be a mild episode. Discussed case with Dr. Mayer, patient's lipidologist, and she recommended pursuing plasmapheresis as this has been helpful in the past. Will get pheresis catheter placed and pursue pheresis starting in AM. Continue IV hydration, pain control. PRN antiemetics. Discussed importance of smoking cessation with patient. More than 1 hour were spent in the care of this patient today; more than 50% was spent in discussion of expected course of disease, discussion of prognosis, discharge planning, coordination of care and discussion of lab and test results. Richard Mead MD [facility] documented in this encounter ED Notes * Demi Galvan RN - 04/09/2018 10:47 PM CST at bs TY PHYSICIAN * Demi Galvan RN - 04/09/2018 10:36 PM CST aware of pt's pain TY PHYSICIAN * Demi Galvan RN - 04/09/2018 9:19 PM CST 42 yr old pt arrives to the ED via triage with complaints of Abdominal Pain. Pain is located in L.U.Q. raidates to chest and back. Pain started this AM. Pain is burning, sharp, stabbing, shooting. 02/05. Reports N/V/D. Pt has hx of pancreatitis. States I need zofran or compazine. Reports takingcompazine at home without relief, denies any fevers, chills. Pt is tearful. Speaks in clear complete sentences. Airway intact, even and unlabored, skin is pwd. TY PHYSICIAN * Ambika Llanes RN - 04/09/2018 7:20 PM CST Emergency Department Adult Female Abdominal Pain Protocol [facility] ORDERS ARE ENTERED ???PER PROTOCOL?? Nursing Orders: o Insert peripheral IV (excessive vomiting or diarrhea) Laboratory Orders: o CBC with diff ([id number]) o CMP (LAB17) o If female of childbearing age: POC Urine HCG (POC7) or HCG Qualitative urine ([id number]) if sending to lab o Urinalysis with Reflex Microscopy (RWR017) o Serum HCG (if knowingly ) (AQE690) o Obtain serum lipase (LAB99) if upper abdominal pain o Draw and send extra tubes to lab (ED hold) ([id number]) Diagnostic Test Orders: o If RUQ pain, [...] by: Margarita Obando RN, BSN, YEFRI Nurse Chief Radiology Approved by: Medical Executive Committee, Nursing Leadershp, [employer] Date:03/2017 TY PHYSICIAN * Alina Leyva RN - 04/09/2018 6:20 PM CST We promote safety at our facility and do not allow any type of weapon in the building. Do you have a weapon or something that could be used as a weapon on you today? denied possession of any weapons or firearms at this time TY PHYSICIAN * Yadira Huff MD - 04/09/2018 6:06 PM CST HISTORY OF PRESENT ILLNESS Casandra Doss, a 42 y.o. female presents to the ED with a Chief Complaint of Abdominal Pain Subjective 9:05 PM: Casandra Doss is a 42 y.o. female with a history of recurrent pancreatitis, hypertriglyceridemia, type 2 DM, GERD, who presents to the Emergency Department with complaints of LUQ abdominal pain under her ribs that worsened at approximately 10:30 AM today. Pt has chronic abdominal pain from recurrent pancreatitis. She admits to chills, nausea, vomiting, diarrhea. She denies hematemesis orhematochezia. Pt took anti-emetics at home that did not provide any relief. Patient has history of pancreatitis with significantly elevated triglycerides. Recent labs done show triglycerides at 2531. Physician(s): Guerrero Middleton PA-C History provided by: The patient Arrived by: Private vehicle Abdominal Pain Pain location: LUQ Pain radiates to: RUQ Pain severity: Moderate Onset quality: Sudden Duration: 11 hours Timing: Constant Progression: Worsening Chronicity: Chronic Relieved by: Nothing Ineffective treatments: Vomiting Associated symptoms: chills, diarrhea, nausea and vomiting Associated symptoms: no chest pain, no constipation, no cough, no fever, no shortness of breath, nosore throat, no vaginal bleeding and no vaginal discharge REVIEW OF SYSTEMS Review of Systems Constitutional: Positive for chills. Negative for activity change, appetite change and fever. HENT: Negative for congestion, dental problem, ear pain, nosebleeds, sore throat and trouble swallowing. Eyes: Negative for visual disturbance. Respiratory: Negative for cough, chest tightness and shortness of breath. Cardiovascular: Negative for chest pain, palpitations and leg swelling. Gastrointestinal: Positive for abdominal pain, diarrhea, nausea and vomiting. Negative for abdominal distention and constipation. Genitourinary: Negative for difficulty urinating, menstrual problem, pelvic pain, vaginal bleeding and vaginal discharge. Musculoskeletal: Negative for joint swelling, myalgias and neck pain. Skin: Negative for rash. Neurological: Negative for dizziness, syncope, light-headedness and headaches. Hematological: Does not bruise/bleed easily. Psychiatric/Behavioral: Negative for hallucinations, self-injury and suicidal ideas. The patient isnot nervous/anxious. PAST MEDICAL HISTORY REVIEWED MEDICAL: Patient has a past medical history of Anxiety; Depression; Diabetes mellitus; DM type 2 (diabetes mellitus, type 2); Family history of diabetes mellitus (05/15/2011); Family history of early CAD (05/15/2011); GERD (gastroesophageal reflux disease); High triglycerides; History of gestational diabetes ( 05/15/2011); HLD (hyperlipidemia); Hypothyroidism; Metabolic syndrome (05/15/2011); and PCOS (polycystic [...] with long-term current use of insulin; Hyponatremia; Epigastric abdominal pain; GERD (gastroesophageal reflux disease); Abdominal pain; Pancreatitis, recurrent; Hypertriglyceridemia; Epigastric abdominal pain; Nausea vomiting and diarrhea; Depression with anxiety; Type 2 diabetes mellitus without complication, with long-term currentuse of insulin; and Acquired hypothyroidism on her problem list. ALLERGIES Green pepper; Adhesive; and Adhesive tape-silicones HOME MEDICATIONS Patient's Home Medications Current Home Medications [id number] (CREON 12) 60 CAPSULE [id number] (CREON) CAPSULE CITALOPRAM (CELEXA) 40 MG ORAL TABLET CITALOPRAM (CELEXA) 40 MG TABLET FENOFIBRATE (LOFIBRA) 160 MG ORAL TAB FENOFIBRATE NANOCRYSTALLIZED (TRICOR) 145 MG TABLET HYDROCORTISONE 1 % OINTMENT HYOSCYAMINE 0.125 MG TABLET, SUBLINGUAL INSULIN ASPART PROTAMINE-ASPART (NOVOLOG MIX 70-30) 100 UNIT/ML (70-30) PEN SYRINGE INSULIN GLARGINE (LANTUS) 100 UNIT/ML INJECTION INSULIN GLARGINE (LANTUS) 100 UNIT/ML INJECTION LEVOTHYROXINE 200 MCG TABLET LEVOTHYROXINE 200 MCG TABLET LORAZEPAM (ATIVAN) 1 MG TABLET LORAZEPAM (ATIVAN) 1 MG TABLET MAGNESIUM OXIDE (MAG-OX) 400 MG TABLET METFORMIN (GLUCOPHAGE) 500 MG ORAL TABLET METFORMIN (GLUCOPHAGE) 500 MG TABLET NIACIN (NIACOR) 500 MG TABLET NIACIN (NIACOR) 500 MG TABLET OMEGA-3 ACID ETHYL ESTERS (LOVAZA) 1 GRAM CAPSULE [id number]-FA-FISH OIL [id number] [id number]-DZ-UWT-MCG CAPSULE [id number] OIL ORAL ONDANSETRON (ZOFRAN ODT) 4 MG TABLET, RAPID DISSOLVE PANTOPRAZOLE (PROTONIX) 40 MG TABLET, DELAYED RELEASE (E.C.) PANTOPRAZOLE (PROTONIX) 40 MG TABLET, DELAYED RELEASE (E.C.) ROSUVASTATIN (CRESTOR) 20 MG TABLET ROSUVASTATIN (CRESTOR) 5 MG TABLET SENNOSIDES (SENOKOT) 8.6 MG TABLET SPIRONOLACTONE (ALDACTONE) 100 MG ORAL TABLET SPIRONOLACTONE (ALDACTONE) 25 MG TABLET TRAZODONE (DESYREL) 100 MG TABLET TRAZODONE (DESYREL) 50 MG TABLET Medications Modified during this Encounter Medications Discontinued during this Encounter Objective PHYSICAL EXAM INITIAL VS BP: 131/82 (04/09/181819), Heart Rate: 100 bpm (04/09/181819), Resp: 16 (04/09/181819), Temp: 98.2 ??F (36.8 ??C) (04/09/181819), Temp src: Oral (04/09/181819), SpO2: 100 % (04/09/181819), Height: 5' 5 (165.1 cm) (04/09/181819), Weight: 90.7 kg (200 lb) (04/09/181819), BMI (Calculated): 33.28 (04/09/181819) No LMP recorded. Patient has had a hysterectomy. Physical Exam Constitutional: She is oriented to person, place, and time. No distress. Appears uncomfortable HENT: Head: Normocephalic and atraumatic. Mouth/Throat: Oropharynx is clear and moist. Eyes: Pupils are equal, round, and reactive to light. EOM are normal. Neck: Normal range of motion. Neck supple. No thyromegaly present. Cardiovascular: Normal rate, regular rhythm, normal heart sounds and intact distal pulses. No murmur heard. Pulmonary/Chest: Effort normal and breath sounds normal. No respiratory distress. She has no wheezes. She has no rales. Abdominal: Soft. Bowel sounds are normal. She exhibits no distension and no mass. There is tenderness in the right upper quadrant and left upper quadrant. There is no guarding. Tenderness especially on left upper quadrant Musculoskeletal: Normal range of motion. She exhibits no edema or tenderness. Lymphadenopathy: She has no cervical adenopathy. Neurological: She is alert and oriented to person, place, and time. No cranial nerve deficit. Coordination normal. Skin: Skin is warm and dry. No rash noted. No erythema. Psychiatric: She has a normal mood and affect. Her behavior is normal. Nursing note and vitals reviewed. DIAGNOSTICS LAB: CBC WITH DIFFERENTIAL - Abnormal Result Value WBC 9.3 RBC 4.46 HEMOGLOBIN 13.5 HEMATOCRIT 40.5 MCV 90.8 MCH 30.3 MCHC 33.3 RDW 14.0 RDW-STDEV 46.5 PLATELETS 246 MPV 9.1 (*) NEUTROPHILS 63 LYMPHOCYTES 30 MONOCYTES 5 EOSINOPHILS 1 BASOPHILS 0 IMMATURE GRANULOCYTES 1 NEUTROPHIL ABSOLUTE 5.86 LYMPHOCYTE ABSOLUTE 2.79 MONOCYTE ABSOLUTE 0.48 EOSINOPHIL ABSOLUTE 0.05 BASOPHILS ABSOLUTE 0.04 IMMATURE GRANULOCYTES ABSOLUTE 0.06 (*) COMPREHENSIVE METABOLIC PANEL - Abnormal SODIUM 135 (*) POTASSIUM 4.2 CHLORIDE 97 (*) CO2 22 CALCIUM 9.7 BUN 12 CREATININE 0.57 GLUCOSE 227 (*) TOTAL PROTEIN 7.4 ALBUMIN 4.3 BILIRUBIN TOTAL 0.2 (*) ALKALINE PHOSPHATASE 75 AST <5 ALT <5 GFR >60 GFR, >60 ANION GAP 16 URINALYSIS WITH REFLEX MICROSCOPIC - Abnormal COLOR UA Yellow CLARITY UA Clear SPECIFIC GRAVITY UA 1.020 PH UA 5.0 LEUKOCYTE ESTERASE UA Negative NITRITE UA Negative PROTEIN UA Negative GLUCOSE UA 3+ (*) KETONES UA Trace (*) UROBILINOGEN UA Normal BILIRUBIN UA Negative BLOOD UA Negative TRIGLYCERIDE - Abnormal TRIGLYCERIDE 2,480 (*) LIPASE - Normal LIPASE 35 RADIOLOGY: No orders to display No orders to display EKG: PROCEDURES Procedures MEDICAL DECISION MAKING AND PLAN OF CARE --Upon initial evaluation, discussed with patient the plan for labs. ED provider and ED nurse verbally discussed patient plan of care at this time. MDM Summary Statement: This is a 42-year-old female who presents for evaluation of upper abdominal pain. She has a historyof pancreatitis related to her elevated triglycerides. Her triglycerides recently were as high is 3500 but repeat testing here shows that they have dropped down slightly to 2400. Her lipase is negative. She was recently hospitalized and they found no acute signs of pancreatitis. Patient continues to complain of severe pain despite medications here in the ER. She feels uncomfortable going home andwould like to investigate the possibility of plasmapheresis. Will admit for observation. Diagnostic Considerations: Chronic abdominal pain/IBS/pancreatitis/ I have reviewed previous: notes and labs I have reviewed current: labs I have reviewed nursing notes related to past medical history, social history, and review of systems and agree, unless otherwise noted. Medications Administered During the ED Stay from 04/09/2018 1806 to 04/09/20182221 Date/Time Order Dose Route Action 04/09/20182142 morphine 4 mg/mL injection 4 mg 4 mg IV Given 04/09/20182142 ondansetron (ZOFRAN) 4 mg/2 mL injection 4 mg 4 mg IV Given 04/09/20182142 sodium chloride 0.9% bolus solution 1,000 mL 1,000 mL IV New Bag . New Prescriptions for this Encounter LAST VS BP: 123/80 (04/09/182119), Heart Rate: 100 bpm (04/09/181819), Resp: 20 (04/09/182119), Temp: 98.2 ??F (36.8 ??C) (04/09/181819), Temp src: Oral (04/09/181819), SpO2: 96 % (04/09/182119) CLINICAL IMPRESSION Final diagnoses: None DISPOSITION, EDUCATION AND MEDICATION RECONCILIATION Medications reconciled. See after visit summary for patient education on discharged patients. ATTESTATION STATEMENTS This note has been prepared by Gloria Gomez acting as a scribe for Dr. Yadira Huff on 04/09/2018 at. The scribe's documentation has been prepared under my direction and personally reviewed by me,Yadira Huff , in its entirety on 04/09/18 at 10:43 PM. I confirm that the note above accurately reflects all work, treatment, procedures, and medical decision making performed by me. TY PHYSICIAN documented in this encounter Miscellaneous Notes * Care Plan - Thiago Carpio, RN - 04/14/2018 7:08 PM CST Casandra Doss, 42 yo F. A&Ox4. Reported moderate ab pain. Medications given per MAR. Up ad gaudencio. VSS IV K+ given and tolerated. Tunneled dialysis catheter removed by Dr. Mead. Pressure held for over 10 minutes. Discharge paperwork explained. No questions at this time. Casandra Doss will be discharged via ambulatory to home. Casandra Doss is accompanied by spouse andwill be transported via private vehicle. TY PHYSICIAN * Care Plan - Sandra Hdz RN - 04/14/2018 11:05 AM CST Discharge Planning ??? Identify discharge needs upon admission and through discharge Progressing Clinical documentation reviewed. Comprehensive Discharge Planning [...] consult if needs for discharge are identified. [facility] Care Management will continue to follow for discharge planning. Sandra Hdz Rn Case Manager [phone] TY PHYSICIAN * Care Plan - Wen Moss RN - 04/14/2018 5:42 AM CST Casandra Doss is a 42 y.o. female. A&O 4. Vital signs stable. Ambulating independently. Percocet given once for pain. PIV infusing without complication. Intermittent nausea on a clear liquid diet. POC glucose ACHS and 0200. Adequate urine output per bathroom hat. 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 Call light and personal belongings within reach. Patient sleeping between care. TY PHYSICIAN * Care Plan - Jeff Tariq RN - 04/13/2018 7:25 PM CST Pt complained of pain and nausea throughout the day. Given PRN medicine multiple times. Pt advancedto clear liquid diet at her belief she could tolerate it. Continuing to monitor blood sugars. Tenderness on palpation of LUQ of abdomen. TY PHYSICIAN * Care Plan - Wen Moss RN - 04/13/2018 6:09 AM CST Casandra Doss is a 42 y.o. female. A&O 4. Vital signs stable. Ambulating independently. Patient educated that dilaudid is ordered for severe unrelenting pain and she states that Lebec is ineffective; MD aware. Patient sleeping between care. PIV infusing without complication. Intermittent nausea on a NPO sips w/ meds diet. POC glucose ordered q4 hr. Adequate urine output per bathroom hat. 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 Call light and personal belongings within reach. TY PHYSICIAN * Care Plan - Dickson Seth RN - 04/12/2018 6:03 PM CST Casandra has c/o moderate pain throughout the shift, relieved with PO Lebec and IV Dilaudid. C/o nauseaas well, relieved with IV Zofran and Compazine. Remains NPO. Given Miralax in water per physician; left at bedside for pt to sip on throughout the shift. Pt state it is upsetting her stomach; RN discussed with pt that it doesn't look like she drank anything from the cup, pt states she took a couple sips . Physician aware that pt is not drinking Miralax. 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 Educated pt on the importance of taking stool softeners d/t pain management and side effect of constipation. Up ad gaudencio. Voiding adequate amount. VSS, afebrile. q4 BS ranged 125-175, insulin given per MAR. Plasmapheresis completed today without issues. Will continue to monitor. The POC was discussed with the patient and the patient verbalized understanding. Bed remains in low, locked position with call light/phone/personal belongings within reach. INTERDIS PW: ABDOMINAL PAIN-ADMIT TO MED SURG [facility] Day 3 ??? Nutrition: Patient tolerates a diet of choice with no evidence of pain, nausea, vomiting and/ordiarrhea. Not Met Gastrointestinal ??? Achieve optimal gastrointestinal function by discharge or maintain baseline function Variance Nutrition/Endocrine ??? Achieve optimal nutrition and fluid status to meet metabolic needs throughout hospitalization Variance Pain, Potential/Actual ??? Verbalizes/displays acceptable comfort level or baseline comfort level Variance TY PHYSICIAN * Care Plan - Justo Meyers RN - 04/12/2018 6:17 AM CST Patient is A/O X4 VSS ambulates on her own to the bathroom. Complains of abdominal pain. Lebec and Dilaudid given with dilaudid only giving relief. NPO status maintained. Nausea noted and relieved with zofran TY PHYSICIAN * Care Plan - Wen Moss RN - 04/11/2018 6:18 PM CST Casandra Doss is a 42 y.o. female. A&O 4. Vital signs stable. Ambulating w/ independently. Lebec given once for pain. PIV infusing without complication. Hemodialysis catheter capped. Intermittent nausea on a NPO sips w/ meds diet. Voiding adequately per bathroom hat. 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 Patient resting between care. Call light and personal belongings within reach. TY PHYSICIAN * Care Plan - Wen Moss RN - 04/11/2018 4:15 PM CST ADULT IV Flush Protocol [facility] ORDERS ARE ENTERED ???PER PROTOCOL?? Enter the protocol in the patient's electronic health record using smartphrase: .adultivflushprotocol NURSING ORDERS Ok to utilize existing central venous access (example: Implanted Port, PICC) unless otherwise directed by provider. (Exclusion: Hemodialysis line may not be accessed without order from provider) Local Anesthetic for IV Initiation Panel (18 and over) ORDER SET Local Anesthetic for use to initiate IV (orders to discontinue 24 hours from initiation) ??? Lidocaine 1% 0.3mL intradermal ONE TIME to numb area of IV catheter insertion or port access PRN ??? Lidocaine 4% (L.M.X.4) applied topically ONE TIME 15 minutes prior to IV catheter insertion PRN Peripheral IV (Peripheral and Midline Catheter) Flush Panel (18 yr and over) ORDER SET ??? Line care and maintenance o Sodium chloride 0.9% (normal saline) flush 5 mL every 12 hours when locked o Sodium chloride 0.9% (normal saline) flush 5 mL PRN before and after medication administration orto verify line patency ??? Carrier fluid (select most appropriate fluid for capability with medications) o Sodium chloride 0.9% (normal saline) 250 mL carrier bag. - Infuse 25 mL at a rate of IVPB administration to flush as needed to complete the IVPB and/or may keep rate at KVO (10mL/hr) to minimize frequent line interruption. o Dextrose 5% (D5W) 250 mL carrier bag - Infuse 25 mL at a rate of IVPB administration to flush as needed to complete the IVPB and/or may keep rate at KVO (10mL/hr) to minimize frequent line interruption. Central Lines (PICC, CVC, Implanted Port, Sheath/Introducer, 3rd lumen of Hemodialysis catheter) Flush Panel (18 yr and over) ?? Line care and maintenance o Sodium chloride 0.9% (normal saline) flush 10mL per lumen AND Heparin 10 units/mL 5mL per lumen every 12 hours ?? Sodium chloride 0.9% (normal saline) flush 10mL per lumen before and after medication administration or to verify line patency AND Heparin 10 units/mL 5 mL per lumen to lock. ?? Carrier fluid (select most appropriate fluid for capability with medications) o Sodium chloride 0.9% (normal saline) 250 mL carrier bag. - Infuse 25 mL at a rate of IVPB administration to flush as needed to complete the IVPB and/or may keep rate at KVO (10mL/hr) to minimize frequent line interruption. o Dextrose 5% (D5W) 250 mL carrier bag: carrier bag - Infuse 25 mL at a rate of IVPB administration to flush as needed to complete the IVPB and/or may keep rate at KVO (10mL/hr) to minimize frequent line interruption. Transducers- Hemodynamic Pressure Monitoring ??? Arterial Catheter, Pulmonary Artery Catheter, Central Venous Pressure, Intra-Aortic Balloon Pump Sodium chloride 0.9% (normal saline) to infuse continuously at 3mL/hr via pressure bag at 300 mmHgIntra-Aortic Balloon Pump ??? Heparin 2 unit/mL in normal saline to infuse continuously at 3 mL/hr via pressure bag at 300mmHg Adult (ONCOLOGY) ??? Alteplase (CATHFLO) Instill 2mg to affected lumen(s) to dwell in occluded lumen one time. Imitated: Nursing, Pharmacy, Physicians Reviewed: 05/2012; 10/2013; 12/2014; 01/2016; 10/2016; 11/2017 Revised: 05/2012; 12/2014; 01/2016 Approved by: Medical Executive Committee, Nursing Leadership, Pharmacy and Therapeutics Date: 11/2017 TY PHYSICIAN * Care Plan - Rossy Delgado RN - 04/11/2018 2:17 PM CST Pt resting, NPO maintained. Medicated with percoset and dilaudid per JUN. q4 BG checked. Pt up independent in room, voiding per bathroom. Vss TY PHYSICIAN * Care Plan - Karen Shook RN - 04/11/2018 5:04 AM CST Pt sleeping between care. C/o persistent LUQ pain- Margy and Dilaudid administered which pt states were effective. C/o mild nausea- Zofran administered. No emesis this shift. R chest dialysis catheterdressing CDI. D5LR infusing at 150ml/hr. Voiding per BR without difficulty. VSS. TY PHYSICIAN * Treatment Plan - Susan Green RT - 04/10/2018 11:17 AM CST IMAGING SERVICES- CT, MRI MEDICATION and FLUSH PROTOCOL [facility] ORDERS ARE ENTERED ???PER PROTOCOL?? Enter the protocol in the patient???s electronic health record using ViViFiphrase: .imagingctmriprotocol Communication Orders: o For ordered imaging procedures requiring intravenous access : ??? Initiate a peripheral IV, if not already in place, and discontinue IV prior to discharge (if outpatient). ??? Enter order if needed: Insert Peripheral IV Medication Orders: o Local Anesthetic for use to initiate IV ADULT ??? Lidocaine 4% (L.M.X.4) applied topically ONE TIME prior to IV catheter insertion PRN (L.M.X.4 %should be applied 15 minutes prior to procedure) PEDIATRIC ??? Lidocaine 4% (L.M.X.4) applied topically ONE TIME prior to IV catheter insertion PRN (apply 15 minutes prior to procedure) ??? Sucrose 24%(Tootsweet; Sweet-Ease) oral solution 0.2 mL oral (apply to tongue on pacifier or clean, gloved finger), ONE TIME 2 minutes prior to painful procedure. May repeat dose x1 PRN to complete procedure. o Sodium chloride 0.9% (normal saline) flush 10 mLs PRN for saline lock or medication administration. o For respiratory distress, initiate oxygen and/or increase O2 to maintain saturation greater than 90% PROCEDURE SPECIFIC MEDICATIONS ??? Cystogram (CT Pelvis): Iopamidol (Isovue 300) 61%, 50mL, diluted with 250mL of sterile NS. Inject Isovue into 250mL bag ofNS.. Clamp pettit catheter prior to instilling solution via catheter. o Instill up to 300mL of Isovue and NS solution into bladder via catheter, one time. CT ORAL CONTRAST PROTOCOLS FOR ADULTS ??? Use Iohexol (Omnipaque) 240 mg/mL for CT scan unless patient has a documented allergy to contrast dye. ??? If allergy present, use Barium Sulfate (EZ Paque) for procedure. ??? If at any time the Detective Chief has a question about which option to administer, seek clarification from a Radiologist. o Iohexol (Omnipaque) 240 mg/mL: 50ml added to 960mL of clear liquid of patient???s choice. Preferred route is oral. May use [...] oral. May use nasoenteric tube if needed. [place] to 3 months Administer up to 90mL of Barium Sulfate, orally, one time only 4 months to 1 year old Administer up to 240mL of Barium sulfate , Orally, One Time Only 1 year old to 5 years old Administer up to 360mL of Barium sulfate , Orally, One Time Only 5 years old to 10 years old Administer up to 480mL of Barium sulfate , Orally, One Time Only Over 10 years old Administer up to 600mL of Barium sulfate , Orally, One Time Only ??? Iohexol (Omnipaque) 240 mg/mL oral solution ??? Dilute 25mL of iohexol with 480mL of clear liquid of patient???s choice. Administer the dilutedsolution per age as follows: Preferred route is orally. May use nasoenteric tube if needed. ??? Send any remaining diluted Iohexol solution with the pateint???s nurse to CT [place] Administer 45mL of diluted Iohexol oral solution, orally every 30 minutes x 2 doses. 1 month to 1 year old Administer 120mL of diluted Iohexol oral solution, orally every 30 min x 2 doses. 1 year old to 5 years old Administer 180mL of Iohexol orally every 30 min x 2 doses. 5 years old to 10 years old Administer 240mL of Iohexol orally every 30 min x 2 doses. Over 10 years old Administer 300mL of Iohexol orally every 30 min x [address] RECTAL CONTRAST PROTOCOLS ADULTS: o Iohexol (Omnipaque) 240 mg/mL: Dilute 50mL of Omnipaque with 900mL of warm water in an enema bag.Administer the diluted solution rectally via gravity per patient???s tolerance, up to 950mLs, one time only. CT IV CONTRAST PROTOCOLS for ADULT ADULTS: (If patient is less than 55kg and confirm dose with radiologist) o Iopadmidol (Isovue-300): Administer 2.2mL/kg of Iopamidol 61%, intravenously, one time only. o See table below for maximum dose, unless otherwise authorized by radiologist.If exam has been completed before the entire dose has been administered, stop the injection. o If exam not included in table below, contact radiologist for orders. Procedure Maximum Dose CT Head with Contrast Up to [address] Chest with Contrast Up to [address] Maxilofacial with Contrast Up to [address] Soft Tissue Neck with Contrast CT Chest Abdomen Pelvis with Contrast CT Chest Abdomen with Contrast CT Abdomen Pelvis with Contrast CT Pelvis with Contrast CT Angiogram Examinations (all) CT Soft Tissue Neck and Chest Abomen Pelvis with Contrast Up to [address] Soft Tissue Neck and Chest with Contrast CT Urogram with Contrast CT IV CONTRAST PROTOCOLS for PEDIATRICS PEDIATRICS: Use weight based dosing if patient is less than 55kg and confirm dose with radiologist. to 15 years old Administer 2.2mL/kg (to MAX of 80 mL) of Iopamidol (Isovue-300) 61%, intravenously, one time only 15 years old and older Administer 2.2mL/kg (to MAX of 150mL) of Iopamidol (Isovue-300) 61%, intravenously, one time only MRI IV CONTRAST PROTOCOLS ADULTS: o Multihance and Prohance can be used for most MRI scans o For Liver studies, contact Radiologist to determine use of one of the following: o Gadobenate Dimeglumine (Multihance) (0.1mmol/0.2mL), Administer 0.1mmol/kg = 0.2mL/kg up to MAX of 30mL, intravenously, one time only o Gadoteridol (Prohance) (0.1mmol/0.2mL), Administer 0.1mmol/kg = 0.2mL/kg up to MAX of 30mL, intravenously, one time only o Gadoxetate (Eovist) 2.5 mmol/10mL, Administer 0.025mmol/kg = 0.1mL/kg MAX of 15mL, intravenously,one time only PEDIATRICS: o Radiologist to determine need and type of contrast Term neonates up to 2 years: Gadobutrol (Gadavist) 1mmol/mL injection, Administer 0.1mmol/kg = 0.1mL/kg up to MAX of 14mmol = 14mL, intravenously, one time only 2 years and older Gadobenate Dimeglumine (Multihance) (0.1mmol/0.2mL),Administer 0.1mmol/kg = 0.2mL/kg up to MAX of 20mL intravenously, one time only OR Gadoteridol (Prohance) (0.1mmol/0.2mL), Administer 0.1mmol/kg = 0.2mL/kg up to MAX of 20mL, intravenously, one time only Initiati Initi Initiating Department(s): 04/2013 Nuclear Medicine and Pharmacy Reviewed: 01/2014 ,08/2015, 08/2016; 11/2016; 04/2017; 08/2017; 11/2017 Revised: 01/2014, 05/2016, 08/2016; 11/2016; 04/2017; 08/2017; 11/2017 Approved by: Medical Executive Committee, Imaging Services, and Pharmacy & Therapeutics Committee Date: 12/2017 TY PHYSICIAN * Care Plan - Karen Shook RN - 04/10/2018 3:41 AM CST Pt sleeping between care. C/o 6/10 pain to LUQ. Morphine administered. Pt also c/o mild nausea- Zofran administered- no emesis. Ativan administered for anxiety and pt sleeping upon reassessment. 1L NS bolus administered per order. VSS. Pain, Potential/Actual ??? Verbalizes/displays acceptable comfort level or baseline comfort level Variance TY PHYSICIAN documented in this encounter Plan of Treatment Upcoming Encounters Date Type Department Care Team (Late st Contact Info) Description 09/14/2024 3:00 PM CDT Office Visit [facility] Heart and Vascular - [facility] [phone] [place] [address] Marlys Mayer MD [address] [facility] [place] [address] documented as of this encounter Procedures Procedure Name Priority Date/Time Associated Diagnosis Comments POC GLUCOSE Routine 04/14/2018 12:09 PM SAFETY PHYSICIAN POC GLUCOSE Routine 04/14/2018 9:11 AM SAFETY PHYSICIAN CBC WITH DIFFERENTIAL Routine 04/14/2018 3:51 AM SAFETY PHYSICIAN Pain of upper abdomen Hypertriglyceridemi a Pancreatitis, recurrent TRIGLYCERIDE Routine 04/14/2018 3:51 AM SAFETY PHYSICIAN BASIC METABOLIC PANEL Routine 04/14/2018 3:51 AM SAFETY PHYSICIAN POC GLUCOSE Routine 04/14/2018 2:54 AM SAFETY PHYSICIAN POC GLUCOSE Routine 04/13/2018 9:50 PM SAFETY PHYSICIAN POC GLUCOSE Routine 04/13/2018 7:15 PM SAFETY PHYSICIAN POC GLUCOSE Routine 04/13/2018 11:48 AM SAFETY PHYSICIAN POC GLUCOSE Routine 04/13/2018 9:16 AM SAFETY PHYSICIAN POC GLUCOSE Routine 04/13/2018 8:26 AM SAFETY PHYSICIAN CBC WITH DIFFERENTIAL Routine 04/13/2018 5:20 AM SAFETY PHYSICIAN Pain of upper abdomen Hypertriglyceridemi a Pancreatitis, recurrent TRIGLYCERIDE Routine 04/13/2018 5:20 AM SAFETY PHYSICIAN BASIC METABOLIC PANEL Routine 04/13/2018 5:20 AM SAFETY PHYSICIAN POC GLUCOSE Routine 04/13/2018 3:45 AM SAFETY PHYSICIAN POC GLUCOSE Routine 04/12/2018 11:40 PM SAFETY PHYSICIAN POC GLUCOSE Routine 04/12/2018 7:41 PM SAFETY PHYSICIAN POC GLUCOSE Routine 04/12/2018 4:44 PM SAFETY PHYSICIAN POC GLUCOSE Routine 04/12/2018 12:18 PM SAFETY PHYSICIAN CALCIUM IONIZED Routine 04/12/2018 12:18 PM SAFETY PHYSICIAN Hypertriglyceridemi a Epigastric pain POC GLUCOSE Routine 04/12/2018 8:14 AM SAFETY PHYSICIAN CBC WITH DIFFERENTIAL Routine 04/12/2018 6:18 AM SAFETY PHYSICIAN Pain of upper abdomen Hypertriglyceridemi a Pancreatitis, recurrent PROTIME-INR Routine 04/12/2018 6:17 AM SAFETY PHYSICIAN Pain of upper abdomen Hypertriglyceridemi a Pancreatitis, recurrent LIPID PANEL Routine 04/12/2018 6:17 AM SAFETY PHYSICIAN Pain of upper abdomen Hypertriglyceridemi a Pancreatitis, recurrent BASIC METABOLIC PANEL Routine 04/12/2018 6:17 AM SAFETY PHYSICIAN POC GLUCOSE Routine 04/12/2018 3:59 AM SAFETY PHYSICIAN POC GLUCOSE Routine 04/11/2018 11:59 PM SAFETY PHYSICIAN POC GLUCOSE Routine 04/11/2018 8:17 PM SAFETY PHYSICIAN POC GLUCOSE Routine 04/11/2018 4:58 PM SAFETY PHYSICIAN POC GLUCOSE Routine 04/11/2018 12:22 PM SAFETY PHYSICIAN VERIFICATION BLOOD GROUP Stat 04/11/2018 8:20 AM SAFETY PHYSICIAN History of gestational diabetes POC GLUCOSE Routine 04/11/2018 7:57 AM SAFETY PHYSICIAN CBC WITH DIFFERENTIAL Routine 04/11/2018 7:01 AM SAFETY PHYSICIAN Pain of upper abdomen Hypertriglyceridemi a Pancreatitis, recurrent PROTIME-INR Routine 04/11/2018 7:01 AM SAFETY PHYSICIAN LIPID PANEL Routine 04/11/2018 7:01 AM SAFETY PHYSICIAN BASIC METABOLIC PANEL Routine 04/11/2018 7:01 AM SAFETY PHYSICIAN TYPE AND SCREEN Routine 04/11/2018 6:51 AM SAFETY PHYSICIAN POC GLUCOSE Routine 04/11/2018 4:08 AM SAFETY PHYSICIAN POC GLUCOSE Routine 04/11/2018 12:15 AM SAFETY PHYSICIAN POC GLUCOSE Routine 04/10/2018 8:43 PM SAFETY PHYSICIAN POC GLUCOSE Routine 04/10/2018 5:49 PM SAFETY PHYSICIAN IR VENOUS ACCESS Routine 04/10/2018 4:22 PM SAFETY PHYSICIAN EKG 12-LEAD Routine 04/10/2018 3:29 PM SAFETY PHYSICIAN POC GLUCOSE Routine 04/10/2018 11:[address] ABDOMEN W CONTRAST Routine 04/10/2018 11:35 AM SAFETY PHYSICIAN POC GLUCOSE Routine 04/09/2018 11:58 PM SAFETY PHYSICIAN URINALYSIS W/REFLEX MICROSCOPIC Stat 04/09/2018 9:07 PM SAFETY PHYSICIAN CBC WITH DIFFERENTIAL Stat 04/09/2018 7:26 PM SAFETY PHYSICIAN TRIGLYCERIDE Stat 04/09/2018 7:26 PM SAFETY PHYSICIAN LIPASE Stat 04/09/2018 7:26 PM SAFETY PHYSICIAN COMPREHENSIVE METABOLIC PANEL Stat 04/09/2018 7:26 PM SAFETY PHYSICIAN EKG 12-LEAD Routine 04/09/2018 6:10 PM SAFETY PHYSICIAN documented in this encounter Results * (ABNORMAL) POC GLUCOSE (04/14/2018 12:09 PM SAFETY PHYSICIAN) GLUCOSE POC 145(H) 74 - 99 mg/dL 04/14/2018 12:22 PM SAFETY PHYSICIAN [facility] EPIDEMIOLOGY INTERNSHIP NAME POC MAR MARRUFO 04/14/2018 12:22 PM SAFETY PHYSICIAN [facility] Whole blood specimen (specimen) 04/14/2018 12:09 PM SAFETY PHYSICIAN 04/14/2018 12:22 PM SAFETY PHYSICIAN Richard Mead MD POINT OF CARE TEST ING [facility] [employer] [facility] [id number] [address] [place] [address] * (ABNORMAL) POC GLUCOSE (04/14/2018 9:11 AM SAFETY PHYSICIAN) GLUCOSE POC 110(H) 74 - 99 mg/dL 04/14/2018 9:45 AM SAFETY PHYSICIAN [employer] [facility] EPIDEMIOLOGY INTERNSHIP NAME POC THIAGO CARPIO 04/14/2018 9:45 AM SAFETY PHYSICIAN [employer] [facility] Whole blood specimen (specimen) 04/14/2018 9:11 AM SAFETY PHYSICIAN 04/14/2018 9:45 AM SAFETY PHYSICIAN Richard Mead MD POINT OF CARE TEST ING [employer] [facility] [id number] [address] [place] [address] * (ABNORMAL) BASIC METABOLIC PANEL (04/14/2018 3:51 AM SAFETY PHYSICIAN) SODIUM 144 136 - 145 mmol/L 04/14/2018 5:53 AM SAFETY PHYSICIAN [employer] [facility] - [facility] POTASSIUM 2.8(L) 3.5 - 5.0 mmol/L 04/14/2018 5:53 AM SAFETY PHYSICIAN [employer] [facility] - . [facility] CHLORIDE 103 98 - 107 mmol/L 04/14/2018 5:53 AM SAFETY PHYSICIAN [employer] [facility] - . [facility] CO2 29 22 - 29 mmol/L 04/14/2018 5:53 AM SAFETY PHYSICIAN [employer] [facility] - . [facility] CALCIUM 9.0 8.6 - 10.2 mg/dL 04/14/2018 5:53 AM SAFETY PHYSICIAN [employer] [facility] - . [facility] BUN <2(L) 6 - 20 mg/dL 04/14/2018 5:53 AM SAFETY PHYSICIAN [employer] [facility] - . [facility] CREATININE 0.58 0.51 - 0.95 mg/dL 04/14/2018 5:53 AM SAFETY PHYSICIAN [employer] [facility] - . [facility] GLUCOSE 97 74 - 99 mg/dL 04/14/2018 5:53 AM SAFETY PHYSICIAN [employer] [facility] - [facility] GFR >60 >=60 mL/min/1.7 3 sq meter 04/14/2018 5:53 AM [facility] [employer] [facility] Comment: eGFR has not been [...] GFR, >60 >=60 mL/min/1.7 3 sq meter 04/14/2018 5:53 AM [facility] [employer] [facility] ANION GAP 12 8 - 16 mmol/L 04/14/2018 5:53 AM [facility] [employer] [facility] Blood 04/14/2018 3:51 AM SAFETY PHYSICIAN 04/14/2018 4:59 AM SAFETY PHYSICIAN Richard Mead MD CHEMISTRY ORDERABL ES [facility] [employer] [facility]# [id number] [address] [facility] [place] [address] * (ABNORMAL) CBC WITH DIFFERENTIAL (04/14/2018 3:51 AM SAFETY PHYSICIAN) WBC 6.1 4.0 - 9.8 K/uL 04/14/2018 5:09 AM [facility] [employer] [facility] RBC 3.86(L) 3.90 - 4.90 M/uL 04/14/2018 5:09 AM [facility] [employer] [facility] HEMOGLOBIN 11.5(L) 11.8 - 14.8 g/dL 04/14/2018 5:09 AM [facility] [employer] [facility] HEMATOCRIT 35.4(L) 35.5 - 44.0 % 04/14/2018 5:09 AM [facility] [employer] [facility] MCV 91.7 82.0 - 99.0 fL 04/14/2018 5:09 AM SAFETY PHYSICIAN [facility] MCH 29.8 27.2 - 32.6 pg 04/14/2018 5:09 AM [employer] [facility] MCHC 32.5 31.5 - 35.5 g/dL 04/14/2018 5:09 AM [employer] [facility] RDW 13.6 11.5 - 14.5 % 04/14/2018 5:09 AM [employer] [facility] RDW-STDEV 46.0 37.1 - 48.7 fL 04/14/2018 5:09 AM [employer] [facility] PLATELETS 167 140 - 350 K/uL 04/14/2018 5:09 AM [employer] [facility] MPV 9.6 9.3 - 12.4 fL 04/14/2018 5:09 AM [employer] [facility] NEUTROPHILS 54 % 04/14/2018 5:09 AM [employer] [facility] LYMPHOCYTES 36 % 04/14/2018 5:09 AM [employer] [facility] MONOCYTES 8 % 04/14/2018 5:09 AM [employer] [facility] EOSINOPHILS 2 % 04/14/2018 5:09 AM [employer] [facility] BASOPHILS 0 % 04/14/2018 5:09 AM [employer] [facility] IMMATURE GRANULOCYTES 0 % 04/14/2018 5:09 AM [employer] [facility] NEUTROPHIL ABSOLUTE 3.31 1.90 - 7.00 K/uL 04/14/2018 5:09 AM [employer] [facility] LYMPHOCYTE ABSOLUTE 2.22 0.70 - 4.50 K/uL 04/14/2018 5:09 AM [employer] [facility] MONOCYTE ABSOLUTE 0.46 0.10 - 1.30 K/uL 04/14/2018 5:09 AM [employer] [facility] EOSINOPHIL ABSOLUTE 0.10 0.00 - 0.70 K/uL 04/14/2018 5:09 AM [employer] [facility] BASOPHILS ABSOLUTE 0.02 0.00 - 0.20 K/uL 04/14/2018 5:09 AM [employer] [facility] IMMATURE GRANULOCYTES ABSOLUTE 0.02 0.00 - 0.03 K/uL 04/14/2018 5:09 AM SAFETY PHYSICIAN [facility] [employer] [facility] Blood Venipuncture / Unknown 04/14/2018 3:51 AM SAFETY PHYSICIAN 04/14/2018 5:01 AM SAFETY PHYSICIAN Richard Mead MD HEMATOLOGY ORDERAB LES Performing Organization Address [place] [facility] de Phone Number [facility]# [id number] [address] [place] [address] * (ABNORMAL) TRIGLYCERIDE (04/14/2018 3:51 AM SAFETY PHYSICIAN) TRIGLYCERIDE 280(H) <150 mg/dL 04/14/2018 5:50 AM [facility] Blood 04/14/2018 3:51 AM SAFETY PHYSICIAN 04/14/2018 4:59 AM SAFETY PHYSICIAN Narrative [facility] - 04/14/2018 5:50 AM SAFETY PHYSICIAN TRIGLYCERIDES ? mg/dL Normal ?< 150 Borderline High ?150 - 199 High ? 200 - 499 Very High ? >= 500 Based on AHA/NCEP Guidelines. Richard Mead MD CHEMISTRY ORDERABL ES Performing Organization Address [facility] de Phone Number [facility]# [id number] [address] [place] [address] * (ABNORMAL) POC GLUCOSE (04/14/2018 2:54 AM SAFETY PHYSICIAN) GLUCOSE POC 111(H) 74 - 99 mg/dL 04/14/2018 3:05 AM [facility] [employer] [facility] EPIDEMIOLOGY INTERNSHIP NAME POC EFRAÍN BENITO 04/14/2018 3:05 AM [facility] [employer] [facility] Whole blood specimen (specimen) 04/14/2018 2:54 AM SAFETY PHYSICIAN 04/14/2018 3:05 AM SAFETY PHYSICIAN Richard Mead MD POINT OF CARE TEST ING Performing Organization Address City/[facility]/ZIP Co de Phone Number [facility] [employer] [facility]# [id number] [address] [place] [address] * (ABNORMAL) POC GLUCOSE (04/13/2018 9:50 PM SAFETY PHYSICIAN) GLUCOSE POC 154(H) 74 - 99 mg/dL 04/13/2018 10:03 PM SAFETY PHYSICIAN [facility] LABORATORY [facility] EPIDEMIOLOGY INTERNSHIP NAME WEN ELIZABETH 04/13/2018 10:03 PM SAFETY PHYSICIAN [facility] LABORATORY [facility] Whole blood specimen (specimen) 04/13/2018 9:50 PM SAFETY PHYSICIAN 04/13/2018 10:03 PM SAFETY PHYSICIAN Richard Mead MD POINT OF CARE TEST ING Performing Organization Address [facility] Co de Phone Number [facility] [employer] [facility]# [id number] [address] [place] [address] * (ABNORMAL) POC GLUCOSE (04/13/2018 7:15 PM SAFETY PHYSICIAN) GLUCOSE POC 101(H) 74 - 99 mg/dL 04/13/2018 7:28 PM SAFETY PHYSICIAN [facility] LABORATORY [facility] EPIDEMIOLOGY INTERNSHIP NAME POC WEN MOSS 04/13/2018 7:28 PM SAFETY PHYSICIAN [facility] LABORATORY [facility] Whole blood specimen (specimen) 04/13/2018 7:15 PM SAFETY PHYSICIAN 04/13/2018 7:28 PM SAFETY PHYSICIAN Richard Mead MD POINT OF CARE TEST ING Performing Organization Address [facility] Co de Phone Number [facility] [employer] [facility] [id number] [address] [place] [address] * (ABNORMAL) POC GLUCOSE (04/13/2018 11:48 AM SAFETY PHYSICIAN) GLUCOSE POC 116(H) 74 - 99 mg/dL 04/13/2018 12:05 PM SAFETY PHYSICIAN [facility] LABORATORY [facility] EPIDEMIOLOGY INTERNSHIP NAME POC JEFF TARIQ 04/13/2018 12:05 PM SAFETY PHYSICIAN [facility] LABORATORY [facility] Whole blood specimen (specimen) 04/13/2018 11:48 AM SAFETY PHYSICIAN 04/13/2018 12:05 PM SAFETY PHYSICIAN Richard Mead MD POINT OF CARE TEST ING Performing Organization Address [facility] Co de Phone Number [facility] CLIA# [id number] [address] [place] [address] * (ABNORMAL) POC GLUCOSE (04/13/2018 9:16 AM SAFETY PHYSICIAN) GLUCOSE POC 102(H) 74 - 99 mg/dL 04/13/2018 9:28 AM SAFETY PHYSICIAN [facility] [employer] [facility] EPIDEMIOLOGY INTERNSHIP NAME POC JOAN ERVIN 04/13/2018 9:28 AM SAFETY PHYSICIAN [facility] [employer] [facility] Whole blood specimen (specimen) 04/13/2018 9:16 AM SAFETY PHYSICIAN 04/13/2018 9:28 AM SAFETY PHYSICIAN Richard Mead MD POINT OF CARE TEST ING Performing Organization Address [facility] Co de Phone Number [facility]# [id number] [address] [place] [address] * (ABNORMAL) POC GLUCOSE (04/13/2018 8:26 AM SAFETY PHYSICIAN) GLUCOSE POC 113(H) 74 - 99 mg/dL 04/13/2018 8:47 AM SAFETY PHYSICIAN [facility] LABORATORY [facility] EPIDEMIOLOGY INTERNSHIP NAME POC JOAN ERVIN 04/13/2018 8:47 AM SAFETY PHYSICIAN [facility] LABORATORY [facility] Whole blood specimen (specimen) 04/13/2018 8:26 AM SAFETY PHYSICIAN 04/13/2018 8:47 AM SAFETY PHYSICIAN Richard Mead MD POINT OF CARE TEST ING Performing Organization Address [facility]/ZIP Co de Phone Number [facility] [employer] [facility] CLIA# [id number] [address] [place] [address] * (ABNORMAL) TRIGLYCERIDE (04/13/2018 5:20 AM SAFETY PHYSICIAN) TRIGLYCERIDE 289(H) <150 mg/dL 04/13/2018 7:52 AM [facility] [employer] [facility] Blood Venipuncture / Unknown 04/13/2018 5:20 AM SAFETY PHYSICIAN 04/13/2018 6:13 AM SAFETY PHYSICIAN [facility] [employer] [facility] - 04/13/2018 7:52 AM SAFETY PHYSICIAN TRIGLYCERIDES ? mg/dL Normal ?< 150 Borderline High ?150 - 199 High ? 200 - 499 Very High ? >= 500 Based on AHA/NCEP Guidelines. Richard Mead MD CHEMISTRY ORDERABL ES Performing Organization Address [facility] Co de Phone Number [facility] [employer] [facility] CLIA# [id number] [address] [place] [address] * (ABNORMAL) BASIC METABOLIC PANEL (04/13/2018 5:20 AM SAFETY PHYSICIAN) SODIUM 150(H) 136 - 145 mmol/L 04/13/2018 7:10 AM [facility] [employer] [facility] POTASSIUM 3.8 3.5 - 5.0 mmol/L 04/13/2018 7:10 AM [facility] CHLORIDE 107 98 - 107 mmol/L 04/13/2018 7:10 AM [facility] CO2 30(H) 22 - 29 mmol/L 04/13/2018 7:10 AM [facility] [employer] LABORATORY [facility] CALCIUM 9.4 8.6 - 10.2 mg/dL 04/13/2018 7:10 AM [facility] [employer] LABORATORY [facility] BUN 2(L) 6 - 20 mg/dL 04/13/2018 7:10 AM [facility] [employer] [facility] CREATININE 0.61 0.51 - 0.95 mg/dL 04/13/2018 7:10 AM [facility] [employer] [facility] GLUCOSE 97 74 - 99 mg/dL 04/13/2018 7:10 AM [facility] [employer] [facility] GFR >60 >=60 mL/min/1.7 3 sq meter 04/13/2018 7:10 AM [facility] [employer] [facility] Comment: eGFR has not been [...] GFR, >60 >=60 mL/min/1.7 3 sq meter 04/13/2018 7:10 AM [facility] [employer] [facility] ANION GAP 13 8 - 16 mmol/L 04/13/2018 7:10 AM [facility] [employer] [facility] Blood Venipuncture / Unknown 04/13/2018 5:20 AM SAFETY PHYSICIAN 04/13/2018 6:13 AM SAFETY PHYSICIAN Richard Mead MD CHEMISTRY ORDERABL ES [facility] [employer] [facility]# [id number] [address] [facility] [address] [address] * (ABNORMAL) CBC WITH DIFFERENTIAL (04/13/2018 5:20 AM SAFETY PHYSICIAN) WBC 6.8 4.0 - 9.8 K/uL 04/13/2018 6:24 AM [facility] [employer] [facility] RBC 3.58(L) 3.90 - 4.90 M/uL 04/13/2018 6:24 AM [facility] [employer] [facility] HEMOGLOBIN 10.8(L) 11.8 - 14.8 g/dL 04/13/2018 6:24 AM SAFETY PHYSICIAN [employer] [facility] HEMATOCRIT 32.6(L) 35.5 - 44.0 % 04/13/2018 6:24 AM SAFETY PHYSICIAN [employer] [facility] MCV 91.1 82.0 - 99.0 fL 04/13/2018 6:24 AM SAFETY PHYSICIAN [employer] [facility] MCH 30.2 27.2 - 32.6 pg 04/13/2018 6:24 AM SAFETY PHYSICIAN [employer] [facility] MCHC 33.1 31.5 - 35.5 g/dL 04/13/2018 6:24 AM SAFETY PHYSICIAN [employer] [facility] RDW 13.9 11.5 - 14.5 % 04/13/2018 6:24 AM SAFETY PHYSICIAN [employer] [facility] RDW-STDEV 46.5 37.1 - 48.7 fL 04/13/2018 6:24 AM [employer] [facility] PLATELETS 158 140 - 350 K/uL 04/13/2018 6:24 AM SAFETY PHYSICIAN [employer] [facility] MPV 9.5 9.3 - 12.4 fL 04/13/2018 6:24 AM SAFETY PHYSICIAN [employer] [facility] NEUTROPHILS 61 % 04/13/2018 6:24 AM SAFETY PHYSICIAN [employer] [facility] LYMPHOCYTES 31 % 04/13/2018 6:24 AM SAFETY PHYSICIAN [employer] [facility] MONOCYTES 7 % 04/13/2018 6:24 AM SAFETY PHYSICIAN [employer] [facility] EOSINOPHILS 2 % 04/13/2018 6:24 AM SAFETY PHYSICIAN [employer] [facility] BASOPHILS 0 % 04/13/2018 6:24 AM SAFETY PHYSICIAN [employer] [facility] IMMATURE GRANULOCYTES 0 % 04/13/2018 6:24 AM SAFETY PHYSICIAN [employer] [facility] NEUTROPHIL ABSOLUTE 4.08 1.90 - 7.00 K/uL 04/13/2018 6:24 AM SAFETY PHYSICIAN [employer] [facility] LYMPHOCYTE ABSOLUTE 2.10 0.70 - 4.50 K/uL 04/13/2018 6:24 AM SAFETY PHYSICIAN [employer] [facility] MONOCYTE ABSOLUTE 0.44 0.10 - 1.30 K/uL 04/13/2018 6:24 AM SAFETY PHYSICIAN [employer] [facility] EOSINOPHIL ABSOLUTE 0.10 0.00 - 0.70 K/uL 04/13/2018 6:24 AM SAFETY PHYSICIAN [facility] LABORATORY SERVICES - [facility] BASOPHILS ABSOLUTE 0.01 0.00 - 0.20 K/uL 04/13/2018 6:24 AM [facility] - [facility] IMMATURE GRANULOCYTES ABSOLUTE 0.02 0.00 - 0.03 K/uL 04/13/2018 6:24 AM [facility] Blood Venipuncture / Unknown 04/13/2018 5:20 AM SAFETY PHYSICIAN 04/13/2018 6:13 AM SAFETY PHYSICIAN Richard Mead MD HEMATOLOGY ORDERAB LES [facility] [employer] [facility] CLIA# [id number] [address] [place] [address] * POC GLUCOSE (04/13/2018 3:45 AM SAFETY PHYSICIAN) GLUCOSE POC 91 74 - 99 mg/dL 04/13/2018 3:57 AM SAFETY PHYSICIAN [facility] [employer] [facility] EPIDEMIOLOGY INTERNSHIP NAME POC WEN MOSS 04/13/2018 3:57 AM [facility] [employer] [facility] Whole blood specimen (specimen) 04/13/2018 3:45 AM SAFETY PHYSICIAN 04/13/2018 3:57 AM SAFETY PHYSICIAN Richard Mead MD POINT OF CARE TEST ING [id number] [address] [place] [address] * (ABNORMAL) POC GLUCOSE (04/12/2018 11:40 PM SAFETY PHYSICIAN) GLUCOSE POC 130(H) 74 - 99 mg/dL 04/12/2018 11:56 PM SAFETY PHYSICIAN [facility] LABORATORY [facility] EPIDEMIOLOGY INTERNSHIP NAME POC BEN, WEN 04/12/2018 11:56 PM SAFETY PHYSICIAN [facility] LABORATORY [facility] Whole blood specimen (specimen) 04/12/2018 11:40 PM SAFETY PHYSICIAN 04/12/2018 11:56 PM SAFETY PHYSICIAN Richard Mead MD POINT OF CARE TEST ING [facility] [employer] [facility] CLIA# [id number] [address] [place] [address] * (ABNORMAL) POC GLUCOSE (04/12/2018 7:41 PM SAFETY PHYSICIAN) GLUCOSE POC 114(H) 74 - 99 mg/dL 04/12/2018 10:15 PM SAFETY PHYSICIAN [employer] LABORATORY SERVICES - [facility] COMMENT, GLU POC Notified RN/MD 04/12/2018 10:15 PM SAFETY PHYSICIAN [facility] LABORATORY SERVICES [facility] EPIDEMIOLOGY INTERNSHIP NAME POC MEERA CORONA 04/12/2018 10:15 PM [facility]AFETY PHYSICIAN [facility] Whole blood specimen (specimen) 04/12/2018 7:41 PM SAFETY PHYSICIAN 04/12/2018 10:15 PM SAFETY PHYSICIAN Richard Mead MD POINT OF CARE TEST ING Performing Organization Address [facility]/ZIP Co de Phone Number [facility] [employer] [facility] CLIA# [id number] [address] [place] [address] * (ABNORMAL) POC GLUCOSE (04/12/2018 4:44 PM SAFETY PHYSICIAN) GLUCOSE POC 125(H) 74 - 99 mg/dL 04/12/2018 4:57 PM [facility]AFETY PHYSICIAN [facility] EPIDEMIOLOGY INTERNSHIP NAME POC DICKSON Philip 04/12/2018 4:57 PM SAFETY PHYSICIAN [facility] Whole blood specimen (specimen) 04/12/2018 4:44 PM SAFETY PHYSICIAN 04/12/2018 4:57 PM SAFETY PHYSICIAN Richard Mead MD POINT OF CARE TEST ING [facility] LABORATORY [facility] CLIA# [id number] [address] [place] [address] * (ABNORMAL) POC GLUCOSE (04/12/2018 12:18 PM SAFETY PHYSICIAN) GLUCOSE POC 143(H) 74 - 99 mg/dL 04/12/2018 12:45 PM SAFETY PHYSICIAN [facility] EPIDEMIOLOGY INTERNSHIP NAME POC DICKSON Philip 04/12/2018 12:45 PM SAFETY PHYSICIAN [facility] LABORATORY [facility] Whole blood specimen (specimen) 04/12/2018 12:18 PM SAFETY PHYSICIAN 04/12/2018 12:45 PM SAFETY PHYSICIAN Richard Meda MD POINT OF CARE TEST ING [facility] CLIA# [id number] [address] [place] [address] * (ABNORMAL) CALCIUM IONIZED (04/12/2018 12:18 PM SAFETY PHYSICIAN) PH, VENOUS 7.29(L) 7.32 - 7.43 04/12/2018 2:10 PM SAFETY PHYSICIAN [facility] CALCIUM IONIZED 4.6(L) 4.8 - 5.2 mg/dL 04/12/2018 2:10 PM [facility] Blood Collection / Unknown 04/12/2018 12:18 PM SAFETY PHYSICIAN 04/12/2018 2:03 PM SAFETY PHYSICIAN Jam Montgomery DO CHEMISTRY ORDERABLES [facility] CLIA# [id number] [address] [place] [address] * (ABNORMAL) POC GLUCOSE (04/12/2018 8:14 AM SAFETY PHYSICIAN) GLUCOSE POC 175(H) 74 - 99 mg/dL 04/12/2018 8:34 AM SAFETY PHYSICIAN [facility] LABORATORY [facility] EPIDEMIOLOGY INTERNSHIP NAME POC DICKSON Philip 04/12/2018 8:34 AM [facility] Whole blood specimen (specimen) 04/12/2018 8:14 AM SAFETY PHYSICIAN 04/12/2018 8:34 AM SAFETY PHYSICIAN Richard Mead MD POINT OF CARE TEST ING [facility] CLIA# [id number] [address] [facility] [address] * (ABNORMAL) CBC WITH DIFFERENTIAL (04/12/2018 6:18 AM SAFETY PHYSICIAN) WBC 6.0 4.0 - 9.8 K/uL 04/12/2018 6:49 AM SAFETY PHYSICIAN [facility] RBC 3.37(L) 3.90 - 4.90 M/uL 04/12/2018 6:49 AM [employer] [facility] HEMOGLOBIN 10.3(L) 11.8 - 14.8 g/dL 04/12/2018 6:49 AM [employer] [facility] HEMATOCRIT 31.0(L) 35.5 - 44.0 % 04/12/2018 6:49 AM [employer] [facility] MCV 92.0 82.0 - 99.0 fL 04/12/2018 6:49 AM [employer] [facility] MCH 30.6 27.2 - 32.6 pg 04/12/2018 6:49 AM [employer] [facility] MCHC 33.2 31.5 - 35.5 g/dL 04/12/2018 6:49 AM [employer] [facility] RDW 14.0 11.5 - 14.5 % 04/12/2018 6:49 AM [employer] [facility] RDW-STDEV 47.3 37.1 - 48.7 fL 04/12/2018 6:49 AM [employer] [facility] PLATELETS 149 140 - 350 K/uL 04/12/2018 6:49 AM [employer] [facility] MPV 9.5 9.3 - 12.4 fL 04/12/2018 6:49 AM SAFETY PHYSICIAN [facility] NEUTROPHILS 56 % 04/12/2018 6:49 AM [facility] LYMPHOCYTES 37 % 04/12/2018 6:49 AM [facility] MONOCYTES 5 % 04/12/2018 6:49 AM [facility] EOSINOPHILS 1 % 04/12/2018 6:49 AM [facility]. [facility] BASOPHILS 0 % 04/12/2018 6:49 AM [facility]. [facility] IMMATURE GRANULOCYTES 1 % 04/12/2018 6:49 AM [facility] Comment:IG (Immature Granulo cyte) count includes Metamyelocytes, Myelocytes, and Promyelocytes NEUTROPHIL ABSOLUTE 3.34 1.90 - 7.00 K/uL 04/12/2018 6:49 AM [facility]. [facility] LYMPHOCYTE ABSOLUTE 2.24 0.70 - 4.50 K/uL 04/12/2018 6:49 AM [facility] MONOCYTE ABSOLUTE 0.32 0.10 - 1.30 K/uL 04/12/2018 6:49 AM [facility] EOSINOPHIL ABSOLUTE 0.08 0.00 - 0.70 K/uL 04/12/2018 6:49 AM [facility]. [facility] BASOPHILS ABSOLUTE 0.01 0.00 - 0.20 K/uL 04/12/2018 6:49 AM [facility]. [facility] IMMATURE GRANULOCYTES ABSOLUTE 0.03 0.00 - 0.03 K/uL 04/12/2018 6:49 AM [facility] Blood Venipuncture / Unknown 04/12/2018 6:18 AM SAFETY PHYSICIAN 04/12/2018 6:39 AM [facility] Jack Arteaga MD HEMATOLOGY YONI SERRANO [facility] CLIA# [id number] [address] [facility] [address] [address] * (ABNORMAL) BASIC METABOLIC PANEL (04/12/2018 6:17 AM SAFETY PHYSICIAN) SODIUM 142 136 - 145 mmol/L 04/12/2018 9:00 AM [facility] POTASSIUM 3.6 3.5 - 5.0 mmol/L 04/12/2018 9:00 AM [facility] CHLORIDE 105 98 - 107 mmol/L 04/12/2018 9:00 AM [facility]. [facility] CO2 25 22 - 29 mmol/L 04/12/2018 9:00 AM [facility]. [facility] CALCIUM 8.5(L) 8.6 - 10.2 mg/dL 04/12/2018 9:00 AM [facility]. [facility] BUN 4(L) 6 - 20 mg/dL 04/12/2018 9:00 AM [facility] CREATININE 0.50(L) 0.51 - 0.95 mg/dL 04/12/2018 9:00 AM [facility] GLUCOSE 150(H) 74 - 99 mg/dL 04/12/2018 9:00 AM [facility] GFR >60 >=60 mL/min/1.7 3 sq meter 04/12/2018 9:00 AM [facility] Comment: eGFR has not been [...] GFR, >60 >=60 mL/min/1.7 3 sq meter 04/12/2018 9:00 AM [facility] ANION GAP 12 8 - 16 mmol/L 04/12/2018 9:00 AM [facility] [employer] [facility] Blood Venipuncture / Unknown 04/12/2018 6:17 AM SAFETY PHYSICIAN 04/12/2018 6:38 AM SAFETY PHYSICIAN Richard Mead MD CHEMISTRY ORDERABL ES Performing Organization Address [facility]/ZIP Co de Phone Number [facility]# [id number] [address] [place] [address] * PROTIME-INR (04/12/2018 6:17 AM SAFETY PHYSICIAN) PROTIME 13.8 12.7 - 15.1 Seconds 04/12/2018 7:02 AM [facility] [employer] [facility] INR 1.1 0.9 - 1.1 04/12/2018 7:02 AM [facility] [employer] [facility] Blood Venipuncture / Unknown 04/12/2018 6:17 AM SAFETY PHYSICIAN 04/12/2018 6:39 AM SAFETY PHYSICIAN Narrative [facility] [employer] [facility] - 04/12/2018 7:02 AM SAFETY PHYSICIAN INR Therapeutic Range: Adult: ?? 2.0 - 3.0 for pulmonary embolism or prophylaxis against venous ?thrombosis or systemic embolization. 2.0 - 3.0 for patients with tissue heart valves. 2.5 - 3.5 for patients with mechanical heart valves or post MD. Pediatric ??(12 years and under): 1.5 - 3.0 Although the target range in children is not well established, ?INR values of 1.5 - 3.0 are recommended for most patients. ?Higher values have been used in children with prosthetic ?cardiac valves and hereditary clotting disorders. (<3 days) therapeutic ranges have not been established. Jack Arteaga MD HEMATOLOGY YONI SERRANO [facility]# [id number] [address] [place] [address] * (ABNORMAL) LIPID PANEL (04/12/2018 6:17 AM SAFETY PHYSICIAN) CHOLESTEROL 158 <200 mg/dL 04/12/2018 7:22 AM [facility] [employer] [facility] TRIGLYCERIDE 567(H) <150 mg/dL 04/12/2018 7:22 AM [facility] HDL 16(L) 40 - 59 mg/dL 04/12/2018 7:22 AM [facility] LDL CALCULATED <100 mg/dL 04/12/2018 7:22 AM [facility] Comment:Calculated LDL is no t accurate when the Triglyceride value exceeds 400. NON-HDL CHOLESTEROL 142(H) <130 mg/dL 04/12/2018 7:22 AM [facility] Blood Venipuncture / Unknown 04/12/2018 6:17 AM [facility] 04/12/2018 6:38 AM [facility] - 04/12/2018 7:22 AM SAFETY PHYSICIAN TOTAL CHOLESTEROL ??mg/dL ??Desirable <200 ??Borderline high [...] Guidelines Reference Ranges for Lipid Panels (NCEP/AMA) Jack Arteaga MD CHEMISTRY ORDER [facility]# [id number] [address] [facility] [place] [id number] * (ABNORMAL) POC GLUCOSE (04/12/2018 3:59 AM SAFETY PHYSICIAN) GLUCOSE POC 154(H) 74 - 99 mg/dL 04/12/2018 4:21 AM [facility] [employer] [facility] COMMENT, GLU POC Notified RN/MD 04/12/2018 4:21 AM SAFETY PHYSICIAN [facility] EPIDEMIOLOGY INTERNSHIP NAME [facility] MEERA [place] 04/12/2018 4:21 AM SAFETY PHYSICIAN [facility] Whole blood specimen (specimen) 04/12/2018 3:59 AM SAFETY PHYSICIAN 04/12/2018 4:21 AM SAFETY PHYSICIAN Richard Mead MD POINT OF CARE TEST ING Performing Organization Address [facility] Co de Phone Number [facility] [employer] [facility] CLIA# [id number] [address] [place] [address] * (ABNORMAL) POC GLUCOSE (04/11/2018 11:59 PM SAFETY PHYSICIAN) GLUCOSE POC 122(H) 74 - 99 mg/dL 04/12/2018 12:27 AM SAFETY PHYSICIAN [facility] COMMENT, GLU POC Notified RN/ 04/12/2018 12:27 AM [facility] EPIDEMIOLOGY INTERNSHIP NAME [facility] MEERA [place] 04/12/2018 12:27 AM [facility]YS[facility] Whole blood specimen (specimen) 04/11/2018 11:59 PM SAFETY PHYSICIAN 04/12/2018 12:27 AM SAFETY PHYSICIAN Richard Mead MD POINT OF CARE TEST ING Performing Organization Address [facility] Co de Phone Number [facility] [employer] [facility] CLIA# [id number] [address] [place] [address] * (ABNORMAL) POC GLUCOSE (04/11/2018 8:17 PM SAFETY PHYSICIAN) GLUCOSE POC 146(H) 74 - 99 mg/dL 04/11/2018 8:41 PM SAFETY PHYSICIAN [facility]OR[facility] COMMENT, GLU POC Notified RN/MD 04/11/2018 8:41 PM [facility] [facility] LABORATORY [facility] EPIDEMIOLOGY INTERNSHIP NAME [facility] MEERA CORONA 04/11/2018 8:41 PM SAFETY PHYSICIAN [facility] Whole blood specimen (specimen) 04/11/2018 8:17 PM SAFETY PHYSICIAN 04/11/2018 8:41 PM SAFETY PHYSICIAN Richard Mead MD POINT OF CARE TEST ING Performing Organization Address City/[facility]/ZIP Co de Phone Number [facility] [employer] [facility] CLIA# [id number] [address] [place] [address] * (ABNORMAL) POC GLUCOSE (04/11/2018 4:58 PM SAFETY PHYSICIAN) GLUCOSE POC 149(H) 74 - 99 mg/dL 04/11/2018 5:10 PM SAFETY PHYSICIAN [facility] EPIDEMIOLOGY INTERNSHIP NAME POC TARA TERRAZAS 04/11/2018 5:10 PM SAFETY PHYSICIAN [facility] Whole blood specimen (specimen) 04/11/2018 4:58 PM SAFETY PHYSICIAN 04/11/2018 5:10 PM SAFETY PHYSICIAN Richard Mead MD POINT OF CARE TEST ING Performing Organization Address [facility] Co de Phone Number [facility] [employer] [facility] CLIA# [id number] [address] [place] [address] * (ABNORMAL) POC GLUCOSE (04/11/2018 12:22 PM SAFETY PHYSICIAN) GLUCOSE POC 151(H) 74 - 99 mg/dL 04/11/2018 12:34 PM SAFETY PHYSICIAN [facility] LABORATORY [facility] EPIDEMIOLOGY INTERNSHIP NAME POC LESA RODRIGUEZ 04/11/2018 12:34 PM SAFETY PHYSICIAN [facility] Whole blood specimen (specimen) 04/11/2018 12:22 PM SAFETY PHYSICIAN 04/11/2018 12:34 PM SAFETY PHYSICIAN Richard Mead MD POINT OF CARE TEST ING Performing Organization Address [facility]/ZIP Co de Phone Number [facility] [employer] [facility] CLIA# [id number] [address] [place] [address] * VERIFICATION BLOOD GROUP (04/11/2018 8:20 AM SAFETY PHYSICIAN) ABO GROUP B 04/11/2018 9:11 AM [facility] [employer] LABORATORY SERVICES -- [facility] RH (D) TYPE Positive 04/11/2018 9:11 AM [facility] [employer] LABORATORY SERVICES -- [facility] Blood Collection / Unknown 04/11/2018 8:20 AM SAFETY PHYSICIAN 04/11/2018 8:28 AM SAFETY PHYSICIAN Jack Arteaga MD BLOOD BANK YONI SERRANO Performing Organization Address City/[facility]/ZIP Co de Phone Number [employer] [facility] -- [facility] CLIA# [id number] [address] [place] [address] * (ABNORMAL) POC GLUCOSE (04/11/2018 7:57 AM SAFETY PHYSICIAN) Pathologist [facility] GLUCOSE POC 162(H) 74 - 99 mg/dL 04/11/2018 8:12 AM [facility] [employer] LABORATORY SERVICES - [facility] EPIDEMIOLOGY INTERNSHIP NAME POC DANIELLE RODRIGUEZSHAWNEE 04/11/2018 8:12 AM SAFETY PHYSICIAN [employer] [facility] - [facility] Whole blood specimen (specimen) 04/11/2018 7:57 AM SAFETY PHYSICIAN 04/11/2018 8:12 AM SAFETY PHYSICIAN Richard Mead MD POINT OF CARE TEST ING Performing Organization Address [facility] Co de Phone Number [facility] [employer] SERVICES - [facility]# [id number] [address] [place] [address] * (ABNORMAL) BASIC METABOLIC PANEL (04/11/2018 7:01 AM SAFETY PHYSICIAN) SODIUM 136 136 - 145 mmol/L 04/11/2018 8:08 AM SAFETY PHYSICIAN [employer] LABORATORY SERVICES - [facility] POTASSIUM 3.6 3.5 - 5.0 mmol/L 04/11/2018 8:08 AM [facility] [employer] LABORATORY SERVICES - . [facility] CHLORIDE 101 98 - 107 mmol/L 04/11/2018 8:08 AM SAFETY PHYSICIAN [employer] LABORATORY SERVICES - . [facility] CO2 24 22 - 29 mmol/L 04/11/2018 8:08 AM SAFETY PHYSICIAN [employer] LABORATORY SERVICES - . [facility] CALCIUM 8.5(L) 8.6 - 10.2 mg/dL 04/11/2018 8:08 AM [facility]ORATORY [facility] BUN 8 6 - 20 mg/dL 04/11/2018 8:08 AM [facility] CREATININE 0.61 0.51 - 0.95 mg/dL 04/11/2018 8:08 AM [facility] GLUCOSE 162(H) 74 - 99 mg/dL 04/11/2018 8:08 AM [facility] GFR >60 >=60 mL/min/1.7 3 sq meter 04/11/2018 8:08 AM [facility] [employer] [facility] Comment: eGFR has not been [...] GFR, >60 >=60 mL/min/1.7 3 sq meter 04/11/2018 8:08 AM [facility] [employer] [facility] ANION GAP 11 8 - 16 mmol/L 04/11/2018 8:08 AM [facility] [employer] [facility] Blood Venipuncture / Unknown 04/11/2018 7:01 AM SAFETY PHYSICIAN 04/11/2018 7:21 AM SAFETY PHYSICIAN Richard Mead MD CHEMISTRY ORDERABL ES [id number] [address] [place] [address] * (ABNORMAL) CBC WITH DIFFERENTIAL (04/11/2018 7:01 AM SAFETY PHYSICIAN) WBC 7.1 4.0 - 9.8 K/uL 04/11/2018 7:27 AM [facility]AT[facility] SERVICES [facility] RBC 3.70(L) 3.90 - 4.90 M/uL 04/11/2018 7:27 AM [facility] [employer] LABORATORY SERVICES - [facility] HEMOGLOBIN 11.0(L) 11.8 - 14.8 g/dL 04/11/2018 7:27 AM [facility] HEMATOCRIT 34.7(L) 35.5 - 44.0 % 04/11/2018 7:27 AM [facility] [employer] LABORATORY SERVICES - [facility] MCV 93.8 82.0 - 99.0 fL 04/11/2018 7:27 AM [facility] [employer] LABORATORY SERVICES - [facility] MCH 29.7 27.2 - 32.6 pg 04/11/2018 7:27 AM [facility] [employer] LABORATORY SERVICES - [facility] MCHC 31.7 31.5 - 35.5 g/dL 04/11/2018 7:27 AM [facility] [employer] LABORATORY SERVICES - [facility] RDW 14.4 11.5 - 14.5 % 04/11/2018 7:27 AM [facility] [employer] LABORATORY SERVICES - [facility] RDW-STDEV 49.6(H) 37.1 - 48.7 fL 04/11/2018 7:27 AM SAFETY PHYSICIAN [employer] [facility]ORAT[facility] SERVICES - [facility] PLATELETS 183 140 - 350 K/uL 04/11/2018 7:27 AM [facility] [employer] LABORATORY SERVICES - [facility] MPV 9.0(L) 9.3 - 12.4 fL 04/11/2018 7:27 AM [facility] [employer] [facility]ORATORY SERVICES - [facility] NEUTROPHILS 59 % 04/11/2018 7:27 AM SAFETY PHYSICIAN [employer] LABORATORY SERVICES - [facility] LYMPHOCYTES 33 % 04/11/2018 7:27 AM [employer] LABORATORY SERVICES - [facility] MONOCYTES 6 % 04/11/2018 7:27 AM [employer] LABORATORY SERVICES - [facility] EOSINOPHILS 1 % 04/11/2018 7:27 AM [employer] LABORATORY SERVICES - [facility] BASOPHILS 0 % 04/11/2018 7:27 AM SAFETY PHYSICIAN [employer] [facility]ORATORY SERVICES - [facility] IMMATURE GRANULOCYTES 1 % 04/11/2018 7:27 AM SAFETY PHYSICIAN [employer] [facility] - [facility] Comment:IG (Immature Granulo cyte) count includes Metamyelocytes, Myelocytes, and Promyelocytes NEUTROPHIL ABSOLUTE 4.18 1.90 - 7.00 K/uL 04/11/2018 7:27 AM [facility] LYMPHOCYTE ABSOLUTE 2.35 0.70 - 4.50 K/uL 04/11/2018 7:27 AM [facility] MONOCYTE ABSOLUTE 0.43 0.10 - 1.30 K/uL 04/11/2018 7:27 AM [facility] EOSINOPHIL ABSOLUTE 0.05 0.00 - 0.70 K/uL 04/11/2018 7:27 AM [facility] BASOPHILS ABSOLUTE 0.03 0.00 - 0.20 K/uL 04/11/2018 7:27 AM [facility] IMMATURE GRANULOCYTES ABSOLUTE 0.04(H) 0.00 - 0.03 K/uL 04/11/2018 7:27 AM [facility] Blood Venipuncture / Unknown 04/11/2018 7:01 AM SAFETY PHYSICIAN 04/11/2018 7:21 AM [facility] Jack Arteaga MD HEMATOLOGY [place] [facility]# [id number] [address] [place] [place] [address] * (ABNORMAL) LIPID PANEL (04/11/2018 7:01 AM SAFETY PHYSICIAN) CHOLESTEROL 388(H) <200 mg/dL 04/11/2018 8:10 AM [facility] TRIGLYCERIDE 1,490(H) <150 mg/dL 04/11/2018 8:10 AM [facility] HDL 40 - 59 mg/dL 04/11/2018 8:10 AM [facility] Comment: Measured HDL is not accurate when the Triglyceride value exceeds 1200. LDL CALCULATED <100 mg/dL 04/11/2018 8:10 AM [facility] Comment:Calculated LDL is no t accurate when the Triglyceride value exceeds 400. NON-HDL CHOLESTEROL <130 mg/dL 04/11/2018 8:10 AM [facility] Comment:Non HDL Cholesterol cannot be calculated when the HDL value is suppressed. Blood Venipuncture / Unknown 04/11/2018 7:01 AM SAFETY PHYSICIAN 04/11/2018 7:21 AM SAFETY PHYSICIAN Narrative [facility] - 04/11/2018 8:10 AM SAFETY PHYSICIAN TOTAL CHOLESTEROL ??mg/dL ??Desirable <200 ??Borderline high [...] Guidelines Reference Ranges for Lipid Panels (NCEP/AMA) Richard Mead MD CHEMISTRY ORDERABL ES [facility]# [id number] [address] [place] [address] * PROTIME-INR (04/11/2018 7:01 AM SAFETY PHYSICIAN) PROTIME 13.0 12.7 - 15.1 Seconds 04/11/2018 7:36 AM [facility] INR 1.0 0.9 - 1.1 04/11/2018 7:36 AM [facility] Blood Venipuncture / Unknown 04/11/2018 7:01 AM SAFETY PHYSICIAN 04/11/2018 7:21 AM SAFETY PHYSICIAN Narrative [facility] - 04/11/2018 7:36 AM SAFETY PHYSICIAN INR Therapeutic Range: Adult: ?? 2.0 - 3.0 for pulmonary embolism or prophylaxis against venous ?thrombosis or systemic embolization. 2.0 - 3.0 for patients with tissue heart valves. 2.5 - 3.5 for patients with mechanical heart valves or post MD. Pediatric ??(12 years and under): 1.5 - 3.0 Although the target range in children is not well established, ?INR values of 1.5 - 3.0 are recommended for most patients. ?Higher values have been used in children with prosthetic ?cardiac valves and hereditary clotting disorders. [place] (<3 days) therapeutic ranges have not been established. Richard Mead MD HEMATOLOGY ORDERAB LES Performing Organization Address [facility] Co de Phone Number [employer] [facility]# [id number] [address] [place] [address] * TYPE AND SCREEN (04/11/2018 6:51 AM SAFETY PHYSICIAN) Pathologist [facility] ABO GROUP B 04/11/2018 8:23 AM [facility] [employer] LABORATORY SERVICES -- [facility] RH (D) TYPE Positive 04/11/2018 8:23 AM SAFETY PHYSICIAN [employer] [facility] -- [facility] ANTIBODY SCREEN Negative 04/11/2018 8:23 AM [employer] SERVICES -- [facility] Blood Venipuncture / Unknown 04/11/2018 6:51 AM SAFETY PHYSICIAN 04/11/2018 7:20 AM SAFETY PHYSICIAN Richard Mead MD BLOOD BANK ORDERAB LES Performing Organization Address [facility] Co de Phone Number [employer] [facility]# [id number] [address] [address] * (ABNORMAL) POC GLUCOSE (04/11/2018 4:08 AM SAFETY PHYSICIAN) GLUCOSE POC 163(H) 74 - 99 mg/dL 04/11/2018 4:22 AM SAFETY PHYSICIAN [employer] LABORATORY SERVICES [facility] COMMENT, GLU POC Notified RN/MD 04/11/2018 4:22 AM SAFETY PHYSICIAN [employer] LABORATORY SERVICES - [facility] EPIDEMIOLOGY INTERNSHIP NAME POC JACK HENRIQUEZ 04/11/2018 4:22 AM SAFETY PHYSICIAN [facility] Whole blood specimen (specimen) 04/11/2018 4:08 AM SAFETY PHYSICIAN 04/11/2018 4:22 AM SAFETY PHYSICIAN Richard Mead MD POINT OF CARE TEST ING [facility] [employer] [facility] CLIA# [id number] [address] [place] [address] * (ABNORMAL) POC GLUCOSE (04/11/2018 12:15 AM SAFETY PHYSICIAN) GLUCOSE POC 157(H) 74 - 99 mg/dL 04/11/2018 12:34 AM SAFETY PHYSICIAN [facility] LABORATORY SERVICES [facility] COMMENT, GLU POC Notified RN/MD 04/11/2018 12:34 AM SAFETY PHYSICIAN [facility] LABORATORY SERVICES [facility] EPIDEMIOLOGY INTERNSHIP NAME POC JACK HENRIQUEZ 04/11/2018 12:34 AM SAFETY PHYSICIAN [facility] LABORATORY SERVICES [facility] Whole blood specimen (specimen) 04/11/2018 12:15 AM SAFETY PHYSICIAN 04/11/2018 12:34 AM SAFETY PHYSICIAN Richard Mead MD POINT OF CARE TEST ING Performing Organization Address [facility]/ZIP Co de Phone Number [facility] [employer] [facility] CLIA# [id number] [address] [place] [address] * (ABNORMAL) POC GLUCOSE (04/10/2018 8:43 PM SAFETY PHYSICIAN) GLUCOSE POC 152(H) 74 - 99 mg/dL 04/10/2018 8:59 PM SAFETY PHYSICIAN [employer] LABORATORY SERVICES [facility] EPIDEMIOLOGY INTERNSHIP NAME POC KAREN SHOOK 04/10/2018 8:59 PM SAFETY PHYSICIAN [employer] LABORATORY SERVICES [facility] Whole blood specimen (specimen) 04/10/2018 8:43 PM SAFETY PHYSICIAN 04/10/2018 8:59 PM SAFETY PHYSICIAN Richard Mead MD POINT OF CARE TEST ING [facility] LABORATORY [facility] CLIA# [id number] [address] [place] [address] * (ABNORMAL) POC GLUCOSE (04/10/2018 5:49 PM SAFETY PHYSICIAN) GLUCOSE POC 121(H) 74 - 99 mg/dL 04/10/2018 6:02 PM SAFETY PHYSICIAN [facility] LABORATORY [facility] EPIDEMIOLOGY INTERNSHIP NAME POC FRANCESCA MENG 04/10/2018 6:02 PM SAFETY PHYSICIAN [facility] LABORATORY [facility] Whole blood specimen (specimen) 04/10/2018 5:49 PM SAFETY PHYSICIAN 04/10/2018 6:02 PM SAFETY PHYSICIAN Richard Mead MD POINT OF CARE TEST ING Performing Organization Address City/State/[facility] Co de Phone Number [facility]# [id number] [address] [place] [address] * IR VENOUS ACCESS (04/10/2018 4:22 PM SAFETY PHYSICIAN) Anatomical Region Laterality Modality X-Ray Angiograph y 04/10/2018 3:50 PM SAFETY PHYSICIAN Impressions 04/10/2018 4:30 PM SAFETY PHYSICIAN IMPRESSION: Successful tunneled dialysis/pheresis catheter placement. PLAN: The tunneled dialysis/pheresis catheter is ready to use. LOCATION: This examination/procedure and interpretation was performed by Kayla Sheffield MD at ??[facility]. Narrative 04/10/2018 4:30 PM SAFETY PHYSICIAN PROCEDURE/EXAM(S): ULTRASOUND/FLUOROSCOPY GUIDED TUNNELED DIALYSIS/PHERESIS CATHETER PLACEMENT TIME/DATE: 04/10/2018 3:50 PM. PHYSICIANS/LOCATION:Kayla Sheffield MD at [facility]. CLINICAL INFORMATION/INDICATION: Female of 42 years age with hypertriglyceridemia requires pheresis access. CONSENT: The indications, procedures, benefits, and risks [...] for all aspects of the procedure. The central veins were evaluated by ultrasound and image(s) were recorded into the medical record. The subcutaneous tissues were infiltrated with local anesthetic and the right internal jugular vein was accessed with a needle using realtime ultrasound guidance. A guidewire and transitional dilator were passed centrally using fluoroscopic guidance. The intravascular length from the access site to the right atrium was measured. The subcutaneous tissues were infiltrated with local anesthetic and a short transverse incision was made in the right chest wall. After up-sizing the guidewire, the 23 cm dual lumen tunneled dialysis catheter was tunneled to the venous access site and inserted through a peel-away sheath. The catheter was packed with heparin-lock solution after confirming appropriate function. The tissues at the incision sites were sealed with Dermabond. At the end of the procedure, a sterile dressing was applied. The patient tolerated the procedure well. MEDICATIONS/DRUGS: Antibiotic prophylaxis as detailed in the medical record. FLUOROSCOPIC EXPOSURE TIME: 0.1 minutes. ?? ESTIMATED BLOOD LOSS: Minimal. ?? COMPLICATIONS: None. ?? FINDINGS: Ultrasound image(s) show a patent right internal jugular vein. ??The fluoroscopic image(s) show a well tunneled central venous catheter with its tip in the right atrium. ?? Procedure Note Kayla Sheffield MD - 04/10/2018 PROCEDURE/EXAM(S): ULTRASOUND/FLUOROSCOPY GUIDED TUNNELED DIALYSIS/PHERESIS CATHETER PLACEMENT TIME/DATE: 04/10/2018 3:50 PM. PHYSICIANS/LOCATION:Kayla Sheffield MD at [facility]. CLINICAL INFORMATION/INDICATION: Female of 42 years age with hypertriglyceridemia requires pheresis access. CONSENT: The indications, procedures, benefits, and risks [...] for all aspects of the procedure. The central veins were evaluated by ultrasound and image(s) were recorded into the medical record. The subcutaneous tissues were infiltrated with local anesthetic and the right internal jugular vein was accessed with a needle using realtime ultrasound guidance. A guidewire and transitional dilator were passed centrally using fluoroscopic guidance. The intravascular length from the access site to the right atrium was measured. The subcutaneous tissues were infiltrated with local anesthetic and a short transverse incision was made in the right chest wall. After up-sizing the guidewire, the 23 cm dual lumen tunneled dialysis catheter was tunneled to the venous access site and inserted through a peel-away sheath. The catheter was packed with heparin-lock solution after confirming appropriate function. The tissues at the incision sites were sealed with Dermabond. At the end of the procedure, a sterile dressing was applied. The patient tolerated the procedure well. MEDICATIONS/DRUGS: Antibiotic prophylaxis as detailed in the medical record. FLUOROSCOPIC EXPOSURE TIME: 0.1 minutes. ESTIMATED BLOOD LOSS: Minimal. COMPLICATIONS: None. FINDINGS: Ultrasound image(s) show a patent right internal jugular vein. The fluoroscopic image(s) show a well tunneled central venous catheter with its tip in the right atrium. IMPRESSION: Successful tunneled dialysis/pheresis catheter placement. PLAN: The tunneled dialysis/pheresis catheter is ready to use. LOCATION: This examination/procedure and interpretation was performed by Kayla Sheffield MD at [facility]. Kayla Sheffield MD IR ORDERABLES * EKG 12-LEAD (04/10/2018 3:29 PM SAFETY PHYSICIAN) 04/10/2018 3:29 PM SAFETY PHYSICIAN Narrative INTERFACE SYSTEM - 04/10/2018 6:51 PM SAFETY PHYSICIAN ? Stationary ECG Study ? [facility] ? Test Date: ?04/10/2018 3:29 PM Pat Name: ? CASANDRA CRAFTSERGIO ?Department: ?? 45 ?Room: ? 7380 1 Gender: ? F ?Molder Operator: ?? [email or web address] : ?1975 ? Requested By: YADIRA HUFF DANIELLE Order Number: [id number] ?Reading MD: ?? Gigi Maza ? Measurements Intervals ?[place] ? Rate: ? 74 ? P: ?65 WI: ? 154 ?QRS: ?75 QRSD: ? 93 ? T: ?-4 QT: ? 390 ? QTc: ?433 ? Interpretive Statements ? Sinus rhythm Low voltage, precordial leads Borderline T abnormalities, diffuse leads Electronically Signed On 04-10-2018 18:51:59 SAFETY PHYSICIAN by Gigi Maza Procedure Note Gigi Maza MD - 07/03/2021 Stationary ECG Study [facility] Test Date: 04/10/2018 3:29 PM Pat Name: CASANDRA DOSS Department: 45 Room: [facility] 1 Gender: F Molder Operator: sb : 1975 Requested By: YADIRA SANTOS Order Number: [id number] Reading MD: Gigi Maza Measurements Intervals [place] Rate: 74 P: 65 WI: 154 QRS: 75 QRSD: 93 T: -4 QT: 390 QTc: 433 Interpretive Statements Sinus rhythm Low voltage, precordial leads Borderline T abnormalities, diffuse leads Electronically Signed On 04-10-2018 18:51:59 SAFETY PHYSICIAN by Gigi Maza Yadira Huff MD ECG ORDERABLES INTERFACE SYSTEM Refer to clinic/hospital department * (ABNORMAL) POC GLUCOSE (04/10/2018 11:53 AM SAFETY PHYSICIAN) GLUCOSE POC 121(H) 74 - 99 mg/dL 04/10/2018 12:13 PM SAFETY PHYSICIAN [facility] EPIDEMIOLOGY INTERNSHIP NAME POC INGRIS CHAMBERS 04/10/2018 12:13 PM SAFETY PHYSICIAN [facility] Whole blood specimen (specimen) 04/10/2018 11:53 AM SAFETY PHYSICIAN 04/10/2018 12:13 PM SAFETY PHYSICIAN Richard Mead MD POINT OF CARE TEST ING [facility] CLIA# [id number] [address] [place] [address] * CT ABDOMEN W CONTRAST (04/10/2018 11:35 AM SAFETY PHYSICIAN) Anatomical Region Laterality Modality Abdomen Computed Tomogra phy 04/10/2018 11:3 9 AM SAFETY PHYSICIAN Impressions 04/10/2018 1:27 PM SAFETY PHYSICIAN IMPRESSION: ?? Mild stringy infiltration of the fat surrounding the pancreatic tail with a very mild amount of fluid in the adjacent abdomen. In the appropriate clinical setting this can be seen with acute pancreatitis. Correlation with laboratory values is suggested. Hepatic steatosis. 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 The examination was performed with the adjustment of mA according to the patient size and/or the use of Iterative 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 DICTATION LOCATION: Location 1 [facility] 04/10/2018 1:[address] OF THE ABDOMEN WITH INTRAVENOUS CONTRAST DATE: ??04/10/2018 11:35 AM HISTORY: ?? Pain of upper abdomen; Hypertriglyceridemia COMPARISON: ??03/07/2018 TECHNIQUE: ??Spiral volumetric acquisition of the abdomen was performed with intravenous contrast. Gastrointestinal contrast was not utilized. CONTRAST: Iopamidol 61% intravenous solution Given:120 mL FINDINGS: ??Images of the lung bases demonstrate mild posterobasilar infiltrate or atelectasis. Images of the abdomen demonstrate diffuse low-attenuation of the liver consistent with fatty infiltration. No focal hepatic or splenic lesions are seen. Mild diffuse prominence of the left adrenal gland is noted without a discrete adrenal nodule. The gallbladder is present. No biliary dilatation is seen. The pancreas is unremarkable in appearance. Minimal stringy infiltration of the fat adjacent to the pancreatic tail is noted with trace fluid extending along Gerota's fascia on the left and within the paracolic gutter. In the appropriate clinical setting this can be seen with pancreatitis. The kidneys are functioning bilaterally without evidence of hydronephrosis. Again noted is partial duplication of the left renal collecting system. No adenopathy or ascites is present. Scattered atherosclerotic vascular calcification is noted. Diverticulosis of the colon is present without evidence of diverticulitis. Procedure Note Amber Sullivan MD - 04/10/2018 CT OF THE ABDOMEN WITH INTRAVENOUS CONTRAST DATE: 04/10/2018 11:35 AM HISTORY: Pain of upper abdomen; Hypertriglyceridemia COMPARISON: 03/07/2018 TECHNIQUE: Spiral volumetric acquisition of the abdomen was performed with intravenous contrast. Gastrointestinal contrast was not utilized. CONTRAST: Iopamidol 61% intravenous solution Given:120 mL FINDINGS: Images of the lung bases demonstrate mild posterobasilar infiltrate or atelectasis. Images of the abdomen demonstrate diffuse low-attenuation of the liver consistent with fatty infiltration. No focal hepatic or splenic lesions are seen. Mild diffuse prominence of the left adrenal gland is noted without a discrete adrenal nodule. The gallbladder is present. No biliary dilatation is seen. The pancreas is unremarkable in appearance. Minimal stringy infiltration of the fat adjacent to the pancreatic tail is noted with trace fluid extending along Gerota's fascia on the left and within the paracolic gutter. In the appropriate clinical setting this can be seen with pancreatitis. The kidneys are functioning bilaterally without evidence of hydronephrosis. Again noted is partial duplication of the left renal collecting system. No adenopathy or ascites is present. Scattered atherosclerotic vascular calcification is noted. Diverticulosis of the colon is present without evidence of diverticulitis. IMPRESSION: Mild stringy infiltration of the fat surrounding the pancreatic tail with a very mild amount of fluid in the adjacent abdomen. In the appropriate clinical setting this can be seen with acute pancreatitis. Correlation with laboratory values is suggested. Hepatic steatosis. 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 The examination was performed with the adjustment of mA according to the patient size and/or the use of Iterative 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 DICTATION LOCATION: Location 1 - [facility] Richard Mead MD CT ORDERABLES * (ABNORMAL) POC GLUCOSE (04/09/2018 11:58 PM SAFETY PHYSICIAN) GLUCOSE POC 147(H) 74 - 99 mg/dL 04/10/2018 12:10 AM [facility] [employer] [facility] EPIDEMIOLOGY INTERNSHIP NAME POC JACK HENRIQUEZ 04/10/2018 12:10 AM [facility] Whole blood specimen (specimen) 04/09/2018 11:58 PM SAFETY PHYSICIAN 04/10/2018 12:10 AM SAFETY PHYSICIAN Maco Duque MD POINT OF CARE TESTI NG [facility]# [id number] [address] [place] [address] * (ABNORMAL) URINALYSIS WITH REFLEX MICROSCOPIC (04/09/2018 9:07 PM SAFETY PHYSICIAN) COLOR UA Yellow Pale to Dark Yellow 04/09/2018 9:32 PM SAFETY PHYSICIAN [facility] CLARITY UA Clear Clear 04/09/2018 9:32 PM [facility] [employer] [facility] SPECIFIC GRAVITY UA 1.020 1.003 - 1.035 04/09/2018 9:32 PM [facility] [employer] [facility] PH UA 5.0 5.0 - 8.0 04/09/2018 9:32 PM [facility] [employer] [facility] LEUKOCYTE ESTERASE UA Negative Negative 04/09/2018 9:32 PM [facility] [employer] [facility] NITRITE UA Negative Negative 04/09/2018 9:32 PM [facility] [employer] [facility] PROTEIN UA Negative Negative 04/09/2018 9:32 PM [facility] [employer] [facility] GLUCOSE UA 3+(A) Negative 04/09/2018 9:32 PM [facility] [employer] [facility] KETONES UA Trace(A) Negative 04/09/2018 9:32 PM [facility] [employer] [facility] UROBILINOGEN UA Normal <2.0 mg/dL 8 9:32 PM [facility] [employer] [facility] BILIRUBIN UA Negative Negative 04/09/2018 9:32 PM [facility] [employer] [facility] BLOOD UA Negative Negative 04/09/2018 9:32 PM [facility] [employer] [facility] Urine URINE SPECIMEN OBTAINED BY CLEAN CATCH PROCEDURE / Unknown Collection / Unknown 04/09/2018 9:07 PM SAFETY PHYSICIAN 04/09/2018 9:07 PM SAFETY PHYSICIAN Yadira Huff MD URINE ORDERABLES [facility] [employer] [facility] [id number] [address] [facility] [place] [address] * (ABNORMAL) TRIGLYCERIDE (04/09/2018 7:26 PM SAFETY PHYSICIAN) TRIGLYCERIDE 2,480(H) <150 mg/dL 04/09/2018 10:11 PM SAFETY PHYSICIAN [facility] [employer] [facility] Blood Venipuncture / Unknown 04/09/2018 7:26 PM SAFETY PHYSICIAN 04/09/2018 7:31 PM SAFETY PHYSICIAN Narrative [facility] KIMO - 04/09/2018 10:11 PM SAFETY PHYSICIAN TRIGLYCERIDES ? mg/dL Normal ?< 150 Borderline High ?150 - 199 High ? 200 - 499 Very High ? >= 500 Based on AHA/NCEP Guidelines. Yadira Huff MD CHEMISTRY ORDERABLES Performing Organization Address [facility]/ZIP Co de Phone Number [facility] CLIA# [id number] [address] [place] [id number] * LIPASE (04/09/2018 7:26 PM SAFETY PHYSICIAN) [facility] LIPASE 35 13 - 60 U/L 04/09/2018 9:06 PM [facility] [employer] [facility] Blood Venipuncture / Unknown 04/09/2018 7:26 PM SAFETY PHYSICIAN 04/09/2018 7:31 PM SAFETY PHYSICIAN Yadira Huff MD CHEMISTRY ORDERABLES Performing Organization Address [facility] Co de Phone Number [facility] [employer] [facility] [id number] [address] [place] [address] * (ABNORMAL) COMPREHENSIVE METABOLIC PANEL (04/09/2018 7:26 PM SAFETY PHYSICIAN) Pathologist [facility] SODIUM 135(L) 136 - 145 mmol/L 04/09/2018 8:53 PM SAFETY PHYSICIAN [employer] [facility] POTASSIUM 4.2 3.5 - 5.0 mmol/L 04/09/2018 8:53 PM SAFETY PHYSICIAN [employer] [facility] CHLORIDE 97(L) 98 - 107 mmol/L 04/09/2018 8:53 PM [facility] . [place] CO2 22 22 - 29 mmol/L 04/09/2018 8:53 PM [facility] . [facility] CALCIUM 9.7 8.6 - 10.2 mg/dL 04/09/2018 8:53 PM [facility] BUN 12 6 - 20 mg/dL 04/09/2018 8:53 PM [facility] [employer] [facility] CREATININE 0.57 0.51 - 0.95 mg/dL 04/09/2018 8:53 PM [facility] [employer] [facility] GLUCOSE 227(H) 74 - 99 mg/dL 04/09/2018 8:53 PM [facility] [employer] [facility] TOTAL PROTEIN 7.4 6.7 - 8.6 g/dL 04/09/2018 8:53 PM [facility] [employer] [facility] ALBUMIN 4.3 3.5 - 5.2 g/dL 04/09/2018 8:53 PM [facility] [employer] [facility] BILIRUBIN TOTAL 0.2(L) 0.3 - 1.2 mg/dL 04/09/2018 8:53 PM [facility] [employer] [facility] ALKALINE PHOSPHATASE 75 35 - 104 U/L 04/09/2018 8:53 PM [facility] [employer] [facility] AST <5 <33 U/L 04/09/2018 8:53 PM [facility] [employer] [facility] Comment: Verified by repeat analysis. Hemolysis present. Result may be falsely elevated. ALT <5 <34 U/L 04/09/2018 8:53 PM [employer] [facility] Comment:Verified by repeat a nalysis. GFR >60 >=60 mL/min/1.7 3 sq meter 04/09/2018 8:53 PM [employer] [facility] Comment: eGFR has not been [...] GFR, >60 >=60 mL/min/1.7 3 sq meter 04/09/2018 8:53 PM SAFETY PHYSICIAN [employer] [facility] ANION GAP 16 8 - 16 mmol/L 04/09/2018 8:53 PM [employer] [facility] Blood Venipuncture / Unknown 04/09/2018 7:26 PM SAFETY PHYSICIAN 04/09/2018 7:31 PM [facility] - 04/09/2018 8:53 PM SAFETY PHYSICIAN Samples containing indocyanine green cause interferences on Total and/or Direct Bilirubin and must not be measured. Yadira Huff MD CHEMISTRY ORDERABLES [facility] CLIA# [id number] [address] [place] [address] * (ABNORMAL) CBC WITH DIFFERENTIAL (04/09/2018 7:26 PM SAFETY PHYSICIAN) WBC 9.3 4.0 - 9.8 K/uL 04/09/2018 7:37 PM [facility] RBC 4.46 3.90 - 4.90 M/uL 04/09/2018 7:37 PM [facility] HEMOGLOBIN 13.5 11.8 - 14.8 g/dL 04/09/2018 7:37 PM [facility] HEMATOCRIT 40.5 35.5 - 44.0 % 04/09/2018 7:37 PM [facility] [employer] [facility] MCV 90.8 82.0 - 99.0 fL 04/09/2018 7:37 PM [facility] [employer] [facility] MCH 30.3 27.2 - 32.6 pg 04/09/2018 7:37 PM [facility] [employer] [facility] MCHC 33.3 31.5 - 35.5 g/dL 04/09/2018 7:37 PM [facility] [employer] [facility] RDW 14.0 11.5 - 14.5 % 04/09/2018 7:37 PM [facility] [employer] [facility] RDW-STDEV 46.5 37.1 - 48.7 fL 04/09/2018 7:37 PM [facility] [employer] [facility] PLATELETS 246 140 - 350 K/uL 04/09/2018 7:37 PM [facility] [employer] [facility] MPV 9.1(L) 9.3 - 12.4 fL 04/09/2018 7:37 PM [facility] NEUTROPHILS 63 % 04/09/2018 7:37 PM [facility] LYMPHOCYTES 30 % 04/09/2018 7:37 PM [facility] MONOCYTES 5 % 04/09/2018 7:37 PM [facility] EOSINOPHILS 1 % 04/09/2018 7:37 PM [facility] BASOPHILS 0 % 04/09/2018 7:37 PM [facility] IMMATURE GRANULOCYTES 1 % 04/09/2018 7:37 PM [facility] Comment:IG (Immature Granulo cyte) count includes Metamyelocytes, Myelocytes, and Promyelocytes NEUTROPHIL ABSOLUTE 5.86 1.90 - 7.00 K/uL 04/09/2018 7:37 PM [facility] LYMPHOCYTE ABSOLUTE 2.79 0.70 - 4.50 K/uL 04/09/2018 7:37 PM [facility] MONOCYTE ABSOLUTE 0.48 0.10 - 1.30 K/uL 04/09/2018 7:37 PM [facility] EOSINOPHIL ABSOLUTE 0.05 0.00 - 0.70 K/uL 04/09/2018 7:37 PM [facility] BASOPHILS ABSOLUTE 0.04 0.00 - 0.20 K/uL 04/09/2018 7:37 PM [facility] IMMATURE GRANULOCYTES ABSOLUTE 0.06(H) 0.00 - 0.03 K/uL 04/09/2018 7:37 PM [facility] Blood Venipuncture / Unknown 04/09/2018 7:26 PM SAFETY PHYSICIAN 04/09/2018 7:31 PM SAFETY PHYSICIAN Yadira Huff MD HEMATOLOGY ORDERABLE S [facility] CLIA# [id number] [address] [facility] [place] [address] * EKG 12-LEAD (04/09/2018 6:10 PM SAFETY PHYSICIAN) 04/09/2018 6:10 PM SAFETY PHYSICIAN Narrative INTERFACE SYSTEM - 04/10/2018 7:09 PM SAFETY PHYSICIAN ? Stationary ECG Study ? [facility] ? Test Date: ?04/09/2018 6:10 PM Pat Name: ? CASANDRA DOSS ?Department: ?? 35 ?Room: ? 7380 1 Gender: ? F ?Molder Operator: ?? : ?[id number] ? Requested By: YADIRA HUFF DANIELLE Order Number: [id number] ?Reading MD: ?? Gigi Maza ? Measurements Intervals ?[place] ? Rate: ? 96 ? P: ?50 WI: ? 153 ?QRS: ?52 QRSD: ? 91 ? T: ?-9 QT: ? 348 ? QTc: ?440 ? Interpretive Statements ? Sinus rhythm Low voltage, precordial leads Borderline T abnormalities Electronically Signed On 04-10-2018 19:09:24 SAFETY PHYSICIAN by Gigi Maza Procedure Note Gigi Maza MD - 07/03/2021 Stationary [facility] Test Date: 04/09/2018 6:10 PM Pat Name: CASANDRA DOSS Department: 35 Room: 73 1 Gender: F Molder Operator: : [id number] Requested By: YADIRA SANTOS Order Number: [id number] Reading ZOE Maza Measurements Intervals [place] Rate: 96 P: 50 WI: 153 QRS: 52 QRSD: 91 T: -9 QT: 348 QTc: 440 Interpretive Statements Sinus rhythm Low voltage, precordial leads Borderline T abnormalities Electronically Signed On 04-10-2018 19:09:24 SAFETY PHYSICIAN by Gigi Maza Yadira Huff MD ECG ORDERABLES INTERFACE SYSTEM Refer to clinic/hospital department documented in this encounter Visit Diagnoses Diagnosis Other acute pancreatitis with uninfected necrosis- Primary Pain of upper abdomen Abdominal pain, other specified site Hypertriglyceridemia Pure hyperglyceridemia Pancreatitis, recurrent Chronic pancreatitis History of gestational diabetes Personal history of gestational diabetes Epigastric pain Abdominal pain, epigastric Hypertriglyceridemia Pure hyperglyceridemia Abdominal pain Abdominal pain, unspecified site History of plasmapheresis Hypernatremia Hyperosmolality and/or hypernatremia documented in this encounter Administered Medications Inactive Administered Medications - up to 3 most recent administrations Medication Order MAR Action Action Date Dose Rate Site calcium GLUCONATE 2,000 mg in sodium chloride 0.9% 120 mL IVPB 2,000 mg, IV, INTRA-PROCEDURE ONCE, 1 dose, Starting on Sat04/11/18 at 0900, Until Sat04/11/18 at 1128, Routine New Bag 04/11/2018 10:33 AM SAFETY PHYSICIAN 2,000 mg 240 mL/hr calcium GLUCONATE 2,000 mg in sodium chloride 0.9% 120 mL IVPB 2,000 mg, IV, INTRA-PROCEDURE ONCE, 1 dose, Starting on 04/12/18 at 1230, Until 04/12/18 at 1333, Routine Restarted 04/12/2018 12:44 PM SAFETY PHYSICIAN 144 mL/hr Rate Verify 04/12/2018 12:44 PM SAFETY PHYSICIAN 144 mL/hr New Bag 04/12/2018 12:43 PM SAFETY PHYSICIAN 2,000 mg 144 mL/hr calcium GLUCONATE 2,000 mg in sodium chloride 0.9% 120 mL IVPB 2,000 mg, IV, ONE TIME ONLY, 1 dose, On 04/12/18 at 1900, Routine New Bag 04/12/2018 6:59 PM SAFETY PHYSICIAN 2,000 mg 240 mL/hr citalopram (CeleXA) tablet 40 mg 40 mg, Oral, DAILY AT BEDTIME, First dose on Katie 04/10/18 at 2100, Until Discontinued, Routine Given 04/13/2018 8:01 PM SAFETY PHYSICIAN 40 mg Given 04/12/2018 11:51 PM SAFETY PHYSICIAN 40 mg Given 04/11/2018 8:39 PM SAFETY PHYSICIAN 40 mg dextrose 5 % in water 250 mL flush bag 25 mL 25 mL, IV, SEE ADMIN INSTRUCTIONS, Starting on Sat04/11/18 at 1626, Until Sat04/14/18 at 2202, Routine dextrose 5% - lactated ringers infusion IV, at 150 mL/hr, CONTINUOUS, Starting on Katie 04/10/18 at 1000, Until 04/13/18 at 0735, Routine Rate Verify 04/13/2018 2:18 AM SAFETY PHYSICIAN 150 mL/hr Rate Verify 04/13/2018 2:15 AM SAFETY PHYSICIAN 150 mL/hr Rate Verify 04/12/2018 11:53 PM SAFETY PHYSICIAN 150 mL/hr dextrose 5% - sodium chloride 0.45% infusion IV, at 100 mL/hr, CONTINUOUS, Starting on Sat04/13/18 at 0745, Until Sat04/14/18 at 2202, Routine Restarted 04/14/2018 9:22 AM SAFETY PHYSICIAN 100 m L/hr Rate Verify 04/14/2018 6:00 AM SAFETY PHYSICIAN 100 mL/hr Rate Verify 04/14/2018 5:06 AM SAFETY PHYSICIAN 100 mL/hr dextrose 5% - sodium chloride 0.9% infusion IV, at 40 mL/hr, SEE ADMIN INSTRUCTIONS, Starting on Sat04/10/18 at 0905, Until Sat04/14/18 at 2202, Routine dextrose 50% (D50) syringe 12.5 Gram 12.5 Gram, IV, SEE ADMIN INSTRUCTIONS, Starting on Sat04/10/18 at 0905, Until Sat04/14/18 at 2202, Routine dextrose 50% (D50) syringe 25 Gram 25 Gram, IV, SEE ADMIN INSTRUCTIONS, Starting on Sat04/10/18 at 0905, Until Sat04/14/18 at 2202, Routine diphenhydrAMINE (BENADRYL) injection 12.5 mg 12.5 mg, IV, EVERY 6 HOURS PRN, Starting on Sat04/10/18 at 1726, Until Sat04/11/18 at 1000, Itching, Routine Given 04/11/2018 6:34 AM SAFETY PHYSICIAN 12.5 mg Given 04/10/2018 5:53 PM SAFETY PHYSICIAN 12.5 mg diphenhydrAMINE (BENADRYL) tablet 25 mg 25 mg, Oral, EVERY 6 HOURS PRN, Starting on Sat04/10/18 at 1221, Until Sat04/14/18 at 2202, Itching, Routine Given 04/12/2018 8:55 AM SAFETY PHYSICIAN 25 mg Given 04/11/2018 9:47 PM SAFETY PHYSICIAN 25 mg Given 04/10/2018 1:04 PM SAFETY PHYSICIAN 25 mg enoxaparin (LOVENOX) injection 40 mg 40 mg, subCUT, EVERY 24 HOURS (DAILY), First dose on Katie 04/10/18 at 1130, Until Discontinued, Routine Given 04/14/2018 9:19 AM SAFETY PHYSICIAN 40 mg Abdomen, Left Lower Quadrant Given 04/13/2018 10:21 AM SAFETY PHYSICIAN 40 mg A bdomen, Right Lower Quadrant Given 04/12/2018 8:12 AM SAFETY PHYSICIAN 40 mg Ab domen, Right Lower Quadrant fenofibrate (LOFIBRA) tablet 160 mg 160 mg, Oral, DAILY, First dose on Katie 04/10/18 at 1030, Until Discontinued, Routine Given 04/14/2018 9:2 4 AM SAFETY PHYSICIAN 160 mg Given 04/13/2018 10:21 AM SAFETY PHYSICIAN 160 mg Given 04/12/2018 8:08 AM SAFETY PHYSICIAN 160 mg gabapentin (NEURONTIN) capsule 100 mg 100 mg, Oral, THREE TIMES DAILY, First dose on Katie 04/10/18 at 1030, Until Discontinued, Routine Given 04/12/2018 6:27 PM SAFETY PHYSICIAN 100 mg Given 04/12/2018 2:17 PM SAFETY PHYSICIAN 100 mg Given 04/12/2018 8:08 AM SAFETY PHYSICIAN 100 mg gabapentin (NEURONTIN) capsule 200 mg 200 mg, Oral, THREE TIMES DAILY, First dose (after last modification) on 04/13/18 at 0900, Until Discontinued, Routine Given 04/14/2018 5:17 PM SAFETY PHYSICIAN 200 mg Given 04/14/2018 12:13 PM SAFETY PHYSICIAN 200 mg Given 04/14/2018 9:19 AM SAFETY PHYSICIAN 200 mg glucagon HCl 1 mg injection 1 mg 1 mg, IM, SEE ADMIN INSTRUCTIONS, Starting on [place] 04/10/18 at 0905, Until 04/14/18 at 2202, Routine HYDROcodone-acetaminophen (NORCO) 5-325 mg per tablet 1 Tablet 1 Tablet, Oral, EVERY 4 HOURS PRN, Starting on [facility] 04/10/18 at 0854, Until Sat04/13/18 at 0816, Pain (See admin instructions), Routine Given 04/12/2018 6:27 PM SAFETY PHYSICIAN 1 Tablet Given 04/12/2018 2:18 PM SAFETY PHYSICIAN 1 Tablet Given 04/12/2018 8:07 AM SAFETY PHYSICIAN 1 Tablet HYDROmorphone (DILAUDID) 2 mg/mL injection 0.5 mg 0.5 mg, IV, EVERY 2 HOURS PRN, Starting on Katie 04/10/18 at 1658, Until 04/13/18 at 0827, Pain (See admin instructions), Routine Given 04/12/2018 4:48 PM SAFETY PHYSICIAN 0.5 mg Given 04/12/2018 12:22 PM SAFETY PHYSICIAN 0.5 mg Given 04/12/2018 9:13 AM SAFETY PHYSICIAN 0.5 mg hyoscyamine (LEVSIN) sublingual tablet 0.125 mg 0.125 mg, Sublingual, EVERY 6 HOURS PRN, Starting on Sat04/10/18 at 0015, Until Sat04/14/18 at 2202, Spasm, Routine Given 04/12/2018 8:23 PM SAFETY PHYSICIAN 0.125 mg insulin glargine (LANTUS) injection 15 Units 15 Units, subCUT, TWO TIMES DAILY, First dose on Sat04/10/18 at 1030, Until Discontinued, Routine Given 04/14/2018 9:24 AM SAFETY PHYSICIAN 15 Units Abdomen, Left Lower Quadrant Given 04/13/2018 9:53 PM SAFETY PHYSICIAN 15 Units Ar m, Right Given 04/13/2018 11:46 AM SAFETY PHYSICIAN 7 Units A rm, Left Upper insulin lispro (HumaLOG) variable dose injection subCUT, THREE TIMES DAILY WITH MEALS, First dose on Sat04/10/18 at 0915, Until Discontinued, Routine Given 04/14/2018 12:13 PM SAFETY PHYSICIAN 1 Units Arm, Left Upper Given 04/12/2018 12:28 PM SAFETY PHYSICIAN 1 Units A rm, Right Given 04/12/2018 8:17 AM SAFETY PHYSICIAN 1 Units Ar m, Right insulin lispro (HumaLOG) variable dose injection subCUT, DAILY AT BEDTIME, First dose on Sat04/10/18 at 2100, Until Discontinued, Routine iopamidol (ISOVUE-300) 61 % injection 120 mL 120 mL, IV, INTRA-PROCEDURE ONCE, 1 dose, Starting on Sat04/10/18 at 1116, Until Sat04/10/18 at 1130, Routine Contrast Given 04/10/2018 11:30 AM SAFETY PHYSICIAN 120 mL ketorolac (TORADOL) injection 15 mg 15 mg, IV, ONE TIME ONLY, 1 dose, On Sat04/09/18 at 2315, Routine Given 04/09/2018 11:21 PM SAFETY PHYSICIAN 15 mg levothyroxine (SYNTHROID) tablet 200 mcg 200 mcg, Oral, DAILY, First dose on Sat04/10/18 at 1030, Until Discontinued, Routine Given 04/14/2018 9:19 AM SAFETY PHYSICIAN 200 mcg Given 04/13/2018 10:22 AM SAFETY PHYSICIAN 200 mcg Given 04/12/2018 8:08 AM SAFETY PHYSICIAN 200 mcg LORazepam (ATIVAN) tablet 1 mg 1 mg, Oral, TWO TIMES DAILY PRN, Starting on Sat04/10/18 at 0015, Until Sat04/14/18 at 2202, Anxiety, Routine Given 04/10/2018 1:13 AM SAFETY PHYSICIAN 1 mg morphine 4 mg/mL injection 4 mg 4 mg, IV, ONE TIME ONLY, 1 dose, On Sat04/09/18 at 2145, Routine Given 04/09/2018 9:43 PM SAFETY PHYSICIAN 4 mg morphine 4 mg/mL injection 4 mg 4 mg, IV, ONE TIME ONLY, 1 dose, On Sat04/09/18 at 2315, Routine Given 04/09/2018 11:21 PM SAFETY PHYSICIAN 4 mg morphine 4 mg/mL injection 4 mg 4 mg, IV, EVERY 3 HOURS PRN, Starting on Sat04/10/18 at 0015, Until Sat04/10/18 at 0953, Pain (See admin instructions), Routine Given 04/10/2018 8:54 AM SAFETY PHYSICIAN 4 mg Given 04/10/2018 5:37 AM SAFETY PHYSICIAN 4 mg Given 04/10/2018 2:18 AM SAFETY PHYSICIAN 4 mg morphine injection 6 mg 6 mg, IV, EVERY 2 HOURS PRN, Starting on Sat04/10/18 at 1000, Until Sat04/10/18 at 1537, Pain (See admin instructions), Routine Given 04/10/2018 2:31 PM SAFETY PHYSICIAN 6 mg Given 04/10/2018 11:08 AM SAFETY PHYSICIAN 6 mg niacin (NIACOR) tablet 500 mg 500 mg, Oral, TWO TIMES DAILY, First dose on Katie 04/10/18 at 1030, Until Discontinued, Routine Given 04/12/2018 8:08 AM SAFETY PHYSICIAN 500 mg Given 04/11/2018 9:44 PM SAFETY PHYSICIAN 500 mg Given 04/11/2018 8:24 AM SAFETY PHYSICIAN 500 mg niacin (NIASPAN ER) SR 24 hour tablet 500 mg 500 mg, Oral, DAILY WITH BREAKFAST, First dose on Sat04/13/18 at 1430, Until Discontinued, Routine Given 04/14/2018 10:33 AM SAFETY PHYSICIAN 500 mg Given 04/13/2018 6:05 PM SAFETY PHYSICIAN 500 mg nicotine (NICODERM CQ) 14 mg/24 hr transdermal patch 1 Patch 1 Patch, Transdermal, DAILY, First dose on Katie 04/10/18 at 1100, Until Discontinued, Routine Applied 04/14/2018 9:23 AM SAFETY PHYSICIAN 1 Patch Maurisio sergio, Left Applied 04/13/2018 10:24 AM SAFETY PHYSICIAN 1 Patch A rm, Right Upper Applied 04/12/2018 8:11 AM SAFETY PHYSICIAN 1 Patch Ar m, Left ondansetron (ZOFRAN ODT) tablet 4 mg 4 mg, Oral, EVERY 6 HOURS PRN, Starting on Sat04/10/18 at 0015, Until Sat04/10/18 at 0953, Nausea/Emesis, Routine Given 04/10/2018 1:11 AM SAFETY PHYSICIAN 4 mg ondansetron (ZOFRAN) 4 mg/2 mL injection 4 mg 4 mg, IV, ONE TIME ONLY, 1 dose, On Sat04/09/18 at 2145, Routine Given 04/09/2018 9:43 PM SAFETY PHYSICIAN 4 mg ondansetron (ZOFRAN) 4 mg/2 mL injection 4 mg 4 mg, IV, EVERY 6 HOURS PRN, Starting on Sat04/10/18 at 0854, Until Sat04/14/18 at 2202, Nausea/Emesis, Routine Given 04/14/2018 12:33 PM SAFETY PHYSICIAN 4 mg Given 04/13/2018 7:59 PM SAFETY PHYSICIAN 4 mg Given 04/13/2018 9:34 AM SAFETY PHYSICIAN 4 mg ONDANSETRON HCL (PF) 4 MG/2 ML INJECTION SOLUTION (CABINET OVERRIDE) 1 dose, Starting on Sat04/09/18 at 2141, Until Sat04/09/18 at 2143, [place] OMNICELL: cabinet override oxyCODONE-acetaminophen (PERCOCET) 5-325 mg per tablet 1 Tablet 1 Tablet, Oral, EVERY 4 HOURS PRN, Starting on Sat04/13/18 at 0816, Until Sat04/14/18 at 2202, Pain (See admin instructions), Routine Given 04/14/2018 6:37 PM SAFETY PHYSICIAN 1 Tablet Given 04/14/2018 2:29 PM SAFETY PHYSICIAN 1 Tablet Given 04/14/2018 9:28 AM SAFETY PHYSICIAN 1 Tablet pantoprazole (PROTONIX) tablet 40 mg 40 mg, Oral, TWO TIMES DAILY, First dose on Sat04/10/18 at 1030, Until Discontinued, Routine Given 04/14/2018 9:28 AM SAFETY PHYSICIAN 40 mg Given 04/13/2018 8:01 PM SAFETY PHYSICIAN 40 mg Given 04/13/2018 10:26 AM SAFETY PHYSICIAN 40 mg polyethylene glycol (MIRALAX) packet 17 Gram 17 Gram, Oral, TWO TIMES DAILY, First dose on [facility] 04/12/18 at 0900, Until Discontinued, Routine Given 04/14/2018 9:19 AM SAFETY PHYSICIAN 17 Grams Given 04/12/2018 8:56 AM SAFETY PHYSICIAN 17 Grams potassium CHLORIDE (KLOR-CON) 20 mEq powder 40 mEq 40 mEq, Oral, ONE TIME ONLY, 1 dose, On Sat04/14/18 at 0730, Routine Given 04/14/2018 9:19 AM SAFETY PHYSICIAN 40 mEq potassium chloride 40 mEq in sodium chloride 0.9% 250 mL IVPB 40 mEq, IV, ONE TIME ONLY, 1 dose, On Sat04/14/18 at 0900, at 67.5 mL/hr, Administer over 4 Hours, Routine Restarted 04/14/2018 12:34 PM SAFETY PHYSICIAN 60 mL/hr Rate Verify 04/14/2018 12:01 PM SAFETY PHYSICIAN 60 mL/hr New Bag 04/14/2018 12:00 PM SAFETY PHYSICIAN 40 mEq 60 mL/hr prochlorperazine (COMPAZINE) injection 5 mg 5 mg, IV, EVERY 6 HOURS PRN, Starting on Sat04/10/18 at 1724, Until Sat04/14/18 at 2202, Nausea/Emesis, Routine Given 04/14/2018 9:19 AM SAFETY PHYSICIAN 5 mg Given 04/13/2018 1:24 PM SAFETY PHYSICIAN 5 mg Given 04/12/2018 6:58 PM SAFETY PHYSICIAN 5 mg sennosides (SENOKOT) tablet 8.6 mg 8.6 mg, Oral, TWO TIMES DAILY, First dose on [facility] 04/10/18 at 1015, Until Discontinued, Routine Given 04/14/2018 9:19 AM SAFETY PHYSICIAN 8.6 mg Given 04/13/2018 8:01 PM SAFETY PHYSICIAN 8.6 mg Given 04/13/2018 10:27 AM SAFETY PHYSICIAN 8.6 mg sodium chloride 0.9 % 250 mL flush bag 25 mL 25 mL, IV, SEE ADMIN INSTRUCTIONS, Starting on Sat04/11/18 at 1626, Until Sat04/14/18 at 2202, Routine sodium chloride 0.9% bolus solution 1,000 mL 1,000 mL, IV, ONE TIME ONLY, 1 dose, On Sat04/09/18 at 2145, at 2,000 mL/hr, Administer over 30 Minutes, Routine New Bag 04/09/2018 9:43 PM SAFETY PHYSICIAN 1,000 mL 2000 mL/hr sodium chloride 0.9% bolus solution 1,000 mL 1,000 mL, IV, ONE TIME ONLY, 1 dose, On [place] 04/10/18 at 0030, at 2,000 mL/hr, Administer over 30 Minutes, Routine New Bag 04/10/2018 1:26 AM SAFETY PHYSICIAN 1,000 mL 2000 mL/hr sodium chloride 0.9% bolus solution 10 mL 10 mL, IV, ONE TIME ONLY, 1 dose, On [facility] 04/10/18 at 1130, at 600 mL/hr, Administer over 1 Minutes, Routine New Bag 04/10/2018 11:20 AM SAFETY PHYSICIAN 10 mL 600 mL/hr sodium chloride flush injection 5 mL 5 mL, IV, EVERY 12 HOURS (BlD), First dose on Sat04/11/18 at 2100, Until Discontinued, Routine Given 04/14/2018 9:21 AM SAFETY PHYSICIAN 5 mL Given 04/13/2018 9:26 AM SAFETY PHYSICIAN 5 mL sodium chloride flush injection 5 mL 5 mL, IV, SEE ADMIN INSTRUCTIONS, Starting on Sat04/11/18 at 1626, Until Sat04/14/18 at 2202, Routine Given 04/11/2018 10:30 PM SAFETY PHYSICIAN 5 mL Given 04/11/2018 5:39 PM SAFETY PHYSICIAN 5 mL spironolactone (ALDACTONE) tablet 25 mg 25 mg, Oral, DAILY, First dose on Katie 04/10/18 at 1030, Until Discontinued, Routine Given 04/10/2018 11:46 AM SAFETY PHYSICIAN 25 mg sucralfate (CARAFATE) 100 mg/mL suspension 1 Gram 1 Gram, Oral, FOUR TIMES DAILY BEFORE MEALS AND AT BEDTIME, First dose on [facility] 04/10/18 at 1130, Until Discontinued, Routine Given 04/14/2018 5:17 PM SAFETY PHYSICIAN 1 Gram Given 04/14/2018 10:33 AM SAFETY PHYSICIAN 1 Gram Given 04/14/2018 5:06 AM SAFETY PHYSICIAN 1 Gram traZODone (DESYREL) tablet 100 mg 100 mg, Oral, DAILY AT BEDTIME, First dose on [facility] 04/10/18 at 2100, Until Discontinued, Routine Given 04/13/2018 8:01 PM SAFETY PHYSICIAN 100 mg Given 04/12/2018 11:42 PM SAFETY PHYSICIAN 100 mg Given 04/11/2018 8:39 PM SAFETY PHYSICIAN 100 mg documented in this encounter Active and Recently Administered Medications Times are shown in SAFETY PHYSICIAN. Scheduled Medication Order 04/12/2018 04/13/2018 04/14/2018 calcium GLUCONATE 2,000 mg in sodium chloride 0.9% 120 mL IVPB (COMPLETED) 2,000 mg, IV, INTRA-PROCEDURE ONCE, 1 dose, Starting on 04/12/18 at 1230, Until 04/12/18 at 1333, Routine 1243 (New Bag - Provider: Sari Sanford)1244 (Rate Verify - Provider: Dickson Seth RN)1244 (Paused - Provider: Dickson Seth RN)1244 (Restarted - Provider: Dickson Seth, CLAU)1333 (Stopped - Provider: Sari Sanford) calcium GLUCONATE 2,000 mg in sodium chloride 0.9% 120 mL IVPB (COMPLETED) 2,000 mg, IV, ONE TIME ONLY, 1 dose, On 04/12/18 at 1900, Routine 1859 (New Bag - Provider: Dickson Seth RN)1929 (Stopped - Provider: Wen Moss, CLAU) citalopram (CeleXA) tablet 40 mg 40 mg, Oral, DAILY AT BEDTIME, First dose on Sat04/10/18 at 2100, Until Discontinued, Routine 2351 (Given - Provider: Wen Moss, CLAU) 2000 (Given - Provider: Wen Moss, CLAU) dextrose 5 % in water 250 mL flush bag 25 mL 25 mL, IV, SEE ADMIN INSTRUCTIONS, Starting on Sat04/11/18 at 1626, Until Sat04/14/18 at 2202, Routine dextrose 5% - sodium chloride 0.9% infusion IV, at 40 mL/hr, SEE ADMIN INSTRUCTIONS, Starting on Sat04/10/18 at 0905, Until Sat04/14/18 at 2202, Routine dextrose 50% (D50) syringe 12.5 Gram 12.5 Gram, IV, SEE ADMIN INSTRUCTIONS, Starting on Sat04/10/18 at 0905, Until Sat04/14/18 at 2202, Routine dextrose 50% (D50) syringe 25 Gram 25 Gram, IV, SEE ADMIN INSTRUCTIONS, Starting on Sat04/10/18 at 0905, Until Sat04/14/18 at 2202, Routine enoxaparin (LOVENOX) injection 40 mg 40 mg, subCUT, EVERY 24 HOURS (DAILY), First dose on Katie 04/10/18 at 1130, Until Discontinued, Routine 0812 (Given - Provider: Dickson Seth RN) 1021 (Given - Provider: Jeff Tariq RN) 0919 (Given - Provider: Thiago Carpio RN) fenofibrate (LOFIBRA) tablet 160 mg 160 mg, Oral, DAILY, First dose on Katie 04/10/18 at 1030, Until Discontinued, Routine 0808 (Given - Provider: Dickson Seth RN) 1021 (Given - Provider: Jeff Tariq RN) 0924 (Given - Provider: Thiago Carpio RN) gabapentin (NEURONTIN) capsule 100 mg (CANCELED) 100 mg, Oral, THREE TIMES DAILY, First dose on Katie 04/10/18 at 1030, Until Discontinued, Routine 0808 (Given - Provider: Dickson Seth RN)1417 (Given - Provider: Dickson Seth RN)1827 (Given - Provider: Dickson Seth RN) gabapentin (NEURONTIN) capsule 200 mg 200 mg, Oral, THREE TIMES DAILY, First dose (after last modification) on Sat04/13/18 at 0900, Until Discontinued, Routine 1021 (Given - Provider: Jeff Tariq RN)1325 (Given - Provider: Jeff Tariq RN)1805 (Given - Provider: Jeff Tariq RN) 0919 (Given - Provider: Thiago Carpio RN)1213 (Given - Provider: Thiago Carpio RN)1717 (Given - Provider: Thiago Carpio RN) glucagon HCl 1 mg injection 1 mg 1 mg, IM, SEE ADMIN INSTRUCTIONS, Starting on Katie 04/10/18 at 0905, Until Sat04/14/18 at 2202, Routine insulin glargine (LANTUS) injection 15 Units 15 Units, subCUT, TWO TIMES DAILY, First dose on Katie 04/10/18 at 1030, Until Discontinued, Routine 0818 (Given - Provider: Dickson Seth RN)2035 (Given - Provider: Wen Moss RN - Comment: 114) 1146 (Given - Provider: Jeff Tariq RN - Comment: Physician called and dose changed for this adminGlucose 102 this am)215 (Given - Provider: Wen Moss RN - Comment: BG 154) 0924 (Given - Provider: Thiago Carpio RN) insulin lispro (HumaLOG) variable dose injection subCUT, THREE TIMES DAILY WITH MEALS, First dose on Katie 04/10/18 at 0915, Until Discontinued, Routine 0817 (Given - Provider: Dickson Seth RN - Comment: [id number])1228 (Given - Provider: Dickson Seth RN - Comment: [id number])1650 (Not Given - Provider: Dickson Seth RN - Reason: Lab results - Comment: bs-125) 0800 (Not Given - Provider: Jeff Tariq RN - Reason: Clarify-Other (Comment) - Comment: BG 102)1151 (Not Given - Provider: Jeff Tariq RN - Reason: Clarify-Other (Comment) - Comment: BG 116)1700 (Not Given - Provider: Wen Moss RN - Reason: Lab results - Comment: BG 101) 0925 (Not Given - Provider: Thiago Carpio RN - Reason: Lab results - Comment: BS 110)1213 (Given - Provider: Thiago Carpio RN - Comment: BS 145)1700 (Due) insulin lispro (HumaLOG) variable dose injection subCUT, DAILY AT BEDTIME, First dose on Katie 04/10/18 at 2100, Until Discontinued, Routine 2100 (Not Given - Provider: Wen Moss RN - Reason: Lab results - Comment: BG 114) 2200 (Not Given - Provider: Wen Moss RN - Reason: Lab results) levothyroxine (SYNTHROID) tablet 200 mcg 200 mcg, Oral, DAILY, First dose on Katie 04/10/18 at 1030, Until Discontinued, Routine 0808 (Given - Provider: Dickson Seth RN) 1022 (Given - Provider: Jeff Tariq RN) 0919 (Given - Provider: Thiago Carpio RN) naloxone (NARCAN) 0.4 mg/mL injection 0.1 mg 0.1 mg, IV, SEE ADMIN INSTRUCTIONS, Starting on Katie 04/10/18 at 0851, Until 04/14/18 at 2202, Routine niacin (NIACOR) tablet 500 mg (CANCELED) 500 mg, Oral, TWO TIMES DAILY, First dose on Katie 04/10/18 at 1030, Until Discontinued, Routine 0808 (Given - Provider: Dickson Seth RN) niacin (NIASPAN ER) SR 24 hour tablet 500 mg 500 mg, Oral, DAILY WITH BREAKFAST, First dose on Sat04/13/18 at 1430, Until Discontinued, Routine 1805 (Given - Provider: Jeff Tariq RN) 1033 (Given - Provider: Thiago Carpio, CLAU) nicotine (NICODERM CQ) 14 mg/24 hr transdermal patch 1 Patch 1 Patch, Transdermal, DAILY, First dose on Katie 04/10/18 at 1100, Until Discontinued, Routine 0811 (Applied - Provider: Dickson Seth RN)0823 (Removed - Provider: Dickson Seth RN) 0811 (Removed - Provider: Jeff Tariq RN)1024 (Applied - Provider: Jeff Tariq RN) 0920 (Removed - Provider: Thiago Carpio, CLAU)0923 (Applied - Provider: Thiago Carpio RN)2001 (Due: Removed - Provider: PROVIDER, DISCHARGE PATIENT - Comment: Time automatically adjusted from order being discontinued) pantoprazole (PROTONIX) tablet 40 mg 40 mg, Oral, TWO TIMES DAILY, First dose on Katie 04/10/18 at 1030, Until Discontinued, Routine 0808 (Given - Provider: Dickson Seth RN)2342 (Given - Provider: Wen Moss, CLAU) 1026 (Given - Provider: Jeff Tariq RN)2000 (Given - Provider: Wen Moss, CLAU) 0928 (Given - Provider: Thiago Carpio RN) polyethylene glycol (MIRALAX) packet 17 Gram 17 Gram, Oral, TWO TIMES DAILY, First dose on 04/12/18 at 0900, Until Discontinued, Routine 0856 (Given - Provider: Dickson Seth RN)2100 (Refused - Provider: Wen Moss RN - Comment: Patient still working on previous administration.) 1027 (Refused - Provider: Jeff Tariq, RN)2000 (Refused - Provider: Wen Moss, CLAU) 918 (Given - Provider: Thiago Carpio, CLAU) potassium CHLORIDE (KLOR-CON) 20 mEq powder 40 mEq (COMPLETED) 40 mEq, Oral, ONE TIME ONLY, 1 dose, On Sat04/14/18 at 0730, Routine 0919 (Given - Provider: Thiago Carpio, CLAU) potassium chloride 40 mEq in sodium chloride 0.9% 250 mL IVPB (COMPLETED) 40 mEq, IV, ONE TIME ONLY, 1 dose, On Sat04/14/18 at 0900, at 67.5 mL/hr, Administer over 4 Hours, Routine 1200 (New Bag - Provider: Thiago Carpio, CLAU)1201 (Rate Verify - Provider: Thiago Carpio, CLAU)1234 (Paused - Provider: Thiago Carpio, CLAU)1234 (Restarted - Provider: Thiago Carpio, CLAU)1600 (Stopped - Provider: Thiago Carpio RN) rosuvastatin (CRESTOR) tablet 20 mg 20 mg, Oral, DAILY AT BEDTIME, First dose on Katie 04/10/18 at 2100, Until Discontinued, Routine, Previous Med: rosuvastatin (CRESTOR) 20 mg tablet - Orig Sig - Take 20 mg by mouth daily at bedtime. 2100 (Canceled Entry - Provider: Wen Moss, CLAU) 2100 (Not Given - Provider: Wen Moss RN - Reason: Clarify-Other (Comment) - Comment: Not available) sennosides (SENOKOT) tablet 8.6 mg 8.6 mg, Oral, TWO TIMES DAILY, First dose on Katie 04/10/18 at 1015, Until Discontinued, Routine 0808 (Given - Provider: Dickson Seth, CLAU)2343 (Given - Provider: Wen Moss, CLAU) 1027 (Given - Provider: Jeff Tariq, CLAU)2000 (Given - Provider: Wen Moss, CLAU) 09 (Given - Provider: Thiago Carpio RN) sodium chloride 0.9 % 250 mL flush bag 25 mL 25 mL, IV, SEE ADMIN INSTRUCTIONS, Starting on Sat04/11/18 at 1626, Until Sat04/14/18 at 2202, Routine sodium chloride flush injection 5 mL 5 mL, IV, EVERY 12 HOURS (BlD), First dose on Sat04/11/18 at 2100, Until Discontinued, Routine 0916 (Not Given - Provider: Dickson Seth RN - Reason: Clarify-Other (Comment) - Comment: ivf infusing)2100 (Not Given - Provider: Wen Moss RN - Reason: Clarify-Other (Comment) - Comment: Not locked) 0926 (Given - Provider: Jeff Tariq RN)2100 (Not Given - Provider: Wen Moss RN - Reason: Clarify-Other (Comment) - Comment: Not locked) 0921 (Given - Provider: Thiago Carpio RN) sodium chloride flush injection 5 mL 5 mL, IV, SEE ADMIN INSTRUCTIONS, Starting on Sat04/11/18 at 1626, Until Sat04/14/18 at 2202, Routine sucralfate (CARAFATE) 100 mg/mL suspension 1 Gram 1 Gram, Oral, FOUR TIMES DAILY BEFORE MEALS AND AT BEDTIME, First dose on Katie 04/10/18 at 1130, Until Discontinued, Routine 1019 (Given - Provider: Dickson Seth RN)1232 (Given - Provider: Dickson Seth RN)1651 (Given - Provider: Dickson Seth RN)1949 (Given - Provider: Wen Moss RN) 0922 (Given - Provider: Jeff Tariq RN)1154 (Given - Provider: Jeff Tairq RN)1543 (Given - Provider: Jeff Tariq RN)2149 (Given - Provider: Wne Moss RN) 0506 (Given - Provider: Wen Moss RN)1033 (Given - Provider: Thiago Carpio RN)1717 (Given - Provider: Thiago Carpio RN) traZODone (DESYREL) tablet 100 mg 100 mg, Oral, DAILY AT BEDTIME, First dose on Katie 04/10/18 at 2100, Until Discontinued, Routine 2342 (Given - Provider: Wen Moss RN) 2000 (Given - Provider: Wen Moss RN) Continuous Medication Order 04/12/2018 04/13/2018 04/14/2018 dextrose 5% - lactated ringers infusion (CANCELED) IV, at 150 mL/hr, CONTINUOUS, Starting on Katei 04/10/18 at 1000, Until 04/13/18 at 0735, Routine 0122 (Rate Change - Provider: Dickson Seth RN)0124 (New Bag - Provider: Justo Meyers RN)0125 (Rate Verify - Provider: Dickson Seth RN)0745 (Rate Change - Provider: Dickson Seth RN)0750 (Rate Change - Provider: Dickson Seth RN)0755 (New Bag - Provider: Dickson Seth RN)0756 (Paused - Provider: Dickson Seth RN)0756 (Restarted - Provider: Dickson Seth RN)0756 (Paused - Provider: Dickson Seth RN)0756 (Restarted - Provider: Dickson Seth RN)1008 (Rate Verify - Provider: Dickson Seth RN)1416 (Rate Change - Provider: Dcikson Seth RN)1417 (New Bag - Provider: Dickson Seth RN)1417 (Paused - Provider: Wen Moss RN)1417 (Restarted - Provider: Wen Moss RN)1900 (Paused - Provider: Wen Moss, CLAU)1931 (Restarted - Provider: Wen Moss RN)2037 (New Bag - Provider: Wen Moss RN)2038 (Rate Verify - Provider: Wen Moss RN)2353 (Rate Verify - Provider: Wen Moss RN) 0215 (Rate Verify - Provider: Wen Moss RN)0218 (Rate Verify - Provider: Wen Moss RN)0925 (Stopped - Provider: Jeff Tariq RN) dextrose 5% - sodium chloride 0.45% infusion IV, at 100 mL/hr, CONTINUOUS, Starting on 04/13/18 at 0745, Until 04/14/18 at 2202, Routine 0931 (New Bag - Provider: Jeff Tariq RN)0932 (Rate Verify - Provider: Wen Moss RN)0932 (Paused - Provider: Wen Moss RN)0932 (Restarted - Provider: Wen Moss RN)0936 (Paused - Provider: Wen Moss RN)0939 (Restarted - Provider: Wen Moss RN)1915 (Rate Verify - Provider: Wen Moss RN)1935 (Rate Change - Provider: Wen Moss RN)1936 (Paused - Provider: Wen Moss RN)1940 (Rate Change - Provider: Wen Moss RN)1942 (New Bag - Provider: Wen Moss RN)1942 (Rate Verify - Provider: Wen Moss RN) 0506 (New Bag - Provider: Wen Moss RN)0506 (Rate Verify - Provider: Wen Moss RN)0600 (Rate Verify - Provider: Wen Moss RN)0921 (Paused - Provider: Thiago Carpio RN)0922 (Restarted - Provider: Thiago Carpio RN)1201 (Paused - Provider: Thiago Carpio RN) PRN Medication Order 04/12/2018 04/13/2018 04/14/2018 diphenhydrAMINE (BENADRYL) tablet 25 mg 25 mg, Oral, EVERY 6 HOURS PRN, Starting on Katie 04/10/18 at 1221, Until 04/14/18 at 2202, Itching, Routine 0855 (Given - Provider: Dickson Seth, CLAU) HYDROcodone-acetaminop hen (NORCO) 5-325 mg per tablet 1 Tablet (CANCELED) 1 Tablet, Oral, EVERY 4 HOURS PRN, Starting on Katie 04/10/18 at 0854, Until 04/13/18 at 0816, Pain (See admin instructions), Routine 0807 (Given - Provider: Dickson Seth RN)1418 (Given - Provider: Dickson Seth RN)1827 (Given - Provider: Dickson Seth RN) HYDROmorphone (DILAUDID) 2 mg/mL injection 0.5 mg (CANCELED) 0.5 mg, IV, EVERY 2 HOURS PRN, Starting on Katie 04/10/18 at 1658, Until 04/13/18 at 0827, Pain (See admin instructions), Routine 0407 (Given - Provider: Justo Meyers RN)0913 (Given - Provider: Dickson Seth RN)1222 (Given - Provider: Dickson Seth RN)1648 (Given - Provider: Dickson Seth RN) hyoscyamine (LEVSIN) sublingual tablet 0.125 mg 0.125 mg, Sublingual, EVERY 6 HOURS PRN, Starting on Katie 04/10/18 at 0015, Until Sat04/14/18 at 2202, Spasm, Routine 2022 (Given - Provider: Wen Moss, CLAU) LORazepam (ATIVAN) tablet 1 mg 1 mg, Oral, TWO TIMES DAILY PRN, Starting on Katie 04/10/18 at 0015, Until Sat04/14/18 at 2202, Anxiety, Routine ondansetron (ZOFRAN) 4 mg/2 mL injection 4 mg 4 mg, IV, EVERY 6 HOURS PRN, Starting on Katie 04/10/18 at 0854, Until Sat04/14/18 at 2202, Nausea/Emesis, Routine 0805 (Given - Provider: Dickson Seth RN)1647 (Given - Provider: Dickson Seth RN) 0934 (Given - Provider: Jeff Tariq RN)1959 (Given - Provider: Wen Moss RN) 1233 (Given - Provider: Thiago Carpio RN) oxyCODONE-acetaminophe n (PERCOCET) 5-325 mg per tablet 1 Tablet 1 Tablet, Oral, EVERY 4 HOURS PRN, Starting on 04/13/18 at 0816, Until Sat04/14/18 at 2202, Pain (See admin instructions), Routine 0933 (Given - Provider: Jeff Tariq RN)1439 (Given - Provider: Jeff Tariq RN)2000 (Given - Provider: Wen Moss RN) 0928 (Given - Provider: Thiago Carpio, CLAU)1429 (Given - Provider: Thiago Carpio, RN)1837 (Given - Provider: Thiago Carpio, CLAU) prochlorperazine (COMPAZINE) injection 5 mg 5 mg, IV, EVERY 6 HOURS PRN, Starting on Katie 04/10/18 at 1724, Until 04/14/18 at 2202, Nausea/Emesis, Routine 1224 (Given - Provider: Dickson Seth RN)1858 (Given - Provider: Dickson Seth RN) 1324 (Given - Provider: Jeff Tariq, CLAU) 0908 (Given - Provider: Thiago Carpio RN) documented in this encounter Care Teams Router Machine Operator Relationship Specialty Start Date End Date Guerrero Middleton PA-C PCP - General Physician Caption Writer 02/13/18 documented as of this encounter
--- OUTSIDE RECORDS SUMMARY | 2024-05-03 20:46 | XMS_ITS | Encounter Summary ---
Author Organization [facility] Address [address] [place] [address] Care Team Providers Care Hospitality Host Name Role Phone Guerrero Middleton PA-C [...] Tequila bowman Referred To Contact Emergency [facility] [address] [place] [address] Referral ID Status Reason Start Date Expiration Date Visits Re quested Visits Authorized [id number] 1 1 Encounter Details Date Type Department Care Team (Latest Contact Info) Description 03/08/2018 10:20 AM NUTRITION SERVICES ASSOCIATE - 03/08/2018 11:00 AM NUTRITION SERVICES ASSOCIATE Surgery [facility] [address] [place] [address] Ceasar Vega MD [address] [facility] [address] [place] [address] ESOPHAGOGASTRODUODENOSCOPY Surgery Details Date/Time Status Location OR Service Patient Class Case Class Case Type Trauma Case? 03/08/2018 10:20 AM Posted [facility] GI LAB GI 03 Gastroenterology Inpatient Elective No Panel 1 Procedure LRB Anes Op Region Wound Class Comments ESOPHAGOGASTRODUODENOSCOPY N/A General Mouth Surgeon Surgeon Role Service Panel Ceasar Vega MD Primary Gastroenterology 1 documented in this encounter Social History [...] Sign Reading Time Taken Comments Blood Pressure 109/56 03/08/2018 10:50 AM NUTRITION SERVICES ASSOCIATE Pulse 67 03/08/2018 10:50 AM NUTRITION SERVICES ASSOCIATE Temperature 36.3 ??C (97.3 ??F) 03/08/2018 10:[address] Respiratory Rate 18 03/08/2018 10:50 AM NUTRITION SERVICES ASSOCIATE Oxygen Saturation 93% 03/08/2018 10:50 AM NUTRITION SERVICES ASSOCIATE Inhaled Oxygen Concentration - - Weight 86.2 kg (190 lb) 03/07/2018 10:09 PM NUTRITION SERVICES ASSOCIATE Height 162.6 cm (5' 4 ) 03/07/2018 10:09 PM NUTRITION SERVICES ASSOCIATE Body Mass Index 32.61 03/07/2018 10:09 PM NUTRITION SERVICES ASSOCIATE documented in this encounter Discharge Summaries * Alize Morel DO - 03/09/2018 12:54 PM CST Images from the original note were not included. [facility] Adult Hospitalist Discharge Summary Linda Doss 42 y.o. female 1975 CSN: [id number] Date of Admission: 03/07/2018 Date of Discharge: [...] told me that she has seen a employee development director at some point and was told that [...] needed for Spasm. Signed by: Alize Morel, DO Quantity: 30 Tablet Refills: 0 omega-3 acid ethyl esters 1 gram Capsule Commonly known as: OMACOR,LOVAZA Take 4 Capsules by mouth 2 times daily with meals. Signed by: Alize Morel, DO Quantity: 60 Capsule Refills: 0 ondansetron 4 mg Tablet, Rapid Dissolve Commonly known as: ZOFRAN ODT Dissolve 1 Tablet on top of tongue,then swallow with saliva every 6 hours as needed for nausea/vomiting. Signed by: Alize Morel, DO Quantity: 30 Tablet Refills: 0 CHANGE how you take these medications levothyroxine 200 mcg tablet Commonly known as: SYNTHROID What changed: ?? medication strength ?? how much to take ?? when to take this ?? additional instructions Take 1 Tablet by mouth daily without food in the morning 30 minutes before eating anything. Signed by: Alize Morel, DO Quantity: 30 Tablet Refills: 0 CONTINUE taking these medications CeleXA 40 mg tablet Take 40 mg by mouth daily. Refills: 0 Generic drug: citalopram CREON 60-12-38 capsule Take by mouth 3 times daily. Refills: 0 Generic drug: zdhxqdp-pewqhl-cabxsflt DR fenofibrate 160 mg Tablet Commonly known [...] by mouth 2 times daily. Refills: 0 BBVHE8C-QSN-ZBQ-RFWA OIL ORAL Take by mouth 4 times [...] Your Medications These medications were sent to [place] [id number], [place] [id number] Hours: Saturday-Saturday: 8 a.m. - 8 p.m., [...] MORE THAN [address] Moreno Gates ITION SERVICES ASSOCIATE documented in this encounter Discharge Instructions * Discharge Instructions* Alize Morel DO - 03/09/2018 12:59 PM NUTRITION SERVICES ASSOCIATE Your discharging physician is Alize Morel DO and may be reached at [phone] for any questions or concerns until you [...] is not relieved by nitroglycerin. Smoking Exposure: [facility] encourages all patients to decrease risks associated with smoking and second hand smoke exposure. If you smoke you are advised to quit. Ask your health care provider for advice if you need assistance to stop smoking. Avoid second-hand smoke exposure and do not let people smoke in your home. Please call [phone], our pulmonary rehabilitation department, to learn more about options to reduce your risks. ACTIVITY Your activity level is: no restrictions, increase activity as tolerated and no smoking. You may return to work/school na. DIET Your diet is: Very Low fat, diabetic WOUND CARE For your wound/incision: na. ITION SERVICES ASSOCIATE documented in this encounter Medications at Time [...] mg by mouth 2 times daily. 04/10/2018 gygdzxw-thdsct-tgvwlknb DR (CREON) 60-12-38 capsule Take by mouth [...] by mouth 2 times daily . 09/26/2023 TRHWM2C-GPS-IKV-BMRV OIL ORAL Take by mouth 4 times daily. 04/10/2018 insulin aspart protamine-aspart (NovoLOG MIX 70-30) 100 unit/mL (70-30) pen syringe Inject by subcutaneous injection 8 units breakfast 14 units lunch 18 units dinner Also with sliding scale. 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 30 Tablet 3 12/11/2017 04/10/2018 Tmdnm2-DecJ7-A16-E-FA-F bossman Oil [phone] lv-zu-jjf-mcg Capsule Take 2 Caplets by mouth 2 [...] daily as needed for Anxiety . 06/18/2020 nuajuuj-spmill-yionhyyq DR (CREON 12) 60-12-38 capsule Take by mouth 3 times [...] Rockwell NP - 03/09/2018 5:41 AM CST [facility] Called for: RN reporting [...] system for vHospitalist calls. Submit an eTicket ITION SERVICES ASSOCIATE * Alize Morel, DO - 03/08/2018 1:15 PM CST [facility] Adult Hospitalist Progress Note Admit Date: [...] discussion of lab and test results. Pager: [phone] Alize Morel DO ITION SERVICES ASSOCIATE documented in this encounter H&P Notes * Pernell Tapia MD - 03/07/2018 11:12 PM CST [facility] Adult Hospitalist Admission H & P [...] told me that she has seen a employee development director at some point and was told that [...] 1 mg by mouth 2 times daily. OHQEJ1Y-WPF-YDG-ODJB OIL ORAL Yes No Sig: Take by mouth 4 times daily. 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 TAKE WITHOUT FOOD metFORMIN (GLUCOPHAGE) 500 mg [...] 99 mg/dL COMMENT, GLU POC Notified RN/MD FERMENTATION ENGINEER NAME ZURI MCCALL URINALYSIS WITH REFLEX [...] questions to their satisfaction. Pernell Tapia MD ITION SERVICES ASSOCIATE documented in this encounter Procedure Notes * Ceasar Vega MD - 03/08/2018 12:03 PM CSTAssociated Order(s): UPPER ENDOSCOPY REPORT [facility] Endoscopy Patient Name: Linda Doss Procedure Date: [...] signed electronically. Number of Addenda: 0 [phone] [facility]; [place] [address] ITION SERVICES ASSOCIATE documented in this encounter Consult Notes * Ceasar Vega MD - 03/08/2018 9:36 AM CSTAssociated Order(s): IP CONSULT TO GI Inpatient Consultation Note [facility] Consultation Note Patient: Linda Doss / 42 y.o. / female : 1975 Date: 03/08/2018 CSN: [id number] Referring Physician:No ref. provider found PCP: No [...] the hyperlipoidemia. She was cared for in [facility] subsequently at [facility]. She had stuttering symptoms throughout the summer. [...] have no access to care everywhere at [facility]. Current exacerbation started several days ago. She [...] mg by mouth 2 times daily. ??? egsquks-mmozzo-njoyursr DR MAGUIRE) 60-12-38 capsule Take by mouth 3 times [...] by mouth 2 times daily . ??? ABLSO3W-YLR-KFH-SYXE OIL ORAL Take by mouth 4 times daily. ??? traZODone (DESYREL) 100 mg tablet Take 100 mg by mouth. ??? insulin aspart protamine-aspart (NovoLOG MIX 70-30) 100 unit/mL (70-30) pen syringe Inject by subcutaneous injection 12 units breakfast 14 units lunch 20 units dinner Also with sliding scale. ??? 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 ) 30 Tab 0 [...] HX HYSTERECTOMY partial due to endometriosis 2007 Family History Problem Relation Age of Onset [...] of Iterative 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 DICTATION LOCATION: Location [address] [place] [address] Impression/Plan: 1) Hypertriglyceridemia history of associated pancreatitis. [...] endoscopy to evaluate for peptic ulcer disease, reflux. Then follow symptoms as triglycerides manage. Issue of delayed gastric emptying has been raised previously at [facility] per patient report. CT from last night does not show any gastric distention. We will attempt to obtain old records. Thank you very much for this consultation. Ceasar Vega MD [facility] Office: [phone] Pager: [phone] CC: No ref. provider found , No primary care provider on file. ITION SERVICES ASSOCIATE documented in this encounter OR Notes * Rebecca-OP - Awilda Pagan RN - 03/08/2018 10:45 AM CST Routine Pre-Anesthesia Protocol for GI Lab Procedures ?? [facility] ? ORDERS ARE ENTERED ???PER PROTOCOL? Enter the protocol in the patient???s electronic health record using EmboMedicsrase: .anestprotocolgilab ?? NURSING ORDERS: Monitoring: ?? Obtain [...] appropriate, may confirm POC with: Nursing Only [id number] (this lab can be obtained at no [...] MEDICATION ORDERS - entered by the Pharmacist network support specialist ? Meter Glucose less than 70, patient [...] Committee, Nursing Leadership, Pharmacy &??Therapeutics Committee ?Date:05/2017 ITION SERVICES ASSOCIATE documented in this encounter ED Notes * Jeff Enciso RN - 03/07/2018 6:30 PM CST Pt requesting more pain medication, will check w/ MD Lind. Otherwise, she continues to rest in stretcher while awaiting CT results. Will continue to monitor. ITION SERVICES ASSOCIATE * Jeff Enciso RN - 03/07/2018 6:00 PM CST Pt continues to rest in stretcher while awaiting CT scan. Reports significant relief in both nauseaand pain. Denies complaints and NAD noted. Visitor at bedside, call button within reach. Will continue to monitor. ITION SERVICES ASSOCIATE * Jeff Enciso RN - 03/07/2018 5:25 PM CST Pt medicated per JUN. Patient/family has been informed about benefits and any potential clinically significant side effects or other concerns regarding the administration of the drug they have just been given. NS infusing wide open. Awaiting CT scan. Will continue to monitor. ITION SERVICES ASSOCIATE * Jeff Enciso RN - 03/07/2018 4:57 [...] plan of care. Will continue to monitor. ITION SERVICES ASSOCIATE * Ambika Llanes RN - 03/07/2018 2:10 PM CST Emergency Department Adult Female Abdominal Pain Protocol [facility] ORDERS ARE ENTERED ???PER PROTOCOL?? Nursing Orders: o Insert peripheral IV (excessive vomiting or diarrhea) Laboratory Orders: o CBC with diff ([id number]) o CMP (LAB17) o If female of childbearing age: POC Urine HCG (POC7) or HCG Qualitative urine (RHZ615) if sending to lab o Urinalysis with Reflex Microscopy (TWJ538) o Serum HCG (if knowingly ) (AGY166) o Obtain serum lipase (LAB99) if upper abdominal pain o Draw and send extra tubes to lab (ED hold) ([id number]) Diagnostic Test Orders: o If RUQ pain, [...] by: Margarita Obando RN, BSN, YEFRI Nurse Binding End Stitcher Approved by: Medical Executive Committee, Nursing Leadershp, Pharmacy & Therapeutics Date:03/2017 ITION SERVICES ASSOCIATE * Puja Garcia RN - 03/07/2018 1:43 PM CST We promote safety at our facility and do not allow any type of weapon in the building. Do you have a weapon or something that could be used as a weapon on you today? denied possession of any weapons or firearms at this time. ITION SERVICES ASSOCIATE * Pernell Lind MD - 03/07/2018 1:36 [...] AM. No blood in stool. PCP: Dr. [facility] Cardiology: Dr. Mayer History provided by: [...] 1 mg by mouth 2 times daily. fsjzokv-jxbvij-zvdsgmif DR (AMELIA) 60-12-38 capsule Take by mouth 3 times daily. insulin glargine (LANTUS) 100 unit/mL injection Inject 28 Units by subcutaneous injection 2 times daily 28 units in the AM 38 units in the PM. niacin (NIACOR) 500 mg tablet Take 500 mg by mouth 2 times daily. pantoprazole (PROTONIX) 40 mg Tablet, Delayed Release (E.C.) Take 40 mg by mouth 2 times daily . SOHPJ1R-NNB-PDU-TEAJ OIL ORAL Take by mouth 4 times daily. traZODone (DESYREL) 100 mg tablet Take 100 mg by mouth. insulin aspart protamine-aspart (NovoLOG MIX 70-30) 100 unit/mL (70-30) pen syringe Inject by subcutaneous injection 12 units breakfast 14 units lunch 20 units dinner Also with sliding scale. 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 TAKE WITHOUTFOOD Qty: 30 Tab, Refills: 0 [...] PHYSICAL EXAM INITIAL VS BP: (!) 159/95 (03/07/181340), Heart Rate: 98 bpm (03/07/181340), Resp: 17 (03/07/181340), Temp:98.3 ??F (36.8 ??C) (03/07/181340), Temp src: Oral (03/07/181340), SpO2: 99 % (03/07/181340), Height: 5' 4 (162.6 cm) (03/07/181340), Weight: 89.8 kg (198 lb) (03/07/181340), BMI (Calculated): 33.97 (03/07/181340) No LMP recorded. Patient has had a [...] 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 DICTATION LOCATION: Location 1 - [facility] PROCEDURES Procedures MEDICAL DECISION MAKING AND [...] injection 10 mL 10 mL IV Given 03/07/2018 2018 morphine 4 mg/mL injection 4 mg 4 mg IV Given Current Discharge Medication List CONTINUE these medications which have NOT CHANGED Details naproxen sodium (ALEVE) 220 mg Tablet Take 220 mg by mouth 2 times daily as needed for Pain, Moderate. LORazepam (ATIVAN) 1 mg tablet Take 1 mg by mouth 2 times daily. mgyhyow-ogonmj-gbjdposk DR (CREON) 60-12-38 capsule Take by mouth [...] mg by mouth 2 times daily . AHXJX1P-TGA-GHJ-XDDY OIL ORAL Take by mouth 4 times daily. traZODone (DESYREL) 100 mg tablet Take 100 mg by mouth. insulin aspart protamine-aspart (NovoLOG MIX 70-30) 100 unit/mL (70-30) pen syringe Inject by subcutaneous injection 12 units breakfast 14 units lunch 20 units dinner Also with sliding scale. 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 TAKE WITHOUTFOOD Qty: 30 Tab, Refills: 0 [...] combined hyperlipidemia; Hypothyroidism LAST VS BP: 111/70 (03/08/1820), Heart Rate: 76 bpm (03/07/182208), Resp: 16 (03/08/1820), Temp: 97.7 ??F (36.5 ??C) (03/08/1820), Temp src: Oral (11/10/18 0021), SpO2: 93 % (03/08/18 002) CLINICAL IMPRESSION Final diagnoses: [R10.9] Abdominal pain, unspecified abdominal location (Primary) [E11.9, Z79.4] Type 2 diabetes mellitus without complication, with long-term current use of insulin [E78.1] Hypertriglyceridemia DISPOSITION, EDUCATION AND MEDICATION RECONCILIATION Medications reconciled. See after visit summary for patient education on discharged patients. ED Disposition ED Disposition Condition User Date/Time Comment Admit Stable Pernell Lind MD Fri Mar 07, 2018 7:48 PM ATTESTATION STATEMENTS This [...] and medical decision making performed by me. ITION SERVICES ASSOCIATE documented in this encounter Miscellaneous Notes * Care Plan - Sandeep Pope, RN - 03/09/2018 4:19 PM CST Results [...] to wait for dietary education. Ambulated off [facility] with family. ITION SERVICES ASSOCIATE * Care Plan - Alize Darling, CLAU - 03/09/2018 3:22 AM CST Pt remains AOx4, sleeping in between care. Pt less talkative this shift than last night. Pt remainson clear liquid diet. VSS, blood sugars stable, given apple juice x2 to keep from going hypoglycemic. Voiding per bathroom, urine clear yellow. No BM this shift. Up independently. Tolerating NS @ 75.Biopsy results still pending. ITION SERVICES ASSOCIATE * Care Plan - Harvey Rendon RN [...] when asked for comfort then patientc/o pain. ITION SERVICES ASSOCIATE * Care Plan - Alize Darling RN - 03/08/2018 7:51 AM CST Pt remains AOx4, sleeping between care. Using morphine to manage pain, and zofran and compazine to manage nausea.Pt up independently to BR, voiding in hat. VSS. ITION SERVICES ASSOCIATE * Care Plan - Alize Darling RN - 03/08/2018 1:01 AM CST Pt admitted to room 6367, oriented to bathroom, call light, phone, and television. Pt complaints ofpain and nausea, given morphine and compazine when available. Undress and assess, no skin breakdownnoted; one small scar on back R shoulder. Pt settled, all questions answered. Undress and Assess performed by: CLAU Herrmanndancing instructor or upon transfer to:[facility] ~~~~~~~~~~~~~~~~~~~~~~~~~~~~ Is the patient a paraplegic/quadriplegic? Does [...] removed from patient Yes Disposition of belongings/valuables: ITION SERVICES ASSOCIATE documented in this encounter Plan of Treatment Upcoming Encounters Date Type Department Care Team (Late st Contact Info) Description 09/14/2024 3:00 PM CDT Office Visit [facility] Heart and Vascular - [facility] [address] [place] [address] Marlys Mayer MD [address] [place] [address] documented as of this encounter Procedures Procedure Name Priority Date/Time Associated Diagnosis Comments POC GLUCOSE Routine 03/09/2018 1:50 PM NUTRITION SERVICES ASSOCIATE POC GLUCOSE Routine 03/09/2018 10:18 AM NUTRITION SERVICES ASSOCIATE CBC WITH DIFFERENTIAL Routine 03/09/2018 5:39 AM NUTRITION SERVICES ASSOCIATE TRIGLYCERIDE Routine 03/09/2018 5:39 AM NUTRITION SERVICES ASSOCIATE LIPASE Routine 03/09/2018 5:39 AM NUTRITION SERVICES ASSOCIATE COMPREHENSIVE METABOLIC PANEL Routine 5:39 AM NUTRITION SERVICES ASSOCIATE POC GLUCOSE Routine 03/09/2018 5:27 AM NUTRITION SERVICES ASSOCIATE POC GLUCOSE Routine 03/09/2018 12:33 AM NUTRITION SERVICES ASSOCIATE POC GLUCOSE Routine 03/08/2018 9:17 PM NUTRITION SERVICES ASSOCIATE POC GLUCOSE Routine 03/08/2018 6:22 PM NUTRITION SERVICES ASSOCIATE POC GLUCOSE Routine 03/08/2018 2:26 PM NUTRITION SERVICES ASSOCIATE TRIGLYCERIDE Stat 03/08/2018 1:02 PM NUTRITION SERVICES ASSOCIATE UPPER ENDOSCOPY REPORT 8 12:04 PM NUTRITION SERVICES ASSOCIATE PATHOLOGY Pathology 03/08/2018 11:55 AM NUTRITION SERVICES ASSOCIATE ESOPHAGOGASTRODUODENOSCOPY 03/08 11:37 AM NUTRITION SERVICES ASSOCIATE POC GLUCOSE Routine 03/08/2018 10:54 AM NUTRITION SERVICES ASSOCIATE POC GLUCOSE Routine 03/08/2018 10:13 AM NUTRITION SERVICES ASSOCIATE POC GLUCOSE Routine 03/08/2018 8:01 AM NUTRITION SERVICES ASSOCIATE CBC WITH DIFFERENTIAL Routine 03/08/2018 5:15 AM NUTRITION SERVICES ASSOCIATE LIPASE Routine 03/08/2018 5:15 AM NUTRITION SERVICES ASSOCIATE HEMOGLOBIN A1C Routine 03/08/2018 5:15 AM NUTRITION SERVICES ASSOCIATE LIPID PANEL Routine 03/08/2018 5:15 AM NUTRITION SERVICES ASSOCIATE BASIC METABOLIC PANEL Routine 03/08/2018 5:15 AM NUTRITION SERVICES ASSOCIATE POC GLUCOSE Routine 03/08/2018 3:23 AM NUTRITION SERVICES ASSOCIATE URINALYSIS W/REFLEX MICROSCOPIC Stat 03/07/2018 11:04 PM NUTRITION SERVICES ASSOCIATE POC GLUCOSE Routine 03/07/2018 10:[address] ABDOMEN PELVIS W CONTRAST Stat 12/2017 6:24 PM NUTRITION SERVICES ASSOCIATE CBC WITH DIFFERENTIAL Stat 03/07/2018 2:15 PM NUTRITION SERVICES ASSOCIATE LIPASE Stat 03/07/2018 2:15 PM NUTRITION SERVICES ASSOCIATE COMPREHENSIVE METABOLIC PANEL Stat 2:15 PM NUTRITION SERVICES ASSOCIATE documented in this encounter Results * (ABNORMAL) POC GLUCOSE (03/09/2018 1:50 PM NUTRITION SERVICES ASSOCIATE) GLUCOSE POC 123(H) 74 - 99 mg/dL 03/09/2018 2:07 PM NUTRITION SERVICES ASSOCIATE [facility] LABORATORY SERVICES [facility] COMMENT, GLU POC Notified RN/MD 03/09/2018 2:07 PM NUTRITION SERVICES ASSOCIATE [facility] LABORATORY SERVICES [facility] FERMENTATION ENGINEER NAME POC STEPHON MIRELES 03/09/2018 2:07 PM NUTRITION SERVICES ASSOCIATE [facility] LABORATORY SERVICES [facility] Whole blood specimen (specimen) 03/09/2018 1:50 PM NUTRITION SERVICES ASSOCIATE 03/09/2018 2:07 PM NUTRITION SERVICES ASSOCIATE Alize Morel DO POINT OF CARE TESTIN G [facility] Red-M Group [facility]# [id number] [address] [facility] [place] [address] * POC GLUCOSE (03/09/2018 10:18 AM NUTRITION SERVICES ASSOCIATE) GLUCOSE POC 85 74 - 99 mg/dL 03/09/2018 10:42 AM NUTRITION SERVICES ASSOCIATE [facility] LABORATORY SERVICES [facility] FERMENTATION ENGINEER NAME POC SANDEEP POPE 03/09/2018 10:42 AM NUTRITION SERVICES ASSOCIATE [facility] LABORATORY SERVICES [facility] Whole blood specimen (specimen) 03/09/2018 10:18 AM NUTRITION SERVICES ASSOCIATE 03/09/2018 10:42 AM NUTRITION SERVICES ASSOCIATE Alize Morel DO POINT OF CARE TESTIN G [facility] CLIA# [id number] [address] [place] [address] * LIPASE (03/09/2018 5:39 AM NUTRITION SERVICES ASSOCIATE) LIPASE 16 13 - 60 U/L 03/09/2018 7:10 AM [facility] [employer] LABORATORY SERVICES [facility] Blood 03/09/2018 5:39 AM NUTRITION SERVICES ASSOCIATE 03/09/2018 6:24 AM NUTRITION SERVICES ASSOCIATE Alize Morel DO CHEMISTRY ORDERABLES Performing Organization Address [facility]/ZIP Co de Phone Number [facility] LABORATORY [facility] CLIA# [id number] [address] [place] [address] * CBC WITH DIFFERENTIAL (03/09/2018 5:39 AM NUTRITION SERVICES ASSOCIATE) WBC 5.3 4.0 - 9.8 K/uL 03/09/2018 6:44 AM NUTRITION SERVICES ASSOCIATE [employer] LABORATORY SERVICES - [facility] RBC 4.06 3.90 - 4.90 M/uL 03/09/2018 6:44 AM NUTRITION SERVICES ASSOCIATE [employer] [facility]ORAT[facility] SERVICES - [facility] HEMOGLOBIN 12.1 11.8 - 14.8 g/dL 03/09/2018 6:44 AM NUTRITION SERVICES ASSOCIATE [employer] [facility]ORATORY SERVICES - [facility] HEMATOCRIT 37.6 35.5 - 44.0 % 03/09/2018 6:44 AM NUTRITION SERVICES ASSOCIATE [employer] [facility]ORAT[facility] SERVICES - [facility] MCV 92.6 82.0 - 99.0 fL 03/09/2018 6:44 AM NUTRITION SERVICES ASSOCIATE [employer] [facility]ORAT[facility] SERVICES - [facility] MCH 29.8 27.2 - 32.6 pg 03/09/2018 6:44 AM NUTRITION SERVICES ASSOCIATE [employer] LABORATORY SERVICES - [facility] MCHC 32.2 31.5 - 35.5 g/dL 03/09/2018 6:44 AM NUTRITION SERVICES ASSOCIATE [employer] [facility]ORATORY SERVICES - [facility] RDW 13.7 11.5 - 14.5 % 03/09/2018 6:44 AM NUTRITION SERVICES ASSOCIATE [employer] [facility] - [facility] RDW-STDEV 46.6 37.1 - 48.7 fL 03/09/2018 6:44 AM [facility] [employer] [facility] - [facility] PLATELETS 242 140 - 350 K/uL 03/09/2018 6:44 AM [facility] [employer] [facility] - [facility] MPV 9.3 9.3 - 12.4 fL 03/09/2018 6:44 AM [facility] [employer] - [facility] NEUTROPHILS 49 % 03/09/2018 6:44 AM [facility] [employer] [facility] - [facility] LYMPHOCYTES 43 % 03/09/2018 6:44 AM NUTRITION SERVICES ASSOCIATE [employer] [facility] SERVICES - [facility] MONOCYTES 6 % 03/09/2018 6:44 AM NUTRITION SERVICES ASSOCIATE [employer] [facility] - [facility] EOSINOPHILS 1 % 03/09/2018 6:44 AM [facility] [employer] [facility] - [facility] BASOPHILS 1 % 03/09/2018 6:44 AM [facility] [employer] - [facility] IMMATURE GRANULOCYTES 0 % 03/09/2018 6:44 AM [facility] [employer] - [facility] NEUTROPHIL ABSOLUTE 2.59 1.90 - 7.00 K/uL 03/09/2018 6:44 AM [facility] [employer] [facility] - [facility] [facility] LYMPHOCYTE ABSOLUTE 2.23 0.70 - 4.50 K/uL 03/09/2018 6:44 AM [facility] [employer] - [facility] MONOCYTE ABSOLUTE 0.31 0.10 - 1.30 K/uL 03/09/2018 6:44 AM NUTRITION SERVICES ASSOCIATE [employer] - [facility] EOSINOPHIL ABSOLUTE 0.07 0.00 - 0.70 K/uL 03/09/2018 6:44 AM NUTRITION SERVICES ASSOCIATE [employer] - [facility] BASOPHILS ABSOLUTE 0.03 0.00 - 0.20 K/uL 03/09/2018 6:44 AM [employer] - [facility] IMMATURE GRANULOCYTES ABSOLUTE 0.02 0.00 - 0.03 K/uL 03/09/2018 6:44 AM [employer] - [facility] Blood 03/09/2018 5:39 AM NUTRITION SERVICES ASSOCIATE 03/09/2018 6:24 AM NUTRITION SERVICES ASSOCIATE Ceasar Vega MD HEMATOLOGY ORDERABLE S [facility]# [id number] [address] [place] [address] * (ABNORMAL) TRIGLYCERIDE (03/09/2018 5:39 AM NUTRITION SERVICES ASSOCIATE) Pathologist [facility] TRIGLYCERIDE 2,339(H) <150 mg/dL 03/09/2018 7:22 AM [facility] Blood 03/09/2018 5:39 AM NUTRITION SERVICES ASSOCIATE 03/09/2018 6:24 AM NUTRITION SERVICES ASSOCIATE [facility] - 03/09/2018 7:22 AM NUTRITION SERVICES ASSOCIATE TRIGLYCERIDES ? mg/dL Normal ?< 150 Borderline High ?150 - 199 High ? 200 - 499 Very High ? >= 500 Based on AHA/NCEP Guidelines. Alize Morel DO CHEMISTRY ORDERABLES [facility] [employer] [facility] [id number] [address] [place] [address] * (ABNORMAL) COMPREHENSIVE METABOLIC PANEL (03/09/2018 5:39 AM NUTRITION SERVICES ASSOCIATE) Pathologist [facility] SODIUM 137 136 - 145 mmol/L 03/09/2018 7:10 AM [facility] [employer] LABORATORY SERVICES - . [facility] POTASSIUM 3.8 3.5 - 5.0 mmol/L 03/09/2018 7:10 AM [facility] [employer] [facility]ORATORY SERVICES - . [facility] CHLORIDE 101 98 - 107 mmol/L 03/09/2018 7:10 AM [facility] [employer] [facility]ORAT[facility] SERVICES - . [facility] CO2 22 22 - 29 mmol/L 03/09/2018 7:10 AM [facility] [employer] LABORAT[facility] - . [facility] CALCIUM 8.6 8.6 - 10.2 mg/dL 03/09/2018 7:10 AM [facility] [employer] LABORATORY SERVICES - . [facility] BUN 5(L) 6 - 20 mg/dL 03/09/2018 7:10 AM [facility] [employer] [facility]OR[facility] - . [facility] CREATININE 0.56 0.51 - 0.95 mg/dL 03/09/2018 7:10 AM NUTRITION SERVICES ASSOCIATE [employer] [facility]OR[facility] - . [facility] GLUCOSE 85 74 - 99 mg/dL 03/09/2018 7:10 AM [facility] [employer] [facility]OR[facility] SERVICES - . [facility] TOTAL PROTEIN 5.9(L) 6.7 - 8.6 g/dL 03/09/2018 7:10 AM [facility] [employer] LABORATORY SERVICES - . [facility] ALBUMIN 3.9 3.5 - 5.2 g/dL 03/09/2018 7:10 AM [facility] [employer] LABORATORY SERVICES - . [facility] BILIRUBIN TOTAL 0.3 0.3 - 1.2 mg/dL 03/09/2018 7:10 AM [facility] [employer] LABORATORY SERVICES - . [facility] ALKALINE PHOSPHATASE 49 35 - 104 U/L 03/09/2018 7:10 AM [facility] [employer] LABORATORY SERVICES - . [facility] AST 14 <33 U/L 03/09/2018 7:10 AM [facility] [employer] LABORATORY SERVICES - . [facility] ALT 9 <34 U/L 03/09/2018 7:10 AM [facility] [employer] LABORATORY SERVICES [facility] GFR >60 >=60 mL/min/1.7 3 sq meter 03/09/2018 7:10 AM [facility] SERVICES [facility] Comment: eGFR has not been [...] mL/min/1.7 3 sq meter 03/09/2018 7:10 AM NUTRITION SERVICES ASSOCIATE [employer] LABORATORY SERVICES - . [facility] ANION GAP 14 8 - 16 mmol/L 03/09/2018 7:10 AM [facility] [employer] LABORATORY SERVICES [facility] Blood 03/09/2018 5:39 AM NUTRITION SERVICES ASSOCIATE 03/09/2018 6:24 AM [facility] [employer] LABORATORY SERVICES [facility] - 03/09/2018 7:10 AM NUTRITION SERVICES ASSOCIATE Samples containing indocyanine green cause interferences on Total and/or Direct Bilirubin and must not be measured. Alize Morel DO CHEMISTRY ORDERABLES Performing Organization Address [facility] Co de Phone Number [facility]# [id number] [address] [place] [address] * POC GLUCOSE (03/09/2018 5:27 AM NUTRITION SERVICES ASSOCIATE) GLUCOSE POC 75 74 - 99 mg/dL 03/09/2018 5:46 AM NUTRITION SERVICES ASSOCIATE [facility] LABORATORY [facility] FERMENTATION ENGINEER NAME ALIZE CANTU 03/09/2018 5:46 AM NUTRITION SERVICES ASSOCIATE [facility] LABORATORY [facility] Whole blood specimen (specimen) 03/09/2018 5:27 AM NUTRITION SERVICES ASSOCIATE 03/09/2018 5:46 AM NUTRITION SERVICES ASSOCIATE Alize Morel POINT OF CARE TESTIN Maggie Performing Organization Address [facility] Phone Number [facility] [employer] [facility]# [id number] [address] [place] [address] * POC GLUCOSE (03/09/2018 12:33 AM NUTRITION SERVICES ASSOCIATE) GLUCOSE POC 86 74 - 99 mg/dL 03/09/2018 12:48 AM NUTRITION SERVICES ASSOCIATE [facility] LABORATORY [facility] FERMENTATION ENGINEER NAME ALIZE CANTU 03/09/2018 12:48 AM NUTRITION SERVICES ASSOCIATE [facility] LABORATORY [facility] Whole blood specimen (specimen) 03/09/2018 12:33 AM NUTRITION SERVICES ASSOCIATE 03/09/2018 12:48 AM NUTRITION SERVICES ASSOCIATE Alize Morel DO POINT OF CARE VINICIUSIN Maggie Performing Organization Address City/[facility]/ZIP Co de Phone Number [facility] [employer] [facility]# [id number] [address] [place] [address] * POC GLUCOSE (03/08/2018 9:17 PM NUTRITION SERVICES ASSOCIATE) GLUCOSE POC 92 74 - 99 mg/dL 03/08/2018 9:35 PM NUTRITION SERVICES ASSOCIATE [facility] LABORATORY [facility] FERMENTATION ENGINEER NAME POC ALIZE DARLING 03/08/2018 9:35 PM NUTRITION SERVICES ASSOCIATE [facility] LABORATORY [facility] Whole blood specimen (specimen) 03/08/2018 9:17 PM NUTRITION SERVICES ASSOCIATE 03/08/2018 9:35 PM NUTRITION SERVICES ASSOCIATE Alize Morel DO POINT OF CARE TESTIN Maggie Performing Organization Address [facility] de Phone Number [facility]# [id number] [address] [facility] [place] [address] * POC GLUCOSE (03/08/2018 6:22 PM NUTRITION SERVICES ASSOCIATE) GLUCOSE POC 76 74 - 99 mg/dL 03/08/2018 6:35 PM NUTRITION SERVICES ASSOCIATE [facility] LABORATORY [facility] FERMENTATION ENGINEER NAME POC NICOLÁS RENDONMMA (ELI) 03/08/2018 6:35 PM NUTRITION SERVICES ASSOCIATE [facility] LABORATORY [facility] Whole blood specimen (specimen) 03/08/2018 6:22 PM NUTRITION SERVICES ASSOCIATE 03/08/2018 6:35 PM NUTRITION SERVICES ASSOCIATE Alize Morel DO POINT OF CARE TESTIN Maggie Performing Organization Address [facility] Phone Number [facility]# [id number] [address] [place] [address] * POC GLUCOSE (03/08/2018 2:26 PM NUTRITION SERVICES ASSOCIATE) GLUCOSE POC 92 74 - 99 mg/dL 03/08/2018 2:42 PM NUTRITION SERVICES ASSOCIATE [facility] LABORATORY [facility] FERMENTATION ENGINEER NAME POC ANNETTA HARVEY (ELI) 03/08/2018 2:42 PM NUTRITION SERVICES ASSOCIATE [facility] LABORATORY [facility] Whole blood specimen (specimen) 03/08/2018 2:26 PM NUTRITION SERVICES ASSOCIATE 03/08/2018 2:42 PM NUTRITION SERVICES ASSOCIATE Alize Morel DO POINT OF CARE TESTIN Maggie Performing Organization Address [facility]/ZIP Co de Phone Number [facility]# [id number] [address] [place] [address] * (ABNORMAL) TRIGLYCERIDE (03/08/2018 1:02 PM NUTRITION SERVICES ASSOCIATE) TRIGLYCERIDE 2,887(H) <150 mg/dL 03/08/2018 2:32 PM NUTRITION SERVICES ASSOCIATE [facility] Blood BLOOD SPECIMEN / Unknown Venipuncture / Unknown 03/08/2018 1:02 PM NUTRITION SERVICES ASSOCIATE 03/08/2018 1:47 PM NUTRITION SERVICES ASSOCIATE Narrative [facility] - 03/08/2018 2:32 PM NUTRITION SERVICES ASSOCIATE TRIGLYCERIDES ? mg/dL Normal ?< 150 Borderline High ?150 - 199 High ? 200 - 499 Very High ? >= 500 Based on AHA/NCEP Guidelines. Ceasar Vega MD CHEMISTRY ORDERABLES [facility]# [id number] [address] [place] [address] * UPPER ENDOSCOPY REPORT (03/08/2018 12:04 PM NUTRITION SERVICES ASSOCIATE) Narrative Procedure Note Ceasar Vega MD - 03/08/2018 12:03 PM CST [facility] Endoscopy Patient Name: Linda Doss Procedure Date: [...] signed electronically. Number of Addenda: [address]; [place] [address] Ceasar Vega MD GI PROCEDURE ORDERAB LES * PATHOLOGY (03/08/2018 11:55 AM NUTRITION SERVICES ASSOCIATE) CASE REPORT Surgical Pathology Report ? Case: [id number] ? Authorizing Provider: ??Ceasar Vega MD ?Collected: ? 03/08/2018 11:55 AM ? Ordering Location: ? [facility] [address] ??Received: ?03/10/2018 09:09 AM ? Pathologist: ? Jam Montgomery, DO ? Specimen: ?Stomach, bx ? 03/11/2018 5:47 PM [facility] FINAL DIAGNOSIS Stomach, endoscopic biopsy: - Mild chronic gastritis. 03/11/2018 5:47 PM [facility] [employer] [facility] IMEN DESCRIPTION Stomach biopsy. 03/11/2018 5:47 PM [facility] [employer] [facility] OPERATIVE PROCEDURE Esophagogastroduodeno scopy. 03/11/2018 5:47 PM [facility] [employer] [facility] CLINICAL DIAGNOSIS Rule out H. pylori infection. 03/11/2018 5:47 PM [facility] [employer] [facility] GROSS DESCRIPTION The specimen is received in a single container labeled Linda Doss, stomach biopsy and consists of seven pieces of white tissue that are 0.1 to 0.4 cm in greatest dimension. The entire specimen is submitted in cassette A1. [facility]/dony 03/11/2018 5:47 PM [facility] [employer] [facility] MICROSCOPIC DESCRIPTION The slides are received labeled [id number] and Linda Doss Sections of the stomach biopsy show fragments [...] contaminant, possible esophageal mucosa. 03/11/2018 5:47 PM NUTRITION SERVICES ASSOCIATE [facility] COMMENT Special stain and/or immunohistochemical results are interpreted with controls that demonstrate appropriate staining reactions. Note on use of immunocytochemistry reagents: This test was developed and its performance characteristic determined by [facility], Department of Laboratory Medicine. It has not [...] WF, WB and WH are performed by [address], [address]. All other case types are performed by [facility] [address] [facility] [address]. 03/11/2018 5:47 PM [facility] Tissue ENTIRE STOMACH / Unknown Collection / Unknown 03/08/2018 11:55 AM NUTRITION SERVICES ASSOCIATE 03/10/2018 9:09 AM NUTRITION SERVICES ASSOCIATE Comment:Gastritis, r/o h.pyl miguel Ceasar Vega MD PATHOLOGY/CYTOLOGY O RDERABLES [facility] CLIA# [id number] [address] [address] [facility] [address] [place] [address] * (ABNORMAL) POC GLUCOSE (03/08/2018 10:54 AM NUTRITION SERVICES ASSOCIATE) GLUCOSE POC 114(H) 74 - 99 mg/dL 03/08/2018 11:07 AM NUTRITION SERVICES ASSOCIATE [facility] FERMENTATION ENGINEER NAME POC AWILDA PAGAN 03/08/2018 11:07 AM NUTRITION SERVICES ASSOCIATE [facility] Whole blood specimen (specimen) 03/08/2018 10:54 AM NUTRITION SERVICES ASSOCIATE 03/08/2018 11:07 AM NUTRITION SERVICES ASSOCIATE Alize Morel DO POINT OF CARE TESTIN G Performing Organization Address [facility]/ZIP Co de Phone Number [facility] CLIA# [id number] [address] [place] [address] * (ABNORMAL) POC GLUCOSE (03/08/2018 10:13 AM NUTRITION SERVICES ASSOCIATE) GLUCOSE POC 114(H) 74 - 99 mg/dL 03/08/2018 10:28 AM [facility] LABORATORY [facility] COMMENT, GLU POC Notified RN/MD 03/08/2018 10:28 AM [facility] LABORATORY [facility] FERMENTATION ENGINEER NAME POC JEFF BLOOD 03/08/2018 10:28 AM [facility] LABORATORY SERVICES [facility] Whole blood specimen (specimen) 03/08/2018 10:13 AM NUTRITION SERVICES ASSOCIATE 03/08/2018 10:28 AM NUTRITION SERVICES ASSOCIATE Alize Morel DO POINT OF CARE TESTJERONIMO Maggie Performing Organization Address [facility]/ZIP Co de Phone Number [facility] CLIA# [id number] [address] [place] [place] [address] * (ABNORMAL) POC GLUCOSE (03/08/2018 8:01 AM NUTRITION SERVICES ASSOCIATE) GLUCOSE POC 129(H) 74 - 99 mg/dL 03/08/2018 8:26 AM [facility] LABORATORY [facility] FERMENTATION ENGINEER NAME POC HARVEY RENDON (ELI) 03/08/2018 8:26 AM NUTRITION SERVICES ASSOCIATE [facility] LABORATORY [facility] Whole blood specimen (specimen) 03/08/2018 8:01 AM NUTRITION SERVICES ASSOCIATE 03/08/2018 8:25 AM NUTRITION SERVICES ASSOCIATE Alize Morel DO POINT OF CARE TESTJERONIMO Maggie Performing Organization Address City/[facility]/ZIP Co de Phone Number [facility] CLIA# [id number] [address] [place] [address] * (ABNORMAL) HEMOGLOBIN A1C (03/08/2018 5:15 AM NUTRITION SERVICES ASSOCIATE) HEMOGLOBIN A1C 8.7(H) <5.7 % 03/08/2018 10:47 AM NUTRITION SERVICES ASSOCIATE [facility] LABORATORY SERVICES [facility] EST. AVG GLUCOSE, A1C 203 mg/dL 03/08/2018 10:47 AM [facility] [employer] [facility] Blood Venipuncture / Unknown 03/08/2018 5:15 AM NUTRITION SERVICES ASSOCIATE 03/08/2018 5:59 AM NUTRITION SERVICES ASSOCIATE Narrative [facility] LABORATORY [facility] - 03/08/2018 10:47 AM NUTRITION SERVICES ASSOCIATE HGB A1C INTERPRETATION NORMAL: ? <5.7% PRE-DIABETES: 5.7 - 6.4% DIABETES: ? 6.5% OR GREATER Alize Morel CHEMISTRY ORDERABLES Performing Organization Address City/[facility]/ZIP Co de Phone Number [facility] [employer] [facility] CLIA# [id number] [address] [place] [address] * LIPASE (03/08/2018 5:15 AM NUTRITION SERVICES ASSOCIATE) LIPASE 16 13 - 60 U/L 03/08/2018 8:15 AM [facility] [employer] [facility] Blood Venipuncture / Unknown 03/08/2018 5:15 AM NUTRITION SERVICES ASSOCIATE 03/08/2018 5:59 AM NUTRITION SERVICES ASSOCIATE Alize Morel DO CHEMISTRY ORDERABLES Performing Organization Address [facility] Co de Phone Number [facility]# [id number] [address] [place] [address] * (ABNORMAL) BASIC METABOLIC PANEL (03/08/2018 5:15 AM NUTRITION SERVICES ASSOCIATE) SODIUM 135(L) 136 - 145 mmol/L 03/08/2018 6:50 AM [facility] LABORATORY [facility] POTASSIUM 4.0 3.5 - 5.0 mmol/L 03/08/2018 6:50 AM [facility] [employer] LABORATORY [facility] Comment: Slightly hemolyzed. Result may be falsely elevated. CHLORIDE 96(L) 98 - 107 mmol/L 03/08/2018 6:50 AM [facility] [employer] LABORATORY [facility] CO2 22 22 - 29 mmol/L 03/08/2018 6:50 AM [facility] CALCIUM 8.4(L) 8.6 - 10.2 mg/dL 03/08/2018 6:50 AM [facility] BUN 9 6 - 20 mg/dL 03/08/2018 6:50 AM [facility] CREATININE 0.53 0.51 - 0.95 mg/dL 03/08/2018 6:50 AM [facility] GLUCOSE 117(H) 74 - 99 mg/dL 03/08/2018 6:50 AM [facility] GFR >60 >=60 mL/min/1.7 3 sq meter 03/08/2018 6:50 AM [facility] [employer] [facility] Comment: eGFR has not been validated for [...] mL/min/1.7 3 sq meter 03/08/2018 6:50 AM [facility] [employer] [facility] ANION GAP 17(H) 8 - 16 mmol/L 03/08/2018 6:50 AM [facility] [employer] [facility] Blood Venipuncture / Unknown 03/08/2018 5:15 AM NUTRITION SERVICES ASSOCIATE 03/08/2018 5:59 AM NUTRITION SERVICES ASSOCIATE Ceasar Vega MD CHEMISTRY ORDERABLES [facility] [id number] [address] [facility] [address] [place] [address] * (ABNORMAL) CBC WITH DIFFERENTIAL (03/08/2018 5:15 AM NUTRITION SERVICES ASSOCIATE) WBC 6.6 4.0 - 9.8 K/uL 03/08/2018 6:23 AM [facility] LABORATORY SERVICES - [facility] RBC 4.10 3.90 - 4.90 M/uL 03/08/2018 6:23 AM [facility] [employer] LABORATORY SERVICES - [facility] HEMOGLOBIN 12.4 11.8 - 14.8 g/dL 03/08/2018 6:23 AM [facility] [employer] LABORATORY SERVICES - [facility] HEMATOCRIT 38.0 35.5 - 44.0 % 03/08/2018 6:23 AM NUTRITION SERVICES ASSOCIATE [employer] [facility]ORATORY SERVICES - [facility] MCV 92.7 82.0 - 99.0 fL 03/08/2018 6:23 AM NUTRITION SERVICES ASSOCIATE [employer] [facility]ORATORY SERVICES - [facility] MCH 30.2 27.2 - 32.6 pg 03/08/2018 6:23 AM [facility] LABORATORY SERVICES - [facility] MCHC 32.6 31.5 - 35.5 g/dL 03/08/2018 6:23 AM [facility] [employer] LABORATORY SERVICES - [facility] RDW 13.7 11.5 - 14.5 % 03/08/2018 6:23 AM [facility] LABORATORY SERVICES - . [facility] RDW-STDEV 46.6 37.1 - 48.7 fL 03/08/2018 6:23 AM [facility]ORATORY SERVICES - [facility] PLATELETS 259 140 - 350 K/uL 03/08/2018 6:23 AM [facility] LABORATORY SERVICES - . [facility] MPV 9.2(L) 9.3 - 12.4 fL 03/08/2018 6:23 AM NUTRITION SERVICES ASSOCIATE [employer] [facility]ORATORY SERVICES - [facility] NEUTROPHILS 48 % 03/08/2018 6:23 AM [facility]ATORY SERVICES - [facility] LYMPHOCYTES 44 % 03/08/2018 6:23 AM [facility] MONOCYTES 6 % 03/08/2018 6:23 AM [facility] EOSINOPHILS 1 % 03/08/2018 6:23 AM [facility] SERVICES [facility] BASOPHILS 0 % 03/08/2018 6:23 AM [facility]ORY SERVICES - [facility] IMMATURE GRANULOCYTES 1 % 03/08/2018 6:23 AM [facility] Comment:IG (Immature Granulo cyte) count includes Metamyelocytes, Myelocytes, and Promyelocytes NEUTROPHIL ABSOLUTE 3.19 1.90 - 7.00 K/uL 03/08/2018 6:23 AM [facility] LABORATORY SERVICES - [facility] LYMPHOCYTE ABSOLUTE 2.93 0.70 - 4.50 K/uL 03/08/2018 6:23 AM [facility] LABORATORY [facility] MONOCYTE ABSOLUTE 0.39 0.10 - 1.30 K/uL 03/08/2018 6:23 AM [facility] EOSINOPHIL ABSOLUTE 0.07 0.00 - 0.70 K/uL 03/08/2018 6:23 AM [facility] [employer] [facility] BASOPHILS ABSOLUTE 0.02 0.00 - 0.20 K/uL 03/08/2018 6:23 AM [facility] [employer] [facility] IMMATURE GRANULOCYTES ABSOLUTE 0.04(H) 0.00 - 0.03 K/uL 03/08/2018 6:23 AM [facility] [employer] [facility] Blood Venipuncture / Unknown 03/08/2018 5:15 AM NUTRITION SERVICES ASSOCIATE 03/08/2018 5:59 AM NUTRITION SERVICES ASSOCIATE Ceasar Vega MD HEMATOLOGY ORDERABLE S [facility] [id number] [address] [facility] [place] [place] [address] * (ABNORMAL) LIPID PANEL (03/08/2018 5:15 AM NUTRITION SERVICES ASSOCIATE) CHOLESTEROL 635(H) <200 mg/dL 03/08/2018 7:01 AM [facility] TRIGLYCERIDE 2,964(H) <150 mg/dL 03/08/2018 7:01 AM [facility] [employer] [facility] HDL 40 - 59 mg/dL 03/08/2018 7:01 AM [facility] [employer] [facility] Comment: Measured HDL is not accurate when the Triglyceride value exceeds 1200. LDL CALCULATED <100 mg/dL 03/08/2018 7:01 AM [facility] [employer] [facility] Comment:Calculated LDL is no t accurate when the Triglyceride value exceeds 400. NON-HDL CHOLESTEROL <130 mg/dL 03/08/2018 7:01 AM [facility] [employer] [facility] Comment:Non HDL Cholesterol cannot be calculated when the HDL value is suppressed. Blood Venipuncture / Unknown 03/08/2018 5:15 AM NUTRITION SERVICES ASSOCIATE 03/08/2018 5:59 AM NUTRITION SERVICES ASSOCIATE Narrative [facility] - 03/08/2018 7:01 AM NUTRITION SERVICES ASSOCIATE TOTAL CHOLESTEROL ??mg/dL ??Desirable <200 ??Borderline high [...] Panels (NCEP/AMA) Pernell Tapia MD CHEMISTRY ORDERABLES Performing Organization Address City/[facility]/ZIP Co de Phone Number [facility]# [id number] [address] [place], [place] [address] * (ABNORMAL) POC GLUCOSE (03/08/2018 3:23 AM NUTRITION SERVICES ASSOCIATE) Pathologist [facility] GLUCOSE POC 138(H) 74 - 99 mg/dL 03/08/2018 3:36 AM [facility] FERMENTATION ENGINEER NAME POC CONSTANTINO DEL CID 03/08/2018 3:36 AM [facility] Whole blood specimen (specimen) 03/08/2018 3:23 AM NUTRITION SERVICES ASSOCIATE 03/08/2018 3:36 AM NUTRITION SERVICES ASSOCIATE Pernell Tapia MD POINT OF CARE TESTIN G [facility]# [id number] [address] [place] [address] * (ABNORMAL) URINALYSIS WITH REFLEX MICROSCOPIC (03/07/2018 11:04 PM NUTRITION SERVICES ASSOCIATE) COLOR UA Yellow Pale to Dark Yellow 03/07/2018 11:23 PM [facility] LABORATORY [facility] CLARITY UA Clear Clear 03/07/2018 11:23 PM [facility] LABORATORY [facility] SPECIFIC GRAVITY UA >1.035(H) 1.003 - 1.035 03/07/2018 11:23 PM [facility] LABORATORY [facility] PH UA 5.0 5.0 - 8.0 03/07/2018 11:23 PM [facility] LABORATORY [facility] LEUKOCYTE ESTERASE UA Negative Negative 03/07/2018 11:23 PM [facility] [employer] [facility] NITRITE UA Negative Negative 03/07/2018 11:23 PM [facility] [employer] [facility] PROTEIN UA Negative Negative 03/07/2018 11:23 PM [facility] [employer] [facility] GLUCOSE UA Negative Negative 03/07/2018 11:23 PM [facility] [employer] [facility] KETONES UA Negative Negative 03/07/2018 11:23 PM [facility] [employer] [facility] UROBILINOGEN UA Normal <2.0 mg/dL 8 11:23 PM [facility] [employer] [facility] BILIRUBIN UA Negative Negative 03/07/2018 11:23 PM [facility] [employer] [facility] BLOOD UA Negative Negative 03/07/2018 11:23 PM [facility] [employer] [facility] Urine URINE SPECIMEN OBTAINED BY CLEAN CATCH PROCEDURE / Unknown Collection / Unknown 03/07/2018 11:04 PM [employer] 03/07/2018 11:11 PM [employer] Pernell Lind MD URINE ORDERABLES [facility] [employer] [place] [facility] CENTERIA# [id number] 5 [facility] [place] [address] * (ABNORMAL) POC GLUCOSE (03/07/2018 10:58 PM NUTRITION SERVICES ASSOCIATE) GLUCOSE POC 130(H) 74 - 99 mg/dL 03/07/2018 11:19 PM NUTRITION SERVICES ASSOCIATE [facility] LABORATORY SERVICES [facility] COMMENT, GLU POC Notified RN/ 03/07/2018 11:19 PM NUTRITION SERVICES ASSOCIATE [facility] LABORATORY SERVICES - . [facility] FERMENTATION ENGINEER NAME POC ZURI MCCALL 03/07/2018 11:19 PM NUTRITION SERVICES ASSOCIATE [facility] LABORATORY [facility] Whole blood specimen (specimen) 03/07/2018 10:58 PM NUTRITION SERVICES ASSOCIATE 03/07/2018 11:19 PM NUTRITION SERVICES ASSOCIATE Almas Ortega MD POINT OF CARE TESTIN G [facility] CLIA# [id number] [address] [facility] [place] [address] * CT ABDOMEN PELVIS W CONTRAST (03/07/2018 6:24 PM NUTRITION SERVICES ASSOCIATE) Anatomical Region Laterality Modality Abdomen Computed Tomogra phy 03/07/2018 6:24 PM NUTRITION SERVICES ASSOCIATE Impressions 03/08/2018 1:23 PM NUTRITION SERVICES ASSOCIATE IMPRESSION: Status post hysterectomy. Partial duplication of [...] 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 DICTATION LOCATION: Location 1 - [facility] Narrative 03/08/2018 1:23 PM NUTRITION SERVICES ASSOCIATE EXAM: CT ABDOMEN AND PELVIS WITH IV [...] 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 DICTATION LOCATION: Location 1 - [facility] Pernell Lind MD CT ORDERABLES * LIPASE (03/07/2018 2:15 PM NUTRITION SERVICES ASSOCIATE) Pathologist [facility] LIPASE 31 13 - 60 U/L 03/07/2018 3:02 PM NUTRITION SERVICES ASSOCIATE [facility] Blood Venipuncture / Unknown 03/07/2018 2:15 PM NUTRITION SERVICES ASSOCIATE 03/07/2018 2:25 PM NUTRITION SERVICES ASSOCIATE Pernell Lind MD CHEMISTRY ORDERABLES [facility] [id number] 5 [facility] [place] [id number] * (ABNORMAL) COMPREHENSIVE METABOLIC PANEL (03/07/2018 2:15 PM NUTRITION SERVICES ASSOCIATE) Pathologist [facility] SODIUM 128(L) 136 - 145 mmol/L 03/07/2018 4:50 PM NUTRITION SERVICES ASSOCIATE [facility] POTASSIUM 3.5 - 5.0 mmol/L 03/07/2018 4:50 PM NUTRITION SERVICES ASSOCIATE [facility] Comment: Gross hemolysis present. ??Result unreliable. CHLORIDE 93(L) 98 - 107 mmol/L 03/07/2018 4:50 PM [facility] LABORATORY [facility] CO2 21(L) 22 - 29 mmol/L 03/07/2018 4:50 PM [facility] LABORATORY [facility] CALCIUM 9.2 8.6 - 10.2 mg/dL 03/07/2018 4:50 PM [facility] LABORATORY [facility] BUN 9 6 - 20 mg/dL 03/07/2018 4:50 PM [facility] LABORATORY [facility] CREATININE 0.39(L) 0.51 - 0.95 mg/dL 03/07/2018 4:50 PM [facility] GLUCOSE 122(H) 74 - 99 mg/dL 03/07/2018 4:50 PM [facility] TOTAL PROTEIN 7.3 6.7 - 8.6 g/dL 03/07/2018 4:50 PM [facility] ALBUMIN 4.2 3.5 - 5.2 g/dL 03/07/2018 4:50 PM [facility] BILIRUBIN TOTAL 0.2(L) 0.3 - 1.2 mg/dL 03/07/2018 4:50 PM [facility] ALKALINE PHOSPHATASE 35 - 104 U/L 03/07/2018 4:50 PM [facility] Comment: Gross hemolysis present. ??Result unreliable. AST 6 <33 U/L 03/07/2018 4:50 PM [facility] [employer] [facility] Comment: Cleared of chylomicrons. Hemolysis present. Result may be falsely elevated. ALT 16 <34 U/L 03/07/2018 4:50 PM [facility] [employer] [facility] Comment: Cleared of chylomicrons. Hemolysis present. Result may be falsely elevated. GFR >60 >=60 mL/min/1.7 3 sq meter 03/07/2018 4:50 PM [facility] [employer] [facility] Comment: eGFR has not been validated for [...] mL/min/1.7 3 sq meter 03/07/2018 4:50 PM [facility] [employer] [facility] ANION GAP 14 8 - 16 mmol/L 03/07/2018 4:50 PM [facility] [employer] [facility] Blood Venipuncture / Unknown 03/07/2018 2:15 PM NUTRITION SERVICES ASSOCIATE 03/07/2018 2:25 PM [facility] [employer] [facility] - 03/07/2018 4:50 PM NUTRITION SERVICES ASSOCIATE Samples containing indocyanine green cause interferences on Total and/or Direct Bilirubin and must not be measured. Pernell Lind MD CHEMISTRY ORDERABLES [facility] [employer] [facility]# [id number] 5 [facility] [place] [address] * (ABNORMAL) CBC WITH DIFFERENTIAL (03/07/2018 2:15 PM NUTRITION SERVICES ASSOCIATE) WBC 7.8 4.0 - 9.8 K/uL 03/07/2018 2:36 PM [facility] [employer] [facility] RBC 4.69 3.90 - 4.90 M/uL 03/07/2018 2:36 PM [facility] [employer] [facility] HEMOGLOBIN 14.7 11.8 - 14.8 g/dL 03/07/2018 2:36 PM [facility] [employer] [facility] HEMATOCRIT 42.4 35.5 - 44.0 % 03/07/2018 2:36 PM [facility] [employer] [facility] MCV 90.4 82.0 - 99.0 fL 03/07/2018 2:36 PM [facility] [employer] [facility] MCH 31.3 27.2 - 32.6 pg 03/07/2018 2:36 PM [facility] [employer] [facility] MCHC 34.7 31.5 - 35.5 g/dL 03/07/2018 2:36 PM NUTRITION SERVICES ASSOCIATE [facility] LABORATORY SERVICES [facility] RDW 13.6 11.5 - 14.5 % 03/07/2018 2:36 PM NUTRITION SERVICES ASSOCIATE [facility] LABORATORY SERVICES [facility] RDW-STDEV 44.3 37.1 - 48.7 fL 03/07/2018 2:36 PM [facility] [employer] LABORATORY SERVICES - . [place] PLATELETS 339 140 - 350 K/uL 03/07/2018 2:36 PM NUTRITION SERVICES ASSOCIATE [facility] LABORATORY SERVICES [facility] MPV 9.5 9.3 - 12.4 fL 03/07/2018 2:36 PM NUTRITION SERVICES ASSOCIATE [facility]ATORY SERVICES [facility] NEUTROPHILS 60 % 03/07/2018 2:36 PM NUTRITION SERVICES ASSOCIATE [facility]AT[facility] LYMPHOCYTES 33 % 03/07/2018 2:36 PM [facility] [employer] LAB[facility]ATORY SERVICES [facility] MONOCYTES 5 % 03/07/2018 2:36 PM NUTRITION SERVICES ASSOCIATE [facility]AT[facility] EOSINOPHILS 1 % 03/07/2018 2:36 PM NUTRITION SERVICES ASSOCIATE [facility]AT[facility] BASOPHILS 1 % 03/07/2018 2:36 PM NUTRITION SERVICES ASSOCIATE [facility]ATORY SERVICES [facility] IMMATURE GRANULOCYTES 1 % 03/07/2018 2:36 PM NUTRITION SERVICES ASSOCIATE [facility] LABORATORY SERVICES - . [facility] Comment:IG (Immature Granulo cyte) count includes Metamyelocytes, Myelocytes, and Promyelocytes NEUTROPHIL ABSOLUTE 4.67 1.90 - 7.00 K/uL 03/07/2018 2:36 PM [facility] [employer] LABORATORY SERVICES - . [place] LYMPHOCYTE ABSOLUTE 2.60 0.70 - 4.50 K/uL 03/07/2018 2:36 PM NUTRITION SERVICES ASSOCIATE [facility] LABORATORY SERVICES [facility] MONOCYTE ABSOLUTE 0.37 0.10 - 1.30 K/uL 03/07/2018 2:36 PM [facility] LABORATORY SERVICES [facility] EOSINOPHIL ABSOLUTE 0.08 0.00 - 0.70 K/uL 03/07/2018 2:36 PM NUTRITION SERVICES ASSOCIATE [facility] LABORATORY SERVICES [facility] BASOPHILS ABSOLUTE 0.04 0.00 - 0.20 K/uL 03/07/2018 2:36 PM NUTRITION SERVICES ASSOCIATE [facility] LABORATORY SERVICES - . [facility] IMMATURE GRANULOCYTES ABSOLUTE 0.05(H) 0.00 - 0.03 K/uL 03/07/2018 2:36 PM NUTRITION SERVICES ASSOCIATE [employer] LABORATORY SERVICES - [facility] Blood Venipuncture / Unknown 03/07/2018 2:15 PM NUTRITION SERVICES ASSOCIATE 03/07/2018 2:25 PM NUTRITION SERVICES ASSOCIATE Pernell Lind MD HEMATOLOGY ORDERABLE S [facility]ORAT[facility] SERVICES [facility]# [id number] [address] [place] [address] documented in this encounter Visit Diagnoses Not on filedocumented in this encounter Administered Medications Inactive Administered Medications - up to 3 most recent administrations Medication Order MAR Action Action Date Dose Rate Site acetaminophen (TYLENOL) tablet 650 mg 650 mg, Oral, EVERY 6 HOURS PRN, Starting on 03/08/18 at 1358, Until 03/09/18 at 1738, Pain, Break-Through, Routine Given 03/09/2018 5:34 AM NUTRITION SERVICES ASSOCIATE 650 mg Given 03/08/2018 8:06 PM NUTRITION SERVICES ASSOCIATE 650 mg Given 03/08/2018 2:28 PM NUTRITION SERVICES ASSOCIATE 650 mg atorvastatin (LIPITOR) tablet 80 mg 80 mg, Oral, DAILY AT BEDTIME, First dose on 03/08/18 at 0000, Until Discontinued, Routine Given 03/08/2018 9:14 PM NUTRITION SERVICES ASSOCIATE 80 mg Given 03/08/2018 4:13 AM NUTRITION SERVICES ASSOCIATE 80 mg citalopram (CeleXA) tablet 40 mg 40 mg, Oral, DAILY, First dose on 03/08/18 at 0900, Until Discontinued, Routine Given 03/09/2018 10: 00 AM NUTRITION SERVICES ASSOCIATE 40 mg Given 03/08/2018 8:10 AM NUTRITION SERVICES ASSOCIATE 40 mg dextrose 5% - sodium chloride [...] Itching, Restlessness, Routine Given 03/08/2018 8:05 PM NUTRITION SERVICES ASSOCIATE 25 mg Given 03/08/2018 2:27 PM NUTRITION SERVICES ASSOCIATE 25 mg enoxaparin (LOVENOX) injection 40 mg 40 mg, subCUT, EVERY 24 HOURS, First dose on 03/08/18 at 0900, Until Discontinued, Routine Given 03/09/2018 10:00 AM NUTRITION SERVICES ASSOCIATE 40 mg Abdomen, Left Lower Quadrant Given 03/08/2018 1:19 PM NUTRITION SERVICES ASSOCIATE 40 mg Ab domen, Left Lower Quadrant fenofibrate (LOFIBRA) tablet 160 mg 160 mg, Oral, DAILY, First dose on 03/08/18 at 0900, Until Discontinued, Routine Given 03/08/2018 1:12 PM NUTRITION SERVICES ASSOCIATE 160 mg Fish Oil-Clyo-3 Fatty Acids 360-1,200 mg capsule 2 Capsule 2 Capsule, Oral, TWO TIMES DAILY, First dose (after last modification) on 03/08/18 at 1030, Until Discontinued, Routine Given 03/09/2018 10:00 AM NUTRITION SERVICES ASSOCIATE 2 Capsules Given 03/08/2018 9:13 PM NUTRITION SERVICES ASSOCIATE 2 Capsules Given 03/08/2018 1:11 PM NUTRITION SERVICES ASSOCIATE 2 Capsules gemfibrozil (LOPID) tablet 600 mg 600 mg, Oral, TWO TIMES DAILY BEFORE MEALS, First dose on 03/08/18 at 1600, Until Discontinued, Routine Given 03/09/2018 5:30 AM NUTRITION SERVICES ASSOCIATE 600 mg Given 03/08/2018 8:06 PM NUTRITION SERVICES ASSOCIATE 600 mg glucagon HCl 1 mg injection 1 mg 1 mg, IM, SEE ADMIN INSTRUCTIONS, Starting on 03/08/18 at 0246, Until 03/09/18 at 1738, Routine hyoscyamine (LEVSIN) sublingual tablet 0.125 mg 0.125 mg, Sublingual, EVERY 6 HOURS PRN, Starting on 03/08/18 at 1307, Until 03/09/18 at 1738, Spasm, Routine Given 03/09/2018 10:10 AM NUTRITION SERVICES ASSOCIATE 0.125 mg Given 03/08/2018 2:28 PM NUTRITION SERVICES ASSOCIATE 0.125 mg insulin glargine (LANTUS) injection 10 Units 10 Units, subCUT, TWO TIMES DAILY, First dose (after last modification) on 03/09/18 at 2100, Until Discontinued, Routine insulin glargine (LANTUS) injection 20 Units 20 Units, subCUT, TWO TIMES DAILY, First dose on 03/08/18 at 0800, Until Discontinued, Routine Given 03/08/2018 9:19 PM NUTRITION SERVICES ASSOCIATE 20 Units Arm, Right Upper Given 03/08/2018 8:06 AM NUTRITION SERVICES ASSOCIATE 20 Units De ltoid, Left insulin lispro (HumaLOG) injection 5 Units 5 Units, subCUT, THREE TIMES DAILY WITH MEALS, First dose on 03/09/18 at 1200, Until Discontinued, Routine Given 03/09/2018 2:16 PM NUTRITION SERVICES ASSOCIATE 5 Units Arm, Right Upper insulin lispro (HumaLOG) variable dose injection subCUT, THREE TIMES DAILY WITH MEALS, First dose (after last modification) on 03/09/18 at 1200, Until Discontinued, Routine iopamidol (ISOVUE-300) 61 % injection 125 mL 125 mL, IV, INTRA-PROCEDURE ONCE, 1 dose, Starting on Sat03/07/18 at 1744, Until Sat03/07/18 at 1824, Routine Contrast Given 03/07/2018 6:24 PM NUTRITION SERVICES ASSOCIATE 125 mL lactated Ringers solution IV, at 125 mL/hr, PRE-PROCEDURE CONTINUOUS, Starting on 03/08/18 at 1100, Until 03/08/18 at 1254, Routine Continue from Pre-Op 03/08/2018 11:53 AM NUTRITION SERVICES ASSOCIATE New Bag 03/08/2018 10:55 AM NUTRITION SERVICES ASSOCIATE 125 mL/hr levothyroxine (SYNTHROID) tablet 175 mcg 175 mcg, Oral, DAILY EARLY, First dose on 03/08/18 at 0600, Until Discontinued, Routine Given 03/08/2018 7:26 AM NUTRITION SERVICES ASSOCIATE 175 mcg levothyroxine (SYNTHROID) tablet 200 mcg 200 mcg, Oral, DAILY EARLY, First dose (after last modification) on 03/09/18 at 0600, Until Discontinued, Routine Given 03/09/2018 5:30 AM NUTRITION SERVICES ASSOCIATE 200 mcg LORazepam (ATIVAN) 2 mg/mL injection 0.25 mg 0.25 mg, IV, TWO TIMES DAILY PRN, Starting on Sat03/07/18 at 2342, Until Sat03/08/18 at 1308, Anxiety, Routine Given 03/08/2018 12:32 AM NUTRITION SERVICES ASSOCIATE 0.25 mg morphine 4 mg/mL injection 2 mg 2 mg, IV, EVERY 3 HOURS PRN, Starting on Sat03/07/18 at 2341, Until 03/08/18 at 1308, Pain (See admin instructions), Routine Given 03/08/2018 7:27 AM NUTRITION SERVICES ASSOCIATE 2 mg Given 03/08/2018 4:09 AM NUTRITION SERVICES ASSOCIATE 2 mg morphine 4 mg/mL injection 4 mg 4 mg, IV, ONE TIME ONLY, 1 dose, On Sat03/07/18 at 1715, Routine Given 03/07/2018 5:25 PM NUTRITION SERVICES ASSOCIATE 4 mg morphine 4 mg/mL injection 4 mg 4 mg, IV, ONE TIME ONLY, 1 dose, On Sat03/07/18 at 1945, Routine Given 03/07/2018 8:18 PM NUTRITION SERVICES ASSOCIATE 4 mg morphine 4 mg/mL injection 4 mg 4 mg, IV, EVERY 3 HOURS PRN, Starting on Sat03/07/18 at 2208, Until Sat03/07/18 at 2345, Pain (See admin instructions), Routine Given 03/07/2018 10:41 PM NUTRITION SERVICES ASSOCIATE 4 mg niacin (NIACOR) tablet 500 mg 500 mg, Oral, TWO TIMES DAILY, First dose on 03/08/18 at 1030, Until Discontinued, Routine Given 03/08/2018 1:11 PM NUTRITION SERVICES ASSOCIATE 500 mg niacin (NIASPAN ER) SR 24 hour tablet 500 mg 500 mg, Oral, TWO TIMES DAILY WITH MEALS, First dose on 03/08/18 at 2300, Until Discontinued, Routine Given 03/09/2018 10:03 AM NUTRITION SERVICES ASSOCIATE 500 mg Given 03/08/2018 10:40 PM NUTRITION SERVICES ASSOCIATE 500 mg ondansetron (ZOFRAN ODT) tablet 4 mg 4 mg, Oral, EVERY 6 HOURS PRN, Starting on Sat03/07/18 at 2344, Until 03/09/18 at 1738, Nausea/Emesis, Routine Given 03/08/2018 10:41 PM NUTRITION SERVICES ASSOCIATE 4 mg Given 03/08/2018 12:28 AM NUTRITION SERVICES ASSOCIATE 4 mg pantoprazole (PROTONIX) tablet 40 mg 40 mg, Oral, DAILY, First dose on 03/08/18 at 1430, Until Discontinued, Routine Given 03/09/2018 10: 00 AM NUTRITION SERVICES ASSOCIATE 40 mg Given 03/08/2018 2:44 PM NUTRITION SERVICES ASSOCIATE 40 mg potassium Cl 20 mEq in dextrose 5% - NaCl 0.45% 1000 mL infusion IV, at 125 mL/hr, CONTINUOUS, Starting on Sat03/07/18 at 2215, Until Sat03/07/18 at 2346, Routine New Bag 03/07/2018 10:37 PM NUTRITION SERVICES ASSOCIATE 125 mL/hr prochlorperazine (COMPAZINE) injection 5 mg 5 mg, IV, ONE TIME ONLY, 1 dose, On Sat03/07/18 at 1715, Routine Given 03/07/2018 5:25 PM NUTRITION SERVICES ASSOCIATE 5 mg prochlorperazine (COMPAZINE) injection 5 mg 5 mg, IV, EVERY 6 HOURS PRN, Starting on Sat03/07/18 at 2208, Until Sat03/09/18 at 1738, Nausea, Routine Given 03/09/2018 10:13 AM NUTRITION SERVICES ASSOCIATE 5 mg Given 03/08/2018 1:22 PM NUTRITION SERVICES ASSOCIATE 5 mg Given 03/08/2018 4:10 AM NUTRITION SERVICES ASSOCIATE 5 mg sodium chloride 0.9% bolus solution 500 mL 500 mL, IV, ONE TIME ONLY, 1 dose, On Sat03/07/18 at 1715, at 1,000 mL/hr, Administer over 30 Minutes, Routine New Bag 03/07/2018 5:25 PM NUTRITION SERVICES ASSOCIATE 500 mL 1000 m L/hr sodium chloride 0.9% infusion IV, at 150 mL/hr, CONTINUOUS, Starting on Sat03/07/18 at 1715, Until Sat03/09/18 at 1738, Routine Rate Change 03/09/2018 2:16 PM NUTRITION SERVICES ASSOCIATE 20 mL/hr Rate Change 03/09/2018 12:35 PM NUTRITION SERVICES ASSOCIATE 150 mL/hr Rate Change 03/09/2018 12:25 PM NUTRITION SERVICES ASSOCIATE 20 mL/hr sodium chloride flush injection 10 mL 10 mL, IV, ONE TIME ONLY, 1 dose, On Sat03/07/18 at 1745, Routine Given 03/07/2018 5:45 PM NUTRITION SERVICES ASSOCIATE 10 mL sodium chloride flush injection 3 mL 3 mL, IV, TWO TIMES DAILY, First dose on Sat03/08/18 at 0100, Until Discontinued, Routine Given 03/08/2018 9:21 PM NUTRITION SERVICES ASSOCIATE 3 mL Given 03/08/2018 10:15 AM NUTRITION SERVICES ASSOCIATE 3 mL Given 03/08/2018 4:19 AM NUTRITION SERVICES ASSOCIATE 3 mL spironolactone (ALDACTONE) tablet 100 mg 100 mg, Oral, DAILY, First dose on Sat03/08/18 at 0900, Until Discontinued, Routine Given 03/09/2018 10:00 AM NUTRITION SERVICES ASSOCIATE 100 mg Given 03/08/2018 1:11 PM NUTRITION SERVICES ASSOCIATE 100 mg traZODone (DESYREL) tablet 100 mg 100 mg, Oral, DAILY AT BEDTIME, First dose on 03/08/18 at 0000, Until Discontinued, Routine Given 03/08/2018 9:12 PM NUTRITION SERVICES ASSOCIATE 100 mg Given 03/08/2018 12:27 AM NUTRITION SERVICES ASSOCIATE 100 mg documented in this encounter Active and Recently Administered Medications Times are shown in NUTRITION SERVICES ASSOCIATE. Scheduled Medication Order 03/07/2018 03/08/2018 03/09/2018 atorvastatin (LIPITOR) tablet 80 mg 80 mg, Oral, DAILY AT BEDTIME, First dose on 03/08/18 at 0000, Until Discontinued, Routine 0413 (Given - Provider: Alize Darling RN)2114 (Given - Provider: Alize Darling RN) citalopram (CeleXA) tablet 40 mg 40 mg, Oral, DAILY, First dose on 03/08/18 at 0900, Until Discontinued, Routine 0810 (Given - Provider: Harvey Rendon RN) 1000 (Given - Provider: Sandeep Pope, CLAU) dextrose 5% - sodium chloride 0.9% infusion [...] Rendon RN) 1000 (Given - Provider: Sandeep Pope RN) fenofibrate (LOFIBRA) tablet 160 mg (CANCELED) 160 mg, Oral, DAILY, First dose on 03/08/18 at 0900, Until Discontinued, Routine 1312 (Given - Provider: Harvey Rendon RN) Fish Oil-Clyo-3 Fatty Acids 360-1,200 mg capsule 2 Capsule 2 Capsule, Oral, TWO TIMES DAILY, First dose (after last modification) on 03/08/18 at 1030, Until Discontinued, Routine 1311 (Given - Provider: Harvey Rendon RN)211 (Given - Provider: Alize Darling RN) 1000 (Given - Provider: Sandeep Pope, CLAU) gemfibrozil (LOPID) tablet 600 mg 600 [...] - Comment: [id number] (Given - Provider: Alize Darling RN) 0800 (Canceled Entry - Provider: Sandeep Pope, CLAU) insulin lispro (HumaLOG) injection 5 Units 5 Units, subCUT, THREE TIMES DAILY WITH MEALS, First dose on 03/09/18 at 1200, Until Discontinued, Routine 1416 (Given - Provider: Sandeep Pope, CLAU) insulin lispro (HumaLOG) variable dose injection subCUT, THREE TIMES DAILY WITH MEALS, First dose (after last modification) on 03/09/18 at 1200, Until Discontinued, Routine 1200 (Not Given - Provider: Sandeep Pope RN - Reason: Lab results) iopamidol (ISOVUE-300) 61 % injection 125 mL (COMPLETED) 125 mL, IV, INTRA-PROCEDURE ONCE, 1 dose, Starting on Sat03/07/18 at 1744, Until Sat03/07/18 at 1824, Routine 1824 (Contrast Given - Provider: Rich Lewis, RT) levothyroxine (SYNTHROID) tablet 175 mcg (CANCELED) 175 mcg, Oral, DAILY EARLY, First dose on 03/08/18 at 0600, Until Discontinued, Routine 0726 (Given - Provider: Alize Darling, CLAU) levothyroxine (SYNTHROID) tablet 200 mcg 200 [...] 1945, Routine 2018 (Given - Provider: Maame Reed RN) naloxone (NARCAN) 0.4 mg/mL injection 0.1 mg 0.1 mg, IV, SEE ADMIN INSTRUCTIONS, Starting on Sat03/07/18 at 2344, Until Sat03/09/18 at 1738, Routine niacin (NIACOR) tablet 500 mg (CANCELED) 500 mg, Oral, TWO TIMES DAILY, First dose on Sat03/08/18 at 1030, Until Discontinued, Routine 1311 (Given - Provider: Harvey Rendon, CLAU) niacin (NIASPAN ER) SR 24 hour tablet 500 mg 500 mg, Oral, TWO TIMES DAILY WITH MEALS, First dose on Sat03/08/18 at 2300, Until Discontinued, Routine 2240 (Given - Provider: Alize Darling, CLAU) 1003 (Given - Provider: Sandeep Pope, CLAU) pantoprazole (PROTONIX) tablet 40 mg 40 mg, Oral, DAILY, First dose on Sat03/08/18 at 1430, Until Discontinued, Routine 1444 (Given - Provider: Harvey Rendon, CLAU) 1000 (Given - Provider: Sandeep Pope, RN) prochlorperazine (COMPAZINE) injection 5 mg (COMPLETED) 5 mg, IV, ONE TIME ONLY, 1 dose, On Sat03/07/18 at 1715, Routine 1725 (Given - Provider: Jeff Enciso, CLAU) sodium chloride 0.9% bolus solution 500 mL (COMPLETED) 500 mL, IV, ONE TIME ONLY, 1 dose, On Sat03/07/18 at 1715, at 1,000 mL/hr, Administer over 30 Minutes, Routine 1725 (New Bag - Provider: Jeff Enciso, RN)1755 (Stopped - Provider: Alize Darling RN)1800 (Stopped - Provider: Jeff Enciso, CLAU) sodium chloride flush injection 10 mL (COMPLETED) 10 mL, IV, ONE TIME ONLY, 1 dose, On Sat03/07/18 at 1745, Routine 1745 (Given - Provider: Rich Lewis, RT) sodium chloride flush injection 3 mL 3 mL, IV, TWO TIMES DAILY, First dose on 03/08/18 at 0100, Until Discontinued, Routine 0419 (Given - Provider: Alize Darling RN)1015 (Given - Provider: Harvey Rendon RN)2121 (Given - Provider: Alize Darling RN) 0900 (Not Given - Provider: Sandeep Ppoe, CLAU - Reason: Clarify-Other (Comment) - Comment: continuous IVF) spironolactone (ALDACTONE) tablet 100 mg 100 mg, Oral, DAILY, First dose on 03/08/18 at 0900, Until Discontinued, Routine 1311 (Given - Provider: Harvey Rendon RN) 1000 (Given - Provider: Sandeep Pope, CLAU) traZODone (DESYREL) tablet 100 mg 100 mg, Oral, DAILY AT BEDTIME, First dose on 03/08/18 at 0000, Until Discontinued, Routine 0027 (Given - Provider: Alize Darling RN)2112 (Given - Provider: Alize Darling RN) Continuous [...] at 1715, Until Sat03/09/18 at 1738, Routine 2113 (New Bag - Provider: Maame Reed RN)2115 (Rate Verify - Provider: Alize Darling RN)2225 (Rate Verify - Provider: Alize Darling RN)2231 (Stopped - Provider: Alize Darling RN)2237 (Stopped - Provider: Alize Darling RN) 0414 (New Bag - Provider: Alize Darling RN)0414 (Paused - Provider: Alize Darling RN)0417 (Restarted - Provider: Alize Darling RN)0418 (Paused - Provider: Alize Darling RN)0418 (Restarted - Provider: Alize Darling RN)0748 (Rate Verify - Provider: Alize Darling RN)0800 (Rate Verify - Provider: Harvey Rendon RN)0809 (Rate Verify - Provider: Harvey Rendon RN)1000 (Rate Verify - Provider: Harvey Rendon RN)1016 (Stopped - Provider: Alize Darling RN)1324 [...] Darling RN)2239 (Paused - Provider: Alize Darling RN)2239 (Restarted - Provider: Alize Darling RN)2242 (Bag [...] Darling RN)1000 (Rate Verify - Provider: Sandeep Pope, RN)1225 (Rate Change - Provider: Sandeep Pope, RN)1235 (Rate Change - Provider: Sandeep Pope, RN)1416 (Rate Change - Provider: Sandeep Pope RN)1418 (Stopped - Provider: Sandeep Pope RN) PRN Medication Order 03/07/2018 03/08/2018 03/09/2018 acetaminophen (TYLENOL) tablet 650 mg 650 mg, Oral, EVERY 6 HOURS PRN, Starting on 03/08/18 at 1358, Until 03/09/18 at 1738, Pain, Break-Through, Routine 1428 (Given - Provider: Harvey Rendon RN)2005 (Given - Provider: Alize Darling, CLAU) 0534 (Given - Provider: Alize Darling, CLAU) diphenhydrAMINE (BENADRYL) tablet 25 mg 25 mg, Oral, EVERY 6 HOURS PRN, Starting on 03/08/18 at 1359, Until 03/09/18 at 1738, Itching, Restlessness, Routine 1427 (Given - Provider: Harvey Rendon RN)2004 (Given - Provider: Alize Darlnig RN) hyoscyamine (LEVSIN) sublingual tablet 0.125 mg 0.125 mg, Sublingual, EVERY 6 HOURS PRN, Starting on 03/08/18 at 1307, Until 03/09/18 at 1738, Spasm, Routine 1428 (Given - Provider: Harvey Rendon RN) 1010 (Given - Provider: Sandeep Pope RN) LORazepam (ATIVAN) 2 mg/mL injection 0.25 mg [...] PRN, Starting on Sat03/07/18 at 2208, Until 03/09/18 at 1738, Nausea, Routine 2244 (Given - Provider: Alize Darling RN) 0410 (Given - Provider: Alize Darling RN)1322 (Given - Provider: Harvey Rendon RN) 1013 (Given - Provider: Sandeep Pope RN) documented in this encounter Care Teams Hospitality Host Relationship Specialty Start Date End Date Guerrero Middleton PA-C PCP - General Physician Hosiery Looper 02/13/18 documented as of this encounter
--- OUTSIDE RECORDS SUMMARY | 2024-05-03 20:46 | XMS_ITS | Encounter Summary ---
Author Organization [facility] Address [address] [place] [address] Care Team Providers Care Die Maker Bench Stamping Name Role Phone Guerrero Middleton PA-C Primary Care Provide r Reason for Visit * Reason Onset Date Comments Results 04/04/2018 triglycerides, b lood sugar Encounter Details Date Type Department Care Team (Late st Contact Info) Description 04/04/2018 Telephone [facility] Heart and Vascular At [address] [place] [phone] Marlys Mayer MD [address] [place] [address] [address] [place] [address] Results (triglycerides, blood sugar) Social History Tobacco Use Types Packs/Day Years [...] Encounter - Alexandra Kahn RN - 04/04/2018 3:20 PM LOGISTICS ENGINEERING MANAGER Called patient again, informed her her triglycerides are 3531, blood sugar 188 patient verbalized understanding. Per Dr. Mayer patient is to stay on a strict low-fat, low-carb diet, patient verbalized understanding. Patient asked about coming in for plasmapheresis. Explained that they will not doplasmapheresis if she is asymptomatic. If she does develop abdominal pain or vomiting this weekend to come to [facility] emergency room where they will do plasmapheresis, verb understanding STICS ENGINEERING MANAGER * Telephone Encounter - Alexandra Kahn RN - 04/04/2018 3:03 PM LOGISTICS ENGINEERING MANAGER Called patient to let her know Dr. Mayer has called Dr. Gates's office, the earliest appointment she could get was May 152018. Dr. Mayer is messaging Dr. Gates to see if she can get pt in sooner. In the meantime patient needs to stay hydrated, if she develops abdominal pain or vomiting should go to the emergency room, verbalized understanding STICS ENGINEERING MANAGER documented in this encounter Plan of Treatment Upcoming Encounters Date Type Department Care Team (Late st Contact Info) Description 09/14/2024 3:00 PM CDT Office Visit [facility] Heart and Vascular - [place] [phone] [place] [phone] Marlys Mayer MD [address] [place] [address] documented as of this encounter Visit Diagnoses Not on filedocumented in this encounter Care Teams Die Maker Bench Stamping Relationship Specialty Start Date End Date Guerrero Middleton PA-C PCP - General Physician Tipple Worker 02/13/18 documented as of this encounter
--- OUTSIDE RECORDS SUMMARY | 2024-05-03 20:46 | XMS_ITS | Encounter Summary ---
Author Organization [facility] Address [address] [place] [address] Care Team Providers Care Video Systems Engineer Name Role Phone Guerrero Middleton PA-C Primary Care Provide r Reason for Visit * Reason Comments Establish Care Encounter Details Date Type Department Care Team (Latest Contact Info) Description 03/06/2018 1:00 PM EMAIL MARKETING ASSISTANT Office Visit [facility] Heart and Vascular At [address] [place] [phone] Marlys Mayer MD [address] [place] [address] [address] [place] [address] Hypertriglyceridemia (Primary Dx); Metabolic syndrome; Tobacco use; Abdominal pain, unspecified abdominal location; Type 2 diabetes mellitus without complication, with long-term current use of insulin Social History Tobacco Use Types Packs/Day Years [...] Sign Reading Time Taken Comments Blood Pressure 136/90 03/06/2018 1:41 PM EMAIL MARKETING ASSISTANT Pulse 104 03/06/2018 1:41 PM EMAIL MARKETING ASSISTANT Temperature - - Respiratory Rate - - Oxygen Saturation 97% 03/06/2018 1:41 PM EMAIL MARKETING ASSISTANT Inhaled Oxygen Concentration - - Weight 89.8 kg (198 lb) 03/06/2018 1:41 PM EMAIL MARKETING ASSISTANT Height 165.1 cm (5' 5 ) 03/06/2018 1:41 PM EMAIL MARKETING ASSISTANT Body Mass Index 32.95 03/06/2018 1:41 PM EMAIL MARKETING ASSISTANT documented in this encounter Progress Notes * Marlys Mayer MD - 03/06/2018 2:08 PM CST [facility] Heart and Vascular New Patient Visit Casandra Faulkner, a 42 y.o. female, is a new patient establishing care with [facility] Heart and Vascular [facility] following problems: ICD-10-CM ICD-9-CM 1. Hypertriglyceridemia E78.1 272.1 2. Metabolic syndrome E88.81 277.7 3. Tobacco use Z72.0 305.1 4. Abdominal pain, unspecified abdominal location R10.9 789.00 Casandra Jones ( has chart also under Casandra Jones with same date) Patient has had elevated triglycerides since early adulthood which she reports have not been well controlled. She has history of pancreatitis and was mostly recently admitted 02/10 to 02/18/18 for abdominal pain; lipase & amylase were normal.Triglycerides were 1567 on admission and 707 on discharge. She is on diabetic and low fat diet which she attempts to follow but admits it is difficult. In addition, she has slow gastric emptying so has trouble with eating large quantities of vegetables, fiber. She does not drink soda or alcohol. Recently she feels nauseated and has chronic LUQ pain which has not resolved from prior hospitalization. She has history of PCOS and insulin resistance, gestational diabetes and now on insulin - split dose long acting plus sliding scale regular insulin. She has had r ecurrent pancreatitis and has had plasmaphoresis in the past when her triglycerides have exceeded 2500. She has a family history of CAD and diabetes.She last had a pharmacologic stress test about 5-6years ago. She does not exercise regularly. She c/o weakness and pain in her leg muscles. Denies jacquelin st pain, PND, orthopnea, edema,palpitations, syncope or near syncope. Current Outpatient Prescriptions Medication Sig Dispense Refill ??? LORazepam (ATIVAN) 1 mg tablet Take 1 mg by mouth 2 times daily. ??? qnekbpk-ohscps-xsanjzbd 60-12-38 capsule Take by mouth 3 times daily. ??? insulin glargine (LANTUS) 100 unit/mL injection Inject 10 Units by subcutaneous injection 2 times daily. ??? niacin (NIACOR) 500 mg tablet Take 500 mg by mouth 2 times daily. ??? pantoprazole (PROTONIX) 40 mg Tablet, Delayed Release (E.C.) Take 40 mg by mouth daily. ??? [id number]-CNAG OIL ORAL Take by mouth 4 times daily. ??? traZODone (DESYREL) 100 mg tablet Take 100 mg by mouth. ??? insulin aspart protamine-aspart (NovoLOG MIX 70-30) 100 unit/mL (70-30) pen syringe Inject by subcutaneous injection. ??? levothyroxine (SYNTHROID) 137 mcg Oral tablet Take 1 Tab by mouth daily radio program checker. TAKE WITHOUT FOOD 30 Tab 0 ??? rosuvastatin (CRESTOR) 5 mg tablet Take 1 Tab by mouth daily at bedtime. 30 Tab 0 ??? spironolactone (ALDACTONE) 100 [...] ibuprofen (MOTRIN) 800 mg Oral tablet Take 800 mg by mouth every 6 hours as needed. ??? [DISCONTINUED] ergocalciferol (VITAMIN D2) 50,000 unit Oral capsule Take 1 Cap by mouth every 30 days. 3 Cap 4 ??? [DISCONTINUED] ALPRAZolam (XANAX) 0.5 mg Oral tablet Take 1 Tab by mouth nightly as needed for Anxiety. 30 Tab 0 ??? [DISCONTINUED] varenicline (CHANTIX) 0.5 mg Oral Tab Take 2 Tabs by mouth 2 times daily. 60 Tab2 ??? [DISCONTINUED] ketorolac tromethamine (TORADOL) 10 mg Oral tablet Take 10 mg by mouth every 4 hours as needed. No current facility-administered medications for this visit. Past Medical History: Diagnosis Date ??? Family history of diabetes mellitus 05/15/2011 ??? Family history of early CAD 05/15/2011 ??? History of gestational diabetes 05/15/2011 ??? Metabolic syndrome 05/15/2011 ??? PCOS (polycystic ovarian syndrome) 05/15/2011 Past Surgical History: Procedure Laterality Date ??? HX APPENDECTOMY ??? HX HYSTERECTOMY partial due to endometriosis 2006 Social History Social History ??? Marital status: Spouse name: N/A ??? Number of children: N/A ??? Years of education: N/A Occupational History ??? [employer] Social History Main Topics ??? Smoking status: Current Every Day Smoker Packs/day: 1.00 Years: 18.00 ??? Smokeless tobacco: Not on file ??? Alcohol use No ??? Drug use: Unknown ??? Sexual activity: Yes Partners: Male Other Topics Concern ??? Not on file Social History Narrative ??? No narrative on file Family History Problem Relation Age of Onset ??? Diabetes Father ??? High Cholesterol Father ??? Hypertension Father ??? Stroke Mother ??? Heart Disease Mother ??? Thyroid Disease Mother ??? High Cholesterol Mother ??? Heart Disease Maternal Grandmother ??? Diabetes Maternal Grandmother ??? Diabetes Paternal Grandmother Review of Systems: GEN: No weight loss or weight gain, energy level stable Endo: No hot or cold intolerance, no polyuria or polydipsia Hypthyroidtis Skin: No rashes or eruptions HEENT: no sinus complaints Lungs: No cough, shortness of breath, or wheezing CV: See above GI: No n/v, no abdominal pain or change in bowel habits : No dysuria or hematuria gestational DM , hysterectomy 2007 PCOS Musculoskeletal: No back pain, neck pain or joint pain or swelling Heme: without excessive bruising or bleeding tendency, no prior blood clots NEURO: no prior cva or seizure PSYCH: No depression or anxiety All other ROS reviewed and are negative Physical Exam: BP (!) 136/90 Pulse (!) 104 Ht 5' 5 (1.651 m) Wt 89.8 kg (198 lb) SpO2 97% ? No BMI 32.95 kg/m?? Gen: NAD, alert, appropriate affect Skin: No rashes or eruptions Head: Normocephalic Eyes: Pupils equal ENT: No JVD, no carotid bruits, no thyromegaly or adenopathy Lungs: Clear to auscultation bilaterally Heart: RRR, normall S1 & S2, no murmurs or gallop appreciated. Abdomen: Soft,Slight LUQ tenderness no rebound , without organomegaly Back: No significant scoliosis Ext: No edema or cyanosis,distal pulses 2+, normal muscle strength Neuro: alert and oriented x 3. Non-focal exam. Normal gait Lab Results Component Value Date/Time CHOLTOT 231 (H) 12/18/2011 08:17 AM CHOLTOT 195 08/10/2011 07:21 AM CHOLTOT 224 (H) 06/19/2011 09:41 AM HDL 36 (L) 12/18/2011 08:17 AM HDL 31 (L) 08/10/2011 07:21 AM HDL 25 (L) 06/19/2011 09:41 AM LDLCALC 12/18/2011 08:17 AM Comment: LDL cholesterol not calculated. Triglyceride levels greater than 400 mg/dL invalidate calculated LDL results. Desirable range <100 mg/dL for patients with CHD or diabetes and <70 mg/dL for diabetic patients with known heart disease. LDLCALC 100 08/10/2011 07:21 AM LDLCALC 06/19/2011 09:41 AM Comment: LDL cholesterol not calculated. Triglyceride levels greater than 400 mg/dL invalidate calculated LDL results. Desirable range <100 mg/dL for patients with CHD or diabetes and <70 mg/dL for diabetic patients with known heart disease. LDLDIRECT 110 08/10/2011 07:21 AM TRIGLYCERIDE 458 (H) 12/18/2011 08:17 AM TRIGLYCERIDE 318 (H) 08/10/2011 07:21 AM TRIGLYCERIDE 543 (H) 06/19/2011 09:41 AM Impression ICD-10-CM ICD-9-CM 1. Hypertriglyceridemia E78.1 272.1 2. Metabolic syndrome E88.81 277.7 3. Tobacco use Z72.0 305.1 4. Abdominal pain, unspecified abdominal location R10.9 789.00 Plan Discussed diet in detail Encouraged patient to keep food journal and follow up with stagecraft teacher since this is essential part of controlling the triglyceride levels Follow-up with quality control technician since better diabetes control and correction of hypothyroidism will help control triglycerides Recommend GI consult to further evaluate chronic abdominal pain Labs today: Lipid panel, amylase, lipase, TSH, CK If trigs>500 add Vascepa 2 gms BID ( she reports not covered by insurance in past) If CK not elevated consider increasing statin L MARKETING ASSISTANT * Danisha Kemp RMA - 03/06/2018 1:44 PM CST No chest pain today she does have dizziness and swelling L MARKETING ASSISTANT documented in this encounter Procedure Notes * Marlys Mayer MD - 03/07/2018 1:29 PM CSTAssociated Order(s): EKG 12-LEAD Procedure(s): MD ECG ROUTINE ECG W/LEAST 12 LDS W/I&R Pre-Procedure Diagnose(s): Metabolic syndrome; Hypertriglyceridemia Sinus rhythm rate 95 bpm Possible left atrial enlargement Prolonged QTc ( 482 ms) Nonspecific ST/T changes L MARKETING ASSISTANT documented in this encounter Plan of Treatment Upcoming Encounters Date Type Department Care Team (Late st Contact Info) Description 09/14/2024 3:00 PM CDT Office Visit [facility] Heart and Vascular - [facility] [address] [place] [address] Marlys Mayer MD [address] [place] [address] documented as of this encounter Procedures Procedure Name Priority Date/Time Associated Diagnosis Comments MD ECG ROUTINE ECG W/LEAST 12 LDS W/I&R Routine 03/07/2018 1:29 PM EMAIL MARKETING ASSISTANT Metabolic syndrome Hypertriglyceridemi a documented in this encounter Results * MD ECG ROUTINE ECG W/LEAST 12 LDS W/I&R (03/07/2018 1:29 PM EMAIL MARKETING ASSISTANT) Narrative [facility] - 03/07/2018 1:29 PM EMAIL MARKETING ASSISTANT Marlys Mayer MD ? 03/07/2018 ??1:32 PM Sinus rhythm rate 95 bpm Possible left atrial enlargement Prolonged QTc ( 482 ms) Nonspecific ST/T changes Procedure Note Marlys Mayer MD - 03/07/2018 1:29 PM CST Sinus rhythm rate 95 bpm Possible left atrial enlargement Prolonged QTc ( 482 ms) Nonspecific ST/T changes Marlys Mayer MD ECG ORDERABLES [facility] CLIA #[id number] [address] [place] [address] * CK (03/06/2018 3:01 PM EMAIL MARKETING ASSISTANT) CK 88 20 - 180 U/L 03/06/2018 6:33 PM EMAIL MARKETING ASSISTANT [facility] Blood Venipuncture / Unknown 03/06/2018 3:01 PM EMAIL MARKETING ASSISTANT 03/06/2018 3:12 PM EMAIL MARKETING ASSISTANT Marlys Mayer MD CHEMISTRY ORDERABLES [facility] [employer] [facility] CLIA# [id number] [address] [place] [address] * (ABNORMAL) LIPID PANEL (03/06/2018 3:01 PM EMAIL MARKETING ASSISTANT) CHOLESTEROL 703(H) <200 mg/dL 03/06/2018 6:40 PM EMAIL MARKETING ASSISTANT [facility] TRIGLYCERIDE 612(H) <150 mg/dL 03/06/2018 6:40 PM [facility] HDL 14(L) 40 - 59 mg/dL 03/06/2018 6:40 PM [facility] LDL CALCULATED <100 mg/dL 03/06/2018 6:40 PM [facility] Comment:Calculated LDL is no t accurate when the Triglyceride value exceeds 400. NON-HDL CHOLESTEROL 689(H) <130 mg/dL 03/06/2018 6:40 PM [facility] Blood Venipuncture / Unknown 03/06/2018 3:01 PM EMAIL MARKETING ASSISTANT 03/06/2018 3:12 PM EMAIL MARKETING ASSISTANT Narrative [facility]ORATORY SERVICES [facility] - 03/06/2018 6:40 PM EMAIL MARKETING ASSISTANT TOTAL CHOLESTEROL ??mg/dL ??Desirable <200 ??Borderline high [...] Mayer MD CHEMISTRY ORDERABLES Performing Organization Address [facility]/ZIP Co de Phone Number [facility] CLOK# [id number] [address] [place] [address] * (ABNORMAL) TSH (03/06/2018 3:01 PM EMAIL MARKETING ASSISTANT) Pathologist [facility] TSH 14.07(H) 0.27 - 4.20 uIU/mL 03/06/2018 7:15 PM EMAIL MARKETING ASSISTANT [facility] Blood Venipuncture / Unknown 03/06/2018 3:01 PM EMAIL MARKETING ASSISTANT 03/06/2018 3:12 PM EMAIL MARKETING ASSISTANT Marlys Mayer MD CHEMISTRY ORDERABLES Performing Organization Address [facility]/ZIP Co de Phone Number [facility]# [id number] [address] [place] [address] * LIPASE (03/06/2018 3:01 PM EMAIL MARKETING ASSISTANT) LIPASE 31 13 - 60 U/L 03/06/2018 6:33 PM EMAIL MARKETING ASSISTANT [facility] Blood Venipuncture / Unknown 03/06/2018 3:01 PM EMAIL MARKETING ASSISTANT 03/06/2018 3:12 PM EMAIL MARKETING ASSISTANT Marlys aMyer MD CHEMISTRY ORDERABLES Performing Organization Address City/[facility]/ZIP Co de Phone Number [facility] CLIA# [id number] [address] [place] [address] * AMYLASE (03/06/2018 3:01 PM EMAIL MARKETING ASSISTANT) AMYLASE 68 28 - 100 U/L 03/06/2018 6:33 PM [facility] [employer] [facility] Blood Venipuncture / Unknown 03/06/2018 3:01 PM EMAIL MARKETING ASSISTANT 03/06/2018 3:12 PM EMAIL MARKETING ASSISTANT Marlys Mayer MD CHEMISTRY ORDERABLES Performing Organization Address [facility] Co de Phone Number [facility] [employer] [facility]# [id number] [address] [place] [address] * (ABNORMAL) COMPREHENSIVE METABOLIC PANEL (03/06/2018 3:01 PM EMAIL MARKETING ASSISTANT) SODIUM 131(L) 136 - 145 mmol/L 03/06/2018 7:57 PM [facility] [employer] [facility] POTASSIUM 4.5 3.5 - 5.0 mmol/L 03/06/2018 7:57 PM [facility] [employer] [facility] Comment: Slightly hemolyzed. Result may be falsely elevated. CHLORIDE 92(L) 98 - 107 mmol/L 03/06/2018 7:57 PM [facility] [employer] LABORATORY SERVICES [facility] CO2 24 22 - 29 mmol/L 03/06/2018 7:57 PM [facility] [employer] [facility] CALCIUM 9.4 8.6 - 10.2 mg/dL 03/06/2018 7:57 PM [facility] [employer] [facility] BUN 10 6 - 20 mg/dL 03/06/2018 7:57 PM [facility] CREATININE 0.47(L) 0.51 - 0.95 mg/dL 03/06/2018 7:57 PM [facility] [employer] [facility] GLUCOSE 148(H) 74 - 99 mg/dL 03/06/2018 7:57 PM [facility] [employer] [facility] TOTAL PROTEIN 7.5 6.7 - 8.6 g/dL 03/06/2018 7:57 PM [facility] [employer] [facility] ALBUMIN 4.5 3.5 - 5.2 g/dL 03/06/2018 7:57 PM [facility] [employer] [facility] BILIRUBIN TOTAL <0.2(L) 0.3 - 1.2 mg/dL 03/06/2018 7:57 PM [facility] [employer] [facility] ALKALINE PHOSPHATASE 61 35 - 104 U/L 03/06/2018 7:57 PM [facility] [employer] [facility] AST 19 <33 U/L 03/06/2018 7:57 PM [facility] [employer] [facility] Comment: Cleared of chylomicrons. Hemolysis present. Result may be falsely elevated. ALT 14 <34 U/L 03/06/2018 7:57 PM EMAIL MARKETING ASSISTANT [employer] [facility] Comment:Cleared of chylomicr ons. GFR >60 >=60 mL/min/1.7 3 sq meter 03/06/2018 7:57 PM [facility] [employer] [facility] Comment: eGFR has not been validated for [...] mL/min/1.7 3 sq meter 03/06/2018 7:57 PM [facility] [employer] [facility] ANION GAP 15 8 - 16 mmol/L 03/06/2018 7:57 PM [facility] [employer] [facility] Blood Venipuncture / Unknown 03/06/2018 3:01 PM EMAIL MARKETING ASSISTANT 03/06/2018 3:12 PM [facility] [employer] [facility] - 03/06/2018 7:57 PM EMAIL MARKETING ASSISTANT Samples containing indocyanine green cause interferences on Total and/or Direct Bilirubin and must not be measured. Marlys Mayer MD CHEMISTRY ORDERABLES [employer] [facility]AT[facility] SERVICES [facility]# [id number] [address] [address] documented in this encounter Visit Diagnoses Diagnosis Hypertriglyceridemia- Primary Pure hyperglyceridemia Metabolic syndrome Dysmetabolic Syndrome X Tobacco use Tobacco use disorder Abdominal pain, unspecified abdominal location Type 2 diabetes mellitus without complication, with long-term current use of insulin Metabolic syndrome Dysmetabolic Syndrome X Hypertriglyceridemia Pure hyperglyceridemia documented in this encounter Care Teams Video Systems Engineer Relationship Specialty Start Date End Date Guerrero Middleton PA-C PCP - General Physician Spool Hauler 02/13/18 documented as of this encounter
--- OUTSIDE RECORDS SUMMARY | 2024-05-03 20:46 | XMS_ITS | Encounter Summary ---
Author Organization [facility] Address [address] [place] [address] Care Team Providers Care Visual Manager Name Role Phone Guerrero Middleton PA-C Primary Care Provide r Encounter Details Date Type Department Care Team (Late Contact Info) Description 04/04/2018 Orders Only [facility] Heart and Vascular At [place] [address] [place] [address] Marlys Mayer MD [address] [place] [address] [address] [place], [place] [id number] Hypertriglyceridemia; Type 2 diabetes mellitus without complication, with long-term current use of insulin; Pancreatitis, recurrent Social History Tobacco Use Types [...] [facility] - [facility] [address] [place] [address] Marlys Mayer MD [address] [place], [place] [id number] documented as of this encounter Visit Diagnoses Diagnosis Hypertriglyceridemia Pure hyperglyceridemia Type 2 diabetes mellitus without complication, with long-term current use of insulin Pancreatitis, recurrent Chronic pancreatitis documented in this encounter Care Teams Visual Manager Relationship Specialty Start Date End Date Guerrero Middleton PA-C PCP - General Physician Wooden Frame Builder 02/13/18 documented as of this encounter
--- OUTSIDE RECORDS SUMMARY | 2024-05-03 20:46 | XMS_ITS | Encounter Summary ---
Author Organization [facility] Address [address] [place] [address] Care Team Providers Care Vault Maker Name Role Phone Guerrero Middleton PA-C Primary Care Provide r Reason for Visit * Auth/Cert Specialty Diagnoses / Procedures Referred By Conthardik t Referred To Contact Emergency Medicine [facility] Emergency Dept [address] [place] [address] Referral ID Status Reason Start Date Expiration Date Visits Re quested Visits Authorized [id number] 1 1 Encounter Details Date Type Department Care Team (Late st Contact Info) Description 03/08/2018 11:35 AM INTERNET MARKETING ANALYST Anesthesia Event [facility] [address] [place] [address] Annie Jeffrey MD [address] [place] [address] Anesthesia Record Procedure Summary Procedure Name Responsible Anesthesiologist Anesthesia Start Time Anesthesia Stop Time ESOPHAGOGASTRODUODENOSCOPY (Mouth) Annie Jeffrey MD 03/08/18 1135 03/08/18 1159 Events Date Time Event Comment 03/08/2018 1120 1135 AN Equip Check Anesthesia eq uipment and materials checked in accordance with local policy. 1135 An Start 1135 An Start Data 1145 Pre-Induction Immediate pre- induction anesthetic assessment performed. Vital signs as noted on graphic. 1147 An Induction 1147 Anesthesia Ready 1154 an stop data 1159 An Stop Meds Name Total propofol (DIPRIVAN) 10??mg/mL injection 200 mg lidocaine PF (XYLOCAINE MPF) 20 mg/mL sy ringe 40 mg lactated Ringers solution 600 mL * Agents Name O2 Inspired O2 N2O Inspired N2O * Blood No blood administrations on file. Lines, Drains, and Airways Type Details Placement Removal Peripheral IV Pre-Hospital Start: No; Orientation: Right; Location: Arm; Gauge: 20 gauge; Removal Indication: no longer indicated; Removal Interventions: pressure dressing, catheter intact, direct pressure 03/07/18 1416 by Ambika Llanes RN 03/09/18 1429 by Amena Carlisle RN Supraglottic Airway Type: nasal cannula; Confirmation: end tidal CO2, satisfactory chest rise 03/08/18 1117 by Annie Jeffrey MD 03/10/18 0338 by PROVIDER, DISCHARGE PATIENT documented in this encounter Social History Tobacco [...] of this encounter OR Notes * Anesthesia Post-Op Follow-up Note - Nahed Chawla CRNA - 03/09/2018 8:22 AM CST 03/09/2018 8:22 AM Casandra Jones No apparent Anesthesia related complications Nahed Chawla CRNA RNET MARKETING ANALYST * Anesthesia Postprocedure Evaluation - Annie Jeffrey MD - 03/08/2018 12:01 PM CST Post Anesthesia Evaluation Vitals: BP 105/60 (BP Location: Left arm, Patient Position (BP): Lying left side) Pulse 65 Temp36.2 ??C (Temporal) Resp 16 Ht 5' 4 (1.626 m) Wt 86.2 kg (190 lb) SpO2 93% ? No BMI 32.61 kg/m?? Pain Rating: Pain Rating: Rest: 4 (03/08/18 1050) Pain Rating: Activity: 4 (03/08/18 3573) Nausea/Vomiting: no nausea and no vomiting Post-Op hydration: well hydrated Respiratory function: no respiratory symptoms Airway patency: normal Cardiovascular function: Normal - Regular rate and rhythm Mental status, LOC: 0=alert; keenly responsive Patient participated in evaluation: yes Unanticipated Events: no Annie Jeffrey MD RNET MARKETING ANALYST * Anesthesia Handoff - Annie Jeffrey MD - 03/08/2018 12:01 PM INTERNET MARKETING ANALYST Post-Anesthetic transfer of care report elements to appropriate post-anesthesia recovery environment completed in accordance with procedure. I completed my handoff to the receiving nurse during which we: 1. Identified the patient 2. Identified the responsible provider 3. Reviewed the pertinent medical history 4. Discussed the surgical course 5. Reviewed intra-op anesthesia management and issues during anesthesia 6. Set expectations for post-procedure period 7. Allowed opportunity for questions and acknowledgement of understanding. Vital Signs: BP: 105/60 (03/08/2018 11:57 AM) Pulse: 65 (03/08/2018 11:57 AM) Heart Rate: 76 bpm (03/07/2018 10:09 PM) Temp: 36.2 ??C (03/08/2018 11:57 AM) Resp: 16 (03/08/2018 11:57 AM) SpO2: 93 % (03/08/2018 11:57 AM) 12:01 PM Annie Jeffrey MD RNET MARKETING ANALYST * Anesthesia Preprocedure Evaluation - Annie Jeffrey MD - 03/08/2018 11:18 AM CST Relevant Problems No relevant active problems Anesthesia Evaluation Patient summary reviewed and Nursing notes reviewed Airway Mallampati: II TM distance: >3 FB Neck ROM: full Dental - normal exam Pulmonary - normal exam breath sounds clear to auscultation ROS comment: smoker Cardiovascular - normal exam Exercise tolerance: good Rhythm: regular Rate: normal Neuro/Psych (+) psychiatric history Comments: anxiety GI/Hepatic/Renal (+) GERD, Comments: abd pain pancreatitis Endo/Other (+) diabetes mellitus type 2 well controlled, hypothyroidism, Abdominal Anesthesia History No history of anesthetic complications. Anesthesia Plan ASA 3 MAC Intravenous induction NPO status > 8 hours Anesthetic plan and risks discussed with Patient. Plan discussed with Surgeon. RNET MARKETING ANALYST documented in this encounter Miscellaneous Notes * Addendum Note - Nahed Chawla CRNA - 03/09/2018 8:23 AM CST Addendum created 03/09/18822 by Nahed Chawla CRNA Sign clinical note RNET MARKETING ANALYST documented in this encounter Plan of Treatment Upcoming Encounters Date Type Department Care Team (Late st Contact Info) Description 09/14/2024 3:00 PM CDT Office Visit [facility] [address] [place] [address] Marlys Mayer MD [address] [place] [address] documented as of this encounter Visit Diagnoses Not on filedocumented in this encounter Administered Medications Inactive Administered Medications - up to 3 most recent administrations Medication Order MAR Action Action Date Dose Rate Site lactated Ringers solution IV, at 125 mL/hr, PRE-PROCEDURE CONTINUOUS, Starting on 03/08/18 at 1100, Until 03/08/18 at 1254, Routine Continue from Pre-Op 03/08/2018 11:53 AM INTERNET MARKETING ANALYST New Bag 03/08/2018 10:55 AM INTERNET MARKETING ANALYST 125 mL/hr lidocaine PF (XYLOCAINE MPF) 100 mg/5 mL (2 %) injection INTRA-PROCEDURE PRN, Starting on 03/08/18 at 1147, Until 03/08/18 at 1159, Routine, Anesthesia Intra-op Given 03/08/2018 11:47 AM INTERNET MARKETING ANALYST 40 mg propofol (DIPRIVAN) injection INTRA-PROCEDURE PRN, Starting on 03/08/18 at 1147, Until 03/08/18 at 1159, Anesthesia Intra-op Given 03/08/2018 11:47 AM INTERNET MARKETING ANALYST 200 mg documented in this encounter Care Teams Vault Maker Relationship Specialty Start Date End Date Guerrero Middleton PA-C PCP - General Physician Inventory Associate 02/13/18 documented as of this encounter
--- OUTSIDE RECORDS SUMMARY | 2024-05-03 20:47 | XMS_ITS | Encounter Summary ---
Author Organization [facility] Address [address] [place] [address] Care Team Providers Care Power Barker Name Role Phone Unavailable Primary Care Provider Unavailabl e Reason for Visit * Reason Onset Date Comments Medication Refill 09/04/2012 Encounter Details Date Type Department Care Team (Late Contact Info) Description 09/04/2012 Refill [facility] Endocrinology [address] [place] [address] Prudence Gates MD [address] [place] [address] Social History Tobacco Use Types Packs/Day Years [...] and Vascular - [place] [address] [place] [address] Marlys Mayer MD [address] [place] [address] documented as of this encounter Visit Diagnoses Not on filedocumented in this encounter
--- OUTSIDE RECORDS SUMMARY | 2024-05-03 20:47 | XMS_ITS | Encounter Summary ---
Author Organization [facility] Address [address] [place] [address] Care Team Providers Care Battery Builder Name Role Phone Unavailable Primary Care Provider Unavailabl e Reason for Visit * Reason Onset Date Comments Medication Refill 04/16/2012 Encounter Details Date Type Department Care Team (Late Contact Info) Description 04/16/2012 Telephone [facility] Endocrinology [address] [place] [address] Prudence Gates MD [address] [place], [place] [id number] Medication Refill Social History Tobacco Use Types Packs/Day Years [...] Upcoming Encounters Date Type Department Care Team ([facility] Contact Info) Description 09/14/2024 3:00 PM CDT Office Visit [facility] Heart and Vascular - [place] [address] [place] [address] Marlys Mayer MD [address] [place], [place] [id number] documented as of this encounter Visit Diagnoses Not on filedocumented in this encounter
--- OUTSIDE RECORDS SUMMARY | 2024-05-03 20:47 | XMS_ITS | Encounter Summary ---
Author Organization [facility] Address [address] [place] [address] Care Team Providers Care Emergency Generator Mechanic Name Role Phone Unavailable Primary Care Provider Unavailabl e Reason for Visit * Reason Onset Date Comments Medication Refill 03/19/2013 Encounter Details Date Type Department Care Team (Late st Contact Info) Description 03/19/2013 Telephone [facility] Endocrinology [address] [place] [address] Prudence Gates MD [address] [place] [address] Medication Refill Social History Tobacco Use Types [...] * Telephone Encounter - Suze Jackson - 03/20/2013 3:13 PM CST Ok , forwarded note to ruben for letter NT AGENT * Telephone Encounter - Prudence Gates MD - 03/20/2013 2:59 PM PATENT AGENT I refilled her meds x 30 days, please send discharge letter, since she cancelled and also no showed NT AGENT * Telephone Encounter - Suze Jackson - 03/19/2013 6:31 PM CST Pharm sent refill request for her levothyroxoine and crestor . Pt last seen 05/21/12 , she canceled 11/17/12 and n/s 12/15/2012. What do you want to do , one mo and send warning letter? NT AGENT documented in this encounter Plan of Treatment Upcoming Encounters Date Type Department Care Team (Late st Contact Info) Description 09/14/2024 3:00 PM CDT Office Visit [facility] Heart and Vascular - [place] [address] [place] [address] Marlys Mayer MD [address] [place] [address] documented as of this encounter Visit Diagnoses Diagnosis Unspecified hypothyroidism- Primary documented in this encounter
--- OUTSIDE RECORDS SUMMARY | 2024-05-03 20:47 | XMS_ITS | Encounter Summary ---
Author Organization [facility] Address [address] [place] [address] Care Team Providers Care Fiber Technician Name Role Phone Unavailable Primary Care Provider Unavailabl e Reason for Visit * Reason Onset Date Comments Results 05/30/2011 Encounter Details Date Type Department Care Team (Late st Contact Info) Description 05/30/[address] [facility] Endocrinology [address] [place] [address] Sagrario Gates MD [address] [place] [address] Results Social History Tobacco Use Types Packs/Day [...] encounter Miscellaneous Notes * Telephone Encounter - David Richardson - 05/30/2011 6:20 PM CST Informed pt per dr grissom below . Forwarded copy of report to Dr Mitchell NEYMAN TOOL AND DIE MAKER * Telephone Encounter - David Richardson - 05/30/2011 6:20 PM CST Message copied by DAVID RICHARDSON on SatMay 30, 2011 6:20 PM ------ Message from: SAGRARIO GATES Created: SatMay 28, 2011 4:55 PM Please let the patient know that There is no adrenal lesion. She does have a lesion in the liver, that needs to be addressed, pleaseforward results to PCP so she can discuss, if she does not have one, refer to GI Thank you NEYMAN TOOL AND DIE MAKER documented in this encounter Plan of Treatment Upcoming Encounters Date Type Department Care Team (Late st Contact Info) Description 09/14/2024 3:00 PM CDT Office Visit [facility] Heart and Vascular - [place] [address] [place] [address] Marlys Mayer MD [address] [place] [address] documented as of this encounter Procedures Procedure Name Priority Date/Time Associated Diagnosis Comments TSH Routine 06/01/2011 8:46 AM JOURNEYMAN TOOL AND DIE MAKER documented in this encounter Results * TSH (06/01/2011 8:46 AM JOURNEYMAN TOOL AND DIE MAKER) TSH 3.11 mIU/L [facility] Comment: Reference Range > or = 20 Years ??0.40-4.50 ? Ranges First trimester ?0.20-4.70 Second trimester ?? 0.30-4.10 Third trimester ?0.40-2.70 REPORT COMMENT: COLLECTION REQUIREMENTS NOT MET. PATIENT ADVISED TO RETURN. Test Performed at: [facility] [address] [place], [place] ??[address] DELMA MAURER DO,MPH 06/01/2011 8:46 AM JOURNEYMAN TOOL AND DIE MAKER Sagrario Gates MD CHEMISTRY ORDERAB LES INTERFACE SYSTEM Refer to clinic/hospital department [facility] [address] [place] [address] documented in this encounter Visit Diagnoses Not on filedocumented in this encounter
--- OUTSIDE RECORDS SUMMARY | 2024-05-03 20:47 | XMS_ITS | Encounter Summary ---
Author Organization [facility] Address [address] [place] [address] Care Team Providers Care Account Group Supervisor Name Role Phone Unavailable Primary Care Provider Unavailabl e Reason for Visit * Reason Comments Thyroid Problem F/U. refills needed depending on labs. 90 day supply. Encounter Details Date Type Department Care Team ([facility] Contact Info) Description 12/18/2011 2:30 PM CDT Office Visit [facility] Endocrinology [address] [place] [address] Prudence Gates MD [address] [place], [place] [phone] Unspecified hypothyroidism; Metabolic syndrome; Combined hyperlipidemia; Smoker; Family history of diabetes mellitus; Panic attacks Social History Tobacco Use Types Packs/Day Years [...] Reading Time Taken Comments Blood Pressure 112/74 12/18/2011 2:51 PM CDT Pulse 78 12/18/2011 2:51 PM CDT Temperature - - Respiratory Rate - - Oxygen Saturation - - Inhaled Oxygen Concentration - - Weight 81.6 kg (180 lb) 12/18/2011 2:51 PM CDT Height 165.1 cm (5' 5 ) 12/18/2011 2:51 PM CDT Body Mass Index 29.95 12/18/2011 2:51 PM CDT documented in this encounter Progress Notes * Prudence Gates MD - 12/18/2011 3:18 PM CDT The patient came for follow up of PCOS, metabolic syndrome, prediabetes and significant combined hyperlipidemia. She was trying very hard to loose weight, she got , she has been very anxious,depressed and is having panic attacks. Dr Mitchell prescribed celexa which worked in the past but nowis not. She restarted smoking. She stopped with Chantix last time and would like to retry. She had no side effects from it. Casandra was diagnosed with PCOS. During her third she had gestational diabetes. She complains of headaches. He denies having any acne She did have a partial hysterectomy in 2006 She is on metformin She lost 8 lbs from her last appointment but had lost more and regained She has a strong family history of DM and cardiovascular disease. Breakfast: oatmeal and fruit Lunch: sandwich or salad Dinner: not much Bedtime snack: occasionally cookie and ice cream. No chips, no soda. Snacks in between carrots Review of Systems - General ROS: negative for fever Psychological ROS: negative for anxiety or depressive symptoms Endocrine ROS: negative for polyuria/polydipsia or new [...] ROS: negative for TIA or stroke symptoms PMHx, PSHx, social Hx, family Hx, medications and allergies reviewed (see visit navigator) Meds: reviewed (see visit navigator) PE:The patient is alert oriented x3 BP 112/74 Pulse 78 Ht 5' 5 (1.651 m) Wt 180 lb (81.647 kg) BMI 29.95 kg/m2 Neck is supple, there is no thyroid enlargement. There are no enlarged Lymph nodes CV: S1S2 normal in rhythm and rate Resp: CTA bilaterally Abd: soft, non tender, no organomegaly Ext: No edema Labs Lab Results Component Value Date TSH 0.73 08/10/2011 Lab Results Component Value Date CHOLESTEROL 195 08/10/2011 HDL 31* 08/10/2011 LDL CALCULATED 100 08/10/2011 LDL CHOLESTEROL, DIRECT 110 08/10/2011 TRIGLYCERIDE 318* 08/10/2011 ASSESSMENT: Encounter Diagnoses Name Primary? Unspecified hypothyroidism ??? Metabolic syndrome ??? Combined hyperlipidemia ??? Smoker ??? Family history of diabetes mellitus ??? Panic attacks PLAN: Lipids, TSH pending Orders Placed This Encounter ??? varenicline (CHANTIX) 0.5 mg Oral Tab ??? rosuvastatin (CRESTOR) 5 mg Oral tablet ??? spironolactone (ALDACTONE) 100 mg Oral tablet ??? SYNTHROID 112 mcg Oral tablet ??? ALPRAZolam (XANAX) 0.5 mg Oral tablet Discussed how to take her chantix PRN alprazolam to follow with Dr Mitchell Needs to restart walking Continue 1 hour of exercise per day as she is doing Labs reviewed as well as targets. Thank you very much for allowing us to participate in this patient care. If you have any questions or concerns, please do not hesitate to contact us, I will keep you updated in this patient's progress and test results Have a great day, Sincerely yours Prudence Gates * Nahed France - 12/18/2011 2:51 PM CDT Pt here for Thyroid F/U. Recent labs. Done this morning, Pending. Pt not feeling well. documented in this encounter Plan of Treatment Upcoming Encounters Date Type Department Care Team (Late st Contact Info) Description 09/14/2024 3:00 PM CDT Office Visit [facility] Heart and Vascular - [facility] [address] [place] [address] Marlys Mayer MD [address] [place] [address] documented as of this encounter Visit Diagnoses Diagnosis Unspecified hypothyroidism Metabolic syndrome Dysmetabolic Syndrome X Combined hyperlipidemia Mixed hyperlipidemia Smoker Tobacco use disorder Family history of diabetes mellitus Panic attacks Panic disorder without agoraphobia documented in this encounter
--- OUTSIDE RECORDS SUMMARY | 2024-05-03 20:47 | XMS_ITS | Encounter Summary ---
Author Organization [facility] Address [address] [place] [address] Care Team Providers Care Machine Sand Mixer Name Role Phone Unavailable Primary Care Provider Unavailabl e Reason for Visit * Reason Comments Diabetes F/U. unsure of refil ls. Encounter Details Date Type Department Care Team (Late st Contact Info) Description 06/26/2011 2:45 PM TRAVEL SALES CONSULTANT Office Visit [facility] Endocrinology [address] [place] [phone] Prudence Gates MD [address] [place] [address] PCOS (polycystic ovarian syndrome); Metabolic syndrome; Fatty liver; Familial combined hyperlipidemia; Unspecified hypothyroidism; Smoker; Vitamin D deficiency Social History Tobacco Use Types Packs/Day Years [...] Sign Reading Time Taken Comments Blood Pressure 114/68 06/26/2011 2:56 PM TRAVEL SALES CONSULTANT Pulse 72 06/26/2011 2:56 PM TRAVEL SALES CONSULTANT Temperature - - Respiratory Rate - - Oxygen Saturation - - Inhaled Oxygen Concentration - - Weight 85.3 kg (188 lb) 06/26/2011 2:56 PM TRAVEL SALES CONSULTANT Height 162.6 cm (5' 4 ) 06/26/2011 2:56 PM TRAVEL SALES CONSULTANT Body Mass Index 32.27 06/26/2011 2:56 PM TRAVEL SALES CONSULTANT documented in this encounter Progress Notes * Prudence Gates MD - 06/26/2011 3:11 PM CST The patient came for follow up of PCOS, metabolic syndrome, prediabetes and significant combined hyperlipidemia. Mrs. Faulkner went to see her STABLE MANAGER a few weeks ago. Ms Wesley did a whole work up finding an array ofabnormalities reason why she was referred. Casandra was diagnosed with PCOS before her pregnancies. During her third she had gestationaldiabetes. She did not have problems conceiving, she does have increase body hair, but not strong body odor He denies having any acne He had a CT of the abdomen and was told her ovaries were abnormal as well as her adrenal gland (this was done years ago) She did have a partial hysterectomy in 2006 She was on metformin during . She eats healthy because her has DM. She has a strong family history of DM She met with a dietitian several times, the last one several years ago. She exercises 1/2 hour a day, walks. Diet review Breakfast: Broccoli ham and cheese (chedar) Lunch: salad protein Dinner:meat vegetables and salad. REVIEW OF SYSTEMS Review of Systems Constitutional: Positive for fatigue and unexpected weight change. Eyes: Negative. Respiratory: Negative. Cardiovascular: Negative. Gastrointestinal: Negative. Genitourinary: Negative. Musculoskeletal: Negative. Skin: Negative. Neurological: Positive for numbness and headaches. Psychiatric/Behavioral: Anxiety and depression Current Outpatient Prescriptions Medication Sig Dispense Refill ??? cefdinir (OMNICEF) 300 mg Oral capsule Take 300 mg by mouth every 12 hours. ??? SYNTHROID 112 mcg Oral tablet Take 1 Tab by mouth daily plastic straightening roll operator. TAKE WITHOUT FOOD 30 Tab1 ??? ibuprofen (MOTRIN) 800 mg Oral tablet Take 800 mg by mouth every 6 hours as needed. ??? ERGOCALCIFEROL, VITAMIN D2, (VITAMIN D ORAL) Take by mouth. ??? ketorolac tromethamine (TORADOL) 10 mg Oral tablet Take 10 mg by mouth every 4 hours as needed. No Known Allergies Past Medical History Diagnosis Date ??? Metabolic syndrome 05/15/2011 ??? History of gestational diabetes 05/15/2011 ??? Family history of diabetes mellitus 05/15/2011 ??? Family history of early CAD 05/15/2011 ??? PCOS (polycystic ovarian syndrome) 05/15/2011 Past Surgical History Procedure Date ??? Hx hysterectomy partial due to endometriosis 2006 ??? Hx appendectomy Family History Problem Relation Age of Onset ??? Diabetes Father ??? High Cholesterol Father ??? Hypertension Father ??? Stroke Mother ??? Heart Disease Mother ??? Thyroid Disease Mother ??? High Cholesterol Mother ??? Heart Disease Maternal Grandmother ??? Diabetes Maternal Grandmother ??? Diabetes Paternal Grandmother History Substance Use Topics ??? Smoking status: Current Everyday Smoker -- 1.0 packs/day for 18 years ??? Smokeless tobacco: Not on file ??? Alcohol Use: No PHYSICAL EXAM BP 114/68 Pulse 72 Ht 5' 4 (1.626 m) Wt 188 lb (85.276 kg) BMI 32.27 kg/m2 Physical Exam Constitutional: She appears well-developed. HENT: Head: Normocephalic. Eyes: Conjunctivae are normal. Neck: No thyromegaly present. Cardiovascular: Normal rate and regular rhythm. Pulmonary/Chest: Effort normal and breath sounds normal. Abdominal: Soft. Bowel sounds are normal. Musculoskeletal: Normal range of motion. Neurological: She is alert. She has normal reflexes. Skin: Skin is warm. Excessive body hair, she also has abdominal hair. Psychiatric: She has a normal mood and affect. see media ASSESSMENT: Encounter Diagnoses Name Primary? PCOS (polycystic ovarian syndrome) ??? Metabolic syndrome ??? Fatty liver ??? Familial combined hyperlipidemia ??? Unspecified hypothyroidism ??? Smoker ??? Vitamin D deficiency PLAN: Orders Placed This Encounter ??? Lipid Panel ??? HEPATIC FUNCTION PANEL ??? LDL CHOLESTEROL, DIRECT ??? TSH ??? Vitamin D ??? metFORMIN (GLUCOPHAGE) 500 mg Oral tablet Restart 1 dinner ??? fenofibrate (TRIGLIDE) 160 mg Oral Tab (mechanism of action and side effects discussed) Consider adding fish oil Because of Her condition I advised the patient extensively on a healthy diet consistent on fresh fruit, vegetables and whole grains. She is to Walk. Daily exercise prevents metabolic conditions and this was also discussed extensively. EL SALES CONSULTANT * Nahed France 06/26/2011 2:53 PM CST Pt here for D/M F/U. Recent labs. See lab tab for results. Pt feels better. B/G-101 EL SALES CONSULTANT documented in this encounter Plan of Treatment Upcoming Encounters Date Type Department Care Team (Late st Contact Info) Description 09/14/2024 3:00 PM CDT Office Visit [facility] Heart and Vascular - [place] [address] [place] [address] Marlys Mayer MD [address] [place] [address] documented as of this encounter Procedures Procedure Name Priority Date/Time Associated Diagnosis Comments VITAMIN D 25 HYDROXY Routine 08/10/2011 7:21 AM CDT TSH Routine 08/10/2011 7:21 AM CDT LDL CHOLESTEROL, DIRECT Routine 08/10/2011 7:21 AM CDT HEPATIC FUNCTION PANEL Routine 08/10/2011 7:21 AM CDT LIPID PANEL Routine 08/10/2011 7:21 AM CDT documented in this encounter Results * VITAMIN D 25 HYDROXY (08/10/2011 7:21 AM CDT) VITAMIN D, 25 OH, TOTAL 57 30 - 100 ng/mL [facility] VITAMIN D, 25 OH, D2 51 ng/mL [facility] VITAMIN D, 25 OH, D3 6 ng/mL [facility] Comment: 25-OHD3 indicates both endogenous production and supplementation. 25-OHD2 is an indicator of exogenous sources such as diet or supplementation. Therapy is based on measurement of Total 25-OHD, with levels <20 ng/mL indicative of Vitamin D deficiency while levels between 20 ng/mL and 30 ng/mL suggest insufficiency. Optimal levels are >/=30 ng/mL. REPORT COMMENT: FASTING Test Performed at: [facility] [place] [address] [place], [place] ??[phone] CARMEN RICHMOND MD ?? 08/10/2011 7:21 AM CDT Prudence Gates MD CHEMISTRY ORDERAB LES Performing Organization Address [facility] de Phone Number INTERFACE SYSTEM Refer to clinic/hospital department [facility] [address] [place] [address] * TSH (08/10/2011 7:21 AM CDT) Pathologist [facility] TSH 0.73 mIU/L [facility] Comment: Reference Range > or = 20 Years ??0.40-4.50 ? Ranges First trimester ?0.20-4.70 Second trimester ?? 0.30-4.10 Third trimester ?0.40-2.70 REPORT COMMENT: FASTING Test Performed at: [facility] [address] ??[address] DELMA MAURER DO,MPH 08/10/2011 7:21 AM CDT Prudence Gates MD CHEMISTRY ORDERAB LES Performing Organization Address [facility] de Phone Number INTERFACE SYSTEM Refer to clinic/hospital department [facility] [address] [place] [address] * (ABNORMAL) HEPATIC FUNCTION PANEL (08/10/2011 7:21 AM CDT) TOTAL PROTEIN 6.6 6.2 - 8.3 g/dL [facility] ALBUMIN 4.5 3.6 - 5.1 g/dL [facility] GLOBULIN 2.1(L) 2.2 - 3.9 g/dL (calc) [facility] ALBUMIN/GLOBULIN RATIO 2.1 1.0 - 2.1 (calc) [facility] BILIRUBIN TOTAL 0.3 0.2 - 1.2 mg/dL [facility] BILIRUBIN DIRECT 0.1 < OR = 0.2 mg/dL [facility] BILIRUBIN INDIRECT 0.2 0.2 - 1.2 mg/dL (calc) [facility] ALKALINE PHOSPHATASE 53 33 - 115 U/L [facility] AST 17 10 - 30 U/L [facility] . [facility] ALT 18 6 - 40 U/L [facility] Comment: REPORT COMMENT: FASTING Test Performed at: [facility] [address] ??[phone] DELMA MAURER DO,MPH 08/10/2011 7:21 AM CDT Prudence Gates MD CHEMISTRY ORDERAB LES Performing Organization Address [facility] Phone Number INTERFACE SYSTEM Refer to clinic/hospital department [facility] [address] [place] [phone] * LDL CHOLESTEROL, DIRECT (08/10/2011 7:21 AM CDT) LDL CHOLESTEROL, DIRECT 110 <130 mg/dL [facility] Comment: Desirable range <100 mg/dL for patients with CHD or diabetes and <70 mg/dL for diabetic patients with known heart disease. Test Performed at: [facility] ??[phone] DELMA MAURER DO,MPH 08/10/2011 7:21 AM CDT Prudence Gates MD CHEMISTRY ORDERAB LES Performing Organization Address [facility] de Phone Number INTERFACE SYSTEM Refer to clinic/hospital department [facility] [address] [place] [address] * (ABNORMAL) LIPID PANEL (08/10/2011 7:21 AM CDT) CHOLESTEROL 195 125 - 200 mg/dL [facility] Comment: Test Performed at: [facility] ??[phone] DELMA MAURER DO,MPH HDL 31(L) > OR = 46 mg/dL [facility] TRIGLYCERIDE 318(H) <150 mg/dL [facility] LDL CALCULATED 100 <130 mg/dL (calc) [facility] Comment: Desirable range <100 mg/dL for patients with CHD or diabetes and <70 mg/dL for diabetic patients with known heart disease. CHOL/HDL RATIO 6.3(H) < OR = 5.0 (calc) [facility] RESULT 164 mg/dL (calc) [facility] Comment: Component Name: ??NON-HDL CHOLESTEROL Target for non-HDL cholesterol is 30 mg/dL higher than LDL cholesterol target. 08/10/2011 7:21 AM CDT Prudence Gates MD CHEMISTRY ORDERAB LES INTERFACE SYSTEM Refer to clinic/hospital department [facility] [address] [place] [id number] documented in this encounter Visit Diagnoses Diagnosis PCOS (polycystic ovarian syndrome) Polycystic ovaries Metabolic syndrome Dysmetabolic Syndrome X Fatty liver Other chronic nonalcoholic liver disease Familial combined hyperlipidemia Mixed hyperlipidemia Unspecified hypothyroidism Smoker Tobacco use disorder Vitamin D deficiency Unspecified vitamin D deficiency documented in this encounter
--- OUTSIDE RECORDS SUMMARY | 2024-05-03 20:47 | XMS_ITS | Encounter Summary ---
Author Organization [facility] Address [address] [place] [address] Care Team Providers Care Attraction Attendant Name Role Phone Unavailable Primary Care Provider Unavailabl e Reason for Visit * Reason Onset Date Comments Medication Refill 01/09/2012 Encounter Details Date Type Department Care Team ([facility] Contact Info) Description 01/09/2012 Refill [facility] Endocrinology [address] [place] [address] Prudence Gates MD [address] [place], [place] [id number] Social History Tobacco Use Types Packs/Day Years [...] encounter Miscellaneous Notes * Telephone Encounter - Teressa Lane - 01/09/2012 1:16 PM CDT Rec'd Metformin refill request from Tim; order pended for dr dewey. documented in this encounter Plan of Treatment Upcoming Encounters Date Type Department Care Team ([facility] Contact Info) Description 09/14/2024 3:00 PM CDT Office Visit [facility] Heart and Vascular - [facility] [address] [place] [address] Marlys Mayer MD [address] [place] [address] documented as of this encounter Visit Diagnoses Not on filedocumented in this encounter
--- OUTSIDE RECORDS SUMMARY | 2024-05-03 20:47 | XMS_ITS | Encounter Summary ---
Author Organization [facility] Address [address] [place] [address] Care Team Providers Care Door Technician Name Role Phone Unavailable Primary Care Provider Unavailabl e Reason for Referral * Outpatient Services (Routine) - Closed Specialty Diagnoses / Procedures Referred By Tequila bowman Referred To Contact MRI Diagnoses Metabolic syndrome History of gestational diabetes PCOS (polycystic ovarian syndrome) Adrenal mass Familial combined hyperlipidemia Hypothyroidism Procedures MRI ABDOMEN W WO CONTRAST Prudence Gates MD [address] [address] Referral ID Status Reason Start Date Expiration Date Visits Re quested Visits Authorized [id number] Closed 05/15/2011 05/14/2012 1 1 SITION ADVISOR Reason for Visit * Outpatient Services (Routine) - Closed Specialty Diagnoses / Procedures Referred By Tequila bowman Referred To Contact MRI Diagnoses Metabolic syndrome History of gestational diabetes PCOS (polycystic ovarian syndrome) Adrenal mass Familial combined hyperlipidemia Hypothyroidism Procedures MRI ABDOMEN W WO CONTRAST Prudence Gates MD [address] [address] Referral ID Status Reason Start Date Expiration Date Visits Re quested Visits Authorized [id number] Closed 05/15/2011 05/14/2012 1 1 Encounter Details Date Type Department Care Team (Latest Contact Info) Description 05/25/2011 7:45 AM TRANSITION ADVISOR - 05/25/2011 11:59 PM TRANSITION ADVISOR Hospital Encounter [facility] MRI [address] [place] [address] Prudence Gates MD [address] [place] [address] Discharge Disposition: Home or Self Care Social [...] - Inhaled Oxygen Concentration - - Weight 88.9 kg (196 lb) 05/25/2011 8:24 AM TRANSITION ADVISOR Height - - Body Mass Index 33.64 05/15/2011 10:58 AM TRANSITION ADVISOR documented in this encounter Medications at Time of Discharge Medication Sig Dispensed Refills Start Date End Date ketorolac tromethamine (TORADOL) 10 mg Oral tabletIndications:Metabol ic syndrome,History of gestational diabetes,PCOS (polycystic ovarian syndrome),Adrenal mass,Familial combined hyperlipidemia,Hypothyroi dism Take 10 mg by mouth every 4 hours as needed. 03/06/2018 ibuprofen (MOTRIN) 800 mg Oral tabletIndications:Metabol ic syndrome,History of gestational diabetes,PCOS (polycystic ovarian syndrome),Adrenal mass,Familial combined hyperlipidemia,Hypothyroi dism Take 200 mg by mouth every 8 hours as needed . 03/09/2018 ERGOCALCIFEROL, VITAMIN D2, (VITAMIN D ORAL)Indications:Metaboli c syndrome,History of gestational diabetes,PCOS (polycystic ovarian syndrome),Adrenal mass,Familial combined hyperlipidemia,Hypothyroi dism Take by mouth. 06/26/2011 SYNTHROID 100 mcg Oral tabletIndications:Metabol ic syndrome,History of gestational diabetes,PCOS (polycystic ovarian syndrome),Adrenal mass,Familial combined hyperlipidemia,Hypothyroi dism Take 1 Tab by mouth daily [place]. TAKE WITHOUT FOOD 60 Tab 0 05/15/2011 06/05/2011 documented as of this encounter Miscellaneous Notes * Scanned Form - [employer], [employer] - 06/10/2011 5:45 PM CST SITION ADVISOR documented in this encounter Plan of Treatment Upcoming Encounters Date Type Department Care Team (Late st Contact Info) Description 09/14/2024 3:00 PM CDT Office Visit [facility] Heart and Vascular - [place] [address] [place] [address] Marlys Mayer MD [address] [place] [address] documented as of this encounter Procedures Procedure Name Priority Date/Time Associated Diagnosis Comments MRI ABDOMEN W WO CONTRAST Routine 05/25/2011 8:29 AM TRANSITION ADVISOR Metabolic syndrome History of gestational diabetes PCOS (polycystic ovarian syndrome) Adrenal mass Familial combined hyperlipidemia Hypothyroidism documented in this encounter Results * MRI ABDOMEN W WO CONTRAST (05/25/2011 8:29 AM TRANSITION ADVISOR) Anatomical Region Laterality Modality Abdomen Magnetic Resonan ce 05/25/2011 7:50 AM TRANSITION ADVISOR Impressions 05/25/2011 4:47 PM TRANSITION ADVISOR IMPRESSION: 1. Normal adrenals. No evidence of an adrenal mass. 2. Mild hepatic steatosis. 3. Right hepatic lobe enhancing lesion. The appearance is nonspecific but the differential diagnosis would include benign arterially enhancing primary hepatic lesions such as focal nodular hyperplasia, hemangioma, and adenoma. Hepatoma or metastatic disease is considered less likely without prior history of risk factors or primary malignancy. 6 to 12 month followup exam using Eovist contrast is recommended. ?? Narrative 05/25/2011 4:47 PM TRANSITION ADVISOR MRI ABDOMEN WITH AND WITHOUT IV CONTRAST, 05/25/2011 INDICATION: Metabolic syndrome, adrenal mass. TECHNIQUE: Multiplanar, multisequence without and with intravenous gadolinium on a 3 T MRI. COMPARISON: None. FINDINGS: There is subtle loss of hepatic parenchymal signal on opposed phase imaging suggestive of steatosis. The liver is normal in size. Within the right hepatic lobe in segment 8 is a small focus of hyperintense T2 signal measuring 1.4 cm. This is slightly hypointense on the T1-weighted sequence. Following contrast administration, the lesion is hyperintense on the immediate arterial phase exam and remains hyperintense on the delayed phases. No other enhancing liver lesions are present. There are nonenhancing hypointense foci on the opposed phase imaging around the gallbladder fossa which are most compatible with areas of focal intense fatty change. The gallbladder, spleen, pancreas, and right kidney are normal. Within the right renal lower pole is a rounded T2 hyperintense nonenhancing 1 cm lesion most compatible with a cyst. No enhancing renal lesion is seen. There is no hydronephrosis. The adrenal glands are normal in size and signal and no adrenal mass is identified. The bowel loops are normal in caliber. The abdominal aorta is normal in caliber. There is no ascites or loculated fluid collection. No lymphadenopathy is seen. Procedure Note Valeriy Sevilla MD - 05/25/2011 MRI ABDOMEN WITH AND WITHOUT IV CONTRAST, 05/25/2011 INDICATION: Metabolic syndrome, adrenal mass. TECHNIQUE: Multiplanar, multisequence without and with intravenous gadolinium on a 3 T MRI. COMPARISON: None. FINDINGS: There is subtle loss of hepatic parenchymal signal on opposed phase imaging suggestive of steatosis. The liver is normal in size. Within the right hepatic lobe in segment 8 is a small focus of hyperintense T2 signal measuring 1.4 cm. This is slightly hypointense on the T1-weighted sequence. Following contrast administration, the lesion is hyperintense on the immediate arterial phase exam and remains hyperintense on the delayed phases. No other enhancing liver lesions are present. There are nonenhancing hypointense foci on the opposed phase imaging around the gallbladder fossa which are most compatible with areas of focal intense fatty change. The gallbladder, spleen, pancreas, and right kidney are normal. Within the right renal lower pole is a rounded T2 hyperintense nonenhancing 1 cm lesion most compatible with a cyst. No enhancing renal lesion is seen. There is no hydronephrosis. The adrenal glands are normal in size and signal and no adrenal mass is identified. The bowel loops are normal in caliber. The abdominal aorta is normal in caliber. There is no ascites or loculated fluid collection. No lymphadenopathy is seen. IMPRESSION IMPRESSION: 1. Normal adrenals. No evidence of an adrenal mass. 2. Mild hepatic steatosis. 3. Right hepatic lobe enhancing lesion. The appearance is nonspecific but the differential diagnosis would include benign arterially enhancing primary hepatic lesions such as focal nodular hyperplasia, hemangioma, and adenoma. Hepatoma or metastatic disease is considered less likely without prior history of risk factors or primary malignancy. 6 to 12 month followup exam using Eovist contrast is recommended. Prudence Gates MD MR ORDERABLES documented in this encounter Visit Diagnoses Diagnosis Metabolic syndrome Dysmetabolic Syndrome X History of gestational diabetes Personal history of gestational diabetes PCOS (polycystic ovarian syndrome) Polycystic ovaries Adrenal mass Unspecified disorder of adrenal glands Familial combined hyperlipidemia Mixed hyperlipidemia Hypothyroidism Unspecified hypothyroidism documented in this encounter Administered Medications Inactive Administered Medications - up to 3 most recent administrations Medication Order MAR Action Action Date Dose Rate Site gadoversetamide (OPTIMARK) 10 mmol/20 mL injection 18 mL 18 mL, IV, INTRA-PROCEDURE ONCE, 1 dose, Starting on Sat05/25/11 at 0825, Until Sat05/25/11 at 0825, Routine Given 05/25/2011 8:25 AM TRANSITION ADVISOR 18 mL documented in this encounter
--- OUTSIDE RECORDS SUMMARY | 2024-05-03 20:47 | XMS_ITS | Encounter Summary ---
Author Organization [facility] Address [address] [place] [address] Care Team Providers Care University Archivist Name Role Phone Unavailable Primary Care Provider Unavailabl e Reason for Visit * Reason Onset Date Comments Question 04/23/2012 Encounter Details Date Type Department Care Team (Late st Contact Info) Description 04/23/[address] [facility] Endocrinology [address] [place] [address] Prudence Gates MD [email or web address] [place] [address] Question Social History Tobacco Use Types Packs/Day [...] encounter Miscellaneous Notes * Telephone Encounter - Ena Madera - 04/23/2012 12:57 PM CST Pt informed of note below. STANT STORE LEADER * Telephone Encounter - Prudence Gates MD - 04/23/2012 11:48 AM ASSISTANT STORE LEADER Needs to see the mine car mechanic is that is the case STANT STORE LEADER * Telephone Encounter - Ena Madera - 04/23/2012 8:36 AM CST Pt states eyes have been sore, and the corner of her eye is red. Pt states eye is not oozing, but looks swollen. This is the second time this has happened in a month. Pt wants to know if she should make an appointment for the dr to look at it. Please advise. STANT STORE LEADER documented in this encounter Plan of Treatment Upcoming Encounters Date Type Department Care Team (Late st Contact Info) Description 09/14/2024 3:00 PM CDT Office Visit [facility] Heart and Vascular - [place] [address] [place] [address] Marlys Mayer MD [address] [place] [address] documented as of this encounter Visit Diagnoses Not on filedocumented in this encounter
--- OUTSIDE RECORDS SUMMARY | 2024-05-03 20:47 | XMS_ITS | Encounter Summary ---
Author Organization [facility] Address [address] [place] [address] Care Team Providers Care Classified Ad Taker Name Role Phone Unavailable Primary Care Provider Unavailabl e Reason for Visit * Reason Onset Date Comments Results 06/05/2011 Encounter Details Date Type Department Care Team (Late st Contact Info) Description 06/05/2011 Telephone [facility] Endocrinology [address] [place] [address] Sagrario Gates MD [address] [place] [address] Results Social History Tobacco Use Types Packs/Day [...] * Telephone Encounter - David Richardson - 06/05/2011 10:52 AM CST Informed pt per note below , She is taking her synthroid per protocol , rx sent to pharm for dose increase , [facility] order placed PLOYMENT SPECIALIST * Telephone Encounter - David Richardson - 06/05/2011 10:52 AM CST Message copied by DAVID RICHARDSON on SatJun 05, 2011 10:52 AM ------ Message from: SAGRARIO GATES Created: SatJun 04, 2011 12:31 PM TSH in the upper limit of normal, she is young, so increase synthroid from 100 to 112 mcg a day only if she has taken it correctly TSH in 6 weeks Thank you PLOYMENT SPECIALIST documented in this encounter Plan of Treatment Upcoming Encounters Date Type Department Care Team (Late st Contact Info) Description 09/14/2024 3:00 PM CDT Office Visit [facility] Heart and Vascular - [place] [address] [address] [place] [phone] Marlys Mayer MD [address] [place] [address] Scheduled Orders Name Type Priority Associated Diagnoses Orde r Schedule TSH Lab Routine Unspecified hypothyroidism Ordered: 06/05/2011 documented as of this encounter Procedures Procedure Name Priority Date/Time Associated Diagnosis Comments LIPID PANEL Routine 06/19/2011 9:41 AM UNEMPLOYMENT SPECIALIST documented in this encounter Results * (ABNORMAL) LIPID PANEL (06/19/2011 9:41 AM UNEMPLOYMENT SPECIALIST) CHOLESTEROL 224(H) 125 - 200 mg/dL [facility] Comment: Test Performed at: [address] ??[phone] DELMA MAURER DO HDL 25(L) > OR = 46 mg/dL [facility] TRIGLYCERIDE 543(H) <150 mg/dL [facility] LDL CALCULATED <130 mg/dL (calc) [facility] Comment: LDL cholesterol not calculated. Triglyceride levels greater than 400 mg/dL invalidate calculated LDL results. Desirable range <100 mg/dL for patients with CHD or diabetes and <70 mg/dL for diabetic patients with known heart disease. CHOL/HDL RATIO 9.0(H) < OR = 5.0 (calc) [facility] Comment: REPORT COMMENT: SPLIT 06/01/2011 FROM [id number] FASTING 06/19/2011 9:41 AM UNEMPLOYMENT SPECIALIST 06/19/2011 1:28 PM UNEMPLOYMENT SPECIALIST Sagrario Gates MD CHEMISTRY ORDERAB LES INTERFACE SYSTEM Refer to clinic/hospital department [facility] [address] [address] documented in this encounter Visit Diagnoses Diagnosis Unspecified hypothyroidism- Primary documented in this encounter
--- OUTSIDE RECORDS SUMMARY | 2024-05-03 20:47 | XMS_ITS | Encounter Summary ---
Author Organization [facility] Address [address] [place] [address] Care Team Providers Care Cloth Tester Quality Name Role Phone Unavailable Primary Care Provider Unavailabl e Encounter Details Date Type Department Care Team (Late Contact Info) Description 09/17/2011 Orders Only [facility] Endocrinology [address] [place] [phone] Prudence Gates MD [address] [place] [address] Social History Tobacco Use Types Packs/Day Years [...] and Vascular - [place] [address] [place] [address] Marlys Mayer MD [address] [place] [address] documented as of this encounter Visit Diagnoses Not on filedocumented in this encounter
--- OUTSIDE RECORDS SUMMARY | 2024-05-03 20:47 | XMS_ITS | Encounter Summary ---
Author Organization [facility] Address [address] [place] [address] Care Team Providers Care Studio Technician Video Operator Name Role Phone Unavailable Primary Care Provider Unavailabl e Reason for Referral * Outpatient Services (Routine) - Closed Specialty Diagnoses / Procedures Referred By Tequila bowman Referred To Contact MRI Diagnoses Metabolic syndrome History of gestational diabetes PCOS (polycystic ovarian syndrome) Adrenal mass Familial combined hyperlipidemia Hypothyroidism Procedures MRI ABDOMEN W WO CONTRAST Prduence Gates MD [address] [place] [address] Referral ID Status Reason Start Date Expiration Date Visits Re quested Visits Authorized [id number] Closed 05/15/2011 05/14/2012 1 1 ING EDUCATION CONSULTANT Reason for Visit * Reason Comments Establish Care N/P Metabolic Syndro me Encounter Details Date Type Department Care Team (Late st Contact Info) Description 05/15/2011 10:45 AM NURSING EDUCATION CONSULTANT Office Visit [facility] Endocrinology [address] [place] [address] Prudence Gates MD [address] [place] [address] Metabolic syndrome; History of gestational diabetes; PCOS (polycystic ovarian syndrome); Adrenal mass; Familial combined hyperlipidemia; Hypothyroidism; Hyperandrogenemia Social History Tobacco Use Types Packs/Day Years [...] Sign Reading Time Taken Comments Blood Pressure 116/80 05/15/2011 10:58 AM NURSING EDUCATION CONSULTANT Pulse 74 05/15/2011 10:58 AM NURSING EDUCATION CONSULTANT Temperature - - Respiratory Rate - - Oxygen Saturation - - Inhaled Oxygen Concentration - - Weight 88.9 kg (196 lb) 05/15/2011 10:58 AM NURSING EDUCATION CONSULTANT Height 162.6 cm (5' 4 ) 05/15/2011 10:58 AM NURSING EDUCATION CONSULTANT Body Mass Index 33.64 05/15/2011 10:58 AM NURSING EDUCATION CONSULTANT documented in this encounter Progress Notes * Shira Olivo, CLAU - 05/15/2011 12:17 PM CST Discussed diet rational. Goal consistent carb intake low fat and healthy food choices. Discussed cho counting and label reading. Simple meal plan given Pt aware Will need to increased carbs once labs improve To call with question / problems. ING EDUCATION CONSULTANT * Prudence Gates MD - 05/15/2011 11:15 AM CST HISTORY OF PRESENT ILLNESS Casandra Faulkner, a 35 y.o. female. HPI The patient referred for consultation by Ms. Araceli Wesley [phone] (DANDY OPERATOR) for the evaluation and management of PCOS, metabolic syndrome, prediabetes and severe hyperlipidemia. Mrs. Faulkner went to see her VASC TECH a few weeks ago. Ms Wesley did [...] Outpatient Prescriptions Medication Sig Dispense Refill ??? ketorolac tromethamine (TORADOL) 10 mg Oral tablet Take 10 mg by mouth every 4 hours as needed. ??? ibuprofen (MOTRIN) 800 mg Oral tablet Take 800 mg by mouth every 6 hours as needed. ??? ERGOCALCIFEROL, VITAMIN D2, (VITAMIN D ORAL) Take by mouth. No Known Allergies Past Medical History Diagnosis [...] ??? Alcohol Use: No PHYSICAL EXAM BP 116/80 Pulse 74 Ht 5' 4 (1.626 m) Wt 196 lb (88.905 kg) BMI 33.64 kg/m2 Physical Exam Constitutional: She appears well-developed. [...] see media ASSESSMENT: Encounter Diagnoses Name Primary? Metabolic syndrome ??? History of gestational diabetes ??? PCOS (polycystic ovarian syndrome) ??? Adrenal mass ??? Familial combined hyperlipidemia ??? Hypothyroidism ??? Hyperandrogenemia PLAN: We had an extensive discussion in regards to the physiopathology of PCOS. We discussed the pituitary gonadal axis as well and the role of insulin resistance in this scenario. Hyperinsulinemia stimulates hormonal production by the ovaries. I also discussed the fact that terminal computer operator health problems such as the development of cardiovascular disease and diabetes, both of which, have been linked to PCOS, (although studies are limited). Some studies suggest that PCOS is linked to metabolic syndrome syndrome. 30-40% of women with PCOS have impaired glucose tolerance, more so in patients that are obese. Diet and exercise have a beneficial effect on cardiovascular risk factors, weight loss and progression to diabetes. In regards to medications: Metformin is the most widely studied and will aid with insulin resistance and ovulation induction when the time comes. Combination OCP have been shown to promote a significant reduction in endometrial cancer. This is no longer a concern since she has no uterus, and estrogen should be avoided unless given as a patch due to her very high TG She received a meal plan (very low fat) this along with metformin and increased exercise and 7% weight loss, will help with her TG. Hypothyroidism also cause increased lipids, this needs to be treated as well. I will reassess the issue in 6 weeks and if still elevated will prescribed fish oil or fibrates. We discussed the physiopathology of thyroid disease. We discussed its treatment and follow up. We talked about the pituitary-thyroid axis, so the patient could understand the test results better. The patient is aware of the TSH [...] name medication since its absorption is more reliable. She was told in the past that she had an adrenal mass. This was years ago, so if existent it is benign. I need to perform an MRI to see the size and if she really has one. Her DHEAS is high. If the adrenal mass is confirmed other hormones need to be checked. Orders Placed This Encounter ??? MRI ABDOMEN W WO CONTRAST ??? TSH ??? Lipid Panel ??? metFORMIN (GLUCOPHAGE) 500 mg Oral tablet ??? SYNTHROID 100 mcg Oral tablet Thank you very much for allowing us to participate in this patient care. If you have any questions or concerns, please do not hesitate to contact us, I will keep you updated in this patient's progress and test results Have a great day, Sincerely yours Prudence Gates ING EDUCATION CONSULTANT * Nahed France - 05/15/2011 11:00 AM CST Pt here for N/P Metabolic syndrome. Recent labs Pt has with her. Please return to Pt. Pt C/O tiredness, Lack of desire to do anything. ING EDUCATION CONSULTANT documented in this encounter Plan of Treatment Upcoming Encounters Date Type Department Care Team (Late st Contact Info) Description 09/14/2024 3:00 PM CDT Office Visit [facility] Heart and Vascular - [place] [address] [place] [address] Marlys Mayer MD [address] [place], [place] [phone] documented as of this encounter Results * MRI ABDOMEN W WO CONTRAST (05/25/2011 8:29 AM NURSING EDUCATION CONSULTANT) Anatomical Region Laterality Modality Abdomen Magnetic Resonan ce 05/25/2011 7:50 AM NURSING EDUCATION CONSULTANT Impressions 05/25/2011 4:47 PM NURSING EDUCATION CONSULTANT IMPRESSION: 1. Normal adrenals. No evidence of [...] is recommended. ?? Narrative 05/25/2011 4:47 PM NURSING EDUCATION CONSULTANT MRI ABDOMEN WITH AND WITHOUT IV CONTRAST, [...] combined hyperlipidemia Mixed hyperlipidemia Hypothyroidism Unspecified hypothyroidism Hyperandrogenemia Other ovarian hyperfunction Metabolic syndrome Dysmetabolic Syndrome X History of gestational diabetes Personal history of gestational diabetes PCOS (polycystic ovarian syndrome) Polycystic ovaries Adrenal mass Unspecified disorder of adrenal glands Familial combined hyperlipidemia Mixed hyperlipidemia Hypothyroidism Unspecified hypothyroidism documented in this encounter
--- OUTSIDE RECORDS SUMMARY | 2024-05-03 20:47 | XMS_ITS | Encounter Summary ---
Author Organization [facility] Address [address] [place] [address] Care Team Providers Care Supplier Quality Specialist Name Role Phone Unavailable Primary Care Provider Unavailabl e Reason for Visit * Reason Onset Date Comments Results 12/20/2011 Encounter Details Date Type Department Care Team (Late st Contact Info) Description 12/20/2011 Telephone [facility] Endocrinology [address] [place] [address] Sagrario Jang MD [address] [place], [place] [phone] Results Social History Tobacco Use Types Packs/Day [...] * Telephone Encounter - David Richardson - 12/21/2011 4:15 PM CDT Rx sent to pharm , [facility] order placed * Telephone Encounter - Teressa Lane - 12/21/2011 11:45 AM CDT Pt called back, informed per 's note. Needs TSH lab order [facility] to [facility] [address] Also needs order for synthroid 137 mcg sent to [place] [facility], * Telephone Encounter - David Richardson - 12/20/2011 4:39 PM CDT Left mssg pt home # to return call * Telephone Encounter - David Richardson - 12/20/2011 4:39 PM CDT Message copied by DAVID RICHARDSON on SatDec 20, 2011 4:39 PM ------ Message from: SAGRARIO JANG Created: SatDec 19, 2011 5:34 PM Worse cholesterol, to be very careful with her diet. Increase exercise. If the patient has been taking her synthroid daily, fasting and 1/2 hr away from other meds and food, Increase synthroid BY 25 mcg/d (from 112 to 137 mcg) And then order for a TSH in 8 weeks Thank you documented in this encounter Plan of Treatment Upcoming Encounters Date Type Department Care Team (Late st Contact Info) Description 09/14/2024 3:00 PM CDT Office Visit [facility] Heart and Vascular - [facility] [address] [place] [address] Marlys Mayer MD [address] [place] [address] Scheduled Orders Name Type Priority Associated Diagnoses Orde r Schedule TSH Lab Routine Unspecified hypothyroidism Ordered: 12/21/2011 documented as of this encounter Visit Diagnoses Diagnosis Unspecified hypothyroidism- Primary documented in this encounter
--- OUTSIDE RECORDS SUMMARY | 2024-05-03 20:47 | XMS_ITS | Encounter Summary ---
Author Organization [facility] Address [address] [place] [address] Care Team Providers Care Grievance And Appeals Specialist Name Role Phone Unavailable Primary Care Provider Unavailabl e Reason for Visit * Reason Onset Date Comments Medication Refill 01/08/2012 Encounter Details Date Type Department Care Team (Late Contact Info) Description 01/08/2012 Refill [facility] Endocrinology [address] [place] [address] Prudence Gates MD [address] [place], [place] [phone] Unspecified hypothyroidism (Primary Dx) Social History Tobacco Use Types [...] encounter Miscellaneous Notes * Telephone Encounter - Alissa Young - 01/08/2012 4:02 PM CDTAddended by: ALISSA YOUNG on: 01/08/2012 04:02 PM Modules accepted: Orders documented in this encounter Plan of Treatment Upcoming Encounters Date Type Department Care Team (Late Contact Info) Description 09/14/2024 3:00 PM CDT Office Visit [facility] Heart and Vascular - [address] [facility] [address] [place] [address] Marlys Mayer MD [address] [place] [address] documented as of this encounter Visit Diagnoses Diagnosis Unspecified hypothyroidism- Primary documented in this encounter
--- OUTSIDE RECORDS SUMMARY | 2024-05-03 20:47 | XMS_ITS | Encounter Summary ---
Author Organization [facility] Address [address] [place] [address] Care Team Providers Care Regional Owner Operator Truck Driver Name Role Phone Unavailable Primary Care Provider Unavailabl e Encounter Details Date Type Department Care Team (Late Contact Info) Description 05/17/2011 Abstract [facility] Endocrinology [address] [place] [address] Prudence Gates MD [address] [place], [place] [phone] Social History Tobacco Use Types Packs/Day Years [...] Upcoming Encounters Date Type Department Care Team ([facility] Contact Info) Description 09/14/2024 3:00 PM CDT Office Visit [facility] Heart and Vascular - [facility] [address] [place] [address] Marlys Mayer MD [address] [place], [place] [phone] documented as of this encounter Procedures Procedure Name Priority Date/Time Associated Diagnosis Comments MISCELLANEOUS LAB TEST Routine 05/15/2011 documented in this encounter Results * MISCELLANEOUS LAB TEST (05/15/2011) MISCELLANEOUS LAB TEST EXTERNAL LAB Specimen of unknown material (specimen) Abstract Provider CHEMISTRY ORDERABLES Performing Organization Address City/State/[facility] Co de Phone Number EXTERNAL LAB documented in this encounter Visit Diagnoses Not on filedocumented in this encounter
--- OUTSIDE RECORDS SUMMARY | 2024-05-03 20:47 | XMS_ITS | Encounter Summary ---
Author Organization [facility] Address [address] [place] [address] Care Team Providers Care Plastering Supervisor Name Role Phone Unavailable Primary Care Provider Unavailabl e Reason for Visit * Reason Onset Date Comments Medication Refill 06/26/2011 Encounter Details Date Type Department Care Team (Late Contact Info) Description 06/26/2011 Refill [facility] Endocrinology [address] [place] [address] Prudence Gates MD [address] [place] [address] Social History Tobacco Use Types Packs/Day Years [...] [facility] Heart and Vascular - [place] [address] [place] [address] Marlys Mayer MD [address] [place] [address] documented as of this encounter Visit Diagnoses Not on filedocumented in this encounter
--- OUTSIDE RECORDS SUMMARY | 2024-05-03 20:47 | XMS_ITS | Encounter Summary ---
Author Organization [facility] Address [address] [place] [address] Care Team Providers Care Director Commercial Sales Name Role Phone Unavailable Primary Care Provider Unavailabl e Encounter Details Date Type Department Care Team ([facility] Contact Info) Description 12/17/2011 Orders Only [facility] Endocrinology [address] [place] [address] Prudence Gates MD [address] [place], [place] [phone] PCOS (polycystic ovarian syndrome); Metabolic syndrome Social History Tobacco Use Types Packs/Day Years [...] Upcoming Encounters Date Type Department Care Team ([facility] Contact Info) Description 09/14/2024 3:00 PM CDT Office Visit [facility] Heart and Vascular - [place] [address] [place] [address] Marlys Mayer MD [address] [place] [address] documented as of this encounter Procedures Procedure Name Priority Date/Time Associated Diagnosis Comments TSH Routine 12/18/2011 8:17 AM CDT PCOS (polycystic ovarian syndrome) Metabolic syndrome CREATININE Routine 12/18/2011 8:17 AM CDT PCOS (polycystic ovarian syndrome) Metabolic syndrome HEPATIC FUNCTION PANEL Routine 12/18/2011 8:17 AM CDT PCOS (polycystic ovarian syndrome) Metabolic syndrome LIPID PANEL Routine 12/18/2011 8:17 AM CDT PCOS (polycystic ovarian syndrome) Metabolic syndrome documented in this encounter Results * (ABNORMAL) TSH (12/18/2011 8:17 AM CDT) TSH 10.92(H) mIU/L [facility] Comment: ?Reference Range ?> or = 20 Years ??0.40-4.50 ? Ranges ?First trimester ?0.26-2.66 ?Second trimester ?? 0.55-2.73 ?Third trimester ?0.43-2.91 Test Performed at: [facility] [address] ??[phone] DELMA MAURER DO,MPH Blood specimen (specimen) 12/18/2011 8:17 AM CDT Prudence Gates MD CHEMISTRY ORDERAB LES INTERFACE SYSTEM Refer to clinic/hospital department [facility] [address] [place] [address] * (ABNORMAL) HEPATIC FUNCTION PANEL (12/18/2011 8:17 AM CDT) Pathologist [facility] TOTAL PROTEIN 6.4 6.2 - 8.3 g/dL [facility] ALBUMIN 4.5 3.6 - 5.1 g/dL [facility] GLOBULIN 1.9(L) 2.2 - 3.9 g/dL (calc) [facility] ALBUMIN/GLOBULIN RATIO 2.4(H) 1.0 - 2.1 (calc) [facility] BILIR[facility] TOTAL 0.4 0.2 - 1.2 mg/dL [facility] BILIRUB[facility] DIRECT 0.0 < OR = 0.2 mg/dL [facility] BILIRUB[facility] INDIRECT 0.4 0.2 - 1.2 mg/dL (calc) [facility] ALKALINE PHOSPHATASE 53 33 - 115 U/L [facility] AST 16 10 - 30 U/L [facility] ALT 13 6 - 40 U/L [facility] Comment: Test Performed at: [facility] [address] [place], [place] ??[address] DELMA MAURER DO,MPH Blood specimen (specimen) 12/18/2011 8:17 AM CDT Prudence Gates MD CHEMISTRY ORDERAB LES Performing Organization Address [facility] Phone Number INTERFACE SYSTEM Refer to clinic/hospital department [facility] [address] [place] [address] * CREATININE (12/18/2011 8:17 AM CDT) CREATININE 0.64 0.50 - 1.10 mg/dL [facility] GFR 115 > OR = 60 mL/min/1.7 3m2 [facility] GFR, 133 > OR = 60 mL/min/1.7 3m2 [facility] Comment: Test Performed at: [facility] ??[phone] DELMA MAURER DO,MPH Blood specimen (specimen) 12/18/2011 8:17 AM CDT Prudence Gates MD CHEMISTRY ORDERAB LES Performing Organization Address [facility] de Phone Number INTERFACE SYSTEM Refer to clinic/hospital department [facility] [address] [place] [address] * (ABNORMAL) LIPID PANEL (12/18/2011 8:17 AM CDT) CHOLESTEROL 231(H) 125 - 200 mg/dL [facility] Comment: Test Performed at: [facility] [address] ??[phone] DELMA MAURER DO,MPH HDL 36(L) > OR = 46 mg/dL [facility] Comment: The above test was performed; however, the specimen was lipemic. TRIGLYCERIDE 458(H) <150 mg/dL [facility] LDL CALCULATED <130 mg/dL (calc) [facility] Comment: LDL cholesterol not calculated. Triglyceride levels greater than 400 mg/dL invalidate calculated LDL results. Desirable range <100 mg/dL for patients with CHD or diabetes and <70 mg/dL for diabetic patients with known heart disease. CHOL/HDL RATIO 6.4(H) < OR = 5.0 (calc) [facility] RESULT 195 mg/dL (calc) [facility] Comment: Component Name: ??NON-HDL CHOLESTEROL Target for non-HDL cholesterol is 30 mg/dL higher than LDL cholesterol target. Blood specimen (specimen) 12/18/2011 8:17 AM CDT Prudence Gates MD CHEMISTRY ORDERAB LES INTERFACE SYSTEM Refer to clinic/hospital department [facility] [address] [place] [address] documented in this encounter Visit Diagnoses Diagnosis PCOS (polycystic ovarian syndrome) Polycystic ovaries Metabolic syndrome Dysmetabolic Syndrome X documented in this encounter
--- OUTSIDE RECORDS SUMMARY | 2024-05-03 20:47 | XMS_ITS | Encounter Summary ---
Author Organization [facility] Address [address] [place] [address] Care Team Providers Care Student Education Specialist Name Role Phone Unavailable Primary Care Provider Unavailabl e Reason for Visit * Reason Onset Date Comments Medication Question 05/30/2011 Encounter Details Date Type Department Care Team (Late st Contact Info) Description 05/30/2011 Telephone [facility] Endocrinology [address] [place] [address] Shira Olivo, library specialist Question Social History Tobacco Use Types Packs/Day [...] encounter Miscellaneous Notes * Telephone Encounter - Shira Olivo RN - 05/30/2011 6:14 PM CST Pt informed,has tsh lab order will get it done -knows not to do the lipids yet B CONSULTANT * Telephone Encounter - Prudence Gates MD - 05/30/2011 3:40 PM REHAB CONSULTANT Hold metformin Order for a TSH please Those symptoms are not usual for these meds but everything is possible. Thank you B CONSULTANT * Telephone Encounter - Shira Olivo RN - 05/30/2011 1:10 PM CST Pt called started on metformin, synthroid ,vit D She c/o light headedness dizzy shakey which starts 1 hr after eats( meal size doesnt matter) Also has CORTES AND nose bleeds She is not having any gi sx B CONSULTANT documented in this encounter Plan of Treatment Upcoming Encounters Date Type Department Care Team (Late st Contact Info) Description 09/14/2024 3:00 PM CDT Office Visit [facility] [id number] [place] [address] Marlys Mayer MD [address] [place] [address] documented as of this encounter Visit Diagnoses Not on filedocumented in this encounter
--- OUTSIDE RECORDS SUMMARY | 2024-05-03 20:47 | XMS_ITS | Encounter Summary ---
Author Organization [facility] Address [address] [place] [address] Care Team Providers Care Mechanical Planner Name Role Phone Guerrero Middleton PA-C Primary Care Provide r Reason for Visit * Auth/Cert Specialty Diagnoses / Procedures Referred By Contact Referred To Contact Critical Care Medicine Diagnoses severe triglyceridemia [facility] [address] [place] [address] Referral ID Status Reason Start Date Expiration Date Visits Re quested Visits Authorized [id number] 1 1 Encounter Details Date Type Department Care Team (Latest Contact Info) Description 02/10/2018 10:23 PM CDT - 02/18/2018 5:15 PM CDT Hospital Encounter [facility] Oncology [address] [place] [address] Angie Louis MD [address] [address] Araceli Santo MD [address] [place] [address] Vlad Covarrubias MD [address] [place] [address] Odette Che MD [address] [address] Chylomicronemia syndrome Discharge Disposition: Home or Self Care Social History Tobacco Use Types Packs/Day Years Used Date Smoking Tobacco: Every Day Cigarettes Smokeless Tobacco: Never Alcohol Use Standard Drinks/Week Comments No 0 (1 standard drink = 0.6 oz pur e alcohol) Sex and Gender Information Value Date Recorded Sex Assigned at Not on file Gender Identity Not on file Sexual Orientation Not on file documented as of this encounter Last Filed Vital Signs Vital Sign Reading Time Taken Comments Blood Pressure 100/58 02/18/2018 3:50 AM CDT Pulse 77 02/18/2018 3:50 AM CDT Temperature 36.9 ??C (98.4 ??F) 02/18/2018 3:50 AM CD T Respiratory Rate 16 02/18/2018 3:50 AM CDT Oxygen Saturation 94% 02/18/2018 3:50 AM CDT Inhaled Oxygen Concentration - - Weight 91.9 kg (202 lb 11.2 oz) 018 10:27 PM CDT Height 162.6 cm (5' 4 ) 02/10/2018 10:2 7 PM CDT Body Mass Index 34.79 02/10/2018 10:27 PM CDT documented in this encounter Discharge Summaries * Odette Che MD - 02/18/2018 3:34 PM CDT [facility] Adult Hospitalist Discharge Summary Patient Name: Casandra Jones / 42 y.o. / female : 1975 Primary Care Physician: Guerrero Middleton PA-C Date of Admission: 02/10/2018 Date of Discharge : 02/18/2018 Admitting Diagnoses: Abdominal pain Discharge Diagnoses: Abdominal pain-unclear. No pancreatitis Hypertriglyceridemia-improved Diabetes type 2 GERD Hypothyroidism Anxiety/panic disorder MEDICATIONS Discharge medications and new prescriptions: Medication List CONTINUE taking these medications kngqibz-hykiog-mvdxblta 60-12-38 capsule Commonly known as: CREON 12 Take by mouth 3 times daily after meals. Refills: 0 citalopram 40 mg tablet Commonly known as: CeleXA Take 40 mg by mouth daily at bedtime. Refills: 0 fenofibrate nanocrystallized 145 mg tablet Commonly known as: TRICOR Take 145 mg by mouth daily. Refills: 0 hydrocortisone 1 % Ointment Apply to affected area 2 times daily. Signed by: Odette Che MD Quantity: 28 Gram Refills: 0 insulin glargine 100 unit/mL injection Commonly known as: LANTUS Inject 10 Units by subcutaneous injection 2 times daily. Signed by: Odette Che MD Quantity: 15 mL Refills: 0 levothyroxine 200 mcg tablet Commonly known as: SYNTHROID Take 1 Tablet by mouth daily ball worker. Signed by: Odette Che MD Quantity: 30 Tablet Refills: 3 LORazepam 1 mg tablet Commonly known as: ATIVAN Take 1 mg by mouth 2 times daily as needed for Anxiety . Refills: 0 magnesium oxide 400 mg (241.3 mg magnesium) tablet Commonly known as: MAG-OX Take 400 mg by mouth daily. Refills: 0 metFORMIN 500 mg tablet Commonly known as: GLUCOPHAGE Take 500 mg by mouth 2 times daily with meals. Refills: 0 niacin 500 mg tablet Commonly known as: NIACOR Take 500 mg by mouth 2 times daily. Refills: 0 Irqvs1-YxdH5-I48-E-FA-Fish Oil [phone] qr-wy-nyv-mcg Capsule Take 2 Caplets by mouth 2 times daily. Signed by: Odette Che MD Quantity: 120 Capsule Refills: 3 pantoprazole 40 mg Tablet, Delayed Release (E.C.) Commonly known as: PROTONIX Take 40 mg by mouth daily. Refills: 0 rosuvastatin 20 mg tablet Commonly known as: CRESTOR Take 20 mg by mouth daily at bedtime. Refills: 0 SENNA LAX 8.6 mg tablet Take 1 Tablet by mouth 2 times daily. Signed by: Odette Che MD Quantity: 30 Tablet Refills: 0 Generic drug: sennosides spironolactone 25 mg tablet Commonly known as: ALDACTONE Take 25 mg by mouth daily. Refills: 0 traZODone 50 mg tablet Commonly known as: DESYREL Take 50 mg by mouth daily at bedtime. Refills: 0 Consults: Endocrinology Significant Diagnostic Studies: Labs and studies that are pending or need follow-up: Lipid clinic in February Discharge Exam: Patient Vitals for the past 24 hrs: BP Temp Temp src Pulse Resp SpO2 02/18/18 0350 100/58 98.4 ??F (36.9 ??C) Oral 77 16 94 % 02/17/18 2004 119/81 98.5 ??F (36.9 ??C) Oral 76 16 96 % Chest: CTA bilaterally CV: RRR, nl S1. S2 Abd: positive BS, soft, NT, ND Ext: no cyanosis or edema Hospital Course: Patient is a 42-year-old female with past medical history of hypertriglyceridemia, diabetes type 2 on insulin, hypothyroidism, depression presents to the emergency room with complaints of abdominal pain due to recurrent pancreatitis from hypertriglyceridemia. Her previous admissions are due to pancreatitis secondary to hypertriglyceridemia and at one point required plasmapheresis. She was followed by endocrinology she is on maximum medications for lipid control including fenofibrate, niacin, Crestor, and fish oil. She has an appointment with lipid clinic in February. Patient admitted for further management. Endocrinology consult obtained. Normal lipase and prior CT scans normal as well. So low suspicion for pancreatitis. Suspect abdominal pain due to chylomicronemia. On admission triglycerides were over 2600. Insulin GTT has been initiated on admission. She was kept n.p.o. Triglyceridestrended down. Continued YARD ATTENDANT medication fish oil, niacin, fenofibrate and statin. Repeat triglycerides today is 707. She is initiated on low-carb and low-fat diet yesterday. Discharge home today. Follow-up with lipid clinic. Discharge Condition: stable. Disposition: Home Code Status: Full Patient instructions: Activity: As tolerated Diet: Low-carb/low-fat diet Follow-up: Guerrero Middleton PA-C More than 30 minutes were spent in this discharge activity. Signed: Odette Che MD 02/18/2018, 3:40 PM documented in this encounter Medications at Time of Discharge Medication Sig Dispensed Refills Start Date End Date levothyroxine 200 mcg tablet Take 1 Tablet by mouth daily ball worker. 30 Tablet 3 12/11/2017 04/10/2018 Kqyfp5-GizJ7-M64-E-FA-F bossman Oil [id number] su-pp-bfa-mcg Capsule Take 2 Caplets by mouth 2 [...] daily as needed for Anxiety . 06/18/[address]-pgtmtn-xyzdbfat DR (CRERUDI 12) 26-12-92 capsule Take by mouth 3 times daily after meals. 04/10/2018 fenofibrate nanocrystallized (TRICOR) 145 mg tablet Take 145 mg by mouth daily. 04/10/2018 citalopram (CeleXA) 40 mg tablet Take 40 mg by mouth daily at bedtime. 11/01/2020 levothyroxine (SYNTHROID) 137 mcg Oral tabletIndications:Unspe cified hypothyroidism Take 1 Tab by mouth daily ball worker. TAKE WITHOUT FOOD 30 Tab 0 03/20/2013 [...] with supper. 90 Tab 2 05/21/2012 04/10/2018 ergocalciferol (VITAMIN D2) 50,000 unit Oral capsule Take 1 Cap by mouth every 30 days. 3 Cap 4 05/21/2012 03/06/2018 ALPRAZolam (XANAX) 0.5 mg Oral tablet Take 1 Tab by mouth nightly as needed for Anxiety. 30 Tab 0 05/21/2012 03/06/2018 citalopram (CELEXA) 40 mg Oral tablet Take 40 mg by mouth daily. 04/10/2018 varenicline (CHANTIX) 0.5 mg Oral Tab Take 2 Tabs by mouth 2 times daily. 60 Tab 2 12/18/2011 03/06/2018 ketorolac tromethamine (TORADOL) 10 mg Oral tabletIndications:Metab olic syndrome,History of gestational diabetes,PCOS (polycystic ovarian syndrome),Adrenal mass,Familial combined hyperlipidemia,Hypothyr oidism Take 10 mg by mouth every 4 hours as needed. 03/06/2018 ibuprofen (MOTRIN) 800 mg Oral tabletIndications:Metab olic syndrome,History of gestational diabetes,PCOS (polycystic ovarian syndrome),Adrenal mass,Familial combined hyperlipidemia,Hypothyr oidism Take 200 mg by mouth every 8 hours as needed . 03/09/2018 documented as of this encounter Progress Notes * Christie Guerra GN - 02/18/2018 1:07 PM CDT Casandra Jones will be discharged via ambulatory to home. Casandra Jones is accompanied by spouse and will be transported via private vehicle. Patient discharge information was reviewed; verbalized understanding and she had no questions. All lines discontinued and showered before leaving. * Leeann Thorpe NP - 02/17/2018 10:39 PM CDT [facility] Called for: Change BG and SSI from q4 to ACHS Last Recorded Vitals: BP 119/81 (BP Location: Left arm, Patient Position (BP): Supine) Pulse 76 Temp 98.5 ??F (36.9 ??C) (Oral) Resp 16 Ht 5' 4 (1.626 m) Wt 91.9 kg (202 lb 11.2 oz) SpO2 96% BMI 34.79 kg/m?? Documentation/Intervention/Outcome: -Chart reviewed. Patient with history of DM type 2 admitted for recurent pancreatitis, pt had been on insulin gtt 2/2 hypertryglyceridemia, transitioned off gtt today due to hypoglycemia. Pt now tolerating diabetic diet. -POC BG and SSI changed to ACHS with 0200 BG due to hypoglycemia risk. Please call back any time if I can be of further assistance. Leeann Thorpe NP Try our new night ticket system for vHospitalist calls. Submit an eTicket * Vlad Covarrubias MD - 02/17/2018 1:53 PM CDT [facility] Adult Hospitalist Progress Note Admit Date: 02/10/2018 Date of Note: 02/17/2018, 1:53 PM LOS: 7 days Previous history of present illness and review of systems have been reviewed today as documented inthe H&P on 02/10/2018; medications, labs, studies, notes, orders and consults have been reviewed. I have reviewed the notes from admission. Subjective: TG continue to improve. Will start diet. No acute complains when I saw her. Objective: BP 127/74 (BP Location: Left arm, Patient Position (BP): Supine) Pulse 80 Temp 98.1 ??F (36.7 ??C) (Oral) Resp 16 Ht 5' 4 (1.626 m) Wt 91.9 kg (202 lb 11.2 oz) SpO2 98% BMI 34.79 kg/m?? Temp (24hrs), Av.1 ??F (36.7 ??C), Min:98.1 ??F (36.7 ??C), Max:98.1 ??F (36.7 ??C) Exam: General: drowsy, no distress. Heart: Regular rate and rhythm, S1, S2 normal, no murmur, click, rub or gallop. Lungs: Clear to auscultation bilaterally Abdomen: Soft, ? epigastric -tender. Bowel sounds times four. No masses, No [...] and pertinent ones are noted below TG down to 2100>1700> 1500>1300> 800+ OSH CT abd pelvis from OSH: no acute abnormalities, Lipase wnl Assessment/Plan of Actively Managed Problems Principal Problem: Pancreatitis, recurrent Active Problems: Hypertriglyceridemia Epigastric abdominal pain Depression with anxiety Type 2 diabetes mellitus without complication, with long-term current use of insulin Acquired hypothyroidism 1. 1. Abd pain, unclear if she has Pancreatitis - pt with abd pain, nausea; lipase 89 on admission with normal pancreas on CT -may be from high TG itself vs very early pancratitis? Pain meds as needed, taper narcs as able, hopefully pain improve with decreased TG. -taper iv dilaudid,not sure why she still has signiicant pain as her labs now much better without evidence of acute pancreatitis 2, Hypertriglyceridemia -improving- -previously required plasmapheresis, on admission was put on insulin gtt but with frequent hypoglycemia -d/w endo, off insulin gtt, keep her NPO and resume her HLD meds, already maximized -TG slowly coming down now < 1000 -strict low carb/low fat diet after dc, she voices understanding -will change her niacin to SR form, which is less likely associated with flush -she does take Niacin SR at home -start low carb low fat diet today and RD will provide protein power as supplement -explain to her that without evidence of acute pancreatitis, urgent plasmapheresis was not indicated 2. DM2 - pt uses lantus/lispro YARD ATTENDANT, s/p insulin gtt as above, now off gtt will need to transition to SSI due to concern of hypoglycemia. Add basal if BS up 3. GERD - IV pepcid 4. Hypothryoidism - synthroid IV (100 mcg, changed to PO YARD ATTENDANT dosage 5. Anxiety/panic disorder - no celexa given NPO, cont with IV ativan PRN. 6. Debility: none 7. DVT Prophylaxis: Enoxaparin DVT Prophylaxis - Enoxaparin Pettit catheter:absent Lines: Peripheral IV PT POC OT POC Activity Order: Present Activity: ambulated;up in room;in bed (02/17/18 1116) Current Code Status -Full Code Plan discussed with patient, questions answered. Current Planned Disposition - Tbd, Discharge when TG < 800 after diet started. possible am Stable/Resolved Issues/Follow Up Needs Vlad Covarrubias MD * Tracy Fields, RD - 02/17/2018 9:35 AM CDT Images from the original note were not included. CLINICAL DIETITIAN PROGRESS NOTE [facility] Nutrition Risk Screen A: Height: 5' 4 (162.6 cm) (02/10/182226) Weight: 91.9 kg (202 lb 11.2 oz) (02/10/182226) Body mass index is 34.79 kg/m??. IBW/kg (Calculated) Female: 54.7 kg (02/10/182226) IBW/kg (Calculated) Male: 59.2 kg (02/10/182226) Wt Readings from Last 3 Encounters: 02/10/18 91.9 kg (202 lb 11.2 oz) 12/04/17 91.2 kg (201 lb 1.6 oz) Last Bowel Movement (mm/dd/yyyy): 02/12/18 (02/16/182030) Chin Score: 19 (02/16/18 1300) Skin:intact Lab TGL 853, K (yesterday) 3.4 Pert Meds: lipitor, synthroid, zofran, colace PMH:hypertgl, pancreatitis, dm, DIET NPO Sips w/Meds, NPO x 8 DAYS D: Inadequate oral intake r/t inability to consume adequate nutrition as evidenced by NPO x 8 DAYS (since adm) I: Nutritional Needs: Calorie needs 1838 (25/kg) protein needs 119 (1.3/kg) fluid needs 2200ml Nutrition Intervention: Patient has been NPO since admission secondary to pancreatitis and hypertgl, (note on adm tgl 1567,today 853. Spoke with MD, plan is to be able to discharge home, if she can tolerate a diet. He will order diettoday, I will add high protein powders (minimal cho and fat ) to trays and encourage intake of these. We already discussed need for high protein at home, she says she will try. If patient unable to tolerate po, TF may need to be considered TF Vital High Protein 50ml/hr 1200 cals,. 109 gms protein, 134 gms CHO, 27 gms fat , 1008 ml water Continue to follow and encourage protein powders here and at home Food Allergies: green peppers M/E: 1 Add protein powders to trays 2. Continue to monitor nutrition, weight, lab values, and skin. 3. Follow up every 4 days and as needed. * Lilo Back NP - 02/16/2018 9:23 PM CDT [facility] Cross Cover Call Called for: nausea Last Recorded Vitals: BP 133/69 (BP Location: Left arm, Patient Position (BP): Supine) Pulse 74 Temp 98.9 ??F (37.2 ??C) (Oral) Resp 18 Ht 5' 4 (1.626 m) Wt 91.9 kg (202 lb 11.2 oz) PeV527% BMI 34.79 kg/m?? Documentation/Intervention/Outcome: - Chart reviewed. Patient admitted for ABD pain thought to be from hypertriglyceridemia vs early pancreatitis. Per the bedside RN the patient is c/o nausea unrelieved by Zofran. - Order placed for IV compazine PRN - Continue to monitor Please call back any time if I can be of further assistance. LILO BACK NP Try our new night ticket system for vHospitalist calls. Submit an eTicket * Juanita Ramirez RN - 02/16/2018 9:10 PM CDT Pt c/o persistent nausea, Zofran and Ativan given w no relief, [facility] * Vlad Covarrubias MD - 02/16/2018 4:05 PM CDT [facility] Adult Hospitalist Progress Note Admit Date: 02/10/2018 Date of Note: 02/16/2018, 4:05 PM LOS: 6 days Previous history of present illness and review of systems have been reviewed today as documented inthe H&P on 02/10/2018; medications, labs, studies, notes, orders and consults have been reviewed. I have reviewed the notes from admission. Subjective: TG continue to improve. Sleep in bed after iv dilaudid Objective: BP 133/69 (BP Location: Left arm, Patient Position (BP): Supine) Pulse 74 Temp 98.9 ??F (37.2 ??C) (Oral) Resp 18 Ht 5' 4 (1.626 m) Wt 91.9 kg (202 lb 11.2 oz) SpO2 96% BMI 34.79 kg/m?? Temp (24hrs), Av.7 ??F (37.1 ??C), Min:98.5 ??F (36.9 ??C), Max:98.9 ??F (37.2 ??C) Exam: General: drowsy, no distress. Heart: Regular rate and rhythm, S1, S2 normal, no murmur, click, rub or gallop. Lungs: Clear to auscultation bilaterally Abdomen: Soft, ? epigastric -tender. Bowel sounds times four. No masses, No [...] and pertinent ones are noted below TG down to 2100>1700> 1500>1300, OSH CT abd pelvis from OSH: no acute abnormalities, Lipase wnl Assessment/Plan of Actively Managed Problems Principal Problem: Pancreatitis, recurrent Active Problems: Hypertriglyceridemia Epigastric abdominal pain Depression with anxiety Type 2 diabetes mellitus without complication, with long-term current use of insulin Acquired hypothyroidism 1. 1. Abd pain, unclear if she has Pancreatitis - pt with abd pain, nausea; lipase 89 on admission with normal pancreas on CT -may be from high TG itself vs very early pancratitis? Pain meds as needed, taper narcs as able, hopefully pain improve with decreased TG. -taper iv dilaudid,not sure why she still has signiicant pain as her labs now much better without evidence of acute pancreatitis 2, Hypertriglyceridemia -improving- -previously required plasmapheresis, on admission was put on insulin gtt but with frequent hypoglycemia -d/w endo, off insulin gtt, keep her NPO and resume her HLD meds, already maximized -TG slowly coming down now < 1000 -strict low carb/low fat diet after dc, she voices understanding -will change her niacin to SR form, which is less likely associated with flush 2. DM2 - pt uses lantus/lispro YARD ATTENDANT, s/p insulin gtt as above, now off gtt will need to transition to SSI due to concern of hypoglycemia. Add basal if BS up 3. GERD - IV pepcid 4. Hypothryoidism - synthroid IV (100 mcg, changed to PO YARD ATTENDANT dosage 5. Anxiety/panic disorder - no celexa given NPO, cont with IV ativan PRN. 6. Debility: none 7. DVT Prophylaxis: Enoxaparin DVT Prophylaxis - Enoxaparin Pettit catheter:absent Lines: Peripheral IV PT POC OT POC Activity Order: Present Activity: in bed (02/16/18 1243) Current Code Status -Full Code Plan discussed with patient, questions answered. Current Planned Disposition - Tbd, Discharge when TG < 800,possible am Stable/Resolved Issues/Follow Up Needs Vlad Covarrubias MD * Vlad Covarrubias MD - 02/15/2018 12:10 PM CDT [facility] Adult Hospitalist Progress Note Admit Date: 02/10/2018 Date of Note: 02/15/2018, 12:10 PM LOS: 5 days Previous history of present illness and review of systems have been reviewed today as documented inthe H&P on 02/10/2018; medications, labs, studies, notes, orders and consults have been reviewed. I have reviewed the notes from admission. Subjective: TG is pending. Recurrent flush with niacin. She agrees with tapering pain meds Objective: BP (!) 94/49 (BP Location: Left arm, Patient Position (BP): Supine) Pulse 85 Temp 98.1 ??F (36.7 ??C) (Oral) Resp 18 Ht 5' 4 (1.626 m) Wt 91.9 kg (202 lb 11.2 oz) SpO2 95% BMI 34.79 kg/m?? Temp (24hrs), Av.3 ??F (36.8 ??C), Min:98.1 ??F (36.7 ??C), Max:98.5 ??F (36.9 ??C) Exam: General: drowsy, no distress. Heart: Regular rate and rhythm, S1, S2 normal, no murmur, click, rub or gallop. Lungs: Clear to auscultation bilaterally Abdomen: Soft, ? epigastric -tender. Bowel sounds times four. No masses, No [...] and pertinent ones are noted below TG down to 2100>1700> 1500>1300, OSH CT abd pelvis from OSH: no acute abnormalities, Lipase 89 Assessment/Plan of Actively Managed Problems Principal Problem: Pancreatitis, recurrent Active Problems: Hypertriglyceridemia Epigastric abdominal pain Depression with anxiety Type 2 diabetes mellitus without complication, with long-term current use of insulin Acquired hypothyroidism 1. 1. Abd pain, unclear if she has Pancreatitis - pt with abd pain, nausea; lipase 89 on admission with normal pancreas on CT -may be from high TG itself vs very early pancratitis? Pain meds as needed, taper narcs as able, hopefully pain improve with decreased TG. 2, Hypertriglyceridemia -improving- -previously required plasmapheresis, on admission was put on insulin gtt but with frequent hypoglycemia -d/w endo, off insulin gtt, keep her NPO and resume her HLD meds, already maximized -TG slowly coming down -strict low carb/low fat diet after dc, she voices understanding -will change her niacin to SR form, which is less likely associated with flush 2. DM2 - pt uses lantus/lispro YARD ATTENDANT, s/p insulin gtt as above, now off gtt will need to transition to SSI due to concern of hypoglycemia. Add basal if BS up 3. GERD - IV pepcid 4. Hypothryoidism - synthroid IV (100 mcg, changed to PO YARD ATTENDANT dosage 5. Anxiety/panic disorder - no celexa given NPO, cont with IV ativan PRN. 6. Debility: none 7. DVT Prophylaxis: Enoxaparin DVT Prophylaxis - Enoxaparin Pettit catheter:absent Lines: Peripheral IV PT POC OT POC Activity Order: Present Activity: in bed (02/15/18 1020) Current Code Status -Full Code Plan discussed with patient, questions answered. Current Planned Disposition - Tbd, Discharge when TG < 800 Stable/Resolved Issues/Follow Up Needs Vlad Covarrubias MD * Luisa Davey PA - 02/15/2018 12:19 AM CDT [facility] Called for: pruritis Last Recorded Vitals: BP 103/58 (BP Location: Left arm, Patient Position (BP): Supine) Pulse 86 Temp 98.2 ??F (36.8 ??C) (Oral) Resp 16 Ht 5' 4 (1.626 m) Wt 91.9 kg (202 lb 11.2 oz) FbT900% BMI 34.79 kg/m?? Documentation/Intervention/Outcome: Chart reviewed. 42 y/o female with acute pancreatitis 2/2 hypertriglyceridemia. Per RN, has occasional pruritis at home, take benadryl 50 mg PO and typically resolves. This evening had mild skin erythema,congestion and pruritis, was given benadryl 50 mg around 2100. RN states skin irritation and congestion resolved, but patient continues to c/o itching . Labs reviewed, renal function normal with crea <1. -give atarax 25 mg PO x 1 dose now. -will continue to monitor Please call back any time if I can be of further assistance. JOHNATHAN FRANKS Try our new night ticket system for vHospitalist calls. Submit an eTicket * Vlad Covarrubias MD - 02/14/2018 12:21 PM CDT [facility] Adult Hospitalist Progress Note Admit Date: 02/10/2018 Date of Note: 02/14/2018, 12:21 PM LOS: 4 days Previous history of present illness and review of systems have been reviewed today as documented inthe H&P on 02/10/2018; medications, labs, studies, notes, orders and consults have been reviewed. I have reviewed the notes from admission. Subjective: TG continues to improve. She agrees with tapering pain meds Objective: BP 113/60 (BP Location: Right arm, Patient Position (BP): Supine) Pulse 81 Temp 98.4 ??F (36.9 ??C) (Oral) Resp 16 Ht 5' 4 (1.626 m) Wt 91.9 kg (202 lb 11.2 oz) SpO2 98% BMI 34.79 kg/m?? Temp (24hrs), Av.5 ??F (36.9 ??C), Min:98.2 ??F (36.8 ??C), Max:98.7 ??F (37.1 ??C) Exam: General: drowsy, no distress. Heart: Regular rate and rhythm, S1, S2 normal, no murmur, click, rub or gallop. Lungs: Clear to auscultation bilaterally Abdomen: Soft, ? epigastric -tender. Bowel sounds times four. No masses, No [...] and pertinent ones are noted below TG down to 2100>1700> 1500>1300, OSH CT abd pelvis from OSH: no acute abnormalities, Lipase 89 Assessment/Plan of Actively Managed Problems Principal Problem: Pancreatitis, recurrent Active Problems: Hypertriglyceridemia Epigastric abdominal pain Depression with anxiety Type 2 diabetes mellitus without complication, with long-term current use of insulin Acquired hypothyroidism 1. 1. Abd pain, unclear if she has Pancreatitis - pt with abd pain, nausea; lipase 89 on admission with normal pancreas on CT -may be from high TG itself vs very early pancratitis? Pain meds as needed, taper narcs as able, hopefully pain improve with decreased TG. 2, Hypertriglyceridemia -improving- -previously required plasmapheresis, on admission was put on insulin gtt but with frequent hypoglycemia -d/w endo, off insulin gtt, keep her NPO and resume her HLD meds, already maximized -TG slowly coming down -strict low carb/low fat diet after dc, she voices understanding 2. DM2 - pt uses lantus/lispro YARD ATTENDANT, s/p insulin gtt as above, now off gtt will need to transition to SSI due to concern of hypoglycemia. Add basal if BS up 3. GERD - IV pepcid 4. Hypothryoidism - synthroid IV (100 mcg, changed to PO YARD ATTENDANT dosage 5. Anxiety/panic disorder - no celexa given NPO, cont with IV ativan PRN. 6. Debility: none 7. DVT Prophylaxis: Enoxaparin DVT Prophylaxis - Enoxaparin Pettit catheter:absent Lines: Peripheral IV PT POC OT POC Activity Order: Present Activity: in bed (02/14/18 1018) Current Code Status -Full Code Plan discussed with patient, questions answered. Current Planned Disposition - Tbd, Discharge when TG < 800 Stable/Resolved Issues/Follow Up Needs Vlad Covarrubias MD * Danisha Bell RN - 02/14/2018 6:17 AM CDT Undress and Assess performed by: Jovon Raman RN INDUSTRIAL MAINTENANCE TECHNICIAN Admission or upon transfer to: oncology ~~~~~~~~~~~~~~~~~~~~~~~~~~~~ Patient does not have skin breakdown. Wound care consult was not initiated. Apply Protective Dressings to Sacrum and Heels (Mepilex) as per Pathway Patient arrived to this room with the following belongings/valuables:(ie:dentures, hearing aids, glasses): Patient arrived to this room with the following medical equipment/devices (ie: insulin pump, home CPAP, walker): All Jewelry removed from patient N/A Disposition of belongings/valuables: * Vlad Covarrubias MD - 02/13/2018 2:54 PM CDT [facility] Adult Hospitalist Progress Note Admit Date: 02/10/2018 Date of Note: 02/13/2018, 2:54 PM LOS: 3 days Previous history of present illness and review of systems have been reviewed today as documented inthe H&P on 02/10/2018; medications, labs, studies, notes, orders and consults have been reviewed. I have reviewed the notes from admission. Subjective: She is comfortable in bed. Objective: BP 104/62 (BP Location: Right arm, Patient Position (BP): Lying right side) Pulse 70 Temp 98.1 ??F (36.7 ??C) (Oral) Resp 9 Ht 5' 4 (1.626 m) Wt 91.9 kg (202 lb 11.2 oz) SpO2 97% BMI 34.79 kg/m?? Temp (24hrs), Av ??F (36.7 ??C), Min:97.5 ??F (36.4 ??C), Max:98.5 ??F (36.9 ??C) Exam: General: drowsy, no distress. Heart: Regular rate and rhythm, S1, S2 normal, no murmur, click, rub or gallop. Lungs: Clear to auscultation bilaterally Abdomen: Soft, ? epigastric -tender. Bowel sounds times four. No masses, No [...] and pertinent ones are noted below TG down to 2100>1700> 1500, OSH CT abd pelvis from OSH: no acute abnormalities, Lipase 89 Assessment/Plan of Actively Managed Problems Principal Problem: Pancreatitis, recurrent Active Problems: Hypertriglyceridemia Epigastric abdominal pain Depression with anxiety Type 2 diabetes mellitus without complication, with long-term current use of insulin Acquired hypothyroidism 1. 1. Abd pain, unclear if she has Pancreatitis - pt with abd pain, nausea; lipase 89 on admission with normal pancreas on CT -may be from high TG itself vs very early pancratitis? Pain meds as needed, taper narcs as able, hopefully pain improve with decreased TG. 2, Hypertriglyceridemia -improving- -previously required plasmapheresis, on admission was put on insulin gtt but with frequent hypoglycemia -d/w endo, off insulin gtt, keep her NPO and resume her HLD meds, already maximized -TG slowly coming down 2. DM2 - pt uses lantus/lispro YARD ATTENDANT, s/p insulin gtt as above, now off gtt will need to transition to SSI due to concern of hypoglycemia. Add basal if BS up 3. GERD - IV pepcid 4. Hypothryoidism - synthroid IV (100 mcg, changed to PO YARD ATTENDANT dosage 5. Anxiety/panic disorder - no celexa given NPO, cont with IV ativan PRN. 6. Debility: none 7. DVT Prophylaxis: Enoxaparin DVT Prophylaxis - Enoxaparin Pettit catheter:absent Lines: Peripheral IV PT POC OT POC Activity Order: Present Activity: in bed (02/13/18 8084) Current Code Status -Full Code Plan discussed with patient, questions answered. Current Planned Disposition - Tbd, can move to medicine. Discharge when TG < 800 Stable/Resolved Issues/Follow Up Needs Vlad Covarrubias MD * Demetra Garcia GN - 02/13/2018 4:54 AM CDT Patient complains of frequent pain in L abdominal region and frequent headaches. IV dilaudid and oral [place] given per JUN. Complained of some intermittent nausea during shift, reports relief with Zofran. Patient was able to rest throughout night. Will continue to monitor. * Vlad Covarrubias MD - 02/12/2018 5:05 PM CDT [facility] Adult Hospitalist Progress Note Admit Date: 02/10/2018 Date of Note: 02/12/2018, 5:05 PM LOS: 2 days Previous history of present illness and review of systems have been reviewed today as documented inthe H&P on 02/10/2018; medications, labs, studies, notes, orders and consults have been reviewed. I have reviewed the notes from admission. Subjective: TG slowly came down. Still has epigastric LLQ pain Objective: BP 110/78 (BP Location: Right arm, Patient Position (BP): Supine) Pulse 74 Temp 97.5 ??F (36.4??C) (Oral) Resp 11 Ht 5' 4 (1.626 m) Wt 91.9 kg (202 lb 11.2 oz) SpO2 98% BMI 34.79 kg/m?? Temp (24hrs), Av ??F (36.7 ??C), Min:97.5 ??F (36.4 ??C), Max:98.3 ??F (36.8 ??C) Exam: General: drowsy, no distress. Heart: Regular rate and rhythm, S1, S2 normal, no murmur, click, rub or gallop. Lungs: Clear to auscultation bilaterally Abdomen: Soft, ? epigastric -tender. Bowel sounds times four. No masses, No [...] and pertinent ones are noted below TG down to 2100>1700, OSH CT abd pelvis from OSH: no acute abnormalities, Lipase 89 Assessment/Plan of Actively Managed Problems Principal Problem: Pancreatitis, recurrent Active Problems: Hypertriglyceridemia Epigastric abdominal pain Depression with anxiety Type 2 diabetes mellitus without complication, with long-term current use of insulin Acquired hypothyroidism 1. 1. Abd pain, unclear if she has Pancreatitis - pt with abd pain, nausea; lipase 89, may be from high TG? Pain meds as needed, taper narcs as able, hopefully improve with decreased TG. Hypertriglyceridemia -improving-down [id number] today, freq hypoglycemia while on insulin gtt, -d/w endo, off insulin gtt, keep her NPO and resume her HLD meds, already maximized 2. DM2 - pt uses lantus/lispro YARD ATTENDANT, s/p insulin gtt as above, now off gtt will need to transition to SSI due to concern of hypoglycemia. Add basal if BS up 3. GERD - IV pepcid 4. Hypothryoidism - synthroid IV (100 mcg, changed to PO YARD ATTENDANT dosage 5. Anxiety/panic disorder - no celexa given NPO, cont with IV ativan PRN. 6. Debility: none 7. DVT Prophylaxis: Enoxaparin DVT Prophylaxis - Enoxaparin Pettit catheter:absent Lines: Peripheral IV PT POC OT POC Activity Order: Present Activity: in bed (02/12/18 1550) Current Code Status -Full Code Plan discussed with patient, questions answered. Current Planned Disposition - tbd Stable/Resolved Issues/Follow Up Needs Vlad Covarrubias MD * Geneva Jasso RN - 02/12/2018 6:38 AM CDT VSS. Pt complains of pain 6-9 out of 10 located in both the head and left upper abd region. Tylenol, IV dilaudid, and norco given per MAR with some improvement. Despite freq complaints of pain pt rested well. Tolerated dinner, increased oral intake. Last triglyceride level 1,744 * Hedy Guevara NP - 02/11/2018 10:59 PM CDT [facility] Virtual ospitalist Cross Cover Call Called for: request for tylenol for headache. Last Recorded Vitals: BP 99/62 (BP Location: Right arm, Patient Position (BP): Supine) Pulse 92 Temp 98.2 ??F (36.8 ??C) (Oral) Resp 18 Ht 5' 4 (1.626 m) Wt 91.9 kg (202 lb 11.2 oz) [id number]% BMI 34.79 kg/m?? Documentation/Intervention/Outcome: Chart reviewed. Order provided. Please call back any time if I can be of further assistance. Hedy Guevara NP Try our new night ticket system for vHospitalist calls. Submit an eTicket * Ericka Leone NP - 02/11/2018 8:22 PM CDT [facility] Called for: itching and flushed face Last Recorded Vitals: BP 99/62 (BP Location: Right arm, Patient Position (BP): Supine) Pulse 92 Temp 98.2 ??F (36.8 ??C) (Oral) Resp 18 Ht 5' 4 (1.626 m) Wt 91.9 kg (202 lb 11.2 oz) [id number]% BMI 34.79 kg/m?? Documentation/Intervention/Outcome: Chart reviewed. Pt reporting itching and reported feeling flushed.No rash or redness noted per nurse. Benadryl PRN ordered. Please call back any time if I can be of further assistance. Ericka Leone NP Try our new night ticket system for vHospitalist calls. Submit an eTicket * Vlad Covrarubias MD - 02/11/2018 5:03 PM CDT [facility] Adult Hospitalist Progress Note Admit Date: 02/10/2018 Date of Note: 02/11/2018, 5:03 PM LOS: 1 day Previous history of present illness and review of systems have been reviewed today as documented inthe H&P on 02/10/2018; medications, labs, studies, notes, orders and consults have been reviewed. I have reviewed the notes from admission. Subjective: Minimal abd pain, look drowsy to me Objective: BP 101/56 (BP Location: Right arm, Patient Position (BP): Supine) Pulse 76 Temp 97.6 ??F (36.4 ??C) (Oral) Resp 12 Ht 5' 4 (1.626 m) Wt 91.9 kg (202 lb 11.2 oz) SpO2 98% BMI 34.79 kg/m?? Temp (24hrs), Av.9 ??F (36.6 ??C), Min:97.6 ??F (36.4 ??C), Max:98.4 ??F (36.9 ??C) Exam: General: drowsy, no distress. Heart: Regular rate and rhythm, S1, S2 normal, no murmur, click, rub or gallop. Lungs: Clear to auscultation bilaterally Abdomen: Soft, ? epigastric -tender. Bowel sounds times four. No masses, No [...] and pertinent ones are noted below TG down to 2100, OSH CT abd pelvis from OSH: no acute abnormalities, Lipase 89 Assessment/Plan of Actively Managed Problems 1. Principal Problem: 2. Pancreatitis, recurrent 3. Active Problems: 4. Hypertriglyceridemia 5. Epigastric abdominal pain 6. Depression with anxiety 7. Type 2 diabetes mellitus without complication, with long-term current use of insulin 8. Acquired hypothyroidism 9. 10. 1. Abd pain, unclear if she has Pancreatitis - pt with abd pain, nausea; lipase 89, may be from high TG? Pain meds as needed, taper narcs as able, hopefully improve with decreased TG. 2. Hypertriglyceridemia - reportedly over 2600, repeat pending. Will initiate tx with insulin gtt, repeat lipid panel at 1200 on 02/11. Consult to endocrinology (has seen Ian during previous admission). -down to 2100 today, freq hypoglycemia while on insulin gtt, -d/w endo, will stop insulin gtt, keep her NPO and resume her HLD meds, already maximized 3. DM2 - pt uses lantus/lispro YARD ATTENDANT, s/p insulin gtt as above, now off gtt will need to transition to SSI due to concern of hypoglycemia. Add basal if BS up 4. GERD - IV pepcid 5. Hypothryoidism - synthroid IV (100 mcg, changed to PO YARD ATTENDANT dosage 6. Anxiety/panic disorder - no celexa given NPO, cont with IV ativan PRN. 7. Debility: none 8. DVT Prophylaxis: Enoxaparin DVT Prophylaxis - Enoxaparin Pettit catheter:absent Lines: Peripheral IV PT POC OT POC Activity Order: Present Activity: in bed (02/11/18 1600) Current Code Status -Full Code Plan discussed with patient, questions answered. Current Planned Disposition - tbd Stable/Resolved Issues/Follow Up Needs Vlad Covarrubias MD * Genoveva Delacruz RN - 02/11/2018 7:51 AM CDT HYPOGLYCEMIC EVENT INFORMATION (Use F2 button to move through the document) Event Time: 732 Event Description/cause factors: Insulin gtt @ 10 Initial Blood glucose result: 61 mg/dl Immediate re-check result: 70 mg/dl The following immediate glucose source was given:Other - Paused insulin gtt, and notified physician. Increased D5 from 75mL/hr to 125 mL/hr. 15 minute re-check result after hypoglycemic event: 51, 58 - pushed D50 15 minute re-check result after D50 was pushed - 113 MD notified to discuss strategies to prevent another event: Notified MD - awaiting orders Next steps taken: Pt insulin gtt still paused, D5 IVF going. Post Event Monitoring to start when blood glucose greater than 70 mg/dL 30 minute re-check result: 113 60 minute re-check result: 96 90 minute re-check result: 92 - restarted insulin gtt @ 5 per Endocrinology. Genoveva Delacruz RN * Maria Victoria Arevalo RN - 02/10/2018 10:50 PM CDT Undress and Assess performed by: Deborah Bauer and SADAF cannon Admission or upon transfer to: [place] [id number] ~~~~~~~~~~~~~~~~~~~~~~~~~~~~ Is the patient a paraplegic/quadriplegic? Does [...] with the following belongings/valuables:(ie:dentures, hearing aids, glasses): sungalsses, socks, tooth brush, shelly bear, shirt, pants, hairs brush, shoes, wallet, cell phone, crocodile farmer, earrings, ring, cigarettes, residential interior designer, Patient arrived to this room with the following medical equipment/devices (ie: insulin pump, home CPAP, walker): none All Jewelry removed from patient Patient refused Disposition of belongings/valuables: items in bag in patient closet, ring on pt left ring finger, earrings on pt. documented in this encounter H&P Notes * Araceli Santo MD - 02/10/2018 11:14 PM CDT [facility] Adult Hospitalist Admission H&P Date of Admission: 02/10/2018 Date of Service: 02/11/2018 Patient Name: Casandra Jones Courtesy Copy PCP: Shailesh, External Provider Chief Complaint: acute pancreatitis 2/2 hypertriglyceridemia HPI: Patient is a 42 y.o. female with a past medical history of hypertriglyceridemia, DM2 on insulin, hypothyroidism, depression who presents with recurrent pancreatitis and elevated TG. Pt has been feeling unwell since 02/05 with nausea, epigastric pain. She presented to her PCP for evaluation and had blood work at that time. Pt received call from PCP on 02/10 with the report that TG resulted >2600 and she was asked to presented to the ED for evaluation and treatment. Pt has PMH of admission for pancreatitis 2/2 TG, and at that time required plasmapheresis and was followed by endocrinology. As outpatient she has been taking fenofibrate, niacin, crestor, and fish oil for HLD. She was scheduled to be evaluated [facility] with Dr. Mayer at in February. Pt denies any change in lifestyle, no new medications, and no trauma or recent illness. At OSH, pt with stable VS, CBC, CMP, and UA unremarkable except for 3+ glucose. Upon arrival to [facility] pt complaining of pain and nausea. Past Medical History: Past Medical History: Diagnosis Date ??? Depression ??? DM type 2 (diabetes mellitus, type 2) ??? GERD (gastroesophageal reflux disease) ??? HLD (hyperlipidemia) ??? Hypothyroidism Past Surgical History: No past surgical history on file. Family History: Family History Problem Relation Age of Onset ??? Diabetes Father ??? Diabetes Mother Social History: Social History Substance Use Topics ??? Smoking status: Current Every Day Smoker Packs/day: 0.50 Types: Cigarettes ??? Smokeless tobacco: Never Used ??? Alcohol use No Outpatient Medications: I have personally reconciled the outpatient medications. Prior to Admission Medications Prescriptions Last Dose Informant Patient Reported? Taking? LORazepam (ATIVAN) 1 mg tablet 02/10/2018 at Unknown time Yes Yes Sig: Take 1 mg by mouth 2 times daily as needed for Anxiety . Srexp0-[id number]-FA-Fish Oil [phone] [id number]-lx-[id number]-mcg Capsule 02/10/2018 at Unknown time No Yes Sig: Take 2 Caplets by mouth 2 times daily. ihwvken-ctoebx-evswxmkr DR (CREON 12) 87-12-49 capsule Yes No Sig: Take by mouth 3 times daily after meals. citalopram (CeleXA) 40 mg tablet 02/09/2018 at Unknown time Yes Yes Sig: Take 40 mg by mouth daily at bedtime. fenofibrate nanocrystallized (TRICOR) 145 mg tablet 02/10/2018 at Unknown time Yes Yes Sig: Take 145 mg by mouth daily. hydrocortisone 1 % Ointment Unknown at Unknown time No No Sig: Apply to affected area 2 times daily. insulin glargine (LANTUS) 100 unit/mL injection 02/10/2018 at Unknown time No Yes Sig: Inject 10 Units by subcutaneous injection 2 times daily. levothyroxine 200 mcg tablet 02/10/2018 at Unknown time No Yes Sig: Take 1 Tablet by mouth daily ball worker. magnesium oxide (MAG-OX) 400 mg tablet Yes No Sig: Take 400 mg by mouth daily. metFORMIN (GLUCOPHAGE) 500 mg tablet 02/10/2018 at Unknown time Yes Yes Sig: Take 500 mg by mouth 2 times daily with meals. niacin (NIACOR) 500 mg tablet 02/10/2018 at Unknown time Yes Yes Sig: Take 500 mg by mouth 2 times daily. pantoprazole (PROTONIX) 40 mg Tablet, Delayed Release (E.C.) 02/09/2018 at Unknown time Yes Yes Sig: Take 40 mg by mouth daily. rosuvastatin (CRESTOR) 20 mg tablet 02/10/2018 at Unknown time Yes Yes Sig: Take 20 mg by mouth daily at bedtime. sennosides (SENOKOT) 8.6 mg tablet Unknown at Unknown time No No Sig: Take 1 Tablet by mouth 2 times daily. spironolactone (ALDACTONE) 25 mg tablet 02/10/2018 at Unknown time Yes Yes Sig: Take 25 mg by mouth daily. traZODone (DESYREL) 50 mg tablet 02/09/2018 at Unknown time Yes Yes Sig: Take 50 mg by mouth daily at bedtime. Facility-Administered Medications: None Allergies: Allergies Allergen Reactions ??? Green Pepper Hives ??? Adhesive Tape-Silicones Hives Review of Systems: Constitutional: No fever or chills Eyes: No visual changes Ears, nose, mouth, throat: No change in hearing, no sore throat, no rhinitis Cardiovascular: No chest pain or orthopnea Respiratory: No cough or SOB Gastrointestinal: nausea, loose stool on 02/10; epigastric pain Genitourinary: No hematuria, urgency or frequency Musculoskeletal: [...] Temp src Pulse Resp SpO2 Height Weight 02/10/18 2227 98/60 98.4 ??F (36.9 ??C) Oral 73 14 98 % 5' 4 (1.626 m) 91.9 kg (202 lb 11.2 oz) Constitutional: Alert, cooperative, well-developed, no apparent distress. [...] wall is normal. Gastrointestinal: Abdomen is soft, non-distended, diffusely tender, especially in epigastric region. No rebound tenderness. Lymphatics: There is no palpable cervical, axillary, or inguinal lymphadenopathy. Musculoskeletal: Normal musculature, no wasting. Skin: Inspection of skin reveals no lesions or rashes. Neurologic: CNII-XII intact without deficits. Deep tendon reflexes are normal. Strength is normal throughout. Sensation is normal throughout. Nonfocal neurological exam. Psychiatric: Normal judgement and insight. Oriented to time, place, person, and situation. Recent and remote memory is intact. Mood and affect are appropriate. Data Base: I have reviewed available data from visits prior to today. From OSH: WBC 7.4 Hg 12.6 Na 133 Cr 0.[address] abd pelvis from OSH: no acute abnormalities Problem List: Principal Problem: Pancreatitis, recurrent Active Problems: Hypertriglyceridemia Epigastric abdominal pain Depression with anxiety Type 2 diabetes mellitus without complication, with long-term current use of insulin Acquired hypothyroidism Assessment and Plan: 1. Pancreatitis - pt with abd pain, nausea; despite lipase 89 will presume pancreatitis. Pt NPO, cont with IVF and IV pain and nausea medication, as well as measures to decrease TG. 2. Hypertriglyceridemia - reportedly over 2600, repeat pending. Will initiate tx with insulin gtt, repeat lipid panel at 1200 on 02/11. Consult to endocrinology (has seen Ian during previous admission). 3. DM2 - pt uses lantus/lispro YARD ATTENDANT, will tx with insulin gtt as above, when off gtt will need to transition to basal/bolus insulin. 4. GERD - IV pepcid 5. Hypothryoidism - synthroid IV (100 mcg, will need 200 mcg when changed to PO). 6. Anxiety/panic disorder - no celexa given NPO, cont with IV ativan PRN. 7. Debility: none 8. DVT Prophylaxis: Enoxaparin Diet: DIET NPO Strict Code Status: Full Code Disposition: Ms. Jones normally lives at home. I anticipate discharge [...] questions. Araceli Santo MD Adult Hospitalist Physician 02/11/2018, 12:07 AM Pager: [phone] documented in this encounter Consult Notes * Blake Rudd MD - 02/11/2018 10:17 PM CDTAssociated Order(s): IP CONSULT TO ENDOCRINOLOGY Images from the original note were not included. [facility] INPATIENT DIABETES CONSULT NOTE Name: Casandra Jones : 1975 Date: 02/11/2018 Room/Bed: 4228/1 Hospital Day: LOS: 1 day Reason for consult: hyperTG HPI: This patient is a 42-year-old female with history of hypothyroidism, depression, hypertriglyceridemia, and type 2 diabetes. She reports that she started feeling poorly on 02/05. Developed nauseainitially Developed abd pain today. Presented to PCP. TGs >2600. Lipase was normal. Prior CT scan of abdomen during prior admiisions have been normal as well. Patient reports that she has been compliant with all meds. She was diagnosed with hypertriglyceridemia about 10-15 years ago. At home, she is on fenofibrate 145 mg daily, 1 g of fish oil, and niacin 500 mg twice daily. ?? She reports that she has had several hospitalizations for possible pancreatitis. She reports that her lipase and CT scan are always normal. She has had multiple rounds of a pheresis. This successfully lowers her triglycerides but they rise again over time. I saw her in October here at [facility]. We managed her conservatively with continuation of home lipid meds and NPO status. It took about 5 days for TG s to drop to less than 1000. ?? She reports no alcohol use. She tries to limit her simple carbohydrates. She eats 2-3 servings of fruit daily this is usually in the form of grapefruit or grapes. She reports that she also tries to adhere to a low-fat diet. Dinner is typically serving of pasta, salad, and lean meat. ?? Regarding her history of type 2 diabetes her most recent A1c is 8.3. She was started on insulin about 1 year ago. She takes 28 units of morning and 38 units in the evening. She takes NovoLog 12/08/13 with meals. She reports that blood sugars tend to run between 150 and 250 she denies hypoglycemia. She also takes metformin. She did not require basal insulin during last admission REVIEW OF SYSTEMS: Review of Systems - General ROS: negative for weight changes, fever Psychological ROS: negative for anxiety or depressive symptoms Hematological and Lymphatic ROS: negative for swollen glands or abnormal bleeding Endocrine ROS: negative for polyuria/polydipsia or new changes in weight Respiratory ROS: negative for cough, shortness of breath, or wheezing Cardiovascular ROS: negative for chest pain or dyspnea on exertion Gastrointestinal ROS: positive for - abdominal pain Musculoskeletal ROS: negative for back pain, neck pain or joint pain or swelling Neurological ROS: negative for TIA or stroke symptoms MEDICATIONS: Current Facility-Administered Medications Medication Dose Route Frequency Provider Last Rate Last Dose ??? LORazepam (ATIVAN) 2 mg/mL injection 0.5 mg 0.5 mg IV q 6 hour PRN Araceli Santo MD 0.5 mg at 02/11/18 0119 ??? [COMPLETED] potassium chloride 40 mEq in sodium chloride 0.9% 250 mL IVPB 40 mEq IV ONCE Araceli Santo MD Stopped at 02/11/18 1137 ??? [COMPLETED] diphenhydrAMINE (BENADRYL) injection 25 mg 25 mg IV ONCE Araceli Santo MD 25mg at 02/11/18 0700 ??? niacin (NIACOR) tablet 500 mg 500 mg Oral BID Vlad Covarrubias MD 500 mg at 02/11/18 2050 ??? levothyroxine (SYNTHROID) tablet 200 mcg 200 mcg Oral Daily EARLY Vlad Covarrubias MD 200 mcg at 02/11/18 1637 ??? HYDROmorphone (DILAUDID) 2 mg/mL injection 0.3 mg 0.3 mg IV q 4 hour PRN Vlad Covarrubias MD 0.3 mgat 02/11/18 2055 ??? HYDROcodone-acetaminophen (NORCO) 5-325 mg per tablet 1 Tablet 1 Tablet Oral q 4 hour PRN Vlad Covarrubias MD 1 Tablet at 02/11/18 1934 ??? sodium chloride 0.9% infusion IV Continuous Vlad Covarrubias MD 100 mL/hr at 02/11/18 1406 ??? dextrose 5% - sodium chloride 0.9% infusion 40 mL/hr IV See Admin Notes Vlad Covarrubias MD ??? dextrose 50% (D50) syringe 12.5 Gram 12.5 Gram IV See Admin Notes Vlad Covarrubias MD ??? dextrose 50% (D50) syringe 25 Gram 25 Gram IV See Admin Notes Vlad Covarrubias MD ??? glucagon HCl 1 mg injection 1 mg 1 mg IM See Admin Notes Vlad Covarrubias MD ??? insulin lispro (HumaLOG) variable dose injection subCUT q 4 hour Vlad Covarrubias MD ??? atorvastatin (LIPITOR) tablet 80 mg 80 mg Oral Daily BEDTIME Vlad Covarrubias MD 80 mg at 02/11/182049 ??? fenofibrate (LOFIBRA) tablet 160 mg 160 mg Oral Daily Vlad Covarrubias MD 160 mg at 02/11/18 163 ??? Fish Oil-[place]-3 Fatty Acids 360-1,200 mg capsule 2 Capsule 2 Capsule Oral BID Vlad Covarrubias MD 2 Capsule at 02/11/182048 ??? diphenhydrAMINE (BENADRYL) tablet 25 mg 25 mg Oral q 6 hour PRN Ericka Leone, ANNA 25 mg at 02/11/182048 ??? [DISCONTINUED] dextrose 5% infusion IV Continuous Vlad Covarrubias MD Stopped at 02/11/18 1157 ??? [DISCONTINUED] rosuvastatin (CRESTOR) tablet 20 mg 20 mg Oral Daily BEDTIME Vlad Covarrubias MD ??? [DISCONTINUED] Cedtb5-[id number]-E-FA-Fish Oil [phone] wg-fm-gac-mcg Capsule 2 Caplet 2 Caplet Oral BID Vlad Covarrubias MD ??? [DISCONTINUED] fenofibrate nanocrystallized (TRICOR) tablet 145 mg 145 mg Oral Daily Vlad Covarrubias MD ??? [DISCONTINUED] Fish Oil-[place]-3 Fatty Acids 360-1,200 mg capsule 2 Capsule 2 Capsule Oral BID Vlad Covarrubias MD ??? ondansetron (ZOFRAN) 4 mg/2 mL injection 4 mg 4 mg IV q 6 hour PRN Araceli Santo MD 4 mgat 02/11/18 1637 ??? naloxone (NARCAN) 0.4 mg/mL injection 0.1 mg 0.1 mg IV See Admin Notes Araceli Santo MD ??? enoxaparin (LOVENOX) injection 40 mg 40 mg subCUT q 24 hour Araclei Santo MD 40 mg at 02/11/18 1405 ??? [DISCONTINUED] HYDROmorphone (DILAUDID) 2 mg/mL injection 0.3 mg 0.3 mg IV q 2 hour PRN Araceli Santo MD 0.3 mg at 02/11/18 0903 ??? [DISCONTINUED] levothyroxine (SYNTHROID) 100 mcg in sodium chloride PF 0.9 % 5 mL injectable syringe 100 mcg IV PC DAILY LUNCH Araceli Santo MD ??? [DISCONTINUED] dextrose 5% - sodium chloride 0.9% infusion 40 mL/hr IV See Admin Notes Araceli Santo MD Stopped at 02/11/18 0324 ??? [DISCONTINUED] dextrose 50% (D50) syringe 12.5 Gram 12.5 Gram IV See Admin Notes Angelina Santo MD 12.5 Gram at 02/11/18 1120 ??? [DISCONTINUED] dextrose 50% (D50) syringe 25 Gram 25 Gram IV See Admin Notes Araceli Santo MD ??? [DISCONTINUED] glucagon HCl 1 mg injection 1 mg 1 mg IM See Admin Notes Araceli Santo MD ??? [DISCONTINUED] insulin regular (HUMULIN R,NOVOLIN R) 100 Units in sodium chloride 0.9% 100 mL infusion 5 Units/hr IV Continuous Vlad Covarrubias MD Stopped at 02/11/18 1156 ALLERGIES: Allergies Allergen Reactions ??? Green Pepper Hives ??? Adhesive Tape-Silicones Hives PAST MEDICAL HISTORY: Past Medical History: Diagnosis Date ??? Depression ??? DM type 2 (diabetes mellitus, type 2) ??? GERD (gastroesophageal reflux disease) ??? HLD (hyperlipidemia) ??? Hypothyroidism No past surgical history on file. FAMILY HISTORY: Family History Problem Relation Age of Onset ??? Diabetes Father ??? Diabetes Mother SOCIAL HISTORY Social History Social History ??? Marital status: Spouse name: N/A ??? Number of children: N/A ??? Years of education: N/A Social History Main Topics ??? Smoking status: Current Every Day Smoker Packs/day: 0.50 Types: Cigarettes ??? Smokeless tobacco: Never Used ??? Alcohol use No ??? Drug use: No ??? Sexual activity: Not on file Other Topics Concern ??? Not on file Social History Narrative ??? No narrative on file PHYSICAL EXAM: BP 99/62 (BP Location: Right arm, Patient Position (BP): Supine) Pulse 92 Temp 98.2 ??F (36.8 ??C) (Oral) Resp 18 Ht 5' 4 (1.626 m) Wt 91.9 kg (202 lb 11.2 oz) SpO2 100% BMI 34.79 kg/m?? GEN: well-nourished, NAD HEENT: normocephalic, autramatic; sclera anicteric NECK: thyroid normal in size and texture CV: RRR, no m/r/g; no LE edema RESP: CTAB ABD: mild epigastric TTP NEURO: A&O SKIN: warm and dry LYMPH: no cervical LAD LABS: Recent Labs 02/11/18 0507 02/11/18 0508 WBC -- 6.5 HGB -- 11.7* HCT -- 35.7 PLT -- 207 NA 138 -- K 3.1* -- CL 98 -- CO2 26 -- BUN 8 -- CREAT 0.56 -- GLUCOSE 84 -- Previous Hemoglobin A1C Results: HEMOGLOBIN A1C Date Value Ref Range Status 12/04/2017 8.3 (H) 4.0 - 6.0 % Final POC Glucose Range: Lab Results Component Value Date/Time GLUCPOC 119 (H) 02/11/2018 07:27 PM GLUCPOC 119 (H) 02/11/2018 04:26 PM GLUCPOC 105 (H) 02/11/2018 02:00 PM GLUCPOC 94 02/11/2018 12:07 PM GLUCPOC 100 (H) 02/11/2018 11:45 AM GLUCPOC 59 (L) 02/11/2018 11:15 AM GLUCPOC 92 02/11/2018 09:39 AM GLUCPOC 96 02/11/2018 08:54 AM GLUCPOC 113 (H) 02/11/2018 08:11 AM GLUCPOC 58 (L) 02/11/2018 07:52 AM ASSESSMENT AND PLAN: 42yoF with hyperTG, presenting with abd pain #) Abd pain: nl lipase, prior CTs normal as well. Seen by GI previously with low suspicion for pancreatitis. Posslibly some component of chylomicronemia. Pain management per hospitalist. #) HyperTG: there is at least a partial deficit of LPL activity. Needs strict low carb/low fat diet. Continue fish oil, niacin, lovaza, and statin for now. Hold on insulin gtt and apheresis. Plan to monitor TGs daily. OK to d/c when <1000. Maintain NPO for now. #) DM: Awaiting a1c, has not required basal insulin during prior admission. Continue ssi #) hypothyroidism: dose increase last admission. Will check TSH Recommendations were discussed with Dr. Covarrubias. Please call with questions. Thank you for this consult. Blake Rudd MD PhD documented in this encounter Miscellaneous Notes * Treatment Plan - Tracy Fields RD - 02/17/2018 12:36 PM CDT Order Writing Protocol for Registered Dietitians(RD) and Speech Language Pathologists (columnist) [facility] Enter Orders ???per protocol?? in the EHR Policy: With the goal of providing the most efficient, effective and safe process for initiating or changing nutrition therapy as recommended by a Registered Dietitian (RD) or Speech Language Pathologist (INSTRUCTIONAL TECHNOLOGY SPECIALIST). This protocol gives the RD or INSTRUCTIONAL TECHNOLOGY SPECIALIST Order writing privileges within her/his scope of practice. Definitions: An RD is considered qualified to write orders that do not require a physician co-signature by: o Maintaining registration through the Commission on Dietetic Registration o Maintaining licensure through [place] Licensure. o Demonstrating Clinical Nutrition competency as verified by the Clinical Sr. Pricing Analyst initially and as part of the annual performance appraisal. A INSTRUCTIONAL TECHNOLOGY SPECIALIST is considered qualified by virtue of: o Maintaining licensure as a INSTRUCTIONAL TECHNOLOGY SPECIALIST in the state of [place] o Maintaining Certificate of Clinical Competency (CCC) as designated by the [place] [employer] o Demonstrating competency under the direction of the tool crib manager of INSTRUCTIONAL TECHNOLOGY SPECIALIST at [facility] ([facility]) Responsibilities: 1. The Physician: o Has final [...] oforder. 10/11/2009 Word [employer] Protocol 2. An INSTRUCTIONAL TECHNOLOGY SPECIALIST may modify diet texture or liquid consistency according to the following guidelines: o Only texture modifications (with aspiration precautions) will be made (no nutritional modifications) o The INSTRUCTIONAL TECHNOLOGY SPECIALIST will see the patient and make texture modifications only after being consulted by a physician or midlevel practitioner. o Diet will not be upgraded if GI contraindications are present unless given approval by the consulting physician or midlevel practitioner o Diet will not be changed if the patient is NPO unless given approval by physician or midlevel practitioner o columnist will follow any diet restrictions posted in [...] count as appropriate. Add any instructions here * Care Plan - Juanita Ramirez, RN - 02/17/2018 3:58 AM CDT Pt continues to c/o abd pain with nausea, order for compazine received to help alleviate sx since the Ativan and Zofran not effective. Pain medication administered as ordered. Pt c/o of severe anxiety, when available time to give Ativan this RN observed pt sleeping and snoring. Pt continues to be NPO with IVF infusing. Will continue to monitor. Gastrointestinal ??? Achieve optimal gastrointestinal function by discharge or maintain baseline function Variance Nutrition/Endocrine ??? Achieve optimal nutrition and fluid status to meet metabolic needs throughout hospitalization Variance Pain, Potential/Actual ??? Verbalizes/displays acceptable comfort level or baseline comfort level Variance * Care Plan - Mike Spaulding RN - 02/16/2018 6:12 PM CDT Pt remains NPO with sips with medications. Blood glucose remained <100 throughout the shift. Pt given small sips of apple juice with medications due to blood sugars trending low.No BM during shift. Pt voiding baseline is two times per day with large volumes.Triglycerides trending down. Lorazepamand Zofran given for nausea. * Care Plan - Danisha Bell RN - 02/15/2018 7:43 AM CDT Pt c/o itching, skin became red/blotchy/flushed, PO benadryl given per JUN. Pt states this happens at home sometimes and she takes Benadryl which typically works. However, pt still c/o itching even after benadryl given, e-acute notified. 1x dose atarax ordered and given per JUN. Symptoms resolved. * Care Plan - Nathalie Espinal RN - 02/14/2018 4:13 PM CDT Still not feeling well. Pain better controlled by dilaudid. Zofran for nausea. NPO. IVF. Blood sugars 115 and 103. Restarted on her Celexa and Trazadone. * Care Plan - Danisha Bell RN - 02/14/2018 6:18 AM CDT Pt c/o L abd pain, alternated PO norco and IV dilaudid overnight, per JUN. Pt also c/o nausea, zofran given per JUN. Q4 blood sugars WDL, no insulin coverage required. Triglycerides 1,330 this a.m. * Care Plan - Zahraa Latham RN - 02/13/2018 3:36 PM CDT Discharge Planning ??? Identify discharge needs upon admission and through discharge Progressing Initial Discharge Planning Assessment completed. Introductory Care Management letter given. Patient admitted with acute pancreatitis due to severe hypertriglyceridemia. Care Management visited with patient, and discussed Care Management role and discharge planning. Prior to admission, patient's functional level was independent. Prior to admission, patient resided with her spouse and 15 year old son in a ranch style house withno steps to enter, laundry and office in the basement. Prior to admission, patient received no assistance, and had no services in home. Durable medical equipment at home includes glucometer. Patient has not had a stay at an acute care hospital in the last 30 days. Patient admitted 12/04-12/09 Readmission Risk (patient becomes high risk with a score of 8 or greater) 5 Total Score 5 Prior Hospitalizations Primary Emergency Contact: José Miguel Jones PCP verified as Guerrero Middleton PA-C. Patient's insurance verified as Payor: AMY / Plan: OUT OF STATE BLUE PREFERRED / Product Type: Blue Cross / [facility] [place] [place] [facility] [address] Discussed discharge goals and possible discharge needs including home with spouse. No discharge needs identified at this time. Care Management contact information provided. Care Management will continue to follow and assist asneeded. Zahraa Latham home care aide [phone] documented in this encounter Plan of Treatment Upcoming Encounters Date Type Department Care Team (Late st Contact Info) Description 09/14/2024 3:00 PM CDT Office [facility] [address] [place] [address] Mike Mayer MD [address] [place] [address] documented as of this encounter Procedures Procedure Name Priority Date/Time Associated Diagnosis Comments POC GLUCOSE Routine 02/18/2018 10:55 AM CDT TRIGLYCERIDE Routine 02/18/2018 4:40 AM CDT BASIC METABOLIC PANEL Routine 02/18/2018 4:40 AM CDT POC GLUCOSE Routine 02/18/2018 12:32 AM CDT POC GLUCOSE Routine 02/17/2018 7:59 PM CDT POC GLUCOSE Routine 02/17/2018 6:50 PM CDT POC GLUCOSE Routine 02/17/2018 12:24 PM CDT POC GLUCOSE Routine 02/17/2018 8:43 AM CDT TRIGLYCERIDE Routine 02/17/2018 4:22 AM CDT POC GLUCOSE Routine 02/17/2018 3:58 AM CDT POC GLUCOSE Routine 02/17/2018 12:29 AM CDT POC GLUCOSE Routine 02/16/2018 8:25 PM CDT POC GLUCOSE Routine 02/16/2018 4:05 PM CDT POC GLUCOSE Routine 02/16/2018 12:41 PM CDT POC GLUCOSE Routine 02/16/2018 9:24 AM CDT POC GLUCOSE Routine 02/16/2018 4:50 AM CDT LIPID PANEL Routine 02/16/2018 4:36 AM CDT BASIC METABOLIC PANEL Routine 02/16/2018 4:36 AM CDT POC GLUCOSE Routine 02/16/2018 12:24 AM CDT POC GLUCOSE Routine 02/15/2018 8:43 PM CDT POC GLUCOSE Routine 02/15/2018 5:04 PM CDT POC GLUCOSE Routine 02/15/2018 12:14 PM CDT LIPASE Routine 02/15/2018 11:07 AM CDT LIPID PANEL Routine 02/15/2018 11:07 AM CDT POC GLUCOSE Routine 02/15/2018 8:10 AM CDT POC GLUCOSE Routine 02/15/2018 4:30 AM CDT POC GLUCOSE Routine 02/15/2018 12:03 AM CDT POC GLUCOSE Routine 02/14/2018 8:17 PM CDT POC GLUCOSE Routine 02/14/2018 4:29 PM CDT POC GLUCOSE Routine 02/14/2018 11:54 AM CDT POC GLUCOSE Routine 02/14/2018 8:09 AM CDT POC GLUCOSE Routine 02/14/2018 5:10 AM CDT TRIGLYCERIDE Routine 02/14/2018 4:25 AM CDT BASIC METABOLIC PANEL Routine 02/14/2018 4:25 AM CDT POC GLUCOSE Routine 02/13/2018 11:47 PM CDT POC GLUCOSE Routine 02/13/2018 8:03 PM CDT POC GLUCOSE Routine 02/13/2018 3:53 PM CDT POC GLUCOSE Routine 02/13/2018 12:00 PM CDT POC GLUCOSE Routine 02/13/2018 8:03 AM CDT LIPID PANEL Routine 02/13/2018 6:05 AM CDT BASIC METABOLIC PANEL Routine 02/13/2018 6:05 AM CDT POC GLUCOSE Routine 02/13/2018 3:37 AM CDT POC GLUCOSE Routine 02/12/2018 11:43 PM CDT POC GLUCOSE Routine 02/12/2018 9:13 PM CDT POC GLUCOSE Routine 02/12/2018 3:46 PM CDT POC GLUCOSE Routine 02/12/2018 12:16 PM CDT POC GLUCOSE Routine 02/12/2018 8:18 AM CDT LIPID PANEL Routine 02/12/2018 4:20 AM CDT BASIC METABOLIC PANEL Routine 02/12/2018 4:20 AM CDT POC GLUCOSE Routine 02/12/2018 4:15 AM CDT POC GLUCOSE Routine 02/12/2018 12:30 AM CDT TSH Routine 02/11/2018 10:35 PM CDT POC GLUCOSE Routine 02/11/2018 7:27 PM CDT POC GLUCOSE Routine 02/11/2018 4:26 PM CDT POC GLUCOSE Routine 02/11/2018 2:00 PM CDT POC GLUCOSE Routine 02/11/2018 12:07 PM CDT POC GLUCOSE Routine 02/11/2018 11:45 AM CDT POC GLUCOSE Routine 02/11/2018 11:15 AM CDT POC GLUCOSE Routine 02/11/2018 9:39 AM CDT POC GLUCOSE Routine 02/11/2018 8:54 AM CDT POC GLUCOSE Routine 02/11/2018 8:11 AM CDT POC GLUCOSE Routine 02/11/2018 7:52 AM CDT POC GLUCOSE Routine 02/11/2018 7:34 AM CDT POC GLUCOSE Routine 02/11/2018 6:24 AM CDT CBC WITH DIFFERENTIAL Routine 02/11/2018 5:08 AM CDT LIPID PANEL Routine 02/11/2018 5:07 AM CDT BASIC METABOLIC PANEL Routine 02/11/2018 5:07 AM CDT POC GLUCOSE Routine 02/11/2018 5:03 AM CDT POC GLUCOSE Routine 02/11/2018 4:22 AM CDT POC GLUCOSE Routine 02/11/2018 4:04 AM CDT POC GLUCOSE Routine 02/11/2018 3:12 AM CDT POC GLUCOSE Routine 02/11/2018 2:02 AM CDT POC GLUCOSE Routine 02/11/2018 12:40 AM CDT LIPID PANEL Stat 02/10/2018 11:53 PM CDT documented in this encounter Results * (ABNORMAL) POC GLUCOSE (02/18/2018 10:55 AM CDT) GLUCOSE POC 143(H) 74 - 99 mg/dL 02/18/2018 11:06 AM CDT [facility] BLACK JACK DEALER NAME POC JENNY ZIMMERMAN 02/18/2018 11:06 AM CDT [facility] Whole blood specimen (specimen) 02/18/2018 10:55 AM CDT 02/18/2018 11:06 AM CDT Odette Che MD POINT OF CARE TESTIN [id number] [address] [place] [id number] * (ABNORMAL) TRIGLYCERIDE (02/18/2018 4:40 AM CDT) TRIGLYCERIDE 707(H) <150 mg/dL 02/18/2018 5:49 AM CDT [facility] Blood Venipuncture / Unknown 02/18/2018 4:40 AM CDT 02/18/2018 5:03 AM CDT Narrative [facility] - 02/18/2018 5:49 AM CDT TRIGLYCERIDES ? mg/dL Normal ?< 150 Borderline High ?150 - 199 High ? 200 - 499 Very High ? >= 500 Based on AHA/NCEP Guidelines. Vlad Covarrubias MD CHEMISTRY ORDERABLES [facility] - [facility]# [id number] [address] [place] [address] * (ABNORMAL) BASIC METABOLIC PANEL (02/18/2018 4:40 AM CDT) SODIUM 141 136 - 145 mmol/L 02/18/2018 5:49 AM CDT [facility] - [facility] POTASSIUM 3.8 3.5 - 5.0 mmol/L 02/18/2018 5:49 AM T [facility] - [facility] CHLORIDE 102 98 - 107 mmol/L 02/18/2018 5:49 AM T [facility] CO2 27 22 - 29 mmol/L 02/18/2018 5:49 AM [facility] - [facility] CALCIUM 9.2 8.6 - 10.2 mg/dL 02/18/2018 5:49 AM [facility] BUN 5(L) 6 - 20 mg/dL 02/18/2018 5:49 AM T [facility] CREATININE 0.68 0.51 - 0.95 mg/dL 02/18/2018 5:49 AM T [facility] GLUCOSE 161(H) 74 - 99 mg/dL 02/18/2018 5:49 AM T [facility] GFR >60 >=60 mL/min/1.7 3 sq meter 02/18/2018 5:49 AM T [facility] - [facility] Comment: eGFR [...] GFR, >60 >=60 mL/min/1.7 3 sq meter 02/18/2018 5:49 AM CDT [facility] SERVICES [facility] ANION GAP 12 8 - 16 mmol/L 02/18/2018 5:49 AM CDT [facility] Blood Venipuncture / Unknown 02/18/2018 4:40 AM CDT 02/18/2018 5:03 AM CDT Vlad Covarrubias MD CHEMISTRY ORDERABLES Performing Organization Address [facility] Co de Phone Number [facility]# [id number] [address] [facility] [place] [address] * (ABNORMAL) POC GLUCOSE (02/18/2018 12:32 AM CDT) [facility] Signature GLUCOSE POC 163(H) 74 - 99 mg/dL 02/18/2018 12:48 AM CDT [facility] BLACK JACK DEALER NAME POC JUANITA RAMIREZ 02/18/2018 12:48 AM CDT [facility] Whole blood specimen (specimen) 02/18/2018 12:32 AM CDT 02/18/2018 12:48 AM CDT Vlad Covarrubias MD POINT OF CARE TESTIN G Performing Organization Address [facility]/ZIP Co de Phone Number [facility]# [id number] [address] [facility] [place] [place] [address] * (ABNORMAL) POC GLUCOSE (02/17/2018 7:59 PM CDT) GLUCOSE POC 120(H) 74 - 99 mg/dL 02/17/2018 8:10 PM CDT [facility] - [facility] COMMENT, GLU POC Notified RN/ 02/17/2018 8:10 PM CDT [facility] SERVICES - [facility] BLACK JACK DEALER NAME POC SHAINA ROGERS 02/17/2018 8:10 PM CDT [facility] - [facility] Whole blood specimen (specimen) 02/17/2018 7:59 PM CDT 02/17/2018 8:10 PM CDT Vlad Covarrubias MD POINT OF CARE TESTIN G [facility] CLIA# [id number] [address] [place] [address] * (ABNORMAL) POC GLUCOSE (02/17/2018 6:50 PM CDT) GLUCOSE POC 136(H) 74 - 99 mg/dL 02/17/2018 7:02 PM CDT [facility] SERVICES - [facility] COMMENT, GLU POC Notified BREANN 02/17/2018 7:02 PM CDT [facility] SERVICES - [facility] BLACK JACK DEALER NAME POC CLIFFORD LOPEZ 02/17/2018 7:02 PM CDT [facility] - [facility] Whole blood specimen (specimen) 02/17/2018 6:50 PM CDT 02/17/2018 7:02 PM CDT Vlad Covarrubias MD POINT OF CARE TESTIN G [facility] Track [facility] CLLA# [id number] [address] [place] [address] * (ABNORMAL) POC GLUCOSE (02/17/2018 12:24 PM CDT) GLUCOSE POC 112(H) 74 - 99 mg/dL 02/17/2018 12:37 PM CDT [facility] SERVICES [facility] COMMENT, GLU POC Notified BREANN 02/17/2018 12:37 PM CDT [facility] BLACK JACK DEALER NAME CLIFFORD ABREU 02/17/2018 12:37 PM CDT [facility] Whole blood specimen (specimen) 02/17/2018 12:24 PM CDT 02/17/2018 12:37 PM CDT Vlad Covarrubias MD POINT OF CARE TESTIN Performing Organization Address [facility]/ZIP Co de Phone Number [facility] CLIA# [id number] [address] [place] [address] * (ABNORMAL) POC GLUCOSE (02/17/2018 8:43 AM CDT) GLUCOSE POC 124(H) 74 - 99 mg/dL 02/17/2018 10:08 AM CDT [facility] COMMENT, GLU POC Notified RN/MD 02/17/2018 10:08 AM CDT [facility] BLACK JACK DEALER NAME CLIFFORD ABREU 02/17/2018 10:08 AM CDT [facility] Whole blood specimen (specimen) 02/17/2018 8:43 AM CDT 02/17/2018 10:08 AM CDT Vlad Covarrubias MD POINT OF CARE TESTJERONIMO Performing Organization Address [facility]/ZIP Co de Phone Number [facility] Track [facility]# [id number] [address] [place] [address] * (ABNORMAL) TRIGLYCERIDE (02/17/2018 4:22 AM CDT) TRIGLYCERIDE 853(H) <150 mg/dL 02/17/2018 5:40 AM CDT [facility] [employer] [facility] Blood Venipuncture / Unknown 02/17/2018 4:22 AM CDT 02/17/2018 5:05 AM CDT [facility]ative [facility] - 02/17/2018 5:40 AM CDT TRIGLYCERIDES ? mg/dL Normal ?< 150 Borderline High ?150 - 199 High ? 200 - 499 Very High ? >= 500 Based on AHA/NCEP Guidelines. Vlad Covarrubias MD CHEMISTRY ORDERABLES Performing Organization Address [facility] Phone Number [facility]# [id number] [address] [place] [address] * (ABNORMAL) POC GLUCOSE (02/17/2018 3:58 AM CDT) GLUCOSE POC 113(H) 74 - 99 mg/dL 02/17/2018 10:08 AM CDT [facility] COMMENT, GLU POC Notified RN/MD 02/17/2018 10:08 AM CDT [facility] BLACK JACK DEALER NAME POC SHAINA ROGERS 02/17/2018 10:08 AM CDT [employer] Whole blood specimen (specimen) 02/17/2018 3:58 AM CDT 02/17/2018 10:08 AM CDT Vlad Covarrubias MD POINT OF CARE TESTIN G Performing Organization Address [facility] Phone Number [facility] Track [facility] [id number] [facility] [place] [address] * (ABNORMAL) POC GLUCOSE (02/17/2018 12:29 AM CDT) GLUCOSE POC 117(H) 74 - 99 mg/dL 02/17/2018 12:41 AM CDT [facility] COMMENT, GLU POC Notified RN/MD 02/17/2018 12:41 AM CDT [facility] BLACK JACK DEALER NAME POC KEN SHAINA 02/17/2018 12:41 AM CDT [employer] [facility] Whole blood specimen (specimen) 02/17/2018 12:29 AM CDT 02/17/2018 12:41 AM CDT Vlad Covarrubias MD POINT OF CARE TESTIN G [facility] [id number] [address] [place] [address] * POC GLUCOSE (02/16/2018 8:25 PM CDT) GLUCOSE POC 94 74 - 99 mg/dL 02/16/2018 8:47 PM CDT [facility] SERVICES [facility] BLACK JACK DEALER NAME POC JUANITA RAMIREZ 02/16/2018 8:47 PM CDT [facility] SERVICES [facility] Whole blood specimen (specimen) 02/16/2018 8:25 PM CDT 02/16/2018 8:47 PM CDT Vlad Covarrubias MD POINT OF CARE TESTJERONIMO Serrano Performing Organization Address [facility]/ZIP Co de Phone Number [facility]# [id number] [address] [address] * POC GLUCOSE (02/16/2018 4:05 PM CDT) GLUCOSE POC 91 74 - 99 mg/dL 02/16/2018 4:17 PM CDT [facility] BLACK JACK DEALER NAME POC KATI DUMONT 02/16/2018 4:17 PM CDT [facility] SERVICES [facility] Whole blood specimen (specimen) 02/16/2018 4:05 PM CDT 02/16/2018 4:17 PM CDT Vlad Covarrubias MD POINT OF CARE TESTIN Maggie [facility] LABORATORY [facility] CLIA# [id number] [address] [place] [address] * POC GLUCOSE (02/16/2018 12:41 PM CDT) GLUCOSE POC 95 74 - 99 mg/dL 02/16/2018 12:57 PM CDT [facility]ORATORY SERVICES - [facility] BLACK JACK DEALER NAME POC KATI DUMONT 02/16/2018 12:57 PM CDT [facility]OR[facility]ORY SERVICES - [facility] Whole blood specimen (specimen) 02/16/2018 12:41 PM CDT 02/16/2018 12:57 PM CDT Vlad Covarrubias MD POINT OF CARE TESTIN G Performing Organization Address City/[facility]/ZIP Co de Phone Number [facility] CLIA# [id number] [address] [place] [address] * POC GLUCOSE (02/16/2018 9:24 AM CDT) GLUCOSE POC 84 74 - 99 mg/dL 02/16/2018 9:35 AM CDT [facility] LABORATORY SERVICES [facility] BLACK JACK DEALER NAME POC MIKE SPAULDING 02/16/2018 9:35 AM CDT [facility] Whole blood specimen (specimen) 02/16/2018 9:24 AM CDT 02/16/2018 9:35 AM CDT Vlad Covarrubias MD POINT OF CARE TESTIN G [facility]OR[facility]ORY [facility]# [id number] [address] [place] [address] * POC GLUCOSE (02/16/2018 4:50 AM CDT) GLUCOSE POC 95 74 - 99 mg/dL 02/16/2018 5:05 AM CDT [facility]ORATORY SERVICES [facility] COMMENT, GLU POC Notified RN/MD 02/16/2018 5:05 AM CDT [facility] - [facility] BLACK JACK DEALER NAME POC LLOYDRADHA VALE (ANA M BERTRAND) 02/16/2018 5:05 AM CDT [facility] Whole blood specimen (specimen) 02/16/2018 4:50 AM CDT 02/16/2018 5:05 AM CDT Vlad Covarrubias MD POINT OF CARE TESTIN aMggie [facility]ORATORY SERVICES [facility] CLIA# [id number] [address] [facility] [place] [place] [address] * (ABNORMAL) BASIC METABOLIC PANEL (02/16/2018 4:36 AM CDT) SODIUM 139 136 - 145 mmol/L 02/17/2018 12:51 AM [facility] [place] LABORATORY SERVICES - [facility] POTASSIUM 3.4(L) 3.5 - 5.0 mmol/L 02/17/2018 12:51 AM [facility] Track [facility] CHLORIDE 102 98 - 107 mmol/L 02/17/2018 12:51 AM [facility] Track [facility] CO2 20(L) 22 - 29 mmol/L 02/17/2018 12:51 AM [facility] Track [facility] CALCIUM 8.1(L) 8.6 - 10.2 mg/dL 02/17/2018 12:51 AM [facility] Track [facility] BUN 3(L) 6 - 20 mg/dL 02/17/2018 12:51 AM [facility] Track [facility] CREATININE 0.52 0.51 - 0.95 mg/dL 02/17/2018 12:51 AM [facility] Track [facility] GLUCOSE 96 74 - 99 mg/dL 02/17/2018 12:51 AM [facility] Track [facility] GFR >60 >=60 mL/min/1.7 3 sq meter 02/17/2018 12:51 AM [facility] [place] Track SERVICES - [facility] Comment: eGFR has [...] GFR, >60 >=60 mL/min/1.7 3 sq meter 02/17/2018 12:51 AM CDT [facility]ORY [facility] ANION GAP 17(H) 8 - 16 mmol/L 02/17/2018 12:51 AM CDT [facility] Track [facility] Blood Venipuncture / Unknown 02/16/2018 4:36 AM CDT 02/16/2018 4:39 AM CDT Vlad Covarrubias MD CHEMISTRY ORDERABLES [facility] Track [facility]# [id number] [address] [facility] [place] [address] * (ABNORMAL) LIPID PANEL (02/16/2018 4:36 AM CDT) CHOLESTEROL 340(H) <200 mg/dL 02/16/2018 5:20 AM CDT [facility] Track [facility] TRIGLYCERIDE 910(H) <150 mg/dL 02/16/2018 5:20 AM CDT [facility] Track [facility] HDL 25(L) 40 - 59 mg/dL 02/16/2018 5:20 AM T [facility] Track [facility] LDL CALCULATED <100 mg/dL 02/16/2018 5:20 AM T [facility] Track [facility] Comment:Calculated LDL is no t accurate when the Triglyceride value exceeds 400. NON-HDL CHOLESTEROL 315(H) <130 mg/dL 02/16/2018 5:20 AM T [facility] Track [facility] Blood Venipuncture / Unknown 02/16/2018 4:36 AM CDT 02/16/2018 4:39 AM CDT Narrative [facility] LAB[facility]ORY [facility] - 02/16/2018 5:20 AM CDT TOTAL CHOLESTEROL ??mg/dL ??Desirable <200 [...] Guidelines Reference Ranges for Lipid Panels (NCEP/AMA) Vlad Covarrubias MD CHEMISTRY ORDERABLES Performing Organization Address [facility]/ZIP Co de Phone Number [facility]# [id number] [address] [place] [id number] * (ABNORMAL) POC GLUCOSE (02/16/2018 12:24 AM CDT) GLUCOSE POC 101(H) 74 - 99 mg/dL 02/16/2018 12:35 AM CDT [facility]ORY [facility] BLACK JACK DEALER NAME VALE RAO (ANA M BERTRAND) 02/16/2018 12:35 AM CDT [facility] Whole blood specimen (specimen) 02/16/2018 12:24 AM CDT 02/16/2018 12:35 AM CDT Vlad Covarrubias MD POINT OF CARE TESTIN G Performing Organization Address [facility]/ZIP Co de Phone Number [facility]# [id number] [address] [place] [address] * POC GLUCOSE (02/15/2018 8:43 PM CDT) GLUCOSE POC 84 74 - 99 mg/dL 02/15/2018 8:59 PM CDT [facility] COMMENT, GLU POC Notified RN/MD 02/15/2018 8:59 PM CDT [facility] LABORATORY SERVICES [facility] BLACK JACK DEALER NAME VALE RAO (ANA M BERTRAND) 02/15/2018 8:59 PM CDT [facility] LABORATORY SERVICES [facility] Whole blood specimen (specimen) 02/15/2018 8:43 PM CDT 02/15/2018 8:59 PM CDT Vlad Covarrubias MD POINT OF CARE TESTIN G [facility] LAB[facility]ORY [facility]# [id number] [address] [place] [address] * POC GLUCOSE (02/15/2018 5:04 PM CDT) GLUCOSE POC 92 74 - 99 mg/dL 02/15/2018 5:15 PM CDT [facility]ORY [facility] BLACK JACK DEALER NAME POC LAURA MULLINS 02/15/2018 5:15 PM CDT [facility] LABORATORY SERVICES [facility] Whole blood specimen (specimen) 02/15/2018 5:04 PM CDT 02/15/2018 5:15 PM CDT Vlad Covarrubias MD POINT OF CARE TESTIN G Performing Organization Address [facility]/ZIP Co de Phone Number [facility] Track [facility]# [id number] [address] [place] [address] * (ABNORMAL) POC GLUCOSE (02/15/2018 12:14 PM CDT) GLUCOSE POC 118(H) 74 - 99 mg/dL 02/15/2018 12:28 PM CDT [facility] LABORATORY SERVICES [facility] BLACK JACK DEALER NAME POC LAURA MULLINS 02/15/2018 12:28 PM CDT [facility] Whole blood specimen (specimen) 02/15/2018 12:14 PM CDT 02/15/2018 12:28 PM CDT Vlad Covarrubias MD POINT OF CARE TESTIN G Performing Organization Address City/[facility]/ZIP Co de Phone Number [facility]ORY [facility] CLIA# [id number] [address] [place] [address] * LIPASE (02/15/2018 11:07 AM CDT) LIPASE 15 13 - 60 U/L 02/15/2018 3:53 PM CDT [facility] Blood Venipuncture / Unknown 02/15/2018 11:07 AM CDT 02/15/2018 11:24 AM CDT Vlad Covarrubias MD CHEMISTRY ORDERABLES [facility] CLIA# [id number] [address] [place] [address] * (ABNORMAL) LIPID PANEL (02/15/2018 11:07 AM CDT) CHOLESTEROL 362(H) <200 mg/dL 02/15/2018 12:29 PM CDT [facility] TRIGLYCERIDE 1,083(H) <150 mg/dL 02/15/2018 12:29 PM T [facility] HDL 24(L) 40 - 59 mg/dL 02/15/2018 12:29 PM T [facility] LDL CALCULATED <100 mg/dL 02/15/2018 12:29 PM T [facility] Comment:Calculated LDL is no t accurate when the Triglyceride value exceeds 400. NON-HDL CHOLESTEROL 338(H) <130 mg/dL 02/15/2018 12:29 PM T [facility] Blood Venipuncture / Unknown 02/15/2018 11:07 AM CDT 02/15/2018 11:24 AM CDT Narrative [facility] - 02/15/2018 12:29 PM CDT TOTAL CHOLESTEROL ??mg/dL ??Desirable <200 [...] Guidelines Reference Ranges for Lipid Panels (NCEP/AMA) Vlad Covarrubias MD CHEMISTRY ORDERABLES Performing Organization Address [facility]/ZIP Co de Phone Number [facility]ORY [facility] CLIA# [id number] [address] [place] [address] * (ABNORMAL) POC GLUCOSE (02/15/2018 8:10 AM CDT) GLUCOSE POC 106(H) 74 - 99 mg/dL 02/15/2018 8:22 AM CDT [facility] LABORATORY SERVICES [facility] BLACK JACK DEALER NAME POC LAURA MULLINS 02/15/2018 8:22 AM CDT [facility] LABORATORY SERVICES [facility] Whole blood specimen (specimen) 02/15/2018 8:10 AM CDT 02/15/2018 8:22 AM CDT Vlad Covarrubias MD POINT OF CARE TESTIN G Performing Organization Address [facility] Co de Phone Number [facility] [id number] [address] [place] [address] * (ABNORMAL) POC GLUCOSE (02/15/2018 4:30 AM CDT) GLUCOSE POC 106(H) 74 - 99 mg/dL 02/15/2018 4:44 AM CDT [facility] COMMENT, GLU POC Notified RN/MD 02/15/2018 4:44 AM CDT [facility] BLACK JACK DEALER NAME POC VALE NAVA (ANA M BERTRAND) 02/15/2018 4:44 AM CDT [facility] Whole blood specimen (specimen) 02/15/2018 4:30 AM CDT 02/15/2018 4:44 AM CDT Vlad Covarrubias MD POINT OF CARE TESTJERONIMO Serrano Performing Organization Address [facility]/ZIP Co de Phone Number [facility]ORY [facility] CLIA# [id number] [address] [place] [address] * (ABNORMAL) POC GLUCOSE (02/15/2018 12:03 AM CDT) GLUCOSE POC 107(H) 74 - 99 mg/dL 02/15/2018 12:19 AM CDT [facility]ORY [facility] BLACK JACK DEALER NAME POC VALE NAVA (ANA M BERTRAND) 02/15/2018 12:19 AM CDT [facility] LABORATORY SERVICES [facility] Whole blood specimen (specimen) 02/15/2018 12:03 AM CDT 02/15/2018 12:19 AM CDT Vlad Covarrubias MD POINT OF CARE TESTJERONIMO Serrano Performing Organization Address [facility] Co de Phone Number [facility] Track [facility] CLIA# [id number] [address] [place] [address] * (ABNORMAL) POC GLUCOSE (02/14/2018 8:17 PM CDT) GLUCOSE POC 111(H) 74 - 99 mg/dL 02/14/2018 8:29 PM CDT [facility] LABORATORY SERVICES [facility] COMMENT, GLU POC Notified RN/MD 02/14/2018 8:29 PM CDT [facility] LABORATORY SERVICES [facility] BLACK JACK DEALER NAME POC VALE NAVA (ANA M BERTRAND) 02/14/2018 8:29 PM CDT [facility] LABORATORY SERVICES [facility] Whole blood specimen (specimen) 02/14/2018 8:17 PM CDT 02/14/2018 8:29 PM CDT Vlad Covarrubias MD POINT OF CARE TESTJERONIMO Serrano [facility] [id number] [address] [place] [address] * (ABNORMAL) POC GLUCOSE (02/14/2018 4:29 PM CDT) GLUCOSE POC 102(H) 74 - 99 mg/dL 02/14/2018 4:48 PM CDT [facility] LABORATORY SERVICES [facility] COMMENT, GLU POC Notified RN/MD 02/14/2018 4:48 PM CDT [facility] LABORATORY SERVICES [facility] BLACK JACK DEALER NAME POC NATHALIE ESPINAL 02/14/2018 4:48 PM CDT [facility] LABORATORY SERVICES [facility] Whole blood specimen (specimen) 02/14/2018 4:29 PM CDT 02/14/2018 4:48 PM CDT Vlad Covarrubias MD POINT OF CARE TESTJERONIMO Serrano Performing Organization Address [facility]/ZIP Co de Phone Number [facility]# [id number] [address] [place] [address] * (ABNORMAL) POC GLUCOSE (02/14/2018 11:54 AM CDT) GLUCOSE POC 103(H) 74 - 99 mg/dL 02/14/2018 12:11 PM CDT [facility] LAB[facility]ATORY [facility] BLACK JACK DEALER NAME POC KATI DUMONT 02/14/2018 12:11 PM CDT [facility] LABORATORY SERVICES [facility] Whole blood specimen (specimen) 02/14/2018 11:54 AM CDT 02/14/2018 12:11 PM CDT Vlad Covarrubias MD POINT OF CARE TESTJERONIMO Serrano [facility] LABORATORY [facility] CLIA# [id number] [address] [place] [address] * (ABNORMAL) POC GLUCOSE (02/14/2018 8:09 AM CDT) GLUCOSE POC 115(H) 74 - 99 mg/dL 02/14/2018 8:28 AM CDT [facility] LABORATORY SERVICES [facility] BLACK JACK DEALER NAME POC KATI DUMONT 02/14/2018 8:28 AM CDT [facility] LABORATORY SERVICES [facility] Whole blood specimen (specimen) 02/14/2018 8:09 AM CDT 02/14/2018 8:28 AM CDT Vlad Covarrubias MD POINT OF CARE TESTIN G [facility] Track [facility] CLIA# [id number] [address] [place] [address] * (ABNORMAL) POC GLUCOSE (02/14/2018 5:10 AM CDT) GLUCOSE POC 116(H) 74 - 99 mg/dL 02/14/2018 5:21 AM CDT [facility] LABORATORY SERVICES [facility] COMMENT, GLU POC Notified RN/MD 02/14/2018 5:21 AM CDT [facility] BLACK JACK DEALER NAME POC JOVON YOUSIF 02/14/2018 5:21 AM CDT [facility] Whole blood specimen (specimen) 02/14/2018 5:10 AM CDT 02/14/2018 5:21 AM CDT Vlad Covarrubias MD POINT OF CARE TESTJERONIMO Serrano [facility] LABORATORY [facility] CLIA# [id number] [address] [place] [address] * (ABNORMAL) TRIGLYCERIDE (02/14/2018 4:25 AM CDT) TRIGLYCERIDE 1,330(H) <150 mg/dL 02/14/2018 5:43 AM CDT [facility] LABORATORY SERVICES [facility] Blood Venipuncture / Unknown 02/14/2018 4:25 AM CDT 02/14/2018 4:49 AM CDT Narrative [facility] LABORATORY SERVICES - [facility] - 02/14/2018 5:43 AM CDT TRIGLYCERIDES ? mg/dL Normal ?< 150 Borderline High ?150 - 199 High ? 200 - 499 Very High ? >= 500 Based on AHA/NCEP Guidelines. Vlad Covarrubias MD CHEMISTRY ORDERABLES [facility] LABORATORY SERVICES - [facility] CLIA# [id number] [address] [facility] [place] [address] * (ABNORMAL) BASIC METABOLIC PANEL (02/14/2018 4:25 AM CDT) SODIUM 138 136 - 145 mmol/L 02/14/2018 5:30 AM CDT [facility] LABORATORY SERVICES - [facility] POTASSIUM 3.9 3.5 - 5.0 mmol/L 02/14/2018 5:30 AM CDT [facility] - [facility] CHLORIDE 99 98 - 107 mmol/L 02/14/2018 5:30 AM CDT [facility] - [facility] CO2 24 22 - 29 mmol/L 02/14/2018 5:30 AM CDT [facility] - [facility] CALCIUM 9.0 8.6 - 10.2 mg/dL 02/14/2018 5:30 AM CDT [facility] - [facility] BUN 4(L) 6 - 20 mg/dL 02/14/2018 5:30 AM CDT [facility] - [facility] CREATININE 0.75 0.51 - 0.95 mg/dL 02/14/2018 5:30 AM CDT [facility] - [facility] GLUCOSE 117(H) 74 - 99 mg/dL 02/14/2018 5:30 AM CDT [facility] - [facility] GFR >60 >=60 mL/min/1.7 3 sq meter 02/14/2018 5:30 AM CDT [facility] - [facility] Comment: eGFR [...] GFR, >60 >=60 mL/min/1.7 3 sq meter 02/14/2018 5:30 AM CDT [facility] LABORATORY SERVICES [facility] ANION GAP 15 8 - 16 mmol/L 02/14/2018 5:30 AM CDT [facility] LAB[facility]ATORY [facility] Blood Venipuncture / Unknown 02/14/2018 4:25 AM CDT 02/14/2018 4:49 AM CDT Vlad Covarrubias MD CHEMISTRY ORDERABLES Performing Organization Address City/[facility]/ZIP Co de Phone Number [facility]# [id number] [address] [place] [address] * (ABNORMAL) POC GLUCOSE (02/13/2018 11:47 PM CDT) [facility] Signature GLUCOSE POC 116(H) 74 - 99 mg/dL 02/13/2018 11:59 PM CDT [facility]ORY [facility] COMMENT, GLU POC Notified RN/ 02/13/2018 11:59 PM CDT [facility] LAB[facility]ATORY [facility] BLACK JACK DEALER NAME POC JOVON YOUSIF 02/13/2018 11:59 PM CDT [facility] LAB[facility]ORY [facility] Whole blood specimen (specimen) 02/13/2018 11:47 PM CDT 02/13/2018 11:59 PM CDT Vlad Covarrubias MD POINT OF CARE TESTIN G Performing Organization Address [facility]/ZIP Co de Phone Number [facility] Track [facility] CLIA# [id number] [address] [place] [address] * (ABNORMAL) POC GLUCOSE (02/13/2018 8:03 PM CDT) GLUCOSE POC 109(H) 74 - 99 mg/dL 02/13/2018 8:19 PM CDT [facility] LABORATORY SERVICES - [facility] COMMENT, GLU POC Notified RN/MD 02/13/2018 8:19 PM CDT [facility] LABORATORY SERVICES - [facility] BLACK JACK DEALER NAME POC MOISÉS SALCIDO 02/13/2018 8:19 PM CDT [facility] LABORATORY SERVICES [facility] Whole blood specimen (specimen) 02/13/2018 8:03 PM CDT 02/13/2018 8:19 PM CDT Vlad Covarrubias MD POINT OF CARE TESTIN G [facility] CLIA# [id number] [address] [place] [address] * (ABNORMAL) POC GLUCOSE (02/13/2018 3:53 PM CDT) GLUCOSE POC 104(H) 74 - 99 mg/dL 02/13/2018 4:06 PM CDT [facility] LABORATORY [facility] BLACK JACK DEALER NAME BRENNA LAMAS 02/13/2018 4:06 PM CDT [facility] LABORATORY [facility] Whole blood specimen (specimen) 02/13/2018 3:53 PM CDT 02/13/2018 4:06 PM CDT Vlad Covarrubias MD POINT OF CARE TESTIN G [facility] CLIA# [id number] [address] [place] [address] * (ABNORMAL) POC GLUCOSE (02/13/2018 12:00 PM CDT) GLUCOSE POC 122(H) 74 - 99 mg/dL 02/13/2018 12:13 PM CDT [facility] LABORATORY SERVICES [facility] BLACK JACK DEALER NAME POC BRENNA العلي 02/13/2018 12:13 PM CDT [facility] Track [facility] Whole blood specimen (specimen) 02/13/2018 12:00 PM CDT 02/13/2018 12:13 PM CDT Vlad Covarrubias MD POINT OF CARE TESTIN Maggie Performing Organization Address [facility]/ZIP Co de Phone Number [facility] Track [facility] CLIA# [id number] [address] [place] [address] * (ABNORMAL) POC GLUCOSE (02/13/2018 8:03 AM CDT) GLUCOSE POC 148(H) 74 - 99 mg/dL 02/13/2018 8:23 AM T [facility] Track [facility] BLACK JACK DEALER NAME POC BRENNA العلي 02/13/2018 8:23 AM T [facility] Track [facility] Whole blood specimen (specimen) 02/13/2018 8:03 AM CDT 02/13/2018 8:23 AM CDT Vlad Covarrubias MD POINT OF CARE TESTIN Maggie Performing Organization Address [facility]/ZIP Co de Phone Number [facility] Track [facility] CLIA# [id number] [address] [place] [address] * (ABNORMAL) LIPID PANEL (02/13/2018 6:05 AM CDT) CHOLESTEROL 438(H) <200 mg/dL 02/13/2018 7:00 AM T [facility] Track [facility] TRIGLYCERIDE 1,567(H) <150 mg/dL 02/13/2018 7:00 AM T [facility] Track [facility] HDL 40 - 59 mg/dL 02/13/2018 7:00 AM T [facility] Track [facility] Comment: Measured HDL is not accurate when the Triglyceride value exceeds 1200. LDL CALCULATED <100 mg/dL 02/13/2018 7:00 AM [facility] Track [facility] Comment:Calculated LDL is no t accurate when the Triglyceride value exceeds 400. NON-HDL CHOLESTEROL <130 mg/dL 02/13/2018 7:00 AM T [place] Track [facility] Comment:Non HDL Cholesterol cannot be calculated when the HDL value is suppressed. Blood Venipuncture / Unknown 02/13/2018 6:05 AM CDT 02/13/2018 6:09 AM CDT Narrative [place] Track [facility] - 02/13/2018 7:00 AM CDT TOTAL CHOLESTEROL ??mg/dL ??Desirable <200 [...] Guidelines Reference Ranges for Lipid Panels (NCEP/AMA) Vlad Covarrubias MD CHEMISTRY ORDERABLES [facility] Track [facility]# [id number] [address] [facility] [place] [address] * (ABNORMAL) BASIC METABOLIC PANEL (02/13/2018 6:05 AM CDT) SODIUM 135(L) 136 - 145 mmol/L 02/13/2018 6:47 AM T [place] Track [facility] POTASSIUM 3.7 3.5 - 5.0 mmol/L 02/13/2018 6:47 AM T [place] Track [facility] CHLORIDE 100 98 - 107 mmol/L 02/13/2018 6:47 AM T [facility] CO2 24 22 - 29 mmol/L 02/13/2018 6:47 AM T [facility] Track [facility] CALCIUM 8.8 8.6 - 10.2 mg/dL 02/13/2018 6:47 AM [facility] BUN 4(L) 6 - 20 mg/dL 02/13/2018 6:47 AM [facility] CREATININE 0.57 0.51 - 0.95 mg/dL 02/13/2018 6:47 AM [facility] GLUCOSE 140(H) 74 - 99 mg/dL 02/13/2018 6:47 AM [facility] GFR >60 >=60 mL/min/1.7 3 sq meter 02/13/2018 6:47 AM [facility] Comment: eGFR has not been [...] GFR, >60 >=60 mL/min/1.7 3 sq meter 02/13/2018 6:47 AM [facility] ANION GAP 11 8 - 16 mmol/L 02/13/2018 6:47 AM [facility] Blood Venipuncture / Unknown 02/13/2018 6:05 AM CDT 02/13/2018 6:09 AM CDT Vlad Covarrubias MD [id number] [address] [place] [address] * (ABNORMAL) POC GLUCOSE (02/13/2018 3:37 AM CDT) GLUCOSE POC 133(H) 74 - 99 mg/dL 02/13/2018 3:56 AM T [facility] BLACK JACK DEALER NAME POC DEMETRA GARCIA 02/13/2018 3:56 AM CDT [facility] Whole blood specimen (specimen) 02/13/2018 3:37 AM CDT 02/13/2018 3:56 AM CDT Vlad Covarrubias MD POINT OF CARE TESTIN G [facility] CLIA# [id number] [address] [place] [address] * (ABNORMAL) POC GLUCOSE (02/12/2018 11:43 PM CDT) GLUCOSE POC 124(H) 74 - 99 mg/dL 02/13/2018 12:01 AM CDT [facility] BLACK JACK DEALER NAME POC DEMETRA GARCIA 02/13/2018 12:01 AM CDT [facility] Whole blood specimen (specimen) 02/12/2018 11:43 PM CDT 02/13/2018 12:01 AM CDT Vlad Covarrubias MD POINT OF CARE TESTJERONIMO G Performing Organization Address [facility]/ZIP Co de Phone Number [facility] Track [facility] CLIA# [id number] [address] [place] [address] * (ABNORMAL) POC GLUCOSE (02/12/2018 9:13 PM CDT) GLUCOSE POC 143(H) 74 - 99 mg/dL 02/12/2018 9:36 PM CDT [facility] BLACK JACK DEALER NAME POC DONNA FERRARO (SARBHJIT) 02/12/2018 9:36 PM CDT [facility] Whole blood specimen (specimen) 02/12/2018 9:13 PM CDT 02/12/2018 9:36 PM CDT Vlad Covarrubias MD POINT OF CARE TESTIN G [id number] [address] [place] [address] * (ABNORMAL) POC GLUCOSE (02/12/2018 3:46 PM CDT) GLUCOSE POC 122(H) 74 - 99 mg/dL 02/12/2018 4:03 PM CDT [facility] SERVICES [facility] COMMENT, GLU POC Notified RN/ 02/12/2018 4:03 PM CDT [facility] SERVICES [facility] BLACK JACK DEALER NAME SHAINA CASTELLON 02/12/2018 4:03 PM CDT [facility] SERVICES [facility] Whole blood specimen (specimen) 02/12/2018 3:46 PM CDT 02/12/2018 4:03 PM CDT Vlad Covarrubias MD POINT OF CARE TESTJERONIMO Serrano [facility]# [id number] [address] [place] [address] * (ABNORMAL) POC GLUCOSE (02/12/2018 12:16 PM CDT) GLUCOSE POC 124(H) 74 - 99 mg/dL 02/12/2018 12:29 PM CDT [facility] SERVICES [facility] COMMENT, GLU POC Notified DEBORAH/ 02/12/2018 12:29 PM CDT [facility] SERVICES [facility] BLACK JACK DEALER NAME SHAINA CASTELLON 02/12/2018 12:29 PM CDT [facility] SERVICES [facility] Whole blood specimen (specimen) 02/12/2018 12:16 PM CDT 02/12/2018 12:28 PM CDT Vlad Covarrubias MD POINT OF CARE TESTIN Maggie [facility]# [id number] [address] [place] [address] * (ABNORMAL) POC GLUCOSE (02/12/2018 8:18 AM CDT) GLUCOSE POC 155(H) 74 - 99 mg/dL 02/12/2018 8:40 AM CDT [facility] LABORATORY SERVICES [facility] BLACK JACK DEALER NAME POC SHAINA DIAZ 02/12/2018 8:40 AM CDT [facility] LABOR[facility] SERVICES [facility] Whole blood specimen (specimen) 02/12/2018 8:18 AM CDT 02/12/2018 8:39 AM CDT Vlad Covarrubias MD POINT OF CARE TESTIN G [place] Track SERVICES [facility]# [id number] 5 [facility] [place] [address] * (ABNORMAL) BASIC METABOLIC PANEL (02/12/2018 4:20 AM CDT) SODIUM 138 136 - 145 mmol/L 02/12/2018 5:18 AM CDT [facility] LABORATORY SERVICES [facility] POTASSIUM 3.8 3.5 - 5.0 mmol/L 02/12/2018 5:18 AM CDT [facility] LABORAT[facility] SERVICES [facility] CHLORIDE 103 98 - 107 mmol/L 02/12/2018 5:18 AM CDT [facility] LABORATORY SERVICES - [facility] CO2 24 22 - 29 mmol/L 02/12/2018 5:18 AM CDT [facility] LABORATORY SERVICES [facility] CALCIUM 7.9(L) 8.6 - 10.2 mg/dL 02/12/2018 5:18 AM CDT [facility] LABORATORY SERVICES [facility] BUN 7 6 - 20 mg/dL 02/12/2018 5:18 AM CDT [facility] LABORATORY SERVICES - [facility] CREATININE 0.55 0.51 - 0.95 mg/dL 02/12/2018 5:18 AM CDT [facility] SERVICES [facility] GLUCOSE 150(H) 74 - 99 mg/dL 02/12/2018 5:18 AM CDT [facility] LABORATORY SERVICES [facility] GFR >60 >=60 mL/min/1.7 3 sq meter 02/12/2018 5:18 AM CDT [facility] LABORATORY SERVICES [facility] Comment: eGFR has not been validated [...] GFR, >60 >=60 mL/min/1.7 3 sq meter 02/12/2018 5:18 AM CDT [facility] Track [facility] ANION GAP 11 8 - 16 mmol/L 02/12/2018 5:18 AM T [facility] Track [facility] Blood Venipuncture / Unknown 02/12/2018 4:20 AM CDT 02/12/2018 4:25 AM CDT Vlad Covarrubias MD CHEMISTRY ORDERABLES Performing Organization Address City/State/[facility] Co de Phone Number [facility] Track [facility]# [id number] [address] [place] [address] * (ABNORMAL) LIPID PANEL (02/12/2018 4:20 AM CDT) CHOLESTEROL 428(H) <200 mg/dL 02/12/2018 5:29 AM [facility] Track [facility] TRIGLYCERIDE 1,744(H) <150 mg/dL 02/12/2018 5:29 AM [facility] Track [facility] HDL 40 - 59 mg/dL 02/12/2018 5:29 AM [facility] Track [facility] Comment: Measured HDL is not accurate when the Triglyceride value exceeds 1200. LDL CALCULATED <100 mg/dL 02/12/2018 5:29 AM [facility] Track [facility] Comment:Calculated LDL is no t accurate when the Triglyceride value exceeds 400. NON-HDL CHOLESTEROL <130 mg/dL 02/12/2018 5:29 AM [facility] Track [facility] Comment:Non HDL Cholesterol cannot be calculated when the HDL value is suppressed. Blood Venipuncture / Unknown 02/12/2018 4:20 AM CDT 02/12/2018 4:25 AM CDT Narrative [facility] Track [facility] - 02/12/2018 5:29 AM CDT TOTAL CHOLESTEROL ??mg/dL ??Desirable <200 [...] Guidelines Reference Ranges for Lipid Panels (NCEP/AMA) Vlad Covarrubias MD CHEMISTRY ORDERABLES Performing Organization Address City/[facility]/ZIP Co de Phone Number [facility] CLIA# [id number] [address] [place] [address] * (ABNORMAL) POC GLUCOSE (02/12/2018 4:15 AM CDT) GLUCOSE POC 144(H) 74 - 99 mg/dL 02/12/2018 4:32 AM CDT [facility] BLACK JACK DEALER NAME POC GENEVA JASSO 02/12/2018 4:32 AM CDT [facility] Whole blood specimen (specimen) 02/12/2018 4:15 AM CDT 02/12/2018 4:32 AM CDT Vlad Covarrubias MD POINT OF CARE TESTIN G Performing Organization Address City/[facility]/ZIP Co de Phone Number [facility] CLIA# [id number] [address] [place] [address] * (ABNORMAL) POC GLUCOSE (02/12/2018 12:30 AM CDT) GLUCOSE POC 145(H) 74 - 99 mg/dL 02/12/2018 12:51 AM CDT [facility] BLACK JACK DEALER NAME POC GENEVA JASSO 02/12/2018 12:51 AM CDT [facility]OR[facility] SERVICES [facility] Whole blood specimen (specimen) 02/12/2018 12:30 AM CDT 02/12/2018 12:51 AM CDT Vlad Covarrubias MD POINT OF CARE TESTIN G [facility]# [id number] [address] [facility] [address] [place] [address] * (ABNORMAL) TSH (02/11/2018 10:35 PM CDT) [facility] TSH 38.15(H) 0.27 - 4.20 uIU/mL 02/11/2018 11:16 PM CDT [facility] Blood Venipuncture / Unknown 02/11/2018 10:35 PM CDT 02/11/2018 10:39 PM CDT Blake Rudd MD CHEMISTRY ORDERA BLES [facility] Track [facility]# [id number] [address] [place] [address] * (ABNORMAL) POC GLUCOSE (02/11/2018 7:27 PM CDT) Pathologist [facility] GLUCOSE POC 119(H) 74 - 99 mg/dL 02/11/2018 7:40 PM CDT [facility] COMMENT, GLU POC Notified RN/ 02/11/2018 7:40 PM CDT [facility] BLACK JACK DEALER NAME POC DEIDRE HERNANDEZ 02/11/2018 7:40 PM CDT [facility] SERVICES [facility] Whole blood specimen (specimen) 02/11/2018 7:27 PM CDT 02/11/2018 7:40 PM CDT Vlad Covarrubias MD POINT OF CARE TESTIN Maggie [facility]ORY [facility] CLIA# [id number] [address] [place] [address] * (ABNORMAL) POC GLUCOSE (02/11/2018 4:26 PM CDT) GLUCOSE POC 119(H) 74 - 99 mg/dL 02/11/2018 4:38 PM CDT [facility] SERVICES [facility] BLACK JACK DEALER NAME GÓMEZ GALLO 02/11/2018 4:38 PM CDT [facility] Whole blood specimen (specimen) 02/11/2018 4:26 PM CDT 02/11/2018 4:38 PM CDT Vlad Covarrubias MD POINT OF CARE TESTIN Maggie Performing Organization Address [facility]/ZIP Co de Phone Number [facility] CLIA# [id number] [address] [place] [address] * (ABNORMAL) POC GLUCOSE (02/11/2018 2:00 PM CDT) GLUCOSE POC 105(H) 74 - 99 mg/dL 02/11/2018 2:13 PM CDT [facility] SERVICES [facility] BLACK JACK DEALER NAME GÓMEZ GALLO 02/11/2018 2:13 PM CDT [facility] Whole blood specimen (specimen) 02/11/2018 2:00 PM CDT 02/11/2018 2:13 PM CDT Vlad Covarrubias MD POINT OF CARE TESTIN Maggie [facility]ORATORY [facility] CLIA# [id number] [address] [place] [address] * POC GLUCOSE (02/11/2018 12:07 PM CDT) GLUCOSE POC 94 74 - 99 mg/dL 02/11/2018 12:20 PM CDT [facility] LABORATORY SERVICES - [facility] BLACK JACK DEALER NAME GENOVEVA GARCIA 02/11/2018 12:20 PM CDT [facility]ORAT[facility] SERVICES [facility] Whole blood specimen (specimen) 02/11/2018 12:07 PM CDT 02/11/2018 12:20 PM CDT Vlad Covarrubias MD POINT OF CARE TESTIN G [facility]ORATORY [facility] CLIA# [id number] [address] [place] [address] * (ABNORMAL) POC GLUCOSE (02/11/2018 11:45 AM CDT) GLUCOSE POC 100(H) 74 - 99 mg/dL 02/11/2018 11:58 AM CDT [facility] LABORATORY SERVICES - [facility] BLACK JACK DEALER NAME GÓMEZ GALLO 02/11/2018 11:58 AM CDT [facility] LABORATORY SERVICES [facility] Whole blood specimen (specimen) 02/11/2018 11:45 AM CDT 02/11/2018 11:58 AM CDT Vlad Covarrubias MD POINT OF CARE TESTIN G [facility]OR[facility]ORY [facility] CLIA# [id number] [address] [place] [address] * (ABNORMAL) POC GLUCOSE (02/11/2018 11:15 AM CDT) GLUCOSE POC 59(L) 74 - 99 mg/dL 02/11/2018 11:36 AM CDT [facility]AT[facility] SERVICES [facility] COMMENT, GLU POC To be Repeated 02/11/2018 11:36 AM CDT [facility] LABORATORY SERVICES - [facility] BLACK JACK DEALER NAME POC GENOVEVA DELACRUZ 02/11/2018 11:36 AM CDT [facility]ORAT[facility] SERVICES [facility] Whole blood specimen (specimen) 02/11/2018 11:15 AM CDT 02/11/2018 11:36 AM CDT Vlad Covarrubias MD POINT OF CARE TESTIN G [facility]ORY [facility] CLIA# [id number] [address] [place] [address] * POC GLUCOSE (02/11/2018 9:39 AM CDT) GLUCOSE POC 92 74 - 99 mg/dL 02/11/2018 9:53 AM CDT [facility] SERVICES [facility] BLACK JACK DEALER NAME POC GENOVEVA DELACRUZ 02/11/2018 9:53 AM CDT [facility] Whole blood specimen (specimen) 02/11/2018 9:39 AM CDT 02/11/2018 9:53 AM CDT Vlad Covarrubias MD POINT OF CARE TESTIN Maggie Performing Organization Address City/[facility]/ZIP Co de Phone Number [facility]ORY [facility] CLIA# [id number] [address] [place] [address] * POC GLUCOSE (02/11/2018 8:54 AM CDT) GLUCOSE POC 96 74 - 99 mg/dL 02/11/2018 9:14 AM CDT [facility] SERVICES [facility] BLACK JACK DEALER NAME POC GÓMEZ NIELSON 02/11/2018 9:14 AM CDT [facility]ATORY SERVICES [facility] Whole blood specimen (specimen) 02/11/2018 8:54 AM CDT 02/11/2018 9:14 AM CDT Vlad Covarrubias MD POINT OF CARE TESTIN Maggie [facility]ORY [facility] CLIA# [id number] [address] [place] [address] * (ABNORMAL) POC GLUCOSE (02/11/2018 8:11 AM CDT) GLUCOSE POC 113(H) 74 - 99 mg/dL 02/11/2018 8:33 AM CDT [facility] SERVICES [facility] BLACK JACK DEALER NAME POC CONNIE PHILLIPS 02/11/2018 8:33 AM CDT [facility] LABORATORY SERVICES [facility] Whole blood specimen (specimen) 02/11/2018 8:11 AM CDT 02/11/2018 8:33 AM CDT Vlad Covarrubias MD POINT OF CARE TESTJERONIMO Serrano [facility] LABORATORY [facility] CLIA# [id number] [address] [place] [address] * (ABNORMAL) POC GLUCOSE (02/11/2018 7:52 AM CDT) GLUCOSE POC 58(L) 74 - 99 mg/dL 02/11/2018 8:05 AM CDT [facility] SERVICES [facility] COMMENT, GLU POC Repeated Glucose 02/11/2018 8:05 AM CDT [facility] LABORATORY SERVICES [facility] COMMENT 2, GLU POC Notified RN/MD 02/11/2018 8:05 AM CDT [facility] BLACK JACK DEALER NAME POC GÓMEZ NIELSON 02/11/2018 8:05 AM CDT [facility]ORATORY SERVICES [facility] Whole blood specimen (specimen) 02/11/2018 7:52 AM CDT 02/11/2018 8:05 AM CDT Vlad Covarrubias MD POINT OF CARE TESTJERONIMO Serrano [facility] CLIA# [id number] [address] [place] [address] * (ABNORMAL) POC GLUCOSE (02/11/2018 7:34 AM CDT) GLUCOSE POC 70(L) 74 - 99 mg/dL 02/11/2018 7:46 AM CDT [facility] BLACK JACK DEALER NAME POC GÓMEZ NIELSON 02/11/2018 7:46 AM CDT [facility] Whole blood specimen (specimen) 02/11/2018 7:34 AM CDT 02/11/2018 7:46 AM CDT Vlad Covarrubias MD POINT OF CARE TESTIN G [facility] Track [facility] CLIA# [id number] [address] [place] [address] * (ABNORMAL) POC GLUCOSE (02/11/2018 6:24 AM CDT) GLUCOSE POC 106(H) 74 - 99 mg/dL 02/11/2018 6:36 AM CDT [facility] BLACK JACK DEALER NAME POC MARIA VICTORIA AREVALO 02/11/2018 6:36 AM CDT [facility] LABORATORY SERVICES [facility] Whole blood specimen (specimen) 02/11/2018 6:24 AM CDT 02/11/2018 6:36 AM CDT Araceli Santo MD POINT OF CARE TEST ING Performing Organization Address [facility]/ZIP Co de Phone Number [facility] Track [facility] CLIA# [id number] [address] [place] [address] * (ABNORMAL) CBC WITH DIFFERENTIAL (02/11/2018 5:08 AM CDT) WBC 6.5 4.0 - 9.8 K/uL 02/11/2018 5:25 AM CDT [facility] LABORATORY SERVICES [facility] RBC 3.87(L) 3.90 - 4.90 M/uL 02/11/2018 5:25 AM CDT [facility] LABORATORY SERVICES [facility] HEMOGLOBIN 11.7(L) 11.8 - 14.8 g/dL 02/11/2018 5:25 AM CDT [facility] - . [facility] HEMATOCRIT 35.7 35.5 - 44.0 % 02/11/2018 5:25 AM CDT [facility] - [facility] MCV 92.2 82.0 - 99.0 fL 02/11/2018 5:25 AM CDT [facility] LABORATORY SERVICES - [facility] MCH 30.2 27.2 - 32.6 pg 02/11/2018 5:25 AM T [facility] LABORATORY SERVICES - . [facility] MCHC 32.8 31.5 - 35.5 g/dL 02/11/2018 5:25 AM CDT [facility] - [facility] RDW 14.1 11.5 - 14.5 % 02/11/2018 5:25 AM CDT [facility] - [facility] RDW-STDEV 47.4 37.1 - 48.7 fL 02/11/2018 5:25 AM [facility] [facility] LABORATORY SERVICES - . [facility] PLATELETS 207 140 - 350 K/uL 02/11/2018 5:25 AM [employer] [facility] LABORATORY SERVICES - . [facility] MPV 9.2(L) 9.3 - 12.4 fL 02/11/2018 5:25 AM [facility] [facility] LABORATORY SERVICES - [facility] NEUTROPHILS 53 % 02/11/2018 5:25 AM [facility] [facility] LABORATORY SERVICES - [facility] LYMPHOCYTES 40 % 02/11/2018 5:25 AM [facility] [facility] LAB[facility]ATORY SERVICES - [facility] MONOCYTES 5 % 02/11/2018 5:25 AM [facility] LABORATORY SERVICES - [facility] EOSINOPHILS 1 % 02/11/2018 5:25 AM [facility] [facility] LABORATORY SERVICES - [facility] BASOPHILS 0 % 02/11/2018 5:25 AM [facility] LABORATORY SERVICES - [facility] IMMATURE GRANULOCYTES 1 % 02/11/2018 5:25 AM [facility] LAB[facility]ATORY SERVICES - [facility] Comment:IG (Immature Granulo cyte) count includes Metamyelocytes, Myelocytes, and Promyelocytes NEUTROPHIL ABSOLUTE 3.48 1.90 - 7.00 K/uL 02/11/2018 5:25 AM CDT [facility] LABORATORY SERVICES - [facility] LYMPHOCYTE ABSOLUTE 2.60 0.70 - 4.50 K/uL 02/11/2018 5:25 AM CDT [facility] - [facility] MONOCYTE ABSOLUTE 0.32 0.10 - 1.30 K/uL 02/11/2018 5:25 AM CDT [facility]ORY [facility] EOSINOPHIL ABSOLUTE 0.07 0.00 - 0.70 K/uL 02/11/2018 5:25 AM CDT [facility] Track [facility] BASOPHILS ABSOLUTE 0.02 0.00 - 0.20 K/uL 02/11/2018 5:25 AM CDT [facility] Track [facility] IMMATURE GRANULOCYTES ABSOLUTE 0.05(H) 0.00 - 0.03 K/uL 02/11/2018 5:25 AM CDT [facility] Blood Venipuncture / Unknown 02/11/2018 5:08 AM CDT 02/11/2018 5:13 AM CDT Araceli Santo MD HEMATOLOGY ORDERAB LES [facility]# [id number] [address] [facility] [place] [address] * (ABNORMAL) LIPID PANEL (02/11/2018 5:07 AM CDT) [facility] CHOLESTEROL 488(H) <200 mg/dL 02/11/2018 8:58 AM T [facility] Track [facility] TRIGLYCERIDE 2,142(H) <150 mg/dL 02/11/2018 8:58 AM T [facility] Track [facility] HDL 40 - 59 mg/dL 02/11/2018 8:58 AM T [facility] Track [facility] Comment: Measured HDL is not accurate when the Triglyceride value exceeds 1200. LDL CALCULATED <100 mg/dL 02/11/2018 8:58 AM T [facility] Track [facility] Comment:Calculated LDL is no t accurate when the Triglyceride value exceeds 400. NON-HDL CHOLESTEROL <130 mg/dL 02/11/2018 8:58 AM T [facility] Track [facility] Comment:Non HDL Cholesterol cannot be calculated when the HDL value is suppressed. Blood Venipuncture / Unknown 02/11/2018 5:07 AM CDT 02/11/2018 5:13 AM CDT Narrative [facility] LABORATORY SERVICES - [facility] - 02/11/2018 8:58 AM CDT TOTAL CHOLESTEROL ??mg/dL ??Desirable <200 [...] Guidelines Reference Ranges for Lipid Panels (NCEP/AMA) Vlad Covarrubias MD CHEMISTRY ORDERABLES [facility] LABORATORY SERVICES [facility] CLLA# [id number] [address] [facility] [place] [address] * (ABNORMAL) BASIC METABOLIC PANEL (02/11/2018 5:07 AM CDT) SODIUM 138 136 - 145 mmol/L 02/11/2018 5:45 AM CDT [facility] - . [facility] POTASSIUM 3.1(L) 3.5 - 5.0 mmol/L 02/11/2018 5:45 AM CDT [facility] - [facility] CHLORIDE 98 98 - 107 mmol/L 02/11/2018 5:45 AM CDT [facility] - [facility] CO2 26 22 - 29 mmol/L 02/11/2018 5:45 AM CDT [facility] - [facility] CALCIUM 8.5(L) 8.6 - 10.2 mg/dL 02/11/2018 5:45 AM CDT [facility] - [facility] BUN 8 6 - 20 mg/dL 02/11/2018 5:45 AM CDT [facility] - [facility] CREATININE 0.56 0.51 - 0.95 mg/dL 02/11/2018 5:45 AM CDT [facility] - [facility] GLUCOSE 84 74 - 99 mg/dL 02/11/2018 5:45 AM CDT [facility] Track [facility] GFR >60 >=60 mL/min/1.7 3 sq meter 02/11/2018 5:45 AM CDT [facility] Track [facility] Comment: eGFR has not been [...] GFR, >60 >=60 mL/min/1.7 3 sq meter 02/11/2018 5:45 AM CDT [facility] Track [facility] ANION GAP 14 8 - 16 mmol/L 02/11/2018 5:45 AM CDT [facility] Track [facility] Blood Venipuncture / Unknown 02/11/2018 5:07 AM CDT 02/11/2018 5:13 AM CDT Araceli Santo MD CHEMISTRY ORDERABL ES Performing Organization Address City/[facility] Co de Phone Number [facility] Track [facility]# [id number] [address] [facility] [place] [address] * POC GLUCOSE (02/11/2018 5:03 AM CDT) GLUCOSE POC 77 74 - 99 mg/dL 02/11/2018 6:00 AM CDT [facility] Track [facility] BLACK JACK DEALER NAME POC JUANY DONNA 02/11/2018 6:00 AM CDT [facility] Track [facility] Whole blood specimen (specimen) 02/11/2018 5:03 AM CDT 02/11/2018 6:00 AM CDT Araceli Santo MD POINT OF CARE TEST ING [facility] LABORATORY SERVICES [facility] CLIA# [id number] [address] [place] [address] * (ABNORMAL) POC GLUCOSE (02/11/2018 4:22 AM CDT) GLUCOSE POC 107(H) 74 - 99 mg/dL 02/11/2018 4:34 AM CDT [facility] LABORATORY SERVICES [facility] BLACK JACK DEALER NAME POC MARIA VICTORIA AREVALO 02/11/2018 4:34 AM CDT [facility] LABORATORY SERVICES [facility] Whole blood specimen (specimen) 02/11/2018 4:22 AM CDT 02/11/2018 4:34 AM CDT Araceli Santo MD POINT OF CARE TEST ING Performing Organization Address City/[facility]/ZIP Co de Phone Number [facility] LABORATORY [facility] CLIA# [id number] [address] [place] [address] * POC GLUCOSE (02/11/2018 4:04 AM CDT) GLUCOSE POC 93 74 - 99 mg/dL 02/11/2018 4:16 AM CDT [facility] LABORATORY SERVICES [facility] COMMENT, GLU POC Notified RN/MD 02/11/2018 4:16 AM CDT [facility] LABORATORY [facility] BLACK JACK DEALER NAME POC DONNA HARRINGTON 02/11/2018 4:16 AM CDT [facility] LABORATORY SERVICES [facility] Whole blood specimen (specimen) 02/11/2018 4:04 AM CDT 02/11/2018 4:16 AM CDT Araceli Santo MD POINT OF CARE TEST ING [facility] LABORATORY [facility] CLIA# [id number] [address] [place] [address] * POC GLUCOSE (02/11/2018 3:12 AM CDT) GLUCOSE POC 76 74 - 99 mg/dL 02/11/2018 3:28 AM CDT [facility] LABORATORY SERVICES [facility] COMMENT, GLU POC Notified RN/MD 02/11/2018 3:28 AM CDT [facility] - [facility] COMMENT 2, GLU POC Repeated Glucose 02/11/2018 3:28 AM CDT [facility] BLACK JACK DEALER NAME POC DONNA HARRINGTON 02/11/2018 3:28 AM CDT [facility] Whole blood specimen (specimen) 02/11/2018 3:12 AM CDT 02/11/2018 3:28 AM CDT Araceli Santo MD POINT OF CARE TEST ING Performing Organization Address [facility] Co de Phone Number [facility] CLIA# [id number] [address] [place] [address] * (ABNORMAL) POC GLUCOSE (02/11/2018 2:02 AM CDT) GLUCOSE POC 117(H) 74 - 99 mg/dL 02/11/2018 2:13 AM CDT [facility] BLACK JACK DEALER NAME POC MARIA VICTORIA AREVALO 02/11/2018 2:13 AM CDT [facility] Whole blood specimen (specimen) 02/11/2018 2:02 AM CDT 02/11/2018 2:13 AM CDT Araceli Santo MD POINT OF CARE TEST ING Performing Organization Address [facility]/ZIP Co de Phone Number [facility] CLIA# [id number] [address] [place] [address] * (ABNORMAL) POC GLUCOSE (02/11/2018 12:40 AM CDT) GLUCOSE POC 151(H) 74 - 99 mg/dL 02/11/2018 1:33 AM CDT [facility] BLACK JACK DEALER NAME POC MARIA VICTORIA AREVALO 02/11/2018 1:33 AM CDT [facility] Track [facility] Whole blood specimen (specimen) 02/11/2018 12:40 AM CDT 02/11/2018 1:33 AM CDT Araceli Santo MD POINT OF CARE TEST ING [facility] Track [facility] CLIA# [id number] [address] [facility] [address] [address] * (ABNORMAL) LIPID PANEL (02/10/2018 11:53 PM CDT) CHOLESTEROL 474(H) <200 mg/dL 02/11/2018 1:01 AM T [facility] TRIGLYCERIDE 2,540(H) <150 mg/dL 02/11/2018 1:01 AM T [facility] Track [facility] HDL 40 - 59 mg/dL 02/11/2018 1:01 AM T [facility] Track [facility] Comment: Measured HDL is not accurate when the Triglyceride value exceeds 1200. LDL CALCULATED <100 mg/dL 02/11/2018 1:01 AM T [facility] Track [facility] Comment:Calculated LDL is no t accurate when the Triglyceride value exceeds 400. NON-HDL CHOLESTEROL <130 mg/dL 02/11/2018 1:01 AM T [facility] Track [facility] Comment:Non HDL Cholesterol cannot be calculated when the HDL value is suppressed. Blood Venipuncture / Unknown 02/10/2018 11:53 PM CDT 02/10/2018 11:56 PM CDT Narrative [facility] Track [facility] - 02/11/2018 1:01 AM CDT TOTAL CHOLESTEROL ??mg/dL ??Desirable <200 [...] Guidelines Reference Ranges for Lipid Panels (NCEP/AMA) Araceli Santo MD CHEMISTRY ORDERABL ES [facility]# [id number] [facility] [place] [id number] documented in this encounter Visit Diagnoses Diagnosis Pancreatitis, recurrent Chronic pancreatitis Hypertriglyceridemia Pure hyperglyceridemia Epigastric abdominal pain Abdominal pain, epigastric Depression with anxiety Dysthymic disorder Type 2 diabetes mellitus without complication, with long-term current use of insulin Acquired hypothyroidism Unspecified hypothyroidism documented in this encounter Administered Medications Inactive Administered Medications - up to 3 most recent administrations Medication Order MAR Action Action Date Dose Rate Site acetaminophen (TYLENOL) tablet 650 mg 650 mg, Oral, EVERY 4 HOURS PRN, Starting on Sat02/11/18 at 2257, Until Sat02/18/18 at 1916, Pain, Temperature, Other (See Comment), Pain: mild, Temp: >100.5, Headaches, Routine Given 02/12/2018 6:31 AM CDT 650 mg Given 02/11/2018 11:01 PM CDT 650 mg atorvastatin (LIPITOR) tablet 80 mg 80 mg, Oral, DAILY AT BEDTIME, First dose on Sat02/11/18 at 2100, Until Discontinued, Routine Given 02/17/2018 8:45 PM CDT 80 mg Given 02/16/2018 8:27 PM CDT 80 mg Given 02/15/2018 10:03 PM CDT 80 mg citalopram (CeleXA) tablet 40 mg 40 mg, Oral, DAILY AT BEDTIME, First dose on Sat02/14/18 at 2100, Until Discontinued, Routine Given 02/17/2018 8:45 PM CDT 40 mg Given 02/16/2018 8:27 PM CDT 40 mg Given 02/15/2018 10:04 PM CDT 40 mg dextrose 5% - sodium chloride 0.9% infusion IV, at 40 mL/hr, SEE ADMIN INSTRUCTIONS, Starting on Sat02/10/18 at 2348, Until Sat02/11/18 at 0319, Routine New Bag 02/11/2018 1:05 AM CDT 40 mL/hr 40 mL /hr dextrose 5% - sodium chloride 0.9% infusion IV, at 40 mL/hr, SEE ADMIN INSTRUCTIONS, Starting on Sat02/11/18 at 1158, Until Sat02/18/18 at 1916, Routine dextrose 5% infusion IV, at 125 mL/hr, CONTINUOUS, Starting on Sat02/11/18 at 0330, Until Sat02/11/18 at 1154, Routine Rate Change 02/11/2018 7:45 AM CDT 125 mL/hr New Bag 02/11/2018 3:48 AM CDT 75 mL/hr dextrose 50% (D50) syringe 12.5 Gram 12.5 Gram, IV, SEE ADMIN INSTRUCTIONS, Starting on Sat02/10/18 at 2348, Until Sat02/11/18 at 1154, Routine Given 02/11/2018 11:20 AM CDT 12.5 Grams Given 02/11/2018 7:55 AM CDT 12.5 Grams dextrose 50% (D50) syringe 12.5 Gram 12.5 Gram, IV, SEE ADMIN INSTRUCTIONS, Starting on Sat02/11/18 at 1158, Until Sat02/18/18 at 1916, Routine dextrose 50% (D50) syringe 25 Gram 25 Gram, IV, SEE ADMIN INSTRUCTIONS, Starting on Sat02/11/18 at 1158, Until Sat02/18/18 at 1916, Routine diphenhydrAMINE (BENADRYL) injection 25 mg 25 mg, IV, ONE TIME ONLY, 1 dose, On Sat02/11/18 at 0645, Routine Given 02/11/2018 7:00 AM CDT 25 mg diphenhydrAMINE (BENADRYL) tablet 25 mg 25 mg, Oral, EVERY 6 HOURS PRN, Starting on Sat02/11/18 at 2021, Until Katie 02/13/18 at 0906, Itching, Routine Given 02/13/2018 8:51 AM CDT 25 mg Given 02/12/2018 9:38 AM CDT 25 mg Given 02/11/2018 8:49 PM CDT 25 mg diphenhydrAMINE (BENADRYL) tablet 50 mg 50 mg, Oral, EVERY 6 HOURS PRN, Starting on Katie 02/13/18 at 0906, Until Sat02/18/18 at 1916, Itching, Routine Given 02/15/2018 6:52 PM CDT 50 mg Given 02/15/2018 10:36 AM CDT 50 mg Given 02/14/2018 8:56 PM CDT 50 mg docusate sodium (COLACE) capsule 100 mg 100 mg, Oral, TWO TIMES DAILY, First dose on Sat02/16/18 at 2130, Until Discontinued, Routine Given 02/17/2018 8:59 AM CDT 100 mg Given 02/16/2018 11:16 PM CDT 100 mg enoxaparin (LOVENOX) injection 40 mg 40 mg, subCUT, EVERY 24 HOURS, First dose on Sat02/11/18 at 1000, Until Discontinued, Routine Given 02/17/2018 11:28 AM CDT 40 mg Abdo minh Tissue Given 02/16/2018 9:28 AM CDT 40 mg Ab domen, Right Lower Quadrant Given 02/15/2018 9:44 AM CDT 40 mg Ab domen, Left Lower Quadrant fenofibrate (LOFIBRA) tablet 160 mg 160 mg, Oral, DAILY, First dose on Sat02/11/18 at 1400, Until Discontinued, Routine Given 02/18/2018 8:2 1 AM CDT 160 mg Given 02/17/2018 8:59 AM CDT 160 mg Given 02/16/2018 9:27 AM CDT 160 mg Fish Oil-[place]-3 Fatty Acids 360-1,200 mg capsule 2 Capsule 2 Capsule, Oral, TWO TIMES DAILY, First dose (after last modification) on Sat02/11/18 at 1400, Until Discontinued, Routine Given 02/18/2018 11:04 AM CDT 2 Capsules Given 02/17/2018 8:46 PM CDT 2 Capsules Given 02/17/2018 1:49 PM CDT 2 Capsules glucagon HCl 1 mg injection 1 mg 1 mg, IM, SEE ADMIN INSTRUCTIONS, Starting on Sat02/11/18 at 1158, Until Sat02/18/18 at 1916, Routine HYDROcodone-acetaminophen (NORCO) 5-325 mg per tablet 1 Tablet 1 Tablet, Oral, EVERY 4 HOURS PRN, Starting on Sat02/11/18 at 1157, Until Sat02/18/18 at 1916, Pain (See admin instructions), Routine Given 02/18/2018 11:04 AM CDT 1 Tablet Given 02/18/2018 12:37 AM CDT 1 Tablet Given 02/17/2018 8:46 PM CDT 1 Tablet HYDROmorphone (DILAUDID) 2 mg/mL injection 0.3 mg 0.3 mg, IV, EVERY 2 HOURS PRN, Starting on Sat02/10/18 at 2322, Until Sat02/11/18 at 1158, Pain (See admin instructions), Routine Given 02/11/2018 9:03 AM CDT 0.3 mg Given 02/11/2018 5:30 AM CDT 0.3 mg Given 02/11/2018 3:25 AM CDT 0.3 mg HYDROmorphone (DILAUDID) 2 mg/mL injection 0.3 mg 0.3 mg, IV, EVERY 4 HOURS PRN, Starting on Sat02/11/18 at 1200, Until Sat02/14/18 at 0741, Pain (See admin instructions), Routine Given 02/14/2018 4:43 AM CDT 0.3 mg Given 02/13/2018 10:48 PM CDT 0.3 mg Given 02/13/2018 6:14 PM CDT 0.3 mg HYDROmorphone (DILAUDID) 2 mg/mL injection 0.3 mg 0.3 mg, IV, EVERY 6 HOURS PRN, Starting on Sat02/14/18 at 0745, Until Sat02/16/18 at 1608, Pain (See admin instructions), Routine Given 02/16/2018 12:5 6 PM CDT 0.3 mg Given 02/16/2018 6:07 AM CDT 0.3 mg Given 02/16/2018 12:27 AM CDT 0.3 mg HYDROmorphone (DILAUDID) 2 mg/mL injection 0.3 mg 0.3 mg, IV, EVERY 12 HOURS PRN, Starting on Sat02/16/18 at 1615, Until Sat02/18/18 at 1916, Pain (See admin instructions), Routine Given 02/18/2018 4:18 AM CDT 0.3 mg Given 02/17/2018 4:36 AM CDT 0.3 mg hydrOXYzine HCl (ATARAX) tablet 25 mg 25 mg, Oral, ONE TIME ONLY, 1 dose, On 02/15/18 at 0030, Routine Given 02/15/2018 12:55 AM CDT 25 mg insulin lispro (HumaLOG) variable dose injection subCUT, EVERY 4 HOURS, First dose on Sat02/11/18 at 1215, Until Discontinued, Routine Given 02/13/2018 8:05 AM CDT 1 Units Arm, Right Upper Given 02/12/2018 9:13 PM CDT 1 Units Ab domen, Left Lower Quadrant Given 02/12/2018 8:19 AM CDT 1 Units Ar m, Right Upper insulin lispro (HumaLOG) variable dose injection subCUT, THREE TIMES DAILY WITH MEALS, First dose on Sat02/18/18 at 0700, Until Discontinued, Routine Given 02/18/2018 11:05 AM CDT 1 Units Arm, Left Upper insulin lispro (HumaLOG) variable dose injection subCUT, DAILY AT BEDTIME, First dose on Sat02/17/18 at 2245, Until Discontinued, Routine Given 02/18/2018 12:33 AM CDT 1 Units Arm, Left insulin regular (HUMULIN R,NOVOLIN R) 100 Units in sodium chloride 0.9% 100 mL infusion 5 Units/hr (5 mL/hr), IV, CONTINUOUS, Starting on Sat02/11/18 at 0000, Until Sat02/11/18 at 1154 Restarted 02/11/2018 9:07 AM CDT 5 Units/hr 5 mL/hr Restarted 02/11/2018 6:31 AM CDT 10 Units/hr 10 mL/hr New Bag 02/11/2018 1:10 AM CDT 10 Units/hr 10 mL/hr levothyroxine (SYNTHROID) tablet 200 mcg 200 mcg, Oral, DAILY EARLY, First dose on Sat02/11/18 at 1400, Until Discontinued, Routine Given 02/18/2018 4:18 AM CDT 200 mcg Given 02/17/2018 6:00 AM CDT 200 mcg Given 02/16/2018 6:06 AM CDT 200 mcg LORazepam (ATIVAN) 2 mg/mL injection 0.5 mg 0.5 mg, IV, EVERY 6 HOURS PRN, Starting on Sat02/11/18 at 0003, Until Sat02/18/18 at 1916, Anxiety, Routine Given 02/18/2018 8:27 AM CDT 0.5 mg Given 02/17/2018 10:33 PM CDT 0.5 mg Given 02/17/2018 3:02 PM CDT 0.5 mg niacin (NIACOR) tablet 500 mg 500 mg, Oral, TWO TIMES DAILY, First dose on Sat02/11/18 at 1400, Until Discontinued, Routine Given 02/15/2018 9:43 AM CDT 500 mg Given 02/14/2018 8:17 PM CDT 500 mg Given 02/14/2018 8:52 AM CDT 500 mg niacin (NIASPAN ER) SR 24 hour tablet 500 mg 500 mg, Oral, TWO TIMES DAILY WITH MEALS, First dose on 02/15/18 at 1700, Until Discontinued, Routine Given 02/18/2018 8:21 AM CDT 500 mg Given 02/17/2018 6:53 PM CDT 500 mg Given 02/17/2018 8:59 AM CDT 500 mg ondansetron (ZOFRAN) 4 mg/2 mL injection 4 mg 4 mg, IV, EVERY 6 HOURS PRN, Starting on Sat02/10/18 at 2322, Until Sat02/18/18 at 1916, Nausea/Emesis, Routine Given 02/18/2018 11:04 AM CDT 4 mg Given 02/17/2018 8:50 PM CDT 4 mg Given 02/17/2018 11:33 AM CDT 4 mg potassium chloride (KLOR-CON) SR tablet 20 mEq 20 mEq, Oral, ONE TIME ONLY, 1 dose, On Sat02/17/18 at 0800, Routine Given 02/17/2018 8:58 AM CDT 20 mEq potassium chloride 40 mEq in sodium chloride 0.9% 250 mL IVPB 40 mEq, IV, ONE TIME ONLY, 1 dose, On Sat02/11/18 at 0715, at 67.5 mL/hr, Administer over 4 Hours, Routine New Bag 02/11/2018 7:37 AM CDT 40 mEq 67.5 mL/hr prochlorperazine (COMPAZINE) injection 5 mg 5 mg, IV, EVERY 6 HOURS PRN, Starting on 02/16/18 at 2122, Until Sat02/18/18 at 1916, Nausea, Routine Given 02/16/2018 11:16 PM CDT 5 mg sennosides (SENOKOT) tablet 8.6 mg 8.6 mg, Oral, DAILY, First dose on Sat02/17/18 at 0900, Until Discontinued, Routine sodium chloride 0.9% infusion IV, at 40 mL/hr, CONTINUOUS, Starting on Sat02/11/18 at 1200, Until Sat02/18/18 at 1916, Routine Rate Change 02/17/2018 1:56 PM CDT 40 mL/hr Bag Switched 02/16/2018 8:31 PM CDT 100 mL/hr Bag Switched 02/16/2018 1:03 PM CDT 100 mL/hr traZODone (DESYREL) tablet 50 mg 50 mg, Oral, DAILY AT BEDTIME, First dose on Sat02/14/18 at 2100, Until Discontinued, Routine Given 02/17/2018 8:45 PM CDT 50 mg Given 02/16/2018 8:27 PM CDT 50 mg Given 02/15/2018 10:04 PM CDT 50 mg documented in this encounter Active and Recently Administered Medications Times are shown in CDT. Scheduled Medication Order 02/16/2018 02/17/2018 02/18/2018 atorvastatin (LIPITOR) tablet 80 mg 80 mg, Oral, DAILY AT BEDTIME, First dose on Sat02/11/18 at 2100, Until Discontinued, Routine 2026 (Given - Provider: Juanita Ramirez RN) 2044 (Given - Provider: Juanita Ramirez RN) citalopram (CeleXA) tablet 40 mg 40 mg, Oral, DAILY AT BEDTIME, First dose on Sat02/14/18 at 2100, Until Discontinued, Routine 2026 (Given - Provider: Juanita Ramirez RN) 2044 (Given - Provider: Juanita Ramirez RN) dextrose 5% - sodium chloride 0.9% infusion IV, at 40 mL/hr, SEE ADMIN INSTRUCTIONS, Starting on Sat02/11/18 at 1158, Until Sat02/18/18 at 1916, Routine dextrose 50% (D50) syringe 12.5 Gram 12.5 Gram, IV, SEE ADMIN INSTRUCTIONS, Starting on Sat02/11/18 at 1158, Until Sat02/18/18 at 1916, Routine dextrose 50% (D50) syringe 25 Gram 25 Gram, IV, SEE ADMIN INSTRUCTIONS, Starting on Sat02/11/18 at 1158, Until Sat02/18/18 at 1916, Routine docusate sodium (COLACE) capsule 100 mg 100 mg, Oral, TWO TIMES DAILY, First dose on Sat02/16/18 at 2130, Until Discontinued, Routine 2316 (Given - Provider: Juanita Ramirez RN) 0859 (Given - Provider: BLAISE Walters)204 (Refused - Provider: Juanita Ramirez RN - Comment: loose bm) 0821 (Not Given - Provider: BLAISE Walters - Reason: Clarify-Other (Comment)) enoxaparin (LOVENOX) injection 40 mg 40 mg, subCUT, EVERY 24 HOURS, First dose on Sat02/11/18 at 1000, Until Discontinued, Routine 0928 (Given - Provider: Mike Spaulding RN) 1128 (Given - Provider: BLAISE Walters) 1000 (Refused - Provider: BLAISE Walters) fenofibrate (LOFIBRA) tablet 160 mg 160 mg, Oral, DAILY, First dose on Sat02/11/18 at 1400, Until Discontinued, Routine 0927 (Given - Provider: Mike Spaulding RN) 0859 (Given - Provider: BLAISE Walters) 0821 (Given - Provider: BLAISE Walters) Fish Oil-[place]-3 Fatty Acids 360-1,200 mg capsule 2 Capsule 2 Capsule, Oral, TWO TIMES DAILY, First dose (after last modification) on Sat02/11/18 at 1400, Until Discontinued, Routine 0928 (Given - Provider: Mike Spaulding RN)211 (Given - Provider: Juanita Ramirez RN) 1349 (Given - Provider: BLAISE Walters)2046 (Given - Provider: Juanita Ramirez RN) 1104 (Given - Provider: BLAISE Walters) glucagon HCl 1 mg injection 1 mg 1 mg, IM, SEE ADMIN INSTRUCTIONS, Starting on Sat02/11/18 at 1158, Until Sat02/18/18 at 1916, Routine insulin lispro (HumaLOG) variable dose injection subCUT, THREE TIMES DAILY WITH MEALS, First dose on Sat02/18/18 at 0700, Until Discontinued, Routine 1105 (Given - Provider: BLAISE Walters - Comment: BS 142)1200 (Due)1700 (Due) insulin lispro (HumaLOG) variable dose injection subCUT, DAILY AT BEDTIME, First dose on Sat02/17/18 at 2245, Until Discontinued, Routine 0033 (Given - Provider: Juanita Ramirez RN - Comment: BS 163) levothyroxine (SYNTHROID) tablet 200 mcg 200 mcg, Oral, DAILY EARLY, First dose on Sat02/11/18 at 1400, Until Discontinued, Routine 0606 (Given - Provider: Danisha Bell RN) 0600 (Given - Provider: Juanita Ramirez, RN - Comment: computer down in room) 0418 (Given - Provider: Juanita Ramirez RN) naloxone (NARCAN) 0.4 mg/mL injection 0.1 mg 0.1 mg, IV, SEE ADMIN INSTRUCTIONS, Starting on Sat02/10/18 at 2348, Until Sat02/18/18 at 1916, Routine niacin (NIASPAN ER) SR 24 hour tablet 500 mg 500 mg, Oral, TWO TIMES DAILY WITH MEALS, First dose on Sat02/15/18 at 1700, Until Discontinued, Routine 0926 (Given - Provider: Mike Spaulding RN)1624 (Given - Provider: Mike Spaulding RN) 0859 (Given - Provider: BLAISE Walters)1853 (Given - Provider: Landry. Jenny Purdy RN) 0821 (Given - Provider: BLAISE Walters)1700 (Due) potassium chloride (KLOR-CON) SR tablet 20 mEq (COMPLETED) 20 mEq, Oral, ONE TIME ONLY, 1 dose, On Sat02/17/18 at 0800, Routine 0858 (Given - Provider: BLAISE Walters) sennosides (SENOKOT) tablet 8.6 mg 8.6 mg, Oral, DAILY, First dose on Sat02/17/18 at 0900, Until Discontinued, Routine 0859 (Refused - Provider: BLAISE Walters) 0821 (Not Given - Provider: BLAISE Walters - Reason: Clarify-Other (Comment)) traZODone (DESYREL) tablet 50 mg 50 mg, Oral, DAILY AT BEDTIME, First dose on Sat02/14/18 at 2100, Until Discontinued, Routine 2026 (Given - Provider: Juanita Ramirez RN) 2044 (Given - Provider: Juanita Ramirez RN) Continuous Medication Order 02/16/2018 02/17/2018 02/18/2018 sodium chloride 0.9% infusion IV, at 40 mL/hr, CONTINUOUS, Starting on Sat02/11/18 at 1200, Until Sat02/18/18 at 1916, Routine 0608 (New Bag - Provider: Danisha Bell RN)1303 (Bag Switched - Provider: Mike Spaulding RN - Comment: new tubine)2030 (Bag Switched - Provider: Juanita Ramirez RN) 1356 (Rate Change - Provider: BLAISE Walters) PRN Medication Order 02/16/2018 02/17/2018 02/18/2018 acetaminophen (TYLENOL) tablet 650 mg 650 mg, Oral, EVERY 4 HOURS PRN, Starting on Sat02/11/18 at 2257, Until Sat02/18/18 at 1916, Pain, Temperature, Other (See Comment), Pain: mild, Temp: >100.5, Headaches, Routine diphenhydrAMINE (BENADRYL) tablet 50 mg 50 mg, Oral, EVERY 6 HOURS PRN, Starting on Sat02/13/18 at 0906, Until Sat02/18/18 at 1916, Itching, Routine HYDROcodone-acetaminop hen (NORCO) 5-325 mg per tablet 1 Tablet 1 Tablet, Oral, EVERY 4 HOURS PRN, Starting on Sat02/11/18 at 1157, Until Sat02/18/18 at 1916, Pain (See admin instructions), Routine 09 (Given - Provider: Mike Spaulding RN)163 (Given - Provider: Mike Spaulding RN)2030 (Given - Provider: Juanita Ramirez RN) 1130 (Given - Provider: BLAISE Walters)161 (Given - Provider: BLAISE Walters)2045 (Given - Provider: Juanita Ramirez RN) 0037 (Given - Provider: Juanita Ramirez RN)1104 (Given - Provider: BLAISE Walters) HYDROmorphone (DILAUDID) 2 mg/mL injection 0.3 mg (CANCELED) 0.3 mg, IV, EVERY 6 HOURS PRN, Starting on Sat02/14/18 at 0745, Until 02/16/18 at 1608, Pain (See admin instructions), Routine 0027 (Given - Provider: Danisha Bell RN)0607 (Given - Provider: Danisha Bell RN)1256 (Given - Provider: Mike Spaulding RN) HYDROmorphone (DILAUDID) 2 mg/mL injection 0.3 mg 0.3 mg, IV, EVERY 12 HOURS PRN, Starting on Sat02/16/18 at 1615, Until Sat02/18/18 at 1916, Pain (See admin instructions), Routine 0436 (Given - Provider: Juanita Ramirez RN - Comment: computer down) 0418 (Given - Provider: Juanita Ramirez RN) LORazepam (ATIVAN) 2 mg/mL injection 0.5 mg 0.5 mg, IV, EVERY 6 HOURS PRN, Starting on Sat02/11/18 at 0003, Until Sat02/18/18 at 1916, Anxiety, Routine 0930 (Given - Provider: Mike Spaulding RN)1639 (Given - Provider: Mike Spaulding RN) 0906 (Given - Provider: BLAISE Walters)1502 (Given - Provider: BLAISE Walters)2233 (Given - Provider: Juanita Ramirez RN) 0827 (Given - Provider: BLAISE Walters) ondansetron (ZOFRAN) 4 mg/2 mL injection 4 mg 4 mg, IV, EVERY 6 HOURS PRN, Starting on Sat02/10/18 at 2322, Until Sat02/18/18 at 1916, Nausea/Emesis, Routine 0028 (Given - Provider: Danisha Bell RN)1258 (Given - Provider: Mike Spaulding RN)1922 (Given - Provider: Mike Spaulding RN) 1133 (Given - Provider: BLAISE Walters)2049 (Given - Provider: Juanita Ramirez RN) 110 (Given - Provider: BLAISE Walters) prochlorperazine (COMPAZINE) injection 5 mg 5 mg, IV, EVERY 6 HOURS PRN, Starting on 02/16/18 at 2122, Until Tu02/18/18 at 1916, Nausea, Routine 2316 (Given - Provider: Juanita Ramirez RN) documented in this encounter Care Teams Mechanical Planner Relationship Specialty Start Date End Date Guerrero Middleton PA-C PCP - General Physician Mold Carrier 02/13/18 documented as of this encounter
--- OUTSIDE RECORDS SUMMARY | 2024-05-03 20:47 | XMS_ITS | Encounter Summary ---
Author Organization [facility] Address [address] [place] [address] Care Team Providers Care Wrapping Machine Tender Name Role Phone Unavailable Primary Care Provider Unavailabl e Reason for Visit * Reason Comments Follow Up F/U. Refills needed depending on labs 90 day supply please. Encounter Details Date Type Department Care Team (Late st Contact Info) Description 08/14/2011 3:30 PM CDT Office Visit [facility] [email or web address] [place] [address] Prudence Gates MD [address] [facility] [address] [place] [address] Familial combined hyperlipidemia; Family history of cardiovascular disease; History of gestational diabetes; Metabolic syndrome Social History Tobacco Use Types [...] Reading Time Taken Comments Blood Pressure 106/72 08/14/2011 3:14 PM CDT Pulse 76 08/14/2011 3:14 PM CDT Temperature - - Respiratory Rate - - Oxygen Saturation - - Inhaled Oxygen Concentration - - Weight 85.3 kg (188 lb) 08/14/2011 3:14 PM CDT Height 162.6 cm (5' 4 ) 08/14/2011 3:14 PM CDT Body Mass Index 32.27 08/14/2011 3:14 PM CDT documented in this encounter Progress Notes * Prudence Gates MD - 08/14/2011 3:31 PM CDT The patient came for follow up of PCOS, metabolic syndrome, prediabetes and significant combined hyperlipidemia. She is trying very hard to loose weight and she accomplished that and she is eating healthy and exercising 1 hour a day. Casandra was diagnosed with PCOS. During her third she had gestational diabetes. She complains of headaches. He denies having any acne She did have a partial hysterectomy in 2006 She is on metformin She eats healthy because her has DM. She has a strong family history of DM and cardiovascular disease. Review of Systems - General ROS: negative [...] PE:The patient is alert oriented x3 BP 106/72 Pulse 76 Ht 5' 4 (1.626 m) Wt 188 lb (85.276 kg) BMI 32.27 kg/m2 Neck is supple, there is no thyroid enlargement. There are no enlarged Lymph nodes CV: S1S2 normal in rhythm and rate Resp: CTA bilaterally Abd: soft, non tender, no organomegaly Ext: No edema Labs Lab Results Component Value Date TSH 0.73 08/10/2011 ASSESSMENT: Encounter Diagnoses Name Primary? Familial combined hyperlipidemia ??? Family history of cardiovascular disease ??? History of gestational diabetes ??? Metabolic syndrome PLAN: Orders Placed This Encounter ??? LIPID PANEL in 6 weeks. ??? HEPATIC FUNCTION PANEL ??? CREATININE ??? rosuvastatin (CRESTOR) 5 mg Oral tablet (mechanism of action and side effects discussed) ??? spironolactone (ALDACTONE) 100 mg Oral tablet (mechanism of action and side effects discussed) ??? SYNTHROID 112 mcg Oral tablet ??? metFORMIN (GLUCOPHAGE) 500 mg Oral tablet ??? fenofibrate 160 mg Oral Tab Continue 1 hour of exercise per day as she is doing Labs reviewed as well as targets. * Nahed France - 08/14/2011 3:15 PM CDT Pt here for Follow Up. Recent labs. See lab tab for results. Pt feels better. documented in this encounter Plan of Treatment Upcoming Encounters Date Type Department Care Team (Late st Contact Info) Description 09/14/2024 3:00 PM CDT Office Visit [facility] [id number] [place] [address] Marlys Mayer MD [address] [place] [address] documented as of this encounter Visit Diagnoses Diagnosis Familial combined hyperlipidemia Mixed hyperlipidemia Family history of cardiovascular disease Family history of other cardiovascular diseases History of gestational diabetes Personal history of gestational diabetes Metabolic syndrome Dysmetabolic Syndrome X documented in this encounter
--- OUTSIDE RECORDS SUMMARY | 2024-05-03 20:47 | XMS_ITS | Encounter Summary ---
Author Organization [facility] Address [address] [place] [address] Care Team Providers Care Regional Wildlife Agent Name Role Phone Guerrero Middleton PA-C Primary Care Provide r Encounter Details Date Type Department Care Team ([facility] Contact Info) Description 02/20/2018 Orders Only [facility] [place] [id number] [place] [phone] Marlys Mayer MD [address] [place], [place] [id number] Mixed hyperlipidemia (Primary Dx) Social History Tobacco [...] [facility] - [facility] [address] [place] [address] Marlys Mayer MD [address] [place], [place] [phone] documented as of this encounter Visit Diagnoses Diagnosis Mixed hyperlipidemia- Primary documented in this encounter Care Teams Regional Wildlife Agent Relationship Specialty Start Date End Date Guerrero Middleton PA-C PCP - General Physician Internal Medicine Veterinary Technician 02/13/18 documented as of this encounter
--- OUTSIDE RECORDS SUMMARY | 2024-05-03 20:47 | XMS_ITS | Encounter Summary ---
Author Organization [facility] Address [address] [place] [address] Care Team Providers Care Jail Keeper Name Role Phone Nomfc, External Provider Primary Care Provider U navailable Reason for Visit * Auth/Cert Specialty Diagnoses / Procedures Referred By Tequila t Referred To Contact Multi Specialty Diagnoses Hypertriglyceridemia [facility] Surgical [address] [place] [address] Referral ID Status Reason Start Date Expiration Date Visits Re quested Visits Authorized [id number] 1 1 Encounter Details Date Type Department Care Team (Latest Contact Info) Description 12/04/2017 5:42 PM CDT - 12/10/2017 1:25 PM CDT Hospital Encounter [facility] Medicine [address] [place] [address] Puja Pagan MD [address] [address] Uzma Yusuf MD NO ADDRESS ON FILE Stephanie Babin MD [address] [place] [address] Odette Che MD [id number] Chylomicronemia syndrome Discharge Disposition: Home or [...] Sign Reading Time Taken Comments Blood Pressure 111/72 12/10/2017 4:37 AM CDT Pulse 73 12/10/2017 4:37 AM CDT Temperature 36.7 ??C (98.1 ??F) 12/10/2017 4:37 AM CD T Respiratory Rate 16 12/10/2017 4:37 AM CDT Oxygen Saturation 95% 12/10/2017 4:37 AM CDT Inhaled Oxygen Concentration - - Weight 91.2 kg (201 lb 1.6 oz) 12/04/2017 6:05 P M CDT Height 165.1 cm (5' 5 ) 12/04/2017 6:05 PM CDT Body Mass Index 33.46 12/04/2017 6:05 PM CDT documented in this encounter Discharge Summaries * Odette Che MD - 12/09/2017 8:37 PM CDT [facility] Adult Hospitalist Discharge Summary Patient Name: Casandra Jones / 42 y.o. / female : 1975 Primary Care Physician: Jaylen Cash Provider Date of Admission: 12/04/2017 Date of Discharge : 12/10/2017 Admitting Diagnoses: High triglycerides Discharge Diagnoses: See hospital course MEDICATIONS Discharge medications and new prescriptions: Medication List START taking these medications hydrocortisone 1 % Ointment Apply to affected area 2 times daily. Signed by: Odette Ceh MD Quantity: 28 Gram Refills: 0 SENNA LAX 8.6 mg tablet Take 1 Tablet by mouth 2 times daily. Signed by: Odette Che MD Quantity: 30 Tablet Refills: 0 Generic drug: sennosides CHANGE how you take these medications insulin glargine 100 unit/mL injection Commonly known as: LANTUS What changed: ?? how much to take ?? when to take this ?? additional instructions Inject 10 Units by subcutaneous injection 2 times daily. Signed by: Odette Che MD Quantity: 15 mL Refills: 0 levothyroxine 200 mcg tablet Commonly known as: SYNTHROID What changed: ?? medication strength ?? how much to take Take 1 Tablet by mouth daily pinion staker. Signed by: Odette Che MD Quantity: 30 Tablet Refills: 3 Pmgpq1-KegJ2-O97-E-FA-Fish Oil [phone] uc-vj-xpi-mcg Capsule What changed: ?? how much to take ?? when to take this Take 2 Caplets by mouth 2 times daily. Signed by: Odette Che MD Quantity: 120 Capsule Refills: 3 CONTINUE taking these medications tlffmtv-zhynby-dhqdtikj DR 60-12-38 capsule Commonly known as: CREON 12 Take by mouth 3 times daily after meals. Refills: 0 citalopram 40 mg tablet Commonly known as: CeleXA Take 40 mg by mouth daily at bedtime. Refills: 0 fenofibrate nanocrystallized 145 mg tablet Commonly known as: TRICOR Take 145 mg by mouth daily. Refills: 0 LORazepam 1 mg tablet Commonly known as: ATIVAN Take 1 mg by mouth 2 times daily as needed for Anxiety . Refills: 0 magnesium oxide 400 mg tablet Commonly known as: MAG-OX Take 400 mg by mouth daily. Refills: 0 metFORMIN 500 mg tablet Commonly known as: GLUCOPHAGE Take 500 mg by mouth 2 times daily with meals. Refills: 0 niacin 500 mg tablet Commonly known as: NIACOR Take 500 mg by mouth 2 times daily. Refills: 0 pantoprazole 40 mg [...] by mouth daily at bedtime. Refills: 0 Where to Get Your Medications These medications were sent to [address] [facility] [address] Hours: Saturday-Saturday: 8 a.m. - 8 p.m., Saturday: 9 a.m. - 5 p.m., Sebastian: 10 a.m. - 2 p.m. ?? hydrocortisone 1 % Ointment ?? insulin glargine 100 unit/mL injection ?? levothyroxine 200 mcg tablet ?? Tsttl4-LtiD2-N88-E-FA-Fish Oil [phone] iz-qr-oqy-mcg Capsule ?? SENNA LAX 8.6 mg tablet Consults: Endocrine and GI Significant Diagnostic Studies: Labs and studies that are pending or need follow-up: routine Discharge Exam: Patient Vitals for the past 24 hrs: BP Temp Temp src Pulse Resp SpO2 12/10/17 0437 111/72 98.1 ??F (36.7 ??C) Oral 73 16 95 % 12/09/172002 125/77 97.8 ??F (36.6 ??C) Oral 76 20 96 % Chest: CTA bilaterally CV: RRR, nl S1. S2 Abd: positive BS, soft, NT, ND Ext: no cyanosis or edema Hospital Course: Patient is a 42 y.o. 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 TG checked there on 12/03/17 was [address] Lip[address] a/p normal. Per notes from OSH patients TG were down to 400s from 2600 end of October after plasmapheresis. Abdominal pain- Appreciate input from GI. Dietary consult is given. Weaned off Iv morphine and discontinued po narcotics today. Lipase and CT scan do not suggest pancreatitis. ?? Hypertriglyceridemia- TGL trended to 700 today. No indication for plasmapheresis. Cont fish oil, niacin and fenofibrate. Received IVF while inpt. Endocrine evaluated the pt ?? Depression with anxiety-continue Cymbalta, trazodone and Ativan ?? Type 2 diabetes mellitus without complication, with long-term current use of insulin-monitor. takeslantus at 28 units am and 38 units bedtime which is decreased to 10 units bid on discharge as pt did not require lantus while inpt and BS fair on SSI. ?? Acquired hypothyroidism-dose increased this admission per endocrine asTSH high. Follow-up labs in 6weeks. Discharge Condition: stable. Disposition: home Code Status: full Patient instructions: Activity: As tolerated Diet: Low carb and low fat diet Follow-up: Nom, External Provider More than 30 minutes were spent in this discharge activity. Signed: Odette Che MD 12/10/2017, 4:06 PM documented in this encounter Discharge Instructions * Discharge Instructions* Odette Che MD - 12/10/2017 7:43 AM CDT Your discharging physician is Odette Che MD and may be reached at [phone] for any questions or concerns until you see your doctor. FOLLOW-UP Follow up with PCP in 7 days Follow up with dr Rudd. Call [phone] to make an appointment MEDS: Prescriptions given? Yes SIGNS AND SYMPTOMS TO REPORT: Contact your health care provider if you experience any of the following symptoms: Worsening shortness of breath, worsening chest pain, fever >101.5, profuse diarrhea, severe nausea and vomiting Smoking Exposure: [facility] encourages all patients to decrease risks associated with smoking and second hand smoke exposure. If you smoke you are advised to quit. Ask your health care provider for advice if you need assistance to stop smoking. Avoid second-hand smoke exposure and do not let people smoke in your home. Please call [phone], our pulmonary rehabilitation department, to learn more about options to reduce your risks ACTIVITY: Your activity level is: as tolerated You may return to work/school DIET: Your diet is: Low fat diet documented in this encounter Medications at Time of Discharge Medication Sig Dispensed Refills Start Date End Date levothyroxine 200 mcg tablet Take 1 Tablet by mouth daily pinion staker. 30 Tablet 3 12/11/2017 04/10/2018 Vtcwe3-RmwZ3-L57-E-FA-F bossman Oil [phone] ug-ha-rpm-mcg Capsule Take 2 Caplets by mouth 2 [...] daily as needed for Anxiety . 06/18/2020 enxmecu-pclybu-vktdnxld DR (CREON 12 60-12-38 capsule Take by mouth 3 times daily after meals. 04/10/2018 fenofibrate nanocrystallized (TRICOR) 145 mg tablet Take 145 mg by mouth daily. 04/10/2018 citalopram (CeleXA) 40 mg tablet Take 40 mg by mouth daily at bedtime. 11/01/2020 levothyroxine (SYNTHROID) 137 mcg Oral tabletIndications:Unspe cified hypothyroidism Take 1 Tab by mouth daily pinion staker. TAKE WITHOUT FOOD 30 Tab 0 03/20/2013 [...] as of this encounter Progress Notes * Alyson Webster - 12/10/2017 11:00 AM CDT Reason for Encounter Initial encounter to introduce self, role of pharmacy aide and to assess Patient Spiritual Issues Identified Needs/hopes/resources Family jackie/values/dynamics Level of spiritual distress (none, mild, moderate, severe) Jackie Sabianist Looking forward to going home to be with children None Spiritual Interventions Affirmation, spiritual support Outcomes of Care Level of spiritual distress after intervention Appreciative of concern and prayer Goals of Spiritual Care Spiritual and emotional support Comic 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 PRN Morphine d/c. Only on PO narcotics now. Plan to d/c in the am. * Odette Che MD - 12/09/2017 12:29 PM CDT [facility] Adult Hospitalist Progress Note Admit Date: 12/04/2017 Date of Note: 12/09/2017, 12:29 PM PCP: Shailesh, External Provider LOS: 5 days Previous history of present illness, review of systems, medications, labs, studies, notes, orders and consults have been reviewed today. Previous history of present illness and review of systems have been reviewed today as documented inthe H&P on 12/04/2017; medications, labs, studies, notes, orders and consults have been reviewed.I have reviewed the notes from yesterday. Subjective: Abdominal pain little better Still has nausea. Tolerating full liquid diet Advance diet to low carb and low fat diet Wean off morphine in am and limit po narcotics Objective: BP 104/61 (BP Location: Right arm, Patient Position (BP): Supine) Pulse 69 Temp 97.8 ??F (36.6 ??C) (Oral) Resp 14 Ht 5' 5 (1.651 m) Wt 91.2 kg (201 lb 1.6 oz) SpO2 92% ? No BMI 33.46 kg/m?? Temp (24hrs), Av.9 ??F (36.6 ??C), Min:97.8 ??F (36.6 ??C), Max:97.9 ??F (36.6 ??C) Exam: Gen alert, cooperative, no distress, Lungs clear to auscultation bilaterally Heart regular rate and rhythm, S1, S2 normal, no murmur, Abdomen soft, non-tender. Bowel sounds normal. Extremities extremities normal, no edema Mental Status AAO Data Base: I have reviewed all new labs and studies resulted and pertinent ones are noted below Assessment/Plan of Actively Managed Problems Abdominal pain- Appreciate input from GI. Dietary consult is given. Wean off Iv morphine and limit po narcotics. Hypertriglyceridemia-less than 800 today. Monitor closely. Endocrine on board. Continue IV fluids. No plans for plasmapheresis. Cont fish oil, niacin and fenofibrate Depression with anxiety-continue Cymbalta, trazodone and Ativan Type 2 diabetes mellitus without complication, with long-term current use of insulin-monitor. Continue sliding scale. Advance diet to low carb and fat restricted diet today Acquired hypothyroidism-dose increased this admission per endocrine asTSH high. Follow-up labs in 6weeks. ?? DVT Prophylaxis - Enoxaparin Pettit catheter:absent Lines: Peripheral IV Current Code Status -Full Code Plan discussed with patient, questions answered. Current Planned Disposition - Home in am Stable/Resolved Issues/Follow Up Needs MD Odette Aguila MD [facility] Hospitalist [phone] (p) * Blake Rudd MD - 12/09/2017 12:28 PM CDT Name: Casandra Jones : 1975 Date: 12/09/2017 Room/Bed: [facility]/ Hospital Day: LOS: 5 days Reason for consult: Hyper TG Subjective: Continues to have abd pain. Worsened after transitioning to full liquids. TGs <800 this AM. Primary team trying to transition to PO pain meds Review of Systems - General ROS: negative for weight changes, fever Cardiovascular ROS: negative for chest pain or dyspnea on exertion Gastrointestinal ROS: positive for - abdominal pain Musculoskeletal ROS: positive for - pain in back MEDICATIONS: Current Facility-Administered Medications Medication Dose Route Frequency Provider Last Rate Last Dose ??? morphine 4 mg/mL injection 3 mg 3 mg IV q 6 hour PRN Odette Che MD ??? sennosides (SENOKOT) tablet 8.6 mg 8.6 mg Oral BID Odette Che MD 8.6 mg at 12/09/17 1205 ??? [DISCONTINUED] morphine 4 mg/mL injection 4 mg 4 mg IV q 6 hour PRN Odette Che MD ??? [DISCONTINUED] bisacodyl (DULCOLAX) rectal suppository 10 mg 10 mg Rectal Daily PRN Odette Che MD ??? HYDROcodone-acetaminophen (NORCO) 5-325 mg per tablet 1 Tablet 1 Tablet Oral q 4 hour PRN Odette Che MD 1 Tablet at 12/09/17 1015 ??? [DISCONTINUED] morphine 4 mg/mL injection 4 mg 4 mg IV q 4 hour PRN Odette Che MD 4 mg at 12/09/17 0152 ??? fish oil-omega-3 fatty acids 340-1,000 mg capsule 2 Capsule 2 Capsule Oral BID Blake Rudd MD 2 Capsule at 12/09/17 1012 ??? levothyroxine (SYNTHROID) tablet 200 mcg 200 mcg Oral Daily EARLY Blake Rudd MD 200mcg at 12/09/17 0600 ??? LORazepam (ATIVAN) tablet 1 mg 1 mg Oral BID PRN Angie Louis MD 1 mg at 12/08/17 1713 ??? magnesium oxide (MAG-OX) tablet 400 mg 400 mg Oral Daily Angie Louis MD 400 mg at 12/09/17 1012 ??? niacin (NIACOR) tablet 500 mg 500 mg Oral BID Angie Louis MD 500 mg at 12/09/17 1012 ??? pantoprazole (PROTONIX) tablet 40 mg 40 mg Oral Daily Angie Louis MD 40 mg at 12/09/17 1012 ??? citalopram (CeleXA) tablet 40 mg 40 mg Oral Daily BEDTIME Angie Louis MD 40 mg at 12/08/172020 ??? traZODone (DESYREL) tablet 50 mg 50 mg Oral Daily BEDTIME Angie Louis MD 50 mg at 12/08/172020 ??? naloxone (NARCAN) 0.4 mg/mL injection 0.1 mg 0.1 mg IV See Admin Notes Angie Louis MD ??? docusate sodium (COLACE) capsule 100 mg 100 mg Oral BID PRN Angie Louis MD ??? acetaminophen (TYLENOL) tablet 650 mg 650 mg Oral q 6 hour PRN Angie Louis MD ??? bisacodyl (DULCOLAX) rectal suppository 10 mg 10 mg Rectal Daily PRN Angie Louis MD ??? aluminum - magnesium - simethicone (MYLANTA) 200-200-20 mg/5 mL oral suspension 30 mL 30 mL Oral q 2 hour PRN Angie Louis MD ??? enoxaparin (LOVENOX) injection 40 mg 40 mg subCUT Daily BEDTIME Angie Louis MD 40 mg at 12/08/172021 ??? prochlorperazine (COMPAZINE) injection 10 mg 10 mg IV q 6 hour PRN Angie Louis MD 10 mg at 12/09/17 1016 ??? diphenhydrAMINE (BENADRYL) tablet 25 mg 25 mg Oral q 6 hour PRN Angie Louis MD 25 mg at 12/09/17 1205 ??? atorvastatin (LIPITOR) tablet 80 mg 80 mg Oral Daily BEDTIME Angie Louis MD 80 mg at 12/08/172020 ??? fenofibrate (LOFIBRA) tablet 160 mg 160 mg Oral Daily Angie Louis MD 160 mg at 12/09/17 1012 ??? dextrose 5% infusion IV See Admin Notes Angie Louis MD ??? dextrose 50% (D50) syringe 12.5 Gram 12.5 Gram IV See Admin Notes Angie Louis MD ??? dextrose 50% (D50) syringe 25 Gram 25 Gram IV See Admin Notes Angie Louis MD ??? glucagon HCl 1 mg injection 1 mg 1 mg IM See Admin Notes Angie Louis MD ??? insulin lispro (HumaLOG) variable dose injection subCUT q 4 hour Angie Louis MD 1 Units at 12/09/17 0442 ??? potassium Cl 40 mEq in dextrose 5% - NaCl 0.9% 1000 mL infusion IV Continuous Uzma Yusuf MD 40 mL/hr at 12/08/17 0822 ALLERGIES: No Known Allergies PHYSICAL EXAM: BP 104/61 (BP Location: Right arm, Patient Position (BP): Supine) Pulse 69 Temp 97.8 ??F (36.6 ??C) (Oral) Resp 14 Ht 5' 5 (1.651 m) Wt 91.2 kg (201 lb 1.6 oz) SpO2 92% ? No BMI 33.46 kg/m?? NAD, lying comfortably in bed sleeping RRR, no m/r/g, no edema CTAB Tenderness in epigastric region LABS: Recent Labs 12/07/17 0714 12/08/17 0752 WBC 7.1 -- HGB 11.6* -- HCT 34.9* -- PLT 181 -- NA 136 136 K 3.8 4.0 CL 99 100 CO2 22 26 BUN 3* 3* CREAT 0.56 0.69 GLUCOSE 119* 116* Previous Hemoglobin A1C Results: HEMOGLOBIN A1C Date Value Ref Range Status 12/04/2017 8.3 (H) 4.0 - 6.0 % Final POC Glucose Range: Lab Results Component Value Date/Time GLUCPOC 134 (H) 12/09/2017 08:13 AM GLUCPOC 143 (H) 12/09/2017 04:01 AM GLUCPOC 124 (H) 12/09/2017 12:08 AM GLUCPOC 137 (H) 12/08/2017 08:23 PM GLUCPOC 143 (H) 12/08/2017 05:09 PM GLUCPOC 140 (H) 12/08/2017 01:41 PM GLUCPOC 116 (H) 12/08/2017 08:31 AM GLUCPOC 119 (H) 12/08/2017 04:19 AM GLUCPOC 146 (H) 12/08/2017 12:28 AM GLUCPOC 120 (H) 12/07/2017 08:51 PM ASSESSMENT AND PLAN: 42yoF here with abd pain and hyperTGemia #) hyperTGemia. <800 this morning. Continue fish oil, niacin, and fenofibrate. OK to d/c at thispoint from TG perspective. 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 I am not certain this is due to hyperTGemia. She seems very comfortable in bed despitecomplaining of such severe pain. Would recommend no more IV pain meds. #) Hypothyroidism: dose increase this visit. Needs repeat TFTs in 6 wks. #) T2DM: no insulin requirements on current diet. Please call [phone] with questions. Thank you for this consult. Blake Rudd MD PhD * Odette Che MD - 12/08/2017 2:00 PM CDT [facility] Adult Hospitalist Progress Note Admit Date: 12/04/2017 Date of Note: 12/08/2017, 2:00 PM PCP: Shailesh, External Provider LOS: 4 days Previous history of present illness, review of systems, medications, labs, studies, notes, orders and consults have been reviewed today. Previous history of present illness and review of systems have been reviewed today as documented inthe H&P on 12/04/2017; medications, labs, studies, notes, orders and consults have been reviewed.I have reviewed the notes from admission. Subjective: Abdominal pain better Tolerating CLD without n/v. Advance diet today Start po narcotics Objective: BP 104/69 (BP Location: Right arm, Patient Position (BP): Supine) Pulse 79 Temp 97.9 ??F (36.6 ??C) (Oral) Resp 18 Ht 5' 5 (1.651 m) Wt 91.2 kg (201 lb 1.6 oz) SpO2 98% ? No BMI 33.46 kg/m?? Temp (24hrs), Av.9 ??F (36.6 ??C), Min:97.9 ??F (36.6 ??C), Max:98 ??F (36.7 ??C) Exam: Gen alert, cooperative, no distress, Lungs clear to auscultation bilaterally Heart regular rate and rhythm, S1, S2 normal, no murmur, Abdomen soft, non-tender. Bowel sounds normal. 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 Appreciate input from GI. Clear liquid started yesterday we will advance to full liquids today.Dietary consult is given. Pain control with IV morphine but slowly wean down. Add oral narcotics today. Hypertriglyceridemia-less than 1000 today. Monitor closely. Endocrine on board. Continue IV fluids.No plans for plasmapheresis. Depression with anxiety-continue Cymbalta, trazodone and Ativan Type 2 diabetes mellitus without complication, with long-term current use of insulin-monitor. Continue sliding scale. Advance diet to full liquids today Acquired hypothyroidism-dose increased this admission per endocrine asTSH high. Follow-up labs in 6weeks. ?? DVT Prophylaxis - Enoxaparin Pettit catheter:absent Lines: Peripheral IV PT POC OT POC Activity Order: Present Activity: in bed (12/07/17 0458) Current Code Status -Full Code Plan discussed with patient, questions answered. Current Planned Disposition - Home in 1-2 days depending on clinical course Stable/Resolved Issues/Follow Up Needs MD Odette Aguila MD [facility] Hospitalist [phone] (p) * Blake Rudd MD - 12/08/2017 9:51 AM CDT TG 914 this morning. Continue current therapy. Would continue to advance diet and limit narcotic pain meds for management of abd pain. * Stephanie Babin MD - 12/07/2017 3:10 PM CDT [facility] Adult Hospitalist Progress Note Admit Date: 12/04/2017 Date of Note: 12/07/2017, 3:10 PM LOS: 3 days Previous history of present illness and review of systems have been reviewed today as documented inthe H&P on 12/04/2017; medications, labs, studies, notes, orders and consults have been reviewed.I have reviewed the notes from admission. Subjective: Abdominal still present but improving Willing to try diet No N/V Objective: BP 116/78 (BP Location: Right arm, Patient Position (BP): Sitting) Pulse 81 Temp 98.5 ??F (36.9??C) (Oral) Resp 14 Ht 5' 5 (1.651 m) Wt 91.2 kg (201 lb 1.6 oz) SpO2 97% ?No BMI 33.46 kg/m?? Temp (24hrs), Av.2 ??F (36.8 ??C), Min:97.8 ??F (36.6 ??C), Max:98.5 ??F (36.9 ??C) Exam: General: Alert, no distress. Heart: Regular rate and rhythm, S1, S2 Lungs: Clear to auscultation bilaterally Abdomen: Soft, non-tender. Feels benign Extremities: No edema Head: Normocephalic, atraumatic Neuro: Awake and alert; follows commands. Data Base: I have reviewed all new labs and studies resulted and pertinent ones are noted below Lab Results Component Value Date/Time WBC 7.1 12/07/2017 07:14 AM HGB 11.6 (L) 12/07/2017 07:14 AM HCT 34.9 (L) 12/07/2017 07:14 AM PLT 181 12/07/2017 07:14 AM MCV 91.4 12/07/2017 07:14 AM Lab Results Component Value Date/Time NA 136 12/07/2017 07:14 AM K 3.8 12/07/2017 07:14 AM CL 99 12/07/2017 07:14 AM CO2 22 12/07/2017 07:14 AM CA 9.1 12/07/2017 07:14 AM BUN 3 (L) 12/07/2017 07:14 AM CREAT 0.56 12/07/2017 07:14 AM GLUCOSE 119 (H) 12/07/2017 07:14 AM TOTALPROTEIN 6.5 (L) 12/04/2017 08:23 PM ALBUMIN 4.0 12/04/2017 08:23 PM BILITOTAL 0.2 (L) 12/04/2017 08:23 PM ALKPHOS 58 12/04/2017 08:23 PM AST 15 12/04/2017 08:23 PM ALT 11 12/04/2017 08:23 PM ANIONGAP 15 12/07/2017 07:14 AM Assessment/Plan of Actively Managed Problems ?? Abd pain: ?? 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 Appreciate input from GI ?? Start clear liquids today with low carb/fats and monitor ?? Hypertriglyceridemia: ?? Slowly improving; just over 1000 today ?? Continue IV fluids ?? No plans for plasmapheresis ?? Depression with anxiety: ?? Continue Cymbalta trazodone and Ativan ?? Type 2 diabetes mellitus without complication, with long-term current use of insulin: ?? Continue glucose checks every 4 and sliding scale for now - not sure how much she will take withclear liquids ?? Acquired hypothyroidism: ?? Dose increased per Endocrine ?? Follow-up labs in 6 weeks DVT Prophylaxis - Enoxaparin Pettit catheter:absent Lines: Peripheral IV PT POC OT POC Activity Order: Present Activity: in bed (12/07/17 0458) Current Code Status -Full Code Plan discussed with patient, questions answered. Current Planned Disposition - Home in 2-3 days depending on clinical course Stable/Resolved Issues/Follow Up Needs Stephanie Babin MD Pager [phone] * Blake Rudd MD - 12/06/2017 2:42 PM CDT Name: Casandra Jones : 1975 Date: 12/06/2017 Room/Bed: [facility]/ Hospital Day: LOS: 2 days Reason for consult: Hypertriglyceridemia Subjective: pt TG improved to 1100. Still with belly pain. Not eating. Doesn't feel hungry. No n/v.Glucoses well controlled on ssi. REVIEW OF SYSTEMS: + for abdominal pain, no n/v No CP, SOB No polydipsia or polyuria. MEDICATIONS: Current Facility-Administered Medications Medication Dose Route Frequency Provider Last Rate Last Dose ??? fish oil-omega-3 fatty acids 340-1,000 mg capsule 2 Capsule 2 Capsule Oral BID Blake Rudd MD ??? [START ON 12/07/2017] levothyroxine (SYNTHROID) tablet 200 mcg 200 mcg Oral Daily EARLY Blake Rudd MD ??? LORazepam (ATIVAN) tablet 1 mg 1 mg Oral BID PRN Angie Louis MD 1 mg at 12/06/17 1316 ??? magnesium oxide (MAG-OX) tablet 400 mg 400 mg Oral Daily Angie Louis MD 400 mg at 12/06/17 09 ??? niacin (NIACOR) tablet 500 mg 500 mg Oral BID Angie Louis MD 500 mg at 12/06/17 09 ??? pantoprazole (PROTONIX) tablet 40 mg 40 mg Oral Daily Agnie Louis MD 40 mg at 12/06/17 0908 ??? citalopram (CeleXA) tablet 40 mg 40 mg Oral Daily BEDTIME Angie Louis MD 40 mg at 12/05/172138 ??? traZODone (DESYREL) tablet 50 mg 50 mg Oral Daily BEDTIME Angie Louis MD 50 mg at 12/05/172138 ??? naloxone (NARCAN) 0.4 mg/mL injection 0.1 mg 0.1 mg IV See Admin Notes Angie Louis MD ??? docusate sodium (COLACE) capsule 100 mg 100 mg Oral BID PRN Angie Louis MD ??? acetaminophen (TYLENOL) tablet 650 mg 650 mg Oral q 6 hour PRN Angie Louis MD ??? morphine 4 mg/mL injection 2 mg 2 mg IV q 2 hour PRN Angie Luois MD 2 mg at 12/06/17 1227 ??? morphine 4 mg/mL injection 4 mg 4 mg IV q 2 hour PRN Angie Louis MD 4 mg at 12/06/17 0608 ??? bisacodyl (DULCOLAX) rectal suppository 10 mg 10 mg Rectal Daily PRN Angie Louis MD ??? aluminum - magnesium - simethicone (MYLANTA) 200-200-20 mg/5 mL oral suspension 30 mL 30 mL Oral q 2 hour PRN Angie Louis MD ??? enoxaparin (LOVENOX) injection 40 mg 40 mg subCUT Daily BEDTIME Angie Louis MD 40 mg at 12/05/17 2140 ??? prochlorperazine (COMPAZINE) injection 10 mg 10 mg IV q 6 hour PRN Angie oLuis MD 10 mg at 12/06/17 0404 ??? diphenhydrAMINE (BENADRYL) tablet 25 mg 25 mg Oral q 6 hour PRN Angie Louis MD 25 mg at 12/05/17 0915 ??? atorvastatin (LIPITOR) tablet 80 mg 80 mg Oral Daily BEDTIME Angie Louis MD 80 mg at 12/05/17 2139 ??? fenofibrate (LOFIBRA) tablet 160 mg 160 mg Oral Daily Angie Louis MD 160 mg at 12/06/17 0907 ??? dextrose 5% infusion IV See Admin Notes Angie Louis MD ??? dextrose 50% (D50) syringe 12.5 Gram 12.5 Gram IV See Admin Notes Angie Louis MD ??? dextrose 50% (D50) syringe 25 Gram 25 Gram IV See Admin Notes Angie Louis MD ??? glucagon HCl 1 mg injection 1 mg 1 mg IM See Admin Notes Angie Louis MD ??? insulin lispro (HumaLOG) variable dose injection subCUT q 4 hour Angie Louis MD 1 Units at 12/05/17 1351 ??? potassium Cl 40 mEq in dextrose 5% - NaCl 0.9% 1000 mL infusion IV Uzma Pollock MD 40 mL/hr at 12/06/17 0409 ??? [DISCONTINUED] fish oil-omega-3 fatty acids 340-1,000 mg capsule 1 Capsule 1 Capsule Oral DailyAngie Louis MD 1 Capsule at 12/06/17 0907 ??? [DISCONTINUED] levothyroxine (SYNTHROID) tablet 175 mcg 175 mcg Oral Daily EARLY Angie Louis MD 175 mcg at 12/06/17 0545 ALLERGIES: No Known Allergies PHYSICAL EXAM: BP (!) 108/7 (BP Location: Left arm, Patient Position (BP): Supine) Pulse 74 Temp 98 ??F (36.7 ??C) Resp 12 Ht 5' 5 (1.651 m) Wt 91.2 kg (201 lb 1.6 oz) SpO2 94% ? No BMI 33.46 kg/m?? GEN: well-nourished, NAD HEENT: normocephalic, autramatic; sclera anicteric CV: RRR, no m/r/g; RESP: CTAB ABD: tender in epigastric region NEURO: A&O SKIN: warm and dry LABS: Recent Labs 12/04/172022 WBC 7.7 HGB 11.4* HCT 34.3* PLT 208 NA 132* K 3.4* CL 98 CO2 24 BUN 5* CREAT 0.53 GLUCOSE 122* ALT 11 AST 15 Previous Hemoglobin A1C Results: HEMOGLOBIN A1C Date Value Ref Range Status 12/04/2017 8.3 (H) 4.0 - 6.0 % Final POC Glucose Range: Lab Results Component Value Date/Time GLUCPOC 106 (H) 12/06/2017 12:09 PM GLUCPOC 112 (H) 12/06/2017 08:34 AM GLUCPOC 113 (H) 12/06/2017 05:47 AM GLUCPOC 116 (H) 12/06/2017 01:40 AM GLUCPOC 123 (H) 12/05/2017 09:45 PM GLUCPOC 112 (H) 12/05/2017 05:11 PM GLUCPOC 143 (H) 12/05/2017 01:48 PM GLUCPOC 155 (H) 12/05/2017 09:24 AM GLUCPOC 150 (H) 12/05/2017 03:55 AM GLUCPOC 132 (H) 12/04/2017 10:30 PM ASSESSMENT AND PLAN: 42yoF with hypertriglyceridemia and T2DM #) HyperTG: improving, cont fenofibrate and niacin. I maxed out her fish oil today. Goal to get her<1000. No need for pheresis or insulin gtt at this time. It would be reasonable to allow her to try some clear liquids (low carb, low fat). Needs compensation business partner c/s. Has to be compliant with low carb, very low fat at home. Awaiting spot urine protein. #) T2DM: little to no insulin requirements here. Continue SSI insulin for now. #) Electrolyte abn: hypocalcemia and hyponatremia present on admission, would repeat CMP #) Hypothyroidism: increased LT4 this morning. #) Abd pain: stable Please call [phone] with questions. Blake Rudd MD PhD * Uzma Yusuf MD - 12/06/2017 1:23 PM CDT [facility] Adult Hospitalist Progress Note Admit Date: 12/04/2017 Date of Note: 12/06/2017, 1:23 PM LOS: 2 days Previous history of present illness and review of systems have been reviewed today as documented inthe H&P on 12/04/2017; medications, labs, studies, notes, orders and consults have been reviewed.I have reviewed the notes from admission. Subjective: Patient still complains of epigastric abdominal pain and nausea along with no appetite. Objective: BP (!) 108/7 (BP Location: Left arm, Patient Position (BP): Supine) Pulse 74 Temp 98 ??F (36.7 ??C) Resp 12 Ht 5' 5 (1.651 m) Wt 91.2 kg (201 lb 1.6 oz) SpO2 94% ? No BMI 33.46 kg/m?? Temp (24hrs), Av.9 ??F (36.6 ??C), Min:97.5 ??F (36.4 ??C), Max:98.4 ??F (36.9 ??C) Exam: General: No acute distress Heart: S1S2 present. Regular. No murmurs Lungs: Clear to auscultation. No added sounds. Abd: Soft and epigastric tenderness present. BS present. No organomegaly. Ext: No edema Data Base: I have reviewed all new labs and studies resulted and pertinent ones are noted below Lab: Results for orders placed or performed during the hospital encounter of 12/04/17 (from the past 24 hour(s)) POC GLUCOSE Result Value Ref Range POC GLUCOSE 143 (H) 74 - 99 mg/dL SENIOR PORTFOLIO MANAGER NAME GREG TREVIÑO POC GLUCOSE Result Value Ref Range POC GLUCOSE 112 (H) 74 - 99 mg/dL SENIOR PORTFOLIO MANAGER NAME ABHAY BEATTY POC GLUCOSE Result Value Ref Range POC GLUCOSE 123 (H) 74 - 99 mg/dL SENIOR PORTFOLIO MANAGER NAME JIGNA MARTINEZ POC GLUCOSE Result Value Ref Range POC GLUCOSE 116 (H) 74 - 99 mg/dL SENIOR PORTFOLIO MANAGER NAME JIGNA MARTINEZ POC GLUCOSE Result Value Ref Range POC GLUCOSE 113 (H) 74 - 99 mg/dL SENIOR PORTFOLIO MANAGER NAME JIGNA MARTINEZ TRIGLYCERIDE Result Value Ref Range TRIGLYCERIDE 1,107 (H) <150 mg/dL POC GLUCOSE Result Value Ref Range POC GLUCOSE 112 (H) 74 - 99 mg/dL SENIOR PORTFOLIO MANAGER NAME SHIVANI BROWNINE POC GLUCOSE Result Value Ref Range POC GLUCOSE 106 (H) 74 - 99 mg/dL SENIOR PORTFOLIO MANAGER NAME ROSALVA BROWN Assessment/Plan of Actively Managed Problems ?? Abd pain: ?? 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 Appreciate input from GI ?? Hypertriglyceridemia: ?? Repeat tgl levels in am. ?? Decreasing with n.p.o. and IV fluids ?? If she does not drop as expected would benefit from plasmapheresis per endo ?? Depression with anxiety: ?? Continue Cymbalta trazodone and Ativan ?? Type 2 diabetes mellitus without complication, with long-term current use of insulin: ?? Continue glucose checks every 4 and sliding scale while she is n.p.o. ?? Acquired hypothyroidism: ?? Dose increased per Endocrine ?? Follow-up labs in 6 weeks DVT Prophylaxis - Enoxaparin Pettit catheter:absent Lines: Peripheral IV PT POC OT POC Activity Order: Present Activity: up in room;ambulated (12/06/17 1218) Current Code Status -Full Code Plan discussed with patient, questions answered. Current Planned Disposition -home pending course More than 35 minutes were spent in the care of this patient today; more than 50% was spent in discussion of expected course of disease, discussion of prognosis, discharge planning, coordination of care and discussion of lab and test results.?? MD Kasia Walton Hospitalist 7a-7p : [phone](pager) 7p-7a: eAcute * Uzma Yusuf MD - 12/05/2017 2:38 PM CDT [facility] Adult Hospitalist Progress Note Admit Date: 12/04/2017 Date of Note: 12/05/2017, 2:38 PM LOS: 1 day Previous history of present illness and review of systems have been reviewed today as documented inthe H&P on 12/04/2017; medications, labs, studies, notes, orders and consults have been reviewed.I have reviewed the notes from admission. Subjective: Patient still complains of epigastric abdominal pain and nausea along with no appetite. Objective: BP 95/58 (BP Location: Left arm, Patient Position (BP): Supine) Pulse 82 Temp 98.2 ??F (36.8 ??C) (Oral) Resp 18 Ht 5' 5 (1.651 m) Wt 91.2 kg (201 lb 1.6 oz) SpO2 97% ? No BMI 33.46 kg/m?? Temp (24hrs), Av ??F (36.7 ??C), Min:97.6 ??F (36.4 ??C), Max:98.6 ??F (37 ??C) Exam: General: No acute distress Heart: S1S2 present. Regular. No murmurs Lungs: Clear to auscultation. No added sounds. Abd: Soft and epigastric tenderness present. BS present. No organomegaly. Ext: No edema Data Base: I have reviewed all new labs and studies resulted and pertinent ones are noted below Lab: Results for orders placed or performed during the hospital encounter of 12/04/17 (from the past 24 hour(s)) CBC WITH DIFFERENTIAL Result Value Ref Range WBC 7.7 4.0 - 9.8 K/uL RBC 3.79 (L) 3.90 - 4.90 M/uL HEMOGLOBIN 11.4 (L) 11.8 - 14.8 g/dL HEMATOCRIT 34.3 (L) 35.5 - 44.0 % MCV 90.5 82.0 - 99.0 fL MCH 30.1 27.2 - 32.6 pg MCHC 33.2 31.5 - 35.5 g/dL RDW 14.7 (H) 11.5 - 14.5 % RDW-STDEV 49.2 (H) 37.1 - 48.7 fL PLATELETS 208 140 - 350 K/uL MPV 9.0 (L) 9.3 - 12.4 fL NEUTROPHILS 64 % LYMPHOCYTES 28 % MONOCYTES 5 % EOSINOPHILS 1 % BASOPHILS 1 % IMMATURE GRANULOCYTES 1 % NEUTROPHIL ABSOLUTE 4.92 1.90 - 7.00 K/uL LYMPHOCYTE ABSOLUTE 2.17 0.70 - 4.50 K/uL MONOCYTE ABSOLUTE 0.36 0.10 - 1.30 K/uL EOSINOPHIL ABSOLUTE 0.10 0.00 - 0.70 K/uL BASOPHILS ABSOLUTE 0.04 0.00 - 0.20 K/uL IMMATURE GRANULOCYTES ABSOLUTE 0.08 (H) 0.00 - 0.03 K/uL LIPID PANEL Result Value Ref Range CHOLESTEROL 350 (H) <200 mg/dL TRIGLYCERIDE 1,496 (H) <150 mg/dL HDL 40 - 59 mg/dL LDL CALCULATED <100 mg/dL NON-HDL CHOLESTEROL <130 mg/dL COMPREHENSIVE METABOLIC PANEL Result Value Ref Range SODIUM 132 (L) 136 - 145 mmol/L POTASSIUM 3.4 (L) 3.5 - 5.0 mmol/L CHLORIDE 98 98 - 107 mmol/L CO2 24 22 - 29 mmol/L CALCIUM 8.0 (L) 8.6 - 10.2 mg/dL BUN 5 (L) 6 - 20 mg/dL CREATININE 0.53 0.51 - 0.95 mg/dL GLUCOSE 122 (H) 74 - 99 mg/dL TOTAL PROTEIN 6.5 (L) 6.7 - 8.6 g/dL ALBUMIN 4.0 3.5 - 5.2 g/dL BILIRUBIN TOTAL 0.2 (L) 0.3 - 1.2 mg/dL ALKALINE PHOSPHATASE 58 35 - 104 U/L AST 15 <33 U/L ALT 11 <34 U/L GFR >60 >=60 mL/min/1.73 sq meter GFR, >60 >=60 mL/min/1.73 sq meter ANION GAP 10 8 - 16 mmol/L LACTIC ACID Result Value Ref Range LACTIC ACID 0.9 0.5 - 2.0 mmol/L LIPASE Result Value Ref Range LIPASE 19 13 - 60 U/L SEDIMENTATION RATE Result Value Ref Range ESR (SEDIMENTATION RATE) 13 <=20 mm/Hr C-REACTIVE PROTEIN Result Value Ref Range CRP 7.7 (H) <5.0 mg/L HEMOGLOBIN A1C Result Value Ref Range HEMOGLOBIN A1C 8.3 (H) 4.0 - 6.0 % EST. AVG GLUCOSE, A1C 192 mg/dL TSH Result Value Ref Range TSH 39.54 (H) 0.27 - 4.20 uIU/mL POC GLUCOSE Result Value Ref Range POC GLUCOSE 132 (H) 74 - 99 mg/dL COMMENT, GLU POC Notified RN/MD SENIOR PORTFOLIO MANAGER NAME VICK VANCE POC GLUCOSE Result Value Ref Range POC GLUCOSE 150 (H) 74 - 99 mg/dL COMMENT, GLU POC Notified RN/MD SENIOR PORTFOLIO MANAGER NAME VICK VANCE TRIGLYCERIDE Result Value Ref Range TRIGLYCERIDE 1,462 (H) <150 mg/dL CALCIUM IONIZED Result Value Ref Range PH, VENOUS 7.34 7.32 - 7.43 CALCIUM IONIZED 4.5 (L) 4.8 - 5.2 mg/dL POC GLUCOSE Result Value Ref Range POC GLUCOSE 155 (H) 74 - 99 mg/dL SENIOR PORTFOLIO MANAGER NAME OMERCEHAIC, GREG POC GLUCOSE Result Value Ref Range POC GLUCOSE 143 (H) 74 - 99 mg/dL SENIOR PORTFOLIO MANAGER NAME OMERCEHAIC, GREG Assessment/Plan of Actively Managed Problems ?? Abd pain: ?? Less likely to be pancreatitis with negative lipase and negative CT scan of the abdomen ?? 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 Appreciate input from GI ?? Hypertriglyceridemia: ?? Decreasing with n.p.o. and IV fluids ?? If she does not drop as expected would benefit from plasmapheresis ?? Suspect patient is not compliant with diet as she is endorsing ?? Depression with anxiety: ?? Continue Cymbalta trazodone and Ativan ?? Type 2 diabetes mellitus without complication, with long-term current use of insulin: ?? Continue glucose checks every 4 and sliding scale while she is n.p.o. ?? Acquired hypothyroidism: ?? Dose increased per Endo ?? Follow-up labs in 6 weeks DVT Prophylaxis - Enoxaparin Pettit catheter:absent Lines: Peripheral IV PT POC OT POC Activity Order: Present Activity: in bed;ambulated (12/05/17 0913) Current Code Status -Full Code Plan discussed with patient, questions answered. Current Planned Disposition -home pending course More than 35 minutes were spent in the care of this patient today; more than 50% was spent in discussion of expected course of disease, discussion of prognosis, discharge planning, coordination of care and discussion of lab and test results.?? Uzma Yusuf MD [facility] Hospitalist 7a-7p : [phone](pager) 7p-7a: eAcute * Angie Louis MD - 12/04/2017 9:41 PM CDT TG continue to improve 2101-->1612-->1496 for 24 hrs, LA normal, K 3.4. Plan: will hold off of Insulin gtt since TG are improving, will replace K with fluids, recheck TG in a.m. Angie Louis MD documented in this encounter H&P Notes * Angie Louis MD - 12/04/2017 7:[address] [facility] Hospitalist H&P Patient Name: Casandra Jones Copy to Primary Care Physician: No primary care provider on file. Date of Admission: 12/04/2017 Date of Service: 12/04/2017 Chief Complaint: hypertriglyceridemia, abdominal pain/ nausea/vomiting/diarrhea HPI: Patient is a 42 y.o. female with PMH significant for Hypothyroidism, Depression/Anxiety,familial lipid disorder per patient,IDDM diagnosed in 06/2016, recurrent bouts of hypertriglyceridemia induced pancreatitis requiring plasmapheresis x 3 so far- 06/2016/ September 2017/October 2017 who presents as transfer from [facility] for management of recurrent triglyceride and symptoms consistent with Pancreatitis related to that. Patient reports that typical symptom staretd on Saturday( 5 days [employer] AP[employer] SERVIC[employer]) including diarrhea/ abdominal pain/nausea/vomiting. Patient presented to [facility] on 12/02/17 evening. TG checked there on 12/03/17 a.m. Are 2101. Lipase and Ct a/p normal. Patient reports that Lipase is always normal but ones her Lipids decrease symptoms resolve. patient has beentrying to get to lipid clinic- [place] without success. Has not eaten anything for last 3 days. Per notes from OSH patients TG were down to 400s from 2600 end of October after plasmapheresis. Patient says that Dilaudid works best For pain control . She does nto take pain medicaitons at home. Past Medical History: Past Medical History: Diagnosis Date ??? Depression ??? DM type 2 (diabetes mellitus, type 2) ??? GERD (gastroesophageal reflux disease) ??? HLD (hyperlipidemia) ??? Hypothyroidism Past Surgical History: No past surgical history on file. Current Medications: Prescriptions Prior to Admission Medication Sig Dispense Refill Last Dose ??? traZODone (DESYREL) 50 mg tablet Take 50 mg by mouth daily at bedtime. ??? spironolactone (ALDACTONE) 25 mg tablet Take 25 mg by mouth daily. ??? rosuvastatin (CRESTOR) 20 mg tablet Take 20 mg by mouth daily at bedtime. ??? pantoprazole (PROTONIX) 40 mg Tablet, Delayed Release (E.C.) Take 40 mg by mouth daily. ??? Pypkn6-[id number]-[id number]-FA-Fish Oil [id number] mm-eu-kgn-mcg Capsule Take 1 Caplet by mouth daily. ??? niacin (NIACOR) 500 mg tablet Take 500 mg by mouth 2 times daily. ??? metFORMIN (GLUCOPHAGE) 500 mg tablet Take 500 mg by mouth 2 times daily with meals. ??? magnesium oxide (MAG-OX) 400 mg tablet Take 400 mg by mouth daily. ??? LORazepam (ATIVAN) 1 mg tablet Take 1 mg by mouth 2 times daily as needed for Anxiety . ??? orereps-xqnepj-rwsgjltr DR (CREON 12) 60-12-38 capsule Take by mouth 3 times daily after meals. ??? insulin glargine (LANTUS) 100 unit/mL injection Inject by subcutaneous injection 28 units in a.m. And 38 units in HS . ??? fenofibrate nanocrystallized (TRICOR) 145 mg tablet Take 145 mg by mouth daily. ??? citalopram (CeleXA) 40 mg tablet Take 40 mg by mouth daily at bedtime. ??? levothyroxine 175 mcg tablet Take 175 mcg by mouth daily pinion staker. ??? [DISCONTINUED] levothyroxine 150 mcg tablet Take 150 mcg by mouth daily pinion staker. Medication Allergies:No Known Allergies Family History: Family History Problem Relation Age of Onset ??? Diabetes Father ??? Diabetes Mother Social History: Social History Substance Use Topics ??? Smoking status: Current Every Day Smoker Packs/day: 0.50 Types: Cigarettes ??? Smokeless tobacco: Never Used ??? Alcohol use No Review of Systems History from the [...] All Other ROS Negative Physical Exam: BP 108/62 (BP Location: Left arm, Patient Position (BP): Supine) Pulse 76 Temp 98.6 ??F (37 ??C) (Oral) Resp 17 Ht 5' 5 (1.651 m) Wt 91.2 kg (201 lb 1.6 oz) SpO2 99% ? No BMI 33.46 kg/m?? General appearance alert, cooperative, no distress [...] click, rub or gallop Abdomen soft, ttp upper abdomina.Bowel sounds normal. No masses, No organomegaly Neurologic AAO X3, Cranial nerves 2 thru 12 grossly normal, non-focal exam Extremities extremities normal, atraumatic, no cyanosis or edema, warm Skin No rashes or lesions Data Base: CBC: WBC 8.1, HGB 11.5, HCT 35.4, PLT 210 BMP:: NA 137, K 3.9, CL 105, CO2 26, ANIONGAP, CA 7.8, GLUCOSE 111, BUN, CREAT 0.6 TG 2101( 12/03/17)--> 1612( 12/04/17) Lipase 86 LFTs:normal Imaging: CT a/p w contrast: B/L ovarian cysts, chronic trace perisplenic fluid,hepatic steatosis Assessment/Plan: Assessment/Plan: 1. Pancreatitis, recurrent- presumed 2/2 recurrent triglycerides, Lipase normal ( patient reports always normal), symptoms consistent( nausea,vomiting, diarrhea, abdominal pain ), always resolves after TG level improve, has had 2 plasmapheresis for past 2 months, per notes last TG level 400s end ofJuly and now presented again with typical symptoms and initial level 2101, which Improved to 1612 next morning, no fever or tachycardia or increased RR.Plan: check CBC/CMP/LA/CRP/ESR/Lipase now, keepNPO except meds, D5 MS 100 cc/hr,consult GI - exchange called, depending upon labs results considermoving to TCU for insulin gtt, if elevated LA. Leucocytosis or hypocalcemia may need plasmapheresis 2. Hypertriglyceridemia- see above, patient on statin/niacin/fenofibrate/omega-3 already and complaint. Plan: consult endocrinology- exchange contacted, also will need to contact the lipid clinic forfollow up 3. Epigastric abdominal pain- presumed 2/2 #1. Plan: continue PPI, morphine IV prn 4. Nausea vomiting and diarrhea- related to above. Plan: Compazine prn 5. Depression with anxiety- continue home Cymbalta, Trazodone, and prn Ativan 6. Type 2 diabetes mellitus without complication, with long-term current use of insulin- patient has not taken Lantus for last 2-3 days, reportedly blood glucose was not high, will be NPO. Plan; start Hypoglycemia/hyperglycemia pathway with blood glucose checks q 4 hrs, Humalog LD correctional q 4 hrs, consider resuming low dose Lantus,c heck HgbA1C 7. Acquired hypothyroidism- continue Levothyroxine, check TSH ??? DVT Prophlaxis: Enoxaparin ??? Current Planned Disposition: home ??? Plan discussed with patient; questions answered; patient agrees with current plan. ??? Current Code Status: Full . Angie Louis MD [facility] Hospitalist [phone] documented in this encounter Consult Notes * Tyshawn Marlys Maxwell, ARMAND - 12/09/2017 3:14 PM CDTAssociated Order(s): IP CONSULT TO NUTRITION SERVICES Images from the original note were not included. CLINICAL DIETITIAN PROGRESS NOTE [facility] Follow Up A: Height: 5' 5 (165.1 cm) (12/04/171804) Weight: 91.2 kg (201 lb 1.6 oz) (12/04/17 180) Last Bowel Movement (mm/dd/yyyy): 12/02/17 (12/04/17 1758) Chin Score: 21 (12/09/17 1019) Lab Results Component Value Date/Time NA 136 12/08/2017 07:52 AM K 4.0 12/08/2017 07:52 AM CL 100 12/08/2017 07:52 AM BUN 3 (L) 12/08/2017 07:52 AM CREAT 0.69 12/08/2017 07:52 AM GLUCOSE 116 (H) 12/08/2017 07:52 AM CA 9.1 12/08/2017 07:52 AM ALBUMIN 4.0 12/04/2017 08:23 PM GFR >60 12/08/2017 07:52 AM meds noted including lipitor, fish oil, norco, lispor, synthroid, mg ox, protonix, k cl, senokot. DIET FAT CONTROL D: Same I:Nutrition Intervention: Spoke with pt. Pt had been instructed by ARMAND on low fat, low carb diet Saturday. Suspect some nausea and pain yesterday from high fat on full liquid diet. Diet now low fat diet. Pt hasn't eaten today. Encouraged her to eat dinner. She has no questions regarding diet. M/E: 1. Continue to monitor nutrition, weight, lab values, and skin. 2. Follow up every 4 days and as needed. * Ligia Cuevas RD - 12/07/2017 3:00 PM CDTAssociated Order(s): IP CONSULT TO NUTRITION SERVICES CLINICAL DIETITIAN PROGRESS NOTE [facility] Nutrition Consult: assessment A: Dx/PMH: hypertriglyceridemia, DM, abd pain Diet:DIET CLEAR LIQUID PO: poor Height: 5' 5 (165.1 cm) (12/04/17 1805) Weight: 91.2 kg (201 lb 1.6 oz) (12/04/17 180) Body mass index is 33.46 kg/m??. IBW: 125 lb Last Bowel Movement (mm/dd/yyyy): 12/02/17 (12/04/17 1758) Chin Score: 19 (12/07/17 0835) Skin: no breakdown noted Labs: Na: 136, K+: 3.8, BUN: 3, creat: .56, bs: 103-126, T, A1c: 8.3 Lab Results Component Value Date/Time HGBA1C 8.3 (H) 12/04/2017 08:23 PM Pert Meds: lipitor, fish oil, insulin, compazine Allergies: No Known Food Allergies D: Nutrition education/counseling r/t need for diet education review I: Nutrition Prescription: NPO Nutrition Intervention: Pt reports following a diet at home (9 carb choices per day, 10g fat per day). Pt avoids artifical sweeteners because they give her migraines. Pt said she found a low carb, low fat supplement with no artificial sweeteners, recommended she have family bring this supplement infor her. Suggested skim milk, low fat/fat free yogurt, deli meats, vegetables, fruit in moderation,broth based soups. Provided written instruction with contact info. M/E: 1. Currently NPO, plan to advance to Clear. Recommend family bring in her low carb/low fat supplement. 2. Monitor nutrition, weight, lab values, and skin. Follow up every 4 days and as needed. Ligia Higuera RDLD pgr [phone] * Blake Rudd MD - 12/05/2017 12:44 PM CDTAssociated Order(s): IP CONSULT TO ENDOCRINOLOGY Images from the original note were not included. [facility] ENDOCRINOLOGY CONSULT NOTE Name: Casandra Jones : 1975 Date: 12/05/2017 Room/Bed: 6347/1 Hospital Day: LOS: 1 day Reason for consult: Hyper TG HPI: This patient is a 42-year-old female with history of hypothyroidism, depression, hypertriglyceridemia, and type 2 diabetes. She reports that on Saturday or Saturday, she developed symptoms of nausea, vomiting, diarrhea, and abdominal pain. This prompted her to present to [facility] on Saturday. She was found to have triglycerides that exceeded 2000. Lipase was normal, as well as CT scan of her abdomen. She was transferred here for further management yesterday. GI was consulted at that time and feels that this is not related to pancreatitis. Her triglycerides have come down to the 1400s. She has been n.p.o. since Saturday. Today, she reports that her nausea, vomiting, and diarrhea have improved. She continues to have abdominal pain. This is noted in the epigastric region. Patient reports that she has been compliant with all meds. She was diagnosed with hypertriglyceridemia about 10-15 years ago. At home, she is on fenofibrate 145 mg 1 g of fish oil, and niacin 500 mg twice daily. I believe that her fenofibrate has been held since admission to the hospital. She reports that she has had several hospitalizations for possible pancreatitis. She reports that her lipase and CT scan are always normal. She has had multiple rounds of a pheresis. This successfully lowers her triglycerides but they rise again over time. We discussed her diet at length. She reports no alcohol use. She tries to limit her simple carbohydrates. She eats 2-3 servings of fruit daily this is usually in the form of grapefruit or grapes. Shereports that she also tries to adhere to a low-fat diet. Dinner is typically serving of pasta, salad, and lean meat. The patient reports that the issues of abdominal pain relatively new. He has been ongoing for about2 years. She had no episodes of pancreatitis previously Regarding her history of type 2 diabetes her most recent A1c is 8.3. She was started on insulin about 1 year ago. She takes 28 units of morning and 38 units in the evening. She takes NovoLog 12/08/13 with meals. She reports that blood sugars tend to run between 150 and 250 she denies hypoglycemia. She also takes metformin. REVIEW OF SYSTEMS: MEDICATIONS: Current Facility-Administered Medications Medication Dose Route Frequency Provider Last Rate Last Dose ??? LORazepam (ATIVAN) tablet 1 mg 1 mg Oral BID PRN Angie Louis MD ??? fish oil-omega-3 fatty acids 340-1,000 mg capsule 1 Capsule 1 Capsule Oral Daily Angie Louis MD 1 Capsule at 12/05/17914 ??? magnesium oxide (MAG-OX) tablet 400 mg 400 mg Oral Daily Angie Louis MD 400 mg at 12/05/17914 ??? niacin (NIACOR) tablet 500 mg 500 mg Oral BID Angie Louis MD 500 mg at 12/05/17914 ??? pantoprazole (PROTONIX) tablet 40 mg 40 mg Oral Daily Angie Louis MD 40 mg at 12/05/17914 ??? citalopram (CeleXA) tablet 40 mg 40 mg Oral Daily BEDTIME Angie Louis MD 40 mg at 12/04/172123 ??? traZODone (DESYREL) tablet 50 mg 50 mg Oral Daily BEDTIME Angie Louis MD 50 mg at 12/04/172123 ??? levothyroxine (SYNTHROID) tablet 175 mcg 175 mcg Oral Daily EARLY Angie Louis MD 175 mcg at 12/05/1741 ??? naloxone (NARCAN) 0.4 mg/mL injection 0.1 mg 0.1 mg IV See Admin Notes Angie Louis MD ??? docusate sodium (COLACE) capsule 100 mg 100 mg Oral BID PRN Angie Louis MD ??? acetaminophen (TYLENOL) tablet 650 mg 650 mg Oral q 6 hour PRN Angie Louis MD ??? morphine 4 mg/mL injection 2 mg 2 mg IV q 2 hour PRN Angie Louis MD 2 mg at 12/05/17 1218 ??? morphine 4 mg/mL injection 4 mg 4 mg IV q 2 hour PRN Angie Louis MD 4 mg at 12/05/17 1030 ??? bisacodyl (DULCOLAX) rectal suppository 10 mg 10 mg Rectal Daily PRN Angie Louis MD ??? aluminum - magnesium - simethicone (MYLANTA) 200-200-20 mg/5 mL oral suspension 30 mL 30 mL Oral q 2 hour PRN Angie Louis MD ??? enoxaparin (LOVENOX) injection 40 mg 40 mg subCUT Daily BEDTIME Angie Louis MD ??? prochlorperazine (COMPAZINE) injection 10 mg 10 mg IV q 6 hour PRN Angie Louis MD 10 mg at 12/05/17 0358 ??? diphenhydrAMINE (BENADRYL) tablet 25 mg 25 mg Oral q 6 hour PRN Angie Louis MD 25 mg at 12/05/17 0915 ??? atorvastatin (LIPITOR) tablet 80 mg 80 mg Oral Daily BEDTIME Angie Louis MD 80 mg at 12/04/174 ??? fenofibrate (LOFIBRA) tablet 160 mg 160 mg Oral Daily Angie Louis MD 160 mg at 12/05/17 0915 ??? dextrose 5% infusion IV See Admin Notes Angie Louis MD ??? dextrose 50% (D50) syringe 12.5 Gram 12.5 Gram IV See Admin Notes Angie Louis MD ??? dextrose 50% (D50) syringe 25 Gram 25 Gram IV See Admin Notes Angie Louis MD ??? glucagon HCl 1 mg injection 1 mg 1 mg IM See Admin Notes Angie Louis MD ??? insulin lispro (HumaLOG) variable dose injection subCUT q 4 hour Angie Louis MD 1 Units at 12/05/17 0933 ??? potassium Cl 40 mEq in dextrose 5% - NaCl 0.9% 1000 mL infusion IV Continuous Angie Louis MD 100 mL/hr at 12/05/17 1030 ??? [DISCONTINUED] rosuvastatin (CRESTOR) tablet 20 mg 20 mg Oral Daily BEDTIME Angie Louis MD ??? [DISCONTINUED] fenofibrate nanocrystallized (TRICOR) tablet 145 mg 145 mg Oral Daily Angie Louis MD ??? [DISCONTINUED] sodium chloride 0.9% infusion IV Continuous Angie Louis MD Stopped at 12/04/177 ??? [DISCONTINUED] dextrose 5% - sodium chloride 0.9% infusion IV Continuous Angie Louis MD Stopped at 12/04/17 2204 ALLERGIES: No Known Allergies PAST MEDICAL HISTORY: Past Medical History: Diagnosis Date ??? Depression ??? DM type 2 (diabetes mellitus, type 2) ??? GERD (gastroesophageal reflux disease) ??? HLD (hyperlipidemia) ??? Hypothyroidism No past surgical history on file. FAMILY HISTORY: Family History Problem Relation Age of Onset ??? Diabetes Father ??? Diabetes Mother Denies fam hx of hyper TG SOCIAL HISTORY Social History Social History ??? [...] No narrative on file PHYSICAL EXAM: BP 100/64 (BP Location: Left arm, Patient Position (BP): Supine) Pulse 68 Temp 98 ??F (36.7 ??C) (Oral) Resp 18 Ht 5' 5 (1.651 m) Wt 91.2 kg (201 lb 1.6 oz) SpO2 94% ? No BMI 33.46 kg/m?? GEN: well-nourished, obese HEENT: normocephalic, autramatic; sclera anicteric NECK: thyroid normal in size and texture with no palpable nodule, CV: RRR, no m/r/g; no LE edema, DP and PT pulsus present b/l RESP: CTAB ABD: tenderness present in epigastrum, no organomegaly NEURO: A&O, nl gait SKIN: warm and dry, no eruptive xanthoma FEET:nails without dystrophic changes, no calluses or other lesions present LYMPH: no LAD present LABS: Recent Labs 12/04/172022 WBC 7.7 HGB 11.4* HCT 34.3* PLT 208 NA 132* K 3.4* CL 98 CO2 24 BUN 5* CREAT 0.53 GLUCOSE 122* ALT 11 AST 15 Previous Hemoglobin A1C Results: HEMOGLOBIN A1C Date Value Ref Range Status 12/04/2017 8.3 (H) 4.0 - 6.0 % Final POC Glucose Range: Lab Results Component Value Date/Time GLUCPOC 155 (H) 12/05/2017 09:24 AM GLUCPOC 150 (H) 12/05/2017 03:55 AM GLUCPOC 132 (H) 12/04/2017 10:30 PM Lab Results Component Value Date/Time CHOLTOT 350 (H) 12/04/2017 08:23 PM HDL 12/04/2017 08:23 PM Comment: Measured HDL is not accurate when the Triglyceride value exceeds 1200. LDLCALC 12/04/2017 08:23 PM Comment: Calculated LDL is not accurate when the Triglyceride value exceeds 400. TRIGLYCERIDE 1,462 (H) 12/05/2017 07:23 AM Lab Results Component Value Date/Time NA 132 (L) 12/04/2017 08:23 PM K 3.4 (L) 12/04/2017 08:23 PM CL 98 12/04/2017 08:23 PM CO2 24 12/04/2017 08:23 PM CA 8.0 (L) 12/04/2017 08:23 PM BUN 5 (L) 12/04/2017 08:23 PM CREAT 0.53 12/04/2017 08:23 PM GLUCOSE 122 (H) 12/04/2017 08:23 PM TOTALPROTEIN 6.5 (L) 12/04/2017 08:23 PM ALBUMIN 4.0 12/04/2017 08:23 PM BILITOTAL 0.2 (L) 12/04/2017 08:23 PM ALKPHOS 58 12/04/2017 08:23 PM AST 15 12/04/2017 08:23 PM ALT 11 12/04/2017 08:23 PM ANIONGAP 10 12/04/2017 08:23 PM ASSESSMENT AND PLAN: Ms. Peña is a 42-year-old female here for evaluation of abdominal pain, nausea, vomiting in the setting of hypertriglyceridemia. Problem #1. Abdominal pain. She continues to have pain on exam. Her other related symptoms have improved. She continues to be n.p.o. It is possible if the symptoms are related to chylomychronemia syndrome. It is reassuring that her lipase and CT scan her abdomen are normal. GI does not feel that this represents pancreatitis. Problem #2. Severe hypertriglyceridemia. On admission her triglycerides exceeded 2000. Her recurrent admissions and persistently elevated triglycerides exceeding 1000 suggests some component of at least partial lipoprotein lipase deficiency. She has improved since being n.p.o. for 3 days. I would recommend at this point continue n.p.o. status. She is getting some maintenance IV fluids containing D5 I would continue these at a rate of about 50 cc/h to minimize the complications associated with prolonged fasting. I do not think that she needs pheresis for an insulin drip at this time since she does not have pancreatitis. Her triglycerides are trending down. Since admission she has been continued on her niacin. I would recommend restarting her fenofibrate at maximum dose and increasing her fish oil to 2 g twice daily. Please continue to trend her triglycerides daily. She should also have anutrition consult to discuss a strict low-fat low carbohydrate diet. Typically individuals with this degree of hypertriglyceridemia have some underlying secondary cause that is exacerbating the triglyceride elevation. And her, her poorly controlled diabetes is likely contributing. Her hypothyroidism may also be contributing to some degree. I do not see a urine protein analysis. It would be worth ruling out nephrotic syndrome in this patient with a spot urine protein creatinine. Problem #3. Hypothyroidism. Her TSH is elevated to 30. I would recommend increasing her levothyroxine dose to 200 mcg daily. This will need to be reassessed in about 6 weeks as an outpatient. The patient is clinically euthyroid. Problem #4. Hypocalcemia. I recommend repeating his lab tomorrow along with a vitamin D and PTH. Itis possible is some lab artifact in the setting of hypertriglyceridemia. The patient is asymptomatic at this time. Problem #5. Hyponatremia. This is likely artifact related to elevated triglycerides. Problem #6. Obesity. Given this patient's severe hypertriglyceridemia, she needs to consider serious lifestyle modifications to achieve weight loss. We discussed these at length during our visit. To start, I recommend nutrition consult. Problem #7. T2DM. Glucose control adequate at this time. Continue SSI for now. Recommendations were discussed with Dr. Yusuf. Please call [phone] with questions. Thank youfor this consult. Blake Rudd MD PhD * Lori Lea RN - 12/05/2017 10:23 AM CDTAssociated Order(s): IP CONSULT TO IV TEAM IV CONSULT: Request for IV consult. Reviewed electronic record and completed a vascular assessment. PIV startedand documented in [facility]. Recommend PIV for IVF's and IV meds. Bed in low position,HOB up 35 degrees,?? side rails up X2. Safety check completed. Vicki OLGUIN notified. ?? * Jose Rutherford MD - 12/05/2017 8:50 AM CDTAssociated Order(s): IP CONSULT TO GI Inpatient GI Consultation Note Patient: Casandra Jones / 42 y.o. / female : 1975 Date: 12/05/2017 CSN: [id number] Referring Physician:No ref. provider found PCP: No primary care provider on file. Reason for Consult: Hypertriglyceridemia pancreatitis History of Present Illness: Casandra Jones is a 42 y.o. female with a h/o hypothyroidism, depression, familial lipid disorder per pt, DM, and recurrent bouts of hypertriglyceridemia pancreatitis. June 2016 was her first bout of pancreatitis and she had plasmapheresis. She states she was in pain for 2 months. She was again hospitalized for hypertriglyceridemia pancreatitis in September and October 2017 at [facility] with plasmapheresis. She states her Lipase is never up and CT does not show i nflammation. Her pain improves after plasmapheresis and TG do fall. 12/03 she went to [facility] and TG were 2101. Lipase and CT scan were w/o acute changes. She reports she is taking fenofibrate regularly. She sees an thread clipper for her DM, but states they do not specialize in lipids. She saw GI while at [employer] and was suggested going to lipid clinic at [facility]. She also had an EGD within the last 2 months at [place] with negative findings for her pain. On Saturday she started having diarrhea. On Saturday she had nausea and on Saturday she had nausea, vomiting, and abdominal pain. Pain is upper w/o radiation. No Known Allergies Prescriptions Prior to Admission Medication Sig Dispense Refill Last Dose ??? traZODone (DESYREL) 50 mg tablet Take 50 mg by mouth daily at bedtime. ??? spironolactone (ALDACTONE) 25 mg tablet Take 25 mg by mouth daily. ??? rosuvastatin (CRESTOR) 20 mg tablet Take 20 mg by mouth daily at bedtime. ??? pantoprazole (PROTONIX) 40 mg Tablet, Delayed Release (E.C.) Take 40 mg by mouth daily. ??? Vhvld2-[id number]-M75-E-FA-Fish Oil [phone] [id number] Capsule Take 1 Caplet by mouth daily. ??? niacin (NIACOR) 500 mg tablet Take 500 mg by mouth 2 times daily. ??? metFORMIN (GLUCOPHAGE) 500 mg tablet Take 500 mg by mouth 2 times daily with meals. ??? magnesium oxide (MAG-OX) 400 mg tablet Take 400 mg by mouth daily. ??? LORazepam (ATIVAN) 1 mg tablet Take 1 mg by mouth 2 times daily as needed for Anxiety . ??? ejzrwpi-ptztax-hjjffamp DR (CREON 12) 60-12-38 capsule Take by mouth 3 times daily after meals. ??? insulin glargine (LANTUS) 100 unit/mL injection Inject by subcutaneous injection 28 units in a.m. And 38 units in HS . ??? fenofibrate nanocrystallized (TRICOR) 145 mg tablet Take 145 mg by mouth daily. ??? citalopram (CeleXA) 40 mg tablet Take 40 mg by mouth daily at bedtime. ??? levothyroxine 175 mcg tablet Take 175 mcg by mouth daily pinion staker. ??? [DISCONTINUED] levothyroxine 150 mcg tablet Take 150 mcg by mouth daily pinion staker. Past Medical History: Diagnosis Date ??? Depression ??? DM type 2 (diabetes mellitus, type 2) ??? GERD (gastroesophageal reflux disease) ??? HLD (hyperlipidemia) ??? Hypothyroidism No past surgical history on file. Family History Problem Relation Age of Onset ??? Diabetes Father ??? Diabetes Mother Social History Substance Use Topics ??? Smoking status: Current Every Day Smoker Packs/day: 0.50 Types: Cigarettes ??? Smokeless tobacco: Never Used ??? Alcohol use No Review of Systems: Ten of fourteen systems were reviewed. Pertinent positives are noted in the HPI. Gen: Denies fever/chills or changes in weight Neuro: Denies CORTES, paraesthesias ENT: Denies changes in vision, rhinitis CV: Denies CP, PND, orthopena Pulm: Denies SOB, productive cough or prior h/o VTE GI: See HPI MS: Denies arthralgais, myalgias Derm: Denies rashes or lesions. : Denies dysuria or hematuria Heme/Lymph: Denies night sweats, enlarged lymph nodes or abnormal bleeding Physical Exam: BP 100/64 (BP Location: Left arm, Patient Position (BP): Supine) Pulse 68 Temp 98 ??F (36.7 ??C) (Oral) Resp 18 Ht 5' 5 (1.651 m) Wt 91.2 kg (201 lb 1.6 oz) SpO2 94% ? No BMI 33.46 kg/m?? Intake/Output Summary (Last 24 hours) at 12/05/17928 Last data filed at 12/05/17 0338 Gross per 24 hour Intake 0 ml Output 450 ml Net -450 ml General: WD/WN. In NAD HEENT: sclera anicteric, conjunctiva pink, mucous membranes moist, oropharynx clear, hearing grossly normal Neck: supple, trachea midline, no thyromegaly or JVD Lungs: normal respiratory effort, CTAB, without wheezes, crackles or rhonchi Heart: S1S2, RRR, without murmur or gallop Abdomen: ND, +BS, soft, no pain while pressing with stethoscope, but epigastric tenderness with palpation, No HSM or palpable masses Skin: no jaundice, obvious rashes or lesions, warm to palpation Extremities: no cyanosis or edema, Neurologic/Psych: A&Ox3, grossly nonfocal, laying in bed holding a stuffed animal. Pertinent Labs: Lab Results Component Value Date/Time WBC 7.7 12/04/2017 08:23 PM HEMOGLOBIN 11.4 (L) 12/04/2017 08:23 PM HEMATOCRIT 34.3 (L) 12/04/2017 08:23 PM PLATELETS 208 12/04/2017 08:23 PM MCV 90.5 12/04/2017 08:23 PM Lab Results Component Value Date/Time SODIUM 132 (L) 12/04/2017 08:23 PM POTASSIUM 3.4 (L) 12/04/2017 08:23 PM CHLORIDE 98 12/04/2017 08:23 PM CO2 24 12/04/2017 08:23 PM CALCIUM 8.0 (L) 12/04/2017 08:23 PM BUN 5 (L) 12/04/2017 08:23 PM CREATININE 0.53 12/04/2017 08:23 PM GLUCOSE 122 (H) 12/04/2017 08:23 PM TOTAL PROTEIN 6.5 (L) 12/04/2017 08:23 PM ALBUMIN 4.0 12/04/2017 08:23 PM BILIRUBIN TOTAL 0.2 (L) 12/04/2017 08:23 PM ALKALINE PHOSPHATASE 58 12/04/2017 08:23 PM AST 15 12/04/2017 08:23 PM ALT 11 12/04/2017 08:23 PM ANION GAP 10 12/04/2017 08:23 PM No results found for: INR, PT, PROTIMEPOC Pertinent Imaging: CT 12/03 with contrast IV 1. Bilateral ovarian cysts 2. Chronic trace perisplenic fluid 3. Hepatic steatosis Impression/Plan: Mrs. Jones is a 42 y/o female with hypertriglyceridemia that was transferred from [facility] with presumed hypertriglyceridemia pancreatitis. She has c/o epigastric pain when her TG are elevated and improves after plasmapheresis. She has had plasmapheresis 3 times in the past. She reports compliance with fenofibrate. Lipase and CT scan do not suggest pancreatitis. Agree with endocrinologyconsult. I have discussed this case with Dr. Rutherford. Thank you very much for this consultation. Hedy Mullins PA-C [facility] [phone] CC: No ref. provider found , No primary care provider on file. I have seen and examined the patient and chart was reviewed. I have reviewed the note as entered and agree with the assessment and plan with notable amendments, if any, mentioned below. I also performed the critical or santos portion(s) of the service as documented, and was directly involved in the management of the patient and supervised the care provided. I have seen and examined the patient and agree with the above assessment by Candido Velarde. A&O x 3 Anicteric Abd - soft, mod tend to palp at epigastrium, no rebound, mild guarding. Impression: 1. Epigastric pain. Reportedly from pancreatitis associated with elevated triglycerides. She has responded to plasmapheresis in the past. Recent EGD was unremarkable, so I see no reason to repeat. Reasonable to address hypertriglyceridemia. - Would have endocrinology see, and I defer decision to proceed with plasmapheresis to them. Will sign off. Call with any further questions. Jose Rutherford MD documented in this encounter Miscellaneous Notes * Care Plan - Puja Fonseca RN - 12/10/2017 1:05 PM CDT Casandra Jones will be discharged via ambulatory to home. Casandra Jones is accompanied by spouse and will be transported via private vehicle. IV was removed. Reviewed discharge instructions with patient and and they verbalized understanding. Pt developed a rash all over extremities and neck this morning. Physician aware, Benadryl given and rash now went away. Prescriptions filled at [facility] and delivered to patient'sroom. * Care Plan - Yamil Gonzalez RN - 12/10/2017 6:29 AM CDT -Pt had some complaint of abdominal pain this shift. [place] given x1 about 0500. -IVF infusing throughout shift -Pt had complaint of nausea this shift -Pt given ativan x1 -Pt appeared to rest/sleep between care * Care Plan - Yamil Gonzalez RN - 12/09/2017 6:11 AM CDT -Pt had consistent abdominal pain of 7-8 this shift. IV morphine given x2, PO norco given x1 this AM. Informed pt that per Dr. Altman she is to be transitioning to PO pain medications. Pt stated she understood -IVF infusing this shift -Pt given compazine x1 this shift with stated relief. -Q4 accu checks, pt given 1 unit of SSI at 0430 -Pt appeared to sleep between care * Care Plan - Savana Leon RN - 12/08/2017 4:43 PM CDT Pt has been independent in the room this shift but remains on fall precautions d/t the frequency ofIV pain medication she is getting. Tolerating clear liquids and was advanced to full lquids for lunch. Did have small amount of nausea with lunch; made mention that it might be the dairy. Received IVcompazine. Walked in the halls this afternoon with her SO. * Care Plan - Unique Weaver RN - 12/08/2017 7:47 AM CDT Patient resting quietly and sleeping between care. Patient remains afebrile. Patient given prn Morphine multiple times overnight for complaints of back pain. Patient tolerating clear liquid diet without and complaints of nausea or vomiting. High fall precautions in place. * Care Plan - Savana Leon RN - 12/07/2017 5:18 PM CDT Pt has been c/o abd pain throughout the shift and requiring IV Morphine frequently. Is able to walkindependently in the room. Is slowly starting clear liquids this evening and kept down beef broth. * Care Plan - Unique Weaver RN - 12/07/2017 8:51 AM CDT Patient resting quietly and sleeping between care. Patient remains afebrile.Patient given Morphine once overnight for complaints of abdominal pain with relief. Patient remains NPO except for sips with medications. IVF infusing. High fall precautions in place. * Care Plan - Reese Wilson RN - 12/06/2017 6:08 PM CDT Pt had c/o of upper left abdomen pain; morphine given q2hrs. Pt getting relief from pain medication. Pt c/o of nausea this evening and was given compazine with relief. Cont to check BG q4 hours; BG stable throughout the day. Pt NPO with no complaints. * Care Plan - Christina Maldonado RN - 12/06/2017 10:31 AM CDT Initial Discharge Planning Assessment completed. Introductory Care Management letter given. Care Management visited with patient, and discussed Care Management role and discharge planning. Prior to admission, patient's functional level was independent. Patient lives with her José Miguel in a single story house. Durable medical equipment at home includes a glucometer Patient has not had a stay at an acute care hospital in the last 30 days. Primary Emergency Contact: José Miguel Bryansergio PCP verified as [facility], External Provider. [facility] in [place], [place]. Patient's insurance verified as Payor: AMY / Plan: OUT OF STATE BLUE PREFERRED / Product Type: Blue Cross / The patient's preferred pharmacy is [facility] in [place], [place]. Discussed discharge goals and possible discharge needs including medical follow up. Care Management contact information provided. Care Management will continue to follow and assist asneeded. Christina Maldonado RN, MSN,[facility] Hair Blender [facility] [phone] (gjtv) [phone] (office) Discharge Planning ??? Identify discharge needs upon admission and through discharge Progressing * Care Plan - Jigna Martinez RN - 12/06/2017 7:06 AM CDT Pt had c/o abdominal pain this shift. Morphine given per JUN. Blood sugars stable. BP tends to run low. Pt has been sleeping between care, call light within reach. * Care Plan - Alize Muñoz RN - 12/05/2017 6:45 AM CDT Casandra complained of pain in her abdomen, relieved with morphine. She was also complaining of nausea,compazine given per JUN. Pt has been NPO. Tolerating fluids. IV consult placed for new IV. No issues overnight, sleeping between care. * Care Plan - Genoveva Mena RN - 12/04/2017 6:16 PM CDT Undress and Assess performed by: GENOVEVA OLGUINrental counter clerk or upon transfer to: [facility] ~~~~~~~~~~~~~~~~~~~~~~~~~~~~ Is the patient a paraplegic/quadriplegic? Does [...] with the following belongings/valuables:(ie:dentures, hearing aids, glasses): cell phone, climatology teacher, stuffed animal and bag of clothing Patient arrived to this room with the following medical equipment/devices (ie: insulin pump, home CPAP, walker): none All Jewelry removed from patient none Disposition of belongings/valuables: extra bag and purse sent with . Casandra arrives to room 6347 w/ c/o abdominal pain rating 8/10, pageseema. Assessment complete. Pt stable at this time w/ family at bedside. VSS, pt oriented to cargivers, phone system and call light. documented in this encounter Plan of Treatment Upcoming Encounters Date Type Department Care Team (Late st Contact Info) Description 09/14/2024 3:00 PM CDT Office Visit [facility] - [place] [id number] [place] [address] Marlys Mayer MD [address] [place], [place] [id number] documented as of this encounter Procedures Procedure Name Priority Date/Time Associated Diagnosis Comments POC GLUCOSE Routine 12/10/2017 8:33 AM CDT TRIGLYCERIDE Routine 12/10/2017 8:32 AM CDT POC GLUCOSE Routine 12/10/2017 4:38 AM CDT POC GLUCOSE Routine 12/10/2017 1:31 AM CDT POC GLUCOSE Routine 12/09/2017 8:38 PM CDT POC GLUCOSE Routine 12/09/2017 5:19 PM CDT POC GLUCOSE Routine 12/09/2017 12:46 PM CDT POC GLUCOSE Routine 12/09/2017 8:13 AM CDT TRIGLYCERIDE Routine 12/09/2017 6:00 AM CDT POC GLUCOSE Routine 12/09/2017 4:01 AM CDT POC GLUCOSE Routine 12/09/2017 12:08 AM CDT POC GLUCOSE Routine 12/08/2017 8:23 PM CDT POC GLUCOSE Routine 12/08/2017 5:09 PM CDT POC GLUCOSE Routine 12/08/2017 1:41 PM CDT POC GLUCOSE Routine 12/08/2017 8:31 AM CDT TRIGLYCERIDE Routine 12/08/2017 7:52 AM CDT BASIC METABOLIC PANEL Routine 12/08/2017 7:52 AM CDT POC GLUCOSE Routine 12/08/2017 4:19 AM CDT POC GLUCOSE Routine 12/08/2017 12:28 AM CDT POC GLUCOSE Routine 12/07/2017 8:51 PM CDT POC GLUCOSE Routine 12/07/2017 5:37 PM CDT POC GLUCOSE Routine 12/07/2017 12:15 PM CDT POC GLUCOSE Routine 12/07/2017 7:55 AM CDT CBC WITH DIFFERENTIAL Routine 12/07/2017 7:14 AM CDT TRIGLYCERIDE Routine 12/07/2017 7:14 AM CDT BASIC METABOLIC PANEL Routine 12/07/2017 7:14 AM CDT POC GLUCOSE Routine 12/07/2017 4:58 AM CDT POC GLUCOSE Routine 12/07/2017 12:27 AM CDT PROTEIN , RANDOM URINE Routine 8 8:21 PM CDT POC GLUCOSE Routine 12/06/2017 8:15 PM CDT POC GLUCOSE Routine 12/06/2017 4:53 PM CDT POC GLUCOSE Routine 12/06/2017 12:09 PM CDT POC GLUCOSE Routine 12/06/2017 8:34 AM CDT TRIGLYCERIDE Routine 12/06/2017 6:56 AM CDT POC GLUCOSE Routine 12/06/2017 5:47 AM CDT POC GLUCOSE Routine 12/06/2017 1:40 AM CDT POC GLUCOSE Routine 12/05/2017 9:45 PM CDT POC GLUCOSE Routine 12/05/2017 5:11 PM CDT POC GLUCOSE Routine 12/05/2017 1:48 PM CDT POC GLUCOSE Routine 12/05/2017 9:24 AM CDT TRIGLYCERIDE Routine 12/05/2017 7:23 AM CDT CALCIUM IONIZED Routine 12/05/2017 7:23 AM CDT POC GLUCOSE Routine 12/05/2017 3:55 AM CDT POC GLUCOSE Routine 12/04/2017 10:30 PM CDT LACTIC ACID Stat 12/04/2017 8:23 PM CDT CBC WITH DIFFERENTIAL Stat 12/04/2017 8:23 PM CDT SEDIMENTATION RATE Routine 12/04/2017 8: 23 PM CDT C-REACTIVE PROTEIN Routine 12/04/2017 8: 23 PM CDT TSH Routine 12/04/2017 8:23 PM CDT LIPASE Stat 12/04/2017 8:23 PM CDT HEMOGLOBIN A1C Routine 12/04/2017 8:23 PM CDT LIPID PANEL Stat 12/04/2017 8:23 PM CDT COMPREHENSIVE METABOLIC PANEL Stat 12/04/2017 8:23 PM CDT documented in this encounter Results * (ABNORMAL) POC GLUCOSE (12/10/2017 8:33 AM CDT) GLUCOSE POC 154(H) 74 - 99 mg/dL 12/10/2017 8:52 AM CDT [facility] LABORATORY [facility] COMMENT, GLU POC Notified RN/MD 12/10/2017 8:52 AM CDT [facility] LABORATORY [facility] SENIOR PORTFOLIO MANAGER NAME POC LUCAS HENLEY 12/10/2017 8:52 AM CDT [facility] Whole blood specimen (specimen) 12/10/2017 8:33 AM CDT 12/10/2017 8:52 AM CDT Odette Che MD POINT OF CARE TESTIN G [facility]# [id number] [address] [place] [address] [place] [address] * (ABNORMAL) TRIGLYCERIDE (12/10/2017 8:32 AM CDT) TRIGLYCERIDE 700(H) <150 mg/dL 12/10/2017 9:43 AM CDT [facility] Blood Venipuncture / Unknown 12/10/2017 8:32 AM CDT 12/10/2017 8:55 AM CDT Narrative [facility] LABORATORY [facility] - 12/10/2017 9:43 AM CDT TRIGLYCERIDES ? mg/dL Normal ?< 150 Borderline High ?150 - 199 High ? 200 - 499 Very High ? >= 500 Based on AHA/NCEP Guidelines. Angie Louis MD CHEMISTRY ORDERABLES Performing Organization Address [facility] Co de Phone Number [facility]# [id number] [address] [place] [address] * (ABNORMAL) POC GLUCOSE (12/10/2017 4:38 AM CDT) GLUCOSE POC 142(H) 74 - 99 mg/dL 12/10/2017 4:54 AM CDT [facility] COMMENT, GLU POC Notified RN/MD 12/10/2017 4:54 AM CDT [facility] SENIOR PORTFOLIO MANAGER NAME POC MYRTLE WHITNEY MIKE 12/10/2017 4:54 AM CDT [facility] Whole blood specimen (specimen) 12/10/2017 4:38 AM CDT 12/10/2017 4:54 AM CDT Odette Che MD POINT OF CARE TESTJERONIMO Serrano Performing Organization Address [facility] de Phone Number [facility]# [id number] [address] [place] [address] * (ABNORMAL) POC GLUCOSE (12/10/2017 1:31 AM CDT) GLUCOSE POC 136(H) 74 - 99 mg/dL 12/10/2017 1:49 AM CDT [facility] LAB[facility] SENIOR PORTFOLIO MANAGER NAME POC YAMIL GONZALEZ 12/10/2017 1:49 AM CDT [facility] Whole blood specimen (specimen) 12/10/2017 1:31 AM CDT 12/10/2017 1:49 AM CDT Odette Che MD POINT OF CARE TESTJERONIMO Serrano [facility] LABORATORY SERVICES - [facility] CLIA# [id number] [address] [place] [address] * (ABNORMAL) POC GLUCOSE (12/09/2017 8:38 PM CDT) GLUCOSE POC 135(H) 74 - 99 mg/dL 12/09/2017 8:52 PM CDT [facility] LABORATORY SERVICES - [facility] SENIOR PORTFOLIO MANAGER NAME POC AFUA BURROWS 12/09/2017 8:52 PM CDT [facility] LABORATORY SERVICES - [facility] Whole blood specimen (specimen) 12/09/2017 8:38 PM CDT 12/09/2017 8:52 PM CDT Odette Che MD POINT OF CARE TESTJERONIMO Maggie Performing Organization Address [facility]/ZIP Co de Phone Number [facility] LABORATORY SERVICES [facility] CLIA# [id number] [address] [place] [address] * (ABNORMAL) POC GLUCOSE (12/09/2017 5:19 PM CDT) GLUCOSE POC 141(H) 74 - 99 mg/dL 12/09/2017 5:33 PM CDT [facility] LABORATORY SERVICES - [facility] COMMENT, GLU POC Notified RN/MD 12/09/2017 5:33 PM CDT [facility] LABORATORY SERVICES - [facility] SENIOR PORTFOLIO MANAGER NAME POC AYLA FENG 12/09/2017 5:33 PM CDT [facility] LABORATORY SERVICES - [facility] Whole blood specimen (specimen) 12/09/2017 5:19 PM CDT 12/09/2017 5:33 PM CDT Odette Che MD POINT OF CARE TESTJERONIMO Maggie [facility] LABORATORY SERVICES [facility] CLIA# [id number] [address] [place] [address] * (ABNORMAL) POC GLUCOSE (12/09/2017 12:46 PM CDT) GLUCOSE POC 128(H) 74 - 99 mg/dL 12/09/2017 1:01 PM CDT [facility] LABORATORY SERVICES - [facility] COMMENT, GLU POC Notified RN/ 12/09/2017 1:01 PM CDT [facility] LABORATORY SERVICES - [facility] SENIOR PORTFOLIO MANAGER NAME AYLA ALARCON 12/09/2017 1:01 PM CDT [facility] LABORATORY SERVICES - [facility] Whole blood specimen (specimen) 12/09/2017 12:46 PM CDT 12/09/2017 1:01 PM CDT Odette Che MD POINT OF CARE TESTIN G [facility]Brev [facility] CLIA# [id number] [address] [place] [address] * (ABNORMAL) POC GLUCOSE (12/09/2017 8:13 AM CDT) GLUCOSE POC 134(H) 74 - 99 mg/dL 12/09/2017 11:32 AM CDT [facility] LABORATORY SERVICES - [facility] COMMENT, GLU POC Notified RN/ 12/09/2017 11:32 AM CDT [facility] LABORATORY SERVICES - [facility] SENIOR PORTFOLIO MANAGER NAME POC AYLA FENG 12/09/2017 11:32 AM CDT [facility] LABORATORY SERVICES [facility] Whole blood specimen (specimen) 12/09/2017 8:13 AM CDT 12/09/2017 11:32 AM CDT Odette Che MD POINT OF CARE TESTIN G [facility]rev [facility] CLIA# [id number] [address] [place] [address] [address] * (ABNORMAL) TRIGLYCERIDE (12/09/2017 6:00 AM CDT) TRIGLYCERIDE 763(H) <150 mg/dL 12/09/2017 7:16 AM CDT [facility] LABORATORY [facility] Blood Venipuncture / Unknown 12/09/2017 6:00 AM CDT 12/09/2017 6:22 AM CDT Narrative [facility] LABORATORY [facility] - 12/09/2017 7:16 AM CDT TRIGLYCERIDES ? mg/dL Normal ?< 150 Borderline High ?150 - 199 High ? 200 - 499 Very High ? >= 500 Based on AHA/NCEP Guidelines. Angie Louis MD CHEMISTRY ORDERABLES Performing Organization Address [facility]/ZIP Co de Phone Number [facility]# [id number] [address] [place] [address] * (ABNORMAL) POC GLUCOSE (12/09/2017 4:01 AM CDT) GLUCOSE POC 143(H) 74 - 99 mg/dL 12/09/2017 7:22 AM CDT [facility] SENIOR PORTFOLIO MANAGER NAME POC DONALDO HINOJOSA 12/09/2017 7:22 AM CDT [facility] Whole blood specimen (specimen) 12/09/2017 4:01 AM CDT 12/09/2017 7:22 AM CDT Odette Che MD POINT OF CARE TESTIN G Performing Organization Address [facility]/ZIP Co de Phone Number [facility]rev [facility]# [id number] [address] [place] [address] * (ABNORMAL) POC GLUCOSE (12/09/2017 12:08 AM CDT) GLUCOSE POC 124(H) 74 - 99 mg/dL 12/09/2017 12:21 AM CDT [facility]USHard[facility] SENIOR PORTFOLIO MANAGER NAME POC MELINA YAMIL 12/09/2017 12:21 AM CDT [employer] LABORATORY SERVICES [facility] Whole blood specimen (specimen) 12/09/2017 12:08 AM CDT 12/09/2017 12:21 AM CDT Odette Che MD POINT OF CARE TESTIN G [facility] LABORATORY SERVICES [facility] CLIA# [id number] [address] [place] [address] * (ABNORMAL) POC GLUCOSE (12/08/2017 8:23 PM CDT) GLUCOSE POC 137(H) 74 - 99 mg/dL 12/09/2017 2:21 AM CDT [facility] LABORATORY SERVICES [facility] SENIOR PORTFOLIO MANAGER NAME POC DONALDO HINOJOSA 12/09/2017 2:21 AM CDT [facility] LAB[facility]AT[facility] SERVICES [facility] Whole blood specimen (specimen) 12/08/2017 8:23 PM CDT 12/09/2017 2:21 AM CDT Odette Che MD POINT OF CARE TESTIN Maggie Performing Organization Address [facility]/ZIP Co de Phone Number [facility] CLIA# [id number] [address] [place] [address] * (ABNORMAL) POC GLUCOSE (12/08/2017 5:09 PM CDT) GLUCOSE POC 143(H) 74 - 99 mg/dL 12/08/2017 5:23 PM CDT [facility] LABORATORY SERVICES [facility] SENIOR PORTFOLIO MANAGER NAME POC SAVANA LEON 12/08/2017 5:23 PM CDT [facility] LAB[facility] SERVICES [facility] Whole blood specimen (specimen) 12/08/2017 5:09 PM CDT 12/08/2017 5:23 PM CDT Odette Che MD POINT OF CARE TESTIN G [facility] LABORATORY SERVICES [facility] CLIA# [id number] [address] [place] [address] * (ABNORMAL) POC GLUCOSE (12/08/2017 1:41 PM CDT) GLUCOSE POC 140(H) 74 - 99 mg/dL 12/08/2017 1:54 PM CDT [facility] LABORATORY [facility] SENIOR PORTFOLIO MANAGER NAME POC SAVANA LEON 12/08/2017 1:54 PM CDT [facility] LABORATORY SERVICES [facility] Whole blood specimen (specimen) 12/08/2017 1:41 PM CDT 12/08/2017 1:54 PM CDT Odette Che MD POINT OF CARE TESTIN G Performing Organization Address [facility] Co de Phone Number [facility] LABORATORY [facility] CLIA# [id number] [address] [place] [address] * (ABNORMAL) POC GLUCOSE (12/08/2017 8:31 AM CDT) GLUCOSE POC 116(H) 74 - 99 mg/dL 12/08/2017 8:54 AM CDT [facility] LABORATORY SERVICES - [facility] COMMENT, GLU POC Notified RN/MD 12/08/2017 8:54 AM CDT [facility] LABORATORY SERVICES [facility] SENIOR PORTFOLIO MANAGER NAME POC COREY GARVEY 12/08/2017 8:54 AM CDT [facility] LABORATORY SERVICES [facility] Whole blood specimen (specimen) 12/08/2017 8:31 AM CDT 12/08/2017 8:54 AM CDT Stephanie aBbin MD POINT OF CARE T ESTING [facility] LABORATORY [facility] CLIA# [id number] [address] [place] [address] * (ABNORMAL) TRIGLYCERIDE (12/08/2017 7:52 AM CDT) TRIGLYCERIDE 914(H) <150 mg/dL 12/08/2017 9:08 AM CDT [employer] LABORATORY SERVICES - [facility] Blood Venipuncture / Unknown 12/08/2017 7:52 AM CDT 12/08/2017 8:10 AM CDT Located Within [facility] [employer] LABORATORY SERVICES - [facility] - 12/08/2017 9:08 AM CDT TRIGLYCERIDES ? mg/dL Normal ?< 150 Borderline High ?150 - 199 High ? 200 - 499 Very High ? >= 500 Based on AHA/NCEP Guidelines. Angie Louis MD CHEMISTRY ORDERABLES [facility] LABORATORY SERVICES [facility]# [id number] [address] [place] [address] * (ABNORMAL) BASIC METABOLIC PANEL (12/08/2017 7:52 AM CDT) SODIUM 136 136 - 145 mmol/L 12/08/2017 8:52 AM T [employer] LABORATORY SERVICES - [facility] POTASSIUM 4.0 3.5 - 5.0 mmol/L 12/08/2017 8:52 AM T [employer] LABORATORY SERVICES - . [facility] CHLORIDE 100 98 - 107 mmol/L 12/08/2017 8:52 AM T [employer] LABORATORY SERVICES - . [facility] CO2 26 22 - 29 mmol/L 12/08/2017 8:52 AM CDT [employer] LABORATORY SERVICES - . [facility] CALCIUM 9.1 8.6 - 10.2 mg/dL 12/08/2017 8:52 AM T [employer] LABORATORY SERVICES - [facility] BUN 3(L) 6 - 20 mg/dL 12/08/2017 8:52 AM T [employer] LABORATORY SERVICES - . [facility] CREATININE 0.69 0.51 - 0.95 mg/dL 12/08/2017 8:52 AM T [employer] LABORATORY SERVICES - . [facility] GLUCOSE 116(H) 74 - 99 mg/dL 12/08/2017 8:52 AM CDT [employer] LABORATORY SERVICES - . [facility] GFR >60 >=60 mL/min/1.7 3 sq meter 12/08/2017 8:52 AM T [facility]rev [facility] Comment: eGFR has not been validated for [...] GFR, >60 >=60 mL/min/1.7 3 sq meter 12/08/2017 8:52 AM [facility] ANION GAP 10 8 - 16 mmol/L 12/08/2017 8:52 AM [facility] Blood Venipuncture / Unknown 12/08/2017 7:52 AM CDT 12/08/2017 8:10 AM CDT Stephanie Babin MD CHEMISTRY ORDER OSVALDO [facility] B2Brev [facility]# [id number] [address] [facility] [address] [place] [address] * (ABNORMAL) POC GLUCOSE (12/08/2017 4:19 AM CDT) [facility] Signature GLUCOSE POC 119(H) 74 - 99 mg/dL 12/08/2017 5:02 AM CDT [facility] LABORATORY [facility] COMMENT, GLU POC Notified RN/MD 12/08/2017 5:02 AM CDT [facility] SENIOR PORTFOLIO MANAGER NAME POC MYRTLE WHITNEY FRANKSN 12/08/2017 5:02 AM CDT [facility] Whole blood specimen (specimen) 12/08/2017 4:19 AM CDT 12/08/2017 5:02 AM CDT Stephanie Babin MD POINT OF CARE T ESTING Performing Organization Address [facility]/ZIP Co de Phone Number [id number] [address] [place] [address] * (ABNORMAL) POC GLUCOSE (12/08/2017 12:28 AM CDT) GLUCOSE POC 146(H) 74 - 99 mg/dL 12/08/2017 2:47 AM CDT [facility] LABORATORY SERVICES - [facility] COMMENT, GLU POC Notified RN/MD 12/08/2017 2:47 AM CDT [facility] LABORATORY SERVICES - [facility] SENIOR PORTFOLIO MANAGER NAME POC WHITNEY IRAHETA 12/08/2017 2:47 AM CDT [facility] LABORATORY SERVICES [facility] Whole blood specimen (specimen) 12/08/2017 12:28 AM CDT 12/08/2017 2:47 AM CDT Stephanie Babin MD POINT OF CARE T ESTING Performing Organization Address [facility]/ZIP Co de Phone Number [facility] [id number] [address] [place] [address] * (ABNORMAL) POC GLUCOSE (12/07/2017 8:51 PM CDT) GLUCOSE POC 120(H) 74 - 99 mg/dL 12/07/2017 9:32 PM CDT [facility] LABORATORY SERVICES [facility] SENIOR PORTFOLIO MANAGER NAME POC UNIQUE WEAVER 12/07/2017 9:32 PM CDT [facility] LABORATORY SERVICES [facility] Whole blood specimen (specimen) 12/07/2017 8:51 PM CDT 12/07/2017 9:32 PM CDT Stephanie Babin MD POINT OF CARE T ESTING [facility] LABORATORY [facility] CLIA# [id number] [address] [place] [address] * (ABNORMAL) POC GLUCOSE (12/07/2017 5:37 PM CDT) GLUCOSE POC 113(H) 74 - 99 mg/dL 12/07/2017 5:51 PM CDT [facility] LABORATORY SERVICES [facility] SENIOR PORTFOLIO MANAGER NAME POC SAVANA LEON 12/07/2017 5:51 PM CDT [facility] LABORATORY SERVICES [facility] Whole blood specimen (specimen) 12/07/2017 5:37 PM CDT 12/07/2017 5:51 PM CDT Stephanie Babin MD POINT OF CARE T ESTING [facility] B2Brev [facility] CLIA# [id number] [address] [place] [address] * (ABNORMAL) POC GLUCOSE (12/07/2017 12:15 PM CDT) GLUCOSE POC 111(H) 74 - 99 mg/dL 12/07/2017 12:27 PM CDT [facility] LABORATORY [facility] SENIOR PORTFOLIO MANAGER NAME POC ROSALVA BROWN 12/07/2017 12:27 PM CDT [facility] LABORATORY SERVICES [facility] Whole blood specimen (specimen) 12/07/2017 12:15 PM CDT 12/07/2017 12:27 PM CDT Stephanie Babin MD POINT OF CARE T ESTING [facility] B2Brev [facility] CLIA# [id number] [address] [place] [address] * (ABNORMAL) POC GLUCOSE (12/07/2017 7:55 AM CDT) GLUCOSE POC 126(H) 74 - 99 mg/dL 12/07/2017 8:33 AM CDT [facility] LABORATORY SERVICES [facility] SENIOR PORTFOLIO MANAGER NAME POC SHIVANI BROWNINE 12/07/2017 8:33 AM CDT [facility] LABORATORY [facility] Whole blood specimen (specimen) 12/07/2017 7:55 AM CDT 12/07/2017 8:33 AM CDT Stephanie Babin MD POINT OF CARE T ESTING Performing Organization Address [facility] Co de Phone Number [facility]Brev [facility]# [id number] [address] [place] [address] * (ABNORMAL) TRIGLYCERIDE (12/07/2017 7:14 AM CDT) TRIGLYCERIDE 1,058(H) <150 mg/dL 12/07/2017 8:19 AM CDT [facility]Brev [facility] Blood Venipuncture / Unknown 12/07/2017 7:14 AM CDT 12/07/2017 7:18 AM CDT Narrative [facility]rev [facility] - 12/07/2017 8:19 AM CDT TRIGLYCERIDES ? mg/dL Normal ?< 150 Borderline High ?150 - 199 High ? 200 - 499 Very High ? >= 500 Based on AHA/NCEP Guidelines. Angie Louis MD CHEMISTRY ORDERABLES Performing Organization Address [facility] de Phone Number [facility]# [id number] [address] [place] [address] * (ABNORMAL) BASIC METABOLIC PANEL (12/07/2017 7:14 AM CDT) SODIUM 136 136 - 145 mmol/L 12/07/2017 7:56 AM CDT [facility] LABORATORY SERVICES [facility] POTASSIUM 3.8 3.5 - 5.0 mmol/L 12/07/2017 7:56 AM CDT [facility] LABORATORY [facility] CHLORIDE 99 98 - 107 mmol/L 12/07/2017 7:56 AM CDT [facility] LABORATORY SERVICES - [facility] CO2 22 22 - 29 mmol/L 12/07/2017 7:56 AM [facility] LABORATORY SERVICES - . [facility] CALCIUM 9.1 8.6 - 10.2 mg/dL 12/07/2017 7:56 AM [facility] LABORATORY [facility] - . [facility] BUN 3(L) 6 - 20 mg/dL 12/07/2017 7:56 AM [facility] LABORATORY [facility] - . [facility] CREATININE 0.56 0.51 - 0.95 mg/dL 12/07/2017 7:56 AM [facility] LABORATORY [facility] - . [facility] GLUCOSE 119(H) 74 - 99 mg/dL 12/07/2017 7:56 AM [facility] LABORATORY [facility] - [facility] GFR >60 >=60 mL/min/1.7 3 sq meter 12/07/2017 7:56 AM [facility] LABORATORY [facility] - [facility] Comment: eGFR [...] GFR, >60 >=60 mL/min/1.7 3 sq meter 12/07/2017 7:56 AM [facility] LABORATORY SERVICES - [facility] ANION GAP 15 8 - 16 mmol/L 12/07/2017 7:56 AM [facility] LABORATORY [facility] - [facility] Blood Venipuncture / Unknown 12/07/2017 7:14 AM CDT 12/07/2017 7:18 AM CDT Uzma Yusuf MD CHEMISTRY ORDER OSVALDO [facility] B2Brev [facility] CLIA# [id number] [address] [facility] [address] [address] * (ABNORMAL) CBC WITH DIFFERENTIAL (12/07/2017 7:14 AM CDT) WBC 7.1 4.0 - 9.8 K/uL 12/07/2017 7:29 AM CDT [employer] LABORATORY SERVICES - [facility] RBC 3.82(L) 3.90 - 4.90 M/uL 12/07/2017 7:29 AM CDT [employer] LABORATORY SERVICES - [facility] HEMOGLOBIN 11.6(L) 11.8 - 14.8 g/dL 12/07/2017 7:29 AM CDT [employer] LABORATORY SERVICES - [facility] HEMATOCRIT 34.9(L) 35.5 - 44.0 % 12/07/2017 7:29 AM CDT [employer] LABORATORY SERVICES - [facility] MCV 91.4 82.0 - 99.0 fL 12/07/2017 7:29 AM CDT [employer] LABORATORY SERVICES - [facility] MCH 30.4 27.2 - 32.6 pg 12/07/2017 7:29 AM CDT [employer] LABORATORY SERVICES - [facility] MCHC 33.2 31.5 - 35.5 g/dL 12/07/2017 7:29 AM CDT [employer] LABORATORY SERVICES - [facility] RDW 14.7(H) 11.5 - 14.5 % 12/07/2017 7:29 AM CDT [employer] LABORATORY SERVICES - [facility] RDW-STDEV 49.4(H) 37.1 - 48.7 fL 12/07/2017 7:29 AM CDT [employer] LABORATORY SERVICES - [facility] PLATELETS 181 140 - 350 K/uL 12/07/2017 7:29 AM CDT [employer] LABORATORY SERVICES - [facility] MPV 9.3 9.3 - 12.4 fL 12/07/2017 7:29 AM CDT [employer] LABORATORY SERVICES - . [facility] NEUTROPHILS 65 % 12/07/2017 7:29 AM CDT [employer] LAB[facility]ATORY SERVICES [facility] LYMPHOCYTES 27 % 12/07/2017 7:29 AM CDT [employer] LABORATORY SERVICES - [facility] MONOCYTES 5 % 12/07/2017 7:29 AM CDT [employer] LABORATORY SERVICES - [facility] EOSINOPHILS 2 % 12/07/2017 7:29 AM CDT [employer] LABORATORY SERVICES - . [facility] BASOPHILS 1 % 12/07/2017 7:29 AM CDT [employer] LABORATORY SERVICES - . [facility] IMMATURE GRANULOCYTES 0 % 12/07/2017 7:29 AM CDT [employer] LABORATORY SERVICES - . [facility] NEUTROPHIL ABSOLUTE 4.61 1.90 - 7.00 K/uL 12/07/2017 7:29 AM CDT [employer] LABORATORY SERVICES - . [facility] LYMPHOCYTE ABSOLUTE 1.93 0.70 - 4.50 K/uL 12/07/2017 7:29 AM CDT [facility] LABORATORY SERVICES - . [facility] MONOCYTE ABSOLUTE 0.38 0.10 - 1.30 K/uL 12/07/2017 7:29 AM CDT [employer] LABORATORY SERVICES - [facility] EOSINOPHIL ABSOLUTE 0.13 0.00 - 0.70 K/uL 12/07/2017 7:29 AM CDT [employer] LABORATORY SERVICES - [facility] BASOPHILS ABSOLUTE 0.05 0.00 - 0.20 K/uL 12/07/2017 7:29 AM CDT [facility] LABORATORY SERVICES - . [facility] IMMATURE GRANULOCYTES ABSOLUTE 0.03 0.00 - 0.03 K/uL 12/07/2017 7:29 AM CDT [employer] LABORATORY SERVICES - [facility] Blood Venipuncture / Unknown 12/07/2017 7:14 AM CDT 12/07/2017 7:18 AM CDT Uzma Yusuf MD HEMATOLOGY YONI SERRANO [facility] [employer] [facility]# [id number] [address] [facility] [address] [place] [address] * (ABNORMAL) POC GLUCOSE (12/07/2017 4:58 AM CDT) [facility] Signature GLUCOSE POC 105(H) 74 - 99 mg/dL 12/07/2017 5:22 AM CDT [employer] LABORATORY SERVICES - [facility] SENIOR PORTFOLIO MANAGER NAME POC MYRTLE WHITNEY FRANKSN 12/07/2017 5:22 AM CDT [employer] LABORATORY SERVICES - [facility] Whole blood specimen (specimen) 12/07/2017 4:58 AM CDT 12/07/2017 5:22 AM CDT Uzma Yusuf MD POINT OF CARE T [place] [facility] [employer] [facility]# [id number] [address] [place] [address] * (ABNORMAL) POC GLUCOSE (12/07/2017 12:27 AM CDT) GLUCOSE POC 109(H) 74 - 99 mg/dL 12/07/2017 12:42 AM CDT [facility] [employer] [facility] COMMENT, GLU POC Notified RN/MD 12/07/2017 12:42 AM CDT [facility] LABORATORY [facility] SENIOR PORTFOLIO MANAGER NAME POC WHITNEY IRAHETA 12/07/2017 12:42 AM CDT [facility] [employer] [facility] Whole blood specimen (specimen) 12/07/2017 12:27 AM CDT 12/07/2017 12:42 AM CDT Uzma Yusuf MD POINT OF CARE T ESTING Performing Organization Address [facility] Co de Phone Number [facility]# [id number] [address] [place] [address] * PROTEIN/CREATININE RATIO, URINE (12/06/2017 8:21 PM CDT) [facility] PROTEIN CONCENTRATION <6 0 - 20 mg/dL 12/06/2017 9:02 PM CDT [facility] [employer] [facility] CREATININE, URINE 62.4 29.0 - 226.0 mg/dL 12/06/2017 9:02 PM CDT [facility] [employer] [facility] Comment: Reference Range varies with fluid intake and diet. PROTEIN/CREAT RATIO, URINE <0.10 0.00 - 0.19 mg/mg Creatinine 12/06/2017 9:02 PM CDT [facility] [employer] [facility] Urine URINE SPECIMEN OBTAINED BY CLEAN CATCH PROCEDURE / Unknown Collection / Unknown 12/06/2017 8:21 PM CDT 12/06/2017 8:27 PM CDT Uzma Yusuf MD URINE ORDERABLE S Performing Organization Address City/[facility]/ZIP Co de Phone Number [facility] CLIA# [id number] [address] [place] [address] * (ABNORMAL) POC GLUCOSE (12/06/2017 8:15 PM CDT) GLUCOSE POC 111(H) 74 - 99 mg/dL 12/06/2017 8:28 PM CDT [facility] COMMENT, GLU POC Notified RN/ 12/06/2017 8:28 PM CDT [facility] SENIOR PORTFOLIO MANAGER NAME POC WHITNEY IRAHETA 12/06/2017 8:28 PM CDT [facility] Whole blood specimen (specimen) 12/06/2017 8:15 PM CDT 12/06/2017 8:28 PM CDT Uzma Yusuf MD POINT OF CARE T ESTING [facility] CLIA# [id number] [address] [place] [address] * (ABNORMAL) POC GLUCOSE (12/06/2017 4:53 PM CDT) GLUCOSE POC 103(H) 74 - 99 mg/dL 12/06/2017 5:08 PM CDT [facility] COMMENT, GLU POC Notified CLAU/ 12/06/2017 5:08 PM CDT [facility] SENIOR PORTFOLIO MANAGER NAME POC VICK VANCE 12/06/2017 5:08 PM CDT [facility] Whole blood specimen (specimen) 12/06/2017 4:53 PM CDT 12/06/2017 5:08 PM CDT Uzma Yusuf MD POINT OF CARE T ESTING [facility] CLIA# [id number] [address] [place] [address] * (ABNORMAL) POC GLUCOSE (12/06/2017 12:09 PM CDT) GLUCOSE POC 106(H) 74 - 99 mg/dL 12/06/2017 12:22 PM CDT [facility] SENIOR PORTFOLIO MANAGER NAME ROSALVA MARIN 12/06/2017 12:22 PM CDT [facility] Whole blood specimen (specimen) 12/06/2017 12:09 PM CDT 12/06/2017 12:22 PM CDT Uzma Yusuf MD POINT OF CARE T ESTING [facility]# [id number] [address] [place] [address] * (ABNORMAL) POC GLUCOSE (12/06/2017 8:34 AM CDT) GLUCOSE POC 112(H) 74 - 99 mg/dL 12/06/2017 8:48 AM CDT [facility] SENIOR PORTFOLIO MANAGER NAME ROSALVA MARIN 12/06/2017 8:48 AM CDT [facility] Whole blood specimen (specimen) 12/06/2017 8:34 AM CDT 12/06/2017 8:48 AM CDT Uzma Yusuf MD POINT OF CARE T ESTING [facility] CLCA# [id number] [address] [place] [address] * (ABNORMAL) TRIGLYCERIDE (12/06/2017 6:56 AM CDT) TRIGLYCERIDE 1,107(H) <150 mg/dL 12/06/2017 8:15 AM CDT [facility] Blood Venipuncture / Unknown 12/06/2017 6:56 AM CDT 12/06/2017 7:27 AM CDT Narrative [facility] - 12/06/2017 8:15 AM CDT TRIGLYCERIDES ? mg/dL Normal ?< 150 Borderline High ?150 - 199 High ? 200 - 499 Very High ? >= 500 Based on AHA/NCEP Guidelines. Angie Louis MD CHEMISTRY ORDERABLES Performing Organization Address [facility] Co de Phone Number [facility]# [id number] [address] [place] [address] * (ABNORMAL) POC GLUCOSE (12/06/2017 5:47 AM CDT) GLUCOSE POC 113(H) 74 - 99 mg/dL 12/06/2017 6:01 AM CDT [facility] SENIOR PORTFOLIO MANAGER NAME JIGNA RAGLAND 12/06/2017 6:01 AM CDT [facility] Whole blood specimen (specimen) 12/06/2017 5:47 AM CDT 12/06/2017 6:01 AM CDT Uzma Yusuf MD POINT OF CARE T ESTING Performing Organization Address [facility] de Phone Number [facility]# [id number] [address] [place] [address] * (ABNORMAL) POC GLUCOSE (12/06/2017 1:40 AM CDT) GLUCOSE POC 116(H) 74 - 99 mg/dL 12/06/2017 1:55 AM CDT [facility] SENIOR PORTFOLIO MANAGER NAME JIGNA RAGLAND 12/06/2017 1:55 AM CDT [facility] Whole blood specimen (specimen) 12/06/2017 1:40 AM CDT 12/06/2017 1:55 AM CDT Uzma Yusuf MD POINT OF CARE T ESTING [facility] CLIA# [id number] [address] [place] [address] * (ABNORMAL) POC GLUCOSE (12/05/2017 9:45 PM CDT) GLUCOSE POC 123(H) 74 - 99 mg/dL 12/05/2017 9:59 PM CDT [facility] SENIOR PORTFOLIO MANAGER NAME POC JIGNA MARTINEZ 12/05/2017 9:59 PM CDT [facility] Whole blood specimen (specimen) 12/05/2017 9:45 PM CDT 12/05/2017 9:58 PM CDT Uzma Yusuf MD POINT OF CARE T ESTING Performing Organization Address [facility]/State/ZIP Co de Phone Number [facility] CLIA# [id number] [address] [place] [address] * (ABNORMAL) POC GLUCOSE (12/05/2017 5:11 PM CDT) GLUCOSE POC 112(H) 74 - 99 mg/dL 12/05/2017 6:09 PM CDT [facility] SENIOR PORTFOLIO MANAGER NAME POC ABHAY BEATTY 12/05/2017 6:09 PM CDT [facility] Whole blood specimen (specimen) 12/05/2017 5:11 PM CDT 12/05/2017 6:09 PM CDT Uzma Yusuf MD POINT OF CARE T ESTING [facility] CLIA# [id number] [address] [place] [address] * (ABNORMAL) POC GLUCOSE (12/05/2017 1:48 PM CDT) GLUCOSE POC 143(H) 74 - 99 mg/dL 12/05/2017 2:00 PM CDT [facility] SENIOR PORTFOLIO MANAGER NAME POC OMERCEHAIC , GREG 12/05/2017 2:00 PM CDT [facility] Whole blood specimen (specimen) 12/05/2017 1:48 PM CDT 12/05/2017 2:00 PM CDT Uzma Yusuf MD POINT OF CARE T ESTING Performing Organization Address [facility]/ZIP Co de Phone Number [facility] CLIA# [id number] [address] [place] [address] * (ABNORMAL) POC GLUCOSE (12/05/2017 9:24 AM CDT) GLUCOSE POC 155(H) 74 - 99 mg/dL 12/05/2017 9:40 AM CDT [facility] SENIOR PORTFOLIO MANAGER NAME POC OMERCEHAIC , GREG 12/05/2017 9:40 AM CDT [facility] Whole blood specimen (specimen) 12/05/2017 9:24 AM CDT 12/05/2017 9:40 AM CDT Uzma Yusuf MD POINT OF CARE T ESTING Performing Organization Address City/[facility]/ZIP Co de Phone Number [facility] CLIA# [id number] [address] [place] [address] * (ABNORMAL) TRIGLYCERIDE (12/05/2017 7:23 AM CDT) TRIGLYCERIDE 1,462(H) <150 mg/dL 12/05/2017 8:20 AM CDT [facility] Blood Venipuncture / Unknown 12/05/2017 7:23 AM CDT 12/05/2017 7:29 AM CDT Narrative [facility] - 12/05/2017 8:20 AM CDT TRIGLYCERIDES ? mg/dL Normal ?< 150 Borderline High ?150 - 199 High ? 200 - 499 Very High ? >= 500 Based on AHA/NCEP Guidelines. Angie Louis MD CHEMISTRY ORDERABLES Performing Organization Address [facility] Co de Phone Number [facility] CLIA# [id number] [address] [place] [address] * (ABNORMAL) CALCIUM IONIZED (12/05/2017 7:23 AM CDT) PH, VENOUS 7.34 7.32 - 7.43 12/05/2017 7:35 AM CDT [facility] CALCIUM IONIZED 4.5(L) 4.8 - 5.2 mg/dL 12/05/2017 7:35 AM CDT [facility] Blood Venipuncture / Unknown 12/05/2017 7:23 AM CDT 12/05/2017 7:35 AM CDT Angie Louis MD CHEMISTRY ORDERABLES Performing Organization Address [facility] Co de Phone Number [id number] [address] [place] [address] * (ABNORMAL) POC GLUCOSE (12/05/2017 3:55 AM CDT) GLUCOSE POC 150(H) 74 - 99 mg/dL 12/05/2017 4:07 AM CDT [facility] COMMENT, GLU POC Notified RN/ 12/05/2017 4:07 AM CDT [facility] SENIOR PORTFOLIO MANAGER NAME POC VICK VANCE 12/05/2017 4:07 AM CDT [facility] Whole blood specimen (specimen) 12/05/2017 3:55 AM CDT 12/05/2017 4:07 AM CDT Puja Pagan MD POINT OF CARE TESTIN G Performing Organization Address [facility]/ZIP Co de Phone Number [facility] CLIA# [id number] [address] [place] [address] * (ABNORMAL) POC GLUCOSE (12/04/2017 10:30 PM CDT) GLUCOSE POC 132(H) 74 - 99 mg/dL 12/04/2017 10:46 PM CDT [facility] COMMENT, GLU POC Notified RN/MD 12/04/2017 10:46 PM CDT [facility] SENIOR PORTFOLIO MANAGER NAME POC NIMESH VANCEGIE 12/04/2017 10:46 PM CDT [facility] Whole blood specimen (specimen) 12/04/2017 10:30 PM CDT 12/04/2017 10:46 PM CDT Puja Pagan MD POINT OF CARE TESTIN G Performing Organization Address [facility] Co de Phone Number [facility] CLIA# [id number] [address] [place] [address] * (ABNORMAL) TSH (12/04/2017 8:23 PM CDT) TSH 39.54(H) 0.27 - 4.20 uIU/mL 12/04/2017 11:35 PM CDT [facility] Blood BLOOD SPECIMEN / Unknown Venipuncture / Unknown 12/04/2017 8:23 PM CDT 12/04/2017 8:30 PM CDT Angie Louis MD CHEMISTRY ORDERABLES [facility]# [id number] [address] [place] [address] * (ABNORMAL) HEMOGLOBIN A1C (12/04/2017 8:23 PM CDT) HEMOGLOBIN A1C 8.3(H) 4.0 - 6.0 % 12/04/2017 10:09 PM CDT [facility] EST. AVG GLUCOSE, A1C 192 mg/dL 12/04/2017 10:09 PM CDT [facility] Blood BLOOD SPECIMEN / Unknown Venipuncture / Unknown 12/04/2017 8:23 PM CDT 12/04/2017 8:30 PM CDT Narrative [facility] - 12/04/2017 10:09 PM CDT HGB A1C INTERPRETATION NORMAL: ? <5.7% PRE-DIABETES: 5.7 - 6.4% DIABETES: ? 6.5% OR GREATER Angie Louis MD CHEMISTRY ORDERABLES Performing Organization Address City/[facility]/ZIP Co de Phone Number [facility] CLCA# [id number] [address] [place] [address] * (ABNORMAL) C-REACTIVE PROTEIN (12/04/2017 8:23 PM CDT) CRP 7.7(H) <5.0 mg/L 12/04/2017 9:09 PM CDT [facility] Blood BLOOD SPECIMEN / Unknown Venipuncture / Unknown 12/04/2017 8:23 PM CDT 12/04/2017 8:30 PM CDT Angie Louis MD CHEMISTRY ORDERABLES [facility]# [id number] [address] [place] [address] * SEDIMENTATION RATE (12/04/2017 8:23 PM CDT) ESR (SEDIMENTATION RATE) 13 <=20 mm/Hr 12/04/2017 9:10 PM CDT [facility] Blood BLOOD SPECIMEN / Unknown Venipuncture / Unknown 12/04/2017 8:23 PM CDT 12/04/2017 8:30 PM CDT Angie Louis MD HEMATOLOGY ORDERABLE S [facility]# [id number] [address] [place] [address] * LIPASE (12/04/2017 8:23 PM CDT) Pathologist [facility] LIPASE 19 13 - 60 U/L 12/04/2017 9:09 PM CD[address] [facility] Blood BLOOD SPECIMEN / Unknown Venipuncture / Unknown 12/04/2017 8:23 PM CDT 12/04/2017 8:30 PM CDT Angie Louis MD CHEMISTRY ORDERABLES Performing Organization Address [facility]/ZIP Co de Phone Number [facility]# [id number] [address] [place] [address] * LACTIC ACID (12/04/2017 8:23 PM CDT) Pathologist [facility] LACTIC ACID 0.9 0.5 - 2.0 mmol/L 12/04/2017 8:58 PM CDT [facility] Blood BLOOD SPECIMEN / Unknown Venipuncture / Unknown 12/04/2017 8:23 PM CDT 12/04/2017 8:31 PM CDT Angie Louis MD CHEMISTRY ORDERABLES Performing Organization Address City/[facility]/ZIP Co de Phone Number [facility]# [id number] [address] [place] [address] * (ABNORMAL) COMPREHENSIVE METABOLIC PANEL (12/04/2017 8:23 PM CDT) SODIUM 132(L) 136 - 145 mmol/L 12/04/2017 9:09 PM T [facility] - [facility] POTASSIUM 3.4(L) 3.5 - 5.0 mmol/L 12/04/2017 9:09 PM T [facility] CHLORIDE 98 98 - 107 mmol/L 12/04/2017 9:09 PM T [facility] [facility] CO2 24 22 - 29 mmol/L 12/04/2017 9:09 PM T [facility] CALCIUM 8.0(L) 8.6 - 10.2 mg/dL 12/04/2017 9:09 PM T [facility] BUN 5(L) 6 - 20 mg/dL 12/04/2017 9:09 PM T [facility] CREATININE 0.53 0.51 - 0.95 mg/dL 12/04/2017 9:09 PM T [facility] GLUCOSE 122(H) 74 - 99 mg/dL 12/04/2017 9:09 PM T [facility] TOTAL PROTEIN 6.5(L) 6.7 - 8.6 g/dL 12/04/2017 9:09 PM T [facility] ALBUMIN 4.0 3.5 - 5.2 g/dL 12/04/2017 9:09 PM T [facility] BILIRUBIN TOTAL 0.2(L) 0.3 - 1.2 mg/dL 12/04/2017 9:09 PM CDT [facility] ALKALINE PHOSPHATASE 58 35 - 104 U/L 12/04/2017 9:09 PM CDT [facility] AST 15 <33 U/L 12/04/2017 9:09 PM CDT [facility] ALT 11 <34 U/L 12/04/2017 9:09 PM T [facility] GFR >60 >=60 mL/min/1.7 3 sq meter 12/04/2017 9:09 PM T [facility] Comment: eGFR has not been validated for [...] GFR, >60 >=60 mL/min/1.7 3 sq meter 12/04/2017 9:09 PM CDT [facility] ANION GAP 10 8 - 16 mmol/L 12/04/2017 9:09 PM T [facility] Blood BLOOD SPECIMEN / Unknown Venipuncture / Unknown 12/04/2017 8:23 PM CDT 12/04/2017 8:30 PM CDT Narrative [facility] - 12/04/2017 9:09 PM CDT Samples containing indocyanine green cause interferences on Total and/or Direct Bilirubin and must not be measured. Angie Louis MD CHEMISTRY ORDERABLES [facility]# [id number] [address] [facility] [address] [place] [address] * (ABNORMAL) LIPID PANEL (12/04/2017 8:23 PM CDT) [facility] CHOLESTEROL 350(H) <200 mg/dL 12/04/2017 9:26 PM T [facility] TRIGLYCERIDE 1,496(H) <150 mg/dL 12/04/2017 9:26 PM T [facility] HDL 40 - 59 mg/dL 12/04/2017 9:26 PM T [facility] Comment: Measured HDL is not accurate when the Triglyceride value exceeds 1200. LDL CALCULATED <100 mg/dL 12/04/2017 9:26 PM CDT [facility] Comment:Calculated LDL is no t accurate when the Triglyceride value exceeds 400. NON-HDL CHOLESTEROL <130 mg/dL 12/04/2017 9:26 PM CDT [facility] Comment:Non HDL Cholesterol cannot be calculated when the HDL value is suppressed. Blood BLOOD SPECIMEN / Unknown Venipuncture / Unknown 12/04/2017 8:23 PM CDT 12/04/2017 8:30 PM CDT [facility] - 12/04/2017 9:26 PM CDT TOTAL CHOLESTEROL ??mg/dL ??Desirable <200 [...] Guidelines Reference Ranges for Lipid Panels (NCEP/AMA) Angie Louis MD CHEMISTRY ORDERABLES [facility]# [id number] [address] [facility] [place] [address] * (ABNORMAL) CBC WITH DIFFERENTIAL (12/04/2017 8:23 PM CDT) WBC 7.7 4.0 - 9.8 K/uL 12/04/2017 8:46 PM CD[address] [facility] RBC 3.79(L) 3.90 - 4.90 M/uL 12/04/2017 8:46 PM CD[address] [facility] HEMOGLOBIN 11.4(L) 11.8 - 14.8 g/dL 12/04/2017 8:46 PM [address] [facility] HEMATOCRIT 34.3(L) 35.5 - 44.0 % 12/04/2017 8:46 PM T [employer] [facility] - . [facility] MCV 90.5 82.0 - 99.0 fL 12/04/2017 8:46 PM T [employer] [facility] - [facility] MCH 30.1 27.2 - 32.6 pg 12/04/2017 8:46 PM [employer] LABORAT[facility] - [facility] MCHC 33.2 31.5 - 35.5 g/dL 12/04/2017 8:46 PM [employer] [facility] - [facility] RDW 14.7(H) 11.5 - 14.5 % 12/04/2017 8:46 PM [facility] [employer] [facility] - [facility] RDW-STDEV 49.2(H) 37.1 - 48.7 fL 12/04/2017 8:46 PM [employer] [facility] - [facility] PLATELETS 208 140 - 350 K/uL 12/04/2017 8:46 PM [employer] [facility] - [facility] MPV 9.0(L) 9.3 - 12.4 fL 12/04/2017 8:46 PM [employer] [facility] - . [facility] NEUTROPHILS 64 % 12/04/2017 8:46 PM [employer] [facility] - . [facility] LYMPHOCYTES 28 % 12/04/2017 8:46 PM [employer] [facility] - . [facility] MONOCYTES 5 % 12/04/2017 8:46 PM [employer] [facility] - . [facility] EOSINOPHILS 1 % 12/04/2017 8:46 PM [employer] [facility] - . [facility] BASOPHILS 1 % 12/04/2017 8:46 PM [employer] [facility] - . [facility] IMMATURE GRANULOCYTES 1 % 12/04/2017 8:46 PM [employer] [facility] - . [facility] Comment:IG (Immature Granulo cyte) count includes Metamyelocytes, Myelocytes, and Promyelocytes NEUTROPHIL ABSOLUTE 4.92 1.90 - 7.00 K/uL 12/04/2017 8:46 PM [facility] LAB[facility]ATORY SERVICES - . [facility] LYMPHOCYTE ABSOLUTE 2.17 0.70 - 4.50 K/uL 12/04/2017 8:46 PM CDB[facility] LAB[facility]ATORY SERVICES - . [facility] MONOCYTE ABSOLUTE 0.36 0.10 - 1.30 K/uL 12/04/2017 8:46 PM CDT [facility] - . [facility] EOSINOPHIL ABSOLUTE 0.10 0.00 - 0.70 K/uL 12/04/2017 8:46 PM CDT [facility] BASOPHILS ABSOLUTE 0.04 0.00 - 0.20 K/uL 12/04/2017 8:46 PM CDT [facility] - . [facility] IMMATURE GRANULOCYTES ABSOLUTE 0.08(H) 0.00 - 0.03 K/uL 12/04/2017 8:46 PM CDT [facility] - . [facility] Blood BLOOD SPECIMEN / Unknown Venipuncture / Unknown 12/04/2017 8:23 PM CDT 12/04/2017 8:30 PM CDT Angie Louis MD HEMATOLOGY ORDERABLE S [facility] LABORATORY SERVICES [facility]# [id number] [facility] [place] [address] documented in this encounter Visit Diagnoses Diagnosis Pancreatitis, recurrent Chronic pancreatitis Hypertriglyceridemia Pure hyperglyceridemia Epigastric abdominal pain Abdominal pain, epigastric Nausea vomiting and diarrhea Nausea with vomiting Depression with anxiety Dysthymic disorder Type 2 diabetes mellitus without complication, with long-term current use of insulin Acquired hypothyroidism Unspecified hypothyroidism documented in this encounter Administered Medications Inactive Administered Medications - up to 3 most recent administrations Medication Order MAR Action Action Date Dose Rate Site acetaminophen (TYLENOL) tablet 650 mg 650 mg, Oral, EVERY 6 HOURS PRN, Starting on Sat12/04/17 at 1955, Until Sat12/10/17 at 1525, Other (See Comment), See admin instructions, Routine Given 12/10/2017 8:43 AM CDT 650 mg atorvastatin (LIPITOR) tablet 80 mg 80 mg, Oral, DAILY AT BEDTIME, First dose on Sat12/04/17 at 2100, Until Discontinued, Routine Given 12/09/2017 8:11 PM CDT 80 mg Given 12/08/2017 8:21 PM CDT 80 mg Given 12/07/2017 8:40 PM CDT 80 mg citalopram (CeleXA) tablet 40 mg 40 mg, Oral, DAILY AT BEDTIME, First dose on Sat12/04/17 at 2100, Until Discontinued, Routine Given 12/09/2017 8:11 PM CDT 40 mg Given 12/08/2017 8:21 PM CDT 40 mg Given 12/07/2017 8:41 PM CDT 40 mg dextrose 5% - sodium chloride 0.9% infusion IV, at 100 mL/hr, CONTINUOUS, Starting on Sat12/04/17 at 2045, Until Sat12/04/17 at 2141, Routine New Bag 12/04/2017 9:07 PM CDT 100 mL/hr dextrose 5% infusion IV, at 40 mL/hr, SEE ADMIN INSTRUCTIONS, Starting on Sat12/04/17 at 2038, Until Sat12/10/17 at 1525, Routine dextrose 50% (D50) syringe 12.5 Gram 12.5 Gram, IV, SEE ADMIN INSTRUCTIONS, Starting on Sat12/04/17 at 2038, Until Sat12/10/17 at 1525, Routine dextrose 50% (D50) syringe 25 Gram 25 Gram, IV, SEE ADMIN INSTRUCTIONS, Starting on Sat12/04/17 at 2038, Until Sat12/10/17 at 1525, Routine diphenhydrAMINE (BENADRYL) tablet 25 mg 25 mg, Oral, EVERY 6 HOURS PRN, Starting on Sat12/04/17 at 1958, Until Sat12/10/17 at 1525, Itching, Routine Given 12/10/2017 10:30 AM CDT 25 mg Given 12/09/2017 12:05 PM CDT 25 mg Given 12/05/2017 9:15 AM CDT 25 mg enoxaparin (LOVENOX) injection 40 mg 40 mg, subCUT, DAILY AT BEDTIME, First dose on Sat12/04/17 at 2145, Until Discontinued, Routine Given 12/09/2017 8:11 PM CDT 40 mg Abdominal Tissue Given 12/08/2017 8:22 PM CDT 40 mg Ab domen, Left Lower Quadrant Given 12/07/2017 8:41 PM CDT 40 mg Ab domen, Right Lower Quadrant fenofibrate (LOFIBRA) tablet 160 mg 160 mg, Oral, DAILY, First dose on Katie 12/05/17 at 0900, Until Discontinued, Routine Given 12/10/2017 8:43 AM CDT 160 mg Given 12/09/2017 10:12 AM CDT 160 mg Given 12/08/2017 9:24 AM CDT 160 mg fish oil-omega-3 fatty acids 340-1,000 mg capsule 1 Capsule 1 Capsule, Oral, DAILY, First dose on Sat12/05/17 at 0900, Until Discontinued, Routine Given 12/06/2017 9:07 AM CDT 1 Capsule Given 12/05/2017 9:15 AM CDT 1 Capsule fish oil-omega-3 fatty acids 340-1,000 mg capsule 2 Capsule 2 Capsule, Oral, TWO TIMES DAILY, First dose (after last modification) on Sat12/06/17 at 2100, Until Discontinued, Routine Given 12/10/2017 8:39 AM CDT 2 Capsules Given 12/09/2017 8:12 PM CDT 2 Capsules Given 12/09/2017 10:12 AM CDT 2 Capsules glucagon HCl 1 mg injection 1 mg 1 mg, IM, SEE ADMIN INSTRUCTIONS, Starting on Sat12/04/17 at 2038, Until Sat12/10/17 at 1525, Routine HYDROcodone-acetaminophen (NORCO) 5-325 mg per tablet 1 Tablet 1 Tablet, Oral, EVERY 4 HOURS PRN, Starting on Sat12/08/17 at 1144, Until Sat12/10/17 at 1525, Pain, Mild, Routine Given 12/10/2017 10:36 AM CDT 1 Tabl et Given 12/10/2017 5:00 AM CDT 1 Tablet Given 12/09/2017 6:22 PM CDT 1 Tablet hydrocortisone 1 % topical ointment Topical, TWO TIMES DAILY, First dose on Sat12/10/17 at 1200, Until Discontinued, Routine insulin lispro (HumaLOG) variable dose injection subCUT, EVERY 4 HOURS, First dose on Sat12/04/17 at 2200, Until Discontinued, Routine Given 12/10/2017 8:00 AM CDT 1 Units Arm, Right Given 12/10/2017 5:01 AM CDT 1 Units Ar m, Right Upper Given 12/09/2017 5:28 PM CDT 1 Units Ab dominal Tissue levothyroxine (SYNTHROID) tablet 175 mcg 175 mcg, Oral, DAILY EARLY, First dose on Sat12/05/17 at 0600, Until Discontinued, Routine Given 12/06/2017 5:45 AM CDT 175 mcg Given 12/05/2017 5:41 AM CDT 175 mcg levothyroxine (SYNTHROID) tablet 200 mcg 200 mcg, Oral, DAILY EARLY, First dose (after last modification) on 12/07/17 at 0600, Until Discontinued, Routine Given 12/10/2017 6:00 AM CDT 200 mcg Given 12/09/2017 6:00 AM CDT 200 mcg Given 12/08/2017 5:40 AM CDT 200 mcg LORazepam (ATIVAN) tablet 1 mg 1 mg, Oral, TWO TIMES DAILY PRN, Starting on Sat12/04/17 at 1954, Until Sat12/10/17 at 1525, Anxiety, Routine Given 12/09/2017 9:33 PM CDT 1 mg Given 12/08/2017 5:13 PM CDT 1 mg Given 12/06/2017 1:16 PM CDT 1 mg magnesium hydroxide (MILK OF MAGNESIA) oral suspension 30 mL 30 mL, Oral, ONE TIME ONLY, 1 dose, On Sat12/10/17 at 0730, Routine Given 12/10/2017 8:39 AM CDT 30 mL magnesium oxide (MAG-OX) tablet 400 mg 400 mg, Oral, DAILY, First dose on Katie 12/05/17 at 0900, Until Discontinued, Routine Given 12/10/2017 8:39 AM CDT 400 mg Given 12/09/2017 10:12 AM CDT 400 mg Given 12/08/2017 9:24 AM CDT 400 mg morphine 4 mg/mL injection 2 mg 2 mg, IV, EVERY 2 HOURS PRN, Starting on Sat12/04/17 at 1957, Until Sat12/07/17 at 1440, Pain (See admin instructions), Routine Given 12/06/2017 5:34 PM CDT 2 mg Given 12/06/2017 12:27 PM CDT 2 mg Given 12/06/2017 9:07 AM CDT 2 mg morphine 4 mg/mL injection 3 mg 3 mg, IV, EVERY 6 HOURS PRN, 4 doses, Starting on Sat12/09/17 at 1146, Until Sat12/09/17 at 1713, Pain (See admin instructions), Routine Given 12/09/2017 4:19 PM CDT 3 mg morphine 4 mg/mL injection 4 mg 4 mg, IV, EVERY 2 HOURS PRN, Starting on Sat12/04/17 at 1957, Until 12/07/17 at 1440, Pain (See admin instructions), Routine Given 12/07/2017 12:59 PM CDT 4 mg Given 12/07/2017 10:53 AM CDT 4 mg Given 12/07/2017 7:26 AM CDT 4 mg morphine 4 mg/mL injection 4 mg 4 mg, IV, EVERY 3 HOURS PRN, Starting on 12/07/17 at 1445, Until 12/08/17 at 1144, Pain (See admin instructions), Routine Given 12/08/2017 10:02 AM CDT 4 mg Given 12/08/2017 7:16 AM CDT 4 mg Given 12/08/2017 4:17 AM CDT 4 mg morphine 4 mg/mL injection 4 mg 4 mg, IV, EVERY 4 HOURS PRN, Starting on 12/08/17 at 1145, Until 12/09/17 at 1141, Pain (See admin instructions), Routine Given 12/09/2017 1:52 AM CDT 4 mg Given 12/08/2017 8:22 PM CDT 4 mg Given 12/08/2017 2:04 PM CDT 4 mg niacin (NIACOR) tablet 500 mg 500 mg, Oral, TWO TIMES DAILY, First dose on Sat12/04/17 at 2100, Until Discontinued, Routine Given 12/10/2017 8:39 AM CDT 500 mg Given 12/09/2017 8:12 PM CDT 500 mg Given 12/09/2017 10:12 AM CDT 500 mg pantoprazole (PROTONIX) tablet 40 mg 40 mg, Oral, DAILY, First dose on Sat12/05/17 at 0900, Until Discontinued, Routine Given 12/10/2017 8:39 AM CDT 40 mg Given 12/09/2017 10:12 AM CDT 40 mg Given 12/08/2017 9:24 AM CDT 40 mg polyethylene glycol (MIRALAX) packet 17 Gram 17 Gram, Oral, DAILY, First dose on Sat12/10/17 at 0900, Until Discontinued, Routine Given 12/10/2017 8:40 AM CDT 17 Grams potassium Cl 40 mEq in dextrose 5% - NaCl 0.9% 1000 mL infusion IV, at 40 mL/hr, CONTINUOUS, Starting on Sat12/04/17 at 2230, Until Sat12/10/17 at 0728, Routine New Bag 12/09/2017 1:22 PM CDT 40 mL/hr New Bag 12/08/2017 8:22 AM CDT 40 mL/hr Bag Switched 12/07/2017 4:00 AM CDT 40 mL/hr prochlorperazine (COMPAZINE) injection 10 mg 10 mg, IV, EVERY 6 HOURS PRN, Starting on Sat12/04/17 at 1957, Until Sat12/10/17 at 1525, Nausea/Emesis, Routine Given 12/09/2017 6:23 PM CDT 10 mg Given 12/09/2017 10:16 AM CDT 10 mg Given 12/08/2017 8:22 PM CDT 10 mg sennosides (SENOKOT) tablet 8.6 mg 8.6 mg, Oral, TWO TIMES DAILY, First dose on Sat12/09/17 at 1200, Until Discontinued, Routine Given 12/10/2017 8:39 AM CDT 8.6 mg Given 12/09/2017 8:12 PM CDT 8.6 mg Given 12/09/2017 12:05 PM CDT 8.6 mg sodium chloride 0.9% infusion IV, at 100 mL/hr, CONTINUOUS, Starting on Sat12/04/17 at 2015, Until Sat12/04/17 at 2037, Routine New Bag 12/04/2017 8:35 PM CDT 100 mL/hr traZODone (DESYREL) tablet 50 mg 50 mg, Oral, DAILY AT BEDTIME, First dose on Sat12/04/17 at 2100, Until Discontinued, Routine Given 12/09/2017 8:12 PM CDT 50 mg Given 12/08/2017 8:21 PM CDT 50 mg Given 12/07/2017 8:42 PM CDT 50 mg documented in this encounter Active and Recently Administered Medications Times are shown in CDT. Scheduled Medication Order 12/08/2017 12/09/2017 12/10/2017 atorvastatin (LIPITOR) tablet 80 mg 80 mg, Oral, DAILY AT BEDTIME, First dose on Sat12/04/17 at 2100, Until Discontinued, Routine 2020 (Given - Provider: Yamil Gonzalez, CLAU) 2010 (Given - Provider: Afua Burrows RN) citalopram (CeleXA) tablet 40 mg 40 mg, Oral, DAILY AT BEDTIME, First dose on Sat12/04/17 at 2100, Until Discontinued, Routine 2020 (Given - Provider: Yamil Gonzalez, RN) 2010 (Given - Provider: Afua Burrows, RN) dextrose 5% infusion IV, at 40 mL/hr, SEE ADMIN INSTRUCTIONS, Starting on Sat12/04/17 at 2038, Until Sat12/10/17 at 1525, Routine dextrose 50% (D50) syringe 12.5 Gram 12.5 Gram, IV, SEE ADMIN INSTRUCTIONS, Starting on Sat12/04/17 at 2038, Until Sat12/10/17 at 1525, Routine dextrose 50% (D50) syringe 25 Gram 25 Gram, IV, SEE ADMIN INSTRUCTIONS, Starting on Sat12/04/17 at 2038, Until Sat12/10/17 at 1525, Routine enoxaparin (LOVENOX) injection 40 mg 40 mg, subCUT, DAILY AT BEDTIME, First dose on Sat12/04/17 at 2145, Until Discontinued, Routine 2021 (Given - Provider: Yamil Gonzalez RN) 2010 (Given - Provider: Afua Burrows RN) fenofibrate (LOFIBRA) tablet 160 mg 160 mg, Oral, DAILY, First dose on Sat12/05/17 at 0900, Until Discontinued, Routine 923 (Given - Provider: Savana Leon RN) 101 (Given - Provider: Matteo Curtis, CLAU) 0843 (Given - Provider: Puja Fonseca, CLAU) fish oil-omega-3 fatty acids 340-1,000 mg capsule 2 Capsule 2 Capsule, Oral, TWO TIMES DAILY, First dose (after last modification) on Sat12/06/17 at 2100, Until Discontinued, Routine 923 (Given - Provider: Savana Leon RN)2020 (Given - Provider: Yamil Gonzalez RN) 101 (Given - Provider: Matteo Curtis, RN)2011 (Given - Provider: Afua Burrows RN) 0839 (Given - Provider: Puja Fonseca, CLAU) glucagon HCl 1 mg injection 1 mg 1 mg, IM, SEE ADMIN INSTRUCTIONS, Starting on Sat12/04/17 at 2038, Until Sat12/10/17 at 1525, Routine hydrocortisone 1 % topical ointment Topical, TWO TIMES DAILY, First dose on Sat12/10/17 at 1200, Until Discontinued, Routine 1200 (Due) insulin lispro (HumaLOG) variable dose injection subCUT, EVERY 4 HOURS, First dose on Sat12/04/17 at 2200, Until Discontinued, Routine 0000 (Refused - Provider: Unique Weaver RN)0400 (Not Given - Provider: Unique Weaver RN - Reason: Lab results - Comment: BS 119)0800 (Not Given - Provider: Savana Leon RN - Reason: Clarify-Other (Comment) - Comment: bs 116)1200 (Not Given - Provider: Savana Leon RN - Reason: Clarify-Other (Comment) - Comment: bs 140)1710 (Given - Provider: Savana Leon RN - Comment: bs 143)2000 (Not Given - Provider: Yamil Gonzalez RN - Reason: Patient condition - Comment: 137) 0000 (Not Given - Provider: Yamil Gonzalez RN - Reason: Patient condition - Comment: BG 124)0442 (Given - Provider: Yamil Gonzalez RN - Comment: 143)0800 (Not Given - Provider: Matteo Curtis RN - Reason: Lab results)1200 (Not Given - Provider: Matteo Curtis RN - Reason: Lab results)1728 (Given - Provider: Matteo Curtis RN)2000 (Not Given - Provider: Afua Burrows RN - Reason: Patient condition - Comment: BS 135) 0000 (Not Given - Provider: Yamil Gonzalez RN - Reason: Patient condition - Comment: 136)0501 (Given - Provider: Yamil Gonzalez RN)0800 (Given - Provider: Puja Fonseca RN - Comment: bg 154)1200 (Due) levothyroxine (SYNTHROID) tablet 200 mcg 200 mcg, Oral, DAILY EARLY, First dose (after last modification) on Sat12/07/17 at 0600, Until Discontinued, Routine 0540 (Given - Provider: Unique Weaver RN) 0600 (Given - Provider: Yamil Gonzalez RN) 0600 (Given - Provider: Yamil Gonzalez RN) magnesium hydroxide (MILK OF MAGNESIA) oral suspension 30 mL (COMPLETED) 30 mL, Oral, ONE TIME ONLY, 1 dose, On Sat12/10/17 at 0730, Routine 0839 (Given - Provider: Puja Fonseca RN) magnesium oxide (MAG-OX) tablet 400 mg 400 mg, Oral, DAILY, First dose on Sat12/05/17 at 0900, Until Discontinued, Routine 0924 (Given - Provider: Savana Leon, CLAU) 1012 (Given - Provider: Matteo Curtis, CLAU) 0839 (Given - Provider: Puja Fonseca RN) naloxone (NARCAN) 0.4 mg/mL injection 0.1 mg 0.1 mg, IV, SEE ADMIN INSTRUCTIONS, Starting on Sat12/04/17 at 1955, Until Sat12/10/17 at 1525, Routine niacin (NIACOR) tablet 500 mg 500 mg, Oral, TWO TIMES DAILY, First dose on Sat12/04/17 at 2100, Until Discontinued, Routine 0924 (Given - Provider: Savana Leon, CLAU)2020 (Given - Provider: Yamil Gonzalez RN) 1011 (Given - Provider: Matteo Curtis RN)2011 (Given - Provider: Afua Burrows RN) 0839 (Given - Provider: Puja Fonseca RN) pantoprazole (PROTONIX) tablet 40 mg 40 mg, Oral, DAILY, First dose on Sat12/05/17 at 0900, Until Discontinued, Routine 0924 (Given - Provider: Savana Leon RN) 1012 (Given - Provider: Matteo Curtis RN) 0839 (Given - Provider: Puja Fonseca RN) polyethylene glycol (MIRALAX) packet 17 Gram 17 Gram, Oral, DAILY, First dose on Sat12/10/17 at 0900, Until Discontinued, Routine 0840 (Given - Provider: Puja Fonseca RN) sennosides (SENOKOT) tablet 8.6 mg 8.6 mg, Oral, TWO TIMES DAILY, First dose on Sat12/09/17 at 1200, Until Discontinued, Routine 1205 (Given - Provider: Matteo Curtis RN)2011 (Given - Provider: Afua Burrows RN) 0839 (Given - Provider: Puja Fonseca RN) traZODone (DESYREL) tablet 50 mg 50 mg, Oral, DAILY AT BEDTIME, First dose on Sat12/04/17 at 2100, Until Discontinued, Routine 2020 (Given - Provider: Yamil Gonzalez, RN) 2011 (Given - Provider: Afua Burrows, CLAU) Continuous Medication Order 12/08/2017 12/09/2017 12/10/2017 potassium Cl 40 mEq in dextrose 5% - NaCl 0.9% 1000 mL infusion (CANCELED) IV, at 40 mL/hr, CONTINUOUS, Starting on Sat12/04/17 at 2230, Until Sat12/10/17 at 0728, Routine 0822 (New Bag - Provider: Savana Leon, RN) 1322 (New Bag - Provider: Reese Wilson RN) PRN Medication Order 12/08/2017 12/09/2017 12/10/2017 acetaminophen (TYLENOL) tablet 650 mg 650 mg, Oral, EVERY 6 HOURS PRN, Starting on Sat12/04/17 at 1955, Until Sat12/10/17 at 1525, Other (See Comment), See admin instructions, Routine 0843 (Given - Provider: Puja Fonseca, CLAU) aluminum - magnesium - simethicone (MYLANTA) 200-200-20 mg/5 mL oral suspension 30 mL 30 mL, Oral, EVERY 2 HOURS PRN, Starting on Sat12/04/17 at 1957, Until Sat12/10/17 at 1525, Indigestion, Routine bisacodyl (DULCOLAX) rectal suppository 10 mg 10 mg, Rectal, DAILY PRN, Starting on Sat12/04/17 at 1957, Until Sat12/10/17 at 1525, Constipation, Routine diphenhydrAMINE (BENADRYL) tablet 25 mg 25 mg, Oral, EVERY 6 HOURS PRN, Starting on Sat12/04/17 at 1958, Until Sat12/10/17 at 1525, Itching, Routine 1205 (Given - Provider: Matteo Curtis, CLAU) 1030 (Given - Provider: Puja Fonseca, CLAU) docusate sodium (COLACE) capsule 100 mg 100 mg, Oral, TWO TIMES DAILY PRN, Starting on Sat12/04/17 at 1955, Until Sat12/10/17 at 1525, Constipation, Routine HYDROcodone-acetaminop hen (NORCO) 5-325 mg per tablet 1 Tablet 1 Tablet, Oral, EVERY 4 HOURS PRN, Starting on 12/08/17 at 1144, Until Sat12/10/17 at 1525, Pain, Mild, Routine 0540 (Given - Provider: Yamil Gonzalez RN)1015 (Given - Provider: Matteo Curtis, RN)1422 (Given - Provider: Matteo Curtis RN)1822 (Given - Provider: Jovany Workman RN) 0500 (Given - Provider: Yamil Gonzalez RN)1036 (Given - Provider: Pjua Fonseca RN) LORazepam (ATIVAN) tablet 1 mg 1 mg, Oral, TWO TIMES DAILY PRN, Starting on Sat12/04/17 at 1954, Until Sat12/10/17 at 1525, Anxiety, Routine 1713 (Given - Provider: Savana Leon RN) 2133 (Given - Provider: Yamil Gonzalez RN) morphine 4 mg/mL injection 3 mg (CANCELED) 3 mg, IV, EVERY 6 HOURS PRN, 4 doses, Starting on 12/09/17 at 1146, Until Sat12/09/17 at 1713, Pain (See admin instructions), Routine 1619 (Given - Provider: Matteo Curtis RN) morphine 4 mg/mL injection 4 mg (CANCELED) 4 mg, IV, EVERY 3 HOURS PRN, Starting on 12/07/17 at 1445, Until 12/08/17 at 1144, Pain (See admin instructions), Routine 0041 (Given - Provider: Unique Weaver RN)0417 (Given - Provider: Unique Weaver RN)0716 (Given - Provider: Unique Weaver, CLAU)1002 (Given - Provider: Savana Leon RN) morphine 4 mg/mL injection 4 mg (CANCELED) 4 mg, IV, EVERY 4 HOURS PRN, Starting on 12/08/17 at 1145, Until 12/09/17 at 1141, Pain (See admin instructions), Routine 1404 (Given - Provider: Savana Leon RN)2022 (Given - Provider: Yamil Gonzalez CLAU) 0152 (Given - Provider: Yamil Gonzalez, CLAU) prochlorperazine (COMPAZINE) injection 10 mg 10 mg, IV, EVERY 6 HOURS PRN, Starting on Sat12/04/17 at 1957, Until Sat12/10/17 at 1525, Nausea/Emesis, Routine 1405 (Given - Provider: Savana Leon, CLAU)2021 (Given - Provider: Yamil Gonzalez RN) 1016 (Given - Provider: Matteo Curtis RN)1823 (Given - Provider: Jovany Workman RN) documented in this encounter Care Teams Jail Keeper Relationship Specialty Start Date End Date Nomfc, External Provider PCP - General 12/06/17 8 documented as of this encounter
--- OUTSIDE RECORDS SUMMARY | 2024-05-03 20:47 | XMS_ITS | Encounter Summary ---
Author Organization [facility] [address] [place] [address] Care Team Providers Care Leather Tooler Name Role Phone Unavailable Primary Care Provider Unavailabl e Reason for Referral * Eval and Treat (Routine) - Closed Specialty Diagnoses / Procedures Referred By Tequila t Referred To Contact Psychiatry Diagnoses Anxiety Prudence Gates MD [address] [place] [address] [facility] [place] [address] Referral ID Status Reason Start Date Expiration Date V isits Requested Visits Authorized [id number] Closed Ordering Dept To Review (STL) 05/21/2012 05/22/2013 1 1 RESPIRATORY Reason for Visit * Reason Comments Thyroid Problem F/U Encounter Details Date Type Department Care Team (Late st Contact Info) Description 05/21/2012 3:15 PM VP RESPIRATORY Office Visit [facility] Endocrinology [address] [place] [address] Prudence Gates MD [address] [place] [address] Unspecified hypothyroidism; Metabolic syndrome; History of gestational diabetes; Combined hyperlipidemia; Vitamin d deficiency; Anxiety Social History Tobacco Use Types Packs/Day Years [...] Sign Reading Time Taken Comments Blood Pressure 112/78 05/21/2012 3:04 PM VP RESPIRATORY Pulse 80 05/21/2012 3:04 PM VP RESPIRATORY Temperature - - Respiratory Rate - - Oxygen Saturation - - Inhaled Oxygen Concentration - - Weight 85.7 kg (189 lb) 05/21/2012 3:04 PM VP RESPIRATORY Height 162.6 cm (5' 4 ) 05/21/2012 3:04 PM VP RESPIRATORY Body Mass Index 32.44 05/21/2012 3:04 PM VP RESPIRATORY documented in this encounter Progress Notes * Prudence Gates MD - 05/21/2012 3:29 PM CST The patient came for follow up of PCOS, metabolic syndrome, prediabetes and significant combined hyperlipidemia. She was trying very hard to loose weight, she got , she has been very anxious,depressed and is having panic attacks. Dr Mitchell prescribed celexa which worked in the past but nowis not. She restarted smoking. She did not take Chantix due to cost. She had no side effects from it. She has 3 children 18 yo son, 16 yo son 9 yo. Casandra was diagnosed with PCOS. During her third she had gestational diabetes. She does not have headaches as before. He denies having any acne She did have a partial hysterectomy in 2006 She is on metformin She regained the lost weight She has a strong family history of DM and cardiovascular disease. She takes her synthroid, and metformin She forgets her vit D and the crestor. Review of Systems - General ROS: negative for fever Psychological ROS: positive for anxiety or depressive symptoms Endocrine ROS: [...] PE:The patient is alert oriented x3 BP 112/78 Pulse 80 Ht 5' 4 (1.626 m) Wt 189 lb (85.73 kg) BMI 32.44 kg/m2 Neck is supple, there is no thyroid enlargement. There are no enlarged Lymph nodes CV: S1S2 normal in rhythm and rate Resp: CTA bilaterally Abd: soft, non tender, no organomegaly Ext: No edema Labs Lab Results Component Value Date TSH 10.92* 12/18/2011 Lab Results Component Value Date CHOLESTEROL 231* 12/18/2011 HDL 36* 12/18/2011 LDL CALCULATED Comment: LDL cholesterol not calculated. Triglyceride levels greater than 400 mg/dL invalidate calculated LDL results. Desirable range <100 mg/dL for patients with CHD or diabetes and <70 mg/dL for diabetic patients with known heart disease. 12/18/2011 LDL CHOLESTEROL, DIRECT 110 08/10/2011 TRIGLYCERIDE 458* 12/18/2011 ASSESSMENT: Encounter Diagnoses Name Primary? Unspecified hypothyroidism ??? Metabolic syndrome ??? History of gestational diabetes ??? Combined hyperlipidemia ??? Vitamin d deficiency ??? Anxiety PLAN: Orders Placed This Encounter ??? HgB A1C ??? CMP ??? TSH ??? LIPID PANEL WITH REFLEX DIRECT LDL (QUEST ONLY) ??? Generic Referral to Psychiatry ??? levothyroxine (SYNTHROID) 137 mcg Oral tablet ??? metFORMIN (GLUCOPHAGE) 500 mg Oral tablet ??? ergocalciferol (VITAMIN D2) 50,000 unit Oral capsule ??? ALPRAZolam (XANAX) 0.5 mg Oral tablet PRN alprazolam Needs to exercise daily. Continue 1 hour of exercise per day as she is doing Labs reviewed as well as targets. I talked to the patient about levothyroxine replacement, how it should taken fasting and 30 min away from food or other medications specifically vitamins and 4 hours away from Calcium supplementation. I also recommended the use of a brand name medication since its absorption is more reliable although if cost prohibitive, we can try the generic version. Thank you very much for allowing us to participate in this patient care. If you have any questions or concerns, please do not hesitate to contact us, I will keep you updated in this patient's progress and test results Have a great day, Sincerely yours Prudence Gates RESPIRATORY * Nahed France - 05/21/2012 3:04 PM CST Pt here for Thyroid F/U. Recent labs. See lab tab for results. B/G- 179 Pt had lunch. RESPIRATORY documented in this encounter Plan of Treatment Upcoming Encounters Date Type Department Care Team (Late st Contact Info) Description 09/14/2024 3:00 PM CDT Office Visit [facility]ascular - [address] [address] [place] [address] Marlys Mayer MD [address] [place] [address] Scheduled Referrals Name Type Priority Associated Diagnoses Order Schedule AMB REFERRAL TO PSYCHIATRY Outpatient Referral Routine Anxiety Ordered: 05/21/2012 documented as of this encounter Visit Diagnoses Diagnosis Unspecified hypothyroidism Metabolic syndrome Dysmetabolic Syndrome X History of gestational diabetes Personal history of gestational diabetes Combined hyperlipidemia Mixed hyperlipidemia Vitamin D deficiency Unspecified vitamin D deficiency Anxiety Anxiety state, unspecified documented in this encounter
--- OUTSIDE RECORDS SUMMARY | 2024-05-03 20:47 | XMS_ITS | Encounter Summary ---
Author Organization [facility] Address [address] [place] [address] Care Team Providers Care Sales Representative Adding Machines Name Role Phone Unavailable Primary Care Provider Unavailabl e Reason for Visit * Reason Onset Date Comments Medication Refill 12/21/2011 Encounter Details Date Type Department Care Team (Late Contact Info) Description 12/21/2011 Refill [facility] Endocrinology [address] [place] [address] Prudence Gates MD [address] [place] [address] Unspecified hypothyroidism (Primary Dx) Social History Tobacco [...] * Telephone Encounter - Suze Jackson - 12/21/2011 6:25 PM CDT Pharm says insurance won't Cover brand synthroid , pt says it about a 25.00 difference . Agrees to change to generic and see how she does . documented in this encounter Plan of Treatment Upcoming Encounters Date Type Department Care Team (Late Contact Info) Description 09/14/2024 3:00 PM CDT Office Visit [facility] Heart and Vascular - [facility] [address] [place] [address] Marlys Mayer MD [address] [place] [address] documented as of this encounter Visit Diagnoses Diagnosis Unspecified hypothyroidism- Primary documented in this encounter
--- OUTSIDE RECORDS SUMMARY | 2024-05-03 21:47 | XMS_ITS | Encounter Summary ---
Author Organization [facility] Address [address] [place] [address] Care Team Providers Care Video Library Assistant Name Role Phone Guerrero Middleton PA-C Primary Care Provide r Encounter Details Date Type Department Care Team (Late st Contact Info) Description 01/01/2024 Abstract [facility] Heart and Vascular At [facility] [address] [place] [address] Marlys Mayer MD [address] [place] [address] Social History Tobacco Use Types [...] [facility]) Heart [facility] Vascular - [facility] [address] [place] [phone] Marlys Mayer MD [address] [place] [address] documented as of this encounter Visit Diagnoses Not on filedocumented in this encounter Care Teams Video Library Assistant Relationship Specialty Start Date End Date Guerrero Middleton PA-C PCP - General Physician Entry Manager 02/13/18 documented as of this encounter
--- OUTSIDE RECORDS SUMMARY | 2024-05-03 21:47 | XMS_ITS | Encounter Summary ---
Author Organization [facility] Address [address] [place] [address] Care Team Providers Care Leather Stitcher Name Role Phone Guerrero Middleton PA-C Primary [...] you attend formerly [facility] or advent services? Never 08/21/2018 Do [...] and Vascular - [place] [address] [place] [address] Marlys Mayer MD [address] [place] [address] documented as of this encounter Visit Diagnoses Not on filedocumented in this encounter Care Teams Leather Stitcher Relationship Specialty Start Date End Date Guerrero Middleton PA-C PCP - General Physician Network Mgr 02/13/18 documented as of this encounter
--- OUTSIDE RECORDS SUMMARY | 2024-05-03 21:47 | XMS_ITS | Encounter Summary ---
Author Organization [facility] Address [address] [place] [address] Care Team Providers Care Launderette Attendant Name Role Phone Guerrero Middleton PA-C [...] How often do you attend [facility] or spiritism services? Never 08/21/2018 Do you [...] [facility] [place] [facility] - [place] [address] [place] [address] Marlys Mayer MD [address] [place] [address] documented as of this encounter Visit Diagnoses Not on filedocumented in this encounter Care Teams Launderette Attendant Relationship Specialty Start Date End Date Guerrero Middleton PA-C PCP - General Physician Golf Caddy 02/13/18 documented as of this encounter
--- OUTSIDE RECORDS SUMMARY | 2024-05-03 21:47 | XMS_ITS | Clinical Summary ---
Author Organization [facility] Address [address] [place] [address] Phone Care Team Providers Care Line Repairer Name Role Phone Guerrero Middleton PA-C [...] needed for Nausea/Emesis. 30 Tablet 09/26/2023 Active tzznly-ampuljki-xl ylase DR Wing) 36,000-114,000-180 ,000 unit capsule [...] be different from the original. 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 Never 08/21/2018 Do you [...] Comments Blood Pressure 112/70 04/20/2024 3:12 PM TAX TECHNICIAN Pulse 103 04/20/2024 3:12 PM TAX TECHNICIAN Temperature 36.5 ??C (97.7 ??F) 11/29/2023 10:58 AM C DT Respiratory Rate 21 11/29/2023 6:15 PM CDT Oxygen Saturation 96% 04/20/2024 3:12 PM TAX TECHNICIAN Inhaled Oxygen Concentration - - Weight 86.6 kg (191 lb) 04/20/2024 3:12 PM TAX TECHNICIAN Height 165.1 cm (5' 5 ) 04/20/2024 3:12 PM TAX TECHNICIAN Body Mass Index 31.78 04/20/2024 3:12 PM TAX TECHNICIAN Plan of Treatment Upcoming Encounters Date Type Department Care Team (Late st Contact Info) Description 09/14/2024 3:00 PM CDT Office Visit [facility] [address] [place] [address] Marlys Mayer MD [address] [place] [address] Health Maintenance Due Date Last [...] history exists Medical Devices Implanted Type Area Electric Sign Assembler Device Identifier Shelf Expiration Date Model / Serial / Lot Cath Hemodlys Glidespath 23cm [id number] Implanted:Qty : 1 on 04/10/2018 by Kayla Sheffield MD Catheter CR BARD[employer] [id number] 08/27/2019 [id number] / / [id number] Description:14.5fr x 23cm; R IJ Port-10/29/2018 Implanted:Qty : 2 on 10/29/2018 by Laverne Willoughby MD Explanted:Qty : 1 on 02/18/2019 by Michael Powell MD Port Right: Chest Wall CR BARD- ACCESS SYS 07/28/2019 / / [id number] Description:two 9.6fr fower flow apheresis ports placed by Dr. Willoughby Port- 0 Implanted:Qty : 1 on 05/11/2019 by Alfa Forrest MD Port Left: Chest Wall CR BARD- ACCESS SYS 08/26/2020 / / [id number] Stent Synergy Xd 4.0x12mm Evrlms Elut [id number] - [id number] Implanted:Qty : 1 on 11/29/2023 by Miguel Lewis MD at [facility] Stent N/A: Coronary [employer] GRISELDA [id number] 03/19/2024 [id number] / / [id number] Procedures Procedure Name Priority Date/Time Associated Diagnosis Comments LDL CHOLESTEROL, DIRECT Stat 09/19/2023 12:59 AM CDT HEMOGLOBIN A1C Routine 09/18/2023 10:18 PM CDT from Last 3 Months or Most Recently Relevant to Health Maintenance Results * LDL CHOLESTEROL, DIRECT (09/19/2023 12:59 AM CDT) LDL CHOLESTEROL, DIRECT 47 <100 mg/dL 09/19/2023 5:52 AM CDT [facility] Blood Venipuncture / Unknown 09/19/2023 12:59 AM CDT 09/19/2023 1:09 AM CDT [facility] - 09/19/2023 5:52 AM CDT LDL CHOLESTEROL [...] MD CHEMISTRY ORDERA BLES Performing Organization Address [facility] Co de Phone Number [facility] [employer]# [id number] [address] [place] [address] * (ABNORMAL) HEMOGLOBIN A1C (09/18/2023 10:18 PM CDT) [facility] HEMOGLOBIN A1C 9.7(H) <5.7 % 09/19/2023 10:59 AM CDT [facility] [employer] [facility] EST. AVG GLUCOSE, A1C 232 mg/dL 09/19/2023 10:59 AM T [facility] [facility] Blood Venipuncture / Unknown 09/18/2023 10:18 PM CDT 09/18/2023 10:26 PM CDT [facility] - 09/19/2023 10:59 AM CDT HGB A1C INTERPRETATION NORMAL: ? <5.7% PRE-DIABETES: 5.7 - 6.4% DIABETES: ? 6.5% OR GREATER Herlinda Mederos DO CHEMISTRY ORDERABLES Performing Organization Address [facility] Co de Phone Number [facility] [employer] [facility]# [id number] [address] [place] [address] from Last 3 Months or Most Recently Relevant to Health Maintenance Advance Directives For more information, please contact: [phone] * Full Code (Latest Code Status on [...] 12:11 AM 01/02/2021 4:26 PM Care Teams Line Repairer Relationship Specialty Start Date End Date Guerrero Middleton PA-C PCP - General Physician Flight Radio Officer 02/13/18
--- OUTSIDE RECORDS SUMMARY | 2024-05-03 21:47 | XMS_ITS | Clinical Summary ---
Author Organization [facility] Address [address] [address] Phone Care Team Providers Care Cellar Pumper Name Role Phone Jose G Palmer MD Unavailable [phone] Guerrero Middleton Primary Care Provider Social History [...] patient's age to complete this topic Insurance [facility] Care Teams Cellar Pumper Relationship Specialty Start Date End Date Guerrero Middleton PAC [address] [facility] [address] [place] [address] PCP - General Physician Grain Merchandising Manager 12/10/16 Jose G Palmer MD Consulting Physician Gastroenterology 12/10/16
--- OUTSIDE RECORDS SUMMARY | 2024-05-03 21:47 | XMS_ITS | Encounter Summary ---
Author Organization [facility] Address 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 Type 1 diabetes mellitus without complication Palpitations Syncope, unspecified syncope type Procedures MOBILE CARDIAC OUTPATIENT TELEMETRY Marlys Mayer MD [address] [place] [address] Referral ID Status Reason Start Date Expiration Date V isits Requested Visits Authorized [id number] Pending Review 11/18/2023 12/18/2024 1 1 Encounter Details Date Type Department Care Team (Latest Contact Info) Description 11/18/2023 2:45 PM CDT - 11/18/2023 11:59 PM CDT Hospital Encounter [facility] Diagnostic Cardiology Services [place] [address] [place] [address] Marlys Mayer MD [address] [place] [address] Discharge Disposition: Home or Self Care Social [...] as needed for Nausea/Emesis. 30 Tablet 09/26/2023 chjafw-foltedhu-eedml se DR (Marcella) 36,000-114,000-180,00 0 unit capsule [...] [facility] Heart [facility] V[facility] - [facility] [address] [place] [address] Marlys Mayer MD [address] [place] [address] documented as of this encounter Procedures Procedure Name Priority Date/Time Associated Diagnosis Comments MOBILE CARDIAC OUTPATIENT TELEMETRY Routine 12/22/2023 10:55 AM CDT Atherosclerosis of [place] coronary artery of [place] heart with stable angina pectoris Chylomicronemia syndrome Type 1 diabetes mellitus without complication Palpitations Syncope, unspecified syncope type documented in this encounter Results * MOBILE CARDIAC OUTPATIENT TELEMETRY (12/22/2023 10:55 AM CDT) Narrative Procedure Note Miguel Thomas MD - 12/22/2023 10:55 AM CDT [place], [place] [address] [employer] [facility] Report CSN: [id number] DATE OF SERVICE: STUDY Mobile cardiac outpatient [...] per minute. No arrhythmias were noted. RPF:MEDQ DID:[id number] Dictated by: Miguel Thomas MD, [facility] CC: Marlys Mayer MD Marlys Mayer MD CARDIAC SERVICES ORD ERABLES [facility] CLIA# [id number] [address] [place] [address], [address] [place] [address] documented in this encounter Visit Diagnoses Not on filedocumented in this encounter Care Teams Meat Pumper Relationship Specialty Start Date End Date Guerrero Middleton PA-C PCP - General Physician Stockroom Associate 02/13/18 documented as of this encounter
--- OUTSIDE RECORDS SUMMARY | 2024-05-03 21:47 | XMS_ITS | Encounter Summary ---
Author Organization [facility] Address [address] [place] [address] Care Team Providers Care Cash Posting Specialist Name Role Phone Guerrero Middleton PA-C Primary Care Provide r Reason for Referral * Eval and Treat (Routine) - Closed Specialty Diagnoses / Procedures Referred By Tequila bowman Referred To Contact Cardiac Rehabilitation Diagnoses Status post insertion of drug-eluting stent into left anterior descending (LAD) artery Dacia Lewis MD [address] [place] [address] [address] [place] [address] Referral ID Status Reason Start Date Expiration Date Visits Re quested Visits Authorized [id number] Closed 11/29/2023 11/28/2024 36 36 Reason for Visit * Auth/Cert Specialty Diagnoses / Procedures Referred By Tequila bowman Referred To Contact Cardiology Diagnoses 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 Interventional Care [address] [place] [phone] Dacia Lewis MD [address] [place] [address] Syncope, unspecified syncope type Discharge Disposition: Home [...] How often do you attend chur or quaker services? Never 08/21/2018 Do you [...] original note were not included. Discharge Summary [facility] Patient: Linda Mccray Robert : 1975 [id number]: [id number]: Date of Admission: 11/29/2023 Date of Discharge: [...] daily with meals. HOLD for 48h post [facility] Start taking on: December 02, 2023 Signed [...] Quantity: 180 Capsule Refills: 0 Generic drug: pbjtbi-ezdypvqh-qigdipu DR Dexcom G6 Sensor Device Change sensor [...] a 48 y.o. female presented for outpatient [facility] for syncope and fatigue with previous stents [...] located on the second floor of the [facility], [address]. Please call [phone] if you need to change the appointment Follow- up with your primary MD, Guerrero Middleton PA-C , in 1-2 weeks or as needed. Signed: MARGARET Kay [facility] 11/29/2023, 3:09 PM Time [...] and fever or chills Return to your air traffic instructor as instructed. documented in this encounter Medications at Time of Discharge Medication Sig Dispensed Refills Start Date End Date Blood-Glucose Sensor (Dexcom G7 Sensor) Device 05/13/2023 buPROPion HCL (WELLBUTRIN SR) 150 mg Sustained Release 12 hour tablet Take 1 Tablet by mouth daily. 11/13/2023 levothyroxine 200 mcg tablet Take 1 Tablet by mouth daily. 11/13/2023 metFORMIN (GLUCOPHAGE) 1,000 mg tablet Take 1 Tablet (1,000 mg) by mouth 2 times daily with meals. HOLD for 48h post [facility] 12/02/2023 losartan potassium (LOSARTAN ORAL) Take by mouth. buspirone HCl (BUSPAR ORAL) Take by mouth. LORazepam (ATIVAN) 1 mg tablet Take 1 mg by mouth every 6 hours as needed for Anxiety. ondansetron (ZOFRAN ODT) 4 mg Tablet, Rapid Dissolve Take 1 Tablet (4 mg) by mouth every 6 hours as needed for Nausea/Emesis. 30 Tablet 09/26/2023 oclesp-dwdudwcq-mbecu se (Creon) 36,000-114,000-180,00 0 unit capsule Take 2 [...] Lewis MD - 11/29/2023 1:39 PM CDT Hospitality House Supervisor Pre-Procedure History and Physical Note Patient: Linda Doss / 48 y.o. / male : 1975 CSN: [id number] Today's date: 11/29/23 Planned Procedure: LHP Indications: CAD hx TRACIE june 2023. [place] hx. HENDRIX. Palpitations. Appropriate history and physical [...] daily in the morning. 30 Tablet 0 zovecj-kamiqtsc-abwfvxx DR (Cremorro) 36,000-114,000-180,000 unit capsule Take 2 [...] sensors = 90 days) 9 Each 1 Brighter Future Challengecom G6 Transmitter Device Change transmitter every 90 [...] Dacia Lewis MD Heart and Vascular Interventions [facility] documented in this encounter Procedure Notes * Dacia Lewis MD - 11/29/2023 2:29 PM CDT CARDIAC CATHETERIZATION CORONARY ANGIOGRAM PCI MID LAD TRACIE x 1 LVgram Access: R radial artery Hemostasis: compression band Indications: increasing HENDRIX/CP, hx CAD hx TRACIE OM and RCA june 2023. Mod mid LAD. [place] hx. Palpitations. AUC: Indications: New Onset Angina [...] right radial artery and placed a 6 Angolan sheath via the modified Seldinger technique. We [...] Continue Brilinta as has been on for ACS/MO since June 2023; continue until June 2024 as planned If she still has some dyspnea symptoms, doesn't feel well after PCI today could change Brilinta to clopidogrel at some point to see if helps ASA 81mg daily indefinitely Statin and other home meds to continue Followup with Dr. Mayer in few weeks Dacia Lewis MD [facility] - Heart and Vascular Interventions ([place] [facility]) [address] [facility] [address] [place] [address] documented in this encounter Miscellaneous Notes * Care Plan - Ligia Banks RN - 11/29/2023 3:47 PM CDT Cardiac Rehab Phase 1: Met with patient following her PCI/TRACIE to LAD. She had a recent PCI/TRACIE X2 in June ([facility]). Reviewed the importance of continuing her Brilinta and Aspirin. Reviewed her Lipid profile with her. She stated that she has a history of Chronic Pancreatitis. Reviewed the importance of managing her Diabetes. The follow topics were addressed and [facility] packet/folder provided; [] [place] [x] CAD [] Heart Disease/Lifestyle Modification [] CHF [x]Discussed [facility] Cardiac Rehab Program of monitored exercise and education. Pt is interested in attending at a [facility] location. Location preference is [facility] . [x] [facility] Cardiac Rehabilitation Outpatient Referral Placed Per Protocol. [...] to ER. (Discuss further exercise guidelines with air traffic instructor during follow up appointment.) [x] Psychological aspects of heart disease (anger, depression,anxiety). Reduce stress and avoid situations that make you tense or angry. Talk with PMD for any signs of depression or anxiety. Written Information given in [employer] CAD packet: [x] [place] [employer]: What is Angina [x] [place] [employer]: Your Heart and How It Works [x] [place] [employer]: How Can I Make My Lifestyle Healthier [x] Amaya: Taking Care of Your Heart at Home [x] Amaya: Angina Pectoris [x] NTG instructions (pink card) [x] Amaya Patient Resources guide [x] AMAYA Important Note Regarding Medications and not to stop without first checking with doctor. EXTRAS: [] [place] [employer]: Brochure: What is Coronary Bypass Surgery? [x] [place] [employer]: What is a Stent? [] [place] [employer]: How Can I Lower High Cholesterol [] [place] [employer]: How Can I Cook Healthy [] [place] [employer]: How Do I Follow a Healthy Diet [] [place] [employer]: HF and your Ejection Fraction Explained [] [place] [employer]: What is Atrial Fibrillation? [] [place] [employer]: Diet and Nutrition: What about eating out? [] [place] [employer]: Why Should I Limit My Sodium? [] [place] [employer]: Heart Failure Medications [] [place] [employer]: Heart Failure: Reading Food Labels to Look for Sodium [] [place] [employer]: Salt (sodium) can be sneaky [] Amaya: Fluid Retention and Heart Failure [] Amaya: Sodium Facts [x] Amaya: You Can Quit [x] Amaya Road to [place] brochure [] Amaya: Smoking Cessation: There are [...] [facility] [address] [place] [address] Marlys Mayer MD [address] [place] [address] Scheduled Referrals Name Type Priority [...] SYSTEM - 11/29/2023 2:36 PM CDT ? [facility] ? [address], [place] [address] ? Test Date: ?2023-11-29 Pat Name: ? LINDA CRAFTOCTAVIO ?Department: ?? 0 ?Room: ? G005 1 Gender: ? Female ? Risk Assessment Analyst: ? : ?1975 ? Requested By: DACIA Valdez Order Number: [id number] ? Reading MD: ?? Fredi Grady ? Measurements Intervals ?[place] ? Rate: ? 78 ? P: ?56 WY: ? 159 ?QRS: ?55 QRSD: ? 85 ? T: ?10 QT: ? 405 ? QTc: ?461 ? Interpretive Statements SINUS RHYTHM Electronically Signed On 11-29-2023 14:36:49 CDT by Fredi Grady Procedure Note Provider, 11/29/2023 [facility] [address] [place] [address] Test Date: 2023-11-29 Pat Name: LINDA DOSS Department: 0 Room: [facility] Gender: Female Risk Assessment Analyst: : 1975 Requested By: DACIA Valdez Order Number: [id number] Nato MD: Fredi Grady Measurements Intervals [place] Rate: 78 P: 56 WY: 159 QRS: 55 QRSD: 85 T: 10 QT: 405 QTc: 461 Interpretive Statements SINUS RHYTHM Electronically Signed On 11-29-2023 14:36:49 CDT by Fredi Grady Dacia Lewis MD ECG ORDERABLES Performing Organization Address [facility] Co de Phone Number INTERFACE SYSTEM Refer to clinic/hospital department * (ABNORMAL) POC ACTIVATED CLOTTING TIME (11/29/2023 2:13 PM CDT) ACTIVATED CLOTTING TIME POC 256(H) 74 - 137 sec 11/29/2023 2:13 PM CDT [facility] Comment:ACT testing performe d on ISTAT ACT-Kaolin cartridge. Blood 11/29/2023 2:13 PM CDT 11/29/2023 2:19 PM CDT Dacia Lewis MD POINT OF CARE TESTIN G Performing Organization Address [facility]/State/ZIP Co de Phone Number [facility]# [id number] [address] [facility] [place] [address] * LEFT HEART CATH, PERCUTANEOUS CORONARY INTERVENTION, LEFT VENTRICULOGRAM (11/29/2023 2:12 PM CDT) 11/29/2023 1:15 PM CDT Narrative [facility] - 11/29/2023 2:41 PM [...] Continue Brilinta as has been on for ACS/MO since June 2023; continue until June 2024 as planned If she still has some dyspnea symptoms, doesn't feel well after PCI today could change Brilinta to clopidogrel at some point to see if helps ASA 81mg daily indefinitely Statin and other home meds ??to continue Followup with Dr. Mayer in few weeks Dacia Lewis MD [facility] - Heart and Vascular Interventions ([place] [facility]) [address] [address] [place] [address] Procedure Details CARDIAC CATHETERIZATION CORONARY ANGIOGRAM PCI MID LAD TRACIE x 1 LVgram Access: R radial artery Hemostasis: compression band Indications: increasing HENDRIX/CP, hx CAD hx TRACIE OM and RCA june 2023. Mod mid LAD. [place] hx. Palpitations. ?? AUC: Indications: New Onset [...] right radial artery and placed a 6 Angolan sheath via the modified Seldinger technique. We [...] 3. Dacia Lewis MD CUP CATH ORDERABLES [facility] CLIA #[id number] [address] [facility] [place] [address] documented in this encounter Visit Diagnoses Diagnosis Status post insertion of drug-eluting stent into left anterior descending (LAD) artery- Primary Syncope, unspecified syncope type Lightheadedness Dizziness and giddiness S/P right coronary artery (RCA) stent placement HENDRIX (dyspnea on exertion) Other dyspnea and respiratory abnormality Atherosclerosis of washoe coronary artery of washoe heart with unstable angina pectoris documented in [...] Ligia Vyas RN)[phone] (Given - Provider: Ligia yVas RN)1352 (Given - Provider: Ligia Vyas RN)1354 [...] MD) documented in this encounter Care Teams Cash Posting Specialist Relationship Specialty Start Date End Date Guerrero Middleton PA-C PCP - General Physician Flatcar Whacker 02/13/18 documented as of this encounter
--- OUTSIDE RECORDS SUMMARY | 2024-05-03 21:47 | XMS_ITS | Encounter Summary ---
Author Organization [facility] Address [address] [place] [address] Care Team Providers Care Swimming Coach Or Instructor Name Role Phone Jose G Palmer MD Unavailable [phone] Guerrero Middleton Primary Care Provider Encounter Details Date Type Department Care Team (Late st Contact Info) Description 05/08/2021 11:30 AM SANITARIAN Rapid Evaluation [facility] Community Testing [facility] [address] [place] [address] Social History Tobacco Use Types Packs/Day Years [...] on filedocumented in this encounter Care Teams Swimming Coach Or Instructor Relationship Specialty Start Date End Date Guerrero Middleton PAC [address] [place] [address] PCP - General Physician Ratings Analyst 12/10/16 Jose G Palmer MD Consulting Physician Gastroenterology 12/10/16 documented as of this encounter
--- OUTSIDE RECORDS SUMMARY | 2024-05-03 21:47 | XMS_ITS | Encounter Summary ---
Author Organization [facility] Address [address] [place] [address] Care Team Providers Care Neuropsychology Division Chief Name Role Phone Guerrero Middleton PA-C Primary Care Provide r Reason for Visit * Reason Onset Date Comments same day PCI follow-up 11/30/2023 Encounter Details Date Type Department Care Team (Late st Contact Info) Description 11/30/2023 Telephone [facility] Heart and Vascular At [place] [address] [place] [address] [place] [address] [place] [address] same day PCI follow-up Social History Tobacco [...] often do you attend chur ch or mandaeism services? Never 08/21/2018 Do you [...] symptoms. The patient will continue on her PROFESSOR OF ECONOMICS brilinta for P2Y12 inhibitor and is taking that and aspirin asprescribed. The patient has a follow up appointment scheduled on 12/26/2023 a 1030 documented in this encounter Plan of Treatment Upcoming Encounters Date Type Department Care Team (Late st Contact Info) Description 09/14/2024 3:00 PM CDT Office Visit [facility] - [facility] [address] [address] [address] [address] [place] [address] Marlys Mayer MD [address] [place] [address] documented as of this encounter Visit Diagnoses Not on filedocumented in this encounter Care Teams Neuropsychology Division Chief Relationship Specialty Start Date End Date Guerrero Middleton PA-C PCP - General Physician Director Of Primary Care 02/13/18 documented as of this encounter
--- OUTSIDE RECORDS SUMMARY | 2024-05-03 21:47 | XMS_ITS | Encounter Summary ---
Author Organization [facility] Address [address] [place] [address] Care Team Providers Care Fee Clerk Name Role Phone Guerrero Middleton PA-C Primary Care Provide r Reason for Visit * Reason Comments Follow Up No cp, sob or mj carr Encounter Details Date Type Department Care Team (Latest Contact Info) Description 12/26/2023 10:30 AM CDT Office Visit [facility] Heart and Vascular At [address] [place] [address] Cris Sunshine NP [address] [place] [address] [address] [place] [address] Coronary artery disease involving [place] coronary artery of [place] heart without angina pectoris (Primary Dx); Mixed [...] this encounter Progress Notes * Cris Sunshine, TURBO ELECTRIC OPERATOR - 12/26/2023 10:30 AM CDT [facility] Heart and Vascular Progress Note History of Present Illness: I had the pleasure of seeing Casandra Jones in the [facility] Heart and Vascular office today. She is a pleasant 48 y.o. female, with past medical history of AL 06/2003, CAD s/p PCI, chylomicronemia syndrome,DM and syncope. Last OV 11/18/23 to establish care. She had syncopal episodes in june while visiting mother in [place]. Had AL with with 3 TRACIE. Since then she had been fatigue and c/o palpitations. She underwent LHCon 11/29/23 which was notable for severe mid LAD stenosis (had progressed since june) treated with TRACIE x1. Overall she is doing well. She denies any chest pain, pressure or discomfort. No shortness of breath. She still has dizziness episodes. Primary Director Investor Relations is Dr. Mayer Previous Cardiovascular Procedures: Echo [...] 200 mcg tablet 1 Tablet, Oral, DAILY orvxfn-uojgsdwu-xnlzeki DR (Creon) 36,000-114,000-180,000 unit capsule 2 Capsules, [...] losartan depending on her BP MARGARET Hastings [facility] - Heart and Vascular [facility] [address] [place] [address] Portions of this note may be dictated using voice recognition software. Variances in spelling and vocabulary are possible and unintentional. Not all errors are caught/corrected documented in this encounter Plan of Treatment Upcoming Encounters Date Type Department Care Team (Late st Contact Info) Description 09/14/2024 3:00 PM CDT Office Visit [facility] Heart and Vascular - [place] [address] [place] [address] Marlys Mayer MD [address] [place] [address] documented as of this encounter Visit Diagnoses Diagnosis Coronary artery disease involving [place] coronary artery of [place] heart without angina pectoris- Primary Mixed hyperlipidemia documented in this encounter Care Teams Fee Clerk Relationship Specialty Start Date End Date Guerrero Middleton PA-C PCP - General Physician Nursing Program Chair 02/13/18 documented as of this encounter
--- OUTSIDE RECORDS SUMMARY | 2024-05-03 21:47 | XMS_ITS | Encounter Summary ---
Author Organization [facility] Address [address] [place] [address] Care Team Providers Care Proof Technician Name Role Phone Guerrero Middleton PA-C Primary Care Provide r Encounter Details Date Type Department Care Team (Late st Contact Info) Description 04/14/2024 Abstract [facility] Heart and Vascular At [facility] [address] [place] [address] Marlys Mayer MD [address] [facility] [address] [facility] [address] [place] [address] Social History Tobacco Use Types [...] often do you attend chur ch or roman catholic services? Never 08/21/2018 Do [...] [facility] [address] [place] [address] Marlys Mayer MD [address] [place] [address] documented as of this encounter Visit Diagnoses Not on filedocumented in this encounter Care Teams Proof Technician Relationship Specialty Start Date End Date Guerrero Middleton PA-C PCP - General Physician Distribution Operations Supervisor 02/13/18 documented as of this encounter
--- OUTSIDE RECORDS SUMMARY | 2024-05-03 21:47 | XMS_ITS | Encounter Summary ---
Author Organization [facility] Address [address] [place] [address] Care Team Providers Care Campus Recruiting Internship Name Role Phone Guerrero Middleton PA-C Primary [...] you attend [facility] or anabaptist services? Never 08/21/2018 Do you [...] and Vascular - [place] [address] [place] [address] Marlys Mayer MD [address] [place] [address] documented as of this encounter Visit Diagnoses Not on filedocumented in this encounter Care Teams Campus Recruiting Internship Relationship Specialty Start Date End Date Guerrero Middleton PA-C PCP - General Physician Assistant Guest Services Manager 02/13/18 documented as of this encounter
--- OUTSIDE RECORDS SUMMARY | 2024-05-03 21:47 | XMS_ITS | Encounter Summary ---
Author Organization [facility] Address [address] [place] [address] Care Team Providers Care Tub Rider Name Role Phone Jose G Palmer MD Unavailable [phone] Guerrero Middleton Primary Care Provider Encounter Details Date Type Department Care Team (Late st Contact Info) Description 05/08/2021 Lab Requisition [facility] Community Testing [facility] [address] [place] [address] Jeff Petersen MD [address] [place] [address] [place] [address] Social History Tobacco Use Types [...] PCR [facility] ONLY Routine 05/08/2021 1:49 PM BELL CLERK documented in this encounter Visit Diagnoses Not on filedocumented in this encounter Care Teams Tub Rider Relationship Specialty Start Date End Date Guerrero Middleton PAC [address] [place] [address] PCP - General Physician Supervisor Shaving And Splitting 12/10/16 Jose G Palmer MD Consulting Physician Gastroenterology 12/10/16 documented as of this encounter
--- OUTSIDE RECORDS SUMMARY | 2024-05-03 21:47 | XMS_ITS | Encounter Summary ---
Author Organization [facility] Address [address] [place] [address] Care Team Providers Care Cnc Mill Programmer Name Role Phone Guerrero Middleton PA-C Primary Care Provide r Reason for Visit * Reason Onset Date Comments results 12/25/2023 Encounter Details Date Type Department Care Team (Late st Contact Info) Description 12/25/2023 Telephone [facility] Heart and Vascular At [facility] [address] [place] [address] Marlys Mayer MD [address] [place] [address] [address] [place] [address] results Social History Tobacco Use [...] AM CDT Pt notified aravindter results via [employer]. Patient has OV tomorrow 12/25 with ANNA [...] 9:23 AM CDT ----- Result received [facility] documented in this encounter Plan of Treatment Upcoming Encounters Date Type Department Care Team (Late st Contact Info) Description 09/14/2024 3:00 PM CDT Office Visit [facility] [address] [place] [address] Marlys Mayer MD [address] [place] [address] documented as of this encounter Visit Diagnoses Not on filedocumented in this encounter Care Teams Cnc Mill Programmer Relationship Specialty Start Date End Date Guerrero Middleton PA-C PCP - General Physician Grain Ii Farmworker 02/13/18 documented as of this encounter
--- OUTSIDE RECORDS SUMMARY | 2024-05-03 21:47 | XMS_ITS | Encounter Summary ---
Author Organization [facility] Address [address] [place] [address] Care Team Providers Care Construction Producer Name Role Phone Guerrero Middleton PA-C [...] 08/21/2018 How often do you attend [facility] or denominational services? Never 08/21/2018 Do [...] [facility] Heart and Vascular - [place] [address] [place] [address] Marlys Mayer MD [address] [place] [address] documented as of this encounter Visit Diagnoses Not on filedocumented in this encounter Care Teams Construction Producer Relationship Specialty Start Date End Date Guerrero Middleton PA-C PCP - General Physician Rating Clerk 02/13/18 documented as of this encounter
--- OUTSIDE RECORDS SUMMARY | 2024-05-03 21:47 | XMS_ITS | Encounter Summary ---
Author Organization [facility] Address [address] [place] [address] Care Team Providers Care Trucker Name Role Phone Guerrero Middleton PA-C Primary Care Provide r Reason for Visit * Reason Onset Date Comments cath 2023 Encounter Details Date Type Department Care Team (Late st Contact Info) Description 2023 Telephone [facility] Heart and Vascular At [facility] [address] [place] [address] Marlys Mayer MD [address] [place] [address] cath Social History Tobacco Use [...] on urgency. Please check in at 11AM, [facility], 2nd floor registration, right off the elevators. [facility] cardiac catheterization, scheduled on November 28 at [...] hours following the procedure, must have a regional owner operator truck driver ? Bring an overnight bag, in case you have to spend the night. Please call me if you have questions, Angie RN Phone number: [phone] documented in this encounter Plan of Treatment Upcoming Encounters Date Type Department Care Team (Late st Contact Info) Description 09/14/2024 3:00 PM CDT Office Visit [facility] - [facility] [address] [place] [address] Marlys Mayer MD [address] [place] [address] documented as of this encounter Procedures Procedure Name Priority Date/Time Associated Diagnosis Comments PT AND APTT Routine 11/26/2023 12:34 PM CDT Abnormal coagulation profile CBC WITH DIFFERENTIAL Routine 11/26/2023 12:34 PM CDT Preoperative cardiovascular examination BASIC METABOLIC PANEL Routine 11/26/2023 12:34 PM CDT Preoperative cardiovascular examination documented in this encounter Results * PT AND APTT (11/26/2023 12:34 PM CDT) [facility] PTT 30 23 - 32 sec dELiAsWayne Eagle Comment: This test has not been validated for monitoring unfractionated heparin therapy. For testing that is validated for this type of therapy, please refer to the Heparin Anti-Xa assay (test code 99718). For additional information, please refer to http://education.[employer]aTrust/faq/SBP530 (This link is being provided for informational/educational purposes only.) INR 0.9 Cj Eagle Comment: Reference Range ? 0.9-1.1 Moderate-intensity Warfarin Therapy 2.0-3.0 Higher-intensity Warfarin Therapy ?? 3.0-4.0 PROTIME 9.7 9.0 - 11.5 sec dELiAsWayne Eagle Comment: FASTING:YES FASTING: YES Test Performed at: [place] [address] [place], [place] ??[address] Kamryn Farris Blood 11/26/2023 12:3 4 PM CDT 11/26/2023 12:35 PM CDT Marlys Mayer MD HEMATOLOGY ORDERABLE S [facility] [phone] [facility] [place] [address] [place] [address] * CBC WITH DIFFERENTIAL (11/26/2023 12:34 PM [...] Comment: FASTING:YES FASTING: YES Test Performed at: [place] [address] [place] ??[phone] [facility] [place] [facility] Blood 11/26/2023 12:3 4 PM CDT 11/26/2023 12:35 PM CDT Marlys Mayer MD HEMATOLOGY ORDERABLE S Performing Organization Address City/[facility] Phone Number [facility] [phone] [facility] [place] [address] [place] [address] * (ABNORMAL) BASIC METABOLIC PANEL (11/26/2023 12:34 PM CDT) GLUCOSE 125(H) 65 - 99 mg/dL [facility]ick[facility] gracie Eagle Comment: ? Fasting reference interval For someone without known diabetes, a glucose value between 100 and 125 mg/dL is consistent with prediabetes and should be confirmed with a follow-up test. BUN 14 7 - 25 mg/dL [facility] CREATININE 0.57 0.50 - 0.99 mg/dL [facility] gracie Fco GFR 112 > OR = 60 mL/min/1. 73m2 [facility] gracie [facility] BUN/CREAT RATIO SEE NOTE: 6 - 22 (calc) dELiAs-S gracie Eagle Comment: ?? Not Reported: BUN and Creatinine are within ?? reference range. ? SODIUM 140 135 - 146 mmol/L dELiAs-S [employer] Fco POTASSIUM 4.3 3.5 - 5.3 mmol/L [facility] gracie Fco CHLORIDE 104 98 - 110 mmol/L [facility] gracie Fco CO2 28 20 - 32 mmol/L [facility] gracie Fco CALCIUM 9.5 8.6 - 10.2 mg/dL [facility] gracie Eagle Comment: FASTING:YES FASTING: YES Test Performed at: [place] [address] [place] ??[phone] [facility] Vo Blood 11/26/2023 12:3 4 PM CDT 11/26/2023 12:35 PM CDT Marlys Mayer MD CHEMISTRY ORDERABLES [facility] [phone] [place] [address] [place] [address] documented in this encounter Visit Diagnoses Diagnosis Preoperative cardiovascular examination- Primary Pre-operative cardiovascular examination Abnormal coagulation profile documented in this encounter Care Teams Trucker Relationship Specialty Start Date End Date Guerrero Middleton PA-C PCP - General Physician Roll Picker 02/13/18 documented as of this encounter
--- OUTSIDE RECORDS SUMMARY | 2024-05-03 21:47 | XMS_ITS | Encounter Summary ---
Author Organization [facility] Address [address] [place] [address] Care Team Providers Care Door To Door Fundraising Collector Name Role Phone Guerrero Middleton PA-C Primary Care Provide r Reason for Visit * Reason Comments Follow Up Coronary artery dise ase involving [place] coronary artery of [place] heart without angina pectoris Encounter Details Date Type Department Care Team (Late st Contact Info) Description 04/20/2024 3:00 PM CULINARY ARTS TEACHER Office Visit [facility] Heart and Vascular - [facility] [address] [place] [address] Marlys Mayer MD [address] [place], [place] [address] Coronary artery disease involving [place] coronary artery of [place] heart without angina pectoris (Primary Dx); Type [...] Comments Blood Pressure 112/70 04/20/2024 3:12 PM CULINARY ARTS TEACHER Pulse 103 04/20/2024 3:12 PM CULINARY ARTS TEACHER Temperature - - Respiratory Rate - - Oxygen Saturation 96% 04/20/2024 3:12 PM CULINARY ARTS TEACHER Inhaled Oxygen Concentration - - Weight 86.6 kg (191 lb) 04/20/2024 3:12 PM CULINARY ARTS TEACHER Height 165.1 cm (5' 5 ) 04/20/2024 3:12 PM CULINARY ARTS TEACHER Body Mass Index 31.78 04/20/2024 3:12 PM CULINARY ARTS TEACHER documented in this encounter Progress Notes * Nai Zuniga - 04/20/2024 3:18 PM CST Patient denies chest pain, shortness of breath, swelling in legs. Pt states dizziness, headaches, lightheadedness occasionally. NARY ARTS TEACHER * Marlys Mayer MD - 04/20/2024 3:15 PM CST [facility] HEART AND VASCULAR Follow-up Visit Casandra Mccray Bryansergio, a 48 y.o. female returns for follow-up of these problems: ICD-10-CM ICD-9-CM 1. Coronary artery disease involving [place] coronary artery of [place] heart without angina [id number] 414.01 2. Type 1 diabetes mellitus without [...] hours asneeded for Nausea/Emesis. 30 Tablet 0 fkqcyy-hcdyklst-frfnlpn DR (Creon) 36,000-114,000-180,000 unit capsule Take 2 [...] cath performed by Miguel Lewis MD at [facility] INVASIVE CARDIOLOGY CO CATH PLMT L HRT & ARTS W/NJX & ANGIO IMG S&I N/A 11/29/2023 Left Ventriculogram performed by Miguel Lewis MD at [facility] INVASIVE CARDIOLOGY CO ESOPHAGOGASTRODUODENOSCOPY TRANSORAL DIAGNOSTIC N/A 03/08/2018 ESOPHAGOGASTRODUODENOSCOPY performed by Ceasar Vega MD at [facility] GI LAB Social History Socioeconomic History Marital status: Spouse name: Not on file Number of children: Not on file Years of education: Not on file Highest education level: Not on file Occupational History Employer: [employer] Tobacco Use Smoking status: Every Day Current [...] ICD-10-CM ICD-9-CM 1. Coronary artery disease involving [place] coronary artery of [place] heart without angina [id number] 414.01 2. 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 Chronic recurrent pancreatitis K86.1 577.1 HDL 29 LDL <30 TRIGS 356 Plan Discussed lifestyle Medications: Continue current medications Investigate newly released injectable drug for triglycerides- Olezarsen, Tryngolza- not on formulary -call [facility] specialty pharmacy Diagnostic Tests: Lipid panel q 2-3 mos Follow-up: Next OV in 4 mos or sooner if new or worsening cardiac symptoms NARY ARTS TEACHER documented in this encounter Plan of Treatment Upcoming Encounters Date Type Department Care Team (Late st Contact Info) Description 09/14/2024 3:00 PM CDT Office Visit [facility] Heart and Vascular - [place] [address] [address] [address] [place] [address] Marlys Mayer MD [address] [place] [address] documented as of this encounter Visit Diagnoses Diagnosis Coronary artery disease involving [place] coronary artery of [place] heart without angina pectoris- Primary Type 1 diabetes mellitus without complication Type I (juvenile type) diabetes mellitus without mention of complication, not stated as uncontrolled 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
--- OUTSIDE RECORDS SUMMARY | 2024-05-03 21:47 | XMS_ITS | Encounter Summary ---
Author Organization [facility] Address [address] [place] [address] Care Team Providers Care Cardiac Nurse Specialist Name Role Phone Guerrero Middleton PA-C Primary Care Provide r Encounter Details Date Type Department Care Team (Late st Contact Info) Description 11/19/2023 Abstract [facility] V[facility] [address] [place] [address] Marlys Mayer MD [address] [place] [address] Social History Tobacco Use Types Packs/Day Years [...] [facility] - [facility] [address] [place] [address] Marlys Mayer MD [address] [place] [address] [place] [address] documented as of this encounter Visit Diagnoses Not on filedocumented in this encounter Care Teams Cardiac Nurse Specialist Relationship Specialty Start Date End Date Guerrero Middleton PA-C PCP - General Physician Combination Machine Tool Operator 02/13/18 documented as of this encounter
--- OUTSIDE RECORDS SUMMARY | 2024-05-03 21:47 | XMS_ITS | Encounter Summary ---
Author Organization [facility] Address [address] [place] [address] Care Team Providers Care Cooling Pan Tender Name Role Phone Guerrero Middleton PA-C Primary Care Provide r Reason for Visit * Reason Onset Date Comments Medication Question 03/23/2024 Encounter Details Date Type Department Care Team (Late st Contact Info) Description 03/23/2024 Telephone [facility] Heart and Vascular At [facility] [address] [place] [address] Marlys Mayer MD [address] [place] [address] [address] [place] [address] Medication Question Social History Tobacco [...] is contraindicated in pts with hx of HI/ CAD. It increases your risk of HI. I recommend speaking with your meter tester primary for other pain relieving options. STRATION CLERK * Telephone Encounter - Angie Blackburn RN - 03/25/2024 11:04 AM REGISTRATION CLERK Spoke to patient regarding Celebrex. Patient has [...] most recent cath in November 2023,stent placed. STRATION CLERK * Telephone Encounter - Lacey Brito - 03/23/2024 9:46 AM CST Patient called stated her PCP trying to wing her off Ibuprofen and Tylenol and wanted to prescribe Clebrex. Please give patient a call back at [phone]. STRATION CLERK documented in this encounter Plan of Treatment Upcoming Encounters Date Type Department Care Team (Late st Contact Info) Description 09/14/2024 3:00 PM CDT Office Visit [facility] Heart and Vascular - [place] [address] [place] [address] Marlys Mayer MD [address] [place] [address] documented as of this encounter Visit Diagnoses Not on filedocumented in this encounter Care Teams Cooling Pan Tender Relationship Specialty Start Date End Date Guerrero Middleton PA-C PCP - General Physician Medicare Nurse 02/13/18 documented as of this encounter
--- OUTSIDE RECORDS SUMMARY | 2024-05-03 21:47 | XMS_ITS | Encounter Summary ---
Author Organization [facility] Address [address] [place] [address] Care Team Providers Care Liquid Loader Name Role Phone Guerrero Middleton PA-C Primary Care Provide r Reason for Visit * Auth/Cert Specialty Diagnoses / Procedures Referred By Contac t Referred To Contact Cardiology Diagnoses Atherosclerotic heart disease of mentasta coronary artery without angina pectoris Fatigue Syncope and collapse CAD, Fatigue, Syncope Procedures NV CATH PLMT L HRT & ARTS W/NJX & ANGIO IMG S&I Left heart cath Dacia Lewis MD [address] [place] [address] [address] [place] [address] [facility] [place] [address] [place] [address] Referral ID Status Reason Start Date Expiration Date Visits Re quested Visits Authorized [id number] 1 1 Encounter Details Date Type Department Care Team (Late st Contact Info) Description 11/29/2023 2:00 PM CDT - 11/29/2023 3:00 PM CDT Surgery [facility] [place] [address] [place] [address] Dacia Lewis MD [address] [place] [address] [address] [place] [address] Left heart cath Surgery Details Date/Time Status Location OR Service Patient Class Case Class Case Type Trauma Case? 11/29/2023 2:00 PM Posted [facility] INVASIVE CARDIOLOGY [facility] CCL 3 Interventional Cardiology [...] original note were not included. Discharge Summary [facility] Heart [facility] Vascular Patient: Linda Doss : 1975 [id number]: [id number]: Date of Admission: 11/29/2023 Date of Discharge: [...] daily with meals. HOLD for 48h post [facility] Start taking on: December 02, 2023 [...] Quantity: 180 Capsule Refills: 0 Generic drug: rkqesb-jkmrnzos-cudkfqx DR Dexcom G6 Sensor Device Change sensor [...] a 48 y.o. female presented for outpatient [facility] for syncope and fatigue with previous [...] located on the second floor of the [facility], [address]. Please call [phone] if you need to change the appointment Follow- up with your primary MD, Guerrero Middleton PA-C , in 1-2 weeks or as needed. Signed: MARGARET Kay [facility] Vascular 11/29/2023, 3:09 PM [...] and fever or chills Return to your looper fixer as instructed. documented in this encounter Medications [...] daily with meals. HOLD for 48h post [facility] 12/02/2023 losartan potassium (LOSARTAN ORAL) Take by mouth. buspirone HCl (BUSPAR ORAL) Take by mouth. LORazepam (ATIVAN) 1 mg tablet Take 1 mg by mouth every 6 hours as needed for Anxiety. ondansetron (ZOFRAN ODT) 4 mg Tablet, Rapid Dissolve Take 1 Tablet (4 mg) by mouth every 6 hours as needed for Nausea/Emesis. 30 Tablet 09/26/20[address] vblphp-lxppmbin-tdmxm se DR (Creon) 36,000-114,000-180,00 0 unit capsule [...] in the morning. 30 Tablet 09/26/2023 12/26/2023 [employer] G6 Sensor Device Change sensor every 10 days. (9 sensors = 90 days) 9 Each 1 05/16/2020 12/26/2023 [employer] G6 Transmitter Device Change transmitter every 90 days 1 Each 05/16/2020 12/26/2023 documented as of this encounter [...] Lewis MD - 11/29/2023 1:39 PM CDT [place] Pre-Procedure History and Physical Note Patient: Linda Doss / 48 y.o. / male : 1975 CSN: [id number] Today's date: 11/29/23 Planned Procedure: LHP Indications: CAD hx TRACIE june 2023. RI hx. HENDRIX. Palpitations. Appropriate history and physical [...] daily in the morning. 30 Tablet 0 usqheg-igotiavz-xazekpq DR [place]) 36,000-114,000-180,000 unit capsule Take 2 [...] Dacia Lewis MD Heart and Vascular Interventions [facility] documented in this encounter Procedure Notes * Dacia Lewis MD - 11/29/2023 2:29 PM CDT CARDIAC CATHETERIZATION CORONARY ANGIOGRAM PCI MID LAD TRACIE x 1 LVgram Access: R radial artery Hemostasis: compression band Indications: increasing HENDRIX/CP, hx CAD hx TRACIE OM and RCA june 2023. Mod mid LAD. RI hx. Palpitations. AUC: Indications: New Onset Angina [...] right radial artery and placed a 6 Lao sheath via the modified Seldinger technique. We [...] Continue Brilinta as has been on for ACS/RI since June 2023; continue until June 2024 as planned If she still has some dyspnea symptoms, doesn't feel well after PCI today could change Brilinta to clopidogrel at some point to see if helps ASA 81mg daily indefinitely Statin and other home meds to continue Followup with Dr. Mayer in few weeks Dacia Lewis MD [facility] - Heart and Vascular Interventions ([place] [facility]) [address] [facility] [address] [place] [address] documented in this encounter Miscellaneous Notes * Care Plan - Ligia Banks RN - 11/29/2023 3:47 PM CDT Cardiac Rehab Phase 1: Met with patient following her PCI/TRACIE to LAD. She had a recent PCI/TRACIE X2 in June ([facility]). Reviewed the importance of continuing her Brilinta and Aspirin. Reviewed her Lipid profile with her. She stated that she has a history of Chronic Pancreatitis. Reviewed the importance of managing her Diabetes. The follow topics were addressed and [employer] packet/folder provided; [] RI [x] CAD [] Heart Disease/Lifestyle Modification [] CHF [x]Discussed [facility] Cardiac Rehab Program of monitored exercise and education. Pt is interested in attending at a [facility] location. Location preference is [facility] . [x] [facility] Cardiac Rehabilitation Outpatient Referral Placed Per [...] to ER. (Discuss further exercise guidelines with looper fixer during follow up appointment.) [x] Psychological aspects of heart disease (anger, depression,anxiety). Reduce stress and avoid situations that make you tense or angry. Talk with PMD for any signs of depression or anxiety. Written Information given in [facility] CAD packet: [x] [employer]: What is Angina [x] [employer]: Your Heart and How It Works [x] [employer]: How Can I Make My Lifestyle Healthier [x] Amaya: Taking Care of Your Heart at Home [x] Amaya: Angina Pectoris [x] NTG instructions (pink card) [x] [facility] Patient Resources guide [x] AMAYA Important Note Regarding Medications and not to stop without first checking with doctor. EXTRAS: [] [employer]: Brochure: What is Coronary Bypass Surgery? [x] [employer]: What is a Stent? [] [employer]: How Can I Lower High Cholesterol [] [employer]: How Can I Cook Healthy [] [employer]: How Do I Follow a Healthy Diet [] [employer]: HF and your Ejection Fraction Explained [] [employer]: What is Atrial Fibrillation? [] [employer]: Diet and Nutrition: What about eating out? [] [employer]: Why Should I Limit My Sodium? [] [employer]: Heart Failure Medications [] [employer]: Heart Failure: Reading Food Labels to Look for Sodium [] [employer]: Salt (sodium) can be sneaky [] Amaya: Fluid Retention and Heart Failure [] Amaya: Sodium Facts [x] Amaya: You Can Quit [x] [facility] Road to [place] brochure [] Amaya: Smoking Cessation: There are benefits to quitting smoking [] [facility]-Sexual Activity [x] Amaya: Eating with Your Heart [...] [facility] - [facility] [address] [place] [address] Marlys Mayer MD [address] [place], [place] [id number] Scheduled Referrals Name Type Priority Associated Diagnoses [...] SYSTEM - 11/29/2023 2:36 PM CDT ? [facility] ? [address], [place] [address] ? Test Date: ?2023-11-29 Pat Name: ? LINDA DOSS ?Department: ?? 0 ?Room: ? G005 1 Gender: ? Female ? Histotechnician: ? : ?1975 ? Requested By: DACIA JEANNA Valdez Order Number: [id number] ? Reading MD: ?? Fredi Grady ? Measurements Intervals ?[place] ? Rate: ? 78 ? P: ?56 NV: ? 159 ?QRS: ?55 QRSD: ? 85 ? T: ?10 QT: ? 405 ? QTc: ?461 ? Interpretive Statements SINUS RHYTHM Electronically Signed On 11-29-2023 14:36:49 CDT by Fredi Grady Procedure Note Provider, Historical - 11/29/2023 [facility] [address] , [place] [address] Test Date: 2023-11-29 Pat Name: LINDA DOSS Department: 0 Room: [facility] Gender: Female Histotechnician: : 1975 Requested By: DACIA Valdez Order Number: [id number] Reading MD: Fredi Grady Measurements Intervals [place] Rate: 78 P: 56 NV: 159 QRS: 55 QRSD: 85 T: 10 QT: 405 QTc: 461 Interpretive Statements SINUS RHYTHM Electronically Signed On 11-29-2023 14:36:49 CDT by Fredi Grady Dacia Lewis MD ECG ORDERABLES Performing Organization Address [facility] Co de Phone Number INTERFACE SYSTEM Refer to clinic/hospital department * (ABNORMAL) POC ACTIVATED CLOTTING TIME (11/29/2023 2:13 PM CDT) ACTIVATED CLOTTING TIME POC 256(H) 74 - 137 sec 11/29/2023 2:13 PM CDT [facility] Comment:ACT testing performe d on ISTAT ACT-Kaolin cartridge. Blood 11/29/2023 2:13 PM CDT 11/29/2023 2:19 PM CDT Dacia Lewis MD POINT OF CARE TESTIN G Performing Organization Address [facility] Co de Phone Number [facility] CLIA# [id number] [address] [address] * LEFT HEART CATH, PERCUTANEOUS CORONARY INTERVENTION, LEFT VENTRICULOGRAM (11/29/2023 2:12 PM CDT) 11/29/2023 1:15 PM CDT Narrative [facility] - 11/29/2023 2:41 [...] Continue Brilinta as has been on for ACS/RI since June 2023; continue until June 2024 as planned If she still has some dyspnea symptoms, doesn't feel well after PCI today could change Brilinta to clopidogrel at some point to see if helps ASA 81mg daily indefinitely Statin and other home meds ??to continue Followup with Dr. Mayer in few weeks Dacia Lewis MD [facility] - Heart and Vascular Interventions ([place] [facility]) [facility] [address] [place] [address] Procedure Details CARDIAC CATHETERIZATION CORONARY ANGIOGRAM PCI MID LAD TRACIE x 1 LVgram Access: R radial artery Hemostasis: compression band Indications: increasing HENDRIX/CP, hx CAD hx TRACIE OM and RCA june 2023. Mod mid LAD. RI hx. Palpitations. ?? AUC: Indications: New Onset [...] right radial artery and placed a 6 Lao sheath via the modified Seldinger technique. We [...] EDUARDO flow was 3. Dacia Lewis MD [facility] CATH ORDERABLES [facility] CLIA #[id number] [address] [facility] [place] [address] documented in this encounter Visit Diagnoses Diagnosis Status post insertion of drug-eluting stent into left anterior descending (LAD) artery- Primary Syncope, unspecified syncope type Lightheadedness Dizziness and giddiness S/P right coronary artery (RCA) stent placement HENDRIX (dyspnea on exertion) Other dyspnea and respiratory abnormality Atherosclerosis of mentasta coronary artery of mentasta heart with unstable angina pectoris documented in [...] MD) documented in this encounter Care Teams Liquid Loader Relationship Specialty Start Date End Date Guerrero Middleton PA-C PCP - General Physician Coloring Room Man 02/13/18 documented as of this encounter
--- OUTSIDE RECORDS SUMMARY | 2024-05-03 21:47 | XMS_ITS | Encounter Summary ---
Author Organization [facility] Address [address] [place] [address] Care Team Providers Care Maintenance Man Name Role Phone Guerrero Middleton PA-C [...] week 08/21/2018 How often do you attend [facility] or faith services? Never 08/21/2018 Do you [...] and Vascular - [address] [place] [address] Marlys Mayer MD [address] [place] [address] documented as of this encounter Visit Diagnoses Not on filedocumented in this encounter Care Teams Maintenance Man Relationship Specialty Start Date End Date Guerrero Middleton PA-C PCP - General Physician Loop Tacker 02/13/18 documented as of this encounter
--- OUTSIDE RECORDS SUMMARY | 2024-05-03 21:47 | XMS_ITS | Encounter Summary ---
Author Organization [facility] Address [address] [place] [address] Care Team Providers Care Accounting Instructor Name Role Phone Guerrero Middleton PA-C [...] you attend [facility] or moravian services? Never 08/21/2018 Do you [...] 09/14/2024 3:00 PM CDT Office Visit [facility] Heart and Vascular - [address] [place] [address] Marlys Mayer MD [address] [place] [address] documented as of this encounter Visit Diagnoses Not on filedocumented in this encounter Care Teams Accounting Instructor Relationship Specialty Start Date End Date Guerrero Middleton PA-C PCP - General Physician Certified Surgical Assistant 02/13/18 documented as of this encounter
--- OUTSIDE RECORDS SUMMARY | 2024-05-03 21:47 | XMS_ITS | Encounter Summary ---
Author Organization [facility] Address [address] [place] [address] Care Team Providers Care Mortgage Banker Name Role Phone Guerrero Middleton PA-C Primary Care Provide r Reason for Visit * Reason Onset Date Comments heart cath 11/20/2023 Encounter Details Date Type Department Care Team (Late st Contact Info) Description 11/20/2023 Telephone [facility] Heart and Vascular At [facility] [address] [facility] [place] [address] Marlys Mayer MD [address] [place] [address] [address] [place] [address] heart cath Social History Tobacco [...] [facility] V[facility] - [facility] [address] [place] [address] Marlys Mayer MD [address] [place] [address] documented as of this encounter Visit Diagnoses Not on filedocumented in this encounter Care Teams Mortgage Banker Relationship Specialty Start Date End Date Guerrero Middleton PA-C PCP - General Physician Dental Appliance Repairer 02/13/18 documented as of this encounter
--- OUTSIDE RECORDS SUMMARY | 2024-05-03 21:47 | XMS_ITS | Encounter Summary ---
Author Organization [facility] Address 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 Type 1 diabetes mellitus without complication Palpitations Syncope, unspecified syncope type Procedures MOBILE CARDIAC OUTPATIENT TELEMETRY Marlys Mayer MD [address] [place] [address] Referral ID Status Reason Start Date Expiration Date V isits Requested Visits Authorized [id number] Pending Review 11/18/2023 12/18/2024 1 1 Reason for Visit * Reason Comments Establish Care Encounter Details Date Type Department Care Team (Latest Contact Info) Description 11/18/2023 1:15 PM CDT Office Visit [facility] Heart and Vascular - [address] [place] [address] Marlys Mayer MD [address] [place] [address] Atherosclerosis of [place] chip[place] coronary artery of [place] heart with stable angina pectoris (Primary Dx); [...] often do you attend chur ch or zoroastrian services? Never 08/21/2018 Do you [...] Mayer MD - 11/18/2023 1:30 PM CDT [facility] Heart and Vascular New Patient Visit Casandra Jones, a 47 y.o. female, is a new patient re-establishing care with [facility] Heart and Vascular for the following problems: ICD-10-CM ICD-9-CM 1. Atherosclerosis of [place] coronary artery of [place] heart with stable angina pectoris I25.118 414.01 413.9 2. 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 Type 1 diabetes mellitus without complication E10.9 250.01 4. Palpitations R00.2 785.1 5. Syncope, unspecified syncope type R55 780.2 Last seen in 09/2018 She had an DC in June 2023 while visiting he mother in [place] Do not have complete records but had TRACIE x3 Patient reports that she had another blockage but not related to acute event so now stent was placed One month prior to DC, she started having syncope -about every other week since then Reports she gets worn out early since her DC C/o palpitations Gets worn out easily Current [...] UNITS A DAY PER CORRECTION DOSEWITH MEALS qqwptw-jfccnbil-ikluksz DR (Marcella) 36,000-114,000-180,000 unit capsule Take 2 [...] replacement of left power flow port 05/11/2019 [place] ESOPHAGOGASTRODUODENOSCOPY TRANSORAL DIAGNOSTIC N/A 03/08/2018 ESOPHAGOGASTRODUODENOSCOPY performed by Ceasar Vega MD at [facility] Social History Socioeconomic History Marital status: Spouse name: Not on file Number of children: Not on file Years of education: Not on file Highest education level: Not on file Occupational History Employer: [employer] Tobacco Use Smoking status: Every Day Current [...] and Family: Three times a week Attends Sikhism Services: Never Active Member of Clubs or [...] gait Impression ICD-10-CM ICD-9-CM 1. Atherosclerosis of [place] coronary artery of [place] heart with stable angina pectoris I25.118 414.01 413.9 2. 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 Type 1 diabetes mellitus without complication E10.9 250.01 4. Palpitations R00.2 785.1 5. Syncope, unspecified syncope type R55 780.2 Plan Obtain records from [facility] in [facility] monitor Left heart cath Continue current medications [...] AM CDTAssociated Order(s): MOBILE CARDIAC OUTPATIENT TELEMETRY [place], [place] [address] Decision Support Manager Report CSN: [id number] DATE OF SERVICE: STUDY Mobile cardiac outpatient [...] minute. No arrhythmias were noted. RPF:MEDQ DID: [id number] Dictated by: Miguel Thomas MD, [facility] CC: Marlys Mayer MD * Marlys Mayer MD - 11/18/2023 6:39 PM CDTAssociated Order(s): EKG 12-LEAD Procedure(s): [place] ECG ROUTINE ECG W/LEAST 12 LDS W/I&R Pre-Procedure Diagnose(s): Atherosclerosis of [place] coronary artery of sag[place] heart with stable angina pectoris; Chylomicronemia syndrome; Type 1 diabetes mellitus without complication Sinus tachycardia rate 102 bpm Low voltage QRS in precordial leads documented in this encounter Plan of Treatment Upcoming Encounters Date Type Department Care Team (Late st Contact Info) Description 09/14/2024 3:00 PM CDT Office Visit [facility] Heart and Vascular - [facility] [address] [place] [address] Marlys Mayer MD [address] [place] [address] documented as of this encounter Procedures Procedure Name Priority Date/Time Associated Diagnosis Comments MOBILE CARDIAC OUTPATIENT TELEMETRY Routine 12/22/2023 10:55 AM CDT 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 Type 1 diabetes mellitus without complication Palpitations Syncope, unspecified syncope type [place] ECG ROUTINE ECG W/LEAST 12 LDS W/I&R Routine 11/18/2023 6:39 PM CDT 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 No arrhythmias were noted. RPF:MEDQ DID:[id number] Dictated by: Miguel Thomas MD, [facility] CC: Marlys Mayer MD Marlys Mayer MD CARDIAC SERVICES ORD ERABLES [facility] CLIA# [id number] [address] [place] [address], [address] [place] [address] * [place] ECG ROUTINE ECG W/LEAST 12 LDS W/I&R (11/18/2023 6:39 PM CDT) Narrative [facility] - 11/18/2023 6:39 PM CDT Marlys Mayer MD ? 11/18/2023 10:13 PM Sinus tachycardia rate 102 bpm Low voltage QRS in precordial leads Procedure Note Marlys Mayer MD - 11/18/2023 6:39 PM CDT Sinus tachycardia rate 102 bpm Low voltage QRS in precordial leads Marlys Mayer MD ECG ORDERABLES [facility] CLIA# [id number] [address] [place] [address] documented in this encounter Visit Diagnoses Diagnosis Atherosclerosis of [place] coronary artery of [place] heart with stable angina pectoris- Primary Chylomicronemia syndrome Hyperchylomicronemia Type 1 diabetes mellitus without complication Type I (juvenile type) diabetes mellitus without mention of complication, not stated as uncontrolled Palpitations Syncope, unspecified syncope type documented in this encounter Care Teams Mat Linker Relationship Specialty Start Date End Date Guerrero Middleton PA-C PCP - General Physician Housing Manager 02/13/18 documented as of this encounter
--- OUTSIDE RECORDS SUMMARY | 2024-05-03 21:47 | XMS_ITS | Encounter Summary ---
Author Organization [facility] Address [address] [place] [address] Care Team Providers Care Supervisor Inventory Merchandising Name Role Phone Guerrero Middleton PA-C Primary Care Provide r Encounter Details Date Type Department Care Team (Late st Contact Info) Description 2023 Prep for Surgery [facility] Heart and Vascular At [address] [place] [address] Miguel Lewis MD [address] [place] [address] [address] [place] [address] Syncope, unspecified syncope type (Primary [...] often do you attend chur ch or lutheran services? Never 08/21/2018 Do you [...] [facility] - [facility] [address] [place] [address] Marlys Mayer MD [address] [place] [address] documented as of this encounter Visit Diagnoses Diagnosis Syncope, unspecified syncope type- Primary documented in this encounter Care Teams Supervisor Inventory Merchandising Relationship Specialty Start Date End Date Guerrero Middleton PA-C PCP - General Physician Installer Molding And Trim 02/13/18 documented as of this encounter
--- OUTSIDE RECORDS SUMMARY | 2024-05-03 21:48 | XMS_ITS | Encounter Summary ---
Author Organization [facility] Address [address] [place] [address] Care Team Providers Care Paraprofessional Interpreter Name Role Phone Guerrero Middleton PA-C Primary [...] attend [facility] or roman cath[employer] services? Never 08/21/2018 Do [...] [facility] [address] [place] [id number] [place] [address] Marlys Mayer MD [address] [place] [address] documented as of this encounter Visit Diagnoses Not on filedocumented in this encounter Care Teams Paraprofessional Interpreter Relationship Specialty Start Date End Date Guerrero Middleton PA-C PCP - General Physician Mail Censor 02/13/18 documented as of this encounter
--- OUTSIDE RECORDS SUMMARY | 2024-05-03 21:48 | XMS_ITS | Encounter Summary ---
Author Organization [facility] Address [address] [place] [address] Care Team Providers Care Motor Vehicle Salesperson Name Role Phone Guerrero Middleton PA-C Primary [...] you attend [facility] or jehovah's witness services? Never 08/21/2018 Do [...] [facility] - [address] [place] [id number] [place] [address] Marlys Mayer MD [address] [place] [address] documented as of this encounter Visit Diagnoses Not on filedocumented in this encounter Care Teams Motor Vehicle Salesperson Relationship Specialty Start Date End Date Guerrero Middleton PA-C PCP - General Physician Supervisor Color Making 02/13/18 documented as of this encounter
--- OUTSIDE RECORDS SUMMARY | 2024-05-03 21:48 | XMS_ITS | Encounter Summary ---
Author Organization [facility] Address [address] [place] [address] Care Team Providers Care Production Honing Machine Operator Name Role Phone Guerrero Middleton PA-C Primary Care Provide r Reason for Visit * Reason Comments syncope Pt presents with mul tiple syncopal episodes since 09/02 since d/c from OSH. Pt has hx of chronic pancreatitis d/t genetic condition causing high triglycerides and ME w/stents placed 06/2023. Pt has been having CP, SOB, dizziness and upper gastric pain going on since discharge. Pt has referral to utility tender carding and specialist set up in November but unable to wait d/t the pain and weakness. Pt states the CP/abd pain is similar to previous pancreatitic episodes, but SOB/dizziness, syncope is new, * Auth/Cert (Routine) Specialty Diagnoses / Procedures Referred By Tequila t Referred To Contact Emergency Medicine [facility] Emergency Dept [address] [place] [address] Referral ID Status Reason Start Date Expiration Date Visits Re quested Visits Authorized [id number] 1 1 Encounter Details Date Type Department Care Team (Latest Contact Info) Description 09/19/2023 4:28 AM CDT - 09/26/2023 6:45 PM CDT Hospital Encounter [facility] Medicine [address] [place] [address] Yojana Washington MD [address] [place] [address] Herlinda Mederos DO [address] [facility] [address] [place] [address] Amol Wang MD [address] [place] [address] Parviz Sanabria MD [address] [place] [address] Kortney Ray, [address] [facility] [address] [place] [address] Acute on chronic pancreatitis Discharge [...] from the original note were not included. [facility] Adult Hospitalist Discharge Summary Casandra Doss 47 y.o. female 1975 CSN: [id number] Date of Admission: 09/19/2023 Date of Discharge: [...] d/t genetic condition causing high triglycerides and ME w/stents placed 06/2023. Pt has beenhaving CP, SOB, dizziness and upper gastric pain going on since discharge. Pt has referral to utility tender carding and specialist set up in November but unable to wait d/t the pain and weakness. Pt states the CP/abd pain is similar to previous pancreatitic episodes, but SOB/dizziness, syncope is new, Hospital Course: Casandra Doss is a 47 y.o. female with PMH hypertriglyceridemia who presented to [facility] 09/19/2023 for chief complaint of syncope. [...] was recommended to follow up with her child therapist for further adjustments as PO intake continues [...] Quantity: 180 Capsule Refills: 0 Generic drug: skhhzv-kelhamxy-jeabfvp metoprolol succinate 25 mg Extended Release 24 [...] in the morning. Signed by: Dr. Alma aRy Refills: 0 Generic drug: insulin degludec * [...] Your Medications These medications were sent to [facility]/pharmacy #[id number] - [place], [place] - [address] [facility] [address] [facility] [address] Creon 36,000-114,000- 180,000 unit capsule levothyroxine 100 [...] type, unspecified whether angina present, unspecified whether [place] or transplanted heart; Chylomicronemia syndrome. TECHNIQUE: Computed [...] in the abdomen or pelvis. DICTATION LOCATION: [address] TTE 09/20/23 STUDY CONCLUSIONS: SUMMARY: - [...] Ray DO and may be reached at [phone] for any questions or concerns until you [...] people smoke in your home. Please call [phone], our pulmonary rehabilitation department, to learn more [...] Work/School Release Casandra Doss was admitted to [facility] on 09/19/2023 and discharged on 09/25/2023 fora medical condition. She may return to work in 3 Days with no restrictions. Please feel free to call me with any questions. Kortney Ray DO [facility] Hospitalist documented in this encounter Medications at Time of Discharge Medication Sig Dispensed Refills Start Date End Date Blood-Glucose Sensor (Dexcom G7 Sensor) Device 05/13/2023 ondansetron (ZOFRAN ODT) 4 mg Tablet, Rapid Dissolve Take 1 Tablet (4 mg) by mouth every 6 hours as needed for Nausea/Emesis. 30 Tablet 09/26/20[address] wazclk-nxpaqqtq-ruswe se DR (Creon) 36,000-114,000-180,00 0 unit capsule [...] Ray DO - 09/25/2023 9:04 AM CDT [facility] Adult Hospitalist Progress Note Admit Date: 09/19/2023 [...] carotid dopplers negative. Chronic/Stable/Resolved Problems: MDD/ISMAEL- continue HISTOPATHOLOGIST Celexa GERD- continue HISTOPATHOLOGIST PPI IDDM2- HISTOPATHOLOGIST regimen includes metformin 1gm BID, glargine 35u [...] Kortney Ray DO Please contact me via GrabInbox Secure Chat from 7am-7pm After hours please place E-ticket to [facility] * Vicki Pride RN - 09/25/2023 4:22 [...] were not included. CLINICAL DIETITIAN PROGRESS NOTE [facility] Follow Up Nutrition Assessment Diet advance to Low Fat, pt ate cereal and banana at breakfast, lunch foods were too heavy and pt did not eat. Will send Khmer Yogurt with dinner meals. Discussed ordering breakfast foods at lunch and b2b sales professional foods at dinner. Assessment: Recent Labs 09/22/2331 [...] GI function I:Nutrition Intervention: DIET FAT CONTROL Khmer yogurt at dinner, if pt tolerates she will order it at other meals. Goal: Consume 75% of meals/ supplements M/E: 1. Continue to monitor: Anthropometrics, Digestive, Skin, and Biochemical data 2. Follow up every 4-7 days and as needed. Time spent: [address] LD [phone] Available by secure chat * Flor Kortney Pena, - 09/24/2023 10:14 AM CDT [facility] Adult Hospitalist Progress Note Admit Date: 09/19/2023 [...] carotid dopplers negative. Chronic/Stable/Resolved Problems: MDD/ISMAEL- continue HISTOPATHOLOGIST Celexa GERD- continue HISTOPATHOLOGIST PPI IDDM2- HISTOPATHOLOGIST regimen includes metformin 1gm BID, glargine 35u [...] Kortney Ray DO Please contact me via GrabInbox Secure Chat from 7am-7pm After hours please place [facility] * Gloria Sherman GN - 09/24/2023 7:45 AM CDT Images from the original note were not included. [facility] Adult Therapeutic Orders Protocol [facility] Approved by: [facility] - Medical Executive Committee Approval Date: 04/18/2023 ORDERS ARE ENTERED ???PER PROTOCOL?? Enter the protocol in the patient's electronic health record using smartphrase:.nursingtheraputicordersprotocol For adult inpatients with complaints of minor discomfort Nursing Orders: ONM075 Ice Pack/Cold Therapy 20 minutes every 2 hours to affected area. QTQ611 Warm Compress/Heat to affected area 20 minutes [...] Stop insulin gtt. DM-2 with hyperglycemia and alf insulin use-cont Lantus 15 and premeal 5 plus correction. Chest/upper abdomen discomfort-troponins not consistent with ACS. Echo with preserved wall motion and normal global systolic fn Recurrent syncope-continue lower dose metoprolol. Echo reassuring. Carotid u/s negative. Syncope may relate to relative volume depletion with her GI issues and metoprolol. Follow telemetry CAD of [place] heart [place] artery without angina-cont asa, statin, bb and [...] completed in 2-3 days. Transfer out of [facility] Adult Hospitalist Progress Note Admit Date: [...] lab and test results. Parviz Sanabria MD [facility] Hospitalist P: Please check the [facility] Trackboard and then send a secure chat from 7a-7p. Send a virtual ticket or call the hospitalist alteration workroom supervisor pager at [phone] from 7p-7a O: [phone] * Alize Alamo RN - 09/22/2023 2:40 PM CDT Pt home medication acwaty-qjqlontz-rklmsrv DR MAGUIRE) brought in and verified by [...] Stop insulin gtt. DM-2 with hyperglycemia and alf insulin use-start Lantus 15 and premeal 5 plus correction. Chest/upper abdomen discomfort-troponins not consistent with ACS. Echo with preserved wall motion and normal global systolic fn Recurrent syncope-continue lower dose metoprolol. Echo reassuring. Check carotid u/s. Follow telemetry CAD of [place] heart [place] artery without angina-cont asa, statin, bb and [...] anticipate will be completed in 1-2 days. [facility] Adult Hospitalist Progress Note Admit Date: 09/19/2023 [...] lab and test results. Parviz Sanabria MD [facility] Hospitalist P: Please check the [employer] Trackboard and then send a secure chat from 7a-7p. Send a virtual ticket or call the hospitalist alteration workroom supervisor pager at [phone] from 7p-7a O: [phone] * Parviz Sanabria MD - 09/21/2023 2:52 PM CDT Assessment/Plan of Actively Managed Problems Epigastric pain with hx of chronic pancreatitis-cont pain control. Cont insulin gtt. TG's are decreasing. 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 Cont statin and fenofibrate. Continue insulin gtt. TG's coming down DM-2 with hyperglycemia and alf insulin use-insulin gtt with d5 1/2 ns. Chest/upper abdomen discomfort-troponins not consistent with ACS. Echo with preserved wall motion and normal global systolic fn Recurrent syncope-continue lower dose metoprolol. Echo reassuring. Check carotid u/s. Follow telemetry CAD of [place] heart [place] artery without angina-cont asa, statin, bb and [...] anticipate will be completed in 1-2 days. [facility] Adult Hospitalist Progress Note Admit Date: 09/19/2023 [...] lab and test results. Parviz Sanabria MD [facility] Hospitalist P: Please check the [facility] Trackboard and then send a secure chat from 7a-7p. Send a virtual ticket or call the hospitalist alteration workroom supervisor pager at [phone] from 7p-7a O: [phone] * Ligia Higuera, RD - 09/20/2023 10:45 PM CDT Images from the original note were not included. CLINICAL DIETITIAN PROGRESS NOTE [facility] Nutrition Risk Screen: hx malnutrition Epigastric pain with hx of chronic pancreatitis-cont pain control, DM, syncope Food and Nutrition Related History: NPO at this time. Pt said she wasn't eating much recently. She said she can't have anything with artificial sweeteners, they give her a migraine, so she can't do the Ensure Max. She does like luxembourgish yogurt. No weight loss noted. Assessment: Past [...] (09/18/232135) Body mass index is 31.62 kg/m??. [place] body weight: 57 kg (125 lb 10.6 [...] minutes Ligia ANDRADE Can be reached via GrabInbox secure chat * Alize Alamo RN - [...] 80s. Pulses 2/2. Lovenox. afebrile GI: BM HISTOPATHOLOGIST Endocrine: Q1 blood sugar check for insulin [...] and fenofibrate DM-2 with hyperglycemia and buttermaker helper insulin use-insulin gtt with d5 1/2 ns. Chest/upper abdomen discomfort-troponins not consistent with ACS. Echo with preserved wall motion and normal global systolic fn Recurrent syncope-continue lower dose metoprolol. Echo reassuring. Check carotid u/s. Follow telemetry CAD of [place] heart [place] artery without angina-cont asa, statin, bb and brilinta Nutrition: Current Diet and/or Nutritional Supplementation ordered: DIET NPO Sips w/Meds, DVT Prophylaxis - Enoxaparin Pettit catheter:absent Lines: Peripheral IV PT/OT:no Current Code Status -Full Code Plan discussed with patient, questions answered. Current Planned Disposition - home which I anticipate will be completed in 1-2 days. [facility] Adult Hospitalist Progress Note Admit Date: 09/19/2023 [...] lab and test results. Parviz Sanabria MD [facility] Hospitalist P: Please check the [employer] Trackboard and then send a secure chat from 7a-7p. Send a virtual ticket or call the hospitalist alteration workroom supervisor pager at [phone] from 7p-7a O: [phone] * Jose Charles, [facility] - 09/20/2023 11:01 AM CDT Images from the original note were not included. [facility] DCS Definity Protocol [facility] Approved by: [facility] - Medical Executive Committee Approval Date: 10/11/2022 [...] of DEFINITY?? on ECMO patients. The ECMO concrete boom operator must bepresent when the DEFINITY ?? is administered and while images are being obtained. The ECMO operatorcan be reached at [address] [place] [address] ([id number] in melvin) If patient meets/states ???yes to any exclusion criteria, STOP THE PROCEDURE, and annotate exam accordingly Patient meets at least one of these inclusion criteria Credentialed provider request Patient is technically difficult to image ([place] Society of Echocardiography guidelines recommend use when [...] ordered by a credentialed provider, RN or care connector Educate patient or responsible green party on DEFINITY?? indications and potential side effects and review procedure goals with the patient and/or caregiver Verify patient does not have any allergy or contraindications to receive DEFINITY?? or octaflouropropane and confirm Allergies by ???Marking as Reviewed?? in patient's chart Verify peripheral or central line IV access. 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 Skin: Intact Roya Boyer RN, BSN [facility] [phone] documented in this encounter H&P Notes * Herlinda Mederos DO - 09/19/2023 7:43 AM CDT [facility] Adult Hospitalist H&P Patient Name: Casandra Doss [...] month ago) # DM2: A1c 9.7%; holding HISTOPATHOLOGIST metformin; HISTOPATHOLOGIST on tresiba 34u qd and aspart 5u [...] when changing position/standing vs other; wlil decrease HISTOPATHOLOGIST metoprolol from 25->12.5mg qd; f/u orthostatic VS; f/u TTE; monitor on telemetry # CAD s/p stents 06/2023: unable to view OSH records although she did bring a CD in with her; continue HISTOPATHOLOGIST ASA, atorvastatin, brillinta, metoprolol suc (changed from 25->12.5mg qd while monitoringBP); per phone call to pt's pharmacy last brillinta was picked up 07/15 for 30 d supply but pt reports that she has not missed a dose as she received samples and was also intermittently hospitalized; has plans to follow up outpatient with cardiology # GERD: continue HISTOPATHOLOGIST PPI # Hypothyroidism: continue HISTOPATHOLOGIST levothyroxine DVT Prophylaxis Enoxaparin Code status: full [...] of left power flow port 05/11/2019 CO ESOPHAGOGASTRODUODENOSCOPY TRANSORAL DIAGNOSTIC N/A 03/08/2018 ESOPHAGOGASTRODUODENOSCOPY performed by Ceasar Vega MD at [facility] Family History Problem [...] Sig: TAKE 1 TABLET BY MOUTH EVERY FIRE CLAIMS ADJUSTER fenofibrate (LOFIBRA) 160 mg Tablet No No [...] record, Referring and communication with other health pet care assistant (not separately reported), Independently interpreting results and communicating results to the patient/family/caregiver (not separately reported), Care coordination (not separately reported), and Excluding time spent performing separately billed procedures and/or services. Herlinda Mederos DO Please contact me via GrabInbox Secure Chat from 7am-7pm After hours please place E-ticket to [facility] documented in this encounter ED Notes * Ela Paul RN - 09/19/2023 8:52 AM CDT CLAU Pryor made aware of pt transport at this time. Vitals obtained and charted. * Marisol Hopkins RN - 09/19/2023 7:00 AM CDT This RN obtained VS, pt c/o increased abdominal pain at this time. This RN placed [employer] Virtual ticket for medication request. Pt is resting calmly on stretcher, airway patent, respirations non labored, NS infusing without difficulty. Pt informed of plan to await medication order, denies further needs. * Marisol Hopkins RN - 09/19/2023 4:57 AM CDT Chief Complaint Patient presents with syncope Pt presents with multiple syncopal episodes since 09/02 since d/c from OSH. Pt has hx of chronic pancreatitis d/t genetic condition causing high triglycerides and ME w/stents placed 06/2023. Pt has beenhaving CP, SOB, dizziness and upper gastric pain going on since discharge. Pt has referral to utility tender carding and specialist set up in November but [...] that pain was unrelieved last night after [id number] Hydrocodone. Patient placed on continuous pulse oximetry, [...] reporting that she had been admitted at [facility] in [place], [place], on 07/10 after presenting there with [...] active disease. DICTATION LOCATION: Location 1 - [facility] EKG: Rate 97. Sinus rhythm. Normal [...] 19, 2023 0542 Spoke with ISMAEL Cavanaugh [facility], who agrees with plan for admission under [...] acute disease. Non-ED notes reviewed: MRCP at [facility] 06/05/23. Additional information obtained from independent historian, [...] lesion type, unspecified whetherangina present, unspecified whether [place] or transplanted heart [E78.3] Chylomicronemia syndrome DISPOSITION, [...] Management. Chart review completed. Patient transferred from [facility]. Medical workup in progress. Care Management will continue to follow and assist with discharge needs as they arise. Christina Maldonado RN [id number] Problem: Discharge Planning Goal: Identify discharge needs [...] needs anticipated. Zahraa Borrero RN Care Manager [phone] cell [phone] office * Care Plan - Maurice Whaley [...] Activity intolerance, Potential/Actual Musculoskeletal Interventions: Mobility promoted [place] in ADL???s promoted Slow, progressive position changes [...] Lovenox changed to heparin. Afebrile GI: BM HISTOPATHOLOGIST Endocrine: Q1 blood sugar check for insulin [...] [facility] [address] [place] [address] Marlys Mayer MD [address] [place] [address] documented as of this encounter Procedures Procedure [...] - 99 mg/dL 09/26/2023 2:04 PM CD[address] [facility] SPECIMEN SOURCE, GLUCOSE POC Whole Blood 09/26/2023 2:[address] PM [address] [facility] COMMENT, GLU POC Notified RN/MD 09/26/2023 2:[address] PM [address] [facility] Blood, whole 09/26/2023 2:04 PM CDT 09/26/2023 2:12 PM CDT Kortney Ray DO POINT OF CARE TESTIN G [facility] Viewpoints [facility]# [id number] [address] [place] [address] * (ABNORMAL) POC GLUCOSE (09/26/2023 8:59 AM CDT) GLUCOSE POC 185(H) 74 - 99 mg/dL 09/26/2023 8:59 AM CDT [facility] SPECIMEN SOURCE, GLUCOSE POC Whole Blood 09/26/2023 8:59 AM CDT [facility] COMMENT, GLU POC Notified RN/MD 09/26/2023 8:59 AM CDT [facility] Blood, whole 09/26/2023 8:59 AM CDT 09/26/2023 9:15 AM CDT Kortney Ray DO POINT OF CARE TESTIN Maggie Performing Organization Address City/[facility]/ZIP Co de Phone Number [facility] CLIA# [id number] [address] [place] [address] * (ABNORMAL) POC GLUCOSE (09/25/2023 11:03 PM CDT) GLUCOSE POC 204(H) 74 - 99 mg/dL 09/25/2023 11:03 PM CDT [facility] LABORATORY SERVICES [facility] SPECIMEN SOURCE, GLUCOSE POC Whole Blood 09/25/2023 11:03 PM CD[address] [facility] LABOR[facility]ORY SERVICES [facility] Blood, whole 09/25/2023 11:0 3 PM CDT 09/25/2023 11:18 PM CDT Kortney Ray DO POINT OF CARE TESTIN Maggie Performing Organization Address [facility]/ZIP Co de Phone Number [facility] CLIA# [id number] [address] [place] [address] * (ABNORMAL) POC GLUCOSE (09/25/2023 5:48 PM CDT) GLUCOSE POC 194(H) 74 - 99 mg/dL 09/25/2023 5:48 PM [address] [facility] LABORATORY SERVICES - [facility] SPECIMEN SOURCE, GLUCOSE POC Whole Blood 09/25/2023 5:48 PM [address] [facility] SERVICES [facility] COMMENT, GLU POC Notified RN/MD 09/25/2023 5:[address] [facility] LABOR[facility]ORY SERVICES [facility] Blood, whole 09/25/2023 5:48 PM CDT 09/25/2023 5:56 PM CDT Kortney Ray DO POINT OF CARE TESTIN Maggie [facility] LAB[facility]ORY [facility] CLIA# [id number] [address] [place] [address] * (ABNORMAL) POC GLUCOSE (09/25/2023 1:16 PM CDT) GLUCOSE POC 243(H) 74 - 99 mg/dL 09/25/2023 1:[address] [facility] LABORATORY SERVICES - [facility] SPECIMEN SOURCE, GLUCOSE POC Whole Blood 09/25/2023 1:[address] [facility] LABORATORY SERVICES - [facility] Blood, whole 09/25/2023 1:16 PM CDT 09/25/2023 1:26 PM CDT Kortney Ray DO POINT OF CARE TESTIN G Performing Organization Address City/[facility]/ZIP Co de Phone Number [facility] CLIA# [id number] [address] [place] [address] * (ABNORMAL) POC GLUCOSE (09/25/2023 9:29 AM CDT) GLUCOSE POC 155(H) 74 - 99 mg/dL 09/25/2023 9:29 AM CDT [facility] LABORATORY SERVICES - [facility] SPECIMEN SOURCE, GLUCOSE POC Whole Blood 09/25/2023 9:29 AM CDT [facility] LABORATORY SERVICES - [facility] COMMENT, GLU POC Notified RN/MD 09/25/2023 9:29 AM CDT [facility] LABORATORY SERVICES [facility] Blood, whole 09/25/2023 9:29 AM CDT 09/25/2023 9:37 AM CDT Kortney Ray DO POINT OF CARE TESTIN G Performing Organization Address [facility]/ZIP Co de Phone Number [facility] Viewpoints [facility] CLIA# [id number] [address] [place] [address] * (ABNORMAL) CBC WITHOUT DIFFERENTIAL (09/25/2023 8:09 AM CDT) WBC 6.0 4.0 - 9.8 K/uL 09/25/2023 9:01 AM CDT [facility] LAB[facility]ORY SERVICES - [facility] RBC 3.96 3.90 - 4.90 M/uL 09/25/2023 9:01 AM [facility] SERVICES - . [facility] HEMOGLOBIN 11.4(L) 11.8 - 14.8 g/dL 09/25/2023 9:01 AM [facility] SERVICES - [facility] HEMATOCRIT 34.5(L) 35.5 - 44.0 % 09/25/2023 9:01 AM [facility] - [facility] MCV 87.1 82.0 - 99.0 fL 09/25/2023 9:01 AM [facility] - [facility] MCH 28.8 27.2 - 32.6 pg 09/25/2023 9:01 AM [facility] - [facility] MCHC 33.0 31.5 - 35.5 g/dL 09/25/2023 9:01 AM [facility] - . [facility] PLATELETS 194 140 - 350 K/uL 09/25/2023 9:01 AM NEW [facility] . [facility] MPV 9.5 9.3 - 12.4 fL 09/25/2023 9:01 AM [facility] RDW 14.6(H) 11.5 - 14.5 % 09/25/2023 9:01 AM [facility] RDW-STDEV 46.5 37.1 - 48.7 fL 09/25/2023 9:01 AM [facility] Blood Venipuncture / Unknown 09/25/2023 8:09 AM CDT 09/25/2023 8:38 AM CDT Kortney Ray DO HEMATOLOGY ORDERABLE S [facility] CLIA# [id number] [address] [facility] [place] [address] * (ABNORMAL) COMPREHENSIVE METABOLIC PANEL (09/25/2023 8:08 AM CDT) SODIUM 140 136 - 145 mmol/L 09/25/2023 9:24 AM [facility] LABORATORY SERVICES [facility] POTASSIUM 3.8 3.5 - 5.0 mmol/L 09/25/2023 9:24 AM [facility]AT[facility] CHLORIDE 104 98 - 107 mmol/L 09/25/2023 9:24 AM [facility] LABORATORY [facility] CO2 26 22 - 29 mmol/L 09/25/2023 9:24 AM [facility] CALCIUM 9.2 8.6 - 10.2 mg/dL 09/25/2023 9:24 AM [facility] BUN 7 6 - 20 mg/dL 09/25/2023 9:24 AM [facility] CREATININE 0.63 0.51 - 0.95 mg/dL 09/25/2023 9:24 AM [facility] GLUCOSE 144(H) 74 - 99 mg/dL 09/25/2023 9:24 AM [facility] TOTAL PROTEIN 5.9(L) 6.7 - 8.6 g/dL 09/25/2023 9:24 AM [facility] ALBUMIN 3.7 3.5 - 5.2 g/dL 09/25/2023 9:24 AM [facility] BILIRUBIN TOTAL 0.5 0.3 - 1.2 mg/dL 09/25/2023 9:24 AM [facility] LABORATORY [facility] ALKALINE PHOSPHATASE 71 35 - 104 U/L 09/25/2023 9:24 AM [facility] [facility] AST 41(H) <33 U/L 09/25/2023 9:24 AM [facility] [facility] ALT 52(H) <34 U/L 09/25/2023 9:24 AM [facility] GFR >60 >=60 mL/min/1.7 3 sq meter 09/25/2023 9:24 AM [facility] SERVICES - . [facility] Comment:eGFR calculated with 2020 CKD-EPI equation. Vegetarian diet, extremely high or low muscle mass, and may affect results. Cystatin C with Glomerular Filtration Rate is a suitable alternative for these patients. ANION GAP 10 8 - 16 mmol/L 09/25/2023 9:24 AM CDT [facility] LABORATORY SERVICES - [facility] Blood Venipuncture / Unknown 09/25/2023 8:08 AM CDT 09/25/2023 8:37 AM CDT [facility] LABORATORY SERVICES [facility] - 09/25/2023 9:24 AM CDT Samples containing indocyanine green cause interferences on Total and/or Direct Bilirubin and must not be measured. Kortney Ray DO CHEMISTRY ORDERABLES Performing Organization Address [facility]/ZIP Co de Phone Number [facility] Viewpoints [facility] [id number] [address] [place] [address] * (ABNORMAL) POC GLUCOSE (09/24/2023 8:17 PM CDT) GLUCOSE POC 178(H) 74 - 99 mg/dL 09/24/2023 8:17 PM CD[address] [facility] LABORATORY [facility] SPECIMEN SOURCE, GLUCOSE POC Whole Blood 09/24/2023 8:17 PM [address] [facility] LABORATORY [facility] Blood, whole 09/24/2023 8:17 PM CDT 09/24/2023 8:25 PM CDT Kortney Ray DO POINT OF CARE TESTIN G [facility] Viewpoints [facility]# [id number] [address] [place] [address] * (ABNORMAL) POC GLUCOSE (09/24/2023 5:15 PM CDT) GLUCOSE POC 110(H) 74 - 99 mg/dL 09/24/2023 5:15 PM [address] [facility] LABORATORY [facility] SPECIMEN SOURCE, GLUCOSE POC Whole Blood 09/24/2023 5:15 PM [address] [facility] LABORATORY [facility] Blood, whole 09/24/2023 5:15 PM CDT 09/24/2023 5:29 PM CDT Kortney Ray DO POINT OF CARE TESTIN Maggie [facility] LABORATORY [facility] CLIA# [id number] [address] [place] [address] * (ABNORMAL) POC GLUCOSE (09/24/2023 11:49 AM CDT) GLUCOSE POC 205(H) 74 - 99 mg/dL 09/24/2023 11:49 AM CDT [facility] LABORATORY SERVICES [facility] SPECIMEN SOURCE, GLUCOSE POC Whole Blood 09/24/2023 11:49 AM CDT [facility] LABORATORY SERVICES [facility] Blood, whole 09/24/2023 11:4 9 AM CDT 09/24/2023 11:59 AM CDT Kortney Ray DO POINT OF CARE TESTIN Maggie Performing Organization Address [facility]/ZIP Co de Phone Number [facility] LABORATORY [facility] CLIA# [id number] [address] [place] [address] * (ABNORMAL) POC GLUCOSE (09/24/2023 8:53 AM CDT) GLUCOSE POC 117(H) 74 - 99 mg/dL 09/24/2023 8:53 AM CDT [facility] LABORATORY SERVICES [facility] SPECIMEN SOURCE, GLUCOSE POC Whole Blood 09/24/2023 8:53 AM CDT [facility] LABORATORY SERVICES [facility] Blood, whole 09/24/2023 8:53 AM CDT 09/24/2023 9:14 AM CDT Kortney Ray DO POINT OF CARE TESTIN Maggie [facility] LABORATORY [facility] CLIA# [id number] [address] [place] [address] * (ABNORMAL) POC GLUCOSE (09/23/2023 11:42 PM CDT) GLUCOSE POC 155(H) 74 - 99 mg/dL 09/23/2023 11:42 PM CDT [facility] LABORATORY SERVICES - [facility] SPECIMEN SOURCE, GLUCOSE POC Whole Blood 09/23/2023 11:42 PM [address] [facility] LABORATORY SERVICES - [facility] Blood, whole 09/23/2023 11:4 2 PM CDT 09/23/2023 11:51 PM CDT Parviz Sanabria MD POINT OF CARE T ESTING Performing Organization Address [facility]/State/ZIP Co de Phone Number [facility] Viewpoints [facility] CLIA# [id number] [address] [place] [address] * (ABNORMAL) POC GLUCOSE (09/23/2023 7:38 PM CDT) GLUCOSE POC 231(H) 74 - 99 mg/dL 09/23/2023 7:38 PM CDT [facility] LABORATORY SERVICES - [facility] SPECIMEN SOURCE, GLUCOSE POC Whole Blood 09/23/2023 7:38 PM CDT [facility] LABORATORY SERVICES - [facility] Blood, whole 09/23/2023 7:38 PM CDT 09/23/2023 7:48 PM CDT Parviz Sanabria MD POINT OF CARE T ESTING [facility] Viewpoints [facility] CLIA# [id number] [address] [place] [address] * (ABNORMAL) POC GLUCOSE (09/23/2023 1:35 PM CDT) GLUCOSE POC 129(H) 74 - 99 mg/dL 09/23/2023 1:35 PM [address] [facility] LABORATORY SERVICES - [facility] SPECIMEN SOURCE, GLUCOSE POC Whole Blood 09/23/2023 1:35 PM CDT [facility] COMMENT, GLU POC Notified RN/MD 09/23/2023 1:35 PM CDT [facility] Blood, whole 09/23/2023 1:35 PM CDT 09/23/2023 1:43 PM CDT Parviz Sanabria MD POINT OF CARE [facility] Organization Address City/State/ZIP Co de Phone Number [facility] CLIA# [id number] [address] [place] [address] * US CAROTID DOPPLER (09/23/2023 9:43 AM CDT) Anatomical Region Laterality Modality Neck Ultrasound 09/23/2023 7:44 AM CDT Narrative 09/24/2023 6:21 AM CDT [employer] [facility] [employer] [facility] [address] [place] [address] [email or web address] [email or web address] Exam Carotid Duplex Patient: ? Casandra Doss MRN: ? [id number] Study ID: ?[id number] Gender: ?F : ? 1975 Age: ? 47 Race: ?CAU Height ? 165.1cm Study Date: ?09/23/2023 Weight: ?86.2kg Access. #: ? [id number] Account #: ? [id number] *Referring Physician:Parviz Arambula John Jacob *Ordering Physician:* [...] +-----+-----+ Prepared and Electronically Authenticated Darío Augustine [id number] Procedure Note Darío Augustine MD - 09/24/2023 [place] [address] [email or web address] Exam Carotid Duplex Patient: Casandra Doss Study ID: [id number] Gender: F : 1975 Age: 47 Race: CAU Height 165.1cm Study Date: 09/23/2023 Weight: 86.2kg Access. #: [id number] *Referring Physician:Parviz Arambula John Jacob *Ordering Physician:* [...] +-----+-----+ Prepared and Electronically Authenticated Darío Augustine [id number] Parivz Sanabria MD ORDERABLES * (ABNORMAL) POC GLUCOSE (09/23/2023 9:22 AM CDT) GLUCOSE POC 128(H) 74 - 99 mg/dL 09/23/2023 9:22 AM CDT [facility] Viewpoints [facility] SPECIMEN SOURCE, GLUCOSE POC Whole Blood 09/23/2023 9:22 AM CDT [facility] COMMENT, GLU POC Notified RN/MD 09/23/2023 9:22 AM CDT [facility] Viewpoints [facility] Blood, whole 09/23/2023 9:22 AM CDT 09/23/2023 9:30 AM CDT Parviz Sanabria MD POINT OF CARE T [place] [facility]# [id number] [address] [facility] [place] [address] * (ABNORMAL) TRIGLYCERIDE (09/22/2023 11:44 PM CDT) Pathologist [facility] TRIGLYCERIDE 859(H) <150 mg/dL 09/23/2023 12:18 AM CDT [facility] Viewpoints [facility] Blood Venipuncture / Unknown 09/22/2023 11:44 PM CDT 09/22/2023 11:48 PM CDT Narrative [facility] Viewpoints [facility] - 09/23/2023 12:18 AM CDT TRIGLYCERIDES ? mg/dL Normal ?< 150 Borderline High ?150 - 199 High ? 200 - 499 Very High ? >= 500 Based on AHA/NCEP Guidelines. Herlinda Mederos DO CHEMISTRY ORDERABLES Performing Organization Address [facility] Co de Phone Number [facility]# [id number] [address] [place] [address] * (ABNORMAL) POC GLUCOSE (09/22/2023 10:23 PM CDT) GLUCOSE POC 173(H) 74 - 99 mg/dL 09/22/2023 10:23 PM [address] [facility] LABORATORY SERVICES [facility] SPECIMEN SOURCE, GLUCOSE POC Whole Blood 09/22/2023 10:[address] PM [address] [facility] LABORATORY SERVICES [facility] COMMENT, GLU POC Notified RN/MD 09/22/2023 10:[address] PM [address] [facility] LABORATORY SERVICES [facility] Blood, whole 09/22/2023 10:2 3 PM CDT 09/22/2023 10:32 PM CDT Parviz Sanabria MD POINT OF CARE T ESTING Performing Organization Address [facility] Co de Phone Number [facility]# [id number] [place] [address] * (ABNORMAL) POC GLUCOSE (09/22/2023 4:05 PM CDT) GLUCOSE POC 128(H) 74 - 99 mg/dL 09/22/2023 4:05 PM CD[address] [facility] LABORATORY SERVICES [facility] SPECIMEN SOURCE, GLUCOSE POC Whole Blood 09/22/2023 4:05 PM [address] [facility] LABORATORY SERVICES [facility] COMMENT, GLU POC Notified RN/MD 09/22/2023 4:05 PM [address] [facility] LABORATORY SERVICES [facility] Blood, whole 09/22/2023 4:05 PM CDT 09/22/2023 4:13 PM CDT Parviz Sanabria MD POINT OF CARE T EST[place] [facility] Viewpoints [facility] CLIA# [id number] [address] [place] [address] * (ABNORMAL) POC GLUCOSE (09/22/2023 12:23 PM CDT) GLUCOSE POC 180(H) 74 - 99 mg/dL 09/22/2023 12:23 PM [address] [facility] LABORATORY SERVICES [facility] SPECIMEN SOURCE, GLUCOSE POC Whole Blood 09/22/2023 12:23 PM [address] [facility] LABORATORY SERVICES [facility] COMMENT, GLU POC Notified RN/MD 09/22/2023 12:[address] [facility] LABORATORY SERVICES [facility] Blood, whole 09/22/2023 12:2 3 PM CDT 09/22/2023 12:31 PM CDT Parviz Sanabria MD [facility] Performing Organization Address [facility]/ZIP Co de Phone Number [facility] Viewpoints [facility]# [id number] [address] [place] [address] * (ABNORMAL) POC GLUCOSE (09/22/2023 11:04 AM CDT) GLUCOSE POC 136(H) 74 - 99 mg/dL 09/22/2023 11:04 AM CDT [facility] LABORATORY SERVICES [facility] SPECIMEN SOURCE, GLUCOSE POC Whole Blood 09/22/2023 11:04 AM CDT [facility] LABORATORY SERVICES [facility] COMMENT, GLU POC Notified RN/ 09/22/2023 11:04 AM CDT [facility] LABORATORY SERVICES [facility] Blood, whole 09/22/2023 11:0 4 AM CDT 09/22/2023 11:12 AM CDT Parviz Sanabria MD POINT OF CARE T [place] [facility] LABORATORY [facility] CLIA# [id number] [address] [place] [address] * (ABNORMAL) POC GLUCOSE (09/22/2023 10:09 AM CDT) Pathologist [facility] GLUCOSE POC 158(H) 74 - 99 mg/dL 09/22/2023 10:09 AM CDT [facility] LABORATORY [facility] SPECIMEN SOURCE, GLUCOSE POC Whole Blood 09/22/2023 10:09 AM CDT [facility] LABORATORY [facility] COMMENT, GLU POC Notified RN/MD 09/22/2023 10:09 AM CDT [facility] Viewpoints [facility] Blood, whole 09/22/2023 10:0 9 AM CDT 09/22/2023 10:18 AM CDT Parviz Sanabria MD POINT OF CARE T ESTING Performing Organization Address [facility]/ZIP Co de Phone Number [facility] Viewpoints [facility]# [id number] [address] [place] [address] * (ABNORMAL) TRIGLYCERIDE (09/22/2023 9:31 AM CDT) [facility] TRIGLYCERIDE 743(H) <150 mg/dL 09/22/2023 10:00 AM CDT [facility] Viewpoints [facility] Blood Venipuncture / Unknown 09/22/2023 9:31 AM CDT 09/22/2023 9:35 AM CDT Narrative [facility] Viewpoints [facility] - 09/22/2023 10:00 AM CDT TRIGLYCERIDES ? mg/dL Normal ?< 150 Borderline High ?150 - 199 High ? 200 - 499 Very High ? >= 500 Based on AHA/NCEP Guidelines. Herlinda Mederos DO CHEMISTRY ORDERABLES Performing Organization Address [facility]/ZIP Co de Phone Number [facility] Viewpoints [facility]# [id number] [address] [place] [address] * (ABNORMAL) POC GLUCOSE (09/22/2023 9:15 AM CDT) GLUCOSE POC 150(H) 74 - 99 mg/dL 09/22/2023 9:15 AM CDT [facility] LABORATORY [facility] SPECIMEN SOURCE, GLUCOSE POC Whole Blood 09/22/2023 9:15 AM CDT [facility] LABORATORY SERVICES [facility] COMMENT, GLU POC Notified RN/MD 09/22/2023 9:15 AM CDT [facility] LABORATORY SERVICES [facility] Blood, whole 09/22/2023 9:15 AM CDT 09/22/2023 9:22 AM CDT Parviz Sanabria MD POINT CARE [facility] Performing Organization Address City/[facility]/ZIP Co de Phone Number [facility] CLIA# [id number] [address] [place], [place] [address] * (ABNORMAL) POC GLUCOSE (09/22/2023 8:15 AM CDT) GLUCOSE POC 143(H) 74 - 99 mg/dL 09/22/2023 8:15 AM CDT [facility] LABORATORY SERVICES [facility] SPECIMEN SOURCE, GLUCOSE POC Whole Blood 09/22/2023 8:15 AM CDT [facility] LABORATORY SERVICES [facility] COMMENT, GLU POC Notified RN/ 09/22/2023 8:15 AM CD[address] [facility] LABORATORY SERVICES [facility] Blood, whole 09/22/2023 8:15 AM CDT 09/22/2023 8:27 AM CDT Parviz Sanabria MD POINT OF CARE T [facility] CLIA# [id number] [address] [place] [address] * (ABNORMAL) POC GLUCOSE (09/22/2023 8:02 AM CDT) GLUCOSE POC 134(H) 74 - 99 mg/dL 09/22/2023 8:02 AM CDT [facility] LABORATORY [facility] SPECIMEN SOURCE, GLUCOSE POC Whole Blood 09/22/2023 8:02 AM CDT [facility] LABORATORY SERVICES [facility] COMMENT, GLU POC Notified RN/MD 09/22/2023 8:02 AM CDT [facility] LABORATORY [facility] Blood, whole 09/22/2023 8:02 AM CDT 09/22/2023 9:35 AM CDT Parviz Sanabria MD POINT OF CARE T [place] [facility] CLIA# [id number] [address] [place] [address] * (ABNORMAL) POC GLUCOSE (09/22/2023 6:59 AM CDT) GLUCOSE POC 128(H) 74 - 99 mg/dL 09/22/2023 6:59 AM CDT [facility] LABORATORY [facility] SPECIMEN SOURCE, GLUCOSE POC Whole Blood 09/22/2023 6:59 AM CDT [facility] LABORATORY [facility] Blood, whole 09/22/2023 6:59 AM CDT 09/22/2023 7:07 AM CDT Parviz Sanabria MD POINT OF CARE T [place] [facility] CLIA# [id number] [address] [place] [address] * (ABNORMAL) POC GLUCOSE (09/22/2023 6:06 AM CDT) GLUCOSE POC 115(H) 74 - 99 mg/dL 09/22/2023 6:06 AM CDT [facility] LABORATORY [facility] SPECIMEN SOURCE, GLUCOSE POC Whole Blood 09/22/2023 6:06 AM CDT [facility] LABORATORY SERVICES [facility] COMMENT, GLU POC Notified RN/ 09/22/2023 6:06 AM CDT [facility] LABORATORY SERVICES [facility] Blood, whole 09/22/2023 6:06 AM CDT 09/22/2023 6:13 AM CDT Parviz Sanabria MD POINT OF CARE [facility] Performing Organization Address [facility]/ZIP Co de Phone Number [facility]# [id number] [address] [place] [address] * (ABNORMAL) POC GLUCOSE (09/22/2023 5:11 AM CDT) GLUCOSE POC 114(H) 74 - 99 mg/dL 09/22/2023 5:11 AM CDT [facility] LABORATORY SERVICES [facility] SPECIMEN SOURCE, GLUCOSE POC Whole Blood 09/22/2023 5:11 AM CDT [facility] LABORATORY SERVICES [facility] Blood, whole 09/22/2023 5:11 AM CDT 09/22/2023 5:42 AM CDT Parviz Sanabria MD POINT OF CARE [facility] Performing Organization Address [facility]/ZIP Co de Phone Number [facility]# [id number] [address] [place] [address] * (ABNORMAL) POC GLUCOSE (09/22/2023 4:12 AM CDT) GLUCOSE POC 109(H) 74 - 99 mg/dL 09/22/2023 4:12 AM CDT [facility] LABORATORY SERVICES [facility] SPECIMEN SOURCE, GLUCOSE POC Whole Blood 09/22/2023 4:12 AM CDT [facility] LABORATORY SERVICES [facility] COMMENT, GLU POC Notified RN/ 09/22/2023 4:12 AM CDT [facility] LABORATORY SERVICES [facility] Blood, whole 09/22/2023 4:12 AM CDT 09/22/2023 6:13 AM CDT Parviz Sanabria MD POINT OF CARE T EST[place] [facility] LABORATORY SERVICES [facility] CLIA# [id number] [address] [place] [address] * (ABNORMAL) POC GLUCOSE (09/22/2023 3:05 AM CDT) GLUCOSE POC 112(H) 74 - 99 mg/dL 09/22/2023 3:05 AM CDT [facility] LABORATORY SERVICES - [facility] SPECIMEN SOURCE, GLUCOSE POC Whole Blood 09/22/2023 3:05 AM CDT [facility] LABORATORY SERVICES - [facility] Blood, whole 09/22/2023 3:05 AM CDT 09/22/2023 4:03 AM CDT Parviz Sanabria MD POINT OF CARE T EST[place] Performing Organization Address [facility]/ZIP Co de Phone Number [facility] SERVICES [facility] CLIA# [id number] [address] [place] [address] * (ABNORMAL) POC GLUCOSE (09/22/2023 2:02 AM CDT) GLUCOSE POC 119(H) 74 - 99 mg/dL 09/22/2023 2:02 AM CDT [facility] LABORATORY SERVICES - [facility] SPECIMEN SOURCE, GLUCOSE POC Whole Blood 09/22/2023 2:02 AM CDT [facility] - [facility] COMMENT, GLU POC Notified RN/MD 09/22/2023 2:02 AM CDT [facility]ATORY [facility] - [facility] Blood, whole 09/22/2023 2:02 AM CDT 09/22/2023 2:10 AM CDT Parviz Sanabria MD POINT OF CARE T ESTING [facility] LABORATORY SERVICES [facility] CLIA# [id number] [address] [place] [address] * (ABNORMAL) POC GLUCOSE (09/22/2023 1:06 AM CDT) GLUCOSE POC 104(H) 74 - 99 mg/dL 09/22/2023 1:06 AM CDT [facility] LABORATORY [facility] - [facility] SPECIMEN SOURCE, GLUCOSE POC Whole Blood 09/22/2023 1:06 AM CDT [facility] LABORATORY SERVICES - [facility] Blood, whole 09/22/2023 1:06 AM CDT 09/22/2023 1:17 AM CDT Parviz Sanabria MD POINT OF CARE T ESTING [facility] LABORATORY [facility] CLIA# [id number] [address] [place] [address] * (ABNORMAL) POC GLUCOSE (09/22/2023 12:02 AM CDT) GLUCOSE POC 119(H) 74 - 99 mg/dL 09/22/2023 12:02 AM CDT [facility] LABORATORY SERVICES - [facility] SPECIMEN SOURCE, GLUCOSE POC Whole Blood 09/22/2023 12:02 AM CDT [facility] LABORATORY SERVICES - [facility] COMMENT, GLU POC Notified RN/MD 09/22/2023 12:02 AM CDT [facility] LABORATORY SERVICES - [facility] Blood, whole 09/22/2023 12:0 2 AM CDT 09/22/2023 12:10 AM CDT Parviz Sanabria MD POINT OF CARE T ESTING [facility] CLIA# [id number] [address] [place] [address] * (ABNORMAL) POC GLUCOSE (09/21/2023 11:10 PM CDT) GLUCOSE POC 123(H) 74 - 99 mg/dL 09/21/2023 11:[address] [facility] LABORATORY [facility] - [facility] SPECIMEN SOURCE, GLUCOSE POC Whole Blood 09/21/2023 11:[address] [facility] LABORATORY [facility] - [facility] Blood, whole 09/21/2023 11:1 0 PM CDT 09/21/2023 11:17 PM CDT Parviz Sanabria MD POINT OF CARE T ESTING Performing Organization Address [facility] Co de Phone Number [facility] LABORATORY [facility] CLIA# [id number] [address] [place] [address] * (ABNORMAL) POC GLUCOSE (09/21/2023 10:09 PM CDT) Pathologist [facility] [facility] GLUCOSE POC 125(H) 74 - 99 mg/dL 09/21/2023 10:09 PM CD[address] [facility] LABORATORY [facility] SPECIMEN SOURCE, GLUCOSE POC Whole Blood 09/21/2023 10:09 PM CD[address] [facility] LABORATORY SERVICES [facility] COMMENT, GLU POC Notified RN/MD 09/21/2023 10:09 PM CD[address] [facility] LABORATORY [facility] Blood, whole 09/21/2023 10:0 9 PM CDT 09/21/2023 10:16 PM CDT Parviz Sanabria MD POINT OF CARE T ESTING Performing Organization Address [facility] Co de Phone Number [facility] LABORATORY [facility] CLIA# [id number] [address] [place] [address] * (ABNORMAL) TRIGLYCERIDE (09/21/2023 9:10 PM CDT) Pathologist [facility] TRIGLYCERIDE 1,008(H) <150 mg/dL 09/21/2023 10:07 PM CD[address] [facility] LABORATORY [facility] Blood Venipuncture / Unknown 09/21/2023 9:10 PM CDT 09/21/2023 9:16 PM CDT Narrative [facility] LABORATORY [facility] - 09/21/2023 10:07 PM CDT TRIGLYCERIDES ? mg/dL Normal ?< 150 Borderline High ?150 - 199 High ? 200 - 499 Very High ? >= 500 Based on AHA/NCEP Guidelines. Herlinda Mederos DO CHEMISTRY ORDERABLES Performing Organization Address [facility] Co de Phone Number [facility]# [id number] [address] [place] [address] * (ABNORMAL) POC GLUCOSE (09/21/2023 9:07 PM CDT) GLUCOSE POC 146(H) 74 - 99 mg/dL 09/21/2023 9:07 PM CD[address] [facility] LABORATORY [facility] SPECIMEN SOURCE, GLUCOSE POC Whole Blood 09/21/2023 9:07 PM [address] [facility] Viewpoints [facility] Blood, whole 09/21/2023 9:07 PM CDT 09/21/2023 9:18 PM CDT Parviz Sanabria MD POINT OF CARE T ESTING Performing Organization Address [facility] Co de Phone Number [facility] Viewpoints [facility]# [id number] [address] [place] [address] * (ABNORMAL) POC GLUCOSE (09/21/2023 8:06 PM CDT) GLUCOSE POC 169(H) 74 - 99 mg/dL 09/21/2023 8:06 PM CD[address] [facility] LABORATORY [facility] SPECIMEN SOURCE, GLUCOSE POC Whole Blood 09/21/2023 8:06 PM CD[address] [facility] LABORATORY [facility] COMMENT, GLU POC Notified RN/MD 09/21/2023 8:06 PM CD[address] [facility] LABORATORY [facility] Blood, whole 09/21/2023 8:06 PM CDT 09/21/2023 8:14 PM CDT Parviz Sanabria MD POINT OF CARE T ESTING [facility] LABORATORY [facility] CLIA# [id number] [address] [place] [address] * (ABNORMAL) POC GLUCOSE (09/21/2023 7:09 PM CDT) GLUCOSE POC 140(H) 74 - 99 mg/dL 09/21/2023 7:09 PM CD[address] [facility] LABORATORY SERVICES - [facility] SPECIMEN SOURCE, GLUCOSE POC Whole Blood 09/21/2023 7:09 PM CD[address] [facility] LABORATORY SERVICES [facility] Blood, whole 09/21/2023 7:09 PM CDT 09/21/2023 7:20 PM CDT Parviz Sanabria MD POINT OF CARE T ESTING Performing Organization Address [facility]/ZIP Co de Phone Number [facility] Viewpoints [facility] CLIA# [id number] [address] [place] [address] * POC GLUCOSE (09/21/2023 6:20 PM CDT) GLUCOSE POC 89 74 - 99 mg/dL 09/21/2023 6:20 PM [address] [facility] LABORATORY SERVICES [facility] SPECIMEN SOURCE, GLUCOSE POC Whole Blood 09/21/2023 6:20 PM CDT [facility] SERVICES [facility] COMMENT, GLU POC Notified RN/MD 09/21/2023 6:[address] [facility] LABORATORY SERVICES [facility] Blood, whole 09/21/2023 6:20 PM CDT 09/21/2023 6:31 PM CDT Parviz Sanabria MD POINT OF CARE T ESTING [facility]# [id number] [address] [place] [address] * (ABNORMAL) POC GLUCOSE (09/21/2023 5:18 PM CDT) GLUCOSE POC 109(H) 74 - 99 mg/dL 09/21/2023 5:18 PM [address] [facility] LABORATORY [facility] SPECIMEN SOURCE, GLUCOSE POC Whole Blood 09/21/2023 5:18 PM [address] [facility] LABORATORY [facility] Blood, whole 09/21/2023 5:18 PM CDT 09/21/2023 5:25 PM CDT Parviz Sanabria MD POINT OF CARE T ESTING [facility]# [id number] [address] [place] [address] * (ABNORMAL) POC GLUCOSE (09/21/2023 4:08 PM CDT) GLUCOSE POC 117(H) 74 - 99 mg/dL 09/21/2023 4:08 PM CD[address] [facility] LABORATORY [facility] SPECIMEN SOURCE, GLUCOSE POC Whole Blood 09/21/2023 4:08 PM [address] [facility] LABORATORY [facility] COMMENT, GLU POC Notified RN/MD 09/21/2023 4:08 PM CD[address] [facility] LABORATORY [facility] Blood, whole 09/21/2023 4:08 PM CDT 09/21/2023 4:16 PM CDT Parviz Sanabria MD [id number] [address] [place] [address] * (ABNORMAL) POC GLUCOSE (09/21/2023 3:13 PM CDT) GLUCOSE POC 123(H) 74 - 99 mg/dL 09/21/2023 3:13 [address] [facility] LABORATORY SERVICES - [facility] SPECIMEN SOURCE, GLUCOSE POC Whole Blood 09/21/2023 3:13 PM [address] [facility] LABORATORY SERVICES - [facility] Blood, whole 09/21/2023 3:13 PM CDT 09/21/2023 3:20 PM CDT Parviz Sanabria MD POINT OF CARE T ESTING [facility] LABORATORY [facility] CLIA# [id number] [address] [place] [address] * (ABNORMAL) POC GLUCOSE (09/21/2023 2:11 PM CDT) GLUCOSE POC 128(H) 74 - 99 mg/dL 09/21/2023 2:11 [address] [facility] LABORATORY SERVICES - [facility] SPECIMEN SOURCE, GLUCOSE POC Whole Blood 09/21/2023 2:11 PM [address] [facility] LABORATORY SERVICES [facility] COMMENT, GLU POC Notified RN/MD 09/21/2023 2:11 [address] [facility] LABORATORY SERVICES [facility] Blood, whole 09/21/2023 2:11 PM CDT 09/21/2023 2:19 PM CDT [facility]viz Sanabria MD [facility] Performing Organization Address City/[facility]/ZIP Co de Phone Number [facility] LABORATORY [facility] CLIA# [id number] [address] [place] [address] * (ABNORMAL) POC GLUCOSE (09/21/2023 1:14 PM CDT) GLUCOSE POC 150(H) 74 - 99 mg/dL 09/21/2023 1:14 PM CD[address] [facility] LABORATORY SERVICES [facility] SPECIMEN SOURCE, GLUCOSE POC Whole Blood 09/21/2023 1:14 PM CD[address] [facility] LABORATORY SERVICES [facility] Blood, whole 09/21/2023 1:14 PM CDT 09/21/2023 1:21 PM CDT Parviz Sanabria MD POINT OF CARE T [facility] Performing Organization Address [facility] Co de Phone Number [facility] [id number] [address] [place] [address] * (ABNORMAL) POC GLUCOSE (09/21/2023 12:06 PM CDT) GLUCOSE POC 117(H) 74 - 99 mg/dL 09/21/2023 12:06 PM CD[address] [facility] LABORATORY SERVICES [facility] SPECIMEN SOURCE, GLUCOSE POC Whole Blood 09/21/2023 12:06 PM CD[address] [facility] LABORATORY SERVICES [facility] COMMENT, GLU POC Notified RN/MD 09/21/2023 12:06 PM CD[address] [facility] LABORATORY SERVICES [facility] Blood, whole 09/21/2023 12:0 6 PM CDT 09/21/2023 12:16 PM CDT Parviz Sanabria MD POINT OF CARE T [facility] Performing Organization Address [facility] Co de Phone Number [facility] Viewpoints [facility]# [id number] [address] [place] [address] * (ABNORMAL) POC GLUCOSE (09/21/2023 11:18 AM CDT) GLUCOSE POC 135(H) 74 - 99 mg/dL 09/21/2023 11:18 AM CDT [facility] LABORATORY SERVICES [facility] SPECIMEN SOURCE, GLUCOSE POC Whole Blood 09/21/2023 11:18 AM CDT [facility] COMMENT, GLU POC Notified RN/MD 09/21/2023 11:18 AM CDT [facility] Blood, whole 09/21/2023 11:1 8 AM CDT 09/21/2023 12:31 PM CDT Parviz Sanabria MD POINT OF CARE [facility] Performing Organization Address [facility]/ZIP Co de Phone Number [facility]# [id number] [address] [place] [address] * (ABNORMAL) POC GLUCOSE (09/21/2023 10:18 AM CDT) GLUCOSE POC 135(H) 74 - 99 mg/dL 09/21/2023 10:18 AM CDT [facility] LABORATORY [facility] SPECIMEN SOURCE, GLUCOSE POC Whole Blood 09/21/2023 10:18 AM CDT [facility] LABORATORY [facility] Blood, whole 09/21/2023 10:1 8 AM CDT 09/21/2023 10:25 AM CDT Parviz Sanabria MD POINT OF CARE [facility] Performing Organization Address [facility] Co de Phone Number [facility] Viewpoints [facility]# [id number] [address] [place] [address] * (ABNORMAL) TRIGLYCERIDE (09/21/2023 9:07 AM CDT) Pathologist [facility] TRIGLYCERIDE 1,142(H) <150 mg/dL 09/21/2023 10:51 AM CDT [facility] LABORATORY [facility] Blood Venipuncture / Unknown 09/21/2023 9:07 AM CDT 09/21/2023 9:11 AM CDT Narrative [facility] LABORATORY [facility] - 09/21/2023 10:51 AM CDT TRIGLYCERIDES ? mg/dL Normal ?< 150 Borderline High ?150 - 199 High ? 200 - 499 Very High ? >= 500 Based on AHA/NCEP Guidelines. Herlinda Mederos DO CHEMISTRY ORDERABLES [facility] LABORATORY [facility] CLIA# [id number] [address] [place] [address] * (ABNORMAL) POC GLUCOSE (09/21/2023 9:04 AM CDT) GLUCOSE POC 159(H) 74 - 99 mg/dL 09/21/2023 9:04 AM CDT [facility] LABORATORY SERVICES - [facility] SPECIMEN SOURCE, GLUCOSE POC Whole Blood 09/21/2023 9:04 AM CDT [facility] LABORATORY SERVICES [facility] Blood, whole 09/21/2023 9:04 AM CDT 09/21/2023 9:16 AM CDT Parviz Sanabria MD POINT OF CARE T [facility] Performing Organization Address [facility]/ZIP Co de Phone Number [facility] LABORATORY [facility] CLIA# [id number] [address] [place] [address] * (ABNORMAL) POC GLUCOSE (09/21/2023 8:00 AM CDT) GLUCOSE POC 142(H) 74 - 99 mg/dL 09/21/2023 8:00 AM CDT [facility] LABORATORY SERVICES - [facility] SPECIMEN SOURCE, GLUCOSE POC Whole Blood 09/21/2023 8:00 AM CDT [facility] LABORATORY SERVICES [facility] COMMENT, GLU POC Notified RN/MD 09/21/2023 8:00 AM CDT [facility] LABORATORY SERVICES [facility] Blood, whole 09/21/2023 8:00 AM CDT 09/21/2023 8:16 AM CDT Parviz Sanabria MD [facility] LABORATORY [facility] CLIA# [id number] [address] [place] [address] * (ABNORMAL) POC GLUCOSE (09/21/2023 7:04 AM CDT) GLUCOSE POC 159(H) 74 - 99 mg/dL 09/21/2023 7:04 AM CDT [facility] LABORATORY SERVICES - [facility] SPECIMEN SOURCE, GLUCOSE POC Whole Blood 09/21/2023 7:04 AM CDT [facility] LABORATORY SERVICES - [facility] Blood, whole 09/21/2023 7:04 AM CDT 09/21/2023 7:12 AM CDT Parviz Sanabria MD POINT OF CARE T [place] Performing Organization Address [facility]/ZIP Co de Phone Number [facility] LABORATORY [facility] CLIA# [id number] [address] [place] [address] * (ABNORMAL) POC GLUCOSE (09/21/2023 6:12 AM CDT) GLUCOSE POC 163(H) 74 - 99 mg/dL 09/21/2023 6:12 AM CDT [facility] LABORATORY SERVICES - [facility] SPECIMEN SOURCE, GLUCOSE POC Whole Blood 09/21/2023 6:12 AM CDT [facility] LABORATORY SERVICES - [facility] Blood, whole 09/21/2023 6:12 AM CDT 09/21/2023 6:29 AM CDT Parviz Sanabria MD POINT OF CARE T EST[place] [facility] LABORATORY [facility] CLIA# [id number] [address] [place] [address] * (ABNORMAL) POC GLUCOSE (09/21/2023 4:58 AM CDT) GLUCOSE POC 144(H) 74 - 99 mg/dL 09/21/2023 4:58 AM CDT [facility] LABORATORY SERVICES - [facility] SPECIMEN SOURCE, GLUCOSE POC Whole Blood 09/21/2023 4:58 AM CDT [facility] LABORATORY SERVICES - [facility] Blood, whole 09/21/2023 4:58 AM CDT 09/21/2023 5:05 AM CDT Parviz Sanabria MD POINT OF CARE T ESTING [facility] LABORATORY SERVICES [facility] CLIA# [id number] [address] [place] [address] * (ABNORMAL) POC GLUCOSE (09/21/2023 4:04 AM CDT) GLUCOSE POC 146(H) 74 - 99 mg/dL 09/21/2023 4:04 AM CDT [facility] LABORATORY SERVICES - [facility] SPECIMEN SOURCE, GLUCOSE POC Whole Blood 09/21/2023 4:04 AM CDT [facility] LABORATORY SERVICES [facility] Blood, whole 09/21/2023 4:04 AM CDT 09/21/2023 4:11 AM CDT Parviz Sanabria MD POINT OF CARE T EST[place] [facility] LABORATORY SERVICES [facility] CLIA# [id number] [address] [place] [address] * (ABNORMAL) POC GLUCOSE (09/21/2023 4:03 AM CDT) GLUCOSE POC 199(H) 74 - 99 mg/dL 09/21/2023 4:03 AM CDT [facility] LABORATORY SERVICES - [facility] SPECIMEN SOURCE, GLUCOSE POC Whole Blood 09/21/2023 4:03 AM CDT [facility] Blood, whole 09/21/2023 4:03 AM CDT 09/21/2023 4:11 AM CDT Parviz Sanabria MD POINT OF CARE T EST[place] [facility] LABORATORY [facility] CLIA# [id number] [address] [place] [address] * (ABNORMAL) POC GLUCOSE (09/21/2023 3:18 AM CDT) GLUCOSE POC 132(H) 74 - 99 mg/dL 09/21/2023 3:18 AM CDT [facility] LABORATORY SERVICES - [facility] SPECIMEN SOURCE, GLUCOSE POC Whole Blood 09/21/2023 3:18 AM CDT [facility] LABORATORY SERVICES - [facility] Blood, whole 09/21/2023 3:18 AM CDT 09/21/2023 3:26 AM CDT Parviz aSnabria MD POINT OF CARE T EST[place] [facility] Viewpoints [facility] CLWI# [id number] [address] [place] [address] * (ABNORMAL) POC GLUCOSE (09/21/2023 3:16 AM CDT) GLUCOSE POC 230(H) 74 - 99 mg/dL 09/21/2023 3:16 AM CDT [facility] LABORATORY SERVICES - [facility] SPECIMEN SOURCE, GLUCOSE POC Whole Blood 09/21/2023 3:16 AM CD[address] [facility] LABORATORY [facility] Blood, whole 09/21/2023 3:16 AM CDT 09/21/2023 3:26 AM CDT Parviz Sanabria MD POINT OF CARE T EST[place] [facility] Viewpoints [facility] CLWI# [id number] [address] [place] [address] * (ABNORMAL) POC GLUCOSE (09/21/2023 1:27 AM CDT) GLUCOSE POC 136(H) 74 - 99 mg/dL 09/21/2023 1:27 AM CDT [facility] LABORATORY SERVICES - [facility] SPECIMEN SOURCE, GLUCOSE POC Whole Blood 09/21/2023 1:27 AM CDT [facility] LABORATORY SERVICES - [facility] Blood, whole 09/21/2023 1:27 AM CDT 09/21/2023 1:34 AM CDT Parviz Sanabria MD POINT OF CARE T EST[place] [facility] LABORATORY SERVICES [facility] CLIA# [id number] [address] [place] [address] * (ABNORMAL) POC GLUCOSE (09/21/2023 12:15 AM CDT) GLUCOSE POC 146(H) 74 - 99 mg/dL 09/21/2023 12:15 AM CDT [employer] LABORATORY SERVICES - [facility] SPECIMEN SOURCE, GLUCOSE POC Whole Blood 09/21/2023 12:15 AM CDT [employer] LABORATORY SERVICES [facility] Blood, whole 09/21/2023 12:1 5 AM CDT 09/21/2023 2:14 AM CDT Parviz Sanabria MD POINT OF CARE T [place] [facility] Viewpoints SERVICES [facility]# [id number] [address] [place] [address] * (ABNORMAL) POC GLUCOSE (09/20/2023 11:04 PM CDT) GLUCOSE POC 129(H) 74 - 99 mg/dL 09/20/2023 11:[address] [facility] LABORATORY SERVICES - [facility] SPECIMEN SOURCE, GLUCOSE POC Whole Blood 09/20/2023 11:04 PM CDT [employer] LABORATORY SERVICES - [facility] Blood, whole 09/20/2023 11:0 4 PM CDT 09/21/2023 12:18 AM CDT Parviz Sanabria MD POINT OF CARE T [place] [facility] LABORATORY [facility] CLIA# [id number] [address] [place] [address] * (ABNORMAL) POC GLUCOSE (09/20/2023 10:10 PM CDT) Pathologist [facility] GLUCOSE POC 131(H) 74 - 99 mg/dL 09/20/2023 10:[address] [facility] LABORATORY [facility] SPECIMEN SOURCE, GLUCOSE POC Whole Blood 09/20/2023 10:10 PM [address] [facility] LABORATORY [facility] Blood, whole 09/20/2023 10:1 0 PM CDT 09/20/2023 10:17 PM CDT Parviz Sanabria MD POINT OF CARE T [place] Performing Organization Address [facility]/ZIP Co de Phone Number [facility]# [id number] [address] [place] [address] * (ABNORMAL) TRIGLYCERIDE (09/20/2023 9:43 PM CDT) [facility] TRIGLYCERIDE 1,304(H) <150 mg/dL 09/20/2023 11:[address] [facility] LABORATORY [facility] Blood Venipuncture / Unknown 09/20/2023 9:43 PM CDT 09/20/2023 9:48 PM CDT Narrative [facility] LABORATORY [facility] - 09/20/2023 11:05 PM CDT TRIGLYCERIDES ? mg/dL Normal ?< 150 Borderline High ?150 - 199 High ? 200 - 499 Very High ? >= 500 Based on AHA/NCEP Guidelines. Herlinda Mederos DO CHEMISTRY ORDERABLES Performing Organization Address [facility]/ZIP Co de Phone Number [facility]# [id number] [address] [place] [address] * (ABNORMAL) POC GLUCOSE (09/20/2023 9:12 PM CDT) GLUCOSE POC 118(H) 74 - 99 mg/dL 09/20/2023 9:[address] [facility] LABORATORY [facility] SPECIMEN SOURCE, GLUCOSE POC Whole Blood 09/20/2023 9:12 PM [address] [facility] LABORATORY SERVICES [facility] Blood, whole 09/20/2023 9:12 PM CDT 09/20/2023 9:19 PM CDT Parviz Sanabria MD POINT OF CARE T [place] [id number] [address] [place] [address] * (ABNORMAL) POC GLUCOSE (09/20/2023 8:04 PM CDT) GLUCOSE POC 115(H) 74 - 99 mg/dL 09/20/2023 8:04 PM CD[address] [facility] SPECIMEN SOURCE, GLUCOSE POC Whole Blood 09/20/2023 8:04 PM CD[address] [facility] Blood, whole 09/20/2023 8:04 PM CDT 09/20/2023 9:19 PM CDT Parviz Sanabria MD POINT OF CARE T [place] [facility] Viewpoints [facility] CLIA# [id number] [address] [place] [address] * (ABNORMAL) POC GLUCOSE (09/20/2023 6:59 PM CDT) GLUCOSE POC 129(H) 74 - 99 mg/dL 09/20/2023 6:59 PM [address] [facility] SPECIMEN SOURCE, GLUCOSE POC Whole Blood 09/20/2023 6:59 PM [address] [facility] SERVICES [facility] COMMENT, GLU POC Notified RN/MD 09/20/2023 6:59 PM [address] [facility] Blood, whole 09/20/2023 6:59 PM CDT 09/20/2023 7:07 PM CDT Parviz Sanabria MD [facility] Performing Organization Address [facility]/ZIP Co de Phone Number [facility]# [id number] [address] [place] [address] * (ABNORMAL) POC GLUCOSE (09/20/2023 6:01 PM CDT) GLUCOSE POC 128(H) 74 - 99 mg/dL 09/20/2023 6:01 PM CD[address] [facility] SERVICES [facility] SPECIMEN SOURCE, GLUCOSE POC Whole Blood 09/20/2023 6:[address] PM [address] [facility] COMMENT, GLU POC Notified BREANN 09/20/2023 6:[address] PM [address] [facility] Blood, whole 09/20/2023 6:01 PM CDT 09/20/2023 6:08 PM CDT Parviz Sanabria MD POINT OF CARE T [place] Performing Organization Address [facility]/ZIP Co de Phone Number [facility]# [id number] [address] [place] [address] * (ABNORMAL) POC GLUCOSE (09/20/2023 5:11 PM CDT) GLUCOSE POC 129(H) 74 - 99 mg/dL 09/20/2023 5:[address] [facility] SERVICES [facility] SPECIMEN SOURCE, GLUCOSE POC Whole Blood 09/20/2023 5:[address] [facility] COMMENT, GLU POC Notified BREANN 09/20/2023 5:[address] [facility] Blood, whole 09/20/2023 5:11 PM CDT 09/20/2023 5:27 PM CDT Parviz Sanabria MD POINT OF CARE [facility] Performing Organization Address [facility]/ZIP Co de Phone Number [facility]# [id number] [address] [place] [address] * (ABNORMAL) POC GLUCOSE (09/20/2023 4:07 PM CDT) GLUCOSE POC 118(H) 74 - 99 mg/dL 09/20/2023 4:07 PM [address] [facility] LABORATORY SERVICES [facility] SPECIMEN SOURCE, GLUCOSE POC Whole Blood 09/20/2023 4:07 PM CD[address] [facility] LABORATORY SERVICES [facility] COMMENT, GLU POC Notified RN/MD 09/20/2023 4:07 PM CDT [facility] LABORATORY SERVICES [facility] Blood, whole 09/20/2023 4:07 PM CDT 09/20/2023 4:20 PM CDT Parviz Sanabria MD POINT OF CARE [facility] Performing Organization Address [facility] Co de Phone Number [facility] Viewpoints [facility]# [id number] [address] [place] [address] * (ABNORMAL) POC GLUCOSE (09/20/2023 3:01 PM CDT) GLUCOSE POC 109(H) 74 - 99 mg/dL 09/20/2023 3:01 PM CDT [facility] LABORATORY SERVICES [facility] SPECIMEN SOURCE, GLUCOSE POC Whole Blood 09/20/2023 3:01 PM CD[address] [facility] LABORATORY SERVICES [facility] COMMENT, GLU POC Notified RN/MD 09/20/2023 3:01 PM CDT [facility] LABORATORY SERVICES [facility] Blood, whole 09/20/2023 3:01 PM CDT 09/20/2023 3:15 PM CDT Parviz Sanabria MD [facility] Performing Organization Address [facility]/ZIP Co de Phone Number [facility] Viewpoints [facility] CLIA# [id number] [address] [place] [address] * (ABNORMAL) POC GLUCOSE (09/20/2023 2:04 PM CDT) GLUCOSE POC 107(H) 74 - 99 mg/dL 09/20/2023 2:04 PM CDT [employer] LABORATORY SERVICES - [facility] SPECIMEN SOURCE, GLUCOSE POC Whole Blood 09/20/2023 2:04 PM CDT [employer] LABORATORY SERVICES [facility] COMMENT, GLU POC Notified RN/MD 09/20/2023 2:04 PM CDT [employer] LABORATORY SERVICES [facility] Blood, whole 09/20/2023 2:04 PM CDT 09/20/2023 2:11 PM CDT Parivz Sanabria MD [facility] Performing Organization Address [facility] Co de Phone Number [facility] Viewpoints [facility] [id number] [address] [place] [address] * (ABNORMAL) POC GLUCOSE (09/20/2023 1:07 PM CDT) GLUCOSE POC 125(H) 74 - 99 mg/dL 09/20/2023 1:07 PM CDT [employer] LABORATORY SERVICES - [facility] SPECIMEN SOURCE, GLUCOSE POC Whole Blood 09/20/2023 1:07 PM CDT [employer] LABORATORY SERVICES [facility] COMMENT, GLU POC Notified RN/ 09/20/2023 1:07 PM CDT [facility] Blood, whole 09/20/2023 1:07 PM CDT 09/20/2023 1:15 PM CDT Parviz Sanabria MD [facility] [employer] LABORATORY SERVICES [facility] CLIA# [id number] [address] [place] [address] * (ABNORMAL) POC GLUCOSE (09/20/2023 12:18 PM CDT) GLUCOSE POC 135(H) 74 - 99 mg/dL 09/20/2023 12:18 PM CD[address] [facility] LABORATORY [facility] SPECIMEN SOURCE, GLUCOSE POC Whole Blood 09/20/2023 12:18 PM [address] [facility] LABORATORY SERVICES [facility] COMMENT, GLU POC Notified RN/MD 09/20/2023 12:18 PM CD[address] [facility] LABORATORY SERVICES [facility] Blood, whole 09/20/2023 12:1 8 PM CDT 09/20/2023 12:29 PM CDT Parviz Sanabria MD POINT OF CARE [facility]# [id number] [address] [place] [address] * (ABNORMAL) POC GLUCOSE (09/20/2023 11:23 AM CDT) GLUCOSE POC 131(H) 74 - 99 mg/dL 09/20/2023 11:23 AM CDT [facility] LABORATORY SERVICES [facility] SPECIMEN SOURCE, GLUCOSE POC Whole Blood 09/20/2023 11:23 AM CDT [facility] LABORATORY SERVICES [facility] COMMENT, GLU POC Notified RN/MD 09/20/2023 11:23 AM CDT [facility] LABORATORY SERVICES [facility] Blood, whole 09/20/2023 11:2 3 AM CDT 09/20/2023 11:34 AM CDT Parviz Sanabria MD POINT OF CARE T [facility] CLIA# [id number] [address] [place] [address] * ECHOCARDIOGRAM W/ CONTRAST AGENT (09/20/2023 11:02 AM CDT) EJECTION FRACTION 60 INTERFACE SYSTEM 09/20/2023 10:2 1 AM CDT Narrative INTERFACE SYSTEM - 09/20/2023 11:04 AM CDT [address] [address] [email or web address] [email or web address] Patient: ? Casandra DossN: ? [id number] Study ID: ?ECHO COMPLETE Gender: ?F : ? 1975 Age: ? 47 Race: ?CAU Height ? 165.1cm Study Date: ?09/20/2023 Weight: ?86.2kg Access. #: ? [id number] Account #: ? [id number] BP: *Referring Physician:* Herlinda Mederos *Ordering Physician:* ??Herlinda Mederos prepress manager: Nurse: STUDY CONCLUSIONS: SUMMARY: - Left ventricle: [...] AM. ?Prepared and Electronically Authenticated Gigi Maza [id number]:23 Procedure Note Gigi Maza MD - 09/20/[address] [address] [email or web address] Echocardiogram Patient: Casandra Doss Study ID: ECHO COMPLETE Gender: F : 1975 Age: 47 Race: ANNEMARIE Height 165.1cm Study Date: 09/20/2023 Weight: 86.2kg Access. #: [id number] BP: *Referring Physician:Herlinda Valerio *Ordering Physician:Herlinda Valerio prepress manager: Nurse: STUDY CONCLUSIONS: SUMMARY: - Left ventricle: [...] 10:21 AM. Prepared andElectronically Authenticated Gigi Maza [id number]:23 Herlinda BOSS ORDERABLES INTERFACE SYSTEM Refer to clinic/hospital department * (ABNORMAL) POC GLUCOSE (09/20/2023 10:09 AM CDT) GLUCOSE POC 129(H) 74 - 99 mg/dL 09/20/2023 10:09 AM CDT [facility] Viewpoints [facility] SPECIMEN SOURCE, GLUCOSE POC Whole Blood 09/20/2023 10:09 AM CDT [employer] LABORATORY SERVICES [facility] COMMENT, GLU POC Notified RN/ 09/20/2023 10:09 AM CDT [employer] LABORATORY SERVICES [facility] Blood, whole 09/20/2023 10:0 9 AM CDT 09/20/2023 10:18 AM CDT Parviz Sanabria MD POINT OF CARE T [place] Performing Organization Address [facility] de Phone Number [facility] Viewpoints [facility] CLIA# [id number] [address] [facility] [address] [place] [address] * (ABNORMAL) POC GLUCOSE (09/20/2023 9:15 AM CDT) GLUCOSE POC 140(H) 74 - 99 mg/dL 09/20/2023 9:15 AM CDT [employer] LABORATORY SERVICES [facility] SPECIMEN SOURCE, GLUCOSE POC Whole Blood 09/20/2023 9:15 AM CDT [employer] LABORATORY SERVICES [facility] COMMENT, GLU POC Notified RN/ 09/20/2023 9:15 AM CDT [employer] LABORATORY SERVICES [facility] Blood, whole 09/20/2023 9:15 AM CDT 09/20/2023 9:23 AM CDT Parviz Sanabria MD POINT OF CARE T [place] Performing Organization Address [facility] de Phone Number [facility] Viewpoints [facility] CLIA# [id number] [address] [facility] [address] [place] [address] * (ABNORMAL) POC GLUCOSE (09/20/2023 8:10 AM CDT) GLUCOSE POC 110(H) 74 - 99 mg/dL 09/20/2023 8:10 AM CDT [employer] LABORATORY SERVICES [facility] SPECIMEN SOURCE, GLUCOSE POC Whole Blood 09/20/2023 8:10 AM CDT [employer] LABORATORY SERVICES [facility] COMMENT, GLU POC Notified RN/ 09/20/2023 8:10 AM CD[address] [facility] Viewpoints [facility] Blood, whole 09/20/2023 8:10 AM CDT 09/20/2023 8:29 AM CDT Parviz Snaabria MD POINT OF CARE T [place] Performing Organization Address [facility]/ZIP Co de Phone Number [facility] Viewpoints [facility]# [id number] [address] [place] [address] * (ABNORMAL) TRIGLYCERIDE (09/20/2023 7:56 AM CDT) TRIGLYCERIDE 1,646(H) <150 mg/dL 09/20/2023 8:53 AM CDT [facility] Viewpoints [facility] Blood Venipuncture / Unknown 09/20/2023 7:56 AM CDT 09/20/2023 8:06 AM CDT Narrative [facility] Viewpoints [facility] - 09/20/2023 8:53 AM CDT TRIGLYCERIDES ? mg/dL Normal ?< 150 Borderline High ?150 - 199 High ? 200 - 499 Very High ? >= 500 Based on AHA/NCEP Guidelines. Herlinda Mederos DO CHEMISTRY ORDERABLES Performing Organization Address City/[facility]/ZIP Co de Phone Number [facility] Viewpoints [facility]# [id number] [address] [place] [address] * (ABNORMAL) POC GLUCOSE (09/20/2023 7:10 AM CDT) GLUCOSE POC 118(H) 74 - 99 mg/dL 09/20/2023 7:10 AM CDT [facility] Viewpoints [facility] SPECIMEN SOURCE, GLUCOSE POC Whole Blood 09/20/2023 7:10 AM CDT [facility] Viewpoints [facility] COMMENT, GLU POC Notified RN/MD 09/20/2023 7:10 AM CDT [facility] LABORATORY SERVICES [facility] Blood, whole 09/20/2023 7:10 AM CDT 09/20/2023 7:23 AM CDT Herlinda Mederos DO POINT OF CARE TESTIN G Performing Organization Address [facility] Co de Phone Number [facility]# [id number] [address] [place] [address] * (ABNORMAL) POC GLUCOSE (09/20/2023 4:53 AM CDT) GLUCOSE POC 111(H) 74 - 99 mg/dL 09/20/2023 4:53 AM T [facility] LABORATORY [facility] SPECIMEN SOURCE, GLUCOSE POC Whole Blood 09/20/2023 4:53 AM CDT [facility] LABORATORY [facility] COMMENT, GLU POC Notified RN/ 09/20/2023 4:53 AM T [facility] Blood, whole 09/20/2023 4:53 AM CDT 09/20/2023 5:01 AM CDT Herlinda Mederos DO POINT OF CARE TESTIN G Performing Organization Address [facility] Co de Phone Number [facility] Viewpoints [facility]# [id number] [address] [place] [address] * (ABNORMAL) COMPREHENSIVE METABOLIC PANEL (09/20/2023 4:06 AM CDT) SODIUM 136 136 - 145 mmol/L 09/20/2023 5:05 AM T [facility] Viewpoints [facility] POTASSIUM 4.1 3.5 - 5.0 mmol/L 09/20/2023 5:05 AM T [facility] Comment:Moderate hemolysis p resent. Can cause significant falsely elevated result. Redraw if indicated. CHLORIDE 102 98 - 107 mmol/L 09/20/2023 5:05 AM CDT [facility] LABORATORY [facility] CO2 23 22 - 29 mmol/L 09/20/2023 5:05 AM [facility] CALCIUM 8.4(L) 8.6 - 10.2 mg/dL 09/20/2023 5:05 AM [facility] Comment:Significant change f rom prior result, correlate clinically and redraw if necessary. BUN 11 6 - 20 mg/dL 09/20/2023 5:05 AM [facility] CREATININE 0.48(L) 0.51 - 0.95 mg/dL 09/20/2023 5:05 AM [facility] GLUCOSE 102(H) 74 - 99 mg/dL 09/20/2023 5:05 AM [facility] TOTAL PROTEIN 6.1(L) 6.7 - 8.6 g/dL 09/20/2023 5:05 AM [facility] ALBUMIN 3.7 3.5 - 5.2 g/dL 09/20/2023 5:05 AM [facility] Comment:Significant change f rom prior result, correlate clinically and redraw if necessary. BILIRUBIN TOTAL 0.2(L) 0.3 - 1.2 mg/dL 09/20/2023 5:05 AM [facility] ALKALINE PHOSPHATASE 70 35 - 104 U/L 09/20/2023 5:05 AM [facility] AST 21 <33 U/L 09/20/2023 5:05 AM [facility] Comment:Hemolysis present. R esult may be falsely elevated. ALT 17 <34 U/L 09/20/2023 5:05 AM [facility] Comment:Hemolysis present. R esult may be falsely elevated. GFR >60 >=60 mL/min/1.7 3 sq meter 09/20/2023 5:05 AM [facility] Comment:eGFR calculated with 2020 CKD-EPI equation. Vegetarian diet, extremely high or low muscle mass, and may affect results. Cystatin C with Glomerular Filtration Rate is a suitable alternative for these patients. ANION GAP 11 8 - 16 mmol/L 09/20/2023 5:05 AM [facility] LABORATORY [facility] Blood Venipuncture / Unknown 09/20/2023 4:06 AM CDT 09/20/2023 4:18 AM CDT [facility] LABORATORY [facility] - 09/20/2023 5:05 AM CDT Samples containing indocyanine green cause interferences on Total and/or Direct Bilirubin and must not be measured. Herlinda Mederos DO CHEMISTRY ORDERABLES [facility] Viewpoints [facility] CLIA# [id number] [address] [facility] [place] [place] [address] * (ABNORMAL) CBC WITHOUT DIFFERENTIAL (09/20/2023 4:06 AM CDT) WBC 6.6 4.0 - 9.8 K/uL 09/20/2023 5:29 AM [facility] LABORATORY [facility] RBC 4.05 3.90 - 4.90 M/uL 09/20/2023 5:29 AM [facility] LABORATORY [facility] HEMOGLOBIN 11.7(L) 11.8 - 14.8 g/dL 09/20/2023 5:29 AM [facility] LABORATORY [facility] Comment:Significant change f rom prior result, correlate clinically and redraw if necessary. HEMATOCRIT 34.7(L) 35.5 - 44.0 % 09/20/2023 5:29 AM [facility] LABORATORY [facility] MCV 85.7 82.0 - 99.0 fL 09/20/2023 5:29 AM [facility] Viewpoints [facility] MCH 28.9 27.2 - 32.6 pg 09/20/2023 5:29 AM [facility] LABORATORY [facility] MCHC 33.7 31.5 - 35.5 g/dL 09/20/2023 5:29 AM [facility] LABORATORY [facility] PLATELETS 255 140 - 350 K/uL 09/20/2023 5:29 AM [facility] LABORATORY SERVICES - [facility] MPV 9.2(L) 9.3 - 12.4 fL 09/20/2023 5:29 AM CDT [facility] LABORATORY SERVICES - [facility] RDW 15.0(H) 11.5 - 14.5 % 09/20/2023 5:29 AM CDT [facility] LABORATORY SERVICES - [facility] RDW-STDEV 47.5 37.1 - 48.7 fL 09/20/2023 5:29 AM CDT [facility] LABORATORY SERVICES - [facility] Blood Venipuncture / Unknown 09/20/2023 4:06 AM CDT 09/20/2023 4:18 AM CDT Herlinda Mederos DO HEMATOLOGY ORDERABLE S Performing Organization Address City/[facility]/ZIP Co de Phone Number [facility] CLIA# [id number] [address] [place] [address] * (ABNORMAL) POC GLUCOSE (09/20/2023 4:01 AM CDT) GLUCOSE POC 105(H) 74 - 99 mg/dL 09/20/2023 4:01 AM CDT [facility] LABORATORY [facility] SPECIMEN SOURCE, GLUCOSE POC Whole Blood 09/20/2023 4:01 AM CDT [facility] LABORATORY [facility] Blood, whole 09/20/2023 4:01 AM CDT 09/20/2023 4:18 AM CDT Herlinda Mederos DO POINT OF CARE TESTIN G [facility] CLIA# [id number] [address] [place] [address] * (ABNORMAL) POC GLUCOSE (09/20/2023 2:54 AM CDT) GLUCOSE POC 110(H) 74 - 99 mg/dL 09/20/2023 2:54 AM CDT [facility] LABORATORY [facility] SPECIMEN SOURCE, GLUCOSE POC Whole Blood 09/20/2023 2:54 AM CDT [facility] LABORATORY SERVICES [facility] COMMENT, GLU POC Notified RN/MD 09/20/2023 2:54 AM CDT [facility] LABORATORY SERVICES - [facility] Blood, whole 09/20/2023 2:54 AM CDT 09/20/2023 3:01 AM CDT Herlinda Mederos DO POINT OF CARE TESTIN G Performing Organization Address City/[facility]/ZIP Co de Phone Number [facility] Viewpoints [id number] [address] [place] [address] * (ABNORMAL) POC GLUCOSE (09/20/2023 1:51 AM CDT) GLUCOSE POC 102(H) 74 - 99 mg/dL 09/20/2023 1:51 AM CDT [facility] LABORATORY [facility] SPECIMEN SOURCE, GLUCOSE POC Whole Blood 09/20/2023 1:51 AM CDT [facility] LABORATORY [facility] Blood, whole 09/20/2023 1:51 AM CDT 09/20/2023 2:09 AM CDT Herlinda Mederos DO POINT OF CARE TESTIN G [facility] Viewpoints [facility] CLIA# [id number] [address] [place] [address] * POC GLUCOSE (09/20/2023 12:58 AM CDT) GLUCOSE POC 82 74 - 99 mg/dL 09/20/2023 12:58 AM CDT [facility] SPECIMEN SOURCE, GLUCOSE POC Whole Blood 09/20/2023 12:58 AM CDT [facility] LABORATORY SERVICES [facility] Blood, whole 09/20/2023 12:5 8 AM CDT 09/20/2023 1:07 AM CDT Herlinda Mederos DO POINT OF CARE TESTIN G Performing Organization Address City/[facility]/ZIP Co de Phone Number [facility] Viewpoints [facility] CLIA# [id number] [address] [place] [address] * (ABNORMAL) POC GLUCOSE (09/19/2023 11:55 PM CDT) GLUCOSE POC 117(H) 74 - 99 mg/dL 09/19/2023 11:55 PM CDT [facility] LABORATORY SERVICES [facility] SPECIMEN SOURCE, GLUCOSE POC Whole Blood 09/19/2023 11:55 PM CDT [facility] LABORATORY SERVICES [facility] COMMENT, GLU POC Notified RN/MD 09/19/2023 11:55 PM [address] [facility] LABORATORY [facility] Blood, whole 09/19/2023 11:5 5 PM CDT 09/20/2023 12:02 AM CDT Herlinda Gatito REHMAN POINT OF CARE TESTIN Maggie Performing Organization Address [facility]/ZIP Co de Phone Number [facility] LABORATORY [facility] CLIA# [id number] [address] [place] [address] * (ABNORMAL) POC GLUCOSE (09/19/2023 10:52 PM CDT) GLUCOSE POC 126(H) 74 - 99 mg/dL 09/19/2023 10:52 PM CDT [facility] LABORATORY [facility] SPECIMEN SOURCE, GLUCOSE POC Whole Blood 09/19/2023 10:52 PM CD[address] [facility] LABORATORY [facility] Blood, whole 09/19/2023 10:5 2 PM CDT 09/19/2023 10:59 PM CDT W[place]iti Gatito REHMAN POINT OF CARE TESTIN Maggie [facility] LABORATORY [facility] CLIA# [id number] [address] [place] [address] * (ABNORMAL) POC GLUCOSE (09/19/2023 10:04 PM CDT) GLUCOSE POC 130(H) 74 - 99 mg/dL 09/19/2023 10:04 PM CDT [facility] SPECIMEN SOURCE, GLUCOSE POC Whole Blood 09/19/2023 10:04 PM CDT [facility] Blood, whole 09/19/2023 10:0 4 PM CDT 09/19/2023 10:12 PM CDT Herlinda Mederos DO POINT OF CARE TESTIN G [facility] CLIA# [id number] [address] [place] [address] * (ABNORMAL) TRIGLYCERIDE (09/19/2023 8:56 PM CDT) Pathologist [facility] TRIGLYCERIDE 2,377(H) <150 mg/dL 09/19/2023 9:50 PM CDT [facility] Blood Venipuncture / Unknown 09/19/2023 8:56 PM CDT 09/19/2023 9:05 PM CDT Narrative [facility] - 09/19/2023 9:50 PM CDT TRIGLYCERIDES ? mg/dL Normal ?< 150 Borderline High ?150 - 199 High ? 200 - 499 Very High ? >= 500 Based on AHA/NCEP Guidelines. Herlinda Mederos DO CHEMISTRY ORDERABLES Performing Organization Address [facility]/ZIP Co de Phone Number [facility]# [id number] [address] [place] [address] * (ABNORMAL) POC GLUCOSE (09/19/2023 8:49 PM CDT) GLUCOSE POC 151(H) 74 - 99 mg/dL 09/19/2023 8:[address] [facility] LABORATORY SERVICES - [facility] SPECIMEN SOURCE, GLUCOSE POC Whole Blood 09/19/2023 8:49 [address] [facility] LABORATORY SERVICES - [facility] Blood, whole 09/19/2023 8:49 PM CDT 09/19/2023 9:10 PM CDT Herlinda Mederos DO POINT OF CARE TESTIN G Performing Organization Address [facility]/ZIP Co de Phone Number [facility] CLIA# [id number] [address] [place] [address] * (ABNORMAL) POC GLUCOSE (09/19/2023 7:32 PM CDT) GLUCOSE POC 189(H) 74 - 99 mg/dL 09/19/2023 7:[address] [facility] LABORATORY [facility] SPECIMEN SOURCE, GLUCOSE POC Whole Blood 09/19/2023 7:32 PM CDT [facility] SERVICES [facility] Blood, whole 09/19/2023 7:32 PM CDT 09/19/2023 7:46 PM CDT Herlinda Mederos DO POINT OF CARE TESTIN G Performing Organization Address [facility] [place]/ZIP Co de Phone Number [facility] CLIA# [id number] [address] [place] [address] * (ABNORMAL) POC GLUCOSE (09/19/2023 5:52 PM CDT) GLUCOSE POC 143(H) 74 - 99 mg/dL 09/19/2023 5:52 PM CDT [facility] SPECIMEN SOURCE, GLUCOSE POC Whole Blood 09/19/2023 5:52 PM CDT [facility] Blood, whole 09/19/2023 5:52 PM CDT 09/19/2023 6:07 PM CDT Herlinda Mederos DO POINT OF CARE TESTIN G [facility]# [id number] [address] [place] [address] * CT ABDOMEN PELVIS W CONTRAST (09/19/2023 12:01 PM CDT) Anatomical Region Laterality Modality Abdomen Computed Tomogra phy 09/19/2023 11:5 6 AM CDT Impressions 09/19/2023 12:59 PM CDT IMPRESSION: ?? No acute process in the abdomen or pelvis. DICTATION LOCATION: Location [address] [place] [address] Narrative 09/19/2023 12:59 PM CDT EXAMINATION: Computed tomography of the abdomen and pelvis with intravenous contrast DATE: 09/19/2023 12:01 PM HISTORY: Pancreatitis, acute, severe. Syncope and collapse; Other acute pancreatitis, unspecified complication status; Atherosclerosis of coronary artery, unspecified vessel or lesion type, unspecified whether angina present, unspecified whether [place] or transplanted heart; Chylomicronemia syndrome. ?? TECHNIQUE: [...] type, unspecified whether angina present, unspecified whether [place] or transplanted heart; Chylomicronemia syndrome. TECHNIQUE: Computed [...] in the abdomen or pelvis. DICTATION LOCATION: [address] Herlinda Mederos DO CT ORDERABLES * (ABNORMAL) POC GLUCOSE (09/19/2023 11:44 AM CDT) GLUCOSE POC 189(H) 74 - 99 mg/dL 09/19/2023 11:44 AM CDT [facility] SPECIMEN SOURCE, GLUCOSE POC Whole Blood 09/19/2023 11:44 AM CDT [facility] Blood, whole 09/19/2023 11:4 4 AM CDT 09/19/2023 9:05 PM CDT Herlinda Mederos DO POINT OF CARE TESTIN [facility] [facility] Viewpoints [facility] CLIA# [id number] [address] [place] [address] * TROPONIN 6 HR, 5TH GEN (09/19/2023 11:09 AM CDT) TROPONIN T, 6 HR 5TH GEN <6 <11 ng/L 09/19/2023 11:46 AM CDT [facility] Viewpoints [facility] Blood Venipuncture / Unknown 09/19/2023 11:09 AM CDT 09/19/2023 11:14 AM CDT Narrative [facility] LABORATORY [facility] - 09/19/2023 11:46 AM CDT Troponin Undetectable Unable to calculate delta. Delay in collection of timed specimen beyond recommended collection interval. Results must be interpreted in clinical context. Yojana Washington MD CHEMISTRY ORDERA BLES [facility] Viewpoints [facility] CLIA# [id number] [address] [place] [address] * LIPASE (09/19/2023 12:59 AM CDT) Pathologist [facility] LIPASE 40 13 - 60 U/L 09/19/2023 5:52 AM CDT [facility] Viewpoints [facility] Blood Venipuncture / Unknown 09/19/2023 12:59 AM CDT 09/19/2023 1:09 AM CDT Yojana Washington MD CHEMISTRY ORDERA BLES [facility] CLIA# [id number] [address] [place] [address] * (ABNORMAL) HDL CHOLESTEROL (09/19/2023 12:59 AM CDT) Pathologist [facility] HDL 16(L) 40 - 59 mg/dL 09/19/2023 5:52 AM CDT [facility] Viewpoints [facility] Blood Venipuncture / Unknown 09/19/2023 12:59 AM CDT 09/19/2023 1:09 AM CDT [facility] Viewpoints [facility] - 09/19/2023 5:52 AM CDT HDL CHOLESTEROL mg/dL Low ?<40 Normal ?40-59 Desirable ? >=60 Based on AHA/NCEP Guidelines. Yojana Washington MD CHEMISTRY ORDERA BLES Performing Organization Address [facility] de Phone Number [facility] Viewpoints [facility]# [id number] [address] [place] [address] * LDL CHOLESTEROL, DIRECT (09/19/2023 12:59 AM CDT) Pathologist [facility] LDL CHOLESTEROL, DIRECT 47 <100 mg/dL 09/19/2023 5:52 AM CDT [facility] Viewpoints [facility] Blood Venipuncture / Unknown 09/19/2023 12:59 AM CDT 09/19/2023 1:09 AM CDT [facility] Viewpoints [facility] - 09/19/2023 5:52 AM CDT [...] MD CHEMISTRY ORDERA BLES Performing Organization Address [facility] Co de Phone Number [facility] Viewpoints [facility]# [id number] [address] [place] [address] * (ABNORMAL) TRIGLYCERIDE (09/19/2023 12:59 AM CDT) TRIGLYCERIDE 3,544(H) <150 mg/dL 09/19/2023 6:07 AM CDT [facility] Blood Venipuncture / Unknown 09/19/2023 12:59 AM CDT 09/19/2023 1:09 AM CDT [facility] Viewpoints [facility] - 09/19/2023 6:07 AM CDT TRIGLYCERIDES ? mg/dL Normal ?< 150 Borderline High ?150 - 199 High ? 200 - 499 Very High ? >= 500 Based on AHA/NCEP Guidelines. Yojana Washington MD CHEMISTRY DAVID ZULUAGA Performing Organization Address [facility] de Phone Number [facility] Viewpoints [facility]# [id number] [address] [place] [address] * (ABNORMAL) CHOLESTEROL TOTAL (09/19/2023 12:59 AM CDT) CHOLESTEROL 470(H) <200 mg/dL 09/19/2023 5:52 AM CDT [facility] Viewpoints [facility] Blood Venipuncture / Unknown 09/19/2023 12:59 AM CDT 09/19/2023 1:09 AM CDT [facility] Viewpoints [facility] - 09/19/2023 5:52 AM CDT TOTAL CHOLESTEROL ?mg/dL Desirable ? < 200 Borderline High ? 200 - 239 High ?>= 240 Based on AHA/NCEP Guidelines. Yojana Washington MD CHEMISTRY DAVID ZULUAGA Performing Organization Address [facility]/ZIP Co de Phone Number [email or web address] [facility]JE[facility]# [id number] [address] [place] [address] * TROPONIN 2 HR, 5TH GEN (09/19/2023 12:59 AM CDT) TROPONIN T, 2 HR 5TH GEN <6 <=10 ng/L 09/19/2023 1:42 AM CDT [employer] [facility]ATORY SERVICES - [facility] Blood Venipuncture / Unknown 09/19/2023 12:59 AM CDT 09/19/2023 1:09 AM CDT Narrative [facility] LABORATORY SERVICES - [facility] - 09/19/2023 1:42 AM CDT Troponin Undetectable Delay in collection of timed specimen beyond recommended collection interval. Results must be interpreted in clinical context. Unable to calculate delta. Yojana Washington MD CHEMISTRY ORDERA [facility] Viewpoints [facility]# [id number] [address] [place] [address] * (ABNORMAL) URINALYSIS WITH REFLEX MICROSCOPIC (09/18/2023 10:51 PM CDT) COLOR UA Yellow Pale to Dark Yellow 09/18/2023 11:07 PM CDT [facility] - [facility] CLARITY UA Clear Clear 09/18/2023 11:07 PM T [facility] - [facility] SPECIFIC GRAVITY UA 1.026 1.003 - 1.035 09/18/2023 11:07 PM T [facility] - [facility] PH UA 5.0 5.0 - 8.0 09/18/2023 11:07 PM CDT [facility] - [facility] LEUKOCYTE ESTERASE UA Negative Negative 09/18/2023 11:07 PM T [facility] - [facility] NITRITE UA Negative Negative 09/18/2023 11:07 PM CDT [facility] - [facility] PROTEIN UA 1+(A) Negative 09/18/2023 11:07 PM CDT [facility] SERVICES - [facility] GLUCOSE UA 3+(A) Negative 09/18/2023 11:[address] [facility] LABORATORY SERVICES - [facility] KETONES UA Trace(A) Negative 09/18/2023 11:[address] [facility] LABORATORY SERVICES - [facility] UROBILINOGEN UA 2.0(A) <2.0 mg/dL 11:07 PM [address] [facility] LABORATORY SERVICES - [facility] BILIRUBIN UA Negative Negative 09/18/2023 11:[address] [facility] LABORATORY SERVICES - [facility] BLOOD UA Negative Negative 09/18/2023 11:[address] [facility] LABORATORY SERVICES - [facility] WBC UA 0-2 0 - 2 /hpf 09/18/2023 11:[address] [facility] LABORATORY SERVICES - [facility] RBC UA 0-2 0 - 2 /hpf 09/18/2023 11:[address] [facility] LABORATORY SERVICES - [facility] BACTERIA UA Negative Negative /hpf 09/18/2023 11:[address] [facility] LABORATORY SERVICES - [facility] EPITHELIAL CELLS, URINE 0-5 0 - 5 /hpf 09/18/2023 11:[address] [facility] LABORATORY SERVICES - [facility] Urine URINE SPECIMEN OBTAINED BY CLEAN CATCH PROCEDURE / Unknown Collection / Unknown 09/18/2023 10:51 PM CDT 09/18/2023 10:55 PM CDT Yojana Washington MD URINE ORDERABLES [facility]# [id number] [address] [place] [address] * XR CHEST PA OR AP 1 VW (09/18/2023 10:23 PM CDT) Anatomical Region Laterality Modality Chest Computed Radiogr aphy 09/18/2023 10:2 3 PM CDT Impressions 09/18/2023 10:40 PM CDT IMPRESSION: No convincing evidence of active disease. ?? DICTATION LOCATION: Location 1 - [facility] Narrative 09/18/2023 10:40 PM CDT PORTABLE [...] active disease. DICTATION LOCATION: Location 1 - [facility] Yojana Washington MD DIAGNOSTIC IMAGI NG ORDERABLES * (ABNORMAL) HEMOGLOBIN A1C (09/18/2023 10:18 PM CDT) HEMOGLOBIN A1C 9.7(H) <5.7 % 09/19/2023 10:59 AM CDT [facility] LABORATORY [facility] EST. AVG GLUCOSE, A1C 232 mg/dL 09/19/2023 10:59 AM CDT [facility] Blood Venipuncture / Unknown 09/18/2023 10:18 PM CDT 09/18/2023 10:26 PM CDT Narrative [facility] LABORATORY [facility] - 09/19/2023 10:59 AM CDT HGB A1C INTERPRETATION NORMAL: ? <5.7% PRE-DIABETES: 5.7 - 6.4% DIABETES: ? 6.5% OR GREATER Herlinda Mederos DO CHEMISTRY ORDERABLES [facility] CLIA# [id number] [address] [place] [address] * EXTRA TUBE (BLUE) (09/18/2023 10:18 PM CDT) Blood Venipuncture / Unknown 09/18/2023 10:18 PM CDT 09/18/2023 10:26 PM CDT Yojana Washington MD HEMATOLOGY ORDER OSVALDO [facility] LABORATORY SERVICES [facility] CLIA# [id number] [address] [place] [address] * (ABNORMAL) COMPREHENSIVE METABOLIC PANEL (09/18/2023 10:18 PM CDT) SODIUM 133(L) 136 - 145 mmol/L 09/18/2023 11:[address] [facility] LABORATORY SERVICES - [facility] POTASSIUM 4.1 3.5 - 5.0 mmol/L 09/18/2023 11:[address] [facility] LABORATORY SERVICES - [facility] Comment:Slightly hemolyzed. Result may be falsely elevated. CHLORIDE 94(L) 98 - 107 mmol/L 09/18/2023 11:[address] PM [address] [facility] LABORATORY SERVICES - [facility] CO2 23 22 - 29 mmol/L 09/18/2023 11:[address] PM [address] [facility] LABORATORY SERVICES - [facility] CALCIUM 10.2 8.6 - 10.2 mg/dL 09/18/2023 11:[address] PM [address] [facility] LABORATORY SERVICES - . [facility] BUN 19 6 - 20 mg/dL 09/18/2023 11:[address] [facility] LABORATORY SERVICES - . [facility] CREATININE 0.69 0.51 - 0.95 mg/dL 09/18/2023 11:[address] [facility] LABORATORY SERVICES - . [facility] GLUCOSE 173(H) 74 - 99 mg/dL 09/18/2023 11:[address] PM [address] [facility] LABORATORY SERVICES - [facility] TOTAL PROTEIN 8.1 6.7 - 8.6 g/dL 09/18/2023 11:[address] [facility] LABORATORY SERVICES - [facility] ALBUMIN 4.9 3.5 - 5.2 g/dL 09/18/2023 11:40 PM CDT [facility] BILIRUBIN TOTAL 0.2(L) 0.3 - 1.2 mg/dL 09/18/2023 11:40 PM T [facility] ALKALINE PHOSPHATASE 100 35 - 104 U/L 09/18/2023 11:40 PM T [facility] AST 16 <33 U/L 09/18/2023 11:40 PM T [facility] Comment: Hemolysis present. ??Result may be falsely elevated. Cleared of chylomicrons. ALT 20 <34 U/L 09/18/2023 11:40 PM T [facility] Comment:Cleared of chylomicr ons. GFR >60 >=60 mL/min/1.7 3 sq meter 09/18/2023 11:40 PM T [facility] Comment:eGFR calculated with 2020 CKD-EPI equation. Vegetarian diet, extremely high or low muscle mass, and may affect results. Cystatin C with Glomerular Filtration Rate is a suitable alternative for these patients. ANION GAP 16 8 - 16 mmol/L 09/18/2023 11:40 PM T [facility] Blood Venipuncture / Unknown 09/18/2023 10:18 PM CDT 09/18/2023 10:26 PM CDT Narrative [facility] - 09/18/2023 11:40 PM CDT Samples containing indocyanine green cause interferences on Total and/or Direct Bilirubin and must not be measured. Yojana Washington MD CHEMISTRY ORDERA BLES [facility] CLIA# [id number] [address] [facility] [address] [address] * (ABNORMAL) CBC WITH DIFFERENTIAL (09/18/2023 10:18 PM CDT) WBC 13.2(H) 4.0 - 9.8 K/uL 09/18/2023 10:31 PM CDT [facility]. KIMO RBC 5.29(H) 3.90 - 4.90 M/uL 09/18/2023 10:31 PM [facility] - [facility] HEMOGLOBIN 15.3(H) 11.8 - 14.8 g/dL 09/18/2023 10:31 PM [facility] - [facility] HEMATOCRIT 44.8(H) 35.5 - 44.0 % 09/18/2023 10:31 PM [facility]ATORY SERVICES - [facility] MCV 84.7 82.0 - 99.0 fL 09/18/2023 10:31 PM [facility] - [facility] MCH 28.9 27.2 - 32.6 pg 09/18/2023 10:31 PM [facility] - [facility] MCHC 34.2 31.5 - 35.5 g/dL 09/18/2023 10:31 PM [facility] - [facility] RDW 15.1(H) 11.5 - 14.5 % 09/18/2023 10:31 PM [facility] - [facility] RDW-STDEV 45.4 37.1 - 48.7 fL 09/18/2023 10:31 PM [facility] - [facility] PLATELETS 425(H) 140 - 350 K/uL 09/18/2023 10:31 PM [facility] - [facility] MPV 8.9(L) 9.3 - 12.4 fL 09/18/2023 10:31 PM [facility] - [facility] NEUTROPHILS 70 % 09/18/2023 10:31 PM [facility]ATORY SERVICES - . [facility] LYMPHOCYTES 24 % 09/18/2023 10:31 PM [facility] SERVICES - . [facility] MONOCYTES 4 % 09/18/2023 10:31 PM [facility] - . [facility] EOSINOPHILS 1 % 09/18/2023 10:31 PM [facility] SERVICES - . [facility] BASOPHILS 1 % 09/18/2023 10:31 PM [facility] SERVICES - . [facility] IMMATURE GRANULOCYTES 1 % 09/18/2023 10:31 PM [facility] SERVICES - . [facility] Comment:IG (Immature Granulo cyte) count includes Metamyelocytes, Myelocytes, and Promyelocytes NEUTROPHIL ABSOLUTE 9.19(H) 1.90 - 7.00 K/uL 09/18/2023 10:[address] [facility] LABORATORY [facility] - [facility] LYMPHOCYTE ABSOLUTE 3.22 0.70 - 4.50 K/uL 09/18/2023 10:[address] [facility] LABORATORY [facility] - [facility] MONOCYTE ABSOLUTE 0.56 0.10 - 1.30 K/uL 09/18/2023 10:31 [address] [facility] LABORATORY SERVICES - . [facility] EOSINOPHIL ABSOLUTE 0.09 0.00 - 0.70 K/uL 09/18/2023 10:31 PM [address] [facility] LABORATORY SERVICES - . [facility] BASOPHILS ABSOLUTE 0.06 0.00 - 0.20 K/uL 09/18/2023 10:[address] [facility] LABORATORY SERVICES - [facility] IMMATURE GRANULOCYTES ABSOLUTE 0.11(H) 0.00 - 0.03 K/uL 09/18/2023 10:[address] [facility] LABORATORY SERVICES - [facility] Blood Venipuncture / Unknown 09/18/2023 10:18 PM CDT 09/18/2023 10:26 PM CDT Yojana Washington MD HEMATOLOGY ORDER OSVALDO [facility]# [id number] [address] [place] [address] * TROPONIN BASELINE, 5TH GEN (09/18/2023 10:18 PM CDT) TROPONIN T, BASELINE 5TH GEN <6 <=10 ng/L 09/18/2023 10:[address] [facility] LABORATORY [facility] Blood Venipuncture / Unknown 09/18/2023 10:18 PM CDT 09/18/2023 10:26 PM CDT Narrative [facility] LABORATORY SERVICES - [facility] - 09/18/2023 10:51 PM CDT Troponin Undetectable Yojana Antonella Washington MD CHEMISTRY ORDERA BLES [facility]# [id number] [address] [place] [address] * EKG 12-LEAD (09/18/2023 9:01 PM CDT) 09/18/2023 9:01 PM CDT Narrative INTERFACE SYSTEM - 09/19/2023 6:40 AM CDT ? [facility] ? [address] [place] [address] ? Test Date: ?2023-09-18 Pat Name: ? CASANDRA SELAM ?Department: ?? 38 ?Room: ? H02 Gender: ? Female ? Bag Adjuster: ?? 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 Requested By: ? Order Number: [id number] ? [place] MD: ?? Kali Varela ? Measurements Intervals ?[place] ? Rate: ? 97 ? P: ?52 CO: ? 152 ?QRS: ?60 QRSD: ? 88 ? T: ?-3 QT: ? 347 ? QTc: ?441 ? Interpretive Statements Sinus rhythm Left atrial enlargement, consider biatrial enlargement Baseline wander in leads II, III Nonspecific T wave changes Electronically Signed On 09-19-2023 6:40:51 CDT by Kali Varela Procedure Note Kali Varela MD - 09/19/2023 [facility] [address] [place] [address] Test Date: 2023-09-18 Pat Name: CASANDRA DOSS Department: 38 Room: 2 Gender: Female Bag Adjuster: [email or web address] : 1975 Requested By: Order Number: [id number] [place] MD: Kali Varela Measurements Intervals [place] Rate: 97 P: 52 CO: 152 QRS: 60 QRSD: 88 T: -3 [...] type, unspecified whether angina present, unspecified whether [place] or transplanted heart Chylomicronemia syndrome Hyperchylomicronemia Acute [...] Given 09/20/2023 6:25 AM CDT 224 mcg yujzpx-zgrgilfk-cmbrget DR MAGUIRE) 36,000-114,000-180,000 unit per capsule 2 [...] 0524 (Given - Provider: Vicki Pride RN) gxfvym-egpnkxmq-fnwjhei DR (AMELIA) 36,000-114,000-180,000 unit per capsule 2 [...] documented as of this encounter Care Teams Production Honing Machine Operator Relationship Specialty Start Date End Date Guerrero Middleton PA-C PCP - General Physician Farm Assistant 02/13/18 documented as of this encounter
--- OUTSIDE RECORDS SUMMARY | 2024-05-03 21:48 | XMS_ITS | Encounter Summary ---
Author Organization [facility] Address [address] [place] [address] Care Team Providers Care Knocker Off Name Role Phone Guerrero Middleton PA-C Primary [...] week 08/21/2018 How often do you attend [facility] or zoroastrian services? Never 08/21/2018 Do you [...] [facility] [address] [place] [address] Marlys Mayer MD [address] [place] [address] documented as of this encounter Visit Diagnoses Not on filedocumented in this encounter Care Teams Knocker Off Relationship Specialty Start Date End Date Guerrero Middleton PA-C PCP - General Physician Export Documents Clerk 02/13/18 documented as of this encounter
--- OUTSIDE RECORDS SUMMARY | 2024-05-03 21:48 | XMS_ITS | Encounter Summary ---
Author Organization [facility] Address [address] [place] [address] Care Team Providers Care Charge Nurse Name Role Phone Guerrero Middleton PA-C [...] do you attend [facility] or baptist services? Never 08/21/2018 Do you [...] [facility] - [place] [address] [place] [address] Marlys Mayer MD [address] [place] [address] documented as of this encounter Visit Diagnoses Not on filedocumented in this encounter Care Teams Charge Nurse Relationship Specialty Start Date End Date Guerrero Middleton PA-C PCP - General Physician Contract Manager 02/13/18 documented as of this encounter
--- OUTSIDE RECORDS SUMMARY | 2024-05-03 21:48 | XMS_ITS | Encounter Summary ---
Author Organization [facility] Address [address] [place] [address] Care Team Providers Care Greenhouse Worker Name Role Phone Guerrero Middleton PA-C [...] week 08/21/2018 How often do you attend [facility] or samaritan services? Never 08/21/2018 Do [...] [facility] [place] [address] [place] [address] Marlys aMyer MD [address] [place] [address] documented as of this encounter Visit Diagnoses Not on filedocumented in this encounter Care Teams Greenhouse Worker Relationship Specialty Start Date End Date Guerrero Middleton PA-C PCP - General Physician Computer Support Specialist Instructor 02/13/18 documented as of this encounter
--- OUTSIDE RECORDS SUMMARY | 2024-05-03 21:48 | XMS_ITS | Encounter Summary ---
Author Organization [facility] Address [address] [place] [address] Care Team Providers Care Health Care Marketing Manager Name Role Phone Guerrero Middleton PA-C [...] 08/21/2018 How often do you attend [facility] or jewish services? Never 08/21/2018 Do you [...] [facility] [address] [place] [place] [address] Marlys Mayer MD [address] [place] [address] documented as of this encounter Visit Diagnoses Not on filedocumented in this encounter Care Teams Health Care Marketing Manager Relationship Specialty Start Date End Date Guerrero Middleton PA-C PCP - General Physician Uppers Edge Burnisher 02/13/18 documented as of this encounter
--- OUTSIDE RECORDS SUMMARY | 2024-05-03 21:49 | XMS_ITS | Encounter Summary ---
Author Organization [facility] Address [address] [place] [address] Care Team Providers Care Maintenance Equipment Operator Name Role Phone Guerrero Middleton PA-C Primary Care Provide r Encounter Details Date Type Department Care Team (Late st Contact Info) Description 07/04/2023 External Device Data STL ABSTRACTION Provider, Abstract [...] How often do you attend [facility] or synagogue services? Never 08/21/2018 Do you [...] [facility] - [facility] [address] [place] [address] Marlys aMyer MD [address] [place] [address] documented as of this encounter Visit Diagnoses Not on filedocumented in this encounter Care Teams Maintenance Equipment Operator Relationship Specialty Start Date End Date Guerrero Middleton PA-C PCP - General Physician Market Research Worker 02/13/18 documented as of this encounter
--- OUTSIDE RECORDS SUMMARY | 2024-05-03 21:49 | XMS_ITS | Encounter Summary ---
Author Organization [facility] Address [address]: Epic Prelude [place]T [place] [address] Care Team Providers Care Speech Instructor Name Role Phone Guerrero Middleton PA-C [...] you attend [facility] or roman catholic services? Never 08/21/2018 Do [...] [facility] [place] - [facility] [address] [place] [address] Marlys Mayer MD [address] [place] [address] documented as of this encounter Visit Diagnoses Not on filedocumented in this encounter Care Teams Speech Instructor Relationship Specialty Start Date End Date Guerrero Middleton PA-C PCP - General Physician Mine Utility Operator 02/13/18 documented as of this encounter
--- OUTSIDE RECORDS SUMMARY | 2024-05-03 21:49 | XMS_ITS | Encounter Summary ---
Author Organization [facility] Address [address] [place] [address] Care Team Providers Care Engineer Chief Name Role Phone Guerrero Middleton PA-C Primary Care Provide r Encounter Details Date Type Department Care Team (Late st Contact Info) Description 10/26/2021 Telephone [facility] [address] [phone] Nicole Rosas MD [address] [place] [address] Social History Tobacco Use Types [...] How often do you attend chur or roman catholic services? Never 08/21/2018 Do [...] [facility] [place] [id number] [place] [address] Marlys Mayer MD [address] [place] [address] documented as of this encounter Visit Diagnoses Not on filedocumented in this encounter Additional Health Concerns Infection Onset Date Last Indicated Resolved Time R/O GI Pathogen 09/19/2023 09/19/2023 09/21/2023 7 :33 AM CDT documented as of this encounter Care Teams Engineer Chief Relationship Specialty Start Date End Date Guerrero Middleton PA-C PCP - General Physician Pharmacy Scheduler 02/13/18 documented as of this encounter
--- OUTSIDE RECORDS SUMMARY | 2024-05-03 21:49 | XMS_ITS | Encounter Summary ---
Author Organization [facility] Address [address] [place] [address] Care Team Providers Care Wound Care Nurse Name Role Phone Guerrero Middleton PA-C [...] Tequila bowman Referred To Contact Emergency Medicine [facility] Emergency Dept [address] [place] [address] Referral ID Status Reason Start Date Expiration Date Visits Re quested Visits Authorized [id number] 1 1 Encounter Details Date Type Department Care Team (Latest Contact Info) Description 09/13/2021 4:22 PM CDT - 09/20/2021 6:56 PM CDT Hospital Encounter [facility] Med Surg ICU [facility] [address] [place] [address] Antwon Coyle MD [address] [place] [address] Trey Solorzano MD [address] [address] [place] [address] Erick Venegas MD [address] [facility] [address] [place] [address] Flores Morales MD [address] [place] [address] Suicide ideation Discharge Disposition: Home [...] 45 y.o. / female : 1975 CSN: [id number] Admission date: 09/13/2021 Discharge date: 09/20/2021 Admitting [...] stay in the ICU [facility] and conclusion was made for inpatient behavioral health therapy. Patient was also treated for hypertriglyceridemia with multiple plasma exchange sessions. Over time patient became medically clear to be switched to behavioral health however due to unavailability patient was treated for her behavioral health issues in the ICU. [facility] care of her . According to behavioral health patientwas extensively educated about compliance of medication, instruction for management treatment and or follow-up. Patient was provided education about condition and risk factor reduction. There was also discussion about bio/cycle/social aspects of patient's care. Neuro/Psych:? Suicidal Ideation with Plan 1. [facility] consulted- evaluated patient 2. Suicide watch- sitter [...] 1:1 sitter. ?? Mood Disorder/MDD/PTSD/anxiety 1. Continue BUSINESS PROCESS MANAGER citalopram 40 mg daily 2. Continue BUSINESS PROCESS MANAGER bupropion 150 mg twice daily 3. Continue BUSINESS PROCESS MANAGER trazodone 100 mg daily at bedtime ?? Pain control 1. Tylenol 2. Oxy 5 mg QID Cardiovascular/Fluids: ?? GAYATHRI Pulmonary:? GAYATHRI ?? Allergies 1. ceterizine?? GI/NUT:? 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 S/p Therapeutic Plasmapheresis x3 2. Dr[address] Riddle following the patient: s/p Plasma exchange x3 3. Continue BUSINESS PROCESS MANAGER Rosuvastatin 4. Continue BUSINESS PROCESS MANAGER Fenofibrate 5. Pain control PRN meds ? [...] ACHS ? Hypoglycemia pathway ?? Hypothyroidism 1. BUSINESS PROCESS MANAGER Synthroid Musculoskeletal/Skin: ?? GAYATHRI Nutritional status and [...] Jardiance TAKE 1 TABLET BY MOUTH EVERY WEATHERSEAL TECHNICIAN Signed by: Dr. Prudence Gates MD Quantity: 30 Tablet Refills: 0 fenofibrate 160 mg Tablet Commonly known as: LOFIBRA TAKE 1 TABLET BY MOUTH EVERY DAY Signed by: Dr. Prudence Gates MD Quantity: 90 Tablet Refills: 0 Fish Oil-Sparta-3 Fatty Acids 360-1,200 mg Capsule Take 2 [...] Your Medications These medications were sent to [facility]/pharmacy #[id number] - [place], [place] - [address] [facility] [address] [facility] [id number] ?? buPROPion HCL 450 mg Extended Release [...] feeling unsafe include: - Wang Hazel @ [facility] Zeynep Jerome - older adult social work specialist through [facility] My friends and family members who can help me if I need them include: - Pastor Ilir Piña Professionals/agencies I can contact if I need them include: [facility], [facility], Suicide Crisis I will make my environment safe by: having help monitor medications I will be regularly monitored and observed by: (Wang) National Suicide Prevention Lifeline # 9-154-447-TALK (5382) Crisis Text Line - Text ???Start?? to 394-338 Suicide Resources Suicide Prevention/Crisis Hotlines [facility]) - Behavioral Health Intake Department: [phone] [facility] Behavioral Health Intake Department is professionally staffed and offers free, confidential evaluations for anyone needing assistance with psychiatric and behavioral issues. Evaluations are available 24 hours a day, 7 days a week. [facility]: 735-006-ADLV (1773) [facility] is one of the nation's oldest suicide prevention and crisis hotlines. [facility] operates 24 hours a day Behavioral Health Response: 743.283.7105 or 989-356-8888 [facility] ([facility]) is a professionally staffed crisis response service. R provides expert behavioral health, crisis response, and outreach services /[facility] Suicide Hotline: 3-559-281-TALK (6843) Press 1 National Suicide Prevention Hotline: 1-057-087-TALK (8371) 19/11 hotline available to anyone in suicidal crisis or emotional distress. Call's will be routed tot nearest crisis center to you National Hope-Line Network: 9-607-ATSMQOZ (323-1688) 19/11 hotline that connects people who are depressed or suicidal, or those who are concerned about someone they love, automatically to a CONTRACT [facility] or [facility] certified crisis center. Crisis Text Line: Just send a text message to 745183 Live, trained crisis counselors available 19/11 via text message; You'll receive an automated text asking you what your crisis is and within minutes , a live trained crisis counselor will answer your text. They will help you out of a moment of crisis and work with you to create a plan to continue tofeel better. Referrals: [facility] [place] [facility]al [facility] [phone] [facility] [phone] [facility] @ [facility] [phone] Casandra Jones (1975) Casandra was seen in [facility]'s Behavioral Health Department on 09/19/21 by an Methods And Procedures Analyst. Per the consulting provider, it has been determined that patient is safe for discharge to home with safety plan established at this time. Patient currently lacks evidence of intent, plan and means to do harm and appears to be at baseline functioning. Patient has been given the following recommendations provided below Intensive Outpatient Program/Start Date: You have been referred to [facility] for registration and determination of In-Person or Virtual IOP services. Your will receive a phone call from IOP staff WITHIN 1-3 BUSINESS DAYS to discuss availability within the program (DOES NOT INCLUDE HOLIDAYS OR WEEKENDS) Please review the following information and if you have any questions you may contact the number listed. Intensive Outpatient Therapy [facility] Outpatient [facility] are currently providing a combination of virtual outpatient behavioral health services and in person outpatient programming. You will work with the Intensive Outpatient Program scheduling team to determine which program is the best fit for you. We have four locations: [place], [facility], and [facility]. If enrolled in [facility] virtual outpatient behavioral health therapy Programming is [...] commuting miles and at no extra cost. [facility] virtual services are secure and are supervised [...] will receive appointments for meeting with your Psychiatrist/COMMERCIAL PEST CONTROL TECHNICIAN and group times. CAN I SEE MY [...] or the care you receive, please contact: [phone] Patient and/or Guardian/POA has been given an opportunity to ask any questions and denied any further concerns. Patient and/or Guardian/POA has verbalized understanding to return to ED if condition worsens. Patient and/or Guardian/POA has verbalized understanding and agreement to utilize these resources. Should Casandra have any concerns for safety, Casandra is agreeable to yolanda a trusted family member or friend, current providers, [facility] at the number listed below, any of the crisis lines below, 911 or go to your nearest emergency department. SUICIDE PREVENTION AND CRISIS HOTLINES [facility] Health Intake & Access Center: [facility] Intake Department is professionally staffed and offers free, confidential evaluations for anyone needing assistance with psychiatric and behavioral issues. Evaluations are available 24 hours a day, 7 days a week. National Suicide Prevention Hotline: 2-337-918-TALK (1024) 19/11 hotline available to anyone in suicidal crisis or emotional distress. Calls will be routed to the nearest crisis center to you [facility] National Helpline - TTY: Disaster Distress Helpline - TTY: /[facility] Suicide Hotline: 0-889-660-TALK (6506) Press 1 [place] Hope-Line Network: 2-996-USNWXZO (734-2469) 19/11 hotline that connects people who are depressed or suicidal, or those who are concerned about someone they love, automatically to a [facility] or [facility] certified crisis center. Crisis Text Line: Just send a text message to 420264 Live, trained crisis counselors available 19/11 via text message; You'll receive an automated text asking you what your crisis is and within minutes , a live trained crisis counselor will answer your text. They will help you out of a moment of crisis and work with you to create a plan to continue tofeel better. [place] [address] Youth Hotlines Kids Under Twenty-One Crisis Help-line: 9-562-863-HAILY (9896) The Ted Crisis Help-line is a confidential telephone hotline available to any youth who may be in need of assistance, referral information, or crisis service. The TED help-line is one of a handful of hotline staffed exclusively by youth volunteers. LGBT Youth Suicide Hotline: 1-866 -U- CECILIA (948-5408) Kid Save: documented in this encounter Medications [...] tablet TAKE 1 TABLET BY MOUTH EVERY WEATHERSEAL TECHNICIAN 30 Tablet 06/01/2021 09/19/2023 Vascepa 1 gram [...] home. The pt's MD contacted the on-call COMMERCIAL PEST CONTROL TECHNICIAN with concerns that pt felt unsafe to be discharge and that she would not have the appropriate coping skills to help her until her IOP appt. I went to speak with pt on behalf of the COMMERCIAL PEST CONTROL TECHNICIAN. Pt denied any concern regarding safety. She stated that she did feel safe and ready to go home with her , who showed up while I was speaking with the patient. He and pt were adamant that they were leaving tonight. I told the COMMERCIAL PEST CONTROL TECHNICIAN this. He spoke to Dr. Nunez, who [...] Dr. Riddle reached out and let this COMMERCIAL PEST CONTROL TECHNICIAN know that while meeting with this patient, [...] patient's care. Coordination with: [] Nursing [] Bolt Maker [] Social Work [x]Physician []Family Patient is [...] scheduled plasmapharesis. TGL (09/17) 336. Statin, fenofibrate, Sparta-3. 6. Recurrent pancreatitis: no active inflammation on CT at this time. 7. Nutrition: low-fat diet. 8. Pseudohyponatremia due to chylomicronemia. 9. Insulin dependent DM: HbA1c 8.9% (07/2021); NPH bid with SSI. 10. Hypothyroidism: levothyroxine. 11. S/P hysterectomy: no urine hCG done. 12. Prophylaxis: DVT - enoxaparin; GI - PPI (BUSINESS PROCESS MANAGER med). Family Communication: patient & updated by [facility] resident. EM-2. Active Hospital Problems Diagnosis ??? [...] patient receives weekly plasmapheresis as outpatient through [facility] and follows up with Dr. Gates, insulin-dependent [...] Neuro/Psych: ?? Suicidal Ideation with Plan 1. [facility] consulted- evaluated patient 2. Suicide watch- sitter [...] 1:1 sitter. ?? Mood Disorder/MDD/PTSD/anxiety 1. Continue BUSINESS PROCESS MANAGER citalopram 40 mg daily 2. Continue BUSINESS PROCESS MANAGER bupropion 150 mg twice daily 3. Continue BUSINESS PROCESS MANAGER trazodone 100 mg daily at bedtime ?? Pain control 1. Tylenol 2. Oxy 5 mg QID Cardiovascular/Fluids: ?? GAYATHRI Pulmonary: ?? GAYATHRI ?? Allergies 1. ceterizine GI/NUT: ?? 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 S/p Therapeutic Plasmapheresis x3 2. Dr. Riddle following the patient: s/p Plasma exchange x3 3. Continue BUSINESS PROCESS MANAGER Rosuvastatin 4. Continue BUSINESS PROCESS MANAGER Fenofibrate 5. Pain control PRN meds ?? [...] ACHS ?? Hypoglycemia pathway ?? Hypothyroidism 1. BUSINESS PROCESS MANAGER Synthroid Musculoskeletal/Skin: ?? GAYATHRI DVT prophylaxis: Lovenox [...] Component Value Date PHARTERIAL 7.28 (L) 10/29/2018 [id number] 42 10/29/2018 PO2ART 97 10/29/2018 [id number] 20 (L) 10/29/2018 BASEEXCESS -6.4 (L) 10/29/2018 Central VBG: No results found for: PHMIXEDVEN, NZ7ZHIHZRU, IDC2KEXPUX, CNA4XUMGN, RV8TQMN Lactic acid: Lab Results Component Value Date/Time [...] added to pt's discharge. Nan Azul RN [id number] * Imelda Mclain MD - 09/19/2021 6:00 [...] patient's care. Coordination with: [] Nursing [] Bolt Maker [] Social Work [x]Physician []Family Patient is [...] on scheduled plasmapharesis. TGL (09/17) 336. Statin, fenofibrate,Sparta-3. 6. Recurrent pancreatitis - based on hx. [...] patient receives weekly plasmapheresis as outpatient through [facility] and follows up with Dr. Gates, insulin-dependent [...] 1:1 sitter. ?? Mood Disorder/MDD/PTSD/anxiety 1. Continue BUSINESS PROCESS MANAGER citalopram 40 mg daily 2. Continue BUSINESS PROCESS MANAGER bupropion 150 mg twice daily 3. Continue BUSINESS PROCESS MANAGER trazodone 100 mg daily at bedtime ?? [...] patient: s/p Plasma exchange x3 3. Continue BUSINESS PROCESS MANAGER Rosuvastatin 4. Continue BUSINESS PROCESS MANAGER Fenofibrate 5. Pain control PRN meds ?? [...] ACHS ?? Hypoglycemia pathway ?? Hypothyroidism 1. BUSINESS PROCESS MANAGER Synthroid Musculoskeletal/Skin: ?? GAYATHRI DVT prophylaxis: Lovenox [...] Component Value Date PHARTERIAL 7.28 (L) 10/29/2018 [id number] 42 10/29/2018 PO2ART 97 10/29/2018 [id number] 20 (L) 10/29/2018 BASEEXCESS -6.4 (L) 10/29/2018 Central VBG: No results found for: PHMIXEDVEN, CY3AIBNQGF, QIB5BZXLHJ, RNL5UUYDO, OI7YSGN Lactic acid: Lab Results Component Value Date/Time [...] with plan to admit to inpatient 5 [facility] once bed is available. 3) Pt [...] patient's care. Coordination with: [] Nursing [] Bolt Maker [] Social Work [x]Physician []Family Patient is tolerating the current medications and continues to consent to treatment plan. I discussed severity/complexity of her illness which is high. Roland Ballesteros, PMHNP Associated attestation - Ren Pal MD - 09/19/2021 5:32 AM CDT Patient information , assessment and plan discussed with COMMERCIAL PEST CONTROL TECHNICIAN. I agree with major elements of this note and plan. * Imelda Mclain MD - 09/18/2021 7:16 AM CDT CRITICAL CARE MEDICINE DAILY PROGRESS NOTE Reason for ICU admission: SI in setting of Hypertriglyceridemia ICU Timeline: Casandra Jones is a 45 y.o. female admitted 09/13/2021 with familial chylomicronemia, causing chronic recurrent pancreatitis 2-triglyceridemia, patient receives weekly plasmapheresis as outpatient through [facility] and follows up with Dr. Gates, insulin-dependent [...] Neuro/Psych: ?? Suicidal Ideation with Plan 1. [facility] consulted- evaluated patient 2. Suicide watch- sitter [...] 1:1 sitter. ?? Mood Disorder/MDD/PTSD/anxiety 1. Continue BUSINESS PROCESS MANAGER citalopram 40 mg daily 2. Continue BUSINESS PROCESS MANAGER bupropion 150 mg twice daily 3. Continue BUSINESS PROCESS MANAGER trazodone 100 mg daily at bedtime ?? [...] patient: s/p Plasma exchange x3 3. Continue BUSINESS PROCESS MANAGER Rosuvastatin 4. Continue BUSINESS PROCESS MANAGER Fenofibrate 5. Pain control PRN meds ?? [...] ACHS ?? Hypoglycemia pathway ?? Hypothyroidism 1. BUSINESS PROCESS MANAGER Synthroid Musculoskeletal/Skin: ?? GAYATHRI DVT prophylaxis: Lovenox [...] Component Value Date PHARTERIAL 7.28 (L) 10/29/2018 [id number] 42 10/29/2018 PO2ART 97 10/29/2018 [id number] 20 (L) 10/29/2018 BASEEXCESS -6.4 (L) 10/29/2018 Central VBG: No results found for: PHMIXEDVEN, AB5PRAUZZL, BWO9UZFYBM, INZ1APKUX, VO2RASX Lactic acid: Lab Results Component Value Date/Time LACTATE 0.7 12/27/2020 04:20 AM LACTATE 1.9 02/16/2020 12:45 AM LACTATE 1.8 02/02/2019 01:37 AM LACTATE 1.1 07/31/2018 03:20 AM Associated attestation - Flores Morales MD - 09/19/2021 7:14 AM CDT [facility] ATTENDING ATTESTATION I have discussed the history, physical findings, laboratory findings, AND assessment and plan with the resident and the patient's RN. Patient medically clear for discharge to inpatient behavioral facility. Await bed availability. * Lin Espinal DO - 09/17/2021 1:49 PM CDT Update patient's at bedside on patient's current status and care of plan. All questions/concerns addressed. Lin Espinal DO Thermodynamics Professor, PGY1 * Lin Espinal DO - 09/17/2021 7:11 AM CDT CRITICAL CARE MEDICINE DAILY PROGRESS NOTE Reason for ICU admission: SI in setting of Hypertriglyceridemia ICU Timeline: Casandra Jones is a 45 y.o. female admitted 09/13/2021 with familial chylomicronemia, causing chronic recurrent pancreatitis 2-triglyceridemia, patient receives weekly plasmapheresis as outpatient through [facility] and follows up with Dr. Gates, insulin-dependent [...] for DC ?? Mood Disorder/MDD/PTSD/anxiety 1. Continue BUSINESS PROCESS MANAGER citalopram 40 mg daily 2. Continue BUSINESS PROCESS MANAGER bupropion 150 mg twice daily 3. Continue BUSINESS PROCESS MANAGER trazodone 100 mg daily at bedtime ?? [...] be able to have PLEX. 3. Continue BUSINESS PROCESS MANAGER Rosuvastatin 4. Continue BUSINESS PROCESS MANAGER Fenofibrate 5. Pain control ?? H/o recurrent [...] ?? Obesity ?? PCOS ?? Hypothyroidism 1. BUSINESS PROCESS MANAGER Synthroid Musculoskeletal/Skin: ?? GAYATHRI DVT prophylaxis: Lovenox [...] Component Value Date PHARTERIAL 7.28 (L) 10/29/2018 [id number] 42 10/29/2018 PO2ART 97 10/29/2018 [id number] 20 (L) 10/29/2018 BASEEXCESS -6.4 (L) 10/29/2018 Central VBG: No results found for: PHMIXEDVEN, QR1UDGPAVU, CHP5RFXZRE, UCC0EDQVN, HV1UUFF Lactic acid: Lab Results Component Value Date/Time LACTATE 0.7 12/27/2020 04:20 AM LACTATE 1.9 02/16/2020 12:45 AM LACTATE 1.8 02/02/2019 01:37 AM LACTATE 1.1 07/31/2018 03:20 AM * Anahi Bass DO - 09/17/2021 7:06 AM CDT [facility] Fellow Note: Patient is medically cleared for [...] current course; patient [facility] to [facility]. 3. Per discussion with Dr. Mayer, outpatient [...] remains in place. ? Phoenix Riddle MD [facility], therapeutic apheresis service [phone] * Imelda Mclain MD - 09/16/2021 10:46 AM CDT CRITICAL CARE MEDICINE DAILY PROGRESS NOTE Reason for ICU admission: SI in setting of Hypertriglyceridemia ICU Timeline: Casandra Jones is a 45 y.o. female admitted 09/13/2021 with familial chylomicronemia, causing chronic recurrent pancreatitis 2-triglyceridemia, patient receives weekly plasmapheresis as outpatient through [facility] and follows up with Dr. Gates, insulin-dependent [...] inpatient treatment ?? Mood Disorder/MDD/PTSD/anxiety 1. Continue BUSINESS PROCESS MANAGER citalopram 40 mg daily 2. Continue BUSINESS PROCESS MANAGER bupropion 150 mg twice daily 3. Continue BUSINESS PROCESS MANAGER trazodone 100 mg daily at bedtime 4. [...] with 2 units of FFP. 4. Continue BUSINESS PROCESS MANAGER Rosuvastatin 5. Continue BUSINESS PROCESS MANAGER Fenofibrate 6. Pain control ?? H/o recurrent [...] ?? Obesity ?? PCOS ?? Hypothyroidism 1. BUSINESS PROCESS MANAGER Synthroid Musculoskeletal/Skin: ?? GAYATHRI DVT prophylaxis: Lovenox [...] Component Value Date PHARTERIAL 7.28 (L) 10/29/2018 [id number] 42 10/29/2018 PO2ART 97 10/29/2018 [id number] 20 (L) 10/29/2018 BASEEXCESS -6.4 (L) 10/29/2018 Central VBG: No results found for: PHMIXEDVEN, PB1RSCYPMD, ZXY3RRSLZB, JAU1NFMKV, QD8FEJR Lactic acid: Lab Results Component Value Date/Time LACTATE 0.7 12/27/2020 04:20 AM LACTATE 1.9 02/16/2020 12:45 AM LACTATE 1.8 02/02/2019 01:37 AM LACTATE 1.1 07/31/2018 03:20 AM * Erick Venegas MD - 09/16/2021 10:09 AM CDT CCM ATTENDING Action Items for Hospitalist and/or PCP to follow - Endocrine consult - Dr Gates (follows her outpatient) Please consider this note in addition to the Resident/Fellow/COMMERCIAL PEST CONTROL TECHNICIAN/PAs note from today (as applicable). I have discussed the history, physical findings, laboratory findings, AND assessment and plan withthe resident/Fellow/COMMERCIAL PEST CONTROL TECHNICIAN/PA and the patients RN and RT as [...] inhibitor Family Communication: patient updated Prognosis Guarded oil heaterman EM 3 Active Hospital Problems Diagnosis ??? [...] throughout the procedure. ?? Phoenix Riddle MD [facility], therapeutic apheresis service [phone] * Sharri Juarez RN - 09/15/2021 3:09 [...] consider this note in addition to the Resident/Fellow/COMMERCIAL PEST CONTROL TECHNICIAN/PAs note from today (as applicable). I have discussed the history, physical findings, laboratory findings, AND assessment and plan withthe resident/Fellow/COMMERCIAL PEST CONTROL TECHNICIAN/PA and the patients RN and RT as [...] inhibitor Family Communication: patient updated Prognosis Guarded skilled nursing EM 3 Active Hospital Problems Diagnosis ??? [...] patient receives weekly plasmapheresis as outpatient through [facility] and follows up with Dr. Gates, insulin-dependent [...] Neuro/Psych: ?? Suicidal Ideation with Plan 1. [facility] consulted- evaluated patient 2. Suicide watch- sitter 3. Psych recommends inpatient treatment ?? Mood Disorder/MDD/PTSD/anxiety 1. Continue BUSINESS PROCESS MANAGER citalopram 40 mg daily 2. Continue BUSINESS PROCESS MANAGER bupropion 150 mg twice daily 3. Continue BUSINESS PROCESS MANAGER trazodone 100 mg daily at bedtime 4. [...] session of therapeutic Plasmapheresis today 4. Continue BUSINESS PROCESS MANAGER Rosuvastatin 5. Continue BUSINESS PROCESS MANAGER Fenofibrate 6. Blood bank consulted- Dr. Riddle [...] ?? Obesity ?? PCOS ?? Hypothyroidism 1. BUSINESS PROCESS MANAGER Synthroid Musculoskeletal/Skin: ?? GAYATHRI DVT prophylaxis: Lovenox [...] Component Value Date PHARTERIAL 7.28 (L) 10/29/2018 [id number] 42 10/29/2018 PO2ART 97 10/29/2018 [id number] 20 (L) 10/29/2018 BASEEXCESS -6.4 (L) 10/29/2018 Central VBG: No results found for: PHMIXEDVEN, WG1QGBRMTO, VQR8JFEXNU, ZTY1AXNSU, JJ4DFJO Lactic acid: Lab Results Component Value Date/Time [...] throughout the procedure. ?? Phoenix Riddle MD [facility], therapeutic apheresis service [phone] * Rosales Tapia RN - 09/14/2021 3:33 PM CDT Plasma exchange completed using the right and left bard ports for access and return with 5% albuminas replacement fluids for a 1.0 volume exchange. * Imelda Mclain MD - 09/14/2021 12:38 PM CDT I tried to reach Mr. José Miguel Peña at [phone] to update him on status of Mrs. Peña. He did not answer the phone, I will make another attempt in couple of hours to reach Mr. Peña to update him on the status of Mrs. James health as well as her care plan going forward. * Erick Venegas MD - 09/14/2021 9:12 AM CDT [facility] ATTENDING Action Items for Hospitalist and/or PCP to follow - Endocrine consult - Dr Gates Please consider this note in addition to the Resident/Fellow/COMMERCIAL PEST CONTROL TECHNICIAN/PAs note from today (as applicable). I have discussed the history, physical findings, laboratory findings, AND assessment and plan withthe resident/Fellow/COMMERCIAL PEST CONTROL TECHNICIAN/PA and the patients RN and RT as [...] inhibitor Family Communication: patient updated Prognosis Guarded skilled nursing Critical care time of 30 minutes was [...] patient receives weekly plasmapheresis as outpatient through [facility] and follows up with Dr. Gates, insulin-dependent [...] watch- sitter ?? Mood Disorder/MDD/PTSD/anxiety 1. Continue BUSINESS PROCESS MANAGER citalopram 40 mg daily 2. Continue BUSINESS PROCESS MANAGER bupropion 150 mg twice daily 3. Continue BUSINESS PROCESS MANAGER trazodone 100 mg daily at bedtime 4. [...] Dr. Mayer does not have privilaeges at [facility]. Called blood bank- patient receives plasmaphoresis under [...] ?? Obesity ?? PCOS ?? Hypothyroidism 1. BUSINESS PROCESS MANAGER Synthroid Musculoskeletal/Skin: ?? GAYATHRI ?? DVT prophylaxis: [...] Component Value Date PHARTERIAL 7.28 (L) 10/29/2018 [id number] 42 10/29/2018 PO2ART 97 10/29/2018 [id number] 20 (L) 10/29/2018 BASEEXCESS -6.4 (L) 10/29/2018 Central VBG: No results found for: PHMIXEDVEN, BT5BOKXKBX, FBW6ZBYOTE, UCN5HDHNP, HE1QRUN Lactic acid: Lab Results Component Value Date/Time [...] specialty surface use. 5 Is a medical associate present? no If yes, which one?: ??? [...] care consult/ostomy care consult was not initiated. [facility] Skin Care Injury Prevention and Treatment Protocol [facility] Approved by: [facility] - Medical Executive Committee Approval Date: 05/14/2019 ORDERS ARE ENTERED ???PER PROTOCOL?? Nursing Orders: o When a patient age 18 years or older has: ? a documented Chin score of 18 or less or a Chin sub score of 2 or 1, ? [...] Evaluation Start Time: 17:53 Counselor Zone Phone: [phone] IDENTIFYING INFORMATION: Casandra Jones is a 45 y.o. female who presents for Behavioral Health Assessment and is located in ED (09/13/2021 5:53 PM) at [facility]. Is eval being completed virtually: No (09/13/211752). Patient presents With bridge operator (Pt's , José Miguel Jones - [phone]) (09/13/2021 5:53 PM) and was brought in by Family/Friend (09/13/2021 5:53 PM) with referral by Dr. Guerrero Middleton - (09/13/2021 5:53 PM). LEGAL CUSTODY/GUARDIANSHIP/DURABLE POWER OF BOX PRESS OPERATOR: Legal Status: Voluntary (09/13/211827) Legal Custody: Self (09/13/211752) SOURCES OF INFORMATION: Information obtained from: Patient;Spouse/significant other (09/13/211752) Thread Checker(s) : José Miguel Jones, pt's , (09/13/211827) [...] security?: Ken (09/13/211827) SPECIAL NEEDS AND SERVICES: Thread Checker(s) : José Miguel Jones, pt's , (09/13/211827) [...] things - anyone or anything (e.g., family, pentecostal, pain of ) - that stopped you [...] things - anyone or anything (e.g., family, pentecostal, pain of ) - that stopped you [...] things - anyone or anything (e.g., family, pentecostal, pain of ) - that stopped you [...] no - pt is being admitted to [facility]. Suicide Risk and Interventions: High (09/13/211808) Provider rationale for discharge if patient scored high risk on CSSR-s: Pt is being admitted to [facility]. ~END~ External Community Referrals ED Enhancement 19/11 Referral Line: [phone] [facility] Opioid Project: [phone] documented in this encounter H&P Notes * [...] of left power flow port 05/11/2019 ??? NV ESOPHAGOGASTRODUODENOSCOPY TRANSORAL DIAGNOSTIC N/A 03/08/2018 ESOPHAGOGASTRODUODENOSCOPY performed by Ceasar Vega MD at [facility] Family History Problem Relation [...] tablet TAKE 1 TABLET BY MOUTH EVERY WEATHERSEAL TECHNICIAN 30 Tablet 0 ??? Vascepa 1 gram [...] for Itching. 16 Tablet 0 ??? Fish Oil-Sparta-3 Fatty Acids 360-1,200 mg Capsule Take 2 Capsules by mouth 2 times daily with meals. ??? [employer] G6 Sensor Device Change sensor every 10 days. (9 sensors = 90 days) 9 Each 1 ??? [employer] G6 Transmitter Device Change transmitter every 90 [...] level: Not on file Occupational History Employer: [employer] Tobacco Use ??? Smoking status: Current Every [...] Component Value Date PHARTERIAL 7.28 (L) 10/29/2018 [id number] 42 10/29/2018 PO2ART 97 10/29/2018 [id number] 20 (L) 10/29/2018 BASEEXCESS -6.4 (L) 10/29/2018 Central VBG: No results found for: PHMIXEDVEN, YG1OSEZRTH, CHD7YNNSEB, VLE0ININF, HH4ICDV Lactic acid: Lab Results Component Value Date/Time [...] CDTAssociated Order(s): IP CONSULT TO PSYCHIATRY - [facility] Patient's Name: Casandra Jones ADMISSION DATE: 09/13/2021 [...] of left power flow port 05/11/2019 ??? NV ESOPHAGOGASTRODUODENOSCOPY TRANSORAL DIAGNOSTIC N/A 03/08/2018 ESOPHAGOGASTRODUODENOSCOPY performed by Ceasar Vega MD at [facility] CURRENT MEDICATIONS: Facility-Administered Medications [...] BEFORE breakfast Imelda Mclain MD 40 mgat 09/17/21 0822 ??? [...] level: Not on file Occupational History Employer: [employer] Tobacco Use ??? Smoking status: Current Every [...] on 09/13/21 with no changes noted. Diagnosis: Normangee I: MDD, recurrent, severe, without psychosis. Unspecified anxiety. Normangee II:None Normangee III: Past Medical History: Diagnosis Date ??? [...] and/or coordination of care. Thanks for Consult. Jaida Wright DNP This note was generated with [employer] voice recognition software and may contain senior data modeler errors Associated attestation - Ren Pal MD [...] of left power flow port 05/11/2019 ??? NV ESOPHAGOGASTRODUODENOSCOPY TRANSORAL DIAGNOSTIC N/A 03/08/2018 ESOPHAGOGASTRODUODENOSCOPY performed by Ceasar Vega MD at [facility] Home Medications: Patient's Home [...] Stable This note has been prepared by Andie Thompson acting as a scribe for Dr. [...] Miscellaneous Notes * Care Plan - Christina Maldonado RN - 09/18/2021 7:56 AM CDT Patient admitted to 4/ . Clinical chart review of pt completed. Will hold on formal Care Management initial assessment until appropriate to determine DC needs. Care Management will continue to clinically review and follow with medical team and be available as needed. Kasia following. Christina Maldonado, RN, MSN,[facility] Treatment Plant Operator Kasia [facility] [phone] (cell) [phone] (office) Problem: Discharge Planning Goal: Identify discharge [...] PROGRESSING TOWARD GOAL Day 1 - Current ([place] [facility]: Adult and Obstetrics) Patient, family, or [...] Description: Outcome: Progressing Problem: Suicide Risk/Attempt Goal: Senior Living: Reduction of suicidal thoughts and absence of [...] because of medications (i.e. 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 Neuro: Q4 checks maintained, A&Ox4, FC / [...] issues to the bathroom (with supervision), BM BUSINESS PROCESS MANAGER - refuses bowel regimen - patient educated, AC/HS Accu checks with sliding scale Skin: No skin issues Sleep Evaluation: Sleeping between care - CAM ICU Negative Medication titrations/Procedures/Labs/Diagnostic Tests: Transfer to [facility] pending triglyceride levels Patient Goals Not Met: [...] Outcome: Not Met Day 1 - Current ([place] [facility]: Adult and Obstetrics) Patient, family, or [...] Description: Outcome: Progressing Problem: Suicide Risk/Attempt Goal: Senior Living: Reduction of suicidal thoughts and absence of [...] because of medications (i.e. - BP meds, CV/BRAILLE CODER meds, seizure meds, diuretics, pain meds, psych [...] Verbalized relief, Appeared content Living Situation/Functional Level BUSINESS PROCESS MANAGER: Pt lives with and son in a [...] section of the medical chart. Zone #: [phone] On weekends--please call [phone] * Therapy Evaluation - Ligia Retana Physical [...] content, Agrees to continue Living Situation/Functional Level BUSINESS PROCESS MANAGER: Pt lives with and son in a [...] section of the medical chart. Zone #: [phone] On weekends--please call [phone] * Care Plan - Ligia Nash RN - 09/14/2021 6:45 PM CDT End of Shift Note: [phone] Neuro: A&Ox4; c/o pain this AM in [...] evaluation when patient is ready to participate. #[id number] * Therapy Evaluation - Fadia Gonzalez, Occupational [...] IMS CT MRI Medication and Flush Protocol [facility] Approved by: [facility] - Medical Executive Committee Approval Date: 07/13/2021 ORDERS ARE ENTERED ???PER PROTOCOL?? Enter the protocol in the patient's electronic health record using smart[employer] Informaticsrase: .imagingctmriprotocol Communication Orders: o For ordered imaging [...] oral. May use nasoenteric tube if needed. [place] to 3 months Administer up to 90mL [...] 240mg/ml oral solution age appropriate guidelines ? [place] ? Administer 45mL of diluted Iohexol oral [...] than 55kg and confirm dose with radiologist. [place] to 15 years old Administer 2.2mL/kg (to [...] of NSF cases: o Gadodiamide (Omniscan?? - [place]) o Gadopentetate dimeglumine (Magnevist?? - [employer]acks) o Gadoversetamide (OptiMARK?? - Guerbet) Group II: Agents associated with few, if any, unconfounded cases of NSF: o Gadobenate dimeglumine (MultiHance?? - [employer]ell[employer]) o Gadobutrol (Gadavist?? - [employer]; Gadovist in many countries) o Gadoteric acid (Dotarem?? - Guerbet, Clariscan - [place]) Gadoteridol (ProHance?? - [employer]) Group III: Agents for which data remains limited regarding NSF risk, but for which few, if any unconfounded cases of NSF have been reported: Gadoxetate disodium (Eovist - [employer]ale Snacks; Primovist in many countries) documented in this encounter Plan of Treatment Upcoming Encounters Date Type Department Care Team (Late st Contact Info) Description 09/14/2024 3:00 PM CDT Office Visit [facility] Heart and Vascular - [facility] [address] [place] [address] Marlys Mayer MD [address] [place] [address] documented as of this encounter Procedures Procedure [...] - 99 mg/dL 09/20/2021 12:51 PM CDT [facility] LABORATORY [facility] SPECIMEN SOURCE, GLUCOSE POC Whole Blood 09/20/2021 12:51 PM CDT [facility] LABORATORY [facility] Blood, whole 09/20/2021 12:5 1 PM CDT 09/20/2021 12:58 PM CDT Flores Morales MD POINT OF CARE TEST ING [facility] LABORATORY [facility]# [id number] [address] [place] [address] * (ABNORMAL) POC GLUCOSE (09/20/2021 10:09 AM CDT) GLUCOSE POC 183(H) 74 - 99 mg/dL 09/20/2021 10:09 AM CDT [facility] LABORATORY [facility] SPECIMEN SOURCE, GLUCOSE POC Whole Blood 09/20/2021 10:09 AM CDT [facility] LABORATORY [facility] Blood, whole 09/20/2021 10:0 9 AM CDT 09/20/2021 10:17 AM CDT Flores Morales MD POINT OF CARE TEST ING Performing Organization Address [facility] Co de Phone Number [facility] [employer] [facility]# [id number] [address] [place] [address] * (ABNORMAL) POC GLUCOSE (09/19/2021 8:33 PM CDT) GLUCOSE POC 171(H) 74 - 99 mg/dL 09/19/2021 8:33 PM CDT [facility] LABORATORY SERVICES [facility] SPECIMEN SOURCE, GLUCOSE POC Whole Blood 09/19/2021 8:[address] [facility] COMMENT, GLU POC Notified RN/MD 09/19/2021 8:33 PM CDT [facility] LABORATORY SERVICES [facility] Blood, whole 09/19/2021 8:33 PM CDT 09/19/2021 8:53 PM CDT Flores Morales MD POINT OF CARE TEST ING Performing Organization Address [facility] Co de Phone Number [facility] [employer] [facility]# [id number] [address] [place] [address] * (ABNORMAL) POC GLUCOSE (09/19/2021 6:17 PM CDT) GLUCOSE POC 248(H) 74 - 99 mg/dL 09/19/2021 6:17 PM CDT [facility] LABORATORY SERVICES [facility] SPECIMEN SOURCE, GLUCOSE POC Whole Blood 09/19/2021 6:[address] [facility] COMMENT, GLU POC Notified RN/MD 09/19/2021 6:17 PM CDT [facility] LABORATORY SERVICES [facility] Blood, whole 09/19/2021 6:17 PM CDT 09/19/2021 6:33 PM CDT Flores Morales MD POINT OF CARE TEST ING Performing Organization Address City/[facility]/ZIP Co de Phone Number [facility] [employer] [facility]# [id number] [address] [place] [address] * (ABNORMAL) POC GLUCOSE (09/19/2021 12:53 PM CDT) GLUCOSE POC 167(H) 74 - 99 mg/dL 09/19/2021 12:53 PM CDT [facility] LABORATORY SERVICES [facility] SPECIMEN SOURCE, GLUCOSE POC Whole Blood 09/19/2021 12:53 PM CDT [facility] LABORATORY SERVICES [facility] COMMENT, GLU POC Notified RN/MD 09/19/2021 12:53 PM CDT [facility] LABORATORY [facility] Blood, whole 09/19/2021 12:5 3 PM CDT 09/19/2021 1:03 PM CDT Flores Morales MD POINT OF CARE TEST ING Performing Organization Address [facility]/ZIP Co de Phone Number [facility] [employer] [facility]# [id number] [address] [place] [address] * (ABNORMAL) POC GLUCOSE (09/19/2021 8:46 AM CDT) GLUCOSE POC 151(H) 74 - 99 mg/dL 09/19/2021 8:46 AM CDT [facility] LABORATORY [facility] SPECIMEN SOURCE, GLUCOSE POC Whole Blood 09/19/2021 8:46 AM CDT [facility] LABORATORY [facility] Blood, whole 09/19/2021 8:46 AM CDT 09/19/2021 9:01 AM CDT Flores Morales MD POINT OF CARE TEST ING Performing Organization Address City/[facility]/ZIP Co de Phone Number [facility] [employer] [facility]# [id number] [address] [place] [address] * (ABNORMAL) COMPREHENSIVE METABOLIC PANEL (09/19/2021 4:11 AM CDT) [facility] SODIUM 141 136 - 145 mmol/L 09/19/2021 4:44 AM [facility] hi5 LABORATORY SERVICES [facility] POTASSIUM 4.0 3.5 - 5.0 mmol/L 09/19/2021 4:44 AM [facility] [employer] SERVICES - [facility] CHLORIDE 102 98 - 107 mmol/L 09/19/2021 4:44 AM [facility] hi5 LABORATORY SERVICES - [facility] CO2 29 22 - 29 mmol/L 09/19/2021 4:44 AM [facility] [employer] [facility] - . [place] CALCIUM 8.8 8.6 - 10.2 mg/dL 09/19/2021 4:44 AM [facility] [employer] SERVICES - [facility] BUN 6 6 - 20 mg/dL 09/19/2021 4:44 AM [facility] [employer] [facility] - . [facility] CREATININE 0.63 0.51 - 0.95 mg/dL 09/19/2021 4:44 AM [facility] [employer] [facility] - . [place] GLUCOSE 148(H) 74 - 99 mg/dL 09/19/2021 4:44 AM [facility] [employer] [facility] - . [place] TOTAL PROTEIN 6.2(L) 6.7 - 8.6 g/dL 09/19/2021 4:44 AM [facility] [employer] [facility] - . [place] ALBUMIN 4.5 3.5 - 5.2 g/dL 09/19/2021 4:44 AM [facility] hi5 LABORATORY [facility] - . [place] BILIRUBIN TOTAL 0.2(L) 0.3 - 1.2 mg/dL 09/19/2021 4:44 AM [facility] hi5 LABORATORY SERVICES - . [facility] ALKALINE PHOSPHATASE 45 35 - 104 U/L 09/19/2021 4:44 AM [facility] [employer] [facility] - . [place] AST 26 <33 U/L 09/19/2021 4:44 AM [facility] [employer] SERVICES - . [place] ALT 18 <34 U/L 09/19/2021 4:44 AM [facility] [employer] [facility] - . [facility] GFR >60 >=60 mL/min/1.7 3 sq meter 09/19/2021 4:44 AM [facility] hi5 LABORATORY SERVICES - . [facility] Comment:eGFR calculated with 2020 CKD-EPI equation. Vegetarian diet, extremely high or low muscle mass, and may affect results. Cystatin C with Glomerular Filtration Rate is a suitable alternative for these patients. ANION GAP 10 8 - 16 mmol/L 09/19/2021 4:44 AM T [facility] Blood Venipuncture / Unknown 09/19/2021 4:11 AM CDT 09/19/2021 4:15 AM CDT [facility] - 09/19/2021 4:44 AM CDT Samples containing indocyanine green cause interferences on Total and/or Direct Bilirubin and must not be measured. Erick Venegas MD CHEMISTRY ORDERABL ES [facility] [employer] [facility]# [id number] [address] [facility] [place] [address] * (ABNORMAL) CBC WITH DIFFERENTIAL (09/19/2021 4:11 AM CDT) Pathologist [facility] WBC 5.2 4.0 - 9.8 K/uL 09/19/2021 4:22 AM [facility] LABORATORY [facility] RBC 3.34(L) 3.90 - 4.90 M/uL 09/19/2021 4:22 AM [facility] HEMOGLOBIN 9.9(L) 11.8 - 14.8 g/dL 09/19/2021 4:22 AM [facility] HEMATOCRIT 31.5(L) 35.5 - 44.0 % 09/19/2021 4:22 AM [facility] [employer] [facility] MCV 94.3 82.0 - 99.0 fL 09/19/2021 4:22 AM T [facility] LABORATORY [facility] MCH 29.6 27.2 - 32.6 pg 09/19/2021 4:22 AM [facility] MCHC 31.4(L) 31.5 - 35.5 g/dL 09/19/2021 4:22 AM [facility] LABORATORY [facility] RDW 15.9(H) 11.5 - 14.5 % 09/19/2021 4:22 AM [employer] [facility] LABORATORY SERVICES - [facility] RDW-STDEV 54.3(H) 37.1 - 48.7 fL 09/19/2021 4:22 AM [employer] [facility] LABORATORY SERVICES - [facility] PLATELETS 187 140 - 350 K/uL 09/19/2021 4:22 AM [employer] [facility] LABORATORY SERVICES - . [facility] MPV 9.6 9.3 - 12.4 fL 09/19/2021 4:22 AM [employer] [facility] LABORATORY SERVICES - . [facility] NEUTROPHILS 63 % 09/19/2021 4:22 AM [employer] [facility] LABORATORY SERVICES - . [facility] LYMPHOCYTES 29 % 09/19/2021 4:22 AM [employer] [facility] LABORATORY SERVICES - [facility] MONOCYTES 6 % 09/19/2021 4:22 AM [employer] [facility] LABORATORY SERVICES - [facility] EOSINOPHILS 1 % 09/19/2021 4:22 AM [facility] LABORATORY SERVICES - [facility] BASOPHILS 0 % 09/19/2021 4:22 AM [employer] [facility] LABORATORY SERVICES - . [facility] IMMATURE GRANULOCYTES 1 % 09/19/2021 4:22 AM [employer] [facility] LABORATORY SERVICES - [facility] Comment:IG (Immature Granulo cyte) count includes Metamyelocytes, Myelocytes, and Promyelocytes NEUTROPHIL ABSOLUTE 3.28 1.90 - 7.00 K/uL 09/19/2021 4:22 AM [facility] LABORATORY SERVICES - [facility] LYMPHOCYTE ABSOLUTE 1.52 0.70 - 4.50 K/uL 09/19/2021 4:22 AM [employer] [facility] LABORATORY SERVICES - . [facility] MONOCYTE ABSOLUTE 0.31 0.10 - 1.30 K/uL 09/19/2021 4:22 AM [employer] [facility] LABORATORY SERVICES - . [facility] EOSINOPHIL ABSOLUTE 0.06 0.00 - 0.70 K/uL 09/19/2021 4:22 AM [employer] [facility] LABORATORY SERVICES - . [facility] BASOPHILS ABSOLUTE 0.02 0.00 - 0.20 K/uL 09/19/2021 4:22 AM [facility] LABORATORY SERVICES - [facility] IMMATURE GRANULOCYTES ABSOLUTE 0.04(H) 0.00 - 0.03 K/uL 09/19/2021 4:22 AM [employer] [facility] LABORATORY SERVICES - [facility] Blood Venipuncture / Unknown 09/19/2021 4:11 AM CDT 09/19/2021 4:15 AM CDT Sharir Cruz COMMERCIAL PEST CONTROL TECHNICIAN HEMATOLOGY ORDERABLE S [facility] LABORATORY [facility] CLIA# [id number] [address] [place] [address] * (ABNORMAL) POC GLUCOSE (09/18/2021 9:56 PM CDT) GLUCOSE POC 170(H) 74 - 99 mg/dL 09/18/2021 9:56 PM CDT [facility] LABORATORY SERVICES [facility] SPECIMEN SOURCE, GLUCOSE POC Whole Blood 09/18/2021 9:56 PM CDT [facility] LABORATORY SERVICES [facility] Blood, whole 09/18/2021 9:56 PM CDT 09/18/2021 10:05 PM CDT Flores Morales MD POINT OF CARE TEST ING Performing Organization Address [facility]/ZIP Co de Phone Number [facility] [employer] [facility] CLAZ# [id number] [address] [place] [address] * (ABNORMAL) POC GLUCOSE (09/18/2021 5:55 PM CDT) GLUCOSE POC 144(H) 74 - 99 mg/dL 09/18/2021 5:55 PM CDT [facility] LABORATORY SERVICES [facility] SPECIMEN SOURCE, GLUCOSE POC Whole Blood 09/18/2021 5:55 PM CDT [facility] LABORATORY SERVICES [facility] Blood, whole 09/18/2021 5:55 PM CDT 09/18/2021 6:02 PM CDT Flores Morales MD POINT OF CARE TEST ING [facility] LABORATORY [facility] CLIA# [id number] [address] [place] [address] * (ABNORMAL) POC GLUCOSE (09/18/2021 1:22 PM CDT) GLUCOSE POC 218(H) 74 - 99 mg/dL 09/18/2021 1:22 PM CDT [facility] LABORATORY [facility] SPECIMEN SOURCE, GLUCOSE POC Whole Blood 09/18/2021 1:22 PM CDT [facility] LABORATORY SERVICES [facility] Blood, whole 09/18/2021 1:22 PM CDT 09/18/2021 1:30 PM CDT Flores Morales MD POINT OF CARE TEST ING Performing Organization Address [facility] Co de Phone Number [facility] [employer] [facility] CLIA# [id number] [address] [place] [address] * (ABNORMAL) POC GLUCOSE (09/18/2021 9:42 AM CDT) [facility] GLUCOSE POC 180(H) 74 - 99 mg/dL 09/18/2021 9:42 AM CDT [facility] LABORATORY [facility] - [facility] SPECIMEN SOURCE, GLUCOSE POC Whole Blood 09/18/2021 9:42 AM CDT [facility] LABORATORY [facility] Blood, whole 09/18/2021 9:42 AM CDT 09/18/2021 10:23 AM CDT Flores Morales MD POINT OF CARE TEST ING Performing Organization Address [facility]/ZIP Co de Phone Number [facility] [employer] [facility] CLIA# [id number] [address] [place] [address] * (ABNORMAL) COMPREHENSIVE METABOLIC PANEL (09/18/2021 5:31 AM CDT) Pathologist [facility] SODIUM 141 136 - 145 mmol/L 09/18/2021 6:38 AM CDT [facility] LABORATORY SERVICES [facility] POTASSIUM 3.7 3.5 - 5.0 mmol/L 09/18/2021 6:38 AM [facility] hi5 LABORATORY [facility] - . [facility] CHLORIDE 102 98 - 107 mmol/L 09/18/2021 6:38 AM [facility] hi5 LABORATORY [facility] - . [place] CO2 29 22 - 29 mmol/L 09/18/2021 6:38 AM [facility] hi5 LABORATORY [facility] - . [facility] CALCIUM 8.9 8.6 - 10.2 mg/dL 09/18/2021 6:38 AM [facility] hi5 LABORATORY [facility] - . [facility] BUN 6 6 - 20 mg/dL 09/18/2021 6:38 AM [facility] [employer] [facility] - . [facility] CREATININE 0.63 0.51 - 0.95 mg/dL 09/18/2021 6:38 AM [facility] teextee [facility] GLUCOSE 221(H) 74 - 99 mg/dL 09/18/2021 6:38 AM [facility] hi5 LABORATORY [facility] TOTAL PROTEIN 5.9(L) 6.7 - 8.6 g/dL 09/18/2021 6:38 AM [facility] teextee [facility] ALBUMIN 4.5 3.5 - 5.2 g/dL 09/18/2021 6:38 AM [facility] hi5 LABORATORY [facility] BILIRUBIN TOTAL 0.2(L) 0.3 - 1.2 mg/dL 09/18/2021 6:38 AM [facility] hi5 LABORATORY [facility] ALKALINE PHOSPHATASE 40 35 - 104 U/L 09/18/2021 6:38 AM [facility] hi5 LABORATORY [facility] AST 15 <33 U/L 09/18/2021 6:38 AM [employer] [facility] ALT 10 <34 U/L 09/18/2021 6:38 AM [facility] GFR >60 >=60 mL/min/1.7 3 sq meter 09/18/2021 6:38 AM [facility] [employer] [facility] Comment:eGFR calculated with 2020 CKD-EPI equation. Vegetarian diet, extremely high or low muscle mass, and may affect results. Cystatin C with Glomerular Filtration Rate is a suitable alternative for these patients. ANION GAP 10 8 - 16 mmol/L 09/18/2021 6:38 AM [facility] Blood Venipuncture / Unknown 09/18/2021 5:31 AM CDT 09/18/2021 5:53 AM CDT [facility] - 09/18/2021 6:38 AM CDT Samples containing indocyanine green cause interferences on Total and/or Direct Bilirubin and must not be measured. Erick Venegas MD CHEMISTRY ORDERABL ES [facility] CLIA# [id number] [address] [facility] [place] [address] * (ABNORMAL) CBC WITH DIFFERENTIAL (09/18/2021 5:31 AM CDT) [facility] WBC 5.1 4.0 - 9.8 K/uL 09/18/2021 6:13 AM [facility] RBC 3.29(L) 3.90 - 4.90 M/uL 09/18/2021 6:13 AM [facility] HEMOGLOBIN 9.6(L) 11.8 - 14.8 g/dL 09/18/2021 6:13 AM [facility] HEMATOCRIT 31.5(L) 35.5 - 44.0 % 09/18/2021 6:13 AM [facility] MCV 95.7 82.0 - 99.0 fL 09/18/2021 6:13 AM [facility] MCH 29.2 27.2 - 32.6 pg 09/18/2021 6:13 AM [facility] [employer] [facility] MCHC 30.5(L) 31.5 - 35.5 g/dL 09/18/2021 6:13 AM [facility] RDW 16.0(H) 11.5 - 14.5 % 09/18/2021 6:13 AM [facility] [employer] [facility] RDW-STDEV 57.1(H) 37.1 - 48.7 fL 09/18/2021 6:13 AM CDT [facility]5 LAB[facility]AT[facility] PLATELETS 187 140 - 350 K/uL 09/18/2021 6:13 AM CDT [facility] MPV 9.8 9.3 - 12.4 fL 09/18/2021 6:13 AM CDT [facility] NEUTROPHILS 60 % 09/18/2021 6:13 AM CDT [facility] LYMPHOCYTES 32 % 09/18/2021 6:13 AM CDT [facility] MONOCYTES 6 % 09/18/2021 6:13 AM CDT [facility] EOSINOPHILS 1 % 09/18/2021 6:13 AM CDT [facility] SERVICES - [facility] BASOPHILS 0 % 09/18/2021 6:13 AM CDT [facility] IMMATURE GRANULOCYTES 1 % 09/18/2021 6:13 AM T [facility] Comment:IG (Immature Granulo cyte) count includes Metamyelocytes, Myelocytes, and Promyelocytes NEUTROPHIL ABSOLUTE 3.06 1.90 - 7.00 K/uL 09/18/2021 6:13 AM CDT [facility] LYMPHOCYTE ABSOLUTE 1.62 0.70 - 4.50 K/uL 09/18/2021 6:13 AM CDT [facility]5 [facility] MONOCYTE ABSOLUTE 0.28 0.10 - 1.30 K/uL 09/18/2021 6:13 AM T hi5 [facility] EOSINOPHIL ABSOLUTE 0.07 0.00 - 0.70 K/uL 09/18/2021 6:13 AM T hi5 [facility] BASOPHILS ABSOLUTE 0.01 0.00 - 0.20 K/uL 09/18/2021 6:13 AM T [facility]5 [facility] IMMATURE GRANULOCYTES ABSOLUTE 0.03 0.00 - 0.03 K/uL 09/18/2021 6:13 AM T [facility]5 [facility] Blood Venipuncture / Unknown 09/18/2021 5:31 AM CDT 09/18/2021 5:53 AM CDT Sharri Cruz COMMERCIAL PEST CONTROL TECHNICIAN HEMATOLOGY ORDERABLE S Performing Organization Address [facility]/ZIP Co de Phone Number [facility] CLIA# [id number] [address] [place] [address] * (ABNORMAL) POC GLUCOSE (09/18/2021 2:08 AM CDT) GLUCOSE POC 217(H) 74 - 99 mg/dL 09/18/2021 2:08 AM CDT [facility] LABORATORY SERVICES [facility] SPECIMEN SOURCE, GLUCOSE POC Whole Blood 09/18/2021 2:08 AM CDT [facility] LABORATORY SERVICES [facility] Blood, whole 09/18/2021 2:08 AM CDT 09/18/2021 2:18 AM CDT Erick Venegas MD POINT OF CARE TEST ING Performing Organization Address [facility]/ZIP Co de Phone Number [facility] CLIA# [id number] [address] [place] [address] * (ABNORMAL) POC GLUCOSE (09/17/2021 10:47 PM CDT) GLUCOSE POC 250(H) 74 - 99 mg/dL 09/17/2021 10:47 PM CDT [facility] LABORATORY [facility] SPECIMEN SOURCE, GLUCOSE POC Whole Blood 09/17/2021 10:47 PM CDT [facility] LABORATORY SERVICES [facility] COMMENT, GLU POC Notified RN/MD 09/17/2021 10:47 PM CDT [facility] LABORATORY SERVICES [facility] Blood, whole 09/17/2021 10:4 7 PM CDT 09/17/2021 11:01 PM CDT Erick Venegas MD POINT OF CARE TEST ING Performing Organization Address [facility]/ZIP Co de Phone Number [facility] LABORATORY [facility] CLIA# [id number] [address] [place] [address] * (ABNORMAL) POC GLUCOSE (09/17/2021 6:33 PM CDT) GLUCOSE POC 208(H) 74 - 99 mg/dL 09/17/2021 6:33 PM CDT [facility] LABORATORY SERVICES - [facility] SPECIMEN SOURCE, GLUCOSE POC Whole Blood 09/17/2021 6:33 PM CDT [facility] LABORATORY SERVICES - [facility] COMMENT, GLU POC Notified RN/ 09/17/2021 6:33 PM CDT [facility] LABORATORY SERVICES [facility] Blood, whole 09/17/2021 6:33 PM CDT 09/17/2021 7:33 PM CDT Erick Venegas MD POINT OF CARE TEST ING Performing Organization Address [facility]/ZIP Co de Phone Number [facility] CLIA# [id number] [address] [place] [address] * (ABNORMAL) POC GLUCOSE (09/17/2021 12:39 PM CDT) GLUCOSE POC 245(H) 74 - 99 mg/dL 09/17/2021 12:39 PM CDT [facility] LABORATORY SERVICES - [facility] SPECIMEN SOURCE, GLUCOSE POC Whole Blood 09/17/2021 12:39 PM CDT [facility] LABORATORY SERVICES [facility] COMMENT, GLU POC Notified RN/ 09/17/2021 12:39 PM CDT [facility] LABORATORY SERVICES [facility] Blood, whole 09/17/2021 12:3 9 PM CDT 09/17/2021 1:34 PM CDT Erick Venegas MD POINT OF CARE TEST ING Performing Organization Address City/[facility]/ZIP Co de Phone Number [facility] CLIA# [id number] [address] [place] [address] * (ABNORMAL) POC GLUCOSE (09/17/2021 9:18 AM CDT) GLUCOSE POC 182(H) 74 - 99 mg/dL 09/17/2021 9:18 AM T [employer] LABORATORY SERVICES - [facility] SPECIMEN SOURCE, GLUCOSE POC Whole Blood 09/17/2021 9:18 AM T [employer] LABORATORY SERVICES - [facility] Blood, whole 09/17/2021 9:18 AM CDT 09/17/2021 9:26 AM CDT Erick Venegas MD POINT OF CARE TEST ING [facility] LABORATORY SERVICES - [facility] CLIA# [id number] [address] [facility] [place] [address] * (ABNORMAL) COMPREHENSIVE METABOLIC PANEL (09/17/2021 5:20 AM CDT) SODIUM 142 136 - 145 mmol/L 09/17/2021 6:26 AM [facility] hi5 LABORATORY SERVICES [facility] POTASSIUM 4.0 3.5 - 5.0 mmol/L 09/17/2021 6:26 AM [facility] [employer] LABORATORY SERVICES [facility] CHLORIDE 106 98 - 107 mmol/L 09/17/2021 6:26 AM T [employer] LABORATORY SERVICES - [facility] CO2 24 22 - 29 mmol/L 09/17/2021 6:26 AM [facility] LABORATORY SERVICES [facility] CALCIUM 8.7 8.6 - 10.2 mg/dL 09/17/2021 6:26 AM T [facility]5 LABORATORY SERVICES - [facility] BUN 5(L) 6 - 20 mg/dL 09/17/2021 6:26 AM T [employer] LABORATORY SERVICES - [facility] CREATININE 0.56 0.51 - 0.95 mg/dL 09/17/2021 6:26 AM T [employer] LAB[facility]ATORY SERVICES [facility] GLUCOSE 186(H) 74 - 99 mg/dL 09/17/2021 6:26 AM T [employer] LABORATORY SERVICES - . [facility] TOTAL PROTEIN 5.4(L) 6.7 - 8.6 g/dL 09/17/2021 6:26 AM [facility] hi5 LABORATORY SERVICES [facility] ALBUMIN 4.4 3.5 - 5.2 g/dL 09/17/2021 6:26 AM T [facility] BILIRUBIN TOTAL 0.3 0.3 - 1.2 mg/dL 09/17/2021 6:26 AM [facility] ALKALINE PHOSPHATASE 31(L) 35 - 104 U/L 09/17/2021 6:26 AM [facility] AST 10 <33 U/L 09/17/2021 6:26 AM [facility] ALT 7 <34 U/L 09/17/2021 6:26 AM [facility] GFR >60 >=60 mL/min/1.7 3 sq meter 09/17/2021 6:26 AM [facility] Comment:eGFR calculated with 2020 CKD-EPI equation. Vegetarian diet, extremely high or low muscle mass, and may affect results. Cystatin C with Glomerular Filtration Rate is a suitable alternative for these patients. ANION GAP 12 8 - 16 mmol/L 09/17/2021 6:26 AM [facility] Blood Venipuncture / Unknown 09/17/2021 5:20 AM CDT 09/17/2021 5:41 AM CDT [facility] - 09/17/2021 6:26 AM CDT Samples containing indocyanine green cause interferences on Total and/or Direct Bilirubin and must not be measured. Erick Venegas MD CHEMISTRY ORDERABL ES [facility]# [id number] [address] [facility] [place] [address] * (ABNORMAL) TRIGLYCERIDE (09/17/2021 5:20 AM CDT) TRIGLYCERIDE 336(H) <150 mg/dL 09/17/2021 6:26 AM T [facility] Blood Venipuncture / Unknown 09/17/2021 5:20 AM CDT 09/17/2021 5:41 AM CDT Narrative [employer] LABORATORY SERVICES - [facility] - 09/17/2021 6:26 AM CDT TRIGLYCERIDES ? mg/dL Normal ?< 150 Borderline High ?150 - 199 High ? 200 - 499 Very High ? >= 500 Based on AHA/NCEP Guidelines. Anahi Bass DO CHEMISTRY ORDERABLES [facility] LABORATORY SERVICES - [facility] CLIA# [id number] [address] [facility] [place] [address] * (ABNORMAL) CBC WITH DIFFERENTIAL (09/17/2021 5:20 AM CDT) WBC 4.2 4.0 - 9.8 K/uL 09/17/2021 6:06 AM CDT [facility] LABORATORY SERVICES - [facility] RBC 3.28(L) 3.90 - 4.90 M/uL 09/17/2021 6:06 AM CDT [facility] LABORATORY SERVICES - [facility] HEMOGLOBIN 9.9(L) 11.8 - 14.8 g/dL 09/17/2021 6:06 AM CDT [facility] LABORATORY SERVICES - [facility] HEMATOCRIT 31.3(L) 35.5 - 44.0 % 09/17/2021 6:06 AM CDT [facility] LABORATORY SERVICES - [facility] MCV 95.4 82.0 - 99.0 fL 09/17/2021 6:06 AM CDT [facility] LABORATORY SERVICES - [facility] MCH 30.2 27.2 - 32.6 pg 09/17/2021 6:06 AM CDT [facility] LABORATORY SERVICES - [facility] MCHC 31.6 31.5 - 35.5 g/dL 09/17/2021 6:06 AM CDT [facility] LABORATORY SERVICES - [facility] RDW 16.4(H) 11.5 - 14.5 % 09/17/2021 6:06 AM CDT [facility] LABORATORY SERVICES - [facility] RDW-STDEV 57.9(H) 37.1 - 48.7 fL 09/17/2021 6:06 AM [facility] hi5 LABORATORY SERVICES [facility] PLATELETS 180 140 - 350 K/uL 09/17/2021 6:06 AM [facility] hi5 LABORATORY SERVICES - [facility] MPV 9.7 9.3 - 12.4 fL 09/17/2021 6:06 AM [facility] hi5 LABORATORY SERVICES - [facility] NEUTROPHILS 58 % 09/17/2021 6:06 AM [facility] hi5 LABORATORY SERVICES - [facility] LYMPHOCYTES 34 % 09/17/2021 6:06 AM [facility] hi5 LABORATORY SERVICES [facility] MONOCYTES 6 % 09/17/2021 6:06 AM [facility] hi5 LABORATORY SERVICES - [facility] EOSINOPHILS 1 % 09/17/2021 6:06 AM [facility] hi5 LABORATORY SERVICES - [facility] BASOPHILS 1 % 09/17/2021 6:06 AM [facility] SERVICES - [facility] IMMATURE GRANULOCYTES 1 % 09/17/2021 6:06 AM [facility] hi5 LABORATORY SERVICES [facility] Comment:IG (Immature Granulo cyte) count includes Metamyelocytes, Myelocytes, and Promyelocytes NEUTROPHIL ABSOLUTE 2.44 1.90 - 7.00 K/uL 09/17/2021 6:06 AM [facility] hi5 LABORATORY SERVICES - [facility] LYMPHOCYTE ABSOLUTE 1.41 0.70 - 4.50 K/uL 09/17/2021 6:06 AM [facility] hi5 LABORATORY SERVICES - [facility] MONOCYTE ABSOLUTE 0.24 0.10 - 1.30 K/uL 09/17/2021 6:06 AM [facility] hi5 LABORATORY SERVICES - [facility] EOSINOPHIL ABSOLUTE 0.05 0.00 - 0.70 K/uL 09/17/2021 6:06 AM [facility] SERVICES - [facility] BASOPHILS ABSOLUTE 0.02 0.00 - 0.20 K/uL 09/17/2021 6:06 AM [employer] LABORATORY SERVICES - [facility] IMMATURE GRANULOCYTES ABSOLUTE 0.04(H) 0.00 - 0.03 K/uL 09/17/2021 6:06 AM [facility] [employer] SERVICES - [facility] Blood Venipuncture / Unknown 09/17/2021 5:20 AM CDT 09/17/2021 5:41 AM CDT Sharri Cruz COMMERCIAL PEST CONTROL TECHNICIAN HEMATOLOGY ORDERABLE S [facility]# [id number] [address] [place] [address] * (ABNORMAL) POC GLUCOSE (09/17/2021 2:14 AM CDT) GLUCOSE POC 171(H) 74 - 99 mg/dL 09/17/2021 2:14 AM CDT [facility] LABORATORY [facility] SPECIMEN SOURCE, GLUCOSE POC Whole Blood 09/17/2021 2:14 AM CDT [facility] LABORATORY [facility] Blood, whole 09/17/2021 2:14 AM CDT 09/17/2021 2:29 AM CDT Erick Venegas MD POINT OF CARE TEST ING Performing Organization Address [facility]/ZIP Co de Phone Number [facility]# [id number] [address] [place] [address] * (ABNORMAL) POC GLUCOSE (09/16/2021 8:34 PM CDT) GLUCOSE POC 248(H) 74 - 99 mg/dL 09/16/2021 8:34 PM CDT [facility] LABORATORY [facility] SPECIMEN SOURCE, GLUCOSE POC Whole Blood 09/16/2021 8:34 PM CDT [facility] LABORATORY [facility] Blood, whole 09/16/2021 8:34 PM CDT 09/16/2021 8:47 PM CDT Erick Venegas MD POINT OF CARE TEST ING [facility] CLIA# [id number] [address] [place] [address] * (ABNORMAL) POC GLUCOSE (09/16/2021 7:06 PM CDT) GLUCOSE POC 233(H) 74 - 99 mg/dL 09/16/2021 7:06 PM CDT [facility] LABORATORY SERVICES - [facility] SPECIMEN SOURCE, GLUCOSE POC Whole Blood 09/16/2021 7:06 PM CDT [facility] LABORATORY SERVICES - [facility] Blood, whole 09/16/2021 7:06 PM CDT 09/16/2021 7:16 PM CDT Erick Venegas MD POINT OF CARE TEST ING Performing Organization Address [facility] Co de Phone Number [facility] LABORATORY [facility] CLIA# [id number] [address] [place] [address] * (ABNORMAL) POC GLUCOSE (09/16/2021 2:20 PM CDT) Pathologist [facility] GLUCOSE POC 164(H) 74 - 99 mg/dL 09/16/2021 2:20 PM CDT [facility] LABORATORY SERVICES - [facility] SPECIMEN SOURCE, GLUCOSE POC Whole Blood 09/16/2021 2:20 PM CDT [facility] LABORATORY SERVICES - [facility] COMMENT, GLU POC Notified RN/MD 09/16/2021 2:[address] [facility] - [facility] Blood, whole 09/16/2021 2:20 PM CDT 09/16/2021 2:27 PM CDT Erick Venegas MD POINT OF CARE TEST ING Performing Organization Address [facility] Co de Phone Number [facility] LABORATORY [facility] CLIA# [id number] [address] [place] [address] * TYPE AND SCREEN (09/16/2021 11:26 AM CDT) Pathologist [facility] ABO GROUP B 09/16/2021 12:18 PM CDT [facility] LABORATORY SERVICES -- [facility] RH (D) TYPE Positive 09/16/2021 12:[address] [facility] -- [facility] ANTIBODY SCREEN Negative 09/16/2021 12:[address] [facility] -- [facility] Blood Venipuncture / Unknown 09/16/2021 11:26 AM CDT 09/16/2021 11:30 AM CDT Phoenix Riddle MD BLOOD BANK ORDERABL ES Performing Organization Address [facility]/ZIP Co de Phone Number [facility] LABORATORY SERVICES -- [facility]# [id number] [address] [place] [address] * PREPARE FRESH FROZEN PLASMA (09/16/2021 10:33 AM CDT) COMPONENT TYPE [id number] [facility]5 LABORATORY SERVICES [facility] COMPONENT IDENTIFICATION [id number] [id number] LABORATORY SERVICES [facility] UNIT ABO B [facility] -- [facility] UNIT RH NEG [employer] LABORATORY SERVICES -- [facility] COMPONENT STATUS [facility] [facility] LABORATORY SERVICES -- [facility] COMPONENT EXPIRATION DATE/TIME [facility]5 LABORATORY SERVICES -- [facility] COMPONENT CODING SYSTEM 1700 hi5 LABORATORY SERVICES -- [facility] 09/16/2021 10:3 3 AM CDT Phoenix Riddle MD LAB TRANSFUSION ORD ERABLES Performing Organization Address [facility] Co de Phone Number [facility] -- [facility]# [id number] [address] [place] [address] * PREPARE FRESH FROZEN PLASMA (09/16/2021 10:33 AM CDT) COMPONENT TYPE [id number] [facility] LAB[facility]ATORY SERVICES [facility] COMPONENT IDENTIFICATION [id number] [id number] LABORATORY SERVICES [facility] UN[facility] ABO B [facility] RH POS [facility] COMPONENT STATUS [employer] [facility] LABORATORY SERVICES -- [facility] COMPONENT EXPIRATION DATE/TIME [facility]5 LABORATORY SERVICES -- [facility] COMPONENT CODING SYSTEM [address] [facility] LABORATORY SERVICES -- [facility] Other, specify 09/16/2021 10 :33 AM CDT Phoenix Riddle MD LAB TRANSFUSION ORD ERABLES Performing Organization Address [facility]/State/ZIP Co de Phone Number [facility] LABORATORY SERVICES -- [facility] CLIA# [id number] [address] [place] [address] * (ABNORMAL) POC GLUCOSE (09/16/2021 9:11 AM CDT) GLUCOSE POC 188(H) 74 - 99 mg/dL 09/16/2021 9:[address] [facility] - [facility] SPECIMEN SOURCE, GLUCOSE POC Whole Blood 09/16/2021 9:11 AM CDT [facility] LABORATORY SERVICES - [facility] Blood, whole 09/16/2021 9:11 AM CDT 09/16/2021 9:20 AM CDT Erick Venegas MD POINT OF CARE TEST ING Performing Organization Address [facility]/ZIP Co de Phone Number [facility] LABORATORY [facility]# [id number] [address] [place] [address] * (ABNORMAL) COMPREHENSIVE METABOLIC PANEL (09/16/2021 4:16 AM CDT) SODIUM 138 136 - 145 mmol/L 09/16/2021 5:17 AM CDT [facility]5 LABORATORY SERVICES [facility] POTASSIUM 4.7 3.5 - 5.0 mmol/L 09/16/2021 5:17 AM CDT [facility] LABORATORY SERVICES - [facility] Comment:Moderate hemolysis p resent. Can cause significant falsely elevated result. Redraw if indicated. CHLORIDE 106 98 - 107 mmol/L 09/16/2021 5:17 AM CDT [facility]5 LABORATORY SERVICES [facility] CO2 22 22 - 29 mmol/L 09/16/2021 5:[address] [facility] - [facility] CALCIUM 8.5(L) 8.6 - 10.2 mg/dL 09/16/2021 5:17 AM [facility] [employer] [facility] BUN 7 6 - 20 mg/dL 09/16/2021 5:17 AM [facility] CREATININE 0.54 0.51 - 0.95 mg/dL 09/16/2021 5:17 AM [facility] GLUCOSE 200(H) 74 - 99 mg/dL 09/16/2021 5:17 AM [facility] TOTAL PROTEIN 5.3(L) 6.7 - 8.6 g/dL 09/16/2021 5:17 AM [facility] ALBUMIN 4.3 3.5 - 5.2 g/dL 09/16/2021 5:17 AM [facility] BILIRUBIN TOTAL 0.2(L) 0.3 - 1.2 mg/dL 09/16/2021 5:17 AM [facility] ALKALINE PHOSPHATASE 27(L) 35 - 104 U/L 09/16/2021 5:17 AM [facility] AST 19 <33 U/L 09/16/2021 5:17 AM [facility] [employer] [facility] Comment:Hemolysis present. R esult may be falsely elevated. ALT 9 <34 U/L 09/16/2021 5:17 AM [facility] [employer] [facility] Comment:Hemolysis present. R esult may be falsely elevated. GFR >60 >=60 mL/min/1.7 3 sq meter 09/16/2021 5:17 AM [facility] [employer] [facility] Comment:eGFR calculated with 2020 CKD-EPI equation. Vegetarian diet, extremely high or low muscle mass, and may affect results. Cystatin C with Glomerular Filtration Rate is a suitable alternative for these patients. ANION GAP 10 8 - 16 mmol/L 09/16/2021 5:17 AM [facility] [employer] [facility] Blood Venipuncture / Unknown 09/16/2021 4:16 AM T 09/16/2021 4:19 AM [facility] [employer] [facility] - 09/16/2021 5:17 AM CDT Samples containing indocyanine green cause interferences on Total and/or Direct Bilirubin and must not be measured. Erick Venegas MD CHEMISTRY ORDERABL ES Performing Organization Address [facility] Co de Phone Number [facility] [employer] [facility]# [id number] [address] [place] [id number] * (ABNORMAL) TRIGLYCERIDE (09/16/2021 4:16 AM CDT) Pathologist [facility] TRIGLYCERIDE 595(H) <150 mg/dL 09/16/2021 5:14 AM CDT [facility] [employer] [facility] Blood Venipuncture / Unknown 09/16/2021 4:16 AM CDT 09/16/2021 4:19 AM CDT [facility] [employer] [facility] - 09/16/2021 5:14 AM CDT TRIGLYCERIDES ? mg/dL Normal ?< 150 Borderline High ?150 - 199 High ? 200 - 499 Very High ? >= 500 Based on AHA/NCEP Guidelines. Anahi Bass DO CHEMISTRY ORDERABLES Performing Organization Address [facility] Co de Phone Number [facility] [employer] [facility]# [id number] [address] [place] [address] * (ABNORMAL) CBC WITH DIFFERENTIAL (09/16/2021 4:16 AM CDT) Pathologist [facility] WBC 4.0 4.0 - 9.8 K/uL 09/16/2021 4:46 AM CDT [facility] [employer] [facility] RBC 3.17(L) 3.90 - 4.90 M/uL 09/16/2021 4:46 AM CDT [facility] [employer] [facility] HEMOGLOBIN 9.5(L) 11.8 - 14.8 g/dL 09/16/2021 4:[address] [facility] HEMATOCRIT 30.6(L) 35.5 - 44.0 % 09/16/2021 4:46 AM CDT [facility] - [facility] MCV 96.5 82.0 - 99.0 fL 09/16/2021 4:46 AM CDT [facility] - [facility] MCH 30.0 27.2 - 32.6 pg 09/16/2021 4:46 AM CDT [facility] - . [facility] MCHC 31.0(L) 31.5 - 35.5 g/dL 09/16/2021 4:46 AM CDT [facility] - . [place] RDW 16.5(H) 11.5 - 14.5 % 09/16/2021 4:46 AM CDT [facility] - . [facility] RDW-STDEV 58.4(H) 37.1 - 48.7 fL 09/16/2021 4:46 AM CDT [employer] SERVICES - . [facility] PLATELETS 167 140 - 350 K/uL 09/16/2021 4:46 AM CDT [facility] LABORATORY SERVICES - . [facility] MPV 9.9 9.3 - 12.4 fL 09/16/2021 4:46 AM CDT [facility] - [facility] NEUTROPHILS 54 % 09/16/2021 4:46 AM CDT [facility] - [facility] LYMPHOCYTES 38 % 09/16/2021 4:46 AM CDT [facility] MONOCYTES 6 % 09/16/2021 4:46 AM CDT [facility] EOSINOPHILS 2 % 09/16/2021 4:46 AM CDT [facility] BASOPHILS 0 % 09/16/2021 4:46 AM CDT [facility] IMMATURE GRANULOCYTES 0 % 09/16/2021 4:46 AM CDT [facility] - [facility] NEUTROPHIL ABSOLUTE 2.17 1.90 - 7.00 K/uL 09/16/2021 4:46 AM CDT [facility] - [facility] LYMPHOCYTE ABSOLUTE 1.52 0.70 - 4.50 K/uL 09/16/2021 4:46 AM CDT [facility] - [facility] MONOCYTE ABSOLUTE 0.26 0.10 - 1.30 K/uL 09/16/2021 4:46 AM CDT [facility] LABORATORY SERVICES - . [facility] EOSINOPHIL ABSOLUTE 0.07 0.00 - 0.70 K/uL 09/16/2021 4:46 AM CDT [facility] LABORATORY SERVICES - [facility] BASOPHILS ABSOLUTE 0.01 0.00 - 0.20 K/uL 09/16/2021 4:46 AM CDT [facility] LABORATORY SERVICES - . [facility] IMMATURE GRANULOCYTES ABSOLUTE 0.01 0.00 - 0.03 K/uL 09/16/2021 4:46 AM CDT [facility] LABORATORY SERVICES - [facility] Blood Venipuncture / Unknown 09/16/2021 4:16 AM CDT 09/16/2021 4:19 AM CDT Sharri Cruz NP HEMATOLOGY ORDERABLE S [facility] LABORATORY [facility] CLAZ# [id number] [address] [place] [address] * MAGNESIUM LEVEL (09/16/2021 4:16 AM CDT) Pathologist [facility] Emergency Department MAGNESIUM 1.7 1.6 - 2.6 mg/dL 09/16/2021 12:45 PM CDT [facility] LABORATORY [facility] Blood Venipuncture / Unknown 09/16/2021 4:16 AM CDT 09/16/2021 4:19 AM CDT Antwon Coyle MD CHEMISTRY ORD ERABLES [facility] [employer] [facility]# [id number] [address] [place] [address] * (ABNORMAL) POC GLUCOSE (09/16/2021 1:54 AM CDT) GLUCOSE POC 213(H) 74 - 99 mg/dL 09/16/2021 1:54 AM CDT [facility] LABORATORY [facility] SPECIMEN SOURCE, GLUCOSE POC Whole Blood 09/16/2021 1:54 AM CDT [facility] LABORATORY SERVICES [facility] COMMENT, GLU POC Notified RN/ 09/16/2021 1:54 AM CDT [facility] LABORATORY SERVICES [facility] Blood, whole 09/16/2021 1:54 AM CDT 09/16/2021 2:01 AM CDT Erick Venegas MD POINT OF CARE TEST ING Performing Organization Address [facility] Co de Phone Number [facility] [id number] [address] [place] [address] * (ABNORMAL) POC GLUCOSE (09/15/2021 8:42 PM CDT) GLUCOSE POC 253(H) 74 - 99 mg/dL 09/15/2021 8:42 PM CDT [facility] LABORATORY SERVICES [facility] SPECIMEN SOURCE, GLUCOSE POC Whole Blood 09/15/2021 8:[address] [facility] COMMENT, GLU POC Notified RN/ 09/15/2021 8:[address] [facility] Blood, whole 09/15/2021 8:42 PM CDT 09/15/2021 9:02 PM CDT Erick Venegas MD POINT OF CARE TEST ING Performing Organization Address [facility] Co de Phone Number [facility] LABORATORY [facility]# [id number] [address] [place] [address] * (ABNORMAL) POC GLUCOSE (09/15/2021 5:59 PM CDT) GLUCOSE POC 247(H) 74 - 99 mg/dL 09/15/2021 5:59 PM CDT [facility] LABORATORY SERVICES [facility] SPECIMEN SOURCE, GLUCOSE POC Whole Blood 09/15/2021 5:59 PM CDT [facility] LABORATORY SERVICES [facility] Blood, whole 09/15/2021 5:59 PM CDT 09/15/2021 6:13 PM CDT Erick Venegas MD POINT OF CARE TEST ING Performing Organization Address [facility]/ZIP Co de Phone Number [facility]# [id number] [address] [place] [address] * (ABNORMAL) TRIGLYCERIDE (09/15/2021 2:47 PM CDT) TRIGLYCERIDE 519(H) <150 mg/dL 09/15/2021 3:47 PM CDT [facility] LABORATORY [facility] Blood Collection / Unknown 09/15/2021 2:47 PM CDT 09/15/2021 3:02 PM CDT Narrative [facility] LABORATORY [facility] - 09/15/2021 3:47 PM CDT TRIGLYCERIDES ? mg/dL Normal ?< 150 Borderline High ?150 - 199 High ? 200 - 499 Very High ? >= 500 Based on AHA/NCEP Guidelines. Phoenix Riddle MD CHEMISTRY ORDERABLE S Performing Organization Address [facility] Co de Phone Number [facility] [employer] [facility]# [id number] [address] [place] [address] * (ABNORMAL) POC GLUCOSE (09/15/2021 2:24 PM CDT) GLUCOSE POC 197(H) 74 - 99 mg/dL 09/15/2021 2:24 PM CDT [facility] LABORATORY [facility] SPECIMEN SOURCE, GLUCOSE POC Whole Blood 09/15/2021 2:24 PM CDT [facility] LABORATORY [facility] Blood, whole 09/15/2021 2:24 PM CDT 09/15/2021 2:32 PM CDT Erick Venegas MD POINT OF CARE TEST ING Performing Organization Address [facility]/ZIP Co de Phone Number [facility] [employer] [facility] CLIA# [id number] [address] [place] [address] * (ABNORMAL) POC GLUCOSE (09/15/2021 9:10 AM CDT) GLUCOSE POC 193(H) 74 - 99 mg/dL 09/15/2021 9:10 AM CDT [facility] LABORATORY SERVICES - [facility] SPECIMEN SOURCE, GLUCOSE POC Whole Blood 09/15/2021 9:10 AM CDT [facility] LABORATORY SERVICES [facility] Blood, whole 09/15/2021 9:10 AM CDT 09/15/2021 9:17 AM CDT Erick Venegas MD POINT OF CARE TEST ING Performing Organization Address [facility] Co de Phone Number [facility] [employer] [facility] CLIA# [id number] [address] [place] [address] * (ABNORMAL) COMPREHENSIVE METABOLIC PANEL (09/15/2021 5:09 AM CDT) Pathologist [facility] Emergency Department SODIUM 136 136 - 145 mmol/L 09/15/2021 6:18 AM CDT [facility] LABORATORY SERVICES [facility] POTASSIUM 4.2 3.5 - 5.0 mmol/L 09/15/2021 6:18 AM CDT [facility] LABORATORY SERVICES [facility] CHLORIDE 103 98 - 107 mmol/L 09/15/2021 6:18 AM CDT [facility] LABORATORY SERVICES - [facility] Comment:Significant change f rom prior result, correlate clinically and redraw if necessary. CO2 19(L) 22 - 29 mmol/L 09/15/2021 6:18 AM CDT [facility] LABORATORY SERVICES [facility] CALCIUM 8.7 8.6 - 10.2 mg/dL 09/15/2021 6:18 AM CDT [facility] LABORATORY SERVICES - [facility] BUN 6 6 - 20 mg/dL 09/15/2021 6:18 AM CDT [facility] LABORATORY SERVICES [facility] CREATININE 0.65 0.51 - 0.95 mg/dL 09/15/2021 6:18 AM [facility] LABORATORY [facility] GLUCOSE 181(H) 74 - 99 mg/dL 09/15/2021 6:18 AM [facility] TOTAL PROTEIN 5.6(L) 6.7 - 8.6 g/dL 09/15/2021 6:18 AM [facility] ALBUMIN 4.4 3.5 - 5.2 g/dL 09/15/2021 6:18 AM [facility] BILIRUBIN TOTAL 0.3 0.3 - 1.2 mg/dL 09/15/2021 6:18 AM [facility] ALKALINE PHOSPHATASE 45 35 - 104 U/L 09/15/2021 6:18 AM [facility] AST 14 <33 U/L 09/15/2021 6:18 AM [facility] ALT 10 <34 U/L 09/15/2021 6:18 AM [facility] GFR >60 >=60 mL/min/1.7 3 sq meter 09/15/2021 6:18 AM [facility] Comment:eGFR calculated with 2020 CKD-EPI equation. Vegetarian diet, extremely high or low muscle mass, and may affect results. Cystatin C with Glomerular Filtration Rate is a suitable alternative for these patients. ANION GAP 14 8 - 16 mmol/L 09/15/2021 6:18 AM [facility] Blood Venipuncture / Unknown 09/15/2021 5:09 AM CDT 09/15/2021 5:15 AM [facility] - 09/15/2021 6:18 AM [facility] Samples containing indocyanine green cause interferences on Total and/or Direct Bilirubin and must not be measured. Anahi Bass DO CHEMISTRY ORDERABLES [facility] CLIA# [id number] [address] [place] [address] * (ABNORMAL) TRIGLYCERIDE (09/15/2021 5:09 AM CDT) Pathologist [facility] Emergency Department TRIGLYCERIDE 1,254(H) <150 mg/dL 09/15/2021 6:23 AM CDT [facility] [employer] SERVICES [facility] Blood Venipuncture / Unknown 09/15/2021 5:09 AM CDT 09/15/2021 5:15 AM CDT [facility] [employer] [facility] - 09/15/2021 6:23 AM CDT TRIGLYCERIDES ? mg/dL Normal ?< 150 Borderline High ?150 - 199 High ? 200 - 499 Very High ? >= 500 Based on AHA/NCEP Guidelines. Anahi Bass DO CHEMISTRY ORDERABLES [facility] [employer] [facility] CLIA# [id number] [address] [place] [address] * (ABNORMAL) CBC WITH DIFFERENTIAL (09/15/2021 5:09 AM CDT) [facility] WBC 5.4 4.0 - 9.8 K/uL 09/15/2021 5:39 AM CDT [facility] LABORATORY [facility] RBC 3.37(L) 3.90 - 4.90 M/uL 09/15/2021 5:39 AM CDT [facility] [employer] [facility] HEMOGLOBIN 10.3(L) 11.8 - 14.8 g/dL 09/15/2021 5:39 AM [facility] [employer] [facility] HEMATOCRIT 31.8(L) 35.5 - 44.0 % 09/15/2021 5:39 AM CDT [facility] [employer] [facility] MCV 94.4 82.0 - 99.0 fL 09/15/2021 5:39 AM CDT [facility] [employer] [facility] MCH 30.6 27.2 - 32.6 pg 09/15/2021 5:39 AM CDT [facility] LABORATORY SERVICES - [facility] MCHC 32.4 31.5 - 35.5 g/dL 09/15/2021 5:39 AM CDT [facility] - [facility] RDW 16.2(H) 11.5 - 14.5 % 09/15/2021 5:39 AM CDT [facility] LABORATORY SERVICES - [facility] RDW-STDEV 55.9(H) 37.1 - 48.7 fL 09/15/2021 5:39 AM CDT [facility] LABORATORY SERVICES - . [facility] PLATELETS 188 140 - 350 K/uL 09/15/2021 5:39 AM CDT [facility] LABORATORY SERVICES - . [facility] MPV 9.6 9.3 - 12.4 fL 09/15/2021 5:39 AM CDT [facility] LABORATORY SERVICES - . [facility] NEUTROPHILS 66 % 09/15/2021 5:39 AM CDT [facility] LABORATORY SERVICES - . [facility] LYMPHOCYTES 27 % 09/15/2021 5:39 AM CDT [facility] MONOCYTES 6 % 09/15/2021 5:39 AM CDT [facility] EOSINOPHILS 1 % 09/15/2021 5:39 AM CDT [facility] LABORATORY SERVICES - . [facility] BASOPHILS 0 % 09/15/2021 5:39 AM CDT [facility] LABORATORY SERVICES - . [facility] IMMATURE GRANULOCYTES 1 % 09/15/2021 5:39 AM CDT [facility] LABORATORY SERVICES - . [facility] Comment:IG (Immature Granulo cyte) count includes Metamyelocytes, Myelocytes, and Promyelocytes NEUTROPHIL ABSOLUTE 3.56 1.90 - 7.00 K/uL 09/15/2021 5:39 AM CDT [facility] LYMPHOCYTE ABSOLUTE 1.44 0.70 - 4.50 K/uL 09/15/2021 5:39 AM CDT [facility] MONOCYTE ABSOLUTE 0.32 0.10 - 1.30 K/uL 09/15/2021 5:39 AM CDT [facility] EOSINOPHIL ABSOLUTE 0.06 0.00 - 0.70 K/uL 09/15/2021 5:39 AM CDT [facility] - [facility] BASOPHILS ABSOLUTE 0.02 0.00 - 0.20 K/uL 09/15/2021 5:39 AM CDT [facility] LABORATORY SERVICES - [facility] IMMATURE GRANULOCYTES ABSOLUTE 0.03 0.00 - 0.03 K/uL 09/15/2021 5:39 AM CDT [facility] LABORATORY SERVICES - [facility] Blood Venipuncture / Unknown 09/15/2021 5:09 AM CDT 09/15/2021 5:15 AM CDT Sharri Cruz NP HEMATOLOGY ORDERABLE S [facility] LABORATORY [facility] CLIA# [id number] [address] [place] [address] * (ABNORMAL) POC GLUCOSE (09/15/2021 4:55 AM CDT) GLUCOSE POC 183(H) 74 - 99 mg/dL 09/15/2021 4:55 AM CDT [facility] LABORATORY [facility] - [facility] SPECIMEN SOURCE, GLUCOSE POC Whole Blood 09/15/2021 4:55 AM CDT [facility] LABORATORY [facility] Blood, whole 09/15/2021 4:55 AM CDT 09/15/2021 5:17 AM CDT Trey Solorzano MD POINT OF CARE TESTIN G [facility] CLIA# [id number] [address] [place] [address] * (ABNORMAL) POC GLUCOSE (09/14/2021 11:36 PM CDT) GLUCOSE POC 193(H) 74 - 99 mg/dL 09/14/2021 11:36 PM CDT [facility] LABORATORY [facility] SPECIMEN SOURCE, GLUCOSE POC Whole Blood 09/14/2021 11:36 PM CDT [facility] LABORATORY [facility] Blood, whole 09/14/2021 11:3 6 PM CDT 09/14/2021 11:54 PM CDT Trey Solorzano MD POINT OF CARE TESTJERONIMO Maggie [facility] [employer] [facility] CLIA# [id number] [address] [place] [address] * (ABNORMAL) POC GLUCOSE (09/14/2021 9:48 PM CDT) GLUCOSE POC 178(H) 74 - 99 mg/dL 09/14/2021 9:48 PM CDT [facility] LABORATORY SERVICES [facility] SPECIMEN SOURCE, GLUCOSE POC Whole Blood 09/14/2021 9:48 PM CDT [facility] LABORATORY SERVICES [facility] Blood, whole 09/14/2021 9:48 PM CDT 09/14/2021 10:22 PM CDT Trey Solorzano MD POINT OF CARE FLY Maggie Performing Organization Address [facility]/ZIP Co de Phone Number [facility] LABORATORY [facility] CLAZ# [id number] [address] [place] [address] * (ABNORMAL) POC GLUCOSE (09/14/2021 5:41 PM CDT) GLUCOSE POC 155(H) 74 - 99 mg/dL 09/14/2021 5:41 PM CDT [facility] LABORATORY SERVICES [facility] SPECIMEN SOURCE, GLUCOSE POC Whole Blood 09/14/2021 5:41 PM CDT [facility] LABORATORY [facility] Blood, whole 09/14/2021 5:41 PM CDT 09/14/2021 5:51 PM CDT Trey Solorzano MD POINT OF CARE TESTJERONIMO Maggie [facility] LABORATORY [facility] CLIA# [id number] [address] [place] [address] * (ABNORMAL) POC GLUCOSE (09/14/2021 4:33 PM CDT) GLUCOSE POC 191(H) 74 - 99 mg/dL 09/14/2021 4:33 PM CDT [facility] SPECIMEN SOURCE, GLUCOSE POC Whole Blood 09/14/2021 4:33 PM CDT [facility] Blood, whole 09/14/2021 4:33 PM CDT 09/14/2021 4:42 PM CDT Trey Solorzano MD POINT OF CARE TESTIN G Performing Organization Address [facility]/ZIP Co de Phone Number [facility] CLIA# [id number] [address] [place] [address] * (ABNORMAL) TRIGLYCERIDE (09/14/2021 3:52 PM CDT) Pathologist [facility] Emergency Department TRIGLYCERIDE 1,827(H) <150 mg/dL 09/14/2021 4:50 PM CDT [facility] Blood Venipuncture / Unknown 09/14/2021 3:52 PM CDT 09/14/2021 4:04 PM CDT Narrative [facility] - 09/14/2021 4:50 PM CDT TRIGLYCERIDES ? mg/dL Normal ?< 150 Borderline High ?150 - 199 High ? 200 - 499 Very High ? >= 500 Based on AHA/NCEP Guidelines. Anahi Bass DO CHEMISTRY ORDERABLES Performing Organization Address [facility]/ZIP Co de Phone Number [facility]# [id number] [address] [place] [address] * (ABNORMAL) POC GLUCOSE (09/14/2021 3:29 PM CDT) GLUCOSE POC 130(H) 74 - 99 mg/dL 09/14/2021 3:29 PM CDT [facility] LABORATORY [facility] SPECIMEN SOURCE, GLUCOSE POC Whole Blood 09/14/2021 3:29 PM CDT [facility] LABORATORY [facility] Blood, whole 09/14/2021 3:29 PM CDT 09/14/2021 4:46 PM CDT Trey Solorzano MD POINT OF CARE TESTJERONIMO G Performing Organization Address [facility] Co de Phone Number [facility] LABORATORY [facility]# [id number] [address] [place] [address] * POC GLUCOSE (09/14/2021 2:31 PM CDT) GLUCOSE POC 94 74 - 99 mg/dL 09/14/2021 2:31 PM CDT [facility] LABORATORY [facility] SPECIMEN SOURCE, GLUCOSE POC Whole Blood 09/14/2021 2:31 PM CDT [facility] LABORATORY [facility] Blood, whole 09/14/2021 2:31 PM CDT 09/14/2021 4:46 PM CDT Trey Solorzano MD POINT OF CARE TESTJERONIMO Maggie Performing Organization Address [facility] de Phone Number [facility]# [id number] [address] [place] [address] * (ABNORMAL) CALCIUM IONIZED (09/14/2021 2:30 PM CDT) PH, VENOUS 7.21(L) 7.32 - 7.43 09/14/2021 2:52 PM CDT [facility] LABORATORY [facility] CALCIUM IONIZED 4.5(L) 4.8 - 5.2 mg/dL 09/14/2021 2:52 PM CDT [facility] LABORATORY [facility] Comment:Not received on ice. Results may be falsely elevated. Blood Venipuncture / Unknown 09/14/2021 2:30 PM CDT 09/14/2021 2:43 PM CDT Phoenix Riddle MD CHEMISTRY ORDERABLE S Performing Organization Address [facility]/ZIP Co de Phone Number [facility]# [id number] [address] [place] [address] * POC GLUCOSE (09/14/2021 1:40 PM CDT) [facility] GLUCOSE POC 74 74 - 99 mg/dL 09/14/2021 1:40 PM CDT [facility] SPECIMEN SOURCE, GLUCOSE POC Whole Blood 09/14/2021 1:40 PM CDT [facility] [employer] [facility] Blood, whole 09/14/2021 1:40 PM CDT 09/14/2021 4:46 PM CDT Trey Solorzano MD POINT OF CARE TESTIN G Performing Organization Address [facility] Co de Phone Number [facility] [employer] [facility]# [id number] [address] [place] [address] * 2019 NOVEL CORONAVIRUS (COVID-19) PCR DETECTION (09/14/2021 1:27 PM CDT) [facility] COVID-19 PCR NOT DETECTED Not Detected 09/15/19 2:53 PM CDT [facility] [employer] [facility] 09/14/2021 2:53 PM CDT [facility] [employer] [facility] Upper Respiratory ENTIRE NASOPHARYNX / Unknown Collection / Unknown 09/14/2021 1:27 PM CDT 09/14/2021 1:33 PM CDT Narrative [facility] LABORATORY [facility] - 09/14/2021 2:53 PM CDT This test [...] Bass DO MICROBIOLOGY - GENER AL ORDERABLES [facility] LABORATORY [facility]# [id number] [address] [place] [address] * POC GLUCOSE (09/14/2021 12:46 PM CDT) GLUCOSE POC 80 74 - 99 mg/dL 09/14/2021 12:46 PM CDT [facility] LABORATORY SERVICES - [facility] SPECIMEN SOURCE, GLUCOSE POC Whole Blood 09/14/2021 12:46 PM CDT [facility] LABORATORY SERVICES - [facility] Blood, whole 09/14/2021 12:4 6 PM CDT 09/14/2021 4:46 PM CDT Trey Solorzano MD POINT OF CARE TESTJERONIMO Serrano Performing Organization Address [facility] Co de Phone Number [facility] LABORATORY [facility]# [id number] [address] [place] [address] * POC GLUCOSE (09/14/2021 11:52 AM CDT) GLUCOSE POC 93 74 - 99 mg/dL 09/14/2021 11:52 AM CDT [facility] LABORATORY SERVICES - [facility] SPECIMEN SOURCE, GLUCOSE POC Whole Blood 09/14/2021 11:52 AM CDT [facility] LABORATORY SERVICES [facility] Blood, whole 09/14/2021 11:5 2 AM CDT 09/14/2021 12:09 PM CDT Trey Solorzano MD POINT OF CARE TESTJERONIMO Serrano Performing Organization Address [facility]/ZIP Co de Phone Number [facility] LABORATORY [facility]# [id number] [address] [place] [address] * (ABNORMAL) PROTIME-INR (09/14/2021 10:34 AM CDT) PROTIME 12.4(L) 12.7 - 15.1 Seconds 09/14/2021 11:55 AM CDT [facility] LABORATORY [facility] - [facility] INR 0.9 0.9 - 1.1 09/14/2021 11:55 AM CDT [facility] LABORATORY [facility] Blood Venipuncture / Unknown 09/14/2021 10:34 AM CDT 09/14/2021 10:44 AM CDT Narrative [facility] LABORATORY [facility] - 09/14/2021 11:55 AM CDT INR Therapeutic Range: Adult: ?? 2.0 - 3.0 for pulmonary embolism or prophylaxis against venous ?thrombosis or systemic embolization. 2.0 - 3.0 for patients with tissue heart valves. 2.5 - 3.5 for patients with mechanical heart valves or post LA. Pediatric ??(12 years and under): 1.5 - 3.0 Although the target range in children is not well established, ?INR values of 1.5 - 3.0 are recommended for most patients. ?Higher values have been used in children with prosthetic ?cardiac valves and hereditary clotting disorders. (<3 days) therapeutic ranges have not been established. Anahi Bass DO HEMATOLOGY ORDERABLE S [facility] [employer] [facility]# [id number] [address] [place] [address] * (ABNORMAL) POC GLUCOSE (09/14/2021 10:33 AM CDT) GLUCOSE POC 137(H) 74 - 99 mg/dL 09/14/2021 10:33 AM CDT [facility] LABORATORY [facility] SPECIMEN SOURCE, GLUCOSE POC Whole Blood 09/14/2021 10:33 AM CDT [facility] LABORATORY [facility] Blood, whole 09/14/2021 10:3 3 AM CDT 09/14/2021 12:07 PM CDT Trey Solorzano MD POINT OF CARE TESTIN Maggie [facility] LABORATORY [facility] CLIA# [id number] [address] [place] [address] * (ABNORMAL) POC GLUCOSE (09/14/2021 9:38 AM CDT) GLUCOSE POC 184(H) 74 - 99 mg/dL 09/14/2021 9:38 AM CDT [employer] LABORATORY SERVICES [facility] SPECIMEN SOURCE, GLUCOSE POC Whole Blood 09/14/2021 9:[address] [facility] Blood, whole 09/14/2021 9:38 AM CDT 09/14/2021 12:07 PM CDT Trey Solorzano MD POINT OF CARE TESTJERONIMO Maggie Performing Organization Address [facility]/ZIP Co de Phone Number [facility] [employer] [facility] CLIA# [id number] [address] [place] [address] * (ABNORMAL) POC GLUCOSE (09/14/2021 8:42 AM CDT) GLUCOSE POC 213(H) 74 - 99 mg/dL 09/14/2021 8:[address] [facility] SPECIMEN SOURCE, GLUCOSE POC Whole Blood 09/14/2021 8:[address] [facility] Blood, whole 09/14/2021 8:42 AM CDT 09/14/2021 12:06 PM CDT Trey Solorzano MD POINT OF CARE TESTJERONIMO Maggie [facility] LABORATORY [facility] CLIA# [id number] [address] [place] [address] * (ABNORMAL) CBC WITH DIFFERENTIAL (09/14/2021 4:54 AM CDT) [facility] WBC 5.7 4.0 - 9.8 K/uL 09/14/2021 5:27 AM CDT [facility] LABORATORY SERVICES - . [facility] RBC 3.43(L) 3.90 - 4.90 M/uL 09/14/2021 5:27 AM CDT [facility] LABORATORY SERVICES - . [facility] HEMOGLOBIN 11.3(L) 11.8 - 14.8 g/dL 09/14/2021 5:27 AM CDT [facility] LABORATORY SERVICES - [facility] HEMATOCRIT 32.4(L) 35.5 - 44.0 % 09/14/2021 5:27 AM CDT [facility] LABORATORY SERVICES - [facility] MCV 94.5 82.0 - 99.0 fL 09/14/2021 5:27 AM CDT [facility] LABORATORY SERVICES - [facility] MCH 32.9(H) 27.2 - 32.6 pg 09/14/2021 5:27 AM CDT [facility] LABORATORY SERVICES - [facility] MCHC 34.9 31.5 - 35.5 g/dL 09/14/2021 5:27 AM CDT [facility] LABORATORY SERVICES - [facility] RDW 16.2(H) 11.5 - 14.5 % 09/14/2021 5:27 AM CDT [facility] LABORATORY SERVICES - [facility] RDW-STDEV 55.8(H) 37.1 - 48.7 fL 09/14/2021 5:27 AM CDT [facility] LABORATORY SERVICES - [facility] PLATELETS 240 140 - 350 K/uL 09/14/2021 5:27 AM CDT [facility] LABORATORY SERVICES - . [facility] MPV 9.5 9.3 - 12.4 fL 09/14/2021 5:27 AM CDT [facility] LAB[facility]ATORY [facility] - . [facility] NEUTROPHILS 59 % 09/14/2021 5:27 AM CDT [facility] LABORATORY [facility] - . [facility] LYMPHOCYTES 32 % 09/14/2021 5:27 AM CDT [facility] LABORATORY SERVICES - . [facility] MONOCYTES 7 % 09/14/2021 5:27 AM CDT [facility] LABORATORY SERVICES - . [facility] EOSINOPHILS 1 % 09/14/2021 5:27 AM CDT [facility] - [facility] BASOPHILS 1 % 09/14/2021 5:27 AM CDT [facility] LABORATORY SERVICES - . [facility] IMMATURE GRANULOCYTES 1 % 09/14/2021 5:27 AM CDT [facility] LABORATORY SERVICES - . [facility] Comment:IG (Immature Granulo cyte) count includes Metamyelocytes, Myelocytes, and Promyelocytes NEUTROPHIL ABSOLUTE 3.34 1.90 - 7.00 K/uL 09/14/2021 5:27 AM CDT [facility] LABORATORY SERVICES - . [facility] LYMPHOCYTE ABSOLUTE 1.85 0.70 - 4.50 K/uL 09/14/2021 5:27 AM CDT [facility] LABORATORY SERVICES - . [facility] MONOCYTE ABSOLUTE 0.39 0.10 - 1.30 K/uL 09/14/2021 5:27 AM T [facility] LABORATORY SERVICES - . [facility] EOSINOPHIL ABSOLUTE 0.08 0.00 - 0.70 K/uL 09/14/2021 5:27 AM CDT [facility] LABORATORY SERVICES - . [facility] BASOPHILS ABSOLUTE 0.03 0.00 - 0.20 K/uL 09/14/2021 5:27 AM T [facility] LABORATORY SERVICES - . [facility] IMMATURE GRANULOCYTES ABSOLUTE 0.03 0.00 - 0.03 K/uL 09/14/2021 5:27 AM T [facility] LABORATORY SERVICES - [facility] Blood Venipuncture / Unknown 09/14/2021 4:54 AM CDT 09/14/2021 5:00 AM CDT Sharri Cruz NP HEMATOLOGY ORDERABLE S [facility] [employer] [facility]# [id number] [address] [place] [address] * (ABNORMAL) TRIGLYCERIDE (09/14/2021 4:54 AM CDT) [facility] TRIGLYCERIDE >4,425(H) <150 mg/dL 09/14/2021 7:40 AM CDT [facility] LABORATORY [facility] - [facility] Blood Venipuncture / Unknown 09/14/2021 4:54 AM CDT 09/14/2021 5:00 AM CDT Narrative [facility] LABORATORY SERVICES - [facility] - 09/14/2021 7:40 AM CDT TRIGLYCERIDES ? mg/dL Normal ?< 150 Borderline High ?150 - 199 High ? 200 - 499 Very High ? >= 500 Based on AHA/NCEP Guidelines. Sharri Cruz NP CHEMISTRY ORDERABLES Performing Organization Address [facility] Co de Phone Number [facility]# [id number] [address] [place] [address] * (ABNORMAL) POC GLUCOSE (09/14/2021 3:04 AM CDT) GLUCOSE POC 183(H) 74 - 99 mg/dL 09/14/2021 3:04 AM CDT [facility] [employer] [facility] SPECIMEN SOURCE, GLUCOSE POC Whole Blood 09/14/2021 3:[address] [facility] Blood, whole 09/14/2021 3:04 AM CDT 09/14/2021 3:12 AM CDT Trey Solorzano MD POINT OF CARE TESTIN G Performing Organization Address [facility] Co de Phone Number [facility] [employer] [facility]# [id number] [address] [place] [address] * (ABNORMAL) POC GLUCOSE (09/14/2021 1:59 AM CDT) GLUCOSE POC 175(H) 74 - 99 mg/dL 09/14/2021 1:59 AM CDT [facility] LABORATORY SERVICES - [facility] SPECIMEN SOURCE, GLUCOSE POC Whole Blood 09/14/2021 1:[address] [facility] - [facility] Blood, whole 09/14/2021 1:59 AM CDT 09/14/2021 3:09 AM CDT Trey Solorzano MD POINT OF CARE TESTJERONIMO Maggie Performing Organization Address [facility]/ZIP Co de Phone Number [facility] [employer] [facility]# [id number] [address] [place] [address] * (ABNORMAL) POC GLUCOSE (09/14/2021 1:01 AM CDT) GLUCOSE POC 229(H) 74 - 99 mg/dL 09/14/2021 1:01 AM CDT [facility] LABORATORY SERVICES [facility] SPECIMEN SOURCE, GLUCOSE POC Whole Blood 09/14/2021 1:01 AM CDT [facility] LABORATORY SERVICES [facility] COMMENT, GLU POC Notified RN/MD 09/14/2021 1:01 AM T [facility] LABORATORY SERVICES [facility] Blood, whole 09/14/2021 1:01 AM CDT 09/14/2021 1:09 AM CDT Trey Solorzano MD POINT OF CARE TESTJERONIMO Serrano Performing Organization Address [facility] Co de Phone Number [facility] [employer] [facility]# [id number] [address] [place] [address] * (ABNORMAL) BASIC METABOLIC PANEL (09/14/2021 12:09 AM CDT) SODIUM 127(L) 136 - 145 mmol/L 09/14/2021 1:22 AM T [facility] LABORATORY SERVICES [facility] POTASSIUM 4.5 3.5 - 5.0 mmol/L 09/14/2021 1:22 AM T [facility] LABORATORY SERVICES [facility] Comment:Moderate hemolysis p resent. Can cause significant falsely elevated result. Redraw if indicated. CHLORIDE 90(L) 98 - 107 mmol/L 09/14/2021 1:22 AM CDT [facility] LABORATORY SERVICES [facility] CO2 22 22 - 29 mmol/L 09/14/2021 1:22 [address] [facility] CALCIUM 8.4(L) 8.6 - 10.2 mg/dL 09/14/2021 1:22 AM T [facility] LABORATORY [facility] BUN 12 6 - 20 mg/dL 09/14/2021 1:22 AM [facility] CREATININE 0.57 0.51 - 0.95 mg/dL 09/14/2021 1:22 AM [facility] GLUCOSE 212(H) 74 - 99 mg/dL 09/14/2021 1:22 AM [facility] GFR >60 >=60 mL/min/1.7 3 sq meter 09/14/2021 1:22 AM [facility] LABORATORY [facility] Comment:eGFR calculated with 2020 CKD-EPI equation. Vegetarian diet, extremely high or low muscle mass, and may affect results. Cystatin C with Glomerular Filtration Rate is a suitable alternative for these patients. ANION GAP 15 8 - 16 mmol/L 09/14/2021 1:22 AM [facility] Blood Venipuncture / Unknown 09/14/2021 12:09 AM CDT 09/14/2021 12:18 AM CDT Juan José Mares MD CHEMISTRY ORD ERABLES [facility]# [id number] [address] [facility] [place] [place] [address] * (ABNORMAL) CALCIUM IONIZED (09/14/2021 12:09 AM CDT) Pathologist [facility] PH, VENOUS 7.33 7.32 - 7.43 09/14/2021 12:31 AM T [facility] LABORATORY [facility] CALCIUM IONIZED 4.6(L) 4.8 - 5.2 mg/dL 09/14/2021 12:31 AM T [facility] Blood Venipuncture / Unknown 09/14/2021 12:09 AM CDT 09/14/2021 12:18 AM CDT Juan José Mares MD CHEMISTRY ORD ERABLES Performing Organization Address City/[facility]/ZIP Co de Phone Number [facility]# [id number] [address] [place] [address] * (ABNORMAL) CK (09/14/2021 12:09 AM CDT) CK 205(H) 20 - 180 U/L 09/14/2021 1:04 AM CDT [facility] Comment:Hemolysis present. R esult may be falsely elevated. Blood Venipuncture / Unknown 09/14/2021 12:09 AM CDT 09/14/2021 12:18 AM CDT Juan José Mares MD CHEMISTRY ORD ERABLES Performing Organization Address [facility] Co de Phone Number [facility]# [id number] [address] [place] [address] * ETHANOL LEVEL (09/14/2021 12:09 AM CDT) Pathologist [facility] ETHANOL <10.00 <10.00 mg/dL 09/14/2021 1:30 AM CDT [facility] ETHANOL % <0.01 %w/v 09/14/2021 1:30 AM CDT [facility] Blood Venipuncture / Unknown 09/14/2021 12:09 AM CDT 09/14/2021 12:18 AM CDT Sharri Cruz NP CHEMISTRY ORDERABLES Performing Organization Address [facility]/ZIP Co de Phone Number [facility]# [id number] [address] [place] [address] * (ABNORMAL) POC GLUCOSE (09/13/2021 11:53 PM CDT) GLUCOSE POC 230(H) 74 - 99 mg/dL 09/13/2021 11:53 PM CDT [facility] LABORATORY [facility] SPECIMEN SOURCE, GLUCOSE POC Whole Blood 09/13/2021 11:53 PM CDT [facility] LABORATORY [facility] COMMENT, GLU POC Notified RN/MD 09/13/2021 11:53 PM CDT [facility] LABORATORY [facility] Blood, whole 09/13/2021 11:5 3 PM CDT 09/14/2021 12:00 AM CDT Trey Solorzano MD POINT OF CARE TESTIN G Performing Organization Address [facility]/ZIP Co de Phone Number [facility]# [id number] [address] [place] [address] * HCG QUALITATIVE, URINE (09/13/2021 11:51 PM CDT) HCG QUAL URINE Negative Negative 09/14/2021 12:07 AM CDT [facility] [employer] [facility] COLOR UA Yellow Pale to Dark Yellow 09/14/2021 12:07 AM T [facility] [employer] [facility] CLARITY UA Clear Clear 09/14/2021 12:07 AM T [facility] [employer] [facility] Urine URINE SPECIMEN OBTAINED BY CLEAN CATCH PROCEDURE / Unknown Collection / Unknown 09/13/2021 11:51 PM CDT 09/14/2021 12:01 AM CDT Sharri Cruz NP URINE ORDERABLES Performing Organization Address [facility]/ZIP Co de Phone Number [facility]# [id number] [address] [place] [address] * (ABNORMAL) DRUG SCREEN, URINE (09/13/2021 11:51 PM CDT) AMPHETAMINE QUAL, URINE Negative Negative 09/14/2021 12:26 AM CDT [facility] [employer] [facility] BARBITURATE QUAL, URINE Negative Negative 09/14/2021 12:26 AM CDT [facility] LABORATORY [facility] BENZODIAZEPINE QUAL, URINE Negative Negative 09/14/2021 12:26 AM [facility] COCAINE QUAL URINE Negative Negative 09/14/2021 12:26 AM [facility] OPIATE QUAL, URINE Presumptive Positive(A) Negative 09/14/2021 12:26 AM [facility] CANNABINOIDS QUAL, URINE Negative Negative 09/14/2021 12:26 AM [facility] PCP QUAL, URINE Negative Negative 12:26 AM [facility] OXYCODONE QUAL, URINE Negative Negative 09/14/2021 12:26 AM [facility] METHADONE QUAL, URINE Negative Negative 09/14/2021 12:26 AM [facility] CREATININE, URINE 103.2 29.0 - 226.0 mg/dL 09/14/2021 12:26 AM [facility] Comment:Reference Range vari es with fluid intake and diet. Urine URINE SPECIMEN OBTAINED BY CLEAN CATCH PROCEDURE / Unknown Collection / Unknown 09/13/2021 11:51 PM T 09/13/2021 11:58 PM [facility] - 09/14/2021 12:26 AM [facility] This test is a qualitative screen. The [...] Negative ? 25 ng/mL ? Sharri Cruz [employer]CIAL [employer] CONTROL TECHNICIAN URINE ORDERABLES Performing Organization Address [facility] Co de Phone Number [facility]# [id number] [address] [place] [address] * POC ELECTROLYTES/BMP (09/13/2021 10:53 PM CDT) POTASSIUM POC 4.2 3.5 - 4.9 mmol/L 09/13/2021 10:53 PM CDT [facility] LABORATORY [facility] COMMENT, BMP POC RN/MD NOTIFIED 09/13/2021 10:53 PM CDT [facility] Blood 09/13/2021 10:5 3 PM CDT 09/13/2021 10:54 PM CDT Antwon Coyle MD POINT OF CARE TESTING Performing Organization Address [facility] Co de Phone Number [facility]# [id number] [address] [place] [address] * CT ABDOMEN PELVIS W CONTRAST (09/13/2021 10:43 PM CDT) Anatomical Region Laterality Modality Abdomen Computed Tomogra phy 09/13/2021 10:4 5 PM CDT Impressions 09/13/2021 11:03 PM CDT IMPRESSION: 1. A 3 mm right ureteropelvic junction stone with mild urothelial thickening but no hydronephrosis. 2. Trace perisplenic ascites, of unclear etiology. 3. Hepatic steatosis. DICTATION LOCATION: Location 1 - [facility] 09/13/2021 11:03 PM CDT EXAMINATION: [...] Hepatic steatosis. DICTATION LOCATION: Location 1 - [facility] Antwon Coyle MD CT ORDERABLES * (ABNORMAL) URINALYSIS WITH REFLEX CULTURE (09/13/2021 8:18 PM CDT) COLOR UA Yellow Pale to Dark Yellow 09/13/2021 8:47 PM CDT [facility] LABORATORY SERVICES - [facility] CLARITY UA Clear Clear 09/13/2021 8:47 PM CDT [facility] LABORATORY SERVICES - [facility] SPECIFIC GRAVITY UA 1.024 1.003 - 1.035 09/13/2021 8:47 PM CDT [facility] LABORATORY SERVICES - [facility] PH UA 5.0 5.0 - 8.0 09/13/2021 8:[address] [facility] - [facility] LEUKOCYTE ESTERASE UA Negative Negative 09/13/2021 8:47 PM CDT [facility] LABORATORY SERVICES - [facility] NITRITE UA Negative Negative 09/13/2021 8:47 PM CDT [facility] LABORATORY SERVICES - [facility] PROTEIN UA 2+(A) Negative 09/13/2021 8:47 PM CDT [facility] LABORATORY SERVICES - [facility] GLUCOSE UA 3+(A) Negative 09/13/2021 8:47 PM CDT [facility] LABORATORY SERVICES - [facility] KETONES UA Trace(A) Negative 09/13/2021 8:47 PM CDT [facility] LABORATORY SERVICES - [facility] UROBILINOGEN UA Normal <2.0 mg/dL 8:47 PM CDT [facility]AT[facility] BILIRUBIN UA Negative Negative 09/13/2021 8:47 PM CDT [facility] LABORATORY [facility] - . [facility] BLOOD UA Negative Negative 09/13/2021 8:47 PM CDT [facility] LABORATORY [facility] WBC UA 0-2 0 - 2 /hpf 09/13/2021 8:47 PM CDT [facility] LABORATORY [facility] RBC UA 3-5(A) 0 - 2 /hpf 09/13/2021 8:47 PM CDT [facility] LABORATORY [facility] BACTERIA UA Negative Negative /hpf 09/13/2021 8:47 PM CDT [facility] LABORATORY [facility] - . [facility] EPITHELIAL CELLS, URINE 6-10(A) 0 - 5 /hpf 09/13/2021 8:47 PM CDT [facility] LABORATORY [facility] - . [facility] Urine URINE SPECIMEN OBTAINED BY CLEAN CATCH PROCEDURE / Unknown Collection / Unknown 09/13/2021 8:18 PM CDT 09/13/2021 8:18 PM CDT Antwon Coyle MD URINE ORDERAB LES Performing Organization Address City/State/[facility] Co de Phone Number [facility]# [id number] [address] [place] [address] * (ABNORMAL) TRIGLYCERIDE (09/13/2021 6:49 PM CDT) TRIGLYCERIDE >4,425(H) <150 mg/dL 09/13/2021 7:55 PM CDT [facility] Blood Venipuncture / Unknown 09/13/2021 6:49 PM CDT 09/13/2021 6:52 PM CDT Narrative [facility] LABORATORY [facility] - 09/13/2021 7:55 PM CDT TRIGLYCERIDES ? mg/dL Normal ?< 150 Borderline High ?150 - 199 High ? 200 - 499 Very High ? >= 500 Based on AHA/NCEP Guidelines. Antwon Coyle MD CHEMISTRY ORD ERABLES [facility] LABORATORY SERVICES - [facility]# [id number] [place] [address] * (ABNORMAL) COMPREHENSIVE METABOLIC PANEL (09/13/2021 6:49 PM CDT) SODIUM 127(L) 136 - 145 mmol/L 09/13/2021 8:40 PM CDT [facility] LABORATORY SERVICES - [facility] POTASSIUM 09/13/2021 8:40 PM CDT [facility] LABORATORY SERVICES - [facility] Comment:Test cannot be perfo rmed due to gross hemolysis present. Redraw if indicated. CHLORIDE 90(L) 98 - 107 mmol/L 09/13/2021 8:40 PM CDT [facility] LABORATORY SERVICES - . [facility] CO2 22 22 - 29 mmol/L 09/13/2021 8:40 PM CDT [facility] LABORATORY SERVICES - [facility] CALCIUM 9.5 8.6 - 10.2 mg/dL 09/13/2021 8:40 PM CDT [facility] LABORATORY SERVICES - . [facility] BUN 12 6 - 20 mg/dL 09/13/2021 8:40 PM CDT [facility] LABORATORY SERVICES - . [facility] CREATININE 0.53 0.51 - 0.95 mg/dL 09/13/2021 8:40 PM CDT [facility] LABORATORY SERVICES - . [facility] GLUCOSE 281(H) 74 - 99 mg/dL 09/13/2021 8:40 PM CDT [facility] LABORATORY SERVICES - . [facility] TOTAL PROTEIN 6.9 6.7 - 8.6 g/dL 09/13/2021 8:40 PM CDT [facility] ALBUMIN 4.6 3.5 - 5.2 g/dL 09/13/2021 8:40 PM CDT [facility] BILIRUBIN TOTAL 0.3 0.3 - 1.2 mg/dL 09/13/2021 8:40 PM CDT [facility] LABORAT[facility] SERVICES - . [facility] ALKALINE PHOSPHATASE 09/13/2021 8:40 PM CDT [facility] LAB[facility]ATORY [facility] - . [facility] Comment:Test cannot be perfo rmed due to gross hemolysis present. Redraw if indicated. AST 39(H) <33 U/L 09/13/2021 8:40 PM CDT [facility] LABORATORY [facility] Comment: Cleared of chylomicrons. Hemolysis present. ??Result may be falsely elevated. ALT 16 <34 U/L 09/13/2021 8:40 PM CDT [facility] LABORATORY [facility] Comment: Cleared of chylomicrons. Hemolysis present. ??Result may be falsely elevated. GFR >60 >=60 mL/min/1.7 3 sq meter 09/13/2021 8:40 PM CDT [facility] LABORATORY [facility] Comment:eGFR calculated with 2020 CKD-EPI equation. Vegetarian diet, extremely high or low muscle mass, and may affect results. Cystatin C with Glomerular Filtration Rate is a suitable alternative for these patients. ANION GAP 15 8 - 16 mmol/L 09/13/2021 8:40 PM CDT [facility] Blood Venipuncture / Unknown 09/13/2021 6:49 PM CDT 09/13/2021 6:52 PM CDT Narrative [facility] LABORATORY [facility] - 09/13/2021 8:40 PM CDT Samples containing indocyanine green cause interferences on Total and/or Direct Bilirubin and must not be measured. Antwon Coyle MD CHEMISTRY ORD ERABLES [facility] [employer] [facility]# [id number] [address] [place], [place] [address] [address] * LIPASE (09/13/2021 6:49 PM CDT) LIPASE 33 13 - 60 U/L 09/13/2021 7:34 PM CDT [facility] [employer] [facility] Blood Venipuncture / Unknown 09/13/2021 6:49 PM CDT 09/13/2021 6:52 PM CDT Antwon Coyle MD CHEMISTRY ORD ERABLES [facility] CLIA# [id number] [place] [address] * (ABNORMAL) CBC WITH DIFFERENTIAL (09/13/2021 6:49 PM CDT) [facility] WBC 9.1 4.0 - 9.8 K/uL 09/13/2021 7:09 PM CDT [facility] RBC 3.95 3.90 - 4.90 M/uL 09/13/2021 7:09 PM CDT [facility] HEMOGLOBIN 12.8 11.8 - 14.8 g/dL 09/13/2021 7:09 PM CDT [facility] HEMATOCRIT 35.6 35.5 - 44.0 % 09/13/2021 7:09 PM CDT [facility] MCV 90.1 82.0 - 99.0 fL 09/13/2021 7:09 PM CDT [facility] MCH 32.4 27.2 - 32.6 pg 09/13/2021 7:09 PM CDT [facility] LABORATORY SERVICES - . [facility] MCHC 36.0(H) 31.5 - 35.5 g/dL 09/13/2021 7:09 PM CDT [facility] RDW 16.0(H) 11.5 - 14.5 % 09/13/2021 7:09 PM CDT [facility] - . [facility] RDW-STDEV 52.7(H) 37.1 - 48.7 fL 09/13/2021 7:09 PM CDT [facility] PLATELETS 293 140 - 350 K/uL 09/13/2021 7:09 PM CDT [facility] MPV 9.4 9.3 - 12.4 fL 09/13/2021 7:09 PM CDT [facility] NEUTROPHILS 71 % 09/13/2021 7:09 PM CDT [facility] LYMPHOCYTES 23 % 09/13/2021 7:09 PM CDT [facility] MONOCYTES 5 % 09/13/2021 7:09 PM CDT [facility] - . [facility] EOSINOPHILS 1 % 09/13/2021 7:09 PM CDT [facility] BASOPHILS 0 % 09/13/2021 7:09 PM CDT [facility] - . [facility] IMMATURE GRANULOCYTES 1 % 09/13/2021 7:09 PM CDT [facility] Comment:IG (Immature Granulo cyte) count includes Metamyelocytes, Myelocytes, and Promyelocytes NEUTROPHIL ABSOLUTE 6.45 1.90 - 7.00 K/uL 09/13/2021 7:09 PM CDT [facility] - [facility] LYMPHOCYTE ABSOLUTE 2.11 0.70 - 4.50 K/uL 09/13/2021 7:09 PM CDT [facility] - . [facility] MONOCYTE ABSOLUTE 0.41 0.10 - 1.30 K/uL 09/13/2021 7:09 PM CDT [facility] EOSINOPHIL ABSOLUTE 0.07 0.00 - 0.70 K/uL 09/13/2021 7:09 PM CDT [facility] BASOPHILS ABSOLUTE 0.03 0.00 - 0.20 K/uL 09/13/2021 7:09 PM T [facility] - . [facility] IMMATURE GRANULOCYTES ABSOLUTE 0.05(H) 0.00 - 0.03 K/uL 09/13/2021 7:09 PM T [facility] - . [facility] Blood Venipuncture / Unknown 09/13/2021 6:49 PM CDT 09/13/2021 6:52 PM CDT Antwon Coyle MD HEMATOLOGY OR DERABLES [id number] [place] [id number] documented in this encounter Visit Diagnoses Diagnosis [...] 0800, Until Discontinued, Routine, Previous Med: Fish Oil-[place]-3 Fatty Acids 360-1,200 mg Capsule - Orig [...] Lagos RN) 0830 (Given - Provider: Brenda Lagos RN) 0850 (Given - Provider: Brenda Lagos [...] Brenda Lagos RN) 1013 (Given - Provider: Bredna Lagos RN)1302 (Given - Provider: Brenda [place] [...] empty stomach 0534 (Given - Provider: Jaja Perez RN) 0416 (Given - Provider: Jud Garcia [...] 0800, Until Discontinued, Routine, Previous Med: Fish Oil-[place]-3 Fatty Acids 360-1,200 mg Capsule - Orig [...] - Provider: Brenda Lagos RN)2038 [facility] Jud Garcia RN) hydrOXYzine [...] Brenda Lagos [phone] (Given - Provider: Brenda aLgos RN) oxyCODONE (ROXICODONE) tablet 5 mg 5 [...] Routine documented in this encounter Care Teams Wound Care Nurse Relationship Specialty Start Date End Date Guerrero Middleton PA-C PCP - General Physician Design Studio Consultant 02/13/18 documented as of this encounter
--- OUTSIDE RECORDS SUMMARY | 2024-05-03 21:49 | XMS_ITS | Encounter Summary ---
Author Organization [facility] Address [address] [place] [address] Care Team Providers Care Hat Renovator Name Role Phone Guerrero Middleton PA-C Primary Care Provide r Reason for Visit * Reason Onset Date Comments due for PowerFlow port flush 10/19/2021 Encounter Details Date Type Department Care Team (Late st Contact Info) Description 10/19/2021 Telephone [facility] Donor Services [address] [address] Cathy Ken RN due for [...] [facility] Heart and V[facility] - [facility] [address] [place] [address] Marlys Mayer MD [address] [place] [address] documented as of this encounter Visit Diagnoses Not on filedocumented in this encounter Care Teams Hat Renovator Relationship Specialty Start Date End Date Guerrero Middleton PA-C PCP - General Physician Claim Manager 02/13/18 documented as of this encounter
--- OUTSIDE RECORDS SUMMARY | 2024-05-03 21:49 | XMS_ITS | Encounter Summary ---
Author Organization [facility] Address [address] [place] [address] Care Team Providers Care Bead Wire Insulator Name Role Phone Guerrero Middleton PA-C Primary Care Provide r Reason for Visit * Reason Onset Date Comments IOP 09/22/2021 Encounter Details Date Type Department Care Team (Late st Contact Info) Description 09/22/2021 Telephone [facility] Adult OP Services [address] [address] Linda Rogers, ANNA [address] [address] [facility] Social History Tobacco Use Types Packs/Day [...] How often do you attend chur or alevism services? Never 08/21/2018 Do you [...] [facility] [address] [place] [address] Marlys Mayer MD [address] [place] [address] documented as of this encounter Visit Diagnoses Not on filedocumented in this encounter Care Teams Bead Wire Insulator Relationship Specialty Start Date End Date Guerrero Middleton PA-C PCP - General Physician House Piping Inspector 02/13/18 documented as of this encounter
--- OUTSIDE RECORDS SUMMARY | 2024-05-03 21:49 | XMS_ITS | Encounter Summary ---
Author Organization [facility] Address [address] [place] [address] Care Team Providers Care Bank Vault Clerk Name Role Phone Guerrero Middleton PA-C Primary Care Provide r Encounter Details Date Type Department Care Team (Late st Contact Info) Description 11/30/2021 Telephone [facility] Donor Services [address] [address] Nicole Rosas MD [address] [place] [address] Social History Tobacco Use Types [...] How often do you attend chur or shinto services? Never 08/21/2018 Do you [...] [facility] Heart and Vascular - [place] [address] [place] [address] Marlys Mayer MD [address] [place] [address] documented as of this encounter Visit Diagnoses Not on filedocumented in this encounter Additional Health Concerns Infection Onset Date Last Indicated Resolved Time R/O GI Pathogen 09/19/2023 09/19/2023 09/21/2023 7 :33 AM CDT documented as of this encounter Care Teams Bank Vault Clerk Relationship Specialty Start Date End Date Guerrero Middleton PA-C PCP - General Physician Leasing Representative 02/13/18 documented as of this encounter
--- OUTSIDE RECORDS SUMMARY | 2024-05-03 21:49 | XMS_ITS | Encounter Summary ---
Author Organization [facility] Address [address] [place] [address] Care Team Providers Care Blanket Folder Name Role Phone Guerrero Middleton PA-C Primary Care Provide r Reason for Referral * Eval and Treat (Routine) - Closed Specialty Diagnoses / Procedures Referred By Tequila t Referred To Contact Gastroenterology Diagnoses Left upper quadrant abdominal pain Prudence Gates MD [address] [place] [address] [facility] Hepatology [place] A [address] [place] [address] Referral ID Status Reason Start Date Expiration Date Visits Re quested Visits Authorized [id number] Closed 07/03/2022 07/03/2023 1 1 RING MACHINE OPERATOR AUTOMATIC Reason for Visit * Reason Comments Diabetes Encounter Details Date Type Department Care Team (Late st Contact Info) Description 07/03/2022 1:30 PM SHIRRING MACHINE OPERATOR AUTOMATIC Office Visit [facility] Endocrinology [address] [place] [address] Prudence Gates MD [address] [place] [address] Type 2 diabetes mellitus with [...] Coronavirus/COVID-19? No / Unsure 07/03/2022 10:04 AM SHIRRING MACHINE OPERATOR AUTOMATIC documented as of this encounter Last Filed Vital Signs Vital Sign Reading Time Taken Comments Blood Pressure 112/80 07/03/2022 1:34 PM SHIRRING MACHINE OPERATOR AUTOMATIC Pulse 109 07/03/2022 1:34 PM SHIRRING MACHINE OPERATOR AUTOMATIC Temperature - - Respiratory Rate - - Oxygen Saturation 99% 07/03/2022 1:34 PM SHIRRING MACHINE OPERATOR AUTOMATIC Inhaled Oxygen Concentration - - Weight 86.8 kg (191 lb 6.4 oz) 07/03/2022 1:34 P M SHIRRING MACHINE OPERATOR AUTOMATIC Height 165.1 cm (5' 5 ) 07/03/2022 1:34 PM SHIRRING MACHINE OPERATOR AUTOMATIC Body Mass Index 31.85 07/03/2022 1:34 PM SHIRRING MACHINE OPERATOR AUTOMATIC documented in this encounter Patient Instructions * Attachments The following attachments cannot be sent through Care Everywhere. * Pancreatitis (Senegalese) documented in this encounter Progress Notes * Shira Olivo, CLAU - 07/03/2022 2:56 PM CST Reviewed diet and med taken Will set phone alarm to remind her to take insulin and meds Change basaglar to tresiba u200 62 units in am RING MACHINE OPERATOR AUTOMATIC * Prudence Gates MD - 07/03/2022 2:02 PM CST Casandra Jones is a 46 y.o. female with a [...] is on disability. She is on a [employer] program. She is depressed She eats once a day She drinks coffee in the morning She has dinner , take out or restaurant food once a week. For her lipids She takes fenofibrate 160 mg. She went to the [facility] and was told to stop the [...] tablet TAKE 1 TABLET BY MOUTH EVERY GARDEN EQUIPMENT MECHANIC 30 Tablet 0 Vascepa 1 gram Capsule [...] mouth daily. Once daily on an empty [id number] Tablet 3 LORazepam (ATIVAN) 1 mg tablet [...] replacement of left power flow port 05/11/2019 [place] ESOPHAGOGASTRODUODENOSCOPY TRANSORAL DIAGNOSTIC N/A 03/08/2018 ESOPHAGOGASTRODUODENOSCOPY performed by Ceasar Vega MD at [facility] GI LAB Family History Problem [...] 04:11 AM Lab Results Component Value Date/Time [id number] 51 08/10/2011 07:21 AM [id number] 6 08/10/2011 07:21 AM [id number] 57 08/10/2011 07:21 AM Lab Results Component Value Date/Time WBC 5.2 09/19/2021 04:11 AM HGB 9.9 (L) 09/19/2021 04:11 AM HCT 31.5 (L) 09/19/2021 04:11 AM PLT 187 09/19/2021 04:11 AM MCV 94.3 09/19/2021 04:11 AM No results found for: MICROALBUMIN, MALBUR, HOBRPR60, MICRCREATR, MICRALBURINE Lab Results Component Value Date/Time [...] Documenting clinical information in the medical record. RING MACHINE OPERATOR AUTOMATIC documented in this encounter Plan of Treatment Upcoming Encounters Date Type Department Care Team (Late st Contact Info) Description 09/14/2024 3:00 PM CDT Office Visit [facility] Heart and [facility] - [facility] [address] [address] [address] [place] [address] Marlys Mayer MD [address] [place] [address] Scheduled Referrals Name Type Priority Associated Diagnoses [...] behavior documented in this encounter Care Teams Blanket Folder Relationship Specialty Start Date End Date Guerrero Middleton PA-C PCP - General Physician Produce Shipper 02/13/18 documented as of this encounter
--- OUTSIDE RECORDS SUMMARY | 2024-05-03 21:49 | XMS_ITS | Encounter Summary ---
Author Organization [facility] Address [address] [place] [address] Care Team Providers Care Photo Editor Name Role Phone Guerrero Middleton PA-C Primary Care Provide r Encounter Details Date Type Department Care Team (Late st Contact Info) Description 12/08/2021 Telephone [facility] Donor Services [facility] [address] [place] [address] Phoenix Riddle MD [address] [place] [address] Social History Tobacco Use Types [...] How often do you attend chur or restoration services? Never 08/21/2018 Do you [...] [place] Heart and Vascular - Old [address] [place] [address] Marlys Mayer MD [address] [place] [address] documented as of this encounter Visit Diagnoses Not on filedocumented in this encounter Additional Health Concerns Infection Onset Date Last Indicated Resolved Time R/O GI Pathogen 09/19/2023 09/19/2023 09/21/2023 7 :33 AM CDT documented as of this encounter Care Teams Photo Editor Relationship Specialty Start Date End Date Guerrero Middleton PA-C PCP - General Physician Health Education Teacher 02/13/18 documented as of this encounter
--- OUTSIDE RECORDS SUMMARY | 2024-05-03 21:49 | XMS_ITS | Encounter Summary ---
Author Organization [facility] Address [address] [place] [address] Care Team Providers Care Fitness Consultant Name Role Phone Guerrero Middleton PA-C [...] How often do you attend [facility] or yazdanism services? Never 08/21/2018 Do [...] [facility] Heart [facility] V[facility] - [facility] [address] [place] [address] Marlys Mayer MD [address] [place] [address] documented as of this encounter Visit Diagnoses Not on filedocumented in this encounter Care Teams Fitness Consultant Relationship Specialty Start Date End Date Guerrero Middleton PA-C PCP - General Physician Barrel Reamer 02/13/18 documented as of this encounter
--- OUTSIDE RECORDS SUMMARY | 2024-05-03 21:49 | XMS_ITS | Encounter Summary ---
Author Organization [facility] Address [address] Orozco: Epic Prelude ADT [place] [address] Care Team Providers Care Street Railway Line Installer Name Role Phone Guerrero Middleton PA-C [...] often do you attend [facility] or yazdanism services? Never 08/21/2018 Do you [...] [facility] [place] [facility] - [facility] [address] [place] [address] Maryls Mayer MD [address] [place] [address] documented as of this encounter Visit Diagnoses Not on filedocumented in this encounter Care Teams Street Railway Line Installer Relationship Specialty Start Date End Date Guerrero Middleton PA-C PCP - General Physician Electrician Ship 02/13/18 documented as of this encounter
--- OUTSIDE RECORDS SUMMARY | 2024-05-03 21:49 | XMS_ITS | Encounter Summary ---
Author Organization [facility] Address [address] [place] [address] Care Team Providers Care Agricultural Lender Name Role Phone Guerrero Middleton PA-C Primary Care Provide r Reason for Visit * Reason Onset Date Comments Needs Appointment 09/28/2021 Encounter Details Date Type Department Care Team (Late st Contact Info) Description 09/28/[address] [facility] Donor Services [facility] [address] [place] [address] Phoenix Riddle MD [address] [facility] Department [place] [address] Needs Appointment Social History Tobacco [...] often do you attend chur ch or restorationist services? Never 08/21/2018 Do you [...] [facility] [address] [place] [address] Marlys Mayer MD [address] [place] [address] documented as of this encounter Visit Diagnoses Not on filedocumented in this encounter Care Teams Agricultural Lender Relationship Specialty Start Date End Date Guerrero Middleton PA-C PCP - General Physician Grease Worker 02/13/18 documented as of this encounter
--- OUTSIDE RECORDS SUMMARY | 2024-05-03 21:49 | XMS_ITS | Encounter Summary ---
Author Organization [facility] Address [address] Orozco: Epic Prelude ADT [place] [address] Care Team Providers Care Fashion Artist Name Role Phone Guerrero Middleton PA-C Primary [...] do you attend [facility] or latter day services? Never 08/21/2018 Do [...] [facility] [address] [place] [address] Marlys Mayer MD [address] [place] [address] documented as of this encounter Visit Diagnoses Not on filedocumented in this encounter Care Teams Fashion Artist Relationship Specialty Start Date End Date Guerrero Middleton PA-C PCP - General Physician Breeder Hen Service Technician 02/13/18 documented as of this encounter
--- OUTSIDE RECORDS SUMMARY | 2024-05-03 21:49 | XMS_ITS | Encounter Summary ---
Author Organization [facility] Address [address] [place] [address] Care Team Providers Care Dance Studio Manager Name Role Phone Guerrero Middleton PA-C Primary Care Provide r Reason for Visit * Reason Comments aetna approval letter Encounter Details Date Type Department Care Team (Late st Contact Info) Description 10/20/2021 Abstract [facility] Endocrinology [address] [place] [address] Prudence Gates MD [address] [facility] [address] [place] [address] Social History Tobacco Use Types Packs/Day Years [...] [facility] - [facility] [address] [place] [address] Marlys Mayer MD [address] [place] [address] documented as of this encounter Visit Diagnoses Not on filedocumented in this encounter Care Teams Dance Studio Manager Relationship Specialty Start Date End Date Guerrero Middleton PA-C PCP - General Physician Ultimate Hoops Referee 02/13/18 documented as of this encounter
--- OUTSIDE RECORDS SUMMARY | 2024-05-03 21:49 | XMS_ITS | Encounter Summary ---
Author Organization [facility] Address [address] [place] [address] Care Team Providers Care Senior Genetic Counselor Name Role Phone Guerrero Middleton PA-C Primary Care Provide r Encounter Details Date Type Department Care Team (Late st Contact Info) Description 10/13/2021 Telephone [facility] Oncology [address] [place] [address] Phoenix Riddle MD [address] [facility] [facility] [place] [address] Social History Tobacco Use Types [...] Heart and Vascular - [facility] [address] [place] [address] Marlys Mayer MD [address] [place] [address] documented as of this encounter Visit Diagnoses Not on filedocumented in this encounter Additional Health Concerns Infection Onset Date Last Indicated Resolved Time R/O GI Pathogen 09/19/2023 09/19/2023 09/21/2023 7 :33 AM CDT documented as of this encounter Care Teams Senior Genetic Counselor Relationship Specialty Start Date End Date Guerrero Middleton PA-C PCP - General Physician Installer 02/13/18 documented as of this encounter
--- OUTSIDE RECORDS SUMMARY | 2024-05-03 21:49 | XMS_ITS | Encounter Summary ---
Author Organization [facility] Address [address] [place] [address] Care Team Providers Care Artist Agent Name Role Phone Guerrero Middleton PA-C Primary Care Provide r Reason for Visit * Reason Onset Date Comments Bard Port flush 11/16/2021 Attempted to patel ch pt due to needing bard port flushes Encounter Details Date Type Department Care Team (Late st Contact Info) Description 11/16/2021 Telephone [facility] Oncology [address] [place] [address] Nicole Rosas MD [address] [place] [address] Bard Port flush (Attempted to [...] [facility] [address] [place] [address] Marlys Mayer MD [address] [place] [address] documented as of this encounter Visit Diagnoses Not on filedocumented in this encounter Additional Health Concerns Infection Onset Date Last Indicated Resolved Time R/O GI Pathogen 09/19/2023 09/19/2023 09/21/2023 7 :33 AM CDT documented as of this encounter Care Teams Artist Agent Relationship Specialty Start Date End Date Guerrero Middleton PA-C PCP - General Physician Devulcanizer Charger 02/13/18 documented as of this encounter
--- OUTSIDE RECORDS SUMMARY | 2024-05-03 21:49 | XMS_ITS | Encounter Summary ---
Author Organization [facility] Address [address] [place] [address] Care Team Providers Care Sales And Marketing Director Name Role Phone Guerrero Middleton PA-C [...] [facility] or denominational services? Never 08/21/2018 Do you belong to any clubs o r organizations such as islam groups, unions, fraternal or athletic groups, or [...] [facility] Heart and Vascular - [facility] [address] [place] [address] Marlys Mayer MD [address] [place] [address] documented as of this encounter Visit Diagnoses Not on filedocumented in this encounter Care Teams Sales And Marketing Director Relationship Specialty Start Date End Date Guerrero Middleton PA-C PCP - General Physician Senior Marketing Coordinator 02/13/18 documented as of this encounter
--- OUTSIDE RECORDS SUMMARY | 2024-05-03 21:49 | XMS_ITS | Encounter Summary ---
Author Organization [facility] Address [address] [place] [address] Care Team Providers Care Bone Process Operator Name Role Phone Guerrero Middleton PA-C Primary Care Provide r Encounter Details Date Type Department Care Team (Latest Contact Info) Description 07/03/2022 10:30 AM PARCEL POST TRUCK DRIVER - 07/03/2022 11:59 PM [facility] Hospital Encounter [facility] Donor Services [facility] [address] [place] [address] Phoenix Riddle MD [address] [facility] [place] [address] Discharge Disposition: Home or Self [...] Coronavirus/COVID-19? No / Unsure 07/03/2022 10:04 AM PARCEL POST TRUCK DRIVER documented as of this encounter Last Filed Vital Signs Vital Sign Reading Time Taken Comments Blood Pressure 128/94 07/03/2022 10:16 AM PARCEL POST TRUCK DRIVER Pulse 85 07/03/2022 10:16 AM PARCEL POST TRUCK DRIVER Temperature 36.8 ??C (98.2 ??F) 07/03/2022 10:[address] Respiratory Rate 16 07/03/2022 10:16 AM PARCEL POST TRUCK DRIVER Oxygen Saturation - - Inhaled Oxygen Concentration [...] tablet TAKE 1 TABLET BY MOUTH EVERY API DEVELOPER 30 Tablet 06/01/2021 09/19/2023 Vascepa 1 [...] Patient leaves BDS department ambulatory and stable. EL POST TRUCK DRIVER documented in this encounter Plan of Treatment Upcoming Encounters Date Type Department Care Team (Late st Contact Info) Description 09/14/2024 3:00 PM CDT Office Visit [facility] Heart and Vascular - [facility] [address] [place] [address] Marlys Mayer MD [address] [place] [address] documented as of this encounter [...] Tube to 516 Given 07/03/2022 10:42 AM PARCEL POST TRUCK DRIVER 500 Units Port heparin, porcine lock flush (pf) 100 unit/mL injection 500 Units 500 Units, IV, ONE TIME ONLY, 1 dose, On Sat07/03/22 at 0830, Routine, Tube to 516 Given 07/03/2022 10:40 AM PARCEL POST TRUCK DRIVER 500 Units Port sodium chloride flush injection 10 mL 10 mL, IV, ONE TIME ONLY, 1 dose, On Sat07/03/22 at 0830, Routine Given 07/03/2022 10:41 AM PARCEL POST TRUCK DRIVER 10 mL Port sodium chloride flush injection 10 mL 10 mL, IV, ONE TIME ONLY, 1 dose, On Sat07/03/22 at 0830, Routine Given 07/03/2022 10:42 AM PARCEL POST TRUCK DRIVER 10 mL Port sodium chloride flush injection 20 mL 20 mL, IV, ONE TIME ONLY, 1 dose, On Sat07/03/22 at 0830, Routine Given 07/03/2022 10:39 AM PARCEL POST TRUCK DRIVER 20 mL documented in this encounter Care Teams Bone Process Operator Relationship Specialty Start Date End Date Guerrero Middleton PA-C PCP - General Physician Web Content Director 02/13/18 documented as of this encounter
--- OUTSIDE RECORDS SUMMARY | 2024-05-03 21:49 | XMS_ITS | Encounter Summary ---
Author Organization [facility] Address [address] [place] [address] Care Team Providers Care Treasury Analyst Name Role Phone Guerrero Middleton PA-C Primary Care Provide r Reason for Visit * Auth/Cert Specialty Diagnoses / Procedures Referred By Contac t Referred To Contact Laboratory [address] [address] Referral ID Status Reason Start Date Expiration Date Visits Re quested Visits Authorized [id number] 1 1 Encounter Details Date Type Department Care Team (Latest Contact Info) Description 12/20/2021 9:30 AM CDT - 12/20/2021 11:59 PM CDT Hospital Encounter [facility] [address] [place] [address] Nicole Rosas MD [address] [place] [address] Discharge Disposition: Home or Self Care [...] often do you attend chur ch or religion services? Never 08/21/2018 Do you [...] tablet TAKE 1 TABLET BY MOUTH EVERY SHARED SERVICES AND OUTSOURCING MANAGER 30 Tablet 06/01/2021 09/19/2023 Vascepa 1 [...] Visit [facility] Heart and Vascular - [facility] [address] [place] [address] Marlys Mayer MD [address] [place] [address] documented as of this encounter Visit Diagnoses [...] mL documented in this encounter Care Teams Treasury Analyst Relationship Specialty Start Date End Date Guerrero Middleton PA-C PCP - General Physician Patent Engineer 02/13/18 documented as of this encounter
--- OUTSIDE RECORDS SUMMARY | 2024-05-03 21:49 | XMS_ITS | Encounter Summary ---
Author Organization [facility] Address [address] Orozco: Epic Prelude ADT [place] [address] Care Team Providers Care Adhesive Bandage Machine Operator Name Role Phone Guerrero Middleton [...] 08/21/2018 How often do you attend [facility] or buddhist services? Never 08/21/2018 Do you belong to any clubs o r organizations such as zoroastrianism groups, unions, fraternal or athletic groups, or [...] Coronavirus/COVID-19? No / Unsure 07/03/2022 10:04 AM SCREEN TENDER HELPER documented as of this encounter Plan of Treatment Upcoming Encounters Date Type Department Care Team (Late st Contact Info) Description 09/14/2024 3:00 PM CDT Office Visit [facility] [address] [place] [address] Marlys Mayer MD [address] [place] [address] documented as of this encounter Visit Diagnoses Not on filedocumented in this encounter Care Teams Adhesive Bandage Machine Operator Relationship Specialty Start Date End Date Guerrero Middleton PA-C PCP - General Physician Route Carrier 02/13/18 documented as of this encounter
--- OUTSIDE RECORDS SUMMARY | 2024-05-03 21:49 | XMS_ITS | Encounter Summary ---
Author Organization [facility] Address [address] [place] [address] Care Team Providers Care Skin Drier Name Role Phone Guerrero Middleton PA-C Primary [...] you attend [facility] or worship services? Never 08/21/2018 Do you belong to [...] [facility] Heart and Vascular - [facility] [address] [place] [address] Marlys Mayer MD [address] [place] [address] documented as of this encounter Visit Diagnoses Not on filedocumented in this encounter Care Teams Skin Drier Relationship Specialty Start Date End Date Guerrero Middleton PA-C PCP - General Physician Track Grinder Operator 02/13/18 documented as of this encounter
--- OUTSIDE RECORDS SUMMARY | 2024-05-03 21:49 | XMS_ITS | Encounter Summary ---
Author Organization [facility] Address [address] [place] [address] Care Team Providers Care Cook Camp Name Role Phone Guerrero Middleton PA-C Primary Care Provide r Encounter Details Date Type Department Care Team (Late st Contact Info) Description 01/04/2022 Telephone [facility] Donor Services [facility] [address] [place] [address] Phoenix Riddle MD [address] [place] [address] Social History Tobacco Use Types [...] often do you attend chur ch or jehovah's witness services? Never 08/21/2018 Do [...] [facility] [place] [facility] [address] [place] [address] Marlys Mayer MD [address] [place] [address] documented as of this encounter Visit Diagnoses Not on filedocumented in this encounter Additional Health Concerns Infection Onset Date Last Indicated Resolved Time R/O GI Pathogen 09/19/2023 09/19/2023 09/21/2023 7 :33 AM CDT documented as of this encounter Care Teams Cook Camp Relationship Specialty Start Date End Date Guerrero Middleton PA-C PCP - General Physician Equity Analyst 02/13/18 documented as of this encounter
--- OUTSIDE RECORDS SUMMARY | 2024-05-03 21:49 | XMS_ITS | Encounter Summary ---
Author Organization [facility] Address [address] [place] [address] Care Team Providers Care Terminal Gauger Name Role Phone Guerrero Middleton PA-C Primary Care Provide r Reason for Visit * Reason Onset Date Comments petr rubin 09/13/2021 Encounter Details Date Type Department Care Team (Late st Contact Info) Description 09/13/2021 Telephone [facility] Donor Services [address] [address] Gloria Tristan, RN petr [facility] Social History Tobacco Use Types Packs/Day Years [...] and Vascular - [place] [address] [place] [address] Marlys Mayer MD [address] [place] [address] documented as of this encounter Visit Diagnoses Not on filedocumented in this encounter Additional Health Concerns Infection Onset Date Last Indicated Resolved Time R/O GI Pathogen 09/19/2023 09/19/2023 09/21/2023 7 :33 AM CDT documented as of this encounter Care Teams Terminal Gauger Relationship Specialty Start Date End Date Guerrero Middleton PA-C PCP - General Physician District Superintendent 02/13/18 documented as of this encounter
--- OUTSIDE RECORDS SUMMARY | 2024-05-03 21:49 | XMS_ITS | Encounter Summary ---
Author Organization [facility] Address [address] [place] [address] Care Team Providers Care Spring Assembler Supervisor Name Role Phone Guerrero Middleton PA-C Primary Care Provide r Encounter Details Date Type Department Care Team (Late st Contact Info) Description 03/14/2022 Telephone [facility] Donor Services [facility] [address] [place] [address] Phoenix Riddle MD [address] [place] [address] Social History Tobacco Use Types [...] How often do you attend chur or bahai services? Never 08/21/2018 Do you [...] [facility] Heart and Vascular - [place] [address] [place] [address] Marlys Mayer MD [address] [place] [address] documented as of this encounter Visit Diagnoses Not on filedocumented in this encounter Additional Health Concerns Infection Onset Date Last Indicated Resolved Time R/O GI Pathogen 09/19/2023 09/19/2023 09/21/2023 7 :33 AM CDT documented as of this encounter Care Teams Spring Assembler Supervisor Relationship Specialty Start Date End Date Guerrero Middleton PA-C PCP - General Physician Supervisor Purification 02/13/18 documented as of this encounter
--- OUTSIDE RECORDS SUMMARY | 2024-05-03 21:49 | XMS_ITS | Encounter Summary ---
Author Organization [facility] Address [address] [place] [address] Care Team Providers Care Community Service Representative Name Role Phone Guerrero Middleton PA-C Primary Care Provide r Reason for Visit * Auth/Cert (Routine) Specialty Diagnoses / Procedures Referred By Tequila t Referred To Contact Emergency Medicine [facility] Emergency Dept [address] [place] [address] Referral ID Status Reason Start Date Expiration Date Visits Re quested Visits Authorized [id number] 1 1 Encounter Details Date Type Department Care Team (Latest Contact Info) Description 09/23/2023 8:18 AM CDT - 09/23/2023 11:59 PM CDT Hospital Encounter [facility] Blood Flow [address] [place] [address] Parviz Sanabria MD [address] [place] [address] Discharge Disposition: Home or Self [...] as needed for Nausea/Emesis. 30 Tablet 09/26/20[address] crln[address]-[id number]-ezstr se DR ([place]) 36,000-114,000-180,00 0 unit capsule [...] [facility] ([facility] Heart and Vascular - [facility] [address] [place] [address] Marlys Mayer MD [address] [place], [place] [address] documented as of this encounter Procedures Procedure Name Priority Date/Time Associated Diagnosis Comments US CAROTID DOPPLER Routine 09/23/2023 9: 43 AM CDT documented in this encounter Results * US CAROTID DOPPLER (09/23/2023 9:43 AM CDT) Anatomical Region Laterality Modality Neck Ultrasound 09/23/2023 7:44 AM CDT Narrative 09/24/2023 6:21 AM CDT [facility] [address] [place] [address] [email or web address] Cerebrovascular Exam Carotid Duplex Patient: ? Casandra Jones MRN: ? [id number] Study ID: ?[id number] Gender: ?F : ? 1975 Age: ? 47 Race: ?CAU Height ? 165.1cm Study Date: ?09/23/2023 Weight: ?86.2kg Access. #: ? [id number] Account #: ? [id number] *Referring Physician:* Parviz Sanabria, Parviz Jordan *Ordering [...] +-----+-----+ Prepared and Electronically Authenticated Darío Augustine [id number]:21:06 Procedure Note Darío Augustine MD - 09/24/[address] [address] [email or web address] Cerebrovascular Exam Carotid Duplex Patient: Casandra Jones Study ID: [id number] Gender: F : 1975 Age: 47 Race: ANNEMARIE Height 165.1cm Study Date: 09/23/2023 Weight: 86.2kg Access. #: [id number] *Referring Physician:Parviz Arambula John Jacob *Ordering Physician:Parviz Arambula History: Syncope. PMH: No prior study is available for comparison.Risk factors: The patient is a current tobacco user. Hypertension. Diabetes mellitus. Hyperlipidemia. Coronary artery disease. Study data: [facility] Study status: Routine. Procedure: A vascular evaluation [...] +-----+-----+ Prepared and Electronically Authenticated Darío Augustine [id number]:21:06 Parviz Sanabria MD ORDERABLES documented in this encounter Visit Diagnoses Not on filedocumented in this encounter Care Teams Community Service Representative Relationship Specialty Start Date End Date Guerrero Middleton PA-C PCP - General Physician Water Restoration Technician 02/13/18 documented as of this encounter
--- OUTSIDE RECORDS SUMMARY | 2024-05-03 21:49 | XMS_ITS | Encounter Summary ---
Author Organization [facility] Address [address] Orozco: Epic Prelude ADT [place] [address] Care Team Providers Care Necktie Centralizing Machine Operator Name Role Phone Guerrero Middleton [...] 08/21/2018 How often do you attend [facility] or [facility] services? Never 08/21/2018 Do you [...] [facility] [address] [place] [address] Marlys Mayer MD [address] [place] [address] documented as of this encounter Visit Diagnoses Not on filedocumented in this encounter Care Teams Necktie Centralizing Machine Operator Relationship Specialty Start Date End Date Guerrero Middleton PA-C PCP - General Physician Work Measurement Engineer 02/13/18 documented as of this encounter
--- OUTSIDE RECORDS SUMMARY | 2024-05-03 21:49 | XMS_ITS | Encounter Summary ---
Author Organization [facility] Address [address] [place] [address] Care Team Providers Care Shoemaker Apprentice Name Role Phone Guerrero Middleton PA-C Primary Care Provide r Reason for Visit * Reason Onset Date Comments OTHER 11/21/2021 Encounter Details Date Type Department Care Team (Late st Contact Info) Description 11/21/2021 Telephone [facility] Oncology [address] [place] [address] Nicole Rosas MD [address] [place] [address] OTHER Social History Tobacco Use [...] How often do you attend chur or confucianism services? Never 08/21/2018 Do you [...] [facility] Heart [facility] - [facility] [address] [place] [address] Marlys Mayer MD [address] [place] [address] documented as of this encounter Visit Diagnoses Not on filedocumented in this encounter Additional Health Concerns Infection Onset Date Last Indicated Resolved Time R/O GI Pathogen 09/19/2023 09/19/2023 09/21/2023 7 :33 AM CDT documented as of this encounter Care Teams Shoemaker Apprentice Relationship Specialty Start Date End Date Guerrero Middleton PA-C PCP - General Physician Facing Baster Jumpbasting 02/13/18 documented as of this encounter
--- OUTSIDE RECORDS SUMMARY | 2024-05-03 21:49 | XMS_ITS | Encounter Summary ---
Author Organization [facility] Address [address] Orozco: Epic Prelude ADT [place] [address] Care Team Providers Care Registered Nurse Cardiovascular Icu Name Role Phone Guerrero Middleton PA-C Primary [...] How often do you attend [facility] or hoahaoism services? Never 08/21/2018 Do you [...] [facility] Heart [facility] - [facility] [address] [place] [address] Marlys Mayer MD [address] [place] [address] documented as of this encounter Visit Diagnoses Not on filedocumented in this encounter Care Teams Registered Nurse Cardiovascular Icu Relationship Specialty Start Date End Date Guerrero Middleton PA-C PCP - General Physician Physician Office Specialist 02/13/18 documented as of this encounter
--- OUTSIDE RECORDS SUMMARY | 2024-05-03 21:49 | XMS_ITS | Encounter Summary ---
Author Organization [facility] Address [address] [place] [address] Care Team Providers Care Linux Unix Engineer Name Role Phone Guerrero Middleton PA-C [...] How often do you attend [facility] or uatsdin services? Never 08/21/2018 Do [...] [facility] Heart and Vascular - [facility] [address] [place] [address] Marlys Mayer MD [address] [place] [address] documented as of this encounter Visit Diagnoses Not on filedocumented in this encounter Care Teams Linux Unix Engineer Relationship Specialty Start Date End Date Guerrero Middleton PA-C PCP - General Physician Sales Representative Health Insurance 02/13/18 documented as of this encounter
--- OUTSIDE RECORDS SUMMARY | 2024-05-03 21:49 | XMS_ITS | Encounter Summary ---
Author Organization [facility] Address [address] [place] [address] Care Team Providers Care Property And Equipment Clerk Name Role Phone Guerrero Middleton PA-C [...] often do you attend [facility] or latter-day services? Never 08/21/2018 Do you [...] 09/14/2024 3:00 PM CDT Office Visit [facility] Heart and Vascular - [facility] [address] [place] [address] Marlys Mayer MD [address] [place] [address] documented as of this encounter Visit Diagnoses Not on filedocumented in this encounter Care Teams Property And Equipment Clerk Relationship Specialty Start Date End Date Guerrero Middleton PA-C PCP - General Physician Form Builder 02/13/18 documented as of this encounter
--- OUTSIDE RECORDS SUMMARY | 2024-05-03 21:49 | XMS_ITS | Encounter Summary ---
Author Organization [facility] Address [address] [place] [address] Care Team Providers Care Sleep Lab Technologist Name Role Phone Guerrero Middleton PA-C Primary Care Provide r Reason for Visit * Reason Onset Date Comments discuss IOP services 09/21/2021 Encounter Details Date Type Department Care Team (Late st Contact Info) Description 09/21/2021 Telephone [place] [address] [place] [address] Hedy Garvin discuss IOP services [...] often do you attend chur ch or cheondoism services? Never 08/21/2018 Do you [...] Description 09/14/2024 3:00 PM CDT Office Visit [facility] Heart and Vascular - [facility] [address] [place] [address] Marlys Mayer MD [address] [place] [address] documented as of this encounter Visit Diagnoses Not on filedocumented in this encounter Care Teams Sleep Lab Technologist Relationship Specialty Start Date End Date Guerrero Middleton PA-C PCP - General Physician Returned Goods Inspector 02/13/18 documented as of this encounter
--- OUTSIDE RECORDS SUMMARY | 2024-05-03 21:49 | XMS_ITS | Encounter Summary ---
Author Organization [facility] Address [address] [place] [address] Care Team Providers Care Single Resource Boss Name Role Phone Guerrero Middleton PA-C [...] week 08/21/2018 How often do you attend [facility] or jew services? Never 08/21/2018 Do you [...] [facility] Heart [facility] V[facility] - [facility] [address] [place] [address] Marlys Mayer MD [address] [place] [address] documented as of this encounter Visit Diagnoses Not on filedocumented in this encounter Care Teams Single Resource Boss Relationship Specialty Start Date End Date Guerrero Middleton PA-C PCP - General Physician Cook Short Order 02/13/18 documented as of this encounter
--- OUTSIDE RECORDS SUMMARY | 2024-05-03 21:49 | XMS_ITS | Encounter Summary ---
Author Organization [facility] Address [address] [place] [address] Care Team Providers Care Superintendent Oil Well Services Name Role Phone Guerrero Middleton PA-C Primary Care Provide r Reason for Visit * Reason Comments ADS denial Encounter Details Date Type Department Care Team (Late st Contact Info) Description 01/26/2022 Abstract [facility] Endocrinology [address] [place] [address] Prudence Gates MD [address] [place] [address] Social History Tobacco Use Types Packs/Day Years [...] often do you attend chur ch or buddhist services? Never 08/21/2018 Do you [...] [facility] [address] [place] [address] Marlys Mayer MD [address] [place] [address] documented as of this encounter Visit Diagnoses Not on filedocumented in this encounter Care Teams Superintendent Oil Well Services Relationship Specialty Start Date End Date Guerrero Middleton PA-C PCP - General Physician Wholesale And Retail Merchant 02/13/18 documented as of this encounter
--- OUTSIDE RECORDS SUMMARY | 2024-05-03 21:49 | XMS_ITS | Encounter Summary ---
Author Organization [facility] Address [address] [place] [address] Care Team Providers Care Frame Gate Mortiser Operator Name Role Phone Guerrero Middleton PA-C Primary Care Provide r Reason for Visit * Reason Onset Date Comments Needs Appointment 09/06/2021 Encounter Details Date Type Department Care Team (Late st Contact Info) Description 09/06/2021 Telephone [facility] Donor Services [address] [address] Cathy Ken, CLAU Needs Appointment [...] [facility] Heart and Vascular - [facility] [address] [place] [address] Marlys Mayer MD [address] [place] [address] documented as of this encounter Visit Diagnoses Not on filedocumented in this encounter Care Teams Frame Gate Mortiser Operator Relationship Specialty Start Date End Date Guerrero Middleton PA-C PCP - General Physician Metal Off Bearer 02/13/18 documented as of this encounter
--- OUTSIDE RECORDS SUMMARY | 2024-05-03 21:50 | XMS_ITS | Encounter Summary ---
Author Organization [facility] Address [address] [place] [address] Care Team Providers Care Regional Engineer Name Role Phone Guerrero Middleton PA-C Primary Care Provide r Encounter Details Date Type Department Care Team (Latest Contact Info) Description 04/10/2021 Orders Only [facility] Donor Services [facility] [address] [place] [address] Phoenix Riddle MD [address] [facility] [place] [address] Hypertriglyceridemia (Primary Dx) Social History [...] COVID-19? No / Unsure 04/10/2021 9:25 AM RENOVATION PLANT SUPERVISOR documented as of this encounter Plan of Treatment Upcoming Encounters Date Type Department Care Team (Late st Contact Info) Description 09/14/2024 3:00 PM CDT Office Visit [facility] - [facility] [address] [place] [address] Marlys Mayer MD [address] [place] [address] documented as of this encounter Results * (ABNORMAL) TRIGLYCERIDE (04/10/2021 10:57 AM RENOVATION PLANT SUPERVISOR) TRIGLYCERIDE 2,535(H) <150 mg/dL 04/10/2021 12:11 PM RENOVATION PLANT SUPERVISOR [facility] Blood Collection / Unknown 04/10/2021 10:57 AM RENOVATION PLANT SUPERVISOR 04/10/2021 11:06 AM RENOVATION PLANT SUPERVISOR Narrative [facility] - 04/10/2021 12:11 PM RENOVATION PLANT SUPERVISOR TRIGLYCERIDES ? mg/dL Normal ?< 150 Borderline High ?150 - 199 High ? 200 - 499 Very High ? >= 500 Based on AHA/NCEP Guidelines. Phoenix Riddle MD CHEMISTRY ORDERABLE S [facility]# [id number] [address] [facility] [place] [address] documented in this encounter Visit Diagnoses Diagnosis Hypertriglyceridemia- Primary Pure hyperglyceridemia documented in this encounter Additional Health Concerns Assessment Noted Time PHQ-9 Depression Total Score: 1 08/11/19 21 6:30 PM CDT documented as of this encounter Care Teams Regional Engineer Relationship Specialty Start Date End Date Guerrero Middleton PA-C PCP - General Physician Copper Miner 02/13/18 documented as of this encounter
--- OUTSIDE RECORDS SUMMARY | 2024-05-03 21:50 | XMS_ITS | Encounter Summary ---
Author Organization [facility] Address [address] [place] [address] Care Team Providers Care Cell Pourer Name Role Phone Guerrero Middleton PA-C Primary Care Provide r Encounter Details Date Type Department Care Team (Latest Contact Info) Description 06/14/2021 9:30 AM MEDICAL SUPPORT SPECIALIST - 06/14/2021 11:59 PM [facility] Hospital Encounter [facility] Donor Services [facility] [address] [place] [address] Phoenix Riddle MD [address] [facility] [place] [address] Discharge Disposition: Home or Self [...] COVID-19? No / Unsure 06/14/2021 9:19 AM MEDICAL SUPPORT SPECIALIST documented as of this encounter Last Filed Vital Signs Vital Sign Reading Time Taken Comments Blood Pressure 115/74 06/14/2021 11:15 AM MEDICAL SUPPORT SPECIALIST Pulse 90 06/14/2021 11:15 AM MEDICAL SUPPORT SPECIALIST Temperature 36.6 ??C (97.9 ??F) 06/14/2021 11:[address] Respiratory Rate 16 06/14/2021 11:15 AM MEDICAL SUPPORT SPECIALIST Oxygen Saturation - - Inhaled Oxygen Concentration [...] tablet TAKE 1 TABLET BY MOUTH EVERY SERVICE STATION OPERATOR 30 Tablet 06/01/2021 09/19/2023 Vascepa 1 [...] Progress Notes * Sharri Juarez RN - 06/14/2021 9:30 AM CST Plasma exchange completed today using R and L chest BARD ports for access and return. Used 5% Albumin as replacement fluid for a 1.0 volume exchange with a 100% fluid balance. Patient tolerated the procedure well. The next plasma exchange is scheduled for June 28, 2021 at 0930. 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 ?? Interval history:??Patient states she has been predominantly feeling well, some mild abdominal painlast night but resolved by morning. She states her health habits and diet have been consistent overthe past several weeks. ?? Procedure note: 1.0 volume plasma exchange [...] Neuro: - Alert and Oriented ?? Labs: 05/05/21 WBC 9.3 hgb 13.6 hct 37.2 ??PLT 222 ??05/05/21 preprocedure triglycerides: >4425 mg/dL 05/05/21 postprocedure triglycerides: 2667 mg/dL 05/25/21 preprocedure triglycerides: ??not resulted; unable to evaluate due to lipidemia 05/25/21 postprocedure triglycerides: ??3,973 mg/dL 06/07/21 preprocedure triglycerides: 1377 mg/dL 06/07/21 postproedeure triglycerides: 518 mg/dL 06/14/21 preprocedure triglycerides: >4425 mg/dL 06/14/21 postprocedure triglycerides: 2324 mg/dL? A&P: 1. 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 2. Continue maintenance PLEX with 1.0 volume exchange, 5% albumin replacement, 100% fluid volume, 2g calcium gluconate during procedure on a weekly basis, or more frequent based on symptoms and triglyceride levels. 3. Next procedure??scheduled 06/28/21. ?? I have seen and examined the patient, reviewed pertinent notes and records, and remained immediately available throughout the procedure. ?? Phoenix Riddle MD Component Assembler, therapeutic apheresis service [phone] CAL SUPPORT SPECIALIST documented in this encounter Plan of Treatment Upcoming Encounters Date Type Department Care Team (Late st Contact Info) Description 09/14/2024 3:00 PM CDT Office Visit [facility] and V[facility] - [place] [address] [place] [id number] Marlys Mayer MD [address] [place] [address] documented as of this encounter Procedures Procedure Name Priority Date/Time Associated Diagnosis Comments TRIGLYCERIDE Routine 06/14/2021 11:21 AM MEDICAL SUPPORT SPECIALIST Hypertriglyceridemia TRIGLYCERIDE Routine 06/14/2021 9:49 AM MEDICAL SUPPORT SPECIALIST Hypertriglyceridemia documented in this encounter Results * (ABNORMAL) TRIGLYCERIDE (06/14/2021 11:21 AM MEDICAL SUPPORT SPECIALIST) TRIGLYCERIDE 2,324(H) <150 mg/dL 06/14/2021 12:27 PM MEDICAL SUPPORT SPECIALIST [facility] [employer] [facility] Blood Collection / Unknown 06/14/2021 11:21 AM MEDICAL SUPPORT SPECIALIST 06/14/2021 11:28 AM MEDICAL SUPPORT SPECIALIST Narrative [facility] [employer] [facility] - 06/14/2021 12:27 PM MEDICAL SUPPORT SPECIALIST TRIGLYCERIDES ? mg/dL Normal ?< 150 Borderline High ?150 - 199 High ? 200 - 499 Very High ? >= 500 Based on AHA/NCEP Guidelines. Phoenix Riddle MD CHEMISTRY ORDERABLE S [facility] [employer] [facility] [id number] [address] [place] [facility] [place] [address] * (ABNORMAL) TRIGLYCERIDE (06/14/2021 9:49 AM MEDICAL SUPPORT SPECIALIST) TRIGLYCERIDE >4,425(H) <150 mg/dL 06/14/2021 10:43 AM MEDICAL SUPPORT SPECIALIST [facility] [employer] [facility] Blood Collection / Unknown 06/14/2021 9:49 AM MEDICAL SUPPORT SPECIALIST 06/14/2021 9:51 AM MEDICAL SUPPORT SPECIALIST Narrative [facility] LABORATORY SERVICES - [facility] - 06/14/2021 10:43 AM MEDICAL SUPPORT SPECIALIST TRIGLYCERIDES ? mg/dL Normal ?< 150 Borderline High ?150 - 199 High ? 200 - 499 Very High ? >= 500 Based on AHA/NCEP Guidelines. Phoenix Riddle MD CHEMISTRY ORDERABLE S [facility] [id number] [address] [place] [address] documented in this encounter Visit Diagnoses Diagnosis Hypertriglyceridemia- Primary Pure hyperglyceridemia documented in this encounter Administered Medications Inactive Administered Medications - up to 3 most recent administrations Medication Order MAR Action Action Date Dose Rate Site calcium GLUCONATE 2,000 mg in sodium chloride (iso-osmotic) 100 mL IVPB 2,000 mg, IV, ONE TIME ONLY, 1 dose, On Sat06/14/21 at 0900, Routine New Bag 06/14/2021 9:57 AM MEDICAL SUPPORT SPECIALIST 2,000 mg 100 mL /hr heparin, porcine lock flush (pf) 100 unit/mL injection 500 Units 500 Units, IV, ONE TIME ONLY, 1 dose, On Sat06/14/21 at 0900, Routine, Tube to station 516, blood bank Given 06/14/2021 11:12 AM MEDICAL SUPPORT SPECIALIST 500 Units heparin, porcine lock flush (pf) 100 unit/mL injection 500 Units 500 Units, IV, ONE TIME ONLY, 1 dose, On Sat06/14/21 at 0900, Routine, Tube to station 516, blood bank Given 06/14/2021 11:09 AM MEDICAL SUPPORT SPECIALIST 500 Units sodium chloride flush injection 10 mL 10 mL, IV, ONE TIME ONLY, 1 dose, On Sat06/14/21 at 0900, Routine Given 06/14/2021 11:11 AM MEDICAL SUPPORT SPECIALIST 10 mL sodium chloride flush injection 10 mL 10 mL, IV, ONE TIME ONLY, 1 dose, On Sat06/14/21 at 0900, Routine Given 06/14/2021 11:12 AM MEDICAL SUPPORT SPECIALIST 10 mL sodium chloride flush injection 20 mL 20 mL, IV, ONE TIME ONLY, 1 dose, On Sat06/14/21 at 0900, Routine Given 06/14/2021 11:08 AM MEDICAL SUPPORT SPECIALIST 20 mL documented in this encounter Additional Health Concerns Assessment Noted Time PHQ-9 Depression Total Score: 1 08/11/19 21 6:30 PM CDT documented as of this encounter Care Teams Cell Pourer Relationship Specialty Start Date End Date Guerrero Middleton PA-C PCP - General Physician Database Programmer 02/13/18 documented as of this encounter
--- OUTSIDE RECORDS SUMMARY | 2024-05-03 21:50 | XMS_ITS | Encounter Summary ---
Author Organization [facility] Address [address] O[address]co: Epic Prelude ADT [place] [address] Care Team Providers Care Digital Marketing Specialist Name Role Phone Guerrero Middleton PA-C [...] week 08/21/2018 How often do you attend [facility] or yarsani services? Never 08/21/2018 Do you [...] COVID-19? No / Unsure 06/07/2021 8:59 AM AUDIO ENGINEER documented as of this encounter Plan of Treatment Upcoming Encounters Date Type Department Care Team (Late st Contact Info) Description 09/14/2024 3:00 PM CDT Office Visit [facility] [address] [address] [place] [address] Marlys Mayer MD [address] [place], [place] [phone] documented as of this encounter Visit Diagnoses Not on filedocumented in this encounter Additional Health Concerns Assessment Noted Time PHQ-9 Depression Total Score: 1 08/11/19 21 6:30 PM CDT documented as of this encounter Care Teams Digital Marketing Specialist Relationship Specialty Start Date End Date Guerrero Middleton PA-C PCP - General Physician Server Security Administrator 02/13/18 documented as of this encounter
--- OUTSIDE RECORDS SUMMARY | 2024-05-03 21:50 | XMS_ITS | Encounter Summary ---
Author Organization [facility] Address [address] Orozco: Epic Prelude ADT [place] [address] Care Team Providers Care Parking Inspector Name Role Phone Guerrero Middleton PA-C [...] do you attend [facility] or scientologist services? Never 08/21/2018 Do you [...] COVID-19? No / Unsure 05/05/2021 9:01 AM COMMUTATOR V RING ASSEMBLER documented as of this encounter Plan of Treatment Upcoming Encounters Date Type Department Care Team (Late st Contact Info) Description 09/14/2024 3:00 PM CDT Office Visit [facility] [address] [place] [address] Marlys Mayer MD [address] [place], [place] [id number] documented as of this encounter Visit Diagnoses Not on filedocumented in this encounter Additional Health Concerns Assessment Noted Time PHQ-9 Depression Total Score: 1 08/11/19 21 6:30 PM CDT documented as of this encounter Care Teams Parking Inspector Relationship Specialty Start Date End Date Guerrero Middleton PA-C PCP - General Physician Team Physician 02/13/18 documented as of this encounter
--- OUTSIDE RECORDS SUMMARY | 2024-05-03 21:50 | XMS_ITS | Encounter Summary ---
Author Organization [facility] Address [address] [place] [address] Care Team Providers Care Net Software Architect Name Role Phone Guerrero Middleton PA-C Primary Care Provide r Encounter Details Date Type Department Care Team (Latest Contact Info) Description 05/05/2021 9:05 AM TRANSIT MAN - 05/05/2021 11:59 PM [facility] Hospital Encounter [facility] Donor Services [id number] [place] [address] Guerrero Middleton PA-C [address] [place] [address] Discharge Disposition: Home or Self [...] COVID-19? No / Unsure 05/05/2021 9:01 AM TRANSIT MAN documented as of this encounter Last Filed Vital Signs Vital Sign Reading Time Taken Comments Blood Pressure 131/83 05/05/2021 10:53 AM TRANSIT MAN Pulse 80 05/05/2021 10:53 AM TRANSIT MAN Temperature 37.3 ??C (99.2 ??F) 05/05/2021 10:[address] Respiratory Rate 18 05/05/2021 10:53 AM TRANSIT MAN Oxygen Saturation - - Inhaled Oxygen Concentration [...] tablet TAKE 1 TABLET BY MOUTH EVERY CHAIR AND COUCH MAKER 30 Tablet 5 12/07/2020 06/01/2021 Vascepa 1 [...] procedure well. Next procedure scheduled for 05/09/2021. SIT MAN * Nicole Mondragon MD - 05/05/2021 9:30 [...] throughout the procedure. ?? Nicole Mondragon MD Tufting Machine Fixer, therapeutic apheresis service [phone] SIT MAN documented in this encounter Plan of Treatment Upcoming Encounters Date Type Department Care Team (Late st Contact Info) Description 09/14/2024 3:00 PM CDT Office Visit [facility] [address] [place] [address] Marlys Mayer MD [address] [place] [address] documented as of this encounter Procedures Procedure Name Priority Date/Time Associated Diagnosis Comments TRIGLYCERIDE Routine 05/05/2021 11:03 AM TRANSIT MAN Hypertriglyceridemi a CBC WITHOUT DIFFERENTIAL Routine 05/05/2021 9:40 AM TRANSIT MAN Hypertriglyceridemi a TRIGLYCERIDE Routine 05/05/2021 9:38 AM TRANSIT MAN Hypertriglyceridemi a documented in this encounter Results * (ABNORMAL) TRIGLYCERIDE (05/05/2021 11:03 AM TRANSIT MAN) Pathologist [facility] TRIGLYCERIDE 2,667(H) <150 mg/dL 05/05/2021 11:51 AM [facility] [employer] [facility] Blood Venipuncture / Unknown 05/05/2021 11:03 AM TRANSIT MAN 05/05/2021 11:03 AM TRANSIT MAN [facility] [employer] [facility] - 05/05/2021 11:51 AM TRANSIT MAN TRIGLYCERIDES ? mg/dL Normal ?< 150 Borderline High ?150 - 199 High ? 200 - 499 Very High ? >= 500 Based on AHA/NCEP Guidelines. Nicole Rosas MD CHEMISTRY YONI SERRANO [facility] [employer] [facility]# [id number] [address] [place] [address] * (ABNORMAL) CBC WITHOUT DIFFERENTIAL (05/05/2021 9:40 AM TRANSIT MAN) Pathologist [facility] WBC 9.3 4.0 - 9.8 K/uL 05/05/2021 9:44 AM [facility] [employer] [facility] RBC 4.14 3.90 - 4.90 M/uL 05/05/2021 9:44 AM [facility] [employer] [facility] HEMOGLOBIN 13.6 11.8 - 14.8 g/dL 05/05/2021 9:44 AM [facility] [employer] [facility] HEMATOCRIT 37.2 35.5 - 44.0 % 05/05/2021 9:44 AM [facility] [employer] [facility] MCV 89.9 82.0 - 99.0 fL 05/05/2021 9:44 AM TRANSIT MAN [facility] [employer] [facility] MCH 32.9(H) 27.2 - 32.6 pg 05/05/2021 9:44 AM [facility] [employer] [facility] MCHC 36.6(H) 31.5 - 35.5 g/dL 05/05/2021 9:44 AM [facility] PLATELETS 222 140 - 350 K/uL 05/05/2021 9:44 AM [facility] [employer] [facility] MPV 9.2(L) 9.3 - 12.4 fL 05/05/2021 9:44 AM [facility] [employer] [facility] RDW 14.4 11.5 - 14.5 % 05/05/2021 9:44 AM [facility] [employer] [facility] RDW-STDEV 48.0 37.1 - 48.7 fL 05/05/2021 9:44 AM [facility] [employer] [facility] Blood Venipuncture / Unknown 05/05/2021 9:40 AM TRANSIT MAN 05/05/2021 9:40 AM TRANSIT MAN Nicole Rosas MD HEMATOLOGY ORD ERABLES [facility] [employer] [facility]# [id number] [address] [facility] [place] [address] * (ABNORMAL) TRIGLYCERIDE (05/05/2021 9:38 AM TRANSIT MAN) Pathologist [facility] TRIGLYCERIDE >4,425(H) <150 mg/dL 05/05/2021 2:21 PM TRANSIT MAN [facility] [employer] [facility] Blood 05/05/2021 9:38 AM TRANSIT MAN 05/05/2021 9:40 AM TRANSIT MAN Narrative [facility] [employer] [facility] - 05/05/2021 2:21 PM TRANSIT MAN TRIGLYCERIDES ? mg/dL Normal ?< 150 Borderline High ?150 - 199 High ? 200 - 499 Very High ? >= 500 Based on AHA/NCEP Guidelines. Phoenix Riddle MD CHEMISTRY ORDERABLE S [facility]# [id number] [address] [place] [address] documented in this encounter Visit Diagnoses Diagnosis [...] 0930, Routine New Bag 05/05/2021 9:11 AM TRANSIT MAN 2,000 mg 50 mL/hr heparin, porcine (pf) 10 unit/mL IV syringe 20 Units 20 Units, IV, ONE TIME ONLY, 1 dose, On Sat05/05/21 at 0930, Routine Given 05/05/2021 10:37 AM TRANSIT MAN 20 Units heparin, porcine lock flush (pf) 100 unit/mL injection 500 Units 500 Units, IV, ONE TIME ONLY, 1 dose, On Sat05/05/21 at 0930, Routine Given 05/05/2021 10:43 AM TRANSIT MAN 500 Units heparin, porcine lock flush (pf) 100 unit/mL injection 500 Units 500 Units, IV, ONE TIME ONLY, 1 dose, On Sat05/05/21 at 1045, Routine Given 05/05/2021 10:41 AM TRANSIT MAN 500 Units sodium chloride flush injection 10 mL 10 mL, IV, ONE TIME ONLY, 1 dose, On Sat05/05/21 at 0930, Routine Given 05/05/2021 10:36 AM TRANSIT MAN 10 mL sodium chloride flush injection 10 mL 10 mL, IV, ONE TIME ONLY, 1 dose, On Sat05/05/21 at 0930, Routine Given 05/05/2021 10:42 AM TRANSIT MAN 10 mL sodium chloride flush injection 20 mL 20 mL, IV, ONE TIME ONLY, 1 dose, On Sat05/05/21 at 1045, Routine Given 05/05/2021 10:40 AM TRANSIT MAN 20 mL documented in this encounter Additional Health Concerns Assessment Noted Time PHQ-9 Depression Total Score: 1 08/11/19 21 6:30 PM CDT documented as of this encounter Care Teams Net Software Architect Relationship Specialty Start Date End Date Guerrero Middleton PA-C PCP - General Physician Engraver Tender 02/13/18 documented as of this encounter
--- OUTSIDE RECORDS SUMMARY | 2024-05-03 21:50 | XMS_ITS | Encounter Summary ---
Author Organization [facility] Address [address]co: Epic Prelude ADT [place] [address] Care Team Providers Care Matrix Supervisor Name Role Phone Guerrero Middleton PA-C [...] do you attend [facility] or restoration services? Never 08/21/2018 Do you [...] [facility] [address] [address] [place] [address] Marlys Mayer MD [address] [place], [place] [phone] documented as of this encounter Visit Diagnoses Not on filedocumented in this encounter Additional Health Concerns Assessment Noted Time PHQ-9 Depression Total Score: 1 08/11/19 21 6:30 PM CDT documented as of this encounter Care Teams Matrix Supervisor Relationship Specialty Start Date End Date Guerrero Middleton PA-C PCP - General Physician Car Construction Superintendent 02/13/18 documented as of this encounter
--- OUTSIDE RECORDS SUMMARY | 2024-05-03 21:50 | XMS_ITS | Encounter Summary ---
Author Organization [facility] Address [address] [place] [address] Care Team Providers Care Grant Coordinator Name Role Phone Guerrero Middleton PA-C Primary Care Provide r Encounter Details Date Type Department Care Team (Latest Contact Info) Description 06/07/2021 9:16 AM RADIATION ONCOLOGIST - 06/07/2021 11:59 PM [facility] Hospital Encounter [facility] Donor Services [facility] [address] [place] [address] Phoenix Riddle MD [address] [facility] [place] [address] Discharge Disposition: Home or Self [...] COVID-19? No / Unsure 06/07/2021 8:59 AM RADIATION ONCOLOGIST documented as of this encounter Last Filed Vital Signs Vital Sign Reading Time Taken Comments Blood Pressure 115/87 06/07/2021 11:07 AM RADIATION ONCOLOGIST Pulse 95 06/07/2021 11:07 AM RADIATION ONCOLOGIST Temperature 36.8 ??C (98.2 ??F) 06/07/2021 11:[address] Respiratory Rate 18 06/07/2021 11:07 AM RADIATION ONCOLOGIST Oxygen Saturation 100% 06/07/2021 11:07 AM RADIATION ONCOLOGIST Inhaled Oxygen Concentration - - Weight - [...] tablet TAKE 1 TABLET BY MOUTH EVERY FIGHT MANAGER 30 Tablet 06/01/2021 09/19/2023 Vascepa 1 [...] available throughout the procedure. Phoenix Riddle MD Pickle Pumper, therapeutic apheresis service [phone] ATION ONCOLOGIST * Melodie Vasquez RN - 06/07/2021 9:30 AM CST Plasma exchange completed today using L/R Bard ports for draw and return. 1.0 volume, 100% fluid balance using Albumin as replacement fluid completed. 2 grams calcium gluconate given intra procedure.Dr. Riddle visited pt chairside. Procedure tolerated well. Next procedure scheduled for 06/14/2021. Pt discharged ambulatory in stable condition. ATION ONCOLOGIST documented in this encounter Plan of Treatment Upcoming Encounters Date Type Department Care Team (Late st Contact Info) Description 09/14/2024 3:00 PM CDT Office Visit [facility] [address] [place] [address] Marlys Mayer MD [address] [place] [address] documented as of this encounter Procedures Procedure Name Priority Date/Time Associated Diagnosis Comments TRIGLYCERIDE Routine 06/07/2021 11:01 AM RADIATION ONCOLOGIST Hypertriglyceridemia TRIGLYCERIDE Routine 06/07/2021 9:29 AM RADIATION ONCOLOGIST Hypertriglyceridemia documented in this encounter Results * (ABNORMAL) TRIGLYCERIDE (06/07/2021 11:01 AM RADIATION ONCOLOGIST) TRIGLYCERIDE 518(H) <150 mg/dL 06/07/2021 12:[address] [facility] Blood Venipuncture / Unknown 06/07/2021 11:01 AM RADIATION ONCOLOGIST 06/07/2021 11:30 AM RADIATION ONCOLOGIST [facility] - 06/07/2021 12:16 PM RADIATION ONCOLOGIST TRIGLYCERIDES ? mg/dL Normal ?< 150 Borderline High ?150 - 199 High ? 200 - 499 Very High ? >= 500 Based on AHA/NCEP Guidelines. Phoenix Riddle MD CHEMISTRY ORDERABLE S [facility]# [id number] [address] [facility] [place] [address] * (ABNORMAL) TRIGLYCERIDE (06/07/2021 9:29 AM RADIATION ONCOLOGIST) TRIGLYCERIDE 1,377(H) <150 mg/dL 06/07/2021 11:08 AM [facility] [employer] [facility] Blood Venipuncture / Unknown 06/07/2021 9:29 AM RADIATION ONCOLOGIST 06/07/2021 10:04 AM RADIATION ONCOLOGIST [facility] - 06/07/2021 11:08 AM RADIATION ONCOLOGIST TRIGLYCERIDES ? mg/dL Normal ?< 150 Borderline High ?150 - 199 High ? 200 - 499 Very High ? >= 500 Based on AHA/NCEP Guidelines. Phoenix Riddle MD CHEMISTRY ORDERABLE S [facility]# [id number] [address] [place] [address] documented in this encounter Visit Diagnoses Diagnosis [...] 0930, Routine New Bag 06/07/2021 10:07 AM RADIATION ONCOLOGIST 2,000 mg 100 mL/hr heparin, porcine (pf) 10 unit/mL IV syringe 20 Units 20 Units, IV, ONE TIME ONLY, 1 dose, On Sat06/07/21 at 0930, Routine, Tube to station 516, blood bank Given 06/07/2021 10:21 AM RADIATION ONCOLOGIST 20 Units heparin, porcine lock flush (pf) 100 unit/mL injection 500 Units 500 Units, IV, ONE TIME ONLY, 1 dose, On Sat06/07/21 at 0930, Routine, Tube to station 516, blood bank Given 06/07/2021 10:22 AM RADIATION ONCOLOGIST 500 Units heparin, porcine lock flush (pf) 100 unit/mL injection 500 Units 500 Units, IV, ONE TIME ONLY, 1 dose, On Sat06/07/21 at 0930, Routine, Tube to station 516, blood bank Given 06/07/2021 10:23 AM RADIATION ONCOLOGIST 500 Units sodium chloride flush injection 10 mL 10 mL, IV, ONE TIME ONLY, 1 dose, On Sat06/07/21 at 0930, Routine Given 06/07/2021 10:21 AM RADIATION ONCOLOGIST 10 mL sodium chloride flush injection 10 mL 10 mL, IV, ONE TIME ONLY, 1 dose, On Sat06/07/21 at 0930, Routine Given 06/07/2021 10:22 AM RADIATION ONCOLOGIST 10 mL sodium chloride flush injection 20 mL 20 mL, IV, ONE TIME ONLY, 1 dose, On Sat06/07/21 at 0930, Routine Given 06/07/2021 10:22 AM RADIATION ONCOLOGIST 20 mL documented in this encounter Additional Health Concerns Assessment Noted Time PHQ-9 Depression Total Score: 1 08/11/19 21 6:30 PM CDT documented as of this encounter Care Teams Grant Coordinator Relationship Specialty Start Date End Date Guerrero Middleton PA-C PCP - General Physician Ex Assistant/Program Director 02/13/18 documented as of this encounter
--- OUTSIDE RECORDS SUMMARY | 2024-05-03 21:50 | XMS_ITS | Encounter Summary ---
Author Organization [facility] Address [address] [place] [address] Care Team Providers Care Occupational Therapist Assistant Name Role Phone Guerrero Middleton PA-C Primary Care Provide r Encounter Details Date Type Department Care Team (Latest Contact Info) Description 04/10/2021 9:30 AM COMPUTER TRAINER - 04/10/2021 11:59 PM [facility] Hospital Encounter [facility] Donor Services [address] [address] Nicole Rosas MD [address] [place] [address] Discharge Disposition: Home or Self Care [...] COVID-19? No / Unsure 04/10/2021 9:25 AM COMPUTER TRAINER documented as of this encounter Last Filed Vital Signs Vital Sign Reading Time Taken Comments Blood Pressure 106/70 04/10/2021 10:51 AM COMPUTER TRAINER Pulse 83 04/10/2021 10:51 AM COMPUTER TRAINER Temperature 36.9 ??C (98.4 ??F) 04/10/2021 10:[address] Respiratory Rate 16 04/10/2021 10:51 AM COMPUTER TRAINER Oxygen Saturation - - Inhaled Oxygen Concentration [...] tablet TAKE 1 TABLET BY MOUTH EVERY OPTICS MANUFACTURING TECHNICIAN 30 Tablet 5 12/07/2020 06/01/2021 Vascepa 1 [...] Progress Notes * Delroy Tristan RN - 04/10/2021 9:30 AM CST Plasma exchange completed today using L/R chest bard port for draw and return. 1.0 volume, 100% fluid balance using 5% albumin as replacement fluid completed. 2 grams calcium gluconate given intra procedure. Patient tolerated procedure well. Next procedure scheduled for 04/19/2021. 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 ?? Interval history:?Patient has no concerns or complaints. At baseline. ?? Procedure note: 1.0 volume plasma [...] Postprocedure triglycerides: ??1419 mg/dL 03/20/21 Pre triglycerides: ??2913 mg/dL 03/20/21 Post triglycerides: ??1116 mg/dL 04/05/21 Pre triglyceridedes: >4425 mg/dL 04/05/21 Post triglycerides: 1,831 mg/dL 04/10/21 Pre triglycerides: >4425 mg/dL 04/10/21 Post triglycerides: 2535 mg/dL ? A&P: 1. 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 2. Continue maintenance PLEX with 1.0 volume exchange, 5% albumin replacement, 100% fluid volume, 2g calcium gluconate during procedure on a weekly basis, or more frequent based on symptoms and triglyceride levels. 3. Next procedure??scheduled??04/19/21 ?? I have seen and examined the patient, reviewed pertinent notes and records, and remained immediately available throughout the procedure. ?? Phoenix Riddle MD Dryer And Washer Mechanic, therapeutic apheresis service [phone] UTER TRAINER documented in this encounter Plan of Treatment Upcoming Encounters Date Type Department Care Team (Late st Contact Info) Description 09/14/2024 3:00 PM CDT Office Visit [facility] [address] [facility] [address] [place] [phone] Marlys Mayer MD [address] [place], [place] [phone] documented as of this encounter Procedures Procedure Name Priority Date/Time Associated Diagnosis Comments TRIGLYCERIDE Stat 04/10/2021 10:57 AM COMPUTER TRAINER Hypertriglyceridemia TRIGLYCERIDE Routine 04/10/2021 9:46 AM COMPUTER TRAINER Hypertriglyceridemia documented in this encounter Results * (ABNORMAL) TRIGLYCERIDE (04/10/2021 10:57 AM COMPUTER TRAINER) TRIGLYCERIDE 2,535(H) <150 mg/dL 04/10/2021 12:11 PM COMPUTER TRAINER [facility] [employer] [facility] Blood Collection / Unknown 04/10/2021 10:57 AM COMPUTER TRAINER 04/10/2021 11:06 AM COMPUTER TRAINER Narrative [facility] [employer] [facility] - 04/10/2021 12:11 PM COMPUTER TRAINER TRIGLYCERIDES ? mg/dL Normal ?< 150 Borderline High ?150 - 199 High ? 200 - 499 Very High ? >= 500 Based on AHA/NCEP Guidelines. Phoenix Riddle MD CHEMISTRY ORDERABLE S [facility] [employer] [facility] CLIA# [id number] [address] [place] [address] * (ABNORMAL) TRIGLYCERIDE (04/10/2021 9:46 AM COMPUTER TRAINER) TRIGLYCERIDE >4,425(H) <150 mg/dL 04/10/2021 10:[address] [facility] Blood Collection / Unknown 04/10/2021 9:46 AM COMPUTER TRAINER 04/10/2021 9:48 AM COMPUTER TRAINER Narrative [facility] - 04/10/2021 10:58 AM COMPUTER TRAINER TRIGLYCERIDES ? mg/dL Normal ?< 150 Borderline High ?150 - 199 High ? 200 - 499 Very High ? >= 500 Based on AHA/NCEP Guidelines. Phoenix Riddle MD CHEMISTRY ORDERABLE S [facility] CLIA# [id number] [address] [place] [address] documented in this encounter Visit Diagnoses Diagnosis Hypertriglyceridemia- Primary Pure hyperglyceridemia Mixed hyperlipidemia documented in this encounter Administered Medications Inactive Administered Medications - up to 3 most recent administrations Medication Order MAR Action Action Date Dose Rate Site calcium GLUCONATE 2,000 mg in sodium chloride (iso-osmotic) 100 mL IVPB 2,000 mg, IV, ONE TIME ONLY, 1 dose, On Sat04/10/21 at 0930, Routine New Bag 04/10/2021 9:28 AM COMPUTER TRAINER 2,000 mg 50 mL /hr heparin, porcine (pf) 10 unit/mL IV syringe 20 Units 20 Units, IV, ONE TIME ONLY, 1 dose, On Sat04/10/21 at 0930, Routine Given 04/10/2021 10:32 AM COMPUTER TRAINER 20 Units heparin, porcine lock flush (pf) 100 unit/mL injection 500 Units 500 Units, IV, ONE TIME ONLY, 1 dose, On Sat04/10/21 at 0930, Routine Given 04/10/2021 10:33 AM COMPUTER TRAINER 500 Units heparin, porcine lock flush (pf) 100 unit/mL injection 500 Units 500 Units, IV, ONE TIME ONLY, 1 dose, On Sat04/10/21 at 0815, Routine Given 04/10/2021 10:30 AM COMPUTER TRAINER 500 Units sodium chloride flush injection 10 mL 10 mL, IV, ONE TIME ONLY, 1 dose, On Sat04/10/21 at 0930, Routine Given 04/10/2021 10:31 AM COMPUTER TRAINER 10 mL sodium chloride flush injection 10 mL 10 mL, IV, ONE TIME ONLY, 1 dose, On Sat04/10/21 at 0930, Routine Given 04/10/2021 10:32 AM COMPUTER TRAINER 10 mL sodium chloride flush injection 20 mL 20 mL, IV, ONE TIME ONLY, 1 dose, On Sat04/10/21 at 0815, Routine Given 04/10/2021 10:30 AM COMPUTER TRAINER 20 mL documented in this encounter Additional Health Concerns Assessment Noted Time PHQ-9 Depression Total Score: 1 08/11/19 21 6:30 PM CDT documented as of this encounter Care Teams Occupational Therapist Assistant Relationship Specialty Start Date End Date Guerrero Middleton PA-C PCP - General Physician Supervisor Buffing And Pasting 02/13/18 documented as of this encounter
--- OUTSIDE RECORDS SUMMARY | 2024-05-03 21:50 | XMS_ITS | Encounter Summary ---
Author Organization [facility] Address [address] Orozco: Epic Prelude ADT [place] [address] Care Team Providers Care Automatic Drill Operator Name Role Phone Guerrero Middleton PA-C [...] do you attend [facility] or bahai services? Never 08/21/2018 Do you [...] COVID-19? No / Unsure 04/10/2021 9:25 AM HOT PLATE PLYWOOD PRESS OPERATOR documented as of this encounter Plan of Treatment Upcoming Encounters Date Type Department Care Team (Late st Contact Info) Description 09/14/2024 3:00 PM CDT Office Visit [facility] [address] [place] [address] Marlys Mayer MD [address] [place], [place] [phone] documented as of this encounter Visit Diagnoses Not on filedocumented in this encounter Additional Health Concerns Assessment Noted Time PHQ-9 Depression Total Score: 1 08/11/19 21 6:30 PM CDT documented as of this encounter Care Teams Automatic Drill Operator Relationship Specialty Start Date End Date Guerrero Middleton PA-C PCP - General Physician Perinatal Instructor 02/13/18 documented as of this encounter
--- OUTSIDE RECORDS SUMMARY | 2024-05-03 21:50 | XMS_ITS | Encounter Summary ---
Author Organization [facility] Address [address] [place] [address] Care Team Providers Care Sales Representative Leather Goods Name Role Phone Guerrero Middleton PA-C Primary Care Provide r Reason for Visit * Reason Comments Medication Refill Encounter Details Date Type Department Care Team (Late st Contact Info) Description 04/29/2021 Refill [facility] [address] [place] [address] Eliane Rosado MD [address] [place] [address] Social History Tobacco Use Types [...] How often do you attend [facility] or samaritan services? Never 08/21/2018 Do you [...] ANGELES: 11/09/2020 CA: 04/19/2021 NOV: Not lesia. STITCHER documented in this encounter Plan of Treatment Upcoming Encounters Date Type Department Care Team (Late st Contact Info) Description 09/14/2024 3:00 PM CDT Office Visit [facility] Heart and Vascular - [place] [address] [place] [phone] Marlys Mayer MD [address] [place] [address] documented as of this encounter Visit Diagnoses Not on filedocumented in this encounter Additional Health Concerns Assessment Noted Time PHQ-9 Depression Total Score: 1 08/11/19 21 6:30 PM CDT documented as of this encounter Care Teams Sales Representative Leather Goods Relationship Specialty Start Date End Date Guerrero Middleton PA-C PCP - General Physician Farm Management Agent 02/13/18 documented as of this encounter
--- OUTSIDE RECORDS SUMMARY | 2024-05-03 21:50 | XMS_ITS | Encounter Summary ---
Author Organization [facility] Address [address] Orozco: Epic Prelude ADT [place] [address] Care Team Providers Care Deburring And Tooling Machine Operator Name Role Phone Guerrero Middleton [...] How often do you attend [facility] or sabianist services? Never 08/21/2018 Do you belong to [...] COVID-19? No / Unsure 06/14/2021 9:19 AM AUTOMOTIVE ELECTRICIAN HELPER documented as of this encounter Plan of Treatment Upcoming Encounters Date Type Department Care Team (Late st Contact Info) Description 09/14/2024 3:00 PM CDT Office Visit [facility] [address] [place] [address] Marlys Mayer MD [address] [place], [place] [phone] documented as of this encounter Visit Diagnoses Not on filedocumented in this encounter Additional Health Concerns Assessment Noted Time PHQ-9 Depression Total Score: 1 08/11/19 21 6:30 PM CDT documented as of this encounter Care Teams Deburring And Tooling Machine Operator Relationship Specialty Start Date End Date Guerrero Middleton PA-C PCP - General Physician Corporate Risk Analyst 02/13/18 documented as of this encounter
--- OUTSIDE RECORDS SUMMARY | 2024-05-03 21:50 | XMS_ITS | Encounter Summary ---
Author Organization [facility] Address [address] [place] [address] Care Team Providers Care Computer Systems Architect Name Role Phone Guerrero Middleton PA-C Primary Care Provide r Encounter Details Date Type Department Care Team (Latest Contact Info) Description 08/15/2021 9:30 AM CDT - 08/15/2021 11:59 PM CDT Hospital Encounter [facility] Donor Services [facility] [address] [place] [address] Phoenix Riddle MD [address] [place] [address] Discharge Disposition: Home or Self [...] tablet TAKE 1 TABLET BY MOUTH EVERY DROP HAMMER SETTER UP 30 Tablet 06/01/2021 09/19/2023 Vascepa 1 gram [...] throughout the procedure. ?? Phoenix Riddle MD Wort Extractor, therapeutic apheresis service [phone] documented in this encounter Plan of Treatment Upcoming Encounters Date Type Department Care Team (Late st Contact Info) Description 09/14/2024 3:00 PM CDT Office Visit [facility] [address] [place] [address] Marlys Mayer MD [address] [place], [place] [phone] documented as of this encounter Procedures Procedure Name Priority Date/Time Associated Diagnosis Comments TRIGLYCERIDE Routine 08/15/2021 10:57 AM CDT Hypertriglyceridemia TRIGLYCERIDE Routine 08/15/2021 9:36 AM CDT Hypertriglyceridemia documented in this encounter Results * (ABNORMAL) TRIGLYCERIDE (08/15/2021 10:57 AM CDT) TRIGLYCERIDE 1,933(H) <150 mg/dL 08/15/2021 12:08 PM CDT [facility] Blood BLOOD SPECIMEN / Unknown Collection / Unknown 08/15/2021 10:57 AM CDT 08/15/2021 11:05 AM CDT Narrative [facility] - 08/15/2021 12:08 PM CDT TRIGLYCERIDES ? mg/dL Normal ?< 150 Borderline High ?150 - 199 High ? 200 - 499 Very High ? >= 500 Based on AHA/NCEP Guidelines. Phoenix Riddle MD CHEMISTRY ORDERABLE S [facility] [employer] [facility] CLIA# [id number] [address] [place] [address] * (ABNORMAL) TRIGLYCERIDE (08/15/2021 9:36 AM CDT) TRIGLYCERIDE >4,425(H) <150 mg/dL 08/15/2021 11:22 AM CDT [facility] Blood BLOOD SPECIMEN / Unknown Collection / Unknown 08/15/2021 9:36 AM CDT 08/15/2021 9:57 AM CDT Narrative [facility] - 08/15/2021 11:22 AM CDT TRIGLYCERIDES ? mg/dL Normal ?< 150 Borderline High ?150 - 199 High ? 200 - 499 Very High ? >= 500 Based on AHA/NCEP Guidelines. Phoenix Riddle MD CHEMISTRY ORDERABLE S [id number] [address] [place] [place] [address] documented in this encounter Visit Diagnoses Diagnosis [...] as of this encounter Care Teams Computer Systems Architect Relationship Specialty Start Date End Date Guerrero Middleton PA-C PCP - General Physician Body Team Member 02/13/18 documented as of this encounter
--- OUTSIDE RECORDS SUMMARY | 2024-05-03 21:50 | XMS_ITS | Encounter Summary ---
Author Organization [facility] Address [address] [place] [address] Care Team Providers Care Home Therapy Teacher Name Role Phone Guerrero Middleton PA-C Primary Care Provide r Encounter Details Date Type Department Care Team (Latest Contact Info) Description 07/20/2021 9:17 AM CDT - 07/20/2021 11:59 PM CDT Hospital Encounter [facility] Donor Services [facility] [address] [place] [address] Phoenix Riddle MD [address] [place] [address] Discharge Disposition: Home or Self [...] any clubs o r organizations such as advent groups, unions, fraternal or athletic groups, or [...] tablet TAKE 1 TABLET BY MOUTH EVERY BLUE LINE HANGER 30 Tablet 06/01/2021 09/19/2023 Vascepa 1 [...] throughout the procedure. ?? Phoenix Riddle MD Workforce Staffing Advisor, therapeutic apheresis service [phone] documented in this encounter Plan of Treatment Upcoming Encounters Date Type Department Care Team (Late st Contact Info) Description 09/14/2024 3:00 PM CDT [facility] Visit [facility] [address] [place] [address] Marlys Mayer MD [address] [place] [address] documented as of this encounter Procedures Procedure Name Priority Date/Time Associated Diagnosis Comments TRIGLYCERIDE Routine 07/20/2021 11:06 AM CDT Hypertriglyceridemia TRIGLYCERIDE Routine 07/20/2021 9:48 AM CDT Hypertriglyceridemia documented in this encounter Results * (ABNORMAL) TRIGLYCERIDE (07/20/2021 11:06 AM CDT) TRIGLYCERIDE 3,042(H) <150 mg/dL 07/20/2021 12:28 PM CDT [facility] [employer] [facility] Blood Collection / Unknown 07/20/2021 11:06 AM CDT 07/20/2021 11:38 AM CDT [facility] [employer] [facility] - 07/20/2021 12:28 PM CDT TRIGLYCERIDES ? mg/dL Normal ?< 150 Borderline High ?150 - 199 High ? 200 - 499 Very High ? >= 500 Based on AHA/NCEP Guidelines. Phoenix Riddle MD CHEMISTRY ORDERABLE S [facility] [employer] [facility]# [id number] [address] [facility] [place] [address] * (ABNORMAL) TRIGLYCERIDE (07/20/2021 9:48 AM CDT) TRIGLYCERIDE >4,425(H) <150 mg/dL 07/20/2021 11:17 AM CDT [facility] [employer] [facility] Blood Collection / Unknown 07/20/2021 9:48 AM CDT 07/20/2021 9:50 AM CDT [facility] - 07/20/2021 11:17 AM CDT TRIGLYCERIDES ? mg/dL Normal ?< 150 Borderline High ?150 - 199 High ? 200 - 499 Very High ? >= 500 Based on AHA/NCEP Guidelines. Phoenix Riddle MD CHEMISTRY ORDERABLE S [facility]# [id number] [address] [place] [address] documented in this encounter Visit Diagnoses Diagnosis [...] documented as of this encounter Care Teams Home Therapy Teacher Relationship Specialty Start Date End Date Guerrero Middleton PA-C PCP - General Physician Manager Control 02/13/18 documented as of this encounter
--- OUTSIDE RECORDS SUMMARY | 2024-05-03 21:50 | XMS_ITS | Encounter Summary ---
Author Organization [facility] Address [address] [place] [address] Care Team Providers Care Right Of Way Clearer Name Role Phone Guerrero Middleton PA-C Primary Care Provide r Encounter Details Date Type Department Care Team (Latest Contact Info) Description 08/23/2021 9:00 AM CDT - 08/23/2021 11:59 PM CDT Hospital Encounter [facility] Donor Services [facility] [address] [place] [address] Phoenix Riddle MD [address] [facility] [address] [facility] [place] [address] Discharge Disposition: Home or Self [...] tablet TAKE 1 TABLET BY MOUTH EVERY MOBILE SECURITY ARCHITECT 30 Tablet 06/01/2021 09/19/2023 Vascepa 1 gram [...] throughout the procedure. ?? Phoenix Riddle MD Dope Pourer, therapeutic apheresis service [phone] documented in this encounter Plan of Treatment Upcoming Encounters Date Type Department Care Team (Late st Contact Info) Description 09/14/2024 3:00 PM CDT Office Visit [facility] Heart and Vascular - [facility] [address] [facility] [address] [place] [address] Marlys Mayer MD [address] [place], [place] [phone] documented as of this encounter Procedures Procedure Name Priority Date/Time Associated Diagnosis Comments TRIGLYCERIDE Routine 08/23/2021 10:41 AM CDT Hypertriglyceridemia TRIGLYCERIDE Routine 08/23/2021 9:43 AM CDT Hypertriglyceridemia documented in this encounter Results * (ABNORMAL) TRIGLYCERIDE (08/23/2021 10:41 AM CDT) TRIGLYCERIDE 2,301(H) <150 mg/dL 08/23/2021 12:28 PM CDT [facility] Blood BLOOD SPECIMEN / Unknown Collection / Unknown 08/23/2021 10:41 AM CDT 08/23/2021 11:20 AM CDT Narrative [facility] [employer] [facility] - 08/23/2021 12:28 PM CDT TRIGLYCERIDES ? mg/dL Normal ?< 150 Borderline High ?150 - 199 High ? 200 - 499 Very High ? >= 500 Based on AHA/NCEP Guidelines. Phoenix Riddle MD CHEMISTRY ORDERABLE S Performing Organization Address [facility] Co de Phone Number [facility] [employer] [facility]# [id number] [address] [place] [address] * (ABNORMAL) TRIGLYCERIDE (08/23/2021 9:43 AM CDT) TRIGLYCERIDE >4,425(H) <150 mg/dL 08/23/2021 11:04 AM CDT [facility] [employer] [facility] Blood BLOOD SPECIMEN / Unknown Collection / Unknown 08/23/2021 9:43 AM CDT 08/23/2021 9:45 AM CDT Narrative [facility] [employer] [facility] - 08/23/2021 11:04 AM CDT TRIGLYCERIDES ? mg/dL Normal ?< 150 Borderline High ?150 - 199 High ? 200 - 499 Very High ? >= 500 Based on AHA/NCEP Guidelines. Phoenix Riddle MD CHEMISTRY ORDERABLE S Performing Organization Address [facility] de Phone Number [facility] [employer] [facility]# [id number] [address] [place] [address] documented in this encounter Visit Diagnoses Diagnosis [...] documented as of this encounter Care Teams Right Of Way Clearer Relationship Specialty Start Date End Date Guerrero Middleton PA-C PCP - General Physician Medical Claims Examiner 02/13/18 documented as of this encounter
--- OUTSIDE RECORDS SUMMARY | 2024-05-03 21:50 | XMS_ITS | Encounter Summary ---
Author Organization [facility] Address [address] [place] [address] Care Team Providers Care Executive Business Coach Name Role Phone Guerrero Middleton PA-C Primary Care Provide r Encounter Details Date Type Department Care Team (Latest Contact Info) Description 08/09/2021 9:30 AM CDT - 08/09/2021 11:59 PM CDT Hospital Encounter [facility] Donor Services [address] [address] Nicole Rosas MD [address] [place] [address] Discharge Disposition: Home or Self Care [...] tablet TAKE 1 TABLET BY MOUTH EVERY WOOD PILE DRIVER OPERATOR 30 Tablet 06/01/2021 09/19/2023 Vascepa 1 [...] throughout the procedure. ?? Nicole Mondragon MD Trampoline Team Coach, therapeutic apheresis service [phone] documented in this encounter Plan of Treatment Upcoming Encounters Date Type Department Care Team (Late st Contact Info) Description 09/14/2024 3:00 PM CDT Office Visit [facility] Heart and Vascular - [facility] [address] [address] [facility] [address] [place] [address] Marlys Mayer MD [address] [place] [address] documented as of this encounter Procedures Procedure Name Priority Date/Time Associated Diagnosis Comments TRIGLYCERIDE Routine 08/09/2021 11:25 AM CDT Hypertriglyceridemi a TRIGLYCERIDE Routine 08/09/2021 9:48 AM CDT Hypertriglyceridemi a CBC WITHOUT DIFFERENTIAL Routine 08/09/2021 9:47 AM CDT Hypertriglyceridemi a documented in this encounter Results * (ABNORMAL) TRIGLYCERIDE (08/09/2021 11:25 AM CDT) TRIGLYCERIDE 4,170(H) <150 mg/dL 08/09/2021 12:15 PM CDT [facility] [place] [facility] Blood Venipuncture / Unknown 08/09/2021 11:25 AM CDT 08/09/2021 11:25 AM CDT Narrative [facility] [place] [facility] - 08/09/2021 12:15 PM CDT TRIGLYCERIDES ? mg/dL Normal ?< 150 Borderline High ?150 - 199 High ? 200 - 499 Very High ? >= 500 Based on AHA/NCEP Guidelines. Nicole Rosas MD CHEMISTRY YONI SERRANO [facility] [place] [facility] CLIA# [id number] [address] [place] [address] * (ABNORMAL) TRIGLYCERIDE (08/09/2021 9:48 AM CDT) TRIGLYCERIDE >4,425(H) <150 mg/dL 08/09/2021 11:22 AM CDT [facility] [place] [facility] Blood BLOOD SPECIMEN / Unknown Collection / Unknown 08/09/2021 9:48 AM CDT 08/09/2021 9:53 AM CDT [facility] LABORATORY [facility] - 08/09/2021 11:22 AM CDT TRIGLYCERIDES ? mg/dL Normal ?< 150 Borderline High ?150 - 199 High ? 200 - 499 Very High ? >= 500 Based on AHA/NCEP Guidelines. Nicole Rosas MD CHEMISTRY ORDTima SERRANO [facility] [place] [facility]# [id number] [address] [place], [place] [id number] * (ABNORMAL) CBC WITHOUT DIFFERENTIAL (08/09/2021 9:47 AM CDT) Pathologist [facility] WBC 9.6 4.0 - 9.8 K/uL 08/09/2021 11:05 AM [facility] LABORATORY [facility] RBC 4.29 3.90 - 4.90 M/uL 08/09/2021 11:05 AM [facility] [place] [facility] HEMOGLOBIN 13.0 11.8 - 14.8 g/dL 08/09/2021 11:05 AM [facility] LABORATORY [facility] Comment:Results corrected fo r elevated lipids. HEMATOCRIT 37.2 35.5 - 44.0 % 08/09/2021 11:05 AM [facility] [place] [facility] MCV 86.7 82.0 - 99.0 fL 08/09/2021 11:05 AM [facility] [place] [facility] MCH 30.3 27.2 - 32.6 pg 08/09/2021 11:05 AM [facility] [place] [facility] MCHC 34.9 31.5 - 35.5 g/dL 08/09/2021 11:05 AM [facility] [place] [facility] PLATELETS 440(H) 140 - 350 K/uL 08/09/2021 11:05 AM CDT [facility] LABORATORY SERVICES - [facility] MPV 9.5 9.3 - 12.4 fL 08/09/2021 11:05 AM T [facility] LABORATORY SERVICES - . KIMO RDW 15.1(H) 11.5 - 14.5 % 08/09/2021 11:05 AM T [facility] LABORATORY SERVICES - [facility] RDW-STDEV 48.0 37.1 - 48.7 fL 08/09/2021 11:05 AM T [facility] LABORATORY SERVICES - [facility] Blood BLOOD SPECIMEN / Unknown Collection / Unknown 08/09/2021 9:47 AM CDT 08/09/2021 9:53 AM CDT Nicole Rosas MD HEMATOLOGY ORD ERABLES [facility] LABORATORY [facility]# [id number] [address] [place] [address] documented in this encounter Visit Diagnoses Diagnosis [...] documented as of this encounter Care Teams Executive Business Coach Relationship Specialty Start Date End Date Guerrero Middleton PA-C PCP - General Physician Stunt Performer 02/13/18 documented as of this encounter
--- OUTSIDE RECORDS SUMMARY | 2024-05-03 21:50 | XMS_ITS | Encounter Summary ---
Author Organization [facility] Address [address] Orozco: Epic Prelude ADT [place] [address] Care Team Providers Care Tax Accounting Assistant Name Role Phone Guerrero Middleton PA-C [...] you attend [facility] or restorationist services? Never 08/21/2018 Do you [...] [facility] [address] [place] [address] Marlys Mayer MD [address] [place], [place] [id number] documented as of this encounter Visit Diagnoses Not on filedocumented in this encounter Additional Health Concerns Assessment Noted Time PHQ-9 Depression Total Score: 1 08/11/19 21 6:30 PM CDT documented as of this encounter Care Teams Tax Accounting Assistant Relationship Specialty Start Date End Date Guerrero Middleton PA-C PCP - General Physician Engineering Vice President 02/13/18 documented as of this encounter
--- OUTSIDE RECORDS SUMMARY | 2024-05-03 21:50 | XMS_ITS | Encounter Summary ---
Author Organization [facility] Address [address] Orozco: Epic Prelude ADT [place] [address] Care Team Providers Care Planer Operator Name Role Phone Guerrero Middleton PA-C [...] you attend [facility] or advent services? Never 08/21/2018 Do you [...] [facility] [address] [place] [address] Marlys Mayer MD [address] [place], [place] [phone] documented as of this encounter Visit Diagnoses Not on filedocumented in this encounter Additional Health Concerns Assessment Noted Time PHQ-9 Depression Total Score: 1 08/11/19 21 6:30 PM CDT documented as of this encounter Care Teams Planer Operator Relationship Specialty Start Date End Date Guerrero Middleton PA-C PCP - General Physician Solar Field Service Technician 02/13/18 documented as of this encounter
--- OUTSIDE RECORDS SUMMARY | 2024-05-03 21:50 | XMS_ITS | Encounter Summary ---
Author Organization [facility] Address [address] Orozco: Epic Prelude ADT [place] [address] Care Team Providers Care Water Conservationist Name Role Phone Guerrero Middleton PA-C Primary [...] you attend [facility] or worship services? Never 08/21/2018 Do you [...] [facility] [address] [place] [address] Marlys Mayer MD [address] [place] [address] documented as of this encounter Visit Diagnoses Not on filedocumented in this encounter Care Teams Water Conservationist Relationship Specialty Start Date End Date Guerrero Middleton PA-C PCP - General Physician Bulk Sealer 02/13/18 documented as of this encounter
--- OUTSIDE RECORDS SUMMARY | 2024-05-03 21:50 | XMS_ITS | Encounter Summary ---
Author Organization [facility] Address [address] [place] [address] Care Team Providers Care Collar Setter Overlock Name Role Phone Guerrero Middleton PA-C Primary Care Provide r Reason for Visit * Reason Onset Date Comments Medication Refill 04/24/2021 Encounter Details Date Type Department Care Team (Late st Contact Info) Description 04/24/2021 Refill [facility] Endocrinology [address] [place] [address] Prudence Gates MD [address] [place] [address] Social History Tobacco Use Types [...] COVID-19? No / Unsure 04/10/2021 9:25 AM BLENDER CONVEYOR OPERATOR documented as of this encounter Plan of Treatment Upcoming Encounters Date Type Department Care Team (Late st Contact Info) Description 09/14/2024 3:00 PM CDT Office Visit [facility] [address] [place] [address] Marlys Mayer MD [address] [place] [address] documented as of this encounter Visit Diagnoses Not on filedocumented in this encounter Additional Health Concerns Assessment Noted Time PHQ-9 Depression Total Score: 1 08/11/19 21 6:30 PM CDT documented as of this encounter Care Teams Collar Setter Overlock Relationship Specialty Start Date End Date Guerrero Middleton PA-C PCP - General Physician French Edge Operator 02/13/18 documented as of this encounter
--- OUTSIDE RECORDS SUMMARY | 2024-05-03 21:50 | XMS_ITS | Encounter Summary ---
Author Organization [facility] Address [address] Orozco: Epic Prelude ADT [place] [address] Care Team Providers Care Assessment Analyst Name Role Phone Guerrero Middleton PA-C [...] do you attend [facility] or mormonism services? Never 08/21/2018 Do [...] [facility] [address] [place] [address] Marlys Mayer MD [address] [place], [place] [phone] documented as of this encounter Visit Diagnoses Not on filedocumented in this encounter Additional Health Concerns Assessment Noted Time PHQ-9 Depression Total Score: 1 08/11/19 21 6:30 PM CDT documented as of this encounter Care Teams Assessment Analyst Relationship Specialty Start Date End Date Guerrero Middleton PA-C PCP - General Physician Stockholder 02/13/18 documented as of this encounter
--- OUTSIDE RECORDS SUMMARY | 2024-05-03 21:50 | XMS_ITS | Encounter Summary ---
Author Organization [facility] Address [address] Orozco: Epic Prelude ADT [place] [address] Care Team Providers Care Rejoiner Name Role Phone Guerrero Middleton PA-C Primary [...] 08/21/2018 How often do you attend [facility] or uatsdin services? Never 08/21/2018 Do you [...] COVID-19? No / Unsure 03/20/2021 9:28 AM GUIDANCE DIRECTOR documented as of this encounter Plan of Treatment Upcoming Encounters Date Type Department Care Team (Late st Contact Info) Description 09/14/2024 3:00 PM CDT Office Visit [facility] [address] [address] [facility] [place] [address] Marlys Mayer MD [address] [place], [place] [phone] documented as of this encounter Visit Diagnoses Not on filedocumented in this encounter Additional Health Concerns Assessment Noted Time PHQ-9 Depression Total Score: 1 08/11/19 21 6:30 PM CDT documented as of this encounter Care Teams Rejoiner Relationship Specialty Start Date End Date Guerrero Middleton PA-C PCP - General Physician Engineering Clerk 02/13/18 documented as of this encounter
--- OUTSIDE RECORDS SUMMARY | 2024-05-03 21:50 | XMS_ITS | Encounter Summary ---
Author Organization [facility] Address [address] [place] [address] Care Team Providers Care Seat Builder Name Role Phone Guerrero Middleton PA-C Primary Care Provide r Reason for Visit * Reason Onset Date Comments appt letter 04/24/2021 Encounter Details Date Type Department Care Team (Late st Contact Info) Description 04/24/2021 Telephone [facility] Endocrinology [address] [place] [address] Prudence Gates MD [address] [place] [address] appt letter Social History Tobacco [...] How often do you attend [facility] or lutheran services? Never 08/21/2018 Do you [...] COVID-19? No / Unsure 04/10/2021 9:25 AM CONTROL SYSTEM MANAGER documented as of this encounter Miscellaneous Notes * Telephone Encounter - Suze Jackson - 04/24/2021 2:30 PM CST Appt warning letter being sent ROL SYSTEM MANAGER documented in this encounter Plan of Treatment Upcoming Encounters Date Type Department Care Team (Late st Contact Info) Description 09/14/2024 3:00 PM CDT Office Visit [facility] [address] [place] [address] Marlys Mayer MD [address] [place] [address] documented as of this encounter Visit Diagnoses Not on filedocumented in this encounter Additional Health Concerns Assessment Noted Time PHQ-9 Depression Total Score: 1 08/11/19 21 6:30 PM CDT documented as of this encounter Care Teams Seat Builder Relationship Specialty Start Date End Date Guerrero Middleton PA-C PCP - General Physician Acute Care Nurse Practitioner 02/13/18 documented as of this encounter
--- OUTSIDE RECORDS SUMMARY | 2024-05-03 21:50 | XMS_ITS | Encounter Summary ---
Author Organization [facility] Address [address] Orozco: Epic Prelude ADT [place] [address] Care Team Providers Care Manager Wireless Name Role Phone Guerrero Middleton PA-C Primary [...] do you attend [facility] or restoration services? Never 08/21/2018 Do you [...] [facility] - [facility] [address] [place] [address] Marlys Mayer MD [address] [place], [place] [phone] documented as of this encounter Visit Diagnoses Not on filedocumented in this encounter Additional Health Concerns Assessment Noted Time PHQ-9 Depression Total Score: 1 08/11/19 21 6:30 PM CDT documented as of this encounter Care Teams Manager Wireless Relationship Specialty Start Date End Date Guerrero Middleton PA-C PCP - General Physician Informatics Coordinator 02/13/18 documented as of this encounter
--- OUTSIDE RECORDS SUMMARY | 2024-05-03 21:50 | XMS_ITS | Encounter Summary ---
Author Organization [facility] Address [address] [place] [address] Care Team Providers Care Special Needs Librarian Name Role Phone Guerrero Middleton PA-C Primary Care Provide r Reason for Visit * Auth/Cert Specialty Diagnoses / Procedures Referred By Conthardki t Referred To Contact Laboratory [facility] [address] [place] [address] Referral ID Status Reason Start Date Expiration Date Visits Re quested Visits Authorized [id number] 1 1 Encounter Details Date Type Department Care Team (Latest Contact Info) Description 08/17/2021 9:16 AM CDT - 08/17/2021 11:59 PM CDT Hospital Encounter [facility] [address] [place] [address] Marlys Mayre MD [address] [place] [address] Discharge Disposition: Home or Self [...] tablet TAKE 1 TABLET BY MOUTH EVERY PROFESSIONAL MODEL 30 Tablet 06/01/2021 09/19/2023 Vascepa 1 gram [...] use of 5% albumin from a different ore buyer ([facility]) and this is the presumptive culprit of a mild allergic reaction. Per pharmacist, the albumin used for all prior procedures (ore buyer: Grifols) is available from the pharmacy. 4. Plan for next procedure early in week of 08/21/21 with Grifols 5% albumin as replacement fluid. Plan discussed with Ms. Jones and she is in agreement. ?? I have??seen and examined the patient,??reviewed pertinent notes and records,??and remained immediately available throughout the procedure. ?? Nicole Mondragon MD Grain Oilseed Or Pasture Farm Worker, therapeutic apheresis service [phone] * Delroy Tristan RN - 08/17/2021 9:30 [...] [facility] Heart [facility] - [place] [address] [place] [phone] Marlys Mayer MD [address] [place] [address] documented as of this encounter Procedures Procedure Name Priority Date/Time Associated Diagnosis Comments TRIGLYCERIDE Routine 08/17/2021 9:57 AM CDT Hypertriglyceridemia documented in this encounter Results * (ABNORMAL) TRIGLYCERIDE (08/17/2021 9:57 AM CDT) TRIGLYCERIDE >4,425(H) <150 mg/dL 08/17/2021 12:04 PM CDT [facility] [employer] [facility] Blood BLOOD SPECIMEN / Unknown Collection / Unknown 08/17/2021 9:57 AM CDT 08/17/2021 9:59 AM CDT Narrative [facility] [place] [place] [facility] - 08/17/2021 12:04 PM CDT TRIGLYCERIDES ? mg/dL Normal ?< 150 Borderline High ?150 - 199 High ? 200 - 499 Very High ? >= 500 Based on AHA/NCEP Guidelines. Phoenix Riddle MD CHEMISTRY ORDERABLE S [facility] [employer] [facility]# [id number] [address] [place] [address] documented in this encounter Visit Diagnoses Diagnosis [...] Katie 08/17/21 at 0930, Routine Given 08/17/2021 11:13 AM CDT 20 mL documented in this encounter Additional Health Concerns Assessment Noted Time PHQ-9 Depression Total Score: 1 08/11/19 21 6:30 PM CDT documented as of this encounter Care Teams Special Needs Librarian Relationship Specialty Start Date End Date Guerrero Middleton PA-C PCP - General Physician Plate Maker 02/13/18 documented as of this encounter
--- OUTSIDE RECORDS SUMMARY | 2024-05-03 21:50 | XMS_ITS | Encounter Summary ---
Author Organization [facility] Address [address] [place] [address] Care Team Providers Care Staff Technologist Name Role Phone Guerrero Middleton PA-C Primary Care Provide r Encounter Details Date Type Department Care Team (Latest Contact Info) Description 03/20/2021 9:30 AM HAND CULTIVATOR - 03/20/2021 11:59 PM [facility] Hospital Encounter [facility] Donor Services [facility] [address] [place] [address] Phoenix Riddle MD [address] [place] [address] Discharge Disposition: Home or Self [...] COVID-19? No / Unsure 03/20/2021 9:28 AM HAND CULTIVATOR documented as of this encounter Last Filed Vital Signs Vital Sign Reading Time Taken Comments Blood Pressure 121/84 03/20/2021 11:14 AM HAND CULTIVATOR Pulse 81 03/20/2021 11:14 AM HAND CULTIVATOR Temperature 36.7 ??C (98 ??F) 03/20/2021 11:14 AM HAND CULTIVATOR Respiratory Rate 18 03/20/2021 11:14 AM HAND CULTIVATOR Oxygen Saturation - - Inhaled Oxygen Concentration [...] tablet TAKE 1 TABLET BY MOUTH EVERY DIGITAL SOLUTIONS ARCHITECT 30 Tablet 5 12/07/2020 06/01/2021 Vascepa 1 [...] procedure well. Next procedure scheduled for 03/29/2021. CULTIVATOR * Phoenix Riddle MD - 03/20/2021 9:30 [...] throughout the procedure. ?? Phoenix Riddle MD Epilepsy Physician, therapeutic apheresis service [phone] CULTIVATOR documented in this encounter Plan of Treatment Upcoming Encounters Date Type Department Care Team (Late st Contact Info) Description 09/14/2024 3:00 PM CDT Office Visit [facility] Heart and Vascular - [place] [address] [place] [address] Marlys Mayer MD [address] [place], [place] [phone] documented as of this encounter Procedures Procedure Name Priority Date/Time Associated Diagnosis Comments TRIGLYCERIDE Routine 03/20/2021 11:07 AM HAND CULTIVATOR Hypertriglyceridemia TRIGLYCERIDE Routine 03/20/2021 9:53 AM HAND CULTIVATOR Hypertriglyceridemia documented in this encounter Results * (ABNORMAL) TRIGLYCERIDE (03/20/2021 11:07 AM HAND CULTIVATOR) TRIGLYCERIDE 1,116(H) <150 mg/dL 03/20/2021 12:02 PM HAND CULTIVATOR [facility] Blood Venipuncture / Unknown 03/20/2021 11:07 AM HAND CULTIVATOR 03/20/2021 11:14 AM HAND CULTIVATOR Narrative [facility] - 03/20/2021 12:02 PM HAND CULTIVATOR TRIGLYCERIDES ? mg/dL Normal ?< 150 Borderline High ?150 - 199 High ? 200 - 499 Very High ? >= 500 Based on AHA/NCEP Guidelines. Phoenix Riddle MD CHEMISTRY ORDERABLE S [id number] [address] [place] [address] * (ABNORMAL) TRIGLYCERIDE (03/20/2021 9:53 AM HAND CULTIVATOR) TRIGLYCERIDE 2,913(H) <150 mg/dL 03/20/2021 10:41 AM HAND CULTIVATOR [facility] [employer] [facility] Blood Venipuncture / Unknown 03/20/2021 9:53 AM HAND CULTIVATOR 03/20/2021 9:55 AM HAND CULTIVATOR Narrative [facility] - 03/20/2021 10:41 AM HAND CULTIVATOR TRIGLYCERIDES ? mg/dL Normal ?< 150 Borderline High ?150 - 199 High ? 200 - 499 Very High ? >= 500 Based on AHA/NCEP Guidelines. Phoenix Riddle MD CHEMISTRY ORDERABLE S [facility]# [id number] [address] [place] [address] documented in this encounter Visit Diagnoses Diagnosis [...] 0930, Routine New Bag 03/20/2021 9:58 AM HAND CULTIVATOR 2,000 mg 100 m L/hr heparin, porcine (pf) 10 unit/mL IV syringe 20 Units 20 Units, IV, ONE TIME ONLY, 1 dose, On Sat03/20/21 at 0930, Routine Given 03/20/2021 10:56 AM HAND CULTIVATOR 20 Units heparin, porcine lock flush (pf) 100 unit/mL injection 500 Units 500 Units, IV, ONE TIME ONLY, 1 dose, On Sat03/20/21 at 0930, Routine Given 03/20/2021 10:56 AM HAND CULTIVATOR 500 Units heparin, porcine lock flush (pf) 100 unit/mL injection 500 Units 500 Units, IV, ONE TIME ONLY, 1 dose, On Sat03/20/21 at 0930, Routine, Tube to station 516, blood bank Given 03/20/2021 10:55 AM HAND CULTIVATOR 500 Units sodium chloride flush injection 10 mL 10 mL, IV, ONE TIME ONLY, 1 dose, On Sat03/20/21 at 0930, Routine, Tube to station 516, blood bank Given 03/20/2021 10:55 AM HAND CULTIVATOR 10 mL sodium chloride flush injection 10 mL 10 mL, IV, ONE TIME ONLY, 1 dose, On Sat03/20/21 at 0930, Routine Given 03/20/2021 10:56 AM HAND CULTIVATOR 10 mL sodium chloride flush injection 20 mL 20 mL, IV, ONE TIME ONLY, 1 dose, On Sat03/20/21 at 0930, Routine Given 03/20/2021 10:54 AM HAND CULTIVATOR 20 mL documented in this encounter Additional Health Concerns Assessment Noted Time PHQ-9 Depression Total Score: 1 08/11/19 21 6:30 PM CDT documented as of this encounter Care Teams Staff Technologist Relationship Specialty Start Date End Date Guerrero Middleton PA-C PCP - General Physician Environmental Engineering Assistant 02/13/18 documented as of this encounter
--- OUTSIDE RECORDS SUMMARY | 2024-05-03 21:50 | XMS_ITS | Encounter Summary ---
Author Organization [facility] Address [address] [place] [address] Care Team Providers Care Performance Improvement Consultant Name Role Phone Guerrero Middleton PA-C Primary Care Provide r Encounter Details Date Type Department Care Team (Latest Contact Info) Description 08/14/2021 9:30 AM CDT - 08/14/2021 11:59 PM CDT Hospital Encounter [facility] [address] [place] [id number] Marlys Mayer MD [address] [place], [place] [id number] Discharge Disposition: Home or Self Care Social [...] tablet TAKE 1 TABLET BY MOUTH EVERY FLYING INSTRUCTOR 30 Tablet 06/01/2021 09/19/2023 Vascepa 1 gram [...] throughout the procedure. ?? Phoenix Riddle MD Resources Representative, therapeutic apheresis service [phone] documented in this encounter Plan of Treatment Upcoming Encounters Date Type Department Care Team (Late st Contact Info) Description 09/14/2024 3:00 PM CDT Office Visit [facility] - [place] [address] [place] [address] Marlys Mayer MD [address] [place] [address] documented as of this encounter Procedures Procedure Name Priority Date/Time Associated Diagnosis Comments TRIGLYCERIDE Routine 08/14/2021 10:22 AM CDT Hypertriglyceridemia TRIGLYCERIDE Routine 08/14/2021 9:24 AM CDT Hypertriglyceridemia documented in this encounter Results * (ABNORMAL) TRIGLYCERIDE (08/14/2021 10:22 AM CDT) TRIGLYCERIDE 3,440(H) <150 mg/dL 08/14/2021 11:26 AM CDT [facility] Blood Venipuncture / Unknown 08/14/2021 10:22 AM CDT 08/14/2021 10:38 AM CDT Narrative [facility] - 08/14/2021 11:26 AM CDT TRIGLYCERIDES ? mg/dL Normal ?< 150 Borderline High ?150 - 199 High ? 200 - 499 Very High ? >= 500 Based on AHA/NCEP Guidelines. Phoenix Riddle MD [id number] [address] [address] * (ABNORMAL) TRIGLYCERIDE (08/14/2021 9:24 AM CDT) TRIGLYCERIDE >4,425(H) <150 mg/dL 08/14/2021 10:22 AM CDT [facility] Blood Venipuncture / Unknown 08/14/2021 9:24 AM CDT 08/14/2021 9:26 AM CDT Narrative [facility] - 08/14/2021 10:22 AM CDT TRIGLYCERIDES ? mg/dL Normal ?< 150 Borderline High ?150 - 199 High ? 200 - 499 Very High ? >= 500 Based on AHA/NCEP Guidelines. Nicole Rosas MD CHEMISTRY [facility]# [id number] [address] [place] [address] documented in this encounter Visit Diagnoses Diagnosis [...] documented as of this encounter Care Teams Performance Improvement Consultant Relationship Specialty Start Date End Date Guerrero Middleton PA-C PCP - General Physician Ball Warper Tender 02/13/18 documented as of this encounter
--- OUTSIDE RECORDS SUMMARY | 2024-05-03 21:50 | XMS_ITS | Encounter Summary ---
Author Organization [facility] Address [address] [place] [address] Care Team Providers Care Medical Observer Name Role Phone Guerrero Middleton PA-C Primary Care Provide r Reason for Visit * Reason Comments Medication Refill Encounter Details Date Type Department Care Team (Late st Contact Info) Description 04/29/2021 Refill [facility] Endocrinology [address] [place] [address] Coty Pierson MD [address] [place] [address] Social History Tobacco Use Types [...] ANGELES: 11/09/2020 CA: 04/19/2021 NOV: Not lesia. 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 documented in this encounter Plan of Treatment Upcoming Encounters Date Type Department Care Team (Late st Contact Info) Description 09/14/2024 3:00 PM CDT [facility] Visit [facility] [address] [place] [address] Marlys Mayer MD [address] [place] [address] documented as of this encounter Visit Diagnoses Not on filedocumented in this encounter Additional Health Concerns Assessment Noted Time PHQ-9 Depression Total Score: 1 08/11/19 21 6:30 PM CDT documented as of this encounter Care Teams Medical Observer Relationship Specialty Start Date End Date Guerrero Middleton PA-C PCP - General Physician Chief Deputy Clerk/Bailiff 02/13/18 documented as of this encounter
--- OUTSIDE RECORDS SUMMARY | 2024-05-03 21:50 | XMS_ITS | Encounter Summary ---
Author Organization [facility] Address [address] [place] [address] Care Team Providers Care Ship'S Surveyor Name Role Phone Guerrero Middleton PA-C Primary [...] Contac t Referred To Contact [facility] Surgical [address] [place] [address] Referral ID Status Reason Start Date Expiration Date Visits Re quested Visits Authorized [id number] 1 1 Encounter Details Date Type Department Care Team (Late st Contact Info) Description 08/24/2021 10:25 AM CDT - 08/26/2021 1:58 PM CDT Emergency [facility] Medical Surgical [address] [place] [address] [place] [address] [place] [address] [place] [id number] [address] [place] [address] [place] [address] Allergic reaction caused by a [...] often do you attend chur ch or yarsanism services? Never 08/21/2018 Do you [...] Olsen MD - 08/26/2021 8:32 PM CDT [facility] Adult Hospitalist Discharge Summary Linda Doss 45 y.o. female 1975 CSN: [id number] Date of Admission: 08/24/2021 Date of Discharge: [...] Admission: ECHO COMPLETE Result Date: 08/25/2021 -- [address] [address] [email or web address] Technical Textilesmober[facility]/[email or web address] -- Transthoracic Echocardiography -- Patient: Linda Doss Study ID: ECHO COMPLETE Gender: F : 1975 Age: 45 Race: ANNEMARIE Height 165.1cm Study Date: 08/25/2021 Weight: 83.5kg Access. #: [id number] BP: -- -- *Referring Physician:Chin Bhat *Ordering Physician:Chin Bhat Deadener: external auditor: Nurse: -- --- Indications: Chest pain. SOB [...] AM. Prepared and Electronically Authenticated Miguel Lewis [id number] XR CHEST PA OR AP 1 VW [...] of active disease. DICTATION LOCATION: Location 1 [facility] Discharge Lab Data: Lab Results [...] Jardiance TAKE 1 TABLET BY MOUTH EVERY DIRECTOR OF GROUP SALES Signed by: Dr. Prudence Gates MD Quantity: 30 Tablet Refills: 0 fenofibrate 160 mg Tablet Commonly known as: LOFIBRA TAKE 1 TABLET BY MOUTH EVERY DAY Signed by: Dr. Prudence Gates MD Quantity: 90 Tablet Refills: 0 Fish Oil-Princess Anne-3 Fatty Acids 360-1,200 mg Capsule Take 2 [...] TAKE 1 TABLET BY MOUTH EVERY DIRECTOR OF GROUP SALES 30 Tablet 06/01/2021 09/19/2023 Vascepa 1 gram [...] team, patient at an upcomingappointment, and her soft iron inspector about the most appropriate plan of action. I have reviewed pertinent notes and records??and remained immediately available throughout the procedure. ?? Phoenix Riddle MD Town Clerk, therapeutic apheresis service [phone] * Sharri Juarez RN - 08/26/2021 10:31 AM CDT Plasma exchange completed today using R and L chest BARD ports for draw and return. Used 5% Albuminas replacement fluid for a 1.0 volume exchange with a 100% fluid balance. Patient tolerated the procedure well. * Shagufta Olsen MD - 08/25/2021 6:06 PM CDT [facility] Hospitalist Progress Note Date of Service: 08/25/2021 [...] Armenta MD - 08/24/2021 12:53 PM CDT [facility] HOSPITAL[facility] NOTE 08/24/21 12:53 PM Contacted for: [...] suited for in person evaluation. Tickettransferred to [facility] hospitalist team. Kathi Mercado MD documented in [...] She reports that her Dad had an LA and her mom had a CVA. Chief [...] MD at [facility] GI [facility] No outpatient medications have been [...] 08/24/21 EKG 12-LEAD Narrative Stationary ECG Study [facility] Test Date: 08/24/2021 10:30 AM Pat Name: LINDA DOSS Department: 40 Room: 06 Gender: F Milling Machine Tender: : 1975 Requested By: YAAKOV BLACK Order Number: [id number] Reading MD: Measurements Intervals [place] Rate: 108 P: 76 MO: 162 QRS: 81 QRSD: 87 T: -41 [...] of active disease. DICTATION LOCATION: Location 1 [facility] Assessment: Principal Problem: Allergic reaction [...] TAKE 1 TABLET BY MOUTH EVERY DIRECTOR OF GROUP SALES Qty: 30 Tablet, Refills: 0 Vascepa 1 [...] Itching. Qty: 16 Tablet, Refills: 0 Fish Oil-Princess Anne-3 Fatty Acids 360-1,200 mg Capsule Take 2 [...] nursing note reviewed. Exam conducted with a pathology secretary present. Constitutional: General: She is not in [...] evidence of active disease. DICTATION LOCATION: Location [address] [place] [address] XR CHEST PA OR AP 1 VW [...] Course User Index [BF] Yaakov Kern MD [facility] I have reviewed previous: notes and ECG [...] TAKE 1 TABLET BY MOUTH EVERY DIRECTOR OF GROUP SALES Qty: 30 Tablet, Refills: 0 Vascepa 1 [...] Itching. Qty: 16 Tablet, Refills: 0 Fish Oil-Princess Anne-3 Fatty Acids 360-1,200 mg Capsule Take 2 [...] Date/Time Comment Admit Stable Yaakov Kern MD [facility] Aug 24, 2021 1:22 PM ATTESTATION STATEMENTS [...] because of medications (i.e. - BP meds, CV/CONCRETE BUCKET UNLOADER meds, seizure meds, diuretics, pain meds, psych [...] to have Echo- palpitations and tachycardia. Per veterinary virus serum inspector rates now in 80's, no complaint of palpitations. Given steroids and increasedblood sugars to 400's. Continue to monitor for any discharge needs. Savana Ledbetter RN, MSN, [facility], [facility] Inpatient Telecommunication Equipment Repairer [phone] E-mail: [email or web address] * Care Plan - Kacy Mayorga RN - 08/25/2021 4:05 AM CDT Day 1 - Current ([facility]: Adult and Obstetrics) Patient, family, or [...] because of medications (i.e. - BP meds, CV/CONCRETE BUCKET UNLOADER meds, seizure meds, diuretics, pain meds, psych [...] because of medications (i.e. - BP meds, CV/CONCRETE BUCKET UNLOADER meds, seizure meds, diuretics, pain meds, psych [...] discharge planning. Savana Ledbetter RN, MSN, [facility] Inpatient Telecommunication Equipment Repairer [phone] E-mail: [email or web address] documented in this encounter Plan of Treatment Upcoming Encounters Date Type Department Care Team (Late st Contact Info) Description 09/14/2024 3:00 PM CDT Office Visit [facility] Heart [facility] Vascular [facility] [address] [place] [address] Marlys Mayer MD [address] [place] [address] documented as of this encounter [...] * POC GLUCOSE (08/26/2021 11:11 AM CDT) [facility] Signature GLUCOSE POC 90 74 - 99 mg/dL 08/26/2021 11:11 AM CDT [facility] SPECIMEN SOURCE, GLUCOSE POC Whole Blood 08/26/2021 11:11 AM CDT [facility] Blood, whole 08/26/2021 11:1 1 AM CDT 08/26/2021 11:20 AM CDT Shagufta Olsen MD POINT OF CARE TESTIN G Performing Organization Address City/[facility]/ZIP Co de Phone Number [facility]# [id number] [address] [place] [address] * (ABNORMAL) TRIGLYCERIDE (08/26/2021 10:04 AM CDT) TRIGLYCERIDE 211(H) <150 mg/dL 08/26/2021 11:13 AM CDT [facility] Blood Collection / Unknown 08/26/2021 10:04 AM CDT 08/26/2021 10:24 AM CDT [facility] - 08/26/2021 11:13 AM CDT TRIGLYCERIDES ? mg/dL Normal ?< 150 Borderline High ?150 - 199 High ? 200 - 499 Very High ? >= 500 Based on AHA/NCEP Guidelines. Phoenix Riddle MD CHEMISTRY ORDERABLE S Performing Organization Address [facility] Co de Phone Number [facility]# [id number] [address] [place] [address] * (ABNORMAL) TRIGLYCERIDE (08/26/2021 8:46 AM CDT) TRIGLYCERIDE 492(H) <150 mg/dL 08/26/2021 9:42 AM CDT [facility] Blood Collection / Unknown 08/26/2021 8:46 AM CDT 08/26/2021 8:58 AM CDT [facility] - 08/26/2021 9:42 AM CDT TRIGLYCERIDES ? mg/dL Normal ?< 150 Borderline High ?150 - 199 High ? 200 - 499 Very High ? >= 500 Based on AHA/NCEP Guidelines. Phoenix iRddle MD CHEMISTRY ORDERABLE S [facility] - [facility] CLIA# [id number] [address] [facility] [place] [address] * (ABNORMAL) BASIC METABOLIC PANEL (08/26/2021 4:23 AM CDT) Pathologist [facility] SODIUM 137 136 - 145 mmol/L 08/26/2021 5:11 AM T [facility] POTASSIUM 3.6 3.5 - 5.0 mmol/L 08/26/2021 5:11 AM [facility] CHLORIDE 100 98 - 107 mmol/L 08/26/2021 5:11 AM T [facility] CO2 25 22 - 29 mmol/L 08/26/2021 5:11 AM [facility] CALCIUM 9.6 8.6 - 10.2 mg/dL 08/26/2021 5:11 AM [facility] BUN 11 6 - 20 mg/dL 08/26/2021 5:11 AM [facility] CREATININE 0.65 0.51 - 0.95 mg/dL 08/26/2021 5:11 AM T [facility] GLUCOSE 184(H) 74 - 99 mg/dL 08/26/2021 5:11 AM T [facility] GFR >60 >=60 mL/min/1. 73 sq meter 08/26/2021 5:11 AM [facility] Comment: eGFR calculated with 2020 CKD-EPI equation. ??Vegetarian diet, extremely high or low muscle mass, and may affect results. ??Cystatin C with Glomerular Filtration Rate is a suitable alternative for these patients. The National Kidney Foundation and the [place] Society of Nephrology (NKF-ASN) recommends using the [...] - 16 mmol/L 08/26/2021 5:11 AM CDT [facility] Blood Venipuncture / Unknown 08/26/2021 4:23 AM CDT 08/26/2021 4:34 AM CDT Chin Maurice DO CHEMISTRY YONI SERRANO [facility] SERVICES [facility]# [id number] [address] [facility] [place] [address] * (ABNORMAL) CBC WITH DIFFERENTIAL (08/26/2021 4:23 AM CDT) WBC 14.4(H) 4.0 - 9.8 K/uL 08/26/2021 4:50 AM CDT [facility] RBC 3.20(L) 3.90 - 4.90 M/uL 08/26/2021 4:50 AM CDT [facility] HEMOGLOBIN 9.7(L) 11.8 - 14.8 g/dL 08/26/2021 4:50 AM CDT [facility] HEMATOCRIT 29.4(L) 35.5 - 44.0 % 08/26/2021 4:50 AM CDT [facility] MCV 91.9 82.0 - 99.0 fL 08/26/2021 4:50 AM CDT [facility] MCH 30.3 27.2 - 32.6 pg 08/26/2021 4:50 AM CDT [facility] - [facility] MCHC 33.0 31.5 - 35.5 g/dL 08/26/2021 4:50 AM CDT [facility] RDW 16.2(H) 11.5 - 14.5 % 08/26/2021 4:50 AM CDT [facility] - [facility] RDW-STDEV 55.3(H) 37.1 - 48.7 fL 08/26/2021 4:50 AM CDT [facility] - . [facility] PLATELETS 284 140 - 350 K/uL 08/26/2021 4:50 AM CDT [facility] - . [facility] MPV 9.6 9.3 - 12.4 fL 08/26/2021 4:50 AM CDT [facility] - . [facility] NEUTROPHILS 71 % 08/26/2021 4:50 AM CDT [facility] - . [facility] LYMPHOCYTES 23 % 08/26/2021 4:50 AM CDT [facility] - . [facility] MONOCYTES 5 % 08/26/2021 4:50 AM CDT [facility] - . [facility] EOSINOPHILS 1 % 08/26/2021 4:50 AM CDT [facility] - [facility] BASOPHILS 0 % 08/26/2021 4:50 AM CDT [facility] - [facility] IMMATURE GRANULOCYTES 1 % 08/26/2021 4:50 AM CDT [facility] - . [facility] Comment:IG (Immature Granulo cyte) count includes Metamyelocytes, Myelocytes, and Promyelocytes NEUTROPHIL ABSOLUTE 10.13(H) 1.90 - 7.00 K/uL 08/26/2021 4:50 AM CDT [facility] LYMPHOCYTE ABSOLUTE 3.29 0.70 - 4.50 K/uL 08/26/2021 4:50 AM CDT [facility] MONOCYTE ABSOLUTE 0.66 0.10 - 1.30 K/uL 08/26/2021 4:50 AM CDT [facility] EOSINOPHIL ABSOLUTE 0.08 0.00 - 0.70 K/uL 08/26/2021 4:50 AM CDT [facility] BASOPHILS ABSOLUTE 0.02 0.00 - 0.20 K/uL 08/26/2021 4:50 AM CDT [facility] IMMATURE GRANULOCYTES ABSOLUTE 0.19(H) 0.00 - 0.03 K/uL 08/26/2021 4:50 AM CDT [facility] Blood Venipuncture / Unknown 08/26/2021 4:23 AM CDT 08/26/2021 4:35 AM CDT Chin Maurice DO HEMATOLOGY ORD ERABLES Performing Organization Address [facility]/ZIP Co de Phone Number [facility] CLIA# [id number] [address] [place] [address] * (ABNORMAL) POC GLUCOSE (08/25/2021 11:13 PM CDT) GLUCOSE POC 316(H) 74 - 99 mg/dL 08/25/2021 11:13 PM CDT [facility] SPECIMEN SOURCE, GLUCOSE POC Whole Blood 08/25/2021 11:13 PM CDT [facility] COMMENT, GLU POC Notified RN/MD 08/25/2021 11:13 PM CDT [facility] SERVICES [facility] Blood, whole 08/25/2021 11:1 3 PM CDT 08/25/2021 11:21 PM CDT Shagufta Olsen MD POINT OF CARE TESTIN G Performing Organization Address [facility]/ZIP Co de Phone Number [facility] CLIA# [id number] [address] [place] [address] * (ABNORMAL) POC GLUCOSE (08/25/2021 10:06 PM CDT) GLUCOSE POC 329(H) 74 - 99 mg/dL 08/25/2021 10:06 PM CDT [facility] SPECIMEN SOURCE, GLUCOSE POC Whole Blood 08/25/2021 10:06 PM CDT [facility] COMMENT, GLU POC Notified RN/MD 08/25/2021 10:06 PM CDT [facility] SERVICES [facility] Blood, whole 08/25/2021 10:0 6 PM CDT 08/25/2021 10:24 PM CDT Shagufta Olsen MD POINT OF CARE TESTIN Performing Organization Address [facility] Co de Phone Number [facility]# [id number] [address] [place] [address] * (ABNORMAL) POC GLUCOSE (08/25/2021 6:20 PM CDT) GLUCOSE POC 359(H) 74 - 99 mg/dL 08/25/2021 6:20 PM CDT [facility] SERVICES [facility] SPECIMEN SOURCE, GLUCOSE POC Whole Blood 08/25/2021 6:20 PM CDT [facility] SERVICES [facility] COMMENT, GLU POC Notified BREANN 08/25/2021 6:20 PM CDT [facility] SERVICES [facility] Blood, whole 08/25/2021 6:20 PM CDT 08/25/2021 6:27 PM CDT Shagufta Olsen MD POINT OF CARE TESTJERONIMO Serrano Performing Organization Address [facility] Co de Phone Number [facility]# [id number] [address] [place] [address] * (ABNORMAL) POC GLUCOSE (08/25/2021 2:40 PM CDT) GLUCOSE POC 418(HH) 74 - 99 mg/dL 08/25/2021 2:40 PM CDT [facility] SPECIMEN SOURCE, GLUCOSE POC Whole Blood 08/25/2021 2:40 PM CDT [facility] COMMENT, GLU POC Notified BREANN 08/25/2021 2:40 PM CDT [facility] SERVICES [facility] Blood, whole 08/25/2021 2:40 PM CDT 08/25/2021 2:53 PM CDT Shagufta Olsen MD POINT OF CARE FLY Serrano Performing Organization Address [facility]/ZIP Co de Phone Number [facility]# [id number] [address] [place] [address] * (ABNORMAL) POC GLUCOSE (08/25/2021 1:44 PM CDT) GLUCOSE POC 406(HH) 74 - 99 mg/dL 08/25/2021 1:44 PM CDT [facility] SPECIMEN SOURCE, GLUCOSE POC Whole Blood 08/25/2021 1:44 PM CDT [facility] SERVICES [facility] COMMENT, GLU POC Notified RN/MD 08/25/2021 1:44 PM CDT [facility] SERVICES [facility] COMMENT 2, GLU POC To be Repeated 08/25/2021 1:44 PM CDT [facility] SERVICES [facility] Blood, whole 08/25/2021 1:44 PM CDT 08/25/2021 2:06 PM CDT Shagufta Olsen MD POINT OF CARE FLY Serrano Performing Organization Address [facility] Co de Phone Number [facility]# [id number] [address] [place] [address] * (ABNORMAL) POC GLUCOSE (08/25/2021 8:56 AM CDT) GLUCOSE POC 281(H) 74 - 99 mg/dL 08/25/2021 8:56 AM CDT [facility] SERVICES [facility] SPECIMEN SOURCE, GLUCOSE POC Whole Blood 08/25/2021 8:56 AM CDT [facility] SERVICES [facility] Blood, whole 08/25/2021 8:56 AM CDT 08/25/2021 9:06 AM CDT Shagufta Olsen MD POINT OF CARE TESTJERONIMO Serrano [facility] - [facility]# [id number] [address] [place] [address] * ECHO COMPLETE (08/25/2021 7:40 AM CDT) EJECTION FRACTION EF: INTERFACE SYSTEM 08/25/2021 7:20 AM CDT Narrative INTERFACE SYSTEM - 08/25/2021 8:24 AM CDT -- [facility] [address] [place] [address] [email or web address] -- Transthoracic Echocardiography -- Patient: ? Linda Doss MRN: ? [id number] Study ID: ?ECHO COMPLETE Gender: ?F : ? 1975 Age: ? 45 Race: ?CAU Height ? 165.1cm Study Date: ?08/25/2021 Weight: ?83.5kg Access. #: ? [id number] Account #: ? [id number] BP: -- -- *Referring Physician:* Chin Maurice *Ordering Physician:* ??Chin Maurice Deadener: external auditor: Nurse: -- Indications: Chest pain. ??SOB / [...] AM. Prepared and Electronically Authenticated Miguel Lewis [id number]:24:40 Procedure Note Miguel Lewis MD - 08/25/2021 -- [place] [address] [email or web address] medical [email or web address] Technical Textilesmoberly regional medical center/[email or web address] -- Transthoracic Echocardiography -- Patient: Linda Doss Study ID: ECHO COMPLETE Gender: F : 1975 Age: 45 Race: CAU Height 165.1cm Study Date: 08/25/2021 Weight: 83.5kg Access. #: [id number] BP: -- -- *Referring Physician:* Chin Maurice *Ordering Physician:* Chin Maurice Deadener: external auditor: Nurse: -- Indications: Chest pain. SOB / [...] AM. Prepared and Electronically Authenticated Miguel Lewis [id number]:24:40 Chin Henderson Sergo DO LEO ORDERABLES INTERFACE SYSTEM Refer to clinic/hospital department * (ABNORMAL) LIPID PANEL (08/25/2021 4:23 AM CDT) [facility] CHOLESTEROL 297(H) <200 mg/dL 08/25/2021 5:18 AM [facility] TRIGLYCERIDE 2,738(H) <150 mg/dL 08/25/2021 5:18 AM [facility] HDL 08/25/2021 5:18 AM [facility] [facility] Comment:Measured HDL is not accurate when the Triglyceride value exceeds 1200. LDL CALCULATED 08/25/2021 5:18 AM [facility] Comment:Calculated LDL is no t accurate when the Triglyceride value exceeds 400. NON-HDL CHOLESTEROL 08/25/2021 5:18 AM [facility] Comment:Non HDL Cholesterol cannot be calculated when the HDL value is suppressed. Blood Venipuncture / Unknown 08/25/2021 4:23 AM T 08/25/2021 4:28 AM T [facility] - 08/25/2021 5:18 AM CDT TOTAL CHOLESTEROL [...] . Chin Maurice DO CHEMISTRY ORDE MAGGIE [facility] - [facility] KARLEE# [id number] [address] [place] [address] * (ABNORMAL) BASIC METABOLIC PANEL (08/25/2021 4:23 AM CDT) SODIUM 133(L) 136 - 145 mmol/L 08/25/2021 5:00 AM [facility] LABORATORY SERVICES - . [facility] POTASSIUM 4.2 3.5 - 5.0 mmol/L 08/25/2021 5:00 AM [facility] LABORATORY [facility] - . [place] CHLORIDE 97(L) 98 - 107 mmol/L 08/25/2021 5:00 AM [facility] LABOR[facility]ORY [facility] - . [facility] CO2 19(L) 22 - 29 mmol/L 08/25/2021 5:00 AM [facility] LABORATORY [facility]. [facility] CALCIUM 8.9 8.6 - 10.2 mg/dL 08/25/2021 5:00 AM [facility] - . [place] BUN 10 6 - 20 mg/dL 08/25/2021 5:00 AM [facility] [facility]. [facility] CREATININE 0.57 0.51 - 0.95 mg/dL 08/25/2021 5:[address] [facility]. [facility] GLUCOSE 308(H) 74 - 99 mg/dL 08/25/2021 5:00 AM [facility]. [facility] GFR >60 >=60 mL/min/1. 73 sq meter 08/25/2021 5:00 AM [facility] LAB[facility] Comment: eGFR calculated with 2020 CKD-EPI equation. ??Vegetarian diet, extremely high or low muscle mass, and may affect results. ??Cystatin C with Glomerular Filtration Rate is a suitable alternative for these patients. The National Kidney Foundation and the [place] Society of Nephrology (NKF-ASN) recommends using the [...] 8 - 16 mmol/L 08/25/2021 5:00 AM [facility] - [facility] Blood Venipuncture / Unknown 08/25/2021 4:23 AM CDT 08/25/2021 4:28 AM CDT Chin Maurice DO CHEMISTRY ORDE MAGGIE [facility] SERVICES [facility] CLIA# [id number] [address] [facility] [place] [address] * (ABNORMAL) CBC WITH DIFFERENTIAL (08/25/2021 4:23 AM CDT) WBC 16.4(H) 4.0 - 9.8 K/uL 08/25/2021 4:38 AM [facility] [place] [facility] RBC 3.61(L) 3.90 - 4.90 M/uL 08/25/2021 4:38 AM [facility] LABORATORY SERVICES [facility] HEMOGLOBIN 11.4(L) 11.8 - 14.8 g/dL 08/25/2021 4:38 AM [facility] LABORATORY SERVICES [facility] HEMATOCRIT 32.7(L) 35.5 - 44.0 % 08/25/2021 4:38 AM [facility] [place] [facility] MCV 90.6 82.0 - 99.0 fL 08/25/2021 4:38 AM [facility] [place] [facility] MCH 31.6 27.2 - 32.6 pg 08/25/2021 4:38 AM [place] [facility] MCHC 34.9 31.5 - 35.5 g/dL 08/25/2021 4:38 AM [facility] RDW 16.3(H) 11.5 - 14.5 % 08/25/2021 4:38 AM [facility] [place] [facility] RDW-STDEV 54.7(H) 37.1 - 48.7 fL 08/25/2021 4:38 AM CDT [facility] - . [facility] PLATELETS 313 140 - 350 K/uL 08/25/2021 4:38 AM CDT [facility] MPV 9.6 9.3 - 12.4 fL 08/25/2021 4:38 AM [facility] - . [facility] NEUTROPHILS 81 % 08/25/2021 4:38 AM CDT [facility] - . [facility] LYMPHOCYTES 13 % 08/25/2021 4:38 AM CDT [facility] MONOCYTES 4 % 08/25/2021 4:38 AM CDT [facility] EOSINOPHILS 0 % 08/25/2021 4:38 AM [facility] BASOPHILS 0 % 08/25/2021 4:38 AM [facility] - . [facility] IMMATURE GRANULOCYTES 2 % 08/25/2021 4:38 AM [facility]cted[facility] - . [facility] Comment:IG (Immature Granulo cyte) count includes Metamyelocytes, Myelocytes, and Promyelocytes NEUTROPHIL ABSOLUTE 13.25(H) 1.90 - 7.00 K/uL 08/25/2021 4:38 AM CDT [facility] LYMPHOCYTE ABSOLUTE 2.13 0.70 - 4.50 K/uL 08/25/2021 4:38 AM [facility] MONOCYTE ABSOLUTE 0.66 0.10 - 1.30 K/uL 08/25/2021 4:38 AM [facility] EOSINOPHIL ABSOLUTE 0.02 0.00 - 0.70 K/uL 08/25/2021 4:38 AM [facility] BASOPHILS ABSOLUTE 0.04 0.00 - 0.20 K/uL 08/25/2021 4:38 AM [facility] - . [place] IMMATURE GRANULOCYTES ABSOLUTE 0.28(H) 0.00 - 0.03 K/uL 08/25/2021 4:38 AM [facility] Blood Venipuncture / Unknown 08/25/2021 4:23 AM CDT 08/25/2021 4:28 AM CDT Chin Maurice DO HEMATOLOGY ORD ERABLES Performing Organization Address [facility]/ZIP Co de Phone Number [facility]# [id number] [address] [place] [address] * (ABNORMAL) POC GLUCOSE (08/25/2021 2:05 AM CDT) GLUCOSE POC 326(H) 74 - 99 mg/dL 08/25/2021 2:05 AM CDT [facility] SPECIMEN SOURCE, GLUCOSE POC Whole Blood 08/25/2021 2:05 AM CDT [facility] COMMENT, GLU POC Notified RN/MD 08/25/2021 2:05 AM CDT [facility] Blood, whole 08/25/2021 2:05 AM CDT 08/25/2021 2:12 AM CDT Chin Maurice POINT OF CARE TESTING Performing Organization Address [facility] Co de Phone Number [facility]# [id number] [address] [place] [address] * (ABNORMAL) POC GLUCOSE (08/24/2021 9:34 PM CDT) GLUCOSE POC 430(HH) 74 - 99 mg/dL 08/24/2021 9:34 PM CDT [facility] SPECIMEN SOURCE, GLUCOSE POC Whole Blood 08/24/2021 9:34 PM CDT [facility] COMMENT, GLU POC Notified RN/MD 08/24/2021 9:34 PM CDT [facility] Blood, whole 08/24/2021 9:34 PM CDT 08/24/2021 9:56 PM CDT Chin Maurice POINT OF CARE TESTING Performing Organization Address City/[facility]/ZIP Co de Phone Number [facility] SERVICES [facility]# [id number] [address] [place] [address] * (ABNORMAL) POC GLUCOSE (08/24/2021 4:04 PM CDT) GLUCOSE POC 341(H) 74 - 99 mg/dL 08/24/2021 4:04 PM CDT [facility] - [facility] SPECIMEN SOURCE, GLUCOSE POC Whole Blood 08/24/2021 4:04 PM CDT [facility]ORATORY SERVICES [facility] Blood, whole 08/24/2021 4:04 PM CDT 08/25/2021 6:48 AM CDT Chin Maurice DO POINT OF CARE TESTING Performing Organization Address [facility] Co de Phone Number [facility]# [id number] [address] [place] [address] * (ABNORMAL) HEMOGLOBIN A1C (08/24/2021 12:21 PM CDT) HEMOGLOBIN A1C 8.9(H) <5.7 % 08/24/2021 3:39 PM CDT [facility] - [facility] EST. AVG GLUCOSE, A1C 209 mg/dL 08/24/2021 3:39 PM CDT [facility]ORATORY SERVICES [facility] Blood Venipuncture / Unknown 08/24/2021 12:21 PM CDT 08/24/2021 12:39 PM CDT Narrative [facility] - [facility] - 08/24/2021 3:39 PM CDT HGB A1C INTERPRETATION NORMAL: ? <5.7% PRE-DIABETES: 5.7 - 6.4% DIABETES: ? 6.5% OR GREATER Chin Maurice DO CHEMISTRY ORDE RABLES Performing Organization Address [facility]/ZIP Co de Phone Number [facility] [id number] [address] [place] [address] * (ABNORMAL) CBC WITH DIFFERENTIAL (08/24/2021 12:21 PM CDT) [facility] WBC 12.1(H) 4.0 - 9.8 K/uL 08/24/2021 [...] EOSINOPHILS 0 % 08/24/2021 12:51 PM CDT [facility] LAB[facility]AT[facility] BASOPHILS 0 % 08/24/2021 12:51 PM CDT [facility] IMMATURE GRANULOCYTES 2 % 08/24/2021 12:51 PM CDT [facility] Comment:IG (Immature Granulo cyte) count includes Metamyelocytes, Myelocytes, and Promyelocytes NEUTROPHIL ABSOLUTE 9.14(H) 1.90 - 7.00 K/uL 08/24/2021 12:51 PM CDT [facility] LYMPHOCYTE ABSOLUTE 2.22 0.70 - 4.50 K/uL 08/24/2021 12:51 PM CDT [facility] LAB[facility]ATORY [facility] MONOCYTE ABSOLUTE 0.43 0.10 - 1.30 K/uL 08/24/2021 12:51 PM CDT [facility] EOSINOPHIL ABSOLUTE 0.02 0.00 - 0.70 K/uL 08/24/2021 12:51 PM CDT [facility] BASOPHILS ABSOLUTE 0.03 0.00 - 0.20 K/uL 08/24/2021 12:51 PM CDT [facility] IMMATURE GRANULOCYTES ABSOLUTE 0.23(H) 0.00 - 0.03 K/uL 08/24/2021 12:51 PM CDT [facility] Blood Venipuncture / Unknown 08/24/2021 12:21 PM CDT 08/24/2021 12:39 PM CDT Yaakov Kern MD HEMATOLOG Y ORDERABLES [facility] CLIA# [id number] 5 SK[address] [facility] [place] [address] * XR CHEST PA OR AP 1 VW (08/24/2021 10:51 AM CDT) Anatomical Region Laterality Modality Chest Computed Radiogr aphy 08/24/2021 10:5 1 AM CDT Impressions 08/24/2021 11:41 AM CDT IMPRESSION: No convincing evidence of active disease. ?? DICTATION LOCATION: Location 1 - [facility] Narrative 08/24/2021 11:41 AM CDT PORTABLE [...] active disease. DICTATION LOCATION: Location 1 - [facility] Yaakov Kern MD DIAGNOSTI C IMAGING ORDERABLES * EKG 12-LEAD (08/24/2021 10:30 AM CDT) 08/24/2021 10:3 0 AM CDT Narrative INTERFACE SYSTEM - 08/24/2021 3:07 PM CDT ? Stationary ECG Study ? [facility] ? Test Date: ?08/24/2021 10:30 AM Pat Name: ? LINDA FEDDER ?Department: ?? 40 ?Room: ? 7315 Gender: ? 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 : ?1975 ? Requested By: YAAKOV BLACK Order Number: [id number] ?Reading MD: ?? Misha Wiele ? Measurements Intervals ?[place] ? Rate: ? 108 ?P: ?76 MO: ? 162 ?QRS: ?81 QRSD: ? 87 ? T: ?-41 QT: ? 341 ? QTc: ?457 ? Interpretive Statements ? Sinus tachycardia Consider left atrial enlargement Low voltage, precordial leads Nonspecific T abnormalities, inferior leads Electronically Signed On 08-24-2021 15:07:04 CDT by Misha Navarro Procedure Note Provider, Historical - 08/24/2021 Stationary ECG Study [facility] Test Date: 08/24/2021 10:30 AM Pat Name: LIDNA DOSS Department: 40 Room: [facility] Gender: F Milling Machine Tender: : 1975 Requested By: YAAKOV BLACK Order Number: [id number] Reading MD: Misha Navarro Measurements Intervals [place] Rate: 108 P: 76 MO: 162 QRS: 81 QRSD: 87 T: -41 [...] BASIC METABOLIC PANEL (08/24/2021 9:46 AM CDT) [facility] SODIUM 130(L) 136 - 145 mmol/L 08/24/2021 12:18 PM CDT [facility] POTASSIUM 4.0 3.5 - 5.0 mmol/L 08/24/2021 12:18 PM T [facility] CHLORIDE 93(L) 98 - 107 mmol/L 08/24/2021 12:18 PM T [facility] CO2 17(L) 22 - 29 mmol/L 08/24/2021 12:18 PM T [facility] CALCIUM 8.7 8.6 - 10.2 mg/dL 08/24/2021 12:18 PM T [facility] Comment:Cleared of chylomicr ons. BUN 9 6 - 20 mg/dL 08/24/2021 12:18 PM T [facility] Comment:Cleared of chylomicr ons. CREATININE 0.26(L) 0.51 - 0.95 mg/dL 08/24/2021 12:18 PM T [facility] GLUCOSE 314(H) 74 - 99 mg/dL 08/24/2021 12:18 PM T [facility] Comment:Cleared of chylomicr ons. GFR >60 >=60 mL/min/1. 73 sq meter 08/24/2021 12:18 PM CDT [facility] Comment: eGFR calculated with 2020 CKD-EPI equation. ??Vegetarian diet, extremely high or low muscle mass, and may affect results. ??Cystatin C with Glomerular Filtration Rate is a suitable alternative for these patients. The National Kidney Foundation and the [place] Society of Nephrology (NKF-ASN) recommends using the [...] - 16 mmol/L 08/24/2021 12:18 PM CDT [facility] Blood Collection / Unknown 08/24/2021 9:46 AM CDT 08/24/2021 9:49 AM CDT Yaakov Kern MD CHEMISTRY ORDERABLES [facility] [id number] [address] [facility] [place] [address] * TROPONIN BASELINE, 5TH GEN (08/24/2021 9:46 AM CDT) TROPONIN T, BASELINE 5TH GEN <6 <=10 ng/L 08/24/2021 11:26 AM CDT [facility] Blood Collection / Unknown 08/24/2021 9:46 AM CDT 08/24/2021 9:49 AM CDT Narrative [facility] - 08/24/2021 11:26 AM CDT Troponin Undetectable Yaakov Kern MD CHEMISTRY ORDERABLES [facility]# [id number] [address] [place] [address] documented in this encounter Visit Diagnoses Diagnosis [...] - Provider: Kacy Mayorga RN)0322 (Return to [facility] - Provider: BLAISE Galo)1141 (Given - Provider: Caitie Walsh LPN) EPINEPHrine (ADRENALINE) 1 mg/mL (1 mL) injection 0.3 mg 0.3 mg, subCUT, ONE TIME PRN, 1 dose, Starting on Kaite 08/24/21 at 1504, Until 08/26/21 at 1558, [...] Stat documented in this encounter Care Teams Ship'S Surveyor Relationship Specialty Start Date End Date Guerrero Middleton PA-C PCP - General Physician Visual Manager 02/13/18 documented as of this encounter
--- OUTSIDE RECORDS SUMMARY | 2024-05-03 21:50 | XMS_ITS | Encounter Summary ---
Author Organization [facility] Address [address] [place] [address] Care Team Providers Care On Line Csr Name Role Phone Guerrero Middleton PA-C Primary Care Provide r Reason for Visit * Reason Comments Medication Refill Encounter Details Date Type Department Care Team (Late st Contact Info) Description 05/22/2021 Refill [facility] Endocrinology [address] [place] [address] Coty Pierson MD [address] [place] [address] Social History Tobacco Use Types [...] Prudence Gates MD - 05/23/2021 1:32 PM REPAIRER GENERAL Send to PCP IRER GENERAL * Telephone Encounter - Lexus Iyer - 05/23/2021 1:11 PM CST ANGELES: 11/09/2020 CA: 04/19/2021 NOV: not lesia. IRER GENERAL documented in this encounter Plan of Treatment Upcoming Encounters Date Type Department Care Team (Late st Contact Info) Description 09/14/2024 3:00 PM CDT Office Visit [facility] [address] [place] [address] Marlys Mayer MD [address] [place] [address] documented as of this encounter Visit Diagnoses Not on filedocumented in this encounter Additional Health Concerns Assessment Noted Time PHQ-9 Depression Total Score: 1 08/11/19 21 6:30 PM CDT documented as of this encounter Care Teams On Line Csr Relationship Specialty Start Date End Date Guerrero Middleton PA-C PCP - General Physician Clam Shovel Operator 02/13/18 documented as of this encounter
--- OUTSIDE RECORDS SUMMARY | 2024-05-03 21:50 | XMS_ITS | Encounter Summary ---
Author Organization [facility] Address [address] [place] [address] Care Team Providers Care Automatic Glove Former Name Role Phone Guerrero Middleton PA-C Primary Care Provide r Encounter Details Date Type Department Care Team (Latest Contact Info) Description 05/25/2021 12:00 PM HORSE STUD MANAGER - 05/25/2021 11:59 PM [facility] Hospital Encounter [facility] Donor Services [address] [address] Nicole Rosas MD [address] [place] [address] Discharge Disposition: Home or Self [...] COVID-19? No / Unsure 05/25/2021 11:18 AM HORSE STUD MANAGER documented as of this encounter Last Filed Vital Signs Vital Sign Reading Time Taken Comments Blood Pressure 99/64 05/25/2021 1:08 PM HORSE STUD MANAGER Pulse 87 05/25/2021 1:08 PM HORSE STUD MANAGER Temperature 36.7 ??C (98.1 ??F) 05/25/2021 1:08 PM CS T Respiratory Rate 18 05/25/2021 1:08 PM HORSE STUD MANAGER Oxygen Saturation - - Inhaled Oxygen Concentration [...] tablet TAKE 1 TABLET BY MOUTH EVERY CLIENT INSIGHTS CONSULTANT 30 Tablet 5 12/07/2020 06/01/2021 Vascepa 1 [...] procedure well. Next procedure scheduled for 06/01/2021. E STUD MANAGER * Nicole Mondragon MD - 05/25/2021 12:00 [...] throughout the procedure. ?? Nicole Mondragon MD Hatchery Worker, therapeutic apheresis service [phone] E STUD MANAGER documented in this encounter Plan of Treatment Upcoming Encounters Date Type Department Care Team (Late st Contact Info) Description 09/14/2024 3:00 PM CDT Office Visit [facility] Heart and Vascular - [facility] [address] [place] [address] Marlys Mayer MD [address] [place] [address] documented as of this encounter Procedures Procedure Name Priority Date/Time Associated Diagnosis Comments TRIGLYCERIDE Routine 05/25/2021 12:52 PM HORSE STUD MANAGER Hypertriglyceridemia TRIGLYCERIDE Routine 05/25/2021 12:04 PM HORSE STUD MANAGER Hypertriglyceridemia documented in this encounter Results * (ABNORMAL) TRIGLYCERIDE (05/25/2021 12:52 PM HORSE STUD MANAGER) Pathologist [facility] TRIGLYCERIDE 3,973(H) <150 mg/dL 05/25/2021 2:00 PM HORSE STUD MANAGER [facility] Blood Venipuncture / Unknown 05/25/2021 12:52 PM HORSE STUD MANAGER 05/25/2021 12:52 PM HORSE STUD MANAGER [facility] - 05/25/2021 2:00 PM HORSE STUD MANAGER TRIGLYCERIDES ? mg/dL Normal ?< 150 Borderline High ?150 - 199 High ? 200 - 499 Very High ? >= 500 Based on AHA/NCEP Guidelines. Nicole Rosas MD [email or web address] Performing Organization Address [facility] de Phone Number [facility]# [id number] [address] [place] [address] * TRIGLYCERIDE (05/25/2021 12:04 PM HORSE STUD MANAGER) [facility] TRIGLYCERIDE 05/25/2021 2:19 PM HORSE STUD MANAGER [facility] Comment:Unable to evaluate d ue to lipemia. Blood Venipuncture / Unknown 05/25/2021 12:04 PM HORSE STUD MANAGER 05/25/2021 12:04 PM HORSE STUD MANAGER [facility] - 05/25/2021 2:19 PM HORSE STUD MANAGER TRIGLYCERIDES ? mg/dL Normal ?< 150 Borderline High ?150 - 199 High ? 200 - 499 Very High ? >= 500 Based on AHA/NCEP Guidelines. Nicole Rosas MD [email or web address] Performing Organization Address [facility] de Phone Number [facility] CLIA# [id number] [address] [place] [address] documented in this encounter Visit Diagnoses Diagnosis [...] 1200, Routine New Bag 05/25/2021 11:56 AM HORSE STUD MANAGER 2,000 mg 100 mL/hr heparin, porcine (pf) 10 unit/mL IV syringe 20 Units 20 Units, IV, ONE TIME ONLY, 1 dose, On Katie 05/25/21 at 1200, Routine Given 05/25/2021 12:40 PM HORSE STUD MANAGER 20 Units heparin, porcine lock flush (pf) 100 unit/mL injection 500 Units 500 Units, IV, ONE TIME ONLY, 1 dose, On Katie 05/25/21 at 1200, Routine Given 05/25/2021 12:40 PM HORSE STUD MANAGER 500 Units heparin, porcine lock flush (pf) 100 unit/mL injection 500 Units 500 Units, IV, ONE TIME ONLY, 1 dose, On Katie 05/25/21 at 1200, Routine Given 05/25/2021 12:40 PM HORSE STUD MANAGER 500 Units sodium chloride flush injection 10 mL 10 mL, IV, ONE TIME ONLY, 1 dose, On Katie 05/25/21 at 1200, Routine Given 05/25/2021 12:42 PM HORSE STUD MANAGER 10 mL sodium chloride flush injection 10 mL 10 mL, IV, ONE TIME ONLY, 1 dose, On Katie 05/25/21 at 1200, Routine Given 05/25/2021 12:40 PM HORSE STUD MANAGER 10 mL sodium chloride flush injection 20 mL 20 mL, IV, ONE TIME ONLY, 1 dose, On Katie 05/25/21 at 1200, Routine Given 05/25/2021 12:40 PM HORSE STUD MANAGER 20 mL documented in this encounter Additional Health Concerns Assessment Noted Time PHQ-9 Depression Total Score: 1 08/11/19 21 6:30 PM CDT documented as of this encounter Care Teams Automatic Glove Former Relationship Specialty Start Date End Date Guerrero Middleton PA-C PCP - General Physician Business Account Specialist 02/13/18 documented as of this encounter
--- OUTSIDE RECORDS SUMMARY | 2024-05-03 21:50 | XMS_ITS | Encounter Summary ---
Author Organization [facility] Address [address] Orozco: Epic Prelude ADT [place] [address] Care Team Providers Care Dean Of Boys Name Role Phone Guerrero Middleton PA-C Primary [...] 08/21/2018 How often do you attend [facility] or mandaen services? Never 08/21/2018 Do [...] [facility] [place] [facility] - [facility] [address] [place] [address] Marlys Mayer MD [address] [place] [address] documented as of this encounter Visit Diagnoses Not on filedocumented in this encounter Additional Health Concerns Assessment Noted Time PHQ-9 Depression Total Score: 1 08/11/19 21 6:30 PM CDT documented as of this encounter Care Teams Dean Of Boys Relationship Specialty Start Date End Date Guerrero Middleton PA-C PCP - General Physician Oiler And Greaser 02/13/18 documented as of this encounter
--- OUTSIDE RECORDS SUMMARY | 2024-05-03 21:50 | XMS_ITS | Encounter Summary ---
Author Organization [facility] Address [address] Orozco: Epic Prelude ADT [place] [address] Care Team Providers Care Tire Fabric Impregnating Range Tender Name Role Phone Guerrero Middleton PA-C [...] you attend [facility] or amish services? Never 08/21/2018 Do [...] [facility] [address] [place] [address] Marlys Mayer MD [address] [place] [address] documented as of this encounter Visit Diagnoses Not on filedocumented in this encounter Additional Health Concerns Assessment Noted Time PHQ-9 Depression Total Score: 1 08/11/19 21 6:30 PM CDT documented as of this encounter Care Teams Tire Fabric Impregnating Range Tender Relationship Specialty Start Date End Date Guerrero Middleton PA-C PCP - General Physician Eating Disorder Psychologist 02/13/18 documented as of this encounter
--- OUTSIDE RECORDS SUMMARY | 2024-05-03 21:50 | XMS_ITS | Encounter Summary ---
Author Organization [facility] Address [address] [place] [address] Care Team Providers Care Building Stonecutter Name Role Phone Guerrero Middleton PA-C Primary Care Provide r Encounter Details Date Type Department Care Team (Latest Contact Info) Description 08/21/2021 9:30 AM CDT - 08/21/2021 11:59 PM CDT Hospital Encounter [facility] Donor Services [facility] [address] [place] [address] Phoenix Riddle MD [address] Department [place] [address] Discharge Disposition: Home or Self [...] often do you attend chur ch or episcopalian services? Never 08/21/2018 Do you belong to [...] tablet TAKE 1 TABLET BY MOUTH EVERY TAILOR FITTER 30 Tablet 06/01/2021 09/19/2023 Vascepa 1 gram [...] procedure. Procedure performed with albumin from the station engineer we had been using prior to her [...] throughout the procedure. ?? Phoenix Riddle MD Sap Bpc Architect, therapeutic apheresis service [phone] documented in this encounter Plan of Treatment Upcoming Encounters Date Type Department Care Team (Late st Contact Info) Description 09/14/2024 3:00 PM CDT Office Visit [facility] Heart and Vascular - [facility] [address] [place] [address] Marlys Mayer MD [address] [place] [address] documented as of this encounter Procedures Procedure Name Priority Date/Time Associated Diagnosis Comments TRIGLYCERIDE Routine 08/21/2021 10:11 AM CDT Hypertriglyceridemia TRIGLYCERIDE Routine 08/21/2021 9:23 AM CDT Hypertriglyceridemia documented in this encounter Results * (ABNORMAL) TRIGLYCERIDE (08/21/2021 10:11 AM CDT) TRIGLYCERIDE 2,782(H) <150 mg/dL 08/21/2021 11:52 AM CDT [facility] Blood Venipuncture / Unknown 08/21/2021 10:11 AM CDT 08/21/2021 10:49 AM CDT Narrative [facility] - 08/21/2021 11:52 AM CDT TRIGLYCERIDES ? mg/dL Normal ?< 150 Borderline High ?150 - 199 High ? 200 - 499 Very High ? >= 500 Based on AHA/NCEP Guidelines. Phoenix Riddle MD CHEMISTRY ORDERABLE S Performing Organization Address [facility] de Phone Number [facility] [employer] [facility]# [id number] [address] [place] [address] * (ABNORMAL) TRIGLYCERIDE (08/21/2021 9:23 AM CDT) TRIGLYCERIDE >4,425(H) <150 mg/dL 08/21/2021 10:53 AM CDT [facility] [employer] [facility] Blood Venipuncture / Unknown 08/21/2021 9:23 AM CDT 08/21/2021 9:26 AM CDT Narrative [facility] [employer] [facility] - 08/21/2021 10:53 AM CDT TRIGLYCERIDES ? mg/dL Normal ?< 150 Borderline High ?150 - 199 High ? 200 - 499 Very High ? >= 500 Based on AHA/NCEP Guidelines. Phoenix Riddle MD Visualant ORDERABLE S Performing Organization Address [facility] de Phone Number [employer] [facility]# [id number] [address] [place] [address] documented in this encounter Visit Diagnoses Diagnosis [...] documented as of this encounter Care Teams Building Stonecutter Relationship Specialty Start Date End Date Guerrero Middleton PA-C PCP - General Physician Newspaper Columnist 02/13/18 documented as of this encounter
--- OUTSIDE RECORDS SUMMARY | 2024-05-03 21:50 | XMS_ITS | Encounter Summary ---
Author Organization [facility] Address [address] [place] [address] Care Team Providers Care Motor Pool Clerk Name Role Phone Guerrero Middleton PA-C Primary Care Provide r Reason for Visit * Auth/Cert Specialty Diagnoses / Procedures Referred By Tequila t Referred To Contact Multi Specialty [facility] Surgical [address] [place] [address] Referral ID Status Reason Start Date Expiration Date Visits Re quested Visits Authorized [id number] 1 1 Encounter Details Date Type Department Care Team (Latest Contact Info) Description 08/24/2021 9:18 AM CDT - 08/24/2021 11:59 PM CDT Hospital Encounter [facility] Donor Services [facility] [address] [place] [address] Marlys Mayer MD [address] [place], [place] [id number] Phoenix Riddle MD [address] [place] [address] Discharge Disposition: Home or Self [...] tablet TAKE 1 TABLET BY MOUTH EVERY SHOE CLEANER 30 Tablet 06/01/2021 09/19/2023 Vascepa 1 gram [...] patient status. Ms. Jones drove herself to [facility] today for scheduled PLEX. She has been [...] [facility] Heart and Vascular - [facility] [address] [place] [address] Marlys Mayer MD [address] [place] [address] documented as of this encounter Procedures Procedure Name Priority Date/Time Associated Diagnosis Comments TRIGLYCERIDE Routine 08/24/2021 9:46 AM CDT Hypertriglyceridemia documented in this encounter Results * (ABNORMAL) TRIGLYCERIDE (08/24/2021 9:46 AM CDT) TRIGLYCERIDE 4,244(H) <150 mg/dL 08/24/2021 10:45 AM CDT [facility] Blood Collection / Unknown 08/24/2021 9:46 AM CDT 08/24/2021 9:49 AM CDT Narrative [facility] - 08/24/2021 10:45 AM CDT TRIGLYCERIDES ? mg/dL Normal ?< 150 Borderline High ?150 - 199 High ? 200 - 499 Very High ? >= 500 Based on AHA/NCEP Guidelines. Phoenix Riddle MD CHEMISTRY ORDERABLE S Performing Organization Address [facility]/ZIP Co de Phone Number [facility]# [id number] [address] [facility] [place] [address] documented in this encounter Visit Diagnoses Diagnosis [...] mL documented in this encounter Care Teams Motor Pool Clerk Relationship Specialty Start Date End Date Guerrero Middleton PA-C PCP - General Physician Rn Hospice 02/13/18 documented as of this encounter
--- OUTSIDE RECORDS SUMMARY | 2024-05-03 21:50 | XMS_ITS | Encounter Summary ---
Author Organization [facility] Address [address] [place] [address] Care Team Providers Care [facility] Office Supervisor Name Role Phone Guerrero Middleton PA-C Primary Care Provide r Encounter Details Date Type Department Care Team (Latest Contact Info) Description 04/05/2021 9:30 AM BOOKMOBILE DRIVER - 04/05/2021 11:59 PM [facility] Donor Services [address] [address] Nicole Rosas MD [address] [place] [address] Discharge Disposition: Home or Self Care [...] often do you attend chur ch or yazidism services? Never 08/21/2018 Do you belong to [...] COVID-19? No / Unsure 04/05/2021 9:16 AM BOOKMOBILE DRIVER documented as of this encounter Last Filed Vital Signs Vital Sign Reading Time Taken Comments Blood Pressure 107/73 04/05/2021 11:00 AM BOOKMOBILE DRIVER Pulse 83 04/05/2021 11:00 AM BOOKMOBILE DRIVER Temperature 37.1 ??C (98.7 ??F) 04/05/2021 11:[address] Respiratory Rate 16 04/05/2021 11:00 AM BOOKMOBILE DRIVER Oxygen Saturation - - Inhaled Oxygen Concentration - - Weight 83.5 kg (184 lb) 04/05/2021 9:44 AM BOOKMOBILE DRIVER Height 165.1 cm (5' 5 ) 04/05/2021 9:44 AM BOOKMOBILE DRIVER Body Mass Index 30.62 04/05/2021 9:44 AM BOOKMOBILE DRIVER documented in this encounter Medications at Time [...] tablet TAKE 1 TABLET BY MOUTH EVERY DRILL FOREMAN 30 Tablet 5 12/07/2020 06/01/2021 Vascepa 1 [...] procedure well. Next procedure scheduled for 04/10/2021. MOBILE DRIVER * Nicole Mondragon MD - 04/05/2021 9:30 [...] throughout the procedure. ?? Nicole Mondragon MD Certification And Selection Specialist, therapeutic apheresis service [phone] MOBILE DRIVER documented in this encounter Plan of Treatment Upcoming Encounters Date Type Department Care Team (Late st Contact Info) Description 09/14/2024 3:00 PM CDT Office Visit [facility] Heart and Vascular - [place] [address] [place] [address] Marlys Mayer MD [address] [place] [address] documented as of this encounter Procedures Procedure Name Priority Date/Time Associated Diagnosis Comments TRIGLYCERIDE Routine 04/05/2021 11:37 AM BOOKMOBILE DRIVER Hypertriglyceridemia TRIGLYCERIDE Routine 04/05/2021 10:08 AM BOOKMOBILE DRIVER Hypertriglyceridemia documented in this encounter Results * (ABNORMAL) TRIGLYCERIDE (04/05/2021 11:37 AM BOOKMOBILE DRIVER) TRIGLYCERIDE 1,831(H) <150 mg/dL 04/05/2021 12:46 PM BOOKMOBILE DRIVER [facility] Blood Venipuncture / Unknown 04/05/2021 11:37 AM BOOKMOBILE DRIVER 04/05/2021 11:52 AM BOOKMOBILE DRIVER Narrative [facility] - 04/05/2021 12:46 PM BOOKMOBILE DRIVER TRIGLYCERIDES ? mg/dL Normal ?< 150 Borderline High ?150 - 199 High ? 200 - 499 Very High ? >= 500 Based on AHA/NCEP Guidelines. Nicole Rosas MD CHEMISTRY YONI SERRANO Performing Organization Address City/State/[facility] Co de Phone Number [facility] [employer] [facility]# [id number] [address] [place] [address] * (ABNORMAL) TRIGLYCERIDE (04/05/2021 10:08 AM BOOKMOBILE DRIVER) TRIGLYCERIDE >4,425(H) <150 mg/dL 04/05/2021 12:32 PM BOOKMOBILE DRIVER [facility] [employer] [facility] Blood Venipuncture / Unknown 04/05/2021 10:08 AM BOOKMOBILE DRIVER 04/05/2021 10:12 AM BOOKMOBILE DRIVER Narrative [facility] [employer] [facility] - 04/05/2021 12:32 PM BOOKMOBILE DRIVER TRIGLYCERIDES ? mg/dL Normal ?< 150 Borderline High ?150 - 199 High ? 200 - 499 Very High ? >= 500 Based on AHA/NCEP Guidelines. Nicole Rosas MD CHEMISTRY YONI SERRANO Performing Organization Address [facility] Co de Phone Number [facility] [employer] [facility]# [id number] [address] [place] [address] documented in this encounter Visit Diagnoses Diagnosis [...] 1135, Routine New Bag 04/05/2021 9:39 AM BOOKMOBILE DRIVER 2,000 mg 50 mL/ hr heparin, porcine (pf) 10 unit/mL IV syringe 20 Units 20 Units, IV, ONE TIME ONLY, 1 dose, On Sat04/05/21 at 0930, Routine Given 04/05/2021 10:24 AM BOOKMOBILE DRIVER 20 Units heparin, porcine lock flush (pf) 100 unit/mL injection 500 Units 500 Units, IV, ONE TIME ONLY, 1 dose, On Sat04/05/21 at 0945, Routine Given 04/05/2021 10:39 AM BOOKMOBILE DRIVER 500 Units heparin, porcine lock flush (pf) 100 unit/mL injection 500 Units 500 Units, IV, ONE TIME ONLY, 1 dose, On Sat04/05/21 at 0930, Routine Given 04/05/2021 10:22 AM BOOKMOBILE DRIVER 500 Units sodium chloride flush injection 10 mL 10 mL, IV, ONE TIME ONLY, 1 dose, On Sat04/05/21 at 0930, Routine Given 04/05/2021 10:23 AM BOOKMOBILE DRIVER 10 mL sodium chloride flush injection 10 mL 10 mL, IV, ONE TIME ONLY, 1 dose, On Sat04/05/21 at 0930, Routine Given 04/05/2021 10:39 AM BOOKMOBILE DRIVER 10 mL sodium chloride flush injection 20 mL 20 mL, IV, ONE TIME ONLY, 1 dose, On Sat04/05/21 at 0930, Routine Given 04/05/2021 10:22 AM BOOKMOBILE DRIVER 20 mL documented in this encounter Additional Health Concerns Assessment Noted Time PHQ-9 Depression Total Score: 1 08/11/19 21 6:30 PM CDT documented as of this encounter Care Teams [facility] Office Supervisor Relationship Specialty Start Date End Date Guerrero Middleton PA-C PCP - General Physician Graduate Rn 02/13/18 documented as of this encounter
--- OUTSIDE RECORDS SUMMARY | 2024-05-03 21:50 | XMS_ITS | Encounter Summary ---
Author Organization [facility] Address [address] [place] [address] Care Team Providers Care Power Electronics Research Engineer Name Role Phone Guerrero Middleton PA-C Primary Care Provide r Reason for Visit * Reason Comments Medication Refill Encounter Details Date Type Department Care Team (Late st Contact Info) Description 03/29/2021 Refill [facility] Endocrinology [address] [place] [address] Prudence Gates MD [address] [place] [address] Social History Tobacco Use Types Packs/Day Years [...] often do you attend chur ch or anabaptism services? Never 08/21/2018 Do you belong to [...] COVID-19? No / Unsure 03/20/2021 9:28 AM FOAMING MACHINE OPERATOR documented as of this encounter Miscellaneous Notes * Telephone Encounter - Lexus Iyer - 03/30/2021 10:24 AM CST ANGELES: 11/09/2020 NOV: 04/19/2021 ING MACHINE OPERATOR documented in this encounter Plan of Treatment Upcoming Encounters Date Type Department Care Team (Late st Contact Info) Description 09/14/2024 3:00 PM CDT Office Visit [facility] [address] [place] [address] Marlys Mayer MD [address] [place] [address] documented as of this encounter Visit Diagnoses Not on filedocumented in this encounter Additional Health Concerns Assessment Noted Time PHQ-9 Depression Total Score: 1 08/11/19 21 6:30 PM CDT documented as of this encounter Care Teams Power Electronics Research Engineer Relationship Specialty Start Date End Date Guerrero Middleton PA-C PCP - General Physician Freelance Court Stenographer 02/13/18 documented as of this encounter
--- OUTSIDE RECORDS SUMMARY | 2024-05-03 21:50 | XMS_ITS | Encounter Summary ---
Author Organization [facility] Address [address] Orozco: Epic Prelude ADT [place] [address] Care Team Providers Care Lawn Care Worker Name Role Phone Guerrero Middleton PA-C [...] attend [facility] or evangelical services? Never 08/21/2018 Do you [...] COVID-19? No / Unsure 05/25/2021 11:18 AM GRAPHIC EDITOR documented as of this encounter Plan of Treatment Upcoming Encounters Date Type Department Care Team (Late st Contact Info) Description 09/14/2024 3:00 PM CDT Office Visit [facility] [address] [place] [address] Marlys Mayer MD [address] [place], [place] [id number] documented as of this encounter Visit Diagnoses Not on filedocumented in this encounter Additional Health Concerns Assessment Noted Time PHQ-9 Depression Total Score: 1 08/11/19 21 6:30 PM CDT documented as of this encounter Care Teams Lawn Care Worker Relationship Specialty Start Date End Date Guerrero Middleton PA-C PCP - General Physician Vine Fruit Farming Supervisor 02/13/18 documented as of this encounter
--- OUTSIDE RECORDS SUMMARY | 2024-05-03 21:50 | XMS_ITS | Encounter Summary ---
Author Organization [facility] Address [address] Orozco: Epic Prelude ADT [place] [address] Care Team Providers Care Basket Sorter Name Role Phone Guerrero Middleton PA-C [...] How often do you attend [facility] or episcopalian services? Never 08/21/2018 Do you [...] COVID-19? No / Unsure 04/05/2021 9:16 AM PHYSICAL SCIENCES PROFESSOR documented as of this encounter Plan of Treatment Upcoming Encounters Date Type Department Care Team (Late st Contact Info) Description 09/14/2024 3:00 PM CDT Office Visit [facility] [address] [place] [address] Marlys Mayer MD [address] [place], [place] [address] documented as of this encounter Visit Diagnoses Not on filedocumented in this encounter Additional Health Concerns Assessment Noted Time PHQ-9 Depression Total Score: 1 08/11/19 21 6:30 PM CDT documented as of this encounter Care Teams Basket Sorter Relationship Specialty Start Date End Date Guerrero Middleton PA-C PCP - General Physician Upper Stitcher 02/13/18 documented as of this encounter
--- OUTSIDE RECORDS SUMMARY | 2024-05-03 21:50 | XMS_ITS | Encounter Summary ---
Author Organization [facility] Address [address] [place] [address] Care Team Providers Care Topographical Field Assistant Name Role Phone Guerrero Middleton PA-C Primary Care Provide r Reason for Visit * Reason Onset Date Comments Needs Appointment 07/27/2021 Encounter Details Date Type Department Care Team (Late st Contact Info) Description 07/27/2021 Telephone [facility] Donor Services [facility] [address] [place] [address] Phoenix Riddle MD [address] [place] [address] Needs Appointment Social History Tobacco [...] [facility] [address] [place] [address] Marlys Mayer MD [address] [place] [address] documented as of this encounter Visit Diagnoses Not on filedocumented in this encounter Additional Health Concerns Assessment Noted Time PHQ-9 Depression Total Score: 1 08/11/19 21 6:30 PM CDT documented as of this encounter Care Teams Topographical Field Assistant Relationship Specialty Start Date End Date Guerrero Middleton PA-C PCP - General Physician Leather Carver 02/13/18 documented as of this encounter
--- OUTSIDE RECORDS SUMMARY | 2024-05-03 21:50 | XMS_ITS | Encounter Summary ---
Author Organization [facility] Address [address] [place] [address] Care Team Providers Care Editor Producer Name Role Phone Guerrero Middleton PA-C Primary Care Provide r Reason for Visit * Reason Comments Medication Refill Encounter Details Date Type Department Care Team (Late st Contact Info) Description 05/31/2021 Refill [facility] Endocr[facility]ology [address] [place] [address] Prudence Gates MD [address] [place] [address] Social History Tobacco Use Types Packs/Day Years [...] [facility] [address] [place] [address] Marlys Mayer MD [address] [place] [address] documented as of this encounter Visit Diagnoses Not on filedocumented in this encounter Additional Health Concerns Assessment Noted Time PHQ-9 Depression Total Score: 1 08/11/19 21 6:30 PM CDT documented as of this encounter Care Teams Editor Producer Relationship Specialty Start Date End Date Guerrero Middleton PA-C PCP - General Physician Bridal Sales Consultant 02/13/18 documented as of this encounter
--- OUTSIDE RECORDS SUMMARY | 2024-05-03 21:50 | XMS_ITS | Encounter Summary ---
Author Organization [facility] Address [address] Orozco: Epic Prelude ADT [place] [address] Care Team Providers Care Training Consultant Name Role Phone Guerrero Middleton PA-C [...] do you attend [facility] or mosque services? Never 08/21/2018 Do [...] - [facility] [address] [place] [address] Marlys Mayer MD [address] [place] [address] documented as of this encounter Visit Diagnoses Not on filedocumented in this encounter Care Teams Training Consultant Relationship Specialty Start Date End Date Guerrero Middleton PA-C PCP - General Physician White Sourer 02/13/18 documented as of this encounter
--- OUTSIDE RECORDS SUMMARY | 2024-05-03 21:51 | XMS_ITS | Encounter Summary ---
Author Organization [facility] Address [address] [place] [address] Care Team Providers Care Corrugator Operator Helper Name Role Phone Guerrero Middleton PA-C Primary Care Provide r Reason for Visit * Reason Comments Medication Refill Encounter Details Date Type Department Care Team (Late st Contact Info) Description 01/26/2021 Refill [facility] Endocrinology [address] [place] [address] Prudence Gates MD [address] [place] [address] Social History Tobacco Use Types Packs/Day Years [...] [facility] - [facility] [address] [place] [address] Marlys Mayer MD [address] [place] [address] documented as of this encounter Visit Diagnoses Not on filedocumented in this encounter Additional Health Concerns Assessment Noted Time PHQ-9 Depression Total Score: 1 08/11/19 21 6:30 PM CDT documented as of this encounter Care Teams Corrugator Operator Helper Relationship Specialty Start Date End Date Guerrero Middleton PA-C PCP - General Physician Music Minister 02/13/18 documented as of this encounter
--- OUTSIDE RECORDS SUMMARY | 2024-05-03 21:51 | XMS_ITS | Encounter Summary ---
Author Organization [facility] Address [address] [place] [address] Care Team Providers Care Leather Toggler Name Role Phone Guerrero Middleton PA-C Primary Care Provide r Encounter Details Date Type Department Care Team (Latest Contact Info) Description 02/09/2021 10:30 AM CDT - 02/09/2021 11:59 PM CDT Hospital Encounter [facility] Donor Services [facility] [address] [place] [address] Phoenix Riddle MD [address] [place] [address] Discharge Disposition: Home or Self [...] tablet TAKE 1 TABLET BY MOUTH EVERY SOURCING ASSOCIATE 30 Tablet 5 12/07/2020 06/01/2021 Vascepa 1 [...] 02/13 (not 02/10), prior to [facility] ?? I have seen and examined the patient, reviewed pertinent notes and records, and remained immediately available throughout the procedure. ?? Phoenix Riddle MD Vehicle Window Tinter, therapeutic apheresis service [phone] documented in this encounter Plan of Treatment Upcoming Encounters Date Type Department Care Team (Late st Contact Info) Description 09/14/2024 3:00 PM CDT Office Visit [facility] Heart and Vascular - [place] [address] [place] [address] Marlys Mayer MD [address] [place] [address] documented as of this encounter Procedures Procedure [...] 704(H) <150 mg/dL 02/09/2021 12:44 PM CDT [facility] [employer]IB [employer] [facility] Blood Collection / Unknown 02/09/2021 12:09 PM CDT 02/09/2021 12:09 PM CDT Narrative [facility] [employer] [facility] - 02/09/2021 12:44 PM CDT TRIGLYCERIDES ? mg/dL Normal ?< 150 Borderline High ?150 - 199 High ? 200 - 499 Very High ? >= 500 Based on AHA/NCEP Guidelines. Phoenix Riddle MD CHEMISTRY ORDERABLE S [facility] [employer] [facility] CLIA# [id number] [address] [place] [address] * (ABNORMAL) TRIGLYCERIDE (02/09/2021 10:51 AM CDT) TRIGLYCERIDE 2,041(H) <150 mg/dL 02/09/2021 11:46 AM CDT [facility] Blood Collection / Unknown 02/09/2021 10:51 AM CDT 02/09/2021 10:51 AM CDT Narrative [facility] - 02/09/2021 11:46 AM CDT TRIGLYCERIDES ? mg/dL Normal ?< 150 Borderline High ?150 - 199 High ? 200 - 499 Very High ? >= 500 Based on AHA/NCEP Guidelines. Phoenix Riddle MD CHEMISTRY ORDERABLE S [facility] [employer] [facility] CLIA# [id number] [address] [place] [address] documented in this encounter Visit Diagnoses Diagnosis [...] documented as of this encounter Care Teams Leather Toggler Relationship Specialty Start Date End Date Guerrero Middleton PA-C PCP - General Physician Collar Tailor 02/13/18 documented as of this encounter
--- OUTSIDE RECORDS SUMMARY | 2024-05-03 21:51 | XMS_ITS | Encounter Summary ---
Author Organization [facility] Address [address] [place] [address] Care Team Providers Care Retail Advertising Sales Manager Name Role Phone Guerrero Middleton PA-C Primary Care Provide r Encounter Details Date Type Department Care Team (Latest Contact Info) Description 03/15/2021 9:30 AM EYELET RIVETER - 03/15/2021 11:59 PM [facility] Hospital Encounter [facility] Donor Services [facility] [address] [place] [address] Phoenix Riddle MD [address] [facility] Department [place] [address] Discharge Disposition: Home or Self [...] Sign Reading Time Taken Comments Blood Pressure 142/85 03/15/2021 11:26 AM EYELET RIVETER Pulse 83 03/15/2021 11:26 AM EYELET RIVETER Temperature 36.8 ??C (98.3 ??F) 03/15/2021 11:[address] Respiratory Rate 18 03/15/2021 11:26 AM EYELET RIVETER Oxygen Saturation - - Inhaled Oxygen Concentration [...] tablet TAKE 1 TABLET BY MOUTH EVERY SCHOOL TRANSPORTATION SUPERVISOR 30 Tablet 5 12/07/2020 06/01/2021 Vascepa 1 [...] Progress Notes * Melodie Vasquez RN - 03/15/2021 9:30 AM CST Plasma exchange completed today using R/L bard port for draw and return. 1.0 volume, 100% fluid balance using 5% Albumin as replacement fluid completed. 2 grams calcium gluconate given intra procedure. Triglyceride lab drawn pre/post procedure. Patient tolerated procedure well. Next procedure scheduled for 03/20/2021. ET RIVETER * Phoenix Riddle MD - 03/15/2021 9:30 AM CST CC: ??45??yo female undergoing prophylaxis for??hypertriglyceridemic pancreatitis in the setting ofrecurrent necrotizing pancreatitis requires??plasma exchange. ?? Interval history: Received COVID and flu vaccines 2 weeks ago, with some mild generalized achiness and fatigue. Mild fatigue and headaches persist, patient attributes to likely elevated triglyceride levels. ?? Procedure note: 1.0 volume plasma exchange with 5% albumin replacement, 100% fluid balance, 2 g calcium gluconate during procedure.?Patient tolerated the procedure without complaints or adverse events. ?? 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 Exam: ?? General Appearance: - Well nourished, no acute distress - Fatigued but not lethargic Skin: - R??and L??chest port sites??show mild erythema towards end of procedure, no exudates Respiratory: - Unlabored breathing Neuro: - Alert and Oriented ?Labs: 02/13/21 WBC 6.9 hbg 12.2 hct 37.8 PLT 249 ?? 02/09/21 Preprocedure triglycerides: ??2041 mg/dL 02/09/21 Postprocedure triglycerides: ??704 mg/dL 02/13/21 Preprocedure triglycerides: ??502 mg/dL 02/13/21 Postprocedure triglycerides: ??340 mg/dL 02/22/21 Preprocedure triglycerides: 1,640 mg/dL 02/22/21 Postprocedure triglycerides: 592 mg/dL 03/01/21 Preprocedure triglycerides: >4,425 mg/dL 03/01/21 Postprocedure triglycerides: 1,832 mg/dL 03/15/21 Preprocedure triglycerides: 3542 mg/dL 03/15/21 Postprocedure triglycerides: 1419 mg/dL ?? A&P: 1. 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 2. Continue maintenance PLEX with 1.0 volume exchange, 5% albumin replacement, 100% fluid volume, 2g calcium gluconate during procedure on a weekly basis, or more frequent based on symptoms and triglyceride levels. 3. Next procedure scheduled 03/20/21 ?? I have seen and examined the patient, reviewed pertinent notes and records, and remained immediately available throughout the procedure. ?? Phoenix Riddle MD Media Services Coordinator, therapeutic apheresis service [phone] ET RIVETER documented in this encounter Plan of Treatment Upcoming Encounters Date Type Department Care Team (Late st Contact Info) Description 09/14/2024 3:00 PM CDT Office Visit [facility] Heart and Vascular - [place] [address] [place] [id number] Marlys Mayer MD [address] [place], [place] [id number] documented as of this encounter Procedures Procedure Name Priority Date/Time Associated Diagnosis Comments TRIGLYCERIDE Routine 03/15/2021 11:22 AM EYELET RIVETER Hypertriglyceridemia TRIGLYCERIDE Routine 03/15/2021 10:15 AM EYELET RIVETER Hypertriglyceridemia documented in this encounter Results * (ABNORMAL) TRIGLYCERIDE (03/15/2021 11:22 AM EYELET RIVETER) TRIGLYCERIDE 1,419(H) <150 mg/dL 03/15/2021 12:24 PM EYELET RIVETER [facility] Blood Venipuncture / Unknown 03/15/2021 11:22 AM EYELET RIVETER 03/15/2021 11:30 AM EYELET RIVETER Narrative [facility] - 03/15/2021 12:24 PM EYELET RIVETER TRIGLYCERIDES ? mg/dL Normal ?< 150 Borderline High ?150 - 199 High ? 200 - 499 Very High ? >= 500 Based on AHA/NCEP Guidelines. Phoenix Riddle MD CHEMISTRY ORDERABLE S [facility] CLIA# [id number] [address] [place] [place] [address] [place] [address] * (ABNORMAL) TRIGLYCERIDE (03/15/2021 10:15 AM EYELET RIVETER) TRIGLYCERIDE 3,542(H) <150 mg/dL 03/15/2021 11:44 AM EYELET RIVETER [facility] Blood Venipuncture / Unknown 03/15/2021 10:15 AM EYELET RIVETER 03/15/2021 10:40 AM EYELET RIVETER Narrative [facility] - 03/15/2021 11:44 AM EYELET RIVETER TRIGLYCERIDES ? mg/dL Normal ?< 150 Borderline High ?150 - 199 High ? 200 - 499 Very High ? >= 500 Based on AHA/NCEP Guidelines. Phoenix Riddle MD CHEMISTRY ORDERABLE S [facility]# [id number] [address] [place] [address] documented in this encounter Visit Diagnoses Diagnosis Hypertriglyceridemia- Primary Pure hyperglyceridemia documented in this encounter Administered Medications Inactive Administered Medications - up to 3 most recent administrations Medication Order MAR Action Action Date Dose Rate Site calcium GLUCONATE 2,000 mg in sodium chloride (iso-osmotic) 100 mL IVPB 2,000 mg, IV, ONE TIME ONLY, 1 dose, On Sat03/15/21 at 0930, Routine New Bag 03/15/2021 10:18 AM EYELET RIVETER 2,000 mg 100 mL/hr heparin, porcine (pf) 10 unit/mL IV syringe 20 Units 20 Units, IV, ONE TIME ONLY, 1 dose, On Sat03/15/21 at 0930, Routine, Tube to station 516, blood bank Given 03/15/2021 11:14 AM EYELET RIVETER 20 Units heparin, porcine lock flush (pf) 100 unit/mL injection 500 Units 500 Units, IV, ONE TIME ONLY, 1 dose, On Sat03/15/21 at 0930, Routine, Tube to station 516, blood bank Given 03/15/2021 11:15 AM EYELET RIVETER 500 Units heparin, porcine lock flush (pf) 100 unit/mL injection 500 Units 500 Units, IV, ONE TIME ONLY, 1 dose, On Sat03/15/21 at 0930, Routine, Tube to station 516, blood bank Given 03/15/2021 11:13 AM EYELET RIVETER 500 Units sodium chloride flush injection 10 mL 10 mL, IV, ONE TIME ONLY, 1 dose, On Sat03/15/21 at 0930, Routine Given 03/15/2021 11:14 AM EYELET RIVETER 10 mL sodium chloride flush injection 10 mL 10 mL, IV, ONE TIME ONLY, 1 dose, On Sat03/15/21 at 0930, Routine Given 03/15/2021 11:15 AM EYELET RIVETER 10 mL sodium chloride flush injection 20 mL 20 mL, IV, ONE TIME ONLY, 1 dose, On Sat03/15/21 at 0930, Routine Given 03/15/2021 11:13 AM EYELET RIVETER 20 mL documented in this encounter Additional Health Concerns Assessment Noted Time PHQ-9 Depression Total Score: 1 08/11/19 21 6:30 PM CDT documented as of this encounter Care Teams Retail Advertising Sales Manager Relationship Specialty Start Date End Date Guerrero Middleton PA-C PCP - General Physician Cracker Dough Mixer 02/13/18 documented as of this encounter
--- OUTSIDE RECORDS SUMMARY | 2024-05-03 21:51 | XMS_ITS | Encounter Summary ---
Author Organization [facility] Address [address] [place] [address] Care Team Providers Care Industrial Controls Technician Name Role Phone Guerrero Middleton PA-C Primary Care Provide r Encounter Details Date Type Department Care Team (Latest Contact Info) Description 02/22/2021 9:30 AM CDT - 02/22/2021 11:59 PM CDT Hospital Encounter [facility] Donor Services [address] [address] Nicole Rosas MD [address] [place] [address] Discharge Disposition: Home or Self Care [...] tablet TAKE 1 TABLET BY MOUTH EVERY CYBERATHLETE 30 Tablet 5 12/07/2020 06/01/2021 Vascepa 1 [...] throughout the procedure. ?? Nicole Mondragon MD Head Of Global Strategic Partnerships, therapeutic apheresis service [phone] documented in this encounter Plan of Treatment Upcoming Encounters Date Type Department Care Team (Late st Contact Info) Description 09/14/2024 3:00 PM CDT Office Visit [facility] Heart and Vascular - [facility] [address] [address] [facility] [address] [place] [address] Marlys Mayer MD [address] [place] [address] documented as of this encounter Procedures Procedure [...] 592(H) <150 mg/dL 02/22/2021 12:17 PM CDT [facility] [employer] [facility] Blood Venipuncture / Unknown 02/22/2021 11:41 AM CDT 02/22/2021 11:51 AM CDT Narrative [facility] [employer] [facility] - 02/22/2021 12:17 PM CDT TRIGLYCERIDES ? mg/dL Normal ?< 150 Borderline High ?150 - 199 High ? 200 - 499 Very High ? >= 500 Based on AHA/NCEP Guidelines. Nicole Rosas MD CHEMISTRY YONI SERRANO Performing Organization Address [facility] de Phone Number [facility] [employer] [facility]# [id number] [address] [place] [address] * (ABNORMAL) TRIGLYCERIDE (02/22/2021 10:23 AM CDT) TRIGLYCERIDE 1,640(H) <150 mg/dL 02/22/2021 11:13 AM CDT [facility] [employer] [facility] Blood Venipuncture / Unknown 02/22/2021 10:23 AM CDT 02/22/2021 10:25 AM CDT Narrative [facility] [employer] [facility] - 02/22/2021 11:13 AM CDT TRIGLYCERIDES ? mg/dL Normal ?< 150 Borderline High ?150 - 199 High ? 200 - 499 Very High ? >= 500 Based on AHA/NCEP Guidelines. Nicole Rosas MD CHEMISTRY YONI SERRANO Performing Organization Address [facility] Phone Number [facility] [employer] [facility]# [id number] [address] [place] [address] documented in this encounter Visit Diagnoses Diagnosis [...] documented as of this encounter Care Teams Industrial Controls Technician Relationship Specialty Start Date End Date Guerrero Middleton PA-C PCP - General Physician Card Game Operator 02/13/18 documented as of this encounter
--- OUTSIDE RECORDS SUMMARY | 2024-05-03 21:51 | XMS_ITS | Encounter Summary ---
Author Organization [facility] Address [address] [place] [address] Care Team Providers Care Plasma Processing Centrifuge Operator Name Role Phone Guerrero Middleton PA-C Primary Care Provide r Reason for Visit * Auth/Cert Specialty Diagnoses / Procedures Referred By Conthardik t Referred To Contact Laboratory [address] [address] Referral ID Status Reason Start Date Expiration Date Visits Re quested Visits Authorized [id number] 1 1 Encounter Details Date Type Department Care Team (Latest Contact Info) Description 03/01/2021 9:30 AM CDT - 03/01/2021 11:59 PM CDT Hospital Encounter [facility] [address] [place] [phone] Nicole Rosas MD [address] [place] [address] Discharge Disposition: Home or Self Care [...] tablet TAKE 1 TABLET BY MOUTH EVERY RESIDENTIAL DOOR INSTALLER 30 Tablet 5 12/07/2020 06/01/2021 Vascepa 1 [...] throughout the procedure. ?? Nicole Mondragon MD Project Estimator, therapeutic apheresis service [phone] documented in this encounter Plan of Treatment Upcoming Encounters Date Type Department Care Team (Late st Contact Info) Description 09/14/2024 3:00 PM CDT Office Visit [facility] Heart and Vascular - [place] [address] [place] [address] Marlys Mayer MD [address] [place] [address] documented as of this encounter [...] 1,832(H) <150 mg/dL 03/01/2021 12:06 PM CDT [facility] Blood Venipuncture / Unknown 03/01/2021 11:03 AM CDT 03/01/2021 11:06 AM CDT [facility] [facility] - 03/01/2021 12:06 PM CDT TRIGLYCERIDES ? mg/dL Normal ?< 150 Borderline High ?150 - 199 High ? 200 - 499 Very High ? >= 500 Based on AHA/NCEP Guidelines. Nicole SERRANO Performing Organization Address [facility] Co de Phone Number [facility] [id number] [address] [id number] * (ABNORMAL) TRIGLYCERIDE (03/01/2021 9:55 AM CDT) TRIGLYCERIDE >4,425(H) <150 mg/dL 03/01/2021 11:37 AM CDT [facility] [employer] [facility] Comment:Verified by repeat a nalysis. Blood Venipuncture / Unknown 03/01/2021 9:55 AM CDT 03/01/2021 9:56 AM CDT [facility] [facility] - 03/01/2021 11:37 AM CDT TRIGLYCERIDES ? mg/dL Normal ?< 150 Borderline High ?150 - 199 High ? 200 - 499 Very High ? >= 500 Based on AHA/NCEP Guidelines. Nicole SERRANO Performing Organization Address [facility] Co de Phone Number [facility] [employer] [facility]# [id number] [address] [place] [address] documented in this encounter Visit Diagnoses Diagnosis [...] documented as of this encounter Care Teams Plasma Processing Centrifuge Operator Relationship Specialty Start Date End Date Guerrero Middleton PA-C PCP - General Physician Truss Designer 02/13/18 documented as of this encounter
--- OUTSIDE RECORDS SUMMARY | 2024-05-03 21:51 | XMS_ITS | Encounter Summary ---
Author Organization [facility] Address [address] [place] [address] Care Team Providers Care United [place] Marshal Name Role Phone Guerrero Middleton PA-C Primary Care Provide r Encounter Details Date Type Department Care Team (Latest Contact Info) Description 01/26/2021 2:10 PM CDT - 01/26/2021 11:59 PM CDT Hospital Encounter [facility] Donor Services [address] [address] Nicole oRsas MD [address] [place] [address] Discharge Disposition: Home or Self Care [...] Sign Reading Time Taken Comments Blood Pressure 115/78 01/26/2021 3:47 PM CDT Pulse 101 01/26/2021 3:47 PM CDT Temperature 36.7 ??C (98.1 ??F) 01/26/2021 3:47 PM CD T Respiratory Rate 18 01/26/2021 3:47 PM CDT Oxygen Saturation - - Inhaled [...] tablet TAKE 1 TABLET BY MOUTH EVERY ENVIRONMENTAL PROGRAMS MANAGER 30 Tablet 5 12/07/2020 06/01/2021 Vascepa [...] Progress Notes * Daniel Whitehead RN - 01/26/2021 2:30 PM CDT Plasma exchange completed today using right and left chest BARD ports for draw and return. 1.0 volume, 100% fluid balance using 5% Albumin as replacement fluid completed. 2 grams calcium gluconate given intra procedure. Patient tolerated procedure well. Next procedure scheduled for 01/27/[address] Mondragon and Dr. Riddle as outpatient. * Nicole Mondragon MD - 01/26/2021 2:30 PM CDT CC: ??45??yo female undergoing prophylaxis for??hypertriglyceridemic pancreatitis in the setting ofrecurrent necrotizing pancreatitis requires??plasma exchange. ?? Interval history:??Patient??admitted 12/26/20 for acute on chronic pancreatitis. Was scheduled for 12/28/20 PLEX as an outpatient. Post-hospitalization interval and most recent PLEX (01/25/21) uneventful. Ms. Jones called our team as she was beginning to have stomach pain of the sort that precedes an episode of pancreatitis. I asked her to return for PLEX this afternoon. ?? PMH:??Familial hypertriglyceridemia (associated with prior episodes [...] breathing Neuro: - Alert and Oriented x??4 -??Conversant but appears stressed ?Labs: 01/02/21??WBC??5.7, hemoglobin??12.3, hematocrit??38.0,?platelets??221 01/25/21 Preprocedure triglycerides: cancelled (lipemia >3,000) 01/25/21 Postprocedure triglycerides: >4,425 mg/dL 01/26/21 Preprocedure triglycerides 3,872 mg/dL 01/26/21 Postprocedure triglycerides 1, 691 mg/dL ?? A&P: 1. 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 Patient has??recurrent necrotizing pancreatitis??and was??initiated on prophylactic plasmaexchange for prevention of hypertriglyceridemic pancreatitis starting 11/12/18??in consultation withDrs. Shani.??(ASFA category III indication for apheresis).??Patient now follows with Dr. Gates with endocrine. 2. ??We will perform a 1.0 volume plasma exchange with all albumin replacement with 100% fluid balance with 2 g calcium gluconate over the procedure. ?? 3. Due to elevated pre and post procedure triglycerides and concern for emerging symptoms of pancreatitis, we will plan for PLEX on 01/27 and 02/01 in an effort to avoid hospitalization. Ms. Jones expressed understanding that should her symptoms worsen she should proceed to the ED. Replacement fluids may include FFP to replenish coagulation factors after consecutive-day PLEX. ?? I have seen and examined the patient, reviewed pertinent notes and records, and remained immediately available throughout the procedure. ?? Nicole Mondragon MD Credit Underwriter, therapeutic apheresis service [phone] ?? Procedure??notes: Patient tolerated procedure well.?? documented in this encounter Plan of Treatment Upcoming Encounters Date Type Department Care Team (Late st Contact Info) Description 09/14/2024 3:00 PM CDT Office Visit [facility] Heart and Vascular - [place] [address] [place] [address] Marlys Mayer MD [address] [place] [address] documented as of this encounter Procedures Procedure Name Priority Date/Time Associated Diagnosis Comments TYPE AND SCREEN Routine 01/26/2021 3:52 PM CDT Hypertriglyceridemia TRIGLYCERIDE Stat 01/26/2021 3:51 PM CDT Hypertriglyceridemia Chronic pancreatitis Moderate protein-calorie [...] mellitus History of gestational diabetes Metabolic syndrome PROTIME-INR Stat 01/26/2021 3:50 PM CDT Hypertriglyceridemia Chronic pancreatitis Moderate protein-calorie [...] of gestational diabetes Metabolic syndrome TRIGLYCERIDE Routine 01/26/2021 2:37 PM CDT Hypertriglyceridemia documented in this encounter Results * TYPE AND SCREEN (01/26/2021 3:52 PM CDT) ABO GROUP B 01/26/2021 6:03 PM CDT [email or web address] -- [facility] RH (D) TYPE Positive 01/26/2021 6:03 PM CDT [email or web address] -- [facility] ANTIBODY SCREEN Negative 01/26/2021 6:03 PM CDT [email or web address] -- [facility] Blood Collection / Unknown 01/26/2021 3:52 PM CDT 01/26/2021 4:10 PM CDT Phoenix Riddle MD BLOOD BANK ORDERABL ES [facility] LABORATORY SERVICES -- [facility]# [id number] [address] [facility] [place] [place] [address] * (ABNORMAL) TRIGLYCERIDE (01/26/2021 3:51 PM CDT) TRIGLYCERIDE 1,691(H) <150 mg/dL 01/26/2021 5:10 PM CDT [facility] LABORATORY SERVICES - [facility] Blood Collection / Unknown 01/26/2021 3:51 PM CDT 01/26/2021 3:51 PM CDT Narrative [facility] - 01/26/2021 5:10 PM CDT TRIGLYCERIDES ? mg/dL Normal ?< 150 Borderline High ?150 - 199 High ? 200 - 499 Very High ? >= 500 Based on AHA/NCEP Guidelines. Nicole Rosas MD CHEMISTRY YONI SERRANO [facility] [employer] [facility] CLIA# [id number] [address] [place] [place] [address] * PROTIME-INR (01/26/2021 3:50 PM CDT) PROTIME 15.0 12.7 - 15.1 Seconds 01/26/2021 4:17 PM CDT [facility] INR 1.1 0.9 - 1.1 01/26/2021 4:17 PM CDT [facility] Blood Collection / Unknown 01/26/2021 3:50 PM CDT 01/26/2021 3:50 PM CDT Narrative [facility] - 01/26/2021 4:17 PM CDT INR Therapeutic Range: Adult: ?? [...] prosthetic ?cardiac valves and hereditary clotting disorders. [place] (<3 days) therapeutic ranges have not been established. Nicole Rosas MD HEMATOLOGY ORD AMMON Performing Organization Address [facility]/ZIP Co de Phone Number [facility]# [id number] [address] [place] [address] * (ABNORMAL) TRIGLYCERIDE (01/26/2021 2:37 PM CDT) TRIGLYCERIDE 3,872(H) <150 mg/dL 01/26/2021 3:35 PM CDT [facility] [employer] [facility] Blood Collection / Unknown 01/26/2021 2:37 PM CDT 01/26/2021 2:37 PM CDT Narrative [facility] [employer] [facility] - 01/26/2021 3:35 PM CDT TRIGLYCERIDES ? mg/dL Normal ?< 150 Borderline High ?150 - 199 High ? 200 - 499 Very High ? >= 500 Based on AHA/NCEP Guidelines. Nicole Rosas MD CHEMISTRY ORDTima SERRANO Performing Organization Address [facility] Co de Phone Number [facility] [employer] [facility]# [id number] [address] [place] [address] documented in this encounter Visit Diagnoses Diagnosis [...] ONE TIME ONLY, 1 dose, On Katie 01/26/21 at 1430, Routine New Bag 01/26/2021 2:39 PM CDT 2,000 mg 100 mL /hr heparin, porcine (pf) 10 unit/mL IV syringe 20 Units 20 Units, IV, ONE TIME ONLY, 1 dose, On Katie 01/26/21 at 1430, Routine, PLEASE TUBE TO 516, THANKS! Given 01/26/2021 4:09 PM CDT 20 Units heparin, porcine lock flush (pf) 100 unit/mL injection 500 Units 500 Units, IV, ONE TIME ONLY, 1 dose, On Katie 01/26/21 at 1430, Routine, PLEASE TUBE TO 516, THANKS! Given 01/26/2021 4:10 PM CDT 500 Units heparin, porcine lock flush (pf) 100 unit/mL injection 500 Units 500 Units, IV, ONE TIME ONLY, 1 dose, On Katie 01/26/21 at 1430, Routine, PLEASE TUBE TO 516,THANKS! Given 01/26/2021 4:08 PM CDT 500 Units sodium chloride flush injection 10 mL 10 mL, IV, ONE TIME ONLY, 1 dose, On Katie 01/26/21 at 1430, Routine Given 01/26/2021 4:09 PM CDT 10 mL sodium chloride flush injection 10 mL 10 mL, IV, ONE TIME ONLY, 1 dose, On Katie 01/26/21 at 1430, Routine Given 01/26/2021 4:09 PM CDT 10 mL sodium chloride flush injection 20 mL 20 mL, IV, ONE TIME ONLY, 1 dose, On Katie 01/26/21 at 1430, Routine Given 01/26/2021 4:08 PM CDT 20 mL documented in this encounter Additional Health Concerns Assessment Noted Time PHQ-9 Depression Total Score: 1 08/11/19 21 6:30 PM CDT documented as of this encounter Care Teams United [place] Marshal Relationship Specialty Start Date End Date Guerrero Middleton PA-C PCP - General Physician Courtroom Reporter 02/13/18 documented as of this encounter
--- OUTSIDE RECORDS SUMMARY | 2024-05-03 21:51 | XMS_ITS | Encounter Summary ---
Author Organization [facility] Address [address] Orozco: Epic Prelude ADT [place] [address] Care Team Providers Care Pile Driving Nozzleman Name Role Phone Guerrero Middleton PA-C Primary [...] do you attend [facility] or rastafari services? Never 08/21/2018 Do [...] [facility] [address] [place] [address] Marlys Mayer MD [address] [place] [address] documented as of this encounter Visit Diagnoses Not on filedocumented in this encounter Additional Health Concerns Assessment Noted Time PHQ-9 Depression Total Score: 1 08/11/19 21 6:30 PM CDT documented as of this encounter Care Teams Pile Driving Nozzleman Relationship Specialty Start Date End Date Guerrero Middleton PA-C PCP - General Physician Quarter Folder 02/13/18 documented as of this encounter
--- OUTSIDE RECORDS SUMMARY | 2024-05-03 21:51 | XMS_ITS | Encounter Summary ---
Author Organization [facility] Address [address] Orozco: Epic Prelude ADT [place] [address] Care Team Providers Care Bridge Mechanic Name Role Phone Guerrero Middleton PA-C [...] often do you attend [facility] or latter day services? Never 08/21/2018 Do you belong to any clubs o r organizations such as restoration groups, unions, fraternal or athletic groups, or [...] Description 09/14/2024 3:00 PM CDT Office Visit [facility] Heart and Vascular - [facility] [address] [place] [address] Marlys Mayer MD [address] [place] [address] documented as of this encounter Visit Diagnoses Not on filedocumented in this encounter Additional Health Concerns Assessment Noted Time PHQ-9 Depression Total Score: 1 08/11/19 21 6:30 PM CDT documented as of this encounter Care Teams Bridge Mechanic Relationship Specialty Start Date End Date Guerrero Middleton PA-C PCP - General Physician Metal Machine Operator 02/13/18 documented as of this encounter
--- OUTSIDE RECORDS SUMMARY | 2024-05-03 21:51 | XMS_ITS | Encounter Summary ---
Author Organization [facility] Address [address] [place] [address] Care Team Providers Care Security System Engineer Name Role Phone Guerrero Middleton PA-C Primary Care Provide r Encounter Details Date Type Department Care Team (Latest Contact Info) Description 01/27/2021 9:00 AM CDT - 01/27/2021 11:59 PM CDT Hospital Encounter [facility] Donor Services [facility] [address] [place] [address] Phoenix Riddle MD [address] [facility] [place] [address] Discharge Disposition: Home or Self [...] tablet TAKE 1 TABLET BY MOUTH EVERY SINK MAKER 30 Tablet 5 12/07/2020 06/01/2021 Vascepa [...] throughout the procedure. ?? Phoenix Riddle MD Collections Curator, therapeutic apheresis service [phone] documented in this encounter Plan of Treatment Upcoming Encounters Date Type Department Care Team (Late st Contact Info) Description 09/14/2024 3:00 PM CDT Office Visit [facility] Heart and Vascular - [place] [address] [place] [address] Marlys Mayer MD [address] [place] [address] documented as of this encounter Procedures Procedure [...] 640(H) <150 mg/dL 01/27/2021 11:38 AM CDT [facility] Blood Collection / Unknown 01/27/2021 11:04 AM CDT 01/27/2021 11:04 AM CDT [facility] [employer] [facility] - 01/27/2021 11:38 AM CDT TRIGLYCERIDES ? mg/dL Normal ?< 150 Borderline High ?150 - 199 High ? 200 - 499 Very High ? >= 500 Based on AHA/NCEP Guidelines. Phoenix Riddle MD CHEMISTRY ORDERABLE S [facility] [employer]# [id number] [address] [place] [address] * (ABNORMAL) TRIGLYCERIDE (01/27/2021 9:38 AM CDT) TRIGLYCERIDE 1,646(H) <150 mg/dL 01/27/2021 10:34 AM CDT [facility] [employer] Blood Collection / Unknown 01/27/2021 9:38 AM CDT 01/27/2021 9:39 AM CDT [facility] . [place] - 01/27/2021 10:34 AM CDT TRIGLYCERIDES ? mg/dL Normal ?< 150 Borderline High ?150 - 199 High ? 200 - 499 Very High ? >= 500 Based on AHA/NCEP Guidelines. Phoenix Riddle MD CHEMISTRY ORDERABLE S Performing Organization Address [facility] de Phone Number [facility] - [facility]# [id number] [address] [place] [phone] * PREPARE FRESH FROZEN PLASMA (01/26/2021 5:22 PM CDT) COMPONENT TYPE [id number] [facility] COMPONENT IDENTIFICATION [id number] [facility] ABO B [facility] RH POS [facility] COMPONENT STATUS Transfused [facility] COMPONENT EXPIRATION DATE/TIME [facility] COMPONENT CODING SYSTEM [address] [facility] 01/26/2021 5:22 PM CDT Phoenix Riddle MD LAB TRANSFUSION ORD ERABLES Performing Organization Address [facility] de Phone Number [facility] CLIA# [id number] [address] [facility] [place] [place] [id number] * PREPARE FRESH FROZEN PLASMA (01/26/2021 5:22 PM CDT) COMPONENT TYPE [id number] [facility] COMPONENT IDENTIFICATION [id number] [facility] ABO B [facility] RH POS [facility] COMPONENT STATUS Transfused [facility] COMPONENT EXPIRATION DATE/TIME [facility] COMPONENT CODING SYSTEM [address] [facility] 01/26/2021 5:22 PM CDT Phoenix Riddle MD LAB TRANSFUSION ORD ERABLES Performing Organization Address [facility]/State/ZIP Co de Phone Number [facility]OR[facility]ORY SERVICES -- [facility] CLIA# [id number] [address] [place] [address] * PREPARE FRESH FROZEN PLASMA (01/26/2021 5:22 PM CDT) COMPONENT TYPE [id number] [facility] COMPONENT IDENTIFICATION [id number] [facility] ABO B [facility] RH POS [facility] COMPONENT STATUS Returned [facility] COMPONENT EXPIRATION DATE/TIME [facility] COMPONENT CODING SYSTEM [address] [facility] 01/26/2021 5:22 PM CDT Phoenix Riddle MD LAB TRANSFUSION ORD ERABLES Performing Organization Address [facility] Co de Phone Number [facility] CLIA# [id number] [address] [facility] [place] [place] [address] * PREPARE FRESH FROZEN PLASMA (01/26/2021 5:22 PM CDT) COMPONENT TYPE [id number] [facility] COMPONENT IDENTIFICATION [id number] [facility] ABO B [facility] RH POS [facility] COMPONENT STATUS Returned [facility] COMPONENT EXPIRATION DATE/TIME [facility] COMPONENT CODING SYSTEM [address]300 [facility] Other, specify 01/26/2021 5: 22 PM CDT Phoenix Riddle MD LAB TRANSFUSION ORD ERABLES [facility] -- [facility]# [id number] [address] [place] [address] documented in this encounter Visit Diagnoses Diagnosis [...] documented as of this encounter Care Teams Security System Engineer Relationship Specialty Start Date End Date Guerrero Middleton PA-C PCP - General Physician [employer] History Teacher 02/13/18 documented as of this encounter
--- OUTSIDE RECORDS SUMMARY | 2024-05-03 21:51 | XMS_ITS | Encounter Summary ---
Author Organization [facility] Address [address] [place] [address] Care Team Providers Care Head Athletic Trainer Name Role Phone Guerrero Middleton PA-C Primary Care Provide r Encounter Details Date Type Department Care Team (Latest Contact Info) Description 02/01/2021 9:30 AM CDT - 02/01/2021 11:59 PM CDT Hospital Encounter [facility] Donor Services [facility] [address] [place] [address] Phoenix Riddle MD [address] [facility] Department [place] [address] Discharge Disposition: Home or Self [...] tablet TAKE 1 TABLET BY MOUTH EVERY LEATHER SHAVER 30 Tablet 5 12/07/2020 06/01/2021 Vascepa 1 [...] her hypertriglyceridemia, advised to consult with her events assistant. ?? Procedure note: 1.0 volume plasma exchange [...] throughout the procedure. ?? Phoenix Riddle MD Rib Puller, therapeutic apheresis service [phone] documented in this encounter Plan of Treatment Upcoming Encounters Date Type Department Care Team (Late st Contact Info) Description 09/14/2024 3:00 PM CDT Office Visit [facility] Heart and Vascular - [facility] [address] [place] [address] Marlys Mayer MD [address] [place] [address] documented as of this encounter Procedures Procedure Name Priority Date/Time Associated Diagnosis Comments TRIGLYCERIDE Routine 02/01/2021 11:18 AM CDT Hypertriglyceridemia TRIGLYCERIDE Routine 02/01/2021 9:58 AM CDT Hypertriglyceridemia documented in this encounter Results * (ABNORMAL) TRIGLYCERIDE (02/01/2021 11:18 AM CDT) TRIGLYCERIDE 1,070(H) <150 mg/dL 02/01/2021 12:25 PM CDT [facility] Blood Collection / Unknown 02/01/2021 11:18 AM CDT 02/01/2021 11:29 AM CDT Narrative [facility] - 02/01/2021 12:25 PM CDT TRIGLYCERIDES ? mg/dL Normal ?< 150 Borderline High ?150 - 199 High ? 200 - 499 Very High ? >= 500 Based on AHA/NCEP Guidelines. Phoenix Riddle MD CHEMISTRY ORDERABLE S [facility] CLIA# [id number] [address] [place] [address] * (ABNORMAL) TRIGLYCERIDE (02/01/2021 9:58 AM CDT) TRIGLYCERIDE 2,631(H) <150 mg/dL 02/01/2021 11:09 AM CDT [facility] Blood Collection / Unknown 02/01/2021 9:58 AM CDT 02/01/2021 10:07 AM CDT Narrative [facility] - 02/01/2021 11:09 AM CDT TRIGLYCERIDES ? mg/dL Normal ?< 150 Borderline High ?150 - 199 High ? 200 - 499 Very High ? >= 500 Based on AHA/NCEP Guidelines. Phoenix Riddle MD CHEMISTRY ORDERABLE S Performing Organization Address City/State/[facility] Co de Phone Number [facility] CLIA# [id number] [address] [facility] [place] [place] [address] documented in this encounter Visit Diagnoses Diagnosis [...] documented as of this encounter Care Teams Head Athletic Trainer Relationship Specialty Start Date End Date Guerrero Middleton PA-C PCP - General Physician Exchange Floor Manager 02/13/18 documented as of this encounter
--- OUTSIDE RECORDS SUMMARY | 2024-05-03 21:51 | XMS_ITS | Encounter Summary ---
Author Organization [facility] Address [address] [place] [address] Care Team Providers Care Bookkeeper Name Role Phone Guerrero Middleton PA-C Primary Care Provide r Encounter Details Date Type Department Care Team (Latest Contact Info) Description 02/08/2021 9:08 AM CDT - 02/08/2021 11:59 PM CDT Hospital Encounter [facility] Donor Services [facility] [address] [place] [address] Phoenix Riddle MD [address] [facility] Department [place] [address] Discharge Disposition: Home or Self [...] often do you attend chur ch or catholic services? Never 08/21/2018 Do you [...] tablet TAKE 1 TABLET BY MOUTH EVERY ROAD REPAIRER 30 Tablet 5 12/07/2020 06/01/2021 Vascepa 1 [...] throughout the procedure. ?? Phoenix Riddle MD Synthetic Resin Operator, therapeutic apheresis service [phone] documented in this encounter Plan of Treatment Upcoming Encounters Date Type Department Care Team (Late st Contact Info) Description 09/14/2024 3:00 PM CDT Office Visit [facility] Heart and Vascular - [place] [address] [place] [address] Marlys Mayer MD [address] [place], [place] [address] documented as of this encounter Procedures Procedure Name Priority Date/Time Associated Diagnosis Comments TRIGLYCERIDE Routine 02/08/2021 11:16 AM CDT Hypertriglyceridemia TRIGLYCERIDE Routine 02/08/2021 9:23 AM CDT Hypertriglyceridemia documented in this encounter Results * (ABNORMAL) TRIGLYCERIDE (02/08/2021 11:16 AM CDT) TRIGLYCERIDE 1,938(H) <150 mg/dL 02/08/2021 12:21 PM CDT [facility] Blood Collection / Unknown 02/08/2021 11:16 AM CDT 02/08/2021 11:54 AM CDT [facility] - 02/08/2021 12:21 PM CDT TRIGLYCERIDES ? mg/dL Normal ?< 150 Borderline High ?150 - 199 High ? 200 - 499 Very High ? >= 500 Based on AHA/NCEP Guidelines. Phoenix Riddle MD CHEMISTRY ORDERABLE S [facility]# [id number] [address] [place], [place] [id number] * (ABNORMAL) TRIGLYCERIDE (02/08/2021 9:23 AM CDT) TRIGLYCERIDE 4,309(H) <150 mg/dL 02/08/2021 10:12 AM CDT [place] [facility] Blood Collection / Unknown 02/08/2021 9:23 AM CDT 02/08/2021 9:25 AM CDT [facility] - 02/08/2021 10:12 AM CDT TRIGLYCERIDES ? mg/dL Normal ?< 150 Borderline High ?150 - 199 High ? 200 - 499 Very High ? >= 500 Based on AHA/NCEP Guidelines. Phoenix Riddle MD CHEMISTRY ORDERABLE S [facility]# [id number] [address] [facility] [place] [place] [address] documented in this encounter Visit Diagnoses Diagnosis [...] documented as of this encounter Care Teams Bookkeeper Relationship Specialty Start Date End Date Guerrero Middleton PA-C PCP - General Physician Stud Beef Cattle Farmer 02/13/18 documented as of this encounter
--- OUTSIDE RECORDS SUMMARY | 2024-05-03 21:51 | XMS_ITS | Encounter Summary ---
Author Organization [facility] Address [address] [place] [address] Care Team Providers Care Railcar Foreman Name Role Phone Guerrero Middleton PA-C Primary Care Provide r Encounter Details Date Type Department Care Team (Latest Contact Info) Description 02/13/2021 11:19 AM CDT - 02/13/2021 11:59 PM CDT Hospital Encounter [facility] Donor Services [address] [phone] Discharge Disposition: Home or Self Care Social [...] often do you attend chur ch or sabianist services? Never 08/21/2018 Do you [...] tablet TAKE 1 TABLET BY MOUTH EVERY BLASTING MACHINE OPERATOR 30 Tablet 5 12/07/2020 06/01/2021 Vascepa 1 [...] throughout the procedure. ?? Phoenix Riddle MD Registered Pharmacy Technician, therapeutic apheresis service [phone] documented in this encounter Plan of Treatment Upcoming Encounters Date Type Department Care Team (Late st Contact Info) Description 09/14/2024 3:00 PM CDT Office Visit [facility] Heart and Vascular - [place] [address] [place] [address] Marlys Mayer MD [address] [place] [address] documented as of this encounter Procedures Procedure Name Priority Date/Time Associated Diagnosis Comments TRIGLYCERIDE Routine 02/13/2021 1:05 PM CDT Hypertriglyceridemi a CBC WITHOUT DIFFERENTIAL Routine 02/13/2021 11:31 AM CDT Hypertriglyceridemi a TRIGLYCERIDE Routine 02/13/2021 11:30 AM CDT Hypertriglyceridemi a documented in this encounter Results * (ABNORMAL) TRIGLYCERIDE (02/13/2021 1:05 PM CDT) TRIGLYCERIDE 340(H) <150 mg/dL 02/13/2021 1:39 PM CDT [facility] Blood Collection / Unknown 02/13/2021 1:05 PM CDT 02/13/2021 1:08 PM CDT [facility] [employer] [facility] - 02/13/2021 1:39 PM CDT TRIGLYCERIDES ? mg/dL Normal ?< 150 Borderline High ?150 - 199 High ? 200 - 499 Very High ? >= 500 Based on AHA/NCEP Guidelines. Phoenix Riddle MD CHEMISTRY ORDERABLE S [facility] [employer] [facility]# [id number] [address] [facility] [place] [address] * (ABNORMAL) CBC WITHOUT DIFFERENTIAL (02/13/2021 11:31 AM CDT) Pathologist [facility] WBC 6.9 4.0 - 9.8 K/uL 02/13/2021 11:43 AM CDT [facility] RBC 4.14 3.90 - 4.90 M/uL 02/13/2021 11:43 AM CDT [facility] HEMOGLOBIN 12.2 11.8 - 14.8 g/dL 02/13/2021 11:43 AM CDT [facility] LABORATORY SERVICES - [facility] HEMATOCRIT 37.8 35.5 - 44.0 % 02/13/2021 11:43 AM CDT [facility] LABORATORY SERVICES - . [facility] MCV 91.3 82.0 - 99.0 fL 02/13/2021 11:43 AM CDT [facility] LABORATORY SERVICES - [facility] MCH 29.5 27.2 - 32.6 pg 02/13/2021 11:43 AM CDT [facility] LABORATORY SERVICES - [facility] MCHC 32.3 31.5 - 35.5 g/dL 02/13/2021 11:43 AM CDT [facility] LABORATORY SERVICES - [facility] PLATELETS 249 140 - 350 K/uL 02/13/2021 11:43 AM CDT [facility] LABORATORY SERVICES - . [facility] MPV 8.9(L) 9.3 - 12.4 fL 02/13/2021 11:43 AM CDT [facility] LABORATORY SERVICES - [facility] RDW 15.3(H) 11.5 - 14.5 % 02/13/2021 11:43 AM CDT [facility] LABORATORY SERVICES - [facility] RDW-STDEV 51.0(H) 37.1 - 48.7 fL 02/13/2021 11:43 AM CDT [facility] LABORATORY SERVICES - [facility] Blood Collection / Unknown 02/13/2021 11:31 AM CDT 02/13/2021 11:32 AM CDT Phoenix Riddle MD HEMATOLOGY ORDERABL ES [facility] [id number] [address] [facility] [place] [address] * (ABNORMAL) TRIGLYCERIDE (02/13/2021 11:30 AM CDT) TRIGLYCERIDE 502(H) <150 mg/dL 02/13/2021 12:07 PM CDT [facility] LABORATORY SERVICES - [facility] Blood Collection / Unknown 02/13/2021 11:30 AM CDT 02/13/2021 11:32 AM CDT Narrative [facility] LABORATORY SERVICES - [facility] - 02/13/2021 12:07 PM CDT TRIGLYCERIDES ? mg/dL Normal ?< 150 Borderline High ?150 - 199 High ? 200 - 499 Very High ? >= 500 Based on AHA/NCEP Guidelines. Phoenix Riddle MD CHEMISTRY ORDERABLE S [facility] LABORATORY SERVICES - [facility]# [id number] [address] [place] [address] documented in this encounter Visit Diagnoses Diagnosis [...] documented as of this encounter Care Teams Railcar Foreman Relationship Specialty Start Date End Date Guerrero Middleton PA-C PCP - General Physician Broadcast News Producer 02/13/18 documented as of this encounter
--- OUTSIDE RECORDS SUMMARY | 2024-05-03 21:51 | XMS_ITS | Encounter Summary ---
Author Organization [facility] Address [address] Orozco: Epic Prelude ADT [place] [address] Care Team Providers Care Family Engagement Specialist Name Role Phone Guerrero Middleton PA-C [...] do you attend [facility] or sikh services? Never 08/21/2018 Do you [...] [facility] [place] [facility] [address] [address] [place] [address] Marlys Mayer MD [address] [place] [address] documented as of this encounter Visit Diagnoses Not on filedocumented in this encounter Additional Health Concerns Assessment Noted Time PHQ-9 Depression Total Score: 1 08/11/19 21 6:30 PM CDT documented as of this encounter Care Teams Family Engagement Specialist Relationship Specialty Start Date End Date Guerrero Middleton PA-C PCP - General Physician Front End Application Developer 02/13/18 documented as of this encounter
--- OUTSIDE RECORDS SUMMARY | 2024-05-03 21:51 | XMS_ITS | Encounter Summary ---
Author Organization [facility] Address [address] Orozco: Epic Prelude ADT [place] [address] Care Team Providers Care Diesel Service Apprentice Name Role Phone Guerrero Middleton PA-C [...] you attend [facility] or hindu services? Never 08/21/2018 Do [...] [facility] [address] [place] [address] Marlys Mayer MD [address] [place] [address] documented as of this encounter Visit Diagnoses Not on filedocumented in this encounter Additional Health Concerns Assessment Noted Time PHQ-9 Depression Total Score: 1 08/11/19 21 6:30 PM CDT documented as of this encounter Care Teams Diesel Service Apprentice Relationship Specialty Start Date End Date Guerrero Middleton PA-C PCP - General Physician International Affairs Vice President 02/13/18 documented as of this encounter
--- OUTSIDE RECORDS SUMMARY | 2024-05-03 21:51 | XMS_ITS | Encounter Summary ---
Author Organization [facility] Address [address] [place] [address] Care Team Providers Care Hand Sample Maker Name Role Phone Guerrero Middleton PA-C Primary Care Provide r Encounter Details Date Type Department Care Team (Latest Contact Info) Description 01/25/2021 9:10 AM CDT - 01/25/2021 11:59 PM CDT Hospital Encounter [facility] [address] [address] Nicole Rosas MD [address] [place] [id number] Discharge Disposition: Home or Self Care [...] tablet TAKE 1 TABLET BY MOUTH EVERY SCIENTIST/ENGINEER 30 Tablet 5 12/07/2020 06/01/2021 Vascepa 1 [...] throughout the procedure. ?? Nicole Mondragon MD Cake Knocker, therapeutic apheresis service [phone] ?? Procedure??notes: Patient tolerated procedure well.?? documented in this encounter Plan of Treatment Upcoming Encounters Date Type Department Care Team (Late st Contact Info) Description 09/14/2024 3:00 PM CDT Office Visit [facility] - [place] [address] [place] [address] Marlys Mayer MD [address] [place] [address] documented as of this encounter Procedures Procedure [...] >4,425(H) <150 mg/dL 01/25/2021 12:29 PM CDT [facility] [place] [facility] Blood Collection / Unknown 01/25/2021 11:17 AM CDT 01/25/2021 11:17 AM CDT Narrative [facility] - 01/25/2021 12:29 PM CDT TRIGLYCERIDES ? mg/dL Normal ?< 150 Borderline High ?150 - 199 High ? 200 - 499 Very High ? >= 500 Based on AHA/NCEP Guidelines. Nicole Rosas MD CHEMISTRY [facility]ONI [facility]# [id number] [address] [place] [id number] documented in this encounter Visit Diagnoses Diagnosis [...] documented as of this encounter Care Teams Hand Sample Maker Relationship Specialty Start Date End Date Guerrero Middleton PA-C PCP - General Physician Process Tank Tender 02/13/18 documented as of this encounter
--- OUTSIDE RECORDS SUMMARY | 2024-05-03 21:51 | XMS_ITS | Encounter Summary ---
Author Organization [facility] Address [address] [place]rozco: Epic Prelude ADT [place] [address] Care Team Providers Care Dolphin Researcher Name Role Phone Guerrero Middleton PA-C Primary [...] do you attend [facility] or church services? Never 08/21/2018 Do you [...] [facility] [address] [place] [address] Marlys Mayer MD [address] [place] [address] documented as of this encounter Visit Diagnoses Not on filedocumented in this encounter Additional Health Concerns Assessment Noted Time PHQ-9 Depression Total Score: 1 08/11/19 21 6:30 PM CDT documented as of this encounter Care Teams Dolphin Researcher Relationship Specialty Start Date End Date Guerrero Middleton PA-C PCP - General Physician Strike Plate Attacher 02/13/18 documented as of this encounter
--- OUTSIDE RECORDS SUMMARY | 2024-05-03 21:51 | XMS_ITS | Encounter Summary ---
Author Organization [facility] Address [address] [place] [address] Care Team Providers Care Contact Lens Technician Name Role Phone Guerrero Middleton PA-C Primary Care Provide r Reason for Visit * Reason Comments Abdominal Pain Pt reports chronic p ancreatitis and abdominal pain onset yesterday. +nasuea/vomiting/diarrhea and headaches. * Auth/Cert Specialty Diagnoses / Procedures Referred By Tequila t Referred To Contact Emergency Medicine [facility] Emergency Dept [address] [place] [address] Referral ID Status Reason Start Date Expiration Date Visits Re quested Visits Authorized [id number] 1 1 Encounter Details Date Type Department Care Team (Latest Contact Info) Description 12/26/2020 8:48 PM CDT - 01/02/2021 2:16 PM CDT Hospital Encounter [facility] [address] [place] [address] [place] [address] [place] [id number] Abel Peacock MD [address] [facility] [address] [place] [address] Araceli Santo MD [address] [place] [address] Manisha Cleveland MD [address] [place] [id number] Acute on chronic pancreatitis Discharge Disposition: Home [...] Cleveland MD - 01/02/2021 12:23 PM CDT [facility] Discharge Summary Patient Name Casandra Doss Age 45 y.o. Gender female Date of 1975 CSN [id number] Discharging Physician Manisha Cleveland MD PCP Guerrero [...] abd pain. Pt developed pain 2 days WEB CONTENT & SOCIAL MEDIA MANAGER associatedwith nausea/vomiting. Primary discharge diagnosis: Acute on [...] < 500 per Endocrinology management plan. Continue WEB CONTENT & SOCIAL MEDIA MANAGER statin 80 mg, fenofibrate 160 mg. Diet advance, pain improved, pt requesting dc home. ?? Familial hypertriglyceridemia- Continue WEB CONTENT & SOCIAL MEDIA MANAGER statin 80 mg, fenofibrate 160 mg. Outpt plasmapheresis. ?? Diabetes- Resume WEB CONTENT & SOCIAL MEDIA MANAGER Lantus 35 units twice daily, Metformin 500 [...] Jardiance TAKE 1 TABLET BY MOUTH EVERY BULK TANK DRIVER Signed by: Dr. Prudence Gates MD Quantity: 30 Tablet Refills: 5 Fish Oil-[place]-3 Fatty Acids 360-1,200 mg Capsule Take 2 [...] days after discharge. Signed: Manisha Cleveland MD [facility] For discharge questions please contact [...] tablet TAKE 1 TABLET BY MOUTH EVERY BULK TANK DRIVER 30 Tablet 5 12/07/2020 06/01/2021 Vascepa [...] not included. [facility] Progress Note Date of Admission: [...] 99 mg/dL COMMENT, GLU POC Notified RN/MD HOSPITAL FELLOW NAME COREY GARVEY POC GLUCOSE Result Value Ref Range POC GLUCOSE 167 (H) 74 - 99 mg/dL COMMENT, GLU POC Notified RN/MD HOSPITAL FELLOW NAME COREY GARVEY TRIGLYCERIDE Result Value Ref Range TRIGLYCERIDE 561 (H) <150 mg/dL POC GLUCOSE Result Value Ref Range POC GLUCOSE 127 (H) 74 - 99 mg/dL COMMENT, GLU POC Notified RN/MD HOSPITAL FELLOW NAME GURU COREYSHARON BRUMFIELD POC GLUCOSE Result Value Ref Range POC GLUCOSE 130 (H) 74 - 99 mg/dL COMMENT, GLU POC Notified RN/MD HOSPITAL FELLOW NAME SHERWIN, PUJA POC GLUCOSE Result Value Ref Range POC GLUCOSE 165 (H) 74 - 99 mg/dL COMMENT, GLU POC Notified RN/MD HOSPITAL FELLOW NAME COREY GARVEY POC GLUCOSE Result Value Ref Range POC GLUCOSE 138 (H) 74 - 99 mg/dL COMMENT, GLU POC Notified RN/MD HOSPITAL FELLOW NAME COREY GARVEY POC GLUCOSE Result Value Ref Range POC GLUCOSE 113 (H) 74 - 99 mg/dL HOSPITAL FELLOW NAME MARGARITA HOFFMAN POC GLUCOSE Result Value Ref Range POC GLUCOSE 117 (H) 74 - 99 mg/dL HOSPITAL FELLOW NAME MARGARITA HOFFMAN POC GLUCOSE Result Value Ref Range POC GLUCOSE 144 (H) 74 - 99 mg/dL HOSPITAL FELLOW NAME MARGARITA HOFFMAN POC GLUCOSE Result Value Ref Range POC GLUCOSE 176 (H) 74 - 99 mg/dL HOSPITAL FELLOW NAME YAMIL LUKE POC GLUCOSE Result Value Ref Range POC GLUCOSE 121 (H) 74 - 99 mg/dL HOSPITAL FELLOW NAME MARGARITA HOFFMAN POC GLUCOSE Result Value Ref Range POC GLUCOSE 138 (H) 74 - 99 mg/dL HOSPITAL FELLOW NAME PHYLLIS MADERA POC GLUCOSE Result Value Ref Range POC GLUCOSE 132 (H) 74 - 99 mg/dL HOSPITAL FELLOW NAME MARGARITA HOFFMAN POC GLUCOSE Result Value Ref Range POC GLUCOSE 131 (H) 74 - 99 mg/dL HOSPITAL FELLOW NAME MARGARITA HOFFMAN POC GLUCOSE Result Value Ref Range POC GLUCOSE 139 (H) 74 - 99 mg/dL HOSPITAL FELLOW NAME MARGARITA HOFFMAN POC GLUCOSE Result Value Ref Range POC GLUCOSE 168 (H) 74 - 99 mg/dL HOSPITAL FELLOW NAME MARGARITA HOFFMAN CBC WITH DIFFERENTIAL Result [...] GLUCOSE 164 (H) 74 - 99 mg/dL HOSPITAL FELLOW NAME MARGARITA HOFFMAN POC GLUCOSE Result Value Ref Range POC GLUCOSE 142 (H) 74 - 99 mg/dL HOSPITAL FELLOW NAME KATIE HERRERA POC GLUCOSE Result Value Ref Range POC GLUCOSE 134 (H) 74 - 99 mg/dL HOSPITAL FELLOW NAME SHAINA MCKEON POC GLUCOSE Result Value Ref Range POC GLUCOSE 113 (H) 74 - 99 mg/dL HOSPITAL FELLOW NAME ROMA MADRIGALISYN POC GLUCOSE Result Value Ref Range POC GLUCOSE 111 (H) 74 - 99 mg/dL HOSPITAL FELLOW NAME ROMA MADRIGALISYN POC GLUCOSE Result Value Ref Range POC GLUCOSE 90 74 - 99 mg/dL HOSPITAL FELLOW NAME ROMA MADRIGALISYN POC GLUCOSE Result Value Ref Range POC GLUCOSE 144 (H) 74 - 99 mg/dL HOSPITAL FELLOW NAME ROMA MADRIGALISYN Assessment/Plan of Actively Managed [...] date. Will follow afternoon triglyceride level. Continue WEB CONTENT & SOCIAL MEDIA MANAGER statin 80 mg, fenofibrate 160 mg. Dc [...] today. Will follow afternoon triglyceride level. Continue WEB CONTENT & SOCIAL MEDIA MANAGER statin 80 mg, fenofibrate 160 mg. Diabetes-uncontrolled. On WEB CONTENT & SOCIAL MEDIA MANAGER Lantus 35 units twice daily, Metformin 500 mg twice daily, Jardiance.Anion gap initially 20, down to 9. Serum ketones 1.6. Cont drip and today and follow afternoon triglycerides. Hypokalemia-resolved, cont to monitor Leukocytosis-noted. Neutrophil predominant. Continue to follow CBC. Now resolved. Depression with anxiety-continue WEB CONTENT & SOCIAL MEDIA MANAGER Celexa, Wellbutrin, trazodone GERD (gastroesophageal reflux disease)-continue WEB CONTENT & SOCIAL MEDIA MANAGER PPI Acquired hypothyroidism-continue WEB CONTENT & SOCIAL MEDIA MANAGER Synthroid 200 mcg Tobacco use-encourage cessation. On Wellbutrin WEB CONTENT & SOCIAL MEDIA MANAGER. Nicotine patch as needed. Quality/Safety/Core Measures/Disposition Planning: DVT Prophylaxis - Enoxaparin Pettit catheter:absent Current Code Status -Full Code Plan discussed with patient, questions answered. Current Planned Disposition - Dispo: home [facility] 7am-7pm After hours please call vHospitalist This note was transcribed using Energy speaking computerized voice recognition without a human aqua ammonia operator. This report may or may not have [...] not included. [facility] Progress Note Date of Admission: [...] 99 mg/dL COMMENT, GLU POC Notified RN/MD HOSPITAL FELLOW NAME JAZMINE BECK POC GLUCOSE Result Value Ref Range POC GLUCOSE 145 (H) 74 - 99 mg/dL COMMENT, GLU POC Notified RN/MD HOSPITAL FELLOW NAME DEMETRIO MARSHALL POC GLUCOSE Result Value Ref Range POC GLUCOSE 147 (H) 74 - 99 mg/dL COMMENT, GLU POC Notified RN/MD HOSPITAL FELLOW NAME DEMETRIO MARSHALL POC GLUCOSE Result Value Ref Range POC GLUCOSE 173 (H) 74 - 99 mg/dL HOSPITAL FELLOW NAME JAZMINE BECK POC GLUCOSE Result Value Ref Range POC GLUCOSE 150 (H) 74 - 99 mg/dL HOSPITAL FELLOW NAME JAZMINE BECK POC GLUCOSE Result Value Ref Range POC GLUCOSE 105 (H) 74 - 99 mg/dL COMMENT, GLU POC Notified RN/MD HOSPITAL FELLOW NAME SOY MCKEON POC GLUCOSE Result Value Ref Range POC GLUCOSE 94 74 - 99 mg/dL COMMENT, GLU POC Notified RN/MD HOSPITAL FELLOW NAME SOY MCKEON POC GLUCOSE Result Value Ref Range POC GLUCOSE 132 (H) 74 - 99 mg/dL COMMENT, GLU POC Notified RN/MD HOSPITAL FELLOW NAME SOY MCKEON POC GLUCOSE Result Value Ref Range POC GLUCOSE 99 74 - 99 mg/dL COMMENT, GLU POC Notified RN/MD HOSPITAL FELLOW NAME SOY MCKEON POC GLUCOSE Result Value Ref Range POC GLUCOSE 110 (H) 74 - 99 mg/dL HOSPITAL FELLOW NAME PHYLLIS MADERA POC GLUCOSE Result Value Ref Range POC GLUCOSE 108 (H) 74 - 99 mg/dL COMMENT, GLU POC Notified RN/MD HOSPITAL FELLOW NAME SOY MCKEON POC GLUCOSE Result Value Ref Range POC GLUCOSE 104 (H) 74 - 99 mg/dL HOSPITAL FELLOW NAME PHYLLIS MADERA POC GLUCOSE Result Value Ref Range POC GLUCOSE 110 (H) 74 - 99 mg/dL COMMENT, GLU POC Notified RN/MD HOSPITAL FELLOW NAME SYO MCKEON POC GLUCOSE Result Value Ref Range POC GLUCOSE 177 (H) 74 - 99 mg/dL COMMENT, GLU POC Notified RN/MD HOSPITAL FELLOW NAME SOY MCKEON POC GLUCOSE Result Value Ref Range POC GLUCOSE 110 (H) 74 - 99 mg/dL COMMENT, GLU POC Notified RN/MD HOSPITAL FELLOW NAME SOY MCKEON POC GLUCOSE Result Value Ref Range POC GLUCOSE 114 (H) 74 - 99 mg/dL HOSPITAL FELLOW NAME PHYLLIS MADERA POC GLUCOSE Result Value Ref Range POC GLUCOSE 96 74 - 99 mg/dL HOSPITAL FELLOW NAME SOY MCKEON CBC WITH DIFFERENTIAL Result [...] 99 mg/dL COMMENT, GLU POC Notified RN/MD HOSPITAL FELLOW NAME SOY MCKEON POC GLUCOSE Result Value Ref Range POC GLUCOSE 100 (H) 74 - 99 mg/dL HOSPITAL FELLOW NAME CATERINA PHYLLIS POC GLUCOSE Result Value Ref Range POC GLUCOSE 98 74 - 99 mg/dL HOSPITAL FELLOW NAME BRAD [facility]VICKI POC GLUCOSE Result Value Ref Range POC GLUCOSE 101 (H) 74 - 99 mg/dL COMMENT, GLU POC Notified RN/MD HOSPITAL FELLOW NAME COREY GARVEY POC GLUCOSE Result Value Ref Range POC GLUCOSE 98 74 - 99 mg/dL COMMENT, GLU POC Notified RN/MD HOSPITAL FELLOW NAME COREY GARVEY POC GLUCOSE Result Value Ref Range POC GLUCOSE 136 (H) 74 - 99 mg/dL HOSPITAL FELLOW NAME BRAD (parkW[facility]COP[facility]VICKI POC GLUCOSE Result Value Ref Range POC GLUCOSE 131 (H) 74 - 99 mg/dL COMMENT, GLU POC Notified RN/MD HOSPITAL FELLOW NAME COREY GARVEY Assessment/Plan of Actively Managed [...] continues today. Will follow afternoontriglyceride level. Continue WEB CONTENT & SOCIAL MEDIA MANAGER statin 80 mg, fenofibrate 160 mg. Oral [...] today. Will follow afternoon triglyceride level. Continue WEB CONTENT & SOCIAL MEDIA MANAGER statin 80 mg, fenofibrate 160 mg. Diabetes-uncontrolled. On WEB CONTENT & SOCIAL MEDIA MANAGER Lantus 35 units twice daily, Metformin 500 mg twice daily, Jardiance.Anion gap initially 20, down to 9. Serum ketones 1.6. Cont drip and today and follow afternoon triglycerides. Hypokalemia-resolved, cont to monitor Leukocytosis-noted. Neutrophil predominant. Continue to follow CBC. Now resolved. Depression with anxiety-continue WEB CONTENT & SOCIAL MEDIA MANAGER Celexa, Wellbutrin, trazodone GERD (gastroesophageal reflux disease)-continue WEB CONTENT & SOCIAL MEDIA MANAGER PPI Acquired hypothyroidism-continue WEB CONTENT & SOCIAL MEDIA MANAGER Synthroid 200 mcg Tobacco use-encourage cessation. On Wellbutrin WEB CONTENT & SOCIAL MEDIA MANAGER. Nicotine patch as needed. Quality/Safety/Core Measures/Disposition Planning: DVT Prophylaxis - Enoxaparin Pettit catheter:absent Current Code Status -Full Code Plan discussed with patient, questions answered. Current Planned Disposition - Dispo: home Manisha Cleveland MD [facility] Epic Secure Chat 7am-7pm After hours please call ospitalist This note was transcribed using Energy speaking computerized voice recognition without a human aqua ammonia operator. This report may or may not have [...] were not included. CLINICAL DIETITIAN PROGRESS NOTE [facility] Nutrition Risk Screen: hx malnutrition; 4 days [...] 0002) Body mass index is 30.77 kg/m??. [place] body weight: 57 kg (125 lb 10.6 [...] and as needed. ARMAND Larose Contact via Allmyapps Secure Chat Phone #: [phone] * Jazmine Beck RN - 12/30/2020 4:05 PM CDT 1500 - BG 145, no change in drip 1600 - BG 147, no change in drip * Manisha Cleveland MD - 12/30/2020 1:21 PM CDT Images from the original note were not included. [facility] Progress Note Date of Admission: [...] 99 mg/dL COMMENT, GLU POC Notified RN/MD HOSPITAL FELLOW NAME JAZMINE BECK POC GLUCOSE Result Value Ref Range POC GLUCOSE 58 (L) 74 - 99 mg/dL COMMENT, GLU POC Notified RN/MD HOSPITAL FELLOW NAME VITAKAYLYN LIGIA POC GLUCOSE Result Value Ref Range POC GLUCOSE 60 (L) 74 - 99 mg/dL COMMENT, GLU POC Notified RN/MD HOSPITAL FELLOW NAME JAZMINE BECK POC GLUCOSE Result Value Ref Range POC GLUCOSE 77 74 - 99 mg/dL HOSPITAL FELLOW NAME JAZMINE BECK POC GLUCOSE Result Value Ref Range POC GLUCOSE 126 (H) 74 - 99 mg/dL COMMENT, GLU POC Notified RN/MD HOSPITAL FELLOW NAME LIGIA EMERY POC GLUCOSE Result Value Ref Range POC GLUCOSE 130 (H) 74 - 99 mg/dL COMMENT, GLU POC Notified RN/MD HOSPITAL FELLOW NAME RUPERT LIGIA POC GLUCOSE Result Value Ref Range POC GLUCOSE 113 (H) 74 - 99 mg/dL COMMENT, GLU POC Notified RN/MD HOSPITAL FELLOW NAME LIGIA EMERY POC GLUCOSE Result Value Ref Range POC GLUCOSE 72 (L) 74 - 99 mg/dL HOSPITAL FELLOW NAME [facility] JEFFRY POC GLUCOSE Result Value Ref Range POC GLUCOSE 90 74 - 99 mg/dL HOSPITAL FELLOW NAME [facility] POC GLUCOSE Result Value Ref Range POC GLUCOSE 145 (H) 74 - 99 mg/dL HOSPITAL FELLOW NAME JERRYGurwinderJET POC GLUCOSE Result Value Ref Range POC GLUCOSE 181 (H) 74 - 99 mg/dL HOSPITAL FELLOW NAME [facility] POC GLUCOSE Result Value Ref Range POC GLUCOSE 176 (H) 74 - 99 mg/dL HOSPITAL FELLOW NAME [facility] POC GLUCOSE Result Value Ref Range POC GLUCOSE 166 (H) 74 - 99 mg/dL HOSPITAL FELLOW NAME [facility] POC GLUCOSE Result Value Ref Range POC GLUCOSE 134 (H) 74 - 99 mg/dL HOSPITAL FELLOW NAME [facility] POC GLUCOSE Result Value Ref Range POC GLUCOSE 147 (H) 74 - 99 mg/dL HOSPITAL FELLOW NAME JEFFRY CARO POC GLUCOSE Result Value Ref Range POC GLUCOSE 144 (H) 74 - 99 mg/dL HOSPITAL FELLOW NAME JEFFRY CARO POC GLUCOSE Result Value Ref Range POC GLUCOSE 110 (H) 74 - 99 mg/dL HOSPITAL FELLOW NAME JEFFRY CARO CBC WITH DIFFERENTIAL Result [...] GLUCOSE 104 (H) 74 - 99 mg/dL HOSPITAL FELLOW NAME JEFFRY CARO POC GLUCOSE Result Value Ref Range POC GLUCOSE 119 (H) 74 - 99 mg/dL HOSPITAL FELLOW NAME JEFFRY CARO POC GLUCOSE Result Value Ref Range POC GLUCOSE 167 (H) 74 - 99 mg/dL HOSPITAL FELLOW NAME EMILY BURGESSSAMI POC GLUCOSE Result Value Ref Range POC GLUCOSE 123 (H) 74 - 99 mg/dL HOSPITAL FELLOW NAME HUDSON REMY POC GLUCOSE Result Value Ref Range POC GLUCOSE 136 (H) 74 - 99 mg/dL HOSPITAL FELLOW NAME JENIFEREMILYBROOKE GLEN BEHAVIORAL HOSPITALKathy POC GLUCOSE Result Value Ref Range POC GLUCOSE 122 (H) 74 - 99 mg/dL HOSPITAL FELLOW NAME JENIFERDOREEN POC GLUCOSE Result Value Ref Range POC GLUCOSE 106 (H) 74 - 99 mg/dL HOSPITAL FELLOW NAME DOREEN BURGESS POC GLUCOSE Result Value Ref Range POC GLUCOSE 103 (H) 74 - 99 mg/dL HOSPITAL FELLOW NAME JAZMINE BECK Assessment/Plan of Actively Managed [...] Dr. Cowan regarding plasmapheresis on 12/30. Continue WEB CONTENT & SOCIAL MEDIA MANAGER statin 80 mg, fenofibrate 160 mg. Oral [...] Dr. Cowan regarding plasmapheresis on 12/30. Continue WEB CONTENT & SOCIAL MEDIA MANAGER statin 80 mg, fenofibrate 160 mg. Diabetes-uncontrolled. On WEB CONTENT & SOCIAL MEDIA MANAGER Lantus 35 units twice daily, Metformin 500 mg twice daily, Jardiance.Anion gap initially 20, now down to 9. Serum ketones 1.6. Restart insulin drip with D5 for triglycerides (as above) and monitor BG levels. Hypokalemia-resolved, cont to monitor Leukocytosis-noted. Neutrophil predominant. Continue to follow CBC. Now resolved. Depression with anxiety-continue WEB CONTENT & SOCIAL MEDIA MANAGER Celexa, Wellbutrin, trazodone GERD (gastroesophageal reflux disease)-continue WEB CONTENT & SOCIAL MEDIA MANAGER PPI Acquired hypothyroidism-continue WEB CONTENT & SOCIAL MEDIA MANAGER Synthroid 200 mcg Tobacco use-encourage cessation. On Wellbutrin WEB CONTENT & SOCIAL MEDIA MANAGER. Nicotine patch as needed. Quality/Safety/Core Measures/Disposition Planning: DVT Prophylaxis - Enoxaparin Pettit catheter:absent Current Code Status -Full Code Plan discussed with patient, questions answered. Current Planned Disposition - Dispo: home Manisha Cleveland MD [facility] Epic Secure Chat 7am-7pm After hours please call ospitalist This note was transcribed using Energy speaking computerized voice recognition without a human aqua ammonia operator. This report may or may not have [...] not included. [facility] Progress Note Date of Admission: [...] GLUCOSE 136 (H) 74 - 99 mg/dL HOSPITAL FELLOW NAME INGRIS DYSON POC GLUCOSE Result Value Ref Range POC GLUCOSE 180 (H) 74 - 99 mg/dL COMMENT, GLU POC Notified RN/MD HOSPITAL FELLOW NAME LIGIA EMERY POC GLUCOSE Result Value Ref Range POC GLUCOSE 148 (H) 74 - 99 mg/dL HOSPITAL FELLOW NAME INGRIS DYSON POC GLUCOSE Result Value Ref Range POC GLUCOSE 149 (H) 74 - 99 mg/dL COMMENT, GLU POC Notified RN/MD HOSPITAL FELLOW NAME LIGIA EMERY POC GLUCOSE Result Value Ref Range POC GLUCOSE 169 (H) 74 - 99 mg/dL HOSPITAL FELLOW NAME JEFFRY CARO BASIC METABOLIC PANEL Result [...] if not improved on the drip. Continue WEB CONTENT & SOCIAL MEDIA MANAGER statin 80 mg, fenofibrate 160 mg. Oral [...] if not improved on the drip. Continue WEB CONTENT & SOCIAL MEDIA MANAGER statin 80 mg, fenofibrate 160 mg. Diabetes-uncontrolled. On WEB CONTENT & SOCIAL MEDIA MANAGER Lantus 35 units twice daily, Metformin 500 mg twice daily, Jardiance.Anion gap initially 20, now down to 9. Serum ketones 1.6. Restart insulin drip with D5 for triglycerides (as above) and monitor BG levels. Hypokalemia-resolved, cont to monitor Leukocytosis-noted. Neutrophil predominant. Continue to follow CBC. Now resolved. Depression with anxiety-continue WEB CONTENT & SOCIAL MEDIA MANAGER Celexa, Wellbutrin, trazodone GERD (gastroesophageal reflux disease)-continue WEB CONTENT & SOCIAL MEDIA MANAGER PPI Acquired hypothyroidism-continue WEB CONTENT & SOCIAL MEDIA MANAGER Synthroid 200 mcg Tobacco use-encourage cessation. On Wellbutrin WEB CONTENT & SOCIAL MEDIA MANAGER. Nicotine patch as needed. Quality/Safety/Core Measures/Disposition Planning: DVT Prophylaxis - Enoxaparin Pettit catheter:absent Current Code Status -Full Code Plan discussed with patient, questions answered. Current Planned Disposition - Dispo: home [facility]isha Cleveland [facility] Epic Secure Chat 7am-7pm After hours please call vHospitalist This note was transcribed using Energy speaking computerized voice recognition without a human aqua ammonia operator. This report may or may not have [...] throughout the procedure. ?? Nicole Mondragon MD Paper Machine Operator, therapeutic apheresis service [phone] ?? Procedure??notes: Patient tolerated procedure well. * [...] not included. [facility] Progress Note Date of Admission: [...] POC GLUCOSE 79 74 - 99 mg/dL HOSPITAL FELLOW NAME JEFF BURROWS TRIGLYCERIDE Result Value Ref Range TRIGLYCERIDE 1,341 (H) <150 mg/dL POC GLUCOSE Result Value Ref Range POC GLUCOSE 85 74 - 99 mg/dL HOSPITAL FELLOW NAME JEFF BURROWS POC GLUCOSE Result Value Ref Range POC GLUCOSE 75 74 - 99 mg/dL HOSPITAL FELLOW NAME KATIA DIAZ POC GLUCOSE Result Value Ref Range POC GLUCOSE 74 74 - 99 mg/dL HOSPITAL FELLOW NAME KATIA DIAZ POC GLUCOSE Result Value Ref Range POC GLUCOSE 79 74 - 99 mg/dL HOSPITAL FELLOW NAME [facility] POC GLUCOSE Result Value Ref Range POC GLUCOSE 85 74 - 99 mg/dL HOSPITAL FELLOW NAME [facility] POC GLUCOSE Result Value Ref Range POC GLUCOSE 95 74 - 99 mg/dL HOSPITAL FELLOW NAME [facility] POC GLUCOSE Result Value Ref Range POC GLUCOSE 85 74 - 99 mg/dL HOSPITAL FELLOW NAME [facility] POC GLUCOSE Result Value Ref Range POC GLUCOSE 108 (H) 74 - 99 mg/dL HOSPITAL FELLOW NAME [facility] POC GLUCOSE Result Value Ref Range POC GLUCOSE 97 74 - 99 mg/dL HOSPITAL FELLOW NAME [facility] POC GLUCOSE Result Value Ref Range POC GLUCOSE 116 (H) 74 - 99 mg/dL HOSPITAL FELLOW NAME [facility] BASIC METABOLIC PANEL Result Value Ref [...] GLUCOSE 120 (H) 74 - 99 mg/dL HOSPITAL FELLOW NAME [facility] POC GLUCOSE Result Value Ref Range POC GLUCOSE 119 (H) 74 - 99 mg/dL COMMENT, GLU POC Notified RN/MD HOSPITAL FELLOW NAME SATISHHILARYVANGIE IVETT Brittni POC GLUCOSE Result Value Ref Range POC GLUCOSE 117 (H) 74 - 99 mg/dL HOSPITAL FELLOW NAME [facility] POC GLUCOSE Result Value Ref Range POC GLUCOSE 125 (H) 74 - 99 mg/dL HOSPITAL FELLOW NAME [facility] POC GLUCOSE Result Value Ref Range POC GLUCOSE 130 (H) 74 - 99 mg/dL HOSPITAL FELLOW NAME INGRIS DYSON POC GLUCOSE Result Value Ref Range POC GLUCOSE 127 (H) 74 - 99 mg/dL COMMENT, GLU POC Notified RN/MD HOSPITAL FELLOW NAME LIGIA EMERY POC GLUCOSE Result Value Ref Range POC GLUCOSE 136 (H) 74 - 99 mg/dL HOSPITAL FELLOW NAME INGRIS DYSON POC GLUCOSE Result Value Ref Range POC GLUCOSE 180 (H) 74 - 99 mg/dL COMMENT, GLU POC Notified RN/MD HOSPITAL FELLOW NAME LIGIA EMERY POC GLUCOSE Result Value Ref Range POC GLUCOSE 148 (H) 74 - 99 mg/dL HOSPITAL FELLOW NAME INGRIS DYSON Assessment/Plan of Actively Managed Problems Acute on chronic pancreatitis-recurrent secondary to hypertriglyceridemia. Triglycerides 3537 on admission-> 986. Follows with endocrinology outpatient-Dr. Gates. Previously hospitalized for similar in June and July 2020. Initially on insulin drip with D5 NS -> dc'd and diet advanced. Plasmapheresis today. Continue WEB CONTENT & SOCIAL MEDIA MANAGER statin 80 mg, fenofibrate 160 mg. Oral pain control while on diet. Familial hypertriglyceridemia-followed by endocrinology. Currently getting treatment with plasmapheresis twice a month-reports she is due for her next treatment on 12/28/2020- coordinated with blood bank, will be scheduled today. Fenofibrate 160 mg. Cont 4 gr of vascepa per day with meals hen diet advanced. Follow triglyceride level. Diabetes-uncontrolled. On WEB CONTENT & SOCIAL MEDIA MANAGER Lantus 35 units twice daily, Metformin 500 mg twice daily, Jardiance.Anion gap initially 20, now down to 9. Serum ketones 1.6. Initially on insulin drip, will restart WEB CONTENT & SOCIAL MEDIA MANAGER lantus at lower dose of 20 BID and monitor trend with PO intake. Hypokalemia-resolved, cont to monitor Leukocytosis-noted. Neutrophil predominant. Continue to follow CBC. Now resolved. Depression with anxiety-continue WEB CONTENT & SOCIAL MEDIA MANAGER Celexa, Wellbutrin, trazodone GERD (gastroesophageal reflux disease)-continue WEB CONTENT & SOCIAL MEDIA MANAGER PPI Acquired hypothyroidism-continue WEB CONTENT & SOCIAL MEDIA MANAGER Synthroid 200 mcg Tobacco use-encourage cessation. On Wellbutrin WEB CONTENT & SOCIAL MEDIA MANAGER. Nicotine patch as needed. Quality/Safety/Core Measures/Disposition Planning: DVT Prophylaxis - Enoxaparin Pettit catheter:absent Current Code Status -Full Code Plan discussed with patient, questions answered. Current Planned Disposition - Dispo: home Manisha Cleveland MD [facility] Epic Secure Chat 7am-7pm After hours please call ospitalist This note was transcribed using We[employer] naturally speaking computerized voice recognition without a human aqua ammonia operator. This report may or may not have been adjusted for typographical, grammaticaland syntax errors. * Jeffry Caro RN - 12/28/2020 6:17 AM CDT Shift Note: BS checked q1h, insulin gtt going per MAR Neuro: x4, given dilaudid for abd pain CV: NSR, SBP 100s-110s, afebrile Resp: Ra, clear GI: last BM WEB CONTENT & SOCIAL MEDIA MANAGER : BSC Activity: self turn, standby * Counts, Manisha Wagner MD - 12/27/2020 2:54 PM CDT Images from the original note were not included. [facility] Progress Note Date of Admission: [...] PCR Not Detected Not Detected PERFORMING LAB [facility] POC GLUCOSE Result Value Ref Range POC GLUCOSE 102 (H) 74 - 99 mg/dL HOSPITAL FELLOW NAME AMINA FLOOD POC GLUCOSE Result Value Ref Range POC GLUCOSE 86 74 - 99 mg/dL HOSPITAL FELLOW NAME AMINA FLOOD CBC WITH DIFFERENTIAL Result [...] RN/MD COMMENT 2, GLU POC Repeated Glucose HOSPITAL FELLOW NAME KENIA QUIROZ POC GLUCOSE Result Value Ref Range POC GLUCOSE 122 (H) 74 - 99 mg/dL COMMENT, GLU POC Notified RN/MD COMMENT 2, GLU POC Repeated Glucose HOSPITAL FELLOW NAME AMINA FLOOD LACTIC ACID Result Value Ref Range LACTIC ACID 0.7 <=2.0 mmol/L POC GLUCOSE Result Value Ref Range POC GLUCOSE 81 74 - 99 mg/dL HOSPITAL FELLOW NAME AMINA FLOOD POC GLUCOSE Result Value Ref Range POC GLUCOSE 73 (L) 74 - 99 mg/dL HOSPITAL FELLOW NAME KENIA QUIROZ POC GLUCOSE Result Value Ref Range POC GLUCOSE 91 74 - 99 mg/dL HOSPITAL FELLOW NAME KENIA QUIROZ POC GLUCOSE Result Value Ref Range POC GLUCOSE 74 74 - 99 mg/dL COMMENT, GLU POC Notified RN/MD COMMENT 2, GLU POC Repeated Glucose HOSPITAL FELLOW NAME AMINA FLOOD POC GLUCOSE Result Value Ref Range POC GLUCOSE 78 74 - 99 mg/dL HOSPITAL FELLOW NAME JEFF BURROWS TROPONIN 6 HR, 5TH [...] POC GLUCOSE 75 74 - 99 mg/dL HOSPITAL FELLOW NAME KATIA DIAZ POC GLUCOSE Result Value Ref Range POC GLUCOSE 85 74 - 99 mg/dL HOSPITAL FELLOW NAME JEFF BURROWS POC GLUCOSE Result Value Ref Range POC GLUCOSE 73 (L) 74 - 99 mg/dL HOSPITAL FELLOW NAME KATIA DIAZ POC GLUCOSE Result Value Ref Range POC GLUCOSE 79 74 - 99 mg/dL HOSPITAL FELLOW NAME KATIA DIAZ Assessment/Plan of Actively Managed Problems Acute on chronic pancreatitis-recurrent secondary to hypertriglyceridemia. Triglycerides 3537 on admission. Follows with endocrinology outpatient-Dr. Gates. Previously hospitalized for similar in June and July 2020. Currently on insulin drip with D5 NS. Endocrinology consulted, appreciate recommendations. Continue [employer]IA MANAGER statin 80 mg, fenofibrate 160 mg. Continue [...] diet advanced. Repeat triglyceride level. Diabetes-uncontrolled. On [employer] MEDIA MANAGER Lantus 35 units twice daily, Metformin 500 mg twice daily, Jardiance.Anion gap initially 20, now down to 9. Serum ketones 1.6. Currently on insulin drip. Hypokalemia-replace 40 mEq Leukocytosis-noted. Neutrophil predominant. Continue to follow CBC. Depression with anxiety-continue [employer] SOCIAL MEDIA MANAGER Celexa, Wellbutrin, trazodone GERD (gastroesophageal reflux disease)-continue [employer]IAL MEDIA MANAGER PPI Acquired hypothyroidism-continue [employer]IAL MEDIA MANAGER Synthroid 200 mcg Tobacco use-encourage cessation. On Wellbutrin [employer]IA MANAGER. Nicotine patch as needed. Quality/Safety/Core Measures/Disposition Planning: DVT Prophylaxis - Enoxaparin Pettit catheter:absent Current Code Status -Full Code Plan discussed with patient, questions answered. Current Planned Disposition - Dispo: home Manisha Cleveland MD [facility] Epic Secure Chat 7am-7pm After hours please call ospitalist This note was transcribed using Weebly naturally speaking computerized voice recognition without a human aqua ammonia operator. This report may or may not have [...] wound care services. 5. Is a medical affairs manager in place?no If yes, remove device/brace/splint to [...] etc.). Wound care consult was not initiated. [facility] Skin Care Injury Prevention and Treatment Protocol [facility] Approved by: [facility] - Medical Executive Committee Approval [...] Santo MD - 12/26/2020 11:23 PM CDT [facility] Adult Hospitalist Admission H&P Date of Admission: 12/26/2020 Date of Service: 12/26/2020 Patient Name: Casandra Doss Courtesy Copy PCP: Guerrero Middleton PA-C Chief Complaint: abdominal pain HPI: Patient is a 45 y.o. female with a past medical history of recurrent pancreatitis 2/2 hypertriglyceridemia who presents with acute onset abd pain. Pt developed pain 2 days [employer]IA MANAGER associated with nausea/vomiting. Pt attempted to treat [...] of left power flow port 05/11/2019 ??? ID ESOPHAGOGASTRODUODENOSCOPY TRANSORAL DIAGNOSTIC N/A 03/08/2018 ESOPHAGOGASTRODUODENOSCOPY performed by Ceasar Vega MD at [facility] GI LAB Family History: Family History [...] Sig: Change transmitter every 90 days Fish Oil-[place]-3 Fatty Acids 360-1,200 mg Capsule Yes No [...] Sig: TAKE 1 TABLET BY MOUTH EVERY BULK TANK DRIVER fenofibrate (LOFIBRA) 160 mg Tablet No No [...] PCR Not Detected Not Detected PERFORMING LAB [facility] ECG: personally reviewed, sinus tach, no acute [...] - pt uses lantus and oral agents [employer] SOCIAL MEDIA MANAGER, here, pt does have increased AGMA with [...] Clear lungs. DICTATION LOCATION: Location 1 - [facility] EKG: Time 2142, sinus tach 107, left atrial l enlargement, no acute ST elevation/no STEMI. ID interval 0.15, QRS 0.08, QT 0.33 PROCEDURES Procedures MEDICAL DECISION MAKING AND PLAN OF CARE Upon initial evaluation, plan for labs and imaging was discussed with the patient. Patients questions and concerns were addressed. Patient agrees with this initial plan of care. 9:39 PM: Rechecked the patient. She states that she normally gets Dilaudid for this pain. Physician informed her of [facility]'s policy on this medication. 11:00 PM: After a long discussion with the patient and her , they agreed to admission. Updated patient on results. The opportunity for questions was given and questions were answered to the patient's satisfaction. All questions and concerns have been addressed. 11:05 PM: D/w ANNA Singh for [facility] Hospitalist who agrees to admission to step- [...] throughout shift. Complained of frequent pain, PRN [place] given and dilaudid give x2 for breakthrough [...] for discharge planning. Anahi Sweet R.N. / [facility] [phone] Problem: Discharge Planning Goal: Identify discharge needs upon admission and through discharge Description: Outcome: Progressing * Treatment Plan - Elisha Powell RT - 12/26/2020 10:00 PM CDT Images from the original note were not included. ? STL IMS CT MRI Medication and Flush Protocol [facility] Approved by: [facility] - Medical Executive Committee Approval [...] of NSF cases: o Gadodiamide (Omniscan?? - ZYB) o Gadopentetate dimeglumine (Magnevist?? - Vacation Your Way) o Gadoversetamide (OptiMARK?? - Guerbet) Group II: Agents associated with few, if any, unconfounded cases of NSF: o Gadobenate dimeglumine (MultiHance?? - [employer]) o Gadobutrol (Gadavist?? - Vacation Your Way; Gadovist in many countries) o Gadoteric acid (Dotarem?? - Guerbet, Clariscan - ZYB) Gadoteridol (ProHance?? - [employer]) Group III: Agents for which data remains limited regarding NSF risk, but for which few, if any unconfounded cases of NSF have been reported: Gadoxetate disodium (Eovist - Vacation Your Way; Primovist in many countries) documented in this encounter Plan of Treatment Upcoming Encounters Date Type Department Care Team (Late st Contact Info) Description 09/14/2024 3:00 PM CDT Office Visit [phone] [address] [place] [address] Marlys Mayer MD [address] [place] [address] documented as of this encounter Procedures Procedure [...] - 99 mg/dL 01/02/2021 11:45 AM CDT [email or web address] LABORATORY SERVICES - [facility] HOSPITAL FELLOW NAME POC FRNACESCA MENG 01/02/2021 11:45 AM CDT [email or web address] LABORATORY SERVICES - [facility] Blood, whole 01/02/2021 11:4 5 AM CDT 01/02/2021 11:57 AM CDT Manisha Cleveland MD POINT OF CARE TESTI LUCIANO Performing Organization Address [facility]/ZIP Co de Phone Number [facility] LABORATORY [facility] CLIA# [id number] [address] [place] [address] * (ABNORMAL) POC GLUCOSE (01/02/2021 9:38 AM CDT) GLUCOSE POC 127(H) 74 - 99 mg/dL 01/02/2021 9:38 AM CDT [email or web address] LABORATORY SERVICES [facility] COMMENT, GLU POC Notified RN/ 01/02/2021 9:38 AM CDT [email or web address] LABORATORY SERVICES [facility] HOSPITAL FELLOW NAME POC CARLOS VALENCIA 01/02/2021 9:38 AM CDT [email or web address] LABORATORY SERVICES [facility] Blood, whole 01/02/2021 9:38 AM CDT 01/02/2021 10:15 AM CDT Manisha Cleveland MD POINT OF CARE TESTI LUCIANO Performing Organization Address [facility]/ZIP Co de Phone Number [facility] LABORATORY SERVICES [facility] CLIA# [id number] [address] [address] * (ABNORMAL) POC GLUCOSE (01/02/2021 8:43 AM CDT) GLUCOSE POC 123(H) 74 - 99 mg/dL 01/02/2021 8:43 AM CDT [email or web address] LABORATORY SERVICES [facility] COMMENT, GLU POC Notified RN/ 01/02/2021 8:43 AM CDT [facility] LABOR[facility]ORY [facility] HOSPITAL FELLOW NAME POC CARLOS VALENCIA 01/02/2021 8:43 AM CDT [facility] LABOR[facility] Blood, whole 01/02/2021 8:43 AM CDT 01/02/2021 8:51 AM CDT Manisha Cleveland MD POINT OF CARE TESTI NG Performing Organization Address [facility] Co de Phone Number [facility] [employer] [facility]# [id number] [address] [place] [address] * (ABNORMAL) TRIGLYCERIDE (01/02/2021 7:52 AM CDT) TRIGLYCERIDE 476(H) <150 mg/dL 01/02/2021 9:04 AM CDT [facility] [employer] [facility] Blood Venipuncture / Unknown 01/02/2021 7:52 AM CDT 01/02/2021 7:53 AM CDT Narrative [facility] LABORATORY [facility] - 01/02/2021 9:04 AM CDT TRIGLYCERIDES ? mg/dL Normal ?< 150 Borderline High ?150 - 199 High ? 200 - 499 Very High ? >= 500 Based on AHA/NCEP Guidelines. Manisha Cleveland MD CHEMISTRY ORDERABLE S Performing Organization Address [facility] Co de Phone Number [facility] [employer] [facility]# [id number] [address] [place] [address] * POC GLUCOSE (01/02/2021 7:29 AM CDT) GLUCOSE POC 94 74 - 99 mg/dL 01/02/2021 7:29 AM CDT [facility] LABORATORY [facility] HOSPITAL FELLOW NAME POC FRANCESCA MENG 01/02/2021 7:29 AM CDT [facility] LABORATORY [facility] Blood, whole 01/02/2021 7:29 AM CDT 01/02/2021 7:45 AM CDT Manisha Cleveland MD POINT OF CARE TESTI NG [facility] LABORATORY [facility] CLIA# [id number] [address] [place] [address] * (ABNORMAL) POC GLUCOSE (01/02/2021 6:30 AM CDT) GLUCOSE POC 117(H) 74 - 99 mg/dL 01/02/2021 6:30 AM CDT [facility] LABORATORY SERVICES [facility] HOSPITAL FELLOW NAME POC GENOVEVA SMYTH 01/02/2021 6:30 AM CDT [email or web address] LABORATORY SERVICES [facility] Blood, whole 01/02/2021 6:30 AM CDT 01/02/2021 6:36 AM CDT Manisha Cleveland MD POINT OF CARE TESTI NG [facility] LABORATORY [facility] CLIA# [id number] [address] [place] [address] * (ABNORMAL) POC GLUCOSE (01/02/2021 5:39 AM CDT) GLUCOSE POC 115(H) 74 - 99 mg/dL 01/02/2021 5:39 AM CDT [facility] HOSPITAL FELLOW NAME POC GENOVEVA SMYTH 01/02/2021 5:39 AM CDT [facility] Blood, whole 01/02/2021 5:39 AM CDT 01/02/2021 5:50 AM CDT Manisha Cleveland MD POINT OF CARE TESTI NG [facility] LABORATORY [facility] CLIA# [id number] [address] [place] [address] * (ABNORMAL) POC GLUCOSE (01/02/2021 4:41 AM CDT) [facility] GLUCOSE POC 119(H) 74 - 99 mg/dL 01/02/2021 4:41 AM CDT [facility] LABORATORY SERVICES - [facility] COMMENT, GLU POC Notified RN/MD 01/02/2021 4:41 AM CDT [email or web address] LABORATORY SERVICES - [facility] HOSPITAL FELLOW NAME POC JACK GAINES 01/02/2021 4:41 AM CDT [email or web address] LABORATORY SERVICES - [facility] Blood, whole 01/02/2021 4:41 AM CDT 01/02/2021 4:47 AM CDT Manisha Cleveland MD POINT OF CARE TESTI NG [facility] LABORATORY SERVICES [facility]# [id number] [address] [place] [address] * (ABNORMAL) CBC WITH DIFFERENTIAL (01/02/2021 3:35 AM CDT) [facility] WBC 5.7 4.0 - 9.8 K/uL 01/02/2021 3:44 AM CDT [facility] LABORATORY SERVICES - [facility] RBC 4.19 3.90 - 4.90 M/uL 01/02/2021 3:44 AM CDT [facility] - [facility] HEMOGLOBIN 12.3 11.8 - 14.8 g/dL 01/02/2021 3:44 AM CDT [facility] - [facility] HEMATOCRIT 38.0 35.5 - 44.0 % 01/02/2021 3:44 AM CDT [facility] - [facility] MCV 90.7 82.0 - 99.0 fL 01/02/2021 3:44 AM CDT [facility]AT[facility] - [facility] MCH 29.4 27.2 - 32.6 pg 01/02/2021 3:44 AM CDT [email or web address] LABORATORY SERVICES - [facility] MCHC 32.4 31.5 - 35.5 g/dL 01/02/2021 3:44 AM CDT [email or web address] LABORATORY SERVICES - [facility] RDW 14.6(H) 11.5 - 14.5 % 01/02/2021 3:44 AM CDT [email or web address] LABORATORY SERVICES - [facility] RDW-STDEV 49.1(H) 37.1 - 48.7 fL 01/02/2021 3:44 AM CDT [email or web address] LABORATORY SERVICES - [facility] PLATELETS 221 140 - 350 K/uL 01/02/2021 3:44 AM CDT [email or web address] LABORATORY SERVICES - [facility] MPV 8.9(L) 9.3 - 12.4 fL 01/02/2021 3:44 AM CDT [email or web address] [facility]ATORY SERVICES - [facility] NEUTROPHILS 55 % 01/02/2021 3:44 AM CDT [email or web address] [facility]ATORY SERVICES - [facility] LYMPHOCYTES 36 % 01/02/2021 3:44 AM CDT [email or web address] [facility]ATORY SERVICES - [facility] MONOCYTES 6 % 01/02/2021 3:44 AM CDT [email or web address]ATORY SERVICES - [facility] EOSINOPHILS 2 % 01/02/2021 3:44 AM CDT [email or web address]ATORY SERVICES - [facility] BASOPHILS 1 % 01/02/2021 3:44 AM CDT [email or web address] LABORATORY SERVICES - [facility] IMMATURE GRANULOCYTES 1 % 01/02/2021 3:44 AM CDT [email or web address] LABORATORY SERVICES - [facility] Comment:IG (Immature Granulo cyte) count includes Metamyelocytes, Myelocytes, and Promyelocytes NEUTROPHIL ABSOLUTE 3.12 1.90 - 7.00 K/uL 01/02/2021 3:44 AM CDT [email or web address] LABORATORY SERVICES - [facility] LYMPHOCYTE ABSOLUTE 2.04 0.70 - 4.50 K/uL 01/02/2021 3:44 AM CDT [email or web address] LABORATORY SERVICES - [facility] MONOCYTE ABSOLUTE 0.35 0.10 - 1.30 K/uL 01/02/2021 3:44 AM CDT [email or web address] LABORATORY SERVICES - [facility] EOSINOPHIL ABSOLUTE 0.09 0.00 - 0.70 K/uL 01/02/2021 3:44 AM CDT [email or web address] LABORATORY SERVICES - [facility] BASOPHILS ABSOLUTE 0.03 0.00 - 0.20 K/uL 01/02/2021 3:44 AM CDT [email or web address] LABORATORY SERVICES - . [facility] IMMATURE GRANULOCYTES ABSOLUTE 0.05(H) 0.00 - 0.03 K/uL 01/02/2021 3:44 AM CDT [facility] LABORATORY [facility] Blood Venipuncture / Unknown 01/02/2021 3:35 AM CDT 01/02/2021 3:39 AM CDT Manisha Cleveland MD HEMATOLOGY ORDERABL ES Performing Organization Address [facility]/ZIP Co de Phone Number [facility]# [id number] [address] [place] [address] * (ABNORMAL) POC GLUCOSE (01/02/2021 3:31 AM CDT) GLUCOSE POC 121(H) 74 - 99 mg/dL 01/02/2021 3:31 AM CDT [facility] LABORATORY [facility] HOSPITAL FELLOW NAME POC GENOVEVA SMYTH 01/02/2021 3:31 AM CDT [facility] Blood, whole 01/02/2021 3:31 AM CDT 01/02/2021 3:53 AM CDT Manisha Cleveland MD POINT OF CARE TESTI NG Performing Organization Address [facility] Co de Phone Number [facility]# [id number] [address] [place] [address] * (ABNORMAL) POC GLUCOSE (01/02/2021 2:37 AM CDT) GLUCOSE POC 114(H) 74 - 99 mg/dL 01/02/2021 2:37 AM CDT [facility] LABORATORY [facility] HOSPITAL FELLOW NAME POC GENOVEVA SMYTH 01/02/2021 2:37 AM CDT [facility] LABORATORY [facility] Blood, whole 01/02/2021 2:37 AM CDT 01/02/2021 2:46 AM CDT Manisha Cleveland MD POINT OF CARE TESTI NG [facility] LABORATORY SERVICES [facility]# [id number] [address] [place] [address] * POC GLUCOSE (01/02/2021 2:03 AM CDT) GLUCOSE POC 96 74 - 99 mg/dL 01/02/2021 2:03 AM CDT [facility] LABORATORY SERVICES [facility] HOSPITAL FELLOW NAME POC GENOVEVA SMYTH 01/02/2021 2:03 AM CDT [facility] LABORATORY SERVICES [facility] Blood, whole 01/02/2021 2:03 AM CDT 01/02/2021 2:15 AM CDT Manisha Cleveland MD POINT OF CARE TESTI NG Performing Organization Address [facility]/ZIP Co de Phone Number [facility] LABORATORY SERVICES [facility] CLIA# [id number] [address] [place] [address] * POC GLUCOSE (01/02/2021 1:28 AM CDT) GLUCOSE POC 92 74 - 99 mg/dL 01/02/2021 1:28 AM CDT [facility] LABORATORY SERVICES [facility] COMMENT, GLU POC Notified RN/MD 01/02/2021 1:28 AM CDT [facility] LABORATORY SERVICES [facility] HOSPITAL FELLOW NAME POC JACK GAINES 01/02/2021 1:28 AM CDT [facility] LABORATORY SERVICES [facility] Blood, whole 01/02/2021 1:28 AM CDT 01/02/2021 1:35 AM CDT Manisha Cleveland MD POINT OF CARE TESTI NG [facility] LABORATORY [facility] CLIA# [id number] [address] [place] [address] * (ABNORMAL) POC GLUCOSE (01/02/2021 12:31 AM CDT) GLUCOSE POC 120(H) 74 - 99 mg/dL 01/02/2021 12:31 AM CDT [facility] LABORATORY [facility] HOSPITAL FELLOW NAME POC GENOVEVA SMYTH 01/02/2021 12:31 AM CDT [facility] LABORATORY SERVICES [facility] Blood, whole 01/02/2021 12:3 1 AM CDT 01/02/2021 12:42 AM CDT Manisha Cleveland MD POINT OF CARE TESTI LUCIANO [facility] LABORATORY [facility] CLIA# [id number] [address] [place] [address] * (ABNORMAL) POC GLUCOSE (01/01/2021 11:18 PM CDT) GLUCOSE POC 147(H) 74 - 99 mg/dL 01/01/2021 11:18 PM CDT [facility] LABORATORY [facility] HOSPITAL FELLOW NAME GENOVEVA RAMOS 01/01/2021 11:18 PM CDT [facility] LABORATORY SERVICES [facility] Blood, whole 01/01/2021 11:1 8 PM CDT 01/01/2021 11:27 PM CDT Manisha Cleveland MD POINT OF CARE TESTChris WOLF [facility] LABORATORY [facility] CLIA# [id number] [address] [place] [address] * (ABNORMAL) POC GLUCOSE (01/01/2021 10:05 PM CDT) GLUCOSE POC 155(H) 74 - 99 mg/dL 01/01/2021 10:05 PM CDT [facility] LABORATORY [facility] HOSPITAL FELLOW NAME GENOVEVA RAMOS 01/01/2021 10:05 PM CDT [facility] LABORATORY SERVICES [facility] Blood, whole 01/01/2021 10:0 5 PM CDT 01/01/2021 10:14 PM CDT Manisha Cleveland MD POINT OF CARE TESTI NG [facility] LABORATORY [facility] CLIA# [id number] [address] [place] [address] * (ABNORMAL) POC GLUCOSE (01/01/2021 8:30 PM CDT) GLUCOSE POC 196(H) 74 - 99 mg/dL 01/01/2021 8:30 PM CDT [facility] LABORATORY [facility] HOSPITAL FELLOW NAME POC GENOVEVA SMYTH 01/01/2021 8:30 PM CDT [facility] LABORATORY SERVICES [facility] Blood, whole 01/01/2021 8:30 PM CDT 01/01/2021 8:40 PM CDT Manisha Cleveland MD POINT OF CARE TESTChris NG [facility] [employer] [facility] CLIA# [id number] [address] [place] [address] * (ABNORMAL) POC GLUCOSE (01/01/2021 7:29 PM CDT) GLUCOSE POC 126(H) 74 - 99 mg/dL 01/01/2021 7:29 PM CDT [facility] LABORATORY [facility] HOSPITAL FELLOW NAME POC GENOVEVA SMYTH 01/01/2021 7:29 PM CDT [facility] LABORATORY SERVICES [facility] Blood, whole 01/01/2021 7:29 PM CDT 01/01/2021 7:41 PM CDT Manisha Cleveland MD POINT OF CARE TESTChris NG [facility] LABORATORY [facility] CLIA# [id number] [address] [place] [address] * (ABNORMAL) POC GLUCOSE (01/01/2021 6:33 PM CDT) GLUCOSE POC 149(H) 74 - 99 mg/dL 01/01/2021 6:33 PM CDT [facility] LABORATORY [facility] HOSPITAL FELLOW NAME ALLIE OHARA 01/01/2021 6:33 PM CDT [facility] LABORATORY SERVICES [facility] Blood, whole 01/01/2021 6:33 PM CDT 01/01/2021 6:45 PM CDT Manisha Cleveland MD POINT OF CARE TESTI NG [facility] LABORAT[facility]# [id number] [address] [place] [address] * (ABNORMAL) POC GLUCOSE (01/01/2021 6:02 PM CDT) GLUCOSE POC 129(H) 74 - 99 mg/dL 01/01/2021 6:02 PM CDT [facility] LABORATORY [facility] HOSPITAL FELLOW NAME ALLIE OHARA 01/01/2021 6:02 PM CDT [facility] LABORATORY [facility] Blood, whole 01/01/2021 6:02 PM CDT 01/01/2021 6:13 PM CDT Manisha Cleveland MD POINT OF CARE TESTI NG [facility] LABORAT[facility]# [id number] [address] [place] [address] * (ABNORMAL) POC GLUCOSE (01/01/2021 5:31 PM CDT) GLUCOSE POC 106(H) 74 - 99 mg/dL 01/01/2021 5:31 PM CDT [facility] LABORATORY [facility] HOSPITAL FELLOW NAME ALLIE OHARA 01/01/2021 5:31 PM CDT [facility] LABORATORY SERVICES [facility] Blood, whole 01/01/2021 5:31 PM CDT 01/01/2021 5:46 PM CDT Manisha Cleveland MD POINT OF CARE TESTChris WOLF [facility] LABORATORY [facility]# [id number] [address] [place] [address] * (ABNORMAL) POC GLUCOSE (01/01/2021 4:31 PM CDT) GLUCOSE POC 140(H) 74 - 99 mg/dL 01/01/2021 4:31 PM CDT [facility] LABORATORY [facility] HOSPITAL FELLOW NAME POC ALLIE MADRIGAL 01/01/2021 4:31 PM CDT [facility] LABORATORY [facility] Blood, whole 01/01/2021 4:31 PM CDT 01/01/2021 4:40 PM CDT Manisha Cleveland MD POINT OF CARE TESTChris WOLF Performing Organization Address City/[facility]/ZIP Co de Phone Number [facility] [employer] [facility]# [id number] [address] [place] [address] * (ABNORMAL) TRIGLYCERIDE (01/01/2021 3:37 PM CDT) TRIGLYCERIDE 515(H) <150 mg/dL 01/01/2021 4:16 PM CDT [facility] LABORATORY [facility] Blood Venipuncture / Unknown 01/01/2021 3:37 PM CDT 01/01/2021 3:44 PM CDT Narrative [facility] LABORATORY [facility] - 01/01/2021 4:16 PM CDT TRIGLYCERIDES ? mg/dL Normal ?< 150 Borderline High ?150 - 199 High ? 200 - 499 Very High ? >= 500 Based on AHA/NCEP Guidelines. Manisha Cleveland MD CHEMISTRY ORDERABLE S [facility] [id number] [address] [place] [address] * (ABNORMAL) POC GLUCOSE (01/01/2021 3:31 PM CDT) GLUCOSE POC 180(H) 74 - 99 mg/dL 01/01/2021 3:31 PM CDT [facility] HOSPITAL FELLOW NAME ALLIE OHARA 01/01/2021 3:31 PM CDT [facility] Blood, whole 01/01/2021 3:31 PM CDT 01/01/2021 3:45 PM CDT Manisha Cleveland MD POINT OF CARE TESTChris WOLF Performing Organization Address [facility]/ZIP Co de Phone Number [facility]# [id number] [address] [place] [address] * (ABNORMAL) POC GLUCOSE (01/01/2021 2:31 PM CDT) GLUCOSE POC 179(H) 74 - 99 mg/dL 01/01/2021 2:31 PM CDT [facility] HOSPITAL FELLOW NAME ALLIE OHARA 01/01/2021 2:31 PM CDT [email or web address] LABORATORY SERVICES [facility] Blood, whole 01/01/2021 2:31 PM CDT 01/01/2021 2:39 PM CDT Manisha Cleveland MD POINT OF CARE TESTChris NG Performing Organization Address City/[facility]/ZIP Co de Phone Number [facility] LABORATORY [facility] CLIA# [id number] [address] [place] [address] * (ABNORMAL) POC GLUCOSE (01/01/2021 1:30 PM CDT) GLUCOSE POC 156(H) 74 - 99 mg/dL 01/01/2021 1:30 PM CDT [facility] LABORATORY [facility] HOSPITAL FELLOW NAME POC KATIE HERRERA 01/01/2021 1:30 PM CDT [facility] LABORATORY SERVICES [facility] Blood, whole 01/01/2021 1:30 PM CDT 01/01/2021 1:42 PM CDT Manisha Cleveland MD POINT OF CARE TESTI NG Performing Organization Address City/[facility]/ZIP Co de Phone Number [facility] LABORATORY [facility] CLIA# [id number] [address] [place] [address] * (ABNORMAL) POC GLUCOSE (01/01/2021 12:24 PM CDT) GLUCOSE POC 170(H) 74 - 99 mg/dL 01/01/2021 12:24 PM CDT [facility] LABORATORY [facility] HOSPITAL FELLOW NAME POC ALLIE MADRIGAL 01/01/2021 12:24 PM CDT [facility] LABORATORY SERVICES [facility] Blood, whole 01/01/2021 12:2 4 PM CDT 01/01/2021 12:38 PM CDT Manisha Cleveland MD POINT OF CARE TESTI NG [facility] LABORATORY [facility] CLIA# [id number] [address] [place] [address] * (ABNORMAL) POC GLUCOSE (01/01/2021 11:31 AM CDT) GLUCOSE POC 144(H) 74 - 99 mg/dL 01/01/2021 11:31 AM CDT [facility] LABORATORY SERVICES [facility] HOSPITAL FELLOW NAME POC ANA MADRIGALN 01/01/2021 11:31 AM CDT [facility] LABORATORY SERVICES [facility] Blood, whole 01/01/2021 11:3 1 AM CDT 01/01/2021 11:42 AM CDT Manisha Cleveland MD POINT OF CARE TESTI NG [facility] LABORATORY [facility] CLIA# [id number] [address] [place] [address] * POC GLUCOSE (01/01/2021 10:30 AM CDT) GLUCOSE POC 90 74 - 99 mg/dL 01/01/2021 10:30 AM CDT [facility] LABORATORY [facility] HOSPITAL FELLOW NAME POC ANA MADRIGALN 01/01/2021 10:30 AM CDT [facility] Blood, whole 01/01/2021 10:3 0 AM CDT 01/01/2021 10:39 AM CDT Manisha Cleveland MD POINT OF CARE TESTI NG Performing Organization Address City/[facility]/ZIP Co de Phone Number [facility] [employer] [facility] CLIA# [id number] [address] [place] [address] * (ABNORMAL) POC GLUCOSE (01/01/2021 9:31 AM CDT) GLUCOSE POC 111(H) 74 - 99 mg/dL 01/01/2021 9:31 AM CDT [facility] LABORATORY [facility] HOSPITAL FELLOW NAME POC ROMA MADRIGALISYN 01/01/2021 9:31 AM CDT [facility] SERVICES [facility] Blood, whole 01/01/2021 9:31 AM CDT 01/01/2021 9:42 AM CDT Manisha Cleveland MD POINT OF CARE TESTI NG [facility] LABORATORY [facility] CLIA# [id number] [address] [place] [address] * (ABNORMAL) POC GLUCOSE (01/01/2021 8:32 AM CDT) GLUCOSE POC 113(H) 74 - 99 mg/dL 01/01/2021 8:32 AM CDT [facility] LABORATORY [facility] HOSPITAL FELLOW NAME POC ALLIE MADRIGAL 01/01/2021 8:32 AM CDT [facility] LABORATORY SERVICES [facility] Blood, whole 01/01/2021 8:32 AM CDT 01/01/2021 8:48 AM CDT Manisha Cleveland MD POINT OF CARE TESTI LUCIANO Performing Organization Address [facility]/ZIP Co de Phone Number [facility] LABORATORY [facility] CLIA# [id number] [address] [place] [address] * (ABNORMAL) POC GLUCOSE (01/01/2021 7:55 AM CDT) GLUCOSE POC 134(H) 74 - 99 mg/dL 01/01/2021 7:55 AM CDT [facility] LABORATORY [facility] HOSPITAL FELLOW NAME POC SHAINA MCKEON 01/01/2021 7:55 AM CDT [facility] LABORATORY [facility] Blood, whole 01/01/2021 7:55 AM CDT 01/01/2021 8:08 AM CDT Manisha Cleevland MD POINT OF CARE TESTI LUCIANO [facility] CLIA# [id number] [address] [place] [address] * (ABNORMAL) POC GLUCOSE (01/01/2021 7:29 AM CDT) GLUCOSE POC 142(H) 74 - 99 mg/dL 01/01/2021 7:29 AM CDT [facility] LABORATORY SERVICES [facility] HOSPITAL FELLOW NAME POC KATIE HERRERA 01/01/2021 7:29 AM CDT [email or web address] LABORATORY SERVICES [facility] Blood, whole 01/01/2021 7:29 AM CDT 01/01/2021 7:37 AM CDT Manisha Cleveland MD POINT OF CARE TESTChris WOLF Performing Organization Address City/[facility]/ZIP Co de Phone Number [facility]# [id number] [address] [place] [address] * (ABNORMAL) POC GLUCOSE (01/01/2021 6:24 AM CDT) GLUCOSE POC 164(H) 74 - 99 mg/dL 01/01/2021 6:24 AM CDT [email or web address] LABORATORY SERVICES [facility] HOSPITAL FELLOW NAME POC MARGARITA HOFFMAN 01/01/2021 6:24 AM CDT [email or web address] LABORATORY SERVICES [facility] Blood, whole 01/01/2021 6:24 AM CDT 01/01/2021 6:32 AM CDT Manisha Cleveland MD POINT OF CARE TESTChris WOLF [facility] LABORATORY [facility]# [id number] [address] [place] [address] * (ABNORMAL) CBC WITH DIFFERENTIAL (01/01/2021 5:31 AM CDT) WBC 6.3 4.0 - 9.8 K/uL 01/01/2021 6:21 AM CDT [email or web address] LABORATORY SERVICES - [facility] RBC 4.31 3.90 - 4.90 M/uL 01/01/2021 6:21 AM CDT [email or web address] LABORATORY SERVICES - [facility] HEMOGLOBIN 12.7 11.8 - 14.8 g/dL 01/01/2021 6:21 AM CDT [email or web address] LABORATORY SERVICES - [facility] HEMATOCRIT 39.5 35.5 - 44.0 % 01/01/2021 6:21 AM CDT [email or web address] LABORATORY SERVICES - [facility] MCV 91.6 82.0 - 99.0 fL 01/01/2021 6:21 AM CDT [email or web address] LABORATORY SERVICES - [facility] MCH 29.5 27.2 - 32.6 pg 01/01/2021 6:21 AM CDT [email or web address] LABORATORY SERVICES - [facility] MCHC 32.2 31.5 - 35.5 g/dL 01/01/2021 6:21 AM CDT [email or web address] LABORATORY SERVICES - [facility] RDW 14.8(H) 11.5 - 14.5 % 01/01/2021 6:21 AM CDT [employer] LABORATORY SERVICES - [facility] RDW-STDEV 50.4(H) 37.1 - 48.7 fL 01/01/2021 6:21 AM CDT [email or web address] LABORATORY SERVICES - [facility] PLATELETS 239 140 - 350 K/uL 01/01/2021 6:21 AM CDT [email or web address] LABORATORY SERVICES - [facility] MPV 9.4 9.3 - 12.4 fL 01/01/2021 6:21 AM CDT [email or web address] LABORATORY SERVICES - [facility] NEUTROPHILS 57 % 01/01/2021 6:21 AM CDT [email or web address] LABORATORY SERVICES - [facility] LYMPHOCYTES 32 % 01/01/2021 6:21 AM CDT [email or web address] LABORATORY SERVICES - [facility] MONOCYTES 8 % 01/01/2021 6:21 AM CDT [email or web address] LABORATORY SERVICES - [facility] EOSINOPHILS 2 % 01/01/2021 6:21 AM CDT [email or web address] LABORATORY SERVICES - . [facility] BASOPHILS 1 % 01/01/2021 6:21 AM CDT [email or web address] LABORATORY SERVICES - . [facility] IMMATURE GRANULOCYTES 1 % 01/01/2021 6:21 AM CDT [email or web address] LABORATORY SERVICES - . [facility] Comment:IG (Immature Granulo cyte) count includes Metamyelocytes, Myelocytes, and Promyelocytes NEUTROPHIL ABSOLUTE 3.60 1.90 - 7.00 K/uL 01/01/2021 6:21 AM CDT [email or web address] LABORATORY SERVICES - . [facility] LYMPHOCYTE ABSOLUTE 2.01 0.70 - 4.50 K/uL 01/01/2021 6:21 AM CDT [email or web address] LABORATORY SERVICES - . [facility] MONOCYTE ABSOLUTE 0.47 0.10 - 1.30 K/uL 01/01/2021 6:21 AM CDT [email or web address] LABORATORY SERVICES - [facility] EOSINOPHIL ABSOLUTE 0.11 0.00 - 0.70 K/uL 01/01/2021 6:21 AM CDT [facility] LABORATORY SERVICES - [facility] BASOPHILS ABSOLUTE 0.04 0.00 - 0.20 K/uL 01/01/2021 6:21 AM CDT [facility] LABORATORY SERVICES - [facility] IMMATURE GRANULOCYTES ABSOLUTE 0.04(H) 0.00 - 0.03 K/uL 01/01/2021 6:21 AM CDT [facility] LABORATORY SERVICES - [facility] Blood Venipuncture / Unknown 01/01/2021 5:31 AM CDT 01/01/2021 5:59 AM CDT Manisha Cleveland MD HEMATOLOGY ORDERABL ES Performing Organization Address [facility] Co de Phone Number [facility] LABORATORY [facility] CLIA# [id number] [address] [place] [address] * (ABNORMAL) TRIGLYCERIDE (01/01/2021 5:31 AM CDT) TRIGLYCERIDE 556(H) <150 mg/dL 01/01/2021 6:59 AM CDT [facility] LABORATORY SERVICES - [facility] Blood Venipuncture / Unknown 01/01/2021 5:31 AM CDT 01/01/2021 5:59 AM CDT Narrative [facility] LABORATORY SERVICES - [facility] - 01/01/2021 6:59 AM CDT TRIGLYCERIDES ? mg/dL Normal ?< 150 Borderline High ?150 - 199 High ? 200 - 499 Very High ? >= 500 Based on AHA/NCEP Guidelines. Manisha Cleveland MD CHEMISTRY ORDERABLE S Performing Organization Address [facility] Co de Phone Number [facility] [employer] [facility] CLIA# [id number] [address] [place] [address] * (ABNORMAL) POC GLUCOSE (01/01/2021 5:21 AM CDT) GLUCOSE POC 168(H) 74 - 99 mg/dL 01/01/2021 5:21 AM CDT [facility] LABORATORY [facility] HOSPITAL FELLOW NAME MARGARITA BAUM 01/01/2021 5:21 AM CDT [facility] LABORATORY SERVICES [facility] Blood, whole 01/01/2021 5:21 AM CDT 01/01/2021 5:29 AM CDT Manisha Cleveland MD POINT OF CARE TESTI NG Performing Organization Address City/[facility]/ZIP Co de Phone Number [facility] [employer] [facility] CLIA# [id number] [address] [place] [address] * (ABNORMAL) POC GLUCOSE (01/01/2021 4:15 AM CDT) GLUCOSE POC 139(H) 74 - 99 mg/dL 01/01/2021 4:15 AM CDT [facility] LABORATORY [facility] HOSPITAL FELLOW NAME MARGARITA BAUM 01/01/2021 4:15 AM CDT [facility] LABORATORY SERVICES [facility] Blood, whole 01/01/2021 4:15 AM CDT 01/01/2021 4:26 AM CDT Manisha Cleveland MD POINT OF CARE TESTI NG Performing Organization Address City/[facility]/ZIP Co de Phone Number [facility] CLIA# [id number] [address] [place] [address] * (ABNORMAL) POC GLUCOSE (01/01/2021 3:19 AM CDT) GLUCOSE POC 131(H) 74 - 99 mg/dL 01/01/2021 3:19 AM CDT [facility] LABORATORY SERVICES [facility] HOSPITAL FELLOW NAME MARGARITA BAUM 01/01/2021 3:19 AM CDT [facility] LABORATORY SERVICES [facility] Blood, whole 01/01/2021 3:19 AM CDT 01/01/2021 3:59 AM CDT Manisha Cleveland MD POINT OF CARE TESTI NG [facility] LABORATORY [facility] CLIA# [id number] [address] [place] [address] * (ABNORMAL) POC GLUCOSE (01/01/2021 2:12 AM CDT) GLUCOSE POC 132(H) 74 - 99 mg/dL 01/01/2021 2:12 AM CDT [facility] LABORATORY SERVICES [facility] HOSPITAL FELLOW NAME POC MARGARITA HOFFMAN 01/01/2021 2:12 AM CDT [facility] LABORATORY SERVICES [facility] Blood, whole 01/01/2021 2:12 AM CDT 01/01/2021 2:19 AM CDT Manisha Cleveland MD POINT OF CARE TESTI NG [facility]# [id number] [address] [place] [address] * (ABNORMAL) POC GLUCOSE (01/01/2021 12:31 AM CDT) GLUCOSE POC 138(H) 74 - 99 mg/dL 01/01/2021 12:31 AM CDT [facility] LABORATORY SERVICES [facility] HOSPITAL FELLOW NAME POC PHYLLIS MADERA 01/01/2021 12:31 AM CDT [facility] LABORATORY SERVICES [facility] Blood, whole 01/01/2021 12:3 1 AM CDT 01/01/2021 12:46 AM CDT Manisha Cleveland MD POINT OF CARE TESTI NG [facility]# [id number] [address] [place] [address] * (ABNORMAL) POC GLUCOSE (12/31/2020 11:43 PM CDT) GLUCOSE POC 121(H) 74 - 99 mg/dL 12/31/2020 11:43 PM CDT [facility] LABORATORY [facility] HOSPITAL FELLOW NAME POC MARGARITA HOFFMAN 12/31/2020 11:43 PM CDT [facility] LABORATORY SERVICES [facility] Blood, whole 12/31/2020 11:4 3 PM CDT 12/31/2020 11:50 PM CDT Manisha Cleveland MD POINT OF CARE TESTI NG [facility] LABORATORY [facility] CLIA# [id number] [address] [place] [address] * (ABNORMAL) POC GLUCOSE (12/31/2020 10:29 PM CDT) GLUCOSE POC 176(H) 74 - 99 mg/dL 12/31/2020 10:29 PM CDT [facility] LABORATORY [facility] HOSPITAL FELLOW NAME POC YAMIL LUKE 12/31/2020 10:29 PM CDT [facility] LABORATORY [facility] Blood, whole 12/31/2020 10:2 9 PM CDT 12/31/2020 10:45 PM CDT Manisha Cleveland MD POINT OF CARE TESTI NG [facility] LABORATORY [facility] CLIA# [id number] [address] [place] [address] * (ABNORMAL) POC GLUCOSE (12/31/2020 9:33 PM CDT) GLUCOSE POC 144(H) 74 - 99 mg/dL 12/31/2020 9:33 PM CDT [facility] LABORATORY [facility] HOSPITAL FELLOW NAME MARGARITA BAUM 12/31/2020 9:33 PM CDT [facility] LABORATORY SERVICES [facility] Blood, whole 12/31/2020 9:33 PM CDT 12/31/2020 9:41 PM CDT Manisha Cleveland MD POINT OF CARE TESTI NG Performing Organization Address City/[facility]/ZIP Co de Phone Number [facility] LABORATORY [facility]# [id number] [address] [place] [address] * (ABNORMAL) POC GLUCOSE (12/31/2020 8:41 PM CDT) GLUCOSE POC 117(H) 74 - 99 mg/dL 12/31/2020 8:41 PM CDT [facility] LABORATORY [facility] HOSPITAL FELLOW NAME MARGARITA BAUM 12/31/2020 8:41 PM CDT [facility] LABORATORY SERVICES [facility] Blood, whole 12/31/2020 8:41 PM CDT 12/31/2020 8:51 PM CDT Manisha Cleveland MD POINT OF CARE TESTI NG Performing Organization Address [facility] Co de Phone Number [facility]# [id number] [address] [place] [address] * (ABNORMAL) POC GLUCOSE (12/31/2020 7:29 PM CDT) GLUCOSE POC 113(H) 74 - 99 mg/dL 12/31/2020 7:29 PM CDT [facility] LABORATORY [facility] HOSPITAL FELLOW NAME MARGARITA BAUM 12/31/2020 7:29 PM CDT [facility] LABORATORY [facility] Blood, whole 12/31/2020 7:29 PM CDT 12/31/2020 7:40 PM CDT Manisha Cleveland MD POINT OF CARE TESTI NG [facility] [employer] [facility]# [id number] [address] [place] [address] * (ABNORMAL) POC GLUCOSE (12/31/2020 6:04 PM CDT) GLUCOSE POC 138(H) 74 - 99 mg/dL 12/31/2020 6:04 PM CDT [facility] LABORATORY SERVICES [facility] COMMENT, GLU POC Notified RN/ 12/31/2020 6:04 PM CDT [facility] LABORATORY SERVICES [facility] HOSPITAL FELLOW NAME POC COREY GARVEY 12/31/2020 6:04 PM CDT [facility] LABORATORY SERVICES [facility] Blood, whole 12/31/2020 6:04 PM CDT 12/31/2020 6:13 PM CDT Manisha Cleveland MD POINT OF CARE TESTI NG Performing Organization Address City/[facility]/ZIP Co de Phone Number [facility] LABORATORY [facility]# [id number] [address] [place] [address] * (ABNORMAL) POC GLUCOSE (12/31/2020 5:03 PM CDT) GLUCOSE POC 165(H) 74 - 99 mg/dL 12/31/2020 5:03 PM CDT [facility] LABORATORY SERVICES [facility] COMMENT, GLU POC Notified BREANN 12/31/2020 5:03 PM CDT [facility] LABORATORY SERVICES [facility] HOSPITAL FELLOW NAME POC COREY GARVEY 12/31/2020 5:03 PM CDT [facility] LABORATORY SERVICES [facility] Blood, whole 12/31/2020 5:03 PM CDT 12/31/2020 5:12 PM CDT Manisha Cleveland MD POINT OF CARE TESTI NG Performing Organization Address City/[facility]/ZIP Co de Phone Number [facility]# [id number] [address] [place] [address] * (ABNORMAL) POC GLUCOSE (12/31/2020 4:28 PM CDT) GLUCOSE POC 130(H) 74 - 99 mg/dL 12/31/2020 4:28 PM CDT [facility] LABORATORY SERVICES - [facility] COMMENT, GLU POC Notified RN/ 12/31/2020 4:28 PM CDT [facility] LABORATORY SERVICES - [facility] HOSPITAL FELLOW NAME POC PUJA COURTNEY 12/31/2020 4:28 PM CDT [facility] LABORATORY SERVICES - [facility] Blood, whole 12/31/2020 4:28 PM CDT 12/31/2020 4:43 PM CDT Manisha Cleveland MD POINT OF CARE TESTChris WOLF Performing Organization Address City/[facility]/ZIP Co de Phone Number [facility] LABORATORY SERVICES [facility] CLIA# [id number] [address] [place] [address] * (ABNORMAL) POC GLUCOSE (12/31/2020 3:22 PM CDT) GLUCOSE POC 127(H) 74 - 99 mg/dL 12/31/2020 3:22 PM CDT [facility] LABORATORY SERVICES - [facility] COMMENT, GLU POC Notified CLAU/ 12/31/2020 3:22 PM CDT [facility] LABORATORY SERVICES - [facility] HOSPITAL FELLOW NAME POC COREY GARVEY 12/31/2020 3:22 PM CDT [facility] LABORATORY SERVICES - [facility] Blood, whole 12/31/2020 3:22 PM CDT 12/31/2020 3:32 PM CDT Manisha Cleveland MD POINT OF CARE TESTI NG [facility] LABORATORY [facility] CLIA# [id number] [address] [place] [address] * (ABNORMAL) TRIGLYCERIDE (12/31/2020 2:28 PM CDT) TRIGLYCERIDE 561(H) <150 mg/dL 12/31/2020 3:23 PM CDT [facility] LABORATORY [facility] Blood Venipuncture / Unknown 12/31/2020 2:28 PM CDT 12/31/2020 2:50 PM CDT Narrative [facility] LABORATORY SERVICES - [facility] - 12/31/2020 3:23 PM CDT TRIGLYCERIDES ? mg/dL Normal ?< 150 Borderline High ?150 - 199 High ? 200 - 499 Very High ? >= 500 Based on AHA/NCEP Guidelines. Manisha Cleveland MD CHEMISTRY ORDERABLE S [facility]# [id number] [address] [place] [address] * (ABNORMAL) POC GLUCOSE (12/31/2020 2:16 PM CDT) [facility] GLUCOSE POC 167(H) 74 - 99 mg/dL 12/31/2020 2:16 PM CDT [facility] LABORATORY [facility] COMMENT, GLU POC Notified RN/ 12/31/2020 2:16 PM CDT [facility] LABORATORY [facility] HOSPITAL FELLOW NAME POC COREY GARVEY 12/31/2020 2:16 PM CDT [facility] LABORATORY [facility] Blood, whole 12/31/2020 2:16 PM CDT 12/31/2020 2:25 PM CDT Manisha Cleveland MD POINT [facility] CARE TESTI NG [id number] [address] [place] [address] * (ABNORMAL) POC GLUCOSE (12/31/2020 1:11 PM CDT) GLUCOSE POC 148(H) 74 - 99 mg/dL 12/31/2020 1:11 PM CDT [facility] LABORATORY SERVICES - [facility] COMMENT, GLU POC Notified RN/ 12/31/2020 1:11 PM CDT [facility] LABORATORY SERVICES - [facility] HOSPITAL FELLOW NAME POC COREY GARVEY 12/31/2020 1:11 PM CDT [facility] LABORATORY SERVICES [facility] Blood, whole 12/31/2020 1:11 PM CDT 12/31/2020 1:18 PM CDT Manisha Cleveland MD POINT OF CARE TESTI LUCIANO Performing Organization Address [facility] Co de Phone Number [facility] LABORATORY [facility] CLIA# [id number] [address] [facility] [place] [address] * (ABNORMAL) POC GLUCOSE (12/31/2020 12:05 PM CDT) GLUCOSE POC 131(H) 74 - 99 mg/dL 12/31/2020 12:05 PM CDT [facility] LABORATORY SERVICES [facility] COMMENT, GLU POC Notified RN/ 12/31/2020 12:05 PM CDT [facility] LABORATORY SERVICES [facility] HOSPITAL FELLOW NAME POC COREY GARVEY 12/31/2020 12:05 PM CDT [facility] LABORATORY SERVICES [facility] Blood, whole 12/31/2020 12:0 5 PM CDT 12/31/2020 12:20 PM CDT Manisha Cleveland MD POINT OF CARE TESTChris WOLF Performing Organization Address City/[facility]/ZIP Co de Phone Number [facility] LABORATORY [facility] CLIA# [id number] [address] [place] [address] * (ABNORMAL) POC GLUCOSE (12/31/2020 11:10 AM CDT) GLUCOSE POC 136(H) 74 - 99 mg/dL 12/31/2020 11:10 AM CDT [facility] LABORATORY SERVICES [facility] HOSPITAL FELLOW NAME POC BRAD Nicholspn-VICKI DE LEÓN 12/31/2020 11:10 AM CDT [facility] LABORATORY SERVICES [facility] Blood, whole 12/31/2020 11:1 0 AM CDT 12/31/2020 11:23 AM CDT Manisha Cleveland MD POINT OF CARE TESTChris WOLF Performing Organization Address [facility]/ZIP Co de Phone Number [facility] CLIA# [id number] [address] [place] [address] * POC GLUCOSE (12/31/2020 10:14 AM CDT) GLUCOSE POC 98 74 - 99 mg/dL 12/31/2020 10:14 AM CDT [email or web address] COMMENT, GLU POC Notified RN/ 12/31/2020 10:14 AM CDT [email or web address] HOSPITAL FELLOW NAME POC COREY GARVEY 12/31/2020 10:14 AM CDT [email or web address] Blood, whole 12/31/2020 10:1 4 AM CDT 12/31/2020 10:26 AM CDT Manisha Cleveland MD POINT OF CARE TESTChris WOLF Performing Organization Address City/[facility]/ZIP Co de Phone Number [facility] CLIA# [id number] [address] [place] [address] * (ABNORMAL) POC GLUCOSE (12/31/2020 9:17 AM CDT) GLUCOSE POC 101(H) 74 - 99 mg/dL 12/31/2020 9:17 AM CDT [email or web address] COMMENT, GLU POC Notified RN/ 12/31/2020 9:17 AM CDT [email or web address] HOSPITAL FELLOW NAME POC COREY GARVEY 12/31/2020 9:17 AM CDT [facility] Blood, whole 12/31/2020 9:17 AM CDT 12/31/2020 9:25 AM CDT Manisha Cleveland MD POINT OF CARE TESTI NG Performing Organization Address City/[facility]/ZIP Co de Phone Number [facility]# [id number] [address] [facility] [place] [address] * POC GLUCOSE (12/31/2020 8:02 AM CDT) GLUCOSE POC 98 74 - 99 mg/dL 12/31/2020 8:02 AM CDT [facility] HOSPITAL FELLOW NAME POC BRAD (pn-WILLMERIN Nguyen VICKI 12/31/2020 8:02 AM CDT [facility] Blood, whole 12/31/2020 8:02 AM CDT 12/31/2020 8:21 AM CDT Manisha Cleveland MD POINT OF CARE TESTI NG Performing Organization Address [facility] Co de Phone Number [facility] [id number] [address] [facility] [place] [address] * (ABNORMAL) POC GLUCOSE (12/31/2020 7:12 AM CDT) GLUCOSE POC 100(H) 74 - 99 mg/dL 12/31/2020 7:12 AM CDT [facility] HOSPITAL FELLOW NAME POC PHYLLIS MADERA 12/31/2020 7:12 AM CDT [facility] Blood, whole 12/31/2020 7:12 AM CDT 12/31/2020 7:21 AM CDT Manisha Cleveland MD POINT OF CARE TESTI NG Performing Organization Address City/[facility] [facility]/ZIP Co de Phone Number [facility]# [id number] [address] [place] [address] * POC GLUCOSE (12/31/2020 5:46 AM CDT) Pathologist [facility] [place] GLUCOSE POC 98 74 - 99 mg/dL 12/31/2020 5:46 AM CDT [email or web address] LABORATORY SERVICES - [facility] COMMENT, GLU POC Notified RN/MD 12/31/2020 5:46 AM CDT [email or web address] LABORATORY SERVICES - [facility] HOSPITAL FELLOW NAME POC SOY MCKEON 12/31/2020 5:46 AM CDT [email or web address] LABOR[facility]ORY SERVICES - [facility] Blood, whole 12/31/2020 5:46 AM CDT 12/31/2020 5:54 AM CDT Manisha Cleveland MD POINT OF CARE TESTI NG Performing Organization Address City/[facility]/ZIP Co de Phone Number [facility] SERVICES [facility]# [id number] [address] [place] [address] * (ABNORMAL) CBC WITH DIFFERENTIAL (12/31/2020 5:21 AM CDT) [facility] WBC 6.0 4.0 - 9.8 K/uL 12/31/2020 5:50 AM CDT [email or web address] LABORATORY SERVICES - [facility] RBC 3.95 3.90 - 4.90 M/uL 12/31/2020 5:50 AM CDT [email or web address] LABORATORY SERVICES - [facility] HEMOGLOBIN 11.9 11.8 - 14.8 g/dL 12/31/2020 5:50 AM CDT [email or web address] LABORATORY SERVICES - [facility] HEMATOCRIT 36.0 35.5 - 44.0 % 12/31/2020 5:50 AM CDT [email or web address] LABORATORY SERVICES - . [facility] MCV 91.1 82.0 - 99.0 fL 12/31/2020 5:50 AM CDT [email or web address] LABORATORY SERVICES - . [facility] MCH 30.1 27.2 - 32.6 pg 12/31/2020 5:50 AM CDT [email or web address] LABORATORY SERVICES - [facility] MCHC 33.1 31.5 - 35.5 g/dL 12/31/2020 5:50 AM CDT [email or web address] LABORATORY SERVICES - [facility] RDW 15.0(H) 11.5 - 14.5 % 12/31/2020 5:50 AM CDT [facility] LABORATORY SERVICES - [facility] RDW-STDEV 50.5(H) 37.1 - 48.7 fL 12/31/2020 5:50 AM CDT [email or web address] LABORATORY SERVICES - [facility] PLATELETS 219 140 - 350 K/uL 12/31/2020 5:50 AM CDT [email or web address] LABORATORY SERVICES - [facility] MPV 9.1(L) 9.3 - 12.4 fL 12/31/2020 5:50 AM CDT [email or web address] [facility]ORY SERVICES - [facility] NEUTROPHILS 55 % 12/31/2020 5:50 AM CDT [email or web address] [facility] - [facility] LYMPHOCYTES 36 % 12/31/2020 5:50 AM CDT [email or web address] [facility] - [facility] MONOCYTES 6 % 12/31/2020 5:50 AM CDT [email or web address] [facility] - [facility] EOSINOPHILS 1 % 12/31/2020 5:50 AM CDT [email or web address] [facility] - [facility] BASOPHILS 0 % 12/31/2020 5:50 AM CDT [email or web address] [facility] SERVICES - [facility] IMMATURE GRANULOCYTES 1 % 12/31/2020 5:50 AM CDT [email or web address] [facility] - [facility] Comment:IG (Immature Granulo cyte) count includes Metamyelocytes, Myelocytes, and Promyelocytes NEUTROPHIL ABSOLUTE 3.29 1.90 - 7.00 K/uL 12/31/2020 5:50 AM CDT [email or web address] [facility]ATORY SERVICES - [facility] LYMPHOCYTE ABSOLUTE 2.17 0.70 - 4.50 K/uL 12/31/2020 5:50 AM CDT [email or web address] LAB[facility]ATORY SERVICES - [facility] MONOCYTE ABSOLUTE 0.38 0.10 - 1.30 K/uL 12/31/2020 5:50 AM CDT [email or web address] [facility]ATORY SERVICES - [facility] EOSINOPHIL ABSOLUTE 0.08 0.00 - 0.70 K/uL 12/31/2020 5:50 AM CDT [email or web address] LAB[facility]ATORY SERVICES - [facility] BASOPHILS ABSOLUTE 0.02 0.00 - 0.20 K/uL 12/31/2020 5:50 AM CDT [facility]ORY [facility] IMMATURE GRANULOCYTES ABSOLUTE 0.06(H) 0.00 - 0.03 K/uL 12/31/2020 5:50 AM CDT [facility] LAB[facility]ORY [facility] Blood Venipuncture / Unknown 12/31/2020 5:21 AM CDT 12/31/2020 5:32 AM CDT Manisha Cleveland MD HEMATOLOGY ORDERABL ES Performing Organization Address City/[facility]/ZIP Co de Phone Number [facility]# [id number] [address] [place] [address] * (ABNORMAL) TRIGLYCERIDE (12/31/2020 5:21 AM CDT) TRIGLYCERIDE 588(H) <150 mg/dL 12/31/2020 6:18 AM CDT [facility] Blood Venipuncture / Unknown 12/31/2020 5:21 AM CDT 12/31/2020 5:32 AM CDT Narrative [facility] - 12/31/2020 6:18 AM CDT TRIGLYCERIDES ? mg/dL Normal ?< 150 Borderline High ?150 - 199 High ? 200 - 499 Very High ? >= 500 Based on AHA/NCEP Guidelines. Manisha Cleveland MD CHEMISTRY ORDERABLE S Performing Organization Address [facility] Co de Phone Number [facility]# [id number] [address] [place] [address] * POC GLUCOSE (12/31/2020 4:48 AM CDT) GLUCOSE POC 96 74 - 99 mg/dL 12/31/2020 4:48 AM CDT [facility] LABORATORY SERVICES - [facility] HOSPITAL FELLOW NAME POC SOY MCKEON 12/31/2020 4:48 AM CDT [email or web address] LABORATORY SERVICES - [facility] Blood, whole 12/31/2020 4:48 AM CDT 12/31/2020 4:56 AM CDT Manisha Cleveland MD POINT OF CARE TESTI NG Performing Organization Address [facility]/ZIP Co de Phone Number [facility]# [id number] [address] [facility] [place] [place] [address] * (ABNORMAL) POC GLUCOSE (12/31/2020 4:15 AM CDT) GLUCOSE POC 114(H) 74 - 99 mg/dL 12/31/2020 4:15 AM CDT [email or web address] LABORATORY SERVICES - [facility] HOSPITAL FELLOW NAME POC PHYLLIS MADERA 12/31/2020 4:15 AM CDT [email or web address] LABORATORY SERVICES - [facility] Blood, whole 12/31/2020 4:15 AM CDT 12/31/2020 4:23 AM CDT Manisha Cleveland MD POINT OF CARE TESTI NG Performing Organization Address [facility] Co de Phone Number [facility]# [id number] [address] [place] [address] [place] [address] * (ABNORMAL) POC GLUCOSE (12/31/2020 3:46 AM CDT) GLUCOSE POC 110(H) 74 - 99 mg/dL 12/31/2020 3:46 AM CDT [email or web address] LABORATORY SERVICES - [facility] COMMENT, GLU POC Notified RN/MD 12/31/2020 3:46 AM CDT [email or web address] LABORATORY SERVICES - [facility] HOSPITAL FELLOW NAME POC SOY MCKEON 12/31/2020 3:46 AM CDT [email or web address] LABORATORY SERVICES - [facility] Blood, whole 12/31/2020 3:46 AM CDT 12/31/2020 4:05 AM CDT Manisha Cleveland MD POINT OF CARE TESTI NG Performing Organization Address [facility] Co de Phone Number [facility] [employer] [facility]# [id number] [address] [place] [address] * (ABNORMAL) POC GLUCOSE (12/31/2020 2:48 AM CDT) GLUCOSE POC 177(H) 74 - 99 mg/dL 12/31/2020 2:48 AM CDT [email or web address] LABORATORY SERVICES - [facility] COMMENT, GLU POC Notified RN/ 12/31/2020 2:48 AM CDT [email or web address] LABORATORY SERVICES - [facility] HOSPITAL FELLOW NAME POC SOY MCKEON 12/31/2020 2:48 AM CDT [email or web address] LABORATORY SERVICES [facility] Blood, whole 12/31/2020 2:48 AM CDT 12/31/2020 2:59 AM CDT Manisha Cleveland MD POINT OF CARE TESTI NG Performing Organization Address [facility] Co de Phone Number [facility] [employer] [facility]# [id number] [address] [place] [address] * (ABNORMAL) POC GLUCOSE (12/31/2020 1:44 AM CDT) GLUCOSE POC 110(H) 74 - 99 mg/dL 12/31/2020 1:44 AM CDT [email or web address] LABORATORY SERVICES - [facility] COMMENT, GLU POC Notified RN/ 12/31/2020 1:44 AM CDT [email or web address] LABORATORY SERVICES - [facility] HOSPITAL FELLOW NAME POC SOY MCKEON 12/31/2020 1:44 AM CDT [email or web address] LABORATORY SERVICES [facility] Blood, whole 12/31/2020 1:44 AM CDT 12/31/2020 1:51 AM CDT Manisha Cleveland MD POINT OF CARE TESTI NG Performing Organization Address City/[facility]/ZIP Co de Phone Number [facility] LABORATORY SERVICES [facility] CLIA# [id number] [address] [place] [address] * (ABNORMAL) POC GLUCOSE (12/31/2020 12:48 AM CDT) GLUCOSE POC 104(H) 74 - 99 mg/dL 12/31/2020 12:48 AM CDT [facility] LABORATORY SERVICES - [facility] HOSPITAL FELLOW NAME POC PHYLLIS MADERA 12/31/2020 12:48 AM CDT [facility] LABORATORY SERVICES [facility] Blood, whole 12/31/2020 12:4 8 AM CDT 12/31/2020 12:58 AM CDT Manisha Cleveland MD POINT OF CARE TESTI NG Performing Organization Address City/[facility]/ZIP Co de Phone Number [facility] LABORATORY [facility] CLIA# [id number] [address] [place] [address] * (ABNORMAL) POC GLUCOSE (12/31/2020 12:07 AM CDT) GLUCOSE POC 108(H) 74 - 99 mg/dL 12/31/2020 12:07 AM CDT [facility] LABORATORY SERVICES [facility] COMMENT, GLU POC Notified RN/MD 12/31/2020 12:07 AM CDT [facility] LABORATORY SERVICES - [facility] HOSPITAL FELLOW NAME POC OSY MCKEON 12/31/2020 12:07 AM CDT [facility] LABORATORY SERVICES [facility] Blood, whole 12/31/2020 12:0 7 AM CDT 12/31/2020 12:15 AM CDT Manisha Cleveland MD POINT OF CARE TESTI NG [facility] LABORATORY [facility] CLIA# [id number] [address] [place] [address] * (ABNORMAL) POC GLUCOSE (12/30/2020 11:46 PM CDT) GLUCOSE POC 110(H) 74 - 99 mg/dL 12/30/2020 11:46 PM CDT [facility] LABORATORY SERVICES - [facility] HOSPITAL FELLOW NAME POC PHYLLIS MADERA 12/30/2020 11:46 PM CDT [facility] LABORATORY SERVICES [facility] Blood, whole 12/30/2020 11:4 6 PM CDT 12/30/2020 11:59 PM CDT Manisha Cleveland MD POINT OF CARE TESTI NG Performing Organization Address City/[facility]/ZIP Co de Phone Number [facility] LABORATORY [facility] CLIA# [id number] [address] [place] [address] * POC GLUCOSE (12/30/2020 11:05 PM CDT) GLUCOSE POC 99 74 - 99 mg/dL 12/30/2020 11:05 PM CDT [facility] COMMENT, GLU POC Notified RN/ 12/30/2020 11:05 PM CDT [facility] - [facility] HOSPITAL FELLOW NAME POC SOY MCKEON 12/30/2020 11:05 PM CDT [facility] Blood, whole 12/30/2020 11:0 5 PM CDT 12/30/2020 11:14 PM CDT Manisha Cleveland MD POINT OF CARE TESTI NG [facility] LABORATORY [facility] CLIA# [id number] [address] [place] [address] * (ABNORMAL) POC GLUCOSE (12/30/2020 10:03 PM CDT) GLUCOSE POC 132(H) 74 - 99 mg/dL 12/30/2020 10:03 PM CDT [facility] COMMENT, GLU POC Notified RN/ 12/30/2020 10:03 PM CDT [facility] HOSPITAL FELLOW NAME POC SOY MCKEON 12/30/2020 10:03 PM CDT [facility] LABORATORY SERVICES [facility] Blood, whole 12/30/2020 10:0 3 PM CDT 12/30/2020 10:10 PM CDT Manisha Cleveland MD POINT OF CARE TESTI NG Performing Organization Address [facility] Co de Phone Number [facility] LABORATORY [facility]# [id number] [address] [facility] [address] [place] [address] * POC GLUCOSE (12/30/2020 9:00 PM CDT) GLUCOSE POC 94 74 - 99 mg/dL 12/30/2020 9:00 PM CDT [facility] LABORATORY SERVICES [facility] COMMENT, GLU POC Notified RN/ 12/30/2020 9:00 PM CDT [facility] LABORATORY SERVICES [facility] HOSPITAL FELLOW NAME POC SOY MCKEON 12/30/2020 9:00 PM CDT [facility] LABORATORY SERVICES [facility] Blood, whole 12/30/2020 9:00 PM CDT 12/30/2020 9:14 PM CDT Manisha Cleveland MD POINT OF CARE TESTI NG Performing Organization Address [facility] Co de Phone Number [facility] LABORATORY [facility]# [id number] [address] [place] [address] [place] [address] * (ABNORMAL) POC GLUCOSE (12/30/2020 8:18 PM CDT) GLUCOSE POC 105(H) 74 - 99 mg/dL 12/30/2020 8:18 PM CDT [facility] LABORATORY SERVICES [facility] COMMENT, GLU POC Notified RN/ 12/30/2020 8:18 PM CDT [facility] LABORATORY SERVICES [facility] HOSPITAL FELLOW NAME POC SOY MCKEON 12/30/2020 8:18 PM CDT [facility] LABORATORY SERVICES [facility] Blood, whole 12/30/2020 8:18 PM CDT 12/30/2020 8:31 PM CDT Manisha Cleveland MD POINT OF CARE TESTI NG [facility] LABORATORY [facility] CLIA# [id number] [address] [address] * (ABNORMAL) POC GLUCOSE (12/30/2020 6:48 PM CDT) GLUCOSE POC 150(H) 74 - 99 mg/dL 12/30/2020 6:48 PM CDT [facility] LABORATORY SERVICES [facility] HOSPITAL FELLOW NAME POC JAZMINE BECK 12/30/2020 6:48 PM CDT [facility] LABORATORY SERVICES [facility] Blood, whole 12/30/2020 6:48 PM CDT 12/30/2020 7:00 PM CDT Manisha Cleveland MD POINT OF CARE TESTI NG Performing Organization Address City/[facility]/ZIP Co de Phone Number [facility] LABORATORY [facility] CLIA# [id number] [address] [place] [address] * (ABNORMAL) POC GLUCOSE (12/30/2020 5:06 PM CDT) GLUCOSE POC 173(H) 74 - 99 mg/dL 12/30/2020 5:06 PM CDT [facility] LABORATORY SERVICES [facility] HOSPITAL FELLOW NAME POC JAZMINE BECK 12/30/2020 5:06 PM CDT [facility] LABORATORY SERVICES [facility] Blood, whole 12/30/2020 5:06 PM CDT 12/30/2020 5:24 PM CDT Manisha Cleveland MD POINT OF CARE TESTI NG [facility] LABORATORY [facility] CLIA# [id number] [address] [place] [address] * (ABNORMAL) POC GLUCOSE (12/30/2020 4:02 PM CDT) GLUCOSE POC 147(H) 74 - 99 mg/dL 12/30/2020 4:02 PM CDT [facility] LABORATORY SERVICES [facility] COMMENT, GLU POC Notified CLAU/ 12/30/2020 4:02 PM CDT [facility] LABORATORY SERVICES - [facility] HOSPITAL FELLOW NAME POC JOANNA, DEMETRIO 12/30/2020 4:02 PM CDT [facility] LABORATORY SERVICES [facility] Blood, whole 12/30/2020 4:02 PM CDT 12/30/2020 4:11 PM CDT Manisha Cleveland MD POINT OF CARE TESTI NG Performing Organization Address [facility]/ZIP Co de Phone Number [facility] LABORATORY [facility] CLIA# [id number] [address] [place] [address] * (ABNORMAL) POC GLUCOSE (12/30/2020 2:59 PM CDT) GLUCOSE POC 145(H) 74 - 99 mg/dL 12/30/2020 2:59 PM CDT [facility] LABORATORY SERVICES - [facility] COMMENT, GLU POC Notified CLAU/ 12/30/2020 2:59 PM CDT [facility] LABORATORY SERVICES [facility] HOSPITAL FELLOW NAME POC JOANNA, DEMETRIO 12/30/2020 2:59 PM CDT [facility] LABORATORY SERVICES [facility] Blood, whole 12/30/2020 2:59 PM CDT 12/30/2020 3:06 PM CDT Manisha Cleveland MD POINT OF CARE TESTI NG Performing Organization Address City/[facility]/ZIP Co de Phone Number [facility] LAB[facility]AT[facility] CLIA# [id number] [address] [place] [address] * (ABNORMAL) POC GLUCOSE (12/30/2020 2:03 PM CDT) GLUCOSE POC 134(H) 74 - 99 mg/dL 12/30/2020 2:03 PM CDT [facility] LABORATORY SERVICES - [facility] COMMENT, GLU POC Notified RN/MD 12/30/2020 2:03 PM CDT [facility] LABORATORY SERVICES - [facility] HOSPITAL FELLOW NAME POC JAZMINE BECK 12/30/2020 2:03 PM CDT [facility] LABORATORY SERVICES - [facility] Blood, whole 12/30/2020 2:03 PM CDT 12/30/2020 2:18 PM CDT Manisha Cleveland MD POINT OF CARE TESTChris WOLF [facility] LABORATORY [facility] CLIA# [id number] [address] [place] [address] * (ABNORMAL) POC GLUCOSE (12/30/2020 12:47 PM CDT) GLUCOSE POC 103(H) 74 - 99 mg/dL 12/30/2020 12:47 PM CDT [facility] LABORATORY SERVICES - [facility] HOSPITAL FELLOW NAME POC JAZMINE BECK 12/30/2020 12:47 PM CDT [facility] LABORATORY SERVICES [facility] Blood, whole 12/30/2020 12:4 7 PM CDT 12/30/2020 1:03 PM CDT Manisha Cleveland MD POINT OF CARE TESTChris WOLF [facility] LABORATORY [facility] CLIA# [id number] [address] [place] [address] * (ABNORMAL) POC GLUCOSE (12/30/2020 11:39 AM CDT) GLUCOSE POC 106(H) 74 - 99 mg/dL 12/30/2020 11:39 AM CDT [facility] LABORATORY SERVICES - [facility] HOSPITAL FELLOW NAME POC DOREEN BURGESS 12/30/2020 11:39 AM CDT [email or web address] LABORATORY SERVICES [facility] Blood, whole 12/30/2020 11:3 9 AM CDT 12/30/2020 11:55 AM CDT Manisha Cleveland MD POINT OF CARE TESTI NG Performing Organization Address City/[facility]/ZIP Co de Phone Number [facility] LABORATORY [facility] CLIA# [id number] [address] [place] [address] * (ABNORMAL) POC GLUCOSE (12/30/2020 10:50 AM CDT) GLUCOSE POC 122(H) 74 - 99 mg/dL 12/30/2020 10:50 AM CDT [email or web address] LABORATORY SERVICES [facility] HOSPITAL FELLOW NAME POC DOREEN BURGESS 12/30/2020 10:50 AM CDT [email or web address] LABORATORY SERVICES [facility] Blood, whole 12/30/2020 10:5 0 AM CDT 12/30/2020 10:57 AM CDT Manisha Cleveland MD POINT OF CARE TESTI NG Performing Organization Address [facility]/ZIP Co de Phone Number [facility] [employer] [facility] CLIA# [id number] [address] [place] [address] * (ABNORMAL) POC GLUCOSE (12/30/2020 9:47 AM CDT) GLUCOSE POC 136(H) 74 - 99 mg/dL 12/30/2020 9:47 AM CDT [email or web address] LABORATORY SERVICES [facility] HOSPITAL FELLOW NAME POC DOREEN BURGESS 12/30/2020 9:47 AM CDT [email or web address] LABORATORY SERVICES [facility] Blood, whole 12/30/2020 9:47 AM CDT 12/30/2020 9:59 AM CDT Manisha Cleveland MD POINT OF CARE TESTI NG [facility] CLIA# [id number] [address] [place] [address] * (ABNORMAL) POC GLUCOSE (12/30/2020 8:50 AM CDT) GLUCOSE POC 123(H) 74 - 99 mg/dL 12/30/2020 8:50 AM CDT [facility] LABORATORY SERVICES - [facility] HOSPITAL FELLOW NAME POC HUDSON REMY 12/30/2020 8:50 AM CDT [facility] LABORATORY SERVICES [facility] Blood, whole 12/30/2020 8:50 AM CDT 12/30/2020 9:00 AM CDT Manisha Cleveland MD POINT OF CARE TESTChris WOLF [facility] [employer] [facility] CLIA# [id number] [address] [place] [address] * (ABNORMAL) POC GLUCOSE (12/30/2020 7:50 AM CDT) GLUCOSE POC 167(H) 74 - 99 mg/dL 12/30/2020 7:50 AM CDT [facility] LABORATORY SERVICES [facility] HOSPITAL FELLOW NAME POC DOREEN BURGESS 12/30/2020 7:50 AM CDT [facility] LABORATORY SERVICES [facility] Blood, whole 12/30/2020 7:50 AM CDT 12/30/2020 8:02 AM CDT Manisha Cleveland MD POINT OF CARE TESTI NG [facility] [employer] [facility] CLIA# [id number] [address] [place] [address] * (ABNORMAL) POC GLUCOSE (12/30/2020 6:44 AM CDT) GLUCOSE POC 119(H) 74 - 99 mg/dL 12/30/2020 6:44 AM CDT [facility] LABORATORY SERVICES [facility] HOSPITAL FELLOW NAME JEFFRY ZAPATA 12/30/2020 6:44 AM CDT [facility] LABORATORY SERVICES [facility] Blood, whole 12/30/2020 6:44 AM CDT 12/30/2020 6:52 AM CDT Manisha Cleveland MD POINT OF CARE TESTI LUCIANO Performing Organization Address City/[facility]/ZIP Co de Phone Number [facility] LABORATORY [facility] CLIA# [id number] [address] [place] [address] * (ABNORMAL) POC GLUCOSE (12/30/2020 5:47 AM CDT) GLUCOSE POC 104(H) 74 - 99 mg/dL 12/30/2020 5:47 AM CDT [facility] LABORATORY SERVICES [facility] HOSPITAL FELLOW NAME JEFFRY ZAPATA 12/30/2020 5:47 AM CDT [facility] Blood, whole 12/30/2020 5:47 AM CDT 12/30/2020 5:56 AM CDT Manisha Cleveland MD POINT OF CARE TESTI LUCIANO Performing Organization Address City/[facility]/ZIP Co de Phone Number [facility] LABORATORY [facility] CLIA# [id number] [address] [place] [address] * (ABNORMAL) CBC WITH DIFFERENTIAL (12/30/2020 4:34 AM CDT) WBC 4.8 4.0 - 9.8 K/uL 12/30/2020 5:08 AM CDT [email or web address] LABORATORY SERVICES - [facility] RBC 3.88(L) 3.90 - 4.90 M/uL 12/30/2020 5:08 AM CDT [facility] HEMOGLOBIN 11.7(L) 11.8 - 14.8 g/dL 12/30/2020 5:08 AM CDT [facility] LABORATORY SERVICES - [facility] HEMATOCRIT 35.8 35.5 - 44.0 % 12/30/2020 5:08 AM CDT [facility] LABORATORY SERVICES - [facility] MCV 92.3 82.0 - 99.0 fL 12/30/2020 5:08 AM CDT [facility] LABORATORY SERVICES - [facility] MCH 30.2 27.2 - 32.6 pg 12/30/2020 5:08 AM CDT [facility] MCHC 32.7 31.5 - 35.5 g/dL 12/30/2020 5:08 AM CDT [facility] RDW 15.0(H) 11.5 - 14.5 % 12/30/2020 5:08 AM CDT [facility] RDW-STDEV 50.8(H) 37.1 - 48.7 fL 12/30/2020 5:08 AM CDT [facility] PLATELETS 211 140 - 350 K/uL 12/30/2020 5:08 AM CDT [facility] MPV 8.8(L) 9.3 - 12.4 fL 12/30/2020 5:08 AM CDT [facility] NEUTROPHILS 55 % 12/30/2020 5:08 AM CDT [facility] LYMPHOCYTES 36 % 12/30/2020 5:08 AM CDT [facility] MONOCYTES 7 % 12/30/2020 5:08 AM CDT [facility] EOSINOPHILS 2 % 12/30/2020 5:08 AM CDT [facility] BASOPHILS 0 % 12/30/2020 5:08 AM CDT [facility] IMMATURE GRANULOCYTES 0 % 12/30/2020 5:08 AM CDT [facility] NEUTROPHIL ABSOLUTE 2.65 1.90 - 7.00 K/uL 12/30/2020 5:08 AM CDT [facility] LYMPHOCYTE ABSOLUTE 1.70 0.70 - 4.50 K/uL 12/30/2020 5:08 AM CDT [facility] MONOCYTE ABSOLUTE 0.31 0.10 - 1.30 K/uL 12/30/2020 5:08 AM CDT [facility] EOSINOPHIL ABSOLUTE 0.09 0.00 - 0.70 K/uL 12/30/2020 5:08 AM CDT [facility] BASOPHILS ABSOLUTE 0.01 0.00 - 0.20 K/uL 12/30/2020 5:08 AM CDT [facility] IMMATURE GRANULOCYTES ABSOLUTE 0.02 0.00 - 0.03 K/uL 12/30/2020 5:08 AM CDT [facility] Blood Venipuncture / Unknown 12/30/2020 4:34 AM CDT 12/30/2020 4:40 AM CDT Manisha Cleveland MD HEMATOLOGY ORDERABL ES Performing Organization Address [facility] Co de Phone Number [facility]# [phone] [address] [place] [address] * (ABNORMAL) TRIGLYCERIDE (12/30/2020 4:34 AM CDT) TRIGLYCERIDE 748(H) <150 mg/dL 12/30/2020 5:35 AM CDT [facility] Blood Venipuncture / Unknown 12/30/2020 4:34 AM CDT 12/30/2020 4:40 AM CDT Narrative [facility] - [facility] - 12/30/2020 5:35 AM CDT TRIGLYCERIDES ? mg/dL Normal ?< 150 Borderline High ?150 - 199 High ? 200 - 499 Very High ? >= 500 Based on AHA/NCEP Guidelines. Manisha Cleveland MD CHEMISTRY ORDERABLE S Performing Organization Address [facility] Co de Phone Number [facility] [employer] [facility]# [id number] [address] [place] [address] * (ABNORMAL) POC GLUCOSE (12/30/2020 4:26 AM CDT) GLUCOSE POC 110(H) 74 - 99 mg/dL 12/30/2020 4:26 AM CDT [facility] HOSPITAL FELLOW NAME JEFFRY ZAPATA 12/30/2020 4:26 AM CDT [facility] SERVICES [facility] Blood, whole 12/30/2020 4:26 AM CDT 12/30/2020 4:42 AM CDT Manisha Cleveland MD POINT OF CARE TESTI NG [facility] CLIA# [id number] [address] [place] [address] * (ABNORMAL) POC GLUCOSE (12/30/2020 2:58 AM CDT) GLUCOSE POC 144(H) 74 - 99 mg/dL 12/30/2020 2:58 AM CDT [facility] HOSPITAL FELLOW NAME JEFFRY ZAPATA 12/30/2020 2:58 AM CDT [facility] SERVICES [facility] Blood, whole 12/30/2020 2:58 AM CDT 12/30/2020 3:06 AM CDT Manisha Cleveland MD POINT OF CARE TESTI NG [facility] CLIA# [id number] [address] [place] [address] * (ABNORMAL) POC GLUCOSE (12/30/2020 2:13 AM CDT) GLUCOSE POC 147(H) 74 - 99 mg/dL 12/30/2020 2:13 AM CDT [facility] HOSPITAL FELLOW NAME JEFFRY ZAPATA 12/30/2020 2:13 AM CDT [facility] Blood, whole 12/30/2020 2:13 AM CDT 12/30/2020 2:26 AM CDT Manisha Cleveland MD POINT OF CARE TESTI NG [facility] [id number] [address] [place] [address] * (ABNORMAL) POC GLUCOSE (12/30/2020 12:46 AM CDT) GLUCOSE POC 134(H) 74 - 99 mg/dL 12/30/2020 12:46 AM CDT [facility] HOSPITAL FELLOW NAME OLLIE SHIELDSCHASTITYJEFFRY 12/30/2020 12:46 AM CDT [facility] Blood, whole 12/30/2020 12:4 6 AM CDT 12/30/2020 12:59 AM CDT Manisha Cleveland MD POINT OF CARE TESTChris NG Performing Organization Address [facility]/ZIP Co de Phone Number [facility] CLCT# [id number] [address] [place] [address] * (ABNORMAL) POC GLUCOSE (12/29/2020 11:18 PM CDT) GLUCOSE POC 166(H) 74 - 99 mg/dL 12/29/2020 11:18 PM CDT [facility] HOSPITAL FELLOW NAME OLLIE NO JEFFRY 12/29/2020 11:18 PM CDT [facility] Blood, whole 12/29/2020 11:1 8 PM CDT 12/29/2020 11:26 PM CDT Manisha Cleveland MD POINT OF CARE TESTI NG [facility] CLIA# [id number] [address] [place] [address] * (ABNORMAL) POC GLUCOSE (12/29/2020 10:44 PM CDT) GLUCOSE POC 176(H) 74 - 99 mg/dL 12/29/2020 10:44 PM CDT [facility] HOSPITAL FELLOW NAME JEFFRY ZAPATA 12/29/2020 10:44 PM CDT [facility] Blood, whole 12/29/2020 10:4 4 PM CDT 12/29/2020 10:53 PM CDT Manisha Cleveland MD POINT OF CARE TESTI NG [facility]# [id number] [address] [place] [address] * (ABNORMAL) POC GLUCOSE (12/29/2020 9:43 PM CDT) GLUCOSE POC 181(H) 74 - 99 mg/dL 12/29/2020 9:43 PM CDT [facility] HOSPITAL FELLOW NAME POC JEFFRY CARO 12/29/2020 9:43 PM CDT [facility] Blood, whole 12/29/2020 9:43 PM CDT 12/29/2020 9:54 PM CDT Manisha Cleveland MD POINT OF CARE TESTI NG [facility]# [id number] [address] [place] [address] * (ABNORMAL) POC GLUCOSE (12/29/2020 8:41 PM CDT) GLUCOSE POC 145(H) 74 - 99 mg/dL 12/29/2020 8:41 PM CDT [facility] HOSPITAL FELLOW NAME POC JET CROWDER 12/29/2020 8:41 PM CDT [facility] Blood, whole 12/29/2020 8:41 PM CDT 12/29/2020 8:57 PM CDT Manisha Cleveland MD POINT OF CARE TESTI NG [facility] CLIA# [id number] [address] [place] [address] * POC GLUCOSE (12/29/2020 8:05 PM CDT) GLUCOSE POC 90 74 - 99 mg/dL 12/29/2020 8:05 PM CDT [facility] SERVICES [facility] HOSPITAL FELLOW NAME OLLIE NOJEFFRY 12/29/2020 8:05 PM CDT [facility] Blood, whole 12/29/2020 8:05 PM CDT 12/29/2020 8:18 PM CDT Manisha Cleveland MD POINT OF CARE TESTI NG Performing Organization Address City/[facility]/ZIP Co de Phone Number [facility] CLIA# [id number] [address] [place] [address] * (ABNORMAL) POC GLUCOSE (12/29/2020 7:28 PM CDT) GLUCOSE POC 72(L) 74 - 99 mg/dL 12/29/2020 7:28 PM CDT [facility] HOSPITAL FELLOW NAME JEFFRY ZAPATA 12/29/2020 7:28 PM CDT [facility] Blood, whole 12/29/2020 7:28 PM CDT 12/29/2020 7:38 PM CDT Manisha Cleveland MD POINT OF CARE TESTI NG [facility] SERVICES [facility] CLIA# [id number] [address] [place] [address] * (ABNORMAL) POC GLUCOSE (12/29/2020 6:38 PM CDT) GLUCOSE POC 113(H) 74 - 99 mg/dL 12/29/2020 6:38 PM CDT [facility] SERVICES [facility] COMMENT, GLU POC Notified RN/ 12/29/2020 6:38 PM CDT [facility] SERVICES [facility] HOSPITAL FELLOW NAME POC LIGIA EMERY 12/29/2020 6:38 PM CDT [facility] SERVICES [facility] Blood, whole 12/29/2020 6:38 PM CDT 12/29/2020 6:45 PM CDT Manisha Cleveland MD POINT OF CARE TESTChris WOLF [facility] CLIA# [id number] [address] [place] [address] * (ABNORMAL) POC GLUCOSE (12/29/2020 5:32 PM CDT) [facility] Signature GLUCOSE POC 130(H) 74 - 99 mg/dL 12/29/2020 5:32 PM CDT [facility] SERVICES [facility] COMMENT, GLU POC Notified RN/ 12/29/2020 5:32 PM CDT [facility] HOSPITAL FELLOW NAME POC LIGIA EMERY 12/29/2020 5:32 PM CDT [facility] SERVICES [facility] Blood, whole 12/29/2020 5:32 PM CDT 12/29/2020 5:41 PM CDT Manisha Cleveland MD POINT OF CARE TESTI LUCIANO [facility] CLIA# [id number] [address] [place] [address] * (ABNORMAL) POC GLUCOSE (12/29/2020 4:29 PM CDT) GLUCOSE POC 126(H) 74 - 99 mg/dL 12/29/2020 4:29 PM CDT [facility] COMMENT, GLU POC Notified RN/ 12/29/2020 4:29 PM CDT [facility] - [facility] HOSPITAL FELLOW NAME POC LIGIA EMERY 12/29/2020 4:29 PM CDT [facility] - [facility] Blood, whole 12/29/2020 4:29 PM CDT 12/29/2020 4:39 PM CDT Manisha Cleveland MD POINT OF CARE TESTI NG Performing Organization Address [facility]/ZIP Co de Phone Number [facility]# [id number] [address] [facility] [place] [address] * POC GLUCOSE (12/29/2020 4:05 PM CDT) GLUCOSE POC 77 74 - 99 mg/dL 12/29/2020 4:05 PM CDT [facility] SERVICES [facility] HOSPITAL FELLOW NAME POC JAZMINE BECK 12/29/2020 4:05 PM CDT [facility] SERVICES [facility] Blood, whole 12/29/2020 4:05 PM CDT 12/29/2020 4:43 PM CDT Manisha Cleveland MD POINT OF CARE TESTI NG Performing Organization Address City/[facility]/ZIP Co de Phone Number [facility]# [id number] [address] [place] [address] * (ABNORMAL) POC GLUCOSE (12/29/2020 3:50 PM CDT) GLUCOSE POC 60(L) 74 - 99 mg/dL 12/29/2020 3:50 PM CDT [facility] SERVICES [facility] COMMENT, GLU POC Notified RN/ 12/29/2020 3:50 PM CDT [facility] SERVICES [facility] HOSPITAL FELLOW NAME POC JAZMINE BECK 12/29/2020 3:50 PM CDT [employer] [facility]ORATORY SERVICES - [facility] Blood, whole 12/29/2020 3:50 PM CDT 12/29/2020 4:43 PM CDT Manisha Cleveland MD POINT OF CARE TESTI NG Performing Organization Address [facility]/ZIP Co de Phone Number [facility]# [id number] [address] [place] [address] * (ABNORMAL) POC GLUCOSE (12/29/2020 3:23 PM CDT) GLUCOSE POC 58(L) 74 - 99 mg/dL 12/29/2020 3:23 PM CDT [email or web address] LABORATORY SERVICES [facility] COMMENT, GLU POC Notified RN/ 12/29/2020 3:23 PM CDT [email or web address] LABORATORY SERVICES - [facility] HOSPITAL FELLOW NAME POC CHUN EMERYZABETH 12/29/2020 3:23 PM CDT [email or web address] LABORATORY SERVICES [facility] Blood, whole 12/29/2020 3:23 PM CDT 12/29/2020 3:31 PM CDT Manisha Cleveland MD POINT OF CARE TESTChris NG Performing Organization Address [facility] Co de Phone Number [facility]# [id number] [address] [facility] [place] [address] * (ABNORMAL) POC GLUCOSE (12/29/2020 2:23 PM CDT) GLUCOSE POC 105(H) 74 - 99 mg/dL 12/29/2020 2:23 PM CDT [email or web address] LABORATORY SERVICES [facility] COMMENT, GLU POC Notified RN/MD 12/29/2020 2:23 PM CDT [email or web address] LABORATORY SERVICES - [facility] HOSPITAL FELLOW NAME POC JAZMINE BECK 12/29/2020 2:23 PM CDT [email or web address] LABORATORY SERVICES [facility] Blood, whole 12/29/2020 2:23 PM CDT 12/29/2020 2:31 PM CDT Manisha Cleveland MD POINT OF CARE TESTChris WOLF Performing Organization Address [facility]/ZIP Co de Phone Number [facility] CLIA# [id number] [address] [place] [address] * (ABNORMAL) POC GLUCOSE (12/29/2020 10:55 AM CDT) GLUCOSE POC 154(H) 74 - 99 mg/dL 12/29/2020 10:55 AM CDT [email or web address] LABORATORY SERVICES [facility] COMMENT, GLU POC Notified RN/MD 12/29/2020 10:55 AM CDT [email or web address] LABORATORY SERVICES [facility] HOSPITAL FELLOW NAME POC LIGIA EMERY 12/29/2020 10:55 AM CDT [email or web address] LABORATORY SERVICES [facility] Blood, whole 12/29/2020 10:5 5 AM CDT 12/29/2020 11:09 AM CDT Manisha Cleveland MD POINT OF CARE TESTChris WOLF Performing Organization Address City/[facility]/ZIP Co de Phone Number [facility]# [id number] [address] [place] [address] * (ABNORMAL) CBC WITH DIFFERENTIAL (12/29/2020 5:30 AM CDT) WBC 5.4 4.0 - 9.8 K/uL 12/29/2020 6:05 AM CDT [email or web address] LABORATORY SERVICES [facility] RBC 4.42 3.90 - 4.90 M/uL 12/29/2020 6:05 AM CDT [email or web address] LABORATORY SERVICES [facility] HEMOGLOBIN 13.3 11.8 - 14.8 g/dL 12/29/2020 6:05 AM CDT [email or web address] LABORATORY SERVICES - [facility] HEMATOCRIT 39.9 35.5 - 44.0 % 12/29/2020 6:05 AM CDT [email or web address] LABORATORY SERVICES - [facility] MCV 90.3 82.0 - 99.0 fL 12/29/2020 6:05 AM CDT [email or web address] LABORATORY SERVICES - [facility] MCH 30.1 27.2 - 32.6 pg 12/29/2020 6:05 AM [employer] LABORATORY SERVICES - [facility] MCHC 33.3 31.5 - 35.5 g/dL 12/29/2020 6:05 AM [employer] LABORATORY SERVICES - [facility] RDW 15.0(H) 11.5 - 14.5 % 12/29/2020 6:05 AM Isabella OliverT [email or web address] LABORATORY SERVICES - [facility] RDW-STDEV 50.0(H) 37.1 - 48.7 fL 12/29/2020 6:05 AM Isabella OliverT [email or web address] LABORATORY SERVICES - [facility] PLATELETS 222 140 - 350 K/uL 12/29/2020 6:05 AM [employer] LABORATORY SERVICES - [facility] MPV 9.1(L) 9.3 - 12.4 fL 12/29/2020 6:05 AM [employer] LABORATORY SERVICES - [facility] NEUTROPHILS 69 % 12/29/2020 6:05 AM Isabella OliverT [email or web address] LABORATORY SERVICES - [facility] LYMPHOCYTES 24 % 12/29/2020 6:05 AM [employer] LABORATORY SERVICES - [facility] MONOCYTES 5 % 12/29/2020 6:05 AM [employer] LABORATORY SERVICES - [facility] EOSINOPHILS 1 % 12/29/2020 6:05 AM [employer] LABORATORY SERVICES - [facility] BASOPHILS 0 % 12/29/2020 6:05 AM [employer] LABORATORY SERVICES - [facility] IMMATURE GRANULOCYTES 0 % 12/29/2020 6:05 AM CDT [email or web address] LABORATORY SERVICES - [facility] NEUTROPHIL ABSOLUTE 3.76 1.90 - 7.00 K/uL 12/29/2020 6:05 AM CDT [email or web address] LABORATORY SERVICES - [facility] LYMPHOCYTE ABSOLUTE 1.30 0.70 - 4.50 K/uL 12/29/2020 6:05 AM [employer] LABORATORY SERVICES - [facility] MONOCYTE ABSOLUTE 0.27 0.10 - 1.30 K/uL 12/29/2020 6:05 AM CDT [email or web address] LABORATORY SERVICES - [facility] EOSINOPHIL ABSOLUTE 0.06 0.00 - 0.70 K/uL 12/29/2020 6:05 AM CDT [facility] - [facility] BASOPHILS ABSOLUTE 0.02 0.00 - 0.20 K/uL 12/29/2020 6:05 AM CDT [facility] - [facility] IMMATURE GRANULOCYTES ABSOLUTE 0.02 0.00 - 0.03 K/uL 12/29/2020 6:05 AM CDT [facility] - [facility] Blood Venipuncture / Unknown 12/29/2020 5:30 AM CDT 12/29/2020 5:49 AM CDT Manisha Cleveland MD HEMATOLOGY ORDERABL ES Performing Organization Address [facility] Co de Phone Number [facility]# [id number] [address] [place] [address] * (ABNORMAL) TRIGLYCERIDE (12/29/2020 5:30 AM CDT) TRIGLYCERIDE 1,073(H) <150 mg/dL 12/29/2020 6:45 AM CDT [facility] Blood Venipuncture / Unknown 12/29/2020 5:30 AM CDT 12/29/2020 5:49 AM CDT Narrative [facility] - [facility] - 12/29/2020 6:45 AM CDT TRIGLYCERIDES ? mg/dL Normal ?< 150 Borderline High ?150 - 199 High ? 200 - 499 Very High ? >= 500 Based on AHA/NCEP Guidelines. Manisha Cleveland MD CHEMISTRY ORDERABLE S Performing Organization Address [facility] Co de Phone Number [facility]# [id number] [address] [place] [address] * (ABNORMAL) BASIC METABOLIC PANEL (12/29/2020 5:30 AM CDT) SODIUM 137 136 - 145 mmol/L 12/29/2020 6:31 AM [employer] SERVICES - [facility] POTASSIUM 3.5 3.5 - 5.0 mmol/L 12/29/2020 6:31 AM [facility] [employer] SERVICES - . [facility] CHLORIDE 104 98 - 107 mmol/L 12/29/2020 6:31 AM [employer] SERVICES - . [facility] CO2 21(L) 22 - 29 mmol/L 12/29/2020 6:31 AM [employer] SERVICES - [facility] CALCIUM 9.3 8.6 - 10.2 mg/dL 12/29/2020 6:31 AM [employer] SERVICES [facility] Comment:Significant change f rom prior result, correlate clinically and redraw if necessary. BUN 4(L) 6 - 20 mg/dL 12/29/2020 6:31 AM [employer] SERVICES [facility] CREATININE 0.43(L) 0.51 - 0.95 mg/dL 12/29/2020 6:31 AM [employer] SERVICES [facility] GLUCOSE 116(H) 74 - 99 mg/dL 12/29/2020 6:31 AM [employer] SERVICES [facility] GFR >60 mL/min/1.7 3 sq meter 12/29/2020 6:31 AM [employer] SERVICES [facility] Comment: eGFR [...] mL/min/1.7 3 sq meter 12/29/2020 6:31 AM [employer] LABORATORY SERVICES [facility] ANION GAP 12 8 - 16 mmol/L 12/29/2020 6:31 AM [employer] SERVICES [facility] Blood Venipuncture / Unknown 12/29/2020 5:30 AM CDT 12/29/2020 5:49 AM CDT Manisha Cleveland MD CHEMISTRY ORDERABLE S Performing Organization Address [facility]/State/ZIP Co de Phone Number [facility] CLIA# [id number] [address] [place] [address] * (ABNORMAL) POC GLUCOSE (12/28/2020 9:26 PM CDT) GLUCOSE POC 169(H) 74 - 99 mg/dL 12/28/2020 9:26 PM CDT [employer] LABORATORY SERVICES - [facility] HOSPITAL FELLOW NAME POC JEFFRY CARO 12/28/2020 9:26 PM CDT [facility] Blood, whole 12/28/2020 9:26 PM CDT 12/28/2020 9:34 PM CDT Manisha Cleveland MD POINT OF CARE TESTI NG Performing Organization Address [facility]/ZIP Co de Phone Number [facility] SERVICES [facility]# [id number] [address] [place] [address] * (ABNORMAL) POC GLUCOSE (12/28/2020 5:42 PM CDT) GLUCOSE POC 149(H) 74 - 99 mg/dL 12/28/2020 5:42 PM CDT [facility] COMMENT, GLU POC Notified RN/MD 12/28/2020 5:42 PM CDT [facility] - [facility] HOSPITAL FELLOW NAME POC VITAKAYLYNLIGIA 12/28/2020 5:42 PM CDT [facility] Blood, whole 12/28/2020 5:42 PM CDT 12/28/2020 5:52 PM CDT Manisha Cleveland MD POINT OF CARE TESTI NG [facility] SERVICES [facility]# [id number] [address] [place] [address] * (ABNORMAL) POC GLUCOSE (12/28/2020 1:01 PM CDT) GLUCOSE POC 148(H) 74 - 99 mg/dL 12/28/2020 1:01 PM CDT [facility] SERVICES - [facility] HOSPITAL FELLOW NAME POC INGRIS DYSON 12/28/2020 1:01 PM CDT [facility] SERVICES [facility] Blood, whole 12/28/2020 1:01 PM CDT 12/28/2020 1:16 PM CDT Manisha Cleveland MD POINT OF CARE TESTI LUCIANO Performing Organization Address [facility]/ZIP Co de Phone Number [facility] SERVICES [facility] CLIA# [id number] [address] [place] [address] * (ABNORMAL) POC GLUCOSE (12/28/2020 11:28 AM CDT) GLUCOSE POC 180(H) 74 - 99 mg/dL 12/28/2020 11:28 AM CDT [facility] SERVICES [facility] COMMENT, GLU POC Notified RN/MD 12/28/2020 11:28 AM CDT [facility] SERVICES - [facility] HOSPITAL FELLOW NAME POC LIGIA EMERY 12/28/2020 11:28 AM CDT [facility] LAB[facility] SERVICES [facility] Blood, whole 12/28/2020 11:2 8 AM CDT 12/28/2020 11:40 AM CDT Manisha Cleveland MD POINT OF CARE TESTI NG [facility] CLIA# [id number] [address] [place] [address] * (ABNORMAL) POC GLUCOSE (12/28/2020 10:46 AM CDT) GLUCOSE POC 136(H) 74 - 99 mg/dL 12/28/2020 10:46 AM CDT [facility] SERVICES - [facility] HOSPITAL FELLOW NAME POC INGRIS DYSON 12/28/2020 10:46 AM CDT [email or web address] LABORATORY SERVICES - [facility] Blood, whole 12/28/2020 10:4 6 AM CDT 12/28/2020 10:53 AM CDT Manisha Cleveland MD POINT OF CARE TESTI NG Performing Organization Address [facility]/ZIP Co de Phone Number [facility]ATORY SERVICES [facility] CLIA# [id number] [address] [place] [address] * (ABNORMAL) POC GLUCOSE (12/28/2020 9:37 AM CDT) GLUCOSE POC 127(H) 74 - 99 mg/dL 12/28/2020 9:37 AM CDT [email or web address] LABORATORY SERVICES - [facility] COMMENT, GLU POC Notified RN/MD 12/28/2020 9:37 AM CDT [email or web address] LABORATORY SERVICES - [facility] HOSPITAL FELLOW NAME POC LIGIA EMERY 12/28/2020 9:37 AM CDT [facility] Blood, whole 12/28/2020 9:37 AM CDT 12/28/2020 9:45 AM CDT Manisha Cleveland MD POINT OF CARE TESTI NG [facility] LABORATORY SERVICES [facility] CLIA# [id number] [address] [place] [address] * (ABNORMAL) POC GLUCOSE (12/28/2020 8:22 AM CDT) GLUCOSE POC 130(H) 74 - 99 mg/dL 12/28/2020 8:22 AM CDT [email or web address] LABORATORY SERVICES - [facility] HOSPITAL FELLOW NAME POC INGRIS DYSON 12/28/2020 8:22 AM CDT [email or web address] LABORATORY SERVICES [facility] Blood, whole 12/28/2020 8:22 AM CDT 12/28/2020 8:40 AM CDT Manisha Cleveland MD POINT OF CARE TESTI NG [facility]ORY [facility] CLIA# [id number] [address] [place] [address] * (ABNORMAL) POC GLUCOSE (12/28/2020 6:59 AM CDT) GLUCOSE POC 125(H) 74 - 99 mg/dL 12/28/2020 6:59 AM CDT [email or web address] [facility]ORAT[facility] HOSPITAL FELLOW NAME JEFFRY ZAPATA 12/28/2020 6:59 AM CDT [email or web address] [facility]ORATORY [facility] Blood, whole 12/28/2020 6:59 AM CDT 12/28/2020 7:07 AM CDT Manisha Cleveland MD POINT OF CARE TESTI NG Performing Organization Address City/[facility]/ZIP Co de Phone Number [facility] [employer] [facility] CLIA# [id number] [address] [place] [address] * (ABNORMAL) POC GLUCOSE (12/28/2020 5:40 AM CDT) GLUCOSE POC 117(H) 74 - 99 mg/dL 12/28/2020 5:40 AM CDT [email or web address] [facility]ORATORY [facility] HOSPITAL FELLOW NAME POC JEFFRY CARO 12/28/2020 5:40 AM CDT [email or web address] [facility]ORAT[facility] Blood, whole 12/28/2020 5:40 AM CDT 12/28/2020 5:50 AM CDT Manisha Cleveland MD POINT OF CARE TESTI NG [facility] CLIA# [id number] [address] [place] [address] * (ABNORMAL) POC GLUCOSE (12/28/2020 4:43 AM CDT) GLUCOSE POC 119(H) 74 - 99 mg/dL 12/28/2020 4:43 AM CDT [facility] LABORATORY SERVICES - [facility] COMMENT, GLU POC Notified RN/MD 12/28/2020 4:43 AM CDT [facility] - [facility] HOSPITAL FELLOW NAME POC IVETT TABOR 12/28/2020 4:43 AM CDT [facility] - [facility] Blood, whole 12/28/2020 4:43 AM CDT 12/28/2020 4:50 AM CDT Manisha Cleveland MD POINT OF CARE TESTI NG Performing Organization Address City/[facility]/ZIP Co de Phone Number [facility]# [id number] [address] [place] [address] * (ABNORMAL) POC GLUCOSE (12/28/2020 3:21 AM CDT) [facility] Signature GLUCOSE POC 120(H) 74 - 99 mg/dL 12/28/2020 3:21 AM CDT [facility] LABOR[facility]ORY SERVICES - [facility] HOSPITAL FELLOW NAME POC JEFFRY CARO 12/28/2020 3:21 AM CDT [facility] LABORATORY SERVICES [facility] Blood, whole 12/28/2020 3:21 AM CDT 12/28/2020 4:57 AM CDT Manisha Cleveland MD POINT OF CARE TESTI NG [id number] [place] [address] * (ABNORMAL) CBC WITH DIFFERENTIAL (12/28/2020 3:17 AM CDT) WBC 7.0 4.0 - 9.8 K/uL 12/28/2020 4:01 AM CDT [email or web address] [facility] RBC 3.80(L) 3.90 - 4.90 M/uL 12/28/2020 4:01 AM CDT [email or web address] [facility] HEMOGLOBIN 11.3(L) 11.8 - 14.8 g/dL 12/28/2020 4:01 AM CDT [email or web address] [facility] HEMATOCRIT 34.8(L) 35.5 - 44.0 % 12/28/2020 4:01 AM CDT [email or web address] [facility] MCV 91.4 82.0 - 99.0 fL 12/28/2020 4:01 AM CDT [email or web address] [facility] MCH 29.7 27.2 - 32.6 pg 12/28/2020 4:01 AM CDT [email or web address] LABORATORY SERVICES - [facility] MCHC 32.5 31.5 - 35.5 g/dL 12/28/2020 4:01 AM Isabella OliverT [email or web address] [facility] RDW 15.3(H) 11.5 - 14.5 % 12/28/2020 4:01 AM CDT [email or web address] LABOR[facility]ORY SERVICES - [facility] RDW-STDEV 51.8(H) 37.1 - 48.7 fL 12/28/2020 4:01 AM CDT [email or web address] [facility] PLATELETS 239 140 - 350 K/uL 12/28/2020 4:01 AM [email or web address] [facility]ATORY SERVICES - [facility] MPV 8.8(L) 9.3 - 12.4 fL 12/28/2020 4:01 AM CDT [email or web address] [facility] NEUTROPHILS 70 % 12/28/2020 4:01 AM CDT [email or web address] [facility] LYMPHOCYTES 25 % 12/28/2020 4:01 AM CDT [email or web address] [facility] MONOCYTES 4 % 12/28/2020 4:01 AM CDT [email or web address] [facility] EOSINOPHILS 1 % 12/28/2020 4:01 AM CDT [email or web address] [facility] BASOPHILS 0 % 12/28/2020 4:01 AM CDT [email or web address] [facility] IMMATURE GRANULOCYTES 1 % 12/28/2020 4:01 AM CDT [facility] LABORATORY SERVICES [facility] Comment:IG (Immature Granulo cyte) count includes Metamyelocytes, Myelocytes, and Promyelocytes NEUTROPHIL ABSOLUTE 4.84 1.90 - 7.00 K/uL 12/28/2020 4:01 AM CDT [facility] LABORATORY [facility] LYMPHOCYTE ABSOLUTE 1.70 0.70 - 4.50 K/uL 12/28/2020 4:01 AM CDT [facility] LABORATORY [facility] - . [facility] MONOCYTE ABSOLUTE 0.29 0.10 - 1.30 K/uL 12/28/2020 4:01 AM CDT [facility] LABORATORY [facility] - . [facility] EOSINOPHIL ABSOLUTE 0.05 0.00 - 0.70 K/uL 12/28/2020 4:01 AM CDT [facility] LABORATORY SERVICES [facility] BASOPHILS ABSOLUTE 0.02 0.00 - 0.20 K/uL 12/28/2020 4:01 AM CDT [facility] LABORATORY [facility] IMMATURE GRANULOCYTES ABSOLUTE 0.05(H) 0.00 - 0.03 K/uL 12/28/2020 4:01 AM CDT [facility] [employer] [facility] Blood Venipuncture / Unknown 12/28/2020 3:17 AM CDT 12/28/2020 3:27 AM CDT Manisha Cleveland MD HEMATOLOGY ORDERABL ES [facility] [employer] [facility]# [id number] [address] [place] [address] [facility] [place] [address] * (ABNORMAL) TRIGLYCERIDE (12/28/2020 3:17 AM CDT) TRIGLYCERIDE 986(H) <150 mg/dL 12/28/2020 4:21 AM CDT [facility] [employer] [facility] Blood Venipuncture / Unknown 12/28/2020 3:17 AM CDT 12/28/2020 3:27 AM CDT Narrative [facility] LABORATORY [facility] - 12/28/2020 4:21 AM CDT TRIGLYCERIDES ? mg/dL Normal ?< 150 Borderline High ?150 - 199 High ? 200 - 499 Very High ? >= 500 Based on AHA/NCEP Guidelines. Manisha Cleveland MD CHEMISTRY ORDERABLE S [facility] LABORATORY SERVICES [facility] CLIA# [id number] [address] [facility] [place] [address] * (ABNORMAL) BASIC METABOLIC PANEL (12/28/2020 3:17 AM CDT) SODIUM 137 136 - 145 mmol/L 12/28/2020 4:05 AM [facility] [employer] LABORATORY SERVICES - [facility] POTASSIUM 3.5 3.5 - 5.0 mmol/L 12/28/2020 4:05 AM [facility] [employer] [facility] - . [facility] CHLORIDE 109(H) 98 - 107 mmol/L 12/28/2020 4:05 AM [facility] [employer] [facility] CO2 19(L) 22 - 29 mmol/L 12/28/2020 4:05 AM [facility] [employer] [facility] CALCIUM 7.9(L) 8.6 - 10.2 mg/dL 12/28/2020 4:05 AM [facility] LABORATORY SERVICES - [facility] BUN 3(L) 6 - 20 mg/dL 12/28/2020 4:05 AM [facility] CREATININE 0.40(L) 0.51 - 0.95 mg/dL 12/28/2020 4:05 AM [facility] [employer] [facility] - . [facility] GLUCOSE 119(H) 74 - 99 mg/dL 12/28/2020 4:05 AM [facility] [employer] [facility] - . [facility] GFR >60 mL/min/1.7 3 sq meter 12/28/2020 4:05 AM [facility] [email or web address] LABORATORY SERVICES - [facility] Comment: eGFR [...] 3 sq meter 12/28/2020 4:05 AM CDT [facility] LABORATORY SERVICES [facility] ANION GAP 9 8 - 16 mmol/L 12/28/2020 4:05 AM CDT [facility] LABORATORY SERVICES [facility] Blood Venipuncture / Unknown 12/28/2020 3:17 AM CDT 12/28/2020 3:27 AM CDT Manisha Cleveland MD CHEMISTRY ORDERABLE S Performing Organization Address City/[facility]/ZIP Co de Phone Number [facility]# [id number] [address] [place] [address] * (ABNORMAL) POC GLUCOSE (12/28/2020 2:11 AM CDT) GLUCOSE POC 116(H) 74 - 99 mg/dL 12/28/2020 2:11 AM CDT [facility] LABORATORY SERVICES [facility] HOSPITAL FELLOW NAME POC JEFFRY CARO 12/28/2020 2:11 AM CDT [facility] LABORATORY [facility] Blood, whole 12/28/2020 2:11 AM CDT 12/28/2020 2:20 AM CDT Manisha Cleveland MD POINT OF CARE TESTI NG Performing Organization Address City/[facility]/ZIP Co de Phone Number [facility]# [id number] [address] [place] [place] [address] * POC GLUCOSE (12/28/2020 12:56 AM CDT) GLUCOSE POC 97 74 - 99 mg/dL 12/28/2020 12:56 AM CDT [facility] HOSPITAL FELLOW NAME JEFFRY ZAPATA 12/28/2020 12:56 AM CDT [email or web address] LABORATORY SERVICES [facility] Blood, whole 12/28/2020 12:5 6 AM CDT 12/28/2020 1:07 AM CDT Manisha Cleveland MD POINT OF CARE TESTI NG Performing Organization Address City/[facility]/ZIP Co de Phone Number [facility] LABORATORY [facility]# [id number] [address] [place] [address] * (ABNORMAL) POC GLUCOSE (12/28/2020 12:04 AM CDT) GLUCOSE POC 108(H) 74 - 99 mg/dL 12/28/2020 12:04 AM CDT [facility] HOSPITAL FELLOW NAME JEFFRY ZAPATA 12/28/2020 12:04 AM CDT [facility] Blood, whole 12/28/2020 12:0 4 AM CDT 12/28/2020 12:14 AM CDT Manisha Cleveland MD POINT OF CARE TESTI NG Performing Organization Address City/[facility]/ZIP Co de Phone Number [facility] [employer] [facility]# [id number] [address] [place] [address] * POC GLUCOSE (12/27/2020 11:02 PM CDT) GLUCOSE POC 85 74 - 99 mg/dL 12/27/2020 11:02 PM CDT [email or web address] LABORATORY SERVICES [facility] HOSPITAL FELLOW NAME JEFFRY ZAPATA 12/27/2020 11:02 PM CDT [facility] Blood, whole 12/27/2020 11:0 2 PM CDT 12/27/2020 11:18 PM CDT Manisha Cleveland MD POINT OF CARE TESTI NG [facility] LABORATORY [facility]# [id number] [address] [place] [address] * POC GLUCOSE (12/27/2020 10:03 PM CDT) GLUCOSE POC 95 74 - 99 mg/dL 12/27/2020 10:03 PM CDT [facility] LABORATORY SERVICES [facility] HOSPITAL FELLOW NAME JEFFRY ZAPATA 12/27/2020 10:03 PM CDT [facility] LABORATORY SERVICES [facility] Blood, whole 12/27/2020 10:0 3 PM CDT 12/27/2020 10:14 PM CDT Manisha Cleveland MD POINT OF CARE TESTI NG Performing Organization Address [facility]/ZIP Co de Phone Number [facility] LABORATORY [facility]# [id number] [address] [place] [address] * POC GLUCOSE (12/27/2020 9:05 PM CDT) GLUCOSE POC 85 74 - 99 mg/dL 12/27/2020 9:05 PM CDT [facility] LABORATORY [facility] HOSPITAL FELLOW NAME JEFFRY ZAPATA 12/27/2020 9:05 PM CDT [facility] LABORATORY SERVICES [facility] Blood, whole 12/27/2020 9:05 PM CDT 12/27/2020 9:17 PM CDT Manisha Cleveland MD POINT OF CARE TESTI NG Performing Organization Address City/[facility]/ZIP Co de Phone Number [facility] LABORATORY [facility]# [id number] [address] [place] [address] * POC GLUCOSE (12/27/2020 8:21 PM CDT) GLUCOSE POC 79 74 - 99 mg/dL 12/27/2020 8:21 PM CDT [facility] LABORATORY SERVICES [facility] HOSPITAL FELLOW NAME POC JEFFRY CARO 12/27/2020 8:21 PM CDT [facility] LABORATORY SERVICES [facility] Blood, whole 12/27/2020 8:21 PM CDT 12/27/2020 8:34 PM CDT Manisha Cleveland MD POINT OF CARE TESTI NG [facility] LABORATORY [facility]# [id number] [address] [place] [address] * POC GLUCOSE (12/27/2020 7:31 PM CDT) GLUCOSE POC 74 74 - 99 mg/dL 12/27/2020 7:31 PM CDT [facility] LABORATORY SERVICES [facility] HOSPITAL FELLOW NAME POC KATIA DIAZ 12/27/2020 7:31 PM CDT [facility] LABORATORY SERVICES [facility] Blood, whole 12/27/2020 7:31 PM CDT 12/27/2020 7:44 PM CDT Manisha Cleveland MD POINT OF CARE TESTI NG Performing Organization Address [facility]/ZIP Co de Phone Number [facility] LABORATORY [facility]# [id number] [address] [place] [address] * POC GLUCOSE (12/27/2020 6:01 PM CDT) GLUCOSE POC 75 74 - 99 mg/dL 12/27/2020 6:01 PM CDT [facility] LABORATORY SERVICES [facility] HOSPITAL FELLOW NAME POC KATIA DIAZ 12/27/2020 6:01 PM CDT [facility] LABORATORY SERVICES [facility] Blood, whole 12/27/2020 6:01 PM CDT 12/27/2020 6:12 PM CDT Manisha Cleveland MD POINT OF CARE TESTI NG Performing Organization Address City/[facility]/ZIP Co de Phone Number [facility] LABORATORY [facility]# [id number] [address] [place] [address] * POC GLUCOSE (12/27/2020 4:48 PM CDT) [facility] GLUCOSE POC 85 74 - 99 mg/dL 12/27/2020 4:48 PM CDT [facility] LABORATORY [facility] HOSPITAL FELLOW NAME POC JEFF BURROWS 12/27/2020 4:48 PM CDT [facility] LABORATORY [facility] Blood, whole 12/27/2020 4:48 PM CDT 12/27/2020 4:58 PM CDT Manisha Cleveland MD POINT OF CARE TESTI NG Performing Organization Address [facility]/ZIP Co de Phone Number [facility]# [id number] [address] [place] [address] * (ABNORMAL) TRIGLYCERIDE (12/27/2020 3:31 PM CDT) [facility] TRIGLYCERIDE 1,341(H) <150 mg/dL 12/27/2020 4:29 PM CDT [facility] Blood Venipuncture / Unknown 12/27/2020 3:31 PM CDT 12/27/2020 3:40 PM CDT Narrative [facility] LABORATORY [facility] - 12/27/2020 4:29 PM CDT TRIGLYCERIDES ? mg/dL Normal ?< 150 Borderline High ?150 - 199 High ? 200 - 499 Very High ? >= 500 Based on AHA/NCEP Guidelines. Manisha Cleveland MD CHEMISTRY ORDERABLE S Performing Organization Address City/[facility]/ZIP Co de Phone Number [facility]# [id number] [address] [place] [address] * POC GLUCOSE (12/27/2020 2:56 PM CDT) GLUCOSE POC 79 74 - 99 mg/dL 12/27/2020 2:56 PM CDT [facility] - [facility] HOSPITAL FELLOW NAME POC JEFF BURROWS 12/27/2020 2:56 PM CDT [facility] - [facility] Blood, whole 12/27/2020 2:56 PM CDT 12/27/2020 4:58 PM CDT Manisha Cleveland MD POINT OF CARE TESTI LUCIANO Performing Organization Address City/[facility]/ZIP Co de Phone Number [facility] LABORATORY [facility]# [id number] [address] [place] [address] * POC GLUCOSE (12/27/2020 1:30 PM CDT) GLUCOSE POC 79 74 - 99 mg/dL 12/27/2020 1:30 PM CDT [facility] LABORATORY SERVICES - [facility] HOSPITAL FELLOW NAME POC KATIA DIAZ 12/27/2020 1:30 PM CDT [facility] Blood, whole 12/27/2020 1:30 PM CDT 12/27/2020 1:39 PM CDT Manisha Cleveland MD POINT OF CARE TESTChris WOLF [facility] LABORATORY [facility]# [id number] [address] [place] [address] * (ABNORMAL) POC GLUCOSE (12/27/2020 12:16 PM CDT) GLUCOSE POC 73(L) 74 - 99 mg/dL 12/27/2020 12:16 PM CDT [facility] - [facility]OSPITAL FELLOW NAME POC KATIA DIAZ 12/27/2020 12:16 PM CDT [facility] Blood, whole 12/27/2020 12:1 6 PM CDT 12/27/2020 12:35 PM CDT Manisha Cleveland MD POINT OF CARE TESTI NG [facility] LABORATORY [facility] CLIA# [id number] [address] [place] [address] * POC GLUCOSE (12/27/2020 10:56 AM CDT) GLUCOSE POC 85 74 - 99 mg/dL 12/27/2020 10:56 AM CDT [facility] HOSPITAL FELLOW NAME POC JEFF BURROWS 12/27/2020 10:56 AM CDT [facility] Blood, whole 12/27/2020 10:5 6 AM CDT 12/27/2020 12:33 PM CDT Manisha Cleveland MD POINT OF CARE TESTI NG Performing Organization Address [facility]/ZIP Co de Phone Number [facility] LABORATORY [facility] CLIA# [id number] [address] [place] [place] [address] * POC GLUCOSE (12/27/2020 9:56 AM CDT) GLUCOSE POC 75 74 - 99 mg/dL 12/27/2020 9:56 AM CDT [facility] LABORATORY SERVICES [facility] HOSPITAL FELLOW NAME POC KATIA DIAZ 12/27/2020 9:56 AM CDT [facility] Blood, whole 12/27/2020 9:56 AM CDT 12/27/2020 10:04 AM CDT Manisha Cleveland MD POINT OF CARE TESTI NG Performing Organization Address City/[facility]/ZIP Co de Phone Number [facility] LABORATORY [facility] CLIA# [id number] [address] [place] [place] [address] * TSH REFLEXIVE (12/27/2020 9:05 AM CDT) TSH 1.59 0.27 - 4.20 uIU/mL 12/27/2020 3:55 PM T [facility] [employer] [facility] Blood Venipuncture / Unknown 12/27/2020 9:05 AM CDT 12/27/2020 9:12 AM CDT Manisha Cleveland MD CHEMISTRY ORDERABLE S [facility] [employer] [facility]# [id number] [address] [facility] [address] * (ABNORMAL) BASIC METABOLIC PANEL (12/27/2020 9:05 AM CDT) Pathologist [facility] SODIUM 137 136 - 145 mmol/L 12/27/2020 10:17 AM [facility] [employer] [facility] POTASSIUM 3.4(L) 3.5 - 5.0 mmol/L 12/27/2020 10:17 AM [facility] [employer] [facility] Comment:Slightly hemolyzed. Result may be falsely elevated. CHLORIDE 104 98 - 107 mmol/L 12/27/2020 10:17 AM [facility] [employer] [facility] CO2 24 22 - 29 mmol/L 12/27/2020 10:17 AM [facility] [employer] [facility] CALCIUM 7.6(L) 8.6 - 10.2 mg/dL 12/27/2020 10:17 AM [facility] [employer] [facility] Comment:Significant change f rom prior result, correlate clinically and redraw if necessary. BUN 5(L) 6 - 20 mg/dL 12/27/2020 10:17 AM [facility] [employer] [facility] CREATININE 0.42(L) 0.51 - 0.95 mg/dL 12/27/2020 10:17 AM [facility] [employer] [facility] GLUCOSE 75 74 - 99 mg/dL 12/27/2020 10:17 AM [facility] LABORATORY [facility] GFR >60 mL/min/1.7 3 sq meter 12/27/2020 10:17 AM CDT [employer] [facility] Comment: eGFR has not been validated for [...] 3 sq meter 12/27/2020 10:17 AM CDT [facility] LABORATORY [facility] ANION GAP 9 8 - 16 mmol/L 12/27/2020 10:17 AM CDT [facility] Blood Venipuncture / Unknown 12/27/2020 9:05 AM CDT 12/27/2020 9:12 AM CDT Araceli Santo MD CHEMISTRY ORDERABL ES [facility] [employer] [facility]# [id number] [address] [facility] [place] [address] * TROPONIN 6 HR, 5TH GEN (12/27/2020 9:05 AM CDT) TROPONIN T, 6 HR 5TH GEN <6 <=10 ng/L 12/27/2020 10:09 AM CDT [facility] Blood Venipuncture / Unknown 12/27/2020 9:05 AM CDT 12/27/2020 9:12 AM CDT Narrative [facility] LABORATORY [facility] - 12/27/2020 10:09 AM CDT Troponin Undetectable Unable to calculate delta. Delay in collection of timed specimen beyond recommended collection interval. Results must be interpreted in clinical context. Last Olsen DO CHEMISTRY ORDERABLE S [facility] LABORATORY SERVICES [facility]# [id number] [address] [place] [address] * POC GLUCOSE (12/27/2020 8:31 AM CDT) GLUCOSE POC 78 74 - 99 mg/dL 12/27/2020 8:31 AM CDT [facility] LABORATORY SERVICES [facility] HOSPITAL FELLOW NAME POC JEFF BURROWS 12/27/2020 8:31 AM CDT [facility] LABORATORY SERVICES [facility] Blood, whole 12/27/2020 8:31 AM CDT 12/27/2020 9:24 AM CDT Manisha Cleveland MD POINT OF CARE TESTI NG Performing Organization Address City/[facility]/ZIP Co de Phone Number [facility]ORY [facility]# [id number] [address] [place] [address] * POC GLUCOSE (12/27/2020 7:27 AM CDT) GLUCOSE POC 74 74 - 99 mg/dL 12/27/2020 7:27 AM CDT [facility] LABORATORY SERVICES [facility] COMMENT, GLU POC Notified RN/MD 12/27/2020 7:27 AM CDT [facility] LABORATORY SERVICES [facility] COMMENT 2, GLU POC Repeated Glucose 12/27/2020 7:27 AM CDT [facility] LABORATORY SERVICES [facility] HOSPITAL FELLOW NAME POC AMINA FLOOD 12/27/2020 7:27 AM CDT [facility] Blood, whole 12/27/2020 7:27 AM CDT 12/27/2020 7:42 AM CDT Manisha Cleveland MD POINT OF CARE TESTI NG [facility] LAB[facility]ATORY [facility]# [id number] [address] [place] [address] * POC GLUCOSE (12/27/2020 6:00 AM CDT) GLUCOSE POC 91 74 - 99 mg/dL 12/27/2020 6:00 AM CDT [facility] LABORATORY [facility] FELLOW NAME KENIA LYON 12/27/2020 6:00 AM CDT [facility] SERVICES [facility] Blood, whole 12/27/2020 6:00 AM CDT 12/27/2020 6:10 AM CDT Araceli Santo MD POINT OF CARE TEST ING [facility] [employer] [facility]# [id number] [address] [place] [address] * (ABNORMAL) POC GLUCOSE (12/27/2020 5:34 AM CDT) GLUCOSE POC 73(L) 74 - 99 mg/dL 12/27/2020 5:34 AM CDT [facility] LABORATORY SERVICES - [facility] FELLOW NAME KENIA LYON 12/27/2020 5:34 AM CDT [facility] LABORATORY SERVICES [facility] Blood, whole 12/27/2020 5:34 AM CDT 12/27/2020 5:41 AM CDT Araceli Santo MD POINT OF CARE TEST ING [facility] LABORATORY [facility] CLIA# [id number] [address] [place] [address] * POC GLUCOSE (12/27/2020 5:07 AM CDT) GLUCOSE POC 81 74 - 99 mg/dL 12/27/2020 5:07 AM CDT [facility] - [facility] FELLOW NAME AMINA LOPEZ 12/27/2020 5:07 AM CDT [facility] Blood, whole 12/27/2020 5:07 AM CDT 12/27/2020 5:22 AM CDT Araceli Santo MD POINT OF CARE TEST ING Performing Organization Address City/[facility]/ZIP Co de Phone Number [facility]# [id number] [address] [place] [address] * LACTIC ACID (12/27/2020 4:20 AM CDT) LACTIC ACID 0.7 <=2.0 mmol/L 12/27/2020 4:49 AM CDT [facility] Blood Venipuncture / Unknown 12/27/2020 4:20 AM CDT 12/27/2020 4:28 AM CDT Araceli Santo MD CHEMISTRY ORDERABL ES Performing Organization Address [facility] Co de Phone Number [facility] [employer] [facility]# [id number] [address] [place] [address] * (ABNORMAL) POC GLUCOSE (12/27/2020 4:02 AM CDT) GLUCOSE POC 122(H) 74 - 99 mg/dL 12/27/2020 4:02 AM CDT [facility] COMMENT, GLU POC Notified RN/MD 12/27/2020 4:02 AM CDT [facility] COMMENT 2, GLU POC Repeated Glucose 12/27/2020 4:02 AM CDT [facility] FELLOW NAME POC AMINA FLOOD 12/27/2020 4:02 AM CDT [facility] Blood, whole 12/27/2020 4:02 AM CDT 12/27/2020 4:27 AM CDT Araceli Santo MD POINT OF CARE TEST ING Performing Organization Address [facility]/ZIP Co de Phone Number [facility] [employer] [facility]# [id number] [address] [place] [address] * (ABNORMAL) POC GLUCOSE (12/27/2020 3:32 AM CDT) [facility] GLUCOSE POC 62(L) 74 - 99 mg/dL 12/27/2020 3:32 AM CDT [employer] [facility] - [facility] COMMENT, GLU POC Notified RN/MD 12/27/2020 3:32 AM CDT [email or web address] [facility] - [facility] COMMENT 2, GLU POC Repeated Glucose 12/27/2020 3:32 AM CDT [email or web address] [facility] - [facility] FELLOW NAME POC KENIA QUIROZ 12/27/2020 3:32 AM CDT [email or web address] [facility]ORATORY SERVICES [facility] Blood, whole 12/27/2020 3:32 AM CDT 12/27/2020 3:54 AM CDT Araceli Santo MD POINT OF CARE TEST ING [facility] [employer] [employer] [facility]# [id number] [address] [place] [address] * (ABNORMAL) CBC WITH DIFFERENTIAL (12/27/2020 3:05 AM CDT) [facility] WBC 12.9(H) 4.0 - 9.8 K/uL 12/27/2020 3:26 AM CDT [email or web address] LABORATORY SERVICES [facility] RBC 4.00 3.90 - 4.90 M/uL 12/27/2020 3:26 AM CDT [email or web address] LABORATORY SERVICES [facility] HEMOGLOBIN 12.4 11.8 - 14.8 g/dL 12/27/2020 3:26 AM CDT [email or web address] LABORATORY SERVICES [facility] HEMATOCRIT 35.0(L) 35.5 - 44.0 % 12/27/2020 3:26 AM CDT [email or web address] LABORATORY SERVICES [facility] MCV 87.5 82.0 - 99.0 fL 12/27/2020 3:26 AM CDT [email or web address] LABORATORY SERVICES [facility] MCH 31.0 27.2 - 32.6 pg 12/27/2020 3:26 AM CDT [email or web address] LABORATORY SERVICES - . [facility] MCHC 35.4 31.5 - 35.5 g/dL 12/27/2020 3:26 AM CDT [email or web address] [facility]ATORY SERVICES - [facility] RDW 15.1(H) 11.5 - 14.5 % 12/27/2020 3:26 AM CDT [email or web address] LABORATORY SERVICES - . [facility] RDW-STDEV 48.3 37.1 - 48.7 fL 12/27/2020 3:26 AM CDT [email or web address] LABORATORY SERVICES - [facility] PLATELETS 365(H) 140 - 350 K/uL 12/27/2020 3:26 AM CDT [email or web address] LABORATORY SERVICES - . [facility] MPV 9.9 9.3 - 12.4 fL 12/27/2020 3:26 AM CDT [email or web address] LABORATORY SERVICES - . [facility] NEUTROPHILS 72 % 12/27/2020 3:26 AM CDT [email or web address] [facility]ORATORY SERVICES - [facility] LYMPHOCYTES 22 % 12/27/2020 3:26 AM CDT [email or web address] [facility]ORATORY SERVICES - [facility] MONOCYTES 4 % 12/27/2020 3:26 AM CDT [email or web address] [facility]ATORY SERVICES - [facility] EOSINOPHILS 1 % 12/27/2020 3:26 AM CDT [email or web address] LABORATORY SERVICES - [facility] BASOPHILS 0 % 12/27/2020 3:26 AM CDT [email or web address] LABORATORY SERVICES - . [facility] IMMATURE GRANULOCYTES 1 % 12/27/2020 3:26 AM CDT [email or web address] LABORATORY SERVICES - . [facility] Comment:IG (Immature Granulo cyte) count includes Metamyelocytes, Myelocytes, and Promyelocytes NEUTROPHIL ABSOLUTE 9.30(H) 1.90 - 7.00 K/uL 12/27/2020 3:26 AM CDT [email or web address] LABORATORY SERVICES - [facility] LYMPHOCYTE ABSOLUTE 2.80 0.70 - 4.50 K/uL 12/27/2020 3:26 AM CDT [email or web address] LABORATORY SERVICES - [facility] MONOCYTE ABSOLUTE 0.54 0.10 - 1.30 K/uL 12/27/2020 3:26 AM CDT [email or web address] LABORATORY SERVICES - [facility] EOSINOPHIL ABSOLUTE 0.12 0.00 - 0.70 K/uL 12/27/2020 3:26 AM CDT [email or web address] LABORATORY SERVICES - [facility] BASOPHILS ABSOLUTE 0.05 0.00 - 0.20 K/uL 12/27/2020 3:26 AM CDT [facility] LABORATORY SERVICES - [facility] IMMATURE GRANULOCYTES ABSOLUTE 0.09(H) 0.00 - 0.03 K/uL 12/27/2020 3:26 AM CDT [facility] LABORATORY SERVICES - [facility] Blood Venipuncture / Unknown 12/27/2020 3:05 AM CDT 12/27/2020 3:13 AM CDT Araceli Santo MD HEMATOLOGY ORDERAB LES Performing Organization Address City/[facility]/ZIP Co de Phone Number [facility] [employer] [facility] [id number] [address] [place] [address] * POC GLUCOSE (12/27/2020 2:35 AM CDT) GLUCOSE POC 86 74 - 99 mg/dL 12/27/2020 2:35 AM CDT [facility] LABORATORY SERVICES [facility] HOSPITAL FELLOW NAME AMINA LOPEZ 12/27/2020 2:35 AM CDT [facility] LABORATORY SERVICES - [facility] Blood, whole 12/27/2020 2:35 AM CDT 12/27/2020 2:48 AM CDT Araceli Santo MD POINT OF CARE TEST ING Performing Organization Address [facility]/ZIP Co de Phone Number [facility] [employer] [facility]# [id number] [address] [place] [address] * (ABNORMAL) POC GLUCOSE (12/27/2020 12:42 AM CDT) GLUCOSE POC 102(H) 74 - 99 mg/dL 12/27/2020 12:42 AM CDT [facility] LABORATORY SERVICES - [facility] HOSPITAL FELLOW NAME AMINA LOPEZ 12/27/2020 12:42 AM CDT [facility] LABORATORY SERVICES - [facility] Blood, whole 12/27/2020 12:4 2 AM CDT 12/27/2020 2:00 AM CDT Araceli Santo MD POINT OF CARE TEST ING Performing Organization Address [facility] Co de Phone Number [facility]# [id number] [address] [place] [address] * 2019 NOVEL CORONAVIRUS (COVID-19) PCR DETECTION (12/26/2020 11:09 PM CDT) [facility] COVID-19 PCR NOT DETECTED Not Detected 12/28/19 12:10 AM CDT [facility] [employer] [facility] 12/27/2020 12:10 AM CDT [facility] [employer] [facility] Upper Respiratory ENTIRE NASOPHARYNX / Unknown Collection / Unknown 12/26/2020 11:09 PM CDT 12/26/2020 11:13 PM CDT Narrative [facility] [employer] [facility] - 12/27/2020 12:10 AM CDT This test [...] - GENE RAL ORDERABLES Performing Organization Address [facility]/ZIP Co de Phone Number [facility]# [id number] [address] [place] [address] * (ABNORMAL) URINALYSIS WITH REFLEX MICROSCOPIC (12/26/2020 10:06 PM CDT) Pathologist [facility] COLOR UA Yellow Pale to Dark Yellow 12/26/2020 10:31 PM CDT [facility] [employer] [facility] CLARITY UA Clear Clear 12/26/2020 10:31 PM CDT [facility] LABORATORY [facility] SPECIFIC GRAVITY UA 1.025 1.003 - 1.035 12/26/2020 10:31 PM CDT [facility] LABORATORY SERVICES - [facility] PH UA 5.0 5.0 - 8.0 12/26/2020 10:31 PM CDT [facility] LABORATORY SERVICES - [facility] LEUKOCYTE ESTERASE UA Negative Negative 12/26/2020 10:31 PM CDT [facility] LABORATORY SERVICES - [facility] NITRITE UA Negative Negative 12/26/2020 10:31 PM CDT [facility] LABORATORY SERVICES - [facility] PROTEIN UA Negative Negative 12/26/2020 10:31 PM CDT [facility] LABORATORY SERVICES - . [facility] GLUCOSE UA 3+(A) Negative 12/26/2020 10:31 PM CDT [facility] LABORATORY SERVICES - [facility] KETONES UA 1+(A) Negative 12/26/2020 10:31 PM CDT [facility] LABORATORY SERVICES - [facility] UROBILINOGEN UA Normal <2.0 mg/dL 10:31 PM CDT [facility] LABORATORY SERVICES - [facility] BILIRUBIN UA Negative Negative 12/26/2020 10:31 PM CDT [facility] LABORATORY SERVICES - [facility] BLOOD UA Negative Negative 12/26/2020 10:31 PM CDT [facility] LABORATORY SERVICES - [facility] Urine URINE SPECIMEN OBTAINED BY CLEAN CATCH PROCEDURE / Unknown Collection / Unknown 12/26/2020 10:06 PM CDT 12/26/2020 10:13 PM CDT Last Olsen DO URINE ORDERABLES [facility] LABORATORY SERVICES [facility]# [id number] [address] [address] * CT CHEST ABDOMEN PELVIS W CONT (12/26/2020 10:02 PM CDT) Anatomical Region Laterality Modality Chest Computed Tomogra phy 12/26/2020 10:0 3 PM CDT Impressions 12/26/2020 10:30 PM CDT IMPRESSION: ?? 1. ??Mild edema adjacent to the pancreatic tail, compatible with given history of acute pancreatitis. 2. Punctate nonobstructing right renal stone. 3. Clear lungs. [facility] Narrative 12/26/2020 10:[address] [...] BONES: No concerning focal lesion. Procedure Note Ligia Patel MD - 12/26/2020 CT CHEST, ABDOMEN [...] Clear lungs. DICTATION LOCATION: Location 1 - [facility] Last Olsen DO CT ORDERABLES * EKG 12-LEAD (12/26/2020 9:42 PM CDT) 12/26/2020 9:42 PM CDT Narrative INTERFACE SYSTEM - 12/27/2020 7:59 AM CDT ? Stationary ECG Study ? [facility] ? Test Date: ?12/26/2020 9:42 PM Pat Name: ? CASANDRA FEDDER ?Department: ?? 37 ?Room: ? 490F Gender: ? 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 Requested By: LAST MARSHALL Order Number: [id number] ?Reading MD: ?? Gigi Maza ? Measurements Intervals ?[place] ? Rate: ? 107 ?P: ?63 ID: ? 155 ?QRS: ?60 QRSD: ? 86 ? T: ?0 QT: ? 338 ? QTc: ?451 ? Interpretive Statements ? 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: win : 1975 Requested By: LAST MARSHALL Order Number: [id number] Reading MD: Gigi Maza Measurements Intervals [place] Rate: 107 P: 63 ID: 155 QRS: 60 QRSD: 86 T: 0 QT: 338 QTc: 451 Interpretive Statements Sinus tachycardia Left atrial enlargement Nonspecific ST segment and T wave abnormalities Electronically Signed On 12-27-2020 7:59:42 CDT by Gigi Maza Last Olsen DO ECG ORDERABLES INTERFACE SYSTEM Refer to clinic/hospital department * (ABNORMAL) KETONES/BETA HYDROXYBUTYRATE (12/26/2020 8:16 PM CDT) BETA HYDROXYBUTYRATE 1.6(H) <0.4 mmol/L 12/27/2020 12:34 AM CDT [facility] [employer] [facility] Comment:Cleared of chylomicr ons. Blood Venipuncture / Unknown 12/26/2020 8:16 PM CDT 12/26/2020 8:29 PM CDT Araceli Santo MD CHEMISTRY ORDERABL ES Performing Organization Address [facility] Co de Phone Number [facility] [employer] [facility] CLIA# [id number] [address] [address] * TROPONIN BASELINE, 5TH GEN (12/26/2020 8:16 PM CDT) TROPONIN T, BASELINE 5TH GEN <6 <=10 ng/L 12/26/2020 10:06 PM CDT [facility] [employer] [facility] Blood Venipuncture / Unknown 12/26/2020 8:16 PM CDT 12/26/2020 8:29 PM CDT Narrative [facility] LABORATORY [facility] - 12/26/2020 10:06 PM CDT Troponin Undetectable Last Olsen DO CHEMISTRY ORDERABLE S Performing Organization Address [facility]/ZIP Co de Phone Number [facility] [employer] [facility] CLIA# [id number] [address] [place] [address] * (ABNORMAL) TRIGLYCERIDE (12/26/2020 8:16 PM CDT) TRIGLYCERIDE 3,537(H) <150 mg/dL 12/26/2020 10:08 PM CDT [facility] Blood Venipuncture / Unknown 12/26/2020 8:16 PM CDT 12/26/2020 8:29 PM CDT Narrative [facility] LABORATORY [facility] - 12/26/2020 10:08 PM CDT TRIGLYCERIDES ? mg/dL Normal ?< 150 Borderline High ?150 - 199 High ? 200 - 499 Very High ? >= 500 Based on AHA/NCEP Guidelines. Last Olsen DO CHEMISTRY ORDERABLE S Performing Organization Address City/[facility] Co de Phone Number [facility]# [id number] [address] [place] [address] * MANUAL DIFFERENTIAL (12/26/2020 8:16 PM CDT) [facility] PLATELET EST. Consistent w Count 12/26/2020 9:16 PM CDT [facility] LABORATORY [facility] RBC MORPHOLOGY Normal 12/26/2020 9:16 PM CDT [facility] LABORATORY [facility] Blood Venipuncture / Unknown 12/26/2020 8:16 PM CDT 12/26/2020 8:29 PM CDT Last Olsen DO HEMATOLOGY ORDERABL ES COM Performing Organization Address [facility] Co de Phone Number [facility]# [id number] [address] [place] [address] * (ABNORMAL) LIPASE (12/26/2020 8:16 PM CDT) [facility] LIPASE 62(H) 13 - 60 U/L 12/26/2020 10:07 PM CDT [facility] LABORATORY [facility] Blood Venipuncture / Unknown 12/26/2020 8:16 PM CDT 12/26/2020 8:29 PM CDT Last Olsen DO CHEMISTRY ORDERABLE S [facility] LABORATORY SERVICES - [facility]# [id number] [address] [place] [address] * (ABNORMAL) COMPREHENSIVE METABOLIC PANEL (12/26/2020 8:16 PM CDT) SODIUM 136 136 - 145 mmol/L 12/26/2020 10:24 PM CDT [employer] LABORATORY SERVICES - [facility] POTASSIUM 4.1 3.5 - 5.0 mmol/L 12/26/2020 10:24 PM CDT [facility]ORATORY SERVICES - [facility] Comment:Slightly hemolyzed. Result may be falsely elevated. CHLORIDE 98 98 - 107 mmol/L 12/26/2020 10:24 PM CDT [facility] LABORATORY SERVICES - [facility] CO2 18(L) 22 - 29 mmol/L 12/26/2020 10:24 PM CDT [facility] LABORATORY SERVICES [facility] CALCIUM 9.7 8.6 - 10.2 mg/dL 12/26/2020 10:24 PM CDT [facility] LABORATORY SERVICES - [facility] BUN 7 6 - 20 mg/dL 12/26/2020 10:24 PM CDT [facility] LABORATORY SERVICES - . [facility] CREATININE 0.41(L) 0.51 - 0.95 mg/dL 12/26/2020 10:24 PM CDT [facility] LABORATORY SERVICES - . [facility] GLUCOSE 98 74 - 99 mg/dL 12/26/2020 10:24 PM CDT [facility] LABORATORY SERVICES [facility] TOTAL PROTEIN 7.5 6.7 - 8.6 g/dL 12/26/2020 10:24 PM CDT [facility]ORATORY SERVICES - [facility] ALBUMIN 4.4 3.5 - 5.2 g/dL 12/26/2020 10:24 PM CDT [facility]ATORY [facility] - [facility] BILIRUBIN TOTAL 0.4 0.3 - 1.2 mg/dL 12/26/2020 10:24 PM CDT [facility] LABORATORY SERVICES - . [facility] ALKALINE PHOSPHATASE 91 35 - 104 U/L 12/26/2020 10:24 PM CDT [facility]ATORY [facility] - [facility] AST 17 <33 U/L 12/26/2020 10:24 PM CDT [facility] LABORATORY [facility] Comment:Hemolysis present. R esult may be falsely elevated. ALT 13 <34 U/L 12/26/2020 10:24 PM CDT [facility] GFR >60 mL/min/1.7 3 sq meter 12/26/2020 10:24 PM CDT [facility] LABORATORY [facility] Comment: eGFR has not been validated for [...] 3 sq meter 12/26/2020 10:24 PM CDT [facility] LABORATORY [facility] ANION GAP 20(H) 8 - 16 mmol/L 12/26/2020 10:24 PM CDT [facility] Blood Venipuncture / Unknown 12/26/2020 8:16 PM CDT 12/26/2020 8:29 PM CDT Narrative [facility] LABORATORY [facility] - 12/26/2020 10:24 PM CDT Grossly lipemic. Samples containing indocyanine green cause interferences on Total and/or Direct Bilirubin and must not be measured. Last Olsen DO CHEMISTRY ORDERABLE S [facility] [employer] [facility] [id number] [address] [id number] * (ABNORMAL) CBC WITH DIFFERENTIAL (12/26/2020 8:16 PM CDT) WBC 17.9(H) 4.0 - 9.8 K/uL 12/26/2020 9:13 PM CDT [facility] LABORATORY SERVICES - [facility] RBC 5.01(H) 3.90 - 4.90 M/uL 12/26/2020 9:13 PM CDT [email or web address] LABORATORY SERVICES - [facility] HEMOGLOBIN 15.0(H) 11.8 - 14.8 g/dL 12/26/2020 9:13 PM CDT [email or web address] LABORATORY SERVICES - [facility] Comment:Results corrected fo r elevated lipids. HEMATOCRIT 44.0 35.5 - 44.0 % 12/26/2020 9:13 PM CDT [email or web address] LABORATORY SERVICES - [facility] MCV 87.8 82.0 - 99.0 fL 12/26/2020 9:13 PM CDT [email or web address] LABORATORY SERVICES - [facility] MCH 29.9 27.2 - 32.6 pg 12/26/2020 9:13 PM CDT [email or web address] LABORATORY SERVICES - [facility] MCHC 34.1 31.5 - 35.5 g/dL 12/26/2020 9:13 PM CDT [email or web address] LABORATORY SERVICES - [facility] RDW 14.3 11.5 - 14.5 % 12/26/2020 9:13 PM CDT [email or web address] LABORATORY SERVICES - [facility] RDW-STDEV 45.6 37.1 - 48.7 fL 12/26/2020 9:13 PM CDT [email or web address] LABORATORY SERVICES - [facility] PLATELETS 412(H) 140 - 350 K/uL 12/26/2020 9:13 PM CDT [email or web address] LABORATORY SERVICES - [facility] MPV 8.9(L) 9.3 - 12.4 fL 12/26/2020 9:13 PM CDT [email or web address] LABORATORY SERVICES - [facility] NEUTROPHILS 79 % 12/26/2020 9:13 PM CDT [email or web address] LABORATORY SERVICES - [facility] LYMPHOCYTES 15 % 12/26/2020 9:13 PM CDT [email or web address] LABORATORY SERVICES - [facility] MONOCYTES 4 % 12/26/2020 9:13 PM CDT [email or web address] LABORATORY SERVICES - [facility] EOSINOPHILS 1 % 12/26/2020 9:13 PM CDT [email or web address] LABORATORY SERVICES - [facility] BASOPHILS 0 % 12/26/2020 9:13 PM CDT [email or web address] LABORATORY SERVICES - . [facility] IMMATURE GRANULOCYTES 1 % 12/26/2020 9:13 PM CDT [email or web address] LABORATORY SERVICES - . [facility] Comment:IG (Immature Granulo cyte) count includes Metamyelocytes, Myelocytes, and Promyelocytes NEUTROPHIL ABSOLUTE 14.17(H) 1.90 - 7.00 K/uL 12/26/2020 9:13 PM CDT [facility] LABORATORY SERVICES - . [facility] LYMPHOCYTE ABSOLUTE 2.67 0.70 - 4.50 K/uL 12/26/2020 9:13 PM CDT [facility] LABORATORY SERVICES - . [facility] MONOCYTE ABSOLUTE 0.76 0.10 - 1.30 K/uL 12/26/2020 9:13 PM CDT [facility] LABORATORY SERVICES - . [facility] EOSINOPHIL ABSOLUTE 0.14 0.00 - 0.70 K/uL 12/26/2020 9:13 PM CDT [facility] LABORATORY SERVICES - [facility] BASOPHILS ABSOLUTE 0.08 0.00 - 0.20 K/uL 12/26/2020 9:13 PM CDT [facility] LABORATORY SERVICES - . [facility] IMMATURE GRANULOCYTES ABSOLUTE 0.11(H) 0.00 - 0.03 K/uL 12/26/2020 9:13 PM CDT [facility] LABORATORY SERVICES - [facility] Blood Venipuncture / Unknown 12/26/2020 8:16 PM CDT 12/26/2020 8:29 PM CDT Last Olsen DO HEMATOLOGY ORDERABL ES [facility] LABORATORY [facility]# [id number] [address] [place] [address] documented in this encounter Visit Diagnoses Diagnosis [...] 12/26/2020 10:52 PM CDT 100 mcg Fish Oil-[place]-3 Fatty Acids 360-1,200 mg capsule 2 Capsule [...] 0859 (Given - Provider: BLAISE Larsen) Fish Oil-[place]-3 Fatty Acids 360-1,200 mg capsule 2 Capsule [...] Provider: Vicki Maradiaga RN)2027 (Given - Provider: Phyllis Madera RN) 0835 (Given - Provider: BLAISE Alejandra)2054 (Given - Provider: Genoveva Smyth RN) 0853 (Given - Provider: BLAISE Larsen) traZODone (DESYREL) tablet 100 mg 100 [...] Vicki Maradiaga RN)1000 (Rate Verify - Provider: Vikci Maradiaga RN)1112 (Rate Verify - Provider: Vicki Maradiaga RN)1207 (Rate Verify - Provider: Vicik Maradiaga RN)1400 (Stopped - Provider: Puja Courtney [...] Smyth RN)2207 (Rate Change - Provider: Genoveva Smyht RN) 0033 (Rate Change - Provider: Genoveva [...] admin instructions), Routine 0301 (Given - Provider: hPyllis Madera RN)0809 (Given - Provider: Vicki Maradiaga [...] Vicki Maradiaga RN)1115 (Given - Provider: Vicki Mardaiaga RN)1449 (Given - Provider: Vicki Maradiaga RN)1754 [...] documented as of this encounter Care Teams Contact Lens Technician Relationship Specialty Start Date End Date Guerrero Middleton PA-C PCP - General Physician Edgerman 02/13/18 documented as of this encounter
--- OUTSIDE RECORDS SUMMARY | 2024-05-03 21:51 | XMS_ITS | Encounter Summary ---
Author Organization [facility] Address [address] [facility] [address] Orozco: Epic Prelude ADT [place] [address] Care Team Providers Care Stud Dairy Cattle Farmer Name Role Phone Guerrero Middleton PA-C [...] How often do you attend [facility] or caodaism services? Never 08/21/2018 Do [...] [facility] [address] [place] [address] Malrys Mayer MD [address] [place] [address] documented as of this encounter Visit Diagnoses Not on filedocumented in this encounter Additional Health Concerns Assessment Noted Time PHQ-9 Depression Total Score: 1 08/11/19 21 6:30 PM CDT documented as of this encounter Care Teams Stud Dairy Cattle Farmer Relationship Specialty Start Date End Date Guerrero Middleton PA-C PCP - General Physician Drawing Tender 02/13/18 documented as of this encounter
--- OUTSIDE RECORDS SUMMARY | 2024-05-03 21:51 | XMS_ITS | Encounter Summary ---
Author Organization [facility] Address [address] Orozco: Epic Prelude ADT [place] [address] Care Team Providers Care Production Material Handler Name Role Phone Guerrero Middleton PA-C [...] How often do you attend [facility] or quaker services? Never 08/21/2018 Do you [...] [facility] [place] [address] Marlys Mayer MD [address] [place] [address] documented as of this encounter Visit Diagnoses Not on filedocumented in this encounter Additional Health Concerns Assessment Noted Time PHQ-9 Depression Total Score: 1 08/11/19 21 6:30 PM CDT documented as of this encounter Care Teams Production Material Handler Relationship Specialty Start Date End Date Guerrero Middleton PA-C PCP - General Physician Production Finisher 02/13/18 documented as of this encounter
--- OUTSIDE RECORDS SUMMARY | 2024-05-03 21:51 | XMS_ITS | Encounter Summary ---
Author Organization [facility] Address [address] Orozco: Epic Prelude ADT [place] [address] Care Team Providers Care Research Associate Name Role Phone Guerrero Middleton PA-C [...] week 08/21/2018 How often do you attend [facility] or alevism services? Never 08/21/2018 Do you [...] [facility] [address] [address] [address] [place] [address] Marlys Mayer MD [address] [place] [address] documented as of this encounter Visit Diagnoses Not on filedocumented in this encounter Additional Health Concerns Assessment Noted Time PHQ-9 Depression Total Score: 1 08/11/19 21 6:30 PM CDT documented as of this encounter Care Teams Research Associate Relationship Specialty Start Date End Date Guerrero Middleton PA-C PCP - General Physician Press Machine Operator 02/13/18 documented as of this encounter
--- OUTSIDE RECORDS SUMMARY | 2024-05-03 21:52 | XMS_ITS | Encounter Summary ---
Author Organization [facility] Address [address] [place] [address] Care Team Providers Care Knuckler Name Role Phone Guerrero Middleton PA-C Primary Care Provide r Reason for Referral * Eval and Treat (Routine) - Closed Specialty Diagnoses / Procedures Referred By Tequila t Referred To Contact Diagnoses Familial hypertriglyceridemia Prudence Gates MD [address] [place] [address] Referral ID Status Reason Start Date Expiration Date Visits Re quested Visits Authorized [id number] Closed 09/15/2020 09/15/2021 1 1 Reason for Visit * Reason Comments Diabetes type 2 Encounter Details Date Type Department Care Team (Late st Contact Info) Description 09/15/2020 9:45 AM CDT Office Visit [facility] Endocrinology [address] [place] [address] Prudence Gates MD [address] [place] [address] Hand trauma, right, initial encounter (Primary Dx); [...] mg. She went to the [facility] and was told to stop the [...] for Itching. 16 Tablet 0 ??? Fish Oil-[place]-3 Fatty Acids 360-1,200 mg Capsule Take 2 [...] of left power flow port 05/11/2019 ??? [place] ESOPHAGOGASTRODUODENOSCOPY TRANSORAL DIAGNOSTIC N/A 03/08/2018 ESOPHAGOGASTRODUODENOSCOPY performed by Ceasar Vega MD at [facility] GI LAB Family History Problem [...] 04:56 AM Lab Results Component Value Date/Time [id number] 51 08/10/2011 07:21 AM [id number] 6 08/10/2011 07:21 AM [id number] 57 08/10/2011 07:21 AM Lab Results Component Value Date/Time WBC 9.0 09/15/2020 01:30 PM HGB 13.1 09/15/2020 01:30 PM HCT 40.2 09/15/2020 01:30 PM PLT 264 09/15/2020 01:30 PM MCV 89.5 09/15/2020 01:30 PM No results found for: MICROALBUMIN, MALBUR, ONWZHI25, MICRCREATR, MICRALBURINE Lab Results Component Value Date/Time TSH 1.44 06/08/2020 09:49 AM ASSESSMENT: Encounter Diagnoses Name Primary? Uncontrolled type 2 diabetes mellitus with insulin therapy ??? Hand trauma, right, initial encounter Yes ??? Familial hypertriglyceridemia ??? Acquired hypothyroidism ??? Depression with anxiety PLAN: Orders Placed This Encounter ??? XR HAND 3+ VW RIGHT ??? HEMOGLOBIN A1C ??? *[facility] Smoking Cessation ? ? [place] CONTINUOUS GLUCOSE MONITORING ANALYSIS I&R ??? levothyroxine [...] 3+ VW RIGHT ??? HEMOGLOBIN A1C ??? *[facility] Smoking Cessation ? ? [place] CONTINUOUS GLUCOSE MONITORING ANALYSIS I&R ??? levothyroxine [...] [facility] Heart and Vascular - [facility] [address] [place] [address] Marlys Mayer MD [address] [place] [address] Scheduled Referrals Name Type Priority Associated Diagnoses [...] radiographs in 7-10 days. DICTATION LOCATION: Location [address] [place] [address] Narrative 09/15/2020 2:11 PM CDT XR HAND [...] follow-up radiographs in 7-10 days. DICTATION LOCATION: [address] Prudence Gates MD DIAGNOSTIC ENMANUEL Serrano [...] documented as of this encounter Care Teams Knuckler Relationship Specialty Start Date End Date Guerrero Middleton PA-C PCP - General Physician Component Engineer 02/13/18 documented as of this encounter
--- OUTSIDE RECORDS SUMMARY | 2024-05-03 21:52 | XMS_ITS | Encounter Summary ---
Author Organization [facility] Address [address] [place] [address] Care Team Providers Care Snow Fence Erector Name Role Phone Guerrero Middleton PA-C Primary Care Provide r Reason for Visit * Auth/Cert Specialty Diagnoses / Procedures Referred By Tequila t Referred To Contact Emergency Medicine [facility] Emergency Dept [address] [place] [address] Referral ID Status Reason Start Date Expiration Date Visits Re quested Visits Authorized [id number] 1 1 Encounter Details Date Type Department Care Team (Latest Contact Info) Description 08/10/2020 9:30 AM CDT - 08/10/2020 11:59 PM CDT Hospital Encounter [facility] Donor Services [facility] [address] [place] [address] Alize Arteaga MD NO ADDRESS [...] How often do you attend chur or faith services? Never 08/21/2018 Do you [...] the procedure. ?? Alize Arteaga MD, PhD Management Trainee Marketing, therapeutic apheresis service [phone] ?? Procedure??notes:?L and??R bard ports??used for procedure. ??Patient tolerated procedure well.?? documented in this encounter Plan of Treatment Upcoming Encounters Date Type Department Care Team (Late st Contact Info) Description 09/14/2024 3:00 PM CDT Office Visit [facility] [address] [place] [address] Marlys Mayer MD [address] [place] [address] documented as of this encounter Procedures Procedure Name Priority Date/Time Associated Diagnosis Comments TRIGLYCERIDE Routine 08/10/2020 9:41 AM CDT Hypertriglyceridemia documented in this encounter Results * (ABNORMAL) TRIGLYCERIDE (08/10/2020 9:41 AM CDT) TRIGLYCERIDE >4,425(H) <150 mg/dL 08/10/2020 10:43 AM CDT [facility] Blood Venipuncture / Unknown 08/10/2020 9:41 AM CDT 08/10/2020 9:43 AM CDT Narrative [facility] - 08/10/2020 10:43 AM CDT TRIGLYCERIDES ? mg/dL Normal ?< 150 Borderline High ?150 - 199 High ? 200 - 499 Very High ? >= 500 Based on AHA/NCEP Guidelines. Alize Arteaga MD CHEMISTRY ORDER OSVALDO [facility] [employer] [facility] CLIA# [id number] [address] [place] [address] documented in this encounter Visit Diagnoses Diagnosis [...] documented as of this encounter Care Teams Snow Fence Erector Relationship Specialty Start Date End Date Guerrero Middleton PA-C PCP - General Physician Door Repairer Bus 02/13/18 documented as of this encounter
--- OUTSIDE RECORDS SUMMARY | 2024-05-03 21:52 | XMS_ITS | Encounter Summary ---
Author Organization [facility] Address [address] [place] [address] Care Team Providers Care Agricultural Extension Agent Name Role Phone Guerrero Middleton PA-C Primary Care Provide r Reason for Visit * Reason Comments Medication Refill Encounter Details Date Type Department Care Team (Late st Contact Info) Description 07/06/[address] [facility] Endocrinology [address] [place] [address] Prudence Gates MD [address] [place] [address] Social History Tobacco Use Types Packs/Day Years [...] COVID-19? No / Unsure 06/08/2020 9:32 AM INKING MACHINE TENDER documented as of this encounter Miscellaneous Notes * Telephone Encounter - Sylvia France - 07/06/2020 8:14 AM CST Trisha:05/04/2020 Nov:09/15/2020 NG MACHINE TENDER documented in this encounter Plan of Treatment Upcoming Encounters Date Type Department Care Team (Late st Contact Info) Description 09/14/2024 3:00 PM CDT Office Visit [facility] [address] [place] [address] Marlys Mayer MD [address] [place] [address] documented as of this encounter Visit Diagnoses Not on filedocumented in this encounter Care Teams Agricultural Extension Agent Relationship Specialty Start Date End Date Guerrero Middleton PA-C PCP - General Physician Supervisor Mattress And Boxsprings 02/13/18 documented as of this encounter
--- OUTSIDE RECORDS SUMMARY | 2024-05-03 21:52 | XMS_ITS | Encounter Summary ---
Author Organization [facility] Address [address] Orozco: Epic Prelude ADT [place] [address] Care Team Providers Care Director Speech Language Name Role Phone Guerrero Middleton PA-C Primary [...] you attend [facility] or bahai services? Never 08/21/2018 Do [...] [facility] [address] [place] [address] Marlys Mayer MD [address] [place] [address] documented as of this encounter Visit Diagnoses Not on filedocumented in this encounter Additional Health Concerns Assessment Noted Time PHQ-9 Depression Total Score: 1 08/11/19 21 6:30 PM CDT documented as of this encounter Care Teams Director Speech Language Relationship Specialty Start Date End Date Guerrero Middleton PA-C PCP - General Physician Banking Assistant 02/13/18 documented as of this encounter
--- OUTSIDE RECORDS SUMMARY | 2024-05-03 21:52 | XMS_ITS | Encounter Summary ---
Author Organization [facility] Address [address] Orozco: Epic Prelude ADT [place] [address] Care Team Providers Care Die Casting Machine Setter Name Role Phone Guerrero Middleton PA-C [...] you attend [facility] or hoahaoism services? Never 08/21/2018 Do [...] [facility] - [facility] [address] [place] [address] Marlys Mayer MD [address] [place] [address] documented as of this encounter Visit Diagnoses Not on filedocumented in this encounter Additional Health Concerns Assessment Noted Time PHQ-9 Depression Total Score: 1 08/11/19 6:30 PM CDT documented as of this encounter Care Teams Die Casting Machine Setter Relationship Specialty Start Date End Date Guerrero Middleton PA-C PCP - General Physician Hydraulic Press Tender 02/13/18 documented as of this encounter
--- OUTSIDE RECORDS SUMMARY | 2024-05-03 21:52 | XMS_ITS | Encounter Summary ---
Author Organization [facility] Address [address] [place] [address] Care Team Providers Care Forestry Worker Name Role Phone Guerrero Middleton PA-C Primary Care Provide r Reason for Visit * Reason Comments Medication Refill Encounter Details Date Type Department Care Team (Late st Contact Info) Description 12/06/2020 Refill [facility] Endocrinology [address] [place] [address] Prudence Gates MD [address] [place] [address] Social History Tobacco Use Types Packs/Day Years [...] [facility] [address] [place] [address] Marlys Mayer MD [address] [place] [address] documented as of this encounter Visit Diagnoses Not on filedocumented in this encounter Additional Health Concerns Assessment Noted Time PHQ-9 Depression Total Score: 1 08/11/19 21 6:30 PM CDT documented as of this encounter Care Teams Forestry Worker Relationship Specialty Start Date End Date Guerrero Middleton PA-C PCP - General Physician Pension Manager 02/13/18 documented as of this encounter
--- OUTSIDE RECORDS SUMMARY | 2024-05-03 21:52 | XMS_ITS | Encounter Summary ---
Author Organization [facility] Address [address] [place] [address] Care Team Providers Care Chargeback Specialist Name Role Phone Guerrero Middleton PA-C Primary Care Provide r Encounter Details Date Type Department Care Team (Latest Contact Info) Description 10/12/2020 9:23 AM CDT - 10/12/2020 11:59 PM CDT Hospital Encounter [facility] Donor Services [address] [phone] Alize Arteaga MD NO ADDRESS ON FILE [...] the procedure. ?? Alize Arteaga MD, PhD Lens Grinder Apprentice, therapeutic apheresis service [phone] ?? Procedure??notes:?L and??R bard ports??used for procedure. [...] and Vascular - [place] [address] [place] [address] Marlys Mayer MD [address] [place] [address] documented as of this encounter Procedures Procedure Name Priority Date/Time Associated Diagnosis Comments CBC WITHOUT DIFFERENTIAL Routine 10/12/2020 9:45 AM CDT Hypertriglyceridemi a TRIGLYCERIDE Routine 10/12/2020 9:45 AM CDT Hypertriglyceridemi a documented in this encounter Results * (ABNORMAL) CBC WITHOUT DIFFERENTIAL (10/12/2020 9:45 AM CDT) WBC 10.0(H) 4.0 - 9.8 K/uL 10/12/2020 10:35 AM CDT [employer] [facility] RBC 4.57 3.90 - 4.90 M/uL 10/12/2020 10:35 AM CDT [employer] [facility] HEMOGLOBIN 14.2 11.8 - 14.8 g/dL 10/12/2020 10:35 AM CDT [facility] Comment:Results corrected fo r elevated lipids. HEMATOCRIT 40.0 35.5 - 44.0 % 10/12/2020 10:35 AM CDT [employer] [facility] MCV 87.5 82.0 - 99.0 fL 10/12/2020 10:35 AM CDT [employer] [facility] MCH 31.1 27.2 - 32.6 pg 10/12/2020 10:35 AM CDT [facility] MCHC 35.5 31.5 - 35.5 g/dL 10/12/2020 10:35 AM CDT [facility] PLATELETS 310 140 - 350 K/uL 10/12/2020 10:35 AM CDT [facility] MPV 9.3 9.3 - 12.4 fL 10/12/2020 10:35 AM CDT [facility] RDW 14.3 11.5 - 14.5 % 10/12/2020 10:35 AM CDT [facility] RDW-STDEV 46.1 37.1 - 48.7 fL 10/12/2020 10:35 AM CDT [facility] Blood Venipuncture / Unknown 10/12/2020 9:45 AM CDT 10/12/2020 9:45 AM CDT Alize Arteaga MD HEMATOLOGY ORDE RABJANES Performing Organization Address [facility]/ZIP Co de Phone Number [facility] [employer] [facility] CLIA# [id number] [address] [place] [address] * (ABNORMAL) TRIGLYCERIDE (10/12/2020 9:45 AM CDT) TRIGLYCERIDE 4,173(H) <150 mg/dL 10/12/2020 10:32 AM CDT [facility] LABORATORY [facility] Blood Venipuncture / Unknown 10/12/2020 9:45 AM CDT 10/12/2020 9:45 AM CDT Narrative [facility] LABORATORY [facility] - 10/12/2020 10:32 AM CDT TRIGLYCERIDES ? mg/dL Normal ?< 150 Borderline High ?150 - 199 High ? 200 - 499 Very High ? >= 500 Based on AHA/NCEP Guidelines. Alize Arteaga MD CHEMISTRY ORDER OSVALDO Performing Organization Address [facility]/ZIP Co de Phone Number [facility] [employer] [facility] CLIA# [id number] [address] [place] [address] documented in this encounter Visit Diagnoses Diagnosis [...] documented as of this encounter Care Teams Chargeback Specialist Relationship Specialty Start Date End Date Guerrero Middleton PA-C PCP - General Physician Cook 3 Pastry 02/13/18 documented as of this encounter
--- OUTSIDE RECORDS SUMMARY | 2024-05-03 21:52 | XMS_ITS | Encounter Summary ---
Author Organization [facility] Address [address] [place] [address] Care Team Providers Care Senior Scheduler Name Role Phone Guerrero Middleton PA-C Primary Care Provide r Reason for Visit * Reason Onset Date Comments Smoking Cessation 09/15/2020 Encounter Details Date Type Department Care Team (Late st Contact Info) Description 09/15/2020 Telephone [facility] Pulmonary Rehab [address] [place] [address] Erin Prince, CONTACT ACID PLANT OPERATOR Smoking Cessation Social History Tobacco Use Types [...] Davey RN - 10/05/2020 3:17 PM CDT [facility] to Power:Left a second message regarding our available smoking cessation options here at [facility]. Encouraged patient to call if interested. I will no longer follow * Telephone Encounter - Kelsey Davey RN - 09/22/2020 2:01 PM CDT [facility] [address] to Power:Left message regarding our available smoking cessation options here at [facility]. Encouraged patient to call if interested * Telephone Encounter - Erin Prince RCP - 09/15/2020 10:23 AM CDT Smoking cessation order received from . Information mailed to patient. documented in this encounter Plan of Treatment Upcoming Encounters Date Type Department Care Team (Late st Contact [facility]) Description 09/14/2024 3:00 PM CDT Office Visit [facility] Heart [facility] - [facility] [place] [address] [place] [address] Marlys Mayer MD [address] [place] [address] documented as of this encounter Visit Diagnoses Not on filedocumented in this encounter Additional Health Concerns Assessment Noted Time PHQ-9 Depression Total Score: 1 08/11/19 21 6:30 PM CDT documented as of this encounter Care Teams Senior Scheduler Relationship Specialty Start Date End Date Guerrero Middleton PA-C PCP - General Physician Suction Roller 02/13/18 documented as of this encounter
--- OUTSIDE RECORDS SUMMARY | 2024-05-03 21:52 | XMS_ITS | Encounter Summary ---
Author Organization [facility] Address [address] [place] [address] Care Team Providers Care Front Desk Name Role Phone Guerrero Middleton PA-C Primary Care Provide r Reason for Visit * Reason Comments Medication Refill Encounter Details Date Type Department Care Team (Late st Contact Info) Description 07/04/2020 Refill [facility] Endocrinology [address] [place] [address] Prudence Gates MD [address] [place] [address] Social History Tobacco Use Types Packs/Day Years [...] COVID-19? No / Unsure 06/08/2020 9:32 AM SUPPORT GROUP MANAGER documented as of this encounter Miscellaneous Notes * Telephone Encounter - Gretchen Padilla - 07/04/2020 8:19 AM CST ANGELES 05/04/20 NOV 09/15/20 ORT GROUP MANAGER documented in this encounter Plan of Treatment Upcoming Encounters Date Type Department Care Team (Late st Contact Info) Description 09/14/2024 3:00 PM CDT Office Visit [facility] Heart and Vascular - [place] [address] [place] [address] Marlys Mayer MD [address] [place] [address] documented as of this encounter Visit Diagnoses Not on filedocumented in this encounter Care Teams Front Desk Relationship Specialty Start Date End Date Guerrero Middleton PA-C PCP - General Physician Fructose Loader 02/13/18 documented as of this encounter
--- OUTSIDE RECORDS SUMMARY | 2024-05-03 21:52 | XMS_ITS | Encounter Summary ---
Author Organization [facility] Address [address] [place] [address] Care Team Providers Care Technologist Infectious Disease Name Role Phone Guerrero Middleton PA-C Primary Care Provide r Encounter Details Date Type Department Care Team (Latest Contact Info) Description 10/05/2020 9:45 AM CDT - 10/05/2020 11:59 PM CDT Hospital Encounter [facility] Tobacco Cessation [address] [place] [address] [address] [id number] Discharge Disposition: Home or Self Care Social [...] EVERY DAY 90 Tablet 1 06/06/2020 01/27/2021 DexCasentric G6 Sensor Device Change sensor every 10 [...] [facility] [place] [facility] Vascular - [facility] [address] [place] [address] Marlys Mayer MD [address] [place] [address] documented as of this encounter Visit Diagnoses Not on filedocumented in this encounter Additional Health Concerns Assessment Noted Time PHQ-9 Depression Total Score: 1 08/11/19 21 6:30 PM CDT documented as of this encounter Care Teams Technologist Infectious Disease Relationship Specialty Start Date End Date Guerrero Middleton PA-C PCP - General Physician Hydro Technician 02/13/18 documented as of this encounter
--- OUTSIDE RECORDS SUMMARY | 2024-05-03 21:52 | XMS_ITS | Encounter Summary ---
Author Organization [facility] Address [address] Orozco: Epic Prelude ADT [place] [address] Care Team Providers Care Capacity Manager Name Role Phone Guerrero Middleton PA-C [...] week 08/21/2018 How often do you attend [facility] or congregation services? Never 08/21/2018 Do [...] [facility] [address] [address] [address] [place] [address] Marlys Mayer MD [address] [place] [address] documented as of this encounter Visit Diagnoses Not on filedocumented in this encounter Additional Health Concerns Assessment Noted Time PHQ-9 Depression Total Score: 1 08/11/19 21 6:30 PM CDT documented as of this encounter Care Teams Capacity Manager Relationship Specialty Start Date End Date Guerrero Middleton PA-C PCP - General Physician Public Relations Associate 02/13/18 documented as of this encounter
--- OUTSIDE RECORDS SUMMARY | 2024-05-03 21:52 | XMS_ITS | Encounter Summary ---
Author Organization [facility] Address [address] [place] [address] Care Team Providers Care Retail Services Professional Name Role Phone Guerrero Middleton PA-C Primary [...] Tequila t Referred To Contact Emergency Medicine [facility] Emergency Dept [address] [place] [address] Referral ID Status Reason Start Date Expiration Date Visits Re quested Visits Authorized [id number] 1 1 Encounter Details Date Type Department Care Team (Latest Contact Info) Description 08/10/2020 3:20 PM CDT - 08/14/2020 2:59 PM CDT Hospital Encounter [facility] Transitional Care Unit [address] [place] [address] Nano Galarza DO [address] [place] [address] Angie Louis MD [address] [address] Parviz Jamil MD [address] [place] [address] Recurrent pancreatitis Discharge Disposition: Home [...] from the original note were not included. [facility] Adult Hospitalist Discharge Summary Casandra Doss 44 y.o. female 1975 CSN: [id number] Date of Admission: 08/10/2020 Date of Discharge: [...] MD Quantity: 30 Tablet Refills: 6 Fish Oil-Mccurtain-3 Fatty Acids 360-1,200 mg Capsule Take 2 [...] MD - 08/13/2020 10:02 PM CDT [facility] 08/13/20 10:02 PM Contacted for: [...] bedside coworker PHOEBE Maxwell. upon transfer to [facility]. Chin Score: Chin Score: 21 (08/13/20 1615) [...] consult wound care services. 5. Is a certified medical technician in place?no If yes, remove device/brace/splint to [...] Wound care consult was not initiated. [facility] Skin Care Injury Prevention and Treatment Protocol [facility] Approved by: [facility] - Medical Executive Committee Approval Date: [...] 08/13/2020 4:00 PM CDT Pt transferred to [facility] 421 via transport in wheelchair; pt alert and oriented, no change in initialassessment, with pt, transferred with all personal belongings, report called to Katia OLGUIN; pttransported d/t change in POC and medication requirements * oRbyn Hernandez RN - 08/13/2020 1:29 PM CDT Plasma Exchange #3 Completed using R and L chest Apheresis ports. 1.0 Volume, 100% fluid balance using 5% Albumin as replacement fluid. Pt tolerated well. Next procedure will be tomorrow if Triglyceride level remains above 500. * Nano Galarza DO - 08/13/2020 12:39 PM CDT [facility] Adult Hospitalist Progress Note Admit Date: 08/10/2020 [...] the procedure. ?? Alize Arteaga MD, PhD Forensic Artist, therapeutic apheresis service [phone] ?? Procedure??notes:?L and??R bard ports??used for procedure. ??Patient tolerated procedure well.?? * Puja Paz RN - 08/12/2020 11:21 AM CDT Plasma exchange # 2 completed using R/L bard ports. 1.0 volume, 100% fluid balance using 5% albuminas replacement fluid. Pt tolerated the procedure well. * Nano Galarza, DO - 08/12/2020 10:52 AM CDT [facility] Adult Hospitalist Progress Note Admit Date: 08/10/2020 [...] apheresis due to spacing out procedures around [employer] ?? PMH: ??Hypertriglyceridemia (associated with prior episodes [...] the procedure. ?? Alize Arteaga MD, PhD Forensic Artist, therapeutic apheresis service [phone] ?? Procedure??notes:?L and??R bard ports??used for procedure. [...] Galarza, DO - 08/11/2020 1:17 PM CDT [facility] Adult Hospitalist Progress Note Admit Date: 08/10/2020 [...] King MD - 08/10/2020 11:39 PM CDT [facility]10/20 11:40 PM Contacted for: [...] Louis MD - 08/10/2020 5:02 PM CDT [facility] Hospitalist H&P Patient Name: Casandra Doss [...] She denies fever or dysuria. D/W Dr. aJmil in ER Past Medical History: Past Medical [...] of left power flow port 05/11/2019 ??? [place] ESOPHAGOGASTRODUODENOSCOPY TRANSORAL DIAGNOSTIC N/A 03/08/2018 ESOPHAGOGASTRODUODENOSCOPY performed by Ceasar Vega MD at [facility] GI LAB Current Medications: Prior to Admission Medications Prescriptions Last Dose Informant Patient Reported? Taking? Dexcom G6 Sensor Device No No Sig: Change sensor every 10 days. (9 sensors = 90 days) Dexcom G6 Transmitter Device No No Sig: Change transmitter every 90 days Fish Oil-Mccurtain-3 Fatty Acids 360-1,200 mg Capsule Yes No [...] Code Status: Full Code Angie Louis MD [facility] Hospitalist [phone] documented in this encounter ED Notes * [...] cardiac monitoring, and intermittent blood pressures. * Praviz Jamil MD - 08/10/2020 12:52 PM CDT [...] Refills: 0 Associated Diagnoses: Recurrent pancreatitis Fish Oil-Mccurtain-3 Fatty Acids 360-1,200 mg Capsule Take 2 [...] addressed. 5:11 PM: Discussed with Dr. Means ([facility] Hospitalist) who will admit to inpatient [...] Refills: 0 Associated Diagnoses: Recurrent pancreatitis Fish Oil-Mccurtain-3 Fatty Acids 360-1,200 mg Capsule Take 2 [...] because of medications (i.e. - BP meds, CV/ENROLLMENT REPRESENTATIVE meds, seizure meds, diuretics, pain meds, psych [...] planning. LOBO Parra Day 1 - Current ([place] [facility]: Adult and Obstetrics) Patient, family, or [...] No acute events overnight. Patient had an spanish ice for dinner but did not tolerate it well; had nausea and abdominal pain, controlled with oxy, dilaudid, and reglan. VSS on room air with soft blood pressures. documented in this encounter Plan of Treatment Upcoming Encounters Date Type Department Care Team (Late st Contact Info) Description 09/14/2024 3:00 PM CDT Office Visit [facility] [address] [place] [address] Marlys Mayer MD [address] [place] [address] documented as of this encounter Procedures Procedure [...] - 99 mg/dL 08/14/2020 2:02 PM CDT [facility] QUARRY SUPERVISOR NAME KATIA COSME 08/14/2020 2:02 PM CDT [facility] Blood, whole 08/14/2020 2:02 PM CDT 08/14/2020 2:12 PM CDT Nano Galarza DO POINT OF CARE TESTIN G [facility]# [id number] [address] [facility] [place] [address] * (ABNORMAL) POC GLUCOSE (08/14/2020 9:54 AM CDT) GLUCOSE POC 142(H) 74 - 99 mg/dL 08/14/2020 9:54 AM CDT [facility] QUARRY SUPERVISOR NAME KATIA COSME 08/14/2020 9:54 AM CDT [facility] Blood, whole 08/14/2020 9:54 AM CDT 08/14/2020 10:06 AM CDT Nano Galarza DO POINT OF CARE TESTIN G Performing Organization Address [facility]/ZIP Co de Phone Number [facility] [employer] [facility]# [id number] [address] [place] [address] * (ABNORMAL) POC GLUCOSE (08/14/2020 6:03 AM CDT) GLUCOSE POC 147(H) 74 - 99 mg/dL 08/14/2020 6:03 AM CDT [facility] COMMENT, GLU POC Notified RN/MD 08/14/2020 6:03 AM CDT [facility] QUARRY SUPERVISOR NAME POC IVETT TABOR Brittni 08/14/2020 6:03 AM CDT [facility] Blood, whole 08/14/2020 6:03 AM CDT 08/14/2020 6:11 AM CDT Nano Galarza DO POINT OF CARE TESTJERONIMO G Performing Organization Address [facility] Co de Phone Number [facility] [employer] [facility]# [id number] [address] [place] [address] * (ABNORMAL) TRIGLYCERIDE (08/14/2020 4:56 AM CDT) TRIGLYCERIDE 305(H) <150 mg/dL 08/14/2020 5:46 AM CDT [facility] [employer] [facility] Blood Venipuncture / Unknown 08/14/2020 4:56 AM CDT 08/14/2020 5:05 AM CDT Narrative [facility] - 08/14/2020 5:46 AM CDT TRIGLYCERIDES ? mg/dL Normal ?< 150 Borderline High ?150 - 199 High ? 200 - 499 Very High ? >= 500 Based on AHA/NCEP Guidelines. Nano Galarza DO CHEMISTRY ORDERABLES [facility] - [facility] CLIA# [id number] [address] [place] [address] * (ABNORMAL) CBC WITHOUT DIFFERENTIAL (08/14/2020 4:56 AM CDT) WBC 6.2 4.0 - 9.8 K/uL 08/14/2020 5:25 AM CDT [facility] - . [facility] RBC 3.70(L) 3.90 - 4.90 M/uL 08/14/2020 5:25 AM CDT [facility] HEMOGLOBIN 11.0(L) 11.8 - 14.8 g/dL 08/14/2020 5:25 AM CDT [facility] HEMATOCRIT 34.3(L) 35.5 - 44.0 % 08/14/2020 5:25 AM CDT [facility] - . [facility] MCV 92.7 82.0 - 99.0 fL 08/14/2020 5:25 AM CDT [facility] - . [facility] MCH 29.7 27.2 - 32.6 pg 08/14/2020 5:25 AM CDT [facility] MCHC 32.1 31.5 - 35.5 g/dL 08/14/2020 5:25 AM CDT [facility] - [facility] PLATELETS 126(L) 140 - 350 K/uL 08/14/2020 5:25 AM CDT [facility] [employer] SERVICES - . [facility] MPV 10.3 9.3 - 12.4 fL 08/14/2020 5:25 AM CDT [facility] - . [facility] RDW 13.9 11.5 - 14.5 % 08/14/2020 5:25 AM CDT [facility] - . [facility] RDW-STDEV 47.4 37.1 - 48.7 fL 08/14/2020 5:25 AM CDT [facility] - [facility] Blood Venipuncture / Unknown 08/14/2020 4:56 AM CDT 08/14/2020 5:05 AM CDT Nano Galarza DO HEMATOLOGY ORDERABLE S [facility] CLIA# [id number] [address] [place] [place] [address] * (ABNORMAL) BASIC METABOLIC PANEL (08/14/2020 4:56 AM CDT) [facility] SODIUM 139 136 - 145 mmol/L 08/14/2020 5:46 AM T [facility] - . [facility] POTASSIUM 3.6 3.5 - 5.0 mmol/L 08/14/2020 5:46 AM T [facility] - . [facility] CHLORIDE 107 98 - 107 mmol/L 08/14/2020 5:46 AM T [facility] - . [facility] CO2 24 22 - 29 mmol/L 08/14/2020 5:46 AM T [facility] - [facility] CALCIUM 8.3(L) 8.6 - 10.2 mg/dL 08/14/2020 5:46 AM T [facility] - . [facility] BUN 7 6 - 20 mg/dL 08/14/2020 5:46 AM T [facility] - [facility] CREATININE 0.51 0.51 - 0.95 mg/dL 08/14/2020 5:46 AM [facility] SERVICES - . [facility] GLUCOSE 96 74 - 99 mg/dL 08/14/2020 5:46 AM T [facility] - [facility] GFR >60 >=60 mL/min/1.7 3 sq meter 08/14/2020 5:46 AM [facility]AT[facility] SERVICES - . [facility] Comment: eGFR [...] 3 sq meter 08/14/2020 5:46 AM CDT [facility] ANION GAP 8 8 - 16 mmol/L 08/14/2020 5:46 AM CDT [facility] Blood Venipuncture / Unknown 08/14/2020 4:56 AM CDT 08/14/2020 5:05 AM CDT Nano Galarza DO CHEMISTRY ORDERABLES Performing Organization Address [facility]/ZIP Co de Phone Number [facility] [employer] [facility]# [id number] [address] [place] [address] * POC GLUCOSE (08/14/2020 4:52 AM CDT) GLUCOSE POC 97 74 - 99 mg/dL 08/14/2020 4:52 AM CDT [facility] QUARRY SUPERVISOR NAME POC ANOOP IOANA 08/14/2020 4:52 AM CDT [facility] Blood, whole 08/14/2020 4:52 AM CDT 08/14/2020 5:09 AM CDT Nano Galarza DO POINT OF CARE TESTIN G Performing Organization Address City/[facility]/ZIP Co de Phone Number [facility] [employer] [facility]# [id number] [address] [place] [address] * (ABNORMAL) POC GLUCOSE (08/14/2020 3:47 AM CDT) GLUCOSE POC 109(H) 74 - 99 mg/dL 08/14/2020 3:47 AM CDT [facility] COMMENT, GLU POC Notified RN/MD 08/14/2020 3:47 AM CDT [facility] QUARRY SUPERVISOR NAME POC ZAC BARRON 08/14/2020 3:47 AM CDT [facility] Blood, whole 08/14/2020 3:47 AM CDT 08/14/2020 4:15 AM CDT Nano Galarza DO POINT OF CARE TESTIN G Performing Organization Address City/[facility]/ZIP Co de Phone Number [facility] [employer] [facility] CLIA# [id number] [address] [place] [address] * (ABNORMAL) POC GLUCOSE (08/14/2020 3:10 AM CDT) GLUCOSE POC 112(H) 74 - 99 mg/dL 08/14/2020 3:10 AM CDT [facility] QUARRY SUPERVISOR NAME POC IOANA DAVALOS 08/14/2020 3:10 AM CDT [facility] Blood, whole 08/14/2020 3:10 AM CDT 08/14/2020 3:20 AM CDT Nano Galarza DO POINT OF CARE TESTIN Maggie Performing Organization Address [facility] Co de Phone Number [facility] [employer] [facility] CLIA# [id number] [address] [place] [address] * (ABNORMAL) POC GLUCOSE (08/14/2020 1:55 AM CDT) GLUCOSE POC 168(H) 74 - 99 mg/dL 08/14/2020 1:55 AM CDT [facility] QUARRY SUPERVISOR NAME POC IOANA DAVALOS 08/14/2020 1:55 AM CDT [facility] Blood, whole 08/14/2020 1:55 AM CDT 08/14/2020 2:14 AM CDT Nano Galarza DO POINT OF CARE TESTIN G [facility] [id number] [address] [place] [address] * (ABNORMAL) POC GLUCOSE (08/14/2020 1:00 AM CDT) GLUCOSE POC 206(H) 74 - 99 mg/dL 08/14/2020 1:00 AM CDT [facility] QUARRY SUPERVISOR NAME IOANA STEPHEN 08/14/2020 1:00 AM CDT [facility] Blood, whole 08/14/2020 1:00 AM CDT 08/14/2020 1:13 AM CDT Nano Galarza DO POINT OF CARE TESTIN G Performing Organization Address [facility]/ZIP Co de Phone Number [facility]# [id number] [address] [place] [address] * (ABNORMAL) POC GLUCOSE (08/13/2020 11:59 PM CDT) GLUCOSE POC 171(H) 74 - 99 mg/dL 08/13/2020 11:59 PM CDT [facility] QUARRY SUPERVISOR NAME POC IOANA DAVALOS 08/13/2020 11:59 PM CDT [facility] Blood, whole 08/13/2020 11:5 9 PM CDT 08/14/2020 12:15 AM CDT Nano Galarza DO POINT OF CARE TESTIN G [facility]# [id number] [address] [place] [address] * (ABNORMAL) POC GLUCOSE (08/13/2020 10:57 PM CDT) GLUCOSE POC 163(H) 74 - 99 mg/dL 08/13/2020 10:57 PM CDT [facility] QUARRY SUPERVISOR NAME IOANA STEPHEN 08/13/2020 10:57 PM CDT [facility] Blood, whole 08/13/2020 10:5 7 PM CDT 08/13/2020 11:05 PM CDT Nano Galarza DO POINT OF CARE TESTIN G Performing Organization Address [facility]/ZIP Co de Phone Number [facility]# [id number] [address] [place] [address] * (ABNORMAL) POC GLUCOSE (08/13/2020 10:18 PM CDT) GLUCOSE POC 130(H) 74 - 99 mg/dL 08/13/2020 10:18 PM CDT [facility] QUARRY SUPERVISOR NAME IOANA STEPHEN 08/13/2020 10:18 PM CDT [facility] Blood, whole 08/13/2020 10:1 8 PM CDT 08/13/2020 11:05 PM CDT Nano Galarza DO POINT OF CARE TESTJERONIMO G Performing Organization Address [facility]/ZIP Co de Phone Number [facility]# [id number] [address] [place] [address] * (ABNORMAL) POC GLUCOSE (08/13/2020 9:08 PM CDT) GLUCOSE POC 208(H) 74 - 99 mg/dL 08/13/2020 9:08 PM CDT [facility] QUARRY SUPERVISOR NAME IOANA STEPHEN 08/13/2020 9:08 PM CDT [facility] Blood, whole 08/13/2020 9:08 PM CDT 08/13/2020 9:30 PM CDT Nano Galarza DO POINT OF CARE TESTIN G [facility] CLIA# [id number] [address] [place] [address] * (ABNORMAL) POC GLUCOSE (08/13/2020 7:57 PM CDT) GLUCOSE POC 290(H) 74 - 99 mg/dL 08/13/2020 7:57 PM CDT [facility] QUARRY SUPERVISOR NAME POC ZAC BARRON 08/13/2020 7:57 PM CDT [facility] Blood, whole 08/13/2020 7:57 PM CDT 08/13/2020 8:05 PM CDT Nanoalexandre Galarza POINT OF CARE TESTIN G Performing Organization Address [facility]/ZIP Co de Phone Number [facility] CLIA# [id number] [address] [place] [address] * (ABNORMAL) POC GLUCOSE (08/13/2020 7:03 PM CDT) GLUCOSE POC 285(H) 74 - 99 mg/dL 08/13/2020 7:03 PM CDT [facility] QUARRY SUPERVISOR NAME POC KATIA LIMA 08/13/2020 7:03 PM CDT [facility] Blood, whole 08/13/2020 7:03 PM CDT 08/13/2020 7:32 PM CDT Nanoalexandre Galarza POINT OF CARE TESTIN Maggie [facility] CLIA# [id number] [address] [place] [address] * (ABNORMAL) POC GLUCOSE (08/13/2020 5:57 PM CDT) GLUCOSE POC 252(H) 74 - 99 mg/dL 08/13/2020 5:57 PM CDT [facility] QUARR[employer] SUPERVISOR NAME POC PHONG KNIGHT 08/13/2020 5:57 PM CDT [facility] Blood, whole 08/13/2020 5:57 PM CDT 08/13/2020 6:04 PM CDT Nano Galarza DO POINT OF CARE TESTIN G Performing Organization Address City/[facility]/ZIP Co de Phone Number [facility]# [id number] [address] [place] [address] * (ABNORMAL) TRIGLYCERIDE (08/13/2020 5:38 PM CDT) Pathologist [facility] TRIGLYCERIDE 1,097(H) <150 mg/dL 08/13/2020 6:36 PM CDT [facility] Blood Venipuncture / Unknown 08/13/2020 5:38 PM CDT 08/13/2020 5:46 PM CDT Narrative [facility] - 08/13/2020 6:36 PM CDT TRIGLYCERIDES ? mg/dL Normal ?< 150 Borderline High ?150 - 199 High ? 200 - 499 Very High ? >= 500 Based on AHA/NCEP Guidelines. Nano Galarza DO CHEMISTRY ORDERABLES Performing Organization Address [facility]/ZIP Co de Phone Number [facility]# [id number] [address] [place] [address] * (ABNORMAL) POC GLUCOSE (08/13/2020 4:31 PM CDT) GLUCOSE POC 284(H) 74 - 99 mg/dL 08/13/2020 4:31 PM CDT [facility] [employer] SUPERVISOR NAME POC KATIA LIMA 08/13/2020 4:31 PM CDT [facility] Blood, whole 08/13/2020 4:31 PM CDT 08/13/2020 4:46 PM CDT Nano Galarza DO POINT OF CARE TESTIN G Performing Organization Address City/[facility]/ZIP Co de Phone Number [facility] CLIA# [id number] [address] [facility] [place] [address] * (ABNORMAL) POC GLUCOSE (08/13/2020 1:18 PM CDT) GLUCOSE POC 178(H) 74 - 99 mg/dL 08/13/2020 1:18 PM CDT [facility] QUARRY SUPERVISOR NAME POC CE SOTELO 08/13/2020 1:18 PM CDT [facility] Blood, whole 08/13/2020 1:18 PM CDT 08/13/2020 1:26 PM CDT Nano Galarza DO POINT OF CARE TESTIN G Performing Organization Address [facility]/ZIP Co de Phone Number [facility] CLIA# [id number] [address] [place] [address] * (ABNORMAL) POC GLUCOSE (08/13/2020 8:58 AM CDT) GLUCOSE POC 194(H) 74 - 99 mg/dL 08/13/2020 8:58 AM CDT [facility] QUARRY SUPERVISOR NAME CE EDUARDO 08/13/2020 8:58 AM CDT [facility] Blood, whole 08/13/2020 8:58 AM CDT 08/13/2020 9:05 AM CDT Nano Galarza DO POINT OF CARE TESTIN G [facility] [employer] [facility]# [id number] [address] [place] [address] * (ABNORMAL) TRIGLYCERIDE (08/13/2020 7:30 AM CDT) TRIGLYCERIDE 2,092(H) <150 mg/dL 08/13/2020 9:45 AM CDT [facility] Blood Venipuncture / Unknown 08/13/2020 7:30 AM CDT 08/13/2020 8:35 AM CDT Narrative [facility] [employer] [facility] - 08/13/2020 9:45 AM CDT TRIGLYCERIDES ? mg/dL Normal ?< 150 Borderline High ?150 - 199 High ? 200 - 499 Very High ? >= 500 Based on AHA/NCEP Guidelines. Nano Galarza DO CHEMISTRY ORDERABLES Performing Organization Address [facility] Co de Phone Number [facility] [employer] [facility]# [id number] [address] [place] [address] * (ABNORMAL) POC GLUCOSE (08/12/2020 10:15 PM CDT) GLUCOSE POC 243(H) 74 - 99 mg/dL 08/12/2020 10:15 PM CDT [facility] COMMENT, GLU POC Notified RN/MD 08/12/2020 10:15 PM CDT [facility] QUARRY SUPERVISOR NAME POC MEERA MURRAY 08/12/2020 10:15 PM CDT [facility] Blood, whole 08/12/2020 10:1 5 PM CDT 08/12/2020 10:23 PM CDT Nano Galarza DO POINT OF CARE TESTIN G [facility] CLIA# [id number] [address] [place] [address] * (ABNORMAL) POC GLUCOSE (08/12/2020 6:08 PM CDT) GLUCOSE POC 180(H) 74 - 99 mg/dL 08/12/2020 6:08 PM CDT [facility] [employer] SUPERVISOR NAME POC AYLA BOWEN 08/12/2020 6:08 PM CDT [facility] Blood, whole 08/12/2020 6:08 PM CDT 08/12/2020 6:15 PM CDT Nano Galarza DO POINT OF CARE TESTIN Maggie Performing Organization Address [facility]/ZIP Co de Phone Number [facility] CLIA# [id number] [address] [place] [address] * (ABNORMAL) POC GLUCOSE (08/12/2020 12:59 PM CDT) GLUCOSE POC 191(H) 74 - 99 mg/dL 08/12/2020 12:59 PM CDT [facility] QUARRY SUPERVISOR NAME POC AMALIA GALINDO 08/12/2020 12:59 PM CDT [facility] Blood, whole 08/12/2020 12:5 9 PM CDT 08/12/2020 1:17 PM CDT Nano Galarza DO POINT OF CARE TESTIN Maggie [facility] CLIA# [id number] [address] [place] [address] * (ABNORMAL) POC GLUCOSE (08/12/2020 9:36 AM CDT) GLUCOSE POC 141(H) 74 - 99 mg/dL 08/12/2020 9:36 AM CDT [facility] QUARRY SUPERVISOR NAME POC AYLA BOWEN 08/12/2020 9:36 AM CDT [facility] Blood, whole 08/12/2020 9:36 AM CDT 08/12/2020 9:43 AM CDT Nano Galarza DO POINT OF CARE TESTIN [facility] CLIA# [id number] [address] [facility] [place] [id number] * (ABNORMAL) CBC WITHOUT DIFFERENTIAL (08/12/2020 7:06 AM CDT) WBC 7.4 4.0 - 9.8 K/uL 08/12/2020 8:12 AM CDT [facility] . [facility] RBC 4.26 3.90 - 4.90 M/uL 08/12/2020 8:12 AM CDT [facility] . [facility] HEMOGLOBIN 13.0 11.8 - 14.8 g/dL 08/12/2020 8:12 AM CDT [facility] . [facility] HEMATOCRIT 39.1 35.5 - 44.0 % 08/12/2020 8:12 AM CDT [facility] - . [facility] MCV 91.8 82.0 - 99.0 fL 08/12/2020 8:12 AM CDT [facility] - . [place] MCH 30.5 27.2 - 32.6 pg 08/12/2020 8:12 AM CDT [facility] - . [facility] MCHC 33.2 31.5 - 35.5 g/dL 08/12/2020 8:12 AM CDT [facility] . [facility] PLATELETS 161 140 - 350 K/uL 08/12/2020 8:12 AM CDT [facility] . [facility] MPV 9.9 9.3 - 12.4 fL 08/12/2020 8:12 AM CDT [facility] . [facility] RDW 14.6(H) 11.5 - 14.5 % 08/12/2020 8:12 AM [facility] RDW-STDEV 49.4(H) 37.1 - 48.7 fL 08/12/2020 8:12 AM [facility] [employer] [facility] Blood Venipuncture / Unknown 08/12/2020 7:06 AM CDT 08/12/2020 7:57 AM CDT Nano Galarza DO HEMATOLOGY ORDERABLE S [facility] [employer] SERVICES [facility] CLIA# [id number] [address] [place] [address] * (ABNORMAL) BASIC METABOLIC PANEL (08/12/2020 7:05 AM CDT) SODIUM 138 136 - 145 mmol/L 08/12/2020 9:01 AM [facility] [employer] [facility] POTASSIUM 4.0 3.5 - 5.0 mmol/L 08/12/2020 9:01 AM [facility] [employer] [facility] CHLORIDE 107 98 - 107 mmol/L 08/12/2020 9:01 AM [facility] [employer] [facility] CO2 21(L) 22 - 29 mmol/L 08/12/2020 9:01 AM [facility] [employer] [facility]. [facility] CALCIUM 8.4(L) 8.6 - 10.2 mg/dL 08/12/2020 9:01 AM [facility] [employer] [facility]. [place] BUN 6 6 - 20 mg/dL 08/12/2020 9:01 AM [facility] [employer] [facility]. [facility] CREATININE 0.45(L) 0.51 - 0.95 mg/dL 08/12/2020 9:01 AM [facility] [employer] [facility]. [facility] GLUCOSE 137(H) 74 - 99 mg/dL 08/12/2020 9:01 AM [facility] [employer] [facility]. [facility] GFR >60 >=60 mL/min/1.7 3 sq meter 08/12/2020 9:01 AM [facility] [employer] [facility] MAL[facility] Comment: eGFR has not been validated [...] 3 sq meter 08/12/2020 9:01 AM CDT [facility] ANION GAP 10 8 - 16 mmol/L 08/12/2020 9:01 AM CDT [facility] Blood Venipuncture / Unknown 08/12/2020 7:05 AM CDT 08/12/2020 7:57 AM CDT Nano Galarza DO CHEMISTRY ORDERABLES [facility]# [id number] [address] [place] [address] * (ABNORMAL) TRIGLYCERIDE (08/12/2020 7:05 AM CDT) [facility] TRIGLYCERIDE 1,725(H) <150 mg/dL 08/12/2020 9:13 AM CDT [facility] Blood Venipuncture / Unknown 08/12/2020 7:05 AM CDT 08/12/2020 7:57 AM CDT Narrative [facility] - 08/12/2020 9:13 AM CDT TRIGLYCERIDES ? mg/dL Normal ?< 150 Borderline High ?150 - 199 High ? 200 - 499 Very High ? >= 500 Based on AHA/NCEP Guidelines. Nano Galarza DO CHEMISTRY ORDERABLES Performing Organization Address [facility]/ZIP Co de Phone Number [facility] CLIA# [id number] [address] [place] [address] * (ABNORMAL) POC GLUCOSE (08/11/2020 10:04 PM CDT) GLUCOSE POC 158(H) 74 - 99 mg/dL 08/11/2020 10:04 PM CDT [facility] COMMENT, GLU POC Notified RN/MD 08/11/2020 10:04 PM CDT [facility] QUARRY SUPERVISOR NAME POC WILMER MORGAN 08/11/2020 10:04 PM CDT [facility] Blood, whole 08/11/2020 10:0 4 PM CDT 08/11/2020 10:14 PM CDT Nano Galarza DO POINT OF CARE TESTIN Maggie Performing Organization Address [facility]/ZIP Co de Phone Number [facility] [employer] [facility] CLIA# [id number] [address] [place] [address] * (ABNORMAL) POC GLUCOSE (08/11/2020 6:09 PM CDT) GLUCOSE POC 124(H) 74 - 99 mg/dL 08/11/2020 6:09 PM CDT [facility] QUARRY SUPERVISOR NAME POC AYLA BOWEN 08/11/2020 6:09 PM CDT [facility] Blood, whole 08/11/2020 6:09 PM CDT 08/11/2020 6:31 PM CDT Nano Galarza DO POINT OF CARE TESTIN Maggie [facility] CLIA# [id number] [address] [place] [address] * (ABNORMAL) POC GLUCOSE (08/11/2020 1:46 PM CDT) GLUCOSE POC 119(H) 74 - 99 mg/dL 08/11/2020 1:46 PM CDT [facility] QUARRY SUPERVISOR NAME POC AYLA BOWEN 08/11/2020 1:46 PM CDT [facility] Blood, whole 08/11/2020 1:46 PM CDT 08/11/2020 5:12 PM CDT Nano Galarza POINT OF CARE TESTIN Maggie Performing Organization Address [facility]/ZIP Co de Phone Number [facility] CLIA# [id number] [address] [place] [address] * POC GLUCOSE (08/11/2020 1:26 PM CDT) GLUCOSE POC 80 74 - 99 mg/dL 08/11/2020 1:26 PM CDT [facility] QUARRY SUPERVISOR NAME POC AYLA BOWEN 08/11/2020 1:26 PM CDT [facility] Blood, whole 08/11/2020 1:26 PM CDT 08/11/2020 5:12 PM CDT Nanoalexandre Galarza POINT OF CARE TESTIN Maggie Performing Organization Address City/[facility]/ZIP Co de Phone Number [facility] CLIA# [id number] [address] [place] [address] * (ABNORMAL) POC GLUCOSE (08/11/2020 1:12 PM CDT) GLUCOSE POC 66(L) 74 - 99 mg/dL 08/11/2020 1:12 PM CDT [facility] COMMENT, GLU POC To be Repeated 08/11/2020 1:12 PM CDT [facility] COMMENT 2, GLU POC Notified RN/MD 08/11/2020 1:12 PM CDT [facility] QUARRY SUPERVISOR NAME POC YAMIL BRODY 08/11/2020 1:12 PM CDT [facility] Blood, whole 08/11/2020 1:12 PM CDT 08/11/2020 5:12 PM CDT Nano Galarza DO POINT OF CARE TESTIN Maggie Performing Organization Address City/[facility]/ZIP Co de Phone Number [facility] CLIA# [id number] [address] [place] [address] * (ABNORMAL) POC GLUCOSE (08/11/2020 1:09 PM CDT) GLUCOSE POC 66(L) 74 - 99 mg/dL 08/11/2020 1:09 PM CDT [facility] COMMENT, GLU POC Repeated Glucose 08/11/2020 1:09 PM CDT [facility] COMMENT 2, GLU POC Notified RN/MD 08/11/2020 1:09 PM CDT [facility] QUARRY SUPERVISOR NAME POC AYLA BOWEN 08/11/2020 1:09 PM CDT [facility] Blood, whole 08/11/2020 1:09 PM CDT 08/11/2020 1:17 PM CDT Nano Galarza DO POINT OF CARE FLY Serrano Performing Organization Address City/[facility]/ZIP Co de Phone Number [facility] CLIA# [id number] [address] [place] [address] * (ABNORMAL) TRIGLYCERIDE (08/11/2020 10:39 AM CDT) Pathologist [facility] TRIGLYCERIDE 2,222(H) <150 mg/dL 08/11/2020 11:45 AM CDT [facility] Blood Venipuncture / Unknown 08/11/2020 10:39 AM CDT 08/11/2020 10:47 AM CDT Narrative [facility] - [facility] - 08/11/2020 11:45 AM CDT TRIGLYCERIDES ? mg/dL Normal ?< 150 Borderline High ?150 - 199 High ? 200 - 499 Very High ? >= 500 Based on AHA/NCEP Guidelines. Alize Arteaga MD CHEMISTRY ORDER OSVALDO Performing Organization Address [facility] Co de Phone Number [facility] [employer] [facility] [id number] [address] [place] [address] * (ABNORMAL) POC GLUCOSE (08/11/2020 9:17 AM CDT) GLUCOSE POC 134(H) 74 - 99 mg/dL 08/11/2020 9:17 AM CDT [facility] QUARRY SUPERVISOR NAME AYLA BAEZA 08/11/2020 9:17 AM CDT [facility] Blood, whole 08/11/2020 9:17 AM CDT 08/11/2020 9:24 AM CDT Nano Galarza DO POINT OF CARE TESTIN G Performing Organization Address [facility] Co de Phone Number [facility] [employer] [facility]# [id number] [address] [place] [address] * (ABNORMAL) POC GLUCOSE (08/10/2020 9:55 PM CDT) GLUCOSE POC 206(H) 74 - 99 mg/dL 08/10/2020 9:55 PM CDT [facility] COMMENT, GLU POC Notified RN/MD 08/10/2020 9:55 PM CDT [facility] QUARRY SUPERVISOR NAME POC JUDTIHDANICA 08/10/2020 9:55 PM CDT [facility] Blood, whole 08/10/2020 9:55 PM CDT 08/10/2020 10:05 PM CDT Angie Louis MD POINT OF CARE TESTIN G Performing Organization Address [facility] Co de Phone Number [facility]# [id number] [address] [place] [address] * (ABNORMAL) TRIGLYCERIDE (08/10/2020 3:43 PM CDT) TRIGLYCERIDE 2,425(H) <150 mg/dL 08/10/2020 5:13 PM CDT [facility] Blood Venipuncture / Unknown 08/10/2020 3:43 PM CDT 08/10/2020 3:49 PM CDT Narrative [facility] [employer] [facility] - 08/10/2020 5:13 PM CDT TRIGLYCERIDES ? mg/dL Normal ?< 150 Borderline High ?150 - 199 High ? 200 - 499 Very High ? >= 500 Based on AHA/NCEP Guidelines. Parviz Jamil MD CHEMISTRY ORDERABLES Performing Organization Address [facility] Co de Phone Number [facility] [employer] [facility]# [id number] [address] [place] [address] * LIPASE (08/10/2020 3:43 PM CDT) LIPASE 42 13 - 60 U/L 08/10/2020 4:55 PM CDT [facility] [employer] [facility] Blood Venipuncture / Unknown 08/10/2020 3:43 PM CDT 08/10/2020 3:49 PM CDT Parviz Jamil MD CHEMISTRY ORDERABLES [facility] - [facility] CLIA# [id number] [address] [place] [address] * (ABNORMAL) COMPREHENSIVE METABOLIC PANEL (08/10/2020 3:43 PM CDT) SODIUM 132(L) 136 - 145 mmol/L 08/10/2020 5:13 PM CDT [facility] - [facility] POTASSIUM 4.7 3.5 - 5.0 mmol/L 08/10/2020 5:13 PM CDT [facility] Comment:Moderate hemolysis p resent. Can cause significant falsely elevated result. Redraw if indicated. CHLORIDE 98 98 - 107 mmol/L 08/10/2020 5:13 PM CDT [facility] - . [place] CO2 21(L) 22 - 29 mmol/L 08/10/2020 5:13 PM CDT [facility] - . [place] CALCIUM 9.2 8.6 - 10.2 mg/dL 08/10/2020 5:13 PM CDT [facility] - . [place] BUN 7 6 - 20 mg/dL 08/10/2020 5:13 PM CDT [facility] . [place] CREATININE 0.57 0.51 - 0.95 mg/dL 08/10/2020 5:13 PM CDT [facility] - . [place] GLUCOSE 331(H) 74 - 99 mg/dL 08/10/2020 5:13 PM CDT [facility] [place] TOTAL PROTEIN 6.1(L) 6.7 - 8.6 g/dL 08/10/2020 5:13 PM CDT [facility] [place] ALBUMIN 4.5 3.5 - 5.2 g/dL 08/10/2020 5:13 PM CDT [facility] [place] BILIRUBIN TOTAL 0.3 0.3 - 1.2 mg/dL 08/10/2020 5:13 PM CDT [facility] - . [place] ALKALINE PHOSPHATASE 43 35 - 104 U/L 08/10/2020 5:13 PM CDT [facility] - [facility] [place] AST 22 <33 U/L 08/10/2020 5:13 PM T [facility] Comment: Cleared of chylomicrons. Hemolysis present. ??Result may be falsely elevated. ALT 13 <34 U/L 08/10/2020 5:13 PM CDT [facility] Comment: Cleared of chylomicrons. Hemolysis present. ??Result may be falsely elevated. GFR >60 >=60 mL/min/1.7 3 sq meter 08/10/2020 5:13 PM CDT [facility] Comment: eGFR has [...] 3 sq meter 08/10/2020 5:13 PM CDT [facility] ANION GAP 13 8 - 16 mmol/L 08/10/2020 5:13 PM T [facility] Blood Venipuncture / Unknown 08/10/2020 3:43 PM CDT 08/10/2020 3:49 PM CDT Narrative [facility] - 08/10/2020 5:13 PM CDT Samples containing indocyanine green cause interferences on Total and/or Direct Bilirubin and must not be measured. Parviz Jamil MD CHEMISTRY ORDERABLES [facility] [id number] [address] [facility] [place] [address] * (ABNORMAL) CBC WITH DIFFERENTIAL (08/10/2020 3:43 PM CDT) WBC 11.4(H) 4.0 - 9.8 K/uL 08/10/2020 4:20 PM CDT [facility] [place] RBC 4.98(H) 3.90 - 4.90 M/uL 08/10/2020 4:20 PM CDT [facility] [place] HEMOGLOBIN 15.9(H) 11.8 - 14.8 g/dL 08/10/2020 4:20 PM CDT [facility] [place] HEMATOCRIT 44.5(H) 35.5 - 44.0 % 08/10/2020 4:20 PM CDT [facility] [place] MCV 89.4 82.0 - 99.0 fL 08/10/2020 4:20 PM CDT [facility] [place] MCH 31.9 27.2 - 32.6 pg 08/10/2020 4:20 PM CDT [facility] - . [facility] MCHC 35.7(H) 31.5 - 35.5 g/dL 08/10/2020 4:20 PM CDT [facility] RDW 14.1 11.5 - 14.5 % 08/10/2020 4:20 PM CDT [facility] RDW-STDEV 45.9 37.1 - 48.7 fL 08/10/2020 4:20 PM CDT [facility] [place] PLATELETS 226 140 - 350 K/uL 08/10/2020 4:20 PM CDT [facility] . [place] MPV 9.9 9.3 - 12.4 fL 08/10/2020 4:20 PM CDT [facility] [place] NEUTROPHILS 67 % 08/10/2020 4:20 PM CDT [facility] [place] LYMPHOCYTES 25 % 08/10/2020 4:20 PM CDT [facility] [place] MONOCYTES 5 % 08/10/2020 4:20 PM CDT [facility] EOSINOPHILS 1 % 08/10/2020 4:20 PM CDT [facility] [place] BASOPHILS 1 % 08/10/2020 4:20 PM CDT [facility] IMMATURE GRANULOCYTES 1 % 08/10/2020 4:20 PM CDT [facility] Comment:IG (Immature Granulo cyte) count includes Metamyelocytes, Myelocytes, and Promyelocytes NEUTROPHIL ABSOLUTE 7.67(H) 1.90 - 7.00 K/uL 08/10/2020 4:20 PM CDT [facility] LYMPHOCYTE ABSOLUTE 2.85 0.70 - 4.50 K/uL 08/10/2020 4:20 PM CDT [facility] MONOCYTE ABSOLUTE 0.60 0.10 - 1.30 K/uL 08/10/2020 4:20 PM CDT [facility] - . [facility] EOSINOPHIL ABSOLUTE 0.11 0.00 - 0.70 K/uL 08/10/2020 4:20 PM CDT [facility] - . [facility] BASOPHILS ABSOLUTE 0.07 0.00 - 0.20 K/uL 08/10/2020 4:20 PM CDT [facility] IMMATURE GRANULOCYTES ABSOLUTE 0.14(H) 0.00 - 0.03 K/uL 08/10/2020 4:20 PM CDT [facility] Blood Venipuncture / Unknown 08/10/2020 3:43 PM CDT 08/10/2020 3:49 PM CDT Parviz Jamil MD HEMATOLOGY ORDERABLE S [facility]# [id number] [address] [facility] [place] [address] * EKG 12-LEAD (08/10/2020 1:10 PM CDT) 08/10/2020 1:10 PM CDT Narrative INTERFACE SYSTEM - 08/10/2020 4:38 PM CDT ? Stationary ECG Study ? [facility] ? Test Date: ?08/10/2020 1:10 PM Pat Name: ? CASANDRA FEDDER ?Department: ?? 37 ?Room: ? Gender: ? F ?Rn Wellness: ?? chesc1 : ?1975 ? Requested By: ?? Order Number: [id number] ?Reading MD: ?? Parviz Brunts ? Measurements Intervals ?[place] ? Rate: ? 105 ?P: ?59 WI: ? 144 ?QRS: ?63 QRSD: ? 85 ? T: ?3 QT: ? 338 ? QTc: ?447 ? Interpretive Statements ? Sinus tachycardia Borderline T wave abnormalities Electronically Signed On 08-10-2020 16:38:20 CDT by Parviz Wyman Procedure Note Parviz Wyman MD - 08/10/2020 [facility] Test Date: 08/10/2020 1:10 PM Pat Name: CASANDRA DOSS Department: 37 Room: Gender: Rn Wellness: [facility] : 1975 Requested By: Order Number: [id number] [place] MD: Parviz Wyman Measurements Intervals [place] Rate: 105 P: 59 WI: 144 QRS: 63 QRSD: 85 T: 3 [...] 08/10/2020 3:45 PM CDT 100 mcg Fish Oil-Mccurtain-3 Fatty Acids 360-1,200 mg capsule 1 Capsule [...] Oral, ONE TIME ONLY, 1 dose, On [facility] 08/13/20 at 2215, Routine Given 08/13/2020 [...] chloride (OCEAN) 0.65 % nasal soln 2 Nemo 2 Nemo, Both Nostrils, EVERY 15 MINUTES PRN, Starting [...] (Given - Provider: Katia Lima RN) Fish Oil-Mccurtain-3 Fatty Acids 360-1,200 mg capsule 1 Capsule [...] Yumiko Duron RN) 0932 (Given - Provider: Elke Rockwell RN)2119 (Given - Provider: Ioana Davalos, [...] RN) 0000 (Rate Verify - Provider: Ioana Davaols RN)0200 (Rate Verify - Provider: Ioana Davalos [...] Provider: Amalia Galindo RN)173 (Given - Provider: Amalia Galindo RN) 924 (Given - Provider: Elke [...] chloride (OCEAN) 0.65 % nasal soln 2 Nemo 2 Nemo, Both Nostrils, EVERY 15 MINUTES PRN, Starting on Katie 08/11/20 at 1726, Until 08/14/20 at 1659, Congestion, Routine documented in this encounter Additional Health Concerns Assessment Noted Time PHQ-9 Depression Total Score: 1 08/11/19 21 6:30 PM CDT documented as of this encounter Care Teams Retail Services Professional Relationship Specialty Start Date End Date Guerrero Middleton PA-C PCP - General Physician Transmission Operator 02/13/18 documented as of this encounter
--- OUTSIDE RECORDS SUMMARY | 2024-05-03 21:52 | XMS_ITS | Encounter Summary ---
Author Organization [facility] Address [address] Orozco: Epic Prelude ADT [place] [address] Care Team Providers Care Colorist Formulator Name Role Phone Guerrero Middleton PA-C Primary [...] often do [facility] or [facility] services? Never 08/21/2018 Do you [...] [facility] [place] [address] Marlys Mayer MD [address] [place] [address] documented as of this encounter Visit Diagnoses Not on filedocumented in this encounter Additional Health Concerns Assessment Noted Time PHQ-9 Depression Total Score: 1 08/11/19 21 6:30 PM CDT documented as of this encounter Care Teams Colorist Formulator Relationship Specialty Start Date End Date Guerrero Middleton PA-C PCP - General Physician Linen Grader 02/13/18 documented as of this encounter
--- OUTSIDE RECORDS SUMMARY | 2024-05-03 21:52 | XMS_ITS | Encounter Summary ---
Author Organization [facility] Address [address] [place] [address] Care Team Providers Care Petroleum Terminal Plant Operator Name Role Phone Guerrero Middleton PA-C Primary Care Provide r Reason for Visit * Reason Comments Diabetes sensor upload Encounter Details Date Type Department Care Team (Late st Contact Info) Description 11/09/2020 Chart Note [facility] Endocrinology [address] [place] [address] Prudence Gates MD [address] [place], [place] [id number] Diabetes (sensor upload ) Social History Tobacco [...] [facility] - [place] [address] [place] [id number] Marlys Mayer MD [address] [place] [address] documented as of this encounter Visit Diagnoses Diagnosis Uncontrolled type 2 diabetes mellitus with insulin therapy- Primary Type II or unspecified type diabetes mellitus without mention of complication, uncontrolled documented in this encounter Additional Health Concerns Assessment Noted Time PHQ-9 Depression Total Score: 1 08/11/19 21 6:30 PM CDT documented as of this encounter Care Teams Petroleum Terminal Plant Operator Relationship Specialty Start Date End Date Guerrero Middleton PA-C PCP - General Physician Barrel Reamer 02/13/18 documented as of this encounter
--- OUTSIDE RECORDS SUMMARY | 2024-05-03 21:52 | XMS_ITS | Encounter Summary ---
Author Organization [facility] Address [address] Orozco: Epic Prelude ADT [place] [address] Care Team Providers Care It Help Desk Manager Name Role Phone Guerrero Middleton PA-C [...] How often do you attend [facility] or [facility] services? Never 08/21/2018 Do you [...] [facility] [address] [place] [address] Marlys Mayer MD [address] [place] [address] documented as of this encounter Visit Diagnoses Not on filedocumented in this encounter Care Teams It Help Desk Manager Relationship Specialty Start Date End Date Guerrero Middleton PA-C PCP - General Physician Hood Fitter 02/13/18 documented as of this encounter
--- OUTSIDE RECORDS SUMMARY | 2024-05-03 21:52 | XMS_ITS | Encounter Summary ---
Author Organization [facility] Address [address] [place] [address] Care Team Providers Care Phlebotomy Support Tech Name Role Phone Guerrero Middleton PA-C Primary Care Provide r Encounter Details Date Type Department Care Team (Latest Contact Info) Description 09/15/2020 12:35 PM CDT - 09/15/2020 11:59 PM CDT Hospital Encounter [facility] Donor Services [address] [phone] Alize Arteaga MD NO ADDRESS ON FILE [...] Progress Notes * Sharri Juarez RN - 09/15/2020 1:00 PM CDT [...] the procedure. ?? Alize Arteaga MD, PhD Experience Specialist, therapeutic apheresis service [phone] ?? Procedure??notes:?L and??R bard ports??used for procedure. ??Patient tolerated procedure well.?? documented in this encounter Plan of Treatment Upcoming Encounters Date Type Department Care Team (Late st Contact Info) Description 09/14/2024 3:00 PM CDT Office Visit [facility] Heart and Vascular - [facility] [address] [place] [address] Marlys Mayer MD [address] [place] [address] documented as of this encounter Procedures Procedure Name Priority Date/Time Associated Diagnosis Comments CBC WITHOUT DIFFERENTIAL Stat 09/15/2020 1:30 PM CDT Hypertriglyceridemi a TRIGLYCERIDE Routine 09/15/2020 1:30 PM CDT Hypertriglyceridemi a documented in this encounter Results * (ABNORMAL) CBC WITHOUT DIFFERENTIAL (09/15/2020 1:30 PM CDT) WBC 9.0 4.0 - 9.8 K/uL 09/15/2020 1:35 PM [facility]T [facility] RBC 4.49 3.90 - 4.90 M/uL 09/15/2020 1:35 PM CDT [facility] LABORATORY SERVICES - [facility] HEMOGLOBIN 13.1 11.8 - 14.8 g/dL 09/15/2020 1:35 PM CDT [facility] LABORATORY SERVICES - [facility] HEMATOCRIT 40.2 35.5 - 44.0 % 09/15/2020 1:35 PM CDT [facility] LABORATORY SERVICES - [facility] MCV 89.5 82.0 - 99.0 fL 09/15/2020 1:35 PM CDT [facility] MCH 29.2 27.2 - 32.6 pg 09/15/2020 1:35 PM CDT [facility] LABORATORY SERVICES - [facility] MCHC 32.6 31.5 - 35.5 g/dL 09/15/2020 1:35 PM CDT [facility] LABORATORY SERVICES - [facility] PLATELETS 264 140 - 350 K/uL 09/15/2020 1:35 PM CDT [facility] MPV 9.1(L) 9.3 - 12.4 fL 09/15/2020 1:35 PM CDT [facility] LABORATORY SERVICES - [facility] RDW 14.0 11.5 - 14.5 % 09/15/2020 1:35 PM CDT [facility] LABORATORY [facility] RDW-STDEV 45.2 37.1 - 48.7 fL 09/15/2020 1:35 PM CDT [facility] LABORATORY [facility] Blood Venipuncture / Unknown 09/15/2020 1:30 PM CDT 09/15/2020 1:32 PM CDT Alize Arteaga MD HEMATOLOGY ORDE RABLES [facility]# [id number] [address] [place] [address] * (ABNORMAL) TRIGLYCERIDE (09/15/2020 1:30 PM CDT) TRIGLYCERIDE 975(H) <150 mg/dL 09/15/2020 2:41 PM CDT [facility] LABORATORY [facility] Blood Venipuncture / Unknown 09/15/2020 1:30 PM CDT 09/15/2020 1:32 PM CDT Narrative [facility] LABORATORY [facility] - 09/15/2020 2:41 PM CDT TRIGLYCERIDES ? mg/dL Normal ?< 150 Borderline High ?150 - 199 High ? 200 - 499 Very High ? >= 500 Based on AHA/NCEP Guidelines. Alize Arteaga MD CHEMISTRY ORDER OSVALDO Performing Organization Address City/[facility]/ZIP Co de Phone Number [facility]# [id number] [address] [place] [address] documented in this encounter Visit Diagnoses Diagnosis [...] documented as of this encounter Care Teams Phlebotomy Support Tech Relationship Specialty Start Date End Date Guerrero Middleton PA-C PCP - General Physician Waistband Setter 02/13/18 documented as of this encounter
--- OUTSIDE RECORDS SUMMARY | 2024-05-03 21:52 | XMS_ITS | Encounter Summary ---
Author Organization [facility] Address [address] Orozco: Epic Prelude ADT [place] [address] Care Team Providers Care Membership Director Name Role Phone Guerrero Middleton PA-C [...] often do you attend [facility] or moravian services? Never 08/21/2018 Do [...] [facility] [address] [place] [address] Marlys Mayer MD [address] [place] [address] documented as of this encounter Visit Diagnoses Not on filedocumented in this encounter Additional Health Concerns Assessment Noted Time PHQ-9 Depression Total Score: 1 08/11/19 6:30 PM CDT documented as of this encounter Care Teams Membership Director Relationship Specialty Start Date End Date Guerrero Middleton PA-C PCP - General Physician Mold Unloader 02/13/18 documented as of this encounter
--- OUTSIDE RECORDS SUMMARY | 2024-05-03 21:52 | XMS_ITS | Encounter Summary ---
Author Organization [facility] Address [address] [place] [address] Care Team Providers Care Public Health Technologist Name Role Phone Guerrero Middleton PA-C Primary Care Provide r Encounter Details Date Type Department Care Team (Latest Contact Info) Description 11/09/2020 11:59 PM CDT Hospital Encounter [facility] Donor Services [facility] [address] [place] [address] Alize Arteaga MD NO ADDRESS [...] the procedure. ?? Alize Arteaga MD, PhD Geology Professor, therapeutic apheresis service [phone] ?? Procedure??notes:?L and??R bard ports??used for procedure. ??Patient tolerated procedure well. documented in this encounter Plan of Treatment Upcoming Encounters Date Type Department Care Team (Late st Contact Info) Description 09/14/2024 3:00 PM CDT Office Visit [facility] Heart and Vascular - [facility] [address] [place] [address] Marlys Mayer MD [address] [place] [address] documented as of this encounter Procedures Procedure [...] - 145 mmol/L 11/09/2020 11:02 AM T [facility] SERVICES - . [facility] POTASSIUM 4.0 3.5 - 5.0 mmol/L 11/09/2020 11:02 AM T [facility] CHLORIDE 99 98 - 107 mmol/L 11/09/2020 11:02 AM [facility] CO2 21(L) 22 - 29 mmol/L 11/09/2020 11:02 AM T [facility] - [facility] CALCIUM 8.6 8.6 - 10.2 mg/dL 11/09/2020 11:02 AM T [facility] - [facility] BUN 9 6 - 20 mg/dL 11/09/2020 11:02 AM T [facility] LABORATORY SERVICES - . [facility] CREATININE 0.39(L) 0.51 - 0.95 mg/dL 11/09/2020 11:02 AM T [facility] LABORATORY SERVICES - . [facility] GLUCOSE 182(H) 74 - 99 mg/dL 11/09/2020 11:02 AM T [facility] LABORATORY SERVICES - [facility] GFR >60 mL/min/1.7 3 sq meter 11/09/2020 11:02 AM CDT [facility] Comment: eGFR has not been validated [...] 3 sq meter 11/09/2020 11:02 AM T [facility] SERVICES - [facility] ANION GAP 14 8 - 16 mmol/L 11/09/2020 11:02 AM T [facility] - [facility] Blood Venipuncture / Unknown 11/09/2020 9:59 AM CDT 11/09/2020 10:26 AM CDT Prudence Gates MD CHEMISTRY ORDERAB LES [facility] [email or web address] SERVICES [facility]# [id number] [address] [place] [address] * (ABNORMAL) CBC WITHOUT DIFFERENTIAL (11/09/2020 9:59 AM CDT) WBC 9.3 4.0 - 9.8 K/uL 11/09/2020 10:31 AM CDT [facility] RBC 4.79 3.90 - 4.90 M/uL 11/09/2020 10:31 AM T [facility] SERVICES - [facility] HEMOGLOBIN 14.2 11.8 - 14.8 g/dL 11/09/2020 10:31 AM CDT [facility] - [facility] HEMATOCRIT 42.1 35.5 - 44.0 % 11/09/2020 10:31 AM T [facility] SERVICES - [facility] MCV 87.9 82.0 - 99.0 fL 11/09/2020 10:31 AM CDT [facility] LABORATORY SERVICES - [facility] MCH 29.6 27.2 - 32.6 pg 11/09/2020 10:31 AM CDT [facility] LABORATORY SERVICES - [facility] MCHC 33.7 31.5 - 35.5 g/dL 11/09/2020 10:31 AM CDT [facility] LABORATORY SERVICES - [facility] PLATELETS 254 140 - 350 K/uL 11/09/2020 10:31 AM CDT [facility] LABORATORY SERVICES - [facility] MPV 9.1(L) 9.3 - 12.4 fL 11/09/2020 10:31 AM CDT [facility] LABORATORY SERVICES - [facility] RDW 14.4 11.5 - 14.5 % 11/09/2020 10:31 AM CDT [facility] LABORATORY SERVICES - [facility] RDW-STDEV 46.4 37.1 - 48.7 fL 11/09/2020 10:31 AM CDT [facility] LABORATORY SERVICES - [facility] Blood Venipuncture / Unknown 11/09/2020 9:59 AM CDT 11/09/2020 10:26 AM CDT Alize Arteaga MD HEMATOLOGY ORDE [facility] Organization Address City/State/ZIP Co de Phone Number [facility] [email or web address] [facility]# [id number] [address] [facility] [place] [address] * (ABNORMAL) TRIGLYCERIDE (11/09/2020 9:59 AM CDT) TRIGLYCERIDE 2,076(H) <150 mg/dL 11/09/2020 11:22 AM CDT [facility] [email or web address] SERVICES - [facility] Blood Venipuncture / Unknown 11/09/2020 9:59 AM CDT 11/09/2020 10:26 AM CDT Narrative [facility] LABORATORY [facility] - [facility] - 11/09/2020 11:22 AM CDT TRIGLYCERIDES ? mg/dL Normal ?< 150 Borderline High ?150 - 199 High ? 200 - 499 Very High ? >= 500 Based on AHA/NCEP Guidelines. Alize Arteaga MD CHEMISTRY ORDER OSVALDO [facility] SERVICES - [facility]# [id number] [address] [facility] [place] [address] documented in this encounter Visit Diagnoses Diagnosis [...] documented as of this encounter Care Teams Public Health Technologist Relationship Specialty Start Date End Date Guerrero Middleton PA-C PCP - General Physician Office Bookkeeper 02/13/18 documented as of this encounter
--- OUTSIDE RECORDS SUMMARY | 2024-05-03 21:52 | XMS_ITS | Encounter Summary ---
Author Organization [facility] Address [address] [place] [address] Care Team Providers Care Piano Maker Name Role Phone Guerrero Middleton PA-C Primary Care Provide r Encounter Details Date Type Department Care Team (Latest Contact Info) Description 12/07/2020 9:30 AM CDT - 12/07/2020 11:59 PM CDT Hospital Encounter [facility] Donor Services [address] [address] Alize Arteaga MD NO ADDRESS ON FILE Nicole Rosas MD [address] [place] [address] Discharge Disposition: Home or Self Care [...] tablet TAKE 1 TABLET BY MOUTH EVERY FRUIT FARMWORKER 30 Tablet 5 12/07/2020 06/01/2021 Vascepa 1 [...] throughout the procedure. ?? Nicole Mondragon MD Rattle Leak And Squeak Repairer, therapeutic apheresis service [phone] ?? Procedure??notes: R bard port without blood [...] [facility] - [facility] [address] [place] [address] Marlys Mayer MD [address] [place], [place] [address] documented as of this encounter Procedures Procedure Name Priority Date/Time Associated Diagnosis Comments TRIGLYCERIDE Routine 12/07/2020 10:00 AM CDT Hypertriglyceridemia documented in this encounter Results * (ABNORMAL) TRIGLYCERIDE (12/07/2020 10:00 AM CDT) TRIGLYCERIDE 3,252(H) <150 mg/dL 12/07/2020 11:11 AM CDT [facility] Blood Venipuncture / Unknown 12/07/2020 10:00 AM CDT 12/07/2020 10:18 AM CDT Narrative [facility] LABORATORY [facility] - 12/07/2020 11:11 AM CDT TRIGLYCERIDES ? mg/dL Normal ?< 150 Borderline High ?150 - 199 High ? 200 - 499 Very High ? >= 500 Based on AHA/NCEP Guidelines. Nicole Rosas MD CHEMISTRY YONI SERRANO [facility] [employer] [facility] CLIA# [id number] [address] [place] [address] documented in this encounter Visit Diagnoses Diagnosis [...] documented as of this encounter Care Teams Piano Maker Relationship Specialty Start Date End Date Guerrero Middleton PA-C PCP - General Physician Building And Grounds Supervisor 02/13/18 documented as of this encounter
--- OUTSIDE RECORDS SUMMARY | 2024-05-03 21:52 | XMS_ITS | Encounter Summary ---
Author Organization [facility] Address [address] [place] [address] Care Team Providers Care Map Editor Name Role Phone Guerrero Middleton PA-C Primary Care Provide r Reason for Visit * Reason Comments Erroneous encounter-disregard Encounter Details Date Type Department Care Team (Late st Contact Info) Description 11/09/2020 9:00 AM CDT [facility]ology [address] [place] [address] Uncontrolled type 2 diabetes mellitus [...] Description 09/14/2024 3:00 PM CDT [facility] Visit [facility] - [facility] [address] [place] [address] Marlys Mayer MD [address] [place] [address] documented as of this encounter Results * (ABNORMAL) BASIC METABOLIC PANEL (11/09/2020 9:59 AM CDT) SODIUM 134(L) 136 - 145 mmol/L 11/09/2020 11:02 AM T [facility] LAB[facility]ATORY SERVICES [facility] POTASSIUM 4.0 3.5 - 5.0 mmol/L 11/09/2020 11:02 AM T [facility] LABORATORY SERVICES - [facility] CHLORIDE 99 98 - 107 mmol/L 11/09/2020 11:02 AM [facility] CO2 21(L) 22 - 29 mmol/L 11/09/2020 11:02 AM [facility] [employer] LABORATORY SERVICES - . [facility] CALCIUM 8.6 8.6 - 10.2 mg/dL 11/09/2020 11:02 AM T [facility]ATORY SERVICES - [facility] BUN 9 6 - 20 mg/dL 11/09/2020 11:02 AM T [facility] LABORATORY SERVICES - . [facility] CREATININE 0.39(L) 0.51 - 0.95 mg/dL 11/09/2020 11:02 AM [facility] LABORATORY SERVICES - . [facility] GLUCOSE 182(H) 74 - 99 mg/dL 11/09/2020 11:02 AM [facility] LABORATORY SERVICES - . [facility] GFR >60 mL/min/1.7 3 sq meter 11/09/2020 11:02 AM [facility] [employer] LABORATORY SERVICES - . [facility] Comment: eGFR [...] 3 sq meter 11/09/2020 11:02 AM CDT [facility] LABORATORY SERVICES - [facility] ANION GAP 14 8 - 16 mmol/L 11/09/2020 11:02 AM CDT [facility] LABORATORY SERVICES - [facility] Blood Venipuncture / Unknown 11/09/2020 9:59 AM CDT 11/09/2020 10:26 AM CDT Prudence Gates MD CHEMISTRY ORDERAB LES [facility] LABORATORY SERVICES [facility] CLIA# [id number] [address] [place] [place] [address] documented in this encounter Visit Diagnoses Diagnosis Uncontrolled type 2 diabetes mellitus with insulin therapy- Primary Type II or unspecified type diabetes mellitus without mention of complication, uncontrolled documented in this encounter Additional Health Concerns Assessment Noted Time PHQ-9 Depression Total Score: 1 08/11/19 21 6:30 PM CDT documented as of this encounter Care Teams Map Editor Relationship Specialty Start Date End Date Guerrero Middleton PA-C PCP - General Physician Stack Yield Engineer 02/13/18 documented as of this encounter
--- OUTSIDE RECORDS SUMMARY | 2024-05-03 21:52 | XMS_ITS | Encounter Summary ---
Author Organization [facility] Address [address] Orozco: Epic Prelude ADT [place] [address] Care Team Providers Care Diesel Machinist Name Role Phone Guerrero Middleton PA-C Primary [...] How often do you attend [facility] or jew services? Never 08/21/2018 Do [...] [facility] [address] [place] [address] Marlys Mayer MD [address] [place] [address] documented as of this encounter Visit Diagnoses Not on filedocumented in this encounter Additional Health Concerns Assessment Noted Time PHQ-9 Depression Total Score: 1 08/11/19 21 6:30 PM CDT documented as of this encounter Care Teams Diesel Machinist Relationship Specialty Start Date End Date Guerrero Middleton PA-C PCP - General Physician Process Control Specialist 02/13/18 documented as of this encounter
--- OUTSIDE RECORDS SUMMARY | 2024-05-03 21:52 | XMS_ITS | Encounter Summary ---
Author Organization [facility] Address [address] [place] [address] Care Team Providers Care Plush Weaver Name Role Phone Guerrero Middleton PA-C Primary Care Provide r Encounter Details Date Type Department Care Team (Latest Contact Info) Description 09/15/2020 11:20 AM CDT - 09/15/2020 11:59 PM T Hospital Encounter [facility] Imaging Services [facility] [address] [place] [phone] Prudence Gates MD [address] [place] [address] Discharge Disposition: Home or Self Care Social [...] [facility] Heart and Vascular - [facility] [address] [place] [address] Marlys Mayer MD [address] [place] [address] documented as of this encounter Procedures Procedure [...] radiographs in 7-10 days. DICTATION LOCATION: Location [address] [place] [address] Narrative 09/15/2020 2:11 PM CDT XR HAND [...] follow-up radiographs in 7-10 days. DICTATION LOCATION: [address] Prudence Gates MD DIAGNOSTIC IMAGIN G [...] documented as of this encounter Care Teams Plush Weaver Relationship Specialty Start Date End Date Guerrero Middleton PA-C PCP - General Physician Inform[employer]a 02/13/18 documented as of this encounter
--- OUTSIDE RECORDS SUMMARY | 2024-05-03 21:52 | XMS_ITS | Encounter Summary ---
Author Organization [facility] Address [address] [place] [address] Care Team Providers Care Window Machine Operator Name Role Phone Guerrero Middleton [...] By Contac t Referred To Contact Oncology [facility] Oncology [address] [place] [address] Referral ID Status Reason Start Date Expiration Date Visits Re quested Visits Authorized [id number] 1 1 Encounter Details Date Type Department Care Team (Late st Contact Info) Description 07/10/2020 7:51 PM CDT - 07/12/2020 4:12 PM CDT Emergency [facility] Oncology [address] [place] [address] Eliel Duran MD NO ADDRESS ON FILE Loki Vences MD [address] [place] [address] Leonel Valadez DO [address] [place] [address] Puja Pagan MD [address] [facility] [address] [place] [phone] Recurrent pancreatitis Discharge Disposition: Home or Self [...] from the original note were not included. [facility] Adult Discharge Summary Linda Doss 44 y.o. female 1975 CSN: [id number] Date of Admission: 07/10/2020 Date of Discharge: [...] hypertriglyceridemia, chylomicronemia and recurrent pancreatitis presented to [facility] ED 06/12/2020 with abdominal pain for 2 [...] apheresis. Pain control was achieved by continue CROSSING GUARD oxycodone 10 mg every 4h prn & [...] MD Quantity: 30 Tablet Refills: 6 Fish Oil-Howell-3 Fatty Acids 360-1,200 mg Capsule Take 2 [...] Your Medications These medications were sent to [address] [place] [id number] Hours: Retail 8 AM - 12 AM [...] Information Primary Emergency Contact: José Miguel Doss [facility] Mobile Relation: Spouse Signed: Alber Rod MD 07/12/2020, 3:28 PM Associated attestation - Puja Pagan MD - 07/12/2020 4:09 PM CDT [facility] Adult Hospitalist Attending Note Patient seen and examined with the resident team (Dr. Rod) on 07/12/2020. I have reviewed the noteas written and agree with the assessment and plan with the exceptions, if any, noted below. Objective: NAD, lungs clear, heart regular, ab soft, mildly tender to epigastric area, no leg edema Assessment/Plan: Acute pancreatitis due to hypertriglyceridemia - Tolerating diet and CROSSING GUARD meds - OP lipid pheresis scheduled More than 35 minutes were spent in the care of this patient today; more than 50% was spent in discussion of expected course of disease, discussion of prognosis, discharge planning, coordination of care and discussion of lab and test results. Puja Pagan MD [facility] Hospitalist Please page the resident team via the eList. documented in this encounter Discharge Instructions * Discharge Instructions* Alber Rod MD - 07/12/2020 2:49 PM CDT Drink plenty of fluids and take Tylenol as needed Your discharging physicians are Puja Pagan MD /Alber Rod MD and may be reached at [phone] for any questions or concerns until you [...] sent through Care Everywhere. * Abdominal Pain (Gambian) * Diabetes: Counting Carbohydrates (Gambian) * Pancreatitis: Chronic Diet (Gambian) * Statins: Diabetes: General Info (Gambian) documented in this encounter Medications at Time [...] wound care services. 5. Is a medical record retrieval specialist in place?no If yes, remove device/brace/splint [...] etc.). Wound care consult was not initiated. [facility] Skin Care Injury Prevention and Treatment Protocol [facility] Approved by: [facility] - Medical Executive Committee Approval Date: [...] Rod MD - 07/11/2020 8:28 AM CDT [facility] Internal Medicine Teaching Service History & Physical Patient Name: Linda Doss Attending Physician: Leonel Valadez DO Primary Care Provider: Guerrero Middleton PA-C Date of Admission: 07/10/2020 Date of Service: 07/11/2020 Chief Complaint: Abdominal pain HPI: Linda Doss is a 44 y.o. female with PMH of familial hypertriglyceridemia, chylomicronemia and recurrent pancreatitis presented to [facility] ED 06/12/2020 with abdominal pain that started2 [...] performed by Ceasar Vega MD at [facility] GI LAB Prior to Admission Medications: [...] GLUCOSE 153 (H) 74 - 99 mg/dL REMOTE SENSING TECHNICIAN NAME UYEN HILL Assessment and Plan: Abdominal [...] during last hospitalization with a pheresis. Continue CROSSING GUARD oxycodone 10 mg every 4h as needed and add IV Dilaudid 0.5 every 3 H for breakthrough pain Continue CROSSING GUARD fenofibrate, Vascepa and statin. Check daily TG levels. Hypothyroidism-continue Synthroid from CROSSING GUARD. Tobacco use-cessation counseling Type 2 diabetes mellitus: Patient on Lantus 32 every morning and 35 every afternoon & sliding scale CROSSING GUARD. Start patient on Lantus 36 twice daily MD TORRES. GERD (gastroesophageal reflux disease): continue CROSSING GUARD PPI MDD : Continue CROSSING GUARD Celexa and Ativan DVT PRX:Enoxaparin Indwelling Lines/Devices: [...] This note may have been transcribed using [email or web address] speaking computerized voice recognition without a human guncotton packer. This report may or may not have been adjusted for typographical, grammatical and syntax errors. This patient is covered by Internal Medicine residents To reach Internal Medicine covered patients: Saturday-Saturday 7 AM- 7 PM: Please contact the resident via secure chat. The resident responsible for the patient will be on the Treatment Team listed as Resident If no response you may call the title one reading teacher r d intern at zone phone [phone]. If no response you may call the title one reading teacher senior resident at zone phone [phone] If no response please contact the attending of record via secure chat. 7 PM to 7 AM: The long call/night float resident should be listed as Resident on the treatment team and can be reached via secure chat. If no response you may call the title one reading teacher r d intern at zone phone [phone]. If no response you may call the title one reading teacher senior resident at zone phone [phone] If no response please contact the Rapid [...] secure chat. If no response call the title one reading teacher r d intern at zone phone [phone]. If no response you may call the title one reading teacher senior resident at zone phone [phone] If no response please contact the Rapid [facility] Hospitalist via secure chat Associated attestation - Leonel Valadez DO - 07/11/2020 12:15 PM CDT [facility] Adult Hospitalist Attending Note Patient seen and [...] hypotension with previous apheresis. Leonel Valadez DO [facility] Adult Hospitalist Please contact assigned resident via [employer] secure messaging. documented in this encounter ED Notes * Eduarda Morrison RN - 07/11/2020 1:37 AM CDT manager quality improvement called and made aware of ready bed. [...] bag. Pt is on a full cardiac rn, NiBP, and pulse ox. * Hayes Garsia [...] pancreatic tail. DICTATION LOCATION: Location 1 - [facility] EKG: Normal sinus rhythm. Rate is 98. [...] not want to go home. Discussed with [facility] hospitalist Dr. Vences will admit for pain [...] EVERY DAY Qty: 90 Tablet, Refills: 1 WinningAdvantage G6 Sensor Device Change sensor every 10 [...] 40 mg by mouth daily at bedtime. WinningAdvantage G6 Transmitter Device Change transmitter every 90 [...] for discharge planning. Kathy Kumar RN, BSN Neurocritical Care Physician [phone] * Care Plan - Uyen Hill RN [...] [facility] Heart and Vascular - [facility] [address] [place] [address] Marlys Mayer MD [address] [place] [address] documented as of this encounter [...] - 99 mg/dL 07/12/2020 2:38 PM CDT [facility] LABORATORY SERVICES - [facility] COMMENT, GLU POC Notified RN/ 07/12/2020 2:38 PM CDT [facility]ORY SERVICES - [facility] REMOTE SENSING TECHNICIAN NAME POC SONAL BLAKE 07/12/2020 2:38 PM CDT [facility]ORY SERVICES - [facility] Blood, whole 07/12/2020 2:38 PM CDT 07/12/2020 2:48 PM CDT Puja Pagan MD POINT OF CARE TESTIN Maggie Performing Organization Address City/[facility]/ZIP Co de Phone Number [facility] LABORATORY [facility] CLIA# [id number] [address] [place] [address] * POC GLUCOSE (07/12/2020 9:04 AM CDT) GLUCOSE POC 84 74 - 99 mg/dL 07/12/2020 9:04 AM CDT [facility]ORY SERVICES - [facility] COMMENT, GLU POC Notified RN/ 07/12/2020 9:04 AM CDT [facility]ORY SERVICES - [facility] REMOTE SENSING TECHNICIAN NAME POC HETAL HERNANDEZ 07/12/2020 9:04 AM CDT [facility] SERVICES - [facility] Blood, whole 07/12/2020 9:04 AM CDT 07/12/2020 9:11 AM CDT Puja Pagan MD POINT OF CARE TESTIN Maggie [facility] LAB[facility]ATORY [facility] CLIA# [id number] [address] [place] [address] * (ABNORMAL) HEMOGLOBIN A1C (07/12/2020 5:00 AM CDT) HEMOGLOBIN A1C 9.2(H) <5.7 % 07/12/2020 8:24 AM CDT [facility] - [facility] EST. AVG GLUCOSE, A1C 217 mg/dL 07/12/2020 8:24 AM CDT [facility] - [facility] Blood Venipuncture / Unknown 07/12/2020 5:00 AM CDT 07/12/2020 7:03 AM CDT Narrative [facility] SERVICES - [facility] - 07/12/2020 8:24 AM CDT HGB A1C INTERPRETATION NORMAL: ? <5.7% PRE-DIABETES: 5.7 - 6.4% DIABETES: ? 6.5% OR GREATER Leonel Valadez DO CHEMISTRY ORDERABLES [facility] LABORATORY SERVICES [facility]# [id number] [address] [place] [address] * (ABNORMAL) CBC WITH DIFFERENTIAL (07/12/2020 5:00 AM CDT) Pathologist [facility] WBC 6.1 4.0 - 9.8 K/uL 07/12/2020 7:11 AM CDT [facility] - [facility] RBC 4.11 3.90 - 4.90 M/uL 07/12/2020 7:11 AM T [facility] HEMOGLOBIN 11.8 11.8 - 14.8 g/dL 07/12/2020 7:11 AM CDT [facility] SERVICES - [facility] HEMATOCRIT 37.8 35.5 - 44.0 % 07/12/2020 7:11 AM CDT [facility] SERVICES - [facility] MCV 92.0 82.0 - 99.0 fL 07/12/2020 7:11 AM CDT [facility] - [facility] MCH 28.7 27.2 - 32.6 pg 07/12/2020 7:11 AM CDT [facility] LABORATORY SERVICES [facility] MCHC 31.2(L) 31.5 - 35.5 g/dL 07/12/2020 7:11 AM CDT [facility] RDW 13.8 11.5 - 14.5 % 07/12/2020 7:11 AM CDT [facility]ATORY SERVICES - [facility] RDW-STDEV 47.0 37.1 - 48.7 fL 07/12/2020 7:11 AM CDT [facility] PLATELETS 209 140 - 350 K/uL 07/12/2020 7:11 AM CDT [facility] MPV 9.7 9.3 - 12.4 fL 07/12/2020 7:11 AM CDT [facility] NEUTROPHILS 46 % 07/12/2020 7:11 AM CDT [facility] LYMPHOCYTES 46 % 07/12/2020 7:11 AM CDT [facility] MONOCYTES 6 % 07/12/2020 7:11 AM CDT [facility] EOSINOPHILS 1 % 07/12/2020 7:11 AM [employer] [facility] BASOPHILS 1 % 07/12/2020 7:11 AM [employer] [facility] IMMATURE GRANULOCYTES 1 % 07/12/2020 7:11 AM [employer] [facility] Comment:IG (Immature Granulo cyte) count includes Metamyelocytes, Myelocytes, and Promyelocytes NEUTROPHIL ABSOLUTE 2.81 1.90 - 7.00 K/uL 07/12/2020 7:11 AM [employer] [facility] LYMPHOCYTE ABSOLUTE 2.79 0.70 - 4.50 K/uL 07/12/2020 7:11 AM [employer] [facility] MONOCYTE ABSOLUTE 0.36 0.10 - 1.30 K/uL 07/12/2020 7:11 AM CDT [facility] EOSINOPHIL ABSOLUTE 0.08 0.00 - 0.70 K/uL 07/12/2020 7:11 AM CDT [facility] BASOPHILS ABSOLUTE 0.03 0.00 - 0.20 K/uL 07/12/2020 7:11 AM CDT [facility] IMMATURE GRANULOCYTES ABSOLUTE 0.03 0.00 - 0.03 K/uL 07/12/2020 7:11 AM [facility] [facility] LABORATORY SERVICES - [facility] Blood Venipuncture / Unknown 07/12/2020 5:00 AM CDT 07/12/2020 7:03 AM CDT Leonel Valadez DO HEMATOLOGY ORDERABLE S Performing Organization Address [facility]/ZIP Co de Phone Number [facility]# [id number] [address] [place] [address] * (ABNORMAL) TRIGLYCERIDE (07/12/2020 5:00 AM CDT) TRIGLYCERIDE 518(H) <150 mg/dL 07/12/2020 7:50 AM CDT [facility] Blood Venipuncture / Unknown 07/12/2020 5:00 AM CDT 07/12/2020 7:02 AM CDT Narrative [facility] LABORATORY [facility] - 07/12/2020 7:50 AM CDT TRIGLYCERIDES ? mg/dL Normal ?< 150 Borderline High ?150 - 199 High ? 200 - 499 Very High ? >= 500 Based on AHA/NCEP Guidelines. Leonel Valadez DO CHEMISTRY ORDERABLES Performing Organization Address [facility] Co de Phone Number [facility] [employer] [facility]# [id number] [address] [place] [address] * (ABNORMAL) POC GLUCOSE (07/11/2020 10:20 PM CDT) GLUCOSE POC 135(H) 74 - 99 mg/dL 07/11/2020 10:20 PM [address] [facility] LAB[facility]ATORY [facility] REMOTE SENSING TECHNICIAN NAME POC ROSANNE TOTH 07/11/2020 10:20 PM [address] [facility] LABORATORY [facility] Blood, whole 07/11/2020 10:2 0 PM CDT 07/11/2020 10:29 PM CDT Leonel Valadez DO POINT OF CARE FLY Serrano [facility] LABORATORY [facility] CLIA# [id number] [address] [place] [address] * (ABNORMAL) POC GLUCOSE (07/11/2020 5:03 PM CDT) GLUCOSE POC 109(H) 74 - 99 mg/dL 07/11/2020 5:03 PM CDT [facility] LABORATORY [facility] REMOTE SENSING TECHNICIAN NAME POC UYEN HILL 07/11/2020 5:03 PM CDT [facility] LABORATORY SERVICES [facility] Blood, whole 07/11/2020 5:03 PM CDT 07/11/2020 5:16 PM CDT Leonel Valadez DO POINT OF CARE TESTJERONIMO Serrano Performing Organization Address [facility]/ZIP Co de Phone Number [facility] CLIA# [id number] [address] [place] [address] * (ABNORMAL) POC GLUCOSE (07/11/2020 12:47 PM CDT) GLUCOSE POC 238(H) 74 - 99 mg/dL 07/11/2020 12:47 PM CDT [facility] LABORATORY SERVICES [facility] REMOTE SENSING TECHNICIAN NAME POC ANURADHA POLANCO 07/11/2020 12:47 PM CDT [facility] LABORATORY SERVICES [facility] Blood, whole 07/11/2020 12:4 7 PM CDT 07/11/2020 12:55 PM CDT Leonel Valadez DO POINT OF CARE FLY Serrano Performing Organization Address City/[facility]/ZIP Co de Phone Number [facility] LABORATORY [facility] CLIA# [id number] [address] [place] [address] * (ABNORMAL) POC GLUCOSE (07/11/2020 10:28 AM CDT) GLUCOSE POC 153(H) 74 - 99 mg/dL 07/11/2020 10:28 AM CDT [facility] LABORATORY [facility] REMOTE SENSING TECHNICIAN NAME POC UYEN HILL 07/11/2020 10:28 AM CDT [facility] LABORATORY [facility] Blood, whole 07/11/2020 10:2 8 AM CDT 07/11/2020 10:35 AM CDT Leonel Valadez DO POINT OF CARE TESTIN G [facility] CLIA# [id number] [address] [place] [address] * CT ABDOMEN PELVIS W CONTRAST (07/10/2020 10:37 PM CDT) Anatomical Region Laterality Modality Abdomen Computed Tomogra phy 07/10/2020 10:3 8 PM CDT Impressions 07/10/2020 10:52 PM CDT IMPRESSION: 1. No acute abnormality in the abdomen or pelvis. 2. Resolution of peripancreatic inflammatory changes. Resolution of low-density focus in the pancreatic tail. DICTATION LOCATION: Location 1 - [facility] Narrative 07/10/2020 10:52 PM CDT EXAM: ??CT [...] the pancreatic tail. DICTATION LOCATION: Location - [facility] Eliel Duran MD CT ORDERABLES * (ABNORMAL) URINALYSIS WITH REFLEX MICROSCOPIC (07/10/2020 8:29 PM CDT) COLOR UA Pale Yellow Pale to Dark Yellow 07/10/2020 9:09 PM CDT [facility] LAB[facility]ATORY SERVICES - . [facility] CLARITY UA Clear Clear 07/10/2020 9:09 PM CDT [facility] LABORATORY SERVICES - . [facility] SPECIFIC GRAVITY UA 1.027 1.003 - 1.035 07/10/2020 9:09 PM CDT [facility] LABORATORY SERVICES - [facility] PH UA 7.0 5.0 - 8.0 07/10/2020 9:09 PM CDT [facility] LABORATORY SERVICES - [facility] LEUKOCYTE ESTERASE UA Negative Negative 07/10/2020 9:09 PM CD[address] [facility] LABORATORY SERVICES - . [facility] NITRITE UA Negative Negative 07/10/2020 9:09 PM CDT [facility] LABORATORY SERVICES - [facility] PROTEIN UA Negative Negative 07/10/2020 9:09 PM CDT [facility] LABORATORY SERVICES - [facility] GLUCOSE UA 3+(A) Negative 07/10/2020 9:09 PM CDT [facility] LABORATORY SERVICES - [facility] KETONES UA Negative Negative 07/10/2020 9:09 PM CDT [facility] LABORATORY SERVICES - [facility] UROBILINOGEN UA Normal <2.0 mg/dL 9:09 PM CDT [facility] LABORATORY SERVICES - [facility] BILIRUBIN UA Negative Negative 07/10/2020 9:09 PM CDT [facility] LAB[facility]ATORY SERVICES - [facility] BLOOD UA Negative Negative 07/10/2020 9:09 PM CDT [facility] LAB[facility]ATORY SERVICES - [facility] Urine URINE SPECIMEN OBTAINED BY CLEAN CATCH PROCEDURE / Unknown Collection / Unknown 07/10/2020 8:29 PM CDT 07/10/2020 8:48 PM CDT Eliel Duran MD URINE ORDERABLES [facility] LABORATORY SERVICES - [facility] CLIA# [id number] [facility] [place] [address] * EKG 12-LEAD (07/10/2020 8:19 PM CDT) 07/10/2020 8:19 PM CDT Narrative INTERFACE SYSTEM - 07/11/2020 7:55 AM CDT ? Stationary ECG Study ? [facility] ? Test Date: ?07/10/2020 8:19 PM Pat Name: ? LINDA DOSS ?Department: ?? 42 ?Room: ? 5302 Gender: ? F ?Framer: ?? rollm1 : ?1975 ? Requested By: ELIEL DURAN Order Number: [id number] ?Reading MD: ?? Malcom Blackburn ? Measurements Intervals ?[place] ? Rate: ? 98 ? P: ?49 NV: ? 149 ?QRS: ?52 QRSD: ? 87 ? T: ?-19 QT: ? 353 ? QTc: ?451 ? Interpretive Statements ? Sinus rhythm Probable left atrial enlargement Borderline T abnormalities, inferior leads Electronically Signed On 07-11-2020 7:55:27 CDT by Malcom Blackburn Procedure Note Malcom Blackburn MD - 07/11/2020 Stationary ECG Study [facility] Test Date: 07/10/2020 8:19 PM Pat Name: LINDA DOSS Department: 42 Room: 5302 Gender: F Framer: siva : 1975 Requested By: ELIEL DURAN Order Number: [id number] Reading MD: Malcom Blackburn Measurements Intervals [place] Rate: 98 P: 49 NV: 149 QRS: 52 QRSD: 87 T: -19 QT: 353 QTc: 451 Interpretive Statements Sinus rhythm Probable left atrial enlargement Borderline T abnormalities, inferior leads Electronically Signed On 07-11-2020 7:55:27 CDT by Malcom Blackburn Eliel Duran MD ECG ORDERABLES INTERFACE SYSTEM Refer to clinic/hospital department * (ABNORMAL) TRIGLYCERIDE (07/10/2020 8:08 PM CDT) TRIGLYCERIDE 2,094(H) <150 mg/dL 07/11/2020 3:50 AM CDT [facility] [employer] [facility] Blood Venipuncture / Unknown 07/10/2020 8:08 PM CDT 07/10/2020 8:15 PM CDT [facility] [employer] [facility] - 07/11/2020 3:50 AM CDT TRIGLYCERIDES ? mg/dL Normal ?< 150 Borderline High ?150 - 199 High ? 200 - 499 Very High ? >= 500 Based on AHA/NCEP Guidelines. Loki Vences MD CHEMISTRY ORDERABLES Performing Organization Address [facility] Co de Phone Number [facility] [employer] [facility]# [id number] [address] [place] [address] * (ABNORMAL) PROTIME-INR (07/10/2020 8:08 PM CDT) PROTIME 11.6(L) 12.7 - 15.1 Seconds 07/10/2020 8:41 PM [address] [facility] [employer] [facility] Comment:Verified by repeat a nalysis. INR 0.8(L) 0.9 - 1.1 07/10/2020 8:41 PM CD[address] [facility] [employer] [facility] Blood Venipuncture / Unknown 07/10/2020 8:08 PM CDT 07/10/2020 8:15 PM CDT Narrative [facility] - 07/10/2020 8:41 PM CDT INR Therapeutic Range: Adult: ?? 2.0 - 3.0 for pulmonary embolism or prophylaxis against venous ?thrombosis or systemic embolization. 2.0 - 3.0 for patients with tissue heart valves. 2.5 - 3.5 for patients with mechanical heart valves or post NE. Pediatric ??(12 years and under): 1.5 - [...] patients with mechanical heart valves or post NE. Pediatric ??(12 years and under): 1.5 - 3.0 Although the target range in children is not well established, ?INR values of 1.5 - 3.0 are recommended for most patients. ?Higher values have been used in children with prosthetic ?cardiac valves and hereditary clotting disorders. (<3 days) therapeutic ranges have not been established. Eliel Duran MD HEMATOLOGY ORDERABLE S [facility] CLIA# [id number] [address] [place] [address] * ETHANOL LEVEL (07/10/2020 8:08 PM CDT) ETHANOL <10.00 <10.00 mg/dL 07/10/2020 8:44 PM CDT [facility] ETHANOL % <0.01 %w/v 07/10/2020 8:44 PM CDT [facility] LAB[facility]ATORY [facility] Blood Venipuncture / Unknown 07/10/2020 8:08 PM CDT 07/10/2020 8:15 PM CDT Eliel Duran MD CHEMISTRY ORDERABLES [facility] CLIA# [id number] [address], [place] [address] * LIPASE (07/10/2020 8:08 PM CDT) LIPASE 48 13 - 60 U/L 07/10/2020 8:44 PM CDT [facility] LAB[facility]ATORY [facility] Blood Venipuncture / Unknown 07/10/2020 8:08 PM CDT 07/10/2020 8:15 PM CDT Eliel Duran MD CHEMISTRY ORDERABLES [facility] CLIA# [id number] [address], [place] [address] * C-REACTIVE PROTEIN (07/10/2020 8:08 PM CDT) CRP <3.0 <5.0 mg/L 07/10/2020 8:44 PM CD[address] [facility] LAB[facility]ATORY [facility] Blood Venipuncture / Unknown 07/10/2020 8:08 PM CDT 07/10/2020 8:15 PM CDT Eliel Duran MD CHEMISTRY ORDERABLES [facility] CLIA# [id number] [address] [place] [address] * (ABNORMAL) COMPREHENSIVE METABOLIC PANEL (07/10/2020 8:08 PM CDT) [facility] SODIUM 136 136 - 145 mmol/L 07/10/2020 9:30 PM T [facility] LABORATORY SERVICES - [facility] POTASSIUM 4.4 3.5 - 5.0 mmol/L 07/10/2020 9:30 PM T [facility] - [facility] Comment:Slightly hemolyzed. Result may be falsely elevated. CHLORIDE 95(L) 98 - 107 mmol/L 07/10/2020 9:30 PM T [facility] - [facility] CO2 25 22 - 29 mmol/L 07/10/2020 9:30 PM T [facility] - [facility] CALCIUM 10.0 8.6 - 10.2 mg/dL 07/10/2020 9:30 PM [address] [facility] LAB[facility]ATORY SERVICES - [facility] BUN 14 6 - 20 mg/dL 07/10/2020 9:30 PM T [facility] [facility] CREATININE 0.70 0.51 - 0.95 mg/dL 07/10/2020 9:30 PM T [facility]AT[facility] SERVICES [facility] GLUCOSE 212(H) 74 - 99 mg/dL 07/10/2020 9:30 PM T [facility] TOTAL PROTEIN 7.3 6.7 - 8.6 g/dL 07/10/2020 9:30 PM [address] [facility] LABORATORY SERVICES - . [facility] ALBUMIN 4.5 3.5 - 5.2 g/dL 07/10/2020 9:30 PM T [facility] BILIRUBIN TOTAL 0.2(L) 0.3 - 1.2 mg/dL 07/10/2020 9:30 PM T [facility] ALKALINE PHOSPHATASE 77 35 - 104 U/L 07/10/2020 9:30 PM T [facility] LABORATORY SERVICES [facility] AST 20 <33 U/L 07/10/2020 9:30 PM T [facility] LABORATORY SERVICES - [facility] Comment: Hemolysis present. ??Result may be falsely elevated Cleared of chylomicrons. ALT 17 <34 U/L 07/10/2020 9:30 PM CDT [facility] LABORATORY SERVICES - [facility] Comment:Cleared of chylomicr ons. GFR >60 >=60 mL/min/1.7 3 sq meter 07/10/2020 9:30 PM CDT [facility] LABORATORY [facility] Comment: eGFR has not been validated [...] 3 sq meter 07/10/2020 9:30 PM CDT [facility] LABORATORY [facility] ANION GAP 16 8 - 16 mmol/L 07/10/2020 9:30 PM CDT [facility] LABORATORY [facility] Blood Venipuncture / Unknown 07/10/2020 8:08 PM CDT 07/10/2020 8:15 PM CDT Narrative [facility] LABORATORY [facility] - 07/10/2020 9:30 PM CDT Samples containing indocyanine green cause interferences on Total and/or Direct Bilirubin and must not be measured. Eliel Duran MD CHEMISTRY ORDERABLES [facility] Asterisk [facility]# [id number] [address] [facility] [place] [place] [address] * (ABNORMAL) CBC WITH DIFFERENTIAL (07/10/2020 8:08 PM CDT) WBC 10.4(H) 4.0 - 9.8 K/uL 07/10/2020 8:[address] [facility] LABORATORY [facility] RBC 5.00(H) 3.90 - 4.90 M/uL 07/10/2020 8:[address] [facility] LABORATORY [facility] HEMOGLOBIN 15.4(H) 11.8 - 14.8 g/dL 07/10/2020 8:20 PM CDT [facility] - [facility] HEMATOCRIT 44.3(H) 35.5 - 44.0 % 07/10/2020 8:20 PM CDT [facility] MCV 88.6 82.0 - 99.0 fL 07/10/2020 8:20 PM CDT [facility] MCH 30.8 27.2 - 32.6 pg 07/10/2020 8:20 PM CDT [facility] MCHC 34.8 31.5 - 35.5 g/dL 07/10/2020 8:20 PM CDT [facility] RDW 13.2 11.5 - 14.5 % 07/10/2020 8:20 PM CDT [facility] RDW-STDEV 43.1 37.1 - 48.7 fL 07/10/2020 8:20 PM CDT [facility] - [facility] PLATELETS 287 140 - 350 K/uL 07/10/2020 8:20 PM CDT [facility] - [facility] MPV 9.5 9.3 - 12.4 fL 07/10/2020 8:20 PM CDT [facility] - [facility] NEUTROPHILS 65 % 07/10/2020 8:20 PM CDT [facility] - [facility] LYMPHOCYTES 28 % 07/10/2020 8:20 PM CDT [facility] MONOCYTES 5 % 07/10/2020 8:20 PM CDT [facility] - [facility] EOSINOPHILS 1 % 07/10/2020 8:20 PM CDT [facility] - [facility] BASOPHILS 0 % 07/10/2020 8:20 PM CDT [facility] IMMATURE GRANULOCYTES 1 % 07/10/2020 8:20 PM CDT [facility] - . [facility] Comment:IG (Immature Granulo cyte) count includes Metamyelocytes, Myelocytes, and Promyelocytes NEUTROPHIL ABSOLUTE 6.79 1.90 - 7.00 K/uL 07/10/2020 8:20 PM CDT [facility] - . [facility] LYMPHOCYTE ABSOLUTE 2.94 0.70 - 4.50 K/uL 07/10/2020 8:20 PM CDT [facility] MONOCYTE ABSOLUTE 0.48 0.10 - 1.30 K/uL 07/10/2020 8:[address] [facility] LABORATORY SERVICES - [facility] EOSINOPHIL ABSOLUTE 0.11 0.00 - 0.70 K/uL 07/10/2020 8:[address] PM [address] [facility] LABORATORY SERVICES [facility] BASOPHILS ABSOLUTE 0.03 0.00 - 0.20 K/uL 07/10/2020 8:[address] [facility] LABORATORY SERVICES - . [facility] IMMATURE GRANULOCYTES ABSOLUTE 0.05(H) 0.00 - 0.03 K/uL 07/10/2020 8:[address] [facility] LABORATORY [facility] - . [facility] Blood Venipuncture / Unknown 07/10/2020 8:08 PM CDT 07/10/2020 8:15 PM CDT Eliel Duran MD HEMATOLOGY ORDERABLE S Performing Organization Address City/State/[facility] Co de Phone Number [facility] LABORATORY [facility]# [id number] [address] [place] [address] documented in this encounter Visit Diagnoses Diagnosis [...] 07/10/2020 9:53 PM CDT 50 mcg Fish Oil-Howell-3 Fatty Acids 360-1,200 mg capsule 1 Capsule [...] this section may contain times in both NAVIGATING OFFICER and CDT. Scheduled Medication Order 07/10/2020 07/11/2020 [...] to be adjusted per facility protocol? Yes 6445 (Given - Provider: Uyen Hill RN) famotidine [...] (Given - Provider: Hayes Garsia, CLAU) Fish Oil-Howell-3 Fatty Acids 360-1,200 mg capsule 1 Capsule [...] admin instructions), Routine 0933 (Given - Provider: Ueyn Hill RN)1335 (Given - Provider: Uyen Hill [...] documented as of this encounter Care Teams Window Machine Operator Relationship Specialty Start Date End Date Guerrero Middleton PA-C PCP - General Physician Rivet Flunky 02/13/18 documented as of this encounter
--- OUTSIDE RECORDS SUMMARY | 2024-05-03 21:52 | XMS_ITS | Encounter Summary ---
Author Organization [facility] Address [address] [place] [address] Care Team Providers Care Community Center Coordinator Name Role Phone Guerrero Middleton PA-C Primary Care Provide r Reason for Visit * Reason Onset Date Comments Medication Refill 09/20/2020 Encounter Details Date Type Department Care Team (Late st Contact Info) Description 09/20/2020 Refill [facility] Endocrinology [address] [place] [address] Prudence Gates MD [address] [place] [address] Social History Tobacco Use Types [...] [facility] [address] [place] [id number] Marlys Mayer MD [address] [place] [address] documented as of this encounter Visit Diagnoses Not on filedocumented in this encounter Additional Health Concerns Assessment Noted Time PHQ-9 Depression Total Score: 1 08/11/19 21 6:30 PM CDT documented as of this encounter Care Teams Community Center Coordinator Relationship Specialty Start Date End Date Guerrero Middleton PA-C PCP - General Physician Guest Services Agent 02/13/18 documented as of this encounter
--- OUTSIDE RECORDS SUMMARY | 2024-05-03 21:52 | XMS_ITS | Encounter Summary ---
Author Organization [facility] Address [address] [place] [address] Care Team Providers Care Mill Machinist Name Role Phone Guerrero iMddleton PA-C Primary Care Provide r Reason for Visit * Reason Comments Medication Refill Encounter Details Date Type Department Care Team (Late st Contact Info) Description 10/28/2020 Refill [facility] Endocrinology [address] [place] [address] Prudence Gates MD [address] [place] [address] Social History Tobacco Use Types Packs/Day Years [...] [facility] [address] [place] [address] Marlys Mayer MD [address] [place] [address] documented as of this encounter Visit Diagnoses Not on filedocumented in this encounter Additional Health Concerns Assessment Noted Time PHQ-9 Depression Total Score: 1 08/11/19 21 6:30 PM CDT documented as of this encounter Care Teams Mill Machinist Relationship Specialty Start Date End Date Guerrero Middleton PA-C PCP - General Physician Metal Cnc Operator 02/13/18 documented as of this encounter
--- OUTSIDE RECORDS SUMMARY | 2024-05-03 21:53 | XMS_ITS | Encounter Summary ---
Author Organization [facility] Address [address] [place]co: Epic Prelude ADT [place] [address] Care Team Providers Care Deputy Brand Inspector Name Role Phone Guerrero Middleton PA-C [...] week 08/21/2018 How often do you attend [facility] or mormonism services? Never 08/21/2018 Do [...] COVID-19? No / Unsure 04/13/2020 9:27 AM MOLD CONSTRUCTION SUPERVISOR documented as of this encounter Plan of Treatment Upcoming Encounters Date Type Department Care Team (Late st Contact Info) Description 09/14/2024 3:00 PM CDT Office Visit [facility] Heart and Vascular - [facility] [address] [place] [address] Marlys Mayer MD [address] [place] [address] documented as of this encounter Visit Diagnoses Not on filedocumented in this encounter Care Teams Deputy Brand Inspector Relationship Specialty Start Date End Date Guerrero Middleton PA-C PCP - General Physician Laminating Machine Tender 02/13/18 documented as of this encounter
--- OUTSIDE RECORDS SUMMARY | 2024-05-03 21:53 | XMS_ITS | Encounter Summary ---
Author Organization [facility] Address [address] [place]: Epic Prelude ADT [place] [address] Care Team Providers Care Dredge Boat Engineer Name Role Phone Guerrero Middleton PA-C [...] week 08/21/2018 How often do you attend [facility] or druze services? Never 08/21/2018 Do [...] COVID-19? No / Unsure 03/16/2020 9:12 AM COUNTY AGRICULTURAL AGENT documented as of this encounter Plan of Treatment Upcoming Encounters Date Type Department Care Team (Late st Contact Info) Description 09/14/2024 3:00 PM CDT Office Visit [facility] Heart and Vascular - [facility] [address] [place] [address] Marlys Mayer MD [address] [place] [address] documented as of this encounter Visit Diagnoses Not on filedocumented in this encounter Care Teams Dredge Boat Engineer Relationship Specialty Start Date End Date Guerrero Middleton PA-C PCP - General Physician Account Executive Agribusiness 02/13/18 documented as of this encounter
--- OUTSIDE RECORDS SUMMARY | 2024-05-03 21:53 | XMS_ITS | Encounter Summary ---
Author Organization [facility] Address [address] [place] [address] Care Team Providers Care Diamond Sizer And Sorter Name Role Phone Guerrero Middleton PA-C Primary Care Provide r Reason for Visit * Reason Comments Abdominal Pain Pt to ED for pancrea titis. + hx of pancreatitis and hypertriglyceridemia. Pain located left upper quadrant and radiates to back. * Auth/Cert Specialty Diagnoses / Procedures Referred By Tequila bowman Referred To Contact Emergency Medicine [facility] Emergency Dept [address] [place] [address] Referral ID Status Reason Start Date Expiration Date Visits Re quested Visits Authorized [id number] 1 1 Encounter Details Date Type Department Care Team (Latest Contact Info) Description 06/15/2020 11:02 PM SMALL BUSINESS BANKING OFFICER - 06/18/2020 2:57 PM SMALL BUSINESS BANKING OFFICER Hospital Encounter [facility] Trans[facility] Unit [address] [place] [address] Sofia Kelley MD [address] [facility] [address] [place] [address] Louie Calhoun DO [address] [place] [address] Mc Stinson MD [address] [place] [address] Shira Cavanaugh MD [address] [facility] [address] [address] Tobacco use Discharge Disposition: Home or Self [...] COVID-19? No / Unsure 06/08/2020 9:32 AM SMALL BUSINESS BANKING OFFICER documented as of this encounter Last Filed Vital Signs Vital Sign Reading Time Taken Comments Blood Pressure 106/59 06/18/2020 12:06 PM SMALL BUSINESS BANKING OFFICER Pulse 74 06/18/2020 12:06 PM SMALL BUSINESS BANKING OFFICER Temperature 36.7 ??C (98 ??F) 06/18/2020 12:06 PM SMALL BUSINESS BANKING OFFICER Respiratory Rate 15 06/18/2020 12:06 PM SMALL BUSINESS BANKING OFFICER Oxygen Saturation 96% 06/18/2020 12:06 PM SMALL BUSINESS BANKING OFFICER Inhaled Oxygen Concentration - - Weight 83.9 kg (185 lb) 06/16/2020 5:00 AM SMALL BUSINESS BANKING OFFICER Height 165.1 cm (5' 5 ) 06/16/2020 5:00 AM SMALL BUSINESS BANKING OFFICER Body Mass Index 30.79 06/16/2020 5:00 AM SMALL BUSINESS BANKING OFFICER documented in this encounter Discharge Summaries * Shira Cavanaugh MD - 06/18/2020 11:47 AM CST Images from the original note were not included. [facility] Adult Hospitalist Discharge Summary Casandra Jones 44 y.o. female 1975 CSN: [id number] Date of Admission: 06/15/2020 Date of Discharge: [...] by mouth 2 times daily. Signed by: Pruednce Gates MD Quantity: 60 Tablet Refills: 0 * !!Potential duplicate medications found. Review medication list carefully. Where to Get Your Medications These medications were sent to [facility]/pharmacy #[id number] [place], [place] - [address] [place] [address] ?? LORazepam 1 mg tablet ?? oxyCODONE [...] as needed. She also had as needed P[place]as available. She will discharge home on p.o. [...] Signed: Shira Cavanaugh MD 06/18/2020, 11:47 AM L BUSINESS BANKING OFFICER documented in this encounter Discharge Instructions * Discharge Instructions* Shira Cavanaugh MD - 06/18/2020 11:47 AM SMALL BUSINESS BANKING OFFICER Your discharging physician is Shira Cavanaugh MD and may be reached at [phone] for any questionsor concerns until you see [...] is not relieved by nitroglycerin. Smoking Exposure: [facility] encourages all patients to decrease risks associated with smoking and second hand smoke exposure. If you smoke you are advised to quit. Ask your health care provider for advice if you need assistance to stop smoking. Avoid second-hand smoke exposure and do not let people smoke in your home. Please call [phone], our pulmonary rehabilitation department, to learn more about options to reduce your risks. ACTIVITY Your activity level is: as tolerated. DIET Your diet is: diabetic WOUND CARE For your wound/incision: NA. L BUSINESS BANKING OFFICER documented in this encounter Medications at Time [...] Purcell MD - 06/18/2020 6:23 AM CST [facility] HOSPITALIST NOTE 06/18/20 6:23 AM Problem: Triglycerides [...] at risk for hypoglycemia. Gus Purcell MD L BUSINESS BANKING OFFICER * Aleksandar Tovar GN - 06/18/2020 5:17 AM CST [facility] Adult Therapeutic Orders Protocol [facility] Approved by: [facility] - Medical Executive Committee Approval Date: 02/11/2020 ORDERS ARE ENTERED ???PER PROTOCOL?? Enter the protocol in the patient's electronic health record using smartphrase:.nursingtherapeuticordersprotocol For inpatients with complaints of minor discomfort Nursing Orders: o [id number] Ice Pack/Cold Therapy 20 minutes every 2 hours to affected area. o IAA161 Warm Compress/Heat to affected area 20 minutes every 8 hours to affected area. Medication Orders: o [id number]-paxczyt-ufuxrfbkkqdvwc (CEPACOL) lozenge. 1 each by mouth every [...] or worsen contact provider for further orders L BUSINESS BANKING OFFICER * Shira Cavanaugh MD - 06/17/2020 7:59 PM CST [facility] Adult Progress Note Admit Date: 06/15/2020 Date [...] the last 72 hours. Shira Cavanaugh MD [facility] Message via secure chat (7 AM to 7 PM) [phone] (7 PM to 7 AM) L BUSINESS BANKING OFFICER * Alize Arteaga MD - 06/17/2020 12:22 [...] procedures after discharge. Alize Arteaga MD PhD director commercial sales, therapeutic apheresis service L BUSINESS BANKING OFFICER * Skyler Willett RN - 06/16/2020 6:36 [...] If yes, describe skin under device: N/A L BUSINESS BANKING OFFICER * Robyn Hernandez RN - 06/16/2020 3:17 [...] will be tomorrow 06/17/2020 pending triglyceride level. 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 ?? HPI:??Patient??began feeling very ill with terrible nausea and abdominal pain Saturday evening. She presented to the [facility] ED on 06/15/20 late in the day [...] the procedure. ?? Alize Arteaga MD, PhD Nurse Aide, therapeutic apheresis service [phone] ?? Procedure??notes:??Patient reports that she is in [...] patient tolerated the remainder of the procedure. L BUSINESS BANKING OFFICER * Jet Crowder RN - 06/16/2020 5:20 [...] wound care services. 5. Is a medical instructor in place?no If yes, remove device/brace/splint to [...] etc.). Wound care consult was not initiated. [facility] Skin Care Injury Prevention and Treatment Protocol [facility] Approved by: [facility] - Medical Executive Committee Approval Date: [...] treatments found in the Wound Care Algorithm. L BUSINESS BANKING OFFICER documented in this encounter H&P Notes * Mc Stinson MD - 06/16/2020 7:41 AM CST [facility] Adult Hospitalist [address] [place], [place] History and Physical Mc Stinson MD [...] Tape-Silicones Hives Social History Occupational History Employer: [employer] Tobacco Use ??? Smoking status: Current Every [...] of left power flow port 05/11/2019 ??? [place] ESOPHAGOGASTRODUODENOSCOPY TRANSORAL DIAGNOSTIC N/A 03/08/2018 ESOPHAGOGASTRODUODENOSCOPY performed by Sofia Vega MD at [facility] Family History Problem Relation Name Age of Onset ??? Diabetes Father ??? High Cholesterol Father ??? Hypertension Father ??? Stroke Mother ??? Heart Disease Mother ??? Thyroid Disease Mother ??? High Cholesterol Mother ??? Heart Disease Maternal Grandmother ??? Diabetes Maternal Grandmother ??? Diabetes Paternal Grandmother ??? Diabetes Mother L BUSINESS BANKING OFFICER documented in this encounter ED Notes * Brigitte Chand RN - 06/16/2020 3:27 AM CST Report given to CLAU Marti L BUSINESS BANKING OFFICER * Brigitte Chand RN - 06/16/2020 2:45 AM CST Per MD, Pt to stay in ER until Hospitalist calls back about bed placement. L BUSINESS BANKING OFFICER * Brigitte Chand RN - 06/16/2020 2:30 AM CST Pt given Fentanyl according to MAR. Patient/family has been informed about benefits and any potential clinically significant side effects or other concerns regarding the administration of the drug they have just been given. RR equal and non-labored. Call light within reach. Pt asking to speak with MD. notified. L BUSINESS BANKING OFFICER * Brigitte Chand RN - 06/16/2020 2:26 AM CST CLAU Powers notified of ready bed and pt transport. L BUSINESS BANKING OFFICER * Brigitte Chand RN - 06/16/2020 2:23 AM CST Pt complaining of pain. notified. L BUSINESS BANKING OFFICER * Brigitte Chand RN - 06/16/2020 1:47 AM CST Pt up to bathroom. L BUSINESS BANKING OFFICER * Brigitte Chand RN - 06/16/2020 1:30 AM CST Pt given medication according to JUN. Patient/family has been informed about benefits and any potential clinically significant side effects or other concerns regarding the administration of the drug they have just been given. RR equal and non-labored. Pt sitting on stretcher. Call light within reach. Family at bedside. Pt given ice chips. L BUSINESS BANKING OFFICER * Brigitte Chand RN - 06/16/2020 1:25 AM CST Pt complaining of pain, stating the morphine is not taking the pain away . Pt asking for ice chips. notified. L BUSINESS BANKING OFFICER * Brigitte Chand RN - 06/16/2020 12:48 AM CST Pt given medication according to MAR. Patient/family has been informed about benefits and any potential clinically significant side effects or other concerns regarding the administration of the drug they have just been given. RR equal and non-labored. L BUSINESS BANKING OFFICER * Brigitte Chand RN - 06/16/2020 12:32 AM CST Pt complaining of pain. Pt holding her side and leg bouncing. notified. L BUSINESS BANKING OFFICER * Mala Elaine RN - 06/16/2020 12:03 AM CST PIV access obtained, pt tolerated well. Pt rating pain 9/10. Pt medicated per MAR. Patient/family has been informed about benefits and any potential clinically significant side effects or other concerns regarding the administration of the drug they have just been given. IV NS infusing as charted in MAR. Call light in reach. L BUSINESS BANKING OFFICER * Brigitte Chand RN - 06/15/2020 11:40 [...] monitor. MD at bedside. Family at bedside. L BUSINESS BANKING OFFICER * Sofia Kelley MD - 06/15/2020 10:35 [...] AM: I discussed with Dr. Louie Calhoun ([facility]ist) all pertinent aspects of the case including [...] AM: Called and updated Dr. Louie Calhoun ([facility] Hospitalist) on the plan to switch the [...] hospitalist Name of hospitalist: Dr. Louie Calhoun ([facility] Hospitalist) Current Discharge Medication List CONTINUE these medications [...] Date/Time Comment Admit Stable Sofia Kelley MD [facility] Jun 16, 2020 1:42 AM ATTESTATION [...] and medical decision making performed by me. L BUSINESS BANKING OFFICER documented in this encounter Miscellaneous Notes * [...] because of medications (i.e. - BP meds, CV/PAN RECLAIM PROCESSOR meds, seizure meds, diuretics, pain meds, psych [...] Encounters: No data found for PF @LASTSAO2(3)@ L BUSINESS BANKING OFFICER * Care Plan - Aleksandar Tovar GN [...] device: Education: medications, insulin gtt, pain management L BUSINESS BANKING OFFICER * Care Plan - Jet Crowder RN [...] staff. Patient/family demonstrates understanding of stated education. L BUSINESS BANKING OFFICER * Care Plan - Chiquita Holden LMSW [...] with any changes noted below. LOBO Reyes, LINK WIRE FABRIC MACHINE TENDER Day 1 - Current ([place] [facility]: Adult and Obstetrics) Patient, family, or healthcare designee is participating in individual care plan process Outcome: Met Problem: Discharge Planning Goal: Identify discharge needs upon admission and through discharge Description: Outcome: Progressing L BUSINESS BANKING OFFICER documented in this encounter Plan of Treatment Upcoming Encounters Date Type Department Care Team (Late st Contact Info) Description 09/14/2024 3:00 PM CDT Office Visit [facility] Vascular - [place] [address] [place] [address] Marlys Mayer MD [address] [place], [place] [id number] documented as of this encounter Procedures Procedure Name Priority Date/Time Associated Diagnosis Comments POC GLUCOSE Routine 06/18/2020 8:36 AM SMALL BUSINESS BANKING OFFICER POC GLUCOSE Routine 06/18/2020 5:59 AM SMALL BUSINESS BANKING OFFICER TRIGLYCERIDE Routine 06/18/2020 5:08 AM SMALL BUSINESS BANKING OFFICER POC GLUCOSE Routine 06/18/2020 5:01 AM SMALL BUSINESS BANKING OFFICER POC GLUCOSE Routine 06/18/2020 4:02 AM SMALL BUSINESS BANKING OFFICER POC GLUCOSE Routine 06/18/2020 2:50 AM SMALL BUSINESS BANKING OFFICER POC GLUCOSE Routine 06/18/2020 2:09 AM SMALL BUSINESS BANKING OFFICER POC GLUCOSE Routine 06/18/2020 1:14 AM SMALL BUSINESS BANKING OFFICER POC GLUCOSE Routine 06/18/2020 12:04 AM SMALL BUSINESS BANKING OFFICER POC GLUCOSE Routine 06/17/2020 11:05 PM SMALL BUSINESS BANKING OFFICER POC GLUCOSE Routine 06/17/2020 9:59 PM SMALL BUSINESS BANKING OFFICER POC GLUCOSE Routine 06/17/2020 9:01 PM SMALL BUSINESS BANKING OFFICER POC GLUCOSE Routine 06/17/2020 8:06 PM SMALL BUSINESS BANKING OFFICER POC GLUCOSE Routine 06/17/2020 6:41 PM SMALL BUSINESS BANKING OFFICER POC GLUCOSE Routine 06/17/2020 5:47 PM SMALL BUSINESS BANKING OFFICER POC GLUCOSE Routine 06/17/2020 4:40 PM SMALL BUSINESS BANKING OFFICER POC GLUCOSE Routine 06/17/2020 3:36 PM SMALL BUSINESS BANKING OFFICER POC GLUCOSE Routine 06/17/2020 2:42 PM SMALL BUSINESS BANKING OFFICER POC GLUCOSE Routine 06/17/2020 1:31 PM SMALL BUSINESS BANKING OFFICER POC GLUCOSE Routine 06/17/2020 12:53 PM SMALL BUSINESS BANKING OFFICER POC GLUCOSE Routine 06/17/2020 11:30 AM SMALL BUSINESS BANKING OFFICER POC GLUCOSE Routine 06/17/2020 10:32 AM SMALL BUSINESS BANKING OFFICER POC GLUCOSE Routine 06/17/2020 9:32 AM SMALL BUSINESS BANKING OFFICER POC GLUCOSE Routine 06/17/2020 8:28 AM SMALL BUSINESS BANKING OFFICER POC GLUCOSE Routine 06/17/2020 7:28 AM SMALL BUSINESS BANKING OFFICER POC GLUCOSE Routine 06/17/2020 6:23 AM SMALL BUSINESS BANKING OFFICER POC GLUCOSE Routine 06/17/2020 5:36 AM SMALL BUSINESS BANKING OFFICER POC GLUCOSE Routine 06/17/2020 4:34 AM SMALL BUSINESS BANKING OFFICER CBC WITH DIFFERENTIAL Routine 06/17/2020 3:39 AM SMALL BUSINESS BANKING OFFICER TRIGLYCERIDE Routine 06/17/2020 3:39 AM SMALL BUSINESS BANKING OFFICER COMPREHENSIVE METABOLIC PANEL Routine 06/17/2020 3:39 AM SMALL BUSINESS BANKING OFFICER POC GLUCOSE Routine 06/17/2020 3:29 AM SMALL BUSINESS BANKING OFFICER POC GLUCOSE Routine 06/17/2020 2:31 AM SMALL BUSINESS BANKING OFFICER POC GLUCOSE Routine 06/17/2020 1:28 AM SMALL BUSINESS BANKING OFFICER POC GLUCOSE Routine 06/17/2020 12:58 AM SMALL BUSINESS BANKING OFFICER POC GLUCOSE Routine 06/17/2020 12:01 AM SMALL BUSINESS BANKING OFFICER POC GLUCOSE Routine 06/16/2020 11:02 PM SMALL BUSINESS BANKING OFFICER POC GLUCOSE Routine 06/16/2020 10:02 PM SMALL BUSINESS BANKING OFFICER POC GLUCOSE Routine 06/16/2020 8:54 PM SMALL BUSINESS BANKING OFFICER POC GLUCOSE Routine 06/16/2020 8:06 PM SMALL BUSINESS BANKING OFFICER POC GLUCOSE Routine 06/16/2020 6:57 PM SMALL BUSINESS BANKING OFFICER POC GLUCOSE Routine 06/16/2020 6:00 PM SMALL BUSINESS BANKING OFFICER POC GLUCOSE Routine 06/16/2020 5:02 PM SMALL BUSINESS BANKING OFFICER POC GLUCOSE Routine 06/16/2020 4:03 PM SMALL BUSINESS BANKING OFFICER POC GLUCOSE Routine 06/16/2020 3:03 PM SMALL BUSINESS BANKING OFFICER POC GLUCOSE Routine 06/16/2020 2:02 PM SMALL BUSINESS BANKING OFFICER POC GLUCOSE Routine 06/16/2020 1:05 PM SMALL BUSINESS BANKING OFFICER POC GLUCOSE Routine 06/16/2020 12:02 PM SMALL BUSINESS BANKING OFFICER POC GLUCOSE Routine 06/16/2020 10:58 AM SMALL BUSINESS BANKING OFFICER POC GLUCOSE Routine 06/16/2020 10:02 AM SMALL BUSINESS BANKING OFFICER POC GLUCOSE Routine 06/16/2020 8:58 AM SMALL BUSINESS BANKING OFFICER POC GLUCOSE Routine 06/16/2020 7:58 AM SMALL BUSINESS BANKING OFFICER POC GLUCOSE Routine 06/16/2020 6:45 AM SMALL BUSINESS BANKING OFFICER CBC WITH DIFFERENTIAL Routine 06/16/2020 6:42 AM SMALL BUSINESS BANKING OFFICER TRIGLYCERIDE Routine 06/16/2020 6:42 AM SMALL BUSINESS BANKING OFFICER LIPASE Routine 06/16/2020 6:42 AM SMALL BUSINESS BANKING OFFICER COMPREHENSIVE METABOLIC PANEL Routine 06/16/2020 6:42 AM SMALL BUSINESS BANKING OFFICER URINALYSIS W/REFLEX MICROSCOPIC Stat 06/16/2020 1:55 AM SMALL BUSINESS BANKING OFFICER CBC WITH DIFFERENTIAL Stat 06/15/2020 11:57 PM SMALL BUSINESS BANKING OFFICER TRIGLYCERIDE Stat 06/15/2020 11:57 PM SMALL BUSINESS BANKING OFFICER LIPASE Stat 06/15/2020 11:57 PM SMALL BUSINESS BANKING OFFICER COMPREHENSIVE METABOLIC PANEL Stat 06/15/2020 11:57 PM SMALL BUSINESS BANKING OFFICER documented in this encounter Results * (ABNORMAL) POC GLUCOSE (06/18/2020 8:36 AM SMALL BUSINESS BANKING OFFICER) GLUCOSE POC 146(H) 74 - 99 mg/dL 06/18/2020 8:36 AM SMALL BUSINESS BANKING OFFICER [facility] LABORATORY SERVICES [facility] COMMENT, GLU POC Notified RN/MD 06/18/2020 8:36 AM SMALL BUSINESS BANKING OFFICER [facility] LABORATORY [facility] METAL NUMERICAL CONTROL PROGRAMMER NAME POC ARLENE ARGUELLO 06/18/2020 8:36 AM SMALL BUSINESS BANKING OFFICER [facility] LABORATORY [facility] Blood, whole 06/18/2020 8:36 AM SMALL BUSINESS BANKING OFFICER 06/18/2020 8:52 AM SMALL BUSINESS BANKING OFFICER Shira Cavanaugh MD POINT OF CARE TESTIN G [facility] [employer] [facility] CLIA# [id number] [address] [place] [address] * (ABNORMAL) POC GLUCOSE (06/18/2020 5:59 AM SMALL BUSINESS BANKING OFFICER) GLUCOSE POC 106(H) 74 - 99 mg/dL 06/18/2020 5:59 AM SMALL BUSINESS BANKING OFFICER [facility] LABORATORY [facility] COMMENT, GLU POC Notified RN/MD 06/18/2020 5:59 AM SMALL BUSINESS BANKING OFFICER [facility] LABORATORY [facility] METAL NUMERICAL CONTROL PROGRAMMER NAME POC SOY MCKEON 06/18/2020 5:59 AM SMALL BUSINESS BANKING OFFICER [facility] LABORATORY [facility] Blood, whole 06/18/2020 5:59 AM SMALL BUSINESS BANKING OFFICER 06/18/2020 6:05 AM SMALL BUSINESS BANKING OFFICER Shira Cavanaugh MD POINT OF CARE TESTIN G Performing Organization Address [facility] Co de Phone Number [facility] [employer] [facility] [id number] [address] [place] [address] * (ABNORMAL) TRIGLYCERIDE (06/18/2020 5:08 AM SMALL BUSINESS BANKING OFFICER) TRIGLYCERIDE 490(H) <150 mg/dL 06/18/2020 5:50 AM SMALL BUSINESS BANKING OFFICER [facility] [employer] [facility] Blood Venipuncture / Unknown 06/18/2020 5:08 AM SMALL BUSINESS BANKING OFFICER 06/18/2020 5:13 AM SMALL BUSINESS BANKING OFFICER Narrative [facility] [employer] [facility] - 06/18/2020 5:50 AM SMALL BUSINESS BANKING OFFICER TRIGLYCERIDES ? mg/dL Normal ?< 150 Borderline High ?150 - 199 High ? 200 - 499 Very High ? >= 500 Based on AHA/NCEP Guidelines. Mc Stinson MD CHEMISTRY ORDERABLES Performing Organization Address [facility] Co de Phone Number [facility] [employer] [facility]# [id number] [address] [place] [address] * POC GLUCOSE (06/18/2020 5:01 AM SMALL BUSINESS BANKING OFFICER) GLUCOSE POC 98 74 - 99 mg/dL 06/18/2020 5:01 AM SMALL BUSINESS BANKING OFFICER [facility] LABORATORY SERVICES [facility] METAL NUMERICAL CONTROL PROGRAMMER NAME POC ALEKSANDAR TOVAR 06/18/2020 5:01 AM [facility] [employer] LABORATORY SERVICES - [facility] Blood, whole 06/18/2020 5:01 AM SMALL BUSINESS BANKING OFFICER 06/18/2020 5:26 AM SMALL BUSINESS BANKING OFFICER Shira Cavanaugh MD POINT OF CARE TESTIN Maggie [facility] [id number] [address] [place] [address] * (ABNORMAL) POC GLUCOSE (06/18/2020 4:02 AM SMALL BUSINESS BANKING OFFICER) GLUCOSE POC 117(H) 74 - 99 mg/dL 06/18/2020 4:02 AM SMALL BUSINESS BANKING OFFICER [employer] LABORATORY SERVICES - [facility] COMMENT, GLU POC Notified RN/MD 06/18/2020 4:02 AM SMALL BUSINESS BANKING OFFICER [employer] LABORATORY SERVICES - [facility] METAL NUMERICAL CONTROL PROGRAMMER NAME POC SOY MCKEON 06/18/2020 4:02 AM SMALL BUSINESS BANKING OFFICER [employer] LABORATORY SERVICES - [facility] Blood, whole 06/18/2020 4:02 AM SMALL BUSINESS BANKING OFFICER 06/18/2020 4:10 AM SMALL BUSINESS BANKING OFFICER Shira Cavanaugh MD POINT OF CARE TESTIN Maggie [facility] LABORATORY SERVICES [facility]# [id number] [address] [place] [address] * (ABNORMAL) POC GLUCOSE (06/18/2020 2:50 AM SMALL BUSINESS BANKING OFFICER) GLUCOSE POC 111(H) 74 - 99 mg/dL 06/18/2020 2:50 AM SMALL BUSINESS BANKING OFFICER [facility] LABORATORY SERVICES [facility] METAL NUMERICAL CONTROL PROGRAMMER NAME POC ALEKSANDAR TOVAR 06/18/2020 2:50 AM SMALL BUSINESS BANKING OFFICER [facility] LABORATORY SERVICES [facility] Blood, whole 06/18/2020 2:50 AM SMALL BUSINESS BANKING OFFICER 06/18/2020 2:58 AM SMALL BUSINESS BANKING OFFICER Shira Cavanaugh MD POINT OF CARE TESTIN G Performing Organization Address [facility]/ZIP Co de Phone Number [facility] [employer] [facility]# [id number] [address] [place] [address] * POC GLUCOSE (06/18/2020 2:09 AM SMALL BUSINESS BANKING OFFICER) GLUCOSE POC 84 74 - 99 mg/dL 06/18/2020 2:09 AM SMALL BUSINESS BANKING OFFICER [facility] LABORATORY [facility] COMMENT, GLU POC Notified RN/MD 06/18/2020 2:09 AM SMALL BUSINESS BANKING OFFICER [facility] LABORATORY [facility] METAL NUMERICAL CONTROL PROGRAMMER NAME POC ALEKSANDAR TOVAR 06/18/2020 2:09 AM SMALL BUSINESS BANKING OFFICER [facility] LABORATORY SERVICES [facility] Blood, whole 06/18/2020 2:09 AM SMALL BUSINESS BANKING OFFICER 06/18/2020 2:22 AM SMALL BUSINESS BANKING OFFICER Shira Cavanaugh MD POINT OF CARE TESTIN G Performing Organization Address [facility] Co de Phone Number [facility] [employer] [facility] CLIA# [id number] [address] [place] [address] * POC GLUCOSE (06/18/2020 1:14 AM SMALL BUSINESS BANKING OFFICER) GLUCOSE POC 95 74 - 99 mg/dL 06/18/2020 1:14 AM SMALL BUSINESS BANKING OFFICER [facility] LABORATORY [facility] METAL NUMERICAL CONTROL PROGRAMMER NAME POC ALEKSANDAR TOVAR 06/18/2020 1:14 AM SMALL BUSINESS BANKING OFFICER [employer] LABORATORY SERVICES [facility] Blood, whole 06/18/2020 1:14 AM SMALL BUSINESS BANKING OFFICER 06/18/2020 1:24 AM SMALL BUSINESS BANKING OFFICER Shira Cavanaugh MD POINT OF CARE TESTJERONIMO Maggie Performing Organization Address City/[facility]/ZIP Co de Phone Number [facility] [employer] [facility]# [id number] [address] [place] [address] * (ABNORMAL) POC GLUCOSE (06/18/2020 12:04 AM SMALL BUSINESS BANKING OFFICER) GLUCOSE POC 114(H) 74 - 99 mg/dL 06/18/2020 12:04 AM SMALL BUSINESS BANKING OFFICER [facility] LABORATORY [facility] METAL NUMERICAL CONTROL PROGRAMMER NAME POC ALEKSANDAR TOVAR 06/18/2020 12:04 AM SMALL BUSINESS BANKING OFFICER [facility] LABORATORY [facility] Blood, whole 06/18/2020 12:0 4 AM SMALL BUSINESS BANKING OFFICER 06/18/2020 12:40 AM SMALL BUSINESS BANKING OFFICER Shira Cavanaugh MD POINT OF CARE TESTJERONIMO Maggie Performing Organization Address [facility]/ZIP Co de Phone Number [facility] LABORATORY [facility]# [id number] [address] [place] [address] * (ABNORMAL) POC GLUCOSE (06/17/2020 11:05 PM SMALL BUSINESS BANKING OFFICER) GLUCOSE POC 136(H) 74 - 99 mg/dL 06/17/2020 11:05 PM SMALL BUSINESS BANKING OFFICER [facility] LABORATORY [facility] METAL NUMERICAL CONTROL PROGRAMMER NAME POC TAMIKO LASSITER 06/17/2020 11:05 PM SMALL BUSINESS BANKING OFFICER [facility] LABORATORY [facility] Blood, whole 06/17/2020 11:0 5 PM SMALL BUSINESS BANKING OFFICER 06/17/2020 11:13 PM SMALL BUSINESS BANKING OFFICER Shira Cavanaugh MD POINT OF CARE TESTIN Maggie Performing Organization Address City/[facility]/ZIP Co de Phone Number [facility] [employer] [facility]# [id number] [address] [place] [address] * (ABNORMAL) POC GLUCOSE (06/17/2020 9:59 PM SMALL BUSINESS BANKING OFFICER) GLUCOSE POC 120(H) 74 - 99 mg/dL 06/17/2020 9:59 PM SMALL BUSINESS BANKING OFFICER [facility] - [facility] COMMENT, GLU POC Notified RN/MD 06/17/2020 9:59 PM SMALL BUSINESS BANKING OFFICER [facility] - [facility] METAL NUMERICAL CONTROL PROGRAMMER NAME POC SOY MCKEON 06/17/2020 9:59 PM SMALL BUSINESS BANKING OFFICER [facility] LABORATORY SERVICES - [facility] Blood, whole 06/17/2020 9:59 PM SMALL BUSINESS BANKING OFFICER 06/17/2020 10:06 PM SMALL BUSINESS BANKING OFFICER Shira Cavanaugh MD POINT OF CARE TESTIN G Performing Organization Address [facility]/ZIP Co de Phone Number [facility] LABORATORY SERVICES [facility] CLIA# [id number] [address] [place] [address] * (ABNORMAL) POC GLUCOSE (06/17/2020 9:01 PM SMALL BUSINESS BANKING OFFICER) GLUCOSE POC 185(H) 74 - 99 mg/dL 06/17/2020 9:01 PM SMALL BUSINESS BANKING OFFICER [facility] LABORATORY SERVICES - [facility] METAL NUMERICAL CONTROL PROGRAMMER NAME POC TAMIKO LASSITER 06/17/2020 9:01 PM SMALL BUSINESS BANKING OFFICER [employer] LABORATORY SERVICES - [facility] Blood, whole 06/17/2020 9:01 PM SMALL BUSINESS BANKING OFFICER 06/17/2020 9:10 PM SMALL BUSINESS BANKING OFFICER Shira Cavanaugh MD POINT OF CARE TESTJERONIMO Serrano Performing Organization Address [facility]/ZIP Co de Phone Number [facility] LABORATORY [facility] CLIA# [id number] [address] [place] [address] * (ABNORMAL) POC GLUCOSE (06/17/2020 8:06 PM SMALL BUSINESS BANKING OFFICER) GLUCOSE POC 192(H) 74 - 99 mg/dL 06/17/2020 8:06 PM SMALL BUSINESS BANKING OFFICER [facility] - [facility] METAL NUMERICAL CONTROL PROGRAMMER NAME POC TAMIKO LASSITER 06/17/2020 8:06 PM SMALL BUSINESS BANKING OFFICER [employer] LABORATORY SERVICES - [facility] Blood, whole 06/17/2020 8:06 PM SMALL BUSINESS BANKING OFFICER 06/17/2020 8:15 PM SMALL BUSINESS BANKING OFFICER Shira Cavanaugh MD POINT OF CARE TESTIN Maggie [facility] [employer] [facility]# [id number] [address] [place] [address] * (ABNORMAL) POC GLUCOSE (06/17/2020 6:41 PM SMALL BUSINESS BANKING OFFICER) GLUCOSE POC 235(H) 74 - 99 mg/dL 06/17/2020 6:41 PM SMALL BUSINESS BANKING OFFICER [facility] LABORATORY SERVICES [facility] METAL NUMERICAL CONTROL PROGRAMMER NAME POC RADHA SANDOVAL 06/17/2020 6:41 PM SMALL BUSINESS BANKING OFFICER [facility] LABORATORY SERVICES [facility] Blood, whole 06/17/2020 6:41 PM SMALL BUSINESS BANKING OFFICER 06/17/2020 6:47 PM SMALL BUSINESS BANKING OFFICER Shira Cavanaugh MD POINT OF CARE TESTIN Maggie Performing Organization Address [facility]/ZIP Co de Phone Number [facility] [employer] [facility]# [id number] [address] [place] [address] * (ABNORMAL) POC GLUCOSE (06/17/2020 5:47 PM SMALL BUSINESS BANKING OFFICER) GLUCOSE POC 204(H) 74 - 99 mg/dL 06/17/2020 5:47 PM SMALL BUSINESS BANKING OFFICER [facility] LABORATORY [facility] METAL NUMERICAL CONTROL PROGRAMMER NAME POC ROMAN HENSLEY 06/17/2020 5:47 PM SMALL BUSINESS BANKING OFFICER [facility] LABORATORY SERVICES [facility] Blood, whole 06/17/2020 5:47 PM SMALL BUSINESS BANKING OFFICER 06/17/2020 6:02 PM SMALL BUSINESS BANKING OFFICER Shira Cavanaugh MD POINT OF CARE TESTIN G Performing Organization Address City/[facility]/ZIP Co de Phone Number [facility] [employer] [facility]# [id number] [address] [place] [address] * (ABNORMAL) POC GLUCOSE (06/17/2020 4:40 PM SMALL BUSINESS BANKING OFFICER) GLUCOSE POC 182(H) 74 - 99 mg/dL 06/17/2020 4:40 PM SMALL BUSINESS BANKING OFFICER [facility] LABORATORY [facility] METAL NUMERICAL CONTROL PROGRAMMER NAME RADHA QUAN 06/17/2020 4:40 PM SMALL BUSINESS BANKING OFFICER [facility] LABORATORY [facility] Blood, whole 06/17/2020 4:40 PM SMALL BUSINESS BANKING OFFICER 06/17/2020 4:48 PM SMALL BUSINESS BANKING OFFICER Shira Cavanaugh MD POINT OF CARE TESTIN Maggie Performing Organization Address [facility]/ZIP Co de Phone Number [facility] [employer] [facility]# [id number] [address] [place] [address] * (ABNORMAL) POC GLUCOSE (06/17/2020 3:36 PM SMALL BUSINESS BANKING OFFICER) GLUCOSE POC 114(H) 74 - 99 mg/dL 06/17/2020 3:36 PM SMALL BUSINESS BANKING OFFICER [facility] LABORATORY [facility] METAL NUMERICAL CONTROL PROGRAMMER NAME RADHA QUAN 06/17/2020 3:36 PM SMALL BUSINESS BANKING OFFICER [facility] LABORATORY SERVICES [facility] Blood, whole 06/17/2020 3:36 PM SMALL BUSINESS BANKING OFFICER 06/17/2020 3:45 PM SMALL BUSINESS BANKING OFFICER Shira Cavanaugh MD POINT OF CARE TESTJERONIMO Serrano Performing Organization Address [facility] Co de Phone Number [facility] [employer] [facility] CLND# [id number] [address] [place] [address] * (ABNORMAL) POC GLUCOSE (06/17/2020 2:42 PM SMALL BUSINESS BANKING OFFICER) GLUCOSE POC 117(H) 74 - 99 mg/dL 06/17/2020 2:42 PM SMALL BUSINESS BANKING OFFICER [facility] LABORATORY [facility] METAL NUMERICAL CONTROL PROGRAMMER NAME RADHA QUAN 06/17/2020 2:42 PM SMALL BUSINESS BANKING OFFICER [facility] LABORATORY [facility] Blood, whole 06/17/2020 2:42 PM SMALL BUSINESS BANKING OFFICER 06/17/2020 2:50 PM SMALL BUSINESS BANKING OFFICER Shira Cavanaugh MD POINT OF CARE TESTIN Maggie [id number] [address] [place] [address] * (ABNORMAL) POC GLUCOSE (06/17/2020 1:31 PM SMALL BUSINESS BANKING OFFICER) GLUCOSE POC 131(H) 74 - 99 mg/dL 06/17/2020 1:31 PM SMALL BUSINESS BANKING OFFICER [facility] LABORATORY [facility] METAL NUMERICAL CONTROL PROGRAMMER NAME ROMAN NAGY 06/17/2020 1:31 PM SMALL BUSINESS BANKING OFFICER [facility] LABORATORY SERVICES [facility] Blood, whole 06/17/2020 1:31 PM SMALL BUSINESS BANKING OFFICER 06/17/2020 1:46 PM SMALL BUSINESS BANKING OFFICER Shira Cavanaugh MD POINT OF CARE TESTIN Maggie Performing Organization Address [facility]/ZIP Co de Phone Number [facility] LABORATORY [facility] CLIA# [id number] [address] [place] [address] * (ABNORMAL) POC GLUCOSE (06/17/2020 12:53 PM SMALL BUSINESS BANKING OFFICER) GLUCOSE POC 170(H) 74 - 99 mg/dL 06/17/2020 12:53 PM SMALL BUSINESS BANKING OFFICER [facility] LABORATORY [facility] METAL NUMERICAL CONTROL PROGRAMMER NAME ROMAN NAGY 06/17/2020 12:53 PM SMALL BUSINESS BANKING OFFICER [facility] LABORATORY [facility] Blood, whole 06/17/2020 12:5 3 PM SMALL BUSINESS BANKING OFFICER 06/17/2020 1:26 PM SMALL BUSINESS BANKING OFFICER Shira Cavanaugh MD POINT OF CARE TESTIN Maggie Performing Organization Address City/[facility]/ZIP Co de Phone Number [facility] [employer] [facility] CLIA# [id number] [address] [place] [address] * (ABNORMAL) POC GLUCOSE (06/17/2020 11:30 AM SMALL BUSINESS BANKING OFFICER) GLUCOSE POC 159(H) 74 - 99 mg/dL 06/17/2020 11:30 AM SMALL BUSINESS BANKING OFFICER [facility] SERVICES [facility] METAL NUMERICAL CONTROL PROGRAMMER NAME POC RADHA SANDOVAL 06/17/2020 11:30 AM SMALL BUSINESS BANKING OFFICER [employer] LABORATORY SERVICES [facility] Blood, whole 06/17/2020 11:3 0 AM SMALL BUSINESS BANKING OFFICER 06/17/2020 11:38 AM SMALL BUSINESS BANKING OFFICER Shira Cavanaugh MD POINT OF CARE TESTIN G Performing Organization Address City/[facility]/ZIP Co de Phone Number [facility] LABORATORY [facility] CLIA# [id number] [address] [place] [address] * (ABNORMAL) POC GLUCOSE (06/17/2020 10:32 AM SMALL BUSINESS BANKING OFFICER) GLUCOSE POC 107(H) 74 - 99 mg/dL 06/17/2020 10:32 AM SMALL BUSINESS BANKING OFFICER [facility] LABORATORY SERVICES [facility] METAL NUMERICAL CONTROL PROGRAMMER NAME SOFIA CHAPIN 06/17/2020 10:32 AM SMALL BUSINESS BANKING OFFICER [employer] LABORATORY SERVICES [facility] Blood, whole 06/17/2020 10:3 2 AM SMALL BUSINESS BANKING OFFICER 06/17/2020 10:59 AM SMALL BUSINESS BANKING OFFICER Shira Cavanaugh MD POINT OF CARE TESTIN G Performing Organization Address [facility] Co de Phone Number [facility] [employer] [facility] CLIA# [id number] [address] [place] [address] * POC GLUCOSE (06/17/2020 9:32 AM SMALL BUSINESS BANKING OFFICER) GLUCOSE POC 93 74 - 99 mg/dL 06/17/2020 9:32 AM SMALL BUSINESS BANKING OFFICER [facility] LABORATORY SERVICES [facility] METAL NUMERICAL CONTROL PROGRAMMER NAME POC RADHA SANDOVAL 06/17/2020 9:32 AM SMALL BUSINESS BANKING OFFICER [employer] LABORATORY SERVICES [facility] Blood, whole 06/17/2020 9:32 AM SMALL BUSINESS BANKING OFFICER 06/17/2020 9:41 AM SMALL BUSINESS BANKING OFFICER Shira Cavanaugh MD POINT OF CARE TESTJERONIMO Serrano Performing Organization Address City/[facility]/ZIP Co de Phone Number [facility] LABORATORY [facility] CLIA# [id number] [address] [place] [address] * (ABNORMAL) POC GLUCOSE (06/17/2020 8:28 AM SMALL BUSINESS BANKING OFFICER) GLUCOSE POC 105(H) 74 - 99 mg/dL 06/17/2020 8:28 AM SMALL BUSINESS BANKING OFFICER [facility] LABORATORY SERVICES - [facility] METAL NUMERICAL CONTROL PROGRAMMER NAME RADHA QUAN 06/17/2020 8:28 AM SMALL BUSINESS BANKING OFFICER [employer] LABORATORY SERVICES [facility] Blood, whole 06/17/2020 8:28 AM SMALL BUSINESS BANKING OFFICER 06/17/2020 8:37 AM SMALL BUSINESS BANKING OFFICER Shira Cavanaugh MD POINT OF CARE TESTJERONIMO Serrano [facility] LABORATORY [facility] CLIA# [id number] [address] [place] [address] * (ABNORMAL) POC GLUCOSE (06/17/2020 7:28 AM SMALL BUSINESS BANKING OFFICER) GLUCOSE POC 103(H) 74 - 99 mg/dL 06/17/2020 7:28 AM SMALL BUSINESS BANKING OFFICER [facility] LABORATORY [facility] - [facility] METAL NUMERICAL CONTROL PROGRAMMER NAME RADHA QUAN 06/17/2020 7:28 AM SMALL BUSINESS BANKING OFFICER [facility] LABORATORY SERVICES [facility] Blood, whole 06/17/2020 7:28 AM SMALL BUSINESS BANKING OFFICER 06/17/2020 7:37 AM SMALL BUSINESS BANKING OFFICER Shira Cavanaugh MD POINT OF CARE TESTJERONIMO Serrano [facility] LABORATORY [facility] CLIA# [id number] [address] [place] [address] * (ABNORMAL) POC GLUCOSE (06/17/2020 6:23 AM SMALL BUSINESS BANKING OFFICER) GLUCOSE POC 112(H) 74 - 99 mg/dL 06/17/2020 6:23 AM SMALL BUSINESS BANKING OFFICER [facility] SERVICES [facility] METAL NUMERICAL CONTROL PROGRAMMER NAME OLLIE CROWDER JET 06/17/2020 6:23 AM SMALL BUSINESS BANKING OFFICER [employer] LABORATORY SERVICES [facility] Blood, whole 06/17/2020 6:23 AM SMALL BUSINESS BANKING OFFICER 06/17/2020 6:32 AM SMALL BUSINESS BANKING OFFICER Mc Stinson MD POINT OF CARE TESTIN Maggie [facility] LABORATORY SERVICES [facility] CLIA# [id number] [address] [place] [address] * (ABNORMAL) POC GLUCOSE (06/17/2020 5:36 AM SMALL BUSINESS BANKING OFFICER) GLUCOSE POC 124(H) 74 - 99 mg/dL 06/17/2020 5:36 AM SMALL BUSINESS BANKING OFFICER [employer] LABORATORY SERVICES [facility] METAL NUMERICAL CONTROL PROGRAMMER NAME POC JET CROWDER 06/17/2020 5:36 AM SMALL BUSINESS BANKING OFFICER [employer] LABORATORY SERVICES [facility] Blood, whole 06/17/2020 5:36 AM SMALL BUSINESS BANKING OFFICER 06/17/2020 5:44 AM SMALL BUSINESS BANKING OFFICER Mc Stinson MD POINT OF CARE TESTIN Maggie [facility] [employer] [facility] CLIA# [id number] [address] [address] * (ABNORMAL) POC GLUCOSE (06/17/2020 4:34 AM SMALL BUSINESS BANKING OFFICER) GLUCOSE POC 117(H) 74 - 99 mg/dL 06/17/2020 4:34 AM SMALL BUSINESS BANKING OFFICER [employer] LABORATORY SERVICES [facility] METAL NUMERICAL CONTROL PROGRAMMER NAME POC XOCHILT WILLOUGHBY 06/17/2020 4:34 AM SMALL BUSINESS BANKING OFFICER [employer] LABORATORY SERVICES [facility] Blood, whole 06/17/2020 4:34 AM SMALL BUSINESS BANKING OFFICER 06/17/2020 4:42 AM SMALL BUSINESS BANKING OFFICER Mc Stinson MD POINT OF CARE TESTJERONIMO Serrano [facility] LABORATORY [facility] CLIA# [id number] [address] [place] [address] * (ABNORMAL) TRIGLYCERIDE (06/17/2020 3:39 AM SMALL BUSINESS BANKING OFFICER) Pathologist [facility] TRIGLYCERIDE 650(H) <150 mg/dL 06/17/2020 4:23 AM [facility] [employer] [facility] Blood Venipuncture / Unknown 06/17/2020 3:39 AM SMALL BUSINESS BANKING OFFICER 06/17/2020 3:45 AM SMALL BUSINESS BANKING OFFICER [facility] [employer] [facility] - [facility] - 06/17/2020 4:23 AM SMALL BUSINESS BANKING OFFICER TRIGLYCERIDES ? mg/dL Normal ?< 150 Borderline High ?150 - 199 High ? 200 - 499 Very High ? >= 500 Based on AHA/NCEP Guidelines. Mc Stinson MD CHEMISTRY ORDERABLES [facility] [employer] [facility]# [id number] [address] [place] [address] * (ABNORMAL) COMPREHENSIVE METABOLIC PANEL (06/17/2020 3:39 AM SMALL BUSINESS BANKING OFFICER) [facility] SODIUM 139 136 - 145 mmol/L 06/17/2020 4:23 AM [facility] [employer] [facility] POTASSIUM 3.7 3.5 - 5.0 mmol/L 06/17/2020 4:23 AM [facility] [employer] [facility] CHLORIDE 110(H) 98 - 107 mmol/L 06/17/2020 4:23 AM [facility] [employer] [facility] CO2 20(L) 22 - 29 mmol/L 06/17/2020 4:23 AM [facility] [employer] [facility] CALCIUM 7.7(L) 8.6 - 10.2 mg/dL 06/17/2020 4:23 AM [facility] [employer] [facility] BUN 4(L) 6 - 20 mg/dL 06/17/2020 4:23 AM [facility] [employer] [facility] CREATININE 0.46(L) 0.51 - 0.95 mg/dL 06/17/2020 4:23 AM SMALL BUSINESS BANKING OFFICER [employer] LABORATORY SERVICES - [facility] GLUCOSE 92 74 - 99 mg/dL 06/17/2020 4:23 AM [facility] [employer] LABORATORY SERVICES - . [facility] TOTAL PROTEIN 4.9(L) 6.7 - 8.6 g/dL 06/17/2020 4:23 AM [facility] [employer] LABORATORY SERVICES - [facility] ALBUMIN 3.5 3.5 - 5.2 g/dL 06/17/2020 4:23 AM [facility] [employer] LABORATORY SERVICES - . [facility] BILIRUBIN TOTAL <0.2(L) 0.3 - 1.2 mg/dL 06/17/2020 4:23 AM [facility] [employer] LABORATORY SERVICES - [facility] ALKALINE PHOSPHATASE 25(L) 35 - 104 U/L 06/17/2020 4:23 AM [facility] [employer] LABORATORY SERVICES - . [facility] AST 16 <33 U/L 06/17/2020 4:23 AM SMALL BUSINESS BANKING OFFICER [employer] LABORATORY SERVICES - . [facility] ALT 12 <34 U/L 06/17/2020 4:23 AM SMALL BUSINESS BANKING OFFICER [employer] LABORATORY SERVICES [facility] GFR >60 >=60 mL/min/1.7 3 sq meter 06/17/2020 4:23 AM SMALL BUSINESS BANKING OFFICER [employer] LABORATORY SERVICES [facility] Comment: eGFR has not been validated for [...] mL/min/1.7 3 sq meter 06/17/2020 4:23 AM SMALL BUSINESS BANKING OFFICER [employer] LABORATORY SERVICES [facility] ANION GAP 9 8 - 16 mmol/L 06/17/2020 4:23 AM [facility] [employer] LABORATORY SERVICES [facility] Blood Venipuncture / Unknown 06/17/2020 3:39 AM SMALL BUSINESS BANKING OFFICER 06/17/2020 3:45 AM [facility] [employer] LABORATORY SERVICES - [facility] - 06/17/2020 4:23 AM SMALL BUSINESS BANKING OFFICER Samples containing indocyanine green cause interferences on Total and/or Direct Bilirubin and must not be measured. Mc Stinson MD CHEMISTRY ORDERABLES [facility] [employer] SERVICES - [facility] CLIA# [id number] [facility] [place] [address] [address] * (ABNORMAL) CBC WITH DIFFERENTIAL (06/17/2020 3:39 AM SMALL BUSINESS BANKING OFFICER) Pathologist [facility] WBC 6.9 4.0 - 9.8 K/uL 06/17/2020 4:09 AM [facility] [employer] [facility] RBC 3.92 3.90 - 4.90 M/uL 06/17/2020 4:09 AM [facility] [employer] [facility] HEMOGLOBIN 11.3(L) 11.8 - 14.8 g/dL 06/17/2020 4:[address] [facility] [employer] [facility] HEMATOCRIT 37.3 35.5 - 44.0 % 06/17/2020 4:09 AM [facility] [employer] [facility] MCV 95.2 82.0 - 99.0 fL 06/17/2020 4:09 AM [facility] [employer] [facility] MCH 28.8 27.2 - 32.6 pg 06/17/2020 4:09 AM [facility] [employer] [facility] MCHC 30.3(L) 31.5 - 35.5 g/dL 06/17/2020 4:09 AM [facility] [employer] [facility] RDW 14.1 11.5 - 14.5 % 06/17/2020 4:09 AM [facility] [employer] [facility] RDW-STDEV 50.0(H) 37.1 - 48.7 fL 06/17/2020 4:09 AM [facility] [employer] [facility] PLATELETS 187 140 - 350 K/uL 06/17/2020 4:09 AM [facility] [employer] - [facility] MPV 9.2(L) 9.3 - 12.4 fL 06/17/2020 4:09 AM [employer] BUSINESS BANKING OFFICER [employer] - . [facility] NEUTROPHILS 50 % 06/17/2020 4:[address] [facility] [employer] [facility] - [facility] LYMPHOCYTES 42 % 06/17/2020 4:[address] [facility] - . [facility] MONOCYTES 6 % 06/17/2020 4:[address] [facility] - . [facility] EOSINOPHILS 1 % 06/17/2020 4:[address] [facility] - . [facility] BASOPHILS 0 % 06/17/2020 4:[address] [facility] - . [facility] IMMATURE GRANULOCYTES 1 % 06/17/2020 4:[address] [facility] [employer] [facility] - . [facility] Comment:IG (Immature Granulo cyte) count includes Metamyelocytes, Myelocytes, and Promyelocytes NEUTROPHIL ABSOLUTE 3.48 1.90 - 7.00 K/uL 06/17/2020 4:[address] [facility] [employer] [facility] LYMPHOCYTE ABSOLUTE 2.92 0.70 - 4.50 K/uL 06/17/2020 4:[address] [facility] [employer] [facility] MONOCYTE ABSOLUTE 0.39 0.10 - 1.30 K/uL 06/17/2020 4:[address] [facility] [employer] [facility] - . [facility] EOSINOPHIL ABSOLUTE 0.06 0.00 - 0.70 K/uL 06/17/2020 4:[address] [facility] [employer] [facility] BASOPHILS ABSOLUTE 0.03 0.00 - 0.20 K/uL 06/17/2020 4:[address] [facility] [employer] [facility] IMMATURE GRANULOCYTES ABSOLUTE 0.04(H) 0.00 - 0.03 K/uL 06/17/2020 4:[address] [facility] [employer] [facility] Blood Venipuncture / Unknown 06/17/2020 3:39 AM [employer] OFFICER 06/17/2020 3:45 AM [employer] BUSINESS BANKING OFFICER Mc Stinson MD HEMATOLOGY ORDERABLE S [facility] CLIA# [id number] 5 [facility] [place] [address] * POC GLUCOSE (06/17/2020 3:29 AM SMALL BUSINESS BANKING OFFICER) GLUCOSE POC 90 74 - 99 mg/dL 06/17/2020 3:29 AM [employer] BUSINESS B[employer]ING OFFICER [facility] COMMENT, GLU POC Notified RN/ 06/17/2020 3:29 AM SMALL BUSINESS B[employer]ING OFFICER [facility] METAL NUMERICAL CONTROL PROGRAMMER NAME POC JET CROWDER 06/17/2020 3:29 AM SMALL BUSINESS B[employer]ING OFFICER [facility] Blood, whole 06/17/2020 3:29 AM SMALL BUSINESS BANKING OFFICER 06/17/2020 3:37 AM SMALL BUSINESS BANKING OFFICER Mc Stinson MD POINT OF CARE TESTIN G Performing Organization Address City/[facility]/ZIP Co de Phone Number [facility] LABORATORY [facility]# [id number] [address] [facility] [address] [place] [address] * (ABNORMAL) POC GLUCOSE (06/17/2020 2:31 AM SMALL BUSINESS BANKING OFFICER) GLUCOSE POC 111(H) 74 - 99 mg/dL 06/17/2020 2:31 AM SMALL BUSINESS BANKING OFFICER [facility] METAL NUMERICAL CONTROL PROGRAMMER NAME POC JET CROWDER 06/17/2020 2:31 AM SMALL BUSINESS BANKING OFFICER [facility] Blood, whole 06/17/2020 2:31 AM SMALL BUSINESS BANKING OFFICER 06/17/2020 2:49 AM SMALL BUSINESS BANKING OFFICER Mc Stinson MD POINT OF CARE TESTJERONIMO Serrano [facility] LABORATORY [facility] CLIA# [id number] [address] [place] [address] * (ABNORMAL) POC GLUCOSE (06/17/2020 1:28 AM SMALL BUSINESS BANKING OFFICER) GLUCOSE POC 124(H) 74 - 99 mg/dL 06/17/2020 1:28 AM SMALL BUSINESS BANKING OFFICER [facility] COMMENT, GLU POC Notified RN/ 06/17/2020 1:28 AM SMALL BUSINESS BANKING OFFICER [facility] METAL NUMERICAL CONTROL PROGRAMMER NAME POC XOCHILT WILLOUGHBY 06/17/2020 1:28 AM SMALL BUSINESS BANKING OFFICER [facility] - [facility] Blood, whole 06/17/2020 1:28 AM SMALL BUSINESS BANKING OFFICER 06/17/2020 1:36 AM SMALL BUSINESS BANKING OFFICER Mc Stinson MD POINT OF CARE TESTIN G [facility] LABORATORY [facility] CLIA# [id number] [address] [place] [address] * (ABNORMAL) POC GLUCOSE (06/17/2020 12:58 AM SMALL BUSINESS BANKING OFFICER) GLUCOSE POC 143(H) 74 - 99 mg/dL 06/17/2020 12:58 AM SMALL BUSINESS BANKING OFFICER [facility] - [facility] METAL NUMERICAL CONTROL PROGRAMMER NAME POC JET CROWDER 06/17/2020 12:58 AM SMALL BUSINESS BANKING OFFICER [facility] LABORATORY SERVICES [facility] Blood, whole 06/17/2020 12:5 8 AM SMALL BUSINESS BANKING OFFICER 06/17/2020 1:06 AM SMALL BUSINESS BANKING OFFICER Mc Stinson MD POINT OF CARE TESTJERONIMO Maggie Performing Organization Address [facility]/ZIP Co de Phone Number [facility] [employer] [facility] CLIA# [id number] [address] [place] [address] * (ABNORMAL) POC GLUCOSE (06/17/2020 12:01 AM SMALL BUSINESS BANKING OFFICER) GLUCOSE POC 222(H) 74 - 99 mg/dL 06/17/2020 12:01 AM SMALL BUSINESS BANKING OFFICER [facility] COMMENT, GLU POC Notified RN/MD 06/17/2020 12:01 AM SMALL BUSINESS BANKING OFFICER [facility] - [facility] METAL NUMERICAL CONTROL PROGRAMMER NAME POC XOCHILT WILLOUGHBY 06/17/2020 12:01 AM SMALL BUSINESS BANKING OFFICER [facility] [facility] LABORATORY SERVICES [facility] Blood, whole 06/17/2020 12:0 1 AM SMALL BUSINESS BANKING OFFICER 06/17/2020 12:08 AM SMALL BUSINESS BANKING OFFICER Mc Stinson MD POINT OF CARE TESTIN G [facility] [employer] [id number] [address] [place] [address] * (ABNORMAL) POC GLUCOSE (06/16/2020 11:02 PM SMALL BUSINESS BANKING OFFICER) GLUCOSE POC 239(H) 74 - 99 mg/dL 06/16/2020 11:02 PM SMALL BUSINESS BANKING OFFICER [facility] LABORATORY SERVICES - [facility] COMMENT, GLU POC Notified RN/MD 06/16/2020 11:02 PM SMALL BUSINESS BANKING OFFICER [facility] LABORATORY SERVICES [facility] METAL NUMERICAL CONTROL PROGRAMMER NAME POC XOCHILT WILLOUGHBY 06/16/2020 11:02 PM SMALL BUSINESS BANKING OFFICER [facility] LABORATORY SERVICES [facility] Blood, whole 06/16/2020 11:0 2 PM SMALL BUSINESS BANKING OFFICER 06/16/2020 11:16 PM SMALL BUSINESS BANKING OFFICER Mc Stinson MD POINT OF CARE TESTJERONIMO Serrano Performing Organization Address [facility]/ZIP Co de Phone Number [id number] [address] [place] [address] * (ABNORMAL) POC GLUCOSE (06/16/2020 10:02 PM SMALL BUSINESS BANKING OFFICER) GLUCOSE POC 196(H) 74 - 99 mg/dL 06/16/2020 10:02 PM SMALL BUSINESS BANKING OFFICER [facility] LABORATORY [facility] METAL NUMERICAL CONTROL PROGRAMMER NAME POC JET CROWDER 06/16/2020 10:02 PM SMALL BUSINESS BANKING OFFICER [facility] LABORATORY SERVICES [facility] Blood, whole 06/16/2020 10:0 2 PM SMALL BUSINESS BANKING OFFICER 06/16/2020 10:11 PM SMALL BUSINESS BANKING OFFICER Mc Stinson MD POINT OF CARE TESTJERONIMO Serrano Performing Organization Address City/[facility]/ZIP Co de Phone Number [facility] [id number] [address] [place] [address] * (ABNORMAL) POC GLUCOSE (06/16/2020 8:54 PM SMALL BUSINESS BANKING OFFICER) GLUCOSE POC 164(H) 74 - 99 mg/dL 06/16/2020 8:54 PM SMALL BUSINESS BANKING OFFICER [facility] - [facility] METAL NUMERICAL CONTROL PROGRAMMER NAME POC JET CROWDER 06/16/2020 8:54 PM SMALL BUSINESS BANKING OFFICER [facility] [facility] LABORATORY SERVICES - [facility] Blood, whole 06/16/2020 8:54 PM SMALL BUSINESS BANKING OFFICER 06/16/2020 9:06 PM SMALL BUSINESS BANKING OFFICER Mc Stinson MD POINT OF CARE TESTIN G Performing Organization Address [facility]/ZIP Co de Phone Number [facility] LABORATORY SERVICES [facility] CLIA# [id number] [address] [place] [address] * (ABNORMAL) POC GLUCOSE (06/16/2020 8:06 PM SMALL BUSINESS BANKING OFFICER) GLUCOSE POC 131(H) 74 - 99 mg/dL 06/16/2020 8:06 PM SMALL BUSINESS BANKING OFFICER [facility] [facility]ATORY SERVICES - [facility] COMMENT, GLU POC Notified CLAU/ 06/16/2020 8:06 PM SMALL BUSINESS BANKING OFFICER [employer] [facility]ATORY SERVICES - [facility] METAL NUMERICAL CONTROL PROGRAMMER NAME POC XOCHILT WILLOUGHBY 06/16/2020 8:06 PM SMALL BUSINESS BANKING OFFICER [employer] [facility]ATORY SERVICES - [facility] Blood, whole 06/16/2020 8:06 PM SMALL BUSINESS BANKING OFFICER 06/16/2020 8:14 PM SMALL BUSINESS BANKING OFFICER Mc Stinson MD POINT OF CARE TESTJERONIMO Serrano Performing Organization Address [facility]/ZIP Co de Phone Number [facility] LABORATORY SERVICES [facility] CLIA# [id number] [address] [place] [address] * (ABNORMAL) POC GLUCOSE (06/16/2020 6:57 PM SMALL BUSINESS BANKING OFFICER) GLUCOSE POC 152(H) 74 - 99 mg/dL 06/16/2020 6:57 PM SMALL BUSINESS BANKING OFFICER [facility] LABORATORY SERVICES [facility] COMMENT, GLU POC Notified CLAU/ 06/16/2020 6:57 PM SMALL BUSINESS BANKING OFFICER [employer] LABORATORY SERVICES - [facility] METAL NUMERICAL CONTROL PROGRAMMER NAME POC DAVID, SKYLER 06/16/2020 6:57 PM SMALL BUSINESS BANKING OFFICER [facility] LABORATORY SERVICES [facility] Blood, whole 06/16/2020 6:57 PM SMALL BUSINESS BANKING OFFICER 06/16/2020 7:08 PM SMALL BUSINESS BANKING OFFICER Mc Stinson MD POINT OF CARE TESTIN G [facility] CLIA# [id number] [address] [place] [address] * (ABNORMAL) POC GLUCOSE (06/16/2020 6:00 PM SMALL BUSINESS BANKING OFFICER) GLUCOSE POC 178(H) 74 - 99 mg/dL 06/16/2020 6:00 PM SMALL BUSINESS BANKING OFFICER [facility] LABORATORY [facility] METAL NUMERICAL CONTROL PROGRAMMER NAME POC SKYLER WILLETT 06/16/2020 6:00 PM SMALL BUSINESS BANKING OFFICER [facility] LABORATORY [facility] Blood, whole 06/16/2020 6:00 PM SMALL BUSINESS BANKING OFFICER 06/16/2020 6:22 PM SMALL BUSINESS BANKING OFFICER Mc Stinson MD POINT OF CARE TESTIN Maggie [facility] [employer] [facility] CLIA# [id number] [address] [place] [address] * (ABNORMAL) POC GLUCOSE (06/16/2020 5:02 PM SMALL BUSINESS BANKING OFFICER) GLUCOSE POC 158(H) 74 - 99 mg/dL 06/16/2020 5:02 PM SMALL BUSINESS BANKING OFFICER [facility] LABORATORY [facility] METAL NUMERICAL CONTROL PROGRAMMER NAME POC PELON (pn-BABITZ) DADA 06/16/2020 5:02 PM SMALL BUSINESS BANKING OFFICER [facility] LABORATORY [facility] Blood, whole 06/16/2020 5:02 PM SMALL BUSINESS BANKING OFFICER 06/16/2020 5:10 PM SMALL BUSINESS BANKING OFFICER Mc Stinson MD POINT OF CARE TESTIN Maggie [facility] LABORATORY [facility] CLIA# [id number] [address] [place] [address] * (ABNORMAL) POC GLUCOSE (06/16/2020 4:03 PM SMALL BUSINESS BANKING OFFICER) GLUCOSE POC 122(H) 74 - 99 mg/dL 06/16/2020 4:03 PM SMALL BUSINESS BANKING OFFICER [facility] COMMENT, GLU POC Notified RN/ 06/16/2020 4:03 PM SMALL BUSINESS BANKING OFFICER [facility] LABORATORY SERVICES - [facility] METAL NUMERICAL CONTROL PROGRAMMER NAME POC SKYLER WILLETT 06/16/2020 4:03 PM SMALL BUSINESS BANKING OFFICER [facility] Blood, whole 06/16/2020 4:03 PM SMALL BUSINESS BANKING OFFICER 06/16/2020 4:16 PM SMALL BUSINESS BANKING OFFICER Mc Stinson MD POINT OF CARE TESTJERONIMO Serrano Performing Organization Address [facility]/ZIP Co de Phone Number [facility] LABORATORY [facility] CLIA# [id number] [address] [place] [address] * (ABNORMAL) POC GLUCOSE (06/16/2020 3:03 PM SMALL BUSINESS BANKING OFFICER) GLUCOSE POC 149(H) 74 - 99 mg/dL 06/16/2020 3:03 PM SMALL BUSINESS BANKING OFFICER [facility] LABORATORY SERVICES - [facility] COMMENT, GLU POC Notified RN/ 06/16/2020 3:03 PM SMALL BUSINESS BANKING OFFICER [facility] LABORATORY SERVICES [facility] METAL NUMERICAL CONTROL PROGRAMMER NAME POC SKYLER WILLETT 06/16/2020 3:03 PM SMALL BUSINESS BANKING OFFICER [facility] LABORATORY SERVICES [facility] Blood, whole 06/16/2020 3:03 PM SMALL BUSINESS BANKING OFFICER 06/16/2020 3:09 PM SMALL BUSINESS BANKING OFFICER Mc Stinson MD POINT OF CARE TESTIN Maggie [facility] LABORATORY [facility] CLIA# [id number] [address] [place] [address] * (ABNORMAL) POC GLUCOSE (06/16/2020 2:02 PM SMALL BUSINESS BANKING OFFICER) GLUCOSE POC 145(H) 74 - 99 mg/dL 06/16/2020 2:02 PM SMALL BUSINESS BANKING OFFICER [facility] LABORATORY SERVICES [facility] METAL NUMERICAL CONTROL PROGRAMMER NAME POC SKYLER WILLETT 06/16/2020 2:02 PM SMALL BUSINESS BANKING OFFICER [facility] LABORATORY SERVICES [facility] Blood, whole 06/16/2020 2:02 PM SMALL BUSINESS BANKING OFFICER 06/16/2020 2:41 PM SMALL BUSINESS BANKING OFFICER Mc Stinson MD POINT OF CARE TESTIN G Performing Organization Address [facility]/ZIP Co de Phone Number [facility]# [id number] [address] [address] * (ABNORMAL) POC GLUCOSE (06/16/2020 1:05 PM SMALL BUSINESS BANKING OFFICER) GLUCOSE POC 143(H) 74 - 99 mg/dL 06/16/2020 1:05 PM SMALL BUSINESS BANKING OFFICER [facility] LABORATORY [facility] METAL NUMERICAL CONTROL PROGRAMMER NAME POC ROMAN HENSLEY 06/16/2020 1:05 PM SMALL BUSINESS BANKING OFFICER [facility] LABORATORY SERVICES [facility] Blood, whole 06/16/2020 1:05 PM SMALL BUSINESS BANKING OFFICER 06/16/2020 1:11 PM SMALL BUSINESS BANKING OFFICER Mc Stinson MD POINT OF CARE TESTJERONIMO Serrano Performing Organization Address [facility]/ZIP Co de Phone Number [facility]# [id number] [address] [place] [address] * (ABNORMAL) POC GLUCOSE (06/16/2020 12:02 PM SMALL BUSINESS BANKING OFFICER) GLUCOSE POC 112(H) 74 - 99 mg/dL 06/16/2020 12:02 PM SMALL BUSINESS BANKING OFFICER [facility] LABORATORY SERVICES [facility] COMMENT, GLU POC Notified RN/MD 06/16/2020 12:02 PM SMALL BUSINESS BANKING OFFICER [facility] LABORATORY SERVICES [facility] METAL NUMERICAL CONTROL PROGRAMMER NAME POC DIMITRIOS SOFIA 06/16/2020 12:02 PM SMALL BUSINESS BANKING OFFICER [facility] LABORATORY SERVICES [facility] Blood, whole 06/16/2020 12:0 2 PM SMALL BUSINESS BANKING OFFICER 06/16/2020 12:14 PM SMALL BUSINESS BANKING OFFICER Mc Stinson MD POINT OF CARE TESTJERONIMO Serrano Performing Organization Address [facility]/ZIP Co de Phone Number [facility] LABORATORY [facility] CLIA# [id number] [address] [place], [place] [address] * (ABNORMAL) POC GLUCOSE (06/16/2020 10:58 AM SMALL BUSINESS BANKING OFFICER) GLUCOSE POC 151(H) 74 - 99 mg/dL 06/16/2020 10:58 AM SMALL BUSINESS BANKING OFFICER [facility] LABORATORY SERVICES [facility] METAL NUMERICAL CONTROL PROGRAMMER NAME POC SKYLER WILLETT 06/16/2020 10:58 AM SMALL BUSINESS BANKING OFFICER [facility] LABORATORY SERVICES [facility] Blood, whole 06/16/2020 10:5 8 AM SMALL BUSINESS BANKING OFFICER 06/16/2020 11:13 AM SMALL BUSINESS BANKING OFFICER Mc Stinson MD POINT OF CARE TESTJERONIMO Serrano Performing Organization Address [facility] Co de Phone Number [facility] [employer] [facility] CLND# [id number] [address] [place], [place] [address] * (ABNORMAL) POC GLUCOSE (06/16/2020 10:02 AM SMALL BUSINESS BANKING OFFICER) GLUCOSE POC 183(H) 74 - 99 mg/dL 06/16/2020 10:02 AM SMALL BUSINESS BANKING OFFICER [facility] LABORATORY SERVICES [facility] COMMENT, GLU POC Notified RN/MD 06/16/2020 10:02 AM SMALL BUSINESS BANKING OFFICER [facility] LABORATORY SERVICES [facility] METAL NUMERICAL CONTROL PROGRAMMER NAME POC ROMAN HENSLEY 06/16/2020 10:02 AM SMALL BUSINESS BANKING OFFICER [facility] LABORATORY SERVICES [facility] Blood, whole 06/16/2020 10:0 2 AM SMALL BUSINESS BANKING OFFICER 06/16/2020 10:12 AM SMALL BUSINESS BANKING OFFICER Mc Stinson MD POINT OF CARE TESTJERONIMO Serrano Performing Organization Address City/[facility]/ZIP Co de Phone Number [facility] LABORATORY [facility] CLIA# [id number] [address] [place] [address] * (ABNORMAL) POC GLUCOSE (06/16/2020 8:58 AM SMALL BUSINESS BANKING OFFICER) GLUCOSE POC 221(H) 74 - 99 mg/dL 06/16/2020 8:58 AM SMALL BUSINESS BANKING OFFICER [facility] - [facility] METAL NUMERICAL CONTROL PROGRAMMER NAME POC ROMAN HENSLEY 06/16/2020 8:58 AM SMALL BUSINESS BANKING OFFICER [facility] Blood, whole 06/16/2020 8:58 AM SMALL BUSINESS BANKING OFFICER 06/16/2020 9:05 AM SMALL BUSINESS BANKING OFFICER Mc Stinson MD POINT OF CARE TESTJERONIMO Serrano [facility] LABORATORY SERVICES [facility] CLIA# [id number] [address] [place] [address] * (ABNORMAL) POC GLUCOSE (06/16/2020 7:58 AM SMALL BUSINESS BANKING OFFICER) GLUCOSE POC 240(H) 74 - 99 mg/dL 06/16/2020 7:58 AM SMALL BUSINESS BANKING OFFICER [facility] - [facility] COMMENT, GLU POC Notified RN/MD 06/16/2020 7:58 AM SMALL BUSINESS BANKING OFFICER [facility] LABORATORY SERVICES - [facility] METAL NUMERICAL CONTROL PROGRAMMER NAME POC YESY ANDERS 06/16/2020 7:58 AM SMALL BUSINESS BANKING OFFICER [employer] LABORATORY SERVICES - [facility] Blood, whole 06/16/2020 7:58 AM SMALL BUSINESS BANKING OFFICER 06/16/2020 8:09 AM SMALL BUSINESS BANKING OFFICER Mc Stinson MD POINT OF CARE TESTIN Maggie [facility] LABORATORY [facility] CLIA# [id number] [address] [place] [address] * (ABNORMAL) POC GLUCOSE (06/16/2020 6:45 AM SMALL BUSINESS BANKING OFFICER) GLUCOSE POC 267(H) 74 - 99 mg/dL 06/16/2020 6:45 AM SMALL BUSINESS BANKING OFFICER [employer] LABORATORY SERVICES - [facility] METAL NUMERICAL CONTROL PROGRAMMER NAME POC CHIQUITA WHEATLEY 06/16/2020 6:45 AM SMALL BUSINESS BANKING OFFICER [facility] LAB[facility]ATORY SERVICES - [facility] Blood, whole 06/16/2020 6:45 AM SMALL BUSINESS BANKING OFFICER 06/16/2020 6:51 AM SMALL BUSINESS BANKING OFFICER Louie Calhoun DO POINT OF CARE TESTIN G [facility]ATORY SERVICES - [facility] CLIA# [id number] [address] [facility] [place] [address] * (ABNORMAL) CBC WITH DIFFERENTIAL (06/16/2020 6:42 AM SMALL BUSINESS BANKING OFFICER) WBC 9.1 4.0 - 9.8 K/uL 06/16/2020 7:19 AM [employer] [facility] - [facility] RBC 4.10 3.90 - 4.90 M/uL 06/16/2020 7:19 AM [facility] LAB[facility]ATORY SERVICES - [facility] HEMOGLOBIN 12.6 11.8 - 14.8 g/dL 06/16/2020 7:19 AM [facility] - [facility] HEMATOCRIT 38.0 35.5 - 44.0 % 06/16/2020 7:19 AM [facility] - [facility] MCV 92.7 82.0 - 99.0 fL 06/16/2020 7:19 AM [facility] - [facility] MCH 30.7 27.2 - 32.6 pg 06/16/2020 7:19 AM [facility] - [facility] MCHC 33.2 31.5 - 35.5 g/dL 06/16/2020 7:19 AM [facility] - [facility] RDW 13.8 11.5 - 14.5 % 06/16/2020 7:19 AM [facility] - [facility] RDW-STDEV 46.8 37.1 - 48.7 fL 06/16/2020 7:19 AM [facility] - [facility] PLATELETS 229 140 - 350 K/uL 06/16/2020 7:19 AM [facility] - [facility] MPV 9.4 9.3 - 12.4 fL 06/16/2020 7:19 AM [facility] [facility] - [facility] NEUTROPHILS 65 % 06/16/2020 7:19 AM [facility] LAB[facility]ATORY [facility] - [facility] LYMPHOCYTES 29 % 06/16/2020 7:[address] [facility] - [facility] MONOCYTES 5 % 06/16/2020 7:[address] [facility] - [facility] EOSINOPHILS 1 % 06/16/2020 7:[address] [facility] - [facility] BASOPHILS 0 % 06/16/2020 7:[address] [facility] - [facility] IMMATURE GRANULOCYTES 0 % 06/16/2020 7:19 AM [facility] - [facility] NEUTROPHIL ABSOLUTE 5.86 1.90 - 7.00 K/uL 06/16/2020 7:[address] [facility] - [facility] LYMPHOCYTE ABSOLUTE 2.65 0.70 - 4.50 K/uL 06/16/2020 7:[address] [facility] - [facility] MONOCYTE ABSOLUTE 0.42 0.10 - 1.30 K/uL 06/16/2020 7:[address] [facility] - [facility] EOSINOPHIL ABSOLUTE 0.09 0.00 - 0.70 K/uL 06/16/2020 7:19 AM [facility] - [facility] BASOPHILS ABSOLUTE 0.03 0.00 - 0.20 K/uL 06/16/2020 7:19 AM [facility] - [facility] IMMATURE GRANULOCYTES ABSOLUTE 0.04(H) 0.00 - 0.03 K/uL 06/16/2020 7:[address] [facility] - [facility] Blood Venipuncture / Unknown 06/16/2020 6:42 AM [employer] BUSINESS BANKING OFFICER 06/16/2020 6:48 AM [employer] BUSINESS BANKING OFFICER Mc Stinson MD HEMATOLOGY ORDERABLE S [facility] LAB[facility]ATORY SERVICES - [facility] CLIA# [id number] [facility] [place] [address] * (ABNORMAL) COMPREHENSIVE METABOLIC PANEL (06/16/2020 6:42 AM SMALL BUSINESS BANKING OFFICER) SODIUM 131(L) 136 - 145 mmol/L 06/16/2020 7:58 AM SMALL BUSINESS BANKING OFFICER [facility] [facility] - [facility] POTASSIUM 4.0 3.5 - 5.0 mmol/L 06/16/2020 7:58 AM [facility] [employer] [facility] - [facility] CHLORIDE 99 98 - 107 mmol/L 06/16/2020 7:58 AM [facility] [employer] [facility] - [facility] CO2 21(L) 22 - 29 mmol/L 06/16/2020 7:58 AM [employer] BUSINESS BANKING OFFICER [facility] [facility] CALCIUM 8.1(L) 8.6 - 10.2 mg/dL 06/16/2020 7:58 AM [employer] BUSINESS BANKING OFFICER [facility] BUN 7 6 - 20 mg/dL 06/16/2020 7:58 AM [facility] [employer] [facility] - [facility] CREATININE 0.40(L) 0.51 - 0.95 mg/dL 06/16/2020 7:58 AM [facility] - [facility] GLUCOSE 251(H) 74 - 99 mg/dL 06/16/2020 7:58 AM SMALL BUSINESS BANKING OFFICER [facility] - [facility] TOTAL PROTEIN 5.9(L) 6.7 - 8.6 g/dL 06/16/2020 7:58 AM [employer] BUSINESS BANKING OFFICER [facility] - [facility] ALBUMIN 3.6 3.5 - 5.2 g/dL 06/16/2020 7:58 AM SMALL BUSINESS BANKING OFFICER [facility] [facility] - [facility] BILIRUBIN TOTAL 0.2(L) 0.3 - 1.2 mg/dL 06/16/2020 7:58 AM [facility] - [facility] ALKALINE PHOSPHATASE 51 35 - 104 U/L 06/16/2020 7:58 AM [facility] - [facility] AST <5 <33 U/L 06/16/2020 7:58 AM [facility] ALT <5 <34 U/L 06/16/2020 7:58 AM [facility] GFR >60 >=60 mL/min/1.7 3 sq meter 06/16/2020 7:58 AM [facility] Comment: eGFR [...] mL/min/1.7 3 sq meter 06/16/2020 7:58 AM [employer] BUSINESS BANKING OFFICER [facility] [employer] [facility] ANION GAP 11 8 - 16 mmol/L 06/16/2020 7:58 AM [employer] BUSINESS BANKING OFFICER [facility] [employer] [facility] Blood Venipuncture / Unknown 06/16/2020 6:42 AM [employer] 06/16/2020 6:48 AM [employer]ER [facility] [employer] [facility] - 06/16/2020 7:58 AM [employer] Samples containing indocyanine green cause interferences on Total and/or Direct Bilirubin and must not be measured. Mc Stinson MD CHEMISTRY ORDERABLES [facility]# [id number] [address] [place] [address] * (ABNORMAL) TRIGLYCERIDE (06/16/2020 6:42 AM [employer]) TRIGLYCERIDE 2,169(H) <150 mg/dL 06/16/2020 7:51 AM [employer] [facility] [employer] [facility] Blood Venipuncture / Unknown 06/16/2020 6:42 AM [employer] OFFICER 06/16/2020 6:48 AM [employer] OFFICER [facility] [employer] [facility] - 06/16/2020 7:51 AM [employer] OFFICER TRIGLYCERIDES ? mg/dL Normal ?< 150 Borderline High ?150 - 199 High ? 200 - 499 Very High ? >= 500 Based on AHA/NCEP Guidelines. Mc Stinson MD CHEMISTRY ORDERABLES [facility] LABORATORY [facility]# [id number] [address] [place] [address] * LIPASE (06/16/2020 6:42 AM [employer] OFFICER) LIPASE 28 13 - 60 U/L 06/16/2020 7:35 AM [facility] [employer] LABORATORY SERVICES [facility] Blood Venipuncture / Unknown 06/16/2020 6:42 AM [employer] OFFICER 06/16/2020 6:48 AM [employer] OFFICER Mc Stinson MD CHEMISTRY ORDERABLES Performing Organization Address [facility]/ZIP Co de Phone Number [facility] LAB[facility]ATORY SERVICES [facility] [id number] [address] [place] [address] * (ABNORMAL) URINALYSIS WITH REFLEX MICROSCOPIC (06/16/2020 1:55 AM [employer] OFFICER) COLOR UA Yellow Pale to Dark Yellow 06/16/2020 4:41 AM [employer] OFFIC[employer] LABORATORY SERVICES - [facility] CLARITY UA Clear Clear 06/16/2020 4:41 AM [employer] OFFICER [employer] LABORATORY SERVICES - [facility] SPECIFIC GRAVITY UA 1.031 1.003 - 1.035 06/16/2020 4:41 AM [employer] OFFICER [employer] LABORATORY SERVICES [facility] PH UA 5.0 5.0 - 8.0 06/16/2020 4:41 AM [employer] OFFICER [employer] LABORATORY SERVICES - . [facility] LEUKOCYTE ESTERASE UA Negative Negative 06/16/2020 4:41 AM [employer] OFFICER [employer] LABORATORY SERVICES - . [facility] NITRITE UA Negative Negative 06/16/2020 4:41 AM [employer] OFFICER [employer] LABORATORY SERVICES - . [facility] PROTEIN UA Negative Negative 06/16/2020 4:41 AM [employer] OFFICER [employer] LABORATORY SERVICES - . [facility] GLUCOSE UA 3+(A) Negative 06/16/2020 4:41 AM [employer] OFFIC[employer] LABORATORY SERVICES - . [facility] KETONES UA Negative Negative 06/16/2020 4:41 AM [employer] OFFICER [employer] LABORATORY SERVICES - . [facility] UROBILINOGEN UA Normal <2.0 mg/dL 4:41 AM [facility] [employer] [facility] BILIRUBIN UA Negative Negative 06/16/2020 4:[address] [facility] [employer] [facility] - . [facility] BLOOD UA Negative Negative 06/16/2020 4:[address] [facility] [employer] [facility] - . [facility] WBC UA 0-2 0 - 2 /hpf 06/16/2020 4:41 AM [facility] [employer] [facility] - . [place] RBC UA 0-2 0 - 2 /hpf 06/16/2020 4:41 AM [facility] [employer] [facility] - . [place] BACTERIA UA Negative Negative /hpf 06/16/2020 4:41 AM [facility] [employer] [facility] - . [place] EPITHELIAL CELLS, URINE 0-5 0 - 5 /hpf 06/16/2020 4:41 AM [facility] [employer] [facility] Urine URINE SPECIMEN OBTAINED BY CLEAN CATCH PROCEDURE / Unknown Collection / Unknown 06/16/2020 1:55 AM [employer] OFFICER 06/16/2020 1:58 AM [employer] OFFICER Sofia Kelley MD URINE ORDERABLES [facility] [employer] [facility]# [id number] [address] [place] [address] * (ABNORMAL) TRIGLYCERIDE (06/15/2020 11:57 PM [employer] OFFICER) TRIGLYCERIDE 3,492(H) <150 mg/dL 06/16/2020 1:18 AM [facility] [employer] [facility] Blood Venipuncture / Unknown 06/15/2020 11:57 PM [employer] OFFICER 06/16/2020 12:07 AM [employer] OFFICER Narrative [employer] [facility] - 06/16/2020 1:18 AM [employer] OFFICER TRIGLYCERIDES ? mg/dL Normal ?< 150 Borderline High ?150 - 199 High ? 200 - 499 Very High ? >= 500 Based on AHA/NCEP Guidelines. Sofia Kelley MD CHEMISTRY ORDERABLE S [facility] [employer] [facility] CLIA# [id number] [address] [place] [address] * LIPASE (06/15/2020 11:57 PM [employer] OFFICER) LIPASE 36 13 - 60 U/L 06/16/2020 12:59 AM [facility] [employer] LABORATORY [facility] Blood Venipuncture / Unknown 06/15/2020 11:57 PM [employer] OFFICER 06/16/2020 12:07 AM [employer] OFFICER Sofia Kelley MD CHEMISTRY ORDERABLE S Performing Organization Address [facility]/ZIP Co de Phone Number [employer] [facility] CLIA# [id number] [address] [place] [address] * (ABNORMAL) COMPREHENSIVE METABOLIC PANEL (06/15/2020 11:57 PM [employer] OFFICER) SODIUM 131(L) 136 - 145 mmol/L 06/16/2020 4:33 AM [facility] [employer] LABORATORY [facility] POTASSIUM 4.1 3.5 - 5.0 mmol/L 06/16/2020 4:33 AM [facility] [employer] LABORATORY SERVICES [facility] Comment:Moderate hemolysis p resent. Can cause significant falsely elevated result. Redraw if indicated. CHLORIDE 97(L) 98 - 107 mmol/L 06/16/2020 4:33 AM [employer] OFFIC[employer] LABORATORY SERVICES [facility] CO2 21(L) 22 - 29 mmol/L 06/16/2020 4:33 AM [employer] OFFICER [employer] LABORATORY SERVICES [facility] CALCIUM 8.9 8.6 - 10.2 mg/dL 06/16/2020 4:33 AM [facility] [employer] LABORATORY [facility] BUN 7 6 - 20 mg/dL 06/16/2020 4:33 AM [facility] [employer] LABORATORY SERVICES [facility] CREATININE 0.39(L) 0.51 - 0.95 mg/dL 06/16/2020 4:33 AM [facility] [employer] LABORATORY [facility] GLUCOSE 272(H) 74 - 99 mg/dL 06/16/2020 4:33 AM [facility] TOTAL PROTEIN 6.7 6.7 - 8.6 g/dL 06/16/2020 4:[address] [facility] LABORATORY [facility] ALBUMIN 4.5 3.5 - 5.2 g/dL 06/16/2020 4:[address] [facility] LABORATORY [facility] BILIRUBIN TOTAL 0.2(L) 0.3 - 1.2 mg/dL 06/16/2020 4:33 AM [facility] ALKALINE PHOSPHATASE 63 35 - 104 U/L 06/16/2020 4:33 AM [facility] [employer] LABORATORY [facility] AST 15 <33 U/L 06/16/2020 4:33 AM [facility] Comment: Hemolysis present. ??Result may be falsely elevated. Cleared of chylomicrons. ALT 16 <34 U/L 06/16/2020 4:33 AM [facility] Comment: Hemolysis present. ??Result may be falsely elevated. Cleared of chylomicrons. GFR >60 >=60 mL/min/1.7 3 sq meter 06/16/2020 4:[address] [facility] [employer] [facility] Comment: eGFR has not been validated [...] mL/min/1.7 3 sq meter 06/16/2020 4:33 AM [facility] [employer] LABORATORY [facility] ANION GAP 13 8 - 16 mmol/L 06/16/2020 4:33 AM [facility] [employer] LABORATORY [facility] Blood Venipuncture / Unknown 06/15/2020 11:57 PM [employer] OFFICER 06/16/2020 12:07 AM [facility] [employer] LABORATORY SERVICES - [facility] - 06/16/2020 4:33 AM [employer] OFFICER Samples containing indocyanine green cause interferences on Total and/or Direct Bilirubin and must not be measured. Sofia Kelley MD CHEMISTRY ORDERABLE S [facility] [employer] SERVICES - [facility] CLIA# [id number] [address] [facility] [address] [address] * (ABNORMAL) CBC WITH DIFFERENTIAL (06/15/2020 11:57 PM [employer] OFFICER) WBC 11.6(H) 4.0 - 9.8 K/uL 06/16/2020 12:21 AM [facility] [employer] SERVICES - [facility] RBC 4.72 3.90 - 4.90 M/uL 06/16/2020 12:21 AM [facility] [employer] [facility] HEMOGLOBIN 14.4 11.8 - 14.8 g/dL 06/16/2020 12:21 AM [facility] [employer] SERVICES - [facility] HEMATOCRIT 41.9 35.5 - 44.0 % 06/16/2020 12:21 AM [facility] [employer] LABORATORY SERVICES - [facility] MCV 88.8 82.0 - 99.0 fL 06/16/2020 12:21 AM [facility] [employer] SERVICES - [facility] MCH 30.5 27.2 - 32.6 pg 06/16/2020 12:21 AM [facility] [employer] LABORATORY [facility] MCHC 34.4 31.5 - 35.5 g/dL 06/16/2020 12:21 AM [facility] [employer] SERVICES - [facility] RDW 13.7 11.5 - 14.5 % 06/16/2020 12:21 AM [facility] [employer] LABORATORY SERVICES - [facility] RDW-STDEV 44.7 37.1 - 48.7 fL 06/16/2020 12:21 AM [facility] [employer] SERVICES - [facility] PLATELETS 272 140 - 350 K/uL 06/16/2020 12:21 AM [facility] [employer] [facility] MPV 9.1(L) 9.3 - 12.4 fL 06/16/2020 12:21 AM [facility] [employer] SERVICES - [facility] NEUTROPHILS 69 % 06/16/2020 12:21 AM [facility] [employer] SERVICES - [facility] LYMPHOCYTES 23 % 06/16/2020 12:[address] [facility] [employer] [facility] MONOCYTES 6 % 06/16/2020 12:[address] [facility] [employer] [facility] EOSINOPHILS 1 % 06/16/2020 12:21 AM [facility] [employer] [facility] BASOPHILS 0 % 06/16/2020 12:[address] [facility] [employer] [facility] IMMATURE GRANULOCYTES 1 % 06/16/2020 12:21 AM [facility] [employer] LABORATORY SERVICES - [facility] Comment:IG (Immature Granulo cyte) count includes Metamyelocytes, Myelocytes, and Promyelocytes NEUTROPHIL ABSOLUTE 8.07(H) 1.90 - 7.00 K/uL 06/16/2020 12:21 AM [facility] [employer] [facility] LYMPHOCYTE ABSOLUTE 2.72 0.70 - 4.50 K/uL 06/16/2020 12:21 AM [facility] [employer] [facility] MONOCYTE ABSOLUTE 0.64 0.10 - 1.30 K/uL 06/16/2020 12:21 AM [facility] [employer] [facility] EOSINOPHIL ABSOLUTE 0.10 0.00 - 0.70 K/uL 06/16/2020 12:21 AM [facility] [employer] [facility] BASOPHILS ABSOLUTE 0.03 0.00 - 0.20 K/uL 06/16/2020 12:21 AM [facility] [employer] [facility] - . [facility] IMMATURE GRANULOCYTES ABSOLUTE 0.06(H) 0.00 - 0.03 K/uL 06/16/2020 12:21 AM [facility] [employer] [facility] Blood Venipuncture / Unknown 06/15/2020 11:57 PM [employer] OFFICER 06/16/2020 12:07 AM [employer] OFFICER Sofia Kelley MD HEMATOLOGY ORDERABL ES [facility] [employer] [id number] 5 [facility] [address] [address] documented in this encounter Visit Diagnoses Diagnosis [...] admin instructions, Routine Given 06/17/2020 2:45 AM [employer] OFFICER 650 mg Given 06/16/2020 7:31 PM [employer] OFFICER 650 mg atorvastatin (LIPITOR) tablet 80 mg 80 mg, Oral, DAILY AT BEDTIME, First dose on Katie 06/16/20 at 2100, Until Discontinued, Routine Given 06/17/2020 8:57 PM [employer] OFFICER 80 mg Given 06/16/2020 8:19 PM [employer] OFFICER 80 mg bisacodyL (DULCOLAX) rectal suppository 10 mg 10 mg, Rectal, DAILY PRN, Starting on Katie 06/16/20 at 0614, Until 06/18/20 at 1757, Constipation, Routine calcium GLUCONATE 2,000 mg in sodium chloride (iso-osmotic) 100 mL IVPB 2,000 mg, IV, ONE TIME ONLY, 1 dose, On Katie 06/16/20 at 1230, Routine Rate Change 06/16/2020 2:18 PM [employer] OFFICER 106.45 mL/hr Rate Change 06/16/2020 2:01 PM [employer] OFFICER 100 mL/hr New Bag 06/16/2020 1:18 PM [employer] OFFICER 2,000 mg 100 mL/hr citalopram (CeleXA) tablet 40 mg 40 mg, Oral, DAILY AT BEDTIME, First dose on Katie 06/16/20 at 2100, Until Discontinued, Routine, Previous Med: citalopram (CeleXA) 40 mg tablet - Orig Sig - Take 40 mg by mouth daily at bedtime. Given 06/17/2020 8:57 PM [employer] OFFICER 40 mg Given 06/16/2020 8:19 PM [employer] OFFICER 40 mg dextrose 5% - sodium chloride 0.45% infusion IV, at 125 mL/hr, CONTINUOUS, Starting on Katie 06/16/20 at 0500, Until 06/18/20 at 1757, Routine Bag Switched 06/18/2020 7:50 AM [employer] OFFICER 125 mL/hr Bag Switched 06/18/2020 12:06 AM [employer] OFFICER 125 mL/hr New Bag 06/17/2020 3:02 PM [employer] OFFICER 125 mL/hr dextrose 5% - sodium chloride [...] 1757, Constipation, Routine Given 06/18/2020 10:07 AM [employer] OFFICER 100 mg enoxaparin (LOVENOX) injection 40 mg 40 mg, subCUT, EVERY 24 HOURS, First dose on Katie 06/16/20 at 2100, Until Discontinued, Routine, Please adjust dose, or change to Heparin SQ if needed, based upon age, weight, renal function, etc. Thank you !, Indication: Prophylaxis of VTE, Dose to be adjusted per facility protocol? Yes Given 06/17/2020 8:59 PM [employer] OFFICER 40 mg Abdominal Tissue Given 06/16/2020 8:20 PM [employer] OFFICER 40 mg Ab dominal Tissue fenofibrate (LOFIBRA) tablet 160 mg 160 mg, Oral, DAILY, First dose on Katie 06/16/20 at 0900, Until Discontinued, Routine, Previous Med: fenofibrate (LOFIBRA) 160 mg Tablet - Orig Sig - TAKE 1 TABLET BY MOUTH EVERY DAY Patient taking differently: Take 160 mg by mouth daily. Given 06/18/2020 10:05 AM [employer] OFFICER 160 mg Given 06/17/2020 8:35 AM [employer] OFFICER 160 mg Given 06/16/2020 11:06 AM [employer] OFFICER 160 mg fentaNYL PF (SUBLIMAZE) 50 mcg/mL injection 100 mcg 100 mcg, IV, ONE TIME ONLY, 1 dose, On Katie 06/16/20 at 0130, Routine Given 06/16/2020 1:30 AM [employer] OFFICER 100 mcg fluconazole (DIFLUCAN) tablet 200 mg 200 mg, Oral, ONE TIME ONLY, 1 dose, On Katie 06/16/20 at 1730, Routine, Antibiotic Indication: Other: Enter in Comments, Antibiotic Indication: yeast infection, vaginal, Is sepsis suspected? Unlikely Given 06/16/2020 6:12 PM [employer] OFFICER 200 m g glucagon HCL 1 mg/mL injection 1 mg 1 mg, IM, SEE ADMIN INSTRUCTIONS, Starting on Katie 06/16/20 at 0612, Until 06/18/20 at 1757, Routine heparin, porcine (pf) 10 unit/mL IV syringe 20 Units 20 Units, IV, ONE TIME ONLY, 1 dose, On Katie 06/16/20 at 1230, Routine, Please tube to [phone], blood bank. Thank you! Given 06/16/2020 2:50 PM [employer] OFFICER 20 Units heparin, porcine lock flush (pf) 100 unit/mL injection 500 Units 500 Units, IV, ONE TIME ONLY, 1 dose, On Katie 06/16/20 at 1230, Routine, Please tube to 516, blood bank. Thank you! Given 06/16/2020 2:50 PM [employer] OFFICER 500 Units heparin, porcine lock flush (pf) 100 unit/mL injection 500 Units 500 Units, IV, ONE TIME ONLY, 1 dose, On Katie 06/16/20 at 1230, Routine, Please tube to 516, blood bank. Thank you! Given 06/16/2020 2:50 PM [employer] OFFICER 500 Units HYDROcodone-acetaminophen (NORCO) 5-325 mg per tablet 1 Tablet 1 Tablet, Oral, EVERY 4 HOURS PRN, Starting on Katie 06/16/20 at 0614, Until 06/18/20 at 1757, Pain (See admin instructions), Routine Given 06/18/2020 10:07 AM [employer] OFFICER 1 Tablet Given 06/18/2020 3:12 AM [employer] OFFICER 1 Tablet Given 06/17/2020 8:57 PM [employer] OFFICER 1 Tablet HYDROmorphone (DILAUDID) 2 mg/mL injection 0.5 mg 0.5 mg, IV, EVERY 3 HOURS PRN, Starting on Sat06/16/20 at 0447, Until Sat06/16/20 at 0730, Pain, Routine Given 06/16/2020 5:55 AM [employer] OFFICER 0.5 mg HYDROmorphone (DILAUDID) 2 mg/mL injection 0.5 mg 0.5 mg, IV, EVERY 1 HOUR PRN, Starting on Sat06/16/20 at 0730, Until Sat06/17/20 at 1159, Pain, Routine Given 06/17/2020 10:26 AM [employer] OFFICER 0.5 mg Given 06/17/2020 6:29 AM [employer] OFFICER 0.5 mg Given 06/17/2020 2:41 AM [employer] OFFICER 0.5 mg HYDROmorphone (DILAUDID) 2 mg/mL injection 1 mg 1 mg, IV, EVERY 2 HOURS PRN, Starting on Sat06/17/20 at 1200, Until 06/18/20 at 1757, Pain, Routine Given 06/18/2020 1:01 PM [employer] OFFICER 1 mg Given 06/18/2020 5:11 AM [employer] OFFICER 1 mg Given 06/17/2020 11:01 PM [employer] OFFICER 1 mg insulin glargine (LANTUS) injection 6 Units 6 Units, subCUT, DAILY, First dose on 06/18/20 at 0630, Until Discontinued, Routine Given 06/18/2020 10:05 AM [employer] OFFICER 6 Units Arm, Left Upper insulin lispro [...] at 0620 New Bag 06/18/2020 5:04 AM [employer] OFFICER 2.2 Units/hr 2.2 mL/hr Rate Verify 06/18/2020 4:18 AM [employer] OFFICER 3.2 Units/hr 3.2 mL/hr Rate Change 06/18/2020 2:51 AM [employer] OFFICER 3.2 Units/hr 3.2 mL/hr levothyroxine (SYNTHROID) tablet 200 mcg 200 mcg, Oral, DAILY EARLY, First dose on Katie 06/16/20 at 0830, Until Discontinued, Routine, Previous Med: levothyroxine 200 mcg tablet - Orig Sig - Take 1 Tablet (200 mcg) by mouth daily. Take along with 50 mcg tab =250 mcg total daily Dose change Given 06/18/2020 6:18 AM [employer] OFFICER 200 mcg Given 06/17/2020 6:25 AM [employer] OFFICER 200 mcg Given 06/16/2020 11:06 AM [employer] OFFICER 200 mcg levothyroxine (SYNTHROID) tablet 50 mcg 50 mcg, Oral, DAILY EARLY, First dose on Sat06/16/20 at 0830, Until Discontinued, Routine, Previous Med: levothyroxine 50 mcg tablet - Orig Sig - Take 1 Tablet (50 mcg) by mouth daily in the morning. Take along with 200 mcg tab =250 mcg daily Given 06/18/2020 6:18 AM [employer] OFFICER 50 mcg Given 06/17/2020 6:25 AM [employer] OFFICER 50 mcg Given 06/16/2020 11:05 AM [employer] OFFICER 50 mcg LORazepam (ATIVAN) tablet 1 mg 1 mg, Oral, TWO TIMES DAILY PRN, Starting on Sat06/16/20 at 0726, Until 06/18/20 at 1757, Anxiety, Routine, Previous Med: LORazepam (ATIVAN) 1 mg tablet - Orig Sig - Take 1 mg by mouth 2 times daily as needed for Anxiety . Given 06/18/2020 10:07 AM [employer] OFFICER 1 mg Given 06/17/2020 10:24 AM [employer] OFFICER 1 mg magnesium hydroxide (MILK OF MAGNESIA) oral suspension 30 mL 30 mL, Oral, DAILY PRN, Starting on Sat06/16/20 at 0614, Until 06/18/20 at 1757, Constipation, Routine morphine 4 mg/mL injection 4 mg 4 mg, IV, ONE TIME ONLY, 1 dose, On Sat06/15/20 at 2315, Routine Given 06/15/2020 11:59 PM [employer] OFFICER 4 mg morphine injection 8 mg 8 mg, IV, ONE TIME ONLY, 1 dose, On Sat06/16/20 at 0045, Routine Given 06/16/2020 12:48 AM [employer] OFFICER 8 mg naloxone (NARCAN) 0.4 mg/mL injection [...] at 2315, Routine Given 06/15/2020 11:58 PM [employer] OFFICER 4 mg ondansetron (ZOFRAN) 4 mg/2 mL injection 4 mg 4 mg, IV, EVERY 6 HOURS PRN, Starting on Sat06/16/20 at 0447, Until Sat06/16/20 at 0618, Nausea/Emesis, Routine Given 06/16/2020 6:01 AM [employer] OFFICER 4 mg ondansetron (ZOFRAN) 4 mg/2 mL injection 4 mg 4 mg, IV, EVERY 6 HOURS PRN, Starting on Sat06/16/20 at 0614, Until 06/18/20 at 1757, Nausea/Emesis, Routine Given 06/16/2020 3:15 PM [employer] OFFICER 4 mg oxyCODONE (ROXICODONE) tablet 10 mg 10 mg, Oral, EVERY 6 HOURS, First dose on Sat06/17/20 at 1215, Until Discontinued, Routine Given 06/18/2020 12:2 5 PM [employer] OFFICER 10 mg Given 06/18/2020 6:00 AM [employer] OFFICER 10 mg Given 06/18/2020 12:06 AM [employer] OFFICER 10 mg pantoprazole (PROTONIX) tablet 40 mg 40 mg, Oral, TWO TIMES DAILY BEFORE BREAKFAST AND AT BEDTIME, First dose on Sat06/16/20 at 0745, Until Discontinued, Routine, Previous Med: pantoprazole (PROTONIX) 40 mg Tablet, Delayed Release (E.C.) - Orig Sig - Take 40 mg by mouth 2 times daily . , Indication: Gastroesophageal reflux disease (GERD) Given 06/18/2020 10:06 AM [employer] OFFICER 40 m g Given 06/17/2020 8:57 PM [employer] OFFICER 40 mg Given 06/17/2020 8:35 AM [employer] OFFICER 40 mg prochlorperazine maleate (COMPAZINE) tablet 10 mg 10 mg, Oral, EVERY 6 HOURS PRN, Starting on Katie 06/16/20 at 0614, Until 06/18/20 at 1757, Nausea/Emesis, Routine sodium chloride (OCEAN) 0.65 % nasal soln 2 Eckerman 2 Eckerman, Both Nostrils, EVERY 15 MINUTES PRN, Starting on 06/18/20 at 0518, Until 06/18/20 at 1757, as needed for nasal congestion, Routine Given 06/18/2020 6:20 AM [employer] OFFICER 2 Sprays sodium chloride 0.9% bolus solution 1,000 mL 1,000 mL, IV, ONE TIME ONLY, 1 dose, On Sat06/15/20 at 2315, at 999 mL/hr, Administer over 60 Minutes, Routine New Bag 06/16/2020 12:01 AM [employer] OFFICER 1,000 mL 999 mL/hr sodium chloride 0.9% bolus solution 500 mL 500 mL, IV, ONE TIME ONLY, 1 dose, On Sat06/16/20 at 1345, at 999 mL/hr, Administer over 30 Minutes, Stat New Bag 06/16/2020 1:46 PM [employer] OFFICER 500 mL 999 mL/hr traZODone (DESYREL) tablet 100 mg 100 mg, Oral, DAILY AT BEDTIME, First dose on Sat06/16/20 at 2100, Until Discontinued, Routine, Previous Med: traZODone (DESYREL) 100 mg tablet - Orig Sig - Take 100 mg by mouth daily at bedtime . Given 06/17/2020 8:57 PM [employer] OFFICER 100 mg Given 06/16/2020 8:19 PM [employer] OFFICER 100 mg documented in this encounter Active and Recently Administered Medications Times are shown in [employer]ICER. Scheduled Medication Order 06/16/2020 06/17/2020 06/18/2020 atorvastatin [...] Provider: Yesy Anders RN)0901 (Paused - Provider: Skylre Willett RN)0901 (New Bag - Provider: Yesy Anders, RN)1000 (Rate Change - Provider: Yesy Anders, RN)1100 (Rate Verify - Provider: Skyler Willett, RN)1209 (Paused - Provider: Skyler Willett, RN)1210 (Rate Change - Provider: Skyler Wileltt, RN)1210 (Rate Verify - Provider: Skyler Willett, [...] Roman Hensley RN - Comment: 1130 BG [id number] BG 170 Insulin rate increased to 3 ml/hr)1335 (Rate Change - Provider: Roman Hensley RN - Comment: 1230 BG [id number] BG 131insulin infusion rate decreased to 2 ml/hr)1658 (Rate Change - Provider: Roman Hensley RN - Comment: 1530 bg [id number] BG 184insulin infusion rate increased to 3 ml/hr)1756 (Bag Switched - Provider: Roman Hensley RN - Comment: 1630 BG [id number] BG 204Insulin infusion rate increased to 5 ml/hr)1844 (Rate Change - Provider: Roman Hensley RN - Comment: [id number] 235Insulin infusion increased to 7 ml/hr)2006 (Rate [...] chloride (OCEAN) 0.65 % nasal soln 2 Eckerman 2 Eckerman, Both Nostrils, EVERY 15 MINUTES PRN, Starting on 06/18/20 at 0518, Until 06/18/20 at 1757, as needed for nasal congestion, Routine 0620 (Given - Provider: BLAISE Silveira) documented in this encounter Care Teams [employer] Relationship Specialty Start Date End Date Guerrero Middleton PA-C PCP - General Physician [facility] 02/13/18 documented as of this encounter
--- OUTSIDE RECORDS SUMMARY | 2024-05-03 21:53 | XMS_ITS | Encounter Summary ---
Author Organization [facility] Address [address] [place] [address] Care Team Providers Care Photo Checker And Assembler Name Role Phone Guerrero Middleton PA-C Primary Care Provide r Encounter Details Date Type Department Care Team (Latest Contact Info) Description 05/04/2020 11:00 AM ASSISTANT BOOKKEEPER - 05/04/2020 11:59 PM [facility] Hospital Encounter [facility] Donor Services [address] [phone] Alize Arteaga MD NO ADDRESS ON FILE [...] COVID-19? No / Unsure 05/04/2020 11:53 AM ASSISTANT BOOKKEEPER documented as of this encounter Last Filed Vital Signs Vital Sign Reading Time Taken Comments Blood Pressure 115/80 05/04/2020 2:15 PM ASSISTANT BOOKKEEPER Pulse 89 05/04/2020 2:15 PM ASSISTANT BOOKKEEPER Temperature 37.1 ??C (98.7 ??F) 05/04/2020 2:15 PM CS T Respiratory Rate 18 05/04/2020 2:15 PM ASSISTANT BOOKKEEPER Oxygen Saturation - - Inhaled Oxygen Concentration - - Weight 85.7 kg (189 lb) 05/04/2020 12:06 PM ASSISTANT BOOKKEEPER Height 165.1 cm (5' 5 ) 05/04/2020 12:06 PM ASSISTANT BOOKKEEPER Body Mass Index 31.45 05/04/2020 12:06 PM ASSISTANT BOOKKEEPER documented in this encounter Medications at Time [...] procedure is scheduled for 06/01/2019 at 0900. STANT BOOKKEEPER * Alize Arteaga MD - 05/04/2020 11:00 AM CST CC: ??44??yo female undergoing prophylaxis for??hypertriglyceridemic pancreatitis in the setting of?recurrent necrotizing pancreatitis requires??plasma exchange. ?? Interval history:??Patient feeling ok physically.Patient reports that she has not been compliant with her diabetes medications due to significant increase in cost while in the donut hole . She relates that she has been taking chcf, but not short term insulin. She intends to talk to Dr. Gates today regarding this. Patient is also under a lot of stress regarding her younger sister being hospitalized in the ICU at [facility] with COVID pneumonia. PMH: ??Hypertriglyceridemia (associated with [...] the procedure. ?? Alize Arteaga MD, PhD Chip Unloader, therapeutic apheresis service [phone] ?? Procedure??notes:?L and??R bard ports??used for procedure. ??Patient tolerated procedure well.?? STANT BOOKKEEPER documented in this encounter Plan of Treatment Upcoming Encounters Date Type Department Care Team (Late st Contact Info) Description 09/14/2024 3:00 PM CDT Office Visit [facility] Heart and Vascular - [facility] [address] [address] [address] [place] [address] Marlys Mayer MD [address] [facility] [address] [place] [address] documented as of this encounter Procedures Procedure Name Priority Date/Time Associated Diagnosis Comments TRIGLYCERIDE Routine 05/04/2020 12:35 PM ASSISTANT BOOKKEEPER Mixed hyperlipidemia TSH Routine 05/04/2020 12:35 PM ASSISTANT BOOKKEEPER Acquired hypothyroidism documented in this encounter Results * (ABNORMAL) TSH (05/04/2020 12:35 PM ASSISTANT BOOKKEEPER) TSH 33.30(H) 0.27 - 4.20 uIU/mL 05/04/2020 4:[address] [facility] Blood Collection / Unknown 05/04/2020 12:35 PM ASSISTANT BOOKKEEPER 05/04/2020 12:41 PM ASSISTANT BOOKKEEPER Prudence Gates MD CHEMISTRY ORDERAB LES [facility] CLIA# [id number] [address] [place] [address] * (ABNORMAL) TRIGLYCERIDE (05/04/2020 12:35 PM ASSISTANT BOOKKEEPER) TRIGLYCERIDE 1,907(H) <150 mg/dL 05/04/2020 1:[address] [facility] Blood Collection / Unknown 05/04/2020 12:35 PM ASSISTANT BOOKKEEPER 05/04/2020 12:41 PM ASSISTANT BOOKKEEPER Narrative [facility] - 05/04/2020 1:36 PM ASSISTANT BOOKKEEPER TRIGLYCERIDES ? mg/dL Normal ?< 150 Borderline High ?150 - 199 High ? 200 - 499 Very High ? >= 500 Based on AHA/NCEP Guidelines. Alize Arteaga MD CHEMISTRY ORDER [facility] [employer] [facility] CLIA# [id number] [address] [place] [address] documented in this encounter Visit Diagnoses Diagnosis [...] 1130, Routine New Bag 05/04/2020 12:40 PM ASSISTANT BOOKKEEPER 2,000 mg 135 mL/hr heparin, porcine (pf) 10 unit/mL IV syringe 20 Units 20 Units, IV, ONE TIME ONLY, 1 dose, On Sat05/04/20 at 1130, Routine, Please tube to 516, Blood bank. Thank you! Given 05/04/2020 2:02 PM ASSISTANT BOOKKEEPER 20 Units heparin, porcine lock flush (pf) 100 unit/mL injection 500 Units 500 Units, IV, ONE TIME ONLY, 1 dose, On Sat05/04/20 at 1130, Routine, Please tube to 516, Blood bank. Thank you! Given 05/04/2020 2:03 PM ASSISTANT BOOKKEEPER 500 Units heparin, porcine lock flush (pf) 100 unit/mL injection 500 Units 500 Units, IV, ONE TIME ONLY, 1 dose, On Sat05/04/20 at 1130, Routine, Please tube to 516, Blood bank. Thank you! Given 05/04/2020 2:03 PM ASSISTANT BOOKKEEPER 500 Units documented in this encounter Care Teams Photo Checker And Assembler Relationship Specialty Start Date End Date Guerrero Middleton PA-C PCP - General Physician Microsoft Office Instructor 02/13/18 documented as of this encounter
--- OUTSIDE RECORDS SUMMARY | 2024-05-03 21:53 | XMS_ITS | Encounter Summary ---
Author Organization [facility] Address [address] [place] [address] Care Team Providers Care Senior Operations Manager Name Role Phone Guerrero Middleton PA-C Primary Care Provide r Reason for Visit * Reason Onset Date Comments Medication Refill 05/05/2020 Encounter Details Date Type Department Care Team (Late st Contact Info) Description 05/05/2020 Refill [facility] Endocrinology [address] [place] [address] Prudence Gates MD [address] [place] [address] Social History Tobacco Use Types [...] COVID-19? No / Unsure 05/04/2020 11:53 AM LIFE INSURANCE AGENT documented as of this encounter Miscellaneous Notes * Telephone Encounter - Lexus Iyer - 05/05/2020 1:51 PM CST ANGELES: 05/04/2020 NOV: 09/15/2020 INSURANCE AGENT documented in this encounter Plan of Treatment Upcoming Encounters Date Type Department Care Team (Late st Contact Info) Description 09/14/2024 3:00 PM CDT Office Visit [facility] Heart and Vascular - [place] [address] [address] [address] [facility] [place] [address] Marlys Mayer MD [address] [place] [address] documented as of this encounter Visit Diagnoses Not on filedocumented in this encounter Care Teams Senior Operations Manager Relationship Specialty Start Date End Date Guerrero Middleton PA-C PCP - General Physician Street Light Servicer Supervisor 02/13/18 documented as of this encounter
--- OUTSIDE RECORDS SUMMARY | 2024-05-03 21:53 | XMS_ITS | Encounter Summary ---
Author Organization [facility] Address [address] [place] [address] Care Team Providers Care Rabbler Name Role Phone Guerrero Middleton PA-C Primary Care Provide r Encounter Details Date Type Department Care Team (Latest Contact Info) Description 04/13/2020 9:30 AM BROTH MIXER - 04/13/2020 11:59 PM [facility] Hospital Encounter [facility] Donor Services [address] [address] Alize Arteaga MD NO [...] often do you attend chur ch or adventist services? Never 08/21/2018 Do you [...] COVID-19? No / Unsure 04/13/2020 9:27 AM BROTH MIXER documented as of this encounter Last Filed Vital Signs Vital Sign Reading Time Taken Comments Blood Pressure 106/70 04/13/2020 11:46 AM BROTH MIXER Pulse 83 04/13/2020 11:46 AM BROTH MIXER Temperature 36.7 ??C (98.1 ??F) 04/13/2020 11:[address] Respiratory Rate 16 04/13/2020 11:46 AM BROTH MIXER Oxygen Saturation - - Inhaled Oxygen Concentration [...] Pt left BDS A/Ox4 in stable condition. H MIXER * Alize Arteaga MD - 04/13/2020 9:30 [...] the procedure. ?? Alize Arteaga MD, PhD Counseling Center Director, therapeutic apheresis service [phone] ?? Procedure??notes:?L and??R bard ports??used for procedure. ??Patient tolerated procedure well. H MIXER documented in this encounter Plan of Treatment Upcoming Encounters Date Type Department Care Team (Late st Contact Info) Description 09/14/2024 3:00 PM CDT Office Visit [facility] Heart and Vascular - [facility] [address] [address] [place] [address] Marlys Mayer MD [address] [place] [address] documented as of this encounter Procedures Procedure Name Priority Date/Time Associated Diagnosis Comments CBC WITHOUT DIFFERENTIAL Routine 04/13/2020 10:00 AM BROTH MIXER Hypertriglyceridemi a TRIGLYCERIDE Routine 04/13/2020 10:00 AM BROTH MIXER Hypertriglyceridemi a documented in this encounter Results * (ABNORMAL) CBC WITHOUT DIFFERENTIAL (04/13/2020 10:00 AM BROTH MIXER) WBC 8.4 4.0 - 9.8 K/uL 04/13/2020 10:20 AM [facility] [employer] [facility] RBC 4.57 3.90 - 4.90 M/uL 04/13/2020 10:20 AM [facility] [employer] [facility] HEMOGLOBIN 13.7 11.8 - 14.8 g/dL 04/13/2020 10:20 AM [facility] [employer] [facility] HEMATOCRIT 41.8 35.5 - 44.0 % 04/13/2020 10:20 AM [facility] [employer] [facility] MCV 91.5 82.0 - 99.0 fL 04/13/2020 10:20 AM [facility] [employer] [facility] MCH 30.0 27.2 - 32.6 pg 04/13/2020 10:20 AM [facility] [employer] [facility] MCHC 32.8 31.5 - 35.5 g/dL 04/13/2020 10:20 AM [facility] [employer] [facility] PLATELETS 252 140 - 350 K/uL 04/13/2020 10:20 AM [facility] [employer] [facility] MPV 9.2(L) 9.3 - 12.4 fL 04/13/2020 10:20 AM [facility] [employer] [facility] RDW 15.2(H) 11.5 - 14.5 % 04/13/2020 10:20 AM [facility] [employer] [facility] RDW-STDEV 50.8(H) 37.1 - 48.7 fL 04/13/2020 10:20 AM [facility] [employer] [facility] Blood Venipuncture / Unknown 04/13/2020 10:00 AM BROTH MIXER 04/13/2020 10:12 AM BROTH MIXER Alize Arteaga MD HEMATOLOGY YONI SERRANO [facility] [employer] [facility] [id number] [address] [facility] [place] [address] * (ABNORMAL) TRIGLYCERIDE (04/13/2020 10:00 AM BROTH MIXER) Pathologist [facility] TRIGLYCERIDE 1,477(H) <150 mg/dL 04/13/2020 11:11 AM [facility] [employer] [facility] Blood Venipuncture / Unknown 04/13/2020 10:00 AM BROTH MIXER 04/13/2020 10:12 AM BROTH MIXER Narrative [facility] - 04/13/2020 11:11 AM BROTH MIXER TRIGLYCERIDES ? mg/dL Normal ?< 150 Borderline High ?150 - 199 High ? 200 - 499 Very High ? >= 500 Based on AHA/NCEP Guidelines. Alize Arteaga MD CHEMISTRY ORDER [facility] [employer] [facility] CLIA# [id number] [address] [facility] [place] [address] documented in this encounter Visit Diagnoses Diagnosis [...] 0900, Routine New Bag 04/13/2020 10:18 AM BROTH MIXER 2,000 mg 135 mL/hr heparin, porcine (pf) 10 unit/mL IV syringe 20 Units 20 Units, IV, ONE TIME ONLY, 1 dose, On Sat04/13/20 at 0900, Routine, Please tube to 516, Thank you! Given 04/13/2020 11:36 AM BROTH MIXER 20 Units heparin, porcine lock flush (pf) 100 unit/mL injection 500 Units 500 Units, IV, ONE TIME ONLY, 1 dose, On Sat04/13/20 at 0900, Routine, Please tube to 516, Thank you! Given 04/13/2020 11:36 AM BROTH MIXER 500 Units heparin, porcine lock flush (pf) 100 unit/mL injection 500 Units 500 Units, IV, ONE TIME ONLY, 1 dose, On Sat04/13/20 at 0900, Routine, Please tube to 516, Thank you! Given 04/13/2020 11:36 AM BROTH MIXER 500 Units documented in this encounter Care Teams Rabbler Relationship Specialty Start Date End Date Guerrero Middleton PA-C PCP - General Physician Sweetbread Trimmer 02/13/18 documented as of this encounter
--- OUTSIDE RECORDS SUMMARY | 2024-05-03 21:53 | XMS_ITS | Encounter Summary ---
Author Organization [facility] Address [address] [place] [address] Care Team Providers Care Cash Applications Coordinator Name Role Phone Guerrero Middleton PA-C Primary Care Provide r Reason for Visit * Reason Comments Diabetes type 2 Encounter Details Date Type Department Care Team (Late st Contact Info) Description 05/04/2020 2:45 PM FINANCIAL INSTITUTION TREASURER Office Visit [facility] Endocrinology [address] [place] [address] Prudence Gates MD [address] [place] [address] Uncontrolled type 2 diabetes mellitus [...] COVID-19? No / Unsure 05/04/2020 11:53 AM FINANCIAL INSTITUTION TREASURER documented as of this encounter Last Filed Vital Signs Vital Sign Reading Time Taken Comments Blood Pressure 108/70 05/04/2020 2:41 PM FINANCIAL INSTITUTION TREASURER Pulse 84 05/04/2020 2:41 PM FINANCIAL INSTITUTION TREASURER Temperature - - Respiratory Rate - - Oxygen Saturation - - Inhaled Oxygen Concentration - - Weight 86.2 kg (190 lb) 05/04/2020 2:41 PM FINANCIAL INSTITUTION TREASURER Height 165.1 cm (5' 5 ) 05/04/2020 2:41 PM FINANCIAL INSTITUTION TREASURER Body Mass Index 31.62 05/04/2020 2:41 PM FINANCIAL INSTITUTION TREASURER documented in this encounter Progress Notes * [...] fenofibrate 160 mg. She went to the [facility] and was told to stop [...] of left power flow port 05/11/2019 ??? [place] ESOPHAGOGASTRODUODENOSCOPY TRANSORAL DIAGNOSTIC N/A 03/08/2018 ESOPHAGOGASTRODUODENOSCOPY performed by Ceasar Vega MD at [email or web address] GI LAB Family History Problem Relation Name [...] 07:05 AM Lab Results Component Value Date/Time [id number] 51 08/10/2011 07:21 AM [id number] 6 08/10/2011 07:21 AM [id number] 57 08/10/2011 07:21 AM Lab Results Component Value Date/Time WBC 8.4 04/13/2020 10:00 AM HGB 13.7 04/13/2020 10:00 AM HCT 41.8 04/13/2020 10:00 AM PLT 252 04/13/2020 10:00 AM MCV 91.5 04/13/2020 10:00 AM No results found for: MICROALBUMIN, MALBUR, YKUOJM52, MICRCREATR, MICRALBURINE Lab Results Component Value Date/Time [...] to contact us, Sincerely yours Prudence Gates NCIAL INSTITUTION TREASURER documented in this encounter Plan of Treatment Upcoming Encounters Date Type Department Care Team (Late st Contact Info) Description 09/14/2024 3:00 PM CDT Office Visit [facility] Heart and Vascular - [facility] [address] [address] [facility] [address] [place] [address] Marlys Mayer MD [address] [place], [place] [id number] documented as of this encounter Results * (ABNORMAL) TSH (05/04/2020 12:35 PM FINANCIAL INSTITUTION TREASURER) TSH 33.30(H) 0.27 - 4.20 uIU/mL 05/04/2020 4:26 PM FINANCIAL INSTITUTION TREASURER [facility] Blood Collection / Unknown 05/04/2020 12:35 PM FINANCIAL INSTITUTION TREASURER 05/04/2020 12:41 PM FINANCIAL INSTITUTION TREASURER Prudence Gates MD CHEMISTRY ORDERAB LES [facility] CLIA# [id number] [address] [facility] [address] documented in this encounter Visit Diagnoses Diagnosis Uncontrolled type 2 diabetes mellitus with insulin therapy- Primary Type II or unspecified type diabetes mellitus without mention of complication, uncontrolled Familial hypertriglyceridemia Pure hyperglyceridemia Acquired hypothyroidism Unspecified hypothyroidism Tobacco dependence Tobacco use disorder Non-compliance Personal history of noncompliance with medical treatment, presenting hazards to health documented in this encounter Care Teams Cash Applications Coordinator Relationship Specialty Start Date End Date Emi, Guerrero Ceasar, PA-C PCP - General Physician Continuous Loft Operator 02/13/18 documented as of this encounter
--- OUTSIDE RECORDS SUMMARY | 2024-05-03 21:53 | XMS_ITS | Encounter Summary ---
Author Organization [facility] Address [address] [place] [address] Care Team Providers Care Laboratory Tech Name Role Phone Guerrero Middleton PA-C Primary Care Provide r Reason for Visit * Reason Onset Date Comments Needs Form Or Letter Filled Out 05/16/2020 JOHNATHAN Avalos Encounter Details Date Type Department Care Team (Late st Contact Info) Description 05/16/2020 Telephone [facility] Endocrinology [address] [place] [address] Prudence Gates MD [address] [place] [address] Needs Form Or Letter Filled [...] COVID-19? No / Unsure 05/04/2020 11:53 AM LEGAL OPERATIONS MANAGER documented as of this encounter Miscellaneous Notes * Telephone Encounter - Susan Estrada RN - 05/16/2020 12:11 PM CST PA needed for Dexcom sensor and transmitters at [facility]. Rx sent to local [facility]. Chart notes faxed to [facility] Medicare [facility]GM at [phone]. L OPERATIONS MANAGER documented in this encounter Plan of Treatment Upcoming Encounters Date Type Department Care Team (Late st Contact Info) Description 09/14/2024 3:00 PM CDT Office Visit [facility] [address] [address] [place] [address] Marlys Mayer MD [address] [place] [address] documented as of this encounter Visit Diagnoses Not on filedocumented in this encounter Care Teams Laboratory Tech Relationship Specialty Start Date End Date Guerrero Middleton PA-C PCP - General Physician Automotive Consultant 02/13/18 documented as of this encounter
--- OUTSIDE RECORDS SUMMARY | 2024-05-03 21:53 | XMS_ITS | Encounter Summary ---
Author Organization [facility] Address [address] Orozco: Epic Prelude ADT [place] [address] Care Team Providers Care Trail Construction Worker Name Role Phone Guerrero Middleton PA-C [...] often do you attend caro center or judaism services? Never 08/21/2018 Do you [...] COVID-19? No / Unsure 06/08/2020 9:32 AM SHRINK PIT SUPERVISOR documented as of this encounter Plan of Treatment Upcoming Encounters Date Type Department Care Team (Late st Contact Info) Description 09/14/2024 3:00 PM CDT Office Visit [facility] [address] [address] [address] [place] [address] Marlys Mayer MD [address] [place] [address] documented as of this encounter Visit Diagnoses Not on filedocumented in this encounter Care Teams Trail Construction Worker Relationship Specialty Start Date End Date Guerrero Middleton PA-C PCP - General Physician Back End Developer 10/18/18 documented as of this encounter
--- OUTSIDE RECORDS SUMMARY | 2024-05-03 21:53 | XMS_ITS | Encounter Summary ---
Author Organization [facility] Address [address] [place] [address] Care Team Providers Care Auto Haulaway Driver Name Role Phone Guerrero Middleton PA-C Primary Care Provide r Encounter Details Date Type Department Care Team (Latest Contact Info) Description 03/16/2020 9:30 AM DORMITORY SUPERVISOR - 03/16/2020 11:59 PM [facility] Hospital Encounter [facility] Donor Services [address] [address] Alize Arteaga MD NO ADDRESS [...] COVID-19? No / Unsure 03/16/2020 9:12 AM DORMITORY SUPERVISOR documented as of this encounter Last Filed Vital Signs Vital Sign Reading Time Taken Comments Blood Pressure 102/69 03/16/2020 11:12 AM DORMITORY SUPERVISOR Pulse 93 03/16/2020 11:12 AM DORMITORY SUPERVISOR Temperature 36.9 ??C (98.4 ??F) 03/16/2020 11:[address] Respiratory Rate 18 03/16/2020 11:12 AM DORMITORY SUPERVISOR Oxygen Saturation - - Inhaled Oxygen [...] Pt left in stable condition with . ITORY SUPERVISOR * Alize Arteaga MD - 03/16/2020 9:30 [...] triglycerides were rapidly lowered with apheresis, but Casandra was unable to tolerate oral nutrition due [...] the procedure. ?? Alize Arteaga MD, PhD Income Tax Administrator, therapeutic apheresis service [phone] ?? Procedure??notes:?L and??R bard ports??used for procedure. ??Patient tolerated procedure well. ITORY SUPERVISOR documented in this encounter Plan of Treatment Upcoming Encounters Date Type Department Care Team (Late st Contact Info) Description 09/14/2024 3:00 PM CDT Office Visit [facility] Heart and Vascular - [place] [address] [place] [address] Marlys Mayer MD [address] [place] [address] documented as of this encounter Procedures Procedure Name Priority Date/Time Associated Diagnosis Comments TRIGLYCERIDE Stat 03/16/2020 9:54 AM DORMITORY SUPERVISOR Hypertriglyceridemia documented in this encounter Results * (ABNORMAL) TRIGLYCERIDE (03/16/2020 9:54 AM DORMITORY SUPERVISOR) TRIGLYCERIDE 539(H) <150 mg/dL 03/16/2020 10:26 AM DORMITORY SUPERVISOR [facility] Blood Venipuncture / Unknown 03/16/2020 9:54 AM DORMITORY SUPERVISOR 03/16/2020 9:56 AM DORMITORY SUPERVISOR Narrative [facility] - 03/16/2020 10:26 AM DORMITORY SUPERVISOR TRIGLYCERIDES ? mg/dL Normal ?< 150 Borderline High ?150 - 199 High ? 200 - 499 Very High ? >= 500 Based on AHA/NCEP Guidelines. Alize Arteaga MD CHEMISTRY ORDER [facility]# [id number] [address] [facility] [facility] [place] [address] documented in this encounter Visit Diagnoses Diagnosis [...] 1107, Routine New Bag 03/16/2020 10:07 AM DORMITORY SUPERVISOR 2,000 mg 135 mL/hr heparin, porcine (pf) 10 unit/mL IV syringe 20 Units 20 Units, IV, ONE TIME ONLY, 1 dose, On Sat03/16/20 at 0930, Routine, Please tube to 516, thanks! Given 03/16/2020 11:15 AM DORMITORY SUPERVISOR 20 Units heparin, porcine lock flush (pf) 100 unit/mL injection 500 Units 500 Units, IV, ONE TIME ONLY, 1 dose, On Sat03/16/20 at 0930, Routine, Please tube to 516, thanks! Given 03/16/2020 11:15 AM DORMITORY SUPERVISOR 500 Units heparin, porcine lock flush (pf) 100 unit/mL injection 500 Units 500 Units, IV, ONE TIME ONLY, 1 dose, On Sat03/16/20 at 0930, Routine, Please tube to 516, thanks! Given 03/16/2020 11:15 AM DORMITORY SUPERVISOR 500 Units documented in this encounter Care Teams Auto Haulaway Driver Relationship Specialty Start Date End Date Guerrero Middleton PA-C PCP - General Physician Database Analyst 02/13/18 documented as of this encounter
--- OUTSIDE RECORDS SUMMARY | 2024-05-03 21:53 | XMS_ITS | Encounter Summary ---
Author Organization [facility] Address [address] [place] [address] Care Team Providers Care Lozenge Maker Helper Name Role Phone Guerrero Middleton PA-C Primary Care Provide r Reason for Visit * Reason Onset Date Comments Results 05/04/2020 Encounter Details Date Type Department Care Team (Late st Contact Info) Description 05/04/2020 Telephone [facility] Endocrinology [address] [place] [address] Prudence Gates MD [address] [place] [address] Results Social History Tobacco Use [...] COVID-19? No / Unsure 05/04/2020 11:53 AM CARD PUNCHING MACHINE OPERATOR documented as of this encounter Miscellaneous Notes * Telephone Encounter - Suze Jackson - 05/11/2020 4:31 PM CST Informed pt per md note below Rx [facility] order pended for md signature Pt has plenty of the 200's rioght now , just needs the 50.s PUNCHING MACHINE OPERATOR * Telephone Encounter - Prudence Gates MD - 05/11/2020 4:17 PM CARD PUNCHING MACHINE OPERATOR Yes, please PUNCHING MACHINE OPERATOR * Telephone Encounter - Suze Jackson - [...] sure you still want dose increase ? PUNCHING MACHINE OPERATOR * Telephone Encounter - Suze Jackson - 05/04/2020 5:25 PM CST ----- Message from Prudence Gates MD sent at 05/04/2020 5:00 PM CARD PUNCHING MACHINE OPERATOR ----- Suze her TSH is very high, [...] be like this. .TSH in 6 weeks PUNCHING MACHINE OPERATOR documented in this encounter Plan of Treatment Upcoming Encounters Date Type Department Care Team (Late st Contact Info) Description 09/14/2024 3:00 PM CDT Office Visit [facility] Heart and Vascular - [facility] [address] [address] [facility] [address] [place] [address] Marlys Mayer MD [address] [place] [address] documented as of this encounter Results * TSH (06/08/2020 9:49 AM CARD PUNCHING MACHINE OPERATOR) TSH 1.44 0.27 - 4.20 uIU/mL 06/08/2020 11:08 AM CARD PUNCHING MACHINE OPERATOR [facility] LABORATORY [facility] Blood Venipuncture / Unknown 06/08/2020 9:49 AM CARD PUNCHING MACHINE OPERATOR 06/08/2020 10:12 AM CARD PUNCHING MACHINE OPERATOR Prudence Gates MD CHEMISTRY ORDERAB LES [facility] CLIA# [id number] [address] [place] [address] documented in this encounter Visit Diagnoses Diagnosis Acquired hypothyroidism- Primary Unspecified hypothyroidism documented in this encounter Care Teams Lozenge Maker Helper Relationship Specialty Start Date End Date Guerrero Middleton PA-C PCP - General Physician Driver Medic 02/13/18 documented as of this encounter
--- OUTSIDE RECORDS SUMMARY | 2024-05-03 21:53 | XMS_ITS | Encounter Summary ---
Author Organization [facility] Address [address] [place] [address] Care Team Providers Care Health Care Specialist Name Role Phone Guerrero Middleton PA-C Primary Care Provide r Reason for Visit * Reason Comments Diabetes Dexcom interpretatio n Encounter Details Date Type Department Care Team (Late st Contact Info) Description 05/16/2020 Chart Note [facility] Endocrinology [address] [place] [address] Prudence Gates MD [address] [facility] [place] [address] Diabetes (Dexcom interpretation) Social History [...] COVID-19? No / Unsure 05/04/2020 11:53 AM TRACK FITTER documented as of this encounter Progress Notes [...] is < 70 or > 250 consistently. K FITTER documented in this encounter Plan of Treatment Upcoming Encounters Date Type Department Care Team (Late st Contact Info) Description 09/14/2024 3:00 PM CDT Office Visit [facility] Heart and Vascular - [facility] [address] [place] [address] Marlys Mayer MD [address] [place] [address] documented as of this encounter Visit Diagnoses Diagnosis Uncontrolled type 2 diabetes mellitus with insulin therapy- Primary Type II or unspecified type diabetes mellitus without mention of complication, uncontrolled documented in this encounter Care Teams Health Care Specialist Relationship Specialty Start Date End Date Guerrero Middleton PA-C PCP - General Physician Glass Ribbon Machine Operator 02/13/18 documented as of this encounter
--- OUTSIDE RECORDS SUMMARY | 2024-05-03 21:53 | XMS_ITS | Encounter Summary ---
Author Organization [facility] Address [address] Orozco: Epic Prelude ADT [place] [address] Care Team Providers Care Resident Associate Name Role Phone Guerrero Middleton PA-C [...] you attend [facility] or anglican services? Never 08/21/2018 Do you [...] COVID-19? No / Unsure 05/04/2020 11:53 AM ACCOUNTS PAYABLE ANALYST documented as of this encounter Plan of Treatment Upcoming Encounters Date Type Department Care Team (Late st Contact Info) Description 09/14/2024 3:00 PM CDT Office Visit [facility] [address] [place] [address] Marlys Mayer MD [address] [place] [address] documented as of this encounter Visit Diagnoses Not on filedocumented in this encounter Care Teams Resident Associate Relationship Specialty Start Date End Date Guerrero Middleton PA-C PCP - General Physician Senior Web Developer 10/18/18 documented as of this encounter
--- OUTSIDE RECORDS SUMMARY | 2024-05-03 21:53 | XMS_ITS | Encounter Summary ---
Author Organization [facility] Address [address] [place] [address] Care Team Providers Care Semiautomatic Taper Operator Name Role Phone Guerrero Middleton PA-C Primary Care Provide r Reason for Visit * Reason Comments Medication Refill Encounter Details Date Type Department Care Team (Late st Contact Info) Description 06/04/2020 Refill [facility] Endocrinology [address] [place] [address] Prudence Gates MD [address] [place] [address] Social History Tobacco Use Types Packs/Day Years [...] often do you attend chur ch or jewish services? Never 08/21/2018 Do you [...] 8:16 AM CST ANGELES: 05/04/2020 NOV: 09/15/2020 ER AUTOMATIC documented in this encounter Plan of Treatment Upcoming Encounters Date Type Department Care Team (Late st Contact Info) Description 09/14/2024 3:00 PM CDT Office Visit [facility] Heart and Vascular - [facility] [address] [place] [address] Marlys Mayer MD [address] [place] [address] documented as of this encounter Visit Diagnoses Not on filedocumented in this encounter Care Teams Semiautomatic Taper Operator Relationship Specialty Start Date End Date Guerrero Middleton PA-C PCP - General Physician Home Health Provider 02/13/18 documented as of this encounter
--- OUTSIDE RECORDS SUMMARY | 2024-05-03 21:53 | XMS_ITS | Encounter Summary ---
Author Organization [facility] Address [address] [place] [address] Care Team Providers Care Certified Pediatric Nurse Practitioner Name Role Phone Guerrero Middleton PA-C Primary Care Provide r Reason for Visit * Reason Comments Medication Refill Encounter Details Date Type Department Care Team (Late st Contact Info) Description 06/17/2020 Refill [facility] Endocrinology [address] [place] [address] Prudence Gates MD [address] [place] [address] Social History Tobacco Use Types Packs/Day Years [...] COVID-19? No / Unsure 06/08/2020 9:32 AM JIGGER OPERATOR documented as of this encounter Miscellaneous Notes * Telephone Encounter - Sylvia France - 06/17/2020 11:19 AM CST Trisha:05/04/2020 Nov:09/15/2020 ER OPERATOR documented in this encounter Plan of Treatment Upcoming Encounters Date Type Department Care Team (Late st Contact Info) Description 09/14/2024 3:00 PM CDT Office Visit [facility] Heart and Vascular - [facility] [address] [address] [place] [address] Marlys Mayer MD [address] [place] [address] documented as of this encounter Visit Diagnoses Not on filedocumented in this encounter Care Teams Certified Pediatric Nurse Practitioner Relationship Specialty Start Date End Date Guerrero Middleton PA-C PCP - General Physician Hasher Machine Operator 02/13/18 documented as of this encounter
--- OUTSIDE RECORDS SUMMARY | 2024-05-03 21:54 | XMS_ITS | Encounter Summary ---
Author Organization [facility] Address [address] Orozco: Epic Prelude ADT [place] [address] Care Team Providers Care Insole And Heel Stiffener Name Role Phone Guerrero Middleton PA-C Primary [...] How often do you attend [facility] or jainism services? Never 08/21/2018 Do [...] [facility] [address] [place] [address] Marlys Mayer MD [address] [place] [address] documented as of this encounter Visit Diagnoses Not on filedocumented in this encounter Care Teams Insole And Heel Stiffener Relationship Specialty Start Date End Date Guerrero Middleton PA-C PCP - General Physician Supervisor Home Restoration Service 02/13/18 documented as of this encounter
--- OUTSIDE RECORDS SUMMARY | 2024-05-03 21:54 | XMS_ITS | Encounter Summary ---
Author Organization [facility] Address [address] Orozco: Epic Prelude ADT [place] [address] Care Team Providers Care Financial Services Auditor Name Role Phone Guerrero Middleton PA-C Primary [...] How often do you attend [facility] or moravian services? Never 08/21/2018 Do you [...] [facility] - [facility] [address] [place] [address] Marlys Mayer MD [address] [place] [address] documented as of this encounter Visit Diagnoses Not on filedocumented in this encounter Care Teams Financial Services Auditor Relationship Specialty Start Date End Date Guerrero Middleton PA-C PCP - General Physician Drum Attendant 02/13/18 documented as of this encounter
--- OUTSIDE RECORDS SUMMARY | 2024-05-03 21:54 | XMS_ITS | Encounter Summary ---
Author Organization [facility] Address [address] [place] [address] Care Team Providers Care Bail Attacher Name Role Phone Guerrero Middleton PA-C Primary Care Provide r Encounter Details Date Type Department Care Team (Latest Contact Info) Description 09/07/2019 9:54 AM CDT - 09/07/2019 11:59 PM CDT Hospital Encounter [facility] Don[facility] S [facility] [address] [place] [address] Alize Arteaga MD NO ADDRESS ON FILE [...] 1 Tablet (10 mg) by mouth daily livestock breeder. 30 Tablet 5 04/08/2019 10/12/2019 levothyroxine 200 [...] the procedure. ?? Alize Arteaga MD, PhD Voucher Clerk, therapeutic apheresis service [phone] ?? Procedure??notes:?L and??R bard ports??used for procedure. ??Patient tolerated procedure well. Patient to return in one week. documented in this encounter Plan of Treatment Upcoming Encounters Date Type Department Care Team (Late st Contact Info) Description 09/14/2024 3:00 PM CDT Office Visit [facility] Heart and Vascular - [facility] [address] [place] [address] Marlys Mayer MD [address] [place] [address] documented as of this encounter Procedures Procedure Name Priority Date/Time Associated Diagnosis Comments TRIGLYCERIDE Routine 09/07/2019 10:23 AM CDT Hypertriglyceridemi a CBC WITHOUT DIFFERENTIAL Stat 09/07/2019 10:22 AM CDT Hypertriglyceridemi a documented in this encounter Results * (ABNORMAL) TRIGLYCERIDE (09/07/2019 10:23 AM CDT) TRIGLYCERIDE 4,146(H) <150 mg/dL 09/07/2019 11:13 AM CDT [facility] [employer] [facility] Blood Venipuncture / Unknown 09/07/2019 10:23 AM CDT 09/07/2019 10:23 AM CDT Narrative [facility] - 09/07/2019 11:13 AM CDT TRIGLYCERIDES ? mg/dL Normal ?< 150 Borderline High ?150 - 199 High ? 200 - 499 Very High ? >= 500 Based on AHA/NCEP Guidelines. Alize Arteaga MD CHEMISTRY ORDER [facility] [employer] LABORATORY SERVICES - [facility] CLIA# [id number] [address] [place] [place] [address] * (ABNORMAL) CBC WITHOUT DIFFERENTIAL (09/07/2019 10:22 AM CDT) [facility] WBC 10.1(H) 4.0 - 9.8 K/uL 09/07/2019 10:33 AM CDT [employer] LABORATORY SERVICES - [facility] RBC 4.58 3.90 - 4.90 M/uL 09/07/2019 10:33 AM CDT [facility]ORATORY SERVICES - [facility] HEMOGLOBIN 15.0(H) 11.8 - 14.8 g/dL 09/07/2019 10:33 AM CDT [facility] LABORATORY SERVICES - [facility] HEMATOCRIT 40.3 35.5 - 44.0 % 09/07/2019 10:33 AM CDT [facility] LABORATORY SERVICES - . [facility] MCV 88.0 82.0 - 99.0 fL 09/07/2019 10:33 AM CDT [employer] LABORATORY SERVICES - [facility] MCH 32.8(H) 27.2 - 32.6 pg 09/07/2019 10:33 AM CDT [facility] LABORATORY SERVICES - . [facility] MCHC 37.2(H) 31.5 - 35.5 g/dL 09/07/2019 10:33 AM CDT [facility] [facility]ORATORY SERVICES - [facility] PLATELETS 305 140 - 350 K/uL 09/07/2019 10:33 AM CDT [facility] LABORATORY SERVICES - . [facility] MPV 10.0 9.3 - 12.4 fL 09/07/2019 10:33 AM CDT [employer] LABORATORY SERVICES - . [facility] RDW 14.8(H) 11.5 - 14.5 % 09/07/2019 10:33 AM CDT [employer] [facility]ORATORY SERVICES - [facility] RDW-STDEV 47.3 37.1 - 48.7 fL 09/07/2019 10:33 AM CDT [facility] LABORATORY [facility] Blood Venipuncture / Unknown 09/07/2019 10:22 AM CDT 09/07/2019 10:22 AM CDT Alize Arteaga MD HEMATOLOGY YONI SERRANO [id number] [address] [place] [address] documented in this encounter Visit Diagnoses Diagnosis [...] Units documented in this encounter Care Teams Bail Attacher Relationship Specialty Start Date End Date Guerrero Middleton PA-C PCP - General Physician Med Specialist 02/13/18 documented as of this encounter
--- OUTSIDE RECORDS SUMMARY | 2024-05-03 21:54 | XMS_ITS | Encounter Summary ---
Author Organization [facility] Address [address] [place] [address] Care Team Providers Care Station Repairer Name Role Phone Guerrero Middleton PA-C Primary Care Provide r Encounter Details Date Type Department Care Team (Latest Contact Info) Description 10/07/2019 9:45 AM CDT - 10/07/2019 11:59 PM CDT Hospital Encounter [facility] Blood Bank Donor Center S [facility] [address] [place] [address] Alize Arteaga MD NO ADDRESS ON FILE [...] 1 Tablet (10 mg) by mouth daily transportation lead. 30 Tablet 5 04/08/2019 10/12/2019 levothyroxine 200 [...] the procedure. ?? Alize Arteaga MD, PhD Tobacco Conditioner, therapeutic apheresis service [phone] ?? Procedure??notes:?L and??R bard ports??used for procedure. ??Patient tolerated procedure well. Patient to return in 28 days. documented in this encounter Plan of Treatment Upcoming Encounters Date Type Department Care Team (Late st Contact Info) Description 09/14/2024 3:00 PM CDT Office Visit [facility] Heart and Vascular - [place] [address] [place] [address] Marlys Mayer MD [address] [facility] [facility] [place] [address] documented as of this encounter Procedures Procedure Name Priority Date/Time Associated Diagnosis Comments CBC WITHOUT DIFFERENTIAL Routine 10/07/2019 10:07 AM CDT Hypertriglyceridemi a TRIGLYCERIDE Routine 10/07/2019 10:07 AM CDT Hypertriglyceridemi a documented in this encounter Results * (ABNORMAL) CBC WITHOUT DIFFERENTIAL (10/07/2019 10:07 AM CDT) WBC 9.5 4.0 - 9.8 K/uL 10/07/2019 10:13 AM CDT [facility] LABORATORY SERVICES - [facility] RBC 4.68 3.90 - 4.90 M/uL 10/07/2019 10:13 AM CDT [facility] LABORATORY SERVICES [facility] HEMOGLOBIN 14.0 11.8 - 14.8 g/dL 10/07/2019 10:13 AM CDT [facility] LABORATORY SERVICES - [facility] HEMATOCRIT 40.9 35.5 - 44.0 % 10/07/2019 10:13 AM CDT [facility] LABORATORY SERVICES - [facility] MCV 87.4 82.0 - 99.0 fL 10/07/2019 10:13 AM CDT [facility] LABORATORY SERVICES - [facility] MCH 29.9 27.2 - 32.6 pg 10/07/2019 10:13 AM CDT [facility] LABORATORY SERVICES - [facility] MCHC 34.2 31.5 - 35.5 g/dL 10/07/2019 10:13 AM T [facility] LABORATORY [facility] PLATELETS 212 140 - 350 K/uL 10/07/2019 10:13 AM CDT [facility] LABORATORY [facility] MPV 9.3 9.3 - 12.4 fL 10/07/2019 10:13 AM CDT [facility] [employer] [facility] RDW 15.4(H) 11.5 - 14.5 % 10/07/2019 10:13 AM T [facility] LABORATORY SERVICES - [facility] RDW-STDEV 49.1(H) 37.1 - 48.7 fL 10/07/2019 10:13 AM CDT [facility] [employer] [facility] Blood Collection / Unknown 10/07/2019 10:07 AM CDT 10/07/2019 10:09 AM CDT Alize Arteaga MD HEMATOLOGY [facility] Organization Address City/State/[facility] Co de Phone Number [facility] [employer] [facility]# [id number] [address] [place] [address] * (ABNORMAL) TRIGLYCERIDE (10/07/2019 10:07 AM CDT) TRIGLYCERIDE 1,148(H) <150 mg/dL 10/07/2019 10:56 AM CDT [facility] [employer] [facility] Blood Collection / Unknown 10/07/2019 10:07 AM CDT 10/07/2019 10:09 AM CDT Narrative [facility] LABORATORY [facility] - 10/07/2019 10:56 AM CDT TRIGLYCERIDES ? mg/dL Normal ?< 150 Borderline High ?150 - 199 High ? 200 - 499 Very High ? >= 500 Based on AHA/NCEP Guidelines. Alize Arteaga MD CHEMISTRY ORDER [facility] LABORATORY SERVICES [facility]# [id number] [address] [facility] [place] [address] documented in this encounter Visit Diagnoses Diagnosis [...] Units documented in this encounter Care Teams Station Repairer Relationship Specialty Start Date End Date Guerrero Middleton PA-C PCP - General Physician Licensed Clinician 02/13/18 documented as of this encounter
--- OUTSIDE RECORDS SUMMARY | 2024-05-03 21:54 | XMS_ITS | Encounter Summary ---
Author Organization [facility] Address [address] [place] [address] Care Team Providers Care Director Of Digital Technology Name Role Phone Guerrero Middleton PA-C Primary Care Provide r Reason for Visit * Reason Onset Date Comments Smoking Cessation 12/15/2019 Encounter Details Date Type Department Care Team (Late st Contact Info) Description 12/15/2019 Telephone [facility] Pulmonary Rehab [address] [place] [address] Zeynep Davison, BRINE MIXER OPERATOR Smoking Cessation Social History Tobacco Use [...] Davey RN - 12/16/2019 10:52 AM CDT [employer]: I spoke to Casandra on the phone today. We discussed [employer] and the telephonic calls with a Tobacco Manager Domestic program. ?? Pt is interested in participating. [...] and Vascular - [place] [address] [place] [address] Marlys Mayer MD [address] [place] [address] documented as of this encounter Visit Diagnoses Not on filedocumented in this encounter Care Teams Director Of Digital Technology Relationship Specialty Start Date End Date Guerrero Middleton PA-C PCP - General Physician Crimp Setter 02/13/18 documented as of this encounter
--- OUTSIDE RECORDS SUMMARY | 2024-05-03 21:54 | XMS_ITS | Encounter Summary ---
Author Organization [facility] Address [address] [place] [address] Care Team Providers Care And Drying Supervisor Cooking Casing Name Role Phone Guerrero Middleton PA-C Primary Care Provide r Reason for Visit * Reason Onset Date Comments Question 12/16/2019 Encounter Details Date Type Department Care Team (Late st Contact Info) Description 12/16/2019 Telephone [facility] Endocrinology [address] [place] [address] Prudence Gates MD [address] [place] [address] Question Social History Tobacco Use [...] and Vascular - [place] [address] [place] [address] Marlys Mayer MD [address] [place] [address] documented as of this encounter Visit Diagnoses Not on filedocumented in this encounter Care Teams And Drying Supervisor Cooking Casing Relationship Specialty Start Date End Date Guerrero Middleton PA-C PCP - General Physician Security Architect 02/13/18 documented as of this encounter
--- OUTSIDE RECORDS SUMMARY | 2024-05-03 21:54 | XMS_ITS | Encounter Summary ---
Author Organization [facility] Address 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 30 Tablet 5 04/08/2019 10/12/2019 levothyroxine 200 [...] HLD, hypothyroidism, PCOS ?? Meds: as per VUELOGIC. ?? Exam: ?? General Appearance: - Well [...] the procedure. ?? Alize Arteaga MD, PhD Nursing Specialist, therapeutic apheresis service [phone] ?? Procedure??notes:?L and??R bard ports??used for procedure. ??Patient tolerated procedure well. Patient to return in two weeks. documented in this encounter Plan of Treatment Upcoming Encounters Date Type Department Care Team (Late st Contact Info) Description 09/14/2024 3:00 PM CDT Office Visit [facility] Heart and Vascular - [facility] [address] [place] [address] Marlys Mayer MD [address] [facility] [address] [place], [place] [phone] documented as of this encounter Procedures Procedure Name Priority Date/Time Associated Diagnosis Comments CBC WITHOUT DIFFERENTIAL Routine 08/10/2019 10:22 AM CDT Hypertriglyceridemi a TRIGLYCERIDE Routine 08/10/2019 10:22 AM CDT Hypertriglyceridemi a documented in this encounter Results * (ABNORMAL) CBC WITHOUT DIFFERENTIAL (08/10/2019 10:22 AM CDT) WBC 8.6 4.0 - 9.8 K/uL 08/10/2019 10:46 AM CDT [facility] LABORATORY SERVICES [facility] RBC 5.12(H) 3.90 - 4.90 M/uL 08/10/2019 10:46 AM CDT [facility] LABORATORY [facility] HEMOGLOBIN 15.0(H) 11.8 - 14.8 g/dL 08/10/2019 10:46 AM CDT [facility] LABORATORY [facility] HEMATOCRIT 44.7(H) 35.5 - 44.0 % 08/10/2019 10:46 AM CDT [employer] LABORATORY SERVICES - [facility] MCV 87.3 82.0 - 99.0 fL 08/10/2019 10:46 AM CDT [employer] LABORATORY SERVICES - [facility] MCH 29.3 27.2 - 32.6 pg 08/10/2019 10:46 AM CDT [employer] LABORATORY SERVICES - [facility] MCHC 33.6 31.5 - 35.5 g/dL 08/10/2019 10:46 AM CDT [employer] LABORATORY SERVICES - [facility] PLATELETS 234 140 - 350 K/uL 08/10/2019 10:46 AM CDT [employer] LABORATORY SERVICES - [facility] MPV 9.4 9.3 - 12.4 fL 08/10/2019 10:46 AM CDT [employer] LABORATORY SERVICES - [facility] RDW 13.6 11.5 - 14.5 % 08/10/2019 10:46 AM CDT [employer] LABORATORY SERVICES - [facility] RDW-STDEV 43.4 37.1 - 48.7 fL 08/10/2019 10:46 AM CDT [employer] LABORATORY SERVICES - [facility] Blood Venipuncture / Unknown 08/10/2019 10:22 AM CDT 08/10/2019 10:24 AM CDT Alize Arteaga MD HEMATOLOGY ORDE MAGGIE [facility] [employer] SERVICES [facility]# [id number] [address] [facility] [place] [address] * (ABNORMAL) TRIGLYCERIDE (08/10/2019 10:22 AM CDT) TRIGLYCERIDE 1,397(H) <150 mg/dL 08/10/2019 11:10 AM CDT [employer] SERVICES [facility] Blood Venipuncture / Unknown 08/10/2019 10:22 AM CDT 08/10/2019 10:24 AM CDT Narrative [facility] LABORATORY SERVICES - [facility] - 08/10/2019 11:10 AM CDT TRIGLYCERIDES ? mg/dL Normal ?< 150 Borderline High ?150 - 199 High ? 200 - 499 Very High ? >= 500 Based on AHA/NCEP Guidelines. Alize Arteaga MD CHEMISTRY ORDER OSVALDO [facility] LABORATORY SERVICES [facility]# [id number] [address] [facility] [place] [address] documented in this encounter Visit Diagnoses Diagnosis [...] Units documented in this encounter Care Teams Facility Maintenance Helper Relationship Specialty Start Date End Date Guerrero Middleton PA-C PCP - General Physician Digital Photographic Printer 02/13/18 documented as of this encounter
--- OUTSIDE RECORDS SUMMARY | 2024-05-03 21:54 | XMS_ITS | Encounter Summary ---
Author Organization [employer] Address [address] [place] [address] Care Team Providers Care Beef Skinner Name Role Phone Guerreor Middleton PA-C Primary Care Provide r Encounter Details Date Type Department Care Team (Latest Contact Info) Description 05/11/2019 Orders Only [facility] Laboratory Services [address] [place] [address] [place] [address] Alize Arteaga MD NO ADDRESS [...] [place] [facility] - Old [facility] [address] [place] [address] Marlys Mayer MD [address] [place], [place] [phone] documented as of this encounter Procedures Procedure Name Priority Date/Time Associated Diagnosis Comments TRIGLYCERIDE Stat 05/11/2019 3:55 PM COMMUNICATIONS CONTROLLER Hypertriglyceridemia documented in this encounter Results * TRIGLYCERIDE (05/11/2019 3:55 PM COMMUNICATIONS CONTROLLER) TRIGLYCERIDE 116 <150 mg/dL 05/11/2019 4:[address] [facility] LABORATORY [facility] Blood Venipuncture / Unknown 05/11/2019 3:55 PM COMMUNICATIONS CONTROLLER 05/11/2019 4:01 PM COMMUNICATIONS CONTROLLER Narrative [facility] - 05/11/2019 4:44 PM COMMUNICATIONS CONTROLLER TRIGLYCERIDES ? mg/dL Normal ?< 150 Borderline High ?150 - 199 High ? 200 - 499 Very High ? >= 500 Based on AHA/NCEP Guidelines. Alize Arteaga MD CHEMISTRY ORDER OSVALDO [facility]# [id number] [address] [place] [address] documented in this encounter Visit Diagnoses Diagnosis Hypertriglyceridemia- Primary Pure hyperglyceridemia documented in this encounter Care Teams Beef Skinner Relationship Specialty Start Date End Date Guerrero Middleton PA-C PCP - General Physician Framing And Hanging 02/13/18 documented as of this encounter
--- OUTSIDE RECORDS SUMMARY | 2024-05-03 21:54 | XMS_ITS | Encounter Summary ---
Author Organization [facility] Address [address] [place] [address] Care Team Providers Care Supervisor Underwriting Clerks Name Role Phone Guerrero Middleton PA-C Primary Care Provide r Encounter Details Date Type Department Care Team (Latest Contact Info) Description 12/04/2019 10:00 AM CDT - 12/04/2019 11:59 PM CDT Hospital Encounter [facility] Donor Services [address] [phone] Alize Arteaga MD NO ADDRESS ON FILE [...] switch to see Dr. Gates as an psychologist counseling. ?? PMH: ??Hypertriglyceridemia (associated with prior episodes [...] the procedure. ?? Alize Arteaga MD, PhD Audit Mgr, therapeutic apheresis service [phone] ?? Procedure??notes:?L and??R bard ports??used for procedure. ??Patient tolerated procedure well. Patient to return in??~28 days. documented in this encounter Plan of Treatment Upcoming Encounters Date Type Department Care Team (Late st Contact Info) Description 09/14/2024 3:00 PM CDT Office Visit [facility] Heart and Vascular - [facility] [address] [place] [address] Marlys Mayer MD [address] [place], [place] [phone] documented as of this encounter Procedures Procedure Name Priority Date/Time Associated Diagnosis Comments TRIGLYCERIDE Routine 12/04/2019 10:17 AM CDT Hypertriglyceridemi a CBC WITHOUT DIFFERENTIAL Routine 12/04/2019 10:16 AM CDT Hypertriglyceridemi a documented in this encounter Results * (ABNORMAL) TRIGLYCERIDE (12/04/2019 10:17 AM CDT) TRIGLYCERIDE 422(H) <150 mg/dL 12/04/2019 10:55 AM CDT [facility] Blood Collection / Unknown 12/04/2019 10:17 AM CDT 12/04/2019 10:18 AM CDT [facility] LABORATORY SERVICES - [facility] - 12/04/2019 10:55 AM CDT TRIGLYCERIDES ? mg/dL Normal ?< 150 Borderline High ?150 - 199 High ? 200 - 499 Very High ? >= 500 Based on AHA/NCEP Guidelines. Alize Arteaga MD CHEMISTRY ORDER OSVALDO [facility] LABORATORY SERVICES - [facility] CLIA# [id number] [address] [facility] [place] [place] [address] * (ABNORMAL) CBC WITHOUT DIFFERENTIAL (12/04/2019 10:16 AM CDT) WBC 12.2(H) 4.0 - 9.8 K/uL 12/04/2019 10:21 AM CDT [employer] LABORATORY SERVICES - [facility] RBC 4.57 3.90 - 4.90 M/uL 12/04/2019 10:21 AM CDT [facility] LABORATORY SERVICES - [facility] HEMOGLOBIN 13.6 11.8 - 14.8 g/dL 12/04/2019 10:21 AM [facility] [employer] LABORATORY SERVICES - [facility] HEMATOCRIT 41.4 35.5 - 44.0 % 12/04/2019 10:21 AM CDT [employer] LABORATORY SERVICES - . [facility] MCV 90.6 82.0 - 99.0 fL 12/04/2019 10:21 AM CDT [employer] LABORATORY SERVICES - [facility] MCH 29.8 27.2 - 32.6 pg 12/04/2019 10:21 AM CDT [employer] LABORATORY SERVICES - . [facility] MCHC 32.9 31.5 - 35.5 g/dL 12/04/2019 10:21 AM CDT [employer] LABORATORY SERVICES - [facility] PLATELETS 256 140 - 350 K/uL 12/04/2019 10:21 AM CDT [employer] LABORATORY SERVICES - . [facility] MPV 9.4 9.3 - 12.4 fL 12/04/2019 10:21 AM CDT [facility] LABORATORY SERVICES - [facility] RDW 14.0 11.5 - 14.5 % 12/04/2019 10:21 AM CDT [facility] LABORATORY SERVICES - [facility] RDW-STDEV 46.4 37.1 - 48.7 fL 12/04/2019 10:21 AM CDT [facility] LABORATORY SERVICES - [facility] Blood Collection / Unknown 12/04/2019 10:16 AM CDT 12/04/2019 10:18 AM CDT Alize Arteaga MD HEMATOLOGY YONI SERRANO [facility] LABORATORY SERVICES - [facility] CLIA# [id number] [address] [place] [address] documented in this encounter Visit Diagnoses Diagnosis [...] Units documented in this encounter Care Teams Supervisor Underwriting Clerks Relationship Specialty Start Date End Date Guerrero Middleton PA-C PCP - General Physician Club Steward 02/13/18 documented as of this encounter
--- OUTSIDE RECORDS SUMMARY | 2024-05-03 21:54 | XMS_ITS | Encounter Summary ---
Author Organization [employer] Address [address] [place] [address] Care Team Providers Care Frame And Scrap Crusher Name Role Phone Guerrero Middleton PA-C Primary Care Provide r Encounter Details Date Type Department Care Team (Late st Contact Info) Description 11/04/2019 Orders Only [facility] Laboratory Services [address] [place] [address] [place] [address] Alize Arteaga MD NO ADDRESS [...] [facility] - [facility] [address] [address] [place] [address] Marlys Mayer MD [address] [place], [place] [phone] documented as of this encounter Results * (ABNORMAL) TRIGLYCERIDE (11/04/2019 11:33 AM CDT) TRIGLYCERIDE 277(H) <150 mg/dL 11/04/2019 12:31 PM CDT [facility] Blood Collection / Unknown 11/04/2019 11:33 AM CDT 11/04/2019 11:35 AM CDT Narrative [facility] - 11/04/2019 12:31 PM CDT TRIGLYCERIDES ? mg/dL Normal ?< 150 Borderline High ?150 - 199 High ? 200 - 499 Very High ? >= 500 Based on AHA/NCEP Guidelines. Alize Arteaga MD CHEMISTRY ORDER OSVALDO [facility] CLIA# [id number] [address] [place] [address] documented in this encounter Visit Diagnoses Diagnosis Mixed hyperlipidemia- Primary documented in this encounter Care Teams Frame And Scrap Crusher Relationship Specialty Start Date End Date Guerrero Middleton PA-C PCP - General Physician Master Data Analyst 02/13/18 documented as of this encounter
--- OUTSIDE RECORDS SUMMARY | 2024-05-03 21:54 | XMS_ITS | Encounter Summary ---
Author Organization [facility] Address [address] [place] [address] Care Team Providers Care Lime Slaker Name Role Phone Guerrero Middleton PA-C Primary Care Provide r Encounter Details Date Type Department Care Team (Latest Contact Info) Description 12/30/2019 10:00 AM CDT - 12/30/2019 11:59 PM CDT Hospital Encounter [facility] Donor Services [address] [phone] Alize Arteaga MD NO ADDRESS ON FILE [...] the procedure. ?? Alize Arteaga MD, PhD Retail Analyst, therapeutic apheresis service [phone] ?? Procedure??notes:?L and??R bard ports??used for procedure. [...] [facility] Heart and Vascular - [place] [address] [place] [address] Marlys Mayer MD [address] [place] [address] documented as of this encounter Procedures Procedure Name Priority Date/Time Associated Diagnosis Comments TRIGLYCERIDE Routine 12/30/2019 10:49 AM CDT Hypertriglyceridemia documented in this encounter Results * (ABNORMAL) TRIGLYCERIDE (12/30/2019 10:49 AM CDT) TRIGLYCERIDE 235(H) <150 mg/dL 12/30/2019 11:36 AM CDT [facility] Blood Venipuncture / Unknown 12/30/2019 10:49 AM CDT 12/30/2019 10:53 AM CDT Narrative [facility] - 12/30/2019 11:36 AM CDT TRIGLYCERIDES ? mg/dL Normal ?< 150 Borderline High ?150 - 199 High ? 200 - 499 Very High ? >= 500 Based on AHA/NCEP Guidelines. Alize Arteaga MD CHEMISTRY [facility] [id number] [address] [place], [place] [id number] documented in this encounter Visit Diagnoses Diagnosis [...] Units documented in this encounter Care Teams Lime Slaker Relationship Specialty Start Date End Date Guerrero Middleton PA-C PCP - General Physician Byproducts Pump Operator 02/13/18 documented as of this encounter
--- OUTSIDE RECORDS SUMMARY | 2024-05-03 21:54 | XMS_ITS | Encounter Summary ---
Author Organization [employer] Address [address] [place] [address] Care Team Providers Care Sewer System Supervisor Name Role Phone Guerrero Middleton PA-C Primary Care Provide r Encounter Details Date Type Department Care Team (Late st Contact Info) Description 11/04/2019 Orders Only [facility] Laboratory Services [address] [place] [address] [place] [address] Lyssa Mcnally Mixed hyperlipidemia Social [...] [facility] - [facility] [address] [place] [address] Marlys Mayer MD [address] [place] [address] documented as of this encounter Procedures Procedure Name Priority Date/Time Associated Diagnosis Comments TRIGLYCERIDE Routine 11/04/2019 11:33 AM CDT Mixed hyperlipidemia documented in this encounter Results * (ABNORMAL) TRIGLYCERIDE (11/04/2019 11:33 AM CDT) TRIGLYCERIDE 277(H) <150 mg/dL 11/04/2019 12:[address] [facility] Blood Collection / Unknown 11/04/2019 11:33 AM CDT 11/04/2019 11:35 AM CDT Narrative [facility] [employer] [facility] - 11/04/2019 12:31 PM CDT TRIGLYCERIDES ? mg/dL Normal ?< 150 Borderline High ?150 - 199 High ? 200 - 499 Very High ? >= 500 Based on AHA/NCEP Guidelines. Alize Arteaga MD CHEMISTRY ORDER OS[facility]DO [facility]# [id number] [address] [facility] [place] [address] documented in this encounter Visit Diagnoses Diagnosis Mixed hyperlipidemia documented in this encounter Care Teams Sewer System Supervisor Relationship Specialty Start Date End Date Guerrero Middleton PA-C PCP - General Physician Winterizer 02/13/18 documented as of this encounter
--- OUTSIDE RECORDS SUMMARY | 2024-05-03 21:54 | XMS_ITS | Encounter Summary ---
Author Organization [facility] Address [address] Orozco: Epic Prelude ADT [place] [address] Care Team Providers Care Psychology Professor Name Role Phone Guerrero Middleton PA-C [...] often [facility] or [facility] services? Never 08/21/2018 [...] Center Heart and Vascular - [place] [address] [address] [place] [address] Marlys Mayer MD [address] [place] [address] documented as of this encounter Visit Diagnoses Not on filedocumented in this encounter Care Teams Psychology Professor Relationship Specialty Start Date End Date Guerrero Middleton PA-C PCP - General Physician Veneer Stock Grader 02/13/18 documented as of this encounter
--- OUTSIDE RECORDS SUMMARY | 2024-05-03 21:54 | XMS_ITS | Encounter Summary ---
Author Organization [facility] Address [address] [place] [address] Care Team Providers Care Garment Tag Stringer Name Role Phone Guerrero Middleton PA-C Primary Care Provide r Reason for Visit * Reason Comments Abdominal Pain LUQ pain starting afternoon. +n/v. h/o hypertriglyceremia, seen for same 05/11 * Auth/Cert Specialty Diagnoses / Procedures Referred By Tequila t Referred To Contact Emergency Medicine [facility] Emergency Dept [address] [place] [address] Referral ID Status Reason Start Date Expiration Date Visits Re quested Visits Authorized [id number] 1 1 Encounter Details Date Type Department Care Team (Latest Contact Info) Description 05/24/2019 12:48 AM BARK [facility]ANNER - 05/25/2019 4:22 PM [facility] Hospital Encounter [facility] Transitional Care Unit [address] [place] [address] Nahed Vivar MD [address] [facility] [address] [place], [place] [id number] Parviz Sanabria MD [address] [address] [facility] [place] [address] [place] [address] [place] [address] Acute on chronic pancreatitis Discharge Disposition: Home [...] Comments Blood Pressure 100/54 05/25/2019 3:00 PM [facility] Pulse 87 05/25/2019 3:00 PM [facility] Temperature 36.9 ??C (98.5 ??F) 05/25/2019 3:00 PM CS T Respiratory Rate 19 05/25/2019 3:00 PM [facility] Oxygen Saturation 97% 05/25/2019 3:00 PM [facility] Inhaled Oxygen Concentration - - Weight 87.7 kg (193 lb 4.8 oz) 05/24/2019 3:37 P M [facility] Height 165.1 cm (5' 5 ) 05/24/2019 3:37 PM [facility] Body Mass Index 32.17 05/24/2019 3:37 PM [facility] documented in this encounter Discharge Summaries * Parviz Sanabria MD - 05/25/2019 4:22 PM CST [facility] Adult Hospitalist Discharge Summary Patient Name: Casandra [...] 1 Tablet (10 mg) by mouth daily legal counsel. 30 Tablet 5 05/23/2019 at Unknown time [...] 1 Tablet (10 mg) by mouth daily legal counsel. Signed by: Blake Rudd MD Quantity: 30 [...] GLUCOSE 240 (H) 74 - 99 mg/dL CUPOLA OPERATOR NAME DESIREE NEAL TRIGLYCERIDE Result Value Ref Range TRIGLYCERIDE 419 (H) <150 mg/dL POC GLUCOSE Result Value Ref Range POC GLUCOSE 153 (H) 74 - 99 mg/dL CUPOLA OPERATOR NAME CEDRIC (pn - FRADOMINICK )LAURA POC GLUCOSE Result Value Ref Range POC GLUCOSE 174 (H) 74 - 99 mg/dL CUPOLA OPERATOR NAME rocío NARVAEZ - JOSH )LAURA Labs [...] cyanosis or edema. Neurologic: CNII-XII grossly intact. BANNER Hospital Course: Per HPI by Dr. Pantelis [...] Signed: Parviz Sanabria MD 05/25/2019, 4:22 PM TANNER documented in this encounter Discharge Instructions * Discharge Instructions* Parviz Sanabria MD - 05/25/2019 1:03 PM [facility] Your discharging physician is Parviz Sanabria MD and may be reached at [phone] for any questions or concerns until you [...] is not relieved by nitroglycerin. Smoking Exposure: [facility] encourages all patients to decrease risks associated with smoking and second hand smoke exposure. If you smoke you are advised to quit. Ask your health care provider for advice if youneed assistance to stop smoking. Avoid second-hand smoke exposure and do not let people smoke in your home. Please call [phone], our pulmonary rehabilitation department, to learn more about options to reduce your risks. ACTIVITY Your activity level is: increase activity as tolerated and no smoking. You may return to work/school . DIET Your diet is: low fat, diabetic diet WOUND CARE For your wound/incision: not applicable. TANNER documented in this encounter Medications at Time [...] 1 Tablet (10 mg) by mouth daily legal counsel. 30 Tablet 5 04/08/2019 10/12/2019 levothyroxine 200 [...] staff. Patient/family demonstrates understanding of stated education. TANNER * Bibiana Rockwell NP - 05/24/2019 10:53 PM CST [facility] HOSPITALIST NOTE 05/24/19 10:53 PM [...] 1L bolus x 1 now Bibiana Rockwell, SECONDARY SET UP MAN ADDENDUM Time: 05/25/19 5:29 AM Problem: pt [...] and will order additional dose. Bibiana Rockwell, SECONDARY SET UP MAN TANNER * Lalita Damico MD - 05/24/2019 9:16 PM CST [facility] HOSPITALIST NOTE 05/24/19 9:17 PM [...] hypotensive. Lalita Damico MD Submit an eTicket TANNER * Rosales Tapia, RN - 05/24/2019 6:08 PM CST Plasma exchange number 1 using the left/right bard powerflow ports for access and return with 5% albumin as replacement fluids for a 1.0 volume exchange. TANNER * Nina Barber RN - 05/24/2019 6:04 PM CST [...] initiated. Is there skin breakdown under any Monorail Charger Operator (splint, ETT ha, c-collar)? If yes, please [...] removed from patient N/A Disposition of belongings/valuables:none TANNER * Parviz Sanabria MD - 05/24/2019 9:43 [...] to NS. Last blood sugar was 78 TANNER documented in this encounter H&P Notes * Maco Duque MD - 05/24/2019 4:57 AM CST [facility] Adult Hospitalist Admission H & P Patient [...] ESOPHAGOGASTRODUODENOSCOPY performed by Ceasar Vega MD at [facility] Current Medications: Prior [...] 1 Tablet (10 mg) by mouth daily legal counsel. fenofibrate (LOFIBRA) 160 mg Oral Tab 05/23/2019 [...] GLUCOSE 185 (H) 74 - 99 mg/dL CUPOLA OPERATOR NAME ELIESERDONALDOMONSE POC GLUCOSE Result Value Ref Range POC GLUCOSE 214 (H) 74 - 99 mg/dL CUPOLA OPERATOR NAME MONSE MON POC GLUCOSE Result Value Ref Range POC GLUCOSE 224 (H) 74 - 99 mg/dL CUPOLA OPERATOR NAME MONSE MON ECG personally reviewed and [...] the above results. Maco Duque MD P: [phone] TANNER documented in this encounter ED Notes * Marlen Ma, RN - 05/24/2019 2:54 PM CST Deisy OLGUIN preparing to medicate pt for increasing pain prior to transport to TCU. This RN released signed and held orders at this time. TANNER * Susan Norman - 05/24/2019 2:48 PM CST Mauro De Oliveira RN on floor notified. TANNER * Deisy Musa RN - 05/24/2019 12:46 PM CST ED nurse verbally discussed patient plan of care at this time. TANNER * Deisy Musa RN - 05/24/2019 11:24 AM CST Patient/family has been informed about benefits and any potential clinically significant side effects or other concerns regarding the administration of the drug they have just been given. TANNER * Deisy Musa RN - 05/24/2019 10:44 AM CST Patient/family has been informed about benefits and any potential clinically significant side effects or other concerns regarding the administration of the drug they have just been given. TANNER * Deisy Musa RN - 05/24/2019 8:45 AM CST Patient/family has been informed about benefits and any potential clinically significant side effects or other concerns regarding the administration of the drug they have just been given. TANNER Deisy Paredes RN - 05/24/2019 8:18 AM CST Patient/family has been informed about benefits and any potential clinically significant side effects or other concerns regarding the administration of the drug they have just been given. TANNER * Monse Mon RN - 05/24/2019 6:25 AM CST Report given to CLAU Ho. Pt denies further needs at this time. Assessment remains unchanged. Even unlabored breathing pattern noted. Call light within reach and encouraged to use. TANNER * Monse Mon RN - 05/24/2019 5:10 AM CST Pt denies further needs at this time. Assessment remains unchanged. Even unlabored breathing pattern noted. Call light within reach and encouraged to use. TANNER * Monse Mon RN - 05/24/2019 4:40 AM CST Pt placed on hospital bed. Pt c/o increased pain 11/05. TANNER * Monse Mno RN - 05/24/2019 3:00 AM CST This Rn Called and spoke with pharmacy who verified D5 -sodium chloride 0.45% is compatible with insulin regular. TANNER * Monse Mon RN - 05/24/2019 12:59 AM CST MD vivar at pt bedside. TANNER * Monse Mon RN - 05/24/2019 12:51 AM CST Pt came to ed c/o abdominal pain xyesterday afternoon. +n/v. h/o hypertriglyceremia,PCOS. Pt seen for same s/s 05/11. Denies incontinence. - CP/SOB. Aox4 even unlabored breathing pattern. Pt at pt bedside. TANNER * Afua Joyce RN - 05/23/2019 10:02 PM CST Discussed with patient potential placement in a nails bed in the ED to expedite evaluation. Patient agrees to being placed in nails bed. TANNER * Nahed Vivar MD - 05/23/2019 9:58 [...] GLUCOSE - Abnormal POC GLUCOSE 185 (*) CUPOLA OPERATOR NAME MONSE MON POC GLUCOSE - Abnormal POC GLUCOSE 214 (*) CUPOLA OPERATOR NAME MONSE MON POC GLUCOSE - Abnormal POC GLUCOSE 224 (*) CUPOLA OPERATOR NAME MONSE MON POC GLUCOSE - Abnormal POC GLUCOSE 225 (*) CUPOLA OPERATOR NAME MONSE MON POC GLUCOSE - Abnormal POC GLUCOSE 201 (*) CUPOLA OPERATOR NAME CRISELDA ZUNIGA (AMBREEN) LIPASE - Normal [...] this time. 1:30 AM: Discussed with Dr. Dquue ([facility] Hospitalist) who will admit to Step Down [...] and medical decision making performed by me. TANNER documented in this encounter Miscellaneous Notes * [...] follow for discharge planning. LOBO Reyes, DACIA [phone] Day 1 - Current ([place] [facility]: Adult and Obstetrics) Patient, family, or healthcare designee is participating in individual care plan process Outcome: Met Problem: Discharge Planning Goal: Identify discharge needs upon admission and through discharge Description Outcome: Progressing TANNER documented in this encounter Plan of Treatment Upcoming Encounters Date Type Department Care Team (Late st Contact Info) Description 09/14/2024 3:00 PM CDT Office Visit [facility] Heart and Vascular - [facility] [address] [place] [address] Marlys Mayer MD [address] [place] [address] documented as of this encounter Procedures Procedure Name Priority Date/Time Associated Diagnosis Comments POC GLUCOSE Routine 05/25/2019 1:40 PM [facility] POC GLUCOSE Routine 05/25/2019 9:25 AM [facility] TRIGLYCERIDE Routine 05/25/2019 5:18 AM [facility] POC GLUCOSE Routine 05/24/2019 8:23 PM [facility] POC GLUCOSE Routine 05/24/2019 3:59 PM [facility] BASIC METABOLIC PANEL Stat 05/24/2019 2:58 PM [facility] POC GLUCOSE Stat 05/24/2019 11:28 AM [facility] CBC WITH DIFFERENTIAL Stat 05/24/2019 10:45 AM [facility] Hypertriglyceridem ia TYPE AND SCREEN Stat 05/24/2019 10:45 AM [facility] PTT Stat 05/24/2019 10:30 AM [facility] PROTIME-INR Stat 05/24/2019 10:30 AM [facility] BASIC METABOLIC PANEL Stat 05/24/2019 10:30 AM [facility] POC GLUCOSE Stat 05/24/2019 10:16 AM [facility] POC GLUCOSE Stat 05/24/2019 9:09 AM [facility] POC GLUCOSE Stat 05/24/2019 8:03 AM [facility] POC GLUCOSE Stat 05/24/2019 7:16 AM [facility] BASIC METABOLIC PANEL Stat 05/24/2019 6:57 AM [facility] POC GLUCOSE Stat 05/24/2019 6:10 AM [facility] POC GLUCOSE Stat 05/24/2019 4:45 AM [facility] POC GLUCOSE Stat 05/24/2019 3:54 AM [facility] POC GLUCOSE Stat 05/24/2019 2:56 AM [facility] POC GLUCOSE Stat 05/24/2019 1:52 AM [facility] TRIGLYCERIDE Stat 05/24/2019 1:09 AM [facility] URINALYSIS W/REFLEX MICROSCOPIC Stat 05/23/2019 10:33 PM [facility] CBC WITH DIFFERENTIAL Stat 05/23/2019 10:30 PM [facility] LIPASE Stat 05/23/2019 10:30 PM [facility] COMPREHENSIVE METABOLIC PANEL Stat 05/23/2019 10:30 PM [facility] documented in this encounter Results * (ABNORMAL) POC GLUCOSE (05/25/2019 1:40 PM [facility]) GLUCOSE POC 174(H) 74 - 99 mg/dL 05/25/2019 1:40 PM [facility] CUPOLA OPERATOR NAME OLLIE NARVAEZ, (pn - JOSH ), [facility] 05/25/2019 1:40 PM [facility] Blood, whole 05/25/2019 1:40 PM [facility] 05/25/2019 1:47 PM [facility] Parviz Sanabria MD POINT OF CARE T ESTING Performing Organization Address City/[facility]/ZIP Co de Phone Number [facility]# [id number] [address] [place] [address] * (ABNORMAL) POC GLUCOSE (05/25/2019 9:25 AM B[facility] T[facility]) GLUCOSE POC 153(H) 74 - 99 mg/dL 05/25/2019 9:25 AM [facility] CUPOLA OPERATOR NAME OLLIE NARVAEZ, (pn - JOSH ), [facility] 05/25/2019 9:25 AM [facility] Blood, whole 05/25/2019 9:25 AM [facility] 05/25/2019 9:41 AM [facility] Parviz Sanabria MD POINT OF CARE T ESTING [facility]# [id number] [address] [place] [address] * (ABNORMAL) TRIGLYCERIDE (05/25/2019 5:18 AM B[facility]) TRIGLYCERIDE 419(H) <150 mg/dL 05/25/2019 6:17 AM [facility] [employer] [facility] Blood Venipuncture / Unknown 05/25/2019 5:18 AM [facility] 05/25/2019 5:44 AM [facility] Narrative [facility] - 05/25/2019 6:17 AM [facility] TRIGLYCERIDES ? mg/dL Normal ?< 150 Borderline High ?150 - 199 High ? 200 - 499 Very High ? >= 500 Based on AHA/NCEP Guidelines. Parviz Sanabria MD CHEMISTRY ORDER OSVALDO Performing Organization Address [facility]/ZIP Co de Phone Number [facility]# [id number] [address] [place] [address] * (ABNORMAL) POC GLUCOSE (05/24/2019 8:23 PM [facility]) GLUCOSE POC 240(H) 74 - 99 mg/dL 05/24/2019 8:23 PM [facility] CUPOLA OPERATOR NAME POC LORNA DESIREE 05/24/2019 8:23 PM [facility] [employer] [facility] Blood, whole 05/24/2019 8:23 PM [facility] 05/24/2019 9:11 PM [facility] Maco Duque MD POINT OF CARE TESTI NG Performing Organization Address [facility]/ZIP Co de Phone Number [facility]# [id number] [address] [place] [address] * (ABNORMAL) POC GLUCOSE (05/24/2019 3:59 PM [facility]) GLUCOSE POC 136(H) 74 - 99 mg/dL 05/24/2019 3:59 PM [facility] CUPOLA OPERATOR NAME POC NINA BARBER 05/24/2019 3:59 PM [facility] [employer] [facility] Blood, whole 05/24/2019 3:59 PM [facility] 05/24/2019 4:06 PM [facility] Maco Duque MD POINT OF CARE TESTI NG [facility] SERVICES [facility] CLIA# [id number] [address] [facility] [address] [place] [place] [address] * (ABNORMAL) BASIC METABOLIC PANEL (05/24/2019 2:58 PM [facility]) SODIUM 139 136 - 145 mmol/L 05/24/2019 3:33 PM [facility] LABORATORY SERVICES [facility] POTASSIUM 4.3 3.5 - 5.0 mmol/L 05/24/2019 3:33 PM [facility] [employer] [facility] CHLORIDE 105 98 - 107 mmol/L 05/24/2019 3:33 PM [facility] [employer] [facility] CO2 24 22 - 29 mmol/L 05/24/2019 3:33 PM [facility] CALCIUM 8.2(L) 8.6 - 10.2 mg/dL 05/24/2019 3:33 PM [facility] [employer] [facility] BUN 11 6 - 20 mg/dL 05/24/2019 3:33 PM [facility] [employer] [facility] CREATININE 0.60 0.51 - 0.95 mg/dL 05/24/2019 3:33 PM [facility] [employer] [facility] GLUCOSE 150(H) 74 - 99 mg/dL 05/24/2019 3:33 PM [facility] LABORATORY [facility] GFR >60 >=60 mL/min/1.7 3 sq meter 05/24/2019 3:33 PM [facility] [employer] [facility] Comment: eGFR has not been validated [...] mL/min/1.7 3 sq meter 05/24/2019 3:33 PM [facility] ANION GAP 10 8 - 16 mmol/L 05/24/2019 3:33 PM [facility] SERVICES [facility] Blood Venipuncture / Unknown 05/24/2019 2:58 PM [facility] 05/24/2019 3:08 PM [facility] Maco Duque MD CHEMISTRY ORDERABLE S Performing Organization Address [facility]/ZIP Co de Phone Number [facility] [employer] [facility] CLIA# [id number] [address] [place] [address] * (ABNORMAL) POC GLUCOSE (05/24/2019 11:28 AM BARK TANNER) Pathologist [facility] GLUCOSE POC 117(H) 74 - 99 mg/dL 05/24/2019 11:28 AM [facility] LABORATORY SERVICES [facility] COMMENT, GLU POC Notified RN/MD 05/24/2019 11:28 AM [facility] [employer] LABORATORY SERVICES [facility] CUPOLA OPERATOR NAME POC DEISY MUSA 05/24/2019 11:28 AM [facility] [employer] [facility] Blood, whole 05/24/2019 11:2 8 AM [facility] 05/24/2019 11:35 AM [facility] Parviz Sanabria MD POINT OF CARE T ESTING Performing Organization Address [facility]/ZIP Co de Phone Number [facility] [employer] [facility] CLIA# [id number] [address] [place] [address] * TYPE AND SCREEN (05/24/2019 10:45 AM B[facility] TANNER) ABO GROUP B 05/24/2019 12:17 PM [facility] LABORATORY SERVICES -- [facility] RH (D) TYPE Positive 05/24/2019 12:17 PM [facility] [facility]ORATORY SERVICES -- [facility] ANTIBODY SCREEN Negative 05/24/2019 12:17 PM [facility] -- [facility] Blood Venipuncture / Unknown 05/24/2019 10:45 AM [facility] 05/24/2019 10:49 AM [facility] Parviz Sanabria MD BLOOD BANK YONI SERRANO [facility] [facility] CLIA# [id number] [address] [facility] [place] [place] [address] * (ABNORMAL) CBC WITH DIFFERENTIAL (05/24/2019 10:45 AM [facility]NER) WBC 8.7 4.0 - 9.8 K/uL 05/24/2019 11:07 AM [employer] SERVICES - [facility] RBC 3.82(L) 3.90 - 4.90 M/uL 05/24/2019 11:07 AM [employer] LABORATORY SERVICES - . [facility] HEMOGLOBIN 11.2(L) 11.8 - 14.8 g/dL 05/24/2019 11:07 AM [employer] [facility] SERVICES - [facility] HEMATOCRIT 34.8(L) 35.5 - 44.0 % 05/24/2019 11:07 AM [employer] [facility] MCV 91.1 82.0 - 99.0 fL 05/24/2019 11:07 AM [employer] [facility]ORY SERVICES - [facility] MCH 29.3 27.2 - 32.6 pg 05/24/2019 11:07 AM [employer] LABORATORY SERVICES - . [facility] MCHC 32.2 31.5 - 35.5 g/dL 05/24/2019 11:07 AM [employer] [facility] RDW 14.2 11.5 - 14.5 % 05/24/2019 11:07 AM [employer] LABORATORY SERVICES - [facility] RDW-STDEV 47.5 37.1 - 48.7 fL 05/24/2019 11:07 AM [employer] SERVICES - . [facility] PLATELETS 228 140 - 350 K/uL 05/24/2019 11:07 AM [employer] LABORATORY SERVICES - [facility] MPV 9.3 9.3 - 12.4 fL 05/24/2019 11:07 AM [employer] [facility] NEUTROPHILS 54 % 05/24/2019 11:07 AM [facility] [employer] [facility] LYMPHOCYTES 38 % 05/24/2019 11:07 AM [facility] MONOCYTES 7 % 05/24/2019 11:07 AM [facility] EOSINOPHILS 1 % 05/24/2019 11:07 AM [facility] BASOPHILS 0 % 05/24/2019 11:07 AM [facility] IMMATURE GRANULOCYTES 1 % 05/24/2019 11:07 AM [facility] Comment:IG (Immature Granulo cyte) count includes Metamyelocytes, Myelocytes, and Promyelocytes NEUTROPHIL ABSOLUTE 4.64 1.90 - 7.00 K/uL 05/24/2019 11:07 AM [facility] [employer] [facility] LYMPHOCYTE ABSOLUTE 3.29 0.70 - 4.50 K/uL 05/24/2019 11:07 AM [facility] MONOCYTE ABSOLUTE 0.58 0.10 - 1.30 K/uL 05/24/2019 11:07 AM [facility] [employer] [facility] EOSINOPHIL ABSOLUTE 0.09 0.00 - 0.70 K/uL 05/24/2019 11:07 AM [facility] [employer] [facility] BASOPHILS ABSOLUTE 0.03 0.00 - 0.20 K/uL 05/24/2019 11:07 AM [facility] [employer] [facility] IMMATURE GRANULOCYTES ABSOLUTE 0.04(H) 0.00 - 0.03 K/uL 05/24/2019 11:07 AM [facility] [employer] [facility] Blood Venipuncture / Unknown 05/24/2019 10:45 AM B[facility]NER 05/24/2019 10:49 AM [facility] Phoenix Riddle MD HEMATOLOGY ORDERABL ES [facility] CLIA# [id number] [address] [facility] [place] [address] * (ABNORMAL) PROTIME-INR (05/24/2019 10:30 AM [facility]) PROTIME 12.5(L) 12.7 - 15.1 Seconds 05/24/2019 11:34 AM [facility] INR 1.0 0.9 - 1.1 05/24/2019 11:34 AM [facility] Blood Venipuncture / Unknown 05/24/2019 10:30 AM [facility] 05/24/2019 10:33 AM [facility] Narrative [facility] - 05/24/2019 11:34 AM [facility] INR Therapeutic Range: Adult: ?? 2.0 - 3.0 for pulmonary embolism or prophylaxis against venous ?thrombosis or systemic embolization. 2.0 - 3.0 for patients with tissue heart valves. 2.5 - 3.5 for patients with mechanical heart valves or post [place]. Pediatric ??(12 years and under): 1.5 - 3.0 Although the target range in children is not well established, ?INR values of 1.5 - 3.0 are recommended for most patients. ?Higher values have been used in children with prosthetic ?cardiac valves and hereditary clotting disorders. (<3 days) therapeutic ranges have not been established. Parviz Sanabria MD [facility]# [id number] [address] [facility] [place] [address] * PTT (05/24/2019 10:30 AM [facility]) PTT 35.8 24.4 - 36.4 seconds 05/24/2019 11:34 AM [facility] Comment: PTT Therapeutic Range: Heparin Level ? PTT (seconds) <0.10 units/mL ? <53 0.10 - 0.30 units/mL ? 53 - 67 0.30 - 0.70 units/mL* ?67 - 95* 0.70 - 1.00 units/mL ? 95 - 116 *corresponds to therapeutic range for unfractionated heparin Blood Venipuncture / Unknown 05/24/2019 10:30 AM [facility] 05/24/2019 10:33 AM [facility] Parviz Sanabria MD HEMATOLOGY YONI SERRANO [facility] [employer] SERVICES [facility]# [id number] [address] [place] [address] * (ABNORMAL) BASIC METABOLIC PANEL (05/24/2019 10:30 AM [facility]) SODIUM 140 136 - 145 mmol/L 05/24/2019 11:08 AM [facility] [employer] SERVICES [facility] POTASSIUM 3.6 3.5 - 5.0 mmol/L 05/24/2019 11:08 AM [facility] [employer] [facility] CHLORIDE 104 98 - 107 mmol/L 05/24/2019 11:08 AM [facility] [employer] [facility] CO2 23 22 - 29 mmol/L 05/24/2019 11:08 AM [facility] [employer] [facility] CALCIUM 8.4(L) 8.6 - 10.2 mg/dL 05/24/2019 11:08 AM [facility] [employer] [facility] BUN 12 6 - 20 mg/dL 05/24/2019 11:08 AM [facility] [employer] [facility] CREATININE 0.55 0.51 - 0.95 mg/dL 05/24/2019 11:08 AM [facility] [employer] [facility] GLUCOSE 90 74 - 99 mg/dL 05/24/2019 11:08 AM [facility] [employer] [facility] GFR >60 >=60 mL/min/1.7 3 sq meter 05/24/2019 11:08 AM [facility] Consultant [employer] SERVICES [facility] Comment: eGFR has not been validated [...] mL/min/1.7 3 sq meter 05/24/2019 11:08 AM [facility] LABORATORY [facility] ANION GAP 13 8 - 16 mmol/L 05/24/2019 11:08 AM [facility] LABORATORY [facility] Blood Venipuncture / Unknown 05/24/2019 10:30 AM [facility] 05/24/2019 10:33 AM [facility] Maco Duque MD CHEMISTRY ORDERABLE S Performing Organization Address City/[facility]/ZIP Co de Phone Number [facility]# [id number] [address] [place] [address] * POC GLUCOSE (05/24/2019 10:16 AM [facility]) GLUCOSE POC 78 74 - 99 mg/dL 05/24/2019 10:16 AM [facility] LABORATORY [facility] CUPOLA OPERATOR NAME POC JOSE DANIEL TA 05/24/2019 10:16 AM [facility] LABORATORY [facility] Blood, whole 05/24/2019 10:1 6 AM [facility] 05/24/2019 10:23 AM [facility] Parviz Sanabria MD POINT OF CARE T ESTING Performing Organization Address [facility]/ZIP Co de Phone Number [facility]# [id number] [address] [place] [address] * (ABNORMAL) POC GLUCOSE (05/24/2019 9:09 AM [facility]) GLUCOSE POC 114(H) 74 - 99 mg/dL 05/24/2019 9:09 AM [facility] COMMENT, GLU POC Notified RN/MD 05/24/2019 9:09 AM [facility] LABORATORY SERVICES [facility] CUPOLA OPERATOR NAME POC DEISY MUSA 05/24/2019 9:09 AM [facility] [employer] [facility] Blood, whole 05/24/2019 9:09 AM [facility] 05/24/2019 9:16 AM [facility] Nahed Vivar MD POINT OF CARE TESTIN G Performing Organization Address City/[facility]/ZIP Co de Phone Number [facility] CLIA# [id number] [address] [place] [address] * (ABNORMAL) POC GLUCOSE (05/24/2019 8:03 AM [facility]) GLUCOSE POC 153(H) 74 - 99 mg/dL 05/24/2019 8:03 AM [facility] LAB[facility] SERVICES [facility] CUPOLA OPERATOR NAME POC JOSE DANIEL TA 05/24/2019 8:03 AM [facility] [employer] LABORATORY SERVICES [facility] Blood, whole 05/24/2019 8:03 AM [facility] 05/24/2019 8:09 AM [facility] Nahed Vivar MD POINT OF CARE TESTJERONIMO G [facility] CLIA# [id number] [address] [place] [address] * (ABNORMAL) POC GLUCOSE (05/24/2019 7:16 AM [facility]) GLUCOSE POC 153(H) 74 - 99 mg/dL 05/24/2019 7:16 AM [facility] CUPOLA OPERATOR NAME POC GENIA SMILEY 05/24/2019 7:16 AM [facility] Blood, whole 05/24/2019 7:16 AM [facility] 05/24/2019 7:25 AM [facility] Nahed Vivar MD POINT OF CARE TESTIN G [facility]# [id number] [address] [place] [address] * (ABNORMAL) BASIC METABOLIC PANEL (05/24/2019 6:57 AM [facility]) SODIUM 137 136 - 145 mmol/L 05/24/2019 7:43 AM [facility] [employer] [facility] POTASSIUM 3.6 3.5 - 5.0 mmol/L 05/24/2019 7:43 AM [facility] [employer] [facility] CHLORIDE 101 98 - 107 mmol/L 05/24/2019 7:43 AM [facility] CO2 24 22 - 29 mmol/L 05/24/2019 7:43 AM [facility] CALCIUM 8.5(L) 8.6 - 10.2 mg/dL 05/24/2019 7:43 AM [facility] BUN 12 6 - 20 mg/dL 05/24/2019 7:43 AM [facility] CREATININE 0.64 0.51 - 0.95 mg/dL 05/24/2019 7:43 AM [facility] GLUCOSE 194(H) 74 - 99 mg/dL 05/24/2019 7:43 AM [facility] GFR >60 >=60 mL/min/1.7 3 sq meter 05/24/2019 7:43 AM [facility] [employer] [facility] Comment: eGFR has not [...] mL/min/1.7 3 sq meter 05/24/2019 7:43 AM [facility] LAB[facility] ANION GAP 12 8 - 16 mmol/L 05/24/2019 7:43 AM [facility]ORY [facility] Blood Venipuncture / Unknown 05/24/2019 6:57 AM [facility] 05/24/2019 7:02 AM [facility] Maco Duque MD CHEMISTRY ORDERABLE S Performing Organization Address [facility]/ZIP Co de Phone Number [facility]# [id number] [address] [place], [place] [address] * (ABNORMAL) POC GLUCOSE (05/24/2019 6:10 AM [facility]) GLUCOSE POC 201(H) 74 - 99 mg/dL 05/24/2019 6:10 AM [facility] CUPOLA OPERATOR NAME POC CRISELDA ZUNIGA (AMBREEN) 05/24/2019 6:10 AM [facility] LAB[facility] Blood, whole 05/24/2019 6:10 AM [facility] 05/24/2019 6:18 AM [facility] Nahed Vivar MD POINT OF CARE TESTJERONIMO Serrano Performing Organization Address [facility] Phone Number [facility] [id number] [address] [place], [place] [address] * (ABNORMAL) POC GLUCOSE (05/24/2019 4:45 AM [facility]) GLUCOSE POC 225(H) 74 - 99 mg/dL 05/24/2019 4:45 AM [facility] LABORATORY [facility] CUPOLA OPERATOR NAME POC MONSE 05/24/2019 4:45 AM [facility] LAB[facility] Blood, whole 05/24/2019 4:45 AM [facility] 05/24/2019 4:58 AM [facility] Nahed Vivar MD POINT OF CARE TESTJERONIMO Serrano Performing Organization Address [facility]/State/ZIP Co de Phone Number [facility] CLIA# [id number] [address] [place] [address] * (ABNORMAL) POC GLUCOSE (05/24/2019 3:54 AM [facility]) GLUCOSE POC 224(H) 74 - 99 mg/dL 05/24/2019 3:54 AM [facility] LABORATORY [facility] CUPOLA OPERATOR NAME MONSE BARAHONA 05/24/2019 3:54 AM [facility] LABORATORY SERVICES [facility] Blood, whole 05/24/2019 3:54 AM [facility] 05/24/2019 4:06 AM [facility] Nahed Vivar MD POINT OF CARE TESTIN Maggie Performing Organization Address [facility]/ZIP Co de Phone Number [facility] CLIA# [id number] [address] [place] [address] * (ABNORMAL) POC GLUCOSE (05/24/2019 2:56 AM [facility]) GLUCOSE POC 214(H) 74 - 99 mg/dL 05/24/2019 2:56 AM [facility] LABORATORY [facility] CUPOLA OPERATOR NAME MONSE BARAHONA 05/24/2019 2:56 AM [facility] LABORATORY [facility] Blood, whole 05/24/2019 2:56 AM [facility] 05/24/2019 3:04 AM [facility] Nahed Vivar MD POINT OF CARE TESTIN G [facility] CLIA# [id number] [address] [place] [address] * (ABNORMAL) POC GLUCOSE (05/24/2019 1:52 AM [facility]) GLUCOSE POC 185(H) 74 - 99 mg/dL 05/24/2019 1:52 AM [facility] LABORATORY [facility] CUPOLA OPERATOR NAME MONSE BARAHONA 05/24/2019 1:52 AM [facility] Blood, whole 05/24/2019 1:52 AM [facility] 05/24/2019 2:00 AM [facility] Nahed Vivar MD POINT OF CARE TESTIN G Performing Organization Address [facility] de Phone Number [facility]# [id number] [address] [place] [address] * (ABNORMAL) TRIGLYCERIDE (05/24/2019 1:09 AM [facility]) TRIGLYCERIDE 1,358(H) <150 mg/dL 05/24/2019 2:01 AM [facility] Blood Venipuncture / Unknown 05/24/2019 1:09 AM [facility] 05/24/2019 1:22 AM [facility] Narrative [facility] - 05/24/2019 2:01 AM [facility] TRIGLYCERIDES ? mg/dL Normal ?< 150 Borderline High ?150 - 199 High ? 200 - 499 Very High ? >= 500 Based on AHA/NCEP Guidelines. Nahed Vivar MD CHEMISTRY ORDERABLES Performing Organization Address [facility] de Phone Number [facility]# [id number] [address] [place] [address] * (ABNORMAL) URINALYSIS WITH REFLEX MICROSCOPIC (05/23/2019 10:33 PM [facility]) COLOR UA Pale Yellow Pale to Dark Yellow 05/23/2019 11:19 PM [facility] [employer] [facility] CLARITY UA Clear Clear 05/23/2019 11:19 PM [facility] SPECIFIC GRAVITY UA 1.033 1.003 - 1.035 05/23/2019 11:19 PM [facility] PH UA 6.0 5.0 - 8.0 05/23/2019 11:19 PM [facility] [employer] LABORATORY SERVICES [facility] LEUKOCYTE ESTERASE UA Negative Negative 05/23/2019 11:19 PM [facility] [employer] LABORATORY SERVICES - [facility] NITRITE UA Negative Negative 05/23/2019 11:19 PM [facility] [employer] LABORATORY SERVICES [facility] PROTEIN UA Negative Negative 05/23/2019 11:19 PM [facility] [employer] LABORATORY SERVICES - [facility] GLUCOSE UA 3+(A) Negative 05/23/2019 11:19 PM [facility] [employer] LABORATORY SERVICES - [facility] KETONES UA Trace(A) Negative 05/23/2019 11:19 PM [facility] [employer] LABORATORY SERVICES - [facility] UROBILINOGEN UA Normal <2.0 mg/dL 0 11:19 PM [facility] [employer] LABORATORY SERVICES - [facility] BILIRUBIN UA Negative Negative 05/23/2019 11:19 PM [facility] [employer] LABORATORY SERVICES - [facility] BLOOD UA Negative Negative 05/23/2019 11:19 PM [facility] [employer] LABORATORY SERVICES - [facility] Urine URINE SPECIMEN OBTAINED BY CLEAN CATCH PROCEDURE / Unknown Collection / Unknown 05/23/2019 10:33 PM [facility] 05/23/2019 11:09 PM [facility] Nahed Vivar MD URINE ORDERABLES [facility] LABORATORY [facility] CLIA# [id number] [address] [place] [address] * LIPASE (05/23/2019 10:30 PM [facility]) LIPASE 42 13 - 60 U/L 05/23/2019 11:27 PM [facility] [employer] LABORATORY SERVICES [facility] Blood Venipuncture / Unknown 05/23/2019 10:30 PM [facility] 05/23/2019 10:35 PM [facility] Nahed Vivar MD CHEMISTRY ORDERABLES [facility] LABORATORY [facility] CLIA# [id number] [address] [place] [address] * (ABNORMAL) COMPREHENSIVE METABOLIC PANEL (05/23/2019 10:30 PM [facility]) SODIUM 135(L) 136 - 145 mmol/L 05/24/2019 12:17 AM [facility] [employer] LABORATORY [facility] POTASSIUM 4.2 3.5 - 5.0 mmol/L 05/24/2019 12:17 AM [facility] [employer] LABORATORY [facility] CHLORIDE 97(L) 98 - 107 mmol/L 05/24/2019 12:17 AM [facility] [employer] [facility] CO2 22 22 - 29 mmol/L 05/24/2019 12:17 AM [facility] [employer] [facility] CALCIUM 9.7 8.6 - 10.2 mg/dL 05/24/2019 12:17 AM [facility] [employer] [facility] BUN 12 6 - 20 mg/dL 05/24/2019 12:17 AM [facility] [employer]ant [employer] [facility] CREATININE 0.68 0.51 - 0.95 mg/dL 05/24/2019 12:17 AM [facility] [employer] [facility] GLUCOSE 253(H) 74 - 99 mg/dL 05/24/2019 12:17 AM [facility] [employer] [facility] TOTAL PROTEIN 6.8 6.7 - 8.6 g/dL 05/24/2019 12:17 AM [facility] [employer]ant [employer] [facility] ALBUMIN 4.6 3.5 - 5.2 g/dL 05/24/2019 12:17 AM [facility] [employer] [facility] BILIRUBIN TOTAL 0.2(L) 0.3 - 1.2 mg/dL 05/24/2019 12:17 AM [facility] [employer]ant [employer] [facility] ALKALINE PHOSPHATASE 74 35 - 104 U/L 05/24/2019 12:17 AM [facility] [employer] [facility] AST 18 <33 U/L 05/24/2019 12:17 AM [facility] [employer] LABORATORY [facility] Comment: Hemolysis present. ??Result may be falsely elevated. Grossly lipemic. Cleared of chylomicrons. ALT 17 <34 U/L 05/24/2019 12:17 AM [facility] [employer] LABORATORY [facility] Comment: Grossly lipemic. Cleared of chylomicrons. GFR >60 >=60 mL/min/1.7 3 sq meter 05/24/2019 12:17 AM [facility] [employer] [facility] Comment: eGFR has not [...] mL/min/1.7 3 sq meter 05/24/2019 12:17 AM [facility] [employer] [facility] ANION GAP 16 8 - 16 mmol/L 05/24/2019 12:17 AM [facility] [employer] [facility] Blood Venipuncture / Unknown 05/23/2019 10:30 PM [facility] 05/23/2019 10:35 PM [facility] [employer] [facility] - 05/24/2019 12:17 AM [facility] Samples containing indocyanine green cause interferences on Total and/or Direct Bilirubin and must not be measured. Nahed Vivar MD CHEMISTRY ORDERABLES [facility]# [id number] [address] [facility] [place] [address] * (ABNORMAL) CBC WITH DIFFERENTIAL (05/23/2019 10:30 PM [facility]) WBC 10.7(H) 4.0 - 9.8 K/uL 05/23/2019 11:08 PM [facility] [employer] [facility] RBC 4.33 3.90 - 4.90 M/uL 05/23/2019 11:08 PM [facility] [employer] [facility] HEMOGLOBIN 12.9 11.8 - 14.8 g/dL 05/23/2019 11:08 PM [facility] [employer] [facility] HEMATOCRIT 38.5 35.5 - 44.0 % 05/23/2019 11:08 PM [facility] [employer] [facility] MCV 88.9 82.0 - 99.0 fL 05/23/2019 11:08 PM [facility] [employer] LABORATORY SERVICES - [facility] MCH 29.8 27.2 - 32.6 pg 05/23/2019 11:08 PM [facility] [employer] LABORATORY SERVICES - [facility] MCHC 33.5 31.5 - 35.5 g/dL 05/23/2019 11:08 PM [facility] [employer] LABORATORY SERVICES - [facility] RDW 14.0 11.5 - 14.5 % 05/23/2019 11:08 PM [facility] [employer] LABORATORY SERVICES - [facility] RDW-STDEV 45.9 37.1 - 48.7 fL 05/23/2019 11:08 PM [facility] [employer] LABORATORY SERVICES - [facility] PLATELETS 288 140 - 350 K/uL 05/23/2019 11:08 PM [employer] [place] [facility]ATORY SERVICES - [facility] MPV 9.6 9.3 - 12.4 fL 05/23/2019 11:08 PM [facility] [employer] LABORATORY SERVICES - [facility] NEUTROPHILS 62 % 05/23/2019 11:08 PM [employer] [facility] [employer] [place] [facility]ORY [facility] - [facility] LYMPHOCYTES 30 % 05/23/2019 11:08 PM [employer] [place] [facility] - [facility] MONOCYTES 6 % 05/23/2019 11:08 PM [employer] [facility] [employer] [facility] [place] [facility] EOSINOPHILS 1 % 05/23/2019 11:08 PM [employer] [place] [facility] - [facility] BASOPHILS 0 % 05/23/2019 11:08 PM [employer] [facility] [employer] [facility] [place] [facility] - [facility] IMMATURE GRANULOCYTES 1 % 05/23/2019 11:08 PM [employer] [place] LABORATORY SERVICES - . [facility] Comment:IG (Immature Granulo cyte) count includes Metamyelocytes, Myelocytes, and Promyelocytes NEUTROPHIL ABSOLUTE 6.63 1.90 - 7.00 K/uL 05/23/2019 11:08 PM [facility] [employer] LABORATORY SERVICES - . [facility] LYMPHOCYTE ABSOLUTE 3.22 0.70 - 4.50 K/uL 05/23/2019 11:08 PM [facility] [employer] LABORATORY SERVICES - . [facility] MONOCYTE ABSOLUTE 0.61 0.10 - 1.30 K/uL 05/23/2019 11:08 PM [employer] [facility] [employer] [facility] [place] LABORATORY SERVICES - . [facility] EOSINOPHIL ABSOLUTE 0.10 0.00 - 0.70 K/uL 05/23/2019 11:08 PM [facility] [employer] LABORATORY SERVICES - . [facility] BASOPHILS ABSOLUTE 0.04 0.00 - 0.20 K/uL 05/23/2019 11:08 PM [facility] LABORATORY [facility] IMMATURE GRANULOCYTES ABSOLUTE 0.05(H) 0.00 - 0.03 K/uL 05/23/2019 11:08 PM [facility] LABORATORY [facility] Blood Venipuncture / Unknown 05/23/2019 10:30 PM [facility] 05/23/2019 10:35 PM [facility] Nahed Vivar MD HEMATOLOGY ORDERABLE S [facility] LABORATORY [facility] CLIA# [id number] [address] [place] [address] documented in this encounter Visit Diagnoses Diagnosis [...] Until Discontinued, Routine Given 05/24/2019 8:14 PM [facility] 80 mg calcium GLUCONATE 2,000 mg in sodium chloride 0.9% 120 mL IVPB 2,000 mg, IV, INTRA-PROCEDURE ONCE, 1 dose, Starting on 05/24/19 at 1407, Until 05/24/19 at 1725, Routine, Intra-Procedure New Bag 05/24/2019 4:34 PM [facility] 2,000 mg 240 mL/hr citalopram (CeleXA) tablet 40 mg 40 mg, Oral, DAILY AT BEDTIME, First dose on 05/24/19 at 2100, Until Discontinued, Routine Given 05/24/2019 8:16 PM [facility] 40 mg dextrose 5% - sodium chloride 0.45% infusion IV, at 150 mL/hr, CONTINUOUS, Starting on 05/24/19 at 0130, Until 05/24/19 at 1022, Routine Rate Change 05/24/2019 9:15 AM [facility] 250 mL /hr New Bag 05/24/2019 8:44 AM [facility] 150 mL/hr New Bag 05/24/2019 1:44 AM [facility] 150 mL/hr dextrose 5% - sodium chloride [...] Until Discontinued, Routine Given 05/25/2019 9:25 AM [facility] 160 mg glucagon HCl 1 mg injection 1 mg 1 mg, IM, SEE ADMIN INSTRUCTIONS, Starting on Sat05/24/19 at 1543, Until Sat05/25/19 at 1922, Routine heparin injection 2,000 Units 2,000 Units, Dwell, ONE TIME ONLY, 1 dose, On Sat05/24/19 at 1515, Routine, Please tube to station [id number], blood bank Given 05/24/2019 5:27 PM [facility] 2,000 Units Chest, Right heparin injection 3,000 Units 3,000 Units, Dwell, ONE TIME ONLY, 1 dose, On Sat05/24/19 at 1515, Routine, Please tube to station 516, blood bank Given 05/24/2019 5:28 PM [facility] 3,000 Units Chest, Left HYDROmorphone (DILAUDID) 2 mg/mL injection 0.5 mg 0.5 mg, IV, EVERY 3 HOURS PRN, Starting on Sat05/24/19 at 0137, Until Sat05/24/19 at 1336, Pain (See admin instructions), Routine Given 05/24/2019 11:24 AM [facility] 0.5 mg Given 05/24/2019 8:18 AM [facility] 0.5 mg Given 05/24/2019 4:50 AM [facility] 0.5 mg HYDROmorphone (DILAUDID) 2 mg/mL injection 0.5 mg 0.5 mg, IV, EVERY 2 HOURS PRN, Starting on Sat05/24/19 at 1454, Until Sat05/24/19 at 2153, Pain (See admin instructions), Routine Given 05/24/2019 6:23 PM [facility] 0.5 mg Given 05/24/2019 3:49 PM [facility] 0.5 mg Given 05/24/2019 2:59 PM [facility] 0.5 mg HYDROmorphone (DILAUDID) 2 mg/mL injection [...] Until Discontinued, Routine Given 05/24/2019 8:23 PM [facility] 1 Units Arm, Right Upper insulin regular (HUMULIN R,NOVOLIN R) 1 Units/mL in sodium chloride 0.9% infusion 2 Units/hr (2 mL/hr), IV, CONTINUOUS, Starting on Sat05/24/19 at 0130, Until Sat05/24/19 at 1022 Rate Change 05/24/2019 7:17 AM [facility] 5 Units/hr 5 mL/hr Rate Change 05/24/2019 4:46 AM [facility] 5 Units/hr 5 mL/hr Rate Change 05/24/2019 4:00 AM [facility] 6 Units/hr 6 mL/hr ketorolac (TORADOL) injection 30 mg 30 mg, IV, ONE TIME ONLY, 1 dose, On Sat05/25/19 at 0530, Routine Given 05/25/2019 5:31 AM [facility] 30 mg levothyroxine (SYNTHROID) tablet 200 mcg 200 mcg, Oral, DAILY EARLY, First dose on Sat05/25/19 at 0600, Until Discontinued, Routine Given 05/25/2019 5:23 AM [facility] 200 mcg morphine 4 mg/mL injection 4 mg 4 mg, IV, ONE TIME ONLY, 1 dose, On Sat05/24/19 at 0115, Routine Given 05/24/2019 1:08 AM [facility] 4 mg ondansetron (ZOFRAN) 4 mg/2 mL injection 4 mg 4 mg, IV, ONE TIME ONLY, 1 dose, On 05/23/19 at 2245, Stat Given 05/23/2019 10:33 PM [facility] 4 mg ondansetron (ZOFRAN) 4 mg/2 mL injection 4 mg 4 mg, IV, ONE TIME ONLY, 1 dose, On 05/24/19 at 0115, Routine Given 05/24/2019 1:08 AM [facility] 4 mg ondansetron (ZOFRAN) 4 mg/2 mL injection 4 mg 4 mg, IV, EVERY 6 HOURS PRN, Starting on 05/24/19 at 1033, Until 05/25/19 at 1922, Nausea/Emesis, Routine Given 05/24/2019 3:22 PM [facility] 4 mg Given 05/24/2019 10:44 AM [facility] 4 mg ONDANSETRON HCL (PF) 4 MG/2 ML INJECTION SOLUTION (CABINET OVERRIDE) 1 dose, Starting on 05/23/19 at 2232, Until 05/23/19 at 2233, [place] OMNICELL: cabinet override pantoprazole (PROTONIX) tablet 40 mg 40 mg, Oral, TWO TIMES DAILY, First dose on 05/24/19 at 2100, Until Discontinued, Routine, Indication: Gastroesophageal reflux disease (GERD) Given 05/25/2019 9:25 AM [facility] 40 mg Given 05/24/2019 8:16 PM [facility] 40 mg sodium chloride 0.9% bolus solution 1,000 mL 1,000 mL, IV, ONE TIME ONLY, 1 dose, On 05/24/19 at 2130, at 2,000 mL/hr, Administer over 30 Minutes, Routine New Bag 05/24/2019 9:39 PM [facility] 1,000 mL 2000 mL/hr sodium chloride 0.9% bolus solution 1,000 mL 1,000 mL, IV, ONE TIME ONLY, 1 dose, On 05/25/19 at 0300, at 2,000 mL/hr, Administer over 30 Minutes, Routine New Bag 05/25/2019 2:54 AM [facility] 1,000 mL 2000 mL/hr sodium chloride 0.9% bolus solution 500 mL 500 mL, IV, ONE TIME ONLY, 1 dose, On 05/24/19 at 2300, at 999 mL/hr, Administer over 30 Minutes, Routine New Bag 05/24/2019 11:00 PM [facility] 500 mL 999 mL/hr sodium chloride 0.9% infusion IV, at 150 mL/hr, CONTINUOUS, Starting on 05/24/19 at 0115, Until 05/24/19 at 1024, Routine New Bag 05/24/2019 1:08 AM [facility] 150 mL/hr sodium chloride 0.9% infusion IV, at 100 mL/hr, CONTINUOUS, Starting on 05/24/19 at 1030, Until 05/25/19 at 1922, Routine New Bag 05/25/2019 1:37 PM [facility] 100 mL/hr New Bag 05/24/2019 10:42 PM [facility] 100 mL/hr New Bag 05/24/2019 10:27 AM [facility] 100 mL/hr documented in this encounter Active and Recently Administered Medications Times are shown in [facility]. Scheduled Medication Order 05/23/2019 05/24/2019 05/25/2019 atorvastatin [...] Routine documented in this encounter Care Teams Garment Tag Stringer Relationship Specialty Start Date End Date Guerrero Middleton PA-C PCP - General Physician Oracle Analyst 02/13/18 documented as of this encounter
--- OUTSIDE RECORDS SUMMARY | 2024-05-03 21:54 | XMS_ITS | Encounter Summary ---
Author Organization [facility] Address [address] Orozco: Epic Prelude ADT [place] [address] Care Team Providers Care Cattle Driver Name Role Phone Guerrero Middleton PA-C [...] you attend [facility] or druze services? Never 08/21/2018 Do you [...] [facility] [phone] [place] [address] Marlys Mayer MD [address] [place] [address] documented as of this encounter Visit Diagnoses Not on filedocumented in this encounter Care Teams Cattle Driver Relationship Specialty Start Date End Date Guerrero Middleton PA-C PCP - General Physician Outside Plant Technician 02/13/18 documented as of this encounter
--- OUTSIDE RECORDS SUMMARY | 2024-05-03 21:54 | XMS_ITS | Encounter Summary ---
Author Organization [facility] Address [address] Orozco: Epic Prelude ADT [place] [address] Care Team Providers Care Qm Consultant Name Role Phone Guerrero Middleton PA-C [...] 08/21/2018 How often do you attend [facility] or alevism services? Never 08/21/2018 Do you [...] [facility] [place] [facility] [address] [place] [address] Marlys Mayer MD [address] [place] [address] documented as of this encounter Visit Diagnoses Not on filedocumented in this encounter Care Teams Qm Consultant Relationship Specialty Start Date End Date Guerrero Middleton PA-C PCP - General Physician Regional Account Manager 02/13/18 documented as of this encounter
--- OUTSIDE RECORDS SUMMARY | 2024-05-03 21:54 | XMS_ITS | Encounter Summary ---
Author Organization [facility] Address [address] Orozco: Epic Prelude ADT [place] [address] Care Team Providers Care Director Long Term Care Name Role Phone Guerrero Middleton PA-C Primary Care Provide r Encounter Details Date Type Department Care Team (Latest Contact Info) Description 06/24/2019 Travel Social History Tobacco Use Types Packs/Day [...] you attend [facility] or sikh services? Never 08/21/2018 Do you [...] [facility] - [facility] [phone] [place] [address] Marlys Mayer MD [address] [place] [address] documented as of this encounter Visit Diagnoses Not on filedocumented in this encounter Care Teams Director Long Term Care Relationship Specialty Start Date End Date Guerrero Middleton PA-C PCP - General Physician Captain Waiter/Waitress 02/13/18 documented as of this encounter
--- OUTSIDE RECORDS SUMMARY | 2024-05-03 21:54 | XMS_ITS | Encounter Summary ---
Author Organization [facility] Address [address] [place] [address] Care Team Providers Care Surgical Garment Assembler Name Role Phone Guerrero Middleton PA-C Primary Care Provide r Reason for Visit * Reason Onset Date Comments Medication Refill 01/15/2020 Encounter Details Date Type Department Care Team (Late st Contact Info) Description 01/15/2020 Refill [facility] Endocrinology [address] [place] [address] Prudence Gates MD [address] [place] [address] Social History Tobacco Use Types [...] and Vascular - [place] [address] [place] [id number] Marlys Mayer MD [address] [place] [address] documented as of this encounter Visit Diagnoses Not on filedocumented in this encounter Care Teams Surgical Garment Assembler Relationship Specialty Start Date End Date Guerrero Middleton PA-C PCP - General Physician Home Appliance Installer 02/13/18 documented as of this encounter
--- OUTSIDE RECORDS SUMMARY | 2024-05-03 21:54 | XMS_ITS | Encounter Summary ---
Author Organization [facility] Address [address] Orozco: Epic Prelude ADT [place] [address] Care Team Providers Care Combination Worker Name Role Phone Guerrero Middleton PA-C Primary Care Provide r Encounter Details Date Type Department Care Team (Latest Contact Info) Description 01/27/2020 Travel Social History Tobacco Use Types Packs/Day [...] you attend [facility] or methodist services? Never 08/21/2018 Do you [...] [facility] [address] [facility] [facility] [address] [place] [address] Marlys Mayer MD [address] [place] [address] documented as of this encounter Visit Diagnoses Not on filedocumented in this encounter Care Teams Combination Worker Relationship Specialty Start Date End Date Guerrero Middleton PA-C PCP - General Physician Information Technology Analyst 02/13/18 documented as of this encounter
--- OUTSIDE RECORDS SUMMARY | 2024-05-03 21:54 | XMS_ITS | Encounter Summary ---
Author Organization [facility] Address [address] Orozco: Epic Prelude ADT [place] [address] Care Team Providers Care Winder Tender Name Role Phone Guerrero Middleton PA-C [...] 08/21/2018 How often do you attend [facility] or pentecostal services? Never 08/21/2018 Do you [...] [facility] [address] [place] [address] Marlys Mayer MD [address] [place] [address] documented as of this encounter Visit Diagnoses Not on filedocumented in this encounter Care Teams Winder Tender Relationship Specialty Start Date End Date Guerrero Middleton PA-C PCP - General Physician Donor Processor 02/13/18 documented as of this encounter
--- OUTSIDE RECORDS SUMMARY | 2024-05-03 21:54 | XMS_ITS | Encounter Summary ---
Author Organization [facility] Address [address] [place] [address] Care Team Providers Care Salesperson Furs Name Role Phone Guerrero Middleton PA-C Primary [...] Tequila t Referred To Contact Emergency Medicine [facility] Emergency Dept [address] [place] [address] Referral ID Status Reason Start Date Expiration Date Visits Re quested Visits Authorized [id number] 1 1 Encounter Details Date Type Department Care Team (Latest Contact Info) Description 02/15/2020 7:34 PM CDT - 02/29/2020 2:02 PM RESPIRATORY THERAPIST Hospital Encounter [facility] [address] [place] [address] Matteo Lyn MD [address] [facility] [place] [address] Loki Vences MD [address] [place] [address] [place] [address] [place] [id number] Richard Mead MD [address] [place] [address] Karen Thomas MD NO ADDRESS [...] Comments Blood Pressure 115/70 02/29/2020 12:34 PM RESPIRATORY THERAPIST Pulse 78 02/29/2020 12:34 PM RESPIRATORY THERAPIST Temperature 36.8 ??C (98.2 ??F) 02/29/2020 12:[address] Respiratory Rate 16 02/29/2020 12:34 PM RESPIRATORY THERAPIST Oxygen Saturation 98% 02/29/2020 12:34 PM RESPIRATORY THERAPIST Inhaled Oxygen Concentration - - Weight 86.7 kg (191 lb 3.2 oz) 02/29/2020 4:15 A M RESPIRATORY THERAPIST Height 165.1 cm (5' 5 ) 02/15/2020 4:56 PM CDT Body Mass Index 31.82 02/15/2020 4:56 PM CDT documented in this encounter Discharge Summaries * Vignesh Badillo MD - 02/29/2020 2:00 AM CST [facility] Adult Discharge Summary Casandra Doss 44 y.o. female 1975 CSN: [id number] Date of Admission: 02/15/2020 Date of Discharge: [...] with PMH of hyperchylomicronemia who presented to [facility] on 02/15/2020 with chief complaint of abdominal [...] prior CT scans. 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 Signed by: Rosalia hTurman MD Quantity: 60 Tablet Refills: 0 ondansetron [...] Your Medications These medications were sent to [facility]/pharmacy #[id number] [place], [place] - [address] [place] [id number] ?? dicyclomine 10 mg capsule ?? qjpdql-jtpwwdsq-slzpxjh DR 12,000-38,000-60,000 unit capsule ?? nortriptyline 25 [...] Contact Information Primary Emergency Contact: RobertJosé Miguel [facility] Relation: Spouse Signed: Kortney Ray DO 02/29/2020, 2:12 AM IRATORY THERAPIST Associated attestation - Karen Thomas MD - 03/01/2020 3:15 PM RESPIRATORY THERAPIST [facility] Adult Hospitalist Attending Note I reviewed the [...] details. Karen Thomas MD 03/01/2020 3:05 PM [facility] Approximately 25 minutes was spent in [...] If no response you may call the oncology technician business management intern at zone phone [phone]. If no response you may call the oncology technician senior resident at zone phone [phone] If no response please contact the attending of record via secure chat. 7 PM to 7 AM: The long call/night float resident should be listed as Resident on the treatment team and can be reached via secure chat. If no response you may call the oncology technician business management intern at zone phone [phone]. If no response you may call the oncology technician senior resident at zone phone [phone] Saturday and Saturday: 7 AM-12 PM: Please contact the resident via secure chat. The resident responsible for the patient will be on the Treatment Team listed as Resident 12 PM-7 AM: The long call/night float resident should be listed as Resident on the treatment teamand can be reached via secure chat. If no response call the oncology technician business management intern at zone phone [phone]. If no response you may call the oncology technician senior resident at zone phone [phone] If no response please contact the [facility] Hospitalist via secure chat. documented in this encounter Discharge Instructions * Discharge Instructions* Vignesh Badillo MD - 02/29/2020 12:11 PM RESPIRATORY THERAPIST Your discharging physicians are Karen Thomas MD /Kortney Ray DO and may be reached at [phone] for any questions or concerns until you see your primary care physician. FOLLOW-UP Follow up with Guerrero Middleton PA-C within 7 days of discharge. This post hospital follow up visit presents a critical opportunity to address the conditions that precipitated your hospitalization andto review the new medications prescribed to your during your stay. Follow up with Dr. Vega, Gastroenterology in 2 weeks. Call [phone] to make an appointment Follow up with Dr. Mayer for apheresis. It is important for you not to skip Apharesis Follow up with [facility] Endocrinology. Call [phone] to schedule a follow up in 2 [...] your blood sugars and follow up with [facility] Endocrinology SELF CARE: getting rest, eating well and increasing your activity appropriately are all excellent ways to return to your usual state of health prior to this hospital stay. ACTIVITY: Your activity level is: no restrictions. DIET Your diet is: low fat. IRATORY THERAPIST documented in this encounter Medications at Time of Discharge Medication Sig Dispensed Refills Start Date End Date traZODone (DESYREL) 100 mg tablet Take 100 mg by mouth daily at bedtime . levothyroxine 200 mcg tablet Take 200 mcg by mouth. 10/28/2018 09/26/2023 metFORMIN (GLUCOPHAGE) 500 mg tablet Take 500 mg by mouth 2 times daily. 06/05/2018 09/26/2023 nzpotd-bmwlhdrb-gqyge se MULLINS (CREON) 12,000-38,000-60,000 unit capsuleIndications:Re current [...] concerns expressed Casandra walked out with her IRATORY THERAPIST * Nery Viramontes NP - 02/29/2020 10:21 AM CST Name: Casandra Doss : 1975 Date: 02/29/2020 Room/Bed: [facility] Hospital Day: LOS: 14 days SUBJECTIVE: Patient [...] starting 20 units basal insulin; f/u with [facility] Endocrine with blood sugar log. Hypertriglyceredemia. Plasma [...] questions. STELLA Bright CDTima 7A - 7P [phone] cell # 7P - 7A [phone] pager IRATORY THERAPIST Associated attestation - Blake Rudd MD - 02/29/2020 12:42 PM RESPIRATORY THERAPIST Discussed with PRINTER TECHNICIAN. Agree with documentation. * Kortney Ray DO [...] does not answer please page via the [employer] E-List 5 PM-7 AM: Via secure text (oncology technician business management intern will place themselves on the treatment team). If the resident does not answer call the zone phone [phone]. If no response please page the senior resident at [phone] Saturday and Saturday: 7 AM-12 PM: Via secure text, if resident does not answer please page via the [employer] E-List 12 PM-7 AM: Via secure text (oncology technician business management intern will place themselves on the treatment team). If the resident does not answer call the [employer] phone [phone]. If no response please page the senior resident [phone] If no response to the above steps in 10 minutes, please page the attending physician via secure text or via the [employer]-list. IRATORY THERAPIST * Vignesh Badillo MD - 02/28/2020 12:56 PM CST [facility] Resident Progress Note Patient Name: Casandra Mccray [...] of pancreatitis. DICTATION LOCATION: Location 1 - [facility] Vignesh Badillo MD 02/28/2020 12:56 PM I discussed the assessment of plan for the above patient with Karen Roman MD This note may have been transcribed using [employer] speaking [place] voice recognition without a human airport manager. This report may or may not have been adjusted for typographical, grammatical and syntax errors. This patient is covered by internal medicine residents To reach Internal Medicine covered patients: Saturday-Saturday 7 AM- 7 PM: Please contact the resident via secure chat. The resident responsible for the patient will be on the Treatment Team listed as Resident If no response you may call the oncology technician business management intern at zone phone [phone]. If no response you may call the oncology technician senior resident at zone phone [phone] If no response please contact the attending of record via secure chat. 7 PM to 7 AM: The long call/night float resident should be listed as Resident on the treatment team and can be reached via secure chat. If no response you may call the oncology technician business management intern at zone phone [phone]. If no response you may call the oncology technician senior resident at zone phone [phone] If no response please contact the Rapid [...] secure chat. If no response call the oncology technician business management intern at zone phone [phone]. If no response you may call the oncology technician senior resident at zone phone [phone] If no response please contact the [facility] Access Hospitalist via secure chat IRATORY THERAPIST Associated attestation - Karen Thomas MD - 03/01/2020 3:13 PM RESPIRATORY THERAPIST [facility] Adult Hospitalist Attending Note I reviewed the [...] details. Karen Thomas MD 03/01/2020 3:09 PM [facility] Hospitalist Approximately 25 minutes was spent in [...] If no response you may call the oncology technician business management intern at zone phone [phone]. If no response you may call the oncology technician senior resident at zone phone [phone] If no response please contact the attending of record via secure chat. 7 PM to 7 AM: The long call/night float resident should be listed as Resident on the treatment team and can be reached via secure chat. If no response you may call the oncology technician business management intern at zone phone [phone]. If no response you may call the oncology technician senior resident at zone phone [phone] Saturday and Saturday: 7 AM-12 PM: Please contact the resident via secure chat. The resident responsible for the patient will be on the Treatment Team listed as Resident 12 PM-7 AM: The long call/night float resident should be listed as Resident on the treatment teamand can be reached via secure chat. If no response call the oncology technician business management intern at zone phone [phone]. If no response you may call the oncology technician senior resident at zone phone [phone] If no response please contact the [facility] Hospitalist via secure chat. * Last Grijalva [...] of pancreatitis. DICTATION LOCATION: Location 1 - [facility] Impression/Plan: At this juncture, I would recommend [...] input needed . Last Grijalva MD [facility] Digestive Disease Pager: [phone] IRATORY THERAPIST * Blake Rudd MD - 02/28/2020 7:38 AM CST Pt now tolerating diet somewhat. Start prandial insulin 3 units with meal + SS. TF's also going which makes insulin coverage challenging. Please notify me if TFs are stopped. Call with questions. [phone] IRATORY THERAPIST * Last Grijalva MD - 02/27/2020 7:27 [...] of pancreatitis. DICTATION LOCATION: Location 1 - [facility] Impression/Plan: At this juncture, I feel it [...] of chronic pancreatitis. Last Grijalva MD [facility] Digestive Disease Pager: [phone] * Ceasar Burnett (Student) - 02/27/2020 10:46 AM CDT [facility] Resident Progress Note Patient Name: Casandra Doss [...] #Insulin Dependent Type 2 Diabetes Mellitus - MAINTENANCE REPAIRER regimen: lantus 35 U in AM, aspart [...] This note may have been transcribed using [employer] speaking computerized voice recognition without a human airport manager. This report may or may not have been adjusted for typographical, grammatical and syntax errors. This patient is covered by internal medicine residents To reach Internal Medicine covered patients: Saturday-Saturday 7 AM- 7 PM: Please contact the resident via secure chat. The resident responsible for the patient will be on the Treatment Team listed as Resident If no response you may call the oncology technician business management intern at zone phone [phone]. If no response you may call the oncology technician senior resident at zone phone [phone] If no response please contact the attending of record via secure chat. 7 PM to 7 AM: The long call/night float resident should be listed as Resident on the treatment team and can be reached via secure chat. If no response you may call the oncology technician business management intern at zone phone [phone]. If no response you may call the oncology technician senior resident at zone phone [phone] If no response please contact the Rapid [...] secure chat. If no response call the oncology technician business management intern at zone phone [phone]. If no response you may call the oncology technician senior resident at zone phone [phone] If no response please contact the [facility] Hospitalist via secure chat Associated attestation - Karen Thmoas MD - 02/27/2020 12:59 PM CDT [facility] Adult Hospitalist Attending Note The patient was [...] consultants). Karen Thomas MD 02/27/2020 12:57 PM [facility] This patient is covered by internal medicine residents To reach Internal Medicine covered patients: Saturday-Saturday 7 AM- 7 PM: Please contact the resident via secure chat. The resident responsible for the patient will be on the Treatment Team listed as Resident If no response you may call the oncology technician business management intern at zone phone [phone]. If no response you may call the oncology technician senior resident at zone phone [phone] If no response please contact the attending of record via secure chat. 7 PM to 7 AM: The long call/night float resident should be listed as Resident on the treatment team and can be reached via secure chat. If no response you may call the oncology technician business management intern at zone phone [phone]. If no response you may call the oncology technician senior resident at zone phone [phone] If no response please contact the [facility] Hospitalist via secure chat Saturday and Saturday: 7 AM-12 PM: Please contact the resident via secure chat. The resident responsible for the patient will be on the Treatment Team listed as Resident 12 PM-7 AM: The long call/night float resident should be listed as Resident on the treatment teamand can be reached via secure chat. If no response call the oncology technician business management intern at zone phone [phone]. If no response you may call the oncology technician senior resident at [facility] phone [phone] If no response please contact the [facility] Hospitalist via secure chat * Blake Rudd MD - 02/27/2020 10:05 AM CDT TFs started. Will add lantus to current regimen. Call with questions. [phone] * Cooper Kahn MD - 02/26/2020 8:09 PM CDT [facility] Internal Medicine Resident Cross Cover Call Two [...] were not included. CLINICAL DIETITIAN PROGRESS NOTE [facility] Follow Up re: nutrition support A: Visited [...] 1.0, PO: clear liquids Nutrient needs: Kcal 5702-4462 (25-30kcal/kg IBW) Protein 68-74g (1.2-1.3g/kg IBW) D: [...] Vianey Desai RD, LD, CNSC Available via [address] RD office: [phone] * Ceasar Burnett (Student) - 02/26/2020 11:46 [...] #Insulin Dependent Type 2 Diabetes Mellitus - MAINTENANCE REPAIRER regimen: lantus 35 U in AM, aspart [...] This note may have been transcribed using [employer] speaking computerized voice recognition without a human airport manager. This report may or may not have been adjusted for typographical, grammatical and syntax errors. This patient is covered by internal medicine residents To reach Internal Medicine covered patients: Saturday-Saturday 7 AM- 7 PM: Please contact the resident via secure chat. The resident responsible for the patient will be on the Treatment Team listed as Resident If no response you may call the oncology technician business management intern at zone phone [phone]. If no response you may call the oncology technician senior resident at zone phone [phone] If no response please contact the attending of record via secure chat. 7 PM to 7 AM: The long call/night float resident should be listed as Resident on the treatment team and can be reached via secure chat. If no response you may call the oncology technician business management intern at zone phone [phone]. If no response you may call the oncology technician senior resident at zone phone [phone] If no response please contact the Rapid [...] secure chat. If no response call the oncology technician business management intern at zone phone [phone]. If no response you may call the oncology technician senior resident at zone phone [phone] If no response please contact the [facility] Hospitalist via secure chat Associated attestation - Karen Thomas MD - 02/26/2020 9:09 PM CDT [facility] Adult Hospitalist Attending Note The patient was [...] consultants). Karen Thomas MD 02/26/2020 9:08 PM [facility] This patient is covered by internal medicine residents To reach Internal Medicine covered patients: Saturday-Saturday 7 AM- 7 PM: Please contact the resident via secure chat. The resident responsible for the patient will be on the Treatment Team listed as Resident If no response you may call the oncology technician business management intern at zone phone [phone]. If no response you may call the oncology technician senior resident at zone phone [phone] If no response please contact the attending of record via secure chat. 7 PM to 7 AM: The long call/night float resident should be listed as Resident on the treatment team and can be reached via secure chat. If no response you may call the oncology technician business management intern at zone phone [phone]. If no response you may call the oncology technician senior resident at zone phone [phone] If no response please contact the Rapid [...] secure chat. If no response call the oncology technician business management intern at zone phone [phone]. 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 STELLA Bright CDE 7A - 7P [phone] cell # 7P - 7A [phone] pager Associated attestation - Blake Rudd MD - 02/26/2020 9:26 AM CDT Discussed with PRINTER TECHNICIAN. Agree with documentation. * Cooper Kahn MD - 02/25/2020 11:38 PM CDT [facility] Internal Medicine Resident Cross Cover Call Two [...] included. CLINICAL DIETITIAN PROGRESS NOTE [facility] Follow Up re: nutrition support A: [...] was on clear liquids Nutrient needs: Kcal 5339-9644 (25-30kcal/kg IBW) Protein 68-74g (1.2-1.3g/kg IBW) D: [...] Vianey Desai RD, LD, CNSC Available via [employer] Secure [employer] RD office: [phone] * Ceasar Burnett (Student) - 02/25/2020 11:39 AM CDT [facility] Resident Progress Note Patient Name: Casandra Doss [...] #Insulin Dependent Type 2 Diabetes Mellitus - MAINTENANCE REPAIRER regimen: lantus 35 U in AM, aspart [...] This note may have been transcribed using [employer] speaking computerized voice recognition without a human airport manager. This report may or may not have been adjusted for typographical, grammatical and syntax errors. This patient is covered by internal medicine residents To reach Internal Medicine covered patients: Saturday-Saturday 7 AM- 7 PM: Please contact the resident via secure chat. The resident responsible for the patient will be on the Treatment Team listed as Resident If no response you may call the oncology technician business management intern at zone phone [phone]. If no response you may call the oncology technician senior resident at zone phone [phone] If no response please contact the attending of record via secure chat. 7 PM to 7 AM: The long call/night float resident should be listed as Resident on the treatment team and can be reached via secure chat. If no response you may call the oncology technician business management intern at zone phone [phone]. If no response you may call the oncology technician senior resident at zone phone [phone] If no response please contact the Rapid [...] secure chat. If no response call the oncology technician business management intern at zone phone [phone]. If no response you may call the oncology technician senior resident at zone phone [phone] If no response please contact the [facility] Hospitalist via secure chat Associated attestation - Karen Thomas MD - 02/26/2020 9:07 PM CDT [facility] Adult Hospitalist Attending Note The patient was [...] consultants). Karen Thomas MD 02/26/2020 8:56 PM [facility] This patient is covered by internal medicine residents To reach Internal Medicine covered patients: Saturday-Saturday 7 AM- 7 PM: Please contact the resident via secure chat. The resident responsible for the patient will be on the Treatment Team listed as Resident If no response you may call the oncology technician business management intern at zone phone [phone]. If no response you may call the oncology technician senior resident at zone phone [phone] If no response please contact the attending of record via secure chat. 7 PM to 7 AM: The long call/night float resident should be listed as Resident on the treatment team and can be reached via secure chat. If no response you may call the oncology technician business management intern at zone phone [phone]. If no response you may call the oncology technician senior resident at zone phone [phone] If no response please contact the [facility] Hospitalist via secure chat Saturday and Saturday: 7 AM-12 PM: Please contact the resident via secure chat. The resident responsible for the patient will be on the Treatment Team listed as Resident 12 PM-7 AM: The long call/night float resident should be listed as Resident on the treatment teamand can be reached via secure chat. If no response call the oncology technician business management intern at zone phone [phone]. If no response you may call the oncology technician senior resident at zone phone [phone] If no response please contact the [facility] Hospitalist via secure chat * Nery Viramontes [...] staff. Please page with questions. Lian Viramontes RIM TURNING FINISHER CDE 7A - 7P [phone] cell # 7P - 7A [phone] pager Associated attestation - Blake Rudd MD - 02/25/2020 12:03 PM CDT Discussed with PRINTER TECHNICIAN. Agree with documentation. * Marlen Murry RN - 02/25/2020 5:30 AM CDT Patient resting quietly in between care. C/o abdominal pain, PO Balwinder and IV Dilaudid given as per JUN. Up independently in room. VSS. Blood sugar checked q4 hours. * Cooper Kahn MD - 02/24/2020 8:58 PM CDT [facility] Resident Cross Cover Call Two patient identifier: Caasndra Doss 1975 Called for: NGT removed, patient [...] Burnett (Student) - 02/24/2020 10:50 AM CDT [facility] Resident Progress Note Patient Name: Casandra Doss [...] #Insulin Dependent Type 2 Diabetes Mellitus - MAINTENANCE REPAIRER regimen: lantus 35 U in AM, aspart [...] This note may have been transcribed using [employer] naturally speaking computerized voice recognition without a human airport manager. This report may or may not have been adjusted for typographical, grammatical and syntax errors. This patient is covered by internal medicine residents To reach Internal Medicine covered patients: Saturday-Saturday 7 AM- 7 PM: Please contact the resident via secure chat. The resident responsible for the patient will be on the Treatment Team listed as Resident If no response you may call the oncology technician business management intern at zone phone [phone]. If no response you may call the oncology technician senior resident at zone phone [phone] If no response please contact the attending of record via secure chat. 7 PM to 7 AM: The long call/night float resident should be listed as Resident on the treatment team and can be reached via secure chat. If no response you may call the oncology technician business management intern at zone phone [phone]. If no response you may call the oncology technician senior resident at zone phone [phone] If no response please contact the Rapid [...] secure chat. If no response call the oncology technician business management intern at zone phone [phone]. If no response you may call the oncology technician senior resident at zone phone [phone] If no response please contact the [facility] Hospitalist via secure chat Associated attestation - Karen Thomas MD - 02/24/2020 9:46 PM CDT [facility] Adult Hospitalist Attending Note The patient was [...] consultants). Karen Thomas MD 02/24/2020 9:40 PM [facility] This patient is covered by internal medicine residents To reach Internal Medicine covered patients: Saturday-Saturday 7 AM- 7 PM: Please contact the resident via secure chat. The resident responsible for the patient will be on the Treatment Team listed as Resident If no response you may call the oncology technician business management intern at zone phone [phone]. If no response you may call the oncology technician senior resident at zone phone [phone] If no response please contact the attending of record via secure chat. 7 PM to 7 AM: The long call/night float resident should be listed as Resident on the treatment team and can be reached via secure chat. If no response you may call the oncology technician business management intern at zone phone [phone]. If no response you may call the oncology technician senior resident at zone phone [phone] If no response please contact the Rapid [...] secure chat. If no response call the oncology technician business management intern at zone phone [phone]. If no response you may call the oncology technician senior resident at zone phone [phone] If no response please contact the [facility] Hospitalist via secure chat * Nery Viramontes, PRINTER TECHNICIAN - 02/23/2020 3:33 PM CDT Name: Casandra Doss : 1975 Date: 02/23/2020 Room/Bed: [facility] Hospital Day: LOS: 8 days SUBJECTIVE: Sitting [...] questions. STELLA Bright CDE 7A - 7P [phone] cell # [phone] - 7A [phone] pager Associated attestation - Blake Rudd MD - 02/23/2020 4:37 PM CDT Discussed with PRINTER TECHNICIAN. Agree with documentation. * Ceasar Burnett (Student) [...] #Insulin Dependent Type 2 Diabetes Mellitus - MAINTENANCE REPAIRER regimen: lantus 35 U in AM, aspart [...] This note may have been transcribed using [employer] speaking [place] voice recognition without a human airport manager. This report may or may not have been adjusted for typographical, grammatical and syntax errors. This patient is covered by internal medicine residents To reach Internal Medicine covered patients: Saturday-Saturday 7 AM- 7 PM: Please contact the resident via secure chat. The resident responsible for the patient will be on the Treatment Team listed as Resident If no response you may call the oncology technician business management intern at zone phone [phone]. If no response you may call the oncology technician senior resident at zone phone [phone] If no response please contact the attending of record via secure chat. 7 PM to 7 AM: The long call/night float resident should be listed as Resident on the treatment team and can be reached via secure chat. If no response you may call the oncology technician business management intern at zone phone [phone]. If no response you may call the oncology technician senior resident at zone phone [phone] If no response please contact the Rapid [...] secure chat. If no response call the oncology technician business management intern at zone phone [phone]. If no response you may call the oncology technician senior resident at zone phone [phone] If no response please contact the [facility] Hospitalist via secure chat Associated attestation - Karen Thomas MD - 02/23/2020 9:03 PM CDT [facility] Adult Hospitalist Attending Note The patient was [...] consultants). Karen Thomas MD 02/23/2020 8:59 PM [facility] This patient is covered by internal medicine residents To reach Internal Medicine covered patients: Saturday-Saturday 7 AM- 7 PM: Please contact the resident via secure chat. The resident responsible for the patient will be on the Treatment Team listed as Resident If no response you may call the oncology technician business management intern at zone phone [phone]. If no response you may call the oncology technician senior resident at zone phone [phone] If no response please contact the attending of record via secure chat. 7 PM to 7 AM: The long call/night float resident should be listed as Resident on the treatment team and can be reached via secure chat. If no response you may call the oncology technician business management intern at zone phone [phone]. If no response you may call the oncology technician senior resident at zone phone [phone] If no response please contact the [facility] Hospitalist via secure chat Saturday and Saturday: 7 AM-12 PM: Please contact the resident via secure chat. The resident responsible for the patient will be on the Treatment Team listed as Resident 12 PM-7 AM: The long call/night float resident should be listed as Resident on the treatment teamand can be reached via secure chat. If no response call the oncology technician business management intern at zone phone [phone]. If no response you may call the oncology technician senior resident at zone phone [phone] If no response please contact the [facility] Hospitalist via secure chat * Vianey Desai, RD - 02/23/2020 9:46 AM CDT Images from the original note were not included. CLINICAL DIETITIAN PROGRESS NOTE [facility] Follow Up re: nutrition support A: [...] was on clear liquids Nutrient needs: Kcal [id number] (25-30kcal/kg IBW) Protein 68-74g (1.2-1.3g/kg IBW) D: Same/ moderate protein-calorie malnutrition I:Nutrition Intervention: as above. Direct messaged MD with recs. Goals: Tolerate TF at goal rate Transition to PO diet as able M/E: 1. Continue to monitor nutrition, weight, lab values, and skin. 2. Follow up every 1-4 days and as needed. Vianey Desai RD, LD, CNSC Available via [address] office: [phone] * Cooper Kahn MD - 02/23/2020 2:52 AM CDT [facility] Internal Medicine Resident Cross Cover Call Two [...] ANP - 02/23/2020 12:43 AM CDT [facility] HOSPITALIST NOTE 02/23/20 12:43 AM [...] #Insulin Dependent Type 2 Diabetes Mellitus - MAINTENANCE REPAIRER regimen: lantus 35 U in AM, aspart [...] This note may have been transcribed using [employer] computerized voice recognition without a human airport manager. This report may or may not have been adjusted for typographical, grammatical and syntax errors. This patient is covered by internal medicine residents To reach Internal Medicine covered patients: Saturday-Saturday 7 AM- 7 PM: Please contact the resident via secure chat. The resident responsible for the patient will be on the Treatment Team listed as Resident If no response you may call the oncology technician business management intern at zone phone [phone]. If no response you may call the oncology technician senior resident at zone phone [phone] If no response please contact the attending of record via secure chat. 7 PM to 7 AM: The long call/night float resident should be listed as Resident on the treatment team and can be reached via secure chat. If no response you may call the oncology technician business management intern at zone phone [phone]. If no response you may call the oncology technician senior resident at zone phone [phone] If no response please contact the Rapid [...] secure chat. If no response call the oncology technician business management intern at zone phone [phone]. If no response you may call the oncology technician senior resident at zone phone [phone] If no response please contact the [facility] Hospitalist via secure chat Associated attestation - Richard Mead MD - 02/22/2020 5:29 PM CDT [facility] Adult Hospitalist Attending Note The patient was [...] (02/22/20899) Richard Mead MD 02/22/2020 5:25 PM [facility] This patient is covered by internal medicine residents To reach Internal Medicine covered patients: Saturday-Saturday 7 AM- 7 PM: Please contact the resident via secure chat. The resident responsible for the patient will be on the Treatment Team listed as Resident If no response you may call the oncology technician business management intern at zone phone [phone]. If no response you may call the oncology technician senior resident at zone phone [phone] If no response please contact the attending of record via secure chat. 7 PM to 7 AM: The long call/night float resident should be listed as Resident on the treatment team and can be reached via secure chat. If no response you may call the oncology technician business management intern at zone phone [phone]. If no response you may call the oncology technician senior resident at zone phone [phone] If no response please contact the Rapid [...] secure chat. If no response call the oncology technician business management intern at zone phone [phone]. If no response you may call the oncology technician senior resident at zone phone [phone] If no response please contact the Rapid [...] #Insulin Dependent Type 2 Diabetes Mellitus - MAINTENANCE REPAIRER regimen: lantus 35 U in AM, aspart [...] This note may have been transcribed using [employer] speaking computerized voice recognition without a human airport manager. This report may or may not have been adjusted for typographical, grammatical and syntax errors. This patient is covered by internal medicine residents To reach Internal Medicine covered patients: Saturday-Saturday 7 AM- 7 PM: Please contact the resident via secure chat. The resident responsible for the patient will be on the Treatment Team listed as Resident If no response you may call the oncology technician business management intern at zone phone [phone]. If no response you may call the oncology technician senior resident at zone phone [phone] If no response please contact the attending of record via secure chat. 7 PM to 7 AM: The long call/night float resident should be listed as Resident on the treatment team and can be reached via secure chat. If no response you may call the oncology technician business management intern at zone phone [phone]. If no response you may call the oncology technician senior resident at zone phone [phone] If no response please contact the Rapid [...] secure chat. If no response call the oncology technician business management intern at zone phone [phone]. If no response you may call the oncology technician senior resident at [facility] phone [phone] If no response please contact the [facility] Hospitalist via secure chat Associated attestation - Richard Mead MD - 02/21/2020 12:43 PM CDT [facility] Adult Hospitalist Attending Note The patient was [...] LIQUID Richard Mead MD 02/21/2020 12:37 PM [facility] Hospitalist This patient is covered by internal medicine residents To reach Internal Medicine covered patients: Saturday-Saturday 7 AM- 7 PM: Please contact the resident via secure chat. The resident responsible for the patient will be on the Treatment Team listed as Resident If no response you may call the oncology technician business management intern at zone phone [phone]. If no response you may call the oncology technician senior resident at zone phone [phone] If no response please contact the attending of record via secure chat. 7 PM to 7 AM: The long call/night float resident should be listed as Resident on the treatment team and can be reached via secure chat. If no response you may call the oncology technician business management intern at zone phone [phone]. If no response you may call the oncology technician senior resident at zone phone [phone] If no response please contact the Rapid [...] secure chat. If no response call the oncology technician business management intern at zone phone [phone]. If no response you may call the oncology technician senior resident at zone phone [phone] If no response please contact the [facility] Hospitalist via secure chat * Ligia Munroe DO - 02/20/2020 6:49 PM CDT [facility] Internal Medicine Resident Cross Cover Call Two [...] Ray DO at 02/19/2020 1638 Edited by: Kortney Ray DO at 02/19/2020 1638 Documentation/Intervention/Outcome: Chart [...] 02/20/2020 5:07 PM CDT ? Approved by: [facility] - Medical Executive Committee Approval Date: 08/18/2019 Adult Bowel Routine Protocol- [facility] ORDERS ARE ENTERED ???PER PROTOCOL?? Enter the protocol in the patient???s electronic health record using check24 .adultbowelroutineprotocol Patient Population: RN to initiate for [...] MD - 02/20/2020 8:52 AM CDT [facility] Adult Progress Note Admit Date: 02/15/2020 Date [...] aspart 25 TID with meals. Depression - MAINTENANCE REPAIRER celexa Hypothyroidism - hypothyroidism 200 mcg Quality/Safety/Core [...] 7 AM- 5 PM: Page [facility] 5 PM-7 AM: Call the oncology technician business management intern at [employer] phone [phone]. If no response please page the senior resident at [phone] Saturday and Saturday: 7 AM-12 PM: [facility] 12 PM-7 AM: Call the oncology technician business management intern at [employer] phone [phone]. If no response please page the senior resident at [phone] If no response to the above steps in 10 minutes, please page the attending physician. * Antwon Silver RN - 02/19/2020 10:50 PM CDT Transport picked up pt to transfer to room 6353. VSS A&Ox4 * Antwon Silver RN - 02/19/2020 10:15 PM CDT Report called to CLAU Mercer for room 6353. VSS, A&Ox4 * Ceasar Burnett (Student) - 02/19/2020 11:38 AM CDT [facility] Resident Progress Note Patient Name: Casandra Doss [...] #Insulin Dependent Type 2 Diabetes Mellitus - MAINTENANCE REPAIRER regimen: Glargine 35 U in AM, aspart [...] This note may have been transcribed using [employer] speaking computerized voice recognition without a human airport manager. This report may or may not have been adjusted for typographical, grammatical and syntax errors. This patient is covered by internal medicine residents To reach Internal Medicine covered patients: Saturday-Saturday 7 AM- 7 PM: Please contact the resident via secure chat. The resident responsible for the patient will be on the Treatment Team listed as Resident If no response you may call the oncology technician business management intern at zone phone [phone]. If no response you may call the oncology technician senior resident at zone phone [phone] If no response please contact the attending of record via secure chat. 7 PM to 7 AM: The long call/night float resident should be listed as Resident on the treatment team and can be reached via secure chat. If no response you may call the oncology technician business management intern at zone phone [phone]. If no response you may call the oncology technician senior resident at zone phone [phone] If no response please contact the Rapid [...] secure chat. If no response call the oncology technician business management intern at zone phone [phone]. If no response you may call the oncology technician senior resident at zone phone [phone] If no response please contact the [facility] Hospitalist via secure chat Associated attestation - Richard Mead MD - 02/19/2020 2:59 PM CDT [facility] Adult Hospitalist Attending Note The patient was [...] fat), Richard Mead MD 02/19/2020 2:40 PM [facility] This patient is covered by internal medicine residents To reach Internal Medicine covered patients: Saturday-Saturday 7 AM- 7 PM: Please contact the resident via secure chat. The resident responsible for the patient will be on the Treatment Team listed as Resident If no response you may call the oncology technician business management intern at zone phone [phone]. If no response you may call the oncology technician senior resident at zone phone [phone] If no response please contact the attending of record via secure chat. 7 PM to 7 AM: The long call/night float resident should be listed as Resident on the treatment team and can be reached via secure chat. If no response you may call the oncology technician business management intern at zone phone [phone]. If no response you may call the oncology technician senior resident at zone phone [phone] If no response please contact the Rapid [...] secure chat. If no response call the oncology technician business management intern at zone phone [phone]. If no response you may call the oncology technician senior resident at zone phone [phone] If no response please contact the Rapid [...] Kahn MD - 02/18/2020 8:12 PM CDT [facility] Internal Medicine Resident Cross Cover Call Two [...] Edited by: Kortney Ray DO at 02/18/2020 0152 Documentation/Intervention/Outcome: Chart reviewed. Called because patient is [...] the procedure. ?? Alize Arteaga MD, PhD [employer], therapeutic apheresis service [phone] ?? Procedure??notes:??Procedure performed using R and L [...] were not included. CLINICAL DIETITIAN PROGRESS NOTE [facility] Nutrition Follow Up Pt reports that she only began feeling poorly 1 day MAINTENANCE REPAIRER, but it was sudden. She remains nauseous with some abd pain. She has been sipping water and juices, but does not like the sugary juices much. She feels she might tolerate some mashed potatoes or toast better. MAINTENANCE REPAIRER she was doing [employer] (5 in 1 meal plan of provided foods 5x/day + 1 meal of veggie and protein) diet suggested by [facility]. She uses their bars and on [...] is 28.29 kg/m??. Last Bowel Movement (mm/dd/yyyy): (MAINTENANCE REPAIRER) (02/18/20 1000) No BM Chin Score: 17 [...] needed. Karen Domingo RD LD Contact via [employer] Secure Chat Phone #: [phone] * Ceasar Burnett (Student) - 02/18/2020 12:13 [...] #Insulin Dependent Type 2 Diabetes Mellitus - MAINTENANCE REPAIRER regimen: Glargine 35 U in AM, aspart [...] This note may have been transcribed using [employer] speaking computerized voice recognition without a human airport manager. This report may or may not have been adjusted for typographical, grammatical and syntax errors. This patient is covered by internal medicine residents To reach Internal Medicine covered patients: Saturday-Saturday 7 AM- 7 PM: Please contact the resident via secure chat. The resident responsible for the patient will be on the Treatment Team listed as Resident If no response you may call the oncology technician business management intern at zone phone [phone]. If no response you may call the oncology technician senior resident at zone phone [phone] If no response please contact the attending of record via secure chat. 7 PM to 7 AM: The long call/night float resident should be listed as Resident on the treatment team and can be reached via secure chat. If no response you may call the oncology technician business management intern at zone phone [phone]. If no response you may call the oncology technician senior resident at zone phone [phone] If no response please contact the Rapid [...] secure chat. If no response call the oncology technician business management intern at zone phone [phone]. If no response you may call the oncology technician senior resident at zone phone [phone] If no response please contact the [facility] Hospitalist via secure chat Associated attestation - Richard Mead MD - 02/18/2020 10:20 PM CDT [facility] Adult Hospitalist Attending Note The patient was [...] LIQUID Richard Mead MD 02/18/2020 10:15 PM [facility] This patient is covered by internal medicine residents To reach Internal Medicine covered patients: Saturday-Saturday 7 AM- 7 PM: Please contact the resident via secure chat. The resident responsible for the patient will be on the Treatment Team listed as Resident If no response you may call the oncology technician business management intern at zone phone [phone]. If no response you may call the oncology technician senior resident at zone phone [phone] If no response please contact the attending of record via secure chat. 7 PM to 7 AM: The long call/night float resident should be listed as Resident on the treatment team and can be reached via secure chat. If no response you may call the oncology technician business management intern at zone phone [phone]. If no response you may call the oncology technician senior resident at zone phone [phone] If no response please contact the [facility] Access Hospitalist via secure chat Saturday and Saturday: 7 AM-12 PM: Please contact the resident via secure chat. The resident responsible for the patient will be on the Treatment Team listed as Resident 12 PM-7 AM: The long call/night float resident should be listed as Resident on the treatment teamand can be reached via secure chat. If no response call the oncology technician business management intern at zone phone [phone]. If no response you may call the oncology technician senior resident at zone phone [phone] If no response please contact the Rapid [...] the procedure. ?? Alize Arteaga MD, PhD [employer], therapeutic apheresis service [phone] ?? Procedure??notes:??Procedure performed using R and L [...] #Insulin Dependent Type 2 Diabetes Mellitus - MAINTENANCE REPAIRER regimen: Glargine 35 U in AM, aspart [...] This note may have been transcribed using [employer] speaking computerized voice recognition without a human airport manager. This report may or may not have been adjusted for typographical, grammatical and syntax errors. This patient is covered by internal medicine residents To reach Internal Medicine covered patients: Saturday-Saturday 7 AM- 7 PM: Please contact the resident via secure chat. The resident responsible for the patient will be on the Treatment Team listed as Resident If no response you may call the oncology technician business management intern at zone phone [phone]. If no response you may call the oncology technician senior resident at zone phone [phone] If no response please contact the attending of record via secure chat. 7 PM to 7 AM: The long call/night float resident should be listed as Resident on the treatment team and can be reached via secure chat. If no response you may call the oncology technician business management intern at zone phone [phone]. If no response you may call the oncology technician senior resident at [facility] phone [phone] If no response please contact the Rapid [...] secure chat. If no response call the oncology technician business management intern at [facility] phone [phone]. If no response you may call the oncology technician senior resident at [facility] phone [phone] If no response please contact the [facility] Hospitalist via secure chat Associated attestation - Jamar Pelaez MD - 02/17/2020 2:54 PM CDT [facility] Adult Hospitalist Attending Note I reviewed the [...] LIQUID Jamar Pelaez MD 02/17/2020 2:52 PM [facility] Hospitalist Approximately 40 minutes was spent in [...] If no response you may call the oncology technician business management intern at zone phone [phone]. If no response you may call the oncology technician senior resident at zone phone [phone] If no response please contact the attending of record via secure chat. 7 PM to 7 AM: The long call/night float resident should be listed as Resident on the treatment team and can be reached via secure chat. If no response you may call the oncology technician business management intern at zone phone [phone]. If no response you may call the oncology technician senior resident at zone phone [phone] Saturday and Saturday: 7 AM-12 PM: Please contact the resident via secure chat. The resident responsible for the patient will be on the Treatment Team listed as Resident 12 PM-7 AM: The long call/night float resident should be listed as Resident on the treatment teamand can be reached via secure chat. If no response call the oncology technician business management intern at zone phone [phone]. If no response you may call the oncology technician senior resident at zone phone [phone] If no response please contact the Rapid [...] 2/2 pulses. Afebrile. SubQ Lovenox. 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 Clear liquid diet. [...] the procedure. ?? Alize Arteaga MD, PhD [employer], therapeutic apheresis service [phone] ?? Procedure??notes:??Procedure performed using R port and [...] Burnett (Student) - 02/16/2020 11:09 AM CDT [facility] Resident Progress Note Patient Name: Casandra Doss [...] #Insulin Dependent Type 2 Diabetes Mellitus - MAINTENANCE REPAIRER regimen: Glargine 35 U in AM, aspart [...] Overnight: Ms. Doss received dilaudid, morphine, and Homosassa overnight for severepain. Her insulin gtt was [...] This note may have been transcribed using [employer] speaking computerized voice recognition without a human airport manager. This report may or may not have been adjusted for typographical, grammatical and syntax errors. This patient is covered by internal medicine residents To reach Internal Medicine covered patients: Saturday-Saturday 7 AM- 7 PM: Please contact the resident via secure chat. The resident responsible for the patient will be on the Treatment Team listed as Resident If no response you may call the oncology technician business management intern at zone phone [phone]. If no response you may call the oncology technician senior resident at zone phone [phone] If no response please contact the attending of record via secure chat. 7 PM to 7 AM: The long call/night float resident should be listed as Resident on the treatment team and can be reached via secure chat. If no response you may call the oncology technician business management intern at zone phone [phone]. If no response you may call the oncology technician senior resident at zone phone [phone] If no response please contact the Rapid [...] secure chat. If no response call the oncology technician business management intern at zone phone [phone]. If no response you may call the oncology technician senior resident at zone phone [phone] If no response please contact the Rapid Access Hospitalist via secure chat Associated attestation - Jamar Pelaez MD - 02/16/2020 4:20 PM CDT [facility] Adult Hospitalist Attending Note I reviewed the [...] w/Meds, Jamar Pelaez MD 02/16/2020 4:13 PM [facility] Approximately 40 minutes was spent in [...] If no response you may call the oncology technician business management intern at zone phone [phone]. If no response you may call the oncology technician senior resident at zone phone [phone] If no response please contact the attending of record via secure chat. 7 PM to 7 AM: The long call/night float resident should be listed as Resident on the treatment team and can be reached via secure chat. If no response you may call the oncology technician business management intern at zone phone [phone]. If no response you may call the oncology technician senior resident at zone phone [phone] Saturday and Saturday: 7 AM-12 PM: Please contact the resident via secure chat. The resident responsible for the patient will be on the Treatment Team listed as Resident 12 PM-7 AM: The long call/night float resident should be listed as Resident on the treatment teamand can be reached via secure chat. If no response call the oncology technician business management intern at zone phone [phone]. If no response you may call the oncology technician senior resident at zone phone [phone] If no response please contact the [facility] Hospitalist via secure chat. * Janie Elizabeth [...] wound care services. 5. Is a medical billing service in place?no If yes, remove device/brace/splint to [...] etc.). Wound care consult was not initiated. [facility] Skin Care Injury Prevention and Treatment Protocol [facility] Approved by: [facility] - Medical Executive Committee [...] Vences MD - 02/15/2020 10:53 PM CDT [facility] Brief Progress note Issue being addressed: [...] Kahn MD - 02/15/2020 8:45 PM CDT [facility] Internal Medicine Teaching Service History & Physical Patient Name: Casandra Doss Attending Physician: Mateto Lyn MD Primary Care Provider: Guerrero Middleton PA-C Date of Admission: 02/15/2020 Date of Service: 02/16/2020 Chief Complaint: Abdominal Pain HPI: Casandra Doss is a 44 y.o. female with a history of chylomicronemia syndrome (receives monthlyapheresis by pathologist Dr. Arteaga and vibrator operator Dr. Gates, last done 01/25/2020) complicated [...] of 16.1, lipase of 68, and triglycerides [id number]. CT demonstrated findings consistent with acute pancreatitis. [...] ESOPHAGOGASTRODUODENOSCOPY performed by Ceasar Vega MD at [facility] GI [facility] Prior to [...] GLUCOSE 192 (H) 74 - 99 mg/dL REAL ESTATE APPRAISER NAME JOSE GUADALUPE CONLEY , Imaging Results [...] DICTATION LOCATION: [facility] N[facility]ative: Exam: CT abdomen and pelvis with [...] - Pain control with PRN Dilaudid and Homosassa 2. History of Chylomicronemia - Triglycerides 4425 [...] appropriate 5. History of Hypothyroidism - Continue MAINTENANCE REPAIRER Levothyroxine when able to tolerate PO 6. History of GERD - Continue MAINTENANCE REPAIRER PPI when able to tolerate PO 7. [...] This note may have been transcribed using [employer] speaking computerized voice recognition without a human airport manager. This report may or may not have been adjusted for typographical, grammatical and syntax errors. This patient is covered by Internal Medicine residents To reach Internal Medicine covered patients: Saturday-Saturday 7 AM- 7 PM: Please contact the resident via secure chat. The resident responsible for the patient will be on the Treatment Team listed as Resident If no response you may call the oncology technician business management intern at zone phone [phone]. If no response you may call the oncology technician senior resident at zone phone [phone] If no response please contact the attending of record via secure chat. 7 PM to 7 AM: The long call/night float resident should be listed as Resident on the treatment team and can be reached via secure chat. If no response you may call the oncology technician business management intern at zone phone [phone]. If no response you may call the oncology technician senior resident at zone phone [phone] If no response please contact the Rapid [...] secure chat. If no response call the oncology technician business management intern at zone phone [phone]. If no response you may call the oncology technician senior resident at zone phone [phone] If no response please contact the [facility] Hospitalist via secure chat Associated attestation - Loki Vences MD - 02/16/2020 1:41 AM CDT [facility] Adult Hospitalist Attending Note I reviewed the [...] Dr. Gates as outpatient. Depression with anxiety- ocean clam boat captain celexa Tobacco use- cessation advised, patch if needed Type 2 diabetes mellitus without complication, with long-term current use of insulin - hold ocean clam boat captain lantus/novolog, monitor BG on insulin gtt. Mildly elevated gap, no ketones obtained prior to gtt. Will monitor Q1 BG and Q4BMP Acquired hypothyroidism - ocean clam boat captain synthroid I reviewed the resident note [...] to correct grammatical errors. Loki Vences MD [facility] Hospitalist For patients admitted by myself between 9pm-7am, please contact me via [employer] secure message with anyquestions or concerns. Outside above hours, the attending has changed, contact attending listed in Not iT or locate patient on the hospitalist e-list and contact the current attending. documented in this encounter Consult Notes * Last Grijalva MD - 02/26/2020 2:31 PM CDTAssociated Order(s): IP CONSULT TO GI Inpatient GI Consultation Note Patient: Casandra Doss / 44 y.o. / female : 1975 Date: 02/26/2020 CSN: [id number] Referring Physician:No ref. provider found PCP: Guerrero [...] [place]. She started out at [facility], but she was told there was nothing further they could do and she was referred to [facility]. She spent most of 2017 in and out of the hospital. 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 She believes she had an EUS at [facility]. She denies having cyst drainage because she was told it was too large and taking up her whole pancreas. 2017 she was hospitalized once a month. States here at [facility]. 2019 she had a port placed of [...] She also reports going to [facility] in 2019 and being told there was nothing they could do that was not already being done in [facility]. She was told her pancreas is like [...] records under care everywhere. No Records from [facility] 11/2018 GI evaluation from [facility] office visit. Listed under care everywhere. Seen [...] ESOPHAGOGASTRODUODENOSCOPY performed by Ceasar Vega MD at [facility] GI [facility] Family History [...] suggest pancreatic insufficiency. She reports EUS at [facility], but do not see record of [...] for this consultation. Hedy Mullins PA-C [facility] Gastroenterology CC: No ref. provider found , [...] pancreatic enzyme supplement. Last Grijalva MD [facility] Digestive Disease Pager: [phone] * Afua John, ARMAND - 02/22/2020 8:40 AM CDTAssociated Order(s): IP CONSULT TO NUTRITION SERVICES Images from the original note were not included. CLINICAL DIETITIAN PROGRESS NOTE [facility] Follow Up Nutrition Assessment Consult received for [...] ESOPHAGOGASTRODUODENOSCOPY performed by Ceasar Vega MD at [facility] GI [facility] Social History Tobacco Use [...] as above/ Pain control prn [facility]. Dm2: insulin gtt tonight and [...] CLINICAL DIETITIAN PROGRESS NOTE [facility] Nutrition Consult: education- hypertriglyceride induced pancreatits PMHx: 44 y.o. female with a history of chylomicronemia syndrome (receives monthly apheresis by pathologist Dr. Arteaga and vibrator operator Dr. Gates, last done 01/25/2020) complicated [...] (02/15/201655) Body mass index is 28.29 kg/m??. [place] body weight: 57 kg (125 lb 10.6 [...] needed. Karen Domingo RD LD Contact via Waterfall Phone #: [phone] documented in this encounter ED Notes * [...] RN - 02/15/2020 7:34 PM CDT Bed: [id number] Expected date: Expected time: Means of arrival: Comments: Angella burgerer * Genoveva Bernal RN - 02/15/2020 6:[address] [facility] ED Adult Female Abdominal Pain Protocol [facility] Approved by: [facility] - Medical Executive Committee Approval Date: 05/14/2019 ORDERS ARE ENTERED ???PER PROTOCOL?? Nursing Orders: o Insert peripheral IV (excessive vomiting or diarrhea) Laboratory Orders: o CBC with diff ([id number]) o CMP (LAB17) o If female of childbearing age: POC Urine HCG (POC7) or HCG Qualitative urine (XLQ129) if sending to lab o Urinalysis with Reflex Microscopy (QFZ204) o Serum HCG (if knowingly ) (MUX071) o Obtain serum lipase (LAB99) if upper abdominal pain o Draw and send extra tubes to lab (ED hold) ([id number]) Diagnostic Test Orders: o If RUQ pain, [...] NPO until otherwise ordered by attending physician [facility] ED Adult Nausea/Vomiting Without Abdominal Pain Protocol [facility] Approved by: [facility] - Medical Executive Committee Approval Date: 05/14/2019 ORDERS ARE ENTERED ???PER PROTOCOL?? Nursing Orders: o Insert peripheral IV Laboratory Orders: o CBC ([id number]) o CMP (LAB17) o Urinalysis with Reflex Microscopy (XKF106) o If female of childbearing age POC Urine HCG (POC7) if waiting room wait time less than 30 minutesor HCG Qualitative urine (UUX337) if waiting room wait time is 30 [...] (montly apheresis managed by pathologist Dr. Arteaga, vibrator operator Dr. Gates) and recurrent pancreatits, who [...] of 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 DICTATION LOCATION: Location [address] [place] [address] CT ABDOMEN PELVIS W CONTRAST PROCEDURES Procedures MEDICAL DECISION MAKING AND PLAN OF CARE --On initial evaluation, discussed plan of obtaining CT abdomen and labs. Will give morphine, Zofran, and IV fluids. Patient understands and agrees with this plan. 2028: Spoke with ANNA Bradshaw for the [facility], who agrees with the management and [...] verified no other needs. IM Letter given. LOBO Schneider, DACIA [id number] Day 1 - Current ([facility]: Adult and Obstetrics) Patient, family, or healthcare designee is participating in individual care plan process Outcome: Met Problem: Discharge Planning Goal: Identify discharge needs upon admission and through discharge Description: Outcome: Progressing IRATORY THERAPIST * Care Plan - Betty Davis RN - 02/29/2020 7:22 AM CST Pt stated she tolerated her dinner that her brought her well. Tube feeding stopped as ordered. Pt was able to take all of her PO meds without issue. Pt denied any pain this am, scheduled painmeds given as ordered. IRATORY THERAPIST * Care Plan - Erin Herndon RN - 02/28/2020 4:29 AM CST Patient slept through the night. Tolerating tube feed well. Up independently. IRATORY THERAPIST * Care Plan - Harvey Littlejohn RN [...] on TF, SW to send orders to [facility]. Will need full spacecraft systems engineer/MD recommendation in the order specifying formula, FWF protocol, calorie goals, anticipated length of need, and details of administration (if it's bolus, gravity, pump, continuous, nocturnal, meal times, etc.). Will also need to have an MD who will follow this in the community.We will have to submit to insurance for approval as well. Updated Jose with [facility] that MD does not plan to DC over weekend. Weekend CM to send orders if received or this SW to follow-up Saturday. LOBO Schneider, DACIA [id number] Day 1 - Current ([facility]: Adult and Obstetrics) Patient, family, or [...] If patient will go to SNF/[place], consider if a LEVEL II PASARR screening [...] / The patient's preferred pharmacy is [id number] [place], [place] - [address] [place] [address] Discussed discharge goals and possible discharge needs including DC home with spouse and possibly with TF through [place]. Sent referral to [facility] and called and notified Jose of possible home TF needed. Care Management contact information provided. Care Management will continue to follow and assist asneeded. LOBO Schneider, DACIA [id number] Day 1 - Current ([facility]: Adult and Obstetrics) Patient, family, or [...] ptambulated without difficulty. 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 Resident and NPaware. No [...] reported relief. No emesis. Ate all of hungarian onion soup, peaches, and saltines. Drinking cranberry [...] bedside coworker Sylvie OLGUIN upon transfer to [facility] Chin Score: Chin Score: 20 (02/19/20 8482) Patient does not have skin breakdown. If [...] wound care services. 5. Is a medical billing service in place?no If yes, remove device/brace/splint to [...] etc.). Wound care consult was not initiated. [facility] Skin Care Injury Prevention and Treatment Protocol [facility] Approved by: [facility] - Medical Executive Committee [...] follow for discharge planning. LOBO Reyes, DACIA [phone] Day 1 - Current ([facility]: Adult and Obstetrics) Patient, family, or [...] [facility] [place] [address] [place] [address] Marlys Mayer MD [address] [place] [address] documented as of this encounter Procedures Procedure Name Priority Date/Time Associated Diagnosis Comments POC GLUCOSE Routine 02/29/2020 11:45 AM RESPIRATORY THERAPIST POC GLUCOSE Routine 02/29/2020 10:01 AM RESPIRATORY THERAPIST CBC WITH DIFFERENTIAL Routine 02/29/2020 7:05 AM RESPIRATORY THERAPIST BASIC METABOLIC PANEL Routine 02/29/2020 7:05 AM RESPIRATORY THERAPIST POC GLUCOSE Routine 02/29/2020 4:16 AM RESPIRATORY THERAPIST POC GLUCOSE Routine 02/29/2020 12:06 AM RESPIRATORY THERAPIST POC GLUCOSE Routine 02/28/2020 9:20 PM RESPIRATORY THERAPIST POC GLUCOSE Routine 02/28/2020 4:20 PM RESPIRATORY THERAPIST POC GLUCOSE Routine 02/28/2020 12:40 PM RESPIRATORY THERAPIST CBC WITH DIFFERENTIAL Routine 02/28/2020 9:42 AM RESPIRATORY THERAPIST BASIC METABOLIC PANEL Routine 02/28/2020 9:42 AM RESPIRATORY THERAPIST POC GLUCOSE Routine 02/28/2020 8:27 AM RESPIRATORY THERAPIST POC GLUCOSE Routine 02/28/2020 4:30 AM RESPIRATORY THERAPIST POC GLUCOSE Routine 02/28/2020 12:41 AM CDT [...] * (ABNORMAL) POC GLUCOSE (02/29/2020 11:45 AM RESPIRATORY THERAPIST) GLUCOSE POC 166(H) 74 - 99 mg/dL 02/29/2020 11:45 AM RESPIRATORY THERAPIST [facility] REAL ESTATE APPRAISER NAME POC APRIL DURAN 02/29/2020 11:45 AM RESPIRATORY THERAPIST [facility] Blood, whole 02/29/2020 11:4 5 AM RESPIRATORY THERAPIST 02/29/2020 11:54 AM RESPIRATORY THERAPIST Karen Thomas MD POINT OF CARE FLY Serrano Performing Organization Address [facility] Co de Phone Number [facility] [employer] [facility]# [id number] [address] [place] [address] * (ABNORMAL) POC GLUCOSE (02/29/2020 10:01 AM RESPIRATORY THERAPIST) GLUCOSE POC 141(H) 74 - 99 mg/dL 02/29/2020 10:01 AM RESPIRATORY THERAPIST [facility] REAL ESTATE APPRAISER NAME POC APRIL DURAN 02/29/2020 10:01 AM [facility] [employer] [facility] Blood, whole 02/29/2020 10:0 1 AM RESPIRATORY THERAPIST 02/29/2020 10:11 AM RESPIRATORY THERAPIST Karen Thomas MD POINT OF CARE FLY Serrano Performing Organization Address City/[facility]/ZIP Co de Phone Number [facility] [employer] [facility]# [id number] [address] [place] [address] * (ABNORMAL) BASIC METABOLIC PANEL (02/29/2020 7:05 AM RESPIRATORY THERAPIST) SODIUM 137 136 - 145 mmol/L 02/29/2020 7:46 AM [facility] POTASSIUM 3.9 3.5 - 5.0 mmol/L 02/29/2020 7:46 AM RESPIRATORY THERAPIST [facility] CHLORIDE 100 98 - 107 mmol/L 02/29/2020 7:46 AM [facility] CO2 25 22 - 29 mmol/L 02/29/2020 7:46 AM [facility] CALCIUM 9.1 8.6 - 10.2 mg/dL 02/29/2020 7:46 AM [facility] BUN 10 6 - 20 mg/dL 02/29/2020 7:46 AM [facility] CREATININE 0.51 0.51 - 0.95 mg/dL 02/29/2020 7:46 AM [facility] [employer] [facility] GLUCOSE 219(H) 74 - 99 mg/dL 02/29/2020 7:46 AM [facility] [employer] [facility] GFR >60 >=60 mL/min/1.7 3 sq meter 02/29/2020 7:46 AM [facility] [employer] [facility] Comment: eGFR has [...] mL/min/1.7 3 sq meter 02/29/2020 7:46 AM [facility] ANION GAP 12 8 - 16 mmol/L 02/29/2020 7:46 AM [facility] [employer] [facility] Blood Venipuncture / Unknown 02/29/2020 7:05 AM RESPIRATORY THERAPIST 02/29/2020 7:09 AM RESPIRATORY THERAPIST Karen Thomas MD CHEMISTRY ORDERABLES [facility] [employer] [facility]# [id number] [address] [facility] [place] [address] * (ABNORMAL) CBC WITH DIFFERENTIAL (02/29/2020 7:05 AM RESPIRATORY THERAPIST) [facility] WBC 9.6 4.0 - 9.8 K/uL 02/29/2020 7:18 AM [facility] RBC 4.13 3.90 - 4.90 M/uL 02/29/2020 7:18 AM [facility] HEMOGLOBIN 12.0 11.8 - 14.8 g/dL 02/29/2020 7:18 AM [facility] HEMATOCRIT 37.7 35.5 - 44.0 % 02/29/2020 7:18 AM [facility] MCV 91.3 82.0 - 99.0 fL 02/29/2020 7:18 AM [facility] MCH 29.1 27.2 - 32.6 pg 02/29/2020 7:18 AM [facility] MCHC 31.8 31.5 - 35.5 g/dL 02/29/2020 7:18 AM [facility] RDW 14.4 11.5 - 14.5 % 02/29/2020 7:18 AM [facility] RDW-STDEV 48.1 37.1 - 48.7 fL 02/29/2020 7:18 AM [facility] PLATELETS 316 140 - 350 K/uL 02/29/2020 7:18 AM [facility] MPV 8.8(L) 9.3 - 12.4 fL 02/29/2020 7:18 AM [facility] NEUTROPHILS 65 % 02/29/2020 7:18 AM [facility] LYMPHOCYTES 27 % 02/29/2020 7:18 AM [facility] - . [facility] MONOCYTES 5 % 02/29/2020 7:18 AM [facility] - . [facility] EOSINOPHILS 1 % 02/29/2020 7:18 AM [facility] - . [facility] BASOPHILS 1 % 02/29/2020 7:18 AM [facility] - . [facility] IMMATURE GRANULOCYTES 1 % 02/29/2020 7:18 AM [facility] Comment:IG (Immature Granulo cyte) count includes Metamyelocytes, Myelocytes, and Promyelocytes NEUTROPHIL ABSOLUTE 6.25 1.90 - 7.00 K/uL 02/29/2020 7:18 AM [facility] SERVICES - . [facility] LYMPHOCYTE ABSOLUTE 2.63 0.70 - 4.50 K/uL 02/29/2020 7:18 AM [facility] - [facility] MONOCYTE ABSOLUTE 0.47 0.10 - 1.30 K/uL 02/29/2020 7:18 AM [facility] - [facility] EOSINOPHIL ABSOLUTE 0.09 0.00 - 0.70 K/uL 02/29/2020 7:18 AM RESPIRATORY THERAPIST [employer] LABORATORY SERVICES - [facility] BASOPHILS ABSOLUTE 0.05 0.00 - 0.20 K/uL 02/29/2020 7:18 AM [facility] [employer] LABORATORY SERVICES - . [facility] IMMATURE GRANULOCYTES ABSOLUTE 0.12(H) 0.00 - 0.03 K/uL 02/29/2020 7:18 AM [facility] [employer] [facility] LABORATORY SERVICES - [facility] Blood Venipuncture / Unknown 02/29/2020 7:05 AM RESPIRATORY THERAPIST 02/29/2020 7:09 AM RESPIRATORY THERAPIST Karen Thomas MD HEMATOLOGY ORDERABLE S [facility] [employer] [facility] CLNV# [id number] [address] [place] [address] * (ABNORMAL) POC GLUCOSE (02/29/2020 4:16 AM RESPIRATORY THERAPIST) [facility] Signature GLUCOSE POC 202(H) 74 - 99 mg/dL 02/29/2020 4:16 AM RESPIRATORY THERAPIST [facility] LABORATORY SERVICES [facility] REAL ESTATE APPRAISER NAME POC CONNIE BOWLES 02/29/2020 4:16 AM RESPIRATORY THERAPIST [employer] SERVICES [facility] Blood, whole 02/29/2020 4:16 AM RESPIRATORY THERAPIST 02/29/2020 5:16 AM RESPIRATORY THERAPIST Karen Thomas MD POINT OF CARE TESTIN G [facility] [employer] [facility] CLIA# [id number] [address] [place] [address] * (ABNORMAL) POC GLUCOSE (02/29/2020 12:06 AM RESPIRATORY THERAPIST) GLUCOSE POC 231(H) 74 - 99 mg/dL 02/29/2020 12:06 AM RESPIRATORY THERAPIST [facility] LABORATORY [facility] REAL ESTATE APPRAISER NAME CONNIE JOHNSON 02/29/2020 12:06 AM RESPIRATORY THERAPIST [facility] LABORATORY SERVICES [facility] Blood, whole 02/29/2020 12:0 6 AM RESPIRATORY THERAPIST 02/29/2020 12:13 AM RESPIRATORY THERAPIST Karen Thomas MD POINT OF CARE TESTIN Maggie [facility] CLNV# [id number] [address] [place] [address] * (ABNORMAL) POC GLUCOSE (02/28/2020 9:20 PM RESPIRATORY THERAPIST) GLUCOSE POC 197(H) 74 - 99 mg/dL 02/28/2020 9:20 PM RESPIRATORY THERAPIST [facility] LABORATORY [facility] COMMENT, GLU POC Notified RN/ 02/28/2020 9:20 PM RESPIRATORY THERAPIST [facility] LABORATORY [facility] REAL ESTATE APPRAISER NAME CONNIE JOHNSON 02/28/2020 9:20 PM RESP[facility]ATORY THERAPIST [facility] [employer] LAB[facility] Blood, whole 02/28/2020 9:20 PM RESPIRATORY THERAPIST 02/28/2020 9:35 PM RESPIRATORY THERAPIST Karen Thomas MD POINT OF CARE TESTIN Maggie [facility] [employer] [facility] CLIA# [id number] [address] [place] [address] * (ABNORMAL) POC GLUCOSE (02/28/2020 4:20 PM RESPIRATORY THERAPIST) GLUCOSE POC 170(H) 74 - 99 mg/dL 02/28/2020 4:20 PM RESPIRATORY THERAPIST [facility] [employer] LABORATORY [facility] COMMENT, GLU POC Notified RN/ 02/28/2020 4:20 PM RESPIRATORY THERAPIST [facility] LABORATORY [facility] REAL ESTATE APPRAISER NAME POC CLIFFORD JOHNSON (ROSALIO) 02/28/2020 4:20 PM RESPIRATORY THERAPIST [facility] LABORATORY [facility] Blood, whole 02/28/2020 4:20 PM RESPIRATORY THERAPIST 02/28/2020 4:28 PM RESPIRATORY THERAPIST Karen Thomas MD POINT OF CARE TESTIN G Performing Organization Address [facility]/ZIP Co de Phone Number [facility] LABORATORY [facility]# [id number] [address] [place] [address] * (ABNORMAL) POC GLUCOSE (02/28/2020 12:40 PM RESPIRATORY THERAPIST) GLUCOSE POC 251(H) 74 - 99 mg/dL 02/28/2020 12:40 PM RESPIRATORY THERAPIST [facility] LABORATORY [facility] COMMENT, GLU POC Notified RN/MD 02/28/2020 12:40 PM RESPIRATORY THERAPIST [facility] LABORATORY [facility] REAL ESTATE APPRAISER NAME POC CLIFFORD JOHNSON (ROSALIO) 02/28/2020 12:40 PM RESPIRATORY THERAPIST [facility] [employer] LABORATORY [facility] Blood, whole 02/28/2020 12:4 0 PM RESPIRATORY THERAPIST 02/28/2020 4:28 PM RESPIRATORY THERAPIST Karen Thomas MD POINT OF CARE TESTJERONIMO Performing Organization Address [facility]/ZIP Co de Phone Number [facility] [employer] [facility]# [id number] [address] [place] [address] * (ABNORMAL) BASIC METABOLIC PANEL (02/28/2020 9:42 AM RESPIRATORY THERAPIST) SODIUM 137 136 - 145 mmol/L 02/28/2020 10:39 AM RESPIRATORY THERAPIST [facility] LABORATORY SERVICES [facility] POTASSIUM 4.3 3.5 - 5.0 mmol/L 02/28/2020 10:39 AM RESPIRATORY THERAPIST [facility] LABORATORY SERVICES [facility] CHLORIDE 101 98 - 107 mmol/L 02/28/2020 10:39 AM RESPIRATORY THERAPIST [employer] LABORATORY SERVICES [facility] CO2 28 22 - 29 mmol/L 02/28/2020 10:39 AM RESPIRATORY THERAPIST [employer] LABORATORY [facility] CALCIUM 9.1 8.6 - 10.2 mg/dL 02/28/2020 10:39 AM [facility] [facility] LABORATORY [facility] BUN 10 6 - 20 mg/dL 02/28/2020 10:39 AM [facility] CREATININE 0.55 0.51 - 0.95 mg/dL 02/28/2020 10:39 AM [facility] [employer] [facility] GLUCOSE 239(H) 74 - 99 mg/dL 02/28/2020 10:39 AM [facility] [employer] [facility] GFR >60 >=60 mL/min/1.7 3 sq meter 02/28/2020 10:39 AM [facility] [employer] [facility] Comment: eGFR has [...] mL/min/1.7 3 sq meter 02/28/2020 10:39 AM [facility] [employer] LABORATORY [facility] ANION GAP 8 8 - 16 mmol/L 02/28/2020 10:39 AM [facility] [employer] [facility] Blood Venipuncture / Unknown 02/28/2020 9:42 AM RESPIRATORY THERAPIST 02/28/2020 10:07 AM RESPIRATORY THERAPIST Karen Thomas MD CHEMISTRY ORDERABLES [facility] [employer] [facility] CLIA# [id number] [address] [place] [address] * (ABNORMAL) CBC WITH DIFFERENTIAL (02/28/2020 9:42 AM RESPIRATORY THERAPIST) WBC 8.4 4.0 - 9.8 K/uL 02/28/2020 10:19 AM [facility] [employer] [facility] RBC 4.20 3.90 - 4.90 M/uL 02/28/2020 10:19 AM [facility] HEMOGLOBIN 12.1 11.8 - 14.8 g/dL 02/28/2020 10:19 AM [facility] HEMATOCRIT 38.3 35.5 - 44.0 % 02/28/2020 10:19 AM [facility] MCV 91.2 82.0 - 99.0 fL 02/28/2020 10:19 AM [facility] MCH 28.8 27.2 - 32.6 pg 02/28/2020 10:19 AM [facility] - [facility] MCHC 31.6 31.5 - 35.5 g/dL 02/28/2020 10:19 AM [facility] RDW 14.5 11.5 - 14.5 % 02/28/2020 10:19 AM [facility] - . [facility] RDW-STDEV 48.2 37.1 - 48.7 fL 02/28/2020 10:19 AM [facility] - [facility] PLATELETS 362(H) 140 - 350 K/uL 02/28/2020 10:19 AM [facility] - . [facility] MPV 8.9(L) 9.3 - 12.4 fL 02/28/2020 10:19 AM [facility] - . [facility] NEUTROPHILS 65 % 02/28/2020 10:19 AM [facility] - . [facility] LYMPHOCYTES 27 % 02/28/2020 10:19 AM [facility] MONOCYTES 5 % 02/28/2020 10:19 AM [facility] EOSINOPHILS 1 % 02/28/2020 10:19 AM [facility] BASOPHILS 1 % 02/28/2020 10:19 AM [facility] IMMATURE GRANULOCYTES 1 % 02/28/2020 10:19 AM [facility] - . [facility] Comment:IG (Immature Granulo cyte) count includes Metamyelocytes, Myelocytes, and Promyelocytes NEUTROPHIL ABSOLUTE 5.44 1.90 - 7.00 K/uL 02/28/2020 10:19 AM [facility] - . [facility] LYMPHOCYTE ABSOLUTE 2.28 0.70 - 4.50 K/uL 02/28/2020 10:19 AM RESPIRATORY THERAPIST [employer] LABORATORY SERVICES - . [facility] MONOCYTE ABSOLUTE 0.45 0.10 - 1.30 K/uL 02/28/2020 10:19 AM RESPIRATORY THERAPIST [employer] [facility]ATORY [facility] - [facility] EOSINOPHIL ABSOLUTE 0.09 0.00 - 0.70 K/uL 02/28/2020 10:19 AM RESPIRATORY THERAPIST [employer] LABORATORY SERVICES - . [facility] BASOPHILS ABSOLUTE 0.05 0.00 - 0.20 K/uL 02/28/2020 10:19 AM RESPIRATORY THERAPIST [employer] LABORATORY SERVICES - . [facility] IMMATURE GRANULOCYTES ABSOLUTE 0.12(H) 0.00 - 0.03 K/uL 02/28/2020 10:19 AM [facility] [employer] LABORATORY SERVICES [facility] Blood Venipuncture / Unknown 02/28/2020 9:42 AM RESPIRATORY THERAPIST 02/28/2020 10:07 AM RESPIRATORY THERAPIST Karen Thomas MD HEMATOLOGY ORDERABLE S [facility] [employer] [facility] CLIA# [id number] [address] [place] [address] * (ABNORMAL) POC GLUCOSE (02/28/2020 8:27 AM RESPIRATORY THERAPIST) [facility] GLUCOSE POC 200(H) 74 - 99 mg/dL 02/28/2020 8:27 AM [facility] [facility] LABORATORY [facility] COMMENT, GLU POC Notified RN/ 02/28/2020 8:27 AM [facility] [employer] LABORATORY SERVICES [facility] REAL ESTATE APPRAISER NAME POC CLIFFORD JOHNSON (ROSALIO) 02/28/2020 8:27 AM [facility] [employer] LABORATORY SERVICES [facility] Blood, whole 02/28/2020 8:27 AM RESPIRATORY THERAPIST 02/28/2020 8:34 AM RESPIRATORY THERAPIST Karen Thomas MD POINT OF CARE TESTIN G [facility] [employer] [facility] CLIA# [id number] [address] [place] [address] * (ABNORMAL) POC GLUCOSE (02/28/2020 4:30 AM RESPIRATORY THERAPIST) GLUCOSE POC 206(H) 74 - 99 mg/dL 02/28/2020 4:30 AM RESPIRATORY THERAPIST [facility] LABORATORY [facility] REAL ESTATE APPRAISER NAME POC SYLVIE CARROLL 02/28/2020 4:30 AM RESPIRATORY THERAPIST [facility] LABORATORY SERVICES [facility] Blood, whole 02/28/2020 4:30 AM RESPIRATORY THERAPIST 02/28/2020 4:55 AM RESPIRATORY THERAPIST Karen hTomas MD POINT OF CARE TESTIN G Performing Organization Address [facility]/ZIP Co de Phone Number [facility] CLIA# [id number] [address] [place] [address] * (ABNORMAL) POC GLUCOSE (02/28/2020 12:41 AM CDT) GLUCOSE POC 193(H) 74 - 99 mg/dL 02/28/2020 12:41 AM CDT [facility] LABORATORY [facility] REAL ESTATE APPRAISER NAME POC SYLVIE CARROLL 02/28/2020 12:41 AM CDT [facility] LABORATORY [facility] Blood, whole 02/28/2020 12:4 1 AM CDT 02/28/2020 12:58 AM CDT Karen Thomas MD POINT OF CARE TESTJERONIMO Maggie [facility] CLIA# [id number] [address] [place] [place] [address] * (ABNORMAL) POC GLUCOSE (02/27/2020 8:29 PM CDT) GLUCOSE POC 231(H) 74 - 99 mg/dL 02/27/2020 8:29 PM CDT [facility] LABORATORY [facility] REAL ESTATE APPRAISER NAME POC SYLVIE CARROLL 02/27/2020 8:29 PM CDT [facility] LABORATORY SERVICES [facility] Blood, whole 02/27/2020 8:29 PM CDT 02/27/2020 8:54 PM CDT Karen Thomas MD POINT OF CARE TESTIN Maggie [facility] CLIA# [id number] [address] [place] [address] * (ABNORMAL) POC GLUCOSE (02/27/2020 4:32 PM CDT) GLUCOSE POC 193(H) 74 - 99 mg/dL 02/27/2020 4:32 PM CDT [facility] LABORATORY [facility] REAL ESTATE APPRAISER NAME POC HARVEY LITTLEJOHN (ELI) 02/27/2020 4:32 PM CDT [facility] LABORATORY [facility] Blood, whole 02/27/2020 4:32 PM CDT 02/27/2020 4:40 PM CDT Karen Thomas MD POINT OF CARE TESTJERONIMO Maggie Performing Organization Address [facility]/ZIP Co de Phone Number [facility] [employer] [facility] CLIA# [id number] [address] [place], [place] [address] * (ABNORMAL) POC GLUCOSE (02/27/2020 12:17 PM CDT) GLUCOSE POC 158(H) 74 - 99 mg/dL 02/27/2020 12:17 PM CDT [facility] LABORATORY [facility] REAL ESTATE APPRAISER NAME POC SHEREEN FLORES 02/27/2020 12:17 PM CDT [facility] LABORATORY [facility] Blood, whole 02/27/2020 12:1 7 PM CDT 02/27/2020 12:27 PM CDT Karen Thomas MD POINT OF CARE TESTIN Maggie [facility] [employer] [facility] CLIA# [id number] [address] [place] [address] * (ABNORMAL) CBC WITH DIFFERENTIAL (02/27/2020 8:42 AM CDT) [facility] WBC 7.2 4.0 - 9.8 K/uL 02/27/2020 9:58 AM CDT [facility] - [facility] RBC 3.79(L) 3.90 - 4.90 M/uL 02/27/2020 9:58 AM CDT [facility] - [facility] HEMOGLOBIN 11.2(L) 11.8 - 14.8 g/dL 02/27/2020 9:58 AM CDT [facility] - [facility] HEMATOCRIT 35.1(L) 35.5 - 44.0 % 02/27/2020 9:58 AM CDT [facility] - [facility] MCV 92.6 82.0 - 99.0 fL 02/27/2020 9:58 AM CDT [facility] - [facility] MCH 29.6 27.2 - 32.6 pg 02/27/2020 9:58 AM CDT [facility] - [facility] MCHC 31.9 31.5 - 35.5 g/dL 02/27/2020 9:58 AM CDT [facility] - [facility] RDW 14.6(H) 11.5 - 14.5 % 02/27/2020 9:58 AM CDT [facility] - [facility] RDW-STDEV 49.6(H) 37.1 - 48.7 fL 02/27/2020 9:58 AM CDT [facility] - [facility] PLATELETS 315 140 - 350 K/uL 02/27/2020 9:58 AM CDT [facility] - [facility] MPV 9.0(L) 9.3 - 12.4 fL 02/27/2020 9:58 AM CDT [facility] - [facility] NEUTROPHILS 58 % 02/27/2020 9:58 AM CDT [facility] SERVICES - . [facility] LYMPHOCYTES 32 % 02/27/2020 9:58 AM CDT [facility] - . [facility] MONOCYTES 7 % 02/27/2020 9:58 AM CDT [facility] - . [facility] EOSINOPHILS 1 % 02/27/2020 9:58 AM CDT [facility] SERVICES - . [facility] BASOPHILS 1 % 02/27/2020 9:58 AM CDT [facility] - . [facility] IMMATURE GRANULOCYTES 1 % 02/27/2020 9:58 AM CDT [facility] LABORATORY SERVICES [facility] Comment:IG (Immature Granulo cyte) count includes Metamyelocytes, Myelocytes, and Promyelocytes NEUTROPHIL ABSOLUTE 4.16 1.90 - 7.00 K/uL 02/27/2020 9:58 AM CDT [facility] LABORATORY [facility] LYMPHOCYTE ABSOLUTE 2.29 0.70 - 4.50 K/uL 02/27/2020 9:58 AM CDT [facility] LABORATORY SERVICES [facility] MONOCYTE ABSOLUTE 0.50 0.10 - 1.30 K/uL 02/27/2020 9:58 AM CDT [facility] LABORATORY SERVICES - . [facility] EOSINOPHIL ABSOLUTE 0.08 0.00 - 0.70 K/uL 02/27/2020 9:58 AM CDT [facility] LABORATORY SERVICES - . [facility] BASOPHILS ABSOLUTE 0.04 0.00 - 0.20 K/uL 02/27/2020 9:58 AM CDT [facility] LABORATORY SERVICES [facility] IMMATURE GRANULOCYTES ABSOLUTE 0.08(H) 0.00 - 0.03 K/uL 02/27/2020 9:58 AM CDT [facility] LABORATORY [facility] Blood Venipuncture / Unknown 02/27/2020 8:42 AM CDT 02/27/2020 9:36 AM CDT Karen Thomas MD HEMATOLOGY ORDERABLE S [facility] [employer] [facility] CLIA# [id number] [address] [place] [place] [address] * PHOSPHORUS (02/27/2020 8:42 AM CDT) PHOSPHORUS 2.5 2.5 - 4.5 mg/dL 02/27/2020 10:27 AM CDT [facility] [employer] [facility] Blood Venipuncture / Unknown 02/27/2020 8:42 AM CDT 02/27/2020 9:36 AM CDT Karen Thomas MD CHEMISTRY ORDERABLES [facility] [employer] [facility] CLIA# [id number] [address] [place] [address] * MAGNESIUM LEVEL (02/27/2020 8:42 AM CDT) MAGNESIUM 1.8 1.6 - 2.6 mg/dL 02/27/2020 10:27 AM CDT [facility] [employer] [facility] Blood Venipuncture / Unknown 02/27/2020 8:42 AM CDT 02/27/2020 9:36 AM CDT Karen Thomas MD CHEMISTRY ORDERABLES [facility] [employer] [facility] CLIA# [id number] [address] [place] [address] * (ABNORMAL) BASIC METABOLIC PANEL (02/27/2020 8:42 AM CDT) Pathologist [facility] SODIUM 136 136 - 145 mmol/L 02/27/2020 10:27 AM CDT [employer] LABORATORY [facility] POTASSIUM 3.8 3.5 - 5.0 mmol/L 02/27/2020 10:27 AM T [employer] LABORATORY [facility] CHLORIDE 102 98 - 107 mmol/L 02/27/2020 10:27 AM T [employer] LABORATORY [facility] CO2 27 22 - 29 mmol/L 02/27/2020 10:27 AM T [employer] LABORATORY [facility] CALCIUM 8.2(L) 8.6 - 10.2 mg/dL 02/27/2020 10:27 AM T [employer] LABORATORY [facility] BUN 6 6 - 20 mg/dL 02/27/2020 10:27 AM T [employer] LABORATORY SERVICES [facility] CREATININE 0.50(L) 0.51 - 0.95 mg/dL 02/27/2020 10:27 AM T [employer] [facility] GLUCOSE 240(H) 74 - 99 mg/dL 02/27/2020 10:27 AM T [employer] LABORATORY SERVICES [facility] GFR >60 >=60 mL/min/1.7 3 sq meter 02/27/2020 10:27 AM T [facility] LABORATORY [facility] Comment: eGFR has [...] 3 sq meter 02/27/2020 10:27 AM CDT [facility] [employer] [facility] ANION GAP 7(L) 8 - 16 mmol/L 02/27/2020 10:27 AM CDT [facility] Blood Venipuncture / Unknown 02/27/2020 8:42 AM CDT 02/27/2020 9:36 AM CDT Karen Thomas MD CHEMISTRY ORDERABLES [facility] CLIA# [id number] [address] [place] [address] * (ABNORMAL) POC GLUCOSE (02/27/2020 8:23 AM CDT) [facility] Signature GLUCOSE POC 199(H) 74 - 99 mg/dL 02/27/2020 8:23 AM CDT [facility] [employer] [facility] REAL ESTATE APPRAISER NAME POC FLORES SHEREEN 02/27/2020 8:23 AM CDT [facility] [employer] [facility] Blood, whole 02/27/2020 8:23 AM CDT 02/27/2020 8:50 AM CDT Karen Thomas MD POINT OF CARE TESTIN G [facility] [employer] [facility] CLIA# [id number] [address] [place] [address] * (ABNORMAL) POC GLUCOSE (02/27/2020 5:17 AM CDT) GLUCOSE POC 177(H) 74 - 99 mg/dL 02/27/2020 5:17 AM CDT [facility] REAL ESTATE APPRAISER NAME POC SCHUYLER CHADWICK 02/27/2020 5:17 AM CDT [facility] Blood, whole 02/27/2020 5:17 AM CDT 02/27/2020 5:36 AM CDT Karen Thomas MD POINT OF CARE TESTIN G [facility] CLIA# [id number] [address] [place] [address] * CT ABDOMEN PELVIS W CONTRAST (02/26/2020 10:25 PM CDT) Anatomical Region Laterality Modality Abdomen Computed Tomogra phy 02/26/2020 10:3 0 PM CDT Impressions 02/26/2020 10:37 PM CDT IMPRESSION: Trace right pleural effusion and bibasilar atelectasis. Residual peripancreatic infiltrative change, improved from prior examination. Hypodense pancreatic tail lesion again noted, likely pseudocyst in the setting of pancreatitis. DICTATION LOCATION: Location 1 - [facility] Narrative 02/26/2020 10:[address] ABDOMEN [...] of pancreatitis. DICTATION LOCATION: Location 1 - [facility] Hedy MANN CT ORDERABLES * (ABNORMAL) POC GLUCOSE (02/26/2020 9:44 PM CDT) GLUCOSE POC 214(H) 74 - 99 mg/dL 02/26/2020 9:44 PM CDT [facility] [employer] [facility] REAL ESTATE APPRAISER NAME POC SCHUYLER CHADWICK 02/26/2020 9:44 PM CDT [facility] [employer] [facility] SERVICES [facility] Blood, whole 02/26/2020 9:44 PM CDT 02/27/2020 3:04 AM CDT Karen Thomas MD POINT OF CARE TESTJERONIMO G [facility] LABORATORY [facility] CLIA# [id number] [address] [place] [address] * (ABNORMAL) POC GLUCOSE (02/26/2020 6:15 PM CDT) GLUCOSE POC 171(H) 74 - 99 mg/dL 02/26/2020 6:15 PM CDT [facility] [employer] LABORATORY SERVICES [facility] REAL ESTATE APPRAISER NAME POC GRACIE BRAXTON 02/26/2020 6:15 PM CDT [employer] LABORATORY SERVICES [facility] Blood, whole 02/26/2020 6:15 PM CDT 02/26/2020 8:11 PM CDT Karen Thomas MD POINT OF CARE TESTJERONIMO Maggie Performing Organization Address City/[facility]/ZIP Co de Phone Number [facility] [employer] [facility] CLIA# [id number] [address] [place] [address] * (ABNORMAL) POC GLUCOSE (02/26/2020 12:55 PM CDT) GLUCOSE POC 123(H) 74 - 99 mg/dL 02/26/2020 12:55 PM CDT [facility] [employer] LABORATORY SERVICES [facility] REAL ESTATE APPRAISER NAME POC SHARYN STANLEY 02/26/2020 12:55 PM CDT [employer] LABORATORY SERVICES [facility] Blood, whole 02/26/2020 12:5 5 PM CDT 02/26/2020 1:10 PM CDT Karen Thomas MD POINT OF CARE TESTJERONIMO Serrano [facility]# [id number] [address] [place] [address] * (ABNORMAL) POC GLUCOSE (02/26/2020 9:37 AM CDT) GLUCOSE POC 182(H) 74 - 99 mg/dL 02/26/2020 9:37 AM CDT [facility] REAL ESTATE APPRAISER NAME POC SHEREEN FLORES 02/26/2020 9:37 AM CDT [facility] Blood, whole 02/26/2020 9:37 AM CDT 02/26/2020 9:53 AM CDT Karen Thomas MD POINT OF CARE TESTIN G Performing Organization Address [facility] Co de Phone Number [facility]# [id number] [address] [place] [address] * PHOSPHORUS (02/26/2020 7:11 AM CDT) [facility] PHOSPHORUS 2.8 2.5 - 4.5 mg/dL 02/26/2020 7:55 AM CDT [facility] Blood Venipuncture / Unknown 02/26/2020 7:11 AM CDT 02/26/2020 7:22 AM CDT Karen Thomas MD CHEMISTRY ORDERABLES Performing Organization Address City/[facility]/ZIP Co de Phone Number [facility]# [id number] [address] [place] [address] * MAGNESIUM LEVEL (02/26/2020 7:11 AM CDT) MAGNESIUM 1.6 1.6 - 2.6 mg/dL 02/26/2020 7:55 AM CDT [facility] Blood Venipuncture / Unknown 02/26/2020 7:11 AM CDT 02/26/2020 7:22 AM CDT Karen Thomas MD CHEMISTRY ORDERABLES [facility] LABORATORY [facility]# [id number] [place] [address] * (ABNORMAL) BASIC METABOLIC PANEL (02/26/2020 7:11 AM CDT) SODIUM 142 136 - 145 mmol/L 02/26/2020 7:55 AM T [employer] LABORATORY [facility] POTASSIUM 3.3(L) 3.5 - 5.0 mmol/L 02/26/2020 7:55 AM T [facility] [employer] [facility] CHLORIDE 106 98 - 107 mmol/L 02/26/2020 7:55 AM T [facility] [employer] [facility] CO2 27 22 - 29 mmol/L 02/26/2020 7:55 AM T [facility] [employer] [facility] CALCIUM 8.6 8.6 - 10.2 mg/dL 02/26/2020 7:55 AM T [facility] LABORATORY [facility] BUN 4(L) 6 - 20 mg/dL 02/26/2020 7:55 AM T [facility] CREATININE 0.52 0.51 - 0.95 mg/dL 02/26/2020 7:55 AM T [facility] GLUCOSE 178(H) 74 - 99 mg/dL 02/26/2020 7:55 AM T [facility] [employer] [facility] GFR >60 >=60 mL/min/1.7 3 sq meter 02/26/2020 7:55 AM T [facility] Comment: eGFR has [...] 3 sq meter 02/26/2020 7:55 AM CDT [facility] ANION GAP 9 8 - 16 mmol/L 02/26/2020 7:55 AM CDT [facility] Blood Venipuncture / Unknown 02/26/2020 7:11 AM CDT 02/26/2020 7:22 AM CDT Karen Thomas MD CHEMISTRY ORDERABLES Performing Organization Address [facility] Co de Phone Number [facility]# [id number] [address] [place] [address] * (ABNORMAL) POC GLUCOSE (02/26/2020 4:01 AM CDT) GLUCOSE POC 160(H) 74 - 99 mg/dL 02/26/2020 4:01 AM CDT [facility] [employer] [facility] REAL ESTATE APPRAISER NAME PETRONA MORAN 02/26/2020 4:01 AM CDT [facility] [employer] [facility] Blood, whole 02/26/2020 4:01 AM CDT 02/26/2020 4:16 AM CDT Karen Thomas MD POINT OF CARE TESTJERONIMO Serrano Performing Organization Address [facility] Co de Phone Number [facility] [employer] [facility]# [id number] [address] [place] [address] * (ABNORMAL) POC GLUCOSE (02/25/2020 11:40 PM CDT) GLUCOSE POC 173(H) 74 - 99 mg/dL 02/25/2020 11:40 PM CDT [facility] REAL ESTATE APPRAISER NAME PETRONA MORAN 02/25/2020 11:40 PM CDT [facility] Blood, whole 02/25/2020 11:4 0 PM CDT 02/25/2020 11:51 PM CDT Karen Thomas MD POINT OF CARE FLY Serrano Performing Organization Address [facility]/ZIP Co de Phone Number [facility] [id number] [address] [place] [address] * (ABNORMAL) POC GLUCOSE (02/25/2020 10:05 PM CDT) GLUCOSE POC 176(H) 74 - 99 mg/dL 02/25/2020 10:05 PM CDT [facility] REAL ESTATE APPRAISER NAME POC GENOVEVA NOLAN 02/25/2020 10:05 PM CDT [facility] Blood, whole 02/25/2020 10:0 5 PM CDT 02/25/2020 10:17 PM CDT Karen Thomas MD POINT OF CARE TESTJERONIMO Maggie Performing Organization Address [facility] Co de Phone Number [facility] CLIA# [id number] [address] [place] [address] * (ABNORMAL) POC GLUCOSE (02/25/2020 6:11 PM CDT) GLUCOSE POC 180(H) 74 - 99 mg/dL 02/25/2020 6:11 PM CDT [facility] COMMENT, GLU POC Notified RN/MD 02/25/2020 6:11 PM CDT [facility] REAL ESTATE APPRAISER NAME POC CATARINO (BRANDEE- LATOSHA)JEFF 02/25/2020 6:11 PM CDT [facility] SERVICES [facility] Blood, whole 02/25/2020 6:11 PM CDT 02/25/2020 6:20 PM CDT Karen Thomas MD POINT OF CARE TESTJERONIMO Maggie Performing Organization Address City/[facility]/ZIP Co de Phone Number [facility] CLIA# [id number] [address] [place] [address] * POC GLUCOSE (02/25/2020 12:29 PM CDT) GLUCOSE POC 97 74 - 99 mg/dL 02/25/2020 12:29 PM CDT [facility] COMMENT, GLU POC Notified RN/MD 02/25/2020 12:29 PM CDT [facility] REAL ESTATE APPRAISER NAME OLLIE TORIBIO (PN- LATOSHA)JEFF 02/25/2020 12:29 PM CDT [facility] Blood, whole 02/25/2020 12:2 9 PM CDT 02/25/2020 1:40 PM CDT Karen Thomas MD POINT OF CARE TESTIN G [facility]# [id number] [address] [facility] [place] [address] [place] [address] * XR FLUORO NG TUBE PLACEMENT SI [...] MINUTES: ??.23. DICTATION LOCATION: Location 1 - [facility] Narrative 02/25/2020 11:22 AM CDT XR FLUORO [...] MINUTES: .23. DICTATION LOCATION: Location 1 - [facility] Karen Thomas MD DIAGNOSTIC IMAGING O RDERABLES * POC GLUCOSE (02/25/2020 9:11 AM CDT) GLUCOSE POC 94 74 - 99 mg/dL 02/25/2020 9:11 AM CDT [facility] COMMENT, GLU POC Notified RN/ 02/25/2020 9:11 AM CDT [facility] REAL ESTATE APPRAISER NAME OLLIE KELLER)JEFF 02/25/2020 9:11 AM CDT [facility] Blood, whole 02/25/2020 9:11 AM CDT 02/25/2020 9:53 AM CDT Karen Tohmas MD POINT OF CARE TESTIN G Performing Organization Address [facility]/State/ZIP Co de Phone Number [facility]# [id number] [address] [place] [address] * XR ABDOMEN FOR FEEDING TUBE 1 [...] previous, lungs incompletely assessed. DICTATION LOCATION: Location [address] [place] [address] Narrative 02/25/2020 8:51 AM CDT EXAMINATION: XR [...] previous, lungs incompletely assessed. DICTATION LOCATION: Location [address] [place] [address] Karen Thomas MD DIAGNOSTIC IMAGING O RDERABLES * (ABNORMAL) TRIGLYCERIDE (02/25/2020 6:35 AM CDT) TRIGLYCERIDE 300(H) <150 mg/dL 02/25/2020 7:45 AM CDT [facility] Blood Venipuncture / Unknown 02/25/2020 6:35 AM CDT 02/25/2020 7:07 AM CDT Narrative [facility] - 02/25/2020 7:45 AM CDT TRIGLYCERIDES ? mg/dL Normal ?< 150 Borderline High ?150 - 199 High ? 200 - 499 Very High ? >= 500 Based on AHA/NCEP Guidelines. Karen Thomas MD CHEMISTRY ORDERABLES Performing Organization Address [facility]/ZIP Co de Phone Number [facility] CLIA# [id number] [address] [place] [address] * PHOSPHORUS (02/25/2020 6:35 AM CDT) Pathologist [facility] PHOSPHORUS 3.1 2.5 - 4.5 mg/dL 02/25/2020 7:45 AM CDT [facility] Blood Venipuncture / Unknown 02/25/2020 6:35 AM CDT 02/25/2020 7:07 AM CDT Karen Thomas MD CHEMISTRY ORDERABLES Performing Organization Address City/[facility]/ZIP Co de Phone Number [facility]# [id number] [address] [place] [address] * MAGNESIUM LEVEL (02/25/2020 6:35 AM CDT) MAGNESIUM 1.7 1.6 - 2.6 mg/dL 02/25/2020 7:45 AM CDT [facility] Blood Venipuncture / Unknown 02/25/2020 6:35 AM CDT 02/25/2020 7:07 AM CDT Karen Thomas MD CHEMISTRY ORDERABLES [facility] SERVICES [facility]# [id number] [address] [place] [address] * (ABNORMAL) BASIC METABOLIC PANEL (02/25/2020 6:35 AM CDT) [facility] SODIUM 140 136 - 145 mmol/L 02/25/2020 7:45 AM T [facility] [facility] LABORATORY [facility] POTASSIUM 3.5 3.5 - 5.0 mmol/L 02/25/2020 7:45 AM T [facility] - . [facility] CHLORIDE 105 98 - 107 mmol/L 02/25/2020 7:45 AM T [facility] CO2 25 22 - 29 mmol/L 02/25/2020 7:45 AM [facility] CALCIUM 8.4(L) 8.6 - 10.2 mg/dL 02/25/2020 7:45 AM T [facility] BUN 6 6 - 20 mg/dL 02/25/2020 7:45 AM [facility] CREATININE 0.53 0.51 - 0.95 mg/dL 02/25/2020 7:45 AM [facility] GLUCOSE 126(H) 74 - 99 mg/dL 02/25/2020 7:45 AM [facility] [employer] [facility] GFR >60 >=60 mL/min/1.7 3 sq meter 02/25/2020 7:45 AM T [facility] LABORATORY [facility] Comment: eGFR has [...] 3 sq meter 02/25/2020 7:45 AM CDT [facility] SERVICES [facility] ANION GAP 10 8 - 16 mmol/L 02/25/2020 7:45 AM CDT [facility] SERVICES [facility] Blood Venipuncture / Unknown 02/25/2020 6:35 AM CDT 02/25/2020 7:07 AM CDT Karen Thomas MD CHEMISTRY ORDERABLES Performing Organization Address [facility] Co de Phone Number [facility] [employer] [facility]# [id number] [address] [place] [address] * (ABNORMAL) POC GLUCOSE (02/25/2020 4:07 AM CDT) GLUCOSE POC 114(H) 74 - 99 mg/dL 02/25/2020 4:07 AM CDT [facility] REAL ESTATE APPRAISER NAME POC ZABRINA MURRYHERINE 02/25/2020 4:07 AM CDT [facility] SERVICES [facility] Blood, whole 02/25/2020 4:07 AM CDT 02/25/2020 4:21 AM CDT Karen Thomas MD POINT OF CARE TESTIN G Performing Organization Address [facility] Co de Phone Number [facility] [employer] [facility]# [id number] [address] [place] [address] * (ABNORMAL) POC GLUCOSE (02/25/2020 12:38 AM CDT) GLUCOSE POC 150(H) 74 - 99 mg/dL 02/25/2020 12:38 AM CDT [facility] REAL ESTATE APPRAISER NAME POC LOVELYZABRINA JERNIGANHERINE 02/25/2020 12:38 AM CDT [facility] [employer] LAB[facility]AT[facility] SERVICES [facility] Blood, whole 02/25/2020 12:3 8 AM CDT 02/25/2020 1:57 AM CDT Karen Thomas MD POINT OF CARE FLY Maggie Performing Organization Address City/[facility]/ZIP Co de Phone Number [facility] [employer] [facility] CLIA# [id number] [address] [place] [address] * (ABNORMAL) POC GLUCOSE (02/24/2020 9:44 PM CDT) GLUCOSE POC 169(H) 74 - 99 mg/dL 02/24/2020 9:44 PM CDT [facility] REAL ESTATE APPRAISER NAME POC LOVELYNASRINMARLEN 02/24/2020 9:44 PM CDT [facility] Blood, whole 02/24/2020 9:44 PM CDT 02/24/2020 9:56 PM CDT Karen Thomas MD POINT OF CARE FLY Maggie Performing Organization Address [facility] Co de Phone Number [facility] [employer] [facility] CLIA# [id number] [address] [place] [address] * (ABNORMAL) POC GLUCOSE (02/24/2020 5:09 PM CDT) GLUCOSE POC 128(H) 74 - 99 mg/dL 02/24/2020 5:09 PM CDT [facility] SERVICES [facility] COMMENT, GLU POC Notified RN/MD 02/24/2020 5:09 PM CDT [facility] SERVICES [facility] REAL ESTATE APPRAISER NAME POC CATARINO (PN- LATOSHA)JEFF 02/24/2020 5:09 PM CDT [facility] Blood, whole 02/24/2020 5:09 PM CDT 02/24/2020 5:20 PM CDT Karen Thomas MD POINT OF CARE FLY Maggie Performing Organization Address [facility]/ZIP Co de Phone Number [facility]# [id number] [address] [place] [address] * (ABNORMAL) CBC WITH DIFFERENTIAL (02/24/2020 2:36 PM CDT) [facility] WBC 7.1 4.0 - 9.8 K/uL 02/24/2020 2:55 PM CDT [facility] RBC 4.39 3.90 - 4.90 M/uL 02/24/2020 2:55 PM CDT [facility] HEMOGLOBIN 12.8 11.8 - 14.8 g/dL 02/24/2020 2:55 PM CDT [facility] HEMATOCRIT 39.3 35.5 - 44.0 % 02/24/2020 2:55 PM CDT [facility] MCV 89.5 82.0 - 99.0 fL 02/24/2020 2:55 PM CDT [facility] MCH 29.2 27.2 - 32.6 pg 02/24/2020 2:55 PM CDT [facility] MCHC 32.6 31.5 - 35.5 g/dL 02/24/2020 2:55 PM CDT [facility] RDW 14.8(H) 11.5 - 14.5 % 02/24/2020 2:55 PM CDT [facility] RDW-STDEV 48.9(H) 37.1 - 48.7 fL 02/24/2020 2:55 PM CDT [facility] LAB[facility]ORY SERVICES - [facility] PLATELETS 365(H) 140 - 350 K/uL 02/24/2020 2:55 PM CDT [facility] MPV 8.7(L) 9.3 - 12.4 fL 02/24/2020 2:55 PM CDT [facility] - [facility] NEUTROPHILS 58 % 02/24/2020 2:55 PM CDT [facility] LYMPHOCYTES 33 % 02/24/2020 2:55 PM CDT [facility] - . [facility] MONOCYTES 6 % 02/24/2020 2:55 PM CDT [facility] - . [facility] EOSINOPHILS 1 % 02/24/2020 2:55 PM CDT [facility] BASOPHILS 0 % 02/24/2020 2:55 PM CDT [facility] SERVICES - [facility] IMMATURE GRANULOCYTES 2 % 02/24/2020 2:55 PM CDT [facility] - [facility] Comment:IG (Immature Granulo cyte) count includes Metamyelocytes, Myelocytes, and Promyelocytes NEUTROPHIL ABSOLUTE 4.11 1.90 - 7.00 K/uL 02/24/2020 2:55 PM CDT [facility] SERVICES - [facility] LYMPHOCYTE ABSOLUTE 2.33 0.70 - 4.50 K/uL 02/24/2020 2:55 PM CDT [facility] SERVICES - [facility] MONOCYTE ABSOLUTE 0.44 0.10 - 1.30 K/uL 02/24/2020 2:55 PM CDT [facility]ORY SERVICES - . [facility] EOSINOPHIL ABSOLUTE 0.08 0.00 - 0.70 K/uL 02/24/2020 2:55 PM CDT [facility] SERVICES - [facility] BASOPHILS ABSOLUTE 0.03 0.00 - 0.20 K/uL 02/24/2020 2:55 PM CDT [facility]ORY SERVICES - [facility] IMMATURE GRANULOCYTES ABSOLUTE 0.11(H) 0.00 - 0.03 K/uL 02/24/2020 2:55 PM CDT [facility]ORY [facility] Blood Venipuncture / Unknown 02/24/2020 2:36 PM CDT 02/24/2020 2:42 PM CDT Karen Thomas MD HEMATOLOGY ORDERABLE S [facility]# [id number] [address] [facility] [address] * POC GLUCOSE (02/24/2020 12:57 PM CDT) GLUCOSE POC 83 74 - 99 mg/dL 02/24/2020 12:57 PM CDT [facility] COMMENT, GLU POC Notified RN/ 02/24/2020 12:57 PM CDT [facility] LABOR[facility]ORY SERVICES [facility] REAL ESTATE APPRAISER NAME POC JEFF TORIBIO (PN- WATKINS) 02/24/2020 12:57 PM CDT [facility] Blood, whole 02/24/2020 12:5 7 PM CDT 02/24/2020 1:05 PM CDT Karen Thomas MD POINT OF CARE FLY Serrano [facility] LABOR[facility]ORY SERVICES [facility] CLIA# [id number] [address] [place] [address] * XR FLUORO NG TUBE PLACEMENT SI (02/24/2020 11:33 AM CDT) Anatomical Region Laterality Modality Abdomen Computed Radiogr aphy 02/24/2020 11:3 3 AM CDT Impressions 02/24/2020 12:19 PM CDT IMPRESSION: The Corpak feeding tube was advanced to the level of the duodenal jejunal junction. FLUOROSCOPY TIME IN MINUTES: ??.6. DICTATION LOCATION: Location 1 - [facility] Narrative 02/24/2020 12:19 PM CDT XR FLUORO [...] IN MINUTES: .6. DICTATION LOCATION: Location - [facility] Richard Mead MD DIAGNOSTIC IMAGING ORDERABLES * [...] the gastric body. DICTATION LOCATION: ??Location - [facility] Procedure Note Michael Beebe MD - 02/24/2020 EXAM: PORTABLE ABDOMEN FOR TUBE PLACEMENT 02-24-2020 AT 0921 HOURS FINDINGS: Corpak feeding tube extends through the esophagus and into the stomach. Its distal tip ends in the gastric body. DICTATION LOCATION: Location - [facility] Karen Thomas MD DIAGNOSTIC IMAGING O RDERABLES * POC GLUCOSE (02/24/2020 9:28 AM CDT) GLUCOSE POC 93 74 - 99 mg/dL 02/24/2020 9:28 AM CDT [facility] COMMENT, GLU POC Notified RN/ 02/24/2020 9:28 AM CDT [facility] LABOR[facility] SERVICES [facility] REAL ESTATE APPRAISER NAME JEFF BARNETT (PN- WATKINS) 02/24/2020 9:28 AM CDT [facility] [employer] [facility] Blood, whole 02/24/2020 9:28 AM CDT 02/24/2020 12:43 PM CDT Karen Thomas MD POINT OF CARE TESTIN G Performing Organization Address [facility] Co de Phone Number [facility] CLIA# [id number] [address] [place] [address] * (ABNORMAL) TRIGLYCERIDE (02/24/2020 7:58 AM CDT) TRIGLYCERIDE 356(H) <150 mg/dL 02/24/2020 8:56 AM CDT [facility] Blood Venipuncture / Unknown 02/24/2020 7:58 AM CDT 02/24/2020 8:27 AM CDT Narrative [facility] [employer] [facility] - 02/24/2020 8:56 AM CDT TRIGLYCERIDES ? mg/dL Normal ?< 150 Borderline High ?150 - 199 High ? 200 - 499 Very High ? >= 500 Based on AHA/NCEP Guidelines. Rcihard Mead MD CHEMISTRY ORDERABL ES Performing Organization Address [facility] Co de Phone Number [facility] [employer] [facility] CLIA# [id number] [address] [place] [address] * PHOSPHORUS (02/24/2020 7:58 AM CDT) PHOSPHORUS 3.5 2.5 - 4.5 mg/dL 02/24/2020 8:56 AM CDT [facility] [employer] [facility] Blood Venipuncture / Unknown 02/24/2020 7:58 AM CDT 02/24/2020 8:27 AM CDT Richard Mead MD CHEMISTRY ORDERABL ES Performing Organization Address City/[facility]/ZIP Co de Phone Number [facility] [employer] SERVICES [facility]# [id number] [address] [place] [address] * MAGNESIUM LEVEL (02/24/2020 7:58 AM CDT) MAGNESIUM 1.8 1.6 - 2.6 mg/dL 02/24/2020 8:56 AM CDT [employer] LABORATORY SERVICES [facility] Blood Venipuncture / Unknown 02/24/2020 7:58 AM CDT 02/24/2020 8:27 AM CDT Richard Mead MD CHEMISTRY ORDERABL ES Performing Organization Address [facility]/ZIP Co de Phone Number [employer] SERVICES [facility] CLIA# [id number] [address] [place] [address] * (ABNORMAL) BASIC METABOLIC PANEL (02/24/2020 7:58 AM CDT) SODIUM 138 136 - 145 mmol/L 02/24/2020 8:56 AM CDT [employer] LABORATORY SERVICES - [facility] POTASSIUM 3.6 3.5 - 5.0 mmol/L 02/24/2020 8:56 AM CDT [employer] LABORATORY SERVICES - [facility] CHLORIDE 104 98 - 107 mmol/L 02/24/2020 8:56 AM CDT [employer] LABORATORY SERVICES - . [facility] CO2 27 22 - 29 mmol/L 02/24/2020 8:56 AM CDT [employer] LABORATORY SERVICES - . [facility] CALCIUM 8.9 8.6 - 10.2 mg/dL 02/24/2020 8:56 AM CDT [facility] LABORATORY SERVICES - . [facility] BUN 10 6 - 20 mg/dL 02/24/2020 8:56 AM CDT [employer] LABORATORY SERVICES - . [facility] CREATININE 0.62 0.51 - 0.95 mg/dL 02/24/2020 8:56 AM CDT [employer] LABORATORY SERVICES - . [facility] GLUCOSE 143(H) 74 - 99 mg/dL 02/24/2020 8:56 AM CDT [employer] LABORATORY SERVICES - . [facility] GFR >60 >=60 mL/min/1.7 3 sq meter 02/24/2020 8:56 AM CDT [facility] [employer] [facility] Comment: eGFR has [...] 3 sq meter 02/24/2020 8:56 AM CDT [facility] [employer] [facility] ANION GAP 7(L) 8 - 16 mmol/L 02/24/2020 8:56 AM CDT [facility] [employer] [facility] Blood Venipuncture / Unknown 02/24/2020 7:58 AM CDT 02/24/2020 8:27 AM CDT Richard Mead MD CHEMISTRY ORDERABL ES Performing Organization Address City/State/[facility] Co de Phone Number [facility] [employer] [facility]# [id number] [address] [facility] [place] [place] [address] * (ABNORMAL) POC GLUCOSE (02/24/2020 4:20 AM CDT) GLUCOSE POC 116(H) 74 - 99 mg/dL 02/24/2020 4:20 AM CDT [facility] [employer] [facility] COMMENT, GLU POC Notified RN/MD 02/24/2020 4:20 AM CDT [facility] [employer] [facility] REAL ESTATE APPRAISER NAME POC RADHA DELACRUZ 02/24/2020 4:20 AM CDT [facility] [employer] [facility] Blood, whole 02/24/2020 4:20 AM CDT 02/24/2020 8:28 AM CDT Karen Thomas MD POINT OF CARE TESTIN G [facility] [employer] [facility] CLIA# [id number] [address] [place] [address] * (ABNORMAL) POC GLUCOSE (02/23/2020 11:58 PM CDT) GLUCOSE POC 111(H) 74 - 99 mg/dL 02/23/2020 11:58 PM CDT [facility] LABORATORY SERVICES [facility] COMMENT, GLU POC Notified RN/MD 02/23/2020 11:58 PM CDT [facility] LABORATORY SERVICES [facility] REAL ESTATE APPRAISER NAME POC RADHA DELACRUZ 02/23/2020 11:58 PM CDT [facility] Blood, whole 02/23/2020 11:5 8 PM CDT 02/24/2020 12:36 AM CDT Karen Thomas MD POINT OF CARE FLY Maggie Performing Organization Address [facility]/ZIP Co de Phone Number [facility] [employer] [facility] CLIA# [id number] [address] [place] [address] * POC GLUCOSE (02/23/2020 8:07 PM CDT) GLUCOSE POC 85 74 - 99 mg/dL 02/23/2020 8:07 PM CDT [facility] REAL ESTATE APPRAISER NAME POC ROLANDO HERNANDEZ 02/23/2020 8:07 PM CDT [facility] Blood, whole 02/23/2020 8:07 PM CDT 02/23/2020 8:21 PM CDT Karen Thomas MD POINT OF CARE VINICIUSJERONIMO Maggie [facility] [employer] [facility] CLIA# [id number] [address] [place] [address] * XR ABDOMEN FOR FEEDING TUBE 1 VW (02/23/2020 6:30 PM CDT) Anatomical Region Laterality Modality Abdomen Computed Radiogr aphy 02/23/2020 6:31 PM CDT Impressions 02/23/2020 9:07 PM CDT IMPRESSION: Feeding tube in the distal stomach. DICTATION LOCATION: Location 1 - [facility] Narrative 02/23/2020 9:07 PM CDT XR ABDOMEN [...] in the distal stomach. DICTATION LOCATION: Location [address] [place] [address] Karen Thomas MD DIAGNOSTIC IMAGING O RDERABLES * (ABNORMAL) POC GLUCOSE (02/23/2020 4:45 PM CDT) GLUCOSE POC 106(H) 74 - 99 mg/dL 02/23/2020 4:45 PM CDT [facility] REAL ESTATE APPRAISER NAME POC ABHAY GRIFFITHS 02/23/2020 4:45 PM CDT [facility] Blood, whole 02/23/2020 4:45 PM CDT 02/23/2020 5:13 PM CDT Karen Thomas MD POINT OF CARE TESTIN G [facility] CLIA# [id number] [address] [place] [address] * POC GLUCOSE (02/23/2020 12:34 PM CDT) GLUCOSE POC 95 74 - 99 mg/dL 02/23/2020 12:34 PM CDT [facility] LABORATORY [facility] REAL ESTATE APPRAISER NAME POC JEFF BLOOD 02/23/2020 12:34 PM CDT [facility] [employer] [facility] Blood, whole 02/23/2020 12:3 4 PM CDT 02/23/2020 12:44 PM CDT Karen Thomas MD POINT OF CARE TESTJERONIMO Maggie Performing Organization Address [facility]/ZIP Co de Phone Number [facility] [employer] [facility] CLIA# [id number] [address] [place] [address] * POC GLUCOSE (02/23/2020 9:38 AM CDT) GLUCOSE POC 96 74 - 99 mg/dL 02/23/2020 9:38 AM CDT [facility] [employer] LAB[facility]ORY [facility] COMMENT, GLU POC Notified RN/MD 02/23/2020 9:38 AM CDT [employer] LABORATORY [facility] REAL ESTATE APPRAISER NAME POC JESUS ALBERTO PADILLA 02/23/2020 9:38 AM CDT [facility] [employer] [facility] Blood, whole 02/23/2020 9:38 AM CDT 02/23/2020 10:28 AM CDT Karen Thomas MD POINT OF CARE FLY Maggie Performing Organization Address [facility] Co de Phone Number [facility] [employer] [facility] CLIA# [id number] [address] [place] [address] * (ABNORMAL) TRIGLYCERIDE (02/23/2020 6:45 AM CDT) TRIGLYCERIDE 318(H) <150 mg/dL 02/23/2020 7:35 AM CDT [facility] [employer] [facility] Blood Venipuncture / Unknown 02/23/2020 6:45 AM CDT 02/23/2020 6:54 AM CDT Narrative [facility] [employer] LAB[facility] - 02/23/2020 7:35 AM CDT TRIGLYCERIDES ? mg/dL Normal ?< 150 Borderline High ?150 - 199 High ? 200 - 499 Very High ? >= 500 Based on AHA/NCEP Guidelines. Richard Mead MD CHEMISTRY ORDERABL ES Performing Organization Address [facility] Co de Phone Number [facility]# [id number] [address] [place] [address] * PHOSPHORUS (02/23/2020 6:45 AM CDT) PHOSPHORUS 3.7 2.5 - 4.5 mg/dL 02/23/2020 7:35 AM CDT [facility] [employer] [facility] Blood Venipuncture / Unknown 02/23/2020 6:45 AM CDT 02/23/2020 6:54 AM CDT Richard Mead MD CHEMISTRY ORDERABL ES Performing Organization Address [facility] Phone Number [facility] [employer] [facility]# [id number] [address] [place] [address] * MAGNESIUM LEVEL (02/23/2020 6:45 AM CDT) MAGNESIUM 1.7 1.6 - 2.6 mg/dL 02/23/2020 7:35 AM CDT [facility] [employer] [facility] Blood Venipuncture / Unknown 02/23/2020 6:45 AM CDT 02/23/2020 6:54 AM CDT Richard Mead MD CHEMISTRY ORDERABL ES Performing Organization Address [facility] de Phone Number [facility] [employer] [facility]# [id number] [address] [place] [address] * (ABNORMAL) BASIC METABOLIC PANEL (02/23/2020 6:45 AM CDT) SODIUM 140 136 - 145 mmol/L 02/23/2020 7:35 AM T [employer] LABORATORY SERVICES [facility] POTASSIUM 3.4(L) 3.5 - 5.0 mmol/L 02/23/2020 7:35 AM T [employer] LABORATORY SERVICES [facility] CHLORIDE 103 98 - 107 mmol/L 02/23/2020 7:35 AM T [employer] SERVICES [facility] CO2 26 22 - 29 mmol/L 02/23/2020 7:35 AM T [employer] SERVICES [facility] CALCIUM 8.5(L) 8.6 - 10.2 mg/dL 02/23/2020 7:35 AM T [employer] SERVICES [facility] BUN 6 6 - 20 mg/dL 02/23/2020 7:35 AM T [employer] SERVICES [facility] CREATININE 0.67 0.51 - 0.95 mg/dL 02/23/2020 7:35 AM T [employer] SERVICES [facility] GLUCOSE 116(H) 74 - 99 mg/dL 02/23/2020 7:35 AM T [employer] SERVICES [facility] GFR >60 >=60 mL/min/1.7 3 sq meter 02/23/2020 7:35 AM T [employer] SERVICES [facility] Comment: eGFR has not been validated for [...] 3 sq meter 02/23/2020 7:35 AM T [employer] LABORATORY SERVICES [facility] ANION GAP 11 8 - 16 mmol/L 02/23/2020 7:35 AM T [employer] [facility] Blood Venipuncture / Unknown 02/23/2020 6:45 AM CDT 02/23/2020 6:54 AM CDT Richard Mead MD CHEMISTRY ORDERABL ES Performing Organization Address [facility]/ZIP Co de Phone Number [facility]# [id number] [address] [place] [address] * (ABNORMAL) POC GLUCOSE (02/23/2020 4:05 AM CDT) GLUCOSE POC 119(H) 74 - 99 mg/dL 02/23/2020 4:05 AM CDT [facility] LABORATORY [facility] REAL ESTATE APPRAISER NAME POC CONNIE BOWLES 02/23/2020 4:05 AM CDT [facility] LABORATORY [facility] Blood, whole 02/23/2020 4:05 AM CDT 02/23/2020 5:03 AM CDT Richard Mead MD POINT OF CARE TEST ING Performing Organization Address [facility] Co de Phone Number [facility] CLNV# [id number] [address] [place] [address] * (ABNORMAL) POC GLUCOSE (02/22/2020 10:49 PM CDT) GLUCOSE POC 149(H) 74 - 99 mg/dL 02/22/2020 10:49 PM CDT [facility] LABOR[facility]ORY [facility] REAL ESTATE APPRAISER NAME POC SYLVIE CARROLL 02/22/2020 10:49 PM CDT [facility] LABORATORY [facility] Blood, whole 02/22/2020 10:4 9 PM CDT 02/22/2020 11:10 PM CDT Richard Mead MD POINT OF CARE TEST ING Performing Organization Address [facility] Co de Phone Number [facility] CLIA# [id number] [address] [place] [address] * (ABNORMAL) POC GLUCOSE (02/22/2020 5:44 PM CDT) GLUCOSE POC 122(H) 74 - 99 mg/dL 02/22/2020 5:44 PM CDT [facility] LABORATORY [facility] REAL ESTATE APPRAISER NAME AMENA FIORE 02/22/2020 5:44 PM CDT [facility] LABORATORY [facility] Blood, whole 02/22/2020 5:44 PM CDT 02/22/2020 5:52 PM CDT Richard Mead MD POINT OF CARE TEST ING Performing Organization Address [facility]/ZIP Co de Phone Number [facility] CLIA# [id number] [address] [place] [address] * (ABNORMAL) POC GLUCOSE (02/22/2020 1:50 PM CDT) GLUCOSE POC 113(H) 74 - 99 mg/dL 02/22/2020 1:50 PM CDT [facility] LAB[facility]ORY [facility] REAL ESTATE APPRAISER NAME AMENA FIORE 02/22/2020 1:50 PM CDT [facility] LABOR[facility]ORY [facility] Blood, whole 02/22/2020 1:50 PM CDT 02/22/2020 1:59 PM CDT Richard Mead MD POINT OF CARE TEST ING Performing Organization Address [facility]/ZIP Co de Phone Number [facility] [employer] [facility] CLIA# [id number] [address] [place] [address] * POC GLUCOSE (02/22/2020 8:58 AM CDT) GLUCOSE POC 92 74 - 99 mg/dL 02/22/2020 8:58 AM CDT [facility] LABORATORY [facility] REAL ESTATE APPRAISER NAME AMENA FIORE 02/22/2020 8:58 AM CDT [facility] LABORATORY [facility] Blood, whole 02/22/2020 8:58 AM CDT 02/22/2020 9:15 AM CDT Richard Mead MD POINT OF CARE TEST ING Performing Organization Address [facility]/ZIP Co de Phone Number [facility] [employer] [facility] CLIA# [id number] [address] [place] [address] * (ABNORMAL) POC GLUCOSE (02/21/2020 11:07 PM CDT) GLUCOSE POC 165(H) 74 - 99 mg/dL 02/21/2020 11:07 PM CDT [facility] LABORATORY SERVICES [facility] COMMENT, GLU POC Notified RN/MD 02/21/2020 11:07 PM CDT [facility] LABORATORY [facility] REAL ESTATE APPRAISER NAME POC CONNIE BOWLES 02/21/2020 11:07 PM CDT [facility] LABORATORY [facility] Blood, whole 02/21/2020 11:0 7 PM CDT 02/21/2020 11:14 PM CDT Richard Mead MD POINT OF CARE TEST ING Performing Organization Address [facility]/ZIP Co de Phone Number [facility] [employer] [facility] CLIA# [id number] [address] [place] [address] * POC GLUCOSE (02/21/2020 6:49 PM CDT) GLUCOSE POC 79 74 - 99 mg/dL 02/21/2020 6:49 PM CDT [facility] LABORATORY [facility] REAL ESTATE APPRAISER NAME POC AMENA CARLISLE 02/21/2020 6:49 PM CDT [facility] LABORATORY [facility] Blood, whole 02/21/2020 6:49 PM CDT 02/21/2020 6:58 PM CDT Richard Mead MD POINT OF CARE TEST ING Performing Organization Address [facility]/ZIP Co de Phone Number [facility] [employer] [facility] CLIA# [id number] [address] [place] [address] * (ABNORMAL) POC GLUCOSE (02/21/2020 1:51 PM CDT) GLUCOSE POC 147(H) 74 - 99 mg/dL 02/21/2020 1:51 PM CDT [employer] LABORATORY [facility] REAL ESTATE APPRAISER NAME AMENA FIORE 02/21/2020 1:51 PM CDT [facility] [employer] LABORATORY SERVICES [facility] Blood, whole 02/21/2020 1:51 PM CDT 02/21/2020 3:59 PM CDT Richard eMad MD POINT OF CARE TEST ING Performing Organization Address [facility]/ZIP Co de Phone Number [facility] [employer] [facility] CLIA# [id number] [address] [place] [address] * (ABNORMAL) POC GLUCOSE (02/21/2020 8:49 AM CDT) GLUCOSE POC 101(H) 74 - 99 mg/dL 02/21/2020 8:49 AM CDT [employer] LABORATORY [facility] REAL ESTATE APPRAISER NAME AMENA FIORE 02/21/2020 8:49 AM CDT [employer] LABORATORY SERVICES [facility] Blood, whole 02/21/2020 8:49 AM CDT 02/21/2020 8:59 AM CDT Richard Mead MD POINT OF CARE TEST ING Performing Organization Address [facility]/ZIP Co de Phone Number [facility] [employer] [facility] CLIA# [id number] [address] [place] [address] * (ABNORMAL) BASIC METABOLIC PANEL (02/21/2020 7:56 AM CDT) SODIUM 141 136 - 145 mmol/L 02/21/2020 8:35 AM CDT [employer] LABORATORY SERVICES [facility] POTASSIUM 3.8 3.5 - 5.0 mmol/L 02/21/2020 8:35 AM CDT [employer] LABORATORY SERVICES [facility] CHLORIDE 106 98 - 107 mmol/L 02/21/2020 8:35 AM CDT [employer] LABORATORY SERVICES [facility] CO2 23 22 - 29 mmol/L 02/21/2020 8:35 AM CDT [facility] CALCIUM 8.5(L) 8.6 - 10.2 mg/dL 02/21/2020 8:35 AM CDT [facility] BUN 5(L) 6 - 20 mg/dL 02/21/2020 8:35 AM CDT [facility] CREATININE 0.46(L) 0.51 - 0.95 mg/dL 02/21/2020 8:35 AM CDT [facility] GLUCOSE 124(H) 74 - 99 mg/dL 02/21/2020 8:35 AM CDT [facility] GFR >60 >=60 mL/min/1.7 3 sq meter 02/21/2020 8:35 AM CDT [facility] Comment: eGFR has not [...] 3 sq meter 02/21/2020 8:35 AM CDT [facility] ANION GAP 12 8 - 16 mmol/L 02/21/2020 8:35 AM T [facility] Blood Venipuncture / Unknown 02/21/2020 7:56 AM CDT 02/21/2020 8:03 AM CDT Richard Mead MD CHEMISTRY ORDERABL ES [facility]# [id number] [address] [facility] [place] [address] * (ABNORMAL) TRIGLYCERIDE (02/21/2020 7:56 AM CDT) TRIGLYCERIDE 319(H) <150 mg/dL 02/21/2020 8:35 AM CDT [facility] LABORATORY [facility] Blood Venipuncture / Unknown 02/21/2020 7:56 AM CDT 02/21/2020 8:03 AM CDT Narrative [facility] LABORATORY [facility] - 02/21/2020 8:35 AM CDT TRIGLYCERIDES ? mg/dL Normal ?< 150 Borderline High ?150 - 199 High ? 200 - 499 Very High ? >= 500 Based on AHA/NCEP Guidelines. Richard Mead MD CHEMISTRY ORDERABL ES Performing Organization Address [facility] Co de Phone Number [facility]# [id number] [address] [place] [address] * (ABNORMAL) POC GLUCOSE (02/21/2020 12:27 AM CDT) GLUCOSE POC 177(H) 74 - 99 mg/dL 02/21/2020 12:27 AM CDT [facility] REAL ESTATE APPRAISER NAME POC GLENSYLVIE 02/21/2020 12:27 AM CDT [facility] Blood, whole 02/21/2020 12:2 7 AM CDT 02/21/2020 4:21 AM CDT Richard Mead MD POINT OF CARE TEST ING Performing Organization Address [facility]/ZIP Co de Phone Number [facility]# [id number] [address] [place] [address] * POC GLUCOSE (02/20/2020 8:29 PM CDT) GLUCOSE POC 89 74 - 99 mg/dL 02/20/2020 8:29 PM CDT [facility] REAL ESTATE APPRAISER NAME POC SYLVIE CARROLL 02/20/2020 8:29 PM CDT [facility] LABORATORY SERVICES [facility] Blood, whole 02/20/2020 8:29 PM CDT 02/20/2020 9:01 PM CDT Richard Mead MD POINT OF CARE TEST ING [facility] [employer] [facility] CLIA# [id number] [address] [place] [address] * POC GLUCOSE (02/20/2020 7:04 PM CDT) GLUCOSE POC 82 74 - 99 mg/dL 02/20/2020 7:04 PM CDT [facility] LABORATORY [facility] REAL ESTATE APPRAISER NAME POC ABHAY GRIFFITHS 02/20/2020 7:04 PM CDT [facility] LABORATORY [facility] Blood, whole 02/20/2020 7:04 PM CDT 02/20/2020 8:55 PM CDT Richard Mead MD POINT OF CARE TEST ING Performing Organization Address City/[facility]/ZIP Co de Phone Number [facility] [employer] [facility] CLIA# [id number] [address] [place] [address] * (ABNORMAL) POC GLUCOSE (02/20/2020 6:45 PM CDT) GLUCOSE POC 65(L) 74 - 99 mg/dL 02/20/2020 6:45 PM CDT [facility] LABORATORY SERVICES [facility] COMMENT, GLU POC Notified RN/MD 02/20/2020 6:45 PM CDT [facility] [employer] [facility] REAL ESTATE APPRAISER NAME POC RADHA DELACRUZ 02/20/2020 6:45 PM CDT [facility] [employer] LABORATORY SERVICES [facility] Blood, whole 02/20/2020 6:45 PM CDT 02/20/2020 6:53 PM CDT Richard Mead MD POINT OF CARE TEST ING [facility] [employer] [facility]# [id number] [address] [place] [address] * (ABNORMAL) POC GLUCOSE (02/20/2020 6:29 PM CDT) GLUCOSE POC 51(L) 74 - 99 mg/dL 02/20/2020 6:29 PM CDT [facility] LABORATORY [facility] REAL ESTATE APPRAISER NAME POC ABHAY GRIFFITHS 02/20/2020 6:29 PM CDT [facility] LABORATORY [facility] Blood, whole 02/20/2020 6:29 PM CDT 02/20/2020 8:55 PM CDT Richard Mead MD POINT OF CARE TEST ING Performing Organization Address [facility]/ZIP Co de Phone Number [facility] [employer] [facility] CLNV# [id number] [address] [place] [address] * POC GLUCOSE (02/20/2020 12:41 PM CDT) GLUCOSE POC 80 74 - 99 mg/dL 02/20/2020 12:41 PM CDT [facility] LABORATORY [facility] REAL ESTATE APPRAISER NAME POC ISHMAEL AUGUSTIN 02/20/2020 12:41 PM CDT [facility] LABORATORY [facility] Blood, whole 02/20/2020 12:4 1 PM CDT 02/20/2020 1:22 PM CDT Richard Mead MD POINT OF CARE TEST ING Performing Organization Address City/[facility]/ZIP Co de Phone Number [facility] [employer] [facility]# [id number] [address] [place] [address] * POC GLUCOSE (02/20/2020 9:50 AM CDT) GLUCOSE POC 94 74 - 99 mg/dL 02/20/2020 9:50 AM CDT [facility] LABORATORY [facility] REAL ESTATE APPRAISER NAME POC GENOVEVA LEONG (pn-SANDEFER ) 02/20/2020 9:50 AM CDT [employer] [facility] Blood, whole 02/20/2020 9:50 AM CDT 02/20/2020 10:03 AM CDT Richard Mead MD POINT OF CARE TEST ING [facility] [employer] [facility]# [id number] [address] [facility] [place] [address] * (ABNORMAL) BASIC METABOLIC PANEL (02/20/2020 6:43 AM CDT) SODIUM 140 136 - 145 mmol/L 02/20/2020 8:05 AM [facility] [employer] [facility] POTASSIUM 3.3(L) 3.5 - 5.0 mmol/L 02/20/2020 8:05 AM [facility] [employer] [facility] CHLORIDE 107 98 - 107 mmol/L 02/20/2020 8:05 AM [facility] [employer] [facility] CO2 25 22 - 29 mmol/L 02/20/2020 8:05 AM [facility] [employer] [facility] CALCIUM 8.3(L) 8.6 - 10.2 mg/dL 02/20/2020 8:05 AM [facility] [employer] [facility]. [facility] BUN 3(L) 6 - 20 mg/dL 02/20/2020 8:05 AM [facility] [employer] [facility] CREATININE 0.53 0.51 - 0.95 mg/dL 02/20/2020 8:05 AM [facility] [employer] [facility] GLUCOSE 133(H) 74 - 99 mg/dL 02/20/2020 8:05 AM [facility] [employer] [facility] GFR >60 >=60 mL/min/1.7 3 sq meter 02/20/2020 8:05 AM [facility] [employer] SERVICES [facility] Comment: eGFR has not been validated for [...] 3 sq meter 02/20/2020 8:05 AM CDT [facility] LABORATORY [facility] ANION GAP 8 8 - 16 mmol/L 02/20/2020 8:05 AM CDT [facility] [employer] [facility] Blood Venipuncture / Unknown 02/20/2020 6:43 AM CDT 02/20/2020 7:11 AM CDT Richard Mead MD CHEMISTRY ORDERABL ES Performing Organization Address [facility] de Phone Number [facility] [employer] [facility]# [id number] [address] [place] [address] * (ABNORMAL) TRIGLYCERIDE (02/20/2020 6:43 AM CDT) TRIGLYCERIDE 341(H) <150 mg/dL 02/20/2020 8:05 AM CDT [facility] Blood Venipuncture / Unknown 02/20/2020 6:43 AM CDT 02/20/2020 7:11 AM CDT Narrative [facility] LABORATORY [facility] - 02/20/2020 8:05 AM CDT TRIGLYCERIDES ? mg/dL Normal ?< 150 Borderline High ?150 - 199 High ? 200 - 499 Very High ? >= 500 Based on AHA/NCEP Guidelines. Richard Mead MD CHEMISTRY ORDERABL ES Performing Organization Address [facility] Co de Phone Number [facility] [employer] [facility]# [id number] [address] [place] [address] * (ABNORMAL) POC GLUCOSE (02/19/2020 8:00 PM CDT) GLUCOSE POC 100(H) 74 - 99 mg/dL 02/19/2020 8:00 PM CDT [facility] LABORATORY SERVICES - [facility] REAL ESTATE APPRAISER NAME POC ANTWON SILVER 02/19/2020 8:00 PM CDT [facility] [employer] LABORATORY SERVICES - [facility] Blood, whole 02/19/2020 8:00 PM CDT 02/19/2020 8:16 PM CDT Richard Mead MD POINT OF CARE TEST ING [facility] LABORATORY [facility] CLIA# [id number] [address] [place] [address] * (ABNORMAL) POC GLUCOSE (02/19/2020 6:05 PM CDT) GLUCOSE POC 103(H) 74 - 99 mg/dL 02/19/2020 6:05 PM CDT [facility] LABORATORY SERVICES [facility] REAL ESTATE APPRAISER NAME POC YAMIL BEJARANO 02/19/2020 6:05 PM CDT [facility] LABORATORY SERVICES [facility] Blood, whole 02/19/2020 6:05 PM CDT 02/19/2020 6:14 PM CDT Richard Mead MD POINT OF CARE TEST ING [facility] LABORATORY [facility] CLIA# [id number] [address] [place] [address] * (ABNORMAL) POC GLUCOSE (02/19/2020 2:15 PM CDT) GLUCOSE POC 121(H) 74 - 99 mg/dL 02/19/2020 2:15 PM CDT [facility] [employer] LABORATORY SERVICES [facility] COMMENT, GLU POC Notified RN/MD 02/19/2020 2:15 PM CDT [facility] [employer] LABORATORY SERVICES [facility] REAL ESTATE APPRAISER NAME POC LA, CONNIE 02/19/2020 2:15 PM CDT [employer] LABORATORY SERVICES - [facility] Blood, whole 02/19/2020 2:15 PM CDT 02/19/2020 2:25 PM CDT Richard Mead MD POINT OF CARE TEST ING Performing Organization Address [facility]/State/ZIP Co de Phone Number [facility] [employer] [facility] CLIA# [id number] [address] [place] [address] * (ABNORMAL) POC GLUCOSE (02/19/2020 10:11 AM CDT) GLUCOSE POC 112(H) 74 - 99 mg/dL 02/19/2020 10:11 AM CDT [employer] LABORATORY SERVICES [facility] REAL ESTATE APPRAISER NAME POC YAMIL BEJARANO 02/19/2020 10:11 AM CDT [employer] LABORATORY SERVICES - [facility] Blood, whole 02/19/2020 10:1 1 AM CDT 02/19/2020 10:23 AM CDT Richard Mead MD POINT OF CARE TEST ING Performing Organization Address City/[facility]/ZIP Co de Phone Number [facility] [employer] [facility] CLIA# [id number] [address] [place] [address] * (ABNORMAL) BASIC METABOLIC PANEL (02/19/2020 8:14 AM CDT) SODIUM 141 136 - 145 mmol/L 02/19/2020 9:12 AM CDT [employer] [facility] POTASSIUM 3.9 3.5 - 5.0 mmol/L 02/19/2020 9:12 AM CDT [employer] [facility] CHLORIDE 113(H) 98 - 107 mmol/L 02/19/2020 9:12 AM CDT [employer] [facility] CO2 20(L) 22 - 29 mmol/L 02/19/2020 9:12 AM CDT [employer] [facility] CALCIUM 7.3(L) 8.6 - 10.2 mg/dL 02/19/2020 9:12 AM CDT [employer] [facility] BUN 2(L) 6 - 20 mg/dL 02/19/2020 9:12 AM [facility] CREATININE 0.46(L) 0.51 - 0.95 mg/dL 02/19/2020 9:12 AM [facility] GLUCOSE 119(H) 74 - 99 mg/dL 02/19/2020 9:12 AM T [facility] GFR >60 >=60 mL/min/1.7 3 sq meter 02/19/2020 9:12 AM T [facility] Comment: eGFR has [...] 3 sq meter 02/19/2020 9:12 AM T [facility] ANION GAP 8 8 - 16 mmol/L 02/19/2020 9:12 AM [facility] Blood Venipuncture / Unknown 02/19/2020 8:14 AM CDT 02/19/2020 8:18 AM CDT Richard Mead MD CHEMISTRY ORDERABL ES [facility] [employer] [facility]# [id number] [employer] [place] [place] [address] [address] * (ABNORMAL) POC GLUCOSE (02/19/2020 6:54 AM CDT) GLUCOSE POC 103(H) 74 - 99 mg/dL 02/19/2020 6:54 AM CDT [facility] REAL ESTATE APPRAISER NAME POC RONEY MORELAND 02/19/2020 6:54 AM CDT [facility] [employer] [facility] Blood, whole 02/19/2020 6:54 AM CDT 02/19/2020 7:02 AM CDT Richard Mead MD POINT OF CARE TEST ING [facility] CLIA# [id number] [address] [place] [address] * POC GLUCOSE (02/19/2020 5:58 AM CDT) GLUCOSE POC 98 74 - 99 mg/dL 02/19/2020 5:58 AM CDT [facility] REAL ESTATE APPRAISER NAME POC RONEY MORELAND 02/19/2020 5:58 AM CDT [facility] [employer] [facility]ORY SERVICES [facility] Blood, whole 02/19/2020 5:58 AM CDT 02/19/2020 6:07 AM CDT Richard Mead MD POINT OF CARE TEST ING Performing Organization Address [facility]/ZIP Co de Phone Number [facility] [employer] [facility] CLIA# [id number] [address] [place] [address] * (ABNORMAL) POC GLUCOSE (02/19/2020 5:06 AM CDT) GLUCOSE POC 106(H) 74 - 99 mg/dL 02/19/2020 5:06 AM CDT [facility] [employer] [facility] SERVICES [facility] REAL ESTATE APPRAISER NAME POC RONEY MORELAND 02/19/2020 5:06 AM CDT [facility] [employer] [facility]ORY SERVICES [facility] Blood, whole 02/19/2020 5:06 AM CDT 02/19/2020 5:16 AM CDT Richard Mead MD POINT OF CARE TEST ING [facility] CLIA# [id number] [address] [place] [address] * (ABNORMAL) TRIGLYCERIDE (02/19/2020 4:09 AM CDT) [facility] TRIGLYCERIDE 404(H) <150 mg/dL 02/19/2020 4:53 AM CDT [facility] Blood Venipuncture / Unknown 02/19/2020 4:09 AM CDT 02/19/2020 4:13 AM CDT Narrative [facility] - 02/19/2020 4:53 AM CDT TRIGLYCERIDES ? mg/dL Normal ?< 150 Borderline High ?150 - 199 High ? 200 - 499 Very High ? >= 500 Based on AHA/NCEP Guidelines. Richard Mead MD CHEMISTRY ORDERABL ES Performing Organization Address City/[facility]/ZIP Co de Phone Number [facility]# [id number] [address] [place] [address] * (ABNORMAL) POC GLUCOSE (02/19/2020 3:58 AM CDT) [facility] GLUCOSE POC 122(H) 74 - 99 mg/dL 02/19/2020 3:58 AM CDT [facility] REAL ESTATE APPRAISER NAME POC RONEY MORELAND 02/19/2020 3:58 AM CDT [facility] Blood, whole 02/19/2020 3:58 AM CDT 02/19/2020 4:15 AM CDT Richard Mead MD POINT OF CARE TEST ING Performing Organization Address [facility]/ZIP Co de Phone Number [facility]# [id number] [address] [place] [address] * (ABNORMAL) POC GLUCOSE (02/19/2020 3:20 AM CDT) GLUCOSE POC 149(H) 74 - 99 mg/dL 02/19/2020 3:20 AM CDT [facility] REAL ESTATE APPRAISER NAME POC ROBERT CONNOR (CLIFFORD) 02/19/2020 3:20 AM CDT [facility] Blood, whole 02/19/2020 3:20 AM CDT 02/19/2020 3:30 AM CDT Richard Mead MD POINT OF CARE TEST ING Performing Organization Address [facility]/ZIP Co de Phone Number [facility] CLIA# [id number] [address] [place] [place] [address] * (ABNORMAL) POC GLUCOSE (02/19/2020 2:01 AM CDT) GLUCOSE POC 198(H) 74 - 99 mg/dL 02/19/2020 2:01 AM CDT [facility] REAL ESTATE APPRAISER NAME POC RONEY MORELAND 02/19/2020 2:01 AM CDT [facility] Blood, whole 02/19/2020 2:01 AM CDT 02/19/2020 2:08 AM CDT Richard Mead MD POINT OF CARE TEST ING Performing Organization Address [facility] Co de Phone Number [facility]# [id number] [address] [place] [address] * (ABNORMAL) POC GLUCOSE (02/19/2020 12:57 AM CDT) GLUCOSE POC 207(H) 74 - 99 mg/dL 02/19/2020 12:57 AM CDT [facility] REAL ESTATE APPRAISER NAME POC ROENY MORELAND 02/19/2020 12:57 AM CDT [facility] SERVICES [facility] Blood, whole 02/19/2020 12:5 7 AM CDT 02/19/2020 1:06 AM CDT Richard Mead MD POINT OF CARE TEST ING Performing Organization Address [facility]/ZIP Co de Phone Number [facility]# [id number] [address] [place] [address] * (ABNORMAL) POC GLUCOSE (02/19/2020 12:01 AM CDT) GLUCOSE POC 175(H) 74 - 99 mg/dL 02/19/2020 12:01 AM CDT [facility] REAL ESTATE APPRAISER NAME POC RONEY MORELAND 02/19/2020 12:01 AM CDT [facility] Blood, whole 02/19/2020 12:0 1 AM CDT 02/19/2020 12:11 AM CDT Richard Mead MD POINT OF CARE TEST ING Performing Organization Address [facility] Co de Phone Number [facility]# [id number] [address] [place] [address] * (ABNORMAL) POC GLUCOSE (02/18/2020 11:00 PM CDT) GLUCOSE POC 152(H) 74 - 99 mg/dL 02/18/2020 11:00 PM CDT [facility] REAL ESTATE APPRAISER NAME POC ROBERT CONNOR) 02/18/2020 11:00 PM CDT [facility] Blood, whole 02/18/2020 11:0 0 PM CDT 02/18/2020 11:10 PM CDT Richard Mead MD POINT OF CARE TEST ING Performing Organization Address [facility]/ZIP Co de Phone Number [facility] [employer] [facility]# [id number] [address] [place] [address] * (ABNORMAL) POC GLUCOSE (02/18/2020 10:01 PM CDT) GLUCOSE POC 164(H) 74 - 99 mg/dL 02/18/2020 10:01 PM CDT [facility] REAL ESTATE APPRAISER NAME POC RONEY MORELAND 02/18/2020 10:01 PM CDT [facility] Blood, whole 02/18/2020 10:0 1 PM CDT 02/18/2020 10:23 PM CDT Richard Mead MD POINT OF CARE TEST ING Performing Organization Address [facility] Co de Phone Number [facility]# [id number] [address] [place] [address] * (ABNORMAL) POC GLUCOSE (02/18/2020 8:57 PM CDT) GLUCOSE POC 161(H) 74 - 99 mg/dL 02/18/2020 8:57 PM CDT [facility] REAL ESTATE APPRAISER NAME POC RONEY MORELAND 02/18/2020 8:57 PM CDT [facility] Blood, whole 02/18/2020 8:57 PM CDT 02/18/2020 9:14 PM CDT Richard Mead MD POINT OF CARE TEST ING Performing Organization Address [facility] Co de Phone Number [facility]# [id number] [address] [place] [address] * (ABNORMAL) POC GLUCOSE (02/18/2020 8:00 PM CDT) GLUCOSE POC 194(H) 74 - 99 mg/dL 02/18/2020 8:00 PM CDT [facility] REAL ESTATE APPRAISER NAME POC RONEY MORELAND 02/18/2020 8:00 PM CDT [facility] Blood, whole 02/18/2020 8:00 PM CDT 02/18/2020 8:15 PM CDT Richard Mead MD POINT OF CARE TEST ING Performing Organization Address [facility]/ZIP Co de Phone Number [facility] [employer] [facility]# [id number] [address] [place] [address] * (ABNORMAL) POC GLUCOSE (02/18/2020 7:02 PM CDT) GLUCOSE POC 173(H) 74 - 99 mg/dL 02/18/2020 7:02 PM CDT [facility] REAL ESTATE APPRAISER NAME POC ROBERT CONNOR ([place]) 02/18/2020 7:02 PM CDT [facility] Blood, whole 02/18/2020 7:02 PM CDT 02/18/2020 7:11 PM CDT Richard Mead MD POINT OF CARE TEST ING Performing Organization Address [facility] Co de Phone Number [facility] [employer] [facility]# [id number] [address] [place] [address] * (ABNORMAL) POC GLUCOSE (02/18/2020 6:00 PM CDT) GLUCOSE POC 147(H) 74 - 99 mg/dL 02/18/2020 6:00 PM CDT [facility] REAL ESTATE APPRAISER NAME POC KATIE HERRERA 02/18/2020 6:00 PM CDT [facility] Blood, whole 02/18/2020 6:00 PM CDT 02/18/2020 6:07 PM CDT Richard Mead MD POINT OF CARE TEST ING Performing Organization Address [facility]/ZIP Co de Phone Number [facility] [employer] [facility]# [id number] [address] [place] [address] * (ABNORMAL) BASIC METABOLIC PANEL (02/18/2020 5:38 PM CDT) SODIUM 139 136 - 145 mmol/L 02/18/2020 6:29 PM CDT [employer] LABORATORY SERVICES - [facility] POTASSIUM 3.7 3.5 - 5.0 mmol/L 02/18/2020 6:29 PM CDT [employer] LABORATORY SERVICES - . [facility] CHLORIDE 109(H) 98 - 107 mmol/L 02/18/2020 6:29 PM T [employer] LABORATORY SERVICES - [facility] CO2 20(L) 22 - 29 mmol/L 02/18/2020 6:29 PM T [employer] LABORATORY SERVICES - . [facility] CALCIUM 7.8(L) 8.6 - 10.2 mg/dL 02/18/2020 6:29 PM T [employer] LABORATORY SERVICES - . [facility] BUN <2(L) 6 - 20 mg/dL 02/18/2020 6:29 PM T [employer] LABORATORY SERVICES - . [facility] CREATININE 0.39(L) 0.51 - 0.95 mg/dL 02/18/2020 6:29 PM T [employer] LABORATORY SERVICES - [facility] GLUCOSE 171(H) 74 - 99 mg/dL 02/18/2020 6:29 PM T [employer] LABORATORY SERVICES - [facility] GFR >60 >=60 mL/min/1.7 3 sq meter 02/18/2020 6:29 PM T [employer] LABORATORY SERVICES - [facility] Comment: eGFR has not been [...] 3 sq meter 02/18/2020 6:29 PM CDT [employer] LABORATORY SERVICES - [facility] ANION GAP 10 8 - 16 mmol/L 02/18/2020 6:29 PM T [employer] LABORATORY SERVICES - [facility] Blood Venipuncture / Unknown 02/18/2020 5:38 PM CDT 02/18/2020 5:44 PM CDT Richard Mead MD CHEMISTRY ORDERABL ES Performing Organization Address [facility]/ZIP Co de Phone Number [facility]# [id number] [address] [place] [address] * (ABNORMAL) POC GLUCOSE (02/18/2020 4:57 PM CDT) GLUCOSE POC 141(H) 74 - 99 mg/dL 02/18/2020 4:57 PM CDT [facility] LABORATORY SERVICES [facility] REAL ESTATE APPRAISER NAME POC KATIE HERRERA 02/18/2020 4:57 PM CDT [facility] LABORATORY SERVICES [facility] Blood, whole 02/18/2020 4:57 PM CDT 02/18/2020 5:05 PM CDT Richard Mead MD POINT OF CARE TEST ING Performing Organization Address [facility]/ZIP Co de Phone Number [facility] CLIA# [id number] [address] [place] [address] * (ABNORMAL) POC GLUCOSE (02/18/2020 3:54 PM CDT) GLUCOSE POC 129(H) 74 - 99 mg/dL 02/18/2020 3:54 PM CDT [facility]ATORY SERVICES [facility] COMMENT, GLU POC Notified RN/MD 02/18/2020 3:54 PM CDT [facility] LABORATORY SERVICES - [facility] REAL ESTATE APPRAISER NAME POC MILADYS (pn-JACQUELINE )CONNIE 02/18/2020 3:54 PM CDT [facility] LABORATORY SERVICES [facility] Blood, whole 02/18/2020 3:54 PM CDT 02/18/2020 4:03 PM CDT Richard Mead MD POINT OF CARE TEST ING Performing Organization Address [facility]/ZIP Co de Phone Number [facility] CLIA# [id number] [address] [place] [address] * (ABNORMAL) POC GLUCOSE (02/18/2020 3:05 PM CDT) GLUCOSE POC 129(H) 74 - 99 mg/dL 02/18/2020 3:05 PM CDT [facility] REAL ESTATE APPRAISER NAME POC KATIE HERRERA 02/18/2020 3:05 PM CDT [facility] LABORATORY SERVICES [facility] Blood, whole 02/18/2020 3:05 PM CDT 02/18/2020 3:13 PM CDT Richard Mead MD POINT OF CARE TEST ING Performing Organization Address City/[facility]/ZIP Co de Phone Number [facility] [employer] [facility] CLIA# [id number] [address] [place] [address] * (ABNORMAL) POC GLUCOSE (02/18/2020 1:58 PM CDT) GLUCOSE POC 119(H) 74 - 99 mg/dL 02/18/2020 1:58 PM CDT [facility] LABORATORY SERVICES [facility] REAL ESTATE APPRAISER NAME FRANCESCA BEARDEN 02/18/2020 1:58 PM CDT [facility] LABORATORY SERVICES [facility] Blood, whole 02/18/2020 1:58 PM CDT 02/18/2020 2:06 PM CDT Richard Mead MD POINT OF CARE TEST ING [facility] CLIA# [id number] [address] [place] [address] * (ABNORMAL) POC GLUCOSE (02/18/2020 1:02 PM CDT) GLUCOSE POC 117(H) 74 - 99 mg/dL 02/18/2020 1:02 PM CDT [facility] REAL ESTATE APPRAISER NAME KATIE MADERA 02/18/2020 1:02 PM CDT [facility] LABORATORY SERVICES [facility] Blood, whole 02/18/2020 1:02 PM CDT 02/18/2020 1:10 PM CDT Richard Mead MD POINT OF CARE TEST ING Performing Organization Address City/[facility]/ZIP Co de Phone Number [facility] [employer] [facility]# [id number] [address] [place] [address] * (ABNORMAL) POC GLUCOSE (02/18/2020 11:57 AM CDT) GLUCOSE POC 107(H) 74 - 99 mg/dL 02/18/2020 11:57 AM CDT [facility] REAL ESTATE APPRAISER NAME KATIE MADERA 02/18/2020 11:57 AM CDT [facility] Blood, whole 02/18/2020 11:5 7 AM CDT 02/18/2020 12:07 PM CDT Richard Mead MD POINT OF CARE TEST ING Performing Organization Address [facility] Co az Phone Number [facility] [employer] [facility]# [id number] [address] [place] [address] * (ABNORMAL) POC GLUCOSE (02/18/2020 11:06 AM CDT) GLUCOSE POC 121(H) 74 - 99 mg/dL 02/18/2020 11:06 AM CDT [facility] REAL ESTATE APPRAISER NAME KATIE MADERA 02/18/2020 11:06 AM CDT [facility] Blood, whole 02/18/2020 11:0 6 AM CDT 02/18/2020 11:13 AM CDT Richard Mead MD POINT OF CARE TEST ING Performing Organization Address [facility] Co de Phone Number [facility] [employer] [facility] CLIA# [id number] [address] [place] [address] * (ABNORMAL) POC GLUCOSE (02/18/2020 10:01 AM CDT) GLUCOSE POC 120(H) 74 - 99 mg/dL 02/18/2020 10:01 AM CDT [facility] REAL ESTATE APPRAISER NAME KATIE MADERA 02/18/2020 10:01 AM CDT [facility] LABORATORY SERVICES [facility] Blood, whole 02/18/2020 10:0 1 AM CDT 02/18/2020 10:08 AM CDT Richard Mead MD POINT OF CARE TEST ING [facility] [employer] [facility] CLIA# [id number] [address] [place] [address] * (ABNORMAL) POC GLUCOSE (02/18/2020 9:02 AM CDT) GLUCOSE POC 111(H) 74 - 99 mg/dL 02/18/2020 9:02 AM CDT [facility] LABORATORY SERVICES [facility] COMMENT, GLU POC Notified RN/MD 02/18/2020 9:02 AM CDT [facility] LABORATORY SERVICES [facility] REAL ESTATE APPRAISER NAME KATIE MADERA 02/18/2020 9:02 AM CDT [facility] Blood, whole 02/18/2020 9:02 AM CDT 02/18/2020 9:09 AM CDT Richard Mead MD POINT OF CARE TEST ING [facility] [employer] [facility] CLIA# [id number] [address] [place] [address] * (ABNORMAL) POC GLUCOSE (02/18/2020 7:59 AM CDT) GLUCOSE POC 121(H) 74 - 99 mg/dL 02/18/2020 7:59 AM CDT [facility] [employer] [facility] REAL ESTATE APPRAISER NAME KATIE MADERA 02/18/2020 7:59 AM CDT [facility] [employer] LAB[facility]ATORY SERVICES [facility] Blood, whole 02/18/2020 7:59 AM CDT 02/18/2020 8:11 AM CDT Richard Mead MD POINT OF CARE TEST ING Performing Organization Address [facility]/ZIP Co de Phone Number [facility] CLIA# [id number] [address] [place] [address] * (ABNORMAL) POC GLUCOSE (02/18/2020 7:08 AM CDT) GLUCOSE POC 121(H) 74 - 99 mg/dL 02/18/2020 7:08 AM CDT [facility] REAL ESTATE APPRAISER NAME RONEY JARAMILLO 02/18/2020 7:08 AM CDT [facility] LABORATORY SERVICES [facility] Blood, whole 02/18/2020 7:08 AM CDT 02/18/2020 7:17 AM CDT Richard Mead MD POINT OF CARE TEST ING Performing Organization Address [facility]/ZIP Co de Phone Number [facility] [employer] [facility] CLNV# [id number] [address] [place] [address] * (ABNORMAL) POC GLUCOSE (02/18/2020 6:00 AM CDT) GLUCOSE POC 102(H) 74 - 99 mg/dL 02/18/2020 6:00 AM CDT [facility] REAL ESTATE APPRAISER NAME POC RONEY MORELAND 02/18/2020 6:00 AM CDT [facility] LABORATORY SERVICES [facility] Blood, whole 02/18/2020 6:00 AM CDT 02/18/2020 6:10 AM CDT Richard Mead MD POINT OF CARE TEST ING Performing Organization Address [facility]/ZIP Co de Phone Number [facility] [employer] [facility] CLIA# [id number] [address] [place] [address] * (ABNORMAL) POC GLUCOSE (02/18/2020 4:59 AM CDT) GLUCOSE POC 105(H) 74 - 99 mg/dL 02/18/2020 4:59 AM CDT [employer] LABORATORY SERVICES - [facility] REAL ESTATE APPRAISER NAME POC RONEY MORELAND 02/18/2020 4:59 AM CDT [employer] [facility]ORY SERVICES - [facility] Blood, whole 02/18/2020 4:59 AM CDT 02/18/2020 5:10 AM CDT Jamar Pelaez MD POINT OF CARE TESTIN G [facility] [employer] SERVICES [facility]# [id number] [address] [facility] [place] [address] * (ABNORMAL) CBC WITH DIFFERENTIAL (02/18/2020 4:04 AM CDT) WBC 6.4 4.0 - 9.8 K/uL 02/18/2020 4:15 AM CDT [employer] LABORATORY SERVICES [facility] RBC 3.58(L) 3.90 - 4.90 M/uL 02/18/2020 4:15 AM CDT [employer] LABORATORY SERVICES [facility] HEMOGLOBIN 10.9(L) 11.8 - 14.8 g/dL 02/18/2020 4:15 AM CDT [employer] LABORATORY SERVICES [facility] HEMATOCRIT 32.2(L) 35.5 - 44.0 % 02/18/2020 4:15 AM CDT [employer] LABORATORY SERVICES [facility] MCV 89.9 82.0 - 99.0 fL 02/18/2020 4:15 AM CDT [employer] LABORATORY SERVICES [facility] MCH 30.4 27.2 - 32.6 pg 02/18/2020 4:15 AM CDT [employer] [facility]ATORY SERVICES - [facility] MCHC 33.9 31.5 - 35.5 g/dL 02/18/2020 4:15 AM CDT [employer] LABORATORY SERVICES [facility] RDW 15.3(H) 11.5 - 14.5 % 02/18/2020 4:15 AM CDT [employer] [facility]ORATORY SERVICES - [facility] RDW-STDEV 50.3(H) 37.1 - 48.7 fL 02/18/2020 4:15 AM CDT [employer] [facility]ORY SERVICES - [facility] PLATELETS 218 140 - 350 K/uL 02/18/2020 4:15 AM CDT [employer] [facility] SERVICES - [facility] MPV 9.1(L) 9.3 - 12.4 fL 02/18/2020 4:15 AM CDT [employer] [facility]ORY SERVICES - [facility] NEUTROPHILS 72 % 02/18/2020 4:15 AM CDT [employer] [facility]ATORY SERVICES - [facility] LYMPHOCYTES 18 % 02/18/2020 4:15 AM CDT [employer] LABORATORY SERVICES - . [facility] MONOCYTES 7 % 02/18/2020 4:15 AM CDT [employer] LABORATORY SERVICES - . [facility] EOSINOPHILS 1 % 02/18/2020 4:15 AM CDT [employer] [facility]ATORY SERVICES - [facility] BASOPHILS 1 % 02/18/2020 4:15 AM CDT [employer] [facility]ATORY SERVICES - [facility] IMMATURE GRANULOCYTES 1 % 02/18/2020 4:15 AM T [employer] [facility]ORY SERVICES - [facility] Comment:IG (Immature Granulo cyte) count includes Metamyelocytes, Myelocytes, and Promyelocytes NEUTROPHIL ABSOLUTE 4.59 1.90 - 7.00 K/uL 02/18/2020 4:15 AM CDT [employer] LABORATORY SERVICES - [facility] LYMPHOCYTE ABSOLUTE 1.17 0.70 - 4.50 K/uL 02/18/2020 4:15 AM CDT [employer] [facility] - . [facility] MONOCYTE ABSOLUTE 0.47 0.10 - 1.30 K/uL 02/18/2020 4:15 AM CDT [employer] [facility] - . [facility] EOSINOPHIL ABSOLUTE 0.08 0.00 - 0.70 K/uL 02/18/2020 4:15 AM CDT [employer] [facility] - . [facility] BASOPHILS ABSOLUTE 0.03 0.00 - 0.20 K/uL 02/18/2020 4:15 AM CDT [employer] [facility] - . [facility] IMMATURE GRANULOCYTES ABSOLUTE 0.03 0.00 - 0.03 K/uL 02/18/2020 4:15 AM T [employer] [facility] - [facility] Blood Venipuncture / Unknown 02/18/2020 4:04 AM CDT 02/18/2020 4:10 AM CDT Jamar Pelaez MD HEMATOLOGY ORDERABLE S Performing Organization Address [facility]/ZIP Co de Phone Number [facility] [employer] [facility]# [id number] [address] [place] [address] * (ABNORMAL) TRIGLYCERIDE (02/18/2020 4:04 AM CDT) TRIGLYCERIDE 744(H) <150 mg/dL 02/18/2020 4:44 AM CDT [facility] [employer] [facility] Blood Venipuncture / Unknown 02/18/2020 4:04 AM CDT 02/18/2020 4:10 AM CDT Narrative [facility] [employer] [facility] - 02/18/2020 4:44 AM CDT TRIGLYCERIDES ? mg/dL Normal ?< 150 Borderline High ?150 - 199 High ? 200 - 499 Very High ? >= 500 Based on AHA/NCEP Guidelines. Alize Arteaga MD CHEMISTRY ORDER OSVALDO Performing Organization Address [facility] Co de Phone Number [facility] [employer] [facility]# [id number] [place] [address] * POC GLUCOSE (02/18/2020 4:02 AM CDT) GLUCOSE POC 98 74 - 99 mg/dL 02/18/2020 4:02 AM CDT [facility] [employer] [facility] REAL ESTATE APPRAISER NAME POC RONEY MORELAND 02/18/2020 4:02 AM CDT [facility] [employer] [facility] Blood, whole 02/18/2020 4:02 AM CDT 02/18/2020 4:12 AM CDT Jamar Pelaez MD POINT OF CARE TESTIN G Performing Organization Address [facility]/ZIP Co de Phone Number [facility] [employer] [facility] CLIA# [id number] [address] [place] [address] * (ABNORMAL) POC GLUCOSE (02/18/2020 3:00 AM CDT) GLUCOSE POC 117(H) 74 - 99 mg/dL 02/18/2020 3:00 AM CDT [facility] SERVICES [facility] REAL ESTATE APPRAISER NAME RONEY JARAMILLO 02/18/2020 3:00 AM CDT [facility] Blood, whole 02/18/2020 3:00 AM CDT 02/18/2020 3:14 AM CDT Jamar Pelaez MD POINT OF CARE TESTJERONIMO G [facility] [employer] [facility]# [id number] [address] [place] [address] * (ABNORMAL) POC GLUCOSE (02/18/2020 2:08 AM CDT) GLUCOSE POC 123(H) 74 - 99 mg/dL 02/18/2020 2:08 AM CDT [facility] REAL ESTATE APPRAISER NAME RONEY JARAMILLO 02/18/2020 2:08 AM CDT [facility] Blood, whole 02/18/2020 2:08 AM CDT 02/18/2020 2:14 AM CDT Jamar Pelaez MD POINT OF CARE FLY Serrano [facility]# [id number] [address] [place] [address] * (ABNORMAL) POC GLUCOSE (02/18/2020 12:57 AM CDT) GLUCOSE POC 146(H) 74 - 99 mg/dL 02/18/2020 12:57 AM CDT [facility] REAL ESTATE APPRAISER NAME RONEY JARAMILLO 02/18/2020 12:57 AM CDT [facility] SERVICES [facility] Blood, whole 02/18/2020 12:5 7 AM CDT 02/18/2020 1:03 AM CDT Jamar Pelaez MD POINT OF CARE TESTIN G [facility] [employer] [facility] CLIA# [id number] [address] [facility] [address] [address] * (ABNORMAL) BASIC METABOLIC PANEL (02/17/2020 11:57 PM CDT) SODIUM 138 136 - 145 mmol/L 02/18/2020 1:13 AM CDT [facility] [facility] POTASSIUM 3.8 3.5 - 5.0 mmol/L 02/18/2020 1:13 AM T [facility] [facility] [employer] [facility] Comment:Slightly hemolyzed. Result may be falsely elevated. CHLORIDE 109(H) 98 - 107 mmol/L 02/18/2020 1:13 AM T [facility] [employer] [facility] CO2 21(L) 22 - 29 mmol/L 02/18/2020 1:13 AM T [facility] [employer] [facility] CALCIUM 7.6(L) 8.6 - 10.2 mg/dL 02/18/2020 1:13 AM T [facility] [employer] [facility] BUN 2(L) 6 - 20 mg/dL 02/18/2020 1:13 AM T [facility] [employer] [facility] CREATININE 0.43(L) 0.51 - 0.95 mg/dL 02/18/2020 1:13 AM T [facility] [employer] [facility] GLUCOSE 165(H) 74 - 99 mg/dL 02/18/2020 1:13 AM T [facility] [employer] [facility] GFR >60 >=60 mL/min/1.7 3 sq meter 02/18/2020 1:13 AM T [employer] [facility] Comment: eGFR has [...] 3 sq meter 02/18/2020 1:13 AM CDT [facility] LAB[facility] SERVICES [facility] ANION GAP 8 8 - 16 mmol/L 02/18/2020 1:13 AM CDT [facility] SERVICES [facility] Blood Venipuncture / Unknown 02/17/2020 11:57 PM CDT 02/18/2020 12:14 AM CDT Jamar Pelaez MD CHEMISTRY ORDERABLES Performing Organization Address [facility]/ZIP Co de Phone Number [facility] [employer] [facility]# [id number] [address] [place] [address] * (ABNORMAL) POC GLUCOSE (02/17/2020 11:55 PM CDT) GLUCOSE POC 149(H) 74 - 99 mg/dL 02/17/2020 11:55 PM CDT [facility] REAL ESTATE APPRAISER NAME POC RONEY MORELAND 02/17/2020 11:55 PM CDT [facility] SERVICES [facility] Blood, whole 02/17/2020 11:5 5 PM CDT 02/18/2020 12:05 AM CDT Jamar Pelaez MD POINT OF CARE TESTIN G Performing Organization Address [facility]/ZIP Co de Phone Number [facility] [employer] [facility]# [id number] [address] [place] [address] * (ABNORMAL) POC GLUCOSE (02/17/2020 10:58 PM CDT) GLUCOSE POC 139(H) 74 - 99 mg/dL 02/17/2020 10:58 PM CDT [facility] REAL ESTATE APPRAISER NAME POC RONEY MORELAND 02/17/2020 10:58 PM CDT [facility] Blood, whole 02/17/2020 10:5 8 PM CDT 02/17/2020 11:05 PM CDT Jamar Pelaez MD POINT OF CARE TESTIN G [facility] CLIA# [id number] [address] [place] [address] * (ABNORMAL) POC GLUCOSE (02/17/2020 9:58 PM CDT) GLUCOSE POC 120(H) 74 - 99 mg/dL 02/17/2020 9:58 PM CDT [facility] REAL ESTATE APPRAISER NAME POC RONEY MORELAND 02/17/2020 9:58 PM CDT [facility] Blood, whole 02/17/2020 9:58 PM CDT 02/17/2020 10:05 PM CDT Jamar Pelaez MD POINT OF CARE TESTIN G Performing Organization Address [facility]/ZIP Co de Phone Number [facility] [employer] [facility] CLIA# [id number] [address] [place] [address] * (ABNORMAL) POC GLUCOSE (02/17/2020 8:53 PM CDT) GLUCOSE POC 117(H) 74 - 99 mg/dL 02/17/2020 8:53 PM CDT [facility] REAL ESTATE APPRAISER NAME POC RONEY MORELAND 02/17/2020 8:53 PM CDT [facility] Blood, whole 02/17/2020 8:53 PM CDT 02/17/2020 9:03 PM CDT Jamar Pelaez MD POINT OF CARE TESTIN Maggie [facility] CLIA# [id number] [address] [place] [address] * (ABNORMAL) POC GLUCOSE (02/17/2020 8:02 PM CDT) GLUCOSE POC 118(H) 74 - 99 mg/dL 02/17/2020 8:02 PM CDT [facility]OR[facility] SERVICES [facility] REAL ESTATE APPRAISER NAME POC RONEY MORELAND 02/17/2020 8:02 PM CDT [facility] SERVICES [facility] Blood, whole 02/17/2020 8:02 PM CDT 02/17/2020 8:10 PM CDT Jamar Pelaez MD POINT OF CARE TESTIN G [id number] [address] [facility] [address] [address] * (ABNORMAL) POC GLUCOSE (02/17/2020 7:01 PM CDT) GLUCOSE POC 116(H) 74 - 99 mg/dL 02/17/2020 7:01 PM CDT [facility] SERVICES [facility] REAL ESTATE APPRAISER NAME POC KATIE HERRERA 02/17/2020 7:01 PM CDT [facility] SERVICES [facility] Blood, whole 02/17/2020 7:01 PM CDT 02/17/2020 7:09 PM CDT Jamar Pelaez MD POINT OF CARE TESTJERONIMO G [facility] CLIA# [id number] [address] [place] [address] * (ABNORMAL) POC GLUCOSE (02/17/2020 6:00 PM CDT) GLUCOSE POC 140(H) 74 - 99 mg/dL 02/17/2020 6:00 PM CDT [facility]OR[facility] SERVICES [facility] COMMENT, GLU POC Notified RN/MD 02/17/2020 6:00 PM CDT [facility] SERVICES [facility] REAL ESTATE APPRAISER NAME POC ELIGIO MARTIN 02/17/2020 6:00 PM CDT [facility] SERVICES [facility] Blood, whole 02/17/2020 6:00 PM CDT 02/17/2020 6:08 PM CDT Jamar Pelaez MD POINT OF CARE TESTIN Performing Organization Address [facility] Co de Phone Number [facility] [employer] [facility] CLIA# [id number] [address] [place] [address] * (ABNORMAL) POC GLUCOSE (02/17/2020 4:59 PM CDT) GLUCOSE POC 175(H) 74 - 99 mg/dL 02/17/2020 4:59 PM CDT [facility] REAL ESTATE APPRAISER NAME POC KATIE HERRERA 02/17/2020 4:59 PM CDT [facility] [employer] [facility] Blood, whole 02/17/2020 4:59 PM CDT 02/17/2020 5:07 PM CDT Jamar Pelaez MD POINT OF CARE TESTJERONIMO G Performing Organization Address [facility] Co de Phone Number [facility] [employer] [facility] CLIA# [id number] [address] [place] [address] * (ABNORMAL) BASIC METABOLIC PANEL (02/17/2020 4:10 PM CDT) SODIUM 139 136 - 145 mmol/L 02/17/2020 5:42 PM CDT [facility] POTASSIUM 3.9 3.5 - 5.0 mmol/L 02/17/2020 5:42 PM CDT [facility] [employer] LAB[facility] SERVICES [facility] Comment:Moderate hemolysis p resent. Can cause significant falsely elevated result. Redraw if indicated. CHLORIDE 109(H) 98 - 107 mmol/L 02/17/2020 5:42 PM CDT [facility] CO2 18(L) 22 - 29 mmol/L 02/17/2020 5:42 PM CDT [facility] CALCIUM 7.5(L) 8.6 - 10.2 mg/dL 02/17/2020 5:42 PM CDT [facility] BUN 2(L) 6 - 20 mg/dL 02/17/2020 5:42 PM CDT [facility] CREATININE 0.38(L) 0.51 - 0.95 mg/dL 02/17/2020 5:42 PM CDT [facility] GLUCOSE 185(H) 74 - 99 mg/dL 02/17/2020 5:42 PM CDT [facility] GFR >60 >=60 mL/min/1.7 3 sq meter 02/17/2020 5:42 PM CDT [facility] Comment: eGFR has not [...] 3 sq meter 02/17/2020 5:42 PM CDT [facility] ANION GAP 12 8 - 16 mmol/L 02/17/2020 5:42 PM CDT [facility] Blood Venipuncture / Unknown 02/17/2020 4:10 PM CDT 02/17/2020 4:24 PM CDT Jamar Pelaez MD CHEMISTRY ORDERABLES [facility] [employer] [facility]# [id number] [address] [address] * (ABNORMAL) POC GLUCOSE (02/17/2020 4:03 PM CDT) GLUCOSE POC 166(H) 74 - 99 mg/dL 02/17/2020 4:03 PM CDT [facility] REAL ESTATE APPRAISER NAME POC KATIE HERRERA 02/17/2020 4:03 PM CDT [facility] LABORATORY SERVICES [facility] Blood, whole 02/17/2020 4:03 PM CDT 02/17/2020 4:18 PM CDT Jamar Pelaez MD POINT OF CARE TESTIN G Performing Organization Address [facility]/ZIP Co de Phone Number [facility] CLIA# [id number] [address] [place] [address] * (ABNORMAL) POC GLUCOSE (02/17/2020 2:59 PM CDT) GLUCOSE POC 153(H) 74 - 99 mg/dL 02/17/2020 2:59 PM CDT [facility] LABORATORY SERVICES [facility] COMMENT, GLU POC Notified RN/MD 02/17/2020 2:59 PM CDT [facility] LABORATORY SERVICES [facility] REAL ESTATE APPRAISER NAME POC FRANCESCA ACUNA 02/17/2020 2:59 PM CDT [facility] LABORATORY SERVICES [facility] Blood, whole 02/17/2020 2:59 PM CDT 02/17/2020 3:05 PM CDT Jamar Pelaez MD POINT OF CARE TESTIN G Performing Organization Address [facility]/ZIP Co de Phone Number [facility] [employer] [facility] CLIA# [id number] [address] [place] [address] * (ABNORMAL) POC GLUCOSE (02/17/2020 2:05 PM CDT) GLUCOSE POC 149(H) 74 - 99 mg/dL 02/17/2020 2:05 PM CDT [facility] LABORATORY SERVICES [facility] REAL ESTATE APPRAISER NAME POC KATIE HERRERA 02/17/2020 2:05 PM CDT [facility] LABORATORY SERVICES [facility] Blood, whole 02/17/2020 2:05 PM CDT 02/17/2020 2:13 PM CDT Jamar Pelaez MD POINT OF CARE TESTIN G [facility] [employer] [facility] CLIA# [id number] [address] [place] [address] * (ABNORMAL) POC GLUCOSE (02/17/2020 1:01 PM CDT) GLUCOSE POC 125(H) 74 - 99 mg/dL 02/17/2020 1:01 PM CDT [facility] REAL ESTATE APPRAISER NAME KATIE MADERA 02/17/2020 1:01 PM CDT [facility] LABORATORY SERVICES [facility] Blood, whole 02/17/2020 1:01 PM CDT 02/17/2020 1:23 PM CDT Jamar Pelaez MD POINT OF CARE TESTIN Maggie Performing Organization Address [facility]/ZIP Co de Phone Number [facility] [employer] [facility] CLIA# [id number] [address] [place] [address] * (ABNORMAL) POC GLUCOSE (02/17/2020 12:00 PM CDT) GLUCOSE POC 116(H) 74 - 99 mg/dL 02/17/2020 12:00 PM CDT [facility] REAL ESTATE APPRAISER NAME KATIE MADERA 02/17/2020 12:00 PM CDT [facility] LAB[facility] Blood, whole 02/17/2020 12:0 0 PM CDT 02/17/2020 12:33 PM CDT Jamar Pelaez MD POINT OF CARE TESTIN Maggie Performing Organization Address City/[facility]/ZIP Co de Phone Number [facility] [employer] [facility] CLIA# [id number] [address] [place] [address] * (ABNORMAL) POC GLUCOSE (02/17/2020 10:58 AM CDT) GLUCOSE POC 106(H) 74 - 99 mg/dL 02/17/2020 10:58 AM CDT [facility] LAB[facility] REAL ESTATE APPRAISER NAME KATIE MADERA 02/17/2020 10:58 AM CDT [employer] LABORATORY SERVICES [facility] Blood, whole 02/17/2020 10:5 8 AM CDT 02/17/2020 12:22 PM CDT Jamar Pelaez MD POINT OF CARE TESTIN Maggie [facility] CLIA# [id number] [address] [place] [address] * (ABNORMAL) POC GLUCOSE (02/17/2020 10:03 AM CDT) GLUCOSE POC 126(H) 74 - 99 mg/dL 02/17/2020 10:03 AM CDT [employer] LABORATORY SERVICES [facility] REAL ESTATE APPRAISER NAME KATIE MADERA 02/17/2020 10:03 AM CDT [employer] LABORATORY SERVICES [facility] Blood, whole 02/17/2020 10:0 3 AM CDT 02/17/2020 12:21 PM CDT Jamar Pelaez MD POINT OF CARE TESTIN Maggie Performing Organization Address [facility] Co az Phone Number [facility] [employer] [facility] CLIA# [id number] [address] [place] [address] * (ABNORMAL) POC GLUCOSE (02/17/2020 9:00 AM CDT) GLUCOSE POC 115(H) 74 - 99 mg/dL 02/17/2020 9:00 AM CDT [facility] [employer] [facility] REAL ESTATE APPRAISER NAME KATIE MADERA 02/17/2020 9:00 AM CDT [employer] LABORATORY SERVICES [facility] Blood, whole 02/17/2020 9:00 AM CDT 02/17/2020 12:20 PM CDT Jamar Pelaez MD POINT OF CARE TESTIN Maggie Performing Organization Address City/[facility]/ZIP Co de Phone Number [facility] [employer] LAB[facility] CLIA# [id number] [address] [facility] [address] [address] * (ABNORMAL) BASIC METABOLIC PANEL (02/17/2020 8:11 AM CDT) SODIUM 138 136 - 145 mmol/L 02/17/2020 8:52 AM CDT [employer] LABORATORY SERVICES [facility] POTASSIUM 4.5 3.5 - 5.0 mmol/L 02/17/2020 8:52 AM T [employer] LABORATORY SERVICES [facility] Comment:Moderate hemolysis p resent. Can cause significant falsely elevated result. Redraw if indicated. CHLORIDE 108(H) 98 - 107 mmol/L 02/17/2020 8:52 AM T [employer] SERVICES [facility] CO2 22 22 - 29 mmol/L 02/17/2020 8:52 AM T [employer] SERVICES [facility] CALCIUM 7.7(L) 8.6 - 10.2 mg/dL 02/17/2020 8:52 AM T [employer] SERVICES [facility] BUN 2(L) 6 - 20 mg/dL 02/17/2020 8:52 AM [employer] SERVICES [facility] CREATININE 0.49(L) 0.51 - 0.95 mg/dL 02/17/2020 8:52 AM T [employer] SERVICES [facility] GLUCOSE 147(H) 74 - 99 mg/dL 02/17/2020 8:52 AM [employer] SERVICES [facility] GFR >60 >=60 mL/min/1.7 3 sq meter 02/17/2020 8:52 AM [email or web address] LABORATORY SERVICES [facility] Comment: eGFR has not been validated for [...] 3 sq meter 02/17/2020 8:52 AM CDT [facility] LABORATORY SERVICES [facility] ANION GAP 8 8 - 16 mmol/L 02/17/2020 8:52 AM CDT [facility] LAB[facility]ORY [facility] Blood Venipuncture / Unknown 02/17/2020 8:11 AM CDT 02/17/2020 8:15 AM CDT Jamar Pelaez MD CHEMISTRY ORDERABLES Performing Organization Address [facility]/ZIP Co de Phone Number [facility] [employer] [facility]# [id number] [address] [place] [address] * (ABNORMAL) POC GLUCOSE (02/17/2020 8:03 AM CDT) GLUCOSE POC 132(H) 74 - 99 mg/dL 02/17/2020 8:03 AM CDT [facility] LAB[facility]ORY [facility] REAL ESTATE APPRAISER NAME POC KATIE HERRERA 02/17/2020 8:03 AM CDT [facility] LABORATORY [facility] Blood, whole 02/17/2020 8:03 AM CDT 02/17/2020 12:18 PM CDT Jamar Pelaez MD POINT OF CARE TESTJERONIMO Serrano Performing Organization Address [facility] Co de Phone Number [facility] [employer] [id number] [address] [place] [address] * (ABNORMAL) POC GLUCOSE (02/17/2020 6:58 AM CDT) GLUCOSE POC 144(H) 74 - 99 mg/dL 02/17/2020 6:58 AM CDT [facility] LABORATORY [facility] REAL ESTATE APPRAISER NAME POC RONEY MORELAND 02/17/2020 6:58 AM CDT [facility] LABORATORY [facility] Blood, whole 02/17/2020 6:58 AM CDT 02/17/2020 7:09 AM CDT Jamar Pelaez MD POINT OF CARE FLY Serrano Performing Organization Address [facility]/ZIP Co de Phone Number [employer] [facility] CLIA# [id number] [address] [place] [address] * (ABNORMAL) CBC WITH DIFFERENTIAL (02/17/2020 6:32 AM CDT) WBC 13.1(H) 4.0 - 9.8 K/uL 02/17/2020 6:46 AM CDT [employer] LABORATORY SERVICES - [facility] RBC 3.76(L) 3.90 - 4.90 M/uL 02/17/2020 6:46 AM CDT [employer] LABORATORY SERVICES - [facility] HEMOGLOBIN 11.5(L) 11.8 - 14.8 g/dL 02/17/2020 6:46 AM CDT [employer] LABORATORY SERVICES - [facility] HEMATOCRIT 33.9(L) 35.5 - 44.0 % 02/17/2020 6:46 AM CDT [employer] LABORATORY SERVICES - [facility] MCV 90.2 82.0 - 99.0 fL 02/17/2020 6:46 AM CDT [employer] LABORATORY SERVICES - [facility] MCH 30.6 27.2 - 32.6 pg 02/17/2020 6:46 AM CDT [employer] LABORATORY SERVICES - [facility] MCHC 33.9 31.5 - 35.5 g/dL 02/17/2020 6:46 AM CDT [employer] LABORATORY SERVICES - [facility] RDW 14.9(H) 11.5 - 14.5 % 02/17/2020 6:46 AM CDT [employer] LABORATORY SERVICES - [facility] RDW-STDEV 49.6(H) 37.1 - 48.7 fL 02/17/2020 6:46 AM CDT [employer] LABORATORY SERVICES - [facility] PLATELETS 226 140 - 350 K/uL 02/17/2020 6:46 AM CDT [employer] LABORATORY SERVICES - [facility] MPV 8.8(L) 9.3 - 12.4 fL 02/17/2020 6:46 AM CDT [employer] LABORATORY SERVICES - [facility] NEUTROPHILS 81 % 02/17/2020 6:46 AM CDT [employer] LABORATORY SERVICES - . [facility] LYMPHOCYTES 13 % 02/17/2020 6:46 AM CDT [employer] LABORATORY SERVICES - . [facility] MONOCYTES 4 % 02/17/2020 6:46 AM CDT [employer] LABORATORY SERVICES - [facility] EOSINOPHILS 1 % 02/17/2020 6:46 AM CDT [facility] LABORATORY SERVICES - [facility] BASOPHILS 0 % 02/17/2020 6:46 AM CDT [facility] LABORATORY [facility] IMMATURE GRANULOCYTES 1 % 02/17/2020 6:46 AM CDT [facility] LABORATORY SERVICES - [facility] Comment:IG (Immature Granulo cyte) count includes Metamyelocytes, Myelocytes, and Promyelocytes NEUTROPHIL ABSOLUTE 10.64(H) 1.90 - 7.00 K/uL 02/17/2020 6:46 AM CDT [facility] LABORATORY SERVICES - [facility] LYMPHOCYTE ABSOLUTE 1.70 0.70 - 4.50 K/uL 02/17/2020 6:46 AM CDT [facility] MONOCYTE ABSOLUTE 0.57 0.10 - 1.30 K/uL 02/17/2020 6:46 AM CDT [facility] EOSINOPHIL ABSOLUTE 0.08 0.00 - 0.70 K/uL 02/17/2020 6:46 AM CDT [facility] - . [facility] BASOPHILS ABSOLUTE 0.04 0.00 - 0.20 K/uL 02/17/2020 6:46 AM CDT [facility] IMMATURE GRANULOCYTES ABSOLUTE 0.07(H) 0.00 - 0.03 K/uL 02/17/2020 6:46 AM T [facility] [employer] [facility] Blood Venipuncture / Unknown 02/17/2020 6:32 AM CDT 02/17/2020 6:35 AM CDT Jamar Pelaez MD HEMATOLOGY ORDERABLE S [facility] [employer] [facility] CLNV# [id number] [address] [facility] [place] [id number] * (ABNORMAL) POC GLUCOSE (02/17/2020 5:05 AM CDT) GLUCOSE POC 127(H) 74 - 99 mg/dL 02/17/2020 5:05 AM CDT [facility] REAL ESTATE APPRAISER NAME POC RONEY MORELAND 02/17/2020 5:05 AM CDT [facility] Blood, whole 02/17/2020 5:05 AM CDT 02/17/2020 5:15 AM CDT Jamar Pelaez MD POINT OF CARE TESTIN G [facility] CLIA# [id number] [address] [place] [address] * (ABNORMAL) POC GLUCOSE (02/17/2020 4:00 AM CDT) GLUCOSE POC 135(H) 74 - 99 mg/dL 02/17/2020 4:00 AM CDT [facility] REAL ESTATE APPRAISER NAME POC RONEY MORELAND 02/17/2020 4:00 AM CDT [facility] Blood, whole 02/17/2020 4:00 AM CDT 02/17/2020 4:11 AM CDT Jamar Pelaez MD POINT OF CARE TESTJERONIMO Serrano Performing Organization Address [facility]/ZIP Co de Phone Number [facility] [employer] [facility] CLIA# [id number] [address] [place] [address] * (ABNORMAL) POC GLUCOSE (02/17/2020 2:59 AM CDT) GLUCOSE POC 138(H) 74 - 99 mg/dL 02/17/2020 2:59 AM CDT [facility] REAL ESTATE APPRAISER NAME POC RONEY MORELAND 02/17/2020 2:59 AM CDT [facility] Blood, whole 02/17/2020 2:59 AM CDT 02/17/2020 3:12 AM CDT Jamar Pelaez MD POINT OF CARE TESTIN Maggie [facility] CLIA# [id number] [address] [place] [address] * (ABNORMAL) POC GLUCOSE (02/17/2020 2:05 AM CDT) GLUCOSE POC 147(H) 74 - 99 mg/dL 02/17/2020 2:05 AM CDT [facility] COMMENT, GLU POC Notified RN/MD 02/17/2020 2:05 AM CDT [facility] REAL ESTATE APPRAISER NAME POC IVETT TABOR 02/17/2020 2:05 AM CDT [facility] [employer] [facility] Blood, whole 02/17/2020 2:05 AM CDT 02/17/2020 2:13 AM CDT Jamar Pelaez MD POINT OF CARE TESTIN G [facility] [employer] [facility]# [id number] [address] [place] [address] [place] [address] * (ABNORMAL) BASIC METABOLIC PANEL (02/17/2020 2:00 AM CDT) Pathologist [facility] SODIUM 138 136 - 145 mmol/L 02/17/2020 2:43 AM T [facility] POTASSIUM 4.0 3.5 - 5.0 mmol/L 02/17/2020 2:43 AM T [facility] [employer] [facility] Comment:Moderate hemolysis p resent. Can cause significant falsely elevated result. Redraw if indicated. CHLORIDE 105 98 - 107 mmol/L 02/17/2020 2:43 AM CDT [facility] CO2 21(L) 22 - 29 mmol/L 02/17/2020 2:43 AM T [facility] [employer] [facility] CALCIUM 7.9(L) 8.6 - 10.2 mg/dL 02/17/2020 2:43 AM CDT [facility] BUN 3(L) 6 - 20 mg/dL 02/17/2020 2:43 AM T [facility] [employer] [facility] CREATININE 0.39(L) 0.51 - 0.95 mg/dL 02/17/2020 2:43 AM CDT [facility] [employer] [facility] GLUCOSE 165(H) 74 - 99 mg/dL 02/17/2020 2:43 AM CDT [facility] [employer] [facility] GFR >60 >=60 mL/min/1.7 3 sq meter 02/17/2020 2:43 AM CDT [facility] [employer] [facility] Comment: eGFR has [...] 3 sq meter 02/17/2020 2:43 AM CDT [facility] [employer] [facility] ANION GAP 12 8 - 16 mmol/L 02/17/2020 2:43 AM CDT [facility] [employer] [facility] Blood Venipuncture / Unknown 02/17/2020 2:00 AM CDT 02/17/2020 2:02 AM CDT Jamar Pelaez MD CHEMISTRY ORDERABLES [facility] [employer] [facility]# [id number] [address] [place] [address] * (ABNORMAL) TRIGLYCERIDE (02/17/2020 1:10 AM CDT) TRIGLYCERIDE 1,105(H) <150 mg/dL 02/17/2020 1:57 AM CDT [facility] [employer] [facility] Blood Venipuncture / Unknown 02/17/2020 1:10 AM CDT 02/17/2020 1:13 AM CDT Narrative [facility] [employer] [facility] - 02/17/2020 1:57 AM CDT TRIGLYCERIDES ? mg/dL Normal ?< 150 Borderline High ?150 - 199 High ? 200 - 499 Very High ? >= 500 Based on AHA/NCEP Guidelines. Alize Arteaga MD CHEMISTRY ORDER OSVALDO [facility]# [id number] [address] [place] [address] * (ABNORMAL) POC GLUCOSE (02/17/2020 12:57 AM CDT) GLUCOSE POC 147(H) 74 - 99 mg/dL 02/17/2020 12:57 AM CDT [facility] REAL ESTATE APPRAISER NAME POC RONEY MORELAND 02/17/2020 12:57 AM CDT [facility] [employer] [facility] Blood, whole 02/17/2020 12:5 7 AM CDT 02/17/2020 1:04 AM CDT Jamar Pelaez MD POINT OF CARE TESTIN Maggie Performing Organization Address [facility] Co de Phone Number [facility] [employer] [facility]# [id number] [address] [place] [address] * (ABNORMAL) POC GLUCOSE (02/16/2020 11:55 PM CDT) GLUCOSE POC 154(H) 74 - 99 mg/dL 02/16/2020 11:55 PM CDT [facility] REAL [employer]STATE APPRAISER NAME POC RONEY MORELAND 02/16/2020 11:55 PM CDT [facility] [employer] [facility] Blood, whole 02/16/2020 11:5 5 PM CDT 02/17/2020 12:05 AM CDT Jamar Pelaez MD POINT OF CARE TESTJERONIMO Serrano Performing Organization Address [facility]/ZIP Co de Phone Number [facility]# [id number] [address] [place] [address] * (ABNORMAL) POC GLUCOSE (02/16/2020 10:58 PM CDT) GLUCOSE POC 159(H) 74 - 99 mg/dL 02/16/2020 10:58 PM CDT [facility] REAL ESTATE APPRAISER NAME POC RONEY MORELAND 02/16/2020 10:58 PM CDT [facility] - [facility] Blood, whole 02/16/2020 10:5 8 PM CDT 02/16/2020 11:12 PM CDT Jamar Pelaez MD POINT OF CARE TESTIN G Performing Organization Address City/[facility]/ZIP Co de Phone Number [facility] CLIA# [id number] [address] [place] [address] * (ABNORMAL) POC GLUCOSE (02/16/2020 9:57 PM CDT) GLUCOSE POC 140(H) 74 - 99 mg/dL 02/16/2020 9:57 PM CDT [facility] COMMENT, GLU POC Notified RN/ 02/16/2020 9:57 PM CDT [facility] REAL ESTATE APPRAISER NAME POC IVETT TABOR 02/16/2020 9:57 PM CDT [facility] Blood, whole 02/16/2020 9:57 PM CDT 02/16/2020 10:04 PM CDT Jamar Pelaez MD POINT OF CARE TESTIN G [facility] CLIA# [id number] [address] [place] [address] * (ABNORMAL) POC GLUCOSE (02/16/2020 8:57 PM CDT) GLUCOSE POC 125(H) 74 - 99 mg/dL 02/16/2020 8:57 PM CDT [facility] SERVICES [facility] REAL ESTATE APPRAISER NAME POC RONEY MORELAND 02/16/2020 8:57 PM CDT [facility] Blood, whole 02/16/2020 8:57 PM CDT 02/16/2020 9:09 PM CDT Jamar Pelaez MD POINT OF CARE TESTIN Performing Organization Address [facility]/ZIP Co de Phone Number [facility] CLIA# [id number] [address] [place] [address] * (ABNORMAL) POC GLUCOSE (02/16/2020 7:51 PM CDT) GLUCOSE POC 135(H) 74 - 99 mg/dL 02/16/2020 7:51 PM CDT [facility] COMMENT, GLU POC Notified RN/MD 02/16/2020 7:51 PM CDT [facility] REAL ESTATE APPRAISER NAME POC IVETT TABOR 02/16/2020 7:51 PM CDT [facility] Blood, whole 02/16/2020 7:51 PM CDT 02/16/2020 7:59 PM CDT Jamar Pelaez MD POINT OF CARE TESTJERONIMO Serrano Performing Organization Address [facility] Co de Phone Number [facility] CLIA# [id number] [address] [facility] [place] [address] * (ABNORMAL) POC GLUCOSE (02/16/2020 6:55 PM CDT) GLUCOSE POC 142(H) 74 - 99 mg/dL 02/16/2020 6:55 PM CDT [facility] SERVICES [facility] REAL ESTATE APPRAISER NAME POC JANIE ELIZABETH 02/16/2020 6:55 PM CDT [facility] Blood, whole 02/16/2020 6:55 PM CDT 02/16/2020 7:04 PM CDT Jamar Pelaez MD POINT OF CARE TESTIN Maggie Performing Organization Address City/[facility]/ZIP Co de Phone Number [facility]# [id number] [address] [place] [address] * (ABNORMAL) POC GLUCOSE (02/16/2020 5:59 PM CDT) GLUCOSE POC 127(H) 74 - 99 mg/dL 02/16/2020 5:59 PM CDT [facility] REAL ESTATE APPRAISER NAME JANIE WETZEL 02/16/2020 5:59 PM CDT [facility] SERVICES [facility] Blood, whole 02/16/2020 5:59 PM CDT 02/16/2020 6:07 PM CDT Jamar Pelaez MD POINT OF CARE TESTJERONIMO Performing Organization Address [facility]/ZIP Co de Phone Number [facility] CLIA# [id number] [address] [place] [address] * (ABNORMAL) POC GLUCOSE (02/16/2020 5:16 PM CDT) GLUCOSE POC 128(H) 74 - 99 mg/dL 02/16/2020 5:16 PM CDT [facility] REAL ESTATE APPRAISER NAME JANIE WETZEL 02/16/2020 5:16 PM CDT [facility] Blood, whole 02/16/2020 5:16 PM CDT 02/16/2020 5:23 PM CDT Jamar Pelaez MD POINT OF CARE TESTIN Performing Organization Address City/[facility]/ZIP Co de Phone Number [facility] [id number] [address] [place] [address] * (ABNORMAL) POC GLUCOSE (02/16/2020 4:13 PM CDT) GLUCOSE POC 139(H) 74 - 99 mg/dL 02/16/2020 4:13 PM CDT [facility] COMMENT, GLU POC Notified RN/ 02/16/2020 4:13 PM CDT [facility] REAL ESTATE APPRAISER NAME POC ELIGIO MARTIN 02/16/2020 4:13 PM CDT [facility] Blood, whole 02/16/2020 4:13 PM CDT 02/16/2020 4:20 PM CDT Jamar Pelaez MD POINT OF CARE TESTIN G Performing Organization Address [facility]/ZIP Co de Phone Number [facility] CLIA# [id number] [address] [place] [address] * (ABNORMAL) HEMOGLOBIN A1C (02/16/2020 3:24 PM CDT) HEMOGLOBIN A1C 8.6(H) <5.7 % 02/16/2020 4:22 PM CDT [facility] EST. AVG GLUCOSE, A1C 200 mg/dL 02/16/2020 4:22 PM CDT [facility] Blood Venipuncture / Unknown 02/16/2020 3:24 PM CDT 02/16/2020 3:38 PM CDT Narrative [facility] - 02/16/2020 4:22 PM CDT HGB A1C INTERPRETATION NORMAL: ? <5.7% PRE-DIABETES: 5.7 - 6.4% DIABETES: ? 6.5% OR GREATER Jamar Pelaez MD CHEMISTRY ORDERABLES Performing Organization Address [facility]/ZIP Co de Phone Number [facility] [employer] [facility] CLIA# [id number] [address] [place] [address] * (ABNORMAL) POC GLUCOSE (02/16/2020 3:18 PM CDT) GLUCOSE POC 126(H) 74 - 99 mg/dL 02/16/2020 3:18 PM CDT [facility] REAL ESTATE APPRAISER NAME POC DANIELLEDARVINJANIE 02/16/2020 3:18 PM CDT [employer] LABORATORY SERVICES [facility] Blood, whole 02/16/2020 3:18 PM CDT 02/16/2020 3:32 PM CDT Jamar Pelaez MD POINT OF CARE TESTIN Maggie Performing Organization Address [facility]/ZIP Co de Phone Number [facility]# [id number] [address] [place] [address] * (ABNORMAL) POC GLUCOSE (02/16/2020 1:59 PM CDT) GLUCOSE POC 113(H) 74 - 99 mg/dL 02/16/2020 1:59 PM CDT [facility] [employer] [facility] SERVICES [facility] REAL ESTATE APPRAISER NAME POC JANIE ELIZABETH 02/16/2020 1:59 PM CDT [facility] [employer] [facility] SERVICES [facility] Blood, whole 02/16/2020 1:59 PM CDT 02/16/2020 2:08 PM CDT Jmaar Peleaz MD POINT OF CARE TESTIN G Performing Organization Address [facility]/ZIP Co de Phone Number [facility] [employer] [facility]# [id number] [address] [place] [address] * (ABNORMAL) BASIC METABOLIC PANEL (02/16/2020 1:40 PM CDT) SODIUM 138 136 - 145 mmol/L 02/16/2020 4:13 PM CDT [employer] [facility]ORATORY SERVICES [facility] POTASSIUM 3.4(L) 3.5 - 5.0 mmol/L 02/16/2020 4:13 PM CDT [employer] LABORATORY SERVICES [facility] CHLORIDE 106 98 - 107 mmol/L 02/16/2020 4:13 PM CDT [employer] LABORATORY SERVICES [facility] CO2 17(L) 22 - 29 mmol/L 02/16/2020 4:13 PM CDT [employer] LABORATORY SERVICES [facility] CALCIUM 7.5(L) 8.6 - 10.2 mg/dL 02/16/2020 4:13 PM CDT [facility] SERVICES [facility] BUN 3(L) 6 - 20 mg/dL 02/16/2020 4:13 PM CDT [facility] CREATININE 0.41(L) 0.51 - 0.95 mg/dL 02/16/2020 4:13 PM CDT [facility] GLUCOSE 124(H) 74 - 99 mg/dL 02/16/2020 4:13 PM CDT [facility] GFR >60 >=60 mL/min/1.7 3 sq meter 02/16/2020 4:13 PM CDT [facility] Comment: eGFR has [...] 3 sq meter 02/16/2020 4:13 PM CDT [facility] ANION GAP 15 8 - 16 mmol/L 02/16/2020 4:13 PM CDT [facility] Blood Venipuncture / Unknown 02/16/2020 1:40 PM CDT 02/16/2020 1:48 PM CDT Jamar Pelaez MD CHEMISTRY ORDERABLES [facility] [employer] [facility]# [id number] [address] [facility] [place] [address] * (ABNORMAL) POC GLUCOSE (02/16/2020 12:59 PM CDT) GLUCOSE POC 137(H) 74 - 99 mg/dL 02/16/2020 12:59 PM CDT [facility] REAL ESTATE APPRAISER NAME POC JANIE ELIZABETH 02/16/2020 12:59 PM CDT [facility] SERVICES [facility] Blood, whole 02/16/2020 12:5 9 PM CDT 02/16/2020 1:07 PM CDT Jamar Pelaez MD POINT OF CARE TESTIN Maggie [facility] [employer] [facility] CLIA# [id number] [address] [place] [address] * (ABNORMAL) POC GLUCOSE (02/16/2020 12:16 PM CDT) GLUCOSE POC 116(H) 74 - 99 mg/dL 02/16/2020 12:16 PM CDT [facility] REAL ESTATE APPRAISER NAME POC JANIE ELIZABETH 02/16/2020 12:16 PM CDT [facility] Blood, whole 02/16/2020 12:1 6 PM CDT 02/16/2020 12:23 PM CDT Jamar Pelaez MD POINT OF CARE TESTIN Maggie Performing Organization Address [facility]/ZIP Co de Phone Number [facility] [employer] [facility] CLIA# [id number] [address] [place] [address] * (ABNORMAL) POC GLUCOSE (02/16/2020 11:42 AM CDT) GLUCOSE POC 101(H) 74 - 99 mg/dL 02/16/2020 11:42 AM CDT [facility] [employer] [facility] SERVICES [facility] COMMENT, GLU POC Notified RN/MD 02/16/2020 11:42 AM CDT [facility] [employer] [facility]ORY SERVICES [facility] REAL ESTATE APPRAISER NAME POC ELIGIO MARTIN 02/16/2020 11:42 AM CDT [facility] [employer] [facility] SERVICES [facility] Blood, whole 02/16/2020 11:4 2 AM CDT 02/16/2020 12:01 PM CDT Jamar Pelaez MD POINT OF CARE TESTIN G [id number] [address] [place] [address] * POC GLUCOSE (02/16/2020 11:06 AM CDT) GLUCOSE POC 95 74 - 99 mg/dL 02/16/2020 11:06 AM CDT [facility] SERVICES [facility] REAL [employer]STATE APPRAISER NAME POC JANIE ELIZABETH 02/16/2020 11:06 AM CDT [facility] SERVICES [facility] Blood, whole 02/16/2020 11:0 6 AM CDT 02/16/2020 11:22 AM CDT Jamar Pelaez MD POINT OF CARE TESTIN G Performing Organization Address [facility]/ZIP Co de Phone Number [facility] [employer] [facility] CLIA# [id number] [address] [place] [address] * (ABNORMAL) POC GLUCOSE (02/16/2020 10:18 AM CDT) GLUCOSE POC 122(H) 74 - 99 mg/dL 02/16/2020 10:18 AM CDT [facility] SERVICES [facility] COMMENT, GLU POC Notified RN/MD 02/16/2020 10:18 AM CDT [facility] SERVICES [facility] [employer] ESTATE APPRAISER NAME POC ELIGIO MARTIN 02/16/2020 10:18 AM CDT [facility] SERVICES [facility] Blood, whole 02/16/2020 10:1 8 AM CDT 02/16/2020 10:25 AM CDT Jamar Pelaez MD POINT OF CARE TESTJERONIMO G Performing Organization Address City/[facility]/ZIP Co de Phone Number [facility] [employer] [facility]# [id number] [address] [place] [address] * (ABNORMAL) T4 FREE (02/16/2020 9:20 AM CDT) T4 FREE 0.32(L) 0.90 - 1.70 ng/dL 02/16/2020 11:28 AM CDT [facility] Comment:Cleared of chylomicr ons. Blood Venipuncture / Unknown 02/16/2020 9:20 AM CDT 02/16/2020 9:26 AM CDT Jamar Pelaez MD CHEMISTRY ORDERABLES Performing Organization Address [facility] Co de Phone Number [facility] CLIA# [id number] [address] [facility] [place] [address] * (ABNORMAL) TSH REFLEXIVE (02/16/2020 9:20 AM CDT) TSH 20.50(H) 0.27 - 4.20 uIU/mL 02/16/2020 11:28 AM CDT [facility] Comment:Cleared of chylomicr ons. Blood Venipuncture / Unknown 02/16/2020 9:20 AM CDT 02/16/2020 9:26 AM CDT Jamar Pelaez MD CHEMISTRY ORDERABLES Performing Organization Address [facility] Phone Number [facility] [employer] [facility] CLIA# [id number] [address] [facility] [place] [address] * (ABNORMAL) COMPREHENSIVE METABOLIC PANEL (02/16/2020 9:20 AM CDT) SODIUM 134(L) 136 - 145 mmol/L 02/16/2020 11:27 AM CDT [facility] Comment:Cleared of chylomicr ons. POTASSIUM 3.6 3.5 - 5.0 mmol/L 02/16/2020 11:27 AM CDT [facility] Comment:Cleared of chylomicr ons. CHLORIDE 99 98 - 107 mmol/L 02/16/2020 11:27 AM CDT [facility] Comment:Cleared of chylomicr ons. CO2 22 22 - 29 mmol/L 02/16/2020 11:27 AM CDT [facility] Comment:Cleared of chylomicr ons. CALCIUM 8.1(L) 8.6 - 10.2 mg/dL 02/16/2020 11:27 AM [facility] Comment:Cleared of chylomicr ons. BUN 4(L) 6 - 20 mg/dL 02/16/2020 11:27 AM [facility] Comment:Cleared of chylomicr ons. CREATININE 0.39(L) 0.51 - 0.95 mg/dL 02/16/2020 11:27 AM [facility] Comment:Cleared of chylomicr ons. GLUCOSE 121(H) 74 - 99 mg/dL 02/16/2020 11:27 AM [facility] Comment:Cleared of chylomicr ons. TOTAL PROTEIN 6.3(L) 6.7 - 8.6 g/dL 02/16/2020 11:27 AM [facility] Comment:Cleared of chylomicr ons. ALBUMIN 3.6 3.5 - 5.2 g/dL 02/16/2020 11:27 AM [facility] Comment:Cleared of chylomicr ons. BILIRUBIN TOTAL <0.2(L) 0.3 - 1.2 mg/dL 02/16/2020 11:27 AM [facility] Comment:Cleared of chylomicr ons. ALKALINE PHOSPHATASE 81 35 - 104 U/L 02/16/2020 11:27 AM [facility] Comment:Cleared of chylomicr ons. AST 02/16/2020 11:27 AM [facility] Comment: Unable to result due to lipemia. Unable to evaluate due to lipemia. ALT 02/16/2020 11:27 AM [facility] Comment: Unable to result due to lipemia. Unable to evaluate due to lipemia. GFR >60 >=60 mL/min/1.7 3 sq meter 02/16/2020 11:27 AM [facility] Comment: eGFR has not been [...] 3 sq meter 02/16/2020 11:27 AM CDT [facility] [employer] [facility] ANION GAP 13 8 - 16 mmol/L 02/16/2020 11:27 AM CDT [facility] Blood Venipuncture / Unknown 02/16/2020 9:20 AM CDT 02/16/2020 9:26 AM CDT [facility] [employer] [facility] - 02/16/2020 11:27 AM CDT Samples containing indocyanine green cause interferences on Total and/or Direct Bilirubin and must not be measured. Loki Vences MD CHEMISTRY ORDERABLES [facility]# [id number] [address] [place] [address] * (ABNORMAL) TRIGLYCERIDE (02/16/2020 9:20 AM CDT) TRIGLYCERIDE >4,425(H) <150 mg/dL 02/16/2020 10:49 AM CDT [facility] Blood Venipuncture / Unknown 02/16/2020 9:20 AM CDT 02/16/2020 9:26 AM CDT [facility] [employer] [facility] - 02/16/2020 10:49 AM CDT TRIGLYCERIDES ? mg/dL Normal ?< 150 Borderline High ?150 - 199 High ? 200 - 499 Very High ? >= 500 Based on AHA/NCEP Guidelines. Loki Vences MD CHEMISTRY ORDERABLES Performing Organization Address [facility]/ZIP Co de Phone Number [facility]# [id number] [address] [place] [address] * (ABNORMAL) POC GLUCOSE (02/16/2020 9:11 AM CDT) GLUCOSE POC 124(H) 74 - 99 mg/dL 02/16/2020 9:11 AM CDT [facility] [employer]STATE APPRAISER NAME JANIE WETZEL 02/16/2020 9:11 AM CDT [facility] Blood, whole 02/16/2020 9:11 AM CDT 02/16/2020 9:27 AM CDT Jamar Pelaez MD POINT OF CARE TESTJERONIMO Serrano Performing Organization Address [facility] Co [place] Phone Number [facility] [employer] [facility]# [id number] [address] [place] [address] * (ABNORMAL) POC GLUCOSE (02/16/2020 7:51 AM CDT) GLUCOSE POC 131(H) 74 - 99 mg/dL 02/16/2020 7:51 AM CDT [facility] COMMENT, GLU POC Notified RN/MD 02/16/2020 7:51 AM CDT [facility] [employer] APPRAISER NAME JANIE WETZEL 02/16/2020 7:51 AM CDT [facility] [place] [facility] Blood, whole 02/16/2020 7:51 AM CDT 02/16/2020 8:02 AM CDT Jamar Pelaez MD POINT OF CARE TESTIN Maggie Performing Organization Address [facility] Co de Phone Number [facility]# [id number] [address] [place] [address] * (ABNORMAL) POC GLUCOSE (02/16/2020 7:18 AM CDT) GLUCOSE POC 139(H) 74 - 99 mg/dL 02/16/2020 7:18 AM CDT [facility] REAL ESTATE APPRAISER NAME BROWN DANIEL 02/16/2020 7:18 AM CDT [facility] Blood, whole 02/16/2020 7:18 AM CDT 02/16/2020 7:25 AM CDT Matteo Lyn MD POINT OF CARE [place]TEGA Performing Organization Address [facility]/ZIP Co de Phone Number [facility] [employer] [facility] CLIA# [id number] [address] [place] [address] * (ABNORMAL) POC GLUCOSE (02/16/2020 6:51 AM CDT) GLUCOSE POC 131(H) 74 - 99 mg/dL 02/16/2020 6:51 AM CDT [facility] REAL ESTATE APPRAISER NAME BROWN DANIEL 02/16/2020 6:51 AM CDT [facility] Blood, whole 02/16/2020 6:51 AM CDT 02/16/2020 7:00 AM CDT Matteo Lyn MD POINT OF CARE [place]ILVIANO ORTEGA Performing Organization Address City/[facility]/ZIP Co de Phone Number [facility] [employer] [facility] CLIA# [id number] [address] [place] [address] * POC GLUCOSE (02/16/2020 6:19 AM CDT) GLUCOSE POC 77 74 - 99 mg/dL 02/16/2020 6:19 AM CDT [facility] REAL ESTATE APPRAISER NAME BROWN DANIEL 02/16/2020 6:19 AM CDT [facility] Blood, whole 02/16/2020 6:19 AM CDT 02/16/2020 6:49 AM CDT Matteo Lyn MD POINT OF CARE SILVIANO IRLANDA [facility] CLIA# [id number] [address] [place] [address] * (ABNORMAL) MANUAL DIFFERENTIAL (02/16/2020 5:21 AM CDT) SEGMENTED NEUTROPHILS 78 % 02/16/2020 7:11 AM CDT [employer] [facility] - [facility] BANDS RELATIVE 1 0 - 5 % 02/16/2020 7:11 AM CDT [facility] [employer] [facility] LYMPHOCYTES RELATIVE 12 % 02/16/2020 7:11 AM CDT [facility] ATYPICAL LYMPHOCYTES RELATIVE 3 0 - 5 % 02/16/2020 7:11 AM CDT [facility] MONOCYTES RELATIVE 6 % 02/16/2020 7:11 AM CDT [employer] [facility] - [facility] NEUTROPHILS ABSOLUTE COUNT 13.84(H) 1.90 - 7.00 K/uL 02/16/2020 7:11 AM CDT [facility] LYMPHOCYTES ABSOLUTE 2.07 0.70 - 4.50 K/uL 02/16/2020 7:11 AM CDT [facility] MONOCYTES ABSOLUTE 1.11 0.10 - 1.30 K/uL 02/16/2020 7:11 AM CDT [facility] TOTAL CELLS COUNTED IN DIFF 110 02/16/2020 7:11 AM CDT [facility] [employer] [facility] RBC MORPHOLOGY abnormal 02/16/2020 7:11 AM CDT [employer] [facility] - . [facility] PLATELET EST. Consistent w Count 02/16/2020 7:11 AM CDT [employer] [facility] - . [facility] ANISOCYTOSIS 1+ /hpf 02/16/2020 7:11 AM CDT [facility] [employer] [facility] Blood Venipuncture / Unknown 02/16/2020 5:21 AM CDT 02/16/2020 5:30 AM CDT Loki Vences MD HEMATOLOGY ORDERABLE S COM Performing Organization Address City/[facility]/ZIP Co de Phone Number [facility] [employer] [facility] CLIA# [id number] [address] [place] [address] * (ABNORMAL) POC GLUCOSE (02/16/2020 5:21 AM CDT) GLUCOSE POC 152(H) 74 - 99 mg/dL 02/16/2020 5:21 AM CDT [facility] REAL ESTATE APPRAISER NAME POC BROWN REED 02/16/2020 5:21 AM CDT [facility] [employer] [facility] Blood, whole 02/16/2020 5:21 AM CDT 02/16/2020 5:28 AM CDT Matteo Lyn MD POINT OF CARE [facility] Performing Organization Address [facility]/ZIP Co de Phone Number [facility] [employer] [facility] CLIA# [id number] [address] [place] [address] * (ABNORMAL) CBC WITH DIFFERENTIAL (02/16/2020 5:21 AM CDT) WBC 17.5(H) 4.0 - 9.8 K/uL 02/16/2020 6:37 AM [facility] [employer] [facility] RBC 4.21 3.90 - 4.90 M/uL 02/16/2020 6:37 AM T [facility] HEMOGLOBIN 11.7(L) 11.8 - 14.8 g/dL 02/16/2020 6:37 AM T [facility] Comment:Results corrected fo r elevated lipids. HEMATOCRIT 37.8 35.5 - 44.0 % 02/16/2020 6:37 AM T [facility] MCV 89.8 82.0 - 99.0 fL 02/16/2020 6:37 AM [facility] MCH 36.4(H) 27.2 - 32.6 pg 02/16/2020 6:37 AM T [facility] Comment:Results corrected fo r elevated lipids. MCHC 31.0(L) 31.5 - 35.5 g/dL 02/16/2020 6:37 AM CDT [facility] Comment:Results corrected fo r elevated lipids. RDW 14.4 11.5 - 14.5 % 02/16/2020 6:37 AM CDT [facility] RDW-STDEV 46.4 37.1 - 48.7 fL 02/16/2020 6:37 AM CDT [facility] PLATELETS 353(H) 140 - 350 K/uL 02/16/2020 6:37 AM CDT [facility] MPV 9.0(L) 9.3 - 12.4 fL 02/16/2020 6:37 AM CDT [facility] Blood Venipuncture / Unknown 02/16/2020 5:21 AM CDT 02/16/2020 5:30 AM CDT Loki Vences MD HEMATOLOGY ORDERABLE S [facility] CLIA# [id number] [address] [place] [address] * (ABNORMAL) POC GLUCOSE (02/16/2020 4:17 AM CDT) [facility] GLUCOSE POC 102(H) 74 - 99 mg/dL 02/16/2020 4:17 AM CDT [facility] REAL ESTATE APPRAISER NAME POC BROWN REED 02/16/2020 4:17 AM CDT [facility] Blood, whole 02/16/2020 4:17 AM CDT 02/16/2020 4:24 AM CDT Matteo Lyn MD POINT OF CARE SILVIANO ORTEGA [facility] CLIA# [id number] [address] [place] [address] * (ABNORMAL) POC GLUCOSE (02/16/2020 3:44 AM CDT) GLUCOSE POC 106(H) 74 - 99 mg/dL 02/16/2020 3:44 AM CDT [facility] REAL ESTATE APPRAISER NAME BROWN DANIEL 02/16/2020 3:44 AM CDT [facility] Blood, whole 02/16/2020 3:44 AM CDT 02/16/2020 3:50 AM CDT Matteo Lyn MD POINT OF CARE SILVIANO ORTEGA Performing Organization Address [facility]/State/ZIP Co de Phone Number [facility] [employer] [facility] CLIA# [id number] [address] [place] [address] * (ABNORMAL) POC GLUCOSE (02/16/2020 3:06 AM CDT) GLUCOSE POC 107(H) 74 - 99 mg/dL 02/16/2020 3:06 AM CDT [facility] REAL ESTATE APPRAISER NAME BROWN DANIEL 02/16/2020 3:06 AM CDT [facility] Blood, whole 02/16/2020 3:06 AM CDT 02/16/2020 3:14 AM CDT Matteo Lyn MD POINT OF CARE SILVIANO ORTEGA [facility] [employer] [facility] CLNV# [id number] [address] [place] [address] * POC GLUCOSE (02/16/2020 2:30 AM CDT) GLUCOSE POC 93 74 - 99 mg/dL 02/16/2020 2:30 AM CDT [facility] REAL ESTATE APPRAISER NAME BROWN DANIEL 02/16/2020 2:30 AM CDT [facility] [employer] [facility] Blood, whole 02/16/2020 2:30 AM CDT 02/16/2020 2:39 AM CDT Matteo Lyn MD POINT OF CARE SILVIANO ORTEGA Performing Organization Address [facility] de Phone Number [facility] [employer] [facility]# [id number] [address] [place] [address] * (ABNORMAL) POC GLUCOSE (02/16/2020 1:05 AM CDT) GLUCOSE POC 150(H) 74 - 99 mg/dL 02/16/2020 1:05 AM CDT [facility] REAL ESTATE APPRAISER NAME POC JOSE GUADALUPE CONLEY 02/16/2020 1:05 AM CDT [facility] [employer] [facility] Blood, whole 02/16/2020 1:05 AM CDT 02/16/2020 1:19 AM CDT Matteo Lyn MD POINT OF CARE SILVIANO ORTEGA Performing Organization Address [facility] de Phone Number [facility] [employer] [facility]# [id number] [address] [place] [address] * (ABNORMAL) BASIC METABOLIC PANEL (02/16/2020 12:45 AM CDT) SODIUM 134(L) 136 - 145 mmol/L 02/16/2020 2:06 AM CDT [facility] [employer] [facility] POTASSIUM 02/16/2020 2:06 AM CDT [facility] [employer] [facility] Comment:Test cannot be perfo rmed due to gross hemolysis present. Redraw if indicated. CHLORIDE 102 98 - 107 mmol/L 02/16/2020 2:06 AM CDT [facility] [employer] [facility] CO2 20(L) 22 - 29 mmol/L 02/16/2020 2:06 AM T [facility] CALCIUM 7.1(L) 8.6 - 10.2 mg/dL 02/16/2020 2:06 AM CDT [facility] Comment:Significant change f rom prior result, correlate clinically and redraw if necessary. BUN 4(L) 6 - 20 mg/dL 02/16/2020 2:06 AM [facility] CREATININE 0.34(L) 0.51 - 0.95 mg/dL 02/16/2020 2:06 AM [facility] GLUCOSE 171(H) 74 - 99 mg/dL 02/16/2020 2:06 AM [facility] GFR >60 >=60 mL/min/1.7 3 sq meter 02/16/2020 2:06 AM [facility] Comment: eGFR has not been [...] mL/min/1.7 3 sq meter 02/16/2020 2:06 AM [facility] [employer] [facility] ANION GAP 12 8 - 16 mmol/L 02/16/2020 2:06 AM [facility] [employer] [facility] Blood Venipuncture / Unknown 02/16/2020 12:45 AM CDT 02/16/2020 12:58 AM CDT Narrative [facility] - 02/16/2020 2:06 AM CDT Specimen ultracentrifuged to clear it of chylomicrons. Loki Vences MD CHEMISTRY ORDERABLES [facility] [employer] [facility]# [id number] [address] [facility] [address] [address] * LACTIC ACID (02/16/2020 12:45 AM CDT) LACTIC ACID 1.9 <=2.0 mmol/L 02/16/2020 1:53 AM CDT [facility] [employer] [facility] Comment:Cleared of chylomicr ons. Blood Venipuncture / Unknown 02/16/2020 12:45 AM CDT 02/16/2020 12:58 AM CDT Loki Vences MD CHEMISTRY ORDERABLES Performing Organization Address [facility] Co de Phone Number [facility] CLIA# [id number] [address] [place] [address] * (ABNORMAL) POC GLUCOSE (02/15/2020 11:25 PM CDT) GLUCOSE POC 192(H) 74 - 99 mg/dL 02/15/2020 11:25 PM CDT [facility] REAL ESTATE APPRAISER NAME POC JOSE GUADALUPE CONLEY 02/15/2020 11:25 PM CDT [facility] [employer] [facility] Blood, whole 02/15/2020 11:2 5 PM CDT 02/15/2020 11:31 PM CDT Matteo Lyn MD POINT OF CARE SILVIANO TING Performing Organization Address [facility] Co de Phone Number [facility] CLIA# [id number] [address] [place] [address] * CT ABDOMEN PELVIS W CONTRAST (02/15/2020 [...] 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 DICTATION LOCATION: Location 1 - [facility] Narrative 02/15/2020 9:36 PM CDT Exam: CT [...] 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 DICTATION LOCATION: Location 1 - [facility] Matteo Lyn MD CT ORDERABLES * (ABNORMAL) URINALYSIS WITH REFLEX MICROSCOPIC (02/15/2020 8:09 PM CDT) COLOR UA Yellow Pale to Dark Yellow 02/15/2020 8:32 PM CDT [facility] [employer] [facility] CLARITY UA Slightly Cloudy(A) Clear 02/15/2020 8:32 PM CDT [employer] [facility] - [facility] SPECIFIC GRAVITY UA 1.018 1.003 - 1.035 02/15/2020 8:32 PM CDT [employer] [facility] - [facility] PH UA 6.0 5.0 - 8.0 02/15/2020 8:32 PM CDT [employer] [facility] - [facility] LEUKOCYTE ESTERASE UA Negative Negative 02/15/2020 8:32 PM CDT [facility] [employer] [facility] - [facility] NITRITE UA Negative Negative 02/15/2020 8:32 PM CDT [employer] [facility] - [facility] PROTEIN UA 2+(A) Negative 02/15/2020 8:32 PM CDT [employer] [facility] - [facility] GLUCOSE UA 2+(A) Negative 02/15/2020 8:32 PM CDT [employer] [facility] - [facility] KETONES UA Trace(A) Negative 02/15/2020 8:32 PM CDT [employer] [facility] - [facility] UROBILINOGEN UA Normal <2.0 mg/dL 0 8:32 PM CDT [employer] [facility] - [facility] BILIRUBIN UA Negative Negative 02/15/2020 8:32 PM CDT [facility] [employer] [facility] - [facility] BLOOD UA 1+(A) Negative 02/15/2020 8:32 PM CDT [facility] [employer] [facility] - [facility] WBC UA 0-2 0 - 2 /hpf 02/15/2020 8:32 PM CDT [employer] [facility] - . [facility] RBC UA 6-10(A) 0 - 2 /hpf 02/15/2020 8:32 PM CDT [employer] [facility] - [facility] BACTERIA UA 1+(A) Negative /hpf 02/15/2020 8:32 PM CDT [facility] [employer] [facility] - [facility] EPITHELIAL CELLS, URINE 11-25(A) 0 - 5 /hpf 02/15/2020 8:32 PM CDT [employer] [facility] - [facility] Urine URINE SPECIMEN OBTAINED BY CLEAN CATCH PROCEDURE / Unknown Collection / Unknown 02/15/2020 8:09 PM CDT 02/15/2020 8:15 PM CDT Matteo Lyn MD URINE ORDERABLES [facility]# [id number] [address] [place] [address] * (ABNORMAL) TRIGLYCERIDE (02/15/2020 6:21 PM CDT) [facility] TRIGLYCERIDE >4,425(H) <150 mg/dL 02/15/2020 9:26 PM CDT [facility] Blood Venipuncture / Unknown 02/15/2020 6:21 PM CDT 02/15/2020 6:37 PM CDT [facility] LABORATORY [facility] - 02/15/2020 9:26 PM CDT TRIGLYCERIDES ? mg/dL Normal ?< 150 Borderline High ?150 - 199 High ? 200 - 499 Very High ? >= 500 Based on AHA/NCEP Guidelines. Matteo Lyn MD CHEMISTRY ORDERAB LES [facility] [employer] [facility]# [id number] [address] [place] [address] * (ABNORMAL) MANUAL DIFFERENTIAL (02/15/2020 6:21 PM CDT) [facility] SEGMENTED NEUTROPHILS 82 % 02/15/2020 7:18 PM CDT [facility] LYMPHOCYTES RELATIVE 13 % 02/15/2020 7:18 PM CDT [facility] MONOCYTES RELATIVE 3 % 02/15/2020 7:18 PM CDT [facility]. [facility] EOSINOPHILS RELATIVE 1 % 02/15/2020 7:18 PM CDT [facility]. [facility] BASOPHILS RELATIVE 2 % 02/15/2020 7:18 PM CDT [facility]. [facility] NEUTROPHILS ABSOLUTE COUNT 13.50(H) 1.90 - 7.00 K/uL 02/15/2020 7:18 PM CDT [facility]. [facility] LYMPHOCYTES ABSOLUTE 2.10 0.70 - 4.50 K/uL 02/15/2020 7:18 PM CDT [facility] MONOCYTES ABSOLUTE 0.45 0.10 - 1.30 K/uL 02/15/2020 7:18 PM CDT [facility] EOSINOPHILS ABSOLUTE 0.15 0.00 - 0.70 K/uL 02/15/2020 7:18 PM CDT [facility] BASOPHILS ABSOLUTE 0.30(H) 0.00 - 0.20 K/uL 02/15/2020 7:18 PM CDT [facility] - . [facility] TOTAL CELLS COUNTED IN DIFF 110 02/15/2020 7:18 PM CDT [facility] - . [facility] RBC MORPHOLOGY abnormal 02/15/2020 7:18 PM CDT [facility] - . [facility] PLATELET EST. Consistent w Count 02/15/2020 7:18 PM CDT [facility] ANISOCYTOSIS 1+ /hpf 02/15/2020 7:18 PM CDT [facility] - . [facility] POIKILOCYTES 1+ /hpf 02/15/2020 7:18 PM CDT [facility] - [facility] Blood Venipuncture / Unknown 02/15/2020 6:21 PM CDT 02/15/2020 6:36 PM CDT Matteo Lyn MD HEMATOLOGY ORDERA BLES COM [facility] CLIA# [id number] [address] [place] [address] * (ABNORMAL) LIPASE (02/15/2020 6:21 PM CDT) LIPASE 68(H) 13 - 60 U/L 02/15/2020 8:15 PM CDT [facility] Comment:Cleared of chylomicr ons. Blood Venipuncture / Unknown 02/15/2020 6:21 PM CDT 02/15/2020 6:37 PM CDT Matteo Lyn MD CHEMISTRY ORDERAB LES [facility] SERVICES [facility] CLIA# [id number] [address] [place] [address] * (ABNORMAL) COMPREHENSIVE METABOLIC PANEL (02/15/2020 6:21 PM CDT) SODIUM 132(L) 136 - 145 mmol/L 02/15/2020 8:18 PM CDT [facility] POTASSIUM 4.5 3.5 - 5.0 mmol/L 02/15/2020 8:18 PM CDT [facility] Comment:Moderate hemolysis p resent. Can cause significant falsely elevated result. Redraw if indicated. CHLORIDE 92(L) 98 - 107 mmol/L 02/15/2020 8:18 PM CDT [facility] CO2 22 22 - 29 mmol/L 02/15/2020 8:18 PM CDT [facility] SERVICES [facility] CALCIUM 9.2 8.6 - 10.2 mg/dL 02/15/2020 8:18 PM CDT [facility] BUN 5(L) 6 - 20 mg/dL 02/15/2020 8:18 PM CDT [facility] SERVICES [facility] CREATININE 0.41(L) 0.51 - 0.95 mg/dL 02/15/2020 8:18 PM CDT [facility] GLUCOSE 220(H) 74 - 99 mg/dL 02/15/2020 8:18 PM CDT [facility] SERVICES [facility] TOTAL PROTEIN 7.6 6.7 - 8.6 g/dL 02/15/2020 8:18 PM CDT [facility] SERVICES [facility]. [facility] ALBUMIN 4.2 3.5 - 5.2 g/dL 02/15/2020 8:18 PM CDT [facility] SERVICES [facility]. [facility] BILIRUBIN TOTAL 0.3 0.3 - 1.2 mg/dL 02/15/2020 8:18 PM CDT [facility]. [facility] ALKALINE PHOSPHATASE 95 35 - 104 U/L 02/15/2020 8:18 PM CDT [facility] [employer] LABORATORY SERVICES - . [facility] AST 02/15/2020 8:18 PM CDT [employer] [facility] - . [facility] Comment: Hemolysis present. ??Result may be falsely elevated. Cleared of chylomicrons. Unable to evaluate due to lipemia. ALT 02/15/2020 8:18 PM CDT [facility] Comment: Hemolysis present. ??Result may be falsely elevated. Cleared of chylomicrons. Unable to evaluate due to lipemia. GFR >60 >=60 mL/min/1.7 3 sq meter 02/15/2020 8:18 PM CDT [facility] Comment: eGFR has not [...] 3 sq meter 02/15/2020 8:18 PM CDT [facility] ANION GAP 18(H) 8 - 16 mmol/L 02/15/2020 8:18 PM CDT [facility] Blood Venipuncture / Unknown 02/15/2020 6:21 PM CDT 02/15/2020 6:37 PM CDT Narrative [facility] - 02/15/2020 8:18 PM CDT Specimen ultracentrifuged to be cleared of chylomicrons. Unable to result AST/ALT due to high lipemia. Samples containing indocyanine green cause interferences on Total and/or Direct Bilirubin and must not be measured. Matteo Lyn MD CHEMISTRY ORDERAB LES [facility] CLIA# [id number] [address] [facility] [address] [address] * (ABNORMAL) CBC WITH DIFFERENTIAL (02/15/2020 6:21 PM CDT) WBC 16.1(H) 4.0 - 9.8 K/uL 02/15/2020 7:58 PM CDT [employer] [facility] RBC 4.12 3.90 - 4.90 M/uL 02/15/2020 7:58 PM CDT [employer] [facility] - [facility] Comment:Results corrected fo r elevated lipids. HEMOGLOBIN 12.5 11.8 - 14.8 g/dL 02/15/2020 7:58 PM CDT [employer] [facility] - [facility] Comment:Results corrected fo r elevated lipids. HEMATOCRIT 41.5 35.5 - 44.0 % 02/15/2020 7:58 PM CDT [employer] [facility] - [facility] MCV 89.1 82.0 - 99.0 fL 02/15/2020 7:58 PM CDT [facility] [employer] [facility] - [facility] MCH 26.8(L) 27.2 - 32.6 pg 02/15/2020 7:58 PM CDT [facility] [employer] [facility] - [facility] Comment:Results corrected fo r elevated lipids. MCHC 30.1(L) 31.5 - 35.5 g/dL 02/15/2020 7:58 PM CDT [facility] - [facility] Comment:Results corrected fo r elevated lipids. RDW 14.2 11.5 - 14.5 % 02/15/2020 7:58 PM CDT [facility] [employer] [facility] - [facility] RDW-STDEV 45.3 37.1 - 48.7 fL 02/15/2020 7:58 PM CDT [facility] [employer] [facility] PLATELETS 320 140 - 350 K/uL 02/15/2020 7:58 PM CDT [facility] MPV 10.2 9.3 - 12.4 fL 02/15/2020 7:58 PM CDT [facility] NEUTROPHILS 79 % 02/15/2020 7:58 PM CDT [facility] LYMPHOCYTES 11 % 02/15/2020 7:58 PM CDT [facility] MONOCYTES 9 % 02/15/2020 7:58 PM CDT [facility] EOSINOPHILS 1 % 02/15/2020 7:58 PM CDT [facility] BASOPHILS 0 % 02/15/2020 7:58 PM CDT [facility] IMMATURE GRANULOCYTES 1 % 02/15/2020 7:58 PM CDT [facility] - [facility] Comment:IG (Immature Granulo cyte) count includes Metamyelocytes, Myelocytes, and Promyelocytes NEUTROPHIL ABSOLUTE 12.68(H) 1.90 - 7.00 K/uL 02/15/2020 7:58 PM CDT [facility] - . [facility] LYMPHOCYTE ABSOLUTE 1.71 0.70 - 4.50 K/uL 02/15/2020 7:58 PM CDT [facility] - . [facility] MONOCYTE ABSOLUTE 1.43(H) 0.10 - 1.30 K/uL 02/15/2020 7:58 PM CDT [facility] - . [facility] EOSINOPHIL ABSOLUTE 0.13 0.00 - 0.70 K/uL 02/15/2020 7:58 PM CDT [facility] - . [facility] BASOPHILS ABSOLUTE 0.05 0.00 - 0.20 K/uL 02/15/2020 7:58 PM CDT [facility] IMMATURE GRANULOCYTES ABSOLUTE 0.11(H) 0.00 - 0.03 K/uL 02/15/2020 7:58 PM CDT [facility] Blood Venipuncture / Unknown 02/15/2020 6:21 PM CDT 02/15/2020 6:36 PM CDT Matteo Lyn MD HEMATOLOGY ORDERA BLES [facility]# [id number] [address] [place] [address] [place] [address] documented in this encounter Visit Diagnoses Diagnosis [...] Until Discontinued, Routine Given 02/28/2020 12:17 PM RESPIRATORY THERAPIST 1,000.6158 mg Given 02/28/2020 5:41 AM RESPIRATORY THERAPIST 1,000.6158 mg Given 02/27/2020 8:42 PM CDT [...] Until Discontinued, Routine Given 02/29/2020 12:00 PM RESPIRATORY THERAPIST 1,000 mg Given 02/29/2020 6:18 AM RESPIRATORY THERAPIST 1,000 mg Given 02/28/2020 9:21 PM RESPIRATORY THERAPIST 1,000 mg acetaminophen (TYLENOL) tablet 650 mg [...] Until Discontinued, Routine Given 02/28/2020 9:21 PM RESPIRATORY THERAPIST 80 mg bisacodyL (DULCOLAX) rectal suppository 10 [...] Until Discontinued, Routine Given 02/28/2020 9:21 PM RESPIRATORY THERAPIST 40 mg dextrose 5 % in water [...] Until Discontinued, Routine Given 02/29/2020 10:18 AM RESPIRATORY THERAPIST 20 mg Given 02/29/2020 6:18 AM RESPIRATORY THERAPIST 20 mg Given 02/28/2020 4:32 PM RESPIRATORY THERAPIST 20 mg enoxaparin (LOVENOX) injection 40 mg 40 mg, subCUT, DAILY, First dose on Sat02/16/20 at 0900, Until Discontinued, Routine, Indication: Prophylaxis of VTE, Dose to be adjusted per facility protocol? Yes Given 02/29/2020 10:20 AM RESPIRATORY THERAPIST 40 mg Abdomen, Right Lower Quadrant Given 02/28/2020 9:17 AM RESPIRATORY THERAPIST 40 mg Ab dominal Tissue Given 02/27/2020 [...] Until Discontinued, Routine Given 02/28/2020 9:18 AM RESPIRATORY THERAPIST 160 mg Given 02/27/2020 8:51 AM CDT 160 mg fenofibrate (LOFIBRA) tablet 160 mg 160 mg, Oral, DAILY, First dose (after last modification) on 02/29/20 at 0900, Until Discontinued, Routine Given 02/29/2020 10:18 AM RESPIRATORY THERAPIST 160 mg flu vaccine quadrivalent (6 mo+)(PF) [...] Until Discontinued, Routine Given 02/28/2020 12:17 PM RESPIRATORY THERAPIST 200 mg Given 02/28/2020 5:40 AM RESPIRATORY THERAPIST 200 mg Given 02/27/2020 8:46 PM CDT 200 mg gabapentin (NEURONTIN) capsule 200 mg 200 mg, Oral, EVERY 8 HOURS, First dose (after last modification) on Sat02/28/20 at 2100, Until Discontinued, Routine Given 02/29/2020 6:18 AM RESPIRATORY THERAPIST 200 mg Given 02/28/2020 9:21 PM RESPIRATORY THERAPIST 200 mg glucagon HCL 1 mg/mL injection [...] IV, ONE TIME ONLY, 1 dose, On Aktie 02/18/20 at 1000, Routine, Please tube to [...] Until Discontinued, Routine Given 02/28/2020 9:19 AM RESPIRATORY THERAPIST 12 Units Arm, Right Upper Given 02/27/2020 12:35 PM CDT 12 Units D eltoid, Right insulin glargine (LANTUS) injection 12 Units 12 Units, subCUT, DAILY, First dose (after last modification) on 02/29/20 at 1030, Until Discontinued, Routine Given 02/29/2020 11:53 AM RESPIRATORY THERAPIST 12 Units Arm, Right insulin glargine (LANTUS) [...] Until Discontinued, Routine Given 02/28/2020 1:00 PM RESPIRATORY THERAPIST 3 Units Arm, Left Upper Given 02/28/2020 9:19 AM RESPIRATORY THERAPIST 1 Units Ar m, Right Upper insulin [...] Until Discontinued, Routine Given 02/28/2020 4:46 AM RESPIRATORY THERAPIST 3 Units Arm, Left Upper Given 02/28/2020 12:42 AM CDT 2 Units A rm, Right Upper Given 02/27/2020 8:40 PM CDT 3 Units Ar m, Right Upper insulin lispro (HumaLOG) injection 3 Units 3 Units, subCUT, THREE TIMES DAILY WITH MEALS, First dose on Sat02/28/20 at 0745, Until Discontinued, Routine Given 02/28/2020 4:27 PM RESPIRATORY THERAPIST 3 Units Abdominal Tissue Given 02/28/2020 1:00 PM RESPIRATORY THERAPIST 3 Units Ar m, Left Upper Given 02/28/2020 9:19 AM RESPIRATORY THERAPIST 3 Units Ar m, Right Upper insulin lispro (HumaLOG) injection 4 Units 4 Units, subCUT, THREE TIMES DAILY WITH MEALS, First dose (after last modification) on Sat02/29/20 at 1030, Until Discontinued, Routine Given 02/29/2020 11:55 AM RESPIRATORY THERAPIST 4 Units Arm, Right insulin regular (HUMULIN [...] reflux disease (GERD) Given 02/28/2020 9:00 AM RESPIRATORY THERAPIST 30 mg Given 02/27/2020 8:50 PM CDT [...] Until Discontinued, Routine Given 02/29/2020 6:18 AM RESPIRATORY THERAPIST 200 mcg Given 02/28/2020 5:41 AM RESPIRATORY THERAPIST 200 mcg Given 02/27/2020 5:20 AM CDT 200 mcg rnjpci-aacyyhfi-lwzzqxz DR TING) 12,000-38,000-60,000 unit per capsule 2 Capsule 2 Capsule, Oral, THREE TIMES DAILY WITH MEALS, First dose on 02/27/20 at 1430, Until Discontinued, Routine Given 02/29/2020 11:58 AM RESPIRATORY THERAPIST 2 Capsule s Given 02/29/2020 10:18 AM RESPIRATORY THERAPIST 2 Capsules Given 02/28/2020 4:30 PM RESPIRATORY THERAPIST 2 Capsules magnesium sulfate in water 2 [...] Until Discontinued, Routine Given 02/28/2020 9:21 PM RESPIRATORY THERAPIST 25 mg Given 02/27/2020 11:00 PM CDT [...] Until Discontinued, Routine Given 02/28/2020 5:19 PM RESPIRATORY THERAPIST 10 mg Given 02/28/2020 12:17 PM RESPIRATORY THERAPIST 10 mg Given 02/28/2020 5:44 AM RESPIRATORY THERAPIST 10 mg oxyCODONE (ROXICODONE) tablet 10 mg [...] Until Discontinued, Routine Given 02/29/2020 6:18 AM RESPIRATORY THERAPIST 5 mg Given 02/29/2020 12:54 AM RESPIRATORY THERAPIST 5 mg oxyCODONE (ROXICODONE) tablet 5 mg 5 mg, Oral, EVERY 6 HOURS PRN, Starting on Sat02/29/20 at 1100, Until Sat02/29/20 at 1602, Pain (See admin instructions), Routine Given 02/29/2020 12:00 PM RESPIRATORY THERAPIST 5 mg pantoprazole (PROTONIX) tablet 40 mg [...] reflux disease (GERD) Given 02/29/2020 10:18 AM RESPIRATORY THERAPIST 40 mg Given 02/28/2020 9:21 PM RESPIRATORY THERAPIST 40 mg polyethylene glycol (MIRALAX) packet 17 [...] Until Discontinued, Routine Given 02/29/2020 10:19 AM RESPIRATORY THERAPIST 5 mL Given 02/28/2020 9:24 PM RESPIRATORY THERAPIST 5 mL Given 02/28/2020 12:18 PM RESPIRATORY THERAPIST 5 mL sodium chloride flush injection 5 mL 5 mL, IV, SEE ADMIN INSTRUCTIONS, Starting on Sat02/19/20 at 0746, Until Sat02/29/20 at 1602, Routine thiamine (VITAMIN B-1) 100 mg in sodium chloride 0.9% 100 mL IVPB 100 mg, IV, DAILY, 5 doses, First dose on Sat02/24/20 at 1130, Last dose on Sat02/28/20 at 0900, Routine New Bag 02/28/2020 2:43 PM RESPIRATORY THERAPIST 100 mg 116 mL/hr New Bag 02/27/2020 [...] 1602, Insomnia, Routine Given 02/28/2020 10:14 PM RESPIRATORY THERAPIST 100 mg water sterile injection See Admin Instructions, ONE TIME ONLY, 1 dose, On Sat02/16/20 at 1100, Routine Given 02/16/2020 11:18 AM CDT 10 mL Other (Comment) documented in this encounter Active and Recently Administered Medications Due to Daylight Saving Time, this section may contain times in both CDT and RESPIRATORY THERAPIST. Scheduled Medication Order 02/27/2020 02/28/2020 02/29/2020 acetaminophen [...] RN - Reason: Lab results - Comment: [id number]) insulin lispro (HumaLOG) injection 0-4 Units 0-4 [...] - Comment: [phone] (Given - Provider: Erin Herndon, CLAU) insulin lispro (HumaLOG) injection 3 [...] 0618 (Given - Provider: Betty Davis, CLAU) ywpiku-rwzehven-lfmwyst DR (CREON) 12,000-38,000-60,000 unit per capsule 2 [...] Provider: Harvey Littlejohn RN)0952 (Stopped - Provider: Hravey Littlejohn RN) 1443 (New Bag - Provider: [...] RN) documented in this encounter Care Teams Salesperson Furs Relationship Specialty Start Date End Date Guerrero Middleton PA-C PCP - General Physician Chief Risk Officer 02/13/18 documented as of this encounter
--- OUTSIDE RECORDS SUMMARY | 2024-05-03 21:54 | XMS_ITS | Encounter Summary ---
Author Organization [facility] Address [address] [place] [address] Care Team Providers Care Kapok And Cotton Machine Operator Name Role Phone Guerrero Middleton PA-C Primary Care Provide r Encounter Details Date Type Department Care Team (Latest Contact Info) Description 01/27/2020 10:00 AM CDT - 01/27/2020 11:59 PM CDT Hospital Encounter [facility] Donor Services [address] [phone] Alize Arteaga MD NO ADDRESS ON FILE [...] [facility] - [facility] [address] [place] [address] Marlys Mayer MD [address] [place] [address] documented as of this encounter Procedures Procedure Name Priority Date/Time Associated Diagnosis Comments CBC WITH DIFFERENTIAL Routine 01/27/2020 9:40 AM CDT Hypertriglyceridemi a TRIGLYCERIDE Routine 01/27/2020 9:40 AM CDT Hypertriglyceridemi a documented in this encounter Results * (ABNORMAL) CBC WITH DIFFERENTIAL (01/27/2020 9:40 AM CDT) WBC 10.1(H) 4.0 - 9.8 K/uL 01/27/2020 10:07 AM CDT [facility] SERVICES - [facility] RBC 4.76 3.90 - 4.90 M/uL 01/27/2020 10:07 AM CDT [facility] - [facility] HEMOGLOBIN 14.2 11.8 - 14.8 g/dL 01/27/2020 10:07 AM CDT [facility] - [facility] HEMATOCRIT 42.7 35.5 - 44.0 % 01/27/2020 10:07 AM CDT [facility] SERVICES - [facility] MCV 89.7 82.0 - 99.0 fL 01/27/2020 10:07 AM [employer] LABORATORY SERVICES - [facility] MCH 29.8 27.2 - 32.6 pg 01/27/2020 10:07 AM [employer] LABORATORY SERVICES - [facility] MCHC 33.3 31.5 - 35.5 g/dL 01/27/2020 10:07 AM [employer] LABORATORY SERVICES - [facility] RDW 13.2 11.5 - 14.5 % 01/27/2020 10:07 AM [employer] LABORATORY SERVICES - [facility] RDW-STDEV 43.5 37.1 - 48.7 fL 01/27/2020 10:07 AM [employer] LABORATORY SERVICES - [facility] PLATELETS 213 140 - 350 K/uL 01/27/2020 10:07 AM [employer] LABORATORY SERVICES - [facility] MPV 9.5 9.3 - 12.4 fL 01/27/2020 10:07 AM [employer] [facility]ORATORY SERVICES - [facility] NEUTROPHILS 68 % 01/27/2020 10:07 AM [employer] LABORATORY SERVICES - [facility] LYMPHOCYTES 24 % 01/27/2020 10:07 AM [employer] LABORATORY SERVICES - [facility] MONOCYTES 7 % 01/27/2020 10:07 AM [employer] [facility]ORATORY SERVICES - [facility] EOSINOPHILS 1 % 01/27/2020 10:07 AM [employer] LABORATORY SERVICES - [facility] BASOPHILS 0 % 01/27/2020 10:07 AM [employer] LABORATORY SERVICES - [facility] IMMATURE GRANULOCYTES 1 % 01/27/2020 10:07 AM [employer] [facility]ORATORY SERVICES - [facility] Comment:IG (Immature Granulo cyte) count includes Metamyelocytes, Myelocytes, and Promyelocytes NEUTROPHIL ABSOLUTE 6.85 1.90 - 7.00 K/uL 01/27/2020 10:07 AM [employer] LABORATORY SERVICES - . [facility] LYMPHOCYTE ABSOLUTE 2.42 0.70 - 4.50 K/uL 01/27/2020 10:07 AM [employer] LABORATORY SERVICES - . [facility] MONOCYTE ABSOLUTE 0.66 0.10 - 1.30 K/uL 01/27/2020 10:07 AM [employer] LABORATORY SERVICES - . [facility] EOSINOPHIL ABSOLUTE 0.07 0.00 - 0.70 K/uL 01/27/2020 10:07 AM [employer] LABORATORY SERVICES - [facility] BASOPHILS ABSOLUTE 0.03 0.00 - 0.20 K/uL 01/27/2020 10:07 AM CDT [facility] SERVICES - [facility] IMMATURE GRANULOCYTES ABSOLUTE 0.07(H) 0.00 - 0.03 K/uL 01/27/2020 10:07 AM CDT [facility] - [facility] Blood Venipuncture / Unknown 01/27/2020 9:40 AM CDT 01/27/2020 10:01 AM CDT Melanie Carias MD HEMATOLOGY ORDERABLE S [facility]# [id number] [address] [place] [address] * (ABNORMAL) TRIGLYCERIDE (01/27/2020 9:40 AM CDT) TRIGLYCERIDE 632(H) <150 mg/dL 01/27/2020 12:03 PM CDT [facility] [employer] [facility] Blood Venipuncture / Unknown 01/27/2020 9:40 AM CDT 01/27/2020 10:01 AM CDT Narrative [facility] LAB[facility] - 01/27/2020 12:03 PM CDT TRIGLYCERIDES ? mg/dL Normal ?< 150 Borderline High ?150 - 199 High ? 200 - 499 Very High ? >= 500 Based on AHA/NCEP Guidelines. Alize Arteaga MD CHEMISTRY ORDER OSVALDO Performing Organization Address City/[facility]/ZIP Co de Phone Number [facility]# [id number] [address] [place] [address] documented in this encounter Visit Diagnoses Diagnosis [...] Units documented in this encounter Care Teams [employer] And Cotton Machine Operator Relationship Specialty Start Date End Date Guerrero Middleton PA-C PCP - General Physician House Builder 02/13/18 documented as of this encounter
--- OUTSIDE RECORDS SUMMARY | 2024-05-03 21:54 | XMS_ITS | Encounter Summary ---
Author Organization [facility] Address [address] Orozco: Epic Prelude ADT [place] [address] Care Team Providers Care Paddock Judge Name Role Phone Guerrero Middleton PA-C Primary [...] often do you attend [facility] or [facility] services? Never 08/21/2018 Do you [...] [facility] [address] [place] [address] Marlys Mayer MD [address] [place] [address] documented as of this encounter Visit Diagnoses Not on filedocumented in this encounter Care Teams Paddock Judge Relationship Specialty Start Date End Date Guerrero Middleton PA-C PCP - General Physician Principal Process Engineer 02/13/18 documented as of this encounter
--- OUTSIDE RECORDS SUMMARY | 2024-05-03 21:54 | XMS_ITS | Encounter Summary ---
Author Organization [facility] Address [address] [place] [address] Care Team Providers Care Division Chair Name Role Phone Guerrero Middleton PA-C Primary Care Provide r Encounter Details Date Type Department Care Team (Latest Contact Info) Description 06/24/2019 9:38 AM PUPPY WALKER - 06/24/2019 11:59 PM [facility] Hospital Encounter [facility] Blood Bank Donor Center [facility] [address] [place] [address] Alize Arteaga MD NO ADDRESS ON FILE [...] Comments Blood Pressure 110/74 06/24/2019 10:30 AM PUPPY WALKER Pulse 94 06/24/2019 10:30 AM PUPPY WALKER Temperature 37 ??C (98.6 ??F) 06/24/2019 10:30 AM PUPPY WALKER Respiratory Rate - - Oxygen Saturation - [...] 1 Tablet (10 mg) by mouth daily sweet pickle maker. 30 Tablet 5 04/08/2019 10/12/2019 levothyroxine 200 [...] appointment scheduled. Pt idalia in stable condition. Y WALKER documented in this encounter Plan of Treatment Upcoming Encounters Date Type Department Care Team (Late st Contact Info) Description 09/14/2024 3:00 PM CDT Office Visit [facility] Heart and Vascular - [facility] [address] [place] [address] Marlys Mayer MD [address] [place] [address] documented as of this encounter Procedures Procedure Name Priority Date/Time Associated Diagnosis Comments CBC WITH DIFFERENTIAL Routine 06/24/2019 9:59 AM PUPPY WALKER Hypertriglyceridemi a TRIGLYCERIDE Routine 06/24/2019 9:59 AM PUPPY WALKER Hypertriglyceridemi a documented in this encounter Results * (ABNORMAL) CBC WITH DIFFERENTIAL (06/24/2019 9:59 AM PUPPY WALKER) WBC 11.0(H) 4.0 - 9.8 K/uL 06/24/2019 10:05 AM PUPPY WALKER [employer] LABORATORY SERVICES - [facility] RBC 5.32(H) 3.90 - 4.90 M/uL 06/24/2019 10:05 AM [facility] [employer] LABORATORY SERVICES - [facility] HEMOGLOBIN 15.5(H) 11.8 - 14.8 g/dL 06/24/2019 10:05 AM PUPPY WALKER [employer] LABORATORY SERVICES - [facility] HEMATOCRIT 47.5(H) 35.5 - 44.0 % 06/24/2019 10:05 AM PUPPY WALKER [employer] LABORATORY SERVICES - [facility] MCV 89.3 82.0 - 99.0 fL 06/24/2019 10:05 AM PUPPY WALKER [employer] LABORATORY SERVICES - [facility] MCH 29.1 27.2 - 32.6 pg 06/24/2019 10:05 AM PUPPY WALKER [employer] LABORATORY SERVICES - [facility] MCHC 32.6 31.5 - 35.5 g/dL 06/24/2019 10:05 AM [facility] [employer] LABORATORY SERVICES - [facility] RDW 13.9 11.5 - 14.5 % 06/24/2019 10:05 AM [facility] [employer] [facility] RDW-STDEV 45.3 37.1 - 48.7 fL 06/24/2019 10:05 AM [facility] [employer] [facility] PLATELETS 272 140 - 350 K/uL 06/24/2019 10:05 AM [facility] [employer] [facility] MPV 9.3 9.3 - 12.4 fL 06/24/2019 10:05 AM [facility] [employer] [facility] NEUTROPHILS 76 % 06/24/2019 10:05 AM [facility] [employer] [facility] LYMPHOCYTES 17 % 06/24/2019 10:05 AM [facility] [employer] [facility] MONOCYTES 6 % 06/24/2019 10:05 AM [facility] [employer] [facility] EOSINOPHILS 1 % 06/24/2019 10:05 AM [facility] [employer] [facility] BASOPHILS 0 % 06/24/2019 10:05 AM [facility] [employer] [facility] IMMATURE GRANULOCYTES 1 % 06/24/2019 10:05 AM PUPPY WALKER [employer] [facility] Comment:IG (Immature Granulo cyte) count includes Metamyelocytes, Myelocytes, and Promyelocytes NEUTROPHIL ABSOLUTE 8.36(H) 1.90 - 7.00 K/uL 06/24/2019 10:05 AM PUPPY WALKER [employer] [facility] LYMPHOCYTE ABSOLUTE 1.81 0.70 - 4.50 K/uL 06/24/2019 10:05 AM [facility] [employer] [facility] MONOCYTE ABSOLUTE 0.63 0.10 - 1.30 K/uL 06/24/2019 10:05 AM PUPPY WALKER [employer] [facility] EOSINOPHIL ABSOLUTE 0.08 0.00 - 0.70 K/uL 06/24/2019 10:05 AM [employer] [facility] BASOPHILS ABSOLUTE 0.04 0.00 - 0.20 K/uL 06/24/2019 10:05 AM PUPPY WALKER [employer] [facility] IMMATURE GRANULOCYTES ABSOLUTE 0.06(H) 0.00 - 0.03 K/uL 06/24/2019 10:05 AM [facility] [employer] [facility] Blood Venipuncture / Unknown 06/24/2019 9:59 AM [facility] 06/24/2019 10:00 AM PUPPY WALKER Alize Arteaga MD HEMATOLOGY ORDE RABLES Performing Organization Address [facility]/ZIP Co de Phone Number [facility]# [id number] [address] [place] [address] * (ABNORMAL) TRIGLYCERIDE (06/24/2019 9:59 AM PUPPY WALKER) TRIGLYCERIDE 405(H) <150 mg/dL 06/24/2019 10:32 AM PUPPY WALKER [facility] [employer] [facility] Blood Venipuncture / Unknown 06/24/2019 9:59 AM PUPPY WALKER 06/24/2019 10:00 AM PUPPY WALKER Narrative [facility] [employer] [facility] - 06/24/2019 10:32 AM PUPPY WALKER TRIGLYCERIDES ? mg/dL Normal ?< 150 Borderline High ?150 - 199 High ? 200 - 499 Very High ? >= 500 Based on AHA/NCEP Guidelines. Alize Arteaga MD CHEMISTRY ORDER OSVALDO Performing Organization Address [facility] Co de Phone Number [facility]# [id number] [address] [place] [address] documented in this encounter Visit Diagnoses Diagnosis [...] to 516, thanks! Given 06/24/2019 10:45 AM PUPPY WALKER 500 Units heparin, porcine lock flush (pf) 100 unit/mL injection 500 Units 500 Units, IV, POST-PROCEDURE ONCE, 1 dose, Starting on Sat06/24/19 at 1000, Until Sat06/24/19 at 1000, Routine, Please tube to 516, thanks! Given 06/24/2019 10:00 AM PUPPY WALKER 500 Units documented in this encounter Care Teams Division Chair Relationship Specialty Start Date End Date Guerrero Middleton PA-C PCP - General Physician Dentist Attendant 02/13/18 documented as of this encounter
--- OUTSIDE RECORDS SUMMARY | 2024-05-03 21:54 | XMS_ITS | Encounter Summary ---
Author Organization [facility] Address [address] [place] [address] Care Team Providers Care Special Service Representative Name Role Phone Guerrero Middleton PA-C Primary Care Provide r Encounter Details Date Type Department Care Team (Latest Contact Info) Description 12/30/2019 Orders Only [facility] Laboratory Services [address] [place] [address] [address] [place] [address] Alize Arteaga MD NO ADDRESS [...] [facility] Heart and Vascular - [facility] [address] [place] [address] Marlys Mayer MD [address] [place] [address] documented as of this encounter Procedures Procedure Name Priority Date/Time Associated Diagnosis Comments TRIGLYCERIDE Routine 12/30/2019 11:52 AM CDT Hypertriglyceridemia documented in this encounter Results * TRIGLYCERIDE (12/30/2019 11:52 AM CDT) TRIGLYCERIDE 141 <150 mg/dL 12/30/2019 12:46 PM CDT [facility] Blood Venipuncture / Unknown 12/30/2019 11:52 AM CDT 12/30/2019 11:57 AM CDT Narrative [facility] - 12/30/2019 12:46 PM CDT TRIGLYCERIDES ? mg/dL Normal ?< 150 Borderline High ?150 - 199 High ? 200 - 499 Very High ? >= 500 Based on AHA/NCEP Guidelines. Alize Arteaga MD CHEMISTRY ORDER OSVALDO [facility] [id number] [address] [place] [address] documented in this encounter Visit Diagnoses Diagnosis Hypertriglyceridemia- Primary Pure hyperglyceridemia documented in this encounter Care Teams Special Service Representative Relationship Specialty Start Date End Date Guerrero Middleton PA-C PCP - General Physician Judge Clerk 02/13/18 documented as of this encounter
--- OUTSIDE RECORDS SUMMARY | 2024-05-03 21:54 | XMS_ITS | Encounter Summary ---
Author Organization [facility] Address [address] [place] [address] Care Team Providers Care Web Page Designer Name Role Phone Guerrero Middleton PA-C Primary Care Provide r Reason for Referral * Eval and Treat (Routine) - Closed Specialty Diagnoses / Procedures Referred By Tequila t Referred To Contact Diagnoses Tobacco dependence Prudence Gates MD [address] [place] [address] Stlo Admitting [address] [place] [address] Referral ID Status Reason Start Date Expiration Date V isits Requested Visits Authorized [id number] Closed CRS To Schedule (STL) 12/14/2019 12/14/2020 1 1 Reason for Visit * Reason Comments Establish Care dm type 2 Encounter Details Date Type Department Care Team (Late st Contact Info) Description 12/14/2019 1:00 PM CDT Office Visit [facility] Endocrinology [address] [place] [address] Prudence Gates MD [address] [place] [address] Uncontrolled type 2 diabetes mellitus [...] fenofibrate 160 mg. She went to the [facility] and was told to stop [...] of left power flow port 05/11/2019 ??? ND ESOPHAGOGASTRODUODENOSCOPY TRANSORAL DIAGNOSTIC N/A 03/08/2018 ESOPHAGOGASTRODUODENOSCOPY performed by Ceasar Vega MD at [facility] GI LAB Family History [...] 02:58 PM Lab Results Component Value Date/Time [id number] 51 08/10/2011 07:21 AM [id number] 6 08/10/2011 07:21 AM [id number] 57 08/10/2011 07:21 AM Lab Results Component Value Date/Time WBC 12.2 (H) 12/04/2019 10:16 AM HGB 13.6 12/04/2019 10:16 AM HCT 41.4 12/04/2019 10:16 AM PLT 256 12/04/2019 10:16 AM MCV 90.6 12/04/2019 10:16 AM No results found for: MICROALBUMIN, MALBUR, JFWYBJ59, MICRCREATR, MICRALBURINE Lab Results Component Value Date/Time [...] of the time was spent counseling reviewing [facility] notes testing from [facility] documented in this encounter Plan of Treatment Upcoming Encounters Date Type Department Care Team (Late st Contact Info) Description 09/14/2024 3:00 PM CDT Office Visit [facility] [address] [place] [address] Marlys Mayer MD [address] [place] [address] Scheduled Referrals Name Type Priority [...] disorder documented in this encounter Care Teams Web Page Designer Relationship Specialty Start Date End Date Guerrero Middleton PA-C PCP - General Physician Dial Lathe Operator 02/13/18 documented as of this encounter
--- OUTSIDE RECORDS SUMMARY | 2024-05-03 21:54 | XMS_ITS | Encounter Summary ---
Author Organization [facility] Address [address] [place] [address] Care Team Providers Care Diagrammer And Seamer Name Role Phone Guerrero Middleton PA-C Primary Care Provide r Encounter Details Date Type Department Care Team (Latest Contact Info) Description 12/16/2019 9:45 AM CDT - 12/16/2019 11:59 PM CDT Hospital Encounter [facility] Tobacco Cessation [address] [place] [address] [address] [address] Discharge Disposition: Home or Self Care [...] PM CDT Office Visit [facility] Heart and Vascular - [facility] [address] [place] [address] Marlys Mayer MD [address] [place] [address] documented as of this encounter Visit Diagnoses Not on filedocumented in this encounter Care Teams Diagrammer And Seamer Relationship Specialty Start Date End Date Guerrero Middleton PA-C PCP - General Physician Warehouse Logistics Manager 02/13/18 documented as of this encounter
--- OUTSIDE RECORDS SUMMARY | 2024-05-03 21:54 | XMS_ITS | Encounter Summary ---
Author Organization [facility] Address [address] Orozco: Epic Prelude ADT [place] [address] Care Team Providers Care Project Officer Name Role Phone Guererro Middleton PA-C Primary Care Provide r Encounter [...] do you attend [facility] or adventist services? Never 08/21/2018 Do you [...] [facility] [address] [place] [address] Marlys Mayer MD [address] [place] [address] documented as of this encounter Visit Diagnoses Not on filedocumented in this encounter Care Teams Project Officer Relationship Specialty Start Date End Date Guerrero Middleton PA-C PCP - General Physician Nut Roaster Helper 02/13/18 documented as of this encounter
--- OUTSIDE RECORDS SUMMARY | 2024-05-03 21:54 | XMS_ITS | Encounter Summary ---
Author Organization [facility] Address [address] [place] [address] Care Team Providers Care Automatic Lehr Operator Name Role Phone Guerrero Middleton PA-C Primary Care Provide r Encounter Details Date Type Department Care Team (Latest Contact Info) Description 07/20/2019 9:49 AM CDT - 07/20/2019 11:59 PM CDT Hospital Encounter [facility] Blood Bank Donor Center [facility] [address] [place] [address] Alize Arteaga MD NO ADDRESS ON FILE [...] 1 Tablet (10 mg) by mouth daily front end assistant. 30 Tablet 5 04/08/2019 10/12/2019 levothyroxine 200 [...] the procedure. ?? Alize Arteaga MD, PhD Radial Arm Saw Operator, therapeutic apheresis service [phone] ?? Procedure??notes:?L and R bard ports used for procedure. ??Patient tolerated procedure well. Patient to return in one week. documented in this encounter Plan of Treatment Upcoming Encounters Date Type Department Care Team (Late st Contact Info) Description 09/14/2024 3:00 PM CDT Office Visit [facility] Heart and Vascular - [facility] [address] [place] [address] Marlys Mayer MD [address] [place] [address] documented as of this encounter Procedures Procedure Name Priority Date/Time Associated Diagnosis Comments CBC WITH DIFFERENTIAL Routine 07/20/2019 10:44 AM CDT Hypertriglyceridemi a TRIGLYCERIDE Routine 07/20/2019 10:44 AM CDT Hypertriglyceridemi a documented in this encounter Results * (ABNORMAL) CBC WITH DIFFERENTIAL (07/20/2019 10:44 AM CDT) [facility] WBC 8.2 4.0 - 9.8 K/uL 07/20/2019 10:51 AM CDT [facility] LABORATORY SERVICES - [facility] RBC 4.79 3.90 - 4.90 M/uL 07/20/2019 10:51 AM CDT [facility] LABORATORY SERVICES - [facility] HEMOGLOBIN 14.0 11.8 - 14.8 g/dL 07/20/2019 10:51 AM CDT [facility] LABORATORY SERVICES - [facility] HEMATOCRIT 42.5 35.5 - 44.0 % 07/20/2019 10:51 AM CDT [facility] LABORATORY SERVICES - [facility] MCV 88.7 82.0 - 99.0 fL 07/20/2019 10:51 AM CDT [facility] LABORATORY SERVICES - [facility] MCH 29.2 27.2 - 32.6 pg 07/20/2019 10:51 AM CDT [facility] LABORATORY SERVICES - [facility] MCHC 32.9 31.5 - 35.5 g/dL 07/20/2019 10:51 AM [facility] LABORATORY SERVICES - [facility] RDW 13.2 11.5 - 14.5 % 07/20/2019 10:51 AM CDT [facility] LABORATORY SERVICES - [facility] RDW-STDEV 43.6 37.1 - 48.7 fL 07/20/2019 10:51 AM CDT [facility] LABORATORY SERVICES - [facility] PLATELETS 219 140 - 350 K/uL 07/20/2019 10:51 AM [facility] LABORATORY SERVICES - [facility] MPV 9.7 9.3 - 12.4 fL 07/20/2019 10:51 AM [facility] LABORATORY SERVICES - [facility] NEUTROPHILS 69 % 07/20/2019 10:51 AM [facility] LABORATORY SERVICES - . [facility] LYMPHOCYTES 24 % 07/20/2019 10:51 AM [facility] LABORATORY SERVICES - . [facility] MONOCYTES 6 % 07/20/2019 10:51 AM [facility] LABORATORY SERVICES - . [facility] EOSINOPHILS 1 % 07/20/2019 10:51 AM [facility] LABORATORY SERVICES - . [facility] BASOPHILS 0 % 07/20/2019 10:51 AM [facility] LABORATORY SERVICES - . [facility] IMMATURE GRANULOCYTES 1 % 07/20/2019 10:51 AM [facility] LABORATORY SERVICES - . [facility] Comment:IG (Immature Granulo cyte) count includes Metamyelocytes, Myelocytes, and Promyelocytes NEUTROPHIL ABSOLUTE 5.67 1.90 - 7.00 K/uL 07/20/2019 10:51 AM CDT [facility] LABORATORY SERVICES - . [facility] LYMPHOCYTE ABSOLUTE 1.94 0.70 - 4.50 K/uL 07/20/2019 10:51 AM [facility] LABORATORY SERVICES - . [facility] MONOCYTE ABSOLUTE 0.49 0.10 - 1.30 K/uL 07/20/2019 10:51 AM CDT [facility] LABORATORY SERVICES - . [facility] EOSINOPHIL ABSOLUTE 0.08 0.00 - 0.70 K/uL 07/20/2019 10:51 AM CDT [facility] LABORATORY SERVICES - [facility] BASOPHILS ABSOLUTE 0.02 0.00 - 0.20 K/uL 07/20/2019 10:51 AM CDT [facility] LABORATORY SERVICES - [facility] IMMATURE GRANULOCYTES ABSOLUTE 0.04(H) 0.00 - 0.03 K/uL 07/20/2019 10:51 AM CDT [facility] LABORATORY SERVICES - [facility] Blood Venipuncture / Unknown 07/20/2019 10:44 AM CDT 07/20/2019 10:46 AM CDT Alize Arteaga MD HEMATOLOGY ORDE RABLES Performing Organization Address City/[facility]/ZIP Co de Phone Number [facility] [employer] [facility]# [id number] [address] [place] [address] * (ABNORMAL) TRIGLYCERIDE (07/20/2019 10:44 AM CDT) TRIGLYCERIDE 1,669(H) <150 mg/dL 07/20/2019 11:37 AM CDT [facility] LABORATORY SERVICES - [facility] Blood Venipuncture / Unknown 07/20/2019 10:44 AM CDT 07/20/2019 10:46 AM CDT Narrative [facility] LABORATORY [facility] - [facility] - 07/20/2019 11:37 AM CDT TRIGLYCERIDES ? mg/dL Normal ?< 150 Borderline High ?150 - 199 High ? 200 - 499 Very High ? >= 500 Based on AHA/NCEP Guidelines. Alize Arteaga MD CHEMISTRY ORDER OSVALDO Performing Organization Address [facility]/ZIP Co de Phone Number [facility] [employer] [facility]# [id number] [address] [place] [address] documented in this encounter Visit Diagnoses Diagnosis [...] Units documented in this encounter Care Teams Automatic Lehr Operator Relationship Specialty Start Date End Date Guerrero Middleton PA-C PCP - General Physician Claims Associate 02/13/18 documented as of this encounter
--- OUTSIDE RECORDS SUMMARY | 2024-05-03 21:54 | XMS_ITS | Encounter Summary ---
Author Organization [facility] Address [address] [place] [address] Care Team Providers Care Leak Inspector Name Role Phone Guerrero Middleton PA-C Primary Care Provide r Encounter Details Date Type Department Care Team (Latest Contact Info) Description 11/04/2019 9:43 AM CDT - 11/04/2019 11:59 PM CDT Hospital Encounter [facility] Donor Services [address] [phone] Blake Rudd MD NO ADDRESS ON FILE [...] well. 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 ?? PMH: ??Hypertriglyceridemia (associated with prior episodes of pancreatitis, received inpatient plasma exchanges 04/2018, 07/2018 and 09/2018, started on prophylactic exchanges October 2018, one port removed from R chest and new port placed in L chest 02/18/2019), DM, anxiety, GERG, HLD, hypothyroidism, PCOS ?? Meds: as per [employer]. ?? Exam: ?? General Appearance: - Well [...] the procedure. ?? Alize Arteaga MD, PhD Web Support Engineer, therapeutic apheresis service [phone] ?? Procedure??notes:?L and??R bard ports??used for procedure. ??Patient tolerated procedure well. Patient to return in ~28 days. documented in this encounter Plan of Treatment Upcoming Encounters Date Type Department Care Team (Late st Contact Info) Description 09/14/2024 3:00 PM CDT Office Visit [facility] Heart and Vascular - [facility] [address] [place] [address] Marlys Mayer MD [address] [place] [address] documented as of this encounter Procedures Procedure Name Priority Date/Time Associated Diagnosis Comments TRIGLYCERIDE Stat 11/04/2019 9:52 AM CDT Mixed hyperlipidemia documented in this encounter Results * (ABNORMAL) TRIGLYCERIDE (11/04/2019 9:52 AM CDT) TRIGLYCERIDE 696(H) <150 mg/dL 11/04/2019 10:25 AM CDT [facility] Blood Collection / Unknown 11/04/2019 9:52 AM CDT 11/04/2019 9:56 AM CDT Narrative [facility] - 11/04/2019 10:25 AM CDT TRIGLYCERIDES ? mg/dL Normal ?< 150 Borderline High ?150 - 199 High ? 200 - 499 Very High ? >= 500 Based on AHA/NCEP Guidelines. Alize Arteaga MD CHEMISTRY ORDER OSVALDO [facility] LABORATORY SERVICES [facility]# [id number] [address] [place] [address] documented in this encounter Visit Diagnoses Diagnosis [...] Units documented in this encounter Care Teams Leak Inspector Relationship Specialty Start Date End Date Guerrero Middleton PA-C PCP - General Physician Director Recreation 02/13/18 documented as of this encounter
--- OUTSIDE RECORDS SUMMARY | 2024-05-03 21:54 | XMS_ITS | Encounter Summary ---
Author Organization [facility] Address [address] Orozco: Epic Prelude ADT [place] [address] Care Team Providers Care Equine Science Instructor Name Role Phone Guerrero Middleton [...] you attend [facility] or pentecostalism services? Never 08/21/2018 Do you [...] PM CDT Office Visit [facility] Heart [facility] - [facility] [address] [place] [address] Marlys Mayer MD [address] [place] [address] documented as of this encounter Visit Diagnoses Not on filedocumented in this encounter Care Teams Equine Science Instructor Relationship Specialty Start Date End Date Guerrero Middleton PA-C PCP - General Physician Cooler Service Supervisor 02/13/18 documented as of this encounter
--- OUTSIDE RECORDS SUMMARY | 2024-05-03 21:54 | XMS_ITS | Encounter Summary ---
Author Organization [facility] Address [address] [place] [address] Care Team Providers Care Cracker Sprayer Name Role Phone Guerrero Middleton PA-C Primary Care Provide r Reason for Visit * Reason Comments Medication Refill Encounter Details Date Type Department Care Team (Late st Contact Info) Description 10/10/2019 Refill [facility] Endocrinology [address] [place] [address] Blake Rudd MD NO ADDRESS [...] and Vascular - [address] [place] [address] Marlys Mayer MD [address] [place] [address] documented as of this encounter Visit Diagnoses Not on filedocumented in this encounter Care Teams Cracker Sprayer Relationship Specialty Start Date End Date Guerrero Middleton PA-C PCP - General Physician Counter Maker 02/13/18 documented as of this encounter
--- OUTSIDE RECORDS SUMMARY | 2024-05-03 21:54 | XMS_ITS | Encounter Summary ---
Author Organization [facility] Address [address] Orozco: Epic Prelude ADT [place] [address] Care Team Providers Care Nut Picker Name Role Phone Guerrero Middleton PA-C [...] do you attend [facility] or [facility] services? Never 08/21/2018 Do [...] [facility] [address] [place] [address] Marlys Mayer MD [address] [place] [address] documented as of this encounter Visit Diagnoses Not on filedocumented in this encounter Care Teams Nut Picker Relationship Specialty Start Date End Date Guerrero Middleton PA-C PCP - General Physician Overhead Cleaner Maintainer 02/13/18 documented as of this encounter
--- OUTSIDE RECORDS SUMMARY | 2024-05-03 21:55 | XMS_ITS | Encounter Summary ---
Author Organization [facility] Address [address] [place] [address] Care Team Providers Care Penology Teacher Name Role Phone Guerrero Middleton PA-C Primary Care Provide r Encounter Details Date Type Department Care Team (Latest Contact Info) Description 03/20/2019 10:00 AM SECURITY CONSULTANT - 03/20/2019 11:[address] [facility] Hospital Encounter [facility] Blood Bank Donor Center [facility] [address] [place] [place] [address] Alize Arteaga MD NO ADDRESS ON FILE [...] Comments Blood Pressure 105/73 03/20/2019 1:10 PM SECURITY CONSULTANT Pulse 96 03/20/2019 1:10 PM SECURITY CONSULTANT Temperature 37 ??C (98.6 ??F) 03/20/2019 1:10 PM SECURITY CONSULTANT Respiratory Rate 16 03/20/2019 1:10 PM SECURITY CONSULTANT Oxygen Saturation - - Inhaled Oxygen Concentration [...] vitals taken, pt left in stable condition. RITY CONSULTANT * Alize Arteaga MD - 03/20/2019 10:00 [...] 6. Patient to go on two week [employer] cruise next week. Patient reminded to avoid alcohol and high fat foods on her travels. We will see her when she returns from her cruise to resume once weekly treatment. ?? I have seen and examined the patient, reviewed pertinent notes and records, and remained immediately available throughout the procedure. ?? Alize Arteaga MD, PhD Rug Underlay Machine Operator, therapeutic apheresis service [phone] ?? Procedure??notes:??Cathflo needed to get adequate return in L BARD powerflow port.??L port not usedfor procedure. R bard port and R AC used for procedure. Patient tolerated procedure well.?? RITY CONSULTANT documented in this encounter Plan of Treatment Upcoming Encounters Date Type Department Care Team (Late st Contact Info) Description 09/14/2024 3:00 PM CDT Office Visit [facility] Heart and Vascular - [place] [address] [place] [address] Marlys Mayer MD [address] [place] [address] documented as of this encounter Procedures Procedure Name Priority Date/Time Associated Diagnosis Comments CBC WITH DIFFERENTIAL Routine 03/20/2019 10:50 AM SECURITY CONSULTANT Hypertriglyceridemi a TRIGLYCERIDE Routine 03/20/2019 10:50 AM SECURITY CONSULTANT Hypertriglyceridemi a documented in this encounter Results * (ABNORMAL) CBC WITH DIFFERENTIAL (03/20/2019 10:50 AM SECURITY CONSULTANT) WBC 9.5 4.0 - 9.8 K/uL 03/20/2019 11:29 AM SECURITY CONSULTANT [facility] RBC 4.29 3.90 - 4.90 M/uL 03/20/2019 11:29 AM SECURITY CONSULTANT [facility] HEMOGLOBIN 12.6 11.8 - 14.8 g/dL 03/20/2019 11:29 AM SECURITY CONSULTANT [facility] HEMATOCRIT 37.5 35.5 - 44.0 % 03/20/2019 11:29 AM SECURITY CONSULTANT [facility] MCV 87.4 82.0 - 99.0 fL 03/20/2019 11:29 AM [employer] [facility] MCH 29.4 27.2 - 32.6 pg 03/20/2019 11:29 AM SECURITY CONSULTANT [facility] MCHC 33.6 31.5 - 35.5 g/dL 03/20/2019 11:29 AM SECURITY CONSULTANT [facility] RDW 15.1(H) 11.5 - 14.5 % 03/20/2019 11:29 AM [facility] [facility] RDW-STDEV 48.2 37.1 - 48.7 fL 03/20/2019 11:29 AM [employer] [facility] PLATELETS 220 140 - 350 K/uL 03/20/2019 11:29 AM SECURITY CONSULTANT [facility] MPV 9.8 9.3 - 12.4 fL 03/20/2019 11:29 AM SECURITY CONSULTANT [facility] NEUTROPHILS 68 % 03/20/2019 11:29 AM SECURITY CONSULTANT [facility] LYMPHOCYTES 27 % 03/20/2019 11:29 AM SECURITY CONSULTANT [facility] MONOCYTES 4 % 03/20/2019 11:29 AM SECURITY CONSULTANT [facility] EOSINOPHILS 1 % 03/20/2019 11:29 AM SECURITY CONSULTANT [facility] BASOPHILS 0 % 03/20/2019 11:29 AM SECURITY CONSULTANT [facility] IMMATURE GRANULOCYTES 0 % 03/20/2019 11:29 AM [facility] NEUTROPHIL ABSOLUTE 6.39 1.90 - 7.00 K/uL 03/20/2019 11:29 AM [facility] LYMPHOCYTE ABSOLUTE 2.54 0.70 - 4.50 K/uL 03/20/2019 11:29 AM [facility] MONOCYTE ABSOLUTE 0.37 0.10 - 1.30 K/uL 03/20/2019 11:29 AM [facility] EOSINOPHIL ABSOLUTE 0.07 0.00 - 0.70 K/uL 03/20/2019 11:29 AM [facility] BASOPHILS ABSOLUTE 0.04 0.00 - 0.20 K/uL 03/20/2019 11:29 AM [facility] IMMATURE GRANULOCYTES ABSOLUTE 0.04(H) 0.00 - 0.03 K/uL 03/20/2019 11:[address] [facility] Blood Venipuncture / Unknown 03/20/2019 10:50 AM SECURITY CONSULTANT 03/20/2019 10:54 AM SECURITY CONSULTANT Alize Arteaga MD HEMATOLOGY [facility] Organization Address City/State/ZIP Co de Phone Number [facility]# [id number] [address] [place] [address] * (ABNORMAL) TRIGLYCERIDE (03/20/2019 10:50 AM SECURITY CONSULTANT) TRIGLYCERIDE 1,419(H) <150 mg/dL 03/20/2019 12:55 PM SECURITY CONSULTANT [facility] [employer] [facility] Blood Venipuncture / Unknown 03/20/2019 10:50 AM SECURITY CONSULTANT 03/20/2019 10:54 AM SECURITY CONSULTANT Narrative [facility] LABOR[facility] - 03/20/2019 12:55 PM SECURITY CONSULTANT TRIGLYCERIDES ? mg/dL Normal ?< 150 Borderline High ?150 - 199 High ? 200 - 499 Very High ? >= 500 Based on AHA/NCEP Guidelines. Alize Arteaga MD CHEMISTRY ORDER [facility]# [id number] [address] [place] [address] documented in this encounter Visit Diagnoses Diagnosis [...] to station 516. Given 03/20/2019 11:05 AM SECURITY CONSULTANT 2 mg Chest, Left calcium GLUCONATE 2,000 mg in sodium chloride 0.9% 120 mL IVPB 2,000 mg, IV, INTRA-PROCEDURE CONTINUOUS, Starting on Sat03/20/19 at 1000, Until 03/21/19 at 0245, Routine New Bag 03/20/2019 11:47 AM SECURITY CONSULTANT 2,000 mg 240 mL/hr heparin injection 2,000 Units 2,000 Units, IV, ONE TIME ONLY, 1 dose, On Sat03/20/19 at 1000, Routine, Tube to 516, thanks! Given 03/20/2019 12:30 PM SECURITY CONSULTANT 2,000 Units heparin injection 2,000 Units 2,000 Units, IV, ONE TIME ONLY, 1 dose, On Sat03/20/19 at 1000, Routine, Tube to 516, thanks! Given 03/20/2019 12:33 PM SECURITY CONSULTANT 2,000 Units documented in this encounter Care Teams Penology Teacher Relationship Specialty Start Date End Date Guerrero Middleton PA-C PCP - General Physician Ground Instructor Advanced 02/13/18 documented as of this encounter
--- OUTSIDE RECORDS SUMMARY | 2024-05-03 21:55 | XMS_ITS | Encounter Summary ---
Author Organization [facility] Address [address] [place] [address] Care Team Providers Care Senior Windows Administrator Name Role Phone Guerrero Middleton PA-C Primary Care Provide r Encounter Details Date Type Department Care Team (Latest Contact Info) Description 03/04/2019 10:00 AM FIELD RESEARCH ASSISTANT - 03/04/2019 11:59 PM [facility] Hospital Encounter [facility] Blood Bank Donor Center S [facility] [address] [place] [address] Alize Arteaga MD NO ADDRESS ON FILE [...] Comments Blood Pressure 112/74 03/04/2019 1:30 PM FIELD RESEARCH ASSISTANT Pulse 90 03/04/2019 1:30 PM FIELD RESEARCH ASSISTANT Temperature 36.7 ??C (98 ??F) 03/04/2019 1:30 PM FIELD RESEARCH ASSISTANT Respiratory Rate 16 03/04/2019 1:30 PM FIELD RESEARCH ASSISTANT Oxygen Saturation - - Inhaled Oxygen [...] procedure scheduled for Monday, March 11, 2019. 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 Explained [...] the procedure. ?? Alize Arteaga MD, PhD Commercial Portfolio Manager, therapeutic apheresis service [phone] ?? Procedure??notes: Cathflo needed to get adequate return in L BARD powerflow port. Patient toleratedprocedure well.?? D RESEARCH ASSISTANT documented in this encounter Plan of Treatment Upcoming Encounters Date Type Department Care Team (Late st Contact Info) Description 09/14/2024 3:00 PM CDT Office Visit [facility] Heart and Vascular - [facility] [address] [place] [address] Marlys Mayer MD [address] [place] [address] documented as of this encounter Procedures Procedure Name Priority Date/Time Associated Diagnosis Comments TRIGLYCERIDE Routine 03/04/2019 10:31 AM FIELD RESEARCH ASSISTANT Metabolic syndrome History of gestational diabetes Family [...] Results * (ABNORMAL) TRIGLYCERIDE (03/04/2019 10:31 AM FIELD RESEARCH ASSISTANT) TRIGLYCERIDE 1,268(H) <150 mg/dL 03/04/2019 11:15 AM FIELD RESEARCH ASSISTANT [facility] Blood Collection / Unknown 03/04/2019 10:31 AM FIELD RESEARCH ASSISTANT 03/04/2019 10:32 AM FIELD RESEARCH ASSISTANT Narrative [facility] - 03/04/2019 11:15 AM FIELD RESEARCH ASSISTANT TRIGLYCERIDES ? mg/dL Normal ?< 150 Borderline High ?150 - 199 High ? 200 - 499 Very High ? >= 500 Based on AHA/NCEP Guidelines. Alize Arteaga MD CHEMISTRY ORDER [facility]# [id number] [address] [place] [address] documented in this encounter Visit Diagnoses Diagnosis [...] station 516. STAT Given 03/04/2019 11:01 AM FIELD RESEARCH ASSISTANT 2 mg Chest, Left calcium GLUCONATE 2,000 mg in sodium chloride 0.9% 120 mL IVPB 2,000 mg, IV, INTRA-PROCEDURE ONCE, 1 dose, Starting on Sat03/04/19 at 1000, Until Sat03/04/19 at 1320, Routine New Bag 03/04/2019 12:20 PM FIELD RESEARCH ASSISTANT 2,000 mg 240 mL/hr heparin injection 2,000 Units 2,000 Units, IV, ONE TIME ONLY, 1 dose, On Sat03/04/19 at 1000, Routine, PLEASE TUBE TO STATION 516. Given 03/04/2019 1:49 PM FIELD RESEARCH ASSISTANT 2,000 Units heparin injection 2,000 Units 2,000 Units, IV, ONE TIME ONLY, 1 dose, On Sat03/04/19 at 1000, Routine, PLEASE TUBE TO STATION 516. Given 03/04/2019 1:36 PM FIELD RESEARCH ASSISTANT 2,000 Units water sterile injection See Admin Instructions, ONE TIME ONLY, 1 dose, On Sat03/04/19 at 1045, Routine Given 03/04/2019 11:01 AM FIELD RESEARCH ASSISTANT 10 mL Chest, Left documented in this encounter Care Teams Senior Windows Administrator Relationship Specialty Start Date End Date Guerrero Middleton PA-C PCP - General Physician Beam Dyer Recessed Vat 02/13/18 documented as of this encounter
--- OUTSIDE RECORDS SUMMARY | 2024-05-03 21:55 | XMS_ITS | Encounter Summary ---
Author Organization [facility] Address [address] [place] [address] Care Team Providers Care Archivist Military History Name Role Phone Guerrero Middleton PA-C Primary Care Provide r Reason for Referral * Radiology Services (Routine) - Closed Specialty Diagnoses / Procedures Referred By Contac t Referred To Contact Diagnoses Follow up Procedures IR VENOUS NECK Laverne Willoughby MD Department of Radiology [address] [place] [address] Referral ID Status Reason Start Date Expiration Date Visits Re quested Visits Authorized [id number] Closed 02/11/2019 03/13/2020 1 1 Reason for Visit * Auth/Cert Specialty Diagnoses / Procedures Referred By Contac t Referred To Contact General Surgery Diagnoses Follow up Procedures IR VENOUS NECK [facility] [address] [address] Referral ID Status Reason Start Date Expiration Date Visits Re quested Visits Authorized [id number] 1 1 Encounter Details Date Type Department Care Team (Latest Contact Info) Description 02/18/2019 6:04 AM CDT - 02/18/2019 12:59 PM CDT Hospital Encounter [facility] ST Amb Care Interventional Unit [address] [address] Laverne Willoughby MD Department of Radiology [address] [place] [address] [facility] Tyra Alvarez MD [address] [place] [address] Grady Goldberg CRNA [address] [place] [address] Follow up Discharge Disposition: Home [...] How often do you attend chur or hinduism services? Never 08/21/2018 Do you belong to [...] away or gets worse. ??? Please call [phone] with any questions or concerns regarding the [...] and Vascular - [place] [address] [place] [address] Marlys Mayer MD [address] [place] [address] documented as of this encounter Procedures Procedure [...] was placed. DICTATION LOCATION: Location 1 - [facility] 02/19/2019 4:27 PM CDT EXAMINATION: 1. [...] was obtained. Prior to beginning the procedure, [place]ang Protocol was performed to confirm the patient's [...] was obtained. Prior to beginning the procedure, [place]vang Protocol was performed to confirm the patient's [...] was placed. DICTATION LOCATION: Location 1 - [facility] Laverne Fartun CARNEY IR ORDERABLES * (ABNORMAL) POC GLUCOSE (02/18/2019 10:14 AM CDT) GLUCOSE POC 219(H) 74 - 99 mg/dL 02/18/2019 10:14 AM T [facility] [employer] [facility] MINE DEPUTY NAME POC TITA AUSTIN 02/18/2019 10:14 AM [facility] Whole blood specimen (specimen) 02/18/2019 10:14 AM CDT 02/18/2019 10:29 AM CDT Laverne Willoughby MD POINT OF CARE TESTJERONIMO Serrano Performing Organization Address [facility]/ZIP Co de Phone Number [facility] LABORATORY [facility] CLIA# [id number] [address] [place] [address] * (ABNORMAL) POC GLUCOSE (02/18/2019 9:07 AM CDT) GLUCOSE POC 238(H) 74 - 99 mg/dL 02/18/2019 9:07 AM CDT [employer] LABORATORY SERVICES - [facility] COMMENT, GLU POC Notified RN/MD 02/18/2019 9:07 AM CDT [facility] LABORATORY SERVICES [facility] MINE DEPUTY NAME POC Scotty ELIZONDO 02/18/2019 9:07 AM CDT [employer] LABORATORY SERVICES [facility] Whole blood specimen (specimen) 02/18/2019 9:07 AM CDT 02/18/2019 9:22 AM CDT Laverne Willoughby MD POINT OF CARE TESTJERONIMO Maggie Performing Organization Address [facility] Co de Phone Number [facility] [employer] [facility] CLIA# [id number] [address] [place] [address] * (ABNORMAL) POC GLUCOSE (02/18/2019 6:37 AM CDT) GLUCOSE POC 226(H) 74 - 99 mg/dL 02/18/2019 6:37 AM CDT [employer] LABORATORY SERVICES [facility] MINE DEPUTY NAME POC TITA [place] 02/18/2019 6:37 AM CDT [employer] LABORATORY SERVICES [facility] Whole blood specimen (specimen) 02/18/2019 6:37 AM CDT 02/18/2019 6:49 AM CDT Laverne Willoughby MD POINT OF CARE FLY Serrano [facility] LABORATORY [facility]# [id number] [address] [place] [address] documented in this encounter Visit Diagnoses Diagnosis [...] Surgical prophylaxis 0840 (Given - Provid er: Grayd Goldberg CRNA) insulin regular (HUMULIN R,NOVOLIN R) [...] RN) documented in this encounter Care Teams Archivist Military History Relationship Specialty Start Date End Date Guerrero Middleton PA-C PCP - General Physician Pumper Gauger Apprentice 02/13/18 documented as of this encounter
--- OUTSIDE RECORDS SUMMARY | 2024-05-03 21:55 | XMS_ITS | Encounter Summary ---
Author Organization [facility] Address [address] [place] [address] Care Team Providers Care Wired Sweatband Cutter Name Role Phone Guerrero Middleton PA-C Primary Care Provide r Reason for Visit * Reason Comments Follow Up dm Encounter Details Date Type Department Care Team (Late st Contact Info) Description 04/08/2019 1:15 PM [employer] Office Visit [facility] Endocrinology [address] [place] [address] Blake Rudd MD NO ADDRESS [...] often do you attend chur ch or christianity services? Never 08/21/2018 Do you [...] Comments Blood Pressure 128/82 04/08/2019 1:21 PM [employer] Pulse 89 04/08/2019 1:21 PM [employer] Temperature - - Respiratory Rate - - Oxygen Saturation - - Inhaled Oxygen Concentration - - Weight 88 kg (194 lb) 04/08/2019 1:21 PM [employer] Height 165.1 cm (5' 5 ) 04/08/2019 1:21 PM [employer] Body Mass Index 32.28 04/08/2019 1:21 PM [employer] documented in this encounter Progress Notes * Blake Rudd MD - 04/08/2019 3:51 PM CST [facility] Endocrinology PCP: Guerrero Middleton PA-C [...] for bimonthly pheresis She is going to [place] in the coming weeks for evaluation. She [...] plasmapheresis. She has recently been evaluated by [facility] endocrinology. Her niacin and fish oil were [...] 1 Tablet (10 mg) by mouth daily registrar college or university. 30 Tablet 5 ??? HYDROcodone-acetaminophen (NORCO) 5-325 [...] level: Not on file Occupational History Employer: [employer] Social Needs ??? Financial resource strain: Not [...] Gets together: Three times a week Attends christianity service: Never Active member of club or [...] TUNNELED VENOUS CATHETER PLACEMENT Right 09/29/2018 ??? [place] ESOPHAGOGASTRODUODENOSCOPY TRANSORAL DIAGNOSTIC N/A 03/08/2018 ESOPHAGOGASTRODUODENOSCOPY performed by Ceasar Vega MD at [facility] GI LAB Physical Findings: No results [...] with any questions. Blake Rudd MD PhD [employer] documented in this encounter Plan of Treatment Upcoming Encounters Date Type Department Care Team (Late st Contact Info) Description 09/14/2024 3:00 PM CDT Office Visit [facility] Heart and Vascular - [facility] [address] [place] [address] Marlys Mayer MD [address] [place] [address] documented as of this encounter Visit Diagnoses Diagnosis Type 2 diabetes mellitus with hyperglycemia, with long-term current use of insulin- Primary Muscle pain Mylagia and myositis, unspecified Acquired hypothyroidism Unspecified hypothyroidism Hypertriglyceridemia Pure hyperglyceridemia Pancreatitis, recurrent Chronic pancreatitis documented in this encounter Care Teams Wired Sweatband Cutter Relationship Specialty Start Date End Date Guerrero Middleton PA-C PCP - General Physician Archeologist Classical 02/13/18 documented as of this encounter
--- OUTSIDE RECORDS SUMMARY | 2024-05-03 21:55 | XMS_ITS | Encounter Summary ---
Author Organization [facility] Address [address] [place] [address] Care Team Providers Care Knife Setter Name Role Phone Guerrero Middleton PA-C Primary Care Provide r Encounter Details Date Type Department Care Team (Latest Contact Info) Description 04/08/2019 9:36 AM FINAL FINISHER - 04/08/2019 11:59 PM [facility] Hospital Encounter [facility] Blood Bank Donor Center S [facility] [address] [place] [address] Alize Arteaga MD NO ADDRESS ON FILE [...] Comments Blood Pressure 110/68 04/08/2019 12:28 PM FINAL FINISHER Pulse 102 04/08/2019 12:28 PM FINAL FINISHER Temperature 36.8 ??C (98.3 ??F) 04/08/2019 12:[address] Respiratory Rate 16 04/08/2019 12:28 PM FINAL FINISHER Oxygen Saturation - - Inhaled Oxygen Concentration [...] 1 Tablet (10 mg) by mouth daily peer counselor. 30 Tablet 5 04/08/2019 10/12/2019 HYDROcodone-acetamino phen [...] applied to both side. Pt left ambulatory. L FINISHER * Alize Arteaga MD - 04/08/2019 10:00 [...] the procedure. ?? Alize Arteaga MD, PhD Principal Quality Engineer, therapeutic apheresis service [phone] ?? Procedure??notes:??Cathflo needed to get adequate return in L BARD powerflow port.??L port not usedfor procedure. R bard port and R AC used for procedure. Patient tolerated procedure well.?? L FINISHER documented in this encounter Plan of Treatment Upcoming Encounters Date Type Department Care Team (Late st Contact Info) Description 09/14/2024 3:00 PM CDT Office Visit [facility] Heart and Vascular - [facility] [address] [place] [address] Marlys Mayer MD [address] [place] [address] documented as of this encounter Procedures Procedure Name Priority Date/Time Associated Diagnosis Comments TRIGLYCERIDE Routine 04/08/2019 10:37 AM FINAL FINISHER Hypertriglyceridemia Mixed hyperlipidemia documented in this encounter Results * (ABNORMAL) TRIGLYCERIDE (04/08/2019 10:37 AM FINAL FINISHER) TRIGLYCERIDE 2,686(H) <150 mg/dL 04/08/2019 6:07 PM FINAL FINISHER [facility] Blood Venipuncture / Unknown 04/08/2019 10:37 AM FINAL FINISHER 04/08/2019 10:37 AM FINAL FINISHER Narrative [facility] LABORATORY SERVICES - [facility] - 04/08/2019 6:07 PM FINAL FINISHER TRIGLYCERIDES ? mg/dL Normal ?< 150 Borderline High ?150 - 199 High ? 200 - 499 Very High ? >= 500 Based on AHA/NCEP Guidelines. Alize Arteaga MD CHEMISTRY ORDER [facility] LABORATORY SERVICES [facility]# [id number] [address] [place] [address] documented in this encounter Visit Diagnoses Diagnosis [...] 516, blood bank Given 04/08/2019 10:48 AM FINAL FINISHER 2 mg Chest, Left calcium GLUCONATE 2,000 mg in sodium chloride 0.9% 120 mL IVPB 2,000 mg, IV, INTRA-PROCEDURE ONCE, 1 dose, Starting on Sat04/08/19 at 0930, Until Sat04/08/19 at 1211, Routine New Bag 04/08/2019 10:55 AM FINAL FINISHER 2,000 mg 240 mL/hr heparin injection 2,000 Units 2,000 Units, IV, ONE TIME ONLY, 1 dose, On Sat04/08/19 at 1100, Routine, Please tube to 516, thanks! Given 04/08/2019 12:28 PM FINAL FINISHER 2,000 Units heparin injection 2,000 Units 2,000 Units, IV, ONE TIME ONLY, 1 dose, On Sat04/08/19 at 1100, Routine, Tube to 516, thanks! Given 04/08/2019 11:00 AM FINAL FINISHER 2,000 Units water sterile injection See Admin Instructions, ONE TIME ONLY, 1 dose, On Sat04/08/19 at 0900, Routine, Please tube 516, blood bank Given 04/08/2019 10:48 AM FINAL FINISHER Chest, Left documented in this encounter Care Teams Knife Setter Relationship Specialty Start Date End Date Guerrero Middleton PA-C PCP - General Physician Food Photographer 02/13/18 documented as of this encounter
--- OUTSIDE RECORDS SUMMARY | 2024-05-03 21:55 | XMS_ITS | Encounter Summary ---
Author Organization [facility] Address [address] [place] [address] Care Team Providers Care Mathematical Scientist Name Role Phone Guerrero Middleton PA-C Primary Care Provide r Encounter Details Date Type Department Care Team (Latest Contact Info) Description 02/25/2019 10:00 AM CDT - 02/25/2019 11:59 PM T Hospital Encounter [facility] [address] [place] [address] Alize Arteaga MD NO ADDRESS ON FILE [...] HLD, hypothyroidism, PCOS ?? Meds: as per [employer]. ?? Exam: ?? General Appearance: - Well [...] the procedure. ?? Alize Arteaga MD, PhD [employer], therapeutic apheresis service [phone] ?? Procedure??notes: Cathflo needed to get adequate return in L BARD powerflow port. Patient toleratedprocedure well.? documented in this encounter Plan of Treatment Upcoming Encounters Date Type Department Care Team (Late st Contact Info) Description 09/14/2024 3:00 PM CDT Office Visit [facility] - [facility] [id number] [place] [address] Marlys Mayer MD [address] [place] [address] documented as of this encounter Procedures Procedure Name Priority Date/Time Associated Diagnosis Comments TRIGLYCERIDE Routine 02/25/2019 10:38 AM CDT Hypertriglyceridemia documented in this encounter Results * (ABNORMAL) TRIGLYCERIDE (02/25/2019 10:38 AM CDT) TRIGLYCERIDE 1,410(H) <150 mg/dL 02/25/2019 11:42 AM CDT [facility] [employer] [facility] Blood Collection / Unknown 02/25/2019 10:38 AM CDT 02/25/2019 10:38 AM CDT Narrative [facility] [employer] [facility] - 02/25/2019 11:42 AM CDT TRIGLYCERIDES ? mg/dL Normal ?< 150 Borderline High ?150 - 199 High ? 200 - 499 Very High ? >= 500 Based on AHA/NCEP Guidelines. Alize Arteaga MD CHEMISTRY ORDER [facility]# [id number] [address] [place] [address] documented in this encounter Visit Diagnoses Diagnosis [...] Port documented in this encounter Care Teams Mathematical Scientist Relationship Specialty Start Date End Date Guerrero Middleton PA-C PCP - General Physician [employer] 02/13/18 documented as of this encounter
--- OUTSIDE RECORDS SUMMARY | 2024-05-03 21:55 | XMS_ITS | Encounter Summary ---
Author Organization [facility] Address [address] [place] [address] Care Team Providers Care Astronomy Instructor Name Role Phone Guerrero Middleton PA-C Primary Care Provide r Reason for Visit * Reason Comments Abdominal Pain pt to ed with c/o ge neralized abd pain d/t really bad hypertriglyceridemia . +vomiting, denies any bowel issues. had treatment on saturday. * Auth/Cert Specialty Diagnoses / Procedures Referred By Tequila bowman Referred To Contact Critical Care Medicine [facility] Transitional Care Unit [address] [place] [address] Referral ID Status Reason Start Date Expiration Date Visits Re quested Visits Authorized [id number] 1 1 Encounter Details Date Type Department Care Team (Latest Contact Info) Description 02/01/2019 9:49 PM CDT - 02/04/2019 4:08 PM CDT Hospital Encounter [facility] Transitional Care Unit [address] [place] [address] Rodney Connelly DO NO ADDRESS ON FILE Araceli Santo MD [address] [place] [address] Laurie Casper MD [address] [facility] [address] [facility] [place] [address] Stephanie Babin MD [address] [place] [phone] Recurrent pancreatitis Discharge Disposition: Home or Self [...] Babin MD - 02/04/2019 2:39 PM CDT [facility] Adult Hospitalist Discharge Summary Casandra Doss 43 y.o. female 1975 CSN: [id number] Date of Admission: 02/01/2019 Date of Discharge: [...] and at bedtime. Refills: 0 Generic drug: sjwblk-nignetny-sucfgio DR dicyclomine 10 mg capsule Commonly known [...] she is eating well. F/u with her financial intern as outpatient; discussed with patient 7. Insomnia [...] is not relieved by nitroglycerin. Smoking Exposure: [facility] encourages all patients to decrease risks associated with smoking and second hand smoke exposure. If you smoke you are advised to quit. Ask your health care provider for advice if you need assistance to stop smoking. Avoid second-hand smoke exposure and do not let people smoke in your home. Please call [phone], our pulmonary rehabilitation department, to learn more [...] from the original note were not included. 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 Rudd, patient, hospitalist, and nursing staff. Please call or page with questions. STELLA Bright CDE 7A - 7P [phone] cell # 7P - 7A [phone] pager MEDICATIONS: Current Facility-Administered Medications Medication Dose [...] variable dose injection subCUT TID Meals Jazmin Viraomntesecca L, SPECIMEN TRANSPORTER ??? insulin lispro (HumaLOG) variable dose injection subCUT Daily BEDTIME Jazmin Viramontesecca L, SPECIMEN TRANSPORTER ??? insulin lispro (HumaLOG) injection 3 Units 3 Units subCUT TID Meals Wander, Nery L, SPECIMEN TRANSPORTER 3 Units at 02/04/19 1023 ??? [DISCONTINUED] insulin lispro (HumaLOG) injection 3 Units 3 Units subCUT TID Meals Wander Nery L, SPECIMEN TRANSPORTER ??? ondansetron (ZOFRAN) 4 mg/2 mL injection [...] Oral Daily BEDTIME Araceli Santo MD ??? fiojmz-ddaaqjtu-rexwlfy DR (CREON) 12,000-38,000-60,000 unit per capsule 2 [...] mL/hr IV See Admin Notes Nery Viramontes, SPECIMEN TRANSPORTER ??? dextrose 50% (D50) syringe 12.5 Gram 12.5 Gram IV See Admin Notes Nery Viramontes, SPECIMEN TRANSPORTER ??? dextrose 50% (D50) syringe 25 Gram 25 Gram IV See Admin Notes Nery Viramontes, SPECIMEN TRANSPORTER ??? glucagon HCl 1 mg injection 1 mg 1 mg IM See Admin Notes Nery Viramontes, SPECIMEN TRANSPORTER ??? atorvastatin (LIPITOR) tablet 80 mg 80 [...] Continuous Rodney Connelly DO Stopped at 02/02/19 1215 ALLERGIES: Allergies Allergen Reactions ??? Green Pepper [...] [facility] GI LAB FAMILY HISTORY: Family History [...] level: Not on file Occupational History Employer: [employer] Social Needs ??? Financial resource strain: Not [...] Gets together: Three times a week Attends cheondoism service: Never Active member of club or [...] - 02/04/2019 3:27 PM CDT Discussed with SPECIMEN TRANSPORTER. Agree with documentation. * Daniel Whitehead RN [...] from the original note were not included. 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 Rudd, patient, hospitalist, and nursing staff. Please call or page with questions. STELLA Bright CDE 7A - 7P [phone] cell # 7P - 7A [phone] pager MEDICATIONS: Current Facility-Administered Medications Medication Dose [...] Oral Daily BEDTIME Araceli Santo MD ??? epjqit-zwkftzmt-dwakskh DR (CREON) 12,000-38,000-60,000 unit per capsule 2 [...] IV See Admin Notes Nery Viramontes L, SPECIMEN TRANSPORTER ??? dextrose 50% (D50) syringe 12.5 Gram 12.5 Gram IV See Admin Notes Jazmin Viramontesecca Maxwell, SPECIMEN TRANSPORTER ??? dextrose 50% (D50) syringe 25 Gram 25 Gram IV See Admin Notes Yossi Viramontesca Maxwell, SPECIMEN TRANSPORTER ??? glucagon HCl 1 mg injection 1 mg 1 mg IM See Admin Notes Nery Viramontes, SPECIMEN TRANSPORTER ??? insulin lispro (HumaLOG) variable dose injection subCUT q 4 hour Nery Viramontes, SPECIMEN TRANSPORTER ??? atorvastatin (LIPITOR) tablet 80 mg 80 mg Oral Daily BEDTIME Araceli Santo MD 80 mg at 02/02/192009 ??? insulin glargine (LANTUS) injection 15 Units 15 Units subCUT Daily BEDTIME Nery ViramontesSPECIMEN TRANSPORTER 15 Units at 02/02/192014 ??? [DISCONTINUED] rosuvastatin [...] [facility] GI LAB FAMILY HISTORY: Family History [...] level: Not on file Occupational History Employer: [employer] Social Needs ??? Financial resource strain: Not [...] Gets together: Three times a week Attends cheondoism service: Never Active member of club or [...] - 02/03/2019 3:03 PM CDT Discussed with SPECIMEN TRANSPORTER. Agree with documentation. * Stephanie Babin MD - 02/03/2019 9:31 AM CDT [facility] Adult Hospitalist [...] Back NP - 02/02/2019 8:14 PM CDT [facility] Two patient identifier: [...] the following two coworkers: Yamil OLGUIN, James HOSTAGE NEGOTIATOR Admission or upon transfer to: [facility] 42[facility] [...] initiated. Is there skin breakdown under any Evaluator Transfer Students (splint, ETT ha, c-collar)? No If yes, please describe: Are there currently any skin protective dressings in place? No If yes, please describe skin under dressing: Protective Dressings Applied to Sacrum and Heels (Mepilex) as per Pathway? No Patient arrived to this room with the following belongings/valuables:(ie:dentures, hearing aids, glasses): glasses, wallet, clothing, shoes, phone, phone conveyor line battery charger Patient arrived to this room with the [...] call with questions. Lian Viramontes, [facility] [phone] Associated attestation - Blake Rudd MD - 02/03/2019 6:44 AM CDT Discussed with SPECIMEN TRANSPORTER. Agree with documentation. * Laurie Casper MD - 02/02/2019 12:05 PM CDT Hospitalist Addendum Patient seen and examined; plan of care reviewed. Laurie Casper MD documented in this encounter H&P Notes * Araceli Santo MD - 02/02/2019 6:29 AM CDT [facility] Adult Hospitalist Admission H&P Date of [...] [facility] GI LAB Family History: Family History [...] times daily as needed for Anxiety . uxutflb-rfvgrc-pkzycurt DR (CREON) 60-12-38 capsule 02/01/2019 at Unknown [...] 99 mg/dL COMMENT, GLU POC Notified RN/MD RETENTION REPRESENTATIVE NAME EDUARD OLMEDO POC GLUCOSE Result Value Ref Range POC GLUCOSE 197 (H) 74 - 99 mg/dL RETENTION REPRESENTATIVE NAME BROWN AMBROCIO TROPONIN 2 HR, 5TH GEN Result Value Ref Range TROPONIN T, 2 HR 5TH GEN <6 <=10 ng/L POC GLUCOSE Result Value Ref Range POC GLUCOSE 180 (H) 74 - 99 mg/dL RETENTION REPRESENTATIVE NAME BLAKE Mike POC LACTIC ACID Result Value Ref Range POC LACTATE 1.8 0.5 - 2.2 mmol/L COMMENT, GASES POC RN/MD NOTIFIED SPECIMEN SOURCE, GASES BLNK RETENTION REPRESENTATIVE NAME Lassiter Makenna POC GLUCOSE Result Value Ref Range POC GLUCOSE 162 (H) 74 - 99 mg/dL COMMENT, GLU POC Notified RN/MD RETENTION REPRESENTATIVE NAME GENOVEVA MELENDEZ TROPONIN 6 HR, 5TH [...] identified. Please call any time with questions. Araceil Santo MD Adult Hospitalist Physician 02/02/2019, 6:30 AM Pager: [phone] documented in this encounter Consult Notes * Nery Viramontes NP - 02/02/2019 12:55 PM CDTAssociated Order(s): IP CONSULT TO ENDOCRINOLOGY Images from the original note were not included. 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 Rudd, patient, hospitalist, and nursing staff. Please call or page with questions. Thank you for this consult. STELLA Bright CDTima 7A - 7P [phone] cell # 7P - 7A [phone] pager MEDICATIONS: Current Facility-Administered Medications Medication Dose [...] Oral Daily BEDTIME Araceli Santo MD ??? yyoxec-gmsrbrch-wwljmkb DR (CREON) 12,000-38,000-60,000 unit per capsule 2 [...] IV See Admin Notes Nery Viramontes L, SPECIMEN TRANSPORTER ??? dextrose 50% (D50) syringe 12.5 Gram 12.5 Gram IV See Admin Notes Jazmin Viramontesecca L, SPECIMEN TRANSPORTER ??? dextrose 50% (D50) syringe 25 Gram 25 Gram IV See Admin Notes Nery Viramontes L, SPECIMEN TRANSPORTER ??? glucagon HCl 1 mg injection 1 mg 1 mg IM See Admin Notes Nery Viramontes, SPECIMEN TRANSPORTER ??? insulin lispro (HumaLOG) variable dose injection subCUT q 4 hour Nery Viramontes, SPECIMEN TRANSPORTER ??? atorvastatin (LIPITOR) tablet 80 mg 80 mg Oral Daily BEDTIME Araceli Santo MD 80 mg at 02/02/192009 ??? insulin glargine (LANTUS) injection 15 Units 15 Units subCUT Daily BEDTIME Nery ViramontesSPECIMEN TRANSPORTER 15 Units at 02/02/192014 ??? [DISCONTINUED] rosuvastatin [...] [facility] GI LAB FAMILY HISTORY: Family History [...] level: Not on file Occupational History Employer: [employer] Social Needs ??? Financial resource strain: Not [...] Gets together: Three times a week Attends cheondoism service: Never Active member of club or [...] - 02/04/2019 9:06 PM CDT Discussed with SPECIMEN TRANSPORTER. Agree with documentation. documented in this encounter ED Notes * Ligia James RN - 02/02/2019 1:44 PM CDT Report to Yamil OLGUIN. All questions answered. * Ligia James RN - 02/02/2019 12:04 PM CDT Pt [...] work to lab. Pt placed on full tracer powder blender. PCT at bedside obtaining EKG and glucose. [...] use. EtOH yesterday. Plasmapheresis on 01/28 Physician(s): uGerrero Middleton PA-C History provided by: The patient [...] MEDICATIONS Patient's Home Medications Current Home Medications ZDCDIYC-VZHJDW-EANZIJZF DR MAGUIRE) 60-12-38 CAPSULE CITALOPRAM (CELEXA) 40 [...] 212 (*) COMMENT, GLU POC Notified RN/MD RETENTION REPRESENTATIVE NAME EDUARD OLMEDO POC GLUCOSE - Abnormal POC GLUCOSE 197 (*) RETENTION REPRESENTATIVE NAME AMBROCIO BROWN POC GLUCOSE - Abnormal POC GLUCOSE 180 (*) RETENTION REPRESENTATIVE NAME JulyBLAKE LIPASE - Normal LIPASE 52 TROPONIN BASELINE, 5TH GEN - Normal TROPONIN T, BASELINE 5TH GEN <6 TROPONIN 2 HR, 5TH GEN - Normal TROPONIN T, 2 HR 5TH GEN <6 KETONES/BETA HYDROXYBUTYRATE TROPONIN 6 HR, 5TH GEN POC LACTIC ACID POC LACTATE 1.8 COMMENT, GASES POC RN/MD NOTIFIED SPECIMEN SOURCE, GASES BLNK RETENTION REPRESENTATIVE NAME Makenna Lassiter POC GLUCOSE POC GLUCOSE [...] Patient Name: Casandra Doss Admission Date: 02/01/2019 [facility] #: [id number] Dear Doctor, In order to accurately reflect [...] coding query please contact: Bibiana Hamlin at [email or web address]. * Care Plan - Yamil Bejarano [...] and Vascular - [place] [address] [place] [phone] Marlys Mayer MD [address] [place] [address] documented as of this encounter [...] - 99 mg/dL 02/04/2019 1:23 PM CDT [facility] RETENTION REPRESENTATIVE NAME POC YAMIL BEJARANO 02/04/2019 1:23 PM CDT [facility] Whole blood specimen (specimen) 02/04/2019 1:23 PM CDT 02/04/2019 1:40 PM CDT Stephanie Babin MD POINT OF CARE T ESTING [facility]# [id number] [address] [place] [address] * (ABNORMAL) POC GLUCOSE (02/04/2019 10:21 AM CDT) GLUCOSE POC 130(H) 74 - 99 mg/dL 02/04/2019 10:21 AM CDT [facility] RETENTION REPRESENTATIVE NAME POC ROSALVA BROWN 02/04/2019 10:21 AM CDT [facility] Whole blood specimen (specimen) 02/04/2019 10:21 AM CDT 02/04/2019 10:34 AM CDT Stephanie Babin MD POINT OF CARE T ESTING [facility]# [id number] [address] [place] [address] * (ABNORMAL) TRIGLYCERIDE (02/04/2019 5:44 AM CDT) TRIGLYCERIDE 377(H) <150 mg/dL 02/04/2019 6:44 AM CDT [facility] Blood Venipuncture / Unknown 02/04/2019 5:44 AM CDT 02/04/2019 5:52 AM CDT Narrative [facility] - 02/04/2019 6:44 AM CDT TRIGLYCERIDES ? mg/dL Normal ?< 150 Borderline High ?150 - 199 High ? 200 - 499 Very High ? >= 500 Based on AHA/NCEP Guidelines. Stephanie Babin MD CHEMISTRY ORDER OSVALDO Performing Organization Address [facility]/ZIP Co de Phone Number [facility]# [id number] [address] [place] [address] * (ABNORMAL) POC GLUCOSE (02/03/2019 8:37 PM CDT) GLUCOSE POC 167(H) 74 - 99 mg/dL 02/03/2019 8:37 PM CDT [facility] RETENTION REPRESENTATIVE NAME POC DEMETRA LASSITER 02/03/2019 8:37 PM CDT [facility] Whole blood specimen (specimen) 02/03/2019 8:37 PM CDT 02/03/2019 8:51 PM CDT Stephanie Babin MD POINT OF CARE T ESTING Performing Organization Address [facility]/ZIP Co de Phone Number [facility]# [id number] [address] [place] [address] * POC GLUCOSE (02/03/2019 4:00 PM CDT) GLUCOSE POC 93 74 - 99 mg/dL 02/03/2019 4:00 PM CDT [facility] RETENTION REPRESENTATIVE NAME POC YULIANA GAFFNEY 02/03/2019 4:00 PM CDT [facility] Whole blood specimen (specimen) 02/03/2019 4:00 PM CDT 02/03/2019 4:35 PM CDT Stephanie Babin MD POINT OF CARE T ESTING Performing Organization Address [facility]/State/ZIP Co de Phone Number [facility]# [id number] [address] [place] [address] * (ABNORMAL) POC GLUCOSE (02/03/2019 11:59 AM CDT) GLUCOSE POC 108(H) 74 - 99 mg/dL 02/03/2019 11:59 AM CDT [facility] RETENTION REPRESENTATIVE NAME OLLIE YULIANA GAFFNEY 02/03/2019 11:59 AM CDT [facility] Whole blood specimen (specimen) 02/03/2019 11:59 AM CDT 02/03/2019 12:19 PM CDT Stephanie Babin MD POINT OF CARE T ESTING [facility]# [id number] [address] [place] [address] * (ABNORMAL) TRIGLYCERIDE (02/03/2019 10:21 AM CDT) TRIGLYCERIDE 638(H) <150 mg/dL 02/03/2019 11:03 AM CDT [facility] Blood Venipuncture / Unknown 02/03/2019 10:21 AM CDT 02/03/2019 10:27 AM CDT Narrative [facility] - 02/03/2019 11:03 AM CDT TRIGLYCERIDES ? mg/dL Normal ?< 150 Borderline High ?150 - 199 High ? 200 - 499 Very High ? >= 500 Based on AHA/NCEP Guidelines. Nicole Rosas MD CHEMISTRY YONI SERRANO [facility]# [id number] [address] [place] [address] * (ABNORMAL) POC GLUCOSE (02/03/2019 8:54 AM CDT) GLUCOSE POC 122(H) 74 - 99 mg/dL 02/03/2019 8:54 AM CDT [facility] RETENTION REPRESENTATIVE NAME POC YAMIL BEJARANO 02/03/2019 8:54 AM CDT [facility] Whole blood specimen (specimen) 02/03/2019 8:54 AM CDT 02/03/2019 9:10 AM CDT Stephanie Babin MD POINT OF CARE T ESTING Performing Organization Address [facility]/ZIP Co de Phone Number [facility]# [id number] [address] [place] [address] * (ABNORMAL) POC GLUCOSE (02/03/2019 7:58 AM CDT) GLUCOSE POC 120(H) 74 - 99 mg/dL 02/03/2019 7:58 AM CDT [facility] RETENTION REPRESENTATIVE NAME POC YULIANA GAFFNEY 02/03/2019 7:58 AM CDT [facility] Whole blood specimen (specimen) 02/03/2019 7:58 AM CDT 02/03/2019 8:14 AM CDT Stephanie Babin MD POINT OF CARE T ESTING Performing Organization Address [facility]/ZIP Co de Phone Number [facility]# [id number] [address] [place] [address] * TELEMETRY REPORT (02/03/2019 6:50 AM CDT) Provider Scanning ECG ORDERABLES * (ABNORMAL) POC GLUCOSE (02/03/2019 3:33 AM CDT) GLUCOSE POC 116(H) 74 - 99 mg/dL 02/03/2019 3:33 AM CDT [facility] RETENTION REPRESENTATIVE NAME DEMETRA GIVENS 02/03/2019 3:33 AM CDT [facility] Whole blood specimen (specimen) 02/03/2019 3:33 AM CDT 02/03/2019 3:48 AM CDT Laurie Casper MD POINT OF CARE TESTJERONIMO Serrano Performing Organization Address [facility] Co de Phone Number [facility]# [id number] [address] [place] [address] * (ABNORMAL) POC GLUCOSE (02/03/2019 12:18 AM CDT) GLUCOSE POC 117(H) 74 - 99 mg/dL 02/03/2019 12:18 AM CDT [facility] RETENTION REPRESENTATIVE NAME DEMETRA GIVENS 02/03/2019 12:18 AM CDT [facility] Whole blood specimen (specimen) 02/03/2019 12:18 AM CDT 02/03/2019 12:31 AM CDT Laurie Casper MD POINT OF CARE FLY Serrano [facility]# [id number] [address] [place] [address] * (ABNORMAL) POC GLUCOSE (02/02/2019 8:03 PM CDT) GLUCOSE POC 144(H) 74 - 99 mg/dL 02/02/2019 8:03 PM CDT [facility] RETENTION REPRESENTATIVE NAME DEMETRA GIVENS 02/02/2019 8:03 PM CDT [facility] Whole blood specimen (specimen) 02/02/2019 8:03 PM CDT 02/02/2019 8:17 PM CDT Laurie Casper MD POINT OF CARE TESTIN G [facility] CLIA# [id number] [address] [place] [address] * (ABNORMAL) POC GLUCOSE (02/02/2019 3:43 PM CDT) GLUCOSE POC 139(H) 74 - 99 mg/dL 02/02/2019 3:43 PM CDT [facility] RETENTION REPRESENTATIVE NAME POC YAMIL BEJARANO 02/02/2019 3:43 PM CDT [facility] Whole blood specimen (specimen) 02/02/2019 3:43 PM CDT 02/02/2019 3:59 PM CDT Laurie Casper MD POINT OF CARE TESTIN G [facility] CLIA# [id number] [address] [place] [address] * (ABNORMAL) POC GLUCOSE (02/02/2019 12:14 PM CDT) GLUCOSE POC 142(H) 74 - 99 mg/dL 02/02/2019 12:14 PM CDT [facility] RETENTION REPRESENTATIVE NAME POC LIGIA AJMES 02/02/2019 12:14 PM CDT [facility] Whole blood specimen (specimen) 02/02/2019 12:14 PM CDT 02/02/2019 12:25 PM CDT Rodney Connelly DO POINT OF CARE TESTIN G [facility] CLIA# [id number] [address] [place] [address] * (ABNORMAL) POC GLUCOSE (02/02/2019 6:37 AM CDT) GLUCOSE POC 140(H) 74 - 99 mg/dL 02/02/2019 6:37 AM CDT [facility] RETENTION REPRESENTATIVE NAME POC JANIE STANTON 02/02/2019 6:37 AM CDT [facility] Whole blood specimen (specimen) 02/02/2019 6:37 AM CDT 02/02/2019 6:50 AM CDT Rodney Connelly DO POINT OF CARE TESTIN G Performing Organization Address [facility]/ZIP Co de Phone Number [facility] CLIA# [id number] [address] [place] [address] * TROPONIN 6 HR, 5TH GEN (02/02/2019 4:08 AM CDT) [facility] TROPONIN T, 6 HR 5TH GEN <6 <=10 ng/L 02/02/2019 4:47 AM CDT [facility] Blood Venipuncture / Unknown 02/02/2019 4:08 AM CDT 02/02/2019 4:12 AM CDT Narrative [facility] - 02/02/2019 4:47 AM CDT Troponin Undetectable Unable to calculate delta. Rodney Connelly DO CHEMISTRY ORDERABLES Performing Organization Address [facility]/ZIP Co de Phone Number [facility] CLIA# [id number] [address] [place] [address] * (ABNORMAL) POC GLUCOSE (02/02/2019 4:04 AM CDT) GLUCOSE POC 162(H) 74 - 99 mg/dL 02/02/2019 4:04 AM CDT [facility] COMMENT, GLU POC Notified RN/MD 02/02/2019 4:04 AM CDT [facility] RETENTION REPRESENTATIVE NAME GENOVEVA AGUILAR 02/02/2019 4:04 AM CDT [facility] Whole blood specimen (specimen) 02/02/2019 4:04 AM CDT 02/02/2019 4:22 AM CDT Rodney Connelly DO POINT OF CARE TESTIN Maggie Performing Organization Address [facility] Phone Number [facility] CLIA# [id number] [address] [facility] [place] [address] * (ABNORMAL) POC GLUCOSE (02/02/2019 2:04 AM CDT) GLUCOSE POC 178(H) 74 - 99 mg/dL 02/02/2019 2:04 AM CDT [facility] COMMENT, GLU POC Notified CLAU/ 02/02/2019 2:04 AM CDT [facility] RETENTION REPRESENTATIVE NAME GENOVEVA AGUILAR 02/02/2019 2:04 AM CDT [facility] Whole blood specimen (specimen) 02/02/2019 2:04 AM CDT 02/02/2019 9:54 AM CDT Rodney Connelly DO POINT OF CARE TESTIN Maggie Performing Organization Address [facility] Phone Number [facility]# [id number] [address] [place] [address] [address] [address] * POC LACTIC ACID (02/02/2019 1:37 AM CDT) LACTIC ACID POC 1.8 0.5 - 2.2 mmol/L 02/02/2019 1:37 AM CDT [facility] COMMENT, GASES POC CLAU/ NOTIFIED 02/02/2019 1:37 AM CDT [facility] SPECIMEN SOURCE, GASES POC BLNK 02/02/2019 1:37 AM CDT [facility] RETENTION REPRESENTATIVE NAME POC Makenna Lassiter 02/02/2019 1:37 AM CDT [facility] Blood 02/02/2019 1:37 AM CDT 02/02/2019 1:38 AM CDT Rodney Connelly DO POINT OF CARE TESTIN G Performing Organization Address [facility] Co de Phone Number [facility] CLIA# [id number] [address] [place] [address] * (ABNORMAL) POC GLUCOSE (02/02/2019 12:59 AM CDT) GLUCOSE POC 180(H) 74 - 99 mg/dL 02/02/2019 12:59 AM CDT [facility] RETENTION REPRESENTATIVE NAME POC BLAKE Mike 02/02/2019 12:59 AM CDT [facility] LABORATORY SERVICES [facility] Whole blood specimen (specimen) 02/02/2019 12:59 AM CDT 02/02/2019 1:27 AM CDT Rodney Connelly DO POINT OF CARE TESTIN G Performing Organization Address [facility] Co de Phone Number [facility] CLIA# [id number] [address] [place] [address] * TROPONIN 2 HR, 5TH GEN (02/02/2019 12:18 AM CDT) TROPONIN T, 2 HR 5TH GEN <6 <=10 ng/L 02/02/2019 12:56 AM CDT [facility] Blood Venipuncture / Unknown 02/02/2019 12:18 AM CDT 02/02/2019 12:30 AM CDT [facility] - 02/02/2019 12:56 AM CDT Troponin Undetectable Unable to calculate delta. Rodney Connelly DO CHEMISTRY ORDERABLES Performing Organization Address City/State/[facility] Co de Phone Number [facility]# [id number] [address] [place] [address] * (ABNORMAL) POC GLUCOSE (02/02/2019 12:01 AM CDT) GLUCOSE POC 197(H) 74 - 99 mg/dL 02/02/2019 12:01 AM CDT [facility] RETENTION REPRESENTATIVE NAME POC BROWN AMBROCIO 02/02/2019 12:01 AM CDT [facility] Whole blood specimen (specimen) 02/02/2019 12:01 AM CDT 02/02/2019 12:12 AM CDT Rodney Connelly DO POINT OF CARE TESTIN G Performing Organization Address [facility] Co de Phone Number [facility]# [id number] [address] [place] [address] * EKG 12-LEAD (02/01/2019 10:24 PM CDT) 02/01/2019 10:2 4 PM CDT Narrative INTERFACE SYSTEM - 02/02/2019 8:00 AM CDT ? Stationary ECG Study ? [facility] ? Test Date: ?02/01/2019 10:24 PM Pat Name: ? CASANDRA CRAFTOCTAVIO ?Department: ?? 38 ?Room: ? 13 Gender: ? F ?Water Supervisor: ?? [email or web address] : ?1975 ? Requested By: RODNEY CONNELLY Order Number: [id number] ?Reading : ?? Malcom Blackburn ? Measurements Intervals ?[place] ? Rate: ? 78 ? P: ?55 AK: ? 155 ?QRS: ?63 QRSD: ? 87 ? T: ?-4 QT: ? 378 ? QTc: ?431 ? Interpretive Statements ? Sinus rhythm Borderline T abnormalities, inferior leads Electronically Signed On 02-02-2019 8:00:17 CDT by Malcom Blackburn Procedure Note Malcom Blackburn MD - 06/14/2021 Stationary ECG Study [facility] Test Date: 02/01/2019 10:24 PM Pat Name: CASANDRA DOSS Department: 38 Room: 13 Gender: F Water Supervisor: uday : 1975 Requested By: RODNEY CONNELLY Order Number: [id number] Reading MD: Malcom Blackburn Measurements Intervals [place] Rate: 78 P: 55 AK: 155 QRS: 63 QRSD: 87 T: -4 QT: 378 QTc: 431 Interpretive Statements Sinus rhythm Borderline T abnormalities, inferior leads Electronically Signed On 02-02-2019 8:00:17 CDT by Malcom Blackburn Rodney Connelly DO ECG ORDERABLES INTERFACE SYSTEM Refer to clinic/hospital department * (ABNORMAL) POC GLUCOSE (02/01/2019 10:20 PM CDT) GLUCOSE POC 212(H) 74 - 99 mg/dL 02/01/2019 10:20 PM CDT [facility] COMMENT, GLU POC Notified RN/MD 02/01/2019 10:20 PM CDT [facility] RETENTION REPRESENTATIVE NAME POC EDUARD OLMEDO 02/01/2019 10:20 PM CDT [facility] Whole blood specimen (specimen) 02/01/2019 10:20 PM CDT 02/01/2019 10:38 PM CDT Rodney Connelly DO POINT OF CARE TESTIN G Performing Organization Address [facility]/ZIP Co de Phone Number [facility] CLIA# [id number] [address] [place] [address] * (ABNORMAL) LIPID PANEL (02/01/2019 10:15 PM CDT) CHOLESTEROL 162 <200 mg/dL 02/01/2019 11:41 PM CDT [facility] TRIGLYCERIDE 703(H) <150 mg/dL 02/01/2019 11:41 PM CDT [facility] HDL 30(L) 40 - 59 mg/dL 02/01/2019 11:41 PM CDT [facility] LDL CALCULATED 02/01/2019 11:41 PM T [facility] Comment:Calculated LDL is no t accurate when the Triglyceride value exceeds 400. NON-HDL CHOLESTEROL 132(H) <130 mg/dL 02/01/2019 11:41 PM CDT [facility] Blood Venipuncture / Unknown 02/01/2019 10:15 PM CDT 02/01/2019 10:25 PM CDT Narrative [facility] - 02/01/2019 11:41 PM CDT TOTAL CHOLESTEROL [...] Panels (NCEP/AMA) Rodney Connelly DO CHEMISTRY ORDERABLES [facility] CLIA# [id number] [address] [facility] [place] [address] * TROPONIN BASELINE, 5TH GEN (02/01/2019 10:15 PM CDT) TROPONIN T, BASELINE 5TH GEN <6 <=10 ng/L 02/01/2019 11:41 PM CDT [facility] Blood Venipuncture / Unknown 02/01/2019 10:15 PM CDT 02/01/2019 10:25 PM CDT Narrative [facility] - 02/01/2019 11:41 PM CDT Troponin Undetectable Rodney Connelly DO CHEMISTRY ORDERABLES [facility] CLIA# [id number] [address] [place] [address] * KETONES/BETA HYDROXYBUTYRATE (02/01/2019 10:15 PM CDT) BETA HYDROXYBUTYRATE 0.2 <0.4 mmol/L 02/02/2019 2:34 AM CDT [facility] Blood Venipuncture / Unknown 02/01/2019 10:15 PM CDT 02/01/2019 10:25 PM CDT Rodney Connelly DO CHEMISTRY ORDERABLES Performing Organization Address City/[facility] Care [facility]/ZIP Co de Phone Number [facility] CLIA# [id number] [address] [place] [address] * LIPASE (02/01/2019 10:15 PM CDT) LIPASE 52 13 - 60 U/L 02/01/2019 11:41 PM CDT [facility] Blood Venipuncture / Unknown 02/01/2019 10:15 PM CDT 02/01/2019 10:25 PM CDT Rodney Connelly DO CHEMISTRY ORDERABLES [facility] CLIA# [id number] [address] [place] [address] * (ABNORMAL) COMPREHENSIVE METABOLIC PANEL (02/01/2019 10:15 PM CDT) SODIUM 139 136 - 145 mmol/L 02/01/2019 11:41 PM CDT [facility] LAB[facility]ATORY SERVICES [facility] POTASSIUM 4.5 3.5 - 5.0 mmol/L 02/01/2019 11:41 PM [facility] LABORATORY SERVICES - [facility] CHLORIDE 100 98 - 107 mmol/L 02/01/2019 11:41 PM [facility] LABORATORY SERVICES - [facility] CO2 23 22 - 29 mmol/L 02/01/2019 11:41 PM [facility] LABORATORY [facility] CALCIUM 9.0 8.6 - 10.2 mg/dL 02/01/2019 11:41 PM [facility] LABORATORY SERVICES - [facility] BUN 9 6 - 20 mg/dL 02/01/2019 11:41 PM [facility] LABORATORY SERVICES - [facility] CREATININE 0.58 0.51 - 0.95 mg/dL 02/01/2019 11:41 PM [facility] LABORATORY SERVICES - [facility] GLUCOSE 242(H) 74 - 99 mg/dL 02/01/2019 11:41 PM [facility] LABORATORY [facility] - . [facility] TOTAL PROTEIN 6.5(L) 6.7 - 8.6 g/dL 02/01/2019 11:41 PM [facility] LABORATORY [facility] - . [facility] ALBUMIN 4.5 3.5 - 5.2 g/dL 02/01/2019 11:41 PM [facility] LABORATORY [facility] - . [facility] BILIRUBIN TOTAL <0.2(L) 0.3 - 1.2 mg/dL 02/01/2019 11:41 PM [facility] LABORATORY [facility] - . [facility] ALKALINE PHOSPHATASE 62 35 - 104 U/L 02/01/2019 11:41 PM [facility] LABORATORY [facility] - . [facility] AST 17 <33 U/L 02/01/2019 11:41 PM [facility] LABORATORY SERVICES - [facility] Comment:Hemolysis present. R esult may be falsely elevated. ALT 11 <34 U/L 02/01/2019 11:41 PM [facility] LABORATORY [facility] - [facility] GFR >60 >=60 mL/min/1.7 3 sq meter 02/01/2019 11:41 PM [facility] LABORATORY [facility] Comment: eGFR has not been [...] 3 sq meter 02/01/2019 11:41 PM CDT [facility] LAB[facility]AT[facility] ANION GAP 16 8 - 16 mmol/L 02/01/2019 11:41 PM CDT [facility] LABORATORY SERVICES [facility] Blood Venipuncture / Unknown 02/01/2019 10:15 PM CDT 02/01/2019 10:25 PM CDT [facility] LABORATORY SERVICES [facility] - 02/01/2019 11:41 PM CDT Samples containing indocyanine green cause interferences on Total and/or Direct Bilirubin and must not be measured. Rodney Connelly DO CHEMISTRY ORDERABLES [facility] LABORATORY SERVICES [facility]# [id number] [address] [facility] [place] [id number] * (ABNORMAL) CBC WITH DIFFERENTIAL (02/01/2019 10:15 PM CDT) WBC 11.5(H) 4.0 - 9.8 K/uL 02/01/2019 10:45 PM CDT [facility] LABORATORY SERVICES [facility] RBC 4.19 3.90 - 4.90 M/uL 02/01/2019 10:45 PM CDT [facility] LABORATORY SERVICES - [facility] HEMOGLOBIN 12.0 11.8 - 14.8 g/dL 02/01/2019 10:45 PM CDT [facility] LABORATORY SERVICES [facility] HEMATOCRIT 37.5 35.5 - 44.0 % 02/01/2019 10:45 PM CDT [facility] LABORATORY SERVICES - [facility] MCV 89.5 82.0 - 99.0 fL 02/01/2019 10:45 PM CDT [facility] LABORATORY SERVICES [facility] MCH 28.6 27.2 - 32.6 pg 02/01/2019 10:45 PM CDT [facility] LABORATORY SERVICES - . [facility] MCHC 32.0 31.5 - 35.5 g/dL 02/01/2019 10:45 PM CDT [facility] LABORATORY SERVICES [facility] RDW 14.4 11.5 - 14.5 % 02/01/2019 10:45 PM CDT [facility] LABORATORY SERVICES - [facility] RDW-STDEV 47.1 37.1 - 48.7 fL 02/01/2019 10:45 PM CDT [facility] LABORATORY SERVICES - [facility] PLATELETS 282 140 - 350 K/uL 02/01/2019 10:45 PM CDT [facility]ORATORY SERVICES - [facility] MPV 9.3 9.3 - 12.4 fL 02/01/2019 10:45 PM [employer] [facility] LABORATORY SERVICES - [facility] NEUTROPHILS 67 % 02/01/2019 10:45 PM [employer] [facility]AT[facility] - [facility] LYMPHOCYTES 26 % 02/01/2019 10:45 PM [facility] LABORATORY SERVICES - [facility] MONOCYTES 6 % 02/01/2019 10:45 PM [employer] [facility] LABORATORY SERVICES [facility] EOSINOPHILS 1 % 02/01/2019 10:45 PM [employer] [facility]ATORY SERVICES - [facility] BASOPHILS 0 % 02/01/2019 10:45 PM [facility] LABORATORY SERVICES - [facility] IMMATURE GRANULOCYTES 1 % 02/01/2019 10:45 PM [employer] [facility] LABORATORY SERVICES - [facility] Comment:IG (Immature Granulo cyte) count includes Metamyelocytes, Myelocytes, and Promyelocytes NEUTROPHIL ABSOLUTE 7.64(H) 1.90 - 7.00 K/uL 02/01/2019 10:45 PM [employer] [facility]AT[facility] - [facility] LYMPHOCYTE ABSOLUTE 2.94 0.70 - 4.50 K/uL 02/01/2019 10:45 PM [employer] [facility] LABORATORY SERVICES - [facility] MONOCYTE ABSOLUTE 0.68 0.10 - 1.30 K/uL 02/01/2019 10:45 PM CDT [facility] LABORATORY SERVICES [facility] EOSINOPHIL ABSOLUTE 0.13 0.00 - 0.70 K/uL 02/01/2019 10:45 PM [employer] LABORATORY SERVICES [facility] BASOPHILS ABSOLUTE 0.05 0.00 - 0.20 K/uL 02/01/2019 10:45 PM CDT [facility] LABORATORY SERVICES - . [facility] IMMATURE GRANULOCYTES ABSOLUTE 0.06(H) 0.00 - 0.03 K/uL 02/01/2019 10:45 PM CDT [facility] LABORATORY SERVICES - [facility] Blood Venipuncture / Unknown 02/01/2019 10:15 PM CDT 02/01/2019 10:25 PM CDT Rodney Patelleoratima DO HEMATOLOGY ORDERABLE S [facility] LABORATORY SERVICES [facility] CLIA# [id number] [address] [facility] [address] [place], [place] [address] documented in this encounter Visit Diagnoses Diagnosis [...] Given 02/02/2019 5:37 PM CDT 200 mcg szueil-tsbdlfcp-lxmblph DR MAGUIRE) 12,000-38,000-60,000 unit per capsule 2 [...] Yamil Bejarano RN)2041 (Given - Provider: Demetra Lassiter RN) 0912 (Given - Provider: Yamil Bejarano RN)1305 (Given - Provider: Yamil Bejarano RN) enoxaparin (LOVENOX) injection 40 mg 40 mg, subCUT, EVERY 24 HOURS, First dose on Sat02/02/19 at 1230, Until Discontinued, Routine, Indication: Prophylaxis of VTE, Dose to be adjusted per facility protocol? Yes 1430 (Given - Provider: aYmil Bejarano RN) 1201 (Given - Provider: Yamil [...] 0545 (Given - Provider: Demetra Lassiter RN) ivfvrf-vlfisyal-fhldbol DR (AMELIA) 12,000-38,000-60,000 unit per capsule 2 [...] RN) documented in this encounter Care Teams Astronomy Instructor Relationship Specialty Start Date End Date Guerrero Middleton PA-C PCP - General Physician High Lift Operator 02/13/18 documented as of this encounter
--- OUTSIDE RECORDS SUMMARY | 2024-05-03 21:55 | XMS_ITS | Encounter Summary ---
Author Organization [facility] Address [address] [place] [address] Care Team Providers Care Senior Vice President Name Role Phone Guerrero Middleton PA-C Primary Care Provide r Reason for Visit * Auth/Cert Specialty Diagnoses / Procedures Referred By Conthardik t Referred To Contact General Surgery Diagnoses Follow up Procedures IR VENOUS NECK [facility] Int Unit [address] [address] Referral ID Status Reason Start Date Expiration Date Visits Re quested Visits Authorized [id number] 1 1 Encounter Details Date Type Department Care Team (Latest Contact Info) Description 02/18/2019 12:00 PM CDT - 02/18/2019 11:59 PM CDT Hospital Encounter [facility] Blood Bank Don[id number] [place] [address] Alize Arteaga MD NO ADDRESS ON FILE [...] the procedure. ?? Alize Arteaga MD, PhD [employer] [facility], therapeutic apheresis service [phone] ?? Procedure??notes: Patient tolerated procedure well.? documented in this encounter Plan of Treatment Upcoming Encounters Date Type Department Care Team (Late st Contact Info) Description 09/14/2024 3:00 PM CDT Office Visit [facility] Heart and Vascular - [facility] [address] [place] [address] Marlys Mayer MD [address] [place] [address] documented as of this encounter Procedures Procedure Name Priority Date/Time Associated Diagnosis Comments CBC WITH DIFFERENTIAL Routine 02/18/2019 1:23 PM CDT Hypertriglyceridemi a TRIGLYCERIDE Routine 02/18/2019 1:23 PM CDT Hypertriglyceridemi a documented in this encounter Results * (ABNORMAL) TRIGLYCERIDE (02/18/2019 1:23 PM CDT) TRIGLYCERIDE 2,020(H) <150 mg/dL 02/18/2019 9:20 PM CDT [facility] [employer] [facility] Blood Venipuncture / Unknown 02/18/2019 1:23 PM CDT 02/18/2019 1:58 PM CDT [facility] LABORATORY [facility] - 02/18/2019 9:20 PM CDT TRIGLYCERIDES ? mg/dL Normal ?< 150 Borderline High ?150 - 199 High ? 200 - 499 Very High ? >= 500 Based on AHA/NCEP Guidelines. Alize Arteaga MD CHEMISTRY ORDER [facility] LABORATORY SERVICES [facility] CLIA# [id number] [address] [facility] [address] * (ABNORMAL) CBC WITH DIFFERENTIAL (02/18/2019 1:23 PM CDT) WBC 10.7(H) 4.0 - 9.8 K/uL 02/18/2019 2:32 PM CDT [facility] LABORATORY [facility] RBC 4.15 3.90 - 4.90 M/uL 02/18/2019 2:32 PM CDT [facility] [employer] [facility] HEMOGLOBIN 12.3 11.8 - 14.8 g/dL 02/18/2019 2:32 PM CDT [facility] LABORATORY [facility] HEMATOCRIT 36.7 35.5 - 44.0 % 02/18/2019 2:32 PM CDT [facility] LABORATORY [facility] MCV 88.4 82.0 - 99.0 fL 02/18/2019 2:32 PM CDT [facility] LABORATORY [facility] MCH 29.6 27.2 - 32.6 pg 02/18/2019 2:32 PM CDT [facility] LABORATORY SERVICES - [facility] MCHC 33.5 31.5 - 35.5 g/dL 02/18/2019 2:32 PM CDT [facility] [employer] [facility] RDW 14.3 11.5 - 14.5 % 02/18/2019 2:32 PM CDT [facility] LABORATORY SERVICES - . [facility] RDW-STDEV 46.2 37.1 - 48.7 fL 02/18/2019 2:32 PM [facility] [employer] LABORATORY SERVICES [facility] PLATELETS 289 140 - 350 K/uL 02/18/2019 2:32 PM [employer] LABORATORY SERVICES - [facility] MPV 9.6 9.3 - 12.4 fL 02/18/2019 2:[address] [facility] LABORATORY SERVICES - [facility] NEUTROPHILS 68 % 02/18/2019 2:32 PM [employer] LABORATORY SERVICES - [facility] LYMPHOCYTES 25 % 02/18/2019 2:32 PM [employer] LABORATORY SERVICES - [facility] MONOCYTES 5 % 02/18/2019 2:32 PM T [employer] LABORATORY SERVICES - [facility] EOSINOPHILS 1 % 02/18/2019 2:32 PM [employer] LABORATORY SERVICES - [facility] BASOPHILS 1 % 02/18/2019 2:32 PM [employer] LABORATORY SERVICES - [facility] IMMATURE GRANULOCYTES 1 % 02/18/2019 2:32 PM [facility] LABORATORY SERVICES - . [facility] Comment:IG (Immature Granulo cyte) count includes Metamyelocytes, Myelocytes, and Promyelocytes NEUTROPHIL ABSOLUTE 7.28(H) 1.90 - 7.00 K/uL 02/18/2019 2:32 PM [facility] LABORATORY SERVICES - [facility] LYMPHOCYTE ABSOLUTE 2.63 0.70 - 4.50 K/uL 02/18/2019 2:32 PM [employer] LABORATORY SERVICES - [facility] MONOCYTE ABSOLUTE 0.57 0.10 - 1.30 K/uL 02/18/2019 2:32 PM [employer] LABORATORY SERVICES - [facility] EOSINOPHIL ABSOLUTE 0.08 0.00 - 0.70 K/uL 02/18/2019 2:32 PM [employer] LABORATORY SERVICES - [facility] BASOPHILS ABSOLUTE 0.05 0.00 - 0.20 K/uL 02/18/2019 2:32 PM [facility] - . [facility] IMMATURE GRANULOCYTES ABSOLUTE 0.06(H) 0.00 - 0.03 K/uL 02/18/2019 2:32 PM [facility] - . [facility] Blood Venipuncture / Unknown 02/18/2019 1:23 PM CDT 02/18/2019 1:58 PM CDT Alize Arteaga MD HEMATOLOGY [facility] LABORATORY SERVICES [facility]# [id number] [address] [place] [address] documented in this encounter Visit Diagnoses Diagnosis [...] documented in this encounter Care Teams Senior Vice President Relationship Specialty Start Date End Date Guerrero Middleton PA-C PCP - General Physician Wood Scrap Handler 02/13/18 documented as of this encounter
--- OUTSIDE RECORDS SUMMARY | 2024-05-03 21:55 | XMS_ITS | Encounter Summary ---
Author Organization [facility] Address [address] [place] [address] Care Team Providers Care Retail Product Demo Specialist Name Role Phone Guerrero Middleton PA-C Primary Care Provide r Reason for Visit * Auth/Cert Specialty Diagnoses / Procedures Referred By Contac t Referred To Contact General Surgery Diagnoses Hypertriglyceridemia Procedures IR VENOUS NECK [facility] Int Unit [place] [address] [place] [address] Referral ID Status Reason Start Date Expiration Date Visits Re quested Visits Authorized [id number] 1 1 Encounter Details Date Type Department Care Team (Late st Contact Info) Description 05/11/2019 10:17 AM IMPROVEMENT LEAD Anesthesia Event [facility] Interventional Radiology S [facility] [address] [place] [address] Mark Wyatt MD [address] [place] [address] Anesthesia Record Procedure Summary Procedure [...] Hydration status: well hydrated Mark Wyatt MD OVEMENT LEAD * Anesthesia Handoff - Mark Wyatt MD [...] 6:53 AM) 11:40 AM Mark Wyatt MD OVEMENT LEAD * Anesthesia Preprocedure Evaluation - Mark Wyatt [...] risks discussed with Patient and Patient Designated Evaporator Operator Molasses. Post-op Pain Control Plan to use Block and Per surgeon for post-op pain control. Plan for postoperative opioid use Smoking Compliance Patient smoked on day of surgery OVEMENT LEAD documented in this encounter Miscellaneous Notes * Addendum Note - Mark Wyatt MD - 05/11/2019 3:03 PM CST Addendum created 05/11/19 1503 by Mark Wyatt MD Attestation recorded in Intraprocedure, Intraprocedure Attestations filed OVEMENT LEAD documented in this encounter Plan of Treatment Upcoming Encounters Date Type Department Care Team (Late st Contact Info) Description 09/14/2024 3:00 PM CDT Office Visit [facility] [address] [place] [address] Marlys Mayer MD [address] [place] [address] documented as of this encounter [...] Indication: Surgical prophylaxis Given 05/11/2019 10:27 AM IMPROVEMENT LEAD 2,000 mg fentaNYL PF (SUBLIMAZE) 50 mcg/mL injection INTRA-PROCEDURE PRN, Starting on Sat05/11/19 at 1023, Until Sat05/11/19 at 1140, Routine, Anesthesia Intra-op Given 05/11/2019 10:23 AM IMPROVEMENT LEAD 50 mcg glycopyrrolate (ROBINUL) injection INTRA-PROCEDURE PRN, Starting on Sat05/11/19 at 1025, Until Sat05/11/19 at 1140, Routine, Anesthesia Intra-op Given 05/11/2019 10:25 AM IMPROVEMENT LEAD 0.2 mg lidocaine (PF) (XYLOCAINE MPF) 60 mg/3 mL (2 %) injection syringe INTRA-PROCEDURE PRN, Starting on Sat05/11/19 at 1025, Until Sat05/11/19 at 1140, Routine, Anesthesia Intra-op Given 05/11/2019 10:25 AM IMPROVEMENT LEAD 60 mg midazolam (PF) (VERSED) injection INTRA-PROCEDURE PRN, Starting on Sat05/11/19 at 1023, Until Sat05/11/19 at 1140, Routine, Anesthesia Intra-op Given 05/11/2019 10:23 AM IMPROVEMENT LEAD 2 mg ondansetron (ZOFRAN) 4 mg/2 mL injection INTRA-PROCEDURE PRN, Starting on Sat05/11/19 at 1026, Until Sat05/11/19 at 1140, Routine, Anesthesia Intra-op Given 05/11/2019 10:26 AM IMPROVEMENT LEAD 4 mg propofol (DIPRIVAN) injection INTRA-PROCEDURE CONTINUOUS PRN, Starting on Sat05/11/19 at 1035, Until Sat05/11/19 at 1140, Anesthesia Intra-op New Bag 05/11/2019 10:35 AM IMPROVEMENT LEAD 80 mcg/kg/min 42.24 mL/hr documented in this encounter Care Teams Retail Product Demo Specialist Relationship Specialty Start Date End Date Guerrero Middleton PA-C PCP - General Physician Paymaster Of Purses 02/13/18 documented as of this encounter
--- OUTSIDE RECORDS SUMMARY | 2024-05-03 21:55 | XMS_ITS | Encounter Summary ---
Author Organization [facility] Address [address] [place] [address] Care Team Providers Care Accounts Payable Accountant Name Role Phone Guerrero Middleton PA-C Primary Care Provide r Encounter Details Date Type Department Care Team (Latest Contact Info) Description 04/24/2019 10:05 AM STEAM TRAIN DRIVER - 04/24/2019 11:59 PM [facility] Hospital Encounter [facility] Blood Bank Donor Center [facility] [address] [place] [address] Alize Arteaga MD NO ADDRESS ON FILE [...] Comments Blood Pressure 103/70 04/24/2019 12:19 PM STEAM TRAIN DRIVER Pulse 86 04/24/2019 12:19 PM STEAM TRAIN DRIVER Temperature 36.7 ??C (98.1 ??F) 04/24/2019 12:19 [...] 1 Tablet (10 mg) by mouth daily room service waiter/waitress. 30 Tablet 5 04/08/2019 10/12/2019 levothyroxine 200 [...] applied to both side. Pt left ambulatory. M TRAIN DRIVER documented in this encounter Plan of Treatment Upcoming Encounters Date Type Department Care Team (Late st Contact Info) Description 09/14/2024 3:00 PM CDT Office Visit [facility] Heart and V[facility] - [place] [address] [place] [address] Marlys Mayer MD [address] [place] [address] documented as of this encounter Procedures Procedure Name Priority Date/Time Associated Diagnosis Comments CBC WITH DIFFERENTIAL Routine 04/24/2019 10:17 AM STEAM TRAIN DRIVER Hypertriglyceridemi a TRIGLYCERIDE Routine 04/24/2019 10:17 AM STEAM TRAIN DRIVER Hypertriglyceridemi a documented in this encounter Results * (ABNORMAL) CBC WITH DIFFERENTIAL (04/24/2019 10:17 AM STEAM TRAIN DRIVER) WBC 8.4 4.0 - 9.8 K/uL 04/24/2019 10:23 AM [employer] [facility] - [facility] RBC 4.11 3.90 - 4.90 M/uL 04/24/2019 10:23 AM [employer] [facility] - . [facility] HEMOGLOBIN 12.0 11.8 - 14.8 g/dL 04/24/2019 10:23 AM STEAM TRAIN DRIVER [employer] LABOR[facility]ORY SERVICES - [facility] HEMATOCRIT 36.4 35.5 - 44.0 % 04/24/2019 10:23 AM [employer] [facility] - [facility] MCV 88.6 82.0 - 99.0 fL 04/24/2019 10:23 AM [employer] [facility] - . [facility] MCH 29.2 27.2 - 32.6 pg 04/24/2019 10:23 AM [employer] [facility] - [facility] MCHC 33.0 31.5 - 35.5 g/dL 04/24/2019 10:23 AM [employer] [facility] - [facility] RDW 14.6(H) 11.5 - 14.5 % 04/24/2019 10:23 AM [employer] [facility] - [facility] RDW-STDEV 47.3 37.1 - 48.7 fL 04/24/2019 10:23 AM [employer] [facility] SERVICES - [facility] KIMO PLATELETS 262 140 - 350 K/uL 04/24/2019 10:23 AM [facility] [employer] [facility] MPV 9.4 9.3 - 12.4 fL 04/24/2019 10:23 AM [facility] [employer] [facility] KIMO NEUTROPHILS 68 % 04/24/2019 10:23 AM [facility] [employer] [facility] KIMO LYMPHOCYTES 25 % 04/24/2019 10:23 AM [facility] [employer] [facility]. KIMO MONOCYTES 6 % 04/24/2019 10:23 AM [facility] [employer] [facility] KIMO EOSINOPHILS 1 % 04/24/2019 10:23 AM [facility] [employer] [facility]. KIMO BASOPHILS 1 % 04/24/2019 10:23 AM [facility] [employer] [facility]. KIMO IMMATURE GRANULOCYTES 1 % 04/24/2019 10:23 AM [facility] [employer] [facility] Comment:IG (Immature Granulo cyte) count includes Metamyelocytes, Myelocytes, and Promyelocytes NEUTROPHIL ABSOLUTE 5.71 1.90 - 7.00 K/uL 04/24/2019 10:23 AM [facility] [employer] [facility]. [facility] LYMPHOCYTE ABSOLUTE 2.09 0.70 - 4.50 K/uL 04/24/2019 10:23 AM [facility] [employer] [facility]. [facility] MONOCYTE ABSOLUTE 0.48 0.10 - 1.30 K/uL 04/24/2019 10:23 AM [facility] [employer] [facility]. [facility] EOSINOPHIL ABSOLUTE 0.07 0.00 - 0.70 K/uL 04/24/2019 10:23 AM [facility] [employer] [facility]. [facility] BASOPHILS ABSOLUTE 0.04 0.00 - 0.20 K/uL 04/24/2019 10:23 AM [facility] [employer] [facility]. [facility] IMMATURE GRANULOCYTES ABSOLUTE 0.05(H) 0.00 - 0.03 K/uL 04/24/2019 10:23 AM [facility] [employer] [facility] Blood Collection / Unknown 04/24/2019 10:17 AM [facility] 04/24/2019 10:19 AM [facility] David Boyle MD HEMATOLOGY ORDERABL ES [facility] [employer] [facility] CLIA# [id number] [address] [place] [address] * (ABNORMAL) TRIGLYCERIDE (04/24/2019 10:17 AM STEAM TRAIN DRIVER) TRIGLYCERIDE 807(H) <150 mg/dL 04/24/2019 11:05 AM STEAM TRAIN DRIVER [facility] Blood Collection / Unknown 04/24/2019 10:17 AM STEAM TRAIN DRIVER 04/24/2019 10:19 AM STEAM TRAIN DRIVER Narrative [facility] - 04/24/2019 11:05 AM STEAM TRAIN DRIVER TRIGLYCERIDES ? mg/dL Normal ?< 150 Borderline High ?150 - 199 High ? 200 - 499 Very High ? >= 500 Based on AHA/NCEP Guidelines. David Boyle MD CHEMISTRY ORDERABLE S [facility] [employer] [facility] CLIA# [id number] [address] [place] [address] documented in this encounter Visit Diagnoses Diagnosis [...] 1000, Routine New Bag 04/24/2019 10:00 AM STEAM TRAIN DRIVER 2,000 mg 120 mL/hr heparin injection 2,000 Units 2,000 Units, IV, ONE TIME ONLY, 1 dose, On Sat04/24/19 at 1030, Routine, Please tube to station 516, blood bank Given 04/24/2019 12:15 PM STEAM TRAIN DRIVER 2,000 Units documented in this encounter Care Teams Accounts Payable Accountant Relationship Specialty Start Date End Date Guerrero Middleton PA-C PCP - General Physician Sweeper Clean[employer] 10/18/18 documented as of this encounter
--- OUTSIDE RECORDS SUMMARY | 2024-05-03 21:55 | XMS_ITS | Encounter Summary ---
Author Organization [employer] [facility] Address [address] [place] [address] Care Team Providers Care Drum Builder Name Role Phone Guerrero Middleton PA-C Primary Care Provide r Reason for Referral * Radiology Services (Routine) - Closed Specialty Diagnoses / Procedures Referred By Tequila t Referred To Contact Interventional Radiology Diagnoses Hypertriglyceridemia Procedures IR VENOUS NECK IR TUBE PLACEMENT Alize Arteaga MD NO ADDRESS ON FILE Referral ID Status Reason Start Date Expiration Date V isits Requested Visits Authorized [id number] Closed [facility] CTS 05/07/2019 06/07/2019 1 1 TRY PRINTER APPRENTICE Encounter Details Date Type Department Care Team (Latest Contact Info) Description 04/17/2019 Orders Only [facility] Blood Bank Donor Center S [facility] [address] [place] [address] [place] [place] [address] Alize Arteaga MD NO ADDRESS ON FILE [...] How often do you attend chur or yarsanism services? Never 08/21/2018 Do you [...] [facility] [address] [place] [address] Marlys Mayer MD [address] [place] [address] documented as of this encounter Results * IR VENOUS NECK (05/11/2019 11:38 AM COUNTRY PRINTER APPRENTICE) Anatomical Region Laterality Modality Neck X-Ray Angiograph y, Other 05/11/2019 11:3 8 AM COUNTRY PRINTER APPRENTICE Impressions 05/11/2019 12:38 PM COUNTRY PRINTER APPRENTICE IMPRESSION: 1. ??Successful left chest Powerflow port removal. 2. ??Successful placement of a new left chest Powerflow port with tip in the right atrium and just slightly shorter than the right-sided venous port as intended for use. PLAN: The ports are ready to use. DICTATION LOCATION: Location 1 - [facility] 05/11/2019 12:38 PM COUNTRY PRINTER APPRENTICE PROCEDURES: 1. ??FLUOROSCOPIC GUIDED LEFT CHEST VENOUS [...] [facility] Alize Arteaga MD IR ORDERABLES documented in this encounter Visit Diagnoses Diagnosis Hypertriglyceridemia- Primary Pure hyperglyceridemia Hypertriglyceridemia Pure hyperglyceridemia documented in this encounter Care Teams Drum Builder Relationship Specialty Start Date End Date Guerrero Middleton PA-C PCP - General Physician Guest Services Attendant 02/13/18 documented as of this encounter
--- OUTSIDE RECORDS SUMMARY | 2024-05-03 21:55 | XMS_ITS | Encounter Summary ---
Author Organization [facility] Address [address] [place] [address] Care Team Providers Care Volunteer Services Specialist Name Role Phone Guerrero Middleton PA-C Primary Care Provide r Encounter Details Date Type Department Care Team (Latest Contact Info) Description 01/21/2019 8:50 AM CDT - 01/21/2019 11:59 PM T Hospital Encounter [facility] Blood Bank Donor Center S [facility] [address] [place] [address] Alize Arteaga MD NO ADDRESS ON FILE [...] and records. ?? Alize Arteaga MD, PhD [employer], therapeutic apheresis service [phone] ?? Procedure #9??notes: Patient tolerated procedure well.?Patient [...] Center [place] - [place] [address] [place] [address] Marlys Mayer MD [address] [place] [address] documented as of this encounter Procedures Procedure [...] 1,817(H) <150 mg/dL 01/21/2019 11:42 AM CDT [facility] [employer] [facility] Blood Collection / Unknown 01/21/2019 10:14 AM CDT 01/21/2019 10:29 AM CDT Narrative [facility] [employer] [facility] - 01/21/2019 11:42 AM CDT TRIGLYCERIDES ? mg/dL Normal ?< 150 Borderline High ?150 - 199 High ? 200 - 499 Very High ? >= 500 Based on AHA/NCEP Guidelines. Alize Arteaga MD CHEMISTRY ORDER [place] [employer] [facility]# [id number] [address] [place] [address] documented in this encounter Visit Diagnoses Diagnosis [...] Units documented in this encounter Care Teams Volunteer Services Specialist Relationship Specialty Start Date End Date Guerrero Middleton PA-C PCP - General Physician Editor Continuity And Script 02/13/18 documented as of this encounter
--- OUTSIDE RECORDS SUMMARY | 2024-05-03 21:55 | XMS_ITS | Encounter Summary ---
Author Organization Address [address] [place] [address] Care Team Providers Care Economic Geographer Name Role Phone Guerrero Middleton PA-C Primary Care Provide r Reason for Visit * Reason Comments Abdominal Pain upper abd pain that wraps around back began yesterday evening. + nausea, vomiting. LBM was yesterday. BM was normal. denies fever and urinary symptoms. pain is worse with movement * Auth/Cert Specialty Diagnoses / Procedures Referred By Tequila bowman Referred To Contact Emergency Medicine [facility] Emergency Dept [address] [place] [address] Referral ID Status Reason Start Date Expiration Date Visits Re quested Visits Authorized [id number] 1 1 Encounter Details Date Type Department Care Team (Latest Contact Info) Description 04/11/2019 11:43 PM OCTAVE BOARD ASSEMBLER - 04/16/2019 4:42 PM OCTAVE BOARD ASSEMBLER Hospital Encounter [facility] Trauma and Surgery [address] [place] [address] Herrera Maza MD [address] [place] [address] Pernell Tapia MD [address] [place] [address] [place] [address] [place] [address] Laurie Casper MD [address] [facility] [address] [facility] [address] Jeffry Salazar MD [address] [facility] [address] [facility]6[place] [address] Acute on chronic pancreatitis Discharge [...] How often do you attend chur or scientology services? Never 08/21/2018 Do you [...] Comments Blood Pressure 100/52 04/16/2019 11:56 AM OCTAVE BOARD ASSEMBLER Pulse 77 04/16/2019 11:56 AM OCTAVE BOARD ASSEMBLER Temperature 36.9 ??C (98.5 ??F) 04/16/2019 11:[address] Respiratory Rate 16 04/16/2019 11:56 AM OCTAVE BOARD ASSEMBLER Oxygen Saturation 97% 04/16/2019 11:56 AM OCTAVE BOARD ASSEMBLER Inhaled Oxygen Concentration - - Weight 89.5 kg (197 lb 4.8 oz) 04/14/2019 4:11 A M OCTAVE BOARD ASSEMBLER Height 165.1 cm (5' 5 ) 04/11/2019 11:15 PM OCTAVE BOARD ASSEMBLER Body Mass Index 32.83 04/11/2019 11:15 PM OCTAVE BOARD ASSEMBLER documented in this encounter Discharge Summaries * Jeffry Salazar MD - 04/16/2019 9:14 AM CST [facility] Discharge Summary Patient Name: Casandra Doss / [...] 1 Tablet (10 mg) by mouth daily electrical laboratory technician. Signed by: Blake Rudd MD Quantity: 30 [...] Your Medications These medications were sent to [facility] [address] [place] [address], [facility] [address] ?? oxyCODONE-acetaminophen 5-325 mg tablet Consults: Significant [...] Signed: Jeffry Salazar MD 04/16/2019, 5:49 PM VE BOARD ASSEMBLER documented in this encounter Discharge Instructions * Discharge Instructions* Jeffry Salazar MD - 04/16/2019 1:54 PM OCTAVE BOARD ASSEMBLER Your discharging physicians are Jeffry Salazar MD /Jeffry Salazar MD and may be reached at [phone] for any questions or concerns until you [...] DIET Your diet is: Low fat diabetic. VE BOARD ASSEMBLER documented in this encounter Medications at Time [...] 1 Tablet (10 mg) by mouth daily electrical laboratory technician. 30 Tablet 5 04/08/2019 10/12/2019 levothyroxine 200 [...] this encounter Progress Notes * Nery Viramontes APPLICATION PACKAGER - 04/16/2019 11:26 AM CST Images from the original note were not included. [facility] INPATIENT DIABETES CONSULT NOTE Name: Casandra Doss : 1975 Date: 04/16/2019 Room/Bed: [facility]/ Hospital Day: LOS: 4 days SUBJECTIVE Patient [...] questions. Lian ViramontesSTELLA CDE 7A - 7P [phone] cell # 7P - 7A [phone] pager MEDICATIONS: Current Facility-Administered Medications Medication Dose Route Frequency Provider Last Rate Last Dose ??? insulin lispro (HumaLOG) variable dose injection subCUT QID Meals Nery Viramontes APPLICATION PACKAGER ??? insulin lispro (HumaLOG) injection 2 Units 2 Units subCUT TID Meals Nery Viramontes APPLICATION PACKAGER 2 Units at 04/16/19 0911 ??? [COMPLETED] [...] TUNNELED VENOUS CATHETER PLACEMENT Right 09/29/2018 ??? IN ESOPHAGOGASTRODUODENOSCOPY TRANSORAL DIAGNOSTIC N/A 03/08/2018 ESOPHAGOGASTRODUODENOSCOPY performed by Ceasar Vega MD at [facility] GI LAB FAMILY HISTORY: Family History Problem [...] level: Not on file Occupational History Employer: [employer] Social Needs ??? Financial resource strain: Not [...] Gets together: Three times a week Attends scientology service: Never Active member of club or [...] AM GLUCPOC 191 (H) 04/14/2019 09:23 PM VE BOARD ASSEMBLER Associated attestation - Blake Rudd MD - 04/17/2019 7:10 AM OCTAVE BOARD ASSEMBLER Discussed with APPLICATION PACKAGER. Agree with documentation. * Bibiana Rockwell NP - 04/16/2019 1:27 AM CST [facility] 04/16/19 1:27 AM Problem: I [...] of that protocol. - Please contact Endocrine APPLICATION PACKAGER for assistance. Bibiana Rockwell NP Submit an eTicket VE BOARD ASSEMBLER * Nery Viramontes NP - 04/15/2019 9:49 AM CST Images from the original note were not included. [facility] INPATIENT DIABETES CONSULT NOTE Name: [...] call or page with questions. STELLA Bright [facility] 7A - 7P [phone] cell # 7P - 7A [phone] pager MEDICATIONS: Current Facility-Administered Medications Medication Dose [...] tablet 200 mcg 200 mcg Oral Daily Maoc Duque MD 200 mcg at 04/15/19826 ??? [...] NaCl 0.9% 1000 mL infusion IV Continuous Mcao Duque MD Stopped at 04/14/19 1721 ??? [...] TUNNELED VENOUS CATHETER PLACEMENT Right 09/29/2018 ??? IN ESOPHAGOGASTRODUODENOSCOPY TRANSORAL DIAGNOSTIC N/A 03/08/2018 ESOPHAGOGASTRODUODENOSCOPY performed by Ceasar Vega MD at [facility] GI LAB FAMILY HISTORY: Family History Problem [...] level: Not on file Occupational History Employer: [employer] Social Needs ??? Financial resource strain: Not [...] Gets together: Three times a week Attends scientology service: Never Active member of club or [...] AM GLUCPOC 208 (H) 04/14/2019 12:19 AM VE BOARD ASSEMBLER Associated attestation - Blake Rudd MD - 04/17/2019 7:09 AM OCTAVE BOARD ASSEMBLER Discussed with APPLICATION PACKAGER. Agree with documentation. * Jeffry Salazar MD - 04/15/2019 9:45 AM CST [facility] Admit Date: 04/11/2019 Date [...] lab and test results. Jeffry Salazar MD VE BOARD ASSEMBLER * Jeffry Salazar MD - 04/14/2019 2:09 PM CST [facility] Admit Date: 04/11/2019 Date [...] lab and test results. Jeffry Salazar MD VE BOARD ASSEMBLER * Kortney Bowles PA - 04/14/2019 12:41 PM CST IR Patient with left port dysfunction. Patient had left port placed on 02/18/2019. IR to try and complete port dye study today if time. VE BOARD ASSEMBLER * Alize Arteaga MD - 04/13/2019 3:36 [...] the procedure. ?? Alize Arteaga MD, PhD Card Checker, therapeutic apheresis service [phone] ?? Procedure??notes:?L port not used for procedure. ??R bard port and R AC used for procedure. ??Patient tolerated procedure well until about nursing home through, when peripheral site failed. Okay'd aborting procedure. 0.6 volume completed. VE BOARD ASSEMBLER * Puja Paz RN - 04/13/2019 2:07 PM CST Therapeutic plasma exchange number 1 stopped early due to peripheral site leaking. Okay per Dr. Arteaga. 0.6 fluid volume completed. -74 fluid balance. 5% albumin used as replacement fluid. R chestBARD port remains accessed and hep locked. VE BOARD ASSEMBLER * Laurie Casper MD - 04/13/2019 12:10 PM CST [facility] Adult Progress Note Admit Date: 04/11/2019 [...] lab and test results. Laurie Casper MD VE BOARD ASSEMBLER * Laurie Casper MD - 04/12/2019 9:44 AM CST Hospitalist Addendum Patient seen and examined; plan of care reviewed. Endocrine consulted Laurie Casper MD VE BOARD ASSEMBLER * Vicki Garcia NP - 04/12/2019 3:22 AM CST [facility] 04/12/19 3:22 AM Problem: request [...] hospitalist Vicki Garcia NP Submit an eTicket VE BOARD ASSEMBLER documented in this encounter H&P Notes * Maco Duque MD - 04/12/2019 3:24 AM CST [facility] Adult Hospitalist Admission H & P [...] TUNNELED VENOUS CATHETER PLACEMENT Right 09/29/2018 ??? IN ESOPHAGOGASTRODUODENOSCOPY TRANSORAL DIAGNOSTIC N/A 03/08/2018 ESOPHAGOGASTRODUODENOSCOPY performed by Ceasar Vega MD at [facility] GI LAB Current Medications: Medications Prior to Admission Medication Sig Dispense Refill Last Dose ??? empagliflozin (JARDIANCE) 10 mg tablet Take 1 Tablet (10 mg) by mouth daily electrical laboratory technician. 30 Tablet 5 ??? HYDROcodone-acetaminophen (NORCO) 5-325 [...] meter GFR, >60 >=60 mL/min/1.73 sq meter PRICING CONSULTANT NAME CRISELDA ZUNIGA) POC GLUCOSE Result Value Ref Range POC GLUCOSE 249 (H) 74 - 99 mg/dL PRICING CONSULTANT NAME BROWN REED ECG personally reviewed and [...] the above results. Maco Duque MD P: [phone] VE BOARD ASSEMBLER documented in this encounter Consult Notes * Nery Viramontes NP - 04/13/2019 9:25 AM CSTAssociated Order(s): IP CONSULT TO ENDOCRINOLOGY Images from the original note were not included. [facility] INPATIENT DIABETES CONSULT NOTE Name: Casandra Doss [...] consult. STELLA Bright CDE 7A - 7P [phone] cell # 7P - 7A [phone] pager MEDICATIONS: Current Facility-Administered Medications Medication Dose Route Frequency Provider Last Rate Last Dose ??? insulin glargine (LANTUS) injection 12 Units 12 Units subCUT Daily Nery Viramnotes NP ??? insulin lispro (HumaLOG) variable dose [...] TUNNELED VENOUS CATHETER PLACEMENT Right 09/29/2018 ??? IN ESOPHAGOGASTRODUODENOSCOPY TRANSORAL DIAGNOSTIC N/A 03/08/2018 ESOPHAGOGASTRODUODENOSCOPY performed by Ceasar Vega MD at [facility] GI LAB FAMILY HISTORY: Family History Problem [...] level: Not on file Occupational History Employer: [employer] Social Needs ??? Financial resource strain: Not [...] Gets together: Three times a week Attends scientology service: Never Active member of club or [...] AM GLUCPOC 171 (H) 04/12/2019 11:55 PM VE BOARD ASSEMBLER Associated attestation - Blake Rudd MD - 04/14/2019 7:57 PM OCTAVE BOARD ASSEMBLER Discussed with APPLICATION PACKAGER. Agree with documentation. documented in this encounter ED Notes * Brown Reed RN - 04/12/2019 2:22 AM CST Medication given per MD order. Patient/family has been informed about benefits and any potential clinically significant side effects or other concerns regarding the administration of the drug they have just been given. VE BOARD ASSEMBLER * Brown Reed RN - 04/12/2019 2:18 AM CST Pt requesting more pain medication. MD aware. VE BOARD ASSEMBLER * Brown Reed RN - 04/12/2019 2:15 AM CST Griselda lithopone charger notified of patient coming to floor. VE BOARD ASSEMBLER * Brown Reed RN - 04/12/2019 1:52 AM CST Pt to CT via stretcher. VE BOARD ASSEMBLER * Peg Rincon RN - 04/12/2019 1:24 AM CST Report given to CLAU Isabel. Pt denies further needs at this time. Assessment remains unchanged. Even unlabored breathing pattern noted. Call light within reach and encouraged to use. VE BOARD ASSEMBLER * Brown Reed RN - 04/12/2019 1:18 AM CST Report received from Francisco OLGUIN. Care assumed. VE BOARD ASSEMBLER * Peg Rincon RN - 04/12/2019 12:23 AM CST Pt came to ed c/o abdominal pain in upper quadrants. Pt stated pain started tonight and has increasingly gotten worse. Hx of pancreatitis. -fever/chills. +n/v. x3-4 episodes of vomit. +constipation/ pressure. Pt stated +pressure to upper quadrant that radiates around to her back. Aox4. Even unlabored breathing pattern. MD Maza at pt bedside. VE BOARD ASSEMBLER * Herrera Maza MD - 04/11/2019 11:08 [...] 1 Tablet (10 mg) by mouth daily electrical laboratory technician. Qty: 30 Tablet, Refills: 5 HYDROcodone-acetaminophen (NORCO) [...] CREATININE 0.40 (*) GFR >60 GFR, >60 PRICING CONSULTANT NAME CRISELDA ZUNIGA (AMBREEN) POC GLUCOSE - Abnormal POC GLUCOSE 249 (*) PRICING CONSULTANT NAME BROWN REED LIPASE - Normal LIPASE [...] 12:48 AM: Discussed case with Dr. Tapia [facility] Hospitalist. Plan to admit patient to medical floor. Patient made aware of plan for admission. She is agreeable. ED provider and ED nurse verbally discussed patient plan of care at this time. MDM Summary Statement: The patient presented to the emergency room with abdominal pain. She has a history of complicated pancreatitis. She is followed by the [facility]. Her amylase and lipase were unremarkable, [...] 1 Tablet (10 mg) by mouth daily electrical laboratory technician. Qty: 30 Tablet, Refills: 5 HYDROcodone-acetaminophen (NORCO) [...] Date/Time Comment Admit Stable Herrera Maza MD [place] Apr 12, 2019 1:04 AM ATTESTATION STATEMENTS [...] and medical decision making performed by me. VE BOARD ASSEMBLER documented in this encounter Miscellaneous Notes * Care Plan - Thuy Tompkins RN - 04/16/2019 4:15 PM CST Casandra Doss will be discharged via ambulatory to home. Casandra Doss is accompanied by family member(s) and will be transported via private vehicle. Discharge instructions given along with prescription. PIV dc'd. Family at bedside. Pain manageable.Denies needs. Verbalized understanding. Transport called. VE BOARD ASSEMBLER * Care Plan - Yady Medel, CLAU - 04/16/2019 6:33 AM CST Receiving dilaudid q4 and PO analgesics q4 Slept majority of shift since arrival from previous unit Up SBA UOP per hat Charisse diest Informed pt of changes to blood glucose monitoring Pt agreeable to plan of care VE BOARD ASSEMBLER * Care Plan - Yady Medel, CLAU - 04/16/2019 2:50 AM CST Undress and Assess performed by the following two coworkers:CLAU Conteh and Brooks Mcbride Admission or upon transfer to: [facility] ~~~~~~~~~~~~~~~~~~~~~~~~~~~~ Is the patient a paraplegic/quadriplegic? no Does the patient have new purple/sissy/dark red over bony prominences? no Does the patient have an ostomy? no Is the length of stay >2 weeks? no ~If ANY answer 'yes'- please consult Wound Care~ Patient does not have skin breakdown. Location/ Description of breakdown: Wound care consult was not initiated. Is there skin breakdown under any Food Dehydrator Operator (splint, ETT ha, c-collar)? If yes, please describe: n/a Are there currently any skin protective dressings in place? If yes, please describe skin under dressing: n/a Protective Dressings Applied to Sacrum and Heels (Mepilex) as per Pathway? No VE BOARD ASSEMBLER * Care Plan - Bart Daniels RN - 04/15/2019 6:33 AM CST End of Shift Note: Neuro: alert and oriented x 4. Receiving Dilaudid Q 2 PRN for abdominal pain Resp: room air to 1L nasal cannula while sleeping. CV: sinus rhythm: 70-80, SBP: 100s GI: /: gets up to the bathroom. Skin: no skin issues VE BOARD ASSEMBLER * Care Plan - Puja Holden LMSW [...] follow for discharge planning. LOBO Reyes, DACIA [phone] Day 1 - Current ([facility]: Adult and Obstetrics) Patient, family, or healthcare designee is participating in individual care plan process Outcome: Met Problem: Discharge Planning Goal: Identify discharge needs upon admission and through discharge Description Outcome: Progressing VE BOARD ASSEMBLER documented in this encounter Plan of Treatment Upcoming Encounters Date Type Department Care Team (Late st Contact Info) Description 09/14/2024 3:00 PM CDT Office Visit [facility] Heart and Vascular - [place] [address] [place] [address] Marlys Mayer MD [address] [place] [address] documented as of this encounter Procedures Procedure Name Priority Date/Time Associated Diagnosis Comments POC GLUCOSE Routine 04/16/2019 1:37 PM OCTAVE BOARD ASSEMBLER POC GLUCOSE Routine 04/16/2019 9:02 AM OCTAVE BOARD ASSEMBLER POC GLUCOSE Routine 04/16/2019 1:01 AM OCTAVE BOARD ASSEMBLER POC GLUCOSE Routine 04/16/2019 12:32 AM OCTAVE BOARD ASSEMBLER POC GLUCOSE Routine 04/15/2019 7:42 PM OCTAVE BOARD ASSEMBLER POC GLUCOSE Routine 04/15/2019 4:26 PM OCTAVE BOARD ASSEMBLER POC GLUCOSE Routine 04/15/2019 11:39 AM OCTAVE BOARD ASSEMBLER POC GLUCOSE Routine 04/15/2019 7:19 AM OCTAVE BOARD ASSEMBLER POC GLUCOSE Routine 04/15/2019 3:56 AM OCTAVE BOARD ASSEMBLER TRIGLYCERIDE Routine 04/15/2019 3:22 AM OCTAVE BOARD ASSEMBLER Hypertriglyceridemia Mixed hyperlipidemia MAGNESIUM LEVEL Routine 04/15/2019 3:22 AM OCTAVE BOARD ASSEMBLER BASIC METABOLIC PANEL Routine 04/15/2019 3:22 AM OCTAVE BOARD ASSEMBLER POC GLUCOSE Routine 04/15/2019 1:10 AM OCTAVE BOARD ASSEMBLER POC GLUCOSE Routine 04/14/2019 9:23 PM OCTAVE BOARD ASSEMBLER POC GLUCOSE Routine 04/14/2019 8:13 PM OCTAVE BOARD ASSEMBLER POC GLUCOSE Routine 04/14/2019 5:13 PM OCTAVE BOARD ASSEMBLER IR VENOUS ACCESS Routine 04/14/2019 3:59 PM OCTAVE BOARD ASSEMBLER POC GLUCOSE Routine 04/14/2019 11:54 AM OCTAVE BOARD ASSEMBLER TRIGLYCERIDE Stat 04/14/2019 9:24 AM OCTAVE BOARD ASSEMBLER Acute on chronic pancreatitis POC GLUCOSE Routine 04/14/2019 7:51 AM OCTAVE BOARD ASSEMBLER POC GLUCOSE Routine 04/14/2019 4:03 AM OCTAVE BOARD ASSEMBLER POC GLUCOSE Routine 04/14/2019 12:19 AM OCTAVE BOARD ASSEMBLER POC GLUCOSE Routine 04/13/2019 8:57 PM OCTAVE BOARD ASSEMBLER POC GLUCOSE Routine 04/13/2019 8:12 PM OCTAVE BOARD ASSEMBLER POC GLUCOSE Routine 04/13/2019 4:02 PM OCTAVE BOARD ASSEMBLER POC GLUCOSE Routine 04/13/2019 12:12 PM OCTAVE BOARD ASSEMBLER POC GLUCOSE Routine 04/13/2019 11:06 AM OCTAVE BOARD ASSEMBLER POC GLUCOSE Routine 04/13/2019 10:07 AM OCTAVE BOARD ASSEMBLER POC GLUCOSE Routine 04/13/2019 9:07 AM OCTAVE BOARD ASSEMBLER POC GLUCOSE Routine 04/13/2019 8:14 AM OCTAVE BOARD ASSEMBLER POC GLUCOSE Routine 04/13/2019 7:02 AM OCTAVE BOARD ASSEMBLER POC GLUCOSE Routine 04/13/2019 6:07 AM OCTAVE BOARD ASSEMBLER POC GLUCOSE Routine 04/13/2019 4:59 AM OCTAVE BOARD ASSEMBLER POC GLUCOSE Routine 04/13/2019 4:06 AM OCTAVE BOARD ASSEMBLER CBC WITHOUT DIFFERENTIAL Routine 04/13/2019 3:40 AM OCTAVE BOARD ASSEMBLER MAGNESIUM LEVEL Routine 04/13/2019 3:40 AM OCTAVE BOARD ASSEMBLER BASIC METABOLIC PANEL Routine 04/13/2019 3:40 AM OCTAVE BOARD ASSEMBLER POC GLUCOSE Routine 04/13/2019 2:56 AM OCTAVE BOARD ASSEMBLER POC GLUCOSE Routine 04/13/2019 2:03 AM OCTAVE BOARD ASSEMBLER POC GLUCOSE Routine 04/13/2019 1:01 AM OCTAVE BOARD ASSEMBLER POC GLUCOSE Routine 04/12/2019 11:55 PM OCTAVE BOARD ASSEMBLER POC GLUCOSE Routine 04/12/2019 11:01 PM OCTAVE BOARD ASSEMBLER POC GLUCOSE Routine 04/12/2019 10:05 PM OCTAVE BOARD ASSEMBLER POC GLUCOSE Routine 04/12/2019 8:53 PM OCTAVE BOARD ASSEMBLER POC GLUCOSE Routine 04/12/2019 7:59 PM OCTAVE BOARD ASSEMBLER POC GLUCOSE Routine 04/12/2019 7:05 PM OCTAVE BOARD ASSEMBLER POC GLUCOSE Routine 04/12/2019 6:14 PM OCTAVE BOARD ASSEMBLER POC GLUCOSE Routine 04/12/2019 5:35 PM OCTAVE BOARD ASSEMBLER POC GLUCOSE Routine 04/12/2019 4:14 PM OCTAVE BOARD ASSEMBLER POC GLUCOSE Routine 04/12/2019 2:57 PM OCTAVE BOARD ASSEMBLER POC GLUCOSE Routine 04/12/2019 2:08 PM OCTAVE BOARD ASSEMBLER POC GLUCOSE Routine 04/12/2019 12:21 PM OCTAVE BOARD ASSEMBLER TRIGLYCERIDE Routine 04/12/2019 11:38 AM OCTAVE BOARD ASSEMBLER BASIC METABOLIC PANEL Routine 04/12/2019 11:38 AM OCTAVE BOARD ASSEMBLER POC GLUCOSE Routine 04/12/2019 10:39 AM OCTAVE BOARD ASSEMBLER POC GLUCOSE Routine 04/12/2019 8:08 AM OCTAVE BOARD ASSEMBLER POC GLUCOSE Routine 04/12/2019 6:49 AM OCTAVE BOARD ASSEMBLER POC GLUCOSE Stat 04/12/2019 2:12 AM [address]AVE BO[address] ABDOMEN PELVIS W CONTRAST Stat 04/12/2019 2:06 AM OCTAVE BOARD ASSEMBLER POC CREATININE Stat 04/12/2019 1:36 AM OCTAVE BOARD ASSEMBLER URINALYSIS W/REFLEX MICROSCOPIC Stat 04/12/2019 12:25 AM OCTAVE BOARD ASSEMBLER CBC WITH DIFFERENTIAL Stat 04/12/2019 12:16 AM OCTAVE BOARD ASSEMBLER LIPASE Stat 04/12/2019 12:16 AM OCTAVE BOARD ASSEMBLER AMYLASE Stat 04/12/2019 12:16 AM OCTAVE BOARD ASSEMBLER ETHANOL LEVEL Stat 04/12/2019 12:16 AM OCTAVE BOARD ASSEMBLER COMPREHENSIVE METABOLIC PANEL Stat 04/12/2019 12:16 AM OCTAVE BOARD ASSEMBLER EKG 12-LEAD Stat 04/11/2019 11:55 PM OCTAVE BOARD ASSEMBLER documented in this encounter Results * (ABNORMAL) POC GLUCOSE (04/16/2019 1:37 PM OCTAVE BOARD ASSEMBLER) GLUCOSE POC 168(H) 74 - 99 mg/dL 04/16/2019 1:37 PM OCTAVE BOARD ASSEMBLER [facility]OR[facility] PRICING CONSULTANT NAME POC THUY TOMPKINS 04/16/2019 1:37 PM OCTAVE BOARD ASSEMBLER [facility] Blood, whole 04/16/2019 1:37 PM OCTAVE BOARD ASSEMBLER 04/16/2019 1:46 PM OCTAVE BOARD ASSEMBLER Jeffry Salazar MD POINT OF CARE TESTJERONIMO Serrano Performing Organization Address [facility]/ZIP Co de Phone Number [facility]# [id number] [address] [place] [address] * (ABNORMAL) POC GLUCOSE (04/16/2019 9:02 AM OCTAVE BOARD ASSEMBLER) GLUCOSE POC 155(H) 74 - 99 mg/dL 04/16/2019 9:02 AM OCTAVE BOARD ASSEMBLER [employer] LABORATORY SERVICES [facility] COMMENT, GLU POC Notified RN/MD 04/16/2019 9:02 AM OCTAVE BOARD ASSEMBLER [facility] SERVICES [facility] PRICING CONSULTANT NAME POC DAVEY MACDONALD 04/16/2019 9:02 AM OCTAVE BOARD ASSEMBLER [employer] [facility]AT[facility] SERVICES [facility] Blood, whole 04/16/2019 9:02 AM OCTAVE BOARD ASSEMBLER 04/16/2019 9:10 AM OCTAVE BOARD ASSEMBLER Jeffry Salazar MD POINT OF CARE TESTJERONIMO Serrano Performing Organization Address [facility] Co de Phone Number [facility] [employer] [facility]# [id number] [address] [place] [address] * (ABNORMAL) POC GLUCOSE (04/16/2019 1:01 AM OCTAVE BOARD ASSEMBLER) GLUCOSE POC 161(H) 74 - 99 mg/dL 04/16/2019 1:01 AM OCTAVE BOARD ASSEMBLER [employer] [facility]ORAT[facility] SERVICES [facility] COMMENT, GLU POC Notified RN/MD 04/16/2019 1:01 AM OCTAVE BOARD ASSEMBLER [employer] LABORATORY SERVICES [facility] PRICING CONSULTANT NAME POC CHRISTINE GAFFNEY 04/16/2019 1:01 AM OCTAVE BOARD ASSEMBLER [employer] [facility]AT[facility] SERVICES [facility] Blood, whole 04/16/2019 1:01 AM OCTAVE BOARD ASSEMBLER 04/16/2019 1:12 AM OCTAVE BOARD ASSEMBLER Jeffry Salazar MD POINT OF CARE TESTJERONIMO Serrano [facility] [employer] [facility] CLIA# [id number] [address] [place] [address] * (ABNORMAL) POC GLUCOSE (04/16/2019 12:32 AM OCTAVE BOARD ASSEMBLER) GLUCOSE POC 175(H) 74 - 99 mg/dL 04/16/2019 12:32 AM OCTAVE BOARD ASSEMBLER [facility] PRICING CONSULTANT NAME POC BART DANIELS 04/16/2019 12:32 AM OCTAVE BOARD ASSEMBLER [facility] SERVICES [facility] Blood, whole 04/16/2019 12:3 2 AM OCTAVE BOARD ASSEMBLER 04/16/2019 12:44 AM OCTAVE BOARD ASSEMBLER Jeffry Salazar MD POINT OF CARE FLY Maggie Performing Organization Address [facility] Co de Phone Number [facility] CLIA# [id number] [address] [place] [address] * (ABNORMAL) POC GLUCOSE (04/15/2019 7:42 PM OCTAVE BOARD ASSEMBLER) GLUCOSE POC 278(H) 74 - 99 mg/dL 04/15/2019 7:42 PM OCTAVE BOARD ASSEMBLER [facility] SERVICES [facility] COMMENT, GLU POC Notified RN/MD 04/15/2019 7:42 PM OCTAVE BOARD ASSEMBLER [facility] SERVICES [facility] PRICING CONSULTANT NAME POC HIRAM SEPULVEDA 04/15/2019 7:42 PM OCTAVE BOARD ASSEMBLER [facility] SERVICES [facility] Blood, whole 04/15/2019 7:42 PM OCTAVE BOARD ASSEMBLER 04/15/2019 8:00 PM OCTAVE BOARD ASSEMBLER Jeffry Salazar MD POINT OF CARE VINICIUSJERONIMO Maggie Performing Organization Address [facility]/ZIP Co de Phone Number [facility] [employer] [facility] CLIA# [id number] [address] [place] [address] * (ABNORMAL) POC GLUCOSE (04/15/2019 4:26 PM [employer]ARD [employer]SEMBLER) GLUCOSE POC 135(H) 74 - 99 mg/dL 04/15/2019 4:26 PM [employer] [facility] PRICING CONSULTANT NAME POC GENOVEVA ALBERTS 04/15/2019 4:26 PM [facility] Blood, whole 04/15/2019 4:26 PM [employer]ER 04/15/2019 4:32 PM [employer] Jeffry Salazar MD POINT OF CARE TESTIN Maggie Performing Organization Address [facility] Co de Phone Number [facility] [employer] [facility]# [id number] [address] [place] [address] * (ABNORMAL) POC GLUCOSE (04/15/2019 11:39 AM [employer]ARD ASSEMBLER) GLUCOSE POC 107(H) 74 - 99 mg/dL 04/15/2019 11:39 AM [employer]SEM[employer] LABORATORY SERVICES [facility] COMMENT, GLU POC Notified RN/MD 04/15/2019 11:39 AM [employer] LABORATORY SERVICES [facility] PRICING CONSULTANT NAME POC GENOVEVA ALBERTS 04/15/2019 11:39 AM [employer] LABORATORY SERVICES [facility] Blood, whole 04/15/2019 11:3 9 AM [employer]BLER 04/15/2019 12:00 PM [employer] Jeffry Salazar MD POINT OF CARE TESTJERONIMO Serrano Performing Organization Address [facility] Co de Phone Number [facility] [employer] [facility]# [id number] [address] [place] [address] * (ABNORMAL) POC GLUCOSE (04/15/2019 7:19 AM [employer]SEMBLER) GLUCOSE POC 117(H) 74 - 99 mg/dL 04/15/2019 7:19 AM [employer] LABORATORY SERVICES [facility] COMMENT, GLU POC Notified RN/MD 04/15/2019 7:19 AM [employer] [facility] PRICING CONSULTANT NAME POC FLAKO BELLA 04/15/2019 7:19 AM [employer]ARD ASSEMBLER [employer] LABORATORY SERVICES [facility] Blood, whole 04/15/2019 7:19 AM [employer] ASSEMBLER 04/15/2019 7:28 AM [employer]SEMBLER Jeffry Salazar MD POINT OF CARE FLY Serrano Performing Organization Address [facility] Co de Phone Number [facility]# [id number] [address] [place] [address] * (ABNORMAL) POC GLUCOSE (04/15/2019 3:56 AM [employer] ASSEMBLER) GLUCOSE POC 133(H) 74 - 99 mg/dL 04/15/2019 3:56 AM [employer]SEMBLER [facility] LABORATORY [facility] PRICING CONSULTANT NAME POC BART DANIELS 04/15/2019 3:56 AM [employer]ARD ASSEMBLER [facility] [employer] [facility] Blood, whole 04/15/2019 3:56 AM [employer] ASSEMBLER 04/15/2019 4:05 AM [employer]BLER Jeffry Salazar MD POINT OF CARE FLY Serrano Performing Organization Address [facility] de Phone Number [facility] [employer] [facility]# [id number] [address] [place] [address] * (ABNORMAL) TRIGLYCERIDE (04/15/2019 3:22 AM [employer] ASSEMBLER) TRIGLYCERIDE 314(H) <150 mg/dL 04/15/2019 9:40 AM [employer]ARD ASSEMBLER [facility] [employer] [facility] Blood Venipuncture / Unknown 04/15/2019 3:22 AM [employer] ASSEMBLER 04/15/2019 3:28 AM [employer]ARD ASSEMBLER Narrative [facility] LABORATORY [facility] - 04/15/2019 9:40 AM [employer]SEMBLER TRIGLYCERIDES ? mg/dL Normal ?< 150 Borderline High ?150 - 199 High ? 200 - 499 Very High ? >= 500 Based on AHA/NCEP Guidelines. Alize Arteaga MD CHEMISTRY ORDER OSVALDO [facility] [employer] [facility] CLIA# [id number] [address] [place] [address] * MAGNESIUM LEVEL (04/15/2019 3:22 AM [employer]ARD ASSEMBLER) MAGNESIUM 1.7 1.6 - 2.6 mg/dL 04/15/2019 4:13 AM [facility] [employer] [facility] Blood Venipuncture / Unknown 04/15/2019 3:22 AM [employer]BLER 04/15/2019 3:28 AM [employer]BLER Jeffry Salazar MD CHEMISTRY ORDERABLES [facility] [employer] [facility] CLIA# [id number] [address] [place] [address] * (ABNORMAL) BASIC METABOLIC PANEL (04/15/2019 3:22 AM [employer] ASSEMBLER) SODIUM 139 136 - 145 mmol/L 04/15/2019 4:13 AM [facility] [employer] LABORATORY SERVICES - [facility] POTASSIUM 3.7 3.5 - 5.0 mmol/L 04/15/2019 4:13 AM [facility] [employer] LABORATORY SERVICES - . [facility] CHLORIDE 105 98 - 107 mmol/L 04/15/2019 4:13 AM [facility] [employer] LABORATORY SERVICES - . [place] CO2 26 22 - 29 mmol/L 04/15/2019 4:13 AM [facility] [employer] LABORATORY SERVICES - . [place] CALCIUM 8.4(L) 8.6 - 10.2 mg/dL 04/15/2019 4:13 AM [facility] [employer] LABORATORY SERVICES - [facility] BUN 3(L) 6 - 20 mg/dL 04/15/2019 4:13 AM [facility] [employer] LABORATORY SERVICES - . [place] CREATININE 0.54 0.51 - 0.95 mg/dL 04/15/2019 4:13 AM [facility] [employer] LABORATORY SERVICES - . [place] GLUCOSE 136(H) 74 - 99 mg/dL 04/15/2019 4:13 AM [facility] [employer] LABORATORY SERVICES - [facility] GFR >60 >=60 mL/min/1.7 3 sq meter 04/15/2019 4:13 AM [facility] [employer] [facility] Comment: eGFR has not been validated for [...] mL/min/1.7 3 sq meter 04/15/2019 4:13 AM [facility] [employer] [facility] ANION GAP 8 8 - 16 mmol/L 04/15/2019 4:13 AM [facility] [employer] [facility] Blood Venipuncture / Unknown 04/15/2019 3:22 AM [employer] ASSEMBLER 04/15/2019 3:28 AM [employer]BLER Jeffry Salazar MD CHEMISTRY ORDERABLES Performing Organization Address City/[facility]/ZIP Co de Phone Number [facility] [employer] [facility]# [id number] [address] [place] [address] * (ABNORMAL) POC GLUCOSE (04/15/2019 1:10 AM [employer]ARD ASSEMBLER) [facility] Signature GLUCOSE POC 120(H) 74 - 99 mg/dL 04/15/2019 1:10 AM [facility] [employer] [facility] PRICING CONSULTANT NAME OLLIE BART DANIELS 04/15/2019 1:10 AM [facility] Blood, whole 04/15/2019 1:10 AM [employer]SEMBLER 04/15/2019 1:20 AM [employer]BLER Jeffry Salazar MD POINT OF CARE TESTIN G Performing Organization Address [facility]/ZIP Co de Phone Number [facility]# [id number] [address] [place] [address] * (ABNORMAL) POC GLUCOSE (04/14/2019 9:23 PM [employer]ARD ASSEMBLER) GLUCOSE POC 191(H) 74 - 99 mg/dL 04/14/2019 9:23 PM [employer]ARD ASSEMBLER [facility] LABORATORY SERVICES - [facility] PRICING CONSULTANT NAME POC BART DANIELS 04/14/2019 9:23 PM [employer] ASSEMBLER [facility] LABORATORY SERVICES [facility] Blood, whole 04/14/2019 9:23 PM [employer]SEMBLER 04/14/2019 9:34 PM [employer]SEMBLER Jeffry Salazar MD POINT OF CARE TESTJERONIMO Serraon [facility] LABORATORY [facility] CLIA# [id number] [address] [place] [address] * (ABNORMAL) POC GLUCOSE (04/14/2019 8:13 PM [employer]ARD ASSEMBLER) GLUCOSE POC 165(H) 74 - 99 mg/dL 04/14/2019 8:13 PM [employer] BOARD ASSEMBLER [facility] LABORATORY SERVICES [facility] COMMENT, GLU POC Notified RN/MD 04/14/2019 8:13 PM [employer]ARD ASSEMBLER [facility] LABORATORY SERVICES [facility] PRICING CONSULTANT NAME POC DEIDRE HSIEH 04/14/2019 8:13 PM [employer]ARD ASSEMBLER [facility] LABORATORY SERVICES [facility] Blood, whole 04/14/2019 8:13 PM [employer] ASSEMBLER 04/14/2019 9:05 PM [employer] ASSEMBLER Jeffry Salazar MD POINT OF CARE TESTJERONIMO Serrano [facility] LABORATORY [facility] CLIA# [id number] [address] [address] * (ABNORMAL) POC GLUCOSE (04/14/2019 5:13 PM [employer]ARD ASSEMBLER) GLUCOSE POC 189(H) 74 - 99 mg/dL 04/14/2019 5:13 PM [employer] BOARD ASSEMBLER [facility] LABORATORY SERVICES [facility] PRICING CONSULTANT NAME POC GENOVEVA ALBERTS 04/14/2019 5:13 PM [employer]ARD ASSEMBLER [facility] - [facility] Blood, whole 04/14/2019 5:13 PM [employer] ASSEMBLER 04/14/2019 5:21 PM [employer] ASSEMBLER Jeffry Salazar MD POINT OF CARE TESTIN G [facility]# [id number] [address] [place] [address] * IR VENOUS ACCESS (04/14/2019 3:59 PM [employer]AVE BOARD ASSEMBLER) Anatomical Region Laterality Modality X-Ray Angiograph y 04/14/2019 3:59 PM [employer]ARD ASSEMBLER Impressions 04/17/2019 8:34 AM [employer]AVE BOARD ASSEMBLER IMPRESSION: [place] than expected left-sided PowerFlow port in need of replacement. DICTATION LOCATION: [address] Narrative 04/17/2019 8:34 AM [employer] BOARD ASSEMBLER FLUOROSCOPIC EVALUATION OF AN IMPLANTED POWER FLOW [...] replacement date has been agreed upon. IMPRESSION: [place] than expected left-sided PowerFlow port in need of replacement. DICTATION LOCATION: Location - [facility] Jeffry Salazar MD IR ORDERABLES * (ABNORMAL) POC GLUCOSE (04/14/2019 11:54 AM [employer]AVE BOARD ASSEMBLER) GLUCOSE POC 141(H) 74 - 99 mg/dL 04/14/2019 11:54 AM [facility] LABORATORY [facility] COMMENT, GLU POC Notified RN/MD 04/14/2019 11:54 AM [facility] PRICING CONSULTANT NAME POC COREY GARVEY 04/14/2019 11:54 AM [facility] Blood, whole 04/14/2019 11:5 4 AM [employer]BLER 04/14/2019 12:26 PM [employer]SEMBLER Jeffry Salazar MD POINT OF CARE TESTIN G Performing Organization Address [facility]/State/ZIP Co de Phone Number [facility]# [id number] [address] [place] [address] * (ABNORMAL) TRIGLYCERIDE (04/14/2019 9:24 AM [employer]AVE BOARD ASSEMBLER) [facility] TRIGLYCERIDE 382(H) <150 mg/dL 04/14/2019 10:04 AM [facility] Blood Venipuncture / Unknown 04/14/2019 9:24 AM [employer]BLER 04/14/2019 9:34 AM [employer]ARD ASSEMBLER Narrative [facility] - 04/14/2019 10:04 AM [employer]ARD ASSEMBLER TRIGLYCERIDES ? mg/dL Normal ?< 150 Borderline High ?150 - 199 High ? 200 - 499 Very High ? >= 500 Based on AHA/NCEP Guidelines. Alize Arteaga MD CHEMISTRY ORDER OSVALDO [facility]# [id number] [address] [place] [address] * (ABNORMAL) POC GLUCOSE (04/14/2019 7:51 AM [employer] BOARD ASSEMBLER) GLUCOSE POC 212(H) 74 - 99 mg/dL 04/14/2019 7:51 AM [employer]ARD ASSEMBLER [facility] LABORATORY SERVICES [facility] COMMENT, GLU POC Notified RN/ 04/14/2019 7:51 AM [facility] LABORATORY [facility] PRICING CONSULTANT NAME POC COREY GARVEY 04/14/2019 7:51 AM [employer]ARD ASSEMBLER [facility] LABORATORY SERVICES [facility] Blood, whole 04/14/2019 7:51 AM [employer] ASSEMBLER 04/14/2019 8:14 AM [employer] ASSEMBLER Jeffry Salazar MD POINT OF CARE TESTIN G Performing Organization Address City/[facility]/ZIP Co de Phone Number [facility] [employer] [facility] CLIA# [id number] [address] [place] [address] * (ABNORMAL) POC GLUCOSE (04/14/2019 4:03 AM [employer]ARD ASSEMBLER) GLUCOSE POC 220(H) 74 - 99 mg/dL 04/14/2019 4:03 AM [facility] LABORATORY SERVICES [facility] COMMENT, GLU POC Notified RN/ 04/14/2019 4:03 AM [facility] PRICING CONSULTANT NAME POC ROXANNE HSIEHRELLE 04/14/2019 4:03 AM [facility] Blood, whole 04/14/2019 4:03 AM [employer]SEMBLER 04/14/2019 4:11 AM [employer] ASSEMBLER Laurie Casper MD POINT OF CARE TESTIN G [facility] [employer] [facility] CLIA# [id number] [address] [place] [address] * (ABNORMAL) POC GLUCOSE (04/14/2019 12:19 AM [employer]ARD ASSEMBLER) GLUCOSE POC 208(H) 74 - 99 mg/dL 04/14/2019 12:19 AM [employer]ARD ASSEMBLER [facility] COMMENT, GLU POC Notified RN/ 04/14/2019 12:19 AM [employer]ARD ASSEMBLER [employer] LABORATORY SERVICES [facility] PRICING CONSULTANT NAME POC DEIDRE HSIEH 04/14/2019 12:19 AM [employer]SEMBLER [facility] LABORATORY [facility] Blood, whole 04/14/2019 12:1 9 AM [employer]ARD ASSEMBLER 04/14/2019 1:23 AM [employer] ASSEMBLER Laurie Casper MD POINT OF CARE TESTIN G Performing Organization Address [facility]/ZIP Co de Phone Number [facility] [employer] [facility] CLIA# [id number] [address] [place] [address] * (ABNORMAL) POC GLUCOSE (04/13/2019 8:57 PM [employer]AVE BOARD ASSEMBLER) GLUCOSE POC 175(H) 74 - 99 mg/dL 04/13/2019 8:57 PM [employer]ARD ASSEMBLER [facility] LABORATORY [facility] PRICING CONSULTANT NAME POC DONNA GALO (SARBHJIT) 04/13/2019 8:57 PM [employer]ARD ASSEMBLER [facility] LABORATORY [facility] Blood, whole 04/13/2019 8:57 PM [employer] ASSEMBLER 04/13/2019 9:14 PM [employer] ASSEMBLER Laurie Casper MD POINT OF CARE TESTIN G Performing Organization Address [facility] Co tx Phone Number [facility] [employer] [facility] CLIA# [id number] [address] [place] [address] * (ABNORMAL) POC GLUCOSE (04/13/2019 8:12 PM [employer]ARD ASSEMBLER) GLUCOSE POC 184(H) 74 - 99 mg/dL 04/13/2019 8:12 PM [employer]ARD ASSEMBLER [facility] LABORATORY SERVICES [facility] COMMENT, GLU POC Notified RN/MD 04/13/2019 8:12 PM [employer]ARD ASSEMBLER [facility] LABORATORY SERVICES [facility] PRICING CONSULTANT NAME POC DEIDRE HSIEH 04/13/2019 8:12 PM [employer] BOARD ASSEMBLER [facility] LABORATORY SERVICES [facility] Blood, whole 04/13/2019 8:12 PM [employer] ASSEMBLER 04/13/2019 8:29 PM [employer]SEMBLER Laurie Casper MD POINT OF CARE TESTIN G [facility] [employer] [facility] CLIA# [id number] [address] [place] [address] * (ABNORMAL) POC GLUCOSE (04/13/2019 4:02 PM [employer] BOARD ASSEMBLER) GLUCOSE POC 126(H) 74 - 99 mg/dL 04/13/2019 4:02 PM [employer] ASSEMBLER [employer] LABORATORY SERVICES [facility] PRICING CONSULTANT NAME TRINI MARTINEZ 04/13/2019 4:02 PM [employer] ASSEMBLER [employer] LABORATORY SERVICES [facility] Blood, whole 04/13/2019 4:02 PM [employer] ASSEMBLER 04/13/2019 4:47 PM [employer]BLER Laurie Casper MD POINT OF CARE FLY Serrano Performing Organization Address [facility]/ZIP Co de Phone Number [facility] [employer] [facility] CLIA# [id number] [address] [place] [address] * (ABNORMAL) POC GLUCOSE (04/13/2019 12:12 PM [employer]ARD ASSEMBLER) GLUCOSE POC 104(H) 74 - 99 mg/dL 04/13/2019 12:12 PM [employer] ASSEMBLER [employer] LABORATORY SERVICES [facility] PRICING CONSULTANT NAME TRINI MARTINEZ 04/13/2019 12:12 PM [employer] ASSEMBLER [employer] LABORATORY SERVICES [facility] Blood, whole 04/13/2019 12:1 2 PM [employer]SEMBLER 04/13/2019 12:22 PM [employer] Laurie Casper MD POINT OF CARE TESTJERONIMO Serrano [facility] [employer] [facility] CLIA# [id number] [address] [place] [address] * POC GLUCOSE (04/13/2019 11:06 AM [employer]ARD ASSEMBLER) GLUCOSE POC 99 74 - 99 mg/dL 04/13/2019 11:06 AM [employer]SEMBL[employer] LABORATORY SERVICES [facility] PRICING CONSULTANT NAME TRINI MARTINEZ 04/13/2019 11:06 AM [employer] LABORATORY [facility] Blood, whole 04/13/2019 11:0 6 AM [employer]SEMBLER 04/13/2019 11:45 AM [employer] Laurie Casper MD POINT OF CARE TESTJERONIMO Serrano [facility] CLIA# [id number] [address] [place] [address] * (ABNORMAL) POC GLUCOSE (04/13/2019 10:07 AM [employer]ARD ASSEMBLER) GLUCOSE POC 117(H) 74 - 99 mg/dL 04/13/2019 10:07 AM [employer]SEMBLER [facility] LABORATORY [facility] PRICING CONSULTANT NAME POC KRUNAL COURTNEY 04/13/2019 10:07 AM [employer]BLER [facility] LABORATORY [facility] Blood, whole 04/13/2019 10:0 7 AM [employer]BLER 04/13/2019 10:14 AM [employer] Laurie Casper MD POINT OF CARE FLY Serrano Performing Organization Address [facility]/ZIP Co de Phone Number [facility] [employer] [facility] CLIA# [id number] [address] [place] [address] * (ABNORMAL) POC GLUCOSE (04/13/2019 9:07 AM [employer] BOARD ASSEMBLER) GLUCOSE POC 127(H) 74 - 99 mg/dL 04/13/2019 9:07 AM [employer]BLER [facility] LABORATORY [facility] PRICING CONSULTANT NAME POC SHANTELL WHITTAKER 04/13/2019 9:07 AM [employer]SEMBLER [facility] LABORATORY [facility] Blood, whole 04/13/2019 9:07 AM [employer]BLER 04/13/2019 9:17 AM [employer]BL[employer] Laurie Casper MD POINT OF CARE TESTJERONIMO Serrano [facility] LABORATORY [facility] CLIA# [id number] [address] [place] [address] * (ABNORMAL) POC GLUCOSE (04/13/2019 8:14 AM [employer]ARD ASSEMBLER) GLUCOSE POC 125(H) 74 - 99 mg/dL 04/13/2019 8:14 AM [facility] LABORATORY [facility] PRICING CONSULTANT NAME TRINI MARTINEZ 04/13/2019 8:14 AM [facility] LABORATORY [facility] Blood, whole 04/13/2019 8:14 AM [employer]ARD ASSEMBLER 04/13/2019 9:11 AM [employer]BLER Laurie Casper MD POINT OF CARE TESTIN G Performing Organization Address [facility]/ZIP Co de Phone Number [facility] CLIA# [id number] [address] [place] [address] * (ABNORMAL) POC GLUCOSE (04/13/2019 7:02 AM [employer] BOARD ASSEMBLER) GLUCOSE POC 142(H) 74 - 99 mg/dL 04/13/2019 7:02 AM [employer]ARD ASSEMBLER [facility] LABORATORY [facility] PRICING CONSULTANT NAME TRINI MARTINEZ 04/13/2019 7:02 AM [facility] [employer] [facility] Blood, whole 04/13/2019 7:02 AM [employer]ARD ASSEMBLER 04/13/2019 9:11 AM [employer]BLER Laurie Casper MD POINT OF CARE TESTIN G Performing Organization Address City/[facility]/ZIP Co de Phone Number [id number] [address] [place] [address] * (ABNORMAL) POC GLUCOSE (04/13/2019 6:07 AM [employer] BOARD ASSEMBLER) GLUCOSE POC 160(H) 74 - 99 mg/dL 04/13/2019 6:07 AM [employer]ARD [employer]SEMBLER [facility] LABORATORY [facility] PRICING CONSULTANT NAME RICHY VANESSA 04/13/2019 6:07 AM [employer]SEMBLER [facility] LABORATORY [facility] Blood, whole 04/13/2019 6:07 AM [employer]BLER 04/13/2019 6:15 AM [employer]BLER Laurie Casper MD POINT OF CARE TESTJERONIMO Maggie [facility] LABORATORY [facility]# [id number] [address] [place] [address] * (ABNORMAL) POC GLUCOSE (04/13/2019 4:59 AM [employer] BOARD ASSEMBLER) GLUCOSE POC 174(H) 74 - 99 mg/dL 04/13/2019 4:59 AM [employer]ARD ASSEMBLER [facility] LABORATORY SERVICES [facility] PRICING CONSULTANT NAME POC VICTORIANO BIRCH 04/13/2019 4:59 AM [employer] ASSEMBLER [employer] LABORATORY SERVICES [facility] Blood, whole 04/13/2019 4:59 AM [employer]ARD ASSEMBLER 04/13/2019 5:08 AM [employer]BLER Laurie Casper MD POINT OF CARE TESTJERONIMO Maggie Performing Organization Address City/[facility]/ZIP Co de Phone Number [facility] LABORATORY [facility]# [id number] [address] [place] [address] * (ABNORMAL) POC GLUCOSE (04/13/2019 4:06 AM [employer] BOARD ASSEMBLER) GLUCOSE POC 178(H) 74 - 99 mg/dL 04/13/2019 4:06 AM [employer]SEMBLER [facility] LABORATORY SERVICES [facility] COMMENT, GLU POC Notified RN/MD 04/13/2019 4:06 AM [employer] LABORATORY SERVICES [facility] PRICING CONSULTANT NAME POC JILLIAN CORONA 04/13/2019 4:06 AM [employer]SEMBL[employer] [facility] Blood, whole 04/13/2019 4:06 AM [employer]BLER 04/13/2019 4:14 AM [employer] Laurie Casper MD POINT OF CARE TESTJERONIMO Maggie [facility] LABORATORY [facility]# [id number] [address] [place] [address] * MAGNESIUM LEVEL (04/13/2019 3:40 AM [employer]ARD ASSEMBLER) MAGNESIUM 1.6 1.6 - 2.6 mg/dL 04/13/2019 4:21 AM [facility] Blood Venipuncture / Unknown 04/13/2019 3:40 AM [employer] ASSEMBLER 04/13/2019 3:47 AM [employer] Laurie Casper MD CHEMISTRY ORDERABLES [facility] [employer] [facility] CLIA# [id number] [facility] [place] [place] [address] * (ABNORMAL) CBC WITHOUT DIFFERENTIAL (04/13/2019 3:40 AM [employer]) WBC 9.6 4.0 - 9.8 K/uL 04/13/2019 4:05 AM [facility] [employer] [facility] RBC 3.73(L) 3.90 - 4.90 M/uL 04/13/2019 4:05 AM [facility] [employer] [facility]. [facility] HEMOGLOBIN 10.7(L) 11.8 - 14.8 g/dL 04/13/2019 4:05 AM [facility] [employer] [facility]. [facility] HEMATOCRIT 34.0(L) 35.5 - 44.0 % 04/13/2019 4:05 AM [facility] [employer] [facility]. [facility] MCV 91.2 82.0 - 99.0 fL 04/13/2019 4:05 AM [facility] [employer] [facility]. [facility] MCH 28.7 27.2 - 32.6 pg 04/13/2019 4:05 AM [facility] [employer] [facility]. [facility] MCHC 31.5 31.5 - 35.5 g/dL 04/13/2019 4:05 AM [facility] [employer] [facility]. [facility] PLATELETS 188 140 - 350 K/uL 04/13/2019 4:05 AM [facility] [employer] [facility]. [facility] MPV 9.6 9.3 - 12.4 fL 04/13/2019 4:05 AM [facility] [employer] [facility]. [facility] RDW 16.1(H) 11.5 - 14.5 % 04/13/2019 4:05 AM [facility] [employer] [facility]. [facility] RDW-STDEV 54.1(H) 37.1 - 48.7 fL 04/13/2019 4:05 AM [facility] [employer] [facility] Blood Venipuncture / Unknown 04/13/2019 3:40 AM [employer] 04/13/2019 3:47 AM [employer] ASSEMBLER Maco Duque MD HEMATOLOGY ORDERABL ES [facility] [employer] [facility]# [id number] [address] [place] [address] * (ABNORMAL) BASIC METABOLIC PANEL (04/13/2019 3:40 AM [employer] ASSEMBLER) SODIUM 134(L) 136 - 145 mmol/L 04/13/2019 4:21 AM [facility] [employer] [facility] POTASSIUM 3.9 3.5 - 5.0 mmol/L 04/13/2019 4:21 AM [facility] [employer] [facility] CHLORIDE 101 98 - 107 mmol/L 04/13/2019 4:21 AM [facility] [employer] [facility]. [facility] CO2 22 22 - 29 mmol/L 04/13/2019 4:21 AM [facility] CALCIUM 7.8(L) 8.6 - 10.2 mg/dL 04/13/2019 4:21 AM [facility] BUN 2(L) 6 - 20 mg/dL 04/13/2019 4:21 AM [facility]. [facility] CREATININE 0.44(L) 0.51 - 0.95 mg/dL 04/13/2019 4:21 AM [facility] [employer] [facility]. [facility] GLUCOSE 174(H) 74 - 99 mg/dL 04/13/2019 4:21 AM [facility] [employer] [facility]. [facility] GFR >60 >=60 mL/min/1.7 3 sq meter 04/13/2019 4:21 AM [facility] Comment: eGFR has not been [...] mL/min/1.7 3 sq meter 04/13/2019 4:21 AM [employer]ARD ASSEMBLER [facility] LABORATORY [facility] ANION GAP 11 8 - 16 mmol/L 04/13/2019 4:21 AM [facility] LABORATORY [facility] Blood Venipuncture / Unknown 04/13/2019 3:40 AM [employer]ARD ASSEMBLER 04/13/2019 3:47 AM [employer]ARD ASSEMBLER Maco Duque MD CHEMISTRY ORDERABLE S Performing Organization Address [facility]/ZIP Co de Phone Number [facility] [employer] [facility] CLIA# [id number] [address] [place] [address] * (ABNORMAL) POC GLUCOSE (04/13/2019 2:56 AM [employer]ARD ASSEMBLER) GLUCOSE POC 172(H) 74 - 99 mg/dL 04/13/2019 2:56 AM [employer]ARD ASSEMBLER [facility] LABORATORY [facility] PRICING CONSULTANT NAME POC VICTORIANO BIRCH 04/13/2019 2:56 AM [facility] [employer] [facility] Blood, whole 04/13/2019 2:56 AM [employer]ARD ASSEMBLER 04/13/2019 3:05 AM [employer] BOARD ASSEMBLER Laurie Casper MD POINT OF CARE TESTIN G Performing Organization Address [facility]/ZIP Co de Phone Number [facility] [employer] [facility] CLIA# [id number] [address] [place] [place] [address] * (ABNORMAL) POC GLUCOSE (04/13/2019 2:03 AM [employer] BOARD ASSEMBLER) GLUCOSE POC 162(H) 74 - 99 mg/dL 04/13/2019 2:03 AM [employer] BOARD ASSEMBLER [facility] LABORATORY [facility] PRICING CONSULTANT NAME POC RICHY HADDAD 04/13/2019 2:03 AM [employer]ARD ASSEMBLER [facility] Blood, whole 04/13/2019 2:03 AM [employer] BOARD ASSEMBLER 04/13/2019 2:10 AM [employer]ARD ASSEMBLER Laurie Casper MD POINT OF CARE TESTJERONIMO Serrano Performing Organization Address [facility]/ZIP Co de Phone Number [facility] LABORATORY [facility] CLIA# [id number] [address] [place] [address] * (ABNORMAL) POC GLUCOSE (04/13/2019 1:01 AM [employer]ARD ASSEMBLER) GLUCOSE POC 166(H) 74 - 99 mg/dL 04/13/2019 1:01 AM [employer] BOARD ASSEMBLER [facility] LABORATORY SERVICES [facility] PRICING CONSULTANT NAME POC RICHY HADDAD 04/13/2019 1:01 AM [employer]ARD ASSEMBLER [facility] LABORATORY SERVICES [facility] Blood, whole 04/13/2019 1:01 AM [employer]ARD ASSEMBLER 04/13/2019 1:08 AM [employer]ARD ASSEMBLER Laurie Casper MD POINT OF CARE TESTJERONIMO Serrano Performing Organization Address [facility]/ZIP Co de Phone Number [facility] [employer] [facility] CLIA# [id number] [address] TIENMICHA[address] [place] [address] * (ABNORMAL) POC GLUCOSE (04/12/2019 11:55 PM [employer] BOARD ASSEMBLER) GLUCOSE POC 171(H) 74 - 99 mg/dL 04/12/2019 11:55 PM [employer]AVE BOARD ASSEMBLER [facility] LABORATORY SERVICES [facility] PRICING CONSULTANT NAME POC VICTORIANO BIRCH 04/12/2019 11:55 PM [employer]AVE BOARD ASSEMBLER [facility] LABORATORY SERVICES [facility] Blood, whole 04/12/2019 11:5 5 PM [employer]ARD ASSEMBLER 04/13/2019 12:04 AM [employer]ARD ASSEMBLER Laurie Casper MD POINT OF CARE TESTJERONIMO Serrano [facility] LABORATORY [facility] CLIA# [id number] [address] [place] [address] * (ABNORMAL) POC GLUCOSE (04/12/2019 11:01 PM [employer]AVE BOARD ASSEMBLER) GLUCOSE POC 162(H) 74 - 99 mg/dL 04/12/2019 11:01 PM [employer] BOARD ASSEMBLER [facility] LABORATORY [facility] PRICING CONSULTANT NAME POC RICHY HADDAD 04/12/2019 11:01 PM [employer]AVE BOARD ASSEMBLER [facility] LABORATORY [facility] Blood, whole 04/12/2019 11:0 1 PM [employer] BOARD ASSEMBLER 04/12/2019 11:08 PM [employer]ARD ASSEMBLER Laurie Casper MD POINT OF CARE TESTIN G [facility] CLIA# [id number] [address] TIENMICHAEL ACUNA [place] [address] * (ABNORMAL) POC GLUCOSE (04/12/2019 10:05 PM [employer]AVE BOARD ASSEMBLER) GLUCOSE POC 167(H) 74 - 99 mg/dL 04/12/2019 10:05 PM [employer] BOARD ASSEMBLER [facility] LABORATORY [facility] PRICING CONSULTANT NAME POC TAMIKO LASSITER 04/12/2019 10:05 PM [employer]ARD ASSEMBLER [facility] [employer] [facility] Blood, whole 04/12/2019 10:0 5 PM [employer] BOARD ASSEMBLER 04/12/2019 10:14 PM [employer]ARD ASSEMBLER Laurie Casper MD POINT OF CARE TESTIN G Performing Organization Address City/[facility]/ZIP Co de Phone Number [facility] CLAR# [id number] [address] [place] [address] * (ABNORMAL) POC GLUCOSE (04/12/2019 8:53 PM OCTAVE BOARD ASSEMBLER) GLUCOSE POC 116(H) 74 - 99 mg/dL 04/12/2019 8:53 PM [employer]AVE BOARD ASSEMBLER [facility] LABORATORY [facility] PRICING CONSULTANT NAME POC VICTORIANO BIRCH 04/12/2019 8:53 PM [employer]AVE BOARD ASSEMBLER [facility] LABORATORY [facility] Blood, whole 04/12/2019 8:53 PM [employer] BOARD ASSEMBLER 04/12/2019 9:00 PM [employer]AVE BOARD ASSEMBLER Laurie Casper MD POINT OF CARE TESTIN G [facility] [employer] [facility] CLIA# [id number] [address] [place] [address] * POC GLUCOSE (04/12/2019 7:59 PM OCTAVE BOARD ASSEMBLER) GLUCOSE POC 94 74 - 99 mg/dL 04/12/2019 7:59 PM [employer]AVE BOARD ASSEMBLER [facility] LABORATORY [facility] PRICING CONSULTANT NAME POC RICHY HADDAD 04/12/2019 7:59 PM [employer]AVE BOARD ASSEMBLER [facility] LABORATORY [facility] Blood, whole 04/12/2019 7:59 PM [employer]ARD ASSEMBLER 04/12/2019 8:07 PM [employer] BOARD ASSEMBLER Laurie Casper MD POINT OF CARE TESTIN G Performing Organization Address City/[facility]/ZIP Co de Phone Number [facility] [employer] [facility] CLIA# [id number] [address] [place] [address] * (ABNORMAL) POC GLUCOSE (04/12/2019 7:05 PM OCTAVE BOARD ASSEMBLER) GLUCOSE POC 108(H) 74 - 99 mg/dL 04/12/2019 7:05 PM [employer]AVE BOARD ASSEMBLER [facility] LABORATORY [facility] PRICING CONSULTANT NAME POC VICTORIANO BIRCH 04/12/2019 7:05 PM OCTAVE BOARD ASSEMBLER [facility] [employer] [facility] Blood, whole 04/12/2019 7:05 PM [employer]ARD ASSEMBLER 04/12/2019 7:14 PM [employer]ARD ASSEMBLER Laurie Casper MD POINT OF CARE TESTIN G [facility] [employer] [facility] CLIA# [id number] [address] [place] [address] * (ABNORMAL) POC GLUCOSE (04/12/2019 6:14 PM OCTAVE BOARD ASSEMBLER) GLUCOSE POC 120(H) 74 - 99 mg/dL 04/12/2019 6:14 PM [employer] BOARD ASSEMBLER [facility] COMMENT, GLU POC Notified RN/MD 04/12/2019 6:14 PM [employer]AVE BOARD ASSEMBLER [employer] LABORATORY SERVICES - [facility] PRICING CONSULTANT NAME ABHAY CORTES 04/12/2019 6:14 PM [employer]ARD ASSEMBLER [employer] LABORATORY SERVICES [facility] Blood, whole 04/12/2019 6:14 PM [employer] BOARD ASSEMBLER 04/12/2019 6:23 PM [employer]ARD ASSEMBLER Laurie Casper MD POINT OF CARE TESTIN G Performing Organization Address [facility]/ZIP Co de Phone Number [facility] [employer] [facility] CLIA# [id number] [address] [place] [address] * (ABNORMAL) POC GLUCOSE (04/12/2019 5:35 PM OCTAVE BOARD ASSEMBLER) GLUCOSE POC 107(H) 74 - 99 mg/dL 04/12/2019 5:35 PM [employer]AVE BOARD ASSEMBLER [employer] LABORATORY SERVICES [facility] COMMENT, GLU POC Notified BREANN 04/12/2019 5:35 PM [employer]AVE BOARD ASSEMBLER [employer] LABORATORY SERVICES [facility] PRICING CONSULTANT NAME [facility] ABHAY GARCIA 04/12/2019 5:35 PM [employer]AVE BOARD ASSEMBLER [employer] LABORATORY SERVICES [facility] Blood, whole 04/12/2019 5:35 PM [employer]AVE BOARD ASSEMBLER 04/12/2019 5:41 PM [employer]AVE BOARD ASSEMBLER Laurie Casper MD POINT OF CARE TESTJERONIMO G Performing Organization Address [facility] Co de Phone Number [facility]# [id number] [address] [place] [address] * (ABNORMAL) POC GLUCOSE (04/12/2019 4:14 PM [employer]AVE BOARD ASSEMBLER) GLUCOSE POC 117(H) 74 - 99 mg/dL 04/12/2019 4:14 PM [employer] BOARD ASSEMBLER [employer] LABORATORY SERVICES [facility] COMMENT, GLU POC Notified CLAU/ 04/12/2019 4:14 PM OCTAVE BOARD ASSEMBLER [employer] LABORATORY SERVICES [facility] PRICING CONSULTANT NAME ABHAY CORTES 04/12/2019 4:14 PM [employer]AVE BOARD ASSEMBLER [employer] LABORATORY SERVICES [facility] Blood, whole 04/12/2019 4:14 PM [employer] BOARD ASSEMBLER 04/12/2019 4:21 PM [employer] BOARD ASSEMBLER Laurie Casper MD POINT OF CARE TESTIN G Performing Organization Address [facility]/ZIP Co de Phone Number [facility] [employer] [facility] CLIA# [id number] [address] [place] [address] * (ABNORMAL) POC GLUCOSE (04/12/2019 2:57 PM [employer]AVE BOARD ASSEMBLER) GLUCOSE POC 116(H) 74 - 99 mg/dL 04/12/2019 2:57 PM [employer] BOARD ASSEMBLER [employer] LABORATORY SERVICES [facility] COMMENT, GLU POC Notified RN/MD 04/12/2019 2:57 PM [employer]AVE BOARD ASSEMBLER [employer] LABORATORY SERVICES [facility] PRICING CONSULTANT NAME POC ABHAY GARCIA 04/12/2019 2:57 PM [employer]AVE BOARD ASSEMBLER [employer] LABORATORY SERVICES [facility] Blood, whole 04/12/2019 2:57 PM [employer]AVE BOARD ASSEMBLER 04/12/2019 3:06 PM [employer]AVE BOARD ASSEMBLER Laurie Casper MD POINT OF CARE TESTJERONIMO G Performing Organization Address [facility] Co de Phone Number [facility] [employer] [facility] CLIA# [id number] [address] [place] [address] * (ABNORMAL) POC GLUCOSE (04/12/2019 2:08 PM [employer]AVE BOARD ASSEMBLER) GLUCOSE POC 124(H) 74 - 99 mg/dL 04/12/2019 2:08 PM [employer] BOARD ASSEMBLER [employer] LABORATORY SERVICES [facility] COMMENT, GLU POC Notified RN/MD 04/12/2019 2:08 PM [employer]AVE BOARD ASSEMBLER [employer] LABORATORY SERVICES [facility] PRICING CONSULTANT NAME POC ABHAY GARCIA 04/12/2019 2:08 PM [employer]AVE BOARD ASSEMBLER [employer] LABORATORY SERVICES [facility] Blood, whole 04/12/2019 2:08 PM [employer]AVE BOARD ASSEMBLER 04/12/2019 3:06 PM [employer]ARD ASSEMBLER Laurie Casper MD POINT OF CARE TESTIN G [employer] LABORATORY [facility] CLIA# [id number] [address] [place] [address] * (ABNORMAL) POC GLUCOSE (04/12/2019 12:21 PM [employer]AVE BOARD ASSEMBLER) GLUCOSE POC 182(H) 74 - 99 mg/dL 04/12/2019 12:21 PM [facility] [employer] LABORATORY [facility] - [facility] COMMENT, GLU POC Notified RN/MD 04/12/2019 12:21 PM [facility] [employer] LABORATORY SERVICES [facility] PRICING CONSULTANT NAME POC ABHAY GARCIA 04/12/2019 12:21 PM [facility] [employer] SERVICES [facility] Blood, whole 04/12/2019 12:2 1 PM [employer] BOARD ASSEMBLER 04/12/2019 12:29 PM [employer] BOARD ASSEMBLER Laurie Casper MD POINT OF CARE TESTIN G [facility] [employer] [facility]# [id number] [address] [place] [address] * (ABNORMAL) BASIC METABOLIC PANEL (04/12/2019 11:38 AM [employer]AVE BOARD ASSEMBLER) SODIUM 133(L) 136 - 145 mmol/L 04/12/2019 12:11 PM [facility] [employer] LABORATORY SERVICES - . [facility] POTASSIUM 3.8 3.5 - 5.0 mmol/L 04/12/2019 12:11 PM [facility] [employer] LABORATORY SERVICES - . [facility] CHLORIDE 99 98 - 107 mmol/L 04/12/2019 12:11 PM [facility] [employer] LABORATORY SERVICES - . [facility] CO2 24 22 - 29 mmol/L 04/12/2019 12:11 PM [facility] [employer] LABORATORY SERVICES - . [facility] CALCIUM 8.2(L) 8.6 - 10.2 mg/dL 04/12/2019 12:11 PM [facility] [employer] LABORATORY SERVICES - [facility] BUN 5(L) 6 - 20 mg/dL 04/12/2019 12:11 PM [facility] [employer] LABORATORY SERVICES - . [place] CREATININE 0.50(L) 0.51 - 0.95 mg/dL 04/12/2019 12:11 PM [facility] [employer] LABORATORY SERVICES - . [facility] GLUCOSE 244(H) 74 - 99 mg/dL 04/12/2019 12:11 PM [employer]AVE BOARD ASSEMBLER [facility] [employer] [facility] GFR >60 >=60 mL/min/1.7 3 sq meter 04/12/2019 12:11 PM [facility] [employer] [facility] Comment: eGFR has not been validated for [...] mL/min/1.7 3 sq meter 04/12/2019 12:11 PM [facility] ANION GAP 10 8 - 16 mmol/L 04/12/2019 12:11 PM [employer] BOARD ASSEMBLER [facility] [employer] [facility] Blood Venipuncture / Unknown 04/12/2019 11:38 AM [employer] BOARD ASSEMBLER 04/12/2019 11:43 AM [employer] BOARD ASSEMBLER Maco Duque MD CHEMISTRY ORDERABLE S [facility]# [id number] [address] [facility] TIEN[facility] [place] [address] * (ABNORMAL) TRIGLYCERIDE (04/12/2019 11:38 AM [employer]AVE BOARD ASSEMBLER) TRIGLYCERIDE 1,199(H) <150 mg/dL 04/12/2019 12:26 PM [employer]AVE BOARD ASSEMBLER [facility] [employer] [facility] Blood Venipuncture / Unknown 04/12/2019 11:38 AM [employer] BOARD ASSEMBLER 04/12/2019 11:43 AM [employer]AVE BOARD ASSEMBLER Narrative [facility] - 04/12/2019 12:26 PM [employer] BOARD ASSEMBLER TRIGLYCERIDES ? mg/dL Normal ?< 150 Borderline High ?150 - 199 High ? 200 - 499 Very High ? >= 500 Based on AHA/NCEP Guidelines. Maco Duque MD CHEMISTRY ORDERABLE S Performing Organization Address [facility] Co de Phone Number [facility] [employer] [facility]# [id number] [address] [place] [address] * (ABNORMAL) POC GLUCOSE (04/12/2019 10:39 AM [employer]AVE BOARD ASSEMBLER) GLUCOSE POC 235(H) 74 - 99 mg/dL 04/12/2019 10:39 AM [employer] BOARD ASSEMBLER [employer] LABORATORY SERVICES [facility] COMMENT, GLU POC Notified RN/MD 04/12/2019 10:39 AM [employer]ARD ASSEMBLER [employer] LABORATORY SERVICES [facility] PRICING CONSULTANT NAME ABHAY CORETS 04/12/2019 10:39 AM [employer]ARD ASSEMBLER [employer] LABORATORY SERVICES [facility] Blood, whole 04/12/2019 10:3 9 AM [employer] BOARD ASSEMBLER 04/12/2019 10:49 AM [employer] BOARD ASSEMBLER Laurie Casper MD POINT OF CARE TESTIN G Performing Organization Address [facility] Phone Number [employer] [facility]# [id number] [address] [place] [address] * (ABNORMAL) POC GLUCOSE (04/12/2019 8:08 AM OCTAVE BOARD ASSEMBLER) GLUCOSE POC 213(H) 74 - 99 mg/dL 04/12/2019 8:08 AM [employer] BOARD ASSEMBLER [employer] LABORATORY SERVICES [facility] COMMENT, GLU POC Notified RN/MD 04/12/2019 8:08 AM [employer] BOARD ASSEMBLER [employer] LABORATORY SERVICES [facility] PRICING CONSULTANT NAME ABHAY CORTES 04/12/2019 8:08 AM [employer]ARD ASSEMBLER [employer] LABORATORY SERVICES [facility] Blood, whole 04/12/2019 8:08 AM [employer] BOARD ASSEMBLER 04/12/2019 8:20 AM [employer]ARD ASSEMBLER Laurie Casper MD POINT OF CARE TESTIN G Performing Organization Address [facility]/State/ZIP Co de Phone Number [facility] [employer] [facility]# [id number] [address] [place] [address] * (ABNORMAL) POC GLUCOSE (04/12/2019 6:49 AM [employer]AVE BOARD ASSEMBLER) GLUCOSE POC 201(H) 74 - 99 mg/dL 04/12/2019 6:49 AM [employer] BOARD ASSEMBLER [facility] LABORATORY [facility] PRICING CONSULTANT NAME POC LEONCIO MONTES DE OCA 04/12/2019 6:49 AM [employer]ARD ASSEMBLER [facility] Blood, whole 04/12/2019 6:49 AM [employer] BOARD ASSEMBLER 04/12/2019 7:04 AM [employer] BOARD ASSEMBLER Laurie Casper MD POINT OF CARE TESTJERONIMO Serrano Performing Organization Address [facility]/ZIP Co de Phone Number [facility] [employer] [facility]# [id number] [address] [place] [address] * (ABNORMAL) POC GLUCOSE (04/12/2019 2:12 AM [employer]AVE BOARD ASSEMBLER) GLUCOSE POC 249(H) 74 - 99 mg/dL 04/12/2019 2:12 AM [employer] BOARD ASSEMBLER [facility] LABORATORY [facility] PRICING CONSULTANT NAME POC BROWN REED 04/12/2019 2:12 AM [employer] BOARD ASSEMBLER [facility] Blood, whole 04/12/2019 2:12 AM [employer] BOARD ASSEMBLER 04/12/2019 2:19 AM [employer] BOARD ASSEMBLER Herrera Maza MD POINT OF CARE TESTJERONIMO G [facility] [employer] [facility]# [id number] [address] [place] [address] * CT ABDOMEN PELVIS W CONTRAST (04/12/2019 2:06 AM [employer]AVE BOARD ASSEMBLER) Anatomical Region Laterality Modality Abdomen Computed Tomogra phy 04/12/2019 2:07 AM [employer]AVE BOARD ASSEMBLER Impressions 04/12/2019 2:18 AM [employer] BOARD ASSEMBLER IMPRESSION: Acute interstitial edematous pancreatitis. Complex 4.8 cm right adnexal cyst. 4-6 week pelvic ultrasound follow-up recommended.. DICTATION LOCATION: Location [address] [place] [address] 04/12/2019 2:18 AM [employer] CT ABDOMEN PELVIS W CONTRAST DATE: 04/12/2019 [...] * (ABNORMAL) POC CREATININE (04/12/2019 1:36 AM [employer] BOARD ASSEMBLER) CREATININE POC 0.40(L) 0.50 - 1.00 mg/dL 04/12/2019 1:36 AM [employer] BOARD ASSEMBLER [employer] [facility] GFR >60 >=60 mL/min/1. 73 sq meter 04/12/2019 1:36 AM [employer] BOARD ASSEMBLER [employer] [facility] Comment: eGFR has not been [...] mL/min/1. 73 sq meter 04/12/2019 1:36 AM [employer] BOARD ASSEMBLER [employer] [facility] PRICING CONSULTANT NAME POC CRISELDA ZUNIGA) 04/12/2019 1:36 AM [employer] BOARD ASSEMBLER [facility] [employer] [facility] Blood, capillary 04/12/2019 1:36 AM [employer] BOARD ASSEMBLER 04/12/2019 1:40 AM [employer]ARD ASSEMBLER Herrera Maza MD POINT OF CARE TESTIN G [facility] CLIA# [id number] [address] [facility] [place] [address] * (ABNORMAL) URINALYSIS WITH REFLEX MICROSCOPIC (04/12/2019 12:25 AM [employer]ARD ASSEMBLER) COLOR UA Pale Yellow Pale to Dark Yellow 04/12/2019 12:43 AM [facility] [employer] [facility] CLARITY UA Clear Clear 04/12/2019 12:43 AM [facility] [employer] [facility] - . [facility] SPECIFIC GRAVITY UA 1.027 1.003 - 1.035 04/12/2019 12:43 AM [facility] [employer] [facility] - . [facility] PH UA 6.0 5.0 - 8.0 04/12/2019 12:43 AM [facility] [employer] [facility]. [facility] LEUKOCYTE ESTERASE UA Negative Negative 04/12/2019 12:43 AM [facility] [employer] [facility]. [facility] NITRITE UA Negative Negative 04/12/2019 12:43 AM [facility] [employer] [facility]. [facility] PROTEIN UA Negative Negative 04/12/2019 12:43 AM [facility] [employer] [facility] GLUCOSE UA 3+(A) Negative 04/12/2019 12:43 AM [facility] [employer] [facility]. [facility] KETONES UA Trace(A) Negative 04/12/2019 12:43 AM [facility] [employer] [facility] UROBILINOGEN UA Normal <2.0 mg/dL 9 12:43 AM [facility] [employer] [facility]. [facility] BILIRUBIN UA Negative Negative 04/12/2019 12:43 AM [facility] [employer] [facility]. [facility] BLOOD UA Negative Negative 04/12/2019 12:43 AM [facility] [employer] [facility]. [facility] Urine URINE SPECIMEN OBTAINED BY CLEAN CATCH PROCEDURE / Unknown Collection / Unknown 04/12/2019 12:25 AM [employer] 04/12/2019 12:30 AM [facility] Herrera Maza MD URINE ORDERABLES [facility] [employer] [facility] CLIA# [id number] [address] [place] [address] * ETHANOL LEVEL (04/12/2019 12:16 AM [employer]) ETHANOL <10.00 <10.00 mg/dL 04/12/2019 12:53 AM [facility] [employer] [facility] ETHANOL % <0.01 %w/v 04/12/2019 12:53 AM [employer] [facility] [employer] [facility] Blood Venipuncture / Unknown 04/12/2019 12:16 AM [employer] 04/12/2019 12:24 AM [employer] Herrera Maza MD CHEMISTRY ORDERABLES Performing Organization Address City/[facility]/ZIP Co de Phone Number [facility] CLIA# [id number] [address] [place] [address] * AMYLASE (04/12/2019 12:16 AM [employer]) AMYLASE 56 28 - 100 U/L 04/12/2019 12:58 AM [employer] [facility] [employer] [facility] Blood Venipuncture / Unknown 04/12/2019 12:16 AM [employer] 04/12/2019 12:24 AM [employer] Herrera Maza MD CHEMISTRY ORDERABLES Performing Organization Address [facility]/ZIP Co de Phone Number [facility] [facility] [facility] CLIA# [id number] [address] [place] [address] * LIPASE (04/12/2019 12:16 AM OCTAVE BOARD ASSEMBLER) LIPASE 57 13 - 60 U/L 04/12/2019 12:58 AM OCTAVE BOARD ASSEMBLER [facility] [employer] [facility] Blood Venipuncture / Unknown 04/12/2019 12:16 AM [employer]ARD ASSEMBLER 04/12/2019 12:24 AM [employer]AVE BOARD ASSEMBLER Herrera Maza MD CHEMISTRY ORDERABLES Performing Organization Address City/[facility]/ZIP Co de Phone Number [facility] [employer] [facility] CLIA# [id number] [address] [place] [address] * (ABNORMAL) COMPREHENSIVE METABOLIC PANEL (04/12/2019 12:16 AM [employer]AVE [employer]ARD ASSEMBLER) SODIUM 126(L) 136 - 145 mmol/L 04/12/2019 2:22 AM [employer]ARD ASSEMBLER [facility] [employer] [facility] POTASSIUM 04/12/2019 2:22 AM [facility]ARD ASSEM[facility] Comment:Test cannot be perfo rmed due to gross hemolysis present. Redraw if indicated. CHLORIDE 89(L) 98 - 107 mmol/L 04/12/2019 2:22 AM [facility] CO2 17(L) 22 - 29 mmol/L 04/12/2019 2:22 AM [facility] [employer] [facility] CALCIUM 8.9 8.6 - 10.2 mg/dL 04/12/2019 2:22 AM [facility] [employer] [facility] BUN 7 6 - 20 mg/dL 04/12/2019 2:22 AM [facility] [employer] [facility] CREATININE 0.35(L) 0.51 - 0.95 mg/dL 04/12/2019 2:22 AM [facility] [employer] [facility] GLUCOSE 319(H) 74 - 99 mg/dL 04/12/2019 2:22 AM [facility] [employer] [facility] TOTAL PROTEIN 6.7 6.7 - 8.6 g/dL 04/12/2019 2:22 AM [facility] [employer] [facility] ALBUMIN 4.3 3.5 - 5.2 g/dL 04/12/2019 2:22 AM [facility] [employer] [facility] BILIRUBIN TOTAL 0.2(L) 0.3 - 1.2 mg/dL 04/12/2019 2:22 AM [facility] [employer] [facility] ALKALINE PHOSPHATASE 88 35 - 104 U/L 04/12/2019 2:22 AM [facility] [employer] [facility] Comment:Test cannot be perfo rmed due to gross hemolysis present. Redraw if indicated. AST 28 <33 U/L 04/12/2019 2:22 AM [facility] [employer] [facility] Comment: Hemolysis present. ?? Grossly lipemic Cleared of chylomicrons. ALT 14 <34 U/L 04/12/2019 2:22 AM [facility] [employer] [facility] Comment: Hemolysis present. ??Result may be falsely elevated. Grossly lipemic Cleared of chylomicrons. GFR >60 >=60 mL/min/1.7 3 sq meter 04/12/2019 2:22 AM [facility] Comment: eGFR has not been validated for [...] mL/min/1.7 3 sq meter 04/12/2019 2:22 AM [facility] [employer] [facility] ANION GAP 20(H) 8 - 16 mmol/L 04/12/2019 2:22 AM [facility] [employer] [facility] Blood Venipuncture / Unknown 04/12/2019 12:16 AM [employer]AVE [employer]ARD ASSEMBLER 04/12/2019 12:24 AM OCTAVE BOARD ASSEMBLER [facility] [employer] [facility] - 04/12/2019 2:22 AM [employer]AVE BOARD ASSEMBLER Samples containing indocyanine green cause interferences on Total and/or Direct Bilirubin and must not be measured. Herrera Maza MD CHEMISTRY ORDERABLES [facility] [employer] [facility]# [id number] [address] [facility] [place] [address] * (ABNORMAL) CBC WITH DIFFERENTIAL (04/12/2019 12:16 AM OCTAVE BOARD ASSEMBLER) WBC 13.8(H) 4.0 - 9.8 K/uL 04/12/2019 12:36 AM [facility] [employer] [facility] RBC 4.35 3.90 - 4.90 M/uL 04/12/2019 12:36 AM [facility] [employer] [facility] HEMOGLOBIN 13.5 11.8 - 14.8 g/dL 04/12/2019 12:36 AM [facility] [employer] [facility] HEMATOCRIT 37.0 35.5 - 44.0 % 04/12/2019 12:36 AM [facility] [employer] [facility] MCV 85.1 82.0 - 99.0 fL 04/12/2019 12:36 AM [facility] MCH 31.0 27.2 - 32.6 pg 04/12/2019 12:36 AM [facility] MCHC 36.5(H) 31.5 - 35.5 g/dL 04/12/2019 12:36 AM [employer]AVE BOARD ASSEMBLER [employer] [facility] RDW 15.3(H) 11.5 - 14.5 % 04/12/2019 12:36 AM [facility] RDW-STDEV 47.2 37.1 - 48.7 fL 04/12/2019 12:36 AM [facility] PLATELETS 261 140 - 350 K/uL 04/12/2019 12:36 AM [facility] MPV 9.6 9.3 - 12.4 fL 04/12/2019 12:36 AM [facility] NEUTROPHILS 74 % 04/12/2019 12:36 AM [facility] LYMPHOCYTES 21 % 04/12/2019 12:36 AM [facility] MONOCYTES 4 % 04/12/2019 12:36 AM [facility] EOSINOPHILS 0 % 04/12/2019 12:36 AM [facility] BASOPHILS 0 % 04/12/2019 12:36 AM [facility] IMMATURE GRANULOCYTES 1 % 04/12/2019 12:36 AM [facility] Comment:IG (Immature Granulo cyte) count includes Metamyelocytes, Myelocytes, and Promyelocytes NEUTROPHIL ABSOLUTE 10.21(H) 1.90 - 7.00 K/uL 04/12/2019 12:36 AM [facility] LYMPHOCYTE ABSOLUTE 2.87 0.70 - 4.50 K/uL 04/12/2019 12:36 AM [facility] [employer] [facility] MONOCYTE ABSOLUTE 0.61 0.10 - 1.30 K/uL 04/12/2019 12:36 AM [facility] EOSINOPHIL ABSOLUTE 0.05 0.00 - 0.70 K/uL 04/12/2019 12:36 AM [facility] BASOPHILS ABSOLUTE 0.03 0.00 - 0.20 K/uL 04/12/2019 12:36 AM OCTAVE BOARD ASSEMBLER [facility] IMMATURE GRANULOCYTES ABSOLUTE 0.07(H) 0.00 - 0.03 K/uL 04/12/2019 12:36 AM OCTAVE BOARD ASSEMBLER [facility] Blood Venipuncture / Unknown 04/12/2019 12:16 AM [employer]AVE BOARD ASSEMBLER 04/12/2019 12:24 AM [employer]AVE BOARD ASSEMBLER Herrera Maza MD HEMATOLOGY ORDERABLE S [facility] CLIA# [id number] [address] [place] [address] * EKG 12-LEAD (04/11/2019 11:55 PM OCTAVE BOARD ASSEMBLER) 04/11/2019 11:5 5 PM [employer]AVE BOARD ASSEMBLER Narrative INTERFACE SYSTEM - 04/12/2019 11:23 PM OCTAVE BOARD ASSEMBLER ? Stationary ECG Study ? [facility] ? Test Date: ?04/11/2019 11:55 PM Pat Name: ? CSAANDRA DOSS ?Department: ?? 40 ?Room: ? 4236 Gender: ? F ?Web Press Jogger: ?? [id number] : ?1975 ? Requested By: ?? Order Number: [id number] ?Reading MD: ?? Miguel Oviedoyr ? Measurements Intervals ?[place] ? Rate: ? 99 ? P: ?57 IN: ? 154 ?QRS: ?67 QRSD: ? 92 ? T: ?-6 QT: ? 348 ? QTc: ?447 ? Interpretive Statements ? Sinus rhythm Electronically Signed On 04-12-2019 23:23:04 OCTAVE BOARD ASSEMBLER by Miguel Lewis Procedure Note Miguel Lewis MD - 04/12/2019 Stationary ECG Study [facility] Test Date: 04/11/2019 11:55 PM Pat Name: CASANDRA DOSS Department: 40 Room: 4236 Gender: F Web Press Jogger: [email or web address] : 1975 Requested By: Order Number: [id number] Reading MD: Miguel Lewis Measurements Intervals [place] Rate: 99 P: 57 IN: 154 QRS: 67 QRSD: 92 T: -6 QT: 348 QTc: 447 Interpretive Statements Sinus rhythm Electronically Signed On 04-12-2019 23:23:04 OCTAVE BOARD ASSEMBLER by Miguel Lewis Herrera Maza MD ECG [...] Until Discontinued, Routine Given 04/15/2019 9:42 PM OCTAVE BOARD ASSEMBLER 80 mg Given 04/14/2019 8:35 PM [employer]AVE BOARD ASSEMBLER 80 mg Given 04/13/2019 8:59 PM [employer]AVE BOARD ASSEMBLER 80 mg calcium GLUCONATE 2,000 mg in sodium chloride 0.9% 120 mL IVPB 2,000 mg, IV, INTRA-PROCEDURE ONCE, 1 dose, Starting on 04/13/19 at 1230, Until Sat04/13/19 at 1330, Routine New Bag 04/13/2019 12:30 PM OCTAVE BOARD ASSEMBLER 2,000 mg 120 mL/hr citalopram (CeleXA) tablet 40 mg 40 mg, Oral, DAILY AT BEDTIME, First dose on 04/12/19 at 2100, Until Discontinued, Routine Given 04/15/2019 9:42 PM [employer]AVE BOARD ASSEMBLER 40 mg Given 04/14/2019 8:35 PM [employer] BOARD ASSEMBLER 40 mg Given 04/13/2019 8:59 PM [employer]AVE BOARD ASSEMBLER 40 mg diphenhydrAMINE (BENADRYL) tablet 25 mg 25 mg, Oral, EVERY 6 HOURS PRN, Starting on 04/12/19 at 0359, Until Katie 04/16/19 at 1842, Itching, Routine Given 04/15/2019 9:44 PM [employer]AVE BOARD ASSEMBLER 25 mg Given 04/14/2019 10:46 PM [employer]AVE BOARD ASSEMBLER 25 mg Given 04/14/2019 4:05 PM [employer]AVE BOARD ASSEMBLER 25 mg enoxaparin (LOVENOX) injection 40 mg 40 mg, subCUT, EVERY 24 HOURS, First dose on 04/12/19 at 0800, Until Discontinued, Routine, Indication: Prophylaxis of VTE, Dose to be adjusted per facility protocol? Yes Given 04/16/2019 8:06 AM [employer]AVE BOARD ASSEMBLER 40 mg Abdomen, Left Lower Quadrant Given 04/15/2019 8:22 AM [employer]AVE BOARD ASSEMBLER 40 mg Ar m, Right Upper Given 04/14/2019 9:04 AM [employer] BOARD ASSEMBLER 40 mg Ab domen, Right Lower Quadrant fenofibrate (LOFIBRA) tablet 160 mg 160 mg, Oral, DAILY, First dose on 04/12/19 at 0900, Until Discontinued, Routine Given 04/16/2019 8:0 6 AM [employer]AVE BOARD ASSEMBLER 160 mg Given 04/15/2019 8:21 AM [employer]AVE BOARD ASSEMBLER 160 mg Given 04/14/2019 9:04 AM [employer]AVE BOARD ASSEMBLER 160 mg heparin injection 2,000 Units 2,000 Units, IV, POST-PROCEDURE ONCE, 1 dose, Starting on Sat04/13/19 at 1140, Until Sat04/13/19 at 1351, Routine, Do not dispense Given 04/13/2019 1:51 PM OCTAVE BOARD ASSEMBLER 2,000 Units heparin injection 2,000 Units 2,000 Units, IV, ONE TIME ONLY, 1 dose, On Sat04/16/19 at 1000, Routine, DO NOT DISPENSE ALREADY HAVE DOSE, THANKS! Given 04/15/2019 2:18 PM OCTAVE BOARD ASSEMBLER 2,000 Un its HYDROmorphone (DILAUDID) 2 mg/mL injection 0.5 mg 0.5 mg, IV, EVERY 2 HOURS PRN, Starting on 04/12/19 at 0358, Until Sat04/15/19 at 0941, Pain (See admin instructions), Routine Given 04/15/2019 8:23 AM OCTAVE BOARD ASSEMBLER 0.5 mg Given 04/15/2019 3:21 AM [employer]AVE BOARD ASSEMBLER 0.5 mg Given 04/15/2019 1:11 AM [employer]AVE BOARD ASSEMBLER 0.5 mg HYDROmorphone (DILAUDID) 2 mg/mL injection 0.5 mg 0.5 mg, IV, EVERY 4 HOURS PRN, Starting on Sat04/15/19 at 1230, Until Sat04/16/19 at 1048, Pain (See admin instructions), Routine Given 04/16/2019 10:2 1 AM OCTAVE BOARD ASSEMBLER 0.5 mg Given 04/16/2019 5:59 AM [employer]AVE BOARD ASSEMBLER 0.5 mg Given 04/16/2019 1:44 AM OCTAVE BOARD ASSEMBLER 0.5 mg insulin glargine (LANTUS) injection 12 Units 12 Units, subCUT, DAILY, First dose (after last modification) on Sat04/13/19 at 1030, Until Discontinued, Routine, Discontinue insulin drip and dextrose fluids 2 hours after Lantus given. Call with questions. [phone] Given 04/13/2019 11:09 AM OCTAVE BOARD ASSEMBLER 12 Units Right Arm insulin glargine (LANTUS) injection 16 Units 16 Units, subCUT, DAILY, First dose (after last modification) on Sat04/14/19 at 0900, Until Discontinued, Routine, Discontinue insulin drip and dextrose fluids 2 hours after Lantus given. Call with questions. [phone] Given 04/16/2019 9:12 AM OCTAVE BOARD ASSEMBLER 16 Units Arm, Left Given 04/15/2019 8:21 AM OCTAVE BOARD ASSEMBLER 16 Units Ar m, Left Upper Given 04/14/2019 8:01 AM [employer]AVE BOARD ASSEMBLER 16 Units Ar m, Right Upper insulin lispro (HumaLOG) injection 2 Units 2 Units, subCUT, THREE TIMES DAILY WITH MEALS, First dose on Sat04/16/19 at 0700, Until Discontinued, Routine Given 04/16/2019 1:38 PM [employer]AVE BOARD ASSEMBLER 2 Units Arm, Left Given 04/16/2019 9:11 AM [employer]AVE BOARD ASSEMBLER 2 Units Ar m, Left insulin lispro (HumaLOG) variable dose injection subCUT, EVERY 4 HOURS, First dose on Sat04/13/19 at 1200, Until Discontinued, Routine Given 04/15/2019 8:04 PM OCTAVE BOARD ASSEMBLER 3 Units Arm, Right Given 04/14/2019 9:24 PM [employer]AVE BOARD ASSEMBLER 1 Units Ar m, Right Given 04/14/2019 5:14 PM [employer]AVE BOARD ASSEMBLER 1 Units Ar m, Left Upper insulin lispro (HumaLOG) variable dose injection subCUT, FOUR TIMES DAILY WITH MEALS AND AT BEDTIME, First dose (after last modification) on Katie 04/16/19 at 0700, Until Discontinued, Routine insulin regular (HUMULIN R,NOVOLIN R) 1 Units/mL in sodium chloride 0.9% infusion 0-25 Units/hr (0-25 mL/hr), IV, TITRATE, Starting on 04/12/19 at 0415, Until [facility] 04/16/19 at 0112 Rate Change 04/13/2019 11:07 AM OCTAVE BOARD ASSEMBLER 2 Units/hr 2 mL/hr Rate Verify 04/13/2019 10:09 AM OCTAVE BOARD ASSEMBLER 3 Units/hr 3 mL/hr Rate Verify 04/13/2019 9:09 AM OCTAVE BOARD ASSEMBLER 3 Units/hr 3 mL/hr iopamidol (ISOVUE-300) 61 % injection 100 mL 100 mL, IV, INTRA-PROCEDURE ONCE, 1 dose, Starting on [place] 04/12/19 at 0150, Until [place] 04/12/19 at 0207, Routine Contrast Given 04/12/2019 2:07 AM OCTAVE BOARD ASSEMBLER 100 mL levothyroxine (SYNTHROID) tablet 200 mcg 200 mcg, Oral, DAILY, First dose on [place] 04/12/19 at 0600, Until Discontinued, Routine Given 04/16/2019 6:03 AM OCTAVE BOARD ASSEMBLER 200 mcg Given 04/15/2019 8:27 AM [employer]AVE BOARD ASSEMBLER 200 mcg Given 04/14/2019 4:06 AM [employer]AVE BOARD ASSEMBLER 200 mcg LORazepam (ATIVAN) tablet 1 mg 1 mg, Oral, TWO TIMES DAILY PRN, Starting on [place] 04/12/19 at 0355, Until [facility] 04/16/19 at 1842, Anxiety, Routine Given 04/16/2019 12:03 PM [employer]AVE BOARD ASSEMBLER 1 mg Given 04/16/2019 12:33 AM [employer]AVE BOARD ASSEMBLER 1 mg Given 04/14/2019 8:35 PM [employer]AVE BOARD ASSEMBLER 1 mg magnesium hydroxide (MILK OF MAGNESIA) oral suspension 30 mL 30 mL, Oral, ONE TIME ONLY, 1 dose, On Katie 04/16/19 at 0900, Routine Given 04/16/2019 9:17 AM OCTAVE BOARD ASSEMBLER 30 mL MORPHINE 10 MG/ML INJECTION SOLUTION (CABINET OVERRIDE) 1 dose, Starting on 04/12/19 at 0218, Until 04/12/19 at 0220, Brianna IRIZARRY: cabinet override morphine injection 5 mg 5 mg, IV, ONE TIME ONLY, 1 dose, On 04/12/19 at 0030, Routine Given 04/12/2019 12:30 AM [employer]AVE BOARD ASSEMBLER 5 mg morphine injection 5 mg 5 mg, IV, ONE TIME ONLY, 1 dose, On 04/12/19 at 0100, Routine Given 04/12/2019 1:22 AM [employer]AVE BOARD ASSEMBLER 5 mg morphine injection 5 mg 5 mg, IV, ONE TIME ONLY, 1 dose, On 04/12/19 at 0230, Stat Given 04/12/2019 2:20 AM [employer] BOARD ASSEMBLER 5 mg ondansetron (ZOFRAN ODT) tablet 4 mg 4 mg, Sublingual, EVERY 6 HOURS PRN, Starting on 04/12/19 at 0359, Until Sat04/12/19 at 1156, Nausea, Routine Given 04/12/2019 8:02 AM [employer]AVE BOARD ASSEMBLER 4 mg Given 04/12/2019 4:22 AM [employer]AVE BOARD ASSEMBLER 4 mg ondansetron (ZOFRAN) 4 mg/2 mL injection 4 mg 4 mg, IV, ONE TIME ONLY, 1 dose, On 04/12/19 at 0030, Routine Given 04/12/2019 12:30 AM [employer]AVE BOARD ASSEMBLER 4 mg ondansetron (ZOFRAN) 4 mg/2 mL injection 4 mg 4 mg, IV, EVERY 6 HOURS PRN, Starting on Sat04/12/19 at 1154, Until [facility] 04/16/19 at 1842, Nausea/Emesis, Routine Given 04/14/2019 4:06 PM [employer]AVE BOARD ASSEMBLER 4 mg oxyCODONE-acetaminophen (PERCOCET) 5-325 mg per tablet 1 Tablet 1 Tablet, Oral, EVERY 4 HOURS PRN, Starting on Sat04/15/19 at 0940, Until Katie 04/16/19 at 1842, Pain (See admin instructions), Routine Given 04/16/2019 1:37 PM [employer]AVE BOARD ASSEMBLER 1 Tablet Given 04/16/2019 9:10 AM [employer]AVE BOARD ASSEMBLER 1 Tablet Given 04/16/2019 4:57 AM [employer]AVE BOARD ASSEMBLER 1 Tablet pantoprazole (PROTONIX) tablet 40 mg 40 mg, Oral, TWO TIMES DAILY, First dose on 04/12/19 at 0900, Until Discontinued, Routine Given 04/16/2019 8:06 AM [employer]AVE BOARD ASSEMBLER 40 mg Given 04/15/2019 9:42 PM [employer]AVE BOARD ASSEMBLER 40 mg Given 04/15/2019 8:21 AM [employer]AVE BOARD ASSEMBLER 40 mg polyethylene glycol (MIRALAX) packet 17 Gram 17 Gram, Oral, DAILY, First dose on Sat04/15/19 at 0945, Until Discontinued, Routine Given 04/16/2019 8:06 AM [employer]AVE BOARD ASSEMBLER 17 Grams Given 04/15/2019 11:30 AM [employer]AVE BOARD ASSEMBLER 17 Grams potassium Cl 20 mEq in dextrose 5% - NaCl 0.9% 1000 mL infusion IV, at 125 mL/hr, CONTINUOUS, Starting on Sat04/12/19 at 0415, Until [facility] 04/16/19 at 0346, Routine New Bag 04/14/2019 12:19 PM [employer]AVE BOARD ASSEMBLER 125 mL/hr Rate Verify 04/14/2019 6:00 AM [employer]AVE BOARD ASSEMBLER 125 mL/hr Rate Verify 04/14/2019 5:00 AM [employer] BOARD ASSEMBLER 125 mL/hr sennosides-docusate sodium (SENNA-S) 8.6-50 mg per tablet 1 Tablet 1 Tablet, Oral, DAILY, First dose on Sat04/16/19 at 0915, Until Discontinued, Routine Given 04/16/2019 9:17 AM [employer]AVE BOARD ASSEMBLER 1 Tablet sodium chloride 0.9% bolus solution 1,000 mL 1,000 mL, IV, ONE TIME ONLY, 1 dose, On Sat04/12/19 at 0000, at 999 mL/hr, Administer over 60 Minutes, Routine Bolus 04/12/2019 12:25 AM [employer]AVE BOARD ASSEMBLER 1,000 mL 999 mL/hr sodium chloride 0.9% bolus solution 1,000 mL 1,000 mL, IV, ONE TIME ONLY, 1 dose, On Sat04/12/19 at 0400, at 2,000 mL/hr, Administer over 30 Minutes, Routine New Bag 04/12/2019 4:46 AM [employer]AVE BOARD ASSEMBLER 1,000 mL 2000 mL/hr sodium chloride flush injection 10 mL 10 mL, IV, ONE TIME ONLY, 1 dose, On Sat04/12/19 at 0200, Routine Given 04/12/2019 2:07 AM [employer]AVE BOARD ASSEMBLER 10 mL traZODone (DESYREL) tablet 100 mg 100 mg, Oral, DAILY AT BEDTIME, First dose on Sat04/12/19 at 2100, Until Discontinued, Routine Given 04/15/2019 9:42 PM [employer] BOARD ASSEMBLER 100 mg Given 04/14/2019 8:35 PM [employer]AVE BOARD ASSEMBLER 100 mg Given 04/13/2019 8:59 PM [employer]AVE BOARD ASSEMBLER 100 mg documented in this encounter Active and Recently Administered Medications Times are shown in [employer]AVE BOARD ASSEMBLER. Scheduled Medication Order 04/14/2019 04/15/2019 04/16/2019 atorvastatin [...] hours after Lantus given. Call with questions. [phone] (Given - Provider: Genoveva Alberts RN) [...] Routine 0000 (Rate Verify - Provider: Ghada Galo RN)0028 (Bag Switched - Provider: Ghada Galo [...] Genoveva Alberts RN - Comment: Per Lian APPLICATION PACKAGER) PRN Medication Order 04/14/2019 04/15/2019 04/16/2019 bisacodyl (DULCOLAX) rectal suppository 10 mg 10 mg, Rectal, DAILY PRN, Starting on Sat04/12/19 at 0359, Until Sat04/16/19 at 1842, Constipation, Routine diphenhydrAMINE (BENADRYL) tablet 25 mg 25 mg, Oral, EVERY 6 HOURS PRN, Starting on Sat04/12/19 at 0359, Until Sat04/16/19 at 1842, Itching, Routine 1605 (Given - Provider: Sharri Olemdo RN)2246 (Given - Provider: Bart Daniels RN) [...] Routine documented in this encounter Care Teams Economic Geographer Relationship Specialty Start Date End Date Guerrero Middleton PA-C PCP - General Physician Coating Operator 02/13/18 documented as of this encounter
--- OUTSIDE RECORDS SUMMARY | 2024-05-03 21:55 | XMS_ITS | Encounter Summary ---
Author Organization [facility] Address [address] [place] [address] Care Team Providers Care Artificial Pearl Maker Name Role Phone Guerrero Middleton PA-C Primary Care Provide r Encounter Details Date Type Department Care Team (Latest Contact Info) Description 01/15/2019 9:56 AM CDT - 01/15/2019 11:59 PM T Hospital Encounter [facility] Don[facility] [address] [place] [address] Alize Arteaga MD NO ADDRESS ON FILE [...] and records. ?? Alize Arteaga MD, PhD Sanitation Officer, therapeutic apheresis service [phone] ?? Procedure #8 notes: patient tolerated procedure well.? documented in this encounter Plan of Treatment Upcoming Encounters Date Type Department Care Team (Late st Contact Info) Description 09/14/2024 3:00 PM CDT Office Visit [facility] Heart and Vascular - [place] [address] [place] [address] Marlys Mayer MD [address] [place] [address] documented as of this encounter Procedures Procedure Name Priority Date/Time Associated Diagnosis Comments TRIGLYCERIDE Routine 01/15/2019 10:05 AM CDT Hypertriglyceridemia documented in this encounter Results * (ABNORMAL) TRIGLYCERIDE (01/15/2019 10:05 AM CDT) TRIGLYCERIDE 3,335(H) <150 mg/dL 01/15/2019 11:44 AM CDT [facility] Blood Collection / Unknown 01/15/2019 10:05 AM CDT 01/15/2019 10:58 AM CDT Narrative [facility] - 01/15/2019 11:44 AM CDT TRIGLYCERIDES ? mg/dL Normal ?< 150 Borderline High ?150 - 199 High ? 200 - 499 Very High ? >= 500 Based on AHA/NCEP Guidelines. Alize Arteaga MD CHEMISTRY ORDER [facility] [id number] [address] [facility] [place] [address] documented in this encounter Visit Diagnoses Diagnosis [...] Units documented in this encounter Care Teams Artificial Pearl Maker Relationship Specialty Start Date End Date Guerrero Middleton PA-C PCP - General Physician Logistics Analytics Manager 02/13/18 documented as of this encounter
--- OUTSIDE RECORDS SUMMARY | 2024-05-03 21:55 | XMS_ITS | Encounter Summary ---
Author Organization [facility] Address [address] [place] [address] Care Team Providers Care Edge Inker Uppers Name Role Phone Guerrero Middleton PA-C Primary Care Provide r Reason for Visit * Auth/Cert Specialty Diagnoses / Procedures Referred By Conthardik t Referred To Contact General Surgery Diagnoses Follow up Procedures IR VENOUS NECK [facility] Int Unit [place] [address] [place] [address] Referral ID Status Reason Start Date Expiration Date Visits Re quested Visits Authorized [id number] 1 1 Encounter Details Date Type Department Care Team (Late st Contact Info) Description 02/18/2019 8:34 AM CDT Anesthesia Event [facility] Interventional Radiology [facility] [address] [place] [address] Tyra Lugo MD [address] [place] [address] Grady Goldberg CRNA [address] [place] [address] Anesthesia Record Procedure Summary Procedure [...] Nora Agarwal RN 08/13/201842 by Katia Lima sweater operator Access Port 02/18/19; 0957; Rig ht:; top [...] risks discussed with Patient and Patient Designated Computational Physicist. Use of blood products: consented to blood products. Plan discussed with Nurse Newsroom Intern. Post-op Pain Control Plan to use Block and Per surgeon for post-op pain control. Plan for postoperative opioid use Smoking Compliance Patient smoked on day of surgery documented in this encounter Plan of Treatment Upcoming Encounters Date Type Department Care Team (Late st Contact Info) Description 09/14/2024 3:00 PM CDT Office Visit [facility] Heart and Vascular - [facility] [address] [place] [address] Marlys Mayer MD [address] [facility] [address] [place], [place] [id number] documented as of this encounter Visit Diagnoses [...] /hr documented in this encounter Care Teams Edge Inker Uppers Relationship Specialty Start Date End Date Guerrero Middleton PA-C PCP - General Physician Water Tender 02/13/18 documented as of this encounter
--- OUTSIDE RECORDS SUMMARY | 2024-05-03 21:55 | XMS_ITS | Encounter Summary ---
Author Organization [facility] Address [address] [place] [address] Care Team Providers Care Trimmer Machine Name Role Phone Guerrero Middleton PA-C Primary Care Provide r Reason for Referral * Radiology Services (Routine) - Closed Specialty Diagnoses / Procedures Referred By Contac t Referred To Contact Diagnoses Follow up Procedures IR VENOUS ACCESS Laverne Willoughby MD Department of Radiology [address] [place] [address] Referral ID Status Reason Start Date Expiration Date Visits Re quested Visits Authorized [id number] Closed 02/11/2019 03/13/2020 1 1 Reason for Visit * Radiology Services (Routine) - Closed Specialty Diagnoses / Procedures Referred By Contac t Referred To Contact Diagnoses Follow up Procedures IR VENOUS ACCESS Laverne Willoughby MD Department of Radiology [address] [place] [address] Referral ID Status Reason Start Date Expiration Date Visits Re quested Visits Authorized [id number] Closed 02/11/2019 03/13/2020 1 1 Encounter Details Date Type Department Care Team (Latest Contact Info) Description 02/11/2019 10:48 AM CDT - 02/11/2019 11:59 PM CDT Hospital Encounter [facility] Interventional Radiology [address] [place] [address] Laverne Willoughby MD Department of Radiology [address] [place] [address] Discharge Disposition: Home or Self Care Social [...] How often do you attend chur or yazidi services? Never 08/21/2018 Do you [...] [facility] Heart and Vascular - [facility] [address] [address] [facility] [place] [address] Marlys Mayer MD [address] [place] [address] documented as of this encounter Procedures Procedure [...] and replacement. DICTATION LOCATION: Location 1 - [facility] Narrative 02/13/2019 11:47 AM CDT [place] [...] of removal and replacement. DICTATION LOCATION: Location [address] [place] [address] Laverne Willoughby MD IR ORDERABLES documented in [...] Site documented in this encounter Care Teams Trimmer Machine Relationship Specialty Start Date End Date Guerrero Middleton PA-C PCP - General Physician Nurse Informaticist 02/13/18 documented as of this encounter
--- OUTSIDE RECORDS SUMMARY | 2024-05-03 21:55 | XMS_ITS | Encounter Summary ---
Author Organization [facility] Address [address] [place] [address] Care Team Providers Care Office Administrative Assistant Name Role Phone Guerrero Middleton PA-C Primary Care Provide r Reason for Visit * Auth/Cert Specialty Diagnoses / Procedures Referred By Contac t Referred To Contact General Surgery Diagnoses Hypertriglyceridemia Procedures IR VENOUS NECK [facility] Int Unit [address] [address] Referral ID Status Reason Start Date Expiration Date Visits Re quested Visits Authorized [id number] 1 1 Encounter Details Date Type Department Care Team (Latest Contact Info) Description 05/11/2019 2:20 PM RENAL MEDICINE PHYSICIAN - 05/11/2019 11:59 PM [facility] Hospital Encounter [facility] Blood Bank Donor Center [address] [place] [address] Alize Arteaga MD NO ADDRESS ON FILE [...] How often do you attend chur or jewish services? Never 08/21/2018 Do you [...] Comments Blood Pressure 93/62 05/11/2019 3:30 PM RENAL MEDICINE PHYSICIAN Pulse 78 05/11/2019 3:30 PM RENAL MEDICINE PHYSICIAN Temperature 37 ??C (98.6 ??F) 05/11/2019 3:30 PM RENAL MEDICINE PHYSICIAN Respiratory Rate 16 05/11/2019 3:30 PM RENAL MEDICINE PHYSICIAN Oxygen Saturation - - Inhaled Oxygen Concentration [...] 1 Tablet (10 mg) by mouth daily open hearth melter. 30 Tablet 5 04/08/2019 10/12/2019 levothyroxine 200 [...] the procedure. ?? Alize Arteaga MD, PhD Scan Coordinator, therapeutic apheresis service [phone] ?? Procedure??notes:?L and R bard ports used for procedure. ??Patient tolerated procedure well. L MEDICINE PHYSICIAN * Rosales Tapia, RN - 05/11/2019 2:20 [...] at discharge. Pt left in stable condition. L MEDICINE PHYSICIAN documented in this encounter Plan of Treatment Upcoming Encounters Date Type Department Care Team (Late st Contact Info) Description 09/14/2024 3:00 PM CDT Office Visit [facility] Heart and Vascular - [facility] [address] [place] [address] Marlys Mayer MD [address] [place], [place] [id number] documented as of this encounter Procedures Procedure Name Priority Date/Time Associated Diagnosis Comments TRIGLYCERIDE Routine 05/11/2019 3:12 PM RENAL MEDICINE PHYSICIAN Hypertriglyceridemia documented in this encounter Results * (ABNORMAL) TRIGLYCERIDE (05/11/2019 3:12 PM RENAL MEDICINE PHYSICIAN) TRIGLYCERIDE 257(H) <150 mg/dL 05/11/2019 3:31 PM RENAL MEDICINE PHYSICIAN [facility] [employer] [facility] Blood Collection / Unknown 05/11/2019 3:12 PM RENAL MEDICINE PHYSICIAN 05/11/2019 3:14 PM RENAL MEDICINE PHYSICIAN Narrative [facility] [employer] [facility] - 05/11/2019 3:31 PM RENAL MEDICINE PHYSICIAN TRIGLYCERIDES ? mg/dL Normal ?< 150 Borderline High ?150 - 199 High ? 200 - 499 Very High ? >= 500 Based on AHA/NCEP Guidelines. Alize Arteaga MD CHEMISTRY ORDER OS[facility]DO [facility]# [id number] [address] [place] [address] documented in this encounter Visit Diagnoses Diagnosis [...] 1520, Routine New Bag 05/11/2019 2:29 PM RENAL MEDICINE PHYSICIAN 2,000 mg 240 mL/hr heparin injection 2,000 Units 2,000 Units, IV, ONE TIME ONLY, 1 dose, On Sat05/11/19 at 1500, Routine Given 05/11/2019 3:00 PM RENAL MEDICINE PHYSICIAN 2,000 Units heparin injection 3,000 Units 3,000 Units, IV, ONE TIME ONLY, 1 dose, On Sat05/11/19 at 1500, Routine Given 05/11/2019 3:20 PM RENAL MEDICINE PHYSICIAN 3,000 Units documented in this encounter Care Teams Office Administrative Assistant Relationship Specialty Start Date End Date Guerrero Middleton PA-C PCP - General Physician Shoe Repair Supervisor 02/13/18 documented as of this encounter
--- OUTSIDE RECORDS SUMMARY | 2024-05-03 21:55 | XMS_ITS | Encounter Summary ---
Author Organization [facility] Address [address] [place] [address] Care Team Providers Care Negative Retoucher Name Role Phone Guerrero Middleton PA-C Primary Care Provide r Reason for Referral * Radiology Services (Routine) - Closed Specialty Diagnoses / Procedures Referred By Tequila bowman Referred To Contact Interventional Radiology Diagnoses Hypertriglyceridemia Procedures IR VENOUS NECK IR TUBE PLACEMENT Alize Arteaga MD NO ADDRESS ON FILE Referral ID Status Reason Start Date Expiration Date V isits Requested Visits Authorized [id number] Closed [facility] CTS 05/07/2019 06/07/2019 1 1 EYOR WEIGHER OPERATOR Reason for Visit * Auth/Cert Specialty Diagnoses / Procedures Referred By Tequila bowman Referred To Contact General Surgery Diagnoses Hypertriglyceridemia Procedures IR VENOUS NECK [facility] [address] [address] Referral ID Status Reason Start Date Expiration Date Visits Re quested Visits Authorized [id number] 1 1 Encounter Details Date Type Department Care Team (Latest Contact Info) Description 05/11/2019 6:03 AM CONVEYOR WEIGHER OPERATOR - 05/11/2019 1:04 PM CONVEYOR WEIGHER OPERATOR Hospital Encounter [facility] STL Amb Care Interventional Unit [address] [facility] [place] [address] Alize Arteaga MD NO ADDRESS ON FILE [facility] Ir Mark Wyatt MD [address] [facility] [place] [address] Hypertriglyceridemia Discharge Disposition: Home or [...] Comments Blood Pressure 92/59 05/11/2019 12:45 PM CONVEYOR WEIGHER OPERATOR Pulse 74 05/11/2019 12:45 PM CONVEYOR WEIGHER OPERATOR Temperature 36.4 ??C (97.5 ??F) 05/11/2019 11:[address] Respiratory Rate 16 05/11/2019 11:55 AM CONVEYOR WEIGHER OPERATOR Oxygen Saturation 92% 05/11/2019 12:45 PM CONVEYOR WEIGHER OPERATOR Inhaled Oxygen Concentration - - Weight 88 kg (194 lb) 05/11/2019 6:53 AM CONVEYOR WEIGHER OPERATOR Height 165.1 cm (5' 5 ) 05/11/2019 6:53 AM CONVEYOR WEIGHER OPERATOR Body Mass Index 32.28 05/11/2019 6:53 AM CONVEYOR WEIGHER OPERATOR documented in this encounter Discharge Instructions * Discharge Instructions* Clifford Restrepo, RN - 05/11/2019 11:51 AM CONVEYOR WEIGHER OPERATOR SAFETY For the next 24 hours, you [...] or come to the Emergency Room at [facility] ([phone]) or the nearest Emergency Room. In an [...] away or gets worse. ??? Please call [phone] with any questions or concerns regarding the procedure you had. EYOR WEIGHER OPERATOR documented in this encounter Medications at Time [...] 1 Tablet (10 mg) by mouth daily landcare facilitator. 30 Tablet 5 04/08/2019 10/12/2019 levothyroxine 200 [...] careof Family, transported to blood donor services. EYOR WEIGHER OPERATOR * Clifford Restrepo RN - 05/11/2019 12:[address] Forrest in to see pt and OKd port site, request pt continue to use Ice packs. No change from 1200 assessment. EYOR WEIGHER OPERATOR * Clifford Restrepo RN - 05/11/2019 12:00 PM CST L chest port site appears more swollen and bruised than earlier, Dr Forrest updated and will evaluate, no change pain, site D/I, ice pack intact. EYOR WEIGHER OPERATOR * Nicole Michelle RN - 05/11/2019 11:46 AM CST Procedure completed. Dressing applied per Tima Patterson RT. New left power flow port remains accessed. Right power flow port accessed by Dr Forrest for pt's treatment today. Airway management per anesthesia. Pt transferred to bed. Portable monitor applied. Pt transported to [facility] with Dr Wyatt. Report given to Clifford OLGUIN. EYOR WEIGHER OPERATOR * Clifford Restrepo RN - 05/11/2019 11:46 AM CST Returned to room post procedure sleepy Awakens to name, VSS, c/o severe pain, @ L chest port, denies nausea, SOB. L chest port dressing dry, intact, no slight bruising and swelling noted, @ BS, started on full diet, instructed to ice pack and bedrest, states understanding. Dr Forrest updated to pain, med order received. EYOR WEIGHER OPERATOR * Nicole Michelle RN - 05/11/2019 10:30 AM CST In [facility] to see patient. Pt's history, meds, allergies, labs, NPO status & order reviewed. Dr Forrest explained procedure. Informed consent obtained. Dr Wyatt spoke with pt. Pt transported to xray room 14. Pt transferred to procedure table in supine position. Monitors applied. Airway management, meds & vitals per anesthesia. 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 L sided catheter has migrated back now terminating at innominate vein confluence. This will be to be removed and replaced with new port with slightly longer tubing to mitigate risk of recurrence. EYOR WEIGHER OPERATOR documented in this encounter Plan of Treatment Upcoming Encounters Date Type Department Care Team (Late st Contact Info) Description 09/14/2024 3:00 PM CDT Office Visit [facility] Heart and Vascular - [facility] [address] [place] [address] Marlys Mayer MD [address] [place] [address] documented as of this encounter Procedures Procedure Name Priority Date/Time Associated Diagnosis Comments IR VENOUS NECK Routine 05/11/2019 11:38 AM CONVEYOR WEIGHER OPERATOR Hypertriglyceridemia POC GLUCOSE Routine 05/11/2019 6:23 AM CONVEYOR WEIGHER OPERATOR documented in this encounter Results * IR VENOUS NECK (05/11/2019 11:38 AM CONVEYOR WEIGHER OPERATOR) Anatomical Region Laterality Modality Neck X-Ray Angiograph y, Other 05/11/2019 11:3 8 AM CONVEYOR WEIGHER OPERATOR Impressions 05/11/2019 12:38 PM CONVEYOR WEIGHER OPERATOR IMPRESSION: 1. ??Successful left chest Powerflow port removal. 2. ??Successful placement of a new left chest Powerflow port with tip in the right atrium and just slightly shorter than the right-sided venous port as intended for use. PLAN: The ports are ready to use. DICTATION LOCATION: Location 1 - [facility] Narrative 05/11/2019 12:38 PM CONVEYOR WEIGHER OPERATOR PROCEDURES: 1. ??FLUOROSCOPIC GUIDED LEFT CHEST VENOUS [...] to use. DICTATION LOCATION: Location 1 - [facility] Alize Arteaga MD IR ORDERABLES * (ABNORMAL) POC GLUCOSE (05/11/2019 6:23 AM CONVEYOR WEIGHER OPERATOR) [facility] Signature GLUCOSE POC 169(H) 74 - 99 mg/dL 05/11/2019 6:23 AM CONVEYOR WEIGHER OPERATOR [facility] TRAINING REPRESENTATIVE NAME POC CLIFFORD RESTREPO 05/11/2019 6:23 AM CONVEYOR WEIGHER OPERATOR [facility] Blood, whole 05/11/2019 6:23 AM CONVEYOR WEIGHER OPERATOR 05/11/2019 6:33 AM CONVEYOR WEIGHER OPERATOR Alize Arteaga MD POINT OF CARE T ESTING [facility]# [id number] [address] [facility] [place] [place] [id number] documented in this encounter Visit Diagnoses Diagnosis Hypertriglyceridemia Pure hyperglyceridemia documented in this encounter Administered Medications Inactive Administered Medications - up to 3 most recent administrations Medication Order MAR Action Action Date Dose Rate Site oxyCODONE-acetaminophen (PERCOCET) 5-325 mg per tablet 1 Tablet 1 Tablet, Oral, ONE TIME ONLY, 1 dose, On 05/11/19 at 1200, Routine Given 05/11/2019 11:53 AM CONVEYOR WEIGHER OPERATOR 1 Tablet documented in this encounter Active and Recently Administered Medications Times are shown in CONVEYOR WEIGHER OPERATOR. Scheduled Medication Order 05/09/2019 05/10/2019 05/11/2019 ceFAZolin [...] RN) documented in this encounter Care Teams Negative Retoucher Relationship Specialty Start Date End Date Guerrero Middleton PA-C PCP - General Physician Crown Ironer Operator 02/13/18 documented as of this encounter
--- OUTSIDE RECORDS SUMMARY | 2024-05-03 21:55 | XMS_ITS | Encounter Summary ---
Author Organization [facility] Address [address] [place] [address] Care Team Providers Care Oil Well Fishing Tool Technician Name Role Phone Guerrero Middleton PA-C Primary Care Provide r Encounter Details Date Type Department Care Team (Latest Contact Info) Description 01/28/2019 10:00 AM CDT - 01/28/2019 11:59 PM T Hospital Encounter [facility] Blood Bank Donor Center [address] [facility] [address] [place] [address] Alize Arteaga MD NO ADDRESS ON FILE [...] the procedure. ?? Alize Arteaga MD, PhD Real Estate Specialist, therapeutic apheresis service [phone] ?? Procedure??notes: Patient tolerated procedure well.?Patient continues [...] [facility] [address] [address] [address] [place] [address] Marlys Mayer MD [address] [place] [address] documented as of this encounter Procedures Procedure [...] 612(H) <150 mg/dL 01/28/2019 11:49 AM CDT [facility] [employer] [facility] Blood Collection / Unknown 01/28/2019 10:51 AM CDT 01/28/2019 10:51 AM CDT Narrative [facility] [employer] [facility] - 01/28/2019 11:49 AM CDT TRIGLYCERIDES ? mg/dL Normal ?< 150 Borderline High ?150 - 199 High ? 200 - 499 Very High ? >= 500 Based on AHA/NCEP Guidelines. Alize Arteaga MD CHEMISTRY ORDER OSVALDO [facility] [employer] [facility]# [id number] [address] [place] [address] documented in this encounter Visit Diagnoses Diagnosis [...] Units documented in this encounter Care Teams Oil Well Fishing Tool Technician Relationship Specialty Start Date End Date Guerrero Middleton PA-C PCP - General Physician Director Stage 02/13/18 documented as of this encounter
--- OUTSIDE RECORDS SUMMARY | 2024-05-03 21:55 | XMS_ITS | Encounter Summary ---
Author Organization [facility] Address [address] [place] [address] Care Team Providers Care Clinical Informatics Specialist Name Role Phone Guerrero Middleton PA-C Primary Care Provide r Encounter Details Date Type Department Care Team (Late st Contact Info) Description 04/30/2019 10:00 AM TOP DISTRIBUTION EXECUTIVE - 04/30/2019 11:59 PM [facility] Hospital Encounter [facility] [place] [address] Marquita Elizalde MD [facility], [facility] [address] [facility] [place] [address] Discharge Disposition: Home or Self [...] Comments Blood Pressure 138/84 04/30/2019 11:29 AM TOP DISTRIBUTION EXECUTIVE Pulse 87 04/30/2019 11:29 AM TOP DISTRIBUTION EXECUTIVE Temperature 36.7 ??C (98 ??F) 04/30/2019 11:29 AM TOP DISTRIBUTION EXECUTIVE Respiratory Rate 18 04/30/2019 11:29 AM TOP DISTRIBUTION EXECUTIVE Oxygen Saturation - - Inhaled Oxygen Concentration [...] 1 Tablet (10 mg) by mouth daily warehouse picker. 30 Tablet 5 04/08/2019 10/12/2019 levothyroxine 200 [...] as replacement fluid. Pt tolerated procedure well. DISTRIBUTION EXECUTIVE documented in this encounter Plan of Treatment Upcoming Encounters Date Type Department Care Team (Late st Contact Info) Description 09/14/2024 3:00 PM CDT Office Visit [facility] Heart and Vascular - [facility] [address] [place] [address] Marlys Mayer MD [address] [place], [place] [phone] documented as of this encounter Procedures Procedure Name Priority Date/Time Associated Diagnosis Comments TRIGLYCERIDE Stat 04/30/2019 10:08 AM TOP DISTRIBUTION EXECUTIVE Mixed hyperlipidemia documented in this encounter Results * (ABNORMAL) TRIGLYCERIDE (04/30/2019 10:08 AM TOP DISTRIBUTION EXECUTIVE) TRIGLYCERIDE 200(H) <150 mg/dL 04/30/2019 10:40 AM TOP DISTRIBUTION EXECUTIVE [facility] [employer] [facility] Blood Collection / Unknown 04/30/2019 10:08 AM TOP DISTRIBUTION EXECUTIVE 04/30/2019 10:08 AM TOP DISTRIBUTION EXECUTIVE Narrative [facility] [employer] [facility] - 04/30/2019 10:40 AM TOP DISTRIBUTION EXECUTIVE TRIGLYCERIDES ? mg/dL Normal ?< 150 Borderline High ?150 - 199 High ? 200 - 499 Very High ? >= 500 Based on AHA/NCEP Guidelines. Marquita Elizalde MD CHEMISTRY ORDERA MARGARETH [facility] [employer] [facility] CLIA# [id number] [address] [place] [address] documented in this encounter Visit Diagnoses Diagnosis [...] 1056, Routine New Bag 04/30/2019 10:26 AM TOP DISTRIBUTION EXECUTIVE 2,000 mg 240 mL/hr heparin injection 2,000 Units 2,000 Units, IV, ONE TIME ONLY, 1 dose, On Katie 04/30/19 at 1000, Routine, Please tube to 516, thanks! Given 04/30/2019 11:37 AM TOP DISTRIBUTION EXECUTIVE 2,000 Units documented in this encounter Care Teams Clinical Informatics Specialist Relationship Specialty Start Date End Date Guerrero Middleton PA-C PCP - General Physician Cook Manager 02/13/18 documented as of this encounter
--- OUTSIDE RECORDS SUMMARY | 2024-05-03 21:55 | XMS_ITS | Encounter Summary ---
Author Organization [facility] Address [address] [place] [address] Care Team Providers Care Dust Operator Name Role Phone Guerrero Middleton PA-C Primary Care Provide r Encounter Details Date Type Department Care Team (Latest Contact Info) Description 05/06/2019 9:37 AM BUSINESS OFFICE MANAGER - 05/06/2019 11:59 PM BUSINESS OFFICE MANAGER Hospital Encounter [facility] Blood Bank Donor Center [address] [facility] [address] [place] [address] Alize Arteaga MD NO ADDRESS ON FILE [...] 1 Tablet (10 mg) by mouth daily bar pilot. 30 Tablet 5 04/08/2019 10/12/2019 levothyroxine 200 [...] procedure scheduled for Saturday05/11/19 after port replacement. NESS OFFICE MANAGER documented in this encounter Plan of Treatment Upcoming Encounters Date Type Department Care Team (Late st Contact Info) Description 09/14/2024 3:00 PM CDT Office Visit [facility] [address] [place] [address] Marlys Mayer MD [address] [place] [address] documented as of this encounter Procedures Procedure Name Priority Date/Time Associated Diagnosis Comments TRIGLYCERIDE Stat 05/06/2019 9:45 AM BUSINESS OFFICE MANAGER Hypertriglyceridemia Mixed hyperlipidemia documented in this encounter Results * (ABNORMAL) TRIGLYCERIDE (05/06/2019 9:45 AM BUSINESS OFFICE MANAGER) TRIGLYCERIDE 380(H) <150 mg/dL 05/06/2019 10:22 AM BUSINESS OFFICE MANAGER [facility] [employer] [facility] Blood Collection / Unknown 05/06/2019 9:45 AM BUSINESS OFFICE MANAGER 05/06/2019 9:50 AM BUSINESS OFFICE MANAGER Narrative [facility] [employer] [facility] - 05/06/2019 10:22 AM BUSINESS OFFICE MANAGER TRIGLYCERIDES ? mg/dL Normal ?< 150 Borderline High ?150 - 199 High ? 200 - 499 Very High ? >= 500 Based on AHA/NCEP Guidelines. Alize Arteaga MD CHEMISTRY ORDER OSVALDO [facility] [employer] [facility]# [id number] [address] [place] [place] [address] documented in this encounter Visit Diagnoses Diagnosis Hypertriglyceridemia- Primary Pure hyperglyceridemia Mixed hyperlipidemia documented in this encounter Care Teams Dust Operator Relationship Specialty Start Date End Date Guerrero Middleton PA-C PCP - General Physician Shadowgraph Operator 02/13/18 documented as of this encounter
--- OUTSIDE RECORDS SUMMARY | 2024-05-03 21:55 | XMS_ITS | Encounter Summary ---
Author Organization [facility] Address [address] [place] [address] Care Team Providers Care Contract Administration Manager Name Role Phone Guerrero Middleton PA-C Primary Care Provide r Encounter Details Date Type Department Care Team (Latest Contact Info) Description 03/11/2019 9:18 AM GERIATRIC CASE MANAGER - 03/11/2019 11:59 PM [facility] Hospital Encounter [facility] Blood [facility] Donor [facility] [address] [place] [address] [place] [address] Alize Arteaga MD NO ADDRESS ON FILE [...] Comments Blood Pressure 114/78 03/11/2019 1:31 PM GERIATRIC CASE MANAGER Pulse 81 03/11/2019 1:31 PM GERIATRIC CASE MANAGER Temperature 36.9 ??C (98.4 ??F) 03/11/2019 1:31 PM CS T Respiratory Rate 16 03/11/2019 1:31 PM GERIATRIC CASE MANAGER Oxygen Saturation - - Inhaled Oxygen [...] bard port because of poor blood return. ATRIC CASE MANAGER * Alize Arteaga MD - 03/11/2019 10:00 [...] the procedure. ?? Alize Arteaga MD, PhD Senior Hardware Design Engineer, therapeutic apheresis service [phone] ?? Procedure??notes:??Cathflo needed to get adequate return in L BARD powerflow port.??Patient tolerated procedure well.?? ATRIC CASE MANAGER documented in this encounter Plan of Treatment Upcoming Encounters Date Type Department Care Team (Late st Contact Info) Description 09/14/2024 3:00 PM CDT Office Visit [facility] [address] [place] [address] Marlys Mayer MD [address] [place] [address] documented as of this encounter Procedures Procedure Name Priority Date/Time Associated Diagnosis Comments TRIGLYCERIDE Routine 03/11/2019 9:55 AM GERIATRIC CASE MANAGER Metabolic syndrome History of gestational diabetes Family [...] Results * (ABNORMAL) TRIGLYCERIDE (03/11/2019 9:55 AM GERIATRIC CASE MANAGER) TRIGLYCERIDE 728(H) <150 mg/dL 03/11/2019 11:07 AM GERIATRIC CASE MANAGER [facility] LABORATORY SERVICES [facility] Blood Venipuncture / Unknown 03/11/2019 9:55 AM GERIATRIC CASE MANAGER 03/11/2019 10:29 AM GERIATRIC CASE MANAGER Narrative [facility] LABORATORY SERVICES [facility] - 03/11/2019 11:07 AM GERIATRIC CASE MANAGER TRIGLYCERIDES ? mg/dL Normal ?< 150 Borderline High ?150 - 199 High ? 200 - 499 Very High ? >= 500 Based on AHA/NCEP Guidelines. Alize Arteaga MD CHEMISTRY ORDER OSVALDO [facility] LABORATORY SERVICES [facility]# [id number] [address] [place] [address] documented in this encounter Visit Diagnoses Diagnosis [...] 516, blood bank Given 03/11/2019 10:46 AM GERIATRIC CASE MANAGER 2 mg Chest, Left calcium GLUCONATE 2,000 mg in sodium chloride 0.9% 120 mL IVPB 2,000 mg, IV, INTRA-PROCEDURE ONCE, 1 dose, Starting on Sat03/11/19 at 1000, Until Sat03/11/19 at 1321, Routine New Bag 03/11/2019 12:30 PM GERIATRIC CASE MANAGER 2,000 mg 120 mL/hr heparin injection 2,000 Units 2,000 Units, IV, POST-PROCEDURE ONCE, 1 dose, Starting on Sat03/11/19 at 1000, Until Sat03/11/19 at 1352, Routine, PLEASE TUBE TO STATION 516, BLOOD BANK Given 03/11/2019 1:52 PM GERIATRIC CASE MANAGER 2,000 Units heparin injection 2,000 Units 2,000 Units, IV, POST-PROCEDURE ONCE, 1 dose, Starting on Sat03/11/19 at 1000, Until Sat03/11/19 at 1354, Routine, PLEASE TUBE TO STATION 516 BLOOD BANK Given 03/11/2019 1:54 PM GERIATRIC CASE MANAGER 2,000 Units water sterile injection See Admin Instructions, ONE TIME ONLY, 1 dose, On Sat03/11/19 at 0900, Routine Given 03/11/2019 9:00 AM GERIATRIC CASE MANAGER Chest, Left documented in this encounter Care Teams Contract Administration Manager Relationship Specialty Start Date End Date Guerrero Middleton PA-C PCP - General Physician In Classroom Tutor 02/13/18 documented as of this encounter
--- OUTSIDE RECORDS SUMMARY | 2024-05-03 21:56 | XMS_ITS | Encounter Summary ---
Author Organization [facility] Address [address] [place] [address] Care Team Providers Care Wildlife Rehabilitator Name Role Phone Guerrero Middleton PA-C Primary Care Provide r Encounter Details Date Type Department Care Team (Latest Contact Info) Description 11/24/2018 9:45 AM CDT - 11/24/2018 11:59 PM T Hospital Encounter [facility] Blood Bank Donor Center S [facility] [address] [place] [address] Alize Arteaga MD NO ADDRESS ON FILE [...] of 12/01/18, as she is going to [place] for an evaluation that week. We have [...] the procedure. ?? Alize Arteaga MD, PhD Respiratory Care Faculty, therapeutic apheresis service [phone] * Daniel Whitehead RN - 11/24/2018 12:15 [...] [facility] Heart [facility] Vascular - [facility] [address] [address] [place] [address] Marlys Mayer MD [address] [facility] [place] [address] documented as of this encounter Procedures Procedure [...] 870(H) <150 mg/dL 11/24/2018 11:09 AM CDT [facility] Blood Collection / Unknown 11/24/2018 10:29 AM CDT 11/24/2018 10:29 AM CDT Narrative [facility] - 11/24/2018 11:09 AM CDT TRIGLYCERIDES ? mg/dL Normal ?< 150 Borderline High ?150 - 199 High ? 200 - 499 Very High ? >= 500 Based on AHA/NCEP Guidelines. Alize Arteaga MD CHEMISTRY ORDER OSVALDO [facility]# [id number] [address] [facility] [place] [address] documented in this encounter Visit Diagnoses Diagnosis [...] Right documented in this encounter Care Teams Wildlife Rehabilitator Relationship Specialty Start Date End Date Guerrero Middleton PA-C PCP - General Physician Wire Stockkeeper 02/13/18 documented as of this encounter
--- OUTSIDE RECORDS SUMMARY | 2024-05-03 21:56 | XMS_ITS | Encounter Summary ---
Author Organization [facility] Address [address] [place] [address] Care Team Providers Care Mems Device Scientist Name Role Phone Guerrero Middleton PA-C Primary Care Provide r Encounter Details Date Type Department Care Team (Latest Contact Info) Description 11/13/2018 9:56 AM CDT - 11/13/2018 11:59 PM T Hospital Encounter [facility] Blood Bank Donor Center S [employer] [address] [place] [address] Marlys Mayer MD [address] [place] [address] Discharge Disposition: Home or Self Care Social [...] the procedure. ?? Alize Arteaga MD, PhD Nanotechnology Technician, therapeutic apheresis service [phone] * Daniel Whitehead, RN - 11/13/2018 12:29 [...] [facility])[3] Heart and Vascular - [facility] [address] [place] [phone] Marlys Mayer MD [address] [place], [place] [id number] documented as of this encounter Procedures Procedure [...] 3,668(H) <150 mg/dL 11/13/2018 11:12 AM CDT [facility] Blood Collection / Unknown 11/13/2018 10:29 AM CDT 11/13/2018 10:29 AM CDT [facility] - 11/13/2018 11:12 AM CDT TRIGLYCERIDES ? mg/dL Normal ?< 150 Borderline High ?150 - 199 High ? 200 - 499 Very High ? >= 500 Based on AHA/NCEP Guidelines. Alize Arteaga MD CHEMISTRY ORDER OSVALDO [facility]# [id number] [address] [facility] [place] [address] * PROTIME-INR (11/13/2018 10:29 AM CDT) PROTIME 13.0 12.7 - 15.1 Seconds 11/13/2018 10:45 AM CDT [facility] INR 1.0 0.9 - 1.1 11/13/2018 10:45 AM CDT [facility] Blood Collection / Unknown 11/13/2018 10:29 AM CDT 11/13/2018 10:29 AM CDT [facility] - 11/13/2018 10:45 AM CDT INR Therapeutic Range: Adult: ?? 2.0 - 3.0 for pulmonary embolism or prophylaxis against venous ?thrombosis or systemic embolization. 2.0 - 3.0 for patients with tissue heart valves. 2.5 - 3.5 for patients with mechanical heart valves or post AL. Pediatric ??(12 years and under): 1.5 - 3.0 Although the target range in children is not well established, ?INR values of 1.5 - 3.0 are recommended for most patients. ?Higher values have been used in children with prosthetic ?cardiac valves and hereditary clotting disorders. [place] (<3 days) therapeutic ranges have not been established. Alize Arteaga MD HEMATOLOGY YONI SERRANO Performing Organization Address City/State/[facility] Co de Phone Number [facility] LABORATORY SERVICES [facility]# [id number] [address] [place] [address] documented in this encounter Visit Diagnoses Diagnosis [...] Starting on Katie 11/13/18 at 1000, Until Katie 11/13/18 at 1116, Routine New Bag 11/13/2018 [...] Right documented in this encounter Care Teams Mems Device Scientist Relationship Specialty Start Date End Date Guerrero Middleton PA-C PCP - General Physician Special Inspector 02/13/18 documented as of this encounter
--- OUTSIDE RECORDS SUMMARY | 2024-05-03 21:56 | XMS_ITS | Encounter Summary ---
Author Organization [facility] Address [address] [place] [address] Care Team Providers Care Avp Name Role Phone Guerrero Middleton PA-C Primary Care Provide r Encounter Details Date Type Department Care Team (Latest Contact Info) Description 01/07/2019 10:00 AM CDT - 01/07/2019 11:59 PM T Hospital Encounter [facility] Blood Bank Donor Center S [facility] [address] [place] [address] Alize Arteaga MD NO ADDRESS ON FILE [...] HLD, hypothyroidism, PCOS ?? Meds: as per [employer] / [employer]. ?? Exam: ??Patient resting in chair. ??Port [...] diet recommended by the doctor kamilla at [facility]. 5. Patient complained port discomfort. Evaluated by IR at end of November. Plan is for three months of watchful waiting. To revisit at end of February 2019. 6. Plan for next plex in one week. Do not need to wait for triglyceride results to treat. ?? I have seen and examined the patient, reviewed pertinent notes and records. ?? Alize Arteaga MD, PhD Presales Senior Specialist, therapeutic apheresis service [phone] Procedure #6 notes: patient tolerated procedure well. documented in this encounter Plan of Treatment Upcoming Encounters Date Type Department Care Team (Late st Contact Info) Description 09/14/2024 3:00 PM CDT Office Visit [facility] Heart and Vascular - [facility] [address] [place] [address] Marlys Mayer MD [address] [place], [place] [id number] Scheduled Orders Name Type Priority Associated Diagnoses Orde r Schedule MICROALBUMIN/CREATIN INE RATIO, RANDOM UR Lab Routine Type 2 diabetes mellitus with hyperglycemia, with long-term current use of insulin Added to HDF configuration to grandchildren will have ORD item 6140 populate with time. for 1 Occurrences starting [...] 377(H) <150 mg/dL 01/07/2019 12:19 PM CDT [facility] LABORATORY SERVICES [facility] Blood Collection / Unknown 01/07/2019 11:39 AM CDT 01/07/2019 11:39 AM CDT [facility] - 01/07/2019 12:19 PM CDT TRIGLYCERIDES ? mg/dL Normal ?< 150 Borderline High ?150 - 199 High ? 200 - 499 Very High ? >= 500 Based on AHA/NCEP Guidelines. Alize Arteaga MD CHEMISTRY ORDER OSVALDO Performing Organization Address [facility] de Phone Number [facility] [employer]# [id number] [address] [place] [address] * (ABNORMAL) TRIGLYCERIDE (01/07/2019 10:26 AM CDT) TRIGLYCERIDE 972(H) <150 mg/dL 01/07/2019 11:12 AM CDT [facility] Blood Collection / Unknown 01/07/2019 10:26 AM CDT 01/07/2019 10:26 AM CDT [facility] - 01/07/2019 11:12 AM CDT TRIGLYCERIDES ? mg/dL Normal ?< 150 Borderline High ?150 - 199 High ? 200 - 499 Very High ? >= 500 Based on AHA/NCEP Guidelines. Alize Arteaga MD CHEMISTRY ORDER OSVALDO Performing Organization Address [facility] de Phone Number [facility] [employer] [facility]# [id number] [address] [place] [address] * (ABNORMAL) CBC WITHOUT DIFFERENTIAL (01/07/2019 10:25 AM CDT) WBC 9.8 4.0 - 9.8 K/uL 01/07/2019 10:31 AM T [facility] LABORATORY SERVICES - [facility] RBC 4.33 3.90 - 4.90 M/uL 01/07/2019 10:31 AM [facility] LABORATORY SERVICES - [facility] HEMOGLOBIN 12.5 11.8 - 14.8 g/dL 01/07/2019 10:31 AM [facility] LABORATORY SERVICES - [facility] HEMATOCRIT 38.3 35.5 - 44.0 % 01/07/2019 10:31 AM [facility] LABORATORY SERVICES - [facility] MCV 88.5 82.0 - 99.0 fL 01/07/2019 10:31 AM [facility] LABORATORY SERVICES - [facility] MCH 28.9 27.2 - 32.6 pg 01/07/2019 10:31 AM [facility] LABORATORY SERVICES - . [facility] MCHC 32.6 31.5 - 35.5 g/dL 01/07/2019 10:31 AM [facility] LABORATORY SERVICES - [facility] PLATELETS 255 140 - 350 K/uL 01/07/2019 10:31 AM [facility] SERVICES - [facility] MPV 9.1(L) 9.3 - 12.4 fL 01/07/2019 10:31 AM T [facility] SERVICES - [facility] RDW 13.5 11.5 - 14.5 % 01/07/2019 10:31 AM [facility] LABORATORY SERVICES - [facility] RDW-STDEV 44.2 37.1 - 48.7 fL 01/07/2019 10:31 AM [facility] LABORATORY SERVICES - [facility] Blood Collection / Unknown 01/07/2019 10:25 AM CDT 01/07/2019 10:25 AM CDT Alize Arteaga MD HEMATOLOGY YONI SERRANO [facility] Organization Address City/State/ZIP Co de Phone Number [facility] LABORATORY SERVICES - [facility]# [id number] [address] [facility] [place] [place] [address] documented in this encounter Visit Diagnoses Diagnosis [...] Units documented in this encounter Care Teams Avp Relationship Specialty Start Date End Date Guerrero Middleton PA-C PCP - General Physician Baggageman 02/13/18 documented as of this encounter
--- OUTSIDE RECORDS SUMMARY | 2024-05-03 21:56 | XMS_ITS | Encounter Summary ---
Author Organization [facility] Address [address] [place] [address] Care Team Providers Care Superintendent Compressor Stations Name Role Phone Guerrero Middleton PA-C Primary Care Provide r Encounter Details Date Type Department Care Team (Latest Contact Info) Description 11/20/2018 9:42 AM CDT - 11/20/2018 11:59 PM T Hospital Encounter [facility] Blood Bank Donor Center S [employer] [address] [place] [address] Marlys Mayer MD [address] [place] [address] Discharge Disposition: Home or Self Care Social [...] How often do you attend chur or confucianist services? Never 08/21/2018 Do you [...] [facility] Heart [facility] - [facility] [address] [place] [address] Marlys Mayer MD [address] [place] [address] documented as of this encounter Procedures Procedure [...] 1,066(H) <150 mg/dL 11/20/2018 11:22 AM CDT [facility] LABORATORY [facility] Blood Collection / Unknown 11/20/2018 9:41 AM CDT 11/20/2018 10:29 AM CDT Narrative [facility] LABORATORY SERVICES - [facility] - 11/20/2018 11:22 AM CDT TRIGLYCERIDES ? mg/dL Normal ?< 150 Borderline High ?150 - 199 High ? 200 - 499 Very High ? >= 500 Based on AHA/NCEP Guidelines. David Boyle MD CHEMISTRY ORDERABLE S [facility] LABORATORY SERVICES [facility]# [id number] [address] [place] [place] [address] documented in this encounter Visit Diagnoses Diagnosis [...] Port documented in this encounter Care Teams Superintendent Compressor Stations Relationship Specialty Start Date End Date Guerrero Middleton PA-C PCP - General Physician Topology Teacher 02/13/18 documented as of this encounter
--- OUTSIDE RECORDS SUMMARY | 2024-05-03 21:56 | XMS_ITS | Encounter Summary ---
Author Organization [facility] Address [address] [place] [address] Care Team Providers Care Nuclear Cardiology Technologist Name Role Phone Guerrero Middleton PA-C Primary Care Provide r Reason for Visit * Reason Onset Date Comments tx for elevated triglycerides 10/24/2018 Encounter Details Date Type Department Care Team (Late st Contact Info) Description 10/24/2018 Telephone [facility] Heart and Vascular At [facility] [address] [place] [phone] Marlys Mayer MD [address] [place] [address] [address] [place] [address] tx for elevated triglycerides Social [...] since pt has not been seen at [facility]. And if we sent the email that [...] lipid panel-hospital discharge note-Dr. Mayer's note to [email or web address], Ratna confirm this is Dr. Osorio's [email or web address] documented in this encounter Plan of Treatment Upcoming Encounters Date Type Department Care Team (Late st Contact Info) Description 09/14/2024 3:00 PM CDT Office Visit [facility] Heart and Vascular - [facility] [address] [place] [address] Marlys Mayer MD [address] [place] [address] documented as of this encounter Visit Diagnoses Not on filedocumented in this encounter Care Teams Nuclear Cardiology Technologist Relationship Specialty Start Date End Date Guerrero Middleton PA-C PCP - General Physician Division Head 02/13/18 documented as of this encounter
--- OUTSIDE RECORDS SUMMARY | 2024-05-03 21:56 | XMS_ITS | Encounter Summary ---
Author Organization [facility] Address [address] [place] [address] Care Team Providers Care Earth Sciences Professor Name Role Phone Guerrero Middleton PA-C Primary Care Provide r Encounter Details Date Type Department Care Team (Latest Contact Info) Description 12/24/2018 11:59 PM CDT Hospital Encounter [facility] Blood Bank Donor Center S [facility] [address] [place] [address] Alize Arteaga MD NO ADDRESS ON FILE [...] nausea. Patient recently seen in consultation at [facility]. She was recommended a low fat diet by [facility], as has previously been recommended by her [...] diet recommended by the doctor kamilla at [facility]. 5. Patient was seen by IR [...] and records. ?? Alize Arteaga MD, PhD Sash Repairer, therapeutic apheresis service [phone] documented in this encounter Plan of Treatment Upcoming Encounters Date Type Department Care Team (Late st Contact Info) Description 09/14/2024 3:00 PM CDT Office Visit [facility] Heart and Vascular - [facility] [address] [place] [address] Marlys Mayer MD [address] [place] [address] documented as of this encounter Procedures Procedure [...] TRIGLYCERIDE (12/24/2018 9:58 AM CDT) Pathologist [facility] TRIGLYCERIDE 431(H) <150 mg/dL 12/24/2018 10:32 AM CDT [facility] Blood Venipuncture / Unknown 12/24/2018 9:58 AM CDT 12/24/2018 9:58 AM CDT [facility] [employer] [facility] - 12/24/2018 10:32 AM CDT TRIGLYCERIDES ? mg/dL Normal ?< 150 Borderline High ?150 - 199 High ? 200 - 499 Very High ? >= 500 Based on AHA/NCEP Guidelines. Alize Arteaga MD CHEMISTRY ORDER OSVALDO [facility] [employer] [facility]# [id number] [address] [facility] [place] [id number] * (ABNORMAL) CBC WITHOUT DIFFERENTIAL (12/24/2018 9:56 AM CDT) Pathologist [facility] WBC 11.1(H) 4.0 - 9.8 K/uL 12/24/2018 10:03 AM CDT [facility] [employer] RBC 4.60 3.90 - 4.90 M/uL 12/24/2018 10:03 AM CDT [facility] LABORATORY SERVICES - [facility] HEMOGLOBIN 13.2 11.8 - 14.8 g/dL 12/24/2018 10:03 AM [facility] LABORATORY SERVICES - . [facility] HEMATOCRIT 41.8 35.5 - 44.0 % 12/24/2018 10:03 AM [facility] LABORATORY SERVICES - . [facility] MCV 90.9 82.0 - 99.0 fL 12/24/2018 10:03 AM [facility] LABORATORY SERVICES - . [facility] MCH 28.7 27.2 - 32.6 pg 12/24/2018 10:03 AM [facility] LABORATORY SERVICES - . [facility] MCHC 31.6 31.5 - 35.5 g/dL 12/24/2018 10:03 AM [facility] LABORATORY SERVICES - . [facility] PLATELETS 257 140 - 350 K/uL 12/24/2018 10:03 AM [facility] LABORATORY [facility] - . [facility] MPV 8.8(L) 9.3 - 12.4 fL 12/24/2018 10:03 AM [facility] LABORATORY SERVICES - . [facility] RDW 14.3 11.5 - 14.5 % 12/24/2018 10:03 AM [facility] LABORATORY SERVICES - [facility] RDW-STDEV 47.8 37.1 - 48.7 fL 12/24/2018 10:03 AM [facility] LABORATORY SERVICES - [facility] Blood Collection / Unknown 12/24/2018 9:56 AM CDT 12/24/2018 9:57 AM CDT Alize Arteaga MD HEMATOLOGY YONI [facility] Organization Address City/State/ZIP Co de Phone Number [facility] LAB[facility]ORY SERVICES - [facility]# [id number] [address] [place] [address] [address] [phone] documented in this encounter Visit Diagnoses Diagnosis [...] pancreatitis documented in this encounter Care Teams Earth Sciences Professor Relationship Specialty Start Date End Date Guerrero Middleton PA-C PCP - General Physician Section Beamer 02/13/18 documented as of this encounter
--- OUTSIDE RECORDS SUMMARY | 2024-05-03 21:56 | XMS_ITS | Encounter Summary ---
Author Organization [facility] Address [address] [place] [address] Care Team Providers Care Desktop Analyst Name Role Phone Guerrero Middleton PA-C Primary Care Provide r Reason for Visit * Reason Comments Follow Up 6 month check up Encounter Details Date Type Department Care Team (Latest Contact Info) Description 10/23/2018 1:45 PM CDT Office Visit [facility] V[facility] At [facility] [address] [place] [id number] Marlys Mayer MD [address] [place] [address] [address] [place] [address] Chylomicronemia syndrome (Primary Dx); Type [...] u PM : 22 u . ??? [id number]-[id number]-[id number] DR (CREON) 60-12-38 capsule Take 2 Capsules [...] TUNNELED VENOUS CATHETER PLACEMENT Right 09/29/2018 ??? [place] ESOPHAGOGASTRODUODENOSCOPY TRANSORAL DIAGNOSTIC N/A 03/08/2018 ESOPHAGOGASTRODUODENOSCOPY performed by Ceasar Vega MD at [facility] GI [facility] Social History Socioeconomic History ??? Marital status: Spouse name: Not on file ??? Number of children: Not on file ??? Years of education: Not on file ??? Highest education level: Not on file Occupational History Employer: [employer] Social Needs ??? Financial resource strain: Not [...] Gets together: Three times a week Attends gnosticist service: Never Active member of club or [...] current medications Management was discussed with her clinical services manager Dr Rudd who has voiced reservations about [...] [facility] [id number] [place] [phone] Marlys Mayer MD [address] [place] [address] documented as of this encounter Visit Diagnoses Diagnosis Chylomicronemia syndrome- Primary Hyperchylomicronemia Type 2 diabetes mellitus without complication, with long-term current use of insulin Class 1 obesity due to excess calories with serious comorbidity and body mass index (BMI) of 32.0 to 32.9 in adult documented in this encounter Care Teams Desktop Analyst Relationship Specialty Start Date End Date Guerrero Middleton PA-C PCP - General Physician Rougher Helper 02/13/18 documented as of this encounter
--- OUTSIDE RECORDS SUMMARY | 2024-05-03 21:56 | XMS_ITS | Encounter Summary ---
Author Organization [facility] Address [address] [place] [address] Care Team Providers Care Apple Packing Header Name Role Phone Guerrero Middleton PA-C Primary Care Provide r Encounter Details Date Type Department Care Team (Latest Contact Info) Description 11/18/2018 9:56 AM CDT - 11/18/2018 11:59 PM T Hospital Encounter [facility] Blood [facility] [employer] [address] [place] [address] Marlys Mayer MD [address] [place] [address] Discharge Disposition: Home or Self Care Social [...] How often do you attend chur or protestant services? Never 08/21/2018 Do you [...] [facility] - [facility] [phone] [place] [phone] Marlys Mayer MD [address] [place] [address] documented as of this encounter Procedures Procedure [...] 928(H) <150 mg/dL 11/18/2018 11:23 AM CDT [facility] Blood Collection / Unknown 11/18/2018 10:20 AM CDT 11/18/2018 10:34 AM CDT Narrative [facility] LABORATORY SERVICES - [facility] - 11/18/2018 11:23 AM CDT TRIGLYCERIDES ? mg/dL Normal ?< 150 Borderline High ?150 - 199 High ? 200 - 499 Very High ? >= 500 Based on AHA/NCEP Guidelines. David Boyle MD CHEMISTRY ORDERABLE S [facility] LABORATORY SERVICES [facility]# [id number] [address] [place] [address] documented in this encounter Visit Diagnoses Diagnosis [...] Port documented in this encounter Care Teams Apple Packing Header Relationship Specialty Start Date End Date Guerrero Middleton PA-C PCP - General Physician Regulatory Intern 02/13/18 documented as of this encounter
--- OUTSIDE RECORDS SUMMARY | 2024-05-03 21:56 | XMS_ITS | Encounter Summary ---
Author Organization [facility] Address [address] [place] [address] Care Team Providers [employer] Sales Representative Name Role Phone Guerrero Middleton PA-C [...] Auth/Cert Specialty Diagnoses / Procedures Referred By Tequial t Referred To Contact Critical Care Medicine [facility] Transitional Care Unit [address] [place] [address] Referral ID Status Reason Start Date Expiration Date Visits Re quested Visits Authorized [id number] 1 1 Encounter Details Date Type Department Care Team (Latest Contact Info) Description 10/28/2018 4:03 PM CDT - 10/31/2018 3:05 PM CDT Hospital Encounter [facility] Transitional Care Unit [address] [place] [address] Phoenix Livingston MD [address] [place] [address] Angie Louis MD [address] [facility] [address] [address] Kim Salvador, DO [address] [facility] [address] [place] [address] Chylomicronemia syndrome Discharge Disposition: Home [...] Restrepo DO - 10/31/2018 11:45 AM CDT [facility] Adult Hospitalist Discharge Summary Casandra Doss 42 y.o. female 1975 CSN: [id number] Date of Admission: 10/28/2018 Date of Discharge: [...] with and Dr. Rudd as outpatient. -Continue SUPERVISOR STONE lofibra, fish oil, lipitor -Had SARAH powerflow catheter placed on 10/29. plasmapheresis done daily until TG <500. -Now, plan for bi-weekly prophylactic treatment as outpatient. ?? Abdominal Pain: lipase negative, but similar to prior presentation with abdominal pain which improved with treatment of above. -Resolved with plasmapheresis. ?? T2DM: insulin gtt started initially on admission, has since been transitioned back to basal/bolus. Resume SUPERVISOR STONE regimen at discharge. ?? Hypothyroidism: continue SUPERVISOR STONE synthroid Chronic Pancreatitis: continue SUPERVISOR STONE creon Depression/Anxiety: continue SUPERVISOR STONE celexa, trazodone GERD: continue SUPERVISOR STONE PPI Discharge medications and new prescriptions: Medication [...] and at bedtime. Refills: 0 Generic drug: mehnvtj-tvmuqf-rshpxtpg DR dicyclomine 10 mg capsule Commonly known [...] the procedure. ?? Alize Arteaga MD, PhD Superintendent Power, therapeutic apheresis service [phone] * Robyn Hernandez RN - 10/31/2018 2:02 PM CDT Plasma exchange number 3 completed using R chest bard port. 1.0 Volume exchange using 5% Albumin asreplacement fluid for a 100% fluid balance. Patient tolerated well. Port was de-accessed. Next procedure will be outpatient in two weeks per Dr. Arteaga. * Kim Restrepo DO - 10/30/2018 11:30 AM CDT [facility] Adult Hospitalist Progress Note Admit Date: 10/28/2018 [...] with and Dr. Rudd as outpatient. -Continue SUPERVISOR STONE lofibra, fish oil -Had SARAH powerflow catheter placed on 10/29. -Plasmapharesis daily per Dr. Arteaga. -Plan to continue with daily treatment until TG<500. Then, plan for bi-weekly prophylactic treatment as outpatient. Abdominal Pain: lipase negative, but similar to prior presentation with abdominal pain which improved with treatment of above. -Boykins and morphine prn. T2DM: insulin gtt started initially on admission, has since been transitioned back to basal/bolus. SUPERVISOR STONE on metformin, lantus 28u qAM, 38u qPM. Prandial insulin is 14-16-22. -Blood sugars currently controlled on lantus 15u BID, 7u prandial with SSI. -Continue to monitor and adjust regimen as indicated. Hypothyroidism: continue SUPERVISOR STONE synthroid Chronic Pancreatitis: continue SUPERVISOR STONE creon Depression/Anxiety: continue SUPERVISOR STONE celexa, trazodone GERD: continue SUPERVISOR STONE PPI DVT Prophylaxis - sequential compression devices [...] lab and test results. Kim Restrepo DO [facility] Hospitalist Pager: [phone] * Rosales Tapia, RN - 10/30/2018 10:57 [...] no further intervention planned. Kim Restrepo DO [facility] Adult Hospitalist Pager: [phone] * Sari Sanford - 10/29/2018 3:33 PM CDT Plasma exchange completed using the R chest implanted BARD port placed today. Port was accessed in IR. 5% Albumin used as replacement fluid for a 1.0 volume exchange. Patient tolerated without incident. Daily exchanges until triglycerides are less than 500. * Kim Restrepo DO - 10/29/2018 3:19 PM CDT [facility] Adult Hospitalist Progress Note Admit Date: 10/28/2018 [...] with and Dr. Rudd as outpatient. -Continue SUPERVISOR STONE lofibra, fish oil -Had SARAH powerflow catheter placed today. -Plasmapharesis started today per Dr. Arteaga. -Plan to continue with daily treatment until TG<500. Then, plan for bi-weekly prophylactic treatment as outpatient. Abdominal Pain: lipase negative, but similar to prior presentation with abdominal pain which improved with treatment of above. -Boykins and morphine prn. T2DM: insulin gtt started initially on admission. SUPERVISOR STONE on metformin, lantus 28u qAM, 38u qPM. Prandial insulin is 14-16-. -D/w Dr. Rudd, will transition to basal/bolus insulin. -Start lantus at 15u BID for now as has been NPO today, poor PO intake with abdominal pain. -Start prandial insulin at 7 TID. -Continue to monitor and adjust regimen as indicated. Hypothyroidism: continue SUPERVISOR STONE synthroid Chronic Pancreatitis: continue SUPERVISOR STONE creon Depression/Anxiety: continue SUPERVISOR STONE celexa, trazodone GERD: continue SUPERVISOR STONE PPI DVT Prophylaxis - sequential compression devices Pettit catheter:absent Lines: SARAH powerflow cathether, peripheal IV PT/OT: at functional baseline Activity Order: Present Activity: in bed (10/29/18 8449) Current Code Status -Full Code Plan discussed [...] lab and test results. Kim Restrepo DO [facility] Adult Hospitalist Pager: [phone] * Alize Arteaga MD - 10/29/2018 2:43 [...] remained immediately available throughout the procedure. ?? Aliez Arteaga MD, PhD Superintendent Power, therapeutic apheresis service [phone] * Aura Parks RN - 10/29/2018 12:14 [...] Peacock MD - 10/29/2018 2:11 AM [facility]T [facility] Two patient identifier: Casandra [...] following two coworkers: Ward OLGUIN and Humaira OLGUINrelay man or upon transfer to: [facility] 4228 ~~~~~~~~~~~~~~~~~~~~~~~~~~~~ Is the patient a paraplegic/quadriplegic? [...] White NP - 10/28/2018 10:26 PM CDT [facility] Two patient identifier: Casandra [...] Louis MD - 10/28/2018 5:17 PM CDT [facility] Hospitalist H&P Patient Name: Casandra Doss Copy [...] last ( 5 days ago) and her equity manager Dr. Rudd saw her today and directed her to [facility]. from pathology hs discussed with Dr. [...] TUNNELED VENOUS CATHETER PLACEMENT Right 09/29/2018 ??? CO ESOPHAGOGASTRODUODENOSCOPY TRANSORAL DIAGNOSTIC N/A 03/08/2018 ESOPHAGOGASTRODUODENOSCOPY performed by Ceasar Vega MD at [facility] GI LAB Current Medications: Prior [...] times daily as needed for Anxiety . nhstdzo-fpmolq-kgphknuk DR TING) 60-12-38 capsule Yes No Sig: [...] pancreatitis in there past. Plan: see above, Boykins and IV Morphine prn for pain, 3. [...] Code Status: Full Code Angie Louis MD [facility] [phone] documented in this encounter Consult Notes * [...] last ( 5 days ago) and her equity manager Dr. Rudd saw her today and directed her to [facility]. from pathology hs discussed with Dr. [...] Have recommended that patient speak to her Youth Development Specialist and/or a Appointment Manager about these repeated occurrences. Keep skin moisturized. Follow all skin care interventions found in the Skin Care Prevention Pathway related to appropriateBraden score. Please notify insights strategist if skin condition deteriorates, any other skin care issues arise, or any questions/concerns. Thank You. RAFFY Villatoro, RN, CWOCN Zone: [id number] * Kortney Bowles PA - 10/29/2018 8:11 [...] TUNNELED VENOUS CATHETER PLACEMENT Right 09/29/2018 ??? CO ESOPHAGOGASTRODUODENOSCOPY TRANSORAL DIAGNOSTIC N/A 03/08/2018 ESOPHAGOGASTRODUODENOSCOPY performed by Ceasar Vega MD at [facility] GI LAB Medications Medications Prior to [...] 60 Tablet 0 10/28/2018 at 0930 ??? yuillsf-xqbufs-nywuowsd DR (CREON) 60-12-38 capsule Take 2 Capsules [...] level: Not on file Occupational History Employer: [employer] Specific Social Needs ??? Financial resource strain: Not [...] with no difficulty- documented in Doc Flowsheets ([employer]). Peripheral IV appropriate at this time- needed [...] Hassan RN - 10/28/2018 3:47 PM CDT [facility] ED Adult Female Abdominal Pain Protocol [facility] Approved by: [facility] - Medical Executive Committee Approval Date: ORDERS ARE ENTERED ???PER PROTOCOL?? Nursing Orders: o Insert peripheral IV (excessive vomiting or diarrhea) Laboratory Orders: o CBC with diff ([id number]) o CMP (LAB17) o If female of childbearing age: POC Urine HCG (POC7) or HCG Qualitative urine (EXA476) if sending to lab o Urinalysis with Reflex Microscopy (YUC893) o Serum HCG (if knowingly ) (BSZ710) o Obtain serum lipase (LAB99) if upper abdominal pain o Draw and send extra tubes to lab (ED hold) ([id number]) Diagnostic Test Orders: o If RUQ pain, [...] with meals. Qty: 60 Tablet, Refills: [address] ty[address]ym-fuuuuy-fcubtzkt [address] (CREON) 60-12-38 capsule Take 2 Capsules [...] Glucose COMMENT 2, GLU POC Notified RN/MD BOARD SETTER NAME HANS BEE COMPREHENSIVE METABOLIC PANEL LIPID [...] 4:31 PM: Discussed case with Dr. Louis, [facility] Hospitalist. She will admit the patient to [...] with meals. Qty: 60 Tablet, Refills: 0 idgjuip-gpcqba-ypmzotjo DR (CREON) 60-12-38 capsule Take 2 Capsules [...] If patient will go to SNF at wa, patient does not need a PASARR screening to be started (ie, prior psych admission or intensive services, MR/DD diagnosis prior to the age of 22) Readmission Risk (patient becomes high risk with a score of 8 or greater) 5 Total Score 5 Prior Hospitalizations Primary Emergency Contact: José Miguel Doss PCP verified as Guerrero Middleton PA-C. Patient's insurance verified as Payor: No Boundaries [employer] / Plan: ALL SAVERS CHOICE / Product Type: Commercial / The patient's preferred pharmacy is [facility] [address] [place] [address] NASIM Discussed discharge goals and no needs anticipated at this time. Care Management will continue to follow and assist as needed. Day 1 - Current ([place] Pathway: Adult and Obstetrics) Patient, family, or healthcare designee is participating in individual care plan process Outcome: Met Problem: Discharge Planning Goal: Identify discharge needs upon admission and through discharge Description Outcome: Progressing Priya Salazar RN, MSN Cath Lab Nurse [phone] * Treatment Plan - Marcus Cosme RN - 10/29/2018 9:04 AM CDT [facility] Skin Care Injury Prevention and Treatment Protocol Approved by: [facility] - Medical Executive Committee Date: 05/16/2018 ORDERS ARE ENTERED ???PER PROTOCOL?? Enter the protocol in the patient???s electronic health record using Scardse: .[email or web address] Nursing Orders: o When a patient [...] For [facility] [address] [place] [address] Marlys Mayer MD [address] [place] [address] documented as of this encounter Procedures Procedure [...] - 99 mg/dL 10/31/2018 1:49 PM CDT [facility] Physicians Reference Laboratory [facility] BOARD SETTER NAME POC YAMIL DEL TORO 10/31/2018 1:49 PM CDT [facility] Physicians Reference Laboratory [facility] Whole blood specimen (specimen) 10/31/2018 1:49 PM CDT 10/31/2018 2:09 PM CDT Kim Larsen DO POINT OF CARE TESTING [facility] Physicians Reference Laboratory [facility] CLIA# [id number] [address] [place] [address] * POC GLUCOSE (10/31/2018 9:54 AM CDT) GLUCOSE POC 99 74 - 99 mg/dL 10/31/2018 9:54 AM CDT [facility] LABORATORY [facility] BOARD SETTER NAME POC LYNNETTE DELACRUZ 10/31/2018 9:54 AM CDT [facility] LABORATORY [facility] Whole blood specimen (specimen) 10/31/2018 9:54 AM CDT 10/31/2018 10:11 AM CDT Kim Larsen DO POINT OF CARE TESTING [facility] Physicians Reference Laboratory [facility] CLIA# [id number] [address] [place] [address] * PROTIME-INR (10/31/2018 3:19 AM CDT) PROTIME 13.9 12.7 - 15.1 Seconds 10/31/2018 3:52 AM CDT [facility] LABORATORY [facility] INR 1.1 0.9 - 1.1 10/31/2018 3:52 AM CDT [facility] LABORATORY [facility] Blood Venipuncture / Unknown 10/31/2018 3:19 AM CDT 10/31/2018 3:31 AM CDT Narrative [facility] LABORATORY [facility] - 10/31/2018 3:52 AM CDT INR Therapeutic [...] prosthetic ?cardiac valves and hereditary clotting disorders. [place] (<3 days) therapeutic ranges have not been established. Alize Arteaga MD HEMATOLOGY ORDE MAGGIE Performing Organization Address [facility] Co de Phone Number [facility] Physicians Reference Laboratory [facility]# [id number] [address] [place] [address] * (ABNORMAL) TRIGLYCERIDE (10/31/2018 3:19 AM CDT) Pathologist [facility] TRIGLYCERIDE 599(H) <150 mg/dL 10/31/2018 4:13 AM CDT [facility] Physicians Reference Laboratory [facility] Blood Venipuncture / Unknown 10/31/2018 3:19 AM CDT 10/31/2018 3:31 AM CDT [facility] Physicians Reference Laboratory [facility] - 10/31/2018 4:13 AM CDT TRIGLYCERIDES ? mg/dL Normal ?< 150 Borderline High ?150 - 199 High ? 200 - 499 Very High ? >= 500 Based on AHA/NCEP Guidelines. Alize Arteaga MD CHEMISTRY ORDER OSVALDO Performing Organization Address [facility] Co de Phone Number [facility] Physicians Reference Laboratory [facility]# [id number] [address] [place] [address] * (ABNORMAL) CBC WITHOUT DIFFERENTIAL (10/31/2018 3:19 AM CDT) WBC 7.3 4.0 - 9.8 K/uL 10/31/2018 3:45 AM CDT [facility] Physicians Reference Laboratory [facility] RBC 4.14 3.90 - 4.90 M/uL 10/31/2018 3:45 AM CDT [facility] HEMOGLOBIN 11.9 11.8 - 14.8 g/dL 10/31/2018 3:45 AM CDT [facility] [facility] HEMATOCRIT 37.0 35.5 - 44.0 % 10/31/2018 3:45 AM CDT [facility] [employer] [facility] MCV 89.4 82.0 - 99.0 fL 10/31/2018 3:45 AM CDT [facility] [employer] [facility] MCH 28.7 27.2 - 32.6 pg 10/31/2018 3:45 AM CDT [facility] [employer] [facility] MCHC 32.2 31.5 - 35.5 g/dL 10/31/2018 3:45 AM CDT [facility] LABORATORY SERVICES - [facility] PLATELETS 180 140 - 350 K/uL 10/31/2018 3:45 AM CDT [facility] [facility] MPV 9.9 9.3 - 12.4 fL 10/31/2018 3:45 AM CDT [employer] [facility]ORATORY SERVICES - [facility] RDW 15.9(H) 11.5 - 14.5 % 10/31/2018 3:45 AM T [facility] [employer] [facility] RDW-STDEV 51.8(H) 37.1 - 48.7 fL 10/31/2018 3:45 AM CDT [facility] [employer] [facility] Blood Venipuncture / Unknown 10/31/2018 3:19 AM CDT 10/31/2018 3:31 AM CDT Alize Arteaga MD HEMATOLOGY YONI SERRANO [facility] Organization Address City/State/ZIP Co de Phone Number [facility] Physicians Reference Laboratory SERVICES [facility]# [id number] [address] [place] [address] * (ABNORMAL) POC GLUCOSE (10/30/2018 10:44 PM CDT) GLUCOSE POC 103(H) 74 - 99 mg/dL 10/30/2018 10:44 PM CDT [employer] LABORATORY SERVICES [facility] COMMENT, GLU POC Notified RN/MD 10/30/2018 10:44 PM CDT [facility] [facility] BOARD SETTER NAME POC JESSICA REGALADO 10/30/2018 10:44 PM CDT [facility] [facility] Whole blood specimen (specimen) 10/30/2018 10:44 PM CDT 10/30/2018 11:02 PM CDT Kim Larsen DO POINT OF CARE TESTING Performing Organization Address [facility]/ZIP Co de Phone Number [facility] CLIA# [id number] [address] [place] [address] * (ABNORMAL) POC GLUCOSE (10/30/2018 6:51 PM CDT) GLUCOSE POC 157(H) 74 - 99 mg/dL 10/30/2018 6:51 PM CDT [facility] LABORATORY SERVICES [facility] COMMENT, GLU POC Notified RN/MD 10/30/2018 6:51 PM CDT [facility] LABORATORY [facility] BOARD SETTER NAME POC ELIGIO MARTIN 10/30/2018 6:51 PM CDT [facility] LABORATORY [facility] Whole blood specimen (specimen) 10/30/2018 6:51 PM CDT 10/30/2018 7:11 PM CDT Kim Larsen DO POINT OF CARE TESTING Performing Organization Address [facility] Co de Phone Number [facility] Physicians Reference [id number] [address] [place] [address] * (ABNORMAL) POC GLUCOSE (10/30/2018 1:57 PM CDT) GLUCOSE POC 112(H) 74 - 99 mg/dL 10/30/2018 1:57 PM CDT [facility] LABORATORY [facility] BOARD SETTER NAME POC LYNNETTE DELACRUZ 10/30/2018 1:57 PM CDT [facility] LABORATORY [facility] Whole blood specimen (specimen) 10/30/2018 1:57 PM CDT 10/30/2018 2:09 PM CDT Kim Larsen DO POINT OF CARE TESTING [facility] LABORATORY SERVICES - [facility] CLIA# [id number] [address] [place] [address] * (ABNORMAL) BASIC METABOLIC PANEL (10/30/2018 10:31 AM CDT) SODIUM 137 136 - 145 mmol/L 10/30/2018 11:09 AM [facility] POTASSIUM 3.8 3.5 - 5.0 mmol/L 10/30/2018 11:09 AM [facility] [employer] [facility] Comment:Moderate hemolysis p resent. Can cause significant falsely elevated result. Redraw if indicated. CHLORIDE 108(H) 98 - 107 mmol/L 10/30/2018 11:09 AM [facility] [employer] [facility] Reference [facility] CO2 19(L) 22 - 29 mmol/L 10/30/2018 11:09 AM [facility] [employer] [facility] CALCIUM 7.8(L) 8.6 - 10.2 mg/dL 10/30/2018 11:09 AM [facility] [employer] [facility] Phys[facility] Reference Laboratory [facility] BUN 3(L) 6 - 20 mg/dL 10/30/2018 11:09 AM [facility] [employer] Phys[facility] Reference Laboratory [facility] CREATININE 0.39(L) 0.51 - 0.95 mg/dL 10/30/2018 11:09 AM [facility] Physicians Reference Laboratory [facility] GLUCOSE 156(H) 74 - 99 mg/dL 10/30/2018 11:09 AM [facility] [employer] [facility] Reference Laboratory [facility] GFR >60 >=60 mL/min/1.7 3 sq meter 10/30/2018 11:09 AM [facility] [employer] [facility] Comment: eGFR has not been validated [...] 3 sq meter 10/30/2018 11:09 AM CDT [facility] LABORATORY [facility] ANION GAP 10 8 - 16 mmol/L 10/30/2018 11:09 AM T [facility] LABORATORY [facility] Blood Venipuncture / Unknown 10/30/2018 10:31 AM CDT 10/30/2018 10:38 AM CDT Kim Larsen DO CHEMISTR Y ORDERABLES [facility] Physicians Reference Laboratory [facility] CLIA# [id number] [address] [place] [address] * (ABNORMAL) POC GLUCOSE (10/30/2018 10:27 AM CDT) GLUCOSE POC 146(H) 74 - 99 mg/dL 10/30/2018 10:27 AM CDT [facility] Physicians Reference Laboratory [facility] BOARD SETTER NAME YAMIL FARIAS 10/30/2018 10:27 AM CDT [facility] Physicians Reference Laboratory [facility] Whole blood specimen (specimen) 10/30/2018 10:27 AM CDT 10/30/2018 10:49 AM CDT Kim Larsen DO POINT OF CARE TESTING Performing Organization Address [facility]/ZIP Co de Phone Number [facility] Physicians Reference Laboratory [facility] CLIA# [id number] [address] [place] [address] * (ABNORMAL) BASIC METABOLIC PANEL (10/30/2018 7:37 AM CDT) SODIUM 134(L) 136 - 145 mmol/L 10/30/2018 8:24 AM T [facility] Physicians Reference Laboratory [facility] POTASSIUM 3.5 - 5.0 mmol/L 10/30/2018 8:24 AM T [facility] LABORATORY [facility] Comment: Approved to report results except K+ (due to specimen hemolysis) per Yamil Del Toro at 8:57 AM on 10/30/2018. Test cannot be performed due to gross hemolysis present. ??Redraw if indicated. CHLORIDE 104 98 - 107 mmol/L 10/30/2018 8:24 AM T [employer] LABORATORY SERVICES [facility] CO2 21(L) 22 - 29 mmol/L 10/30/2018 8:24 AM T [employer] [facility] CALCIUM 7.7(L) 8.6 - 10.2 mg/dL 10/30/2018 8:24 AM T [employer] [facility] BUN 4(L) 6 - 20 mg/dL 10/30/2018 8:24 AM [facility] [employer] [facility] CREATININE 0.41(L) 0.51 - 0.95 mg/dL 10/30/2018 8:24 AM [facility] [employer] [facility] GLUCOSE 159(H) 74 - 99 mg/dL 10/30/2018 8:24 AM T [employer] [facility] GFR >60 >=60 mL/min/1.7 3 sq meter 10/30/2018 8:24 AM [facility] [employer] [facility] Comment: eGFR has not been validated [...] 3 sq meter 10/30/2018 8:24 AM T [employer] LABORATORY SERVICES [facility] ANION GAP 9 8 - 16 mmol/L 10/30/2018 8:24 AM T [email or web address] [facility] Blood Venipuncture / Unknown 10/30/2018 7:37 AM CDT 10/30/2018 7:46 AM CDT Kim Larsen DO CHEMISTR Y ORDERABLES [id number] [address] [place] [address] * PROTIME-INR (10/30/2018 6:05 AM CDT) PROTIME 12.7 12.7 - 15.1 Seconds 10/30/2018 6:24 AM CDT [facility] Physicians Reference Laboratory [facility] INR 1.0 0.9 - 1.1 10/30/2018 6:24 AM CDT [facility] Physicians Reference Laboratory [facility] Blood Venipuncture / Unknown 10/30/2018 6:05 AM CDT 10/30/2018 6:11 AM CDT Narrative [facility] Physicians Reference Laboratory [facility] - 10/30/2018 6:24 AM CDT INR Therapeutic [...] prosthetic ?cardiac valves and hereditary clotting disorders. [place] (<3 days) therapeutic ranges have not been established. Alize Arteaga MD HEMATOLOGY YONI SERRANO [facility]# [id number] [address] [place] [address] * (ABNORMAL) TRIGLYCERIDE (10/30/2018 6:05 AM CDT) TRIGLYCERIDE 2,155(H) <150 mg/dL 10/30/2018 6:57 AM CDT [facility] Physicians Reference Laboratory [facility] Blood Venipuncture / Unknown 10/30/2018 6:05 AM CDT 10/30/2018 6:11 AM CDT [facility] LABORATORY SERVICES - [facility] - 10/30/2018 6:57 AM CDT TRIGLYCERIDES ? mg/dL Normal ?< 150 Borderline High ?150 - 199 High ? 200 - 499 Very High ? >= 500 Based on AHA/NCEP Guidelines. Alize Arteaga MD CHEMISTRY ORDER OSVALDO [facility] Physicians Reference Laboratory SERVICES [facility]# [id number] [address] [facility] [place] [address] * (ABNORMAL) CBC WITHOUT DIFFERENTIAL (10/30/2018 6:05 AM CDT) Pathologist [facility] WBC 9.2 4.0 - 9.8 K/uL 10/30/2018 6:24 AM CDT [facility] SERVICES [facility] RBC 4.15 3.90 - 4.90 M/uL 10/30/2018 6:24 AM CDT [facility] [employer] LABORATORY SERVICES [facility] HEMOGLOBIN 13.0 11.8 - 14.8 g/dL 10/30/2018 6:24 AM CDT [facility] HEMATOCRIT 36.7 35.5 - 44.0 % 10/30/2018 6:24 AM CDT [facility] SERVICES [facility] MCV 88.4 82.0 - 99.0 fL 10/30/2018 6:24 AM CDT [facility] SERVICES - [facility] MCH 31.3 27.2 - 32.6 pg 10/30/2018 6:24 AM CDT [facility] LABORATORY SERVICES - [facility] MCHC 35.4 31.5 - 35.5 g/dL 10/30/2018 6:24 AM CDT [facility] LABORATORY SERVICES [facility] PLATELETS 227 140 - 350 K/uL 10/30/2018 6:24 AM CDT [facility] SERVICES - [facility] MPV 9.6 9.3 - 12.4 fL 10/30/2018 6:24 AM CDT [facility] LABORATORY SERVICES - [facility] RDW 15.9(H) 11.5 - 14.5 % 10/30/2018 6:24 AM CDT [facility] LABORATORY SERVICES - [facility] RDW-STDEV 51.5(H) 37.1 - 48.7 fL 10/30/2018 6:24 AM CDT [facility] LABORATORY SERVICES - [facility] Blood Venipuncture / Unknown 10/30/2018 6:05 AM CDT 10/30/2018 6:11 AM CDT Alize Arteaga MD HEMATOLOGY YONI SERRANO [facility] Physicians Reference Laboratory [facility] CLIA# [id number] [address] [facility] [address] [place] [address] * (ABNORMAL) POC GLUCOSE (10/29/2018 10:25 PM CDT) GLUCOSE POC 155(H) 74 - 99 mg/dL 10/29/2018 10:25 PM CDT [facility] LABORATORY SERVICES [facility] COMMENT, GLU POC Notified RN/MD 10/29/2018 10:25 PM CDT [facility] BOARD SETTER NAME POC JESSICA REGALADO 10/29/2018 10:25 PM CDT [facility] SERVICES [facility] Whole blood specimen (specimen) 10/29/2018 10:25 PM CDT 10/29/2018 10:42 PM CDT Kim Larsen DO POINT OF CARE TESTING [facility] Physicians Reference Laboratory [facility] CLIA# [id number] [address] [place] [address] * (ABNORMAL) POC GLUCOSE (10/29/2018 7:40 PM CDT) GLUCOSE POC 155(H) 74 - 99 mg/dL 10/29/2018 7:40 PM CDT [facility] LABORATORY SERVICES [facility] COMMENT, GLU POC Notified RN/MD 10/29/2018 7:40 PM CDT [facility] LABORATORY SERVICES - [facility] BOARD SETTER NAME POC ELIGIO MARTIN 10/29/2018 7:40 PM CDT [facility] LABORATORY SERVICES - [facility] Whole blood specimen (specimen) 10/29/2018 7:40 PM CDT 10/29/2018 7:55 PM CDT Kim Larsen DO POINT OF CARE TESTING [facility] Physicians Reference Laboratory SERVICES [facility] CLIA# [id number] [address] [facility] [address] [address] * (ABNORMAL) BASIC METABOLIC PANEL (10/29/2018 6:15 PM CDT) SODIUM 131(L) 136 - 145 mmol/L 10/29/2018 8:21 PM CDT [facility] LABORATORY SERVICES [facility] POTASSIUM 4.7 3.5 - 5.0 mmol/L 10/29/2018 8:21 PM T [facility] LABORATORY SERVICES [facility] Comment:Moderate hemolysis p resent. Can cause significant falsely elevated result. Redraw if indicated. CHLORIDE 107 98 - 107 mmol/L 10/29/2018 8:21 PM T [facility] LABORATORY SERVICES [facility] CO2 11(L) 22 - 29 mmol/L 10/29/2018 8:21 PM T [facility] LABORATORY SERVICES [facility] CALCIUM 6.9(L) 8.6 - 10.2 mg/dL 10/29/2018 8:21 PM CDT [facility] LABORATORY SERVICES [facility] BUN 5(L) 6 - 20 mg/dL 10/29/2018 8:21 PM CDT [facility] LABORATORY SERVICES [facility]. [facility] CREATININE 0.39(L) 0.51 - 0.95 mg/dL 10/29/2018 8:21 PM T [facility] LABORATORY SERVICES - [facility] GLUCOSE 150(H) 74 - 99 mg/dL 10/29/2018 8:21 PM CDT [facility] LABORATORY SERVICES [facility]. [facility] GFR >60 >=60 mL/min/1.7 3 sq meter 10/29/2018 8:21 PM CDT [facility] LABORATORY SERVICES - [facility] Comment: eGFR has not been validated [...] 3 sq meter 10/29/2018 8:21 PM CDT [facility] [facility] [employer] LABORATORY SERVICES - [facility] ANION GAP 13 8 - 16 mmol/L 10/29/2018 8:21 PM [facility] [employer] [facility] LABORATORY SERVICES [facility] Blood Venipuncture / Unknown 10/29/2018 6:15 PM CDT 10/29/2018 6:27 PM CDT Kim Larsen DO CHEMISTR Y ORDERABLES [facility] LABORATORY SERVICES [facility]# [id number] [address] [facility] [place] [address] * (ABNORMAL) BLOOD GAS ARTERIAL (10/29/2018 5:02 PM CDT) PH ARTERIAL 7.28(L) 7.35 - 7.45 10/29/2018 5:09 PM T [facility] LABORATORY SERVICES [facility] PCO2 ARTERIAL 42 35 - 48 mm Hg 10/29/2018 5:09 PM T [facility] [employer] [facility] LABORATORY SERVICES [facility] PO2 ARTERIAL 97 83 - 108 mm Hg 10/29/2018 5:09 PM T [facility] [employer] [facility] LABORATORY SERVICES [facility] HCO3 ARTERIAL 20(L) 22 - 26 mmol/L 10/29/2018 5:09 PM T [facility] LABORATORY SERVICES [facility] BASE EXCESS ABG -6.4(L) -2.0 - 3.0 mmol/L 10/29/2018 5:09 PM T [facility] LABORATORY SERVICES [facility] O2 SAT EST ARTERIAL 97 95 - 99 % 10/29/2018 5:09 PM CDT [facility] LABORATORY SERVICES [facility] P/F RATIO ARTERIAL 346 10/29/2018 5:09 PM CDT [facility] LABORATORY [facility] OXYGEN MODE 10/29/2018 5:09 PM CDT [facility] LABORATORY SERVICES [facility] Comment:Not given FIO2 28.0 21.0 - 100.0 % 10/29/2018 5:09 PM CDT [facility] LABORATORY SERVICES - [facility] Blood, arterial Arterial / Unknown 2018 5:02 PM CDT 10/29/2018 5:06 PM CDT Kim TIPTON LAURAJANES Performing Organization Address City/[facility]/ZIP Co de Phone Number [facility] CLIA# [id number] [address] [place] [address] * (ABNORMAL) POC GLUCOSE (10/29/2018 4:49 PM CDT) GLUCOSE POC 151(H) 74 - 99 mg/dL 10/29/2018 4:49 PM CDT [facility] LABORATORY [facility] BOARD SETTER NAME KATIA COSME 10/29/2018 4:49 PM CDT [facility] LABORATORY SERVICES [facility] Whole blood specimen (specimen) 10/29/2018 4:49 PM CDT 10/29/2018 5:20 PM CDT Kim Larsen DO POINT OF CARE TESTING [facility] Physicians Reference Laboratory [facility] CLIA# [id number] [address] [place] [address] * (ABNORMAL) POC GLUCOSE (10/29/2018 2:28 PM CDT) GLUCOSE POC 139(H) 74 - 99 mg/dL 10/29/2018 2:28 PM CDT [facility] LABORATORY [facility] BOARD SETTER NAME KATIA COSME 10/29/2018 2:28 PM CDT [facility] LABORATORY [facility] Whole blood specimen (specimen) 10/29/2018 2:28 PM CDT 10/29/2018 2:49 PM CDT Kim Larsen DO POINT OF CARE TESTING Performing Organization Address [facility]/ZIP Co de Phone Number [facility] Physicians Reference Laboratory [facility] CLIA# [id number] [address] [place] [address] * (ABNORMAL) POC GLUCOSE (10/29/2018 1:23 PM CDT) [facility] Signature GLUCOSE POC 126(H) 74 - 99 mg/dL 10/29/2018 1:23 PM CDT [facility] LABORATORY [facility] BOARD SETTER NAME POC LYNNETTE DELACRUZ 10/29/2018 1:23 PM CDT [facility] LABORATORY [facility] Whole blood specimen (specimen) 10/29/2018 1:23 PM CDT 10/29/2018 1:35 PM CDT Kim Larsen DO POINT OF CARE TESTING Performing Organization Address [facility]/ZIP Co de Phone Number [facility] CLIA# [id number] [address] [place] [address] * IR VENOUS NECK (10/29/2018 12:15 PM CDT) Anatomical Region Laterality Modality Neck X-Ray Angiograph y 10/29/2018 12:1 6 PM CDT Addenda Addendum by Laverne Willoughby MD on 11/12/2018 8:19 AM CDT FLUOROSCOPY TIME: 1.4 minutes Impressions 10/31/2018 8:19 AM CDT IMPRESSION: Ultrasound and fluoroscopic-guided placement of 2 separate subcutaneous power flow venous accesses as described above. DICTATION LOCATION: Location 1 - [facility] Narrative 10/31/2018 8:19 AM CDT ULTRASOUND AND [...] antibiotics were given pre-operatively FLUOROSCOPY TIME: Dose 20mGy/591.75fDst7. PROCEDURE: The right ??upper chest and neck were prepped and draped in a sterile fashion. Under direct ultrasound guidance the ??right ??internal jugular vein was punctured and a guidewire was advanced centrally. A 4 Jordanian micropuncture dilator was advanced over a guidewire. More laterally, and under ultrasound guidance, the right internal jugular vein was punctured and a guidewire was advanced centrally. A 4 Jordanian micropuncture dilator was then advanced over the [...] subcutaneous pocket was formed. 2 separate 9.6 Jordanian catheters were then tunneled subcutaneously from the [...] antibiotics were given pre-operatively FLUOROSCOPY TIME: Dose 20mGy/591.98gJpn6. PROCEDURE: The right upper chest and neck were prepped and draped in a sterile fashion. Under direct ultrasound guidance the right internal jugular vein was punctured and a guidewire was advanced centrally. A 4 Jordanian micropuncture dilator was advanced over a guidewire. More laterally, and under ultrasound guidance, the right internal jugular vein was punctured and a guidewire was advanced centrally. A 4 Jordanian micropuncture dilator was then advanced over the [...] subcutaneous pocket was formed. 2 separate 9.6 Jordanian catheters were then tunneled subcutaneously from the [...] described above. DICTATION LOCATION: Location 1 - [facility] Laverne Fartun CARNEY IR ORDERABLES * (ABNORMAL) POC GLUCOSE (10/29/2018 12:04 PM T) GLUCOSE POC 165(H) 74 - 99 mg/dL 10/29/2018 12:04 PM CDT [facility] BOARD SETTER NAME POC KATIA LIMA 10/29/2018 12:04 PM [facility] Whole blood specimen (specimen) 10/29/2018 12:04 PM CDT 10/29/2018 12:41 PM CDT Kim Larsen DO POINT OF CARE TESTING [facility] LABORATORY [facility] CLIA# [id number] [address] [place] [address] * (ABNORMAL) POC GLUCOSE (10/29/2018 10:56 AM CDT) GLUCOSE POC 150(H) 74 - 99 mg/dL 10/29/2018 10:56 AM CDT [facility] LABORATORY SERVICES [facility] BOARD SETTER NAME KATIA COSME 10/29/2018 10:56 AM CDT [facility] Whole blood specimen (specimen) 10/29/2018 10:56 AM CDT 10/29/2018 12:41 PM CDT Kim Larsen DO POINT OF CARE TESTING Performing Organization Address [facility]/ZIP Co de Phone Number [facility] Physicians Reference Laboratory [facility] CLIA# [id number] [address] [place] [address] * (ABNORMAL) POC GLUCOSE (10/29/2018 10:03 AM CDT) GLUCOSE POC 119(H) 74 - 99 mg/dL 10/29/2018 10:03 AM CDT [facility] LABORATORY SERVICES [facility] BOARD SETTER NAME KATIA COSME 10/29/2018 10:03 AM CDT [facility] LABORATORY SERVICES [facility] Whole blood specimen (specimen) 10/29/2018 10:03 AM CDT 10/29/2018 10:17 AM CDT Kim Larsen DO POINT OF CARE TESTING [facility] LABORATORY [facility] CLIA# [id number] [address] [place] [address] * (ABNORMAL) POC GLUCOSE (10/29/2018 9:05 AM CDT) GLUCOSE POC 133(H) 74 - 99 mg/dL 10/29/2018 9:05 AM CDT [facility] LABORATORY [facility] BOARD SETTER NAME LYNNETTE GARCIA 10/29/2018 9:05 AM CDT [facility] LABORATORY SERVICES [facility] Whole blood specimen (specimen) 10/29/2018 9:05 AM CDT 10/29/2018 9:31 AM CDT Kim Larsen DO POINT OF CARE TESTING Performing Organization Address City/[facility]/ZIP Co de Phone Number [facility] Physicians Reference Laboratory [facility] CLIA# [id number] [address] [place] [address] * (ABNORMAL) POC GLUCOSE (10/29/2018 8:02 AM CDT) GLUCOSE POC 124(H) 74 - 99 mg/dL 10/29/2018 8:02 AM CDT [facility] LABORATORY [facility] BOARD SETTER NAME LYNNETTE GARCIA 10/29/2018 8:02 AM CDT [facility] LABORATORY SERVICES [facility] Whole blood specimen (specimen) 10/29/2018 8:02 AM CDT 10/29/2018 8:29 AM CDT Kim Larsen DO POINT OF CARE TESTING [facility] Physicians Reference Laboratory [facility] CLIA# [id number] [address] [place] [address] * (ABNORMAL) POC GLUCOSE (10/29/2018 6:56 AM CDT) GLUCOSE POC 102(H) 74 - 99 mg/dL 10/29/2018 6:56 AM CDT [facility] LABORATORY SERVICES [facility] COMMENT, GLU POC Notified RN/MD 10/29/2018 6:56 AM CDT [facility] LABORATORY SERVICES [facility] BOARD SETTER NAME JESSICA JACKSON 10/29/2018 6:56 AM CDT [facility] LABORATORY SERVICES [facility] Whole blood specimen (specimen) 10/29/2018 6:56 AM CDT 10/29/2018 7:10 AM CDT Angie Louis MD POINT OF CARE TESTIN G Performing Organization Address [facility] de Phone Number [facility] CLCO# [id number] [address] [place] [address] * POC GLUCOSE (10/29/2018 5:55 AM CDT) GLUCOSE POC 96 74 - 99 mg/dL 10/29/2018 5:55 AM CDT [facility] LABORATORY [facility] COMMENT, GLU POC Notified RN/MD 10/29/2018 5:55 AM CDT [facility] Physicians Reference Laboratory [facility] BOARD SETTER NAME POC JESSICA REGALADO 10/29/2018 5:55 AM CDT [facility] Physicians Reference Laboratory [facility] Whole blood specimen (specimen) 10/29/2018 5:55 AM CDT 10/29/2018 6:11 AM CDT Angie Louis MD POINT OF CARE TESTIN G Performing Organization Address [facility] de Phone Number [facility] Physicians Reference Laboratory [facility]# [id number] [facility] [place] [address] * (ABNORMAL) TRIGLYCERIDE (10/29/2018 5:15 AM CDT) TRIGLYCERIDE >4,425(H) <150 mg/dL 10/29/2018 6:33 AM CDT [facility] Physicians Reference Laboratory [facility] Blood Venipuncture / Unknown 10/29/2018 5:15 AM CDT 10/29/2018 5:30 AM CDT Narrative [facility] LABORATORY [facility] - 10/29/2018 6:33 AM CDT TRIGLYCERIDES ? mg/dL Normal ?< 150 Borderline High ?150 - 199 High ? 200 - 499 Very High ? >= 500 Based on AHA/NCEP Guidelines. Angie Louis MD CHEMISTRY ORDERABLES [facility] [employer] [facility] LABORATORY SERVICES - [facility] CLIA# [id number] [address] [facility] [place] [place] [address] * (ABNORMAL) BASIC METABOLIC PANEL (10/29/2018 5:15 AM CDT) SODIUM 134(L) 136 - 145 mmol/L 10/29/2018 6:54 AM CDT [facility] LABORATORY SERVICES - [facility] POTASSIUM 3.6 3.5 - 5.0 mmol/L 10/29/2018 6:54 AM [facility] SERVICES - [facility] CHLORIDE 100 98 - 107 mmol/L 10/29/2018 6:54 AM T [facility] SERVICES - . [facility] CO2 23 22 - 29 mmol/L 10/29/2018 6:54 AM T [facility] LABORATORY SERVICES - [facility] CALCIUM 8.1(L) 8.6 - 10.2 mg/dL 10/29/2018 6:54 AM T [facility] LABORATORY SERVICES - [facility] Comment:Significant change f rom prior result, correlate clinically and redraw if necessary. BUN 7 6 - 20 mg/dL 10/29/2018 6:54 AM T [facility] SERVICES [facility] CREATININE 0.55 0.51 - 0.95 mg/dL 10/29/2018 6:54 AM CDT [facility] LABORATORY SERVICES - . [facility] GLUCOSE 84 74 - 99 mg/dL 10/29/2018 6:54 AM T [facility] LABORATORY SERVICES - [facility] GFR >60 >=60 mL/min/1.7 3 sq meter 10/29/2018 6:54 AM [employer] [facility] LABORATORY SERVICES - [facility] Comment: eGFR has not been validated [...] 3 sq meter 10/29/2018 6:54 AM CDT [facility] LABORATORY SERVICES [facility] ANION GAP 11 8 - 16 mmol/L 10/29/2018 6:54 AM T [facility] LABORATORY [facility] Blood Venipuncture / Unknown 10/29/2018 5:15 AM CDT 10/29/2018 5:30 AM CDT Narrative [facility] LABORATORY SERVICES [facility] - 10/29/2018 6:54 AM CDT Grossly lipemic. Cleared of chylomicrons. Angie Louis MD CHEMISTRY ORDERABLES [facility] Physicians Reference Laboratory [facility] [id number] [address] [place] [address] * POC GLUCOSE (10/29/2018 4:59 AM CDT) [facility] GLUCOSE POC 77 74 - 99 mg/dL 10/29/2018 4:59 AM CDT [facility] LABORATORY SERVICES [facility] COMMENT, GLU POC Notified RN/MD 10/29/2018 4:59 AM CDT [facility] LABORATORY SERVICES [facility] BOARD SETTER NAME POC BRANDON RGEALADON 10/29/2018 4:59 AM CDT [facility] LABORATORY [facility] Whole blood specimen (specimen) 10/29/2018 4:59 AM CDT 10/29/2018 5:28 AM CDT Angie Louis MD POINT OF CARE TESTIN G Performing Organization Address City/[facility]/ZIP Co de Phone Number [facility] Physicians Reference Laboratory [facility] CLIA# [id number] [address] [place] [address] * POC GLUCOSE (10/29/2018 3:50 AM CDT) GLUCOSE POC 81 74 - 99 mg/dL 10/29/2018 3:50 AM CDT [facility] LABORATORY SERVICES - [facility] BOARD SETTER NAME JESSICA JACKSON 10/29/2018 3:50 AM CDT [facility] - [facility] Whole blood specimen (specimen) 10/29/2018 3:50 AM CDT 10/29/2018 4:01 AM CDT Angie Louis MD POINT OF CARE TESTIN G [facility] LABORATORY [facility] CLIA# [id number] [address] [place] [address] * POC GLUCOSE (10/29/2018 2:54 AM CDT) GLUCOSE POC 78 74 - 99 mg/dL 10/29/2018 2:54 AM CDT [facility] LABORATORY SERVICES - [facility] COMMENT, GLU POC Notified RN/MD 10/29/2018 2:54 AM CDT [facility] LABORATORY SERVICES - [facility] BOARD SETTER NAME JESSICA JACKSON 10/29/2018 2:54 AM CDT [facility] Whole blood specimen (specimen) 10/29/2018 2:54 AM CDT 10/29/2018 3:18 AM CDT Angie Louis MD POINT OF CARE TESTIN G [facility] LABORATORY [facility] CLIA# [id number] [address] [place] [address] * POC GLUCOSE (10/29/2018 1:52 AM CDT) GLUCOSE POC 92 74 - 99 mg/dL 10/29/2018 1:52 AM CDT [facility] LABORATORY SERVICES - [facility] BOARD SETTER NAME JESSICA JACKSON 10/29/2018 1:52 AM CDT [facility] LAB[facility]ATORY SERVICES [facility] Whole blood specimen (specimen) 10/29/2018 1:52 AM CDT 10/29/2018 2:13 AM CDT Angie Louis MD POINT OF CARE TESTIN G Performing Organization Address [facility] Co de Phone Number [facility] LABORATORY [facility] CLIA# [id number] [address] [place] [address] * (ABNORMAL) POC GLUCOSE (10/29/2018 12:43 AM CDT) GLUCOSE POC 116(H) 74 - 99 mg/dL 10/29/2018 12:43 AM CDT [facility] LABORATORY SERVICES [facility] COMMENT, GLU POC Notified RN/MD 10/29/2018 12:43 AM CDT [facility] LABORATORY SERVICES [facility] BOARD SETTER NAME JESSICA JACKSON 10/29/2018 12:43 AM CDT [facility] LABORATORY SERVICES [facility] Whole blood specimen (specimen) 10/29/2018 12:43 AM CDT 10/29/2018 12:59 AM CDT Angie Louis MD POINT OF CARE TESTIN G Performing Organization Address [facility] de Phone Number [facility] Physicians Reference Laboratory [facility] [id number] [address] [place] [address] * (ABNORMAL) POC GLUCOSE (10/29/2018 12:12 AM CDT) GLUCOSE POC 130(H) 74 - 99 mg/dL 10/29/2018 12:12 AM CDT [facility] COMMENT, GLU POC Notified RN/MD 10/29/2018 12:12 AM CDT [facility] BOARD SETTER NAME JESSICA JACKSON 10/29/2018 12:12 AM CDT [facility] Whole blood specimen (specimen) 10/29/2018 12:12 AM CDT 10/29/2018 12:26 AM CDT Angie Louis MD POINT OF CARE TESTIN G Performing Organization Address [facility] Co de Phone Number [facility]# [id number] [address] [place] [address] * (ABNORMAL) POC GLUCOSE (10/28/2018 11:42 PM CDT) GLUCOSE POC 116(H) 74 - 99 mg/dL 10/28/2018 11:42 PM CDT [facility]AT[facility] COMMENT, GLU POC Notified RN/MD 10/28/2018 11:42 PM CDT [facility] LABORATORY [facility] BOARD SETTER NAME ELIGIO JOHNSON 10/28/2018 11:42 PM CDT [facility]AT[facility] Whole blood specimen (specimen) 10/28/2018 11:42 PM CDT 10/28/2018 11:54 PM CDT Angie Louis MD POINT OF CARE TESTJERONIMO Serrano Performing Organization Address [facility] [facility]/ZIP Co de Phone Number [facility] Physicians Reference Laboratory [facility]# [id number] [address] [place] [address] * (ABNORMAL) POC GLUCOSE (10/28/2018 11:06 PM CDT) GLUCOSE POC 108(H) 74 - 99 mg/dL 10/28/2018 11:06 PM CDT [facility] LABORATORY SERVICES [facility] COMMENT, GLU POC Notified RN/MD 10/28/2018 11:06 PM CDT [facility] LABORATORY SERVICES [facility] BOARD SETTER NAME ELIGIO JOHNSON 10/28/2018 11:06 PM CDT [facility] LABORATORY SERVICES [facility] Whole blood specimen (specimen) 10/28/2018 11:06 PM CDT 10/28/2018 11:20 PM CDT Angie Louis MD POINT OF CARE TESTIN G Performing Organization Address [facility]/ZIP Co de Phone Number [facility] Physicians Reference Laboratory [facility]# [id number] [address] [place] [address] * (ABNORMAL) POC GLUCOSE (10/28/2018 9:58 PM CDT) GLUCOSE POC 145(H) 74 - 99 mg/dL 10/28/2018 9:58 PM CDT [facility] COMMENT, GLU POC Notified RN/ 10/28/2018 9:58 PM CDT [facility] LABORATORY SERVICES [facility] BOARD SETTER NAME POC JESSICA REGALADO 10/28/2018 9:58 PM CDT [facility] Whole blood specimen (specimen) 10/28/2018 9:58 PM CDT 10/28/2018 10:19 PM CDT Angie Louis MD POINT OF CARE TESTJERONIMO G Performing Organization Address [facility]/ZIP Co de Phone Number [facility] Physicians Reference Laboratory [facility]# [id number] [address] [place] [address] * (ABNORMAL) POC GLUCOSE (10/28/2018 8:56 PM CDT) GLUCOSE POC 184(H) 74 - 99 mg/dL 10/28/2018 8:56 PM CDT [facility] COMMENT, GLU POC Notified RN/MD 10/28/2018 8:56 PM CDT [facility] LABORATORY SERVICES [facility] BOARD SETTER NAME POC JESSICA REGALADO 10/28/2018 8:56 PM CDT [facility] Whole blood specimen (specimen) 10/28/2018 8:56 PM CDT 10/28/2018 9:30 PM CDT Angie Louis MD POINT OF CARE TESTIN G [facility] LABORATORY [facility]# [id number] [address] [place] [address] * (ABNORMAL) POC GLUCOSE (10/28/2018 7:55 PM CDT) GLUCOSE POC 228(H) 74 - 99 mg/dL 10/28/2018 7:55 PM CDT [facility] LABORATORY SERVICES [facility] COMMENT, GLU POC Notified RN/ 10/28/2018 7:55 PM CDT [facility] LABORATORY SERVICES [facility] BOARD SETTER NAME POC JESSICA REGALADO 10/28/2018 7:55 PM CDT [facility] LABORATORY SERVICES [facility] Whole blood specimen (specimen) 10/28/2018 7:55 PM CDT 10/28/2018 8:20 PM CDT Angie Louis MD POINT OF CARE TESTIN G Performing Organization Address [facility] Co de Phone Number [facility] Physicians Reference Laboratory [facility]# [id number] [address] [place] [address] * (ABNORMAL) POC GLUCOSE (10/28/2018 5:20 PM CDT) [facility] GLUCOSE POC 305(H) 74 - 99 mg/dL 10/28/2018 5:20 PM CDT [facility] LABORATORY [facility] COMMENT, GLU POC Repeated Glucose 10/28/2018 5:20 PM CDT [facility] LABORATORY SERVICES [facility] COMMENT 2, GLU POC Notified RN/ 10/28/2018 5:20 PM CDT [facility] LABORATORY SERVICES [facility] BOARD SETTER NAME POC HANS BEE 10/28/2018 5:20 PM CDT [facility] LABORATORY SERVICES [facility] Whole blood specimen (specimen) 10/28/2018 5:20 PM CDT 10/28/2018 5:32 PM CDT Phoenix Livingston MD POINT OF CARE TESTIN G Performing Organization Address City/[facility]/ZIP Co de Phone Number [facility] [id number] [address] [place] [address] * EKG 12-LEAD (10/28/2018 5:14 PM CDT) 10/28/2018 5:14 PM CDT Narrative INTERFACE SYSTEM - 10/28/2018 6:45 PM CDT ? Stationary ECG Study ? [facility] ? Test Date: ?10/28/2018 5:14 PM Pat Name: ? CASANDRA DOSS ?Department: ?? 38 ?Room: ? 4228 Gender: ? F ?Magazine Feeder: ?? conchita : ?1975 ? Requested By: PHOENIX LIVINGSTON A Order Number: [id number] ?Reading MD: ?? Eligio Wyman ? Measurements Intervals ?[place] ? Rate: ? 89 ? P: ?49 CO: ? 164 ?QRS: ?50 QRSD: ? 88 ? T: ?-16 QT: ? 365 ? QTc: ?445 ? Interpretive Statements ? Sinus rhythm Borderline T abnormalities, diffuse leads Electronically Signed On 10-28-2018 18:45:08 CDT by Eligio Wyman Procedure Note Eligio Wyman MD - 06/14/2021 Stationary [facility] Test Date: 10/28/2018 5:14 PM Pat Name: CASANDRA DOSS Department: 38 Room: 4228 Gender: F Magazine Feeder: conchita : 1975 Requested By: PHOENIX Chavez Order Number: [id number] Nato MD: Eligio Wyman Measurements Intervals [place] Rate: 89 P: 49 CO: 164 QRS: 50 QRSD: 88 T: -16 QT: 365 QTc: 445 Interpretive Statements Sinus rhythm Borderline T abnormalities, diffuse leads Electronically Signed On 10-28-2018 18:45:08 CDT by Eligio Wyman Phoenix Livingston MD ECG ORDERABLES INTERFACE SYSTEM Refer to clinic/hospital department * (ABNORMAL) URINALYSIS WITH REFLEX MICROSCOPIC (10/28/2018 4:00 PM CDT) COLOR UA Yellow Pale to Dark Yellow 10/28/2018 4:39 PM [facility] LABORATORY SERVICES - [facility] CLARITY UA Slightly Cloudy(A) Clear 10/28/2018 4:39 PM [facility] LABORATORY SERVICES - [facility] SPECIFIC GRAVITY UA 1.030 1.003 - 1.035 10/28/2018 4:39 PM [facility] LABORATORY SERVICES - [facility] PH UA 6.0 5.0 - 8.0 10/28/2018 4:39 PM [facility] LABORATORY SERVICES - [facility] LEUKOCYTE ESTERASE UA Negative Negative 10/28/2018 4:39 PM [facility] LABORATORY SERVICES - [facility] NITRITE UA Negative Negative 10/28/2018 4:39 PM [facility]ATORY SERVICES - [facility] PROTEIN UA Negative Negative 10/28/2018 4:39 PM [facility] LABORATORY SERVICES - [facility] GLUCOSE UA 3+(A) Negative 10/28/2018 4:39 PM [facility] LABORATORY SERVICES - [facility] KETONES UA Trace(A) Negative 10/28/2018 4:39 PM CDT [facility]ORATORY SERVICES - [facility] UROBILINOGEN UA Normal <2.0 mg/dL 9 4:39 PM T [facility] LABORATORY SERVICES - [facility] BILIRUBIN UA Negative Negative 10/28/2018 4:39 PM [facility]ATORY SERVICES - [facility] BLOOD UA Negative Negative 10/28/2018 4:39 PM [facility] LABORATORY SERVICES - [facility] WBC UA 3-5(A) 0 - 2 /hpf 10/28/2018 4:39 PM CDT [facility]ATORY SERVICES - [facility] RBC UA 0-2 0 - 2 /hpf 10/28/2018 4:39 PM [facility] LABORATORY SERVICES - [facility] BACTERIA UA 1+(A) Negative /hpf 10/28/2018 4:39 PM CDT [facility] LABORATORY SERVICES - [facility] EPITHELIAL CELLS, URINE 11-25(A) 0 - 5 /hpf 10/28/2018 4:39 PM [facility] LABORATORY SERVICES - [facility] Urine URINE SPECIMEN OBTAINED BY CLEAN CATCH PROCEDURE / Unknown Collection / Unknown 10/28/2018 4:00 PM CDT 10/28/2018 4:13 PM CDT Phoenix Livingston MD URINE ORDERABLES [facility] LABORATORY SERVICES - [facility] CLIA# [id number] [address] [place] [address] * MANUAL DIFFERENTIAL (10/28/2018 3:56 PM CDT) SEGMENTED NEUTROPHILS 65 % 10/28/2018 5:48 PM CDT [facility] LABORATORY SERVICES - [facility] LYMPHOCYTES RELATIVE 26 % 10/28/2018 5:48 PM CDT [facility] LAB[facility]ATORY SERVICES - [facility] ATYPICAL LYMPHOCYTES RELATIVE 3 0 - 5 % 10/28/2018 5:48 PM CDT [facility] - [facility] MONOCYTES RELATIVE 5 % 10/28/2018 5:48 PM CDT [facility] LABORATORY SERVICES - [facility] EOSINOPHILS RELATIVE 1 % 10/28/2018 5:48 PM CDT [facility] LAB[facility]ATORY SERVICES - [facility] NEUTROPHILS ABSOLUTE COUNT 6.87 1.90 - 7.00 K/uL 10/28/2018 5:48 PM CDT [facility] LABORATORY SERVICES - [facility] LYMPHOCYTES ABSOLUTE 2.77 0.70 - 4.50 K/uL 10/28/2018 5:48 PM CDT [facility] LAB[facility]ATORY SERVICES - [facility] MONOCYTES ABSOLUTE 0.48 0.10 - 1.30 K/uL 10/28/2018 5:48 PM CDT [facility]ATORY SERVICES - [facility] EOSINOPHILS ABSOLUTE 0.10 0.00 - 0.70 K/uL 10/28/2018 5:48 PM CDT [facility] LAB[facility]ATORY SERVICES - [facility] TOTAL CELLS COUNTED IN DIFF 110 10/28/2018 5:48 PM CDT [facility]ATORY SERVICES - [facility] RBC MORPHOLOGY abnormal 10/28/2018 5:48 PM CDT [facility]ATORY SERVICES - [facility] PLATELET EST. Consistent w Count 10/28/2018 5:48 PM CDT [facility] - [facility] ANISOCYTOSIS 1+ /hpf 10/28/2018 5:48 PM CDT [facility] - [facility] MICROCYTES 1+ /hpf 10/28/2018 5:48 PM CDT [facility] Blood Venipuncture / Unknown 10/28/2018 3:56 PM CDT 10/28/2018 4:02 PM CDT Phoenix Livingston MD HEMATOLOGY ORDERABLE S COM [facility] LABORATORY SERVICES [facility] CLIA# [id number] [address] [place] [address] * LIPASE (10/28/2018 3:56 PM CDT) Pathologist [facility] LIPASE 51 13 - 60 U/L 10/28/2018 6:09 PM CDT [facility] LABORATORY SERVICES [facility] Blood Venipuncture / Unknown 10/28/2018 3:56 PM CDT 10/28/2018 4:30 PM CDT Phoenix Livingston MD CHEMISTRY ORDERABLES Performing Organization Address City/[facility]/ZIP Co de Phone Number [facility] LABORATORY SERVICES [facility] CLIA# [id number] [address] [place] [address] * (ABNORMAL) COMPREHENSIVE METABOLIC PANEL (10/28/2018 3:56 PM CDT) Pathologist [facility] SODIUM 130(L) 136 - 145 mmol/L 10/28/2018 6:44 PM CDT [facility] LABORATORY SERVICES [facility] POTASSIUM 4.1 3.5 - 5.0 mmol/L 10/28/2018 6:44 PM CDT [facility] LABORATORY SERVICES - [facility] Comment:Slightly hemolyzed. Result may be falsely elevated. CHLORIDE 91(L) 98 - 107 mmol/L 10/28/2018 6:44 PM CDT [facility] LABORATORY SERVICES - [facility] CO2 22 22 - 29 mmol/L 10/28/2018 6:44 PM CDT [facility] LABORATORY SERVICES - [facility] CALCIUM 9.7 8.6 - 10.2 mg/dL 10/28/2018 6:44 PM CDT [facility] LABORATORY SERVICES - [facility] BUN 7 6 - 20 mg/dL 10/28/2018 6:44 PM CDT [facility] LABORATORY SERVICES - [facility] CREATININE 0.55 0.51 - 0.95 mg/dL 10/28/2018 6:44 PM CDT [facility] LABORATORY SERVICES - [facility] GLUCOSE 388(H) 74 - 99 mg/dL 10/28/2018 6:44 PM [facility] TOTAL PROTEIN 7.3 6.7 - 8.6 g/dL 10/28/2018 6:44 PM [facility] LABORATORY SERVICES - . [facility] ALBUMIN 4.3 3.5 - 5.2 g/dL 10/28/2018 6:44 PM [facility] LABORATORY SERVICES - [facility] BILIRUBIN TOTAL 0.2(L) 0.3 - 1.2 mg/dL 10/28/2018 6:44 PM [facility] LABORATORY SERVICES - [facility] ALKALINE PHOSPHATASE 101 35 - 104 U/L 10/28/2018 6:44 PM [facility]ATORY SERVICES - [facility] AST 16 <33 U/L 10/28/2018 6:44 PM [facility] LABORATORY SERVICES [facility] Comment:Hemolysis present. R esult may be falsely elevated. ALT 16 <34 U/L 10/28/2018 6:44 PM [facility] Physicians Reference Laboratory [facility] GFR >60 >=60 mL/min/1.7 3 sq meter 10/28/2018 6:44 PM [facility] LABORATORY SERVICES - [facility] Comment: eGFR has not been validated [...] mL/min/1.7 3 sq meter 10/28/2018 6:44 PM [facility] LABORATORY SERVICES [facility] ANION GAP 17(H) 8 - 16 mmol/L 10/28/2018 6:44 PM [facility] LABORATORY [facility] Blood Venipuncture / Unknown 10/28/2018 3:56 PM CDT 10/28/2018 4:30 PM CDT Narrative [facility] LABORATORY SERVICES - [facility] - 10/28/2018 6:44 PM CDT Samples containing indocyanine green cause interferences on Total and/or Direct Bilirubin and must not be measured. Phoenix Livingston MD CHEMISTRY ORDERABLES [facility] LABORATORY SERVICES [facility] CLIA# [id number] [address] [place] [address] * (ABNORMAL) CBC WITH DIFFERENTIAL (10/28/2018 3:56 PM CDT) Pathologist [facility] WBC 10.5(H) 4.0 - 9.8 K/uL 10/28/2018 4:25 PM CDT [facility] LABORATORY [facility] RBC 4.34 3.90 - 4.90 M/uL 10/28/2018 4:25 PM CDT [facility] LABORATORY [facility] HEMOGLOBIN 13.9 11.8 - 14.8 g/dL 10/28/2018 4:25 PM CDT [facility] LABORATORY SERVICES - [facility] Comment: Sample warmed to 37C due to possible cold agglutinins. Results corrected for elevated lipids. HEMATOCRIT 40.0 35.5 - 44.0 % 10/28/2018 4:25 PM CDT [facility] LABORATORY SERVICES - [facility] MCV 92.2 82.0 - 99.0 fL 10/28/2018 4:25 PM CDT [facility] LABORATORY [facility] MCH 32.0 27.2 - 32.6 pg 10/28/2018 4:25 PM CDT [facility] LABORATORY [facility] MCHC 34.8 31.5 - 35.5 g/dL 10/28/2018 4:25 PM CDT [facility] LABORATORY SERVICES - [facility] RDW 15.4(H) 11.5 - 14.5 % 10/28/2018 4:25 PM CDT [facility] LABORATORY SERVICES - [facility] RDW-STDEV 49.8(H) 37.1 - 48.7 fL 10/28/2018 4:25 PM CDT [facility] LABORATORY SERVICES - [facility] PLATELETS 338 140 - 350 K/uL 10/28/2018 4:25 PM CDT [facility] LABORATORY SERVICES - [facility] MPV 9.4 9.3 - 12.4 fL 10/28/2018 4:25 PM CDT [facility] LABORATORY SERVICES [facility] Blood Venipuncture / Unknown 10/28/2018 3:56 PM CDT 10/28/2018 4:02 PM CDT Phoenix Livingston MD HEMATOLOGY ORDERABLE S [facility] LABORATORY SERVICES [facility] CLIA# [id number] [address] [facility] [place] [address] documented in this encounter Visit Diagnoses Diagnosis [...] Given 10/29/2018 5:24 PM CDT 650 mg ubsaqlz-jjbige-ciuwrdek DR MAGUIRE 12 60-12-38 per capsule 2 [...] Given 10/28/2018 8:06 PM CDT 80 mg ocoggpbznf-ujijcti-bcffecmyrd ine (CEPACOL) lozenge 1 Each 1 Each, [...] 10/29/2018 5:20 PM CDT 160 mg Fish Oil-Kittanning-3 Fatty Acids 360-1,200 mg capsule 2 Capsule [...] CDT. Scheduled Medication Order 10/29/2018 10/30/2018 10/31/2018 vylazvx-ohkyvq-wzzbhkx e CREON 12) 76-12-69 per capsule 2 Capsule 2 Capsule, Oral, [...] Humaira Regalado RN) 0835 (Given - Provider: aYmil Del Toro RN)1346 (Given - Provider: Yamil [...] - Provider: Yamil Del Toro RN) Fish Oil-Kittanning-3 Fatty Acids 360-1,200 mg capsule 2 Capsule [...] RN)2252 (Given - Provider: Humaira Regalado RN) kilfujyyjq-ueltafy-rvx ylpyridine (CEPACOL) lozenge 1 Each 1 Each, [...] RN) documented in this encounter Care Teams Security Systems Sales Representative Relationship Specialty Start Date End Date Guerrero Middleton PA-C PCP - General Physician Director Public Service 02/13/18 documented as of this encounter
--- OUTSIDE RECORDS SUMMARY | 2024-05-03 21:56 | XMS_ITS | Encounter Summary ---
Author Organization [facility] Address [address] [place] [address] Care Team Providers Care Oil Boiler Name Role Phone Guerrero Middleton PA-C Primary Care Provide r Encounter Details Date Type Department Care Team (Late st Contact Info) Description 10/23/2018 Orders Only [facility] Heart and Vascular At [facility] [address] [place] [address] Marlys Mayer MD [address] [facility] [address] [place] [address] Hypertriglyceridemia Social History Tobacco Use [...] [facility] Heart [facility] Vascular - [place] [address] [place] [address] Marlys Mayer MD [address] [place] [address] documented as of this encounter Procedures Procedure Name Priority Date/Time Associated Diagnosis Comments LIPID PANEL Routine 10/22/2018 Hypertriglyceridemia documented in this encounter Results * LIPID PANEL (10/22/2018) Blood Marlys Mayer MD CHEMISTRY ORDERABLES [facility] LABORATORY SERVICES [facility]# [id number] [address] [facility] [address] [address] documented in this encounter Visit Diagnoses Diagnosis Hypertriglyceridemia Pure hyperglyceridemia documented in this encounter Care Teams Oil Boiler Relationship Specialty Start Date End Date Guerrero Middleton PA-C PCP - General Physician Tax Auditor 02/13/18 documented as of this encounter
--- OUTSIDE RECORDS SUMMARY | 2024-05-03 21:56 | XMS_ITS | Encounter Summary ---
Author Organization [facility] Address [address] [place] [address] Care Team Providers Care Vendor Specialist Name Role Phone Guerrero Middleton PA-C Primary Care Provide r Reason for Visit * Reason Onset Date Comments Needs Orders Written 12/11/2018 Encounter Details Date Type Department Care Team (Late st Contact Info) Description 12/11/2018 Telephone [facility] Endocrinology [address] [place] [address] Blake Rudd MD NO ADDRESS [...] [place] [facility] - [place] [employer] [facility] [address] [place] [address] Marlys Mayer MD [address] [place] [address] documented as of this encounter Visit Diagnoses Diagnosis Hypertriglyceridemia- Primary Pure hyperglyceridemia documented in this encounter Care Teams Vendor Specialist Relationship Specialty Start Date End Date Guerrero Middleton PA-C PCP - General Physician Change Booth Attendant 02/13/18 documented as of this encounter
--- OUTSIDE RECORDS SUMMARY | 2024-05-03 21:56 | XMS_ITS | Encounter Summary ---
Author Organization [facility] Address [address] [place] [address] Care Team Providers Care Manager Crisis Name Role Phone Guerrero Middleton PA-C Primary Care Provide r Reason for Visit * Reason Onset Date Comments pt in ER 10/28/2018 Encounter Details Date Type Department Care Team (Late st Contact Info) Description 10/28/2018 Telephone [facility] Heart and Vascular At [facility] [address] [place] [phone] Marlys Mayer MD [address] [place] [address] pt in ER Social History [...] CDT Returned pt call, she is in [facility] ER. States abdominal pain was bad and Dr. Rudd told her to go to ER. Pt has seen Dr. Arteaga who has her on the schedule for a port in the morning and plasmapheresis after that. Emailed Yadira OLGUIN with above for Dr. Mayer documented in this encounter Plan of Treatment Upcoming Encounters Date Type Department Care Team (Late st Contact Info) Description 09/14/2024 3:00 PM CDT Office Visit [facility] Heart and Vascular - [place] [address] [place] [phone] Marlys Mayer MD [address] [place] [address] documented as of this encounter Visit Diagnoses Not on filedocumented in this encounter Care Teams Manager Crisis Relationship Specialty Start Date End Date Guerrero Middletno PA-C PCP - General Physician Academic Counselor 02/13/18 documented as of this encounter
--- OUTSIDE RECORDS SUMMARY | 2024-05-03 21:56 | XMS_ITS | Encounter Summary ---
Author Organization [facility] Address [address] [place] [address] Care Team Providers Care Quenching Car Operator Name Role Phone Guerrero Middleton PA-C [...] Specialty Diagnoses / Procedures Referred By Tequila bomwan Referred To Contact Critical Care Medicine [facility] Transitional Care Unit [address] [place] [address] Referral ID Status Reason Start Date Expiration Date Visits Re quested Visits Authorized [id number] 1 1 Encounter Details Date Type Department Care Team (Latest Contact Info) Description 09/28/2018 6:09 PM CDT - 10/02/2018 4:45 PM CDT Hospital Encounter [facility] Transitional Care Unit [address] [place] [address] Abhay Lan MD [address] [place] [address] Albert Silveira MD [address] [place] [address] Puja Pagan MD [address] [place] [address] Leonel Valadez, DO [address] [place] [address] Chylomicronemia syndrome Discharge Disposition: Home [...] MD - 10/02/2018 11:36 AM CDT [facility] Adult Discharge Summary Casandra Doss 42 y.o. female 1975 CSN: [id number] Date of Admission: 09/28/2018 Date of Discharge: [...] and at bedtime. Refills: 0 Generic drug: wtvaaas-nllxon-txcpmyxe DR dicyclomine 10 mg capsule Commonly known [...] 7 AM- 5 PM: Page via the [facility] E-List 5 PM-7 AM: Call the application technician human resource intern at [employer] phone [phone]. If no response please page the senior resident at [phone] ?? Saturday and Saturday: 7 AM-12 PM: Page via the [facility] E-List 12 PM-7 AM: Call the application technician human resource intern at [employer] phone [phone]. If no response please page the senior resident at [phone] ?? If no response to the above steps in 10 minutes, please page the attending physician. Associated attestation - Leonel Valadez DO - 10/02/2018 2:32 PM CDT [facility] Adult Hospitalist Attending Note Patient seen and [...] discharge process today. Leonel Valadez DO [facility] Adult Hospitalist For discharge questions please contact my office at . documented in this encounter Discharge Instructions * Discharge Instructions* Leonardo Dhaliwal MD - 10/02/2018 11:49 AM CDT Your discharging physician is Leonel Valadez DO and may be reached at [phone] for any questions or concerns until you see your doctor. FOLLOW-UP Follow up with Guerrero Middleton PA-C in 1 week(s). Prescriptions given? No SIGNS AND SYMPTOMS TO REPORT Contact your health care provider if you experience any of the following symptoms: Worsening abdominal pain, inability to tolerate meals, fevers or any other concerning symptoms. Smoking Exposure: [facility] encourages all patients to decrease risks associated with smoking and second hand smoke exposure. If you smoke you are advised to quit. Ask your health care provider for advice if you need assistance to stop smoking. Avoid second-hand smoke exposure and do not let people smoke in your home. Please call [phone], our pulmonary rehabilitation department, to learn more [...] the procedure. ?? Jack Arteaga MD, PhD Environmental Journalist, therapeutic apheresis service [phone] * Rosales Tapia RN - 10/01/2018 3:21 PM CDT Plasma exchange number 3 using the right tunneled catheter for access and return with 5% albumin asreplacement fluids for a 1.0 volume exchange. Procedure completed without issues. * Leonardo Dhaliwal MD - 10/01/2018 11:57 AM CDT [facility] Adult Progress Note Admit Date: 09/28/2018 Date [...] advanced to Low fat. Pain control with Goodview PRN and morphine for breakthrough. Hypertriglyceridemia: TG coming down, Plasmapheresis day 3 today Hx of pancreatitis 2/2 inc. TG in past Acute on chronic contributed by hyperglycemia at presentation as well Resuming CHIEF STATION ENGINEER Lofibra 160 mg daily, Niacin CHIEF STATION ENGINEER, Crestor and Creon Management as above Plasmapheresis day 3 today Type 2 diabetes mellitus with insulin use: Not at goal Poor 24 hour control, increased numbers in AM today On hyperglycemia pathway Holding CHIEF STATION ENGINEER Lantus NovoLog and metformin home doses Re-titrated LantusLantus 20 units in AM and 30 units at bed time with 8 units with meals and slide Hypothyroidism: Resuming CHIEF STATION ENGINEER levothyroxine 200 mcg Anxiety and depression: Stable, Resuming CHIEF STATION ENGINEER Celexa Resuming CHIEF STATION ENGINEER Lorazepam 1 mg twice daily as needed Insomnia: Stable: Resuming CHIEF STATION ENGINEER trazodone 100 mg GERD: Stable Resuming CHIEF STATION ENGINEER Protonix Tobacco use: On Nicoderm patch Quality/Safety/Core [...] 7 AM- 5 PM: Page via the [facility] E-List 5 PM-7 AM: Call the application technician human resource intern at [employer] phone [phone]. If no response please page the senior resident at [phone] ?? Saturday and Saturday: 7 AM-12 PM: Page via the [facility] E-List 12 PM-7 AM: Call the application technician human resource intern at [employer] phone [phone]. If no response please page the senior resident at [phone] ?? If no response to the above steps in 10 minutes, please page the attending physician. Associated attestation - Leonel Valadez DO - 10/01/2018 1:28 PM [facility]T [facility] Patient seen and examined with [...] and test results. Leonel Valadez DO [facility] Adult [facility]ist Please page the resident team via the [...] patient and she is amenable. 5. For nursing home care of patients with recurring pancreatitis requiring [...] years. If you would like to discuss nursing home venousaccess and/or prophylactic apheresis, please let me know. ?? Procedure #2: ??Patient tolerated the procedure well. ??No signs or symptoms of hypocalcemia noted. ?? I have seen and examined the patient, reviewed pertinent notes and records, and remained immediately available throughout the procedure. ?? Jack Arteaga MD, PhD Environmental Journalist, therapeutic apheresis service [phone] * Daniel Whitehead RN - 09/30/2018 3:58 [...] MD - 09/30/2018 8:19 AM CDT [facility] Adult Progress Note Admit Date: 09/28/2018 Date [...] to clear liquid diet Pain control with Goodview PRN and morphine for breakthrough. Bowel regimen adequately added Planning to try to establish outpatient plasmapheresis monthly or bimonthly to prevent readmissionsto the hospital. Hypertriglyceridemia: TG coming down, Plasmapheresis day 2 today Hx of pancreatitis 2/2 inc. TG in past Acute on chronic contributed by hyperglycemia at presentation as well Resuming CHIEF STATION ENGINEER Lofibra 160 mg daily, Niacin CHIEF STATION ENGINEER, Crestor and Creon Management as above Type 2 diabetes mellitus with insulin use: Clinically stable On hyperglycemia pathway Holding CHIEF STATION ENGINEER Lantus NovoLog and metformin home doses D/C insulin drip. Starting Lantus 30 units with 8 units with meals and slide Hypothyroidism: Resuming CHIEF STATION ENGINEER levothyroxine 200 mcg Anxiety and depression: Stable, Resuming CHIEF STATION ENGINEER Celexa Resuming CHIEF STATION ENGINEER Lorazepam 1 mg twice daily as needed Insomnia: Stable: Resuming CHIEF STATION ENGINEER trazodone 100 mg GERD: Stable Resuming CHIEF STATION ENGINEER Protonix Tobacco use: On Nicoderm patch Quality/Safety/Core [...] 7 AM- 5 PM: Page via the [facility] E-List 5 PM-7 AM: Call the application technician human resource intern at [employer] phone [phone]. If no response please page the senior resident at [phone] ?? Saturday and Saturday: 7 AM-12 PM: Page via the [facility] E-List 12 PM-7 AM: Call the application technician human resource intern at [employer] phone [phone]. If no response please page the senior resident at [phone] ?? If no response to the above steps in 10 minutes, please page the attending physician. Associated attestation - Leonel Valadez DO - 09/30/2018 1:58 PM CDT [facility] Adult [facility]ist Attending Note Patient seen and examined with [...] and test results. Leonel Valadez DO [facility] Adult Hospitalist Please page the resident team [...] MD - 09/29/2018 3:41 PM CDT [facility] Adult Progress Note Admit Date: 09/28/2018 Date [...] saline hydration. Pain control with morphine and Goodview PRN Bowel regimen adequately added Pathology consulted for plasmapheresis. Planning to try to establish outpatient plasmapheresis monthly or bimonthly to prevent readmissionsto the hospital. Hypertriglyceridemia: Acute on chronic contributed by hyperglycemia at presentation as well Likely contributing to abdominal pain today Previously has responded to multiple therapies including insulin and plasmapheresis. Resuming CHIEF STATION ENGINEER Lofibra 160 mg daily, Niacin CHIEF STATION ENGINEER, Crestor Management as above Hyponatremia: Asymptomatic, monitoring clinically. Type 2 diabetes mellitus with insulin use: Clinically stable Holding CHIEF STATION ENGINEER Lantus NovoLog and metformin On insulin drip secondary to high triglyceride levels Hypothyroidism: Resuming CHIEF STATION ENGINEER levothyroxine 200 mcg Anxiety and depression: Stable, Resuming CHIEF STATION ENGINEER Celexa Resuming CHIEF STATION ENGINEER Lorazepam 1 mg twice daily as needed Insomnia: Stable: Resuming CHIEF STATION ENGINEER trazodone 100 mg GERD: Stable Resuming CHIEF STATION ENGINEER Protonix Tobacco use: On Nicoderm patch Quality/Safety/Core [...] 7 AM- 5 PM: Page via the [facility] E-List 5 PM-7 AM: Call the application technician human resource intern at [employer] phone [phone]. If no response please page the senior resident at [phone] ?? Saturday and Saturday: 7 AM-12 PM: Page [facility] the [employer] [facility] 12 PM-7 AM: Call the application technician human resource intern at [employer] phone [phone]. If no response please page the senior resident at [phone] ?? If no response to the above [...] Boyd NP - 09/29/2018 5:55 AM CDT [facility] Two patient identifier: [...] 32.67 kg/m?? Pain Rating: Rest: 6 (09/29/18 9658) Handoff Information (if present): Documentation/Intervention/Outcome: -Triglyceride level [...] Boyd NP - 09/29/2018 3:51 AM CDT [facility] Two patient identifier: [...] following two coworkers: Laura TALAVERA and Jack OLGUINpharmacy sales assistant or upon transfer to: ~~~~~~~~~~~~~~~~~~~~~~~~~~~~ Is the [...] Boyd NP - 09/29/2018 2:26 AM CDT [facility] [employer] ospitalist Cross Cover Call Two patient identifier: [...] Boyd NP - 09/28/2018 11:17 PM CDT [facility] [employer] ospitalist Cross Cover Call Two patient identifier: [...] present): Documentation/Intervention/Outcome: -RN will contact Dr. Stinson [phone] Chart reviewed. -D/W: Henrietta Please call back any time if I can be of more assistance. Carolyn Boyd NP documented in this encounter H&P Notes * Mc Stinson MD - 09/29/2018 12:12 AM CDT [facility] Adult Hospitalist History and Physical Mc Stinson [...] Tape-Silicones Hives Social History Occupational History Employer: [email or web address] Tobacco Use ??? Smoking status: Current Every [...] they have just been given. * Jeane Finely RN - 09/28/2018 7:28 PM CDT Report [...] 5:34 PM CDT HISTORY OF PRESENT ILLNESS Casandra [...] MEDICATIONS Patient's Home Medications Current Home Medications [id number] DR MAGUIRE) [birth year] CAPSULE CITALOPRAM (CELEXA) 40 [...] plan. 8:13 PM: Discussed with Dr. Silveira ([facility] Hospitalist) who will admit to Medical floor. ED provider and ED nurse verbally discussed patient plan of care at this time. [facility] Summary Statement: This is a 42-year-old female [...] specified diabetes mellitus with hyperglycemia, unspecified whether bed bug exterminator insulin use DISPOSITION, EDUCATION AND MEDICATION RECONCILIATION Medications reconciled. See after visit summary for patient education on discharged patients. ED Disposition ED Disposition Condition User Date/Time Comment Admit Abhay Salgado MD [place] Sep 28, 2018 8:12 PM ATTESTATION STATEMENTS [...] All lines removed. Tunneled cath site assessed [id number]., no signs of bleeding. 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 * Care Plan - Puja Holden LMSW - 09/30/2018 10:33 AM CDT BURAK spoke with Carolina at [facility] to inquire about OP plasmapheresis. Carolina confirmed that they are able to accommodate and can schedule appointments Saturday through Saturday. Per Carolina, Environmental Journalist will need to contact attending to discuss Logistics. Attending phone number provided ([phone]). Carolina will call back to confirm OP plasmapheresis has been set up. LOBO Reyes, DACIA [phone] Day 1 - Current ([place] [facility]: Adult and Obstetrics) Patient, family, or [...] If patient will go [place]F [place], patient does not need a PASARR screening to be started (ie, prior psych admission or intensive services, MR/DD diagnosis prior to the age of 22) Readmission Risk (patient becomes high risk with a score of 8 or greater) 5 Total Score 5 Prior Hospitalizations Primary Emergency Contact: José Miguel Doss PCP verified as Guerrero Middleton PA-C. Patient's insurance verified as Payor: Normal / Plan: ALL SAVERS CHOICE / Product Type: Commercial / [facility] [address] [place] [address] [facility] Discussed discharge goals and possible discharge needs including home with spouse. SW received consult regarding possibility of setting up OP plasmapheresis. SW spoke with Wen at [facility]- they do not offer OP plasmapheresis services. SW called [facility] as [place]. BURAK spoke with Ramakrishna who informed SW that they do not offer OP plasmapheresis either. SW called [facility] which is associated with [facility]. SW spoke with Janie. Per Janie, they do offer OP plasmapheresis services, however, patient has to be referred by a [facility] oncologist. It is not likely patient can be set up with OP plasmapheresis servicesat this time. Information above text paged to MD. Care Management contact information provided. Care Management will continue to follow and assist asneeded. LOBO Reyes, DACIA [phone] Day 1 - Current ([place] [facility]: Adult and Obstetrics) Patient, family, or [...] Lisa PCT Admission or upon transfer to: [place] [address] ~~~~~~~~~~~~~~~~~~~~~~~~~~~~ Is the patient a paraplegic/quadriplegic? Does [...] [facility] [id number] [place] [address] Marlys Mayer MD [address] [place] [address] documented as of this encounter Procedures Procedure Name Priority Date/Time Associated Diagnosis Comments IR VENOUS ACCESS Routine 10/02/2018 2:42 PM CDT POC GLUCOSE Routine 10/02/2018 1:01 PM CDT POC GLUCOSE Routine 10/02/2018 10:07 AM CDT CBC WITH DIFFERENTIAL Routine 10/02/2018 5:00 AM CDT Chylomicronemia syndrome Abdominal pain, unspecified abdominal location Other specified diabetes mellitus with hyperglycemia, unspecified whether nursing home insulin use Hypertriglyceridemia Depression with anxiety Type [...] specified diabetes mellitus with hyperglycemia, unspecified whether bed bug exterminator insulin use Hypertriglyceridemia Depression with anxiety Type [...] specified diabetes mellitus with hyperglycemia, unspecified whether bed bug exterminator insulin use Hypertriglyceridemia Depression with anxiety Type [...] specified diabetes mellitus with hyperglycemia, unspecified whether nursing home insulin use Hypertriglyceridemia Depression with anxiety Type [...] specified diabetes mellitus with hyperglycemia, unspecified whether bed bug exterminator insulin use Hypertriglyceridemia Depression with anxiety Type [...] specified diabetes mellitus with hyperglycemia, unspecified whether bed bug exterminator insulin use Hypertriglyceridemia Depression with anxiety Type [...] catheter removal. DICTATION LOCATION: Location 1 - [facility] Narrative 10/02/2018 3:44 PM CDT PROCEDURE/EXAM(S): TUNNELED [...] dialysis/pheresis catheter removal. DICTATION LOCATION: Location 1 [facility] Morales Tyson MD IR ORDERABL ES * (ABNORMAL) POC GLUCOSE (10/02/2018 1:01 PM CDT) GLUCOSE POC 285(H) 74 - 99 mg/dL 10/02/2018 1:01 PM CDT [facility] [place] NAME POC PATRICIA Browne 10/02/2018 1:01 PM CDT [facility] Whole blood specimen (specimen) 10/02/2018 1:01 PM CDT 10/02/2018 1:13 PM CDT Leonel Valadez DO POINT OF CARE TESTIN G [facility] CLIA# [id number] [address] [place] [address] * (ABNORMAL) POC GLUCOSE (10/02/2018 10:07 AM CDT) GLUCOSE POC 160(H) 74 - 99 mg/dL 10/02/2018 10:07 AM CDT [facility] [employer] [facility] [place] NAME KRUNAL EVANS 10/02/2018 10:07 AM CDT [facility] [employer] [facility] Whole blood specimen (specimen) 10/02/2018 10:07 AM CDT 10/02/2018 10:27 AM CDT Leonel Valadez DO POINT OF CARE TESTIN G Performing Organization Address [facility] Co de Phone Number [facility] [employer] [facility]# [id number] [address] [place] [address] * (ABNORMAL) TRIGLYCERIDE (10/02/2018 5:00 AM CDT) TRIGLYCERIDE 478(H) <150 mg/dL 10/02/2018 5:49 AM CDT [facility] [employer] [facility] Blood Venipuncture / Unknown 10/02/2018 5:00 AM CDT 10/02/2018 5:11 AM CDT Narrative [facility] [employer] [facility] - 10/02/2018 5:49 AM CDT TRIGLYCERIDES ? mg/dL Normal ?< 150 Borderline High ?150 - 199 High ? 200 - 499 Very High ? >= 500 Based on AHA/NCEP Guidelines. Leonel Valadez DO CHEMISTRY ORDERABLES Performing Organization Address [facility] de Phone Number [facility] [employer] [facility]# [id number] [address] [place] [address] * (ABNORMAL) BASIC METABOLIC PANEL (10/02/2018 5:00 AM CDT) SODIUM 139 136 - 145 mmol/L 10/02/2018 5:49 AM CDT [facility] [employer] [facility] POTASSIUM 3.7 3.5 - 5.0 mmol/L 10/02/2018 5:49 AM CDT [facility] CHLORIDE 105 98 - 107 mmol/L 10/02/2018 5:49 AM [facility] [address] [facility] CO2 24 22 - 29 mmol/L 10/02/2018 5:49 AM T [facility] CALCIUM 8.6 8.6 - 10.2 mg/dL 10/02/2018 5:49 AM [facility] [address] [facility] BUN 4(L) 6 - 20 mg/dL 10/02/2018 5:49 AM [facility] CREATININE 0.49(L) 0.51 - 0.95 mg/dL 10/02/2018 5:49 AM T [facility] GLUCOSE 167(H) 74 - 99 mg/dL 10/02/2018 5:49 AM [facility] [employer] [facility] GFR >60 >=60 mL/min/1.7 3 sq meter 10/02/2018 5:49 AM [facility] [employer] SERVICES - [facility] Comment: eGFR has not been [...] 3 sq meter 10/02/2018 5:49 AM T [facility] - [facility] ANION GAP 10 8 - 16 mmol/L 10/02/2018 5:49 AM [facility] [employer] [facility] - . [facility] Blood Venipuncture / Unknown 10/02/2018 5:00 AM CDT 10/02/2018 5:11 AM CDT Leonel Valadez DO CHEMISTRY ORDERABLES [facility] [employer] SERVICES [facility] CLIA# [id number] [address] [facility] [place] [address] * (ABNORMAL) CBC WITH DIFFERENTIAL (10/02/2018 5:00 AM CDT) [facility] WBC 7.5 4.0 - 9.8 K/uL 10/02/2018 5:25 AM CDT [employer] [employer] [facility] - . [facility] RBC 3.80(L) 3.90 - 4.90 M/uL 10/02/2018 5:25 AM CDT [employer] [facility] - . [facility] HEMOGLOBIN 11.1(L) 11.8 - 14.8 g/dL 10/02/2018 5:25 AM CDT [employer] [facility] - [facility] HEMATOCRIT 33.9(L) 35.5 - 44.0 % 10/02/2018 5:25 AM CDT [employer] [facility] - [facility] MCV 89.2 82.0 - 99.0 fL 10/02/2018 5:25 AM CDT [employer] [facility] - [facility] MCH 29.2 27.2 - 32.6 pg 10/02/2018 5:25 AM CDT [employer] [facility] - [facility] MCHC 32.7 31.5 - 35.5 g/dL 10/02/2018 5:25 AM CDT [facility] [facility] RDW 14.6(H) 11.5 - 14.5 % 10/02/2018 5:25 AM CDT [facility] [facility] RDW-STDEV 47.5 37.1 - 48.7 fL 10/02/2018 5:25 AM CDT [employer] [facility] - [facility] PLATELETS 159 140 - 350 K/uL 10/02/2018 5:25 AM CDT [facility] [facility] - [facility] MPV 10.1 9.3 - 12.4 fL 10/02/2018 5:25 AM CDT [employer] [facility] - . [facility] NEUTROPHILS 62 % 10/02/2018 5:25 AM CDT [facility] [facility] [employer] [facility] LYMPHOCYTES 31 % 10/02/2018 5:25 AM CDT [facility] [facility] [employer] [facility] MONOCYTES 6 % 10/02/2018 5:25 AM CDT [employer] [facility] - [facility] EOSINOPHILS 1 % 10/02/2018 5:25 AM CDT [facility] [facility] [employer] [facility] BASOPHILS 0 % 10/02/2018 5:25 AM CDT [facility] IMMATURE GRANULOCYTES 1 % 10/02/2018 5:25 AM T [facility]OR[facility] SERVICES [facility] Comment:IG (Immature Granulo cyte) count includes Metamyelocytes, Myelocytes, and Promyelocytes NEUTROPHIL ABSOLUTE 4.69 1.90 - 7.00 K/uL 10/02/2018 5:25 AM CDT [facility] LYMPHOCYTE ABSOLUTE 2.29 0.70 - 4.50 K/uL 10/02/2018 5:25 AM CDT [facility] MONOCYTE ABSOLUTE 0.41 0.10 - 1.30 K/uL 10/02/2018 5:25 AM T [facility] - . [facility] EOSINOPHIL ABSOLUTE 0.06 0.00 - 0.70 K/uL 10/02/2018 5:25 AM T [facility] - . [facility] BASOPHILS ABSOLUTE 0.02 0.00 - 0.20 K/uL 10/02/2018 5:25 AM T [facility] IMMATURE GRANULOCYTES ABSOLUTE 0.05(H) 0.00 - 0.03 K/uL 10/02/2018 5:25 AM T [facility] Blood Venipuncture / Unknown 10/02/2018 5:00 AM CDT 10/02/2018 5:12 AM CDT Jack Arteaga MD HEMATOLOGY YONI SERRANO [facility] Organization Address City/State/ZIP Co de Phone Number [facility]# [id number] 5 [facility] [place] [address] * (ABNORMAL) POC GLUCOSE (10/01/2018 9:04 PM CDT) [facility] Signature GLUCOSE POC 212(H) 74 - 99 mg/dL 10/01/2018 9:04 PM CDT [facility] [place] NAME POC NABEEL GOMEZ 10/01/2018 9:04 PM CDT [facility] Whole blood specimen (specimen) 10/01/2018 9:04 PM CDT 10/01/2018 9:25 PM CDT Leonel Valadez DO POINT OF CARE FLY Serrano [facility] CLIA# [id number] [address] [place] [address] * (ABNORMAL) POC GLUCOSE (10/01/2018 4:00 PM CDT) GLUCOSE POC 183(H) 74 - 99 mg/dL 10/01/2018 4:00 PM CDT [facility] [place] NAME KATIA COSME 10/01/2018 4:00 PM CDT [facility] Whole blood specimen (specimen) 10/01/2018 4:00 PM CDT 10/01/2018 4:19 PM CDT Leonel Valadez POINT OF CARE FLY Serrano Performing Organization Address [facility]/ZIP Co de Phone Number [facility] [employer] [facility] CLIA# [id number] [address] [place] [address] * (ABNORMAL) POC GLUCOSE (10/01/2018 9:01 AM CDT) GLUCOSE POC 237(H) 74 - 99 mg/dL 10/01/2018 9:01 AM CDT [facility] [place] NAME KATIA COSME 10/01/2018 9:01 AM CDT [facility] Whole blood specimen (specimen) 10/01/2018 9:01 AM CDT 10/01/2018 12:25 PM CDT Leonel Valadez DO POINT OF CARE FLY Serrano Performing Organization Address City/[facility]/ZIP Co de Phone Number [facility] CLIA# [id number] [address] [place] [address] * (ABNORMAL) CBC WITH DIFFERENTIAL (10/01/2018 6:04 AM CDT) [facility] WBC 7.2 4.0 - 9.8 K/uL 10/01/2018 6:38 AM CDT [facility] [employer] [facility] RBC 3.68(L) 3.90 - 4.90 M/uL 10/01/2018 6:38 AM CDT [facility] HEMOGLOBIN 10.9(L) 11.8 - 14.8 g/dL 10/01/2018 6:38 AM CDT [facility] [facility] HEMATOCRIT 32.6(L) 35.5 - 44.0 % 10/01/2018 6:38 AM CDT [employer] [facility] MCV 88.6 82.0 - 99.0 fL 10/01/2018 6:38 AM CDT [employer] [facility] MCH 29.6 27.2 - 32.6 pg 10/01/2018 6:38 AM CDT [facility] [facility] MCHC 33.4 31.5 - 35.5 g/dL 10/01/2018 6:38 AM CDT [facility] RDW 14.6(H) 11.5 - 14.5 % 10/01/2018 6:38 AM CDT [facility] [facility] RDW-STDEV 47.5 37.1 - 48.7 fL 10/01/2018 6:38 AM CDT [facility] PLATELETS 176 140 - 350 K/uL 10/01/2018 6:38 AM CDT [facility] [facility] MPV 9.9 9.3 - 12.4 fL 10/01/2018 6:38 AM CDT [facility] SERVICES - . [facility] NEUTROPHILS 69 % 10/01/2018 6:38 AM CDT [facility] [facility] - . [facility] LYMPHOCYTES 24 % 10/01/2018 6:38 AM CDT [employer] [facility] - [facility] MONOCYTES 6 % 10/01/2018 6:38 AM CDT [employer] [facility] - . [facility] EOSINOPHILS 1 % 10/01/2018 6:38 AM CDT [facility] - . [facility] BASOPHILS 0 % 10/01/2018 6:38 AM CDT [facility] IMMATURE GRANULOCYTES 0 % 10/01/2018 6:38 AM CDT [facility] SERVICES - . [facility] NEUTROPHIL ABSOLUTE 4.92 1.90 - 7.00 K/uL 10/01/2018 6:38 AM CDT [facility] - . [facility] LYMPHOCYTE ABSOLUTE 1.72 0.70 - 4.50 K/uL 10/01/2018 6:38 AM CDT [facility] - . [facility] MONOCYTE ABSOLUTE 0.41 0.10 - 1.30 K/uL 10/01/2018 6:38 AM CDT [facility] EOSINOPHIL ABSOLUTE 0.05 0.00 - 0.70 K/uL 10/01/2018 6:38 AM CDT [facility] BASOPHILS ABSOLUTE 0.02 0.00 - 0.20 K/uL 10/01/2018 6:38 AM CDT [facility]ORY SERVICES - . [facility] IMMATURE GRANULOCYTES ABSOLUTE 0.03 0.00 - 0.03 K/uL 10/01/2018 6:38 AM CDT [facility] - [facility] Blood Venipuncture / Unknown 10/01/2018 6:04 AM CDT 10/01/2018 6:10 AM CDT Jack Arteaga MD HEMATOLOGY QUITMANTima [facility] Organization Address City/State/[facility] Co de Phone Number [facility]# [id number] [address] [place] [address] * (ABNORMAL) TRIGLYCERIDE (10/01/2018 4:36 AM CDT) TRIGLYCERIDE 1,209(H) <150 mg/dL 10/01/2018 5:37 AM CDT [facility]ATORY SERVICES [facility] Blood Venipuncture / Unknown 10/01/2018 4:36 AM CDT 10/01/2018 4:39 AM CDT Narrative [facility] SERVICES [facility] - 10/01/2018 5:37 AM CDT TRIGLYCERIDES ? mg/dL Normal ?< 150 Borderline High ?150 - 199 High ? 200 - 499 Very High ? >= 500 Based on AHA/NCEP Guidelines. Leonel Valadez DO CHEMISTRY ORDERABLES [facility] CLIA# [id number] [address] [facility] [place] [address] * (ABNORMAL) BASIC METABOLIC PANEL (10/01/2018 4:36 AM CDT) SODIUM 137 136 - 145 mmol/L 10/01/2018 5:37 AM CDT [facility] POTASSIUM 3.9 3.5 - 5.0 mmol/L 10/01/2018 5:37 AM [facility] CHLORIDE 103 98 - 107 mmol/L 10/01/2018 5:37 AM T [employer] [facility] CO2 22 22 - 29 mmol/L 10/01/2018 5:[address] [facility] [employer] SERVICES - [facility] CALCIUM 8.8 8.6 - 10.2 mg/dL 10/01/2018 5:37 AM T [employer] [facility] BUN 2(L) 6 - 20 mg/dL 10/01/2018 5:[address] [facility] [employer] SERVICES - [facility] CREATININE 0.47(L) 0.51 - 0.95 mg/dL 10/01/2018 5:37 AM [facility] [employer] [facility] GLUCOSE 210(H) 74 - 99 mg/dL 10/01/2018 5:37 AM [facility] [employer] SERVICES - [facility] GFR >60 >=60 mL/min/1.7 3 sq meter 10/01/2018 5:37 AM [facility] Comment: eGFR [...] 3 sq meter 10/01/2018 5:37 AM CDT [facility] ANION GAP 12 8 - 16 mmol/L 10/01/2018 5:37 AM CDT [facility] Blood Venipuncture / Unknown 10/01/2018 4:36 AM CDT 10/01/2018 4:39 AM CDT Leonel Valadez DO CHEMISTRY ORDERABLES [facility] CLIA# [id number] [address] [place] [address] * PROTIME-INR (10/01/2018 4:36 AM CDT) PROTIME 13.5 12.7 - 15.1 Seconds 10/01/2018 4:58 AM CDT [facility] INR 1.1 0.9 - 1.1 10/01/2018 4:58 AM CDT [facility] Blood Venipuncture / Unknown 10/01/2018 4:36 AM CDT 10/01/2018 4:39 AM CDT Narrative [facility] - 10/01/2018 4:58 AM CDT INR Therapeutic [...] established. Jack Arteaga MD HEMATOLOGY YONI SERRANO [facility] CLIA# [id number] [address] [place] [address] * (ABNORMAL) POC GLUCOSE (09/30/2018 8:59 PM CDT) GLUCOSE POC 278(H) 74 - 99 mg/dL 09/30/2018 8:59 PM CDT [facility] SERVICES [facility] [place] NAME POC JACK ROBERTS 09/30/2018 8:59 PM CDT [facility] SERVICES [facility] Whole blood specimen (specimen) 09/30/2018 8:59 PM CDT 09/30/2018 9:16 PM CDT Leonel Valadez DO POINT OF CARE TESTJERONIMO Serrano Performing Organization Address [facility]/ZIP Co de Phone Number [facility] CLIA# [id number] [address] [place] [address] * (ABNORMAL) POC GLUCOSE (09/30/2018 6:02 PM CDT) GLUCOSE POC 170(H) 74 - 99 mg/dL 09/30/2018 6:02 PM CDT [facility] LAB[facility]ATORY SERVICES [facility] [place] NAME POC DAREK RAMSEY 09/30/2018 6:02 PM CDT [facility] LAB[facility]ATORY SERVICES [facility] Whole blood specimen (specimen) 09/30/2018 6:02 PM CDT 09/30/2018 6:14 PM CDT Leonel Valadez DO POINT OF CARE TESTJERONIMO Serrano Performing Organization Address City/[facility]/ZIP Co de Phone Number [facility] LAB[facility]ATORY SERVICES [facility] CLIA# [id number] [address] [place] [address] * (ABNORMAL) POC GLUCOSE (09/30/2018 2:09 PM CDT) GLUCOSE POC 169(H) 74 - 99 mg/dL 09/30/2018 2:09 PM CDT [facility] [place] NAME POC ROSA MATTHEWS 09/30/2018 2:09 PM CDT [facility] LAB[facility]ATORY SERVICES [facility] Whole blood specimen (specimen) 09/30/2018 2:09 PM CDT 09/30/2018 2:23 PM CDT Leonel Valadez DO POINT OF CARE TESTJERONIMO Serrano Performing Organization Address [facility]/ZIP Co de Phone Number [facility] CLIA# [id number] [address] [place] [address] * (ABNORMAL) POC GLUCOSE (09/30/2018 8:11 AM CDT) GLUCOSE POC 111(H) 74 - 99 mg/dL 09/30/2018 8:11 AM CDT [facility] [place] NAME POC PATRICIA Browne 09/30/2018 8:11 AM CDT [facility] Whole blood specimen (specimen) 09/30/2018 8:11 AM CDT 09/30/2018 8:23 AM CDT Leonel Valadez DO POINT OF CARE TESTJERONIMO G Performing Organization Address City/[facility]/ZIP Co de Phone Number [facility] CLNV# [id number] [address] [place] [address] * (ABNORMAL) POC GLUCOSE (09/30/2018 7:02 AM CDT) GLUCOSE POC 115(H) 74 - 99 mg/dL 09/30/2018 7:02 AM CDT [facility] [place] NAME POC PATRICIA Browen 09/30/2018 7:02 AM CDT [facility] Whole blood specimen (specimen) 09/30/2018 7:02 AM CDT 09/30/2018 7:14 AM CDT Puja Pagan MD POINT OF CARE TESTIN Maggie Performing Organization Address [facility]/ZIP Co de Phone Number [facility] [employer] [facility] CLIA# [id number] [address] [place] [address] * (ABNORMAL) POC GLUCOSE (09/30/2018 6:07 AM CDT) GLUCOSE POC 113(H) 74 - 99 mg/dL 09/30/2018 6:07 AM CDT [facility]AT[facility] SERVICES [facility] COMMENT, GLU POC Notified RN/MD 09/30/2018 6:07 AM CDT [facility] [place] NAME POC ELIGIO MARTIN 09/30/2018 6:07 AM CDT [facility] Whole blood specimen (specimen) 09/30/2018 6:07 AM CDT 09/30/2018 6:19 AM CDT Puja Pagan MD POINT OF CARE TESTJERONIMO Maggie Performing Organization Address [facility] de Phone Number [facility] [employer] [facility] CLIA# [id number] [address] [place] [address] * (ABNORMAL) POC GLUCOSE (09/30/2018 5:15 AM CDT) GLUCOSE POC 113(H) 74 - 99 mg/dL 09/30/2018 5:15 AM CDT [facility] [place] NAME POC JACK ROBERTS 09/30/2018 5:15 AM CDT [facility] Whole blood specimen (specimen) 09/30/2018 5:15 AM CDT 09/30/2018 5:28 AM CDT Puja Pagan MD POINT OF CARE TESTIN Maggie [employer] [facility] - [facility] CLIA# [id number] [address] [place] [address] * MANUAL DIFFERENTIAL (09/30/2018 5:10 AM CDT) SEGMENTED NEUTROPHILS 75 % 09/30/2018 7:30 AM CDT [facility] BANDS RELATIVE 2 0 - 5 % 09/30/2018 7:30 AM CDT [facility] LYMPHOCYTES RELATIVE 16 % 09/30/2018 7:30 AM CDT [facility] ATYPICAL LYMPHOCYTES RELATIVE 2 0 - 5 % 09/30/2018 7:30 AM CDT [facility] MONOCYTES RELATIVE 4 % 09/30/2018 7:30 AM CDT [facility] BASOPHILS RELATIVE 1 % 09/30/2018 7:30 AM T [facility] NEUTROPHILS ABSOLUTE COUNT 6.24 1.90 - 7.00 K/uL 09/30/2018 7:30 AM CDT [facility] LYMPHOCYTES ABSOLUTE 1.30 0.70 - 4.50 K/uL 09/30/2018 7:30 AM CDT [facility] MONOCYTES ABSOLUTE 0.32 0.10 - 1.30 K/uL 09/30/2018 7:30 AM CDT [facility] BASOPHILS ABSOLUTE 0.08 0.00 - 0.20 K/uL 09/30/2018 7:30 AM T [facility] TOTAL CELLS COUNTED IN DIFF 100 09/30/2018 7:30 AM T [facility] RBC MORPHOLOGY abnormal 09/30/2018 7:30 AM CDT [facility] PLATELET EST. Consistent w Count 09/30/2018 7:30 AM CDT [facility] ANISOCYTOSIS 1+ /hpf 09/30/2018 7:30 AM CDT [facility] POIKILOCYTES 1+ /hpf 09/30/2018 7:30 AM CDT [facility] POLYCHROMASIA 1+ /hpf 09/30/2018 7:30 AM T [facility] OVALOCYTES 1+ /hpf 09/30/2018 7:30 AM CDT [employer] [facility] Blood Venipuncture / Unknown 09/30/2018 5:10 AM CDT 09/30/2018 5:16 AM CDT Jack Arteaga MD HEMATOLOGY ORDOuner [facility] [employer] [facility] CLIA# [id number] 5 [facility] [place] [address] * (ABNORMAL) CBC WITH DIFFERENTIAL (09/30/2018 5:10 AM CDT) Pathologist [facility] WBC 8.1 4.0 - 9.8 K/uL 09/30/2018 5:24 AM CDT [employer] [facility]ORATORY SERVICES [facility] RBC 3.45(L) 3.90 - 4.90 M/uL 09/30/2018 5:24 AM CDT [facility] HEMOGLOBIN 10.3(L) 11.8 - 14.8 g/dL 09/30/2018 5:24 AM CDT [facility] Comment:Results corrected fo r elevated lipids. HEMATOCRIT 30.5(L) 35.5 - 44.0 % 09/30/2018 5:24 AM CDT [facility] MCV 88.4 82.0 - 99.0 fL 09/30/2018 5:24 AM CDT [facility] MCH 33.9(H) 27.2 - 32.6 pg 09/30/2018 5:24 AM CDT [facility] MCHC 33.8 31.5 - 35.5 g/dL 09/30/2018 5:24 AM CDT [facility] RDW 15.0(H) 11.5 - 14.5 % 09/30/2018 5:24 AM CDT [facility] RDW-STDEV 48.1 37.1 - 48.7 fL 09/30/2018 5:24 AM CDT [facility] PLATELETS 176 140 - 350 K/uL 09/30/2018 5:24 AM CDT [facility] MPV 9.7 9.3 - 12.4 fL 09/30/2018 5:24 AM CDT [facility] Blood Venipuncture / Unknown 09/30/2018 5:10 AM CDT 09/30/2018 5:16 AM CDT Jack Arteaga MD HEMATOLOGY [facility]O [facility] [id number] [address] [facility] [place] [place] [address] * PROTIME-INR (09/30/2018 5:10 AM CDT) PROTIME 13.3 12.7 - 15.1 Seconds 09/30/2018 5:37 AM CDT [facility] INR 1.0 0.9 - 1.1 09/30/2018 5:37 AM CDT [facility] Blood Venipuncture / Unknown 09/30/2018 5:10 AM CDT 09/30/2018 5:16 AM CDT Narrative [facility] - 09/30/2018 5:37 AM CDT INR Therapeutic [...] MD HEMATOLOGY YONI SERRANO Performing Organization Address [facility] Co de Phone Number [facility]# [id number] [address] [place] [address] * (ABNORMAL) GLUCOSE LEVEL (09/30/2018 5:10 AM CDT) GLUCOSE 122(H) 74 - 99 mg/dL 09/30/2018 5:52 AM CDT [facility] Blood Venipuncture / Unknown 09/30/2018 5:10 AM CDT 09/30/2018 5:16 AM CDT Mc Stinson MD CHEMISTRY ORDERABLES Performing Organization Address [facility] de Phone Number [facility] [employer] [facility]# [id number] [address] [place] [address] * (ABNORMAL) TRIGLYCERIDE (09/30/2018 5:10 AM CDT) TRIGLYCERIDE 2,696(H) <150 mg/dL 09/30/2018 6:06 AM CDT [facility] [employer] [facility] Blood Venipuncture / Unknown 09/30/2018 5:10 AM CDT 09/30/2018 5:16 AM CDT Narrative [facility] [employer] [facility] - 09/30/2018 6:06 AM CDT TRIGLYCERIDES ? mg/dL Normal ?< 150 Borderline High ?150 - 199 High ? 200 - 499 Very High ? >= 500 Based on AHA/NCEP Guidelines. Carolyn Boyd NP CHEMISTRY ORDERABL ES Performing Organization Address [facility] Co de Phone Number [facility] [employer] [facility]# [id number] [address] [place] [address] * (ABNORMAL) POC GLUCOSE (09/30/2018 4:23 AM CDT) GLUCOSE POC 133(H) 74 - 99 mg/dL 09/30/2018 4:23 AM CDT [facility] [place] NAME POC JACK ROBERTS 09/30/2018 4:23 AM CDT [facility] Whole blood specimen (specimen) 09/30/2018 4:23 AM CDT 09/30/2018 4:36 AM CDT Puja Pagan MD POINT OF CARE TESTIN G [facility] CLIA# [id number] [address] [place] [address] * (ABNORMAL) POC GLUCOSE (09/30/2018 3:09 AM CDT) GLUCOSE POC 121(H) 74 - 99 mg/dL 09/30/2018 3:09 AM CDT [facility] COMMENT, GLU POC Notified RN/MD 09/30/2018 3:09 AM CDT [facility] [place] NAME POC ELIGIO MARTIN 09/30/2018 3:09 AM CDT [facility] LABORATORY SERVICES [facility] Whole blood specimen (specimen) 09/30/2018 3:09 AM CDT 09/30/2018 3:27 AM CDT Puja Pagan MD POINT OF CARE TESTIN G [facility] [employer] [facility] CLIA# [id number] [address] [place] [address] * (ABNORMAL) POC GLUCOSE (09/30/2018 2:07 AM CDT) GLUCOSE POC 109(H) 74 - 99 mg/dL 09/30/2018 2:07 AM CDT [facility] LAB[facility] SERVICES [facility] [place] NAME POC JACK ROBERTS 09/30/2018 2:07 AM CDT [facility] LABORATORY SERVICES [facility] Whole blood specimen (specimen) 09/30/2018 2:07 AM CDT 09/30/2018 2:23 AM CDT Puja Pagan MD POINT OF CARE TESTIN Performing Organization Address [facility] Co de Phone Number [facility]# [id number] [address] [place] [address] * (ABNORMAL) POC GLUCOSE (09/30/2018 1:17 AM CDT) GLUCOSE POC 123(H) 74 - 99 mg/dL 09/30/2018 1:17 AM CDT [facility] LABORATORY SERVICES [facility] COMMENT, GLU POC Notified RN/MD 09/30/2018 1:17 AM CDT [facility] [place] NAME POC MARIO ELIGIO 09/30/2018 1:17 AM CDT [facility] LABORATORY SERVICES [facility] Whole blood specimen (specimen) 09/30/2018 1:17 AM CDT 09/30/2018 1:29 AM CDT Puja Pagan MD POINT OF CARE TESTJERONIMO Serrano Performing Organization Address [facility] Co de Phone Number [facility] [employer] [facility]# [id number] [address] [place] [address] * (ABNORMAL) POC GLUCOSE (09/30/2018 12:07 AM CDT) GLUCOSE POC 128(H) 74 - 99 mg/dL 09/30/2018 12:07 AM CDT [facility] [place] NAME POC JACK ROBERTS 09/30/2018 12:07 AM CDT [facility] Whole blood specimen (specimen) 09/30/2018 12:07 AM CDT 09/30/2018 12:24 AM CDT Puja Pagan MD POINT OF CARE TESTJERONIMO Maggie Performing Organization Address [facility]/ZIP Co de Phone Number [facility] CLIA# [id number] [address] [place] [address] * (ABNORMAL) POC GLUCOSE (09/29/2018 11:11 PM CDT) GLUCOSE POC 100(H) 74 - 99 mg/dL 09/29/2018 11:11 PM CDT [facility] [place] NAME POC JACK ROBERTS 09/29/2018 11:11 PM CDT [facility] Whole blood specimen (specimen) 09/29/2018 11:11 PM CDT 09/29/2018 11:30 PM CDT Puja Pagan MD POINT OF CARE TESTJERONIMO Maggie Performing Organization Address [facility]/ZIP Co de Phone Number [facility] CLIA# [id number] [address] [place] [address] * (ABNORMAL) POC GLUCOSE (09/29/2018 10:04 PM CDT) GLUCOSE POC 112(H) 74 - 99 mg/dL 09/29/2018 10:04 PM CDT [facility] COMMENT, GLU POC Notified RN/MD 09/29/2018 10:04 PM CDT [facility] ELIGIO MARTIN 09/29/2018 10:04 PM CDT [facility] Whole blood specimen (specimen) 09/29/2018 10:04 PM CDT 09/29/2018 10:16 PM CDT Puja Pagan MD POINT OF CARE TESTIN Maggie [facility] CLIA# [id number] [address] [place] [address] * (ABNORMAL) POC GLUCOSE (09/29/2018 9:15 PM CDT) GLUCOSE POC 121(H) 74 - 99 mg/dL 09/29/2018 9:15 PM CDT [facility] SERVICES [facility] COMMENT, GLU POC Notified RN/ 09/29/2018 9:15 PM CDT [facility] SERVICES [facility] [place] NAME ELIGIO JOHNSON 09/29/2018 9:15 PM CDT [facility] SERVICES [facility] Whole blood specimen (specimen) 09/29/2018 9:15 PM CDT 09/29/2018 9:32 PM CDT Puja Pagan MD POINT OF CARE TESTIN G Performing Organization Address [facility]/ZIP Co de Phone Number [facility] CLIA# [id number] [address] [place] [place] [address] * (ABNORMAL) POC GLUCOSE (09/29/2018 7:48 PM CDT) GLUCOSE POC 114(H) 74 - 99 mg/dL 09/29/2018 7:48 PM CDT [facility] SERVICES [facility] COMMENT, GLU POC Notified RN/ 09/29/2018 7:48 PM CDT [facility] [place] NAME ELIGIO JOHNSON 09/29/2018 7:48 PM CDT [facility] SERVICES [facility] Whole blood specimen (specimen) 09/29/2018 7:48 PM CDT 09/29/2018 8:09 PM CDT Albert Silveira MD POINT OF CARE TESTIN G [facility] [employer] [facility] CLNV# [id number] [address] [place] [address] * (ABNORMAL) POC GLUCOSE (09/29/2018 7:15 PM CDT) GLUCOSE POC 119(H) 74 - 99 mg/dL 09/29/2018 7:15 PM CDT [facility] - [facility] COMMENT, GLU POC Notified CLAU/ 09/29/2018 7:15 PM CDT [facility] [place] NAME ABHAY CORTES 09/29/2018 7:15 PM CDT [facility] Whole blood specimen (specimen) 09/29/2018 7:15 PM CDT 09/29/2018 7:27 PM CDT Albert Silveira MD POINT OF CARE TESTIN G Performing Organization Address [facility] Co de Phone Number [facility] CLIA# [id number] [address] [place] [address] * (ABNORMAL) POC GLUCOSE (09/29/2018 6:09 PM CDT) GLUCOSE POC 121(H) 74 - 99 mg/dL 09/29/2018 6:09 PM CDT [facility] COMMENT, GLU POC Notified BREANN 09/29/2018 6:09 PM CDT [facility] [place] NAME ABHAY CORTES 09/29/2018 6:09 PM CDT [facility]ORAT[facility] SERVICES [facility] Whole blood specimen (specimen) 09/29/2018 6:09 PM CDT 09/29/2018 6:21 PM CDT Albert Silveira MD POINT OF CARE TESTJERONIMO Serrano Performing Organization Address [facility] Co de Phone Number [facility] SERVICES [facility] CLIA# [id number] [address] [place] [address] * (ABNORMAL) POC GLUCOSE (09/29/2018 4:39 PM CDT) GLUCOSE POC 146(H) 74 - 99 mg/dL 09/29/2018 4:39 PM CDT [facility]AT[facility] SERVICES [facility] COMMENT, GLU POC Notified BREANN 09/29/2018 4:39 PM CDT [facility] ABHAY CORTES 09/29/2018 4:39 PM CDT [facility] Whole blood specimen (specimen) 09/29/2018 4:39 PM CDT 09/29/2018 4:51 PM CDT Albert Silveira MD POINT OF CARE TESTIN G [facility] CLIA# [id number] [address] [facility] [address] [place] [address] * IR VENOUS ACCESS (09/29/2018 4:15 PM [...] immediate use. 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 ANESTHESIA: The procedure was performed with local anesthesia. FLUOROSCOPY: The fluoroscopy Dose: ??4 mGy / 75 cGy.cm2. SURGEON: Dr. Michael Powell MD TECHNIQUE: The risks, benefits and alternatives were discussed and informed consent was obtained. Prior to beginning the procedure, [place] Protocol was performed to confirm the patient's [...] was obtained. Prior to beginning the procedure, [place] Protocol was performed to confirm the patient's [...] immediate use. DICTATION LOCATION: Location 1 - [facility] Albert Silveira MD IR ORDERABLES * POC GLUCOSE (09/29/2018 2:04 PM CDT) GLUCOSE POC 90 74 - 99 mg/dL 09/29/2018 2:04 PM CDT [facility] COMMENT, GLU POC Notified BREANN 09/29/2018 2:04 PM CDT [facility] [place] NAME CARLOS LAW 09/29/2018 2:04 PM CDT [facility] Whole blood specimen (specimen) 09/29/2018 2:04 PM CDT 09/29/2018 2:16 PM CDT Albert Silveira MD POINT OF CARE TESTIN G [facility] [employer] [facility]# [id number] [address] [facility] [place] [address] * POC GLUCOSE (09/29/2018 1:08 PM CDT) GLUCOSE POC 90 74 - 99 mg/dL 09/29/2018 1:08 PM CDT [facility] COMMENT, GLU POC Notified BREANN 09/29/2018 1:08 PM CDT [facility] SERVICES [facility] [place] NAME CARLOS LAW 09/29/2018 1:08 PM CDT [facility] SERVICES [facility] Whole blood specimen (specimen) 09/29/2018 1:08 PM CDT 09/29/2018 1:21 PM CDT Albert Silveira MD POINT OF CARE TESTIN G Performing Organization Address [facility]/ZIP Co de Phone Number [facility]# [id number] [address] [place] [address] * POC GLUCOSE (09/29/2018 12:12 PM CDT) GLUCOSE POC 85 74 - 99 mg/dL 09/29/2018 12:12 PM CDT [facility] COMMENT, GLU POC Notified RN/MD 09/29/2018 12:12 PM CDT [facility] [place] NAME POC ABHAY GARCIA 09/29/2018 12:12 PM CDT [facility] Whole blood specimen (specimen) 09/29/2018 12:12 PM CDT 09/29/2018 12:24 PM CDT Albert Silveira MD POINT OF CARE TESTJERONIMO Serrano Performing Organization Address City/[facility]/ZIP Co de Phone Number [facility] [employer] [facility]# [id number] [address] [place] [address] * (ABNORMAL) TRIGLYCERIDE (09/29/2018 11:26 AM CDT) TRIGLYCERIDE >4,425(H) <150 mg/dL 09/29/2018 1:10 PM CDT [facility] Comment:Cleared of chylomicr ons. Blood Venipuncture / Unknown 09/29/2018 11:26 AM CDT 09/29/2018 11:34 AM CDT Narrative [facility] - 09/29/2018 1:10 PM CDT TRIGLYCERIDES ? mg/dL Normal ?< 150 Borderline High ?150 - 199 High ? 200 - 499 Very High ? >= 500 Based on AHA/NCEP Guidelines. Puja Pagan MD CHEMISTRY ORDERABLES Performing Organization Address City/[facility]/ZIP Co de Phone Number [facility]# [id number] [address] [place] [address] * GLUCOSE LEVEL (09/29/2018 11:26 AM CDT) GLUCOSE 87 74 - 99 mg/dL 09/29/2018 1:30 PM CDT [facility] [employer] [facility] Comment:Cleared of chylomicr ons. Blood Venipuncture / Unknown 09/29/2018 11:26 AM CDT 09/29/2018 11:34 AM CDT Mc Stinson MD CHEMISTRY ORDERABLES Performing Organization Address [facility] de Phone Number [facility] [employer] [facility]# [id number] [address] [place] [address] * POC GLUCOSE (09/29/2018 10:15 AM CDT) GLUCOSE POC 98 74 - 99 mg/dL 09/29/2018 10:15 AM CDT [facility] COMMENT, GLU POC Notified RN/MD 09/29/2018 10:15 AM CDT [facility] [employer] [facility] [place] NAME POC ORALABHAY PECK 09/29/2018 10:15 AM CDT [facility] [employer] [facility] Whole blood specimen (specimen) 09/29/2018 10:15 AM CDT 09/29/2018 10:27 AM CDT Albert Silveira MD POINT OF CARE TESTIN G Performing Organization Address City/[facility] Co de Phone Number [facility] CLIA# [id number] [address] [place] [address] * POC GLUCOSE (09/29/2018 8:58 AM CDT) GLUCOSE POC 76 74 - 99 mg/dL 09/29/2018 8:58 AM CDT [facility] LAB[facility]ORY SERVICES [facility] [place] NAME CARLOS LAW 09/29/2018 8:58 AM CDT [facility]ORY SERVICES [facility] Whole blood specimen (specimen) 09/29/2018 8:58 AM CDT 09/29/2018 9:11 AM CDT Albert Silveira MD POINT OF CARE TESTIN G [facility] CLIA# [id number] [address] [place] [address] * POC GLUCOSE (09/29/2018 8:00 AM CDT) GLUCOSE POC 75 74 - 99 mg/dL 09/29/2018 8:00 AM CDT [facility] SERVICES [facility] COMMENT, GLU POC Notified RN/MD 09/29/2018 8:00 AM CDT [facility] [place] NAME CARLOS LAW 09/29/2018 8:00 AM CDT [facility] SERVICES [facility] Whole blood specimen (specimen) 09/29/2018 8:00 AM CDT 09/29/2018 8:13 AM CDT Albert Silveira MD POINT OF CARE TESTIN Maggie [facility] [employer] [facility] CLIA# [id number] [address] [place] [address] * POC GLUCOSE (09/29/2018 7:03 AM CDT) GLUCOSE POC 85 74 - 99 mg/dL 09/29/2018 7:03 AM CDT [facility] SERVICES - [facility] COMMENT, GLU POC Notified RN/MD 09/29/2018 7:03 AM CDT [facility] - [facility] [place] NAME CARLOS LAW 09/29/2018 7:03 AM CDT [facility] - [facility] Whole blood specimen (specimen) 09/29/2018 7:03 AM CDT 09/29/2018 7:15 AM CDT Albert Silveira MD POINT OF CARE TESTIN G Performing Organization Address [facility]/ZIP Co de Phone Number [facility] SERVICES [facility] CLIA# [id number] [address] [place] [address] * (ABNORMAL) POC GLUCOSE (09/29/2018 5:59 AM CDT) GLUCOSE POC 102(H) 74 - 99 mg/dL 09/29/2018 5:59 AM CDT [facility] - [facility] [place] NAME LAURA BROWN 09/29/2018 5:59 AM CDT [facility] - [facility] Whole blood specimen (specimen) 09/29/2018 5:59 AM CDT 09/29/2018 6:11 AM CDT Albert Silveira MD POINT OF CARE TESTIN G Performing Organization Address City/[facility]/ZIP Co de Phone Number [facility] SERVICES [facility] CLIA# [id number] [address] [place] [address] * (ABNORMAL) POC GLUCOSE (09/29/2018 4:53 AM CDT) GLUCOSE POC 167(H) 74 - 99 mg/dL 09/29/2018 4:53 AM CDT [facility] - [facility] [place] NAME LAURA BROWN 09/29/2018 4:53 AM CDT [facility] Whole blood specimen (specimen) 09/29/2018 4:53 AM CDT 09/29/2018 5:06 AM CDT Albert Silveira MD POINT OF CARE TESTIN G [facility] - [facility] CLIA# [id number] [address] [place] [address] * MANUAL DIFFERENTIAL (09/29/2018 4:10 AM CDT) SEGMENTED NEUTROPHILS 65 % 09/29/2018 7:46 AM CDT [facility] LYMPHOCYTES RELATIVE 29 % 09/29/2018 7:46 AM CDT [facility] - [facility] MONOCYTES RELATIVE 6 % 09/29/2018 7:46 AM CDT [facility] - [facility] NEUTROPHILS ABSOLUTE COUNT 6.21 1.90 - 7.00 K/uL 09/29/2018 7:46 AM CDT [facility] - [facility] LYMPHOCYTES ABSOLUTE 2.75 0.70 - 4.50 K/uL 09/29/2018 7:46 AM CDT [facility] - [facility] MONOCYTES ABSOLUTE 0.53 0.10 - 1.30 K/uL 09/29/2018 7:46 AM CDT [facility] TOTAL CELLS COUNTED IN DIFF 107 09/29/2018 7:46 AM CDT [facility] RBC MORPHOLOGY abnormal 09/29/2018 7:46 AM CDT [facility]ORY SERVICES - [facility] PLATELET EST. Consistent w Count 09/29/2018 7:46 AM CDT [facility] - [facility] ANISOCYTOSIS 1+ /hpf 09/29/2018 7:46 AM CDT [facility] - [facility] MICROCYTES 1+ /hpf 09/29/2018 7:46 AM CDT [facility] Blood Venipuncture / Unknown 09/29/2018 4:10 AM CDT 09/29/2018 4:15 AM CDT Mc Stinson MD HEMATOLOGY ORDERABLE S COM [facility] - [facility] CLIA# [id number] [address] [place] [address] * (ABNORMAL) COMPREHENSIVE METABOLIC PANEL (09/29/2018 4:10 AM CDT) SODIUM 133(L) 136 - 145 mmol/L 09/29/2018 11:44 AM [facility] POTASSIUM 3.6 3.5 - 5.0 mmol/L 09/29/2018 11:44 AM [facility] CHLORIDE 102 98 - 107 mmol/L 09/29/2018 11:44 AM T [facility] - [facility] Comment:Significant change f rom prior result, correlate clinically and redraw if necessary. CO2 22 22 - 29 mmol/L 09/29/2018 11:44 AM [facility] [employer] SERVICES - [facility] CALCIUM 7.9(L) 8.6 - 10.2 mg/dL 09/29/2018 11:44 AM [employer] SERVICES - [facility] BUN 6 6 - 20 mg/dL 09/29/2018 11:44 AM [employer] SERVICES [facility] CREATININE 0.40(L) 0.51 - 0.95 mg/dL 09/29/2018 11:44 AM [employer] SERVICES - [facility] GLUCOSE 188(H) 74 - 99 mg/dL 09/29/2018 11:44 AM [facility]AT[facility] SERVICES [facility] TOTAL PROTEIN 5.9(L) 6.7 - 8.6 g/dL 09/29/2018 11:44 AM [employer] SERVICES [facility]. [facility] ALBUMIN 3.4(L) 3.5 - 5.2 g/dL 09/29/2018 11:44 AM [employer] SERVICES [facility]. [facility] BILIRUBIN TOTAL <0.2(L) 0.3 - 1.2 mg/dL 09/29/2018 11:44 AM [employer] LABORATORY SERVICES [facility] Comment:Verified by repeat a nalysis. ALKALINE PHOSPHATASE 83 35 - 104 U/L 09/29/2018 11:44 AM [employer] LABORATORY SERVICES [facility]. [facility] AST <33 U/L 09/29/2018 11:44 AM [employer] LABORATORY SERVICES [facility] Comment:Unable to evaluate d ue to lipemia and interference on analyzer. ALT <34 U/L 09/29/2018 11:[address] [facility] [employer] [facility] Comment:Unable to evaluate d ue to lipemia and interference on analyzer. GFR >60 >=60 mL/min/1. 73 sq meter 09/29/2018 11:[address] [facility] [employer] [facility] Comment: eGFR has not been [...] mL/min/1. 73 sq meter 09/29/2018 11:[address] [facility] [employer] [facility] ANION GAP 9 8 - 16 mmol/L 09/29/2018 11:[address] [facility] [employer] [facility] Blood Venipuncture / Unknown 09/29/2018 4:10 AM CDT 09/29/2018 4:15 AM CDT Narrative [facility] [employer] [facility] - 09/29/2018 11:44 AM CDT Grossly lipemic. Cleared of chylomicrons. Samples containing indocyanine green cause interferences on Total and/or Direct Bilirubin and must not be measured. Mc Stinson MD CHEMISTRY ORDERABLES [facility] [employer] [facility] CLIA# [id number] [address] [facility] [address] [place] [address] * (ABNORMAL) CBC WITH DIFFERENTIAL (09/29/2018 4:10 AM CDT) WBC 9.5 4.0 - 9.8 K/uL 09/29/2018 7:[address] [facility] [employer] [facility] RBC 3.57(L) 3.90 - 4.90 M/uL 09/29/2018 7:09 AM [facility] [employer] LABORATORY SERVICES [facility] HEMOGLOBIN 9.5(L) 11.8 - 14.8 g/dL 09/29/2018 7:09 AM [facility] [employer] [facility] - [facility] Comment:Results corrected fo r elevated lipids. HEMATOCRIT 32.0(L) 35.5 - 44.0 % 09/29/2018 7:[address] [facility]ORY [facility] - [facility] MCV 89.6 82.0 - 99.0 fL 09/29/2018 7:09 AM T [facility] - [facility] MCH 26.6(L) 27.2 - 32.6 pg 09/29/2018 7:[address] [facility]ORY [facility] - [facility] MCHC 29.7(L) 31.5 - 35.5 g/dL 09/29/2018 7:[address] [facility] RDW 14.6(H) 11.5 - 14.5 % 09/29/2018 7:[address] [facility] [employer] [facility] RDW-STDEV 48.0 37.1 - 48.7 fL 09/29/2018 7:[address] [facility] PLATELETS 259 140 - 350 K/uL 09/29/2018 7:[address] [facility] [employer] [facility] MPV 9.1(L) 9.3 - 12.4 fL 09/29/2018 7:[address] [facility] LABORATORY SERVICES [facility] Blood Venipuncture / Unknown 09/29/2018 4:10 AM CDT 09/29/2018 4:15 AM CDT Mc Stinson MD HEMATOLOGY ORDERABLE S [facility] [employer] [facility] CLIA# [id number] [address] [place] [address] * (ABNORMAL) POC GLUCOSE (09/29/2018 3:52 AM CDT) GLUCOSE POC 195(H) 74 - 99 mg/dL 09/29/2018 3:52 AM CDT [facility] LABORATORY SERVICES [facility] [place] NAME POC JACK ROBERTS 09/29/2018 3:52 AM CDT [facility] LABORATORY SERVICES [facility] Whole blood specimen (specimen) 09/29/2018 3:52 AM CDT 09/29/2018 4:04 AM CDT Albert Silveira MD POINT OF CARE TESTIN G Performing Organization Address City/[facility]/ZIP Co de Phone Number [facility] CLIA# [id number] [address] [place] [address] * (ABNORMAL) POC GLUCOSE (09/29/2018 2:59 AM CDT) GLUCOSE POC 221(H) 74 - 99 mg/dL 09/29/2018 2:59 AM CDT [facility] SERVICES [facility] [place] NAME POC LAURA GARZA 09/29/2018 2:59 AM CDT [facility] SERVICES [facility] Whole blood specimen (specimen) 09/29/2018 2:59 AM CDT 09/29/2018 3:17 AM CDT Albert Silveira MD POINT OF CARE TESTIN G Performing Organization Address [facility] Co de Phone Number [facility] [employer] [facility] CLIA# [id number] [address] [place] [address] * (ABNORMAL) POC GLUCOSE (09/29/2018 1:31 AM CDT) GLUCOSE POC 261(H) 74 - 99 mg/dL 09/29/2018 1:31 AM CDT [facility] LAB[facility] SERVICES [facility] [place] NAME POC LAURA GARZA 09/29/2018 1:31 AM CDT [facility] LABORATORY SERVICES [facility] Whole blood specimen (specimen) 09/29/2018 1:31 AM CDT 09/29/2018 1:43 AM CDT Albert Silveira MD POINT OF CARE TESTIN G [employer] SERVICES [facility] CLIA# [id number] [address] [place] [address] * (ABNORMAL) POC GLUCOSE (09/29/2018 12:02 AM CDT) GLUCOSE POC 226(H) 74 - 99 mg/dL 09/29/2018 12:02 AM CDT [facility]ORY [facility] - [facility] [place] NAME POC HENRIETTA CANTU 09/29/2018 12:02 AM CDT [facility] - [facility] Whole blood specimen (specimen) 09/29/2018 12:02 AM CDT 09/29/2018 12:16 AM CDT Albert Silveira MD POINT OF CARE TESTIN G [facility] [employer] [facility] CLIA# [id number] [address] [place] [address] * (ABNORMAL) URINALYSIS WITH REFLEX MICROSCOPIC (09/28/2018 6:54 PM CDT) COLOR UA Colorless(A ) Pale to Dark Yellow 09/28/2018 7:31 PM CDT [facility] - [facility] CLARITY UA Clear Clear 09/28/2018 7:31 PM CDT [facility] - [facility] SPECIFIC GRAVITY UA 1.028 1.003 - 1.035 09/28/2018 7:31 PM CDT [facility] - [facility] PH UA 6.0 5.0 - 8.0 09/28/2018 7:31 PM CDT [facility] LEUKOCYTE ESTERASE UA Negative Negative 09/28/2018 7:31 PM CDT [facility] - [facility] NITRITE UA Negative Negative 09/28/2018 7:31 PM CDT [facility] PROTEIN UA Negative Negative 09/28/2018 7:31 PM CDT [facility] GLUCOSE UA 3+(A) Negative 09/28/2018 7:31 PM CDT [facility] KETONES UA Trace(A) Negative 09/28/2018 7:31 PM CDT [employer] [facility] - [facility] UROBILINOGEN UA Normal <2.0 mg/dL 9 7:31 PM CDT [facility] BILIRUBIN UA Negative Negative 09/28/2018 7:31 PM CDT [employer] [facility] - [facility] BLOOD UA 1+(A) Negative 09/28/2018 7:31 PM CDT [employer] [facility] - . [facility] WBC UA 0-2 0 - 2 /hpf 09/28/2018 7:31 PM CDT [employer] [facility] - . [facility] RBC UA 0-2 0 - 2 /hpf 09/28/2018 7:31 PM CDT [facility] . [facility] BACTERIA UA 1+(A) Negative /hpf 09/28/2018 7:31 PM CDT [employer] [facility] EPITHELIAL CELLS, URINE 6-10(A) 0 - 5 /hpf 09/28/2018 7:31 PM CDT [employer] [facility] Urine URINE SPECIMEN OBTAINED BY CLEAN CATCH PROCEDURE / Unknown Collection / Unknown 09/28/2018 6:54 PM CDT 09/28/2018 6:59 PM CDT Protocol [facility] Emergency URINE ORDERA BLES [facility]# [id number] [address] [facility] [place] [address] * (ABNORMAL) MANUAL DIFFERENTIAL (09/28/2018 6:40 PM CDT) SEGMENTED NEUTROPHILS 72 % 09/28/2018 9:14 PM CDT [employer] [facility] - . [facility] BANDS RELATIVE 1 0 - 5 % 09/28/2018 9:14 PM CDT [facility] - . [facility] LYMPHOCYTES RELATIVE 21 % 09/28/2018 9:14 PM CDT [facility] - . [facility] ATYPICAL LYMPHOCYTES RELATIVE 2 0 - 5 % 09/28/2018 9:14 PM CDT [facility] - . [facility] MONOCYTES RELATIVE 4 % 09/28/2018 9:14 PM CDT [facility] - . [facility] EOSINOPHILS RELATIVE 1 % 09/28/2018 9:14 PM CDT [employer] LABORATORY SERVICES - . [facility] NEUTROPHILS ABSOLUTE COUNT 8.29(H) 1.90 - 7.00 K/uL 09/28/2018 9:14 PM CDT [employer] LABORATORY SERVICES - [facility] LYMPHOCYTES ABSOLUTE 2.38 0.70 - 4.50 K/uL 09/28/2018 9:14 PM CDT [facility] - [facility] MONOCYTES ABSOLUTE 0.41 0.10 - 1.30 K/uL 09/28/2018 9:14 PM CDT [facility] - [facility] EOSINOPHILS ABSOLUTE 0.10 0.00 - 0.70 K/uL 09/28/2018 9:14 PM CDT [employer] LABORATORY SERVICES - . [facility] TOTAL CELLS COUNTED IN DIFF 110 09/28/2018 9:14 PM CDT [employer] LABORATORY SERVICES - . [facility] RBC MORPHOLOGY Normal 09/28/2018 9:14 PM CDT [facility] - [facility] PLATELET EST. Consistent w Count 09/28/2018 9:14 PM CDT [facility] - [facility] Blood Venipuncture / Unknown 09/28/2018 6:40 PM CDT 09/28/2018 6:45 PM CDT Protocol [facility] Emergency HEMATOLOGY O RDERABLES COM [facility] [employer] [facility] CLNV# [id number] [address] [place] [address] * LIPASE (09/28/2018 6:40 PM CDT) LIPASE 51 13 - 60 U/L 09/28/2018 8:08 PM CDT [employer] LABORATORY SERVICES [facility] Blood Venipuncture / Unknown 09/28/2018 6:40 PM CDT 09/28/2018 6:46 PM CDT Narrative [facility] LABORATORY SERVICES - [facility] - 09/28/2018 8:08 PM CDT Specimen Cleared of chylomicrons. Georgia Tomas RN Protocol [facility] Emergency CHEMISTRY OR DERABLES [facility] LABORATORY [facility] CLIA# [id number] [address] [place] [address] * (ABNORMAL) COMPREHENSIVE METABOLIC PANEL (09/28/2018 6:40 PM CDT) SODIUM 126(L) 136 - 145 mmol/L 09/28/2018 8:20 PM T [facility] LABORATORY SERVICES - . [facility] POTASSIUM 3.6 3.5 - 5.0 mmol/L 09/28/2018 8:20 PM T [facility] LABORATORY SERVICES - [facility] CHLORIDE 90(L) 98 - 107 mmol/L 09/28/2018 8:[address] [facility]ORATORY SERVICES - [facility] CO2 21(L) 22 - 29 mmol/L 09/28/2018 8:[address] [facility] CALCIUM 8.9 8.6 - 10.2 mg/dL 09/28/2018 8:[address] [facility] BUN 9 6 - 20 mg/dL 09/28/2018 8:[address] [facility] LABORATORY SERVICES - . [facility] CREATININE 0.49(L) 0.51 - 0.95 mg/dL 09/28/2018 8:[address] [facility] - . [facility] GLUCOSE 372(H) 74 - 99 mg/dL 09/28/2018 8:[address] [facility] LABOR[facility] - . [facility] TOTAL PROTEIN 6.6(L) 6.7 - 8.6 g/dL 09/28/2018 8:[address] [facility] - . [facility] ALBUMIN 4.0 3.5 - 5.2 g/dL 09/28/2018 8:[address] [facility] LAB[facility] - . [facility] BILIRUBIN TOTAL <0.2(L) 0.3 - 1.2 mg/dL 09/28/2018 8:[address] [facility] LABORAT[facility] - . [facility] ALKALINE PHOSPHATASE 104 35 - 104 U/L 09/28/2018 8:[address] [facility] LABORATORY SERVICES - . [facility] AST <33 U/L 09/28/2018 8:[address] [facility] LABORATORY SERVICES - . [facility] Comment: Unable to evaluate due to lipemia Unable to evaluate due to lipemia. ALT <34 U/L 09/28/2018 8:20 PM CDT [facility] LABOR[facility] Comment: Unable to evaluate due to lipemia Unable to evaluate due to lipemia. GFR >60 >=60 mL/min/1.7 3 sq meter 09/28/2018 8:20 PM T [facility] Comment: eGFR has not been [...] 3 sq meter 09/28/2018 8:20 PM CDT [facility] LABORATORY [facility] ANION GAP 15 8 - 16 mmol/L 09/28/2018 8:20 PM T [facility] LABORATORY [facility] Blood Venipuncture / Unknown 09/28/2018 6:40 PM CDT 09/28/2018 6:46 PM CDT Narrative [facility] LABORATORY [facility] - 09/28/2018 8:20 PM CDT Specimen Cleared of chylomicrons. Unable to report AST/ALT informed Genoveva OLGUIN Samples containing indocyanine green cause interferences on Total and/or Direct Bilirubin and must not be measured. Protocol [facility] Emergency MD CHEMISTRY OR DERABLES [facility] [employer] [facility] CLIA# [id number] [address] [place] [facility] [address] ARAMND [place]R[address] [address] * (ABNORMAL) CBC WITH DIFFERENTIAL (09/28/2018 6:40 PM CDT) WBC 11.4(H) 4.0 - 9.8 K/uL 09/28/2018 7:01 PM CDT [facility] LABORATORY [facility] RBC 3.98 3.90 - 4.90 M/uL 09/28/2018 7:01 PM CDT [facility] LABORATORY SERVICES - [facility] HEMOGLOBIN 11.0(L) 11.8 - 14.8 g/dL 09/28/2018 7:01 PM CDT [facility] LABORATORY SERVICES - [facility] Comment:Results corrected fo r elevated lipids. HEMATOCRIT 29.7(L) 35.5 - 44.0 % 09/28/2018 7:01 PM CDT [facility] LABORATORY SERVICES - [facility] MCV 86.9 82.0 - 99.0 fL 09/28/2018 7:01 PM CDT [facility] LABORATORY SERVICES - [facility] MCH 27.6 27.2 - 32.6 pg 09/28/2018 7:01 PM CDT [facility] LABORATORY SERVICES - [facility] MCHC 37.0(H) 31.5 - 35.5 g/dL 09/28/2018 7:01 PM CDT [facility] LABORATORY SERVICES - [facility] RDW 14.6(H) 11.5 - 14.5 % 09/28/2018 7:01 PM CDT [facility] LABORATORY SERVICES - [facility] RDW-STDEV 46.6 37.1 - 48.7 fL 09/28/2018 7:01 PM CDT [facility] LABORATORY SERVICES - [facility] PLATELETS 310 140 - 350 K/uL 09/28/2018 7:01 PM CDT [facility] LABORATORY SERVICES - [facility] MPV 9.4 9.3 - 12.4 fL 09/28/2018 7:01 PM CDT [facility] LABORATORY SERVICES - [facility] Blood Venipuncture / Unknown 09/28/2018 6:40 PM CDT 09/28/2018 6:45 PM CDT Protocol [facility] Emergency MD HEMATOLOGY O RDERABLES [facility] [employer] SERVICES [facility] CLIA# [id number] [address] [facility] [address] [place] [place] [address] * EKG 12-LEAD (09/28/2018 6:00 PM CDT) 09/28/2018 6:00 PM CDT Narrative INTERFACE SYSTEM - 09/29/2018 9:53 AM CDT ? Stationary ECG Study ? [facility] ? Test Date: ?09/28/2018 6:00 PM Pat Name: ? CASANDRA FEDDER ?Department: ?? 36 ?Room: ? 4212 Gender: ? F ?Cycle Director: ?? : ?1975 ? Requested By: ?? Order Number: [id number] ?Reading MD: ?? Malcom Blackburn ? Measurements Intervals ?[place] ? Rate: ? 103 ?P: ?57 MI: ? 154 ?QRS: ?60 QRSD: ? 86 ? T: ?-7 QT: ? 354 ? QTc: ?464 ? Interpretive Statements ? Sinus tachycardia Probable left atrial enlargement Borderline T abnormalities, inferior leads Electronically Signed On 09-29-2018 9:53:37 CDT by Malcom Blackburn Procedure Note Malcom Blackburn MD - 09/22/2020 Stationary ECG Study [facility] Test Date: 09/28/2018 6:00 PM Pat Name: CASANDRA DOSS Department: 36 Room: 4212 Gender: F Cycle Director: : 1975 Requested By: Order Number: [id number] Reading MD: Malcom Blackburn Measurements Intervals [place] Rate: 103 P: 57 MI: 154 QRS: 60 QRSD: 86 T: -7 QT: 354 QTc: 464 Interpretive Statements Sinus tachycardia Probable left atrial enlargement Borderline T abnormalities, inferior leads Electronically Signed On 09-29-2018 9:53:37 CDT by Malcom Blackburn Abhay Lan MD ECG ORDERABLES Performing Organization Address City/State/[facility] Co de Phone Number INTERFACE SYSTEM Refer to clinic/hospital department documented in this encounter Visit Diagnoses Diagnosis 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 syndrome Hyperchylomicronemia Abdominal pain, unspecified abdominal location Other specified diabetes mellitus with hyperglycemia, unspecified whether nursing home insulin use Hypertriglyceridemia Pure hyperglyceridemia Depression with [...] Given 09/29/2018 10:07 PM CDT 650 mg oyzxjmi-uuwcko-lqpqrtnu DR NicholsCRERUDI 12) 60-12-38 per capsule 2 [...] PRN, Starting on Sat09/29/18 at 0001, Until [facility] 10/02/18 at 1845, Nausea/Emesis, Routine Given 09/30/2018 8:33 PM CDT 4 mg Given 09/29/2018 3:59 AM CDT 4 mg ondansetron (ZOFRAN) 4 mg/2 mL injection 4 mg 4 mg, IV, ONE TIME ONLY, 1 dose, On [place] 09/28/18 at 1845, Routine Given 09/28/2018 6:56 [...] chloride (OCEAN) 0.65 % nasal soln 2 [place] 2 [place], Both Nostrils, EVERY 15 MINUTES PRN, Starting [...] CDT. Scheduled Medication Order 09/30/2018 10/01/2018 10/02/2018 jqavqhe-qulsxa-tuwqqsr e (CREON 12) 87-12-46 per capsule 2 Capsule 2 Capsule, Oral, [...] not eating breakfast.)1136 (Given - Provider: Katia Liam RN)1943 (Given - Provider: BLAISE Cabezas)2100 (Refused [...] Rosa Matthews RN)2024 (Given - Provider: Jack Rboerts RN) 0854 (Given - Provider: Katia Lima [...] Rosa Matthews RN)2222 (Given - Provider: Jack Roberts RN) 0438 (Given - Provider: Jack Roberts [...] Jack Roberts RN)0719 (Given - Provider: Jack Rboerts RN)0928 (Given - Provider: Rosa Matthews RN) [...] chloride (OCEAN) 0.65 % nasal soln 2 [place] 2 [place], Both Nostrils, EVERY 15 MINUTES PRN, Starting on Sat10/01/18 at 0431, Until Sat10/02/18 at 1845, Congestion, Routine 0904 (Given - Provider: Katia Lima RN) documented in this encounter Care Teams Quenching Car Operator Relationship Specialty Start Date End Date Guerrero Middleton PA-C PCP - General Physician Outside Production Inspector 02/13/18 documented as of this encounter
--- OUTSIDE RECORDS SUMMARY | 2024-05-03 21:56 | XMS_ITS | Encounter Summary ---
Author Organization [facility] Address [address] [place] [address] Care Team Providers Care Gis Software Engineer Name Role Phone Guerrero Middleton PA-C Primary Care Provide r Reason for Visit * Reason Comments Diabetes Rx refill Encounter Details Date Type Department Care Team (Late st Contact Info) Description 10/28/2018 2:00 PM CDT Office Visit [facility] Endocrinology [address] [place] [address] Blake Rudd MD NO ADDRESS [...] Rudd MD - 10/28/2018 2:06 PM CDT [facility] End[facility]ology PCP: Guerrero Middleton PA-C NAME: Casandra [...] for bimonthly pheresis She is going to [place] in the coming weeks for evaluation. She [...] u PM : 22 u . ??? jwkckqb-lieeyx-czcrivmn DR (CREON) 60-12-38 capsule Take 2 Capsules [...] level: Not on file Occupational History Employer: [employer] Social Needs ??? Financial resource strain: Not [...] Gets together: Three times a week Attends yazidism service: Never Active member of club or [...] TUNNELED VENOUS CATHETER PLACEMENT Right 09/29/2018 ??? AL ESOPHAGOGASTRODUODENOSCOPY TRANSORAL DIAGNOSTIC N/A 03/08/2018 ESOPHAGOGASTRODUODENOSCOPY performed by Ceasar Vega MD at [facility] Physical Findings: No results [...] [facility] ([facility] Heart and Vascular - [facility] [address] [place] [address] Marlys Mayer MD [address] [place] [address] documented as of this encounter Visit Diagnoses Diagnosis Type 2 diabetes mellitus with hyperglycemia, with long-term current use of insulin- Primary Acquired hypothyroidism Unspecified hypothyroidism Hypertriglyceridemia Pure hyperglyceridemia Pancreatitis, recurrent Chronic pancreatitis documented in this encounter Care Teams Gis Software Engineer Relationship Specialty Start Date End Date Guerrero Middleton PA-C PCP - General Physician Hvac Technician Residential 02/13/18 documented as of this encounter
--- OUTSIDE RECORDS SUMMARY | 2024-05-03 21:56 | XMS_ITS | Encounter Summary ---
Author Organization [facility] Address [address] [place] [address] Care Team Providers Care Brick Extruder Operator Name Role Phone Guerrero Middleton PA-C Primary Care Provide r Encounter Details Date Type Department Care Team (Latest Contact Info) Description 01/14/2019 9:30 AM CDT - 01/14/2019 11:59 PM T Hospital Encounter [facility] [address] [place] [address] Alize Arteaga MD NO ADDRESS ON FILE [...] and records. ?? Alize Arteaga MD, PhD Dish Person, therapeutic apheresis service [phone] ?? Procedure #7 notes: patient tolerated procedure well. documented in this encounter Plan of Treatment Upcoming Encounters Date Type Department Care Team (Late st Contact Info) Description 09/14/2024 3:00 PM CDT Office Visit [facility] Heart [facility] Vascular - [facility] [address] [place] [address] Marlys Mayer MD [address] [place], [place] [id number] documented as of this encounter Procedures Procedure [...] 884(H) <150 mg/dL 01/14/2019 12:14 PM CDT [facility] [employer] [facility] Blood Collection / Unknown 01/14/2019 11:25 AM CDT 01/14/2019 11:25 AM CDT [facility] [employer] [facility] - 01/14/2019 12:14 PM CDT TRIGLYCERIDES ? mg/dL Normal ?< 150 Borderline High ?150 - 199 High ? 200 - 499 Very High ? >= 500 Based on AHA/NCEP Guidelines. Alize Arteaga MD CHEMISTRY ORDER [facility] [employer] [facility]# [id number] [address] [place] [address] * (ABNORMAL) TRIGLYCERIDE (01/14/2019 9:48 AM CDT) TRIGLYCERIDE 2,373(H) <150 mg/dL 01/14/2019 10:49 AM CDT [facility] [employer] [facility] Blood Collection / Unknown 01/14/2019 9:48 AM CDT 01/14/2019 9:48 AM CDT [facility] [employer] [facility] - 01/14/2019 10:49 AM CDT TRIGLYCERIDES ? mg/dL Normal ?< 150 Borderline High ?150 - 199 High ? 200 - 499 Very High ? >= 500 Based on AHA/NCEP Guidelines. Alize Arteaga MD CHEMISTRY ORDER [facility] LABORATORY SERVICES [facility]# [id number] [address] [facility] [place] [address] documented in this encounter Visit Diagnoses Diagnosis [...] Units documented in this encounter Care Teams Brick Extruder Operator Relationship Specialty Start Date End Date Guerrero Middleton PA-C PCP - General Physician Fruit Sprayer 02/13/18 documented as of this encounter
--- OUTSIDE RECORDS SUMMARY | 2024-05-03 21:56 | XMS_ITS | Encounter Summary ---
Author Organization [facility] Address [address] [place] [address] Care Team Providers Care Paperhanger Pipe Name Role Phone Guerrero Middleton PA-C Primary Care Provide r Encounter Details Date Type Department Care Team (Latest Contact Info) Description 11/12/2018 9:25 AM CDT - 11/12/2018 11:59 PM T Hospital Encounter [facility] Blood Bank Donor Center [address] [facility] [address] [place] [address] Alize Arteaga MD NO ADDRESS ON FILE [...] the procedure. ?? Alize Arteaga MD, PhD Furniture Assembly Supervisor, therapeutic apheresis service [phone] * Robyn Hernandez, RN - 11/12/2018 12:57 [...] [facility] - [facility] [address] [place] [address] Marlys Mayer MD [address] [place] [address] documented as of this encounter Procedures Procedure [...] - 9.8 K/uL 11/12/2018 10:18 AM CDT [employer] LABORATORY SERVICES - [facility] RBC 4.27 3.90 - 4.90 M/uL 11/12/2018 10:18 AM CDT [employer] LABORATORY SERVICES - [facility] HEMOGLOBIN 13.4 11.8 - 14.8 g/dL 11/12/2018 10:18 AM CDT [employer] SERVICES - [facility] HEMATOCRIT 37.7 35.5 - 44.0 % 11/12/2018 10:18 AM CDT [employer] SERVICES - [facility] MCV 88.3 82.0 - 99.0 fL 11/12/2018 10:18 AM CDT [employer] SERVICES - [facility] MCH 31.4 27.2 - 32.6 pg 11/12/2018 10:18 AM CDT [employer] LABORATORY SERVICES - [facility] MCHC 35.5 31.5 - 35.5 g/dL 11/12/2018 10:18 AM CDT [employer] SERVICES - [facility] PLATELETS 341 140 - 350 K/uL 11/12/2018 10:18 AM CDT [employer] SERVICES - [facility] MPV 9.0(L) 9.3 - 12.4 fL 11/12/2018 10:18 AM CDT [employer] SERVICES - [facility] RDW 15.5(H) 11.5 - 14.5 % 11/12/2018 10:18 AM CDT [employer] SERVICES - [facility] RDW-STDEV 50.1(H) 37.1 - 48.7 fL 11/12/2018 10:18 AM T [employer] SERVICES - [facility] Blood Collection / Unknown 11/12/2018 10:10 AM CDT 11/12/2018 10:10 AM CDT Alize Arteaga MD HEMATOLOGY YONI SERRANO [employer] LABORATORY SERVICES [facility]# [id number] [address] [place] [address] * (ABNORMAL) TRIGLYCERIDE (11/12/2018 10:08 AM CDT) TRIGLYCERIDE 3,936(H) <150 mg/dL 11/12/2018 11:19 AM CDT [facility] [employer] [facility] Blood Collection / Unknown 11/12/2018 10:08 AM CDT 11/12/2018 10:09 AM CDT Narrative [facility] LABORATORY [facility] - 11/12/2018 11:19 AM CDT TRIGLYCERIDES ? mg/dL Normal ?< 150 Borderline High ?150 - 199 High ? 200 - 499 Very High ? >= 500 Based on AHA/NCEP Guidelines. Alize Arteaga MD CHEMISTRY ORDER OS[facility] [employer] [facility]# [id number] [address] [place] [address] documented in this encounter Visit Diagnoses Diagnosis [...] Units documented in this encounter Care Teams Paperhanger Pipe Relationship Specialty Start Date End Date Guerrero Middleton PA-C PCP - General Physician Sugar Mixer 02/13/18 documented as of this encounter
--- OUTSIDE RECORDS SUMMARY | 2024-05-03 21:56 | XMS_ITS | Encounter Summary ---
Author Organization [facility] Address [address] [place] [address] Care Team Providers Care Extension Work Director Name Role Phone Guerrero Middleton PA-C Primary Care Provide r Encounter Details Date Type Department Care Team (Latest Contact Info) Description 11/14/2018 9:41 AM CDT - 11/14/2018 11:59 PM T Hospital Encounter [facility] Blood Bank Donor Center S [employer] [address] [place] [address] Marlys Mayer MD [address] [place] [address] Discharge Disposition: Home or Self Care Social [...] How often do you attend chur or baptism services? Never 08/21/2018 Do you [...] the procedure. ?? Alize Arteaga MD, PhD Rehabilitation Program Manager, therapeutic apheresis service [phone] * Rosales Tapia RN - 11/14/2018 1:17 [...] [facility] Heart [facility] V[facility] - [facility] [address] [place] [address] Marlys Mayer MD [address] [place] [address] documented as of this encounter Procedures Procedure [...] 1,842(H) <150 mg/dL 11/14/2018 11:04 AM CDT [facility] [employer] [facility] Blood Collection / Unknown 11/14/2018 9:40 AM CDT 11/14/2018 10:22 AM CDT [facility] [employer] [facility] - 11/14/2018 11:04 AM CDT TRIGLYCERIDES ? mg/dL Normal ?< 150 Borderline High ?150 - 199 High ? 200 - 499 Very High ? >= 500 Based on AHA/NCEP Guidelines. Alize Arteaga MD CHEMISTRY ORDER OSVALDO [facility] [employer] [facility]# [id number] [address] [place] [address] * PROTIME-INR (11/14/2018 9:40 AM CDT) PROTIME 14.1 12.7 - 15.1 Seconds 11/14/2018 10:36 AM CDT [facility] [employer] [facility] INR 1.1 0.9 - 1.1 11/14/2018 10:36 AM CDT [facility] [employer] [facility] Blood Collection / Unknown 11/14/2018 9:40 AM CDT 11/14/2018 10:22 AM CDT [facility] [employer] [facility] - 11/14/2018 10:36 AM CDT INR Therapeutic [...] established. Alize Arteaga MD HEMATOLOGY YONI SERRANO [facility] LABORATORY [facility]# [id number] [address] [place] [address] documented in this encounter Visit Diagnoses Diagnosis [...] L/hr documented in this encounter Care Teams Extension Work Director Relationship Specialty Start Date End Date Guerrero Middleton PA-C PCP - General Physician Net Developer 02/13/18 documented as of this encounter
--- OUTSIDE RECORDS SUMMARY | 2024-05-03 21:56 | XMS_ITS | Encounter Summary ---
Author Organization [facility] Address [address] [place] [address] Care Team Providers Care Well Blower Name Role Phone Guerrero Middleton PA-C Primary Care Provide r Reason for Visit * Reason Onset Date Comments Erroneous encounter-disregard 12/10/2018 Encounter Details Date Type Department Care Team (Late st Contact Info) Description 12/10/2018 Telephone [facility] Endocrinology [address] [place] [address] Blake Rudd MD NO ADDRESS [...] and Vascular - [place] [address] [place] [id number] Marlys Mayer MD [address] [place] [address] documented as of this encounter Visit Diagnoses Not on filedocumented in this encounter Care Teams Well Blower Relationship Specialty Start Date End Date Guerrero Middleton PA-C PCP - General Physician Examiner Rating Clerk 02/13/18 documented as of this encounter
--- OUTSIDE RECORDS SUMMARY | 2024-05-03 21:56 | XMS_ITS | Encounter Summary ---
Author Organization [facility] Address [address] [place] [address] Care Team Providers Care Speech Correction Consultant Name Role Phone Guerrero Middleton PA-C Primary Care Provide r Reason for Visit * Auth/Cert Specialty Diagnoses / Procedures Referred By Contac t Referred To Contact Critical Care Medicine [facility] Transitional Care Unit [address] [place] [address] Referral ID Status Reason Start Date Expiration Date Visits Re quested Visits Authorized [id number] 1 1 Encounter Details Date Type Department Care Team (Late st Contact Info) Description 10/29/2018 10:58 AM CDT Anesthesia Event [facility] Interventional Radiology [facility] [address] [place] [address] Tyra Lugo MD [address] [place] [address] Anesthesia Record Procedure Summary Procedure [...] by Karen Hassan RN 10/31/18 1500 by Ssuan Booker RN Peripheral IV Orientation: Right, Lower; [...] to blood products. Plan discussed with Anesthesiologist Franchise Business Consultant. Smoking Compliance Patient did not smoke on day of surgery documented in this encounter Plan of Treatment Upcoming Encounters Date Type Department Care Team (Late st Contact Info) Description 09/14/2024 3:00 PM CDT Office Visit [facility] Heart and Vascular - [facility] [address] [place] [address] Marlys Mayer MD [address] [place] [address] documented as of this encounter Visit Diagnoses [...] mg documented in this encounter Care Teams Speech Correction Consultant Relationship Specialty Start Date End Date Guerrero Middleton PA-C PCP - General Physician Franchise Business Consultant 02/13/18 documented as of this encounter
--- OUTSIDE RECORDS SUMMARY | 2024-05-03 21:56 | XMS_ITS | Encounter Summary ---
Author Organization [facility] Address [address] [place] [address] Care Team Providers Care Languages And Literature Instructor Name Role Phone Guerrero Middleton PA-C Primary Care Provide r Reason for Visit * Reason Onset Date Comments Appointment with Dr. Rudd 10/28/2018 Encounter Details Date Type Department Care Team (Late st Contact Info) Description 10/28/2018 Telephone [facility] Heart and Vascular At [address] [place] [address] Marlys Mayer MD [address] [place] [address] [address] [place] [address] Rudd Social [...] Mitchell - 10/28/2018 2:[address] Rudd approved the port, is calling Dr. Knutson and is having pt go to ED. Pt states that Dr. Mayer asked to be advised if pt went to ED. Please call patient at [phone]. Thank you. * Telephone Encounter - Alexandra [...] and Vascular - [place] [address] [place] [address] Marlys Mayer MD [address] [place] [address] documented as of this encounter Visit Diagnoses Not on filedocumented in this encounter Care Teams Languages And Literature Instructor Relationship Specialty Start Date End Date Guerrero Middleton PA-C PCP - General Physician Location Analyst 02/13/18 documented as of this encounter
--- OUTSIDE RECORDS SUMMARY | 2024-05-03 21:56 | XMS_ITS | Encounter Summary ---
Author Organization [facility] Address [address] [place] [address] Care Team Providers Care Radiochemical Technician Name Role Phone Guerrero Middleton PA-C Primary Care Provide r Reason for Visit * Reason Onset Date Comments elevated triglycerides 10/23/2018 Encounter Details Date Type Department Care Team (Late st Contact Info) Description 10/23/[address] [facility] Heart and Vascular At [facility] [address] [place] [id number] Marlys Mayer MD [address] [place] [address] elevated triglycerides Social History Tobacco [...] Called Dr.Pankaj Osorio's office, spoke with Thuy, press secretary. She will email to see if he received our email on June 19, 2018 and if he has any recommendations for patient. Has my direct callback number. Spoke with administration and placed referral to [facility], patient medical record number is [id number]. Patient may call 's office directly for appointment at [phone]. Ifpatient makes appointment she needs to confirm her [facility] documented in this encounter Plan of Treatment Upcoming Encounters Date Type Department Care Team (Late st Contact Info) Description 09/14/2024 3:00 PM CDT Office [facility] [address] [place] [address] Marlys Mayer MD [address] [place] [address] documented as of this encounter Visit Diagnoses Not on filedocumented in this encounter Care Teams Radiochemical Technician Relationship Specialty Start Date End Date Guerrero Middleton PA-C PCP - General Physician Mis Manager 02/13/18 documented as of this encounter
--- OUTSIDE RECORDS SUMMARY | 2024-05-03 21:57 | XMS_ITS | Encounter Summary ---
Author Organization [facility] Address [address] [place] [address] Care Team Providers Care Pharmaceutical Salesperson Name Role Phone Guerrero Middleton PA-C Primary Care Provide r Reason for Visit * Reason Onset Date Comments Erroneous encounter-disregard 06/16/2018 Encounter Details Date Type Department Care Team ([facility] Contact Info) Description 06/16/2018 Telephone [facility] Heart and Vascular At [address] [place] [phone] Marlys Mayer MD [address] [place] [address] [address] [place], [place] [id number] Erroneous encounter-disregard Social History Tobacco Use Types [...] [facility] - [facility] [address] [address] [address] [place] [address] Marlys Mayer MD [address] [facility] [address] [place], [place] [id number] documented as of this encounter Visit Diagnoses Not on filedocumented in this encounter Care Teams Pharmaceutical Salesperson Relationship Specialty Start Date End Date Guerrero Middleton PA-C PCP - General Physician Shagger 02/13/18 documented as of this encounter
--- OUTSIDE RECORDS SUMMARY | 2024-05-03 21:57 | XMS_ITS | Encounter Summary ---
Author Organization [facility] Address [address] [place] [address] Care Team Providers Care Herbologist Name Role Phone Guerrero Middleton PA-C Primary Care Provide r Encounter Details Date Type Department Care Team (Late st Contact Info) Description 08/19/2018 Abstract [facility] Endocrinology [address] [place] [address] Blake Rudd MD NO ADDRESS [...] often do you attend chur ch or mandaen services? Never 08/21/2018 Do you [...] [facility] [address] [place] [address] Marlys Mayer MD [address] [place] [address] documented as of this encounter Visit Diagnoses Not on filedocumented in this encounter Care Teams Herbologist Relationship Specialty Start Date End Date Guerrero Middleton PA-C PCP - General Physician Patient Account Representative 02/13/18 documented as of this encounter
--- OUTSIDE RECORDS SUMMARY | 2024-05-03 21:57 | XMS_ITS | Encounter Summary ---
Author Organization [facility] Address [address] [place] [address] Care Team Providers Care Party Host Name Role Phone Guerrero Middleton PA-C Primary Care Provide r Reason for Visit * Reason Onset Date Comments Erroneous encounter-disregard 09/30/2018 Encounter Details Date Type Department Care Team (Late st Contact Info) Description 09/30/2018 Telephone [facility] Heart [facility] [address] [place] [address] Marlys Mayer MD [address] [place] [address] [address] [place] [address] Erroneous encounter-disregard Social History Tobacco [...] [facility] Heart [facility]ascular - [facility] [address] [place] [address] Marlys Mayer MD [address] [place] [address] documented as of this encounter Visit Diagnoses Not on filedocumented in this encounter Care Teams Party Host Relationship Specialty Start Date End Date Guerrero Middleton PA-C PCP - General Physician Tawer 02/13/18 documented as of this encounter
--- OUTSIDE RECORDS SUMMARY | 2024-05-03 21:57 | XMS_ITS | Encounter Summary ---
Author Organization [facility] Address [address] [place] [address] Care Team Providers Care Pulmonary Care Nurse Name Role Phone Guerrero Middleton PA-C Primary Care Provide r Reason for Visit * Reason Comments Abdominal Pain Pt ambulatory to ED with complaint of LUQ abdominal pain, radiating into back, headache, nasuea, general fatigue x 2 days. Pt Hx of Pancreatitis. * Auth/Cert Specialty Diagnoses / Procedures Referred By Tequila t Referred To Contact [facility] Medical Surgical [address] [place] [address] Referral ID Status Reason Start Date Expiration Date Visits Re quested Visits Authorized [id number] 1 1 Encounter Details Date Type Department Care Team (Latest Contact Info) Description 06/29/2018 7:39 PM POLLUTION CONTROL ENGINEER - 07/03/2018 2:43 PM POLLUTION CONTROL ENGINEER Hospital Encounter [facility] [address] [place] [address] Eva Duran MD NO ADDRESS ON FILE Pernell Tapia MD [address] [place] [address] Niki Davenport MD [address] [place] [address] Evan Hernandez MD [address] [facility] [address] [place] [address] Chylomicronemia syndrome Discharge Disposition: Home [...] Comments Blood Pressure 120/72 07/03/2018 10:55 AM POLLUTION CONTROL ENGINEER Pulse 81 07/03/2018 3:21 AM POLLUTION CONTROL ENGINEER Temperature 36.8 ??C (98.2 ??F) 07/03/2018 10:[address] Respiratory Rate 12 07/03/2018 10:55 AM POLLUTION CONTROL ENGINEER Oxygen Saturation 97% 07/03/2018 10:55 AM POLLUTION CONTROL ENGINEER Inhaled Oxygen Concentration - - Weight 92.5 kg (204 lb) 06/30/2018 12:52 AM POLLUTION CONTROL ENGINEER Height 165.1 cm (5' 5 ) 06/30/2018 12:52 AM POLLUTION CONTROL ENGINEER Body Mass Index 33.95 06/30/2018 12:52 AM POLLUTION CONTROL ENGINEER documented in this encounter Discharge Summaries * Evan Hernandez MD - 07/03/2018 4:31 PM CST [facility] Discharge Summary Patient Name: Casandra Jones / [...] received plasmapheresis in the past. Consulted her offbearer Dr. Rdud. Initially started on insulin drip. Endocrinology has stopped insulin drip on 07/02/2018. Discussed with endocrinology 07/03/2018, okay to discharge home. PRN p.o. Percocet for pain. ?? 2. ?Hypertriglyceridemia -has had marked hypertriglyceridemia in the past and has had a plasmapheresis as well. ??Patient reports that she was planning on seeing an offbearer at [facility] but has not yet done so. - [...] and at bedtime. Refills: 0 Generic drug: liispuo-vnkpgy-kpeyyvir DR dicyclomine 10 mg capsule Commonly known [...] by mouth 2 times daily. Refills: 0 Wajhv8-YneF7-I87-E-FA-Fish Oil [phone] pn-ih-kzc-mcg Capsule Take 2 Caplets by mouth 2 [...] Your Medications These [address] [facility] [address] Hours: Saturday-Saturday: 8 a.m. - 8 p.m., [...] or more than 200, please notify your offbearer Dr. Rudd. Endocrinology follow-up with Dr. Rudd in 1-2 weeks. . Please call for an appointment. Code Status At time of Discharge: Full Code More than 35 minutes were spent in this discharge activity. Signed: Evan Hernandez MD 07/03/2018, 4:31 PM UTION CONTROL ENGINEER documented in this encounter Discharge Instructions * Discharge Instructions* Evan Hernandez MD - 07/03/2018 10:02 AM POLLUTION CONTROL ENGINEER FOLLOW-UP Follow up with Guerrero Middleton PA-C in one week. Please check your blood sugars with each meal and at bedtime. If blood sugar less than 80 or more than 200, please notify your offbearer Dr. Rudd. Endocrinology follow-up with Dr. Rudd in 1-2 weeks. . Please call for an appointment. Prescriptions given: Y SIGNS AND SYMPTOMS TO REPORT Contact your health care provider if you experience any of the following symptoms: chest pain, shortness of breath, dizziness, nausea, vomiting, diarrhea, abdominal pain, fever > 101 or any other concerning symptoms. Smoking Exposure: [facility] encourages all patients to decrease risks associated with smoking and second hand smoke exposure. If you smoke you are advised to quit. Ask your health care provider for advice if you need assistance to stop smoking. Avoid second-hand smoke exposure and do not let people smoke in your home. Please call [phone], our pulmonary rehabilitation department, to learn more about options to reduce your risks. ACTIVITY Your activity level is: as tolerated. DIET Your diet is: Diabetic diet UTION CONTROL ENGINEER documented in this encounter Medications at [...] by mouth 2 times daily . 09/26/2023 Udwfe6-BtmQ3-M12-E-F A-Fish Oil [phone] rh-jx-axe-mcg Capsule Take 2 Caplets by mouth 2 [...] Damico MD - 07/02/2018 10:36 PM CST [facility] Called for: Complaints of [...] assistance. Lalita Damico MD Submit an eTicket UTION CONTROL ENGINEER * Evan Hernandez MD - 07/02/2018 3:45 PM CST [facility]3] Adult Hospitalist Progress Note Admit Date: 06/29/2018 [...] down to less than 500. Consulted her offbearer Dr. Rudd. Endocrinology has a stopped insulin drip on 07/02/2018. Repeat serum triglycerides in a.m. Check a CMP and lipase in a.m. Follow further recommendations from endocrinology. ?? 2. Hypertriglyceridemia -has had marked hypertriglyceridemia in the past and has had a plasmapheresis as well. Patient reports that she was planning on seeing an offbearer at [facility] but has not yet done so. - [...] lab and test results. Evan Hernandez MD [facility] Pager On-call pager [phone] UTION CONTROL ENGINEER * Nery Viramontes NP - 07/02/2018 1:59 [...] Units subCUT TID Meals Sidberry, Nery L, GAS MAKER HELPER ??? insulin lispro (HumaLOG) variable dose injection subCUT TID Meals Sidsteven, Nery L, GAS MAKER HELPER ??? insulin lispro (HumaLOG) variable dose injection subCUT Daily BEDTIME Sidberry, Nery L, GAS MAKER HELPER ??? insulin glargine (LANTUS) injection 12 Units 12 Units subCUT Daily Breakfast Wander, Nery L, GAS MAKER HELPER 12 Units at 07/02/18 1202 ??? [DISCONTINUED] insulin glargine (LANTUS) injection 12 Units 12 Units subCUT See Admin Notes Nery Viramontes NP ??? niacin (NIACOR) tablet 500 mg 500 mg Oral BID Evan Hernandez MD 500 mg at 07/02/18 0816 ??? Fish Oil-Bogue Chitto-3 Fatty Acids 360-1,200 mg capsule 2 Capsule 2 Capsule Oral BID Eliane Rosado MD 2 Capsule at 07/02/18 0823 ??? [DISCONTINUED] Fish Oil-Bogue Chitto-3 Fatty Acids 360-1,200 mg capsule 1 Capsule [...] MD 1 Tablet at 07/02/18 1212 ??? xsdpfza-felyfl-uqgjiwjf DR (CREON 12) 60-12-38 per capsule 2 [...] Added fish oil 4g daily. Hypothyroidism. Continue FLORIST SUPPLIES SALESPERSON Levothyroxine dose. Recommendations were discussed with Dr. Rudd, patient and nursing staff. Please page with questions. STELLA Bright CDE [phone] UTION CONTROL ENGINEER * Nery Viramontes NP - 07/02/2018 9:50 AM CST Name: Casandra oJnes : 1975 Date: 07/02/2018 Room/Bed: [facility] Hospital Day: LOS: 1 day Full note to follow. Orders placed for transition to sub-q insulin. 12 units Lantus, discontinue the insulin gtt 2 hours later. 3 units Humalog with meals. Correction ACHS POC BS ACHS Spoke with patient's RN. Diabetic, low fat diet. Please page with questions. STELLA Bright E BA [phone] UTION CONTROL ENGINEER * Evan Hernandez MD - 07/01/2018 2:37 PM CST [facility]3] Adult Hospitalist Progress Note Admit Date: 06/29/2018 [...] with insulin. Monitor triglyceride levels. Consulted her offbearer Dr. Rudd. ?? 2. Hypertriglyceridemia -has had marked hypertriglyceridemia in the past and has had a plasmapheresis as well. Patient reports that she was planning on seeing an offbearer at [facility] but has not yet done so. - [...] lab and test results. Evan Hernandez MD [facility] Hospitalist Pager [phone] On-call pager [phone] UTION CONTROL ENGINEER * Lilo Back NP - 06/30/2018 11:02 PM CST [facility] Cross Cover Call Called for: [...] assistance. LILO BACK NP Submit an eTicket UTION CONTROL ENGINEER * Lalita Damico MD - 06/30/2018 9:28 PM CST [facility] Cross Cover Call Called for: [...] assistance. Lalita Damico MD Submit an eTicket UTION CONTROL ENGINEER * Niki Davenport MBBS - 06/30/2018 6:45 PM CST TGL level trending up. FSBG in 80s. Increased d5-0.45 150cc/hr. Informed RN to start insulin drip once FSBG >150. Niki Davenport MD, Hospitalist. Pager:[phone] UTION CONTROL ENGINEER * Lenka Van RN - 06/30/2018 5:31 PM CST Paged Hospitalist regards to patient insulin drip question and fluids infusing. UTION CONTROL ENGINEER * Eda Felipe RN - 06/30/2018 4:35 PM CST Undress and Assess performed by: Eda OLGUIN & Rosalva PCT Admission or upon transfer to: [place] [id number] ~~~~~~~~~~~~~~~~~~~~~~~~~~~~ Is the patient a paraplegic/quadriplegic? NO [...] removed from patient none Disposition of belongings/valuables: UTION CONTROL ENGINEER * Niki Davenport MBBS - 06/30/2018 2:32 [...] every 12 hours. Niki Davenport MD, Hospitalist. Pager:[phone] UTION CONTROL ENGINEER * Stephy Reese RN - 06/30/2018 1:20 PM CST Pt has c/o itching ronaldo CARNEY for benadryl. Pt is NPO at this time, waiting for MRCP. UTION CONTROL ENGINEER documented in this encounter H&P Notes * Pernell Tapia MD - 06/30/2018 1:31 AM CST [facility]3] Adult Hospitalist Admission H & P Patient [...] HYSTERECTOMY partial due to endometriosis 2006 ??? UT ESOPHAGOGASTRODUODENOSCOPY TRANSORAL DIAGNOSTIC N/A 03/08/2018 ESOPHAGOGASTRODUODENOSCOPY performed by Ceasar Vega MD at [facility] Current Medications: Prior to Admission Medications Prescriptions Last Dose Informant Patient Reported? Taking? LORazepam (ATIVAN) 1 mg tablet 06/29/2018 at Unknown time Yes Yes Sig: Take 1 mg by mouth 2 times daily as needed for Anxiety . Lwiiu4-FazV2-P09-E-FA-Fish Oil [phone] vv-bu-now-mcg Capsule 06/29/2018 at 0900 No Yes Sig: Take 2 Caplets by mouth 2 times daily. rbuyaby-pjnssu-nfandetc DR (AMELIA) 60-12-38 capsule 06/29/2018 at 1700 [...] that she was planning on seeing an offbearer at [facility] but has not yet done so. -Check [...] questions to their satisfaction. Pernell Tapia MD UTION CONTROL ENGINEER documented in this encounter Consult Notes [...] 500 mg at 07/01/18 1718 ??? Fish Oil-Bogue Chitto-3 Fatty Acids 360-1,200 mg capsule 2 Capsule 2 Capsule Oral BID Eliane Rosado MD ??? [DISCONTINUED] Fish Oil-Bogue Chitto-3 Fatty Acids 360-1,200 mg capsule 1 Capsule [...] MD 1 Tablet at 07/01/18 1600 ??? sbpgjer-ijwaba-xdsvrrtk DR (CREON 12) 60-12-38 per capsule 2 [...] sodium chloride 0.45% infusion IV Continuous Niki Davneport MBBS 150 mL/hr at07/01/18 1800 ??? sodium [...] HYSTERECTOMY partial due to endometriosis 2006 ??? UT ESOPHAGOGASTRODUODENOSCOPY TRANSORAL DIAGNOSTIC N/A 03/08/2018 ESOPHAGOGASTRODUODENOSCOPY performed by Ceasar Vega MD at [facility] Social History Substance Use [...] and max dose fenofibrate . Pt seen slat grader in the past/ Will add fish oil [...] have any questions. Sincerely, Suzi Rosado MD UTION CONTROL ENGINEER * Sergio Souza RN - 07/01/2018 10:04 AM CSTAssociated Order(s): IP CONSULT TO IV TEAM IV CONSULT: Request for IV consult. Reviewed electronic record and completed a vascular assessment. PIV startedusing US guidance x2 attempts and documented in EPIC. Bed in low position,HOB up 35 degrees,?? siderails up X2. Safety check completed. RN notified. ?? UTION CONTROL ENGINEER documented in this encounter ED Notes * Shiloh Kirkland RN - 06/30/2018 12:27 AM CST Patient/family has been informed about benefits and any potential clinically significant side effects or other concerns regarding the administration of the drug they have just been given. UTION CONTROL ENGINEER * Shiloh Kirkland RN - 06/30/2018 12:19 AM CST Report called to receiving RN, questions and concerns answered at this time. Transport requested totake patient to new room assignment. UTION CONTROL ENGINEER * Shiloh Kirkland RN - 06/29/2018 10:48 PM CST Patient resting quietly on stretcher. Patient denies any new complaints at this time. Respirations even and unlabored, equal rise and fall of the chest noted. Call light within patient's reach. UTION CONTROL ENGINEER * Shiloh Kirkland RN - 06/29/2018 9:46 PM CST Patient resting quietly on stretcher. Patient denies any new complaints at this time. Respirations even and unlabored, equal rise and fall of the chest noted. Call light within patient's reach. UTION CONTROL ENGINEER * Shiloh Kirkland RN - 06/29/2018 9:17 PM CST Patient/family has been informed about benefits and any potential clinically significant side effects or other concerns regarding the administration of the drug they have just been given. UTION CONTROL ENGINEER * Shiloh Kirkland RN - 06/29/2018 8:50 [...] the chest noted. Pt placed on continuous telemetry monitor, NIBP and pulse ox. Skin PWD. Call light within reach, VSS, NAD at this time. Family at bedside. UTION CONTROL ENGINEER * Shiloh Kirkland RN - 06/29/2018 8:22 PM CST MD Duran at bedside UTION CONTROL ENGINEER * Karen Hassan RN - 06/29/2018 7:18 PM CST We promote safety at our facility and do not allow any type of weapon in the building. Do you have a weapon or something that could be used as a weapon on you today? denied possession of any weapons or firearms at this time UTION CONTROL ENGINEER * Eva Duran MD - 06/29/2018 7:09 [...] on 06/05, after being admitted for chylomicronemia. Shuttler Car: Dr. Mayer. Pediatric Surgeon: Dr. Rudd. Physician(s): Guerrero Middleton PA-C History [...] MEDICATIONS Patient's Home Medications Current Home Medications WABNUCQ-UWMZFI-FVKVBJFG DR MAGUIRE) 60-12-38 CAPSULE CITALOPRAM (CELEXA) 40 MG TABLET DICYCLOMINE (BENTYL) 10 MG CAPSULE FENOFIBRATE (LOFIBRA) 160 MG ORAL TAB INSULIN ASPART (NOVOLOG) 100 UNIT/ML INJECTION INSULIN GLARGINE (LANTUS) 100 UNIT/ML INJECTION LEVOTHYROXINE 200 MCG TABLET LORAZEPAM (ATIVAN) 1 MG TABLET METFORMIN (GLUCOPHAGE) 500 MG TABLET NIACIN (NIACOR) 500 MG TABLET RMKBH0-FGEG1-Q92-E-FA-FISH OIL [id number] GT-AC-XVT-MCG CAPSULE ONDANSETRON (ZOFRAN ODT) 4 MG TABLET, [...] Patient is also due to go to [facility] for care of her metabolic syndrome 11:50 PM: Updated on results and offered discharge on pain meds vs admission and pt would like to be admitted. ED provider and ED nurse verbally discussed patient plan of care at this time. 11:53 PM: Discussed the patient with Dr. Tapia ([facility] Hospitalist) who will admit. [facility] Summary Statement: 42 y.o. female [...] Disposition Condition User Date/Time Comment Admit Stable Eav Duran MD Sun Jun 29, 2018 11:47 [...] and medical decision making performed by me. UTION CONTROL ENGINEER documented in this encounter Miscellaneous Notes [...] If [place] will [place], patient does not need a PASARR screening to be started (ie, prior psych admission or intensive services, MR/DD diagnosis prior to the age of 22). Readmission Risk (patient becomes high risk with a score of 8 or greater) 5 Total Score 5 Prior Hospitalizations Primary Emergency Contact: José Miguel Jones, PCP verified as Guerrero Middleton PA-C. Patient's insurance verified as Payor: [employer] / Plan: ALL SAVERS CHOICE / Product Type: Commercial / [facility] [address] [place] [address] Discussed discharge goals and possible discharge needs including discharge to home with spouse. Care Management contact information provided. Care Management will continue to follow and assist asneeded. Ceasar Louise RN, BSN Relief Man [id number] UTION CONTROL ENGINEER * Care Plan - Justo Rizvi RN - 06/30/2018 6:18 AM CST Pt complaining of abdominal qasim nthat is minimally improved with PRN pain meds. No n/v. VSS. Will continue to monitor. [facility]: Adult and Obstetrics Day 1 ??? [...] of fall, injury, harm during hospitalization Progressing UTION CONTROL ENGINEER * Care Plan - Justo Rizvi RN - 06/30/2018 2:14 AM CST Undress and Assess performed by: Justo OLGUINcontrols project engineer or upon transfer to: [facility] ~~~~~~~~~~~~~~~~~~~~~~~~~~~~ Is the patient a [...] removed from patient none Disposition of belongings/valuables: UTION CONTROL ENGINEER documented in this encounter Plan of Treatment Upcoming Encounters Date Type Department Care Team (Late st Contact Info) Description 09/14/2024 3:00 PM CDT Office Visit [facility] [address] [address] [place] [address] Marlys Mayer MD [address] [place], [place] [id number] documented as of this encounter Procedures Procedure Name Priority Date/Time Associated Diagnosis Comments POC GLUCOSE Routine 07/03/2018 10:43 AM POLLUTION CONTROL ENGINEER TRIGLYCERIDE Routine 07/03/2018 3:32 AM POLLUTION CONTROL ENGINEER COMPREHENSIVE METABOLIC PANEL Routine 07/03/2018 3:32 AM POLLUTION CONTROL ENGINEER LIPASE Routine 07/02/2018 11:52 PM POLLUTION CONTROL ENGINEER POC GLUCOSE Routine 07/02/2018 9:53 PM POLLUTION CONTROL ENGINEER POC GLUCOSE Routine 07/02/2018 4:51 PM POLLUTION CONTROL ENGINEER POC GLUCOSE Routine 07/02/2018 1:02 PM POLLUTION CONTROL ENGINEER POC GLUCOSE Routine 07/02/2018 12:00 PM POLLUTION CONTROL ENGINEER POC GLUCOSE Routine 07/02/2018 11:02 AM POLLUTION CONTROL ENGINEER POC GLUCOSE Routine 07/02/2018 10:05 AM POLLUTION CONTROL ENGINEER POC GLUCOSE Routine 07/02/2018 8:58 AM POLLUTION CONTROL ENGINEER POC GLUCOSE Routine 07/02/2018 8:09 AM POLLUTION CONTROL ENGINEER POC GLUCOSE Routine 07/02/2018 6:58 AM POLLUTION CONTROL ENGINEER POC GLUCOSE Routine 07/02/2018 6:10 AM POLLUTION CONTROL ENGINEER CBC WITH DIFFERENTIAL Routine 07/02/2018 5:16 AM POLLUTION CONTROL ENGINEER TRIGLYCERIDE Routine 07/02/2018 5:16 AM POLLUTION CONTROL ENGINEER BASIC METABOLIC PANEL Routine 07/02/2018 5:16 AM POLLUTION CONTROL ENGINEER POC GLUCOSE Routine 07/02/2018 5:02 AM POLLUTION CONTROL ENGINEER POC GLUCOSE Routine 07/02/2018 4:03 AM POLLUTION CONTROL ENGINEER POC GLUCOSE Routine 07/02/2018 3:02 AM POLLUTION CONTROL ENGINEER POC GLUCOSE Routine 07/02/2018 2:07 AM POLLUTION CONTROL ENGINEER POC GLUCOSE Routine 07/02/2018 1:25 AM POLLUTION CONTROL ENGINEER POC GLUCOSE Routine 07/01/2018 11:59 PM POLLUTION CONTROL ENGINEER POC GLUCOSE Routine 07/01/2018 11:03 PM POLLUTION CONTROL ENGINEER POC GLUCOSE Routine 07/01/2018 10:04 PM POLLUTION CONTROL ENGINEER POC GLUCOSE Routine 07/01/2018 9:19 PM POLLUTION CONTROL ENGINEER POC GLUCOSE Routine 07/01/2018 8:02 PM POLLUTION CONTROL ENGINEER POC GLUCOSE Routine 07/01/2018 7:18 PM POLLUTION CONTROL ENGINEER POC GLUCOSE Routine 07/01/2018 6:28 PM POLLUTION CONTROL ENGINEER POC GLUCOSE Routine 07/01/2018 5:18 PM POLLUTION CONTROL ENGINEER POC GLUCOSE Routine 07/01/2018 4:11 PM POLLUTION CONTROL ENGINEER POC GLUCOSE Routine 07/01/2018 3:06 PM POLLUTION CONTROL ENGINEER POC GLUCOSE Routine 07/01/2018 2:04 PM POLLUTION CONTROL ENGINEER POC GLUCOSE Routine 07/01/2018 1:03 PM POLLUTION CONTROL ENGINEER POC GLUCOSE Routine 07/01/2018 12:14 PM POLLUTION CONTROL ENGINEER POC GLUCOSE Routine 07/01/2018 11:01 AM POLLUTION CONTROL ENGINEER POC GLUCOSE Routine 07/01/2018 9:20 AM POLLUTION CONTROL ENGINEER CBC WITH DIFFERENTIAL Routine 07/01/2018 3:08 AM POLLUTION CONTROL ENGINEER TRIGLYCERIDE Routine 07/01/2018 3:08 AM POLLUTION CONTROL ENGINEER BASIC METABOLIC PANEL Routine 07/01/2018 3:08 AM POLLUTION CONTROL ENGINEER POC GLUCOSE Routine 07/01/2018 1:41 AM POLLUTION CONTROL ENGINEER POC GLUCOSE Routine 06/30/2018 8:49 PM POLLUTION CONTROL ENGINEER POC GLUCOSE Routine 06/30/2018 5:00 PM POLLUTION CONTROL ENGINEER TRIGLYCERIDE Routine 06/30/2018 5:00 PM POLLUTION CONTROL ENGINEER POC GLUCOSE Routine 06/30/2018 1:15 PM POLLUTION CONTROL ENGINEER POC GLUCOSE Routine 06/30/2018 8:41 AM POLLUTION CONTROL ENGINEER CBC WITH DIFFERENTIAL Routine 06/30/2018 6:11 AM POLLUTION CONTROL ENGINEER TRIGLYCERIDE Routine 06/30/2018 6:11 AM POLLUTION CONTROL ENGINEER BASIC METABOLIC PANEL Routine 06/30/2018 6:11 AM POLLUTION CONTROL ENGINEER DRUG SCREEN, URINE Stat 06/29/2018 8: 24 PM POLLUTION CONTROL ENGINEER URINALYSIS W/REFLEX MICROSCOPIC Stat 06/29/2018 8:23 PM POLLUTION CONTROL ENGINEER CBC WITH DIFFERENTIAL Stat 06/29/2018 8:17 PM POLLUTION CONTROL ENGINEER PROTIME-INR Stat 06/29/2018 8:17 PM POLLUTION CONTROL ENGINEER C-REACTIVE PROTEIN Stat 06/29/2018 8: 17 PM POLLUTION CONTROL ENGINEER LIPASE Stat 06/29/2018 8:17 PM POLLUTION CONTROL ENGINEER HEMOGLOBIN A1C Stat 06/29/2018 8:17 PM POLLUTION CONTROL ENGINEER COMPREHENSIVE METABOLIC PANEL Stat 06/29/2018 8:17 PM POLLUTION CONTROL ENGINEER documented in this encounter Results * (ABNORMAL) POC GLUCOSE (07/03/2018 10:43 AM POLLUTION CONTROL ENGINEER) GLUCOSE POC 150(H) 74 - 99 mg/dL 07/03/2018 10:56 AM POLLUTION CONTROL ENGINEER [facility] YARD COUPLER NAME POC RICKI EDUARDO 07/03/2018 10:56 AM POLLUTION CONTROL ENGINEER [facility] Whole blood specimen (specimen) 07/03/2018 10:43 AM POLLUTION CONTROL ENGINEER 07/03/2018 10:56 AM POLLUTION CONTROL ENGINEER Evan Hernandez MD POINT OF CARE TESTIN G [facility] CLIA# [id number] [address] [facility] [facility] [address] [place] [id number] * (ABNORMAL) TRIGLYCERIDE (07/03/2018 3:32 AM POLLUTION CONTROL ENGINEER) TRIGLYCERIDE 572(H) <150 mg/dL 07/03/2018 6:18 AM [facility] [employer] [facility] Blood Venipuncture / Unknown 07/03/2018 3:32 AM POLLUTION CONTROL ENGINEER 07/03/2018 5:12 AM POLLUTION CONTROL ENGINEER [facility] LABORATORY SERVICES - . [place] - 07/03/2018 6:18 AM POLLUTION CONTROL ENGINEER TRIGLYCERIDES ? mg/dL Normal ?< 150 Borderline High ?150 - 199 High ? 200 - 499 Very High ? >= 500 Based on AHA/NCEP Guidelines. Evan Hernandez MD CHEMISTRY ORDERABLES [facility] [employer] [facility] CLIA# [id number] [address] [place] [address] * (ABNORMAL) COMPREHENSIVE METABOLIC PANEL (07/03/2018 3:32 AM POLLUTION CONTROL ENGINEER) SODIUM 138 136 - 145 mmol/L 07/03/2018 6:18 AM [facility] [employer] - . [place] POTASSIUM 4.2 3.5 - 5.0 mmol/L 07/03/2018 6:18 AM [facility] [employer] SERVICES - [facility] CHLORIDE 103 98 - 107 mmol/L 07/03/2018 6:18 AM [facility] - [facility] CO2 25 22 - 29 mmol/L 07/03/2018 6:18 AM [facility] - . [place] CALCIUM 8.5(L) 8.6 - 10.2 mg/dL 07/03/2018 6:18 AM [facility] - [facility] BUN 6 6 - 20 mg/dL 07/03/2018 6:18 AM [facility] - [facility] CREATININE 0.58 0.51 - 0.95 mg/dL 07/03/2018 6:18 AM [facility] - . [place] GLUCOSE 174(H) 74 - 99 mg/dL 07/03/2018 6:18 AM [facility] [employer] [facility]. [place] TOTAL PROTEIN 5.7(L) 6.7 - 8.6 g/dL 07/03/2018 6:18 AM [facility] [employer] [facility] ALBUMIN 3.6 3.5 - 5.2 g/dL 07/03/2018 6:18 AM [facility] [employer] [facility] BILIRUBIN TOTAL <0.2(L) 0.3 - 1.2 mg/dL 07/03/2018 6:18 AM [facility] [employer] [facility] ALKALINE PHOSPHATASE 51 35 - 104 U/L 07/03/2018 6:18 AM [facility] [employer] [facility] AST 11 <33 U/L 07/03/2018 6:18 AM [facility] [employer] [facility] ALT 9 <34 U/L 07/03/2018 6:18 AM [facility] [employer] [facility] GFR >60 >=60 mL/min/1.7 3 sq meter 07/03/2018 6:18 AM [facility] [employer] [facility] Comment: eGFR has not [...] mL/min/1.7 3 sq meter 07/03/2018 6:18 AM [facility] [employer] [facility] ANION GAP 10 8 - 16 mmol/L 07/03/2018 6:18 AM [facility] [employer] [facility] Blood Venipuncture / Unknown 07/03/2018 3:32 AM POLLUTION CONTROL ENGINEER 07/03/2018 5:[address] [facility] [employer] [facility] - 07/03/2018 6:18 AM [facility] Samples containing indocyanine green cause interferences on Total and/or Direct Bilirubin and must not be measured. Evan Hernandez MD CHEMISTRY ORDERABLES [facility] [employer] [facility]# [id number] [address] [place] [address] * LIPASE (07/02/2018 11:52 PM POLLUTION CONTROL ENGINEER) LIPASE 18 13 - 60 U/L 07/03/2018 12:30 AM POLLUTION CONTROL ENGINEER [facility] LABORATORY [facility] Blood Venipuncture / Unknown 07/02/2018 11:52 PM POLLUTION CONTROL ENGINEER 07/02/2018 11:58 PM POLLUTION CONTROL ENGINEER Evan Hernandez MD CHEMISTRY ORDERABLES Performing Organization Address [facility]/ZIP Co de Phone Number [facility] CLIA# [id number] [address] [place] [address] * (ABNORMAL) POC GLUCOSE (07/02/2018 9:53 PM POLLUTION CONTROL ENGINEER) GLUCOSE POC 211(H) 74 - 99 mg/dL 07/02/2018 10:12 PM [facility] YARD COUPLER NAME POC YAMIL MILAN 07/02/2018 10:12 PM POLLUTION CONTROL ENGINEER [facility] Whole blood specimen (specimen) 07/02/2018 9:53 PM POLLUTION CONTROL ENGINEER 07/02/2018 10:12 PM POLLUTION CONTROL ENGINEER Evan Hernandez MD POINT OF CARE TESTIN G Performing Organization Address [facility] Co de Phone Number [facility]# [id number] [address] [place] [address] * (ABNORMAL) POC GLUCOSE (07/02/2018 4:51 PM POLLUTION CONTROL ENGINEER) GLUCOSE POC 193(H) 74 - 99 mg/dL 07/02/2018 5:08 PM POLLUTION CONTROL ENGINEER [facility] LABOR[facility] YARD COUPLER NAME POC PELON (park-CONOR) LUISA 07/02/2018 5:08 PM POLLUTION CONTROL ENGINEER [facility] Whole blood specimen (specimen) 07/02/2018 4:51 PM POLLUTION CONTROL ENGINEER 07/02/2018 5:08 PM POLLUTION CONTROL ENGINEER Evan Hernandez MD POINT OF CARE TESTJERONIMO G Performing Organization Address [facility]/ZIP Co de Phone Number [facility]# [id number] [address] [place] [address] * (ABNORMAL) POC GLUCOSE (07/02/2018 1:02 PM POLLUTION CONTROL ENGINEER) GLUCOSE POC 183(H) 74 - 99 mg/dL 07/02/2018 1:18 PM POLLUTION CONTROL ENGINEER [facility] YARD COUPLER NAME POC EDA ESPARZA 07/02/2018 1:18 PM POLLUTION CONTROL ENGINEER [facility] Whole blood specimen (specimen) 07/02/2018 1:02 PM POLLUTION CONTROL ENGINEER 07/02/2018 1:18 PM POLLUTION CONTROL ENGINEER Evan Hernandez MD POINT OF CARE TESTJERONIMO Serrano Performing Organization Address [facility] Co de Phone Number [facility] [employer] [facility]# [id number] [address] [place] [address] * (ABNORMAL) POC GLUCOSE (07/02/2018 12:00 PM POLLUTION CONTROL ENGINEER) GLUCOSE POC 198(H) 74 - 99 mg/dL 07/02/2018 12:13 PM POLLUTION CONTROL ENGINEER [facility] YARD COUPLER NAME POC TAVARES GUZMAN 07/02/2018 12:13 PM POLLUTION CONTROL ENGINEER [facility] Whole blood specimen (specimen) 07/02/2018 12:00 PM POLLUTION CONTROL ENGINEER 07/02/2018 12:12 PM POLLUTION CONTROL ENGINEER Evan Hernandez MD POINT OF CARE TESTJERONIMO G Performing Organization Address [facility]/ZIP Co de Phone Number [facility] [employer] [facility]# [id number] [address] [place] [address] * (ABNORMAL) POC GLUCOSE (07/02/2018 11:02 AM POLLUTION CONTROL ENGINEER) GLUCOSE POC 153(H) 74 - 99 mg/dL 07/02/2018 11:16 AM POLLUTION CONTROL ENGINEER [facility] YARD COUPLER NAME POC TAVARES GUZMAN 07/02/2018 11:16 AM POLLUTION CONTROL ENGINEER [facility] Whole blood specimen (specimen) 07/02/2018 11:02 AM POLLUTION CONTROL ENGINEER 07/02/2018 11:16 AM POLLUTION CONTROL ENGINEER Evan Hernandez MD POINT OF CARE FLY Serrano Performing Organization Address [facility]/ZIP Co de Phone Number [facility] CLCT# [id number] [address] [place] [address] * (ABNORMAL) POC GLUCOSE (07/02/2018 10:05 AM POLLUTION CONTROL ENGINEER) GLUCOSE POC 133(H) 74 - 99 mg/dL 07/02/2018 10:45 AM POLLUTION CONTROL ENGINEER [facility] [employer] [facility] YARD COUPLER NAME POC EDA ESPARZA 07/02/2018 10:45 AM POLLUTION CONTROL ENGINEER [facility] Whole blood specimen (specimen) 07/02/2018 10:05 AM POLLUTION CONTROL ENGINEER 07/02/2018 10:45 AM POLLUTION CONTROL ENGINEER Evan Hernandez MD POINT OF CARE FLY Serrano Performing Organization Address [facility] Co de Phone Number [facility] [employer] [facility] CLIA# [id number] [address] [place] [address] * (ABNORMAL) POC GLUCOSE (07/02/2018 8:58 AM POLLUTION CONTROL ENGINEER) GLUCOSE POC 112(H) 74 - 99 mg/dL 07/02/2018 10:44 AM POLLUTION CONTROL ENGINEER [email or web address] YARD COUPLER NAME POC EDA ESPARZA 07/02/2018 10:44 AM POLLUTION CONTROL ENGINEER [facility] Whole blood specimen (specimen) 07/02/2018 8:58 AM POLLUTION CONTROL ENGINEER 07/02/2018 10:44 AM POLLUTION CONTROL ENGINEER Evan Hernandez MD POINT OF CARE FLY Serrano Performing Organization Address City/[facility]/ZIP Co de Phone Number [facility] [employer] [facility] CLIA# [id number] [address] [place] [address] * POC GLUCOSE (07/02/2018 8:09 AM POLLUTION CONTROL ENGINEER) GLUCOSE POC 90 74 - 99 mg/dL 07/02/2018 10:42 AM POLLUTION CONTROL ENGINEER [facility] LABORATORY [facility] YARD COUPLER NAME POC ROSALVA BROWN 07/02/2018 10:42 AM POLLUTION CONTROL ENGINEER [facility] LABOR[facility] Whole blood specimen (specimen) 07/02/2018 8:09 AM POLLUTION CONTROL ENGINEER 07/02/2018 10:42 AM POLLUTION CONTROL ENGINEER Evan Hernandez MD POINT OF CARE FLY Serrano Performing Organization Address [facility]/ZIP Co de Phone Number [facility] [employer] [facility] CLIA# [id number] [address] [place] [address] * (ABNORMAL) POC GLUCOSE (07/02/2018 6:58 AM POLLUTION CONTROL ENGINEER) GLUCOSE POC 106(H) 74 - 99 mg/dL 07/02/2018 10:40 AM POLLUTION CONTROL ENGINEER [facility] LAB[facility] YARD COUPLER NAME POC YAMIL MILAN 07/02/2018 10:40 AM POLLUTION CONTROL ENGINEER [facility] LAB[facility] Whole blood specimen (specimen) 07/02/2018 6:58 AM POLLUTION CONTROL ENGINEER 07/02/2018 10:40 AM POLLUTION CONTROL ENGINEER Evan Hernandez MD POINT OF CARE TESTJERONIMO Serrano Performing Organization Address City/[facility]/ZIP Co de Phone Number [facility] [employer] [facility] CLIA# [id number] [address] [place] [address] * (ABNORMAL) POC GLUCOSE (07/02/2018 6:10 AM POLLUTION CONTROL ENGINEER) GLUCOSE POC 117(H) 74 - 99 mg/dL 07/02/2018 6:22 AM POLLUTION CONTROL ENGINEER [facility] LABORATORY [facility] YARD COUPLER NAME POC KENIA QUIROZ 07/02/2018 6:22 AM [facility] [employer] [facility] Whole blood specimen (specimen) 07/02/2018 6:10 AM POLLUTION CONTROL ENGINEER 07/02/2018 6:22 AM POLLUTION CONTROL ENGINEER Evan Hernandez MD POINT OF CARE TESTIN G Performing Organization Address [facility] de Phone Number [facility]# [id number] [address] [place] [address] * (ABNORMAL) TRIGLYCERIDE (07/02/2018 5:16 AM POLLUTION CONTROL ENGINEER) TRIGLYCERIDE 933(H) <150 mg/dL 07/02/2018 6:46 AM [facility] [employer] [facility] Blood Venipuncture / Unknown 07/02/2018 5:16 AM POLLUTION CONTROL ENGINEER 07/02/2018 5:23 AM POLLUTION CONTROL ENGINEER Narrative [facility] [employer] [facility] - 07/02/2018 6:46 AM POLLUTION CONTROL ENGINEER TRIGLYCERIDES ? mg/dL Normal ?< 150 Borderline High ?150 - 199 High ? 200 - 499 Very High ? >= 500 Based on AHA/NCEP Guidelines. Evan Hernandez MD CHEMISTRY ORDERABLES Performing Organization Address [facility] Phone Number [facility] [employer] [facility]# [id number] [address] [place] [address] * (ABNORMAL) BASIC METABOLIC PANEL (07/02/2018 5:16 AM POLLUTION CONTROL ENGINEER) Pathologist [facility] SODIUM 139 136 - 145 mmol/L 07/02/2018 6:20 AM [facility] [employer] [facility] POTASSIUM 4.1 3.5 - 5.0 mmol/L 07/02/2018 6:20 AM [facility] [employer] [facility] Comment: Slightly hemolyzed. Result may be falsely elevated. CHLORIDE 105 98 - 107 mmol/L 07/02/2018 6:20 AM [facility] [employer] [facility] CO2 24 22 - 29 mmol/L 07/02/2018 6:20 AM [facility] [employer] [facility] CALCIUM 8.6 8.6 - 10.2 mg/dL 07/02/2018 6:20 AM [facility] [employer] [facility] BUN 7 6 - 20 mg/dL 07/02/2018 6:20 AM [facility] [employer] [facility] CREATININE 0.59 0.51 - 0.95 mg/dL 07/02/2018 6:20 AM [facility] [employer] [facility] GLUCOSE 128(H) 74 - 99 mg/dL 07/02/2018 6:20 AM [facility] [employer] [facility] GFR >60 >=60 mL/min/1.7 3 sq meter 07/02/2018 6:20 AM [facility] [employer] [facility] Comment: eGFR has not [...] mL/min/1.7 3 sq meter 07/02/2018 6:20 AM [facility] [employer] [facility] ANION GAP 10 8 - 16 mmol/L 07/02/2018 6:20 AM [facility] [employer] [facility] Blood Venipuncture / Unknown 07/02/2018 5:16 AM POLLUTION CONTROL ENGINEER 07/02/2018 5:23 AM POLLUTION CONTROL ENGINEER Niki Davenport MD CHEMISTRY ORDERABLES [facility] [employer] [facility]# [id number] [address] [facility] [place] [place] [address] * (ABNORMAL) CBC WITH DIFFERENTIAL (07/02/2018 5:16 AM POLLUTION CONTROL ENGINEER) Pathologist [facility] [place] WBC 5.9 4.0 - 9.8 K/uL 07/02/2018 5:38 AM POLLUTION CONTROL ENGINEER [employer] [facility] RBC 3.58(L) 3.90 - 4.90 M/uL 07/02/2018 5:38 AM [facility] [employer] [facility] HEMOGLOBIN 10.8(L) 11.8 - 14.8 g/dL 07/02/2018 5:38 AM [employer] [facility] HEMATOCRIT 33.2(L) 35.5 - 44.0 % 07/02/2018 5:38 AM [facility] MCV 92.7 82.0 - 99.0 fL 07/02/2018 5:38 AM [facility] MCH 30.2 27.2 - 32.6 pg 07/02/2018 5:38 AM [facility] MCHC 32.5 31.5 - 35.5 g/dL 07/02/2018 5:38 AM [facility] RDW 13.9 11.5 - 14.5 % 07/02/2018 5:38 AM [facility] RDW-STDEV 47.8 37.1 - 48.7 fL 07/02/2018 5:38 AM [facility] PLATELETS 201 140 - 350 K/uL 07/02/2018 5:38 AM [employer] [facility] MPV 9.1(L) 9.3 - 12.4 fL 07/02/2018 5:38 AM [facility] NEUTROPHILS 56 % 07/02/2018 5:38 AM [facility] - . [facility] LYMPHOCYTES 36 % 07/02/2018 5:38 AM [facility] - . [facility] MONOCYTES 7 % 07/02/2018 5:38 AM [facility] - . [facility] EOSINOPHILS 1 % 07/02/2018 5:38 AM [facility] - . [facility] BASOPHILS 0 % 07/02/2018 5:38 AM [facility] - . [facility] IMMATURE GRANULOCYTES 1 % 07/02/2018 5:38 AM [employer] [facility] - [facility] Comment:IG (Immature Granulo cyte) count includes Metamyelocytes, Myelocytes, and Promyelocytes NEUTROPHIL ABSOLUTE 3.27 1.90 - 7.00 K/uL 07/02/2018 5:38 AM [facility] - [facility] LYMPHOCYTE ABSOLUTE 2.09 0.70 - 4.50 K/uL 07/02/2018 5:38 AM [facility] LABORATORY SERVICES - . [facility] MONOCYTE ABSOLUTE 0.39 0.10 - 1.30 K/uL 07/02/2018 5:38 AM [facility] LABORATORY SERVICES - . [facility] EOSINOPHIL ABSOLUTE 0.05 0.00 - 0.70 K/uL 07/02/2018 5:38 AM [facility] LABORATORY SERVICES - . [facility] BASOPHILS ABSOLUTE 0.02 0.00 - 0.20 K/uL 07/02/2018 5:38 AM [facility] LABORATORY SERVICES - . [facility] IMMATURE GRANULOCYTES ABSOLUTE 0.03 0.00 - 0.03 K/uL 07/02/2018 5:38 AM [facility] Blood Venipuncture / Unknown 07/02/2018 5:16 AM POLLUTION CONTROL ENGINEER 07/02/2018 5:23 AM POLLUTION CONTROL ENGINEER Niki Davenport MD HEMATOLOGY ORDERABLE S [facility] [employer] [facility] CLIA# [id number] [address] [facility] [place] [address] * (ABNORMAL) POC GLUCOSE (07/02/2018 5:02 AM POLLUTION CONTROL ENGINEER) GLUCOSE POC 125(H) 74 - 99 mg/dL 07/02/2018 5:14 AM [facility] YARD COUPLER NAME POC KENIA QUIROZ 07/02/2018 5:14 AM [email or web address] Whole blood specimen (specimen) 07/02/2018 5:02 AM POLLUTION CONTROL ENGINEER 07/02/2018 5:14 AM POLLUTION CONTROL ENGINEER Evan Hernandez MD POINT OF CARE TESTIN G [facility] [employer] [facility] CLIA# [id number] [address] [place] [address] * (ABNORMAL) POC GLUCOSE (07/02/2018 4:03 AM POLLUTION CONTROL ENGINEER) GLUCOSE POC 175(H) 74 - 99 mg/dL 07/02/2018 4:15 AM POLLUTION CONTROL ENGINEER [facility] YARD COUPLER NAME KENIA LYON 07/02/2018 4:15 AM POLLUTION CONTROL ENGINEER [employer] LAB[facility]ATORY SERVICES [facility] Whole blood specimen (specimen) 07/02/2018 4:03 AM POLLUTION CONTROL ENGINEER 07/02/2018 4:15 AM POLLUTION CONTROL ENGINEER Evan Hernandez MD POINT OF CARE TESTJERONIMO Serrano [facility] LABORATORY [facility] CLIA# [id number] [address] [place] [address] * (ABNORMAL) POC GLUCOSE (07/02/2018 3:02 AM POLLUTION CONTROL ENGINEER) GLUCOSE POC 167(H) 74 - 99 mg/dL 07/02/2018 3:22 AM POLLUTION CONTROL ENGINEER [facility] LAB[facility]ORY SERVICES [facility] YARD COUPLER NAME KENIA LYON 07/02/2018 3:22 AM POLLUTION CONTROL ENGINEER [email or web address] Whole blood specimen (specimen) 07/02/2018 3:02 AM POLLUTION CONTROL ENGINEER 07/02/2018 3:22 AM POLLUTION CONTROL ENGINEER Evan Hernandez MD POINT OF CARE TESTJERONIMO Serrano [facility] [employer] [facility] CLIA# [id number] [address] [place] [address] * (ABNORMAL) POC GLUCOSE (07/02/2018 2:07 AM POLLUTION CONTROL ENGINEER) GLUCOSE POC 151(H) 74 - 99 mg/dL 07/02/2018 2:20 AM POLLUTION CONTROL ENGINEER [facility] YARD COUPLER NAME KENIA LYON 07/02/2018 2:20 AM POLLUTION CONTROL ENGINEER [facility] Whole blood specimen (specimen) 07/02/2018 2:07 AM POLLUTION CONTROL ENGINEER 07/02/2018 2:19 AM POLLUTION CONTROL ENGINEER Evan Hernandez MD POINT OF CARE TESTJERONIMO Serrano [facility] LABORATORY [facility] CLIA# [id number] [address] [place] [address] * (ABNORMAL) POC GLUCOSE (07/02/2018 1:25 AM POLLUTION CONTROL ENGINEER) GLUCOSE POC 169(H) 74 - 99 mg/dL 07/02/2018 1:38 AM POLLUTION CONTROL ENGINEER [facility] YARD COUPLER NAME POC YAMIL MILAN 07/02/2018 1:38 AM POLLUTION CONTROL ENGINEER [email or web address] Whole blood specimen (specimen) 07/02/2018 1:25 AM POLLUTION CONTROL ENGINEER 07/02/2018 1:38 AM POLLUTION CONTROL ENGINEER Evan Hernandez MD POINT OF CARE FLY Serrano Performing Organization Address [facility]/ZIP Co de Phone Number [facility] [employer] [facility] CLIA# [id number] [address] [place] [address] * (ABNORMAL) POC GLUCOSE (07/01/2018 11:59 PM POLLUTION CONTROL ENGINEER) GLUCOSE POC 177(H) 74 - 99 mg/dL 07/02/2018 12:11 AM POLLUTION CONTROL ENGINEER [facility] LAB[facility]ATORY SERVICES [facility] YARD COUPLER NAME POC KENIA QUIROZ 07/02/2018 12:11 AM POLLUTION CONTROL ENGINEER [employer] LABORATORY SERVICES [facility] Whole blood specimen (specimen) 07/01/2018 11:59 PM POLLUTION CONTROL ENGINEER 07/02/2018 12:11 AM POLLUTION CONTROL ENGINEER Evan Hernandez MD POINT OF CARE TESTJERONIMO Serrano Performing Organization Address City/[facility]/ZIP Co de Phone Number [facility] LABORATORY [facility] CLIA# [id number] [address] [place] [address] * (ABNORMAL) POC GLUCOSE (07/01/2018 11:03 PM POLLUTION CONTROL ENGINEER) GLUCOSE POC 180(H) 74 - 99 mg/dL 07/01/2018 11:18 PM POLLUTION CONTROL ENGINEER [facility] LAB[facility]AT[facility] YARD COUPLER NAME KENIA LYON 07/01/2018 11:18 PM POLLUTION CONTROL ENGINEER [facility] LAB[facility] SERVICES [facility] Whole blood specimen (specimen) 07/01/2018 11:03 PM POLLUTION CONTROL ENGINEER 07/01/2018 11:18 PM POLLUTION CONTROL ENGINEER Evan Hernandez MD POINT OF CARE TESTJERONIMO G Performing Organization Address City/[facility]/ZIP Co de Phone Number [facility]# [id number] [address] [place] [address] * (ABNORMAL) POC GLUCOSE (07/01/2018 10:04 PM POLLUTION CONTROL ENGINEER) GLUCOSE POC 158(H) 74 - 99 mg/dL 07/01/2018 10:16 PM POLLUTION CONTROL ENGINEER [facility] LAB[facility] YARD COUPLER NAME KENIA LYON 07/01/2018 10:16 PM POLLUTION CONTROL ENGINEER [facility] LAB[facility] Whole blood specimen (specimen) 07/01/2018 10:04 PM POLLUTION CONTROL ENGINEER 07/01/2018 10:16 PM POLLUTION CONTROL ENGINEER Evan Hernandez MD POINT OF CARE TESTJERONIMO G [facility] CLIA# [id number] [address] [place] [address] * (ABNORMAL) POC GLUCOSE (07/01/2018 9:19 PM POLLUTION CONTROL ENGINEER) GLUCOSE POC 171(H) 74 - 99 mg/dL 07/01/2018 9:31 PM POLLUTION CONTROL ENGINEER [facility] LAB[facility]ATORY [facility] YARD COUPLER NAME KENIA LYON 07/01/2018 9:31 PM POLLUTION CONTROL ENGINEER [facility] LAB[facility]ORY [facility] Whole blood specimen (specimen) 07/01/2018 9:19 PM POLLUTION CONTROL ENGINEER 07/01/2018 9:31 PM POLLUTION CONTROL ENGINEER Evan Hernandez MD POINT OF CARE FLY Serrano Performing Organization Address City/[facility]/ZIP Co de Phone Number [facility] LABORATORY [facility] CLIA# [id number] [address] [place] [address] * (ABNORMAL) POC GLUCOSE (07/01/2018 8:02 PM POLLUTION CONTROL ENGINEER) GLUCOSE POC 135(H) 74 - 99 mg/dL 07/01/2018 8:14 PM POLLUTION CONTROL ENGINEER [facility] LAB[facility]ATORY [facility] YARD COUPLER NAME KENIA LYON 07/01/2018 8:14 PM POLLUTION CONTROL ENGINEER [facility] LAB[facility] Whole blood specimen (specimen) 07/01/2018 8:02 PM POLLUTION CONTROL ENGINEER 07/01/2018 8:14 PM POLLUTION CONTROL ENGINEER Evan Hernandez MD POINT OF CARE FLY Serrano Performing Organization Address [facility] Co de Phone Number [facility] [employer] [facility] CLIA# [id number] [address] [place] [address] * (ABNORMAL) POC GLUCOSE (07/01/2018 7:18 PM POLLUTION CONTROL ENGINEER) GLUCOSE POC 119(H) 74 - 99 mg/dL 07/01/2018 7:30 PM POLLUTION CONTROL ENGINEER [facility] LAB[facility]ORY [facility] YARD COUPLER NAME KENIA LYON 07/01/2018 7:30 PM POLLUTION CONTROL ENGINEER [facility] LAB[facility] SERVICES [facility] Whole blood specimen (specimen) 07/01/2018 7:18 PM POLLUTION CONTROL ENGINEER 07/01/2018 7:30 PM POLLUTION CONTROL ENGINEER Evan Hernandez MD POINT OF CARE TESTJERONIMO Serrano Performing Organization Address [facility]/ZIP Co de Phone Number [facility] LABORATORY [facility] CLIA# [id number] [address] [place] [address] * (ABNORMAL) POC GLUCOSE (07/01/2018 6:28 PM POLLUTION CONTROL ENGINEER) GLUCOSE POC 125(H) 74 - 99 mg/dL 07/01/2018 6:41 PM POLLUTION CONTROL ENGINEER [facility] YARD COUPLER NAME YULIANA TRENT 07/01/2018 6:41 PM POLLUTION CONTROL ENGINEER [facility] Whole blood specimen (specimen) 07/01/2018 6:28 PM POLLUTION CONTROL ENGINEER 07/01/2018 6:41 PM POLLUTION CONTROL ENGINEER Evan Hernandez MD POINT OF CARE TESTIN G Performing Organization Address [facility]/ZIP Co de Phone Number [facility] CLIA# [id number] [address] [place] [address] * (ABNORMAL) POC GLUCOSE (07/01/2018 5:18 PM POLLUTION CONTROL ENGINEER) GLUCOSE POC 142(H) 74 - 99 mg/dL 07/02/2018 10:34 AM POLLUTION CONTROL ENGINEER [facility] YARD COUPLER NAME YULIANA TRENT 07/02/2018 10:34 AM POLLUTION CONTROL ENGINEER [facility] Whole blood specimen (specimen) 07/01/2018 5:18 PM POLLUTION CONTROL ENGINEER 07/02/2018 10:34 AM POLLUTION CONTROL ENGINEER Evan Hernandez MD POINT OF CARE TESTIN G Performing Organization Address City/[facility]/ZIP Co de Phone Number [facility] CLIA# [id number] [address] [place] [address] * (ABNORMAL) POC GLUCOSE (07/01/2018 4:11 PM POLLUTION CONTROL ENGINEER) GLUCOSE POC 141(H) 74 - 99 mg/dL 07/01/2018 4:24 PM POLLUTION CONTROL ENGINEER [facility] YARD COUPLER NAME YULIANA TRENT 07/01/2018 4:24 PM POLLUTION CONTROL ENGINEER [facility] Whole blood specimen (specimen) 07/01/2018 4:11 PM POLLUTION CONTROL ENGINEER 07/01/2018 4:24 PM POLLUTION CONTROL ENGINEER Evan Hernandez MD POINT OF CARE TESTIN G [facility] [employer]# [id number] [address] [place] [address] * (ABNORMAL) POC GLUCOSE (07/01/2018 3:06 PM POLLUTION CONTROL ENGINEER) GLUCOSE POC 134(H) 74 - 99 mg/dL 07/01/2018 3:23 PM POLLUTION CONTROL ENGINEER [facility] LABORATORY [facility] YARD COUPLER NAME YULIANA TRENT 07/01/2018 3:23 PM POLLUTION CONTROL ENGINEER [facility] LABORATORY [facility] Whole blood specimen (specimen) 07/01/2018 3:06 PM POLLUTION CONTROL ENGINEER 07/01/2018 3:23 PM POLLUTION CONTROL ENGINEER Evan Hernandez MD POINT OF CARE TESTJERONIMO Maggie Performing Organization Address [facility] Co de Phone Number [facility] [employer]# [id number] [address] [place] [address] * (ABNORMAL) POC GLUCOSE (07/01/2018 2:04 PM POLLUTION CONTROL ENGINEER) GLUCOSE POC 167(H) 74 - 99 mg/dL 07/01/2018 2:51 PM POLLUTION CONTROL ENGINEER [facility] LABORATORY [facility] YARD COUPLER NAME POC ELIGIO CALLEJAS 07/01/2018 2:51 PM POLLUTION CONTROL ENGINEER [facility] LABORATORY [facility] Whole blood specimen (specimen) 07/01/2018 2:04 PM POLLUTION CONTROL ENGINEER 07/01/2018 2:51 PM POLLUTION CONTROL ENGINEER Evan Hernandez MD POINT OF CARE TESTJERONIMO G Performing Organization Address City/[facility]/ZIP Co de Phone Number [facility] [employer]# [id number] [address] [place] [address] * (ABNORMAL) POC GLUCOSE (07/01/2018 1:03 PM POLLUTION CONTROL ENGINEER) GLUCOSE POC 236(H) 74 - 99 mg/dL 07/01/2018 1:18 PM POLLUTION CONTROL ENGINEER [facility] LABORATORY [facility] YARD COUPLER NAME POC YULIANA GAFFNEY 07/01/2018 1:18 PM POLLUTION CONTROL ENGINEER [facility] [employer] Whole blood specimen (specimen) 07/01/2018 1:03 PM POLLUTION CONTROL ENGINEER 07/01/2018 1:18 PM POLLUTION CONTROL ENGINEER Evan Hernandez MD POINT OF CARE FLY Serrano Performing Organization Address [facility] Co de Phone Number [facility] [employer] CLCT# [id number] [address] [place] [address] * (ABNORMAL) POC GLUCOSE (07/01/2018 12:14 PM POLLUTION CONTROL ENGINEER) GLUCOSE POC 151(H) 74 - 99 mg/dL 07/01/2018 12:28 PM POLLUTION CONTROL ENGINEER [facility] [employer] YARD COUPLER NAME ELIGIO ANGEL 07/01/2018 12:28 PM POLLUTION CONTROL ENGINEER [facility] Whole blood specimen (specimen) 07/01/2018 12:14 PM POLLUTION CONTROL ENGINEER 07/01/2018 12:28 PM POLLUTION CONTROL ENGINEER Evan Hernandez MD POINT OF CARE FLY Serrano Performing Organization Address [facility] Co de Phone Number [facility] [id number] [address] [place] [address] * (ABNORMAL) POC GLUCOSE (07/01/2018 11:01 AM POLLUTION CONTROL ENGINEER) GLUCOSE POC 158(H) 74 - 99 mg/dL 07/01/2018 11:25 AM POLLUTION CONTROL ENGINEER [facility] LABORATORY [facility] YARD COUPLER NAME YULIANA TRENT 07/01/2018 11:25 AM POLLUTION CONTROL ENGINEER [email or web address] Whole blood specimen (specimen) 07/01/2018 11:01 AM POLLUTION CONTROL ENGINEER 07/01/2018 11:25 AM POLLUTION CONTROL ENGINEER Evan Hernandez MD POINT OF CARE FLY Serrano Performing Organization Address [facility] Co de Phone Number [facility]# [id number] [address] [place] [address] * (ABNORMAL) POC GLUCOSE (07/01/2018 9:20 AM POLLUTION CONTROL ENGINEER) GLUCOSE POC 121(H) 74 - 99 mg/dL 07/01/2018 9:35 AM [facility] [employer] [facility] YARD COUPLER NAME POC ELIGIO CALLEJAS 07/01/2018 9:35 AM [facility] [employer] Whole blood specimen (specimen) 07/01/2018 9:20 AM POLLUTION CONTROL ENGINEER 07/01/2018 9:35 AM POLLUTION CONTROL ENGINEER Evan Hernandez MD POINT OF CARE FLY Maggie Performing Organization Address [facility] de Phone Number [facility]# [id number] [address] [place] [address] * (ABNORMAL) TRIGLYCERIDE (07/01/2018 3:08 AM POLLUTION CONTROL ENGINEER) TRIGLYCERIDE 790(H) <150 mg/dL 07/01/2018 3:37 AM [facility] [employer] Blood Venipuncture / Unknown 07/01/2018 3:08 AM POLLUTION CONTROL ENGINEER 07/01/2018 3:11 AM POLLUTION CONTROL ENGINEER Narrative [facility] - 07/01/2018 3:37 AM POLLUTION CONTROL ENGINEER TRIGLYCERIDES ? mg/dL Normal ?< 150 Borderline High ?150 - 199 High ? 200 - 499 Very High ? >= 500 Based on AHA/NCEP Guidelines. Niki Davenport MD CHEMISTRY ORDERABLES Performing Organization Address [facility] Co de Phone Number [facility] [employer]# [id number] [address] [place] [address] * (ABNORMAL) BASIC METABOLIC PANEL (07/01/2018 3:08 AM POLLUTION CONTROL ENGINEER) SODIUM 134(L) 136 - 145 mmol/L 07/01/2018 3:37 AM POLLUTION CONTROL ENGINEER [facility] LABORATORY SERVICES - . [facility] POTASSIUM 3.6 3.5 - 5.0 mmol/L 07/01/2018 3:37 AM POLLUTION CONTROL ENGINEER [facility] LABORATORY SERVICES - [facility] CHLORIDE 100 98 - 107 mmol/L 07/01/2018 3:37 AM [facility] LABORATORY SERVICES - [facility] CO2 25 22 - 29 mmol/L 07/01/2018 3:37 AM [facility] LABORATORY SERVICES - . [place] CALCIUM 8.0(L) 8.6 - 10.2 mg/dL 07/01/2018 3:37 AM POLLUTION CONTROL ENGINEER [facility] LABORATORY SERVICES - . [place] BUN 9 6 - 20 mg/dL 07/01/2018 3:37 AM [facility] LABORATORY SERVICES - . [facility] CREATININE 0.58 0.51 - 0.95 mg/dL 07/01/2018 3:37 AM [facility]ORATORY SERVICES - . [place] GLUCOSE 119(H) 74 - 99 mg/dL 07/01/2018 3:37 AM [facility] LABORATORY SERVICES - [facility] GFR >60 >=60 mL/min/1.7 3 sq meter 07/01/2018 3:37 AM [employer] SERVICES - [facility] Comment: eGFR has [...] mL/min/1.7 3 sq meter 07/01/2018 3:37 AM [facility] LABORATORY SERVICES - [facility] ANION GAP 9 8 - 16 mmol/L 07/01/2018 3:37 AM [facility] LABORATORY SERVICES [facility] Blood Venipuncture / Unknown 07/01/2018 3:08 AM POLLUTION CONTROL ENGINEER 07/01/2018 3:11 AM POLLUTION CONTROL ENGINEER Niki Davenport MD CHEMISTRY ORDERABLES [facility] LABORATORY SERVICES - [facility]# [id number] [address] [place] [address] * (ABNORMAL) CBC WITH DIFFERENTIAL (07/01/2018 3:08 AM POLLUTION CONTROL ENGINEER) WBC 7.0 4.0 - 9.8 K/uL 07/01/2018 3:15 AM [facility] LABORATORY SERVICES - . [place] RBC 3.56(L) 3.90 - 4.90 M/uL 07/01/2018 3:15 AM [facility] LABORATORY SERVICES - . [facility] HEMOGLOBIN 10.7(L) 11.8 - 14.8 g/dL 07/01/2018 3:15 AM [facility] SERVICES - . [place] HEMATOCRIT 32.8(L) 35.5 - 44.0 % 07/01/2018 3:15 AM [facility] LABORATORY SERVICES - . [place] MCV 92.1 82.0 - 99.0 fL 07/01/2018 3:15 AM [facility] LABORATORY SERVICES - . [place] MCH 30.1 27.2 - 32.6 pg 07/01/2018 3:15 AM [facility] LABORATORY SERVICES - . [facility] MCHC 32.6 31.5 - 35.5 g/dL 07/01/2018 3:15 AM [facility] LABORATORY SERVICES - [facility] RDW 14.2 11.5 - 14.5 % 07/01/2018 3:15 AM [facility] LABORATORY SERVICES - . [facility] RDW-STDEV 48.3 37.1 - 48.7 fL 07/01/2018 3:15 AM [facility] LABORATORY SERVICES - . [place] PLATELETS 192 140 - 350 K/uL 07/01/2018 3:15 AM [facility] [employer] SERVICES - . [facility] MPV 8.4(L) 9.3 - 12.4 fL 07/01/2018 3:15 AM [facility] LABORATORY SERVICES - . [place] NEUTROPHILS 54 % 07/01/2018 3:15 AM [facility] LABORATORY SERVICES - [facility] LYMPHOCYTES 39 % 07/01/2018 3:15 AM [facility] LABORATORY SERVICES - [facility] MONOCYTES 5 % 07/01/2018 3:15 AM [facility] LABORATORY SERVICES - [facility] EOSINOPHILS 1 % 07/01/2018 3:15 AM [facility] LABORATORY SERVICES - [facility] BASOPHILS 0 % 07/01/2018 3:15 AM [facility] LABORATORY SERVICES - [facility] IMMATURE GRANULOCYTES 0 % 07/01/2018 3:15 AM [facility] LABORATORY [facility] NEUTROPHIL ABSOLUTE 3.78 1.90 - 7.00 K/uL 07/01/2018 3:15 AM [facility] LABORATORY SERVICES - [facility] LYMPHOCYTE ABSOLUTE 2.71 0.70 - 4.50 K/uL 07/01/2018 3:15 AM [facility] [employer] LABORATORY SERVICES - [facility] MONOCYTE ABSOLUTE 0.35 0.10 - 1.30 K/uL 07/01/2018 3:15 AM [facility] LABORATORY SERVICES - [facility] EOSINOPHIL ABSOLUTE 0.06 0.00 - 0.70 K/uL 07/01/2018 3:15 AM [facility] [employer] LABORATORY [facility] BASOPHILS ABSOLUTE 0.03 0.00 - 0.20 K/uL 07/01/2018 3:15 AM [facility] [employer] LABORATORY SERVICES - [facility] IMMATURE GRANULOCYTES ABSOLUTE 0.03 0.00 - 0.03 K/uL 07/01/2018 3:15 AM [facility] [employer] Blood Venipuncture / Unknown 07/01/2018 3:08 AM POLLUTION CONTROL ENGINEER 07/01/2018 3:11 AM POLLUTION CONTROL ENGINEER Niki Davenport MD HEMATOLOGY ORDERABLE S [facility] [id number] [facility] [address] [id number] * (ABNORMAL) POC GLUCOSE (07/01/2018 1:41 AM POLLUTION CONTROL ENGINEER) GLUCOSE POC 116(H) 74 - 99 mg/dL 07/01/2018 1:52 AM [facility] LABORATORY [facility] YARD COUPLER NAME POC TAMIKO LASSITER 07/01/2018 1:52 AM [facility] [employer] [facility] Whole blood specimen (specimen) 07/01/2018 1:41 AM POLLUTION CONTROL ENGINEER 07/01/2018 1:52 AM POLLUTION CONTROL ENGINEER Niki Davenport MD POINT OF CARE TESTJERONIMO Serrano Performing Organization Address [facility]/ZIP Co de Phone Number [facility] LABORATORY [facility] CLIA# [id number] [address] [place] [address] * (ABNORMAL) POC GLUCOSE (06/30/2018 8:49 PM POLLUTION CONTROL ENGINEER) GLUCOSE POC 144(H) 74 - 99 mg/dL 06/30/2018 9:03 PM POLLUTION CONTROL ENGINEER [facility] LABORATORY [facility] YARD COUPLER NAME POC SABINA LASSITERI 06/30/2018 9:03 PM POLLUTION CONTROL ENGINEER [facility] LABORATORY [facility] Whole blood specimen (specimen) 06/30/2018 8:49 PM POLLUTION CONTROL ENGINEER 06/30/2018 9:03 PM POLLUTION CONTROL ENGINEER Niki Davenport MD POINT OF CARE TESTJERONIMO Serrano Performing Organization Address [facility] Co de Phone Number [facility] [employer] [facility] CLIA# [id number] [address] [place] [address] * POC GLUCOSE (06/30/2018 5:00 PM POLLUTION CONTROL ENGINEER) GLUCOSE POC 93 74 - 99 mg/dL 06/30/2018 5:17 PM POLLUTION CONTROL ENGINEER [facility] LABORATORY SERVICES [facility] YARD COUPLER NAME POC EDA DE LOS SANTOS 06/30/2018 5:17 PM POLLUTION CONTROL ENGINEER [facility] LABORATORY SERVICES [facility] Whole blood specimen (specimen) 06/30/2018 5:00 PM POLLUTION CONTROL ENGINEER 06/30/2018 5:17 PM POLLUTION CONTROL ENGINEER Niki Davenport MD POINT OF CARE TESTJERONIMO Serrano Performing Organization Address [facility]/ZIP Co de Phone Number [facility] LABORATORY [facility] CLIA# [id number] [address] [place] [address] * (ABNORMAL) TRIGLYCERIDE (06/30/2018 5:00 PM POLLUTION CONTROL ENGINEER) TRIGLYCERIDE 870(H) <150 mg/dL 06/30/2018 6:37 PM POLLUTION CONTROL ENGINEER [facility] Blood Venipuncture / Unknown 06/30/2018 5:00 PM POLLUTION CONTROL ENGINEER 06/30/2018 5:32 PM POLLUTION CONTROL ENGINEER Narrative [facility] - 06/30/2018 6:37 PM POLLUTION CONTROL ENGINEER TRIGLYCERIDES ? mg/dL Normal ?< 150 Borderline High ?150 - 199 High ? 200 - 499 Very High ? >= 500 Based on AHA/NCEP Guidelines. Niki Davenport MD CHEMISTRY ORDERABLES Performing Organization Address [facility] Co de Phone Number [facility]# [id number] [address] [place] [address] * POC GLUCOSE (06/30/2018 1:15 PM POLLUTION CONTROL ENGINEER) GLUCOSE POC 86 74 - 99 mg/dL 06/30/2018 1:27 PM [facility] YARD COUPLER NAME FLAKO RODRIGUEZ 06/30/2018 1:27 PM POLLUTION CONTROL ENGINEER [facility] Whole blood specimen (specimen) 06/30/2018 1:15 PM POLLUTION CONTROL ENGINEER 06/30/2018 1:27 PM POLLUTION CONTROL ENGINEER Niki Davenport MD POINT OF CARE TESTIN G Performing Organization Address [facility]/ZIP Co de Phone Number [facility]# [id number] [address] [place] [address] * POC GLUCOSE (06/30/2018 8:41 AM POLLUTION CONTROL ENGINEER) GLUCOSE POC 82 74 - 99 mg/dL 06/30/2018 8:59 AM POLLUTION CONTROL ENGINEER [facility] [employer] [facility] YARD COUPLER NAME FLAKO RODRIGUEZ P 06/30/2018 8:59 AM [facility] [employer] [facility] Whole blood specimen (specimen) 06/30/2018 8:41 AM POLLUTION CONTROL ENGINEER 06/30/2018 8:59 AM POLLUTION CONTROL ENGINEER Niki Davenport MD POINT OF CARE TESTIN G Performing Organization Address [facility] de Phone Number [facility]# [id number] [address] [facility] [place] [address] * (ABNORMAL) TRIGLYCERIDE (06/30/2018 6:11 AM POLLUTION CONTROL ENGINEER) TRIGLYCERIDE 790(H) <150 mg/dL 06/30/2018 7:26 AM [facility] [employer] Blood Venipuncture / Unknown 06/30/2018 6:11 AM POLLUTION CONTROL ENGINEER 06/30/2018 6:40 AM POLLUTION CONTROL ENGINEER Narrative [facility] [employer] - 06/30/2018 7:26 AM POLLUTION CONTROL ENGINEER TRIGLYCERIDES ? mg/dL Normal ?< 150 Borderline High ?150 - 199 High ? 200 - 499 Very High ? >= 500 Based on AHA/NCEP Guidelines. Pernell Tapia MD CHEMISTRY ORDERABLES Performing Organization Address [facility] de Phone Number [facility]# [id number] [address] [place] [address] * BASIC METABOLIC PANEL (06/30/2018 6:11 AM POLLUTION CONTROL ENGINEER) SODIUM 138 136 - 145 mmol/L 06/30/2018 7:26 AM [facility] [employer] POTASSIUM 3.9 3.5 - 5.0 mmol/L 06/30/2018 7:26 AM [facility] CHLORIDE 103 98 - 107 mmol/L 06/30/2018 7:26 AM POLLUTION CONTROL ENGINEER [employer] [facility] CO2 25 22 - 29 mmol/L 06/30/2018 7:26 AM [facility] CALCIUM 9.2 8.6 - 10.2 mg/dL 06/30/2018 7:26 AM [facility] BUN 11 6 - 20 mg/dL 06/30/2018 7:26 AM [facility] CREATININE 0.59 0.51 - 0.95 mg/dL 06/30/2018 7:26 AM [facility] GLUCOSE 88 74 - 99 mg/dL 06/30/2018 7:26 AM [facility] GFR >60 >=60 mL/min/1.7 3 sq meter 06/30/2018 7:26 AM [facility] [employer] Comment: eGFR has not [...] mL/min/1.7 3 sq meter 06/30/2018 7:26 AM [facility] ANION GAP 10 8 - 16 mmol/L 06/30/2018 7:26 AM [facility] [employer] Blood Venipuncture / Unknown 06/30/2018 6:11 AM POLLUTION CONTROL ENGINEER 06/30/2018 6:40 AM POLLUTION CONTROL ENGINEER Niik Davenport MD CHEMISTRY ORDERABLES [facility] [id number] [address] [facility] [address] [address] * (ABNORMAL) CBC WITH DIFFERENTIAL (06/30/2018 6:11 AM POLLUTION CONTROL ENGINEER) WBC 8.1 4.0 - 9.8 K/uL 06/30/2018 6:49 AM [facility] LABORATORY SERVICES - [facility] RBC 4.14 3.90 - 4.90 M/uL 06/30/2018 6:49 AM [facility] LABORATORY SERVICES - . [place] HEMOGLOBIN 12.1 11.8 - 14.8 g/dL 06/30/2018 6:49 AM POLLUTION CONTROL ENGINEER [facility] LABORATORY SERVICES - [facility] HEMATOCRIT 38.4 35.5 - 44.0 % 06/30/2018 6:49 AM [facility] LABORATORY SERVICES - . [place] MCV 92.8 82.0 - 99.0 fL 06/30/2018 6:49 AM [facility] LABORATORY SERVICES - [facility] MCH 29.2 27.2 - 32.6 pg 06/30/2018 6:49 AM [facility] LABORATORY SERVICES - [facility] MCHC 31.5 31.5 - 35.5 g/dL 06/30/2018 6:49 AM [facility]ORAT[facility] SERVICES - . [place] RDW 14.3 11.5 - 14.5 % 06/30/2018 6:49 AM [facility] LABORATORY SERVICES - . [facility] RDW-STDEV 49.0(H) 37.1 - 48.7 fL 06/30/2018 6:49 AM [facility] LABORATORY SERVICES - . [place] PLATELETS 234 140 - 350 K/uL 06/30/2018 6:49 AM [facility] LABORATORY SERVICES - . [facility] MPV 8.9(L) 9.3 - 12.4 fL 06/30/2018 6:49 AM [facility] SERVICES - . [place] NEUTROPHILS 49 % 06/30/2018 6:49 AM [facility] LYMPHOCYTES 43 % 06/30/2018 6:49 AM [facility] MONOCYTES 6 % 06/30/2018 6:49 AM [facility] EOSINOPHILS 1 % 06/30/2018 6:49 AM [facility] BASOPHILS 0 % 06/30/2018 6:49 AM [facility] SERVICES - . [place] IMMATURE GRANULOCYTES 1 % 06/30/2018 6:49 AM [facility] SERVICES - . [facility] Comment:IG (Immature Granulo cyte) count includes Metamyelocytes, Myelocytes, and Promyelocytes NEUTROPHIL ABSOLUTE 3.99 1.90 - 7.00 K/uL 06/30/2018 6:49 AM [facility] LABORATORY SERVICES - [facility] LYMPHOCYTE ABSOLUTE 3.49 0.70 - 4.50 K/uL 06/30/2018 6:49 AM POLLUTION CONTROL ENGINEER [facility] LABORATORY SERVICES - [facility] MONOCYTE ABSOLUTE 0.45 0.10 - 1.30 K/uL 06/30/2018 6:49 AM POLLUTION CONTROL ENGINEER [facility] LABORATORY SERVICES - [facility] EOSINOPHIL ABSOLUTE 0.09 0.00 - 0.70 K/uL 06/30/2018 6:49 AM POLLUTION CONTROL ENGINEER [facility] LABORATORY SERVICES - [facility] BASOPHILS ABSOLUTE 0.03 0.00 - 0.20 K/uL 06/30/2018 6:49 AM POLLUTION CONTROL ENGINEER [facility] LABORATORY SERVICES - [facility] IMMATURE GRANULOCYTES ABSOLUTE 0.05(H) 0.00 - 0.03 K/uL 06/30/2018 6:49 AM [facility] LAB[facility]ATORY SERVICES [facility] Blood Venipuncture / Unknown 06/30/2018 6:11 AM POLLUTION CONTROL ENGINEER 06/30/2018 6:40 AM POLLUTION CONTROL ENGINEER Niki Davenport MD HEMATOLOGY ORDERABLE S [employer] SERVICES [facility]# [id number] [address] [place] [address] * (ABNORMAL) DRUG SCREEN, URINE (06/29/2018 8:24 PM POLLUTION CONTROL ENGINEER) AMPHETAMINE QUAL, URINE Negative Negative 06/29/2018 9:09 PM POLLUTION CONTROL ENGINEER [employer] SERVICES - [facility] BARBITURATE QUAL, URINE Negative Negative 06/29/2018 9:09 PM POLLUTION CONTROL ENGINEER [employer] SERVICES - [facility] BENZODIAZEPINE QUAL, URINE Negative Negative 06/29/2018 9:09 PM [employer] SERVICES - . [facility] COCAINE QUAL URINE Negative Negative 06/29/2018 9:09 PM POLLUTION CONTROL ENGINEER [employer] SERVICES - [facility] OPIATE QUAL, URINE Negative Negative 06/29/2018 9:09 PM [facility] [employer] SERVICES [facility] CANNABINOIDS QUAL, URINE Presumptive Positive(A) Negative 06/29/2018 9:09 PM POLLUTION CONTROL ENGINEER [employer] SERVICES - . [facility] PCP QUAL, URINE Negative Negative 9 9:09 PM [facility] OXYCODONE QUAL, URINE Presumptive Positive(A) Negative 06/29/2018 9:09 PM [facility] METHADONE QUAL, URINE Negative Negative 06/29/2018 9:09 PM [facility] CREATININE, URINE 122.2 29.0 - 226.0 mg/dL 06/29/2018 9:09 PM [facility] Comment: Reference Range varies with fluid intake and diet. Urine URINE SPECIMEN OBTAINED BY CLEAN CATCH PROCEDURE / Unknown Collection / Unknown 06/29/2018 8:24 PM [facility] 06/29/2018 8:44 PM [facility] - 06/29/2018 9:09 PM [facility] STACIA INTERP: Urine sample was not [...] at . Eva Duran MD URINE ORDERABLES [facility] LABORATORY SERVICES - [facility] CLIA# [id number] [address] [facility] [place] [address] * (ABNORMAL) URINALYSIS WITH REFLEX MICROSCOPIC (06/29/2018 8:23 PM POLLUTION CONTROL ENGINEER) COLOR UA Yellow Pale to Dark Yellow 06/29/2018 8:51 PM [facility] LABORATORY SERVICES - . [facility] CLARITY UA Clear Clear 06/29/2018 8:51 PM POLLUTION CONTROL ENGINEER [facility] LABORATORY SERVICES - . [facility] SPECIFIC GRAVITY UA 1.023 1.003 - 1.035 06/29/2018 8:51 PM [facility] LABORATORY SERVICES - . [facility] PH UA 5.0 5.0 - 8.0 06/29/2018 8:51 PM [facility] LABORATORY SERVICES - . [facility] LEUKOCYTE ESTERASE UA Negative Negative 06/29/2018 8:51 PM POLLUTION CONTROL ENGINE[employer] LAB[facility] - . [facility] NITRITE UA Negative Negative 06/29/2018 8:51 PM [facility] [employer] LAB[facility] - . [facility] PROTEIN UA Negative Negative 06/29/2018 8:51 PM POLLUTION CONTROL ENGINE[employer] [facility] - . [facility] GLUCOSE UA 1+(A) Negative 06/29/2018 8:51 PM POLLUTION CONTROL ENGINEER [employer] [facility] - . [facility] KETONES UA Negative Negative 06/29/2018 8:51 PM [employer]LLUTION CONTROL ENGINE[employer] [facility] - . [facility] UROBILINOGEN UA Normal <2.0 mg/dL 9 8:51 PM [employer]LL[employer] ENGINE[employer] [facility] - . [facility] BILIRUBIN UA Negative Negative 06/29/2018 8:51 PM [employer]LL[employer] CONTROL ENGINE[employer] [facility] - . [facility] BLOOD UA Negative Negative 06/29/2018 8:51 PM POLLUTION CONTROL ENGINEER [facility] LABORATORY SERVICES - . [facility] Urine URINE SPECIMEN OBTAINED BY CLEAN CATCH PROCEDURE / Unknown Collection / Unknown 06/29/2018 8:23 PM [employer]LLUTION CONTROL ENGINEER 06/29/2018 8:28 PM POLLUTION CONTROL ENGINEER Eva Duran MD URINE ORDERABLES Performing Organization Address [facility] Co de Phone Number [facility] [employer] [facility] [id number] [address] [place] [address] * (ABNORMAL) HEMOGLOBIN A1C (06/29/2018 8:17 PM POLLUTION CONTROL ENGINEER) HEMOGLOBIN A1C 7.7(H) <5.7 % 06/29/2018 9:04 PM POLLUTION CONTROL ENGINEER [facility] LABORATORY [facility] EST. AVG GLUCOSE, A1C 174 mg/dL 06/29/2018 9:04 PM POLLUTION CONTROL ENGINEER [facility] [employer] [facility] Blood Venipuncture / Unknown 06/29/2018 8:17 PM POLLUTION CONTROL ENGINEER 06/29/2018 8:26 PM POLLUTION CONTROL ENGINEER Narrative [facility] - 06/29/2018 9:04 PM POLLUTION CONTROL ENGINEER HGB A1C INTERPRETATION NORMAL: ? <5.7% PRE-DIABETES: 5.7 - 6.4% DIABETES: ? 6.5% OR GREATER Eva Duran MD CHEMISTRY ORDERABLES Performing Organization Address City/[facility] Co de Phone Number [facility] [employer] [facility] [id number] [address] [place] [address] * (ABNORMAL) PROTIME-INR (06/29/2018 8:17 PM POLLUTION CONTROL ENGINEER) PROTIME 12.0(L) 12.7 - 15.1 Seconds 06/29/2018 8:48 PM POLLUTION CONTROL ENGINEER [facility] LABORATORY [facility] INR 0.9 0.9 - 1.1 06/29/2018 8:48 PM POLLUTION CONTROL ENGINEER [facility] [employer] [facility] Blood Venipuncture / Unknown 06/29/2018 8:17 PM POLLUTION CONTROL ENGINEER 06/29/2018 8:26 PM POLLUTION CONTROL ENGINEER Narrative [facility] - 06/29/2018 8:48 PM POLLUTION CONTROL ENGINEER INR Therapeutic Range: Adult: ?? 2.0 - 3.0 for pulmonary embolism or prophylaxis against venous ?thrombosis or systemic embolization. 2.0 - 3.0 for patients with tissue heart valves. 2.5 - 3.5 for patients with mechanical heart valves or post NH. Pediatric ??(12 years and under): 1.5 - [...] [facility] [place]/ZIP Co de Phone Number [facility] CLIA# [id number] [address] [place] [address] * LIPASE (06/29/2018 8:17 PM POLLUTION CONTROL ENGINEER) LIPASE 45 13 - 60 U/L 06/29/2018 9:08 PM POLLUTION CONTROL ENGINEER [facility] Blood Venipuncture / Unknown 06/29/2018 8:17 PM POLLUTION CONTROL ENGINEER 06/29/2018 8:26 PM POLLUTION CONTROL ENGINEER Eva Duran MD CHEMISTRY ORDERABLES [facility] CLIA# [id number] [address] [place] [address] * C-REACTIVE PROTEIN (06/29/2018 8:17 PM POLLUTION CONTROL ENGINEER) CRP 3.0 <5.0 mg/L 06/29/2018 9:08 PM POLLUTION CONTROL ENGINEER [facility] Blood Venipuncture / Unknown 06/29/2018 8:17 PM POLLUTION CONTROL ENGINEER 06/29/2018 8:26 PM POLLUTION CONTROL ENGINEER Eva Duran MD CHEMISTRY ORDERABLES [facility] LABORATORY SERVICES - [facility]# [id number] [address] [place] [address] * (ABNORMAL) COMPREHENSIVE METABOLIC PANEL (06/29/2018 8:17 PM POLLUTION CONTROL ENGINEER) SODIUM 136 136 - 145 mmol/L 06/29/2018 10:02 PM [facility] [employer] LABORATORY SERVICES - [facility] POTASSIUM 4.1 3.5 - 5.0 mmol/L 06/29/2018 10:02 PM [facility] LABORATORY [facility] CHLORIDE 102 98 - 107 mmol/L 06/29/2018 10:02 PM [facility] CO2 23 22 - 29 mmol/L 06/29/2018 10:02 PM [facility] CALCIUM 9.6 8.6 - 10.2 mg/dL 06/29/2018 10:02 PM [facility] BUN 13 6 - 20 mg/dL 06/29/2018 10:02 PM [facility] CREATININE 0.60 0.51 - 0.95 mg/dL 06/29/2018 10:02 PM [facility] GLUCOSE 169(H) 74 - 99 mg/dL 06/29/2018 10:02 PM [facility] TOTAL PROTEIN 7.0 6.7 - 8.6 g/dL 06/29/2018 10:02 PM [facility] ALBUMIN 4.3 3.5 - 5.2 g/dL 06/29/2018 10:02 PM [facility]OR[facility]ORY [facility] BILIRUBIN TOTAL <0.2(L) 0.3 - 1.2 mg/dL 06/29/2018 10:02 PM [facility] [employer] LAB[facility]ATORY SERVICES - [facility] Comment:Verified by repeat a nalysis. ALKALINE PHOSPHATASE 66 35 - 104 U/L 06/29/2018 10:02 PM [facility] [employer] LAB[facility]ATORY SERVICES - [facility] AST 14 <33 U/L 06/29/2018 10:02 PM [facility] [employer] [facility] Comment: Cleared of chylomicrons. Hemolysis present. Result may be falsely elevated. ALT 10 <34 U/L 06/29/2018 10:02 PM [facility] Comment:Cleared of chylomicr ons. GFR >60 >=60 mL/min/1.7 3 sq meter 06/29/2018 10:02 PM [facility] Comment: eGFR has not been [...] mL/min/1.7 3 sq meter 06/29/2018 10:02 PM [facility] [employer] [facility] ANION GAP 11 8 - 16 mmol/L 06/29/2018 10:02 PM [facility] Blood Venipuncture / Unknown 06/29/2018 8:17 PM POLLUTION CONTROL ENGINEER 06/29/2018 8:26 PM POLLUTION CONTROL ENGINEER Narrative [facility] - 06/29/2018 10:02 PM POLLUTION CONTROL ENGINEER Samples containing indocyanine green cause interferences on Total and/or Direct Bilirubin and must not be measured. Eva Duran MD CHEMISTRY ORDERABLES [facility] CLIA# [id number] [address] [place] [address] * (ABNORMAL) CBC WITH DIFFERENTIAL (06/29/2018 8:17 PM POLLUTION CONTROL ENGINEER) Pathologist [facility] WBC 8.6 4.0 - 9.8 K/uL 06/29/2018 8:36 PM [facility] RBC 4.23 3.90 - 4.90 M/uL 06/29/2018 8:36 PM [facility] LABORATORY SERVICES - . [facility] HEMOGLOBIN 12.9 11.8 - 14.8 g/dL 06/29/2018 8:36 PM [facility] LABORATORY SERVICES - . [facility] HEMATOCRIT 38.9 35.5 - 44.0 % 06/29/2018 8:36 PM [facility] LABORATORY SERVICES - . [facility] MCV 92.0 82.0 - 99.0 fL 06/29/2018 8:36 PM [facility] [employer] LABORATORY SERVICES - [facility] MCH 30.5 27.2 - 32.6 pg 06/29/2018 8:36 PM [facility] [employer] LABORATORY SERVICES - [facility] MCHC 33.2 31.5 - 35.5 g/dL 06/29/2018 8:36 PM [facility] [employer] LABORATORY SERVICES - [facility] RDW 14.1 11.5 - 14.5 % 06/29/2018 8:36 PM [facility] [employer] LABORATORY SERVICES - [facility] RDW-STDEV 48.2 37.1 - 48.7 fL 06/29/2018 8:36 PM [facility] [employer] LABORATORY SERVICES - [facility] PLATELETS 269 140 - 350 K/uL 06/29/2018 8:36 PM [facility] [employer] LABORATORY SERVICES - [facility] MPV 8.9(L) 9.3 - 12.4 fL 06/29/2018 8:36 PM [facility] [employer] LABORATORY SERVICES - . [facility] NEUTROPHILS 61 % 06/29/2018 8:36 PM [facility] [employer] LABORATORY SERVICES - . [facility] LYMPHOCYTES 33 % 06/29/2018 8:36 PM [facility] [employer] [facility] - [facility] MONOCYTES 5 % 06/29/2018 8:36 PM [facility] [employer] LAB[facility]ATORY SERVICES - [facility] EOSINOPHILS 1 % 06/29/2018 8:36 PM [facility] [employer] LAB[facility]ATORY SERVICES - [facility] BASOPHILS 0 % 06/29/2018 8:36 PM POLLUTION CONTROL ENGINEER [employer] LABORATORY SERVICES - . [facility] IMMATURE GRANULOCYTES 1 % 06/29/2018 8:36 PM [facility] [employer] LABORATORY SERVICES - . [facility] Comment:IG (Immature Granulo cyte) count includes Metamyelocytes, Myelocytes, and Promyelocytes NEUTROPHIL ABSOLUTE 5.21 1.90 - 7.00 K/uL 06/29/2018 8:36 PM [facility] [employer] LABORATORY SERVICES - . [facility] LYMPHOCYTE ABSOLUTE 2.84 0.70 - 4.50 K/uL 06/29/2018 8:36 PM POLLUTION CONTROL ENGINEER [facility] LABORATORY SERVICES - [facility] MONOCYTE ABSOLUTE 0.40 0.10 - 1.30 K/uL 06/29/2018 8:36 PM POLLUTION CONTROL ENGINEER [facility] LABORATORY SERVICES - [facility] EOSINOPHIL ABSOLUTE 0.09 0.00 - 0.70 K/uL 06/29/2018 8:36 PM POLLUTION CONTROL ENGINEER [facility] LABORATORY SERVICES - [facility] BASOPHILS ABSOLUTE 0.03 0.00 - 0.20 K/uL 06/29/2018 8:36 PM POLLUTION CONTROL ENGINEER [facility] LABORATORY SERVICES - [facility] IMMATURE GRANULOCYTES ABSOLUTE 0.04(H) 0.00 - 0.03 K/uL 06/29/2018 8:36 PM POLLUTION CONTROL ENGINEER [facility] LABORATORY SERVICES - [facility] Blood Venipuncture / Unknown 06/29/2018 8:17 PM POLLUTION CONTROL ENGINEER 06/29/2018 8:26 PM POLLUTION CONTROL ENGINEER Eva Duran MD HEMATOLOGY ORDERABLE S [facility] LABORATORY SERVICES [facility]# [id number] [address] [place] [id number] documented in this encounter Visit Diagnoses Diagnosis [...] admin instructions, Routine Given 07/02/2018 11:37 AM POLLUTION CONTROL ENGINEER 650 mg Given 07/01/2018 2:08 PM POLLUTION CONTROL ENGINEER 650 mg lgquojj-uwzbri-vdzxezgg (CRERUDI 12 60-12-38 per capsule 2 Capsule 2 Capsule, Oral, FOUR TIMES DAILY WITH MEALS AND AT BEDTIME, First dose on Sat06/30/18 at 0800, Until Discontinued, Routine Given 07/03/2018 9:54 AM POLLUTION CONTROL ENGINEER 2 Capsules Given 07/02/2018 8:00 PM POLLUTION CONTROL ENGINEER 2 Capsules Given 07/02/2018 4:52 PM POLLUTION CONTROL ENGINEER 2 Capsules atorvastatin (LIPITOR) tablet 80 mg 80 mg, Oral, DAILY AT BEDTIME, First dose on Sat06/30/18 at 2100, Until Discontinued, Routine Given 07/02/2018 8:01 PM POLLUTION CONTROL ENGINEER 80 mg Given 07/01/2018 8:20 PM POLLUTION CONTROL ENGINEER 80 mg Given 06/30/2018 9:10 PM POLLUTION CONTROL ENGINEER 80 mg citalopram (CeleXA) tablet 40 mg 40 mg, Oral, DAILY AT BEDTIME, First dose on Sat06/30/18 at 2100, Until Discontinued, Routine Given 07/02/2018 8:01 PM POLLUTION CONTROL ENGINEER 40 mg Given 07/01/2018 8:20 PM POLLUTION CONTROL ENGINEER 40 mg Given 06/30/2018 9:10 PM POLLUTION CONTROL ENGINEER 40 mg dextrose 5% - sodium chloride 0.45% infusion IV, at 150 mL/hr, CONTINUOUS, Starting on Sat06/30/18 at 0830, Until Sat07/03/18 at 0943, Routine Bag Switched 07/03/2018 1:55 AM POLLUTION CONTROL ENGINEER 150 mL/hr Rate Verify 07/03/2018 1:17 AM POLLUTION CONTROL ENGINEER 150 mL/hr Restarted 07/02/2018 11:22 PM POLLUTION CONTROL ENGINEER 150 mL/hr dextrose 5% - sodium chloride [...] Until Discontinued, Routine Given 07/03/2018 9:54 AM POLLUTION CONTROL ENGINEER 10 mg Given 07/02/2018 8:01 PM POLLUTION CONTROL ENGINEER 10 mg Given 07/02/2018 12:12 PM POLLUTION CONTROL ENGINEER 10 mg diphenhydrAMINE (BENADRYL) injection 25 mg 25 mg, IV, ONE TIME ONLY, 1 dose, On Sat06/29/18 at 2045, Routine Given 06/29/2018 9:06 PM POLLUTION CONTROL ENGINEER 25 mg diphenhydrAMINE (BENADRYL) tablet 25 mg 25 mg, Oral, EVERY 6 HOURS PRN, Starting on Sat06/30/18 at 1356, Until [facility] 07/03/18 at 1643, Itching, Routine Given 07/02/2018 9:28 AM POLLUTION CONTROL ENGINEER 25 mg Given 07/01/2018 2:14 PM POLLUTION CONTROL ENGINEER 25 mg Given 07/01/2018 3:28 AM POLLUTION CONTROL ENGINEER 25 mg enoxaparin (LOVENOX) injection 40 mg 40 mg, subCUT, EVERY 24 HOURS, First dose on Sat06/30/18 at 0900, Until Discontinued, Routine Given 07/03/2018 9:54 AM POLLUTION CONTROL ENGINEER 40 mg Abdomen, Left Lower Quadrant Given 07/02/2018 8:24 AM POLLUTION CONTROL ENGINEER 40 mg Ab domen, Right Lower Quadrant Given 07/01/2018 9:11 AM POLLUTION CONTROL ENGINEER 40 mg Ab domen, Left Lower Quadrant fenofibrate (LOFIBRA) tablet 160 mg 160 mg, Oral, DAILY, First dose on Sat06/30/18 at 0900, Until Discontinued, Routine Given 07/03/2018 9:54 AM POLLUTION CONTROL ENGINEER 160 mg Given 07/02/2018 8:23 AM POLLUTION CONTROL ENGINEER 160 mg Given 07/01/2018 9:11 AM POLLUTION CONTROL ENGINEER 160 mg Fish Oil-Bogue Chitto-3 Fatty Acids 360-1,200 mg capsule 2 Capsule 2 Capsule, Oral, TWO TIMES DAILY, First dose on Sat07/01/18 at 2100, Until Discontinued, Routine Given 07/03/2018 9:54 AM POLLUTION CONTROL ENGINEER 2 Capsules Given 07/02/2018 8:01 PM POLLUTION CONTROL ENGINEER 2 Capsules Given 07/02/2018 8:23 AM POLLUTION CONTROL ENGINEER 2 Capsules HYDROmorphone (DILAUDID) 2 mg/mL injection 1 mg 1 mg, IV, EVERY 2 HOURS PRN, Starting on Sat07/02/18 at 2235, Until Sat07/03/18 at 0945, Pain, Severe, Routine Given 07/02/2018 10:44 PM POLLUTION CONTROL ENGINEER 1 mg hydrOXYzine HCl (ATARAX) tablet 25 mg 25 mg, Oral, ONE TIME ONLY, 1 dose, On Sat06/30/18 at 2315, Routine Given 06/30/2018 11:35 PM POLLUTION CONTROL ENGINEER 25 mg insulin glargine (LANTUS) injection 10 Units 10 Units, subCUT, DAILY WITH BREAKFAST, First dose (after last modification) on Sat07/03/18 at 0845, Until Discontinued, Routine, If ordered at or before 3:00 pm give dose now and start daily with breakfast tomorrow. If ordered after 3:00 pm give dose now and start daily at bedtime tomorrow. Given 07/03/2018 10:55 AM POLLUTION CONTROL ENGINEER 10 Units Arm, Left Upper insulin glargine (LANTUS) injection 12 Units 12 Units, subCUT, DAILY WITH BREAKFAST, First dose (after last modification) on Sat07/02/18 at 1000, Until Discontinued, Routine, If ordered at or before 3:00 pm give dose now and start daily with breakfast tomorrow. If ordered after 3:00 pm give dose now and start daily at bedtime tomorrow. Given 07/02/2018 12:02 PM POLLUTION CONTROL ENGINEER 12 Units Arm, Left Upper insulin lispro (HumaLOG) injection 3 Units 3 Units, subCUT, THREE TIMES DAILY WITH MEALS, First dose on Sat07/02/18 at 1200, Until Discontinued, Routine Given 07/02/2018 4:53 PM POLLUTION CONTROL ENGINEER 3 Units Arm, Right Upper insulin lispro (HumaLOG) variable dose injection subCUT, THREE TIMES DAILY WITH MEALS, First dose on Sat07/02/18 at 1200, Until Discontinued, Routine Given 07/03/2018 10:56 AM POLLUTION CONTROL ENGINEER 1 Units Arm, Right Upper Given 07/02/2018 4:54 PM POLLUTION CONTROL ENGINEER 2 Units Ar m, Right Upper insulin lispro (HumaLOG) variable dose injection subCUT, DAILY AT BEDTIME, First dose on Sat07/02/18 at 2100, Until Discontinued, Routine Given 07/02/2018 9:54 PM POLLUTION CONTROL ENGINEER 2 Units Arm, Right Upper insulin regular (HUMULIN R,NOVOLIN R) 100 Units in sodium chloride 0.9% 100 mL infusion 0-25 Units/hr (0-25 mL/hr), IV, TITRATE, Starting on Sat06/30/18 at 0900, Until Katie 07/03/18 at 0943 Rate Change 07/02/2018 12:03 PM POLLUTION CONTROL ENGINEER 2.5 Units/hr 2.5 mL/hr Rate Verify 07/02/2018 11:06 AM POLLUTION CONTROL ENGINEER 2 Units/hr 2 mL/hr Rate Verify 07/02/2018 10:11 AM POLLUTION CONTROL ENGINEER 2 Units/hr 2 mL/hr levothyroxine (SYNTHROID) tablet 200 mcg 200 mcg, Oral, DAILY EARLY, First dose on Sat06/30/18 at 0600, Until Discontinued, Routine Given 07/02/2018 6:00 AM POLLUTION CONTROL ENGINEER 200 mcg Given 07/01/2018 9:11 AM POLLUTION CONTROL ENGINEER 200 mcg Given 06/30/2018 5:14 AM POLLUTION CONTROL ENGINEER 200 mcg LORazepam (ATIVAN) tablet 1 mg 1 mg, Oral, TWO TIMES DAILY PRN, Starting on Sat06/30/18 at 0126, Until Sat07/03/18 at 1643, Anxiety, Routine Given 07/02/2018 8:00 PM POLLUTION CONTROL ENGINEER 1 mg Given 07/02/2018 11:37 AM POLLUTION CONTROL ENGINEER 1 mg Given 07/01/2018 9:31 PM POLLUTION CONTROL ENGINEER 1 mg metoclopramide (REGLAN) 5 mg/mL injection 10 mg 10 mg, IV, ONE TIME ONLY, 1 dose, On Sat06/29/18 at 2045, Routine Given 06/29/2018 9:11 PM POLLUTION CONTROL ENGINEER 10 mg morphine 4 mg/mL injection 4 mg 4 mg, IV, ONE TIME ONLY, 1 dose, On Sat06/29/18 at 2045, Routine Given 06/29/2018 9:13 PM POLLUTION CONTROL ENGINEER 4 mg morphine 4 mg/mL injection 4 mg 4 mg, IV, ONE TIME ONLY, 1 dose, On Sat06/30/18 at 0030, Routine Given 06/30/2018 12:27 AM POLLUTION CONTROL ENGINEER 4 mg morphine 4 mg/mL injection 4 mg 4 mg, IV, EVERY 4 HOURS PRN, Starting on Sat06/30/18 at 0128, Until Sat07/02/18 at 2236, Pain (See admin instructions), Routine Given 07/02/2018 9:57 PM POLLUTION CONTROL ENGINEER 4 mg Given 07/02/2018 5:34 PM POLLUTION CONTROL ENGINEER 4 mg Given 07/02/2018 1:11 PM POLLUTION CONTROL ENGINEER 4 mg niacin (NIACOR) tablet 500 mg 500 mg, Oral, TWO TIMES DAILY, First dose on Sat07/01/18 at 1600, Until Discontinued, Routine Given 07/03/2018 9:54 AM POLLUTION CONTROL ENGINEER 500 mg Given 07/02/2018 8:01 PM POLLUTION CONTROL ENGINEER 500 mg Given 07/02/2018 8:16 AM POLLUTION CONTROL ENGINEER 500 mg nicotine (NICODERM CQ) 21 mg/24 hr transdermal patch 1 Patch 1 Patch, Transdermal, DAILY, First dose on Sat06/30/18 at 2200, Until Discontinued, Routine Applied 07/03/2018 9:55 AM POLLUTION CONTROL ENGINEER 1 Patch Arm, Left Upper Applied 07/02/2018 8:24 AM POLLUTION CONTROL ENGINEER 1 Patch Ar m, Left Upper Applied 07/01/2018 11:01 AM POLLUTION CONTROL ENGINEER 1 Patch S houlder, Right ondansetron (ZOFRAN ODT) tablet 4 mg 4 mg, Oral, EVERY 6 HOURS PRN, Starting on Sat06/30/18 at 0126, Until Sat07/03/18 at 1643, Nausea/Emesis, Routine Given 07/02/2018 9:57 PM POLLUTION CONTROL ENGINEER 4 mg Given 07/02/2018 7:28 AM POLLUTION CONTROL ENGINEER 4 mg Given 06/30/2018 8:54 PM POLLUTION CONTROL ENGINEER 4 mg oxyCODONE-acetaminophen (PERCOCET) 5-325 mg per tablet 1 Tablet 1 Tablet, Oral, EVERY 4 HOURS PRN, Starting on Sat06/30/18 at 0127, Until Sat07/03/18 at 1643, Pain, Routine Given 07/03/2018 9:53 AM POLLUTION CONTROL ENGINEER 1 Tablet Given 07/03/2018 3:30 AM POLLUTION CONTROL ENGINEER 1 Tablet Given 07/02/2018 8:00 PM POLLUTION CONTROL ENGINEER 1 Tablet pantoprazole (PROTONIX) injection 40 mg 40 mg, IV, ONE TIME ONLY, 1 dose, On Sat06/29/18 at 2045, Routine Given 06/29/2018 9:17 PM POLLUTION CONTROL ENGINEER 40 mg pantoprazole (PROTONIX) tablet 40 mg 40 mg, Oral, TWO TIMES DAILY, First dose on Sat06/30/18 at 0900, Until Discontinued, Routine Given 07/03/2018 9:54 AM POLLUTION CONTROL ENGINEER 40 mg Given 07/02/2018 8:00 PM POLLUTION CONTROL ENGINEER 40 mg Given 07/02/2018 8:23 AM POLLUTION CONTROL ENGINEER 40 mg prochlorperazine (COMPAZINE) injection 10 mg 10 mg, IV, EVERY 6 HOURS PRN, Starting on Sat07/02/18 at 2234, Until Katie 07/03/18 at 1643, Nausea/Emesis, Routine Given 07/02/2018 10:44 PM POLLUTION CONTROL ENGINEER 10 mg spironolactone (ALDACTONE) tablet 25 mg 25 mg, Oral, DAILY, First dose on Sat06/30/18 at 0900, Until Discontinued, Routine Given 06/30/2018 8:32 AM POLLUTION CONTROL ENGINEER 25 mg traZODone (DESYREL) tablet 100 mg 100 mg, Oral, DAILY AT BEDTIME, First dose on Sat06/30/18 at 2100, Until Discontinued, Routine Given 07/02/2018 8:00 PM POLLUTION CONTROL ENGINEER 100 mg Given 07/01/2018 8:19 PM POLLUTION CONTROL ENGINEER 100 mg Given 06/30/2018 10:38 PM POLLUTION CONTROL ENGINEER 100 mg documented in this encounter Active and Recently Administered Medications Times are shown in POLLUTION CONTROL ENGINEER. Scheduled Medication Order 07/01/2018 07/02/2018 07/03/2018 [id number]-[id number] e (CREON 12 60-12-38 per capsule 2 [...] Taisha Zuniga RN)2019 (Given - Provider: Yamil Milan RN) 0823 [...] Callejas RN) 08 (Given - Provider: Tavares Guzman RN) 0954 (Given - Provider: Thi Moffett RN) Fish Oil-Bogue Chitto-3 Fatty Acids 360-1,200 mg capsule 2 Capsule [...] Eligio Callejas RN)1101 (Applied - Provider: Eligio Callejas RN) 0816 (Removed - Provider: Tavares Guzman [...] RN) documented in this encounter Care Teams Pulmonary Care Nurse Relationship Specialty Start Date End Date Guerrero Middleton PA-C PCP - General Physician Foundry Manager 02/13/18 documented as of this encounter
--- OUTSIDE RECORDS SUMMARY | 2024-05-03 21:57 | XMS_ITS | Encounter Summary ---
Author Organization [facility] Address [address] [place] [address] Care Team Providers Care Sander And Polisher Name Role Phone Guerrero Middleton PA-C Primary Care Provide r Reason for Visit * Reason Comments Follow Up Encounter Details Date Type Department Care Team (Latest Contact Info) Description 06/18/2018 11:00 AM COATER Office Visit [facility] At [address] [place] [phone] Marlys Mayer MD [address] [place] [address] [address] [place] [address] Hypertriglyceridemia (Primary Dx); Metabolic syndrome; [...] Comments Blood Pressure 124/72 06/18/2018 11:25 AM COATER Pulse 100 06/18/2018 11:25 AM COATER Temperature 36.5 ??C (97.7 ??F) 06/18/2018 1 1:25 AM COATER Respiratory Rate - - Oxygen Saturation 97% 06/18/2018 11: 25 AM COATER Inhaled Oxygen Concentration - - Weight 92.9 kg (204 lb 12.8 oz) 019 11:25 AM COATER Height 165.1 cm (5' 5 ) 06/18/2018 11:2 5 AM COATER Body Mass Index 34.08 06/18/2018 11:25 AM COATER documented in this encounter Progress Notes * Marlys Mayer MD - 06/18/2018 11:43 AM CST [facility] Follow-up Visit Casandra [...] on 05/14/2016: Hospitalizations: 05/16 to 05/21 at [facility] for abdominal pain and very high triglycerides treated with pheresis, 06/02 to 06/05/18 at [facility] for abdominal pain, no pheresis or imaging [...] u PM : 22 u . ??? dqxmxwd-coytbi-fccsdrrc DR TING) 60-12-38 capsule Take 2 Capsules [...] tablet Take 100 mg by mouth. ??? [id number]-Fish Oil [id number] pa-yy-ato-mcg Capsule Take 2 Caplets by mouth 2 [...] HYSTERECTOMY partial due to endometriosis 2006 ??? [place] ESOPHAGOGASTRODUODENOSCOPY TRANSORAL DIAGNOSTIC N/A 03/08/2018 ESOPHAGOGASTRODUODENOSCOPY performed by Ceasar Vega MD at [facility] Social History Social History ??? Marital status: Spouse name: N/A ??? Number of children: N/A ??? Years of education: N/A Occupational History ??? [employer] Social History Main Topics ??? Smoking [...] will send her medical records to an button machine operator at [facility] for evaluation ER * Tita Jessica, A - 06/18/2018 11:28 AM CST Follow Up Casandra reports headache, nausea, dizziness, stomach pains, fatigue. ER documented in this encounter Plan of Treatment Upcoming Encounters Date Type Department Care Team (Late st Contact Info) Description 09/14/2024 3:00 PM CDT Office Visit [facility] - [place] [phone] [address] [place] [address] Marlys Mayer MD [address] [place] [address] documented as of this encounter Visit Diagnoses Diagnosis Hypertriglyceridemia- Primary Pure hyperglyceridemia Metabolic syndrome Dysmetabolic Syndrome X PCOS (polycystic ovarian syndrome) Polycystic ovaries Type 2 diabetes mellitus without complication, with long-term current use of insulin Left upper quadrant pain Abdominal pain, left upper quadrant Obesity (BMI 30.0-34.9) Obesity, unspecified documented in this encounter Care Teams Sander And Polisher Relationship Specialty Start Date End Date Guerrero Middlteon PA-C PCP - General Physician Pouncer 02/13/18 documented as of this encounter
--- OUTSIDE RECORDS SUMMARY | 2024-05-03 21:57 | XMS_ITS | Encounter Summary ---
Author Organization [facility] Address [address] [place] [address] Care Team Providers Care Veterinary Virologist Name Role Phone Guerrero Middleton PA-C Primary Care Provide r Reason for Visit * Reason Onset Date Comments Results 06/19/2018 lipid panel Encounter Details Date Type Department Care Team (Late st Contact Info) Description 06/19/2018 Telephone [facility] Heart and Vascular At [facility] [address] [place] [id number] Marlys Mayer MD [address] [place] [address] Results (lipid panel) Social History [...] Alexandra Kahn RN - 06/19/2018 2:35 PM COMBINATION WELDER Called patient with yesterday's lipid panel results, verbalized understanding. Emailed 3 discharge instructions from hospital, Dr. Mayer's notes, lipid panel results to [email or web address]. Transferred to [facility] phone for appointment INATION WELDER * Telephone Encounter - Thuy Campos R - 06/19/2018 2:06 PM CST Patient called for the results from blood work she had done yesterday. Please contact the patient at [phone] thank you. INATION WELDER documented in this encounter Plan of Treatment Upcoming Encounters Date Type Department Care Team (Late st Contact Info) Description 09/14/2024 3:00 PM CDT Office Visit [facility] Heart and Vascular - [place] [id number] [place] [address] Marlys Mayer MD [address] [place], [place] [id number] documented as of this encounter Visit Diagnoses Not on filedocumented in this encounter Care Teams Veterinary Virologist Relationship Specialty Start Date End Date Guerrero Middleton PA-C PCP - General Physician [facility] 02/13/18 documented as of this encounter
--- OUTSIDE RECORDS SUMMARY | 2024-05-03 21:57 | XMS_ITS | Encounter Summary ---
Author Organization [facility] Address [address] [place] [address] Care Team Providers Care Studio Operation Engineer Name Role Phone Guerrero Middleton PA-C Primary Care Provide r Reason for Visit * Reason Onset Date Comments scheduling appointment 09/26/2018 Encounter Details Date Type Department Care Team (Late st Contact Info) Description 09/26/2018 Telephone [facility] Heart and Vascular At [facility] [address] [place] [phone] Marlys Mayer MD [address] [place] [address] [address] [place] [address] scheduling appointment Social History Tobacco [...] she was given the my direct number [phone]. * Telephone Encounter - Thuy Campos - 09/26/2018 8:51 AM CDT Patient called stating she see's Dr. Mayer every month, but they were waiting to see if she got into a program, but she did not. Patient would like to come in to see Dr. Mayer as soon as she can.Please contact the pt at [phone] thank you. documented in this encounter Plan of Treatment Upcoming Encounters Date Type Department Care Team (Late st Contact Info) Description 09/14/2024 3:00 PM CDT Office Visit [facility] [id number] [place] [address] Marlys Mayer MD [address] [place] [address] documented as of this encounter Visit Diagnoses Diagnosis Mixed hyperlipidemia- Primary documented in this encounter Care Teams Studio Operation Engineer Relationship Specialty Start Date End Date Guerrero Middleton PA-C PCP - General Physician [employer] 02/13/18 documented as of this encounter
--- OUTSIDE RECORDS SUMMARY | 2024-05-03 21:57 | XMS_ITS | Encounter Summary ---
Author Organization [facility] Address [address] [place] [address] Care Team Providers Care Scullion Chief Name Role Phone Guerrero Middleton PA-C Primary Care Provide r Reason for Visit * Reason Onset Date Comments Medication Refill 08/25/2018 Encounter Details Date Type Department Care Team (Late st Contact Info) Description 08/25/2018 Refill [facility] Endocrinology [address] [place] [address] Blake Rudd MD NO ADDRESS [...] and Vascular - [place] [phone] [place] [phone] Marlys Mayer MD [address] [place] [address] documented as of this encounter Visit Diagnoses Diagnosis Hypothyroidism Unspecified hypothyroidism documented in this encounter Care Teams Scullion Chief Relationship Specialty Start Date End Date Guerrero Middleton PA-C PCP - General Physician Conflict Resolution Professional 02/13/18 documented as of this encounter
--- OUTSIDE RECORDS SUMMARY | 2024-05-03 21:57 | XMS_ITS | Encounter Summary ---
Author Organization [facility] Address [address] [place] [address] Care Team Providers Care Shipping Room Supervisor Name Role Phone Guerrero Middleton PA-C [...] Contac t Referred To Contact [facility] Medical Surgical [address] [place] [address] Referral ID Status Reason Start Date Expiration Date Visits Re quested Visits Authorized [id number] 1 1 Encounter Details Date Type Department Care Team (Latest Contact Info) Description 07/29/2018 11:26 PM CDT - 08/03/2018 2:14 PM CDT Hospital Encounter [facility] Oncology [address] [place] [address] Jam Martinez MD [address] [facility] [place] [address] [place] [address] [place] [address] Sanjuana Sellers MD [address] [place] [address] Type 2 diabetes mellitus without complication, with [...] Sellers MD - 08/03/2018 10:[address] [facility] Adult Hospitalist Discharge Summary Casandra Doss 42 y.o. female 1975 CSN: [id number] Date of Admission: 07/29/2018 Date of Discharge: [...] and at bedtime. Refills: 0 Generic drug: uuxdqwg-asphgp-cqeodzet DR dicyclomine 10 mg capsule Commonly known [...] . Refills: 0 STOP taking these medications Illdi1-MsdK3-R30-E-FA-Fish Oil [phone] nb-pv-kyz-mcg Capsule Where to Get Your Medications These medications were sent to [place] [address] ?? dicyclomine 10 mg capsule ?? oxyCODONE-acetaminophen [...] Sellers MD - 08/02/2018 10:[address] [facility] Adult Hospitalist Progress Note Admit Date: 07/29/2018 [...] 99 mg/dL COMMENT, GLU POC Notified RN/MD VIDEO AND SOUND RECORDER NAME DULCE AMANDA POC GLUCOSE Result Value Ref Range POC GLUCOSE 145 (H) 74 - 99 mg/dL COMMENT, GLU POC Notified RN/MD VIDEO AND SOUND RECORDER NAME AMANDA CARDONA POC GLUCOSE Result Value Ref Range POC GLUCOSE 166 (H) 74 - 99 mg/dL VIDEO AND SOUND RECORDER NAME YULIANA GAFFNEY POC GLUCOSE Result Value Ref Range POC GLUCOSE 158 (H) 74 - 99 mg/dL VIDEO AND SOUND RECORDER NAME ZAINAB HART POC GLUCOSE Result Value Ref Range POC GLUCOSE 141 (H) 74 - 99 mg/dL COMMENT, GLU POC Notified RN/MD VIDEO AND SOUND RECORDER NAME TYE VALDEZ POC GLUCOSE Result Value Ref Range POC GLUCOSE 155 (H) 74 - 99 mg/dL VIDEO AND SOUND RECORDER NAME FANY PAUL CBC WITH DIFFERENTIAL Result [...] 99 mg/dL COMMENT, GLU POC Notified RN/MD VIDEO AND SOUND RECORDER NAME TYE VALDEZ POC GLUCOSE Result Value Ref Range POC GLUCOSE 134 (H) 74 - 99 mg/dL COMMENT, GLU POC Notified RN/MD VIDEO AND SOUND RECORDER NAME RAFAELA COOPER Assessment/Plan of Actively Managed [...] (polycystic ovarian syndrome)-aware. 6. Hypothyroidism-continue Synthroid from [employer]. 7. Chylomicronemia syndrome-noted, see #1 8. Tobacco [...] Back NP - 08/02/2018 12:43 AM CDT [facility] Called for: pain Last [...] advance as tolerated. Continue lantus and humalog [facility] qa. Pain control as per [facility] hospitalist. Ok to d/c pt home from [...] Sellers MD - 08/01/2018 11:[address] [facility] Adult Hospitalist Progress Note Admit Date: 07/29/2018 [...] GLUCOSE 104 (H) 74 - 99 mg/dL VIDEO AND SOUND RECORDER NAME JEFF TORRES POC GLUCOSE Result Value Ref Range POC GLUCOSE 78 74 - 99 mg/dL VIDEO AND SOUND RECORDER NAME JEFF TORRES POC GLUCOSE Result Value Ref Range POC GLUCOSE 83 74 - 99 mg/dL VIDEO AND SOUND RECORDER NAME JEFF TORRES POC GLUCOSE Result Value Ref Range POC GLUCOSE 98 74 - 99 mg/dL VIDEO AND SOUND RECORDER NAME PHYLLIS MADERA POC GLUCOSE Result Value Ref Range POC GLUCOSE 92 74 - 99 mg/dL VIDEO AND SOUND RECORDER NAME PHYLLIS MADERA POC GLUCOSE Result Value Ref Range POC GLUCOSE 110 (H) 74 - 99 mg/dL VIDEO AND SOUND RECORDER NAME PHYLLIS MADERA CBC WITH DIFFERENTIAL Result [...] 99 mg/dL COMMENT, GLU POC Notified RN/MD VIDEO AND SOUND RECORDER NAME AMANDA CARDONA Assessment/Plan of Actively Managed [...] (polycystic ovarian syndrome)-aware. 6. Hypothyroidism-continue Synthroid from [employer]. 7. Chylomicronemia syndrome-noted, see #1 8. Tobacco [...] improvement in symptoms. Likely weekend/mon. Transfer to [facility] surg floor as no further plasma [...] Dickinson MD - 08/01/2018 12:45 AM CDT [facility] Called for: Requesting nicotine [...] Years of education: N/A Occupational History ??? [employer] Social History Main Topics ??? Smoking [...] MD 500 mg at 07/31/18 0942 ??? olvavtf-dztuyo-kmpsegrw (CRERUDI 12) 60-12-38 per capsule 2 Capsule [...] Daily BEDTIME Sanjuana Sellers MD ??? Fish Oil-[place]-3 Fatty Acids 360-1,200 mg capsule 1 Capsule [...] mg Oral Daily BEDTIME Maco Duque MD Allergies Allergen Reactions ??? Green Pepper [...] Sellers MD - 07/31/2018 9:[address] [facility] Adult Hospitalist Progress Note Admit Date: 07/29/2018 [...] GLUCOSE 131 (H) 74 - 99 mg/dL VIDEO AND SOUND RECORDER NAME MENDEL SAVANA PROTIME-INR Result Value Ref Range PROTIME 12.7 12.7 - 15.1 Seconds INR 1.0 0.9 - 1.1 POC GLUCOSE Result Value Ref Range POC GLUCOSE 130 (H) 74 - 99 mg/dL COMMENT, GLU POC Notified RN/MD VIDEO AND SOUND RECORDER NAME TRINI CAMARILLO POC GLUCOSE Result Value Ref Range POC GLUCOSE 137 (H) 74 - 99 mg/dL VIDEO AND SOUND RECORDER NAME GRETA MAGDALENO CBC WITH DIFFERENTIAL Result [...] GLUCOSE 108 (H) 74 - 99 mg/dL VIDEO AND SOUND RECORDER NAME JEFF TORRES PROTIME-INR Result Value Ref [...] (polycystic ovarian syndrome)-aware. 6. Hypothyroidism-continue Synthroid from [employer]. 7. Chylomicronemia syndrome-noted, see #1 8. Tobacco [...] Activity Order: Present Activity: in bed (07/31/18 9265) Current Code Status -Full Code Plan discussed [...] Leone NP - 07/31/2018 2:14 AM CDT [facility] Called for: hypotension Last [...] Leone NP - 07/31/2018 12:09 AM CDT [facility] Called for:hypotension Last Recorded [...] Duque MD - 07/30/2018 9:39 PM CDT [facility] Cross Cover Call Called for: Need clarification [...] humalog ssi qa. Pain control as per [facility] hospitalist. Check fasting lipid panel in am. [...] two coworkers: Alana, PCT & A. CLAU Oglesbykeypuncher or upon transfer to: 7th floor & [...] pocket if teal bag, cell phone with tactical deception plans officer and set of clothes with camel colored [...] GERG, HLD,hypothyroidism, PCOS ?? Meds: as per [facility]. ?? Exam: Patient resting in [...] Apheresis will be signing off. 6. For senior care care of patients with recurring pancreatitis requiring [...] years. If you would like to discuss intermediate card tender venousaccess and/or prophylactic apheresis, please let me know. ?? Procedure #1: Patient tolerated the procedure well. No signs or symptoms of hypocalcemia noted. ?? I have seen and examined the patient, reviewed pertinent notes and records, and remained immediately available throughout the procedure. ?? Alize Arteaga MD, PhD Rail Washer, therapeutic apheresis service [phone] * Shira Zamora RN - 07/30/2018 11:03 AM CDT [facility],called as directed by [facility] for med verification. * Sanjuana Sellers MD - 07/30/2018 9:05 AM CDT Seen and examined Full note to follow Consult requested to endocrinology D/W nurse Admission orders placed Check CBC CMP * Jovany Trevino MD - 07/30/2018 5:34 AM CDT [facility] Call Called for: Nausea Last [...] Sellers MD - 07/30/2018 8:[address] [facility] Adult Hospitalist Admission H & P [...] HYSTERECTOMY partial due to endometriosis 2006 ??? [place] ESOPHAGOGASTRODUODENOSCOPY TRANSORAL DIAGNOSTIC N/A 03/08/2018 ESOPHAGOGASTRODUODENOSCOPY performed by Ceasar Vega MD at [facility] Current Medications: Prior to Admission Medications Prescriptions Last Dose Informant Patient Reported? Taking? LORazepam (ATIVAN) 1 mg tablet 07/29/2018 at Unknown time Yes Yes Sig: Take 1 mg by mouth 2 times daily as needed for Anxiety . Qxcvp5-KwzT6-R51-E-FA-Fish Oil [phone] cw-xj-fha-mcg Capsule 07/29/2018 at Unknown time No Yes Sig: Take 2 Caplets by mouth 2 times daily. ekizxdc-zirxfi-ferkcans DR (CREON) 60-12-38 capsule 07/29/2018 at Unknown [...] GLUCOSE 171 (H) 74 - 99 mg/dL VIDEO AND SOUND RECORDER NAME MANDO AYLA LIPID PANEL Result Value [...] (polycystic ovarian syndrome)-aware. 5. Hypothyroidism-continue Synthroid from [employer]. 6. Chylomicronemia syndrome-noted, see #1 7. Tobacco [...] with some difficulty- documented in Doc Flowsheets ([employer]). Peripheral IV appropriate at this time-for fluids. [...] Sellers MD 500 mg at 08/01/182111 ??? gwceyqk-iqywju-jbebgiac [facility] 12 60-12-38 per capsule 2 Capsule 2 [...] Daily BEDTIME Sanjuana Sellers MD ??? Fish Oil-[place]-3 Fatty Acids 360-1,200 mg capsule 1 Capsule [...] HYSTERECTOMY partial due to endometriosis 2006 ??? [place] ESOPHAGOGASTRODUODENOSCOPY TRANSORAL DIAGNOSTIC N/A 03/08/2018 ESOPHAGOGASTRODUODENOSCOPY performed by Ceasar Vega MD at [facility] Social History Substance Use Topics [...] humalog ssi qac. Pain control as per [facility] hospitalist. Check fasting lipid panel in am. [...] 16 u PM : 22 u . tmbckjn-fyflvw-jtrmqriq DR (CREON) 60-12-38 capsule Take 2 Capsules [...] mg by mouth 2 times daily . Oikev9-DmrX4-M07-E-FA-Fish Oil [phone] jt-no-ptd-mcg Capsule Take 2 Caplets by mouth 2 [...] GLUCOSE - Abnormal POC GLUCOSE 171 (*) VIDEO AND SOUND RECORDER NAME AYLA GILMORE LIPASE - Normal LIPASE [...] 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 DICTATION LOCATION: Location 1 - [facility] PROCEDURES Procedures MEDICAL DECISION MAKING AND PLAN OF CARE --Upon initial evaluation, discussed with patient the plan for pain medications. 1:30 AM: Discussed with Dr. Duque ([facility] Hospitalist) who will admit to Medical [...] 16 u PM : 22 u . daosrpn-vzjbxd-onneruwl DR (CREON) 60-12-38 capsule Take 2 Capsules [...] mg by mouth 2 times daily . Soenj2-OxtD8-G10-E-FA-Fish Oil [phone] mn-pp-xqq-mcg Capsule Take 2 Caplets by mouth 2 [...] to Q6H. Pt up independent in room. yam curer initiated for continuous pulse oximetry. Will continue to monitor. Undress and Assess performed by: CLAU Montalvokeypuncher or upon transfer to: [facility] ~~~~~~~~~~~~~~~~~~~~~~~~~~~~ Is the patient [...] [facility] [address] [place] [address] Marlys Mayer MD [address] [place] [address] documented as of this encounter Procedures Procedure [...] - 99 mg/dL 08/03/2018 10:23 AM CDT [facility] VIDEO AND SOUND RECORDER NAME POC KATI DUMONT 08/03/2018 10:23 AM CDT [facility] [employer] [facility] Whole blood specimen (specimen) 08/03/2018 10:10 AM CDT 08/03/2018 10:22 AM CDT Sanjuana Sellers MD POINT OF CARE TESTI [facility] [employer] [facility]# [id number] [address] [place] [address] * (ABNORMAL) TRIGLYCERIDE (08/03/2018 4:31 AM CDT) TRIGLYCERIDE 677(H) <150 mg/dL 08/03/2018 5:53 AM CDT [facility] [employer] [facility] Blood Venipuncture / Unknown 08/03/2018 4:31 AM CDT 08/03/2018 4:40 AM CDT Narrative [facility] - 08/03/2018 5:53 AM CDT TRIGLYCERIDES ? mg/dL Normal ?< 150 Borderline High ?150 - 199 High ? 200 - 499 Very High ? >= 500 Based on AHA/NCEP Guidelines. Sanjuana Sellers MD CHEMISTRY ORDERABLE S [facility] LABORATORY SERVICES - [facility] [place]# [id number] [address] [facility] [place] [address] * (ABNORMAL) BASIC METABOLIC PANEL (08/03/2018 4:31 AM CDT) SODIUM 140 136 - 145 mmol/L 08/03/2018 5:53 AM CDT [facility] [employer] [facility] LABORATORY SERVICES - . [place] POTASSIUM 3.6 3.5 - 5.0 mmol/L 08/03/2018 5:53 AM CDT [facility] CHLORIDE 102 98 - 107 mmol/L 08/03/2018 5:53 AM CDT [facility] CO2 28 22 - 29 mmol/L 08/03/2018 5:53 AM CDT [facility] CALCIUM 8.6 8.6 - 10.2 mg/dL 08/03/2018 5:53 AM CDT [facility] BUN 6 6 - 20 mg/dL 08/03/2018 5:53 AM CDT [facility] CREATININE 0.62 0.51 - 0.95 mg/dL 08/03/2018 5:53 AM T [facility] GLUCOSE 151(H) 74 - 99 mg/dL 08/03/2018 5:53 AM CDT [facility] GFR >60 >=60 mL/min/1.7 3 sq meter 08/03/2018 5:53 AM CDT [facility] Comment: eGFR [...] 3 sq meter 08/03/2018 5:53 AM CDT [facility] LABORATORY SERVICES [facility] ANION GAP 10 8 - 16 mmol/L 08/03/2018 5:53 AM CDT [facility] LABORATORY SERVICES [facility] Blood Venipuncture / Unknown 08/03/2018 4:31 AM CDT 08/03/2018 4:40 AM CDT Snajuana Sellers MD CHEMISTRY ORDERABLE S Performing Organization Address [facility]/ZIP Co de Phone Number [facility]# [id number] [address] [place] [address] * (ABNORMAL) POC GLUCOSE (08/02/2018 8:07 PM CDT) GLUCOSE POC 158(H) 74 - 99 mg/dL 08/02/2018 8:26 PM CDT [facility]OR[facility]ORY [facility] VIDEO AND SOUND RECORDER NAME FANY AKHTAR 08/02/2018 8:26 PM CDT [facility] Whole blood specimen (specimen) 08/02/2018 8:07 PM CDT 08/02/2018 8:26 PM CDT Sanjuana Sellers MD POINT OF CARE TESTI NG Performing Organization Address [facility]/ZIP Co de Phone Number [facility]# [id number] [address] [place] [address] * (ABNORMAL) POC GLUCOSE (08/02/2018 6:10 PM CDT) GLUCOSE POC 189(H) 74 - 99 mg/dL 08/02/2018 6:22 PM CDT [facility] LABORATORY SERVICES - [facility] VIDEO AND SOUND RECORDER NAME POC JUJU ARGUELLO 08/02/2018 6:22 PM CDT [facility] LABORATORY SERVICES - [facility] Whole blood specimen (specimen) 08/02/2018 6:10 PM CDT 08/02/2018 6:22 PM CDT Sanjuana Sellers MD POINT OF CARE TESTI NG Performing Organization Address [facility] Co de Phone Number [facility] [id number] [address] [facility] [address] [place] [address] * (ABNORMAL) POC GLUCOSE (08/02/2018 12:05 PM CDT) GLUCOSE POC 152(H) 74 - 99 mg/dL 08/02/2018 5:46 PM CDT [facility] LABORATORY SERVICES - [facility] COMMENT, GLU POC Notified RN/ 08/02/2018 5:46 PM CDT [facility] LABORATORY SERVICES - [facility] VIDEO AND SOUND RECORDER NAME POC RAFAELA COOPER 08/02/2018 5:46 PM CDT [facility] LABORATORY SERVICES [facility] Whole blood specimen (specimen) 08/02/2018 12:05 PM CDT 08/02/2018 5:46 PM CDT Sanjuana Sellers MD POINT OF CARE TESTChris NG Performing Organization Address [facility] Co de Phone Number [facility] LABORATORY SERVICES [facility]# [id number] [address] [place] [address] [address] [place] [address] * (ABNORMAL) POC GLUCOSE (08/02/2018 9:27 AM CDT) GLUCOSE POC 134(H) 74 - 99 mg/dL 08/02/2018 9:40 AM CDT [employer] LABORATORY SERVICES [facility] COMMENT, GLU POC Notified RN/ 08/02/2018 9:40 AM CDT [facility] LABORATORY SERVICES - [facility] VIDEO AND SOUND RECORDER NAME POC RAFAELA COOPER 08/02/2018 9:40 AM CDT [facility] Whole blood specimen (specimen) 08/02/2018 9:27 AM CDT 08/02/2018 9:40 AM CDT Sanjuana Sellers MD POINT OF CARE TESTI NG [facility] CLIA# [id number] [address] [place] [address] * EKG 12-LEAD (08/02/2018 8:41 AM CDT) 08/02/2018 8:41 AM CDT Narrative INTERFACE SYSTEM - 08/03/2018 10:50 AM CDT ? Stationary ECG Study ? [facility] ? Test Date: ?08/02/2018 8:41 AM Pat Name: ? CASANDRA DOSS ?Department: ?? 45 ?Room: ? 5324 Gender: ? F ?Stapler Coil Unit: ?? marbd1 : ?1975 ? Requested By: JAM MARTINEZ Order Number: [id number] ?Nato CARNEY: ?? Jovany Christie ? Measurements Intervals ?[place] ? Rate: ? 75 ? P: ?51 [place]: ? 172 ?QRS: ?36 QRSD: ? 88 ? T: ?-13 QT: ? 382 ? QTc: ?427 ? Interpretive Statements ? Sinus rhythm Low voltage, precordial leads Borderline T abnormalities, diffuse leads Electronically Signed On 08-03-2018 10:50:50 CDT by Jovany Christie Procedure Jovany Hernandez MD - 09/23/2020 Stationary ECG Study [facility] Test Date: 08/02/2018 8:41 AM Pat Name: CASANDRA DOSS Department: 45 Room: 5324 Gender: F Stapler Coil Unit: marbd1 : 1975 Requested By: JAM MARTINEZ Order Number: [id number] Nato MD: Jovany Christie Measurements Intervals [place] Rate: 75 P: 51 OH: 172 QRS: 36 QRSD: 88 T: -13 QT: 382 QTc: 427 Interpretive Statements Sinus rhythm Low voltage, precordial leads Borderline T abnormalities, diffuse leads Electronically Signed On 08-03-2018 10:50:50 CDT by Jovany Christie Sanjuana Sellers MD ECG ORDERABLES INTERFACE SYSTEM Refer to clinic/hospital department * (ABNORMAL) POC GLUCOSE (08/02/2018 5:52 AM CDT) GLUCOSE POC 136(H) 74 - 99 mg/dL 08/02/2018 6:07 AM CDT [facility] LABORATORY SERVICES [facility] COMMENT, GLU POC Notified RN/MD 08/02/2018 6:07 AM CDT [facility] LABORATORY [facility] VIDEO AND SOUND RECORDER NAME POC TYE VALEDZ 08/02/2018 6:07 AM CDT [facility] LABOR[facility]ORY [facility] Whole blood specimen (specimen) 08/02/2018 5:52 AM CDT 08/02/2018 6:07 AM CDT Sanjuana Sellers MD POINT OF CARE TESTI NG Performing Organization Address City/[facility]/ZIP Co de Phone Number [facility] [employer] [facility]# [id number] [address] [facility] [place] [address] * (ABNORMAL) TRIGLYCERIDE (08/02/2018 4:50 AM CDT) TRIGLYCERIDE 717(H) <150 mg/dL 08/02/2018 5:48 AM CDT [facility] LABORATORY [facility] Blood Venipuncture / Unknown 08/02/2018 4:50 AM CDT 08/02/2018 4:59 AM CDT Narrative [facility] LABORATORY [facility] - 08/02/2018 5:48 AM CDT TRIGLYCERIDES ? mg/dL Normal ?< 150 Borderline High ?150 - 199 High ? 200 - 499 Very High ? >= 500 Based on AHA/NCEP Guidelines. Sanjuana Sellers MD CHEMISTRY ORDERABLE S [facility] LABORATORY SERVICES - [facility] CLIA# [id number] [address] [facility] [place] [address] * (ABNORMAL) CBC WITH DIFFERENTIAL (08/02/2018 4:50 AM CDT) [facility] WBC 6.4 4.0 - 9.8 K/uL 08/02/2018 7:54 AM CDT [employer] LABORATORY SERVICES - [facility] RBC 3.76(L) 3.90 - 4.90 M/uL 08/02/2018 7:54 AM CDT [employer] LABORATORY SERVICES - [facility] HEMOGLOBIN 11.3(L) 11.8 - 14.8 g/dL 08/02/2018 7:54 AM CDT [facility] [employer] [facility] [employer] LABORATORY SERVICES - [facility] HEMATOCRIT 34.8(L) 35.5 - 44.0 % 08/02/2018 7:54 AM CDT [facility] [employer] [facility] LABORATORY SERVICES - [facility] MCV 92.6 82.0 - 99.0 fL 08/02/2018 7:54 AM CDT [facility] [employer] [facility] LABORATORY SERVICES - [facility] MCH 30.1 27.2 - 32.6 pg 08/02/2018 7:54 AM CDT [facility] [employer] [facility] LABORATORY SERVICES - [facility] MCHC 32.5 31.5 - 35.5 g/dL 08/02/2018 7:54 AM CDT [facility] [employer] [facility] LABORATORY SERVICES - [facility] RDW 13.5 11.5 - 14.5 % 08/02/2018 7:54 AM CDT [facility] [employer] [facility] LABORATORY SERVICES - [facility] RDW-STDEV 45.8 37.1 - 48.7 fL 08/02/2018 7:54 AM CDT [facility] [employer] [facility] LABORATORY SERVICES - [facility] PLATELETS 180 140 - 350 K/uL 08/02/2018 7:54 AM CDT [facility] [employer] [facility]ATORY SERVICES - [facility] MPV 9.5 9.3 - 12.4 fL 08/02/2018 7:54 AM CDT [facility] [employer] LABORATORY SERVICES - [facility] NEUTROPHILS 57 % 08/02/2018 7:54 AM CDT [facility] LABORATORY [facility] - . [facility] LYMPHOCYTES 35 % 08/02/2018 7:54 AM CDT [facility] - . [facility] MONOCYTES 6 % 08/02/2018 7:54 AM CDT [facility] SERVICES - . [facility] EOSINOPHILS 1 % 08/02/2018 7:54 AM CDT [facility] - . [facility] BASOPHILS 0 % 08/02/2018 7:54 AM CDT [facility] - . [facility] IMMATURE GRANULOCYTES 1 % 08/02/2018 7:54 AM CDT [facility] LABORATORY SERVICES - . [facility] Comment:IG (Immature Granulo cyte) count includes Metamyelocytes, Myelocytes, and Promyelocytes NEUTROPHIL ABSOLUTE 3.65 1.90 - 7.00 K/uL 08/02/2018 7:54 AM CDT [facility] - . [facility] LYMPHOCYTE ABSOLUTE 2.27 0.70 - 4.50 K/uL 08/02/2018 7:54 AM CDT [facility] - . [facility] MONOCYTE ABSOLUTE 0.38 0.10 - 1.30 K/uL 08/02/2018 7:54 AM CDT [facility] - . [facility] EOSINOPHIL ABSOLUTE 0.05 0.00 - 0.70 K/uL 08/02/2018 7:54 AM CDT [facility] LABORATORY SERVICES - . [facility] BASOPHILS ABSOLUTE 0.02 0.00 - 0.20 K/uL 08/02/2018 7:54 AM CDT [facility] - . [facility] IMMATURE GRANULOCYTES ABSOLUTE 0.04(H) 0.00 - 0.03 K/uL 08/02/2018 7:54 AM T [facility] Blood Venipuncture / Unknown 08/02/2018 4:50 AM CDT 08/02/2018 4:59 AM CDT Sanjuana Sellers MD HEMATOLOGY ORDERABL ES [facility] CLIA# [id number] [address] [facility] [place] [address] * (ABNORMAL) COMPREHENSIVE METABOLIC PANEL (08/02/2018 4:50 AM CDT) [facility] SODIUM 139 136 - 145 mmol/L 08/02/2018 5:48 AM [employer] [facility]ORATORY SERVICES - [facility] POTASSIUM 3.5 3.5 - 5.0 mmol/L 08/02/2018 5:48 AM [facility] CHLORIDE 103 98 - 107 mmol/L 08/02/2018 5:48 AM [facility] CO2 26 22 - 29 mmol/L 08/02/2018 5:48 AM [facility] CALCIUM 8.4(L) 8.6 - 10.2 mg/dL 08/02/2018 5:48 AM [facility] BUN 3(L) 6 - 20 mg/dL 08/02/2018 5:48 AM [facility] CREATININE 0.58 0.51 - 0.95 mg/dL 08/02/2018 5:48 AM [employer] SERVICES - [facility] GLUCOSE 144(H) 74 - 99 mg/dL 08/02/2018 5:48 AM [employer] LABORATORY SERVICES - [facility] TOTAL PROTEIN 5.8(L) 6.7 - 8.6 g/dL 08/02/2018 5:48 AM [facility] ALBUMIN 3.8 3.5 - 5.2 g/dL 08/02/2018 5:48 AM [facility] [facility] BILIRUBIN TOTAL 0.2(L) 0.3 - 1.2 mg/dL 08/02/2018 5:48 AM [employer] LABORATORY SERVICES - [facility] ALKALINE PHOSPHATASE 39 35 - 104 U/L 08/02/2018 5:48 AM [employer] [facility]ORY [facility] AST 14 <33 U/L 08/02/2018 5:48 AM [employer] [facility]ATORY SERVICES - [facility] ALT 9 <34 U/L 08/02/2018 5:48 AM [employer] LABORATORY SERVICES - . [facility] GFR >60 >=60 mL/min/1.7 3 sq meter 08/02/2018 5:48 AM [employer] LABORATORY SERVICES - . [facility] Comment: eGFR has [...] 3 sq meter 08/02/2018 5:48 AM CDT [employer] LABORATORY SERVICES [facility] ANION GAP 10 8 - 16 mmol/L 08/02/2018 5:48 AM CDT [facility] LABORATORY [facility] Blood Venipuncture / Unknown 08/02/2018 4:50 AM CDT 08/02/2018 4:59 AM CDT Narrative [facility] LABORATORY SERVICES [facility] - 08/02/2018 5:48 AM CDT Samples containing indocyanine green cause interferences on Total and/or Direct Bilirubin and must not be measured. Sanjuana Sellers MD CHEMISTRY ORDERABLE S Performing Organization Address [facility] Co de Phone Number [facility] [employer] [facility]# [id number] [address] [place] [address] * (ABNORMAL) POC GLUCOSE (08/02/2018 2:17 AM CDT) GLUCOSE POC 155(H) 74 - 99 mg/dL 08/02/2018 2:32 AM CDT [facility] LABORATORY SERVICES [facility] VIDEO AND SOUND RECORDER NAME POC FANY PAUL 08/02/2018 2:32 AM CDT [facility] LABORATORY [facility] Whole blood specimen (specimen) 08/02/2018 2:17 AM CDT 08/02/2018 2:31 AM CDT Sanjuana Sellers MD POINT OF CARE TESTI NG Performing Organization Address City/[facility]/ZIP Co de Phone Number [facility] [employer] [facility] CLIA# [id number] [address] [place] [address] * (ABNORMAL) POC GLUCOSE (08/01/2018 11:13 PM CDT) GLUCOSE POC 141(H) 74 - 99 mg/dL 08/01/2018 11:27 PM CDT [facility] LABORATORY SERVICES [facility] COMMENT, GLU POC Notified RN/MD 08/01/2018 11:27 PM CDT [facility] LABORATORY SERVICES [facility] [employer]IDEO AND SOUND RECORDER NAME POC TYE VALDEZ 08/01/2018 11:27 PM CDT [facility] LABORATORY SERVICES [facility] Whole blood specimen (specimen) 08/01/2018 11:13 PM CDT 08/01/2018 11:27 PM CDT Sanjuana Sellers MD POINT OF CARE TESTChris WOLF Performing Organization Address City/[facility]/ZIP Co de Phone Number [facility] LABORATORY [facility] CLIA# [id number] [address] [place] [address] * (ABNORMAL) POC GLUCOSE (08/01/2018 9:53 PM CDT) GLUCOSE POC 158(H) 74 - 99 mg/dL 08/01/2018 10:06 PM CDT [facility] LABORATORY [facility] VIDEO AND SOUND RECORDER NAME POC ZAINAB HART 08/01/2018 10:06 PM CDT [facility] LABORATORY [facility] Whole blood specimen (specimen) 08/01/2018 9:53 PM CDT 08/01/2018 10:06 PM CDT Sanjuana Sellers MD POINT OF CARE TESTChris WOLF [facility] LABORATORY [facility] CLIA# [id number] [address] [place] [address] * (ABNORMAL) POC GLUCOSE (08/01/2018 8:01 PM CDT) GLUCOSE POC 166(H) 74 - 99 mg/dL 08/01/2018 8:18 PM CDT [facility] LABORATORY SERVICES - [facility] VIDEO AND SOUND RECORDER NAME POC YULIANA GAFFNEY 08/01/2018 8:18 PM CDT [facility] LABORATORY SERVICES [facility] Whole blood specimen (specimen) 08/01/2018 8:01 PM CDT 08/01/2018 8:18 PM CDT Sanjuana Sellers MD POINT OF CARE TESTI LUCIANO Performing Organization Address [facility] Phone Number [facility] LABORATORY [facility]# [id number] [address] [place] [address] [place] [address] * (ABNORMAL) POC GLUCOSE (08/01/2018 3:45 PM CDT) GLUCOSE POC 145(H) 74 - 99 mg/dL 08/01/2018 3:57 PM CDT [facility] LABORATORY SERVICES [facility] COMMENT, GLU POC Notified RN/ 08/01/2018 3:57 PM CDT [facility] LABORATORY SERVICES [facility] VIDEO AND SOUND RECORDER NAME POC AMANDA CARDONA 08/01/2018 3:57 PM CDT [facility] LABORATORY SERVICES [facility] Whole blood specimen (specimen) 08/01/2018 3:45 PM CDT 08/01/2018 3:57 PM CDT Sanjuana Sellers MD POINT OF CARE TESTChris WOLF Performing Organization Address [facility] Phone Number [facility] LABORATORY [facility]# [id number] [address] [place] [address] [place] [address] * (ABNORMAL) POC GLUCOSE (08/01/2018 12:10 PM CDT) GLUCOSE POC 124(H) 74 - 99 mg/dL 08/01/2018 12:26 PM CDT [facility] LABORATORY SERVICES [facility] COMMENT, GLU POC Notified RN/ 08/01/2018 12:26 PM CDT [facility] LABORATORY SERVICES [facility] VIDEO AND SOUND RECORDER NAME POC GWEN CARDONAE 08/01/2018 12:26 PM CDT [facility] LABORATORY SERVICES [facility] Whole blood specimen (specimen) 08/01/2018 12:10 PM CDT 08/01/2018 12:26 PM CDT Sanjuana Sellers MD POINT OF CARE TESTChris WOLF Performing Organization Address [facility] Co de Phone Number [facility]# [id number] [address] [place] [address] * (ABNORMAL) POC GLUCOSE (08/01/2018 8:16 AM CDT) GLUCOSE POC 125(H) 74 - 99 mg/dL 08/01/2018 8:31 AM CDT [facility] LABORATORY SERVICES [facility] COMMENT, GLU POC Notified RN/MD 08/01/2018 8:31 AM CDT [facility] LABORATORY SERVICES [facility] VIDEO AND SOUND RECORDER NAME POC AMANDA CARDONA 08/01/2018 8:31 AM CDT [facility] LABORATORY [facility] Whole blood specimen (specimen) 08/01/2018 8:16 AM CDT 08/01/2018 8:31 AM CDT Sanjuana Sellers MD POINT OF CARE TESTChris WOLF Performing Organization Address [facility]/ZIP Co de Phone Number [facility] [employer] [facility]# [id number] [address] [place] [address] * (ABNORMAL) TRIGLYCERIDE (08/01/2018 4:09 AM CDT) TRIGLYCERIDE 739(H) <150 mg/dL 08/01/2018 4:53 AM CDT [facility] LABORATORY [facility] Blood Venipuncture / Unknown 08/01/2018 4:09 AM CDT 08/01/2018 4:16 AM CDT Narrative [facility] LABORATORY [facility] - 08/01/2018 4:53 AM CDT TRIGLYCERIDES ? mg/dL Normal ?< 150 Borderline High ?150 - 199 High ? 200 - 499 Very High ? >= 500 Based on AHA/NCEP Guidelines. Sanjuana Sellers MD CHEMISTRY ORDERABLE S [facility] LABORATORY SERVICES - [facility] CLIA# [id number] [address] [facility] [place] [address] * (ABNORMAL) CBC WITH DIFFERENTIAL (08/01/2018 4:09 AM CDT) [facility] WBC 6.9 4.0 - 9.8 K/uL 08/01/2018 4:27 AM CDT [employer] LABORATORY SERVICES - [facility] RBC 3.72(L) 3.90 - 4.90 M/uL 08/01/2018 4:27 AM CDT [employer] LABORATORY SERVICES - [facility] HEMOGLOBIN 11.1(L) 11.8 - 14.8 g/dL 08/01/2018 4:27 AM CDT [employer] LABORATORY SERVICES - [facility] HEMATOCRIT 34.0(L) 35.5 - 44.0 % 08/01/2018 4:27 AM CDT [employer] LABORATORY SERVICES - [facility] MCV 91.4 82.0 - 99.0 fL 08/01/2018 4:27 AM CDT [employer] LABORATORY SERVICES - [facility] MCH 29.8 27.2 - 32.6 pg 08/01/2018 4:27 AM CDT [employer] LABORATORY SERVICES - [facility] MCHC 32.6 31.5 - 35.5 g/dL 08/01/2018 4:27 AM CDT [employer] LABORATORY SERVICES - [facility] RDW 13.8 11.5 - 14.5 % 08/01/2018 4:27 AM CDT [employer] LABORATORY SERVICES - [facility] RDW-STDEV 47.2 37.1 - 48.7 fL 08/01/2018 4:27 AM CDT [employer] LABORATORY SERVICES - [facility] PLATELETS 170 140 - 350 K/uL 08/01/2018 4:27 AM CDT [employer] LABORATORY SERVICES - [facility] MPV 9.2(L) 9.3 - 12.4 fL 08/01/2018 4:27 AM CDT [employer] LABORATORY SERVICES - [facility] NEUTROPHILS 57 % 08/01/2018 4:27 AM CDT [employer] LABORATORY SERVICES - [facility] LYMPHOCYTES 36 % 08/01/2018 4:27 AM CDT [employer] LABORATORY SERVICES - [facility] MONOCYTES 6 % 08/01/2018 4:27 AM CDT [facility] LABORATORY SERVICES - [facility] EOSINOPHILS 1 % 08/01/2018 4:27 AM CDT [facility] LABORATORY SERVICES - [facility] BASOPHILS 0 % 08/01/2018 4:27 AM CDT [facility] LABORATORY SERVICES - [facility] IMMATURE GRANULOCYTES 0 % 08/01/2018 4:27 AM CDT [facility] LABORATORY SERVICES - [facility] NEUTROPHIL ABSOLUTE 3.89 1.90 - 7.00 K/uL 08/01/2018 4:27 AM CDT [employer] LABORATORY SERVICES - [facility] LYMPHOCYTE ABSOLUTE 2.47 0.70 - 4.50 K/uL 08/01/2018 4:27 AM CDT [employer] LABORATORY SERVICES - [facility] MONOCYTE ABSOLUTE 0.39 0.10 - 1.30 K/uL 08/01/2018 4:27 AM CDT [employer] LABORATORY SERVICES - [facility] EOSINOPHIL ABSOLUTE 0.06 0.00 - 0.70 K/uL 08/01/2018 4:27 AM CDT [employer] LABORATORY SERVICES - [facility] BASOPHILS ABSOLUTE 0.02 0.00 - 0.20 K/uL 08/01/2018 4:27 AM T [employer] LABORATORY SERVICES - [facility] IMMATURE GRANULOCYTES ABSOLUTE 0.03 0.00 - 0.03 K/uL 08/01/2018 4:27 AM T [employer] LABORATORY SERVICES - [facility] Blood Venipuncture / Unknown 08/01/2018 4:09 AM CDT 08/01/2018 4:16 AM CDT Sanjuana Sellers MD HEMATOLOGY ORDERABL ES [facility] SERVICES [facility]# [id number] [address] [place] [address] * (ABNORMAL) COMPREHENSIVE METABOLIC PANEL (08/01/2018 4:09 AM CDT) SODIUM 137 136 - 145 mmol/L 08/01/2018 4:55 AM CDT [employer] LABORATORY SERVICES - [facility] POTASSIUM 3.6 3.5 - 5.0 mmol/L 08/01/2018 4:55 AM [facility] [employer] LABORATORY SERVICES - [facility] CHLORIDE 106 98 - 107 mmol/L 08/01/2018 4:55 AM [facility] [employer] LABORATORY SERVICES - [facility] CO2 24 22 - 29 mmol/L 08/01/2018 4:55 AM [facility] [employer] LABORATORY SERVICES - . [facility] CALCIUM 8.0(L) 8.6 - 10.2 mg/dL 08/01/2018 4:55 AM [facility] [employer] LABORATORY SERVICES - [facility] Comment:Significant change f rom prior result, correlate clinically and redraw if necessary. BUN 3(L) 6 - 20 mg/dL 08/01/2018 4:55 AM [facility] [employer] [facility]. [facility] CREATININE 0.49(L) 0.51 - 0.95 mg/dL 08/01/2018 4:55 AM [facility] [employer] [facility] - . [facility] GLUCOSE 106(H) 74 - 99 mg/dL 08/01/2018 4:55 AM [facility] [employer] LABORATORY [facility] - . [facility] TOTAL PROTEIN 5.4(L) 6.7 - 8.6 g/dL 08/01/2018 4:55 AM [facility] [employer] LABORATORY [facility] - . [facility] ALBUMIN 3.7 3.5 - 5.2 g/dL 08/01/2018 4:55 AM [facility] [employer] LABORATORY [facility] - . [facility] BILIRUBIN TOTAL 0.2(L) 0.3 - 1.2 mg/dL 08/01/2018 4:55 AM [facility] [employer] LABORATORY [facility] - [facility] ALKALINE PHOSPHATASE 34(L) 35 - 104 U/L 08/01/2018 4:55 AM [facility] [employer] [facility] - . [facility] AST 10 <33 U/L 08/01/2018 4:55 AM [employer] LABORATORY [facility] - . [facility] ALT 7 <34 U/L 08/01/2018 4:55 AM [facility] [employer] [facility]. [facility] GFR >60 >=60 mL/min/1.7 3 sq meter 08/01/2018 4:55 AM [facility] [employer] LABORATORY SERVICES - [facility] Comment: eGFR [...] 3 sq meter 08/01/2018 4:55 AM CDT [employer] LABORATORY SERVICES [facility] ANION GAP 7(L) 8 - 16 mmol/L 08/01/2018 4:55 AM CDT [facility] LABORATORY [facility] Blood Venipuncture / Unknown 08/01/2018 4:09 AM CDT 08/01/2018 4:16 AM CDT Narrative [facility] LABORATORY SERVICES [facility] - 08/01/2018 4:55 AM CDT Samples containing indocyanine green cause interferences on Total and/or Direct Bilirubin and must not be measured. Sanjuana Sellers MD CHEMISTRY ORDERABLE S Performing Organization Address City/[facility]/ZIP Co de Phone Number [facility]# [id number] [address] [place] [address] * (ABNORMAL) POC GLUCOSE (08/01/2018 3:52 AM CDT) GLUCOSE POC 110(H) 74 - 99 mg/dL 08/01/2018 4:12 AM CDT [facility] LABORATORY SERVICES [facility] VIDEO AND SOUND RECORDER NAME POC PHYLLIS MADERA 08/01/2018 4:12 AM CDT [facility] Whole blood specimen (specimen) 08/01/2018 3:52 AM CDT 08/01/2018 4:12 AM CDT Sanjuana Sellers MD POINT OF CARE TESTI NG Performing Organization Address City/[facility]/ZIP Co de Phone Number [facility] [employer] [facility] CLIA# [id number] [address] [place] [address] * POC GLUCOSE (08/01/2018 12:20 AM CDT) GLUCOSE POC 92 74 - 99 mg/dL 08/01/2018 12:33 AM CDT [facility] LABORATORY SERVICES - [facility] VIDEO AND SOUND RECORDER NAME PHYLLIS GARCÍA 08/01/2018 12:33 AM CDT [facility] LABORATORY SERVICES - [facility] Whole blood specimen (specimen) 08/01/2018 12:20 AM CDT 08/01/2018 12:33 AM CDT Sanjuana Sellers MD POINT OF CARE TESTI LUCIANO [facility] LABORATORY [facility] CLIA# [id number] [address] [place] [address] * POC GLUCOSE (07/31/2018 8:05 PM CDT) GLUCOSE POC 98 74 - 99 mg/dL 07/31/2018 8:27 PM CDT [facility] LABORATORY SERVICES [facility] VIDEO AND SOUND RECORDER NAME PHYLLIS GARCÍA 07/31/2018 8:27 PM CDT [facility] LABORATORY SERVICES [facility] Whole blood specimen (specimen) 07/31/2018 8:05 PM CDT 07/31/2018 8:27 PM CDT Sanjuana Sellers MD POINT OF CARE TESTI NG [facility] LABORATORY [facility] CLIA# [id number] [address] [place] [address] * POC GLUCOSE (07/31/2018 5:02 PM CDT) GLUCOSE POC 83 74 - 99 mg/dL 07/31/2018 5:16 PM CDT [facility] LABORATORY SERVICES [facility] VIDEO AND SOUND RECORDER NAME JEFF ZAVALA 07/31/2018 5:16 PM CDT [facility] LABORATORY SERVICES [facility] Whole blood specimen (specimen) 07/31/2018 5:02 PM CDT 07/31/2018 5:16 PM CDT Sanjuana Sellers MD POINT OF CARE TESTI NG [facility] LABORATORY [facility] CLIA# [id number] [address] [place] [address] * POC GLUCOSE (07/31/2018 4:09 PM CDT) GLUCOSE POC 78 74 - 99 mg/dL 07/31/2018 4:21 PM CDT [facility] LABORATORY SERVICES [facility] VIDEO AND SOUND RECORDER NAME POC JEFF TORRES 07/31/2018 4:21 PM CDT [facility] LABORATORY SERVICES [facility] Whole blood specimen (specimen) 07/31/2018 4:09 PM CDT 07/31/2018 4:21 PM CDT Sanjuana Sellers MD POINT OF CARE TESTI NG Performing Organization Address [facility]/ZIP Co de Phone Number [facility] [employer] [facility] CLIA# [id number] [address] [place] [address] * (ABNORMAL) POC GLUCOSE (07/31/2018 12:45 PM CDT) GLUCOSE POC 104(H) 74 - 99 mg/dL 07/31/2018 1:54 PM CDT [facility] LABORATORY SERVICES [facility] VIDEO AND SOUND RECORDER NAME POC JEFF TORRES 07/31/2018 1:54 PM CDT [facility] LABORATORY SERVICES [facility] Whole blood specimen (specimen) 07/31/2018 12:45 PM CDT 07/31/2018 1:54 PM CDT Sanjuana Sellers MD POINT OF CARE TESTI NG Performing Organization Address City/[facility]/ZIP Co de Phone Number [facility] LABORATORY [facility] CLIA# [id number] [address] [place] [address] * PROTIME-INR (07/31/2018 9:36 AM CDT) Pathologist [facility] PROTIME 13.2 12.7 - 15.1 Seconds 07/31/2018 10:13 AM CDT [facility] LABORATORY [facility] INR 1.0 0.9 - 1.1 07/31/2018 10:13 AM CDT [facility] LABORATORY [facility] Blood Venipuncture / Unknown 07/31/2018 9:36 AM CDT 07/31/2018 9:42 AM CDT Narrative [facility] LABORATORY [facility] - 07/31/2018 10:13 AM CDT INR Therapeutic Range: Adult: ?? 2.0 - 3.0 for pulmonary embolism or prophylaxis against venous ?thrombosis or systemic embolization. 2.0 - 3.0 for patients with tissue heart valves. 2.5 - 3.5 for patients with mechanical heart valves or post GA. Pediatric ??(12 years and under): 1.5 - 3.0 Although the target range in children is not well established, ?INR values of 1.5 - 3.0 are recommended for most patients. ?Higher values have been used in children with prosthetic ?cardiac valves and hereditary clotting disorders. (<3 days) therapeutic ranges have not been established. Alize Arteaga MD HEMATOLOGY YONI SERRANO [facility] Organization Address City/State/ZIP Co de Phone Number [facility] [employer] [facility]# [id number] [address] [facility] [address] [place] [address] * (ABNORMAL) POC GLUCOSE (07/31/2018 9:35 AM CDT) Pathologist [facility] GLUCOSE POC 108(H) 74 - 99 mg/dL 07/31/2018 10:02 AM CDT [facility] LABORATORY [facility] VIDEO AND SOUND RECORDER NAME POC JEFF TORRES 07/31/2018 10:02 AM CDT [facility] LABORATORY [facility] Whole blood specimen (specimen) 07/31/2018 9:35 AM CDT 07/31/2018 10:02 AM CDT Sanjuana Sellers MD POINT OF CARE TESTI NG Performing Organization Address [facility] de Phone Number [facility]# [id number] [address] [place] [address] * LACTIC ACID (07/31/2018 3:20 AM CDT) LACTIC ACID 1.1 0.5 - 2.0 mmol/L 07/31/2018 3:54 AM CDT [facility] Blood Venipuncture / Unknown 07/31/2018 3:20 AM CDT 07/31/2018 3:28 AM CDT Ericka Leone NP CHEMISTRY ORDERABLES Performing Organization Address [facility] de Phone Number [facility]# [id number] [address] [place] [address] * (ABNORMAL) TRIGLYCERIDE (07/31/2018 3:20 AM CDT) TRIGLYCERIDE 769(H) <150 mg/dL 07/31/2018 4:01 AM CDT [facility] [employer] [facility] Blood Venipuncture / Unknown 07/31/2018 3:20 AM CDT 07/31/2018 3:29 AM CDT Narrative [facility] [employer] [facility] - 07/31/2018 4:01 AM CDT TRIGLYCERIDES ? mg/dL Normal ?< 150 Borderline High ?150 - 199 High ? 200 - 499 Very High ? >= 500 Based on AHA/NCEP Guidelines. Sanjuana Sellers MD CHEMISTRY ORDERABLE S Performing Organization Address [facility] Phone Number [employer] LABORATORY SERVICES - [facility] CLIA# [id number] [address] [place] [address] * (ABNORMAL) CBC WITH DIFFERENTIAL (07/31/2018 3:20 AM CDT) [facility] Signature WBC 5.8 4.0 - 9.8 K/uL 07/31/2018 3:38 AM CDT [employer] LABORATORY SERVICES - [facility] RBC 3.54(L) 3.90 - 4.90 M/uL 07/31/2018 3:38 AM CDT [employer] LABORATORY SERVICES - [facility] HEMOGLOBIN 11.0(L) 11.8 - 14.8 g/dL 07/31/2018 3:38 AM CDT [employer] LABORATORY SERVICES - [facility] HEMATOCRIT 33.2(L) 35.5 - 44.0 % 07/31/2018 3:38 AM CDT [employer] LABORATORY SERVICES - . [facility] MCV 93.8 82.0 - 99.0 fL 07/31/2018 3:38 AM CDT [employer] LABORATORY SERVICES - [facility] MCH 31.1 27.2 - 32.6 pg 07/31/2018 3:38 AM CDT [employer] LABORATORY SERVICES - . [facility] MCHC 33.1 31.5 - 35.5 g/dL 07/31/2018 3:38 AM CDT [employer] LABORATORY SERVICES - [facility] RDW 14.0 11.5 - 14.5 % 07/31/2018 3:38 AM CDT [employer] LABORATORY SERVICES - . [facility] RDW-STDEV 48.3 37.1 - 48.7 fL 07/31/2018 3:38 AM CDT [employer] LABORATORY SERVICES - [facility] PLATELETS 140 140 - 350 K/uL 07/31/2018 3:38 AM CDT [employer] LABORATORY SERVICES - [facility] MPV 10.3 9.3 - 12.4 fL 07/31/2018 3:38 AM CDT [employer] LABORATORY SERVICES - [facility] NEUTROPHILS 50 % 07/31/2018 3:38 AM CDT [employer] LABORATORY SERVICES - [facility] LYMPHOCYTES 40 % 07/31/2018 3:38 AM CDT [employer] LABORATORY SERVICES - [facility] MONOCYTES 8 % 07/31/2018 3:38 AM CDT [employer] LABORATORY SERVICES - [facility] EOSINOPHILS 1 % 07/31/2018 3:38 AM CDT [facility] LABORATORY SERVICES - [facility] BASOPHILS 0 % 07/31/2018 3:38 AM CDT [facility] LABORATORY SERVICES - [facility] IMMATURE GRANULOCYTES 1 % 07/31/2018 3:38 AM CDT [facility] LABORATORY SERVICES [facility] Comment:IG (Immature Granulo cyte) count includes Metamyelocytes, Myelocytes, and Promyelocytes NEUTROPHIL ABSOLUTE 2.92 1.90 - 7.00 K/uL 07/31/2018 3:38 AM CDT [facility] LABORATORY SERVICES - [facility] LYMPHOCYTE ABSOLUTE 2.33 0.70 - 4.50 K/uL 07/31/2018 3:38 AM CDT [facility] LABORATORY SERVICES - [facility] MONOCYTE ABSOLUTE 0.47 0.10 - 1.30 K/uL 07/31/2018 3:38 AM CDT [facility] EOSINOPHIL ABSOLUTE 0.05 0.00 - 0.70 K/uL 07/31/2018 3:38 AM CDT [facility] BASOPHILS ABSOLUTE 0.02 0.00 - 0.20 K/uL 07/31/2018 3:38 AM CDT [facility] IMMATURE GRANULOCYTES ABSOLUTE 0.04(H) 0.00 - 0.03 K/uL 07/31/2018 3:38 AM CDT [facility] Blood Venipuncture / Unknown 07/31/2018 3:20 AM CDT 07/31/2018 3:29 AM CDT Sanjuana Sellers MD HEMATOLOGY ORDERABL ES [id number] [address] [id number] * (ABNORMAL) COMPREHENSIVE METABOLIC PANEL (07/31/2018 3:20 AM CDT) SODIUM 138 136 - 145 mmol/L 07/31/2018 4:15 AM CDT [facility] POTASSIUM 4.6 3.5 - 5.0 mmol/L 07/31/2018 [facility] Comment: Moderate hemolysis present. ??Can cause significant falsely elevated result. ??Clinical judgement necessary. ??Redraw if indicated. CHLORIDE 111(H) 98 - 107 mmol/L 07/31/2018 4:15 AM [facility] Comment: Significant change from prior result, correlate clinically and redraw if necessary. Results called to Delaney. Coleman to report 04:14 on 07/31/2018. CO2 20(L) 22 - 29 mmol/L 07/31/2018 4:15 AM [facility] CALCIUM 6.9(L) 8.6 - 10.2 mg/dL 07/31/2018 4:15 AM [facility] Comment: Significant change from prior result, correlate clinically and redraw if necessary. Results called to Delaney. Coleman to report 04:14 on 07/31/2018. BUN 5(L) 6 - 20 mg/dL 07/31/2018 4:15 AM [facility] [employer] [facility] CREATININE 0.48(L) 0.51 - 0.95 mg/dL 07/31/2018 4:15 AM [facility] GLUCOSE 88 74 - 99 mg/dL 07/31/2018 4:15 AM [facility] TOTAL PROTEIN 4.9(L) 6.7 - 8.6 g/dL 07/31/2018 4:15 AM [facility] [place] ALBUMIN 3.4(L) 3.5 - 5.2 g/dL 07/31/2018 4:15 AM [facility] BILIRUBIN TOTAL 0.5 0.3 - 1.2 mg/dL 07/31/2018 4:15 AM [facility] ALKALINE PHOSPHATASE 21(L) 35 - 104 U/L 07/31/2018 4:15 AM [facility] AST 20 <33 U/L 07/31/2018 4:15 AM [facility] [employer] [facility] [place] Comment: Hemolysis present. Result may be falsely elevated. ALT 7 <34 U/L 07/31/2018 4:15 AM [facility] [employer] [facility] [place] Comment: Hemolysis present. Result may be falsely elevated. GFR >60 >=60 mL/min/1.7 3 sq meter 07/31/2018 4:15 AM T [facility] [employer] [facility] Comment: eGFR has not [...] 3 sq meter 07/31/2018 4:15 AM T [facility] [employer] [facility] ANION GAP 7(L) 8 - 16 mmol/L 07/31/2018 4:15 AM [facility] Blood Venipuncture / Unknown 07/31/2018 3:20 AM CDT 07/31/2018 3:29 AM CDT Narrative [facility] - 07/31/2018 4:15 AM CDT Patient had plasmapheresis yesterday Samples containing indocyanine green cause interferences on Total and/or Direct Bilirubin and must not be measured. Sanjuana Sellers MD CHEMISTRY ORDERABLE S Performing Organization Address City/State/[facility] Co de Phone Number [facility] [employer] [facility]# [id number] [address] [facility] [address] * (ABNORMAL) POC GLUCOSE (07/30/2018 9:25 PM CDT) GLUCOSE POC 137(H) 74 - 99 mg/dL 07/30/2018 9:53 PM T [facility] VIDEO AND SOUND RECORDER NAME POC GRETA MAGDALENO 07/30/2018 9:53 PM [facility] Whole blood specimen (specimen) 07/30/2018 9:25 PM CDT 07/30/2018 9:53 PM CDT Sanjuana Sellers MD POINT OF CARE TESTI LUCIANO Performing Organization Address [facility]/ZIP Co de Phone Number [facility]# [id number] [address] [place] [address] * (ABNORMAL) POC GLUCOSE (07/30/2018 6:51 PM CDT) GLUCOSE POC 130(H) 74 - 99 mg/dL 07/30/2018 7:05 PM CDT [facility] LABORATORY SERVICES [facility] COMMENT, GLU POC Notified RN/MD 07/30/2018 7:05 PM CDT [facility] LABORATORY SERVICES [facility] VIDEO AND SOUND RECORDER NAME POC TRINI CAMARILLO 07/30/2018 7:05 PM CDT [facility] LABORATORY SERVICES [facility] Whole blood specimen (specimen) 07/30/2018 6:51 PM CDT 07/30/2018 7:05 PM CDT Sanjuana Sellers MD POINT OF CARE TESTChris WOLF Performing Organization Address [facility]/ZIP Co de Phone Number [facility] [employer] [facility]# [id number] [address] [place] [address] * PROTIME-INR (07/30/2018 4:15 PM CDT) PROTIME 12.7 12.7 - 15.1 Seconds 07/30/2018 4:49 PM CDT [facility] LABORATORY SERVICES [facility] INR 1.0 0.9 - 1.1 07/30/2018 4:49 PM CDT [facility] LABORATORY SERVICES [facility] Blood Collection / Unknown 07/30/2018 4:15 PM CDT 07/30/2018 4:18 PM CDT Narrative [facility] LABORATORY SERVICES - [facility] - 07/30/2018 4:49 PM CDT INR Therapeutic Range: Adult: ?? 2.0 - 3.0 for pulmonary embolism or prophylaxis against venous ?thrombosis or systemic embolization. 2.0 - 3.0 for patients with tissue heart valves. 2.5 - 3.5 for patients with mechanical heart valves or post GA. Pediatric ??(12 years and under): 1.5 - 3.0 Although the target range in children is not well established, ?INR values of 1.5 - 3.0 are recommended for most patients. ?Higher values have been used in children with prosthetic ?cardiac valves and hereditary clotting disorders. (<3 days) therapeutic ranges have not been established. Alize Arteaga MD HEMATOLOGY YONI SERRANO Performing Organization Address [facility]/ZIP Co de Phone Number [facility] LABORATORY [facility]# [id number] [address] [place] [address] * (ABNORMAL) POC GLUCOSE (07/30/2018 3:30 PM CDT) [facility] GLUCOSE POC 131(H) 74 - 99 mg/dL 07/30/2018 3:43 PM CDT [facility] LABORATORY SERVICES [facility] VIDEO AND SOUND RECORDER NAME POC SAVANA OGLESBY 07/30/2018 3:43 PM CDT [facility] LABORATORY [facility] Whole blood specimen (specimen) 07/30/2018 3:30 PM CDT 07/30/2018 3:43 PM CDT Sanjuana Sellers MD POINT OF CARE TESTI NG Performing Organization Address [facility]/ZIP Co de Phone Number [facility] LABORATORY [facility]# [id number] [address] [place] [place] [address] * IR VENOUS ACCESS (07/30/2018 2:48 PM CDT) Anatomical Region Laterality Modality X-Ray Angiograph y 07/30/2018 2:49 PM CDT Addenda Addendum by Kayla Sheffield MD on 08/24/2018 12:02 AM CDT Fluoroscopy Dose 0mGy/0uGym2 Impressions 07/30/2018 2:55 PM CDT IMPRESSION: Successful temporary/nontunneled central venous dialysis/pheresis catheter placement. PLAN: Catheter ready to use. DICTATION LOCATION: Location 1 - [facility] 07/30/2018 2:55 PM CDT PROCEDURE/EXAM(S): ULTRASOUND/FLUOROSCOPY GUIDED [...] right atrium was measured. A 20 cm Payette pheresis/dialysis catheter was inserted over the guidewire, [...] right atrium was measured. A 20 cm Payette pheresis/dialysis catheter was inserted over the guidewire, [...] to use. DICTATION LOCATION: Location 1 - [facility] Kayla Sheffield MD IR ORDERABLES * (ABNORMAL) POC GLUCOSE (07/30/2018 12:06 PM CDT) GLUCOSE POC 160(H) 74 - 99 mg/dL 07/30/2018 12:24 PM CDT [facility] LABORATORY [facility] VIDEO AND SOUND RECORDER NAME POC SHIRA ZAMORA 07/30/2018 12:24 PM CDT [facility] LABORATORY [facility] Whole blood specimen (specimen) 07/30/2018 12:06 PM CDT 07/30/2018 12:24 PM CDT Sanjuana Sellers MD POINT OF CARE TESTI NG [facility] LABORATORY SERVICES - [facility] KARLEE# [id number] [address] [facility] [place] [address] * (ABNORMAL) COMPREHENSIVE METABOLIC PANEL (07/30/2018 9:22 AM CDT) SODIUM 132(L) 136 - 145 mmol/L 07/30/2018 10:52 AM T [facility]ATORY [facility] POTASSIUM 4.3 3.5 - 5.0 mmol/L 07/30/2018 10:52 AM [facility]ATORY SERVICES - [facility] CHLORIDE 97(L) 98 - 107 mmol/L 07/30/2018 10:52 AM [facility]ATORY SERVICES [facility] CO2 24 22 - 29 mmol/L 07/30/2018 10:52 AM [facility] LABORATORY [facility] CALCIUM 8.3(L) 8.6 - 10.2 mg/dL 07/30/2018 10:52 AM T [facility] LAB[facility]ATORY SERVICES - [facility] BUN 10 6 - 20 mg/dL 07/30/2018 10:52 AM [facility]ATORY SERVICES - [facility] CREATININE 0.58 0.51 - 0.95 mg/dL 07/30/2018 10:52 AM [facility]ATORY SERVICES [facility] GLUCOSE 163(H) 74 - 99 mg/dL 07/30/2018 10:52 AM [facility] LABORATORY [facility] TOTAL PROTEIN 6.5(L) 6.7 - 8.6 g/dL 07/30/2018 10:52 AM [facility] LAB[facility]ATORY SERVICES - [facility] ALBUMIN 3.9 3.5 - 5.2 g/dL 07/30/2018 10:52 AM [facility] LABORATORY SERVICES - [facility] BILIRUBIN TOTAL 0.2(L) 0.3 - 1.2 mg/dL 07/30/2018 10:52 AM [facility] LABORATORY SERVICES [facility] ALKALINE PHOSPHATASE 60 35 - 104 U/L 07/30/2018 10:52 AM [facility] LABORATORY SERVICES - . [facility] AST 14 <33 U/L 07/30/2018 10:52 AM T [facility] LABORATORY [facility] Comment: Hemolysis present. Result may be falsely elevated. ALT 12 <34 U/L 07/30/2018 10:52 AM T [facility] GFR >60 >=60 mL/min/1.7 3 sq meter 07/30/2018 10:52 AM T [facility] Comment: eGFR has not been [...] 3 sq meter 07/30/2018 10:52 AM T [facility] LABORATORY [facility] ANION GAP 11 8 - 16 mmol/L 07/30/2018 10:52 AM [facility] [employer] [facility] Blood Venipuncture / Unknown 07/30/2018 9:22 AM CDT 07/30/2018 9:50 AM CDT Narrative [facility] LABORATORY [facility] - 07/30/2018 10:52 AM CDT Samples containing indocyanine green cause interferences on Total and/or Direct Bilirubin and must not be measured. Sanjuana Sellers MD CHEMISTRY ORDERABLE S [facility] [id number] [address] [place] [address] * (ABNORMAL) CBC WITH DIFFERENTIAL (07/30/2018 9:22 AM CDT) WBC 8.6 4.0 - 9.8 K/uL 07/30/2018 10:10 AM T [facility] [employer] [facility] RBC 4.22 3.90 - 4.90 M/uL 07/30/2018 10:10 AM [employer] LABORATORY SERVICES - [facility] HEMOGLOBIN 12.7 11.8 - 14.8 g/dL 07/30/2018 10:10 AM [employer] LABORATORY SERVICES - [facility] HEMATOCRIT 39.1 35.5 - 44.0 % 07/30/2018 10:10 AM [employer] LABORATORY SERVICES - [facility] MCV 92.7 82.0 - 99.0 fL 07/30/2018 10:10 AM [employer] LABORATORY SERVICES - [facility] MCH 30.1 27.2 - 32.6 pg 07/30/2018 10:10 AM [employer] LABORATORY SERVICES - [facility] MCHC 32.5 31.5 - 35.5 g/dL 07/30/2018 10:10 AM [employer] LABORATORY SERVICES - [facility] RDW 14.2 11.5 - 14.5 % 07/30/2018 10:10 AM [employer] LABORATORY SERVICES - [facility] RDW-STDEV 47.7 37.1 - 48.7 fL 07/30/2018 10:10 AM [employer] LABORATORY SERVICES - [facility] PLATELETS 208 140 - 350 K/uL 07/30/2018 10:10 AM [employer] LABORATORY SERVICES - [facility] MPV 9.5 9.3 - 12.4 fL 07/30/2018 10:10 AM [employer] LABORATORY SERVICES - [facility] NEUTROPHILS 57 % 07/30/2018 10:10 AM [employer] LABORATORY SERVICES - [facility] LYMPHOCYTES 35 % 07/30/2018 10:10 AM [employer] LABORATORY SERVICES - [facility] MONOCYTES 6 % 07/30/2018 10:10 AM [employer] LABORATORY SERVICES - . [facility] EOSINOPHILS 1 % 07/30/2018 10:10 AM [employer] LABORATORY SERVICES - . [facility] BASOPHILS 1 % 07/30/2018 10:10 AM [employer] LABORATORY SERVICES - . [facility] IMMATURE GRANULOCYTES 1 % 07/30/2018 10:10 AM [employer] LABORATORY SERVICES - [facility] Comment:IG (Immature Granulo cyte) count includes Metamyelocytes, Myelocytes, and Promyelocytes NEUTROPHIL ABSOLUTE 4.90 1.90 - 7.00 K/uL 07/30/2018 10:10 AM [employer] LABORATORY SERVICES - [facility] LYMPHOCYTE ABSOLUTE 2.99 0.70 - 4.50 K/uL 07/30/2018 10:10 AM CDT [facility] LABORATORY SERVICES - [facility] MONOCYTE ABSOLUTE 0.54 0.10 - 1.30 K/uL 07/30/2018 10:10 AM CDT [facility] LAB[facility]ATORY SERVICES - [facility] EOSINOPHIL ABSOLUTE 0.07 0.00 - 0.70 K/uL 07/30/2018 10:10 AM CDT [facility] LABORATORY SERVICES - [facility] BASOPHILS ABSOLUTE 0.04 0.00 - 0.20 K/uL 07/30/2018 10:10 AM CDT [facility] LABORATORY SERVICES - . 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 DICTATION LOCATION: Location [address] [place] [address] 07/30/2018 1:[address] ANGIO CHEST [...] 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 DICTATION LOCATION: Location 1 - [facility] Jam Martinez MD CT ORDERABLES * HCG QUALITATIVE, URINE (07/29/2018 11:04 PM CDT) HCG QUAL URINE Negative Negative 07/29/2018 11:53 PM CDT [facility] COLOR UA Yellow Pale to Dark Yellow 07/29/2018 11:53 PM CDT [facility] CLARITY UA Clear Clear 07/29/2018 11:53 PM CDT [facility] Urine URINE SPECIMEN OBTAINED BY CLEAN CATCH PROCEDURE / Unknown Collection / Unknown 07/29/2018 11:04 PM CDT 07/29/2018 11:27 PM CDT Jma Martinez MD URINE ORDERABLES [facility]# [id number] [address] [facility] [place] [address] * (ABNORMAL) URINALYSIS WITH REFLEX MICROSCOPIC (07/29/2018 11:04 PM CDT) COLOR UA Yellow Pale to Dark Yellow 07/29/2018 11:45 PM CDT [facility] LABORATORY SERVICES - [facility] CLARITY UA Clear Clear 07/29/2018 11:45 PM CDT [facility] LABORATORY SERVICES - . [facility] SPECIFIC GRAVITY UA 1.020 1.003 - 1.035 07/29/2018 11:45 PM CDT [facility] LABORATORY SERVICES - . [facility] PH UA 6.0 5.0 - 8.0 07/29/2018 11:45 PM CDT [facility] LABORATORY SERVICES - . [facility] LEUKOCYTE ESTERASE UA Negative Negative 07/29/2018 11:45 PM CDT [facility] LABORATORY SERVICES - . [facility] NITRITE UA Negative Negative 07/29/2018 11:45 PM CDT [facility] LABORATORY SERVICES - . [facility] PROTEIN UA Negative Negative 07/29/2018 11:45 PM CDT [facility] LABORATORY SERVICES - . [facility] GLUCOSE UA Negative Negative 07/29/2018 11:45 PM CDT [facility] LABORATORY SERVICES - . [facility] KETONES UA Trace(A) Negative 07/29/2018 11:45 PM CDT [facility] LABORATORY SERVICES - . [facility] UROBILINOGEN UA Normal <2.0 mg/dL 9 11:45 PM CDT [facility] LABORATORY SERVICES - . [facility] BILIRUBIN UA Negative Negative 07/29/2018 11:45 PM CDT [facility] LABORATORY SERVICES - . [facility] BLOOD UA Negative Negative 07/29/2018 11:45 PM CDT [facility] LABORATORY SERVICES - . [facility] Urine URINE SPECIMEN OBTAINED BY CLEAN CATCH PROCEDURE / Unknown Collection / Unknown 07/29/2018 11:04 PM CDT 07/29/2018 11:27 PM CDT Jam Martinez MD URINE ORDERABLES [facility] LABORATORY SERVICES - [facility] CLIA# [id number] [address] [facility] [place] [address] * (ABNORMAL) LIPID PANEL (07/29/2018 10:56 PM CDT) CHOLESTEROL 458(H) <200 mg/dL 07/30/2018 12:53 AM T [facility] TRIGLYCERIDE 2,792(H) <150 mg/dL 07/30/2018 12:53 AM T [facility] HDL 40 - 59 mg/dL 07/30/2018 12:53 AM T [facility] Comment: Measured HDL is not accurate when the Triglyceride value exceeds 1200. LDL CALCULATED <100 mg/dL 07/30/2018 12:53 AM T [facility] Comment:Calculated LDL is no t accurate when the Triglyceride value exceeds 400. NON-HDL CHOLESTEROL <130 mg/dL 07/30/2018 12:53 AM [facility] Comment:Non HDL Cholesterol cannot be calculated when the HDL value is suppressed. Blood Venipuncture / Unknown 07/29/2018 10:56 PM CDT 07/29/2018 11:00 PM CDT Narrative [facility] - 07/30/2018 12:53 AM CDT TOTAL CHOLESTEROL [...] Panels (NCEP/AMA) Jam Martinez MD CHEMISTRY ORDERABLES [facility]# [id number] [address] [place] [address] * (ABNORMAL) POC GLUCOSE (07/29/2018 10:56 PM CDT) [facility] GLUCOSE POC 171(H) 74 - 99 mg/dL 07/29/2018 11:09 PM CDT [facility] LABORATORY [facility] VIDEO AND SOUND RECORDER NAME POC AYLA GILMORE 07/29/2018 11:09 PM CDT [facility] LABORATORY [facility] Whole blood specimen (specimen) 07/29/2018 10:56 PM CDT 07/29/2018 11:09 PM CDT Interface Provider Poct POINT OF CARE TE STING Performing Organization Address [facility]/ZIP Co de Phone Number [facility] CLIA# [id number] [address] [place] [address] * LIPASE (07/29/2018 10:56 PM CDT) [facility] LIPASE 38 13 - 60 U/L 07/29/2018 11:26 PM CDT [facility] [employer] [facility] Blood Venipuncture / Unknown 07/29/2018 10:56 PM CDT 07/29/2018 11:00 PM CDT Jam Martinez MD CHEMISTRY ORDERABLES Performing Organization Address City/[facility]/ZIP Co de Phone Number [facility] [employer] [facility] [id number] [address] [place] [address] * (ABNORMAL) COMPREHENSIVE METABOLIC PANEL (07/29/2018 10:56 PM CDT) [facility] SODIUM 127(L) 136 - 145 mmol/L 07/30/2018 12:06 AM T [facility] LABORATORY [facility] POTASSIUM 4.4 3.5 - 5.0 mmol/L 07/30/2018 12:06 AM T [employer] LABORATORY SERVICES [facility] Comment: Slightly hemolyzed. Result may be falsely elevated. CHLORIDE 93(L) 98 - 107 mmol/L 07/30/2018 12:06 AM T [employer] LABORATORY [facility] CO2 20(L) 22 - 29 mmol/L 07/30/2018 12:06 AM T [employer] LABORATORY SERVICES - [facility] CALCIUM 9.1 8.6 - 10.2 mg/dL 07/30/2018 12:06 AM [facility] [employer] [facility] - . [facility] BUN 12 6 - 20 mg/dL 07/30/2018 12:06 AM [facility] [employer] [facility] - . [facility] CREATININE 0.46(L) 0.51 - 0.95 mg/dL 07/30/2018 12:06 AM [facility] [employer] [facility] - . [facility] GLUCOSE 175(H) 74 - 99 mg/dL 07/30/2018 12:06 AM [facility] [employer] [facility] - . [facility] TOTAL PROTEIN 7.4 6.7 - 8.6 g/dL 07/30/2018 12:06 AM [facility] [employer] [facility] - . [facility] ALBUMIN 4.3 3.5 - 5.2 g/dL 07/30/2018 12:06 AM [facility] - . [facility] BILIRUBIN TOTAL <0.2(L) 0.3 - 1.2 mg/dL 07/30/2018 12:06 AM [facility] [employer] [facility] - [facility] ALKALINE PHOSPHATASE 76 35 - 104 U/L 07/30/2018 12:06 AM [facility] [employer] [facility]. [facility] AST 17 <33 U/L 07/30/2018 12:06 AM [facility] Comment: Hemolysis present. Result may be falsely elevated. ALT 14 <34 U/L 07/30/2018 12:06 AM [facility] [employer] [facility] Comment: Hemolysis present. Result may be falsely elevated. GFR >60 >=60 mL/min/1.7 3 sq meter 07/30/2018 12:06 AM [facility] [employer] [facility] Comment: eGFR has not [...] mL/min/1.7 3 sq meter 07/30/2018 12:06 AM [facility] LABORATORY SERVICES [facility] ANION GAP 14 8 - 16 mmol/L 07/30/2018 12:06 AM [facility] LABORATORY [facility] Blood Venipuncture / Unknown 07/29/2018 10:56 PM CDT 07/29/2018 11:00 PM CDT [facility] LABORATORY SERVICES [facility] - 07/30/2018 12:06 AM CDT Samples containing indocyanine green cause interferences on Total and/or Direct Bilirubin and must not be measured. Jam Martinez MD CHEMISTRY ORDERABLES [facility]# [id number] [address] [place] [address] * (ABNORMAL) CBC WITH DIFFERENTIAL (07/29/2018 10:56 PM CDT) WBC 12.1(H) 4.0 - 9.8 K/uL 07/29/2018 11:06 PM [facility] LABORATORY SERVICES [facility] RBC 4.57 3.90 - 4.90 M/uL 07/29/2018 11:06 PM [facility] LABORATORY [facility] HEMOGLOBIN 14.3 11.8 - 14.8 g/dL 07/29/2018 11:06 PM [facility] LABORATORY [facility] HEMATOCRIT 40.6 35.5 - 44.0 % 07/29/2018 11:06 PM [facility] LABORATORY SERVICES [facility] MCV 88.8 82.0 - 99.0 fL 07/29/2018 11:06 PM [facility] LABORATORY SERVICES - [facility] MCH 31.3 27.2 - 32.6 pg 07/29/2018 11:06 PM [facility] LABORATORY SERVICES [facility] MCHC 35.2 31.5 - 35.5 g/dL 07/29/2018 11:06 PM [facility] LABORATORY SERVICES [facility] RDW 13.7 11.5 - 14.5 % 07/29/2018 11:06 PM [facility] LABORATORY SERVICES - [facility] RDW-STDEV 44.7 37.1 - 48.7 fL 07/29/2018 11:06 PM CDT [employer] LABORATORY SERVICES - . [facility] PLATELETS 287 140 - 350 K/uL 07/29/2018 11:06 PM CDT [employer] LABORATORY SERVICES - [facility] MPV 9.4 9.3 - 12.4 fL 07/29/2018 11:06 PM CDT [employer] LABORATORY SERVICES - [facility] NEUTROPHILS 63 % 07/29/2018 11:06 PM CDT [employer] LABORATORY SERVICES - [facility] LYMPHOCYTES 30 % 07/29/2018 11:06 PM CDT [employer] LABORATORY SERVICES - [facility] MONOCYTES 6 % 07/29/2018 11:06 PM CDT [employer] LABORATORY SERVICES - [facility] EOSINOPHILS 1 % 07/29/2018 11:06 PM CDT [employer] LABORATORY SERVICES [facility] BASOPHILS 0 % 07/29/2018 11:06 PM [facility]T [facility] - . [facility] IMMATURE GRANULOCYTES 0 % 07/29/2018 11:06 PM CDT [employer] LABORATORY SERVICES - . [facility] NEUTROPHIL ABSOLUTE 7.66(H) 1.90 - 7.00 K/uL 07/29/2018 11:06 PM CDT [employer] LABORATORY SERVICES - . [facility] LYMPHOCYTE ABSOLUTE 3.59 0.70 - 4.50 K/uL 07/29/2018 11:06 PM CDT [employer] LABORATORY SERVICES - [facility] MONOCYTE ABSOLUTE 0.72 0.10 - 1.30 K/uL 07/29/2018 11:06 PM CDT [facility] EOSINOPHIL ABSOLUTE 0.07 0.00 - 0.70 K/uL 07/29/2018 11:06 PM CDT [facility] - [facility] BASOPHILS ABSOLUTE 0.04 0.00 - 0.20 K/uL 07/29/2018 11:06 PM CDT [facility] - . [facility] IMMATURE GRANULOCYTES ABSOLUTE 0.05(H) 0.00 - 0.03 K/uL 07/29/2018 11:06 PM CDT [facility] - . KIMO Blood Venipuncture / Unknown 07/29/2018 10:56 PM CDT 07/29/2018 11:00 PM CDT Jam Martinez MD HEMATOLOGY ORDERABLE S [facility]# [id number] [address] [place] [id number] documented in this encounter Visit Diagnoses Diagnosis [...] Given 07/31/2018 1:03 PM CDT 650 mg kgudhrh-ubzzqi-ojbphwqc (AMELIA 12 60-12-38 per capsule 2 Capsule [...] 08/01/2018 8:39 AM CDT 160 mg Fish Oil-[place]-3 Fatty Acids 360-1,200 mg capsule 1 Capsule [...] CDT. Scheduled Medication Order 08/01/2018 08/02/2018 08/03/2018 [id number] e (CREON 12) 60-12-38 per capsule 2 [...] (Given - Provider: Nathalie Walton RN) Fish Oil-[place]-3 Fatty Acids 360-1,200 mg capsule 1 Capsule [...] Routine 0634 (New Bag - Provider: Phyllis Madera RN)2008 (Stopped - Provider: Zainab Hart RN) sodium chloride 0.9% infusion IV, [...] 1127, Pain, Routine 0025 (Given - Provider: Phyllis Madera RN)0842 (Given - Provider: BLAISE Navarro) [...] Sullivan) documented in this encounter Care Teams Shipping Room Supervisor Relationship Specialty Start Date End Date Guerrero Middleton PA-C PCP - General Physician [employer] Supervisor 02/13/18 documented as of this encounter
--- OUTSIDE RECORDS SUMMARY | 2024-05-03 21:57 | XMS_ITS | Encounter Summary ---
Author Organization [facility] Address [address] [place] [address] Care Team Providers Care Academic Advisement Director Name Role Phone Guerrero Middleton PA-C Primary Care Provide r Encounter Details Date Type Department Care Team (Latest Contact Info) Description 06/18/2018 10:46 AM CARCASS SPLITTER - 06/18/2018 11:59 PM CARCASS SPLITTER Hospital Encounter [facility] Services [address], [address] [place] [phone] Marlys Mayer MD [address] [place] [address] Discharge Disposition: Home or Self Care Social [...] by mouth 2 times daily . 09/26/2023 [id number] A-Fish Oil [phone] [id number] Capsule Take 2 Caplets by mouth 2 [...] [facility] [place] [address] [place] [address] Marlys Mayer MD [address] [place] [address] documented as of this encounter Procedures Procedure Name Priority Date/Time Associated Diagnosis Comments LIPID PANEL Stat 06/18/2018 10:48 AM CARCASS SPLITTER Hypertriglyceridemia documented in this encounter Results * (ABNORMAL) LIPID PANEL (06/18/2018 10:48 AM CARCASS SPLITTER) CHOLESTEROL 334(H) <200 mg/dL 06/18/2018 11:51 AM [facility] [place] [facility] TRIGLYCERIDE 860(H) <150 mg/dL 06/18/2018 11:51 AM [facility] [place] [facility] HDL 36(L) 40 - 59 mg/dL 06/18/2018 11:51 AM [facility] [place] [facility] LDL CALCULATED <100 mg/dL 06/18/2018 11:51 AM [facility] [place] [facility] Comment:Calculated LDL is no t accurate when the Triglyceride value exceeds 400. NON-HDL CHOLESTEROL 298(H) <130 mg/dL 06/18/2018 11:51 AM [facility] [place] [facility] Blood Venipuncture / Unknown 06/18/2018 10:48 AM [facility] 06/18/2018 10:54 AM Critical access hospital [place] [facility] - 06/18/2018 11:51 AM [facility] TOTAL CHOLESTEROL ??mg/dL ??Desirable <200 ??Borderline high [...] Mayer MD CHEMISTRY ORDERABLES Performing Organization Address City/State/[facility] Co de Phone Number [facility] [id number] [address] [facility] [place] [id number] documented in this encounter Visit Diagnoses Diagnosis Hypertriglyceridemia Pure hyperglyceridemia documented in this encounter Care Teams Academic Advisement Director Relationship Specialty Start Date End Date Guerrero Middleton PA-C PCP - General Physician Rfid Strategist 02/13/18 documented as of this encounter
--- OUTSIDE RECORDS SUMMARY | 2024-05-03 21:57 | XMS_ITS | Encounter Summary ---
Author Organization [facility] Address [address] [place] [address] Care Team Providers Care Racking Machine Operator Name Role Phone Guerrero Middleton PA-C Primary Care Provide r Reason for Visit * Reason Onset Date Comments Erroneous encounter-disregard 06/18/2018 Encounter Details Date Type Department Care Team (Late Contact Info) Description 06/18/2018 Telephone [facility] Heart and Vascular At [address] [place] [phone] Marlys Mayer MD [address] [place] [address] [address] [place], [place] [id number] Erroneous encounter-disregard Social History Tobacco Use Types [...] ([facility]ly [facility]) Heart and V[facility] - [facility] [address] [address] [address] [place] [address] Marlys Mayer MD [address] [place], [place] [phone] documented as of this encounter Results * LIPID PANEL (10/22/2018) Blood Marlys Mayer MD CHEMISTRY ORDERABLES [facility]# [id number] [address] [id number] * (ABNORMAL) LIPID PANEL (06/18/2018 10:48 AM FURNITURE POLISHER) CHOLESTEROL 334(H) <200 mg/dL 06/18/2018 11:51 AM [facility] TRIGLYCERIDE 860(H) <150 mg/dL 06/18/2018 11:[address] [facility] [place] [facility] HDL 36(L) 40 - 59 mg/dL 06/18/2018 11:51 AM [facility] LDL CALCULATED <100 mg/dL 06/18/2018 11:[address] [facility] Comment:Calculated LDL is no t accurate when the Triglyceride value exceeds 400. NON-HDL CHOLESTEROL 298(H) <130 mg/dL 06/18/2018 11:[address] [facility] Blood Venipuncture / Unknown 06/18/2018 10:48 AM FURNITURE POLISHER 06/18/2018 10:54 AM [facility] - 06/18/2018 11:51 AM FURNITURE POLISHER TOTAL CHOLESTEROL ??mg/dL ??Desirable <200 ??Borderline high [...] Panels (NCEP/AMA) Marlys Mayer MD CHEMISTRY ORDERABLES [facility]# [id number] [address] [place] [address] documented in this encounter Visit Diagnoses Diagnosis Hypertriglyceridemia- Primary Pure hyperglyceridemia documented in this encounter Care Teams Racking Machine Operator Relationship Specialty Start Date End Date Guerrero Middleton PA-C PCP - General Physician Lead Teacher 02/13/18 documented as of this encounter
--- OUTSIDE RECORDS SUMMARY | 2024-05-03 21:57 | XMS_ITS | Encounter Summary ---
Author Organization [facility] Address [address] [place] [address] Care Team Providers Care Autobody Technician Name Role Phone Guerrero Middleton PA-C Primary Care Provide r Encounter Details Date Type Department Care Team ([facility] Contact Info) Description 06/18/2018 Orders Only [facility] Admitting [address] [place] [phone] Marlys Mayer MD [address] [place], [place] [phone] Social History Tobacco Use Types Packs/Day Years [...] [place] [facility] [address] [place] [address] Marlys Mayer MD [address] [facility] [address] [place], [place] [phone] documented as of this encounter Visit Diagnoses Not on filedocumented in this encounter Care Teams Autobody Technician Relationship Specialty Start Date End Date Guerrero Middleton PA-C PCP - General Physician Production Machinist 02/13/18 documented as of this encounter
--- OUTSIDE RECORDS SUMMARY | 2024-05-03 21:58 | XMS_ITS | Encounter Summary ---
Author Organization [facility] Address [address] [place] [address] Care Team Providers Care Snack Bar Attendant Name Role Phone Guerrero Middleton PA-C Primary Care Provide r Reason for Visit * Reason Comments Abdominal Pain pt arrives c/o LUQ p ain that radiates to her back, the pain started this AM, +n/v/d, hx of pancreatitis, taking compazine at home without relief, denies any fevers * Auth/Cert Specialty Diagnoses / Procedures Referred By Contac t Referred To Contact Orthopedic Surgery [facility] Orth[facility] [address] [place], [place] [address] [place] [address] Referral ID Status Reason Start Date Expiration Date Visits Re quested Visits Authorized [id number] 1 1 Encounter Details Date Type Department Care Team (Latest Contact Info) Description 04/09/2018 9:03 PM SOFTWARE MAINTENANCE ENGINEER - 04/14/2018 8:02 PM [facility] Hospital Encounter [facility] Telemetry [address] [place] [address] Yadira Huff [place] [address] [place] [id number] Richard Mead MD [address] [place] [address] Other acute pancreatitis with uninfected [...] Comments Blood Pressure 120/93 04/14/2018 4:50 PM SOFTWARE MAINTENANCE ENGINEER Pulse 76 04/14/2018 4:50 PM SOFTWARE MAINTENANCE ENGINEER Temperature 36.8 ??C (98.2 ??F) 04/14/2018 4:50 PM CS T Respiratory Rate 18 04/14/2018 4:50 PM SOFTWARE MAINTENANCE ENGINEER Oxygen Saturation 97% 04/14/2018 4:50 PM SOFTWARE MAINTENANCE ENGINEER Inhaled Oxygen Concentration - - Weight 91.6 kg (201 lb 14.4 oz) 04/14/2018 4:39 AM SOFTWARE MAINTENANCE ENGINEER Height 165.1 cm (5' 5 ) 04/10/2018 10:0 0 AM SOFTWARE MAINTENANCE ENGINEER Body Mass Index 33.6 04/10/2018 10:00 AM SOFTWARE MAINTENANCE ENGINEER documented in this encounter Discharge Summaries * Lynne Quach MD - 04/14/2018 8:08 PM CST [facility] Adult Discharge Summary Casandra Doss 42 y.o. female 1975 CSN: [id number] Date of Admission: 04/09/2018 Date of Discharge: [...] by mouth 2 times daily. Refills: 0 [id number]-[id number]-E-FA-Fish Oil [id number] aw-xm-aqy-mcg Capsule Take 2 Caplets by mouth 2 [...] improving. Follow-up: You must follow up with Guererro Middleton PA-C in NO MORE THAN 7 DAYS Signed: Lynne Quach MD 04/14/2018, 8:09 PM WARE MAINTENANCE ENGINEER Associated attestation - Richard Mead MD - 04/14/2018 10:46 PM SOFTWARE MAINTENANCE ENGINEER [facility] Adult Hospitalist Attending Note [...] lab and test results. Richard Mead MD [facility] Hospitalist documented in this encounter Discharge Instructions * Discharge Instructions* Richard Mead MD - 04/14/2018 6:26 PM SOFTWARE MAINTENANCE ENGINEER Your discharging physician is Richard Mead MD and may be reached at [phone] for any questions or concerns until you [...] people smoke in your home. Please call [phone], our pulmonary rehabilitation department, to learn more about options to reduce your risks. ACTIVITY Your activity level is: increase activity as tolerated and no smoking. You may return to work/school call if not improving. DIET Your diet is: low fat, diabetic diet WOUND CARE For your wound/incision: ok to remove dressing after 24 hrs. WARE MAINTENANCE ENGINEER documented in this encounter Medications at [...] units dinner Also with sliding scale. 06/02/2018 Khmnx3-[id number]-E-F A-Fish Oil [phone] lf-ld-yla-mcg Capsule Take 2 Caplets by mouth 2 [...] complication. Dustin Garcia MD, 04/14/2018 6:20 PM WARE MAINTENANCE ENGINEER * Ashlie Carmona MD - 04/13/2018 10:09 PM CST Cross Cover Note Called regarding POC glucose. Patient is tolerating a diet and POC glucose currently ordered q4. [id number] throughout the day. - POC glucose to ACHS and 0200 Ashlie Carmona MD [id number] WARE MAINTENANCE ENGINEER * Vicki Garcia NP - 04/13/2018 10:07 PM CST [facility] Call Called for: Clarifying glucose [...] assistance. Vicki Garcia NP Submit an eTicket WARE MAINTENANCE ENGINEER * Richard Mead MD - 04/13/2018 7:11 AM CST [facility] Adult Progress Note Admit Date: 04/09/2018 Date [...] to use miralax as no BM since BARBECUE COOK. HTG - TG now drastically improved following pheresis. Continue statin, fibrate, niacin. F/u with Dr. Mayer and Endocrinology after discharge. DM - BG within goal range. Cont lantus, accuchecks and CSI. Needs better correction control as an outpatient. Has endocrinology f/u scheduled. Hypernatremia - in setting of crystalloid resuscitation. Will change IVF to D5 1/2NS today. Encouraged patient to drink some water throughout the day as tolerated. Chronic/Stable/Resolved Problems: Hypothyroid - cont synthroid Anxiety - cont BARBECUE COOK celexa, ativan and trazodone GERD - cont [...] lab and test results. Richard Mead MD WARE MAINTENANCE ENGINEER * Carolyn Boyd NP - 04/12/2018 7:37 PM CST [facility] Call Called for: RN report [...] assistance. Carolyn Boyd NP Submit an eTicket WARE MAINTENANCE ENGINEER * Sari Sanford - 04/12/2018 2:22 PM CST Plasma exchange #2 completed using the R IJ tunneled catheter for draw and return without any problems. 2700 mls 5% Albumin used as replacement fluid for a 1 volume exchange. Patient tolerated procedure without incident. Post ICA resulted at 4.6 WARE MAINTENANCE ENGINEER * Richard Mead MD - 04/12/2018 8:18 AM CST [facility] Adult Progress Note Admit Date: 04/09/2018 Date [...] Hypothyroid - cont synthroid Anxiety - cont BARBECUE COOK celexa, ativan and trazodone GERD - cont [...] lab and test results. Richard Mead MD WARE MAINTENANCE ENGINEER * Manisha Madera RN - 04/11/2018 6:39 PM CST Undress and Assess performed by: Joan Dyer RN Admission or upon transfer to: [facility] ~~~~~~~~~~~~~~~~~~~~~~~~~~~~ Patient does not have skin breakdown. [...] available. IV tube was times and dated. WARE MAINTENANCE ENGINEER * Jack Arteaga MD - 04/11/2018 3:08 [...] throughout the procedure. Jack Arteaga MD, PhD Instructor Pilot, therapeutic apheresis service [phone] WARE MAINTENANCE ENGINEER * Lynne Quach MD - 04/11/2018 1:27 PM CST [facility] Adult Progress Note Admit Date: 04/09/2018 Date [...] 150 ml/hr D5LR ?? Hypertriglyceridemia -- resume BARBECUE COOK rosuvastatin, fenofibrate, niacin -- plan for plasmapheresis, downtrend TGs as above ?? GERD -- continue Protonix 40mg BID, Carafate qACHS Smoking -- continue nicotine patches Depression -- resume BARBECUE COOK citalopram Hypothyroidism -- resume BARBECUE COOK levothyroxine Quality/Safety/Core Measures/Disposition Planning: DVT Prophylaxis - [...] 7 AM- 5 PM: Page via the [facility] E-List 5 PM-7 AM: Call the salesperson new cars director international at [employer] phone [phone]. If no response please page the senior resident at [phone] ?? Saturday and Saturday: 7 AM-12 PM: [facility] 12 PM-7 AM: Call the salesperson new cars director international at [employer] phone [phone]. If no response please page the senior resident at [phone] ?? If no response to the above steps in 10 minutes, please page the attending physician. WARE MAINTENANCE ENGINEER Associated attestation - Richard Mead MD - 04/11/2018 7:44 PM SOFTWARE MAINTENANCE ENGINEER [facility] Adult Hospitalist Attending Note [...] lab and test results. Richard Mead MD [facility] Hospitalist * Daniel Whitehead, CLAU - 04/11/2018 12:00 PM CST Plasma exchange #1 completed today using right chest tunneled catheter for draw and return. 1.0 volume 100% fluid balance using 5% Albumin as replacement fluid completed. Patient tolerated procedure well. 2 Grams calcium gluconate given over procedure. Labs will be drawn in AM to assess future procedures per Dr. Arteaga. WARE MAINTENANCE ENGINEER * Araceli Duke RN - 04/11/2018 9:02 [place] [phone] spoke to charge nurse, will talk to the nurse that did the procedure and make sure it is corrected. WARE MAINTENANCE ENGINEER * Araceli Duke RN - 04/10/2018 7:19 PM CST Note says Dr. Willoughby to place dialysis catheter, pt went to IR for placement no note on placement. They documented it as a central line not as hemodialysis catheter. Tried to call IR to have it changed, no one answered. Back in the am will check then to have it changed. WARE MAINTENANCE ENGINEER * Mariah Narvaez RN - 04/10/2018 6:47 PM CST Casandra has pain controlled by IV medication. Intermittent nausea controlled with multiple pain modalities, no vomiting. Voiding adequate amounts per hat. Dialysis catheter in place, c/d/i. VS as stated, afebrile. Contacted physician regarding order for Plasmapheresis today, plan for tomorrow. Personal belongings and call button remain in reach. WARE MAINTENANCE ENGINEER * James Cleaning MD - 04/10/2018 5:33 PM CST Brief Cross Coverage note: REC'D PAGE FROM: RN, patient has itchiness CHART REVIEW: No allergies Stable vitals ACTION TAKEN: Benadryl IV PRN James Lai MD PGY1 IM WARE MAINTENANCE ENGINEER * Aura Parks RN - 04/10/2018 4:51 PM CST Procedure complete. New PIV started. Report called to Mariah OLGUIN WARE MAINTENANCE ENGINEER * Aura Parks RN - 04/10/2018 4:00 PM CST Pt arrived in IR14 via transport. ID/BD/allergies verified. Dr Sheffield at bedside, consent signed andin chart. Monitors applied. WARE MAINTENANCE ENGINEER * Nila Jacobs MD - 04/10/2018 3:16 PM CST I spoke with Dr Willoughby about request for placing a dialysis catheter for aphresis. I appreciate hishelp WARE MAINTENANCE ENGINEER * Ingris Chambers RN - 04/10/2018 12:[address] Hayes-ok to hold lantus and humalog at lunch time. WARE MAINTENANCE ENGINEER documented in this encounter H&P Notes * Lynne Quach MD - 04/10/2018 10:51 AM CST [facility] Internal Medicine Teaching Service History & [...] HYSTERECTOMY partial due to endometriosis 2006 ??? [place] ESOPHAGOGASTRODUODENOSCOPY TRANSORAL DIAGNOSTIC N/A 03/08/2018 ESOPHAGOGASTRODUODENOSCOPY performed by Ceasar Vega MD at [facility] Medications: Medication List CONTINUE taking [...] by mouth 2 times daily. Refills: 0 Vjrqy4-[id number]-E-FA-Fish Oil [phone] um-ul-zdz-mcg Capsule Take 2 Caplets by mouth 2 [...] without guarding, without rebound, no masses palpated CONVEYOR INSTALLER deferred or not applicable Extremities Normal, no [...] start 150 ml/hr D5LR Hypertriglyceridemia -- resume BARBECUE COOK rosuvastatin, fenofibrate, niacin -- will consider insulin drip and/or plasmapheresis GERD -- start Protonix 40mg BID, Carafate qACHS Smoking -- start nicotine patches Depression -- resume BARBECUE COOK citalopram Hypothyroidism -- resume BARBECUE COOK levothyroxine DVT PRX:Enoxaparin Indwelling Lines/Devices: L arm PIV Family Communication: none at this time Code Status: Full Current Planned Disposition - home once Pt is able to tolerate PO intake and pain remarkably improved which I anticipate will be completed 3-4 days. I discussed the assessment of plan for the above patient with Dr. Mead. Lynne Quach MD WARE MAINTENANCE ENGINEER Associated attestation - Richard Mead MD - 04/10/2018 10:43 PM SOFTWARE MAINTENANCE ENGINEER [facility] Adult Hospitalist Attending Note [...] lab and test results. Richard Mead MD [facility] Hospitalist documented in this encounter ED Notes * Demi Galvan RN - 04/09/2018 10:47 PM CST at bs WARE MAINTENANCE ENGINEER * Demi Galvan RN - 04/09/2018 10:36 PM CST aware of pt's pain WARE MAINTENANCE ENGINEER * Demi Galvan RN - 04/09/2018 9:19 [...] intact, even and unlabored, skin is pwd. WARE MAINTENANCE ENGINEER * Ambika Llanes RN - 04/09/2018 7:20 PM CST Emergency Department Adult Female Abdominal Pain Protocol [facility] ORDERS ARE ENTERED ???PER PROTOCOL?? Nursing Orders: o Insert peripheral IV (excessive vomiting or diarrhea) Laboratory Orders: o CBC with diff (RGI3123) o CMP (LAB17) o If female of childbearing age: POC Urine HCG (POC7) or HCG Qualitative urine (DBF900) if sending to lab o Urinalysis with Reflex Microscopy (TOQ579) o Serum HCG (if knowingly ) (KKS783) o Obtain serum lipase (LAB99) if upper abdominal pain o Draw and send extra tubes to lab (ED hold) ([id number]) Diagnostic Test Orders: o If RUQ pain, [...] by: Margarita Obando RN, BSN, YEFRI Nurse Animal Nutrition Teacher Approved by: Medical Executive Committee, Nursing Leadershp, Pharmacy & Therapeutics Date:03/2017 WARE MAINTENANCE ENGINEER * Alina Leyva RN - 04/09/2018 6:20 PM CST We promote safety at our facility and do not allow any type of weapon in the building. Do you have a weapon or something that could be used as a weapon on you today? denied possession of any weapons or firearms at this time WARE MAINTENANCE ENGINEER * Yadira Huff MD - 04/09/2018 6:06 [...] MEDICATIONS Patient's Home Medications Current Home Medications [id number] (CREON 12) 60 CAPSULE [id number] (CREON) CAPSULE CITALOPRAM (CELEXA) 40 MG ORAL [...] ACID ETHYL ESTERS (LOVAZA) 1 GRAM CAPSULE [id number]-E-FA-FISH OIL [phone] GY-QG-NND-MCG CAPSULE [id number] OIL ORAL ONDANSETRON (ZOFRAN ODT) 4 MG [...] and medical decision making performed by me. WARE MAINTENANCE ENGINEER documented in this encounter Miscellaneous Notes [...] spouse andwill be transported via private vehicle. WARE MAINTENANCE ENGINEER * Care Plan - Sandra Hdz RN [...] discharge planning. Sandra Hdz Rn Case Manager [phone] WARE MAINTENANCE ENGINEER * Care Plan - Wen Moss RN - 04/14/2018 5:42 AM CST Casandra Doss is a 42 y.o. female. A&O 4. Vital signs stable. Ambulating independently. Percocet given once for pain. PIV infusing without complication. Intermittent nausea on a clear liquid diet. POC glucose ACHS and 0200. Adequate urine output per bathroom hat. Last BM on 04/09 BARBECUE COOK; refused miralax due to abdominal discomfort. Call light and personal belongings within reach. Patient sleeping between care. WARE MAINTENANCE ENGINEER * Care Plan - Jeff Tariq RN - 04/13/2018 7:25 PM CST Pt complained of pain and nausea throughout the day. Given PRN medicine multiple times. Pt advancedto clear liquid diet at her belief she could tolerate it. Continuing to monitor blood sugars. Tenderness on palpation of LUQ of abdomen. WARE MAINTENANCE ENGINEER * Care Plan - Wen Moss RN - 04/13/2018 6:09 AM CST Casandra Doss is a 42 y.o. female. A&O 4. Vital signs stable. Ambulating independently. Patient educated that dilaudid is ordered for severe unrelenting pain and she states that Alma is ineffective; MD aware. Patient sleeping between care. PIV infusing without complication. Intermittent nausea on a NPO sips w/ meds diet. POC glucose ordered q4 hr. Adequate urine output per bathroom hat. Last BM on 04/09 BARBECUE COOK; refused miralax due to abdominal discomfort. Call light and personal belongings within reach. WARE MAINTENANCE ENGINEER * Care Plan - Dickson Seth RN - 04/12/2018 6:03 PM CST Casandra has c/o moderate pain throughout the shift, relieved with PO Alma and IV Dilaudid. C/o nauseaas well, relieved [...] pt is not drinking Miralax. BM is area captain. Educated pt on the importance of [...] comfort level or baseline comfort level Variance WARE MAINTENANCE ENGINEER * Care Plan - Justo Meyers RN - 04/12/2018 6:17 AM CST Patient is A/O X4 VSS ambulates on her own to the bathroom. Complains of abdominal pain. Alma and Dilaudid given with dilaudid only giving relief. NPO status maintained. Nausea noted and relieved with zofran WARE MAINTENANCE ENGINEER * Care Plan - Wen Moss RN - 04/11/2018 6:18 PM CST Casandra Doss is a 42 y.o. female. A&O 4. Vital signs stable. Ambulating w/ independently. Alma given once for pain. PIV infusing without complication. Hemodialysis catheter capped. Intermittent nausea on a NPO sips w/ meds diet. Voiding adequately per bathroom hat. Last BM on 04/09 BARBECUE COOK. Patient resting between care. Call light and personal belongings within reach. WARE MAINTENANCE ENGINEER * Care Plan - Wen Moss RN - 04/11/2018 4:15 PM CST ADULT IV Flush Protocol [facility] ORDERS ARE ENTERED ???PER PROTOCOL?? Enter [...] Nursing Leadership, Pharmacy and Therapeutics Date: 11/2017 WARE MAINTENANCE ENGINEER * Care Plan - Rossy Delgado RN - 04/11/2018 2:17 PM CST Pt resting, NPO maintained. Medicated with percoset and dilaudid per JUN. q4 BG checked. Pt up independent in room, voiding per bathroom. Vss WARE MAINTENANCE ENGINEER * Care Plan - Kraen Shook RN - 04/11/2018 5:04 AM CST Pt sleeping between care. C/o persistent LUQ pain- Margy and Dilaudid administered which pt states were effective. C/o mild nausea- Zofran administered. No emesis this shift. R chest dialysis catheterdressing CDI. D5LR infusing at 150ml/hr. Voiding per BR without difficulty. VSS. WARE MAINTENANCE ENGINEER * Treatment Plan - Susan Green RT - 04/10/2018 11:17 AM CST IMAGING SERVICES- CT, MRI MEDICATION and FLUSH PROTOCOL [facility] ORDERS ARE ENTERED ???PER PROTOCOL?? Enter the protocol in the patient???s electronic health record using Arbsourcephrase: .imagingctmriprotocol Communication Orders: o For ordered imaging [...] procedure. ??? If at any time the Therapeutic Recreation Assistant has a question about which option to [...] oral. May use nasoenteric tube if needed. [place] to 3 months Administer up to 90mL [...] solution with the pateint???s nurse to CT [place] Administer 45mL of diluted Iohexol oral solution, [...] and Pharmacy & Therapeutics Committee Date: 12/2017 WARE MAINTENANCE ENGINEER * Care Plan - Karen Shook RN - 04/10/2018 3:41 AM CST Pt sleeping between care. C/o 6/10 pain to LUQ. Morphine administered. Pt also c/o mild nausea- Zofran administered- no emesis. Ativan administered for anxiety and pt sleeping upon reassessment. 1L NS bolus administered per order. VSS. Pain, Potential/Actual ??? Verbalizes/displays acceptable comfort level or baseline comfort level Variance WARE MAINTENANCE ENGINEER documented in this encounter Plan of Treatment Upcoming Encounters Date Type Department Care Team (Late st Contact Info) Description 09/14/2024 3:00 PM CDT Office Visit [facility] Heart and Vascular - [facility] [address] [place] [address] Marlys Mayer MD [address] [place] [address] documented as of this encounter Procedures Procedure Name Priority Date/Time Associated Diagnosis Comments POC GLUCOSE Routine 04/14/2018 12:09 PM SOFTWARE MAINTENANCE ENGINEER POC GLUCOSE Routine 04/14/2018 9:11 AM SOFTWARE MAINTENANCE ENGINEER CBC WITH DIFFERENTIAL Routine 04/14/2018 3:51 AM SOFTWARE MAINTENANCE ENGINEER Pain of upper abdomen Hypertriglyceridemi a Pancreatitis, recurrent TRIGLYCERIDE Routine 04/14/2018 3:51 AM SOFTWARE MAINTENANCE ENGINEER BASIC METABOLIC PANEL Routine 04/14/2018 3:51 AM SOFTWARE MAINTENANCE ENGINEER POC GLUCOSE Routine 04/14/2018 2:54 AM SOFTWARE MAINTENANCE ENGINEER POC GLUCOSE Routine 04/13/2018 9:50 PM SOFTWARE MAINTENANCE ENGINEER POC GLUCOSE Routine 04/13/2018 7:15 PM SOFTWARE MAINTENANCE ENGINEER POC GLUCOSE Routine 04/13/2018 11:48 AM SOFTWARE MAINTENANCE ENGINEER POC GLUCOSE Routine 04/13/2018 9:16 AM SOFTWARE MAINTENANCE ENGINEER POC GLUCOSE Routine 04/13/2018 8:26 AM SOFTWARE MAINTENANCE ENGINEER CBC WITH DIFFERENTIAL Routine 04/13/2018 5:20 AM SOFTWARE MAINTENANCE ENGINEER Pain of upper abdomen Hypertriglyceridemi a Pancreatitis, recurrent TRIGLYCERIDE Routine 04/13/2018 5:20 AM SOFTWARE MAINTENANCE ENGINEER BASIC METABOLIC PANEL Routine 04/13/2018 5:20 AM SOFTWARE MAINTENANCE ENGINEER POC GLUCOSE Routine 04/13/2018 3:45 AM SOFTWARE MAINTENANCE ENGINEER POC GLUCOSE Routine 04/12/2018 11:40 PM SOFTWARE MAINTENANCE ENGINEER POC GLUCOSE Routine 04/12/2018 7:41 PM SOFTWARE MAINTENANCE ENGINEER POC GLUCOSE Routine 04/12/2018 4:44 PM SOFTWARE MAINTENANCE ENGINEER POC GLUCOSE Routine 04/12/2018 12:18 PM SOFTWARE MAINTENANCE ENGINEER CALCIUM IONIZED Routine 04/12/2018 12:18 PM SOFTWARE MAINTENANCE ENGINEER Hypertriglyceridemi a Epigastric pain POC GLUCOSE Routine 04/12/2018 8:14 AM SOFTWARE MAINTENANCE ENGINEER CBC WITH DIFFERENTIAL Routine 04/12/2018 6:18 AM SOFTWARE MAINTENANCE ENGINEER Pain of upper abdomen Hypertriglyceridemi a Pancreatitis, recurrent PROTIME-INR Routine 04/12/2018 6:17 AM SOFTWARE MAINTENANCE ENGINEER Pain of upper abdomen Hypertriglyceridemi a Pancreatitis, recurrent LIPID PANEL Routine 04/12/2018 6:17 AM SOFTWARE MAINTENANCE ENGINEER Pain of upper abdomen Hypertriglyceridemi a Pancreatitis, recurrent BASIC METABOLIC PANEL Routine 04/12/2018 6:17 AM SOFTWARE MAINTENANCE ENGINEER POC GLUCOSE Routine 04/12/2018 3:59 AM SOFTWARE MAINTENANCE ENGINEER POC GLUCOSE Routine 04/11/2018 11:59 PM SOFTWARE MAINTENANCE ENGINEER POC GLUCOSE Routine 04/11/2018 8:17 PM SOFTWARE MAINTENANCE ENGINEER POC GLUCOSE Routine 04/11/2018 4:58 PM SOFTWARE MAINTENANCE ENGINEER POC GLUCOSE Routine 04/11/2018 12:22 PM SOFTWARE MAINTENANCE ENGINEER VERIFICATION BLOOD GROUP Stat 04/11/2018 8:20 AM SOFTWARE MAINTENANCE ENGINEER History of gestational diabetes POC GLUCOSE Routine 04/11/2018 7:57 AM SOFTWARE MAINTENANCE ENGINEER CBC WITH DIFFERENTIAL Routine 04/11/2018 7:01 AM SOFTWARE MAINTENANCE ENGINEER Pain of upper abdomen Hypertriglyceridemi a Pancreatitis, recurrent PROTIME-INR Routine 04/11/2018 7:01 AM SOFTWARE MAINTENANCE ENGINEER LIPID PANEL Routine 04/11/2018 7:01 AM SOFTWARE MAINTENANCE ENGINEER BASIC METABOLIC PANEL Routine 04/11/2018 7:01 AM SOFTWARE MAINTENANCE ENGINEER TYPE AND SCREEN Routine 04/11/2018 6:51 AM SOFTWARE MAINTENANCE ENGINEER POC GLUCOSE Routine 04/11/2018 4:08 AM SOFTWARE MAINTENANCE ENGINEER POC GLUCOSE Routine 04/11/2018 12:15 AM SOFTWARE MAINTENANCE ENGINEER POC GLUCOSE Routine 04/10/2018 8:43 PM SOFTWARE MAINTENANCE ENGINEER POC GLUCOSE Routine 04/10/2018 5:49 PM SOFTWARE MAINTENANCE ENGINEER IR VENOUS ACCESS Routine 04/10/2018 4:22 PM SOFTWARE MAINTENANCE ENGINEER EKG 12-LEAD Routine 04/10/2018 3:29 PM SOFTWARE MAINTENANCE ENGINEER POC GLUCOSE Routine 04/10/2018 11:53 AM SOFTWARE MAINTENANCE ENGINEER CT ABDOMEN W CONTRAST Routine 04/10/2018 11:35 AM SOFTWARE MAINTENANCE ENGINEER POC GLUCOSE Routine 04/09/2018 11:58 PM SOFTWARE MAINTENANCE ENGINEER URINALYSIS W/REFLEX MICROSCOPIC Stat 04/09/2018 9:07 PM SOFTWARE MAINTENANCE ENGINEER CBC WITH DIFFERENTIAL Stat 04/09/2018 7:26 PM SOFTWARE MAINTENANCE ENGINEER TRIGLYCERIDE Stat 04/09/2018 7:26 PM SOFTWARE MAINTENANCE ENGINEER LIPASE Stat 04/09/2018 7:26 PM SOFTWARE MAINTENANCE ENGINEER COMPREHENSIVE METABOLIC PANEL Stat 04/09/2018 7:26 PM SOFTWARE MAINTENANCE ENGINEER EKG 12-LEAD Routine 04/09/2018 6:10 PM SOFTWARE MAINTENANCE ENGINEER documented in this encounter Results * (ABNORMAL) POC GLUCOSE (04/14/2018 12:09 PM SOFTWARE MAINTENANCE ENGINEER) GLUCOSE POC 145(H) 74 - 99 mg/dL 04/14/2018 12:22 PM SOFTWARE MAINTENANCE ENGINEER [facility] [address] OF [address] MANAGER NAME POC MAR MARRUFO 04/14/2018 12:22 PM SOFTWARE MAINTENANCE ENGINEER [facility] Whole blood specimen (specimen) 04/14/2018 12:09 PM SOFTWARE MAINTENANCE ENGINEER 04/14/2018 12:22 PM SOFTWARE MAINTENANCE ENGINEER Richard Mead MD POINT OF CARE TEST ING [facility] [id number] [address] [place] [address] * (ABNORMAL) POC GLUCOSE (04/14/2018 9:11 AM SOFTWARE MAINTENANCE ENGINEER) GLUCOSE POC 110(H) 74 - 99 mg/dL 04/14/2018 9:45 AM SOFTWARE MAINTENANCE ENGINEER [employer] [facility] RIGHT OF [address] MANAGER NAME POC THIAGO CARPIO 04/14/2018 9:45 AM SOFTWARE MAINTENANCE ENGINEER [employer] [facility] Whole blood specimen (specimen) 04/14/2018 9:11 AM SOFTWARE MAINTENANCE ENGINEER 04/14/2018 9:45 AM SOFTWARE MAINTENANCE ENGINEER Richard Mead MD POINT OF CARE TEST ING [employer] [facility]# [id number] [address] [place] [address] * (ABNORMAL) BASIC METABOLIC PANEL (04/14/2018 3:51 AM SOFTWARE MAINTENANCE ENGINEER) SODIUM 144 136 - 145 mmol/L 04/14/2018 5:53 AM SOFTWARE MAINTENANCE ENGINEER [facility] - [facility] POTASSIUM 2.8(L) 3.5 - 5.0 mmol/L 04/14/2018 5:53 AM SOFTWARE MAINTENANCE ENGINEER [facility] - . [facility] CHLORIDE 103 98 - 107 mmol/L 04/14/2018 5:53 AM SOFTWARE MAINTENANCE ENGINEER [facility] - . [facility] CO2 29 22 - 29 mmol/L 04/14/2018 5:53 AM SOFTWARE MAINTENANCE ENGINEER [facility] - . [facility] CALCIUM 9.0 8.6 - 10.2 mg/dL 04/14/2018 5:53 AM SOFTWARE MAINTENANCE ENGINEER [facility] - . [facility] BUN <2(L) 6 - 20 mg/dL 04/14/2018 5:53 AM SOFTWARE MAINTENANCE ENGINEER [facility] - . [facility] CREATININE 0.58 0.51 - 0.95 mg/dL 04/14/2018 5:53 AM SOFTWARE MAINTENANCE ENGINEER [facility] - . [facility] GLUCOSE 97 74 - 99 mg/dL 04/14/2018 5:53 AM SOFTWARE MAINTENANCE ENGINEER [facility] - [facility] GFR >60 >=60 mL/min/1.7 3 sq meter 04/14/2018 5:53 AM [facility] [employer] [facility] Comment: eGFR has not [...] mL/min/1.7 3 sq meter 04/14/2018 5:53 AM [facility] [employer] [facility] ANION GAP 12 8 - 16 mmol/L 04/14/2018 5:53 AM [facility] [employer] [facility] Blood 04/14/2018 3:51 AM SOFTWARE MAINTENANCE ENGINEER 04/14/2018 4:59 AM SOFTWARE MAINTENANCE ENGINEER Richard Mead MD CHEMISTRY ORDERABL ES [facility]# [id number] 5 [facility] [place] [address] * (ABNORMAL) CBC WITH DIFFERENTIAL (04/14/2018 3:51 AM SOFTWARE MAINTENANCE ENGINEER) WBC 6.1 4.0 - 9.8 K/uL 04/14/2018 5:09 AM [facility] [employer] [place] [facility] RBC 3.86(L) 3.90 - 4.90 M/uL 04/14/2018 5:09 AM [facility] [employer] [facility] HEMOGLOBIN 11.5(L) 11.8 - 14.8 g/dL 04/14/2018 5:09 AM [facility] [employer] [facility] HEMATOCRIT 35.4(L) 35.5 - 44.0 % 04/14/2018 5:09 AM [facility] [employer] [facility] MCV 91.7 82.0 - 99.0 fL 04/14/2018 5:09 AM SOFTWARE MAINTENANCE ENGINEER [facility] MCH 29.8 27.2 - 32.6 pg 04/14/2018 5:09 AM 24h00 [facility] MCHC 32.5 31.5 - 35.5 g/dL 04/14/2018 5:09 AM 24h00 [facility] RDW 13.6 11.5 - 14.5 % 04/14/2018 5:09 AM 24h00 [facility] RDW-STDEV 46.0 37.1 - 48.7 fL 04/14/2018 5:09 AM 24h00 [facility] PLATELETS 167 140 - 350 K/uL 04/14/2018 5:09 AM 24h00 [facility] MPV 9.6 9.3 - 12.4 fL 04/14/2018 5:09 AM 24h00 [facility] NEUTROPHILS 54 % 04/14/2018 5:09 AM 24h00 [facility] LYMPHOCYTES 36 % 04/14/2018 5:09 AM 24h00 [facility] MONOCYTES 8 % 04/14/2018 5:09 AM 24h00 [facility] EOSINOPHILS 2 % 04/14/2018 5:09 AM 24h00 [facility] BASOPHILS 0 % 04/14/2018 5:09 AM 24h00 [facility] IMMATURE GRANULOCYTES 0 % 04/14/2018 5:09 AM 24h00 [facility] NEUTROPHIL ABSOLUTE 3.31 1.90 - 7.00 K/uL 04/14/2018 5:09 AM 24h00 [facility] LYMPHOCYTE ABSOLUTE 2.22 0.70 - 4.50 K/uL 04/14/2018 5:09 AM 24h00 [facility] MONOCYTE ABSOLUTE 0.46 0.10 - 1.30 K/uL 04/14/2018 5:09 AM 24h00 [facility] EOSINOPHIL ABSOLUTE 0.10 0.00 - 0.70 K/uL 04/14/2018 5:09 AM 24h00 [facility] BASOPHILS ABSOLUTE 0.02 0.00 - 0.20 K/uL 04/14/2018 5:09 AM 24h00 [facility] IMMATURE GRANULOCYTES ABSOLUTE 0.02 0.00 - 0.03 K/uL 04/14/2018 5:09 AM SOFTWARE MAINTENANCE ENGINEER [facility] Blood Venipuncture / Unknown 04/14/2018 3:51 AM SOFTWARE MAINTENANCE ENGINEER 04/14/2018 5:01 AM SOFTWARE MAINTENANCE ENGINEER Richard Mead MD HEMATOLOGY ORDERAB LES Performing Organization Address [facility] de Phone Number [facility]# [id number] [address] [place] [address] * (ABNORMAL) TRIGLYCERIDE (04/14/2018 3:51 AM SOFTWARE MAINTENANCE ENGINEER) TRIGLYCERIDE 280(H) <150 mg/dL 04/14/2018 5:50 AM [facility] Blood 04/14/2018 3:51 AM SOFTWARE MAINTENANCE ENGINEER 04/14/2018 4:59 AM SOFTWARE MAINTENANCE ENGINEER Narrative [facility] - 04/14/2018 5:50 AM SOFTWARE MAINTENANCE ENGINEER TRIGLYCERIDES ? mg/dL Normal ?< 150 Borderline High ?150 - 199 High ? 200 - 499 Very High ? >= 500 Based on AHA/NCEP Guidelines. Richard Mead MD CHEMISTRY ORDERABL ES Performing Organization Address [facility] de Phone Number [facility]# [id number] [address] [place] [address] * (ABNORMAL) POC GLUCOSE (04/14/2018 2:54 AM SOFTWARE MAINTENANCE ENGINEER) GLUCOSE POC 111(H) 74 - 99 mg/dL 04/14/2018 3:05 AM [facility] [place] [facility] RIGHT OF WAY MANAGER NAME POC EFRAÍN BENITO 04/14/2018 3:05 AM [facility] [place] [facility] Whole blood specimen (specimen) 04/14/2018 2:54 AM SOFTWARE MAINTENANCE ENGINEER 04/14/2018 3:05 AM SOFTWARE MAINTENANCE ENGINEER Richard Mead MD POINT OF CARE TEST ING Performing Organization Address City/[facility]/ZIP Co de Phone Number [facility]# [id number] [address] [place] [address] * (ABNORMAL) POC GLUCOSE (04/13/2018 9:50 PM SOFTWARE MAINTENANCE ENGINEER) GLUCOSE POC 154(H) 74 - 99 mg/dL 04/13/2018 10:03 PM SOFTWARE MAINTENANCE ENGINEER [facility] RIGHT OF WAY MANAGER NAME WEN ELIZABETH 04/13/2018 10:03 PM SOFTWARE MAINTENANCE ENGINEER [facility] Whole blood specimen (specimen) 04/13/2018 9:50 PM SOFTWARE MAINTENANCE ENGINEER 04/13/2018 10:03 PM SOFTWARE MAINTENANCE ENGINEER Richard Mead MD POINT OF CARE TEST ING Performing Organization Address [facility] Co de Phone Number [facility]# [id number] [address] [place] [address] * (ABNORMAL) POC GLUCOSE (04/13/2018 7:15 PM SOFTWARE MAINTENANCE ENGINEER) GLUCOSE POC 101(H) 74 - 99 mg/dL 04/13/2018 7:28 PM SOFTWARE MAINTENANCE ENGINEER [facility] RIGHT OF WAY MANAGER NAME POC WEN MOSS 04/13/2018 7:28 PM SOFTWARE MAINTENANCE ENGINEER [facility] Whole blood specimen (specimen) 04/13/2018 7:15 PM SOFTWARE MAINTENANCE ENGINEER 04/13/2018 7:28 PM SOFTWARE MAINTENANCE ENGINEER Richard Mead MD POINT OF CARE TEST ING Performing Organization Address [facility] Co de Phone Number [facility] [id number] [address] [place] [address] * (ABNORMAL) POC GLUCOSE (04/13/2018 11:48 AM SOFTWARE MAINTENANCE ENGINEER) GLUCOSE POC 116(H) 74 - 99 mg/dL 04/13/2018 12:05 PM SOFTWARE MAINTENANCE ENGINEER [facility] RIGHT OF WAY MANAGER NAME POC JEFF TARIQ 04/13/2018 12:05 PM SOFTWARE MAINTENANCE ENGINEER [facility] Whole blood specimen (specimen) 04/13/2018 11:48 AM SOFTWARE MAINTENANCE ENGINEER 04/13/2018 12:05 PM SOFTWARE MAINTENANCE ENGINEER Richard Mead MD POINT OF CARE TEST ING Performing Organization Address [facility] Co de Phone Number [facility] CLIA# [id number] [address] [place] [address] * (ABNORMAL) POC GLUCOSE (04/13/2018 9:16 AM SOFTWARE MAINTENANCE ENGINEER) GLUCOSE POC 102(H) 74 - 99 mg/dL 04/13/2018 9:28 AM SOFTWARE MAINTENANCE ENGINEER [facility] RIGHT OF WAY MANAGER NAME POC JOAN ERVIN 04/13/2018 9:28 AM SOFTWARE MAINTENANCE ENGINEER [facility] Whole blood specimen (specimen) 04/13/2018 9:16 AM SOFTWARE MAINTENANCE ENGINEER 04/13/2018 9:28 AM SOFTWARE MAINTENANCE ENGINEER Richard Mead MD POINT OF CARE TEST ING Performing Organization Address [facility] Co de Phone Number [facility]# [id number] [address] [place] [address] * (ABNORMAL) POC GLUCOSE (04/13/2018 8:26 AM SOFTWARE MAINTENANCE ENGINEER) GLUCOSE POC 113(H) 74 - 99 mg/dL 04/13/2018 8:47 AM SOFTWARE MAINTENANCE ENGINEER [facility] RIGHT OF WAY MANAGER NAME POC JOAN ERVIN 04/13/2018 8:47 AM SOFTWARE MAINTENANCE ENGINEER [facility] Whole blood specimen (specimen) 04/13/2018 8:26 AM SOFTWARE MAINTENANCE ENGINEER 04/13/2018 8:47 AM SOFTWARE MAINTENANCE ENGINEER Richard Mead MD POINT OF CARE TEST ING Performing Organization Address [facility]/ZIP Co de Phone Number [facility] CLIA# [id number] [address] [place] [address] * (ABNORMAL) TRIGLYCERIDE (04/13/2018 5:20 AM SOFTWARE MAINTENANCE ENGINEER) TRIGLYCERIDE 289(H) <150 mg/dL 04/13/2018 7:52 AM [facility] [place] [facility] Blood Venipuncture / Unknown 04/13/2018 5:20 AM SOFTWARE MAINTENANCE ENGINEER 04/13/2018 6:13 AM SOFTWARE MAINTENANCE ENGINEER [facility] [employer] [place] [facility] - 04/13/2018 7:52 AM SOFTWARE MAINTENANCE ENGINEER TRIGLYCERIDES ? mg/dL Normal ?< 150 Borderline High ?150 - 199 High ? 200 - 499 Very High ? >= 500 Based on AHA/NCEP Guidelines. Richard Mead MD CHEMISTRY ORDERABL ES Performing Organization Address [facility] Co de Phone Number [facility] CLIA# [id number] [address] [place] [address] * (ABNORMAL) BASIC METABOLIC PANEL (04/13/2018 5:20 AM SOFTWARE MAINTENANCE ENGINEER) SODIUM 150(H) 136 - 145 mmol/L 04/13/2018 7:10 AM [facility] [employer] [facility] POTASSIUM 3.8 3.5 - 5.0 mmol/L 04/13/2018 7:10 AM [facility] [employer] [facility] - . [facility] CHLORIDE 107 98 - 107 mmol/L 04/13/2018 7:10 AM [facility] [employer] [facility] CO2 30(H) 22 - 29 mmol/L 04/13/2018 7:10 AM [facility] [employer] [facility] - . [facility] CALCIUM 9.4 8.6 - 10.2 mg/dL 04/13/2018 7:10 AM [facility] [employer] [facility] - . [facility] BUN 2(L) 6 - 20 mg/dL 04/13/2018 7:10 AM [facility] [place] CREATININE 0.61 0.51 - 0.95 mg/dL 04/13/2018 7:10 AM [facility] [place] GLUCOSE 97 74 - 99 mg/dL 04/13/2018 7:10 AM [facility] [place] GFR >60 >=60 mL/min/1.7 3 sq meter 04/13/2018 7:10 AM [facility] [place] Comment: eGFR has not [...] mL/min/1.7 3 sq meter 04/13/2018 7:10 AM [facility] [place] ANION GAP 13 8 - 16 mmol/L 04/13/2018 7:10 AM [facility] [place] Blood Venipuncture / Unknown 04/13/2018 5:20 AM SOFTWARE MAINTENANCE ENGINEER 04/13/2018 6:13 AM SOFTWARE MAINTENANCE ENGINEER Richard Mead MD CHEMISTRY ORDERABL ES [facility]# [id number] [address] [facility] [address] [address] * (ABNORMAL) CBC WITH DIFFERENTIAL (04/13/2018 5:20 AM SOFTWARE MAINTENANCE ENGINEER) WBC 6.8 4.0 - 9.8 K/uL 04/13/2018 6:24 AM [facility] [place] RBC 3.58(L) 3.90 - 4.90 M/uL 04/13/2018 6:24 AM [facility] [place] HEMOGLOBIN 10.8(L) 11.8 - 14.8 g/dL 04/13/2018 6:24 AM SOFTWARE MAINTENANCE ENGINEER [employer] [facility] HEMATOCRIT 32.6(L) 35.5 - 44.0 % 04/13/2018 6:24 AM SOFTWARE MAINTENANCE ENGINEER [employer] [facility] MCV 91.1 82.0 - 99.0 fL 04/13/2018 6:24 AM SOFTWARE MAINTENANCE ENGINEER [employer] [facility] MCH 30.2 27.2 - 32.6 pg 04/13/2018 6:24 AM SOFTWARE MAINTENANCE ENGINEER [employer] [facility] MCHC 33.1 31.5 - 35.5 g/dL 04/13/2018 6:24 AM SOFTWARE MAINTENANCE ENGINEER [employer] [facility] [facility] RDW 13.9 11.5 - 14.5 % 04/13/2018 6:24 AM SOFTWARE MAINTENANCE ENGINEER [facility] RDW-STDEV 46.5 37.1 - 48.7 fL 04/13/2018 6:24 AM 24h00 [facility] PLATELETS 158 140 - 350 K/uL 04/13/2018 6:24 AM SOFTWARE MAINTENANCE ENGINEER [employer] [facility] MPV 9.5 9.3 - 12.4 fL 04/13/2018 6:24 AM SOFTWARE MAINTENANCE ENGINEER [employer] [facility] NEUTROPHILS 61 % 04/13/2018 6:24 AM SOFTWARE MAINTENANCE ENGINEER [employer] [facility] LYMPHOCYTES 31 % 04/13/2018 6:24 AM SOFTWARE MAINTENANCE ENGINEER [employer] [facility] [facility] MONOCYTES 7 % 04/13/2018 6:24 AM SOFTWARE MAINTENANCE ENGINEER [employer] [facility] EOSINOPHILS 2 % 04/13/2018 6:24 AM SOFTWARE MAINTENANCE ENGINEER [employer] [facility] BASOPHILS 0 % 04/13/2018 6:24 AM SOFTWARE MAINTENANCE ENGINEER [facility] [facility] IMMATURE GRANULOCYTES 0 % 04/13/2018 6:24 AM SOFTWARE MAINTENANCE ENGINEER [employer] [facility] NEUTROPHIL ABSOLUTE 4.08 1.90 - 7.00 K/uL 04/13/2018 6:24 AM SOFTWARE MAINTENANCE ENGINEER [facility] LYMPHOCYTE ABSOLUTE 2.10 0.70 - 4.50 K/uL 04/13/2018 6:24 AM SOFTWARE MAINTENANCE ENGINEER [employer] [facility] MONOCYTE ABSOLUTE 0.44 0.10 - 1.30 K/uL 04/13/2018 6:24 AM SOFTWARE MAINTENANCE ENGINEER [facility] EOSINOPHIL ABSOLUTE 0.10 0.00 - 0.70 K/uL 04/13/2018 6:24 AM SOFTWARE MAINTENANCE ENGINEER [facility] - [facility] BASOPHILS ABSOLUTE 0.01 0.00 - 0.20 K/uL 04/13/2018 6:24 AM [facility] LABORATORY SERVICES - [facility] IMMATURE GRANULOCYTES ABSOLUTE 0.02 0.00 - 0.03 K/uL 04/13/2018 6:24 AM [facility] LABORATORY [facility] Blood Venipuncture / Unknown 04/13/2018 5:20 AM SOFTWARE MAINTENANCE ENGINEER 04/13/2018 6:13 AM SOFTWARE MAINTENANCE ENGINEER Richard Mead MD HEMATOLOGY ORDERAB LES [facility] CLIA# [id number] [address] [place] [address] * POC GLUCOSE (04/13/2018 3:45 AM SOFTWARE MAINTENANCE ENGINEER) GLUCOSE POC 91 74 - 99 mg/dL 04/13/2018 3:57 AM SOFTWARE MAINTENANCE ENGINEER [facility] RIGHT OF WAY MANAGER NAME POC WEN MOSS 04/13/2018 3:57 AM [facility] [place] Whole blood specimen (specimen) 04/13/2018 3:45 AM SOFTWARE MAINTENANCE ENGINEER 04/13/2018 3:57 AM SOFTWARE MAINTENANCE ENGINEER Richard Mead MD POINT OF CARE TEST ING [id number] [address] [place] [address] * (ABNORMAL) POC GLUCOSE (04/12/2018 11:40 PM SOFTWARE MAINTENANCE ENGINEER) GLUCOSE POC 130(H) 74 - 99 mg/dL 04/12/2018 11:56 PM SOFTWARE MAINTENANCE ENGINEER [facility] RIGHT OF WAY MANAGER NAME POC BEN, WEN 04/12/2018 11:56 PM SOFTWARE MAINTENANCE ENGINEER [facility] Whole blood specimen (specimen) 04/12/2018 11:40 PM SOFTWARE MAINTENANCE ENGINEER 04/12/2018 11:56 PM SOFTWARE MAINTENANCE ENGINEER Richard Mead MD POINT OF CARE TEST ING [facility] CLIA# [id number] [address] [place] [address] * (ABNORMAL) POC GLUCOSE (04/12/2018 7:41 PM SOFTWARE MAINTENANCE ENGINEER) GLUCOSE POC 114(H) 74 - 99 mg/dL 04/12/2018 10:15 PM SOFTWARE MAINTENANCE ENGINEER [employer] [facility] - [facility] COMMENT, GLU POC Notified RN/MD 04/12/2018 10:15 PM SOFTWARE MAINTENANCE ENGINEER [facility] SERVICES [facility] RIGHT OF WAY MANAGER NAME POC MEERA CORONA 04/12/2018 10:15 PM SOFTWARE MAINTENANCE ENGINEER [facility] Whole blood specimen (specimen) 04/12/2018 7:41 PM SOFTWARE MAINTENANCE ENGINEER 04/12/2018 10:15 PM SOFTWARE MAINTENANCE ENGINEER Richard Mead MD POINT OF CARE TEST ING Performing Organization Address [facility]/ZIP Co de Phone Number [facility] CLIA# [id number] [address] [place] [address] * (ABNORMAL) POC GLUCOSE (04/12/2018 4:44 PM SOFTWARE MAINTENANCE ENGINEER) GLUCOSE POC 125(H) 74 - 99 mg/dL 04/12/2018 4:57 PM SOFTWARE MAINTENANCE ENGINEER [facility] RIGHT OF WAY MANAGER NAME POC DICKSON Philip 04/12/2018 4:57 PM SOFTWARE MAINTENANCE ENGINEER [facility] Whole blood specimen (specimen) 04/12/2018 4:44 PM SOFTWARE MAINTENANCE ENGINEER 04/12/2018 4:57 PM SOFTWARE MAINTENANCE ENGINEER Richard Mead MD POINT OF CARE TEST ING [facility] CLIA# [id number] [address] [place] [address] * (ABNORMAL) POC GLUCOSE (04/12/2018 12:18 PM SOFTWARE MAINTENANCE ENGINEER) GLUCOSE POC 143(H) 74 - 99 mg/dL 04/12/2018 12:45 PM SOFTWARE MAINTENANCE ENGINEER [facility] RIGHT OF WAY MANAGER NAME POC DICKSON Philip 04/12/2018 12:45 PM SOFTWARE MAINTENANCE ENGINEER [facility] Whole blood specimen (specimen) 04/12/2018 12:18 PM SOFTWARE MAINTENANCE ENGINEER 04/12/2018 12:45 PM SOFTWARE MAINTENANCE ENGINEER Richard Mead MD POINT OF CARE TEST ING [facility] CLIA# [id number] [address] [place] [address] * (ABNORMAL) CALCIUM IONIZED (04/12/2018 12:18 PM SOFTWARE MAINTENANCE ENGINEER) PH, VENOUS 7.29(L) 7.32 - 7.43 04/12/2018 2:10 PM SOFTWARE MAINTENANCE ENGINEER [facility] CALCIUM IONIZED 4.6(L) 4.8 - 5.2 mg/dL 04/12/2018 2:10 PM [facility] Blood Collection / Unknown 04/12/2018 12:18 PM SOFTWARE MAINTENANCE ENGINEER 04/12/2018 2:03 PM SOFTWARE MAINTENANCE ENGINEER Jam Montgomery DO CHEMISTRY ORDERABLES [facility] CLIA# [id number] [address] [place] [address] * (ABNORMAL) POC GLUCOSE (04/12/2018 8:14 AM SOFTWARE MAINTENANCE ENGINEER) GLUCOSE POC 175(H) 74 - 99 mg/dL 04/12/2018 8:34 AM SOFTWARE MAINTENANCE ENGINEER [facility] RIGHT OF WAY MANAGER NAME POC DICKSON Philip 04/12/2018 8:34 AM [facility] Whole blood specimen (specimen) 04/12/2018 8:14 AM SOFTWARE MAINTENANCE ENGINEER 04/12/2018 8:34 AM SOFTWARE MAINTENANCE ENGINEER Richard Mead MD POINT OF CARE TEST ING [facility] CLIA# [id number] 5 [facility] [place] [address] * (ABNORMAL) CBC WITH DIFFERENTIAL (04/12/2018 6:18 AM SOFTWARE MAINTENANCE ENGINEER) WBC 6.0 4.0 - 9.8 K/uL 04/12/2018 6:49 AM SOFTWARE MAINTENANCE ENGINEER [facility] RBC 3.37(L) 3.90 - 4.90 M/uL 04/12/2018 6:49 AM [employer] [facility] - [facility] HEMOGLOBIN 10.3(L) 11.8 - 14.8 g/dL 04/12/2018 6:49 AM [employer] [facility] HEMATOCRIT 31.0(L) 35.5 - 44.0 % 04/12/2018 6:49 AM 24h00 [facility] MCV 92.0 82.0 - 99.0 fL 04/12/2018 6:49 AM [employer] [facility] MCH 30.6 27.2 - 32.6 pg 04/12/2018 6:49 AM 24h00 [facility] MCHC 33.2 31.5 - 35.5 g/dL 04/12/2018 6:49 AM [employer] [facility] RDW 14.0 11.5 - 14.5 % 04/12/2018 6:49 AM [employer] [facility] RDW-STDEV 47.3 37.1 - 48.7 fL 04/12/2018 6:49 AM [employer] [facility] PLATELETS 149 140 - 350 K/uL 04/12/2018 6:49 AM 24h00 [facility] MPV 9.5 9.3 - 12.4 fL 04/12/2018 6:49 AM SOFTWARE MAINTENANCE ENGINEER [facility] NEUTROPHILS 56 % 04/12/2018 6:49 AM [facility]. [facility] LYMPHOCYTES 37 % 04/12/2018 6:49 AM [facility] MONOCYTES 5 % 04/12/2018 6:49 AM [facility]. [facility] EOSINOPHILS 1 % 04/12/2018 6:49 AM [facility]. [facility] BASOPHILS 0 % 04/12/2018 6:49 AM [facility]. [facility] IMMATURE GRANULOCYTES 1 % 04/12/2018 6:49 AM [facility]. [facility] Comment:IG (Immature Granulo cyte) count includes Metamyelocytes, Myelocytes, and Promyelocytes NEUTROPHIL ABSOLUTE 3.34 1.90 - 7.00 K/uL 04/12/2018 6:49 AM [facility]. [facility] LYMPHOCYTE ABSOLUTE 2.24 0.70 - 4.50 K/uL 04/12/2018 6:49 AM [facility] MONOCYTE ABSOLUTE 0.32 0.10 - 1.30 K/uL 04/12/2018 6:49 AM [facility]. [facility] EOSINOPHIL ABSOLUTE 0.08 0.00 - 0.70 K/uL 04/12/2018 6:49 AM [facility]. [facility] BASOPHILS ABSOLUTE 0.01 0.00 - 0.20 K/uL 04/12/2018 6:49 AM [facility] IMMATURE GRANULOCYTES ABSOLUTE 0.03 0.00 - 0.03 K/uL 04/12/2018 6:49 AM [facility] Blood Venipuncture / Unknown 04/12/2018 6:18 AM SOFTWARE MAINTENANCE ENGINEER 04/12/2018 6:39 AM [facility] Jack Arteaga MD HEMATOLOGY YONI SERRANO [facility] CLIA# [id number] 5 [facility] [place] [id number] * (ABNORMAL) BASIC METABOLIC PANEL (04/12/2018 6:17 AM SOFTWARE MAINTENANCE ENGINEER) SODIUM 142 136 - 145 mmol/L 04/12/2018 9:00 AM [facility] - . [facility] POTASSIUM 3.6 3.5 - 5.0 mmol/L 04/12/2018 9:00 AM [facility] - . [facility] CHLORIDE 105 98 - 107 mmol/L 04/12/2018 9:00 AM [facility]. [facility] CO2 25 22 - 29 mmol/L 04/12/2018 9:00 AM [facility]. [facility] CALCIUM 8.5(L) 8.6 - 10.2 mg/dL 04/12/2018 9:00 AM [facility]. [facility] BUN 4(L) 6 - 20 mg/dL 04/12/2018 9:00 AM [facility]. [facility] CREATININE 0.50(L) 0.51 - 0.95 mg/dL 04/12/2018 9:00 AM [facility]. [facility] GLUCOSE 150(H) 74 - 99 mg/dL 04/12/2018 9:00 AM [facility] GFR >60 >=60 mL/min/1.7 3 sq meter 04/12/2018 9:00 AM [facility] Comment: eGFR has not [...] mL/min/1.7 3 sq meter 04/12/2018 9:00 AM [facility] [employer] [facility] ANION GAP 12 8 - 16 mmol/L 04/12/2018 9:00 AM [facility] [employer] [facility] Blood Venipuncture / Unknown 04/12/2018 6:17 AM SOFTWARE MAINTENANCE ENGINEER 04/12/2018 6:38 AM SOFTWARE MAINTENANCE ENGINEER Richard Mead MD CHEMISTRY ORDERABL ES Performing Organization Address [facility]/ZIP Co de Phone Number [facility]# [id number] [address] [place] [address] * PROTIME-INR (04/12/2018 6:17 AM SOFTWARE MAINTENANCE ENGINEER) PROTIME 13.8 12.7 - 15.1 Seconds 04/12/2018 7:02 AM [facility] INR 1.1 0.9 - 1.1 04/12/2018 7:02 AM [facility] Blood Venipuncture / Unknown 04/12/2018 6:17 AM SOFTWARE MAINTENANCE ENGINEER 04/12/2018 6:39 AM SOFTWARE MAINTENANCE ENGINEER Narrative [facility] - 04/12/2018 7:02 AM SOFTWARE MAINTENANCE ENGINEER INR Therapeutic Range: Adult: ?? 2.0 - 3.0 for pulmonary embolism or prophylaxis against venous ?thrombosis or systemic embolization. 2.0 - 3.0 for patients with tissue heart valves. 2.5 - 3.5 for patients with mechanical heart valves or post VT. Pediatric ??(12 years and under): 1.5 - 3.0 Although the target range in children is not well established, ?INR values of 1.5 - 3.0 are recommended for most patients. ?Higher values have been used in children with prosthetic ?cardiac valves and hereditary clotting disorders. (<3 days) therapeutic ranges have not been established. Jack Arteaga MD HEMATOLOGY YONI SERRANO [facility]# [id number] [address] [place] [address] * (ABNORMAL) LIPID PANEL (04/12/2018 6:17 AM SOFTWARE MAINTENANCE ENGINEER) CHOLESTEROL 158 <200 mg/dL 04/12/2018 7:22 AM [facility] TRIGLYCERIDE 567(H) <150 mg/dL 04/12/2018 7:22 AM [facility] HDL 16(L) 40 - 59 mg/dL 04/12/2018 7:22 AM [facility] LDL CALCULATED <100 mg/dL 04/12/2018 7:22 AM [facility] Comment:Calculated LDL is no t accurate when the Triglyceride value exceeds 400. NON-HDL CHOLESTEROL 142(H) <130 mg/dL 04/12/2018 7:22 AM [facility] Blood Venipuncture / Unknown 04/12/2018 6:17 AM [facility] 04/12/2018 6:38 AM [facility] - 04/12/2018 7:22 AM SOFTWARE MAINTENANCE ENGINEER TOTAL CHOLESTEROL ??mg/dL ??Desirable <200 ??Borderline [...] (NCEP/AMA) Jack Arteaga MD CHEMISTRY ORDER OSVALDO [facility]# [id number] [address] [facility] [address] [address] * (ABNORMAL) POC GLUCOSE (04/12/2018 3:59 AM SOFTWARE MAINTENANCE ENGINEER) GLUCOSE POC 154(H) 74 - 99 mg/dL 04/12/2018 4:21 AM [facility] COMMENT, GLU POC Notified RN/MD 04/12/2018 4:21 AM SOFTWARE MAINTENANCE ENGINEER [facility] RIGHT OF WAY MANAGER NAME [facility] MEERA [place] 04/12/2018 4:21 AM SOFTWARE MAINTENANCE ENGINEER [facility] Whole blood specimen (specimen) 04/12/2018 3:59 AM SOFTWARE MAINTENANCE ENGINEER 04/12/2018 4:21 AM SOFTWARE MAINTENANCE ENGINEER Richard Mead MD POINT OF CARE TEST ING Performing Organization Address [facility] Co de Phone Number [facility] CLIA# [id number] [address] [place] [address] * (ABNORMAL) POC GLUCOSE (04/11/2018 11:59 PM SOFTWARE MAINTENANCE ENGINEER) GLUCOSE POC 122(H) 74 - 99 mg/dL 04/12/2018 12:27 AM SOFTWARE MAINTENANCE ENGINEER [facility] COMMENT, GLU POC Notified RN/ 04/12/2018 12:27 AM [facility] RIGHT OF WAY MANAGER NAME [facility] MEERA [place] 04/12/2018 12:27 AM SOFTWARE MAINTENANCE ENGINEER [facility] Whole blood specimen (specimen) 04/11/2018 11:59 PM SOFTWARE MAINTENANCE ENGINEER 04/12/2018 12:27 AM SOFTWARE MAINTENANCE ENGINEER Richard Mead MD POINT OF CARE TEST ING Performing Organization Address [facility] Co de Phone Number [facility] CLIA# [id number] [address] [place] [address] * (ABNORMAL) POC GLUCOSE (04/11/2018 8:17 PM SOFTWARE MAINTENANCE ENGINEER) GLUCOSE POC 146(H) 74 - 99 mg/dL 04/11/2018 8:41 PM SOFTWARE MAINTENANCE ENGINEER [facility] COMMENT, GLU POC Notified RN/MD 04/11/2018 8:41 PM SOFTWARE MAINTENANCE ENGINEER [facility] RIGHT OF WAY MANAGER NAME [facility] MEERA [place] 04/11/2018 8:41 PM SOFTWARE MAINTENANCE ENGINEER [facility] Whole blood specimen (specimen) 04/11/2018 8:17 PM SOFTWARE MAINTENANCE ENGINEER 04/11/2018 8:41 PM SOFTWARE MAINTENANCE ENGINEER Ricahrd Mead MD POINT OF CARE TEST ING Performing Organization Address City/[facility]/ZIP Co de Phone Number [facility] CLIA# [id number] [address] [place] [address] * (ABNORMAL) POC GLUCOSE (04/11/2018 4:58 PM SOFTWARE MAINTENANCE ENGINEER) GLUCOSE POC 149(H) 74 - 99 mg/dL 04/11/2018 5:10 PM SOFTWARE MAINTENANCE ENGINEER [facility] RIGHT OF WAY MANAGER NAME POC TARA TERRAZAS 04/11/2018 5:10 PM SOFTWARE MAINTENANCE ENGINEER [facility] Whole blood specimen (specimen) 04/11/2018 4:58 PM SOFTWARE MAINTENANCE ENGINEER 04/11/2018 5:10 PM SOFTWARE MAINTENANCE ENGINEER Richard Mead MD POINT OF CARE TEST ING Performing Organization Address [facility] Co de Phone Number [facility] CLIA# [id number] [address] [place] [address] * (ABNORMAL) POC GLUCOSE (04/11/2018 12:22 PM SOFTWARE MAINTENANCE ENGINEER) GLUCOSE POC 151(H) 74 - 99 mg/dL 04/11/2018 12:34 PM SOFTWARE MAINTENANCE ENGINEER [facility] RIGHT OF WAY MANAGER NAME POC LESA RODRIGUEZ 04/11/2018 12:34 PM SOFTWARE MAINTENANCE ENGINEER [facility] Whole blood specimen (specimen) 04/11/2018 12:22 PM SOFTWARE MAINTENANCE ENGINEER 04/11/2018 12:34 PM SOFTWARE MAINTENANCE ENGINEER Richard Mead MD POINT OF CARE TEST ING Performing Organization Address [facility]/ZIP Co de Phone Number [facility] CLIA# [id number] [address] [place] [address] * VERIFICATION BLOOD GROUP (04/11/2018 8:20 AM SOFTWARE MAINTENANCE ENGINEER) ABO GROUP B 04/11/2018 9:11 AM [facility] [employer] [facility] [facility] -- [facility] RH (D) TYPE Positive 04/11/2018 9:11 AM [facility] [employer] [facility] [facility] -- [facility] Blood Collection / Unknown 04/11/2018 8:20 AM SOFTWARE MAINTENANCE ENGINEER 04/11/2018 8:28 AM SOFTWARE MAINTENANCE ENGINEER Jack Arteaga MD BLOOD BANK YONI SERRANO Performing Organization Address City/[facility]/ZIP Co de Phone Number [employer] -- [facility] CLIA# [id number] [address] [place] [address] * (ABNORMAL) POC GLUCOSE (04/11/2018 7:57 AM SOFTWARE MAINTENANCE ENGINEER) Pathologist [facility] GLUCOSE POC 162(H) 74 - 99 mg/dL 04/11/2018 8:12 AM [facility] [employer] [facility] - [facility] RIGHT OF WAY MANAGER NAME POC DANIELLE RODRIGUEZSHAWNEE 04/11/2018 8:12 AM SOFTWARE MAINTENANCE ENGINEER [facility] - [facility] Whole blood specimen (specimen) 04/11/2018 7:57 AM SOFTWARE MAINTENANCE ENGINEER 04/11/2018 8:12 AM SOFTWARE MAINTENANCE ENGINEER Richard Mead MD POINT OF CARE TEST ING Performing Organization Address [facility] Co de Phone Number [facility] - [facility]# [id number] [address] [place] [address] * (ABNORMAL) BASIC METABOLIC PANEL (04/11/2018 7:01 AM SOFTWARE MAINTENANCE ENGINEER) SODIUM 136 136 - 145 mmol/L 04/11/2018 8:08 AM SOFTWARE MAINTENANCE ENGINEER [employer] [facility] [facility] - [facility] POTASSIUM 3.6 3.5 - 5.0 mmol/L 04/11/2018 8:08 AM [facility] [employer] [facility] - . [facility] CHLORIDE 101 98 - 107 mmol/L 04/11/2018 8:08 AM SOFTWARE MAINTENANCE ENGINEER [employer] [facility] [facility] - . [facility] CO2 24 22 - 29 mmol/L 04/11/2018 8:08 AM SOFTWARE MAINTENANCE ENGINEER [employer] [facility] - . [facility] CALCIUM 8.5(L) 8.6 - 10.2 mg/dL 04/11/2018 8:08 AM [facility] BUN 8 6 - 20 mg/dL 04/11/2018 8:08 AM [facility] CREATININE 0.61 0.51 - 0.95 mg/dL 04/11/2018 8:08 AM [facility] GLUCOSE 162(H) 74 - 99 mg/dL 04/11/2018 8:08 AM [facility] GFR >60 >=60 mL/min/1.7 3 sq meter 04/11/2018 8:08 AM [facility] Comment: eGFR has not [...] mL/min/1.7 3 sq meter 04/11/2018 8:08 AM [facility] ANION GAP 11 8 - 16 mmol/L 04/11/2018 8:08 AM [facility] Blood Venipuncture / Unknown 04/11/2018 7:01 AM SOFTWARE MAINTENANCE ENGINEER 04/11/2018 7:21 AM SOFTWARE MAINTENANCE ENGINEER Richard Mead MD CHEMISTRY ORDERABL ES [facility] [id number] [address] [place] [address] * (ABNORMAL) CBC WITH DIFFERENTIAL (04/11/2018 7:01 AM SOFTWARE MAINTENANCE ENGINEER) WBC 7.1 4.0 - 9.8 K/uL 04/11/2018 7:27 AM [facility] LABORATORY SERVICES - [facility] RBC 3.70(L) 3.90 - 4.90 M/uL 04/11/2018 7:27 AM [facility] [employer] [facility] - [facility] HEMOGLOBIN 11.0(L) 11.8 - 14.8 g/dL 04/11/2018 7:27 AM [facility] - [facility] HEMATOCRIT 34.7(L) 35.5 - 44.0 % 04/11/2018 7:27 AM [facility] [employer] [facility] - [facility] MCV 93.8 82.0 - 99.0 fL 04/11/2018 7:27 AM [facility] - [facility] MCH 29.7 27.2 - 32.6 pg 04/11/2018 7:27 AM [facility] [facility] - [facility] MCHC 31.7 31.5 - 35.5 g/dL 04/11/2018 7:27 AM [facility] - [facility] RDW 14.4 11.5 - 14.5 % 04/11/2018 7:27 AM [facility] - [facility] RDW-STDEV 49.6(H) 37.1 - 48.7 fL 04/11/2018 7:27 AM SOFTWARE MAINTENANCE ENGINEER [employer] - [facility] PLATELETS 183 140 - 350 K/uL 04/11/2018 7:27 AM [facility] [facility] - [facility] MPV 9.0(L) 9.3 - 12.4 fL 04/11/2018 7:27 AM [facility] - [facility] NEUTROPHILS 59 % 04/11/2018 7:27 AM SOFTWARE MAINTENANCE ENGINEER [facility] - [facility] LYMPHOCYTES 33 % 04/11/2018 7:27 AM 24h00 LABORATORY SERVICES - [facility] MONOCYTES 6 % 04/11/2018 7:27 AM 24h00 LABORATORY SERVICES - [facility] EOSINOPHILS 1 % 04/11/2018 7:27 AM 24h00 LABORATORY SERVICES - [facility] BASOPHILS 0 % 04/11/2018 7:27 AM SOFTWARE MAINTENANCE ENGINEER [facility] - [facility] IMMATURE GRANULOCYTES 1 % 04/11/2018 7:27 AM SOFTWARE MAINTENANCE ENGINEER [facility] Comment:IG (Immature Granulo cyte) count includes Metamyelocytes, Myelocytes, and Promyelocytes NEUTROPHIL ABSOLUTE 4.18 1.90 - 7.00 K/uL 04/11/2018 7:27 AM [facility] LYMPHOCYTE ABSOLUTE 2.35 0.70 - 4.50 K/uL 04/11/2018 7:27 AM [facility] MONOCYTE ABSOLUTE 0.43 0.10 - 1.30 K/uL 04/11/2018 7:27 AM [facility] EOSINOPHIL ABSOLUTE 0.05 0.00 - 0.70 K/uL 04/11/2018 7:27 AM [facility] BASOPHILS ABSOLUTE 0.03 0.00 - 0.20 K/uL 04/11/2018 7:27 AM [facility] IMMATURE GRANULOCYTES ABSOLUTE 0.04(H) 0.00 - 0.03 K/uL 04/11/2018 7:27 AM [facility] Blood Venipuncture / Unknown 04/11/2018 7:01 AM SOFTWARE MAINTENANCE ENGINEER 04/11/2018 7:21 AM [facility] Jack Arteaga MD HEMATOLOGY [facility]# [id number] [address] [facility] [place] [address] * (ABNORMAL) LIPID PANEL (04/11/2018 7:01 AM SOFTWARE MAINTENANCE ENGINEER) CHOLESTEROL 388(H) <200 mg/dL 04/11/2018 8:10 AM [facility] TRIGLYCERIDE 1,490(H) <150 mg/dL 04/11/2018 8:10 AM [facility] HDL 40 - 59 mg/dL 04/11/2018 8:10 AM [facility] Comment: Measured HDL is not accurate when the Triglyceride value exceeds 1200. LDL CALCULATED <100 mg/dL 04/11/2018 8:10 AM [facility] Comment:Calculated LDL is no t accurate when the Triglyceride value exceeds 400. NON-HDL CHOLESTEROL <130 mg/dL 04/11/2018 8:10 AM [facility] Comment:Non HDL Cholesterol cannot be calculated when the HDL value is suppressed. Blood Venipuncture / Unknown 04/11/2018 7:01 AM SOFTWARE MAINTENANCE ENGINEER 04/11/2018 7:21 AM SOFTWARE MAINTENANCE ENGINEER Narrative [facility] - 04/11/2018 8:10 AM SOFTWARE MAINTENANCE ENGINEER TOTAL CHOLESTEROL ??mg/dL ??Desirable <200 ??Borderline [...] (NCEP/AMA) Richard Mead MD CHEMISTRY ORDERABL ES [facility]# [id number] [address] [facility] [address] * PROTIME-INR (04/11/2018 7:01 AM SOFTWARE MAINTENANCE ENGINEER) PROTIME 13.0 12.7 - 15.1 Seconds 04/11/2018 7:36 AM [facility] INR 1.0 0.9 - 1.1 04/11/2018 7:36 AM [facility] Blood Venipuncture / Unknown 04/11/2018 7:01 AM SOFTWARE MAINTENANCE ENGINEER 04/11/2018 7:21 AM SOFTWARE MAINTENANCE ENGINEER Narrative [facility] - 04/11/2018 7:36 AM SOFTWARE MAINTENANCE ENGINEER INR Therapeutic Range: Adult: ?? 2.0 - 3.0 for pulmonary embolism or prophylaxis against venous ?thrombosis or systemic embolization. 2.0 - 3.0 for patients with tissue heart valves. 2.5 - 3.5 for patients with mechanical heart valves or post VT. Pediatric ??(12 years and under): 1.5 - 3.0 Although the target range in children is not well established, ?INR values of 1.5 - 3.0 are recommended for most patients. ?Higher values have been used in children with prosthetic ?cardiac valves and hereditary clotting disorders. [place] (<3 days) therapeutic ranges have not been established. Richard Mead MD HEMATOLOGY ORDERAB LES Performing Organization Address [facility] Co de Phone Number [employer] [facility]# [id number] [address] [place] [address] * TYPE AND SCREEN (04/11/2018 6:51 AM SOFTWARE MAINTENANCE ENGINEER) Pathologist [facility] ABO GROUP B 04/11/2018 8:23 AM [facility] [employer] [facility] [facility] -- [facility] RH (D) TYPE Positive 04/11/2018 8:23 AM SOFTWARE MAINTENANCE ENGINEER [facility] -- [facility] ANTIBODY SCREEN Negative 04/11/2018 8:23 AM [employer] [facility] -- [facility] Blood Venipuncture / Unknown 04/11/2018 6:51 AM SOFTWARE MAINTENANCE ENGINEER 04/11/2018 7:20 AM SOFTWARE MAINTENANCE ENGINEER Richard Mead MD BLOOD BANK ORDERAB LES Performing Organization Address [facility] Co de Phone Number [employer] [place]# [id number] [address] [place] [address] * (ABNORMAL) POC GLUCOSE (04/11/2018 4:08 AM SOFTWARE MAINTENANCE ENGINEER) GLUCOSE POC 163(H) 74 - 99 mg/dL 04/11/2018 4:22 AM SOFTWARE MAINTENANCE ENGINEER [facility] COMMENT, GLU POC Notified RN/MD 04/11/2018 4:22 AM SOFTWARE MAINTENANCE ENGINEER [employer] [facility] - [facility] RIGHT OF WAY MANAGER NAME POC JACK HENRIQUEZ 04/11/2018 4:22 AM SOFTWARE MAINTENANCE ENGINEER [facility] Whole blood specimen (specimen) 04/11/2018 4:08 AM SOFTWARE MAINTENANCE ENGINEER 04/11/2018 4:22 AM SOFTWARE MAINTENANCE ENGINEER Richard Mead MD POINT OF CARE TEST ING [facility] CLIA# [id number] [address] [place] [address] * (ABNORMAL) POC GLUCOSE (04/11/2018 12:15 AM SOFTWARE MAINTENANCE ENGINEER) GLUCOSE POC 157(H) 74 - 99 mg/dL 04/11/2018 12:34 AM SOFTWARE MAINTENANCE ENGINEER [facility] COMMENT, GLU POC Notified RN/MD 04/11/2018 12:34 AM SOFTWARE MAINTENANCE ENGINEER [facility] RIGHT OF WAY MANAGER NAME POC JACK HENRIQUEZ 04/11/2018 12:34 AM SOFTWARE MAINTENANCE ENGINEER [facility] Whole blood specimen (specimen) 04/11/2018 12:15 AM SOFTWARE MAINTENANCE ENGINEER 04/11/2018 12:34 AM SOFTWARE MAINTENANCE ENGINEER Richard Mead MD POINT OF CARE TEST ING Performing Organization Address [facility]/ZIP Co de Phone Number [facility] CLIA# [id number] [address] [place] [address] * (ABNORMAL) POC GLUCOSE (04/10/2018 8:43 PM SOFTWARE MAINTENANCE ENGINEER) GLUCOSE POC 152(H) 74 - 99 mg/dL 04/10/2018 8:59 PM SOFTWARE MAINTENANCE ENGINEER [employer] LABORATORY SERVICES [facility] RIGHT OF WAY MANAGER NAME POC KAREN SHOOK 04/10/2018 8:59 PM SOFTWARE MAINTENANCE ENGINEER [employer] [facility] [facility] Whole blood specimen (specimen) 04/10/2018 8:43 PM SOFTWARE MAINTENANCE ENGINEER 04/10/2018 8:59 PM SOFTWARE MAINTENANCE ENGINEER Richard Mead MD POINT OF CARE TEST ING [facility] CLIA# [id number] [address] [place] [address] * (ABNORMAL) POC GLUCOSE (04/10/2018 5:49 PM SOFTWARE MAINTENANCE ENGINEER) GLUCOSE POC 121(H) 74 - 99 mg/dL 04/10/2018 6:02 PM SOFTWARE MAINTENANCE ENGINEER [facility] RIGHT OF WAY MANAGER NAME POC FRANCESCA MENG 04/10/2018 6:02 PM SOFTWARE MAINTENANCE ENGINEER [facility] Whole blood specimen (specimen) 04/10/2018 5:49 PM SOFTWARE MAINTENANCE ENGINEER 04/10/2018 6:02 PM SOFTWARE MAINTENANCE ENGINEER Richard Mead MD POINT OF CARE TEST ING Performing Organization Address City/State/[facility] Co de Phone Number [facility]# [id number] [address] [place] [address] * IR VENOUS ACCESS (04/10/2018 4:22 PM SOFTWARE MAINTENANCE ENGINEER) Anatomical Region Laterality Modality X-Ray Angiograph y 04/10/2018 3:50 PM SOFTWARE MAINTENANCE ENGINEER Impressions 04/10/2018 4:30 PM SOFTWARE MAINTENANCE ENGINEER IMPRESSION: Successful tunneled dialysis/pheresis catheter placement. PLAN: The tunneled dialysis/pheresis catheter is ready to use. LOCATION: This examination/procedure and interpretation was performed by Kayla Sheffield MD at ??[facility]. Narrative 04/10/2018 4:30 PM SOFTWARE MAINTENANCE ENGINEER PROCEDURE/EXAM(S): ULTRASOUND/FLUOROSCOPY GUIDED TUNNELED DIALYSIS/PHERESIS CATHETER PLACEMENT TIME/DATE: 04/10/2018 3:50 PM. PHYSICIANS/LOCATION:Kayla Sheffield MD at [facility]. CLINICAL INFORMATION/INDICATION: Female of 42 years age [...] 04/10/2018 3:50 PM. PHYSICIANS/LOCATION:Kayla Sheffield MD at [facility]. CLINICAL INFORMATION/INDICATION: Female of 42 years age [...] was performed by Kayla Sheffield MD at [facility]. Kayla Sheffield MD IR ORDERABLES * EKG 12-LEAD (04/10/2018 3:29 PM SOFTWARE MAINTENANCE ENGINEER) 04/10/2018 3:29 PM SOFTWARE MAINTENANCE ENGINEER Narrative INTERFACE SYSTEM - 04/10/2018 6:51 PM SOFTWARE MAINTENANCE ENGINEER ? Stationary ECG Study ? [facility] ? Test Date: ?04/10/2018 3:29 PM Pat Name: ? CASANDRA CRAFTSERGIO ?Department: ?? 45 ?Room: ? 7380 1 Gender: ? F ?Human Anatomy Teacher: ?? marbd1 : ?1975 ? Requested By: YADIRA HUFF DANIELLE Order Number: [id number] ?Reading MD: ?? Gigi Maza ? Measurements Intervals ?[place] ? Rate: ? 74 ? P: ?65 NV: ? 154 ?QRS: ?75 QRSD: ? 93 ? T: ?-4 QT: ? 390 ? QTc: ?433 ? Interpretive Statements ? Sinus rhythm Low voltage, precordial leads Borderline T abnormalities, diffuse leads Electronically Signed On 04-10-2018 18:51:59 SOFTWARE MAINTENANCE ENGINEER by Gigi Maza Procedure Note Gigi Maza MD - 07/03/2021 Stationary ECG Study [facility] Test Date: 04/10/2018 3:29 PM Pat Name: CASANDRA DOSS Department: 45 Room: [facility] 1 Gender: F Human Anatomy Teacher: sb : 1975 Requested By: YADIRA SANTOS Order Number: [id number] Reading MD: Gigi Maza Measurements Intervals [place] Rate: 74 P: 65 NV: 154 QRS: 75 QRSD: 93 T: -4 QT: 390 QTc: 433 Interpretive Statements Sinus rhythm Low voltage, precordial leads Borderline T abnormalities, diffuse leads Electronically Signed On 04-10-2018 18:51:59 SOFTWARE MAINTENANCE ENGINEER by Gigi Maza Yadira Huff MD ECG ORDERABLES INTERFACE SYSTEM Refer to clinic/hospital department * (ABNORMAL) POC GLUCOSE (04/10/2018 11:53 AM SOFTWARE MAINTENANCE ENGINEER) GLUCOSE POC 121(H) 74 - 99 mg/dL 04/10/2018 12:13 PM SOFTWARE MAINTENANCE ENGINEER [facility] RIGHT OF WAY MANAGER NAME POC INGRIS CHAMBERS 04/10/2018 12:13 PM SOFTWARE MAINTENANCE ENGINEER [facility] Whole blood specimen (specimen) 04/10/2018 11:53 AM SOFTWARE MAINTENANCE ENGINEER 04/10/2018 12:13 PM SOFTWARE MAINTENANCE ENGINEER Richard Mead MD POINT OF CARE TEST ING [facility] CLIA# [id number] [address] [place] [address] * CT ABDOMEN W CONTRAST (04/10/2018 11:35 AM SOFTWARE MAINTENANCE ENGINEER) Anatomical Region Laterality Modality Abdomen Computed Tomogra phy 04/10/2018 11:3 9 AM SOFTWARE MAINTENANCE ENGINEER Impressions 04/10/2018 1:27 PM SOFTWARE MAINTENANCE ENGINEER IMPRESSION: ?? Mild stringy infiltration of the [...] Iterative 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 DICTATION LOCATION: Location 1 [facility] 04/10/2018 1:27 PM SOFTWARE MAINTENANCE ENGINEER CT OF THE ABDOMEN WITH INTRAVENOUS CONTRAST [...] 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 DICTATION LOCATION: Location 1 - [facility] Richard Mead MD CT ORDERABLES * (ABNORMAL) POC GLUCOSE (04/09/2018 11:58 PM SOFTWARE MAINTENANCE ENGINEER) GLUCOSE POC 147(H) 74 - 99 mg/dL 04/10/2018 12:10 AM [facility] [place] [facility] [address] OF [address] MANAGER NAME POC JACK HENRIQUEZ 04/10/2018 12:10 AM [facility] Whole blood specimen (specimen) 04/09/2018 11:58 PM SOFTWARE MAINTENANCE ENGINEER 04/10/2018 12:10 AM SOFTWARE MAINTENANCE ENGINEER Maco Duque MD POINT OF CARE TESTI NG [facility]# [id number] [address] [place] [id number] * (ABNORMAL) URINALYSIS WITH REFLEX MICROSCOPIC (04/09/2018 9:07 PM SOFTWARE MAINTENANCE ENGINEER) COLOR UA Yellow Pale to Dark Yellow 04/09/2018 9:32 PM SOFTWARE MAINTENANCE ENGINEER [facility] CLARITY UA Clear Clear 04/09/2018 9:32 PM [facility] SPECIFIC GRAVITY UA 1.020 1.003 - 1.035 04/09/2018 9:32 PM [facility] [place] PH UA 5.0 5.0 - 8.0 04/09/2018 9:32 PM [facility] [place] LEUKOCYTE ESTERASE UA Negative Negative 04/09/2018 9:32 PM [facility] NITRITE UA Negative Negative 04/09/2018 9:32 PM [facility] [place] PROTEIN UA Negative Negative 04/09/2018 9:32 PM [facility] GLUCOSE UA 3+(A) Negative 04/09/2018 9:32 PM [facility] KETONES UA Trace(A) Negative 04/09/2018 9:32 PM [facility] UROBILINOGEN UA Normal <2.0 mg/dL 8 9:32 PM [facility] BILIRUBIN UA Negative Negative 04/09/2018 9:32 PM [facility] BLOOD UA Negative Negative 04/09/2018 9:32 PM [facility] Urine URINE SPECIMEN OBTAINED BY CLEAN CATCH PROCEDURE / Unknown Collection / Unknown 04/09/2018 9:07 PM SOFTWARE MAINTENANCE ENGINEER 04/09/2018 9:07 PM SOFTWARE MAINTENANCE ENGINEER Yadira Huff MD URINE ORDERABLES [id number] [address] [facility] [place] [place] [address] * (ABNORMAL) TRIGLYCERIDE (04/09/2018 7:26 PM SOFTWARE MAINTENANCE ENGINEER) TRIGLYCERIDE 2,480(H) <150 mg/dL 04/09/2018 10:11 PM SOFTWARE MAINTENANCE ENGINEER [facility] Blood Venipuncture / Unknown 04/09/2018 7:26 PM SOFTWARE MAINTENANCE ENGINEER 04/09/2018 7:31 PM SOFTWARE MAINTENANCE ENGINEER Narrative [facility] KIMO - 04/09/2018 10:11 PM SOFTWARE MAINTENANCE ENGINEER TRIGLYCERIDES ? mg/dL Normal ?< 150 Borderline High ?150 - 199 High ? 200 - 499 Very High ? >= 500 Based on AHA/NCEP Guidelines. Yadira Huff MD CHEMISTRY ORDERABLES Performing Organization Address [facility]/ZIP Co de Phone Number [facility] CLIA# [id number] [address] [place] [id number] * LIPASE (04/09/2018 7:26 PM SOFTWARE MAINTENANCE ENGINEER) [facility] LIPASE 35 13 - 60 U/L 04/09/2018 9:06 PM [facility] [place] Blood Venipuncture / Unknown 04/09/2018 7:26 PM SOFTWARE MAINTENANCE ENGINEER 04/09/2018 7:31 PM SOFTWARE MAINTENANCE ENGINEER Yadira Huff MD CHEMISTRY ORDERABLES Performing Organization Address [facility] Co de Phone Number [facility] [id number] [address] [place] [address] * (ABNORMAL) COMPREHENSIVE METABOLIC PANEL (04/09/2018 7:26 PM SOFTWARE MAINTENANCE ENGINEER) Pathologist [facility] SODIUM 135(L) 136 - 145 mmol/L 04/09/2018 8:53 PM SOFTWARE MAINTENANCE ENGINEER [employer] [facility] POTASSIUM 4.2 3.5 - 5.0 mmol/L 04/09/2018 8:53 PM SOFTWARE MAINTENANCE ENGINEER [employer] [facility] CHLORIDE 97(L) 98 - 107 mmol/L 04/09/2018 8:53 PM [facility] - . [place] CO2 22 22 - 29 mmol/L 04/09/2018 8:53 PM [facility]ORATORY SERVICES - . [facility] CALCIUM 9.7 8.6 - 10.2 mg/dL 04/09/2018 8:53 PM [facility] BUN 12 6 - 20 mg/dL 04/09/2018 8:53 PM [facility] [employer] LABORATORY [facility] CREATININE 0.57 0.51 - 0.95 mg/dL 04/09/2018 8:53 PM [facility] [employer] [facility] GLUCOSE 227(H) 74 - 99 mg/dL 04/09/2018 8:53 PM [facility] [employer] [facility] TOTAL PROTEIN 7.4 6.7 - 8.6 g/dL 04/09/2018 8:53 PM [facility] [employer] [facility] ALBUMIN 4.3 3.5 - 5.2 g/dL 04/09/2018 8:53 PM [facility] [employer] [facility] BILIRUBIN TOTAL 0.2(L) 0.3 - 1.2 mg/dL 04/09/2018 8:53 PM [facility] [employer] [facility] ALKALINE PHOSPHATASE 75 35 - 104 U/L 04/09/2018 8:53 PM [facility] [employer] [facility] AST <5 <33 U/L 04/09/2018 8:53 PM [facility] [employer] [facility] Comment: Verified by repeat analysis. Hemolysis present. Result may be falsely elevated. ALT <5 <34 U/L 04/09/2018 8:53 PM 24h00 LABORATORY [facility] Comment:Verified by repeat a nalysis. GFR >60 >=60 mL/min/1.7 3 sq meter 04/09/2018 8:53 PM [employer] [facility] Comment: eGFR has not [...] mL/min/1.7 3 sq meter 04/09/2018 8:53 PM SOFTWARE MAINTENANCE ENGINEER [employer] [facility] ANION GAP 16 8 - 16 mmol/L 04/09/2018 8:53 PM 24h00 [facility] Blood Venipuncture / Unknown 04/09/2018 7:26 PM SOFTWARE MAINTENANCE ENGINEER 04/09/2018 7:31 PM [facility] - 04/09/2018 8:53 PM SOFTWARE MAINTENANCE ENGINEER Samples containing indocyanine green cause interferences on Total and/or Direct Bilirubin and must not be measured. Yadira Huff MD CHEMISTRY ORDERABLES [facility] CLIA# [id number] [address] [facility] [place] [place] [address] * (ABNORMAL) CBC WITH DIFFERENTIAL (04/09/2018 7:26 PM SOFTWARE MAINTENANCE ENGINEER) WBC 9.3 4.0 - 9.8 K/uL 04/09/2018 7:37 PM [facility] RBC 4.46 3.90 - 4.90 M/uL 04/09/2018 7:37 PM [facility] HEMOGLOBIN 13.5 11.8 - 14.8 g/dL 04/09/2018 7:37 PM [facility] HEMATOCRIT 40.5 35.5 - 44.0 % 04/09/2018 7:37 PM [facility] MCV 90.8 82.0 - 99.0 fL 04/09/2018 7:37 PM [facility] MCH 30.3 27.2 - 32.6 pg 04/09/2018 7:37 PM [facility] MCHC 33.3 31.5 - 35.5 g/dL 04/09/2018 7:37 PM [facility] RDW 14.0 11.5 - 14.5 % 04/09/2018 7:37 PM [facility] [place] RDW-STDEV 46.5 37.1 - 48.7 fL 04/09/2018 7:37 PM [facility] PLATELETS 246 140 - 350 K/uL 04/09/2018 7:37 PM [facility] MPV 9.1(L) 9.3 - 12.4 fL 04/09/2018 7:37 PM [facility] NEUTROPHILS 63 % 04/09/2018 7:37 PM [facility] LYMPHOCYTES 30 % 04/09/2018 7:37 PM [facility] MONOCYTES 5 % 04/09/2018 7:37 PM [facility] EOSINOPHILS 1 % 04/09/2018 7:37 PM [facility] BASOPHILS 0 % 04/09/2018 7:37 PM [facility] IMMATURE GRANULOCYTES 1 % 04/09/2018 7:37 PM [facility] Comment:IG (Immature Granulo cyte) count includes Metamyelocytes, Myelocytes, and Promyelocytes NEUTROPHIL ABSOLUTE 5.86 1.90 - 7.00 K/uL 04/09/2018 7:37 PM [facility] LYMPHOCYTE ABSOLUTE 2.79 0.70 - 4.50 K/uL 04/09/2018 7:37 PM [facility] MONOCYTE ABSOLUTE 0.48 0.10 - 1.30 K/uL 04/09/2018 7:37 PM [facility] EOSINOPHIL ABSOLUTE 0.05 0.00 - 0.70 K/uL 04/09/2018 7:37 PM [facility] BASOPHILS ABSOLUTE 0.04 0.00 - 0.20 K/uL 04/09/2018 7:37 PM [facility] IMMATURE GRANULOCYTES ABSOLUTE 0.06(H) 0.00 - 0.03 K/uL 04/09/2018 7:37 PM [facility] Blood Venipuncture / Unknown 04/09/2018 7:26 PM SOFTWARE MAINTENANCE ENGINEER 04/09/2018 7:31 PM SOFTWARE MAINTENANCE ENGINEER Yadira Huff MD HEMATOLOGY ORDERABLE S [facility] CLIA# [id number] [address] [facility] [place] [place] [address] * EKG 12-LEAD (04/09/2018 6:10 PM SOFTWARE MAINTENANCE ENGINEER) 04/09/2018 6:10 PM SOFTWARE MAINTENANCE ENGINEER Narrative INTERFACE SYSTEM - 04/10/2018 7:09 PM SOFTWARE MAINTENANCE ENGINEER ? Stationary ECG Study ? [facility] ? Test Date: ?04/09/2018 6:10 PM Pat Name: ? CASANDRA DSOS ?Department: ?? 35 ?Room: ? 7380 1 Gender: ? F ?Human Anatomy Teacher: ?? : ?1975 ? Requested By: YADIRA HUFF DANIELLE Order Number: [id number] ?Reading MD: ?? Gigi Maza ? Measurements Intervals ?[place] ? Rate: ? 96 ? P: ?50 NV: ? 153 ?QRS: ?52 QRSD: ? 91 ? T: ?-9 QT: ? 348 ? QTc: ?440 ? Interpretive Statements ? Sinus rhythm Low voltage, precordial leads Borderline T abnormalities Electronically Signed On 04-10-2018 19:09:24 SOFTWARE MAINTENANCE ENGINEER by Gigi Maza Procedure Note Gigi Maza MD - 07/03/2021 Stationary ECG Study [facility] [place] Test Date: 04/09/2018 6:10 PM Pat Name: CASANDRA DOSS Department: 35 Room: 73 1 Gender: F Human Anatomy Teacher: : 1975 Requested By: YADIRA SANTOS Order Number: [id number] Reading ZOE Maza Measurements Intervals [place] Rate: 96 P: 50 NV: 153 QRS: 52 QRSD: 91 T: -9 QT: 348 QTc: 440 Interpretive Statements Sinus rhythm Low voltage, precordial leads Borderline T abnormalities Electronically Signed On 04-10-2018 19:09:24 SOFTWARE MAINTENANCE ENGINEER by Gigi Maza Yadira Huff MD ECG [...] 1128, Routine New Bag 04/11/2018 10:33 AM SOFTWARE MAINTENANCE ENGINEER 2,000 mg 240 mL/hr calcium GLUCONATE 2,000 mg in sodium chloride 0.9% 120 mL IVPB 2,000 mg, IV, INTRA-PROCEDURE ONCE, 1 dose, Starting on 04/12/18 at 1230, Until 04/12/18 at 1333, Routine Restarted 04/12/2018 12:44 PM SOFTWARE MAINTENANCE ENGINEER 144 mL/hr Rate Verify 04/12/2018 12:44 PM SOFTWARE MAINTENANCE ENGINEER 144 mL/hr New Bag 04/12/2018 12:43 PM SOFTWARE MAINTENANCE ENGINEER 2,000 mg 144 mL/hr calcium GLUCONATE 2,000 mg in sodium chloride 0.9% 120 mL IVPB 2,000 mg, IV, ONE TIME ONLY, 1 dose, On 04/12/18 at 1900, Routine New Bag 04/12/2018 6:59 PM SOFTWARE MAINTENANCE ENGINEER 2,000 mg 240 mL/hr citalopram (CeleXA) tablet 40 mg 40 mg, Oral, DAILY AT BEDTIME, First dose on Katie 04/10/18 at 2100, Until Discontinued, Routine Given 04/13/2018 8:01 PM SOFTWARE MAINTENANCE ENGINEER 40 mg Given 04/12/2018 11:51 PM SOFTWARE MAINTENANCE ENGINEER 40 mg Given 04/11/2018 8:39 PM SOFTWARE MAINTENANCE ENGINEER 40 mg dextrose 5 % in water 250 mL flush bag 25 mL 25 mL, IV, SEE ADMIN INSTRUCTIONS, Starting on Sat04/11/18 at 1626, Until Sat04/14/18 at 2202, Routine dextrose 5% - lactated ringers infusion IV, at 150 mL/hr, CONTINUOUS, Starting on Katie 04/10/18 at 1000, Until 04/13/18 at 0735, Routine Rate Verify 04/13/2018 2:18 AM SOFTWARE MAINTENANCE ENGINEER 150 mL/hr Rate Verify 04/13/2018 2:15 AM SOFTWARE MAINTENANCE ENGINEER 150 mL/hr Rate Verify 04/12/2018 11:53 PM SOFTWARE MAINTENANCE ENGINEER 150 mL/hr dextrose 5% - sodium chloride 0.45% infusion IV, at 100 mL/hr, CONTINUOUS, Starting on Sat04/13/18 at 0745, Until Sat04/14/18 at 2202, Routine Restarted 04/14/2018 9:22 AM SOFTWARE MAINTENANCE ENGINEER 100 m L/hr Rate Verify 04/14/2018 6:00 AM SOFTWARE MAINTENANCE ENGINEER 100 mL/hr Rate Verify 04/14/2018 5:06 AM SOFTWARE MAINTENANCE ENGINEER 100 mL/hr dextrose 5% - sodium chloride [...] 1000, Itching, Routine Given 04/11/2018 6:34 AM SOFTWARE MAINTENANCE ENGINEER 12.5 mg Given 04/10/2018 5:53 PM SOFTWARE MAINTENANCE ENGINEER 12.5 mg diphenhydrAMINE (BENADRYL) tablet 25 mg 25 mg, Oral, EVERY 6 HOURS PRN, Starting on Sat04/10/18 at 1221, Until Sat04/14/18 at 2202, Itching, Routine Given 04/12/2018 8:55 AM SOFTWARE MAINTENANCE ENGINEER 25 mg Given 04/11/2018 9:47 PM SOFTWARE MAINTENANCE ENGINEER 25 mg Given 04/10/2018 1:04 PM SOFTWARE MAINTENANCE ENGINEER 25 mg enoxaparin (LOVENOX) injection 40 mg 40 mg, subCUT, EVERY 24 HOURS (DAILY), First dose on Katie 04/10/18 at 1130, Until Discontinued, Routine Given 04/14/2018 9:19 AM SOFTWARE MAINTENANCE ENGINEER 40 mg Abdomen, Left Lower Quadrant Given 04/13/2018 10:21 AM SOFTWARE MAINTENANCE ENGINEER 40 mg A bdomen, Right Lower Quadrant Given 04/12/2018 8:12 AM SOFTWARE MAINTENANCE ENGINEER 40 mg Ab domen, Right Lower Quadrant fenofibrate (LOFIBRA) tablet 160 mg 160 mg, Oral, DAILY, First dose on Katie 04/10/18 at 1030, Until Discontinued, Routine Given 04/14/2018 9:2 4 AM SOFTWARE MAINTENANCE ENGINEER 160 mg Given 04/13/2018 10:21 AM SOFTWARE MAINTENANCE ENGINEER 160 mg Given 04/12/2018 8:08 AM SOFTWARE MAINTENANCE ENGINEER 160 mg gabapentin (NEURONTIN) capsule 100 mg 100 mg, Oral, THREE TIMES DAILY, First dose on Katie 04/10/18 at 1030, Until Discontinued, Routine Given 04/12/2018 6:27 PM SOFTWARE MAINTENANCE ENGINEER 100 mg Given 04/12/2018 2:17 PM SOFTWARE MAINTENANCE ENGINEER 100 mg Given 04/12/2018 8:08 AM SOFTWARE MAINTENANCE ENGINEER 100 mg gabapentin (NEURONTIN) capsule 200 mg 200 mg, Oral, THREE TIMES DAILY, First dose (after last modification) on 04/13/18 at 0900, Until Discontinued, Routine Given 04/14/2018 5:17 PM SOFTWARE MAINTENANCE ENGINEER 200 mg Given 04/14/2018 12:13 PM SOFTWARE MAINTENANCE ENGINEER 200 mg Given 04/14/2018 9:19 AM SOFTWARE MAINTENANCE ENGINEER 200 mg glucagon HCl 1 mg injection 1 mg 1 mg, IM, SEE ADMIN INSTRUCTIONS, Starting on Katie 04/10/18 at 0905, Until 04/14/18 at 2202, Routine HYDROcodone-acetaminophen (NORCO) 5-325 mg per tablet 1 Tablet 1 Tablet, Oral, EVERY 4 HOURS PRN, Starting on [facility] 04/10/18 at 0854, Until Sat04/13/18 at 0816, Pain (See admin instructions), Routine Given 04/12/2018 6:27 PM SOFTWARE MAINTENANCE ENGINEER 1 Tablet Given 04/12/2018 2:18 PM SOFTWARE MAINTENANCE ENGINEER 1 Tablet Given 04/12/2018 8:07 AM SOFTWARE MAINTENANCE ENGINEER 1 Tablet HYDROmorphone (DILAUDID) 2 mg/mL injection 0.5 mg 0.5 mg, IV, EVERY 2 HOURS PRN, Starting on Katie 04/10/18 at 1658, Until 04/13/18 at 0827, Pain (See admin instructions), Routine Given 04/12/2018 4:48 PM SOFTWARE MAINTENANCE ENGINEER 0.5 mg Given 04/12/2018 12:22 PM SOFTWARE MAINTENANCE ENGINEER 0.5 mg Given 04/12/2018 9:13 AM SOFTWARE MAINTENANCE ENGINEER 0.5 mg hyoscyamine (LEVSIN) sublingual tablet 0.125 mg 0.125 mg, Sublingual, EVERY 6 HOURS PRN, Starting on Sat04/10/18 at 0015, Until Sat04/14/18 at 2202, Spasm, Routine Given 04/12/2018 8:23 PM SOFTWARE MAINTENANCE ENGINEER 0.125 mg insulin glargine (LANTUS) injection 15 Units 15 Units, subCUT, TWO TIMES DAILY, First dose on Sat04/10/18 at 1030, Until Discontinued, Routine Given 04/14/2018 9:24 AM SOFTWARE MAINTENANCE ENGINEER 15 Units Abdomen, Left Lower Quadrant Given 04/13/2018 9:53 PM SOFTWARE MAINTENANCE ENGINEER 15 Units Ar m, Right Given 04/13/2018 11:46 AM SOFTWARE MAINTENANCE ENGINEER 7 Units A rm, Left Upper insulin lispro (HumaLOG) variable dose injection subCUT, THREE TIMES DAILY WITH MEALS, First dose on Sat04/10/18 at 0915, Until Discontinued, Routine Given 04/14/2018 12:13 PM SOFTWARE MAINTENANCE ENGINEER 1 Units Arm, Left Upper Given 04/12/2018 12:28 PM SOFTWARE MAINTENANCE ENGINEER 1 Units A rm, Right Given 04/12/2018 8:17 AM SOFTWARE MAINTENANCE ENGINEER 1 Units Ar m, Right insulin lispro (HumaLOG) variable dose injection subCUT, DAILY AT BEDTIME, First dose on Sat04/10/18 at 2100, Until Discontinued, Routine iopamidol (ISOVUE-300) 61 % injection 120 mL 120 mL, IV, INTRA-PROCEDURE ONCE, 1 dose, Starting on Sat04/10/18 at 1116, Until Sat04/10/18 at 1130, Routine Contrast Given 04/10/2018 11:30 AM SOFTWARE MAINTENANCE ENGINEER 120 mL ketorolac (TORADOL) injection 15 mg 15 mg, IV, ONE TIME ONLY, 1 dose, On Sat04/09/18 at 2315, Routine Given 04/09/2018 11:21 PM SOFTWARE MAINTENANCE ENGINEER 15 mg levothyroxine (SYNTHROID) tablet 200 mcg 200 mcg, Oral, DAILY, First dose on Sat04/10/18 at 1030, Until Discontinued, Routine Given 04/14/2018 9:19 AM SOFTWARE MAINTENANCE ENGINEER 200 mcg Given 04/13/2018 10:22 AM SOFTWARE MAINTENANCE ENGINEER 200 mcg Given 04/12/2018 8:08 AM SOFTWARE MAINTENANCE ENGINEER 200 mcg LORazepam (ATIVAN) tablet 1 mg 1 mg, Oral, TWO TIMES DAILY PRN, Starting on Sat04/10/18 at 0015, Until Sat04/14/18 at 2202, Anxiety, Routine Given 04/10/2018 1:13 AM SOFTWARE MAINTENANCE ENGINEER 1 mg morphine 4 mg/mL injection 4 mg 4 mg, IV, ONE TIME ONLY, 1 dose, On Sat04/09/18 at 2145, Routine Given 04/09/2018 9:43 PM SOFTWARE MAINTENANCE ENGINEER 4 mg morphine 4 mg/mL injection 4 mg 4 mg, IV, ONE TIME ONLY, 1 dose, On Sat04/09/18 at 2315, Routine Given 04/09/2018 11:21 PM SOFTWARE MAINTENANCE ENGINEER 4 mg morphine 4 mg/mL injection 4 mg 4 mg, IV, EVERY 3 HOURS PRN, Starting on Sat04/10/18 at 0015, Until Sat04/10/18 at 0953, Pain (See admin instructions), Routine Given 04/10/2018 8:54 AM SOFTWARE MAINTENANCE ENGINEER 4 mg Given 04/10/2018 5:37 AM SOFTWARE MAINTENANCE ENGINEER 4 mg Given 04/10/2018 2:18 AM SOFTWARE MAINTENANCE ENGINEER 4 mg morphine injection 6 mg 6 mg, IV, EVERY 2 HOURS PRN, Starting on Sat04/10/18 at 1000, Until Sat04/10/18 at 1537, Pain (See admin instructions), Routine Given 04/10/2018 2:31 PM SOFTWARE MAINTENANCE ENGINEER 6 mg Given 04/10/2018 11:08 AM SOFTWARE MAINTENANCE ENGINEER 6 mg niacin (NIACOR) tablet 500 mg 500 mg, Oral, TWO TIMES DAILY, First dose on Katie 04/10/18 at 1030, Until Discontinued, Routine Given 04/12/2018 8:08 AM SOFTWARE MAINTENANCE ENGINEER 500 mg Given 04/11/2018 9:44 PM SOFTWARE MAINTENANCE ENGINEER 500 mg Given 04/11/2018 8:24 AM SOFTWARE MAINTENANCE ENGINEER 500 mg niacin (NIASPAN ER) SR 24 hour tablet 500 mg 500 mg, Oral, DAILY WITH BREAKFAST, First dose on Sat04/13/18 at 1430, Until Discontinued, Routine Given 04/14/2018 10:33 AM SOFTWARE MAINTENANCE ENGINEER 500 mg Given 04/13/2018 6:05 PM SOFTWARE MAINTENANCE ENGINEER 500 mg nicotine (NICODERM CQ) 14 mg/24 hr transdermal patch 1 Patch 1 Patch, Transdermal, DAILY, First dose on Katie 04/10/18 at 1100, Until Discontinued, Routine Applied 04/14/2018 9:23 AM SOFTWARE MAINTENANCE ENGINEER 1 Patch Maurisio sergio, Left Applied 04/13/2018 10:24 AM SOFTWARE MAINTENANCE ENGINEER 1 Patch A rm, Right Upper Applied 04/12/2018 8:11 AM SOFTWARE MAINTENANCE ENGINEER 1 Patch Ar m, Left ondansetron (ZOFRAN ODT) tablet 4 mg 4 mg, Oral, EVERY 6 HOURS PRN, Starting on Sat04/10/18 at 0015, Until Sat04/10/18 at 0953, Nausea/Emesis, Routine Given 04/10/2018 1:11 AM SOFTWARE MAINTENANCE ENGINEER 4 mg ondansetron (ZOFRAN) 4 mg/2 mL injection 4 mg 4 mg, IV, ONE TIME ONLY, 1 dose, On Sat04/09/18 at 2145, Routine Given 04/09/2018 9:43 PM SOFTWARE MAINTENANCE ENGINEER 4 mg ondansetron (ZOFRAN) 4 mg/2 mL injection 4 mg 4 mg, IV, EVERY 6 HOURS PRN, Starting on Sat04/10/18 at 0854, Until Sat04/14/18 at 2202, Nausea/Emesis, Routine Given 04/14/2018 12:33 PM SOFTWARE MAINTENANCE ENGINEER 4 mg Given 04/13/2018 7:59 PM SOFTWARE MAINTENANCE ENGINEER 4 mg Given 04/13/2018 9:34 AM SOFTWARE MAINTENANCE ENGINEER 4 mg ONDANSETRON HCL (PF) 4 MG/2 ML INJECTION SOLUTION (CABINET OVERRIDE) 1 dose, Starting on Sat04/09/18 at 2141, Until Sat04/09/18 at 2143, [employer] OMNICELL: cabinet override oxyCODONE-acetaminophen (PERCOCET) 5-325 mg per tablet 1 Tablet 1 Tablet, Oral, EVERY 4 HOURS PRN, Starting on Sat04/13/18 at 0816, Until Sat04/14/18 at 2202, Pain (See admin instructions), Routine Given 04/14/2018 6:37 PM SOFTWARE MAINTENANCE ENGINEER 1 Tablet Given 04/14/2018 2:29 PM SOFTWARE MAINTENANCE ENGINEER 1 Tablet Given 04/14/2018 9:28 AM SOFTWARE MAINTENANCE ENGINEER 1 Tablet pantoprazole (PROTONIX) tablet 40 mg 40 mg, Oral, TWO TIMES DAILY, First dose on Sat04/10/18 at 1030, Until Discontinued, Routine Given 04/14/2018 9:28 AM SOFTWARE MAINTENANCE ENGINEER 40 mg Given 04/13/2018 8:01 PM SOFTWARE MAINTENANCE ENGINEER 40 mg Given 04/13/2018 10:26 AM SOFTWARE MAINTENANCE ENGINEER 40 mg polyethylene glycol (MIRALAX) packet 17 Gram 17 Gram, Oral, TWO TIMES DAILY, First dose on [facility] 04/12/18 at 0900, Until Discontinued, Routine Given 04/14/2018 9:19 AM SOFTWARE MAINTENANCE ENGINEER 17 Grams Given 04/12/2018 8:56 AM SOFTWARE MAINTENANCE ENGINEER 17 Grams potassium CHLORIDE (KLOR-CON) 20 mEq powder 40 mEq 40 mEq, Oral, ONE TIME ONLY, 1 dose, On Sat04/14/18 at 0730, Routine Given 04/14/2018 9:19 AM SOFTWARE MAINTENANCE ENGINEER 40 mEq potassium chloride 40 mEq in sodium chloride 0.9% 250 mL IVPB 40 mEq, IV, ONE TIME ONLY, 1 dose, On Sat04/14/18 at 0900, at 67.5 mL/hr, Administer over 4 Hours, Routine Restarted 04/14/2018 12:34 PM SOFTWARE MAINTENANCE ENGINEER 60 mL/hr Rate Verify 04/14/2018 12:01 PM SOFTWARE MAINTENANCE ENGINEER 60 mL/hr New Bag 04/14/2018 12:00 PM SOFTWARE MAINTENANCE ENGINEER 40 mEq 60 mL/hr prochlorperazine (COMPAZINE) injection 5 mg 5 mg, IV, EVERY 6 HOURS PRN, Starting on Sat04/10/18 at 1724, Until Sat04/14/18 at 2202, Nausea/Emesis, Routine Given 04/14/2018 9:19 AM SOFTWARE MAINTENANCE ENGINEER 5 mg Given 04/13/2018 1:24 PM SOFTWARE MAINTENANCE ENGINEER 5 mg Given 04/12/2018 6:58 PM SOFTWARE MAINTENANCE ENGINEER 5 mg sennosides (SENOKOT) tablet 8.6 mg 8.6 mg, Oral, TWO TIMES DAILY, First dose on [facility] 04/10/18 at 1015, Until Discontinued, Routine Given 04/14/2018 9:19 AM SOFTWARE MAINTENANCE ENGINEER 8.6 mg Given 04/13/2018 8:01 PM SOFTWARE MAINTENANCE ENGINEER 8.6 mg Given 04/13/2018 10:27 AM SOFTWARE MAINTENANCE ENGINEER 8.6 mg sodium chloride 0.9 % 250 mL flush bag 25 mL 25 mL, IV, SEE ADMIN INSTRUCTIONS, Starting on Sat04/11/18 at 1626, Until Sat04/14/18 at 2202, Routine sodium chloride 0.9% bolus solution 1,000 mL 1,000 mL, IV, ONE TIME ONLY, 1 dose, On Sat04/09/18 at 2145, at 2,000 mL/hr, Administer over 30 Minutes, Routine New Bag 04/09/2018 9:43 PM SOFTWARE MAINTENANCE ENGINEER 1,000 mL 2000 mL/hr sodium chloride 0.9% bolus solution 1,000 mL 1,000 mL, IV, ONE TIME ONLY, 1 dose, On [place] 04/10/18 at 0030, at 2,000 mL/hr, Administer over 30 Minutes, Routine New Bag 04/10/2018 1:26 AM SOFTWARE MAINTENANCE ENGINEER 1,000 mL 2000 mL/hr sodium chloride 0.9% bolus solution 10 mL 10 mL, IV, ONE TIME ONLY, 1 dose, On [facility] 04/10/18 at 1130, at 600 mL/hr, Administer over 1 Minutes, Routine New Bag 04/10/2018 11:20 AM SOFTWARE MAINTENANCE ENGINEER 10 mL 600 mL/hr sodium chloride flush injection 5 mL 5 mL, IV, EVERY 12 HOURS (BlD), First dose on Sat04/11/18 at 2100, Until Discontinued, Routine Given 04/14/2018 9:21 AM SOFTWARE MAINTENANCE ENGINEER 5 mL Given 04/13/2018 9:26 AM SOFTWARE MAINTENANCE ENGINEER 5 mL sodium chloride flush injection 5 mL 5 mL, IV, SEE ADMIN INSTRUCTIONS, Starting on Sat04/11/18 at 1626, Until Sat04/14/18 at 2202, Routine Given 04/11/2018 10:30 PM SOFTWARE MAINTENANCE ENGINEER 5 mL Given 04/11/2018 5:39 PM SOFTWARE MAINTENANCE ENGINEER 5 mL spironolactone (ALDACTONE) tablet 25 mg 25 mg, Oral, DAILY, First dose on [place] 04/10/18 at 1030, Until Discontinued, Routine Given 04/10/2018 11:46 AM SOFTWARE MAINTENANCE ENGINEER 25 mg sucralfate (CARAFATE) 100 mg/mL suspension 1 Gram 1 Gram, Oral, FOUR TIMES DAILY BEFORE MEALS AND AT BEDTIME, First dose on [facility] 04/10/18 at 1130, Until Discontinued, Routine Given 04/14/2018 5:17 PM SOFTWARE MAINTENANCE ENGINEER 1 Gram Given 04/14/2018 10:33 AM SOFTWARE MAINTENANCE ENGINEER 1 Gram Given 04/14/2018 5:06 AM SOFTWARE MAINTENANCE ENGINEER 1 Gram traZODone (DESYREL) tablet 100 mg 100 mg, Oral, DAILY AT BEDTIME, First dose on [facility] 04/10/18 at 2100, Until Discontinued, Routine Given 04/13/2018 8:01 PM SOFTWARE MAINTENANCE ENGINEER 100 mg Given 04/12/2018 11:42 PM SOFTWARE MAINTENANCE ENGINEER 100 mg Given 04/11/2018 8:39 PM SOFTWARE MAINTENANCE ENGINEER 100 mg documented in this encounter Active and Recently Administered Medications Times are shown in SOFTWARE MAINTENANCE ENGINEER. Scheduled Medication Order 04/12/2018 04/13/2018 04/14/2018 calcium [...] Provider: Thiago Carpio RN)1717 (Given - Provider: hTiago Carpio RN) glucagon HCl 1 mg injection [...] Jeff Tariq RN)1154 (Given - Provider: Jeff Tariq RN)1543 (Given - Provider: Jeff Tariq RN)2149 (Given - Provider: Wen Moss RN) 0506 (Given - Provider: Wen [...] Dickson Seth RN)1416 (Rate Change - Provider: Dickson Seth RN)1417 (New Bag - Provider: Dickson [...] 1324 (Given - Provider: Jeff Tariq, CLAU) 0983 (Given - Provider: Thiago Carpio RN) documented in this encounter Care Teams Snack Bar Attendant Relationship Specialty Start Date End Date Guerrero Middleton PA-C PCP - General Physician Quality Management Nurse 02/13/18 documented as of this encounter
--- OUTSIDE RECORDS SUMMARY | 2024-05-03 21:58 | XMS_ITS | Encounter Summary ---
Author Organization [facility] Address [address] [place] [address] Care Team Providers Care Burrito Maker Name Role Phone Guerrero Middleton PA-C Primary Care Provide r Reason for Visit * Reason Comments Thyroid Problem Encounter Details Date Type Department Care Team (Late st Contact Info) Description 04/25/2018 9:30 AM MANUFACTURING ENGINEER SUPERVISOR Office Visit [facility] Endocrinology [address] [place] [address] Blake Rudd MD NO ADDRESS [...] Comments Blood Pressure 133/89 04/25/2018 9:16 AM MANUFACTURING ENGINEER SUPERVISOR Pulse 113 04/25/2018 9:16 AM MANUFACTURING ENGINEER SUPERVISOR Temperature - - Respiratory Rate - - Oxygen Saturation - - Inhaled Oxygen Concentration - - Weight 89.8 kg (198 lb) 04/25/2018 9:16 AM MANUFACTURING ENGINEER SUPERVISOR Height 162.6 cm (5' 4 ) 04/25/2018 9:16 AM MANUFACTURING ENGINEER SUPERVISOR Body Mass Index 33.99 04/25/2018 9:16 AM MANUFACTURING ENGINEER SUPERVISOR documented in this encounter Progress Notes * Blake Rudd MD - 04/25/2018 9:30 AM CST [facility] Endocrinology PCP: Guerrero Middleton PA-C NAME: [...] units dinner Also with sliding scale. ??? [id number]-E-FA-Fish Oil [phone] sq-zr-uon-mcg Capsule Take 2 Caplets by mouth 2 [...] Years of education: N/A Occupational History ??? [employer] Social History Main Topics ??? Smoking [...] HYSTERECTOMY partial due to endometriosis 2006 ??? [place] ESOPHAGOGASTRODUODENOSCOPY TRANSORAL DIAGNOSTIC N/A 03/08/2018 [...] with any questions. Blake Rudd MD PhD FACTURING ENGINEER SUPERVISOR documented in this encounter Plan of Treatment Upcoming Encounters Date Type Department Care Team (Late st Contact Info) Description 09/14/2024 3:00 PM CDT Office Visit [facility] Heart and Vascular - [facility] [address] [place] [address] Marlys Mayer MD [address] [place] [address] Scheduled Orders Name Type Priority Associated Diagnoses [...] pancreatitis documented in this encounter Care Teams Burrito Maker Relationship Specialty Start Date End Date Guerrero Middleton PA-C PCP - General Physician Honest John Rocket Crew Member 02/13/18 documented as of this encounter
--- OUTSIDE RECORDS SUMMARY | 2024-05-03 21:58 | XMS_ITS | Encounter Summary ---
Author Organization [facility] Address [address] [place] [address] Care Team Providers Care Maintenance Shop Laborer Name Role Phone Guerrero Middleton PA-C Primary Care Provide r Reason for Visit * Reason Onset Date Comments Needs Appointment 05/22/2018 Hospital f/u n eeded Encounter Details Date Type Department Care Team (Late st Contact Info) Description 05/22/2018 Telephone [facility] Heart and Vascular At [facility] [address] [place] [address] Marlys Mayer MD [address] [place] [address] [address] [place] [address] Needs Appointment (Hospital f/u needed) [...] Tita Jessica RMA - 05/22/2018 4:45 PM CLOTH SPREADER SCREEN PRINTING Appointment scheduled. H SPREADER SCREEN PRINTING * Telephone Encounter - Jacklyn Reynolds - 05/22/2018 3:02 PM CST Call from patient requesting an appt within 2-3 days as per her discharge instructions from the hospital. She was admitted w/pancreatitis, triglycerides were high. Patient taking it easy since discharge. Please advise her at /pr H SPREADER SCREEN PRINTING documented in this encounter Plan of Treatment Upcoming Encounters Date Type Department Care Team (Late st Contact Info) Description 09/14/2024 3:00 PM CDT Office Visit [facility] Heart and Vascular - [place] [address] [place] [address] Marlys Mayer MD [address] [place], [place] [id number] documented as of this encounter Visit Diagnoses Not on filedocumented in this encounter Care Teams Maintenance Shop Laborer Relationship Specialty Start Date End Date Guerrero Middleton PA-C PCP - General Physician Human Resource Advisor 02/13/18 documented as of this encounter
--- OUTSIDE RECORDS SUMMARY | 2024-05-03 21:58 | XMS_ITS | Encounter Summary ---
Author Organization [facility] Address [address] [place] [address] Care Team Providers Care Automation Manager Name Role Phone Guerrero Middleton PA-C Primary Care Provide r Reason for Visit * Reason Onset Date Comments Results 05/14/2018 bmp, lipid panel Encounter Details Date Type Department Care Team (Late Contact Info) Description 05/14/2018 Telephone [facility] Heart and Vascular [place] [address] [place] [address] Marlys Mayer MD [address] [place] [address] Results (bmp, lipid panel) Social History Tobacco [...] Alexandra Kahn RN - 05/14/2018 4:57 PM FISHER SCALLOP Routed and texted lipid panel and bmp results to Dr. Mayer. Dr. Mayer texted back that she is aware of high triglycerides ER SCALLOP documented in this encounter Plan of Treatment Upcoming Encounters Date Type Department Care Team (Late st Contact Info) Description 09/14/2024 3:00 PM CDT Office Visit [facility] Heart and Vascular - [place] [address] [place] [address] Marlys Mayer MD [address] [place] [address] documented as of this encounter Visit Diagnoses Not on filedocumented in this encounter Care Teams Automation Manager Relationship Specialty Start Date End Date Guerrero Middleton PA-C PCP - General Physician Wine Merchant 02/13/18 documented as of this encounter
--- OUTSIDE RECORDS SUMMARY | 2024-05-03 21:58 | XMS_ITS | Encounter Summary ---
Author Organization [facility] Address [address] [place] [address] Care Team Providers Care Lawn Care Worker Name Role Phone Guerrero Middleton PA-C Primary Care Provide r Reason for Referral * Eval and Treat (Routine) - Closed Specialty Diagnoses / Procedures Referred By Contac t Referred To Contact Nutrition Diagnoses Hypertriglyceridemia Type 2 diabetes mellitus without complication, with long-term current use of insulin HENDRIX (dyspnea on exertion) Marlys Mayer MD [address] [place] [address] Tyra Paz, RD [address] [place] [address] Referral ID Status Reason Start Date Expiration Date V isits Requested Visits Authorized [id number] Closed CRS To Schedule (STL) 05/14/2018 05/15/2019 1 1 ODE BUILDER Reason for Visit * Reason Comments Follow Up Hyperlipidemia Encounter Details Date Type Department Care Team (Latest Contact Info) Description 05/14/2018 11:30 AM CATHODE BUILDER Office Visit [facility] Heart and Vascular At [facility] [address] [place] [address] Marlys Mayer MD [address] [place] [address] Hypertriglyceridemia (Primary Dx); Type 2 [...] Comments Blood Pressure 108/62 05/14/2018 11:45 AM CATHODE BUILDER Pulse 99 05/14/2018 11:45 AM CATHODE BUILDER Temperature - - Respiratory Rate - - Oxygen Saturation 98% 05/14/2018 11:45 AM CATHODE BUILDER Inhaled Oxygen Concentration - - Weight 90.3 kg (199 lb) 05/14/2018 11:45 AM CATHODE BUILDER Height 162.6 cm (5' 4 ) 05/14/2018 11:45 AM CATHODE BUILDER Body Mass Index 34.16 05/14/2018 11:45 AM CATHODE BUILDER documented in this encounter Progress Notes * Marlys Mayer MD - 05/14/2018 12:11 PM CST [facility] HEART AND VASCULAR Follow-up Visit Casandra Jones, a 42 y.o. female returns for follow-up of these problems: ICD-10-CM ICD-9-CM 1. Hypertriglyceridemia E78.1 272.1 2. Type 2 diabetes mellitus without complication, with long-term current use of insulin E11.9 250.00 Z79.4 V58.67 3. HENDRIX (dyspnea on exertion) R06.09 786.09 Since last visit 04/02/2018: Hospitalizations: Hospitalized at [facility] 04/09 to 04/14/19 for acute pancreatitis. She underwent plasmapharesis with improvement in symptoms and triglycerides in 300s at time of discharge. She reportsthat she has been following a low fat diet ( <10 gm fat). She saw resource room teacher in hospital and BS have been better [...] units dinner Also with sliding scale. ??? [id number]-M40-E-FA-Fish Oil [phone] pj-ul-roj-mcg Capsule Take 2 Caplets by mouth 2 [...] at [facility] GI LAB Social History Social History ??? Marital status: Spouse name: N/A ??? Number of children: N/A ??? Years of education: N/A Occupational History ??? [employer] Social History Main Topics ??? Smoking [...] for new/worsening cardiac symptoms or abdominal pain ODE BUILDER * Tita Jessica RMA - 05/14/2018 11:55 AM CST Casandra Jones states that she needs a letter stating what her diagnosis is, how it affects her, andhow it prevents you from working. ODE BUILDER * Tita Jessica RMA - 05/14/2018 11:44 AM CST Follow Up and Hyperlipidemia Casandra is here for Lipid Clinic office visit. Last Lipid/APO Testin05/12/2018 Casandra denies any cardiac complaints at this time. ODE BUILDER documented in this encounter Plan of Treatment Upcoming Encounters Date Type Department Care Team (Late st Contact Info) Description 09/14/2024 3:00 PM CDT Office Visit [facility] Heart and Vascular - [facility] [address] [place] [address] Marlys Mayer MD [address] [place] [address] Scheduled Referrals Name Type Priority Associated Diagnoses Orde r Schedule AMB REFERRAL TO PULP PLANT SUPERVISOR Outpatient Referral Routine Hypertriglyceridemia Type 2 diabetes mellitus without complication, with long-term current use of insulin HENDRIX (dyspnea on exertion) Ordered: 05/14/2018 documented as of this encounter Results * (ABNORMAL) BASIC METABOLIC PANEL (05/14/2018 12:48 PM CATHODE BUILDER) SODIUM 131(L) 136 - 145 mmol/L 05/14/2018 2:10 PM CATHODE BUILDER [facility] - [facility] POTASSIUM 4.5 3.5 - 5.0 mmol/L 05/14/2018 2:10 PM [facility]DE [facility]ILDER [facility] CHLORIDE 90(L) 98 - 107 mmol/L 05/14/2018 2:10 PM CATHODE BUILDER [facility] - [facility] CO2 24 22 - 29 mmol/L 05/14/2018 2:10 PM CATHODE BUILDER [facility] LABORATORY SERVICES - [facility] CALCIUM 9.8 8.6 - 10.2 mg/dL 05/14/2018 2:10 PM CATHODE BUILDER [facility]OR[facility]ORY [facility] - . KIMO BUN 9 6 - 20 mg/dL 05/14/2018 2:10 PM [facility] CREATININE 0.44(L) 0.51 - 0.95 mg/dL 05/14/2018 2:10 PM [facility] GLUCOSE 160(H) 74 - 99 mg/dL 05/14/2018 2:10 PM [facility] GFR >60 >=60 mL/min/1.7 3 sq meter 05/14/2018 2:10 PM [facility] [employer] [facility] Comment: eGFR has not been validated [...] mL/min/1.7 3 sq meter 05/14/2018 2:10 PM [facility] [employer] [facility] ANION GAP 17(H) 8 - 16 mmol/L 05/14/2018 2:10 PM [facility] [employer] [facility] Blood Venipuncture / Unknown 05/14/2018 12:48 PM CATHODE BUILDER 05/14/2018 12:58 PM CATHODE BUILDER Marlys Mayer MD CHEMISTRY ORDERABLES [facility] [employer] [facility] [id number] [address] [facility] [place] [address] * (ABNORMAL) LIPID PANEL (05/14/2018 12:48 PM CATHODE BUILDER) CHOLESTEROL 623(H) <200 mg/dL 05/14/2018 2:41 PM [facility] [employer] [facility] TRIGLYCERIDE 3,899(H) <150 mg/dL 05/14/2018 2:41 PM [facility] HDL 40 - 59 mg/dL 05/14/2018 2:41 PM [facility] Comment: Measured HDL is not accurate when the Triglyceride value exceeds 1200. LDL CALCULATED <100 mg/dL 05/14/2018 2:41 PM [facility] Comment:Calculated LDL is no t accurate when the Triglyceride value exceeds 400. NON-HDL CHOLESTEROL <130 mg/dL 05/14/2018 2:41 PM [facility] Comment:Non HDL Cholesterol cannot be calculated when the HDL value is suppressed. Blood Venipuncture / Unknown 05/14/2018 12:48 PM CATHODE BUILDER 05/14/2018 12:58 PM [facility] - 05/14/2018 2:41 PM CATHODE BUILDER TOTAL CHOLESTEROL ??mg/dL ??Desirable <200 ??Borderline [...] Panels (NCEP/AMA) Marlys Mayer MD CHEMISTRY ORDERABLES [facility] [id number] [address] [facility] [place] [address] documented in this encounter Visit Diagnoses Diagnosis Hypertriglyceridemia- Primary Pure hyperglyceridemia Type 2 diabetes mellitus without complication, with long-term current use of insulin HENDRIX (dyspnea on exertion) Other dyspnea and respiratory abnormality documented in this encounter Care Teams Lawn Care Worker Relationship Specialty Start Date End Date Guerrero Middleton PA-C PCP - General Physician Broadcast Maintenance Engineer 02/13/18 documented as of this encounter
--- OUTSIDE RECORDS SUMMARY | 2024-05-03 21:58 | XMS_ITS | Encounter Summary ---
Author Organization [facility] Address [address] [place] [address] Care Team Providers Care Road Machine Operator Name Role Phone Guerrero Middleton PA-C Primary Care Provide r Encounter Details Date Type Department Care Team (Latest Contact Info) Description 05/14/2018 12:45 PM DOCUMENT ANALYST - 05/14/2018 11:59 PM DOCUMENT ANALYST Hospital Encounter [facility] Laboratory Services [address] [place] [phone] Marlys Mayer MD [address] [place] [address] Discharge Disposition: Home or Self Care Social [...] units dinner Also with sliding scale. 06/02/2018 [id number]-E-F A-Fish Oil [phone] ff-ah-gwv-mcg Capsule Take 2 Caplets by mouth 2 [...] At [place] [facility] - [facility] [address] [place] [address] Marlys Mayer MD [address] [place] [address] documented as of this encounter Procedures Procedure Name Priority Date/Time Associated Diagnosis Comments LIPID PANEL Routine 05/14/2018 12:48 PM DOCUMENT ANALYST Hypertriglyceridemi a Type 2 diabetes mellitus without complication, with long-term current use of insulin BASIC METABOLIC PANEL Routine 05/14/2018 12:48 PM DOCUMENT ANALYST Hypertriglyceridemi a Type 2 diabetes mellitus without complication, with long-term current use of insulin documented in this encounter Results * (ABNORMAL) BASIC METABOLIC PANEL (05/14/2018 12:48 PM DOCUMENT ANALYST) SODIUM 131(L) 136 - 145 mmol/L 05/14/2018 2:10 PM [facility] [employer] LAB[facility]ATORY SERVICES - [facility] POTASSIUM 4.5 3.5 - 5.0 mmol/L 05/14/2018 2:10 PM [facility] [employer] [facility] - [facility] CHLORIDE 90(L) 98 - 107 mmol/L 05/14/2018 2:10 PM [facility] [employer] [facility]ORY SERVICES - [facility] CO2 24 22 - 29 mmol/L 05/14/2018 2:10 PM [facility] [employer] [facility] - [facility] CALCIUM 9.8 8.6 - 10.2 mg/dL 05/14/2018 2:10 PM [facility] [employer] [facility] BUN 9 6 - 20 mg/dL 05/14/2018 2:10 PM [facility] [employer] LABORATORY SERVICES [facility] CREATININE 0.44(L) 0.51 - 0.95 mg/dL 05/14/2018 2:10 PM [facility] [employer] LABORATORY SERVICES [facility] GLUCOSE 160(H) 74 - 99 mg/dL 05/14/2018 2:10 PM [facility] [employer] LABORATORY SERVICES [facility] GFR >60 >=60 mL/min/1.7 3 sq meter 05/14/2018 2:10 PM [facility] [employer] [facility] Comment: eGFR has not been validated for [...] mL/min/1.7 3 sq meter 05/14/2018 2:10 PM [facility] [employer] [facility] ANION GAP 17(H) 8 - 16 mmol/L 05/14/2018 2:10 PM [facility] [employer] [facility] Blood Venipuncture / Unknown 05/14/2018 12:48 PM DOCUMENT ANALYST 05/14/2018 12:58 PM DOCUMENT ANALYST Marlys Mayer MD CHEMISTRY ORDERABLES [facility] [employer] [facility]# [id number] [address] [place] [address] * (ABNORMAL) LIPID PANEL (05/14/2018 12:48 PM DOCUMENT ANALYST) Pathologist [facility] CHOLESTEROL 623(H) <200 mg/dL 05/14/2018 2:41 PM [facility] TRIGLYCERIDE 3,899(H) <150 mg/dL 05/14/2018 2:41 PM [facility] HDL 40 - 59 mg/dL 05/14/2018 2:41 PM [facility] Comment: Measured HDL is not accurate when the Triglyceride value exceeds 1200. LDL CALCULATED <100 mg/dL 05/14/2018 2:41 PM [facility] Comment:Calculated LDL is no t accurate when the Triglyceride value exceeds 400. NON-HDL CHOLESTEROL <130 mg/dL 05/14/2018 2:41 PM [facility] Comment:Non HDL Cholesterol cannot be calculated when the HDL value is suppressed. Blood Venipuncture / Unknown 05/14/2018 12:48 PM DOCUMENT ANALYST 05/14/2018 12:58 PM DOCUMENT ANALYST Narrative [facility] - 05/14/2018 2:41 PM DOCUMENT ANALYST TOTAL CHOLESTEROL ??mg/dL ??Desirable <200 ??Borderline high [...] Panels (NCEP/AMA) Marlys Mayer MD CHEMISTRY ORDERABLES [facility] [employer] [facility] CLIA# [id number] [address] [address] [address] documented in this encounter Visit Diagnoses Diagnosis Hypertriglyceridemia Pure hyperglyceridemia Type 2 diabetes mellitus without complication, with long-term current use of insulin documented in this encounter Care Teams Road Machine Operator Relationship Specialty Start Date End Date Guerrero Middleton PA-C PCP - General Physician Mobile Patrol Officer 02/13/18 documented as of this encounter
--- OUTSIDE RECORDS SUMMARY | 2024-05-03 21:58 | XMS_ITS | Encounter Summary ---
Author Organization [facility] Address [address] [place] [address] Care Team Providers Care Loom Control Chain Builder Name Role Phone Guerrero Middleton PA-C [...] bowman Referred To Contact Critical Care Medicine [facility] Transitional Care Unit [address] [place] [address] Referral ID Status Reason Start Date Expiration Date Visits Re quested Visits Authorized [id number] 1 1 Encounter Details Date Type Department Care Team (Latest Contact Info) Description 05/16/2018 4:09 PM SHEARER SCREEN MEASURER AND TRIMMER - 05/21/2018 6:18 PM SHEARER SCREEN MEASURER AND TRIMMER Hospital Encounter [facility] Medicine [address] [place] [address] Eva Foreman MD NO ADDRESS ON FILE Debbie vAila MD [address] [facility] [address] [address] Loki Vences MD [address] [place] [address] Manan Dumont MD [address] [place] [address] Karen Thomas MD NO ADDRESS [...] Comments Blood Pressure 135/92 05/21/2018 5:54 PM SHEARER SCREEN MEASURER AND TRIMMER Pulse 87 05/21/2018 5:54 PM SHEARER SCREEN MEASURER AND TRIMMER Temperature 37.1 ??C (98.7 ??F) 05/21/2018 5:54 PM CS T Respiratory Rate 18 05/21/2018 5:54 PM SHEARER SCREEN MEASURER AND TRIMMER Oxygen Saturation 97% 05/21/2018 5:54 PM SHEARER SCREEN MEASURER AND TRIMMER Inhaled Oxygen Concentration - - Weight 85.7 kg (189 lb) 05/19/2018 8:26 PM SHEARER SCREEN MEASURER AND TRIMMER Height 165.1 cm (5' 5 ) 05/19/2018 8:26 PM SHEARER SCREEN MEASURER AND TRIMMER Body Mass Index 31.45 05/19/2018 8:26 PM SHEARER SCREEN MEASURER AND TRIMMER documented in this encounter Discharge Summaries * Wendie Desai MD - 05/21/2018 9:30 PM CST [facility] Adult Discharge Summary Casandra Doss 42 y.o. female 1975 CSN: [id number] Date of Admission: 05/16/2018 Date of Discharge: [...] by mouth 2 times daily. Refills: 0 Cceya7-KjkQ6-E27-E-FA-Fish Oil [id number] av-fj-ati-mcg Capsule Take 2 Caplets by mouth 2 [...] Your Medications These medications were sent to [place] [address] [facility] [address] Hours: Saturday-Saturday: 8 a.m. - 8 p.m., [...] Signed: Wendie Desai MD 05/21/2018, 9:31 PM RER SCREEN MEASURER AND TRIMMER Associated attestation - Karen Thomas MD - 05/21/2018 10:38 PM SHEARER SCREEN MEASURER AND TRIMMER [facility] Adult Hospitalist Attending Note I reviewed the [...] lab and test results. Karen Thomas MD [facility] Hospitalist documented in this encounter Discharge Instructions * Discharge Instructions* Wendie Desai MD - 05/21/2018 4:13 PM SHEARER SCREEN MEASURER AND TRIMMER Your discharging physician is Karen Thomas MD and may be reached at [phone] for any questions or concerns until you [...] people smoke in your home. Please call [phone], our pulmonary rehabilitation department, to learn more about options to reduce your risks. ACTIVITY Your activity level is: no smoking. You may return to work/school call if not improving. DIET Your diet is: low fat, diabetic WOUND CARE For your wound/incision: keep wound clean and dry. RER SCREEN MEASURER AND TRIMMER documented in this encounter Medications at Time [...] units dinner Also with sliding scale. 06/02/2018 Xibvn4-TcgI1-N44-E-F A-Fish Oil [id number] po-be-efq-mcg Capsule Take 2 Caplets by mouth 2 [...] concerns or questions. Alize Arteaga MD, PhD director of retail operations, therapeutic apheresis [phone] RER SCREEN MEASURER AND TRIMMER * Wendie Desai MD - 05/20/2018 8:00 AM CST [facility] Adult Progress Note Admit Date: 05/16/2018 Date [...] decreasing dilaudid if running soft. ?? 2. Hypothyroidism:?FEATHER DUSTER WINDER levothyroxine 200 mcg daily TSH 4.04. 3. Anxiety/Depression: ??FEATHER DUSTER WINDER celexa, trazodone. 4. GERD:?FEATHER DUSTER WINDER PPI. 5. PCOS:?Holding metformin and aldactone ?? [...] lab and test results. Wendie Desai MD RER SCREEN MEASURER AND TRIMMER Associated attestation - Karen Thomas MD - 05/20/2018 9:38 PM SHEARER SCREEN MEASURER AND TRIMMER [facility] Adult Hospitalist Attending Note I reviewed the [...] lab and test results. Karen Thomas MD [facility] Hospitalist * Vignesh Badillo MD - 05/19/2018 6:40 PM CST Followed TG 553. Will need a plasmapheresis tomorrow as per hand off. Nothing to do at present. RER SCREEN MEASURER AND TRIMMER * Jayro Fung GN - 05/19/2018 5:48 [...] Encounters: 05/19/18 16 04/14/18 18 03/09/18 16 RER SCREEN MEASURER AND TRIMMER * Sari Sanford - 05/19/2018 4:14 PM CST Plasma exchange #3 completed using the R IJ catheter for draw and return. 5% Albumin used as replacement fluid for a 1 volume exchange. Patient tolerated procedure well and procedure completed without issues. RER SCREEN MEASURER AND TRIMMER * Wendie Desai MD - 05/19/2018 8:18 AM CST [facility] Adult Progress Note Admit Date: 05/16/2018 Date [...] after TG are under control ?? 2. Hypothyroidism:?FEATHER DUSTER WINDER levothyroxine 200 mcg daily TSH 4.04. 3. Anxiety/Depression: ??FEATHER DUSTER WINDER celexa, trazodone. 4. GERD:?FEATHER DUSTER WINDER PPI. 5. PCOS:?Holding metformin and aldactone ?? Chronic/Stable/Resolved Problems: Hypothyroidism Depression with anxiety Tobacco use Type 2 diabetes mellitus without complication, with long-term current use of insulin Hyponatremia GERD (gastroesophageal reflux disease) History of plasmapheresis Quality/Safety/Core Measures/Disposition Planning: DVT Prophylaxis - Enoxaparin PT POC Therapy Plan of Care: PT Eval Only; No further needs (05/18/18 2288) OT POC Activity Order: Present Activity: in bed (05/19/18 4925) Pettit catheter:absent Current Code Status -Full Code [...] lab and test results. Wendie Desai MD RER SCREEN MEASURER AND TRIMMER Associated attestation - Manan Dumont MD - 05/19/2018 4:56 PM SHEARER SCREEN MEASURER AND TRIMMER [facility] Adult Hospitalist Attending Note I reviewed the [...] fish oil omega 3 fatty acids 2. Hypothyroidism:?FEATHER DUSTER WINDER levothyroxine 200 mcg daily TSH 4.04. 3. Anxiety/Depression: ??FEATHER DUSTER WINDER celexa, trazodone. 4. GERD:?FEATHER DUSTER WINDER PPI. More than 15 minutes were spent in the care of this patient today; more than 50% was spent in discussion of expected course of disease, discussion of prognosis, discharge planning, coordination of care and discussion of lab and test results. Manan Dumont MD [facility] Hospitalist * Blake Garcia, RN - 05/19/2018 7:21 AM CST Pt in bed resting. Complaining of pain almost every 4 hrs. Able to voice wants and needs. VSS. Willcontinue to monitor. RER SCREEN MEASURER AND TRIMMER * Crow Damico MD - 05/18/2018 6:00 PM CST Brief Cross-Coverage Note Repeat triglyceride level 524. Per sign off, will not start insulin drip at this time. Crow Damico MD PGY-1 Pager: RER SCREEN MEASURER AND TRIMMER * Nina Barber RN - 05/18/2018 5:14 PM CST Plasma exchange this morning, no issues. Abdominal pain and nausea through day, some relief with prn's. No other changes RER SCREEN MEASURER AND TRIMMER * Wendie Desai MD - 05/18/2018 1:38 PM CST [facility] Adult Progress Note Admit Date: 05/16/2018 Date [...] after TG are under control ?? 2. Hypothyroidism:?FEATHER DUSTER WINDER levothyroxine 200 mcg daily TSH 4.04. 3. Anxiety/Depression: ??FEATHER DUSTER WINDER celexa, trazodone. 4. GERD:?FEATHER DUSTER WINDER PPI. 5. PCOS:?Holding metformin and aldactone ?? [...] lab and test results. Wendie Desai MD RER SCREEN MEASURER AND TRIMMER Associated attestation - Manan Dumont MD - 05/18/2018 1:54 PM SHEARER SCREEN MEASURER AND TRIMMER [facility] Adult Hospitalist Attending Note I reviewed the [...] hours as needed for breakthrough pain. 2. Hypothyroidism:?FEATHER DUSTER WINDER levothyroxine 200 mcg daily TSH 4.04. 3. Anxiety/Depression: ??FEATHER DUSTER WINDER celexa, trazodone. 4. GERD:?FEATHER DUSTER WINDER PPI. More than 20 were spent in the care of this patient today; more than 50% was spent in discussion ofexpected course of disease, discussion of prognosis, discharge planning, coordination of care and discussion of lab and test results. Manan Dumont MD [facility] Hospitalist * Rosales Tapia RN - 05/18/2018 12:14 PM CST Plasma exchange number 2 using the right IJ catheter for access and return with 5 % albumin as replacement fluids for a 1.0 volume exchange. 2g of calcium given intra procedure. Procedure completed without issues. RER SCREEN MEASURER AND TRIMMER * Nina Barber RN - 05/17/2018 6:40 PM CST Nausea and abdominal pain through day, with some relief from prn's. Pt hypoglycemic 56 at 1030, insulin drip stopped. Trialysis cath placed bedside and plasma exchange done. Triglycerides 939 after RER SCREEN MEASURER AND TRIMMER * Abel Sotelo MD - 05/17/2018 5:55 PM CST Brief cross cover note: Received call from patient's RN notifying that plasmapheresis is finished. Follow-up triglyceride at this time is 939. Per day team signout, will hold insulin drip as triglycerides are under 1000. Wewill continue D5 half NS at this time. RER SCREEN MEASURER AND TRIMMER * Rosales Tapia RN - 05/17/2018 4:42 PM CST Plasma exchange number 1 using the right IJ catheter for access and return with 5% albumin as replacement fluids for 1.0 volume exchange. Procedure completed without issues. RER SCREEN MEASURER AND TRIMMER * Manan Dumont MD - 05/17/2018 1:23 PM CST [facility] Adult Progress Note Admit Date: 05/16/2018 Date [...] as needed for breakthrough pain. 2. Hypothyroidism: FEATHER DUSTER WINDER levothyroxine 200 mcg daily TSH 4.04. 3. Anxiety/Depression: FEATHER DUSTER WINDER celexa, trazodone. 4. GERD: FEATHER DUSTER WINDER PPI. 5. PCOS: Holding metformin and aldactone [...] lab and test results. Manan Dumont MD RER SCREEN MEASURER AND TRIMMER * Manan Dumont MD - 05/17/2018 1:09 PM CST Ok to use central venous catheter. RER SCREEN MEASURER AND TRIMMER * Lalita Damico MD - 05/17/2018 3:32 AM CST [facility] Called for: Blood pressure [...] resident team provided. Please call the on-call chemist intern at [phone]. If there is no response, please call the senior resident at [phone]. Please call back any time if I can be of further assistance. Lalita Damico MD [phone] RER SCREEN MEASURER AND TRIMMER * Ligia Treadwell RN - 05/17/2018 3:00 AM CST Contacted pharmacy regarding pt's missing insulin gtt. Medication to be sent. RER SCREEN MEASURER AND TRIMMER * Ligia Treadwell RN - 05/17/2018 2:30 [...] patient No Disposition of belongings/valuables: in room RER SCREEN MEASURER AND TRIMMER * Lalita Damico MD - 05/16/2018 10:23 PM CST [facility] Call Called for: pt requesting [...] assistance. Lalita Damico MD Submit an eTicket RER SCREEN MEASURER AND TRIMMER * Carolyn Boyd NP - 05/16/2018 8:32 PM CST [facility] [place] Cover Call Called for: RN informing Physician [...] assistance. Carolyn Boyd NP Submit an eTicket RER SCREEN MEASURER AND TRIMMER documented in this encounter H&P Notes * Hugo Randall MD - 05/17/2018 7:38 AM CST [facility] Trauma and General Surgery History and Physical/Consultation Casandra Doss 1975 CSN: [id number] 05/17/2018 Subjective: History of Present Illness: 42 [...] HYSTERECTOMY partial due to endometriosis 2006 ??? ID ESOPHAGOGASTRODUODENOSCOPY TRANSORAL DIAGNOSTIC N/A 03/08/2018 ESOPHAGOGASTRODUODENOSCOPY performed by Ceasar Vega MD at [facility] GI LAB Prescriptions Prior to Admission Medication [...] by mouth. 05/15/2018 at Unknown time ??? Oaala9-XqmW8-T93-E-FA-Fish Oil [id number] id-fa-cea-mcg Capsule Take 2 Caplets by mouth 2 [...] Dr. Homero Randall MD Surgery Resident P: [phone] 05/17/18 7:38 AM RER SCREEN MEASURER AND TRIMMER Associated attestation - Malcom Valentin MD - 05/17/2018 2:28 PM SHEARER SCREEN MEASURER AND TRIMMER I agree with below as noted by the Resident. In addition I note: 42 yo male with hypertriglyceridemia needing apharesis. trialysis cath placed today by me. Catheter in place on CXR Call with questions or concerns. I certify that I have independently seen and examined this patient reviewed the labs, xrays, and evaluated the software security consultant's notes and agree with the above assessment.?? I have spent no less than 35 minutes involved in the care and evaluation of the patient. Malcom Valentin MD, 05/17/2018 2:26 PM Pager # [phone] *If unable to reach me, please call the stitch bonding machine operator and ask for the On-Call Trauma Surgeon* * Los Simon, DO - 05/16/2018 9:10 PM CST [facility] Internal Medicine Teaching Service History & Physical Judy R Page, DO 05/16/2018 9:10 PM Patient Name: Casandra Doss Admit Date: 05/16/2018 PCP: Guerrero Middleton PA-C Subjective: CC: Abdominal pain HPI: Casandra Doss is a 42 [...] HYSTERECTOMY partial due to endometriosis 2006 ??? ID ESOPHAGOGASTRODUODENOSCOPY TRANSORAL DIAGNOSTIC N/A 03/08/2018 ESOPHAGOGASTRODUODENOSCOPY performed by Ceasar Vega MD at [facility] GI LAB Medications: Medication List CONTINUE taking [...] by mouth 2 times daily. Refills: 0 Bjujw7-NpaJ0-J26-E-FA-Fish Oil [id number] ba-oq-hqq-mcg Capsule Take 2 Caplets by mouth 2 [...] Mayer who is aware of patient's admission. -FEATHER DUSTER WINDER Crestor 20 mg, Fenofibrate 160 mg daily, Niacin 500 mg BID Hyponatremia: Suspect pseudohyponatremia from hyperosmolar state with hyperTG -Obtain serum osmolality DM-2, uncontrolled: Last HbA1c 8.7% 02/2018. -Obtain updated HbA1c -Insulin gtt as above -D5W @ 100 mL/hr while on insulin gtt -q1h accuchecks -FEATHER DUSTER WINDER regimen: Lantus 28U AM/38U PM, Novolog (8U breakfast, 14U lunch, 18U dinner + SSI TID), Metformin 1000 mg BID Hypothyroidism: FEATHER DUSTER WINDER levothyroxine 200 mcg daily ObtainTSH. Anxiety/Depression: FEATHER DUSTER WINDER celexa, trazodone, and PRN ativan. GERD: FEATHER DUSTER WINDER PPI. PCOS: Holding metformin and aldactone. Tobacco [...] day, the housestaff can be pagedvia the [facility] Hospitalist Norbert. For questions on this patient 5pm-7am Saturday through Saturday, and 12pm to 7am Saturday and Saturday, please call the on-call chemist intern at zone phone [phone]. RER SCREEN MEASURER AND TRIMMER Associated attestation - Loki Vences MD - 05/17/2018 3:28 AM SHEARER SCREEN MEASURER AND TRIMMER [facility] Adult Hospitalist Attending Note I reviewed the [...] lab and test results. Loki Vences MD [facility] Hospitalist documented in this encounter Procedure Notes * Hugo Randall MD - 05/17/2018 12:12 PM CST Central Venous Catheter Insertion Procedure Note Date of Service: 05/17/2018 Procedure: Insertion of Central Venous Catheter Indications: need for apheresis Surgeon: Malcom Valentin MD Senior Cytotechnologist: Hugo Randall MD Procedure Details Informed consent [...] placement. Hugo Randall MD, 05/17/2018 12:14 PM RER SCREEN MEASURER AND TRIMMER Associated attestation - Malcom Valentin MD - 05/17/2018 2:26 PM SHEARER SCREEN MEASURER AND TRIMMER I was scrubbed for the entire procedure Malcom Valentin MD, Date of Service: 05/17/2018 2:26 PM Pager # [phone] *If unable to reach me, please call the stitch bonding machine operator and ask for the On-Call Trauma Surgeon* documented in this encounter Consult Notes * Karen ClevelandARMAND - 05/20/2018 9:39 AM CSTAssociated Order(s): IP CONSULT TO NUTRITION SERVICES CLINICAL DIETITIAN ASSESSMENT NOTE [facility] CONSULT: Diet selection, Education Casandra Doss 42 y.o. female A: patient has been seen by RD's here before. Recurrent pancreatitis and chronic high (extremely high, >4000 at admit) triglycerides. The thought seems to be that this is genetic. Getting apheresis to bring them down. She is followed by a lipidologist. FEATHER DUSTER WINDER was taking Crestor 20 mg, Fenofibrate 160 mg daily, Niacin 500 mg BID. Reviewed pt home diet: Breakfast: pt states she typically skips breakfast and does not eat till around 1pm Lunch: salad with egg Dinner: baked chicken or other meat with vegetables (ex carrots, broccoli, or mixed vegetables) Snacks: occasionally. Drinks a low CHO, low fat protein drink sometimes from [employer]. Checks AM blood sugars, usually run 140-160 [...] 61.5 kg (05/19/182025) Last Bowel Movement (mm/dd/yyyy): (FEATHER DUSTER WINDER- refusing stool softeners tonight) (05/19/181953) Chin Score: 19 (05/19/181953) Skin: no staged pressure injury Edema (per provider repulping supervisor charting): none Pert Meds: lipitor, finofibrate, niacin, [...] and as needed. Karen Cleveland RD, LD RER SCREEN MEASURER AND TRIMMER documented in this encounter ED Notes * Alexandra Monzon RN - 05/16/2018 5:41 PM CST CMP redrawn and sent to lab at this time. Pt reports no relief after pain medicaid nurse, MD Foreman made aware. Pt continues to resting quietly on stretcher watching television, RR even and unlabored. Skin is WNL. Pt in NAD. RER SCREEN MEASURER AND TRIMMER * Alexandra Monzon RN - 05/16/2018 5:11 PM CST Pt medicated for pain per MAR. Patient/family has been informed about benefits and any potential clinically significant side effects or other concerns regarding the administration of the drug they have just been given. warm blankets provided. RER SCREEN MEASURER AND TRIMMER * Alexandra Monzon RN - 05/16/2018 4:50 [...] RR even and unlabored. Pt in NAD. RER SCREEN MEASURER AND TRIMMER * Alexandra Monzon RN - 05/16/2018 4:26 PM CST Pt ambulatory to RR to provide CC UA. Pt given supplies and education regarding CC UA. RER SCREEN MEASURER AND TRIMMER * Puja Garcia RN - 05/16/2018 3:34 PM CST We promote safety at our facility and do not allow any type of weapon in the building. Do you have a weapon or something that could be used as a weapon on you today? denied possession of any weapons or firearms at this time. RER SCREEN MEASURER AND TRIMMER * Eva Foreman MD - 05/16/2018 3:23 [...] had heart issues. Physician(s): Guerrero Middleton PA-C Engineering Analyst: Marlys Mayer MD History provided by: The patient and medical records translator/interpreter used: No Arrived by: Private vehicle Arrived [...] mg tablet Take 100 mg by mouth. Mpipl5-GhrG4-U87-E-FA-Fish Oil [id number] xv-ft-snp-mcg Capsule Take 2 Caplets by mouth 2 [...] hyperlipidemia 6:37 PM: Discussed with ANNA Walsh ([facility] Hospitalist) who will admit to Medical [...] mg tablet Take 100 mg by mouth. Dewvo7-GcvX9-M11-E-FA-Fish Oil [id number] yr-mf-mdr-mcg Capsule Take 2 Caplets by mouth 2 [...] and medical decision making performed by me. RER SCREEN MEASURER AND TRIMMER documented in this encounter Miscellaneous Notes * Care Plan - Jeff Keller RN - 05/21/2018 6:15 PM CST Pt read and verbalized understanding of discharge instructions. Central line removed. Pt ordered and tolerated dinner. RER SCREEN MEASURER AND TRIMMER * Care Plan - Yamileth Carolina RN - 05/21/2018 3:34 AM CST Ms. Doss has c/o pain in abdominal area at times during shift. She has been given IV dilaudid perher request per JUN. She has been seen sleeping at times during this shift. IV fluids continued perMAR. No further concerns at this time. RER SCREEN MEASURER AND TRIMMER * Care Plan - Reina Davidson RN - 05/20/2018 8:35 PM CST Triglyceride today 354. Diet was advanced for dinner to bland /low fat . Patient requested compazine after dinner, no emesis. Continue pain control w/ po and iv pain medication. Urinate large amount urine , bladder scan was done PVR was 176 ml . Continue ivf. POC was discussed with the patient RER SCREEN MEASURER AND TRIMMER * Treatment Plan - Karen Cleveland RD - 05/20/2018 10:04 AM CST Order Writing Protocol for Registered Dietitians(RD) and Speech Language Pathologists (caramel cutter helper) [facility] Enter Orders ???per protocol?? in the EHR Policy: With the goal of providing the most efficient, effective and safe process for initiating or changing nutrition therapy as recommended by a Registered Dietitian (RD) or Speech Language Pathologist (MANAGER STYLIST). This protocol gives the RD or MANAGER STYLIST Order writing privileges within her/his scope of practice. Definitions: An RD is considered qualified to write orders that do not require a physician co-signature by: o Maintaining registration through the Commission on Dietetic Registration o Maintaining licensure through [place] Licensure. o Demonstrating Clinical Nutrition competency as verified by the Clinical Equipment Services Associate initially and as part of the annual performance appraisal. A MANAGER STYLIST is considered qualified by virtue of: o Maintaining licensure as a MANAGER STYLIST in the state of [place] o Maintaining Certificate of Clinical Competency (CCC) as designated by the [employer] o Demonstrating competency under the direction of the site manager of MANAGER STYLIST at [facility] ([facility]) Responsibilities: 1. The Physician: o Has [...] oforder. 10/11/2009 [employer] Protocol 2. An MANAGER STYLIST may modify diet texture or liquid consistency according to the following guidelines: o Only texture modifications (with aspiration precautions) will be made (no nutritional modifications) o The MANAGER STYLIST will see the patient and make texture modifications only after being consulted by a physician or midlevel practitioner. o Diet will not be upgraded if GI contraindications are present unless given approval by the consulting physician or midlevel practitioner o Diet will not be changed if the patient is NPO unless given approval by physician or midlevel practitioner o caramel cutter helper will follow any diet restrictions posted in [...] count as appropriate. Add any instructions here RER SCREEN MEASURER AND TRIMMER * Care Plan - Susan Lim GN - 05/20/2018 6:04 AM CST Pt arrived to floor and oriented to room. C/o pain; prn percocet and dilaudid given w/ slight relief. BS's done q4h- Appetite poor. IVF infusing. .Undress and Assess performed by: Bere Admission or upon transfer to: [facility] ~~~~~~~~~~~~~~~~~~~~~~~~~~~~ Is the patient a paraplegic/quadriplegic? 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 Prior to admission, patient resided with her [...] If [place] will [place], patient does not need a PASARR screening to be started (ie, prior psych admission or intensive services, MR/DD diagnosis prior to the age of 22). Readmission Risk (patient becomes high risk with a score of 8 or greater) 5 Total Score 5 Prior Hospitalizations Primary Emergency Contact: José Miguel Doss PCP verified as Guerrero Middleton PA-C. Patient's insurance verified as Payor: [employer] / Plan: ALL SAVERS CHOICE / Product Type: Commercial / The patient's preferred pharmacy [facility] [address] [place] [id number] [place] [address] Discussed discharge goals and possible discharge needs including home with family. No discharge needs identified at this time. Care Management contact information provided. Care Management will continue to follow and assist asneeded. Zahraa Latham RN Care Manager [phone] RER SCREEN MEASURER AND TRIMMER * Therapy Evaluation - Luisa Royal, Occupational [...] was independent with all ADL and working FEATHER DUSTER WINDER. O: Vision: No glasses Cognition/Perception: Pt stated [...] services Luisa Royal MS, OTR/L Zone #: [id number] RER SCREEN MEASURER AND TRIMMER * Therapy Evaluation - Snehal Ba, Physical [...] HYSTERECTOMY partial due to endometriosis 2006 ??? ID ESOPHAGOGASTRODUODENOSCOPY TRANSORAL DIAGNOSTIC N/A 03/08/2018 ESOPHAGOGASTRODUODENOSCOPY performed by Ceasar Vega MD at [facility] GI LAB S: Patient reports 10/06 pain. Pain intervention: RN aware; Meds admin post session Response to pain intervention: Appeared content, Agrees to continue Living Situation/Functional Level FEATHER DUSTER WINDER: Pt lives with and son in a [...] section of the medical chart. Zone #: [id number] On weekends--please call [phone] RER SCREEN MEASURER AND TRIMMER documented in this encounter Plan of Treatment Upcoming Encounters Date Type Department Care Team (Late st Contact Info) Description 09/14/2024 3:00 PM CDT Office Visit [facility] Heart [facility] Vascular - [place] [id number] [place] [address] Marlys Mayer MD [address] [place] [address] documented as of this encounter Procedures Procedure Name Priority Date/Time Associated Diagnosis Comments POC GLUCOSE Routine 05/21/2018 5:27 PM SHEARER SCREEN MEASURER AND TRIMMER POC GLUCOSE Routine 05/21/2018 3:03 PM SHEARER SCREEN MEASURER AND TRIMMER POC GLUCOSE Routine 05/21/2018 10:20 AM SHEARER SCREEN MEASURER AND TRIMMER CBC WITH DIFFERENTIAL Routine 05/21/2018 6:48 AM SHEARER SCREEN MEASURER AND TRIMMER TRIGLYCERIDE Routine 05/21/2018 6:48 AM SHEARER SCREEN MEASURER AND TRIMMER COMPREHENSIVE METABOLIC PANEL Routine 05/21/2018 6:48 AM SHEARER SCREEN MEASURER AND TRIMMER POC GLUCOSE Routine 05/20/2018 9:11 PM SHEARER SCREEN MEASURER AND TRIMMER POC GLUCOSE Routine 05/20/2018 5:13 PM SHEARER SCREEN MEASURER AND TRIMMER POC GLUCOSE Routine 05/20/2018 12:50 PM SHEARER SCREEN MEASURER AND TRIMMER POC GLUCOSE Routine 05/20/2018 8:53 AM SHEARER SCREEN MEASURER AND TRIMMER CBC WITH DIFFERENTIAL Routine 05/20/2018 4:28 AM SHEARER SCREEN MEASURER AND TRIMMER TRIGLYCERIDE Routine 05/20/2018 4:28 AM SHEARER SCREEN MEASURER AND TRIMMER COMPREHENSIVE METABOLIC PANEL Routine 05/20/2018 4:28 AM SHEARER SCREEN MEASURER AND TRIMMER POC GLUCOSE Routine 05/20/2018 4:25 AM SHEARER SCREEN MEASURER AND TRIMMER POC GLUCOSE Routine 05/20/2018 1:37 AM SHEARER SCREEN MEASURER AND TRIMMER POC GLUCOSE Routine 05/19/2018 8:27 PM SHEARER SCREEN MEASURER AND TRIMMER TRIGLYCERIDE Routine 05/19/2018 6:23 PM SHEARER SCREEN MEASURER AND TRIMMER POC GLUCOSE Routine 05/19/2018 4:07 PM SHEARER SCREEN MEASURER AND TRIMMER EKG 12-LEAD Routine 05/19/2018 2:29 PM SHEARER SCREEN MEASURER AND TRIMMER POC GLUCOSE Routine 05/19/2018 11:55 AM SHEARER SCREEN MEASURER AND TRIMMER POC GLUCOSE Routine 05/19/2018 7:58 AM SHEARER SCREEN MEASURER AND TRIMMER CBC WITH DIFFERENTIAL Routine 05/19/2018 5:37 AM SHEARER SCREEN MEASURER AND TRIMMER TRIGLYCERIDE Routine 05/19/2018 5:37 AM SHEARER SCREEN MEASURER AND TRIMMER COMPREHENSIVE METABOLIC PANEL Routine 05/19/2018 5:37 AM SHEARER SCREEN MEASURER AND TRIMMER POC GLUCOSE Routine 05/19/2018 3:53 AM SHEARER SCREEN MEASURER AND TRIMMER POC GLUCOSE Routine 05/18/2018 11:55 PM SHEARER SCREEN MEASURER AND TRIMMER POC GLUCOSE Routine 05/18/2018 8:00 PM SHEARER SCREEN MEASURER AND TRIMMER TRIGLYCERIDE Routine 05/18/2018 5:30 PM SHEARER SCREEN MEASURER AND TRIMMER POC GLUCOSE Routine 05/18/2018 2:01 PM SHEARER SCREEN MEASURER AND TRIMMER POC GLUCOSE Routine 05/18/2018 12:14 PM SHEARER SCREEN MEASURER AND TRIMMER POC GLUCOSE Routine 05/18/2018 10:35 AM SHEARER SCREEN MEASURER AND TRIMMER PROTIME-INR Routine 05/18/2018 9:14 AM SHEARER SCREEN MEASURER AND TRIMMER POC GLUCOSE Routine 05/18/2018 9:04 AM SHEARER SCREEN MEASURER AND TRIMMER POC GLUCOSE Routine 05/18/2018 8:12 AM SHEARER SCREEN MEASURER AND TRIMMER CBC WITH DIFFERENTIAL Routine 05/18/2018 6:03 AM SHEARER SCREEN MEASURER AND TRIMMER TRIGLYCERIDE Routine 05/18/2018 6:03 AM SHEARER SCREEN MEASURER AND TRIMMER COMPREHENSIVE METABOLIC PANEL Routine 05/18/2018 6:03 AM SHEARER SCREEN MEASURER AND TRIMMER POC GLUCOSE Routine 05/18/2018 5:09 AM SHEARER SCREEN MEASURER AND TRIMMER POC GLUCOSE Routine 05/18/2018 4:04 AM SHEARER SCREEN MEASURER AND TRIMMER POC GLUCOSE Routine 05/18/2018 3:04 AM SHEARER SCREEN MEASURER AND TRIMMER POC GLUCOSE Routine 05/18/2018 2:06 AM SHEARER SCREEN MEASURER AND TRIMMER POC GLUCOSE Routine 05/18/2018 1:05 AM SHEARER SCREEN MEASURER AND TRIMMER POC GLUCOSE Routine 05/18/2018 12:01 AM SHEARER SCREEN MEASURER AND TRIMMER POC GLUCOSE Routine 05/17/2018 11:05 PM SHEARER SCREEN MEASURER AND TRIMMER POC GLUCOSE Routine 05/17/2018 10:04 PM SHEARER SCREEN MEASURER AND TRIMMER POC GLUCOSE Routine 05/17/2018 9:01 PM SHEARER SCREEN MEASURER AND TRIMMER POC GLUCOSE Routine 05/17/2018 8:03 PM SHEARER SCREEN MEASURER AND TRIMMER POC GLUCOSE Routine 05/17/2018 7:04 PM SHEARER SCREEN MEASURER AND TRIMMER POC GLUCOSE Routine 05/17/2018 6:07 PM SHEARER SCREEN MEASURER AND TRIMMER TRIGLYCERIDE Routine 05/17/2018 4:46 PM SHEARER SCREEN MEASURER AND TRIMMER POC GLUCOSE Routine 05/17/2018 3:57 PM SHEARER SCREEN MEASURER AND TRIMMER POC GLUCOSE Routine 05/17/2018 3:00 PM SHEARER SCREEN MEASURER AND TRIMMER POC GLUCOSE Routine 05/17/2018 1:58 PM SHEARER SCREEN MEASURER AND TRIMMER POC GLUCOSE Routine 05/17/2018 12:52 PM SHEARER SCREEN MEASURER AND TRIMMER XR CHEST PA OR AP 1 VW Stat 9 12:43 PM SHEARER SCREEN MEASURER AND TRIMMER POC GLUCOSE Routine 05/17/2018 11:43 AM SHEARER SCREEN MEASURER AND TRIMMER POC GLUCOSE Routine 05/17/2018 10:47 AM SHEARER SCREEN MEASURER AND TRIMMER POC GLUCOSE Routine 05/17/2018 10:26 AM SHEARER SCREEN MEASURER AND TRIMMER POC GLUCOSE Routine 05/17/2018 9:05 AM SHEARER SCREEN MEASURER AND TRIMMER POC GLUCOSE Routine 05/17/2018 7:52 AM SHEARER SCREEN MEASURER AND TRIMMER POC GLUCOSE Routine 05/17/2018 7:02 AM SHEARER SCREEN MEASURER AND TRIMMER POC GLUCOSE Routine 05/17/2018 6:03 AM SHEARER SCREEN MEASURER AND TRIMMER POC GLUCOSE Routine 05/17/2018 4:58 AM SHEARER SCREEN MEASURER AND TRIMMER POC GLUCOSE Routine 05/17/2018 4:10 AM SHEARER SCREEN MEASURER AND TRIMMER POC GLUCOSE Routine 05/17/2018 3:17 AM SHEARER SCREEN MEASURER AND TRIMMER POC GLUCOSE Routine 05/17/2018 2:05 AM SHEARER SCREEN MEASURER AND TRIMMER CBC WITH DIFFERENTIAL Routine 05/17/2018 1:21 AM SHEARER SCREEN MEASURER AND TRIMMER TRIGLYCERIDE Routine 05/17/2018 1:21 AM SHEARER SCREEN MEASURER AND TRIMMER COMPREHENSIVE METABOLIC PANEL Routine 05/17/2018 1:21 AM SHEARER SCREEN MEASURER AND TRIMMER OT EVAL AND TREAT Routine 05/16/2018 10: 29 PM SHEARER SCREEN MEASURER AND TRIMMER PT EVAL AND TREAT Routine 05/16/2018 10: 29 PM SHEARER SCREEN MEASURER AND TRIMMER LACTIC ACID Stat 05/16/2018 9:39 PM SHEARER SCREEN MEASURER AND TRIMMER HEMOGLOBIN A1C Routine 05/16/2018 9:39 PM SHEARER SCREEN MEASURER AND TRIMMER TSH Routine 05/16/2018 9:38 PM SHEARER SCREEN MEASURER AND TRIMMER OSMOLALITY Routine 05/16/2018 9:38 PM SHEARER SCREEN MEASURER AND TRIMMER LIPID PANEL Routine 05/16/2018 9:38 PM SHEARER SCREEN MEASURER AND TRIMMER POC GLUCOSE Routine 05/16/2018 7:56 PM SHEARER SCREEN MEASURER AND TRIMMER COMPREHENSIVE METABOLIC PANEL Stat 05/16/2018 5:41 PM SHEARER SCREEN MEASURER AND TRIMMER CBC WITH DIFFERENTIAL Stat 05/16/2018 4:39 PM SHEARER SCREEN MEASURER AND TRIMMER PROTIME-INR Stat 05/16/2018 4:39 PM SHEARER SCREEN MEASURER AND TRIMMER C-REACTIVE PROTEIN Stat 05/16/2018 4: 39 PM SHEARER SCREEN MEASURER AND TRIMMER LIPASE Stat 05/16/2018 4:39 PM SHEARER SCREEN MEASURER AND TRIMMER URINALYSIS W/REFLEX MICROSCOPIC Stat 05/16/2018 4:31 PM SHEARER SCREEN MEASURER AND TRIMMER documented in this encounter Results * (ABNORMAL) POC GLUCOSE (05/21/2018 5:27 PM SHEARER SCREEN MEASURER AND TRIMMER) GLUCOSE POC 171(H) 74 - 99 mg/dL 05/21/2018 5:41 PM SHEARER SCREEN MEASURER AND TRIMMER [facility] COMMENT, GLU POC Notified RN/ 05/21/2018 5:41 PM SHEARER SCREEN MEASURER AND TRIMMER [facility] [employer] INSTRUMENT MAKER HAND NAME POC BRAULIO MORGANECCA 05/21/2018 5:41 PM SHEARER SCREEN MEASURER AND TRIMMER [facility] Whole blood specimen (specimen) 05/21/2018 5:27 PM SHEARER SCREEN MEASURER AND TRIMMER 05/21/2018 5:41 PM SHEARER SCREEN MEASURER AND TRIMMER Karen Thomas MD POINT OF CARE TESTIN G [facility] [employer] [facility]# [id number] [address] [facility] [place] [address] * (ABNORMAL) POC GLUCOSE (05/21/2018 3:03 PM SHEARER SCREEN MEASURER AND TRIMMER) GLUCOSE POC 186(H) 74 - 99 mg/dL 05/21/2018 3:17 PM SHEARER SCREEN MEASURER AND TRIMMER [facility] COMMENT, GLU POC Notified RN/ 05/21/2018 3:17 PM SHEARER SCREEN MEASURER AND TRIMMER [facility] FRETTED INSTRUMENT MAKER HAND NAME POC BRAULIO MORGANECCA 05/21/2018 3:17 PM SHEARER SCREEN MEASURER AND TRIMMER [facility] Whole blood specimen (specimen) 05/21/2018 3:03 PM SHEARER SCREEN MEASURER AND TRIMMER 05/21/2018 3:17 PM SHEARER SCREEN MEASURER AND TRIMMER Karen Thomas MD POINT OF CARE TESTJERONIMO Serrano Performing Organization Address [facility]/ZIP Co de Phone Number [facility] [employer] [facility] CLIA# [id number] [address] [place] [address] * (ABNORMAL) POC GLUCOSE (05/21/2018 10:20 AM SHEARER SCREEN MEASURER AND TRIMMER) GLUCOSE POC 155(H) 74 - 99 mg/dL 05/21/2018 10:36 AM SHEARER SCREEN MEASURER AND TRIMMER [employer] [facility]ORATORY SERVICES [facility] FRETTED INSTRUMENT MAKER HAND NAME KAYLYN LONGORIA 05/21/2018 10:36 AM SHEARER SCREEN MEASURER AND TRIMMER [employer] [facility] Whole blood specimen (specimen) 05/21/2018 10:20 AM SHEARER SCREEN MEASURER AND TRIMMER 05/21/2018 10:36 AM SHEARER SCREEN MEASURER AND TRIMMER Karen Thomas MD POINT OF CARE TESTJERONIMO Serrano Performing Organization Address [facility] Co de Phone Number [employer] [facility]# [id number] [address] [place] [address] * (ABNORMAL) COMPREHENSIVE METABOLIC PANEL (05/21/2018 6:48 AM SHEARER SCREEN MEASURER AND TRIMMER) SODIUM 145 136 - 145 mmol/L 05/21/2018 7:37 AM SHEARER SCREEN MEASURER AND TRIMMER [employer] [facility] POTASSIUM 3.4(L) 3.5 - 5.0 mmol/L 05/21/2018 7:37 AM SHEARER SCREEN MEASURER AND TRIMMER [employer] [facility] - [facility] CHLORIDE 102 98 - 107 mmol/L 05/21/2018 7:37 AM SHEARER SCREEN MEASURER AND TRIMMER [employer] [facility] - [facility] CO2 29 22 - 29 mmol/L 05/21/2018 7:37 AM SHEARER SCREEN MEASURER AND TRIMMER [employer] [facility] - [facility] CALCIUM 9.1 8.6 - 10.2 mg/dL 05/21/2018 7:37 AM SHEARER SCREEN MEASURER AND TRIMMER [employer] [facility] - [facility] BUN 5(L) 6 - 20 mg/dL 05/21/2018 7:37 AM SHEARER SCREEN MEASURER AND TRIMMER [facility] - . [facility] CREATININE 0.59 0.51 - 0.95 mg/dL 05/21/2018 7:37 AM [facility] [employer] [facility] GLUCOSE 158(H) 74 - 99 mg/dL 05/21/2018 7:37 AM [facility] - . [facility] TOTAL PROTEIN 5.8(L) 6.7 - 8.6 g/dL 05/21/2018 7:37 AM [facility] [employer] [facility]. [facility] ALBUMIN 4.3 3.5 - 5.2 g/dL 05/21/2018 7:37 AM [facility] [employer] LABORATORY [facility] BILIRUBIN TOTAL 0.6 0.3 - 1.2 mg/dL 05/21/2018 7:37 AM [facility] [employer] [facility] ALKALINE PHOSPHATASE 31(L) 35 - 104 U/L 05/21/2018 7:37 AM [facility] [employer] [facility] AST 12 <33 U/L 05/21/2018 7:37 AM [facility] [employer] [facility]. [facility] ALT 9 <34 U/L 05/21/2018 7:37 AM [facility] [employer] [facility] GFR >60 >=60 mL/min/1.7 3 sq meter 05/21/2018 7:37 AM [facility] [employer] [facility] Comment: eGFR has not [...] mL/min/1.7 3 sq meter 05/21/2018 7:37 AM [facility] [employer] LABORATORY [facility] ANION GAP 14 8 - 16 mmol/L 05/21/2018 7:37 AM [facility] [employer] [facility] Blood Venipuncture / Unknown 05/21/2018 6:48 AM SHEARER SCREEN MEASURER AND TRIMMER 05/21/2018 7:01 AM [facility] [employer] LABORATORY SERVICES - [facility] - 05/21/2018 7:37 AM SHEARER SCREEN MEASURER AND TRIMMER Samples containing indocyanine green cause interferences on Total and/or Direct Bilirubin and must not be measured. Loki Vences MD CHEMISTRY ORDERABLES [facility] [employer] SERVICES - [facility] CLIA# [id number] [address] [place] [address] * (ABNORMAL) CBC WITH DIFFERENTIAL (05/21/2018 6:48 AM SHEARER SCREEN MEASURER AND TRIMMER) [facility] WBC 7.8 4.0 - 9.8 K/uL 05/21/2018 7:13 AM [facility] [employer] [facility] RBC 3.67(L) 3.90 - 4.90 M/uL 05/21/2018 7:13 AM [facility] [employer] [facility] HEMOGLOBIN 11.1(L) 11.8 - 14.8 g/dL 05/21/2018 7:13 AM [facility] [employer] [facility] HEMATOCRIT 33.5(L) 35.5 - 44.0 % 05/21/2018 7:13 AM [facility] [employer] [facility] MCV 91.3 82.0 - 99.0 fL 05/21/2018 7:13 AM [facility] [employer] [facility] MCH 30.2 27.2 - 32.6 pg 05/21/2018 7:13 AM [facility] [employer] [facility] MCHC 33.1 31.5 - 35.5 g/dL 05/21/2018 7:13 AM [facility] [employer] [facility] - [facility] RDW 13.5 11.5 - 14.5 % 05/21/2018 7:13 AM [facility] [employer] [facility] RDW-STDEV 45.4 37.1 - 48.7 fL 05/21/2018 7:13 AM [facility] [employer] - [facility] PLATELETS 184 140 - 350 K/uL 05/21/2018 7:13 AM [facility] [employer] - [facility] MPV 9.3 9.3 - 12.4 fL 05/21/2018 7:13 AM [facility] [employer] - [facility] NEUTROPHILS 68 % 05/21/2018 7:13 AM [facility] LYMPHOCYTES 24 % 05/21/2018 7:13 AM [facility] MONOCYTES 6 % 05/21/2018 7:13 AM [facility] EOSINOPHILS 1 % 05/21/2018 7:13 AM [facility] BASOPHILS 0 % 05/21/2018 7:13 AM [facility] IMMATURE GRANULOCYTES 1 % 05/21/2018 7:13 AM [facility] Comment:IG (Immature Granulo cyte) count includes Metamyelocytes, Myelocytes, and Promyelocytes NEUTROPHIL ABSOLUTE 5.32 1.90 - 7.00 K/uL 05/21/2018 7:13 AM [facility] LYMPHOCYTE ABSOLUTE 1.84 0.70 - 4.50 K/uL 05/21/2018 7:[address] [facility] MONOCYTE ABSOLUTE 0.50 0.10 - 1.30 K/uL 05/21/2018 7:13 AM [facility] EOSINOPHIL ABSOLUTE 0.07 0.00 - 0.70 K/uL 05/21/2018 7:13 AM [facility] BASOPHILS ABSOLUTE 0.02 0.00 - 0.20 K/uL 05/21/2018 7:13 AM [facility] IMMATURE GRANULOCYTES ABSOLUTE 0.06(H) 0.00 - 0.03 K/uL 05/21/2018 7:[address] [facility] Blood Venipuncture / Unknown 05/21/2018 6:48 AM SHEARER SCREEN MEASURER AND TRIMMER 05/21/2018 7:02 AM [facility] Loki Vences MD HEMATOLOGY ORDERABLE [facility]# [id number] [address] [facility] [address] [address] * (ABNORMAL) TRIGLYCERIDE (05/21/2018 6:48 AM SHEARER SCREEN MEASURER AND TRIMMER) TRIGLYCERIDE 324(H) <150 mg/dL 05/21/2018 7:37 AM [facility] [employer] SERVICES [facility] Blood Venipuncture / Unknown 05/21/2018 6:48 AM SHEARER SCREEN MEASURER AND TRIMMER 05/21/2018 7:01 AM SHEARER SCREEN MEASURER AND TRIMMER Narrative [facility] LAB[facility] - 05/21/2018 7:37 AM SHEARER SCREEN MEASURER AND TRIMMER TRIGLYCERIDES ? mg/dL Normal ?< 150 Borderline High ?150 - 199 High ? 200 - 499 Very High ? >= 500 Based on AHA/NCEP Guidelines. Loki Vences MD CHEMISTRY ORDERABLES Performing Organization Address [facility] Co de Phone Number [facility]# [id number] [address] [place] [address] * (ABNORMAL) POC GLUCOSE (05/20/2018 9:11 PM SHEARER SCREEN MEASURER AND TRIMMER) GLUCOSE POC 196(H) 74 - 99 mg/dL 05/20/2018 9:37 PM SHEARER SCREEN MEASURER AND TRIMMER [facility] FRETTED INSTRUMENT MAKER HAND NAME POC YAMILETH [place] 05/20/2018 9:37 PM SHEARER SCREEN MEASURER AND TRIMMER [facility] [employer] [facility] Whole blood specimen (specimen) 05/20/2018 9:11 PM SHEARER SCREEN MEASURER AND TRIMMER 05/20/2018 9:37 PM SHEARER SCREEN MEASURER AND TRIMMER Manan Dumont MD POINT OF CARE TEST ING Performing Organization Address [facility] Co de Phone Number [facility] [employer] [facility]# [id number] [address] [place] [address] * (ABNORMAL) POC GLUCOSE (05/20/2018 5:13 PM SHEARER SCREEN MEASURER AND TRIMMER) GLUCOSE POC 127(H) 74 - 99 mg/dL 05/20/2018 5:29 PM SHEARER SCREEN MEASURER AND TRIMMER [facility] F[employer] INSTRUMENT MAKER HAND NAME POC SUNIL PEÑA 05/20/2018 5:29 PM SHEARER SCREEN MEASURER AND TRIMMER [facility] Whole blood specimen (specimen) 05/20/2018 5:13 PM SHEARER SCREEN MEASURER AND TRIMMER 05/20/2018 5:29 PM SHEARER SCREEN MEASURER AND TRIMMER Manan Dumont MD POINT OF CARE TEST ING [facility] [employer] [facility] CLIA# [id number] [address] [place] [address] * (ABNORMAL) POC GLUCOSE (05/20/2018 12:50 PM SHEARER SCREEN MEASURER AND TRIMMER) GLUCOSE POC 136(H) 74 - 99 mg/dL 05/20/2018 1:26 PM SHEARER SCREEN MEASURER AND TRIMMER [facility] FRETTED INSTRUMENT MAKER HAND NAME POC SUNIL PEÑA 05/20/2018 1:26 PM SHEARER SCREEN MEASURER AND TRIMMER [facility] Whole blood specimen (specimen) 05/20/2018 12:50 PM SHEARER SCREEN MEASURER AND TRIMMER 05/20/2018 1:26 PM SHEARER SCREEN MEASURER AND TRIMMER Manan Dumont MD POINT OF CARE TEST ING Performing Organization Address [facility]/ZIP Co de Phone Number [facility] [employer] [facility] CLTX# [id number] [address] [place] [address] * (ABNORMAL) POC GLUCOSE (05/20/2018 8:53 AM SHEARER SCREEN MEASURER AND TRIMMER) GLUCOSE POC 141(H) 74 - 99 mg/dL 05/20/2018 9:24 AM SHEARER SCREEN MEASURER AND TRIMMER [facility] FRETTED INSTRUMENT MAKER HAND NAME POC SUNIL PEÑA 05/20/2018 9:24 AM SHEARER SCREEN MEASURER AND TRIMMER [employer] [facility]OR[facility] Whole blood specimen (specimen) 05/20/2018 8:53 AM SHEARER SCREEN MEASURER AND TRIMMER 05/20/2018 9:24 AM SHEARER SCREEN MEASURER AND TRIMMER Manan Dumont MD POINT OF CARE TEST ING Performing Organization Address [facility]/ZIP Co de Phone Number [facility] [employer] [facility] CLIA# [id number] [address] [place] [address] * (ABNORMAL) COMPREHENSIVE METABOLIC PANEL (05/20/2018 4:28 AM [facility]) SODIUM 140 136 - 145 mmol/L 05/20/2018 5:09 AM SHEARER SCREEN MEASURER AND TRIMMER [employer] [facility] POTASSIUM 3.5 3.5 - 5.0 mmol/L 05/20/2018 5:09 AM SHEARER SCREEN MEASURER AND TRIMMER [facility] CHLORIDE 102 98 - 107 mmol/L 05/20/2018 5:09 AM SHEARER SCREEN MEASURER AND TRIMMER [employer] [facility] CO2 26 22 - 29 mmol/L 05/20/2018 5:09 AM [employer] [facility] - [facility] CALCIUM 8.7 8.6 - 10.2 mg/dL 05/20/2018 5:09 AM SHEARER SCREEN MEASURER AND TRIMMER [employer] [facility] BUN 3(L) 6 - 20 mg/dL 05/20/2018 5:09 AM [facility] CREATININE 0.52 0.51 - 0.95 mg/dL 05/20/2018 5:09 AM [employer]CRE[employer] [facility] GLUCOSE 150(H) 74 - 99 mg/dL 05/20/2018 5:09 AM [facility] TOTAL PROTEIN 5.0(L) 6.7 - 8.6 g/dL 05/20/2018 5:09 AM [facility] ALBUMIN 4.3 3.5 - 5.2 g/dL 05/20/2018 5:09 AM [facility] BILIRUBIN TOTAL 0.6 0.3 - 1.2 mg/dL 05/20/2018 5:09 AM [facility] ALKALINE PHOSPHATASE 22(L) 35 - 104 U/L 05/20/2018 5:09 AM [employer] [facility] AST 10 <33 U/L 05/20/2018 5:09 AM [facility] ALT 7 <34 U/L 05/20/2018 5:09 AM [facility] GFR >60 >=60 mL/min/1.7 3 sq meter 05/20/2018 5:09 AM [facility] Comment: eGFR [...] mL/min/1.7 3 sq meter 05/20/2018 5:09 AM [facility] [employer] [facility] ANION GAP 12 8 - 16 mmol/L 05/20/2018 5:09 AM [facility] [employer] [facility] Blood Venipuncture / Unknown 05/20/2018 4:28 AM [employer]CRE[employer] ME[employer]MER 05/20/2018 4:33 AM [facility] [employer] [facility] - 05/20/2018 5:09 AM [facility] Samples containing indocyanine green cause interferences on Total and/or Direct Bilirubin and must not be measured. Loki Vences MD CHEMISTRY ORDERABLES [facility] [employer] [facility]# [id number] [address] [facility] [place] [address] * (ABNORMAL) CBC WITH DIFFERENTIAL (05/20/2018 4:28 AM SHE[employer]CRE[employer] MEAS[employer]IMMER) WBC 7.3 4.0 - 9.8 K/uL 05/20/2018 4:52 AM [facility] [employer] [facility] RBC 3.35(L) 3.90 - 4.90 M/uL 05/20/2018 4:52 AM [facility] [employer] [facility] HEMOGLOBIN 10.2(L) 11.8 - 14.8 g/dL 05/20/2018 4:52 AM [facility] [employer] [facility] HEMATOCRIT 30.6(L) 35.5 - 44.0 % 05/20/2018 4:52 AM [facility] [employer] [facility] MCV 91.3 82.0 - 99.0 fL 05/20/2018 4:52 AM [facility] [employer] [facility] MCH 30.4 27.2 - 32.6 pg 05/20/2018 4:52 AM [email or web address] MCHC 33.3 31.5 - 35.5 g/dL 05/20/2018 4:52 AM SHE[employer] SCRE[employer] [facility] RDW 13.6 11.5 - 14.5 % 05/20/2018 4:52 AM SHE[employer]CRE[employer] [facility] RDW-STDEV 45.4 37.1 - 48.7 fL 05/20/2018 4:52 AM SHE[employer] SCRE[employer] [facility] PLATELETS 164 140 - 350 K/uL 05/20/2018 4:52 AM SHE[employer] SCRE[employer] ME[employer] [facility] MPV 9.4 9.3 - 12.4 fL 05/20/2018 4:52 AM SHEAR[employer] SCRE[employer] MEASURER [employer]MER [facility] [facility] NEUTROPHILS 64 % 05/20/2018 4:52 AM [facility] - [facility] LYMPHOCYTES 28 % 05/20/2018 4:52 AM SHEARER SCREEN MEASURER [employer] TRIMMER [facility] MONOCYTES 7 % 05/20/2018 4:52 AM SHEARER SCREEN MEASURER AND TRIMMER [facility] EOSINOPHILS 1 % 05/20/2018 4:52 AM SHEARER SCREEN MEASURER AND TRIMMER [facility] - [facility] BASOPHILS 0 % 05/20/2018 4:52 AM [facility] IMMATURE GRANULOCYTES 0 % 05/20/2018 4:52 AM [facility] - [facility] NEUTROPHIL ABSOLUTE 4.64 1.90 - 7.00 K/uL 05/20/2018 4:52 AM [facility] - [facility] LYMPHOCYTE ABSOLUTE 2.05 0.70 - 4.50 K/uL 05/20/2018 4:52 AM [email or web address] - [facility] MONOCYTE ABSOLUTE 0.50 0.10 - 1.30 K/uL 05/20/2018 4:52 AM SHEARER SCREEN MEASURER AND TRIMMER [facility] - [facility] EOSINOPHIL ABSOLUTE 0.07 0.00 - 0.70 K/uL 05/20/2018 4:52 AM SHEARER SCREEN MEASURER AND TRIMMER [facility] - [facility] BASOPHILS ABSOLUTE 0.02 0.00 - 0.20 K/uL 05/20/2018 4:52 AM SHEARER SCREEN MEASURER AND TRIMMER [facility] - [facility] IMMATURE GRANULOCYTES ABSOLUTE 0.02 0.00 - 0.03 K/uL 05/20/2018 4:52 AM [facility] Blood Venipuncture / Unknown 05/20/2018 4:28 AM SHEARER SCREEN MEASURER AND TRIMMER 05/20/2018 4:33 AM SHEARER SCREEN MEASURER AND TRIMMER Loki Vences MD HEMATOLOGY ORDERABLE S Performing Organization Address [facility] Co de Phone Number [facility]# [id number] [address] [place] [address] * (ABNORMAL) TRIGLYCERIDE (05/20/2018 4:28 AM SHEARER SCREEN MEASURER AND TRIMMER) TRIGLYCERIDE 354(H) <150 mg/dL 05/20/2018 5:09 AM [facility] [employer] [facility] Blood Venipuncture / Unknown 05/20/2018 4:28 AM SHEARER SCREEN MEASURER AND TRIMMER 05/20/2018 4:33 AM SHEARER SCREEN MEASURER AND TRIMMER Narrative [facility] [employer] [facility] - 05/20/2018 5:09 AM SHEARER SCREEN MEASURER AND TRIMMER TRIGLYCERIDES ? mg/dL Normal ?< 150 Borderline High ?150 - 199 High ? 200 - 499 Very High ? >= 500 Based on AHA/NCEP Guidelines. Loki Vences MD CHEMISTRY ORDERABLES Performing Organization Address [facility] de Phone Number [facility] [employer] [facility]# [id number] [address] [place] [address] * (ABNORMAL) POC GLUCOSE (05/20/2018 4:25 AM SHEARER SCREEN MEASURER AND TRIMMER) GLUCOSE POC 146(H) 74 - 99 mg/dL 05/20/2018 6:01 AM [facility] LABORATORY [facility] COMMENT, GLU POC Notified RN/MD 05/20/2018 6:01 AM [facility] LABORATORY [facility] [employer] IN[employer]UMENT [employer] HAND NAME POC SREE WALKER 05/20/2018 6:01 AM [facility] [employer] [facility] Whole blood specimen (specimen) 05/20/2018 4:25 AM SHEAR[employer] SCREEN MEASURER AND TRIMMER 05/20/2018 6:00 AM SHEARER SCREEN MEASURER AND TRIMMER Manan Dumont MD POINT OF CARE TEST ING Performing Organization Address [facility] Co de Phone Number [facility] [employer] [facility]# [id number] [address] [place] [address] * (ABNORMAL) POC GLUCOSE (05/20/2018 1:37 AM SHEARER SCREEN MEASURER AND TRIMMER) GLUCOSE POC 157(H) 74 - 99 mg/dL 05/20/2018 1:50 AM SHEARER SCREEN MEASURER AND TRIMMER [facility] COMMENT, GLU POC Notified RN/ 05/20/2018 1:50 AM SHEARER SCREEN MEASURER AND TRIMMER [facility] FRETTED INSTRUMENT MAKER HAND NAME POC SREE WALKER 05/20/2018 1:50 AM SHEARER SCREEN MEASURER AND TRIMMER [facility] Whole blood specimen (specimen) 05/20/2018 1:37 AM SHEARER SCREEN MEASURER AND TRIMMER 05/20/2018 1:50 AM SHEARER SCREEN MEASURER AND TRIMMER Manan Dumont MD POINT OF CARE TEST ING Performing Organization Address [facility] de Phone Number [facility] [employer] [facility]# [id number] [address] [place] [address] * (ABNORMAL) POC GLUCOSE (05/19/2018 8:27 PM SHEARER SCREEN MEASURER AND TRIMMER) GLUCOSE POC 144(H) 74 - 99 mg/dL 05/19/2018 8:43 PM SHEARER SCREEN MEASURER AND TRIMMER [facility] COMMENT, GLU POC Notified RN/ 05/19/2018 8:43 PM SHEARER SCREEN MEASURER AND TRIMMER [facility] FRETTED INSTRUMENT MAKER HAND NAME POC SREE WALKER 05/19/2018 8:43 PM SHEARER SCREEN MEASURER AND TRIMMER [facility] Whole blood specimen (specimen) 05/19/2018 8:27 PM SHEARER SCREEN MEASURER AND TRIMMER 05/19/2018 8:43 PM SHEARER SCREEN MEASURER AND TRIMMER Manan Dumont MD POINT OF CARE TEST ING Performing Organization Address [facility] Co de Phone Number [facility] [employer] [facility]# [id number] [address] [place] [address] * (ABNORMAL) TRIGLYCERIDE (05/19/2018 6:23 PM SHEARER SCREEN MEASURER AND TRIMMER) TRIGLYCERIDE 279(H) <150 mg/dL 05/19/2018 7:11 PM SHEARER SCREEN MEASURER AND TRIMMER [facility] LABORATORY [facility] Blood Venipuncture / Unknown 05/19/2018 6:23 PM SHEARER SCREEN MEASURER AND TRIMMER 05/19/2018 6:28 PM SHEARER SCREEN MEASURER AND TRIMMER Narrative [facility] LABORATORY [facility] - 05/19/2018 7:11 PM SHEARER SCREEN MEASURER AND TRIMMER TRIGLYCERIDES ? mg/dL Normal ?< 150 Borderline High ?150 - 199 High ? 200 - 499 Very High ? >= 500 Based on AHA/NCEP Guidelines. Loki Vences MD CHEMISTRY ORDERABLES Performing Organization Address [facility] Co de Phone Number [facility] [employer] [facility]# [id number] [address] [place] [address] * (ABNORMAL) POC GLUCOSE (05/19/2018 4:07 PM SHEARER SCREEN MEASURER AND TRIMMER) GLUCOSE POC 125(H) 74 - 99 mg/dL 05/19/2018 4:19 PM SHEARER SCREEN MEASURER AND TRIMMER [facility] LABORATORY [facility] COMMENT, GLU POC Notified RN/MD 05/19/2018 4:19 PM SHEARER SCREEN MEASURER AND TRIMMER [facility] LABORATORY SERVICES [facility] FRETTED INSTRUMENT MAKER HAND NAME POC MICHAEL FUNGPAL 05/19/2018 4:19 PM SHEARER SCREEN MEASURER AND TRIMMER [facility] LABORATORY [facility] Whole blood specimen (specimen) 05/19/2018 4:07 PM SHEARER SCREEN MEASURER AND TRIMMER 05/19/2018 4:19 PM SHEARER SCREEN MEASURER AND TRIMMER Manan Dumont MD POINT OF CARE TEST ING Performing Organization Address [facility]/ZIP Co de Phone Number [facility] [employer] [facility] [id number] [address] [place] [address] * EKG 12-LEAD (05/19/2018 2:29 PM SHEARER SCREEN MEASURER AND TRIMMER) 05/19/2018 2:29 PM SHEARER SCREEN MEASURER AND TRIMMER Narrative INTERFACE SYSTEM - 05/20/2018 9:10 AM SHEARER SCREEN MEASURER AND TRIMMER ? Stationary ECG Study ? [facility] ? Test Date: ?05/19/2018 2:29 PM Pat Name: ? CASANDRA DOSS ?Department: ?? 6 ?Room: ? 6311 Gender: ? F ?Screen Room Operator: ?? geoff : ?[id number] ? Requested By: EVA FOREMAN Order Number: [id number] ?Reading MD: ?? Percy Alaniz ? Measurements Intervals ?[place] ? Rate: ? 76 ? P: ?34 ID: ? [id number] ?QRS: ?24 QRSD: ? 84 ? T: ?-5 QT: ? 374 ? QTc: ?423 ? Interpretive Statements ? SINUS RHYTHM LOW QRS VOLTAGE IN PRECORDIAL LEADS Electronically Signed On 05-20-2018 9:10:48 SHEARER SCREEN MEASURER AND TRIMMER by Percy Alaniz Procedure Note Percy Alaniz MD - 06/15/2021 Stationary ECG Study [facility] Test Date: 05/19/2018 2:29 PM Pat Name: CASANDRA DOSS Department: 6 Room: 6311 Gender: F Screen Room Operator: geoff : 1975 Requested By: EVA FOREMAN Order Number: [id number] [place] MD: Percy Alaniz Measurements Intervals [place] Rate: 76 P: 34 ID: 164 QRS: 24 QRSD: 84 T: -5 QT: 374 QTc: 423 Interpretive Statements SINUS RHYTHM LOW QRS VOLTAGE IN PRECORDIAL LEADS Electronically Signed On 05-20-2018 9:10:48 SHEARER SCREEN MEASURER AND TRIMMER by Percy Alaniz Manan Dumont MD ECG ORDERABLES INTERFACE SYSTEM Refer to clinic/hospital department * (ABNORMAL) POC GLUCOSE (05/19/2018 11:55 AM SHEARER SCREEN MEASURER AND TRIMMER) GLUCOSE POC 114(H) 74 - 99 mg/dL 05/19/2018 12:08 PM SHEARER SCREEN MEASURER AND TRIMMER [facility] - [facility] COMMENT, GLU POC Notified RN/MD 05/19/2018 12:08 PM SHEARER SCREEN MEASURER AND TRIMMER [facility] - [facility] FRETTED INSTRUMENT MAKER HAND NAME POC JAYRO FUNG 05/19/2018 12:08 PM SHEARER SCREEN MEASURER AND TRIMMER [facility] - [facility] Whole blood specimen (specimen) 05/19/2018 11:55 AM SHEARER SCREEN MEASURER AND TRIMMER 05/19/2018 12:08 PM SHEARER SCREEN MEASURER AND TRIMMER Manan Dumont MD POINT OF CARE TEST ING Performing Organization Address [facility]/ZIP Co de Phone Number [facility] [employer] [facility] CLIA# [id number] [address] [place] [address] * (ABNORMAL) POC GLUCOSE (05/19/2018 7:58 AM SHEARER SCREEN MEASURER AND TRIMMER) GLUCOSE POC 164(H) 74 - 99 mg/dL 05/19/2018 8:11 AM SHEARER SCREEN MEASURER AND TRIMMER [facility] - [facility] FRETTED INSTRUMENT MAKER HAND NAME POC LYNNETTE DELACRUZ 05/19/2018 8:11 AM [facility] - [facility] Whole blood specimen (specimen) 05/19/2018 7:58 AM SHEARER SCREEN MEASURER AND TRIMMER 05/19/2018 8:11 AM SHEARER SCREEN MEASURER AND TRIMMER Manan Dumont MD POINT OF CARE TEST ING Performing Organization Address [facility]/ZIP Co de Phone Number [facility] [employer] [facility] CLIA# [id number] [address] [place] [address] * (ABNORMAL) COMPREHENSIVE METABOLIC PANEL (05/19/2018 5:37 AM SHEARER SCREEN MEASURER AND TRIMMER) SODIUM 144 136 - 145 mmol/L 05/19/2018 6:21 AM [facility] POTASSIUM 3.9 3.5 - 5.0 mmol/L 05/19/2018 6:21 AM SHEARER SCREEN MEASURER AND TRIMMER [facility] CHLORIDE 105 98 - 107 mmol/L 05/19/2018 6:21 AM [employer] SERVICES - [facility] CO2 25 22 - 29 mmol/L 05/19/2018 6:21 AM SHEARER SCREEN MEASURER AND TRIMMER [facility] - [facility] CALCIUM 9.1 8.6 - 10.2 mg/dL 05/19/2018 6:21 AM [facility] - [facility] BUN 2(L) 6 - 20 mg/dL 05/19/2018 6:21 AM SHEARER SCREEN MEASURER AND TRIMMER [facility] - [facility] CREATININE 0.51 0.51 - 0.95 mg/dL 05/19/2018 6:21 AM [employer] SERVICES - [facility] GLUCOSE 167(H) 74 - 99 mg/dL 05/19/2018 6:21 AM SHEARER SCREEN MEASURER AND TRIMMER [facility] - [facility] TOTAL PROTEIN 5.2(L) 6.7 - 8.6 g/dL 05/19/2018 6:21 AM [facility] ALBUMIN 4.0 3.5 - 5.2 g/dL 05/19/2018 6:21 AM [facility] BILIRUBIN TOTAL 0.4 0.3 - 1.2 mg/dL 05/19/2018 6:21 AM [facility] ALKALINE PHOSPHATASE 24(L) 35 - 104 U/L 05/19/2018 6:21 AM [employer] [facility] - [facility] AST 13 <33 U/L 05/19/2018 6:21 AM [facility] ALT 10 <34 U/L 05/19/2018 6:21 AM [employer] [facility] - . [facility] GFR >60 >=60 mL/min/1.7 3 sq meter 05/19/2018 6:21 AM [employer] [facility] - [facility] Comment: eGFR has [...] mL/min/1.7 3 sq meter 05/19/2018 6:21 AM [facility] [employer] [facility] ANION GAP 14 8 - 16 mmol/L 05/19/2018 6:21 AM [facility] [employer] [facility] Blood Venipuncture / Unknown 05/19/2018 5:37 AM SHEARER SCREEN MEASURER AND TRIMMER 05/19/2018 5:47 AM [facility] LABORATORY SERVICES - [facility] - 05/19/2018 6:21 AM SHEARER SCREEN MEASURER AND TRIMMER Samples containing indocyanine green cause interferences on Total and/or Direct Bilirubin and must not be measured. Loki Vences MD CHEMISTRY ORDERABLES [facility] [employer] [facility] CLIA# [id number] [address] [facility] [place] [place] [address] * (ABNORMAL) CBC WITH DIFFERENTIAL (05/19/2018 5:37 AM SHEARER SCREEN MEASURER AND TRIMMER) WBC 6.4 4.0 - 9.8 K/uL 05/19/2018 5:54 AM [facility] [employer] [facility] RBC 3.44(L) 3.90 - 4.90 M/uL 05/19/2018 5:54 AM [facility] [employer] [facility] HEMOGLOBIN 10.5(L) 11.8 - 14.8 g/dL 05/19/2018 5:54 AM [facility] [employer] [facility] HEMATOCRIT 31.9(L) 35.5 - 44.0 % 05/19/2018 5:54 AM [facility] [employer] [facility] MCV 92.7 82.0 - 99.0 fL 05/19/2018 5:54 AM [facility] [employer] [facility] MCH 30.5 27.2 - 32.6 pg 05/19/2018 5:54 AM [facility] [employer] [facility] MCHC 32.9 31.5 - 35.5 g/dL 05/19/2018 5:54 AM [facility] [employer] [facility] RDW 14.3 11.5 - 14.5 % 05/19/2018 5:54 AM [facility] [employer] [facility] RDW-STDEV 49.1(H) 37.1 - 48.7 fL 05/19/2018 5:54 AM [facility] - [facility] PLATELETS 163 140 - 350 K/uL 05/19/2018 5:54 AM [facility] - [facility] MPV 9.5 9.3 - 12.4 fL 05/19/2018 5:54 AM [facility] - [facility] NEUTROPHILS 63 % 05/19/2018 5:54 AM [facility] - [facility] LYMPHOCYTES 29 % 05/19/2018 5:54 AM [facility] - [facility] MONOCYTES 6 % 05/19/2018 5:54 AM SHEARER SCREEN MEASURER AND TRIMMER [facility] - [facility] EOSINOPHILS 1 % 05/19/2018 5:54 AM SHEARER SCREEN MEASURER AND TRIMMER [facility] - [facility] BASOPHILS 0 % 05/19/2018 5:54 AM [facility] - [facility] IMMATURE GRANULOCYTES 1 % 05/19/2018 5:54 AM [facility] - [facility] Comment:IG (Immature Granulo cyte) count includes Metamyelocytes, Myelocytes, and Promyelocytes NEUTROPHIL ABSOLUTE 3.99 1.90 - 7.00 K/uL 05/19/2018 5:54 AM [facility] - [facility] LYMPHOCYTE ABSOLUTE 1.82 0.70 - 4.50 K/uL 05/19/2018 5:54 AM [facility] - [facility] MONOCYTE ABSOLUTE 0.39 0.10 - 1.30 K/uL 05/19/2018 5:54 AM [facility] LABORATORY [employer] - [facility] EOSINOPHIL ABSOLUTE 0.08 0.00 - 0.70 K/uL 05/19/2018 5:54 AM SHEARER SCREEN MEASURER AND TRIMMER [employer] SERVICES - [facility] BASOPHILS ABSOLUTE 0.02 0.00 - 0.20 K/uL 05/19/2018 5:54 AM [facility] - [facility] IMMATURE GRANULOCYTES ABSOLUTE 0.05(H) 0.00 - 0.03 K/uL 05/19/2018 5:54 AM [facility] [employer] - [facility] Blood Venipuncture / Unknown 05/19/2018 5:37 AM SHEARER SCREEN MEASURER AND TRIMMER 05/19/2018 5:47 AM SHEARER SCREEN MEASURER AND TRIMMER Loki Vences MD HEMATOLOGY ORDERABLE S Performing Organization Address [facility]/ZIP Co de Phone Number [facility] [employer] [facility]# [id number] [address] [place] [address] * (ABNORMAL) TRIGLYCERIDE (05/19/2018 5:37 AM SHEARER SCREEN MEASURER AND TRIMMER) TRIGLYCERIDE 553(H) <150 mg/dL 05/19/2018 6:21 AM SHEARER SCREEN MEASURER AND TRIMMER [facility] [employer] [facility] Blood Venipuncture / Unknown 05/19/2018 5:37 AM SHEARER SCREEN MEASURER AND TRIMMER 05/19/2018 5:47 AM SHEARER SCREEN MEASURER AND TRIMMER Narrative [facility] [employer] [facility] - 05/19/2018 6:21 AM SHEARER SCREEN MEASURER AND TRIMMER TRIGLYCERIDES ? mg/dL Normal ?< 150 Borderline High ?150 - 199 High ? 200 - 499 Very High ? >= 500 Based on AHA/NCEP Guidelines. Loki Vences MD CHEMISTRY ORDERABLES Performing Organization Address [facility] Co de Phone Number [facility] [employer] [facility]# [id number] [address] [place] [address] * (ABNORMAL) POC GLUCOSE (05/19/2018 3:53 AM SHEARER SCREEN MEASURER AND TRIMMER) GLUCOSE POC 133(H) 74 - 99 mg/dL 05/19/2018 4:09 AM SHEARER SCREEN MEASURER AND TRIMMER [facility] [employer] [facility] FRETTED INSTRUMENT MAKER HAND NAME POC OPERATIONS AND MAINTENANCE MANAGER, VICTORIANO 05/19/2018 4:09 AM SHEARER SCREEN MEASURER AND TRIMMER [facility] Whole blood specimen (specimen) 05/19/2018 3:53 AM SHEARER SCREEN MEASURER AND TRIMMER 05/19/2018 4:09 AM SHEARER SCREEN MEASURER AND TRIMMER Manan Dumont MD POINT OF CARE TEST ING Performing Organization Address [facility]/ZIP Co de Phone Number [facility] [employer] [facility] [id number] [address] [place] [address] * (ABNORMAL) POC GLUCOSE (05/18/2018 11:55 PM SHEARER SCREEN MEASURER AND TRIMMER) GLUCOSE POC 133(H) 74 - 99 mg/dL 05/19/2018 12:07 AM SHEARER SCREEN MEASURER AND TRIMMER [facility] LABORATORY SERVICES [facility] FRETTED INSTRUMENT MAKER HAND NAME POC OPERATIONS AND MAINTENANCE MANAGER VICTORIANO 05/19/2018 12:07 AM SHEARER SCREEN MEASURER AND TRIMMER [facility] LABORATORY SERVICES [facility] Whole blood specimen (specimen) 05/18/2018 11:55 PM SHEARER SCREEN MEASURER AND TRIMMER 05/19/2018 12:07 AM SHEARER SCREEN MEASURER AND TRIMMER Manan Dumont MD POINT OF CARE TEST ING [facility] [employer] [facility] CLIA# [id number] [address] [place] [address] * (ABNORMAL) POC GLUCOSE (05/18/2018 8:00 PM SHEARER SCREEN MEASURER AND TRIMMER) GLUCOSE POC 152(H) 74 - 99 mg/dL 05/18/2018 8:16 PM SHEARER SCREEN MEASURER AND TRIMMER [facility] LABORATORY [facility] FRETTED INSTRUMENT MAKER HAND NAME POC OPERATIONS AND MAINTENANCE MANAGER DORA 05/18/2018 8:16 PM SHEARER SCREEN MEASURER AND TRIMMER [facility]ENTERDelishery Ltd[facility] LABORATORY SERVICES [facility] Whole blood specimen (specimen) 05/18/2018 8:00 PM SHEARER SCREEN MEASURER AND TRIMMER 05/18/2018 8:16 PM SHEARER SCREEN MEASURER AND TRIMMER Manan Dumont MD POINT OF CARE TEST ING [facility] [employer] [facility] CLIA# [id number] [address] [place] [address] * (ABNORMAL) TRIGLYCERIDE (05/18/2018 5:30 PM SHEARER SCREEN MEASURER AND TRIMMER) TRIGLYCERIDE 524(H) <150 mg/dL 05/18/2018 5:59 PM SHEARER SCREEN MEASURER AND TRIMMER [facility] LABORATORY SERVICES [facility] Blood Venipuncture / Unknown 05/18/2018 5:30 PM SHEARER SCREEN MEASURER AND TRIMMER 05/18/2018 5:33 PM SHEARER SCREEN MEASURER AND TRIMMER Narrative [facility] - 05/18/2018 5:59 PM SHEARER SCREEN MEASURER AND TRIMMER TRIGLYCERIDES ? mg/dL Normal ?< 150 Borderline High ?150 - 199 High ? 200 - 499 Very High ? >= 500 Based on AHA/NCEP Guidelines. Loki Vences MD CHEMISTRY ORDERABLES Performing Organization Address [facility] de Phone Number [facility]# [id number] [address] [place] [address] * (ABNORMAL) POC GLUCOSE (05/18/2018 2:01 PM SHEARER SCREEN MEASURER AND TRIMMER) GLUCOSE POC 158(H) 74 - 99 mg/dL 05/18/2018 2:13 PM SHEARER SCREEN MEASURER AND TRIMMER [facility] FRETTED INSTRUMENT MAKER HAND NAME POC NINA BARBER 05/18/2018 2:13 PM SHEARER SCREEN MEASURER AND TRIMMER [facility] [employer] [facility] Whole blood specimen (specimen) 05/18/2018 2:01 PM SHEARER SCREEN MEASURER AND TRIMMER 05/18/2018 2:13 PM [employer]AR[employer] SCREEN MEASURER AND TRIMMER Manan Dumont MD POINT OF CARE TEST ING Performing Organization Address [facility] Phone Number [facility]# [id number] [address] [place] [address] * (ABNORMAL) POC GLUCOSE (05/18/2018 12:14 PM [employer]AR[employer] SCREEN MEASURER AND TRIMMER) GLUCOSE POC 132(H) 74 - 99 mg/dL 05/18/2018 12:31 PM SHEARER SCREEN MEASURER AND TRIMMER [facility] F[employer]TTED INSTRUMENT MAKER HAND NAME POC IRCKI EDUARDO 05/18/2018 12:31 PM SHEARER SCREEN MEASURER AND TRIMMER [facility] [employer] [facility] Whole blood specimen (specimen) 05/18/2018 12:14 PM SHEARER SCREEN MEASURER AND TRIMMER 05/18/2018 12:31 PM SHEARER SCREEN MEASURER AND TRIMMER Manan Dumont MD POINT OF CARE TEST ING Performing Organization Address [facility]/ZIP Co de Phone Number [facility] [employer] [facility]# [id number] [address] [place] [address] * (ABNORMAL) POC GLUCOSE (05/18/2018 10:35 AM SHEARER SCREEN MEASURER AND TRIMMER) GLUCOSE POC 132(H) 74 - 99 mg/dL 05/18/2018 10:49 AM SHEARER SCREEN MEASURER AND TRIMMER [employer] [facility] [employer] HAND NAME POC RICKI EDUARDO 05/18/2018 10:49 AM SHEARER SCREEN MEASURER AND TRIMMER [employer] [facility] Whole blood specimen (specimen) 05/18/2018 10:35 AM SHEARER SCREEN MEASURER AND TRIMMER 05/18/2018 10:49 AM SHEARER SCREEN MEASURER AND TRIMMER Manan Dumont MD POINT OF CARE TEST ING Performing Organization Address [facility] Co de Phone Number [employer] [facility]# [id number] [address] [place] [address] * PROTIME-INR (05/18/2018 9:14 AM SHEARER SCREEN MEASURER AND TRIMMER) PROTIME 13.8 12.7 - 15.1 Seconds 05/18/2018 9:45 AM SHEARER SCREEN MEASURER AND TRIMMER [employer] [facility] INR 1.1 0.9 - 1.1 05/18/2018 9:45 AM [facility] [employer] [facility] Blood Venipuncture / Unknown 05/18/2018 9:14 AM SHEARER SCREEN MEASURER AND TRIMMER 05/18/2018 9:20 AM SHEARER SCREEN MEASURER AND TRIMMER Narrative [employer] [facility] - [facility] - 05/18/2018 9:45 AM SHEARER SCREEN MEASURER AND TRIMMER INR Therapeutic Range: Adult: ?? 2.0 - 3.0 for pulmonary embolism or prophylaxis against venous ?thrombosis or systemic embolization. 2.0 - 3.0 for patients with tissue heart valves. 2.5 - 3.5 for patients with mechanical heart valves or post [place]. Pediatric ??(12 years and under): 1.5 - 3.0 Although the target range in children is not well established, ?INR values of 1.5 - 3.0 are recommended for most patients. ?Higher values have been used in children with prosthetic ?cardiac valves and hereditary clotting disorders. (<3 days) therapeutic ranges have not been established. Manan Dumont MD HEMATOLOGY ORDERAB LES Performing Organization Address [facility] de Phone Number [facility]# [id number] [address] [place] [address] * (ABNORMAL) POC GLUCOSE (05/18/2018 9:04 AM SHEARER SCREEN MEASURER AND TRIMMER) GLUCOSE POC 142(H) 74 - 99 mg/dL 05/18/2018 9:27 AM SHEARER SCREEN MEASURER AND TRIMMER [facility] [employer]UMENT MAKER HAND NAME OLLIE RICKI EDUARDO 05/18/2018 9:27 AM SHEARER SCREEN MEASURER AND TRIMMER [facility] Whole blood specimen (specimen) 05/18/2018 9:04 AM SHEARER SCREEN MEASURER AND TRIMMER 05/18/2018 9:27 AM SHEARER SCREEN MEASURER AND TRIMMER Manan Dumont MD POINT OF CARE TEST ING Performing Organization Address [facility] de Phone Number [facility] [employer] [facility]# [id number] [address] [place] [address] * (ABNORMAL) POC GLUCOSE (05/18/2018 8:12 AM SHEARER SCREEN MEASURER AND TRIMMER) GLUCOSE POC 148(H) 74 - 99 mg/dL 05/18/2018 8:25 AM SHEARER SCREEN MEASURER AND TRIMMER [facility] [employer] INSTRUMENT MAKER HAND NAME OLLIE RICKI EDUARDO 05/18/2018 8:25 AM SHEARER SCREEN MEASURER AND TRIMMER [facility] Whole blood specimen (specimen) 05/18/2018 8:12 AM SHEARER SCREEN MEASURER AND TRIMMER 05/18/2018 8:25 AM SHEARER SCREEN MEASURER AND TRIMMER Manan Dumont MD POINT OF CARE TEST ING [facility] CLIA# [id number] [address] [place] [address] * (ABNORMAL) COMPREHENSIVE METABOLIC PANEL (05/18/2018 6:03 AM SHEARER SCREEN MEASURER AND TRIMMER) SODIUM 139 136 - 145 mmol/L 05/18/2018 7:07 AM [facility] POTASSIUM 4.3 3.5 - 5.0 mmol/L 05/18/2018 7:07 AM [facility] CHLORIDE 103 98 - 107 mmol/L 05/18/2018 7:07 AM [facility] CO2 23 22 - 29 mmol/L 05/18/2018 7:07 AM [facility] CALCIUM 9.1 8.6 - 10.2 mg/dL 05/18/2018 7:07 AM [facility] BUN 3(L) 6 - 20 mg/dL 05/18/2018 7:07 AM [facility] CREATININE 0.53 0.51 - 0.95 mg/dL 05/18/2018 7:07 AM [facility] GLUCOSE 159(H) 74 - 99 mg/dL 05/18/2018 7:07 AM [facility] TOTAL PROTEIN 5.5(L) 6.7 - 8.6 g/dL 05/18/2018 7:07 AM [facility] ALBUMIN 3.9 3.5 - 5.2 g/dL 05/18/2018 7:07 AM [facility] BILIRUBIN TOTAL 0.3 0.3 - 1.2 mg/dL 05/18/2018 7:07 AM [facility] ALKALINE PHOSPHATASE 33(L) 35 - 104 U/L 05/18/2018 7:07 AM [facility] AST 13 <33 U/L 05/18/2018 7:07 AM SHEARER SCREEN MEASURER AND TRIMMER [facility] ALT 10 <34 U/L 05/18/2018 7:07 AM [facility] GFR >60 >=60 mL/min/1.7 3 sq meter 05/18/2018 7:07 AM [facility] [employer] [facility] Comment: eGFR has not [...] mL/min/1.7 3 sq meter 05/18/2018 7:07 AM [facility] [employer] [facility] ANION GAP 13 8 - 16 mmol/L 05/18/2018 7:07 AM [facility] [employer] [facility] Blood Venipuncture / Unknown 05/18/2018 6:03 AM [facility] 05/18/2018 6:11 AM [facility] [employer] [facility] - 05/18/2018 7:07 AM [facility] Samples containing indocyanine green cause interferences on Total and/or Direct Bilirubin and must not be measured. Loki Vences MD CHEMISTRY ORDERABLES [facility] [employer] [facility]# [id number] [address] [place] [address] * (ABNORMAL) CBC WITH DIFFERENTIAL (05/18/2018 6:03 AM SHEARER SCREEN MEASURER AND TRIMMER) Pathologist [facility] WBC 8.8 4.0 - 9.8 K/uL 05/18/2018 6:19 AM [facility] [employer] [facility] RBC 3.59(L) 3.90 - 4.90 M/uL 05/18/2018 6:19 AM [facility] [employer] [facility] HEMOGLOBIN 10.8(L) 11.8 - 14.8 g/dL 05/18/2018 6:19 AM [facility] [employer] [facility] HEMATOCRIT 33.7(L) 35.5 - 44.0 % 05/18/2018 6:19 AM [facility] MCV 93.9 82.0 - 99.0 fL 05/18/2018 6:19 AM [facility] MCH 30.1 27.2 - 32.6 pg 05/18/2018 6:19 AM [facility] MCHC 32.0 31.5 - 35.5 g/dL 05/18/2018 6:19 AM [facility] RDW 14.3 11.5 - 14.5 % 05/18/2018 6:19 AM SHEARER SCREEN MEASURER AND TRIMMER [facility] RDW-STDEV 49.7(H) 37.1 - 48.7 fL 05/18/2018 6:19 AM SHEARER SCREEN MEASURER AND TRIMMER [facility] PLATELETS 186 140 - 350 K/uL 05/18/2018 6:19 AM [facility] MPV 9.1(L) 9.3 - 12.4 fL 05/18/2018 6:19 AM SHEARER SCREEN MEASURER AND TRIMMER [facility] NEUTROPHILS 68 % 05/18/2018 6:19 AM SHEARER SCREEN MEASURER AND TRIMMER [facility] LYMPHOCYTES 24 % 05/18/2018 6:19 AM [facility] MONOCYTES 6 % 05/18/2018 6:19 AM [facility] EOSINOPHILS 1 % 05/18/2018 6:19 AM SHEARER SCREEN MEASURER AND TRIMMER [facility] BASOPHILS 0 % 05/18/2018 6:19 AM SHEARER SCREEN MEASURER AND TRIMMER [facility] IMMATURE GRANULOCYTES 1 % 05/18/2018 6:19 AM SHEARER SCREEN MEASURER AND TRIMMER [facility] Comment:IG (Immature Granulo cyte) count includes Metamyelocytes, Myelocytes, and Promyelocytes NEUTROPHIL ABSOLUTE 6.04 1.90 - 7.00 K/uL 05/18/2018 6:19 AM SHEARER SCREEN MEASURER AND TRIMMER [facility] LYMPHOCYTE ABSOLUTE 2.15 0.70 - 4.50 K/uL 05/18/2018 6:19 AM [facility] MONOCYTE ABSOLUTE 0.51 0.10 - 1.30 K/uL 05/18/2018 6:19 AM SHEARER SCREEN MEASURER AND TRIMMER [facility] EOSINOPHIL ABSOLUTE 0.05 0.00 - 0.70 K/uL 05/18/2018 6:19 AM [facility] BASOPHILS ABSOLUTE 0.02 0.00 - 0.20 K/uL 05/18/2018 6:19 AM [facility]OR[facility]ORY [facility] IMMATURE GRANULOCYTES ABSOLUTE 0.07(H) 0.00 - 0.03 K/uL 05/18/2018 6:19 AM [facility] [employer] [facility] Blood Venipuncture / Unknown 05/18/2018 6:03 AM SHEARER SCREEN MEASURER AND TRIMMER 05/18/2018 6:11 AM SHEARER SCREEN MEASURER AND TRIMMER Loki Vences MD HEMATOLOGY ORDERABLE S Performing Organization Address [facility] Co de Phone Number [facility]# [id number] [address] [place] [address] * (ABNORMAL) TRIGLYCERIDE (05/18/2018 6:03 AM SHEARER SCREEN MEASURER AND TRIMMER) TRIGLYCERIDE 955(H) <150 mg/dL 05/18/2018 7:21 AM [facility] [employer] [facility] Blood Venipuncture / Unknown 05/18/2018 6:03 AM [facility] 05/18/2018 6:11 AM SHEARER SCREEN MEASURER AND TRIMMER Narrative [facility] [employer] [facility] - 05/18/2018 7:21 AM SHEARER SCREEN MEASURER AND TRIMMER TRIGLYCERIDES ? mg/dL Normal ?< 150 Borderline High ?150 - 199 High ? 200 - 499 Very High ? >= 500 Based on AHA/NCEP Guidelines. Loki Vences MD CHEMISTRY ORDERABLES Performing Organization Address [facility] Co de Phone Number [facility]# [id number] [address] [place] [address] * (ABNORMAL) POC GLUCOSE (05/18/2018 5:09 AM SHEARER SCREEN MEASURER AND TRIMMER) GLUCOSE POC 160(H) 74 - 99 mg/dL 05/18/2018 5:21 AM SHEARER SCREEN MEASURER AND TRIMMER [facility] F[employer] INSTRUMENT MAKER HAND NAME KENIA LYON 05/18/2018 5:21 AM SHEARER SCREEN MEASURER AND TRIMMER [facility] Whole blood specimen (specimen) 05/18/2018 5:09 AM SHEARER SCREEN MEASURER AND TRIMMER 05/18/2018 5:21 AM SHEARER SCREEN MEASURER AND TRIMMER Manan Dumont MD POINT OF CARE TEST ING Performing Organization Address [facility] Co de Phone Number [facility] CLIA# [id number] [address], [place] [address] * (ABNORMAL) POC GLUCOSE (05/18/2018 4:04 AM SHEARER SCREEN MEASURER AND TRIMMER) GLUCOSE POC 179(H) 74 - 99 mg/dL 05/18/2018 4:17 AM SHEARER SCREEN MEASURER AND TRIMMER [facility] FRETTED INSTRUMENT MAKER HAND NAME KENIA LYON 05/18/2018 4:17 AM SHEARER SCREEN MEASURER AND TRIMMER [facility]ORATORY SERVICES [facility] Whole blood specimen (specimen) 05/18/2018 4:04 AM SHEARER SCREEN MEASURER AND TRIMMER 05/18/2018 4:17 AM SHEARER SCREEN MEASURER AND TRIMMER Manan Dumont MD POINT OF CARE TEST ING Performing Organization Address [facility] Co de Phone Number [facility] [employer] [facility] CLIA# [id number] [address] [place] [address] * (ABNORMAL) POC GLUCOSE (05/18/2018 3:04 AM SHEARER SCREEN MEASURER AND TRIMMER) GLUCOSE POC 168(H) 74 - 99 mg/dL 05/18/2018 3:20 AM SHEARER SCREEN MEASURER AND TRIMMER [facility] FRETTED INSTRUMENT MAKER HAND NAME KENIA LYON 05/18/2018 3:20 AM SHEARER SCREEN MEASURER AND TRIMMER [facility] LABORAT[facility] Whole blood specimen (specimen) 05/18/2018 3:04 AM SHEARER SCREEN MEASURER AND TRIMMER 05/18/2018 3:20 AM SHEARER SCREEN MEASURER AND TRIMMER Manan Dumont MD POINT OF CARE TEST ING Performing Organization Address [facility]/ZIP Co de Phone Number [facility] [employer] [facility] [id number] [address] [place] [address] * (ABNORMAL) POC GLUCOSE (05/18/2018 2:06 AM SHEARER SCREEN MEASURER AND TRIMMER) GLUCOSE POC 148(H) 74 - 99 mg/dL 05/18/2018 2:18 AM SHEARER SCREEN MEASURER AND TRIMMER [facility] FRETTED INSTRUMENT MAKER HAND NAME KENIA LYON 05/18/2018 2:18 AM SHEARER SCREEN MEASURER AND TRIMMER [facility] Whole blood specimen (specimen) 05/18/2018 2:06 AM SHEARER SCREEN MEASURER AND TRIMMER 05/18/2018 2:18 AM SHEARER SCREEN MEASURER AND TRIMMER Manan Dumont MD POINT OF CARE TEST ING Performing Organization Address [facility] Co de Phone Number [facility] [employer] [facility] CLIA# [id number] [address] [place] [address] * (ABNORMAL) POC GLUCOSE (05/18/2018 1:05 AM SHEARER SCREEN MEASURER AND TRIMMER) GLUCOSE POC 150(H) 74 - 99 mg/dL 05/18/2018 1:18 AM SHEARER SCREEN MEASURER AND TRIMMER [facility] LAB[facility] FRETTED INSTRUMENT MAKER HAND NAME KENIA LYON 05/18/2018 1:18 AM SHEARER SCREEN MEASURER AND TRIMMER [facility] Whole blood specimen (specimen) 05/18/2018 1:05 AM SHEARER SCREEN MEASURER AND TRIMMER 05/18/2018 1:18 AM SHEARER SCREEN MEASURER AND TRIMMER Manan Dumont MD POINT OF CARE TEST ING Performing Organization Address [facility]/ZIP Co de Phone Number [facility] [employer] [facility] CLIA# [id number] [address] [place] [address] * (ABNORMAL) POC GLUCOSE (05/18/2018 12:01 AM SHEARER SCREEN MEASURER AND TRIMMER) GLUCOSE POC 138(H) 74 - 99 mg/dL 05/18/2018 12:17 AM SHEARER SCREEN MEASURER AND TRIMMER [facility] LAB[facility]ORY [facility] FRE[employer]ED INSTRUMENT MAKER HAND NAME KENIA LYON 05/18/2018 12:17 AM SHEARER SCREEN MEASURER AND TRIMMER [facility] LAB[facility] Whole blood specimen (specimen) 05/18/2018 12:01 AM SHEARER SCREEN MEASURER AND TRIMMER 05/18/2018 12:17 AM SHEARER SCREEN MEASURER AND TRIMMER Manan Dumont MD POINT OF CARE TEST ING Performing Organization Address [facility]/ZIP Co de Phone Number [facility] [employer] [facility]# [id number] [address] [place] [address] * (ABNORMAL) POC GLUCOSE (05/17/2018 11:05 PM SHEARER SCREEN MEASURER AND TRIMMER) GLUCOSE POC 137(H) 74 - 99 mg/dL 05/17/2018 11:21 PM SHEARER SCREEN MEASURER AND TRIMMER [facility] LAB[facility] FRETTED INSTRUMENT MAKER HAND NAME KENIA LYON 05/17/2018 11:21 PM SHEARER SCREEN MEASURER AND TRIMMER [facility] Whole blood specimen (specimen) 05/17/2018 11:05 PM SHEARER SCREEN MEASURER AND TRIMMER 05/17/2018 11:21 PM SHEARER SCREEN MEASURER AND TRIMMER Manan Dumont MD POINT OF CARE TEST ING Performing Organization Address [facility] Co de Phone Number [facility] [employer] [facility] CLIA# [id number] [address] [place] [address] * (ABNORMAL) POC GLUCOSE (05/17/2018 10:04 PM SHEARER SCREEN MEASURER AND TRIMMER) GLUCOSE POC 153(H) 74 - 99 mg/dL 05/17/2018 10:20 PM SHEARER SCREEN MEASURER AND TRIMMER [facility] FRETTED INSTRUMENT MAKER HAND NAME KENIA LYON 05/17/2018 10:20 PM SHEARER SCREEN MEASURER AND TRIMMER [facility] Whole blood specimen (specimen) 05/17/2018 10:04 PM SHEARER SCREEN MEASURER AND TRIMMER 05/17/2018 10:20 PM SHEARER SCREEN MEASURER AND TRIMMER Manan Dumont MD POINT OF CARE TEST ING Performing Organization Address [facility]/ZIP Co de Phone Number [facility] [employer] [facility]# [id number] [address] [place] [address] * (ABNORMAL) POC GLUCOSE (05/17/2018 9:01 PM SHEARER SCREEN MEASURER AND TRIMMER) GLUCOSE POC 164(H) 74 - 99 mg/dL 05/17/2018 9:12 PM SHEARER SCREEN MEASURER AND TRIMMER [facility] LABORATORY [facility] F[employer] INSTRUMENT MAKER HAND NAME KENIA LYON 05/17/2018 9:12 PM SHEARER SCREEN MEASURER AND TRIMMER [facility] Whole blood specimen (specimen) 05/17/2018 9:01 PM SHEARER SCREEN MEASURER AND TRIMMER 05/17/2018 9:12 PM SHEARER SCREEN MEASURER AND TRIMMER Manan Dumont MD POINT OF CARE TEST ING Performing Organization Address [facility] Co de Phone Number [facility] [employer] [facility]# [id number] [address] [place] [address] * (ABNORMAL) POC GLUCOSE (05/17/2018 8:03 PM SHEARER SCREEN MEASURER AND TRIMMER) GLUCOSE POC 157(H) 74 - 99 mg/dL 05/17/2018 8:15 PM SHEARER SCREEN MEASURER AND TRIMMER [facility] LABORATORY [facility] F[employer] INSTRUMENT MAKER HAND NAME KENIA LYON 05/17/2018 8:15 PM SHEARER SCREEN MEASURER AND TRIMMER [facility] Whole blood specimen (specimen) 05/17/2018 8:03 PM SHEARER SCREEN MEASURER AND TRIMMER 05/17/2018 8:15 PM SHEARER SCREEN MEASURER AND TRIMMER Manan Dumont MD POINT OF CARE TEST ING Performing Organization Address [facility]/ZIP Co de Phone Number [facility] [employer] [facility]# [id number] [address] [place] [address] * (ABNORMAL) POC GLUCOSE (05/17/2018 7:04 PM SHEARER SCREEN MEASURER AND TRIMMER) GLUCOSE POC 142(H) 74 - 99 mg/dL 05/17/2018 7:19 PM SHEARER SCREEN MEASURER AND TRIMMER [facility] LABORATORY [facility] F[employer]ED INSTRUMENT MAKER HAND NAME POC KENIA QUIROZ 05/17/2018 7:19 PM SHEARER SCREEN MEASURER AND TRIMMER [facility] LABORATORY [facility] Whole blood specimen (specimen) 05/17/2018 7:04 PM SHEARER SCREEN MEASURER AND TRIMMER 05/17/2018 7:19 PM SHEARER SCREEN MEASURER AND TRIMMER Manan Dumont MD POINT OF CARE TEST ING Performing Organization Address [facility] Co de Phone Number [facility]# [id number] [address] [place] [address] * (ABNORMAL) POC GLUCOSE (05/17/2018 6:07 PM SHEARER SCREEN MEASURER AND TRIMMER) GLUCOSE POC 131(H) 74 - 99 mg/dL 05/17/2018 6:19 PM SHEARER SCREEN MEASURER AND TRIMMER [facility] LABORATORY [facility] [employer] IN[employer]KER HAND NAME POC NINA BARBER 05/17/2018 6:19 PM SHEARER SCREEN MEASURER AND TRIMMER [facility] LABORATORY [facility] Whole blood specimen (specimen) 05/17/2018 6:07 PM SHEARER SCREEN MEASURER AND TRIMMER 05/17/2018 6:19 PM SHEARER SCREEN MEASURER AND TRIMMER Manan Dumont MD POINT OF CARE TEST ING Performing Organization Address [facility] Co de Phone Number [facility] [employer] [facility]# [id number] [address] [place] [address] * (ABNORMAL) TRIGLYCERIDE (05/17/2018 4:46 PM SHEARER SCREEN MEASURER AND TRIMMER) TRIGLYCERIDE 939(H) <150 mg/dL 05/17/2018 5:36 PM SHEARER SCREEN MEASURER AND TRIMMER [facility] LABORATORY [facility] Blood Venipuncture / Unknown 05/17/2018 4:46 PM SHEARER SCREEN MEASURER AND TRIMMER 05/17/2018 4:51 PM SHEARER SCREEN MEASURER AND TRIMMER Narrative [facility] LABORATORY [facility] - 05/17/2018 5:36 PM SHEARER SCREEN MEASURER AND TRIMMER TRIGLYCERIDES ? mg/dL Normal ?< 150 Borderline High ?150 - 199 High ? 200 - 499 Very High ? >= 500 Based on AHA/NCEP Guidelines. Loki Vences MD CHEMISTRY ORDERABLES Performing Organization Address [facility]/ZIP Co de Phone Number [facility] LABORATORY [facility]# [id number] [address] [place] [address] * (ABNORMAL) POC GLUCOSE (05/17/2018 3:57 PM SHEARER SCREEN MEASURER AND TRIMMER) GLUCOSE POC 114(H) 74 - 99 mg/dL 05/17/2018 4:09 PM SHEARER SCREEN MEASURER AND TRIMMER [facility] LABORATORY SERVICES [facility] [employer] IN[employer]KER HAND NAME POC LOLY EAGLE 05/17/2018 4:09 PM SHEARER SCREEN MEASURER AND TRIMMER [facility] Whole blood specimen (specimen) 05/17/2018 3:57 PM SHEARER SCREEN MEASURER AND TRIMMER 05/17/2018 4:09 PM SHEARER SCREEN MEASURER AND TRIMMER Manan Dumont MD POINT OF CARE TEST ING Performing Organization Address [facility] Co de Phone Number [facility] [employer] [facility]# [id number] [address] [place] [address] * (ABNORMAL) POC GLUCOSE (05/17/2018 3:00 PM SHEARER SCREEN MEASURER AND TRIMMER) GLUCOSE POC 116(H) 74 - 99 mg/dL 05/17/2018 3:13 PM SHEARER SCREEN MEASURER AND TRIMMER [facility] LABORATORY [facility] [employer] INSTRUMENT MAKER HAND NAME POC ACE EDUARDOS 05/17/2018 3:13 PM SHEARER SCREEN MEASURER AND TRIMMER [facility] Whole blood specimen (specimen) 05/17/2018 3:00 PM SHEARER SCREEN MEASURER AND TRIMMER 05/17/2018 3:13 PM SHEARER SCREEN MEASURER AND TRIMMER Manan Dumont MD POINT OF CARE TEST ING Performing Organization Address [facility] Co de Phone Number [facility] LABORATORY [facility]# [id number] [address] [place] [address] * (ABNORMAL) POC GLUCOSE (05/17/2018 1:58 PM SHEARER SCREEN MEASURER AND TRIMMER) GLUCOSE POC 107(H) 74 - 99 mg/dL 05/17/2018 2:12 PM SHEARER SCREEN MEASURER AND TRIMMER [facility] [employer] HAND NAME RICKI SINGH 05/17/2018 2:12 PM SHEARER SCREEN MEASURER AND TRIMMER [facility] Whole blood specimen (specimen) 05/17/2018 1:58 PM SHEARER SCREEN MEASURER AND TRIMMER 05/17/2018 2:12 PM SHEARER SCREEN MEASURER AND TRIMMER Manan Dumont MD POINT OF CARE TEST ING Performing Organization Address [facility]/ZIP Co de Phone Number [facility] [employer] [facility]# [id number] [address] [place] [address] * (ABNORMAL) POC GLUCOSE (05/17/2018 12:52 PM SHEARER SCREEN MEASURER AND TRIMMER) GLUCOSE POC 126(H) 74 - 99 mg/dL 05/17/2018 1:04 PM SHEARER SCREEN MEASURER AND TRIMMER [facility] [employer] HAND NAME RICKI SINGH 05/17/2018 1:04 PM SHEARER SCREEN MEASURER AND TRIMMER [facility] Whole blood specimen (specimen) 05/17/2018 12:52 PM SHEARER SCREEN MEASURER AND TRIMMER 05/17/2018 1:04 PM SHEARER SCREEN MEASURER AND TRIMMER Manan Dumont MD POINT OF CARE TEST ING Performing Organization Address [facility]/ZIP Co de Phone Number [facility] [employer] [facility]# [id number] [address] [place] [address] * XR CHEST PA OR AP 1 VW (05/17/2018 12:43 PM SHEARER SCREEN MEASURER AND TRIMMER) Anatomical Region Laterality Modality Chest Computed Radiogr aphy 05/17/2018 12:4 3 PM SHEARER SCREEN MEASURER AND TRIMMER Impressions 05/17/2018 1:03 PM SHEARER SCREEN MEASURER AND TRIMMER IMPRESSION: 1. Right-sided internal jugular central venous catheter with distal tip projected over the cavoatrial junction/proximal right atrium. 2. No pneumothorax or acute cardiopulmonary pathology. 3. Hypoventilation with vascular crowding. DICTATION LOCATION: Location [address] [place] [address] Narrative 05/17/2018 1:03 PM SHEARER SCREEN MEASURER AND TRIMMER AP VIEW OF THE CHEST ?? DATE: [...] are without acute abnormality. Procedure Note Mindi Brayd, DO - 05/17/2018 AP VIEW OF THE [...] Hypoventilation with vascular crowding. DICTATION LOCATION: Location [address] [place] [address] Manan Dumont MD DIAGNOSTIC IMAGING ORDERABLES * (ABNORMAL) POC GLUCOSE (05/17/2018 11:43 AM SHEAR[employer] SCRE[employer] MEASURER [employer] TRIMMER) GLUCOSE POC 118(H) 74 - 99 mg/dL 05/17/2018 12:17 PM [facility] LABOR[facility]ORY SERVICES [facility] [employer] HAND NAME POC RICKI EDUARDO 05/17/2018 12:17 PM [facility] Whole blood specimen (specimen) 05/17/2018 11:43 AM SHE[employer] SCREEN MEASURER [employer] TRIMMER 05/17/2018 12:17 PM SHEAR[employer] SCREEN MEASURER AND TRIMMER Manan Dumont MD POINT OF CARE TEST ING Performing Organization Address City/[facility]/ZIP Co de Phone Number [facility] [employer] [facility]# [id number] [address] [place] [address] * POC GLUCOSE (05/17/2018 10:47 AM SHEARER SCREEN MEASURER AND TRIMMER) GLUCOSE POC 76 74 - 99 mg/dL 05/17/2018 12:17 PM SHE[employer] SCRE[employer] MEASURER [employer] TRIMMER [facility] LABORATORY SERVICES [facility] [employer] HAND NAME NINA LIEBERMAN 05/17/2018 12:17 PM SHEARER SCREEN MEASURER AND TRIMMER [facility] LABORATORY SERVICES [facility] Whole blood specimen (specimen) 05/17/2018 10:47 AM SHE[employer] SCREEN MEASURER AND TRIMMER 05/17/2018 12:17 PM SHEARER SCREEN MEASURER AND TRIMMER Manan Dumont MD POINT OF CARE TEST ING Performing Organization Address [facility]/ZIP Co de Phone Number [facility] [employer] [facility]# [id number] [address] [place] [address] * (ABNORMAL) POC GLUCOSE (05/17/2018 10:26 AM SHEARER SCREEN MEASURER AND TRIMMER) GLUCOSE POC 56(L) 74 - 99 mg/dL 05/17/2018 12:17 PM SHEARER SCRE[employer] MEASURER [employer] TRIMMER [facility] LABORATORY SERVICES [facility] COMMENT, GLU POC Notified RN/MD 05/17/2018 12:17 PM SHEARER SCRE[employer] MEASURER [employer] TRIMMER [facility] LABORATORY SERVICES [facility] [employer] HAND NAME POC NINA BARBER 05/17/2018 12:17 PM SHEARER SCREEN MEASURER AND TRIMMER [facility] LAB[facility]ATORY [facility] Whole blood specimen (specimen) 05/17/2018 10:26 AM SHEARER SCREEN MEASURER AND TRIMMER 05/17/2018 12:17 PM SHEARER SCREEN MEASURER AND TRIMMER Manan Dumont MD POINT OF CARE TEST ING Performing Organization Address [facility]/ZIP Co de Phone Number [facility] [employer] [facility]# [id number] [address] [place] [address] * POC GLUCOSE (05/17/2018 9:05 AM SHEARER SCREEN MEASURER AND TRIMMER) GLUCOSE POC 91 74 - 99 mg/dL 05/17/2018 9:17 AM [facility] [employer] HAND NAME NINA LIEBERMAN 05/17/2018 9:17 AM SHEARER SCREEN MEASURER AND TRIMMER [facility] LABORATORY SERVICES [facility] Whole blood specimen (specimen) 05/17/2018 9:05 AM SHEARER SCREEN MEASURER AND TRIMMER 05/17/2018 9:17 AM SHEARER SCREEN MEASURER AND TRIMMER Manan Dumont MD POINT OF CARE TEST ING Performing Organization Address [facility]/ZIP Co de Phone Number [facility] [employer] [facility] CLIA# [id number] [address] [place] [address] * (ABNORMAL) POC GLUCOSE (05/17/2018 7:52 AM SHEARER SCREEN MEASURER AND TRIMMER) GLUCOSE POC 133(H) 74 - 99 mg/dL 05/17/2018 8:24 AM [facility] SERVICES [facility] [employer]UMENT [employer] HAND NAME NINA LIEBERMAN 05/17/2018 8:24 AM [facility]ORY SERVICES [facility] Whole blood specimen (specimen) 05/17/2018 7:52 AM SHEARER SCREEN MEASURER AND TRIMMER 05/17/2018 8:24 AM SHEARER SCREEN MEASURER AND TRIMMER Loki Vences MD POINT OF CARE TESTIN G Performing Organization Address City/[facility]/ZIP Co de Phone Number [facility] LABORATORY [facility]# [id number] [address] [place] [address] * (ABNORMAL) POC GLUCOSE (05/17/2018 7:02 AM SHEARER SCREEN MEASURER AND TRIMMER) GLUCOSE POC 133(H) 74 - 99 mg/dL 05/17/2018 7:21 AM SHEARER SCREEN MEASURER AND TRIMMER [facility] LABORATORY SERVICES [facility] [employer] HAND NAME LIGIA BROOKS 05/17/2018 7:21 AM SHEARER SCREEN MEASURER AND TRIMMER [facility] Whole blood specimen (specimen) 05/17/2018 7:02 AM SHEARER SCREEN MEASURER AND TRIMMER 05/17/2018 7:21 AM SHEARER SCREEN MEASURER AND TRIMMER Loki Vences MD POINT OF CARE TESTIN Maggie Performing Organization Address [facility]/ZIP Co de Phone Number [facility] [employer] [facility]# [id number] [address] [place] [address] * (ABNORMAL) POC GLUCOSE (05/17/2018 6:03 AM SHEARER SCREEN MEASURER AND TRIMMER) GLUCOSE POC 118(H) 74 - 99 mg/dL 05/17/2018 6:16 AM SHEARER SCREEN MEASURER AND TRIMMER [facility] LABORATORY [facility] [employer]UMENT MAKER HAND NAME LIGIA BROOKS 05/17/2018 6:16 AM SHEARER SCREEN MEASURER AND TRIMMER [facility] Whole blood specimen (specimen) 05/17/2018 6:03 AM SHEARER SCREEN MEASURER AND TRIMMER 05/17/2018 6:16 AM SHEARER SCREEN MEASURER AND TRIMMER Loki Vences MD POINT OF CARE TESTJERONIMO Maggie Performing Organization Address [facility] Co de Phone Number [facility] [employer] [facility]# [id number] [address] [place] [address] * (ABNORMAL) POC GLUCOSE (05/17/2018 4:58 AM SHEARER SCREEN MEASURER AND TRIMMER) GLUCOSE POC 108(H) 74 - 99 mg/dL 05/17/2018 5:18 AM SHEARER SCREEN MEASURER AND TRIMMER [facility] LABORATORY [facility] F[employer] INSTRUMENT MAKER HAND NAME LIGIA BROOKS 05/17/2018 5:18 AM SHEARER SCREEN MEASURER AND TRIMMER [facility] Whole blood specimen (specimen) 05/17/2018 4:58 AM SHEARER SCREEN MEASURER AND TRIMMER 05/17/2018 5:18 AM SHEARER SCREEN MEASURER AND TRIMMER Loki Vences MD POINT OF CARE TESTIN Maggie Performing Organization Address [facility]/ZIP Co de Phone Number [facility] [employer] [facility]# [id number] [address] [place] [address] * (ABNORMAL) POC GLUCOSE (05/17/2018 4:10 AM SHEARER SCREEN MEASURER AND TRIMMER) GLUCOSE POC 113(H) 74 - 99 mg/dL 05/17/2018 4:29 AM SHEARER SCREEN MEASURER AND TRIMMER [facility] LABORATORY [facility] F[employer]UMENT MAKER HAND NAME POC LIGIA TREADWELL 05/17/2018 4:29 AM SHEARER SCREEN MEASURER AND TRIMMER [facility] LABORATORY [facility] Whole blood specimen (specimen) 05/17/2018 4:10 AM SHEARER SCREEN MEASURER AND TRIMMER 05/17/2018 4:29 AM SHEARER SCREEN MEASURER AND TRIMMER Loki Vences MD POINT OF CARE TESTIN G Performing Organization Address [facility]/ZIP Co de Phone Number [facility] CLIA# [id number] [address] [place] [address] * (ABNORMAL) POC GLUCOSE (05/17/2018 3:17 AM SHEARER SCREEN MEASURER AND TRIMMER) GLUCOSE POC 124(H) 74 - 99 mg/dL 05/17/2018 3:29 AM SHEARER SCREEN MEASURER AND TRIMMER [facility] LABORATORY [facility] F[employer] IN[employer]UMENT MAKER HAND NAME POC KENIA QUIROZ 05/17/2018 3:29 AM SHEARER SCREEN MEASURER AND TRIMMER [facility] Whole blood specimen (specimen) 05/17/2018 3:17 AM SHEARER SCREEN MEASURER AND TRIMMER 05/17/2018 3:29 AM SHEARER SCREEN MEASURER AND TRIMMER Loki Vences MD POINT OF CARE TESTIN G Performing Organization Address [facility] Co de Phone Number [facility] [employer] [facility] CLIA# [id number] [address] [place] [address] * POC GLUCOSE (05/17/2018 2:05 AM SHEARER SCREEN MEASURER AND TRIMMER) GLUCOSE POC 97 74 - 99 mg/dL 05/17/2018 2:19 AM SHEARER SCREEN MEASURER AND TRIMMER [facility] LABORATORY [facility] [employer] IN[employer]UMENT MAK[employer] HAND NAME KENIA LYON 05/17/2018 2:19 AM SHEARER SCREEN MEASURER AND TRIMMER [facility] LABORATORY [facility] Whole blood specimen (specimen) 05/17/2018 2:05 AM SHEARER SCREEN MEASURER AND TRIMMER 05/17/2018 2:19 AM SHEARER SCREEN MEASURER AND TRIMMER Loki Vences MD POINT OF CARE TESTIN G [employer] SERVICES - [facility] CLIA# [id number] [address] [place] [address] * (ABNORMAL) COMPREHENSIVE METABOLIC PANEL (05/17/2018 1:21 AM SHEARER SCREEN MEASURER AND TRIMMER) SODIUM 136 136 - 145 mmol/L 05/17/2018 2:34 AM [facility] [employer] [facility] POTASSIUM 4.1 3.5 - 5.0 mmol/L 05/17/2018 2:34 AM [facility] [employer] [facility] Comment: Moderate hemolysis present. ??Can cause significant falsely elevated result. ??Clinical judgement necessary. ??Redraw if indicated. CHLORIDE 100 98 - 107 mmol/L 05/17/2018 2:34 AM [facility] [employer] [facility] CO2 24 22 - 29 mmol/L 05/17/2018 2:34 AM [facility] [employer] [facility] CALCIUM 8.3(L) 8.6 - 10.2 mg/dL 05/17/2018 2:34 AM [facility] [employer] [facility] BUN 9 6 - 20 mg/dL 05/17/2018 2:34 AM [facility] [employer] [facility] CREATININE 0.47(L) 0.51 - 0.95 mg/dL 05/17/2018 2:34 AM [facility] [employer] [facility] GLUCOSE 108(H) 74 - 99 mg/dL 05/17/2018 2:34 AM [facility] [employer] [facility] TOTAL PROTEIN 5.7(L) 6.7 - 8.6 g/dL 05/17/2018 2:34 AM [facility] [employer] [facility] ALBUMIN 3.5 3.5 - 5.2 g/dL 05/17/2018 2:34 AM [facility] [employer] [facility] BILIRUBIN TOTAL <0.2(L) 0.3 - 1.2 mg/dL 05/17/2018 2:34 AM [facility] [employer] [facility] ALKALINE PHOSPHATASE 62 35 - 104 U/L 05/17/2018 2:34 AM [facility] [employer] [facility] AST 26 <33 U/L 05/17/2018 2:34 AM [facility] [employer] [facility] Comment: Cleared of chylomicrons. Hemolysis present. Result may be falsely elevated. ALT 17 <34 U/L 05/17/2018 2:34 AM [facility] Comment: Cleared of chylomicrons. Hemolysis present. Result may be falsely elevated. GFR >60 >=60 mL/min/1.7 3 sq meter 05/17/2018 2:34 AM [facility] Comment: eGFR [...] mL/min/1.7 3 sq meter 05/17/2018 2:34 AM [facility] [employer] [facility] ANION GAP 12 8 - 16 mmol/L 05/17/2018 2:34 AM [facility] [employer] [facility] Blood Venipuncture / Unknown 05/17/2018 1:21 AM SHEARER SCREEN MEASURER AND TRIMMER 05/17/2018 1:34 AM [facility] - 05/17/2018 2:34 AM [facility] Samples containing indocyanine green cause interferences on Total and/or Direct Bilirubin and must not be measured. Loki Vences MD CHEMISTRY ORDERABLES [facility] CLIA# [id number] [address] [place] [address] * (ABNORMAL) CBC WITH DIFFERENTIAL (05/17/2018 1:21 AM SHEARER SCREEN MEASURER AND TRIMMER) Pathologist [facility] WBC 8.4 4.0 - 9.8 K/uL 05/17/2018 1:41 AM [facility] [employer] [facility] RBC 3.54(L) 3.90 - 4.90 M/uL 05/17/2018 1:41 AM [facility] [employer] [facility] HEMOGLOBIN 11.0(L) 11.8 - 14.8 g/dL 05/17/2018 1:41 AM [facility] HEMATOCRIT 32.8(L) 35.5 - 44.0 % 05/17/2018 1:41 AM [facility] [employer] [facility] MCV 92.7 82.0 - 99.0 fL 05/17/2018 1:41 AM [facility] [employer] [facility] MCH 31.1 27.2 - 32.6 pg 05/17/2018 1:41 AM [facility] [employer] [facility] MCHC 33.5 31.5 - 35.5 g/dL 05/17/2018 1:41 AM [facility] [employer] [facility] RDW 14.3 11.5 - 14.5 % 05/17/2018 1:41 AM [facility] [employer] [facility] RDW-STDEV 49.0(H) 37.1 - 48.7 fL 05/17/2018 1:41 AM SHEARER SCREEN MEASURER AND TRIMMER [employer] [facility] PLATELETS 235 140 - 350 K/uL 05/17/2018 1:41 AM [facility] [employer] [facility] MPV 9.3 9.3 - 12.4 fL 05/17/2018 1:41 AM [facility] [employer] [facility] NEUTROPHILS 54 % 05/17/2018 1:41 AM [facility] [employer] [facility] LYMPHOCYTES 38 % 05/17/2018 1:41 AM SHEARER SCREEN MEASURER AND TRIMMER [employer] [facility] MONOCYTES 6 % 05/17/2018 1:41 AM SHEARER SCREEN MEASURER AND TRIMMER [employer] [facility] EOSINOPHILS 1 % 05/17/2018 1:41 AM SHEARER SCREEN MEASURER AND TRIMMER [employer] [facility] BASOPHILS 1 % 05/17/2018 1:41 AM SHEARER SCREEN MEASURER AND TRIMMER [employer] [facility] IMMATURE GRANULOCYTES 1 % 05/17/2018 1:41 AM [facility] [employer] [facility] Comment:IG (Immature Granulo cyte) count includes Metamyelocytes, Myelocytes, and Promyelocytes NEUTROPHIL ABSOLUTE 4.59 1.90 - 7.00 K/uL 05/17/2018 1:41 AM SHEARER SCREEN MEASURER AND TRIMMER [employer] [facility] LYMPHOCYTE ABSOLUTE 3.16 0.70 - 4.50 K/uL 05/17/2018 1:41 AM [facility] MONOCYTE ABSOLUTE 0.46 0.10 - 1.30 K/uL 05/17/2018 1:41 AM [facility] EOSINOPHIL ABSOLUTE 0.09 0.00 - 0.70 K/uL 05/17/2018 1:41 AM [facility] BASOPHILS ABSOLUTE 0.04 0.00 - 0.20 K/uL 05/17/2018 1:41 AM [facility] IMMATURE GRANULOCYTES ABSOLUTE 0.08(H) 0.00 - 0.03 K/uL 05/17/2018 1:41 AM [facility] Blood Venipuncture / Unknown 05/17/2018 1:21 AM SHEARER SCREEN MEASURER AND TRIMMER 05/17/2018 1:34 AM SHEAR[employer] SCRE[employer] MEASURER AND TRIMMER Loki Vences MD HEMATOLOGY ORDERABLE S Performing Organization Address City/[facility] Co de Phone Number [facility] [employer] [facility]# [id number] [address] [place] [address] * (ABNORMAL) TRIGLYCERIDE (05/17/2018 1:21 AM SHEARER SCREEN MEASURER AND TRIMMER) TRIGLYCERIDE 2,661(H) <150 mg/dL 05/17/2018 2:17 AM [facility] Blood Venipuncture / Unknown 05/17/2018 1:21 AM SHEARER SCREEN MEASURER AND TRIMMER 05/17/2018 1:34 AM SHEARER SCREEN MEASURER AND TRIMMER Narrative [facility] LAB[facility] - 05/17/2018 2:17 AM SHEARER SCREEN MEASURER [employer] TRIMMER TRIGLYCERIDES ? mg/dL Normal ?< 150 Borderline High ?150 - 199 High ? 200 - 499 Very High ? >= 500 Based on AHA/NCEP Guidelines. Loki Vences MD CHEMISTRY ORDERABLES Performing Organization Address [facility] Co de Phone Number [facility]# [id number] [address] [place] [address] * LACTIC ACID (05/16/2018 9:39 PM SHEARER SCREEN MEASURER AND TRIMMER) Pathologist [facility] LACTIC ACID 2.0 0.5 - 2.0 mmol/L 05/16/2018 10:15 PM SHEARER SCREEN MEASURER AND TRIMMER [facility] Blood Venipuncture / Unknown 05/16/2018 9:39 PM [employer] SCRE[employer] MEASURER [employer] TRIMMER 05/16/2018 9:47 PM [employer] SCRE[employer] MEASURER [employer] TRIMMER Loki Vences MD CHEMISTRY ORDERABLES Performing Organization Address [facility] Co de Phone Number [facility]# [id number] [address] [place] [address] * (ABNORMAL) HEMOGLOBIN A1C (05/16/2018 9:39 PM SHEAR[employer] SCREEN MEASURER AND TRIMMER) Pathologist [facility] HEMOGLOBIN A1C 8.0(H) <5.7 % 05/16/2018 10:11 PM SHEARER SCREEN MEASURER [employer] TRIMMER [facility] LABORATORY [facility] EST. AVG GLUCOSE, A1C 183 mg/dL 05/16/2018 10:11 PM [facility] Blood Venipuncture / Unknown 05/16/2018 9:39 PM [employer]CRE[employer] MEASURER [employer] TRIMMER 05/16/2018 9:47 PM SHEARER SCREEN MEASURER AND TRIMMER Narrative [facility] LABORATORY [facility] - 05/16/2018 10:11 PM SHE[employer] SCRE[employer] MEASUR[employer] TRIMMER HGB A1C INTERPRETATION NORMAL: ? <5.7% PRE-DIABETES: 5.7 - 6.4% DIABETES: ? 6.5% OR GREATER Debbie Garcia MD CHEMISTRY OR DERABLES Performing Organization Address [facility]/ZIP Co de Phone Number [facility]# [id number] [address] [place] [address] * OSMOLALITY (05/16/2018 9:38 PM SHEARER SCREEN MEASURER AND TRIMMER) Pathologist [facility] OSMOLALITY 286 275 - 300 mOsm/kg 05/16/2018 10:52 PM [facility] [employer] [facility] Blood Venipuncture / Unknown 05/16/2018 9:38 PM SHEARER SCREEN MEASURER AND TRIMMER 05/16/2018 9:47 PM SHEAR[employer] SCREEN MEASURER AND TRIMMER Loki Vences MD CHEMISTRY ORDERABLES [facility] CLIA# [id number] [address] [place] [address] * TSH (05/16/2018 9:38 PM SHEARER SCREEN MEASURER AND TRIMMER) TSH 4.04 0.27 - 4.20 uIU/mL 05/16/2018 10:51 PM [facility] Blood Venipuncture / Unknown 05/16/2018 9:38 PM SHEAR[employer] SCREEN MEASURER AND TRIMMER 05/16/2018 9:47 PM SHEARER SCREEN MEASURER AND TRIMMER Loki Vences MD CHEMISTRY ORDERABLES [facility] [employer] [facility] CLIA# [id number] [address] [place] [address] * (ABNORMAL) LIPID PANEL (05/16/2018 9:38 PM SHEARER SCREEN MEASURER AND TRIMMER) CHOLESTEROL 505(H) <200 mg/dL 05/16/2018 10:54 PM [facility] [employer] [facility] TRIGLYCERIDE 3,147(H) <150 mg/dL 05/16/2018 10:54 PM [facility] [employer] [facility] HDL 40 - 59 mg/dL 05/16/2018 10:54 PM [facility] [employer] [facility] Comment: Measured HDL is not accurate when the Triglyceride value exceeds 1200. LDL CALCULATED <100 mg/dL 05/16/2018 10:54 PM [facility] Comment:Calculated LDL is no t accurate when the Triglyceride value exceeds 400. NON-HDL CHOLESTEROL <130 mg/dL 05/16/2018 10:54 PM [facility] Comment:Non HDL Cholesterol cannot be calculated when the HDL value is suppressed. Blood Venipuncture / Unknown 05/16/2018 9:38 PM [employer] ME[employer]URER [employer] TRIMMER 05/16/2018 9:47 PM SHEAR[employer] SCREEN MEASURER AND TRIMMER Narrative [facility] - 05/16/2018 10:54 PM SHEARER SCREEN MEASURER AND TRIMMER TOTAL CHOLESTEROL ??mg/dL ??Desirable <200 ??Borderline high [...] MD CHEMISTRY OR DERABLES Performing Organization Address City/[facility]/ZIP Co de Phone Number [facility]# [id number] [address] [place] [address] * (ABNORMAL) POC GLUCOSE (05/16/2018 7:56 PM [employer] SCRE[employer] MEASURER [employer] TRIMMER) GLUCOSE POC 129(H) 74 - 99 mg/dL 05/19/2018 7:54 AM SHEARER SCREEN MEASURER AND TRIMMER [facility] [employer] HAND NAME POC JEFF TAVERA 05/19/2018 7:54 AM SHEARER SCREEN MEASURER [employer] TRIMMER [facility] Whole blood specimen (specimen) 05/16/2018 7:56 PM [employer] SCRE[employer] MEASURER AND TRIMMER 05/19/2018 7:54 AM [employer] SCRE[employer] MEASURER [employer] TRIMMER Eva Foreman MD POINT OF CARE TESTIN G Performing Organization Address [facility]/ZIP Co de Phone Number [facility] [id number] [address] [place] [address] * (ABNORMAL) COMPREHENSIVE METABOLIC PANEL (05/16/2018 5:41 PM [facility]) SODIUM 130(L) 136 - 145 mmol/L 05/16/2018 7:29 PM [facility] POTASSIUM 3.5 - 5.0 mmol/L 05/16/2018 7:29 PM [facility] Comment: Gross hemolysis present. ??Result unreliable. CHLORIDE 96(L) 98 - 107 mmol/L 05/16/2018 7:29 PM [facility] CO2 20(L) 22 - 29 mmol/L 05/16/2018 7:29 PM [facility] CALCIUM 8.9 8.6 - 10.2 mg/dL 05/16/2018 7:29 PM [facility] [employer] [facility] BUN 10 6 - 20 mg/dL 05/16/2018 7:29 PM [facility] CREATININE 0.16(L) 0.51 - 0.95 mg/dL 05/16/2018 7:29 PM [facility] [employer] [facility] GLUCOSE 143(H) 74 - 99 mg/dL 05/16/2018 7:29 PM [facility] TOTAL PROTEIN 6.7 6.7 - 8.6 g/dL 05/16/2018 7:29 PM [facility] ALBUMIN 3.7 3.5 - 5.2 g/dL 05/16/2018 7:29 PM [facility] BILIRUBIN TOTAL 0.2(L) 0.3 - 1.2 mg/dL 05/16/2018 7:29 PM [facility] ALKALINE PHOSPHATASE 35 - 104 U/L 05/16/2018 7:29 PM [facility] Comment: Gross hemolysis present. ??Result unreliable. AST 40(H) <33 U/L 05/16/2018 7:29 PM [facility] Comment: Hemolysis present. Result may be falsely elevated. ALT 14 <34 U/L 05/16/2018 7:29 PM [facility] Comment: Hemolysis present. Result may be falsely elevated. GFR >60 >=60 mL/min/1.7 3 sq meter 05/16/2018 7:29 PM [facility] [employer] [facility] Comment: eGFR has not [...] mL/min/1.7 3 sq meter 05/16/2018 7:29 PM [employer] [facility] [employer] [facility] ANION GAP 14 8 - 16 mmol/L 05/16/2018 7:29 PM [facility] [employer] [facility] Blood Venipuncture / Unknown 05/16/2018 5:41 PM [employer] 05/16/2018 5:50 PM [employer] [facility] [employer] [facility] - 05/16/2018 7:29 PM [employer] Samples containing indocyanine green cause interferences on Total and/or Direct Bilirubin and must not be measured. Eva Foreman MD CHEMISTRY ORDERABLES [facility] [employer] [facility]# [id number] [address] [facility] [place] [address] * (ABNORMAL) PROTIME-INR (05/16/2018 4:39 PM [employer]) PROTIME 11.6(L) 12.7 - 15.1 Seconds 05/16/2018 5:26 PM [employer] [facility] INR 0.9 0.9 - 1.1 05/16/2018 5:26 PM [facility] [employer] [facility] Blood Venipuncture / Unknown 05/16/2018 4:39 PM [employer] 05/16/2018 4:46 PM [employer] [facility] [employer] [facility] - 05/16/2018 5:26 PM SHE[employer] SCREEN MEASURER [employer] TRIMMER INR Therapeutic Range: Adult: ?? 2.0 - 3.0 for pulmonary embolism or prophylaxis against venous ?thrombosis or systemic embolization. 2.0 - 3.0 for patients with tissue heart valves. 2.5 - 3.5 for patients with mechanical heart valves or post KS. Pediatric ??(12 years and under): 1.5 - 3.0 Although the target range in children is not well established, ?INR values of 1.5 - 3.0 are recommended for most patients. ?Higher values have been used in children with prosthetic ?cardiac valves and hereditary clotting disorders. [place] (<3 days) therapeutic ranges have not been established. Eva Foreman MD HEMATOLOGY ORDERABLE S Performing Organization Address City/[facility]/ZIP Co de Phone Number [facility]# [id number] [address] [facility] [place] [place] [address] * LIPASE (05/16/2018 4:39 PM SHEAR[employer] SCREEN MEASURER [employer] TRIMMER) LIPASE 36 13 - 60 U/L 05/16/2018 5:27 PM SHEARER SCREEN MEASURER AND TRIMMER [facility] Blood Venipuncture / Unknown 05/16/2018 4:39 PM SHE[employer] SCREEN MEASURER AND TRIMMER 05/16/2018 4:46 PM SHE[employer] SCREEN MEASURER AND TRIMMER Eva Foreman MD CHEMISTRY ORDERABLES Performing Organization Address [facility]/ZIP Co de Phone Number [facility]# [id number] [address] [place] [address] * (ABNORMAL) C-REACTIVE PROTEIN (05/16/2018 4:39 PM SHEARER SCREEN MEASURER [employer] TRIMMER) CRP 11.9(H) <5.0 mg/L 05/16/2018 5:27 PM SHEARER SCREEN MEASURER AND TRIMMER [facility] Blood Venipuncture / Unknown 05/16/2018 4:39 PM SHE[employer] SCREEN MEASURER AND TRIMMER 05/16/2018 4:46 PM SHEAR[employer] SCREEN MEASURER AND TRIMMER Eva Foreman MD CHEMISTRY ORDERABLES [facility] CLIA# [id number] [address] [place] [address] * (ABNORMAL) CBC WITH DIFFERENTIAL (05/16/2018 4:39 PM SHEARER SCREEN MEASURER AND TRIMMER) WBC 10.3(H) 4.0 - 9.8 K/uL 05/16/2018 5:01 PM [facility] RBC 4.18 3.90 - 4.90 M/uL 05/16/2018 5:01 PM [facility] HEMOGLOBIN 13.9 11.8 - 14.8 g/dL 05/16/2018 5:01 PM [facility] HEMATOCRIT 38.4 35.5 - 44.0 % 05/16/2018 5:01 PM [facility] MCV 91.9 82.0 - 99.0 fL 05/16/2018 5:01 PM [facility] MCH 33.3(H) 27.2 - 32.6 pg 05/16/2018 5:01 PM [facility] MCHC 36.2(H) 31.5 - 35.5 g/dL 05/16/2018 5:01 PM [facility] RDW 14.6(H) 11.5 - 14.5 % 05/16/2018 5:01 PM [employer] SCRE[employer] ME[employer]UR[employer]MER [facility] RDW-STDEV 49.4(H) 37.1 - 48.7 fL 05/16/2018 5:01 PM SHE[employer] SCREEN MEASURER [employer] TRIMMER [facility] PLATELETS 336 140 - 350 K/uL 05/16/2018 5:01 PM SHE[employer] SCREEN MEASURER [employer] TRIMMER [facility] MPV 9.8 9.3 - 12.4 fL 05/16/2018 5:01 PM SHE[employer] SCREEN MEASURER [employer] TRIMMER [facility] NEUTROPHILS 66 % 05/16/2018 5:01 PM SHE[employer] SCREEN MEASURER [employer] TRIMMER [facility] LYMPHOCYTES 26 % 05/16/2018 5:01 PM SHE[employer] SCREEN MEASURER [employer] TRIMMER [facility] MONOCYTES 5 % 05/16/2018 5:01 PM [facility] EOSINOPHILS 1 % 05/16/2018 5:01 PM [facility] BASOPHILS 1 % 05/16/2018 5:01 PM [facility] IMMATURE GRANULOCYTES 1 % 05/16/2018 5:01 PM [facility] Comment:IG (Immature Granulo cyte) count includes Metamyelocytes, Myelocytes, and Promyelocytes NEUTROPHIL ABSOLUTE 6.78 1.90 - 7.00 K/uL 05/16/2018 5:01 PM [facility] LYMPHOCYTE ABSOLUTE 2.70 0.70 - 4.50 K/uL 05/16/2018 5:01 PM [facility] MONOCYTE ABSOLUTE 0.53 0.10 - 1.30 K/uL 05/16/2018 5:01 PM [facility] EOSINOPHIL ABSOLUTE 0.09 0.00 - 0.70 K/uL 05/16/2018 5:01 PM [facility] BASOPHILS ABSOLUTE 0.05 0.00 - 0.20 K/uL 05/16/2018 5:01 PM [facility] IMMATURE GRANULOCYTES ABSOLUTE 0.11(H) 0.00 - 0.03 K/uL 05/16/2018 5:01 PM [facility] Blood Venipuncture / Unknown 05/16/2018 4:39 PM SHEAR[employer] SCREEN MEASURER AND TRIMMER 05/16/2018 4:46 PM [facility] Eva Foreman MD HEMATOLOGY ORDERABLE S [facility] CLIA# [id number] [address] [facility] [address] [place], [place] [id number] * (ABNORMAL) URINALYSIS WITH REFLEX MICROSCOPIC (05/16/2018 4:31 PM SHEARER SCREEN MEASURER AND TRIMMER) COLOR UA Yellow Pale to Dark Yellow 05/16/2018 4:58 PM [facility] CLARITY UA Slightly Cloudy(A) Clear 05/16/2018 4:58 PM [facility] [employer] [facility] SPECIFIC GRAVITY UA 1.023 1.003 - 1.035 05/16/2018 4:58 PM [facility] PH UA 5.0 5.0 - 8.0 05/16/2018 4:58 PM [facility] LEUKOCYTE ESTERASE UA Negative Negative 05/16/2018 4:58 PM [facility] NITRITE UA Negative Negative 05/16/2018 4:58 PM [facility] PROTEIN UA Negative Negative 05/16/2018 4:58 PM [facility] GLUCOSE UA 1+(A) Negative 05/16/2018 4:58 PM [facility] KETONES UA Trace(A) Negative 05/16/2018 4:58 PM [facility] UROBILINOGEN UA Normal <2.0 mg/dL 9 4:58 PM [facility] BILIRUBIN UA Negative Negative 05/16/2018 4:58 PM [facility] BLOOD UA Negative Negative 05/16/2018 4:58 PM [facility] WBC UA 0-2 0 - 2 /hpf 05/16/2018 4:58 PM [facility] RBC UA 0-2 0 - 2 /hpf 05/16/2018 4:58 PM [facility] BACTERIA UA 1+(A) Negative /hpf 05/16/2018 4:58 PM [facility] EPITHELIAL CELLS, URINE 6-10(A) 0 - 5 /hpf 05/16/2018 4:58 PM [facility] Urine URINE SPECIMEN OBTAINED BY CLEAN CATCH PROCEDURE / Unknown Collection / Unknown 05/16/2018 4:31 PM SHE[employer] SCREEN MEASURER [employer] TRIMMER 05/16/2018 4:38 PM SHEARER SCREEN MEASURER AND TRIMMER Eva Foreman MD URINE ORDERABLES [facility] CLIA# [id number] [address] [place] [address] [address] [place] [place] [address] documented in this encounter Visit Diagnoses Diagnosis [...] Until Discontinued, Routine Given 05/20/2018 8:16 PM SHEAR[employer] SCREEN MEASURER AND TRIMMER 80 mg Given 05/19/2018 9:26 PM SHE[employer] SCREEN MEASURER AND TRIMMER 80 mg Given 05/18/2018 8:08 PM SHE[employer] SCREEN MEASURER AND TRIMMER 80 mg calcium GLUCONATE 2,000 mg in sodium chloride 0.9% 120 mL IVPB 2,000 mg, IV, INTRA-PROCEDURE ONCE, 1 dose, Starting on 05/17/18 at 1200, Until 05/17/18 at 1550, Routine New Bag 05/17/2018 3:02 PM SHEAR[employer] SCREEN MEASURER AND TRIMMER 2,000 mg 150 mL /hr calcium GLUCONATE 2,000 mg in sodium chloride 0.9% 120 mL IVPB 2,000 mg, IV, ONE TIME ONLY, 1 dose, On 05/18/18 at 1000, Routine New Bag 05/18/2018 11:06 AM SHEAR[employer] SCREEN MEASURER AND TRIMMER 2,000 mg 144 mL/hr calcium GLUCONATE 2,000 mg in sodium chloride 0.9% 120 mL IVPB 2,000 mg, IV, INTRA-PROCEDURE ONCE, 1 dose, Starting on 05/19/18 at 1300, Until Sat05/19/18 at 1530, Routine New Bag 05/19/2018 2:35 PM SHE[employer] SCREEN MEASURER AND TRIMMER 2,000 mg 240 mL /hr citalopram (CeleXA) tablet 40 mg 40 mg, Oral, DAILY AT BEDTIME, First dose on Sat05/16/18 at 2330, Until Discontinued, Routine Given 05/20/2018 8:16 PM SHE[employer] SCREEN MEASURER AND TRIMMER 40 mg Given 05/19/2018 9:26 PM SHE[employer] SCREEN MEASURER AND TRIMMER 40 mg Given 05/18/2018 8:07 PM SHE[employer] SCREEN MEASURER AND TRIMMER 40 mg dextrose 5% - sodium chloride 0.45% infusion IV, at 100 mL/hr, CONTINUOUS, Starting on Sat05/17/18 at 0130, Until Sat05/19/18 at 0641, Routine Rate Verify 05/19/2018 5:20 AM SHE[employer] SCREEN ME[employer]URER [employer] TRIMMER 100 mL/hr New Bag 05/18/2018 8:13 AM SHE[employer] SCREEN MEASURER AND TRIMMER 100 mL/hr Bag Switched 05/17/2018 9:12 PM SHE[employer] SCREEN MEASURER AND TRIMMER 100 mL/hr dextrose 5% - sodium chloride [...] 2018, Itching, Routine Given 05/18/2018 3:44 PM SHE[employer] SCREEN MEASURER AND TRIMMER 25 mg Given 05/17/2018 7:13 PM SHE[employer] SCREEN MEASURER AND TRIMMER 25 mg Given 05/17/2018 2:30 PM SHEAR[employer] SCREEN MEASURER AND TRIMMER 25 mg enoxaparin (LOVENOX) injection 40 mg 40 mg, subCUT, EVERY 24 HOURS, First dose (after last modification) on Sat05/18/18 at 0900, Until Discontinued, Routine Given 05/21/2018 10:14 AM SHEAR[employer] SCREEN MEASURER AND TRIMMER 40 mg Abdomen, Left Lower Quadrant Given 05/20/2018 10:07 AM SHEAR[employer] SCREEN MEASURER AND TRIMMER 40 mg A bdomen, Right Upper Quadrant Given 05/19/2018 8:07 AM SHEAR[employer] SCREEN MEASURER AND TRIMMER 40 mg Ab domen, Left Lower Quadrant fenofibrate (LOFIBRA) tablet 160 mg 160 mg, Oral, DAILY, First dose (after last modification) on 05/17/18 at 1100, Until Discontinued, Routine Given 05/21/2018 10:12 AM SHEAR[employer] SCREEN MEASURER AND TRIMMER 160 mg Given 05/20/2018 10:09 AM SHEAR[employer] SCREEN MEASURER AND TRIMMER 160 mg Given 05/19/2018 11:46 AM SHEARER SCREEN MEASURER AND TRIMMER 160 mg Fish Oil-[place]-3 Fatty Acids 360-1,200 mg capsule 2 Capsule 2 Capsule, Oral, TWO TIMES DAILY, First dose (after last modification) on 05/17/18 at 1100, Until Discontinued, Routine Given 05/21/2018 10:12 AM SHEAR[employer] SCREEN MEASURER AND TRIMMER 2 Capsules Given 05/20/2018 8:16 PM SHEARER SCREEN MEASURER AND TRIMMER 2 Capsules Given 05/20/2018 10:08 AM SHEARER SCREEN MEASURER AND TRIMMER 2 Capsules glucagon HCl 1 mg injection 1 mg 1 mg, IM, SEE ADMIN INSTRUCTIONS, Starting on Sat05/20/18 at 1125, Until Sat05/21/18 at 2018, Routine HYDROmorphone (DILAUDID) 2 mg/mL injection 0.3 mg 0.3 mg, IV, EVERY 4 HOURS PRN, Starting on 05/17/18 at 1413, Until Sat05/18/18 at 0958, Pain (See admin instructions), Routine Given 05/18/2018 8:10 AM SHEAR[employer] SCREEN MEASURER AND TRIMMER 0.3 mg Given 05/18/2018 2:10 AM SHE[employer] SCREEN MEASURER AND TRIMMER 0.3 mg Given 05/17/2018 9:07 PM SHEAR[employer] SCREEN MEASURER AND TRIMMER 0.3 mg HYDROmorphone (DILAUDID) 2 mg/mL injection 0.3 mg 0.3 mg, IV, EVERY 4 HOURS PRN, Starting on Sat05/21/18 at 0806, Until Sat05/21/18 at 2018, Pain (See admin instructions), Routine Given 05/21/2018 11:4 7 AM SHEAR[employer] SCREEN MEASURER AND TRIMMER 0.3 mg HYDROmorphone (DILAUDID) 2 mg/mL injection 0.5 mg 0.5 mg, IV, EVERY 4 HOURS PRN, Starting on 05/17/18 at 1247, Until 05/17/18 at 1413, Pain (See admin instructions), Routine Given 05/17/2018 12:5 4 PM SHEAR[employer] SCREEN MEASURER AND TRIMMER 0.5 mg HYDROmorphone (DILAUDID) 2 mg/mL injection 0.5 mg 0.5 mg, IV, EVERY 4 HOURS PRN, Starting on 05/18/18 at 0958, Until Sat05/21/18 at 0807, Pain (See admin instructions), Routine Given 05/21/2018 6:53 AM SHE[employer] SCREEN MEASURER AND TRIMMER 0.5 mg Given 05/21/2018 12:27 AM SHE[employer] SCREEN MEASURER AND TRIMMER 0.5 mg Given 05/20/2018 8:15 PM SHE[employer] SCREEN MEASURER AND TRIMMER 0.5 mg hyoscyamine sulfate injection 0.25 mg 0.25 mg, IV, ONE TIME ONLY, 1 dose, On Sat05/16/18 at 1700, Routine Given 05/16/2018 5:13 PM SHE[employer] SCREEN MEASURER AND TRIMMER 0.25 mg insulin lispro (HumaLOG) variable dose injection subCUT, FOUR TIMES DAILY BEFORE MEALS AND AT BEDTIME, First dose (after last modification) on Sat05/20/18 at 2100, Until Discontinued, Routine Given 05/21/2018 5:32 PM SHE[employer] SCREEN MEASURER AND TRIMMER 1 Units Arm, Left Upper Given 05/21/2018 3:06 PM SHE[employer] SCREEN MEASURER AND TRIMMER 2 Units Ar m, Left Upper Given 05/21/2018 10:24 AM SHEAR[employer] SCREEN MEASURER AND TRIMMER 1 Units A rm, Right insulin regular (HUMULIN R,NOVOLIN R) 100 Units in sodium chloride 0.9% 99 mL infusion 1 Units/hr (1 mL/hr), IV, CONTINUOUS, Starting on Sat05/17/18 at 0445, Until Sat05/19/18 at 0641 Rate Verify 05/17/2018 7:00 AM SHE[employer] SCREEN MEASURER AND TRIMMER 8 Units/hr 8 mL/hr Rate Verify 05/17/2018 6:00 AM SHE[employer] SCREEN MEASURER AND TRIMMER 8 Units/hr 8 mL/hr Rate Verify 05/17/2018 5:00 AM SHE[employer] SCREEN MEASURER AND TRIMMER 8 Units/hr 8 mL/hr lactated Ringers solution IV, at 100 mL/hr, CONTINUOUS, Starting on Sat05/19/18 at 0645, Until Sat05/21/18 at 1612, Routine Bag Switched 05/21/2018 10:23 AM SHE[employer]CRE[employer] ME[employer]ER [employer] TRIMMER 100 mL/hr New Bag 05/20/2018 2:19 PM [employer]CRE[employer] ME[employer] TRIMMER 100 mL/hr Restarted 05/20/2018 4:27 AM SHE[employer] SCRE[employer] MEAS[employer]ER [employer] TRIMMER 100 mL/hr levothyroxine (SYNTHROID) tablet 200 mcg 200 mcg, Oral, DAILY, First dose (after last modification) on Sat05/17/18 at 1100, Until Discontinued, Routine Given 05/21/2018 10:12 AM SHE[employer] SCRE[employer] ME[employer]ER AND TRIMMER 200 mcg Given 05/20/2018 10:08 AM [employer] SCREEN MEASURER AND TRIMMER 200 mcg Given 05/19/2018 11:46 AM SHE[employer] SCREEN MEASURER AND TRIMMER 200 mcg metoclopramide HCl (REGLAN) injection 10 mg 10 mg, IV, ONE TIME ONLY, 1 dose, On Sat05/16/18 at 1900, Routine Given 05/16/2018 7:00 PM SHE[employer] SCREEN MEASURER AND TRIMMER 10 mg metoclopramide HCl (REGLAN) injection 10 mg 10 mg, IV, ONE TIME ONLY, 1 dose, On Sat05/16/18 at 2230, Routine Given 05/17/2018 12:04 AM SHE[employer] SCREEN MEAS[employer]ER [employer] TRIMMER 10 mg morphine 4 mg/mL injection 4 mg 4 mg, IV, ONE TIME ONLY, 1 dose, On Sat05/16/18 at 1900, Routine Given 05/16/2018 6:53 PM SHE[employer]CREEN MEAS[employer]ER [employer] TRIMMER 4 mg morphine 4 mg/mL injection 4 mg 4 mg, IV, EVERY 4 HOURS PRN, Starting on Sat05/16/18 at 2156, Until Sat05/17/18 at 1247, Pain (See admin instructions), Routine Given 05/17/2018 12:16 PM [employer] SCRE[employer] ME[employer]ER [employer] TRIMMER 4 mg Given 05/17/2018 10:07 AM SHE[employer] SCREEN MEASURER AND TRIMMER 4 mg Given 05/17/2018 6:08 AM SHE[employer] SCREEN MEASURER AND TRIMMER 4 mg niacin (NIACOR) tablet 500 mg 500 mg, Oral, TWO TIMES DAILY, First dose (after last modification) on Sat05/16/18 at 2330, Until Discontinued, Routine Given 05/21/2018 10:12 AM [employer] SCRE[employer] ME[employer]ER [employer] TRIMMER 500 mg Given 05/20/2018 8:16 PM [employer] SCRE[employer] ME[employer]ER [employer] TRIMMER 500 mg Given 05/20/2018 10:10 AM [employer] SCREEN MEAS[employer]ER [employer] TRIMMER 500 mg nicotine (NICODERM CQ) 21 mg/24 hr transdermal patch 1 Patch 1 Patch, Transdermal, DAILY, First dose on Sat05/17/18 at 0900, Until Discontinued, Routine Applied 05/21/2018 10:13 AM [employer]CRE[employer] ME[employer] TRIMMER 1 Patch Arm, Right Upper Applied 05/20/2018 10:03 AM SHE[employer] SCREEN MEASURER AND TRIMMER 1 Patch A rm, Right Upper Applied 05/19/2018 8:07 AM SHE[employer] SCREEN MEASURER AND TRIMMER 1 Patch Ar m, Left Upper ondansetron (ZOFRAN) 4 mg/2 mL injection 4 mg 4 mg, IV, ONE TIME ONLY, 1 dose, On Sat05/16/18 at 1700, Routine Given 05/16/2018 5:10 PM SHE[employer] SCRE[employer] ME[employer]ER [employer] TRIMMER 4 mg ondansetron (ZOFRAN) 4 mg/2 mL injection 4 mg 4 mg, IV, EVERY 6 HOURS PRN, Starting on Sat05/16/18 at 2224, Until Sat05/21/18 at 2018, Nausea/Emesis, Routine Given 05/20/2018 2:18 PM [employer]CRE[employer] TRIMMER 4 mg Given 05/19/2018 7:54 PM [employer]CRE[employer] ME[employer]ER [employer] TRIMMER 4 mg Given 05/18/2018 1:03 PM [employer]CRE[employer] ME[employer]ER [employer] TRIMMER 4 mg oxyCODONE (ROXICODONE) tablet 5 mg 5 mg, Oral, EVERY 4 HOURS PRN, Starting on Sat05/16/18 at 2227, Until Sat05/18/18 at 0957, Pain (See admin instructions), Routine Given 05/18/2018 7:06 AM [employer]CRE[employer] TRIMMER 5 mg Given 05/18/2018 1:31 AM [employer]CRE[employer] ME[employer]ER [employer] TRIMMER 5 mg Given 05/17/2018 7:11 PM [employer]CRE[employer] ME[employer] TRIMMER 5 mg oxyCODONE-acetaminophen (PERCOCET) 5-325 mg per tablet 1 Tablet 1 Tablet, Oral, EVERY 4 HOURS PRN, Starting on Sat05/18/18 at 0957, Until Sat05/21/18 at 2018, Pain (See admin instructions), Routine Given 05/21/2018 10:37 AM [employer]CRE[employer] TRIMMER 1 Tablet Given 05/20/2018 6:19 PM [employer]CRE[employer] TRIMMER 1 Tablet Given 05/20/2018 2:17 PM [employer]CRE[employer] ME[employer] TRIMMER 1 Tablet pantoprazole (PROTONIX) injection 40 mg 40 mg, IV, ONE TIME ONLY, 1 dose, On Sat05/16/18 at 1700, Routine Given 05/16/2018 5:11 PM [employer]CRE[employer]MER 40 mg pantoprazole (PROTONIX) tablet 40 mg 40 mg, Oral, TWO TIMES DAILY, First dose (after last modification) on Sat05/17/18 at 1100, Until Discontinued, Routine Given 05/21/2018 10:16 AM [employer]CRE[employer] TRIMMER 40 mg Given 05/20/2018 8:16 PM [employer]CRE[employer]MER 40 mg Given 05/20/2018 10:08 AM [employer]CRE[employer] ME[employer] TRIMMER 40 mg potassium chloride (KLOR-CON) SR tablet 40 mEq 40 mEq, Oral, ONE TIME ONLY, 1 dose, On Sat05/21/18 at 1145, Routine Given 05/21/2018 11:44 AM [employer]CRE[employer] ME[employer] TRIMMER 40 mEq prochlorperazine (COMPAZINE) injection 10 mg 10 mg, IV, EVERY 4 HOURS PRN, Starting on Sat05/18/18 at 1526, Until Sat05/21/18 at 2018, Nausea/Emesis, Routine Given 05/21/2018 10:37 AM [employer]CRE[employer] TRIMMER 10 mg Given 05/20/2018 6:58 PM [employer]CRE[employer] ME[employer] TRIMMER 10 mg Given 05/19/2018 8:50 AM [employer]CRE[employer] ME[employer]ER [employer] TRIMMER 10 mg sodium chloride 0.9% bolus solution 1,000 mL 1,000 mL, IV, ONE TIME ONLY, 1 dose, On Sat05/16/18 at 2200, at 2,000 mL/hr, Administer over 30 Minutes, Routine New Bag 05/16/2018 10:05 PM [employer]CRE[employer] TRIMMER 1,000 mL 2000 mL/hr sodium chloride 0.9% bolus solution 1,000 mL 1,000 mL, IV, ONE TIME ONLY, 1 dose, On Sat05/17/18 at 0345, at 1,000 mL/hr, Administer over 60 Minutes, Routine New Bag 05/17/2018 3:42 AM [employer]CRE[employer] ME[employer] TRIMMER 1,000 mL 1000 mL/hr traZODone (DESYREL) tablet 100 mg 100 mg, Oral, DAILY AT BEDTIME, First dose on Sat05/16/18 at 2330, Until Discontinued, Routine Given 05/20/2018 8:16 PM [employer]IMMER 100 mg Given 05/19/2018 9:28 PM [employer]CRE[employer] ME[employer]MER 100 mg Given 05/18/2018 8:07 PM [employer]CRE[employer]MER 100 mg documented in this encounter Active and Recently Administered Medications Times are shown in [employer] SCRE[employer] ME[employer]ER [employer] TRIMMER. Scheduled Medication Order 05/19/2018 05/20/2018 05/21/2018 atorvastatin [...] (Given - Provider: Jeff Keller RN) Fish Oil-[place]-3 Fatty Acids 360-1,200 mg capsule 2 Capsule [...] Discontinued, Routine 1146 (Given - Provider: BLAISE Auqino)2124 (Given - Provider: BLAISE Renae) 1008 (Given [...] Reina Davidson RN)034 (Restarted - Provider: Reina aDvidson RN)0341 (New Bag - Provider: BLAISE Renae)0342 [...] Carolina RN) 0027 (Given - Provider: Yamileth Carolina RN)0653 (Given - Provider: Yamileth Carolina RN) [...] RN) documented in this encounter Care Teams Loom Control Chain Builder Relationship Specialty Start Date End Date Guerrero Middleton PA-C PCP - General Physician Senior Cytotechnologist 02/13/18 documented as of this encounter
--- OUTSIDE RECORDS SUMMARY | 2024-05-03 21:58 | XMS_ITS | Encounter Summary ---
Author Organization [facility] Address [address] [place] [address] Care Team Providers Care Lumber Cutter Name Role Phone Guerrero Middleton PA-C [...] t Referred To Contact Critical Care Medicine [facility] Transitional Care Unit [address] [place] [address] Referral ID Status Reason Start Date Expiration Date Visits Re quested Visits Authorized [id number] 06/03/2018 07/04/2019 1 Encounter Details Date Type Department Care Team (Latest Contact Info) Description 06/02/2018 7:28 PM RUGBY LEAGUE FOOTBALLER - 06/05/2018 6:03 PM RUGBY LEAGUE FOOTBALLER Hospital Encounter [facility] Transitional Care Unit [address] [place] [address] Ceasar Kelley MD [address] [place] [address] Mc Stinson MD [address] [facility] [address] [place] [address] [place] [address] [place] [address] Chylomicronemia syndrome Discharge Disposition: Home [...] Comments Blood Pressure 124/78 06/05/2018 3:24 PM RUGBY LEAGUE FOOTBALLER Pulse 68 06/05/2018 3:24 PM RUGBY LEAGUE FOOTBALLER Temperature 36.8 ??C (98.2 ??F) 06/05/2018 3:24 PM CS T Respiratory Rate 9 06/05/2018 3:24 PM RUGBY LEAGUE FOOTBALLER Oxygen Saturation 94% 06/05/2018 3:24 PM RUGBY LEAGUE FOOTBALLER Inhaled Oxygen Concentration - - Weight 90.5 kg (199 lb 8 oz) 06/03/2018 1:04 AM RUGBY LEAGUE FOOTBALLER Height 165.1 cm (5' 5 ) 06/03/2018 1:04 AM RUGBY LEAGUE FOOTBALLER Body Mass Index 33.2 06/03/2018 1:04 AM RUGBY LEAGUE FOOTBALLER documented in this encounter Discharge Summaries * Rosalia Thurman MD - 06/05/2018 11:[address] [facility] Adult Discharge Summary Casandra Jones 42 y.o. female 1975 CSN: [id number] Date of Admission: 06/02/2018 Date of Discharge: [...] and at bedtime. Refills: 0 Generic drug: cevrqoj-uunjzl-sjoiibjz DR fenofibrate 160 mg Tablet Commonly known [...] by mouth 2 times daily. Refills: 0 Vluzk1-[id number]-E-FA-Fish Oil [id number] df-fb-zwf-mcg Capsule Take 2 Caplets by mouth 2 [...] Your Medications These medications were sent to [address] [facility] [address] Hours: Saturday-Saturday: 8 a.m. - 8 p.m., [...] Thurman PGY3 Department of Internal Medicine Pager [phone] 06/05/2018, 3:51 PM Y LEAGUE FOOTBALLER Associated attestation - Jam Kahn MD - 06/05/2018 4:12 PM RUGBY LEAGUE FOOTBALLER One of many admissions for chylomicronemia and [...] Rosalia Thurman MD - 06/05/2018 3:52 PM RUGBY LEAGUE FOOTBALLER Your discharging physician is Jam Kahn MD and may be reached at [phone] for any questions or concerns until you [...] is not relieved by nitroglycerin. Smoking Exposure: [facility] encourages all patients to decrease risks associated with smoking and second hand smoke exposure. If you smoke you are advised to quit. Ask your health care provider for advice if you need assistance to stop smoking. Avoid second-hand smoke exposure and do not let people smoke in your home. Please call [phone], our pulmonary rehabilitation department, to learn more about options to reduce your risks. ACTIVITY Your activity level is: increase activity as tolerated and no smoking. DIET Your diet is: low fat and carbohydrate controlled Y LEAGUE FOOTBALLER documented in this encounter Medications at Time [...] by mouth 2 times daily . 09/26/2023 Lmhxy6-ZtgG3-O50-E-F A-Fish Oil [id number] rq-wv-wpx-mcg Capsule Take 2 Caplets by mouth 2 [...] Oral pain medication given throughout shift. VSS. Y LEAGUE FOOTBALLER * Angie Garrett MD - 06/04/2018 1:[address] [facility] Adult Progress Note Admit Date: 06/02/2018 Date of Note: 06/04/2018, 1:39 PM LOS: 1 day Plan Active Problems: Chylomicronemia syndrome: - Triglyceride levels of 1009 on admission. -Multiple previous hospitalizations due to suspected acute pancreatitis from hypertriglyceridemia in [id number]. Received plasmaphoresis on previous admissions -Patient has [...] Lantus in morning and 38 at night LINE SUPPLY.Along with SSI. -Patient is currently on insulin infusion. -Will transition to SC after discontinuing IV insulin to SSI. Chronic/Stable/Resolved Problems: Anxiety: -Continue LINE SUPPLY celexa 40 mg, ativan and trazdone Hypothyroidism: [...] GLUCOSE 108 (H) 74 - 99 mg/dL CHIROPRACTOR ASSISTANT NAME EDA ESPARZA POC GLUCOSE Result Value Ref Range POC GLUCOSE 107 (H) 74 - 99 mg/dL CHIROPRACTOR ASSISTANT NAME ALIZE ROBERTS POC GLUCOSE Result Value Ref Range POC GLUCOSE 124 (H) 74 - 99 mg/dL CHIROPRACTOR ASSISTANT NAME ALIZE ROBERTS POC GLUCOSE Result Value Ref Range POC GLUCOSE 115 (H) 74 - 99 mg/dL CHIROPRACTOR ASSISTANT NAME ALIZE ROBERTS TRIGLYCERIDE Result Value Ref Range TRIGLYCERIDE 520 (H) <150 mg/dL POC GLUCOSE Result Value Ref Range POC GLUCOSE 118 (H) 74 - 99 mg/dL CHIROPRACTOR ASSISTANT NAME EDA ESPARZA POC GLUCOSE Result Value Ref Range POC GLUCOSE 170 (H) 74 - 99 mg/dL CHIROPRACTOR ASSISTANT NAME TAMIKO LASSITER POC GLUCOSE Result Value Ref Range POC GLUCOSE 152 (H) 74 - 99 mg/dL CHIROPRACTOR ASSISTANT NAME SRAVANI [facility] POC GLUCOSE Result Value Ref Range POC GLUCOSE 155 (H) 74 - 99 mg/dL CHIROPRACTOR ASSISTANT [facility] GLUCO[facility] Result Value Ref Range POC GLUCOSE 140 (H) 74 - 99 mg/dL CHIROPRACTOR ASSISTANT NAME SABINA LASSITERI POC GLUCOSE Result Value Ref Range POC GLUCOSE 136 (H) 74 - 99 mg/dL CHIROPRACTOR ASSISTANT [facility] POC GLUCOSE Result Value Ref Range POC GLUCOSE 132 (H) 74 - 99 mg/dL CHIROPRACTOR ASSISTANT NAME SABINA LASSITERI POC GLUCOSE Result Value Ref Range POC GLUCOSE 115 (H) 74 - 99 mg/dL CHIROPRACTOR ASSISTANT [facility] POC GLUCOSE Result Value Ref Range POC GLUCOSE 107 (H) 74 - 99 mg/dL CHIROPRACTOR ASSISTANT NAME SABINA LASSITERI POC GLUCOSE Result Value Ref Range POC GLUCOSE 119 (H) 74 - 99 mg/dL CHIROPRACTOR ASSISTANT [facility] POC GLUCOSE Result Value Ref Range POC GLUCOSE 135 (H) 74 - 99 mg/dL CHIROPRACTOR ASSISTANT NAME SABINA LASSITERI COMPREHENSIVE METABOLIC PANEL Result [...] GLUCOSE 128 (H) 74 - 99 mg/dL CHIROPRACTOR ASSISTANT NAME PARIS CALDERON POC GLUCOSE Result Value Ref Range POC GLUCOSE 136 (H) 74 - 99 mg/dL CHIROPRACTOR ASSISTANT NAME TAMIKO LASSITER POC GLUCOSE Result Value Ref Range POC GLUCOSE 131 (H) 74 - 99 mg/dL COMMENT, GLU POC Notified RN/MD CHIROPRACTOR ASSISTANT NAME KERRY, JAMIE POC GLUCOSE Result Value Ref Range POC GLUCOSE 135 (H) 74 - 99 mg/dL CHIROPRACTOR ASSISTANT NAME LIBIA HEALY POC GLUCOSE Result Value Ref Range POC GLUCOSE 192 (H) 74 - 99 mg/dL COMMENT, GLU POC Notified RN/MD CHIROPRACTOR ASSISTANT NAME JAMIE PAYNE POC GLUCOSE Result Value Ref Range POC GLUCOSE 203 (H) 74 - 99 mg/dL CHIROPRACTOR ASSISTANT NAME LIBIA HEALY POC GLUCOSE Result Value Ref Range POC GLUCOSE 178 (H) 74 - 99 mg/dL COMMENT, GLU POC Notified RN/MD CHIROPRACTOR ASSISTANT NAME KERRYJAMIE POC GLUCOSE Result Value Ref Range POC GLUCOSE 162 (H) 74 - 99 mg/dL CHIROPRACTOR ASSISTANT NAME LIBIA HEALY More than 30 minutes [...] 7 AM- 5 PM: Page via the [facility] 5 PM-7 AM: Call the public works commissioner manager of internal audit at zone phone [phone]. If no response please page the senior resident at [phone] ?? Saturday and Saturday: 7 AM-12 PM: Page via the [facility] E-List 12 PM-7 AM: Call the public works commissioner manager of internal audit at [facility] phone [phone]. If no response please page the senior resident at [phone] ?? If no response to the above steps in 10 minutes, please page the attending physician. Y LEAGUE FOOTBALLER Associated attestation - Jam Kahn MD - 06/04/2018 2:31 PM RUGBY LEAGUE FOOTBALLER [facility] Adult Hospitalist Attending Note I [...] lab and test results. Jam Kahn MD [facility] Hospitalist * Tamiko Lassiter GN - 06/04/2018 [...] 7 AM- 5 PM: Page via the [employer] [facility] E-List 5 PM-7 AM: Call the public works commissioner manager of internal audit at [employer] [employer] phone [phone]. If no response please page the senior resident at [phone] ?? Saturday and Saturday: 7 AM-12 PM: Page via the [employer] [facility] E-List 12 PM-7 AM: Call the public works commissioner manager of internal audit at [employer] phone [phone]. If no response please page the senior resident at [phone] ?? If no response to the above [...] 7 AM- 5 PM: Page [facility] the [facility]List 5 PM-7 AM: Call the public works commissioner manager of internal audit at [employer] phone [phone]. If no response please page the senior resident at [phone] ?? Saturday and Saturday: 7 AM-12 PM: Page via the [facility] E-List 12 PM-7 AM: Call the public works commissioner manager of internal audit at [employer] phone [phone]. If no response please page the senior resident at [phone] ?? If no response to the above steps in 10 minutes, please page the attending physician. Y LEAGUE FOOTBALLER * Eda Esparza, CLAU - 06/03/2018 6:52 [...] Afebrile. VSS. Will continue to monitor patient. Y LEAGUE FOOTBALLER * Angie Garrett MD - 06/03/2018 1:[address] [facility] Adult Progress Note Admit Date: 06/02/2018 Date [...] Lantus in morning and 38 at night LINE SUPPLY. -Patient is currently on insulin infusion. -Will transition to SC after discontinuing IV insulin to SSI. Chronic/Stable/Resolved Problems: Anxiety: -Continue LINE SUPPLY celexa 40 mg, ativan and trazdone Hypothyroidism: [...] GLUCOSE 167 (H) 74 - 99 mg/dL CHIROPRACTOR ASSISTANT NAME LOIDA SALINAS POC GLUCOSE Result Value Ref Range POC GLUCOSE 171 (H) 74 - 99 mg/dL CHIROPRACTOR ASSISTANT NAME LUCAS BEASLEY POC GLUCOSE Result Value Ref Range POC GLUCOSE 190 (H) 74 - 99 mg/dL CHIROPRACTOR ASSISTANT NAME BRANDON REGALADON POC GLUCOSE Result Value Ref Range POC GLUCOSE 180 (H) 74 - 99 mg/dL CHIROPRACTOR ASSISTANT NAME BRANDON REGALADON POC GLUCOSE Result Value Ref Range POC GLUCOSE 176 (H) 74 - 99 mg/dL CHIROPRACTOR ASSISTANT NAME JONATHAN REGALADOLYN POC GLUCOSE Result Value Ref Range POC GLUCOSE 158 (H) 74 - 99 mg/dL CHIROPRACTOR ASSISTANT NAME BRANDON REGALADON CBC WITH DIFFERENTIAL Result [...] GLUCOSE 135 (H) 74 - 99 mg/dL CHIROPRACTOR ASSISTANT NAME JESSICA REGALADO POC GLUCOSE Result Value Ref Range POC GLUCOSE 146 (H) 74 - 99 mg/dL CHIROPRACTOR ASSISTANT NAME JESSICA REGALADO POC GLUCOSE Result Value Ref Range POC GLUCOSE 134 (H) 74 - 99 mg/dL CHIROPRACTOR ASSISTANT NAME JESSICA REGALADO POC GLUCOSE Result Value Ref Range POC GLUCOSE 136 (H) 74 - 99 mg/dL CHIROPRACTOR ASSISTANT NAME YULIANA GAFFNEY POC GLUCOSE Result Value Ref Range POC GLUCOSE 130 (H) 74 - 99 mg/dL CHIROPRACTOR ASSISTANT NAME EDA ESPARZA POC GLUCOSE Result Value Ref Range POC GLUCOSE 134 (H) 74 - 99 mg/dL CHIROPRACTOR ASSISTANT NAME EDA ESPARZA POC GLUCOSE Result Value Ref Range POC GLUCOSE 152 (H) 74 - 99 mg/dL CHIROPRACTOR ASSISTANT NAME ALIZE ROBERTS POC GLUCOSE Result Value Ref Range POC GLUCOSE 131 (H) 74 - 99 mg/dL CHIROPRACTOR ASSISTANT NAME ALIZE ROBERTS POC GLUCOSE Result Value Ref Range POC GLUCOSE 116 (H) 74 - 99 mg/dL CHIROPRACTOR ASSISTANT NAME EDA ESPARZA More than 30 minutes [...] 7 AM- 5 PM: Page via the [facility] E-List 5 PM-7 AM: Call the public works commissioner manager of internal audit at [employer] phone [phone]. If no response please page the senior resident at [phone] ?? Saturday and Saturday: 7 AM-12 PM: Page via the [facility] E-List 12 PM-7 AM: Call the public works commissioner manager of internal audit at zone phone [phone]. If no response please page the senior resident at [phone] ?? If no response to the above steps in 10 minutes, please page the attending physician. Y LEAGUE FOOTBALLER Associated attestation - Jam Kahn MD - 06/03/2018 2:40 PM RUGBY LEAGUE FOOTBALLER [facility] Adult Hospitalist Attending Note I [...] lab and test results. Jam Kahn MD [facility] Hospitalist documented in this encounter H&P Notes * Mc Stinson MD - 06/02/2018 11:[address] [facility] Adult Hospitalist History and Physical [...] 2016 , no grossly abnormal CT in [facility] either -- last CT abdomen 2 months [...] Tape-Silicones Hives Social History Occupational History ??? [employer] Social History Main Topics ??? Smoking [...] HYSTERECTOMY partial due to endometriosis 2006 ??? AL ESOPHAGOGASTRODUODENOSCOPY TRANSORAL DIAGNOSTIC N/A 03/08/2018 ESOPHAGOGASTRODUODENOSCOPY performed by Ceasar Vega MD at [facility] Family History Problem Relation Age of Onset ??? Diabetes Father ??? High Cholesterol Father ??? Hypertension Father ??? Stroke Mother ??? Heart Disease Mother ??? Thyroid Disease Mother ??? High Cholesterol Mother ??? Heart Disease Maternal Grandmother ??? Diabetes Maternal Grandmother ??? Diabetes Paternal Grandmother ??? Diabetes Mother Y LEAGUE FOOTBALLER documented in this encounter ED Notes * [...] called to CLAU gee. All questions answered Y LEAGUE FOOTBALLER * Gabi Holland RN - 06/02/2018 10:19 PM CST Hospitalist at bedside. Y LEAGUE FOOTBALLER * Gabi Holland RN - 06/02/2018 9:02 PM CST MD at bedside with update on plan of care. Y LEAGUE FOOTBALLER * Gabi Holland RN - 06/02/2018 8:00 [...] Family at bedside. Call light in reach. Y LEAGUE FOOTBALLER * Gabi Holland RN - 06/02/2018 7:58 PM CST MD at bedside with primary assessment Y LEAGUE FOOTBALLER * Jessica Silvestre RN - 06/02/2018 6:46 PM CST [facility] ED Adult Female Abdominal Pain Protocol [facility] Approved by: [facility] - Medical Executive Committee Approval Date: ORDERS ARE ENTERED ???PER PROTOCOL?? Nursing Orders: o Insert peripheral IV (excessive vomiting or diarrhea) Laboratory Orders: o CBC with diff ([id number]) o CMP (LAB17) o If female of childbearing age: POC Urine HCG (POC7) or HCG Qualitative urine (VRN564) if sending to lab o Urinalysis with Reflex Microscopy (YPI131) o Serum HCG (if knowingly ) (SGP664) o Obtain serum lipase (LAB99) if upper abdominal pain o Draw and send extra tubes to lab (ED hold) ([id number]) Diagnostic Test Orders: o If RUQ pain, [...] NPO until otherwise ordered by attending physician Y LEAGUE FOOTBALLER * Ceasar Kelley MD - 06/02/2018 6:03 [...] MEDICATIONS Patient's Home Medications Current Home Medications [id number] 60-12-38 CAPSULE CITALOPRAM (CELEXA) 40 MG TABLET FENOFIBRATE (LOFIBRA) 160 MG ORAL TAB INSULIN ASPART (NOVOLOG) 100 UNIT/ML INJECTION INSULIN GLARGINE (LANTUS) 100 UNIT/ML INJECTION LEVOTHYROXINE 200 MCG TABLET LORAZEPAM (ATIVAN) 1 MG TABLET METFORMIN (GLUCOPHAGE) 500 MG TABLET NIACIN (NIACOR) 500 MG TABLET [id number]-[id number]-[id number]-FA-FISH OIL [id number] YW-JG-OEM-MCG CAPSULE ONDANSETRON (ZOFRAN ODT) 4 MG TABLET, [...] GLUCOSE - Abnormal POC GLUCOSE 167 (*) CHIROPRACTOR ASSISTANT NAME LOIDA SALINAS LIPASE - Normal LIPASE [...] Mayer) 9:00 PM: Discussed with Dr. Stinson ([facility] Hospitalist) who will admit to Medical [...] and medical decision making performed by me. Y LEAGUE FOOTBALLER documented in this encounter Miscellaneous Notes * [...] Lungs clear, on room air. NSR on resource conservationist. Blood pressures soft. aware, instructed this nurse to give IV meds only if BP 90/70. Patient diet advanced per orders to diabetic diet. Patient eating very well. Patient states that she is so hungry, and ate 100% of her meals. BM LINE SUPPLY. Voiding per BR, ambulating without difficulty. IV dressings changed today. Will continue to monitor. Report given to CLAU Carlson Y LEAGUE FOOTBALLER * Care Plan - Vika Ledbetter RN - 06/03/2018 12:14 PM CST Initial Discharge Planning Assessment completed. Introductory Care Management letter given. Care Management visited with patient, and discussed Care Management role and discharge planning. Prior to admission, patient's functional level IND with ADL's and ambulation Prior to admission, patient resided at [address]/ 2 steps to enter, lives with and 15 y/o son Prior to admission, patient received assistance with nothing, and had no services in home. Durable medical equipment at home includes none. Patient has had a stay at an acute care hospital in the last 30 days. If [place] will [place], patient does not need a PASARR screening to be started (ie, prior psych admission or intensive services, MR/DD diagnosis prior to the age of 22). Readmission Risk (patient becomes high risk with a score of 8 or greater) 5 Total Score 5 Prior Hospitalizations Primary Emergency Contact: BryanJosé Miguel hill [phone] PCP verified as Guerrero Middleton PA-C. Patient's insurance verified as Payor: [employer] / Plan: ALL [employer] CHOICE / Product Type: Commercial / [facility] [address] [place] [address] assessed, CDPA as no apparent d/c needs at time of discharge. Plan to return to home at time of discharge. No DME needed. Discussed discharge goals and possible discharge needs including .follow up MD appoints as written Care Management contact information provided. Care Management will continue to follow and assist asneeded. RAFFY Begum,RN, [facility] [employer] Steamer Operator II [phone] Y LEAGUE FOOTBALLER * Care Plan - Humaira Regalado RN - 06/03/2018 2:07 AM CST Undress and Assess performed by: Humaira OLGUIN and [place] [facility] Admission or upon transfer to: [facility] 4219 ~~~~~~~~~~~~~~~~~~~~~~~~~~~~ Is the patient a paraplegic/quadriplegic? [...] finger) Disposition of belongings/valuables: in room 4219 Y LEAGUE FOOTBALLER documented in this encounter Plan of Treatment Upcoming Encounters Date Type Department Care Team (Late st Contact Info) Description 09/14/2024 3:00 PM CDT Office Visit [facility] Heart and Vascular - [facility] [address] [place] [address] Marlys Mayer MD [address] [place], [place] [id number] documented as of this encounter Procedures Procedure Name Priority Date/Time Associated Diagnosis Comments POC GLUCOSE Routine 06/05/2018 11:54 AM RUGBY LEAGUE FOOTBALLER POC GLUCOSE Routine 06/05/2018 10:59 AM RUGBY LEAGUE FOOTBALLER POC GLUCOSE Routine 06/05/2018 9:57 AM RUGBY LEAGUE FOOTBALLER POC GLUCOSE Routine 06/05/2018 8:30 AM RUGBY LEAGUE FOOTBALLER POC GLUCOSE Routine 06/05/2018 6:37 AM RUGBY LEAGUE FOOTBALLER POC GLUCOSE Routine 06/05/2018 6:07 AM RUGBY LEAGUE FOOTBALLER TRIGLYCERIDE Routine 06/05/2018 5:41 AM RUGBY LEAGUE FOOTBALLER POC GLUCOSE Routine 06/05/2018 5:27 AM RUGBY LEAGUE FOOTBALLER POC GLUCOSE Routine 06/05/2018 3:52 AM RUGBY LEAGUE FOOTBALLER POC GLUCOSE Routine 06/05/2018 3:31 AM RUGBY LEAGUE FOOTBALLER POC GLUCOSE Routine 06/05/2018 2:45 AM RUGBY LEAGUE FOOTBALLER POC GLUCOSE Routine 06/05/2018 1:29 AM RUGBY LEAGUE FOOTBALLER POC GLUCOSE Routine 06/05/2018 12:39 AM RUGBY LEAGUE FOOTBALLER POC GLUCOSE Routine 06/04/2018 11:28 PM RUGBY LEAGUE FOOTBALLER POC GLUCOSE Routine 06/04/2018 10:31 PM RUGBY LEAGUE FOOTBALLER POC GLUCOSE Routine 06/04/2018 9:36 PM RUGBY LEAGUE FOOTBALLER POC GLUCOSE Routine 06/04/2018 8:46 PM RUGBY LEAGUE FOOTBALLER POC GLUCOSE Routine 06/04/2018 7:30 PM RUGBY LEAGUE FOOTBALLER POC GLUCOSE Routine 06/04/2018 5:37 PM RUGBY LEAGUE FOOTBALLER TRIGLYCERIDE Routine 06/04/2018 4:57 PM RUGBY LEAGUE FOOTBALLER POC GLUCOSE Routine 06/04/2018 4:46 PM RUGBY LEAGUE FOOTBALLER POC GLUCOSE Routine 06/04/2018 3:45 PM RUGBY LEAGUE FOOTBALLER POC GLUCOSE Routine 06/04/2018 2:31 PM RUGBY LEAGUE FOOTBALLER POC GLUCOSE Routine 06/04/2018 1:39 PM RUGBY LEAGUE FOOTBALLER POC GLUCOSE Routine 06/04/2018 12:46 PM RUGBY LEAGUE FOOTBALLER POC GLUCOSE Routine 06/04/2018 11:40 AM RUGBY LEAGUE FOOTBALLER POC GLUCOSE Routine 06/04/2018 10:50 AM RUGBY LEAGUE FOOTBALLER POC GLUCOSE Routine 06/04/2018 10:03 AM RUGBY LEAGUE FOOTBALLER POC GLUCOSE Routine 06/04/2018 9:00 AM RUGBY LEAGUE FOOTBALLER POC GLUCOSE Routine 06/04/2018 7:29 AM RUGBY LEAGUE FOOTBALLER POC GLUCOSE Routine 06/04/2018 6:29 AM RUGBY LEAGUE FOOTBALLER POC GLUCOSE Routine 06/04/2018 5:42 AM RUGBY LEAGUE FOOTBALLER TRIGLYCERIDE Routine 06/04/2018 4:40 AM RUGBY LEAGUE FOOTBALLER COMPREHENSIVE METABOLIC PANEL Routine 06/04/2018 4:40 AM RUGBY LEAGUE FOOTBALLER POC GLUCOSE Routine 06/04/2018 4:35 AM RUGBY LEAGUE FOOTBALLER POC GLUCOSE Routine 06/04/2018 3:32 AM RUGBY LEAGUE FOOTBALLER POC GLUCOSE Routine 06/04/2018 2:27 AM RUGBY LEAGUE FOOTBALLER POC GLUCOSE Routine 06/04/2018 1:23 AM RUGBY LEAGUE FOOTBALLER POC GLUCOSE Routine 06/04/2018 12:31 AM RUGBY LEAGUE FOOTBALLER POC GLUCOSE Routine 06/03/2018 11:31 PM RUGBY LEAGUE FOOTBALLER POC GLUCOSE Routine 06/03/2018 10:29 PM RUGBY LEAGUE FOOTBALLER POC GLUCOSE Routine 06/03/2018 9:31 PM RUGBY LEAGUE FOOTBALLER POC GLUCOSE Routine 06/03/2018 8:25 PM RUGBY LEAGUE FOOTBALLER POC GLUCOSE Routine 06/03/2018 7:36 PM RUGBY LEAGUE FOOTBALLER POC GLUCOSE Routine 06/03/2018 6:28 PM RUGBY LEAGUE FOOTBALLER TRIGLYCERIDE Routine 06/03/2018 5:29 PM RUGBY LEAGUE FOOTBALLER POC GLUCOSE Routine 06/03/2018 5:27 PM RUGBY LEAGUE FOOTBALLER POC GLUCOSE Routine 06/03/2018 4:32 PM RUGBY LEAGUE FOOTBALLER POC GLUCOSE Routine 06/03/2018 3:31 PM RUGBY LEAGUE FOOTBALLER POC GLUCOSE Routine 06/03/2018 2:37 PM RUGBY LEAGUE FOOTBALLER POC GLUCOSE Routine 06/03/2018 1:32 PM RUGBY LEAGUE FOOTBALLER POC GLUCOSE Routine 06/03/2018 12:33 PM RUGBY LEAGUE FOOTBALLER POC GLUCOSE Routine 06/03/2018 11:34 AM RUGBY LEAGUE FOOTBALLER POC GLUCOSE Routine 06/03/2018 10:44 AM RUGBY LEAGUE FOOTBALLER POC GLUCOSE Routine 06/03/2018 9:41 AM RUGBY LEAGUE FOOTBALLER POC GLUCOSE Routine 06/03/2018 8:29 AM RUGBY LEAGUE FOOTBALLER POC GLUCOSE Routine 06/03/2018 7:17 AM RUGBY LEAGUE FOOTBALLER POC GLUCOSE Routine 06/03/2018 6:25 AM RUGBY LEAGUE FOOTBALLER POC GLUCOSE Routine 06/03/2018 5:20 AM RUGBY LEAGUE FOOTBALLER CBC WITH DIFFERENTIAL Routine 06/03/2018 4:32 AM RUGBY LEAGUE FOOTBALLER C-REACTIVE PROTEIN Routine 06/03/2018 4: 32 AM RUGBY LEAGUE FOOTBALLER TRIGLYCERIDE Routine 06/03/2018 4:32 AM RUGBY LEAGUE FOOTBALLER LIPASE Routine 06/03/2018 4:32 AM RUGBY LEAGUE FOOTBALLER COMPREHENSIVE METABOLIC PANEL Routine 06/03/2018 4:32 AM RUGBY LEAGUE FOOTBALLER POC GLUCOSE Routine 06/03/2018 4:20 AM RUGBY LEAGUE FOOTBALLER POC GLUCOSE Routine 06/03/2018 3:21 AM RUGBY LEAGUE FOOTBALLER POC GLUCOSE Routine 06/03/2018 2:17 AM RUGBY LEAGUE FOOTBALLER POC GLUCOSE Routine 06/03/2018 1:21 AM RUGBY LEAGUE FOOTBALLER POC GLUCOSE Stat 06/03/2018 12:14 AM RUGBY LEAGUE FOOTBALLER POC GLUCOSE Stat 06/02/2018 11:07 PM RUGBY LEAGUE FOOTBALLER URINALYSIS W/REFLEX MICROSCOPIC Stat 06/02/2018 7:11 PM RUGBY LEAGUE FOOTBALLER CBC WITH DIFFERENTIAL Stat 06/02/2018 6:50 PM RUGBY LEAGUE FOOTBALLER TRIGLYCERIDE Stat 06/02/2018 6:50 PM RUGBY LEAGUE FOOTBALLER LIPASE Stat 06/02/2018 6:50 PM RUGBY LEAGUE FOOTBALLER COMPREHENSIVE METABOLIC PANEL Stat 06/02/2018 6:50 PM RUGBY LEAGUE FOOTBALLER documented in this encounter Results * POC GLUCOSE (06/05/2018 11:54 AM RUGBY LEAGUE FOOTBALLER) GLUCOSE POC 90 74 - 99 mg/dL 06/05/2018 12:08 PM RUGBY LEAGUE FOOTBALLER [facility] CHIROPRACTOR ASSISTANT NAME POC LUCIEN (pn-UNVERF EHRT )ABHAY 06/05/2018 12:08 PM RUGBY LEAGUE FOOTBALLER [facility] Whole blood specimen (specimen) 06/05/2018 11:54 AM RUGBY LEAGUE FOOTBALLER 06/05/2018 12:08 PM RUGBY LEAGUE FOOTBALLER Jam Kahn MD POINT OF CARE TESTIN G [facility]# [id number] [address] [facility] [address] * POC GLUCOSE (06/05/2018 10:59 AM RUGBY LEAGUE FOOTBALLER) GLUCOSE POC 84 74 - 99 mg/dL 06/05/2018 11:11 AM RUGBY LEAGUE FOOTBALLER [facility] LABORATORY SERVICES [facility] COMMENT, GLU POC Notified RN/MD 06/05/2018 11:11 AM RU[employer]Y LEAGUE FOOTBALLER [facility] LABORATORY SERVICES [facility] CHIROPRACTOR ASSISTANT NAME POC JAMIE PAYNE 06/05/2018 11:11 AM [employer] LEAGUE FOOTBALLER [facility] LABORATORY SERVICES [facility] Whole blood specimen (specimen) 06/05/2018 10:59 AM [employer] FOOTBALLER 06/05/2018 11:11 AM [employer] LEAGUE FOOTBALLER Jam Kahn MD POINT OF CARE TESTJERONIMO [facility]# [id number] [address] [place] [address] * (ABNORMAL) POC GLUCOSE (06/05/2018 9:57 AM RU[employer] LEAGUE FOOTBALLER) GLUCOSE POC 110(H) 74 - 99 mg/dL 06/05/2018 10:30 AM RUGBY LEAGUE FOOTBALLER [facility] LABORATORY SERVICES [facility] CHIROPRACTOR ASSISTANT NAME POC NULL (pn-UNVERF EHRT ), ABHAY 06/05/2018 10:30 AM RU[employer]Y LEAGUE FOOTBALLER [facility] LABORATORY SERVICES [facility] Whole blood specimen (specimen) 06/05/2018 9:57 AM [employer] LEAGUE FOOTBALLER 06/05/2018 10:30 AM RU[employer]Y LEAGUE FOOTBALLER Jam Kahn MD POINT OF CARE TESTJERONIMO Serrano Performing Organization Address [facility]/ZIP Co de Phone Number [facility] [employer] [facility]# [id number] [address] [place] [address] * (ABNORMAL) POC GLUCOSE (06/05/2018 8:30 AM RU[employer]Y LEAGUE FOOTBALLER) GLUCOSE POC 122(H) 74 - 99 mg/dL 06/05/2018 8:42 AM RUGBY LEAGUE FOOTBALLER [facility] LABORATORY SERVICES [facility] COMMENT, GLU POC Notified RN/MD 06/05/2018 8:42 AM RU[employer]Y LEAGUE FOOTBALLER [facility] LABORATORY SERVICES [facility] CHIROPRACTOR ASSISTANT NAME POC KERRY, JAMIE 06/05/2018 8:42 AM RUGBY LEAGUE FOOTBALLER [facility] LABORATORY SERVICES [facility] Whole blood specimen (specimen) 06/05/2018 8:30 AM RU[employer] LEAGUE FOOTBALLER 06/05/2018 8:42 AM RU[employer]Y LEAGUE FOOTBALLER Jam Kahn MD POINT OF CARE TESTJERONIMO Serrano Performing Organization Address [facility]/ZIP Co de Phone Number [facility] LABORATORY [facility]# [id number] [address] [place] [address] * (ABNORMAL) POC GLUCOSE (06/05/2018 6:37 AM RUGBY LEAGUE FOOTBALLER) GLUCOSE POC 135(H) 74 - 99 mg/dL 06/05/2018 6:57 AM RUGBY LEAGUE FOOTBALLER [facility] LABORATORY [facility] CHIROPRACTOR ASSISTANT NAME YESY BEARDEN 06/05/2018 6:57 AM RUGBY LEAGUE FOOTBALLER [facility] LABORATORY SERVICES [facility] Whole blood specimen (specimen) 06/05/2018 6:37 AM RU[employer]Y LEAGUE FOOTBALLER 06/05/2018 6:57 AM RU[employer]Y LEAGUE FOOTBALLER Jam Kahn MD POINT OF CARE FLY Serrano [facility] [employer] [facility] CLAL# [id number] [address] [place] [address] * (ABNORMAL) POC GLUCOSE (06/05/2018 6:07 AM RUGBY LEAGUE FOOTBALLER) GLUCOSE POC 130(H) 74 - 99 mg/dL 06/05/2018 6:20 AM RUGBY LEAGUE FOOTBALLER [facility] LABORATORY [facility] CHIROPRACTOR ASSISTANT NAME YESY BEARDEN 06/05/2018 6:20 AM [facility] LABORATORY [facility] Whole blood specimen (specimen) 06/05/2018 6:07 AM RU[employer]Y LEAGUE FOOTBALLER 06/05/2018 6:20 AM RU[employer]Y LEAGUE FOOTBALLER Jam Kahn MD POINT OF BLANCA Serrano [facility] CLAL# [id number] [address] [place] [address] * (ABNORMAL) TRIGLYCERIDE (06/05/2018 5:41 AM RUGBY LEAGUE FOOTBALLER) TRIGLYCERIDE 421(H) <150 mg/dL 06/05/2018 6:29 AM RUGBY LEAGUE FOOTBALLER [facility] LABORATORY [facility] Blood Venipuncture / Unknown 06/05/2018 5:41 AM RUGBY LEAGUE FOOTBALLER 06/05/2018 5:47 AM RUGBY LEAGUE FOOTBALLER Narrative [facility] LABORATORY [facility] - 06/05/2018 6:29 AM RUGBY LEAGUE FOOTBALLER TRIGLYCERIDES ? mg/dL Normal ?< 150 Borderline High ?150 - 199 High ? 200 - 499 Very High ? >= 500 Based on AHA/NCEP Guidelines. Jam Kahn MD CHEMISTRY ORDERABLES Performing Organization Address [facility] Phone Number [facility]# [id number] [address] [place] [address] * (ABNORMAL) POC GLUCOSE (06/05/2018 5:27 AM RUGBY LEAGUE FOOTBALLER) GLUCOSE POC 140(H) 74 - 99 mg/dL 06/05/2018 5:39 AM [facility] [employer] [facility] CHIROPRACTOR ASSISTANT NAME POC PARIS CALDERON 06/05/2018 5:39 AM [facility] [employer] [facility] Whole blood specimen (specimen) 06/05/2018 5:27 AM RU[employer]Y LEAGUE FOOTBALLER 06/05/2018 5:39 AM RU[employer]Y LEAGUE FOOTBALLER Jam Kahn MD POINT OF CARE FLY Serrano Performing Organization Address [facility] de Phone Number [facility]# [id number] [address] [place] [address] * (ABNORMAL) POC GLUCOSE (06/05/2018 3:52 AM RUGBY LEAGUE FOOTBALLER) GLUCOSE POC 121(H) 74 - 99 mg/dL 06/05/2018 4:09 AM RUGBY LEAGUE FOOTBALLER [facility] LABORATORY [facility] CHIROPRACTOR ASSISTANT NAME POC YESY ANDERS 06/05/2018 4:09 AM [facility] [employer] [facility] Whole blood specimen (specimen) 06/05/2018 3:52 AM RU[employer]Y LEAGUE FOOTBALLER 06/05/2018 4:09 AM RUGBY LEAGUE FOOTBALLER Jam Kahn MD POINT OF CARE FLY Serrano [facility] [employer] [facility]# [id number] [address] [place] [address] * POC GLUCOSE (06/05/2018 3:31 AM RUGBY LEAGUE FOOTBALLER) GLUCOSE POC 90 74 - 99 mg/dL 06/05/2018 3:44 AM RUGBY LEAGUE FOOTBALLER [facility] LABORATORY SERVICES [facility] CHIROPRACTOR ASSISTANT NAME POC YESY ANDERS 06/05/2018 3:44 AM RUGBY LEAGUE FOOTBALLER [facility] LABORATORY SERVICES [facility] Whole blood specimen (specimen) 06/05/2018 3:31 AM RU[employer]Y LEAGUE FOOTBALLER 06/05/2018 3:44 AM RUGBY LEAGUE FOOTBALLER Jam Kahn MD POINT OF CARE TESTJERONIMO Serrano Performing Organization Address [facility]/ZIP Co de Phone Number [facility] [employer] [facility]# [id number] [address] [place] [address] * POC GLUCOSE (06/05/2018 2:45 AM RUGBY LEAGUE FOOTBALLER) GLUCOSE POC 82 74 - 99 mg/dL 06/05/2018 3:00 AM RUGBY LEAGUE FOOTBALLER [facility] LABORATORY [facility] CHIROPRACTOR ASSISTANT NAME POC PARIS CALDERON 06/05/2018 3:00 AM RUGBY LEAGUE FOOTBALLER [facility] Whole blood specimen (specimen) 06/05/2018 2:45 AM RUGBY LEAGUE FOOTBALLER 06/05/2018 3:00 AM RUGBY LEAGUE FOOTBALLER Jam Kahn MD POINT OF CARE TESTIN G Performing Organization Address City/[facility]/ZIP Co de Phone Number [facility] [employer] [facility]# [id number] [address] [place] [address] * (ABNORMAL) POC GLUCOSE (06/05/2018 1:29 AM RUGBY LEAGUE FOOTBALLER) GLUCOSE POC 107(H) 74 - 99 mg/dL 06/05/2018 1:41 AM RUGBY LEAGUE FOOTBALLER [facility] LABORATORY SERVICES [facility] CHIROPRACTOR ASSISTANT NAME PARIS ROMERO 06/05/2018 1:41 AM RUGBY LEAGUE FOOTBALLER [employer] LABORATORY SERVICES [facility] Whole blood specimen (specimen) 06/05/2018 1:29 AM RUGBY LEAGUE FOOTBALLER 06/05/2018 1:41 AM RUGBY LEAGUE FOOTBALLER Jam Kahn MD POINT OF CARE TESTIN G Performing Organization Address [facility]/ZIP Co de Phone Number [facility] LABORATORY [facility] CLIA# [id number] [address] [place] [address] * (ABNORMAL) POC GLUCOSE (06/05/2018 12:39 AM RUGBY LEAGUE FOOTBALLER) GLUCOSE POC 111(H) 74 - 99 mg/dL 06/05/2018 12:51 AM RUGBY LEAGUE FOOTBALLER [facility] CHIROPRACTOR ASSISTANT NAME POC PARIS CALDERON 06/05/2018 12:51 AM RUGBY LEAGUE FOOTBALLER [employer] LABORATORY SERVICES [facility] Whole blood specimen (specimen) 06/05/2018 12:39 AM RUGBY LEAGUE FOOTBALLER 06/05/2018 12:51 AM RUGBY LEAGUE FOOTBALLER Jam Kahn MD POINT OF CARE TESTJERONIMO Maggie Performing Organization Address [facility] Co de Phone Number [facility] [employer] [facility] CLIA# [id number] [address] [place] [address] * (ABNORMAL) POC GLUCOSE (06/04/2018 11:28 PM RUGBY LEAGUE FOOTBALLER) GLUCOSE POC 102(H) 74 - 99 mg/dL 06/04/2018 11:43 PM RUGBY LEAGUE FOOTBALLER [facility] CHIROPRACTOR ASSISTANT NAME POC YESY ANDERS 06/04/2018 11:43 PM RUGBY LEAGUE FOOTBALLER [employer] LABORATORY SERVICES [facility] Whole blood specimen (specimen) 06/04/2018 11:28 PM RU[employer]Y LEAGUE FOOTBALLER 06/04/2018 11:42 PM RUGBY LEAGUE FOOTBALLER Jam Kahn MD POINT OF CARE TESTIN Maggie Performing Organization Address City/[facility]/ZIP Co de Phone Number [facility] LABORATORY [facility] CLIA# [id number] [address] [place] [address] * (ABNORMAL) POC GLUCOSE (06/04/2018 10:31 PM RUGBY LEAGUE FOOTBALLER) GLUCOSE POC 123(H) 74 - 99 mg/dL 06/04/2018 10:45 PM RUGBY LEAGUE FOOTBALLER [facility] LABORATORY [facility] CHIROPRACTOR ASSISTANT NAME PARIS ROMERO 06/04/2018 10:45 PM RUGBY LEAGUE FOOTBALLER [facility] LABORATORY SERVICES [facility] Whole blood specimen (specimen) 06/04/2018 10:31 PM RUGBY LEAGUE FOOTBALLER 06/04/2018 10:45 PM RUGBY LEAGUE FOOTBALLER Jam Kahn MD POINT OF CARE TESTJERONIMO Serrano [facility] [employer] [facility] CLIA# [id number] [address] [place] [address] * (ABNORMAL) POC GLUCOSE (06/04/2018 9:36 PM RUGBY LEAGUE FOOTBALLER) GLUCOSE POC 123(H) 74 - 99 mg/dL 06/04/2018 9:49 PM RUGBY LEAGUE FOOTBALLER [facility] LABORATORY [facility] CHIROPRACTOR ASSISTANT NAME YESY BEARDEN 06/04/2018 9:49 PM RUGBY LEAGUE FOOTBALLER [facility] LABORATORY [facility] Whole blood specimen (specimen) 06/04/2018 9:36 PM RUGBY LEAGUE FOOTBALLER 06/04/2018 9:49 PM RU[employer]Y LEAGUE FOOTBALLER Jam Kahn MD POINT OF CARE TESTJERONIMO Serrano [facility] CLIA# [id number] [address] [place] [address] * POC GLUCOSE (06/04/2018 8:46 PM RUGBY LEAGUE FOOTBALLER) GLUCOSE POC 93 74 - 99 mg/dL 06/04/2018 8:58 PM RUGBY LEAGUE FOOTBALLER [facility] LABORATORY [facility] CHIROPRACTOR ASSISTANT NAME PARIS ROMERO 06/04/2018 8:58 PM RUGBY LEAGUE FOOTBALLER [facility] LABORATORY SERVICES [facility] Whole blood specimen (specimen) 06/04/2018 8:46 PM RUGBY LEAGUE FOOTBALLER 06/04/2018 8:58 PM RUGBY LEAGUE FOOTBALLER Jam Kahn MD POINT OF CARE TESTIN Maggie [facility]# [id number] [address] [place], [place] [address] * POC GLUCOSE (06/04/2018 7:30 PM RUGBY LEAGUE FOOTBALLER) GLUCOSE POC 91 74 - 99 mg/dL 06/04/2018 7:42 PM RUGBY LEAGUE FOOTBALLER [facility] LABORATORY SERVICES [facility] CHIROPRACTOR ASSISTANT NAME POC PARIS CALDERON 06/04/2018 7:42 PM RUGBY LEAGUE FOOTBALLER [facility] LABORATORY SERVICES [facility] Whole blood specimen (specimen) 06/04/2018 7:30 PM RUGBY LEAGUE FOOTBALLER 06/04/2018 7:42 PM RUGBY LEAGUE FOOTBALLER Jam Kahn MD POINT OF CARE TESTJERONIMO Serrano Performing Organization Address [facility] Co de Phone Number [facility] [employer] [facility]# [id number] [address] [place], [place] [address] * (ABNORMAL) POC GLUCOSE (06/04/2018 5:37 PM RUGBY LEAGUE FOOTBALLER) GLUCOSE POC 115(H) 74 - 99 mg/dL 06/04/2018 5:49 PM RUGBY LEAGUE FOOTBALLER [facility] LABORATORY SERVICES [facility] COMMENT, GLU POC Notified RN/MD 06/04/2018 5:49 PM RUGBY LEAGUE FOOTBALLER [facility] LABORATORY SERVICES [facility] CHIROPRACTOR ASSISTANT NAME POC JAMIE PAYNE 06/04/2018 5:49 PM RUGBY LEAGUE FOOTBALLER [facility] LABORATORY SERVICES [facility] Whole blood specimen (specimen) 06/04/2018 5:37 PM RU[employer]Y LEAGUE FOOTBALLER 06/04/2018 5:49 PM RUGBY LEAGUE FOOTBALLER Jam Kahn MD POINT OF CARE TESTJERONIMO Serrano Performing Organization Address [facility]/ZIP Co de Phone Number [facility]# [id number] [address] [place], [place] [address] * (ABNORMAL) TRIGLYCERIDE (06/04/2018 4:57 PM RUGBY LEAGUE FOOTBALLER) TRIGLYCERIDE 532(H) <150 mg/dL 06/04/2018 5:49 PM RUGBY LEAGUE FOOTBALLER [facility] Blood Venipuncture / Unknown 06/04/2018 4:57 PM RUGBY LEAGUE FOOTBALLER 06/04/2018 5:08 PM RUGBY LEAGUE FOOTBALLER Narrative [facility] - 06/04/2018 5:49 PM RUGBY LEAGUE FOOTBALLER TRIGLYCERIDES ? mg/dL Normal ?< 150 Borderline High ?150 - 199 High ? 200 - 499 Very High ? >= 500 Based on AHA/NCEP Guidelines. Jam Kahn MD CHEMISTRY ORDERABLES Performing Organization Address [facility]/ZIP Co de Phone Number [facility]# [id number] [address] [place] [place] [address] * (ABNORMAL) POC GLUCOSE (06/04/2018 4:46 PM RUGBY LEAGUE FOOTBALLER) [facility] GLUCOSE POC 121(H) 74 - 99 mg/dL 06/04/2018 4:58 PM RUGBY LEAGUE FOOTBALLER [facility] LABORATORY [facility] COMMENT, GLU POC Notified RN/MD 06/04/2018 4:58 PM RUGBY LEAGUE FOOTBALLER [facility] LABORATORY [facility] CHIROPRACTOR ASSISTANT NAME POC JAMIE PAYNE 06/04/2018 4:58 PM RUGBY LEAGUE FOOTBALLER [facility] Whole blood specimen (specimen) 06/04/2018 4:46 PM RUGBY LEAGUE FOOTBALLER 06/04/2018 4:58 PM RUGBY LEAGUE FOOTBALLER Jam Kahn MD POINT OF CARE TESTIN G Performing Organization Address [facility]/ZIP Co de Phone Number [facility]# [id number] [address] [place] [address] * (ABNORMAL) POC GLUCOSE (06/04/2018 3:45 PM RUGBY LEAGUE FOOTBALLER) GLUCOSE POC 131(H) 74 - 99 mg/dL 06/04/2018 3:57 PM RUGBY LEAGUE FOOTBALLER [facility] LABORATORY [facility] COMMENT, GLU POC Notified RN/ 06/04/2018 3:57 PM RUGBY LEAGUE FOOTBALLER [facility] LABORATORY SERVICES [facility] CHIROPRACTOR ASSISTANT NAME JAMIE FIGUEREDO 06/04/2018 3:57 PM RUGBY LEAGUE FOOTBALLER [facility] LABORATORY SERVICES [facility] Whole blood specimen (specimen) 06/04/2018 3:45 PM RU[employer]Y LEAGUE FOOTBALLER 06/04/2018 3:57 PM RUGBY LEAGUE FOOTBALLER Jam Kahn MD POINT OF CARE TESTIN G Performing Organization Address [facility]/ZIP Co de Phone Number [facility] CLIA# [id number] [address] [place] [address] * (ABNORMAL) POC GLUCOSE (06/04/2018 2:31 PM RUGBY LEAGUE FOOTBALLER) GLUCOSE POC 156(H) 74 - 99 mg/dL 06/04/2018 2:43 PM RUGBY LEAGUE FOOTBALLER [facility] LABORATORY [facility] COMMENT, GLU POC Notified CLAU/ 06/04/2018 2:43 PM RUGBY LEAGUE FOOTBALLER [facility] LABORATORY [facility] CHIROPRACTOR ASSISTANT NAME JAMIE FIGUEREDO 06/04/2018 2:43 PM RUGBY LEAGUE FOOTBALLER [facility] LABORATORY SERVICES [facility] Whole blood specimen (specimen) 06/04/2018 2:31 PM RU[employer]Y LEAGUE FOOTBALLER 06/04/2018 2:43 PM RUGBY LEAGUE FOOTBALLER Jam Kahn MD POINT OF CARE TESTIN G [facility] CLAL# [id number] [address] [place] [address] * (ABNORMAL) POC GLUCOSE (06/04/2018 1:39 PM RUGBY LEAGUE FOOTBALLER) GLUCOSE POC 201(H) 74 - 99 mg/dL 06/04/2018 1:51 PM RUGBY LEAGUE FOOTBALLER [facility] LABORATORY SERVICES [facility] COMMENT, GLU POC Notified RN/ 06/04/2018 1:51 PM RUGBY LEAGUE FOOTBALLER [facility] LABORATORY [facility] - [facility] CHIROPRACTOR ASSISTANT NAME POC JAMIE PAYNE 06/04/2018 1:51 PM RUGBY LEAGUE FOOTBALLER [facility] LABORATORY SERVICES - [facility] Whole blood specimen (specimen) 06/04/2018 1:39 PM RU[employer]Y LEAGUE FOOTBALLER 06/04/2018 1:51 PM RU[employer]Y LEAGUE FOOTBALLER Jam Kahn MD POINT OF CARE TESTJERONIMO Performing Organization Address [facility] Co nm Phone Number [facility] [employer] [facility]# [id number] [address] [place] [address] * (ABNORMAL) POC GLUCOSE (06/04/2018 12:46 PM RUGBY LEAGUE FOOTBALLER) GLUCOSE POC 162(H) 74 - 99 mg/dL 06/04/2018 12:59 PM RUGBY LEAGUE FOOTBALLER [employer] LABORATORY SERVICES - [facility] CHIROPRACTOR ASSISTANT NAME POC MT HEALYZHANNA 06/04/2018 12:59 PM RUGBY LEAGUE FOOTBALLER [employer] LABORATORY SERVICES [facility] Whole blood specimen (specimen) 06/04/2018 12:46 PM RU[employer]Y LEAGUE FOOTBALLER 06/04/2018 12:59 PM RU[employer]Y LEAGUE FOOTBALLER Jam Kahn MD POINT OF CARE TESTJERONIMO Performing Organization Address [facility] Phone Number [facility] [employer] [facility]# [id number] [address] [place] [address] * (ABNORMAL) POC GLUCOSE (06/04/2018 11:40 AM RUGBY LEAGUE FOOTBALLER) GLUCOSE POC 178(H) 74 - 99 mg/dL 06/04/2018 11:52 AM RUGBY LEAGUE FOOTBALLER [facility] COMMENT, GLU POC Notified BREANN 06/04/2018 11:52 AM RUGBY LEAGUE FOOTBALLER [employer] LABORATORY SERVICES - [facility] CHIROPRACTOR ASSISTANT NAME POC JAMIE PAYNE 06/04/2018 11:52 AM RUGB[employer] [facility] Whole blood specimen (specimen) 06/04/2018 11:40 AM [employer] 06/04/2018 11:52 AM [employer] Jam Kahn MD POINT OF CARE TESTJERONIMO Maggie Performing Organization Address [facility]/ZIP Co de Phone Number [facility]# [id number] [address] [place] [address] * (ABNORMAL) POC GLUCOSE (06/04/2018 10:50 AM [employer]) GLUCOSE POC 203(H) 74 - 99 mg/dL 06/04/2018 11:03 AM [employer] [facility]ORATORY SERVICES [facility] CHIROPRACTOR ASSISTANT NAME POC LIBIA HEALY 06/04/2018 11:03 AM [employer] [facility] Whole blood specimen (specimen) 06/04/2018 10:50 AM [employer] 06/04/2018 11:03 AM [employer] Jam Kahn MD POINT OF CARE TESTJERONIMO Maggie Performing Organization Address [facility]/ZIP Co de Phone Number [facility]# [id number] [address] [place] [address] * (ABNORMAL) POC GLUCOSE (06/04/2018 10:03 AM [employer]) GLUCOSE POC 192(H) 74 - 99 mg/dL 06/04/2018 10:21 AM [facility] COMMENT, GLU POC Notified RN/MD 06/04/2018 10:21 AM [facility] CHIROPRACTOR ASSISTANT NAME POC KERRY JAMIE 06/04/2018 10:21 AM [employer] [facility] Whole blood specimen (specimen) 06/04/2018 10:03 AM [employer] 06/04/2018 10:21 AM [employer] Jam Kahn MD POINT OF CARE TESTJERONIMO Serrano Performing Organization Address [facility]/ZIP Co de Phone Number [facility]# [id number] [address] [place] [address] * (ABNORMAL) POC GLUCOSE (06/04/2018 9:00 AM [employer]) GLUCOSE POC 135(H) 74 - 99 mg/dL 06/04/2018 9:14 AM [facility] SERVICES [facility] CHIROPRACTOR ASSISTANT NAME POC LIBIA HEALY 06/04/2018 9:14 AM [facility] SERVICES [facility] Whole blood specimen (specimen) 06/04/2018 9:00 AM [employer] 06/04/2018 9:14 AM [employer] Jam Kahn MD POINT OF CARE TESTJERONIMO G Performing Organization Address [facility]/ZIP Co de Phone Number [facility] [employer] [facility] CLIA# [id number] [address] [place] [address] * (ABNORMAL) POC GLUCOSE (06/04/2018 7:29 AM [employer]) GLUCOSE POC 131(H) 74 - 99 mg/dL 06/04/2018 7:44 AM [facility] LABORATORY SERVICES [facility] COMMENT, GLU POC Notified RN/MD 06/04/2018 7:44 AM [facility] LABORATORY SERVICES [facility] CHIROPRACTOR ASSISTANT NAME POC JAMIE PAYNE 06/04/2018 7:44 AM [email or web address] Whole blood specimen (specimen) 06/04/2018 7:29 AM [employer] 06/04/2018 7:44 AM [employer] Jam Kahn MD POINT OF CARE TESTJERONIMO G Performing Organization Address [facility]/ZIP Co de Phone Number [facility] [facility] CLIA# [id number] [address] [place] [address] * (ABNORMAL) POC GLUCOSE (06/04/2018 6:29 AM [employer]) GLUCOSE POC 136(H) 74 - 99 mg/dL 06/04/2018 6:43 AM [facility] LABORATORY SERVICES [facility] CHIROPRACTOR ASSISTANT NAME POC SABINA LASSITERI 06/04/2018 6:43 AM [employer] LABORATORY SERVICES [facility] Whole blood specimen (specimen) 06/04/2018 6:29 AM [employer] 06/04/2018 6:43 AM [employer] Jam Kahn MD POINT OF CARE FLY Serrano Performing Organization Address [facility]/ZIP Co de Phone Number [facility]# [id number] [address] [place] [address] * (ABNORMAL) POC GLUCOSE (06/04/2018 5:42 AM [employer]) GLUCOSE POC 128(H) 74 - 99 mg/dL 06/04/2018 5:54 AM [employer] [facility] LABORATORY [facility] CHIROPRACTOR ASSISTANT NAME PARIS ROMERO 06/04/2018 5:54 AM [facility] Whole blood specimen (specimen) 06/04/2018 5:42 AM [employer] 06/04/2018 5:54 AM [employer] Jam Kahn MD POINT OF CARE FLY Serrano Performing Organization Address [facility] Co de Phone Number [facility] [employer] [facility]# [id number] [address] [place] [address] * (ABNORMAL) TRIGLYCERIDE (06/04/2018 4:40 AM [employer]) TRIGLYCERIDE 628(H) <150 mg/dL 06/04/2018 5:27 AM [employer] [facility] [facility] Blood Venipuncture / Unknown 06/04/2018 4:40 AM [employer] 06/04/2018 4:45 AM [employer] Narrative [facility] LABORATORY [facility] - 06/04/2018 5:27 AM [employer] TRIGLYCERIDES ? mg/dL Normal ?< 150 Borderline High ?150 - 199 High ? 200 - 499 Very High ? >= 500 Based on AHA/NCEP Guidelines. Jam Kahn MD CHEMISTRY ORDERABLES [facility]AT[facility] - [facility] CLIA# [id number] [address] [place] [address] * (ABNORMAL) COMPREHENSIVE METABOLIC PANEL (06/04/2018 4:40 AM [employer]) SODIUM 139 136 - 145 mmol/L 06/04/2018 5:27 AM [facility] LABORATORY SERVICES - [facility] POTASSIUM 3.7 3.5 - 5.0 mmol/L 06/04/2018 5:27 AM [facility] LAB[facility]ATORY SERVICES - [facility] CHLORIDE 101 98 - 107 mmol/L 06/04/2018 5:27 AM [facility] - [facility] CO2 26 22 - 29 mmol/L 06/04/2018 5:27 AM [facility] - [facility] CALCIUM 8.2(L) 8.6 - 10.2 mg/dL 06/04/2018 5:27 AM [facility] - [facility] BUN 8 6 - 20 mg/dL 06/04/2018 5:27 AM [facility] CREATININE 0.57 0.51 - 0.95 mg/dL 06/04/2018 5:27 AM [facility] GLUCOSE 153(H) 74 - 99 mg/dL 06/04/2018 5:27 AM [facility] - [facility] TOTAL PROTEIN 5.5(L) 6.7 - 8.6 g/dL 06/04/2018 5:27 AM [facility] - [facility] ALBUMIN 3.5 3.5 - 5.2 g/dL 06/04/2018 5:27 AM [facility] - [facility] BILIRUBIN TOTAL <0.2(L) 0.3 - 1.2 mg/dL 06/04/2018 5:27 AM [facility]ATORY SERVICES - [facility] ALKALINE PHOSPHATASE 39 35 - 104 U/L 06/04/2018 5:27 AM [facility] AST 24 <33 U/L 06/04/2018 5:27 AM [facility] ALT 22 <34 U/L 06/04/2018 5:27 AM [facility] GFR >60 >=60 mL/min/1.7 3 sq meter 06/04/2018 5:27 AM [facility] Comment: eGFR has not [...] mL/min/1.7 3 sq meter 06/04/2018 5:27 AM [facility] ANION GAP 12 8 - 16 mmol/L 06/04/2018 5:27 AM [facility] Blood Venipuncture / Unknown 06/04/2018 4:40 AM [employer] 06/04/2018 4:45 AM [employer] Narrative [facility] [facility] - 06/04/2018 5:27 AM [employer] Samples containing indocyanine green cause interferences on Total and/or Direct Bilirubin and must not be measured. Jam Kahn MD CHEMISTRY ORDERABLES [facility]# [id number] [address] [facility] [place] [address] * (ABNORMAL) POC GLUCOSE (06/04/2018 4:35 AM [employer]) GLUCOSE POC 135(H) 74 - 99 mg/dL 06/04/2018 4:53 AM [facility] CHIROPRACTOR ASSISTANT NAME POC TAMIKO LASSITER 06/04/2018 4:53 AM [facility] [facility] Whole blood specimen (specimen) 06/04/2018 4:35 AM [employer] 06/04/2018 4:53 AM [employer] Jam Kahn MD POINT OF CARE TESTIN G [facility] [id number] [address] [place] [address] * (ABNORMAL) POC GLUCOSE (06/04/2018 3:32 AM [employer]) GLUCOSE POC 119(H) 74 - 99 mg/dL 06/04/2018 3:44 AM [employer] [facility] LABORATORY SERVICES [facility] CHIROPRACTOR ASSISTANT NAME POC PARIS CALDERON 06/04/2018 3:44 AM [employer] [facility] LABORATORY SERVICES [facility] Whole blood specimen (specimen) 06/04/2018 3:32 AM [employer] 06/04/2018 3:44 AM [employer] Jam Kahn MD POINT OF CARE FLY Serrano Performing Organization Address [facility]/ZIP Co de Phone Number [facility] LABORATORY SERVICES [facility] CLIA# [id number] [address] [place] [address] * (ABNORMAL) POC GLUCOSE (06/04/2018 2:27 AM [employer]ER) GLUCOSE POC 107(H) 74 - 99 mg/dL 06/04/2018 2:43 AM [employer] [facility] LABORATORY SERVICES [facility] CHIROPRACTOR ASSISTANT NAME POC TAMIKO LASSITER 06/04/2018 2:43 AM [employer] LABORATORY SERVICES [facility] Whole blood specimen (specimen) 06/04/2018 2:27 AM [employer] 06/04/2018 2:42 AM [employer] Jam Kahn MD POINT OF CARE TESTJERONIMO Serrano Performing Organization Address City/[facility]/ZIP Co de Phone Number [facility] [id number] [address] [place] [address] * (ABNORMAL) POC GLUCOSE (06/04/2018 1:23 AM [employer] FOOTB[employer]ER) GLUCOSE POC 115(H) 74 - 99 mg/dL 06/04/2018 1:35 AM [employer] [facility] LABORATORY SERVICES [facility] CHIROPRACTOR ASSISTANT NAME POC PARIS CALDERON 06/04/2018 1:35 AM [employer] [email or web address] Whole blood specimen (specimen) 06/04/2018 1:23 AM [employer] 06/04/2018 1:35 AM [employer] Jam Kahn MD POINT OF CARE TESTIN Maggie Performing Organization Address City/[facility]/ZIP Co de Phone Number [facility] LABORATORY [facility] CLIA# [id number] [address] [place] [address] * (ABNORMAL) POC GLUCOSE (06/04/2018 12:31 AM [employer]ER) GLUCOSE POC 132(H) 74 - 99 mg/dL 06/04/2018 12:44 AM [employer] [email or web address] CHIROPRACTOR ASSISTANT NAME TAMIKO GIVENS 06/04/2018 12:44 AM [employer] LABORATORY SERVICES [facility] Whole blood specimen (specimen) 06/04/2018 12:31 AM [employer] 06/04/2018 12:44 AM [employer] Jam Kahn MD POINT OF CARE TESTJERONIMO Maggie Performing Organization Address [facility] Co de Phone Number [facility] [employer] [facility] CLIA# [id number] [address] [place] [address] * (ABNORMAL) POC GLUCOSE (06/03/2018 11:31 PM [employer]ER) GLUCOSE POC 136(H) 74 - 99 mg/dL 06/03/2018 11:43 PM [email or web address] CHIROPRACTOR ASSISTANT NAME POC PARIS CALDERON 06/03/2018 11:43 PM [employer] LABORATORY SERVICES [facility] Whole blood specimen (specimen) 06/03/2018 11:31 PM [employer] 06/03/2018 11:43 PM [employer] Jam Kahn MD POINT OF CARE TESTJERONIMO Serrano Performing Organization Address [facility]/ZIP Co de Phone Number [email or web address] [id number] [address] [place] [address] * (ABNORMAL) POC GLUCOSE (06/03/2018 10:29 PM [employer]ER) GLUCOSE POC 140(H) 74 - 99 mg/dL 06/03/2018 10:41 PM [facility] CHIROPRACTOR ASSISTANT NAME TAMIKO GIVENS 06/03/2018 10:41 PM [facility] Whole blood specimen (specimen) 06/03/2018 10:29 PM [employer] 06/03/2018 10:41 PM [employer] Jam Kahn MD POINT OF CARE TESTJERONIMO Serrano [facility] LABORATORY [facility]# [id number] [address] [place] [address] * (ABNORMAL) POC GLUCOSE (06/03/2018 9:31 PM [employer]OT[employer]ER) GLUCOSE POC 155(H) 74 - 99 mg/dL 06/03/2018 9:44 PM [facility] CHIROPRACTOR ASSISTANT NAME PARIS ROMERO 06/03/2018 9:44 PM [employer] FOOT[employer] LABORATORY SERVICES [facility] Whole blood specimen (specimen) 06/03/2018 9:31 PM [employer] 06/03/2018 9:44 PM [employer]ER Jam Kahn MD POINT OF CARE TESTJERONIMO Serrano [facility] [employer] [facility]# [id number] [address] [place] [address] * (ABNORMAL) POC GLUCOSE (06/03/2018 8:25 PM [employer] FOOTB[employer]ER) GLUCOSE POC 152(H) 74 - 99 mg/dL 06/03/2018 8:39 PM [employer] FOOTB[employer]ER [facility] LABORATORY SERVICES - [facility] CHIROPRACTOR ASSISTANT NAME TAMIKO GIVENS 06/03/2018 8:39 PM [employer] Whole blood specimen (specimen) 06/03/2018 8:25 PM [employer] 06/03/2018 8:39 PM [employer] Jam Kahn MD POINT OF CARE TESTJERONIMO Serrano [facility] CLIA# [id number] [address] [place] [address] * (ABNORMAL) POC GLUCOSE (06/03/2018 7:36 PM [employer]OT[employer]ER) GLUCOSE POC 170(H) 74 - 99 mg/dL 06/03/2018 7:56 PM [employer] FOOTB[employer]ER [facility] LABORATORY [facility] CHIROPRACTOR ASSISTANT NAME POC TAMIKO LASSITER 06/03/2018 7:56 PM [employer]OT[employer]ER [facility] LABORATORY [facility] Whole blood specimen (specimen) 06/03/2018 7:36 PM [employer] 06/03/2018 7:56 PM [employer] Jam Kahn MD POINT OF CARE TESTJERONIMO Serrano Performing Organization Address [facility]/ZIP Co de Phone Number [facility] CLIA# [id number] [address] [place] [address] * (ABNORMAL) POC GLUCOSE (06/03/2018 6:28 PM [employer]) GLUCOSE POC 118(H) 74 - 99 mg/dL 06/03/2018 6:45 PM [employer] [facility] LABORATORY [facility] CHIROPRACTOR ASSISTANT NAME POC EDA ESPARZA 06/03/2018 6:45 PM [employer]ER [facility] LABORATORY [facility] Whole blood specimen (specimen) 06/03/2018 6:28 PM [employer] 06/03/2018 6:45 PM [employer] Jam Kahn MD POINT OF CARE TESTJERONIMO Maggie Performing Organization Address City/[facility]/ZIP Co de Phone Number [facility] CLIA# [id number] [address] [place] [address] * (ABNORMAL) TRIGLYCERIDE (06/03/2018 5:29 PM [employer]) TRIGLYCERIDE 520(H) <150 mg/dL 06/03/2018 6:25 PM [employer] [facility] Blood Venipuncture / Unknown 06/03/2018 5:29 PM [employer] 06/03/2018 5:33 PM [employer] Narrative [facility] - 06/03/2018 6:25 PM [employer] TRIGLYCERIDES ? mg/dL Normal ?< 150 Borderline High ?150 - 199 High ? 200 - 499 Very High ? >= 500 Based on AHA/NCEP Guidelines. Jam Kahn MD CHEMISTRY ORDERABLES Performing Organization Address [facility] Co de Phone Number [facility]# [id number] [address] [place] [address] * (ABNORMAL) POC GLUCOSE (06/03/2018 5:27 PM [employer]) GLUCOSE POC 115(H) 74 - 99 mg/dL 06/03/2018 5:57 PM [employer] [facility] CHIROPRACTOR ASSISTANT NAME POC ALIZE ROBERTS 06/03/2018 5:57 PM [employer] [facility] Whole blood specimen (specimen) 06/03/2018 5:27 PM [employer] 06/03/2018 5:57 PM [employer] Jam Kahn MD POINT OF CARE TESTIN G Performing Organization Address City/[facility]/ZIP Co de Phone Number [facility]# [id number] [address] [place] [address] * (ABNORMAL) POC GLUCOSE (06/03/2018 4:32 PM [employer]ER) GLUCOSE POC 124(H) 74 - 99 mg/dL 06/03/2018 4:46 PM [employer] FOOTB[employer]ER [facility] LABORATORY [facility] CHIROPRACTOR ASSISTANT NAME POC ALIZE ROBERTS 06/03/2018 4:46 PM [employer]ER [facility] LABORATORY [facility] Whole blood specimen (specimen) 06/03/2018 4:32 PM [employer] 06/03/2018 4:46 PM [employer] Jam Kahn MD POINT OF CARE TESTJERONIMO Serrano Performing Organization Address [facility] Co de Phone Number [facility] [facility] CLIA# [id number] [address] [place] [address] * (ABNORMAL) POC GLUCOSE (06/03/2018 3:31 PM [employer] FOOTB[employer]ER) GLUCOSE POC 107(H) 74 - 99 mg/dL 06/03/2018 3:47 PM [employer] FOOTB[employer]ER [facility] LABORATORY [facility] CHIROPRACTOR ASSISTANT NAME POC ALIZE ROBERTS 06/03/2018 3:47 PM [employer]OT[employer]ER [facility] LABORATORY [facility] Whole blood specimen (specimen) 06/03/2018 3:31 PM [employer] 06/03/2018 3:47 PM [employer] Jam Kahn MD POINT OF CARE TESTJERONIMO Maggie Performing Organization Address [facility] Co nm Phone Number [facility] [employer] [facility] CLIA# [id number] [address] [place] [address] * (ABNORMAL) POC GLUCOSE (06/03/2018 2:37 PM [employer] FOOTBALLER) GLUCOSE POC 108(H) 74 - 99 mg/dL 06/03/2018 2:53 PM [employer] FOOTB[employer]ER [facility] LABORATORY [facility] CHIROPRACTOR ASSISTANT NAME POC EDA ESPARZA 06/03/2018 2:53 PM [employer]ER [facility] LABORATORY [facility] Whole blood specimen (specimen) 06/03/2018 2:37 PM [employer] 06/03/2018 2:53 PM [employer] Jam Kahn MD POINT OF CARE TESTJERONIMO Serrano Performing Organization Address [facility] Co de Phone Number [facility] [employer] [facility]# [id number] [address] [place] [address] * (ABNORMAL) POC GLUCOSE (06/03/2018 1:32 PM [employer] FOOTB[employer]ER) GLUCOSE POC 116(H) 74 - 99 mg/dL 06/03/2018 1:50 PM [employer] FOOTB[employer]ER [facility] LABORATORY [facility] CHIROPRACTOR ASSISTANT NAME POC EDA ESPARZA 06/03/2018 1:50 PM [employer] FOOTBALLER [facility] LABORATORY SERVICES [facility] Whole blood specimen (specimen) 06/03/2018 1:32 PM [employer] 06/03/2018 1:50 PM [employer] Jam Kahn MD POINT OF CARE TESTJERONIMO Serrano [facility] [employer] [facility]# [id number] [address] [place] [address] * (ABNORMAL) POC GLUCOSE (06/03/2018 12:33 PM [employer] FOOTB[employer]ER) GLUCOSE POC 131(H) 74 - 99 mg/dL 06/03/2018 12:47 PM [employer] FOOTB[employer]ER [facility] LABORATORY [facility] CHIROPRACTOR ASSISTANT NAME POC ALIZE ROBERTS 06/03/2018 12:47 PM [employer] [email or web address] Whole blood specimen (specimen) 06/03/2018 12:33 PM [employer] 06/03/2018 12:47 PM [employer] Jam Kahn MD POINT OF CARE TESTJERONIMO Serrano [facility] [employer] [facility]# [id number] [address] [place] [address] * (ABNORMAL) POC GLUCOSE (06/03/2018 11:34 AM [employer] FOOTBALLER) GLUCOSE POC 152(H) 74 - 99 mg/dL 06/03/2018 11:49 AM [employer] LABORATORY SERVICES [facility] CHIROPRACTOR ASSISTANT NAME ALIZE ZIMMER 06/03/2018 11:49 AM [employer] FOOTB[employer]ER [facility] LABORATORY SERVICES [facility] Whole blood specimen (specimen) 06/03/2018 11:34 AM [employer] 06/03/2018 11:49 AM [employer] Jam Kahn MD POINT OF CARE TESTIN Maggie Performing Organization Address City/[facility]/ZIP Co de Phone Number [facility] CLIA# [id number] [address] [place] [address] * (ABNORMAL) POC GLUCOSE (06/03/2018 10:44 AM [employer] FOOTBALLER) GLUCOSE POC 134(H) 74 - 99 mg/dL 06/03/2018 10:58 AM [employer] FOOTBALLER [facility] LABORATORY [facility] CHIROPRACTOR ASSISTANT NAME POC VILMA, EDA 06/03/2018 10:58 AM [employer] FOOT[employer]ER [email or web address] Whole blood specimen (specimen) 06/03/2018 10:44 AM [employer] 06/03/2018 10:58 AM [employer]OT[employer]ER Jam Kahn MD POINT OF CARE TESTJERONIMO Maggie Performing Organization Address [facility]/ZIP Co de Phone Number [facility] [employer] [facility] CLIA# [id number] [address] [place] [address] * (ABNORMAL) POC GLUCOSE (06/03/2018 9:41 AM [employer]ER) GLUCOSE POC 130(H) 74 - 99 mg/dL 06/03/2018 10:05 AM [employer] [email or web address] CHIROPRACTOR ASSISTANT NAME POC VILMA, EDA 06/03/2018 10:05 AM [employer] [email or web address] Whole blood specimen (specimen) 06/03/2018 9:41 AM [employer]ER 06/03/2018 10:04 AM [employer] Jam Kahn MD POINT OF CARE TESTJERONIMO Maggie Performing Organization Address [facility]/ZIP Co de Phone Number [facility] LABORATORY [facility] CLIA# [id number] [address] [place] [address] * (ABNORMAL) POC GLUCOSE (06/03/2018 8:29 AM [employer] FOOT[employer]ER) GLUCOSE POC 136(H) 74 - 99 mg/dL 06/03/2018 8:41 AM [employer] FOOTB[employer]ER [facility] LABORATORY SERVICES [facility] CHIROPRACTOR ASSISTANT NAME YULIANA TRENT 06/03/2018 8:41 AM [employer] [facility] Whole blood specimen (specimen) 06/03/2018 8:29 AM [employer]ER 06/03/2018 8:41 AM [employer]OT[employer]ER Jam Kahn MD POINT OF CARE TESTIN G [facility] [employer] [facility]# [id number] [address] [place] [address] * (ABNORMAL) POC GLUCOSE (06/03/2018 7:17 AM [employer]ER) GLUCOSE POC 134(H) 74 - 99 mg/dL 06/03/2018 7:31 AM [employer]OT[employer]ER [facility] LABORATORY [facility] CHIROPRACTOR ASSISTANT NAME POC JESSICA REGALADO 06/03/2018 7:31 AM [facility] LABORATORY [facility] Whole blood specimen (specimen) 06/03/2018 7:17 AM [employer] 06/03/2018 7:31 AM [employer]ER Mc Stinson MD POINT OF CARE TESTIN G [facility] [employer] [facility]# [id number] [address] [place] [address] * (ABNORMAL) POC GLUCOSE (06/03/2018 6:25 AM [employer]ER) GLUCOSE POC 146(H) 74 - 99 mg/dL 06/03/2018 6:56 AM [employer] FOOT[employer]ER [facility] LABORATORY [facility] CHIROPRACTOR ASSISTANT NAME JESSICA JACKSON 06/03/2018 6:56 AM [employer] [facility] LABORATORY SERVICES [facility] Whole blood specimen (specimen) 06/03/2018 6:25 AM [employer]ER 06/03/2018 6:56 AM [employer] Mc Stinson MD POINT OF CARE TESTJERONIMO Serrano Performing Organization Address [facility] Co de Phone Number [facility] [employer] [facility] [id number] [address] [place] [address] * (ABNORMAL) POC GLUCOSE (06/03/2018 5:20 AM [employer]) GLUCOSE POC 135(H) 74 - 99 mg/dL 06/03/2018 5:38 AM [employer] [facility] LABORATORY [facility] CHIROPRACTOR ASSISTANT NAME POC JESSICA REGALADO 06/03/2018 5:38 AM [employer] [facility] LABORATORY [facility] Whole blood specimen (specimen) 06/03/2018 5:20 AM [employer] 06/03/2018 5:38 AM [employer] Mc Stinson MD POINT OF CARE FLY Serrano Performing Organization Address [facility] Co de Phone Number [facility] [employer] [facility]# [id number] [address] [place] [address] * C-REACTIVE PROTEIN (06/03/2018 4:32 AM [employer]) CRP 1.9 <5.0 mg/L 06/03/2018 11:38 AM [employer] [facility] LABORATORY [facility] Blood Venipuncture / Unknown 06/03/2018 4:32 AM [employer] 06/03/2018 5:08 AM [employer] Jam Kahn MD CHEMISTRY ORDERABLES Performing Organization Address [facility] Co de Phone Number [facility] [employer] [facility]# [id number] [address] [place] [address] * (ABNORMAL) TRIGLYCERIDE (06/03/2018 4:32 AM [employer]ER) TRIGLYCERIDE 654(H) <150 mg/dL 06/03/2018 11:38 AM [facility] LABORATORY [facility] Blood Venipuncture / Unknown 06/03/2018 4:32 AM [employer] 06/03/2018 5:08 AM [employer]ER Narrative [facility] LABORATORY [facility] - 06/03/2018 11:38 AM [employer]ER TRIGLYCERIDES ? mg/dL Normal ?< 150 Borderline High ?150 - 199 High ? 200 - 499 Very High ? >= 500 Based on AHA/NCEP Guidelines. Jam Kahn MD CHEMISTRY ORDERABLES Performing Organization Address [facility] Co de Phone Number [facility]# [id number] [address] [place] [address] * LIPASE (06/03/2018 4:32 AM [employer]ER) Pathologist [facility] LIPASE 28 13 - 60 U/L 06/03/2018 5:55 AM [facility] [employer] [facility] Blood Venipuncture / Unknown 06/03/2018 4:32 AM [employer] 06/03/2018 5:08 AM [employer] Mc Stinson MD CHEMISTRY ORDERABLES Performing Organization Address [facility] Co de Phone Number [facility] [employer] [facility]# [id number] [address] [place] [address] * (ABNORMAL) COMPREHENSIVE METABOLIC PANEL (06/03/2018 4:32 AM [employer]ER) SODIUM 137 136 - 145 mmol/L 06/03/2018 5:56 AM [facility] [employer] LABORATORY [facility] POTASSIUM 4.1 3.5 - 5.0 mmol/L 06/03/2018 5:56 AM [facility] [employer] LABORATORY SERVICES [facility] CHLORIDE 100 98 - 107 mmol/L 06/03/2018 5:56 AM [facility] LABORATORY SERVICES [facility] CO2 26 22 - 29 mmol/L 06/03/2018 5:56 AM [facility] [employer] LABORATORY SERVICES - . [facility] CALCIUM 9.0 8.6 - 10.2 mg/dL 06/03/2018 5:56 AM [facility] [employer] LABORATORY SERVICES - . [facility] BUN 12 6 - 20 mg/dL 06/03/2018 5:56 AM [email or web address]. [facility] CREATININE 0.58 0.51 - 0.95 mg/dL 06/03/2018 5:56 AM [facility] [employer] LABORATORY SERVICES - . [facility] GLUCOSE 149(H) 74 - 99 mg/dL 06/03/2018 5:56 AM [facility] [employer] LABORATORY [facility] - . [facility] TOTAL PROTEIN 6.3(L) 6.7 - 8.6 g/dL 06/03/2018 5:56 AM [facility] [employer] LABORATORY [facility] - . [facility] ALBUMIN 4.2 3.5 - 5.2 g/dL 06/03/2018 5:56 AM [facility] [employer] LABORATORY [facility] - . [facility] BILIRUBIN TOTAL <0.2(L) 0.3 - 1.2 mg/dL 06/03/2018 5:56 AM [facility] [employer] LABORATORY [facility] ALKALINE PHOSPHATASE 52 35 - 104 U/L 06/03/2018 5:56 AM [facility] [employer] LABORATORY [facility] AST 20 <33 U/L 06/03/2018 5:56 AM [facility] [employer] LABORATORY [facility] Comment: Hemolysis present. Result may be falsely elevated. ALT 16 <34 U/L 06/03/2018 5:56 AM [facility] [employer] LABORATORY [facility] GFR >60 >=60 mL/min/1.7 3 sq meter 06/03/2018 5:56 AM [employer] LABORATORY [facility] Comment: eGFR has not [...] mL/min/1.7 3 sq meter 06/03/2018 5:56 AM [facility] [employer] [facility] ANION GAP 11 8 - 16 mmol/L 06/03/2018 5:56 AM [facility] [facility] Blood Venipuncture / Unknown 06/03/2018 4:32 AM [employer] 06/03/2018 5:08 AM [facility] [employer] LABORATORY [facility] - [facility] - 06/03/2018 5:56 AM [employer]ER Samples containing indocyanine green cause interferences on Total and/or Direct Bilirubin and must not be measured. Mc Stinson MD CHEMISTRY ORDERABLES [facility] [employer] [facility] CLIA# [id number] [address] [place] [place] [address] * (ABNORMAL) CBC WITH DIFFERENTIAL (06/03/2018 4:32 AM [employer]ER) WBC 10.0(H) 4.0 - 9.8 K/uL 06/03/2018 5:30 AM [facility] [employer] [facility] RBC 3.90 3.90 - 4.90 M/uL 06/03/2018 5:30 AM [facility] [employer] [facility]. [facility] HEMOGLOBIN 11.6(L) 11.8 - 14.8 g/dL 06/03/2018 5:30 AM [facility] [employer] [facility]. [facility] HEMATOCRIT 36.2 35.5 - 44.0 % 06/03/2018 5:30 AM [facility] [employer] [facility]. [facility] MCV 92.8 82.0 - 99.0 fL 06/03/2018 5:30 AM [facility] [employer] [facility] MCH 29.7 27.2 - 32.6 pg 06/03/2018 5:30 AM [facility] [employer] [facility]. [facility] MCHC 32.0 31.5 - 35.5 g/dL 06/03/2018 5:30 AM [facility] [employer] [facility]. [facility] RDW 13.8 11.5 - 14.5 % 06/03/2018 5:30 AM [facility] [employer] [facility]. [facility] RDW-STDEV 47.0 37.1 - 48.7 fL 06/03/2018 5:30 AM [facility] [employer] [facility]. [facility] PLATELETS 265 140 - 350 K/uL 06/03/2018 5:30 AM [facility] [employer] [facility]. [facility] MPV 9.2(L) 9.3 - 12.4 fL 06/03/2018 5:30 AM [facility] [employer] [facility] NEUTROPHILS 56 % 06/03/2018 5:30 AM [facility] [employer] [facility] LYMPHOCYTES 37 % 06/03/2018 5:30 AM [facility] [employer] [facility]. [facility] MONOCYTES 5 % 06/03/2018 5:30 AM [facility] [employer] [facility]. [facility] EOSINOPHILS 1 % 06/03/2018 5:30 AM [facility] [employer] [facility]. [facility] BASOPHILS 0 % 06/03/2018 5:30 AM [facility] [employer] [facility]. [facility] IMMATURE GRANULOCYTES 1 % 06/03/2018 5:30 AM [facility] [employer] [facility]. [facility] Comment:IG (Immature Granulo cyte) count includes Metamyelocytes, Myelocytes, and Promyelocytes NEUTROPHIL ABSOLUTE 5.56 1.90 - 7.00 K/uL 06/03/2018 5:30 AM [facility] [employer] [facility]. [facility] LYMPHOCYTE ABSOLUTE 3.70 0.70 - 4.50 K/uL 06/03/2018 5:30 AM [facility] [employer] [facility] MONOCYTE ABSOLUTE 0.51 0.10 - 1.30 K/uL 06/03/2018 5:30 AM [facility] [employer] [facility]. [facility] EOSINOPHIL ABSOLUTE 0.13 0.00 - 0.70 K/uL 06/03/2018 5:30 AM [facility] [employer] [facility]. [facility] BASOPHILS ABSOLUTE 0.04 0.00 - 0.20 K/uL 06/03/2018 5:30 AM [facility] [employer] [facility]. [facility] IMMATURE GRANULOCYTES ABSOLUTE 0.07(H) 0.00 - 0.03 K/uL 06/03/2018 5:30 AM [facility] [employer] [facility]. [facility] Blood Venipuncture / Unknown 06/03/2018 4:32 AM [employer] 06/03/2018 5:08 AM [employer] Mc Stinson MD HEMATOLOGY ORDERABLE S [facility] [employer] [facility]# [id number] [address] [place] [address] * (ABNORMAL) POC GLUCOSE (06/03/2018 4:20 AM [employer]ER) GLUCOSE POC 158(H) 74 - 99 mg/dL 06/03/2018 4:52 AM [facility] LABORATORY [facility] CHIROPRACTOR ASSISTANT NAME JESSICA JACKSON 06/03/2018 4:52 AM [employer]ER [facility] LABORATORY [facility] Whole blood specimen (specimen) 06/03/2018 4:20 AM [employer]ER 06/03/2018 4:52 AM [employer]ER Mc Stinson MD POINT OF CARE TESTJERONIMO Serrano Performing Organization Address [facility]/State/ZIP Co de Phone Number [facility] [employer] [facility]# [id number] [address] [place] [address] * (ABNORMAL) POC GLUCOSE (06/03/2018 3:21 AM [employer]ER) GLUCOSE POC 176(H) 74 - 99 mg/dL 06/03/2018 3:38 AM [facility] LABORATORY [facility] CHIROPRACTOR ASSISTANT NAME JESSICA JACKSON 06/03/2018 3:38 AM [facility] [employer] [facility] Whole blood specimen (specimen) 06/03/2018 3:21 AM [employer]ER 06/03/2018 3:38 AM [employer]ER Mc Stinson MD POINT OF CARE TESTJERONIMO Serrano [facility] [employer] [facility]# [id number] [address] [place] [address] * (ABNORMAL) POC GLUCOSE (06/03/2018 2:17 AM [employer]OTB[employer]ER) GLUCOSE POC 180(H) 74 - 99 mg/dL 06/03/2018 2:33 AM [employer]ER [facility] LABORATORY [facility] CHIROPRACTOR ASSISTANT NAME JESSICA JACKSON 06/03/2018 2:33 AM [employer]ER [facility] LABORATORY SERVICES [facility] Whole blood specimen (specimen) 06/03/2018 2:17 AM [employer]ER 06/03/2018 2:33 AM [employer]ER Mc Stinson MD POINT OF CARE TESTIN G [facility] CLIA# [id number] [address] [place] [address] * (ABNORMAL) POC GLUCOSE (06/03/2018 1:21 AM [employer]ER) GLUCOSE POC 190(H) 74 - 99 mg/dL 06/03/2018 1:40 AM [employer]OT[employer]ER [facility] LABORATORY [facility] CHIROPRACTOR ASSISTANT NAME POC BRANDON REGALADON 06/03/2018 1:40 AM [employer]ER [facility] LABORATORY [facility] Whole blood specimen (specimen) 06/03/2018 1:21 AM [employer]ER 06/03/2018 1:40 AM [employer]ER Mc Stinson MD POINT OF CARE TESTIN G Performing Organization Address City/[facility]/ZIP Co de Phone Number [facility] [employer] [facility] CLIA# [id number] [address] [place] [address] * (ABNORMAL) POC GLUCOSE (06/03/2018 12:14 AM RU[employer] FOOTB[employer]ER) GLUCOSE POC 171(H) 74 - 99 mg/dL 06/03/2018 12:39 AM [employer]ER [facility] LABORATORY [facility] CHIROPRACTOR ASSISTANT NAME POC LUCAS BEASLEY 06/03/2018 12:39 AM [employer]ER [facility] LABORATORY [facility] Whole blood specimen (specimen) 06/03/2018 12:14 AM [employer]ER 06/03/2018 12:39 AM [employer]ER Ceasar Kelley MD POINT OF CARE TESTI NG [facility] [employer] [facility] CLIA# [id number] [address] [place] [address] * (ABNORMAL) POC GLUCOSE (06/02/2018 11:07 PM [employer]ER) GLUCOSE POC 167(H) 74 - 99 mg/dL 06/02/2018 11:26 PM [employer] LABORATORY SERVICES - [facility] CHIROPRACTOR ASSISTANT NAME POC LOIDA SALINAS 06/02/2018 11:26 PM [facility] LABORATORY SERVICES - [facility] Whole blood specimen (specimen) 06/02/2018 11:07 PM [employer] 06/02/2018 11:26 PM [employer] Ceasar Kelley MD POINT OF CARE TESTI NG Performing Organization Address City/State/[facility] Co de Phone Number [facility] LABORATORY SERVICES [facility] CLIA# [id number] [address] [place] [address] * URINALYSIS WITH REFLEX MICROSCOPIC (06/02/2018 7:11 PM [employer]) COLOR UA Yellow Pale to Dark Yellow 06/02/2018 7:26 PM [facility] [employer] LABORATORY SERVICES - [facility] CLARITY UA Clear Clear 06/02/2018 7:26 PM [facility] [employer] LABORATORY SERVICES - [facility] SPECIFIC GRAVITY UA 1.013 1.003 - 1.035 06/02/2018 7:26 PM [facility] [employer] LABORATORY SERVICES - [facility] PH UA 7.0 5.0 - 8.0 06/02/2018 7:26 PM [facility] [employer] LABORATORY SERVICES - [facility] LEUKOCYTE ESTERASE UA Negative Negative 06/02/2018 7:26 PM [facility] [employer] LABORATORY SERVICES - [facility] NITRITE UA Negative Negative 06/02/2018 7:26 PM [facility] [employer] LABORATORY SERVICES - [facility] PROTEIN UA Negative Negative 06/02/2018 7:26 PM [facility] [employer] LABORATORY SERVICES - [facility] GLUCOSE UA Negative Negative 06/02/2018 7:26 PM [facility] [employer] LABORATORY SERVICES - . [facility] KETONES UA Negative Negative 06/02/2018 7:26 PM [facility] [employer] LABORATORY SERVICES - [facility] UROBILINOGEN UA Normal <2.0 mg/dL 9 7:26 PM [employer] LABORATORY SERVICES - [facility] BILIRUBIN UA Negative Negative 06/02/2018 7:26 PM [employer]ER [facility] LABORATORY [facility] BLOOD UA Negative Negative 06/02/2018 7:26 PM [employer]ER [facility] LABORATORY [facility] Urine URINE SPECIMEN OBTAINED BY CLEAN CATCH PROCEDURE / Unknown Collection / Unknown 06/02/2018 7:11 PM [employer] 06/02/2018 7:11 PM [employer] Ceasar Kelley MD URINE ORDERABLES Performing Organization Address [facility] Co de Phone Number [facility] [id number] [address] [place] [address] * (ABNORMAL) TRIGLYCERIDE (06/02/2018 6:50 PM [employer]ER) Pathologist [facility] TRIGLYCERIDE 1,009(H) <150 mg/dL 06/02/2018 8:26 PM [employer]ER [facility] LABORATORY [facility] Blood Venipuncture / Unknown 06/02/2018 6:50 PM [employer] 06/02/2018 7:03 PM [employer]ER Narrative [facility] LABORATORY [facility] - 06/02/2018 8:26 PM [employer] TRIGLYCERIDES ? mg/dL Normal ?< 150 Borderline High ?150 - 199 High ? 200 - 499 Very High ? >= 500 Based on AHA/NCEP Guidelines. Ceasar Kelley MD CHEMISTRY ORDERABLE S Performing Organization Address [facility] de Phone Number [facility]# [id number] [address] [place] [address] * LIPASE (06/02/2018 6:50 PM [employer]OTB[employer]ER) Pathologist [facility] LIPASE 49 13 - 60 U/L 06/02/2018 7:59 PM [employer]ER [facility] LABORATORY [facility] Blood Venipuncture / Unknown 06/02/2018 6:50 PM [employer] 06/02/2018 7:03 PM [employer] Ceasar Kelley MD CHEMISTRY ORDERABLE S [facility] [employer] SERVICES - [facility]# [id number] [address] [place] [address] * (ABNORMAL) COMPREHENSIVE METABOLIC PANEL (06/02/2018 6:50 PM [employer]) SODIUM 138 136 - 145 mmol/L 06/02/2018 8:00 PM [facility] [employer] [facility] POTASSIUM 4.4 3.5 - 5.0 mmol/L 06/02/2018 8:00 PM [facility] [employer] [facility] - [facility] Comment: Slightly hemolyzed. Result may be falsely elevated. CHLORIDE 98 98 - 107 mmol/L 06/02/2018 8:00 PM [facility] [employer] [facility] CO2 25 22 - 29 mmol/L 06/02/2018 8:00 PM [facility] [employer] [facility] CALCIUM 10.4(H) 8.6 - 10.2 mg/dL 06/02/2018 8:00 PM [facility] [employer] [facility] BUN 11 6 - 20 mg/dL 06/02/2018 8:00 PM [facility] LABORATORY [facility] CREATININE 0.58 0.51 - 0.95 mg/dL 06/02/2018 8:00 PM [facility] [employer] [facility] GLUCOSE 174(H) 74 - 99 mg/dL 06/02/2018 8:00 PM [facility] [employer] [facility] TOTAL PROTEIN 7.2 6.7 - 8.6 g/dL 06/02/2018 8:00 PM [facility] [employer] [facility] ALBUMIN 4.8 3.5 - 5.2 g/dL 06/02/2018 8:00 PM [facility] [employer] [facility] BILIRUBIN TOTAL <0.2(L) 0.3 - 1.2 mg/dL 06/02/2018 8:00 PM [facility] [employer] LABORATORY [facility]. [facility] ALKALINE PHOSPHATASE 66 35 - 104 U/L 06/02/2018 8:00 PM [facility] [employer] LABORATORY SERVICES [facility]. [facility] AST 22 <33 U/L 06/02/2018 8:00 PM [facility] LABORATORY SERVICES - . [facility] Comment: Hemolysis present. Result may be falsely elevated. ALT 19 <34 U/L 06/02/2018 8:00 PM [facility] [employer] [facility] GFR >60 >=60 mL/min/1.7 3 sq meter 06/02/2018 8:00 PM [facility] [employer] [facility] Comment: eGFR has not [...] mL/min/1.7 3 sq meter 06/02/2018 8:00 PM [facility] [employer] [facility] ANION GAP 15 8 - 16 mmol/L 06/02/2018 8:00 PM [facility] [employer] [facility] Blood Venipuncture / Unknown 06/02/2018 6:50 PM [employer] 06/02/2018 7:03 PM [facility] [employer] [facility] - 06/02/2018 8:00 PM [employer] Samples containing indocyanine green cause interferences on Total and/or Direct Bilirubin and must not be measured. Ceasar Kelley MD CHEMISTRY ORDERABLE S [facility] [employer] [facility]# [id number] [facility] [place] [id number] * (ABNORMAL) CBC WITH DIFFERENTIAL (06/02/2018 6:50 PM [employer]) WBC 12.4(H) 4.0 - 9.8 K/uL 06/02/2018 7:12 PM [facility] [employer] [facility] RBC 4.17 3.90 - 4.90 M/uL 06/02/2018 7:12 PM [facility] [employer] [facility] HEMOGLOBIN 12.9 11.8 - 14.8 g/dL 06/02/2018 7:12 PM [facility] - [facility] HEMATOCRIT 37.1 35.5 - 44.0 % 06/02/2018 7:12 PM [facility] [employer] LABORATORY SERVICES - . [facility] MCV 89.0 82.0 - 99.0 fL 06/02/2018 7:12 PM [employer] [facility] - [facility] MCH 30.9 27.2 - 32.6 pg 06/02/2018 7:12 PM [employer] [facility] - [facility] MCHC 34.8 31.5 - 35.5 g/dL 06/02/2018 7:12 PM [employer] [facility] - [facility] RDW 13.8 11.5 - 14.5 % 06/02/2018 7:12 PM [employer] [facility] - [facility] RDW-STDEV 45.3 37.1 - 48.7 fL 06/02/2018 7:12 PM [employer] LABORATORY SERVICES - . [facility] PLATELETS 326 140 - 350 K/uL 06/02/2018 7:12 PM [employer] [facility] - [facility] MPV 9.0(L) 9.3 - 12.4 fL 06/02/2018 7:12 PM [employer] LABORATORY SERVICES - . [facility] NEUTROPHILS 61 % 06/02/2018 7:12 PM [employer] LABORATORY SERVICES - . [facility] LYMPHOCYTES 32 % 06/02/2018 7:12 PM [employer] LABORATORY SERVICES - . [facility] MONOCYTES 5 % 06/02/2018 7:12 PM [employer] LABORATORY SERVICES - . [facility] EOSINOPHILS 1 % 06/02/2018 7:12 PM [employer] LABORATORY SERVICES - . [facility] BASOPHILS 1 % 06/02/2018 7:12 PM [employer] [facility]ATORY [facility] - [facility] IMMATURE GRANULOCYTES 1 % 06/02/2018 7:12 PM [employer] LABORATORY SERVICES - . [facility] Comment:IG (Immature Granulo cyte) count includes Metamyelocytes, Myelocytes, and Promyelocytes NEUTROPHIL ABSOLUTE 7.55(H) 1.90 - 7.00 K/uL 06/02/2018 7:12 PM [employer] LABORATORY SERVICES - . [facility] LYMPHOCYTE ABSOLUTE 4.00 0.70 - 4.50 K/uL 06/02/2018 7:12 PM [employer] LABORATORY [facility] - . [facility] MONOCYTE ABSOLUTE 0.58 0.10 - 1.30 K/uL 06/02/2018 7:12 PM [employer] [facility] LABORATORY SERVICES - [facility] EOSINOPHIL ABSOLUTE 0.13 0.00 - 0.70 K/uL 06/02/2018 7:12 PM [employer] [facility] LABORATORY SERVICES - [facility] BASOPHILS ABSOLUTE 0.06 0.00 - 0.20 K/uL 06/02/2018 7:12 PM [employer] [facility] LABORATORY SERVICES - [facility] IMMATURE GRANULOCYTES ABSOLUTE 0.10(H) 0.00 - 0.03 K/uL 06/02/2018 7:12 PM RUGBY LEAGUE FOOTBALLER [facility] - [facility] Blood Venipuncture / Unknown 06/02/2018 6:50 PM RUGBY LEAGUE FOOTBALLER 06/02/2018 7:03 PM RUGBY LEAGUE FOOTBALLER Ceasar Kelley MD HEMATOLOGY ORDERABL ES [facility] [id number] [facility] [place] [address] documented in this encounter Visit Diagnoses Diagnosis [...] admin instructions, Routine Given 06/04/2018 7:56 AM RUGBY LEAGUE FOOTBALLER 650 mg Given 06/04/2018 2:28 AM RUGBY LEAGUE FOOTBALLER 650 mg Given 06/03/2018 2:35 PM RUGBY LEAGUE FOOTBALLER 650 mg atorvastatin (LIPITOR) tablet 80 mg 80 mg, Oral, DAILY AT BEDTIME, First dose on Sat06/03/18 at 2100, Until Discontinued, Routine Given 06/04/2018 9:00 PM RUGBY LEAGUE FOOTBALLER 80 mg Given 06/03/2018 8:14 PM RUGBY LEAGUE FOOTBALLER 80 mg citalopram (CeleXA) tablet 40 mg 40 mg, Oral, DAILY AT BEDTIME, First dose on Sat06/03/18 at 2100, Until Discontinued, Routine Given 06/04/2018 8:59 PM RUGBY LEAGUE FOOTBALLER 40 mg Given 06/03/2018 8:14 PM RUGBY LEAGUE FOOTBALLER 40 mg dextrose 5% - lactated ringers infusion IV, at 100 mL/hr, CONTINUOUS, Starting on Sat06/02/18 at 2300, Until Sat06/05/18 at 2002, Routine Bag Switched 06/05/2018 12:52 AM RUGBY LEAGUE FOOTBALLER 100 mL/hr Rate Verify 06/04/2018 7:00 PM RUGBY LEAGUE FOOTBALLER 100 mL/hr Restarted 06/04/2018 6:26 PM RUGBY LEAGUE FOOTBALLER 100 mL/hr dextrose 5% - sodium chloride [...] Pain, Nausea, Routine Given 06/05/2018 1:20 PM RUGBY LEAGUE FOOTBALLER 10 mg Given 06/05/2018 1:32 AM RUGBY LEAGUE FOOTBALLER 10 mg Given 06/04/2018 6:23 PM RUGBY LEAGUE FOOTBALLER 10 mg diphenhydrAMINE (BENADRYL) tablet 25 mg 25 mg, Oral, ONE TIME ONLY, 1 dose, On Sat06/03/18 at 0800, Routine Given 06/03/2018 8:31 AM RUGBY LEAGUE FOOTBALLER 25 mg diphenhydrAMINE (BENADRYL) tablet 25 mg 25 mg, Oral, EVERY 8 HOURS PRN, Starting on Sat06/03/18 at 1417, Until Sat06/03/18 at 1952, Allergies, Itching, Routine Given 06/03/2018 2:34 PM RUGBY LEAGUE FOOTBALLER 25 mg diphenhydrAMINE (BENADRYL) tablet 25 mg 25 mg, Oral, EVERY 6 HOURS PRN, Starting on Sat06/03/18 at 2000, Until Sat06/05/18 at 2002, Allergies, Itching, Routine Given 06/05/2018 10:04 AM RUGBY LEAGUE FOOTBALLER 25 mg Given 06/05/2018 12:44 AM RUGBY LEAGUE FOOTBALLER 25 mg Given 06/04/2018 6:23 PM RUGBY LEAGUE FOOTBALLER 25 mg enoxaparin (LOVENOX) injection 40 mg 40 mg, subCUT, EVERY 24 HOURS, First dose on Sat06/03/18 at 2100, Until Discontinued, Routine Given 06/04/2018 9:00 PM RUGBY LEAGUE FOOTBALLER 40 mg Abdomen, Right Lower Quadrant Given 06/03/2018 8:16 PM RUGBY LEAGUE FOOTBALLER 40 mg Ab dominal Tissue fenofibrate (LOFIBRA) tablet 160 mg 160 mg, Oral, DAILY, First dose on Sat06/03/18 at 0900, Until Discontinued, Routine Given 06/05/2018 10:00 AM RUGBY LEAGUE FOOTBALLER 160 mg Given 06/04/2018 9:00 AM RUGBY LEAGUE FOOTBALLER 160 mg Given 06/03/2018 12:33 PM RUGBY LEAGUE FOOTBALLER 160 mg glucagon HCl 1 mg injection [...] at bedtime tomorrow. Given 06/05/2018 9:58 AM RUGBY LEAGUE FOOTBALLER 24 Units Arm, Right Upper insulin lispro [...] at 2002 Rate Change 06/05/2018 3:55 AM RUGBY LEAGUE FOOTBALLER 2.25 Units/hr 2.3 mL/hr Rate Change 06/05/2018 1:39 AM RUGBY LEAGUE FOOTBALLER 3 Units/hr 3 mL/hr Rate Change 06/04/2018 11:30 PM RUGBY LEAGUE FOOTBALLER 4 Units/hr 4 mL/hr lactated ringers infusion IV, at 150 mL/hr, CONTINUOUS, Starting on Sat06/02/18 at 2300, Until Sat06/05/18 at 2002, Routine levothyroxine (SYNTHROID) tablet 200 mcg 200 mcg, Oral, DAILY EARLY, First dose on Sat06/03/18 at 0600, Until Discontinued, Routine Given 06/05/2018 6:38 AM RUGBY LEAGUE FOOTBALLER 200 mcg Given 06/04/2018 5:08 AM RUGBY LEAGUE FOOTBALLER 200 mcg Given 06/03/2018 5:25 AM RUGBY LEAGUE FOOTBALLER 200 mcg LORazepam (ATIVAN) tablet 1 mg 1 mg, Oral, TWO TIMES DAILY PRN, Starting on Sat06/03/18 at 0001, Until Sat06/05/18 at 2002, Anxiety, Routine Given 06/04/2018 6:23 PM RUGBY LEAGUE FOOTBALLER 1 mg Given 06/04/2018 7:57 AM RUGBY LEAGUE FOOTBALLER 1 mg Given 06/03/2018 11:37 AM RUGBY LEAGUE FOOTBALLER 1 mg morphine 4 mg/mL injection 2 mg 2 mg, IV, EVERY 6 HOURS PRN, Starting on Sat06/03/18 at 0001, Until Sat06/03/18 at 0850, Pain (See admin instructions), Routine Given 06/03/2018 3:31 AM RUGBY LEAGUE FOOTBALLER 2 mg morphine 4 mg/mL injection 2 mg 2 mg, IV, EVERY 4 HOURS PRN, Starting on Sat06/03/18 at 0900, Until Sat06/04/18 at 0959, Pain (See admin instructions), Routine Given 06/04/2018 8:53 AM RUGBY LEAGUE FOOTBALLER 2 mg Given 06/03/2018 3:42 PM RUGBY LEAGUE FOOTBALLER 2 mg Given 06/03/2018 10:20 AM RUGBY LEAGUE FOOTBALLER 2 mg morphine 4 mg/mL injection 2 mg 2 mg, IV, EVERY 6 HOURS PRN, Starting on Sat06/04/18 at 1257, Until Sat06/05/18 at 2003, Pain (See admin instructions), Routine Given 06/05/2018 6:42 AM RUGBY LEAGUE FOOTBALLER 2 mg Given 06/05/2018 12:44 AM RUGBY LEAGUE FOOTBALLER 2 mg Given 06/04/2018 6:24 PM RUGBY LEAGUE FOOTBALLER 2 mg morphine injection 6 mg 6 mg, IV, ONE TIME ONLY, 1 dose, On Sat06/02/18 at 2000, Routine Given 06/02/2018 8:07 PM RUGBY LEAGUE FOOTBALLER 6 mg morphine injection 6 mg 6 mg, IV, ONE TIME ONLY, 1 dose, On Sat06/02/18 at 2115, Routine Given 06/02/2018 9:22 PM RUGBY LEAGUE FOOTBALLER 6 mg niacin (NIACOR) tablet 500 mg 500 mg, Oral, TWO TIMES DAILY, First dose on Sat06/03/18 at 0900, Until Discontinued, Routine Given 06/05/2018 10:00 AM RUGBY LEAGUE FOOTBALLER 500 mg Given 06/04/2018 9:00 PM RUGBY LEAGUE FOOTBALLER 500 mg Given 06/04/2018 11:20 AM RUGBY LEAGUE FOOTBALLER 500 mg ondansetron (ZOFRAN ODT) tablet 4 mg 4 mg, Oral, EVERY 6 HOURS PRN, Starting on Sat06/03/18 at 0001, Until Sat06/05/18 at 2002, Nausea/Emesis, Routine Given 06/04/2018 4:48 PM RUGBY LEAGUE FOOTBALLER 4 mg Given 06/03/2018 9:39 AM RUGBY LEAGUE FOOTBALLER 4 mg Given 06/03/2018 3:32 AM RUGBY LEAGUE FOOTBALLER 4 mg ondansetron (ZOFRAN) 4 mg/2 mL injection 4 mg 4 mg, IV, ONE TIME ONLY, 1 dose, On Sat06/02/18 at 1900, Routine Given 06/02/2018 6:52 PM RUGBY LEAGUE FOOTBALLER 4 mg ondansetron (ZOFRAN) 4 mg/2 mL injection 4 mg 4 mg, IV, ONE TIME ONLY, 1 dose, On Sat06/02/18 at 2000, Routine Given 06/02/2018 8:08 PM RUGBY LEAGUE FOOTBALLER 4 mg ONDANSETRON HCL (PF) 4 MG/2 ML INJECTION SOLUTION (CABINET OVERRIDE) 1 dose, Starting on Sat06/02/18 at 1852, Until Sat06/02/18 at 1852, Wilga CHIDILL: cabinet override oxyCODONE-acetaminophen (PERCOCET) 5-325 mg per tablet 1 Tablet 1 Tablet, Oral, EVERY 4 HOURS PRN, Starting on Sat06/03/18 at 0005, Until Sat06/05/18 at 2003, Pain, Routine Given 06/05/2018 10:01 AM RUGBY LEAGUE FOOTBALLER 1 Tablet Given 06/05/2018 3:55 AM RUGBY LEAGUE FOOTBALLER 1 Tablet Given 06/04/2018 11:11 PM RUGBY LEAGUE FOOTBALLER 1 Tablet pantoprazole (PROTONIX) tablet 40 mg 40 mg, Oral, TWO TIMES DAILY, First dose on Sat06/03/18 at 0115, Until Discontinued, Routine Given 06/05/2018 10:01 AM RUGBY LEAGUE FOOTBALLER 40 mg Given 06/04/2018 8:59 PM RUGBY LEAGUE FOOTBALLER 40 mg Given 06/04/2018 9:00 AM RUGBY LEAGUE FOOTBALLER 40 mg prochlorperazine maleate (COMPAZINE) tablet 5 mg 5 mg, Oral, EVERY 6 HOURS PRN, Starting on Sat06/03/18 at 0753, Until Katie 06/05/18 at 2003, Nausea/Emesis, Routine Given 06/04/2018 6:23 PM RUGBY LEAGUE FOOTBALLER 5 mg Given 06/04/2018 11:21 AM RUGBY LEAGUE FOOTBALLER 5 mg Given 06/03/2018 8:31 AM RUGBY LEAGUE FOOTBALLER 5 mg sodium chloride 0.9% bolus solution 1,000 mL 1,000 mL, IV, ONE TIME ONLY, 1 dose, On Sat06/02/18 at 2000, at 1,000 mL/hr, Administer over 60 Minutes, Routine New Bag 06/02/2018 8:05 PM RUGBY LEAGUE FOOTBALLER 1,000 mL 1000 mL/hr traZODone (DESYREL) tablet 100 mg 100 mg, Oral, DAILY AT BEDTIME, First dose on Sat06/03/18 at 2100, Until Discontinued, Routine Given 06/04/2018 9:00 PM RUGBY LEAGUE FOOTBALLER 100 mg Given 06/03/2018 8:14 PM RUGBY LEAGUE FOOTBALLER 100 mg documented in this encounter Active and Recently Administered Medications Times are shown in RUGBY LEAGUE FOOTBALLER. Scheduled Medication Order 06/03/2018 06/04/2018 06/05/2018 atorvastatin [...] Healy RN)1824 (Given - Provider: Loc Healy, CLAU) 0044 (Given - Provider: Yesy Anders, RN)0642 [...] - Provider: BLAISE Moreno)0830 (Given - Provider: Loc Healy RN)1122 (Given - Provider: Loc Healy [...] CLAU) documented in this encounter Care Teams Lumber Cutter Relationship Specialty Start Date End Date Guerrero Middleton PA-C PCP - General Physician Patient Relations Liaison 02/13/18 documented as of this encounter
--- OUTSIDE RECORDS SUMMARY | 2024-05-03 21:58 | XMS_ITS | Encounter Summary ---
Author Organization [facility] Address [address] [place] [address] Care Team Providers Care Mechanics Supervisor Name Role Phone Guerrero Middleton PA-C Primary Care Provide r Reason for Visit * Reason Onset Date Comments ER 05/16/2018 Encounter Details Date Type Department Care Team (Late Contact Info) Description 05/16/2018 Telephone [facility] Heart and Vascular [place] [address] [place] [address] Marlys Mayer MD [address] [facility] [address] [address] [place] [address] ER Social History Tobacco Use Types Packs/Day [...] Encounter - Alexandra Kahn RN - 05/16/2018 1:00 PM PROGRAM DIR Called patient, left message on home phone that Dr. Mayer wants the doctor to call her if patientgoes to the emergency room. She said to insist that the doctor in the ER called Dr. Mayer directly RAM DIR documented in this encounter Plan of Treatment Upcoming Encounters Date Type Department Care Team (Late st Contact Info) Description 09/14/2024 3:00 PM CDT Office Visit [facility] [address] [place] [address] Marlys Mayer MD [address] [place] [address] documented as of this encounter Visit Diagnoses Not on filedocumented in this encounter Care Teams Mechanics Supervisor Relationship Specialty Start Date End Date Guerrero Middleton PA-C PCP - General Physician Currency Machine Operator 02/13/18 documented as of this encounter
--- OUTSIDE RECORDS SUMMARY | 2024-05-03 21:58 | XMS_ITS | Encounter Summary ---
Author Organization [facility] Address [address] [place] [address] Care Team Providers Care Freight Rate Analyst Name Role Phone Guerrero Middleton PA-C Primary Care Provide r Reason for Visit * Reason Onset Date Comments Erroneous encounter-disregard 06/04/2018 Encounter Details Date Type Department Care Team ([facility] Contact Info) Description 06/04/2018 Telephone [facility] Heart and Vascular At [address] [place] [phone] Marlys Mayer MD [address] [place] [address] [address] [place], [place] [id number] Erroneous encounter-disregard Social History Tobacco Use Types [...] [facility] Heart and Vascular - [facility] [address] [address] [facility] [address] [place] [address] Marlys Mayer MD [address] [facility] [address] [place], [place] [id number] documented as of this encounter Visit Diagnoses Not on filedocumented in this encounter Care Teams Freight Rate Analyst Relationship Specialty Start Date End Date Guerrero Middleton PA-C PCP - General Physician Roller Billet Mill 02/13/18 documented as of this encounter
--- OUTSIDE RECORDS SUMMARY | 2024-05-03 21:58 | XMS_ITS | Encounter Summary ---
Author Organization [facility] Address [address] [place] [address] Care Team Providers Care Bonding Machine Operator Name Role Phone Guerrero Middleton PA-C Primary Care Provide r Encounter Details Date Type Department Care Team (Late Contact Info) Description 05/14/2018 Orders Only [facility] Heart and Vascular At [address] [place] [phone] Marlys Mayer MD [address] [place] [address] [address] [place], [place] [id number] Social History Tobacco Use Types Packs/Day Years [...] [facility] - [facility] [address] [address] [facility] [address] [place] [address] Marlys Mayer MD [address] [place] [address] [address] [place], [place] [id number] documented as of this encounter Procedures Procedure Name Priority Date/Time Associated Diagnosis Comments [facility] MISCELLANEOUS TEST Routine 05/12/2018 documented in this encounter Results * [facility] MISCELLANEOUS TEST (05/12/2018) Other, specify Marlys Mayer MD CHEMISTRY ORDERABLES [facility] CLIA #[id number] [address] [address] documented in this encounter Visit Diagnoses Not on filedocumented in this encounter Care Teams Bonding Machine Operator Relationship Specialty Start Date End Date Guerrero Middleton PA-C PCP - General Physician Fire Systems Inspector 02/13/18 documented as of this encounter
--- OUTSIDE RECORDS SUMMARY | 2024-05-03 21:58 | XMS_ITS | Encounter Summary ---
Author Organization [facility] Address [address] [place] [address] Care Team Providers Care Handbook Writer Name Role Phone Guerrero Middleton PA-C Primary Care Provide r Reason for Visit * Reason Onset Date Comments Discussion of patient 04/10/2018 Encounter Details Date Type Department Care Team (Late st Contact Info) Description 04/10/2018 Telephone [facility] Heart and Vascular At [facility] [address] [facility] [address] [place] [phone] Marlys Mayer MD [address] [facility] [address] [place] [address] Discussion of patient Social History [...] Alexandra Kahn RN - 04/10/2018 2:[address] Jacobs called back, transferred to Dr. Mayer UNITY MIDWIFE * Telephone Encounter - Alexandra Kahn RN - 04/10/2018 2:15 PM COMMUNITY MIDWIFE Returned Dr. Jacobs's call left direct call back number UNITY MIDWIFE * Telephone Encounter - Migue Natali Mccray - 04/10/2018 2:[address] Reynaldo hunt/Kasia called to speak to Dr. Mayer in regards to this patient. Please call Dr. Jacobs at [phone]. Thank you UNITY MIDWIFE documented in this encounter Plan of Treatment Upcoming Encounters Date Type Department Care Team (Late st Contact Info) Description 09/14/2024 3:00 PM CDT Office Visit [facility] [address] [place] [address] Marlys Mayer MD [address] [place] [address] documented as of this encounter Visit Diagnoses Not on filedocumented in this encounter Care Teams Handbook Writer Relationship Specialty Start Date End Date Guerrero Middleton PA-C PCP - General Physician Sales Hunter 02/13/18 documented as of this encounter
--- OUTSIDE RECORDS SUMMARY | 2024-05-03 21:58 | XMS_ITS | Encounter Summary ---
Author Organization [facility] Address [address] [place] [address] Care Team Providers Care Adult Specialist Name Role Phone Guerrero Middleton PA-C Primary Care Provide r Encounter Details Date Type Department Care Team (Late Contact Info) Description 04/22/2018 Orders Only [facility] Heart and Vascular At [place] [address] [facility] [facility] [address] [place] [address] Provider, Abstract NO ADDRESS ON [...] Upcoming Encounters Date Type Department Care Team ([facility] Contact Info) Description 09/14/2024 3:00 PM CDT Office Visit [facility] Heart and Vascular - [facility] [address] [address] [facility] [address] [place] [address] Marlys Mayer MD [address] [facility] [address] [facility] [address] [place] [address] documented as of this encounter Procedures Procedure Name Priority Date/Time Associated Diagnosis Comments [facility] MISCELLANEOUS TEST Routine 04/03/2018 documented in this encounter Results * [facility] MISCELLANEOUS TEST (04/03/2018) Other, specify Abstract Provider CHEMISTRY ORDERABLES [facility] CLIA #[id number] [address] [facility] [facility] [address] [address] documented in this encounter Visit Diagnoses Not on filedocumented in this encounter Care Teams Adult Specialist Relationship Specialty Start Date End Date Guerrero Middleton PA-C PCP - General Physician Fuel Operator 02/13/18 documented as of this encounter
--- OUTSIDE RECORDS SUMMARY | 2024-05-03 21:58 | XMS_ITS | Encounter Summary ---
Author Organization [facility] Address [address] [place] [address] Care Team Providers Care Web Marketing Intern Name Role Phone Guerrero Middleton PA-C Primary Care Provide r Reason for Visit * Reason Onset Date Comments Question 05/20/2018 Encounter Details Date Type Department Care Team (Late st Contact Info) Description 05/20/2018 Telephone [facility] Heart and Vascular At [address] [place] [address] Marlys Mayer MD [address] [place] [address] [address] [place] [address] Question Social History Tobacco Use [...] Alexandra Kahn RN - 05/20/2018 2:10 PM PRODUCTION PATTERN MAKER Returned residents call, transferred her to [phone], the office at [facility] to speak with Dr. Mayer UCTION PATTERN MAKER * Telephone Encounter - Thuy Campos - 05/20/2018 1:07 PM CST Judy (resident) called due to the patient being admitted into the hospital stating she wanted to speak with Dr. Mayer or the nurse in regards to the patient's triglycerides. Please contact Judy at [phone] thank you. UCTION PATTERN MAKER documented in this encounter Plan of Treatment Upcoming Encounters Date Type Department Care Team (Late st Contact Info) Description 09/14/2024 3:00 PM CDT Office Visit [facility] Heart and Vascular - [place] [address] [place] [address] Marlys Mayer MD [address] [place] [address] documented as of this encounter Visit Diagnoses Not on filedocumented in this encounter Care Teams Web Marketing Intern Relationship Specialty Start Date End Date Guerrero Middleton PA-C PCP - General Physician Ticket Collector 02/13/18 documented as of this encounter
--- OUTSIDE RECORDS SUMMARY | 2024-05-03 21:59 | XMS_ITS | Encounter Summary ---
Author Organization [facility] Address [address] [place] [address] Care Team Providers Care Production Mechanic Name Role Phone Guerrero Middleton PA-C Primary Care Provide r Reason for Visit * Reason Onset Date Comments Needs Appointment 03/06/2018 Encounter Details Date Type Department Care Team (Late st Contact Info) Description 03/06/2018 Telephone [facility] Heart and Vascular At [facility] [address] [facility] [address] [place] [address] Marlys Mayer MD [address] [facility] [address] [place] [address] Needs Appointment Social History Tobacco [...] Tita Jessica RMA - 03/06/2018 4:34 PM INVESTMENT EXECUTIVE Appointment scheduled. STMENT EXECUTIVE * Telephone Encounter - Thuy Campos - 03/06/2018 2:56 PM CST Patient was seen today with Dr. Mayer and would like to see her back in four weeks. I did not seeany available appointments for four weeks out.. Please contact the patient at [phone] to schedule this thank you. STMENT EXECUTIVE documented in this encounter Plan of Treatment Upcoming Encounters Date Type Department Care Team (Late st Contact Info) Description 09/14/2024 3:00 PM CDT Office Visit [facility] Heart and Vascular - [place] [address] [place] [phone] Marlys Mayer MD [address] [place] [address] documented as of this encounter Visit Diagnoses Not on filedocumented in this encounter Care Teams Production Mechanic Relationship Specialty Start Date End Date Guerrero Middleton PA-C PCP - General Physician Second Rigger 02/13/18 documented as of this encounter
--- OUTSIDE RECORDS SUMMARY | 2024-05-03 21:59 | XMS_ITS | Encounter Summary ---
Author Organization [facility] Address [address] [place] [address] Care Team Providers Care Sandwich Peddler Name Role Phone Guerrero Middleton PA-C Primary Care Provide r Reason for Visit * Reason Onset Date Comments Labs?? Admission?? 03/07/2018 Encounter Details Date Type Department Care Team (Late st Contact Info) Description 03/07/2018 Telephone [facility] Heart and Vascular At [facility] [address] [facility] [facility] [place] [address] Marlys Mayer MD [address] [place] [address] [address] [place] [address] Labs?? Admission?? Social History Tobacco [...] Alexandra Kahn RN - 03/07/2018 12:40 PM SIGNAL PROCESSING ENGINEER Called patient, she reports having sharp pain in her abdomen that is getting worse and it is going to her back. Patient is also very nauseated. Called Dr. Mayer who advised patient should go to [facility], relayed message to patient who agreed to go. AL PROCESSING ENGINEER * Telephone Encounter - Natali Camarena - 03/07/2018 12:05 PM CST Patient called to see if the lab results have been read by Dr. Mayer. Will she be admitted? Not feeling well - actually feels worse. Please call patient at [phone]. Jabber to nurse AL PROCESSING ENGINEER documented in this encounter Plan of Treatment Upcoming Encounters Date Type Department Care Team (Late st Contact Info) Description 09/14/2024 3:00 PM CDT Office Visit [facility] Heart and Vascular - [place] [address] [place] [address] Marlys Mayer MD [address] [place] [address] documented as of this encounter Visit Diagnoses Not on filedocumented in this encounter Care Teams Sandwich Peddler Relationship Specialty Start Date End Date Guerrero Middleton PA-C PCP - General Physician Applications Tester 02/13/18 documented as of this encounter
--- OUTSIDE RECORDS SUMMARY | 2024-05-03 21:59 | XMS_ITS | Encounter Summary ---
Author Organization [facility] Address [address] [place] [address] Care Team Providers Care Law Reporter Name Role Phone Guerrero Middleton PA-C Primary Care Provide r Reason for Visit * Reason Onset Date Comments Results 04/04/2018 triglycerides, b lood sugar Encounter Details Date Type Department Care Team (Late st Contact Info) Description 04/04/2018 Telephone [facility] Heart and Vascular At [address] [place] [address] Marlys Mayer MD [address] [place] [address] [address] [place] [address] Results (triglycerides, blood sugar) Social [...] Alexandra Kahn RN - 04/04/2018 3:20 PM ASSISTANT MANAGER/EMBALMER Called patient again, informed her her triglycerides are 3531, blood sugar 188 patient verbalized understanding. Per Dr. Mayer patient is to stay on a strict low-fat, low-carb diet, patient verbalized understanding. Patient asked about coming in for plasmapheresis. Explained that they will not doplasmapheresis if she is asymptomatic. If she does develop abdominal pain or vomiting this weekend to come to [facility] emergency room where they will do plasmapheresis, verb understanding STANT MANAGER/EMBALMER * Telephone Encounter - Alexandra Kahn RN - 04/04/2018 3:03 PM ASSISTANT MANAGER/EMBALMER Called patient to let her know Dr. Mayer has called Dr. Gates's office, the earliest appointment she could get was May 152018. Dr. Mayer is messaging Dr. Gates to see if she can get pt in sooner. In the meantime patient needs to stay hydrated, if she develops abdominal pain or vomiting should go to the emergency room, verbalized understanding STANT MANAGER/EMBALMER documented in this encounter Plan of Treatment Upcoming Encounters Date Type Department Care Team (Late st Contact Info) Description 09/14/2024 3:00 PM CDT Office Visit [facility] Heart and Vascular - [place] [address] [place] [phone] Marlys Mayer MD [address] [place] [address] documented as of this encounter Visit Diagnoses Not on filedocumented in this encounter Care Teams Law Reporter Relationship Specialty Start Date End Date Guerrero Middleton PA-C PCP - General Physician Bucket Hooker 02/13/18 documented as of this encounter
--- OUTSIDE RECORDS SUMMARY | 2024-05-03 21:59 | XMS_ITS | Encounter Summary ---
Author Organization [facility] Address [address] [place] [address] Care Team Providers Care Candle Cutter Name Role Phone Guerrero Middleton PA-C Primary Care Provide r Reason for Visit * Reason Onset Date Comments Referral Request 04/04/2018 Dr Blake reno Encounter Details Date Type Department Care Team (Late st Contact Info) Description 04/04/2018 Telephone [facility] Heart and Vascular At [address] [place] [address] Marlys Mayer MD [address] [place] [address] [address] [place] [address] Referral Request (Dr Blake Darnell) [...] Alexandra Kahn RN - 04/04/2018 10:59 AM BUSINESS OFFICE COORDINATOR Called Dr. Blake Herrera release office, left message on back line that we were giving a doctor to doctor referral for this patient. Left message that we would like the appointment before the end of the year, gave triglycerides and A1c level. Callback number left for any questions or if they were notgoing to call pt to schedule. NESS OFFICE COORDINATOR documented in this encounter Plan of Treatment Upcoming Encounters Date Type Department Care Team (Late st Contact Info) Description 09/14/2024 3:00 PM CDT Office Visit [facility] Heart and Vascular - [place] [address] [place] [phone] Marlys Mayer MD [address] [place] [address] documented as of this encounter Visit Diagnoses Not on filedocumented in this encounter Care Teams Candle Cutter Relationship Specialty Start Date End Date Guerrero Middleton PA-C PCP - General Physician Chief Administrative Officer 02/13/18 documented as of this encounter
--- OUTSIDE RECORDS SUMMARY | 2024-05-03 21:59 | XMS_ITS | Encounter Summary ---
Author Organization [facility] Address [address] [place] [address] Care Team Providers Care Can Reforming Machine Operator Name Role Phone Guerrero Middleton PA-C Primary Care Provide r Encounter Details Date Type Department Care Team (Latest Contact Info) Description 03/06/2018 2:58 PM RETAIL SALES ASSISTANT - 03/06/2018 11:59 PM RETAIL SALES ASSISTANT Hospital Encounter [facility] [address] [place] [phone] Marlys Mayer MD [address] [place] [address] Discharge Disposition: Home or Self Care Social [...] mg by mouth 2 times daily. 04/10/2018 cfsbmnx-worvht-xlosimhr DR TING) 60-12-38 capsule Take by mouth [...] by mouth 2 times daily . 09/26/2023 [id number]-XOY-VOL-MIRI OIL ORAL Take by mouth 4 times daily. 04/10/2018 insulin aspart protamine-aspart (NovoLOG MIX 70-30) 100 unit/mL (70-30) pen syringe Inject by subcutaneous injection 8 units breakfast 14 units lunch 18 units dinner Also with sliding scale. 06/02/2018 levothyroxine 200 mcg tablet Take 1 Tablet by mouth daily train station server. 30 Tablet 3 12/11/2017 04/10/2018 Tqkob1-OreZ9-T62-E-FA-F bossman Oil [phone] us-tc-lst-mcg Capsule Take 2 Caplets by mouth 2 [...] daily as needed for Anxiety . 06/18/2020 xaplwcw-rkjkso-nxupgvsa DR (CREON 12) 41-12-28 capsule Take by mouth 3 times daily after meals. 04/10/2018 fenofibrate nanocrystallized (TRICOR) 145 mg tablet Take 145 mg by mouth daily. 04/10/2018 citalopram (CeleXA) 40 mg tablet Take 40 mg by mouth daily at bedtime. 11/01/2020 levothyroxine (SYNTHROID) 137 mcg Oral tabletIndications:Unspe cified hypothyroidism Take 1 Tab by mouth daily train station server. TAKE WITHOUT FOOD 30 Tab 0 03/20/2013 [...] [facility] - [facility] [address] [place] [address] Marlys Mayer MD [address] [place] [address] documented as of this encounter Procedures Procedure Name Priority Date/Time Associated Diagnosis Comments TSH Routine 03/06/2018 3:01 PM RETAIL SALES ASSISTANT Metabolic syndrome Hypertriglyceridem ia LIPASE Routine 03/06/2018 3:01 PM RETAIL SALES ASSISTANT Metabolic syndrome Hypertriglyceridem ia CK Routine 03/06/2018 3:01 PM RETAIL SALES ASSISTANT Metabolic syndrome Hypertriglyceridem ia AMYLASE Routine 03/06/2018 3:01 PM RETAIL SALES ASSISTANT Metabolic syndrome Hypertriglyceridem ia LIPID PANEL Routine 03/06/2018 3:01 PM RETAIL SALES ASSISTANT Metabolic syndrome Hypertriglyceridem ia COMPREHENSIVE METABOLIC PANEL Routine 03/06/2018 3:01 PM RETAIL SALES ASSISTANT Metabolic syndrome Hypertriglyceridem ia documented in this encounter Results * CK (03/06/2018 3:01 PM RETAIL SALES ASSISTANT) Pathologist [facility] CK 88 20 - 180 U/L 03/06/2018 6:33 PM RETAIL SALES ASSISTANT [facility] Blood Venipuncture / Unknown 03/06/2018 3:01 PM RETAIL SALES ASSISTANT 03/06/2018 3:12 PM RETAIL SALES ASSISTANT Marlys Mayer MD CHEMISTRY ORDERABLES [facility]# [id number] [address] [facility] [place] [place] [address] * (ABNORMAL) LIPID PANEL (03/06/2018 3:01 PM RETAIL SALES ASSISTANT) CHOLESTEROL 703(H) <200 mg/dL 03/06/2018 6:40 PM RETAIL SALES ASSISTANT [facility] TRIGLYCERIDE 612(H) <150 mg/dL 03/06/2018 6:40 PM [facility] HDL 14(L) 40 - 59 mg/dL 03/06/2018 6:40 PM RETAIL SALES ASSISTANT [facility] LDL CALCULATED <100 mg/dL 03/06/2018 6:40 PM RETAIL SALES ASSISTANT [facility] Comment:Calculated LDL is no t accurate when the Triglyceride value exceeds 400. NON-HDL CHOLESTEROL 689(H) <130 mg/dL 03/06/2018 6:40 PM RETAIL SALES ASSISTANT [facility] Blood Venipuncture / Unknown 03/06/2018 3:01 PM RETAIL SALES ASSISTANT 03/06/2018 3:12 PM RETAIL SALES ASSISTANT Narrative [facility] - 03/06/2018 6:40 PM RETAIL SALES ASSISTANT TOTAL CHOLESTEROL ??mg/dL ??Desirable <200 ??Borderline [...] Mayer MD CHEMISTRY ORDERABLES Performing Organization Address City/[facility]/ZIP Co de Phone Number [facility] CLOH# [id number] [address] [place] [address] * (ABNORMAL) TSH (03/06/2018 3:01 PM RETAIL SALES ASSISTANT) TSH 14.07(H) 0.27 - 4.20 uIU/mL 03/06/2018 7:15 PM RETAIL SALES ASSISTANT [facility] Blood Venipuncture / Unknown 03/06/2018 3:01 PM RETAIL SALES ASSISTANT 03/06/2018 3:12 PM RETAIL SALES ASSISTANT Marlys Mayer MD CHEMISTRY ORDERABLES Performing Organization Address [facility]/State/ZIP Co de Phone Number [facility]# [id number] [address] [place] [address] * LIPASE (03/06/2018 3:01 PM RETAIL SALES ASSISTANT) LIPASE 31 13 - 60 U/L 03/06/2018 6:33 PM RETAIL SALES ASSISTANT [facility] Blood Venipuncture / Unknown 03/06/2018 3:01 PM RETAIL SALES ASSISTANT 03/06/2018 3:12 PM RETAIL SALES ASSISTANT Marlys Mayer MD CHEMISTRY ORDERABLES Performing Organization Address [facility]/ZIP Co de Phone Number [facility] [id number] [address] INCLUDE [address] BEDS AT THE [facility] [address] * AMYLASE (03/06/2018 3:01 PM RETAIL SALES ASSISTANT) AMYLASE 68 28 - 100 U/L 03/06/2018 6:33 PM RETAIL SALES ASSISTANT [facility] Blood Venipuncture / Unknown 03/06/2018 3:01 PM RETAIL SALES ASSISTANT 03/06/2018 3:12 PM RETAIL SALES ASSISTANT Marlys Mayer MD CHEMISTRY ORDERABLES Performing Organization Address [facility] Co de Phone Number [facility]# [id number] [address] [place] [address] * (ABNORMAL) COMPREHENSIVE METABOLIC PANEL (03/06/2018 3:01 PM RETAIL SALES ASSISTANT) Pathologist [facility] SODIUM 131(L) 136 - 145 mmol/L 03/06/2018 7:57 PM [facility] POTASSIUM 4.5 3.5 - 5.0 mmol/L 03/06/2018 7:57 PM [facility] Comment: Slightly hemolyzed. Result may be falsely elevated. CHLORIDE 92(L) 98 - 107 mmol/L 03/06/2018 7:57 PM [facility] CO2 24 22 - 29 mmol/L 03/06/2018 7:57 PM [facility] CALCIUM 9.4 8.6 - 10.2 mg/dL 03/06/2018 7:57 PM RETAIL SALES ASSISTANT [employer] [facility] BUN 10 6 - 20 mg/dL 03/06/2018 7:57 PM [facility] CREATININE 0.47(L) 0.51 - 0.95 mg/dL 03/06/2018 7:57 PM [facility] GLUCOSE 148(H) 74 - 99 mg/dL 03/06/2018 7:57 PM [facility] - . [facility] TOTAL PROTEIN 7.5 6.7 - 8.6 g/dL 03/06/2018 7:57 PM [facility] - . [facility] ALBUMIN 4.5 3.5 - 5.2 g/dL 03/06/2018 7:57 PM [facility] BILIRUBIN TOTAL <0.2(L) 0.3 - 1.2 mg/dL 03/06/2018 7:57 PM [facility] ALKALINE PHOSPHATASE 61 35 - 104 U/L 03/06/2018 7:57 PM [facility] AST 19 <33 U/L 03/06/2018 7:57 PM [facility] Comment: Cleared of chylomicrons. Hemolysis present. Result may be falsely elevated. ALT 14 <34 U/L 03/06/2018 7:57 PM [facility] Comment:Cleared of chylomicr ons. GFR >60 >=60 mL/min/1.7 3 sq meter 03/06/2018 7:57 PM [facility] Comment: eGFR has not [...] mL/min/1.7 3 sq meter 03/06/2018 7:57 PM [facility] ANION GAP 15 8 - 16 mmol/L 03/06/2018 7:57 PM RETAIL SALES ASSISTANT [facility] Blood Venipuncture / Unknown 03/06/2018 3:01 PM RETAIL SALES ASSISTANT 03/06/2018 3:12 PM RETAIL SALES ASSISTANT Narrative [facility] - 03/06/2018 7:57 PM RETAIL SALES ASSISTANT Samples containing indocyanine green cause interferences on Total and/or Direct Bilirubin and must not be measured. Marlys Mayer MD CHEMISTRY ORDERABLES [facility]# [id number] [address] [place] [address] documented in this encounter Visit Diagnoses Diagnosis Metabolic syndrome Dysmetabolic Syndrome X Hypertriglyceridemia Pure hyperglyceridemia documented in this encounter Care Teams Can Reforming Machine Operator Relationship Specialty Start Date End Date Guererro Middleton PA-C PCP - General Physician Director Consumer Affairs 02/13/18 documented as of this encounter
--- OUTSIDE RECORDS SUMMARY | 2024-05-03 21:59 | XMS_ITS | Encounter Summary ---
Author Organization Address [address] [place] [address] Care Team Providers Care Embroidery Worker Name Role Phone Guerrero Middleton PA-C Primary Care Provide r Reason for Visit * Reason Onset Date Comments needs appt 04/02/2018 Encounter Details Date Type Department Care Team (Late st Contact Info) Description 04/02/2018 Telephone [facility] Heart and V[facility] At [facility] [address] [place] [phone] Marlys Mayer MD [address] [place] [address] needs appt Social History Tobacco [...] Tita Jessica RMA - 04/03/2018 4:41 PM ENVIRONMENTAL HEALTH TECHNICIAN Appointment scheduled. RONMENTAL HEALTH TECHNICIAN * Telephone Encounter - Luisa Post - 04/02/2018 2:54 PM CST Please contact patient to schedule a 1 month follow up with [address] Mayer. Thank you. RONMENTAL HEALTH TECHNICIAN documented in this encounter Plan of Treatment Upcoming Encounters Date Type Department Care Team (Late st Contact Info) Description 09/14/2024 3:00 PM CDT Office Visit [facility] Heart and Vascular - [place] [address] [place] [phone] Marlys Mayer MD [address] [place] [address] documented as of this encounter Visit Diagnoses Not on filedocumented in this encounter Care Teams Embroidery Worker Relationship Specialty Start Date End Date Guerrero Middleton PA-C PCP - General Physician Counter Clerk [employer] 02/13/18 documented as of this encounter
--- OUTSIDE RECORDS SUMMARY | 2024-05-03 21:59 | XMS_ITS | Encounter Summary ---
Author Organization [facility] Address [address] [place] [address] Care Team Providers Care Card Decorator Name Role Phone Guerrero Middleton PA-C Primary [...] [facility] Emergency Dept [address] [place] [address] Referral ID Status Reason Start Date Expiration Date Visits Re quested Visits Authorized [id number] 1 1 Encounter Details Date Type Department Care Team (Latest Contact Info) Description 03/08/2018 10:20 AM JUNIOR PROJECT MANAGER - 03/08/2018 11:00 AM JUNIOR PROJECT MANAGER Surgery [facility] GI [facility] [address] [employer] [address] [place] [address] Ceasar Vega MD [address] [place] [address] ESOPHAGOGASTRODUODENOSCOPY Surgery Details Date/Time Status Location OR Service Patient Class Case Class Case Type Trauma Case? 03/08/2018 10:20 AM Posted [facility] GI LAB GI 03 Gastroenterology [...] Comments Blood Pressure 109/56 03/08/2018 10:50 AM JUNIOR PROJECT MANAGER Pulse 67 03/08/2018 10:50 AM JUNIOR PROJECT MANAGER Temperature 36.3 ??C (97.3 ??F) 03/08/2018 10:[address] Respiratory Rate 18 03/08/2018 10:50 AM JUNIOR PROJECT MANAGER Oxygen Saturation 93% 03/08/2018 10:50 AM JUNIOR PROJECT MANAGER Inhaled Oxygen Concentration - - Weight 86.2 kg (190 lb) 03/07/2018 10:09 PM JUNIOR PROJECT MANAGER Height 162.6 cm (5' 4 ) 03/07/2018 10:09 PM JUNIOR PROJECT MANAGER Body Mass Index 32.61 03/07/2018 10:09 PM JUNIOR PROJECT MANAGER documented in this encounter Discharge Summaries * Alize Morel DO - 03/09/2018 12:54 PM CST Images from the original note were not included. [facility] Adult Hospitalist Discharge Summary Linda Doss 42 y.o. female 1975 CSN: [id number] Date of Admission: 03/07/2018 Date of Discharge: [...] told me that she has seen a room cleaner at some point and was told that [...] as needed for nausea/vomiting. Signed by: Alize Moerl, DO Quantity: 30 Tablet Refills: 0 CHANGE [...] 3 times daily. Refills: 0 Generic drug: msstoab-mearil-zmwtskpm DR fenofibrate 160 mg Tablet Commonly known [...] by mouth 2 times daily. Refills: 0 [id number]-LAD-DHP-YTZN OIL ORAL Take by mouth 4 times [...] Your Medications These medications were sent to [place] [address], [place] [id number] Hours: Saturday-Saturday: 8 a.m. - 8 p.m., [...] MORE THAN [address] Moreno Gates OR PROJECT MANAGER documented in this encounter Discharge Instructions * Discharge Instructions* Alize Morel DO - 03/09/2018 12:59 PM JUNIOR PROJECT MANAGER Your discharging physician is Alize Morel DO and may be reached at [phone] for any questions or concerns until you [...] is not relieved by nitroglycerin. Smoking Exposure: [facility] encourages all patients to decrease risks associated with smoking and second hand smoke exposure. If you smoke you are advised to quit. Ask your health care provider for advice if you need assistance to stop smoking. Avoid second-hand smoke exposure and do not let people smoke in your home. Please call [phone], our pulmonary rehabilitation department, to learn more about options to reduce your risks. ACTIVITY Your activity level is: no restrictions, increase activity as tolerated and no smoking. You may return to work/school na. DIET Your diet is: Very Low fat, diabetic WOUND CARE For your wound/incision: na. OR PROJECT MANAGER documented in this encounter Medications at Time [...] mg by mouth 2 times daily. 04/10/2018 yxhglut-zmycxk-lrqdrabx DR (CREON) 60-12-38 capsule Take by mouth [...] by mouth 2 times daily . 09/26/2023 LTODF9L-SLC-XCC-PTOS OIL ORAL Take by mouth 4 times daily. 04/10/2018 insulin aspart protamine-aspart (NovoLOG MIX 70-30) 100 unit/mL (70-30) pen syringe Inject by subcutaneous injection 8 units breakfast 14 units lunch 18 units dinner Also with sliding scale. 06/02/2018 levothyroxine 200 mcg tablet Take 1 Tablet by mouth daily stemhole borer. 30 Tablet 3 12/11/2017 04/10/2018 Vxktb6-AioI2-Z42-E-FA-F bossman Oil [phone] on-ad-sgi-mcg Capsule Take 2 Caplets by mouth 2 [...] daily as needed for Anxiety . 06/18/2020 vqrvyhm-nkskrj-gqygeydv DR (CREON 12) 60-12-38 capsule Take by [...] Rockwell NP - 03/09/2018 5:41 AM CST [facility] Call Called for: RN [...] system for vHospitalist calls. Submit an eTicket OR PROJECT MANAGER * Alize Morel, DO - 03/08/2018 1:15 PM CST [facility] Adult Hospitalist Progress Note Admit Date: 03/07/2018 [...] discussion of lab and test results. Pager: [phone] Alize Morel DO OR PROJECT MANAGER documented in this encounter H&P Notes * Pernell Tapia MD - 03/07/2018 11:12 PM CST [facility] Adult Hospitalist Admission H & P Patient [...] told me that she has seen a room cleaner at some point and was told that [...] 1 mg by mouth 2 times daily. ULBWN8A-ITS-CFF-ELZF OIL ORAL Yes No Sig: Take by mouth 4 times daily. ymattod-egmyxn-sdxbjbci DR (CREON) 60-12-38 capsule Yes No Sig: [...] Sig: Take 1 Tab by mouth daily stemhole borer. TAKE WITHOUT FOOD metFORMIN (GLUCOPHAGE) 500 mg [...] 99 mg/dL COMMENT, GLU POC Notified RN/MD UI SOFTWARE ENGINEER NAME ZURI MCCALL URINALYSIS WITH REFLEX [...] questions to their satisfaction. Pernell Tapia MD OR PROJECT MANAGER documented in this encounter Procedure Notes * Ceasar Vega MD - 03/08/2018 12:03 PM CSTAssociated Order(s): UPPER ENDOSCOPY REPORT [facility] Endoscopy Patient Name: Linda Doss Procedure [...] Number of Addenda: 0 [phone] [facility]; [place] [address] OR PROJECT MANAGER documented in this encounter Consult Notes * Ceasar Vega MD - 03/08/2018 9:36 AM CSTAssociated Order(s): IP CONSULT TO GI Inpatient Consultation Note [facility] Consultation Note Patient: Linda Doss / 42 y.o. / female : 1975 Date: 03/08/2018 CSN: [id number] Referring Physician:No ref. provider found PCP: No [...] the hyperlipoidemia. She was cared for in [facility] subsequently at [facility]. She had stuttering symptoms throughout the summer. [...] have no access to care everywhere at [facility]. Current exacerbation started several days ago. [...] mg by mouth 2 times daily. ??? nnsnpeo-cnsgfp-ohcoqwxa DR MAGUIRE) 60-12-38 capsule Take by mouth [...] by mouth 2 times daily . ??? JEEFS0O-XXG-AYC-OTNF OIL ORAL Take by mouth 4 times daily. ??? traZODone (DESYREL) 100 mg tablet Take 100 mg by mouth. ??? insulin aspart protamine-aspart (NovoLOG MIX 70-30) 100 unit/mL (70-30) pen syringe Inject by subcutaneous injection 12 units breakfast 14 units lunch 20 units dinner Also with sliding scale. ??? levothyroxine (SYNTHROID) 137 mcg Oral tablet Take 1 Tab by mouth daily stemhole borer. TAKE WITHOUT FOOD (Patient taking differently: Take 175 mcg by mouth daily stemhole borer TAKE WITHOUT FOOD. ) 30 Tab 0 [...] of Iterative 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 DICTATION LOCATION: Location [address] [place] [address] Impression/Plan: 1) Hypertriglyceridemia history of associated pancreatitis. [...] gastric emptying has been raised previously at [facility] per patient report. CT from last night does not show any gastric distention. We will attempt to obtain old records. Thank you very much for this consultation. Ceasar Vega MD [facility] Office: [phone] Pager: [phone] CC: No ref. provider found , No primary care provider on file. OR PROJECT MANAGER documented in this encounter OR Notes * Rebecca-OP - Awilda Pagan RN - 03/08/2018 10:45 AM CST Routine Pre-Anesthesia Protocol for GI Lab Procedures ?? [facility] ? ORDERS ARE ENTERED ???PER PROTOCOL? Enter the protocol in the patient???s electronic health record using [employer]: .anestprotocolgilab ?? NURSING ORDERS: Monitoring: ?? Obtain [...] appropriate, may confirm POC with: Nursing Only [id number] (this lab can be obtained at no [...] MEDICATION ORDERS - entered by the Pharmacist background investigator ? Meter Glucose less than 70, patient [...] Committee, Nursing Leadership, Pharmacy &??Therapeutics Committee ?Date:05/2017 OR PROJECT MANAGER documented in this encounter ED Notes * Jeff Enciso RN - 03/07/2018 6:30 PM CST Pt requesting more pain medication, will check w/ MD Lind. Otherwise, she continues to rest in stretcher while awaiting CT results. Will continue to monitor. OR PROJECT MANAGER * Jeff Enciso RN - 03/07/2018 6:00 PM CST Pt continues to rest in stretcher while awaiting CT scan. Reports significant relief in both nauseaand pain. Denies complaints and NAD noted. Visitor at bedside, call button within reach. Will continue to monitor. OR PROJECT MANAGER * Jeff Enciso RN - 03/07/2018 5:25 PM CST Pt medicated per JUN. Patient/family has been informed about benefits and any potential clinically significant side effects or other concerns regarding the administration of the drug they have just been given. NS infusing wide open. Awaiting CT scan. Will continue to monitor. OR PROJECT MANAGER * Jeff Enciso RN - 03/07/2018 4:57 [...] plan of care. Will continue to monitor. OR PROJECT MANAGER * Ambika Llanes RN - 03/07/2018 2:10 PM CST Emergency Department Adult Female Abdominal Pain Protocol [facility] ORDERS ARE ENTERED ???PER PROTOCOL?? Nursing Orders: o Insert peripheral IV (excessive vomiting or diarrhea) Laboratory Orders: o CBC with diff ([id number]) o CMP (LAB17) o If female of childbearing age: POC Urine HCG (POC7) or HCG Qualitative urine (EGV177) if sending to lab o Urinalysis with Reflex Microscopy (HVB575) o Serum HCG (if knowingly ) (PAN288) o Obtain serum lipase (LAB99) if upper abdominal pain o Draw and send extra tubes to lab (ED hold) ([id number]) Diagnostic Test Orders: o If RUQ pain, [...] by: Margarita Obando RN, BSN, YEFRI Nurse Fortune Cookie Maker Approved by: Medical Executive Committee, Nursing Leadershp, Pharmacy & Therapeutics Date:03/2017 OR PROJECT MANAGER * Puja Garcia RN - 03/07/2018 1:43 PM CST We promote safety at our facility and do not allow any type of weapon in the building. Do you have a weapon or something that could be used as a weapon on you today? denied possession of any weapons or firearms at this time. OR PROJECT MANAGER * Pernell Lind MD - 03/07/2018 1:36 [...] No blood in stool. PCP: Dr. Jaime [facility] Cardiology: Dr. Mayer History provided by: The [...] 1 mg by mouth 2 times daily. vxonohx-hrhycp-ikaqfnhi DR (AMELIA) 60-12-38 capsule Take by mouth [...] mg by mouth 2 times daily . [id number]-PAT-BYQR OIL ORAL Take by mouth 4 times daily. traZODone (DESYREL) 100 mg tablet Take 100 mg by mouth. insulin aspart protamine-aspart (NovoLOG MIX 70-30) 100 unit/mL (70-30) pen syringe Inject by subcutaneous injection 12 units breakfast 14 units lunch 20 units dinner Also with sliding scale. levothyroxine (SYNTHROID) 137 mcg Oral tablet Take 1 Tab by mouth daily stemhole borer. TAKE WITHOUTFOOD Qty: 30 Tab, Refills: 0 [...] 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 DICTATION LOCATION: Location 1 - [facility] PROCEDURES Procedures MEDICAL DECISION MAKING AND PLAN [...] 1 mg by mouth 2 times daily. mvekgew-ggtpah-bwrwidhf DR (CREON) 60-12-38 capsule Take by mouth [...] mg by mouth 2 times daily . QFWBV4F-GCZ-HOZ-OPCC OIL ORAL Take by mouth 4 times daily. traZODone (DESYREL) 100 mg tablet Take 100 mg by mouth. insulin aspart protamine-aspart (NovoLOG MIX 70-30) 100 unit/mL (70-30) pen syringe Inject by subcutaneous injection 12 units breakfast 14 units lunch 20 units dinner Also with sliding scale. levothyroxine (SYNTHROID) 137 mcg Oral tablet Take 1 Tab by mouth daily stemhole borer. TAKE WITHOUTFOOD Qty: 30 Tab, Refills: 0 [...] medical decision making performed by me. OR PROJECT MANAGER documented in this encounter Miscellaneous Notes * [...] to wait for dietary education. Ambulated off [facility] with family. OR PROJECT MANAGER * Care Plan - Alize Darling, CLAU [...] Tolerating NS @ 75.Biopsy results still pending. OR PROJECT MANAGER * Care Plan - Harvey Rendon RN [...] when asked for comfort then patientc/o pain. OR PROJECT MANAGER * Care Plan - Alize Darling RN - 03/08/2018 7:51 AM CST Pt remains AOx4, sleeping between care. Using morphine to manage pain, and zofran and compazine to manage nausea.Pt up independently to BR, voiding in hat. VSS. OR PROJECT MANAGER * Care Plan - Alize Darling RN - 03/08/2018 1:01 AM CST Pt admitted to room 6367, oriented to bathroom, call light, phone, and television. Pt complaints ofpain and nausea, given morphine and compazine when available. Undress and assess, no skin breakdownnoted; one small scar on back R shoulder. Pt settled, all questions answered. Undress and Assess performed by: CLAU Herrmannfigurine maker or upon transfer to:[facility] ~~~~~~~~~~~~~~~~~~~~~~~~~~~~ Is the patient a paraplegic/quadriplegic? Does [...] removed from patient Yes Disposition of belongings/valuables: OR PROJECT MANAGER documented in this encounter Plan of Treatment Upcoming Encounters Date Type Department Care Team (Late st Contact Info) Description 09/14/2024 3:00 PM CDT Office Visit [facility] [phone] [place] [address] Marlys Mayer MD [address] [place] [address] documented as of this encounter Procedures Procedure Name Priority Date/Time Associated Diagnosis Comments POC GLUCOSE Routine 03/09/2018 1:50 PM JUNIOR PROJECT MANAGER POC GLUCOSE Routine 03/09/2018 10:18 AM JUNIOR PROJECT MANAGER CBC WITH DIFFERENTIAL Routine 03/09/2018 5:39 AM JUNIOR PROJECT MANAGER TRIGLYCERIDE Routine 03/09/2018 5:39 AM JUNIOR PROJECT MANAGER LIPASE Routine 03/09/2018 5:39 AM JUNIOR PROJECT MANAGER COMPREHENSIVE METABOLIC PANEL Routine 5:39 AM JUNIOR PROJECT MANAGER POC GLUCOSE Routine 03/09/2018 5:27 AM JUNIOR PROJECT MANAGER POC GLUCOSE Routine 03/09/2018 12:33 AM JUNIOR PROJECT MANAGER POC GLUCOSE Routine 03/08/2018 9:17 PM JUNIOR PROJECT MANAGER POC GLUCOSE Routine 03/08/2018 6:22 PM JUNIOR PROJECT MANAGER POC GLUCOSE Routine 03/08/2018 2:26 PM JUNIOR PROJECT MANAGER TRIGLYCERIDE Stat 03/08/2018 1:02 PM JUNIOR PROJECT MANAGER UPPER ENDOSCOPY REPORT 8 12:04 PM JUNIOR PROJECT MANAGER PATHOLOGY Pathology 03/08/2018 11:55 AM JUNIOR PROJECT MANAGER ESOPHAGOGASTRODUODENOSCOPY 03/08 11:37 AM JUNIOR PROJECT MANAGER POC GLUCOSE Routine 03/08/2018 10:54 AM JUNIOR PROJECT MANAGER POC GLUCOSE Routine 03/08/2018 10:13 AM JUNIOR PROJECT MANAGER POC GLUCOSE Routine 03/08/2018 8:01 AM JUNIOR PROJECT MANAGER CBC WITH DIFFERENTIAL Routine 03/08/2018 5:15 AM JUNIOR PROJECT MANAGER LIPASE Routine 03/08/2018 5:15 AM JUNIOR PROJECT MANAGER HEMOGLOBIN A1C Routine 03/08/2018 5:15 AM JUNIOR PROJECT MANAGER LIPID PANEL Routine 03/08/2018 5:15 AM JUNIOR PROJECT MANAGER BASIC METABOLIC PANEL Routine 03/08/2018 5:15 AM JUNIOR PROJECT MANAGER POC GLUCOSE Routine 03/08/2018 3:23 AM JUNIOR PROJECT MANAGER URINALYSIS W/REFLEX MICROSCOPIC Stat 03/07/2018 11:04 PM JUNIOR PROJECT MANAGER POC GLUCOSE Routine 03/07/2018 10:[address] ABDOMEN PELVIS W CONTRAST Stat 12/2017 6:24 PM JUNIOR PROJECT MANAGER CBC WITH DIFFERENTIAL Stat 03/07/2018 2:15 PM JUNIOR PROJECT MANAGER LIPASE Stat 03/07/2018 2:15 PM JUNIOR PROJECT MANAGER COMPREHENSIVE METABOLIC PANEL Stat 2:15 PM JUNIOR PROJECT MANAGER documented in this encounter Results * (ABNORMAL) POC GLUCOSE (03/09/2018 1:50 PM JUNIOR PROJECT MANAGER) GLUCOSE POC 123(H) 74 - 99 mg/dL 03/09/2018 2:07 PM JUNIOR PROJECT MANAGER [facility]OR[facility] SERVICES [facility] COMMENT, GLU POC Notified RN/MD 03/09/2018 2:07 PM JUNIOR PROJECT MANAGER [facility]OR[facility] SERVICES [facility] UI SOFTWARE ENGINEER NAME POC STEPHON MIRELES 03/09/2018 2:07 PM JUNIOR PROJECT MANAGER [facility] SERVICES [facility] Whole blood specimen (specimen) 03/09/2018 1:50 PM JUNIOR PROJECT MANAGER 03/09/2018 2:07 PM JUNIOR PROJECT MANAGER Alize Morel DO POINT OF CARE TESTIN G [facility] [employer] [facility]# [id number] [address] [facility] [facility] [place] [address] * POC GLUCOSE (03/09/2018 10:18 AM JUNIOR PROJECT MANAGER) GLUCOSE POC 85 74 - 99 mg/dL 03/09/2018 10:42 AM JUNIOR PROJECT MANAGER [facility]ORAT[facility] SERVICES [facility] UI SOFTWARE ENGINEER NAME POC SANDEEP POPE 03/09/2018 10:42 AM JUNIOR PROJECT MANAGER [facility] SERVICES [facility] Whole blood specimen (specimen) 03/09/2018 10:18 AM JUNIOR PROJECT MANAGER 03/09/2018 10:42 AM JUNIOR PROJECT MANAGER Alize Morel DO POINT OF CARE TESTIN G [facility] CLIA# [id number] [address] [place] [address] * LIPASE (03/09/2018 5:39 AM JUNIOR PROJECT MANAGER) LIPASE 16 13 - 60 U/L 03/09/2018 7:10 AM [facility] [employer] LABORATORY SERVICES [facility] Blood 03/09/2018 5:39 AM JUNIOR PROJECT MANAGER 03/09/2018 6:24 AM JUNIOR PROJECT MANAGER Alize Morel DO CHEMISTRY ORDERABLES Performing Organization Address [facility]/ZIP Co de Phone Number [facility] LABORATORY [facility] CLIA# [id number] [address] [place] [address] * CBC WITH DIFFERENTIAL (03/09/2018 5:39 AM JUNIOR PROJECT MANAGER) WBC 5.3 4.0 - 9.8 K/uL 03/09/2018 6:44 AM JUNIOR PROJECT MANAGER [facility] LABORATORY SERVICES - [facility] RBC 4.06 3.90 - 4.90 M/uL 03/09/2018 6:44 AM JUNIOR PROJECT MANAGER [facility] LABORATORY SERVICES - [facility] HEMOGLOBIN 12.1 11.8 - 14.8 g/dL 03/09/2018 6:44 AM JUNIOR PROJECT MANAGER [facility] LABORATORY SERVICES - [facility] HEMATOCRIT 37.6 35.5 - 44.0 % 03/09/2018 6:44 AM JUNIOR PROJECT MANAGER [facility] LABORATORY SERVICES - [facility] MCV 92.6 82.0 - 99.0 fL 03/09/2018 6:44 AM JUNIOR PROJECT MANAGER [facility] LABORATORY SERVICES - [facility] MCH 29.8 27.2 - 32.6 pg 03/09/2018 6:44 AM JUNIOR PROJECT MANAGER [facility] LABORATORY SERVICES - [facility] MCHC 32.2 31.5 - 35.5 g/dL 03/09/2018 6:44 AM JUNIOR PROJECT MANAGER [facility] LABORATORY SERVICES - [facility] RDW 13.7 11.5 - 14.5 % 03/09/2018 6:44 AM JUNIOR PROJECT MANAGER [employer] SERVICES - [facility] RDW-STDEV 46.6 37.1 - 48.7 fL 03/09/2018 6:44 AM [facility] [employer] [facility] - [facility] PLATELETS 242 140 - 350 K/uL 03/09/2018 6:44 AM [facility] [employer] [facility] - [facility] MPV 9.3 9.3 - 12.4 fL 03/09/2018 6:44 AM [facility] [employer] - [facility] NEUTROPHILS 49 % 03/09/2018 6:44 AM [facility] [employer] [facility] - [facility] LYMPHOCYTES 43 % 03/09/2018 6:44 AM JUNIOR PROJECT MANAGER [facility] LABORATORY SERVICES - [facility] MONOCYTES 6 % 03/09/2018 6:44 AM JUNIOR PROJECT MANAGER [employer] [facility] - [facility] EOSINOPHILS 1 % 03/09/2018 6:44 AM [facility] [employer] SERVICES - [facility] BASOPHILS 1 % 03/09/2018 6:44 AM [facility] [employer] [facility] IMMATURE GRANULOCYTES 0 % 03/09/2018 6:44 AM [facility] [employer] [facility] NEUTROPHIL ABSOLUTE 2.59 1.90 - 7.00 K/uL 03/09/2018 6:44 AM [facility] [employer] [facility] - [facility] LYMPHOCYTE ABSOLUTE 2.23 0.70 - 4.50 K/uL 03/09/2018 6:44 AM [facility] [employer] [facility] MONOCYTE ABSOLUTE 0.31 0.10 - 1.30 K/uL 03/09/2018 6:44 AM JUNIOR PROJECT MANAGER [employer] [facility] EOSINOPHIL ABSOLUTE 0.07 0.00 - 0.70 K/uL 03/09/2018 6:44 AM JUNIOR PROJECT MANAGER [employer] [facility] BASOPHILS ABSOLUTE 0.03 0.00 - 0.20 K/uL 03/09/2018 6:44 AM [employer] - [facility] IMMATURE GRANULOCYTES ABSOLUTE 0.02 0.00 - 0.03 K/uL 03/09/2018 6:44 AM [facility] - [facility] Blood 03/09/2018 5:39 AM JUNIOR PROJECT MANAGER 03/09/2018 6:24 AM JUNIOR PROJECT MANAGER Ceasar Vega MD HEMATOLOGY ORDERABLE S [employer] [facility]# [id number] [address] [place] [address] * (ABNORMAL) TRIGLYCERIDE (03/09/2018 5:39 AM JUNIOR PROJECT MANAGER) Pathologist [facility] TRIGLYCERIDE 2,339(H) <150 mg/dL 03/09/2018 7:22 AM [facility] [employer] [facility] Blood 03/09/2018 5:39 AM JUNIOR PROJECT MANAGER 03/09/2018 6:24 AM JUNIOR PROJECT MANAGER [facility] [employer] [facility] - 03/09/2018 7:22 AM JUNIOR PROJECT MANAGER TRIGLYCERIDES ? mg/dL Normal ?< 150 Borderline High ?150 - 199 High ? 200 - 499 Very High ? >= 500 Based on AHA/NCEP Guidelines. Alize Morel DO CHEMISTRY ORDERABLES [facility] [employer] [facility] [id number] [address] [place] [address] * (ABNORMAL) COMPREHENSIVE METABOLIC PANEL (03/09/2018 5:39 AM JUNIOR PROJECT MANAGER) Pathologist [facility] SODIUM 137 136 - 145 mmol/L 03/09/2018 7:10 AM [facility] [employer] LABORATORY SERVICES - . [facility] POTASSIUM 3.8 3.5 - 5.0 mmol/L 03/09/2018 7:10 AM [facility] [employer] LABORATORY SERVICES - . [facility] CHLORIDE 101 98 - 107 mmol/L 03/09/2018 7:10 AM [facility] [employer] LABORATORY SERVICES - . [facility] CO2 22 22 - 29 mmol/L 03/09/2018 7:10 AM [facility] [employer] LABORATORY SERVICES - . [facility] CALCIUM 8.6 8.6 - 10.2 mg/dL 03/09/2018 7:10 AM [facility] [employer] LABORATORY SERVICES - . [facility] BUN 5(L) 6 - 20 mg/dL 03/09/2018 7:10 AM [facility] [employer] LABORATORY SERVICES - . [facility] CREATININE 0.56 0.51 - 0.95 mg/dL 03/09/2018 7:10 AM JUNIOR PROJECT MANAGER [facility] LABORATORY SERVICES - . [facility] GLUCOSE 85 74 - 99 mg/dL 03/09/2018 7:10 AM [facility] [employer] LABORATORY SERVICES - . [facility] TOTAL PROTEIN 5.9(L) 6.7 - 8.6 g/dL 03/09/2018 7:10 AM [facility] [employer] LABORATORY SERVICES - . [facility] ALBUMIN 3.9 3.5 - 5.2 g/dL 03/09/2018 7:10 AM [facility] [employer] LABORATORY SERVICES - . [facility] BILIRUBIN TOTAL 0.3 0.3 - 1.2 mg/dL 03/09/2018 7:10 AM [facility] [employer] LABORATORY SERVICES - . [facility] ALKALINE PHOSPHATASE 49 35 - 104 U/L 03/09/2018 7:10 AM [facility] [employer] LABORATORY SERVICES - . [facility] AST 14 <33 U/L 03/09/2018 7:10 AM [facility] [employer] [facility] LABORATORY SERVICES - . [facility] ALT 9 <34 U/L 03/09/2018 7:10 AM [facility] [employer] LABORATORY SERVICES [facility] GFR >60 >=60 mL/min/1.7 3 sq meter 03/09/2018 7:10 AM [facility] [employer] SERVICES [facility] Comment: eGFR has [...] mL/min/1.7 3 sq meter 03/09/2018 7:10 AM JUNIOR PROJECT MANAGER [facility] LABORATORY SERVICES - . [facility] ANION GAP 14 8 - 16 mmol/L 03/09/2018 7:10 AM [facility] [employer] LABORATORY SERVICES [facility]. [facility] Blood 03/09/2018 5:39 AM JUNIOR PROJECT MANAGER 03/09/2018 6:24 AM [facility] [employer] LABORATORY SERVICES [facility] - 03/09/2018 7:10 AM JUNIOR PROJECT MANAGER Samples containing indocyanine green cause interferences on Total and/or Direct Bilirubin and must not be measured. Alize Morel DO CHEMISTRY ORDERABLES Performing Organization Address [facility] Co de Phone Number [facility]# [id number] [address] [place] [address] * POC GLUCOSE (03/09/2018 5:27 AM JUNIOR PROJECT MANAGER) GLUCOSE POC 75 74 - 99 mg/dL 03/09/2018 5:46 AM JUNIOR PROJECT MANAGER [facility] LAB[facility] UI SOFTWARE ENGINEER NAME ALIZE CANTU 03/09/2018 5:46 AM JUNIOR PROJECT MANAGER [facility] Whole blood specimen (specimen) 03/09/2018 5:27 AM JUNIOR PROJECT MANAGER 03/09/2018 5:46 AM JUNIOR PROJECT MANAGER Alize Morel POINT OF CARE TESTIN Maggie Performing Organization Address [facility] Phone Number [facility]# [id number] [address] [place] [address] * POC GLUCOSE (03/09/2018 12:33 AM JUNIOR PROJECT MANAGER) GLUCOSE POC 86 74 - 99 mg/dL 03/09/2018 12:48 AM JUNIOR PROJECT MANAGER [facility] UI SOFTWARE ENGINEER NAME ALIZE CANTU 03/09/2018 12:48 AM JUNIOR PROJECT MANAGER [facility] Whole blood specimen (specimen) 03/09/2018 12:33 AM JUNIOR PROJECT MANAGER 03/09/2018 12:48 AM JUNIOR PROJECT MANAGER Alize Morel DO POINT OF CARE VINICIUSIN Maggie Performing Organization Address City/[facility]/ZIP Co de Phone Number [facility]# [id number] [address] [place] [address] * POC GLUCOSE (03/08/2018 9:17 PM JUNIOR PROJECT MANAGER) GLUCOSE POC 92 74 - 99 mg/dL 03/08/2018 9:35 PM JUNIOR PROJECT MANAGER [facility] UI SOFTWARE ENGINEER NAME POC ALIZE DARLING 03/08/2018 9:35 PM JUNIOR PROJECT MANAGER [facility] Whole blood specimen (specimen) 03/08/2018 9:17 PM JUNIOR PROJECT MANAGER 03/08/2018 9:35 PM JUNIOR PROJECT MANAGER Alize Morel DO POINT OF CARE TESTIN Maggie Performing Organization Address [facility] de Phone Number [facility]# [id number] [address] [facility] [place] [address] * POC GLUCOSE (03/08/2018 6:22 PM JUNIOR PROJECT MANAGER) GLUCOSE POC 76 74 - 99 mg/dL 03/08/2018 6:35 PM JUNIOR PROJECT MANAGER [facility] UI SOFTWARE ENGINEER NAME POC NICOLÁS RENDONMMA (ELI) 03/08/2018 6:35 PM JUNIOR PROJECT MANAGER [facility] Whole blood specimen (specimen) 03/08/2018 6:22 PM JUNIOR PROJECT MANAGER 03/08/2018 6:35 PM JUNIOR PROJECT MANAGER Alize Morel DO POINT OF CARE TESTIN Maggie Performing Organization Address [facility] Phone Number [facility]# [id number] [address] [place] [address] * POC GLUCOSE (03/08/2018 2:26 PM JUNIOR PROJECT MANAGER) GLUCOSE POC 92 74 - 99 mg/dL 03/08/2018 2:42 PM JUNIOR PROJECT MANAGER [facility] UI SOFTWARE ENGINEER NAME POC ANNETTA HARVEY (ELI) 03/08/2018 2:42 PM JUNIOR PROJECT MANAGER [facility] Whole blood specimen (specimen) 03/08/2018 2:26 PM JUNIOR PROJECT MANAGER 03/08/2018 2:42 PM JUNIOR PROJECT MANAGER Alize Morel DO POINT OF CARE TESTIN Maggie Performing Organization Address [facility]/ZIP Co de Phone Number [facility]# [id number] [address] [place] [address] * (ABNORMAL) TRIGLYCERIDE (03/08/2018 1:02 PM JUNIOR PROJECT MANAGER) TRIGLYCERIDE 2,887(H) <150 mg/dL 03/08/2018 2:32 PM JUNIOR PROJECT MANAGER [facility] Blood BLOOD SPECIMEN / Unknown Venipuncture / Unknown 03/08/2018 1:02 PM JUNIOR PROJECT MANAGER 03/08/2018 1:47 PM JUNIOR PROJECT MANAGER Narrative [facility] - 03/08/2018 2:32 PM JUNIOR PROJECT MANAGER TRIGLYCERIDES ? mg/dL Normal ?< 150 Borderline High ?150 - 199 High ? 200 - 499 Very High ? >= 500 Based on AHA/NCEP Guidelines. Ceasar Vega MD CHEMISTRY ORDERABLES [facility]# [id number] [address] [place] [address] * UPPER ENDOSCOPY REPORT (03/08/2018 12:04 PM JUNIOR PROJECT MANAGER) Narrative Procedure Note Ceasar Vega MD - 03/08/2018 12:03 PM CST [facility] Endoscopy Patient Name: Linda Doss Procedure [...] of Addenda: [address]; [place] [address] Ceasar Vega MD GI PROCEDURE ORDERAB LES * PATHOLOGY (03/08/2018 11:55 AM JUNIOR PROJECT MANAGER) CASE REPORT Surgical Pathology Report ? Case: [id number] ? Authorizing Provider: ??Ceasar Vega MD ?Collected: ? 03/08/2018 11:55 AM ? Ordering Location: ? [facility] Carl Osorio ??Received: ?03/10/2018 09:09 AM ? Pathologist: ? Jam Montgomery, DO ? Specimen: ?Stomach, bx ? 03/11/2018 5:47 PM [facility] [employer] [facility] FINAL DIAGNOSIS Stomach, endoscopic biopsy: - Mild chronic gastritis. 03/11/2018 5:47 PM [facility] IMEN DESCRIPTION Stomach biopsy. 03/11/2018 5:47 PM [facility] OPERATIVE PROCEDURE Esophagogastroduodeno scopy. 03/11/2018 5:47 PM [facility] CLINICAL DIAGNOSIS Rule out H. pylori infection. 03/11/2018 5:47 PM [facility] GROSS DESCRIPTION The specimen is received in a single container labeled Linda Doss, stomach biopsy and consists of seven pieces of white tissue that are 0.1 to 0.4 cm in greatest dimension. The entire specimen is submitted in cassette A1. [facility]/dony 03/11/2018 5:47 PM [facility] MICROSCOPIC DESCRIPTION The slides are received labeled [id number] and Linda Doss Sections of the stomach [...] contaminant, possible esophageal mucosa. 03/11/2018 5:47 PM JUNIOR PROJECT MANAGER [facility] COMMENT Special stain and/or immunohistochemical results are interpreted with controls that demonstrate appropriate staining reactions. Note on use of immunocytochemistry reagents: This test was developed and its performance characteristic determined by [facility], Department of Laboratory Medicine. It has [...] WF, WB and WH are performed by [address], [address]. All other case types are performed by [facility] [address] [facility] [address]. 03/11/2018 5:47 PM [facility] Tissue ENTIRE STOMACH / Unknown Collection / Unknown 03/08/2018 11:55 AM JUNIOR PROJECT MANAGER 03/10/2018 9:09 AM JUNIOR PROJECT MANAGER Comment:Gastritis, r/o h.pyl miguel Ceasar Vega MD PATHOLOGY/CYTOLOGY O RDERABLES [facility] CLIA# [id number] [address] [facility] [address] [place] [place] [address] * (ABNORMAL) POC GLUCOSE (03/08/2018 10:54 AM JUNIOR PROJECT MANAGER) GLUCOSE POC 114(H) 74 - 99 mg/dL 03/08/2018 11:07 AM JUNIOR PROJECT MANAGER [facility] UI SOFTWARE ENGINEER NAME POC AWILDA PAGAN 03/08/2018 11:07 AM JUNIOR PROJECT MANAGER [facility] Whole blood specimen (specimen) 03/08/2018 10:54 AM JUNIOR PROJECT MANAGER 03/08/2018 11:07 AM JUNIOR PROJECT MANAGER Alize Morel DO POINT OF CARE TESTIN G Performing Organization Address [facility]/ZIP Co de Phone Number [facility] CLIA# [id number] [address] [place] [address] * (ABNORMAL) POC GLUCOSE (03/08/2018 10:13 AM JUNIOR PROJECT MANAGER) GLUCOSE POC 114(H) 74 - 99 mg/dL 03/08/2018 10:28 AM [facility] LABORATORY [facility] COMMENT, GLU POC Notified RN/MD 03/08/2018 10:28 AM [facility]AT[facility] UI SOFTWARE ENGINEER NAME POC JEFF BLOOD 03/08/2018 10:28 AM [facility] LABORATORY SERVICES [facility] Whole blood specimen (specimen) 03/08/2018 10:13 AM JUNIOR PROJECT MANAGER 03/08/2018 10:28 AM JUNIOR PROJECT MANAGER Alize Morel DO POINT OF CARE TESTJERONIMO Maggie Performing Organization Address [facility]/ZIP Co de Phone Number [facility] CLIA# [id number] [address] [place] [address] * (ABNORMAL) POC GLUCOSE (03/08/2018 8:01 AM JUNIOR PROJECT MANAGER) GLUCOSE POC 129(H) 74 - 99 mg/dL 03/08/2018 8:26 AM [facility] LABORATORY [facility] UI SOFTWARE ENGINEER NAME POC HARVEY RENDON (ELI) 03/08/2018 8:26 AM JUNIOR PROJECT MANAGER [facility] Whole blood specimen (specimen) 03/08/2018 8:01 AM JUNIOR PROJECT MANAGER 03/08/2018 8:25 AM JUNIOR PROJECT MANAGER Alize Morel DO POINT OF CARE TESTJERONIMO Maggie Performing Organization Address City/[facility]/ZIP Co de Phone Number [facility] CLIA# [id number] [address] [place] [address] * (ABNORMAL) HEMOGLOBIN A1C (03/08/2018 5:15 AM JUNIOR PROJECT MANAGER) HEMOGLOBIN A1C 8.7(H) <5.7 % 03/08/2018 10:47 AM JUNIOR PROJECT MANAGER [facility] LABORATORY SERVICES [facility] EST. AVG GLUCOSE, A1C 203 mg/dL 03/08/2018 10:47 AM [facility] [employer] Blood Venipuncture / Unknown 03/08/2018 5:15 AM JUNIOR PROJECT MANAGER 03/08/2018 5:59 AM JUNIOR PROJECT MANAGER Narrative [facility] LABORAT[facility] - 03/08/2018 10:47 AM JUNIOR PROJECT MANAGER HGB A1C INTERPRETATION NORMAL: ? <5.7% PRE-DIABETES: 5.7 - 6.4% DIABETES: ? 6.5% OR GREATER Alize Morel CHEMISTRY ORDERABLES Performing Organization Address City/[facility]/ZIP Co de Phone Number [facility] CLIA# [id number] [address] [place] [address] * LIPASE (03/08/2018 5:15 AM JUNIOR PROJECT MANAGER) LIPASE 16 13 - 60 U/L 03/08/2018 8:15 AM [facility] [employer] [place] Blood Venipuncture / Unknown 03/08/2018 5:15 AM JUNIOR PROJECT MANAGER 03/08/2018 5:59 AM JUNIOR PROJECT MANAGER Alize Morel DO CHEMISTRY ORDERABLES Performing Organization Address [facility] Co de Phone Number [facility]# [id number] [address] [place] [address] * (ABNORMAL) BASIC METABOLIC PANEL (03/08/2018 5:15 AM JUNIOR PROJECT MANAGER) SODIUM 135(L) 136 - 145 mmol/L 03/08/2018 6:50 AM [facility] LABORATORY [facility] POTASSIUM 4.0 3.5 - 5.0 mmol/L 03/08/2018 6:50 AM [facility] [employer] LABORATORY [facility] Comment: Slightly hemolyzed. Result may be falsely elevated. CHLORIDE 96(L) 98 - 107 mmol/L 03/08/2018 6:50 AM [facility] [employer] LABORATORY [facility] CO2 22 22 - 29 mmol/L 03/08/2018 6:50 AM [facility] [employer] [facility] CALCIUM 8.4(L) 8.6 - 10.2 mg/dL 03/08/2018 6:50 AM [facility] BUN 9 6 - 20 mg/dL 03/08/2018 6:50 AM [facility] CREATININE 0.53 0.51 - 0.95 mg/dL 03/08/2018 6:50 AM [facility] GLUCOSE 117(H) 74 - 99 mg/dL 03/08/2018 6:50 AM [facility] GFR >60 >=60 mL/min/1.7 3 sq meter 03/08/2018 6:50 AM [facility] Comment: eGFR has not been validated [...] mL/min/1.7 3 sq meter 03/08/2018 6:50 AM [facility] ANION GAP 17(H) 8 - 16 mmol/L 03/08/2018 6:50 AM [facility] Blood Venipuncture / Unknown 03/08/2018 5:15 AM JUNIOR PROJECT MANAGER 03/08/2018 5:59 AM JUNIOR PROJECT MANAGER Ceasar Vega MD CHEMISTRY ORDERABLES [facility]# [id number] [address] [facility] [address] [place] [place] [address] * (ABNORMAL) CBC WITH DIFFERENTIAL (03/08/2018 5:15 AM JUNIOR PROJECT MANAGER) WBC 6.6 4.0 - 9.8 K/uL 03/08/2018 6:23 AM [facility] LAB[facility]ATORY [facility] RBC 4.10 3.90 - 4.90 M/uL 03/08/2018 6:23 AM [facility] [employer] LAB[facility]ATORY SERVICES [facility] HEMOGLOBIN 12.4 11.8 - 14.8 g/dL 03/08/2018 6:23 AM [facility] [employer] LAB[facility]ATORY SERVICES [facility] HEMATOCRIT 38.0 35.5 - 44.0 % 03/08/2018 6:23 AM JUNIOR PROJECT MANAGER [employer] [facility]ATORY [facility] MCV 92.7 82.0 - 99.0 fL 03/08/2018 6:23 AM JUNIOR PROJECT MANAGER [employer] [facility]ATORY [facility] MCH 30.2 27.2 - 32.6 pg 03/08/2018 6:23 AM [facility] LABORATORY SERVICES [facility] MCHC 32.6 31.5 - 35.5 g/dL 03/08/2018 6:23 AM [facility] [employer] LAB[facility]ATORY SERVICES [facility] RDW 13.7 11.5 - 14.5 % 03/08/2018 6:23 AM [facility] LABORATORY SERVICES - [facility] [place] RDW-STDEV 46.6 37.1 - 48.7 fL 03/08/2018 6:23 AM [facility] PLATELETS 259 140 - 350 K/uL 03/08/2018 6:23 AM [facility] LABORATORY SERVICES - [facility] [place] MPV 9.2(L) 9.3 - 12.4 fL 03/08/2018 6:23 AM JUNIOR PROJECT MANAGER [employer] [facility]ATORY [facility] NEUTROPHILS 48 % 03/08/2018 6:23 AM [facility] LYMPHOCYTES 44 % 03/08/2018 6:23 AM [facility] MONOCYTES 6 % 03/08/2018 6:23 AM [facility] EOSINOPHILS 1 % 03/08/2018 6:23 AM [facility] BASOPHILS 0 % 03/08/2018 6:23 AM [facility] IMMATURE GRANULOCYTES 1 % 03/08/2018 6:23 AM [facility] Comment:IG (Immature Granulo cyte) count includes Metamyelocytes, Myelocytes, and Promyelocytes NEUTROPHIL ABSOLUTE 3.19 1.90 - 7.00 K/uL 03/08/2018 6:23 AM [facility]AT[facility] LYMPHOCYTE ABSOLUTE 2.93 0.70 - 4.50 K/uL 03/08/2018 6:23 AM [facility] LABORATORY [facility] MONOCYTE ABSOLUTE 0.39 0.10 - 1.30 K/uL 03/08/2018 6:23 AM [facility] EOSINOPHIL ABSOLUTE 0.07 0.00 - 0.70 K/uL 03/08/2018 6:23 AM [facility] BASOPHILS ABSOLUTE 0.02 0.00 - 0.20 K/uL 03/08/2018 6:23 AM [facility] IMMATURE GRANULOCYTES ABSOLUTE 0.04(H) 0.00 - 0.03 K/uL 03/08/2018 6:23 AM [facility] Blood Venipuncture / Unknown 03/08/2018 5:15 AM JUNIOR PROJECT MANAGER 03/08/2018 5:59 AM JUNIOR PROJECT MANAGER Ceasar Vega MD HEMATOLOGY ORDERABLE S [facility]# [id number] [address] [facility] [place] [place] [address] * (ABNORMAL) LIPID PANEL (03/08/2018 5:15 AM JUNIOR PROJECT MANAGER) CHOLESTEROL 635(H) <200 mg/dL 03/08/2018 7:01 AM [facility] TRIGLYCERIDE 2,964(H) <150 mg/dL 03/08/2018 7:01 AM [facility] HDL 40 - 59 mg/dL 03/08/2018 7:01 AM [facility] Comment: Measured HDL is not accurate when the Triglyceride value exceeds 1200. LDL CALCULATED <100 mg/dL 03/08/2018 7:01 AM [facility] Comment:Calculated LDL is no t accurate when the Triglyceride value exceeds 400. NON-HDL CHOLESTEROL <130 mg/dL 03/08/2018 7:01 AM [facility] Comment:Non HDL Cholesterol cannot be calculated when the HDL value is suppressed. Blood Venipuncture / Unknown 03/08/2018 5:15 AM JUNIOR PROJECT MANAGER 03/08/2018 5:59 AM JUNIOR PROJECT MANAGER Narrative [facility] - 03/08/2018 7:01 AM JUNIOR PROJECT MANAGER TOTAL CHOLESTEROL ??mg/dL ??Desirable <200 ??Borderline high [...] Tapia MD CHEMISTRY ORDERABLES Performing Organization Address City/[facility]/ZIP Co de Phone Number [facility]# [id number] [address] [place], [place] [address] * (ABNORMAL) POC GLUCOSE (03/08/2018 3:23 AM JUNIOR PROJECT MANAGER) Pathologist [facility] GLUCOSE POC 138(H) 74 - 99 mg/dL 03/08/2018 3:36 AM [facility] UI SOFTWARE ENGINEER NAME POC CONSTANTINO DEL CID 03/08/2018 3:36 AM [facility] Whole blood specimen (specimen) 03/08/2018 3:23 AM JUNIOR PROJECT MANAGER 03/08/2018 3:36 AM JUNIOR PROJECT MANAGER Pernell Tapia MD POINT OF CARE TESTIN G [facility]# [id number] [address] [place] [address] * (ABNORMAL) URINALYSIS WITH REFLEX MICROSCOPIC (03/07/2018 11:04 PM JUNIOR PROJECT MANAGER) COLOR UA Yellow Pale to Dark Yellow 03/07/2018 11:23 PM [facility] LABORATORY [facility] CLARITY UA Clear Clear 03/07/2018 11:23 PM [facility] LABORATORY [facility] SPECIFIC GRAVITY UA >1.035(H) 1.003 - 1.035 03/07/2018 11:23 PM [facility] LABORATORY [facility] PH UA 5.0 5.0 - 8.0 03/07/2018 11:23 PM [facility] LABORATORY [facility] LEUKOCYTE ESTERASE UA Negative Negative 03/07/2018 11:23 PM [facility] NITRITE UA Negative Negative 03/07/2018 11:23 PM [facility] PROTEIN UA Negative Negative 03/07/2018 11:23 PM [facility] GLUCOSE UA Negative Negative 03/07/2018 11:23 PM [facility] KETONES UA Negative Negative 03/07/2018 11:23 PM [facility] UROBILINOGEN UA Normal <2.0 mg/dL 8 11:23 PM [facility] [facility] BILIRUBIN UA Negative Negative 03/07/2018 11:23 PM [facility] BLOOD UA Negative Negative 03/07/2018 11:23 PM [facility] Urine URINE SPECIMEN OBTAINED BY CLEAN CATCH PROCEDURE / Unknown Collection / Unknown 03/07/2018 11:04 PM JUNIOR PROJECT MANAGER 03/07/2018 11:11 PM JUNIOR PROJECT MANAGER Pernell Lind MD URINE ORDERABLES [facility] [id number] [address] [facility] [place] [address] * (ABNORMAL) POC GLUCOSE (03/07/2018 10:58 PM JUNIOR PROJECT MANAGER) GLUCOSE POC 130(H) 74 - 99 mg/dL 03/07/2018 11:19 PM JUNIOR PROJECT MANAGER [facility] LABORATORY SERVICES [facility] COMMENT, GLU POC Notified RN/ 03/07/2018 11:19 PM JUNIOR PROJECT MANAGER [facility] LABORATORY SERVICES - . [place] UI SOFTWARE ENGINEER NAME POC ZURI MCCALL 03/07/2018 11:19 PM JUNIOR PROJECT MANAGER [facility] LABORATORY [facility] Whole blood specimen (specimen) 03/07/2018 10:58 PM JUNIOR PROJECT MANAGER 03/07/2018 11:19 PM JUNIOR PROJECT MANAGER Almas Ortega MD POINT OF CARE TESTIN G [facility] CLIA# [id number] [address] [facility] [place] [address] * CT ABDOMEN PELVIS W CONTRAST (03/07/2018 6:24 PM JUNIOR PROJECT MANAGER) Anatomical Region Laterality Modality Abdomen Computed Tomogra phy 03/07/2018 6:24 PM JUNIOR PROJECT MANAGER Impressions 03/08/2018 1:23 PM JUNIOR PROJECT MANAGER IMPRESSION: Status post hysterectomy. Partial duplication of [...] 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 DICTATION LOCATION: Location 1 - [facility] Narrative 03/08/2018 1:23 PM JUNIOR PROJECT MANAGER EXAM: CT ABDOMEN AND PELVIS WITH IV [...] 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 DICTATION LOCATION: Location 1 - [facility] Pernell Lind MD CT ORDERABLES * LIPASE (03/07/2018 2:15 PM JUNIOR PROJECT MANAGER) Pathologist [facility] LIPASE 31 13 - 60 U/L 03/07/2018 3:02 PM JUNIOR PROJECT MANAGER [facility] Blood Venipuncture / Unknown 03/07/2018 2:15 PM JUNIOR PROJECT MANAGER 03/07/2018 2:25 PM JUNIOR PROJECT MANAGER Pernell Lind MD CHEMISTRY ORDERABLES [facility] [id number] [address] [facility] [place] [id number] * (ABNORMAL) COMPREHENSIVE METABOLIC PANEL (03/07/2018 2:15 PM JUNIOR PROJECT MANAGER) Pathologist [facility] SODIUM 128(L) 136 - 145 mmol/L 03/07/2018 4:50 PM JUNIOR PROJECT MANAGER [facility] POTASSIUM 3.5 - 5.0 mmol/L 03/07/2018 4:50 PM JUNIOR PROJECT MANAGER [facility] Comment: Gross hemolysis present. ??Result unreliable. CHLORIDE 93(L) 98 - 107 mmol/L 03/07/2018 4:50 PM [facility] LABORATORY [facility] CO2 21(L) 22 - 29 mmol/L 03/07/2018 4:50 PM [facility] LABORATORY [facility] CALCIUM 9.2 8.6 - 10.2 mg/dL 03/07/2018 4:50 PM [facility] LABORATORY [facility] BUN 9 6 - 20 mg/dL 03/07/2018 4:50 PM [facility] CREATININE 0.39(L) 0.51 - 0.95 mg/dL 03/07/2018 4:50 PM [facility] GLUCOSE 122(H) 74 - 99 mg/dL 03/07/2018 4:50 PM [facility] TOTAL PROTEIN 7.3 6.7 - 8.6 g/dL 03/07/2018 4:50 PM [facility] ALBUMIN 4.2 3.5 - 5.2 g/dL 03/07/2018 4:50 PM [facility] BILIRUBIN TOTAL 0.2(L) 0.3 - 1.2 mg/dL 03/07/2018 4:50 PM [facility] ALKALINE PHOSPHATASE 35 - 104 U/L 03/07/2018 4:50 PM [facility] Comment: Gross hemolysis present. ??Result unreliable. AST 6 <33 U/L 03/07/2018 4:50 PM [facility] Comment: Cleared of chylomicrons. Hemolysis present. Result may be falsely elevated. ALT 16 <34 U/L 03/07/2018 4:50 PM [facility] Comment: Cleared of chylomicrons. Hemolysis present. Result may be falsely elevated. GFR >60 >=60 mL/min/1.7 3 sq meter 03/07/2018 4:50 PM [facility] Comment: eGFR has not been validated [...] mL/min/1.7 3 sq meter 03/07/2018 4:50 PM [facility] [place] [facility] ANION GAP 14 8 - 16 mmol/L 03/07/2018 4:50 PM [facility] Blood Venipuncture / Unknown 03/07/2018 2:15 PM JUNIOR PROJECT MANAGER 03/07/2018 2:25 PM [facility] - 03/07/2018 4:50 PM JUNIOR PROJECT MANAGER Samples containing indocyanine green cause interferences on Total and/or Direct Bilirubin and must not be measured. Pernell Lind MD CHEMISTRY ORDERABLES [facility]# [id number] 5 S[facility]LY [facility] [place] [address] * (ABNORMAL) CBC WITH DIFFERENTIAL (03/07/2018 2:15 PM JUNIOR PROJECT MANAGER) WBC 7.8 4.0 - 9.8 K/uL 03/07/2018 2:36 PM [facility] RBC 4.69 3.90 - 4.90 M/uL 03/07/2018 2:36 PM [facility] HEMOGLOBIN 14.7 11.8 - 14.8 g/dL 03/07/2018 2:36 PM [facility] HEMATOCRIT 42.4 35.5 - 44.0 % 03/07/2018 2:36 PM [facility] MCV 90.4 82.0 - 99.0 fL 03/07/2018 2:36 PM [facility] [place] MCH 31.3 27.2 - 32.6 pg 03/07/2018 2:36 PM [facility] [place] [facility] MCHC 34.7 31.5 - 35.5 g/dL 03/07/2018 2:36 PM JUNIOR PROJECT MANAGER [facility] RDW 13.6 11.5 - 14.5 % 03/07/2018 2:36 PM JUNIOR PROJECT MANAGER [facility] RDW-STDEV 44.3 37.1 - 48.7 fL 03/07/2018 2:36 PM [facility] [place] PLATELETS 339 140 - 350 K/uL 03/07/2018 2:36 PM JUNIOR PROJECT MANAGER [facility] MPV 9.5 9.3 - 12.4 fL 03/07/2018 2:36 PM JUNIOR PROJECT MANAGER [facility] NEUTROPHILS 60 % 03/07/2018 2:36 PM JUNIOR PROJECT MANAGER [facility] LYMPHOCYTES 33 % 03/07/2018 2:36 PM [facility] MONOCYTES 5 % 03/07/2018 2:36 PM JUNIOR PROJECT MANAGER [facility] EOSINOPHILS 1 % 03/07/2018 2:36 PM JUNIOR PROJECT MANAGER [facility] BASOPHILS 1 % 03/07/2018 2:36 PM JUNIOR PROJECT MANAGER [facility] IMMATURE GRANULOCYTES 1 % 03/07/2018 2:36 PM JUNIOR PROJECT MANAGER [facility] Comment:IG (Immature Granulo cyte) count includes Metamyelocytes, Myelocytes, and Promyelocytes NEUTROPHIL ABSOLUTE 4.67 1.90 - 7.00 K/uL 03/07/2018 2:36 PM [facility] [place] LYMPHOCYTE ABSOLUTE 2.60 0.70 - 4.50 K/uL 03/07/2018 2:36 PM JUNIOR PROJECT MANAGER [facility] MONOCYTE ABSOLUTE 0.37 0.10 - 1.30 K/uL 03/07/2018 2:36 PM [facility] EOSINOPHIL ABSOLUTE 0.08 0.00 - 0.70 K/uL 03/07/2018 2:36 PM JUNIOR PROJECT MANAGER [facility] BASOPHILS ABSOLUTE 0.04 0.00 - 0.20 K/uL 03/07/2018 2:36 PM JUNIOR PROJECT MANAGER [facility] - . [facility] IMMATURE GRANULOCYTES ABSOLUTE 0.05(H) 0.00 - 0.03 K/uL 03/07/2018 2:36 PM JUNIOR PROJECT MANAGER [facility] - [facility] Blood Venipuncture / Unknown 03/07/2018 2:15 PM JUNIOR PROJECT MANAGER 03/07/2018 2:25 PM JUNIOR PROJECT MANAGER Pernell Lind MD HEMATOLOGY ORDERABLE S [facility]# [id number] [address] [place] [id number] documented in this encounter Visit Diagnoses Not on filedocumented in this encounter Administered Medications Inactive Administered Medications - up to 3 most recent administrations Medication Order MAR Action Action Date Dose Rate Site acetaminophen (TYLENOL) tablet 650 mg 650 mg, Oral, EVERY 6 HOURS PRN, Starting on 03/08/18 at 1358, Until 03/09/18 at 1738, Pain, Break-Through, Routine Given 03/09/2018 5:34 AM JUNIOR PROJECT MANAGER 650 mg Given 03/08/2018 8:06 PM JUNIOR PROJECT MANAGER 650 mg Given 03/08/2018 2:28 PM JUNIOR PROJECT MANAGER 650 mg atorvastatin (LIPITOR) tablet 80 mg 80 mg, Oral, DAILY AT BEDTIME, First dose on 03/08/18 at 0000, Until Discontinued, Routine Given 03/08/2018 9:14 PM JUNIOR PROJECT MANAGER 80 mg Given 03/08/2018 4:13 AM JUNIOR PROJECT MANAGER 80 mg citalopram (CeleXA) tablet 40 mg 40 mg, Oral, DAILY, First dose on 03/08/18 at 0900, Until Discontinued, Routine Given 03/09/2018 10: 00 AM JUNIOR PROJECT MANAGER 40 mg Given 03/08/2018 8:10 AM JUNIOR PROJECT MANAGER 40 mg dextrose 5% - sodium chloride [...] Itching, Restlessness, Routine Given 03/08/2018 8:05 PM JUNIOR PROJECT MANAGER 25 mg Given 03/08/2018 2:27 PM JUNIOR PROJECT MANAGER 25 mg enoxaparin (LOVENOX) injection 40 mg 40 mg, subCUT, EVERY 24 HOURS, First dose on 03/08/18 at 0900, Until Discontinued, Routine Given 03/09/2018 10:00 AM JUNIOR PROJECT MANAGER 40 mg Abdomen, Left Lower Quadrant Given 03/08/2018 1:19 PM JUNIOR PROJECT MANAGER 40 mg Ab domen, Left Lower Quadrant fenofibrate (LOFIBRA) tablet 160 mg 160 mg, Oral, DAILY, First dose on 03/08/18 at 0900, Until Discontinued, Routine Given 03/08/2018 1:12 PM JUNIOR PROJECT MANAGER 160 mg Fish Oil-Greenfield-3 Fatty Acids 360-1,200 mg capsule 2 Capsule 2 Capsule, Oral, TWO TIMES DAILY, First dose (after last modification) on 03/08/18 at 1030, Until Discontinued, Routine Given 03/09/2018 10:00 AM JUNIOR PROJECT MANAGER 2 Capsules Given 03/08/2018 9:13 PM JUNIOR PROJECT MANAGER 2 Capsules Given 03/08/2018 1:11 PM JUNIOR PROJECT MANAGER 2 Capsules gemfibrozil (LOPID) tablet 600 mg 600 mg, Oral, TWO TIMES DAILY BEFORE MEALS, First dose on 03/08/18 at 1600, Until Discontinued, Routine Given 03/09/2018 5:30 AM JUNIOR PROJECT MANAGER 600 mg Given 03/08/2018 8:06 PM JUNIOR PROJECT MANAGER 600 mg glucagon HCl 1 mg injection 1 mg 1 mg, IM, SEE ADMIN INSTRUCTIONS, Starting on 03/08/18 at 0246, Until 03/09/18 at 1738, Routine hyoscyamine (LEVSIN) sublingual tablet 0.125 mg 0.125 mg, Sublingual, EVERY 6 HOURS PRN, Starting on 03/08/18 at 1307, Until 03/09/18 at 1738, Spasm, Routine Given 03/09/2018 10:10 AM JUNIOR PROJECT MANAGER 0.125 mg Given 03/08/2018 2:28 PM JUNIOR PROJECT MANAGER 0.125 mg insulin glargine (LANTUS) injection 10 Units 10 Units, subCUT, TWO TIMES DAILY, First dose (after last modification) on 03/09/18 at 2100, Until Discontinued, Routine insulin glargine (LANTUS) injection 20 Units 20 Units, subCUT, TWO TIMES DAILY, First dose on 03/08/18 at 0800, Until Discontinued, Routine Given 03/08/2018 9:19 PM JUNIOR PROJECT MANAGER 20 Units Arm, Right Upper Given 03/08/2018 8:06 AM JUNIOR PROJECT MANAGER 20 Units De ltoid, Left insulin lispro (HumaLOG) injection 5 Units 5 Units, subCUT, THREE TIMES DAILY WITH MEALS, First dose on 03/09/18 at 1200, Until Discontinued, Routine Given 03/09/2018 2:16 PM JUNIOR PROJECT MANAGER 5 Units Arm, Right Upper insulin lispro (HumaLOG) variable dose injection subCUT, THREE TIMES DAILY WITH MEALS, First dose (after last modification) on 03/09/18 at 1200, Until Discontinued, Routine iopamidol (ISOVUE-300) 61 % injection 125 mL 125 mL, IV, INTRA-PROCEDURE ONCE, 1 dose, Starting on Sat03/07/18 at 1744, Until Sat03/07/18 at 1824, Routine Contrast Given 03/07/2018 6:24 PM JUNIOR PROJECT MANAGER 125 mL lactated Ringers solution IV, at 125 mL/hr, PRE-PROCEDURE CONTINUOUS, Starting on 03/08/18 at 1100, Until 03/08/18 at 1254, Routine Continue from Pre-Op 03/08/2018 11:53 AM JUNIOR PROJECT MANAGER New Bag 03/08/2018 10:55 AM JUNIOR PROJECT MANAGER 125 mL/hr levothyroxine (SYNTHROID) tablet 175 mcg 175 mcg, Oral, DAILY EARLY, First dose on 03/08/18 at 0600, Until Discontinued, Routine Given 03/08/2018 7:26 AM JUNIOR PROJECT MANAGER 175 mcg levothyroxine (SYNTHROID) tablet 200 mcg 200 mcg, Oral, DAILY EARLY, First dose (after last modification) on 03/09/18 at 0600, Until Discontinued, Routine Given 03/09/2018 5:30 AM JUNIOR PROJECT MANAGER 200 mcg LORazepam (ATIVAN) 2 mg/mL injection 0.25 mg 0.25 mg, IV, TWO TIMES DAILY PRN, Starting on Sat03/07/18 at 2342, Until Sat03/08/18 at 1308, Anxiety, Routine Given 03/08/2018 12:32 AM JUNIOR PROJECT MANAGER 0.25 mg morphine 4 mg/mL injection 2 mg 2 mg, IV, EVERY 3 HOURS PRN, Starting on Sat03/07/18 at 2341, Until 03/08/18 at 1308, Pain (See admin instructions), Routine Given 03/08/2018 7:27 AM JUNIOR PROJECT MANAGER 2 mg Given 03/08/2018 4:09 AM JUNIOR PROJECT MANAGER 2 mg morphine 4 mg/mL injection 4 mg 4 mg, IV, ONE TIME ONLY, 1 dose, On Sat03/07/18 at 1715, Routine Given 03/07/2018 5:25 PM JUNIOR PROJECT MANAGER 4 mg morphine 4 mg/mL injection 4 mg 4 mg, IV, ONE TIME ONLY, 1 dose, On Sat03/07/18 at 1945, Routine Given 03/07/2018 8:18 PM JUNIOR PROJECT MANAGER 4 mg morphine 4 mg/mL injection 4 mg 4 mg, IV, EVERY 3 HOURS PRN, Starting on Sat03/07/18 at 2208, Until Sat03/07/18 at 2345, Pain (See admin instructions), Routine Given 03/07/2018 10:41 PM JUNIOR PROJECT MANAGER 4 mg niacin (NIACOR) tablet 500 mg 500 mg, Oral, TWO TIMES DAILY, First dose on 03/08/18 at 1030, Until Discontinued, Routine Given 03/08/2018 1:11 PM JUNIOR PROJECT MANAGER 500 mg niacin (NIASPAN ER) SR 24 hour tablet 500 mg 500 mg, Oral, TWO TIMES DAILY WITH MEALS, First dose on 03/08/18 at 2300, Until Discontinued, Routine Given 03/09/2018 10:03 AM JUNIOR PROJECT MANAGER 500 mg Given 03/08/2018 10:40 PM JUNIOR PROJECT MANAGER 500 mg ondansetron (ZOFRAN ODT) tablet 4 mg 4 mg, Oral, EVERY 6 HOURS PRN, Starting on Sat03/07/18 at 2344, Until 03/09/18 at 1738, Nausea/Emesis, Routine Given 03/08/2018 10:41 PM JUNIOR PROJECT MANAGER 4 mg Given 03/08/2018 12:28 AM JUNIOR PROJECT MANAGER 4 mg pantoprazole (PROTONIX) tablet 40 mg 40 mg, Oral, DAILY, First dose on 03/08/18 at 1430, Until Discontinued, Routine Given 03/09/2018 10: 00 AM JUNIOR PROJECT MANAGER 40 mg Given 03/08/2018 2:44 PM JUNIOR PROJECT MANAGER 40 mg potassium Cl 20 mEq in dextrose 5% - NaCl 0.45% 1000 mL infusion IV, at 125 mL/hr, CONTINUOUS, Starting on Sat03/07/18 at 2215, Until Sat03/07/18 at 2346, Routine New Bag 03/07/2018 10:37 PM JUNIOR PROJECT MANAGER 125 mL/hr prochlorperazine (COMPAZINE) injection 5 mg 5 mg, IV, ONE TIME ONLY, 1 dose, On Sat03/07/18 at 1715, Routine Given 03/07/2018 5:25 PM JUNIOR PROJECT MANAGER 5 mg prochlorperazine (COMPAZINE) injection 5 mg 5 mg, IV, EVERY 6 HOURS PRN, Starting on Sat03/07/18 at 2208, Until Sat03/09/18 at 1738, Nausea, Routine Given 03/09/2018 10:13 AM JUNIOR PROJECT MANAGER 5 mg Given 03/08/2018 1:22 PM JUNIOR PROJECT MANAGER 5 mg Given 03/08/2018 4:10 AM JUNIOR PROJECT MANAGER 5 mg sodium chloride 0.9% bolus solution 500 mL 500 mL, IV, ONE TIME ONLY, 1 dose, On Sat03/07/18 at 1715, at 1,000 mL/hr, Administer over 30 Minutes, Routine New Bag 03/07/2018 5:25 PM JUNIOR PROJECT MANAGER 500 mL 1000 m L/hr sodium chloride 0.9% infusion IV, at 150 mL/hr, CONTINUOUS, Starting on Sat03/07/18 at 1715, Until Sat03/09/18 at 1738, Routine Rate Change 03/09/2018 2:16 PM JUNIOR PROJECT MANAGER 20 mL/hr Rate Change 03/09/2018 12:35 PM JUNIOR PROJECT MANAGER 150 mL/hr Rate Change 03/09/2018 12:25 PM JUNIOR PROJECT MANAGER 20 mL/hr sodium chloride flush injection 10 mL 10 mL, IV, ONE TIME ONLY, 1 dose, On Sat03/07/18 at 1745, Routine Given 03/07/2018 5:45 PM JUNIOR PROJECT MANAGER 10 mL sodium chloride flush injection 3 mL 3 mL, IV, TWO TIMES DAILY, First dose on Sat03/08/18 at 0100, Until Discontinued, Routine Given 03/08/2018 9:21 PM JUNIOR PROJECT MANAGER 3 mL Given 03/08/2018 10:15 AM JUNIOR PROJECT MANAGER 3 mL Given 03/08/2018 4:19 AM JUNIOR PROJECT MANAGER 3 mL spironolactone (ALDACTONE) tablet 100 mg 100 mg, Oral, DAILY, First dose on Sat03/08/18 at 0900, Until Discontinued, Routine Given 03/09/2018 10:00 AM JUNIOR PROJECT MANAGER 100 mg Given 03/08/2018 1:11 PM JUNIOR PROJECT MANAGER 100 mg traZODone (DESYREL) tablet 100 mg 100 mg, Oral, DAILY AT BEDTIME, First dose on 03/08/18 at 0000, Until Discontinued, Routine Given 03/08/2018 9:12 PM JUNIOR PROJECT MANAGER 100 mg Given 03/08/2018 12:27 AM JUNIOR PROJECT MANAGER 100 mg documented in this encounter Active and Recently Administered Medications Times are shown in JUNIOR PROJECT MANAGER. Scheduled Medication Order 03/07/2018 03/08/2018 03/09/2018 atorvastatin [...] (Given - Provider: Harvey Rendon RN) Fish Oil-Greenfield-3 Fatty Acids 360-1,200 mg capsule 2 Capsule [...] RN) 0900 (Not Given - Provider: Sandeep Pope, CLAU - Reason: Clarify-Other (Comment) - Comment: [...] Provider: Alize Darling RN)2334 (Paused - Provider: Alzie Darling RN)2334 (Restarted - Provider: Alize Darling [...] Harvey Rendon RN)2004 (Given - Provider: Alize Darling RN) hyoscyamine (LEVSIN) sublingual tablet 0.125 mg [...] RN) documented in this encounter Care Teams Card Decorator Relationship Specialty Start Date End Date Guerrero Middleton PA-C PCP - General Physician Satellite Tv Installer 02/13/18 documented as of this encounter
--- OUTSIDE RECORDS SUMMARY | 2024-05-03 21:59 | XMS_ITS | Encounter Summary ---
Author Organization [facility] Address [address] [place] [address] Care Team Providers Care Manager Entry Name Role Phone Guerrero Middleton PA-C Primary [...] Tequila bowman Referred To Contact Emergency Medicine [facility] Emergency Dept [address] [place] [address] Referral ID Status Reason Start Date Expiration Date Visits Re quested Visits Authorized [id number] 1 1 Encounter Details Date Type Department Care Team (Late st Contact Info) Description 03/07/2018 4:50 PM LIFE SCIENCE TECHNICAL OFFICER - 03/09/2018 3:00 PM [facility] Emergency [facility] Medicine [address] [place] [address] Pernell Lind MD [address] [place] [address] Almas Ortega MD [address] [facility] [address] [address] Pernell Tapia MD [address] [place] [address] Alize Morel DO [address] [place] [address] Hyponatremia Discharge Disposition: Home or [...] Comments Blood Pressure 124/77 03/09/2018 12:14 PM LIFE SCIENCE TECHNICAL OFFICER Pulse 73 03/09/2018 12:14 PM LIFE SCIENCE TECHNICAL OFFICER Temperature 37.1 ??C (98.7 ??F) 03/09/2018 12:[address] Respiratory Rate 16 03/09/2018 12:14 PM LIFE SCIENCE TECHNICAL OFFICER Oxygen Saturation 93% 03/09/2018 12:14 PM LIFE SCIENCE TECHNICAL OFFICER Inhaled Oxygen Concentration - - Weight 86.2 kg (190 lb) 03/07/2018 10:09 PM LIFE SCIENCE TECHNICAL OFFICER Height 162.6 cm (5' 4 ) 03/07/2018 10:09 PM LIFE SCIENCE TECHNICAL OFFICER Body Mass Index 32.61 03/07/2018 10:09 PM LIFE SCIENCE TECHNICAL OFFICER documented in this encounter Discharge Summaries * Alize Morel DO - 03/09/2018 12:54 PM CST Images from the original note were not included. [facility] Discharge Summary Linda Doss 42 y.o. female 1975 CSN: [id number] Date of Admission: 03/07/2018 Date of Discharge: [...] told me that she has seen a digital circuit designer at some point and was told that [...] 3 times daily. Refills: 0 Generic drug: xnmfjwc-iawfer-twucqstv DR fenofibrate 160 mg Tablet Commonly known [...] by mouth 2 times daily. Refills: 0 [id number]-CVWZ OIL ORAL Take by mouth 4 times [...] Your Medications These medications were sent to [place] [address] [facility] [address] Hours: Saturday-Saturday: 8 a.m. - 8 p.m., [...] MORE THAN [address] Moreno Gates SCIENCE TECHNICAL OFFICER documented in this encounter Discharge Instructions * Discharge Instructions* Alize Morel DO - 03/09/2018 12:59 PM LIFE SCIENCE TECHNICAL OFFICER Your discharging physician is Alize Morel DO and may be reached at [phone] for any questions or concerns until you [...] is not relieved by nitroglycerin. Smoking Exposure: [facility] encourages all patients to decrease risks associated with smoking and second hand smoke exposure. If you smoke you are advised to quit. Ask your health care provider for advice if you need assistance to stop smoking. Avoid second-hand smoke exposure and do not let people smoke in your home. Please call [phone], our pulmonary rehabilitation department, to learn more about options to reduce your risks. ACTIVITY Your activity level is: no restrictions, increase activity as tolerated and no smoking. You may return to work/school na. DIET Your diet is: Very Low fat, diabetic WOUND CARE For your wound/incision: na. SCIENCE TECHNICAL OFFICER documented in this encounter Medications at [...] mg by mouth 2 times daily. 04/10/2018 hhegogz-uwoezd-gnmvmabx DR (CREON) 60-12-38 capsule Take by mouth [...] by mouth 2 times daily . 09/26/2023 [id number]-JTLB OIL ORAL Take by mouth 4 times daily. 04/10/2018 insulin aspart protamine-aspart (NovoLOG MIX 70-30) 100 unit/mL (70-30) pen syringe Inject by subcutaneous injection 8 units breakfast 14 units lunch 18 units dinner Also with sliding scale. 06/02/2018 levothyroxine 200 mcg tablet Take 1 Tablet by mouth daily external grinder tender. 30 Tablet 3 12/11/2017 04/10/2018 Yaige9-JtyF0-U61-E-FA-F bossman Oil [phone] al-qo-tli-mcg Capsule Take 2 Caplets by mouth 2 [...] daily as needed for Anxiety . 06/18/2020 yqwttjp-zfidpz-vnwawipx (CRERUDI 12 60-12-38 capsule Take by mouth [...] Rockwell NP - 03/09/2018 5:41 AM CST [facility] Call Called for: RN reporting [...] system for vHospitalist calls. Submit an eTicket SCIENCE TECHNICAL OFFICER * Alize Morel, - 03/08/2018 1:15 PM CST [facility] Progress Note Admit Date: 03/07/2018 [...] discussion of lab and test results. Pager: [phone] Alize Morel DO SCIENCE TECHNICAL OFFICER documented in this encounter H&P Notes * Pernell Tapia MD - 03/07/2018 11:12 PM CST [facility] Admission H & P Patient [...] told me that she has seen a digital circuit designer at some point and was told that [...] 1 mg by mouth 2 times daily. [id number]-DUD-EXIH OIL ORAL Yes No Sig: Take by mouth 4 times daily. tuvagbv-zjaown-cqsmcmfm DR (CREON) 60-12-38 capsule Yes No Sig: [...] Sig: Take 1 Tab by mouth daily external grinder tender. TAKE WITHOUT FOOD metFORMIN (GLUCOPHAGE) 500 mg [...] 99 mg/dL COMMENT, GLU POC Notified RN/MD MANAGER PROTEIN NAME ZURI MCCALL URINALYSIS WITH REFLEX MICROSCOPIC [...] questions to their satisfaction. Pernell Tapia MD SCIENCE TECHNICAL OFFICER documented in this encounter Procedure Notes * Ceasar Vega MD - 03/08/2018 12:03 PM CSTAssociated Order(s): UPPER ENDOSCOPY REPORT [facility] Endoscopy Patient Name: Linda Doss Procedure [...] of Addenda: [address]; [place] [address] SCIENCE TECHNICAL OFFICER documented in this encounter Consult Notes * Ceasar Vega MD - 03/08/2018 9:36 AM CSTAssociated Order(s): IP CONSULT TO GI Inpatient Consultation Note [facility] Digestive Diseases Consultation Note Patient: Linda Doss / 42 y.o. / female : 1975 Date: 03/08/2018 [facility]: [id number] Referring Physician:No ref. provider found PCP: No [...] the hyperlipoidemia. She was cared for in [facility] subsequently at [facility]. She had stuttering symptoms throughout the summer. [...] have no access to care everywhere at [facility] [employer]. Current exacerbation started several days ago. She [...] mg by mouth 2 times daily. ??? ybuygfz-pwwtty-tljdnkan DR TING) 60-12-38 capsule Take by mouth [...] by mouth 2 times daily . ??? [id number]-GDO-LUX-VRHJ OIL ORAL Take by mouth 4 times daily. ??? traZODone (DESYREL) 100 mg tablet Take 100 mg by mouth. ??? insulin aspart protamine-aspart (NovoLOG MIX 70-30) 100 unit/mL (70-30) pen syringe Inject by subcutaneous injection 12 units breakfast 14 units lunch 20 units dinner Also with sliding scale. ??? levothyroxine (SYNTHROID) 137 mcg Oral tablet Take 1 Tab by mouth daily external grinder tender. TAKE WITHOUT FOOD (Patient taking differently: Take 175 mcg by mouth daily external grinder tender TAKE WITHOUT FOOD. ) 30 Tab 0 [...] 1 - [facility] Impression/Plan: 1) Hypertriglyceridemia history of associated pancreatitis. [...] gastric emptying has been raised previously at [facility] per patient report. CT from last night does not show any gastric distention. We will attempt to obtain old records. Thank you very much for this consultation. Ceasar Vega MD [facility] Office: [phone] Pager: [phone] CC: No ref. provider found , No primary care provider on file. SCIENCE TECHNICAL OFFICER documented in this encounter OR Notes * Rebecca-OP - Awilda Pagan, RN - 03/08/2018 10:45 AM CST Routine Pre-Anesthesia Protocol for GI Lab Procedures ?? [facility] ? ORDERS ARE ENTERED ???PER PROTOCOL? Enter the protocol in the patient???s electronic health record using [place] [facility] [employer]' Networkrase: .anestprotocolgilab ?? NURSING ORDERS: Monitoring: ?? Obtain [...] appropriate, may confirm POC with: Nursing Only [id number] (this lab can be obtained at no [...] MEDICATION ORDERS - entered by the Pharmacist health education director ? Meter Glucose less than 70, patient [...] Committee, Nursing Leadership, Pharmacy &??Therapeutics Committee ?Date:05/2017 SCIENCE TECHNICAL OFFICER documented in this encounter ED Notes * Jeff Enciso RN - 03/07/2018 6:30 PM CST Pt requesting more pain medication, will check w/ MD Lind. Otherwise, she continues to rest in stretcher while awaiting CT results. Will continue to monitor. SCIENCE TECHNICAL OFFICER * Jeff Enciso RN - 03/07/2018 6:00 PM CST Pt continues to rest in stretcher while awaiting CT scan. Reports significant relief in both nauseaand pain. Denies complaints and NAD noted. Visitor at bedside, call button within reach. Will continue to monitor. SCIENCE TECHNICAL OFFICER * Jeff Enciso RN - 03/07/2018 5:25 PM CST Pt medicated per MAR. Patient/family has been informed about benefits and any potential clinically significant side effects or other concerns regarding the administration of the drug they have just been given. NS infusing wide open. Awaiting CT scan. Will continue to monitor. SCIENCE TECHNICAL OFFICER * Jeff Enciso RN - 03/07/2018 4:57 [...] plan of care. Will continue to monitor. SCIENCE TECHNICAL OFFICER * Ambika Llanes RN - 03/07/2018 2:10 PM CST Emergency Department Adult Female Abdominal Pain Protocol [facility] ORDERS ARE ENTERED ???PER PROTOCOL?? Nursing Orders: o Insert peripheral IV (excessive vomiting or diarrhea) Laboratory Orders: o CBC with diff ([id number]) o CMP (LAB17) o If female of childbearing age: POC Urine HCG (POC7) or HCG Qualitative urine (ELO452) if sending to lab o Urinalysis with Reflex Microscopy (DML085) o Serum HCG (if knowingly ) (XZK337) o Obtain serum lipase (LAB99) if upper abdominal pain o Draw and send extra tubes to lab (ED hold) ([id number]) Diagnostic Test Orders: o If RUQ pain, [...] by: Margarita Obando RN, BSN, YEFRI Nurse Maitre D Approved by: Medical Executive Committee, Nursing Leadershp, Pharmacy & Therapeutics Date:03/2017 SCIENCE TECHNICAL OFFICER * Puja Garcia RN - 03/07/2018 1:43 PM CST We promote safety at our facility and do not allow any type of weapon in the building. Do you have a weapon or something that could be used as a weapon on you today? denied possession of any weapons or firearms at this time. SCIENCE TECHNICAL OFFICER * Pernell Lind MD - 03/07/2018 1:36 [...] blood in stool. PCP: Dr. Yeni Bailey [facility] Cardiology: Dr. Mayer History provided by: [...] 1 mg by mouth 2 times daily. azqnkcv-oebcct-ylprkpqy DR (CREON) 60-12-38 capsule Take by mouth [...] mg by mouth 2 times daily . [id number]-PTQ-EMH-KVCE OIL ORAL Take by mouth 4 times daily. traZODone (DESYREL) 100 mg tablet Take 100 mg by mouth. insulin aspart protamine-aspart (NovoLOG MIX 70-30) 100 unit/mL (70-30) pen syringe Inject by subcutaneous injection 12 units breakfast 14 units lunch 20 units dinner Also with sliding scale. levothyroxine (SYNTHROID) 137 mcg Oral tablet Take 1 Tab by mouth daily external grinder tender. TAKE WITHOUTFOOD Qty: 30 Tab, Refills: 0 [...] 1 - [facility] PROCEDURES Procedures MEDICAL DECISION MAKING AND PLAN [...] 1 mg by mouth 2 times daily. zqqwtkx-akszny-rfclzjqk DR (CREON) 60-12-38 capsule Take by mouth [...] mg by mouth 2 times daily . [id number]-XHGY OIL ORAL Take by mouth 4 times daily. traZODone (DESYREL) 100 mg tablet Take 100 mg by mouth. insulin aspart protamine-aspart (NovoLOG MIX 70-30) 100 unit/mL (70-30) pen syringe Inject by subcutaneous injection 12 units breakfast 14 units lunch 20 units dinner Also with sliding scale. levothyroxine (SYNTHROID) 137 mcg Oral tablet Take 1 Tab by mouth daily external grinder tender. TAKE WITHOUTFOOD Qty: 30 Tab, Refills: 0 [...] and medical decision making performed by me. SCIENCE TECHNICAL OFFICER documented in this encounter Miscellaneous Notes [...] dietary education. Ambulated off ujnit with family. SCIENCE TECHNICAL OFFICER * Care Plan - Alize Darling RN [...] Tolerating NS @ 75.Biopsy results still pending. SCIENCE TECHNICAL OFFICER * Care Plan - Harvey Rendon RN [...] when asked for comfort then patientc/o pain. SCIENCE TECHNICAL OFFICER * Care Plan - Alize Darling RN - 03/08/2018 7:51 AM CST Pt remains AOx4, sleeping between care. Using morphine to manage pain, and zofran and compazine to manage nausea.Pt up independently to BR, voiding in hat. VSS. SCIENCE TECHNICAL OFFICER * Care Plan - Alize Darling RN - 03/08/2018 1:01 AM CST Pt admitted to room [facility], oriented to bathroom, call light, phone, and television. Pt complaints ofpain and nausea, given morphine and compazine when available. Undress and assess, no skin breakdownnoted; one small scar on back R shoulder. Pt settled, all questions answered. Undress and Assess performed by: CLAU Herrmanne commerce analyst or upon transfer to:[facility] ~~~~~~~~~~~~~~~~~~~~~~~~~~~~ Is the patient a paraplegic/quadriplegic? [...] removed from patient Yes Disposition of belongings/valuables: SCIENCE TECHNICAL OFFICER documented in this encounter Plan of Treatment Upcoming Encounters Date Type Department Care Team (Late st Contact Info) Description 09/14/2024 3:00 PM CDT Office Visit [facility] [address] [place] [address] Marlys Mayer MD [address] [place] [address] documented as of this encounter Procedures Procedure Name Priority Date/Time Associated Diagnosis Comments POC GLUCOSE Routine 03/09/2018 1:50 PM LIFE SCIENCE TECHNICAL OFFICER POC GLUCOSE Routine 03/09/2018 10:18 AM LIFE SCIENCE TECHNICAL OFFICER CBC WITH DIFFERENTIAL Routine 03/09/2018 5:39 AM LIFE SCIENCE TECHNICAL OFFICER TRIGLYCERIDE Routine 03/09/2018 5:39 AM LIFE SCIENCE TECHNICAL OFFICER LIPASE Routine 03/09/2018 5:39 AM LIFE SCIENCE TECHNICAL OFFICER COMPREHENSIVE METABOLIC PANEL Routine 5:39 AM LIFE SCIENCE TECHNICAL OFFICER POC GLUCOSE Routine 03/09/2018 5:27 AM LIFE SCIENCE TECHNICAL OFFICER POC GLUCOSE Routine 03/09/2018 12:33 AM LIFE SCIENCE TECHNICAL OFFICER POC GLUCOSE Routine 03/08/2018 9:17 PM LIFE SCIENCE TECHNICAL OFFICER POC GLUCOSE Routine 03/08/2018 6:22 PM LIFE SCIENCE TECHNICAL OFFICER POC GLUCOSE Routine 03/08/2018 2:26 PM LIFE SCIENCE TECHNICAL OFFICER TRIGLYCERIDE Stat 03/08/2018 1:02 PM LIFE SCIENCE TECHNICAL OFFICER UPPER ENDOSCOPY REPORT 8 12:04 PM LIFE SCIENCE TECHNICAL OFFICER PATHOLOGY Pathology 03/08/2018 11:55 AM LIFE SCIENCE TECHNICAL OFFICER ESOPHAGOGASTRODUODENOSCOPY 03/08 11:37 AM LIFE SCIENCE TECHNICAL OFFICER POC GLUCOSE Routine 03/08/2018 10:54 AM LIFE SCIENCE TECHNICAL OFFICER POC GLUCOSE Routine 03/08/2018 10:13 AM LIFE SCIENCE TECHNICAL OFFICER POC GLUCOSE Routine 03/08/2018 8:01 AM LIFE SCIENCE TECHNICAL OFFICER CBC WITH DIFFERENTIAL Routine 03/08/2018 5:15 AM LIFE SCIENCE TECHNICAL OFFICER LIPASE Routine 03/08/2018 5:15 AM LIFE SCIENCE TECHNICAL OFFICER HEMOGLOBIN A1C Routine 03/08/2018 5:15 AM LIFE SCIENCE TECHNICAL OFFICER LIPID PANEL Routine 03/08/2018 5:15 AM LIFE SCIENCE TECHNICAL OFFICER BASIC METABOLIC PANEL Routine 03/08/2018 5:15 AM LIFE SCIENCE TECHNICAL OFFICER POC GLUCOSE Routine 03/08/2018 3:23 AM LIFE SCIENCE TECHNICAL OFFICER URINALYSIS W/REFLEX MICROSCOPIC Stat 03/07/2018 11:04 PM LIFE SCIENCE TECHNICAL OFFICER POC GLUCOSE Routine 03/07/2018 10:58 PM LIFE SCIENCE TECHNICAL OFFICER CT ABDOMEN PELVIS W CONTRAST Stat 12/2017 6:24 PM LIFE SCIENCE TECHNICAL OFFICER CBC WITH DIFFERENTIAL Stat 03/07/2018 2:15 PM LIFE SCIENCE TECHNICAL OFFICER LIPASE Stat 03/07/2018 2:15 PM LIFE SCIENCE TECHNICAL OFFICER COMPREHENSIVE METABOLIC PANEL Stat 2:15 PM LIFE SCIENCE TECHNICAL OFFICER documented in this encounter Results * (ABNORMAL) POC GLUCOSE (03/09/2018 1:50 PM LIFE SCIENCE TECHNICAL OFFICER) GLUCOSE POC 123(H) 74 - 99 mg/dL 03/09/2018 2:07 PM LIFE SCIENCE TECHNICAL OFFICER [facility] COMMENT, GLU POC Notified RN/MD 03/09/2018 2:07 PM LIFE SCIENCE TECHNICAL OFFICER [facility] MANAGER PROTEIN NAME POC STEPHON MIRELES 03/09/2018 2:07 PM LIFE SCIENCE TECHNICAL OFFICER [facility] Whole blood specimen (specimen) 03/09/2018 1:50 PM LIFE SCIENCE TECHNICAL OFFICER 03/09/2018 2:07 PM LIFE SCIENCE TECHNICAL OFFICER Alize Morel DO POINT OF CARE TESTIN G [facility] [employer] [facility] CLIA# [id number] [address] [place] [address] * POC GLUCOSE (03/09/2018 10:18 AM LIFE SCIENCE TECHNICAL OFFICER) GLUCOSE POC 85 74 - 99 mg/dL 03/09/2018 10:42 AM LIFE SCIENCE TECHNICAL OFFICER [facility] MANAGER PROTEIN NAME SANDEEP FIORE 03/09/2018 10:42 AM [facility] [employer] [facility]ATORY SERVICES [facility] Whole blood specimen (specimen) 03/09/2018 10:18 AM LIFE SCIENCE TECHNICAL OFFICER 03/09/2018 10:42 AM LIFE SCIENCE TECHNICAL OFFICER Alize Morel DO POINT OF CARE TESTIN G [facility] [employer] [facility] CLIA# [id number] [address] [place] [address] * LIPASE (03/09/2018 5:39 AM LIFE SCIENCE TECHNICAL OFFICER) Pathologist [facility] LIPASE 16 13 - 60 U/L 03/09/2018 7:10 AM [facility] [employer] [facility]ORY SERVICES [facility] Blood 03/09/2018 5:39 AM LIFE SCIENCE TECHNICAL OFFICER 03/09/2018 6:24 AM LIFE SCIENCE TECHNICAL OFFICER Alize Morel DO CHEMISTRY ORDERABLES [facility] [employer] [facility] CLIA# [id number] [address] [place] [address] * CBC WITH DIFFERENTIAL (03/09/2018 5:39 AM LIFE SCIENCE TECHNICAL OFFICER) WBC 5.3 4.0 - 9.8 K/uL 03/09/2018 6:44 AM [facility] RBC 4.06 3.90 - 4.90 M/uL 03/09/2018 6:44 AM LIFE SCIENCE TECHNICAL OFFICER [employer] [facility] HEMOGLOBIN 12.1 11.8 - 14.8 g/dL 03/09/2018 6:44 AM [facility] - [facility] HEMATOCRIT 37.6 35.5 - 44.0 % 03/09/2018 6:44 AM LIFE SCIENCE TECHNICAL OFFICER [employer] [facility] - [facility] MCV 92.6 82.0 - 99.0 fL 03/09/2018 6:44 AM LIFE SCIENCE TECHNICAL OFFICER [employer] [facility] - [facility] MCH 29.8 27.2 - 32.6 pg 03/09/2018 6:44 AM [facility] MCHC 32.2 31.5 - 35.5 g/dL 03/09/2018 6:44 AM LIFE SCIENCE TECHNICAL OFFICER [employer] [facility] RDW 13.7 11.5 - 14.5 % 03/09/2018 6:44 AM LIFE SCIENCE TECHNICAL OFFICER [employer] [facility] RDW-STDEV 46.6 37.1 - 48.7 fL 03/09/2018 6:44 AM [facility] PLATELETS 242 140 - 350 K/uL 03/09/2018 6:44 AM LIFE SCIENCE TECHNICAL OFFICER [employer] [facility] MPV 9.3 9.3 - 12.4 fL 03/09/2018 6:44 AM LIFE SCIENCE TECHNICAL OFFICER [employer] [facility] NEUTROPHILS 49 % 03/09/2018 6:44 AM [facility] LYMPHOCYTES 43 % 03/09/2018 6:44 AM [facility] MONOCYTES 6 % 03/09/2018 6:44 AM [facility] EOSINOPHILS 1 % 03/09/2018 6:44 AM [facility] BASOPHILS 1 % 03/09/2018 6:44 AM [facility] IMMATURE GRANULOCYTES 0 % 03/09/2018 6:44 AM [facility] NEUTROPHIL ABSOLUTE 2.59 1.90 - 7.00 K/uL 03/09/2018 6:44 AM [facility] LYMPHOCYTE ABSOLUTE 2.23 0.70 - 4.50 K/uL 03/09/2018 6:44 AM [facility] MONOCYTE ABSOLUTE 0.31 0.10 - 1.30 K/uL 03/09/2018 6:44 AM [facility] EOSINOPHIL ABSOLUTE 0.07 0.00 - 0.70 K/uL 03/09/2018 6:44 AM [facility] BASOPHILS ABSOLUTE 0.03 0.00 - 0.20 K/uL 03/09/2018 6:44 AM [facility] IMMATURE GRANULOCYTES ABSOLUTE 0.02 0.00 - 0.03 K/uL 03/09/2018 6:44 AM [facility] Blood 03/09/2018 5:39 AM LIFE SCIENCE TECHNICAL OFFICER 03/09/2018 6:24 AM LIFE SCIENCE TECHNICAL OFFICER Ceasar Vega MD HEMATOLOGY ORDERABLE S Performing Organization Address [facility] Co de Phone Number [facility] [employer] [facility]# [id number] [address] [place] [address] * (ABNORMAL) TRIGLYCERIDE (03/09/2018 5:39 AM LIFE SCIENCE TECHNICAL OFFICER) TRIGLYCERIDE 2,339(H) <150 mg/dL 03/09/2018 7:22 AM LIFE SCIENCE TECHNICAL OFFICER [facility] Blood 03/09/2018 5:39 AM LIFE SCIENCE TECHNICAL OFFICER 03/09/2018 6:24 AM LIFE SCIENCE TECHNICAL OFFICER Narrative [facility] - 03/09/2018 7:22 AM LIFE SCIENCE TECHNICAL OFFICER TRIGLYCERIDES ? mg/dL Normal ?< 150 Borderline High ?150 - 199 High ? 200 - 499 Very High ? >= 500 Based on AHA/NCEP Guidelines. Alize Morel DO CHEMISTRY ORDERABLES Performing Organization Address [facility] Co de Phone Number [facility] [employer] [facility]# [id number] [address] [place] [address] * (ABNORMAL) COMPREHENSIVE METABOLIC PANEL (03/09/2018 5:39 AM LIFE SCIENCE TECHNICAL OFFICER) Pathologist [facility] SODIUM 137 136 - 145 mmol/L 03/09/2018 7:10 AM LIFE SCIENCE TECHNICAL OFFICER [facility] - [facility] POTASSIUM 3.8 3.5 - 5.0 mmol/L 03/09/2018 7:10 AM LIFE SCIENCE TECHNICAL OFFICER [facility] - . [facility] CHLORIDE 101 98 - 107 mmol/L 03/09/2018 7:10 AM LIFE SCIENCE TECHNICAL OFFICER [employer] [facility] - [facility] CO2 22 22 - 29 mmol/L 03/09/2018 7:10 AM LIFE SCIENCE TECHNICAL OFFICER [employer] [facility] - [facility] CALCIUM 8.6 8.6 - 10.2 mg/dL 03/09/2018 7:10 AM [facility] BUN 5(L) 6 - 20 mg/dL 03/09/2018 7:10 AM [facility] [employer] [facility] CREATININE 0.56 0.51 - 0.95 mg/dL 03/09/2018 7:10 AM [facility] [employer] [facility] GLUCOSE 85 74 - 99 mg/dL 03/09/2018 7:10 AM [facility] [employer] [facility] TOTAL PROTEIN 5.9(L) 6.7 - 8.6 g/dL 03/09/2018 7:10 AM LIFE SCIENCE TECHNICAL OFFICER [facility] [facility] ALBUMIN 3.9 3.5 - 5.2 g/dL 03/09/2018 7:10 AM LIFE SCIENCE TECHNICAL OFFICER [facility] BILIRUBIN TOTAL 0.3 0.3 - 1.2 mg/dL 03/09/2018 7:10 AM [facility] [employer] [facility] ALKALINE PHOSPHATASE 49 35 - 104 U/L 03/09/2018 7:10 AM LIFE SCIENCE TECHNICAL OFFICER [facility] AST 14 <33 U/L 03/09/2018 7:10 AM LIFE SCIENCE TECHNICAL OFFICER [facility] ALT 9 <34 U/L 03/09/2018 7:10 AM LIFE SCIENCE TECHNICAL OFFICER [facility] [facility] GFR >60 >=60 mL/min/1.7 3 sq meter 03/09/2018 7:10 AM [facility] - [facility] Comment: eGFR [...] mL/min/1.7 3 sq meter 03/09/2018 7:10 AM [facility] ANION GAP 14 8 - 16 mmol/L 03/09/2018 7:10 AM LIFE SCIENCE TECHNICAL OFFICER [employer] [facility] LABORATORY SERVICES [facility] Blood 03/09/2018 5:39 AM LIFE SCIENCE TECHNICAL OFFICER 03/09/2018 6:24 AM LIFE SCIENCE TECHNICAL OFFICER Narrative [facility] - 03/09/2018 7:10 AM LIFE SCIENCE TECHNICAL OFFICER Samples containing indocyanine green cause interferences on Total and/or Direct Bilirubin and must not be measured. Alize Morel CHEMISTRY ORDERABLES [facility]# [id number] [address] [place] [address] * POC GLUCOSE (03/09/2018 5:27 AM LIFE SCIENCE TECHNICAL OFFICER) GLUCOSE POC 75 74 - 99 mg/dL 03/09/2018 5:46 AM LIFE SCIENCE TECHNICAL OFFICER [facility] MANAGER PROTEIN NAME ALIZE CANTU 03/09/2018 5:46 AM LIFE SCIENCE TECHNICAL OFFICER [facility] Whole blood specimen (specimen) 03/09/2018 5:27 AM LIFE SCIENCE TECHNICAL OFFICER 03/09/2018 5:46 AM LIFE SCIENCE TECHNICAL OFFICER Alize Morel POINT OF CARE TESTIN G Performing Organization Address City/[facility]/ZIP Co de Phone Number [facility] [employer] [facility] CLCA# [id number] [address] [place] [address] * POC GLUCOSE (03/09/2018 12:33 AM LIFE SCIENCE TECHNICAL OFFICER) GLUCOSE POC 86 74 - 99 mg/dL 03/09/2018 12:48 AM LIFE SCIENCE TECHNICAL OFFICER [facility] MANAGER PROTEIN NAME ALIZE CANTU 03/09/2018 12:48 AM LIFE SCIENCE TECHNICAL OFFICER [facility] Whole blood specimen (specimen) 03/09/2018 12:33 AM LIFE SCIENCE TECHNICAL OFFICER 03/09/2018 12:48 AM LIFE SCIENCE TECHNICAL OFFICER Alize Morel DO POINT OF CARE TESTIN G [facility] CLIA# [id number] [address] [place] [address] * POC GLUCOSE (03/08/2018 9:17 PM LIFE SCIENCE TECHNICAL OFFICER) GLUCOSE POC 92 74 - 99 mg/dL 03/08/2018 9:35 PM LIFE SCIENCE TECHNICAL OFFICER [facility] MANAGER PROTEIN NAME POC ALIZE DARLING 03/08/2018 9:35 PM LIFE SCIENCE TECHNICAL OFFICER [facility] Whole blood specimen (specimen) 03/08/2018 9:17 PM LIFE SCIENCE TECHNICAL OFFICER 03/08/2018 9:35 PM LIFE SCIENCE TECHNICAL OFFICER Alize Morel DO POINT OF CARE TESTIN Maggie Performing Organization Address City/[facility]/ZIP Co de Phone Number [facility] [id number] [address] [facility] [place] [address] * POC GLUCOSE (03/08/2018 6:22 PM LIFE SCIENCE TECHNICAL OFFICER) GLUCOSE POC 76 74 - 99 mg/dL 03/08/2018 6:35 PM LIFE SCIENCE TECHNICAL OFFICER [facility] MANAGER PROTEIN NAME POC HARVEY RENDON (ELI) 03/08/2018 6:35 PM LIFE SCIENCE TECHNICAL OFFICER [facility] Whole blood specimen (specimen) 03/08/2018 6:22 PM LIFE SCIENCE TECHNICAL OFFICER 03/08/2018 6:35 PM LIFE SCIENCE TECHNICAL OFFICER Alize Morel DO POINT OF CARE FLY Serrano Performing Organization Address City/[facility]/ZIP Co de Phone Number [facility] CLIA# [id number] [address] [place] [address] * POC GLUCOSE (03/08/2018 2:26 PM LIFE SCIENCE TECHNICAL OFFICER) GLUCOSE POC 92 74 - 99 mg/dL 03/08/2018 2:42 PM LIFE SCIENCE TECHNICAL OFFICER [facility] MANAGER PROTEIN NAME POC HARVEY RENDON (ELI) 03/08/2018 2:42 PM LIFE SCIENCE TECHNICAL OFFICER [facility] Whole blood specimen (specimen) 03/08/2018 2:26 PM LIFE SCIENCE TECHNICAL OFFICER 03/08/2018 2:42 PM LIFE SCIENCE TECHNICAL OFFICER Alize Morel DO POINT OF CARE TESTIN G Performing Organization Address [facility] Co de Phone Number [facility]# [id number] [address] [place] [address] * (ABNORMAL) TRIGLYCERIDE (03/08/2018 1:02 PM LIFE SCIENCE TECHNICAL OFFICER) TRIGLYCERIDE 2,887(H) <150 mg/dL 03/08/2018 2:32 PM LIFE SCIENCE TECHNICAL OFFICER [facility] Blood BLOOD SPECIMEN / Unknown Venipuncture / Unknown 03/08/2018 1:02 PM LIFE SCIENCE TECHNICAL OFFICER 03/08/2018 1:47 PM LIFE SCIENCE TECHNICAL OFFICER Narrative [facility] - 03/08/2018 2:32 PM LIFE SCIENCE TECHNICAL OFFICER TRIGLYCERIDES ? mg/dL Normal ?< 150 Borderline High ?150 - 199 High ? 200 - 499 Very High ? >= 500 Based on AHA/NCEP Guidelines. Ceasar Vega MD CHEMISTRY ORDERABLES Performing Organization Address [facility] Co de Phone Number [facility]# [id number] [address] [place] [address] * UPPER ENDOSCOPY REPORT (03/08/2018 12:04 PM LIFE SCIENCE TECHNICAL OFFICER) Narrative Procedure Note Ceasar Vega MD - 03/08/2018 12:03 PM CST [facility] Endoscopy Patient Name: Linda Doss Procedure [...] of Addenda: [address]; [place] [address] Ceasar Vega MD GI PROCEDURE ORDERAB LES * PATHOLOGY (03/08/2018 11:55 AM LIFE SCIENCE TECHNICAL OFFICER) CASE REPORT Surgical Pathology Report ? Case: [id number] ? Authorizing Provider: ??Ceasar Vega MD ?Collected: ? 03/08/2018 11:55 AM ? Ordering Location: ? [facility] [place] ??Received: ?03/10/2018 09:09 AM ? Pathologist: ? Jam Montgomery DO ? Specimen: ?Stomach, bx ? 03/11/2018 5:47 PM [facility] FINAL DIAGNOSIS Stomach, endoscopic biopsy: - Mild chronic gastritis. 03/11/2018 5:47 PM [facility] IMEN DESCRIPTION Stomach biopsy. 03/11/2018 5:47 PM [facility] OPERATIVE PROCEDURE Esophagogastroduodeno scopy. 03/11/2018 5:47 PM [facility] CLINICAL DIAGNOSIS Rule out H. pylori infection. 03/11/2018 5:47 PM [facility] GROSS DESCRIPTION The specimen is received in a single container labeled Linda Doss, stomach biopsy and consists of seven pieces of white tissue that are 0.1 to 0.4 cm in greatest dimension. The entire specimen is submitted in cassette A1. [facility]/lkp 03/11/2018 5:47 PM [facility] MICROSCOPIC DESCRIPTION The slides are received labeled [id number] and Linda Doss. Sections of the stomach [...] contaminant, possible esophageal mucosa. 03/11/2018 5:47 PM LIFE SCIENCE TECHNICAL OFFICER [facility] COMMENT Special stain and/or immunohistochemical results are interpreted with controls that demonstrate appropriate staining reactions. Note on use of immunocytochemistry reagents: This test was developed and its performance characteristic determined by [facility], Department of Laboratory Medicine. It has [...] WF, WB and WH are performed by [address], [address]. All other case types are performed by [address], [address]. 03/11/2018 5:47 PM LIFE SCIENCE TECHNICAL OFFICER [facility] Tissue ENTIRE STOMACH / Unknown Collection / Unknown 03/08/2018 11:55 AM LIFE SCIENCE TECHNICAL OFFICER 03/10/2018 9:09 AM LIFE SCIENCE TECHNICAL OFFICER Comment:Gastritis, r/o h.pyl miguel Ceasar Vega MD PATHOLOGY/CYTOLOGY O RDERABLES [facility] CLIA# [id number] [address] [place] [address] * (ABNORMAL) POC GLUCOSE (03/08/2018 10:54 AM LIFE SCIENCE TECHNICAL OFFICER) GLUCOSE POC 114(H) 74 - 99 mg/dL 03/08/2018 11:07 AM LIFE SCIENCE TECHNICAL OFFICER [facility] MANAGER PROTEIN NAME POC AWILDA PAGAN 03/08/2018 11:07 AM [facility] Whole blood specimen (specimen) 03/08/2018 10:54 AM LIFE SCIENCE TECHNICAL OFFICER 03/08/2018 11:07 AM LIFE SCIENCE TECHNICAL OFFICER Alize Morel DO POINT OF CARE TESTIN Maggie Performing Organization Address [facility]/ZIP Co de Phone Number [facility] CLIA# [id number] [address] [place] [address] * (ABNORMAL) POC GLUCOSE (03/08/2018 10:13 AM LIFE SCIENCE TECHNICAL OFFICER) GLUCOSE POC 114(H) 74 - 99 mg/dL 03/08/2018 10:28 AM LIFE SCIENCE TECHNICAL OFFICER [facility] COMMENT, GLU POC Notified RN/MD 03/08/2018 10:28 AM LIFE SCIENCE TECHNICAL OFFICER [facility] MANAGER PROTEIN NAME POC JEFF BLOOD 03/08/2018 10:28 AM LIFE SCIENCE TECHNICAL OFFICER [facility] Whole blood specimen (specimen) 03/08/2018 10:13 AM LIFE SCIENCE TECHNICAL OFFICER 03/08/2018 10:28 AM LIFE SCIENCE TECHNICAL OFFICER Alize Morel DO POINT OF CARE TESTJERONIMO Serrano Performing Organization Address [facility]/ZIP Co de Phone Number [facility] [employer] [facility] CLIA# [id number] [address] [place] [address] * (ABNORMAL) POC GLUCOSE (03/08/2018 8:01 AM LIFE SCIENCE TECHNICAL OFFICER) GLUCOSE POC 129(H) 74 - 99 mg/dL 03/08/2018 8:26 AM LIFE SCIENCE TECHNICAL OFFICER [facility] MANAGER PROTEIN NAME POC HARVEY RENDON (ELI) 03/08/2018 8:26 AM LIFE SCIENCE TECHNICAL OFFICER [facility] Whole blood specimen (specimen) 03/08/2018 8:01 AM LIFE SCIENCE TECHNICAL OFFICER 03/08/2018 8:25 AM LIFE SCIENCE TECHNICAL OFFICER Alize Morel DO POINT OF CARE TESTIN Maggie Performing Organization Address City/[facility]/ZIP Co de Phone Number [facility] CLIA# [id number] [address] [place] [address] * (ABNORMAL) HEMOGLOBIN A1C (03/08/2018 5:15 AM LIFE SCIENCE TECHNICAL OFFICER) HEMOGLOBIN A1C 8.7(H) <5.7 % 03/08/2018 10:47 AM [facility] EST. AVG GLUCOSE, A1C 203 mg/dL 03/08/2018 10:47 AM [facility] Blood Venipuncture / Unknown 03/08/2018 5:15 AM LIFE SCIENCE TECHNICAL OFFICER 03/08/2018 5:59 AM LIFE SCIENCE TECHNICAL OFFICER Narrative [facility] - 03/08/2018 10:47 AM LIFE SCIENCE TECHNICAL OFFICER HGB A1C INTERPRETATION NORMAL: ? <5.7% PRE-DIABETES: 5.7 - 6.4% DIABETES: ? 6.5% OR GREATER Alize Morel DO CHEMISTRY ORDERABLES Performing Organization Address City/[facility]/ZIP Co de Phone Number [facility] CLIA# [id number] [address] [facility] [place] [address] * LIPASE (03/08/2018 5:15 AM LIFE SCIENCE TECHNICAL OFFICER) Pathologist [facility] LIPASE 16 13 - 60 U/L 03/08/2018 8:15 AM [facility] Blood Venipuncture / Unknown 03/08/2018 5:15 AM LIFE SCIENCE TECHNICAL OFFICER 03/08/2018 5:59 AM LIFE SCIENCE TECHNICAL OFFICER Alize Morel DO CHEMISTRY ORDERABLES Performing Organization Address [facility] Co de Phone Number [facility] CLIA# [id number] [address] [facility] [place] [place] [address] * (ABNORMAL) BASIC METABOLIC PANEL (03/08/2018 5:15 AM LIFE SCIENCE TECHNICAL OFFICER) [facility] SODIUM 135(L) 136 - 145 mmol/L 03/08/2018 6:50 AM [facility] POTASSIUM 4.0 3.5 - 5.0 mmol/L 03/08/2018 6:50 AM [facility] Comment: Slightly hemolyzed. Result may be falsely elevated. CHLORIDE 96(L) 98 - 107 mmol/L 03/08/2018 6:50 AM [facility] [email or web address] [facility] CO2 22 22 - 29 mmol/L 03/08/2018 6:50 AM [facility] [email or web address] [facility] CALCIUM 8.4(L) 8.6 - 10.2 mg/dL 03/08/2018 6:50 AM [facility] [email or web address] [facility] BUN 9 6 - 20 mg/dL 03/08/2018 6:50 AM [facility] [email or web address] [facility] CREATININE 0.53 0.51 - 0.95 mg/dL 03/08/2018 6:50 AM [facility] [email or web address] [facility] GLUCOSE 117(H) 74 - 99 mg/dL 03/08/2018 6:50 AM [facility] [email or web address] [facility] GFR >60 >=60 mL/min/1.7 3 sq meter 03/08/2018 6:50 AM [facility] [email or web address] [facility] Comment: eGFR has not been [...] mL/min/1.7 3 sq meter 03/08/2018 6:50 AM [facility] [email or web address] [facility] ANION GAP 17(H) 8 - 16 mmol/L 03/08/2018 6:50 AM [facility] [employer] [facility] Blood Venipuncture / Unknown 03/08/2018 5:15 AM LIFE SCIENCE TECHNICAL OFFICER 03/08/2018 5:59 AM LIFE SCIENCE TECHNICAL OFFICER Ceasar Vega MD CHEMISTRY ORDERABLES [facility] [employer] [facility] CLIA# [id number] [address] [place] [address] * (ABNORMAL) CBC WITH DIFFERENTIAL (03/08/2018 5:15 AM LIFE SCIENCE TECHNICAL OFFICER) [facility] WBC 6.6 4.0 - 9.8 K/uL 03/08/2018 6:23 AM [facility] RBC 4.10 3.90 - 4.90 M/uL 03/08/2018 6:23 AM [facility] HEMOGLOBIN 12.4 11.8 - 14.8 g/dL 03/08/2018 6:23 AM [facility] HEMATOCRIT 38.0 35.5 - 44.0 % 03/08/2018 6:23 AM [facility] MCV 92.7 82.0 - 99.0 fL 03/08/2018 6:23 AM [facility] MCH 30.2 27.2 - 32.6 pg 03/08/2018 6:23 AM [facility] - [facility] MCHC 32.6 31.5 - 35.5 g/dL 03/08/2018 6:23 AM [facility] RDW 13.7 11.5 - 14.5 % 03/08/2018 6:23 AM [facility] - . [facility] RDW-STDEV 46.6 37.1 - 48.7 fL 03/08/2018 6:23 AM [facility] - . [facility] PLATELETS 259 140 - 350 K/uL 03/08/2018 6:23 AM [facility] MPV 9.2(L) 9.3 - 12.4 fL 03/08/2018 6:23 AM [facility] NEUTROPHILS 48 % 03/08/2018 6:23 AM [facility] LYMPHOCYTES 44 % 03/08/2018 6:23 AM [facility] MONOCYTES 6 % 03/08/2018 6:23 AM [facility] EOSINOPHILS 1 % 03/08/2018 6:23 AM [facility] BASOPHILS 0 % 03/08/2018 6:23 AM [facility] IMMATURE GRANULOCYTES 1 % 03/08/2018 6:23 AM [facility] Comment:IG (Immature Granulo cyte) count includes Metamyelocytes, Myelocytes, and Promyelocytes NEUTROPHIL ABSOLUTE 3.19 1.90 - 7.00 K/uL 03/08/2018 6:23 AM [facility] LYMPHOCYTE ABSOLUTE 2.93 0.70 - 4.50 K/uL 03/08/2018 6:[address] [facility] MONOCYTE ABSOLUTE 0.39 0.10 - 1.30 K/uL 03/08/2018 6:23 AM [facility] [employer] [facility] EOSINOPHIL ABSOLUTE 0.07 0.00 - 0.70 K/uL 03/08/2018 6:23 AM [facility] [employer] [facility] BASOPHILS ABSOLUTE 0.02 0.00 - 0.20 K/uL 03/08/2018 6:[address] [facility] IMMATURE GRANULOCYTES ABSOLUTE 0.04(H) 0.00 - 0.03 K/uL 03/08/2018 6:23 AM [facility] [employer] [facility] Blood Venipuncture / Unknown 03/08/2018 5:15 AM LIFE SCIENCE TECHNICAL OFFICER 03/08/2018 5:59 AM LIFE SCIENCE TECHNICAL OFFICER Ceasar Vega MD HEMATOLOGY ORDERABLE S [facility]# [id number] [address] [facility] [place] [address] * (ABNORMAL) LIPID PANEL (03/08/2018 5:15 AM LIFE SCIENCE TECHNICAL OFFICER) CHOLESTEROL 635(H) <200 mg/dL 03/08/2018 7:01 AM [facility] [employer] [facility] TRIGLYCERIDE 2,964(H) <150 mg/dL 03/08/2018 7:01 AM [facility] [employer] [facility] HDL 40 - 59 mg/dL 03/08/2018 7:01 AM [facility] Comment: Measured HDL is not accurate when the Triglyceride value exceeds 1200. LDL CALCULATED <100 mg/dL 03/08/2018 7:01 AM [facility] [employer] [facility] Comment:Calculated LDL is no t accurate when the Triglyceride value exceeds 400. NON-HDL CHOLESTEROL <130 mg/dL 03/08/2018 7:01 AM [facility] [employer] [facility] Comment:Non HDL Cholesterol cannot be calculated when the HDL value is suppressed. Blood Venipuncture / Unknown 03/08/2018 5:15 AM LIFE SCIENCE TECHNICAL OFFICER 03/08/2018 5:59 AM LIFE SCIENCE TECHNICAL OFFICER [facility] - 03/08/2018 7:01 AM LIFE SCIENCE TECHNICAL OFFICER TOTAL CHOLESTEROL ??mg/dL ??Desirable <200 ??Borderline high [...] Panels (NCEP/AMA) Pernell Tapia MD CHEMISTRY ORDERABLES [facility] [id number] [address] [facility] [place] [address] * (ABNORMAL) POC GLUCOSE (03/08/2018 3:23 AM LIFE SCIENCE TECHNICAL OFFICER) GLUCOSE POC 138(H) 74 - 99 mg/dL 03/08/2018 3:36 AM [facility] [employer] [facility] MANAGER PROTEIN NAME POC CONSTANTINO DEL CID 03/08/2018 3:36 AM [facility] Whole blood specimen (specimen) 03/08/2018 3:23 AM LIFE SCIENCE TECHNICAL OFFICER 03/08/2018 3:36 AM LIFE SCIENCE TECHNICAL OFFICER Pernell Tapia MD POINT OF CARE TESTIN G [facility] CLIA# [id number] [address] [place] [address] * (ABNORMAL) URINALYSIS WITH REFLEX MICROSCOPIC (03/07/2018 11:04 PM LIFE SCIENCE TECHNICAL OFFICER) [facility] COLOR UA Yellow Pale to Dark Yellow 03/07/2018 11:23 PM [facility] CLARITY UA Clear Clear 03/07/2018 11:23 PM [facility] SPECIFIC GRAVITY UA >1.035(H) 1.003 - 1.035 03/07/2018 11:23 PM [facility] PH UA 5.0 5.0 - 8.0 03/07/2018 11:23 PM [facility] LEUKOCYTE ESTERASE UA Negative Negative 03/07/2018 11:23 PM [facility] NITRITE UA Negative Negative 03/07/2018 11:23 PM [facility] PROTEIN UA Negative Negative 03/07/2018 11:23 PM [facility] GLUCOSE UA Negative Negative 03/07/2018 11:23 PM [facility] KETONES UA Negative Negative 03/07/2018 11:23 PM [facility] UROBILINOGEN UA Normal <2.0 mg/dL 8 11:23 PM [facility] BILIRUBIN UA Negative Negative 03/07/2018 11:23 PM [facility] BLOOD UA Negative Negative 03/07/2018 11:23 PM [facility] Urine URINE SPECIMEN OBTAINED BY CLEAN CATCH PROCEDURE / Unknown Collection / Unknown 03/07/2018 11:04 PM LIFE SCIENCE TECHNICAL OFFICER 03/07/2018 11:11 PM LIFE SCIENCE TECHNICAL OFFICER Pernell Lind MD URINE ORDERABLES [facility] CLIA# [id number] [address] [place] [address] * (ABNORMAL) POC GLUCOSE (03/07/2018 10:58 PM LIFE SCIENCE TECHNICAL OFFICER) GLUCOSE POC 130(H) 74 - 99 mg/dL 03/07/2018 11:19 PM [facility] COMMENT, GLU POC Notified RN/MD 03/07/2018 11:19 PM [facility] MANAGER PROTEIN NAME POC ZURI MCCALL 03/07/2018 11:19 PM [facility] Whole blood specimen (specimen) 03/07/2018 10:58 PM LIFE SCIENCE TECHNICAL OFFICER 03/07/2018 11:19 PM LIFE SCIENCE TECHNICAL OFFICER Almas Ortega MD POINT OF CARE TESTIN G [facility]# [id number] [address] [facility] [address] [address] * CT ABDOMEN PELVIS W CONTRAST (03/07/2018 6:24 PM LIFE SCIENCE TECHNICAL OFFICER) Anatomical Region Laterality Modality Abdomen Computed Tomogra phy 03/07/2018 6:24 PM LIFE SCIENCE TECHNICAL OFFICER Impressions 03/08/2018 1:23 PM LIFE SCIENCE TECHNICAL OFFICER IMPRESSION: Status post hysterectomy. Partial duplication of [...] 1 - [facility] Narrative 03/08/2018 1:23 PM LIFE SCIENCE TECHNICAL OFFICER EXAM: CT ABDOMEN AND PELVIS WITH IV [...] 1 - [facility] Pernell Lind MD CT ORDERABLES * LIPASE (03/07/2018 2:15 PM LIFE SCIENCE TECHNICAL OFFICER) Pathologist [facility] LIPASE 31 13 - 60 U/L 03/07/2018 3:02 PM LIFE SCIENCE TECHNICAL OFFICER [facility] Blood Venipuncture / Unknown 03/07/2018 2:15 PM LIFE SCIENCE TECHNICAL OFFICER 03/07/2018 2:25 PM LIFE SCIENCE TECHNICAL OFFICER Pernell Lind MD CHEMISTRY ORDERABLES [facility] CLIA# [id number] [address] [facility] [address] [place] [place] [address] * (ABNORMAL) COMPREHENSIVE METABOLIC PANEL (03/07/2018 2:15 PM LIFE SCIENCE TECHNICAL OFFICER) Pathologist [facility] SODIUM 128(L) 136 - 145 mmol/L 03/07/2018 4:50 PM [facility] [employer] LABORATORY [facility] POTASSIUM 3.5 - 5.0 mmol/L 03/07/2018 4:50 PM [facility] Comment: Gross hemolysis present. ??Result unreliable. CHLORIDE 93(L) 98 - 107 mmol/L 03/07/2018 4:50 PM [facility] CO2 21(L) 22 - 29 mmol/L 03/07/2018 4:50 PM [facility] [employer] LABORATORY [facility] CALCIUM 9.2 8.6 - 10.2 mg/dL 03/07/2018 4:50 PM [facility] [employer] LABORATORY [facility] . [facility] BUN 9 6 - 20 mg/dL 03/07/2018 4:50 PM [facility] [employer] LABORATORY [facility]. [facility] CREATININE 0.39(L) 0.51 - 0.95 mg/dL 03/07/2018 4:50 PM [facility] [employer] LABORATORY [facility] GLUCOSE 122(H) 74 - 99 mg/dL 03/07/2018 4:50 PM [facility] [employer] LABORATORY [facility] TOTAL PROTEIN 7.3 6.7 - 8.6 g/dL 03/07/2018 4:50 PM [facility] [employer] LABORATORY [facility] ALBUMIN 4.2 3.5 - 5.2 g/dL 03/07/2018 4:50 PM [facility] BILIRUBIN TOTAL 0.2(L) 0.3 - 1.2 mg/dL 03/07/2018 4:50 PM [facility] [employer] LABORATORY [facility] ALKALINE PHOSPHATASE 35 - 104 U/L 03/07/2018 4:50 PM [facility] [employer] LABORATORY [facility] Comment: Gross hemolysis present. ??Result unreliable. AST 6 <33 U/L 03/07/2018 4:50 PM [facility] Comment: Cleared of chylomicrons. Hemolysis present. Result may be falsely elevated. ALT 16 <34 U/L 03/07/2018 4:50 PM [facility] Comment: Cleared of chylomicrons. Hemolysis present. Result may be falsely elevated. GFR >60 >=60 mL/min/1.7 3 sq meter 03/07/2018 4:50 PM [facility] [employer] [facility] Comment: eGFR has not been [...] mL/min/1.7 3 sq meter 03/07/2018 4:50 PM [facility] [employer] [facility] ANION GAP 14 8 - 16 mmol/L 03/07/2018 4:50 PM [facility] [employer] [facility] Blood Venipuncture / Unknown 03/07/2018 2:15 PM LIFE SCI[employer] TECHNICAL OFFICER 03/07/2018 2:25 PM LIFE SCIENCE TECHNICAL OFFICER [facility] [employer] [facility] - 03/07/2018 4:50 PM LIFE SCIENCE TECHNICAL OFFICER Samples containing indocyanine green cause interferences on Total and/or Direct Bilirubin and must not be measured. Pernell Lind MD CHEMISTRY ORDERABLES [facility]# [id number] [address] [facility] [place] [address] * (ABNORMAL) CBC WITH DIFFERENTIAL (03/07/2018 2:15 PM LIFE SCIENCE TECHNICAL OFFICER) WBC 7.8 4.0 - 9.8 K/uL 03/07/2018 2:36 PM [facility] [employer] [facility] RBC 4.69 3.90 - 4.90 M/uL 03/07/2018 2:36 PM [facility] [employer] [facility] HEMOGLOBIN 14.7 11.8 - 14.8 g/dL 03/07/2018 2:36 PM [facility] [employer] [facility] HEMATOCRIT 42.4 35.5 - 44.0 % 03/07/2018 2:36 PM [facility] [employer] [facility] MCV 90.4 82.0 - 99.0 fL 03/07/2018 2:36 PM LIFE SCIENCE TECHNICAL OFFICER [employer] [facility] MCH 31.3 27.2 - 32.6 pg 03/07/2018 2:36 PM LIFE SCIENCE TECHNICAL OFFICER [facility] MCHC 34.7 31.5 - 35.5 g/dL 03/07/2018 2:36 PM LIFE SCIENCE TECHNICAL OFFICER [employer] [facility] RDW 13.6 11.5 - 14.5 % 03/07/2018 2:36 PM LIFE SCIENCE TECHNICAL OFFICER [employer] [facility] RDW-STDEV 44.3 37.1 - 48.7 fL 03/07/2018 2:36 PM LIFE SCIENCE TECHNICAL OFFICER [employer] [facility] PLATELETS 339 140 - 350 K/uL 03/07/2018 2:36 PM LIFE SCIENCE TECHNICAL OFFICER [employer] [facility] MPV 9.5 9.3 - 12.4 fL 03/07/2018 2:36 PM LIFE SCIENCE TECHNICAL OFFICER [employer] [facility] NEUTROPHILS 60 % 03/07/2018 2:36 PM LIFE SCIENCE TECHNICAL OFFICER [employer] [facility] LYMPHOCYTES 33 % 03/07/2018 2:36 PM LIFE SCIENCE TECHNICAL OFFICER [employer] [facility] MONOCYTES 5 % 03/07/2018 2:36 PM LIFE SCIENCE TECHNICAL OFFICER [employer] [facility] EOSINOPHILS 1 % 03/07/2018 2:36 PM LIFE SCIENCE TECHNICAL OFFICER [employer] [facility] BASOPHILS 1 % 03/07/2018 2:36 PM LIFE SCIENCE TECHNICAL OFFICER [employer] [facility] IMMATURE GRANULOCYTES 1 % 03/07/2018 2:36 PM LIFE SCIENCE TECHNICAL OFFICER [employer] [facility] Comment:IG (Immature Granulo cyte) count includes Metamyelocytes, Myelocytes, and Promyelocytes NEUTROPHIL ABSOLUTE 4.67 1.90 - 7.00 K/uL 03/07/2018 2:36 PM LIFE SCIENCE TECHNICAL OFFICER [employer] [facility] LYMPHOCYTE ABSOLUTE 2.60 0.70 - 4.50 K/uL 03/07/2018 2:36 PM LIFE SCIENCE TECHNICAL OFFICER [employer] [facility] MONOCYTE ABSOLUTE 0.37 0.10 - 1.30 K/uL 03/07/2018 2:36 PM LIFE SCIENCE TECHNICAL OFFICER [employer] [facility] EOSINOPHIL ABSOLUTE 0.08 0.00 - 0.70 K/uL 03/07/2018 2:36 PM LIFE SCIENCE TECHNICAL OFFICER [employer] [facility] BASOPHILS ABSOLUTE 0.04 0.00 - 0.20 K/uL 03/07/2018 2:36 PM LIFE SCIENCE TECHNICAL OFFICER [facility] IMMATURE GRANULOCYTES ABSOLUTE 0.05(H) 0.00 - 0.03 K/uL 03/07/2018 2:36 PM LIFE SCIENCE TECHNICAL OFFICER [facility] Blood Venipuncture / Unknown 03/07/2018 2:15 PM LIFE SCIENCE TECHNICAL OFFICER 03/07/2018 2:25 PM LIFE SCIENCE TECHNICAL OFFICER Pernell Lind MD HEMATOLOGY ORDERABLE S [facility] CLIA# [id number] [address] [place] [place] [address] documented in this encounter Visit Diagnoses Diagnosis [...] Pain, Break-Through, Routine Given 03/09/2018 5:34 AM LIFE SCIENCE TECHNICAL OFFICER 650 mg Given 03/08/2018 8:06 PM LIFE SCIENCE TECHNICAL OFFICER 650 mg Given 03/08/2018 2:28 PM LIFE SCIENCE TECHNICAL OFFICER 650 mg atorvastatin (LIPITOR) tablet 80 mg 80 mg, Oral, DAILY AT BEDTIME, First dose on 03/08/18 at 0000, Until Discontinued, Routine Given 03/08/2018 9:14 PM LIFE SCIENCE TECHNICAL OFFICER 80 mg Given 03/08/2018 4:13 AM LIFE SCIENCE TECHNICAL OFFICER 80 mg citalopram (CeleXA) tablet 40 mg 40 mg, Oral, DAILY, First dose on 03/08/18 at 0900, Until Discontinued, Routine Given 03/09/2018 10: 00 AM LIFE SCIENCE TECHNICAL OFFICER 40 mg Given 03/08/2018 8:10 AM LIFE SCIENCE TECHNICAL OFFICER 40 mg dextrose 5% - sodium [...] Itching, Restlessness, Routine Given 03/08/2018 8:05 PM LIFE SCIENCE TECHNICAL OFFICER 25 mg Given 03/08/2018 2:27 PM LIFE SCIENCE TECHNICAL OFFICER 25 mg enoxaparin (LOVENOX) injection 40 mg 40 mg, subCUT, EVERY 24 HOURS, First dose on 03/08/18 at 0900, Until Discontinued, Routine Given 03/09/2018 10:00 AM LIFE SCIENCE TECHNICAL OFFICER 40 mg Abdomen, Left Lower Quadrant Given 03/08/2018 1:19 PM LIFE SCIENCE TECHNICAL OFFICER 40 mg Ab domen, Left Lower Quadrant fenofibrate (LOFIBRA) tablet 160 mg 160 mg, Oral, DAILY, First dose on 03/08/18 at 0900, Until Discontinued, Routine Given 03/08/2018 1:12 PM LIFE SCIENCE TECHNICAL OFFICER 160 mg Fish Oil-Elton-3 Fatty Acids 360-1,200 mg capsule 2 Capsule 2 Capsule, Oral, TWO TIMES DAILY, First dose (after last modification) on 03/08/18 at 1030, Until Discontinued, Routine Given 03/09/2018 10:00 AM LIFE SCIENCE TECHNICAL OFFICER 2 Capsules Given 03/08/2018 9:13 PM LIFE SCIENCE TECHNICAL OFFICER 2 Capsules Given 03/08/2018 1:11 PM LIFE SCIENCE TECHNICAL OFFICER 2 Capsules gemfibrozil (LOPID) tablet 600 mg 600 mg, Oral, TWO TIMES DAILY BEFORE MEALS, First dose on 03/08/18 at 1600, Until Discontinued, Routine Given 03/09/2018 5:30 AM LIFE SCIENCE TECHNICAL OFFICER 600 mg Given 03/08/2018 8:06 PM LIFE SCIENCE TECHNICAL OFFICER 600 mg glucagon HCl 1 mg injection 1 mg 1 mg, IM, SEE ADMIN INSTRUCTIONS, Starting on 03/08/18 at 0246, Until 03/09/18 at 1738, Routine hyoscyamine (LEVSIN) sublingual tablet 0.125 mg 0.125 mg, Sublingual, EVERY 6 HOURS PRN, Starting on 03/08/18 at 1307, Until 03/09/18 at 1738, Spasm, Routine Given 03/09/2018 10:10 AM LIFE SCIENCE TECHNICAL OFFICER 0.125 mg Given 03/08/2018 2:28 PM LIFE SCIENCE TECHNICAL OFFICER 0.125 mg insulin glargine (LANTUS) injection 10 Units 10 Units, subCUT, TWO TIMES DAILY, First dose (after last modification) on 03/09/18 at 2100, Until Discontinued, Routine insulin glargine (LANTUS) injection 20 Units 20 Units, subCUT, TWO TIMES DAILY, First dose on 03/08/18 at 0800, Until Discontinued, Routine Given 03/08/2018 9:19 PM LIFE SCIENCE TECHNICAL OFFICER 20 Units Arm, Right Upper Given 03/08/2018 8:06 AM LIFE SCIENCE TECHNICAL OFFICER 20 Units De ltoid, Left insulin lispro (HumaLOG) injection 5 Units 5 Units, subCUT, THREE TIMES DAILY WITH MEALS, First dose on 03/09/18 at 1200, Until Discontinued, Routine Given 03/09/2018 2:16 PM LIFE SCIENCE TECHNICAL OFFICER 5 Units Arm, Right Upper insulin lispro (HumaLOG) variable dose injection subCUT, THREE TIMES DAILY WITH MEALS, First dose (after last modification) on 03/09/18 at 1200, Until Discontinued, Routine iopamidol (ISOVUE-300) 61 % injection 125 mL 125 mL, IV, INTRA-PROCEDURE ONCE, 1 dose, Starting on Sat03/07/18 at 1744, Until Sat03/07/18 at 1824, Routine Contrast Given 03/07/2018 6:24 PM LIFE SCIENCE TECHNICAL OFFICER 125 mL lactated Ringers solution IV, at 125 mL/hr, PRE-PROCEDURE CONTINUOUS, Starting on 03/08/18 at 1100, Until 03/08/18 at 1254, Routine Continue from Pre-Op 03/08/2018 11:53 AM LIFE SCIENCE TECHNICAL OFFICER New Bag 03/08/2018 10:55 AM LIFE SCIENCE TECHNICAL OFFICER 125 mL/hr levothyroxine (SYNTHROID) tablet 175 mcg 175 mcg, Oral, DAILY EARLY, First dose on 11/10/18 at 0600, Until Discontinued, Routine Given 03/08/2018 7:26 AM LIFE SCIENCE TECHNICAL OFFICER 175 mcg levothyroxine (SYNTHROID) tablet 200 mcg 200 mcg, Oral, DAILY EARLY, First dose (after last modification) on 03/09/18 at 0600, Until Discontinued, Routine Given 03/09/2018 5:30 AM LIFE SCIENCE TECHNICAL OFFICER 200 mcg LORazepam (ATIVAN) 2 mg/mL injection 0.25 mg 0.25 mg, IV, TWO TIMES DAILY PRN, Starting on Sat03/07/18 at 2342, Until Sat03/08/18 at 1308, Anxiety, Routine Given 03/08/2018 12:32 AM LIFE SCIENCE TECHNICAL OFFICER 0.25 mg morphine 4 mg/mL injection 2 mg 2 mg, IV, EVERY 3 HOURS PRN, Starting on Sat03/07/18 at 2341, Until Sat03/08/18 at 1308, Pain (See admin instructions), Routine Given 03/08/2018 7:27 AM LIFE SCIENCE TECHNICAL OFFICER 2 mg Given 03/08/2018 4:09 AM LIFE SCIENCE TECHNICAL OFFICER 2 mg morphine 4 mg/mL injection 4 mg 4 mg, IV, ONE TIME ONLY, 1 dose, On Sat03/07/18 at 1715, Routine Given 03/07/2018 5:25 PM LIFE SCIENCE TECHNICAL OFFICER 4 mg morphine 4 mg/mL injection 4 mg 4 mg, IV, ONE TIME ONLY, 1 dose, On Sat03/07/18 at 1945, Routine Given 03/07/2018 8:18 PM LIFE SCIENCE TECHNICAL OFFICER 4 mg morphine 4 mg/mL injection 4 mg 4 mg, IV, EVERY 3 HOURS PRN, Starting on Sat03/07/18 at 2208, Until Sat03/07/18 at 2345, Pain (See admin instructions), Routine Given 03/07/2018 10:41 PM LIFE SCIENCE TECHNICAL OFFICER 4 mg niacin (NIACOR) tablet 500 mg 500 mg, Oral, TWO TIMES DAILY, First dose on Sat03/08/18 at 1030, Until Discontinued, Routine Given 03/08/2018 1:11 PM LIFE SCIENCE TECHNICAL OFFICER 500 mg niacin (NIASPAN ER) SR 24 hour tablet 500 mg 500 mg, Oral, TWO TIMES DAILY WITH MEALS, First dose on Sat03/08/18 at 2300, Until Discontinued, Routine Given 03/09/2018 10:03 AM LIFE SCIENCE TECHNICAL OFFICER 500 mg Given 03/08/2018 10:40 PM LIFE SCIENCE TECHNICAL OFFICER 500 mg ondansetron (ZOFRAN ODT) tablet 4 mg 4 mg, Oral, EVERY 6 HOURS PRN, Starting on Sat03/07/18 at 2344, Until Sat03/09/18 at 1738, Nausea/Emesis, Routine Given 03/08/2018 10:41 PM LIFE SCIENCE TECHNICAL OFFICER 4 mg Given 03/08/2018 12:28 AM LIFE SCIENCE TECHNICAL OFFICER 4 mg pantoprazole (PROTONIX) tablet 40 mg 40 mg, Oral, DAILY, First dose on 03/08/18 at 1430, Until Discontinued, Routine Given 03/09/2018 10: 00 AM LIFE SCIENCE TECHNICAL OFFICER 40 mg Given 03/08/2018 2:44 PM LIFE SCIENCE TECHNICAL OFFICER 40 mg potassium Cl 20 mEq in dextrose 5% - NaCl 0.45% 1000 mL infusion IV, at 125 mL/hr, CONTINUOUS, Starting on Sat03/07/18 at 2215, Until Sat03/07/18 at 2346, Routine New Bag 03/07/2018 10:37 PM LIFE SCIENCE TECHNICAL OFFICER 125 mL/hr prochlorperazine (COMPAZINE) injection 5 mg 5 mg, IV, ONE TIME ONLY, 1 dose, On Sat03/07/18 at 1715, Routine Given 03/07/2018 5:25 PM LIFE SCIENCE TECHNICAL OFFICER 5 mg prochlorperazine (COMPAZINE) injection 5 mg 5 mg, IV, EVERY 6 HOURS PRN, Starting on Sat03/07/18 at 2208, Until Sat03/09/18 at 1738, Nausea, Routine Given 03/09/2018 10:13 AM LIFE SCIENCE TECHNICAL OFFICER 5 mg Given 03/08/2018 1:22 PM LIFE SCIENCE TECHNICAL OFFICER 5 mg Given 03/08/2018 4:10 AM LIFE SCIENCE TECHNICAL OFFICER 5 mg sodium chloride 0.9% bolus solution 500 mL 500 mL, IV, ONE TIME ONLY, 1 dose, On Sat03/07/18 at 1715, at 1,000 mL/hr, Administer over 30 Minutes, Routine New Bag 03/07/2018 5:25 PM LIFE SCIENCE TECHNICAL OFFICER 500 mL 1000 m L/hr sodium chloride 0.9% infusion IV, at 150 mL/hr, CONTINUOUS, Starting on Sat03/07/18 at 1715, Until Sat03/09/18 at 1738, Routine Rate Change 03/09/2018 2:16 PM LIFE SCIENCE TECHNICAL OFFICER 20 mL/hr Rate Change 03/09/2018 12:35 PM LIFE SCIENCE TECHNICAL OFFICER 150 mL/hr Rate Change 03/09/2018 12:25 PM LIFE SCIENCE TECHNICAL OFFICER 20 mL/hr sodium chloride flush injection 10 mL 10 mL, IV, ONE TIME ONLY, 1 dose, On Sat03/07/18 at 1745, Routine Given 03/07/2018 5:45 PM LIFE SCIENCE TECHNICAL OFFICER 10 mL sodium chloride flush injection 3 mL 3 mL, IV, TWO TIMES DAILY, First dose on 03/08/18 at 0100, Until Discontinued, Routine Given 03/08/2018 9:21 PM LIFE SCIENCE TECHNICAL OFFICER 3 mL Given 03/08/2018 10:15 AM LIFE SCIENCE TECHNICAL OFFICER 3 mL Given 03/08/2018 4:19 AM LIFE SCIENCE TECHNICAL OFFICER 3 mL spironolactone (ALDACTONE) tablet 100 mg 100 mg, Oral, DAILY, First dose on 03/08/18 at 0900, Until Discontinued, Routine Given 03/09/2018 10:00 AM LIFE SCIENCE TECHNICAL OFFICER 100 mg Given 03/08/2018 1:11 PM LIFE SCIENCE TECHNICAL OFFICER 100 mg traZODone (DESYREL) tablet 100 mg 100 mg, Oral, DAILY AT BEDTIME, First dose on 03/08/18 at 0000, Until Discontinued, Routine Given 03/08/2018 9:12 PM LIFE SCIENCE TECHNICAL OFFICER 100 mg Given 03/08/2018 12:27 AM LIFE SCIENCE TECHNICAL OFFICER 100 mg documented in this encounter Active and Recently Administered Medications Times are shown in LIFE SCIENCE TECHNICAL OFFICER. Scheduled Medication Order 03/07/2018 03/08/2018 03/09/2018 atorvastatin [...] (Given - Provider: Harvey Rendon RN) Fish Oil-Elton-3 Fatty Acids 360-1,200 mg capsule 2 Capsule [...] Alize Darling RN)[id number] (Paused - Provider: Alize aDrling RN)[id number] (Rate Change - Provider: Alize Darling [...] RN) documented in this encounter Care Teams Manager Entry Relationship Specialty Start Date End Date Guerrero Middleton PA-C PCP - General Physician Banking Representative 02/13/18 documented as of this encounter
--- OUTSIDE RECORDS SUMMARY | 2024-05-03 21:59 | XMS_ITS | Encounter Summary ---
Author Organization [facility] Address [address] [place] [address] Care Team Providers Care Automobile Upholsterer Name Role Phone Guerrero Middleton PA-C Primary Care Provide r Encounter Details Date Type Department Care Team ([facility] Contact Info) Description 02/20/2018 Orders Only [facility] [place] [address] [place] [phone] Marlys Mayer MD [address] [place], [place] [id number] Mixed hyperlipidemia (Primary Dx) Social History Tobacco [...] Visit [facility] [address] [place] [address] Marlys Mayer MD [address] [facility] [address] [place], [place] [id number] documented as of this encounter Visit Diagnoses Diagnosis Mixed hyperlipidemia- Primary documented in this encounter Care Teams Automobile Upholsterer Relationship Specialty Start Date End Date Guerrero Middleton PA-C PCP - General Physician Direct Care Staffer 02/13/18 documented as of this encounter
--- OUTSIDE RECORDS SUMMARY | 2024-05-03 21:59 | XMS_ITS | Encounter Summary ---
Author Organization [facility] Address [address] [place] [address] Care Team Providers Care Dough Sheeter Name Role Phone Guerrero Middleton PA-C Primary Care Provide r Reason for Visit * Auth/Cert Specialty Diagnoses / Procedures Referred By Conthardik t Referred To Contact Emergency Medicine [facility] Emergency Dept [address] [place] [address] Referral ID Status Reason Start Date Expiration Date Visits Re quested Visits Authorized [id number] 1 1 Encounter Details Date Type Department Care Team (Late st Contact Info) Description 03/08/2018 11:35 AM ASSEMBLER TESTER Anesthesia Event [facility] [place] [address] [facility] [address] [place] [address] Annie Jeffrey MD [address] [place] [address] Anesthesia Record Procedure Summary Procedure [...] apparent Anesthesia related complications Nahed Chawla CRNA MBLER TESTER * Anesthesia Postprocedure Evaluation - Annie Jeffrey [...] (03/08/18 1050) Pain Rating: Activity: 4 (03/08/18 0650) Nausea/Vomiting: no nausea and no vomiting Post-Op hydration: well hydrated Respiratory function: no respiratory symptoms Airway patency: normal Cardiovascular function: Normal - Regular rate and rhythm Mental status, LOC: 0=alert; keenly responsive Patient participated in evaluation: yes Unanticipated Events: no Annie Jeffrey MD MBLER TESTER * Anesthesia Handoff - Annie Jeffrey MD - 03/08/2018 12:01 PM ASSEMBLER TESTER Post-Anesthetic transfer of care report elements to [...] 11:57 AM) 12:01 PM Annie Jeffrey MD MBLER TESTER * Anesthesia Preprocedure Evaluation - Annie Jeffrey [...] discussed with Patient. Plan discussed with Surgeon. MBLER TESTER documented in this encounter Miscellaneous Notes * Addendum Note - Nahed Chawla CRNA - 03/09/2018 8:23 AM CST Addendum created 03/09/18822 by Nahed Chawla CRNA Sign clinical note MBLER TESTER documented in this encounter Plan of Treatment Upcoming Encounters Date Type Department Care Team (Late st Contact Info) Description 09/14/2024 3:00 PM CDT Office Visit [facility] [id number] [place] [address] Marlys Mayer MD [address] [place] [address] documented as of this encounter Visit Diagnoses Not on filedocumented in this encounter Administered Medications Inactive Administered Medications - up to 3 most recent administrations Medication Order MAR Action Action Date Dose Rate Site lactated Ringers solution IV, at 125 mL/hr, PRE-PROCEDURE CONTINUOUS, Starting on 03/08/18 at 1100, Until 03/08/18 at 1254, Routine Continue from Pre-Op 03/08/2018 11:53 AM ASSEMBLER TESTER New Bag 03/08/2018 10:55 AM ASSEMBLER TESTER 125 mL/hr lidocaine PF (XYLOCAINE MPF) 100 mg/5 mL (2 %) injection INTRA-PROCEDURE PRN, Starting on 03/08/18 at 1147, Until 03/08/18 at 1159, Routine, Anesthesia Intra-op Given 03/08/2018 11:47 AM ASSEMBLER TESTER 40 mg propofol (DIPRIVAN) injection INTRA-PROCEDURE PRN, Starting on 03/08/18 at 1147, Until 03/08/18 at 1159, Anesthesia Intra-op Given 03/08/2018 11:47 AM ASSEMBLER TESTER 200 mg documented in this encounter Care Teams Dough Sheeter Relationship Specialty Start Date End Date Guerrero Middleton PA-C PCP - General Physician Credit Reporter 02/13/18 documented as of this encounter
--- OUTSIDE RECORDS SUMMARY | 2024-05-03 21:59 | XMS_ITS | Encounter Summary ---
Author Organization [facility] Address [address] [place] [address] Care Team Providers Care Prescription Clerk Name Role Phone Guerrero Middleton PA-C Primary Care Provide r Reason for Visit * Reason Comments Follow Up 1 month follow up Encounter Details Date Type Department Care Team (Latest Contact Info) Description 04/02/2018 2:00 PM COMPLAINT INVESTIGATOR Office Visit [facility] Heart and Vascular At [facility] [address] [place] [phone] Marlys Mayer MD [address] [place] [address] [address] [place] [address] Hypertriglyceridemia (Primary Dx); Type 2 diabetes mellitus without complication, with long-term current use of insulin; Pancreatitis, recurrent; Metabolic syndrome; Obesity, Class I, BMI 30-34.9 Social History Tobacco Use Types Packs/Day Years [...] Reading Time Taken Comments Blood Pressure 138/84 04/02/2018 1:45 PM COMPLAINT INVESTIGATOR Pulse 96 04/02/2018 1:45 PM COMPLAINT INVESTIGATOR Temperature - - Respiratory Rate - - Oxygen Saturation 98% 04/02/2018 1:45 PM COMPLAINT INVESTIGATOR Inhaled Oxygen Concentration - - Weight 90.7 kg (200 lb) 04/02/2018 1:45 PM COMPLAINT INVESTIGATOR Height 162.6 cm (5' 4 ) 04/02/2018 1:45 PM COMPLAINT INVESTIGATOR Body Mass Index 34.33 04/02/2018 1:45 PM COMPLAINT INVESTIGATOR documented in this encounter Progress Notes * Marlys Maeyr MD - 04/02/2018 2:22 PM CST [facility] Follow-up Visit Casandra Jones, a 42 y.o. female returns for follow-up of these problems: ICD-10-CM ICD-9-CM 1. Hypertriglyceridemia E78.1 272.1 2. Type 2 diabetes mellitus without complication, with long-term current use of insulin E11.9 250.00 Z79.4 V58.67 3. Pancreatitis, recurrent K86.1 577.1 4. Metabolic syndrome E88.81 277.7 5. Obesity, Class I, BMI 30-34.9 E66.9 278.00 Since last visit on 03/06/2018: Hospitalizations: 03/07 to 03/09/2018 with elevated trigs and abdominal pain- it was determined thatshfeli did not have pancreatitis and no plasmapheresis was done. She has not had labs drawn since she was discharged- triglycerides were 2399. She reports blood sugars are usually between 150-200, hemoglobin A1c last month was 8.7 She says possibility of an insulin pump was mentioned but she has been unable to get an appointmentwith endocrinology She reports compliance with all medications and diabetic diet. She does not drink alcohol. She works 2-3 hours per day and is exhausted after work. She does not exercise. Procedures or surgeries: Abdominal CT, upper endoscopy with biopsy, negative for H Pylori Cardiac symptoms: Denies chest pain, PND, orthopnea, edema,palpitations, syncope or near syncope. Medications: No new medications Side effects: None reported Current Outpatient Prescriptions Medication Sig Dispense Refill ??? ondansetron (ZOFRAN ODT) 4 mg Tablet, Rapid Dissolve Dissolve 1 Tablet on top of tongue,then swallow with saliva every 6 hours as needed for nausea/vomiting. 30 Tablet 0 ??? rosuvastatin (CRESTOR) 5 mg tablet Take 4 Tablets (20 mg) by mouth daily at bedtime. 1 Tablet 0 ??? hyoscyamine 0.125 mg Tablet, Sublingual Place 1 Tablet under tongue every 6 hours as needed forSpasm. 30 Tablet 0 ??? levothyroxine 200 mcg tablet Take 1 Tablet by mouth daily without food in the morning 30 minutes before eating anything. 30 Tablet 0 ??? omega-3 acid ethyl esters (LOVAZA) 1 gram Capsule Take 4 Capsules by mouth 2 times daily with meals. 60 Capsule 0 ??? LORazepam (ATIVAN) 1 mg tablet Take 1 mg by mouth 2 times daily. ??? iyojsye-vnzuyq-zhhhwxgb DR (CREON) 60-12-38 capsule Take by mouth [...] by mouth 2 times daily . ??? OFPVR9C-LGZ-TUK-NEJQ OIL ORAL Take by mouth 4 times daily. ??? traZODone (DESYREL) 100 mg tablet Take 100 mg by mouth. ??? insulin aspart protamine-aspart (NovoLOG MIX 70-30) 100 unit/mL (70-30) pen syringe Inject by subcutaneous injection 12 units breakfast 14 units lunch 20 units dinner Also with sliding scale. ??? levothyroxine 200 mcg tablet Take 1 Tablet by mouth daily telephone quotation clerk. 30 Tablet 3 ??? Kwqmy8-DlhW4-A00-E-FA-Fish Oil [phone] td-bc-mct-mcg Capsule Take 2 Caplets by mouth 2 times daily. 120 Capsule 3 ??? sennosides (SENOKOT) 8.6 mg tablet Take 1 Tablet by mouth 2 times daily. 30 Tablet 0 ??? hydrocortisone 1 % Ointment Apply to affected area 2 times daily. 28 Gram 0 ??? insulin glargine (LANTUS) 100 unit/mL injection Inject 10 Units by subcutaneous injection 2 times daily. 15 mL 0 ??? traZODone (DESYREL) 50 mg tablet Take 50 mg by mouth daily at bedtime. ??? spironolactone (ALDACTONE) 25 mg tablet Take 25 mg by mouth daily. ??? rosuvastatin (CRESTOR) 20 mg tablet Take 20 mg by mouth daily at bedtime. ??? pantoprazole (PROTONIX) 40 mg Tablet, Delayed Release (E.C.) Take 40 mg by mouth daily. ??? niacin (NIACOR) 500 [...] daily as needed for Anxiety . ??? ykulbnu-hsmoel-uzvmyldp DR (CREON 12) 60-12-38 capsule Take by mouth 3 times daily after meals. ??? fenofibrate nanocrystallized (TRICOR) 145 mg tablet Take 145 mg by mouth daily. ??? citalopram (CeleXA) 40 mg tablet Take 40 mg by mouth daily at bedtime. ??? spironolactone (ALDACTONE) 100 mg Oral tablet Take 1 Tab by mouth daily. 30 Tab 2 ??? fenofibrate (LOFIBRA) 160 mg Oral Tab Take 1 Tab by mouth daily. 90 Tab 0 ??? metFORMIN (GLUCOPHAGE) 500 mg Oral tablet Take 1 Tab by mouth daily with supper. 90 Tab 2 ??? citalopram (CELEXA) 40 mg Oral tablet Take 40 mg by mouth daily. No current facility-administered medications for this visit. [...] HYSTERECTOMY partial due to endometriosis 2006 ??? [place] ESOPHAGOGASTRODUODENOSCOPY TRANSORAL DIAGNOSTIC N/A 03/08/2018 ESOPHAGOGASTRODUODENOSCOPY performed by Ceasar Vega MD at [facility] Social History Social History ??? Marital status: Spouse name: N/A ??? Number of children: N/A ??? Years of education: N/A Occupational History ??? [employer] Social History Main Topics ??? Smoking status: [...] Neuro/psych-without sx of depression Physical Exam BP 138/84 Pulse 96 Ht 5' 4 (1.626 m) Wt 90.7 kg (200 lb) SpO2 98% BMI 34.33 kg/m?? Wt Readings from Last 3 Encounters: 04/02/18 90.7 kg (200 lb) 03/07/18 86.2 kg (190 lb) 03/06/18 89.8 kg (198 lb) General-No acute distress, alert, oriented Neck- without JVD, thyroid not enlarged Lungs-Clear to auscultation CV-Regular rate and rhythm, without murmer, gallop or rub. Without carotid bruits . Abdomen-soft, nontender without organomegaly Extremeties-Without edema. Distal pulses normal. Normal range of motion. Normal muscle strength Lab Results Component Value Date/Time CHOLTOT 635 (H) 03/08/2018 05:15 AM CHOLTOT 703 (H) 03/06/2018 03:01 PM CHOLTOT 340 (H) 02/16/2018 04:36 AM HDL 03/08/2018 05:15 AM Comment: Measured HDL is not accurate when the Triglyceride value exceeds 1200. HDL 14 (L) 03/06/2018 03:01 PM HDL 25 (L) 02/16/2018 04:36 AM LDLCALC 03/08/2018 05:15 AM Comment: Calculated LDL is not accurate when the Triglyceride value exceeds 400. LDLCALC 03/06/2018 03:01 PM Comment: Calculated LDL is not accurate when the Triglyceride value exceeds 400. LDLCALC 02/16/2018 04:36 AM Comment: Calculated LDL is not accurate when the Triglyceride value exceeds 400. LDLDIRECT 110 08/10/2011 07:21 AM TRIGLYCERIDE 2,339 (H) 03/09/2018 05:39 AM TRIGLYCERIDE 2,887 (H) 03/08/2018 01:02 PM TRIGLYCERIDE 2,964 (H) 03/08/2018 05:[address] 03/07/2018 IMPRESSION: Status post hysterectomy. 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 No urinary tract obstruction is seen. There is no urinary tract mass. Chronic deformity of the left kidney is noted. ?? No bowel obstruction or acute process. Impression ICD-10-CM ICD-9-CM 1. Hypertriglyceridemia- poorly controlled E78.1 272.1 2. Type 2 diabetes mellitus without complication, with long-term current use of insulin- poorly controlled E11.9 250.00 Z79.4 V58.67 3. Pancreatitis, recurrent K86.1 577.1 4. Metabolic syndrome E88.81 277.7 5. Obesity, Class I, BMI 30-34.9 E66.9 278.00 Plan Discussed TLC. Weight loss, physical activity and better glucose control would help lower triglycerides Drink more water- at least 64 oz daily Medications: Continue current medications Diagnostic Tests: Lipid panel, CMP, CBC, amylase, lipase - she will have this drawn in AM Follow-up: Next OV in about 6 weeks orsooner if new or worsening cardiac symptoms Call endocrinology office and see if she can be seen LAINT INVESTIGATOR * Pina Frank RMA - 04/02/2018 1:45 PM CST Patient is here for her 1 month follow up Patient reports having some SOB, edema in feet, hands ankles and dizziness Denies chest pain and palpitations. LAINT INVESTIGATOR documented in this encounter Plan of Treatment Upcoming Encounters Date Type Department Care Team (Late st Contact Info) Description 09/14/2024 3:00 PM CDT Office Visit [facility] Heart and Vascular - [place] [address] [place] [phone] Marlys Mayer MD [address] [place] [address] Scheduled Orders Name Type Priority Associated Diagnoses Orde r Schedule LIPID PANEL Lab Routine Hypertriglyceridemia Type 2 diabetes mellitus without complication, with long-term current use of insulin Pancreatitis, recurrent Expected: 04/02/2018, Expires: 04/02/2019 documented as of this encounter Visit Diagnoses Diagnosis Hypertriglyceridemia- Primary Pure hyperglyceridemia Type 2 diabetes mellitus without complication, with long-term current use of insulin Pancreatitis, recurrent Chronic pancreatitis Metabolic syndrome Dysmetabolic Syndrome X Obesity, Class I, BMI 30-34.9 Obesity, unspecified documented in this encounter Care Teams Prescription Clerk Relationship Specialty Start Date End Date Guerrero Middleton PA-C PCP - General Physician Workers Compensation Paralegal 02/13/18 documented as of this encounter
--- OUTSIDE RECORDS SUMMARY | 2024-05-03 21:59 | XMS_ITS | Encounter Summary ---
Author Organization [facility] Address [address] [place] [address] Care Team Providers Care City Director Name Role Phone Guerrero Middleton PA-C Primary Care Provide r Encounter Details Date Type Department Care Team (Late Contact Info) Description 04/04/2018 Orders Only [facility] Heart and Vascular At [place] [address] [place] [address] Marlys Mayer MD [address] [place] [address] [address] [place], [place] [id number] Hypertriglyceridemia; Type 2 diabetes mellitus without complication, [...] ([facility]) Heart and Vascular - [facility] [address] [place] [address] Marlys Mayer MD [address] [place], [place] [phone] documented as of this encounter Visit Diagnoses Diagnosis Hypertriglyceridemia Pure hyperglyceridemia Type 2 diabetes mellitus without complication, with long-term current use of insulin Pancreatitis, recurrent Chronic pancreatitis documented in this encounter Care Teams City Director Relationship Specialty Start Date End Date Guerrero Middleton PA-C PCP - General Physician Supervisor Transferring And Boxing 02/13/18 documented as of this encounter
--- OUTSIDE RECORDS SUMMARY | 2024-05-03 21:59 | XMS_ITS | Encounter Summary ---
Author Organization [facility] Address [address] [place] [address] Care Team Providers Care Tack Maker Name Role Phone Guerrero Middleton PA-C Primary Care Provide r Reason for Visit * Reason Comments Establish Care Encounter Details Date Type Department Care Team (Latest Contact Info) Description 03/06/2018 1:00 PM ELECTROPLATING SALES REPRESENTATIVE Office Visit [facility] At [address] [place] [phone] Marlys Mayer MD [address] [place] [address] [address] [place] [address] Hypertriglyceridemia (Primary Dx); Metabolic syndrome; [...] Comments Blood Pressure 136/90 03/06/2018 1:41 PM ELECTROPLATING SALES REPRESENTATIVE Pulse 104 03/06/2018 1:41 PM ELECTROPLATING SALES REPRESENTATIVE Temperature - - Respiratory Rate - - Oxygen Saturation 97% 03/06/2018 1:41 PM ELECTROPLATING SALES REPRESENTATIVE Inhaled Oxygen Concentration - - Weight 89.8 kg (198 lb) 03/06/2018 1:41 PM ELECTROPLATING SALES REPRESENTATIVE Height 165.1 cm (5' 5 ) 03/06/2018 1:41 PM ELECTROPLATING SALES REPRESENTATIVE Body Mass Index 32.95 03/06/2018 1:41 PM ELECTROPLATING SALES REPRESENTATIVE documented in this encounter Progress Notes * Marlys Mayer MD - 03/06/2018 2:08 PM CST [facility] Heart and Vascular New Patient Visit Casandra Faulkner, a 42 y.o. female, is a new patient establishing care with [facility] Heart and Vascular [facility] following problems: ICD-10-CM ICD-9-CM 1. Hypertriglyceridemia E78.1 [...] mg by mouth 2 times daily. ??? tbopeic-zmzyvb-vccmohxz 60-12-38 capsule Take by mouth 3 times daily. ??? insulin glargine (LANTUS) 100 unit/mL injection Inject 10 Units by subcutaneous injection 2 times daily. ??? niacin (NIACOR) 500 mg tablet Take 500 mg by mouth 2 times daily. ??? pantoprazole (PROTONIX) 40 mg Tablet, Delayed Release (E.C.) Take 40 mg by mouth daily. ??? ADQYT2V-ANC-QTW-OEIL OIL ORAL Take by mouth 4 times daily. ??? traZODone (DESYREL) 100 mg tablet Take 100 mg by mouth. ??? insulin aspart protamine-aspart (NovoLOG MIX 70-30) 100 unit/mL (70-30) pen syringe Inject by subcutaneous injection. ??? 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 TAKE WITHOUT FOOD 30 Tab 0 ??? [...] Years of education: N/A Occupational History ??? [employer] Social History Main Topics ??? Smoking status: [...] keep food journal and follow up with plastic boat buffer since this is essential part of controlling the triglyceride levels Follow-up with vb net developer since better diabetes control and correction of hypothyroidism will help control triglycerides Recommend GI consult to further evaluate chronic abdominal pain Labs today: Lipid panel, amylase, lipase, TSH, CK If trigs>500 add Vascepa 2 gms BID ( she reports not covered by insurance in past) If CK not elevated consider increasing statin TROPLATING SALES REPRESENTATIVE * Danisha Kemp RMA - 03/06/2018 1:44 PM CST No chest pain today she does have dizziness and swelling TROPLATING SALES REPRESENTATIVE documented in this encounter Procedure Notes * Marlys Mayer MD - 03/07/2018 1:29 PM CSTAssociated Order(s): EKG 12-LEAD Procedure(s): WV ECG ROUTINE ECG W/LEAST 12 LDS W/I&R Pre-Procedure Diagnose(s): Metabolic syndrome; Hypertriglyceridemia Sinus rhythm rate 95 bpm Possible left atrial enlargement Prolonged QTc ( 482 ms) Nonspecific ST/T changes TROPLATING SALES REPRESENTATIVE documented in this encounter Plan of Treatment Upcoming Encounters Date Type Department Care Team (Late st Contact Info) Description 09/14/2024 3:00 PM CDT Office Visit [facility] - [facility] [address] [place] [address] Marlys Mayer MD [address] [place] [address] documented as of this encounter Procedures Procedure Name Priority Date/Time Associated Diagnosis Comments WV ECG ROUTINE ECG W/LEAST 12 LDS W/I&R Routine 03/07/2018 1:29 PM ELECTROPLATING SALES REPRESENTATIVE Metabolic syndrome Hypertriglyceridemi a documented in this encounter Results * WV ECG ROUTINE ECG W/LEAST 12 LDS W/I&R (03/07/2018 1:29 PM ELECTROPLATING SALES REPRESENTATIVE) Narrative [facility] - 03/07/2018 1:29 PM ELECTROPLATING SALES REPRESENTATIVE Marlys Mayer MD ? 03/07/2018 ??1:32 PM Sinus rhythm rate 95 bpm Possible left atrial enlargement Prolonged QTc ( 482 ms) Nonspecific ST/T changes Procedure Note Marlys Mayer MD - 03/07/2018 1:29 PM CST Sinus rhythm rate 95 bpm Possible left atrial enlargement Prolonged QTc ( 482 ms) Nonspecific ST/T changes Marlys Mayer MD ECG ORDERABLES [facility] CLIA #[id number] [address] [place] [address] * CK (03/06/2018 3:01 PM ELECTROPLATING SALES REPRESENTATIVE) CK 88 20 - 180 U/L 03/06/2018 6:33 PM ELECTROPLATING SALES REPRESENTATIVE [facility] Blood Venipuncture / Unknown 03/06/2018 3:01 PM ELECTROPLATING SALES REPRESENTATIVE 03/06/2018 3:12 PM ELECTROPLATING SALES REPRESENTATIVE Marlys Mayer MD CHEMISTRY ORDERABLES [facility] [employer] [facility] CLIA# [id number] [address] [place] [address] * (ABNORMAL) LIPID PANEL (03/06/2018 3:01 PM ELECTROPLATING SALES REPRESENTATIVE) CHOLESTEROL 703(H) <200 mg/dL 03/06/2018 6:40 PM ELECTROPLATING SALES REPRESENTATIVE [facility] TRIGLYCERIDE 612(H) <150 mg/dL 03/06/2018 6:40 PM [facility] HDL 14(L) 40 - 59 mg/dL 03/06/2018 6:40 PM [facility] LDL CALCULATED <100 mg/dL 03/06/2018 6:40 PM [facility] Comment:Calculated LDL is no t accurate when the Triglyceride value exceeds 400. NON-HDL CHOLESTEROL 689(H) <130 mg/dL 03/06/2018 6:40 PM [facility] Blood Venipuncture / Unknown 03/06/2018 3:01 PM ELECTROPLATING SALES REPRESENTATIVE 03/06/2018 3:12 PM ELECTROPLATING SALES REPRESENTATIVE Narrative [facility] - 03/06/2018 6:40 PM ELECTROPLATING SALES REPRESENTATIVE TOTAL CHOLESTEROL ??mg/dL ??Desirable <200 ??Borderline high [...] Mayer MD CHEMISTRY ORDERABLES Performing Organization Address [facility]/ZIP Co de Phone Number [facility] CLWI# [id number] [address] [place] [address] * (ABNORMAL) TSH (03/06/2018 3:01 PM ELECTROPLATING SALES REPRESENTATIVE) Pathologist [facility] TSH 14.07(H) 0.27 - 4.20 uIU/mL 03/06/2018 7:15 PM ELECTROPLATING SALES REPRESENTATIVE [facility] Blood Venipuncture / Unknown 03/06/2018 3:01 PM ELECTROPLATING SALES REPRESENTATIVE 03/06/2018 3:12 PM ELECTROPLATING SALES REPRESENTATIVE Marlys Mayer MD CHEMISTRY ORDERABLES Performing Organization Address [facility]/ZIP Co de Phone Number [facility]# [id number] [address] [place] [address] * LIPASE (03/06/2018 3:01 PM ELECTROPLATING SALES REPRESENTATIVE) LIPASE 31 13 - 60 U/L 03/06/2018 6:33 PM ELECTROPLATING SALES REPRESENTATIVE [facility] Blood Venipuncture / Unknown 03/06/2018 3:01 PM ELECTROPLATING SALES REPRESENTATIVE 03/06/2018 3:12 PM ELECTROPLATING SALES REPRESENTATIVE Marlys Mayer MD CHEMISTRY ORDERABLES Performing Organization Address City/[facility]/ZIP Co de Phone Number [facility] CLIA# [id number] [address] [place] [address] * AMYLASE (03/06/2018 3:01 PM ELECTROPLATING SALES REPRESENTATIVE) AMYLASE 68 28 - 100 U/L 03/06/2018 6:33 PM [facility] [employer] [facility] Blood Venipuncture / Unknown 03/06/2018 3:01 PM ELECTROPLATING SALES REPRESENTATIVE 03/06/2018 3:12 PM ELECTROPLATING SALES REPRESENTATIVE Marlys Mayer MD CHEMISTRY ORDERABLES Performing Organization Address [facility] Co de Phone Number [facility] [employer] [facility]# [id number] [address] [place] [address] * (ABNORMAL) COMPREHENSIVE METABOLIC PANEL (03/06/2018 3:01 PM ELECTROPLATING SALES REPRESENTATIVE) SODIUM 131(L) 136 - 145 mmol/L 03/06/2018 7:57 PM [facility] [employer] [facility] POTASSIUM 4.5 3.5 - 5.0 mmol/L 03/06/2018 7:57 PM [facility] [email or web address] [facility] Comment: Slightly hemolyzed. Result may be falsely elevated. CHLORIDE 92(L) 98 - 107 mmol/L 03/06/2018 7:57 PM [facility] [employer] [facility]ORAT[facility] SERVICES [facility] CO2 24 22 - 29 mmol/L 03/06/2018 7:57 PM [facility] [employer] [facility] CALCIUM 9.4 8.6 - 10.2 mg/dL 03/06/2018 7:57 PM [facility] [employer] [facility] BUN 10 6 - 20 mg/dL 03/06/2018 7:57 PM [facility] [employer] [facility]ORAT[facility] CREATININE 0.47(L) 0.51 - 0.95 mg/dL 03/06/2018 7:57 PM [facility] [employer] [facility] GLUCOSE 148(H) 74 - 99 mg/dL 03/06/2018 7:57 PM [facility] [employer] [facility] TOTAL PROTEIN 7.5 6.7 - 8.6 g/dL 03/06/2018 7:57 PM [facility] [employer] [facility] ALBUMIN 4.5 3.5 - 5.2 g/dL 03/06/2018 7:57 PM [facility] [employer] [facility] BILIRUBIN TOTAL <0.2(L) 0.3 - 1.2 mg/dL 03/06/2018 7:57 PM [facility] [employer] [facility] ALKALINE PHOSPHATASE 61 35 - 104 U/L 03/06/2018 7:57 PM [facility] [email or web address] [facility] AST 19 <33 U/L 03/06/2018 7:57 PM [facility] [employer] [facility] Comment: Cleared of chylomicrons. Hemolysis present. Result may be falsely elevated. ALT 14 <34 U/L 03/06/2018 7:57 PM ELECTROPLATING SALES REPRESENTATIVE [employer] [facility] Comment:Cleared of chylomicr ons. GFR >60 >=60 mL/min/1.7 3 sq meter 03/06/2018 7:57 PM [facility] [email or web address] [facility] Comment: eGFR has not [...] mL/min/1.7 3 sq meter 03/06/2018 7:57 PM [facility] [employer] [facility] ANION GAP 15 8 - 16 mmol/L 03/06/2018 7:57 PM [facility] [email or web address] [facility] Blood Venipuncture / Unknown 03/06/2018 3:01 PM ELECTROPLATING SALES REPRESENTATIVE 03/06/2018 3:12 PM [facility] [employer] [facility] - 03/06/2018 7:57 PM ELECTROPLATING SALES REPRESENTATIVE Samples containing indocyanine green cause interferences on Total and/or Direct Bilirubin and must not be measured. Marlys Mayer MD CHEMISTRY ORDERABLES [facility]# [id number] [address] [address] documented in this encounter Visit Diagnoses Diagnosis Hypertriglyceridemia- Primary Pure hyperglyceridemia Metabolic syndrome Dysmetabolic Syndrome X Tobacco use Tobacco use disorder Abdominal pain, unspecified abdominal location Type 2 diabetes mellitus without complication, with long-term current use of insulin Metabolic syndrome Dysmetabolic Syndrome X Hypertriglyceridemia Pure hyperglyceridemia documented in this encounter Care Teams Tack Maker Relationship Specialty Start Date End Date Guerrero Middleton PA-C PCP - General Physician Hogshead Builder 02/13/18 documented as of this encounter
--- OUTSIDE RECORDS SUMMARY | 2024-05-03 21:59 | XMS_ITS | Encounter Summary ---
Author Organization [facility] Address [address] [place] [address] Care Team Providers Care Audio Visual Specialist Name Role Phone Guerrero Middleton PA-C Primary Care Provide r Reason for Visit * Auth/Cert Specialty Diagnoses / Procedures Referred By Contact Referred To Contact Critical Care Medicine Diagnoses severe triglyceridemia [facility] Transitional Care Unit [address] [place] [address] Referral ID Status Reason Start Date Expiration Date Visits Re quested Visits Authorized [id number] 1 1 Encounter Details Date Type Department Care Team (Latest Contact Info) Description 02/10/2018 10:23 PM CDT - 02/18/2018 5:15 PM CDT Hospital Encounter [facility] Oncology [address] [place] [address] Angie Louis MD [address] [address] Araceli Santo MD [address] [place] [address] Vlad Covarrubias MD [address] [place] [address] Odette Che MD [address] [address] Chylomicronemia syndrome Discharge Disposition: Home [...] Che MD - 02/18/2018 3:34 PM CDT [facility] Adult Hospitalist Discharge Summary Patient Name: Casandra Jones / 42 y.o. / female : 1975 Primary Care Physician: Guerrero Middleton PA-C Date of Admission: 02/10/2018 Date of Discharge : 02/18/2018 Admitting Diagnoses: Abdominal pain Discharge Diagnoses: Abdominal pain-unclear. No pancreatitis Hypertriglyceridemia-improved Diabetes type 2 GERD Hypothyroidism Anxiety/panic disorder MEDICATIONS Discharge medications and new prescriptions: Medication List CONTINUE taking these medications ldzzjme-iybsxm-izegjwsu 60-12-38 capsule Commonly known as: CREON 12 [...] SYNTHROID Take 1 Tablet by mouth daily test and turn up technician. Signed by: Odette Che MD Quantity: 30 [...] by mouth 2 times daily. Refills: 0 Fyxrh4-AjpO9-B36-E-FA-Fish Oil [phone] ps-lb-hnd-mcg Capsule Take 2 Caplets by mouth 2 [...] She was kept n.p.o. Triglyceridestrended down. Continued ELEVATOR OPERATOR SERVICE medication fish oil, niacin, fenofibrate and statin. [...] tablet Take 1 Tablet by mouth daily test and turn up technician. 30 Tablet 3 12/11/2017 04/10/2018 Bbixv9-SoeJ1-H63-E-FA-F bossman Oil [phone] nj-nv-zbs-mcg Capsule Take 2 Caplets by mouth 2 [...] daily as needed for Anxiety . 06/18/[address]-zvwkrk-unypicng DR (CRERUDI 12) 19-12-33 capsule Take by mouth 3 times daily after meals. 04/10/2018 fenofibrate nanocrystallized (TRICOR) 145 mg tablet Take 145 mg by mouth daily. 04/10/2018 citalopram (CeleXA) 40 mg tablet Take 40 mg by mouth daily at bedtime. 11/01/2020 levothyroxine (SYNTHROID) 137 mcg Oral tabletIndications:Unspe cified hypothyroidism Take 1 Tab by mouth daily test and turn up technician. TAKE WITHOUT FOOD 30 Tab 0 03/20/2013 [...] Thorpe NP - 02/17/2018 10:39 PM CDT [facility] Call Called for: Change BG [...] Covarrubias MD - 02/17/2018 1:53 PM CDT [facility] Adult Hospitalist Progress Note Admit Date: 02/10/2018 [...] indicated 2. DM2 - pt uses lantus/lispro ELEVATOR OPERATOR SERVICE, s/p insulin gtt as above, now off gtt will need to transition to SSI due to concern of hypoglycemia. Add basal if BS up 3. GERD - IV pepcid 4. Hypothryoidism - synthroid IV (100 mcg, changed to PO ELEVATOR OPERATOR SERVICE dosage 5. Anxiety/panic disorder - no celexa [...] were not included. CLINICAL DIETITIAN PROGRESS NOTE [facility] Nutrition Risk Screen A: [...] Wt 91.9 kg (202 lb 11.2 oz) LlH939% BMI 34.79 kg/m?? Documentation/Intervention/Outcome: - Chart reviewed. [...] Ativan given w no relief, [facility] * Vlad Covarrubias MD - 02/16/2018 4:05 PM CDT [facility] Adult Hospitalist Progress Note Admit Date: 02/10/2018 [...] flush 2. DM2 - pt uses lantus/lispro ELEVATOR OPERATOR SERVICE, s/p insulin gtt as above, now off gtt will need to transition to SSI due to concern of hypoglycemia. Add basal if BS up 3. GERD - IV pepcid 4. Hypothryoidism - synthroid IV (100 mcg, changed to PO ELEVATOR OPERATOR SERVICE dosage 5. Anxiety/panic disorder - no celexa [...] Covarrubias MD - 02/15/2018 12:10 PM CDT [facility] Adult Hospitalist Progress Note Admit Date: 02/10/2018 [...] flush 2. DM2 - pt uses lantus/lispro ELEVATOR OPERATOR SERVICE, s/p insulin gtt as above, now off gtt will need to transition to SSI due to concern of hypoglycemia. Add basal if BS up 3. GERD - IV pepcid 4. Hypothryoidism - synthroid IV (100 mcg, changed to PO ELEVATOR OPERATOR SERVICE dosage 5. Anxiety/panic disorder - no celexa [...] Davey PA - 02/15/2018 12:19 AM CDT [facility] Call Called for: pruritis Last Recorded Vitals: BP 103/58 (BP Location: Left arm, Patient Position (BP): Supine) Pulse 86 Temp 98.2 ??F (36.8 ??C) (Oral) Resp 16 Ht 5' 4 (1.626 m) Wt 91.9 kg (202 lb 11.2 oz) [id number]% BMI 34.79 kg/m?? Documentation/Intervention/Outcome: Chart reviewed. 42 [...] Covarrubias MD - 02/14/2018 12:21 PM CDT [facility] Adult Hospitalist Progress Note Admit Date: 02/10/2018 [...] understanding 2. DM2 - pt uses lantus/lispro ELEVATOR OPERATOR SERVICE, s/p insulin gtt as above, now off gtt will need to transition to SSI due to concern of hypoglycemia. Add basal if BS up 3. GERD - IV pepcid 4. Hypothryoidism - synthroid IV (100 mcg, changed to PO ELEVATOR OPERATOR SERVICE dosage 5. Anxiety/panic disorder - no celexa [...] and Assess performed by: Jovon Raman RN INSURANCE BILLING SPECIALIST Admission or upon transfer to: oncology ~~~~~~~~~~~~~~~~~~~~~~~~~~~~ [...] Covarrubias MD - 02/13/2018 2:54 PM CDT [facility] Adult Hospitalist Progress Note Admit Date: 02/10/2018 [...] down 2. DM2 - pt uses lantus/lispro ELEVATOR OPERATOR SERVICE, s/p insulin gtt as above, now off gtt will need to transition to SSI due to concern of hypoglycemia. Add basal if BS up 3. GERD - IV pepcid 4. Hypothryoidism - synthroid IV (100 mcg, changed to PO ELEVATOR OPERATOR SERVICE dosage 5. Anxiety/panic disorder - no celexa given NPO, cont with IV ativan PRN. 6. Debility: none 7. DVT Prophylaxis: Enoxaparin DVT Prophylaxis - Enoxaparin Pettit catheter:absent Lines: Peripheral IV PT POC OT POC Activity Order: Present Activity: in bed (02/13/18 8307) Current Code Status -Full Code Plan discussed with patient, questions answered. Current Planned Disposition - Tbd, can move to medicine. Discharge when TG < 800 Stable/Resolved Issues/Follow Up Needs Vlad Covarrubias MD * Demetra Garcia GN - 02/13/2018 4:54 AM CDT Patient complains of frequent pain in L abdominal region and frequent headaches. IV dilaudid and oral [place] given per JUN. Complained of some intermittent nausea during shift, reports relief with Zofran. Patient was able to rest throughout night. Will continue to monitor. * Vlad Covarrubias MD - 02/12/2018 5:05 PM CDT [facility] Adult Hospitalist Progress Note Admit Date: 02/10/2018 [...] hopefully improve with decreased TG. Hypertriglyceridemia -improving-down [id number] today, freq hypoglycemia while on insulin gtt, -d/w endo, off insulin gtt, keep her NPO and resume her HLD meds, already maximized 2. DM2 - pt uses lantus/lispro ELEVATOR OPERATOR SERVICE, s/p insulin gtt as above, now off gtt will need to transition to SSI due to concern of hypoglycemia. Add basal if BS up 3. GERD - IV pepcid 4. Hypothryoidism - synthroid IV (100 mcg, changed to PO ELEVATOR OPERATOR SERVICE dosage 5. Anxiety/panic disorder - no celexa [...] intake. Last triglyceride level 1,744 * Hedy Gueavra NP - 02/11/2018 10:59 PM CDT [facility] Virtual ospitalist Cross Cover Call Called for: request for tylenol for headache. Last Recorded Vitals: BP 99/62 (BP Location: Right arm, Patient Position (BP): Supine) Pulse 92 Temp 98.2 ??F (36.8 ??C) (Oral) Resp 18 Ht 5' 4 (1.626 m) Wt 91.9 kg (202 lb 11.2 oz) [id number]% BMI 34.79 kg/m?? Documentation/Intervention/Outcome: Chart reviewed. Order provided. Please call back any time if I can be of further assistance. Hedy Guevara NP Try our new night ticket system for vHospitalist calls. Submit an eTicket * Ericka Leone NP - 02/11/2018 8:22 PM CDT [facility] Called for: itching and flushed face Last Recorded Vitals: BP 99/62 (BP Location: Right arm, Patient Position (BP): Supine) Pulse 92 Temp 98.2 ??F (36.8 ??C) (Oral) Resp 18 Ht 5' 4 (1.626 m) Wt 91.9 kg (202 lb 11.2 oz) SwD1419% BMI 34.79 kg/m?? Documentation/Intervention/Outcome: Chart reviewed. Pt reporting itching and reported feeling flushed.No rash or redness noted per nurse. Benadryl PRN ordered. Please call back any time if I can be of further assistance. Ericka Leone NP Try our new night ticket system for vHospitalist calls. Submit an eTicket * Vlad Covarrubias MD - 02/11/2018 5:03 PM CDT [facility] Adult Hospitalist Progress Note Admit Date: 02/10/2018 [...] maximized 3. DM2 - pt uses lantus/lispro ELEVATOR OPERATOR SERVICE, s/p insulin gtt as above, now off gtt will need to transition to SSI due to concern of hypoglycemia. Add basal if BS up 4. GERD - IV pepcid 5. Hypothryoidism - synthroid IV (100 mcg, changed to PO ELEVATOR OPERATOR SERVICE dosage 6. Anxiety/panic disorder - no celexa [...] SADAF cannon Admission or upon transfer to: [place] [address] ~~~~~~~~~~~~~~~~~~~~~~~~~~~~ Is the patient a paraplegic/quadriplegic? Does [...] pants, hairs brush, shoes, wallet, cell phone, sales representative education courses, earrings, ring, cigarettes, hot water heater installer, Patient arrived to this room with the following medical equipment/devices (ie: insulin pump, home CPAP, walker): none All Jewelry removed from patient Patient refused Disposition of belongings/valuables: items in bag in patient closet, ring on pt left ring finger, earrings on pt. documented in this encounter H&P Notes * Araceli Santo MD - 02/10/2018 11:14 PM CDT [facility] Adult Hospitalist Admission H&P Date of [...] except for 3+ glucose. Upon arrival to [facility] pt complaining of pain and nausea. [...] times daily as needed for Anxiety . Iitqn6-WngV4-A07-E-FA-Fish Oil [id number] gq-fr-whr-mcg Capsule 02/10/2018 at Unknown time No Yes Sig: Take 2 Caplets by mouth 2 times daily. kqlknex-ktaxya-ravamcmh DR (CREON 12) 43-12 capsule Yes No Sig: Take by mouth [...] Sig: Take 1 Tablet by mouth daily test and turn up technician. magnesium oxide (MAG-OX) 400 mg tablet Yes [...] admission). 3. DM2 - pt uses lantus/lispro ELEVATOR OPERATOR SERVICE, will tx with insulin gtt as above, [...] Adult Hospitalist Physician 02/11/2018, 12:07 AM Pager: [phone] documented in this encounter Consult Notes * Blake Rudd MD - 02/11/2018 10:17 PM CDTAssociated Order(s): IP CONSULT TO ENDOCRINOLOGY Images from the original note were not included. [facility] INPATIENT DIABETES CONSULT NOTE [...] I saw her in October here at [facility]. We managed her conservatively with continuation [...] 160 mg at 02/11/18 163 ??? Fish Oil-Collins-3 Fatty Acids 360-1,200 mg capsule 2 Capsule [...] Daily BEDTIME Vlad Covarrubias MD ??? [DISCONTINUED] Sunir1-ZjdE8-L26-E-FA-Fish Oil [phone] td-dz-uoz-mcg Capsule 2 Caplet 2 Caplet Oral BID Vlad Covarrubias MD ??? [DISCONTINUED] fenofibrate nanocrystallized (TRICOR) tablet 145 mg 145 mg Oral Daily Vlad Covarrubias MD ??? [DISCONTINUED] Fish Oil-Collins-3 Fatty Acids 360-1,200 mg capsule 2 Capsule [...] hour Araceli Santo MD 40 mg at 02/11/18 1405 [...] for Registered Dietitians(RD) and Speech Language Pathologists (cyber defense analyst) [facility] Enter Orders ???per protocol?? in the EHR Policy: With the goal of providing the most efficient, effective and safe process for initiating or changing nutrition therapy as recommended by a Registered Dietitian (RD) or Speech Language Pathologist (PATTERN SCRATCHER). This protocol gives the RD or PATTERN SCRATCHER Order writing privileges within her/his scope of practice. Definitions: An RD is considered qualified to write orders that do not require a physician co-signature by: o Maintaining registration through the Commission on Dietetic Registration o Maintaining licensure through [place] Licensure. o Demonstrating Clinical Nutrition competency as verified by the Clinical Curriculum Designer initially and as part of the annual performance appraisal. A PATTERN SCRATCHER is considered qualified by virtue of: o Maintaining licensure as a PATTERN SCRATCHER in the state of [place] o Maintaining Certificate of Clinical Competency (CCC) as designated by the [place] Drjxcp-Ddngfufh-Iurxmcl Association o Demonstrating competency under the direction of the clinical services manager of PATTERN SCRATCHER at [facility] ([facility]) Responsibilities: 1. The Physician: o Has [...] oforder. 10/11/2009 [employer] Protocol 2. An PATTERN SCRATCHER may modify diet texture or liquid consistency according to the following guidelines: o Only texture modifications (with aspiration precautions) will be made (no nutritional modifications) o The PATTERN SCRATCHER will see the patient and make texture modifications only after being consulted by a physician or midlevel practitioner. o Diet will not be upgraded if GI contraindications are present unless given approval by the consulting physician or midlevel practitioner o Diet will not be changed if the patient is NPO unless given approval by physician or midlevel practitioner o cyber defense analyst will follow any diet restrictions posted in [...] [employer] Cross / The [facility] [place] [place] [facility] [address] Discussed discharge goals and possible discharge needs including home with spouse. No discharge needs identified at this time. Care Management contact information provided. Care Management will continue to follow and assist asneeded. Zahraa Latham bandage wrapping machine operator [phone] documented in this encounter Plan of Treatment Upcoming Encounters Date Type Department Care Team (Late st Contact Info) Description 09/14/2024 3:00 PM CDT Office Visit [facility] - [facility] [address] [address] [address] [place] [address] Mike Mayer MD [address] [place] [address] documented as of this encounter Procedures Procedure [...] - 99 mg/dL 02/18/2018 11:06 AM CDT [facility] SANDBLASTER STONE NAME POC JENNY ZIMMERMAN 02/18/2018 11:06 AM CDT [facility] Whole blood specimen (specimen) 02/18/2018 10:55 AM CDT 02/18/2018 11:06 AM CDT Odette Che MD POINT OF CARE TESTIN [facility] [id number] [address] [facility] [address] [place] [id number] * (ABNORMAL) TRIGLYCERIDE (02/18/2018 4:40 AM CDT) TRIGLYCERIDE 707(H) <150 mg/dL 02/18/2018 5:49 AM CDT [facility] Blood Venipuncture / Unknown 02/18/2018 4:40 AM CDT 02/18/2018 5:03 AM CDT Narrative [facility] - [facility] - 02/18/2018 5:49 AM CDT TRIGLYCERIDES ? mg/dL Normal ?< 150 Borderline High ?150 - 199 High ? 200 - 499 Very High ? >= 500 Based on AHA/NCEP Guidelines. Vlad Covarrubias MD CHEMISTRY ORDERABLES [facility] - [facility]# [id number] [address] [facility] [address] [place] [place] [address] * (ABNORMAL) BASIC METABOLIC PANEL (02/18/2018 4:40 AM CDT) SODIUM 141 136 - 145 mmol/L 02/18/2018 5:49 AM CDT [facility] SERVICES - [facility] POTASSIUM 3.8 3.5 - 5.0 mmol/L 02/18/2018 5:49 AM T [facility] - [facility] CHLORIDE 102 98 - 107 mmol/L 02/18/2018 5:49 AM T [facility] - [facility] CO2 27 22 - 29 mmol/L 02/18/2018 5:[address] [facility] - [facility] CALCIUM 9.2 8.6 - 10.2 mg/dL 02/18/2018 5:[address] [facility]ATORY SERVICES - [facility] BUN 5(L) 6 - 20 mg/dL 02/18/2018 5:49 AM T [facility] - [facility] CREATININE 0.68 0.51 - 0.95 mg/dL 02/18/2018 5:49 AM T [facility] - [facility] GLUCOSE 161(H) 74 - 99 mg/dL 02/18/2018 5:49 AM T [facility] - [facility] GFR >60 >=60 mL/min/1.7 3 sq meter 02/18/2018 5:49 AM T [facility] - [facility] Comment: eGFR [...] 3 sq meter 02/18/2018 5:49 AM CDT [facility] ANION GAP 12 8 - 16 mmol/L 02/18/2018 5:49 AM CDT [facility] Blood Venipuncture / Unknown 02/18/2018 4:40 AM CDT 02/18/2018 5:03 AM CDT Vlad Covarrubias MD CHEMISTRY ORDERABLES Performing Organization Address [facility] Co de Phone Number [facility]# [id number] [address] [facility] [place] [address] * (ABNORMAL) POC GLUCOSE (02/18/2018 12:32 AM CDT) [facility] Signature GLUCOSE POC 163(H) 74 - 99 mg/dL 02/18/2018 12:48 AM CDT [facility] SANDBLASTER STONE NAME POC JUANITA RAMIREZ 02/18/2018 12:48 AM CDT [facility] Whole blood specimen (specimen) 02/18/2018 12:32 AM CDT 02/18/2018 12:48 AM CDT Vlad Covarrubias MD POINT OF CARE TESTIN G Performing Organization Address [facility]/ZIP Co de Phone Number [facility]# [id number] [address] [facility] [place] [address] * (ABNORMAL) POC GLUCOSE (02/17/2018 7:59 PM CDT) GLUCOSE POC 120(H) 74 - 99 mg/dL 02/17/2018 8:10 PM CDT [facility] - [facility] COMMENT, GLU POC Notified RN/ 02/17/2018 8:10 PM CDT [facility] - [facility] SANDBLASTER STONE NAME POC SHAINA ROGERS 02/17/2018 8:10 PM CDT [facility] - [facility] Whole blood specimen (specimen) 02/17/2018 7:59 PM CDT 02/17/2018 8:10 PM CDT Vlad Covarrubias MD POINT OF CARE TESTIN G [facility] CLIA# [id number] [address] [place] [address] * (ABNORMAL) POC GLUCOSE (02/17/2018 6:50 PM CDT) GLUCOSE POC 136(H) 74 - 99 mg/dL 02/17/2018 7:02 PM CDT [facility] - [facility] COMMENT, GLU POC Notified BREANN 02/17/2018 7:02 PM CDT [facility] - [facility] SANDBLASTER STONE NAME POC CLIFFORD LOPEZ 02/17/2018 7:02 PM CDT [facility] - [facility] Whole blood specimen (specimen) 02/17/2018 6:50 PM CDT 02/17/2018 7:02 PM CDT Vlad Covarrubias MD POINT OF CARE TESTIN G [facility] [employer] CLNY# [id number] [address] [place] [address] * (ABNORMAL) POC GLUCOSE (02/17/2018 12:24 PM CDT) GLUCOSE POC 112(H) 74 - 99 mg/dL 02/17/2018 12:37 PM CDT [facility] COMMENT, GLU POC Notified BREANN 02/17/2018 12:37 PM CDT [facility]ORATORY SERVICES [facility] SANDBLASTER STONE NAME CLIFFORD ABREU 02/17/2018 12:37 PM CDT [facility] Whole blood specimen (specimen) 02/17/2018 12:24 PM CDT 02/17/2018 12:37 PM CDT Vlad Covarrubias MD POINT OF CARE TESTIN Performing Organization Address [facility]/ZIP Co de Phone Number [facility] CLIA# [id number] [address] [place] [address] * (ABNORMAL) POC GLUCOSE (02/17/2018 8:43 AM CDT) GLUCOSE POC 124(H) 74 - 99 mg/dL 02/17/2018 10:08 AM CDT [facility] COMMENT, GLU POC Notified RN/MD 02/17/2018 10:08 AM CDT [facility] SANDBLASTER STONE NAME CLIFFORD ABREU 02/17/2018 10:08 AM CDT [facility] Whole blood specimen (specimen) 02/17/2018 8:43 AM CDT 02/17/2018 10:08 AM CDT Vlad Covarrubias MD POINT OF CARE TESTJERONIMO Performing Organization Address [facility]/ZIP Co de Phone Number [facility] [employer]# [id number] [address] [place] [address] * (ABNORMAL) TRIGLYCERIDE (02/17/2018 4:22 AM CDT) TRIGLYCERIDE 853(H) <150 mg/dL 02/17/2018 5:40 AM CDT [facility] [employer] [facility] Blood Venipuncture / Unknown 02/17/2018 4:22 AM CDT 02/17/2018 5:05 AM CDT Narrative [facility] - 02/17/2018 5:40 AM CDT TRIGLYCERIDES ? mg/dL Normal ?< 150 Borderline High ?150 - 199 High ? 200 - 499 Very High ? >= 500 Based on AHA/NCEP Guidelines. Vlad Covarrubias MD CHEMISTRY ORDERABLES Performing Organization Address [facility] Phone Number [facility]# [id number] [address] [place] [address] * (ABNORMAL) POC GLUCOSE (02/17/2018 3:58 AM CDT) GLUCOSE POC 113(H) 74 - 99 mg/dL 02/17/2018 10:08 AM CDT [employer] [facility] COMMENT, GLU POC Notified RN/MD 02/17/2018 10:08 AM CDT [facility] SANDBLASTER STONE NAME POC SHAIAN ROGERS 02/17/2018 10:08 AM CDT [employer] [facility] Whole blood specimen (specimen) 02/17/2018 3:58 AM CDT 02/17/2018 10:08 AM CDT Vlad Covarrubias MD POINT OF CARE TESTIN G Performing Organization Address [facility] Phone Number [facility] [employer] [facility]# [id number] [facility] [place] [address] * (ABNORMAL) POC GLUCOSE (02/17/2018 12:29 AM CDT) GLUCOSE POC 117(H) 74 - 99 mg/dL 02/17/2018 12:41 AM CDT [facility] COMMENT, GLU POC Notified RN/MD 02/17/2018 12:41 AM CDT [facility] SANDBLASTER STONE NAME POC KEN SHAINA 02/17/2018 12:41 AM CDT [employer] [facility] Whole blood specimen (specimen) 02/17/2018 12:29 AM CDT 02/17/2018 12:41 AM CDT Vlad Covarrubias MD POINT OF CARE TESTIN G [facility] [id number] [address] [place] [address] * POC GLUCOSE (02/16/2018 8:25 PM CDT) GLUCOSE POC 94 74 - 99 mg/dL 02/16/2018 8:47 PM CDT [facility] SANDBLASTER STONE NAME POC JUANITA RAMIREZ 02/16/2018 8:47 PM CDT [facility] Whole blood specimen (specimen) 02/16/2018 8:25 PM CDT 02/16/2018 8:47 PM CDT Vlad Covarrubias MD POINT OF CARE TESTJERONIMO Serrano Performing Organization Address [facility]/ZIP Co de Phone Number [facility]# [id number] [address] [place] [address] * POC GLUCOSE (02/16/2018 4:05 PM CDT) GLUCOSE POC 91 74 - 99 mg/dL 02/16/2018 4:17 PM CDT [facility] SANDBLASTER STONE NAME POC KATI DUMONT 02/16/2018 4:17 PM CDT [facility] Whole blood specimen (specimen) 02/16/2018 4:05 PM CDT 02/16/2018 4:17 PM CDT Vlad Covarrubias MD POINT OF CARE TESTIN Maggie [facility] CLIA# [id number] [address] [place] [address] * POC GLUCOSE (02/16/2018 12:41 PM CDT) GLUCOSE POC 95 74 - 99 mg/dL 02/16/2018 12:57 PM CDT [facility] - [facility] SANDBLASTER STONE NAME POC KATI DUMONT 02/16/2018 12:57 PM CDT [facility] - [facility] Whole blood specimen (specimen) 02/16/2018 12:41 PM CDT 02/16/2018 12:57 PM CDT Vlad Covarrubias MD POINT OF CARE TESTIN G Performing Organization Address City/[facility]/ZIP Co de Phone Number [facility] CLIA# [id number] [address] [place] [address] * POC GLUCOSE (02/16/2018 9:24 AM CDT) GLUCOSE POC 84 74 - 99 mg/dL 02/16/2018 9:35 AM CDT [facility] SANDBLASTER STONE NAME POC MIKE SPAULDING 02/16/2018 9:35 AM CDT [facility] Whole blood specimen (specimen) 02/16/2018 9:24 AM CDT 02/16/2018 9:35 AM CDT Vlad Covarrubias MD POINT OF CARE TESTIN G [facility]# [id number] [address] [place] [address] * POC GLUCOSE (02/16/2018 4:50 AM CDT) GLUCOSE POC 95 74 - 99 mg/dL 02/16/2018 5:05 AM CDT [facility] COMMENT, GLU POC Notified RN/MD 02/16/2018 5:05 AM CDT [facility] - [facility] SANDBLASTER STONE NAME POC LLOYDRADHA VALE (ANA M BERTRAND) 02/16/2018 5:05 AM CDT [facility] Whole blood specimen (specimen) 02/16/2018 4:50 AM CDT 02/16/2018 5:05 AM CDT Vlad Covarrubias MD POINT OF CARE TESTIN Maggie [facility] CLIA# [id number] [address] [facility] [address] [place] [address] * (ABNORMAL) BASIC METABOLIC PANEL (02/16/2018 4:36 AM CDT) SODIUM 139 136 - 145 mmol/L 02/17/2018 12:[address] [facility] [employer] LABORATORY SERVICES - [facility] POTASSIUM 3.4(L) 3.5 - 5.0 mmol/L 02/17/2018 12:51 AM [facility] [employer] CHLORIDE 102 98 - 107 mmol/L 02/17/2018 12:51 AM [facility] [employer] CO2 20(L) 22 - 29 mmol/L 02/17/2018 12:51 AM [facility] [employer] CALCIUM 8.1(L) 8.6 - 10.2 mg/dL 02/17/2018 12:51 AM [facility] [employer] BUN 3(L) 6 - 20 mg/dL 02/17/2018 12:51 AM [facility] [employer] CREATININE 0.52 0.51 - 0.95 mg/dL 02/17/2018 12:51 AM [facility] [employer] GLUCOSE 96 74 - 99 mg/dL 02/17/2018 12:51 AM [facility] [employer] GFR >60 >=60 mL/min/1.7 3 sq meter 02/17/2018 12:[address] [facility] [employer] [facility] SERVICES - [facility] Comment: eGFR has [...] 3 sq meter 02/17/2018 12:51 AM CDT [facility] ANION GAP 17(H) 8 - 16 mmol/L 02/17/2018 12:51 AM CDT [facility] Blood Venipuncture / Unknown 02/16/2018 4:36 AM CDT 02/16/2018 4:39 AM CDT Vlad Covarrubias MD CHEMISTRY ORDERABLES [facility]# [id number] [address] [facility] [place] [address] * (ABNORMAL) LIPID PANEL (02/16/2018 4:36 AM CDT) CHOLESTEROL 340(H) <200 mg/dL 02/16/2018 5:20 AM CDT [facility] TRIGLYCERIDE 910(H) <150 mg/dL 02/16/2018 5:20 AM CDT [facility] HDL 25(L) 40 - 59 mg/dL 02/16/2018 5:20 AM T [facility] LDL CALCULATED <100 mg/dL 02/16/2018 5:20 AM T [facility] Comment:Calculated LDL is no t accurate when the Triglyceride value exceeds 400. NON-HDL CHOLESTEROL 315(H) <130 mg/dL 02/16/2018 5:20 AM T [facility] Blood Venipuncture / Unknown 02/16/2018 4:36 AM CDT 02/16/2018 4:39 AM CDT Narrative [facility] - 02/16/2018 5:20 AM CDT TOTAL CHOLESTEROL [...] Covarrubias MD CHEMISTRY ORDERABLES Performing Organization Address [facility]/ZIP Co de Phone Number [facility]# [id number] [address] [place] [id number] * (ABNORMAL) POC GLUCOSE (02/16/2018 12:24 AM CDT) GLUCOSE POC 101(H) 74 - 99 mg/dL 02/16/2018 12:35 AM CDT [facility] SANDBLASTER STONE NAME VALE RAO (ANA M BERTRAND) 02/16/2018 12:35 AM CDT [facility] Whole blood specimen (specimen) 02/16/2018 12:24 AM CDT 02/16/2018 12:35 AM CDT Vlad Covarrubias MD POINT OF CARE TESTIN G Performing Organization Address [facility]/ZIP Co de Phone Number [facility]# [id number] [address] [place] [address] * POC GLUCOSE (02/15/2018 8:43 PM CDT) GLUCOSE POC 84 74 - 99 mg/dL 02/15/2018 8:59 PM CDT [facility] COMMENT, GLU POC Notified RN/MD 02/15/2018 8:59 PM CDT [facility] SANDBLASTER STONE NAME VALE RAO (ANA M BERTRAND) 02/15/2018 8:59 PM CDT [facility] Whole blood specimen (specimen) 02/15/2018 8:43 PM CDT 02/15/2018 8:59 PM CDT Vlad Covarrubias MD POINT OF CARE TESTIN G [facility]# [id number] [address] [place] [address] * POC GLUCOSE (02/15/2018 5:04 PM CDT) GLUCOSE POC 92 74 - 99 mg/dL 02/15/2018 5:15 PM CDT [facility] SANDBLASTER STONE NAME POC LAURA MULLINS 02/15/2018 5:15 PM CDT [facility] Whole blood specimen (specimen) 02/15/2018 5:04 PM CDT 02/15/2018 5:15 PM CDT Vlad Covarrubias MD POINT OF CARE TESTIN G Performing Organization Address [facility]/ZIP Co de Phone Number [facility]# [id number] [address] [place] [address] * (ABNORMAL) POC GLUCOSE (02/15/2018 12:14 PM CDT) GLUCOSE POC 118(H) 74 - 99 mg/dL 02/15/2018 12:28 PM CDT [facility] SANDBLASTER STONE NAME POC LAURA MULLINS 02/15/2018 12:28 PM CDT [facility] Whole blood specimen (specimen) 02/15/2018 12:14 PM CDT 02/15/2018 12:28 PM CDT Vlad Covarrubias MD POINT OF CARE TESTIN G Performing Organization Address City/[facility]/ZIP Co de Phone Number [facility] CLIA# [id number] [address] [place] [address] * LIPASE (02/15/2018 11:07 AM CDT) LIPASE 15 13 - 60 U/L 02/15/2018 3:53 PM CDT [facility] Blood Venipuncture / Unknown 02/15/2018 11:07 AM CDT 02/15/2018 11:24 AM CDT Vlad Covarrubias MD CHEMISTRY ORDERABLES [facility] CLIA# [id number] [address] [place] [address] * (ABNORMAL) LIPID PANEL (02/15/2018 11:07 AM CDT) CHOLESTEROL 362(H) <200 mg/dL 02/15/2018 12:29 PM CDT [facility] TRIGLYCERIDE 1,083(H) <150 mg/dL 02/15/2018 12:29 PM T [facility] HDL 24(L) 40 - 59 mg/dL 02/15/2018 12:29 PM T [facility] LDL CALCULATED <100 mg/dL 02/15/2018 12:29 PM T [facility] Comment:Calculated LDL is no t accurate when the Triglyceride value exceeds 400. NON-HDL CHOLESTEROL 338(H) <130 mg/dL 02/15/2018 12:29 PM T [facility] Blood Venipuncture / Unknown 02/15/2018 11:07 AM CDT 02/15/2018 11:24 AM CDT Narrative [facility] - 02/15/2018 12:29 PM CDT TOTAL CHOLESTEROL [...] Covarrubias MD CHEMISTRY ORDERABLES Performing Organization Address [facility]/ZIP Co de Phone Number [facility] CLIA# [id number] [address] [place] [address] * (ABNORMAL) POC GLUCOSE (02/15/2018 8:10 AM CDT) GLUCOSE POC 106(H) 74 - 99 mg/dL 02/15/2018 8:22 AM CDT [employer] LABORATORY SERVICES [facility] SANDBLASTER STONE NAME POC LAURA MULLINS 02/15/2018 8:22 AM CDT [employer] [facility] Whole blood specimen (specimen) 02/15/2018 8:10 AM CDT 02/15/2018 8:22 AM CDT Vlad Covarrubias MD POINT OF CARE TESTIN G Performing Organization Address [facility] Co de Phone Number [facility] [id number] [address] [place] [place] [address] * (ABNORMAL) POC GLUCOSE (02/15/2018 4:30 AM CDT) GLUCOSE POC 106(H) 74 - 99 mg/dL 02/15/2018 4:44 AM CDT [facility] COMMENT, GLU POC Notified RN/MD 02/15/2018 4:44 AM CDT [facility] SANDBLASTER STONE NAME POC VALE NAVA (ANA M BERTRAND) 02/15/2018 4:44 AM CDT [facility] Whole blood specimen (specimen) 02/15/2018 4:30 AM CDT 02/15/2018 4:44 AM CDT Vlad Covarrubias MD POINT OF CARE TESTJERONIMO Serrano Performing Organization Address [facility]/ZIP Co de Phone Number [facility] CLIA# [id number] [address] [place] [address] * (ABNORMAL) POC GLUCOSE (02/15/2018 12:03 AM CDT) GLUCOSE POC 107(H) 74 - 99 mg/dL 02/15/2018 12:19 AM CDT [facility] SANDBLASTER STONE NAME POC VALE NAVA (ANA M BERTRAND) 02/15/2018 12:19 AM CDT [facility] Whole blood specimen (specimen) 02/15/2018 12:03 AM CDT 02/15/2018 12:19 AM CDT Vlad Covarrubias MD POINT OF CARE TESTJERONIMO Serrano Performing Organization Address [facility] Co de Phone Number [facility] CLIA# [id number] [address] [place] [address] * (ABNORMAL) POC GLUCOSE (02/14/2018 8:17 PM CDT) GLUCOSE POC 111(H) 74 - 99 mg/dL 02/14/2018 8:29 PM CDT [facility] COMMENT, GLU POC Notified RN/MD 02/14/2018 8:29 PM CDT [facility] SANDBLASTER STONE NAME POC VALE NAVA (ANA M BERTRAND) 02/14/2018 8:29 PM CDT [facility] Whole blood specimen (specimen) 02/14/2018 8:17 PM CDT 02/14/2018 8:29 PM CDT Vlad Covarrubias MD POINT OF CARE TESTJERONIMO Serrano [facility] [id number] [address] [place] [address] * (ABNORMAL) POC GLUCOSE (02/14/2018 4:29 PM CDT) GLUCOSE POC 102(H) 74 - 99 mg/dL 02/14/2018 4:48 PM CDT [facility] COMMENT, GLU POC Notified RN/MD 02/14/2018 4:48 PM CDT [facility] SANDBLASTER STONE NAME POC NATHALIE ESPINAL 02/14/2018 4:48 PM CDT [facility] Whole blood specimen (specimen) 02/14/2018 4:29 PM CDT 02/14/2018 4:48 PM CDT Vlad Covarrubias MD POINT OF CARE TESTJERONIMO Serrano Performing Organization Address [facility]/ZIP Co de Phone Number [facility]# [id number] [address] [place] [address] * (ABNORMAL) POC GLUCOSE (02/14/2018 11:54 AM CDT) GLUCOSE POC 103(H) 74 - 99 mg/dL 02/14/2018 12:11 PM CDT [facility] SANDBLASTER STONE NAME POC KATI DUMONT 02/14/2018 12:11 PM CDT [facility] Whole blood specimen (specimen) 02/14/2018 11:54 AM CDT 02/14/2018 12:11 PM CDT Vlad Covarrubias MD POINT OF CARE TESTJERONIMO Serrano [facility] CLIA# [id number] [address] [place] [address] * (ABNORMAL) POC GLUCOSE (02/14/2018 8:09 AM CDT) GLUCOSE POC 115(H) 74 - 99 mg/dL 02/14/2018 8:28 AM CDT [facility] SANDBLASTER STONE NAME POC KATI DUMONT 02/14/2018 8:28 AM CDT [facility] Whole blood specimen (specimen) 02/14/2018 8:09 AM CDT 02/14/2018 8:28 AM CDT Vlad Covarrubias MD POINT OF CARE TESTIN G [facility] CLIA# [id number] [address] [place] [address] * (ABNORMAL) POC GLUCOSE (02/14/2018 5:10 AM CDT) GLUCOSE POC 116(H) 74 - 99 mg/dL 02/14/2018 5:21 AM CDT [facility] COMMENT, GLU POC Notified RN/MD 02/14/2018 5:21 AM CDT [facility] SANDBLASTER STONE NAME POC JOVON YOUSIF 02/14/2018 5:21 AM CDT [facility] Whole blood specimen (specimen) 02/14/2018 5:10 AM CDT 02/14/2018 5:21 AM CDT Vlad Covarrubias MD POINT OF CARE TESTJERONIMO Serrano [facility] CLIA# [id number] [address] [place] [address] * (ABNORMAL) TRIGLYCERIDE (02/14/2018 4:25 AM CDT) TRIGLYCERIDE 1,330(H) <150 mg/dL 02/14/2018 5:43 AM CDT [facility] Blood Venipuncture / Unknown 02/14/2018 4:25 AM CDT 02/14/2018 4:49 AM CDT Narrative [employer] LABORATORY SERVICES - [facility] - 02/14/2018 5:43 AM CDT TRIGLYCERIDES ? mg/dL Normal ?< 150 Borderline High ?150 - 199 High ? 200 - 499 Very High ? >= 500 Based on AHA/NCEP Guidelines. Vlad Covarrubias MD CHEMISTRY ORDERABLES [facility] - [facility] CLIA# [id number] [address] [facility] [place] [place] [address] * (ABNORMAL) BASIC METABOLIC PANEL (02/14/2018 4:25 AM CDT) SODIUM 138 136 - 145 mmol/L 02/14/2018 5:30 AM CDT [employer] [facility] - [facility] POTASSIUM 3.9 3.5 - 5.0 mmol/L 02/14/2018 5:30 AM CDT [employer] [facility] - [facility] CHLORIDE 99 98 - 107 mmol/L 02/14/2018 5:30 AM CDT [employer] [facility] - [facility] CO2 24 22 - 29 mmol/L 02/14/2018 5:30 AM CDT [employer] [facility] - [facility] CALCIUM 9.0 8.6 - 10.2 mg/dL 02/14/2018 5:30 AM CDT [employer] [facility] - [facility] BUN 4(L) 6 - 20 mg/dL 02/14/2018 5:30 AM CDT [employer] [facility] - [facility] CREATININE 0.75 0.51 - 0.95 mg/dL 02/14/2018 5:30 AM CDT [employer] [facility] - [facility] GLUCOSE 117(H) 74 - 99 mg/dL 02/14/2018 5:30 AM CDT [employer] [facility] - [facility] GFR >60 >=60 mL/min/1.7 3 sq meter 02/14/2018 5:30 AM CDT [employer] [facility] Comment: eGFR [...] 3 sq meter 02/14/2018 5:30 AM CDT [facility] ANION GAP 15 8 - 16 mmol/L 02/14/2018 5:30 AM CDT [facility] Blood Venipuncture / Unknown 02/14/2018 4:25 AM CDT 02/14/2018 4:49 AM CDT Vlda Covarrubias MD CHEMISTRY ORDERABLES Performing Organization Address City/[facility]/ZIP Co de Phone Number [facility]# [id number] [address] [place] [address] * (ABNORMAL) POC GLUCOSE (02/13/2018 11:47 PM CDT) [facility] Signature GLUCOSE POC 116(H) 74 - 99 mg/dL 02/13/2018 11:59 PM CDT [facility] COMMENT, GLU POC Notified RN/ 02/13/2018 11:59 PM CDT [facility] SANDBLASTER STONE NAME POC JOVON YOUSIF 02/13/2018 11:59 PM CDT [facility] Whole blood specimen (specimen) 02/13/2018 11:47 PM CDT 02/13/2018 11:59 PM CDT Vlad Covarrubias MD POINT OF CARE TESTIN G Performing Organization Address [facility]/ZIP Co de Phone Number [facility] CLIA# [id number] [address] [place] [address] * (ABNORMAL) POC GLUCOSE (02/13/2018 8:03 PM CDT) GLUCOSE POC 109(H) 74 - 99 mg/dL 02/13/2018 8:19 PM CDT [facility] - [facility] COMMENT, GLU POC Notified RN/MD 02/13/2018 8:19 PM CDT [facility] - [facility] SANDBLASTER STONE NAME POC MOISÉS SALCIDO 02/13/2018 8:19 PM CDT [facility] Whole blood specimen (specimen) 02/13/2018 8:03 PM CDT 02/13/2018 8:19 PM CDT Vlad Covarrubias MD POINT OF CARE TESTIN G [facility] CLIA# [id number] [address] [place] [address] * (ABNORMAL) POC GLUCOSE (02/13/2018 3:53 PM CDT) GLUCOSE POC 104(H) 74 - 99 mg/dL 02/13/2018 4:06 PM CDT [facility] [employer] STONE NAME BRENNA LAMAS 02/13/2018 4:06 PM CDT [facility] Whole blood specimen (specimen) 02/13/2018 3:53 PM CDT 02/13/2018 4:06 PM CDT Vlad Covarrubias MD POINT OF CARE TESTIN G [facility] CLIA# [id number] [address] [place] [address] * (ABNORMAL) POC GLUCOSE (02/13/2018 12:00 PM CDT) GLUCOSE POC 122(H) 74 - 99 mg/dL 02/13/2018 12:13 PM CDT [facility] S[employer] STONE NAME POC BRENNA العلي 02/13/2018 12:13 PM CDT [facility] Whole blood specimen (specimen) 02/13/2018 12:00 PM CDT 02/13/2018 12:13 PM CDT Vlad Covarrubias MD POINT OF CARE TESTIN Maggie Performing Organization Address [facility]/ZIP Co de Phone Number [facility] CLIA# [id number] [address] [place] [address] * (ABNORMAL) POC GLUCOSE (02/13/2018 8:03 AM CDT) GLUCOSE POC 148(H) 74 - 99 mg/dL 02/13/2018 8:23 AM T [facility] SANDBLASTER STONE NAME POC BRENNA العلي 02/13/2018 8:23 AM T [facility] Whole blood specimen (specimen) 02/13/2018 8:03 AM CDT 02/13/2018 8:23 AM CDT Vlad Covarrubias MD POINT OF CARE TESTIN Maggie Performing Organization Address [facility]/ZIP Co de Phone Number [facility] CLIA# [id number] [address] [place] [address] * (ABNORMAL) LIPID PANEL (02/13/2018 6:05 AM CDT) CHOLESTEROL 438(H) <200 mg/dL 02/13/2018 7:00 AM T [facility] TRIGLYCERIDE 1,567(H) <150 mg/dL 02/13/2018 7:00 AM T [facility] HDL 40 - 59 mg/dL 02/13/2018 7:00 AM T [facility] Comment: Measured HDL is not accurate when the Triglyceride value exceeds 1200. LDL CALCULATED <100 mg/dL 02/13/2018 7:00 AM [facility] Comment:Calculated LDL is no t accurate when the Triglyceride value exceeds 400. NON-HDL CHOLESTEROL <130 mg/dL 02/13/2018 7:00 AM T [employer] [facility] Comment:Non HDL Cholesterol cannot be calculated when the HDL value is suppressed. Blood Venipuncture / Unknown 02/13/2018 6:05 AM CDT 02/13/2018 6:09 AM CDT Narrative [employer] - 02/13/2018 7:00 AM [...] Panels (NCEP/AMA) Vlad Covarrubias MD CHEMISTRY ORDERABLES [facility]# [id number] [address] [facility] [place] [address] * (ABNORMAL) BASIC METABOLIC PANEL (02/13/2018 6:05 AM CDT) SODIUM 135(L) 136 - 145 mmol/L 02/13/2018 6:47 AM T [employer] [facility] POTASSIUM 3.7 3.5 - 5.0 mmol/L 02/13/2018 6:47 AM T [employer] CHLORIDE 100 98 - 107 mmol/L 02/13/2018 6:47 AM T [employer] [facility] CO2 24 22 - 29 mmol/L 02/13/2018 6:47 AM T [facility] CALCIUM 8.8 8.6 - 10.2 mg/dL 02/13/2018 6:47 AM [facility] BUN 4(L) 6 - 20 mg/dL 02/13/2018 6:47 AM [facility] CREATININE 0.57 0.51 - 0.95 mg/dL 02/13/2018 6:47 AM [facility] GLUCOSE 140(H) 74 - 99 mg/dL 02/13/2018 6:47 AM [facility] GFR >60 >=60 mL/min/1.7 3 sq meter 02/13/2018 6:47 AM [facility] Comment: eGFR has not been [...] sq meter 02/13/2018 6:47 AM [facility] ANION GAP 11 8 - 16 mmol/L 02/13/2018 6:47 AM [facility] Blood Venipuncture / Unknown 02/13/2018 6:05 AM CDT 02/13/2018 6:09 AM CDT Vlad Covarrubias MD [facility]AB[id number] [address] [place] [address] * (ABNORMAL) POC GLUCOSE (02/13/2018 3:37 AM CDT) GLUCOSE POC 133(H) 74 - 99 mg/dL 02/13/2018 3:56 AM T [facility] SANDBLASTER STONE NAME POC DEMETRA GARCIA 02/13/2018 3:56 AM CDT [facility] Whole blood specimen (specimen) 02/13/2018 3:37 AM CDT 02/13/2018 3:56 AM CDT Vlad Covarrubias MD POINT OF CARE TESTIN G [facility] CLIA# [id number] [address] [place] [address] * (ABNORMAL) POC GLUCOSE (02/12/2018 11:43 PM CDT) GLUCOSE POC 124(H) 74 - 99 mg/dL 02/13/2018 12:01 AM CDT [facility] [employer] STONE NAME POC DEMETRA GARCIA 02/13/2018 12:01 AM CDT [facility] Whole blood specimen (specimen) 02/12/2018 11:43 PM CDT 02/13/2018 12:01 AM CDT Vlad Covarrubias MD POINT OF CARE TESTJERONIMO G Performing Organization Address [facility]/ZIP Co de Phone Number [facility] [employer]gram [facility] CLIA# [id number] [address] [place] [address] * (ABNORMAL) POC GLUCOSE (02/12/2018 9:13 PM CDT) GLUCOSE POC 143(H) 74 - 99 mg/dL 02/12/2018 9:36 PM CDT [facility] [employer] NAME POC DONNA FERRARO (SARBHJIT) 02/12/2018 9:36 PM CDT [facility] Whole blood specimen (specimen) 02/12/2018 9:13 PM CDT 02/12/2018 9:36 PM CDT Vlad Covarrubias MD POINT OF CARE TESTIN G [id number] [address] [place] [address] * (ABNORMAL) POC GLUCOSE (02/12/2018 3:46 PM CDT) GLUCOSE POC 122(H) 74 - 99 mg/dL 02/12/2018 4:03 PM CDT [facility] COMMENT, GLU POC Notified RN/ 02/12/2018 4:03 PM CDT [facility] [employer] NAME SHAINA CASTELLON 02/12/2018 4:03 PM CDT [facility] Whole blood specimen (specimen) 02/12/2018 3:46 PM CDT 02/12/2018 4:03 PM CDT Vlad Covarrubias MD POINT OF CARE TESTJERONIMO Serrano [facility]# [id number] [address] [place] [address] * (ABNORMAL) POC GLUCOSE (02/12/2018 12:16 PM CDT) GLUCOSE POC 124(H) 74 - 99 mg/dL 02/12/2018 12:29 PM CDT [facility] COMMENT, GLU POC Notified DEBORAH/ 02/12/2018 12:29 PM CDT [facility] SANDBLASTER STONE NAME SHAINA CASTELLON 02/12/2018 12:29 PM CDT [facility] Whole blood specimen (specimen) 02/12/2018 12:16 PM CDT 02/12/2018 12:28 PM CDT Vlad Covarrubias MD POINT OF CARE TESTIN Maggie [facility]# [id number] [address] [place] [address] * (ABNORMAL) POC GLUCOSE (02/12/2018 8:18 AM CDT) GLUCOSE POC 155(H) 74 - 99 mg/dL 02/12/2018 8:40 AM CDT [employer] [facility] SANDBLASTER STONE NAME POC SHAINA DIAZ 02/12/2018 8:40 AM CDT [facility] [facility] Whole blood specimen (specimen) 02/12/2018 8:18 AM CDT 02/12/2018 8:39 AM CDT Vlad Covarrubias MD POINT OF CARE TESTIN G [employer] SERVICES [facility]# [id number] [address] [facility] [place] [place] [address] * (ABNORMAL) BASIC METABOLIC PANEL (02/12/2018 4:20 AM CDT) SODIUM 138 136 - 145 mmol/L 02/12/2018 5:18 AM CDT [employer] [facility] POTASSIUM 3.8 3.5 - 5.0 mmol/L 02/12/2018 5:18 AM CDT [employer] [facility] CHLORIDE 103 98 - 107 mmol/L 02/12/2018 5:18 AM CDT [employer] LABORATORY SERVICES - [facility] CO2 24 22 - 29 mmol/L 02/12/2018 5:18 AM CDT [employer] [facility]ORY [facility] CALCIUM 7.9(L) 8.6 - 10.2 mg/dL 02/12/2018 5:18 AM CDT [employer] [facility] BUN 7 6 - 20 mg/dL 02/12/2018 5:18 AM CDT [employer] LABORATORY SERVICES - [facility] CREATININE 0.55 0.51 - 0.95 mg/dL 02/12/2018 5:18 AM CDT [employer] [facility] GLUCOSE 150(H) 74 - 99 mg/dL 02/12/2018 5:18 AM CDT [employer] [facility]ATORY [facility] GFR >60 >=60 mL/min/1.7 3 sq meter 02/12/2018 5:18 AM CDT [employer] [facility] Comment: eGFR has not been validated [...] 3 sq meter 02/12/2018 5:18 AM CDT [facility] ANION GAP 11 8 - 16 mmol/L 02/12/2018 5:18 AM T [facility] Blood Venipuncture / Unknown 02/12/2018 4:20 AM CDT 02/12/2018 4:25 AM CDT Vlad Covarrubias MD CHEMISTRY ORDERABLES Performing Organization Address City/State/[facility] Co de Phone Number [facility]# [id number] [address] [place] [address] * (ABNORMAL) LIPID PANEL (02/12/2018 4:20 AM CDT) CHOLESTEROL 428(H) <200 mg/dL 02/12/2018 5:29 AM [facility]gram [facility] TRIGLYCERIDE 1,744(H) <150 mg/dL 02/12/2018 5:29 AM [facility] copygram [facility] HDL 40 - 59 mg/dL 02/12/2018 5:29 AM [facility]gram [facility] Comment: Measured HDL is not accurate when the Triglyceride value exceeds 1200. LDL CALCULATED <100 mg/dL 02/12/2018 5:29 AM [facility] Comment:Calculated LDL is no t accurate when the Triglyceride value exceeds 400. NON-HDL CHOLESTEROL <130 mg/dL 02/12/2018 5:29 AM [facility] Comment:Non HDL Cholesterol cannot be calculated when the HDL value is suppressed. Blood Venipuncture / Unknown 02/12/2018 4:20 AM CDT 02/12/2018 4:25 AM CDT Narrative [facility] - 02/12/2018 5:29 AM CDT TOTAL CHOLESTEROL [...] Covarrubias MD CHEMISTRY ORDERABLES Performing Organization Address City/[facility]/ZIP Co de Phone Number [facility] CLIA# [id number] [address] [place] [address] * (ABNORMAL) POC GLUCOSE (02/12/2018 4:15 AM CDT) GLUCOSE POC 144(H) 74 - 99 mg/dL 02/12/2018 4:32 AM CDT [facility] SANDBLASTER STONE NAME POC GENEVA JASSO 02/12/2018 4:32 AM CDT [facility] Whole blood specimen (specimen) 02/12/2018 4:15 AM CDT 02/12/2018 4:32 AM CDT Vlad Covarrubias MD POINT OF CARE TESTIN G Performing Organization Address City/[facility]/ZIP Co de Phone Number [facility] CLIA# [id number] [address] [place] [address] * (ABNORMAL) POC GLUCOSE (02/12/2018 12:30 AM CDT) GLUCOSE POC 145(H) 74 - 99 mg/dL 02/12/2018 12:51 AM CDT [facility] SANDBLASTER STONE NAME POC GENEVA JASSO 02/12/2018 12:51 AM CDT [facility] Whole blood specimen (specimen) 02/12/2018 12:30 AM CDT 02/12/2018 12:51 AM CDT Vlad Covarrubias MD POINT OF CARE TESTIN G [facility]# [id number] [address] [facility] [place] [place] [address] * (ABNORMAL) TSH (02/11/2018 10:35 PM CDT) [facility] TSH 38.15(H) 0.27 - 4.20 uIU/mL 02/11/2018 11:16 PM CDT [facility] Blood Venipuncture / Unknown 02/11/2018 10:35 PM CDT 02/11/2018 10:39 PM CDT Blake Rudd MD CHEMISTRY ORDERA BLES [facility]# [id number] [address] [place] [address] * (ABNORMAL) POC GLUCOSE (02/11/2018 7:27 PM CDT) Pathologist [facility] GLUCOSE POC 119(H) 74 - 99 mg/dL 02/11/2018 7:40 PM CDT [facility] COMMENT, GLU POC Notified RN/ 02/11/2018 7:40 PM CDT [facility] SANDBLASTER STONE NAME POC DEIDRE HERNANDEZ 02/11/2018 7:40 PM CDT [facility] Whole blood specimen (specimen) 02/11/2018 7:27 PM CDT 02/11/2018 7:40 PM CDT Vlad Covarrubias MD POINT OF CARE TESTIN Maggie [facility] CLIA# [id number] [address] [place] [address] * (ABNORMAL) POC GLUCOSE (02/11/2018 4:26 PM CDT) GLUCOSE POC 119(H) 74 - 99 mg/dL 02/11/2018 4:38 PM CDT [facility] SANDBLASTER STONE NAME GÓMEZ GALLO 02/11/2018 4:38 PM CDT [facility] Whole blood specimen (specimen) 02/11/2018 4:26 PM CDT 02/11/2018 4:38 PM CDT Vlad Covarrubias MD POINT OF CARE TESTIN Maggie Performing Organization Address [facility]/ZIP Co de Phone Number [facility] CLIA# [id number] [address] [place] [address] * (ABNORMAL) POC GLUCOSE (02/11/2018 2:00 PM CDT) GLUCOSE POC 105(H) 74 - 99 mg/dL 02/11/2018 2:13 PM CDT [facility] SANDBLASTER STONE NAME GÓMEZ GALLO 02/11/2018 2:13 PM CDT [facility] Whole blood specimen (specimen) 02/11/2018 2:00 PM CDT 02/11/2018 2:13 PM CDT Vlad Covarrubias MD POINT OF CARE TESTIN Maggie [facility] CLIA# [id number] [address] [place] [address] * POC GLUCOSE (02/11/2018 12:07 PM CDT) GLUCOSE POC 94 74 - 99 mg/dL 02/11/2018 12:20 PM CDT [facility] - [facility] SANDBLASTER STONE NAME GENOVEVA GARCIA 02/11/2018 12:20 PM CDT [facility] Whole blood specimen (specimen) 02/11/2018 12:07 PM CDT 02/11/2018 12:20 PM CDT Vlad Covarrubias MD POINT OF CARE TESTIN G [facility] CLIA# [id number] [address] [place] [address] * (ABNORMAL) POC GLUCOSE (02/11/2018 11:45 AM CDT) GLUCOSE POC 100(H) 74 - 99 mg/dL 02/11/2018 11:58 AM CDT [facility] - [facility] SANDBLASTER STONE NAME GÓMEZ GALLO 02/11/2018 11:58 AM CDT [facility] Whole blood specimen (specimen) 02/11/2018 11:45 AM CDT 02/11/2018 11:58 AM CDT Vlad Covarrubias MD POINT OF CARE TESTIN G [facility] CLIA# [id number] [address] [place] [address] * (ABNORMAL) POC GLUCOSE (02/11/2018 11:15 AM CDT) GLUCOSE POC 59(L) 74 - 99 mg/dL 02/11/2018 11:36 AM CDT [facility] COMMENT, GLU POC To be Repeated 02/11/2018 11:36 AM CDT [facility] - [facility] SANDBLASTER STONE NAME POC GENOVEVA DELACRUZ 02/11/2018 11:36 AM CDT [facility] Whole blood specimen (specimen) 02/11/2018 11:15 AM CDT 02/11/2018 11:36 AM CDT Vlad Covarrubias MD POINT OF CARE TESTIN G [facility] CLIA# [id number] [address] [place] [address] * POC GLUCOSE (02/11/2018 9:39 AM CDT) GLUCOSE POC 92 74 - 99 mg/dL 02/11/2018 9:53 AM CDT [facility] SANDBLASTER STONE NAME POC GENOVEVA DELACRUZ 02/11/2018 9:53 AM CDT [facility] Whole blood specimen (specimen) 02/11/2018 9:39 AM CDT 02/11/2018 9:53 AM CDT Vlad Covarrubias MD POINT OF CARE TESTIN Maggie Performing Organization Address City/[facility]/ZIP Co de Phone Number [facility] CLIA# [id number] [address] [place] [address] * POC GLUCOSE (02/11/2018 8:54 AM CDT) GLUCOSE POC 96 74 - 99 mg/dL 02/11/2018 9:14 AM CDT [facility] SANDBLASTER STONE NAME POC ÓGMEZ NIELSON 02/11/2018 9:14 AM CDT [facility] Whole blood specimen (specimen) 02/11/2018 8:54 AM CDT 02/11/2018 9:14 AM CDT Vlad Covarrubias MD POINT OF CARE TESTIN Maggie [facility] CLIA# [id number] [address] [place] [address] * (ABNORMAL) POC GLUCOSE (02/11/2018 8:11 AM CDT) GLUCOSE POC 113(H) 74 - 99 mg/dL 02/11/2018 8:33 AM CDT [facility] SANDBLASTER STONE NAME POC CONNIE PHILLIPS 02/11/2018 8:33 AM CDT [facility] Whole blood specimen (specimen) 02/11/2018 8:11 AM CDT 02/11/2018 8:33 AM CDT Vlad Covarrubias MD POINT OF CARE TESTJERONIMO Serrano [facility] CLIA# [id number] [address] [place] [address] * (ABNORMAL) POC GLUCOSE (02/11/2018 7:52 AM CDT) GLUCOSE POC 58(L) 74 - 99 mg/dL 02/11/2018 8:05 AM CDT [facility] COMMENT, GLU POC Repeated Glucose 02/11/2018 8:05 AM CDT [facility] COMMENT 2, GLU POC Notified RN/MD 02/11/2018 8:05 AM CDT [facility] SANDBLASTER STONE NAME POC GÓMEZ NIELSON 02/11/2018 8:05 AM CDT [facility] Whole blood specimen (specimen) 02/11/2018 7:52 AM CDT 02/11/2018 8:05 AM CDT Vlad Covarrubias MD POINT OF CARE TESTJERONIMO Serrano [facility] CLIA# [id number] [address] [place] [address] * (ABNORMAL) POC GLUCOSE (02/11/2018 7:34 AM CDT) GLUCOSE POC 70(L) 74 - 99 mg/dL 02/11/2018 7:46 AM CDT [facility] SANDBLASTER STONE NAME POC GÓMEZ NIELSON 02/11/2018 7:46 AM CDT [facility] Whole blood specimen (specimen) 02/11/2018 7:34 AM CDT 02/11/2018 7:46 AM CDT Vlad Covarrubias MD POINT OF CARE TESTIN G [facility] CLIA# [id number] [address] [place] [address] * (ABNORMAL) POC GLUCOSE (02/11/2018 6:24 AM CDT) GLUCOSE POC 106(H) 74 - 99 mg/dL 02/11/2018 6:36 AM CDT [facility] SANDBLASTER STONE NAME POC MARIA VICTORIA AREVALO 02/11/2018 6:36 AM CDT [facility] LAB[facility]ATORY [facility] Whole blood specimen (specimen) 02/11/2018 6:24 AM CDT 02/11/2018 6:36 AM CDT Araceli Santo MD POINT OF CARE TEST ING Performing Organization Address [facility]/ZIP Co de Phone Number [facility] CLIA# [id number] [address] [place] [address] * (ABNORMAL) CBC WITH DIFFERENTIAL (02/11/2018 5:08 AM CDT) WBC 6.5 4.0 - 9.8 K/uL 02/11/2018 5:25 AM CDT [employer]ATORY [facility] RBC 3.87(L) 3.90 - 4.90 M/uL 02/11/2018 5:25 AM CDT [employer] [facility] HEMOGLOBIN 11.7(L) 11.8 - 14.8 g/dL 02/11/2018 5:25 AM CDT [employer] LABORATORY SERVICES - . [facility] HEMATOCRIT 35.7 35.5 - 44.0 % 02/11/2018 5:25 AM CDT [facility]ATORY SERVICES - [facility] MCV 92.2 82.0 - 99.0 fL 02/11/2018 5:25 AM CDT [employer] [facility] LABORATORY SERVICES - [facility] MCH 30.2 27.2 - 32.6 pg 02/11/2018 5:25 AM T [employer] [facility] LABORATORY SERVICES - . [facility] MCHC 32.8 31.5 - 35.5 g/dL 02/11/2018 5:25 AM CDT [facility]ATORY SERVICES - [facility] RDW 14.1 11.5 - 14.5 % 02/11/2018 5:25 AM CDT [facility]ATORY SERVICES - [facility] RDW-STDEV 47.4 37.1 - 48.7 fL 02/11/2018 5:25 AM [employer] LABORATORY SERVICES - . [facility] PLATELETS 207 140 - 350 K/uL 02/11/2018 5:25 AM [employer] LABORATORY SERVICES - . [facility] MPV 9.2(L) 9.3 - 12.4 fL 02/11/2018 5:25 AM [employer] LAB[facility]ATORY SERVICES - [facility] NEUTROPHILS 53 % 02/11/2018 5:25 AM [employer] [facility]ATORY SERVICES - [facility] LYMPHOCYTES 40 % 02/11/2018 5:25 AM [employer] [facility]ORY SERVICES [facility] MONOCYTES 5 % 02/11/2018 5:25 AM [employer] [facility]ATORY SERVICES - [facility] EOSINOPHILS 1 % 02/11/2018 5:25 AM [employer] [facility]ATORY SERVICES - [facility] BASOPHILS 0 % 02/11/2018 5:25 AM [employer] LAB[facility]ATORY SERVICES - [facility] IMMATURE GRANULOCYTES 1 % 02/11/2018 5:25 AM [employer] [facility]ORY [facility] Comment:IG (Immature Granulo cyte) count includes Metamyelocytes, Myelocytes, and Promyelocytes NEUTROPHIL ABSOLUTE 3.48 1.90 - 7.00 K/uL 02/11/2018 5:25 AM CDT [facility] LABORATORY SERVICES - [facility] LYMPHOCYTE ABSOLUTE 2.60 0.70 - 4.50 K/uL 02/11/2018 5:25 AM CDT [facility] [facility] LAB[facility]ATORY SERVICES - [facility] MONOCYTE ABSOLUTE 0.32 0.10 - 1.30 K/uL 02/11/2018 5:25 AM CDT [facility] EOSINOPHIL ABSOLUTE 0.07 0.00 - 0.70 K/uL 02/11/2018 5:25 AM CDT [facility] BASOPHILS ABSOLUTE 0.02 0.00 - 0.20 K/uL 02/11/2018 5:25 AM CDT [facility] IMMATURE GRANULOCYTES ABSOLUTE 0.05(H) 0.00 - 0.03 K/uL 02/11/2018 5:25 AM CDT [facility] Blood Venipuncture / Unknown 02/11/2018 5:08 AM CDT 02/11/2018 5:13 AM CDT Araceli Santo MD HEMATOLOGY ORDERAB LES [facility]# [id number] [address] [facility] [place] [address] * (ABNORMAL) LIPID PANEL (02/11/2018 5:07 AM CDT) [facility] CHOLESTEROL 488(H) <200 mg/dL 02/11/2018 8:58 AM T [facility] TRIGLYCERIDE 2,142(H) <150 mg/dL 02/11/2018 8:58 AM T [facility] HDL 40 - 59 mg/dL 02/11/2018 8:58 AM T [facility] Comment: Measured HDL is not accurate when the Triglyceride value exceeds 1200. LDL CALCULATED <100 mg/dL 02/11/2018 8:58 AM T [facility] Comment:Calculated LDL is no t accurate when the Triglyceride value exceeds 400. NON-HDL CHOLESTEROL <130 mg/dL 02/11/2018 8:58 AM T [facility] Comment:Non HDL Cholesterol cannot be calculated when the HDL value is suppressed. Blood Venipuncture / Unknown 02/11/2018 5:07 AM CDT 02/11/2018 5:13 AM CDT Narrative [facility] - [facility] - 02/11/2018 [...] Panels (NCEP/AMA) Vlad Covarrubias MD CHEMISTRY ORDERABLES [facility] SERVICES [facility] CLNY# [id number] [address] [facility] [place] [address] * (ABNORMAL) BASIC METABOLIC PANEL (02/11/2018 5:07 AM CDT) SODIUM 138 136 - 145 mmol/L 02/11/2018 5:45 AM CDT [facility] LABORATORY SERVICES - . [facility] POTASSIUM 3.1(L) 3.5 - 5.0 mmol/L 02/11/2018 5:45 AM CDT [facility] LABORATORY SERVICES - [facility] CHLORIDE 98 98 - 107 mmol/L 02/11/2018 5:45 AM CDT [facility] LABORATORY SERVICES - [facility] CO2 26 22 - 29 mmol/L 02/11/2018 5:45 AM CDT [facility]ATORY SERVICES - [facility] CALCIUM 8.5(L) 8.6 - 10.2 mg/dL 02/11/2018 5:45 AM CDT [facility] LABORATORY SERVICES - [facility] BUN 8 6 - 20 mg/dL 02/11/2018 5:45 AM CDT [facility] LABORATORY SERVICES - [facility] CREATININE 0.56 0.51 - 0.95 mg/dL 02/11/2018 5:45 AM CDT [facility] LABORATORY SERVICES - . [facility] GLUCOSE 84 74 - 99 mg/dL 02/11/2018 5:45 AM CDT [facility] GFR >60 >=60 mL/min/1.7 3 sq meter 02/11/2018 5:45 AM CDT [facility] Comment: eGFR has not been validated [...] 3 sq meter 02/11/2018 5:45 AM CDT [facility] ANION GAP 14 8 - 16 mmol/L 02/11/2018 5:45 AM CDT [facility] Blood Venipuncture / Unknown 02/11/2018 5:07 AM CDT 02/11/2018 5:13 AM CDT Araceli Santo MD CHEMISTRY ORDERABL ES Performing Organization Address City/[facility] Co de Phone Number [facility]# [id number] [address] [facility] [place] [address] * POC GLUCOSE (02/11/2018 5:03 AM CDT) GLUCOSE POC 77 74 - 99 mg/dL 02/11/2018 6:00 AM CDT [facility] SANDBLASTER STONE NAME POC JUANY DONNA 02/11/2018 6:00 AM CDT [facility] Whole blood specimen (specimen) 02/11/2018 5:03 AM CDT 02/11/2018 6:00 AM CDT Araceli Santo MD POINT OF CARE TEST ING [facility] SERVICES [facility] CLIA# [id number] [address] [place] [address] * (ABNORMAL) POC GLUCOSE (02/11/2018 4:22 AM CDT) GLUCOSE POC 107(H) 74 - 99 mg/dL 02/11/2018 4:34 AM CDT [facility] SANDBLASTER STONE NAME POC MARIA VICTORIA AREVALO 02/11/2018 4:34 AM CDT [facility] Whole blood specimen (specimen) 02/11/2018 4:22 AM CDT 02/11/2018 4:34 AM CDT Araceli Santo MD POINT OF CARE TEST ING Performing Organization Address City/[facility]/ZIP Co de Phone Number [facility] CLIA# [id number] [address] [place] [address] * POC GLUCOSE (02/11/2018 4:04 AM CDT) GLUCOSE POC 93 74 - 99 mg/dL 02/11/2018 4:16 AM CDT [facility] COMMENT, GLU POC Notified RN/MD 02/11/2018 4:16 AM CDT [facility] SANDBLASTER STONE NAME POC DONNA HARRINGTON 02/11/2018 4:16 AM CDT [facility] Whole blood specimen (specimen) 02/11/2018 4:04 AM CDT 02/11/2018 4:16 AM CDT Araceli Santo MD POINT OF CARE TEST ING [facility] CLIA# [id number] [address] [place] [address] * POC GLUCOSE (02/11/2018 3:12 AM CDT) GLUCOSE POC 76 74 - 99 mg/dL 02/11/2018 3:28 AM CDT [facility] COMMENT, GLU POC Notified RN/MD 02/11/2018 3:28 AM CDT [facility] SERVICES - [facility] COMMENT 2, GLU POC Repeated Glucose 02/11/2018 3:28 AM CDT [facility] SANDBLASTER STONE NAME POC DONNA HARRINGTON 02/11/2018 3:28 AM CDT [facility] Whole blood specimen (specimen) 02/11/2018 3:12 AM CDT 02/11/2018 3:28 AM CDT Araceli Santo MD POINT OF CARE TEST ING Performing Organization Address [facility] Co de Phone Number [facility] CLIA# [id number] [address] [place] [address] * (ABNORMAL) POC GLUCOSE (02/11/2018 2:02 AM CDT) GLUCOSE POC 117(H) 74 - 99 mg/dL 02/11/2018 2:13 AM CDT [facility] SANDBLASTER STONE NAME POC MARIA VICTORIA AREVALO 02/11/2018 2:13 AM CDT [facility] Whole blood specimen (specimen) 02/11/2018 2:02 AM CDT 02/11/2018 2:13 AM CDT Araceli Santo MD POINT OF CARE TEST ING Performing Organization Address [facility]/ZIP Co de Phone Number [facility] CLIA# [id number] [address] [place] [address] * (ABNORMAL) POC GLUCOSE (02/11/2018 12:40 AM CDT) GLUCOSE POC 151(H) 74 - 99 mg/dL 02/11/2018 1:33 AM CDT [facility] SANDBLASTER STONE NAME POC MARIA VICTORIA AREVALO 02/11/2018 1:33 AM CDT [facility] Whole blood specimen (specimen) 02/11/2018 12:40 AM CDT 02/11/2018 1:33 AM CDT Araceli Santo MD POINT OF CARE TEST ING [facility] CLIA# [id number] [address] [facility] [place] [address] * (ABNORMAL) LIPID PANEL (02/10/2018 11:53 PM CDT) CHOLESTEROL 474(H) <200 mg/dL 02/11/2018 1:01 AM T [facility] TRIGLYCERIDE 2,540(H) <150 mg/dL 02/11/2018 1:01 AM T [facility] HDL 40 - 59 mg/dL 02/11/2018 1:01 AM T [facility] Comment: Measured HDL is not accurate when the Triglyceride value exceeds 1200. LDL CALCULATED <100 mg/dL 02/11/2018 1:01 AM T [facility] Comment:Calculated LDL is no t accurate when the Triglyceride value exceeds 400. NON-HDL CHOLESTEROL <130 mg/dL 02/11/2018 1:01 AM T [facility] Comment:Non HDL Cholesterol cannot be calculated when the HDL value is suppressed. Blood Venipuncture / Unknown 02/10/2018 11:53 PM CDT 02/10/2018 11:56 PM CDT Narrative [facility] - 02/11/2018 1:01 AM CDT TOTAL CHOLESTEROL [...] (NCEP/AMA) Araceli Santo MD CHEMISTRY ORDERABL ES [facility]# [id number] 5 [facility] [place] [id number] documented in this encounter Visit Diagnoses Diagnosis [...] 02/16/2018 9:27 AM CDT 160 mg Fish Oil-Collins-3 Fatty Acids 360-1,200 mg capsule 2 Capsule [...] 0821 (Given - Provider: BLAISE Walters) Fish Oil-Collins-3 Fatty Acids 360-1,200 mg capsule 2 Capsule [...] RN) documented in this encounter Care Teams Audio Visual Specialist Relationship Specialty Start Date End Date Guerrero Middleton PA-C PCP - General Physician Manager Mining 02/13/18 documented as of this encounter
--- OUTSIDE RECORDS SUMMARY | 2024-05-03 21:59 | XMS_ITS | Encounter Summary ---
Author Organization [facility] Address [address] [place] [address] Care Team Providers Care Roulette Dealer Name Role Phone Guerrero Middleton PA-C Primary Care Provide r Reason for Visit * Reason Onset Date Comments pt had bw at lab [facility] 04/03/2018 Encounter Details Date Type Department Care Team (Late st Contact Info) Description 04/03/2018 Telephone [facility] Heart and Vascular At [facility] [address] [place] [address] Marlys Mayer MD [address] [place] [address] [address] [place] [address] pt had bw at lab [facility] Social History Tobacco Use Types Packs/Day Years [...] Tita Jessica RMA - 04/04/2018 10:39 AM GUT PULLER Records received and scanned. PULLER * Telephone Encounter - Tita Jessica RMA - 04/03/2018 4:42 PM GUT PULLER Spoke to merchandising representative at [facility] and they will send the results 1st thing in the morning. PULLER * Telephone Encounter - Betty House - 04/03/2018 2:52 PM CST Pt had bw done at [facility] in [facility]. She said that [place] wanted it mali PULLER documented in this encounter Plan of Treatment Upcoming Encounters Date Type Department Care Team (Late st Contact Info) Description 09/14/2024 3:00 PM CDT Office Visit [facility] Heart and Vascular - [place] [address] [place] [address] Marlys Mayer MD [address] [place] [address] documented as of this encounter Visit Diagnoses Not on filedocumented in this encounter Care Teams Roulette Dealer Relationship Specialty Start Date End Date Guerrero Middleton PA-C PCP - General Physician Shaving Machine Operator 02/13/18 documented as of this encounter
--- OUTSIDE RECORDS SUMMARY | 2024-05-03 22:00 | XMS_ITS | Encounter Summary ---
Author Organization [facility] Address [address] [place] [address] Care Team Providers Care Auto Body Mechanic Apprentice Name Role Phone Unavailable Primary Care Provider Unavailabl e Reason for Visit * Reason Onset Date Comments Medication Question 05/30/2011 Encounter Details Date Type Department Care Team (Late st Contact Info) Description 05/30/2011 Telephone [facility] Endocrinology [address] [place] [address] Shira Olivo, shipping services sales representative Question Social History Tobacco Use Types Packs/Day [...] -knows not to do the lipids yet ATION SUPERVISOR * Telephone Encounter - Prudence Gates MD - 05/30/2011 3:40 PM OPERATION SUPERVISOR Hold metformin Order for a TSH please Those symptoms are not usual for these meds but everything is possible. Thank you ATION SUPERVISOR * Telephone Encounter - Shira Olivo RN - 05/30/2011 1:10 PM CST Pt called started on metformin, synthroid ,vit D She c/o light headedness dizzy shakey which starts 1 hr after eats( meal size doesnt matter) Also has CORTES AND nose bleeds She is not having any gi sx ATION SUPERVISOR documented in this encounter Plan of Treatment Upcoming Encounters Date Type Department Care Team (Late st Contact Info) Description 09/14/2024 3:00 PM CDT Office Visit [facility] Heart [facility] [address] [place] [address] Marlys Mayer MD [address] [place] [address] documented as of this encounter Visit Diagnoses Not on filedocumented in this encounter
--- OUTSIDE RECORDS SUMMARY | 2024-05-03 22:00 | XMS_ITS | Encounter Summary ---
Author Organization [facility] Address [address] [place] [address] Care Team Providers Care Rating Specialist Name Role Phone Unavailable Primary Care Provider Unavailabl e Reason for Referral * Outpatient Services (Routine) - Closed Specialty Diagnoses / Procedures Referred By Tequila bowman Referred To Contact MRI Diagnoses Metabolic syndrome History of gestational diabetes PCOS (polycystic ovarian syndrome) Adrenal mass Familial combined hyperlipidemia Hypothyroidism Procedures MRI ABDOMEN W WO CONTRAST Prudence Gates MD [address] [address] Referral ID Status Reason Start Date Expiration Date Visits Re quested Visits Authorized [id number] Closed 05/15/2011 05/14/2012 1 1 AIGN CONSULTANT Reason for Visit * Outpatient Services (Routine) - Closed Specialty Diagnoses / Procedures Referred By Tequila bowman Referred To Contact MRI Diagnoses Metabolic syndrome History of gestational diabetes PCOS (polycystic ovarian syndrome) Adrenal mass Familial combined hyperlipidemia Hypothyroidism Procedures MRI ABDOMEN W WO CONTRAST Prudence Gates MD [address] [address] Referral ID Status Reason Start Date Expiration Date Visits Re quested Visits Authorized [id number] Closed 05/15/2011 05/14/2012 1 1 Encounter Details Date Type Department Care Team (Latest Contact Info) Description 05/25/2011 7:45 AM CAMPAIGN CONSULTANT - 05/25/2011 11:59 PM CAMPAIGN CONSULTANT Hospital Encounter [place] [facility] MRI [address] [place] [address] Prudence Gates MD [address] [place] [address] Discharge Disposition: Home or Self Care Social [...] 88.9 kg (196 lb) 05/25/2011 8:24 AM CAMPAIGN CONSULTANT Height - - Body Mass Index 33.64 05/15/2011 10:58 AM CAMPAIGN CONSULTANT documented in this encounter Medications at Time [...] dism Take 1 Tab by mouth daily services delivery driver. TAKE WITHOUT FOOD 60 Tab 0 05/15/2011 06/05/2011 documented as of this encounter Miscellaneous Notes * Scanned Form - Stl Scanning, [facility] - 06/10/2011 5:45 PM CST AIGN CONSULTANT documented in this encounter Plan of Treatment Upcoming Encounters Date Type Department Care Team (Late st Contact Info) Description 09/14/2024 3:00 PM CDT Office Visit [facility] Heart and Vascular - [place] [address] [place] [address] Marlys aMyer MD [address] [place] [address] documented as of this encounter Procedures Procedure Name Priority Date/Time Associated Diagnosis Comments MRI ABDOMEN W WO CONTRAST Routine 05/25/2011 8:29 AM CAMPAIGN CONSULTANT Metabolic syndrome History of gestational diabetes PCOS (polycystic ovarian syndrome) Adrenal mass Familial combined hyperlipidemia Hypothyroidism documented in this encounter Results * MRI ABDOMEN W WO CONTRAST (05/25/2011 8:29 AM CAMPAIGN CONSULTANT) Anatomical Region Laterality Modality Abdomen Magnetic Resonan ce 05/25/2011 7:50 AM CAMPAIGN CONSULTANT Impressions 05/25/2011 4:47 PM CAMPAIGN CONSULTANT IMPRESSION: 1. Normal adrenals. No evidence [...] is recommended. ?? Narrative 05/25/2011 4:47 PM CAMPAIGN CONSULTANT MRI ABDOMEN WITH AND WITHOUT IV [...] at 0825, Routine Given 05/25/2011 8:25 AM CAMPAIGN CONSULTANT 18 mL documented in this encounter
--- OUTSIDE RECORDS SUMMARY | 2024-05-03 22:00 | XMS_ITS | Encounter Summary ---
Author Organization [facility] Address [address] [place] [address] Care Team Providers Care Critical Care Nurse Name Role Phone Unavailable Primary Care Provider Unavailabl e Reason for Visit * Reason Comments Follow Up F/U. Refills needed depending on labs 90 day supply please. Encounter Details Date Type Department Care Team (Late st Contact Info) Description 08/14/2011 3:30 PM CDT Office Visit [facility] Endocrinology [address] [place] [address] Prudence Gates MD [address] [place] [address] Familial combined hyperlipidemia; Family history of cardiovascular [...] [facility] - [facility] [address] [address] [place] [address] Marlys Mayer MD [address] [place] [address] documented as of this encounter Visit Diagnoses Diagnosis Familial combined hyperlipidemia Mixed hyperlipidemia Family history of cardiovascular disease Family history of other cardiovascular diseases History of gestational diabetes Personal history of gestational diabetes Metabolic syndrome Dysmetabolic Syndrome X documented in this encounter
--- OUTSIDE RECORDS SUMMARY | 2024-05-03 22:00 | XMS_ITS | Encounter Summary ---
Author Organization [facility] Address [address] [place] [address] Care Team Providers Care Pleasure Craft Sailor Name Role Phone Unavailable Primary Care Provider Unavailabl e Reason for Visit * Reason Onset Date Comments Results 12/20/2011 Encounter Details Date Type Department Care Team (Late st Contact Info) Description 12/20/2011 Telephone [facility] Endocrinology [address] [place] [address] Sagrario Jang MD [address] [place], [place] [id number] Results Social History Tobacco Use Types Packs/Day [...] TSH lab order [facility] to [facility] [address] Also needs order for synthroid 137 mcg sent to [place] [facility], * Telephone Encounter - David Richardson [...] [facility] Heart and Vascular - [facility] [address] [place] [address] Marlys Mayer MD [address] [place] [address] Scheduled Orders Name Type Priority Associated Diagnoses Orde r Schedule TSH Lab Routine Unspecified hypothyroidism Ordered: 12/21/2011 documented as of this encounter Visit Diagnoses Diagnosis Unspecified hypothyroidism- Primary documented in this encounter
--- OUTSIDE RECORDS SUMMARY | 2024-05-03 22:00 | XMS_ITS | Encounter Summary ---
Author Organization [facility] Address [address] [place] [address] Care Team Providers Care Concrete Pointer Name Role Phone Unavailable Primary Care Provider Unavailabl e Reason for Visit * Reason Onset Date Comments Medication Refill 04/16/2012 Encounter Details Date Type Department Care Team (Late Contact Info) Description 04/16/2012 Telephone [facility] Endocrinology [address] [place] [address] Prudence Gates MD [address] [place], [place] [id number] Medication Refill Social History Tobacco Use Types [...] Upcoming Encounters Date Type Department Care Team ([facility] Contact Info) Description 09/14/2024 3:00 PM CDT Office Visit [facility] Heart and Vascular - [place] [address] [place] [address] Marlys Mayer MD [address] [place], [place] [id number] documented as of this encounter Visit Diagnoses Not on filedocumented in this encounter
--- OUTSIDE RECORDS SUMMARY | 2024-05-03 22:00 | XMS_ITS | Encounter Summary ---
Author Organization [facility] Address [address] [place] [address] Care Team Providers Care Wire Chief Name Role Phone Unavailable Primary Care Provider Unavailabl e Reason for Visit * Reason Onset Date Comments Question 04/23/2012 Encounter Details Date Type Department Care Team (Late st Contact Info) Description 04/23/2012 Telephone [facility] Endocrinology [address] [place] [address] Prudence Gates MD [address] [place] [address] Question Social History Tobacco Use Types Packs/Day [...] PM CST Pt informed of note below. ENSER TESTER * Telephone Encounter - Prudence Gates MD - 04/23/2012 11:48 AM CONDENSER TESTER Needs to see the eligibility specialist is that is the case ENSER TESTER * Telephone Encounter - Ena Madera - [...] dr to look at it. Please advise. ENSER TESTER documented in this encounter Plan of Treatment Upcoming Encounters Date Type Department Care Team (Late st Contact Info) Description 09/14/2024 3:00 PM CDT Office Visit [facility] Heart and Vascular - [place] [address] [place] [address] Marlys Mayer MD [address] [place] [address] documented as of this encounter Visit Diagnoses Not on filedocumented in this encounter
--- OUTSIDE RECORDS SUMMARY | 2024-05-03 22:00 | XMS_ITS | Encounter Summary ---
Author Organization [facility] Address [address] [place] [address] Care Team Providers Care Concrete Plant Laborer Name Role Phone Unavailable Primary Care Provider Unavailabl e Reason for Visit * Reason Onset Date Comments Medication Refill 09/04/2012 Encounter Details Date Type Department Care Team (Late Contact Info) Description 09/04/2012 Refill [facility] Endocrinology [address] [place] [address] Prudence Gates MD [address] [place] [address] Social History Tobacco Use Types Packs/Day Years [...] and Vascular - [place] [address] [place] [address] Marlys Mayer MD [address] [place] [address] documented as of this encounter Visit Diagnoses Not on filedocumented in this encounter
--- OUTSIDE RECORDS SUMMARY | 2024-05-03 22:00 | XMS_ITS | Encounter Summary ---
Author Organization [facility] Address [address] [place] [address] Care Team Providers Care Pressurizer Name Role Phone Unavailable Primary Care Provider Unavailabl e Reason for Visit * Reason Comments Thyroid Problem F/U. refills needed depending on labs. 90 day supply. Encounter Details Date Type Department Care Team ([facility] Contact Info) Description 12/18/2011 2:30 PM CDT Office Visit [facility] Endocrinology [address] [place] [address] Prudence Gates MD [address] [place], [place] [id number] Unspecified hypothyroidism; Metabolic syndrome; Combined hyperlipidemia; Smoker; [...] [facility] - [facility] [address] [place] [address] Marlys Mayer MD [address] [place] [address] documented as of this encounter Visit Diagnoses Diagnosis Unspecified hypothyroidism Metabolic syndrome Dysmetabolic Syndrome X Combined hyperlipidemia Mixed hyperlipidemia Smoker Tobacco use disorder Family history of diabetes mellitus Panic attacks Panic disorder without agoraphobia documented in this encounter
--- OUTSIDE RECORDS SUMMARY | 2024-05-03 22:00 | XMS_ITS | Encounter Summary ---
Author Organization [facility] Address [address] [place] [address] Care Team Providers Care Dehairer Name Role Phone Unavailable Primary Care Provider Unavailabl e Reason for Visit * Reason Onset Date Comments Medication Refill 06/26/2011 Encounter Details Date Type Department Care Team (Late Contact Info) Description 06/26/2011 Refill [facility] Endocrinology [address] [place] [address] Prudence Gates MD [address] [place] [address] Social History Tobacco Use Types Packs/Day Years [...] [facility] - [place] [address] [place] [address] Marlys Mayer MD [address] [place] [address] documented as of this encounter Visit Diagnoses Not on filedocumented in this encounter
--- OUTSIDE RECORDS SUMMARY | 2024-05-03 22:00 | XMS_ITS | Encounter Summary ---
Author Organization [facility] Address [address] [place] [address] Care Team Providers Care Route Delivery Service Driver Name Role Phone Unavailable Primary Care Provider Unavailabl e Reason for Visit * Reason Comments Diabetes F/U. unsure of refil ls. Encounter Details Date Type Department Care Team (Late st Contact Info) Description 06/26/2011 2:45 PM DEPUTY SHERIFF GENERALIST Office Visit [facility] Endocrinology [address] [place] [address] Prudence Gates MD [address] [place] [address] PCOS (polycystic ovarian syndrome); Metabolic syndrome; Fatty [...] Comments Blood Pressure 114/68 06/26/2011 2:56 PM DEPUTY SHERIFF GENERALIST Pulse 72 06/26/2011 2:56 PM DEPUTY SHERIFF GENERALIST Temperature - - Respiratory Rate - - Oxygen Saturation - - Inhaled Oxygen Concentration - - Weight 85.3 kg (188 lb) 06/26/2011 2:56 PM DEPUTY SHERIFF GENERALIST Height 162.6 cm (5' 4 ) 06/26/2011 2:56 PM DEPUTY SHERIFF GENERALIST Body Mass Index 32.27 06/26/2011 2:56 PM DEPUTY SHERIFF GENERALIST documented in this encounter Progress Notes * Prudence Gates MD - 06/26/2011 3:11 PM CST The patient came for follow up of PCOS, metabolic syndrome, prediabetes and significant combined hyperlipidemia. Mrs. Faulkner went to see her CONNECTION WORKER a few weeks ago. Ms Wesley did [...] tablet Take 1 Tab by mouth daily outside machinist helper. TAKE WITHOUT FOOD 30 Tab1 ??? ibuprofen [...] conditions and this was also discussed extensively. TY SHERIFF GENERALIST * Nahed [place] 06/26/2011 2:53 PM CST Pt here for D/M F/U. Recent labs. See lab tab for results. Pt feels better. B/G-101 TY SHERIFF GENERALIST documented in this encounter Plan of Treatment Upcoming Encounters Date Type Department Care Team (Late st Contact Info) Description 09/14/2024 3:00 PM CDT Office Visit [facility] Heart and Vascular - [place] [address] [place] [address] Marlys Mayer MD [address] [place] [address] documented as of this [...] 30 - 100 ng/mL [facility] . [facility] VITAMIN D, 25 OH, D2 51 ng/mL [facility] . [facility] VITAMIN D, 25 OH, D3 6 ng/mL [facility] Comment: 25-OHD3 indicates both endogenous production and supplementation. 25-OHD2 is an indicator of exogenous sources such as diet or supplementation. Therapy is based on measurement of Total 25-OHD, with levels <20 ng/mL indicative of Vitamin D deficiency while levels between 20 ng/mL and 30 ng/mL suggest insufficiency. Optimal levels are >/=30 ng/mL. REPORT COMMENT: FASTING Test Performed at: [place] [address] [place], [place] ??[phone] CARMEN RICHMOND MD ?? 08/10/2011 7:21 AM CDT Prudence Gates MD CHEMISTRY ORDERAB LES Performing Organization Address [facility] de Phone Number INTERFACE SYSTEM Refer to clinic/hospital department [facility] [address] [place] [address] * TSH (08/10/2011 7:21 AM CDT) Pathologist [facility] TSH 0.73 mIU/L [facility] . [facility] Comment: Reference Range > or = 20 Years ??0.40-4.50 ? Ranges First trimester ?0.20-4.70 Second trimester ?? 0.30-4.10 Third trimester ?0.40-2.70 REPORT COMMENT: FASTING Test Performed at: [facility] [address] ??[phone] DELMA MAURER DO,MPH 08/10/2011 7:21 AM CDT Prudence Gates MD CHEMISTRY ORDERAB LES Performing Organization Address [facility] de Phone Number INTERFACE SYSTEM Refer to clinic/hospital department [facility] [address] [place] [address] * (ABNORMAL) HEPATIC FUNCTION PANEL (08/10/2011 7:21 [...] 0.2 - 1.2 mg/dL (calc) [facility] ALKALINE PHOSPHATASE 53 33 - 115 U/L [facility] AST 17 10 - 30 U/L [facility] . [facility] ALT 18 6 - 40 U/L [facility] Comment: REPORT COMMENT: FASTING Test Performed at: [facility] [address] ??[phone] DELMA MAURER DO,MPH 08/10/2011 7:21 AM CDT Prudence Gates MD CHEMISTRY ORDERAB LES Performing Organization Address [facility] Phone Number INTERFACE SYSTEM Refer to clinic/hospital department [facility] [address] [place] [phone] * LDL CHOLESTEROL, DIRECT (08/10/2011 7:21 AM CDT) LDL CHOLESTEROL, DIRECT 110 <130 mg/dL [facility] Comment: Desirable range <100 mg/dL for patients with CHD or diabetes and <70 mg/dL for diabetic patients with known heart disease. Test Performed at: [facility] ??[phone] DELMA MAURER DO,MPH 08/10/2011 7:21 AM CDT Prudence Gates MD CHEMISTRY ORDERAB LES Performing Organization Address [facility] de Phone Number INTERFACE SYSTEM Refer to clinic/hospital department [facility] [address] [place] [address] * (ABNORMAL) LIPID PANEL (08/10/2011 7:21 AM CDT) CHOLESTEROL 195 125 - 200 mg/dL [facility] Comment: Test Performed at: [facility] ??[phone] DELMA MAURER DO,MPH HDL 31(L) > OR = 46 mg/dL [facility] TRIGLYCERIDE 318(H) <150 mg/dL [facility] LDL CALCULATED 100 <130 mg/dL (calc) [facility] Comment: Desirable range <100 mg/dL for patients with CHD or diabetes and <70 mg/dL for diabetic patients with known heart disease. CHOL/HDL RATIO 6.3(H) < OR = 5.0 (calc) [facility] . [facility] RES[facility] 164 mg/dL (calc) [facility] . [facility] Comment: Component Name: ??NON-HDL CHOLESTEROL Target for non-HDL cholesterol is 30 mg/dL higher than LDL cholesterol target. 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
--- OUTSIDE RECORDS SUMMARY | 2024-05-03 22:00 | XMS_ITS | Encounter Summary ---
Author Organization [facility] Address [address] [place] [address] Care Team Providers Care Epoxy Specialist Name Role Phone Unavailable Primary Care Provider Unavailabl e Reason for Visit * Reason Onset Date Comments Medication Refill 12/21/2011 Encounter Details Date Type Department Care Team (Late Contact Info) Description 12/21/2011 Refill [facility] Endocrinology [address] [place] [address] Prudence Gates MD [address] [place] [address] Unspecified hypothyroidism (Primary Dx) Social History Tobacco [...] [facility] [place] [facility] [place] - [facility] [address] [place] [address] Marlys Mayer MD [address] [place] [address] documented as of this encounter Visit Diagnoses Diagnosis Unspecified hypothyroidism- Primary documented in this encounter
--- OUTSIDE RECORDS SUMMARY | 2024-05-03 22:00 | XMS_ITS | Encounter Summary ---
Author Organization [facility] Address [address] [place] [address] Care Team Providers Care Code Enforcement Officer Name Role Phone Unavailable Primary Care Provider Unavailabl e Reason for Referral * Outpatient Services (Routine) - Closed Specialty Diagnoses / Procedures Referred By Tequila bowman Referred To Contact MRI Diagnoses Metabolic syndrome History of gestational diabetes PCOS (polycystic ovarian syndrome) Adrenal mass Familial combined hyperlipidemia Hypothyroidism Procedures MRI ABDOMEN W WO CONTRAST Prudence Gates MD [address] [place] [id number] Referral ID Status Reason Start Date Expiration Date Visits Re quested Visits Authorized [id number] Closed 05/15/2011 05/14/2012 1 1 EN CENTER MANAGER Reason for Visit * Reason Comments Establish Care N/P Metabolic Syndro me Encounter Details Date Type Department Care Team (Late st Contact Info) Description 05/15/2011 10:45 AM GARDEN CENTER MANAGER Office Visit [facility] ([facility] Endocrinology [address] [place] [address] Prudence Gates MD [address] [place] [address] Metabolic syndrome; History of gestational [...] Comments Blood Pressure 116/80 05/15/2011 10:58 AM GARDEN CENTER MANAGER Pulse 74 05/15/2011 10:58 AM GARDEN CENTER MANAGER Temperature - - Respiratory Rate - - Oxygen Saturation - - Inhaled Oxygen Concentration - - Weight 88.9 kg (196 lb) 05/15/2011 10:58 AM GARDEN CENTER MANAGER Height 162.6 cm (5' 4 ) 05/15/2011 10:58 AM GARDEN CENTER MANAGER Body Mass Index 33.64 05/15/2011 10:58 AM GARDEN CENTER MANAGER documented in this encounter Progress Notes * Shira Olivo, CLAU - 05/15/2011 12:17 PM CST Discussed diet rational. Goal consistent carb intake low fat and healthy food choices. Discussed cho counting and label reading. Simple meal plan given Pt aware Will need to increased carbs once labs improve To call with question / problems. EN CENTER MANAGER * Prudence Gates MD - 05/15/2011 11:15 AM CST HISTORY OF PRESENT ILLNESS Casandra Faulkner, a 35 y.o. female. HPI The patient referred for consultation by Ms. Araceli Wesley [phone] (DYE OPERATOR) for the evaluation and management of PCOS, metabolic syndrome, prediabetes and severe hyperlipidemia. Mrs. Faulkner went to see her CROWN PERFORATOR OPERATOR a few weeks ago. Ms Wesley did [...] I also discussed the fact that terminal operations manager health problems such as the development of [...] Have a great day, Sincerely yours Prudence Gaets EN CENTER MANAGER * Nahed France - 05/15/2011 11:00 AM CST Pt here for N/P Metabolic syndrome. Recent labs Pt has with her. Please return to Pt. Pt C/O tiredness, Lack of desire to do anything. EN CENTER MANAGER documented in this encounter Plan of Treatment Upcoming Encounters Date Type Department Care Team (Late st Contact Info) Description 09/14/2024 3:00 PM CDT Office Visit [facility] ([facility]) Heart and Vascular - [place] [id number] [place] [address] Marlys Mayer MD [address] [place], [place] [id number] documented as of this encounter Results * MRI ABDOMEN W WO CONTRAST (05/25/2011 8:29 AM GARDEN CENTER MANAGER) Anatomical Region Laterality Modality Abdomen Magnetic Resonan ce 05/25/2011 7:50 AM GARDEN CENTER MANAGER Impressions 05/25/2011 4:47 PM GARDEN CENTER MANAGER IMPRESSION: 1. Normal adrenals. No evidence of [...] is recommended. ?? Narrative 05/25/2011 4:47 PM GARDEN CENTER MANAGER MRI ABDOMEN WITH AND WITHOUT IV CONTRAST, [...]
--- OUTSIDE RECORDS SUMMARY | 2024-05-03 22:00 | XMS_ITS | Encounter Summary ---
Author Organization [facility] Address [address] [place] [address] Care Team Providers Care Director Of State Name Role Phone Unavailable Primary Care Provider Unavailabl e Encounter Details Date Type Department Care Team (Late Contact Info) Description 05/17/2011 Abstract [facility] Endocrinology [address] [place] [phone] Prudence Gates MD [address] [place], [place] [id number] Social History Tobacco Use Types Packs/Day Years [...] Upcoming Encounters Date Type Department Care Team ([facility] Contact Info) Description 09/14/2024 3:00 PM CDT Office Visit [facility] Heart and Vascular - [facility] [address] [place] [address] Marlys Mayer MD [address] [place], [place] [id number] documented as of this encounter Procedures Procedure Name Priority Date/Time Associated Diagnosis Comments MISCELLANEOUS LAB TEST Routine 05/15/2011 documented in this encounter Results * MISCELLANEOUS LAB TEST (05/15/2011) MISCELLANEOUS LAB TEST EXTERNAL LAB Specimen of unknown material (specimen) Abstract Provider CHEMISTRY ORDERABLES Performing Organization Address City/State/[facility] Co de Phone Number EXTERNAL LAB documented in this encounter Visit Diagnoses Not on filedocumented in this encounter
--- OUTSIDE RECORDS SUMMARY | 2024-05-03 22:00 | XMS_ITS | Encounter Summary ---
Author Organization [facility] Address [address] [place] [address] Care Team Providers Care Senior Oracle Applications Developer Name Role Phone Nomfc, External Provider Primary Care Provider U navailable Reason for Visit * Auth/Cert Specialty Diagnoses / Procedures Referred By Tequila t Referred To Contact Multi Specialty Diagnoses Hypertriglyceridemia [facility] [address] [place] [address] Referral ID Status Reason Start Date Expiration Date Visits Re quested Visits Authorized [id number] 1 1 Encounter Details Date Type Department Care Team (Latest Contact Info) Description 12/04/2017 5:42 PM CDT - 12/10/2017 1:25 PM CDT Hospital Encounter [facility] [address] [place] [address] Puja Pagan MD [address] [address] Uzma Yusuf MD NO ADDRESS ON FILE Stephanie Babin MD [address] [place] [address] Odette Che MD [id number] Chylomicronemia syndrome Discharge Disposition: Home or [...] Che MD - 12/09/2017 8:37 PM CDT [facility] Adult Hospitalist Discharge Summary Patient Name: Casandra [...] Che MD Quantity: 28 Gram Refills: 0 SENNA [...] take 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 Signed by: Odette Che MD Quantity: 30 Tablet Refills: 3 Ppsil6-VmpN3-R01-E-FA-Fish Oil [phone] jd-xr-dnt-mcg Capsule What changed: ?? how much to take ?? when to take this Take 2 Caplets by mouth 2 times daily. Signed by: Odette Che MD Quantity: 120 Capsule Refills: 3 CONTINUE taking these medications cclbzyk-mgonlb-jmwjumwt DR 60-12-38 capsule Commonly known as: CREON [...] Your Medications These medications were sent to [address] [facility] [address] Hours: Saturday-Saturday: 8 a.m. - 8 p.m., Saturday: 9 a.m. - 5 p.m., Sebastian: 10 a.m. - 2 p.m. ?? hydrocortisone 1 % Ointment ?? insulin glargine 100 unit/mL injection ?? levothyroxine 200 mcg tablet ?? Hcksp6-LcaH8-S76-E-FA-Fish Oil [phone] wm-pz-epg-mcg Capsule ?? SENNA LAX 8.6 mg tablet [...] 2017/October 2017 who presents as transfer from [facility] for management of recurrent triglyceride and symptoms [...] Che MD and may be reached at [phone] for any questions or concerns until you see your doctor. FOLLOW-UP Follow up with PCP in 7 days Follow up with dr Rudd. Call [phone] to make an appointment MEDS: Prescriptions given? Yes SIGNS AND SYMPTOMS TO REPORT: Contact your health care provider if you experience any of the following symptoms: Worsening shortness of breath, worsening chest pain, fever >101.5, profuse diarrhea, severe nausea and vomiting Smoking Exposure: [facility] encourages all patients to decrease risks associated with smoking and second hand smoke exposure. If you smoke you are advised to quit. Ask your health care provider for advice if you need assistance to stop smoking. Avoid second-hand smoke exposure and do not let people smoke in your home. 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 30 Tablet 3 12/11/2017 04/10/2018 Onakt6-ErfZ0-J17-E-FA-F bossman Oil [phone] nf-mp-xxx-mcg Capsule Take 2 Caplets by mouth 2 [...] daily as needed for Anxiety . 06/18/2020 dgnzrow-nkjwkn-scndfkdq DR (CREON 12 60-12-38 capsule Take by mouth 3 times daily after meals. 04/10/2018 fenofibrate nanocrystallized (TRICOR) 145 mg tablet Take 145 mg by mouth daily. 04/10/2018 citalopram (CeleXA) 40 mg tablet Take 40 mg by mouth daily at bedtime. 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 TAKE WITHOUT FOOD 30 Tab 0 03/20/2013 [...] Initial encounter to introduce self, role of shell mold bonder and to assess Patient Spiritual Issues Identified Needs/hopes/resources Family jackie/values/dynamics Level of spiritual distress (none, mild, moderate, severe) Jackie Druze Looking forward to going home to be with children None Spiritual Interventions Affirmation, spiritual support Outcomes of Care Level of spiritual distress after intervention Appreciative of concern and prayer Goals of Spiritual Care Spiritual and emotional support Liner Inserter Plan Follow up as appropriate Recommendations for Healthcare Team * Matteo Curtis RN - 12/09/2017 5:25 PM CDT Diet has been advanced to low fat. PRN Morphine d/c. Only on PO narcotics now. Plan to d/c in the am. * Odette Che MD - 12/09/2017 12:29 PM CDT [facility] Adult Hospitalist Progress Note Admit Date: 12/04/2017 [...] Issues/Follow Up Needs MD Odette Aguila MD [facility] Hospitalist [phone] (p) * Blake Rudd MD - 12/09/2017 12:28 PM CDT Name: Casandra Jones : 1975 Date: 12/09/2017 Room/Bed: [facility]/ Hospital Day: LOS: 5 days Reason [...] perspective. She will need close f/u and nut chopper c/s for low-fat, low-carb diet. She is [...] insulin requirements on current diet. Please call [phone] with questions. Thank you for this consult. Blake Rudd MD PhD * Odette Che MD - 12/08/2017 2:00 PM CDT [facility] Adult Hospitalist Progress Note Admit Date: 12/04/2017 [...] Issues/Follow Up Needs MD Odette Aguila MD [facility] Hospitalist [phone] (p) * Blake Rudd MD - 12/08/2017 9:51 AM CDT TG 914 this morning. Continue current therapy. Would continue to advance diet and limit narcotic pain meds for management of abd pain. * Stephanie Babin MD - 12/07/2017 3:10 PM CDT [facility] Adult Hospitalist Progress Note Admit Date: 12/04/2017 [...] Issues/Follow Up Needs Stephanie Babin MD Pager [phone] * Blake Rudd MD - 12/06/2017 2:42 PM CDT Name: Casandra Jones : 1975 Date: 12/06/2017 Room/Bed: [facility]/ Hospital Day: LOS: 2 days Reason [...] Daily Angie Louis MD 40 mg at 12/06/17 0908 [...] PRN Angie Louis MD 2 mg at 12/06/17 1227 ??? [...] PRN Angie Louis MD 10 mg at 12/06/17 0404 ??? [...] clear liquids (low carb, low fat). Needs nut chopper c/s. Has to be compliant with low carb, very low fat at home. Awaiting spot urine protein. #) T2DM: little to no insulin requirements here. Continue SSI insulin for now. #) Electrolyte abn: hypocalcemia and hyponatremia present on admission, would repeat CMP #) Hypothyroidism: increased LT4 this morning. #) Abd pain: stable Please call [phone] with questions. Blake Rudd MD PhD * Uzma Yusuf MD - 12/06/2017 1:23 PM CDT [facility] Adult Hospitalist Progress Note Admit Date: 12/04/2017 [...] GLUCOSE 143 (H) 74 - 99 mg/dL [employer] NAME GREG TREVIÑO POC GLUCOSE Result Value Ref Range POC GLUCOSE 112 (H) 74 - 99 mg/dL [employer] NAME ABHAY BEATTY POC GLUCOSE Result Value Ref Range POC GLUCOSE 123 (H) 74 - 99 mg/dL [employer] NAME JIGNA MARTINEZ POC GLUCOSE Result Value Ref Range POC GLUCOSE 116 (H) 74 - 99 mg/dL [employer] NAME JIGNA MARTINEZ POC GLUCOSE Result Value Ref Range POC GLUCOSE 113 (H) 74 - 99 mg/dL [employer] NAME JIGNA MARTINEZ TRIGLYCERIDE Result Value Ref Range TRIGLYCERIDE 1,107 (H) <150 mg/dL POC GLUCOSE Result Value Ref Range POC GLUCOSE 112 (H) 74 - 99 mg/dL [employer] NAME SHIVANI BROWNINE POC GLUCOSE Result Value Ref Range POC GLUCOSE 106 (H) 74 - 99 mg/dL [employer] NAME ROSALVA BROWN Assessment/Plan of Actively Managed [...] results.?? MD Kasia Walton Hospitalist 7a-7p : [phone](pager) 7p-7a: eAcute * Uzma Yusuf MD - 12/05/2017 2:38 PM CDT [facility] Adult Hospitalist Progress Note Admit Date: 12/04/2017 [...] 99 mg/dL COMMENT, GLU POC Notified RN/MD [employer] NAME VICK VANCE POC GLUCOSE Result Value Ref Range POC GLUCOSE 150 (H) 74 - 99 mg/dL COMMENT, GLU POC Notified RN/MD [employer] NAME VICK VANCE TRIGLYCERIDE Result Value Ref Range TRIGLYCERIDE 1,462 (H) <150 mg/dL CALCIUM IONIZED Result Value Ref Range PH, VENOUS 7.34 7.32 - 7.43 CALCIUM IONIZED 4.5 (L) 4.8 - 5.2 mg/dL POC GLUCOSE Result Value Ref Range POC GLUCOSE 155 (H) 74 - 99 mg/dL [employer] NAME OMERCEHAIC, GREG POC GLUCOSE Result Value Ref Range POC GLUCOSE 143 (H) 74 - 99 mg/dL [employer] NAME OMERCEHAIC, GREG Assessment/Plan of Actively Managed [...] Activity Order: Present Activity: in bed;ambulated (12/05/17 0960) Current Code Status -Full Code Plan discussed with patient, questions answered. Current Planned Disposition -home pending course More than 35 minutes were spent in the care of this patient today; more than 50% was spent in discussion of expected course of disease, discussion of prognosis, discharge planning, coordination of care and discussion of lab and test results.?? Uzma Yusuf MD [facility] 7a-7p : [phone](pager) 7p-7a: eAcute * Angie Louis MD - 12/04/2017 9:41 PM CDT TG continue to improve 2101-->1612-->1496 for 24 hrs, LA normal, K 3.4. Plan: will hold off of Insulin gtt since TG are improving, will replace K with fluids, recheck TG in a.m. Angie Louis MD documented in this encounter H&P Notes * Angie Louis MD - 12/04/2017 7:54 PM CDT [facility] Patient Name: Casandra Jones Copy to [...] 2017/October 2017 who presents as transfer from [facility] for management of recurrent triglyceride and symptoms consistent with Pancreatitis related to that. 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 Patient presented to [facility] on 12/02/17 evening. TG checked there on 12/03/17 a.m. Are 2101. Lipase and Ct a/p normal. Patient reports that Lipase is always normal but ones her Lipids decrease symptoms resolve. patient has beentrying to get to lipid clinic- [place]/ [facility] without success. Has not eaten anything for [...] Take 40 mg by mouth daily. ??? Hwbwx8-WzeL7-M03-E-FA-Fish Oil [phone] qz-vs-qrn-mcg Capsule Take 1 Caplet by mouth daily. [...] daily as needed for Anxiety . ??? 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 ??? [DISCONTINUED] levothyroxine 150 mcg tablet Take 150 mcg by mouth daily scrap materials buyer. Medication Allergies:No Known Allergies Family History: Family [...] Code Status: Full . Angie Louis MD [facility] [phone] documented in this encounter Consult Notes * Tyshawn Marlys Maxwell, ARMAND - 12/09/2017 3:14 PM CDTAssociated Order(s): IP CONSULT TO NUTRITION SERVICES Images from the original note were not included. CLINICAL DIETITIAN PROGRESS NOTE [facility] Follow Up A: Height: 5' 5 (165.1 [...] TO NUTRITION SERVICES CLINICAL DIETITIAN PROGRESS NOTE [facility] Nutrition Consult: assessment A: Dx/PMH: hypertriglyceridemia, DM, [...] and as needed. Ligia Higuera RDLD pgr [phone] * Blake Rudd MD - 12/05/2017 12:44 PM CDTAssociated Order(s): IP CONSULT TO ENDOCRINOLOGY Images from the original note were not included. [facility] ENDOCRINOLOGY CONSULT NOTE Name: Casandra Jones : 1975 Date: 12/05/2017 Room/Bed: 6347/1 Hospital Day: LOS: 1 day Reason for consult: Hyper TG HPI: This patient is a 42-year-old female with history of hypothyroidism, depression, hypertriglyceridemia, and type 2 diabetes. She reports that on Saturday or Saturday, she developed symptoms of nausea, vomiting, diarrhea, and abdominal pain. This prompted her to present to [facility] on Saturday. She was found to have [...] 40 mg 40 mg Oral Daily BEDTIME nAgie Louis MD 40 mg at 12/04/172123 ??? [...] were discussed with Dr. Yusuf. Please call [phone] with questions. Thank youfor this consult. Blake Rudd MD PhD * Lori Lea RN - 12/05/2017 10:23 AM CDTAssociated Order(s): IP CONSULT TO IV TEAM IV CONSULT: Request for IV consult. Reviewed electronic record and completed a vascular assessment. PIV startedand documented in [employer]. Recommend PIV for IVF's and IV meds. Bed in low position,HOB up 35 degrees,?? side rails up X2. Safety check completed. Vicki OLGUIN notified. ?? * Jose Rutherford MD - 12/05/2017 8:50 AM CDTAssociated Order(s): IP CONSULT TO GI Inpatient GI Consultation Note Patient: Casandra Jones / 42 y.o. / female : 1975 Date: 12/05/2017 CSN: [id number] Referring Physician:No ref. provider found PCP: No [...] pancreatitis in September and October 2017 at [facility] with plasmapheresis. She states her Lipase is never up and CT does not show i nflammation. Her pain improves after plasmapheresis and TG do fall. 12/03 she went to [facility] and TG were 2101. Lipase and CT scan were w/o acute changes. She reports she is taking fenofibrate regularly. She sees an raspberry checker for her DM, but states they do not specialize in lipids. She saw GI while at [place] and was suggested going to lipid clinic at [place]. She also had an EGD within the last 2 months at [place] with negative findings for her pain. On [...] Take 40 mg by mouth daily. ??? Fnqsx0-BxkD8-A33-E-FA-Fish Oil [phone] yb-yd-ogy-mcg Capsule Take 1 Caplet by mouth daily. [...] daily as needed for Anxiety . ??? 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 ??? [DISCONTINUED] levothyroxine 150 mcg tablet Take 150 mcg by mouth daily scrap materials buyer. Past Medical History: Diagnosis Date ??? Depression [...] female with hypertriglyceridemia that was transferred from [facility] with presumed hypertriglyceridemia pancreatitis. She has c/o epigastric pain when her TG are elevated and improves after plasmapheresis. She has had plasmapheresis 3 times in the past. She reports compliance with fenofibrate. Lipase and CT scan do not suggest pancreatitis. Agree with endocrinologyconsult. I have discussed this case with Dr. Rutherford. Thank you very much for this consultation. Hedy Mullins PA-C [facility] Gastroenterology [phone] CC: No ref. provider found , No [...] rash now went away. Prescriptions filled at [facility] and delivered to patient'sroom. * Care Plan - Yamil Gonzalez RN - 12/10/2017 6:29 AM CDT -Pt had some complaint of abdominal pain this shift. [place] given x1 about 0500. -IVF infusing throughout [...] as Nomfc, External Provider. [facility] in [place], [place]. Patient's insurance verified as Payor: AMY / Plan: OUT OF STATE BLUE PREFERRED / Product Type: Blue Cross / The patient's preferred pharmacy is [facility] in [place], [place]. Discussed discharge goals and possible discharge needs including medical follow up. Care Management contact information provided. Care Management will continue to follow and assist asneeded. Christina Maldonado RN, MSN,[facility] Pulmonary Physician [facility] Care [facility] [phone] (tpos) [phone] (office) Discharge Planning ??? Identify discharge needs [...] CDT Undress and Assess performed by: GENOVEVA OLGUINrussian rubber or upon transfer to: [facility] ~~~~~~~~~~~~~~~~~~~~~~~~~~~~ Is the patient a paraplegic/quadriplegic? Does [...] following belongings/valuables:(ie:dentures, hearing aids, glasses): cell phone, ophthalmic pathologist, stuffed animal and bag of clothing Patient [...] [facility] [place] [address] [place] [address] Marlys Mayer MD [address] [place], [place] [id number] documented as of this encounter Procedures Procedure [...] - 99 mg/dL 12/10/2017 8:52 AM CDT [facility] LABORATORY [facility] COMMENT, GLU POC Notified RN/MD 12/10/2017 8:52 AM CDT [facility] LABORATORY [facility] [employer] NAME POC LUCAS HENLEY 12/10/2017 8:52 AM CDT [facility] [employer] [facility] Whole blood specimen (specimen) 12/10/2017 8:33 AM CDT 12/10/2017 8:52 AM CDT Odette Che MD POINT OF CARE TESTIN G [facility]# [id number] [address] [place] [address] [place] [address] * (ABNORMAL) TRIGLYCERIDE (12/10/2017 8:32 AM CDT) TRIGLYCERIDE 700(H) <150 mg/dL 12/10/2017 9:43 AM CDT [facility] Blood Venipuncture / Unknown 12/10/2017 8:32 AM CDT 12/10/2017 8:55 AM CDT Narrative [facility] LABORATORY [facility] - 12/10/2017 9:43 AM CDT TRIGLYCERIDES ? mg/dL Normal ?< 150 Borderline High ?150 - 199 High ? 200 - 499 Very High ? >= 500 Based on AHA/NCEP Guidelines. Angie Louis MD CHEMISTRY ORDERABLES Performing Organization Address [facility] Co de Phone Number [facility]# [id number] [address] [place] [address] * (ABNORMAL) POC GLUCOSE (12/10/2017 4:38 AM CDT) GLUCOSE POC 142(H) 74 - 99 mg/dL 12/10/2017 4:54 AM CDT [facility] COMMENT, GLU POC Notified RN/MD 12/10/2017 4:54 AM CDT [facility] [employer] NAME POC MYRTLE WHITNEY MIKE 12/10/2017 4:54 AM CDT [facility] Whole blood specimen (specimen) 12/10/2017 4:38 AM CDT 12/10/2017 4:54 AM CDT Odette Che MD POINT OF CARE TESTJERONIMO Serrano Performing Organization Address [facility] de Phone Number [facility] [employer] [facility]# [id number] [address] [place] [address] * (ABNORMAL) POC GLUCOSE (12/10/2017 1:31 AM CDT) GLUCOSE POC 136(H) 74 - 99 mg/dL 12/10/2017 1:49 AM CDT [facility] [employer] NAME POC YAMIL GONZALEZ 12/10/2017 1:49 AM CDT [facility] Whole blood specimen (specimen) 12/10/2017 1:31 AM CDT 12/10/2017 1:49 AM CDT Odette Che MD POINT OF CARE TESTJERONIMO Serrano [facility] LABORATORY SERVICES - [facility] CLIA# [id number] [address] [place] [address] * (ABNORMAL) POC GLUCOSE (12/09/2017 8:38 PM CDT) GLUCOSE POC 135(H) 74 - 99 mg/dL 12/09/2017 8:52 PM CDT [facility] LABORATORY SERVICES - [facility] [employer] NAME POC AFUA BURROWS 12/09/2017 8:52 PM CDT [facility] LABORATORY SERVICES - [facility] Whole blood specimen (specimen) 12/09/2017 8:38 PM CDT 12/09/2017 8:52 PM CDT Odette Che MD POINT OF CARE TESTJERONIMO Maggie Performing Organization Address [facility]/ZIP Co de Phone Number [facility] LABORATORY SERVICES [facility] CLIA# [id number] [address] [place] [address] * (ABNORMAL) POC GLUCOSE (12/09/2017 5:19 PM CDT) GLUCOSE POC 141(H) 74 - 99 mg/dL 12/09/2017 5:33 PM CDT [facility] LABORATORY SERVICES - [facility] COMMENT, GLU POC Notified RN/MD 12/09/2017 5:33 PM CDT [facility] LABORATORY SERVICES - [facility] [employer] NAME POC AYLA FENG 12/09/2017 5:33 PM CDT [facility] LABORATORY SERVICES - [facility] Whole blood specimen (specimen) 12/09/2017 5:19 PM CDT 12/09/2017 5:33 PM CDT Odette Che MD POINT OF CARE TESTJERONIMO Maggie [facility] LABORATORY SERVICES [facility] CLIA# [id number] [address] [place] [address] * (ABNORMAL) POC GLUCOSE (12/09/2017 12:46 PM CDT) GLUCOSE POC 128(H) 74 - 99 mg/dL 12/09/2017 1:01 PM CDT [facility] LABORATORY SERVICES - [facility] COMMENT, GLU POC Notified RN/ 12/09/2017 1:01 PM CDT [facility] LABORATORY SERVICES - [facility] [employer] NAME AYLA ALARCON 12/09/2017 1:01 PM CDT [facility] LABORATORY SERVICES - [facility] Whole blood specimen (specimen) 12/09/2017 12:46 PM CDT 12/09/2017 1:01 PM CDT Odette Che MD POINT OF CARE TESTIN G [facility] [employer] [facility] CLIA# [id number] [address] [place] [address] * (ABNORMAL) POC GLUCOSE (12/09/2017 8:13 AM CDT) GLUCOSE POC 134(H) 74 - 99 mg/dL 12/09/2017 11:32 AM CDT [facility] LABORATORY SERVICES - [facility] COMMENT, GLU POC Notified RN/ 12/09/2017 11:32 AM CDT [facility] LABORATORY SERVICES - [facility] [employer] NAME POC AYLA FENG 12/09/2017 11:32 AM CDT [facility] Whole blood specimen (specimen) 12/09/2017 8:13 AM CDT 12/09/2017 11:32 AM CDT Odette Che MD POINT OF CARE TESTIN G [facility] [employer] [facility] CLIA# [id number] [address] [place] [address] * (ABNORMAL) TRIGLYCERIDE (12/09/2017 6:00 AM CDT) TRIGLYCERIDE 763(H) <150 mg/dL 12/09/2017 7:16 AM CDT [facility] LABORATORY [facility] Blood Venipuncture / Unknown 12/09/2017 6:00 AM CDT 12/09/2017 6:22 AM CDT Narrative [facility] LABORATORY [facility] - 12/09/2017 7:16 AM CDT TRIGLYCERIDES ? mg/dL Normal ?< 150 Borderline High ?150 - 199 High ? 200 - 499 Very High ? >= 500 Based on AHA/NCEP Guidelines. Angie Louis MD CHEMISTRY ORDERABLES Performing Organization Address [facility]/ZIP Co de Phone Number [facility] [employer] [facility]# [id number] [address] [place] [address] * (ABNORMAL) POC GLUCOSE (12/09/2017 4:01 AM CDT) GLUCOSE POC 143(H) 74 - 99 mg/dL 12/09/2017 7:22 AM CDT [facility] [employer] [facility] [employer] NAME POC DONALDO HINOJOSA 12/09/2017 7:22 AM CDT [facility] [employer] [facility] Whole blood specimen (specimen) 12/09/2017 4:01 AM CDT 12/09/2017 7:22 AM CDT Odette Che MD POINT OF CARE TESTIN G Performing Organization Address [facility]/ZIP Co de Phone Number [facility] [employer] [facility]# [id number] [address] [place] [address] * (ABNORMAL) POC GLUCOSE (12/09/2017 12:08 AM CDT) GLUCOSE POC 124(H) 74 - 99 mg/dL 12/09/2017 12:21 AM CDT [facility] [employer] NAME POC MELINA YAMIL 12/09/2017 12:21 AM CDT [employer] LABORATORY [facility] Whole blood specimen (specimen) 12/09/2017 12:08 AM CDT 12/09/2017 12:21 AM CDT Odette Che MD POINT OF CARE TESTIN G [facility] LABORATORY SERVICES [facility] CLIA# [id number] [address] [place] [address] * (ABNORMAL) POC GLUCOSE (12/08/2017 8:23 PM CDT) GLUCOSE POC 137(H) 74 - 99 mg/dL 12/09/2017 2:21 AM CDT [facility] LABORATORY SERVICES [facility] [employer] NAME POC DONALDO HINOJOSA 12/09/2017 2:21 AM CDT [facility] Whole blood specimen (specimen) 12/08/2017 8:23 PM CDT 12/09/2017 2:21 AM CDT Odette Che MD POINT OF CARE TESTIN Maggie Performing Organization Address [facility]/ZIP Co de Phone Number [facility] [employer] [facility] CLIA# [id number] [address] [place] [address] * (ABNORMAL) POC GLUCOSE (12/08/2017 5:09 PM CDT) GLUCOSE POC 143(H) 74 - 99 mg/dL 12/08/2017 5:23 PM CDT [facility] LABORATORY SERVICES [facility] [employer] NAME POC SAVANA LEON 12/08/2017 5:23 PM CDT [facility] Whole blood specimen (specimen) 12/08/2017 5:09 PM CDT 12/08/2017 5:23 PM CDT Odette Che MD POINT OF CARE TESTIN G [facility] LABORATORY SERVICES [facility] CLIA# [id number] [address] [place] [address] * (ABNORMAL) POC GLUCOSE (12/08/2017 1:41 PM CDT) GLUCOSE POC 140(H) 74 - 99 mg/dL 12/08/2017 1:54 PM CDT [facility] LABORATORY [facility] [employer] NAME POC SAVANA LEON 12/08/2017 1:54 PM CDT [facility] LABORATORY SERVICES [facility] Whole blood specimen (specimen) 12/08/2017 1:41 PM CDT 12/08/2017 1:54 PM CDT Odette Che MD POINT OF CARE TESTIN G Performing Organization Address [facility] Co de Phone Number [facility] LABORATORY [facility] CLIA# [id number] [address] [place] [address] * (ABNORMAL) POC GLUCOSE (12/08/2017 8:31 AM CDT) GLUCOSE POC 116(H) 74 - 99 mg/dL 12/08/2017 8:54 AM CDT [facility] LABORATORY SERVICES - [facility] COMMENT, GLU POC Notified RN/MD 12/08/2017 8:54 AM CDT [facility] LABORATORY SERVICES [facility] [employer] NAME POC COREY GARVEY 12/08/2017 8:54 AM CDT [facility] LABORATORY SERVICES [facility] Whole blood specimen (specimen) 12/08/2017 8:31 AM CDT 12/08/2017 8:54 AM CDT Stephanie Babin MD POINT OF CARE T ESTING [facility] LABORATORY [facility] CLIA# [id number] [address] [place] [address] * (ABNORMAL) TRIGLYCERIDE (12/08/2017 7:52 AM CDT) TRIGLYCERIDE 914(H) <150 mg/dL 12/08/2017 9:08 AM CDT [facility] LABORATORY SERVICES - [facility] Blood Venipuncture / Unknown 12/08/2017 7:52 AM CDT 12/08/2017 8:10 AM CDT [facility] [employer] LABORATORY SERVICES - [facility] - 12/08/2017 9:08 AM CDT TRIGLYCERIDES ? mg/dL Normal ?< 150 Borderline High ?150 - 199 High ? 200 - 499 Very High ? >= 500 Based on AHA/NCEP Guidelines. Angie Louis MD CHEMISTRY ORDERABLES [facility] LABORATORY SERVICES [facility]# [id number] [address] [place] [address] * (ABNORMAL) BASIC METABOLIC PANEL (12/08/2017 7:52 AM CDT) SODIUM 136 136 - 145 mmol/L 12/08/2017 8:52 AM T [facility] LABORATORY SERVICES - [facility] POTASSIUM 4.0 3.5 - 5.0 mmol/L 12/08/2017 8:52 AM T [facility] LABORATORY SERVICES - . [facility] CHLORIDE 100 98 - 107 mmol/L 12/08/2017 8:52 AM T [facility] LABORATORY SERVICES - . [facility] CO2 26 22 - 29 mmol/L 12/08/2017 8:52 AM CDT [facility] LABORATORY SERVICES - . [facility] CALCIUM 9.1 8.6 - 10.2 mg/dL 12/08/2017 8:52 AM T [facility] LAB[facility]ATORY SERVICES - [facility] BUN 3(L) 6 - 20 mg/dL 12/08/2017 8:52 AM T [facility] LABORATORY SERVICES - . [facility] CREATININE 0.69 0.51 - 0.95 mg/dL 12/08/2017 8:52 AM T [facility] LABORATORY SERVICES - . [facility] GLUCOSE 116(H) 74 - 99 mg/dL 12/08/2017 8:52 AM CDT [facility] LABORATORY SERVICES - . [facility] GFR >60 >=60 mL/min/1.7 3 sq meter 12/08/2017 8:52 AM T [facility] [employer] [facility] Comment: eGFR has not been validated for [...] mL/min/1.7 3 sq meter 12/08/2017 8:52 AM [facility] [employer] [facility] ANION GAP 10 8 - 16 mmol/L 12/08/2017 8:52 AM [facility] Blood Venipuncture / Unknown 12/08/2017 7:52 AM CDT 12/08/2017 8:10 AM CDT Stephanie Babin MD CHEMISTRY ORDER OSVALDO [facility] [employer] [facility]# [id number] [address] [facility] [address] [address] * (ABNORMAL) POC GLUCOSE (12/08/2017 4:19 AM CDT) [facility] Signature GLUCOSE POC 119(H) 74 - 99 mg/dL 12/08/2017 5:02 AM CDT [facility] LABORATORY [facility] COMMENT, GLU POC Notified RN/MD 12/08/2017 5:02 AM CDT [facility] [employer] [facility] [employer] NAME POC MYRTLE WHITNEY FRANKSN 12/08/2017 5:02 AM CDT [facility] [employer] [facility] Whole blood specimen (specimen) 12/08/2017 4:19 AM CDT 12/08/2017 5:02 AM CDT Stephanie Babin MD POINT OF CARE T ESTING Performing Organization Address [facility]/ZIP Co de Phone Number [facility] LAB[facility]ATORY SERVICES [facility]# [id number] [address] [place] [address] * (ABNORMAL) POC GLUCOSE (12/08/2017 12:28 AM CDT) GLUCOSE POC 146(H) 74 - 99 mg/dL 12/08/2017 2:47 AM CDT [facility] LABORATORY SERVICES - [facility] COMMENT, GLU POC Notified RN/MD 12/08/2017 2:47 AM CDT [facility] LABORATORY SERVICES - [facility] [employer] NAME POC WHITNEY IRAHETA 12/08/2017 2:47 AM CDT [facility] LABORATORY SERVICES [facility] Whole blood specimen (specimen) 12/08/2017 12:28 AM CDT 12/08/2017 2:47 AM CDT Stephanie Babin MD POINT OF CARE T ESTING Performing Organization Address [facility]/ZIP Co de Phone Number [facility]# [id number] [address] [place] [address] * (ABNORMAL) POC GLUCOSE (12/07/2017 8:51 PM CDT) GLUCOSE POC 120(H) 74 - 99 mg/dL 12/07/2017 9:32 PM CDT [facility] LABORATORY SERVICES [facility] [employer] NAME POC UNIQUE WEAVER 12/07/2017 9:32 PM CDT [facility] LABORATORY SERVICES [facility] Whole blood specimen (specimen) 12/07/2017 8:51 PM CDT 12/07/2017 9:32 PM CDT Stephanie Babin MD POINT OF CARE T ESTING [facility] LABORATORY [facility] CLIA# [id number] [address] [place] [address] * (ABNORMAL) POC GLUCOSE (12/07/2017 5:37 PM CDT) GLUCOSE POC 113(H) 74 - 99 mg/dL 12/07/2017 5:51 PM CDT [facility] LABORATORY SERVICES [facility] [employer] NAME POC SAVANA LEON 12/07/2017 5:51 PM CDT [facility] LABORATORY SERVICES [facility] Whole blood specimen (specimen) 12/07/2017 5:37 PM CDT 12/07/2017 5:51 PM CDT Stephanie Babin MD POINT OF CARE T ESTING [facility] [employer] [facility] CLIA# [id number] [address] [place] [address] * (ABNORMAL) POC GLUCOSE (12/07/2017 12:15 PM CDT) GLUCOSE POC 111(H) 74 - 99 mg/dL 12/07/2017 12:27 PM CDT [facility] LABORATORY [facility] [employer] NAME POC ROSALVA BROWN 12/07/2017 12:27 PM CDT [facility] LABORATORY SERVICES [facility] Whole blood specimen (specimen) 12/07/2017 12:15 PM CDT 12/07/2017 12:27 PM CDT Stephanie Babin MD POINT OF CARE T ESTING [facility] [employer] [facility] CLIA# [id number] [address] [place] [address] * (ABNORMAL) POC GLUCOSE (12/07/2017 7:55 AM CDT) GLUCOSE POC 126(H) 74 - 99 mg/dL 12/07/2017 8:33 AM CDT [facility] LABORATORY SERVICES [facility] [employer] NAME POC SHIVANI BROWNINE 12/07/2017 8:33 AM CDT [facility] LABORATORY [facility] Whole blood specimen (specimen) 12/07/2017 7:55 AM CDT 12/07/2017 8:33 AM CDT Stephanie Babin MD POINT OF CARE T ESTING Performing Organization Address [facility] Co de Phone Number [facility] [employer] [facility]# [id number] [address] [place] [address] * (ABNORMAL) TRIGLYCERIDE (12/07/2017 7:14 AM CDT) TRIGLYCERIDE 1,058(H) <150 mg/dL 12/07/2017 8:19 AM CDT [facility] [employer] [facility] Blood Venipuncture / Unknown 12/07/2017 7:14 AM CDT 12/07/2017 7:18 AM CDT Narrative [facility] [employer] [facility] - 12/07/2017 8:19 AM CDT TRIGLYCERIDES ? mg/dL Normal ?< 150 Borderline High ?150 - 199 High ? 200 - 499 Very High ? >= 500 Based on AHA/NCEP Guidelines. Angie Louis MD CHEMISTRY ORDERABLES Performing Organization Address [facility] de Phone Number [facility] [employer] [facility]# [id number] [address] [place] [address] * (ABNORMAL) BASIC METABOLIC PANEL (12/07/2017 7:14 AM CDT) SODIUM 136 136 - 145 mmol/L 12/07/2017 7:56 AM CDT [facility] LABORATORY SERVICES [facility] POTASSIUM 3.8 3.5 - 5.0 mmol/L 12/07/2017 7:56 AM CDT [facility] LABORATORY [facility] CHLORIDE 99 98 - 107 mmol/L 12/07/2017 7:56 AM CDT [facility] SERVICES - [facility] CO2 22 22 - 29 mmol/L 12/07/2017 7:56 AM [facility] LABORATORY SERVICES - . [facility] CALCIUM 9.1 8.6 - 10.2 mg/dL 12/07/2017 7:56 AM [facility] LABORATORY [facility] - . [facility] BUN 3(L) 6 - 20 mg/dL 12/07/2017 7:56 AM [facility] LABORATORY [facility] - . [facility] CREATININE 0.56 0.51 - 0.95 mg/dL 12/07/2017 7:56 AM [facility] LABORATORY [facility] - . [facility] GLUCOSE 119(H) 74 - 99 mg/dL 12/07/2017 7:56 AM [facility] LABORATORY [facility] - [facility] GFR >60 >=60 mL/min/1.7 3 sq meter 12/07/2017 7:56 AM [facility] LABORATORY [facility] - [facility] Comment: eGFR has not [...] mL/min/1.7 3 sq meter 12/07/2017 7:56 AM [facility] LABORATORY SERVICES - [facility] ANION GAP 15 8 - 16 mmol/L 12/07/2017 7:56 AM [facility] LABORATORY [facility] - [facility] Blood Venipuncture / Unknown 12/07/2017 7:14 AM CDT 12/07/2017 7:18 AM CDT Uzma Yusuf MD CHEMISTRY ORDER OSVALDO [facility] [employer] [facility] CLIA# [id number] [address] [facility] [address] [address] * (ABNORMAL) CBC WITH DIFFERENTIAL (12/07/2017 7:14 AM CDT) WBC 7.1 4.0 - 9.8 K/uL 12/07/2017 7:29 AM CDT [facility] LABORATORY SERVICES - [facility] RBC 3.82(L) 3.90 - 4.90 M/uL 12/07/2017 7:29 AM CDT [facility] LABORATORY SERVICES - [facility] HEMOGLOBIN 11.6(L) 11.8 - 14.8 g/dL 12/07/2017 7:29 AM CDT [facility] LABORATORY SERVICES - [facility] HEMATOCRIT 34.9(L) 35.5 - 44.0 % 12/07/2017 7:29 AM CDT [facility] LABORATORY SERVICES - [facility] MCV 91.4 82.0 - 99.0 fL 12/07/2017 7:29 AM CDT [facility] LABORATORY SERVICES - [facility] MCH 30.4 27.2 - 32.6 pg 12/07/2017 7:29 AM CDT [facility] LAB[facility]ATORY SERVICES - [facility] MCHC 33.2 31.5 - 35.5 g/dL 12/07/2017 7:29 AM CDT [facility] LAB[facility]ATORY SERVICES - [facility] RDW 14.7(H) 11.5 - 14.5 % 12/07/2017 7:29 AM CDT [facility] LABORATORY SERVICES - [facility] RDW-STDEV 49.4(H) 37.1 - 48.7 fL 12/07/2017 7:29 AM CDT [facility] LABORATORY SERVICES - [facility] PLATELETS 181 140 - 350 K/uL 12/07/2017 7:29 AM CDT [facility] LABORATORY SERVICES - [facility] MPV 9.3 9.3 - 12.4 fL 12/07/2017 7:29 AM CDT [facility] LABORATORY SERVICES - . [facility] NEUTROPHILS 65 % 12/07/2017 7:29 AM CDT [facility]ATORY SERVICES [facility] LYMPHOCYTES 27 % 12/07/2017 7:29 AM CDT [facility] LABORATORY SERVICES - [facility] MONOCYTES 5 % 12/07/2017 7:29 AM CDT [facility]ATORY [facility] EOSINOPHILS 2 % 12/07/2017 7:29 AM CDT [facility] LABORATORY SERVICES - . [facility] BASOPHILS 1 % 12/07/2017 7:29 AM CDT [facility] LABORATORY SERVICES - . [facility] IMMATURE GRANULOCYTES 0 % 12/07/2017 7:29 AM CDT [facility] LABORATORY SERVICES - . [facility] NEUTROPHIL ABSOLUTE 4.61 1.90 - 7.00 K/uL 12/07/2017 7:29 AM CDT [facility] LABORATORY SERVICES - . [facility] LYMPHOCYTE ABSOLUTE 1.93 0.70 - 4.50 K/uL 12/07/2017 7:29 AM CDT [facility] LABORATORY SERVICES - . [facility] MONOCYTE ABSOLUTE 0.38 0.10 - 1.30 K/uL 12/07/2017 7:29 AM CDT [facility] LABORATORY SERVICES [facility] EOSINOPHIL ABSOLUTE 0.13 0.00 - 0.70 K/uL 12/07/2017 7:29 AM CDT [facility] LAB[facility]ATORY SERVICES [facility] BASOPHILS ABSOLUTE 0.05 0.00 - 0.20 K/uL 12/07/2017 7:29 AM CDT [facility] LABORATORY SERVICES - . [facility] IMMATURE GRANULOCYTES ABSOLUTE 0.03 0.00 - 0.03 K/uL 12/07/2017 7:29 AM CDT [facility] LABORATORY SERVICES - [facility] Blood Venipuncture / Unknown 12/07/2017 7:14 AM CDT 12/07/2017 7:18 AM CDT Uzma Yusuf MD HEMATOLOGY YONI SERRANO [facility] [employer] [facility]# [id number] [address] [facility] [place] [address] * (ABNORMAL) POC GLUCOSE (12/07/2017 4:58 AM CDT) [facility] Signature GLUCOSE POC 105(H) 74 - 99 mg/dL 12/07/2017 5:22 AM CDT [facility] LABORATORY SERVICES - [facility] [employer] NAME POC MYRTLE WHITNEY FRANKSN 12/07/2017 5:22 AM CDT [facility] LABORATORY SERVICES - [facility] Whole blood specimen (specimen) 12/07/2017 4:58 AM CDT 12/07/2017 5:22 AM CDT Uzma Yusuf MD POINT OF CARE T ESTING [facility] [employer] [facility]# [id number] [address] [place] [address] * (ABNORMAL) POC GLUCOSE (12/07/2017 12:27 AM CDT) GLUCOSE POC 109(H) 74 - 99 mg/dL 12/07/2017 12:42 AM CDT [facility] [employer] [facility] COMMENT, GLU POC Notified RN/MD 12/07/2017 12:42 AM CDT [facility] LABORATORY [facility] [employer] NAME POC WHITNEY IRAHETA 12/07/2017 12:42 AM CDT [facility] [employer] [facility] Whole blood specimen (specimen) 12/07/2017 12:27 AM CDT 12/07/2017 12:42 AM CDT Uzma Yusuf MD POINT OF CARE T ESTING Performing Organization Address [facility] Co de Phone Number [facility]# [id number] [address] [place] [address] * PROTEIN/CREATININE RATIO, URINE (12/06/2017 8:21 PM CDT) [facility] PROTEIN CONCENTRATION <6 0 - 20 mg/dL 12/06/2017 9:02 PM CDT [facility] [employer] [facility] CREATININE, URINE 62.4 29.0 - 226.0 mg/dL 12/06/2017 9:02 PM CDT [facility] [employer] [facility] Comment: Reference Range varies with fluid intake and diet. PROTEIN/CREAT RATIO, URINE <0.10 0.00 - 0.19 mg/mg Creatinine 12/06/2017 9:02 PM CDT [facility] [employer] [facility] Urine URINE SPECIMEN OBTAINED BY CLEAN CATCH PROCEDURE / Unknown Collection / Unknown 12/06/2017 8:21 PM CDT 12/06/2017 8:27 PM CDT Uzma Yusuf MD URINE ORDERABLE S Performing Organization Address City/[facility]/ZIP Co de Phone Number [facility] LABORATORY SERVICES [facility] CLIA# [id number] [address] [place] [address] * (ABNORMAL) POC GLUCOSE (12/06/2017 8:15 PM CDT) GLUCOSE POC 111(H) 74 - 99 mg/dL 12/06/2017 8:28 PM CDT [facility] LABORATORY SERVICES [facility] COMMENT, GLU POC Notified RN/ 12/06/2017 8:28 PM CDT [facility] LABORATORY SERVICES [facility] [employer] NAME POC WHITNEY IRAHETA 12/06/2017 8:28 PM CDT [facility] LABORATORY SERVICES [facility] Whole blood specimen (specimen) 12/06/2017 8:15 PM CDT 12/06/2017 8:28 PM CDT Uzma Yusuf MD POINT OF CARE T ESTING [facility] LABORATORY [facility] CLIA# [id number] [address] [place] [address] * (ABNORMAL) POC GLUCOSE (12/06/2017 4:53 PM CDT) GLUCOSE POC 103(H) 74 - 99 mg/dL 12/06/2017 5:08 PM CDT [facility] LABORATORY SERVICES [facility] COMMENT, GLU POC Notified CLAU/ 12/06/2017 5:08 PM CDT [facility] LABORATORY SERVICES [facility] [employer] NAME POC VICK VANCE 12/06/2017 5:08 PM CDT [facility] LABORATORY SERVICES [facility] Whole blood specimen (specimen) 12/06/2017 4:53 PM CDT 12/06/2017 5:08 PM CDT Uzma Yusuf MD POINT OF CARE T ESTING [facility] LABORATORY [facility] CLIA# [id number] [address] [place] [address] * (ABNORMAL) POC GLUCOSE (12/06/2017 12:09 PM CDT) GLUCOSE POC 106(H) 74 - 99 mg/dL 12/06/2017 12:22 PM CDT [facility] LABORATORY [facility] [employer] NAME ROSALVA MARIN 12/06/2017 12:22 PM CDT [facility] LABORATORY SERVICES [facility] Whole blood specimen (specimen) 12/06/2017 12:09 PM CDT 12/06/2017 12:22 PM CDT Uzma Yusuf MD POINT OF CARE T ESTING [facility] [employer] [facility]# [id number] [address] [place] [address] * (ABNORMAL) POC GLUCOSE (12/06/2017 8:34 AM CDT) GLUCOSE POC 112(H) 74 - 99 mg/dL 12/06/2017 8:48 AM CDT [facility] LABORATORY [facility] [employer] NAME ROSALVA MARIN 12/06/2017 8:48 AM CDT [facility] LABORATORY [facility] Whole blood specimen (specimen) 12/06/2017 8:34 AM CDT 12/06/2017 8:48 AM CDT Uzma Yusuf MD POINT OF CARE T ESTING [facility] CLNV# [id number] [address] [place] [address] * (ABNORMAL) TRIGLYCERIDE (12/06/2017 6:56 AM CDT) TRIGLYCERIDE 1,107(H) <150 mg/dL 12/06/2017 8:15 AM CDT [facility] LABORATORY [facility] Blood Venipuncture / Unknown 12/06/2017 6:56 AM CDT 12/06/2017 7:27 AM CDT Narrative [facility] LABORATORY [facility] - 12/06/2017 8:15 AM CDT TRIGLYCERIDES ? mg/dL Normal ?< 150 Borderline High ?150 - 199 High ? 200 - 499 Very High ? >= 500 Based on AHA/NCEP Guidelines. Angie Louis MD CHEMISTRY ORDERABLES Performing Organization Address [facility] Co de Phone Number [facility]# [id number] [address] [place] [address] * (ABNORMAL) POC GLUCOSE (12/06/2017 5:47 AM CDT) GLUCOSE POC 113(H) 74 - 99 mg/dL 12/06/2017 6:01 AM CDT [facility] [employer] NAME JIGNA RAGLAND 12/06/2017 6:01 AM CDT [facility] Whole blood specimen (specimen) 12/06/2017 5:47 AM CDT 12/06/2017 6:01 AM CDT Uzma Yusuf MD POINT OF CARE T ESTING Performing Organization Address [facility] de Phone Number [facility] [employer] [facility]# [id number] [address] [place] [address] * (ABNORMAL) POC GLUCOSE (12/06/2017 1:40 AM CDT) GLUCOSE POC 116(H) 74 - 99 mg/dL 12/06/2017 1:55 AM CDT [facility] [employer] NAME JIGNA RAGLAND 12/06/2017 1:55 AM CDT [facility] Whole blood specimen (specimen) 12/06/2017 1:40 AM CDT 12/06/2017 1:55 AM CDT Uzma Yusuf MD POINT OF CARE T ESTING [facility] CLIA# [id number] [address] [place] [address] * (ABNORMAL) POC GLUCOSE (12/05/2017 9:45 PM CDT) GLUCOSE POC 123(H) 74 - 99 mg/dL 12/05/2017 9:59 PM CDT [facility]OR[facility] SERVICES [facility] [employer] NAME POC JIGNA MARTINEZ 12/05/2017 9:59 PM CDT [facility] Whole blood specimen (specimen) 12/05/2017 9:45 PM CDT 12/05/2017 9:58 PM CDT Uzma Yusuf MD POINT OF CARE T ESTING Performing Organization Address [facility]/State/ZIP Co de Phone Number [facility] CLIA# [id number] [address] [place] [address] * (ABNORMAL) POC GLUCOSE (12/05/2017 5:11 PM CDT) GLUCOSE POC 112(H) 74 - 99 mg/dL 12/05/2017 6:09 PM CDT [facility] SERVICES [facility] [employer] NAME POC ABHAY BEATTY 12/05/2017 6:09 PM CDT [facility] Whole blood specimen (specimen) 12/05/2017 5:11 PM CDT 12/05/2017 6:09 PM CDT Uzma Yusuf MD POINT OF CARE T ESTING [facility] CLIA# [id number] [address] [place] [address] * (ABNORMAL) POC GLUCOSE (12/05/2017 1:48 PM CDT) GLUCOSE POC 143(H) 74 - 99 mg/dL 12/05/2017 2:00 PM CDT [facility] [employer] NAME POC OMERCEHAIC , GREG 12/05/2017 2:00 PM CDT [facility] Whole blood specimen (specimen) 12/05/2017 1:48 PM CDT 12/05/2017 2:00 PM CDT Uzma Yusuf MD POINT OF CARE T ESTING Performing Organization Address [facility]/ZIP Co de Phone Number [facility] [employer] [facility] CLIA# [id number] [address] [place] [address] * (ABNORMAL) POC GLUCOSE (12/05/2017 9:24 AM CDT) GLUCOSE POC 155(H) 74 - 99 mg/dL 12/05/2017 9:40 AM CDT [facility] LABORATORY [facility] [employer] NAME POC OMERCEHAIC , GREG 12/05/2017 9:40 AM CDT [facility] LABORATORY [facility] Whole blood specimen (specimen) 12/05/2017 9:24 AM CDT 12/05/2017 9:40 AM CDT Uzam Yuusf MD POINT OF CARE T ESTING Performing Organization Address City/[facility]/ZIP Co de Phone Number [facility] [employer] [facility] CLIA# [id number] [address] [place] [address] * (ABNORMAL) TRIGLYCERIDE (12/05/2017 7:23 AM CDT) TRIGLYCERIDE 1,462(H) <150 mg/dL 12/05/2017 8:20 AM CDT [facility] LABORATORY [facility] Blood Venipuncture / Unknown 12/05/2017 7:23 AM CDT 12/05/2017 7:29 AM CDT Narrative [facility] LABORATORY [facility] - 12/05/2017 8:20 AM CDT TRIGLYCERIDES ? mg/dL Normal ?< 150 Borderline High ?150 - 199 High ? 200 - 499 Very High ? >= 500 Based on AHA/NCEP Guidelines. Angie Louis MD CHEMISTRY ORDERABLES Performing Organization Address [facility] Co de Phone Number [facility] [employer] [facility] CLIA# [id number] [address] [place] [address] * (ABNORMAL) CALCIUM IONIZED (12/05/2017 7:23 AM CDT) PH, VENOUS 7.34 7.32 - 7.43 12/05/2017 7:35 AM CDT [facility] LABORATORY [facility] CALCIUM IONIZED 4.5(L) 4.8 - 5.2 mg/dL 12/05/2017 7:35 AM CDT [facility] [employer] [facility] Blood Venipuncture / Unknown 12/05/2017 7:23 AM CDT 12/05/2017 7:35 AM CDT Angie Louis MD CHEMISTRY ORDERABLES Performing Organization Address [facility] Co de Phone Number [facility] [employer] [facility] [id number] [address] [place] [address] * (ABNORMAL) POC GLUCOSE (12/05/2017 3:55 AM CDT) GLUCOSE POC 150(H) 74 - 99 mg/dL 12/05/2017 4:07 AM CDT [facility] LABORATORY [facility] COMMENT, GLU POC Notified RN/ 12/05/2017 4:07 AM CDT [facility] LABORATORY SERVICES [facility] [employer] NAME POC VICK VANCE 12/05/2017 4:07 AM CDT [facility] LABORATORY SERVICES [facility] Whole blood specimen (specimen) 12/05/2017 3:55 AM CDT 12/05/2017 4:07 AM CDT Puja Pagan MD POINT OF CARE TESTIN G Performing Organization Address [facility]/ZIP Co de Phone Number [facility] LABORATORY [facility] CLIA# [id number] [address] [place] [address] * (ABNORMAL) POC GLUCOSE (12/04/2017 10:30 PM CDT) GLUCOSE POC 132(H) 74 - 99 mg/dL 12/04/2017 10:46 PM CDT [facility] LABORATORY [facility] COMMENT, GLU POC Notified RN/MD 12/04/2017 10:46 PM CDT [facility] LABORATORY [facility] [employer] NAME POC NIMESH VANCEGIE 12/04/2017 10:46 PM CDT [facility] LABORATORY [facility] Whole blood specimen (specimen) 12/04/2017 10:30 PM CDT 12/04/2017 10:46 PM CDT Puja Pagan MD POINT OF CARE TESTIN G Performing Organization Address [facility] Co de Phone Number [facility] [employer] [facility] CLIA# [id number] [address] [place] [address] * (ABNORMAL) TSH (12/04/2017 8:23 PM CDT) TSH 39.54(H) 0.27 - 4.20 uIU/mL 12/04/2017 11:35 PM CDT [facility] LABORATORY [facility] Blood BLOOD SPECIMEN / Unknown Venipuncture / Unknown 12/04/2017 8:23 PM CDT 12/04/2017 8:30 PM CDT Angie Louis MD CHEMISTRY ORDERABLES [facility] [employer] [facility]# [id number] [address] [place] [address] * (ABNORMAL) HEMOGLOBIN A1C (12/04/2017 8:23 PM CDT) HEMOGLOBIN A1C 8.3(H) 4.0 - 6.0 % 12/04/2017 10:09 PM CDT [facility] LABORATORY [facility] EST. AVG GLUCOSE, A1C 192 mg/dL 12/04/2017 10:09 PM CDT [facility] LABORATORY [facility] Blood BLOOD SPECIMEN / Unknown Venipuncture / Unknown 12/04/2017 8:23 PM CDT 12/04/2017 8:30 PM CDT Narrative [facility] LABORATORY [facility] - 12/04/2017 10:09 PM CDT HGB A1C INTERPRETATION NORMAL: ? <5.7% PRE-DIABETES: 5.7 - 6.4% DIABETES: ? 6.5% OR GREATER Angie Louis MD CHEMISTRY ORDERABLES Performing Organization Address City/[facility]/ZIP Co de Phone Number [facility] [employer] [facility] CLNV# [id number] [address] [place] [address] * (ABNORMAL) C-REACTIVE PROTEIN (12/04/2017 8:23 PM CDT) CRP 7.7(H) <5.0 mg/L 12/04/2017 9:09 PM CDT [facility] LABORATORY [facility] Blood BLOOD SPECIMEN / Unknown Venipuncture / Unknown 12/04/2017 8:23 PM CDT 12/04/2017 8:30 PM CDT Angie Louis MD CHEMISTRY ORDERABLES [facility] [employer] [facility]# [id number] [address] [place] [address] * SEDIMENTATION RATE (12/04/2017 8:23 PM CDT) ESR (SEDIMENTATION RATE) 13 <=20 mm/Hr 12/04/2017 9:10 PM CDT [facility] LABORATORY [facility] Blood BLOOD SPECIMEN / Unknown Venipuncture / Unknown 12/04/2017 8:23 PM CDT 12/04/2017 8:30 PM CDT Angie Louis MD HEMATOLOGY ORDERABLE S [facility]# [id number] [address] [place] [address] * LIPASE (12/04/2017 8:23 PM CDT) Pathologist [facility] LIPASE 19 13 - 60 U/L 12/04/2017 9:09 PM CDT [facility] Blood BLOOD SPECIMEN / Unknown Venipuncture / Unknown 12/04/2017 8:23 PM CDT 12/04/2017 8:30 PM CDT Angie Louis MD CHEMISTRY ORDERABLES Performing Organization Address [facility]/ZIP Co de Phone Number [facility]# [id number] [address] [place] [address] * LACTIC ACID (12/04/2017 8:23 PM CDT) Pathologist [facility] LACTIC ACID 0.9 0.5 - 2.0 mmol/L 12/04/2017 8:58 PM CDT [facility] LABORATORY [facility] Blood BLOOD SPECIMEN / Unknown Venipuncture / Unknown 12/04/2017 8:23 PM CDT 12/04/2017 8:31 PM CDT Angie Louis MD CHEMISTRY ORDERABLES Performing Organization Address City/[facility]/ZIP Co de Phone Number [facility]# [id number] [address] [place] [address] * (ABNORMAL) COMPREHENSIVE METABOLIC PANEL (12/04/2017 8:23 PM CDT) SODIUM 132(L) 136 - 145 mmol/L 12/04/2017 9:09 PM T [facility] POTASSIUM 3.4(L) 3.5 - 5.0 mmol/L 12/04/2017 9:09 PM T [facility] CHLORIDE 98 98 - 107 mmol/L 12/04/2017 9:09 PM T [facility] CO2 24 22 - 29 mmol/L 12/04/2017 9:09 PM T [facility] CALCIUM 8.0(L) 8.6 - 10.2 mg/dL 12/04/2017 9:09 PM T [facility] BUN 5(L) 6 - 20 mg/dL 12/04/2017 9:09 PM T [facility] CREATININE 0.53 0.51 - 0.95 mg/dL 12/04/2017 9:09 PM T [facility] GLUCOSE 122(H) 74 - 99 mg/dL 12/04/2017 9:09 PM T [facility] TOTAL PROTEIN 6.5(L) 6.7 - 8.6 g/dL 12/04/2017 9:09 PM T [facility] ALBUMIN 4.0 3.5 - 5.2 g/dL 12/04/2017 9:09 PM T [facility] BILIRUBIN TOTAL 0.2(L) 0.3 - 1.2 mg/dL 12/04/2017 9:09 PM CDT [facility] ALKALINE PHOSPHATASE 58 35 - 104 U/L 12/04/2017 9:09 PM CDT [facility] AST 15 <33 U/L 12/04/2017 9:09 PM CDT [facility] ALT 11 <34 U/L 12/04/2017 9:09 PM T [facility] GFR >60 >=60 mL/min/1.7 3 sq meter 12/04/2017 9:09 PM T [facility] [employer] [facility] Comment: eGFR has not been validated for [...] 3 sq meter 12/04/2017 9:09 PM CDT [facility] LABORATORY [facility] ANION GAP 10 8 - 16 mmol/L 12/04/2017 9:09 PM T [facility] [employer] [facility] Blood BLOOD SPECIMEN / Unknown Venipuncture / Unknown 12/04/2017 8:23 PM CDT 12/04/2017 8:30 PM CDT Narrative [facility] LABORATORY [facility] - 12/04/2017 9:09 PM CDT Samples containing indocyanine green cause interferences on Total and/or Direct Bilirubin and must not be measured. Angie Louis MD CHEMISTRY ORDERABLES [facility] [employer] [facility]# [id number] [address] [facility] [place] [address] * (ABNORMAL) LIPID PANEL (12/04/2017 8:23 PM CDT) [facility] CHOLESTEROL 350(H) <200 mg/dL 12/04/2017 9:26 PM T [facility] LABORATORY [facility] TRIGLYCERIDE 1,496(H) <150 mg/dL 12/04/2017 9:26 PM T [facility] [employer] [facility] HDL 40 - 59 mg/dL 12/04/2017 9:26 PM T [facility] [employer] [facility] Comment: Measured HDL is not accurate when the Triglyceride value exceeds 1200. LDL CALCULATED <100 mg/dL 12/04/2017 9:26 PM CDT [facility] Comment:Calculated LDL is no t accurate when the Triglyceride value exceeds 400. NON-HDL CHOLESTEROL <130 mg/dL 12/04/2017 9:26 PM CDT [facility] Comment:Non HDL Cholesterol cannot be calculated when the HDL value is suppressed. Blood BLOOD SPECIMEN / Unknown Venipuncture / Unknown 12/04/2017 8:23 PM CDT 12/04/2017 8:30 PM CDT [facility] - 12/04/2017 9:26 PM CDT TOTAL CHOLESTEROL [...] Panels (NCEP/AMA) Angie Louis MD CHEMISTRY ORDERABLES [facility]# [id number] [address] [facility] [place] [address] * (ABNORMAL) CBC WITH DIFFERENTIAL (12/04/2017 8:23 PM CDT) WBC 7.7 4.0 - 9.8 K/uL 12/04/2017 8:46 PM CDT [facility] RBC 3.79(L) 3.90 - 4.90 M/uL 12/04/2017 8:46 PM CDT [facility] HEMOGLOBIN 11.4(L) 11.8 - 14.8 g/dL 12/04/2017 8:46 PM CDT [facility] HEMATOCRIT 34.3(L) 35.5 - 44.0 % 12/04/2017 8:46 PM T [facility] - . [facility] MCV 90.5 82.0 - 99.0 fL 12/04/2017 8:46 PM [facility] - [facility] MCH 30.1 27.2 - 32.6 pg 12/04/2017 8:46 PM [employer] [facility] SERVICES - [facility] MCHC 33.2 31.5 - 35.5 g/dL 12/04/2017 8:46 PM [facility] - [facility] RDW 14.7(H) 11.5 - 14.5 % 12/04/2017 8:46 PM [facility] RDW-STDEV 49.2(H) 37.1 - 48.7 fL 12/04/2017 8:46 PM [employer] [facility] - [facility] PLATELETS 208 140 - 350 K/uL 12/04/2017 8:46 PM [employer] [facility] - [facility] MPV 9.0(L) 9.3 - 12.4 fL 12/04/2017 8:46 PM [facility] - . [facility] NEUTROPHILS 64 % 12/04/2017 8:46 PM [facility] LYMPHOCYTES 28 % 12/04/2017 8:46 PM [employer] [facility] - . [facility] MONOCYTES 5 % 12/04/2017 8:46 PM [employer] [facility] - [facility] EOSINOPHILS 1 % 12/04/2017 8:46 PM [employer] [facility] - [facility] BASOPHILS 1 % 12/04/2017 8:46 PM [facility] - . [facility] IMMATURE GRANULOCYTES 1 % 12/04/2017 8:46 PM [facility] - . [facility] Comment:IG (Immature Granulo cyte) count includes Metamyelocytes, Myelocytes, and Promyelocytes NEUTROPHIL ABSOLUTE 4.92 1.90 - 7.00 K/uL 12/04/2017 8:46 PM CDChina [employer] [facility] SERVICES - . [facility] LYMPHOCYTE ABSOLUTE 2.17 0.70 - 4.50 K/uL 12/04/2017 8:46 PM CD[employer] [facility] - . [facility] MONOCYTE ABSOLUTE 0.36 0.10 - 1.30 K/uL 12/04/2017 8:46 PM CDT [facility] LABORATORY SERVICES - . [facility] EOSINOPHIL ABSOLUTE 0.10 0.00 - 0.70 K/uL 12/04/2017 8:46 PM CDT [facility] LABORATORY SERVICES [facility] BASOPHILS ABSOLUTE 0.04 0.00 - 0.20 K/uL 12/04/2017 8:46 PM CDT [facility] LABORATORY SERVICES - . [facility] IMMATURE GRANULOCYTES ABSOLUTE 0.08(H) 0.00 - 0.03 K/uL 12/04/2017 8:46 PM CDT [facility] LABORATORY SERVICES - . [facility] Blood BLOOD SPECIMEN / Unknown Venipuncture / Unknown 12/04/2017 8:23 PM CDT 12/04/2017 8:30 PM CDT Angie Louis MD HEMATOLOGY ORDERABLE S [facility] LABORATORY SERVICES [facility]# [id number] [address] [facility] [place] [address] documented in this encounter Visit Diagnoses Diagnosis [...] 400 mg, Oral, DAILY, First dose on Aktie 12/05/17 at 0900, Until Discontinued, Routine Given [...] Routine 0924 (Given - Provider: Savana Leon, CALU) 1012 (Given - Provider: Matteo Curtis, CLAU) [...] Provider: Yamil Gonzalez RN)1036 (Given - Provider: Puja Fonseca RN) LORazepam (ATIVAN) tablet 1 mg [...] RN) documented in this encounter Care Teams Senior Oracle Applications Developer Relationship Specialty Start Date End Date Nomfc, External Provider PCP - General 12/06/17 8 documented as of this encounter
--- OUTSIDE RECORDS SUMMARY | 2024-05-03 22:00 | XMS_ITS | Encounter Summary ---
Author Organization [facility] Address [address] [place] [address] Care Team Providers Care Cable Former Name Role Phone Unavailable Primary Care Provider Unavailabl e Reason for Visit * Reason Onset Date Comments Medication Refill 01/08/2012 Encounter Details Date Type Department Care Team (Late Contact Info) Description 01/08/2012 Refill [facility] Endocrinology [address] [place] [address] Prudence Gates MD [address] [place], [place] [id number] Unspecified hypothyroidism (Primary Dx) Social History Tobacco [facility] [facility] [address] [place] [address] Marlys Mayer MD [address] [place] [address] documented as of this encounter Visit Diagnoses Diagnosis Unspecified hypothyroidism- Primary documented in this encounter
--- OUTSIDE RECORDS SUMMARY | 2024-05-03 22:00 | XMS_ITS | Encounter Summary ---
Author Organization [facility] Address [address] [place] [address] Care Team Providers Care Parking Control Officer Name Role Phone Unavailable Primary Care Provider Unavailabl e Encounter Details Date Type Department Care Team (Late Contact Info) Description 09/17/2011 Orders Only [facility] Endocrinology [address] [place] [phone] Prudence Gates MD [address] [place] [address] Social History Tobacco Use Types Packs/Day Years [...] and Vascular - [place] [address] [place] [address] Marlys Mayer MD [address] [place] [address] documented as of this encounter Visit Diagnoses Not on filedocumented in this encounter
--- OUTSIDE RECORDS SUMMARY | 2024-05-03 22:00 | XMS_ITS | Encounter Summary ---
Author Organization Address [address] [place] [address] Care Team Providers Care Bindery Supervisor Name Role Phone Unavailable Primary Care Provider Unavailabl e Reason for Visit * Reason Onset Date Comments Results 05/30/2011 Encounter Details Date Type Department Care Team (Late st Contact Info) Description 05/30/2011 Telephone [facility] Endocrinology [address] [place] [address] Sagrario Gates MD [address] [place] [address] Results Social History Tobacco Use Types Packs/Day [...] Forwarded copy of report to Dr Mitchell ER GAS * Telephone Encounter - David Richardson - [...] have one, refer to GI Thank you ER GAS documented in this encounter Plan of Treatment Upcoming Encounters Date Type Department Care Team (Late st Contact Info) Description 09/14/2024 3:00 PM CDT Office Visit [facility] Heart and Vascular - [place] [address] [place] [address] Marlys Mayer MD [address] [place] [address] documented as of this encounter Procedures Procedure Name Priority Date/Time Associated Diagnosis Comments TSH Routine 06/01/2011 8:46 AM WELDER GAS documented in this encounter Results * TSH (06/01/2011 8:46 AM WELDER GAS) TSH 3.11 mIU/L [employer] [facility] Comment: Reference Range > or = 20 Years ??0.40-4.50 ? Ranges First trimester ?0.20-4.70 Second trimester ?? 0.30-4.10 Third trimester ?0.40-2.70 REPORT COMMENT: COLLECTION REQUIREMENTS NOT MET. PATIENT ADVISED TO RETURN. Test Performed at: [employer] [facility] [address] [place], [place] ??[address] DELMA MAURER DO,MPH 06/01/2011 8:46 AM WELDER GAS Sagrario Gates MD CHEMISTRY ORDERAB LES INTERFACE SYSTEM Refer to clinic/hospital department [employer] [facility] [address] [place] [address] documented in this encounter Visit Diagnoses Not on filedocumented in this encounter
--- OUTSIDE RECORDS SUMMARY | 2024-05-03 22:00 | XMS_ITS | Encounter Summary ---
Author Organization [facility] Address [address] [place] [address] Care Team Providers Care Machine Biller Name Role Phone Unavailable Primary Care Provider Unavailabl e Reason for Visit * Reason Onset Date Comments Results 06/05/2011 Encounter Details Date Type Department Care Team (Late st Contact Info) Description 06/05/2011 Telephone [facility] Endocrinology [address] [place] [address] Sagrario Gates MD [address] [place] [address] Results Social History Tobacco Use Types Packs/Day [...] dose increase , quest lab order placed R POST MACHINE OPERATOR * Telephone Encounter - David Richardson - [...] correctly TSH in 6 weeks Thank you R POST MACHINE OPERATOR documented in this encounter Plan of Treatment Upcoming Encounters Date Type Department Care Team (Late st Contact Info) Description 09/14/2024 3:00 PM CDT Office Visit [facility] Heart and Vascular - [place] [address] [place] [phone] Marlys Mayer MD [address] [place] [address] Scheduled Orders Name Type Priority Associated Diagnoses Orde r Schedule TSH Lab Routine Unspecified hypothyroidism Ordered: 06/05/2011 documented as of this encounter Procedures Procedure Name Priority Date/Time Associated Diagnosis Comments LIPID PANEL Routine 06/19/2011 9:41 AM CHAIR POST MACHINE OPERATOR documented in this encounter Results * (ABNORMAL) LIPID PANEL (06/19/2011 9:41 AM CHAIR POST MACHINE OPERATOR) CHOLESTEROL 224(H) 125 - 200 mg/dL [facility] Comment: Test Performed at: [address] ??[address] DELMA MAURER DO HDL 25(L) > OR = 46 mg/dL [facility] TRIGLYCERIDE 543(H) <150 mg/dL [facility] LDL CALCULATED <130 mg/dL (calc) [facility] Comment: LDL cholesterol not calculated. Triglyceride levels greater than 400 mg/dL invalidate calculated LDL results. Desirable range <100 mg/dL for patients with CHD or diabetes and <70 mg/dL for diabetic patients with known heart disease. CHOL/HDL RATIO 9.0(H) < OR = 5.0 (calc) [facility] Comment: REPORT COMMENT: SPLIT 06/01/2011 FROM [id number] FASTING 06/19/2011 9:41 AM CHAIR POST MACHINE OPERATOR 06/19/2011 1:28 PM CHAIR POST MACHINE OPERATOR Sagrario Gates MD CHEMISTRY ORDERAB LES INTERFACE SYSTEM Refer to clinic/hospital department [facility] [address] [address] documented in this encounter Visit Diagnoses Diagnosis Unspecified hypothyroidism- Primary documented in this encounter
--- OUTSIDE RECORDS SUMMARY | 2024-05-03 22:00 | XMS_ITS | Encounter Summary ---
Author Organization [facility] Address [address] [place] [address] Care Team Providers Care Commodity Buyer Name Role Phone Unavailable Primary Care Provider Unavailabl e Reason for Visit * Reason Onset Date Comments Medication Refill 03/19/2013 Encounter Details Date Type Department Care Team (Late st Contact Info) Description 03/19/2013 Telephone [facility] Endocrinology [address] [place] [address] Prudence Gates MD [address] [place] [address] Medication Refill Social History Tobacco Use Types [...] , forwarded note to ruben for letter ATIENT SERVICES DIRECTOR * Telephone Encounter - Prudence Gates MD - 03/20/2013 2:59 PM OUTPATIENT SERVICES DIRECTOR I refilled her meds x 30 days, please send discharge letter, since she cancelled and also no showed ATIENT SERVICES DIRECTOR * Telephone Encounter - Suze Jackson - 03/19/2013 6:31 PM CST Pharm sent refill request for her levothyroxoine and crestor . Pt last seen 05/21/12 , she canceled 11/17/12 and n/s 12/15/2012. What do you want to do , one mo and send warning letter? ATIENT SERVICES DIRECTOR documented in this encounter Plan of Treatment Upcoming Encounters Date Type Department Care Team (Late st Contact Info) Description 09/14/2024 3:00 PM CDT Office Visit [facility] Heart and Vascular - [place] [address] [place] [address] Marlys Mayer MD [address] [place] [address] documented as of this encounter Visit Diagnoses Diagnosis Unspecified hypothyroidism- Primary documented in this encounter
--- OUTSIDE RECORDS SUMMARY | 2024-05-03 22:00 | XMS_ITS | Encounter Summary ---
Author Organization [facility] Address [address] [place] [address] Care Team Providers Care Public Events Facilities Rental Manager Name Role Phone Unavailable Primary Care Provider Unavailabl e Reason for Visit * Reason Onset Date Comments Medication Refill 01/09/2012 Encounter Details Date Type Department Care Team ([facility] Contact Info) Description 01/09/2012 Refill [facility] Endocrinology [address] [place] [address] Prudence Gates MD [address] [place], [place] [id number] Social History Tobacco Use Types Packs/Day Years [...] Upcoming Encounters Date Type Department Care Team ([facility] Contact Info) Description 09/14/2024 3:00 PM CDT Office Visit [facility] Heart and Vascular - [facility] [address] [place] [address] Marlys Mayer MD [address] [place] [address] documented as of this encounter Visit Diagnoses Not on filedocumented in this encounter
--- OUTSIDE RECORDS SUMMARY | 2024-05-03 22:00 | XMS_ITS | Encounter Summary ---
Author Organization [facility] [address] [place] [address] Care Team Providers Care Editor City Name Role Phone Unavailable Primary Care Provider Unavailabl e Reason for Referral * Eval and Treat (Routine) - Closed Specialty Diagnoses / Procedures Referred By Tequila t Referred To Contact Psychiatry Diagnoses Anxiety Prudence Gates MD [address] [place] [address] [facility] [place] [address] Referral ID Status Reason Start Date Expiration Date V isits Requested Visits Authorized [id number] Closed Ordering Dept To Review (STL) 05/21/2012 05/22/2013 1 1 RAIT CONSULTANT Reason for Visit * Reason Comments Thyroid Problem F/U Encounter Details Date Type Department Care Team (Late st Contact Info) Description 05/21/2012 3:15 PM PORTRAIT CONSULTANT Office Visit [facility] Endocrinology [address] [place] [address] Prudence Gates MD [address] [place] [address] Unspecified hypothyroidism; Metabolic syndrome; History of gestational [...] Comments Blood Pressure 112/78 05/21/2012 3:04 PM PORTRAIT CONSULTANT Pulse 80 05/21/2012 3:04 PM PORTRAIT CONSULTANT Temperature - - Respiratory Rate - - Oxygen Saturation - - Inhaled Oxygen Concentration - - Weight 85.7 kg (189 lb) 05/21/2012 3:04 PM PORTRAIT CONSULTANT Height 162.6 cm (5' 4 ) 05/21/2012 3:04 PM PORTRAIT CONSULTANT Body Mass Index 32.44 05/21/2012 3:04 PM PORTRAIT CONSULTANT documented in this encounter Progress Notes [...] a great day, Sincerely yours Prudence Gates RAIT CONSULTANT * Nahed France - 05/21/2012 3:04 PM CST Pt here for Thyroid F/U. Recent labs. See lab tab for results. B/G- 179 Pt had lunch. RAIT CONSULTANT documented in this encounter Plan of Treatment Upcoming Encounters Date Type Department Care Team (Late st Contact Info) Description 09/14/2024 3:00 PM CDT Office Visit [facility] [address] [place] [address] Marlys Mayer MD [address] [place] [address] Scheduled Referrals Name Type Priority Associated Diagnoses [...]
--- OUTSIDE RECORDS SUMMARY | 2024-05-03 22:00 | XMS_ITS | Encounter Summary ---
Author Organization [facility] Address [address] [place] [address] Care Team Providers Care Ios Architect Name Role Phone Unavailable Primary Care Provider Unavailabl e Encounter Details Date Type Department Care Team ([facility] Contact Info) Description 12/17/2011 Orders Only [facility] Endocrinology [address] [place] [address] Prudence Gates MD [address] [place], [place] [phone] PCOS (polycystic ovarian syndrome); Metabolic syndrome Social [...] Upcoming Encounters Date Type Department Care Team ([facility] Contact Info) Description 09/14/2024 3:00 PM CDT Office Visit [facility] Heart and Vascular - [place] [address] [place] [address] Marlys Mayer MD [address] [place] [address] documented as of this encounter [...] (12/18/2011 8:17 AM CDT) TSH 10.92(H) mIU/L [facility] [place] [facility] Comment: ?Reference Range ?> or = 20 Years ??0.40-4.50 ? Ranges ?First trimester ?0.26-2.66 ?Second trimester ?? 0.55-2.73 ?Third trimester ?0.43-2.91 Test Performed at: [facility] [address] ??[address] DELMA MAURER DO,MPH Blood specimen (specimen) 12/18/2011 8:17 AM CDT Prudence Gates MD CHEMISTRY ORDERAB LES INTERFACE SYSTEM Refer to clinic/hospital department [facility] [place] [facility] [address] [place] [address] * (ABNORMAL) HEPATIC FUNCTION PANEL (12/18/2011 8:17 AM CDT) Pathologist [facility] TOTAL PROTEIN 6.4 6.2 - 8.3 g/dL [facility] [place] [facility] ALBUMIN 4.5 3.6 - 5.1 g/dL [facility] GLOBULIN 1.9(L) 2.2 - 3.9 g/dL (calc) [facility] ALBUMIN/GLOBULIN RATIO 2.4(H) 1.0 - 2.1 (calc) [facility] BILIRUBIN TOTAL 0.4 0.2 - 1.2 mg/dL [facility] BILIRUBIN DIRECT 0.0 < OR = 0.2 mg/dL [facility] BILIRUBIN INDIRECT 0.4 0.2 - 1.2 mg/dL (calc) [facility] ALKALINE PHOSPHATASE 53 33 - 115 U/L [facility] AST 16 10 - 30 U/L [facility] ALT 13 6 - 40 U/L [facility] Comment: Test Performed at: [facility] [address] [place], [place] ??[address] DELMA MAURER DO,MPH Blood specimen (specimen) 12/18/2011 8:17 AM CDT Prudence Gates MD CHEMISTRY ORDERAB LES Performing Organization Address [facility] Phone Number INTERFACE SYSTEM Refer to clinic/hospital department [facility] [address] [place] [address] * CREATININE (12/18/2011 8:17 AM CDT) CREATININE 0.64 0.50 - 1.10 mg/dL [facility] [place] [facility] GFR 115 > OR = 60 mL/min/1.7 3m2 [facility] GFR, 133 > OR = 60 mL/min/1.7 3m2 [facility] Comment: Test Performed at: [facility] ??[address] DELMA MAURER DO,MPH Blood specimen (specimen) 12/18/2011 8:17 AM CDT Prudence Gates MD CHEMISTRY ORDERAB LES Performing Organization Address [facility] de Phone Number INTERFACE SYSTEM Refer to clinic/hospital department [facility] [address] [place] [address] * (ABNORMAL) LIPID PANEL (12/18/2011 8:17 AM CDT) CHOLESTEROL 231(H) 125 - 200 mg/dL [facility] [place] [facility] Comment: Test Performed at: [facility] [address] [place] ??[address] DELMA MAURER DO,MPH HDL 36(L) > OR = 46 mg/dL [facility] [place] [facility] Comment: The above test was performed; however, the specimen was lipemic. TRIGLYCERIDE 458(H) <150 mg/dL [facility] LDL CALCULATED <130 mg/dL (calc) [facility] Comment: LDL cholesterol not calculated. Triglyceride levels greater than 400 mg/dL invalidate calculated LDL results. Desirable range <100 mg/dL for patients with CHD or diabetes and <70 mg/dL for diabetic patients with known heart disease. CHOL/HDL RATIO 6.4(H) < OR = 5.0 (calc) [facility] RESULT 195 mg/dL (calc) [facility] Comment: Component Name: ??NON-HDL CHOLESTEROL Target for non-HDL cholesterol is 30 mg/dL higher than LDL cholesterol target. Blood specimen (specimen) 12/18/2011 8:17 AM CDT Prudence Gates MD CHEMISTRY ORDERAB LES INTERFACE SYSTEM Refer to clinic/hospital department [facility] [address] [place] [address] documented in this encounter Visit Diagnoses Diagnosis PCOS (polycystic ovarian syndrome) Polycystic ovaries Metabolic syndrome Dysmetabolic Syndrome X documented in this encounter
--- OUTSIDE RECORDS SUMMARY | 2024-05-03 22:01 | XMS_ITS | Clinical Summary ---
Author Organization [facility] Address [address] [place] [address] Care Team Providers Care Tow Picker Name Role Phone Mauri Jaime MD Primary Care Provider [phone]- [phone] Guerrero Middleton PA Unavailable [phone] Allergies Active Allergy Reactions Criticality Noted Date [...] tablet TAKE 1 TABLET BY MOUTH EVERY MOLD OPERATOR 022 Active fenofibrate (TRIGLIDE) 160 mg tablet [...] on file Legal Sex Female 5:05 AM CURRICULUM COACH Gender Identity Not on file Sexual Orientation Not on file Obstetrics History Last Filed Vital Signs Vital Sign Reading Time Taken Comments Blood Pressure 101/62 06/05/2023 11:38 AM CURRICULUM COACH Pulse 76 06/05/2023 11:38 AM CURRICULUM COACH Temperature 36.4 ??C (97.5 ??F) 06/05/2023 10:[address] Respiratory Rate 22 06/05/2023 11:38 AM CURRICULUM COACH Oxygen Saturation 94% 06/05/2023 11:38 AM CURRICULUM COACH Inhaled Oxygen Concentration - - Weight 81.6 kg (180 lb) 06/05/2023 8:58 AM CURRICULUM COACH Height 165.1 cm (5' 5 ) 06/05/2023 8:58 AM CURRICULUM COACH Body Mass Index 29.95 06/05/2023 8:58 AM CURRICULUM COACH Plan of Treatment Health Maintenance Due Date [...] 03/04/2021, Additional history exists Insurance [facility] Care Teams Tow Picker Relationship Specialty Start Date End Date Mauri Jaime MD [address] [address] PCP - General Internal Medicine 05/28/23 Guerrero Middleton PA [address] [address] 05/28/23
--- OUTSIDE RECORDS SUMMARY | 2024-05-03 22:01 | XMS_ITS | Encounter Summary ---
Author Organization [facility] Healthcare Address [address] [place] [address] Care Team Providers Care Pearler Name Role Phone Mauri Jaime MD Primary Care Provider [phone]- [phone] Guerrero Middleton Unavailable [phone] Encounter Details Date Type Department Care Team (Late st Contact Info) Description 09/13/2023 Telephone [facility] Medical Group Cardiology [address] [place] [address] Beverly Castillo NP [address] [place] [address] Social History Tobacco Use Types [...] on file Legal Sex Female 5:05 AM ARABIC TEACHER Gender Identity Not on file Sexual Orientation [...] by an academic facility rather than community bezel cutter as well as lipid/ palliative care specialist [facility]. If PCP would like to place a [...] has an unusual lipid disorder her previous bezel cutter was trying to get her in at [facility] for. Call placed to for last admit [...] PCP advised her to follow up with bezel cutter. Requesting call back to discuss. Contact: documented in this encounter Plan of Treatment Not on file documented as of this encounter Visit Diagnoses Not on filedocumented in this encounter Care Teams Pearler Relationship Specialty Start Date End Date Mauri Jaime MD [address] [place] [address] PCP - General Internal Medicine 05/28/23 Guerrero Middleton PA [address] [place] [address] 05/28/23 documented as of this encounter
--- OUTSIDE RECORDS SUMMARY | 2024-05-03 22:01 | XMS_ITS | Encounter Summary ---
Author Organization [facility] Healthcare Address [address] [place] [address] Care Team Providers Care Human Resources Hr Representative Name Role Phone Mauri Jaime MD Primary Care Provider [phone]- [phone] Guerrero Middleton Unavailable [phone] Reason for Visit * Reason Onset Date Comments GI Preprocedure 05/28/2023 Encounter Details Date Type Department Care Team (Late st Contact Info) Description 05/28/2023 Telephone [facility] Specialty Services [address] [place] [address] Bailey Land RN GI Preprocedure Social History Tobacco Use Types Packs/Day Years Used Date Smoking Tobacco: Never Assessed Personal Safety Answer Date Recorded Getting School Help Needed Not on file 05/29 Comments Unknown Sex and Gender Information Value Date Recorded Sex Assigned at Not on file Legal Sex Female 5:05 AM CUSTOMER SERVICES COORDINATOR Gender Identity Not on file Sexual Orientation Not on file documented as of this encounter Last Filed Vital Signs Vital Sign Reading Time Taken Comments Blood Pressure - - Pulse - - Temperature - - Respiratory Rate - - Oxygen Saturation - - Inhaled Oxygen Concentration - - Weight 80.7 kg (178 lb) 05/28/2023 11:35 AM CUSTOMER SERVICES COORDINATOR Height 165.1 cm (5' 5 ) 05/28/2023 11:35 AM CUSTOMER SERVICES COORDINATOR Body Mass Index 29.62 05/28/2023 11:35 AM CUSTOMER SERVICES COORDINATOR documented in this encounter Miscellaneous Notes * Telephone Encounter - Bailey Land RN - 05/28/2023 11:38 AM CUSTOMER SERVICES COORDINATOR Images from the original note were not [...] may get rescheduled PRIOR PROCEDURE ISSUES: None EXIT BOOTH AGENT/: NA hysterectomy IMPLANTS.: Port for plasma pheresis [...] and to contact their ordering MD or Chain Carrier about bridging medication for procedure. No [] Yes - Letter Sent to Ordering Physician/Chain Carrier Date sent: Hold instructions: GLP Weight Loss Medications No Educated Patient on the need to hold Medication, and to contact their ordering MD or Chain Carrier about bridging medication for procedure. Y/N: No/NA None [] Yes - Letter Sent to Ordering Physician/Chain Carrier Hold older Instructions: BLOOD THINNERS/ANTICOAG/ANTIPLATELET (BESIDES ASA) Medication: NONE Physician contacted for hold order/date sent: Hold order Method sent: Date hold received: Hold instructions: CONTINUE ASPIRIN INFORMATION REQUESTED []Imaging:requested from [facility] []Medical Progress Note/H&P []Medication list []Other: PATIENT OPTIMIZATION []Physician reviewing escalation: []CPAP: Date scheduled: Outcome : [] Location limitations: Scheduling Scheduling location limitations: with dr Galvez 1-2 weeks Statuary Painter needed [x] NA Language: POA [x] NA Name: Required extended education:no SPECIAL PROCEDURE INSTRUCTIONS Scheduling Notes Procedure information Date of procedure: 06-05-2023 Time of procedure: 1000 Arrival time: 0900 Location: [facility] Proceduralist: Lenny Instructions Method of instructions: Verbal and E-mail [email or web address] [x]Confirmation of ride/counter attendant [x]Post anesthesia restrictions given [x]NPO Instructions: nothing [...] From: Scott Ruiz Sent: 05/22/2023 2:00 PM CUSTOMER SERVICES COORDINATOR To: Mikel Galvez MD Subject: FW: Biliary Records Review Please advise on schedulin. Office visit versus direct procedure (specify procedure) 2. Urgency/timeframe to schedule 3. Dx 4. Covid Test? ----- Message ----- From: Jason Escobedo Sent: 05/22/2023 1:55 PM CUSTOMER SERVICES COORDINATOR To: Deepak Lee Gi Biliary 1 Pool Subject: Biliary Records Review Records scanned under media tab, 'outside secondary info'. Please advise on scheduling. OMER SERVICES COORDINATOR OMER SERVICES COORDINATOR documented in this encounter Plan of Treatment Not on file documented as of this encounter Visit Diagnoses Not on filedocumented in this encounter Care Teams Human Resources Hr Representative Relationship Specialty Start Date End Date Mauri Jaime MD [address] [place] [address] PCP - General Internal Medicine 05/28/23 Guerrero Middleton PA [address] [place] [address] 05/28/23 documented as of this encounter
--- OUTSIDE RECORDS SUMMARY | 2024-05-03 22:01 | XMS_ITS | Encounter Summary ---
Author Organization [facility] Care Team Providers Care Spring Tier Name Role Phone Unavailable Primary Care Provider Unavailabl e Encounter Details Date Type Department Care Team (Late st Contact Info) Description 12/25/2006 - 12/25/2006 11:59 PM CDT Hospital Encounter [facility] Jose Austin MD [phone] [place] [address] Social History Tobacco Use Types Packs/Day Years Used Date Smoking Tobacco: Never Assessed Comments Unknown Sex and Gender Information Value Date Recorded Sex Assigned at Not on file Legal Sex Female 5:05 AM PHOTO OFFSET PRINTER Gender Identity Not on file Sexual Orientation Not on file documented as of this encounter Plan of Treatment Not on file documented as of this encounter Visit Diagnoses Not on filedocumented in this encounter
--- OUTSIDE RECORDS SUMMARY | 2024-05-03 22:01 | XMS_ITS | Encounter Summary ---
Author Organization [facility] Address [address] [place] [address] Phone Care Team Providers Care Charge Attendant Name Role Phone Mauri Jaime MD Primary Care Provider [phone] Guerrero Middleton Unavailable [phone] Encounter Details Date Type Department Care Team (Late st Contact Info) Description 06/11/2023 Telephone [facility] Gastroenterology [address] [place] [address] [place] [address] Matt Rees Social History Tobacco [...] on file Legal Sex Female 5:05 AM SOCIAL SERVICES DIRECTOR Gender Identity Not on file Sexual Orientation Not on file documented as of this encounter Miscellaneous Notes * Telephone Encounter - Matt Rees - 06/11/2023 11:39 AM CST Lvm x2 [place] SERVICES DIRECTOR * Telephone Encounter - CabreraMatt - 06/11/2023 11:39 AM CST ----- Message from Manisha Resendiz RN sent at 06/05/2023 2:09 PM SOCIAL SERVICES DIRECTOR ----- Regarding: ROV + MRCP Hi Matt, Can you please coordinate the following from Dr. Galvez's recommendations: Return to my office in 3 months. MRCP prior to clinic visit. Thank you, CLAU Dyer BSN Clinical Nurse Coordinator, [facility] [place], [place] SERVICES DIRECTOR documented in this encounter Plan of Treatment Not on file documented as of this encounter Visit Diagnoses Not on filedocumented in this encounter Care Teams Charge Attendant Relationship Specialty Start Date End Date Mauri Jaime MD [address] [place] [address] PCP - General Internal Medicine 05/28/23 Guerrero Middleton PA [address] [place] [address] 05/28/23 documented as of this encounter
--- OUTSIDE RECORDS SUMMARY | 2024-05-03 22:01 | XMS_ITS | Encounter Summary ---
Author Organization [facility] Address [address] [place] [address] Care Team Providers Care Center Administrator Name Role Phone Mauri Jaime MD Primary Care Provider [phone] Guerrero Middleton Unavailable [phone] Reason for Visit * Auth/Cert (Routine) Specialty Diagnoses / Procedures Referred By Contac t Referred To Contact Diagnoses Chronic pancreatitis, unspecified pancreatitis type (HCC) chronic pancreatitis Procedures IA EDG US EXAM SURGICAL ALTER STOM DUODENUM/JEJUNUM EUS TE/OA interventional Referral ID Status Reason Start Date Expiration Date Visits Re quested Visits Authorized [id number] 1 1 Encounter Details Date Type Department Care Team (Late st Contact Info) Description 06/05/2023 10:06 AM INTAKE CLERK Anesthesia Event [facility] Digestive Disease [place] [address] [place] [address] Sri Mayers MD [address] [place] [address] Herrera Ponce CRNA [address] [place] [address] Anesthesia Record Procedure Summary Procedure Name Responsible [...] on file Legal Sex Female 5:05 AM INTAKE CLERK Gender Identity Not on file Sexual Orientation Not on file documented as of this encounter OR Notes * Anesthesia Postprocedure Evaluation - Fadia Leonard MD - 06/05/2023 10:44 AM CST Patient: Casandra Jones Procedure Summary Date: 06/05/23 Room / Location: [facility] ENDOSCOPY ROOM 2 / [facility] Anesthesia Start: 1006 Anesthesia Stop: [...] - patient participated Level of consciousness: arouses custodial operations manager Pain management: adequate Airway patency: adequate Evidence of recall: no Cardiovascular status: acceptable Respiratory status: acceptable Hydration status: acceptable Pt is: normothermic Nausea/Vomiting status: none No notable events documented. KE CLERK * Anesthesia Preprocedure Evaluation - Sri Mayers [...] Medication protocol when under care of a RESORT DESK CLERK Planned anesthesia: MAC Informed Consent: Discussed plan with RESORT DESK CLERK. Anesthesia plan and risks discussed with patient. Consent and Attending signature: I and/or my designee have discussed the anesthesia plan, benefits, possible alternatives, parental presence at time of induction (if indicated), and clinically relevant risks that may include dental injury, unintentional awareness, and/or other complications. The patient and/or parent/legal guardian understand, and agree to proceed. All questions answered. KE CLERK documented in this encounter Plan of [...] Ventricular ArrhythmiasIndications:Ventricular Arrhythmias Given 06/05/2023 10:20 AM INTAKE CLERK 40 mg Given 06/05/2023 10:14 AM INTAKE CLERK 60 mg propofoL (DIPRIVAN) 10 mg/mL IV intravenous, As needed, Starting on Sat06/05/23 at 1018, Anesthesia Intra-op Bolus 06/05/2023 10:28 AM INTAKE CLERK 15 mg New Bag 06/05/2023 10:18 AM INTAKE CLERK 50 mg propofoL (DIPRIVAN) 10 mg/mL IV intravenous, Continuous PRN, Starting on Sat06/05/23 at 1018, Anesthesia Intra-op Rate/Dose Change 06/05/2023 10:30 AM INTAKE CLERK 150 mcg/kg/min 73.44 mL/hr Rate/Dose Change 06/05/2023 10:28 AM INTAKE CLERK 140 mcg/kg/min 68 .544 mL/hr Rate/Dose Change 06/05/2023 10:22 AM INTAKE CLERK 130 mcg/kg/min 63 .648 mL/hr sodium chloride 0.9% infusion intravenous, Continuous PRN, Starting on Sat06/05/23 at 1016, Anesthesia Intra-op New Bag 06/05/2023 10:16 AM INTAKE CLERK documented in this encounter Care Teams Center Administrator Relationship Specialty Start Date End Date Mauri Jaime MD [address] [facility] [address] [place] [address] PCP - General Internal Medicine 05/28/23 Guerrero Middleton PA [address] [facility] [address] [place] [address] 05/28/23 documented as of this encounter
--- OUTSIDE RECORDS SUMMARY | 2024-05-03 22:01 | XMS_ITS | Encounter Summary ---
Author Organization [facility] Healthcare Address [address] [place] [address] Care Team Providers Care Dental Instrument Maker Name Role Phone Mauri Jaime MD Primary Care Provider [phone]- [phone] Guerrero Middleton Unavailable [phone] Reason for Visit * Auth/Cert (Routine) Specialty Diagnoses / Procedures Referred By Contac t Referred To Contact Diagnoses Chronic pancreatitis, unspecified pancreatitis type (HCC) chronic pancreatitis Procedures TN EDG US EXAM SURGICAL ALTER STOM DUODENUM/JEJUNUM EUS TE/OA interventional Referral ID Status Reason Start Date Expiration Date Visits Re quested Visits Authorized [id number] 1 1 Encounter Details Date Type Department Care Team (Latest Contact Info) Description 06/05/2023 10:00 AM INHALATION THERAPY TEACHER - 06/05/2023 11:00 AM INHALATION THERAPY TEACHER Surgery [facility] [address] [facility] [address] [place] [address] Mikel Galvez MD [address] [place] [address] ESOPHAGOGASTRODUODENOSCOPY ENDOSCOPIC ULTRASOUND Surgery Details Date/Time Status Location OR Service Patient Class Case Class Case Type Trauma Case? 06/05/2023 10:00 AM Posted [facility] ENDOSCOPY ERCP 02 Gastroenterology Outpatient Elective Panel [...] on file Legal Sex Female 5:05 AM INHALATION THERAPY TEACHER Gender Identity Not on file Sexual Orientation Not on file documented as of this encounter Last Filed Vital Signs Vital Sign Reading Time Taken Comments Blood Pressure 106/65 06/05/2023 10:58 AM INHALATION THERAPY TEACHER Pulse 73 06/05/2023 10:58 AM INHALATION THERAPY TEACHER Temperature 36.4 ??C (97.5 ??F) 06/05/2023 10:[address] Respiratory Rate 15 06/05/2023 10:58 AM INHALATION THERAPY TEACHER Oxygen Saturation 96% 06/05/2023 10:58 AM INHALATION THERAPY TEACHER Inhaled Oxygen Concentration - - Weight 81.6 kg (180 lb) 06/05/2023 8:58 AM INHALATION THERAPY TEACHER Height 165.1 cm (5' 5 ) 06/05/2023 8:58 AM INHALATION THERAPY TEACHER Body Mass Index 29.95 06/05/2023 8:58 AM INHALATION THERAPY TEACHER documented in this encounter Medications at Time [...] tablet TAKE 1 TABLET BY MOUTH EVERY DIESEL LOCOMOTIVE FIRER/FIREMAN 06/01/19 22 fenofibrate (TRIGLIDE) 160 mg tablet [...] tablet TAKE 1 TABLET BY MOUTH EVERY DIESEL LOCOMOTIVE FIRER/FIREMAN 06/01/21 Yes Andrew Escobar MD fenofibrate (TRIGLIDE) [...] planned procedure for the reasons stated above. LATION THERAPY TEACHER documented in this encounter Procedure Notes * Mikel Galvez MD - 06/05/2023 9:51 AM CSTAssociated Order(s): EUS [facility] Patient Name: Casandra Jones Procedure Date: 06/05/2023 9:51 AM Date of : 1975 Admit Type: Outpatient Age: 47 Gender: Female Attending MD: Mikel Galvez M.D. Room: [facility] ENDOSCOPY ROOM 2 Note Status: Finalized [...] obtained.The Olympus curved linear array therapeutic endosonoscope [id number] was introduced through the mouth, and advanced [...] following this procedure please call my office [phone]). After hours and evenings please call [phone] and speak to the GI fellow developer relations manager. Please tell the fellow that Dr. Galvez [...] On: 06/05/2023 9:51 AM Recognized by the [employer] for promoting quality in endoscopy LATION THERAPY TEACHER documented in this encounter Plan of Treatment Pending Results Name Type Priority Associated Diagnoses Date/Time ESOPHAGOGASTRODUODENOSCOPY ENDOSCOPIC ULTRASOUND Endo Imaging Procedure IP Routine Chronic pancreatitis, unspecified pancreatitis type (HCC) 06/05/2023 10:37 AM INHALATION THERAPY TEACHER documented as of this encounter Procedures Procedure Name Priority Date/Time Associated Diagnosis Comments US ENDOSCOPIC IP Routine 06/05/2023 10:37 AM INHALATION THERAPY TEACHER Chronic pancreatitis, unspecified pancreatitis type (HCC) EUS 06/05/2023 9:51 AM INHALATION THERAPY TEACHER POCT GLUCOSE DEVICE Routine 06/05/2023 9 :14 AM INHALATION THERAPY TEACHER documented in this encounter Results * EUS (06/05/2023 9:51 AM INHALATION THERAPY TEACHER) Anatomical Region Laterality Modality Other Narrative Procedure Note Mikel Galvez MD - 06/05/2023 9:51 AM CST [facility] Patient Name: Casandra Jones Procedure Date: 06/05/2023 9:51 AM Date of : 1975 Admit Type: Outpatient Age: 47 Gender: Female Attending MD: Mikel Galvez M.D. Room: [facility] ENDOSCOPY ROOM 2 Note Status: Finalized [...] consent was obtained.The Olympuscurved linear array therapeutic [id number] was introduced through the mouth, and advanced [...] following this procedure please call my office [phone]). After hours and eveningsplease call [phone] and speak to the GI fellow ollie. [...] On: 06/05/2023 9:51 AM Recognized by the [employer] for promoting quality in endoscopy us Mikel Galvez MD ENDOSCOPY PROCEDURES Final Result * POCT glucose (06/05/2023 9:14 AM INHALATION THERAPY TEACHER) Glucose, POC 124 70 - 199 mg/dL [facility] Blood 06/05/2023 9:14 AM INHALATION THERAPY TEACHER 06/05/2023 9:14 AM INHALATION THERAPY TEACHER us Mikel Galvez MD LAB POCT ORDERABLES - ALBARO CE Final Result [facility] Department [place] [address] documented in this encounter Visit Diagnoses Diagnosis [...] tablet TAKE 1 TABLET BY MOUTH EVERY DIESEL LOCOMOTIVE FIRER/FIREMAN 06/01/19 22 doxepin 6 mg tablet Take [...] 06/05/2023 documented in this encounter Care Teams Dental Instrument Maker Relationship Specialty Start Date End Date Mauri Jaime MD [address] [place] [address] PCP - General Internal Medicine 05/28/23 Guerrero Middleton PA [address] [place] [address] 05/28/23 documented as of this encounter
--- OUTSIDE RECORDS SUMMARY | 2024-05-03 22:01 | XMS_ITS | Encounter Summary ---
Author Organization [facility] Address [address] [place] [address] Phone Care Team Providers Care Machine Maintenance Name Role Phone Mauri Jaime MD Primary Care Provider [phone] Guerrero Middleton Unavailable [phone] Encounter Details Date Type Department Care Team (Late st Contact Info) Description 07/23/2023 Telephone [facility] Gastroenterology [address] [facility] 12th [place] [address] [place] [address] Matt Rees Social History Tobacco [...] on file Legal Sex Female 5:05 AM PREVENTIVE MEDICINE PHYSICIAN Gender Identity Not on file Sexual Orientation Not on file documented as of this encounter Miscellaneous Notes * Telephone Encounter - Matt Rees - 07/23/2023 9:18 AM CDT Lvm x3 to coordinate MRI with ov with Dr. Galvez * Telephone Encounter - Matt Rees - 07/23/2023 9:17 AM CDT ----- Message from Manisha Resendiz RN sent at 06/05/2023 2:09 PM PREVENTIVE MEDICINE PHYSICIAN ----- Regarding: ROV + MRCP Hi Matt, Can you please coordinate the following from Dr. Galvez's recommendations: Return to my office in 3 months. MRCP prior to clinic visit. Thank you, CLAU Dyer BSN Clinical Nurse Coordinator, [facility] in [place], documented in this encounter Plan of Treatment Not on file documented as of this encounter Visit Diagnoses Not on filedocumented in this encounter Care Teams Machine Maintenance Relationship Specialty Start Date End Date Mauri Jaime MD [address] [place] [address] PCP - General Internal Medicine 05/28/23 Guerrero Middleton PA [address] [place] [address] 05/28/23 documented as of this encounter
--- OUTSIDE RECORDS SUMMARY | 2024-05-03 22:01 | XMS_ITS | Encounter Summary ---
Author Organization [employer] [facility] Facility Care Team Providers Care Protective Service Specialist Name Role Phone Unavailable Primary Care Provider Unavailabl e Encounter Details Date Type Department Care Team (Late st Contact Info) Description 02/19/2007 - 02/19/2007 11:59 PM CDT Hospital Encounter [facility] CLINCONV Chrissie Zurita MD [address] [address] Social History Tobacco Use Types Packs/Day Years Used Date Smoking Tobacco: Never Assessed Comments Unknown Sex and Gender Information Value Date Recorded Sex Assigned at Not on file Legal Sex Female 5:05 AM ZIPPER SLIDE ATTACHER Gender Identity Not on file Sexual Orientation Not on file documented as of this encounter Plan of Treatment Not on file documented as of this encounter Visit Diagnoses Not on filedocumented in this encounter
--- OUTSIDE RECORDS SUMMARY | 2024-05-03 22:01 | XMS_ITS | Encounter Summary ---
Author Organization [facility] Address [address] [place] [address] Phone Care Team Providers Care Training Project Manager Name Role Phone Mauri Jaime MD Primary Care Provider [phone] Guerrero Middleton Unavailable [phone] Encounter Details Date Type Department Care Team (Late st Contact Info) Description 08/15/2023 Telephone [facility] Gastroenterology [address] [facility] [address]th [place] [address] [place] [address] Matt Rees Social History Tobacco [...] on file Legal Sex Female 5:05 AM BACK GRAY CLOTH WASHER Gender Identity Not on file Sexual Orientation Not on file documented as of this encounter Miscellaneous Notes * Telephone Encounter - Matt Rees - 08/15/2023 1:34 PM CDT Lvm x5 to set MRI before ov with Dr. Galvez on 09/10/23 * Telephone Encounter - Matt Rees - 08/15/2023 1:34 PM CDT ----- Message from Manisha Resendiz RN sent at 06/05/2023 2:09 PM BACK GRAY CLOTH WASHER ----- Regarding: ROV + MRCP Hi Matt, Can you please coordinate the following from Dr. Galvez's recommendations: Return to my office in 3 months. MRCP prior to clinic visit. Thank you, CLAU Dyer BSN Clinical Nurse Coordinator, [facility] in [place], documented in this encounter Plan of Treatment Not on file documented as of this encounter Visit Diagnoses Not on filedocumented in this encounter Care Teams Training Project Manager Relationship Specialty Start Date End Date Mauri Jaime MD [address] [place] [address] PCP - General Internal Medicine 05/28/23 Guerrero Middleton PA [address] [place] [address] 05/28/23 documented as of this encounter
--- OUTSIDE RECORDS SUMMARY | 2024-05-03 22:01 | XMS_ITS | Encounter Summary ---
Author Organization [facility] Facility Care Team Providers Care Psychiatry Resident Name Role Phone Unavailable Primary Care Provider Unavailabl e Encounter Details Date Type Department Care Team (Late st Contact Info) Description 12/26/2006 - 12/26/2006 11:59 PM CDT Hospital Encounter [facility] CLINCONV Jose Austin MD [id number] [place] [address] Social History Tobacco Use Types Packs/Day Years Used Date Smoking Tobacco: Never Assessed Comments Unknown Sex and Gender Information Value Date Recorded Sex Assigned at Not on file Legal Sex Female 5:05 AM DIESEL STATIONARY ENGINEER Gender Identity Not on file Sexual Orientation Not on file documented as of this encounter Plan of Treatment Not on file documented as of this encounter Visit Diagnoses Not on filedocumented in this encounter
--- OUTSIDE RECORDS SUMMARY | 2024-05-03 22:01 | XMS_ITS | Encounter Summary ---
Author Organization [facility] Healthcare Address [address] [place] [address] Care Team Providers Care Drilling Fluids Specialist Name Role Phone Mauri Jaime MD Primary Care Provider [phone] Guerrero Middleton PA Unavailable [phone] Encounter Details Date Type Department Care Team (Late st Contact Info) Description 07/24/2023 Orders Only [facility] Medical Group Cardiology [address] [place] [address] Ceasar Ng MD [address] [place] [address] Social History Tobacco Use Types [...] on file Legal Sex Female 5:05 AM BUSINESS OBJECTS ARCHITECT Gender Identity Not on file Sexual Orientation [...] CDT) Anatomical Region Laterality Modality Other us [facility] Evie Sheffield MD CV CARDIAC SERVICES PRO CEDURES Final Result * Cardiology Document Scan (07/22/2023 10:21 AM CDT) Anatomical Region Laterality Modality Other us Ceasar Ng MD CV CARDIAC SERVICES PROC EDURES Final Result documented in this encounter Visit Diagnoses Not on filedocumented in this encounter Care Teams Drilling Fluids Specialist Relationship Specialty Start Date End Date Mauri Jaime MD [address] [facility] [address] [place] [address] PCP - General Internal Medicine 05/28/23 Guerrero Middleton PA [address] [place] [address] 05/28/23 documented as of this encounter
--- OUTSIDE RECORDS SUMMARY | 2024-05-03 22:01 | XMS_ITS | Encounter Summary ---
Author Organization [facility] Healthcare Address [address] [place] [address] Care Team Providers Care Procurement Engineer Name Role Phone Guerrero Middleton Primary Care Provider Reason for Visit * Reason Comments Abdominal Pain Encounter Details Date Type Department Care Team ([facility] Contact Info) Description 12/02/2017 7:52 PM CDT - 12/02/2017 9:54 PM CDT Emergency [facility] Emergency Department [address] [place] [id number] Discharge Disposition: Left without being seen Social History Tobacco Use Types Packs/Day Years Used Date Smoking Tobacco: Never Assessed Comments Unknown Sex and Gender Information Value Date Recorded Sex Assigned at Not on file Legal Sex Female 5:05 AM CAREER SERVICES DIRECTOR Gender Identity Not on file [...] Neutrophil abs 9.7(H) 1.7 - 6.5 K/cumm [facility] Imm gran abs 0.2(H) 0.0 - 0.1 K/cumm [facility] Lymphocyte abs 4.0(H) 0.8 - 3.3 K/cumm [facility] Monocyte abs 0.7 0.2 - 0.8 K/cumm [facility] Eosinophil abs 0.1 0.0 - 0.5 K/cumm [facility] Basophil abs 0.1 0.0 - 0.1 K/cumm [facility] Neutrophil pct 65.7 % [facility] Comment: Interpretive Data Percent cell count reference [...] revised on 2017. Lymphocyte pct 26.7 % [facility] Comment: Interpretive Data Percent cell count reference ranges are not reported, since discordance with absolute values may lead to misinterpretation of CBC data. Current Interpretive Data was last revised on 2017. Monocyte pct 4.9 % [facility] Comment: Interpretive Data Percent cell count reference ranges are not reported, since discordance with absolute values may lead to misinterpretation of CBC data. Current Interpretive Data was last revised on 2017. Eosinophil pct 0.9 % [facility] Comment: Interpretive Data Percent cell count reference ranges are not reported, since discordance with absolute values may lead to misinterpretation of CBC data. Current Interpretive Data was last revised on 2017. Basophil pct 0.5 % [facility] Comment: Interpretive Data Percent cell count reference ranges are not reported, since discordance with absolute values may lead to misinterpretation of CBC data. Current Interpretive Data was last revised on 2017. Blood specimen (specimen) 12/02/2017 9:17 PM CDT 12/02/2017 9:31 PM CDT Narrative [facility] - 12/02/2017 9:39 PM CDT Serafin Stark MD LAB BLOOD ORDERABLES Final R esult [facility] Department [place] [address] * Hepatic function panel (12/02/2017 9:17 PM CDT) Bilirubin, total 0.3 0.1 - 1.2 mg/dL [facility] Bilirubin, direct 0.2 0.1 - 0.3 mg/dL [facility] Protein, pl 7.9 6.5 - 8.5 g/dL [facility] Albumin 5.0 3.5 - 5.0 g/dL [facility] Alk phos 71 40 - 130 Units/L [facility] ALT 15 7 - 45 Units/L [facility] AST 19 10 - 45 Units/L [facility] Blood specimen (specimen) (Blood, Venous) 12/02/2017 9:17 PM CDT 12/02/2017 9:31 PM CDT Narrative [facility] - 12/02/2017 9:58 PM CDT THE COLLECTION LOCATION IS Serafin Stark MD LAB BLOOD ORDERABLES Final R esult [facility] Department [place] [address] * (ABNORMAL) CBC with auto differential (12/02/2017 9:17 PM CDT) WBC 14.8(H) 3.8 - 9.9 K/cumm [facility] Hgb 14.0 11.9 - 15.5 g/dL [facility] Hct 40.6 35.6 - 45.5 % [facility] Plt 355 150 - 400 K/cumm [facility] MPV 9.3 9.1 - 12.3 fL [facility] RBC 4.55 3.90 - 5.20 M/cumm [facility] MCV 89.2 81.3 - 96.4 fL [facility] MCH 30.8 27.1 - 33.3 pg [facility] MCHC 34.5 32.3 - 35.7 g/dL [facility] RDW CV 14.8 11.1 - 14.9 % [facility] RDW SD 48.1 35.7 - 48.1 fL [facility] NRBC abs 0.00 0.00 - 0.01 K/cumm [facility] Blood specimen (specimen) (Blood, Venous) 12/02/2017 9:17 PM CDT 12/02/2017 9:31 PM CDT Narrative [facility] - 12/02/2017 9:39 PM CDT THE COLLECTION LOCATION IS us Serafin Stark MD LAB BLOOD ORDERABLES Final R esult Performing Organization Address City/[facility]/ZIP Co de Phone Number [facility] Department [place] [address] * (ABNORMAL) Basic metabolic panel (12/02/2017 9:17 PM CDT) Sodium 134(L) 135 - 145 mmol/L [facility] Potassium, pl 4.3 3.3 - 4.9 mmol/L [facility] Chloride 97 97 - 110 mmol/L [facility] CO2 19(L) 22 - 32 mmol/L [facility] Anion gap 18(H) 2 - 15 mmol/L [facility] BUN 13 8 - 25 mg/dL [facility] Creatinine 0.63 0.60 - 1.10 mg/dL [facility] Glucose 175 70 - 199 mg/dL [facility] Comment: Interpretive Data Fasting glucose >/= 126 [...] 2017. Calcium 9.9 8.5 - 10.3 mg/dL [facility] Blood specimen (specimen) 12/02/2017 9:17 PM CDT 12/02/2017 9:31 PM CDT Narrative [facility] - 12/02/2017 9:58 PM CDT THE BJ COLLECTION LOCATION IS us Serafin Stark MD LAB BLOOD ORDERABLES Final R esult Performing Organization Address [facility]/ZIP Co de Phone Number [facility] Department [place] [address] * Lipase (12/02/2017 9:17 PM CDT) Lipase 46 10 - 99 Units/L [facility] Blood specimen (specimen) (Blood, Venous) 12/02/2017 9:17 PM CDT 12/02/2017 9:31 PM CDT Narrative [facility] - 12/02/2017 9:58 PM CDT THE COLLECTION LOCATION IS us Serafin Stark MD LAB BLOOD ORDERABLES Final R esult [facility] Department [place] [address] * ECG 12-LEAD (12/02/2017 8:33 PM CDT) Narrative [facility] - 12/02/2017 8:33 PM CDT Serafin Stark [...] Serafin Stark MD ECG ORDERABLES Final Result [facility] * POCT glucose (12/02/2017 8:09 PM CDT) [facility] Glucose, POC 189 70 - 199 mg/dL [facility] Blood specimen (specimen) 12/02/2017 8:09 PM CDT 12/02/2017 8:09 PM CDT Narrative [facility] - 12/02/2017 8:23 PM CDT us Notinfile Unknown LAB POCT ORDERABLES - DEVICE F inal Result Performing Organization Address City/[facility] Co de Phone Number [facility] Department [place] [address] documented in this encounter Visit Diagnoses Not [...] 12/02/2017 documented in this encounter Care Teams Procurement Engineer Relationship Specialty Start Date End Date Guerrero Middleton PA [address] [place] [address] PCP - General 12/02/17 05/27/23 documented as of this encounter
--- OUTSIDE RECORDS SUMMARY | 2024-05-03 22:01 | XMS_ITS | Encounter Summary ---
Author Organization [facility] Healthcare Address [address] [place] [address] Care Team Providers Care Access Representative Name Role Phone Mauri Jaime MD Primary Care Provider [phone]- [phone] Guerrero Middleton Unavailable [phone] Reason for Visit * Auth/Cert (Routine) Specialty Diagnoses / Procedures Referred By Contac t Referred To Contact Diagnoses Chronic pancreatitis, unspecified pancreatitis type (HCC) chronic pancreatitis Procedures TX EDG US EXAM SURGICAL ALTER STOM DUODENUM/JEJUNUM EUS TE/OA interventional Referral ID Status Reason Start Date Expiration Date Visits Re quested Visits Authorized [id number] 1 1 Encounter Details Date Type Department Care Team (Latest Contact Info) Description 06/05/2023 8:25 AM TEAROOM HOSTESS - 06/05/2023 11:57 AM TEAROOM HOSTESS Hospital Encounter [facility] [address] [place] [address] Mikel Galvez MD [address] [place] [address] Chronic pancreatitis, unspecified pancreatitis type (HCC) Discharge [...] on file Legal Sex Female 5:05 AM TEAROOM HOSTESS Gender Identity Not on file Sexual Orientation Not on file documented as of this encounter Last Filed Vital Signs Vital Sign Reading Time Taken Comments Blood Pressure 101/62 06/05/2023 11:38 AM TEAROOM HOSTESS Pulse 76 06/05/2023 11:38 AM TEAROOM HOSTESS Temperature 36.4 ??C (97.5 ??F) 06/05/2023 10:[address] Respiratory Rate 22 06/05/2023 11:38 AM TEAROOM HOSTESS Oxygen Saturation 94% 06/05/2023 11:38 AM TEAROOM HOSTESS Inhaled Oxygen Concentration - - Weight 81.6 kg (180 lb) 06/05/2023 8:58 AM TEAROOM HOSTESS Height 165.1 cm (5' 5 ) 06/05/2023 8:58 AM TEAROOM HOSTESS Body Mass Index 29.95 06/05/2023 8:58 AM TEAROOM HOSTESS documented in this encounter Medications at Time [...] tablet TAKE 1 TABLET BY MOUTH EVERY IT DISASTER RECOVERY MANAGER 06/01/19 22 fenofibrate (TRIGLIDE) 160 mg tablet [...] tablet TAKE 1 TABLET BY MOUTH EVERY IT DISASTER RECOVERY MANAGER 06/01/21 Yes Andrew Escobar MD fenofibrate (TRIGLIDE) [...] planned procedure for the reasons stated above. OOM HOSTESS documented in this encounter Procedure Notes * Mikel Galvez MD - 06/05/2023 9:51 AM CSTAssociated Order(s): EUS [facility] Patient Name: Casandra Jones Procedure Date: 06/05/2023 9:51 AM Date of : 1975 Admit Type: Outpatient Age: 47 Gender: Female Attending MD: Mikel Galvez M.D. Room: [facility] ENDOSCOPY ROOM 2 Note Status: Finalized [...] obtained.The Olympus curved linear array therapeutic endosonoscope [id number] was introduced through the mouth, and advanced [...] following this procedure please call my office [phone]). After hours and evenings please call [phone] and speak to the GI fellow solution mixer. Please tell the fellow that Dr. Galvez [...] On: 06/05/2023 9:51 AM Recognized by the [employer] for promoting quality in endoscopy OOM HOSTESS documented in this encounter Plan of Treatment Pending Results Name Type Priority Associated Diagnoses Date/Time ESOPHAGOGASTRODUODENOSCOPY ENDOSCOPIC ULTRASOUND Endo Imaging Procedure IP Routine Chronic pancreatitis, unspecified pancreatitis type (HCC) 06/05/2023 10:37 AM TEAROOM HOSTESS documented as of this encounter Procedures Procedure Name Priority Date/Time Associated Diagnosis Comments US ENDOSCOPIC IP Routine 06/05/2023 10:37 AM TEAROOM HOSTESS Chronic pancreatitis, unspecified pancreatitis type (HCC) EUS 06/05/2023 9:51 AM TEAROOM HOSTESS POCT GLUCOSE DEVICE Routine 06/05/2023 9 :14 AM TEAROOM HOSTESS documented in this encounter Results * EUS (06/05/2023 9:51 AM TEAROOM HOSTESS) Anatomical Region Laterality Modality Other Narrative Procedure Note Mikel Galvez MD - 06/05/2023 9:51 AM CST [facility] Patient Name: Casandra Jones Procedure Date: 06/05/2023 9:51 AM Date of : 1975 Admit Type: Outpatient Age: 47 Gender: Female Attending MD: Mikel Galvez M.D. Room: [facility] ENDOSCOPY ROOM 2 Note Status: Finalized [...] consent was obtained.The Olympuscurved linear array therapeutic [id number] was introduced through the mouth, and advanced [...] following this procedure please call my office [phone]). After hours and eveningsplease call [phone] and speak to the GI fellow ollie. [...] On: 06/05/2023 9:51 AM Recognized by the [employer] for promoting quality in endoscopy Mikel Galvez MD ENDOSCOPY PROCEDURES Final Result * POCT glucose (06/05/2023 9:14 AM TEAROOM HOSTESS) Glucose, POC 124 70 - 199 mg/dL [facility] Blood 06/05/2023 9:14 AM TEAROOM HOSTESS 06/05/2023 9:14 AM TEAROOM HOSTESS Mikel Galvez MD LAB POCT ORDERABLES - ALBARO CE Final Result [facility]SAY [facility] Department [place] [address] documented in this encounter Visit Diagnoses Diagnosis [...] tablet TAKE 1 TABLET BY MOUTH EVERY IT DISASTER RECOVERY MANAGER 06/01/19 22 doxepin 6 mg tablet Take [...] 06/05/2023 documented in this encounter Care Teams Access Representative Relationship Specialty Start Date End Date Mauri Jaime MD [address] [place] [address] PCP - General Internal Medicine 05/28/23 Guerrero Middleton PA [address] [place] [address] 05/28/23 documented as of this encounter
--- OUTSIDE RECORDS SUMMARY | 2024-05-03 22:01 | XMS_ITS | Encounter Summary ---
Author Organization [facility] Address [address] [place] [address] Phone Care Team Providers Care Can Machine Operator Name Role Phone Mauri Jaime MD Primary Care Provider [phone] Guerrero Middleton Unavailable [phone] Encounter Details Date Type Department Care Team (Late st Contact Info) Description 07/25/2023 Telephone [facility] Gastroenterology [address] 12th [place] [address] [place] [address] Matt Rees Social History Tobacco [...] on file Legal Sex Female 5:05 AM PROBATION OFFICER Gender Identity Not on file Sexual Orientation Not on file documented as of this encounter Miscellaneous Notes * Telephone Encounter - Matt Rees - 07/25/2023 10:44 AM CDT Lvm x4 to coordinate imaging. Sending letter. * Telephone Encounter - CabreraMatt - 07/25/2023 10:44 AM CDT ----- Message from Manisha Resendiz RN sent at 06/05/2023 2:09 PM PROBATION OFFICER ----- Regarding: ROV + MRCP Hi Matt, Can you please coordinate the following from Dr. Galvez's recommendations: Return to my office in 3 months. MRCP prior to clinic visit. Thank you, CLAU Dyer BSN Clinical Nurse Coordinator, [facility] [place] [facility] in [place], documented in this encounter Plan of Treatment Not on file documented as of this encounter Visit Diagnoses Not on filedocumented in this encounter Care Teams Can Machine Operator Relationship Specialty Start Date End Date Mauri Jaime MD [address] [place] [address] PCP - General Internal Medicine 05/28/23 Guerrero Middleton PA [address] [place] [address] 05/28/23 documented as of this encounter
--- OUTSIDE RECORDS SUMMARY | 2024-05-03 22:01 | XMS_ITS | Referral Summary ---
Author Organization [facility] Address [address] [place] [address] Care Team Providers Care Beck Operator Name Role Phone Mauri Jaime MD Primary Care Provider [phone] Guerrero Middleton PA Unavailable [phone] Allergies Active Allergy Reactions Criticality Noted Date [...] tablet TAKE 1 TABLET BY MOUTH EVERY PROPERTY TECHNICIAN 022 Active fenofibrate (TRIGLIDE) 160 mg tablet [...] on file Legal Sex Female 5:05 AM MEDICINE AIDE Gender Identity Not on file Sexual Orientation Not on file Last Filed Vital Signs Vital Sign Reading Time Taken Comments Blood Pressure 101/62 06/05/2023 11:38 AM MEDICINE AIDE Pulse 76 06/05/2023 11:38 AM MEDICINE AIDE Temperature 36.4 ??C (97.5 ??F) 06/05/2023 10:[address] Respiratory Rate 22 06/05/2023 11:38 AM MEDICINE AIDE Oxygen Saturation 94% 06/05/2023 11:38 AM MEDICINE AIDE Inhaled Oxygen Concentration - - Weight 81.6 kg (180 lb) 06/05/2023 8:58 AM MEDICINE AIDE Height 165.1 cm (5' 5 ) 06/05/2023 8:58 AM MEDICINE AIDE Body Mass Index 29.95 06/05/2023 8:58 AM MEDICINE AIDE Plan of Treatment Not on file Insurance [facility] Smart Gardener [facility] Smart Gardener [facility] [employer] [facility] Care Teams Beck Operator Relationship Specialty Start Date End Date Mauri Jaime MD [address] [place] [address] PCP - General Internal Medicine 05/28/23 Guerrero Middleton PA [address] [place] [address] 05/28/23
--- OUTSIDE RECORDS SUMMARY | 2024-05-03 22:01 | XMS_ITS | Encounter Summary ---
Author Organization [facility] [place] [facility] Address [address] [place] [address] Phone Care Team Providers Care Mathematical Engineering Technician Name Role Phone Mauri Jaime MD Primary Care Provider [phone]- [phone] Guerrero Middleton Unavailable [phone] Encounter Details Date Type Department Care Team (Late st Contact Info) Description 06/06/2023 Telephone [facility] Gastroenterology [address] 12[address] [place] [address] [place] [address] Matt Rees Social History Tobacco [...] on file Legal Sex Female 5:05 AM SCALE OPERATOR Gender Identity Not on file Sexual Orientation Not on file documented as of this encounter Miscellaneous Notes * Telephone Encounter - Matt Rees - 06/06/2023 3:43 PM CST Lvm x1 to set imaging/ov for August. Cancelled IOV with Dr. Boateng since pt will be following with . E OPERATOR * Telephone Encounter - Matt Rees - 06/06/2023 3:43 PM CST ----- Message from Manisha Resendiz RN sent at 06/05/2023 2:09 PM SCALE OPERATOR ----- Regarding: ROV + MRCP Hi Matt, Can you please coordinate the following from Dr. Galvez's recommendations: Return to my office in 3 months. MRCP prior to clinic visit. Thank you, CLAU Dyer BSN Clinical Nurse Coordinator, [facility] E OPERATOR documented in this encounter Plan of Treatment Not on file documented as of this encounter Visit Diagnoses Not on filedocumented in this encounter Care Teams Mathematical Engineering Technician Relationship Specialty Start Date End Date Mauri Jaime MD [address] [place], [place] [id number] PCP - General Internal Medicine 05/28/23 Guerrero Middleton PA [address] [place] [address] 05/28/23 documented as of this encounter
--- OUTSIDE RECORDS SUMMARY | 2024-05-03 22:01 | XMS_ITS | Encounter Summary ---
Author Organization [facility] Healthcare Address [address] [place] [address] Care Team Providers Care Clay Processing Factory Worker Name Role Phone Mauri Jaime MD Primary Care Provider [phone]- [phone] Guerrero Middleton Unavailable [phone] Encounter Details Date Type Department Care Team (Latest Contact Info) Description 05/28/2023 11:43 PM MAT WEAVER - 05/28/2023 11:59 PM MAT WEAVER Hospital Encounter [facility] [address] [place] [id number] Diagnosis unknown Discharge Disposition: Discharge to home or self care Social History Tobacco Use Types Packs/Day Years Used Date Smoking Tobacco: Never Assessed Personal Safety Answer Date Recorded Getting School Help Needed Not on file 05/29 Comments Unknown Sex and Gender Information Value Date Recorded Sex Assigned at Not on file Legal Sex Female 5:05 AM MAT WEAVER Gender Identity Not on file Sexual Orientation [...] tablet TAKE 1 TABLET BY MOUTH EVERY PLATE MAKER ZINC 06/01/19 22 fenofibrate (TRIGLIDE) 160 mg tablet [...] BODY OUTSIDE CONSULT Routine 05/28/2023 11:43 PM MAT WEAVER Diagnosis unknown documented in this encounter Results * CT Body Outside Consult (05/28/2023 11:43 PM MAT WEAVER) Anatomical Region Laterality Modality Body N/A Computed Tomogra phy 05/29/2023 11:0 4 AM MAT WEAVER Impressions 05/29/2023 11:04 AM MAT WEAVER Trace free fluid along the pancreatic tail [...] images may or may not represent the nez perce source data set and thus may contain changes that may lower the accuracy of this second-opinion interpretation. Electronically signed by: MD Phoebe Castellano 05/29/2023 11:04 AM MAT WEAVER EXAMINATION: RADIOLOGY CONSULTATION ON OUTSIDE IMAGING STUDY STUDY INITIALLY PERFORMED: 05/06/2023 at [facility]. TYPE OF STUDY: Multiple CT images [...] IMAGING STUDY STUDY INITIALLY PERFORMED: 05/06/2023 at [facility]. TYPE OF STUDY: Multiple CT images [...] images may or may not represent the nez perce source data set and thus may contain changes that may lower the accuracy of this second-opinion interpretation. Electronically signed by: Phoenix Mcclain MD Ang Tam MD IMG CT PROCEDURES Fin al Result documented in this encounter Visit Diagnoses Diagnosis Diagnosis unknown documented in this encounter Care Teams Clay Processing Factory Worker Relationship Specialty Start Date End Date Mauri Jaime MD [address] [place] [address] PCP - General Internal Medicine 05/28/23 Guerrero Middleton PA [address] [place] [address] 05/28/23 documented as of this encounter
== END 2024-04-26 18:17 | disposition home or self-care (01) ==
PROVIDERS: Emergency Provider Physician Assistant; PCP Nurse Practitioner
DX: M25.512 Pain in left shoulder (principal); G89.29 Other chronic pain; M75.02 Adhesive capsulitis of left shoulder; Z79.4 Long term (current) use of insulin; K21.9 Gastro-esophageal reflux disease without esophagitis; E78.5 Hyperlipidemia, unspecified; E03.9 Hypothyroidism, unspecified; E11.9 Type 2 diabetes mellitus without complications; F17.210 Nicotine dependence, cigarettes, uncomplicated
CPT/HCPCS: 96372; 99283; A9270; J1885

== ENCOUNTER 2024-06-06 22:14 | Inpatient (IN) | payer MEDICARE, SELFPAY ==
--- NOTE | ~2024-06-06 | CT_ITS ---
EXAMINATION: CT abdomen pelvis w con DATE: 06/07/2024 03:06 INDICATION: Upper abdominal pain. Chronic pancreatitis. TECHNIQUE: Computed tomography (CT) of the abdomen and pelvis was performed with 100 mL Omnipaque-350 intravenous contrast. Automated exposure control and iterative reconstruction technique were employe d. The dose-length product was 1161.15 mGy-cm. COMPARISON: 05/02/2024 FINDINGS: Mild dependent atelectasis in bilateral lower lobes. Heart size normal. Atherosclerotic coronary paula ry calcific location. No pericardial effusion. Focal hepatic steatosis at the ligamentum teres in the junction of the gallbladder fossa the left and right sides of the sabas hepatis. Gallbladder, pancre as, bilateral adrenal glands and right kidney are normal. There is some external rotation of the lower pole of the left kidney with the inferior hilum facing a nterolaterally as well as small accessory renal artery and veins arising from the left common iliac a rtery and vein respectively extend to the inferior left renal pelvis around the posterior margin of the lower pole. Unchanged 1-2 mm nonobstructing ston e at the lower pole of the left kidney. Unchanged mild left hydronephrosis with no evident obstructin g stone or mass evident at the transition point at the ureteropelvic junction. 1 cm intermediate atte nuation proteinaceous/hemorrhagic cyst at the lower pole the left kidney which is unchanged since MRI dated 12/07/2016 at which time it demonstrated no enhancement. Spleen is normal with no interval mcmanus ge in a chronic small crescentic fluid collection along its caudal margin which can be seen dating back to 04/03/2022. No bowel obstruction. The appendix is not visualized. No pericecal inflammatory change to suggest acu te appendicitis. Bladder is normal. Bilateral adnexa are unremarkable. The uterus is not identified a nd has likely been surgically resected. No free intraperitoneal gas or fluid. No pathologically enlar ged abdominal or pelvic lymphadenopathy. Mild thoracolumbar spondylosis. IMPRESSION: 1. No acute intra-abdominal/pelvic process. 2. Mild left hydronephrosis likely related to chronic UPJ obstruction with unchanged 1-2 mm nonobstru cting left renal stone but no evident obstructing stone or mass at the transition point at the ureter opelvic junction. Reviewed, dictated and finalized at location [facility]. [facility] CONSULT[facility] IMPRESSION: 1. No acute intra-abdominal/pelvic process. 2. Mild left hydronephrosis likely related to chronic UPJ obstruction with unch anged 1-2 mm nonobstructing left renal stone but no evident obstructing stone o r mass at the transition point at the ureteropelvic junction.
[2024-06-06 22:16] VITALS: BP 137/79; PULSE 105; RESP 16; TEMP 36.6; O2SAT 99
--- OUTSIDE RECORDS SUMMARY | 2024-06-06 22:16 | XMS_ITS | Encounter Summary ---
Author Organization [facility] Address [address] [place] [address] Care Team Providers Care Butcher Supervisor Name Role Phone Guerrero Middleton PA-C Primary Care Provide r Encounter Details Date Type Department Care Team (Late st Contact Info) Description 01/04/2022 Telephone [facility] [address] [place] [address] Phoenix Riddle MD [address] [facility] [address] [facility] Department [place] [address] Social History Tobacco Use Types [...] things needed for daily living? No 08/21/2018 Comments No Sex and Gender Information Value Date Recorded Sex Assigned at Not on file Legal Sex Female 6:07 AM COPPER ETCHER Gender Identity Not on file Sexual Orientation Not on file Occupation Industry Job Start Date Job End Date Not on file Not on file Not on file Not on file COVID-19 Exposure Response Date [...] [facility] [address] [place] [address] Marlys Mayer MD [address] [place] [address] documented as of this encounter Visit Diagnoses Not on filedocumented in this encounter Additional Health Concerns Infection Onset Date Last Indicated Resolved Time R/O GI Pathogen 09/19/2023 09/19/2023 09/21/2023 7 :33 AM CDT documented as of this encounter Care Teams Butcher Supervisor Relationship Specialty Start Date End Date Guerrero Middleton PA-C PCP - General Physician Hemmer Chainstitch 02/13/18 documented as of this encounter
--- OUTSIDE RECORDS SUMMARY | 2024-06-06 22:16 | XMS_ITS | Clinical Summary ---
Author Organization [facility] Address [address] [place] [address] Phone Care Team Providers Care Coal Hiker Name Role Phone Guerrero Middleton PA-C Primary Care Provide r Allergies Active Allergy Reactions Criticality Noted Date Comments Adhesive Unknown 03/07/2018 Adhesive Tape-Silicones Hives High 02/10/2018 Aspartame Headache Low 05/16/2018 Stephens Pepper Hives High 02/10/2018 Medications traZODone (DESYREL) 100 mg tablet Take 100 mg by mouth daily at bedtime . Active citalopram (CeleXA) 40 mg tablet TAKE 1 TABLET BY MOUTH EVERY DAY 90 Tablet 1 1 Active fenofibrate (LOFIBRA) 160 mg Tablet TAKE 1 TABLET BY MOUTH EVERY DAY 90 Tablet 2 Active pantoprazole (PROTONIX) 40 mg Tablet, Delayed [...] hours as needed for Nausea/Emesis. 30 Tablet 4 Active lipase-protease- amylase DR (Creon) 36,000-114,000-1 80,000 unit capsule Take 2 Capsules by mouth 3 times daily with meals. 180 Capsule 4 Active metoprolol succinate (TOPROL XL) 25 mg Extended Release 24 hour tablet Take 0.5 Tablets (12.5 mg) by mouth daily. 15 Tablet 4 Active oxyCODONE (ROXICODONE) 10 mg tabletIndication s:Acute on chronic pancreatitis (CMS/HCC),Other acute pancreatitis without infection or necrosis Take 1 Tablet (10 mg) by mouth every 6 hours. Max Daily Amount: 40 mg 20 Tablet 4 Active losartan potassium (LOSARTAN ORAL) Take by mouth. Active buspirone HCl (BUSPAR ORAL) Take by mouth. A ctive LORazepam (ATIVAN) 1 mg tablet Take 1 mg by mouth every 6 hours as needed for Anxiety. Active metFORMIN (GLUCOPHAGE) 1,000 mg tablet Take 1 Tablet (1,000 mg) by mouth 2 times daily with meals. HOLD for 48h post LHC 4 Active Blood-Glucose Sensor (ImpulseSavecom G7 Sensor) Device 4 Active buPROPion HCL (WELLBUTRIN SR) 150 mg Sustained Release 12 hour tablet Take 1 Tablet by mouth daily. 4 Active NovoLOG U-100 Insulin aspart 100 unit/mL vial INFUSE 100 UNITS VIA CONTINUOUS SUBCUTANEOUS INFUSION DAILY WITH A MAX DAILY DOSE OF 100 UNITS Active BD Insulin Syringe Ultra-Fine 0.3 mL 31 gauge x /16 Syringe 4 Active levothyroxine 200 mcg tablet Take 1 Tablet by mouth daily. 4 Active docusate sodium (COLACE) 100 mg capsule TAKE 1 CAPSULE BY MOUTH EVERY 12 HOURS NEEDED FOR CONSTIPATION 4 Active metoclopramide HCl (REGLAN) 5 mg tablet take 1 tablet by mouth every 6 hours as needed for nausea and vomiting 4 Active Active Problems Patient Care Coordination No te Formatting of this note migh t be different from the original. Marlys Mayer MD--Automation Machine Builder ([facility] @ ) Problem Noted [...] Encounters Date Type Department Care Team Description 06/02/2024 External Device Data STL ABSTRACTION Provider, Abstract 06/02/2024 Abstract [facility] V[facility] At [address] [place] [address] Marlys Mayer MD 06/02/2024 Telephone [facility] At [address] [place] [address] Marlys Mayer MD Medical Records 05/27/2024 External Device Data STL ABSTRACTION Provider, Abstract 05/12/2024 External Device Data STL ABSTRACTION Provider, Abstract 04/21/2024 External Device Data STL ABSTRACTION Provider, Abstract 04/20/2024 3:00 PM WARP KNITTER Office Visit [facility] Heart and Vascular - [facility] [address] [place] [address] Marlys Mayer MD 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 (Primary Dx); Type 1 diabetes mellitus without complication (CMS/HCC); Chylomicronemia syndrome; Chronic recurrent pancreatitis ([facility]/HCC) 04/14/2024 Abstract [facility] V[facility] At [address] [place] [address] Marlys Mayer MD 03/23/2024 Telephone [facility] V[facility] At [address] [place] [address] Marlys Mayer MD Medication Question from Last 3 Months Immunizations Immunization Administration Dates Next Due INFLUENZA VACCINE QUADRIVALE [...] Answer Date Recorded Social/Environmental Concerns No concerns 05 / Comments No Sex and Gender Information Value Date Recorded Sex Assigned at Not on file Legal Sex Female 6:07 AM WARP KNITTER Gender Identity Not on file Sexual Orientation Not on file Occupation Industry Job Start Date Job End Date Not on file Not on file Not on file Not on file Last Filed Vital Signs Vital Sign Reading Time Taken Comments Blood Pressure 112/70 04/20/2024 3:12 PM WARP KNITTER Pulse 103 04/20/2024 3:12 PM WARP KNITTER Temperature 36.5 C (97.7 F) 11/29/2023 10:58 AM CDT Respiratory Rate 21 11/29/2023 6:15 PM CDT Oxygen Saturation 96% 04/20/2024 3:12 PM WARP KNITTER Inhaled Oxygen Concentration - - Weight 86.6 kg (191 lb) 04/20/2024 3:12 PM WARP KNITTER Height 165.1 cm (5' 5 ) 04/20/2024 3:12 PM WARP KNITTER Body Mass Index 31.78 04/20/2024 3:12 PM WARP KNITTER Plan of Treatment Upcoming Encounters Date Type Department Care Team (Late st Contact Info) Description 09/14/2024 3:00 PM CDT Office Visit [facility] - [place] [address] [place] [address] Marlys Mayer MD [address] [place] [address] Health Maintenance Due Date Last Done Comments DIABETES ANNUAL RETINAL EXAM 11/24/1993 DIABETES MICROALBUMIN [...] history exists Medical Devices Implanted Type Area Academic Affairs Specialist Device Identifier Shelf Expiration Date Model / Serial / Lot Cath Hemodlys Glidespath 23cm [id number] Implanted:Qty : 1 on 04/10/2018 by Kayla Sheffield MD Catheter CR BARD[employer] [id number] 08/27/2019 [id number] / / [id number] Description:14.5fr x 23cm; R IJ Port-10/29/2018 Implanted:Qty : 2 on 10/29/2018 by Laverne Willoughby MD Explanted:Qty : 1 on 02/18/2019 by Michael Powell MD Port Right: Chest Wall CR BARD- ACCESS SYS 07/28/2019 / / [id number] Description:two 9.6fr fower flow apheresis ports placed by Dr. Willoughby Port- 0 Implanted:Qty : 1 on 05/11/2019 by Alfa Forrest MD Port Left: Chest Wall CR BARD- ACCESS SYS 08/26/2020 / / [id number] Stent Synergy Xd 4.0x12mm Evrlms Elut [id number] - [id number] Implanted:Qty : 1 on 11/29/2023 by Miguel Lewis MD at [facility] Stent N/A: Coronary [employer] [id number] 03/19/2024 [id number] / / [id number] Procedures Procedure Name Priority Date/Time Associated Diagnosis Comments LDL CHOLESTEROL, DIRECT Stat 09/19/2023 12:59 AM CDT HEMOGLOBIN A1C Routine 09/18/2023 10:18 PM CDT from Last 3 Months or Most Recently Relevant to Health Maintenance Results * LDL CHOLESTEROL, DIRECT (09/19/2023 12:59 AM CDT) LDL CHOLESTEROL, DIRECT 47 <100 mg/dL 09/19/2023 5:52 AM CDT [facility] Blood Venipuncture / Unknown 09/19/2023 12:59 AM CDT 09/19/2023 1:09 AM CDT Narrative [facility] - 09/19/2023 5:52 AM CDT LDL CHOLESTEROL mg/dL LDL <70, OPTIMAL if have Atherosclerotic cardiovascular disease (ASCVD) or intermediate or higher (>7.5%) 10 year risk of ASCVD including most adults with diabetes. LDL <100, Optimal in adult patients with low (<7.5%) 10 year ASCVD risk LDL 100-160, Suboptimal LDL >160, High LDL >190, Very high Based on AHA/NCEP guidelines Yojana Washington MD CHEMISTRY ORDERABLES Fin al Result [facility]# [id number] [address] [facility] [place] [address] * (ABNORMAL) HEMOGLOBIN A1C (09/18/2023 10:18 PM CDT) HEMOGLOBIN A1C 9.7(H) <5.7 % 09/19/2023 10:59 AM CDT [facility] EST. AVG GLUCOSE, A1C 232 mg/dL 09/19/2023 10:59 AM CDT [facility] Blood Venipuncture / Unknown 09/18/2023 10:18 PM CDT 09/18/2023 10:26 PM CDT Narrative [facility] - 09/19/2023 10:59 AM CDT HGB A1C INTERPRETATION NORMAL: <5.7% PRE-DIABETES: 5.7 - 6.4% DIABETES: 6.5% OR GREATER us Herlinda Mederos DO CHEMISTRY ORDERABLES Final Resul t [facility] CLIA# [id number] [address] [place] [address] from Last 3 Months or Most Recently Relevant to Health Maintenance Insurance AETNA O [facility] RX AETNA Medicare Part D RX [employer] PLANS (INTERNAL) [facility] RX [employer]O PLANS (INTERNAL) [facility] AETNA PPO MCR Advance Directives For more information, please contact: [phone] * Full Code (Latest Code Status on [...] 12:11 AM 01/02/2021 4:26 PM Care Teams Coal Hiker Relationship Specialty Start Date End Date Guerrero Middleton PA-C PCP - General Physician Heat Treater Helper 02/13/18
--- OUTSIDE RECORDS SUMMARY | 2024-06-06 22:16 | XMS_ITS | Encounter Summary ---
Author Organization [facility] Address [address] [place] [address] Care Team Providers Care Insulation Applicator Name Role Phone Guerrero Middleton PA-C Primary Care Provide r Encounter Details Date Type Department Care Team (Late st Contact Info) Description 10/13/2021 Telephone [facility] Oncology [address] [place] [address] Phoenix Riddle MD [address] [facility] Department [place] [address] Social History Tobacco Use Types [...] on file Legal Sex Female 6:07 AM PLANT MACHINIST Gender Identity Not on file Sexual Orientation [...] Name [facility] Heart and Vascular - [facility] [address] [place] [address] Marlys Mayer MD [address] [place] [address] documented as of this encounter Visit Diagnoses Not on filedocumented in this encounter Additional Health Concerns Infection Onset Date Last Indicated Resolved Time R/O GI Pathogen 09/19/2023 09/19/2023 09/21/2023 7 :33 AM CDT documented as of this encounter Care Teams Insulation Applicator Relationship Specialty Start Date End Date Guerrero Middleton PA-C PCP - General Physician Mold Shaker 02/13/18 documented as of this encounter
--- OUTSIDE RECORDS SUMMARY | 2024-06-06 22:16 | XMS_ITS | Encounter Summary ---
Author Organization [facility] Address [address] [place] [address] Care Team Providers Care Agile Developer Name Role Phone Guerrero Middleton PA-C Primary Care Provide r Reason for Visit * Reason Onset Date Comments Bard Port flush 11/16/2021 Attempted to patel ch pt due to needing bard port flushes Encounter Details Date Type Department Care Team (Late st Contact Info) Description 11/16/2021 Telephone [facility] Oncology [address] [place] [address] Nicole Rosas MD [address] [place] [address] Bard Port flush (Attempted to [...] on file Legal Sex Female 6:07 AM PATIENT SUPPORT ASSOCIATE Gender Identity Not on file Sexual Orientation Not on file Occupation Industry Job Start Date Job End Date Not on file Not on file Not on file Not on file documented as of this encounter Plan of Treatment Upcoming Encounters Date Type Department Care Team (Late st Contact Info) Description 09/14/2024 3:00 PM CDT Office Visit [facility] Heart and Vascular - [facility] [address] [place] [address] Marlys Mayer MD [address] [place] [address] documented as of this encounter Visit Diagnoses Not on filedocumented in this encounter Additional Health Concerns Infection Onset Date Last Indicated Resolved Time R/O GI Pathogen 09/19/2023 09/19/2023 09/21/2023 7 :33 AM CDT documented as of this encounter Care Teams Agile Developer Relationship Specialty Start Date End Date Guerrero Middleton PA-C PCP - General Physician Netezza Developer 02/13/18 documented as of this encounter
--- OUTSIDE RECORDS SUMMARY | 2024-06-06 22:16 | XMS_ITS | Clinical Summary ---
Author Organization [facility] Address [address] [address] Phone Care Team Providers Care Dance Costume Designer Name Role Phone Jose G Palmer MD Unavailable [phone] Guerrero Middleton Primary Care Provider Social History [...] 2015 Colonoscopy 11/24/2020 Colorectal Cancer Screening 11/24/2020 Influenza Immunization (#1) 2023 03/04/2021 SARS-COV-2 Immunization ( season) 2023 03/04/2021, 07/20/2020, 06/28/2020 Respiratory Syncytial Virus (RSV) Immunization (Adult) (1 - 1-dose 75+ series) 11/24/2050 Meningococcal Immunization (ACWY) Aged Out No longer eligible b ased on patient's age to complete this topic Pneumococcal Immunization Combined Aged Out No longer eligible b ased on patient's age to complete this topic Rotavirus Immunization Aged Out No lo nger eligible based on patient's age to complete this topic Insurance Care Teams Dance Costume Designer Relationship Specialty Start Date End Date Guerrero Middleton PAC [address] [place] [address] PCP - General Physician Utility Aide 12/10/16 Jose G Palmer MD Consulting Physician Gastroenterology 12/10/16
--- OUTSIDE RECORDS SUMMARY | 2024-06-06 22:16 | XMS_ITS | Encounter Summary ---
Author Organization [facility] Address [address] [place] [address] Care Team Providers Care Pressure Supervisor Name Role Phone Guerrero Middleton PA-C Primary Care Provide r Encounter Details Date Type Department Care Team (Late st Contact Info) Description 11/30/2021 Telephone [facility] Donor Services [address] [address] Nicole Rosas MD [address] [place] [address] Social History Tobacco Use Types [...] on file Legal Sex Female 6:07 AM PVC MONITOR Gender Identity Not on file Sexual Orientation [...] and Vascular - [place] [address] [place] [address] Marlys Mayer MD [address] [place] [address] documented as of this encounter Visit Diagnoses Not on filedocumented in this encounter Additional Health Concerns Infection Onset Date Last Indicated Resolved Time R/O GI Pathogen 09/19/2023 09/19/2023 09/21/2023 7 :33 AM CDT documented as of this encounter Care Teams Pressure Supervisor Relationship Specialty Start Date End Date Guerrero Middleton PA-C PCP - General Physician Hotel Yardperson 02/13/18 documented as of this encounter
--- OUTSIDE RECORDS SUMMARY | 2024-06-06 22:16 | XMS_ITS | Encounter Summary ---
Author Organization [facility] Address [address] [place] [address] Care Team Providers Care Digital Marketing Apprentice Name Role Phone Guerrero Middleton PA-C Primary Care Provide r Reason for Visit * Reason Onset Date Comments petr rubin 09/13/2021 Encounter Details Date Type Department Care Team (Late st Contact Info) Description 09/13/2021 Telephone [facility] Donor Services [address] [address] Gloria Tristan, RN [facility] Social History Tobacco Use Types Packs/Day [...] on file Legal Sex Female 6:07 AM MANUFACTURING ENGINEER Gender Identity Not on file Sexual [...] [facility] [address] [place] [address] Marlys Mayer MD [address] [place] [address] documented as of this encounter Visit Diagnoses Not on filedocumented in this encounter Additional Health Concerns Infection Onset Date Last Indicated Resolved Time R/O GI Pathogen 09/19/2023 09/19/2023 09/21/2023 7 :33 AM CDT documented as of this encounter Care Teams Digital Marketing Apprentice Relationship Specialty Start Date End Date Guerrero Middleton PA-C PCP - General Physician Furniture Finisher 02/13/18 documented as of this encounter
--- OUTSIDE RECORDS SUMMARY | 2024-06-06 22:16 | XMS_ITS | Encounter Summary ---
Author Organization [facility] Address [address] [place] [address] Care Team Providers Care Unit Control Worker Name Role Phone Guerrero Middleton PA-C Primary Care Provide r Encounter Details Date Type Department Care Team (Late st Contact Info) Description 12/08/2021 Telephone [facility] Donor Services [facility] [address] [place] [address] Phoenix Riddle MD [address] [facility] Department [place] [address] Social History Tobacco Use Types [...] on file Legal Sex Female 6:07 AM DOOR MAKER Gender Identity Not on file Sexual Orientation [...] [place] [facility] [address] [place] [address] Marlys Mayer MD [address] [place] [address] documented as of this encounter Visit Diagnoses Not on filedocumented in this encounter Additional Health Concerns Infection Onset Date Last Indicated Resolved Time R/O GI Pathogen 09/19/2023 09/19/2023 09/21/2023 7 :33 AM CDT documented as of this encounter Care Teams Unit Control Worker Relationship Specialty Start Date End Date Guerrero Middleton PA-C PCP - General Physician Quiller Machine Fixer 02/13/18 documented as of this encounter
--- OUTSIDE RECORDS SUMMARY | 2024-06-06 22:16 | XMS_ITS | Encounter Summary ---
Author Organization [facility] Address [address] [place] [address] Care Team Providers Care Assistant Hall Director Name Role Phone Guerrero Middleton PA-C Primary Care Provide r Reason for Visit * Reason Onset Date Comments OTHER 11/21/2021 Encounter Details Date Type Department Care Team (Late st Contact Info) Description 11/21/2021 Telephone [facility] Oncology [address] [place] [address] Nicole Rosas MD [address] [place] [address] OTHER Social History Tobacco Use [...] on file Legal Sex Female 6:07 AM LODE MINER BLASTING Gender Identity Not on file Sexual Orientation [...] [facility] - [facility] [address] [place] [address] Marlys Mayer MD [address] [place] [address] documented as of this encounter Visit Diagnoses Not on filedocumented in this encounter Additional Health Concerns Infection Onset Date Last Indicated Resolved Time R/O GI Pathogen 09/19/2023 09/19/2023 09/21/2023 7 :33 AM CDT documented as of this encounter Care Teams Assistant Hall Director Relationship Specialty Start Date End Date Guerrero Middleton PA-C PCP - General Physician Television Camera Operator 02/13/18 documented as of this encounter
--- OUTSIDE RECORDS SUMMARY | 2024-06-06 22:16 | XMS_ITS | Encounter Summary ---
Author Organization [facility] Address [address] [place] [address] Care Team Providers Care International Banker Name Role Phone Guerrero Middleton PA-C Primary Care Provide r Encounter Details Date Type Department Care Team (Late st Contact Info) Description 10/26/2021 Telephone [facility] Donor Services [address] [address] Nicole Rosas MD [address] [place] [address] Social History Tobacco Use Types [...] on file Legal Sex Female 6:07 AM HEADLINE WRITER Gender Identity Not on file Sexual Orientation [...] [facility] - [place] [address] [place] [address] Marlys Mayer MD [address] [place] [address] documented as of this encounter Visit Diagnoses Not on filedocumented in this encounter Additional Health Concerns Infection Onset Date Last Indicated Resolved Time R/O GI Pathogen 09/19/2023 09/19/2023 09/21/2023 7 :33 AM CDT documented as of this encounter Care Teams International Banker Relationship Specialty Start Date End Date Guerrero Middleton PA-C PCP - General Physician Party Plan Sales Agent 02/13/18 documented as of this encounter
--- OUTSIDE RECORDS SUMMARY | 2024-06-06 22:16 | XMS_ITS | Clinical Summary ---
Author Organization [facility] Address [address] [place] [address] Care Team Providers Care Link And Link Knitting Machine Operator Name Role Phone Mauri Jaime MD Primary Care Provider [phone] Guerrero Middleton PA Unavailable [phone] Allergies Active Allergy Reactions Criticality Noted Date [...] tablet TAKE 1 TABLET BY MOUTH EVERY NURSING SECRETARY 022 Active fenofibrate (TRIGLIDE) 160 mg tablet [...] on file Legal Sex Female 5:05 AM LEATHER DRIER Gender Identity Not on file Sexual Orientation Not on file Obstetrics History Last Filed Vital Signs Vital Sign Reading Time Taken Comments Blood Pressure 101/62 06/05/2023 11:38 AM LEATHER DRIER Pulse 76 06/05/2023 11:38 AM LEATHER DRIER Temperature 36.4 C (97.5 F) 06/05/2023 10:35 AM LEATHER DRIER Respiratory Rate 22 06/05/2023 11:38 AM LEATHER DRIER Oxygen Saturation 94% 06/05/2023 11:38 AM LEATHER DRIER Inhaled Oxygen Concentration - - Weight 81.6 kg (180 lb) 06/05/2023 8:58 AM LEATHER DRIER Height 165.1 cm (5' 5 ) 06/05/2023 8:58 AM LEATHER DRIER Body Mass Index 29.95 06/05/2023 8:58 AM LEATHER DRIER Plan of Treatment Health Maintenance Due Date [...] 03/04/2021, Additional history exists Insurance ANGY [facility] AD[employer]ANTRA [facility]TRA [facility] ADVANTRA Care Teams Link And Link Knitting Machine Operator Relationship Specialty Start Date End Date Mauri Jaime MD [address] [facility] [address] [place] [address] PCP - General Internal Medicine 05/28/23 Guerrero Middleton PA [address] [facility] [address] [place] [address] 05/28/23
--- OUTSIDE RECORDS SUMMARY | 2024-06-06 22:16 | XMS_ITS | Referral Summary ---
Author Organization [facility] Address [address] [place] [address] Care Team Providers Care Woods Warden Name Role Phone Mauri Jaime MD Primary Care Provider [phone] Guerrero Middleton PA Unavailable [phone] Allergies Active Allergy Reactions Criticality Noted Date [...] tablet TAKE 1 TABLET BY MOUTH EVERY CAR DISTRIBUTOR 022 Active fenofibrate (TRIGLIDE) 160 mg tablet [...] on file Legal Sex Female 5:05 AM FIELD KILN BURNER Gender Identity Not on file Sexual Orientation Not on file Last Filed Vital Signs Vital Sign Reading Time Taken Comments Blood Pressure 101/62 06/05/2023 11:38 AM FIELD KILN BURNER Pulse 76 06/05/2023 11:38 AM FIELD KILN BURNER Temperature 36.4 C (97.5 F) 06/05/2023 10:35 AM FIELD KILN BURNER Respiratory Rate 22 06/05/2023 11:38 AM FIELD KILN BURNER Oxygen Saturation 94% 06/05/2023 11:38 AM FIELD KILN BURNER Inhaled Oxygen Concentration - - Weight 81.6 kg (180 lb) 06/05/2023 8:58 AM FIELD KILN BURNER Height 165.1 cm (5' 5 ) 06/05/2023 8:58 AM FIELD KILN BURNER Body Mass Index 29.95 06/05/2023 8:58 AM FIELD KILN BURNER Plan of Treatment Not on file Insurance [facility] [employer] [facility] [employer] [facility] [employer]TRA [facility] [employer] Care Teams Woods Warden Relationship Specialty Start Date End Date Mauri Jaime MD [address] [place] [address] PCP - General Internal Medicine 05/28/23 Guerrero Middleton PA [address] [place] [address] 05/28/23
--- OUTSIDE RECORDS SUMMARY | 2024-06-06 22:16 | XMS_ITS | Encounter Summary ---
Author Organization [facility] Address [address] [place] [address] Care Team Providers Care Manual Lathe Operator Name Role Phone Guerrero Middleton PA-C Primary Care Provide r Encounter Details Date Type Department Care Team (Late st Contact Info) Description 03/14/2022 Telephone [facility] Donor Services [facility] [address] [place] [address] Phoenix Riddle MD [address] [facility] [place] [address] Social History Tobacco Use Types [...] on file Legal Sex Female 6:07 AM EGG GRADER Gender Identity Not on file Sexual Orientation [...] - [facility] [address] [place] [address] Marlys Mayer MD [address] [place] [address] documented as of this encounter Visit Diagnoses Not on filedocumented in this encounter Additional Health Concerns Infection Onset Date Last Indicated Resolved Time R/O GI Pathogen 09/19/2023 09/19/2023 09/21/2023 7 :33 AM CDT documented as of this encounter Care Teams Manual Lathe Operator Relationship Specialty Start Date End Date Guerrero Middleton PA-C PCP - General Physician Automotive Parts Clerk 02/13/18 documented as of this encounter
--- OUTSIDE RECORDS SUMMARY | 2024-06-06 23:13 | XMS_ITS | Encounter Summary ---
Author Organization [facility] Address [address] [place] [address] Care Team Providers Care Scientific Publications Editor Name Role Phone Guerrero Middleton PA-C Primary Care Provide r Reason for Visit * Reason Onset Date Comments petr rubin 09/13/2021 Encounter Details Date Type Department Care Team (Late st Contact Info) Description 09/13/2021 Telephone [facility] Donor Services [address] [address] Gloria Tristan, RN [facility] Social History Tobacco Use Types [...] often do you attend chur ch or hinduism services? Never 08/21/2018 Do you [...] on file Legal Sex Female 6:07 AM ASSURANCE SENIOR MANAGER Gender Identity Not on file Sexual [...] [facility] [place] [facility] [address] [place] [address] Marlys Mayer MD [address] [place] [address] documented as of this encounter Visit Diagnoses Not on filedocumented in this encounter Additional Health Concerns Infection Onset Date Last Indicated Resolved Time R/O GI Pathogen 09/19/2023 09/19/2023 09/21/2023 7 :33 AM CDT documented as of this encounter Care Teams Scientific Publications Editor Relationship Specialty Start Date End Date Guerrero Middleton PA-C PCP - General Physician Commercial Pilot 02/13/18 documented as of this encounter
--- OUTSIDE RECORDS SUMMARY | 2024-06-06 23:13 | XMS_ITS | Clinical Summary ---
Author Organization [facility] Address [address] [place] [address] Care Team Providers Care Glue Specialty Supervisor Name Role Phone Mauri Jaime MD Primary Care Provider [phone] Guerrero Middleton PA Unavailable [phone] Allergies Active Allergy Reactions Criticality Noted Date [...] TAKE 1 TABLET BY MOUTH EVERY PLATE FORMER 022 Active fenofibrate (TRIGLIDE) 160 mg tablet [...] on file Legal Sex Female 5:05 AM PICKER TENDER Gender Identity Not on file Sexual Orientation Not on file Obstetrics History Last Filed Vital Signs Vital Sign Reading Time Taken Comments Blood Pressure 101/62 06/05/2023 11:38 AM PICKER TENDER Pulse 76 06/05/2023 11:38 AM PICKER TENDER Temperature 36.4 C (97.5 F) 06/05/2023 10:35 AM PICKER TENDER Respiratory Rate 22 06/05/2023 11:38 AM PICKER TENDER Oxygen Saturation 94% 06/05/2023 11:38 AM PICKER TENDER Inhaled Oxygen Concentration - - Weight 81.6 kg (180 lb) 06/05/2023 8:58 AM PICKER TENDER Height 165.1 cm (5' 5 ) 06/05/2023 8:58 AM PICKER TENDER Body Mass Index 29.95 06/05/2023 8:58 AM PICKER TENDER Plan of Treatment Health Maintenance Due Date [...] 03/04/2021, Additional history exists Insurance [facility]GY BR[facility] ADVANTRA [facility] [employer]TRA [facility] [employer]TRA Care Teams Glue Specialty Supervisor Relationship Specialty Start Date End Date Mauri Jaime MD [address] [facility] [address] [place] [address] PCP - General Internal Medicine 05/28/23 Guerrero Middleton PA [address] [facility] [address] [place] [address] 05/28/23
--- OUTSIDE RECORDS SUMMARY | 2024-06-06 23:13 | XMS_ITS | Encounter Summary ---
Author Organization [facility] Address [address] [place] [address] Care Team Providers Care Leather Whitener Name Role Phone Guerrero Middleton PA-C Primary Care Provide r Encounter Details Date Type Department Care Team (Late st Contact Info) Description 01/04/2022 Telephone [facility] Donor Services [facility] [address] [place] [address] Phoenix Riddle MD [address] [facility] Department [place] [address] Social History Tobacco Use Types [...] on file Legal Sex Female 6:07 AM ELEVATOR INSTALLER APPRENTICE Gender Identity Not on file Sexual Orientation [...] [facility] - Same[address] [place] [address] Marlys Mayer MD [address] [address] [place] [address] documented as of this encounter Visit Diagnoses Not on filedocumented in this encounter Additional Health Concerns Infection Onset Date Last Indicated Resolved Time R/O GI Pathogen 09/19/2023 09/19/2023 09/21/2023 7 :33 AM CDT documented as of this encounter Care Teams Leather Whitener Relationship Specialty Start Date End Date Guerrero Middleton PA-C PCP - General Physician Rand Butter 02/13/18 documented as of this encounter
--- OUTSIDE RECORDS SUMMARY | 2024-06-06 23:13 | XMS_ITS | Encounter Summary ---
Author Organization [facility] Address [address] [place] [address] Care Team Providers Care Division Service Manager Name Role Phone Guerrero Middleton PA-C Primary Care Provide r Encounter Details Date Type Department Care Team (Late st Contact Info) Description 11/30/2021 Telephone [facility] Donor Services [address] [address] Nicole Rosas MD [address] [place] [address] Social History Tobacco Use Types [...] on file Legal Sex Female 6:07 AM MANAGER OF COMMUNITY RELATIONS Gender Identity Not on file Sexual Orientation [...] [facility] [place] [address] [place] [address] Marlys Mayer MD [address] [place] [address] documented as of this encounter Visit Diagnoses Not on filedocumented in this encounter Additional Health Concerns Infection Onset Date Last Indicated Resolved Time R/O GI Pathogen 09/19/2023 09/19/2023 09/21/2023 7 :33 AM CDT documented as of this encounter Care Teams Division Service Manager Relationship Specialty Start Date End Date Guerrero Middleton PA-C PCP - General Physician Residential Leasing Agent 02/13/18 documented as of this encounter
--- OUTSIDE RECORDS SUMMARY | 2024-06-06 23:13 | XMS_ITS | Encounter Summary ---
Author Organization [facility] Address [address] [place] [address] Care Team Providers Care Biomedical Engineering Technologist Name Role Phone Guerrero Middleton PA-C Primary Care Provide r Reason for Visit * Reason Onset Date Comments OTHER 11/21/2021 Encounter Details Date Type Department Care Team (Late st Contact Info) Description 11/21/2021 Telephone [facility] Oncology [address] [place] [address] Nicole Rosas MD [address] [place] [address] OTHER Social History Tobacco Use [...] on file Legal Sex Female 6:07 AM DIESEL ENGINEER Gender Identity Not on file Sexual [...] [facility] - [facility] [address] [place] [address] Marlys Mayer MD [address] [place] [address] documented as of this encounter Visit Diagnoses Not on filedocumented in this encounter Additional Health Concerns Infection Onset Date Last Indicated Resolved Time R/O GI Pathogen 09/19/2023 09/19/2023 09/21/2023 7 :33 AM CDT documented as of this encounter Care Teams Biomedical Engineering Technologist Relationship Specialty Start Date End Date Guerrero Middleton PA-C PCP - General Physician Furnace Helper 02/13/18 documented as of this encounter
--- OUTSIDE RECORDS SUMMARY | 2024-06-06 23:13 | XMS_ITS | Encounter Summary ---
Author Organization [facility] Address [address] [place] [address] Care Team Providers Care Facility Rehab Director Name Role Phone Guerrero Middleton PA-C Primary Care Provide r Reason for Visit * Reason Onset Date Comments Bard Port flush 11/16/2021 Attempted to patel ch pt due to needing bard port flushes Encounter Details Date Type Department Care Team (Late st Contact Info) Description 11/16/2021 Telephone [facility] Oncology [address] [place] [address] Nicole Rosas MD [address] [place] [address] [place] Port flush (Attempted to [...] file Legal Sex Female 6:07 AM EGG PRODUCER Gender Identity Not on file Sexual Orientation [...] [facility] [address] [place] [address] Marlys Mayer MD [address] [place] [address] documented as of this encounter Visit Diagnoses Not on filedocumented in this encounter Additional Health Concerns Infection Onset Date Last Indicated Resolved Time R/O GI Pathogen 09/19/2023 09/19/2023 09/21/2023 7 :33 AM CDT documented as of this encounter Care Teams Facility Rehab Director Relationship Specialty Start Date End Date Guerrero Middleton PA-C PCP - General Physician Glove Presser 02/13/18 documented as of this encounter
--- OUTSIDE RECORDS SUMMARY | 2024-06-06 23:13 | XMS_ITS | Referral Summary ---
Author Organization [facility] Address [address] [place] [address] Care Team Providers Care Cio Name Role Phone Mauri Jaime MD Primary Care Provider [phone] Guerrero Middleton PA Unavailable [phone] Allergies Active Allergy Reactions Criticality Noted Date [...] tablet TAKE 1 TABLET BY MOUTH EVERY POLITICAL CONSULTANT 022 Active fenofibrate (TRIGLIDE) 160 mg tablet [...] on file Legal Sex Female 5:05 AM HOLLOW HANDLE KNIFE ASSEMBLER Gender Identity Not on file Sexual Orientation Not on file Last Filed Vital Signs Vital Sign Reading Time Taken Comments Blood Pressure 101/62 06/05/2023 11:38 AM HOLLOW HANDLE KNIFE ASSEMBLER Pulse 76 06/05/2023 11:38 AM HOLLOW HANDLE KNIFE ASSEMBLER Temperature 36.4 C (97.5 F) 06/05/2023 10:35 AM HOLLOW HANDLE KNIFE ASSEMBLER Respiratory Rate 22 06/05/2023 11:38 AM HOLLOW HANDLE KNIFE ASSEMBLER Oxygen Saturation 94% 06/05/2023 11:38 AM HOLLOW HANDLE KNIFE ASSEMBLER Inhaled Oxygen Concentration - - Weight 81.6 kg (180 lb) 06/05/2023 8:58 AM HOLLOW HANDLE KNIFE ASSEMBLER Height 165.1 cm (5' 5 ) 06/05/2023 8:58 AM HOLLOW HANDLE KNIFE ASSEMBLER Body Mass Index 29.95 06/05/2023 8:58 AM HOLLOW HANDLE KNIFE ASSEMBLER Plan of Treatment Not on file Insurance [facility] [facility] [employer] Care Teams Cio Relationship Specialty Start Date End Date Mauri Jaime MD [address] [place] [address] PCP - General Internal Medicine 05/28/23 Guerrero Middleton PA [address] [place] [address] 05/28/23
--- OUTSIDE RECORDS SUMMARY | 2024-06-06 23:13 | XMS_ITS | Encounter Summary ---
Author Organization [facility] Address [address] [place] [address] Care Team Providers Care Pediatric Clinical Dietician Name Role Phone Guerrero Middleton PA-C Primary Care Provide r Encounter Details Date Type Department Care Team (Late st Contact Info) Description 10/13/2021 Telephone [facility] Oncology [address] [place] [address] Phoenix Riddle MD [address] [facility] [place] [address] Social History Tobacco Use Types [...] on file Legal Sex Female 6:07 AM PIG CASTER Gender Identity Not on file Sexual Orientation [...] [facility] - Same[address] [place] [address] Marlys Mayer MD [address] [place] [address] documented as of this encounter Visit Diagnoses Not on filedocumented in this encounter Additional Health Concerns Infection Onset Date Last Indicated Resolved Time R/O GI Pathogen 09/19/2023 09/19/2023 09/21/2023 7 :33 AM CDT documented as of this encounter Care Teams Pediatric Clinical Dietician Relationship Specialty Start Date End Date Guerrero Middleton PA-C PCP - General Physician Events Associate 02/13/18 documented as of this encounter
--- OUTSIDE RECORDS SUMMARY | 2024-06-06 23:13 | XMS_ITS | Encounter Summary ---
Author Organization [facility] Address 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 Gender Identity Not on file Sexual Orientation [...] [facility] [address] [place] [address] Marlys Mayer MD [address] [place] [address] documented as of this encounter Visit Diagnoses Not on filedocumented in this encounter Additional Health Concerns Infection Onset Date Last Indicated Resolved Time R/O GI Pathogen 09/19/2023 09/19/2023 09/21/2023 7 :33 AM CDT documented as of this encounter Care Teams Tobacco Grader Relationship Specialty Start Date End Date Guerrero Middleton PA-C PCP - General Physician Solar Installation Helper 02/13/18 documented as of this encounter
--- OUTSIDE RECORDS SUMMARY | 2024-06-06 23:13 | XMS_ITS | Encounter Summary ---
Author Organization [facility] Address 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 Gender Identity Not on file Sexual [...] [facility] - [facility] [address] [place] [address] Marlys Mayer MD [address] [place] [address] documented as of this encounter Visit Diagnoses Not on filedocumented in this encounter Additional Health Concerns Infection Onset Date Last Indicated Resolved Time R/O GI Pathogen 09/19/2023 09/19/2023 09/21/2023 7 :33 AM CDT documented as of this encounter Care Teams Rotating Field Assembler Relationship Specialty Start Date End Date Guerrero Middleton PA-C PCP - General Physician Tow Truck Driver 02/13/18 documented as of this encounter
--- OUTSIDE RECORDS SUMMARY | 2024-06-06 23:13 | XMS_ITS | Encounter Summary ---
Author Organization [facility] Address 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 Gender Identity Not on file Sexual [...] [place] [facility] - [place] [address] [place] [address] Marlys Mayer MD [address] [place] [address] documented as of this encounter Visit Diagnoses Not on filedocumented in this encounter Additional Health Concerns Infection Onset Date Last Indicated Resolved Time R/O GI Pathogen 09/19/2023 09/19/2023 09/21/2023 7 :33 AM CDT documented as of this encounter Care Teams Special Education Itinerant Teacher Relationship Specialty Start Date End Date Guerrero Middleton PA-C PCP - General Physician Occupational Health And Safety Adviser 02/13/18 documented as of this encounter
--- OUTSIDE RECORDS SUMMARY | 2024-06-06 23:14 | XMS_ITS | Clinical Summary ---
Author Organization [facility] Address [address] [address] Phone Care Team Providers Care Medical Services Coordinator Name Role Phone Jose G Palmer MD Unavailable [phone] Guerrero Middleton Primary Care Provider Social History [...] to complete this topic Insurance Care Teams Medical Services Coordinator Relationship Specialty Start Date End Date Guerrero Middleton PAC [address] [place] [address] PCP - General Physician Taxonomist 12/10/16 Jose G Palmer MD Consulting Physician Gastroenterology 12/10/16
--- OUTSIDE RECORDS SUMMARY | 2024-06-06 23:14 | XMS_ITS | Clinical Summary ---
Author Organization [facility] Address [address] [place] [address] Phone Care Team Providers Care Art Dealer Name Role Phone Guerrero Middleton PA-C [...] 48h post LHC 4 Active Blood-Glucose Sensor ([employer] G7 Sensor) Device 4 Active buPROPion HCL [...] be different from the original. Marlys Mayer MD--Animal Attendants And Trainers ([facility] @ ) Problem Noted [...] Data STL ABSTRACTION Provider, Abstract 06/02/2024 Abstract [facility] V[facility] At [address] [place] [address] Marlys Mayer MD 06/02/2024 Telephone [facility] V[facility] At [address] [place] [address] Marlys Mayer MD Medical Records 05/27/2024 External Device Data STL ABSTRACTION Provider, Abstract 05/12/2024 External Device Data STL ABSTRACTION Provider, Abstract 04/21/2024 External Device Data STL ABSTRACTION Provider, Abstract 04/20/2024 3:00 PM JOB HAND Office Visit [facility] V[facility] - [facility] [address] [place] [address] Marlys Mayer MD 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 (Primary Dx); Type 1 diabetes mellitus without complication (CMS/HCC); Chylomicronemia syndrome; Chronic recurrent pancreatitis ([facility]/HCC) 04/14/2024 Abstract [facility] V[facility] At [address] [place] [address] Marlys Mayer MD 03/23/2024 Telephone [facility] V[facility] At [address] [place] [address] Marlys Mayer MD Medication Question from Last [...] on file Legal Sex Female 6:07 AM JOB HAND Gender Identity Not on file Sexual Orientation Not on file Occupation Industry Job Start Date Job End Date Not on file Not on file Not on file Not on file Last Filed Vital Signs Vital Sign Reading Time Taken Comments Blood Pressure 112/70 04/20/2024 3:12 PM JOB HAND Pulse 103 04/20/2024 3:12 PM JOB HAND Temperature 36.5 C (97.7 F) 11/29/2023 10:58 AM CDT Respiratory Rate 21 11/29/2023 6:15 PM CDT Oxygen Saturation 96% 04/20/2024 3:12 PM JOB HAND Inhaled Oxygen Concentration - - Weight 86.6 kg (191 lb) 04/20/2024 3:12 PM JOB HAND Height 165.1 cm (5' 5 ) 04/20/2024 3:12 PM JOB HAND Body Mass Index 31.78 04/20/2024 3:12 PM JOB HAND Plan of Treatment Upcoming Encounters Date Type Department Care Team (Late st Contact Info) Description 09/14/2024 3:00 PM CDT Office Visit [facility] [address] [place] [address] Marlys Mayer MD [address] [place] [address] Health Maintenance Due Date Last [...] history exists Medical Devices Implanted Type Area Silverware Etcher Device Identifier Shelf Expiration Date Model / Serial / Lot Cath Hemodlys Glidespath 23cm [id number] Implanted:Qty : 1 on 04/10/2018 by Kayla Sheffield MD Catheter CR BARD[employer] [id number] 08/27/2019 [id number] / / [id number] Description:14.5fr x 23cm; R IJ Port-10/29/2018 Implanted:Qty : 2 on 10/29/2018 by Laverne Willoughby MD Explanted:Qty : 1 on 02/18/2019 by Michael Powell MD Port Right: Chest Wall CR BARD- ACCESS SYS 07/28/2019 / / [id number] Description:two 9.6fr fower flow apheresis ports placed by Dr. Willoughby Port- 0 Implanted:Qty : 1 on 05/11/2019 by Alfa Forrest MD Port Left: Chest Wall CR BARD- ACCESS SYS 08/26/2020 / / [id number] Stent Synergy Xd 4.0x12mm Evrlms Elut [id number] - [id number] Implanted:Qty : 1 on 11/29/2023 by Miguel Lewis MD at [facility] Stent N/A: Coronary [employer] [id number] 03/19/2024 [id number] / / [id number] Procedures Procedure Name Priority Date/Time Associated Diagnosis Comments LDL CHOLESTEROL, DIRECT Stat 09/19/2023 12:59 AM CDT HEMOGLOBIN A1C Routine 09/18/2023 10:18 PM CDT from Last 3 Months or Most Recently Relevant to Health Maintenance Results * LDL CHOLESTEROL, DIRECT (09/19/2023 12:59 AM CDT) LDL CHOLESTEROL, DIRECT 47 <100 mg/dL 09/19/2023 5:52 AM CDT [facility] [employer] [facility] Blood Venipuncture / Unknown 09/19/2023 12:59 AM CDT 09/19/2023 1:09 AM CDT Narrative [facility] [employer] [facility] - 09/19/2023 5:52 AM CDT LDL [...] [place] MD CHEMISTRY ORDERABLES Fin al Result [facility] [employer] [facility]# [id number] [address] [facility] [place] [address] * (ABNORMAL) HEMOGLOBIN A1C (09/18/2023 10:18 PM CDT) HEMOGLOBIN A1C 9.7(H) <5.7 % 09/19/2023 10:59 AM CDT [facility] [employer] [facility] EST. AVG GLUCOSE, A1C 232 mg/dL 09/19/2023 10:59 AM CDT [facility] [employer] [facility] Blood Venipuncture / Unknown 09/18/2023 10:18 PM CDT 09/18/2023 10:26 PM CDT Narrative [facility] - 09/19/2023 10:59 AM CDT HGB A1C INTERPRETATION NORMAL: <5.7% PRE-DIABETES: 5.7 - 6.4% DIABETES: 6.5% OR GREATER us Herlinda Mederos DO CHEMISTRY ORDERABLES Final Resul t [facility] CLIA# [id number] [address] [place] [address] from Last 3 Months or Most Recently Relevant to Health Maintenance Insurance [employer] [facility] RX A[employer] Medicare Part D RX [employer] PLANS (INTERNAL) [facility] RX [employer] PLANS (INTERNAL) [facility] [employer] PPO MCR Advance Directives For more information, please contact: [phone] * Full Code (Latest Code Status on [...] 12:11 AM 01/02/2021 4:26 PM Care Teams Art Dealer Relationship Specialty Start Date End Date Guerrero Middleton PA-C PCP - General Physician Second Language Tutor 02/13/18
--- NOTE | 2024-06-06 23:32 | ECG_ITS ---
Test Date: 2024-06-07 00:14:43 Measurements Intervals [place] Rate: 93 P: 56 MT: 164 QRS: 75 QRSD: 92 T: 0 QT: 380 QTc: 475 Interpretive Statements SINUS RHYTHM NONSPECIFIC ST & T-WAVE ABNORMALITY- ANTEROLAT/INF LEADS BASELINE ARTIFACT- I, II, III, AVR, AVL, AVF BORDERLINE ECG Compared to ECG 04/02/2024 14:09:47 NO SIGNIFICANT CHANGE Electronically Signed On 06-07-2024 08:15:11 PROJECT BUYER by Baron Bowers D.O.
--- NOTE | 2024-06-06 23:35 | ED_ITS ---
HPI - Abdominal Pain General Chief Complaint: Abdominal Pain <DARI Lamar Last Filed: 06/07/24 02:45> Stated Complaint: pancreatitis <DARI Lamar Last Filed: 06/07/24 02:45> Time Seen by Provider: 06/06/24 23:08 <DARI Lamar Last Filed: 06/07/24 02:45> Source: patient <DARI Lamar Last Filed: 06/07/24 02:45> Mode of arrival: ambulatory <DARI Lamar Last Filed: 06/07/24 02:45> Limitations: no limitations <DARI Lamar Last Filed: 06/07/24 02:45> History of Present Illness HPI narrative: Patient is a 48 y/o female who presents to the ED with c/o upper ABD pain. Patient has hx of CAD, chronic pancreatitis, Chylomicronemia syndrome, hypertriglyceridemia, insulin-dependent diabetes, lipoprotein deficiency. She is well known to our facility, often requires plasmapheresis and insulin drip to control triglycerides. Follows with nephrology here. Patient reports she had her triglyceride level drawn on Saturday and it was mildly elevated to 800. She did not receive a plasmapheresis treatment at that time. States she then received a steroid injection in her L shoulder for bursitis/tendonitis on Saturday but Dr. Oakley. Has had worsening pain in her upper abdomen since then. States this feels typical of her previous pancreatitis episodes. Has had nausea, vomiting. Has not taken anything for pain. Does also report diarrhea. Denies rectal bleeding or melena. Denies fevers. Denies chest pain or shortness of breath. <DARI Lamar Last Filed: 06/07/24 02:45> Related Data Home Medications: Home Medications ?Medication ?Instructions ?Recorded ?Confirmed ?Last Taken ?Type levothyroxine 200 mcg tablet 200 mcg PO DAILY 07/21/23 06/07/24 05/01/24 History biabiz-ywwcxgen-cldwinn 2 cap PO TIDWMEAL 07/22/23 06/07/24 05/01/24 History 36,000-114,000-180,000 unit capsule,delay rel (Creon) citalopram 40 mg tablet 40 mg PO DAILY 08/31/23 06/07/24 05/01/24 History bupropion HCl 150 mg tablet,12 hr 150 mg PO HS 10/09/23 06/07/24 04/30/24 History sustained-release insulin aspart U-100 100 unit/mL See Rx Instructions .Route .COMPLEX 03/31/24 06/07/24 05/01/24 History subcutaneous solution (Novolog U-100 Insulin aspart) metoprolol succinate 25 mg 12.5 mg PO DAILY 03/31/24 06/07/24 05/01/24 History tablet,extended release 24 hr metoclopramide HCl 5 mg tablet 5 mg PO TIDWM nausea and vomiting 06/07/24 06/07/24 Unknown History <Susan Diaz PA-C - Last Filed: 06/07/24 02:45> Allergies/Adverse Reactions: Allergies Allergy/AdvReac Type Severity Reaction Status Date / Time adhesive tape Allergy Mild Rash Verified 06/06/24 22:47 [place] pepper (green pepper) Allergy Unknown Hives Verified 06/06/24 22:47 sucralose (From Splenda Allergy Migraine Verified 06/06/24 22:47 (sucralose)) Artificial Sweetners AdvReac Migraine Uncoded 05/15/24 12:38 <Susan Diaz PA-C - Last Filed: 06/07/24 02:45> Review of Systems 2 Review of Systems: All systems reviewed & are unremarkable except as noted in HPI. 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 Allergic rhinitis Insulin dependent diabetes mellitus Chronic pancreatitis (~09/02/23) Anxiety Hypertriglyceridemia Port-A-Cath in place Lipoprotein deficiency Chylomicronemia syndrome Thyroid disorder Hyperlipemia Headache <Susan Diaz PA-C - Last Filed: 06/07/24 02:45> Surgical History Surgical History: Surgical History History of wisdom tooth extraction History of tubal ligation History of partial hysterectomy History of endometrial ablation History of appendectomy History of loop electrical excision procedure (LEEP) History of exploratory laparotomy History of dilatation and curettage History of conization of cervix History of tonsillectomy <Susan Diaz PA-C - Last Filed: 06/07/24 02:45> Family History Family History: Family History Father Alcohol abuse Hypercholesteremia Hypertension Family history of alcoholism Family history of cardiovascular disease Diabetes mellitus Mother Hypercholesteremia Hypothyroid Cerebrovascular accident Family history of cardiovascular disease Diabetes mellitus Grandparent Skin cancer Colon cancer Heart disease Hypothyroid Cerebrovascular accident Sibling Autoimmune disorder Hypothyroid Kidney disorder Hypertension Diabetes mellitus Other Family history of kidney disease <Susan Diaz PA-C - Last Filed: 06/07/24 02:45> Social History Social History: Social History Social History: She smokes up to 1ppd since age 16yo. No alcohol or drug use. She has dog and a cat at home. Surrogate medical decision maker: José Miguel Bryansergio, spouse. Code status: Full Smoking packs per day: 1 Smoking cigarettes per day: 20.0 Years smoked: 32 Smoking pack-years: 32.00 Smoking status: Current every day smoker Second hand tobacco smoke exposure: No Alcohol intake: never Drinks per week: 0 Substance use: never Substance use type: does not use Do You Feel Safe in your Home?: Yes Lack of Transportation: No Lack of Food: Never True Current Housing: I Have Housing Concerned About Future Housing: No Difficulty Paying Gas/Electric Bills: No Difficulty Paying for Meds: No Currently Unemployed: No Education: Associate Degree Difficulty w/ Childcare or Family Care: No Living arrangements: with family Occupation/Education: retired 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 HEAD: Normocephalic, atraumatic. RESPIRATORY: Airway patent, respirations nonlabored. Clear to auscultation bilaterally, no rales, rhonchi, wheezing. CARDIOVASCULAR: Regular rate and rhythm without murmurs, rubs, or gallops. ABDOMINAL: Soft, diffuse tenderness throughout abdomen, worst in epigastric region. Nondistended. Normoactive BS. MUSCULOSKELETAL: Moves all extremities. No gross deformities. SKIN: Warm, dry, normal color. NEURO: A&O X3. Speech clear. PSYCHIATRIC: Appropriate mood and affect. Normal interaction. <Susan Diaz PA-C - Last Filed: 06/07/24 02:45> Course SQL CONSULTANT/PA Physician Supervision pA discusses patient with me. She is hyperglycemic. Partial correction of calcium (8.2) given albumin but still mildly low. Patient requires additional analgesia medication while awaiting CT interpretation. There is considerable delay between the time of obtaining CT and STAT RAD interpretation. Patient's blood glucose has been downtrending by nearly 40 each time. I did change the insulin to 0.5U/kg/hr for this reasons. CT interpretation finally performed as below, without acute surgical process. ICU orders placed. <Laure Boston MD - Last Filed: 06/07/24 10:25> Vital Signs Vital signs: Vital Signs Temperature 97.8 F 06/06/24 22:16 Pulse Rate 105 H 06/06/24 22:16 Respiratory Rate 16 06/06/24 22:16 Blood Pressure 137/79 06/06/24 22:16 Pulse Oximetry 99 06/06/24 22:16 Oxygen Delivery Room Air 06/06/24 22:16 Temperature 97.8 F 06/06/24 22:16 Pulse Rate 88 06/07/24 07:41 Respiratory Rate 14 06/07/24 07:41 Blood Pressure 118/80 06/07/24 07:41 Pulse Oximetry 93 06/07/24 10:00 Oxygen Delivery Room Air 06/07/24 10:00 Oxygen Flow Rate 2 06/07/24 07:43 <Susan Diaz PA-C - Last Filed: 06/07/24 02:45> Vital Signs Temperature 97.8 F 06/06/24 22:16 Pulse Rate 105 H 06/06/24 22:16 Respiratory Rate 16 06/06/24 22:16 Blood Pressure 137/79 06/06/24 22:16 Pulse Oximetry 99 06/06/24 22:16 Oxygen Delivery Room Air 06/06/24 22:16 Temperature 97.8 F 06/06/24 22:16 Pulse Rate 88 06/07/24 07:41 Respiratory Rate 14 06/07/24 07:41 Blood Pressure 118/80 06/07/24 07:41 Pulse Oximetry 93 06/07/24 10:00 Oxygen Delivery Room Air 06/07/24 10:00 Oxygen Flow Rate 2 06/07/24 07:43 <Laure Boston MD - Last Filed: 06/07/24 10:25> MDM - Abdominal Pain MDM Narrative Medical decision making narrative: Patient presented to ED with recurrent episode of upper abdominal pain, nausea, vomiting. History of multiple similar previous episodes. Well known to our facility. Hx of chronic pancreatitis, Chylomicronemia syndrome, hypertriglyceridemia, insulin-dependent diabetes, lipoprotein deficiency. Vital signs are stable upon arrival. Mildly tachycardic. Likely pain related. Will order pain and nausea medicine. Labs pending. Having difficulty due to lipemic nature of patient's blood. Phlebotomy has been notified. CBC w/o leukocytosis. Stable anemia. CMP partially resulted. Kidney function is stable. Calcium slightly low. Stable LFTs. BG 212. Mg low at 1.3. IV replacement given. UA without evidence of infection. EKG w/o ischemic changes. Trop undetectable. Unable to result lipase or triglyceride levels due to lipemic nature of blood. Per records, when this has occurred in the past, this correlated to triglyceride levels greater than 2500. Discussed case with Dr. Castellano, cargoman, agreed w/ plan for insulin gtt and admission to ICU. Will also start D5 half- normal saline to prevent hypoglycemia. Will have nephrology consulted for likely plasmapheresis. Patient last received plasmapheresis during admission in early April here. CT abd/pelvis obtained and pending. I did discuss case with Dr. Newsome, hospitalist, will wait for official stat rad CT results before placing admission orders. Care signed out to Dr. Boston at shift change. <Susan Diaz PA-C - Last Filed: 06/07/24 02:45> Medical Records Attestation: I reviewed the patient's medical records. <Susan Diaz PA-C - Last Filed: 06/07/24 02:45> Lab Data Attestation: I reviewed the patient's lab results. <Susan Diaz PA-C - Last Filed: 06/07/24 02:45> Result diagrams: 06/07/24 09:19 06/07/24 00:28 <Susan Diaz PA-C - Last Filed: 06/07/24 02:45> Labs: Lab Results 06/06/24 06/06/24 06/07/24 Range/Units 00:28 23:43 00:28 WBC 8.8 (4.5-10.0) K/mm3 RBC 3.71 L (4.2-5.4) M/mm3 Hgb 10.7 L (12.0-15.0) g/dL Hct 33.6 L (37.0-47.0) % MCV 90.6 (80-100) fl MCH 28.8 (26-34) pg MCHC 31.8 L (32-36) g/dl RDW 15.3 H (11.5-14.5) % Plt Count 344 (150-375) k/mm3 MPV 9.6 (7.4-10.4) fl Immature Gran % (Auto) 0.8 H (0-0.5) % Neut % (Auto) 61.4 (45.5-73.1) % Lymph % (Auto) 31.4 (18.3-44.2) % [place] % (Auto) 5.2 (2.6-8.5) % Eos % (Auto) 0.9 (0-4.4) % Baso % (Auto) 0.3 (0.2-1.2) % Lymph # (Auto) 2.76 (0.9-3.2) K/mm3 [place] # (Auto) 0.5 (0.1-0.6) K/mm3 Eos # (Auto) 0.1 (0-0.3) K/mm3 Baso # (Auto) 0.0 (0.0-0.1) K/mm3 Abs Immat Gran (auto) 0.07 H (0.00-0.031) K/mm3 Absolute Neuts (auto) 5.4 (1.3-6.7) K/mm3 Absolute Nucleated RBC 0.030 H (0.0-0.012) K/mm3 Nucleated RBC % 0.3 H (0.0-0.2) % Sodium 135 L (137-145) mmol/L Potassium 3.8 (3.4-5.0) mmol/L Chloride 104 (98-107) mmol/L Carbon Dioxide TNP Anion Gap TNP BUN 13 (7-17) mg/dL Creatinine 0.54 L (0.7-1.0) mg/dL Estim Creat Clear Calc 115 ml/min Estimated GFR > 60 (59 - ) Glucose 212 H (65-110) mg/dL POC Capillary Glucose (65-105) mg/dl Calcium 7.7 L (8.4-10.2) mg/dL Magnesium 1.3 L (1.6-2.3) mg/dL Total Bilirubin 0.5 (0.2-1.3) mg/dL AST 19 (14-36) U/L ALT 14 (6-35) U/L Alkaline Phosphatase 93 (38-126) U/L Troponin I < 0.012 (0.000-0.034) ng/mL Total Protein 7.0 (6.3-8.2) g/dL Albumin 3.4 L (3.5-5.1) g/dL Triglycerides TNP Lipase TNP Urine Color Yellow (Yellow) Urine Appearance Clear (Clear) Urine pH 6.0 (5.0-9.0) Ur Specific [place] 1.027 (1.001-1.035) Urine Protein Negative (Negative) mg/dL Urine Glucose (UA) 3+ H (Negative) mg/dL Urine Ketones Trace H (Negative) mg/dL Ur Blood (Man) Negative (Negative) Urine Nitrate Negative (Negative) Urine Bilirubin Negative (Negative) Urine Urobilinogen 0.2 (<2.0) mg/dL Leukocyte Esterase Rfl Negative (Negative) STEPHEN/UL 06/07/24 06/07/24 06/07/24 Range/Units 03:24 04:15 04:59 WBC (4.5-10.0) K/mm3 RBC (4.2-5.4) M/mm3 Hgb (12.0-15.0) g/dL Hct (37.0-47.0) % MCV (80-100) fl MCH (26-34) pg MCHC (32-36) g/dl RDW (11.5-14.5) % Plt Count (150-375) k/mm3 MPV (7.4-10.4) fl Immature Gran % (Auto) (0-0.5) % Neut % (Auto) (45.5-73.1) % Lymph % (Auto) (18.3-44.2) % [place] % (Auto) (2.6-8.5) % Eos % (Auto) (0-4.4) % Baso % (Auto) (0.2-1.2) % Lymph # (Auto) (0.9-3.2) K/mm3 [place] # (Auto) (0.1-0.6) K/mm3 Eos # (Auto) (0-0.3) K/mm3 Baso # (Auto) (0.0-0.1) K/mm3 Abs Immat Gran (auto) (0.00-0.031) K/mm3 Absolute Neuts (auto) (1.3-6.7) K/mm3 Absolute Nucleated RBC (0.0-0.012) K/mm3 Nucleated RBC % (0.0-0.2) % Sodium (137-145) mmol/L Potassium (3.4-5.0) mmol/L Chloride (98-107) mmol/L Carbon Dioxide Anion Gap BUN (7-17) mg/dL Creatinine (0.7-1.0) mg/dL Estim Creat Clear Calc ml/min Estimated GFR (59 - ) Glucose (65-110) mg/dL POC Capillary Glucose 230 H 222 H 189 H (65-105) mg/dl Calcium (8.4-10.2) mg/dL Magnesium (1.6-2.3) mg/dL Total Bilirubin (0.2-1.3) mg/dL AST (14-36) U/L ALT (6-35) U/L Alkaline Phosphatase (38-126) U/L Troponin I (0.000-0.034) ng/mL Total Protein (6.3-8.2) g/dL Albumin (3.5-5.1) g/dL Triglycerides Lipase Urine Color (Yellow) Urine Appearance (Clear) Urine pH (5.0-9.0) Ur Specific [place] (1.001-1.035) Urine Protein (Negative) mg/dL Urine Glucose (UA) (Negative) mg/dL Urine Ketones (Negative) mg/dL Ur Blood (Man) (Negative) Urine Nitrate (Negative) Urine Bilirubin (Negative) Urine Urobilinogen (<2.0) mg/dL Leukocyte Esterase Rfl (Negative) STEPHEN/UL 06/07/24 Range/Units 05:43 WBC (4.5-10.0) K/mm3 RBC (4.2-5.4) M/mm3 Hgb (12.0-15.0) g/dL Hct (37.0-47.0) % MCV (80-100) fl MCH (26-34) pg MCHC (32-36) g/dl RDW (11.5-14.5) % Plt Count (150-375) k/mm3 MPV (7.4-10.4) fl Immature Gran % (Auto) (0-0.5) % Neut % (Auto) (45.5-73.1) % Lymph % (Auto) (18.3-44.2) % [place] % (Auto) (2.6-8.5) % Eos % (Auto) (0-4.4) % Baso % (Auto) (0.2-1.2) % Lymph # (Auto) (0.9-3.2) K/mm3 [place] # (Auto) (0.1-0.6) K/mm3 Eos # (Auto) (0-0.3) K/mm3 Baso # (Auto) (0.0-0.1) K/mm3 Abs Immat Gran (auto) (0.00-0.031) K/mm3 Absolute Neuts (auto) (1.3-6.7) K/mm3 Absolute Nucleated RBC (0.0-0.012) K/mm3 Nucleated RBC % (0.0-0.2) % Sodium (137-145) mmol/L Potassium (3.4-5.0) mmol/L Chloride (98-107) mmol/L Carbon Dioxide Anion Gap BUN (7-17) mg/dL Creatinine (0.7-1.0) mg/dL Estim Creat Clear Calc ml/min Estimated GFR (59 - ) Glucose (65-110) mg/dL POC Capillary Glucose 149 H (65-105) mg/dl Calcium (8.4-10.2) mg/dL Magnesium (1.6-2.3) mg/dL Total Bilirubin (0.2-1.3) mg/dL AST (14-36) U/L ALT (6-35) U/L Alkaline Phosphatase (38-126) U/L Troponin I (0.000-0.034) ng/mL Total Protein (6.3-8.2) g/dL Albumin (3.5-5.1) g/dL Triglycerides Lipase Urine Color (Yellow) Urine Appearance (Clear) Urine pH (5.0-9.0) Ur Specific [place] (1.001-1.035) Urine Protein (Negative) mg/dL Urine Glucose (UA) (Negative) mg/dL Urine Ketones (Negative) mg/dL Ur Blood (Man) (Negative) Urine Nitrate (Negative) Urine Bilirubin (Negative) Urine Urobilinogen (<2.0) mg/dL Leukocyte Esterase Rfl (Negative) STEPHEN/UL <Susan Diaz PA-C - Last Filed: 06/07/24 02:45> Lab Results 06/06/24 06/06/24 06/07/24 Range/Units 00:28 23:43 00:28 WBC 8.8 (4.5-10.0) K/mm3 RBC 3.71 L (4.2-5.4) M/mm3 Hgb 10.7 L (12.0-15.0) g/dL Hct 33.6 L (37.0-47.0) % MCV 90.6 (80-100) fl MCH 28.8 (26-34) pg MCHC 31.8 L (32-36) g/dl RDW 15.3 H (11.5-14.5) % Plt Count 344 (150-375) k/mm3 MPV 9.6 (7.4-10.4) fl Immature Gran % (Auto) 0.8 H (0-0.5) % Neut % (Auto) 61.4 (45.5-73.1) % Lymph % (Auto) 31.4 (18.3-44.2) % [place] % (Auto) 5.2 (2.6-8.5) % Eos % (Auto) 0.9 (0-4.4) % Baso % (Auto) 0.3 (0.2-1.2) % Lymph # (Auto) 2.76 (0.9-3.2) K/mm3 [place] # (Auto) 0.5 (0.1-0.6) K/mm3 Eos # (Auto) 0.1 (0-0.3) K/mm3 Baso # (Auto) 0.0 (0.0-0.1) K/mm3 Abs Immat Gran (auto) 0.07 H (0.00-0.031) K/mm3 Absolute Neuts (auto) 5.4 (1.3-6.7) K/mm3 Absolute Nucleated RBC 0.030 H (0.0-0.012) K/mm3 Nucleated RBC % 0.3 H (0.0-0.2) % Sodium 135 L (137-145) mmol/L Potassium 3.8 (3.4-5.0) mmol/L Chloride 104 (98-107) mmol/L Carbon Dioxide TNP Anion Gap TNP BUN 13 (7-17) mg/dL Creatinine 0.54 L (0.7-1.0) mg/dL Estim Creat Clear Calc 115 ml/min Estimated GFR > 60 (59 - ) Glucose 212 H (65-110) mg/dL POC Capillary Glucose (65-105) mg/dl Calcium 7.7 L (8.4-10.2) mg/dL Magnesium 1.3 L (1.6-2.3) mg/dL Total Bilirubin 0.5 (0.2-1.3) mg/dL AST 19 (14-36) U/L ALT 14 (6-35) U/L Alkaline Phosphatase 93 (38-126) U/L Troponin I < 0.012 (0.000-0.034) ng/mL Total Protein 7.0 (6.3-8.2) g/dL Albumin 3.4 L (3.5-5.1) g/dL Triglycerides TNP Lipase TNP Urine Color Yellow (Yellow) Urine Appearance Clear (Clear) Urine pH 6.0 (5.0-9.0) Ur Specific [place] 1.027 (1.001-1.035) Urine Protein Negative (Negative) mg/dL Urine Glucose (UA) 3+ H (Negative) mg/dL Urine Ketones Trace H (Negative) mg/dL Ur Blood (Man) Negative (Negative) Urine Nitrate Negative (Negative) Urine Bilirubin Negative (Negative) Urine Urobilinogen 0.2 (<2.0) mg/dL Leukocyte Esterase Rfl Negative (Negative) STEPHEN/UL 06/07/24 06/07/24 06/07/24 Range/Units 03:24 04:15 04:59 WBC (4.5-10.0) K/mm3 RBC (4.2-5.4) M/mm3 Hgb (12.0-15.0) g/dL Hct (37.0-47.0) % MCV (80-100) fl MCH (26-34) pg MCHC (32-36) g/dl RDW (11.5-14.5) % Plt Count (150-375) k/mm3 MPV (7.4-10.4) fl Immature Gran % (Auto) (0-0.5) % Neut % (Auto) (45.5-73.1) % Lymph % (Auto) (18.3-44.2) % [place] % (Auto) (2.6-8.5) % Eos % (Auto) (0-4.4) % Baso % (Auto) (0.2-1.2) % Lymph # (Auto) (0.9-3.2) K/mm3 [place] # (Auto) (0.1-0.6) K/mm3 Eos # (Auto) (0-0.3) K/mm3 Baso # (Auto) (0.0-0.1) K/mm3 Abs Immat Gran (auto) (0.00-0.031) K/mm3 Absolute Neuts (auto) (1.3-6.7) K/mm3 Absolute Nucleated RBC (0.0-0.012) K/mm3 Nucleated RBC % (0.0-0.2) % Sodium (137-145) mmol/L Potassium (3.4-5.0) mmol/L Chloride (98-107) mmol/L Carbon Dioxide Anion Gap BUN (7-17) mg/dL Creatinine (0.7-1.0) mg/dL Estim Creat Clear Calc ml/min Estimated GFR (59 - ) Glucose (65-110) mg/dL POC Capillary Glucose 230 H 222 H 189 H (65-105) mg/dl Calcium (8.4-10.2) mg/dL Magnesium (1.6-2.3) mg/dL Total Bilirubin (0.2-1.3) mg/dL AST (14-36) U/L ALT (6-35) U/L Alkaline Phosphatase (38-126) U/L Troponin I (0.000-0.034) ng/mL Total Protein (6.3-8.2) g/dL Albumin (3.5-5.1) g/dL Triglycerides Lipase Urine Color (Yellow) Urine Appearance (Clear) Urine pH (5.0-9.0) Ur Specific [place] (1.001-1.035) Urine Protein (Negative) mg/dL Urine Glucose (UA) (Negative) mg/dL Urine Ketones (Negative) mg/dL Ur Blood (Man) (Negative) Urine Nitrate (Negative) Urine Bilirubin (Negative) Urine Urobilinogen (<2.0) mg/dL Leukocyte Esterase Rfl (Negative) STEPHEN/UL 06/07/24 Range/Units 05:43 WBC (4.5-10.0) K/mm3 RBC (4.2-5.4) M/mm3 Hgb (12.0-15.0) g/dL Hct (37.0-47.0) % MCV (80-100) fl MCH (26-34) pg MCHC (32-36) g/dl RDW (11.5-14.5) % Plt Count (150-375) k/mm3 MPV (7.4-10.4) fl Immature Gran % (Auto) (0-0.5) % Neut % (Auto) (45.5-73.1) % Lymph % (Auto) (18.3-44.2) % [place] % (Auto) (2.6-8.5) % Eos % (Auto) (0-4.4) % Baso % (Auto) (0.2-1.2) % Lymph # (Auto) (0.9-3.2) K/mm3 [place] # (Auto) (0.1-0.6) K/mm3 Eos # (Auto) (0-0.3) K/mm3 Baso # (Auto) (0.0-0.1) K/mm3 Abs Immat Gran (auto) (0.00-0.031) K/mm3 Absolute Neuts (auto) (1.3-6.7) K/mm3 Absolute Nucleated RBC (0.0-0.012) K/mm3 Nucleated RBC % (0.0-0.2) % Sodium (137-145) mmol/L Potassium (3.4-5.0) mmol/L Chloride (98-107) mmol/L Carbon Dioxide Anion Gap BUN (7-17) mg/dL Creatinine (0.7-1.0) mg/dL Estim Creat Clear Calc ml/min Estimated GFR (59 - ) Glucose (65-110) mg/dL POC Capillary Glucose 149 H (65-105) mg/dl Calcium (8.4-10.2) mg/dL Magnesium (1.6-2.3) mg/dL Total Bilirubin (0.2-1.3) mg/dL AST (14-36) U/L ALT (6-35) U/L Alkaline Phosphatase (38-126) U/L Troponin I (0.000-0.034) ng/mL Total Protein (6.3-8.2) g/dL Albumin (3.5-5.1) g/dL Triglycerides Lipase Urine Color (Yellow) Urine Appearance (Clear) Urine pH (5.0-9.0) Ur Specific [place] (1.001-1.035) Urine Protein (Negative) mg/dL Urine Glucose (UA) (Negative) mg/dL Urine Ketones (Negative) mg/dL Ur Blood (Man) (Negative) Urine Nitrate (Negative) Urine Bilirubin (Negative) Urine Urobilinogen (<2.0) mg/dL Leukocyte Esterase Rfl (Negative) STEPHEN/UL <Laure Boston MD - Last Filed: 06/07/24 10:25> Imaging Data Attestation: I personally reviewed and interpreted this imaging study as follows: < Susan Diaz PA-C - Last Filed: 06/07/24 02:45> Radiologist's impression: CT Abd Pelvis with Contrast STat Rad: Nonspecific hepatomegaly with focal fatty infiltration of the falciform ligament. 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 This is nonspecific. No CT evidence of chronic pancreatitis. A small amount of free fluid adjacent to the inferior aspect of the spleen is nonspecific. The remaining solid organs are otherwise unremarkable. No bowel obstruction. No fracture. Mild nodularity of the subcutaneous fat of the lower abdominal wall is likely iatrogenic. No incidental findings. <Laure Boston MD - Last Filed: 06/07/24 10:25> ECG Data EKG #1: Attestation: I personally reviewed and interpreted this ECG as follows: <Susan Diaz PA-C - Last Filed: 06/07/24 02:45> ECG completion date: 06/07/24 <DARI Lamar Last Filed: 06/07/24 02:45> ECG completion time: 00:14 <DARI Lamar Last Filed: 06/07/24 02:45> normal rate (93), sinus rhythm and non-specific ST changes <DARI Lamar Last Filed: 06/07/24 02:45> Discharge Plan Discharge Clinical Impression: Hypertriglyceridemia, Chylomicronemia syndrome, Chronic pancreatitis, Hypomagnesemia, Hyperglycemia, Hypocalcemia, Glucosuria <DARI Lamar Last Filed: 06/07/24 02:45> Patient Disposition: Still a Patient <DARI Lamar Last Filed: 06/07/24 02:45> Condition: Stable <DARI Lamar Last Filed: 06/07/24 02:45>
[2024-06-07] VITALS (44 sets, daily range): BP systolic 102–136; BP diastolic 56–88; PULSE 67–91; RESP 7–20; TEMP 36.2–36.8; O2SAT 91–99; BMI 32.8
[2024-06-07 00:06] LABS: Add Urine Microscopic? NO; Appearance Urine Clear (Clear); Bilirubin Urine Negative (Negative); Blood Urine Negative (Negative); Color Urine Yellow (Yellow); Glucose Urine UA 3+ mg/dL (Negative); Ketones Urine Trace mg/dL (Negative); Leukocyte Esterase Ur Negative LEU/UL (Negative); Nitrate Urine Negative (Negative); Protein Urine Negative (Negative); Specific Grav Ur 1.027 (1.001-1.035); Urobilinogen Urine 0.2 mg/dL (<2.0)
--- NOTE | 2024-06-07 00:13 | PC.NURSE ---
Patient's blood draw repeatedly hemolyzed by lab, that was drawn by this RN and jewelry technician. inspector precision assembly spoke with lab at this time. Phlebotomy now called for blood draw.
--- NOTE | 2024-06-07 00:24 | PC.NURSE ---
Phlebotomy here to draw patient.
[2024-06-07] MEDS: HYDROmorphone HCL INJ (*CRX) 1 MG/ML SYR IV PUSH ×7 (00:53→23:37)
[2024-06-07] MEDS: SODIUM CHLORIDE 0.9% IV 1,000 ML 999 ML IV CONT ×3 (00:53→14:45)
--- NOTE | 2024-06-07 01:19 | PC.NURSE ---
Patient placed on 2L via NC for RA sat of 89% on RA while sleeping after medication administration. PA notified.
[2024-06-07] MEDS: diphenhydrAMINE HCl CAP 25 MG CAPSULE PO (01:26)
[2024-06-07 02:17] LABS: Alanine Aminotransferase 14 U/L (6-35); Albumin Level 3.4 g/dL (3.5-5.1); Alkaline Phosphatase 93 U/L (38-126); Aspartate Amino Transferase 19 U/L (14-36); Bilirubin,Total 0.5 mg/dL (0.2-1.3); Blood Urea Nitrogen 13 mg/dL (7-17); Calcium 7.7 mg/dL (8.4-10.2); Chloride 104 mmol/L (98-107); Estimated CRCL calculation 115 ml/min; Estimated Glomerular Filt Rate > 60; Glucose 212 mg/dL (65-110); Magnesium 1.3 mg/dL (1.6-2.3); Potassium 3.8 mmol/L (3.4-5.0); Sodium 135 mmol/L (137-145); Troponin I < 0.012 ng/mL (0.000-0.034)
[2024-06-07 02:36] LABS: Basophils Percent Auto 0.3 % (0.2-1.2); Eosinophils Absolute Auto 0.1 K/mm3 (0-0.3); Eosinophils Percent Auto 0.9 % (0-4.4); Hematocrit 33.6 % (37.0-47.0); Hemoglobin 10.7 g/dL (12.0-15.0); Immature Granulocyte Absolute 0.07 K/mm3 (0.00-0.031); Immature Granulocyte Percent A 0.8 % (0-0.5); Lymphocytes Absolute Auto 2.76 K/mm3 (0.9-3.2); Lymphocytes Percent Auto 31.4 % (18.3-44.2); Mean Corpuscular HGB Conc 31.8 g/dl (32-36); Mean Corpuscular Hemoglobin 28.8 pg (26-34); Mean Corpuscular Volume 90.6 fl (80-100); Mean Platelet Volume 9.6 fl (7.4-10.4); Monocytes Absolute Auto 0.5 K/mm3 (0.1-0.6); Monocytes Percent Auto 5.2 % (2.6-8.5); Neutrophils Absolute Auto 5.4 K/mm3 (1.3-6.7); Neutrophils Percent Auto 61.4 % (45.5-73.1); Nucleated Red Blood Cells Perc 0.3 % (0.0-0.2); Platelet Count Result 344 k/mm3 (150-375); Red Blood Count 3.71 M/mm3 (4.2-5.4); Red Cell Distribution Width 15.3 % (11.5-14.5); White Blood Count 8.8 K/mm3 (4.5-10.0)
[2024-06-07] MEDS: INSULIN HUMAN REGULAR (*BKC) 100 UNITS in SODIUM CHLORIDE 0.9% IV 99 ML 8 UNITS IV CONT (03:34)
[2024-06-07] MEDS: MAGNESIUM SULF 2 GM/WATER 50ML 2 GM/50 ML BAG IVPB (03:36)
[2024-06-07] MEDS: DEXTROSE 5%/0.45% SOD CHL 1,000 ML 100 ML IV CONT ×2 (03:37→16:13)
[2024-06-07 03:42] LABS: Glucose Point of Care 230 mg/dl (65-105)
[2024-06-07 04:18] LABS: Glucose Point of Care 222 mg/dl (65-105)
--- NOTE | 2024-06-07 04:28 | PC.NURSE ---
Patient placed on night monitor, VSS. ERP placed more meds for patient for pain.
[2024-06-07] MEDS: HALOPERIDOL LACTATE 5 MG/ML VIAL 2.5 MG IV PUSH (04:31)
[2024-06-07 05:03] LABS: Glucose Point of Care 189 mg/dl (65-105)
[2024-06-07 05:45] LABS: Glucose Point of Care 149 mg/dl (65-105)
--- NOTE | 2024-06-07 05:50 | PC.NURSE ---
ERP Dr. [place] notified of patients downward trending BGs, orders being placed/modified for drips.
--- NOTE | 2024-06-07 06:39 | PC.NURSE ---
Patients IV in R AC infiltrated. IV drips are paused at this time. Multiple attempts made to place another IV, patient is difficult IV start. casing crew pusher notified of paused drips and need for second IV line.
[2024-06-07] MEDS: ACETAMINOPHEN 325 MG TABLET 650 MG PO (08:24)
--- NOTE | 2024-06-07 09:10 | ADMGEN ---
This patient, Casandra Jones, was admitted to Intensive Care Unit-7 at 0910. Patient/family oriented to hospital policies and general routines including ID bracelet, bed and alarms, visiting hours, pain management, procedures, bathroom and other care routines, personal items, smoking policy, room service/diet, and visiting hours. Information on how to activate the Rapid Response Team has been discussed. Patient/Family are encouraged to report perceived risks to care and to ask questions if they do not understand what they are told or what they should do.
[2024-06-07 09:19] LABS: Glucose Point of Care 158 mg/dl (65-105)
[2024-06-07 09:19] LABS: Glucose Point of Care 192 mg/dl (65-105)
[2024-06-07 09:39] LABS: Glucose Point of Care 184 mg/dl (65-105)
--- NOTE | 2024-06-07 09:40 | P.CONIN_ITS ---
Assessment and Plan Assessment and plan (1) Abdominal pain: Code(s): R10.9 - Unspecified abdominal pain Status: Acute Assessment and Plan: 06/07: Patient presented with abdominal pain, along with nausea vomiting, triglycerides are not readable, possibly due to blood being lipemic. Lipase could not be resulted due to the blood being lipemic -06/07: CT scan of the abdomen and pelvis: 1. No acute intra-abdominal/pelvic process.2. Mild left hydronephrosis likely related to chronic UPJ obstruction with unchanged 1-2 mm nonobstructing left renal stone but no evident obstructing stone or mass at the transition point at the ureteropelvic junction. -could be related to hypertriglyceridemia and/ or chronic pancreatitis -Pain control with Dilaudid -Zofran for nausea/vomiting (2) Nausea & vomiting: Code(s): R11.2 - Nausea with vomiting, unspecified Status: Acute Assessment and Plan: Likely related to pancreatitis, hypertriglyceridemia -continue anti emetics (3) Hypertriglyceridemia: Code(s): E78.1 - Pure hyperglyceridemia Status: Acute Assessment and Plan: Triglyceride levels were not detectable due to blood being lipemic, patient is well known to us at this does happen every time she is here -started patient on insulin infusion with D5 half-normal saline to prevent hypoglycemia -will increase insulin infusion to 2 units/hour and gradually increase as tolerated for blood sugars. She may require D10 or D20 infusion to maintain adequate blood sugars -discussed with Nephrology, plasmapheresis being arranged (4) Chronic pancreatitis: Onset Date: ~09/02/23 Qualifiers: Pancreatitis type: other Qualified Code(s): K86.1 - Other chronic pancreatitis Code(s): K86.1 - Other chronic pancreatitis Status: Chronic Assessment and Plan: History of chronic pancreatitis, has been admitted multiple times for hypertriglyceridemia leading to pancreatitis -continue pain management -will restart pancreatic enzymes/Creon once patient able to tolerate PO (5) Type 2 diabetes mellitus: Qualifiers: Diabetes mellitus terminal carman insulin use: with care home use Diabetes mellitus complication status: without complication Qualified Code(s): E11.9 - Type 2 diabetes mellitus without complications; Z79.4 - terminal press operator (current) use of insulin Code(s): E11.9 - Type 2 diabetes mellitus without complications Status: Acute Assessment and Plan: Currently on insulin infusion -last hemoglobin A1c was 8.3 on 05/03/2024 Plan DVT prophylaxis: Lovenox Stress ulcer prophylaxis: Protonix Nutrition: NPO Code Status: Full code Critical Care Time Spent: 48 minutes Discussed with patient updated her with the symptoms and plan of care. Patient has had this issue multiple times and is aware of the plan of care, she is aware that she will be getting insulin and D5 for now and we are trying to arrange for plasmapheresis. I answered all her questions Due to a high probability of clinically significant, life threatening deterioration, the patient required my highest level of preparedness to intervene emergently and I personally spent this critical care time directly and personally managing the patient. This critical care time included obtaining a history; examining the patient; pulse oximetry; ordering and review of studies; arranging urgent treatment with development of a management plan; evaluation of patient's response to treatment; frequent reassessment; and discussions with other providers. It was exclusive of separately billable procedures and treating other patients and teaching time. Please see Assessment and Plan section and the rest of the note for further information on patient assessment and treatment This dictation may have been done utilizing a voice recognition system. Attempts have been made to correct errors. However, there may be uncorrected grammatical, spelling, and recognitions errors present. Copyist Consult Note Consult date: 06/07/24 Reason for consult: Abdominal pain, nausea, vomiting, acute on chronic pancreatitis, hypertriglyceridemia HPI: Casandra Jones is a 48 year old female patient with history of chronic pancreatitis, Chylomicronemia syndrome, GERD, hypertriglyceridemia, hypothyroidism, insulin-dependent diabetes, lipoprotein deficiency, polycystic ovarian syndrome, Port-A-Cath x2, coronary artery disease status post stent x3 in June 2023 at [facility], history of multiple plasmapheresis as outpatient and inpatient for hypertriglyceridemia, presented to the ED on 06/06/2024 with complains of abdominal pain. Abdominal pain is in the epigastric region which is similar to her previous episodes of chronic pancreatitis and hypertriglyceridemia. Requiring plasmapheresis insulin drip. She states that on 06/01/2024 her triglycerides were elevated to 800, she did not receive her plasma phoresis treatment at that time. She did received a steroid injection in left shoulder for bursitis/tendinitis on 06/03/[address] Oakley. She started developing abdominal pain since. Also complains of nausea, vomiting and diarrhea. Denies any chest pain, shortness of breath, hematemesis or melena. In the ED her blood was too lipemic for the triglycerides to be resulted. Patient was started on insulin infusion and D5 1/2NS and transferred to the ICU for further management Patient seen and examined the ICU, pleasant female, in no acute distress. Does complain of abdominal pain but her nausea and vomiting have resolved. Above history was obtained from the patient. Hemodynamically stable, currently in sinus rhythm, rate controlled co adequate O2 sats on room air. 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 Allergic rhinitis Insulin dependent diabetes mellitus Chronic pancreatitis (~09/02/23) Anxiety Hypertriglyceridemia Port-A-Cath in place Lipoprotein deficiency Chylomicronemia syndrome Thyroid disorder Hyperlipemia Headache Surgical History Surgical History History of wisdom tooth extraction History of tubal ligation History of partial hysterectomy History of endometrial ablation History of appendectomy History of loop electrical excision procedure (LEEP) History of exploratory laparotomy History of dilatation and curettage History of conization of cervix History of tonsillectomy Family History Family History Father Alcohol abuse Hypercholesteremia Hypertension Family history of alcoholism Family history of cardiovascular disease Diabetes mellitus Mother Hypercholesteremia Hypothyroid Cerebrovascular accident Family history of cardiovascular disease Diabetes mellitus Grandparent Skin cancer Colon cancer Heart disease Hypothyroid Cerebrovascular accident Sibling Autoimmune disorder Hypothyroid Kidney disorder Hypertension Diabetes mellitus Other Family history of kidney disease Social History Social History Social History: She smokes up to 1ppd since age 16yo. No alcohol or drug use. She has dog and a cat at home. Surrogate medical decision maker: José Miguel Jones, spouse. Code status: Full Smoking packs per day: 1 Smoking cigarettes per day: 20.0 Years smoked: 32 Smoking pack-years: 32.00 Smoking status: Current every day smoker Second hand tobacco smoke exposure: No Alcohol intake: never Drinks per week: 0 Substance use: never Substance use type: does not use Do You Feel Safe in your Home?: Yes Lack of Transportation: No Lack of Food: Never True Current Housing: I Have Housing Concerned About Future Housing: No Difficulty Paying Gas/Electric Bills: No Difficulty Paying for Meds: No Currently Unemployed: No Education: Associate Degree Difficulty w/ Childcare or Family Care: No Living arrangements: with family Occupation/Education: retired 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 Gender identity (if verbalized by the patient): Female Spiritual care concerns: No Meds Home Medications and Allergies Home Medications ?Medication ?Instructions ?Recorded ?Confirmed ?Type metformin 500 mg tablet 1,000 mg (2 x 500 mg) PO BID #180 12/19/22 06/07/24 Rx tabs levothyroxine 200 mcg tablet 200 mcg PO DAILY 07/21/23 06/07/24 History [id number] 2 cap PO TIDWMEAL 07/22/23 06/07/24 History 36,000-114,000-180,000 unit capsule,delay rel (Creon) aspirin 81 mg tablet,delayed 81 mg PO QAM #30 tabs 07/25/23 06/07/24 Rx release pantoprazole 40 mg tablet,delayed 40 mg PO BID #30 tabs 08/22/23 06/07/24 Rx release (Protonix) citalopram 40 mg tablet 40 mg PO DAILY 08/31/23 06/07/24 History ticagrelor 90 mg tablet (Brilinta) 90 mg PO BID #180 tabs 10/03/23 06/07/24 Rx bupropion HCl 150 mg tablet,12 hr 150 mg PO HS 10/09/23 06/07/24 History sustained-release pen needle, diabetic 32 gauge x #1,200 ea 11/14/23 06/07/24 Rx 5/32 (BD Ultra-Fine Diandra Pen Needle) insulin syringe-needle U-100 0.3 #100 ea 11/29/23 06/07/24 Rx mL 31 gauge x 5/16 (BD Insulin Syringe Ultra-Fine) trazodone 100 mg tablet 200 mg (2 x 100 mg) PO HS #180 tabs 12/26/23 06/07/24 Rx atorvastatin 80 mg tablet 80 mg PO HS #90 tabs 02/12/24 06/07/24 Rx ondansetron 4 mg disintegrating 4 mg PO Q8H PRN nausea and 02/27/24 06/07/24 Rx tablet vomiting #10 tabs lorazepam 1 mg tablet 1 mg PO QHS PRN sleep #90 tabs 03/27/24 06/07/24 Rx insulin aspart U-100 100 unit/mL See Rx Instructions .Route .COMPLEX 03/31/24 06/07/24 History subcutaneous solution (Novolog U-100 Insulin aspart) metoprolol succinate 25 mg 12.5 mg PO DAILY 03/31/24 06/07/24 History tablet,extended release 24 hr docusate sodium 100 mg capsule 100 mg PO Q12HR PRN constipation 04/08/24 06/07/24 Rx #20 caps cyclobenzaprine 10 mg tablet 10 mg PO HS PRN muscle spasm #10 04/26/24 06/07/24 Rx tabs fenofibrate 160 mg tablet 160 mg PO DAILY #90 tabs 04/27/24 06/07/24 Rx metoclopramide HCl 5 mg tablet 5 mg PO TIDWM nausea and vomiting 06/07/24 06/07/24 History Allergies Allergy/AdvReac Type Severity Reaction Status Date / Time adhesive tape Allergy Mild Rash Verified 06/06/24 22:47 [place] pepper (green pepper) Allergy Unknown Hives Verified 06/06/24 22:47 sucralose (From Splenda Allergy Migraine Verified 06/06/24 22:47 (sucralose)) Artificial Sweetners AdvReac Migraine Uncoded 05/15/24 12:38 Vital Signs Vital Signs - 24 hr 06/06/24 22:16 06/07/24 00:17 06/07/24 00:30 Temperature 97.8 F Pulse Rate 105 H Respiratory Rate 16 Blood Pressure 137/79 Pulse Oximetry 99 98 98 Oxygen Delivery Room Air Oxygen Flow Rate 06/07/24 00:45 06/07/24 01:00 06/07/24 01:13 Temperature Pulse Rate Respiratory Rate Blood Pressure 126/71 Pulse Oximetry 93 92 98 Oxygen Delivery Oxygen Flow Rate 06/07/24 01:15 06/07/24 01:16 06/07/24 01:20 Temperature Pulse Rate 88 Respiratory Rate 18 Blood Pressure 124/72 Pulse Oximetry 95 97 97 Oxygen Delivery Nasal Cannula Oxygen Flow Rate 2 06/07/24 01:30 06/07/24 01:45 06/07/24 02:00 Temperature Pulse Rate Respiratory Rate Blood Pressure 127/78 Pulse Oximetry 93 96 96 Oxygen Delivery Oxygen Flow Rate 06/07/24 02:01 06/07/24 02:15 06/07/24 02:30 Temperature Pulse Rate Respiratory Rate Blood Pressure Pulse Oximetry 98 98 96 Oxygen Delivery Oxygen Flow Rate 06/07/24 02:45 06/07/24 02:46 06/07/24 03:34 Temperature Pulse Rate 88 Respiratory Rate 18 Blood Pressure 121/67 Pulse Oximetry 96 98 99 Oxygen Delivery Oxygen Flow Rate 06/07/24 03:40 06/07/24 03:45 06/07/24 03:46 Temperature Pulse Rate 88 87 88 Respiratory Rate 17 18 14 Blood Pressure 136/64 124/64 Pulse Oximetry 98 98 98 Oxygen Delivery Oxygen Flow Rate 06/07/24 04:00 06/07/24 04:15 06/07/24 04:30 Temperature Pulse Rate 89 91 88 Respiratory Rate 14 14 15 Blood Pressure 110/56 L Pulse Oximetry 98 98 99 Oxygen Delivery Oxygen Flow Rate 06/07/24 04:31 06/07/24 04:45 06/07/24 05:00 Temperature Pulse Rate 91 89 91 Respiratory Rate 11 L 14 17 Blood Pressure Pulse Oximetry 99 98 97 Oxygen Delivery Oxygen Flow Rate 06/07/24 06:42 06/07/24 07:41 06/07/24 07:42 Temperature Pulse Rate 91 88 Respiratory Rate 20 14 Blood Pressure 113/78 118/80 Pulse Oximetry 94 91 91 Oxygen Delivery Room Air Oxygen Flow Rate 06/07/24 07:43 Temperature Pulse Rate Respiratory Rate Blood Pressure Pulse Oximetry 95 Oxygen Delivery Nasal Cannula Oxygen Flow Rate 2 Exam 2 Narrative: General: Pleasant female in no acute distress HEENT:? Pupils equal and reactive, sclera is clear, moist oral mucosa Neck:? Supple Respiratory:? Clear to auscultation bilaterally, no wheezing, adequate air entry Cardiac:? S1-S2 normal, regular rate and rhythm Abdomen:? Soft, epigastric tenderness, no guarding, normoactive bowel sounds, nondistended Extremities:? Trace edema, palpable pedal pulses Neuro:? Patient is awake, alert, oriented, nonfocal Skin:? Warm and dry Psych:? Normal mentation and affect Results Labs 06/07/24 09:19 06/07/24 00:28 Labs: Short CBC 06/06/24 Range/Units 00:28 WBC 8.8 (4.5-10.0) K/mm3 Hgb 10.7 L (12.0-15.0) g/dL Hct 33.6 L (37.0-47.0) % Plt Count 344 (150-375) k/mm3 BMP 06/07/24 00:28 Sodium 135 L Potassium 3.8 Chloride 104 Carbon Dioxide TNP BUN 13 Creatinine 0.54 L Glucose 212 H Calcium 7.7 L Cardiac Enzymes 06/07/24 Range/Units 00:28 Troponin I < 0.012 (0.000-0.034) ng/mL Liver Function 06/07/24 Range/Units 00:28 Total Bilirubin 0.5 (0.2-1.3) mg/dL AST 19 (14-36) U/L ALT 14 (6-35) U/L Alkaline Phosphatase 93 (38-126) U/L Albumin 3.4 L (3.5-5.1) g/dL Urine 06/06/24 Range/Units 23:43 Urine Color Yellow (Yellow) Urine Appearance Clear (Clear) Urine pH 6.0 (5.0-9.0) Ur Specific [place] 1.027 (1.001-1.035) Urine Protein Negative (Negative) mg/dL Urine Glucose (UA) 3+ H (Negative) mg/dL
[2024-06-07 10:00] LABS: Hematocrit 32.3 % (37.0-47.0); Hemoglobin 11.5 g/dL (12.0-15.0); Mean Corpuscular HGB Conc 35.6 g/dl (32-36); Mean Corpuscular Hemoglobin 31.3 pg (26-34); Mean Platelet Volume 9.3 fl (7.4-10.4); Platelet Count Result 345 k/mm3 (150-375); Red Blood Count 3.67 M/mm3 (4.2-5.4); Red Cell Distribution Width 15.6 % (11.5-14.5); White Blood Count 9.3 K/mm3 (4.5-10.0)
[2024-06-07] MEDS: ONDANSETRON INJ 4 MG/2 ML VIAL IV PUSH ×4 (10:22→23:37)
[2024-06-07] MEDS: PANTOPRAZOLE SODIUM IV 40 MG VIAL IV PUSH ×3 (10:23→20:55)
[2024-06-07 10:38] LABS: Glucose Point of Care 224 mg/dl (65-105)
[2024-06-07 10:58] LABS: Influenza A QL RT-PCR Negative (Negative); Influenza B QL RT-PCR Negative (Negative); RSV RNA, RT-PCR Negative (Negative); SARS-CoV-2 RNA PCR Negative (Negative)
[2024-06-07 10:59] LABS: Alanine Aminotransferase 15 U/L (6-35); Albumin Level 3.4 g/dL (3.5-5.1); Alkaline Phosphatase 77 U/L (38-126); Anion Gap 9 mmol/L (4-12); Aspartate Amino Transferase 24 U/L (14-36); Bilirubin,Total 0.6 mg/dL (0.2-1.3); Blood Urea Nitrogen 10 mg/dL (7-17); Calcium 7.8 mg/dL (8.4-10.2); Carbon Dioxide 21 mmol/L (22-30); Chloride 105 mmol/L (98-107); Estimated CRCL calculation 139 ml/min; Estimated Glomerular Filt Rate > 60; Glucose 175 mg/dL (65-110); Magnesium 1.7 mg/dL (1.6-2.3); Phosphorus 3.7 mg/dL (2.5-4.5); Sodium 135 mmol/L (137-145)
[2024-06-07 11:01] LABS: Potassium 4.5 mmol/L (3.4-5.0)
[2024-06-07] MEDS: TICAGRELOR 90 MG TABLET PO ×2 (11:06→20:55)
[2024-06-07] MEDS: FENOFIBRATE 160 MG TABLET PO (11:06)
[2024-06-07 11:22] LABS: Triglycerides > 2625 mg/dL (<150)
[2024-06-07 11:33] LABS: MRSA (PCR) NOT DETECTED (NOT DETECTE)
[2024-06-07 11:38] LABS: Glucose Point of Care 180 mg/dl (65-105)
[2024-06-07 12:38] LABS: Glucose Point of Care 165 mg/dl (65-105)
[2024-06-07 13:33] LABS: Glucose Point of Care 167 mg/dl (65-105)
[2024-06-07] MEDS: ALBUMIN HUMAN 5% IV CONT (14:45)
[2024-06-07] MEDS: CALCIUM CARBONATE (TUMS) 500 MG (200 MG ELEMENTAL) 1200 MG PO (14:53)
[2024-06-07 14:54] LABS: Glucose Point of Care 170 mg/dl (65-105)
--- NOTE | 2024-06-07 15:00 | P.CONNP_ITS ---
Assessment and Plan Assessment and plan (1) Hypertriglyceridemia: Code(s): E78.1 - Pure hyperglyceridemia Status: Chronic Assessment and Plan: * noted on admission * already on insulin gtt * last session of plasmapheresis for this issue was on her admission about in January 2024 * appears symptomatic with regard to this issue * plasmapheresis today * goal of plasmapheresis therapy would be to get triglyceride level less than 1000 * possible repeat session of plasmapheresis tomorrow depending on triglyceride level in AM * continue ongoing medical therapy (2) Abdominal pain: Qualifiers: Abdominal location: right upper quadrant Qualified Code(s): R10.11 - Right upper quadrant pain Code(s): R10.9 - Unspecified abdominal pain Status: Acute Assessment and Plan: * acute on chronic * presumably due known history of chronic pancreatitis and hypertriglyceridemia * CT of abd/pelvis without any acute pathology * PRN pain medications and antiemetics (3) Nausea & vomiting: Code(s): R11.2 - Nausea with vomiting, unspecified Status: Acute Assessment and Plan: * presumably related to pancreatitis and hypertriglyceridemia * continue PRN anti-emetics (4) Chronic pancreatitis: Qualifiers: Pancreatitis type: unspecified pancreatitis type Qualified Code(s): K 86.1 - Other chronic pancreatitis Code(s): K86.1 - Other chronic pancreatitis Status: Acute Assessment and Plan: * known history * however, CT of abd/pelvis negative * episodes appear to be secondary to episodes of hypertriglyceridemia * continue current therapy (5) Insulin dependent diabetes mellitus: Status: Chronic Assessment and Plan: * on insulin gtt * follow accu-cheks I will continue to follow the patient with you while she remains hospitalized and make further recommendations as deemed necessary. Thank you for allowing me to participate in the care of this patient. L History of Present Illness Reason for Consult Consult date: 06/07/24 Reason for consult: Other (plasmapheresis & hypertriglycerdemia) Chief Complaint Chief complaint: Hypertriglyceredemia and acute on chronic History of Present Illness Narrative: The patient is a 48-year-old female with a past medical history as outlined below who presented to [facility] Emergency Room late yesterday evening/early this morning with complaints of abdominal pain. She states the abdominal pain is localized her epigastric region and is similar to her previous episodes of chronic pancreatitis and associated hypertriglyceridemia. She apparently had outpatient labs done on 06/01/2024 that showed her triglyceride levels were elevated 800 but I do not believe any intervention was done at that time. Around that same time, she has seen orthopedics for ongoing issues with left shoulder pain secondary to bursitis /tendinitis and received a steroid injection (on 06/03/24). She was actually seen by the outpatient plasmapheresis nurse for flushing of her port and a dressing change on Saturday (06/05/24) who reported that her blood sample did not appear lipemic. Nonetheless, her abdominal pain seemed to start shortly afterwards in association with nausea, vomiting, and diarrhea. She reported no chest pain, shortness of breath, hematemesis, or melena but due to the persistence of the abdominal pain and the similar symptoms/ presentation in the past with regard to her chronic pancreatitis, she came to the emergency room for further assessment. Workup and evaluation emergency room demonstrated the patient be hemodynamically stable and afebrile. Routine blood tests were done which demonstrated a fairly normal CBC and chemistry with normal renal function and no critical electrolyte abnormalities. Unfortunately, the blood sample in the emergency room was too lipemic for assessment of her triglycerides and lipase level. However, in the past, when this has occurred with regard to her blood sample being like too lipemic, the assumption is that her triglyceride levels are fairly elevated. Hence, she was initiated on insulin infusion as well as D5 half-normal saline for treatment of her presumed hypertriglyceridemia and was subsequently admitted to the ICU for further management. Since her admission to the ICU, she appears to be doing fairly well aside from her complaints of abdominal pain although she reports her nausea and vomiting have resolved. A stat repeat labs done on her admission to the ICU once again show stability in her CBC and chemistry with no critical electrolyte abnormalities but her triglyceride level came back at > 2625. Renal consultation was requested for plasmapheresis for treatment of her hypertriglyceridemia. The patient is quite familiar to me as I have seen on hospitalizations here at [facility] whenever she requires plasmapheresis. The patient has received plasmapheresis during her many hospitalizations in the past for her high triglyceride levels both here at [facility] and at [facility]. She has a power port line in place that has been used for this purpose. There have been some occasions where she has responded to more conservative therapy with regard to an insulin drip and oral medications alone as well. However, as noted on this admission, her triglyceride level was not clear on admissioin as her blood sample of tool lipemic but repeat testing demonstrates it is > 2625. I saw the patient earlier today and currently while she is receiving plasmapheresis (seen on plasmapheresis at 2:45PM). Review of Systems 2 Review of Systems: As per HPI. 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 Allergic rhinitis Insulin dependent diabetes mellitus Chronic pancreatitis (~09/02/23) Anxiety Hypertriglyceridemia Port-A-Cath in place Lipoprotein deficiency Chylomicronemia syndrome Thyroid disorder Hyperlipemia Headache Surgical History Surgical History History of wisdom tooth extraction History of tubal ligation History of partial hysterectomy History of endometrial ablation History of appendectomy History of loop electrical excision procedure (LEEP) History of exploratory laparotomy History of dilatation and curettage History of conization of cervix History of tonsillectomy Family History Family History Father Alcohol abuse Hypercholesteremia Hypertension Family history of alcoholism Family history of cardiovascular disease Diabetes mellitus Mother Hypercholesteremia Hypothyroid Cerebrovascular accident Family history of cardiovascular disease Diabetes mellitus Grandparent Skin cancer Colon cancer Heart disease Hypothyroid Cerebrovascular accident Sibling Autoimmune disorder Hypothyroid Kidney disorder Hypertension Diabetes mellitus Other Family history of kidney disease Social History Social History Social History: She smokes up to 1ppd since age 16yo. No alcohol or drug use. She has dog and a cat at home. Surrogate medical decision maker: José Miguel Jones, spouse. Code status: Full Smoking packs per day: 1 Smoking cigarettes per day: 20.0 Years smoked: 32 Smoking pack-years: 32.00 Smoking status: Current every day smoker Second hand tobacco smoke exposure: No Alcohol intake: never Drinks per week: 0 Substance use: never Substance use type: does not use Do You Feel Safe in your Home?: Yes Lack of Transportation: No Lack of Food: Never True Current Housing: I Have Housing Concerned About Future Housing: No Difficulty Paying Gas/Electric Bills: No Difficulty Paying for Meds: No Currently Unemployed: No Education: Associate Degree Difficulty w/ Childcare or Family Care: No Living arrangements: with family Occupation/Education: retired 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 Gender identity (if verbalized by the patient): Female Spiritual care concerns: No Meds Home Medications and Allergies Home Medications ?Medication ?Instructions ?Recorded ?Confirmed ?Type metformin 500 mg tablet 1,000 mg (2 x 500 mg) PO BID #180 12/19/22 06/07/24 Rx tabs levothyroxine 200 mcg tablet 200 mcg PO DAILY 07/21/23 06/07/24 History datfob-mhdzldqg-cmsatcs 2 cap PO TIDWMEAL 07/22/23 06/07/24 History 36,000-114,000-180,000 unit capsule,delay rel (Creon) aspirin 81 mg tablet,delayed 81 mg PO QAM #30 tabs 07/25/23 06/07/24 Rx release pantoprazole 40 mg tablet,delayed 40 mg PO BID #30 tabs 08/22/23 06/07/24 Rx release (Protonix) citalopram 40 mg tablet 40 mg PO DAILY 08/31/23 06/07/24 History ticagrelor 90 mg tablet (Brilinta) 90 mg PO BID #180 tabs 10/03/23 06/07/24 Rx bupropion HCl 150 mg tablet,12 hr 150 mg PO HS 10/09/23 06/07/24 History sustained-release pen needle, diabetic 32 gauge x #1,200 ea 11/14/23 06/07/24 Rx 5/32 (BD Ultra-Fine Diandra Pen Needle) insulin syringe-needle U-100 0.3 #100 ea 11/29/23 06/07/24 Rx mL 31 gauge x 5/16 (BD Insulin Syringe Ultra-Fine) trazodone 100 mg tablet 200 mg (2 x 100 mg) PO HS #180 tabs 12/26/23 06/07/24 Rx atorvastatin 80 mg tablet 80 mg PO HS #90 tabs 02/12/24 06/07/24 Rx ondansetron 4 mg disintegrating 4 mg PO Q8H PRN nausea and 02/27/24 06/07/24 Rx tablet vomiting #10 tabs lorazepam 1 mg tablet 1 mg PO QHS PRN sleep #90 tabs 03/27/24 06/07/24 Rx insulin aspart U-100 100 unit/mL See Rx Instructions .Route .COMPLEX 03/31/24 06/07/24 History subcutaneous solution (Novolog U-100 Insulin aspart) metoprolol succinate 25 mg 12.5 mg PO DAILY 03/31/24 06/07/24 History tablet,extended release 24 hr docusate sodium 100 mg capsule 100 mg PO Q12HR PRN constipation 04/08/24 06/07/24 Rx #20 caps cyclobenzaprine 10 mg tablet 10 mg PO HS PRN muscle spasm #10 04/26/24 06/07/24 Rx tabs fenofibrate 160 mg tablet 160 mg PO DAILY #90 tabs 04/27/24 06/07/24 Rx metoclopramide HCl 5 mg tablet 5 mg PO TIDWM nausea and vomiting 06/07/24 06/07/24 History Allergies Allergy/AdvReac Type Severity Reaction Status Date / Time adhesive tape Allergy Mild Rash Verified 06/06/24 22:47 [place] pepper (green pepper) Allergy Unknown Hives Verified 06/06/24 22:47 sucralose (From Splenda Allergy Migraine Verified 06/06/24 22:47 (sucralose)) Artificial Sweetners AdvReac Migraine Uncoded 05/15/24 12:38 Vital Signs Vital Signs Temp Pulse Resp BP Pulse Ox O2 Del Method O2 Flow Rate 06/07/24 14:00 84 14 112/74 95 06/07/24 14:00 84 06/07/24 12:00 98.0 F 79 14 112/80 92 06/07/24 12:00 91 Nasal Cannula 2 06/07/24 12:00 77 06/07/24 10:00 83 06/07/24 10:00 97.8 F 83 14 131/71 93 06/07/24 10:00 93 Room Air 06/07/24 07:43 95 Nasal Cannula 2 06/07/24 07:42 91 Room Air 06/07/24 07:41 88 14 118/80 91 06/07/24 06:42 91 20 113/78 94 06/07/24 05:00 91 17 97 06/07/24 04:45 89 14 98 06/07/24 04:31 91 11 L 99 06/07/24 04:30 88 15 110/56 L 99 06/07/24 04:15 91 14 98 06/07/24 04:00 89 14 98 06/07/24 03:46 88 14 98 06/07/24 03:45 87 18 124/64 98 06/07/24 03:40 88 17 136/64 98 06/07/24 03:34 88 18 99 06/07/24 02:46 121/67 98 06/07/24 02:45 96 06/07/24 02:30 96 06/07/24 02:15 98 06/07/24 02:01 98 06/07/24 02:00 127/78 96 06/07/24 01:45 96 06/07/24 01:30 93 06/07/24 01:20 97 Nasal Cannula 2 06/07/24 01:16 88 18 97 06/07/24 01:15 124/72 95 06/07/24 01:13 126/71 98 06/07/24 01:00 92 06/07/24 00:45 93 06/07/24 00:30 98 06/07/24 00:17 98 06/06/24 22:16 97.8 F 105 H 16 137/79 99 Room Air Exam 2 Narrative: GENERAL APPEARANCE: mildly ill appearing female in no acute distress HEENT: normocephalic, atraumatic, normal conjunctiva and sclera, nares patient NECK: no lymphadenopathy, thyromegaly, or JVD MOUTH: dry lips, teeth, and gums CARDIOVASCULAR: RRR, normal S1 and S2, no rub RESPIRATORY: clear to auscultation bilaterally ABDOMEN: soft but with TTP in epigastric area, positive bowel sounds present EXTREMITIES: no evidence of cyanosis, clubbing, or edema NEUROLOGICAL: alert and oriented x 3; CN II - XII intact bilaterally; no focal deficits noted Results Lab Results 06/07/24 09:19 06/07/24 10:09 Lab results: Most recent lab results Calcium 7.8 mg/dL (8.4-10.2) L 06/07/24 10:09 Phosphorus 3.7 mg/dL (2.5-4.5) 06/07/24 10:09 Magnesium 1.7 mg/dL (1.6-2.3) 06/07/24 10:09
[2024-06-07 16:48] LABS: Glucose Point of Care 171 mg/dl (65-105)
[2024-06-07] MEDS: HEPARIN SODIUM, PORCINE 10,000 UNITS/10 ML VIAL 10000 UNITS IV PUSH (17:15)
[2024-06-07 17:42] LABS: Glucose Point of Care 183 mg/dl (65-105)
[2024-06-07 18:45] LABS: Glucose Point of Care 172 mg/dl (65-105)
[2024-06-07 19:31] LABS: Glucose Point of Care 150 mg/dl (65-105)
[2024-06-07 20:30] LABS: Triglycerides 1111 mg/dL (<150)
[2024-06-07] MEDS: ATORVASTATIN 40 MG TABLET 80 MG PO (20:55)
[2024-06-07 21:08] LABS: Glucose Point of Care 130 mg/dl (65-105)
[2024-06-07] MEDS: LORazepam (*CRX) 1 MG TABLET PO (21:08)
[2024-06-07] MEDS: traZODone HCL 50 MG TABLET 200 MG PO (21:08)
[2024-06-07 21:37] LABS: Glucose Point of Care 132 mg/dl (65-105)
[2024-06-07 22:48] LABS: Glucose Point of Care 113 mg/dl (65-105)
[2024-06-07 23:37] LABS: Glucose Point of Care 113 mg/dl (65-105)
[2024-06-08] VITALS (15 sets, daily range): BP systolic 105–142; BP diastolic 57–79; PULSE 70–101; RESP 11–21; TEMP 36.4–36.8; O2SAT 95–100; BMI 33.0
[2024-06-08 00:46] LABS: Glucose Point of Care 86 mg/dl (65-105)
[2024-06-08] MEDS: INSULIN HUMAN REGULAR (*BKC) 100 UNITS in SODIUM CHLORIDE 0.9% IV 99 ML IV CONT (00:50)
[2024-06-08 01:38] LABS: Glucose Point of Care 95 mg/dl (65-105)
[2024-06-08] MEDS: DEXTROSE 5%/0.45% SOD CHL 1,000 ML 100 ML IV CONT ×3 (02:41→22:54)
[2024-06-08] MEDS: HYDROmorphone HCL INJ (*CRX) 1 MG/ML SYR IV PUSH ×7 (02:46→23:30)
[2024-06-08 02:54] LABS: Glucose Point of Care 113 mg/dl (65-105)
[2024-06-08 03:44] LABS: Glucose Point of Care 116 mg/dl (65-105)
[2024-06-08 05:04] LABS: Glucose Point of Care 131 mg/dl (65-105)
[2024-06-08] MEDS: ONDANSETRON INJ 4 MG/2 ML VIAL IV PUSH ×3 (05:48→20:23)
[2024-06-08] MEDS: LEVOTHYROXINE SODIUM 100 MCG TABLET 200 MCG PO (05:49)
[2024-06-08 05:59] LABS: Glucose Point of Care 143 mg/dl (65-105)
[2024-06-08 06:55] LABS: Glucose Point of Care 136 mg/dl (65-105)
[2024-06-08 07:47] LABS: Basophils Percent Auto 0.4 % (0.2-1.2); Eosinophils Absolute Auto 0.1 K/mm3 (0-0.3); Eosinophils Percent Auto 1.3 % (0-4.4); Hematocrit 33.6 % (37.0-47.0); Hemoglobin 11.1 g/dL (12.0-15.0); Immature Granulocyte Absolute 0.06 K/mm3 (0.00-0.031); Immature Granulocyte Percent A 0.8 % (0-0.5); Lymphocytes Percent Auto 27.7 % (18.3-44.2); Mean Corpuscular Hemoglobin 29.1 pg (26-34); Mean Corpuscular Volume 88.2 fl (80-100); Mean Platelet Volume 9.1 fl (7.4-10.4); Monocytes Absolute Auto 0.4 K/mm3 (0.1-0.6); Monocytes Percent Auto 4.7 % (2.6-8.5); Neutrophils Absolute Auto 4.9 K/mm3 (1.3-6.7); Neutrophils Percent Auto 65.1 % (45.5-73.1); Platelet Count Result 225 k/mm3 (150-375); Red Blood Count 3.81 M/mm3 (4.2-5.4); Red Cell Distribution Width 15.4 % (11.5-14.5); White Blood Count 7.6 K/mm3 (4.5-10.0)
[2024-06-08 08:01] LABS: Glucose Point of Care 141 mg/dl (65-105)
[2024-06-08 08:13] LABS: Alanine Aminotransferase 12 U/L (6-35); Alkaline Phosphatase 34 U/L (38-126); Anion Gap 8 mmol/L (4-12); Aspartate Amino Transferase 16 U/L (14-36); Bilirubin,Total 0.5 mg/dL (0.2-1.3); Blood Urea Nitrogen 4 mg/dL (7-17); Calcium 8.4 mg/dL (8.4-10.2); Carbon Dioxide 22 mmol/L (22-30); Chloride 108 mmol/L (98-107); Estimated CRCL calculation 152 ml/min; Estimated Glomerular Filt Rate > 60; Glucose 126 mg/dL (65-110); Lipase 38 U/L (23-300); Magnesium 1.6 mg/dL (1.6-2.3); Phosphorus 3.5 mg/dL (2.5-4.5); Potassium 3.7 mmol/L (3.4-5.0); Sodium 138 mmol/L (137-145)
--- NOTE | 2024-06-08 08:19 | P.HP_ITS ---
H&P: HPI History of Present Illness Date/Time: 06/08/24 08:19 Chief Complaint: Abdominal pain Narrative: 48 years old lady with history of hypertriglyceridemia, chronic pancreatitis, diabetes, hypothyroidism, anxiety, present ED with a chief complaint of abdomen pain. Patient has been having progressive abdomen pain since Saturday, and is getting worse gradually. Patient has been having intermittent nausea vomiting. Patient also has some loose stool. Patient denies fever, chills. Patient checks her triglyceride on Saturday, and reach above 800. Patient need intermittent plasmapheresis treatment for hypertriglyceridemia. Patient denies black emesis, bloody stools, fever, chills, headache, chest pain, focal weakness. Patient came to ED for evaluation treatment. Upon arrival to ED, patient is afebrile, blood pressure stable, labs showed anemia hemoglobin 11.1 on the baseline, chemistry unremarkable. Lipase [address] shows no acute intra abdomen pelvis process. ER physician consult pharmacist technician for plasmapheresis. 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 Allergic rhinitis Insulin dependent diabetes mellitus Chronic pancreatitis (~09/02/23) Anxiety Hypertriglyceridemia Port-A-Cath in place Lipoprotein deficiency Chylomicronemia syndrome Thyroid disorder Hyperlipemia Headache Surgical History Surgical History History of wisdom tooth extraction History of tubal ligation History of partial hysterectomy History of endometrial ablation History of appendectomy History of loop electrical excision procedure (LEEP) History of exploratory laparotomy History of dilatation and curettage History of conization of cervix History of tonsillectomy Family History Family History Father Alcohol abuse Hypercholesteremia Hypertension Family history of alcoholism Family history of cardiovascular disease Diabetes mellitus Mother Hypercholesteremia Hypothyroid Cerebrovascular accident Family history of cardiovascular disease Diabetes mellitus Grandparent Skin cancer Colon cancer Heart disease Hypothyroid Cerebrovascular accident Sibling Autoimmune disorder Hypothyroid Kidney disorder Hypertension Diabetes mellitus Other Family history of kidney disease Social History Social History Social History: She smokes up to 1ppd since age 16yo. No alcohol or drug use. She has dog and a cat at home. Surrogate medical decision maker: José Miguel Jones, spouse. Code status: Full Smoking packs per day: 1 Smoking cigarettes per day: 20.0 Years smoked: 32 Smoking pack-years: 32.00 Smoking status: Current every day smoker Second hand tobacco smoke exposure: No Alcohol intake: never Drinks per week: 0 Substance use: never Substance use type: does not use Do You Feel Safe in your Home?: Yes Lack of Transportation: No Lack of Food: Never True Current Housing: I Have Housing Concerned About Future Housing: No Difficulty Paying Gas/Electric Bills: No Difficulty Paying for Meds: No Currently Unemployed: No Education: Associate Degree Difficulty w/ Childcare or Family Care: No Living arrangements: with family Occupation/Education: retired 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 Gender identity (if verbalized by the patient): Female Spiritual care concerns: No Meds Home Medications and Allergies Home Medications ?Medication ?Instructions ?Recorded ?Confirmed ?Type metformin 500 mg tablet 1,000 mg (2 x 500 mg) PO BID #180 12/19/22 06/07/24 Rx tabs levothyroxine 200 mcg tablet 200 mcg PO DAILY 07/21/23 06/07/24 History [id number]-[id number]-[id number] 2 cap PO TIDWMEAL 07/22/23 06/07/24 History 36,000-114,000-180,000 unit capsule,delay rel (Creon) aspirin 81 mg tablet,delayed 81 mg PO QAM #30 tabs 07/25/23 06/07/24 Rx release pantoprazole 40 mg tablet,delayed 40 mg PO BID #30 tabs 08/22/23 06/07/24 Rx release (Protonix) citalopram 40 mg tablet 40 mg PO DAILY 08/31/23 06/07/24 History ticagrelor 90 mg tablet (Brilinta) 90 mg PO BID #180 tabs 10/03/23 06/07/24 Rx bupropion HCl 150 mg tablet,12 hr 150 mg PO HS 10/09/23 06/07/24 History sustained-release pen needle, diabetic 32 gauge x #1,200 ea 11/14/23 06/07/24 Rx 5/32 (BD Ultra-Fine Diandra Pen Needle) insulin syringe-needle U-100 0.3 #100 ea 11/29/23 06/07/24 Rx mL 31 gauge x 5/16 (BD Insulin Syringe Ultra-Fine) trazodone 100 mg tablet 200 mg (2 x 100 mg) PO HS #180 tabs 12/26/23 06/07/24 Rx atorvastatin 80 mg tablet 80 mg PO HS #90 tabs 02/12/24 06/07/24 Rx ondansetron 4 mg disintegrating 4 mg PO Q8H PRN nausea and 02/27/24 06/07/24 Rx tablet vomiting #10 tabs lorazepam 1 mg tablet 1 mg PO QHS PRN sleep #90 tabs 03/27/24 06/07/24 Rx insulin aspart U-100 100 unit/mL See Rx Instructions .Route .COMPLEX 03/31/24 06/07/24 History subcutaneous solution (Novolog U-100 Insulin aspart) metoprolol succinate 25 mg 12.5 mg PO DAILY 03/31/24 06/07/24 History tablet,extended release 24 hr docusate sodium 100 mg capsule 100 mg PO Q12HR PRN constipation 04/08/24 06/07/24 Rx #20 caps cyclobenzaprine 10 mg tablet 10 mg PO HS PRN muscle spasm #10 04/26/24 06/07/24 Rx tabs fenofibrate 160 mg tablet 160 mg PO DAILY #90 tabs 04/27/24 06/07/24 Rx metoclopramide HCl 5 mg tablet 5 mg PO TIDWM nausea and vomiting 06/07/24 06/07/24 History Allergies Allergy/AdvReac Type Severity Reaction Status Date / Time adhesive tape Allergy Mild Rash Verified 06/06/24 22:47 [place] pepper (green pepper) Allergy Unknown Hives Verified 06/06/24 22:47 sucralose (From Splenda Allergy Migraine Verified 06/06/24 22:47 (sucralose)) Artificial Sweetners AdvReac Migraine Uncoded 05/15/24 12:38 Vital Signs Vital Signs - 24 hr 06/07/24 10:00 06/07/24 10:00 06/07/24 10:00 Temperature 97.8 F Pulse Rate 83 83 Respiratory Rate 14 Blood Pressure 131/71 Pulse Oximetry 93 93 Oxygen Delivery Room Air Oxygen Flow Rate 06/07/24 12:00 06/07/24 12:00 06/07/24 12:00 Temperature 98.0 F Pulse Rate 77 79 Respiratory Rate 14 Blood Pressure 112/80 Pulse Oximetry 91 92 Oxygen Delivery Nasal Cannula Oxygen Flow Rate 2 06/07/24 14:00 06/07/24 14:00 06/07/24 15:56 Temperature Pulse Rate 84 84 Respiratory Rate 14 Blood Pressure 112/74 Pulse Oximetry 95 95 Oxygen Delivery Room Air Oxygen Flow Rate 06/07/24 16:00 06/07/24 16:00 06/07/24 18:00 Temperature 98.3 F Pulse Rate 86 82 81 Respiratory Rate 12 Blood Pressure 104/75 Pulse Oximetry 99 Oxygen Delivery Oxygen Flow Rate 06/07/24 18:00 06/07/24 19:00 06/07/24 20:00 Temperature 98.2 F Pulse Rate 81 78 67 Respiratory Rate 14 12 7 L Blood Pressure 122/67 102/74 117/69 Pulse Oximetry 98 95 97 Oxygen Delivery Oxygen Flow Rate 06/07/24 20:00 06/07/24 20:30 06/07/24 21:00 Temperature Pulse Rate 69 82 Respiratory Rate 15 Blood Pressure 124/88 Pulse Oximetry 97 98 Oxygen Delivery Room Air Oxygen Flow Rate 06/07/24 22:00 06/07/24 22:00 06/07/24 23:00 Temperature Pulse Rate 80 80 78 Respiratory Rate 12 12 Blood Pressure 111/72 117/64 Pulse Oximetry 95 97 Oxygen Delivery Oxygen Flow Rate 06/08/24 00:00 06/08/24 00:00 06/08/24 00:30 Temperature 97.8 F Pulse Rate 73 74 Respiratory Rate 11 L Blood Pressure 105/70 Pulse Oximetry 96 98 Oxygen Delivery Room Air Oxygen Flow Rate 06/08/24 02:00 06/08/24 02:00 06/08/24 04:00 Temperature Pulse Rate 79 79 75 Respiratory Rate 12 Blood Pressure 122/70 Pulse Oximetry 95 Oxygen Delivery Oxygen Flow Rate 06/08/24 04:01 06/08/24 04:30 06/08/24 06:00 Temperature 98.0 F Pulse Rate 76 101 H Respiratory Rate 11 L 21 H Blood Pressure 119/72 123/67 Pulse Oximetry 96 96 99 Oxygen Delivery Room Air Oxygen Flow Rate 06/08/24 06:00 06/08/24 08:00 Temperature 97.7 F Pulse Rate 101 H 73 Respiratory Rate 14 Blood Pressure 111/70 Pulse Oximetry 97 Oxygen Delivery Oxygen Flow Rate Exam Narrative: GENERAL: Pleasant, in no acute distress. Well-nourished. - EYES: EOMI. Anicteric. - HENT: Moist mucous membranes. - LUNGS: Clear to auscultation bilateral ly, no wheezing, rhonchi, or rales. - CARDIOVASCULAR: Regular rate and rhyth m. No murmur. No JVD. - ABDOMEN: Soft, mid abdominal tender an d non-distended. No palpable masses. - EXTREMITIES: No edema. Peripheral puls es 2+. Non-tender. - NEUROLOGIC: No focal neurological defi cits. CN II-XII grossly intact. - PSYCHIATRIC: Awake, Alert and oriented x 3. Appropriate mood and affect. - SKIN: No rashes or lesions. Warm. - LYMPH: No cervical lymphadenopathy. H&P: Results Labs Labs: Short CBC 06/07/24 06/08/24 Range/Units 09:19 07:38 WBC 9.3 7.6 (4.5-10.0) K/mm3 Hgb 11.5 L 11.1 L (12.0-15.0) g/dL Hct 32.3 L 33.6 L (37.0-47.0) % Plt Count 345 225 (150-375) k/mm3 [facility] 06/07/24 06/08/24 10:09 07:38 Sodium 135 L 138 Potassium 4.5 3.7 Chloride 105 108 H Carbon Dioxide 21 L 22 BUN 10 4 L D Creatinine 0.45 L 0.41 L Glucose 175 H 126 H Calcium 7.8 L 8.4 Liver Function 06/07/24 06/08/24 Range/Units 10:09 07:38 Total Bilirubin 0.6 0.5 (0.2-1.3) mg/dL AST 24 16 (14-36) U/L ALT 15 12 (6-35) U/L Alkaline Phosphatase 77 34 L (38-126) U/L Albumin 3.4 L 4.0 (3.5-5.1) g/dL Assessment and Plan Assessment and plan (1) Type 2 diabetes mellitus: Qualifiers: Diabetes mellitus complication status: without complication 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: with senior care use Qualified Code(s): E11.9 - Type 2 diabetes mellitus without complications; Z79.4 - penitentiary (current) use of insulin Code(s): E11.9 - Type 2 diabetes mellitus without complications Status: Acute (2) Hypertriglyceridemia: Code(s): E78.1 - Pure hyperglyceridemia Status: Chronic (3) Chronic pancreatitis: Code(s): K86.1 - Other chronic pancreatitis Status: Acute (4) Acute on chronic pancreatitis: Code(s): K85.90 - Acute pancreatitis without necrosis or infection, unspecified; K86.1 - Other chronic pancreatitis Status: Acute (5) Hypomagnesemia: Code(s): E83.42 - Hypomagnesemia Status: Acute (6) Hypocalcemia: Code(s): E83.51 - Hypocalcemia Status: Acute Plan Abdominal pain: Code(s): R10.9 - Unspecified abdominal pain Status: Acute Assessment and Plan: Patient presented with abdominal pain, along with nausea vomiting, triglycerides are not readable, CT shows no acute abdomen and pelvis issue Possible due to hypertriglyceridemia that exacerbate chronic pancreatitis ain control with Dilaudid Zofran for nausea/vomiting Nausea & vomiting: Code(s): R11.2 - Nausea with vomiting, unspecified Status: Acute Assessment and Plan: Likely related to pancreatitis, hypertriglyceridemia Patient home Zofran Prn Hypertriglyceridemia: Code(s): E78.1 - Pure hyperglyceridemia Status: Acute Assessment and Plan: Plasmapheresis is orange band pharmacist technician Start insulin infusion Hypoglycemia protocol is initiated -discussed with Nephrology, plasmapheresis being arranged (4) Chronic pancreatitis: Onset Date: ~09/02/23 Qualifiers: Pancreatitis type: other Qualified Code(s): K86.1 - Other chronic pancreatitis Code(s): K86.1 - Other chronic pancreatitis Status: Chronic Assessment and Plan: continue pain management restart pancreatic enzymes/Creon once patient able to tolerate PO (5) Type 2 diabetes mellitus: Qualifiers: 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: with senior care use Diabetes mellitus complication status: without complication Qualified Code(s): E11.9 - Type 2 diabetes mellitus without complications; Z79.4 - 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 Code(s): E11.9 - Type 2 diabetes mellitus without complications Status: Acute Assessment and Plan: Currently on insulin infusion hemoglobin A1c was 8.3 on 05/03/2024 Hospitalist [facility] Advance Care Plan I have confirmed that the patient's Advanced Care Plan is present, code status is documented, or surrogate decision maker is listed in patient medical record.: Yes Medication Reconciliation I have utilized all available resources to obtain, update and review the patients current medications (includes all prescriptions, OTC, herbals, cannabis, and nutritional supplements).: Yes
[2024-06-08 08:31] LABS: Glucose Point of Care 145 mg/dl (65-105)
[2024-06-08 08:39] LABS: Triglycerides 581 mg/dL (<150)
[2024-06-08 09:29] LABS: Glucose Point of Care 137 mg/dl (65-105)
--- NOTE | 2024-06-08 09:42 | P.PNNP_ITS ---
Progress Note: A&P Assessment and Plan (1) Hypertriglyceridemia: Code(s): E78.1 - Pure hyperglyceridemia Status: Chronic Assessment and Plan: * noted on admission * on insulin gtt * wean as tolerated * s/p plasmapheresis yesterday (on 06/07/24) * goal of plasmapheresis therapy would be to get triglyceride level less than 1000 which has been achieved * no further plan for plasmapheresis at this time * follow repeat triglyceride levels * resume/continue ongoing medical therapy (2) Abdominal pain: Qualifiers: Abdominal location: right upper quadrant Qualified Code(s): R10.11 - Right upper quadrant pain Code(s): R10.9 - Unspecified abdominal pain Status: Acute Assessment and Plan: * acute on chronic * clinically better * presumably due known history of chronic pancreatitis and hypertriglyceridemia * CT of abd/pelvis without any acute pathology * PRN pain medications and antiemetics (3) Nausea & vomiting: Code(s): R11.2 - Nausea with vomiting, unspecified Status: Acute Assessment and Plan: * suspect seconddary to pancreatitis and hypertriglyceridemia * continue PRN antiemetic therapy (4) Chronic pancreatitis: Qualifiers: Pancreatitis type: unspecified pancreatitis type Qualified Code(s): K86.1 - Other chronic pancreatitis Code(s): K86.1 - Other chronic pancreatitis Status: Acute Assessment and Plan: * known history * however, CT of abd/pelvis negative * appears to be secondary to episodes of hypertriglyceridemia * continue current therapy (5) Insulin dependent diabetes mellitus: Status: Chronic Assessment and Plan: * on insulin gtt * eventual transition to home insulin requirements * follow accu-cheks * glycemic control per tableau developer/hospitalist Not much else to add -- will follow from a distance. Subjective Date/time seen: 06/08/24 09:42 Interval history: Follow-up for hypertriglyceridemia. Status post plasmapheresis session yesterday afternoon and tolerated the procedure reasonably well; remains on insulin gtt; still with some on/off nausea and reports abdominal pain is doing better; triglyceride level has markedly improved by testing this morning; no other acute issues/events voiced at this time. Exam Narrative: General: WD/WN female in NAD Heart: normal S1 and S2; no rub Lungs: clear to auscultation Abdomen: soft, mild TTP present; positive bowel sounds Extremities: no cyanosis or clubbing; trace edema Skin: warm and dry Objective Data Vital Signs Vital Signs: Vital Signs Temp Pulse Resp BP Pulse Ox O2 Del Method 06/08/24 08:00 97.7 F 73 14 111/70 97 Room Air 06/08/24 06:00 101 H 06/08/24 06:00 101 H 21 H 123/67 99 06/08/24 04:30 96 Room Air 06/08/24 04:01 98.0 F 76 11 L 119/72 96 06/08/24 04:00 75 06/08/24 02:00 79 12 122/70 95 06/08/24 02:00 79 06/08/24 00:30 98 Room Air 06/08/24 00:00 74 06/08/24 00:00 97.8 F 73 11 L 105/70 96 06/07/24 23:00 78 12 117/64 97 06/07/24 22:00 80 06/07/24 22:00 80 12 111/72 95 06/07/24 21:00 82 15 124/88 98 06/07/24 20:30 97 Room Air 06/07/24 20:00 69 06/07/24 20:00 98.2 F 67 7 L 117/69 97 06/07/24 19:00 78 12 102/74 95 06/07/24 18:00 81 14 122/67 98 06/07/24 18:00 81 06/07/24 16:00 98.3 F 82 12 104/75 99 06/07/24 16:00 86 06/07/24 15:56 95 Room Air 06/07/24 14:00 84 14 112/74 95 06/07/24 14:00 84 Intake/Output Intake/Output: Intake & Output 06/05/24 06/06/24 06/07/24 06/08/24 23:59 23:59 23:59 23:59 Intake Total 7096.4 1109.7 Output Total 1200 Balance 5896.4 1109.7 Meds/Results Medications: Active Medications Generic Name Dose Route Start Last Admin Trade Name Freq PRN Reason Stop Dose Admin Acetaminophen 650 mg 06/07/24 07:00 06/07/24 08:24 Acetaminophen 325 Mg Tablet PO 650 mg Q4H PRN Administration Mild Pain (1-3) or Fever Alteplase, Recombinant 2 mg 06/07/24 11:55 Alteplase 2 Mg Vial (Cathflo) IV PUSH ONCE PRN Line Occlusion Lipase/Protease/Amylase 6 cap 06/08/24 12:00 06/08/24 12:18 Lipase/Amylase/Protease 12,000 Units Cap PO 6 cap TIDWM RAPHAEL Administration Atorvastatin Calcium 80 mg 06/07/24 21:00 06/07/24 20:55 Atorvastatin 40 Mg Tablet PO 80 mg HS RAPHAEL Administration Bupropion HCl 150 mg 06/08/24 21:00 Bupropion Hcl Sr (12 Hr) 150 Mg Tab PO HS RAPHAEL Citalopram Hydrobromide 40 mg 06/09/24 09:00 Citalopram Hydrobromide 20 Mg Tablet PO DAILY RAPHAEL Dextrose 12.5 gm 06/07/24 02:31 Dextrose 50% 25 Gm/50 Ml Syringe IV PUSH PRN PRN Hypoglycemia Protocol Diphenhydramine HCl 25 mg 06/08/24 10:21 06/08/24 12:18 Diphenhydramine Hcl Cap 25 Mg Capsule PO 25 mg Q6H PRN Administration Itching Enoxaparin Sodium 40 mg 06/08/24 09:00 06/08/24 09:53 Enoxaparin 40 Mg/0.4 Ml Syringe SUB-Q 40 mg DAILY RAPHAEL Administration Fenofibrate 160 mg 06/07/24 09:00 06/08/24 09:53 Fenofibrate 160 Mg Tablet PO 160 mg DAILY RAPHAEL Administration Glucagon 1 mg 06/07/24 02:31 Glucagon For Inj 1 Mg Vial IM PRN PRN Hypoglycemia Protocol Glucose 15 gm 06/07/24 02:31 Glucose Oral Gel 15 Gm Of Glucse In 37.5 Gm Tube PO PRN PRN Hypoglycemia Protocol Hydromorphone HCl 1 mg 06/07/24 09:55 06/08/24 10:01 Hydromorphone Hcl Inj (*Crx) 1 Mg/Ml Syr IV PUSH 1 mg Q3H PRN Administration Pain Rated 7-10 Dextrose/Sodium Chloride 1,000 mls @ 100 mls/hr 06/07/24 02:30 06/08/24 02:41 Dextrose 5% Sodium Chloride 0.45% IV CONT 100 mls/hr .Q10H RAPHAEL Administration Dextrose 1,000 mls @ 100 mls/hr 06/07/24 02:31 Dextrose 5% 1,000 Ml IVPB PRN PRN Hypoglycemia Protocol Insulin Human Regular 100 100 mls @ 1 mls/hr 06/07/24 05:50 06/08/24 10:30 units/ Sodium Chloride IV CONT 1 units/hr .Q24H RAPHAEL 1 mls/hr Infusion 1 UNITS/HR Levothyroxine Sodium 200 mcg 06/08/24 06:30 06/08/24 05:49 Levothyroxine Sodium 100 Mcg Tablet PO 200 mcg DAILY@0630 RAPHAEL Administration Metoclopramide HCl 5 mg 06/08/24 12:00 06/08/24 12:19 Metoclopramide Hcl Inj 10 Mg/2 Ml Vial IV PUSH 5 mg Q6HR RAPHAEL Administration Ondansetron HCl 4 mg 06/07/24 07:00 06/08/24 10:01 Ondansetron Inj 4 Mg/2 Ml Vial IV PUSH 4 mg Q4H PRN Administration Nausea Pantoprazole Sodium 40 mg 06/07/24 09:00 06/08/24 09:53 Pantoprazole Sodium Iv 40 Mg Vial IV PUSH 40 mg Q12HR RAPHAEL Administration Ticagrelor 90 mg 06/07/24 09:00 06/08/24 09:53 Ticagrelor 90 Mg Tablet PO 90 mg Q12HR RAPHAEL Administration Radiology Results: ITS Impressions Abdomen/Pelvis CT 06/07/24 10:25 IMPRESSION: 1. No acute intra-abdominal/pelvic process. 2. Mild left hydronephrosis likely related to chronic UPJ obstruction with unchanged 1-2 mm nonobstructing left renal stone but no evident obstructing stone or mass at the transition point at the ureteropelvic junction. Labs Labs: Vital Signs Temp Pulse Resp BP Pulse Ox O2 Del Method 06/08/24 12:00 97.8 F 77 14 119/75 97 06/08/24 12:00 84 06/08/24 12:00 100 Room Air 06/08/24 10:00 75 06/08/24 10:00 97.7 F 75 18 121/72 99 06/08/24 08:00 100 Room Air 06/08/24 08:00 74 06/08/24 08:00 97.7 F 73 14 111/70 97 06/08/24 06:00 101 H 06/08/24 06:00 101 H 21 H 123/67 99 06/08/24 04:30 96 Room Air 06/08/24 04:01 98.0 F 76 11 L 119/72 96 06/08/24 04:00 75 06/08/24 02:00 79 12 122/70 95 06/08/24 02:00 79 06/08/24 00:30 98 Room Air 06/08/24 00:00 74 06/08/24 00:00 97.8 F 73 11 L 105/70 96 06/07/24 23:00 78 12 117/64 97 06/07/24 22:00 80 06/07/24 22:00 80 12 111/72 95 06/07/24 21:00 82 15 124/88 98 06/07/24 20:30 97 Room Air 06/07/24 20:00 69 06/07/24 20:00 98.2 F 67 7 L 117/69 97 06/07/24 19:00 78 12 102/74 95 06/07/24 18:00 81 14 122/67 98 06/07/24 18:00 81 06/07/24 16:00 98.3 F 82 12 104/75 99 06/07/24 16:00 86 06/07/24 15:56 95 Room Air 06/07/24 14:00 84 14 112/74 95 06/07/24 14:00 84
[2024-06-08] MEDS: ENOXAPARIN 40 MG/0.4 ML SYRINGE SUB-Q (09:53)
[2024-06-08] MEDS: FENOFIBRATE 160 MG TABLET PO (09:53)
[2024-06-08] MEDS: TICAGRELOR 90 MG TABLET PO ×2 (09:53→20:16)
[2024-06-08] MEDS: PANTOPRAZOLE SODIUM IV 40 MG VIAL IV PUSH ×2 (09:53→20:16)
--- NOTE | 2024-06-08 09:55 | P.PNINT_ITS ---
Progress Note: A&P Assessment and Plan (1) Hypertriglyceridemia: Code(s): E78.1 - Pure hyperglyceridemia Status: Acute Assessment and Plan: Triglyceride levels were not detectable due to blood being lipemic, patient is well known to us at this does happen every time she is here -started patient on insulin infusion with D5 half-normal saline to prevent hypoglycemia -remains on insulin infusion -nephrology following -06/07: status post plasmapheresis x1 -triglycerides level down to 581 -no moles plasmapheresis a plasmapheresis nurse and nephrology -continues to have abdominal pain and nausea, will continue insulin infusion for now -will repeat triglycerides level later today they will discontinue insulin infusion (2) Abdominal pain: Code(s): R10.9 - Unspecified abdominal pain Status: Acute Assessment and Plan: 06/07: Patient presented with abdominal pain, along with nausea vomiting, triglycerides are not readable, possibly due to blood being lipemic. Lipase could not be resulted due to the blood being lipemic -06/07: CT scan of the abdomen and pelvis: 1. No acute intra-abdominal/pelvic process.2. Mild left hydronephrosis likely related to chronic UPJ obstruction with unchanged 1-2 mm nonobstructing left renal stone but no evident obstructing stone or mass at the transition point at the ureteropelvic junction. -could be related to hypertriglyceridemia and/ or chronic pancreatitis -Pain control with Dilaudid -Zofran for nausea/vomiting (3) Nausea & vomiting: Code(s): R11.2 - Nausea with vomiting, unspecified Status: Acute Assessment and Plan: Likely related to pancreatitis, hypertriglyceridemia -continue anti emetics (4) Chronic pancreatitis: Onset Date: ~09/02/23 Qualifiers: Pancreatitis type: other Qualified Code(s): K86.1 - Other chronic pancreatitis Code(s): K86.1 - Other chronic pancreatitis Status: Chronic Assessment and Plan: History of chronic pancreatitis, has been admitted multiple times for hypertriglyceridemia leading to pancreatitis -continue pain management -will restart pancreatic enzymes/Creon once patient able to tolerate PO (5) Type 2 diabetes mellitus: Qualifiers: Diabetes mellitus snf insulin use: with 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 terminal 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 use Diabetes mellitus complication status: without complication Qualified Code(s): E11.9 - Type 2 diabetes mellitus without complications; 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 Patient has had this issue multiple times and is aware of the plan of care, she is aware that she will be getting insulin and D5 for now and we are trying to arrange for plasmapheresis. I answered all her questions Due to a high probability of clinically significant, life threatening deterioration, the patient required my highest level of preparedness to intervene emergently and I personally spent this critical care time directly and personally managing the patient. This critical care time included obtaining a history; examining the patient; pulse oximetry; ordering and review of studies; arranging urgent treatment with development of a management plan; evaluation of patient's response to treatment; frequent reassessment; and discussions with other providers. It was exclusive of separately billable procedures and treating other patients and teaching time. Please see Assessment and Plan section and the rest of the note for further information on patient assessment and treatment This dictation may have been done utilizing a voice recognition system. Attempts have been made to correct errors. However, there may be uncorrected grammatical, spelling, and recognitions errors present. Subjective Date/time seen: 06/08/24 09:55 Interval history: Reason for consult: Abdominal pain, nausea, vomiting, acute on chronic pancreatitis, hypertriglyceridemia 06/08/2024: Patient seen and examined the ICU, pleasant female, alert, awake, oriented, complains of nausea but no vomiting through the night, abdominal pain better. Triglyceride levels down to 581. Remains on insulin infusion. Does not have an appetite and does not want to eat anything at this time. Urine output has been adequate, afebrile, hemodynamically, denies any chest pain or shortness of breath Review of Systems Review of Systems: All systems reviewed & are unremarkable except as noted in HPI and below Exam Narrative: General: Pleasant female in no acute distress HEENT:? Pupils equal and reactive, sclera is clear, moist oral mucosa Neck:? Supple Respiratory:? Clear to auscultation bilaterally, no wheezing, adequate air entry Cardiac:? S1-S2 normal, regular rate and rhythm Abdomen:? Soft, epigastric tenderness, no guarding, normoactive bowel sounds, nondistended Extremities:? Trace edema, palpable pedal pulses Neuro:? Patient is awake, alert, oriented, nonfocal Skin:? Warm and dry Psych:? Normal mentation and affect Objective Data Vital Signs Vital Signs: Vital Signs - 24 hr 06/07/24 10:00 06/07/24 10:00 06/07/24 10:00 Temperature 97.8 F Pulse Rate 83 83 Respiratory Rate 14 Blood Pressure 131/71 Pulse Oximetry 93 93 Oxygen Delivery Room Air Oxygen Flow Rate 06/07/24 12:00 06/07/24 12:00 06/07/24 12:00 Temperature 98.0 F Pulse Rate 77 79 Respiratory Rate 14 Blood Pressure 112/80 Pulse Oximetry 91 92 Oxygen Delivery Nasal Cannula Oxygen Flow Rate 2 06/07/24 14:00 06/07/24 14:00 06/07/24 15:56 Temperature Pulse Rate 84 84 Respiratory Rate 14 Blood Pressure 112/74 Pulse Oximetry 95 95 Oxygen Delivery Room Air Oxygen Flow Rate 06/07/24 16:00 06/07/24 16:00 06/07/24 18:00 Temperature 98.3 F Pulse Rate 86 82 81 Respiratory Rate 12 Blood Pressure 104/75 Pulse Oximetry 99 Oxygen Delivery Oxygen Flow Rate 06/07/24 18:00 06/07/24 19:00 06/07/24 20:00 Temperature 98.2 F Pulse Rate 81 78 67 Respiratory Rate 14 12 7 L Blood Pressure 122/67 102/74 117/69 Pulse Oximetry 98 95 97 Oxygen Delivery Oxygen Flow Rate 06/07/24 20:00 06/07/24 20:30 06/07/24 21:00 Temperature Pulse Rate 69 82 Respiratory Rate 15 Blood Pressure 124/88 Pulse Oximetry 97 98 Oxygen Delivery Room Air Oxygen Flow Rate 06/07/24 22:00 06/07/24 22:00 06/07/24 23:00 Temperature Pulse Rate 80 80 78 Respiratory Rate 12 12 Blood Pressure 111/72 117/64 Pulse Oximetry 95 97 Oxygen Delivery Oxygen Flow Rate 06/08/24 00:00 06/08/24 00:00 06/08/24 00:30 Temperature 97.8 F Pulse Rate 73 74 Respiratory Rate 11 L Blood Pressure 105/70 Pulse Oximetry 96 98 Oxygen Delivery Room Air Oxygen Flow Rate 06/08/24 02:00 06/08/24 02:00 06/08/24 04:00 Temperature Pulse Rate 79 79 75 Respiratory Rate 12 Blood Pressure 122/70 Pulse Oximetry 95 Oxygen Delivery Oxygen Flow Rate 06/08/24 04:01 06/08/24 04:30 06/08/24 06:00 Temperature 98.0 F Pulse Rate 76 101 H Respiratory Rate 11 L 21 H Blood Pressure 119/72 123/67 Pulse Oximetry 96 96 99 Oxygen Delivery Room Air Oxygen Flow Rate 06/08/24 06:00 06/08/24 08:00 Temperature 97.7 F Pulse Rate 101 H 73 Respiratory Rate 14 Blood Pressure 111/70 Pulse Oximetry 97 Oxygen Delivery Oxygen Flow Rate Intake/Output Intake/Output: Intake & Output 06/05/24 06/06/24 06/07/24 06/08/24 23:59 23:59 23:59 23:59 Intake Total 7096.4 1106.7 Output Total 1200 Balance 5896.4 1106.7 Meds/Results Medications: Active Medications Generic Name Dose Route Start Last Admin Trade Name Freq PRN Reason Stop Dose Admin Acetaminophen 650 mg 06/07/24 07:00 06/07/24 08:24 Acetaminophen 325 Mg Tablet PO 650 mg Q4H PRN Administration Mild Pain (1-3) or Fever Alteplase, Recombinant 2 mg 06/07/24 11:55 Alteplase 2 Mg Vial (Cathflo) IV PUSH ONCE PRN Line Occlusion Atorvastatin Calcium 80 mg 06/07/24 21:00 06/07/24 20:55 Atorvastatin 40 Mg Tablet PO 80 mg HS RAPHAEL Administration Dextrose 12.5 gm 06/07/24 02:31 Dextrose 50% 25 Gm/50 Ml Syringe IV PUSH PRN PRN Hypoglycemia Protocol Enoxaparin Sodium 40 mg 06/08/24 09:00 Enoxaparin 40 Mg/0.4 Ml Syringe SUB-Q DAILY RAPHAEL Fenofibrate 160 mg 06/07/24 09:00 06/07/24 11:06 Fenofibrate 160 Mg Tablet PO 160 mg DAILY RAPHAEL Administration Glucagon 1 mg 06/07/24 02:31 Glucagon For Inj 1 Mg Vial IM PRN PRN Hypoglycemia Protocol Glucose 15 gm 06/07/24 02:31 Glucose Oral Gel 15 Gm Of Glucse In 37.5 Gm Tube PO PRN PRN Hypoglycemia Protocol Hydromorphone HCl 1 mg 06/07/24 09:55 06/08/24 05:48 Hydromorphone Hcl Inj (*Crx) 1 Mg/Ml Syr IV PUSH 1 mg Q3H PRN Administration Pain Rated 7-10 Dextrose/Sodium Chloride 1,000 mls @ 100 mls/hr 06/07/24 02:30 06/08/24 02:41 Dextrose 5% Sodium Chloride 0.45% IV CONT 100 mls/hr .Q10H RAPHAEL Administration Dextrose 1,000 mls @ 100 mls/hr 06/07/24 02:31 Dextrose 5% 1,000 Ml IVPB PRN PRN Hypoglycemia Protocol Insulin Human Regular 100 100 mls @ 1 mls/hr 06/07/24 05:50 06/08/24 07:30 units/ Sodium Chloride IV CONT 1 units/hr .Q24H RAPHAEL 1 mls/hr Infusion 1 UNITS/HR Levothyroxine Sodium 200 mcg 06/08/24 06:30 06/08/24 05:49 Levothyroxine Sodium 100 Mcg Tablet PO 200 mcg DAILY@0630 RAPHAEL Administration Ondansetron HCl 4 mg 06/07/24 07:00 06/08/24 05:48 Ondansetron Inj 4 Mg/2 Ml Vial IV PUSH 4 mg Q4H PRN Administration Nausea Pantoprazole Sodium 40 mg 06/07/24 09:00 06/07/24 20:55 Pantoprazole Sodium Iv 40 Mg Vial IV PUSH 40 mg Q12HR RAPHAEL Administration Ticagrelor 90 mg 06/07/24 09:00 06/07/24 20:55 Ticagrelor 90 Mg Tablet PO 90 mg Q12HR RAPHAEL Administration Radiology Results: ITS Impressions Abdomen/Pelvis CT 06/07/24 10:25 IMPRESSION: 1. No acute intra-abdominal/pelvic process. 2. Mild left hydronephrosis likely related to chronic UPJ obstruction with unchanged 1-2 mm nonobstructing left renal stone but no evident obstructing stone or mass at the transition point at the ureteropelvic junction. Labs Labs: Laboratory Results - last 24 hr 06/07/24 06/07/24 06/07/24 09:19 10:09 10:17 WBC 9.3 RBC 3.67 L Hgb 11.5 L Hct 32.3 L MCV 88.0 MCH 31.3 D MCHC 35.6 RDW 15.6 H Plt Count 345 MPV 9.3 Immature Gran % (Auto) Neut % (Auto) Lymph % (Auto) [place] % (Auto) Eos % (Auto) Baso % (Auto) Lymph # (Auto) [place] # (Auto) Eos # (Auto) Baso # (Auto) Abs Immat Gran (auto) Absolute Neuts (auto) Absolute Nucleated RBC Nucleated RBC % Sodium 135 L Potassium 4.5 Chloride 105 Carbon Dioxide 21 L Anion Gap 9 BUN 10 Creatinine 0.45 L Estim Creat Clear Calc 139 Estimated GFR > 60 Glucose 175 H POC Capillary Glucose Calcium 7.8 L Phosphorus 3.7 Magnesium 1.7 Total Bilirubin 0.6 AST 24 ALT 15 Alkaline Phosphatase 77 Total Protein 6.0 L Albumin 3.4 L Triglycerides > 2625 H Lipase Nasal MRSA (PCR) Not detected Influenza A (RT-PCR) Negative Influenza B (RT-PCR) Negative RSV (RT-PCR) Negative SARS-CoV-2 RNA (RT-PCR) Negative 06/07/24 06/07/24 06/07/24 10:29 11:35 12:36 WBC RBC Hgb Hct MCV MCH MCHC RDW Plt Count MPV Immature Gran % (Auto) Neut % (Auto) Lymph % (Auto) [place] % (Auto) Eos % (Auto) Baso % (Auto) Lymph # (Auto) [place] # (Auto) Eos # (Auto) Baso # (Auto) Abs Immat Gran (auto) Absolute Neuts (auto) Absolute Nucleated RBC Nucleated RBC % Sodium Potassium Chloride Carbon Dioxide Anion Gap BUN Creatinine Estim Creat Clear Calc Estimated GFR Glucose POC Capillary Glucose 224 H 180 H 165 H Calcium Phosphorus Magnesium Total Bilirubin AST ALT Alkaline Phosphatase Total Protein Albumin Triglycerides Lipase Nasal MRSA (PCR) Influenza A (RT-PCR) Influenza B (RT-PCR) RSV (RT-PCR) SARS-CoV-2 RNA (RT-PCR) 06/07/24 06/07/24 06/07/24 13:30 14:52 16:46 WBC RBC Hgb Hct MCV MCH MCHC RDW Plt Count MPV Immature Gran % (Auto) Neut % (Auto) Lymph % (Auto) [place] % (Auto) Eos % (Auto) Baso % (Auto) Lymph # (Auto) [place] # (Auto) Eos # (Auto) Baso # (Auto) Abs Immat Gran (auto) Absolute Neuts (auto) Absolute Nucleated RBC Nucleated RBC % Sodium Potassium Chloride Carbon Dioxide Anion Gap BUN Creatinine Estim Creat Clear Calc Estimated GFR Glucose POC Capillary Glucose 167 H 170 H 171 H Calcium Phosphorus Magnesium Total Bilirubin AST ALT Alkaline Phosphatase Total Protein Albumin Triglycerides Lipase Nasal MRSA (PCR) Influenza A (RT-PCR) Influenza B (RT-PCR) RSV (RT-PCR) SARS-CoV-2 RNA (RT-PCR) 06/07/24 06/07/24 06/07/24 17:25 18:43 19:26 WBC RBC Hgb Hct MCV MCH MCHC RDW Plt Count MPV Immature Gran % (Auto) Neut % (Auto) Lymph % (Auto) [place] % (Auto) Eos % (Auto) Baso % (Auto) Lymph # (Auto) [place] # (Auto) Eos # (Auto) Baso # (Auto) Abs Immat Gran (auto) Absolute Neuts (auto) Absolute Nucleated RBC Nucleated RBC % Sodium Potassium Chloride Carbon Dioxide Anion Gap BUN Creatinine Estim Creat Clear Calc Estimated GFR Glucose POC Capillary Glucose 183 H 172 H 150 H Calcium Phosphorus Magnesium Total Bilirubin AST ALT Alkaline Phosphatase Total Protein Albumin Triglycerides Lipase Nasal MRSA (PCR) Influenza A (RT-PCR) Influenza B (RT-PCR) RSV (RT-PCR) SARS-CoV-2 RNA (RT-PCR) 06/07/24 06/07/24 06/07/24 19:52 20:34 21:35 WBC RBC Hgb Hct MCV MCH MCHC RDW Plt Count MPV Immature Gran % (Auto) Neut % (Auto) Lymph % (Auto) [place] % (Auto) Eos % (Auto) Baso % (Auto) Lymph # (Auto) [place] # (Auto) Eos # (Auto) Baso # (Auto) Abs Immat Gran (auto) Absolute Neuts (auto) Absolute Nucleated RBC Nucleated RBC % Sodium Potassium Chloride Carbon Dioxide Anion Gap BUN Creatinine Estim Creat Clear Calc Estimated GFR Glucose POC Capillary Glucose 130 H 132 H Calcium Phosphorus Magnesium Total Bilirubin AST ALT Alkaline Phosphatase Total Protein Albumin Triglycerides 1111 H Lipase Nasal MRSA (PCR) Influenza A (RT-PCR) Influenza B (RT-PCR) RSV (RT-PCR) SARS-CoV-2 RNA (RT-PCR) 06/07/24 06/07/24 06/08/24 22:45 23:34 00:42 WBC RBC Hgb Hct MCV MCH MCHC RDW Plt Count MPV Immature Gran % (Auto) Neut % (Auto) Lymph % (Auto) [place] % (Auto) Eos % (Auto) Baso % (Auto) Lymph # (Auto) [place] # (Auto) Eos # (Auto) Baso # (Auto) Abs Immat Gran (auto) Absolute Neuts (auto) Absolute Nucleated RBC Nucleated RBC % Sodium Potassium Chloride Carbon Dioxide Anion Gap BUN Creatinine Estim Creat Clear Calc Estimated GFR Glucose POC Capillary Glucose 113 H 113 H 86 Calcium Phosphorus Magnesium Total Bilirubin AST ALT Alkaline Phosphatase Total Protein Albumin Triglycerides Lipase Nasal MRSA (PCR) Influenza A (RT-PCR) Influenza B (RT-PCR) RSV (RT-PCR) SARS-CoV-2 RNA (RT-PCR) 06/08/24 06/08/24 06/08/24 01:35 02:50 03:42 WBC RBC Hgb Hct MCV MCH MCHC RDW Plt Count MPV Immature Gran % (Auto) Neut % (Auto) Lymph % (Auto) [place] % (Auto) Eos % (Auto) Baso % (Auto) Lymph # (Auto) [place] # (Auto) Eos # (Auto) Baso # (Auto) Abs Immat Gran (auto) Absolute Neuts (auto) Absolute Nucleated RBC Nucleated RBC % Sodium Potassium Chloride Carbon Dioxide Anion Gap BUN Creatinine Estim Creat Clear Calc Estimated GFR Glucose POC Capillary Glucose 95 113 H 116 H Calcium Phosphorus Magnesium Total Bilirubin AST ALT Alkaline Phosphatase Total Protein Albumin Triglycerides Lipase Nasal MRSA (PCR) Influenza A (RT-PCR) Influenza B (RT-PCR) RSV (RT-PCR) SARS-CoV-2 RNA (RT-PCR) 06/08/24 06/08/24 06/08/24 04:45 05:47 06:53 WBC RBC Hgb Hct MCV MCH MCHC RDW Plt Count MPV Immature Gran % (Auto) Neut % (Auto) Lymph % (Auto) [place] % (Auto) Eos % (Auto) Baso % (Auto) Lymph # (Auto) [place] # (Auto) Eos # (Auto) Baso # (Auto) Abs Immat Gran (auto) Absolute Neuts (auto) Absolute Nucleated RBC Nucleated RBC % Sodium Potassium Chloride Carbon Dioxide Anion Gap BUN Creatinine Estim Creat Clear Calc Estimated GFR Glucose POC Capillary Glucose 131 H 143 H 136 H Calcium Phosphorus Magnesium Total Bilirubin AST ALT Alkaline Phosphatase Total Protein Albumin Triglycerides Lipase Nasal MRSA (PCR) Influenza A (RT-PCR) Influenza B (RT-PCR) RSV (RT-PCR) SARS-CoV-2 RNA (RT-PCR) 06/08/24 06/08/24 06/08/24 07:33 07:38 07:38 WBC 7.6 RBC 3.81 L Hgb 11.1 L Hct 33.6 L MCV 88.2 MCH 29.1 D MCHC 33.0 RDW 15.4 H Plt Count 225 MPV 9.1 Immature Gran % (Auto) 0.8 H Neut % (Auto) 65.1 Lymph % (Auto) 27.7 [place] % (Auto) 4.7 Eos % (Auto) 1.3 Baso % (Auto) 0.4 Lymph # (Auto) 2.10 [place] # (Auto) 0.4 Eos # (Auto) 0.1 Baso # (Auto) 0.0 Abs Immat Gran (auto) 0.06 H Absolute Neuts (auto) 4.9 Absolute Nucleated RBC 0.000 Nucleated RBC % 0.0 Sodium 138 Potassium 3.7 Chloride 108 H Carbon Dioxide 22 Anion Gap 8 BUN 4 L D Creatinine 0.41 L Estim Creat Clear Calc 152 Estimated GFR > 60 Glucose 126 H POC Capillary Glucose 141 H Calcium 8.4 Phosphorus 3.5 Magnesium 1.6 Total Bilirubin 0.5 AST 16 ALT 12 Alkaline Phosphatase 34 L Total Protein 6.0 L Albumin 4.0 Triglycerides 581 H Cancelled Lipase 38 Nasal MRSA (PCR) Influenza A (RT-PCR) Influenza B (RT-PCR) RSV (RT-PCR) SARS-CoV-2 RNA (RT-PCR) 06/08/24 06/08/24 08:24 09:26 WBC RBC Hgb Hct MCV MCH MCHC RDW Plt Count MPV Immature Gran % (Auto) Neut % (Auto) Lymph % (Auto) [place] % (Auto) Eos % (Auto) Baso % (Auto) Lymph # (Auto) [place] # (Auto) Eos # (Auto) Baso # (Auto) Abs Immat Gran (auto) Absolute Neuts (auto) Absolute Nucleated RBC Nucleated RBC % Sodium Potassium Chloride Carbon Dioxide Anion Gap BUN Creatinine Estim Creat Clear Calc Estimated GFR Glucose POC Capillary Glucose 145 H 137 H Calcium Phosphorus Magnesium Total Bilirubin AST ALT Alkaline Phosphatase Total Protein Albumin Triglycerides Lipase Nasal MRSA (PCR) Influenza A (RT-PCR) Influenza B (RT-PCR) RSV (RT-PCR) SARS-CoV-2 RNA (RT-PCR)
[2024-06-08 10:37] LABS: Glucose Point of Care 131 mg/dl (65-105)
[2024-06-08 11:52] LABS: Glucose Point of Care 140 mg/dl (65-105)
[2024-06-08] MEDS: LIPASE/AMYLASE/PROTEASE 12,000 UNITS CAP 6 CAP PO ×2 (12:18→17:14)
[2024-06-08] MEDS: diphenhydrAMINE HCl CAP 25 MG CAPSULE PO ×2 (12:18→20:28)
[2024-06-08] MEDS: METOCLOPRAMIDE HCL INJ 10 MG/2 ML VIAL 5 MG IV PUSH ×3 (12:19→23:30)
[2024-06-08 12:29] LABS: Glucose Point of Care 138 mg/dl (65-105)
[2024-06-08 13:37] LABS: Glucose Point of Care 147 mg/dl (65-105)
[2024-06-08 14:42] LABS: Glucose Point of Care 152 mg/dl (65-105)
[2024-06-08 15:59] LABS: Glucose Point of Care 132 mg/dl (65-105)
[2024-06-08 17:33] LABS: Glucose Point of Care 143 mg/dl (65-105)
[2024-06-08 17:33] LABS: Glucose Point of Care 165 mg/dl (65-105)
[2024-06-08 18:41] LABS: Glucose Point of Care 201 mg/dl (65-105)
[2024-06-08 18:54] LABS: Triglycerides 702 mg/dL (<150)
[2024-06-08 19:21] LABS: Glucose Point of Care 165 mg/dl (65-105)
[2024-06-08 20:13] LABS: Glucose Point of Care 177 mg/dl (65-105)
[2024-06-08] MEDS: buPROPion HCL SR (12 HR) 150 MG TAB PO (20:16)
[2024-06-08] MEDS: ATORVASTATIN 40 MG TABLET 80 MG PO (20:16)
[2024-06-08] MEDS: LORazepam (*CRX) 1 MG TABLET PO (21:15)
[2024-06-08] MEDS: traZODone HCL 50 MG TABLET 200 MG PO (21:15)
[2024-06-08 21:19] LABS: Glucose Point of Care 151 mg/dl (65-105)
[2024-06-08 22:26] LABS: Glucose Point of Care 154 mg/dl (65-105)
[2024-06-09] VITALS (10 sets, daily range): BP systolic 96–143; BP diastolic 62–90; PULSE 76–97; RESP 11–22; TEMP 36.6–36.7; O2SAT 94–98
[2024-06-09 00:05] LABS: Glucose Point of Care 149 mg/dl (65-105)
[2024-06-09 01:04] LABS: Glucose Point of Care 165 mg/dl (65-105)
[2024-06-09 02:31] LABS: Glucose Point of Care 218 mg/dl (65-105)
[2024-06-09] MEDS: INSULIN HUMAN REGULAR (*BKC) 100 UNITS in SODIUM CHLORIDE 0.9% IV 99 ML IV CONT (03:25)
[2024-06-09 03:30] LABS: Glucose Point of Care 226 mg/dl (65-105)
[2024-06-09 04:45] LABS: Basophils Percent Auto 0.3 % (0.2-1.2); Eosinophils Absolute Auto 0.1 K/mm3 (0-0.3); Eosinophils Percent Auto 1.5 % (0-4.4); Hematocrit 32.8 % (37.0-47.0); Hemoglobin 10.7 g/dL (12.0-15.0); Immature Granulocyte Absolute 0.06 K/mm3 (0.00-0.031); Mean Corpuscular HGB Conc 32.6 g/dl (32-36); Mean Corpuscular Hemoglobin 29.3 pg (26-34); Mean Corpuscular Volume 89.9 fl (80-100); Monocytes Absolute Auto 0.3 K/mm3 (0.1-0.6); Monocytes Percent Auto 5.5 % (2.6-8.5); Neutrophils Absolute Auto 3.7 K/mm3 (1.3-6.7); Neutrophils Percent Auto 62.7 % (45.5-73.1); Platelet Count Result 210 k/mm3 (150-375); Red Blood Count 3.65 M/mm3 (4.2-5.4); Red Cell Distribution Width 15.2 % (11.5-14.5); White Blood Count 5.9 K/mm3 (4.5-10.0)
[2024-06-09 04:47] LABS: Glucose Point of Care 164 mg/dl (65-105)
[2024-06-09 04:56] LABS: Triglycerides 453 mg/dL (<150)
[2024-06-09] MEDS: HYDROmorphone HCL INJ (*CRX) 1 MG/ML SYR IV PUSH ×6 (04:57→23:34)
[2024-06-09] MEDS: METOCLOPRAMIDE HCL INJ 10 MG/2 ML VIAL 5 MG IV PUSH ×4 (05:00→23:34)
[2024-06-09 05:04] LABS: Alanine Aminotransferase 12 U/L (6-35); Albumin Level 3.8 g/dL (3.5-5.1); Alkaline Phosphatase 35 U/L (38-126); Anion Gap 9 mmol/L (4-12); Aspartate Amino Transferase 16 U/L (14-36); Bilirubin,Total 0.5 mg/dL (0.2-1.3); Blood Urea Nitrogen 2 mg/dL (7-17); Calcium 8.6 mg/dL (8.4-10.2); Carbon Dioxide 23 mmol/L (22-30); Chloride 106 mmol/L (98-107); Estimated CRCL calculation 123 ml/min; Estimated Glomerular Filt Rate > 60; Glucose 158 mg/dL (65-110); Lipase 37 U/L (23-300); Magnesium 1.5 mg/dL (1.6-2.3); Phosphorus 3.7 mg/dL (2.5-4.5); Potassium 3.6 mmol/L (3.4-5.0); Sodium 138 mmol/L (137-145)
[2024-06-09] MEDS: HYDROmorphone HCL INJ (*CRX) 1 MG/ML SYR 0.5 MG IV PUSH (06:36)
[2024-06-09] MEDS: LEVOTHYROXINE SODIUM 100 MCG TABLET 200 MCG PO (06:36)
[2024-06-09 06:40] LABS: Glucose Point of Care 164 mg/dl (65-105)
[2024-06-09 07:33] LABS: Glucose Point of Care 161 mg/dl (65-105)
[2024-06-09 07:48] LABS: Glucose Point of Care 156 mg/dl (65-105)
[2024-06-09] MEDS: MAGNESIUM SULF 2 GM/WATER 50ML 2 GM/50 ML BAG IVPB (08:21)
[2024-06-09] MEDS: POTASSIUM CHLORIDE 20 MEQ PACKET (FOR LIQUID) 40 MEQ PO (08:22)
[2024-06-09] MEDS: LIPASE/AMYLASE/PROTEASE 12,000 UNITS CAP 6 CAP PO ×3 (08:22→16:33)
[2024-06-09] MEDS: ASPIRIN 81 MG ENTERIC TABLET PO (08:23)
[2024-06-09] MEDS: CITALOPRAM HYDROBROMIDE 20 MG TABLET 40 MG PO (08:23)
[2024-06-09] MEDS: TICAGRELOR 90 MG TABLET PO ×2 (08:24→20:14)
[2024-06-09] MEDS: ENOXAPARIN 40 MG/0.4 ML SYRINGE SUB-Q (08:24)
[2024-06-09] MEDS: FENOFIBRATE 160 MG TABLET PO (08:24)
[2024-06-09] MEDS: PANTOPRAZOLE SODIUM IV 40 MG VIAL IV PUSH ×2 (08:24→20:14)
[2024-06-09 08:37] LABS: Glucose Point of Care 152 mg/dl (65-105)
[2024-06-09] MEDS: DEXTROSE 5%/0.45% SOD CHL 1,000 ML 100 ML IV CONT (08:46)
[2024-06-09 09:37] LABS: Glucose Point of Care 151 mg/dl (65-105)
[2024-06-09] MEDS: metFORMIN HCL 500 MG TABLET 1000 MG PO ×2 (09:40→16:33)
[2024-06-09] MEDS: INSULIN GLARGINE (*BKC) 100 UNITS/ML 10 UNITS SUB-Q (10:40)
--- NOTE | 2024-06-09 11:16 | P.PNINT_ITS ---
Progress Note: A&P Assessment and Plan (1) Hypertriglyceridemia: Code(s): E78.1 - Pure hyperglyceridemia Status: Acute Assessment and Plan: Triglyceride levels were not detectable due to blood being lipemic, patient is well known to us at this does happen every time she is here -started patient on insulin infusion with D5 half-normal saline to prevent hypoglycemia -remains on insulin infusion -nephrology following -06/07: status post plasmapheresis x1 -triglycerides level down to 453 -insulin infusion will be discontinued, (2) Abdominal pain: Code(s): R10.9 - Unspecified abdominal pain Status: Acute Assessment and Plan: 06/07: Patient presented with abdominal pain, along with nausea vomiting, triglycerides are not readable, possibly due to blood being lipemic. Lipase could not be resulted due to the blood being lipemic -06/07: CT scan of the abdomen and pelvis: 1. No acute intra-abdominal/pelvic process.2. Mild left hydronephrosis likely related to chronic UPJ obstruction with unchanged 1-2 mm nonobstructing left renal stone but no evident obstructing stone or mass at the transition point at the ureteropelvic junction. -could be related to hypertriglyceridemia and/ or chronic pancreatitis -Pain control with Dilaudid -Zofran for nausea/vomiting (3) Nausea & vomiting: Code(s): R11.2 - Nausea with vomiting, unspecified Status: Acute Assessment and Plan: Likely related to pancreatitis, hypertriglyceridemia -continue anti emetics (4) Chronic pancreatitis: Onset Date: ~09/02/23 Qualifiers: Pancreatitis type: other Qualified Code(s): K86.1 - Other chronic pancreatitis Code(s): K86.1 - Other chronic pancreatitis Status: Chronic Assessment and Plan: History of chronic pancreatitis, has been admitted multiple times for hypertrigl yceridemia leading to pancreatitis -continue pain management -will restart pancreatic enzymes/Creon once patient able to tolerate PO (5) Type 2 diabetes mellitus: Qualifiers: 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 I have asked the patient to get her insulin pump from home. -Accu-Cheks and sliding scale insulin -diabetic diet -last hemoglobin A1c was 8.3 on 05/03/2024 Plan DVT prophylaxis: Lovenox Stress ulcer prophylaxis: Protonix Nutrition: Diabetic diet Code Status: Full code Critical Care Time Spent: 31 minutes Patient may be transferred to medical floor Discussed with patient updated her with the symptoms and plan of care. Patient has had this issue multiple times and is aware of the plan of care, she is aware that she will be getting insulin and D5 for now and we are trying to arrange for plasmapheresis. I answered all her questions Due to a high probability of clinically significant, life threatening deterioration, the patient required my highest level of preparedness to intervene emergently and I personally spent this critical care time directly and personally managing the patient. This critical care time included obtaining a history; examining the patient; pulse oximetry; ordering and review of studies; arranging urgent treatment with development of a management plan; evaluation of patient's response to treatment; frequent reassessment; and discussions with other providers. It was exclusive of separately billable procedures and treating other patients and teaching time. Please see Assessment and Plan section and the rest of the note for further information on patient assessment and treatment This dictation may have been done utilizing a voice recognition system. Attempts have been made to correct errors. However, there may be uncorrected grammatical, spelling, and recognitions errors present. Subjective Date/time seen: 06/09/24 11:16 Interval history: Reason for consult: Abdominal pain, nausea, vomiting, acute on chronic pancreatitis, hypertriglyceridemia 06/09/2024: Patient seen and examined the ICU, alert, awake, oriented. Denies any nausea, vomiting, abdominal pain at this time. Patient is hemodynamically stable, very good urine output, afebrile. Triglyceride levels down to 453. Tolerating some clear liquid diet Review of Systems Review of Systems: All systems reviewed & are unremarkable except as noted in HPI and below Exam Narrative: General: Pleasant female in no acute distress HEENT:? Pupils equal and reactive, sclera is clear, moist oral mucosa Neck:? Supple Respiratory:? Clear to auscultation bilaterally, no wheezing, adequate air entry Cardiac:? S1-S2 normal, regular rate and rhythm Abdomen:? Soft, epigastric tenderness, no guarding, normoactive bowel sounds, nondistended Extremities:? Trace edema, palpable pedal pulses Neuro:? Patient is awake, alert, oriented, nonfocal Skin:? Warm and dry Psych:? Normal mentation and affect Objective Data Vital Signs Vital Signs: Vital Signs - 24 hr 06/08/24 12:00 06/08/24 12:00 06/08/24 12:00 Temperature 97.8 F Pulse Rate 84 77 Respiratory Rate 14 Blood Pressure 119/75 Pulse Oximetry 100 97 Oxygen Delivery Room Air 06/08/24 14:00 06/08/24 14:00 06/08/24 16:00 Temperature 98.3 F 98.0 F Pulse Rate 70 71 85 Respiratory Rate 16 19 Blood Pressure 142/57 H 113/72 Pulse Oximetry 97 98 Oxygen Delivery 06/08/24 16:00 06/08/24 16:00 06/08/24 18:00 Temperature Pulse Rate 101 H 78 Respiratory Rate Blood Pressure Pulse Oximetry 100 Oxygen Delivery Room Air 06/08/24 18:00 06/08/24 20:00 06/08/24 20:00 Temperature 98.0 F Pulse Rate 70 81 Respiratory Rate 14 Blood Pressure 122/66 Pulse Oximetry 97 Oxygen Delivery Room Air 06/08/24 20:00 06/08/24 22:00 06/08/24 22:00 Temperature 97.6 F Pulse Rate 81 75 75 Respiratory Rate 17 12 Blood Pressure 128/72 128/79 Pulse Oximetry 98 96 Oxygen Delivery 06/09/24 00:00 06/09/24 00:00 06/09/24 00:00 Temperature 97.8 F Pulse Rate 83 83 Respiratory Rate 12 Blood Pressure 100/62 Pulse Oximetry 94 Oxygen Delivery Room Air 06/09/24 02:00 06/09/24 02:00 06/09/24 04:00 Temperature Pulse Rate 84 84 Respiratory Rate 13 Blood Pressure 96/71 L Pulse Oximetry 95 Oxygen Delivery Room Air 06/09/24 04:00 06/09/24 04:00 06/09/24 06:00 Temperature 97.9 F Pulse Rate 79 79 84 Respiratory Rate 12 Blood Pressure 107/70 Pulse Oximetry 96 Oxygen Delivery 06/09/24 06:00 06/09/24 08:00 06/09/24 08:00 Temperature 98.0 F Pulse Rate 84 82 82 Respiratory Rate 16 12 12 Blood Pressure 104/67 121/71 Pulse Oximetry 98 95 95 Oxygen Delivery Room Air 06/09/24 08:00 06/09/24 10:00 06/09/24 10:00 Temperature 97.8 F Pulse Rate 82 80 96 Respiratory Rate 11 L Blood Pressure 120/76 Pulse Oximetry 94 Oxygen Delivery Intake/Output Intake/Output: Intake & Output 06/06/24 06/07/24 06/08/24 06/09/24 23:59 23:59 23:59 23:59 Intake Total 7096.4 3336.0 1236.9 Output Total 1200 2000 1999 Balance 5896.4 1336.0 -763.1 Meds/Results Medications: Active Medications Generic Name Dose Route Start Last Admin Trade Name Freq PRN Reason Stop Dose Admin Acetaminophen 650 mg 06/07/24 07:00 06/07/24 08:24 Acetaminophen 325 Mg Tablet PO 650 mg Q4H PRN Administration Mild Pain (1-3) or Fever Alteplase, Recombinant 2 mg 06/07/24 11:55 Alteplase 2 Mg Vial (Cathflo) IV PUSH ONCE PRN Line Occlusion Lipase/Protease/Amylase 6 cap 06/08/24 12:00 06/09/24 08:22 Lipase/Amylase/Protease 12,000 Units Cap PO 6 cap TIDWM RAPHAEL Administration Aspirin 81 mg 06/09/24 09:00 06/09/24 08:23 Aspirin 81 Mg Enteric Tablet PO 81 mg QAM RAPHAEL Administration Atorvastatin Calcium 80 mg 06/07/24 21:00 06/08/24 20:16 Atorvastatin 40 Mg Tablet PO 80 mg HS RAPHAEL Administration Bupropion HCl 150 mg 06/08/24 21:00 06/08/24 20:16 Bupropion Hcl Sr (12 Hr) 150 Mg Tab PO 150 mg HS RAPHAEL Administration Citalopram Hydrobromide 40 mg 06/09/24 09:00 06/09/24 08:23 Citalopram Hydrobromide 20 Mg Tablet PO 40 mg DAILY RAPHAEL Administration Dextrose 12.5 gm 06/09/24 10:34 Dextrose 50% 25 Gm/50 Ml Syringe IV PUSH PRN PRN Hypoglycemia Protocol Diphenhydramine HCl 25 mg 06/08/24 10:21 06/08/24 20:28 Diphenhydramine Hcl Cap 25 Mg Capsule PO 25 mg Q6H PRN Administration Itching Docusate Sodium 100 mg 06/09/24 07:37 Docusate Sodium 100 Mg Capsule PO Q12HR PRN constipation Enoxaparin Sodium 40 mg 06/08/24 09:00 06/09/24 08:24 Enoxaparin 40 Mg/0.4 Ml Syringe SUB-Q 40 mg DAILY RAPHAEL Administration Fenofibrate 160 mg 06/07/24 09:00 06/09/24 08:24 Fenofibrate 160 Mg Tablet PO 160 mg DAILY RAPHAEL Administration Glucagon 1 mg 06/09/24 10:34 Glucagon For Inj 1 Mg Vial IM PRN PRN Hypoglycemia Protocol Glucose 15 gm 06/09/24 10:34 Glucose Oral Gel 15 Gm Of Glucse In 37.5 Gm Tube PO PRN PRN Hypoglycemia Protocol Hydromorphone HCl 1 mg 06/07/24 09:55 06/09/24 08:41 Hydromorphone Hcl Inj (*Crx) 1 Mg/Ml Syr IV PUSH 1 mg Q3H PRN Administration Pain Rated 7-10 Dextrose/Sodium Chloride 1,000 mls @ 100 mls/hr 06/07/24 02:30 06/09/24 08:46 Dextrose 5% Sodium Chloride 0.45% IV CONT 100 mls/hr .Q10H RAPHAEL Administration Insulin Human Regular 100 100 mls @ 1 mls/hr 06/07/24 05:50 06/09/24 09:35 units/ Sodium Chloride IV CONT 1 units/hr .Q24H RAPHAEL 1 mls/hr Infusion 1 UNITS/HR Dextrose 1,000 mls @ 100 mls/hr 06/09/24 10:34 Dextrose 5% 1,000 Ml IVPB PRN PRN Hypoglycemia Protocol Insulin Aspart 4 - 8 units 06/09/24 12:00 Insulin Aspart (*Bkc) 100 Units/Ml SUB-Q TIDWM RAPHAEL Protocol Insulin Aspart 2 - 4 units 06/09/24 21:00 Insulin Aspart (*Bkc) 100 Units/Ml SUB-Q HS RAPHAEL Protocol Levothyroxine Sodium 200 mcg 06/08/24 06:30 06/09/24 06:36 Levothyroxine Sodium 100 Mcg Tablet PO 200 mcg DAILY@0630 RAPHAEL Administration Lorazepam 1 mg 06/08/24 20:36 06/08/24 21:15 Lorazepam (*Crx) 1 Mg Tablet PO 1 mg QHS PRN Administration sleep Metformin HCl 1,000 mg 06/09/24 09:00 06/09/24 09:40 Metformin Hcl 500 Mg Tablet PO 1,000 mg BID RAPHAEL Administration Metoclopramide HCl 5 mg 06/08/24 12:00 06/09/24 05:00 Metoclopramide Hcl Inj 10 Mg/2 Ml Vial IV PUSH 5 mg Q6HR RAPHAEL Administration Ondansetron HCl 4 mg 06/07/24 07:00 06/08/24 20:23 Ondansetron Inj 4 Mg/2 Ml Vial IV PUSH 4 mg Q4H PRN Administration Nausea Pantoprazole Sodium 40 mg 06/07/24 09:00 06/09/24 08:24 Pantoprazole Sodium Iv 40 Mg Vial IV PUSH 40 mg Q12HR RAPHAEL Administration Ticagrelor 90 mg 06/07/24 09:00 06/09/24 08:24 Ticagrelor 90 Mg Tablet PO 90 mg Q12HR RAPHAEL Administration Trazodone HCl 200 mg 06/08/24 21:00 06/08/24 21:15 Trazodone Hcl 50 Mg Tablet PO 200 mg HS RAPHALE Administration Radiology Results: ITS Impressions Abdomen/Pelvis CT 06/07/24 10:25 IMPRESSION: 1. No acute intra-abdominal/pelvic process. 2. Mild left hydronephrosis likely related to chronic UPJ obstruction with unchanged 1-2 mm nonobstructing left renal stone but no evident obstructing stone or mass at the transition point at the ureteropelvic junction. Labs Labs: Laboratory Results - last 24 hr 06/08/24 06/08/24 06/08/24 11:42 12:26 13:34 WBC RBC Hgb Hct MCV MCH MCHC RDW Plt Count MPV Immature Gran % (Auto) Neut % (Auto) Lymph % (Auto) [place] % (Auto) Eos % (Auto) Baso % (Auto) Lymph # (Auto) [place] # (Auto) Eos # (Auto) Baso # (Auto) Abs Immat Gran (auto) Absolute Neuts (auto) Absolute Nucleated RBC Nucleated RBC % Sodium Potassium Chloride Carbon Dioxide Anion Gap BUN Creatinine Estim Creat Clear Calc Estimated GFR Glucose POC Capillary Glucose 140 H 138 H 147 H Calcium Phosphorus Magnesium Total Bilirubin AST ALT Alkaline Phosphatase Total Protein Albumin Triglycerides Lipase 06/08/24 06/08/24 06/08/24 14:39 15:45 16:51 WBC RBC Hgb Hct MCV MCH MCHC RDW Plt Count MPV Immature Gran % (Auto) Neut % (Auto) Lymph % (Auto) [place] % (Auto) Eos % (Auto) Baso % (Auto) Lymph # (Auto) [place] # (Auto) Eos # (Auto) Baso # (Auto) Abs Immat Gran (auto) Absolute Neuts (auto) Absolute Nucleated RBC Nucleated RBC % Sodium Potassium Chloride Carbon Dioxide Anion Gap BUN Creatinine Estim Creat Clear Calc Estimated GFR Glucose POC Capillary Glucose 152 H 132 H 165 H Calcium Phosphorus Magnesium Total Bilirubin AST ALT Alkaline Phosphatase Total Protein Albumin Triglycerides Lipase 06/08/24 06/08/24 06/08/24 17:30 18:13 18:20 WBC RBC Hgb Hct MCV MCH MCHC RDW Plt Count MPV Immature Gran % (Auto) Neut % (Auto) Lymph % (Auto) [place] % (Auto) Eos % (Auto) Baso % (Auto) Lymph # (Auto) [place] # (Auto) Eos # (Auto) Baso # (Auto) Abs Immat Gran (auto) Absolute Neuts (auto) Absolute Nucleated RBC Nucleated RBC % Sodium Potassium Chloride Carbon Dioxide Anion Gap BUN Creatinine Estim Creat Clear Calc Estimated GFR Glucose POC Capillary Glucose 143 H 201 H Calcium Phosphorus Magnesium Total Bilirubin AST ALT Alkaline Phosphatase Total Protein Albumin Triglycerides 702 H Lipase 06/08/24 06/08/24 06/08/24 19:20 20:09 21:15 WBC RBC Hgb Hct MCV MCH MCHC RDW Plt Count MPV Immature Gran % (Auto) Neut % (Auto) Lymph % (Auto) [place] % (Auto) Eos % (Auto) Baso % (Auto) Lymph # (Auto) [place] # (Auto) Eos # (Auto) Baso # (Auto) Abs Immat Gran (auto) Absolute Neuts (auto) Absolute Nucleated RBC Nucleated RBC % Sodium Potassium Chloride Carbon Dioxide Anion Gap BUN Creatinine Estim Creat Clear Calc Estimated GFR Glucose POC Capillary Glucose 165 H 177 H 151 H Calcium Phosphorus Magnesium Total Bilirubin AST ALT Alkaline Phosphatase Total Protein Albumin Triglycerides Lipase 06/08/24 06/08/24 06/09/24 22:23 23:29 01:02 WBC RBC Hgb Hct MCV MCH MCHC RDW Plt Count MPV Immature Gran % (Auto) Neut % (Auto) Lymph % (Auto) [place] % (Auto) Eos % (Auto) Baso % (Auto) Lymph # (Auto) [place] # (Auto) Eos # (Auto) Baso # (Auto) Abs Immat Gran (auto) Absolute Neuts (auto) Absolute Nucleated RBC Nucleated RBC % Sodium Potassium Chloride Carbon Dioxide Anion Gap BUN Creatinine Estim Creat Clear Calc Estimated GFR Glucose POC Capillary Glucose 154 H 149 H 165 H Calcium Phosphorus Magnesium Total Bilirubin AST ALT Alkaline Phosphatase Total Protein Albumin Triglycerides Lipase 06/09/24 06/09/24 06/09/24 02:30 03:25 04:40 WBC 5.9 RBC 3.65 L Hgb 10.7 L Hct 32.8 L MCV 89.9 MCH 29.3 MCHC 32.6 RDW 15.2 H Plt Count 210 MPV 9.0 Immature Gran % (Auto) 1.0 H Neut % (Auto) 62.7 Lymph % (Auto) 29.0 [place] % (Auto) 5.5 Eos % (Auto) 1.5 Baso % (Auto) 0.3 Lymph # (Auto) 1.70 [place] # (Auto) 0.3 Eos # (Auto) 0.1 Baso # (Auto) 0.0 Abs Immat Gran (auto) 0.06 H Absolute Neuts (auto) 3.7 Absolute Nucleated RBC 0.000 Nucleated RBC % 0.0 Sodium 138 Potassium 3.6 Chloride 106 Carbon Dioxide 23 Anion Gap 9 BUN 2 L Creatinine 0.52 L Estim Creat Clear Calc 123 Estimated GFR > 60 Glucose 158 H POC Capillary Glucose 218 H 226 H Calcium 8.6 Phosphorus 3.7 Magnesium 1.5 L Total Bilirubin 0.5 AST 16 ALT 12 Alkaline Phosphatase 35 L Total Protein 6.0 L Albumin 3.8 Triglycerides Lipase 37 06/09/24 06/09/24 06/09/24 04:41 04:43 06:34 WBC RBC Hgb Hct MCV MCH MCHC RDW Plt Count MPV Immature Gran % (Auto) Neut % (Auto) Lymph % (Auto) [place] % (Auto) Eos % (Auto) Baso % (Auto) Lymph # (Auto) [place] # (Auto) Eos # (Auto) Baso # (Auto) Abs Immat Gran (auto) Absolute Neuts (auto) Absolute Nucleated RBC Nucleated RBC % Sodium Potassium Chloride Carbon Dioxide Anion Gap BUN Creatinine Estim Creat Clear Calc Estimated GFR Glucose POC Capillary Glucose 164 H 164 H Calcium Phosphorus Magnesium Total Bilirubin AST ALT Alkaline Phosphatase Total Protein Albumin Triglycerides 453 H Lipase 06/09/24 06/09/24 06/09/24 07:30 07:40 08:35 WBC RBC Hgb Hct MCV MCH MCHC RDW Plt Count MPV Immature Gran % (Auto) Neut % (Auto) Lymph % (Auto) [place] % (Auto) Eos % (Auto) Baso % (Auto) Lymph # (Auto) [place] # (Auto) Eos # (Auto) Baso # (Auto) Abs Immat Gran (auto) Absolute Neuts (auto) Absolute Nucleated RBC Nucleated RBC % Sodium Potassium Chloride Carbon Dioxide Anion Gap BUN Creatinine Estim Creat Clear Calc Estimated GFR Glucose POC Capillary Glucose 161 H 156 H 152 H Calcium Phosphorus Magnesium Total Bilirubin AST ALT Alkaline Phosphatase Total Protein Albumin Triglycerides Lipase 06/09/24 09:34 WBC RBC Hgb Hct MCV MCH MCHC RDW Plt Count MPV Immature Gran % (Auto) Neut % (Auto) Lymph % (Auto) [place] % (Auto) Eos % (Auto) Baso % (Auto) Lymph # (Auto) [place] # (Auto) Eos # (Auto) Baso # (Auto) Abs Immat Gran (auto) Absolute Neuts (auto) Absolute Nucleated RBC Nucleated RBC % Sodium Potassium Chloride Carbon Dioxide Anion Gap BUN Creatinine Estim Creat Clear Calc Estimated GFR Glucose POC Capillary Glucose 151 H Calcium Phosphorus Magnesium Total Bilirubin AST ALT Alkaline Phosphatase Total Protein Albumin Triglycerides Lipase
[2024-06-09 11:36] LABS: Glucose Point of Care 129 mg/dl (65-105)
[2024-06-09 16:48] LABS: Glucose Point of Care 161 mg/dl (65-105)
[2024-06-09 20:07] LABS: Glucose Point of Care 166 mg/dl (65-105)
[2024-06-09] MEDS: traZODone HCL 50 MG TABLET 200 MG PO (20:13)
[2024-06-09] MEDS: ONDANSETRON INJ 4 MG/2 ML VIAL IV PUSH (20:14)
[2024-06-09] MEDS: LORazepam (*CRX) 1 MG TABLET PO (20:14)
[2024-06-09] MEDS: ATORVASTATIN 40 MG TABLET 80 MG PO (20:14)
[2024-06-09] MEDS: buPROPion HCL SR (12 HR) 150 MG TAB PO (20:14)
[2024-06-09] MEDS: diphenhydrAMINE HCl CAP 25 MG CAPSULE PO (20:14)
[2024-06-10] MEDS: HYDROmorphone HCL INJ (*CRX) 1 MG/ML SYR IV PUSH ×7 (03:00→22:04)
[2024-06-10] MEDS: ONDANSETRON INJ 4 MG/2 ML VIAL IV PUSH ×4 (03:01→22:04)
[2024-06-10 05:14] LABS: Basophils Percent Auto 0.3 % (0.2-1.2); Eosinophils Absolute Auto 0.1 K/mm3 (0-0.3); Eosinophils Percent Auto 1.6 % (0-4.4); Hematocrit 33.7 % (37.0-47.0); Hemoglobin 10.9 g/dL (12.0-15.0); Immature Granulocyte Absolute 0.06 K/mm3 (0.00-0.031); Lymphocytes Absolute Auto 1.73 K/mm3 (0.9-3.2); Lymphocytes Percent Auto 27.6 % (18.3-44.2); Mean Corpuscular HGB Conc 32.3 g/dl (32-36); Mean Corpuscular Hemoglobin 28.8 pg (26-34); Mean Corpuscular Volume 89.2 fl (80-100); Mean Platelet Volume 8.8 fl (7.4-10.4); Monocytes Absolute Auto 0.4 K/mm3 (0.1-0.6); Monocytes Percent Auto 6.1 % (2.6-8.5); Neutrophils Percent Auto 63.4 % (45.5-73.1); Platelet Count Result 209 k/mm3 (150-375); Red Blood Count 3.78 M/mm3 (4.2-5.4); Red Cell Distribution Width 15.1 % (11.5-14.5); White Blood Count 6.3 K/mm3 (4.5-10.0)
[2024-06-10 05:25] LABS: Triglycerides 409 mg/dL (<150)
[2024-06-10 05:29] LABS: Alanine Aminotransferase 15 U/L (6-35); Alkaline Phosphatase 48 U/L (38-126); Anion Gap 7 mmol/L (4-12); Aspartate Amino Transferase 19 U/L (14-36); Bilirubin,Total 0.7 mg/dL (0.2-1.3); Blood Urea Nitrogen 6 mg/dL (7-17); Calcium 8.9 mg/dL (8.4-10.2); Carbon Dioxide 28 mmol/L (22-30); Chloride 102 mmol/L (98-107); Estimated CRCL calculation 102 ml/min; Estimated Glomerular Filt Rate > 60; Glucose 126 mg/dL (65-110); Magnesium 1.5 mg/dL (1.6-2.3); Phosphorus 4.2 mg/dL (2.5-4.5); Sodium 137 mmol/L (137-145)
[2024-06-10] MEDS: LEVOTHYROXINE SODIUM 100 MCG TABLET 200 MCG PO (06:12)
[2024-06-10] MEDS: METOCLOPRAMIDE HCL INJ 10 MG/2 ML VIAL 5 MG IV PUSH ×4 (06:13→23:36)
[2024-06-10 07:52] LABS: Glucose Point of Care 135 mg/dl (65-105)
[2024-06-10 08:00] VITALS: BP 124/82; PULSE 89; PULSE 92; RESP 15; RESP 17; TEMP 36.6; O2SAT 98
[2024-06-10] MEDS: TICAGRELOR 90 MG TABLET PO ×2 (09:19→21:12)
[2024-06-10] MEDS: PANTOPRAZOLE SODIUM IV 40 MG VIAL IV PUSH ×2 (09:19→21:11)
[2024-06-10] MEDS: ENOXAPARIN 40 MG/0.4 ML SYRINGE SUB-Q (09:19)
[2024-06-10] MEDS: FENOFIBRATE 160 MG TABLET PO (09:19)
[2024-06-10] MEDS: CITALOPRAM HYDROBROMIDE 20 MG TABLET 40 MG PO (09:19)
[2024-06-10] MEDS: ASPIRIN 81 MG ENTERIC TABLET PO (09:20)
[2024-06-10] MEDS: metFORMIN HCL 500 MG TABLET 1000 MG PO ×2 (09:20→17:14)
[2024-06-10] MEDS: LIPASE/AMYLASE/PROTEASE 12,000 UNITS CAP 6 CAP PO ×3 (09:20→17:14)
[2024-06-10] MEDS: MAGNESIUM SULF 2 GM/WATER 50ML 2 GM/50 ML BAG IVPB (09:21)
[2024-06-10 11:59] LABS: Glucose Point of Care 152 mg/dl (65-105)
[2024-06-10] MEDS: diphenhydrAMINE HCl CAP 25 MG CAPSULE PO ×2 (12:21→21:11)
--- NOTE | 2024-06-10 13:01 | P.PNIM_ITS ---
Progress Note: A&P Assessment and Plan (1) Hypertriglyceridemia: Code(s): E78.1 - Pure hyperglyceridemia Status: Acute Assessment and Plan: Triglyceride levels were not detectable due to blood being lipemic, patient is well known to us at this does happen every time she is here -started patient on insulin infusion with D5 half-normal saline to prevent hypoglycemia -remains on insulin infusion -nephrology following -06/07: status post plasmapheresis x1 -triglycerides level down to 409 -patient to get insulin pump from home (2) Abdominal pain: Code(s): R10.9 - Unspecified abdominal pain Status: Acute Assessment and Plan: 06/07: Patient presented with abdominal pain, along with nausea vomiting, triglycerides are not readable, possibly due to blood being lipemic. Lipase could not be resulted due to the blood being lipemic -06/07: CT scan of the abdomen and pelvis: 1. No acute intra-abdominal/pelvic process.2. Mild left hydronephrosis likely related to chronic UPJ obstruction with unchanged 1-2 mm nonobstructing left renal stone but no evident obstructing stone or mass at the transition point at the ureteropelvic junction. -could be related to hypertriglyceridemia and/ or chronic pancreatitis -Pain control with Dilaudid -Zofran for nausea/vomiting (3) Nausea & vomiting: Code(s): R11.2 - Nausea with vomiting, unspecified Status: Acute Assessment and Plan: Likely related to pancreatitis, hypertriglyceridemia -continue anti emetics (4) Chronic pancreatitis: Onset Date: ~09/02/23 Qualifiers: Pancreatitis type: other Qualified Code(s): K86.1 - Other chronic pancreatitis Code(s): K86.1 - Other chronic pancreatitis Status: Chronic Assessment and Plan: History of chronic pancreatitis, has been admitted multiple times for hypertriglyceridemia leading to pancreatitis -continue pain management -will restart pancreatic enzymes/Creon once patient able to tolerate PO (5) Type 2 diabetes mellitus: Qualifiers: Diabetes mellitus intermediate teacher insulin use: with intermediate teacher use Diabetes mellitus complication status: without complication Qualified Code(s): E11.9 - Type 2 diabetes mellitus without complications; Z79.4 - senior care (current) use of insulin Code(s): E11.9 - Type 2 diabetes mellitus without complications Status: Acute Assessment and Plan: Currently on insulin infusion, will discontinue insulin infusion and give 1 dose of Lantus. I have asked the patient to get her insulin pump from home. -Accu-Cheks and sliding scale insulin -diabetic diet -last hemoglobin A1c was 8.3 on 05/03/2024 Plan DVT prophylaxis: Lovenox Stress ulcer prophylaxis: Protonix Nutrition: Diabetic diet Code Status: Full code Discussed with patient updated her with the symptoms and plan of care. Patient has had this issue multiple times and is aware of the plan of care, she is aware that she will be getting insulin and D5 for now and we are trying to arrange for plasmapheresis. I answered all her questions Due to a high probability of clinically significant, life threatening deterioration, the patient required my highest level of preparedness to intervene emergently and I personally spent this critical care time directly and personally managing the patient. This critical care time included obtaining a history; examining the patient; pulse oximetry; ordering and review of studies; arranging urgent treatment with development of a management plan; evaluation of patient's response to treatment; frequent reassessment; and discussions with other providers. It was exclusive of separately billable procedures and treating other patients and teaching time. Please see Assessment and Plan section and the rest of the note for further information on patient assessment and treatment This dictation may have been done utilizing a voice recognition system. Attempts have been made to correct errors. However, there may be uncorrected grammatical, spelling, and recognitions errors present. Subjective Date/time seen: 06/10/24 13:01 Interval history: Reason for consult: Abdominal pain, nausea, vomiting, acute on chronic pancreatitis, hypertriglyceridemia 06/10/2024: Patient seen and examined the ICU, alert, awake, oriented. Denies any nausea, vomiting, abdominal pain at this time. Patient is hemodynamically stable, very good urine output, afebrile. Triglyceride levels down to 409. Tolerating diet Review of Systems Review of Systems: All systems reviewed & are unremarkable except as noted in HPI and below Exam Narrative: General: Pleasant female in no acute distress HEENT:? Pupils equal and reactive, sclera is clear, moist oral mucosa Neck:? Supple Respiratory:? Clear to auscultation bilaterally, no wheezing, adequate air entry Cardiac:? S1-S2 normal, regular rate and rhythm Abdomen:? Soft, epigastric tenderness, no guarding, normoactive bowel sounds, nondistended Extremities:? Trace edema, palpable pedal pulses Neuro:? Patient is awake, alert, oriented, nonfocal Skin:? Warm and dry Psych:? Normal mentation and affect Objective Data Vital Signs Vital Signs: Vital Signs - 24 hr 06/09/24 16:00 06/09/24 19:52 06/09/24 23:31 Temperature 98.1 F 98.1 F Pulse Rate 97 97 89 Respiratory Rate 22 H 18 15 Blood Pressure 141/90 H 122/77 Pulse Oximetry 95 95 98 Oxygen Delivery Room Air 06/10/24 08:00 06/10/24 08:00 Temperature 97.9 F Pulse Rate 89 92 Respiratory Rate 15 17 Blood Pressure 124/82 Pulse Oximetry 98 98 Oxygen Delivery Room Air Intake/Output Intake/Output: Intake & Output 06/07/24 06/08/24 06/09/24 06/10/24 23:59 23:59 23:59 23:59 Intake Total 7096.4 3336.0 1476.9 370 Output Total 1200 2000 3700 750 Balance 5896.4 1336.0 -2223.1 -380 Meds/Results Medications: Active Medications Generic Name Dose Route Start Last Admin Trade Name Freq PRN Reason Stop Dose Admin Acetaminophen 650 mg 06/07/24 07:00 06/07/24 08:24 Acetaminophen 325 Mg Tablet PO 650 mg Q4H PRN Administration Mild Pain (1-3) or Fever Alteplase, Recombinant 2 mg 06/07/24 11:55 Alteplase 2 Mg Vial (Cathflo) IV PUSH ONCE PRN Line Occlusion Lipase/Protease/Amylase 6 cap 06/08/24 12:00 06/10/24 12:13 Lipase/Amylase/Protease 12,000 Units Cap PO 6 cap TIDWM RAPHAEL Administration Aspirin 81 mg 06/09/24 09:00 06/10/24 09:20 Aspirin 81 Mg Enteric Tablet PO 81 mg QAM RAPHAEL Administration Atorvastatin Calcium 80 mg 06/07/24 21:00 06/09/24 20:14 Atorvastatin 40 Mg Tablet PO 80 mg HS RAPHAEL Administration Bupropion HCl 150 mg 06/08/24 21:00 06/09/24 20:14 Bupropion Hcl Sr (12 Hr) 150 Mg Tab PO 150 mg HS RAPHAEL Administration Citalopram Hydrobromide 40 mg 06/09/24 09:00 06/10/24 09:19 Citalopram Hydrobromide 20 Mg Tablet PO 40 mg DAILY RAPHAEL Administration Dextrose 12.5 gm 06/09/24 10:34 Dextrose 50% 25 Gm/50 Ml Syringe IV PUSH PRN PRN Hypoglycemia Protocol Diphenhydramine HCl 25 mg 06/08/24 10:21 06/10/24 12:21 Diphenhydramine Hcl Cap 25 Mg Capsule PO 25 mg Q6H PRN Administration Itching Docusate Sodium 100 mg 06/09/24 07:37 Docusate Sodium 100 Mg Capsule PO Q12HR PRN constipation Enoxaparin Sodium 40 mg 06/08/24 09:00 06/10/24 09:19 Enoxaparin 40 Mg/0.4 Ml Syringe SUB-Q 40 mg DAILY RAPHAEL Administration Fenofibrate 160 mg 06/07/24 09:00 06/10/24 09:19 Fenofibrate 160 Mg Tablet PO 160 mg DAILY RAPHAEL Administration Glucagon 1 mg 06/09/24 10:34 Glucagon For Inj 1 Mg Vial IM PRN PRN Hypoglycemia Protocol Glucose 15 gm 06/09/24 10:34 Glucose Oral Gel 15 Gm Of Glucse In 37.5 Gm Tube PO PRN PRN Hypoglycemia Protocol Hydromorphone HCl 1 mg 06/07/24 09:55 06/10/24 12:13 Hydromorphone Hcl Inj (*Crx) 1 Mg/Ml Syr IV PUSH 1 mg Q3H PRN Administration Pain Rated 7-10 Dextrose 1,000 mls @ 100 mls/hr 06/09/24 10:34 Dextrose 5% 1,000 Ml IVPB PRN PRN Hypoglycemia Protocol Insulin Aspart 4 - 8 units 06/09/24 12:00 06/10/24 12:13 Insulin Aspart (*Bkc) 100 Units/Ml SUB-Q Not Given TIDWM RAPHAEL Protocol Insulin Aspart 2 - 4 units 06/09/24 21:00 06/09/24 20:22 Insulin Aspart (*Bkc) 100 Units/Ml SUB-Q Not Given HS RAPHAEL Protocol Levothyroxine Sodium 200 mcg 06/08/24 06:30 06/10/24 06:12 Levothyroxine Sodium 100 Mcg Tablet PO 200 mcg DAILY@0630 RAPHAEL Administration Lorazepam 1 mg 06/08/24 20:36 06/09/24 20:14 Lorazepam (*Crx) 1 Mg Tablet PO 1 mg QHS PRN Administration sleep Metformin HCl 1,000 mg 06/09/24 09:00 06/10/24 09:20 Metformin Hcl 500 Mg Tablet PO 1,000 mg BID RAPHAEL Administration Metoclopramide HCl 5 mg 06/08/24 12:00 06/10/24 12:13 Metoclopramide Hcl Inj 10 Mg/2 Ml Vial IV PUSH 5 mg Q6HR RAPHAEL Administration Ondansetron HCl 4 mg 06/07/24 07:00 06/10/24 09:19 Ondansetron Inj 4 Mg/2 Ml Vial IV PUSH 4 mg Q4H PRN Administration Nausea Pantoprazole Sodium 40 mg 06/07/24 09:00 06/10/24 09:19 Pantoprazole Sodium Iv 40 Mg Vial IV PUSH 40 mg Q12HR RAPHAEL Administration Ticagrelor 90 mg 06/07/24 09:00 06/10/24 09:19 Ticagrelor 90 Mg Tablet PO 90 mg Q12HR RAPHAEL Administration Trazodone HCl 200 mg 06/08/24 21:00 06/09/24 20:13 Trazodone Hcl 50 Mg Tablet PO 200 mg HS RAPHAEL Administration Radiology Results: ITS Impressions Abdomen/Pelvis CT 06/07/24 10:25 IMPRESSION: 1. No acute intra-abdominal/pelvic process. 2. Mild left hydronephrosis likely related to chronic UPJ obstruction with unchanged 1-2 mm nonobstructing left renal stone but no evident obstructing stone or mass at the transition point at the ureteropelvic junction. Labs Labs: Laboratory Results - last 24 hr 06/09/24 06/09/24 06/10/24 16:46 20:02 04:56 WBC 6.3 RBC 3.78 L Hgb 10.9 L Hct 33.7 L MCV 89.2 MCH 28.8 MCHC 32.3 RDW 15.1 H Plt Count 209 MPV 8.8 Immature Gran % (Auto) 1.0 H Neut % (Auto) 63.4 Lymph % (Auto) 27.6 [place] % (Auto) 6.1 Eos % (Auto) 1.6 Baso % (Auto) 0.3 Lymph # (Auto) 1.73 [place] # (Auto) 0.4 Eos # (Auto) 0.1 Baso # (Auto) 0.0 Abs Immat Gran (auto) 0.06 H Absolute Neuts (auto) 4.0 Absolute Nucleated RBC 0.000 Nucleated RBC % 0.0 Sodium 137 Potassium 4.0 Chloride 102 Carbon Dioxide 28 Anion Gap 7 BUN 6 L Creatinine 0.62 L Estim Creat Clear Calc 102 Estimated GFR > 60 Glucose 126 H POC Capillary Glucose 161 H 166 H Calcium 8.9 Phosphorus 4.2 Magnesium 1.5 L Total Bilirubin 0.7 AST 19 ALT 15 Alkaline Phosphatase 48 Total Protein 6.0 L Albumin 4.0 Triglycerides 409 H 06/10/24 06/10/24 07:48 11:46 WBC RBC Hgb Hct MCV MCH MCHC RDW Plt Count MPV Immature Gran % (Auto) Neut % (Auto) Lymph % (Auto) [place] % (Auto) Eos % (Auto) Baso % (Auto) Lymph # (Auto) [place] # (Auto) Eos # (Auto) Baso # (Auto) Abs Immat Gran (auto) Absolute Neuts (auto) Absolute Nucleated RBC Nucleated RBC % Sodium Potassium Chloride Carbon Dioxide Anion Gap BUN Creatinine Estim Creat Clear Calc Estimated GFR Glucose POC Capillary Glucose 135 H 152 H Calcium Phosphorus Magnesium Total Bilirubin AST ALT Alkaline Phosphatase Total Protein Albumin Triglycerides
--- NOTE | 2024-06-10 15:33 | PCPTNOTE ---
Per phone conversation with Dr. Castellano- patient has been independent with nursing and was independent with OT, okay to stop orders.
[2024-06-10 15:47] VITALS: BP 121/69; PULSE 91; RESP 17; TEMP 36.7; O2SAT 98
[2024-06-10 16:54] LABS: Glucose Point of Care 166 mg/dl (65-105)
[2024-06-10 20:00] VITALS: PULSE 78; RESP 18; O2SAT 98
[2024-06-10] MEDS: LORazepam (*CRX) 1 MG TABLET PO (21:12)
[2024-06-10] MEDS: traZODone HCL 50 MG TABLET 200 MG PO (21:12)
[2024-06-10] MEDS: ATORVASTATIN 40 MG TABLET 80 MG PO (21:12)
[2024-06-10] MEDS: buPROPion HCL SR (12 HR) 150 MG TAB PO (21:12)
--- NOTE | 2024-06-10 23:43 | PC.NURSE ---
Report given to Awilda OLGUIN, all patient belongings packed, patient to room 314-2.
[2024-06-11] VITALS: BP 152/81; PULSE 107; RESP 16; TEMP 36.3; O2SAT 98
[2024-06-11] MEDS: HYDROmorphone HCL INJ (*CRX) 1 MG/ML SYR IV PUSH ×6 (02:49→22:20)
[2024-06-11] MEDS: ONDANSETRON INJ 4 MG/2 ML VIAL IV PUSH ×2 (03:04→20:56)
[2024-06-11 05:22] VITALS: BP 95/54; PULSE 94; RESP 14; TEMP 36.1; O2SAT 97
[2024-06-11] MEDS: METOCLOPRAMIDE HCL INJ 10 MG/2 ML VIAL 5 MG IV PUSH ×4 (05:30→23:57)
[2024-06-11] MEDS: LEVOTHYROXINE SODIUM 100 MCG TABLET 200 MCG PO (05:31)
[2024-06-11 06:24] LABS: Basophils Percent Auto 0.4 % (0.2-1.2); Eosinophils Absolute Auto 0.1 K/mm3 (0-0.3); Eosinophils Percent Auto 1.2 % (0-4.4); Hematocrit 35.6 % (37.0-47.0); Hemoglobin 11.5 g/dL (12.0-15.0); Immature Granulocyte Absolute 0.06 K/mm3 (0.00-0.031); Immature Granulocyte Percent A 0.9 % (0-0.5); Lymphocytes Absolute Auto 1.49 K/mm3 (0.9-3.2); Lymphocytes Percent Auto 22.1 % (18.3-44.2); Mean Corpuscular HGB Conc 32.3 g/dl (32-36); Mean Corpuscular Hemoglobin 28.8 pg (26-34); Monocytes Absolute Auto 0.4 K/mm3 (0.1-0.6); Monocytes Percent Auto 5.9 % (2.6-8.5); Neutrophils Absolute Auto 4.7 K/mm3 (1.3-6.7); Neutrophils Percent Auto 69.5 % (45.5-73.1); Platelet Count Result 236 k/mm3 (150-375); Red Cell Distribution Width 15.1 % (11.5-14.5); White Blood Count 6.8 K/mm3 (4.5-10.0)
[2024-06-11 06:36] LABS: Alanine Aminotransferase 15 U/L (6-35); Albumin Level 4.1 g/dL (3.5-5.1); Alkaline Phosphatase 45 U/L (38-126); Anion Gap 11 mmol/L (4-12); Aspartate Amino Transferase 20 U/L (14-36); Bilirubin,Total 0.7 mg/dL (0.2-1.3); Blood Urea Nitrogen 9 mg/dL (7-17); Calcium 9.2 mg/dL (8.4-10.2); Carbon Dioxide 28 mmol/L (22-30); Chloride 99 mmol/L (98-107); Estimated CRCL calculation 73 ml/min; Estimated Glomerular Filt Rate > 60; Glucose 117 mg/dL (65-110); Magnesium 1.6 mg/dL (1.6-2.3); Phosphorus 4.9 mg/dL (2.5-4.5); Potassium 3.7 mmol/L (3.4-5.0); Sodium 138 mmol/L (137-145); Triglycerides 485 mg/dL (<150)
[2024-06-11 06:45] VITALS: BP 100/58
[2024-06-11 08:09] LABS: Glucose Point of Care 123 mg/dl (65-105)
[2024-06-11] MEDS: CITALOPRAM HYDROBROMIDE 20 MG TABLET 40 MG PO (09:35)
[2024-06-11] MEDS: TICAGRELOR 90 MG TABLET PO ×2 (09:35→20:42)
[2024-06-11] MEDS: ASPIRIN 81 MG ENTERIC TABLET PO (09:35)
[2024-06-11] MEDS: PANTOPRAZOLE SODIUM IV 40 MG VIAL IV PUSH ×2 (09:35→20:42)
[2024-06-11] MEDS: metFORMIN HCL 500 MG TABLET 1000 MG PO ×2 (09:35→16:35)
[2024-06-11] MEDS: ENOXAPARIN 40 MG/0.4 ML SYRINGE SUB-Q (09:35)
[2024-06-11] MEDS: FENOFIBRATE 160 MG TABLET PO (09:57)
[2024-06-11] MEDS: LIPASE/AMYLASE/PROTEASE 12,000 UNITS CAP 6 CAP PO ×3 (09:57→16:35)
[2024-06-11 11:50] LABS: Glucose Point of Care 157 mg/dl (65-105)
--- NOTE | 2024-06-11 11:53 | PM.IMPN ---
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 Code(s): E11.9 - Type 2 diabetes mellitus without complications Status: Acute (2) Hyperglycemia: Code(s): R73.9 - Hyperglycemia, unspecified Status: Acute (3) Hypertriglyceridemia: Code(s): E78.1 - Pure hyperglyceridemia Status: Acute Plan (1) Hypertriglyceridemia: Code(s): E78.1 - Pure hyperglyceridemia Status: Acute Assessment and Plan: Triglyceride levels were not detectable due to blood being lipemic, patient is well known to us at this does happen every time she is here -started patient on insulin infusion with D5 half-normal saline to prevent hypoglycemia -remains on insulin infusion -nephrology following -06/07: status post plasmapheresis x1 -triglycerides level down to 409 -patient to get insulin pump from home (2) Abdominal pain: Code(s): R10.9 - Unspecified abdominal pain Status: Acute Assessment and Plan: 06/07: Patient presented with abdominal pain, along with nausea vomiting, triglycerides are not readable, possibly due to blood being lipemic. Lipase could not be resulted due to the blood being lipemic -06/07: CT scan of the abdomen and pelvis: 1. No acute intra-abdominal/pelvic process.2. Mild left hydronephrosis likely related to chronic UPJ obstruction with unchanged 1-2 mm nonobstructing left renal stone but no evident obstructing stone or mass at the transition point at the ureteropelvic junction. Flare up chronic pancreatitis due to hypertriglyceridemia Continue Dilaudid IV p.r.n., encourage patient stop using narcotic medication Patient still has nausea without vomiting Continue Zofran for nausea/vomiting (3) Nausea & vomiting: Code(s): R11.2 - Nausea with vomiting, unspecified Status: Acute Assessment and Plan: Likely related to pancreatitis, hypertriglyceridemia -continue anti emetics Poor intake (4) Chronic pancreatitis: Onset Date: ~09/02/23 Qualifiers: Pancreatitis type: other Qualified Code(s): K86.1 - Other chronic pancreatitis Code(s): K86.1 - Other chronic pancreatitis Status: Chronic Assessment and Plan: History of chronic pancreatitis, has been admitted multiple times for hypertriglyceridemia leading to pancreatitis -continue pain management -will restart pancreatic enzymes/Creon once patient able to tolerate PO (5) Type 2 diabetes mellitus: Qualifiers: 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 -Accu-Cheks and sliding scale insulin -diabetic diet -last hemoglobin A1c was 8.3 on 05/03/2024 Plan DVT prophylaxis: Lovenox Stress ulcer prophylaxis: Protonix Nutrition: Diabetic diet Code Status: Full code Subjective Date/time seen: 06/11/24 11:53 Interval history: I saw examined the patient today, patient still has severe abdomen pain, need frequent narcotic medication IV, patient feel nauseous, denies vomiting, poor appetite. Patient is afebrile, blood pressure stable Exam Narrative: GENERAL: Ill-appearing in no acute distress. Obesity - EYES: EOMI. Anicteric. - HENT: Moist mucous membranes. - LUNGS: Clear to auscultation bilaterally, no wheezing, rhonchi, or rales. - CARDIOVASCULAR: Regular rate and rhythm. No murmur. No JVD. - ABDOMEN: Soft, mid abdominal tender and non-distended. No palpable masses. - EXTREMITIES: No edema. Peripheral pulses 2+. Non-tender. - NEUROLOGIC: No focal neurological deficits. CN II-XII grossly intact. - PSYCHIATRIC: Awake, Alert and oriented x 3. Appropriate mood and affect. - SKIN: No rashes or lesions. Warm. - LYMPH: No cervical lymphadenopathy. Objective Data Vital Signs Vital Signs: Vital Signs - 24 hr 06/10/24 15:47 06/10/24 20:00 06/11/24 00:00 Temperature 98.0 F 97.3 F L Pulse Rate 91 78 107 H Respiratory Rate 17 18 16 Blood Pressure 121/69 152/81 H Pulse Oximetry 98 98 98 Oxygen Delivery Room Air 06/11/24 05:22 06/11/24 06:45 Temperature 97.0 F L Pulse Rate 94 Respiratory Rate 14 Blood Pressure 95/54 L 100/58 L Pulse Oximetry 97 Oxygen Delivery Intake/Output Intake/Output: Intake & Output 06/08/24 06/09/24 06/10/24 06/11/24 23:59 23:59 23:59 23:59 Intake Total 3336.0 1476.9 830 830 Output Total 1999 3700 2350 Balance 1336.0 -2223.1 -1520 830 Meds/Results Medications: Active Medications Generic Name Dose Route Start Last Admin Trade Name Freq PRN Reason Stop Dose Admin Acetaminophen 650 mg 06/07/24 07:00 06/07/24 08:24 Acetaminophen 325 Mg Tablet PO 650 mg Q4H PRN Administration Mild Pain (1-3) or Fever Alteplase, Recombinant 2 mg 06/07/24 11:55 Alteplase 2 Mg Vial (Cathflo) IV PUSH ONCE PRN Line Occlusion Lipase/Protease/Amylase 6 cap 06/08/24 12:00 06/11/24 09:57 Lipase/Amylase/Protease 12,000 Units Cap PO 6 cap TIDWM RAPHAEL Administration Aspirin 81 mg 06/09/24 09:00 06/11/24 09:35 Aspirin 81 Mg Enteric Tablet PO 81 mg QAM RAPHAEL Administration Atorvastatin Calcium 80 mg 06/07/24 21:00 06/10/24 21:12 Atorvastatin 40 Mg Tablet PO 80 mg HS RAPHAEL Administration Bupropion HCl 150 mg 06/08/24 21:00 06/10/24 21:12 Bupropion Hcl Sr (12 Hr) 150 Mg Tab PO 150 mg HS RAPHAEL Administration Citalopram Hydrobromide 40 mg 06/09/24 09:00 06/11/24 09:35 Citalopram Hydrobromide 20 Mg Tablet PO 40 mg DAILY RAPHAEL Administration Dextrose 12.5 gm 06/09/24 10:34 Dextrose 50% 25 Gm/50 Ml Syringe IV PUSH PRN PRN Hypoglycemia Protocol Diphenhydramine HCl 25 mg 06/08/24 10:21 06/10/24 21:11 Diphenhydramine Hcl Cap 25 Mg Capsule PO 25 mg Q6H PRN Administration Itching Docusate Sodium 100 mg 06/09/24 07:37 Docusate Sodium 100 Mg Capsule PO Q12HR PRN constipation Enoxaparin Sodium 40 mg 06/08/24 09:00 06/11/24 09:35 Enoxaparin 40 Mg/0.4 Ml Syringe SUB-Q 40 mg DAILY RAPHAEL Administration Fenofibrate 160 mg 06/07/24 09:00 06/11/24 09:57 Fenofibrate 160 Mg Tablet PO 160 mg DAILY RAPHAEL Administration Glucagon 1 mg 06/09/24 10:34 Glucagon For Inj 1 Mg Vial IM PRN PRN Hypoglycemia Protocol Glucose 15 gm 06/09/24 10:34 Glucose Oral Gel 15 Gm Of Glucse In 37.5 Gm Tube PO PRN PRN Hypoglycemia Protocol Hydromorphone HCl 1 mg 06/07/24 09:55 06/11/24 09:40 Hydromorphone Hcl Inj (*Crx) 1 Mg/Ml Syr IV PUSH 1 mg Q3H PRN Administration Pain Rated 7-10 Dextrose 1,000 mls @ 100 mls/hr 06/09/24 10:34 Dextrose 5% 1,000 Ml IVPB PRN PRN Hypoglycemia Protocol Insulin Aspart 4 - 8 units 06/09/24 12:00 06/11/24 09:34 Insulin Aspart (*Bkc) 100 Units/Ml SUB-Q Not Given TIDWM RAPHAEL Protocol Insulin Aspart 2 - 4 units 06/09/24 21:00 06/10/24 21:41 Insulin Aspart (*Bkc) 100 Units/Ml SUB-Q Not Given HS RAPHAEL Protocol Levothyroxine Sodium 200 mcg 06/08/24 06:30 06/11/24 05:31 Levothyroxine Sodium 100 Mcg Tablet PO 200 mcg DAILY@0630 RAPHAEL Administration Lorazepam 1 mg 06/08/24 20:36 06/10/24 21:12 Lorazepam (*Crx) 1 Mg Tablet PO 1 mg QHS PRN Administration sleep Metformin HCl 1,000 mg 06/09/24 09:00 06/11/24 09:35 Metformin Hcl 500 Mg Tablet PO 1,000 mg BID RAPHAEL Administration Metoclopramide HCl 5 mg 06/08/24 12:00 06/11/24 05:30 Metoclopramide Hcl Inj 10 Mg/2 Ml Vial IV PUSH 5 mg Q6HR RAPHAEL Administration Ondansetron HCl 4 mg 06/07/24 07:00 06/11/24 03:04 Ondansetron Inj 4 Mg/2 Ml Vial IV PUSH 4 mg Q4H PRN Administration Nausea Pantoprazole Sodium 40 mg 06/07/24 09:00 06/11/24 09:35 Pantoprazole Sodium Iv 40 Mg Vial IV PUSH 40 mg Q12HR RAPHAEL Administration Ticagrelor 90 mg 06/07/24 09:00 06/11/24 09:35 Ticagrelor 90 Mg Tablet PO 90 mg Q12HR RAPHAEL Administration Trazodone HCl 200 mg 06/08/24 21:00 06/10/24 21:12 Trazodone Hcl 50 Mg Tablet PO 200 mg HS RAPHAEL Administration Radiology Results: ITS Impressions Abdomen/Pelvis CT 06/07/24 10:25 IMPRESSION: 1. No acute intra-abdominal/pelvic process. 2. Mild left hydronephrosis likely related to chronic UPJ obstruction with unchanged 1-2 mm nonobstructing left renal stone but no evident obstructing stone or mass at the transition point at the ureteropelvic junction. Labs Labs: Laboratory Results - last 24 hr 06/10/24 06/10/24 06/11/24 11:46 16:49 05:35 WBC 6.8 RBC 4.00 L Hgb 11.5 L Hct 35.6 L MCV 89.0 MCH 28.8 MCHC 32.3 RDW 15.1 H Plt Count 236 MPV 9.0 Immature Gran % (Auto) 0.9 H Neut % (Auto) 69.5 Lymph % (Auto) 22.1 [place] % (Auto) 5.9 Eos % (Auto) 1.2 Baso % (Auto) 0.4 Lymph # (Auto) 1.49 [place] # (Auto) 0.4 Eos # (Auto) 0.1 Baso # (Auto) 0.0 Abs Immat Gran (auto) 0.06 H Absolute Neuts (auto) 4.7 Absolute Nucleated RBC 0.000 Nucleated RBC % 0.0 Sodium 138 Potassium 3.7 Chloride 99 Carbon Dioxide 28 Anion Gap 11 BUN 9 Creatinine 0.91 Estim Creat Clear Calc 73 Estimated GFR > 60 Glucose 117 H POC Capillary Glucose 152 H 166 H Calcium 9.2 Phosphorus 4.9 H Magnesium 1.6 Total Bilirubin 0.7 AST 20 ALT 15 Alkaline Phosphatase 45 Total Protein 6.0 L Albumin 4.1 Triglycerides 485 H 06/11/24 06/11/24 07:49 11:28 WBC RBC Hgb Hct MCV MCH MCHC RDW Plt Count MPV Immature Gran % (Auto) Neut % (Auto) Lymph % (Auto) [place] % (Auto) Eos % (Auto) Baso % (Auto) Lymph # (Auto) [place] # (Auto) Eos # (Auto) Baso # (Auto) Abs Immat Gran (auto) Absolute Neuts (auto) Absolute Nucleated RBC Nucleated RBC % Sodium Potassium Chloride Carbon Dioxide Anion Gap BUN Creatinine Estim Creat Clear Calc Estimated GFR Glucose POC Capillary Glucose 123 H 157 H Calcium Phosphorus Magnesium Total Bilirubin AST ALT Alkaline Phosphatase Total Protein Albumin Triglycerides
[2024-06-11 14:00] VITALS: BP 118/73; PULSE 84; RESP 18; TEMP 36.2; O2SAT 98
[2024-06-11] MEDS: HYDROmorphone HCL INJ (*CRX) 1 MG/ML SYR 0.5 MG IV PUSH (16:36)
[2024-06-11 17:01] LABS: Glucose Point of Care 124 mg/dl (65-105)
[2024-06-11 20:35] VITALS: BP 166/72; PULSE 106; RESP 16; TEMP 36.3; O2SAT 98
[2024-06-11] MEDS: buPROPion HCL SR (12 HR) 150 MG TAB PO (20:42)
[2024-06-11] MEDS: ATORVASTATIN 40 MG TABLET 80 MG PO (20:42)
[2024-06-11] MEDS: LORazepam (*CRX) 1 MG TABLET PO (20:42)
[2024-06-11] MEDS: traZODone HCL 50 MG TABLET 200 MG PO (20:42)
[2024-06-11 22:00] LABS: Glucose Point of Care 155 mg/dl (65-105)
[2024-06-12] MEDS: HYDROmorphone HCL INJ (*CRX) 1 MG/ML SYR IV PUSH ×7 (01:52→23:54)
[2024-06-12] MEDS: ONDANSETRON INJ 4 MG/2 ML VIAL IV PUSH ×2 (02:10→20:19)
[2024-06-12 05:45] VITALS: BP 106/67; PULSE 89; RESP 20; TEMP 36.8; O2SAT 93
[2024-06-12] MEDS: LEVOTHYROXINE SODIUM 100 MCG TABLET 200 MCG PO (05:59)
[2024-06-12] MEDS: METOCLOPRAMIDE HCL INJ 10 MG/2 ML VIAL 5 MG IV PUSH ×4 (06:00→23:54)
[2024-06-12 08:14] LABS: Glucose Point of Care 116 mg/dl (65-105)
[2024-06-12] MEDS: ENOXAPARIN 40 MG/0.4 ML SYRINGE SUB-Q (09:26)
[2024-06-12] MEDS: PANTOPRAZOLE SODIUM IV 40 MG VIAL IV PUSH (09:26)
[2024-06-12] MEDS: CITALOPRAM HYDROBROMIDE 20 MG TABLET 40 MG PO (09:27)
[2024-06-12] MEDS: ASPIRIN 81 MG ENTERIC TABLET PO (09:27)
[2024-06-12] MEDS: LIPASE/AMYLASE/PROTEASE 12,000 UNITS CAP 6 CAP PO ×3 (09:27→16:40)
[2024-06-12] MEDS: TICAGRELOR 90 MG TABLET PO ×2 (09:27→20:16)
[2024-06-12] MEDS: FENOFIBRATE 160 MG TABLET PO (09:27)
[2024-06-12] MEDS: metFORMIN HCL 500 MG TABLET 1000 MG PO ×2 (09:27→16:40)
--- NOTE | 2024-06-12 12:34 | P.PNIM_ITS ---
Progress Note: A&P Assessment and Plan (1) Type 2 diabetes mellitus: Qualifiers: Diabetes mellitus computer terminal operator insulin use: with mcc use Diabetes mellitus complication status: without complication Qualified Code(s): E11.9 - Type 2 diabetes mellitus without complications; Z79.4 - long term care pharmacist (current) use of insulin Code(s): E11.9 - Type 2 diabetes mellitus without complications Status: Acute (2) Hyperglycemia: Code(s): R73.9 - Hyperglycemia, unspecified Status: Acute (3) Hypertriglyceridemia: Code(s): E78.1 - Pure hyperglyceridemia Status: Acute Plan (1) Hypertriglyceridemia: Code(s): E78.1 - Pure hyperglyceridemia Status: Acute Assessment and Plan: Triglyceride levels were not detectable due to blood being lipemic, patient is well known to us at this does happen every time she is here -started patient on insulin infusion with D5 half-normal saline to prevent hypoglycemia -remains on insulin infusion -nephrology following -06/07: status post plasmapheresis x1 -triglycerides level down to 409 -patient to get insulin pump from home (2) Abdominal pain: Code(s): R10.9 - Unspecified abdominal pain Status: Acute Assessment and Plan: 06/07: Patient presented with abdominal pain, along with nausea vomiting, triglycerides are not readable, possibly due to blood being lipemic. Lipase could not be resulted due to the blood being lipemic -06/07: CT scan of the abdomen and pelvis: 1. No acute intra-abdominal/pelvic process.2. Mild left hydronephrosis likely related to chronic UPJ obstruction with unchanged 1-2 mm nonobstructing left renal stone but no evident obstructing stone or mass at the transition point at the ureteropelvic junction. Flare up chronic pancreatitis due to hypertriglyceridemia Continue Dilaudid IV p.r.n., encourage patient stop using narcotic medication Patient still has nausea without vomiting Continue Zofran for nausea/vomiting Patient need less necrotic medication today, appetite improving. (3) Nausea & vomiting: Code(s): R11.2 - Nausea with vomiting, unspecified Status: Acute Assessment and Plan: Likely related to pancreatitis, hypertriglyceridemia and also likely gastroparesis -continue anti emetics Poor intake, but appetite is improving (4) Chronic pancreatitis: Onset Date: ~09/02/23 Qualifiers: Pancreatitis type: other Qualified Code(s): K86.1 - Other chronic pancreatitis Code(s): K86.1 - Other chronic pancreatitis Status: Chronic Assessment and Plan: History of chronic pancreatitis, has been admitted multiple times for hypertriglyceridemia leading to pancreatitis Abdomen pain is subsiding. Continue pain management Continue pancreatic enzymes (5) Type 2 diabetes mellitus: Qualifiers: Diabetes mellitus mcc insulin use: with computer terminal operator use Diabetes mellitus complication status: without complication Qualified Code(s): E11.9 - Type 2 diabetes mellitus without complications; Z79.4 - long-term (current) use of insulin Code(s): E11.9 - Type 2 diabetes mellitus without complications Status: Acute Assessment and Plan: Received insulin infusion, Transition to insulin pump from home. -Accu-Cheks and sliding scale insulin -diabetic diet hemoglobin A1c was 8.3 on 05/03/2024 Glucose is well controlled in the target range Plan DVT prophylaxis: Lovenox Stress ulcer prophylaxis: Protonix Nutrition: Diabetic diet Code Status: Full code Subjective Date/time seen: 06/12/24 12:34 Interval history: I saw examined the patient today, patient still has severe abdomen pain, but is improving, patient needs necrotic less frequently today, patient feel nauseous, denies vomiting, poor appetite. Appetite is also improving. Patient is afebrile, blood pressure stable Exam Narrative: GENERAL: Ill-appearing in no acute distress. Obesity - EYES: EOMI. Anicteric. - HENT: Moist mucous membranes. - LUNGS: Clear to auscultation bilateral ly, no wheezing, rhonchi, or rales. - CARDIOVASCULAR: Regular rate and rhyth m. No murmur. No JVD. - ABDOMEN: Soft, mid abdominal tender an d non-distended. No palpable masses. - EXTREMITIES: No edema. Peripheral puls es 2+. Non-tender. - NEUROLOGIC: No focal neurological defi cits. CN II-XII grossly intact. - PSYCHIATRIC: Awake, Alert and oriented x 3. Appropriate mood and affect. - SKIN: No rashes or lesions. Warm. - LYMPH: No cervical lymphadenopathy. Objective Data Vital Signs Vital Signs: Vital Signs - 24 hr 06/11/24 14:00 06/11/24 20:00 06/11/24 20:35 Temperature 97.1 F L 97.4 F L Pulse Rate 84 106 H Respiratory Rate 18 16 Blood Pressure 118/73 166/72 H Pulse Oximetry 98 98 Oxygen Delivery Room Air 06/12/24 05:45 Temperature 98.3 F Pulse Rate 89 Respiratory Rate 20 Blood Pressure 106/67 Pulse Oximetry 93 Oxygen Delivery Intake/Output Intake/Output: Intake & Output 06/09/24 06/10/24 06/11/24 06/12/24 23:59 23:59 23:59 23:59 Intake Total 1476.9 830 1230 658 Output Total 3700 2350 Balance -2223.1 -1520 1230 658 Meds/Results Medications: Active Medications Generic Name Dose Route Start Last Admin Trade Name Freq PRN Reason Stop Dose Admin Acetaminophen 650 mg 06/07/24 07:00 06/07/24 08:24 Acetaminophen 325 Mg Tablet PO 650 mg Q4H PRN Administration Mild Pain (1-3) or Fever Alteplase, Recombinant 2 mg 06/07/24 11:55 Alteplase 2 Mg Vial (Cathflo) IV PUSH ONCE PRN Line Occlusion Lipase/Protease/Amylase 6 cap 06/08/24 12:00 06/12/24 09:27 Lipase/Amylase/Protease 12,000 Units Cap PO 6 cap TIDWM RAPHAEL Administration Aspirin 81 mg 06/09/24 09:00 06/12/24 09:27 Aspirin 81 Mg Enteric Tablet PO 81 mg QAM RAPHAEL Administration Atorvastatin Calcium 80 mg 06/07/24 21:00 06/11/24 20:42 Atorvastatin 40 Mg Tablet PO 80 mg HS RAPHAEL Administration Bupropion HCl 150 mg 06/08/24 21:00 06/11/24 20:42 Bupropion Hcl Sr (12 Hr) 150 Mg Tab PO 150 mg HS RAPHAEL Administration Citalopram Hydrobromide 40 mg 06/09/24 09:00 06/12/24 09:27 Citalopram Hydrobromide 20 Mg Tablet PO 40 mg DAILY RAPHAEL Administration Dextrose 12.5 gm 06/09/24 10:34 Dextrose 50% 25 Gm/50 Ml Syringe IV PUSH PRN PRN Hypoglycemia Protocol Diphenhydramine HCl 25 mg 06/08/24 10:21 06/10/24 21:11 Diphenhydramine Hcl Cap 25 Mg Capsule PO 25 mg Q6H PRN Administration Itching Docusate Sodium 100 mg 06/09/24 07:37 Docusate Sodium 100 Mg Capsule PO Q12HR PRN constipation Enoxaparin Sodium 40 mg 06/08/24 09:00 06/12/24 09:26 Enoxaparin 40 Mg/0.4 Ml Syringe SUB-Q 40 mg DAILY RAPHAEL Administration Fenofibrate 160 mg 06/07/24 09:00 06/12/24 09:27 Fenofibrate 160 Mg Tablet PO 160 mg DAILY RAPHAEL Administration Glucagon 1 mg 06/09/24 10:34 Glucagon For Inj 1 Mg Vial IM PRN PRN Hypoglycemia Protocol Glucose 15 gm 06/09/24 10:34 Glucose Oral Gel 15 Gm Of Glucse In 37.5 Gm Tube PO PRN PRN Hypoglycemia Protocol Hydromorphone HCl 1 mg 06/07/24 09:55 06/12/24 09:31 Hydromorphone Hcl Inj (*Crx) 1 Mg/Ml Syr IV PUSH 1 mg Q3H PRN Administration Pain Rated 7-10 Dextrose 1,000 mls @ 100 mls/hr 06/09/24 10:34 Dextrose 5% 1,000 Ml IVPB PRN PRN Hypoglycemia Protocol Insulin Aspart 4 - 8 units 06/09/24 12:00 06/12/24 08:59 Insulin Aspart (*Bkc) 100 Units/Ml SUB-Q Not Given TIDWM RAPHAEL Protocol Insulin Aspart 2 - 4 units 06/09/24 21:00 06/11/24 20:42 Insulin Aspart (*Bkc) 100 Units/Ml SUB-Q Not Given [facility] Protocol Levothyroxine Sodium 200 mcg 06/08/24 06:30 06/12/24 05:59 Levothyroxine Sodium 100 Mcg Tablet PO 200 mcg DAILY@0630 RAPHAEL Administration Lorazepam 1 mg 06/08/24 20:36 06/11/24 20:42 Lorazepam (*Crx) 1 Mg Tablet PO 1 mg QHS PRN Administration sleep Metformin HCl 1,000 mg 06/09/24 09:00 06/12/24 09:27 Metformin Hcl 500 Mg Tablet PO 1,000 mg BID RAPHAEL Administration Metoclopramide HCl 5 mg 06/08/24 12:00 06/12/24 06:00 Metoclopramide Hcl Inj 10 Mg/2 Ml Vial IV PUSH 5 mg Q6HR RAPHAEL Administration Ondansetron HCl 4 mg 06/07/24 07:00 06/12/24 02:10 Ondansetron Inj 4 Mg/2 Ml Vial IV PUSH 4 mg Q4H PRN Administration Nausea Pantoprazole Sodium 40 mg 06/12/24 21:00 Pantoprazole 40 Mg Tablet PO Q12HR RAPHAEL Ticagrelor 90 mg 06/07/24 09:00 06/12/24 09:27 Ticagrelor 90 Mg Tablet PO 90 mg Q12HR RAPHAEL Administration Trazodone HCl 200 mg 06/08/24 21:00 06/11/24 20:42 Trazodone Hcl 50 Mg Tablet PO 200 mg HS RAPHAEL Administration Radiology Results: ITS Impressions Abdomen/Pelvis CT 06/07/24 10:25 IMPRESSION: 1. No acute intra-abdominal/pelvic process. 2. Mild left hydronephrosis likely related to chronic UPJ obstruction with unchanged 1-2 mm nonobstructing left renal stone but no evident obstructing stone or mass at the transition point at the ureteropelvic junction. Labs Labs: Laboratory Results - last 24 hr 06/11/24 06/11/24 06/12/24 16:55 20:37 08:03 POC Capillary Glucose 124 H 155 H 116 H
[2024-06-12 14:00] VITALS: BP 102/78; PULSE 99; RESP 20; TEMP 36.6; O2SAT 96
[2024-06-12] MEDS: ATORVASTATIN 40 MG TABLET 80 MG PO (20:16)
[2024-06-12] MEDS: buPROPion HCL SR (12 HR) 150 MG TAB PO (20:16)
[2024-06-12] MEDS: traZODone HCL 50 MG TABLET 200 MG PO (20:16)
[2024-06-12] MEDS: PANTOPRAZOLE 40 MG TABLET PO (20:17)
[2024-06-12] MEDS: diphenhydrAMINE HCl CAP 25 MG CAPSULE PO (20:19)
[2024-06-12] MEDS: LORazepam (*CRX) 1 MG TABLET PO (20:19)
[2024-06-12 21:28] LABS: Glucose Point of Care 123 mg/dl (65-105)
[2024-06-12 21:53] VITALS: BP 112/64; PULSE 101; RESP 18; TEMP 37.2; O2SAT 96
[2024-06-13] MEDS: ACETAMINOPHEN 325 MG TABLET 650 MG PO (01:58)
[2024-06-13] MEDS: HYDROmorphone HCL INJ (*CRX) 1 MG/ML SYR IV PUSH ×4 (02:55→13:04)
[2024-06-13] MEDS: ONDANSETRON INJ 4 MG/2 ML VIAL IV PUSH ×2 (02:58→21:12)
[2024-06-13] MEDS: LEVOTHYROXINE SODIUM 100 MCG TABLET 200 MCG PO (05:29)
[2024-06-13] MEDS: METOCLOPRAMIDE HCL INJ 10 MG/2 ML VIAL 5 MG IV PUSH ×4 (05:29→23:16)
[2024-06-13 05:33] VITALS: BP 116/66; PULSE 102; RESP 18; TEMP 37.1; O2SAT 95
--- NOTE | 2024-06-13 07:34 | PC.NURSE ---
This nurse reminded patient to fill out her insulin pump worksheet at 1999 on 06/12/24 When this nurse went to collect patient's insulin pump worksheet it was not filled out. Reminded the patient of importance of filling out the worksheet and provided a new worksheet.
[2024-06-13 08:17] LABS: Glucose Point of Care 126 mg/dl (65-105)
[2024-06-13] MEDS: metFORMIN HCL 500 MG TABLET 1000 MG PO ×2 (08:42→17:05)
[2024-06-13] MEDS: CITALOPRAM HYDROBROMIDE 20 MG TABLET 40 MG PO (08:42)
[2024-06-13] MEDS: ASPIRIN 81 MG ENTERIC TABLET PO (08:42)
[2024-06-13] MEDS: PANTOPRAZOLE 40 MG TABLET PO ×2 (08:42→21:06)
[2024-06-13] MEDS: TICAGRELOR 90 MG TABLET PO ×2 (08:42→21:06)
[2024-06-13] MEDS: ENOXAPARIN 40 MG/0.4 ML SYRINGE SUB-Q (08:43)
[2024-06-13] MEDS: FENOFIBRATE 160 MG TABLET PO (08:43)
[2024-06-13] MEDS: LIPASE/AMYLASE/PROTEASE 12,000 UNITS CAP 6 CAP PO ×3 (08:43→17:05)
--- NOTE | 2024-06-13 08:48 | P.PNIM_ITS ---
Progress Note: A&P Assessment and Plan (1) Type 2 diabetes mellitus: Qualifiers: Diabetes mellitus complication status: without complication Diabetes mellitus detention insulin use: with detention use Qualified Code(s): E11.9 - Type 2 diabetes mellitus without complications; Z79.4 - continuous churn buttermaker (current) use of insulin Code(s): E11.9 - Type 2 diabetes mellitus without complications Status: Acute (2) Hyperglycemia: Code(s): R73.9 - Hyperglycemia, unspecified Status: Acute (3) Hypertriglyceridemia: Code(s): E78.1 - Pure hyperglyceridemia Status: Acute Plan (1) Hypertriglyceridemia: Code(s): E78.1 - Pure hyperglyceridemia Status: Acute Assessment and Plan: Triglyceride levels were not detectable due to blood being lipemic, patient is well known to us at this does happen every time she is here -started patient on insulin infusion with D5 half-normal saline to prevent hypoglycemia -remains on insulin infusion -nephrology following -06/07: status post plasmapheresis x1 -triglycerides level down to 409 -patient to get insulin pump from home (2) Abdominal pain: Code(s): R10.9 - Unspecified abdominal pain Status: Acute Assessment and Plan: 06/07: Patient presented with abdominal pain, along with nausea vomiting, triglycerides are not readable, possibly due to blood being lipemic. Lipase could not be resulted due to the blood being lipemic -06/07: CT scan of the abdomen and pelvis: 1. No acute intra-abdominal/pelvic process.2. Mild left hydronephrosis likely related to chronic UPJ obstruction with unchanged 1-2 mm nonobstructing left renal stone but no evident obstructing stone or mass at the transition point at the ureteropelvic junction. Flare up chronic pancreatitis due to hypertriglyceridemia Continue Dilaudid IV p.r.n., encourage patient stop using narcotic medication Patient still has nausea without vomiting Continue Zofran for nausea/vomiting Patient need less necrotic medication today, appetite improving. Repeated triglyceride 452 (3) Nausea & vomiting: Code(s): R11.2 - Nausea with vomiting, unspecified Status: Acute Assessment and Plan: Likely related to pancreatitis, hypertriglyceridemia and also likely gastroparesis -continue anti emetics Poor intake, but appetite is improving Continue Reglan 10 mg q.6 hours scheduled (4) Chronic pancreatitis: Onset Date: ~09/02/23 Qualifiers: Pancreatitis type: other Qualified Code(s): K86.1 - Other chronic pancreatitis Code(s): K86.1 - Other chronic pancreatitis Status: Chronic Assessment and Plan: History of chronic pancreatitis, has been admitted multiple times for hypertriglyceridemia leading to pancreatitis Abdomen pain is subsiding. Taper down Dilaudid 1 mg IV q.3 hours p.o., to 0.5 mg q.6 hours IV p.r.n. Continue pancreatic enzymes (5) Type 2 diabetes mellitus: Qualifiers: Diabetes mellitus detention insulin use: with detention use Diabetes mellitus complication status: without complication Qualified Code(s): E11.9 - Type 2 diabetes mellitus without complications; Z79.4 - [facility] (current) use of insulin Code(s): E11.9 - Type 2 diabetes mellitus without complications Status: Acute Assessment and Plan: Received insulin infusion, Transition to insulin pump from home. -Accu-Cheks and sliding scale insulin -diabetic diet hemoglobin A1c was 8.3 on 05/03/2024 Glucose is well controlled in the target range Plan DVT prophylaxis: Lovenox Stress ulcer prophylaxis: Protonix Nutrition: Diabetic diet Code Status: Full code Subjective Date/time seen: 06/13/24 08:48 Interval history: I saw examined the patient today, patient still has abdomen pain, still has poor appetite, feeling nausea denies vomiting. Patient is afebrile, blood pressure stable Exam Narrative: GENERAL: Ill-appearing in no acute distress. Obesity - EYES: EOMI. Anicteric. - HENT: Moist mucous membranes. - LUNGS: Clear to auscultation bilateral ly, no wheezing, rhonchi, or rales. - CARDIOVASCULAR: Regular rate and rhyth m. No murmur. No JVD. - ABDOMEN: Soft, mid abdominal tender an d non-distended. No palpable masses. - EXTREMITIES: No edema. Peripheral puls es 2+. Non-tender. - NEUROLOGIC: No focal neurological defi cits. CN II-XII grossly intact. - PSYCHIATRIC: Awake, Alert and oriented x 3. Appropriate mood and affect. - SKIN: No rashes or lesions. Warm. - LYMPH: No cervical lymphadenopathy. Objective Data Vital Signs Vital Signs: Vital Signs - 24 hr 06/12/24 14:00 06/12/24 20:00 06/12/24 21:53 Temperature 97.8 F 99 F Pulse Rate 99 101 H Respiratory Rate 20 18 Blood Pressure 102/78 112/64 Pulse Oximetry 96 96 Oxygen Delivery Room Air 06/13/24 05:33 Temperature 98.8 F Pulse Rate 102 H Respiratory Rate 18 Blood Pressure 116/66 Pulse Oximetry 95 Oxygen Delivery Intake/Output Intake/Output: Intake & Output 06/10/24 06/11/24 06/12/24 06/13/24 23:59 23:59 23:59 23:59 Intake Total 830 1230 758 550 Output Total 2350 Balance -1520 1230 758 550 Meds/Results Medications: Active Medications Generic Name Dose Route Start Last Admin Trade Name Freq PRN Reason Stop Dose Admin Acetaminophen 650 mg 06/07/24 07:00 06/13/24 01:58 Acetaminophen 325 Mg Tablet PO 650 mg Q4H PRN Administration Mild Pain (1-3) or Fever Alteplase, Recombinant 2 mg 06/07/24 11:55 Alteplase 2 Mg Vial (Cathflo) IV PUSH ONCE PRN Line Occlusion Lipase/Protease/Amylase 6 cap 06/08/24 12:00 06/13/24 08:43 Lipase/Amylase/Protease 12,000 Units Cap PO 6 cap TIDWM RAPHAEL Administration Aspirin 81 mg 06/09/24 09:00 06/13/24 08:42 Aspirin 81 Mg Enteric Tablet PO 81 mg QAM RAPHAEL Administration Atorvastatin Calcium 80 mg 06/07/24 21:00 06/12/24 20:16 Atorvastatin 40 Mg Tablet PO 80 mg HS RAPHAEL Administration Bupropion HCl 150 mg 06/08/24 21:00 06/12/24 20:16 Bupropion Hcl Sr (12 Hr) 150 Mg Tab PO 150 mg HS RAPHAEL Administration Citalopram Hydrobromide 40 mg 06/09/24 09:00 06/13/24 08:42 Citalopram Hydrobromide 20 Mg Tablet PO 40 mg DAILY RAPHAEL Administration Dextrose 12.5 gm 06/09/24 10:34 Dextrose 50% 25 Gm/50 Ml Syringe IV PUSH PRN PRN Hypoglycemia Protocol Diphenhydramine HCl 25 mg 06/08/24 10:21 06/12/24 20:19 Diphenhydramine Hcl Cap 25 Mg Capsule PO 25 mg Q6H PRN Administration Itching Docusate Sodium 100 mg 06/09/24 07:37 Docusate Sodium 100 Mg Capsule PO Q12HR PRN constipation Enoxaparin Sodium 40 mg 06/08/24 09:00 06/13/24 08:43 Enoxaparin 40 Mg/0.4 Ml Syringe SUB-Q 40 mg DAILY RAPHAEL Administration Fenofibrate 160 mg 06/07/24 09:00 06/13/24 08:43 Fenofibrate 160 Mg Tablet PO 160 mg DAILY RAPHAEL Administration Glucagon 1 mg 06/09/24 10:34 Glucagon For Inj 1 Mg Vial IM PRN PRN Hypoglycemia Protocol Glucose 15 gm 06/09/24 10:34 Glucose Oral Gel 15 Gm Of Glucse In 37.5 Gm Tube PO PRN PRN Hypoglycemia Protocol Hydromorphone HCl 1 mg 06/07/24 09:55 06/13/24 06:29 Hydromorphone Hcl Inj (*Crx) 1 Mg/Ml Syr IV PUSH 1 mg Q3H PRN Administration Pain Rated 7-10 Dextrose 1,000 mls @ 100 mls/hr 06/09/24 10:34 Dextrose 5% 1,000 Ml IVPB PRN PRN Hypoglycemia Protocol Insulin Aspart 4 - 8 units 06/09/24 12:00 06/13/24 08:36 Insulin Aspart (*Bkc) 100 Units/Ml SUB-Q Not Given TIDWM RAPHAEL Protocol Insulin Aspart 2 - 4 units 06/09/24 21:00 06/12/24 20:26 Insulin Aspart (*Bkc) 100 Units/Ml SUB-Q Not Given HS RAPHAEL Protocol Levothyroxine Sodium 200 mcg 06/08/24 06:30 06/13/24 05:29 Levothyroxine Sodium 100 Mcg Tablet PO 200 mcg DAILY@0630 RAPHAEL Administration Lorazepam 1 mg 06/08/24 20:36 06/12/24 20:19 Lorazepam (*Crx) 1 Mg Tablet PO 1 mg QHS PRN Administration sleep Metformin HCl 1,000 mg 06/09/24 09:00 06/13/24 08:42 Metformin Hcl 500 Mg Tablet PO 1,000 mg BID RAPHAEL Administration Metoclopramide HCl 5 mg 06/08/24 12:00 06/13/24 05:29 Metoclopramide Hcl Inj 10 Mg/2 Ml Vial IV PUSH 5 mg Q6HR RAPHAEL Administration Ondansetron HCl 4 mg 06/07/24 07:00 06/13/24 02:58 Ondansetron Inj 4 Mg/2 Ml Vial IV PUSH 4 mg Q4H PRN Administration Nausea Pantoprazole Sodium 40 mg 06/12/24 21:00 06/13/24 08:42 Pantoprazole 40 Mg Tablet PO 40 mg Q12HR RAPHAEL Administration Ticagrelor 90 mg 06/07/24 09:00 06/13/24 08:42 Ticagrelor 90 Mg Tablet PO 90 mg Q12HR RAPHAEL Administration Trazodone HCl 200 mg 06/08/24 21:00 06/12/24 20:16 Trazodone Hcl 50 Mg Tablet PO 200 mg HS RAPHAEL Administration Radiology Results: ITS Impressions Abdomen/Pelvis CT 06/07/24 10:25 IMPRESSION: 1. No acute intra-abdominal/pelvic process. 2. Mild left hydronephrosis likely related to chronic UPJ obstruction with unchanged 1-2 mm nonobstructing left renal stone but no evident obstructing stone or mass at the transition point at the ureteropelvic junction. Labs Labs: Laboratory Results - last 24 hr 06/12/24 06/13/24 21:25 08:06 POC Capillary Glucose 123 H 126 H
[2024-06-13 09:45] LABS: Anion Gap 11 mmol/L (4-12); Blood Urea Nitrogen 12 mg/dL (7-17); Calcium 9.2 mg/dL (8.4-10.2); Carbon Dioxide 27 mmol/L (22-30); Chloride 101 mmol/L (98-107); Estimated CRCL calculation 80 ml/min; Estimated Glomerular Filt Rate > 60; Glucose 112 mg/dL (65-110); Hematocrit 38.3 % (37.0-47.0); Hemoglobin 12.3 g/dL (12.0-15.0); Mean Corpuscular HGB Conc 32.1 g/dl (32-36); Mean Corpuscular Hemoglobin 29.1 pg (26-34); Mean Corpuscular Volume 90.8 fl (80-100); Mean Platelet Volume 9.3 fl (7.4-10.4); Platelet Count Result 255 k/mm3 (150-375); Potassium 3.9 mmol/L (3.4-5.0); Red Blood Count 4.22 M/mm3 (4.2-5.4); Red Cell Distribution Width 15.3 % (11.5-14.5); Sodium 139 mmol/L (137-145); Triglycerides 452 mg/dL (<150); White Blood Count 8.2 K/mm3 (4.5-10.0)
[2024-06-13 12:15] LABS: Glucose Point of Care 110 mg/dl (65-105)
[2024-06-13] MEDS: LORazepam (*CRX) 1 MG TABLET PO ×2 (12:22→21:06)
[2024-06-13 14:00] VITALS: BP 107/60; PULSE 99; RESP 14; TEMP 36.3; O2SAT 94
[2024-06-13] MEDS: HYDROmorphone HCL INJ (*CRX) 1 MG/ML SYR 0.5 MG IV PUSH ×2 (17:06→23:16)
[2024-06-13 17:13] LABS: Glucose Point of Care 119 mg/dl (65-105)
[2024-06-13] MEDS: diphenhydrAMINE HCl CAP 25 MG CAPSULE PO (21:06)
[2024-06-13] MEDS: ATORVASTATIN 40 MG TABLET 80 MG PO (21:06)
[2024-06-13] MEDS: buPROPion HCL SR (12 HR) 150 MG TAB PO (21:07)
[2024-06-13] MEDS: traZODone HCL 50 MG TABLET 200 MG PO (21:07)
[2024-06-13] MEDS: KETOROLAC 15 MG/ML VIAL (*BKC) IV PUSH (21:08)
[2024-06-13 21:51] LABS: Glucose Point of Care 106 mg/dl (65-105)
[2024-06-13 22:00] VITALS: BP 108/75; PULSE 98; RESP 18; TEMP 36.2; O2SAT 98
[2024-06-14] MEDS: KETOROLAC 15 MG/ML VIAL (*BKC) IV PUSH ×3 (03:07→15:01)
[2024-06-14] MEDS: diphenhydrAMINE HCl CAP 25 MG CAPSULE PO ×2 (03:07→21:12)
[2024-06-14] MEDS: METOCLOPRAMIDE HCL INJ 10 MG/2 ML VIAL 5 MG IV PUSH ×2 (05:37→11:17)
[2024-06-14] MEDS: HYDROmorphone HCL INJ (*CRX) 1 MG/ML SYR 0.5 MG IV PUSH ×3 (05:38→18:24)
[2024-06-14] MEDS: LEVOTHYROXINE SODIUM 100 MCG TABLET 200 MCG PO (05:39)
[2024-06-14 06:00] VITALS: BP 110/76; PULSE 96; RESP 18; TEMP 36.3; O2SAT 100
[2024-06-14 08:24] LABS: Glucose Point of Care 99 mg/dl (65-105)
--- NOTE | 2024-06-14 08:59 | P.PNIM_ITS ---
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 Code(s): E11.9 - Type 2 diabetes mellitus without complications Status: Acute (2) Hyperglycemia: Code(s): R73.9 - Hyperglycemia, unspecified Status: Acute (3) Hypertriglyceridemia: Code(s): E78.1 - Pure hyperglyceridemia Status: Acute Plan (1) Hypertriglyceridemia: Code(s): E78.1 - Pure hyperglyceridemia Status: Acute Assessment and Plan: Triglyceride levels were not detectable due to blood being lipemic, patient is well known to us at this does happen every time she is here -started patient on insulin infusion with D5 half-normal saline to prevent hypoglycemia -remains on insulin infusion -nephrology following -06/07: status post plasmapheresis x1 patient to get insulin pump from home (2) Abdominal pain: Code(s): R10.9 - Unspecified abdominal pain Status: Acute Assessment and Plan: 06/07: Patient presented with abdominal pain, along with nausea vomiting, triglycerides are not readable, possibly due to blood being lipemic. Lipase could not be resulted due to the blood being lipemic -06/07: CT scan of the abdomen and pelvis: 1. No acute intra-abdominal/pelvic process.2. Mild left hydronephrosis likely related to chronic UPJ obstruction with unchanged 1-2 mm nonobstructing left renal stone but no evident obstructing stone or mass at the transition point at the ureteropelvic junction. Flare up chronic pancreatitis due to hypertriglyceridemia Decreased frequency of Dilaudid IV p.r.n., encourage patient stop using narcotic medication Patient need less necrotic medication today, appetite improving. Repeated triglyceride 452 Lipase negative (3) Nausea & vomiting: Code(s): R11.2 - Nausea with vomiting, unspecified Status: Acute Assessment and Plan: Likely related to pancreatitis, hypertriglyceridemia and also likely gastroparesis -continue anti emetics Poor intake, but appetite is improving Continue Reglan 10 mg q.6 hours scheduled (4) Chronic pancreatitis: Onset Date: ~09/02/23 Qualifiers: Pancreatitis type: other Qualified Code(s): K86.1 - Other chronic pancreatitis Code(s): K86.1 - Other chronic pancreatitis Status: Chronic Assessment and Plan: History of chronic pancreatitis, has been admitted multiple times for hypertriglyceridemia leading to pancreatitis Abdomen pain is subsiding. Taper down Dilaudid 1 mg IV q.3 hours p.o., to 0.5 mg q.6 hours IV p.r.n. 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 -Accu-Cheks and sliding scale insulin -diabetic diet hemoglobin A1c was 8.3 on 05/03/2024 Glucose is well controlled in the target range Plan DVT prophylaxis: Lovenox Stress ulcer prophylaxis: Protonix Nutrition: Diabetic diet Code Status: Full code Subjective Date/time seen: 06/14/24 08:59 Interval history: I saw examined the patient today, patient still has abdomen pain, appetite is improving, feeling nausea denies vomiting. Patient is afebrile, blood pressure stable Exam Narrative: GENERAL: Ill-appearing in no acute distress. Obesity - EYES: EOMI. Anicteric. - HENT: Moist mucous membranes. - LUNGS: Clear to auscultation bilateral ly, no wheezing, rhonchi, or rales. - CARDIOVASCULAR: Regular rate and rhyth m. No murmur. No JVD. - ABDOMEN: Soft, mid abdominal tender an d non-distended. No palpable masses. - EXTREMITIES: No edema. Peripheral puls es 2+. Non-tender. - NEUROLOGIC: No focal neurological defi cits. CN II-XII grossly intact. - PSYCHIATRIC: Awake, Alert and oriented x 3. Appropriate mood and affect. - SKIN: No rashes or lesions. Warm. - LYMPH: No cervical lymphadenopathy. Objective Data Vital Signs Vital Signs: Vital Signs - 24 hr 06/13/24 14:00 06/13/24 20:00 06/13/24 22:00 Temperature 97.4 F L 97.2 F L Pulse Rate 99 98 Respiratory Rate 14 18 Blood Pressure 107/60 108/75 Pulse Oximetry 94 98 Oxygen Delivery Room Air 06/14/24 06:00 Temperature 97.4 F L Pulse Rate 96 Respiratory Rate 18 Blood Pressure 110/76 Pulse Oximetry 100 Oxygen Delivery Intake/Output Intake/Output: Intake & Output 06/11/24 06/12/24 06/13/24 06/14/24 23:59 23:59 23:59 23:59 Intake Total 1230 758 786 550 Balance 1230 758 786 550 Meds/Results Medications: Active Medications Generic Name Dose Route Start Last Admin Trade Name Freq PRN Reason Stop Dose Admin Acetaminophen 650 mg 06/07/24 07:00 06/13/24 01:58 Acetaminophen 325 Mg Tablet PO 650 mg Q4H PRN Administration Mild Pain (1-3) or Fever Alteplase, Recombinant 2 mg 06/07/24 11:55 Alteplase 2 Mg Vial (Cathflo) IV PUSH ONCE PRN Line Occlusion Lipase/Protease/Amylase 6 cap 06/08/24 12:00 06/13/24 17:05 Lipase/Amylase/Protease 12,000 Units Cap PO 6 cap TIDWM RAPHAEL Administration Aspirin 81 mg 06/09/24 09:00 06/13/24 08:42 Aspirin 81 Mg Enteric Tablet PO 81 mg QAM RAPHAEL Administration Atorvastatin Calcium 80 mg 06/07/24 21:00 06/13/24 21:06 Atorvastatin 40 Mg Tablet PO 80 mg HS RAPHAEL Administration Bupropion HCl 150 mg 06/08/24 21:00 06/13/24 21:07 Bupropion Hcl Sr (12 Hr) 150 Mg Tab PO 150 mg HS RAPHAEL Administration Citalopram Hydrobromide 40 mg 06/09/24 09:00 06/13/24 08:42 Citalopram Hydrobromide 20 Mg Tablet PO 40 mg DAILY RAPHAEL Administration Dextrose 12.5 gm 06/09/24 10:34 Dextrose 50% 25 Gm/50 Ml Syringe IV PUSH PRN PRN Hypoglycemia Protocol Diphenhydramine HCl 25 mg 06/08/24 10:21 06/14/24 03:07 Diphenhydramine Hcl Cap 25 Mg Capsule PO 25 mg Q6H PRN Administration Itching Docusate Sodium 100 mg 06/09/24 07:37 Docusate Sodium 100 Mg Capsule PO Q12HR PRN constipation Enoxaparin Sodium 40 mg 06/08/24 09:00 06/13/24 08:43 Enoxaparin 40 Mg/0.4 Ml Syringe SUB-Q 40 mg DAILY RAPHAEL Administration Fenofibrate 160 mg 06/07/24 09:00 06/13/24 08:43 Fenofibrate 160 Mg Tablet PO 160 mg DAILY RAPHAEL Administration Glucagon 1 mg 06/09/24 10:34 Glucagon For Inj 1 Mg Vial IM PRN PRN Hypoglycemia Protocol Glucose 15 gm 06/09/24 10:34 Glucose Oral Gel 15 Gm Of Glucse In 37.5 Gm Tube PO PRN PRN Hypoglycemia Protocol Hydromorphone HCl 0.5 mg 06/13/24 13:47 06/14/24 05:38 Hydromorphone Hcl Inj (*Crx) 1 Mg/Ml Syr IV PUSH 0.5 mg Q6H PRN Administration Pain Rated 7-10 Dextrose 1,000 mls @ 100 mls/hr 06/09/24 10:34 Dextrose 5% 1,000 Ml IVPB PRN PRN Hypoglycemia Protocol Insulin Aspart 4 - 8 units 06/09/24 12:00 06/14/24 08:42 Insulin Aspart (*Bkc) 100 Units/Ml SUB-Q Not Given TIDWM [facility] Protocol Insulin Aspart 2 - 4 units 06/09/24 21:00 06/13/24 21:07 Insulin Aspart (*Bkc) 100 Units/Ml SUB-Q Not Given HS [facility] Protocol Ketorolac Tromethamine 15 mg 06/13/24 13:48 06/14/24 03:07 Ketorolac 15 Mg/Ml Vial (*Bkc) IV PUSH 15 mg Q6H PRN Administration Pain Rated 4-6 Levothyroxine Sodium 200 mcg 06/08/24 06:30 06/14/24 05:39 Levothyroxine Sodium 100 Mcg Tablet PO 200 mcg DAILY@0630 RAPHAEL Administration Lorazepam 1 mg 06/08/24 20:36 06/13/24 21:06 Lorazepam (*Crx) 1 Mg Tablet PO 1 mg QHS PRN Administration sleep Metformin HCl 1,000 mg 06/09/24 09:00 06/13/24 17:05 Metformin Hcl 500 Mg Tablet PO 1,000 mg BID RAPHAEL Administration Metoclopramide HCl 5 mg 06/08/24 12:00 06/14/24 05:37 Metoclopramide Hcl Inj 10 Mg/2 Ml Vial IV PUSH 5 mg Q6HR RAPHAEL Administration Ondansetron HCl 4 mg 06/07/24 07:00 06/13/24 21:12 Ondansetron Inj 4 Mg/2 Ml Vial IV PUSH 4 mg Q4H PRN Administration Nausea Pantoprazole Sodium 40 mg 06/12/24 21:00 06/13/24 21:06 Pantoprazole 40 Mg Tablet PO 40 mg Q12HR RAPHAEL Administration Ticagrelor 90 mg 06/07/24 09:00 06/13/24 21:06 Ticagrelor 90 Mg Tablet PO 90 mg Q12HR RAPHAEL Administration Trazodone HCl 200 mg 06/08/24 21:00 06/13/24 21:07 Trazodone Hcl 50 Mg Tablet PO 200 mg HS RAPHAEL Administration Radiology Results: ITS Impressions Abdomen/Pelvis CT 06/07/24 10:25 IMPRESSION: 1. No acute intra-abdominal/pelvic process. 2. Mild left hydronephrosis likely related to chronic UPJ obstruction with unchanged 1-2 mm nonobstructing left renal stone but no evident obstructing stone or mass at the transition point at the ureteropelvic junction. Labs Labs: Laboratory Results - last 24 hr 06/13/24 06/13/24 06/13/24 09:13 11:52 16:54 WBC 8.2 RBC 4.22 Hgb 12.3 Hct 38.3 MCV 90.8 MCH 29.1 MCHC 32.1 RDW 15.3 H Plt Count 255 MPV 9.3 Sodium 139 Potassium 3.9 Chloride 101 Carbon Dioxide 27 Anion Gap 11 BUN 12 Creatinine 0.82 Estim Creat Clear Calc 80 Estimated GFR > 60 Glucose 112 H POC Capillary Glucose 110 H 119 H Calcium 9.2 Triglycerides 452 H 06/13/24 06/14/24 21:24 08:10 WBC RBC Hgb Hct MCV MCH MCHC RDW Plt Count MPV Sodium Potassium Chloride Carbon Dioxide Anion Gap BUN Creatinine Estim Creat Clear Calc Estimated GFR Glucose POC Capillary Glucose 106 H 99 Calcium Triglycerides
[2024-06-14] MEDS: LIPASE/AMYLASE/PROTEASE 12,000 UNITS CAP 6 CAP PO ×3 (09:01→18:14)
[2024-06-14] MEDS: metFORMIN HCL 500 MG TABLET 1000 MG PO ×2 (09:02→18:15)
[2024-06-14] MEDS: PANTOPRAZOLE 40 MG TABLET PO ×2 (09:02→21:05)
[2024-06-14] MEDS: TICAGRELOR 90 MG TABLET PO ×2 (09:02→21:05)
[2024-06-14] MEDS: CITALOPRAM HYDROBROMIDE 20 MG TABLET 40 MG PO (09:02)
[2024-06-14] MEDS: FENOFIBRATE 160 MG TABLET PO (09:02)
[2024-06-14] MEDS: ASPIRIN 81 MG ENTERIC TABLET PO (09:02)
[2024-06-14] MEDS: ENOXAPARIN 40 MG/0.4 ML SYRINGE SUB-Q (09:03)
[2024-06-14 09:30] LABS: Hematocrit 37.5 % (37.0-47.0); Hemoglobin 12.3 g/dL (12.0-15.0); Mean Corpuscular HGB Conc 32.8 g/dl (32-36); Mean Corpuscular Hemoglobin 29.4 pg (26-34); Mean Corpuscular Volume 89.7 fl (80-100); Platelet Count Result 249 k/mm3 (150-375); Red Blood Count 4.18 M/mm3 (4.2-5.4); White Blood Count 8.7 K/mm3 (4.5-10.0)
[2024-06-14 09:55] LABS: Anion Gap 14 mmol/L (4-12); Blood Urea Nitrogen 18 mg/dL (7-17); Calcium 8.9 mg/dL (8.4-10.2); Carbon Dioxide 24 mmol/L (22-30); Chloride 102 mmol/L (98-107); Estimated CRCL calculation 50 ml/min; Estimated Glomerular Filt Rate 41; Glucose 94 mg/dL (65-110); Lipase 25 U/L (23-300); Sodium 140 mmol/L (137-145)
[2024-06-14 12:43] LABS: Glucose Point of Care 99 mg/dl (65-105)
[2024-06-14 14:00] VITALS: BP 122/70; PULSE 106; RESP 14; TEMP 36.5; O2SAT 97
[2024-06-14] MEDS: ONDANSETRON INJ 4 MG/2 ML VIAL IV PUSH (16:39)
[2024-06-14 17:22] LABS: Glucose Point of Care 129 mg/dl (65-105)
--- NOTE | 2024-06-14 19:00 | PC.NURSE ---
On 06/15/24, the HOUSEKEEPER [employer], Puja Domingo, provided care and completed [facility] documentation on this patient. I have reviewed the [employer]'s documentation and agree with the findings.
[2024-06-14] MEDS: ATORVASTATIN 40 MG TABLET 80 MG PO (21:05)
[2024-06-14] MEDS: buPROPion HCL SR (12 HR) 150 MG TAB PO (21:05)
[2024-06-14] MEDS: LORazepam (*CRX) 1 MG TABLET PO (21:12)
[2024-06-14] MEDS: traZODone HCL 50 MG TABLET 200 MG PO (21:44)
[2024-06-14 22:00] VITALS: BP 112/63; PULSE 106; RESP 18; TEMP 36.3; O2SAT 98
[2024-06-14 22:12] LABS: Glucose Point of Care 99 mg/dl (65-105)
[2024-06-15] MEDS: HYDROmorphone HCL INJ (*CRX) 1 MG/ML SYR 0.5 MG IV PUSH ×4 (00:49→19:50)
[2024-06-15] MEDS: METOCLOPRAMIDE HCL INJ 10 MG/2 ML VIAL 5 MG IV PUSH ×4 (00:50→19:00)
[2024-06-15] MEDS: LEVOTHYROXINE SODIUM 100 MCG TABLET 200 MCG PO (06:23)
[2024-06-15 08:00] VITALS: PULSE 106; RESP 18; O2SAT 98
[2024-06-15 08:11] LABS: Glucose Point of Care 106 mg/dl (65-105)
--- NOTE | 2024-06-15 09:13 | P.PNIM_ITS ---
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 Code(s): E11.9 - Type 2 diabetes mellitus without complications Status: Acute (2) Hyperglycemia: Code(s): R73.9 - Hyperglycemia, unspecified Status: Acute (3) Hypertriglyceridemia: Code(s): E78.1 - Pure hyperglyceridemia Status: Acute Plan Hypertriglyceridemia: Code(s): E78.1 - Pure hyperglyceridemia Status: Acute Assessment and Plan: Triglyceride levels were not detectable due to blood being lipemic, patient is well known to us at this does happen every time she is here -started patient on insulin infusion with D5 half-normal saline to prevent hypoglycemia -remains on insulin infusion -nephrology following -06/07: status post plasmapheresis x1 patient to get insulin pump from home Abdominal pain: Code(s): R10.9 - Unspecified abdominal pain Status: Acute Assessment and Plan: 06/07: Patient presented with abdominal pain, along with nausea vomiting, triglycerides are not readable, possibly due to blood being lipemic. Lipase could not be resulted due to the blood being lipemic -06/07: CT scan of the abdomen and pelvis: 1. No acute intra-abdominal/pelvic process.2. Mild left hydronephrosis likely related to chronic UPJ obstruction with unchanged 1-2 mm nonobstructing left renal stone but no evident obstructing stone or mass at the transition point at the ureteropelvic junction. Flare up chronic pancreatitis due to hypertriglyceridemia Decreased frequency of Dilaudid IV p.r.n., encourage patient stop using narcotic medication Patient need less necrotic medication today, appetite improving. Repeated triglyceride 452 Lipase negative Nausea & vomiting: Code(s): R11.2 - Nausea with vomiting, unspecified Status: Acute Assessment and Plan: Likely related to pancreatitis, hypertriglyceridemia and also likely gastroparesis -continue anti emetics Poor intake, but appetite is improving Continue Reglan 10 mg q.6 hours scheduled IVONNE Patient has elevated BUN creatinine now trending up in past 3 days, patient cannot tolerate diet. Possible due to dehydration Start lactated Ringer IV f/u UA Chronic pancreatitis: Onset Date: ~09/02/23 Qualifiers: Pancreatitis type: other Qualified Code(s): K86.1 - Other chronic pancreatitis Code(s): K86.1 - Other chronic pancreatitis Status: Chronic Assessment and Plan: History of chronic pancreatitis, has been admitted multiple times for hypertriglyceridemia leading to pancreatitis Abdomen pain is subsiding. Taper down Dilaudid 1 mg IV q.3 hours p.o., to 0.5 mg q.6 hours IV p.r.n. Continue pancreatic enzymes Type 2 diabetes mellitus: Qualifiers: Diabetes mellitus senior living insulin use: with senior living use Diabetes mellitus complication status: without complication Qualified Code(s): E11.9 - Type 2 diabetes mellitus without complications; Z79.4 - detention (current) use of insulin Code(s): E11.9 - Type 2 diabetes mellitus without complications Status: Acute Assessment and Plan: Received insulin infusion, Transition to insulin pump from home. -Accu-Cheks and sliding scale insulin -diabetic diet hemoglobin A1c was 8.3 on 05/03/2024 Glucose is well controlled in the target range Plan DVT prophylaxis: Lovenox Stress ulcer prophylaxis: Protonix Nutrition: Diabetic diet Code Status: Full code Subjective Date/time seen: 06/15/24 09:13 Interval history: I saw examined the patient today, patient still has abdomen pain still has a poor appetite, has nausea nausea denies vomiting and diarrhea. Patient is afebrile, blood pressure stable. Labs reviewed, BUN creatinine is trending up Exam Narrative: GENERAL: Ill-appearing in no acute distress. Obesity - EYES: EOMI. Anicteric. - HENT: dry mucous membranes. - LUNGS: Clear to auscultation bilateral ly, no wheezing, rhonchi, or rales. - CARDIOVASCULAR: Regular rate and rhyth m. No murmur. No JVD. - ABDOMEN: Soft, mid abdominal tender an d non-distended. No palpable masses. - EXTREMITIES: No edema. Peripheral puls es 2+. Non-tender. - NEUROLOGIC: No focal neurological defi cits. CN II-XII grossly intact. - PSYCHIATRIC: Awake, Alert and oriented x 3. Appropriate mood and affect. - SKIN: No rashes or lesions. Warm. - LYMPH: No cervical lymphadenopathy. Objective Data Vital Signs Vital Signs: Vital Signs - 24 hr 06/14/24 14:00 06/14/24 20:00 06/14/24 22:00 Temperature 97.7 F 97.4 F L Pulse Rate 106 H 106 H Respiratory Rate 14 18 Blood Pressure 122/70 112/63 Pulse Oximetry 97 98 Oxygen Delivery Room Air Intake/Output Intake/Output: Intake & Output 06/12/24 06/13/24 06/14/24 06/15/24 23:59 23:59 23:59 23:59 Intake Total 758 786 550 Balance 758 786 550 Meds/Results Medications: Active Medications Generic Name Dose Route Start Last Admin Trade Name Freq PRN Reason Stop Dose Admin Acetaminophen 650 mg 06/07/24 07:00 06/13/24 01:58 Acetaminophen 325 Mg Tablet PO 650 mg Q4H PRN Administration Mild Pain (1-3) or Fever Alteplase, Recombinant 2 mg 06/07/24 11:55 Alteplase 2 Mg Vial (Cathflo) IV PUSH ONCE PRN Line Occlusion Lipase/Protease/Amylase 6 cap 06/08/24 12:00 06/14/24 18:14 Lipase/Amylase/Protease 12,000 Units Cap PO 6 cap TIDWM RAPHAEL Administration Aspirin 81 mg 06/09/24 09:00 06/14/24 09:02 Aspirin 81 Mg Enteric Tablet PO 81 mg QAM RAPHAEL Administration Atorvastatin Calcium 80 mg 06/07/24 21:00 06/14/24 21:05 Atorvastatin 40 Mg Tablet PO 80 mg HS RAPHAEL Administration Bupropion HCl 150 mg 06/08/24 21:00 06/14/24 21:05 Bupropion Hcl Sr (12 Hr) 150 Mg Tab PO 150 mg HS RAPHAEL Administration Citalopram Hydrobromide 40 mg 06/09/24 09:00 06/14/24 09:02 Citalopram Hydrobromide 20 Mg Tablet PO 40 mg DAILY RAPHAEL Administration Dextrose 12.5 gm 06/09/24 10:34 Dextrose 50% 25 Gm/50 Ml Syringe IV PUSH PRN PRN Hypoglycemia Protocol Diphenhydramine HCl 25 mg 06/08/24 10:21 06/14/24 21:12 Diphenhydramine Hcl Cap 25 Mg Capsule PO 25 mg Q6H PRN Administration Itching Docusate Sodium 100 mg 06/09/24 07:37 Docusate Sodium 100 Mg Capsule PO Q12HR PRN constipation Enoxaparin Sodium 40 mg 06/08/24 09:00 06/14/24 09:03 Enoxaparin 40 Mg/0.4 Ml Syringe SUB-Q 40 mg DAILY RAPHAEL Administration Fenofibrate 160 mg 06/07/24 09:00 06/14/24 09:02 Fenofibrate 160 Mg Tablet PO 160 mg DAILY RAPHAEL Administration Glucagon 1 mg 06/09/24 10:34 Glucagon For Inj 1 Mg Vial IM PRN PRN Hypoglycemia Protocol Glucose 15 gm 06/09/24 10:34 Glucose Oral Gel 15 Gm Of Glucse In 37.5 Gm Tube PO PRN PRN Hypoglycemia Protocol Hydromorphone HCl 0.5 mg 06/13/24 13:47 06/15/24 06:29 Hydromorphone Hcl Inj (*Crx) 1 Mg/Ml Syr IV PUSH 0.5 mg Q6H PRN Administration Pain Rated 7-10 Dextrose 1,000 mls @ 100 mls/hr 06/09/24 10:34 Dextrose 5% 1,000 Ml IVPB PRN PRN Hypoglycemia Protocol Insulin Aspart 4 - 8 units 06/09/24 12:00 06/14/24 17:41 Insulin Aspart (*Bkc) 100 Units/Ml SUB-Q Not Given TIDWM RAPHAEL Protocol Insulin Aspart 2 - 4 units 06/09/24 21:00 06/14/24 21:30 Insulin Aspart (*Bkc) 100 Units/Ml SUB-Q Not Given HS RAPHAEL Protocol Levothyroxine Sodium 200 mcg 06/08/24 06:30 06/15/24 06:23 Levothyroxine Sodium 100 Mcg Tablet PO 200 mcg DAILY@0630 RAPHAEL Administration Lorazepam 1 mg 06/08/24 20:36 06/14/24 21:12 Lorazepam (*Crx) 1 Mg Tablet PO 1 mg QHS PRN Administration sleep Metformin HCl 1,000 mg 06/09/24 09:00 06/14/24 18:15 Metformin Hcl 500 Mg Tablet PO 1,000 mg BID RAPHAEL Administration Metoclopramide HCl 5 mg 06/08/24 12:00 06/15/24 06:26 Metoclopramide Hcl Inj 10 Mg/2 Ml Vial IV PUSH 5 mg Q6HR RAPHAEL Administration Ondansetron HCl 4 mg 06/07/24 07:00 06/14/24 16:39 Ondansetron Inj 4 Mg/2 Ml Vial IV PUSH 4 mg Q4H PRN Administration Nausea Pantoprazole Sodium 40 mg 06/12/24 21:00 06/14/24 21:05 Pantoprazole 40 Mg Tablet PO 40 mg Q12HR RAPHAEL Administration Ticagrelor 90 mg 06/07/24 09:00 06/14/24 21:05 Ticagrelor 90 Mg Tablet PO 90 mg Q12HR RAPHAEL Administration Trazodone HCl 200 mg 06/08/24 21:00 06/14/24 21:44 Trazodone Hcl 50 Mg Tablet PO 200 mg HS RAPHAEL Administration Radiology Results: ITS Impressions Abdomen/Pelvis CT 06/07/24 10:25 IMPRESSION: 1. No acute intra-abdominal/pelvic process. 2. Mild left hydronephrosis likely related to chronic UPJ obstruction with unchanged 1-2 mm nonobstructing left renal stone but no evident obstructing stone or mass at the transition point at the ureteropelvic junction. Labs Labs: Laboratory Results - last 24 hr 06/14/24 06/14/24 06/14/24 09:12 12:06 17:04 WBC 8.7 RBC 4.18 L Hgb 12.3 Hct 37.5 MCV 89.7 MCH 29.4 MCHC 32.8 RDW 15.0 H Plt Count 249 MPV 9.0 Sodium 140 Potassium 4.0 Chloride 102 Carbon Dioxide 24 Anion Gap 14 H BUN 18 H Creatinine 1.36 H Estim Creat Clear Calc 50 Estimated GFR 41 L Glucose 94 POC Capillary Glucose 99 129 H Calcium 8.9 Lipase 06/14/24 06/15/24 21:25 07:57 WBC RBC Hgb Hct MCV MCH MCHC RDW Plt Count MPV Sodium Potassium Chloride Carbon Dioxide Anion Gap BUN Creatinine Estim Creat Clear Calc Estimated GFR Glucose POC Capillary Glucose 99 106 H Calcium Lipase
--- NOTE | 2024-06-15 09:13 | P.DS_ITS ---
DS: Discharge Diagnosis Discharge Diagnosis (1) Type 2 diabetes mellitus: Qualifiers: Diabetes mellitus alf insulin use: with alf use Diabetes mellitus complication status: without complication Qualified Code(s): E11.9 - Type 2 diabetes mellitus without complications; Z79.4 - assisted (current) use of insulin Code(s): E11.9 - Type 2 diabetes mellitus without complications Status: Acute (2) Hyperglycemia: Code(s): R73.9 - Hyperglycemia, unspecified Status: Acute (3) Hypertriglyceridemia: Code(s): E78.1 - Pure hyperglyceridemia Status: Acute Plan (1) Hypertriglyceridemia: Code(s): E78.1 - Pure hyperglyceridemia Status: Acute Assessment and Plan: Triglyceride levels were not detectable due to blood being lipemic, patient is well known to us at this does happen every time she is here -started patient on insulin infusion with D5 half-normal saline to prevent hypoglycemia -remains on insulin infusion -nephrology following -06/07: status post plasmapheresis x1 patient to get insulin pump from home (2) Abdominal pain: Code(s): R10.9 - Unspecified abdominal pain Status: Acute Assessment and Plan: 06/07: Patient presented with abdominal pain, along with nausea vomiting, triglycerides are not readable, possibly due to blood being lipemic. Lipase could not be resulted due to the blood being lipemic -06/07: CT scan of the abdomen and pelvis: 1. No acute intra-abdominal/pelvic process.2. Mild left hydronephrosis likely related to chronic UPJ obstruction with unchanged 1-2 mm nonobstructing left renal stone but no evident obstructing stone or mass at the transition point at the ureteropelvic junction. Flare up chronic pancreatitis due to hypertriglyceridemia Decreased frequency of Dilaudid IV p.r.n., encourage patient stop using narcotic medication Patient need less necrotic medication today, appetite improving. Repeated triglyceride 452 Lipase negative (3) Nausea & vomiting: Code(s): R11.2 - Nausea with vomiting, unspecified Status: Acute Assessment and Plan: Likely related to pancreatitis, hypertriglyceridemia and also likely gastroparesis -continue anti emetics Poor intake, but appetite is improving Continue Reglan 10 mg q.6 hours scheduled (4) Chronic pancreatitis: Onset Date: ~09/02/23 Qualifiers: Pancreatitis type: other Qualified Code(s): K86.1 - Other chronic pancreatitis Code(s): K86.1 - Other chronic pancreatitis Status: Chronic Assessment and Plan: History of chronic pancreatitis, has been admitted multiple times for hypertriglyceridemia leading to pancreatitis Abdomen pain is subsiding. Taper down Dilaudid 1 mg IV q.3 hours p.o., to 0.5 mg q.6 hours IV p.r.n. Continue pancreatic enzymes (5) Type 2 diabetes mellitus: Qualifiers: Diabetes mellitus health assessment and treatment teacher insulin use: with health assessment and treatment teacher use Diabetes mellitus complication status: without complication Qualified Code(s): E11.9 - Type 2 diabetes mellitus without complications; Z79.4 - assisted (current) use of insulin Code(s): E11.9 - Type 2 diabetes mellitus without complications Status: Acute Assessment and Plan: Received insulin infusion, Transition to insulin pump from home. -Accu-Cheks and sliding scale insulin -diabetic diet hemoglobin A1c was 8.3 on 05/03/2024 Glucose is well controlled in the target range Plan DVT prophylaxis: Lovenox Stress ulcer prophylaxis: Protonix Nutrition: Diabetic diet Code Status: Full code DS: Summary Time Spent with Patient Time attestation: Total time spent providing and/or coordinating discharge services: Exam Narrative: GENERAL: Ill-appearing in no acute distress. Obesity - EYES: EOMI. Anicteric. - HENT: Moist mucous membranes. - LUNGS: Clear to auscultation bilateral ly, no wheezing, rhonchi, or rales. - CARDIOVASCULAR: Regular rate and rhyth m. No murmur. No JVD. - ABDOMEN: Soft, mid abdominal tender an d non-distended. No palpable masses. - EXTREMITIES: No edema. Peripheral puls es 2+. Non-tender. - NEUROLOGIC: No focal neurological defi cits. CN II-XII grossly intact. - PSYCHIATRIC: Awake, Alert and oriented x 3. Appropriate mood and affect. - SKIN: No rashes or lesions. Warm. - LYMPH: No cervical lymphadenopathy. DS: Data Data Completed and Pending Labs on day of discharge: Labs from last 24 hours 06/15/24 06/14/24 06/14/24 07:57 21:25 17:04 WBC RBC Hgb Hct MCV MCH MCHC RDW Plt Count MPV Sodium Potassium Chloride Carbon Dioxide Anion Gap BUN Creatinine Estim Creat Clear Calc Estimated GFR Glucose POC Capillary Glucose 106 H 99 129 H Calcium Lipase 06/14/24 06/14/24 12:06 09:12 WBC 8.7 RBC 4.18 L Hgb 12.3 Hct 37.5 MCV 89.7 MCH 29.4 MCHC 32.8 RDW 15.0 H Plt Count 249 MPV 9.0 Sodium 140 Potassium 4.0 Chloride 102 Carbon Dioxide 24 Anion Gap 14 H BUN 18 H Creatinine 1.36 H Estim Creat Clear Calc 50 Estimated GFR 41 L Glucose 94 POC Capillary Glucose 99 Calcium 8.9 Lipase 25 Discharge Plan Discharge Consulting providers: Krystin Castellano; Eli Kaminski Patient Language: Italian Discharge Medications: No Action metformin 500 mg tablet 1,000 mg PO BID Qty: 180 1RF Rx Instructions: with morning & evening meals pantoprazole [Protonix] 40 mg tablet,delayed release (DR/EC) 40 mg PO BID Qty: 30 0RF levothyroxine 200 mcg tablet 200 mcg PO DAILY Creon 36,000-114,000- 180,000 unit capsule,delayed release(DR/EC) 2 cap PO TIDWMEAL Rx Instructions: Take 2 capsules with meals and 1 capsule with any snacks. aspirin 81 mg Tablet,Delayed Release (Dr/Ec) 81 mg PO QAM Qty: 30 0RF citalopram 40 mg tablet 40 mg PO DAILY Rx Instructions: TAKE 1 TABLET BY MOUTH EVERY DAY bupropion HCl 150 mg tablet sustained-release 12 hr 150 mg PO HS ondansetron 4 mg tablet,disintegrating 4 mg PO Q8H PRN (Reason: nausea and vomiting) Qty: 10 0RF insulin aspart U-100 [Novolog U-100 Insulin aspart] 100 unit/mL solution See Rx Instructions .ROUTE .COMPLEX Rx Instructions: infused via insulin pump metoprolol succinate 25 mg tablet extended release 24 hr 12.5 mg PO DAILY docusate sodium 100 mg Capsule 100 mg PO Q12HR PRN (Reason: constipation) Qty: 20 0RF cyclobenzaprine 10 mg tablet 10 mg PO HS PRN (Reason: muscle spasm) Qty: 10 0RF metoclopramide HCl 5 mg tablet 5 mg PO TIDWM Brilinta 90 mg tablet 90 mg PO BID Qty: 180 0RF (DME) pen needle, diabetic [BD Ultra-Fine Diandra Pen Needle] 32 gauge x 5/32 needle See Rx Instructions .ROUTE .MEDSUPPLY Qty: 1200 12RF Rx Instructions: 4 times daily (DME) insulin syringe-needle U-100 [BD Insulin Syringe Ultra-Fine] 0.3 mL 31 gauge x 5/16 syringe See Rx Instructions .ROUTE .MEDSUPPLY Qty: 100 12RF Rx Instructions: 4 times a day trazodone 100 mg tablet 200 mg PO HS Qty: 180 1RF atorvastatin 80 mg tablet 80 mg PO HS Qty: 90 1RF lorazepam 1 mg tablet 1 mg PO QHS PRN (Reason: sleep) Qty: 90 0RF fenofibrate 160 mg tablet 160 mg PO DAILY Qty: 90 1RF Date of admission: 06/08/24 09:27 Primary Care Provider: UNKNOWN,DOCTOR Admitting Provider: Bri Newsome Attending physician on admission: Bri Newsome Condition: Stable
[2024-06-15] MEDS: FENOFIBRATE 160 MG TABLET PO (09:31)
[2024-06-15] MEDS: LIPASE/AMYLASE/PROTEASE 12,000 UNITS CAP 6 CAP PO ×3 (09:31→16:10)
[2024-06-15] MEDS: TICAGRELOR 90 MG TABLET PO ×2 (09:32→21:59)
[2024-06-15] MEDS: ASPIRIN 81 MG ENTERIC TABLET PO (09:32)
[2024-06-15] MEDS: CITALOPRAM HYDROBROMIDE 20 MG TABLET 40 MG PO (09:32)
[2024-06-15] MEDS: metFORMIN HCL 500 MG TABLET 1000 MG PO ×2 (09:32→16:10)
[2024-06-15] MEDS: PANTOPRAZOLE 40 MG TABLET PO ×2 (09:32→21:59)
[2024-06-15] MEDS: ENOXAPARIN 40 MG/0.4 ML SYRINGE SUB-Q (09:33)
[2024-06-15 11:05] LABS: Anion Gap 11 mmol/L (4-12); Blood Urea Nitrogen 29 mg/dL (7-17); Calcium 8.5 mg/dL (8.4-10.2); Carbon Dioxide 27 mmol/L (22-30); Chloride 102 mmol/L (98-107); Estimated CRCL calculation 26 ml/min; Estimated Glomerular Filt Rate 19; Glucose 88 mg/dL (65-110); Potassium 3.9 mmol/L (3.4-5.0); Sodium 140 mmol/L (137-145)
[2024-06-15 12:08] LABS: Glucose Point of Care 97 mg/dl (65-105)
[2024-06-15 14:00] VITALS: BP 99/39; PULSE 96; RESP 16; TEMP 36.5; O2SAT 98
[2024-06-15 14:44] VITALS: BMI 32.0
[2024-06-15] MEDS: LACTATED RINGERS 1,000 ML 125 ML IV CONT (16:10)
[2024-06-15 17:07] LABS: Glucose Point of Care 123 mg/dl (65-105)
[2024-06-15 18:56] LABS: Add Urine Microscopic? YES; Appearance Urine Cloudy (Clear); Bacteria Urine 1+ /hpf; Bilirubin Urine Negative (Negative); Blood Urine 3+ (Negative); Color Urine Dark Yellow (Yellow); Glucose Urine UA Negative (Negative); Hyaline Casts Urine Present /lpf; Ketones Urine Trace mg/dL (Negative); Leukocyte Esterase Ur Trace LEU/UL (Negative); Nitrate Urine Negative (Negative); Non Pathogenic Casts >20; Protein Urine 1+ mg/dL (Negative); RBC Urine 51-100 /hpf (0-2); Specific Grav Ur 1.021 (1.001-1.035); Squamous Epithelial Cell Urine Moderate /hpf (Few)
[2024-06-15 21:56] LABS: Glucose Point of Care 43 mg/dl (65-105)
[2024-06-15 21:56] LABS: Glucose Point of Care 91 mg/dl (65-105)
[2024-06-15] MEDS: traZODone HCL 50 MG TABLET 200 MG PO (21:58)
[2024-06-15] MEDS: ATORVASTATIN 40 MG TABLET 80 MG PO (21:59)
[2024-06-15] MEDS: buPROPion HCL SR (12 HR) 150 MG TAB PO (21:59)
[2024-06-15 22:00] VITALS: BP 102/60; PULSE 98; RESP 16; TEMP 36.9; O2SAT 97
[2024-06-15] MEDS: diphenhydrAMINE HCl CAP 25 MG CAPSULE PO (22:02)
[2024-06-15] MEDS: LORazepam (*CRX) 1 MG TABLET PO (22:02)
[2024-06-16 00:43] LABS: Glucose Point of Care 117 mg/dl (65-105)
[2024-06-16] MEDS: METOCLOPRAMIDE HCL INJ 10 MG/2 ML VIAL 5 MG IV PUSH ×4 (01:18→17:54)
[2024-06-16] MEDS: HYDROmorphone HCL INJ (*CRX) 1 MG/ML SYR 0.5 MG IV PUSH ×4 (01:34→22:15)
[2024-06-16] MEDS: ONDANSETRON INJ 4 MG/2 ML VIAL IV PUSH (03:55)
[2024-06-16] MEDS: LEVOTHYROXINE SODIUM 100 MCG TABLET 200 MCG PO (05:45)
[2024-06-16] MEDS: LACTATED RINGERS 1,000 ML 125 ML IV CONT ×2 (05:46→20:12)
[2024-06-16 06:00] VITALS: BP 104/64; PULSE 100; RESP 16; TEMP 37.1; O2SAT 96
[2024-06-16 06:59] LABS: Anion Gap 11 mmol/L (4-12); Blood Urea Nitrogen 30 mg/dL (7-17); Calcium 8.4 mg/dL (8.4-10.2); Carbon Dioxide 24 mmol/L (22-30); Chloride 103 mmol/L (98-107); Estimated CRCL calculation 44 ml/min; Estimated Glomerular Filt Rate 37; Glucose 144 mg/dL (65-110); Potassium 3.6 mmol/L (3.4-5.0); Sodium 138 mmol/L (137-145)
[2024-06-16 07:54] LABS: Glucose Point of Care 108 mg/dl (65-105)
[2024-06-16 08:44] LABS: Glucose Point of Care 96 mg/dl (65-105)
[2024-06-16] MEDS: ENOXAPARIN 40 MG/0.4 ML SYRINGE SUB-Q (09:23)
[2024-06-16] MEDS: CITALOPRAM HYDROBROMIDE 20 MG TABLET 40 MG PO (09:23)
[2024-06-16] MEDS: LIPASE/AMYLASE/PROTEASE 12,000 UNITS CAP 6 CAP PO ×3 (09:23→17:52)
[2024-06-16] MEDS: PANTOPRAZOLE 40 MG TABLET PO ×2 (09:24→20:19)
[2024-06-16] MEDS: FENOFIBRATE 160 MG TABLET PO (09:24)
[2024-06-16] MEDS: metFORMIN HCL 500 MG TABLET 1000 MG PO ×2 (09:24→17:52)
[2024-06-16] MEDS: ASPIRIN 81 MG ENTERIC TABLET PO (09:24)
[2024-06-16] MEDS: TICAGRELOR 90 MG TABLET PO ×2 (09:24→20:19)
--- NOTE | 2024-06-16 10:00 | PM.IMPN ---
Progress Note: A&P Assessment and Plan (1) Type 2 diabetes mellitus: Qualifiers: Diabetes mellitus complication status: without complication Diabetes mellitus care home insulin use: with care home use Qualified Code(s): E11.9 - Type 2 diabetes mellitus without complications; Z79.4 - lobsterman (current) use of insulin Code(s): E11.9 - Type 2 diabetes mellitus without complications Status: Acute (2) Hyperglycemia: Code(s): R73.9 - Hyperglycemia, unspecified Status: Acute (3) Hypertriglyceridemia: Code(s): E78.1 - Pure hyperglyceridemia Status: Acute Plan Hypertriglyceridemia: Code(s): E78.1 - Pure hyperglyceridemia Status: Acute Assessment and Plan: Triglyceride levels were not detectable due to blood being lipemic, patient is well known to us at this does happen every time she is here -started patient on insulin infusion with D5 half-normal saline to prevent hypoglycemia -remains on insulin infusion -nephrology following -06/07: status post plasmapheresis x1 patient to get insulin pump from home Abdominal pain: Code(s): R10.9 - Unspecified abdominal pain Status: Acute Assessment and Plan: 06/07: Patient presented with abdominal pain, along with nausea vomiting, triglycerides are not readable, possibly due to blood being lipemic. Lipase could not be resulted due to the blood being lipemic -06/07: CT scan of the abdomen and pelvis: 1. No acute intra-abdominal/pelvic process.2. Mild left hydronephrosis likely related to chronic UPJ obstruction with unchanged 1-2 mm nonobstructing left renal stone but no evident obstructing stone or mass at the transition point at the ureteropelvic junction. Flare up chronic pancreatitis due to hypertriglyceridemia Decreased frequency of Dilaudid IV p.r.n., encourage patient stop using narcotic medication Patient need less necrotic medication today, appetite improving. Repeated triglyceride 452 Lipase negative Nausea & vomiting: Code(s): R11.2 - Nausea with vomiting, unspecified Status: Acute Assessment and Plan: Likely related to pancreatitis, hypertriglyceridemia and also likely gastroparesis -continue anti emetics Poor intake, but appetite is improving Continue Reglan 10 mg q.6 hours scheduled IVONNE Patient has elevated BUN creatinine now trending up in past 3 days, patient cannot tolerate diet. Possible due to dehydration Start lactated Ringer IV f/u UA: Showed UTI, start ceftriaxone 1 g IV daily Chronic pancreatitis: Onset Date: ~09/02/23 Qualifiers: Pancreatitis type: other Qualified Code(s): K86.1 - Other chronic pancreatitis Code(s): K86.1 - Other chronic pancreatitis Status: Chronic Assessment and Plan: History of chronic pancreatitis, has been admitted multiple times for hypertriglyceridemia leading to pancreatitis Abdomen pain is subsiding. Taper down Dilaudid 1 mg IV q.3 hours p.o., to 0.5 mg q.6 hours IV p.r.n. Continue pancreatic enzymes Type 2 diabetes mellitus: Qualifiers: Diabetes mellitus care home insulin use: with termite control servicer use Diabetes mellitus complication status: without complication Qualified Code(s): E11.9 - Type 2 diabetes mellitus without complications; Z79.4 - lobsterman (current) use of insulin Code(s): E11.9 - Type 2 diabetes mellitus without complications Status: Acute Assessment and Plan: Received insulin infusion, Transition to insulin pump from home. -Accu-Cheks and sliding scale insulin -diabetic diet hemoglobin A1c was 8.3 on 05/03/2024 Glucose is well controlled in the target range Plan DVT prophylaxis: Lovenox Stress ulcer prophylaxis: Protonix Nutrition: Diabetic diet Code Status: Full code Subjective Date/time seen: 06/16/24 10:00 Interval history: I saw examined the patient today, patient has diarrhea, denies abdomen nausea vomiting, poor appetite, appetite improving. Patient is afebrile, blood pressure stable. Labs reviewed, creatinine trending down from 2.62 to 1.5 today Exam Narrative: GENERAL: Ill-appearing in no acute distress. Obesity - EYES: EOMI. Anicteric. - HENT: dry mucous membranes. - LUNGS: Clear to auscultation bilaterally, no wheezing, rhonchi, or rales. - CARDIOVASCULAR: Regular rate and rhythm. No murmur. No JVD. - ABDOMEN: Soft, mid abdominal tender and non-distended. No palpable masses. - EXTREMITIES: No edema. Peripheral pulses 2+. Non-tender. - NEUROLOGIC: No focal neurological deficits. CN II-XII grossly intact. - PSYCHIATRIC: Awake, Alert and oriented x 3. Appropriate mood and affect. - SKIN: No rashes or lesions. Warm. - LYMPH: No cervical lymphadenopathy. Objective Data Vital Signs Vital Signs: Vital Signs - 24 hr 06/15/24 14:00 02/17/25 22:00 06/16/24 06:00 Temperature 97.7 F 98.5 F 98.8 F Pulse Rate 96 98 100 Respiratory Rate 16 16 16 Blood Pressure 99/39 L 102/60 104/64 Pulse Oximetry 98 97 96 Intake/Output Intake/Output: Intake & Output 06/13/24 06/14/24 06/15/24 06/16/24 23:59 23:59 23:59 23:59 Intake Total 592 641 0756 1000 Balance 501 100 1735 1000 Meds/Results Medications: Active Medications Generic Name Dose Route Start Last Admin Trade Name Freq PRN Reason Stop Dose Admin Acetaminophen 650 mg 06/07/24 07:00 06/13/24 01:58 Acetaminophen 325 Mg Tablet PO 650 mg Q4H PRN Administration Mild Pain (1-3) or Fever Alteplase, Recombinant 2 mg 06/07/24 11:55 Alteplase 2 Mg Vial (Cathflo) IV PUSH ONCE PRN Line Occlusion Lipase/Protease/Amylase 6 cap 06/08/24 12:00 06/16/24 09:23 Lipase/Amylase/Protease 12,000 Units Cap PO 6 cap TIDWM RAPHAEL Administration Aspirin 81 mg 06/09/24 09:00 06/16/24 09:24 Aspirin 81 Mg Enteric Tablet PO 81 mg QAM RAPHAEL Administration Atorvastatin Calcium 80 mg 06/07/24 21:00 06/15/24 21:59 Atorvastatin 40 Mg Tablet PO 80 mg HS RAPHAEL Administration Bupropion HCl 150 mg 06/08/24 21:00 06/15/24 21:59 Bupropion Hcl Sr (12 Hr) 150 Mg Tab PO 150 mg HS RAPHAEL Administration Citalopram Hydrobromide 40 mg 06/09/24 09:00 06/16/24 09:23 Citalopram Hydrobromide 20 Mg Tablet PO 40 mg DAILY RAPHAEL Administration Dextrose 12.5 gm 06/09/24 10:34 Dextrose 50% 25 Gm/50 Ml Syringe IV PUSH PRN PRN Hypoglycemia Protocol Diphenhydramine HCl 25 mg 06/08/24 10:21 06/15/24 22:02 Diphenhydramine Hcl Cap 25 Mg Capsule PO 25 mg Q6H PRN Administration Itching Docusate Sodium 100 mg 06/09/24 07:37 Docusate Sodium 100 Mg Capsule PO Q12HR PRN constipation Enoxaparin Sodium 40 mg 06/08/24 09:00 06/16/24 09:23 Enoxaparin 40 Mg/0.4 Ml Syringe SUB-Q 40 mg DAILY RAPHAEL Administration Fenofibrate 160 mg 06/07/24 09:00 06/16/24 09:24 Fenofibrate 160 Mg Tablet PO 160 mg DAILY RAPHAEL Administration Glucagon 1 mg 06/09/24 10:34 Glucagon For Inj 1 Mg Vial IM PRN PRN Hypoglycemia Protocol Glucose 15 gm 06/09/24 10:34 Glucose Oral Gel 15 Gm Of Glucse In 37.5 Gm Tube PO PRN PRN Hypoglycemia Protocol Hydromorphone HCl 0.5 mg 06/13/24 13:47 06/16/24 09:30 Hydromorphone Hcl Inj (*Crx) 1 Mg/Ml Syr IV PUSH 0.5 mg Q6H PRN Administration Pain Rated 7-10 Dextrose 1,000 mls @ 100 mls/hr 06/09/24 10:34 Dextrose 5% 1,000 Ml IVPB PRN PRN Hypoglycemia Protocol Lactated Ringer's 1,000 mls @ 125 mls/hr 06/15/24 14:10 06/16/24 05:46 Lr - Lactated Ringers Iv IV CONT 125 mls/hr .Q8H RAPHAEL Administration Insulin Aspart 4 - 8 units 06/09/24 12:00 06/16/24 09:22 Insulin Aspart (*Bkc) 100 Units/Ml SUB-Q Not Given TIDWM [facility] Protocol Insulin Aspart 2 - 4 units 06/09/24 21:00 06/15/24 21:59 Insulin Aspart (*Bkc) 100 Units/Ml SUB-Q Not Given HS [facility] Protocol Levothyroxine Sodium 200 mcg 06/08/24 06:30 06/16/24 05:45 Levothyroxine Sodium 100 Mcg Tablet PO 200 mcg DAILY@0630 RAPHAEL Administration Lorazepam 1 mg 06/08/24 20:36 06/15/24 22:02 Lorazepam (*Crx) 1 Mg Tablet PO 1 mg QHS PRN Administration sleep Metformin HCl 1,000 mg 06/09/24 09:00 06/16/24 09:24 Metformin Hcl 500 Mg Tablet PO 1,000 mg BID RAPHAEL Administration Metoclopramide HCl 5 mg 06/08/24 12:00 06/16/24 05:45 Metoclopramide Hcl Inj 10 Mg/2 Ml Vial IV PUSH 5 mg Q6HR RAPHAEL Administration Ondansetron HCl 4 mg 06/07/24 07:00 06/16/24 03:55 Ondansetron Inj 4 Mg/2 Ml Vial IV PUSH 4 mg Q4H PRN Administration Nausea Pantoprazole Sodium 40 mg 06/12/24 21:00 06/16/24 09:24 Pantoprazole 40 Mg Tablet PO 40 mg Q12HR RAPHAEL Administration Ticagrelor 90 mg 06/07/24 09:00 06/16/24 09:24 Ticagrelor 90 Mg Tablet PO 90 mg Q12HR RAPHAEL Administration Trazodone HCl 200 mg 06/08/24 21:00 06/15/24 21:58 Trazodone Hcl 50 Mg Tablet PO 200 mg HS RAPHAEL Administration Radiology Results: ITS Impressions Abdomen/Pelvis CT 06/07/24 10:25 IMPRESSION: 1. No acute intra-abdominal/pelvic process. 2. Mild left hydronephrosis likely related to chronic UPJ obstruction with unchanged 1-2 mm nonobstructing left renal stone but no evident obstructing stone or mass at the transition point at the ureteropelvic junction. Labs Labs: Laboratory Results - last 24 hr 06/15/24 06/15/24 06/15/24 10:02 11:44 16:46 Sodium 140 Potassium 3.9 Chloride 102 Carbon Dioxide 27 Anion Gap 11 BUN 29 H D Creatinine 2.62 H Estim Creat Clear Calc 26 Estimated GFR 19 L Glucose 88 POC Capillary Glucose 97 123 H Calcium 8.5 Urine Color Urine Appearance Urine pH Ur Specific [place] Urine Protein Urine Glucose (UA) Urine Ketones Ur Blood (Man) Urine Nitrate Urine Bilirubin Urine Urobilinogen Ur Leukocyte Esterase Urine RBC Urine WBC Ur Squamous Epith Cells Urine Bacteria Urine Casts Hyaline Casts 06/15/24 06/15/24 06/15/24 17:46 20:58 21:23 Sodium Potassium Chloride Carbon Dioxide Anion Gap BUN Creatinine Estim Creat Clear Calc Estimated GFR Glucose POC Capillary Glucose 43 L* 91 Calcium Urine Color Dark yellow Urine Appearance Cloudy H Urine pH 5.0 Ur Specific [place] 1.021 Urine Protein 1+ H Urine Glucose (UA) Negative Urine Ketones Trace H Ur Blood (Man) 3+ H Urine Nitrate Negative Urine Bilirubin Negative Urine Urobilinogen 1.0 Ur Leukocyte Esterase Trace H Urine RBC 51-100 H Urine WBC 6-10 H Ur Squamous Epith Cells Moderate Urine Bacteria 1+ H Urine Casts >20 Hyaline Casts Present 06/16/24 06/16/24 06/16/24 00:40 06:38 07:48 Sodium 138 Potassium 3.6 Chloride 103 Carbon Dioxide 24 Anion Gap 11 BUN 30 H Creatinine 1.50 H Estim Creat Clear Calc 44 Estimated GFR 37 L Glucose 144 H POC Capillary Glucose 117 H 108 H Calcium 8.4 Urine Color Urine Appearance Urine pH Ur Specific [place] Urine Protein Urine Glucose (UA) Urine Ketones Ur Blood (Man) Urine Nitrate Urine Bilirubin Urine Urobilinogen Ur Leukocyte Esterase Urine RBC Urine WBC Ur Squamous Epith Cells Urine Bacteria Urine Casts Hyaline Casts 06/16/24 08:41 Sodium Potassium Chloride Carbon Dioxide Anion Gap BUN Creatinine Estim Creat Clear Calc Estimated GFR Glucose POC Capillary Glucose 96 Calcium Urine Color Urine Appearance Urine pH Ur Specific [place] Urine Protein Urine Glucose (UA) Urine Ketones Ur Blood (Man) Urine Nitrate Urine Bilirubin Urine Urobilinogen Ur Leukocyte Esterase Urine RBC Urine WBC Ur Squamous Epith Cells Urine Bacteria Urine Casts Hyaline Casts
[2024-06-16 11:44] LABS: Glucose Point of Care 100 mg/dl (65-105)
[2024-06-16 14:00] VITALS: BP 118/61; PULSE 86; RESP 18; TEMP 36.5; O2SAT 98
[2024-06-16] MEDS: LOPERAMIDE HCL 2 MG CAPSULE PO (16:13)
[2024-06-16 16:29] LABS: Glucose Point of Care 112 mg/dl (65-105)
[2024-06-16] MEDS: LORazepam (*CRX) 0.5 MG TABLET PO (17:52)
[2024-06-16] MEDS: traZODone HCL 50 MG TABLET 200 MG PO (20:18)
[2024-06-16] MEDS: diphenhydrAMINE HCl CAP 25 MG CAPSULE PO (20:18)
[2024-06-16] MEDS: LORazepam (*CRX) 1 MG TABLET PO (20:18)
[2024-06-16] MEDS: oxyCODONE/ACETAMINOPHEN (*CRX) 5-325 MG TABLET 1 TABLET PO (20:18)
[2024-06-16] MEDS: ATORVASTATIN 40 MG TABLET 80 MG PO (20:18)
[2024-06-16] MEDS: buPROPion HCL SR (12 HR) 150 MG TAB PO (20:19)
[2024-06-16 20:20] VITALS: PULSE 86; RESP 18; O2SAT 98
[2024-06-16 21:33] LABS: Glucose Point of Care 142 mg/dl (65-105)
[2024-06-16 21:55] VITALS: BP 119/56; PULSE 83; RESP 16; TEMP 36.9; O2SAT 98
[2024-06-17] MEDS: METOCLOPRAMIDE HCL INJ 10 MG/2 ML VIAL 5 MG IV PUSH ×3 (00:38→12:53)
[2024-06-17] MEDS: LACTATED RINGERS 1,000 ML 125 ML IV CONT (04:23)
[2024-06-17 05:38] VITALS: BP 102/65; PULSE 84; RESP 14; TEMP 36.2; O2SAT 99
[2024-06-17] MEDS: LEVOTHYROXINE SODIUM 100 MCG TABLET 200 MCG PO (05:40)
[2024-06-17] MEDS: oxyCODONE/ACETAMINOPHEN (*CRX) 5-325 MG TABLET 1 TABLET PO ×2 (06:50→12:59)
[2024-06-17 08:22] LABS: Glucose Point of Care 96 mg/dl (65-105)
--- NOTE | 2024-06-17 09:05 | PM.IMPN ---
Progress Note: A&P Assessment and Plan (1) Type 2 diabetes mellitus: Qualifiers: Diabetes mellitus complication status: without complication Diabetes mellitus [facility] [place] use: with [facility] use Qualified Code(s): E11.9 - Type 2 diabetes mellitus without complications; Z79.4 - terminal make up operator (current) use of insulin Code(s): E11.9 - Type 2 diabetes mellitus without complications Status: Acute (2) Hyperglycemia: Code(s): R73.9 - Hyperglycemia, unspecified Status: Acute (3) Hypertriglyceridemia: Code(s): E78.1 - Pure hyperglyceridemia Status: Acute Plan Hypertriglyceridemia: Code(s): E78.1 - Pure hyperglyceridemia Status: Acute Assessment and Plan: Triglyceride levels were not detectable due to blood being lipemic, patient is well known to us at this does happen every time she is here -started patient on insulin infusion with D5 half-normal saline to prevent hypoglycemia -remains on insulin infusion -nephrology following -06/07: status post plasmapheresis x1 patient to get insulin pump from home Abdominal pain: Code(s): R10.9 - Unspecified abdominal pain Status: Acute Assessment and Plan: 06/07: Patient presented with abdominal pain, along with nausea vomiting, triglycerides are not readable, possibly due to blood being lipemic. Lipase could not be resulted due to the blood being lipemic -06/07: CT scan of the abdomen and pelvis: 1. No acute intra-abdominal/pelvic process.2. Mild left hydronephrosis likely related to chronic UPJ obstruction with unchanged 1-2 mm nonobstructing left renal stone but no evident obstructing stone or mass at the transition point at the ureteropelvic junction. Flare up chronic pancreatitis due to hypertriglyceridemia Decreased frequency of Dilaudid IV p.r.n., encourage patient stop using narcotic medication Patient need less necrotic medication today, appetite improving. Repeated triglyceride 452 Lipase negative Nausea & vomiting: Code(s): R11.2 - Nausea with vomiting, unspecified Status: Acute Assessment and Plan: Likely related to pancreatitis, hypertriglyceridemia and also likely gastroparesis -continue anti emetics Poor intake, but appetite is improving Continue Reglan 10 mg q.6 hours scheduled IVONNE Patient has elevated BUN creatinine now trending up in past 3 days, patient cannot tolerate diet. Possible due to dehydration Start lactated Ringer IV f/u UA: Showed UTI, start ceftriaxone 1 g IV daily 06/16 Patient does not have symptom now, IVONNE resolved DC IV fluid, changes cefdinir p.o. Chronic pancreatitis: Onset Date: ~09/02/23 Qualifiers: Pancreatitis type: other Qualified Code(s): K86.1 - Other chronic pancreatitis Code(s): K86.1 - Other chronic pancreatitis Status: Chronic Assessment and Plan: History of chronic pancreatitis, has been admitted multiple times for hypertriglyceridemia leading to pancreatitis Abdomen pain is subsiding. Taper down Dilaudid 1 mg IV q.3 hours p.o., to 0.5 mg q.6 hours IV p.r.n. Continue pancreatic enzymes Type 2 diabetes mellitus: Qualifiers: Diabetes mellitus terminal make up operator insulin use: with [facility] use Diabetes mellitus complication status: without complication Qualified Code(s): E11.9 - Type 2 diabetes mellitus without complications; Z79.4 - group home (current) use of insulin Code(s): E11.9 - Type 2 diabetes mellitus without complications Status: Acute Assessment and Plan: Received insulin infusion, Transition to insulin pump from home. -Accu-Cheks and sliding scale insulin -diabetic diet hemoglobin A1c was 8.3 on 05/03/2024 Glucose is well controlled in the target range Plan DVT prophylaxis: Lovenox Stress ulcer prophylaxis: Protonix Nutrition: Diabetic diet Code Status: Full code Subjective Date/time seen: 06/17/24 09:05 Interval history: I saw examined the patient today, patient has diarrhea, denies abdomen nausea vomiting, appetite improves. Patient is afebrile, blood pressure stable. Labs reviewed, creatinine trending down from 1.5 to 1today Exam Narrative: GENERAL: Pleasant, in no acute distress. Well-nourished. - EYES: EOMI. Anicteric. - HENT: Moist mucous membranes. - LUNGS: Clear to auscultation bilaterally, no wheezing, rhonchi, or rales. - CARDIOVASCULAR: Regular rate and rhythm. No murmur. No JVD. - ABDOMEN: Soft, non-tender and non-distended. No palpable masses. - EXTREMITIES: No edema. Peripheral pulses 2+. Non-tender. - NEUROLOGIC: No focal neurological deficits. CN II-XII grossly intact. - PSYCHIATRIC: Awake, Alert and oriented x 3. Appropriate mood and affect. - SKIN: No rashes or lesions. Warm. - LYMPH: No cervical lymphadenopathy. Objective Data Vital Signs Vital Signs: Vital Signs - 24 hr 06/16/24 09:30 06/16/24 14:00 06/16/24 20:20 Temperature 97.7 F Pulse Rate 86 86 Respiratory Rate 18 18 Blood Pressure 118/61 Pulse Oximetry 98 98 Oxygen Delivery Room Air Room Air 06/16/24 21:55 06/17/24 05:38 Temperature 98.5 F 97.2 F L Pulse Rate 83 84 Respiratory Rate 16 14 Blood Pressure 119/56 L 102/65 Pulse Oximetry 98 99 Oxygen Delivery Intake/Output Intake/Output: Intake & Output 06/14/24 06/15/24 06/16/24 06/17/24 23:59 23:59 23:59 23:59 Intake Total 550 1090 3720 1250 Balance 550 1090 3720 1250 Meds/Results Medications: Active Medications Generic Name Dose Route Start Last Admin Trade Name Freq PRN Reason Stop Dose Admin Acetaminophen 650 mg 06/07/24 07:00 06/13/24 01:58 Acetaminophen 325 Mg Tablet PO 650 mg Q4H PRN Administration Mild Pain (1-3) or Fever Alteplase, Recombinant 2 mg 06/07/24 11:55 Alteplase 2 Mg Vial (Cathflo) IV PUSH ONCE PRN Line Occlusion Lipase/Protease/Amylase 6 cap 06/08/24 12:00 06/16/24 17:52 Lipase/Amylase/Protease 12,000 Units Cap PO 6 cap TIDWM RAPHAEL Administration Aspirin 81 mg 06/09/24 09:00 06/16/24 09:24 Aspirin 81 Mg Enteric Tablet PO 81 mg QAM RAPHAEL Administration Atorvastatin Calcium 80 mg 06/07/24 21:00 06/16/24 20:18 Atorvastatin 40 Mg Tablet PO 80 mg HS RAPHAEL Administration Bupropion HCl 150 mg 06/08/24 21:00 06/16/24 20:19 Bupropion Hcl Sr (12 Hr) 150 Mg Tab PO 150 mg HS RAPHAEL Administration Citalopram Hydrobromide 40 mg 06/09/24 09:00 06/16/24 09:23 Citalopram Hydrobromide 20 Mg Tablet PO 40 mg DAILY RAPHAEL Administration Dextrose 12.5 gm 06/09/24 10:34 Dextrose 50% 25 Gm/50 Ml Syringe IV PUSH PRN PRN Hypoglycemia Protocol Diphenhydramine HCl 25 mg 06/08/24 10:21 06/16/24 20:18 Diphenhydramine Hcl Cap 25 Mg Capsule PO 25 mg Q6H PRN Administration Itching Docusate Sodium 100 mg 06/09/24 07:37 Docusate Sodium 100 Mg Capsule PO Q12HR PRN constipation Enoxaparin Sodium 40 mg 06/08/24 09:00 06/16/24 09:23 Enoxaparin 40 Mg/0.4 Ml Syringe SUB-Q 40 mg DAILY RAPHAEL Administration Fenofibrate 160 mg 06/07/24 09:00 06/16/24 09:24 Fenofibrate 160 Mg Tablet PO 160 mg DAILY RAPHAEL Administration Glucagon 1 mg 06/09/24 10:34 Glucagon For Inj 1 Mg Vial IM PRN PRN Hypoglycemia Protocol Glucose 15 gm 06/09/24 10:34 Glucose Oral Gel 15 Gm Of Glucse In 37.5 Gm Tube PO PRN PRN Hypoglycemia Protocol Hydromorphone HCl 0.5 mg 06/13/24 13:47 06/16/24 22:15 Hydromorphone Hcl Inj (*Crx) 1 Mg/Ml Syr IV PUSH 0.5 mg Q6H PRN Administration Pain Rated 7-10 Dextrose 1,000 mls @ 100 mls/hr 06/09/24 10:34 Dextrose 5% 1,000 Ml IVPB PRN PRN Hypoglycemia Protocol Lactated Ringer's 1,000 mls @ 125 mls/hr 06/15/24 14:10 06/17/24 04:23 Lr - Lactated Ringers Iv IV CONT 125 mls/hr .Q8H RAPHAEL Administration Ceftriaxone Sodium 1 gm in 50 mls @ 100 mls/hr 06/16/24 18:00 06/16/24 17:54 Rocephin 1 Gm/Ns 50 Ml IVPB 100 mls/hr Q24H RAPHAEL Administration Insulin Aspart 4 - 8 units 06/09/24 12:00 06/16/24 17:25 Insulin Aspart (*Bkc) 100 Units/Ml SUB-Q Not Given TIDWM RAPHAEL Protocol Insulin Aspart 2 - 4 units 06/09/24 21:00 06/16/24 21:36 Insulin Aspart (*Bkc) 100 Units/Ml SUB-Q Not Given HS RAPHAEL Protocol Levothyroxine Sodium 200 mcg 06/08/24 06:30 06/17/24 05:40 Levothyroxine Sodium 100 Mcg Tablet PO 200 mcg DAILY@0630 RAPHAEL Administration Loperamide HCl 2 mg 06/16/24 15:59 06/16/24 16:13 Loperamide Hcl 2 Mg Capsule PO 2 mg PRN PRN Administration Diarrhea Lorazepam 1 mg 06/08/24 20:36 06/16/24 20:18 Lorazepam (*Crx) 1 Mg Tablet PO 1 mg QHS PRN Administration sleep Metformin HCl 1,000 mg 06/09/24 09:00 06/16/24 17:52 Metformin Hcl 500 Mg Tablet PO 1,000 mg BID RAPHAEL Administration Metoclopramide HCl 5 mg 06/08/24 12:00 06/17/24 05:40 Metoclopramide Hcl Inj 10 Mg/2 Ml Vial IV PUSH 5 mg Q6HR RAPHAEL Administration Ondansetron HCl 4 mg 06/07/24 07:00 06/16/24 03:55 Ondansetron Inj 4 Mg/2 Ml Vial IV PUSH 4 mg Q4H PRN Administration Nausea Oxycodone/Acetaminophen 1 tablet 06/16/24 16:36 06/17/24 06:50 Oxycodone/Acetaminophen (*Crx) 5-325 Mg Tablet PO 1 tablet Q4H PRN Administration Pain Rated 7-10 Pantoprazole Sodium 40 mg 06/12/24 21:00 06/16/24 20:19 Pantoprazole 40 Mg Tablet PO 40 mg Q12HR RAPHAEL Administration Ticagrelor 90 mg 06/07/24 09:00 06/16/24 20:19 Ticagrelor 90 Mg Tablet PO 90 mg Q12HR RAPHAEL Administration Trazodone HCl 200 mg 06/08/24 21:00 06/16/24 20:18 Trazodone Hcl 50 Mg Tablet PO 200 mg HS RAPHAEL Administration Radiology Results: ITS Impressions Abdomen/Pelvis CT 06/07/24 10:25 IMPRESSION: 1. No acute intra-abdominal/pelvic process. 2. Mild left hydronephrosis likely related to chronic UPJ obstruction with unchanged 1-2 mm nonobstructing left renal stone but no evident obstructing stone or mass at the transition point at the ureteropelvic junction. Labs Labs: Laboratory Results - last 24 hr 06/16/24 06/16/24 06/16/24 11:39 16:22 21:25 POC Capillary Glucose 100 112 H 142 H 06/17/24 08:13 POC Capillary Glucose 96
[2024-06-17 09:55] LABS: Basophils Percent Auto 0.5 % (0.2-1.2); Eosinophils Absolute Auto 0.1 K/mm3 (0-0.3); Eosinophils Percent Auto 1.2 % (0-4.4); Hematocrit 32.6 % (37.0-47.0); Hemoglobin 10.4 g/dL (12.0-15.0); Immature Granulocyte Absolute 0.05 K/mm3 (0.00-0.031); Immature Granulocyte Percent A 0.9 % (0-0.5); Lymphocytes Absolute Auto 1.43 K/mm3 (0.9-3.2); Lymphocytes Percent Auto 25.5 % (18.3-44.2); Mean Corpuscular HGB Conc 31.9 g/dl (32-36); Mean Corpuscular Hemoglobin 29.2 pg (26-34); Mean Corpuscular Volume 91.6 fl (80-100); Mean Platelet Volume 9.2 fl (7.4-10.4); Monocytes Absolute Auto 0.5 K/mm3 (0.1-0.6); Monocytes Percent Auto 8.4 % (2.6-8.5); Neutrophils Absolute Auto 3.6 K/mm3 (1.3-6.7); Neutrophils Percent Auto 63.5 % (45.5-73.1); Platelet Count Result 237 k/mm3 (150-375); Red Blood Count 3.56 M/mm3 (4.2-5.4); Red Cell Distribution Width 14.9 % (11.5-14.5); White Blood Count 5.6 K/mm3 (4.5-10.0)
[2024-06-17 10:11] LABS: Alanine Aminotransferase 13 U/L (6-35); Albumin Level 3.8 g/dL (3.5-5.1); Alkaline Phosphatase 41 U/L (38-126); Anion Gap 9 mmol/L (4-12); Aspartate Amino Transferase 20 U/L (14-36); Bilirubin,Total 0.4 mg/dL (0.2-1.3); Blood Urea Nitrogen 17 mg/dL (7-17); Carbon Dioxide 28 mmol/L (22-30); Chloride 105 mmol/L (98-107); Estimated CRCL calculation 66 ml/min; Estimated Glomerular Filt Rate 59; Glucose 90 mg/dL (65-110); Potassium 4.2 mmol/L (3.4-5.0); Sodium 142 mmol/L (137-145)
[2024-06-17] MEDS: metFORMIN HCL 500 MG TABLET 1000 MG PO (10:19)
[2024-06-17] MEDS: FENOFIBRATE 160 MG TABLET PO (10:19)
[2024-06-17] MEDS: CITALOPRAM HYDROBROMIDE 20 MG TABLET 40 MG PO (10:19)
[2024-06-17] MEDS: TICAGRELOR 90 MG TABLET PO (10:19)
[2024-06-17] MEDS: ASPIRIN 81 MG ENTERIC TABLET PO (10:19)
[2024-06-17] MEDS: PANTOPRAZOLE 40 MG TABLET PO (10:19)
[2024-06-17] MEDS: ENOXAPARIN 40 MG/0.4 ML SYRINGE SUB-Q (10:20)
[2024-06-17] MEDS: HYDROmorphone HCL INJ (*CRX) 1 MG/ML SYR 0.5 MG IV PUSH (10:28)
[2024-06-17 11:21] LABS: Glucose Point of Care 127 mg/dl (65-105)
[2024-06-17] MEDS: LIPASE/AMYLASE/PROTEASE 12,000 UNITS CAP 6 CAP PO (12:53)
--- NOTE | 2024-06-17 13:21 | PM.DS ---
DS: Admitting Diagnosis Discharge Date 06/17 Admitting Diagnosis (1) Type 2 diabetes mellitus: Qualifiers: Diabetes mellitus complication status: without complication Diabetes mellitus termite technician insulin use: with termite technician use Qualified Code(s): E11.9 - Type 2 diabetes mellitus without complications; Z79.4 - predatory animal exterminator (current) use of insulin Code(s): E11.9 - Type 2 diabetes mellitus without complications Status: Acute (2) Hyperglycemia: Code(s): R73.9 - Hyperglycemia, unspecified Status: Acute (3) Hypertriglyceridemia: Code(s): E78.1 - Pure hyperglyceridemia Status: Acute DS: Discharge Diagnosis Discharge Diagnosis (1) Type 2 diabetes mellitus: Qualifiers: Diabetes mellitus senior care insulin use: with senior care use Diabetes mellitus complication status: without complication Qualified Code(s): E11.9 - Type 2 diabetes mellitus without complications; Z79.4 - [facility] (current) use of insulin Code(s): E11.9 - Type 2 diabetes mellitus without complications Status: Acute (2) Hyperglycemia: Code(s): R73.9 - Hyperglycemia, unspecified Status: Acute (3) Hypertriglyceridemia: Code(s): E78.1 - Pure hyperglyceridemia Status: Acute DS: Summary Hospital Course Hospital Course: 48 years old lady with history of hypertriglyceridemia, chronic pancreatitis, diabetes, hypothyroidism, anxiety, present ED with a chief complaint of abdomen pain. Patient has been having progressive abdomen pain since Saturday, and is getting worse gradually. Patient has been having intermittent nausea vomiting. Patient also has some loose stool. Patient denies fever, chills. Patient checks her triglyceride on Saturday, and reach above 800. Patient need intermittent plasmapheresis treatment for hypertriglyceridemia. Patient denies black emesis, bloody stools, fever, chills, headache, chest pain, focal weakness. Patient came to ED for evaluation treatment. Upon arrival to ED, patient is afebrile, blood pressure stable, labs showed anemia hemoglobin 11.1 on the baseline, chemistry unremarkable. Lipase [address] shows no acute intra abdomen pelvis process. ER physician consult set up inspector for plasmapheresis. We admit patient for further evaluation treatment The following med issues have been addressed during hospitalization Hypertriglyceridemia: Code(s): E78.1 - Pure hyperglyceridemia Status: Acute Assessment and Plan: Triglyceride levels were not detectable due to blood being lipemic, patient is well known to us at this does happen every time she is here -started patient on insulin infusion with D5 half-normal saline to prevent hypoglycemia -remains on insulin infusion -nephrology following -06/07: status post plasmapheresis x1 patient to get insulin pump from home Abdominal pain: Code(s): R10.9 - Unspecified abdominal pain Status: Acute Assessment and Plan: 06/07: Patient presented with abdominal pain, along with nausea vomiting, triglycerides are not readable, possibly due to blood being lipemic. Lipase could not be resulted due to the blood being lipemic -06/07: CT scan of the abdomen and pelvis: 1. No acute intra-abdominal/pelvic process.2. Mild left hydronephrosis likely related to chronic UPJ obstruction with unchanged 1-2 mm nonobstructing left renal stone but no evident obstructing stone or mass at the transition point at the ureteropelvic junction. Flare up chronic pancreatitis due to hypertriglyceridemia Decreased frequency of Dilaudid IV p.r.n., encourage patient stop using narcotic medication Patient need less necrotic medication today, appetite improving. Repeated triglyceride 452 Lipase negative Nausea & vomiting: Code(s): R11.2 - Nausea with vomiting, unspecified Status: Acute Assessment and Plan: Likely related to pancreatitis, hypertriglyceridemia and also likely gastroparesis -continue anti emetics Poor intake, but appetite is improving Continue Reglan 10 mg q.6 hours scheduled IVONNE Patient has elevated BUN creatinine now trending up in past 3 days, patient cannot tolerate diet. Possible due to dehydration Start lactated Ringer IV f/u UA: Showed UTI, start ceftriaxone 1 g IV daily 06/16 Patient does not have symptom now, IVONNE resolved DC IV fluid, changes cefdinir p.o. Chronic pancreatitis: Onset Date: ~09/02/23 Qualifiers: Pancreatitis type: other Qualified Code(s): K86.1 - Other chronic pancreatitis Code(s): K86.1 - Other chronic pancreatitis Status: Chronic Assessment and Plan: History of chronic pancreatitis, has been admitted multiple times for hypertriglyceridemia leading to pancreatitis Abdomen pain is subsiding. Taper down Dilaudid 1 mg IV q.3 hours p.o., to 0.5 mg q.6 hours IV p.r.n. Continue pancreatic enzymes Type 2 diabetes mellitus: Qualifiers: Diabetes mellitus senior care insulin use: with senior care use Diabetes mellitus complication status: without complication Qualified Code(s): E11.9 - Type 2 diabetes mellitus without complications; Z79.4 - predatory animal exterminator (current) use of insulin Code(s): E11.9 - Type 2 diabetes mellitus without complications Status: Acute Assessment and Plan: Received insulin infusion, Transition to insulin pump from home. -Accu-Cheks and sliding scale insulin -diabetic diet hemoglobin A1c was 8.3 on 05/03/2024 Glucose is well controlled in the target range Plan DVT prophylaxis: Lovenox Stress ulcer prophylaxis: Protonix Nutrition: Diabetic diet Code Status: Full code Time Spent with Patient Time attestation: Total time spent providing and/or coordinating discharge services: Exam Narrative: GENERAL: Pleasant, in no acute distress. Well-nourished. - EYES: EOMI. Anicteric. - HENT: Moist mucous membranes. - LUNGS: Clear to auscultation bilaterally, no wheezing, rhonchi, or rales. - CARDIOVASCULAR: Regular rate and rhythm. No murmur. No JVD. - ABDOMEN: Soft, non-tender and non-distended. No palpable masses. - EXTREMITIES: No edema. Peripheral pulses 2+. Non-tender. - NEUROLOGIC: No focal neurological deficits. CN II-XII grossly intact. - PSYCHIATRIC: Awake, Alert and oriented x 3. Appropriate mood and affect. - SKIN: No rashes or lesions. Warm. - LYMPH: No cervical lymphadenopathy. DS: Data Data Completed and Pending Labs on day of discharge: Labs from last 24 hours 06/17/24 06/17/24 06/17/24 11:14 09:43 08:13 WBC 5.6 RBC 3.56 L Hgb 10.4 L Hct 32.6 L MCV 91.6 MCH 29.2 MCHC 31.9 L RDW 14.9 H Plt Count 237 MPV 9.2 Immature Gran % (Auto) 0.9 H Neut % (Auto) 63.5 Lymph % (Auto) 25.5 Gooding % (Auto) 8.4 Eos % (Auto) 1.2 Baso % (Auto) 0.5 Lymph # (Auto) 1.43 Gooding # (Auto) 0.5 Eos # (Auto) 0.1 Baso # (Auto) 0.0 Abs Immat Gran (auto) 0.05 H Absolute Neuts (auto) 3.6 Absolute Nucleated RBC 0.000 Nucleated RBC % 0.0 Sodium 142 Potassium 4.2 Chloride 105 Carbon Dioxide 28 Anion Gap 9 BUN 17 D Creatinine 1.01 H Estim Creat Clear Calc 66 Estimated GFR 59 Glucose 90 POC Capillary Glucose 127 H 96 Calcium 9.0 Total Bilirubin 0.4 AST 20 ALT 13 Alkaline Phosphatase 41 Total Protein 6.0 L Albumin 3.8 06/16/24 06/16/24 21:25 16:22 WBC RBC Hgb Hct MCV MCH MCHC RDW Plt Count MPV Immature Gran % (Auto) Neut % (Auto) Lymph % (Auto) Gooding % (Auto) Eos % (Auto) Baso % (Auto) Lymph # (Auto) Gooding # (Auto) Eos # (Auto) Baso # (Auto) Abs Immat Gran (auto) Absolute Neuts (auto) Absolute Nucleated RBC Nucleated RBC % Sodium Potassium Chloride Carbon Dioxide Anion Gap BUN Creatinine Estim Creat Clear Calc Estimated GFR Glucose POC Capillary Glucose 142 H 112 H Calcium Total Bilirubin AST ALT Alkaline Phosphatase Total Protein Albumin Discharge Plan Discharge Attending physician on discharge: Karly Monterroso Consulting providers: Krystin Castellano; Eli Kaminski Discharging Clinician: Karly Monterroso Anticipated Discharge Date/Time: 06/17/24 12:01 Patient Disposition: Home, Self-Care Activity: as tolerated Diet: as tolerated and diabetic Patient Instructions: Antibiotic Form Patient Language: Telugu Stand Alone Forms: General Discharge Information Follow-up/Referrals: Eli Kaminski MD [Physician] - (See set up inspector at scheduled appointment) UNKNOWN,DOCTOR [Primary Care Provider] - (See primary care doctor in 1 week ) Discharge Medications: New oxycodone-acetaminophen 2.5-325 mg tablet 1 tablet PO Q8H PRN (Reason: pain) Qty: 14 0RF Continued metformin 500 mg tablet 1,000 mg PO BID Qty: 180 1RF Rx Instructions: with morning & evening meals pantoprazole [Protonix] 40 mg tablet,delayed release (DR/EC) 40 mg PO BID Qty: 30 0RF levothyroxine 200 mcg tablet 200 mcg PO DAILY Creon 36,000-114,000- 180,000 unit capsule,delayed release(DR/EC) 2 cap PO TIDWMEAL Rx Instructions: Take 2 capsules with meals and 1 capsule with any snacks. aspirin 81 mg Tablet,Delayed Release (Dr/Ec) 81 mg PO QAM Qty: 30 0RF citalopram 40 mg tablet 40 mg PO DAILY Rx Instructions: TAKE 1 TABLET BY MOUTH EVERY DAY bupropion HCl 150 mg tablet sustained-release 12 hr 150 mg PO HS ondansetron 4 mg tablet,disintegrating 4 mg PO Q8H PRN (Reason: nausea and vomiting) Qty: 10 0RF insulin aspart U-100 [Novolog U-100 Insulin aspart] 100 unit/mL solution See Rx Instructions .ROUTE .COMPLEX Rx Instructions: infused via insulin pump metoprolol succinate 25 mg tablet extended release 24 hr 12.5 mg PO DAILY docusate sodium 100 mg Capsule 100 mg PO Q12HR PRN (Reason: constipation) Qty: 20 0RF cyclobenzaprine 10 mg tablet 10 mg PO HS PRN (Reason: muscle spasm) Qty: 10 0RF metoclopramide HCl 5 mg tablet 5 mg PO TIDWM Brilinta 90 mg tablet 90 mg PO BID Qty: 180 0RF (DME) pen needle, diabetic [BD Ultra-Fine Diandra Pen Needle] 32 gauge x 5/32 needle See Rx Instructions .ROUTE .MEDSUPPLY Qty: 1200 12RF Rx Instructions: 4 times daily (DME) insulin syringe-needle U-100 [BD Insulin Syringe Ultra-Fine] 0.3 mL 31 gauge x 5/16 syringe See Rx Instructions .ROUTE .MEDSUPPLY Qty: 100 12RF Rx Instructions: 4 times a day atorvastatin 80 mg tablet 80 mg PO HS Qty: 90 1RF lorazepam 1 mg tablet 1 mg PO QHS PRN (Reason: sleep) Qty: 90 0RF fenofibrate 160 mg tablet 160 mg PO DAILY Qty: 90 1RF trazodone 100 mg tablet 200 mg PO HS Qty: 180 1RF Date of admission: 06/08/24 09:27 Primary Care Provider: UNKNOWN,DOCTOR Admitting Provider: Bri Newsome Attending physician on admission: Bri Newsome Condition: Stable
--- NOTE | 2024-06-19 12:31 | PCCDE ---
06/19/24: 12:30 pm: Courtesy follow up call message left. FJ
== END 2024-06-17 12:02 | disposition home or self-care (01) | DRG 642 ==
LOC: ANHED 06-07 04:12 → ANHICU 06-07 07:58 → ANH3MEDSUR 06-17 12:02 → ANHICU 06-18 08:56
PROVIDERS: Internal Medicine; Internal Medicine Nephrology; Physician Assistant; Admitting Provider General Practice; Emergency Provider Student in an Organized Health Care Education/Training Program; Visit Provider Hospitalist
DX: E78.1 Pure hyperglyceridemia (principal); K86.1 Other chronic pancreatitis; N17.9 Acute kidney failure, unspecified; N39.0 Urinary tract infection, site not specified; I10 Essential (primary) hypertension; I25.10 Atherosclerotic heart disease of native coronary artery without angina pectoris; E83.42 Hypomagnesemia; E83.51 Hypocalcemia; E78.6 Lipoprotein deficiency; E06.3 Autoimmune thyroiditis; E78.3 Hyperchylomicronemia; E11.9 Type 2 diabetes mellitus without complications; E28.2 Polycystic ovarian syndrome; K21.9 Gastro-esophageal reflux disease without esophagitis; F41.9 Anxiety disorder, unspecified; F17.210 Nicotine dependence, cigarettes, uncomplicated; Z96.41 Presence of insulin pump (external) (internal); Z20.822 Contact with and (suspected) exposure to COVID-19; Z79.4 Long term (current) use of insulin; Z95.5 Presence of coronary angioplasty implant and graft
CPT/HCPCS: 36415; 36514; 36569; 74177; 80048; 80053; 81001; 81003; 82948; 83690; 83735; 84100; 84478; 84484; 85025; 85027; 87637; 87641; 93005; 96361; 96365; 96366; 96375; 96376; 97110; 97165; 99285; A9270; C1751; G0378; J0696; J1171; J1630; J1644; J1650; J1815; J1885; J2405; J2470; J2765; J3475; J7030; J7120; P9045; Q9967

== ENCOUNTER 2024-06-19 19:06 | Inpatient (IN) | payer MEDICARE, SELFPAY ==
--- NOTE | ~2024-06-19 | XR_ITS ---
EXAMINATION: XR ankle LT 2V DATE: 06/19/2024 19:42 INDICATION: Left ankle injury. TECHNIQUE: 2 views of left ankle were obtained. COMPARISON: None. FINDINGS: There is a transverse fracture of medial malleolus. The distal fracture fragment demonstrat es 3 mm lateral displacement. There is a fracture of posterior malleolus with 3 mm gap at the articul ar surface. There is an oblique fracture of distal fibula with medial aspect of the fracture line ramiro roximately 3.5 cm proximal to the level of the tibial plafond. The distal fracture fragment demonstra torri 14 degrees posterior angulation. Joint spaces are normal. IMPRESSION: 1. Trimalleolar ankle fracture. Reviewed, dictated and finalized at location A. ING MACHINE OPERATOR
--- NOTE | ~2024-06-19 | XR_ITS ---
EXAMINATION: XR surgery orthopedic DATE: 06/20/2024 11:32 INDICATION: ORIF left ankle fracture TECHNIQUE: 3 fluoroscopic images of the left ankle were obtained during procedure performed by Dr. Terrie pavon. Radiologist was not present for the imaging or procedure. The amount of fluoroscopy time used during this procedure was 0.9 minutes. Total DAP was 0.404 Gycm^2 COMPARISON: 06/19/2024 FINDINGS: Interval open reduction internal fixation of the previously noted trimalleolar fracture. The fracture is been reduced to essentially anatomic alignment. The medial malleolar fractures fixed with cannula noble lag screw. The lateral malleolus fracture is fixed with interfragmentary screw and a lateral plat e and screws. The posterior malleolus fractures remains without internal fixation. No new fractures i dentified. Ankle mortise is congruent. Joint spaces are normal. IMPRESSION: 1. Essentially anatomic alignment post open reduction internal fixation of trimalleolar fracture of t he left ankle. Reviewed, dictated and finalized at location A. ER LAW ASSOCIATE IMPRESSION: 1. Essentially anatomic alignment post open reduction internal fixation of trim alleolar fracture of the left ankle.
[2024-06-19 19:10] VITALS: BP 141/79; PULSE 89; RESP 12; TEMP 36.9; O2SAT 97
[2024-06-19 19:27] VITALS: BP 141/79; PULSE 87; RESP 18; O2SAT 97
--- OUTSIDE RECORDS SUMMARY | 2024-06-19 19:28 | XMS_ITS | Encounter Summary ---
Author Organization [facility] Address 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 Gender Identity Not on file Sexual Orientation [...] [facility] [id number] [place] [address] Marlys Mayer MD [address] [place] [address] documented as of this encounter Visit Diagnoses Not on filedocumented in this encounter Additional Health Concerns Infection Onset Date Last Indicated Resolved Time R/O GI Pathogen 09/19/2023 09/19/2023 09/21/2023 7 :33 AM CDT documented as of this encounter Care Teams Silver Lap Machine Tender Relationship Specialty Start Date End Date Guerrero Middleton PA-C PCP - General Physician Animal Science Instructor 02/13/18 documented as of this encounter
--- OUTSIDE RECORDS SUMMARY | 2024-06-19 19:29 | XMS_ITS | Clinical Summary ---
Author Organization 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 Gender Identity Not on file Sexual Orientation Not on file Obstetrics History Last Filed Vital Signs Vital Sign Reading Time Taken Comments Blood Pressure 101/62 06/05/2023 11:38 AM PRACTICE PHYSICIAN Pulse 76 06/05/2023 11:38 AM PRACTICE PHYSICIAN Temperature 36.4 C (97.5 F) 06/05/2023 10:35 AM PRACTICE PHYSICIAN Respiratory Rate 22 06/05/2023 11:38 AM PRACTICE PHYSICIAN Oxygen Saturation 94% 06/05/2023 11:38 AM PRACTICE PHYSICIAN Inhaled Oxygen Concentration - - Weight 81.6 kg (180 lb) 06/05/2023 8:58 AM PRACTICE PHYSICIAN Height 165.1 cm (5' 5 ) 06/05/2023 8:58 AM PRACTICE PHYSICIAN Body Mass Index 29.95 06/05/2023 8:58 AM PRACTICE PHYSICIAN Plan of Treatment Health Maintenance Due Date Last Done Comments Breast Cancer Screening-Mammogram 1975 Colon Cancer Screening-Colonoscopy 1975 Depression Screening 1975 Hepatitis C Screening 1975 DTaP/Tdap/Td Vaccine (1 - Tdap) 11/24/1986 Hepatitis B Screening 11/24/1993 Regular Well Visit/Exam 18-64 11/24/1993 Pneumococcal vaccine <65 (2 of 2 - PPSV23) 07/04/2016 05/09/2016 Covid-19 Vaccine ( - 2023-2 5 season) 2023 03/08/2023, 03/04/2021, 07/20/2020, Additional history exists Influenza Vaccine (#1) 2023 , 04/09/2022, 03/04/2021, Additional history exists Insurance ANGY [facility]KE [facility] [employer] [facility] [employer] [facility] [employer] Care Teams Pollution Control Chemist Relationship Specialty Start Date End Date Mauri Jaime MD [address] [facility] [address] [place] [address] PCP - General Internal Medicine 05/28/23 Guerrero Middleton PA [address] [facility] [address] [place] [address] 05/28/23
--- OUTSIDE RECORDS SUMMARY | 2024-06-19 19:29 | XMS_ITS | Clinical Summary ---
Author Organization [facility] Address [address] [place] [address] Phone Care Team Providers Care Explosive Ordnance Specialist Name Role Phone Guerrero Middleton PA-C [...] 48h post LHC 4 Active Blood-Glucose Sensor ([employer] G7 Sensor) Device 4 Active buPROPion HCL [...] be different from the original. Marlys Mayer MD--Relations Liaison ([facility] @ ) Problem [...] Data STL ABSTRACTION Provider, Abstract 06/02/2024 Abstract [facility] At [address] [place] [address] Marlys Mayer MD 06/02/2024 Telephone [facility] [address] [place] [address] Marlys Mayer MD Medical Records 05/27/2024 External Device Data STL ABSTRACTION Provider, Abstract 05/12/2024 External Device Data STL ABSTRACTION Provider, Abstract 04/21/2024 External Device Data STL ABSTRACTION Provider, Abstract 04/20/2024 3:00 PM CHURCH HISTORY PROFESSOR Office Visit [facility] - [facility] 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 (Primary Dx); Type 1 diabetes mellitus without complication (CMS/HCC); Chylomicronemia syndrome; Chronic recurrent pancreatitis ([facility]/HCC) 04/14/2024 Abstract [facility] [address] [place] [address] Marlys Mayer MD 03/23/2024 Telephone [facility] [address] [place] [address] Marlys Mayer MD Medication Question from Last [...] on file Legal Sex Female 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 Gender Identity Not on file Sexual Orientation Not on file Occupation Industry Job Start Date Job End Date Not on file Not on file Not on file Not on file Last Filed Vital Signs Vital Sign Reading Time Taken Comments Blood Pressure 112/70 04/20/2024 3:12 PM CHURCH HISTORY PROFESSOR Pulse 103 04/20/2024 3:12 PM CHURCH HISTORY PROFESSOR Temperature 36.5 C (97.7 F) 11/29/2023 10:58 AM CDT Respiratory Rate 21 11/29/2023 6:15 PM CDT Oxygen Saturation 96% 04/20/2024 3:12 PM CHURCH HISTORY PROFESSOR Inhaled Oxygen Concentration - - Weight 86.6 kg (191 lb) 04/20/2024 3:12 PM CHURCH HISTORY PROFESSOR Height 165.1 cm (5' 5 ) 04/20/2024 3:12 PM CHURCH HISTORY PROFESSOR Body Mass Index 31.78 04/20/2024 3:12 PM CHURCH HISTORY PROFESSOR Plan of Treatment Upcoming Encounters Date Type Department Care Team (Late st Contact Info) Description 09/14/2024 3:00 PM CDT [facility] [address] [place] [address] Marlys Mayer MD [address] [place] [address] Health Maintenance Due Date Last [...] history exists Medical Devices Implanted Type Area Coffee Grower Device Identifier Shelf Expiration Date Model / Serial / Lot Cath Hemodlys Glidespath 23cm [id number] Implanted:Qty : 1 on 04/10/2018 by Kayla Sheffield MD Catheter CR BARD- [employer] [id number] 08/27/2019 [id number] / / [id number] Description:14.5fr x 23cm; R IJ Port-10/29/2018 Implanted:Qty : 2 on 10/29/2018 by Laverne Willoughby MD Explanted:Qty : 1 on 02/18/2019 by Michael Powell MD Port Right: Chest Wall CR BARD- ACCESS SYS 07/28/2019 / / [id number] Description:two 9.6fr fower flow apheresis ports placed by Dr. Willoughby Port- 0 Implanted:Qty : 1 on 05/11/2019 by Alfa Forrest MD Port Left: Chest Wall CR BARD- ACCESS SYS 08/26/2020 / / [id number] Stent Synergy Xd 4.0x12mm Evrlms Elut [id number] - [id number] Implanted:Qty : 1 on 11/29/2023 by Miguel Lewis MD at [facility] Stent N/A: Coronary [employer] [id number] 03/19/2024 [id number] / / [id number] Procedures Procedure Name Priority Date/Time Associated Diagnosis Comments LDL CHOLESTEROL, DIRECT Stat 09/19/2023 12:59 AM CDT HEMOGLOBIN A1C Routine 09/18/2023 10:18 PM CDT from Last 3 Months or Most Recently Relevant to Health Maintenance Results * LDL CHOLESTEROL, DIRECT (09/19/2023 12:59 AM CDT) LDL CHOLESTEROL, DIRECT 47 <100 mg/dL 09/19/2023 5:52 AM CDT [facility] [employer] [facility] Blood Venipuncture / Unknown 09/19/2023 12:59 AM CDT 09/19/2023 1:09 AM CDT Narrative [facility] [employer] [facility] - 09/19/2023 5:52 AM CDT [...] [place] MD CHEMISTRY ORDERABLES Fin al Result [facility] [employer] [facility]# [id number] [address] [facility] [place] [place] [id number] * (ABNORMAL) HEMOGLOBIN A1C (09/18/2023 10:18 PM CDT) HEMOGLOBIN A1C 9.7(H) <5.7 % 09/19/2023 10:59 AM CDT [facility] [employer] [facility] EST. AVG GLUCOSE, A1C 232 mg/dL 09/19/2023 10:59 AM CDT [facility] [employer] [facility] Blood Venipuncture / Unknown 09/18/2023 10:18 PM CDT 09/18/2023 10:26 PM CDT Narrative [facility] - [facility] - 09/19/2023 10:59 AM CDT HGB A1C INTERPRETATION NORMAL: <5.7% PRE-DIABETES: 5.7 - 6.4% DIABETES: 6.5% OR GREATER us Herlinda Mederos DO CHEMISTRY ORDERABLES Final Resul t [facility] CLIA# [id number] [address] [place] [id number] from Last 3 Months or Most Recently Relevant to Health Maintenance Insurance AETNA O [facility] RX AETNA Medicare Part D RX MED[employer]O PLANS (INTERNAL) [facility] RX MEDR[employer]O PLANS (INTERNAL) [facility] AETNA PPO MCR Advance Directives For more information, please contact: [phone] * Full Code (Latest Code Status on [...] 12:11 AM 01/02/2021 4:26 PM Care Teams Explosive Ordnance Specialist Relationship Specialty Start Date End Date Guerrero Middleton PA-C PCP - General Physician Water Safety Instructor 02/13/18
--- OUTSIDE RECORDS SUMMARY | 2024-06-19 19:29 | XMS_ITS | Encounter Summary ---
Author Organization [facility] Address 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 Gender Identity Not on file Sexual [...] Visit [facility] - [address] [place] [address] Marlys Mayer MD [address] [place] [address] documented as of this encounter Visit Diagnoses Not on filedocumented in this encounter Additional Health Concerns Infection Onset Date Last Indicated Resolved Time R/O GI Pathogen 09/19/2023 09/19/2023 09/21/2023 7 :33 AM CDT documented as of this encounter Care Teams Automobile And Property Underwriter Relationship Specialty Start Date End Date Guerrero Middleton PA-C PCP - General Physician Butadiene Convertor Operator 02/13/18 documented as of this encounter
--- OUTSIDE RECORDS SUMMARY | 2024-06-19 19:29 | XMS_ITS | Encounter Summary ---
Author Organization [facility] Address [address] [place] [address] Care Team Providers Care Behavioral Medical Director Name Role Phone Guerrero Middleton PA-C Primary Care Provide r Reason for Visit * Reason Onset Date Comments OTHER 11/21/2021 Encounter Details Date Type Department Care Team (Late st Contact Info) Description 11/21/2021 Telephone [facility] Oncology [address] [place] [address] Nicole Rosas MD [address] 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 Gender Identity Not on file Sexual Orientation [...] - [facility] [address] [place] [address] Marlys Mayer MD [address] [place] [address] documented as of this encounter Visit Diagnoses Not on filedocumented in this encounter Additional Health Concerns Infection Onset Date Last Indicated Resolved Time R/O GI Pathogen 09/19/2023 09/19/2023 09/21/2023 7 :33 AM CDT documented as of this encounter Care Teams Behavioral Medical Director Relationship Specialty Start Date End Date Guerrero Middleton PA-C PCP - General Physician Mathematical Scientist 02/13/18 documented as of this encounter
--- OUTSIDE RECORDS SUMMARY | 2024-06-19 19:29 | XMS_ITS | Clinical Summary ---
Author Organization [facility] Address [address] [address] Phone Care Team Providers Care Risk Control Analyst Name Role Phone Jose G Palmer MD Unavailable [phone] Guerrero Middleton Primary Care Provider Social History [...] to complete this topic Insurance Care Teams Risk Control Analyst Relationship Specialty Start Date End Date Guerrero Middleton PAC [address] [place] [address] PCP - General Physician Business Reporting Developer 12/10/16 Jose G Palmer MD Consulting Physician Gastroenterology 12/10/16
--- OUTSIDE RECORDS SUMMARY | 2024-06-19 19:29 | XMS_ITS | Referral Summary ---
Author Organization [facility] Address [address] [place] [address] Care Team Providers Care Sanitation Technician Name Role Phone Mauri Jaime MD Primary Care Provider [phone] Guerrero Middleton PA Unavailable [phone] Allergies Active Allergy Reactions Criticality Noted Date [...] tablet TAKE 1 TABLET BY MOUTH EVERY PHYSICAL SECURITY SPECIALIST 022 Active fenofibrate (TRIGLIDE) 160 mg tablet [...] on file Legal Sex Female 5:05 AM OCCUPATIONAL HYGIENIST Gender Identity Not on file Sexual Orientation Not on file Last Filed Vital Signs Vital Sign Reading Time Taken Comments Blood Pressure 101/62 06/05/2023 11:38 AM OCCUPATIONAL HYGIENIST Pulse 76 06/05/2023 11:38 AM OCCUPATIONAL HYGIENIST Temperature 36.4 C (97.5 F) 06/05/2023 10:35 AM OCCUPATIONAL HYGIENIST Respiratory Rate 22 06/05/2023 11:38 AM OCCUPATIONAL HYGIENIST Oxygen Saturation 94% 06/05/2023 11:38 AM OCCUPATIONAL HYGIENIST Inhaled Oxygen Concentration - - Weight 81.6 kg (180 lb) 06/05/2023 8:58 AM OCCUPATIONAL HYGIENIST Height 165.1 cm (5' 5 ) 06/05/2023 8:58 AM OCCUPATIONAL HYGIENIST Body Mass Index 29.95 06/05/2023 8:58 AM OCCUPATIONAL HYGIENIST Plan of Treatment Not on file Insurance [facility] ADVANTRA [facility] AD[facility] Care Teams Sanitation Technician Relationship Specialty Start Date End Date Mauri Jaime MD [address] [place] [address] PCP - General Internal Medicine 05/28/23 Guerrero Middleton PA [address] [place] [address] 05/28/23
--- OUTSIDE RECORDS SUMMARY | 2024-06-19 19:29 | XMS_ITS | Encounter Summary ---
Author Organization [facility] Address 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 Gender Identity Not on file Sexual Orientation Not on file Occupation Industry Job Start Date Job End Date Not on file Not on file Not on file Not on file documented as of this encounter Plan of Treatment Upcoming Encounters Date Type Department Care Team (Late st Contact Info) Description 09/14/2024 3:00 PM CDT Office Visit [facility] Heart and Vascular - [facility] [address] [place] [address] Marlys Mayer MD [address] [place] [address] documented as of this encounter Visit Diagnoses Not on filedocumented in this encounter Additional Health Concerns Infection Onset Date Last Indicated Resolved Time R/O GI Pathogen 09/19/2023 09/19/2023 09/21/2023 7 :33 AM CDT documented as of this encounter Care Teams Shirt Operator Relationship Specialty Start Date End Date Guerrero Middleton PA-C PCP - General Physician Hospital Mortician 02/13/18 documented as of this encounter
--- OUTSIDE RECORDS SUMMARY | 2024-06-19 19:29 | XMS_ITS | Encounter Summary ---
Author Organization [facility] Address [address] [place] [address] Care Team Providers Care Mill Machinist Name Role Phone Guerrero Middleton PA-C Primary Care Provide r Encounter Details Date Type Department Care Team (Late st Contact Info) Description 10/13/2021 Telephone [facility] Oncology [address] [place] [address] Phoenix Riddle MD [address] [facility] [place] [address] Social History Tobacco Use Types [...] often do you attend chur ch or scientologist services? 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 Gender Identity Not on file [...] [facility] Heart and Vascular - [address] [place] [address] Marlys Mayer MD [address] [place] [address] documented as of this encounter Visit Diagnoses Not on filedocumented in this encounter Additional Health Concerns Infection Onset Date Last Indicated Resolved Time R/O GI Pathogen 09/19/2023 09/19/2023 09/21/2023 7 :33 AM CDT documented as of this encounter Care Teams Mill Machinist Relationship Specialty Start Date End Date Guerrero Middleton PA-C PCP - General Physician Service Sprinkler Helper 02/13/18 documented as of this encounter
--- OUTSIDE RECORDS SUMMARY | 2024-06-19 19:29 | XMS_ITS | Encounter Summary ---
Author Organization [facility] Address [address] [place] [address] Care Team Providers Care Rewards Consultant Name Role Phone Guerrero Middleton PA-C Primary Care Provide r Encounter Details Date Type Department Care Team (Late st Contact Info) Description 03/14/2022 Telephone [facility] Donor Services [facility] [address] [place] [address] Phoenix Riddle MD [address] [facility] [place] [address] Social History Tobacco Use Types [...] often do you attend chur ch or mu-ism services? Never 08/21/2018 Do you [...] on file Legal Sex Female 6:07 AM AVIAN KEEPER Gender Identity Not on file Sexual Orientation Not on file Occupation Industry Job Start Date Job End Date Not on file Not on file Not on file Not on file documented as of this encounter Plan of Treatment Upcoming Encounters Date Type Department Care Team (Late st Contact Info) Description 09/14/2024 3:00 PM CDT Office Visit [facility] [address] [place] [address] Marlys Mayer MD [address] [place] [address] documented as of this encounter Visit Diagnoses Not on filedocumented in this encounter Additional Health Concerns Infection Onset Date Last Indicated Resolved Time R/O GI Pathogen 09/19/2023 09/19/2023 09/21/2023 7 :33 AM CDT documented as of this encounter Care Teams Rewards Consultant Relationship Specialty Start Date End Date Guerrero Middleton PA-C PCP - General Physician Hand Cloth Folder 02/13/18 documented as of this encounter
--- OUTSIDE RECORDS SUMMARY | 2024-06-19 19:29 | XMS_ITS | Encounter Summary ---
Author Organization [facility] Address [address] [place] [address] Care Team Providers Care Procurement Internship Name Role Phone Guerrero Middleton PA-C Primary Care Provide r Encounter Details Date Type Department Care Team (Late st Contact Info) Description 10/26/[address] 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 Gender Identity Not on file Sexual Orientation [...] and Vascular - [place] [address] [place] [address] Marlys Mayer MD [address] [place] [address] documented as of this encounter Visit Diagnoses Not on filedocumented in this encounter Additional Health Concerns Infection Onset Date Last Indicated Resolved Time R/O GI Pathogen 09/19/2023 09/19/2023 09/21/2023 7 :33 AM CDT documented as of this encounter Care Teams Procurement Internship Relationship Specialty Start Date End Date Guerrero Middleton PA-C PCP - General Physician Motor And Generator Assembler 02/13/18 documented as of this encounter
--- OUTSIDE RECORDS SUMMARY | 2024-06-19 19:29 | XMS_ITS | Encounter Summary ---
Author Organization [facility] Address 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 Gender Identity Not on file Sexual Orientation [...] [facility] - [place] [address] [place] [address] Marlys Mayer MD [address] [place] [address] documented as of this encounter Visit Diagnoses Not on filedocumented in this encounter Additional Health Concerns Infection Onset Date Last Indicated Resolved Time R/O GI Pathogen 09/19/2023 09/19/2023 09/21/2023 7 :33 AM CDT documented as of this encounter Care Teams Compounding Assistant Relationship Specialty Start Date End Date Guerrero Middleton PA-C PCP - General Physician Radio Operator Ground 02/13/18 documented as of this encounter
--- OUTSIDE RECORDS SUMMARY | 2024-06-19 19:29 | XMS_ITS | Encounter Summary ---
Author Organization [facility] Address 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 Gender Identity Not on file Sexual Orientation [...] [facility] [address] [place] [address] Marlys Mayer MD [address] [place] [address] documented as of this encounter Visit Diagnoses Not on filedocumented in this encounter Additional Health Concerns Infection Onset Date Last Indicated Resolved Time R/O GI Pathogen 09/19/2023 09/19/2023 09/21/2023 7 :33 AM CDT documented as of this encounter Care Teams [employer] Police Relationship Specialty Start Date End Date Guerrero Middleton PA-C PCP - General Physician Thread Reeler 02/13/18 documented as of this encounter
--- NOTE | 2024-06-19 19:43 | ED.LOWEXIN ---
HPI - Extremity Injury (Lower) General Chief Complaint: Extremity Injury, Lower Stated Complaint: ankle injury Time Seen by Provider: 06/19/24 19:22 History of Present Illness HPI Narrative: 48-year-old female with complex past medical history including hypertriglyceridemia, chronic pancreatitis, diabetes and recent prolonged hospital stay with ICU admission for plasmapheresis and insulin infusion from elevated triglyceride levels. Patient was discharged from the hospital 2 days prior. She presents to the emergency department today after sliding on linoleum floor with wet shoes. She felt a pop in her left ankle and it rotated outward. Did not hit her head or lose consciousness but there was an obvious deformity to the left ankle. EMS arrived place the patient in a splint and provided 100 mcg of fentanyl which did not improve patient's pain. Blood sugar elevated to 297. Patient denies any other injuries. There is obvious deformity bruising to the left lower extremity ankle. Able to wiggle her toes and has a strong dorsalis pedis pulse, extremities cool however all her extremities are similarly cool to the touch without any discrepancy. Some bruising but no overlying skin changes and skin is closed. Related Data Home Medications ?Medication ?Instructions ?Recorded ?Confirmed ?Last Taken ?Type levothyroxine 200 mcg tablet 200 mcg PO DAILY 07/21/23 06/07/24 05/01/24 History ulndxn-yeewiiyt-ohwookj 2 cap PO TIDWMEAL 07/22/23 06/07/24 05/01/24 History 36,000-114,000-180,000 unit capsule,delay rel (Creon) citalopram 40 mg tablet 40 mg PO DAILY 08/31/23 06/07/24 05/01/24 History bupropion HCl 150 mg tablet,12 hr 150 mg PO HS 10/09/23 06/07/24 04/30/24 History sustained-release insulin aspart U-100 100 unit/mL See Rx Instructions .Route .COMPLEX 03/31/24 06/07/24 05/01/24 History subcutaneous solution (Novolog U-100 Insulin aspart) metoprolol succinate 25 mg 12.5 mg PO DAILY 03/31/24 06/07/24 05/01/24 History tablet,extended release 24 hr metoclopramide HCl 5 mg tablet 5 mg PO TIDWM nausea and vomiting 06/07/24 06/07/24 Unknown History Allergies Allergy/AdvReac Type Severity Reaction Status Date / Time adhesive tape Allergy Mild Rash Verified 06/06/24 22:47 [place] pepper (green pepper) Allergy Unknown Hives Verified 06/06/24 22:47 sucralose (From Splenda Allergy Migraine Verified 06/06/24 22:47 (sucralose)) Artificial Sweetners AdvReac Migraine Uncoded 05/15/24 12:38 Review of Systems Review of Systems: As reviewed above in HPI [facility] Past Medical History Medical History BMI 31.0-31.9,adult Hx of longterm use of blood thinners Abnormal CT scan, esophagus Nausea Occult blood in stools Colon cancer screening Hypertriglyceridemia PCOS (polycystic ovarian syndrome) GERD (gastroesophageal reflux disease) 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 Allergic rhinitis Insulin dependent diabetes mellitus Chronic pancreatitis (~09/02/23) Anxiety Hypertriglyceridemia Port-A-Cath in place Lipoprotein deficiency Chylomicronemia syndrome Thyroid disorder Hyperlipemia Headache Surgical History Surgical History History of wisdom tooth extraction History of tubal ligation History of partial hysterectomy History of endometrial ablation History of appendectomy History of loop electrical excision procedure (LEEP) History of exploratory laparotomy History of dilatation and curettage History of conization of cervix History of tonsillectomy Family History Family History Father Alcohol abuse Hypercholesteremia Hypertension Family history of alcoholism Family history of cardiovascular disease Diabetes mellitus Mother Hypercholesteremia Hypothyroid Cerebrovascular accident Family history of cardiovascular disease Diabetes mellitus Grandparent Skin cancer Colon cancer Heart disease Hypothyroid Cerebrovascular accident Sibling Autoimmune disorder Hypothyroid Kidney disorder Hypertension Diabetes mellitus Other Family history of kidney disease Social History Social History Social History: She smokes up to 1ppd since age 16yo. No alcohol or drug use. She has dog and a cat at home. Surrogate medical decision maker: José Miguel Jones, spouse. Code status: Full Smoking packs per day: 1 Smoking cigarettes per day: 20.0 Years smoked: 32 Smoking pack-years: 32.00 Smoking status: Current every day smoker Second hand tobacco smoke exposure: No Alcohol intake: never Drinks per week: 0 Substance use: never Substance use type: does not use Do You Feel Safe in your Home?: Yes Lack of Transportation: No Lack of Food: Never True Current Housing: I Have Housing Concerned About Future Housing: No Difficulty Paying Gas/Electric Bills: No Difficulty Paying for Meds: No Currently Unemployed: No Education: Associate Degree Difficulty w/ Childcare or Family Care: No Living arrangements: with family Occupation/Education: retired 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 Mucous membranes moist. NECK: Supple. CHEST: [Clear to auscultation. No respiratory distress.] HEART: [Regular rate and rhythm]. No murmur heard. [Normal peripheral pulses.] ABDOMEN: [Soft, nondistended], [nontender], [No rigidity or guarding] EXTREMITIES: Left lower extremity has an obvious appearing deformity with swelling over the medial and lateral malleolus with tenderness to palpation along the ankle joint. Plantar dorsiflexion is limited secondary to pain. Able to wiggle the toes equally bilaterally. Straight leg raise intact. 2+ dorsalis pedis pulse. SKIN: Cool extremities symmetrically no overlying skin changes or breakdown of skin, no open wound. NEURO: [No focal deficits]. Alert and oriented [x3.] PSYCH: [Normal mood and affect.] Course Vital Signs Vital signs: Vital Signs Temperature 36.9 C 06/19/24 19:10 Pulse Rate 89 06/19/24 19:10 Respiratory Rate 12 06/19/24 19:10 Blood Pressure 141/79 H 06/19/24 19:10 Pulse Oximetry 97 06/19/24 19:10 Oxygen Delivery Room Air 06/19/24 19:10 Temperature 36.9 C 06/19/24 19:10 Pulse Rate 87 06/19/24 19:27 Respiratory Rate 18 06/19/24 19:27 Blood Pressure 141/79 H 06/19/24 19:27 Pulse Oximetry 97 06/19/24 19:27 Oxygen Delivery Room Air 06/19/24 19:10 MDM - Extremity Injury (Lower) MDM Narrative Medical decision making narrative: 48-year-old female with complex past medical history including hypertriglyceridemia resulting in chronic pancreatitis and laboratory derangements. Patient was discharged on hospital 2 days prior. She presents today after mechanical slip and fall at home resulting in suspected fracture/dislocation of the left ankle. She has swelling over the medial and lateral malleolus and restricted range of motion secondary to pain. Strong dorsalis pedis pulse, neurovascularly intact. Normal vital signs. Patient states her pain is higher than 10/10 and she is expressing desire for multimodality pain management. Patient is asking for ketamine and Dilaudid by name. Patient was given a pain dose of ketamine at 0.2 milligrams/kilogram, Dilaudid 1 mg, Zofran and x-rays were obtained at bedside. IV was established. X-ray of the left ankle was obtained and interpreted bedside by myself. Ankle x-ray has shown appears to be trimalleolar fracture with minimal displacement of the fragments. Confirmed by radiology report. Called and spoke to the on-call Orthopedic Dr. Branahm. Went over the imaging together and plan of care for operative intervention likely tomorrow morning in the operating room. Patient was made aware of the plan and was given pain medications including additional dose of Dilaudid, posterior short-leg splint with stirrup splint applied and patient maintain good neuro vasculature pre and post application. Pain improved upon reassessments. Laboratory studies were drawn, slightly hyperglycemic, triglycerides around her baseline discharge level 2 days ago no evidence of kidney injury or electrolyte disturbances. Given a small dose of NovoLog, p.r.n. pain medications ordered as well as NPO at midnight. Spoke to the hospitalist Dr. Remy who accepted the patient to a medical-surgical bed at this time with orthopedics on consult for intervention tomorrow. Patient was updated on plan of care at bedside and agreeable to admission. Medical Records Attestation: I reviewed the patient's medical records. Lab Data Attestation: I reviewed the patient's lab results. 06/19/24 20:27 06/19/24 20:27 Labs: Lab Results 06/19/24 Range/Units 20:27 WBC 9.0 (4.5-10.0) K/mm3 RBC 4.00 L (4.2-5.4) M/mm3 Hgb 11.6 L (12.0-15.0) g/dL Hct 35.2 L (37.0-47.0) % MCV 88.0 (80-100) fl MCH 29.0 (26-34) pg MCHC 33.0 (32-36) g/dl RDW 14.3 (11.5-14.5) % Plt Count 322 (150-375) k/mm3 MPV 9.1 (7.4-10.4) fl Immature Gran % (Auto) 1.0 H (0-0.5) % Neut % (Auto) 67.2 (45.5-73.1) % Lymph % (Auto) 23.3 (18.3-44.2) % [place] % (Auto) 7.0 (2.6-8.5) % Eos % (Auto) 0.8 (0-4.4) % Baso % (Auto) 0.7 (0.2-1.2) % Lymph # (Auto) 2.09 (0.9-3.2) K/mm3 [place] # (Auto) 0.6 (0.1-0.6) K/mm3 Eos # (Auto) 0.1 (0-0.3) K/mm3 Baso # (Auto) 0.1 (0.0-0.1) K/mm3 Abs Immat Gran (auto) 0.09 H (0.00-0.031) K/mm3 Absolute Neuts (auto) 6.0 (1.3-6.7) K/mm3 Absolute Nucleated RBC 0.000 (0.0-0.012) K/mm3 Nucleated RBC % 0.0 (0.0-0.2) % PT 12.9 (11.1-14.7) Seconds INR 0.9 APTT 34.2 (22.3-36.8) Seconds Sodium 140 (137-145) mmol/L Potassium 4.1 (3.4-5.0) mmol/L Chloride 103 (98-107) mmol/L Carbon Dioxide 23 (22-30) mmol/L Anion Gap 14 H (4-12) mmol/L BUN 11 D (7-17) mg/dL Creatinine 0.69 L (0.7-1.0) mg/dL Estim Creat Clear Calc 94 ml/min Estimated GFR > 60 (59 - ) Glucose 222 H (65-110) mg/dL Calcium 9.5 (8.4-10.2) mg/dL Total Bilirubin 0.5 (0.2-1.3) mg/dL AST 19 (14-36) U/L ALT 14 (6-35) U/L Alkaline Phosphatase 58 (38-126) U/L Total Protein 7.0 (6.3-8.2) g/dL Albumin 4.4 (3.5-5.1) g/dL Triglycerides 467 H (<150) mg/dL Imaging Data Attestation: I personally reviewed and interpreted this imaging study as follows: My impression: Impressions Ankle X-Ray 06/19/24 19:42 IMPRESSION: 1. Trimalleolar ankle fracture. Discharge Plan Discharge Clinical Impression: Trimalleolar fracture of ankle, closed, Hyperglycemia, Hypertriglyceridemia Patient Disposition: Still a Patient Condition: Stable Patient Language: Sinhala Prescriptions: No Action metformin 500 mg tablet 1,000 mg PO BID Qty: 180 1RF Rx Instructions: with morning & evening meals pantoprazole [Protonix] 40 mg tablet,delayed release (DR/EC) 40 mg PO BID Qty: 30 0RF levothyroxine 200 mcg tablet 200 mcg PO DAILY Creon 36,000-114,000- 180,000 unit capsule,delayed release(DR/EC) 2 cap PO TIDWMEAL Rx Instructions: Take 2 capsules with meals and 1 capsule with any snacks. aspirin 81 mg Tablet,Delayed Release (Dr/Ec) 81 mg PO QAM Qty: 30 0RF citalopram 40 mg tablet 40 mg PO DAILY Rx Instructions: TAKE 1 TABLET BY MOUTH EVERY DAY bupropion HCl 150 mg tablet sustained-release 12 hr 150 mg PO HS ondansetron 4 mg tablet,disintegrating 4 mg PO Q8H PRN (Reason: nausea and vomiting) Qty: 10 0RF insulin aspart U-100 [Novolog U-100 Insulin aspart] 100 unit/mL solution See Rx Instructions .ROUTE .COMPLEX Rx Instructions: infused via insulin pump metoprolol succinate 25 mg tablet extended release 24 hr 12.5 mg PO DAILY docusate sodium 100 mg Capsule 100 mg PO Q12HR PRN (Reason: constipation) Qty: 20 0RF cyclobenzaprine 10 mg tablet 10 mg PO HS PRN (Reason: muscle spasm) Qty: 10 0RF metoclopramide HCl 5 mg tablet 5 mg PO TIDWM oxycodone-acetaminophen 2.5-325 mg tablet 1 tablet PO Q8H PRN (Reason: pain) Qty: 14 0RF cefdinir 300 mg capsule 300 mg PO Q12H Qty: 7 0RF Brilinta 90 mg tablet 90 mg PO BID Qty: 180 0RF (DME) pen needle, diabetic [BD Ultra-Fine Diandra Pen Needle] 32 gauge x 5/32 needle See Rx Instructions .ROUTE .MEDSUPPLY Qty: 1200 12RF Rx Instructions: 4 times daily (DME) insulin syringe-needle U-100 [BD Insulin Syringe Ultra-Fine] 0.3 mL 31 gauge x 5/16 syringe See Rx Instructions .ROUTE .MEDSUPPLY Qty: 100 12RF Rx Instructions: 4 times a day atorvastatin 80 mg tablet 80 mg PO HS Qty: 90 1RF lorazepam 1 mg tablet 1 mg PO QHS PRN (Reason: sleep) Qty: 90 0RF fenofibrate 160 mg tablet 160 mg PO DAILY Qty: 90 1RF trazodone 100 mg tablet 200 mg PO HS Qty: 180 1RF Follow-up/Referrals: UNKNOWN,DOCTOR [Primary Care Provider] - Time of Disposition: 21:07
[2024-06-19] MEDS: ONDANSETRON INJ 4 MG/2 ML VIAL IV PUSH (19:53)
[2024-06-19] MEDS: HYDROmorphone HCL INJ (*CRX) 1 MG/ML SYR IV PUSH (19:54)
[2024-06-19] MEDS: SODIUM CHLORIDE 0.9% IV 50 ML 200 ML (19:57)
[2024-06-19 20:34] LABS: Basophils Absolute Auto 0.1 K/mm3 (0.0-0.1); Basophils Percent Auto 0.7 % (0.2-1.2); Eosinophils Absolute Auto 0.1 K/mm3 (0-0.3); Eosinophils Percent Auto 0.8 % (0-4.4); Hematocrit 35.2 % (37.0-47.0); Hemoglobin 11.6 g/dL (12.0-15.0); Immature Granulocyte Absolute 0.09 K/mm3 (0.00-0.031); Lymphocytes Absolute Auto 2.09 K/mm3 (0.9-3.2); Lymphocytes Percent Auto 23.3 % (18.3-44.2); Mean Platelet Volume 9.1 fl (7.4-10.4); Monocytes Absolute Auto 0.6 K/mm3 (0.1-0.6); Neutrophils Percent Auto 67.2 % (45.5-73.1); Platelet Count Result 322 k/mm3 (150-375); Red Cell Distribution Width 14.3 % (11.5-14.5)
[2024-06-19 20:45] LABS: INR 0.9; Prothrombin Time 12.9 Seconds (11.1-14.7)
[2024-06-19 20:46] LABS: Partial Thromboplastin Time 34.2 Seconds (22.3-36.8)
[2024-06-19 20:52] LABS: Alanine Aminotransferase 14 U/L (6-35); Albumin Level 4.4 g/dL (3.5-5.1); Alkaline Phosphatase 58 U/L (38-126); Anion Gap 14 mmol/L (4-12); Aspartate Amino Transferase 19 U/L (14-36); Bilirubin,Total 0.5 mg/dL (0.2-1.3); Blood Urea Nitrogen 11 mg/dL (7-17); Calcium 9.5 mg/dL (8.4-10.2); Carbon Dioxide 23 mmol/L (22-30); Chloride 103 mmol/L (98-107); Estimated CRCL calculation 94 ml/min; Estimated Glomerular Filt Rate > 60; Glucose 222 mg/dL (65-110); Potassium 4.1 mmol/L (3.4-5.0); Sodium 140 mmol/L (137-145); Triglycerides 467 mg/dL (<150)
[2024-06-19 21:02] VITALS: BP 121/84; PULSE 104; RESP 17; O2SAT 97
[2024-06-19] MEDS: HYDROmorphone HCL INJ (*CRX) 1 MG/ML SYR 0.5 MG IV PUSH ×2 (21:05→22:22)
[2024-06-19 21:54] LABS: Glucose Point of Care 205 mg/dl (65-105)
[2024-06-19] MEDS: INSULIN ASPART (*BKC) 100 UNITS/ML SUB-Q (21:57)
--- NOTE | 2024-06-19 22:10 | P.HP_ITS ---
H&P: [facility] History of Present Illness Date/Time: 06/19/24 22:10 Chief Complaint: Ankle Pain Narrative: 48 y/o F presents here with left ankle pain with PMH of the hypertriglyceridemia, chronic pancreatitis, diabetes, PCOS, chylomicronemia syndrome, and hypothyroidism. The patient presents here with left ankle pain. She reports she had wet shoes on when they slid across linoleum floor. She reports feeling pop in her left ankle and foot rotated outward. She was able to grab her 's arm and was able to control fall to the floor. She denies head strike or loss of consciousness. Immediately after pop, she noted an obvious deformity to the left ankle. EMS was contacted and place the patient in a splint prior to arrival. She denies any numbness or tingling to the affected foot. Of note, the patient had a recent prolonged hospitalization from 06/06/24-06/17/24. She has a long standing history of hypertriglyceridemia requiring intermittent plasmapheresis and insulin gtt. Had triglycerides drawn Saturday prior to admission, 800. Did not undergo plasmapheresis at that time. Subsequently developed abdominal pain. Found to have a flare of her chronic pancreatitis and required plasmapheresis and insulin gtt. Also noted to have a mild IVONNE, was intolerant of p.o. and improved with IV fluids and antibiotics for a UTI. Initial VS at presentation: 98.4? F, HR 89, RR 12, 141/79, and 97% on RA. ED workup showed: No leukocytosis, hemoglobin 11.6 (previously 10.4 on 06/17/2024), normal coags, creatinine 0.69 and GFR >60, glucose 222, triglycerides 467. Ankle XR showed a trimalleolar ankle fracture. 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 Allergic rhinitis Insulin dependent diabetes mellitus Chronic pancreatitis (~09/02/23) Port-A-Cath in place Lipoprotein deficiency Hyperlipemia Headache Surgical History Surgical History History of wisdom tooth extraction History of tubal ligation History of partial hysterectomy History of endometrial ablation History of appendectomy History of loop electrical excision procedure (LEEP) History of exploratory laparotomy History of dilatation and curettage History of conization of cervix History of tonsillectomy Family History Family History Father Alcohol abuse Hypercholesteremia Hypertension Family history of alcoholism Family history of cardiovascular disease Diabetes mellitus Mother Hypercholesteremia Hypothyroid Cerebrovascular accident Family history of cardiovascular disease Diabetes mellitus Grandparent Skin cancer Colon cancer Heart disease Hypothyroid Cerebrovascular accident Sibling Autoimmune disorder Hypothyroid Kidney disorder Hypertension Diabetes mellitus Other Family history of kidney disease Social History Social History Social History: She smokes up to 1ppd since age 16yo. No alcohol or drug use. She has dog and a cat at home. Surrogate medical decision maker: José Miguel Bryansergio, spouse. Code status: Full Smoking packs per day: 0.5 Smoking cigarettes per day: 10.0 Years smoked: 32 Smoking pack-years: 16.00 Smoking status: Current every day smoker Tobacco type: cigarettes Second hand tobacco smoke exposure: No Alcohol intake: never Drinks per week: 0 Substance use: never Substance use type: does not use Do You Feel Safe in your Home?: Yes Lack of Transportation: No Lack of Food: Never True Current Housing: I Have Housing Concerned About Future Housing: No Difficulty Paying Gas/Electric Bills: No Difficulty Paying for Meds: No Currently Unemployed: No Education: Don't Know Difficulty w/ Childcare or Family Care: No Living arrangements: with family Occupation/Education: retired 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 Gender identity (if verbalized by the patient): Female Spiritual care concerns: No Meds Home Medications and Allergies Home Medications ?Medication ?Instructions ?Recorded ?Confirmed ?Type metformin 500 mg tablet 1,000 mg (2 x 500 mg) PO BID #180 12/19/22 06/19/24 Rx tabs levothyroxine 200 mcg tablet 200 mcg PO DAILY 07/21/23 06/19/24 History sdweno-pakwjmjt-yvyrzaq 2 cap PO TIDWMEAL 07/22/23 06/19/24 History 36,000-114,000-180,000 unit capsule,delay rel (Creon) aspirin 81 mg tablet,delayed 81 mg PO QAM #30 tabs 07/25/23 06/19/24 Rx release pantoprazole 40 mg tablet,delayed 40 mg PO BID #30 tabs 08/22/23 06/19/24 Rx release (Protonix) citalopram 40 mg tablet 40 mg PO DAILY 08/31/23 06/19/24 History ticagrelor 90 mg tablet (Brilinta) 90 mg PO BID #180 tabs 10/03/23 06/19/24 Rx bupropion HCl 150 mg tablet,12 hr 150 mg PO HS 10/09/23 06/19/24 History sustained-release pen needle, diabetic 32 gauge x #1,200 ea 11/14/23 06/19/24 Rx 5/32 (BD Ultra-Fine Diandra Pen Needle) insulin syringe-needle U-100 0.3 #100 ea 11/29/23 06/19/24 Rx mL 31 gauge x 5/16 (BD Insulin Syringe Ultra-Fine) atorvastatin 80 mg tablet 80 mg PO HS #90 tabs 02/12/24 06/19/24 Rx ondansetron 4 mg disintegrating 4 mg PO Q8H PRN nausea and 02/27/24 06/19/24 Rx tablet vomiting #10 tabs lorazepam 1 mg tablet 1 mg PO QHS PRN sleep #90 tabs 03/27/24 06/19/24 Rx insulin aspart U-100 100 unit/mL See Rx Instructions .Route .COMPLEX 03/31/24 06/19/24 History subcutaneous solution (Novolog U-100 Insulin aspart) metoprolol succinate 25 mg 12.5 mg PO DAILY 03/31/24 06/19/24 History tablet,extended release 24 hr docusate sodium 100 mg capsule 100 mg PO Q12HR PRN constipation 04/08/24 06/19/24 Rx #20 caps fenofibrate 160 mg tablet 160 mg PO DAILY #90 tabs 04/27/24 06/19/24 Rx metoclopramide HCl 5 mg tablet 5 mg PO TIDWM nausea and vomiting 06/07/24 06/19/24 History cefdinir 300 mg capsule 300 mg PO Q12H #7 caps 06/17/24 06/19/24 Rx trazodone 100 mg tablet 200 mg (2 x 100 mg) PO HS #180 tabs 06/17/24 06/19/24 Rx Allergies Allergy/AdvReac Type Severity Reaction Status Date / Time adhesive tape Allergy Mild Rash Verified 06/06/24 22:47 [place] pepper (green pepper) Allergy Unknown Hives Verified 06/06/24 22:47 sucralose (From Splenda Allergy Migraine Verified 06/06/24 22:47 (sucralose)) Artificial Sweetners AdvReac Migraine Uncoded 05/15/24 12:38 Vital Signs Vital Signs - 24 hr 06/19/24 19:10 06/19/24 19:27 06/19/24 21:02 Temperature 98.4 F Pulse Rate 89 87 104 H Respiratory Rate 12 18 17 Blood Pressure 141/79 H 141/79 H 121/84 Pulse Oximetry 97 97 97 Oxygen Delivery Room Air Exam Const: General: comfortable and no acute distress Other: , female, nontoxic appearance HENMT: Face/Nose/Sinus: Normal nares present Mouth: Yes moist mucous membranes Eyes: General: appearance normal, both eyes and all related structures Sclera: sclerae normal Pupils: Equal, round and reactive pupils present EOM: EOMs intact bilaterally Resp: Effort & Inspection: normal respiratory effort Auscultation: clear to auscultation bilaterally Cardio: Rate: regular rate Rhythm: regular rhythm Other: S1-S2 present without murmur, rub, ectopy GI: Other: Abdomen mildly tender in the upper quadrants. Abdomen soft and nondistended. Skin: General skin exam: normal color and no rashes or lesions noted Wounds: no wounds Neuro: Speech: normal speech Motor exam (neuro): 5/5 motor strength present throughout Sensory Exam: normal sensation Other: A&O x4 Extrem: Other: Tenderness to the left ankle. Splint in place. Toes cool, symmetric with unaffected foot. Psych: Mental Status: mental status grossly normal Affect: Anxious affect present Other: Good insight and judgment, pleasant H&P: Results Labs Labs: Short CBC 06/19/24 Range/Units 20:27 WBC 9.0 (4.5-10.0) K/mm3 Hgb 11.6 L (12.0-15.0) g/dL Hct 35.2 L (37.0-47.0) % Plt Count 322 (150-375) k/mm3 BMP 06/19/24 20:27 Sodium 140 Potassium 4.1 Chloride 103 Carbon Dioxide 23 BUN 11 D Creatinine 0.69 L Glucose 222 H Calcium 9.5 Liver Function 06/19/24 Range/Units 20:27 Total Bilirubin 0.5 (0.2-1.3) mg/dL AST 19 (14-36) U/L ALT 14 (6-35) U/L Alkaline Phosphatase 58 (38-126) U/L Albumin 4.4 (3.5-5.1) g/dL Assessment and Plan Assessment and plan (1) Trimalleolar fracture of ankle, closed: Qualifiers: Encounter type: initial encounter Laterality: left Qualified Code(s): S82.852A - Displaced trimalleolar fracture of left lower leg, initial encounter for closed fracture Code(s): S82.853A - Displaced trimalleolar fracture of unspecified lower leg, initial encounter for closed fracture Status: Acute Assessment and Plan: - ankle XR: Trimalleolar ankle fracture - fiberglass short-leg splint placed in ED - analgesics p.r.n. - orthopedics consulted, per ED provider plan for OR tomorrow - NPO at midnight - patient concerned she may not be able to use crutches effectively, currently has bursitis and tendonitis in the left shoulder and recently had steroid injection (May 2024) (2) Hypertriglyceridemia: Code(s): E78.1 - Pure hyperglyceridemia Status: Chronic Assessment and Plan: - triglycerides 467, previously 452 on 06/13/2024 at discharge - recheck if patient develops abdominal pain (3) Type 2 diabetes mellitus: Qualifiers: Diabetes mellitus complication status: without complication Diabetes mellitus salvage determiner insulin use: with salvage determiner use Qualified Code(s): E11.9 - Type 2 diabetes mellitus without complications; Z79.4 - [facility] (current) use of insulin Code(s): E11.9 - Type 2 diabetes mellitus without complications Status: Chronic Assessment and Plan: - pump not currently in place, does have monitor in place. Resume pump postsurgery. - hypoglycemia protocol - POC blood glucose ACHS - home medication: Hold metformin. - correct regimen ordered - high dose TIDWM and HS, based off BMI - A1C 8.3% on 05/03/2024 Plan Diet: Diabetic, NPO midnight GI Prophylaxis: Not currently indicated DVT Prophylaxis: SCD to unaffected leg Lines: Peripheral Code Status: Full code Quality VTE Prophylaxis VTE prophylaxis: mechanical ordered Hospitalist MIPS Advance Care Plan I have confirmed that the patient's Advanced Care Plan is present, code status is documented, or surrogate decision maker is listed in patient medical record.: Yes Medication Reconciliation I have utilized all available resources to obtain, update and review the patients current medications (includes all prescriptions, OTC, herbals, cannabis, and nutritional supplements).: Yes
--- NOTE | 2024-06-19 22:54 | ADMGEN ---
This patient, Casandra Jones, was admitted to [facility] Surg Room 306-02. Patient/family oriented to hospital policies and general routines including ID bracelet, bed and alarms, visiting hours, pain management, procedures, bathroom and other care routines, personal items, smoking policy, room service/diet, and visiting hours. Information on how to activate the Rapid Response Team has been discussed. Patient/Family are encouraged to report perceived risks to care and to ask questions if they do not understand what they are told or what they should do.
[2024-06-19 22:56] VITALS: BP 119/73; PULSE 87; RESP 16; TEMP 36.3; O2SAT 97; BMI 32.3
[2024-06-19] MEDS: ATORVASTATIN 40 MG TABLET 80 MG PO (23:45)
[2024-06-19] MEDS: PANTOPRAZOLE 40 MG TABLET PO (23:46)
[2024-06-19] MEDS: CEFDINIR 300 MG CAPSULE PO (23:46)
[2024-06-19] MEDS: diazePAM (*CRX) 5 MG TABLET 2.5 MG PO (23:47)
[2024-06-19] MEDS: traZODone HCL 50 MG TABLET 200 MG PO (23:48)
[2024-06-19] MEDS: diphenhydrAMINE HCl CAP 25 MG CAPSULE PO (23:52)
[2024-06-20] VITALS (14 sets, daily range): BP systolic 98–137; BP diastolic 51–96; PULSE 73–102; RESP 12–20; TEMP 36–37.2; O2SAT 94–100
[2024-06-20 00:13] LABS: Glucose Point of Care 204 mg/dl (65-105)
[2024-06-20] MEDS: HYDROmorphone HCL INJ (*CRX) 1 MG/ML SYR 0.5 MG IV PUSH ×5 (01:38→19:50)
[2024-06-20] MEDS: ONDANSETRON INJ 4 MG/2 ML VIAL IV PUSH ×2 (04:46→19:50)
[2024-06-20 07:00] LABS: Basophils Percent Auto 0.5 % (0.2-1.2); Eosinophils Absolute Auto 0.1 K/mm3 (0-0.3); Eosinophils Percent Auto 1.3 % (0-4.4); Hemoglobin 10.9 g/dL (12.0-15.0); Immature Granulocyte Absolute 0.09 K/mm3 (0.00-0.031); Immature Granulocyte Percent A 1.1 % (0-0.5); Lymphocytes Absolute Auto 2.61 K/mm3 (0.9-3.2); Lymphocytes Percent Auto 31.8 % (18.3-44.2); Mean Corpuscular HGB Conc 32.1 g/dl (32-36); Mean Corpuscular Volume 90.4 fl (80-100); Mean Platelet Volume 9.1 fl (7.4-10.4); Monocytes Absolute Auto 0.6 K/mm3 (0.1-0.6); Monocytes Percent Auto 7.5 % (2.6-8.5); Neutrophils Absolute Auto 4.8 K/mm3 (1.3-6.7); Neutrophils Percent Auto 57.8 % (45.5-73.1); Platelet Count Result 319 k/mm3 (150-375); Red Blood Count 3.76 M/mm3 (4.2-5.4); Red Cell Distribution Width 14.6 % (11.5-14.5); White Blood Count 8.2 K/mm3 (4.5-10.0)
[2024-06-20 07:13] LABS: Anion Gap 10 mmol/L (4-12); Blood Urea Nitrogen 12 mg/dL (7-17); Calcium 8.9 mg/dL (8.4-10.2); Carbon Dioxide 26 mmol/L (22-30); Chloride 104 mmol/L (98-107); Estimated CRCL calculation 88 ml/min; Estimated Glomerular Filt Rate > 60; Glucose 192 mg/dL (65-110); Potassium 3.9 mmol/L (3.4-5.0); Sodium 140 mmol/L (137-145)
--- NOTE | 2024-06-20 07:18 | PM.CNOR ---
Assessment and Plan Assessment and plan (1) Trimalleolar fracture of left ankle: Code(s): S82.852A - Displaced trimalleolar fracture of left lower leg, initial encounter for closed fracture Status: Acute Assessment and Plan: Patient is a trimalleolar ankle fracture left. Discussed treatment options risks benefits limitations and alternatives. Clearly she would benefit from operative intervention. Will proceed per her request. 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 Abnormal CT scan, esophagus Nausea Occult blood in stools Colon cancer screening Hypertriglyceridemia PCOS (polycystic ovarian syndrome) GERD (gastroesophageal reflux disease) 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 Allergic rhinitis Insulin dependent diabetes mellitus Chronic pancreatitis (~09/02/23) Port-A-Cath in place Lipoprotein deficiency Hyperlipemia Headache Surgical History Surgical History History of wisdom tooth extraction History of tubal ligation History of partial hysterectomy History of endometrial ablation History of appendectomy History of loop electrical excision procedure (LEEP) History of exploratory laparotomy History of dilatation and curettage History of conization of cervix History of tonsillectomy Family History Family History Father Alcohol abuse Hypercholesteremia Hypertension Family history of alcoholism Family history of cardiovascular disease Diabetes mellitus Mother Hypercholesteremia Hypothyroid Cerebrovascular accident Family history of cardiovascular disease Diabetes mellitus Grandparent Skin cancer Colon cancer Heart disease Hypothyroid Cerebrovascular accident Sibling Autoimmune disorder Hypothyroid Kidney disorder Hypertension Diabetes mellitus Other Family history of kidney disease Social History Social History Social History: She smokes up to 1ppd since age 16yo. No alcohol or drug use. She has dog and a cat at home. Surrogate medical decision maker: José Miguel Jones, spouse. Code status: Full Smoking packs per day: 0.5 Smoking cigarettes per day: 10.0 Years smoked: 32 Smoking pack-years: 16.00 Smoking status: Current every day smoker Tobacco type: cigarettes Second hand tobacco smoke exposure: No Alcohol intake: never Drinks per week: 0 Substance use: never Substance use type: does not use Do You Feel Safe in your Home?: Yes Lack of Transportation: No Lack of Food: Never True Current Housing: I Have Housing Concerned About Future Housing: No Difficulty Paying Gas/Electric Bills: No Difficulty Paying for Meds: No Currently Unemployed: No Education: Don't Know Difficulty w/ Childcare or Family Care: No Living arrangements: with family Occupation/Education: retired 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 Gender identity (if verbalized by the patient): Female Spiritual care concerns: No Meds Home Medications and Allergies Home Medications ?Medication ?Instructions ?Recorded ?Confirmed ?Type metformin 500 mg tablet 1,000 mg (2 x 500 mg) PO BID #180 12/19/22 06/19/24 Rx tabs levothyroxine 200 mcg tablet 200 mcg PO DAILY 07/21/23 06/19/24 History limiru-frdippgw-tyzswyc 2 cap PO TIDWMEAL 07/22/23 06/19/24 History 36,000-114,000-180,000 unit capsule,delay rel (Creon) aspirin 81 mg tablet,delayed 81 mg PO QAM #30 tabs 07/25/23 06/19/24 Rx release pantoprazole 40 mg tablet,delayed 40 mg PO BID #30 tabs 08/22/23 06/19/24 Rx release (Protonix) citalopram 40 mg tablet 40 mg PO DAILY 08/31/23 06/19/24 History ticagrelor 90 mg tablet (Brilinta) 90 mg PO BID #180 tabs 10/03/23 06/19/24 Rx bupropion HCl 150 mg tablet,12 hr 150 mg PO HS 10/09/23 06/19/24 History sustained-release pen needle, diabetic 32 gauge x #1,200 ea 11/14/23 06/19/24 Rx 5/32 (BD Ultra-Fine Diandra Pen Needle) insulin syringe-needle U-100 0.3 #100 ea 11/29/23 06/19/24 Rx mL 31 gauge x 5/16 (BD Insulin Syringe Ultra-Fine) atorvastatin 80 mg tablet 80 mg PO HS #90 tabs 02/12/24 06/19/24 Rx ondansetron 4 mg disintegrating 4 mg PO Q8H PRN nausea and 02/27/24 06/19/24 Rx tablet vomiting #10 tabs lorazepam 1 mg tablet 1 mg PO QHS PRN sleep #90 tabs 03/27/24 06/19/24 Rx insulin aspart U-100 100 unit/mL See Rx Instructions .Route .COMPLEX 03/31/24 06/19/24 History subcutaneous solution (Novolog U-100 Insulin aspart) metoprolol succinate 25 mg 12.5 mg PO DAILY 03/31/24 06/19/24 History tablet,extended release 24 hr docusate sodium 100 mg capsule 100 mg PO Q12HR PRN constipation 04/08/24 06/19/24 Rx #20 caps fenofibrate 160 mg tablet 160 mg PO DAILY #90 tabs 04/27/24 06/19/24 Rx metoclopramide HCl 5 mg tablet 5 mg PO TIDWM nausea and vomiting 06/07/24 06/19/24 History cefdinir 300 mg capsule 300 mg PO Q12H #7 caps 06/17/24 06/19/24 Rx trazodone 100 mg tablet 200 mg (2 x 100 mg) PO HS #180 tabs 06/17/24 06/19/24 Rx Allergies Allergy/AdvReac Type Severity Reaction Status Date / Time adhesive tape Allergy Mild Rash Verified 06/06/24 22:47 [place] pepper (green pepper) Allergy Unknown Hives Verified 06/06/24 22:47 sucralose (From Splenda Allergy Migraine Verified 06/06/24 22:47 (sucralose)) Artificial Sweetners AdvReac Migraine Uncoded 05/15/24 12:38 Vital Signs Vital Signs - 24 hr 06/19/24 19:10 06/19/24 19:27 06/19/24 21:02 Temperature 98.4 F Pulse Rate 89 87 104 H Respiratory Rate 12 18 17 Blood Pressure 141/79 H 141/79 H 121/84 Pulse Oximetry 97 97 97 Oxygen Delivery Room Air 06/19/24 22:56 06/20/24 05:50 Temperature 97.4 F L 97.1 F L Pulse Rate 87 81 Respiratory Rate 16 20 Blood Pressure 119/73 116/78 Pulse Oximetry 97 94 Oxygen Delivery Exam Narrative: Patient has pain with any manipulation of her left ankle. She has good has mild swelling. Neurologically she is intact. She can wiggle her toes. Results Labs 06/20/24 06:36 06/20/24 06:36 Labs: Abnormal lab results 06/19/24 06/19/24 06/20/24 Range/Units 20:27 21:52 00:02 RBC 4.00 L (4.2-5.4) M/mm3 Hgb 11.6 L (12.0-15.0) g/dL Hct 35.2 L (37.0-47.0) % RDW (11.5-14.5) % Immature Gran % (Auto) 1.0 H (0-0.5) % Abs Immat Gran (auto) 0.09 H (0.00-0.031) K/mm3 Anion Gap 14 H (4-12) mmol/L Creatinine 0.69 L (0.7-1.0) mg/dL Glucose 222 H (65-110) mg/dL POC Capillary Glucose 205 H 204 H (65-105) mg/dl Triglycerides 467 H (<150) mg/dL 06/20/24 Range/Units 06:36 RBC 3.76 L (4.2-5.4) M/mm3 Hgb 10.9 L (12.0-15.0) g/dL Hct 34.0 L (37.0-47.0) % RDW 14.6 H (11.5-14.5) % Immature Gran % (Auto) 1.1 H (0-0.5) % Abs Immat Gran (auto) 0.09 H (0.00-0.031) K/mm3 Anion Gap (4-12) mmol/L Creatinine (0.7-1.0) mg/dL Glucose 192 H (65-110) mg/dL POC Capillary Glucose (65-105) mg/dl Triglycerides (<150) mg/dL H & H 06/19/24 06/20/24 Range/Units 20:27 06:36 Hgb 11.6 L 10.9 L (12.0-15.0) g/dL Hct 35.2 L 34.0 L (37.0-47.0) % Coagulation 06/19/24 Range/Units 20:27 INR 0.9 All other labs normal.
--- NOTE | 2024-06-20 08:06 | PM.IMPN ---
Progress Note: A&P Assessment and Plan (1) Trimalleolar fracture of ankle, closed: Qualifiers: Encounter type: initial encounter Laterality: left Qualified Code(s): S82.852A - Displaced trimalleolar fracture of left lower leg, initial encounter for closed fracture Code(s): S82.853A - Displaced trimalleolar fracture of unspecified lower leg, initial encounter for closed fracture Status: Acute Assessment and Plan: Status post OR 06/20 - ankle XR: Trimalleolar ankle fracture - fiberglass short-leg splint placed in ED - analgesics p.r.n. and bowel protocol - orthopedics consulted - patient concerned she may not be able to use crutches effectively, currently has bursitis and tendonitis in the left shoulder and recently had steroid injection (May 2024) PT OT muscle relaxers (2) Hypertriglyceridemia: Code(s): E78.1 - Pure hyperglyceridemia Status: Chronic Assessment and Plan: - triglycerides 467, previously 452 on 06/13/2024 at discharge - recheck if patient develops abdominal pain Continue fenofibrate (3) Type 2 diabetes mellitus: Qualifiers: Diabetes mellitus complication status: without complication Diabetes mellitus jail insulin use: with salvage determiner use Qualified Code(s): E11.9 - Type 2 diabetes mellitus without complications; Z79.4 - senior living (current) use of insulin Code(s): E11.9 - Type 2 diabetes mellitus without complications Status: Chronic Assessment and Plan: - pump not currently in place, does have monitor in place. Resume pump postsurgery. - hypoglycemia protocol - POC blood glucose ACHS, - home medication: Hold metformin. - correct regimen ordered - high dose TIDWM and HS, based off BMI - A1C 8.3% on 05/03/2024 Plan Diet: Diabetic, GI Prophylaxis: Not currently indicated DVT Prophylaxis: SCD to unaffected leg Lines: Peripheral Code Status: Full code Time Spent With Patient Time with patient: Greater than 35 minutes Subjective Date/time seen: 06/20/24 08:06 Interval history: 48 y/o F presents here with left ankle pain with PMH of the hypertriglyceridemia, chronic pancreatitis, diabetes, PCOS, chylomicronemia syndrome, and hypothyroidism found to have trimalleolar ankle fracture left. Patient groggy from surgery today she states that she is having muscle spasms but overall feels well. Review of Systems Review of Systems: All systems reviewed & are unremarkable except as noted in HPI and below Exam Narrative: General: well appearing, appears stated age. HEENT: normocephalic, atraumatic. Mucous membranes moist. EOMI, PERRLA, bilateral sclera anicteric, no conjunctival injection. Neck supple without JVD, lymphadenopathy, or bruit. Respiratory: clear to ascultation bilaterally. No rales/rhonic/wheezes. Cardiovascular: Regular rate and rhythm, normal S1-S2 upon ascultation. No murmurs, rubs, or clicks. PMI is nondisplaced, capillary refill less than 3 second. Abdomen: Soft, round, no pulsatile masses, nondistended and nontender. No rebound, no guarding. No CVA tenderness, no hepatosplenomegaly. Bowel sounds present to all four quadrants. No high pitch or tinkling sounds, resonant to percussion. Extremities: No cyanosis, clubbing, or edema present. Pulses are palpable 2/2. Left lower extremity with surgical dressing able to wiggle toes Neuro: Alert and orientated x 4. PERRLA. Cranial nerves 2-12 intact without focal deficit. Skin: Warm, dry, and intact, without rash, erythema, or lesion. Psych: pleasant, cooperative, normal speech, normal affect, no hallucinations, no dysarthia Objective Data Vital Signs Vital Signs: Vital Signs - 24 hr 06/19/24 19:10 06/19/24 19:27 06/19/24 21:02 Temperature 98.4 F Pulse Rate 89 87 104 H Respiratory Rate 12 18 17 Blood Pressure 141/79 H 141/79 H 121/84 Pulse Oximetry 97 97 97 Oxygen Delivery Room Air 06/19/24 22:56 06/20/24 05:50 Temperature 97.4 F L 97.1 F L Pulse Rate 87 81 Respiratory Rate 16 20 Blood Pressure 119/73 116/78 Pulse Oximetry 97 94 Oxygen Delivery Intake/Output Intake/Output: Intake & Output 06/17/24 06/18/24 06/19/24 06/20/24 23:59 23:59 23:59 23:59 Intake Total 50 500 Balance 50 500 Meds/Results Medications: Active Medications Generic Name Dose Route Start Last Admin Trade Name Freq PRN Reason Stop Dose Admin Acetaminophen 650 mg 06/19/24 21:02 Acetaminophen 325 Mg Tablet PO Q4H PRN Mild Pain (1-3) or Fever Hydrocodone Bitart/Acetaminophen 1 tab 06/19/24 21:02 Hydrocodone/Acetaminophen (*Crx) 5-325 Mg Tablet PO Q4H PRN Pain Rated 4-6 Lipase/Protease/Amylase 6 cap 06/20/24 08:00 Lipase/Amylase/Protease 12,000 Units Cap PO TIDWM [facility] Atorvastatin Calcium 80 mg 06/19/24 23:30 06/19/24 23:45 Atorvastatin 40 Mg Tablet PO 80 mg HS RAPHAEL Administration Dextrose 12.5 gm 06/19/24 22:29 Dextrose 50% 25 Gm/50 Ml Syringe IV PUSH PRN PRN Hypoglycemia Protocol Diphenhydramine HCl 25 mg 06/19/24 23:15 06/19/24 23:52 Diphenhydramine Hcl Cap 25 Mg Capsule PO 25 mg Q6H PRN Administration Itching Docusate Sodium 100 mg 06/19/24 23:04 Docusate Sodium 100 Mg Capsule PO Q12HR PRN constipation Fenofibrate 160 mg 06/20/24 09:00 Fenofibrate 160 Mg Tablet PO DAILY [facility] Glucagon 1 mg 06/19/24 22:29 Glucagon For Inj 1 Mg Vial IM PRN PRN Hypoglycemia Protocol Glucose 15 gm 06/19/24 22:29 Glucose Oral Gel 15 Gm Of Glucse In 37.5 Gm Tube PO PRN PRN Hypoglycemia Protocol Hydromorphone HCl 0.5 mg 06/20/24 01:23 06/20/24 04:40 Hydromorphone Hcl Inj (*Crx) 1 Mg/Ml Syr IV PUSH 0.5 mg Q3HR PRN Administration Pain Rated 7-10 Dextrose 1,000 mls @ 100 mls/hr 06/19/24 22:29 Dextrose 5% 1,000 Ml IVPB PRN PRN Hypoglycemia Protocol Insulin Aspart 4 - 8 units 06/20/24 08:00 Insulin Aspart (*Bkc) 100 Units/Ml SUB-Q TIDWM [facility] Protocol Insulin Aspart 2 - 4 units 06/19/24 22:40 06/20/24 00:07 Insulin Aspart (*Bkc) 100 Units/Ml SUB-Q Not Given HS [facility] Protocol Levothyroxine Sodium 200 mcg 06/20/24 06:30 06/20/24 06:09 Levothyroxine Sodium 100 Mcg Tablet PO Not Given DAILY@0630 [facility] Lorazepam 1 mg 06/20/24 23:04 Lorazepam (*Crx) 1 Mg Tablet PO QHS PRN sleep Metoclopramide HCl 5 mg 06/20/24 08:00 Metoclopramide Hcl 5 Mg Tablet PO TIDWM [facility] Metoprolol Succinate 12.5 mg 06/20/24 09:00 Metoprolol Succinate Ext Rel 12.5 Mg Tabcr PO DAILY [facility] Ondansetron HCl 4 mg 06/19/24 21:02 06/20/24 04:46 Ondansetron Inj 4 Mg/2 Ml Vial IV PUSH 4 mg Q4H PRN Administration Nausea Pantoprazole Sodium 40 mg 06/19/24 23:10 06/19/24 23:46 Pantoprazole 40 Mg Tablet PO 40 mg BID RAPHAEL Administration Trazodone HCl 200 mg 06/19/24 23:30 06/19/24 23:48 Trazodone Hcl 50 Mg Tablet PO 200 mg HS RAPHAEL Administration Radiology Results: ITS Impressions Ankle X-Ray 06/19/24 19:42 IMPRESSION: 1. Trimalleolar ankle fracture. Labs Labs: Laboratory Results - last 24 hr 06/19/24 06/19/24 06/20/24 20:27 21:52 00:02 WBC 9.0 RBC 4.00 L Hgb 11.6 L Hct 35.2 L MCV 88.0 MCH 29.0 MCHC 33.0 RDW 14.3 Plt Count 322 MPV 9.1 Immature Gran % (Auto) 1.0 H Neut % (Auto) 67.2 Lymph % (Auto) 23.3 [place] % (Auto) 7.0 Eos % (Auto) 0.8 Baso % (Auto) 0.7 Lymph # (Auto) 2.09 [place] # (Auto) 0.6 Eos # (Auto) 0.1 Baso # (Auto) 0.1 Abs Immat Gran (auto) 0.09 H Absolute Neuts (auto) 6.0 Absolute Nucleated RBC 0.000 Nucleated RBC % 0.0 PT 12.9 INR 0.9 APTT 34.2 Sodium 140 Potassium 4.1 Chloride 103 Carbon Dioxide 23 Anion Gap 14 H BUN 11 D Creatinine 0.69 L Estim Creat Clear Calc 94 Estimated GFR > 60 Glucose 222 H POC Capillary Glucose 205 H 204 H Calcium 9.5 Total Bilirubin 0.5 AST 19 ALT 14 Alkaline Phosphatase 58 Total Protein 7.0 Albumin 4.4 Triglycerides 467 H Blood Type B Positive Antibody Screen Negative 06/20/24 06:36 WBC 8.2 RBC 3.76 L Hgb 10.9 L Hct 34.0 L MCV 90.4 MCH 29.0 MCHC 32.1 RDW 14.6 H Plt Count 319 MPV 9.1 Immature Gran % (Auto) 1.1 H Neut % (Auto) 57.8 Lymph % (Auto) 31.8 [place] % (Auto) 7.5 Eos % (Auto) 1.3 Baso % (Auto) 0.5 Lymph # (Auto) 2.61 [place] # (Auto) 0.6 Eos # (Auto) 0.1 Baso # (Auto) 0.0 Abs Immat Gran (auto) 0.09 H Absolute Neuts (auto) 4.8 Absolute Nucleated RBC 0.000 Nucleated RBC % 0.0 PT INR APTT Sodium 140 Potassium 3.9 Chloride 104 Carbon Dioxide 26 Anion Gap 10 BUN 12 Creatinine 0.74 Estim Creat Clear Calc 88 Estimated GFR > 60 Glucose 192 H POC Capillary Glucose Calcium 8.9 Total Bilirubin AST ALT Alkaline Phosphatase Total Protein Albumin Triglycerides Blood Type Antibody Screen Quality VTE Prophylaxis VTE prophylaxis: mechanical ordered Hospitalist MIPS Advance Care Plan I have confirmed that the patient's Advanced Care Plan is present, code status is documented, or surrogate decision maker is listed in patient medical record.: Yes Medication Reconciliation I have utilized all available resources to obtain, update and review the patients current medications (includes all prescriptions, OTC, herbals, cannabis, and nutritional supplements).: Yes
[2024-06-20 08:36] LABS: Glucose Point of Care 202 mg/dl (65-105)
[2024-06-20] MEDS: METOPROLOL SUCCINATE EXT REL 12.5 MG TABCR PO (08:43)
--- NOTE | 2024-06-20 09:19 | WPDHPUPDATE1 ---
History and Physical Update Update Date/Time: 06/20/24 09:19 History and Physical has been reviewed, including an updated exam of the patient. There are NO changes in the patient's condition. Risks, benefits, and alternatives have been discussed and questions answered. Patient agrees to proceed with procedure.
--- NOTE | 2024-06-20 09:40 | P.PNAN_ITS ---
Anes - Initial Pre Proc Eval Procedure: Operation Date: 06/20/24 10:00 Proposed Procedures p ORIF Ankle Fracture(Left) - Justo Branham MD Date/Time: 06/20/24 09:40 Surgeon: Brynn Remy DO Pre Op Diagnosis: Trimalleolar fracture Patient Data Age: 48 Gender: F Height: 1.65 m Weight: 88.1 kg Last Vital Signs Temp 36.2 C L 06/20/24 05:50 Pulse 81 06/20/24 05:50 Resp 20 06/20/24 05:50 BP 116/78 06/20/24 05:50 Pulse Ox 94 06/20/24 05:50 O2 Del Method Room Air 06/19/24 19:10 Allergies Allergy/AdvReac Type Severity Reaction Status Date / Time adhesive tape Allergy Mild Rash Verified 06/06/24 22:47 [place] pepper (green pepper) Allergy Unknown Hives Verified 06/06/24 22:47 sucralose (From Splenda Allergy Migraine Verified 06/06/24 22:47 (sucralose)) Artificial Sweetners AdvReac Migraine Uncoded 05/15/24 12:38 Home Medications ?Medication ?Instructions ?Recorded ?Confirmed ?Type metformin 500 mg tablet 1,000 mg (2 x 500 mg) PO BID #180 12/19/22 06/19/24 Rx tabs levothyroxine 200 mcg tablet 200 mcg PO DAILY 07/21/23 06/19/24 History lcftad-yawgrltt-zqbanpq 2 cap PO TIDWMEAL 07/22/23 06/19/24 History 36,000-114,000-180,000 unit capsule,delay rel (Creon) aspirin 81 mg tablet,delayed 81 mg PO QAM #30 tabs 07/25/23 06/19/24 Rx release pantoprazole 40 mg tablet,delayed 40 mg PO BID #30 tabs 08/22/23 06/19/24 Rx release (Protonix) citalopram 40 mg tablet 40 mg PO DAILY 08/31/23 06/19/24 History ticagrelor 90 mg tablet (Brilinta) 90 mg PO BID #180 tabs 10/03/23 06/19/24 Rx bupropion HCl 150 mg tablet,12 hr 150 mg PO HS 10/09/23 06/19/24 History sustained-release pen needle, diabetic 32 gauge x #1,200 ea 11/14/23 06/19/24 Rx 5/32 (BD Ultra-Fine Diandra Pen Needle) insulin syringe-needle U-100 0.3 #100 ea 11/29/23 06/19/24 Rx mL 31 gauge x 5/16 (BD Insulin Syringe Ultra-Fine) atorvastatin 80 mg tablet 80 mg PO HS #90 tabs 02/12/24 06/19/24 Rx ondansetron 4 mg disintegrating 4 mg PO Q8H PRN nausea and 02/27/24 06/19/24 Rx tablet vomiting #10 tabs lorazepam 1 mg tablet 1 mg PO QHS PRN sleep #90 tabs 03/27/24 06/19/24 Rx insulin aspart U-100 100 unit/mL See Rx Instructions .Route .COMPLEX 03/31/24 06/19/24 History subcutaneous solution (Novolog U-100 Insulin aspart) metoprolol succinate 25 mg 12.5 mg PO DAILY 03/31/24 06/19/24 History tablet,extended release 24 hr docusate sodium 100 mg capsule 100 mg PO Q12HR PRN constipation 04/08/24 06/19/24 Rx #20 caps fenofibrate 160 mg tablet 160 mg PO DAILY #90 tabs 04/27/24 06/19/24 Rx metoclopramide HCl 5 mg tablet 5 mg PO TIDWM nausea and vomiting 06/07/24 06/19/24 History cefdinir 300 mg capsule 300 mg PO Q12H #7 caps 06/17/24 06/19/24 Rx trazodone 100 mg tablet 200 mg (2 x 100 mg) PO HS #180 tabs 06/17/24 06/19/24 Rx Laboratory Tests 06/19/24 06/19/24 06/20/24 20:27 21:52 00:02 WBC 9.0 K/mm3 (4.5-10.0) RBC 4.00 L M/mm3 (4.2-5.4) Hgb 11.6 L g/dL (12.0-15.0) Hct 35.2 L % (37.0-47.0) MCV 88.0 fl (80-100) MCH 29.0 pg (26-34) MCHC 33.0 g/dl (32-36) RDW 14.3 % (11.5-14.5) Plt Count 322 k/mm3 (150-375) MPV 9.1 fl (7.4-10.4) Immature Gran % (Auto) 1.0 H % (0-0.5) Neut % (Auto) 67.2 % (45.5-73.1) Lymph % (Auto) 23.3 % (18.3-44.2) [place] % (Auto) 7.0 % (2.6-8.5) Eos % (Auto) 0.8 % (0-4.4) Baso % (Auto) 0.7 % (0.2-1.2) Lymph # (Auto) 2.09 K/mm3 (0.9-3.2) [place] # (Auto) 0.6 K/mm3 (0.1-0.6) Eos # (Auto) 0.1 K/mm3 (0-0.3) Baso # (Auto) 0.1 K/mm3 (0.0-0.1) Abs Immat Gran (auto) 0.09 H K/mm3 (0.00-0.031) Absolute Neuts (auto) 6.0 K/mm3 (1.3-6.7) Absolute Nucleated RBC 0.000 K/mm3 (0.0-0.012) Nucleated RBC % 0.0 % (0.0-0.2) PT 12.9 Seconds (11.1-14.7) INR 0.9 APTT 34.2 Seconds (22.3-36.8) Sodium 140 mmol/L (137-145) Potassium 4.1 mmol/L (3.4-5.0) Chloride 103 mmol/L (98-107) Carbon Dioxide 23 mmol/L (22-30) Anion Gap 14 H mmol/L (4-12) BUN 11 D mg/dL (7-17) Creatinine 0.69 L mg/dL (0.7-1.0) Estim Creat Clear Calc 94 ml/min Estimated GFR > 60 (59 - ) Glucose 222 H mg/dL (65-110) POC Capillary Glucose 205 H mg/dl 204 H mg/dl (65-105) (65-105) Calcium 9.5 mg/dL (8.4-10.2) Total Bilirubin 0.5 mg/dL (0.2-1.3) AST 19 U/L (14-36) ALT 14 U/L (6-35) Alkaline Phosphatase 58 U/L (38-126) Total Protein 7.0 g/dL (6.3-8.2) Albumin 4.4 g/dL (3.5-5.1) Triglycerides 467 H mg/dL (<150) Blood Type B Positive Antibody Screen Negative 06/20/24 06/20/24 06:36 08:35 WBC 8.2 K/mm3 (4.5-10.0) RBC 3.76 L M/mm3 (4.2-5.4) Hgb 10.9 L g/dL (12.0-15.0) Hct 34.0 L % (37.0-47.0) MCV 90.4 fl (80-100) MCH 29.0 pg (26-34) MCHC 32.1 g/dl (32-36) RDW 14.6 H % (11.5-14.5) Plt Count 319 k/mm3 (150-375) MPV 9.1 fl (7.4-10.4) Immature Gran % (Auto) 1.1 H % (0-0.5) Neut % (Auto) 57.8 % (45.5-73.1) Lymph % (Auto) 31.8 % (18.3-44.2) [place] % (Auto) 7.5 % (2.6-8.5) Eos % (Auto) 1.3 % (0-4.4) Baso % (Auto) 0.5 % (0.2-1.2) Lymph # (Auto) 2.61 K/mm3 (0.9-3.2) [place] # (Auto) 0.6 K/mm3 (0.1-0.6) Eos # (Auto) 0.1 K/mm3 (0-0.3) Baso # (Auto) 0.0 K/mm3 (0.0-0.1) Abs Immat Gran (auto) 0.09 H K/mm3 (0.00-0.031) Absolute Neuts (auto) 4.8 K/mm3 (1.3-6.7) Absolute Nucleated RBC 0.000 K/mm3 (0.0-0.012) Nucleated RBC % 0.0 % (0.0-0.2) PT INR APTT Sodium 140 mmol/L (137-145) Potassium 3.9 mmol/L (3.4-5.0) Chloride 104 mmol/L (98-107) Carbon Dioxide 26 mmol/L (22-30) Anion Gap 10 mmol/L (4-12) BUN 12 mg/dL (7-17) Creatinine 0.74 mg/dL (0.7-1.0) Estim Creat Clear Calc 88 ml/min Estimated GFR > 60 (59 - ) Glucose 192 H mg/dL (65-110) POC Capillary Glucose 202 H mg/dl (65-105) Calcium 8.9 mg/dL (8.4-10.2) Total Bilirubin AST ALT Alkaline Phosphatase Total Protein Albumin Triglycerides Blood Type Antibody Screen Patient hx anesthesia problems: none Family hx anesthesia problems: post op nausea/vomiting Results Review: All pre-operative results and documents have been reviewed as part of the pre- operative evaluation. 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 Allergic rhinitis Insulin dependent diabetes mellitus Chronic pancreatitis (~09/02/23) Port-A-Cath in place Lipoprotein deficiency Hyperlipemia Headache Surgical History Surgical History History of wisdom tooth extraction History of tubal ligation History of partial hysterectomy History of endometrial ablation History of appendectomy History of loop electrical excision procedure (LEEP) History of exploratory laparotomy History of dilatation and curettage History of conization of cervix History of tonsillectomy Family History Family History Father Alcohol abuse Hypercholesteremia Hypertension Family history of alcoholism Family history of cardiovascular disease Diabetes mellitus Mother Hypercholesteremia Hypothyroid Cerebrovascular accident Family history of cardiovascular disease Diabetes mellitus Grandparent Skin cancer Colon cancer Heart disease Hypothyroid Cerebrovascular accident Sibling Autoimmune disorder Hypothyroid Kidney disorder Hypertension Diabetes mellitus Other Family history of kidney disease Social History Social History Social History: She smokes up to 1ppd since age 16yo. No alcohol or drug use. She has dog and a cat at home. Surrogate medical decision maker: José Miguel Jones, spouse. Code status: Full Smoking packs per day: 0.5 Smoking cigarettes per day: 10.0 Years smoked: 32 Smoking pack-years: 16.00 Smoking status: Current every day smoker Tobacco type: cigarettes Second hand tobacco smoke exposure: No Alcohol intake: never Drinks per week: 0 Substance use: never Substance use type: does not use Do You Feel Safe in your Home?: Yes Lack of Transportation: No Lack of Food: Never True Current Housing: I Have Housing Concerned About Future Housing: No Difficulty Paying Gas/Electric Bills: No Difficulty Paying for Meds: No Currently Unemployed: No Education: Don't Know Difficulty w/ Childcare or Family Care: No Living arrangements: with family Occupation/Education: retired 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 Informed Consent: The patient's anesthetic plan and its attendant risks and benefits were discussed with the patient/family/POA. Questions were solicited and answers provided to the satisfaction of the patient/family/POA.
[2024-06-20] MEDS: ceFAZolin 2 GM/D5W 50 ML 2 GM/50 ML BAG IVPB ×2 (09:47→17:33)
--- NOTE | 2024-06-20 10:28 | PC.NURSE ---
To OR per bed at 0915, IV saline locked. Report given to CALU Bourgeois.
--- NOTE | 2024-06-20 11:19 | P.OP_ITS ---
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 Ageneral anesthetic was administered. She was sterilely prepped and draped in usual manner. I began laterally and a longitudinal incision made over the fibula. Dissection carried down to the fascia. The fracture was reduced and held with a 6 hole plate and interfragmentary screw. This gave excellent alignment and stability. I then proceeded medially, and a longitudinal incision made. The medial malleolar fracture easily identified. A 4.5 millimeter cannulated screw 44 millimeters in length was placed. This gave excellent alignment and fixation as well. The ankle was stable with no opening under stress views. The wounds irrigated this point and closed with 2-0 Vicryl and mónica. Sterile dressing applied. Patient tolerated procedures well was placed in a cam walker boot left the operating room satisfactory condition. Estimated Blood Loss 50 Complications No immediate complications Condition Stable Disposition PACU [facility] Billing Surgery - Charge Forward: Surgery Billing (34038 ORIF Trimalleolar Fracture)
[2024-06-20] MEDS: LACTATED RINGERS 1,000 ML 30 ML IV CONT (11:46)
[2024-06-20] MEDS: fentaNYL CITRATE INJ (*CRX) 100 MCG/2 ML VIAL 25 MCG IV PUSH (12:05)
[2024-06-20] MEDS: HYDROmorphone HCL INJ (*CRX) 1 MG/ML SYR IV PUSH ×4 (12:10→13:05)
[2024-06-20 12:18] LABS: Glucose Point of Care 220 mg/dl (65-105)
--- NOTE | 2024-06-20 14:15 | PC.NURSE ---
Returned from OR per bed at 1315. Report received from CLAU Guajardo.
[2024-06-20] MEDS: HYDROcodone/acetaminophen (*CRX) 5-325 MG TABLET 2 TAB PO ×2 (15:51→21:41)
[2024-06-20 16:48] LABS: Glucose Point of Care 376 mg/dl (65-105)
[2024-06-20] MEDS: SENNA/DOCUSATE SODIUM TABLET 2 TAB PO (17:34)
[2024-06-20] MEDS: METOCLOPRAMIDE HCL 5 MG TABLET PO (17:34)
[2024-06-20] MEDS: PANTOPRAZOLE 40 MG TABLET PO (17:34)
[2024-06-20] MEDS: LIPASE/AMYLASE/PROTEASE 12,000 UNITS CAP 6 CAP PO (17:34)
[2024-06-20] MEDS: methocarbamoL 500 MG TABLET PO ×2 (17:34→21:42)
[2024-06-20] MEDS: INSULIN ASPART (*BKC) 100 UNITS/ML SUB-Q ×2 (17:44→21:48)
[2024-06-20] MEDS: traZODone HCL 50 MG TABLET 200 MG PO (21:40)
[2024-06-20] MEDS: LORazepam (*CRX) 1 MG TABLET PO (21:40)
[2024-06-20] MEDS: diphenhydrAMINE HCl CAP 25 MG CAPSULE PO (21:40)
[2024-06-20] MEDS: ATORVASTATIN 40 MG TABLET 80 MG PO (21:42)
[2024-06-20 22:05] LABS: Glucose Point of Care 351 mg/dl (65-105)
[2024-06-21] MEDS: HYDROmorphone HCL INJ (*CRX) 1 MG/ML SYR 0.5 MG IV PUSH ×5 (00:21→20:05)
[2024-06-21] MEDS: ONDANSETRON INJ 4 MG/2 ML VIAL IV PUSH ×2 (00:23→05:58)
[2024-06-21] MEDS: ceFAZolin 2 GM/D5W 50 ML 2 GM/50 ML BAG IVPB ×2 (01:58→09:22)
[2024-06-21 03:00] VITALS: BP 125/55; PULSE 71; RESP 18; TEMP 36.4; O2SAT 95
[2024-06-21] MEDS: HYDROcodone/acetaminophen (*CRX) 5-325 MG TABLET 2 TAB PO ×4 (03:43→23:19)
[2024-06-21] MEDS: LEVOTHYROXINE SODIUM 100 MCG TABLET 200 MCG PO (05:56)
[2024-06-21] MEDS: diphenhydrAMINE HCl CAP 25 MG CAPSULE PO ×2 (05:58→21:22)
[2024-06-21 07:00] VITALS: BP 104/55; PULSE 78; RESP 16; TEMP 36.2; O2SAT 97
--- NOTE | 2024-06-21 07:56 | P.PNIM_ITS ---
Progress Note: A&P Assessment and Plan (1) Trimalleolar fracture of ankle, closed: Qualifiers: Encounter type: initial encounter Laterality: left Qualified Code(s): S82.852A - Displaced trimalleolar fracture of left lower leg, initial encounter for closed fracture Code(s): S82.853A - Displaced trimalleolar fracture of unspecified lower leg, initial encounter for closed fracture Status: Acute Assessment and Plan: Status post OR 06/20 - ankle XR: Trimalleolar ankle fracture - fiberglass short-leg splint placed in ED - analgesics p.r.n. 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 Resume pump postsurgery. - hypoglycemia protocol - POC blood glucose ACHS, - home medication: Hold metformin. - correct regimen ordered - high dose TIDWM and HS, based off BMI Added Lantus and bolus insulin Okay for patient to put insulin pump back on, will need to cancel other insulins at that time (3) CAD (coronary artery disease): Code(s): I25.10 - Atherosclerotic heart disease of [place] coronary artery without angina pectoris Status: Acute Assessment and Plan: 4 stents placed in 2023 Restart Brilinta and aspirin Lipitor (4) Hypothyroidism: Qualifiers: 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 Qualified Code(s): E03.8 - Other specified hypothyroidism; E06.3 - Autoimmune thyroiditis Code(s): E03.9 - Hypothyroidism, unspecified Status: Acute Assessment and Plan: Continue levothyroxine (5) Chronic pancreatitis: Code(s): K86.1 - Other chronic pancreatitis Status: Acute Assessment and Plan: Continue Creon (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 Status: Acute Assessment and Plan: - triglycerides 467, previously 452 on 06/13/2024 at discharge Continue fenofibrate and Lipitor Repeat triglyceride level 308 Plan Diet: Diabetic, GI Prophylaxis: Not currently indicated DVT Prophylaxis: SCD to unaffected leg Lines: Peripheral Code Status: Full code Time Spent With Patient Time with patient: Greater than 35 minutes Subjective Date/time seen: 06/21/24 07:56 Interval history: 48 y/o F presents here with left ankle pain with PMH of the hypertrigl yceridemia, chronic pancreatitis, diabetes, PCOS, chylomicronemia syndrome, and hypothyroidism found to have trimalleolar ankle fracture left. Postop day 1. Patient seen sitting up in chair, complains of some throbbing in foot educated on elevation. Patient will do PT OT today. Review of Systems Review of Systems: All systems reviewed & are unremarkable except as noted in HPI and below Exam Narrative: General: well appearing, appears stated age. HEENT: normocephalic, atraumatic. Mucous membranes moist. EOMI, PERRLA, bilateral sclera anicteric, no conjunctival injection. Neck supple without JVD, lymphadenopathy, or bruit. Respiratory: clear to ascultation bilaterally. No rales/rhonic/wheezes. Cardiovascular: Regular rate and rhythm, normal S1-S2 upon ascultation. No murmurs, rubs, or clicks. PMI is nondisplaced, capillary refill less than 3 second. Abdomen: Soft, round, no pulsatile masses, nondistended and nontender. No rebound, no guarding. No CVA tenderness, no hepatosplenomegaly. Bowel sounds present to all four quadrants. No high pitch or tinkling sounds, resonant to percussion. Extremities: No cyanosis, clubbing, or edema present. Pulses are palpable 2/2. Left lower extremity with surgical dressing able to wiggle toes surgical boot Neuro: Alert and orientated x 4. PERRLA. Cranial nerves 2-12 intact without focal deficit. Skin: Warm, dry, and intact, without rash, erythema, or lesion. Psych: pleasant, cooperative, normal speech, normal affect, no hallucinations, no dysarthia Objective Data Vital Signs Vital Signs: Vital Signs - 24 hr 06/20/24 11:46 06/20/24 12:00 06/20/24 12:15 Temperature 97.0 F L Pulse Rate 102 H 98 97 Respiratory Rate 12 15 13 Blood Pressure 126/77 137/76 137/69 Pulse Oximetry 96 100 100 Oxygen Delivery Simple Face Mask Simple Face Mask Simple Face Mask Oxygen Flow Rate 8 8 8 06/20/24 12:30 06/20/24 12:39 06/20/24 12:45 Temperature Pulse Rate 101 H 93 Respiratory Rate 15 12 Blood Pressure 117/96 H 129/77 Pulse Oximetry 98 98 96 Oxygen Delivery Simple Face Mask Nasal Cannula Nasal Cannula Oxygen Flow Rate 8 2 2 06/20/24 13:00 06/20/24 13:15 06/20/24 13:30 Temperature 98.9 F 97.2 F L 97.3 F L Pulse Rate 93 91 93 Respiratory Rate 12 16 16 Blood Pressure 111/60 99/55 L 98/60 L Pulse Oximetry 96 97 96 Oxygen Delivery Nasal Cannula Oxygen Flow Rate 2 06/20/24 14:00 06/20/24 14:42 06/20/24 15:00 Temperature 97.2 F L 97.3 F L Pulse Rate 82 75 Respiratory Rate 16 16 Blood Pressure 105/52 L 102/52 L Pulse Oximetry 97 97 Oxygen Delivery Nasal Cannula Oxygen Flow Rate 2 06/20/24 19:00 06/20/24 20:00 06/20/24 23:00 Temperature 97 F L 96.8 F L Pulse Rate 80 73 Respiratory Rate 18 18 Blood Pressure 112/51 L 120/59 L Pulse Oximetry 96 96 Oxygen Delivery Room Air Oxygen Flow Rate 06/21/24 03:00 Temperature 97.6 F Pulse Rate 71 Respiratory Rate 18 Blood Pressure 125/55 L Pulse Oximetry 95 Oxygen Delivery Oxygen Flow Rate Intake/Output Intake/Output: Intake & Output 06/18/24 06/19/24 06/20/24 06/21/24 23:59 23:59 23:59 23:59 Intake Total 50 820 250 Balance 50 820 250 Meds/Results Medications: Active Medications Generic Name Dose Route Start Last Admin Trade Name Freq PRN Reason Stop Dose Admin Acetaminophen 650 mg 06/20/24 13:15 Acetaminophen 325 Mg Tablet PO Q6H PRN Pain Rated 1-3 Hydrocodone Bitart/Acetaminophen 1 tab 06/20/24 13:15 Hydrocodone/Acetaminophen (*Crx) 5-325 Mg Tablet PO Q3H PRN Pain Rated 4-6 Hydrocodone Bitart/Acetaminophen 2 tab 06/20/24 13:15 06/21/24 03:43 Hydrocodone/Acetaminophen (*Crx) 5-325 Mg Tablet PO 2 tab Q6H PRN Administration Pain Rated 7-10 Lipase/Protease/Amylase 6 cap 06/20/24 08:00 06/20/24 17:34 Lipase/Amylase/Protease 12,000 Units Cap PO 6 cap TIDWM RAPHAEL Administration Atorvastatin Calcium 80 mg 06/19/24 23:30 06/20/24 21:42 Atorvastatin 40 Mg Tablet PO 80 mg HS RAPHAEL Administration Dextrose 12.5 gm 06/19/24 22:29 Dextrose 50% 25 Gm/50 Ml Syringe IV PUSH PRN PRN Hypoglycemia Protocol Diphenhydramine HCl 25 mg 06/19/24 23:15 06/21/24 05:58 Diphenhydramine Hcl Cap 25 Mg Capsule PO 25 mg Q6H PRN Administration Itching Docusate Sodium 100 mg 06/19/24 23:04 Docusate Sodium 100 Mg Capsule PO Q12HR PRN constipation Fenofibrate 160 mg 06/20/24 09:00 06/20/24 14:22 Fenofibrate 160 Mg Tablet PO Not Given DAILY RAPHAEL Glucagon 1 mg 06/19/24 22:29 Glucagon For Inj 1 Mg Vial IM PRN PRN Hypoglycemia Protocol Glucose 15 gm 06/19/24 22:29 Glucose Oral Gel 15 Gm Of Glucse In 37.5 Gm Tube PO PRN PRN Hypoglycemia Protocol Hydromorphone HCl 0.5 mg 06/20/24 01:23 06/21/24 00:21 Hydromorphone Hcl Inj (*Crx) 1 Mg/Ml Syr IV PUSH 0.5 mg Q3HR PRN Administration Pain Rated 7-10 Hydromorphone HCl 1 mg 06/20/24 09:41 06/20/24 12:43 Hydromorphone Hcl Inj (*Crx) 1 Mg/Ml Syr IV PUSH 1 mg Q5M PRN Administration Pain Dextrose 1,000 mls @ 100 mls/hr 06/19/24 22:29 Dextrose 5% 1,000 Ml IVPB PRN PRN Hypoglycemia Protocol Cefazolin Sodium 2 gm in 50 mls @ 100 mls/hr 06/20/24 18:00 06/21/24 01:58 Ancef 2 Gm/D5w 50 Ml IVPB 06/21/24 10:29 100 mls/hr Q8H RAPHAEL Administration Insulin Aspart 4 - 8 units 06/20/24 08:00 06/20/24 17:44 Insulin Aspart (*Bkc) 100 Units/Ml SUB-Q 8 units TIDWM RAPHAEL Administration Protocol Insulin Aspart 2 - 4 units 06/19/24 22:40 06/20/24 21:48 Insulin Aspart (*Bkc) 100 Units/Ml SUB-Q 4 units HS RAPHAEL Administration Protocol Levothyroxine Sodium 200 mcg 06/20/24 06:30 06/21/24 05:56 Levothyroxine Sodium 100 Mcg Tablet PO 200 mcg DAILY@0630 RAPHAEL Administration Lorazepam 1 mg 06/20/24 23:04 06/20/24 21:40 Lorazepam (*Crx) 1 Mg Tablet PO 1 mg QHS PRN Administration sleep Methocarbamol 500 mg 06/20/24 17:00 06/20/24 21:42 Methocarbamol 500 Mg Tablet PO 500 mg QID RAPHAEL Administration Metoclopramide HCl 5 mg 06/20/24 08:00 06/20/24 17:34 Metoclopramide Hcl 5 Mg Tablet PO 5 mg TIDWM RAPHAEL Administration Metoprolol Succinate 12.5 mg 06/20/24 09:00 06/20/24 08:43 Metoprolol Succinate Ext Rel 12.5 Mg Tabcr PO 12.5 mg DAILY RAPHAEL Administration Ondansetron HCl 4 mg 06/19/24 21:02 06/21/24 05:58 Ondansetron Inj 4 Mg/2 Ml Vial IV PUSH 4 mg Q4H PRN Administration Nausea Pantoprazole Sodium 40 mg 06/19/24 23:10 06/20/24 17:34 Pantoprazole 40 Mg Tablet PO 40 mg BID RAPHAEL Administration Polyethylene Glycol 17 gm 06/21/24 09:00 Polyethylene Glycol 3350 17 Gm Powd.Pack PO QAM RAPHAEL Senna/Docusate Sodium 2 tab 06/20/24 17:00 06/20/24 17:34 Senna/Docusate Sodium Tablet PO 2 tab BID RAPHAEL Administration Trazodone HCl 200 mg 06/19/24 23:30 06/20/24 21:40 Trazodone Hcl 50 Mg Tablet PO 200 mg HS RAPHAEL Administration Radiology Results: ITS Impressions Ankle X-Ray 06/19/24 19:42 IMPRESSION: 1. Trimalleolar ankle fracture. Intraoperative X-Ray 06/20/24 11:51 IMPRESSION: 1. Essentially anatomic alignment post open reduction internal fixation of trimalleolar fracture of the left ankle. Labs Labs: Laboratory Results - last 24 hr 06/20/24 06/20/24 06/20/24 08:35 11:50 16:43 POC Capillary Glucose 202 H 220 H 376 H 06/20/24 21:18 POC Capillary Glucose 351 H Quality VTE Prophylaxis VTE prophylaxis: mechanical ordered
[2024-06-21 08:09] LABS: Glucose Point of Care 252 mg/dl (65-105)
[2024-06-21] MEDS: methocarbamoL 500 MG TABLET PO ×4 (09:05→21:22)
[2024-06-21] MEDS: FENOFIBRATE 160 MG TABLET PO (09:05)
[2024-06-21] MEDS: PANTOPRAZOLE 40 MG TABLET PO ×2 (09:05→16:25)
[2024-06-21] MEDS: METOCLOPRAMIDE HCL 5 MG TABLET PO ×3 (09:05→16:25)
[2024-06-21] MEDS: LIPASE/AMYLASE/PROTEASE 12,000 UNITS CAP 6 CAP PO ×3 (09:06→16:25)
[2024-06-21] MEDS: SENNA/DOCUSATE SODIUM TABLET 2 TAB PO ×2 (09:06→16:25)
[2024-06-21 09:07] VITALS: PULSE 88
[2024-06-21] MEDS: METOPROLOL SUCCINATE EXT REL 12.5 MG TABCR PO (09:07)
[2024-06-21] MEDS: INSULIN ASPART (*BKC) 100 UNITS/ML SUB-Q ×6 (09:10→21:53)
[2024-06-21] MEDS: CITALOPRAM HYDROBROMIDE 20 MG TABLET 40 MG PO (09:16)
[2024-06-21 11:00] VITALS: BP 103/58; PULSE 92; RESP 16; TEMP 36.3; O2SAT 97
[2024-06-21 12:27] LABS: Glucose Point of Care 328 mg/dl (65-105)
--- NOTE | 2024-06-21 12:59 | P.PNOP_ITS ---
Progress Note: A&P Assessment and Plan (1) Trimalleolar fracture of left ankle: Code(s): S82.852A - Displaced trimalleolar fracture of left lower leg, initial encounter for closed fracture Status: Acute Assessment and Plan: S/P ORIF Left Ankle Fracture. Up today. Non weight bearing. F/U 2 weeks in office. Subjective Subjective Date/Time Seen: 06/21/24 12:59 Post Op day: 1 Principal diagnosis: Left Trimalleolar Ankle Fracture Review of Systems Review of Systems: All systems reviewed & are unremarkable except as noted in HPI and below Exam Narrative: Dressing intact. Wiggles toes. Objective Data Vital Signs Vital Signs: Vital Signs - 24 hr 06/20/24 13:00 06/20/24 13:15 06/20/24 13:30 Temperature 98.9 F 97.2 F L 97.3 F L Pulse Rate 93 91 93 Respiratory Rate 12 16 16 Blood Pressure 111/60 99/55 L 98/60 L Pulse Oximetry 96 97 96 Oxygen Delivery Nasal Cannula Oxygen Flow Rate 2 06/20/24 14:00 06/20/24 14:42 06/20/24 15:00 Temperature 97.2 F L 97.3 F L Pulse Rate 82 75 Respiratory Rate 16 16 Blood Pressure 105/52 L 102/52 L Pulse Oximetry 97 97 Oxygen Delivery Nasal Cannula Oxygen Flow Rate 2 06/20/24 19:00 06/20/24 20:00 06/20/24 23:00 Temperature 97 F L 96.8 F L Pulse Rate 80 73 Respiratory Rate 18 18 Blood Pressure 112/51 L 120/59 L Pulse Oximetry 96 96 Oxygen Delivery Room Air Oxygen Flow Rate 06/21/24 03:00 06/21/24 07:00 06/21/24 08:00 Temperature 97.6 F 97.2 F L Pulse Rate 71 78 Respiratory Rate 18 16 Blood Pressure 125/55 L 104/55 L Pulse Oximetry 95 97 Oxygen Delivery Room Air Oxygen Flow Rate 06/21/24 09:07 06/21/24 11:00 Temperature 97.3 F L Pulse Rate 88 92 Respiratory Rate 16 Blood Pressure 103/58 L Pulse Oximetry 97 Oxygen Delivery Oxygen Flow Rate Intake/Output Intake/Output: Intake & Output 06/18/24 06/19/24 06/20/24 06/21/24 23:59 23:59 23:59 23:59 Intake Total 50 820 420 Balance 50 820 420 Meds/Results Medications: Active Medications Generic Name Dose Route Start Last Admin Trade Name Freq PRN Reason Stop Dose Admin Acetaminophen 650 mg 06/20/24 13:15 Acetaminophen 325 Mg Tablet PO Q6H PRN Pain Rated 1-3 Hydrocodone Bitart/Acetaminophen 1 tab 06/20/24 13:15 Hydrocodone/Acetaminophen (*Crx) 5-325 Mg Tablet PO Q3H PRN Pain Rated 4-6 Hydrocodone Bitart/Acetaminophen 2 tab 06/20/24 13:15 06/21/24 10:24 Hydrocodone/Acetaminophen (*Crx) 5-325 Mg Tablet PO 2 tab Q6H PRN Administration Pain Rated 7-10 Lipase/Protease/Amylase 6 cap 06/20/24 08:00 06/21/24 12:31 Lipase/Amylase/Protease 12,000 Units Cap PO 6 cap TIDWM RAPHAEL Administration Atorvastatin Calcium 80 mg 06/19/24 23:30 06/20/24 21:42 Atorvastatin 40 Mg Tablet PO 80 mg HS RAPHAEL Administration Citalopram Hydrobromide 40 mg 06/21/24 09:00 06/21/24 09:16 Citalopram Hydrobromide 20 Mg Tablet PO 40 mg DAILY RAPHAEL Administration Dextrose 12.5 gm 06/19/24 22:29 Dextrose 50% 25 Gm/50 Ml Syringe IV PUSH PRN PRN Hypoglycemia Protocol Diphenhydramine HCl 25 mg 06/19/24 23:15 06/21/24 05:58 Diphenhydramine Hcl Cap 25 Mg Capsule PO 25 mg Q6H PRN Administration Itching Docusate Sodium 100 mg 06/19/24 23:04 Docusate Sodium 100 Mg Capsule PO Q12HR PRN constipation Fenofibrate 160 mg 06/20/24 09:00 06/21/24 09:05 Fenofibrate 160 Mg Tablet PO 160 mg DAILY RAPHAEL Administration Glucagon 1 mg 06/19/24 22:29 Glucagon For Inj 1 Mg Vial IM PRN PRN Hypoglycemia Protocol Glucose 15 gm 06/19/24 22:29 Glucose Oral Gel 15 Gm Of Glucse In 37.5 Gm Tube PO PRN PRN Hypoglycemia Protocol Hydromorphone HCl 0.5 mg 06/20/24 01:23 06/21/24 12:31 Hydromorphone Hcl Inj (*Crx) 1 Mg/Ml Syr IV PUSH 0.5 mg Q3HR PRN Administration Pain Rated 7-10 Hydromorphone HCl 1 mg 06/20/24 09:41 06/20/24 12:43 Hydromorphone Hcl Inj (*Crx) 1 Mg/Ml Syr IV PUSH 1 mg Q5M PRN Administration Pain Dextrose 1,000 mls @ 100 mls/hr 06/19/24 22:29 Dextrose 5% 1,000 Ml IVPB PRN PRN Hypoglycemia Protocol Insulin Aspart 4 - 8 units 06/20/24 08:00 06/21/24 12:32 Insulin Aspart (*Bkc) 100 Units/Ml SUB-Q 6 units TIDWM [facility] Administration Protocol Insulin Aspart 2 - 4 units 06/19/24 22:40 06/20/24 21:48 Insulin Aspart (*Bkc) 100 Units/Ml SUB-Q 4 units HS RAPHAEL Administration Protocol Insulin Aspart 4 units 06/21/24 08:00 06/21/24 12:32 Insulin Aspart (*Bkc) 100 Units/Ml 0.05 units/kg (4 units) 4 units SUB-Q Administration TIDWM [facility] Insulin Glargine 22 units 06/21/24 21:00 Insulin Glargine (*Bkc) 100 Units/Ml 0.25 units/kg (22 units) SUB-Q HS [facility] Levothyroxine Sodium 200 mcg 06/20/24 06:30 06/21/24 05:56 Levothyroxine Sodium 100 Mcg Tablet PO 200 mcg DAILY@0630 RAPHAEL Administration Lorazepam 1 mg 06/20/24 23:04 06/20/24 21:40 Lorazepam (*Crx) 1 Mg Tablet PO 1 mg QHS PRN Administration sleep Methocarbamol 500 mg 06/20/24 17:00 06/21/24 12:31 Methocarbamol 500 Mg Tablet PO 500 mg QID RAPHAEL Administration Metoclopramide HCl 5 mg 06/20/24 08:00 06/21/24 12:31 Metoclopramide Hcl 5 Mg Tablet PO 5 mg TIDWM RAPHAEL Administration Metoprolol Succinate 12.5 mg 06/20/24 09:00 06/21/24 09:07 Metoprolol Succinate Ext Rel 12.5 Mg Tabcr PO 12.5 mg DAILY RAPHAEL Administration Ondansetron HCl 4 mg 06/19/24 21:02 06/21/24 05:58 Ondansetron Inj 4 Mg/2 Ml Vial IV PUSH 4 mg Q4H PRN Administration Nausea Pantoprazole Sodium 40 mg 06/19/24 23:10 06/21/24 09:05 Pantoprazole 40 Mg Tablet PO 40 mg BID RAPHAEL Administration Polyethylene Glycol 17 gm 06/21/24 09:00 06/21/24 09:11 Polyethylene Glycol 3350 17 Gm Powd.Pack PO Not Given QAM RAPHAEL Senna/Docusate Sodium 2 tab 06/20/24 17:00 06/21/24 09:06 Senna/Docusate Sodium Tablet PO 2 tab BID RAPHAEL Administration Trazodone HCl 200 mg 06/19/24 23:30 06/20/24 21:40 Trazodone Hcl 50 Mg Tablet PO 200 mg HS RAPHAEL Administration Radiology Results: ITS Impressions Ankle X-Ray 06/19/24 19:42 IMPRESSION: 1. Trimalleolar ankle fracture. Intraoperative X-Ray 06/20/24 11:51 IMPRESSION: 1. Essentially anatomic alignment post open reduction internal fixation of trimalleolar fracture of the left ankle. Labs Labs: Laboratory Results - last 24 hr 06/20/24 06/20/24 06/21/24 16:43 21:18 07:55 POC Capillary Glucose 376 H 351 H 252 H 06/21/24 11:58 POC Capillary Glucose 328 H
[2024-06-21 13:59] LABS: Cholesterol 114 mg/dL (0-200); HDL Direct 31 mg/dL; Triglycerides 308 mg/dL (<150)
[2024-06-21 14:09] LABS: LDL Cholesterol Direct 43 mg/dL
[2024-06-21 15:00] VITALS: BP 102/55; PULSE 72; RESP 16; TEMP 36.2; O2SAT 97
[2024-06-21] MEDS: TICAGRELOR 90 MG TABLET PO (16:25)
[2024-06-21 16:46] LABS: Glucose Point of Care 163 mg/dl (65-105)
[2024-06-21] MEDS: traZODone HCL 50 MG TABLET 200 MG PO (21:21)
[2024-06-21] MEDS: ATORVASTATIN 40 MG TABLET 80 MG PO (21:22)
[2024-06-21] MEDS: LORazepam (*CRX) 1 MG TABLET PO (21:22)
[2024-06-21] MEDS: buPROPion HCL SR (12 HR) 150 MG TAB PO (21:22)
[2024-06-21] MEDS: INSULIN GLARGINE (*BKC) 100 UNITS/ML 22 UNITS SUB-Q (21:53)
[2024-06-21 22:00] VITALS: BP 118/54; PULSE 73; RESP 18; TEMP 36.1; O2SAT 97
[2024-06-21] MEDS: ONDANSETRON HCL ODT 4 MG TABLET PO (22:28)
--- NOTE | 2024-06-21 22:30 | ECG_ITS ---
Test Date: 2024-06-21 21:57:24 Measurements Intervals [place] Rate: 69 P: 52 PA: 159 QRS: 59 QRSD: 86 T: 4 QT: 375 QTc: 403 Interpretive Statements SINUS RHYTHM NORMAL ECG Compared to ECG 06/07/2024 00:14:43 NO SIGNIFICANT CHANGE Electronically Signed On 06-22-2024 06:40:58 FUR CUTTING MACHINE OPERATOR by Baron Bowers D.O.
[2024-06-21 23:51] LABS: Glucose Point of Care 276 mg/dl (65-105)
[2024-06-22] MEDS: HYDROmorphone HCL INJ (*CRX) 1 MG/ML SYR 0.5 MG IV PUSH ×2 (03:31→07:56)
[2024-06-22] MEDS: LEVOTHYROXINE SODIUM 100 MCG TABLET 200 MCG PO (05:56)
[2024-06-22] MEDS: HYDROcodone/acetaminophen (*CRX) 5-325 MG TABLET 2 TAB PO ×2 (05:57→12:20)
[2024-06-22 06:00] VITALS: BP 143/66; PULSE 72; RESP 18; TEMP 35.9; O2SAT 97
[2024-06-22 07:59] LABS: Glucose Point of Care 178 mg/dl (65-105)
--- NOTE | 2024-06-22 08:19 | P.DS_ITS ---
DS: Admitting Diagnosis Discharge Date 06/22/2024 Admitting Diagnosis Left trimalleolar fracture DS: Discharge Diagnosis Discharge Diagnosis (1) Trimalleolar fracture of ankle, closed: Qualifiers: Encounter type: initial encounter Laterality: left Qualified Code(s): S82.852A - Displaced trimalleolar fracture of left lower leg, initial encounter for closed fracture Code(s): S82.853A - Displaced trimalleolar fracture of unspecified lower leg, initial encounter for closed fracture Status: Acute Assessment and Plan: Left lower extremity Status post OR 06/20 - ankle XR: Trimalleolar ankle fracture - fiberglass short-leg splint placed in ED - analgesics p.r.n. and bowel protocol - orthopedics consulted - patient concerned she may not be able to use crutches effectively, currently has bursitis and tendonitis in the left shoulder and recently had steroid injection (May 2024) PT OT muscle relaxers Toe-touch weight-bearing in a surgical boot (2) Type 2 diabetes mellitus: Qualifiers: Diabetes mellitus complication status: without complication Diabetes mellitus long wall shear operator insulin use: with long wall shear operator use Qualified Code(s): E11.9 - Type 2 diabetes mellitus without complications; Z79.4 - alf (current) use of insulin Code(s): E11.9 - Type 2 diabetes mellitus without complications Status: Chronic Assessment and Plan: - A1C 8.3% on 05/03/2024 - pump not currently in place, does have monitor in place. Resume pump postsurgery. - hypoglycemia protocol - POC blood glucose ACHS, - home medication: Hold metformin. 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 Qualified Code(s): E03.8 - Other specified hypothyroidism; E06.3 - Autoimmune thyroiditis Code(s): E03.9 - Hypothyroidism, unspecified Status: Acute Assessment and Plan: Continue levothyroxine (5) Chronic pancreatitis: Code(s): K86.1 - Other chronic pancreatitis Status: Acute Assessment and Plan: Continue Creon (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 Patient was found to have a left trimalleolar fracture and was seen by Orthopedics with surgical repair on 06/20/24. On postop day 1 patient had trouble working with PT OT due to acute pain and swelling. Patient transitioned off of IV narcotics and started on Toradol. She has a long standing history of hypertriglyceridemia requiring intermittent plasmapheresis and insulin gtt. On day of discharge patient's chart gross rights were under 400. Patient is able fall weight-bearing status and ambulate independently with walker. She today for discharge. Status at Discharge Functional status at discharge: uses cane/walker Time Spent with Patient Time attestation: Total time spent providing and/or coordinating discharge services: Time spent: Greater than 30 minutes Exam Narrative: General: well appearing, appears stated age. HEENT: normocephalic, atraumatic. Mucous membranes moist. EOMI, PERRLA, bilateral sclera anicteric, no conjunctival injection. Neck supple without JVD, lymphadenopathy, or bruit. Respiratory: clear to ascultation bilaterally. No rales/rhonic/wheezes. Cardiovascular: Regular rate and rhythm, normal S1-S2 upon ascultation. No murmurs, rubs, or clicks. PMI is nondisplaced, capillary refill less than 3 second. Abdomen: Soft, round, no pulsatile masses, nondistended and nontender. No rebound, no guarding. No CVA tenderness, no hepatosplenomegaly. Bowel sounds present to all four quadrants. No high pitch or tinkling sounds, resonant to percussion. Extremities: No cyanosis, clubbing, or edema present. Pulses are palpable 2/2. Left lower extremity with surgical dressing able to wiggle toes surgical boot Neuro: Alert and orientated x 4. PERRLA. Cranial nerves 2-12 intact without focal deficit. Skin: Warm, dry, and intact, without rash, erythema, or lesion. Psych: pleasant, cooperative, normal speech, normal affect, no hallucinations, no dysarthia DS: Data Data Completed and Pending Labs on day of discharge: Labs from last 24 hours 06/22/24 06/21/24 06/21/24 07:53 21:29 16:31 POC Capillary Glucose 178 H 276 H 163 H Triglycerides Cholesterol LDL Cholesterol Direct HDL Direct 06/21/24 06/21/24 13:18 11:58 POC Capillary Glucose 328 H Triglycerides 308 H Cholesterol 114 LDL Cholesterol Direct 43 HDL Direct 31 Discharge Plan Discharge Consulting providers: Justo Branham Discharging Clinician: Sharri Fields Anticipated Discharge Date/Time: 06/22/24 08:21 Patient Disposition: Home, Self-Care Activity: may shower Diet: diabetic Discharge Instructions: Discharge instructions: Take medications as prescribed New medications prescribed: [place] and Flexeril You may shower however do not get your surgical dressing wet you may wrap it in plastic Left lower extremity nonweightbearing for 6 weeks Monitor blood pressures Avoid social areas, you wear a mask when in social settings Encouraged to continue with yearly vaccinations Return to the emergency department if he developed sudden shortness of breath, chest pain, nausea, vomiting, upset stomach or intractable diarrhea Return to the emergency department if you develop fever greater than 101.5 Follow-up with: Your primary care physician within 1-2 weeks for post hospitalization check up Orthopedics in 2 weeks your dressing will be changed there Thank you for choosing [facility] for your healthcare needs Patient Instructions: Antibiotic Form Patient Language: Korean Stand Alone Forms: General Discharge Information, Work/School Release IP Follow-up/Referrals: Justo Branham MD [Physician] - 2 Weeks Discharge Medications: New cyclobenzaprine 10 mg Tablet 10 mg PO Q8HR 14 Days Qty: 42 0RF hydrocodone-acetaminophen 5-325 mg Tablet 1 tablet PO Q4H PRN (Reason: Pain Rated 4-6) 5 Days Qty: 12 0RF Continued metformin 500 mg tablet 1,000 mg PO BID Qty: 180 1RF Rx Instructions: with morning & evening meals pantoprazole [Protonix] 40 mg tablet,delayed release (DR/EC) 40 mg PO BID Qty: 30 0RF levothyroxine 200 mcg tablet 200 mcg PO DAILY Creon 36,000-114,000- 180,000 unit capsule,delayed release(DR/EC) 2 cap PO TIDWMEAL Rx Instructions: Take 2 capsules with meals and 1 capsule with any snacks. aspirin 81 mg Tablet,Delayed Release (Dr/Ec) 81 mg PO QAM Qty: 30 0RF citalopram 40 mg tablet 40 mg PO DAILY Rx Instructions: TAKE 1 TABLET BY MOUTH EVERY DAY bupropion HCl 150 mg tablet sustained-release 12 hr 150 mg PO HS ondansetron 4 mg tablet,disintegrating 4 mg PO Q8H PRN (Reason: nausea and vomiting) Qty: 10 0RF insulin aspart U-100 [Novolog U-100 Insulin aspart] 100 unit/mL solution See Rx Instructions .ROUTE .COMPLEX Rx Instructions: infused via insulin pump metoprolol succinate 25 mg tablet extended release 24 hr 12.5 mg PO DAILY docusate sodium 100 mg Capsule 100 mg PO Q12HR PRN (Reason: constipation) Qty: 20 0RF metoclopramide HCl 5 mg tablet 5 mg PO TIDWM Brilinta 90 mg tablet 90 mg PO BID Qty: 180 0RF (DME) pen needle, diabetic [BD Ultra-Fine Diandra Pen Needle] 32 gauge x 5/32 needle See Rx Instructions .ROUTE .MEDSUPPLY Qty: 1200 12RF Rx Instructions: 4 times daily (DME) insulin syringe-needle U-100 [BD Insulin Syringe Ultra-Fine] 0.3 mL 31 gauge x 5/16 syringe See Rx Instructions .ROUTE .MEDSUPPLY Qty: 100 12RF Rx Instructions: 4 times a day atorvastatin 80 mg tablet 80 mg PO HS Qty: 90 1RF lorazepam 1 mg tablet 1 mg PO QHS PRN (Reason: sleep) Qty: 90 0RF fenofibrate 160 mg tablet 160 mg PO DAILY Qty: 90 1RF trazodone 100 mg tablet 200 mg PO HS Qty: 180 1RF Discontinued cefdinir 300 mg capsule 300 mg PO Q12H Qty: 7 0RF Date of admission: 06/19/24 21:58 Primary Care Provider: UNKNOWN,DOCTOR Admitting Provider: Brynn Remy Attending physician on admission: Brynn Remy Condition: Stable Quality VTE Prophylaxis VTE prophylaxis: mechanical ordered Hospitalist MIPS Heart Failure (Exclusion) Patient has history of Heart Transplant or Left Ventricular Assistive Device?: No IF YES, STOP HERE Heart Failure (Qualifier) Patient has current or prior documentation of LVEF less than or equal to 40%, or mod/servere depressed LVSF?: No IF NO, STOP HERE
[2024-06-22] MEDS: INSULIN ASPART (*BKC) 100 UNITS/ML SUB-Q ×2 (09:38→12:21)
[2024-06-22 09:39] VITALS: PULSE 90
[2024-06-22] MEDS: METOPROLOL SUCCINATE EXT REL 12.5 MG TABCR PO (09:39)
[2024-06-22] MEDS: METOCLOPRAMIDE HCL 5 MG TABLET PO ×2 (09:39→12:20)
[2024-06-22] MEDS: methocarbamoL 500 MG TABLET PO ×2 (09:39→12:20)
[2024-06-22] MEDS: PANTOPRAZOLE 40 MG TABLET PO (09:40)
[2024-06-22] MEDS: CITALOPRAM HYDROBROMIDE 20 MG TABLET 40 MG PO (09:40)
[2024-06-22] MEDS: SENNA/DOCUSATE SODIUM TABLET 2 TAB PO (09:40)
[2024-06-22] MEDS: TICAGRELOR 90 MG TABLET PO (09:40)
[2024-06-22] MEDS: FENOFIBRATE 160 MG TABLET PO (09:40)
[2024-06-22] MEDS: LIPASE/AMYLASE/PROTEASE 12,000 UNITS CAP 6 CAP PO ×2 (09:40→12:20)
[2024-06-22] MEDS: ASPIRIN 81 MG ENTERIC TABLET PO (09:40)
[2024-06-22 12:11] LABS: Glucose Point of Care 170 mg/dl (65-105)
[2024-06-22 14:00] VITALS: BP 115/64; PULSE 75; RESP 18; TEMP 36.3; O2SAT 97
[2024-06-22] MEDS: CYCLOBENZAPRINE HCL 10 MG TABLET PO (14:40)
[2024-06-22] MEDS: KETOROLAC 30 MG/ML VIAL (*BKC) IV PUSH (14:40)
--- NOTE | 2024-06-22 14:47 | PCOTNOTE ---
Patient declined earlier this date, the plan is to be discharged home with her . Patient verbalized she would like to perform OT later in the day for dressing. Therapist attempted to see at this time. Patient declines therapy, states she does not need assistance and will perform on her own closer to 5:00 when her will be here. Patient refused all OT therapy.
== END 2024-06-22 16:15 | disposition home or self-care (01) | DRG 493 ==
LOC: ANHED 21:07 → ANH3MEDSUR 22:01
PROVIDERS: Orthopaedic Surgery; Student in an Organized Health Care Education/Training Program; Admitting Provider Internal Medicine; Emergency Provider Student in an Organized Health Care Education/Training Program; Visit Provider Nurse Practitioner Gerontology
PROC: 0QSK04Z Reposition Left Fibula with Internal Fixation Device, Open Approach (ICD-10-PCS; principal; 2024-06-20 10:00)
DX: S82.852A Displaced trimalleolar fracture of left lower leg, initial encounter for closed fracture (principal); K86.1 Other chronic pancreatitis; I25.10 Atherosclerotic heart disease of native coronary artery without angina pectoris; E78.1 Pure hyperglyceridemia; E11.9 Type 2 diabetes mellitus without complications; E28.2 Polycystic ovarian syndrome; E78.6 Lipoprotein deficiency; E78.3 Hyperchylomicronemia; F17.210 Nicotine dependence, cigarettes, uncomplicated; K21.9 Gastro-esophageal reflux disease without esophagitis; F41.9 Anxiety disorder, unspecified; W01.0XXA Fall on same level from slipping, tripping and stumbling without subsequent striking against object, initial encounter; Z79.4 Long term (current) use of insulin; Z79.82 Long term (current) use of aspirin
CPT/HCPCS: 29515; 36415; 73600; 80048; 80053; 80061; 82948; 84478; 85025; 85610; 85730; 86850; 86900; 86901; 93005; 96374; 96375; 96376; 97110; 97116; 97161; 97165; 97530; 97535; 97760; 99199; 99285; A9270; C1713; J0690; J1100; J1171; J1815; J1885; J2003; J2250; J2405; J2704; J2765; J3010; J7120; L2116

== ENCOUNTER 2024-07-22 07:32 | Outpatient (CLI) | payer MEDICARE, SELFPAY ==
--- NOTE | ~2024-07-22 | NM_ITS ---
EXAM: NM gastric emptying study DATE: 07/22/2024 14:12 INDICATION: Epigastric pain TECHNIQUE: A gastric emptying study was performed using the methodology of Joce CORTES, et al. J Nucl Med 2007; 48:568-572. The patient was given a meal consisting of 2 scrambled eggs labeled with 1 mCi Tc-99m sulfur colloid, 2 slices of toast, two packages of jam, and approximately 120 mL of water. Si multaneous anterior and posterior 1-min images of the abdomen were obtained with the patient supine a t multiple time points over a total period of 4 hours. The geometric mean of anterior and posterior v iews was determined, and the percentage retention was calculated for each time point. COMPARISON: None. FINDINGS: Gastric retention of the radiotracer-labeled meal was 93%, 54%, and 15% at the 1-hour, 2-hour, and 4- hour time points, respectively. With this technique, apparent rapid gastric emptying is suggested by <30% gastric retention at 1 hour. Delayed gastric emptying is defined by gastric retention of >90% at 1 hour, >60% retention at 2 hours, or >10% retention at 4 hours. IMPRESSION: 1. Delayed gastric emptying. Reviewed, dictated and finalized at location B.
--- OUTSIDE RECORDS SUMMARY | 2024-07-22 07:35 | XMS_ITS | Encounter Summary ---
Author Organization [facility] Address [address] [place] [address] Care Team Providers Care Shop Lead Name Role Phone Guerrero Middleton PA-C Primary Care Provide r Encounter Details Date Type Department Care Team (Late st Contact Info) Description 10/26/[address] 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 Gender Identity Not on file Sexual [...] and Vascular - [place] [address] [place] [address] Malrys Mayer MD [address] [place] [address] documented as of this encounter Visit Diagnoses Not on filedocumented in this encounter Additional Health Concerns Infection Onset Date Last Indicated Resolved Time R/O GI Pathogen 09/19/2023 09/19/2023 09/21/2023 7 :33 AM CDT documented as of this encounter Care Teams Shop Lead Relationship Specialty Start Date End Date Guerrero Middleton PA-C PCP - General Physician Director Of Medical Review 02/13/18 documented as of this encounter
--- OUTSIDE RECORDS SUMMARY | 2024-07-22 07:35 | XMS_ITS | Encounter Summary ---
Author Organization [facility] Address 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 Gender Identity Not on file Sexual Orientation [...] and Vascular - [place] [address] [place] [address] Marlys Mayer MD [address] [place] [address] documented as of this encounter Visit Diagnoses Not on filedocumented in this encounter Additional Health Concerns Infection Onset Date Last Indicated Resolved Time R/O GI Pathogen 09/19/2023 09/19/2023 09/21/2023 7 :33 AM CDT documented as of this encounter Care Teams Veneer Slicing Machine Operator Relationship Specialty Start Date End Date Guerrero Middleton PA-C PCP - General Physician Printing Equipment Mechanic 02/13/18 documented as of this encounter
--- OUTSIDE RECORDS SUMMARY | 2024-07-22 07:35 | XMS_ITS | Encounter Summary ---
Author Organization [facility] Address [address] [place] [address] Care Team Providers Care Business Liaison Manager Name Role Phone Guerrero Middleton PA-C Primary Care Provide r Reason for Visit * Reason Onset Date Comments OTHER 11/21/2021 Encounter Details Date Type Department Care Team (Late st Contact Info) Description 11/21/2021 Telephone [facility] Oncology [address] [place] [address] Nicole Rosas MD [address] 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 Gender Identity Not on file Sexual [...] [facility] Heart [facility] - [facility] [address] [place] [address] Marlys Mayer MD [address] [place] [address] documented as of this encounter Visit Diagnoses Not on filedocumented in this encounter Additional Health Concerns Infection Onset Date Last Indicated Resolved Time R/O GI Pathogen 09/19/2023 09/19/2023 09/21/2023 7 :33 AM CDT documented as of this encounter Care Teams Business Liaison Manager Relationship Specialty Start Date End Date Guerrero Middleton PA-C PCP - General Physician It Web Development Consultant 02/13/18 documented as of this encounter
--- OUTSIDE RECORDS SUMMARY | 2024-07-22 07:35 | XMS_ITS | Encounter Summary ---
Author Organization [facility] Address 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 Gender Identity Not on file Sexual Orientation [...] [facility] - [address] [place] [address] Marlys Mayer MD [address] [place] [address] documented as of this encounter Visit Diagnoses Not on filedocumented in this encounter Additional Health Concerns Infection Onset Date Last Indicated Resolved Time R/O GI Pathogen 09/19/2023 09/19/2023 09/21/2023 7 :33 AM CDT documented as of this encounter Care Teams Production Truck Driver Relationship Specialty Start Date End Date Guerrero Middleton PA-C PCP - General Physician Life Insurance Actuary 02/13/18 documented as of this encounter
--- OUTSIDE RECORDS SUMMARY | 2024-07-22 07:35 | XMS_ITS | Referral Summary ---
Author Organization [facility] Address [address] [place] [address] Care Team Providers Care Car Sander Name Role Phone Mauri Jaime MD Primary Care Provider [phone] Guerrero Middleton PA Unavailable [phone] Allergies Active Allergy Reactions Criticality Noted Date [...] tablet TAKE 1 TABLET BY MOUTH EVERY ADMITTING OFFICE ESCORT 022 Active fenofibrate (TRIGLIDE) 160 mg tablet [...] on file Legal Sex Female 5:05 AM SUPERVISOR ORCHARD Gender Identity Not on file Sexual Orientation Not on file Last Filed Vital Signs Vital Sign Reading Time Taken Comments Blood Pressure 101/62 06/05/2023 11:38 AM SUPERVISOR ORCHARD Pulse 76 06/05/2023 11:38 AM SUPERVISOR ORCHARD Temperature 36.4 C (97.5 F) 06/05/2023 10:35 AM SUPERVISOR ORCHARD Respiratory Rate 22 06/05/2023 11:38 AM SUPERVISOR ORCHARD Oxygen Saturation 94% 06/05/2023 11:38 AM SUPERVISOR ORCHARD Inhaled Oxygen Concentration - - Weight 81.6 kg (180 lb) 06/05/2023 8:58 AM SUPERVISOR ORCHARD Height 165.1 cm (5' 5 ) 06/05/2023 8:58 AM SUPERVISOR ORCHARD Body Mass Index 29.95 06/05/2023 8:58 AM SUPERVISOR ORCHARD Plan of Treatment Not on file Insurance [facility] [employer]day[employer] [facility] [employer]day[employer] [facility] [employer] [facility] [employer] Care Teams Car Sander Relationship Specialty Start Date End Date Mauri Jaime MD [address] [place] [address] PCP - General Internal Medicine 05/28/23 Guerrero Middleton PA [address] [place] [address] 05/28/23
--- OUTSIDE RECORDS SUMMARY | 2024-07-22 07:35 | XMS_ITS | Encounter Summary ---
Author Organization [facility] Address 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 [address] [place] [address] Marlys Mayer MD [address] [place] [address] documented as of this encounter Visit Diagnoses Not on filedocumented in this encounter Additional Health Concerns Infection Onset Date Last Indicated Resolved Time R/O GI Pathogen 09/19/2023 09/19/2023 09/21/2023 7 :33 AM CDT documented as of this encounter Care Teams Outplacement Consultant Relationship Specialty Start Date End Date Guerrero Middleton PA-C PCP - General Physician Soil Sampler 02/13/18 documented as of this encounter
--- OUTSIDE RECORDS SUMMARY | 2024-07-22 07:35 | XMS_ITS | Encounter Summary ---
Author Organization [facility] Address 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 Gender Identity Not on file Sexual [...] [facility] - [facility] [address] [place] [address] Marlys Mayer MD [address] [facility] [place] [address] documented as of this encounter Visit Diagnoses Not on filedocumented in this encounter Additional Health Concerns Infection Onset Date Last Indicated Resolved Time R/O GI Pathogen 09/19/2023 09/19/2023 09/21/2023 7 :33 AM CDT documented as of this encounter Care Teams Sports Administrator Relationship Specialty Start Date End Date Guerrero Middleton PA-C PCP - General Physician Credit Risk Analyst 02/13/18 documented as of this encounter
--- OUTSIDE RECORDS SUMMARY | 2024-07-22 07:35 | XMS_ITS | Encounter Summary ---
Author Organization [facility] Address 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 Gender Identity Not on file Sexual [...] [facility] Vascular - [address] [place] [address] Marlys Mayer MD [address] [facility] [address] [place] [address] documented as of this encounter Visit Diagnoses Not on filedocumented in this encounter Additional Health Concerns Infection Onset Date Last Indicated Resolved Time R/O GI Pathogen 09/19/2023 09/19/2023 09/21/2023 7 :33 AM CDT documented as of this encounter Care Teams Sales And In Home Delivery Specialist Relationship Specialty Start Date End Date Guerrero Middleton PA-C PCP - General Physician Bilingual Elementary School Teacher 02/13/18 documented as of this encounter
--- OUTSIDE RECORDS SUMMARY | 2024-07-22 07:35 | XMS_ITS | Encounter Summary ---
Author Organization [facility] Address [address] [place] [address] Care Team Providers Care Sound Tester Name Role Phone Guerrero Middleton PA-C Primary Care Provide r Encounter Details Date Type Department Care Team (Late st Contact Info) Description 03/14/2022 Telephone [facility] Donor Services [facility] [address] [place] [address] Phoenix Riddle MD [address] [facility] [place] [address] Social History Tobacco Use Types [...] on file Legal Sex Female 6:07 AM EVS TECH Gender Identity Not on file Sexual Orientation [...] [facility] [address] [place] [address] Marlys Mayer MD [address] [place] [address] documented as of this encounter Visit Diagnoses Not on filedocumented in this encounter Additional Health Concerns Infection Onset Date Last Indicated Resolved Time R/O GI Pathogen 09/19/2023 09/19/2023 09/21/2023 7 :33 AM CDT documented as of this encounter Care Teams Sound Tester Relationship Specialty Start Date End Date Guerrero Middleton PA-C PCP - General Physician Universal Winding Machine Operator 02/13/18 documented as of this encounter
--- OUTSIDE RECORDS SUMMARY | 2024-07-22 07:35 | XMS_ITS | Encounter Summary ---
Author Organization [facility] Address 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 Gender Identity Not on file Sexual Orientation [...] [facility] [address] [place] [address] Marlys Mayer MD [address] [place] [address] documented as of this encounter Visit Diagnoses Not on filedocumented in this encounter Additional Health Concerns Infection Onset Date Last Indicated Resolved Time R/O GI Pathogen 09/19/2023 09/19/2023 09/21/2023 7 :33 AM CDT documented as of this encounter Care Teams Pot Maker Relationship Specialty Start Date End Date Guerrero Middleton PA-C PCP - General Physician Junior Financial Analyst 02/13/18 documented as of this encounter
--- OUTSIDE RECORDS SUMMARY | 2024-07-22 07:36 | XMS_ITS | Clinical Summary ---
Author Organization [facility] Address [address] [address] Phone Care Team Providers Care Chief Pharmacist Name Role Phone Jose G Palmer MD Unavailable [phone] Guerrero Middleton Primary Care Provider Social History [...] to complete this topic Insurance Care Teams Chief Pharmacist Relationship Specialty Start Date End Date Guerrero Middleton PAC [address] [place] [address] PCP - General Physician Hearing Specialist 12/10/16 Jose G Palmer MD Consulting Physician Gastroenterology 12/10/16
--- OUTSIDE RECORDS SUMMARY | 2024-07-22 07:36 | XMS_ITS | Clinical Summary ---
Author Organization [facility] Address [address] [place] [address] Phone Care Team Providers Care Pairing Machine Operator Name Role Phone Guerrero Middleton [...] 48h post LHC 4 Active Blood-Glucose Sensor ([employer] G7 Sensor) Device 4 Active buPROPion HCL [...] be different from the original. Marlys Mayer MD--Mechanical Engineering Intern ([facility] @ ) Problem [...] Encounters Date Type Department Care Team Description 06/30/2024 External Device Data STL ABSTRACTION Provider, Abstract 06/02/2024 External Device Data STL ABSTRACTION Provider, Abstract 06/02/2024 Abstract [facility] Heart and Vascular At [address] [place] [address] Marlys Mayer MD 06/02/2024 Telephone [facility] Heart and Vascular At [address] [place] [address] Marlys Mayer MD Medical Records 05/27/2024 External Device Data STL ABSTRACTION Provider, Abstract 05/12/2024 External Device Data STL ABSTRACTION Provider, Abstract from Last 3 Months Immunizations Immunization Administration [...] Answer Date Recorded Social/Environmental Concerns No concerns Comments No Sex and Gender Information Value Date Recorded Sex Assigned at Not on file Legal Sex Female 6:07 AM UNCRATER Gender Identity Not on file Sexual Orientation Not on file Occupation Industry Job Start Date Job End Date Not on file Not on file Not on file Not on file Last Filed Vital Signs Vital Sign Reading Time Taken Comments Blood Pressure 112/70 04/20/2024 3:12 PM UNCRATER Pulse 103 04/20/2024 3:12 PM UNCRATER Temperature 36.5 C (97.7 F) 11/29/2023 10:58 AM CDT Respiratory Rate 21 11/29/2023 6:15 PM CDT Oxygen Saturation 96% 04/20/2024 3:12 PM UNCRATER Inhaled Oxygen Concentration - - Weight 86.6 kg (191 lb) 04/20/2024 3:12 PM UNCRATER Height 165.1 cm (5' 5 ) 04/20/2024 3:12 PM UNCRATER Body Mass Index 31.78 04/20/2024 3:12 PM UNCRATER Plan of Treatment Upcoming Encounters Date Type Department Care Team (Late st Contact Info) Description 09/14/2024 3:00 PM CDT Office Visit [facility] - [place] [address] [place] [address] Marlys Mayer MD [address] [facility] [address] [place], [place] [id number] Health Maintenance Due Date Last Done Comments DIABETES ANNUAL RETINAL EXAM 11/24/1993 DIABETES MICROALBUMIN ANNUAL SCREEN 11/24/1993 FIT/ DNA Q 3 YEARS (AUTO ORDER) 11/24/1993 FIT/FOBT Q 1 YEAR (AUTO ORDER) 11/24/1993 FLEX SIG/CT COLONOGRAPHY Q 5 YEARS (AUTO ORDER) 11/24/1993 DTAP/TDAP/TD VACCINES (1 - Tdap) 11/24/1994 HEPATITIS B VACCINES (1 of 3 - 19+ 3-dose series) 11/24/1994 PAP SMEAR 11/24/1996 CERVICAL CANCER SCREENING 11/24/2005 HPV/Cotest 11/24/2005 PAP SMEAR 11/24/2005 BREAST CANCER SCREENING 2015 COLORECTAL CANCER [...] history exists Medical Devices Implanted Type Area Piccoloist Device Identifier Shelf Expiration Date Model / Serial / Lot Cath Hemodlys Glidespath 23cm [id number] Implanted:Qty : 1 on 04/10/2018 by Kayla Sheffield MD Catheter CR BARD- [employer] [id number] 08/27/2019 [id number] / / [id number] Description:14.5fr x 23cm; R IJ Port-10/29/2018 Implanted:Qty : 2 on 10/29/2018 by Laverne Willoughby MD Explanted:Qty : 1 on 02/18/2019 by Michael Powell MD Port Right: Chest Wall CR BARD- ACCESS SYS 07/28/2019 / / [id number] Description:two 9.6fr fower flow apheresis ports placed by Dr. Willoughby Port- 0 Implanted:Qty : 1 on 05/11/2019 by Alfa Forrest MD Port Left: Chest Wall CR BARD- ACCESS SYS 08/26/2020 / / [id number] Stent Synergy Xd 4.0x12mm Evrlms Elut [id number] - [id number] Implanted:Qty : 1 on 11/29/2023 by Miguel Lewis MD at [facility] Stent N/A: Coronary 4-Tell GRISELDA [id number] 03/19/2024 [id number] / / [id number] Procedures Procedure Name Priority Date/Time Associated Diagnosis Comments LDL CHOLESTEROL, DIRECT Stat 09/19/2023 12:59 AM CDT HEMOGLOBIN A1C Routine 09/18/2023 10:18 PM CDT from Last 3 Months or Most Recently Relevant to Health Maintenance Results * LDL CHOLESTEROL, DIRECT (09/19/2023 12:59 AM CDT) LDL CHOLESTEROL, DIRECT 47 <100 mg/dL 09/19/2023 5:52 AM CDT [facility] Blood Venipuncture / Unknown 09/19/2023 12:59 AM CDT 09/19/2023 1:09 AM CDT [facility] - 09/19/2023 5:52 AM CDT [...] [place] MD CHEMISTRY ORDERABLES Fin al Result Performing Organization Address [facility]/ZIP Co de Phone Number [facility] Help Me [employer] [facility]# [id number] [address] [place] [address] * (ABNORMAL) HEMOGLOBIN A1C (09/18/2023 10:18 PM CDT) HEMOGLOBIN A1C 9.7(H) <5.7 % 09/19/2023 10:59 AM CDT [facility] EST. AVG GLUCOSE, A1C 232 mg/dL 09/19/2023 10:59 AM CDT [facility] [employer] [facility] Blood Venipuncture / Unknown 09/18/2023 10:18 PM CDT 09/18/2023 10:26 PM CDT [facility] - 09/19/2023 10:59 AM CDT HGB A1C INTERPRETATION NORMAL: <5.7% PRE-DIABETES: 5.7 - 6.4% DIABETES: 6.5% OR GREATER Herlinda Mederos DO CHEMISTRY ORDERABLES Final Resul t Performing Organization Address [facility]/ZIP Co de Phone Number [facility] Help Me [employer] [facility]# [id number] [address] [place] [address] from Last 3 Months or Most Recently Relevant to Health Maintenance Insurance AETNA PPO MCR RX AETNA Medicare Part D RX MEDRANO PLANS (INTERNAL) [facility] RX MEDRANO PLANS (INTERNAL) [facility] AETNA PPO MCR Advance Directives For more information, please contact: [phone] * Full Code (Latest Code Status on [...] 12:11 AM 01/02/2021 4:26 PM Care Teams Pairing Machine Operator Relationship Specialty Start Date End Date Guerrero Middleton PA-C PCP - General Physician Supervisor Painting Department 02/13/18
--- OUTSIDE RECORDS SUMMARY | 2024-07-22 07:36 | XMS_ITS | Clinical Summary ---
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 Gender Identity Not on file Sexual Orientation Not on file Obstetrics History Last Filed Vital Signs Vital Sign Reading Time Taken Comments Blood Pressure 101/62 06/05/2023 11:38 AM CHILD WATCH ATTENDANT Pulse 76 06/05/2023 11:38 AM CHILD WATCH ATTENDANT Temperature 36.4 C (97.5 F) 06/05/2023 10:35 AM CHILD WATCH ATTENDANT Respiratory Rate 22 06/05/2023 11:38 AM CHILD WATCH ATTENDANT Oxygen Saturation 94% 06/05/2023 11:38 AM CHILD WATCH ATTENDANT Inhaled Oxygen Concentration - - Weight 81.6 kg (180 lb) 06/05/2023 8:58 AM CHILD WATCH ATTENDANT Height 165.1 cm (5' 5 ) 06/05/2023 8:58 AM CHILD WATCH ATTENDANT Body Mass Index 29.95 06/05/2023 8:58 AM CHILD WATCH ATTENDANT Plan of Treatment Health Maintenance Due Date [...] 03/04/2021, Additional history exists Insurance [facility] Care Teams Order Tracer Relationship Specialty Start Date End Date Mauri Jaime MD [address] [facility] [address] [place] [address] PCP - General Internal Medicine 05/28/23 Guerrero Middleton PA [address] [facility] [address] [place] [address] 05/28/23
== END 2024-07-22 07:33 | disposition home or self-care (01) ==
PROVIDERS: PCP Nurse Practitioner; Visit Provider Internal Medicine Gastroenterology
DX: K30 Functional dyspepsia (principal)
CPT/HCPCS: 78264; A9541

== ENCOUNTER 2024-07-25 22:20 | Inpatient (IN) | payer MEDICARE, SELFPAY ==
[2024-07-25 22:22] VITALS: BP 135/78; PULSE 110; RESP 16; TEMP 36.1; O2SAT 97
--- OUTSIDE RECORDS SUMMARY | 2024-07-25 22:22 | XMS_ITS | Encounter Summary ---
Author Organization [facility] Address [address] [place] [address] Care Team Providers Care Quiller Operator Name Role Phone Guerrero Middleton PA-C Primary Care Provide r Encounter Details Date Type Department Care Team (Late st Contact Info) Description 12/08/2021 Telephone [facility] Donor Services 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 Gender Identity Not on file Sexual Orientation [...] [facility] [address] [place] [address] Marlys Mayer MD [address] [place] [address] documented as of this encounter Visit Diagnoses Not on filedocumented in this encounter Additional Health Concerns Infection Onset Date Last Indicated Resolved Time R/O GI Pathogen 09/19/2023 09/19/2023 09/21/2023 7 :33 AM CDT documented as of this encounter Care Teams Quiller Operator Relationship Specialty Start Date End Date Guerrero Middleton PA-C PCP - General Physician Transmission Supervisor 02/13/18 documented as of this encounter
--- OUTSIDE RECORDS SUMMARY | 2024-07-25 22:22 | XMS_ITS | Encounter Summary ---
Author Organization [facility] Address 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 Gender Identity Not on file Sexual [...] [facility] - [address] [place] [address] Marlys Mayer MD [address] [facility] [address] [address] [place] [address] documented as of this encounter Visit Diagnoses Not on filedocumented in this encounter Additional Health Concerns Infection Onset Date Last Indicated Resolved Time R/O GI Pathogen 09/19/2023 09/19/2023 09/21/2023 7 :33 AM CDT documented as of this encounter Care Teams Salesforce Developer Relationship Specialty Start Date End Date Guerrero Middleton PA-C PCP - General Physician Repeater Chief 02/13/18 documented as of this encounter
--- OUTSIDE RECORDS SUMMARY | 2024-07-25 22:22 | XMS_ITS | Clinical Summary ---
Author Organization [facility] Address [address] [place] [address] Care Team Providers Care Supply Service Worker Name Role Phone Mauri Jaime MD Primary Care Provider [phone] Guerrero Middleton PA Unavailable [phone] Allergies Active Allergy Reactions Criticality Noted Date [...] tablet TAKE 1 TABLET BY MOUTH EVERY OFF TRACK BETTING MANAGER 022 Active fenofibrate (TRIGLIDE) 160 mg [...] on file Legal Sex Female 5:05 AM CHEMIST Gender Identity Not on file Sexual Orientation Not on file Obstetrics History Last Filed Vital Signs Vital Sign Reading Time Taken Comments Blood Pressure 101/62 06/05/2023 11:38 AM CHEMIST Pulse 76 06/05/2023 11:38 AM CHEMIST Temperature 36.4 C (97.5 F) 06/05/2023 10:35 AM CHEMIST Respiratory Rate 22 06/05/2023 11:38 AM CHEMIST Oxygen Saturation 94% 06/05/2023 11:38 AM CHEMIST Inhaled Oxygen Concentration - - Weight 81.6 kg (180 lb) 06/05/2023 8:58 AM CHEMIST Height 165.1 cm (5' 5 ) 06/05/2023 8:58 AM CHEMIST Body Mass Index 29.95 06/05/2023 8:58 AM CHEMIST Plan of Treatment Health Maintenance Due Date [...] 03/04/2021, Additional history exists Insurance ANGY [facility] ADVANTRA [facility] ADVANTRA [facility] [employer]TRA Care Teams Supply Service Worker Relationship Specialty Start Date End Date Mauri Jaime MD [address] [facility] [address] [place] [address] PCP - General Internal Medicine 05/28/23 Guerrero Middleton PA [address] [facility] [address] [place] [address] 05/28/23
--- OUTSIDE RECORDS SUMMARY | 2024-07-25 22:22 | XMS_ITS | Referral Summary ---
Author Organization [facility] Address [address] [place] [address] Care Team Providers Care Leaf Conditioner Name Role Phone Mauri Jaime MD Primary Care Provider [phone] Guerrero Middleton PA Unavailable [phone] Allergies Active Allergy Reactions Criticality Noted Date [...] tablet TAKE 1 TABLET BY MOUTH EVERY DEVELOPMENT SCIENTIST 022 Active fenofibrate (TRIGLIDE) 160 mg tablet [...] on file Legal Sex Female 5:05 AM HOSPITAL INTERN Gender Identity Not on file Sexual Orientation Not on file Last Filed Vital Signs Vital Sign Reading Time Taken Comments Blood Pressure 101/62 06/05/2023 11:38 AM HOSPITAL INTERN Pulse 76 06/05/2023 11:38 AM HOSPITAL INTERN Temperature 36.4 C (97.5 F) 06/05/2023 10:35 AM HOSPITAL INTERN Respiratory Rate 22 06/05/2023 11:38 AM HOSPITAL INTERN Oxygen Saturation 94% 06/05/2023 11:38 AM HOSPITAL INTERN Inhaled Oxygen Concentration - - Weight 81.6 kg (180 lb) 06/05/2023 8:58 AM HOSPITAL INTERN Height 165.1 cm (5' 5 ) 06/05/2023 8:58 AM HOSPITAL INTERN Body Mass Index 29.95 06/05/2023 8:58 AM HOSPITAL INTERN Plan of Treatment Not on file Insurance [facility] [employer] [facility] [employer] [facility] ADVANTRA [facility] [employer]TRA Care Teams Leaf Conditioner Relationship Specialty Start Date End Date Mauri Jaime MD [address] [place] [address] PCP - General Internal Medicine 05/28/23 Guerrero Middleton PA [address] [place] [address] 05/28/23
--- OUTSIDE RECORDS SUMMARY | 2024-07-25 22:22 | XMS_ITS | Encounter Summary ---
Author Organization [facility] Address 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 Gender Identity Not on file Sexual [...] [facility])[[facility]] Heart and Vascular - [place] [address] [place] [address] Marlys Mayer MD [address] [place] [address] documented as of this encounter Visit Diagnoses Not on filedocumented in this encounter Additional Health Concerns Infection Onset Date Last Indicated Resolved Time R/O GI Pathogen 09/19/2023 09/19/2023 09/21/2023 7 :33 AM CDT documented as of this encounter Care Teams Copy Center Specialist Relationship Specialty Start Date End Date Guerrero Middleton PA-C PCP - General Physician Mangle Press Catcher 02/13/18 documented as of this encounter
--- OUTSIDE RECORDS SUMMARY | 2024-07-25 22:22 | XMS_ITS | Encounter Summary ---
Author Organization [facility] Address 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 Gender Identity Not on file Sexual Orientation [...] [facility] Heart [facility] Vascular - [facility] [address] [place] [address] Marlys Mayer MD [address] [place] [address] documented as of this encounter Visit Diagnoses Not on filedocumented in this encounter Additional Health Concerns Infection Onset Date Last Indicated Resolved Time R/O GI Pathogen 09/19/2023 09/19/2023 09/21/2023 7 :33 AM CDT documented as of this encounter Care Teams Pattern Scratcher Relationship Specialty Start Date End Date Guerrero Middleton PA-C PCP - General Physician Timber Management Professor 02/13/18 documented as of this encounter
--- OUTSIDE RECORDS SUMMARY | 2024-07-25 22:22 | XMS_ITS | Encounter Summary ---
Author Organization [facility] Address 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 Gender Identity Not on file Sexual Orientation [...] [facility] [address] [place] [address] Marlys Mayer MD [address] [place] [address] documented as of this encounter Visit Diagnoses Not on filedocumented in this encounter Additional Health Concerns Infection Onset Date Last Indicated Resolved Time R/O GI Pathogen 09/19/2023 09/19/2023 09/21/2023 7 :33 AM CDT documented as of this encounter Care Teams Burner Shaft Relationship Specialty Start Date End Date Guerrero Middleton PA-C PCP - General Physician Promotional Marketing Agent 02/13/18 documented as of this encounter
--- OUTSIDE RECORDS SUMMARY | 2024-07-25 22:22 | XMS_ITS | Encounter Summary ---
Author Organization [facility] Address 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 Gender Identity Not on file Sexual [...] [facility] [address] [place] [address] Marlys Mayer MD [address] [place] [address] documented as of this encounter Visit Diagnoses Not on filedocumented in this encounter Additional Health Concerns Infection Onset Date Last Indicated Resolved Time R/O GI Pathogen 09/19/2023 09/19/2023 09/21/2023 7 :33 AM CDT documented as of this encounter Care Teams Dry Folder Cloth Relationship Specialty Start Date End Date Guerrero Middleton PA-C PCP - General Physician Student Accounts Manager 02/13/18 documented as of this encounter
--- OUTSIDE RECORDS SUMMARY | 2024-07-25 22:22 | XMS_ITS | Encounter Summary ---
Author Organization [facility] Address [address] [place] [address] Care Team Providers Care Health Inspector Food Name Role Phone Guerrero Middleton PA-C Primary Care Provide r Encounter Details Date Type Department Care Team (Late st Contact Info) Description 10/13/2021 Telephone [facility] Oncology [address] [place] [address] Phoenix Riddle MD [address] [facility] [place] [address] Social History Tobacco Use Types [...] on file Legal Sex Female 6:07 AM CAREER DEVELOPMENT CONSULTANT Gender Identity Not on file Sexual Orientation [...] [facility] Heart and Vascular - [address] [address] [place] [address] Marlys Mayer MD [address] [place] [address] documented as of this encounter Visit Diagnoses Not on filedocumented in this encounter Additional Health Concerns Infection Onset Date Last Indicated Resolved Time R/O GI Pathogen 09/19/2023 09/19/2023 09/21/2023 7 :33 AM CDT documented as of this encounter Care Teams Health Inspector Food Relationship Specialty Start Date End Date Guerrero Middleton PA-C PCP - General Physician Buyer 02/13/18 documented as of this encounter
--- OUTSIDE RECORDS SUMMARY | 2024-07-25 22:22 | XMS_ITS | Encounter Summary ---
Author Organization [facility] Address [address] [place] [address] Care Team Providers Care Collar Setter Overlock Name Role Phone Guerrero Middleton PA-C Primary Care Provide r Reason for Visit * Reason Onset Date Comments OTHER 11/21/2021 Encounter Details Date Type Department Care Team (Late st Contact Info) Description 11/21/2021 Telephone [facility] Oncology [address] [place] [address] Nicole Rosas MD [address] [place] [address] OTHER Social History Tobacco Use [...] on file Legal Sex Female 6:07 AM POLITICAL RESEARCHER Gender Identity Not on file Sexual Orientation [...] [facility] Heart and Vascular - [facility] [address] [place] [address] Marlys Mayer MD [address] [place] [address] documented as of this encounter Visit Diagnoses Not on filedocumented in this encounter Additional Health Concerns Infection Onset Date Last Indicated Resolved Time R/O GI Pathogen 09/19/2023 09/19/2023 09/21/2023 7 :33 AM CDT documented as of this encounter Care Teams Collar Setter Overlock Relationship Specialty Start Date End Date Guerrero Middleton PA-C PCP - General Physician Counselor Supervisor 02/13/18 documented as of this encounter
--- OUTSIDE RECORDS SUMMARY | 2024-07-25 22:22 | XMS_ITS | Encounter Summary ---
Author Organization [facility] Address 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 Gender Identity Not on file Sexual [...] [place] [facility] V[facility] - [place] [address] [place] [address] Marlys Mayer MD [address] [place] [address] documented as of this encounter Visit Diagnoses Not on filedocumented in this encounter Additional Health Concerns Infection Onset Date Last Indicated Resolved Time R/O GI Pathogen 09/19/2023 09/19/2023 09/21/2023 7 :33 AM CDT documented as of this encounter Care Teams Labor Employment Associate Relationship Specialty Start Date End Date Guerrero Middleton PA-C PCP - General Physician Metal Weather Stripper 02/13/18 documented as of this encounter
--- OUTSIDE RECORDS SUMMARY | 2024-07-25 22:23 | XMS_ITS | Clinical Summary ---
Author Organization [facility] Address [address] [place] [address] Phone Care Team Providers Care Lead Software Developer Name Role Phone Guerrero Middleton PA-C [...] 48h post LHC 4 Active Blood-Glucose Sensor ([employer] G7 Sensor) Device 4 Active buPROPion HCL [...] be different from the original. Marlys Mayer MD--Corrugator Operator ([facility] @ ) Problem [...] Data STL ABSTRACTION Provider, Abstract 06/02/2024 Abstract [facility] Heart and Vascular At [address] [place] [address] Marlys Mayer MD 06/02/2024 Telephone [facility] Heart and Vascular At [address] [place] [address] Marlys Mayer MD Medical Records 05/27/2024 External [...] on file Legal Sex Female 6:07 AM PILL PACKER Gender Identity Not on file Sexual Orientation Not on file Occupation Industry Job Start Date Job End Date Not on file Not on file Not on file Not on file Last Filed Vital Signs Vital Sign Reading Time Taken Comments Blood Pressure 112/70 04/20/2024 3:12 PM PILL PACKER Pulse 103 04/20/2024 3:12 PM PILL PACKER Temperature 36.5 C (97.7 F) 11/29/2023 10:58 AM CDT Respiratory Rate 21 11/29/2023 6:15 PM CDT Oxygen Saturation 96% 04/20/2024 3:12 PM PILL PACKER Inhaled Oxygen Concentration - - Weight 86.6 kg (191 lb) 04/20/2024 3:12 PM PILL PACKER Height 165.1 cm (5' 5 ) 04/20/2024 3:12 PM PILL PACKER Body Mass Index 31.78 04/20/2024 3:12 PM PILL PACKER Plan of Treatment Upcoming Encounters Date Type Department Care Team (Late st Contact Info) Description 09/14/2024 3:00 PM CDT Office Visit [facility] Heart and Vascular - [place] [address] [place] [address] Marlys Mayer MD [address] [place], [place] [address] Health Maintenance Due Date Last Done Comments [...] SMEAR 11/24/1996 CERVICAL CANCER SCREENING 11/24/2005 HPV/Cotest (30-65) 11/24/2005 PAP SMEAR 11/24/2005 BREAST CANCER SCREENING [...] history exists Medical Devices Implanted Type Area Electro Winning Operator Device Identifier Shelf Expiration Date Model / Serial / Lot Cath Hemodlys Glidespath 23cm [id number] Implanted:Qty : 1 on 04/10/2018 by Kayla Sheffield MD Catheter CR BARD- [employer] [id number] 08/27/2019 [id number] / / [id number] Description:14.5fr x 23cm; R IJ Port-10/29/2018 Implanted:Qty : 2 on 10/29/2018 by Laverne Willoughby MD Explanted:Qty : 1 on 02/18/2019 by Michael Powell MD Port Right: Chest Wall CR BARD- ACCESS SYS 07/28/2019 / / [id number] Description:two 9.6fr fower flow apheresis ports placed by Dr. Willoughby Port- 0 Implanted:Qty : 1 on 05/11/2019 by Alfa Forrest MD Port Left: Chest Wall CR BARD- ACCESS SYS 08/26/2020 / / [id number] Stent Synergy Xd 4.0x12mm Evrlms Elut [id number] - [id number] Implanted:Qty : 1 on 11/29/2023 by Miguel Lewis MD at [facility] Stent N/A: Coronary Eventstagr.am GRISELDA [id number] 03/19/2024 [id number] / / [id number] Procedures Procedure Name Priority Date/Time Associated Diagnosis Comments LDL CHOLESTEROL, DIRECT Stat 09/19/2023 12:59 AM CDT HEMOGLOBIN A1C Routine 09/18/2023 10:18 PM CDT from Last 3 Months or Most Recently Relevant to Health Maintenance Results * LDL CHOLESTEROL, DIRECT (09/19/2023 12:59 AM CDT) LDL CHOLESTEROL, DIRECT 47 <100 mg/dL 09/19/2023 5:52 AM CDT [facility] Blood Venipuncture / Unknown 09/19/2023 12:59 AM CDT 09/19/2023 1:09 AM CDT [facility] - 09/19/2023 5:52 AM CDT LDL CHOLESTEROL [...] ORDERABLES Fin al Result Performing Organization Address [facility]/ZIP Co de Phone Number [facility] [employer] [facility]# [id number] [address] [place] [address] * (ABNORMAL) HEMOGLOBIN A1C (09/18/2023 10:18 PM CDT) HEMOGLOBIN A1C 9.7(H) <5.7 % 09/19/2023 10:59 AM CDT [employer] [facility] EST. AVG GLUCOSE, A1C 232 mg/dL 09/19/2023 10:59 AM CDT [facility] Blood Venipuncture / Unknown 09/18/2023 10:18 PM CDT 09/18/2023 10:26 PM CDT [facility] - 09/19/2023 10:59 AM CDT HGB A1C INTERPRETATION NORMAL: <5.7% PRE-DIABETES: 5.7 - 6.4% DIABETES: 6.5% OR GREATER Herlinda Mederos DO CHEMISTRY ORDERABLES Final Resul t Performing Organization Address [facility]/ZIP Co de Phone Number [facility] [employer] [facility]# [id number] [address] [place] [address] from Last 3 Months or Most Recently Relevant to Health Maintenance Insurance AETNA PPO MCR RX AETNA Medicare Part D RX MEDRANO PLANS (INTERNAL) [facility] RX MEDRANO PLANS (INTERNAL) [facility] AETNA PPO MCR Advance Directives For more information, please contact: [phone] * Full Code (Latest Code Status on [...] 12:11 AM 01/02/2021 4:26 PM Care Teams Lead Software Developer Relationship Specialty Start Date End Date Guerrero Middleton PA-C PCP - General Physician Modeling And Simulation Analyst 02/13/18
--- OUTSIDE RECORDS SUMMARY | 2024-07-25 22:23 | XMS_ITS | Clinical Summary ---
Author Organization [facility] Address [address] [address] Phone Care Team Providers Care Lav Crewman Name Role Phone Jose G Palmer MD Unavailable [phone] Guerrero Middleton Primary Care Provider Social History [...] to complete this topic Insurance Care Teams Lav Crewman Relationship Specialty Start Date End Date Guerrero Middleton PAC [address] [place] [address] PCP - General Physician Cook Enchilada 12/10/16 Jose G Palmer MD Consulting Physician Gastroenterology 12/10/16
[2024-07-26] VITALS (37 sets, daily range): BP systolic 121–148; BP diastolic 65–97; PULSE 83–100; RESP 12–20; TEMP 36.3–37.1; O2SAT 86–100; BMI 32.4
--- OUTSIDE RECORDS SUMMARY | 2024-07-26 04:21 | XMS_ITS | Encounter Summary ---
Author Organization [facility] Address [address] [place] [address] Care Team Providers Care Linux Programmer Name Role Phone Guerrero Middleton PA-C Primary Care Provide r Reason for Visit * Reason Onset Date Comments petr rubin 09/13/2021 Encounter Details Date Type Department Care Team (Late st Contact Info) Description 09/13/2021 Telephone [facility] Donor Services [address] [address] Gloria Tristan, RN petr [facility] Social History Tobacco Use Types [...] on file Legal Sex Female 6:07 AM OIL SCOUT Gender Identity Not on file Sexual Orientation [...] [facility] [address] [place] [address] Marlys Mayer MD [address] [place] [address] documented as of this encounter Visit Diagnoses Not on filedocumented in this encounter Additional Health Concerns Infection Onset Date Last Indicated Resolved Time R/O GI Pathogen 09/19/2023 09/19/2023 09/21/2023 7 :33 AM CDT documented as of this encounter Care Teams Linux Programmer Relationship Specialty Start Date End Date Guerrero Middleton PA-C PCP - General Physician Secretarial Teacher 02/13/18 documented as of this encounter
--- OUTSIDE RECORDS SUMMARY | 2024-07-26 04:21 | XMS_ITS | Clinical Summary ---
Author Organization [facility] Address [address] [place] [address] Phone Care Team Providers Care Electron Tube Assembler Name Role Phone Guerrero Middleton PA-C [...] 48h post LHC 4 Active Blood-Glucose Sensor ([employer] G7 Sensor) Device 4 Active buPROPion HCL [...] be different from the original. Marlys Mayer MD--Rewind Operator ([facility] @ ) [...] Data STL ABSTRACTION Provider, Abstract 06/02/2024 Abstract [facility] Heart and Vascular At [address] [place] [address] Marlys Mayer MD 06/02/2024 Telephone [facility] and Vascular At [address] [place] [address] Marlys Mayer MD Medical Records 05/27/2024 External [...] on file Legal Sex Female 6:07 AM LAB COURIER Gender Identity Not on file Sexual Orientation Not on file Occupation Industry Job Start Date Job End Date Not on file Not on file Not on file Not on file Last Filed Vital Signs Vital Sign Reading Time Taken Comments Blood Pressure 112/70 04/20/2024 3:12 PM LAB COURIER Pulse 103 04/20/2024 3:12 PM LAB COURIER Temperature 36.5 C (97.7 F) 11/29/2023 10:58 AM CDT Respiratory Rate 21 11/29/2023 6:15 PM CDT Oxygen Saturation 96% 04/20/2024 3:12 PM LAB COURIER Inhaled Oxygen Concentration - - Weight 86.6 kg (191 lb) 04/20/2024 3:12 PM LAB COURIER Height 165.1 cm (5' 5 ) 04/20/2024 3:12 PM LAB COURIER Body Mass Index 31.78 04/20/2024 3:12 PM LAB COURIER Plan of Treatment Upcoming Encounters Date Type Department Care Team (Late st Contact Info) Description 09/14/2024 3:00 PM CDT Office Visit [facility] Heart and Vascular - [place] [address] [place] [address] Marlys Mayer MD [address] [facility] [address] [facility] [address] [place], [place] [address] Health Maintenance Due Date Last Done Comments [...] history exists Medical Devices Implanted Type Area Job Molder Device Identifier Shelf Expiration Date Model / Serial / Lot Cath Hemodlys Glidespath 23cm [id number] Implanted:Qty : 1 on 04/10/2018 by Kayla Sheffield MD Catheter CR BARD- [employer] [id number] 08/27/2019 [id number] / / [id number] Description:14.5fr x 23cm; R IJ Port-10/29/2018 Implanted:Qty : 2 on 10/29/2018 by Laverne Willoughby MD Explanted:Qty : 1 on 02/18/2019 by Michael Powell MD Port Right: Chest Wall CR BARD- ACCESS SYS 07/28/2019 / / [id number] Description:two 9.6fr fower flow apheresis ports placed by Dr. Willoughby Port- 0 Implanted:Qty : 1 on 05/11/2019 by Alfa Forrest MD Port Left: Chest Wall CR BARD- ACCESS SYS 08/26/2020 / / [id number] Stent Synergy Xd 4.0x12mm Evrlms Elut [id number] - [id number] Implanted:Qty : 1 on 11/29/2023 by Miguel Lewis MD at [facility] Stent N/A: Coronary Bunchball GRISELDA [id number] 03/19/2024 [id number] / / [id number] Procedures Procedure Name Priority Date/Time Associated Diagnosis Comments LDL CHOLESTEROL, DIRECT Stat 09/19/2023 12:59 AM CDT HEMOGLOBIN A1C Routine 09/18/2023 10:18 PM CDT from Last 3 Months or Most Recently Relevant to Health Maintenance Results * LDL CHOLESTEROL, DIRECT (09/19/2023 12:59 AM CDT) LDL CHOLESTEROL, DIRECT 47 <100 mg/dL 09/19/2023 5:52 AM CDT [facility] Blood Venipuncture / Unknown 09/19/2023 12:59 AM CDT 09/19/2023 1:09 AM CDT [facility] - 09/19/2023 5:52 AM CDT LDL [...] ORDERABLES Fin al Result Performing Organization Address [facility]/ZIP Co de Phone Number [facility] mii [facility]# [id number] [address] [place] [address] * (ABNORMAL) HEMOGLOBIN A1C (09/18/2023 10:18 PM CDT) HEMOGLOBIN A1C 9.7(H) <5.7 % 09/19/2023 10:59 AM CDT [employer] [facility] [facility] EST. AVG GLUCOSE, A1C 232 mg/dL 09/19/2023 10:59 AM CDT [facility] Blood Venipuncture / Unknown 09/18/2023 10:18 PM CDT 09/18/2023 10:26 PM CDT [facility] - 09/19/2023 10:59 AM CDT HGB A1C INTERPRETATION NORMAL: <5.7% PRE-DIABETES: 5.7 - 6.4% DIABETES: 6.5% OR GREATER Herlinda Mederos DO CHEMISTRY ORDERABLES Final Resul t Performing Organization Address [facility]/ZIP Co de Phone Number [facility] mii [facility]# [id number] [address] [place] [address] from Last 3 Months or Most Recently Relevant to Health Maintenance Insurance AETNA PPO MCR RX AETNA Medicare Part D RX MEDRANO PLANS (INTERNAL) [facility] RX MEDRANO PLANS (INTERNAL) [facility] AETNA PPO MCR Advance Directives For more information, please contact: [phone] * Full Code (Latest Code Status on [...] 12:11 AM 01/02/2021 4:26 PM Care Teams Electron Tube Assembler Relationship Specialty Start Date End Date Guerrero Middleton PA-C PCP - General Physician Technical Research Scientist 02/13/18
--- OUTSIDE RECORDS SUMMARY | 2024-07-26 04:21 | XMS_ITS | Referral Summary ---
Author Organization [facility] Address [address] [place] [address] Care Team Providers Care Stringer Machine Tender Name Role Phone Mauri Jaime MD Primary Care Provider [phone] Guerrero Middleton PA Unavailable [phone] Allergies Active Allergy Reactions Criticality Noted Date [...] tablet TAKE 1 TABLET BY MOUTH EVERY HEAD OF GLOBAL STRATEGIC PARTNERSHIPS 022 Active fenofibrate (TRIGLIDE) 160 mg tablet [...] on file Legal Sex Female 5:05 AM MANAGER PHILOSOPHY Gender Identity Not on file Sexual Orientation Not on file Last Filed Vital Signs Vital Sign Reading Time Taken Comments Blood Pressure 101/62 06/05/2023 11:38 AM MANAGER PHILOSOPHY Pulse 76 06/05/2023 11:38 AM MANAGER PHILOSOPHY Temperature 36.4 C (97.5 F) 06/05/2023 10:35 AM MANAGER PHILOSOPHY Respiratory Rate 22 06/05/2023 11:38 AM MANAGER PHILOSOPHY Oxygen Saturation 94% 06/05/2023 11:38 AM MANAGER PHILOSOPHY Inhaled Oxygen Concentration - - Weight 81.6 kg (180 lb) 06/05/2023 8:58 AM MANAGER PHILOSOPHY Height 165.1 cm (5' 5 ) 06/05/2023 8:58 AM MANAGER PHILOSOPHY Body Mass Index 29.95 06/05/2023 8:58 AM MANAGER PHILOSOPHY Plan of Treatment Not on file Insurance [facility] [employer] [facility] [employer] [facility] [employer] [facility] [employer] Care Teams Stringer Machine Tender Relationship Specialty Start Date End Date Mauri Jaime MD [address] [place] [address] PCP - General Internal Medicine 05/28/23 Guerrero Middleton PA [address] [place] [address] 05/28/23
--- OUTSIDE RECORDS SUMMARY | 2024-07-26 04:21 | XMS_ITS | Clinical Summary ---
Author Organization [facility] Address [address] [place] [address] Care Team Providers Care Skiving Machine Operator Name Role Phone Mauri Jaime MD Primary Care Provider [phone] Guerrero Middleton PA Unavailable [phone] Allergies Active Allergy Reactions Criticality Noted Date [...] tablet TAKE 1 TABLET BY MOUTH EVERY PHARMACY CASHIER 022 Active fenofibrate (TRIGLIDE) 160 mg tablet [...] on file Legal Sex Female 5:05 AM SOLID WASTE FACILITY OPERATOR Gender Identity Not on file Sexual Orientation Not on file Obstetrics History Last Filed Vital Signs Vital Sign Reading Time Taken Comments Blood Pressure 101/62 06/05/2023 11:38 AM SOLID WASTE FACILITY OPERATOR Pulse 76 06/05/2023 11:38 AM SOLID WASTE FACILITY OPERATOR Temperature 36.4 C (97.5 F) 06/05/2023 10:35 AM SOLID WASTE FACILITY OPERATOR Respiratory Rate 22 06/05/2023 11:38 AM SOLID WASTE FACILITY OPERATOR Oxygen Saturation 94% 06/05/2023 11:38 AM SOLID WASTE FACILITY OPERATOR Inhaled Oxygen Concentration - - Weight 81.6 kg (180 lb) 06/05/2023 8:58 AM SOLID WASTE FACILITY OPERATOR Height 165.1 cm (5' 5 ) 06/05/2023 8:58 AM SOLID WASTE FACILITY OPERATOR Body Mass Index 29.95 06/05/2023 8:58 AM SOLID WASTE FACILITY OPERATOR Plan of Treatment Health Maintenance Due Date [...] 03/04/2021, Additional history exists Insurance ANGY BROOKE [facility] ADVANTRA [facility] ADVANTRA [facility] ADVANTRA Care Teams Skiving Machine Operator Relationship Specialty Start Date End Date Mauri Jaime MD [address] [facility] [address] [place] [address] PCP - General Internal Medicine 05/28/23 Guerrero Middleton PA [address] [facility] [address] [place] [address] 05/28/23
--- OUTSIDE RECORDS SUMMARY | 2024-07-26 04:21 | XMS_ITS | Encounter Summary ---
Author Organization [facility] Address [address] [place] [address] Care Team Providers Care Pattern Keeper Name Role Phone Guerrero Middleton PA-C Primary Care Provide r Encounter Details Date Type Department Care Team (Late st Contact Info) Description 12/08/2021 Telephone [facility] Donor Services [facility] [address] [place] [address] Phoenix Riddle MD [address] [facility] Department [place] [address] Social History Tobacco Use Types [...] on file Legal Sex Female 6:07 AM LIVESTOCK DEALER Gender Identity Not on file Sexual Orientation [...] [facility] [address] [place] [address] Marlys Mayer MD [address] [place] [address] documented as of this encounter Visit Diagnoses Not on filedocumented in this encounter Additional Health Concerns Infection Onset Date Last Indicated Resolved Time R/O GI Pathogen 09/19/2023 09/19/2023 09/21/2023 7 :33 AM CDT documented as of this encounter Care Teams Pattern Keeper Relationship Specialty Start Date End Date Guerrero Middleton PA-C PCP - General Physician Seismology Teacher 02/13/18 documented as of this encounter
--- OUTSIDE RECORDS SUMMARY | 2024-07-26 04:21 | XMS_ITS | Clinical Summary ---
Author Organization [facility] Address [address] [address] Phone Care Team Providers Care Tailer In Name Role Phone Jose G Palmer MD Unavailable [phone] Guerrero Middleton Primary Care Provider Social History [...] to complete this topic Insurance Care Teams Tailer In Relationship Specialty Start Date End Date Guerrero Middleton PAC [address] [place] [address] PCP - General Physician Absence Management Consultant 12/10/16 Jose G Palmer MD Consulting Physician Gastroenterology 12/10/16
--- OUTSIDE RECORDS SUMMARY | 2024-07-26 04:21 | XMS_ITS | Encounter Summary ---
Author Organization [facility] Address [address] [place] [address] Care Team Providers Care Placing Judge Name Role Phone Guerrero Middleton PA-C Primary Care Provide r Reason for Visit * Reason Onset Date Comments Bard Port flush 11/16/2021 Attempted to patel ch pt due to needing bard port flushes Encounter Details Date Type Department Care Team (Late st Contact Info) Description 11/16/2021 Telephone [facility] Oncology [address] [place] [address] Nicole Rosas MD [address] [place] [address] Bard Port flush (Attempted to [...] on file Legal Sex Female 6:07 AM MAINTENANCE APPRENTICE Gender Identity Not on file Sexual [...] [facility] [address] [place] [address] Marlys Mayer MD [address] [place] [address] documented as of this encounter Visit Diagnoses Not on filedocumented in this encounter Additional Health Concerns Infection Onset Date Last Indicated Resolved Time R/O GI Pathogen 09/19/2023 09/19/2023 09/21/2023 7 :33 AM CDT documented as of this encounter Care Teams Placing Judge Relationship Specialty Start Date End Date Guerrero Middleton PA-C PCP - General Physician Children'S Aide 02/13/18 documented as of this encounter
--- OUTSIDE RECORDS SUMMARY | 2024-07-26 04:21 | XMS_ITS | Encounter Summary ---
Author Organization [facility] Address [address] [place] [address] Care Team Providers Care Equipment Maintenance Engineer Name Role Phone Guerrero Middleton PA-C Primary Care Provide r Encounter Details Date Type Department Care Team (Late st Contact Info) Description 03/14/2022 Telephone [facility] Donor Services [facility] [address] [place] [address] Phoenix Riddle MD [address] [facility] [place] [address] Social History Tobacco Use Types [...] on file Legal Sex Female 6:07 AM EXCAVATOR OPERATOR Gender Identity Not on file Sexual [...] [facility] [address] [place] [address] Marlys Mayer MD [address] [place] [address] documented as of this encounter Visit Diagnoses Not on filedocumented in this encounter Additional Health Concerns Infection Onset Date Last Indicated Resolved Time R/O GI Pathogen 09/19/2023 09/19/2023 09/21/2023 7 :33 AM CDT documented as of this encounter Care Teams Equipment Maintenance Engineer Relationship Specialty Start Date End Date Guerrero Middleton PA-C PCP - General Physician Flight Test Mechanic 02/13/18 documented as of this encounter
--- OUTSIDE RECORDS SUMMARY | 2024-07-26 04:21 | XMS_ITS | Encounter Summary ---
Author Organization [facility] Address [address] [place] [address] Care Team Providers Care Agriculture Specialist Name Role Phone Guerrero Middleton PA-C Primary Care Provide r Encounter Details Date Type Department Care Team (Late st Contact Info) Description 10/26/2021 Telephone [facility] Donor Services [address] [address] Nicole Rosas MD [address] [place] [address] Social History Tobacco Use Types [...] on file Legal Sex Female 6:07 AM ELECTRIC CELL TENDER Gender Identity Not on file Sexual [...] [facility] - [place] [address] [place] [address] Marlys Mayer MD [address] [place] [address] documented as of this encounter Visit Diagnoses Not on filedocumented in this encounter Additional Health Concerns Infection Onset Date Last Indicated Resolved Time R/O GI Pathogen 09/19/2023 09/19/2023 09/21/2023 7 :33 AM CDT documented as of this encounter Care Teams Agriculture Specialist Relationship Specialty Start Date End Date Guerrero Middleton PA-C PCP - General Physician Recruit Instructor 02/13/18 documented as of this encounter
--- OUTSIDE RECORDS SUMMARY | 2024-07-26 04:21 | XMS_ITS | Encounter Summary ---
Author Organization [facility] Address 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 Gender Identity Not on file Sexual Orientation [...] ([facility]) Heart and Vascular - [address] [place] [address] Marlys Mayer MD [address] [address] [facility] [address] [place] [address] documented as of this encounter Visit Diagnoses Not on filedocumented in this encounter Additional Health Concerns Infection Onset Date Last Indicated Resolved Time R/O GI Pathogen 09/19/2023 09/19/2023 09/21/2023 7 :33 AM CDT documented as of this encounter Care Teams Field Support Representative Relationship Specialty Start Date End Date Guerrero Middleton PA-C PCP - General Physician Batch Plant Operator 02/13/18 documented as of this encounter
--- OUTSIDE RECORDS SUMMARY | 2024-07-26 04:21 | XMS_ITS | Encounter Summary ---
Author Organization [facility] Address 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 Gender Identity Not on file Sexual Orientation [...] [facility] Vascular - [address] [place] [address] Marlys Mayer MD [address] [address] [place] [address] documented as of this encounter Visit Diagnoses Not on filedocumented in this encounter Additional Health Concerns Infection Onset Date Last Indicated Resolved Time R/O GI Pathogen 09/19/2023 09/19/2023 09/21/2023 7 :33 AM CDT documented as of this encounter Care Teams Health Records Technology Teacher Relationship Specialty Start Date End Date Guerrero Middleton PA-C PCP - General Physician Animal Rescuer 02/13/18 documented as of this encounter
--- OUTSIDE RECORDS SUMMARY | 2024-07-26 04:21 | XMS_ITS | Encounter Summary ---
Author Organization [facility] Address [address] [place] [address] Care Team Providers Care Waist Presser Name Role Phone Guerrero Middleton PA-C Primary Care Provide r Reason for Visit * Reason Onset Date Comments OTHER 11/21/2021 Encounter Details Date Type Department Care Team (Late st Contact Info) Description 11/21/2021 Telephone [facility] Oncology [address] [place] [address] Nicole Rosas MD [address] 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 Gender Identity Not on file Sexual Orientation [...] [facility] V[facility] - [facility] [address] [place] [address] Marlys Mayer MD [address] [place] [address] documented as of this encounter Visit Diagnoses Not on filedocumented in this encounter Additional Health Concerns Infection Onset Date Last Indicated Resolved Time R/O GI Pathogen 09/19/2023 09/19/2023 09/21/2023 7 :33 AM CDT documented as of this encounter Care Teams Waist Presser Relationship Specialty Start Date End Date Guerrero Middleton PA-C PCP - General Physician Mule Operator 02/13/18 documented as of this encounter
--- OUTSIDE RECORDS SUMMARY | 2024-07-26 04:21 | XMS_ITS | Encounter Summary ---
Author Organization [facility] Address 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 Gender Identity Not on file [...] and Vascular - [place] [address] [place] [address] Marlys Mayer MD [address] [place] [address] documented as of this encounter Visit Diagnoses Not on filedocumented in this encounter Additional Health Concerns Infection Onset Date Last Indicated Resolved Time R/O GI Pathogen 09/19/2023 09/19/2023 09/21/2023 7 :33 AM CDT documented as of this encounter Care Teams Cell Maker Relationship Specialty Start Date End Date Guerrero Middleton PA-C PCP - General Physician Sales Product Manager 02/13/18 documented as of this encounter
[2024-07-26 04:28] LABS: Add Urine Microscopic? YES; Appearance Urine Cloudy (Clear); Bacteria Urine 2+ /hpf; Bilirubin Urine Negative (Negative); Blood Urine Negative (Negative); Color Urine Yellow (Yellow); Glucose Urine UA 3+ mg/dL (Negative); Ketones Urine 1+ mg/dL (Negative); Leukocyte Esterase Ur Negative LEU/UL (Negative); Nitrate Urine Negative (Negative); Non Pathogenic Casts 0-2; Protein Urine Negative (Negative); RBC Urine 0-2 /hpf (0-2); Specific Grav Ur 1.028 (1.001-1.035); Squamous Epithelial Cell Urine Moderate /hpf (Few); Urobilinogen Urine 0.2 mg/dL (<2.0); WBC Urine 0-5 /hpf (0-3)
[2024-07-26 04:45] LABS: Basophils Percent Auto 0.3 % (0.2-1.2); Eosinophils Absolute Auto 0.1 K/mm3 (0-0.3); Eosinophils Percent Auto 0.7 % (0-4.4); Hemoglobin 12.2 g/dL (12.0-15.0); Immature Granulocyte Absolute 0.08 K/mm3 (0.00-0.031); Immature Granulocyte Percent A 0.9 % (0-0.5); Lymphocytes Absolute Auto 2.79 K/mm3 (0.9-3.2); Lymphocytes Percent Auto 30.7 % (18.3-44.2); Mean Corpuscular HGB Conc 33.9 g/dl (32-36); Mean Corpuscular Hemoglobin 30.7 pg (26-34); Mean Corpuscular Volume 90.7 fl (80-100); Mean Platelet Volume 9.7 fl (7.4-10.4); Monocytes Absolute Auto 0.4 K/mm3 (0.1-0.6); Monocytes Percent Auto 4.4 % (2.6-8.5); Neutrophils Absolute Auto 5.7 K/mm3 (1.3-6.7); Platelet Count Result 325 k/mm3 (150-375); Red Blood Count 3.97 M/mm3 (4.2-5.4); Red Cell Distribution Width 15.6 % (11.5-14.5); White Blood Count 9.1 K/mm3 (4.5-10.0)
[2024-07-26] MEDS: SODIUM CHLORIDE 0.9% IV 3,000 ML 999 ML IV CONT (05:06)
[2024-07-26] MEDS: HYDROmorphone HCL INJ (*CRX) 1 MG/ML SYR 2 MG IV PUSH (05:06)
[2024-07-26 05:17] LABS: Alanine Aminotransferase 19 U/L (6-35); Albumin Level 3.1 g/dL (3.5-5.1); Alkaline Phosphatase 122 U/L (38-126); Aspartate Amino Transferase 21 U/L (14-36); Bilirubin,Total 0.8 mg/dL (0.2-1.3); Blood Urea Nitrogen 10 mg/dL (7-17); Calcium 8.9 mg/dL (8.4-10.2); Chloride 101 mmol/L (98-107); Estimated CRCL calculation 125 ml/min; Estimated Glomerular Filt Rate > 60; Glucose 238 mg/dL (65-110); Potassium 4.4 mmol/L (3.4-5.0); Sodium 134 mmol/L (137-145)
[2024-07-26 05:18] LABS: Anion Gap 8 mmol/L (4-12)
[2024-07-26] MEDS: ONDANSETRON INJ 4 MG/2 ML VIAL IV PUSH ×2 (05:28→10:03)
--- NOTE | 2024-07-26 05:55 | ED.GENADULT ---
HPI - General Adult General Chief complaint: Abdominal Pain Stated complaint: Abd pain-chronic Pancreatis Time Seen by Provider: 07/26/24 04:06 History of Present Illness HPI narrative: This is a 48-year-old female with history of chronic pancreatitis secondary to hypertriglyceridemia. She is well known to our emergency department. The pain started 3 days ago and is looking in the left side of her abdomen and radiates to her back. Associated with nausea vomiting. She denies fevers chills chest pain difficulty breathing or urinary symptoms. Related Data Home Medications ?Medication ?Instructions ?Recorded ?Confirmed ?Last Taken ?Type levothyroxine 200 mcg tablet 200 mcg PO DAILY 07/21/23 06/30/24 06/19/24 History yqmsau-gkyugzot-ebzsfdf 2 cap PO TIDWMEAL 07/22/23 06/30/24 06/18/24 History 36,000-114,000-180,000 unit capsule,delay rel (Creon) citalopram 40 mg tablet 40 mg PO DAILY 08/31/23 06/30/24 06/19/24 History bupropion HCl 150 mg tablet,12 hr 150 mg PO HS 10/09/23 06/30/24 06/18/24 History sustained-release insulin aspart U-100 100 unit/mL See Rx Instructions .Route .COMPLEX 03/31/24 06/30/24 06/19/24 History subcutaneous solution (Novolog U-100 Insulin aspart) metoprolol succinate 25 mg 12.5 mg PO DAILY 03/31/24 06/30/24 06/19/24 History tablet,extended release 24 hr metoclopramide HCl 5 mg tablet 5 mg PO TIDWM nausea and vomiting 06/07/24 06/30/24 06/19/24 History Allergies Allergy/AdvReac Type Severity Reaction Status Date / Time adhesive tape Allergy Mild Rash Verified 06/30/24 11:59 [place] pepper (green pepper) Allergy Unknown Hives Verified 06/30/24 11:59 sucralose (From Splenda Allergy Migraine Verified 06/30/24 11:59 (sucralose)) Artificial Sweetners AdvReac Migraine Uncoded 06/30/24 11:59 PMFSH Past Medical History Medical History Chylomicronemia syndrome CAD (coronary artery disease) Anxiety BMI 31.0-31.9,adult 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 Abnormal CT scan, esophagus Nausea Occult blood in stools Colon cancer screening Hypertriglyceridemia PCOS (polycystic ovarian syndrome) GERD (gastroesophageal reflux disease) 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 Allergic rhinitis Insulin dependent diabetes mellitus Chronic pancreatitis (~09/02/23) Port-A-Cath in place Lipoprotein deficiency Hyperlipemia Headache Surgical History Surgical History History of wisdom tooth extraction History of tubal ligation History of partial hysterectomy History of endometrial ablation History of appendectomy History of loop electrical excision procedure (LEEP) History of exploratory laparotomy History of dilatation and curettage History of conization of cervix History of tonsillectomy Family History Family History Father Alcohol abuse Hypercholesteremia Hypertension Family history of alcoholism Family history of cardiovascular disease Diabetes mellitus Mother Hypercholesteremia Hypothyroid Cerebrovascular accident Family history of cardiovascular disease Diabetes mellitus Grandparent Skin cancer Colon cancer Heart disease Hypothyroid Cerebrovascular accident Sibling Autoimmune disorder Hypothyroid Kidney disorder Hypertension Diabetes mellitus Other Family history of kidney disease Social History Social History Social History: She smokes up to 1ppd since age 16yo. No alcohol or drug use. She has dog and a cat at home. Surrogate medical decision maker: José Miguel Jones, spouse. Code status: Full Smoking packs per day: 0.5 Smoking cigarettes per day: 10.0 Years smoked: 32 Smoking pack-years: 16.00 Smoking status: Current every day smoker Tobacco type: cigarettes Second hand tobacco smoke exposure: No Alcohol intake: never Drinks per week: 0 Substance use: never Substance use type: does not use Do You Feel Safe in your Home?: Yes Lack of Transportation: YES Lack of Food: Never True Current Housing: I Have Housing Concerned About Future Housing: No Difficulty Paying Gas/Electric Bills: No Difficulty Paying for Meds: YES Currently Unemployed: No Education: Associate Degree Difficulty w/ Childcare or Family Care: No Living arrangements: with family Occupation/Education: retired 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 Head: atraumatic. EYES: EOMI, NOSE: Atraumatic NECK: Trachea midline RESPIRATORY: No increased rate of breathing CTAB CARDIOVASCULAR: RRR, no peripheral edema ABDOMINAL: Tenderness to palpation the epigastric region w/ voluntary guarding MUSCULOSKELETAl: No obvious deformities NEURO: Alert. Moving 4/4 extremities SKIN:: Warm, dry. Normal color PSYCHIATRIC: Normal affect Course Vital Signs Vital signs: Vital Signs Temperature 97.0 F L 07/25/24 22:22 Pulse Rate 110 H 07/25/24 22:22 Respiratory Rate 16 07/25/24 22:22 Blood Pressure 135/78 07/25/24 22:22 Pulse Oximetry 97 07/25/24 22:22 Oxygen Delivery Room Air 07/25/24 22:22 Temperature 97.0 F L 07/25/24 22:22 Pulse Rate 100 07/26/24 04:26 Respiratory Rate 17 07/26/24 04:26 Blood Pressure 130/87 07/26/24 04:26 Pulse Oximetry 97 07/26/24 04:26 Oxygen Delivery Room Air 07/25/24 22:22 Medical Decision Making MDM Narrative Medical decision making narrative: -Course: 48-year-old female is well known to our department for hypertriglyceridemia pancreatitis. Triglycerides and lipase were TNP. Clinically this is her typical presentation for pancreatitis. She will be started on insulin drip and D5 with potassium supplementation. She has been given pain control and fluid resuscitation. She will be placed in the ICU for further management Vital Signs Vital Signs: Vital Signs Temperature 97.0 F L 07/25/24 22:22 Pulse Rate 110 H 07/25/24 22:22 Respiratory Rate 16 07/25/24 22:22 Blood Pressure 135/78 07/25/24 22:22 Pulse Oximetry 97 07/25/24 22:22 Oxygen Delivery Room Air 07/25/24 22:22 Temperature 97.0 F L 07/25/24 22:22 Pulse Rate 100 07/26/24 04:26 Respiratory Rate 17 07/26/24 04:26 Blood Pressure 130/87 07/26/24 04:26 Pulse Oximetry 97 07/26/24 04:26 Oxygen Delivery Room Air 07/25/24 22:22 Lab Data 07/26/24 04:16 07/26/24 04:16 Labs: Lab Results 07/26/24 Range/Units 04:16 WBC 9.1 (4.5-10.0) K/mm3 RBC 3.97 L (4.2-5.4) M/mm3 Hgb 12.2 (12.0-15.0) g/dL Hct 36.0 L (37.0-47.0) % MCV 90.7 (80-100) fl MCH 30.7 (26-34) pg MCHC 33.9 (32-36) g/dl RDW 15.6 H (11.5-14.5) % Plt Count 325 (150-375) k/mm3 MPV 9.7 (7.4-10.4) fl Immature Gran % (Auto) 0.9 H (0-0.5) % Neut % (Auto) 63.0 (45.5-73.1) % Lymph % (Auto) 30.7 (18.3-44.2) % Andrews % (Auto) 4.4 (2.6-8.5) % Eos % (Auto) 0.7 (0-4.4) % Baso % (Auto) 0.3 (0.2-1.2) % Lymph # (Auto) 2.79 (0.9-3.2) K/mm3 Andrews # (Auto) 0.4 (0.1-0.6) K/mm3 Eos # (Auto) 0.1 (0-0.3) K/mm3 Baso # (Auto) 0.0 (0.0-0.1) K/mm3 Abs Immat Gran (auto) 0.08 H (0.00-0.031) K/mm3 Absolute Neuts (auto) 5.7 (1.3-6.7) K/mm3 Absolute Nucleated RBC 0.000 (0.0-0.012) K/mm3 Nucleated RBC % 0.0 (0.0-0.2) % Sodium 134 L (137-145) mmol/L Potassium 4.4 (3.4-5.0) mmol/L Chloride 101 (98-107) mmol/L Carbon Dioxide TNP Anion Gap 8 (4-12) mmol/L BUN 10 (7-17) mg/dL Creatinine 0.50 L (0.7-1.0) mg/dL Estim Creat Clear Calc 125 ml/min Estimated GFR > 60 (59 - ) Glucose 238 H (65-110) mg/dL Calcium 8.9 (8.4-10.2) mg/dL Total Bilirubin 0.8 (0.2-1.3) mg/dL AST 21 (14-36) U/L ALT 19 (6-35) U/L Alkaline Phosphatase 122 (38-126) U/L Total Protein 8.0 (6.3-8.2) g/dL Albumin 3.1 L (3.5-5.1) g/dL Triglycerides TNP Lipase TNP Urine Color Yellow (Yellow) Urine Appearance Cloudy H (Clear) Urine pH 5.0 (5.0-9.0) Ur Specific [place] 1.028 (1.001-1.035) Urine Protein Negative (Negative) mg/dL Urine Glucose (UA) 3+ H (Negative) mg/dL Urine Ketones 1+ H (Negative) mg/dL Ur Blood (Man) Negative (Negative) Urine Nitrate Negative (Negative) Urine Bilirubin Negative (Negative) Urine Urobilinogen 0.2 (<2.0) mg/dL Leukocyte Esterase Rfl Negative (Negative) STEPHEN/UL Urine RBC 0-2 (0-2) /hpf Urine WBC 0-5 (0-3) /hpf Ur Squamous Epith Cells Moderate (Few) /hpf Urine Bacteria 2+ H /hpf Urine Casts 0-2 Critical Care Time Critical Care Time Critical Care Time: Yes Total Critical Care Time: 35 Discharge Plan Discharge Clinical Impression: Chylomicronemia syndrome, Pancreatitis Patient Disposition: Still a Patient Condition: Stable Patient Language: Malaysian Prescriptions: No Action metformin 500 mg tablet 1,000 mg PO BID Qty: 180 1RF Rx Instructions: with morning & evening meals pantoprazole [Protonix] 40 mg tablet,delayed release (DR/EC) 40 mg PO BID Qty: 30 0RF levothyroxine 200 mcg tablet 200 mcg PO DAILY Creon 36,000-114,000- 180,000 unit capsule,delayed release(DR/EC) 2 cap PO TIDWMEAL Rx Instructions: Take 2 capsules with meals and 1 capsule with any snacks. aspirin 81 mg Tablet,Delayed Release (Dr/Ec) 81 mg PO QAM Qty: 30 0RF citalopram 40 mg tablet 40 mg PO DAILY Rx Instructions: TAKE 1 TABLET BY MOUTH EVERY DAY bupropion HCl 150 mg tablet sustained-release 12 hr 150 mg PO HS ondansetron 4 mg tablet,disintegrating 4 mg PO Q8H PRN (Reason: nausea and vomiting) Qty: 10 0RF insulin aspart U-100 [Novolog U-100 Insulin aspart] 100 unit/mL solution See Rx Instructions .ROUTE .COMPLEX Rx Instructions: infused via insulin pump metoprolol succinate 25 mg tablet extended release 24 hr 12.5 mg PO DAILY docusate sodium 100 mg Capsule 100 mg PO Q12HR PRN (Reason: constipation) Qty: 20 0RF metoclopramide HCl 5 mg tablet 5 mg PO TIDWM cyclobenzaprine 10 mg Tablet 10 mg PO Q8HR 14 Days Qty: 42 0RF hydrocodone-acetaminophen 5-325 mg Tablet 1 tablet PO Q4H PRN (Reason: Pain Rated 4-6) 5 Days Qty: 12 0RF Brilinta 90 mg tablet 90 mg PO BID Qty: 180 0RF (DME) pen needle, diabetic [BD Ultra-Fine Diandra Pen Needle] 32 gauge x 5/32 needle See Rx Instructions .ROUTE .MEDSUPPLY Qty: 1200 12RF Rx Instructions: 4 times daily (DME) insulin syringe-needle U-100 [BD Insulin Syringe Ultra-Fine] 0.3 mL 31 gauge x 5/16 syringe See Rx Instructions .ROUTE .MEDSUPPLY Qty: 100 12RF Rx Instructions: 4 times a day atorvastatin 80 mg tablet 80 mg PO HS Qty: 90 1RF fenofibrate 160 mg tablet 160 mg PO DAILY Qty: 90 1RF trazodone 100 mg tablet 200 mg PO HS Qty: 180 1RF lorazepam 1 mg tablet 1 mg PO QHS PRN (Reason: sleep) Qty: 90 0RF Follow-up/Referrals: Jose Zuniga, MARKER MACHINE ATTENDANT [Primary Care Provider] -
--- NOTE | 2024-07-26 06:39 | PC.NURSE ---
Per ERP , have both drips, insulin and bag of K/D5/NS going at the ordered rates at the same time.
[2024-07-26 06:49] LABS: Glucose Point of Care 198 mg/dl (65-105)
[2024-07-26] MEDS: KCL 20 MEQ/D5/0.45% SOD CHL 1,000 ML 150 ML IV CONT ×2 (06:51→23:35)
[2024-07-26] MEDS: INSULIN HUMAN REGULAR (*BKC) 100 UNITS in SODIUM CHLORIDE 0.9% IV 99 ML 8.6 UNITS IV CONT (06:53)
[2024-07-26 08:08] LABS: Glucose Point of Care 194 mg/dl (65-105)
--- NOTE | 2024-07-26 08:37 | P.HP_ITS ---
H&P: HPI History of Present Illness Date/Time: 07/26/24 08:37 Chief Complaint: Abdominal pain Narrative: Patient is a 48yo female with hx of hyperTG, pancreatitis and DM who presented to the emergency department with complaints of ABD pain radiating to her back. Patient has past medical hx of hypertriglyceridemia requiring insulin infusion and plasmapheresis with last episode being 05/2024. Patient presented to the emergency department with worsening abdominal pain for the last 2-3 days. Patient received use multiple +of pheresis treatments outpatient she has had multiple inpatient hospitalizations here at [facility] secondary to her hypertriglyceridemia which leads to an acute exacerbation pancreatitis. Initial findings in the emergency department showed triglycerides too to calculate due to blood being grossly lipemic. At this time patient was started on an insulin drip in the emergency department and patient was admitted to ICU for further management to also have consult to Nephrology plasmapheresis. 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 Allergic rhinitis Insulin dependent diabetes mellitus Chronic pancreatitis (~09/02/23) Port-A-Cath in place Lipoprotein deficiency Hyperlipemia Headache Surgical History Surgical History History of wisdom tooth extraction History of tubal ligation History of partial hysterectomy History of endometrial ablation History of appendectomy History of loop electrical excision procedure (LEEP) History of exploratory laparotomy History of dilatation and curettage History of conization of cervix History of tonsillectomy Family History Family History Father Alcohol abuse Hypercholesteremia Hypertension Family history of alcoholism Family history of cardiovascular disease Diabetes mellitus Mother Hypercholesteremia Hypothyroid Cerebrovascular accident Family history of cardiovascular disease Diabetes mellitus Grandparent Skin cancer Colon cancer Heart disease Hypothyroid Cerebrovascular accident Sibling Autoimmune disorder Hypothyroid Kidney disorder Hypertension Diabetes mellitus Other Family history of kidney disease Social History Social History Social History: She smokes up to 1ppd since age 16yo. No alcohol or drug use. She has dog and a cat at home. Surrogate medical decision maker: José Miguel Jones, spouse. Code status: Full Smoking packs per day: 0.5 Smoking cigarettes per day: 10.0 Years smoked: 32 Smoking pack-years: 16.00 Smoking status: Current every day smoker Tobacco type: cigarettes Second hand tobacco smoke exposure: No Alcohol intake: never Drinks per week: 0 Substance use: never Substance use type: does not use Do You Feel Safe in your Home?: Yes Lack of Transportation: No Lack of Food: Never True Current Housing: I Have Housing Concerned About Future Housing: No Difficulty Paying Gas/Electric Bills: No Difficulty Paying for Meds: No Currently Unemployed: No Education: Decline to Answer Difficulty w/ Childcare or Family Care: No Living arrangements: with family Occupation/Education: retired 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 Gender identity (if verbalized by the patient): Female Spiritual care concerns: No Meds Home Medications and Allergies Home Medications ?Medication ?Instructions ?Recorded ?Confirmed ?Type metformin 500 mg tablet 1,000 mg (2 x 500 mg) PO BID #180 12/19/22 07/26/24 Rx tabs levothyroxine 200 mcg tablet 200 mcg PO DAILY 07/21/23 07/26/24 History cylyqa-ywuoyyem-qpgvedc 2 cap PO TIDWMEAL 07/22/23 07/26/24 History 36,000-114,000-180,000 unit capsule,delay rel (Creon) aspirin 81 mg tablet,delayed 81 mg PO QAM #30 tabs 07/25/23 07/26/24 Rx release pantoprazole 40 mg tablet,delayed 40 mg PO BID #30 tabs 08/22/23 07/26/24 Rx release (Protonix) citalopram 40 mg tablet 40 mg PO DAILY 08/31/23 07/26/24 History ticagrelor 90 mg tablet (Brilinta) 90 mg PO BID #180 tabs 10/03/23 07/26/24 Rx bupropion HCl 150 mg tablet,12 hr 150 mg PO HS 10/09/23 07/26/24 History sustained-release pen needle, diabetic 32 gauge x #1,200 ea 11/14/23 07/26/24 Rx 5/32 (BD Ultra-Fine Diandra Pen Needle) insulin syringe-needle U-100 0.3 #100 ea 11/29/23 07/26/24 Rx mL 31 gauge x 5/16 (BD Insulin Syringe Ultra-Fine) atorvastatin 80 mg tablet 80 mg PO HS #90 tabs 02/12/24 07/26/24 Rx ondansetron 4 mg disintegrating 4 mg PO Q8H PRN nausea and 02/27/24 07/26/24 Rx tablet vomiting #10 tabs insulin aspart U-100 100 unit/mL See Rx Instructions .Route .COMPLEX 03/31/24 07/26/24 History subcutaneous solution (Novolog U-100 Insulin aspart) metoprolol succinate 25 mg 12.5 mg PO DAILY 03/31/24 07/26/24 History tablet,extended release 24 hr docusate sodium 100 mg capsule 100 mg PO Q12HR PRN constipation 04/08/24 Rx #20 caps fenofibrate 160 mg tablet 160 mg PO DAILY #90 tabs 04/27/24 07/26/24 Rx metoclopramide HCl 5 mg tablet 5 mg PO TIDWM nausea and vomiting 06/07/24 07/26/24 History trazodone 100 mg tablet 200 mg (2 x 100 mg) PO HS #180 tabs 06/17/24 07/26/24 Rx cyclobenzaprine 10 mg tablet 10 mg PO Q8HR 14 days #42 tabs 06/22/24 07/26/24 Rx lorazepam 1 mg tablet 1 mg PO QHS PRN sleep #90 tabs 07/20/24 07/26/24 Rx Allergies Allergy/AdvReac Type Severity Reaction Status Date / Time adhesive tape Allergy Mild Rash Verified 06/30/24 11:59 [place] pepper (green pepper) Allergy Unknown Hives Verified 06/30/24 11:59 sucralose (From Splenda Allergy Migraine Verified 06/30/24 11:59 (sucralose)) Artificial Sweetners AdvReac Migraine Uncoded 06/30/24 11:59 Vital Signs Vital Signs - 24 hr 07/25/24 22:22 07/26/24 04:26 07/26/24 06:30 Temperature 97.0 F L Pulse Rate 110 H 100 86 Respiratory Rate 16 17 17 Blood Pressure 135/78 130/87 148/94 H Pulse Oximetry 97 97 92 Oxygen Delivery Room Air Exam Const: General: comfortable and no acute distress Other: alert oriented female appears acute on chronically ill. lethargic HENMT: Mouth: Yes moist mucous membranes Eyes: General: appearance normal, both eyes and all related structures Pupils: Equal, round and reactive pupils present Neck: Neck: supple and no JVD Resp: Effort & Inspection: normal respiratory effort Auscultation: clear to auscultation bilaterally Cardio: Rate: regular rate Rhythm: regular rhythm GI: GI Palp: Yes Tenderness to palpation present (GI) and Yes Guarding due to palpation present (GI) Auscultation: normal bowel sounds Other: obese Skin: General skin exam: normal color and no rashes or lesions noted Wounds: no wounds Neuro: Speech: normal speech Motor exam (neuro): 5/5 motor strength present throughout Sensory Exam: normal sensation Extrem: General: normal to inspection Psych: Mental Status: mental status grossly normal H&P: Results Labs Labs: Short CBC 07/26/24 Range/Units 04:16 WBC 9.1 (4.5-10.0) K/mm3 Hgb 12.2 (12.0-15.0) g/dL Hct 36.0 L (37.0-47.0) % Plt Count 325 (150-375) k/mm3 BMP 07/26/24 04:16 Sodium 134 L Potassium 4.4 Chloride 101 Carbon Dioxide TNP BUN 10 Creatinine 0.50 L Glucose 238 H Calcium 8.9 Liver Function 07/26/24 Range/Units 04:16 Total Bilirubin 0.8 (0.2-1.3) mg/dL AST 21 (14-36) U/L ALT 19 (6-35) U/L Alkaline Phosphatase 122 (38-126) U/L Albumin 3.1 L (3.5-5.1) g/dL Urine 07/26/24 Range/Units 04:16 Urine Color Yellow (Yellow) Urine Appearance Cloudy H (Clear) Urine pH 5.0 (5.0-9.0) Ur Specific [place] 1.028 (1.001-1.035) Urine Protein Negative (Negative) mg/dL Urine Glucose (UA) 3+ H (Negative) mg/dL Assessment and Plan Assessment and plan (1) Hypertriglyceridemia: Code(s): E78.1 - Pure hyperglyceridemia Status: Inactive Assessment and Plan: * TG level unmeasurable due to lipemic. * Last admit 05/2024 * Admitted to ICU. to Start insulin drip * aggressive IV fluids. * Hypoglycemia protocol started. * Nephrology consulted for plasmapheresis. She has ports in place. * Daily TG levels. * Resume home Lipitor and fenofibrate once reconciled (2) Abdominal pain: Code(s): R10.9 - Unspecified abdominal pain Status: Acute Assessment and Plan: Patient presents with abdominal pain. TG level read TNP. HX chronic Pancreatitis * Lipase TNPl. * LFTs normal. * received Zofran for n/v. Dilaudid for pain. (3) Chronic pancreatitis: Onset Date: ~09/02/23 Qualifiers: Pancreatitis type: other Qualified Code(s): K86.1 - Other chronic sy creatitis Code(s): K86.1 - Other chronic pancreatitis Status: Chronic Assessment and Plan: Suspect patient with chronic pancreatitis related to frequent bouts of hyperTG/pancreatitis. * Resume Creon. * Patient would benefit from outpatient pain specialist (4) CAD (coronary artery disease): Code(s): I25.10 - Atherosclerotic heart disease of [place] coronary artery without angina pectoris Status: Acute Assessment and Plan: She has a history of coronary disease and undergoing a multivessel stent . * Resume ASA, Brilinta and Lipitor. (5) Type 2 diabetes mellitus: Qualifiers: Diabetes mellitus complication status: without complication Diabetes mellitus retirement insulin use: with retirement use Qualified Code(s): E11.9 - Type 2 diabetes mellitus without complications; Z79.4 - assisted (current) use of insulin Code(s): E11.9 - Type 2 diabetes mellitus without complications Status: Chronic Assessment and Plan: Patient normally on an insulin pump. * Accu-Cheks q1hr * Insulin gtt per protocol * NPO at this time * encourage lifestyle modifications and weight loss * Optimize Justin inhibitors and statins. * Watch for hypoglycemia/hypoglycemic protocol ordered Plan Code status: Full code per patient DVT prophylaxis: Lovenox Stress ulcer prophylaxis: Protonix 40 daily PT/OT notes: NA Disposition: patient admitted to ICU for further treatment hyper triglyceridemia acute exacerbation pancreatitis currently on an insulin drip with consult to Nephrology for possible plasmapheresis. Quality VTE Prophylaxis VTE prophylaxis: pharmacologic ordered -Patient's previous records reviewed on admission -ER notes reviewed in detail on admission -discussed all findings and current treatment plan with patient/Family/POA -Consultations reviewed for recommendations -Patient's disposition for safe discharge discussed with family preservation caseworker Dictation performed by [employer] direct speech recognition software, therefore slate roofer helper variants and typographical errors may occur. Hospitalist MIPS Advance Care Plan I have confirmed that the patient's Advanced Care Plan is present, code status is documented, or surrogate decision maker is listed in patient medical record.: Yes Medication Reconciliation I have utilized all available resources to obtain, update and review the patients current medications (includes all prescriptions, OTC, herbals, cannabis, and nutritional supplements).: Yes The patient is not eligible for med reconciliation; the patient is in a emergent medical situation where delaying treatment would jeopardize the patients health.: No
[2024-07-26 09:37] LABS: Blood Urea Nitrogen 8 mg/dL (7-17); Chloride 106 mmol/L (98-107); Estimated CRCL calculation 122 ml/min; Estimated Glomerular Filt Rate > 60; Glucose 134 mg/dL (65-110); Potassium 3.3 mmol/L (3.4-5.0); Sodium 135 mmol/L (137-145)
--- NOTE | 2024-07-26 09:43 | P.CONIN_ITS ---
Assessment and Plan Assessment and plan (1) Abdominal pain: Code(s): R10.9 - Unspecified abdominal pain Status: Acute Assessment and Plan: patient has chronic abdominal pain with intermittent exacerbation which is likely secondary to hypertriglyceridemia and chronic pancreatitis. In the past patient has been admitted the abdominal pain with normal lipase level. Lipase level was unable to be calculated at this time due to grossly lipemic blood. Her triglyceride level was also could not be measured patient has been start insulin infusion and will be continued. continue insulin infusion and continue IV fluids with dextrose. I will increase the IV fluid rate to 200 I have consulted Nephrology for plasmapheresis and monitor triglyceride levels replace low potassium p.r.n. Dilaudid for pain control npo (2) CAD (coronary artery disease): Code(s): I25.10 - Atherosclerotic heart disease of [place] coronary artery without angina pectoris Status: Acute Assessment and Plan: continue aspirin Brilinta statin (3) Hypertriglyceridemia: Code(s): E78.1 - Pure hyperglyceridemia Status: Chronic Assessment and Plan: see above (4) Type 2 diabetes mellitus: Qualifiers: Diabetes mellitus fdc insulin use: with long term care pharmacist use Diabetes mellitus complication status: without complication Qualified Code(s): E11.9 - Type 2 diabetes mellitus without complications; Z79.4 - [facility] (current) use of insulin Code(s): E11.9 - Type 2 diabetes mellitus without complications Status: Chronic Assessment and Plan: patient is on insulin pump at home which is now off as patient is on insulin infusion. continue metformin and regular (5) Nausea & vomiting: Code(s): R11.2 - Nausea with vomiting, unspecified Status: Acute Assessment and Plan: P.r.n. Zofran (6) GERD (gastroesophageal reflux disease): Qualifiers: Esophagitis presence: esophagitis presence not specified Qualified Code(s): K21.9 - Gastro-esophageal reflux disease without esophagitis Code(s): K21.9 - Gastro-esophageal reflux disease without esophagitis Status: Acute Assessment and Plan: continue PPI (7) Chronic pancreatitis: Qualifiers: Pancreatitis type: unspecified pancreatitis type Qualified Code(s): K 86.1 - Other chronic pancreatitis Code(s): K86.1 - Other chronic pancreatitis Status: Acute Assessment and Plan: resume Creon pills once a abdominal pain is better and patient is back on her diet (8) Hypothyroidism: Qualifiers: 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 Qualified Code(s): E03.8 - Other specified hypothyroidism; E06.3 - Autoimmune thyroiditis Code(s): E03.9 - Hypothyroidism, unspecified Status: Acute Assessment and Plan: continue levothyroxine check TSH Plan DVT prophylaxis - Lovenox Stress ulcer prophylaxis - PPI Nutrition - npo Code Status - Full Code Total Critical Care Time - 30 minutes Due to a high probability of clinically significant, life threatening deterioration, the patient required my highest level of preparedness to intervene emergently and I personally spent this critical care time directly and personally managing the patient. This critical care time included obtaining a history; examining the patient; pulse oximetry; ordering and review of studies; arranging urgent treatment with development of a management plan; evaluation of patient's response to treatment; frequent reassessment; and discussions with other providers. It was exclusive of separately billable procedures and treating other patients and teaching time. Please see Assessment and Plan section and the rest of the note for further information on patient assessment and treatment Video System Repairer Consult Note Consult date: 07/26/24 Reason for consult: abdominal pain, hypertriglyceridemia HPI: Casandra Jones is a 48 year old female with significant past medical history of chronic pancreatitis, Chylomicronemia syndrome, GERD, hypertriglyceridemia, hypothyroidism, insulin-dependent diabetes and on insulin, lipoprotein deficiency, polycystic ovarian syndrome, Port-A-Cath x2, coronary artery disease status post stent x3 in June 2023 at [facility], history of multiple plasmapheresis as outpatient and inpatient presented to the ED on this morning with abdominal pain. Patient states that her abdominal pain is chronic and intermittent and reoccurred starting redness stay. she states pain goes in the left side of her back. Pain rates at 8/10. She states the pain is crampy. Pain was associated with nausea vomiting. She also had intermittent constipation and diarrhea. She states that whenever she gets pain home she stops eating and only when the pain does not get better she comes to the ER. Patient was admitted in May of this year. She denies any dysuria hematuria hematochezia melena fever shortness of breath chest pain cough. All other systems were reviewed and were negative in the past patient has been admitted with abdominal pain secondary to hypertriglyceridemia and occasionally pancreatitis. Patient has received plasmapheresis sessions in the past. ER showed triglyceride level too high to calculate due to blood being grossly lipemic. patient was started on insulin infusion along with IV fluids dextrose admitted to ICU for further evaluation management. Patient states that she still has nausea and also has abdominal pain. She states the Dilaudid she received in the ER has worn off. 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 Allergic rhinitis Insulin dependent diabetes mellitus Chronic pancreatitis (~09/02/23) Port-A-Cath in place Lipoprotein deficiency Hyperlipemia Headache Surgical History Surgical History History of wisdom tooth extraction History of tubal ligation History of partial hysterectomy History of endometrial ablation History of appendectomy History of loop electrical excision procedure (LEEP) History of exploratory laparotomy History of dilatation and curettage History of conization of cervix History of tonsillectomy Family History Family History Father Alcohol abuse Hypercholesteremia Hypertension Family history of alcoholism Family history of cardiovascular disease Diabetes mellitus Mother Hypercholesteremia Hypothyroid Cerebrovascular accident Family history of cardiovascular disease Diabetes mellitus Grandparent Skin cancer Colon cancer Heart disease Hypothyroid Cerebrovascular accident Sibling Autoimmune disorder Hypothyroid Kidney disorder Hypertension Diabetes mellitus Other Family history of kidney disease Social History Social History Social History: She smokes up to 1ppd since age 16yo. No alcohol or drug use. She has dog and a cat at home. Surrogate medical decision maker: José Miguel Adamssergio, spouse. Code status: Full Smoking packs per day: 0.5 Smoking cigarettes per day: 10.0 Years smoked: 32 Smoking pack-years: 16.00 Smoking status: Current every day smoker Tobacco type: cigarettes Second hand tobacco smoke exposure: No Alcohol intake: never Drinks per week: 0 Substance use: never Substance use type: does not use Do You Feel Safe in your Home?: Yes Lack of Transportation: No Lack of Food: Never True Current Housing: I Have Housing Concerned About Future Housing: No Difficulty Paying Gas/Electric Bills: No Difficulty Paying for Meds: No Currently Unemployed: No Education: Decline to Answer Difficulty w/ Childcare or Family Care: No Living arrangements: with family Occupation/Education: retired 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 Gender identity (if verbalized by the patient): Female Spiritual care concerns: No Meds Home Medications and Allergies Home Medications ?Medication ?Instructions ?Recorded ?Confirmed ?Type metformin 500 mg tablet 1,000 mg (2 x 500 mg) PO BID #180 12/19/22 07/26/24 Rx tabs levothyroxine 200 mcg tablet 200 mcg PO DAILY 07/21/23 07/26/24 History tawrpa-spcdbzcr-jcawpwp 2 cap PO TIDWMEAL 07/22/23 07/26/24 History 36,000-114,000-180,000 unit capsule,delay rel (Creon) aspirin 81 mg tablet,delayed 81 mg PO QAM #30 tabs 07/25/23 07/26/24 Rx release pantoprazole 40 mg tablet,delayed 40 mg PO BID #30 tabs 08/22/23 07/26/24 Rx release (Protonix) citalopram 40 mg tablet 40 mg PO DAILY 08/31/23 07/26/24 History ticagrelor 90 mg tablet (Brilinta) 90 mg PO BID #180 tabs 10/03/23 07/26/24 Rx bupropion HCl 150 mg tablet,12 hr 150 mg PO HS 10/09/23 07/26/24 History sustained-release pen needle, diabetic 32 gauge x #1,200 ea 11/14/23 07/26/24 Rx 5/32 (BD Ultra-Fine Diandra Pen Needle) insulin syringe-needle U-100 0.3 #100 ea 11/29/23 07/26/24 Rx mL 31 gauge x 5/16 (BD Insulin Syringe Ultra-Fine) atorvastatin 80 mg tablet 80 mg PO HS #90 tabs 02/12/24 07/26/24 Rx ondansetron 4 mg disintegrating 4 mg PO Q8H PRN nausea and 02/27/24 07/26/24 Rx tablet vomiting #10 tabs insulin aspart U-100 100 unit/mL See Rx Instructions .Route .COMPLEX 03/31/24 07/26/24 History subcutaneous solution (Novolog U-100 Insulin aspart) metoprolol succinate 25 mg 12.5 mg PO DAILY 03/31/24 07/26/24 History tablet,extended release 24 hr docusate sodium 100 mg capsule 100 mg PO Q12HR PRN constipation 04/08/24 07/26/24 Rx #20 caps fenofibrate 160 mg tablet 160 mg PO DAILY #90 tabs 04/27/24 07/26/24 Rx metoclopramide HCl 5 mg tablet 5 mg PO TIDWM nausea and vomiting 06/07/24 07/26/24 History trazodone 100 mg tablet 200 mg (2 x 100 mg) PO HS #180 tabs 06/17/24 07/26/24 Rx cyclobenzaprine 10 mg tablet 10 mg PO Q8HR 14 days #42 tabs 06/22/24 07/26/24 Rx lorazepam 1 mg tablet 1 mg PO QHS PRN sleep #90 tabs 07/20/24 07/26/24 Rx Allergies Allergy/AdvReac Type Severity Reaction Status Date / Time adhesive tape Allergy Mild Rash Verified 06/30/24 11:59 [place] pepper (green pepper) Allergy Unknown Hives Verified 06/30/24 11:59 sucralose (From Splenda Allergy Migraine Verified 06/30/24 11:59 (sucralose)) Artificial Sweetners AdvReac Migraine Uncoded 06/30/24 11:59 Vital Signs Vital Signs - 24 hr 07/25/24 22:22 07/26/24 04:26 07/26/24 04:27 Temperature 36.1 C L Pulse Rate 110 H 100 Respiratory Rate 16 17 Blood Pressure 135/78 130/87 Pulse Oximetry 97 97 97 Oxygen Delivery Room Air 07/26/24 04:30 07/26/24 04:31 07/26/24 04:45 Temperature Pulse Rate Respiratory Rate Blood Pressure 121/78 Pulse Oximetry 95 93 96 Oxygen Delivery 07/26/24 05:00 07/26/24 05:06 07/26/24 05:30 Temperature Pulse Rate Respiratory Rate Blood Pressure 126/87 Pulse Oximetry 94 96 95 Oxygen Delivery 07/26/24 05:31 07/26/24 05:49 07/26/24 06:30 Temperature Pulse Rate 86 Respiratory Rate 17 Blood Pressure 141/94 H 148/94 H Pulse Oximetry 92 91 92 Oxygen Delivery 07/26/24 07:18 07/26/24 07:30 07/26/24 07:31 Temperature Pulse Rate Respiratory Rate Blood Pressure 135/86 Pulse Oximetry 93 90 99 Oxygen Delivery 07/26/24 07:45 07/26/24 08:00 07/26/24 08:01 Temperature Pulse Rate Respiratory Rate Blood Pressure 130/97 H Pulse Oximetry 95 98 95 Oxygen Delivery 07/26/24 08:15 07/26/24 08:30 07/26/24 08:31 Temperature Pulse Rate 88 88 89 Respiratory Rate Blood Pressure 140/88 Pulse Oximetry 94 90 95 Oxygen Delivery 07/26/24 09:04 Temperature Pulse Rate 88 Respiratory Rate 20 Blood Pressure 140/88 Pulse Oximetry 94 Oxygen Delivery Exam 2 Narrative: General: Pt is alert awake and in NAD Lungs/Chest: Trachea central Clear BS B/L, No crackles or wheezing. Port-A-Cath under skin on both side Cardiac: RRR. Normal S1 S2. No murmurs Circulation: Pedal pulses are intact and symmetrical. Abdomen: Normal bowel sounds.. Soft. NT. ND. Extremities: No clubbing, cyanosis or edema. Warm : Pettit in place Neurologic: Follows commands. Moves all 4 extremities PERRL Skin: No Rash Results Labs 07/26/24 04:16 07/26/24 09:04 Labs: Short CBC 07/26/24 Range/Units 04:16 WBC 9.1 (4.5-10.0) K/mm3 Hgb 12.2 (12.0-15.0) g/dL Hct 36.0 L (37.0-47.0) % Plt Count 325 (150-375) k/mm3 BMP 07/26/24 07/26/24 04:16 09:04 Sodium 134 L 135 L Potassium 4.4 3.3 L Chloride 101 106 Carbon Dioxide TNP TNP BUN 10 8 Creatinine 0.50 L 0.51 L Glucose 238 H 134 H Calcium 8.9 7.0 L Liver Function 07/26/24 Range/Units 04:16 Total Bilirubin 0.8 (0.2-1.3) mg/dL AST 21 (14-36) U/L ALT 19 (6-35) U/L Alkaline Phosphatase 122 (38-126) U/L Albumin 3.1 L (3.5-5.1) g/dL Urine 07/26/24 Range/Units 04:16 Urine Color Yellow (Yellow) Urine Appearance Cloudy H (Clear) Urine pH 5.0 (5.0-9.0) Ur Specific [place] 1.028 (1.001-1.035) Urine Protein Negative (Negative) mg/dL Urine Glucose (UA) 3+ H (Negative) mg/dL
--- OUTSIDE RECORDS SUMMARY | 2024-07-26 09:45 | XMS_ITS | Encounter Summary ---
Author Organization [facility] Address 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 Gender Identity Not on file Sexual Orientation [...] [facility] Heart and Vascular - [address] [place] [address] Marlys Mayer MD [address] [place] [address] documented as of this encounter Visit Diagnoses Not on filedocumented in this encounter Additional Health Concerns Infection Onset Date Last Indicated Resolved Time R/O GI Pathogen 09/19/2023 09/19/2023 09/21/2023 7 :33 AM CDT documented as of this encounter Care Teams Carton Filler Relationship Specialty Start Date End Date Guerrero Middleton PA-C PCP - General Physician [place] Cutter Operator 02/13/18 documented as of this encounter
--- OUTSIDE RECORDS SUMMARY | 2024-07-26 09:45 | XMS_ITS | Encounter Summary ---
Author Organization [facility] Address [address] [place] [address] Care Team Providers Care Pmp Project Manager Name Role Phone Guerrero Middleton PA-C Primary Care Provide r Reason for Visit * Reason Onset Date Comments OTHER 11/21/2021 Encounter Details Date Type Department Care Team (Late st Contact Info) Description 11/21/2021 Telephone [facility] Oncology [address] [place] [address] Nicole Rosas MD [address] 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 PRODUCTION TEAM ADVISOR Gender Identity Not on file Sexual Orientation [...] Heart and Vascular - [facility] [address] [place] [address] Marlys Mayer MD [address] [place] [address] documented as of this encounter Visit Diagnoses Not on filedocumented in this encounter Additional Health Concerns Infection Onset Date Last Indicated Resolved Time R/O GI Pathogen 09/19/2023 09/19/2023 09/21/2023 7 :33 AM CDT documented as of this encounter Care Teams Pmp Project Manager Relationship Specialty Start Date End Date Guerrero Middleton PA-C PCP - General Physician Extrusion Utility Worker 02/13/18 documented as of this encounter
--- OUTSIDE RECORDS SUMMARY | 2024-07-26 09:45 | XMS_ITS | Clinical Summary ---
Author Organization [facility] Address [address] [place] [address] Care Team Providers Care Steel Shot Header Operator Name Role Phone Mauri Jaime MD Primary Care Provider [phone] Guerrero Middleton PA Unavailable [phone] Allergies Active Allergy Reactions Criticality Noted Date [...] tablet TAKE 1 TABLET BY MOUTH EVERY ASH WORKER 022 Active fenofibrate (TRIGLIDE) 160 mg tablet [...] on file Legal Sex Female 5:05 AM KOSHER BUTCHER Gender Identity Not on file Sexual Orientation Not on file Obstetrics History Last Filed Vital Signs Vital Sign Reading Time Taken Comments Blood Pressure 101/62 06/05/2023 11:38 AM KOSHER BUTCHER Pulse 76 06/05/2023 11:38 AM KOSHER BUTCHER Temperature 36.4 C (97.5 F) 06/05/2023 10:35 AM KOSHER BUTCHER Respiratory Rate 22 06/05/2023 11:38 AM KOSHER BUTCHER Oxygen Saturation 94% 06/05/2023 11:38 AM KOSHER BUTCHER Inhaled Oxygen Concentration - - Weight 81.6 kg (180 lb) 06/05/2023 8:58 AM KOSHER BUTCHER Height 165.1 cm (5' 5 ) 06/05/2023 8:58 AM KOSHER BUTCHER Body Mass Index 29.95 06/05/2023 8:58 AM KOSHER BUTCHER Plan of Treatment Health Maintenance Due Date [...] 03/04/2021, Additional history exists Insurance [facility] [employer] [facility] [employer] [facility] [employer] Care Teams Steel Shot Header Operator Relationship Specialty Start Date End Date Mauri Jaime MD [address] [facility] [address] [place] [address] PCP - General Internal Medicine 05/28/23 Guerrero Middleton PA [address] [facility] [address] [place] [address] 05/28/23
--- OUTSIDE RECORDS SUMMARY | 2024-07-26 09:45 | XMS_ITS | Encounter Summary ---
Author Organization [facility] Address [address] [place] [address] Care Team Providers Care Torch Burner Name Role Phone Guerrero Middleton PA-C Primary Care Provide r Encounter Details Date Type Department Care Team (Late st Contact Info) Description 11/30/2021 Telephone [facility] Donor Services [address] [address] Nicole Rosas MD [address] [place] [address] Social History Tobacco Use Types [...] on file Legal Sex Female 6:07 AM WRAPPER SELECTOR Gender Identity Not on file Sexual Orientation [...] [facility] - [place] [address] [place] [address] Marlys Mayer MD [address] [place] [address] documented as of this encounter Visit Diagnoses Not on filedocumented in this encounter Additional Health Concerns Infection Onset Date Last Indicated Resolved Time R/O GI Pathogen 09/19/2023 09/19/2023 09/21/2023 7 :33 AM CDT documented as of this encounter Care Teams Torch Burner Relationship Specialty Start Date End Date Guerrero Middleton PA-C PCP - General Physician Leather Products Supervisor 02/13/18 documented as of this encounter
--- OUTSIDE RECORDS SUMMARY | 2024-07-26 09:45 | XMS_ITS | Encounter Summary ---
Author Organization [facility] Address 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 Gender Identity Not on file Sexual [...] [facility] [address] [place] [address] Marlys Mayer MD [address] [place] [address] documented as of this encounter Visit Diagnoses Not on filedocumented in this encounter Additional Health Concerns Infection Onset Date Last Indicated Resolved Time R/O GI Pathogen 09/19/2023 09/19/2023 09/21/2023 7 :33 AM CDT documented as of this encounter Care Teams Charge Account Identification Clerk Relationship Specialty Start Date End Date Guerrero Middleton PA-C PCP - General Physician Production Weigher 02/13/18 documented as of this encounter
--- OUTSIDE RECORDS SUMMARY | 2024-07-26 09:45 | XMS_ITS | Clinical Summary ---
Author Organization [facility] Address [address] [address] Phone Care Team Providers Care Ceo & Co Founder Name Role Phone Jose G Palmer MD Unavailable [phone] Guerrero Middleton Primary Care Provider Social History [...] to complete this topic Insurance Care Teams Ceo & Co Founder Relationship Specialty Start Date End Date Guerrero Middleton PAC [address] [place] [address] PCP - General Physician Wire Spinner 12/10/16 Jose G Palmer MD Consulting Physician Gastroenterology 12/10/16
--- OUTSIDE RECORDS SUMMARY | 2024-07-26 09:45 | XMS_ITS | Referral Summary ---
Author Organization [facility] Address [address] [place] [address] Care Team Providers Care Cyber Software Engineer Name Role Phone Mauri Jaime MD Primary Care Provider [phone] Guerrero Middleton PA Unavailable [phone] Allergies Active Allergy Reactions Criticality Noted Date [...] tablet TAKE 1 TABLET BY MOUTH EVERY MANAGER PERSONNEL SELECTION 022 Active fenofibrate (TRIGLIDE) 160 mg tablet [...] on file Legal Sex Female 5:05 AM DOCKET SPECIALIST Gender Identity Not on file Sexual Orientation Not on file Last Filed Vital Signs Vital Sign Reading Time Taken Comments Blood Pressure 101/62 06/05/2023 11:38 AM DOCKET SPECIALIST Pulse 76 06/05/2023 11:38 AM DOCKET SPECIALIST Temperature 36.4 C (97.5 F) 06/05/2023 10:35 AM DOCKET SPECIALIST Respiratory Rate 22 06/05/2023 11:38 AM DOCKET SPECIALIST Oxygen Saturation 94% 06/05/2023 11:38 AM DOCKET SPECIALIST Inhaled Oxygen Concentration - - Weight 81.6 kg (180 lb) 06/05/2023 8:58 AM DOCKET SPECIALIST Height 165.1 cm (5' 5 ) 06/05/2023 8:58 AM DOCKET SPECIALIST Body Mass Index 29.95 06/05/2023 8:58 AM DOCKET SPECIALIST Plan of Treatment Not on file Insurance [facility] [employer] [facility] [employer] [facility] [employer] [facility] [employer] Care Teams Cyber Software Engineer Relationship Specialty Start Date End Date Mauri Jaime MD [address] [place] [address] PCP - General Internal Medicine 05/28/23 Guerrero Middleton PA [address] [place] [address] 05/28/23
--- OUTSIDE RECORDS SUMMARY | 2024-07-26 09:45 | XMS_ITS | Encounter Summary ---
Author Organization [facility] Address [address] [place] [address] Care Team Providers Care Rn Discharge Name Role Phone Guerrero Middleton PA-C Primary Care Provide r Encounter Details Date Type Department Care Team (Late st Contact Info) Description 10/13/2021 Telephone [facility] Oncology [address] [place] [address] Phoenix Riddle MD [address] [facility] [place] [address] Social History Tobacco Use Types [...] on file Legal Sex Female 6:07 AM CORRECTIONAL PROGRAM SPECIALIST Gender Identity Not on file Sexual [...] and Vascular - [address] [place] [address] Marlys Mayer MD [address] [place] [address] documented as of this encounter Visit Diagnoses Not on filedocumented in this encounter Additional Health Concerns Infection Onset Date Last Indicated Resolved Time R/O GI Pathogen 09/19/2023 09/19/2023 09/21/2023 7 :33 AM CDT documented as of this encounter Care Teams Rn Discharge Relationship Specialty Start Date End Date Guerrero Middleton PA-C PCP - General Physician Line Assembler 02/13/18 documented as of this encounter
--- OUTSIDE RECORDS SUMMARY | 2024-07-26 09:45 | XMS_ITS | Encounter Summary ---
Author Organization [facility] Address 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 Gender Identity Not on file Sexual [...] and Vascular - [place] [address] [place] [address] Marlys Mayer MD [address] [place] [address] documented as of this encounter Visit Diagnoses Not on filedocumented in this encounter Additional Health Concerns Infection Onset Date Last Indicated Resolved Time R/O GI Pathogen 09/19/2023 09/19/2023 09/21/2023 7 :33 AM CDT documented as of this encounter Care Teams Director Of Manufacturing Operations Relationship Specialty Start Date End Date Guerrero Middleton PA-C PCP - General Physician Head Up Operator 02/13/18 documented as of this encounter
--- OUTSIDE RECORDS SUMMARY | 2024-07-26 09:45 | XMS_ITS | Encounter Summary ---
Author Organization [facility] Address 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 Gender Identity Not on file Sexual [...] [facility] [address] [place] [address] Marlys Mayer MD [address] [place] [address] documented as of this encounter Visit Diagnoses Not on filedocumented in this encounter Additional Health Concerns Infection Onset Date Last Indicated Resolved Time R/O GI Pathogen 09/19/2023 09/19/2023 09/21/2023 7 :33 AM CDT documented as of this encounter Care Teams Embossograph Operator Relationship Specialty Start Date End Date Guerrero Middleton PA-C PCP - General Physician Ornamental Metal Worker 02/13/18 documented as of this encounter
--- OUTSIDE RECORDS SUMMARY | 2024-07-26 09:45 | XMS_ITS | Encounter Summary ---
Author Organization [facility] Address [address] [place] [address] Care Team Providers Care Inspector Machine Cut Glass Name Role Phone Guerrero Middleton PA-C Primary Care Provide r Reason for Visit * Reason Onset Date Comments Bard Port flush 11/16/2021 Attempted to patel ch pt due to needing bard port flushes Encounter Details Date Type Department Care Team (Late st Contact Info) Description 11/16/2021 Telephone [facility] Oncology [address] [place] [address] Nicole Rosas MD [address] [place] [address] Bard Port flush (Attempted to [...] on file Legal Sex Female 6:07 AM CANINE ENFORCEMENT OFFICER Gender Identity Not on file Sexual [...] [facility] Heart and Vascular - [facility] [address] [place] [address] Marlys Mayer MD [address] [place] [address] documented as of this encounter Visit Diagnoses Not on filedocumented in this encounter Additional Health Concerns Infection Onset Date Last Indicated Resolved Time R/O GI Pathogen 09/19/2023 09/19/2023 09/21/2023 7 :33 AM CDT documented as of this encounter Care Teams Inspector Machine Cut Glass Relationship Specialty Start Date End Date Guerrero Middleton PA-C PCP - General Physician Channel Development Director 02/13/18 documented as of this encounter
--- OUTSIDE RECORDS SUMMARY | 2024-07-26 09:45 | XMS_ITS | Clinical Summary ---
Author Organization [facility] Address [address] [place] [address] Phone Care Team Providers Care Steffen House Supervisor Name Role Phone Guerrero Middleton PA-C [...] 48h post LHC 4 Active Blood-Glucose Sensor ([employer] G7 Sensor) Device 4 Active buPROPion HCL [...] be different from the original. Marlys Mayer MD--Director Trust ([facility] @ ) Problem [...] Data STL ABSTRACTION Provider, Abstract 06/02/2024 Abstract [facility] V[facility] At [address] [place] [address] Marlys Mayer MD 06/02/2024 Telephone [facility] V[facility] At [address] [place] [address] Marlys Mayer MD Medical Records 05/27/2024 External [...] on file Legal Sex Female 6:07 AM CRYSTAL FINISHER Gender Identity Not on file Sexual Orientation Not on file Occupation Industry Job Start Date Job End Date Not on file Not on file Not on file Not on file Last Filed Vital Signs Vital Sign Reading Time Taken Comments Blood Pressure 112/70 04/20/2024 3:12 PM CRYSTAL FINISHER Pulse 103 04/20/2024 3:12 PM CRYSTAL FINISHER Temperature 36.5 C (97.7 F) 11/29/2023 10:58 AM CDT Respiratory Rate 21 11/29/2023 6:15 PM CDT Oxygen Saturation 96% 04/20/2024 3:12 PM CRYSTAL FINISHER Inhaled Oxygen Concentration - - Weight 86.6 kg (191 lb) 04/20/2024 3:12 PM CRYSTAL FINISHER Height 165.1 cm (5' 5 ) 04/20/2024 3:12 PM CRYSTAL FINISHER Body Mass Index 31.78 04/20/2024 3:12 PM CRYSTAL FINISHER Plan of Treatment Upcoming Encounters Date Type Department Care Team (Late st Contact Info) Description 09/14/2024 3:00 PM CDT Office Visit [facility] Heart and Vascular - [place] [address] [place] [address] Marlys Mayer MD [address] [facility] [address] [place], [place] [id number] Health Maintenance Due Date Last Done Comments [...] history exists Medical Devices Implanted Type Area And Taxi Instructor Bus Trolley Device Identifier Shelf Expiration Date Model / Serial / Lot Cath Hemodlys Glidespath 23cm [id number] Implanted:Qty : 1 on 04/10/2018 by Kayla Sheffield MD Catheter CR BARD- [employer] [id number] 08/27/2019 [id number] / / [id number] Description:14.5fr x 23cm; R IJ Port-10/29/2018 Implanted:Qty : 2 on 10/29/2018 by Laverne Willoughby MD Explanted:Qty : 1 on 02/18/2019 by Michael Powell MD Port Right: Chest Wall CR BARD- ACCESS SYS 07/28/2019 / / [id number] Description:two 9.6fr fower flow apheresis ports placed by Dr. Willoughby Port- 0 Implanted:Qty : 1 on 05/11/2019 by Alfa Forrest MD Port Left: Chest Wall CR BARD- ACCESS SYS 08/26/2020 / / [id number] Stent Synergy Xd 4.0x12mm Evrlms Elut [id number] - [id number] Implanted:Qty : 1 on 11/29/2023 by Miguel Lewis MD at [facility] Stent N/A: Coronary [email or web address] GRISELDA [id number] 03/19/2024 [id number] / / [id number] Procedures Procedure Name Priority Date/Time Associated Diagnosis Comments LDL CHOLESTEROL, DIRECT Stat 09/19/2023 12:59 AM CDT HEMOGLOBIN A1C Routine 09/18/2023 10:18 PM CDT from Last 3 Months or Most Recently Relevant to Health Maintenance Results * LDL CHOLESTEROL, DIRECT (09/19/2023 12:59 AM CDT) LDL CHOLESTEROL, DIRECT 47 <100 mg/dL 09/19/2023 5:52 AM CDT [facility] Blood Venipuncture / Unknown 09/19/2023 12:59 AM CDT 09/19/2023 1:09 AM CDT [facility] - 09/19/2023 5:52 AM CDT [...] ORDERABLES Fin al Result Performing Organization Address [facility]/ZIP Co de Phone Number [facility]# [phone] [address] [place] [address] * (ABNORMAL) HEMOGLOBIN A1C (09/18/2023 10:18 PM CDT) HEMOGLOBIN A1C 9.7(H) <5.7 % 09/19/2023 10:59 AM CDT [facility] EST. AVG GLUCOSE, A1C 232 mg/dL 09/19/2023 10:59 AM CDT [facility] Blood Venipuncture / Unknown 09/18/2023 10:18 PM CDT 09/18/2023 10:26 PM CDT [facility] LABORATORY [facility] - 09/19/2023 10:59 AM CDT HGB A1C INTERPRETATION NORMAL: <5.7% PRE-DIABETES: 5.7 - 6.4% DIABETES: 6.5% OR GREATER Herlinda Mederos DO CHEMISTRY ORDERABLES Final Resul t Performing Organization Address [facility]/ZIP Co de Phone Number [facility] [employer]# [id number] [address] [place] [address] from Last 3 Months or Most Recently Relevant to Health Maintenance Insurance AETNA PPO MCR RX AETNA Medicare Part D RX MEDRANO PLANS (INTERNAL) [facility] RX MEDRANO PLANS (INTERNAL) [facility] AETNA PPO MCR Advance Directives For more information, please contact: [phone] * Full Code (Latest Code Status on [...] 12:11 AM 01/02/2021 4:26 PM Care Teams Steffen House Supervisor Relationship Specialty Start Date End Date Guerrero Middleton PA-C PCP - General Physician Drug Room Operator 02/13/18
--- OUTSIDE RECORDS SUMMARY | 2024-07-26 09:45 | XMS_ITS | Encounter Summary ---
Author Organization [facility] Address [address] [place] [address] Care Team Providers Care Sales Development Director Name Role Phone Guerrero Middleton PA-C Primary Care Provide r Reason for Visit * Reason Onset Date Comments petr rubin 09/13/2021 Encounter Details Date Type Department Care Team (Late st Contact Info) Description 09/13/2021 Telephone Donor Services [address] [address] Gloria Tristan, RN petr [facility] Social History Tobacco Use Types [...] often do you attend chur ch or worship services? Never 08/21/2018 Do you [...] on file Legal Sex Female 6:07 AM AUDIO DIRECTOR Gender Identity Not on file Sexual [...] [facility] - [facility] [address] [place] [address] Marlys Mayer MD [address] [place] [address] documented as of this encounter Visit Diagnoses Not on filedocumented in this encounter Additional Health Concerns Infection Onset Date Last Indicated Resolved Time R/O GI Pathogen 09/19/2023 09/19/2023 09/21/2023 7 :33 AM CDT documented as of this encounter Care Teams Sales Development Director Relationship Specialty Start Date End Date Guerrero Middleton PA-C PCP - General Physician Residential Property Tax Appraiser 02/13/18 documented as of this encounter
[2024-07-26] MEDS: PANTOPRAZOLE SODIUM IV 40 MG VIAL IV PUSH (10:03)
[2024-07-26] MEDS: HYDROmorphone HCL INJ (*CRX) 1 MG/ML SYR IV PUSH ×4 (10:03→23:38)
[2024-07-26] MEDS: TICAGRELOR 90 MG TABLET PO ×2 (10:04→20:19)
[2024-07-26] MEDS: ATORVASTATIN 40 MG TABLET 80 MG PO (10:04)
[2024-07-26] MEDS: ASPIRIN 81 MG ENTERIC TABLET PO (10:04)
[2024-07-26] MEDS: FENOFIBRATE 160 MG TABLET PO (10:05)
[2024-07-26] MEDS: POTASSIUM CHLORIDE INJ 40 MEQ in SODIUM CHLORIDE 0.9% IV 500 ML 130 MEQ IVPB (10:08)
[2024-07-26] MEDS: INSULIN HUMAN REGULAR (*BKC) 100 UNITS in SODIUM CHLORIDE 0.9% IV 99 ML 8.5 UNITS IV CONT (10:14)
[2024-07-26] MEDS: ENOXAPARIN 40 MG/0.4 ML SYRINGE SUB-Q (10:20)
[2024-07-26 10:24] LABS: Glucose Point of Care 115 mg/dl (65-105)
[2024-07-26 10:24] LABS: Glucose Point of Care 125 mg/dl (65-105)
[2024-07-26] MEDS: metFORMIN HCL 500 MG TABLET 1000 MG PO ×2 (10:33→17:03)
[2024-07-26] MEDS: LEVOTHYROXINE SODIUM 100 MCG TABLET 200 MCG PO (10:34)
[2024-07-26] MEDS: METOCLOPRAMIDE HCL 5 MG TABLET PO ×3 (10:35→20:20)
[2024-07-26] MEDS: diphenhydrAMINE HCl INJ 50 MG/ML VIAL 25 MG IV PUSH ×2 (10:55→20:20)
[2024-07-26 11:21] LABS: Glucose Point of Care 88 mg/dl (65-105)
[2024-07-26] MEDS: KCL 20 MEQ/D5/0.45% SOD CHL 1,000 ML 200 ML IV CONT ×2 (11:52→17:01)
[2024-07-26 12:12] LABS: Glucose Point of Care 67 mg/dl (65-105)
[2024-07-26] MEDS: DEXTROSE 50% 25 GM/50 ML SYRINGE IV PUSH (12:13)
[2024-07-26 12:17] LABS: MRSA (PCR) NOT DETECTED (NOT DETECTE)
[2024-07-26 12:24] LABS: Blood Urea Nitrogen 6 mg/dL (7-17); Chloride 108 mmol/L (98-107); Estimated CRCL calculation 122 ml/min; Estimated Glomerular Filt Rate > 60; Potassium 3.4 mmol/L (3.4-5.0); Sodium 135 mmol/L (137-145)
[2024-07-26 12:28] LABS: Glucose 64 mg/dL (65-110)
[2024-07-26 12:50] LABS: Glucose Point of Care 148 mg/dl (65-105)
[2024-07-26 13:31] LABS: Glucose Point of Care 142 mg/dl (65-105)
[2024-07-26] MEDS: SODIUM CHLORIDE 0.9% IV 1,000 ML 999 ML IV CONT (13:40)
[2024-07-26] MEDS: HEPARIN SODIUM, PORCINE 10,000 UNITS/10 ML VIAL 1000 UNITS XX (13:40)
[2024-07-26] MEDS: ALBUMIN HUMAN 5% 999 GM XX (13:40)
[2024-07-26] MEDS: CALCIUM GLUC 2,000 MG/NS 100ML 2,000 MG/100 ML BAG 200 MG IVPB (13:40)
[2024-07-26 14:28] LABS: Free T4 Free Thyroxine Reflex 0.11 ng/dL (0.78-2.19)
--- NOTE | 2024-07-26 14:30 | P.CONNP_ITS ---
Assessment and Plan Assessment and plan (1) Hypertriglyceridemia: Code(s): E78.1 - Pure hyperglyceridemia Status: Inactive Assessment and Plan: * suspected based on admission history * already on insulin gtt * last session of plasmapheresis for this issue was on her admission about in May 2024 * appears symptomatic with regard to this issue * plasmapheresis today * goal of plasmapheresis therapy would be to get triglyceride level less than 1000 * possible repeat session of plasmapheresis tomorrow depending on triglyceride level in AM * continue ongoing medical therapy (2) Abdominal pain: Qualifiers: Abdominal location: right upper quadrant Qualified Code(s): R10.11 - Right upper quadrant pain Code(s): R10.9 - Unspecified abdominal pain Status: Acute Assessment and Plan: * acute on chronic * presumably due known history of chronic pancreatitis and hypertriglyceridemia * PRN pain medications and antiemetics (3) Nausea & vomiting: Code(s): R11.2 - Nausea with vomiting, unspecified Status: Acute Assessment and Plan: * presumably related to pancreatitis and hypertriglyceridemia * continue PRN anti-emetics (4) Chronic pancreatitis: Qualifiers: Pancreatitis type: unspecified pancreatitis type Qualified Code(s): K 86.1 - Other chronic pancreatitis Code(s): K86.1 - Other chronic pancreatitis Status: Acute Assessment and Plan: * known history * episodes appear to be secondary to episodes of hypertriglyceridemia * continue current therapy (5) Insulin dependent diabetes mellitus: Status: Chronic Assessment and Plan: * on insulin gtt * follow accu-cheks I will continue to follow the patient with you while she remains hospitalized and make further recommendations as deemed necessary. Thank you for allowing me to participate in the care of this patient. L History of Present Illness Reason for Consult Consult date: 07/26/24 Reason for consult: Other (Plasmapheresis) Chief Complaint Chief complaint: Pancreatitis History of Present Illness Narrative: The patient is a 48-year-old female with an extensive past medical history as outlined below who presented to [facility] Emergency Room early this morning with complaints of abdominal pain. She states that her abdominal pain started about 3 days ago and has progressively worsened to the point where the pain seems to be radiating from her abdomen to her back. She rates the pain as an 8/10 and describes it as a crampy sensation. Associated symptoms included nausea as well as vomiting although she also has had some intermittent constipation and diarrhea. Furthermore, due to her nausea and vomiting, she has not been eating and drinking very much either. She denies any other symptoms with regard to fevers, chills, hematuria, dysuria, melena, hematochezia, or shortness of breath, or chest pain. Workup and evaluation emergency room demonstrated the patient be hemodynamically stable but in mild distress secondary to abdominal pain. Routine blood tests were within her normal range but her triglyceride level as well as her lipase level were unable to be calculated due to the blood sample being grossly lipemic. Given her known history of hypertriglyceridemia and associated pancreatitis, she was initiated on IV fluids with dextrose along with an insulin infusion. she received pain medications for abdominal pain and was subsequently admitted to the intensive care unit for further evaluation and therapy. Renal consultation was requested for plasmapheresis for treatment of her hypertriglyceridemia. The patient is quite familiar to me as I have seen on multiple hospitalizations here at [facility] whenever she requires plasmapheresis. The patient usually receives plasmapheresis during her many hospitalizations in the past for her high triglyceride levels both here at [facility] and at [facility]. She has a power port line in place that has been used for this purpose. There have been some occasions where she has responded to more conservative therapy with regard to an just an insulin drip and oral medications alone as well. However, as noted on this admission, her triglyceride level Was unable to be determined due to her grossly lipemic blood sample. Currently, at the time my visit, she is tolerating plasmapheresis and appears in no apparent distress (seen on plasmapheresis at 2:15PM). Review of Systems 2 Review of Systems: As per HPI. 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 Allergic rhinitis Insulin dependent diabetes mellitus Chronic pancreatitis (~09/02/23) Port-A-Cath in place Lipoprotein deficiency Hyperlipemia Headache Surgical History Surgical History History of wisdom tooth extraction History of tubal ligation History of partial hysterectomy History of endometrial ablation History of appendectomy History of loop electrical excision procedure (LEEP) History of exploratory laparotomy History of dilatation and curettage History of conization of cervix History of tonsillectomy Family History Family History Father Alcohol abuse Hypercholesteremia Hypertension Family history of alcoholism Family history of cardiovascular disease Diabetes mellitus Mother Hypercholesteremia Hypothyroid Cerebrovascular accident Family history of cardiovascular disease Diabetes mellitus Grandparent Skin cancer Colon cancer Heart disease Hypothyroid Cerebrovascular accident Sibling Autoimmune disorder Hypothyroid Kidney disorder Hypertension Diabetes mellitus Other Family history of kidney disease Social History Social History Social History: She smokes up to 1ppd since age 16yo. No alcohol or drug use. She has dog and a cat at home. Surrogate medical decision maker: José Miguel Bryansergio, spouse. Code status: Full Smoking packs per day: 0.5 Smoking cigarettes per day: 10.0 Years smoked: 32 Smoking pack-years: 16.00 Smoking status: Current every day smoker Tobacco type: cigarettes Second hand tobacco smoke exposure: No Alcohol intake: never Drinks per week: 0 Substance use: never Substance use type: does not use Do You Feel Safe in your Home?: Yes Lack of Transportation: No Lack of Food: Never True Current Housing: I Have Housing Concerned About Future Housing: No Difficulty Paying Gas/Electric Bills: No Difficulty Paying for Meds: No Currently Unemployed: No Education: Decline to Answer Difficulty w/ Childcare or Family Care: No Living arrangements: with family Occupation/Education: retired 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 Gender identity (if verbalized by the patient): Female Spiritual care concerns: No Meds Home Medications and Allergies Home Medications ?Medication ?Instructions ?Recorded ?Confirmed ?Type metformin 500 mg tablet 1,000 mg (2 x 500 mg) PO BID #180 12/19/22 07/26/24 Rx tabs levothyroxine 200 mcg tablet 200 mcg PO DAILY 07/21/23 07/26/24 History otmlfq-smjapoht-[id number] 2 cap PO TIDWMEAL 07/22/23 07/26/24 History 36,000-114,000-180,000 unit capsule,delay rel (Creon) aspirin 81 mg tablet,delayed 81 mg PO QAM #30 tabs 07/25/23 07/26/24 Rx release pantoprazole 40 mg tablet,delayed 40 mg PO BID #30 tabs 08/22/23 07/26/24 Rx release (Protonix) citalopram 40 mg tablet 40 mg PO DAILY 08/31/23 07/26/24 History ticagrelor 90 mg tablet (Brilinta) 90 mg PO BID #180 tabs 10/03/23 07/26/24 Rx bupropion HCl 150 mg tablet,12 hr 150 mg PO HS 10/09/23 07/26/24 History sustained-release pen needle, diabetic 32 gauge x #1,200 ea 11/14/23 07/26/24 Rx 5/32 (BD Ultra-Fine Diandra Pen Needle) insulin syringe-needle U-100 0.3 #100 ea 11/29/23 07/26/24 Rx mL 31 gauge x 5/16 (BD Insulin Syringe Ultra-Fine) atorvastatin 80 mg tablet 80 mg PO HS #90 tabs 02/12/24 07/26/24 Rx ondansetron 4 mg disintegrating 4 mg PO Q8H PRN nausea and 02/27/24 07/26/24 Rx tablet vomiting #10 tabs insulin aspart U-100 100 unit/mL See Rx Instructions .Route .COMPLEX 03/31/24 07/26/24 History subcutaneous solution (Novolog U-100 Insulin aspart) metoprolol succinate 25 mg 12.5 mg PO DAILY 03/31/24 07/26/24 History tablet,extended release 24 hr docusate sodium 100 mg capsule 100 mg PO Q12HR PRN constipation 04/08/24 07/26/24 Rx #20 caps fenofibrate 160 mg tablet 160 mg PO DAILY #90 tabs 04/27/24 07/26/24 Rx metoclopramide HCl 5 mg tablet 5 mg PO TIDWM nausea and vomiting 06/07/24 07/26/24 History trazodone 100 mg tablet 200 mg (2 x 100 mg) PO HS #180 tabs 06/17/24 07/26/24 Rx cyclobenzaprine 10 mg tablet 10 mg PO Q8HR 14 days #42 tabs 06/22/24 07/26/24 Rx lorazepam 1 mg tablet 1 mg PO QHS PRN sleep #90 tabs 07/20/24 07/26/24 Rx Allergies Allergy/AdvReac Type Severity Reaction Status Date / Time adhesive tape Allergy Mild Rash Verified 06/30/24 11:59 [place] pepper (green pepper) Allergy Unknown Hives Verified 06/30/24 11:59 sucralose (From Splenda Allergy Migraine Verified 06/30/24 11:59 (sucralose)) Artificial Sweetners AdvReac Migraine Uncoded 06/30/24 11:59 Vital Signs Vital Signs Temp Pulse Resp BP Pulse Ox O2 Del Method O2 Flow Rate 07/26/24 14:00 97.4 F L 85 14 126/81 99 07/26/24 14:00 97.7 F 83 15 126/81 07/26/24 14:00 84 07/26/24 13:40 97.7 F 84 15 127/84 07/26/24 13:40 98 07/26/24 13:28 98 Nasal Cannula 1 07/26/24 12:00 99 Nasal Cannula 2 07/26/24 12:00 87 07/26/24 11:48 98.7 F 85 16 129/82 97 07/26/24 10:45 12 86 L Nasal Cannula 2 07/26/24 10:00 86 12 122/86 97 07/26/24 10:00 85 07/26/24 09:19 97.4 F L 90 17 134/90 98 07/26/24 09:04 88 20 140/88 94 07/26/24 08:31 89 140/88 95 07/26/24 08:30 88 90 07/26/24 08:15 88 94 07/26/24 08:01 130/97 H 95 07/26/24 08:00 98 07/26/24 07:45 95 07/26/24 07:31 135/86 99 07/26/24 07:30 90 07/26/24 07:18 93 07/26/24 06:30 86 17 148/94 H 92 07/26/24 05:49 91 07/26/24 05:31 141/94 H 92 07/26/24 05:30 95 07/26/24 05:06 126/87 96 07/26/24 05:00 94 07/26/24 04:45 96 07/26/24 04:31 121/78 93 07/26/24 04:30 95 07/26/24 04:27 97 07/26/24 04:26 100 17 130/87 97 07/25/24 22:22 97.0 F L 110 H 16 135/78 97 Room Air Exam 2 Narrative: GENERAL APPEARANCE: mildly ill appearing female in no acute distress HEENT: normocephalic, atraumatic, normal conjunctiva and sclera, nares patient NECK: no lymphadenopathy, thyromegaly, or JVD MOUTH: dry lips, teeth, and gums CARDIOVASCULAR: RRR, normal S1 and S2, no rub RESPIRATORY: clear to auscultation bilaterally ABDOMEN: soft but with TTP in epigastric area, positive bowel sounds present EXTREMITIES: no evidence of cyanosis, clubbing, or edema NEUROLOGICAL: alert and oriented x 3; CN II - XII intact bilaterally; no focal deficits noted Results Lab Results 07/26/24 04:16 07/26/24 11:43 Lab results: Most recent lab results Calcium 7.0 mg/dL (8.4-10.2) L 07/26/24 11:43
[2024-07-26] MEDS: ALTEPLASE 2 MG VIAL (CATHFLO) IV PUSH (15:10)
[2024-07-26 16:07] LABS: Glucose Point of Care 186 mg/dl (65-105)
--- NOTE | 2024-07-26 16:27 | PC.NURSE ---
NAME:Casandra Jones :1975 Location:[facility] DX:Hypertriglyceridemia Procedure/Treatment:TPE#1(Daily TPE until triglyceride level is below 600) Doctor:Dr.Sriraj Kaminski Pt. Chart/Labs/Medications/Notes and orders reviewed:Yes Today's Procedure Confirmed:Yes, with Genoveva(EQUIPMENT TECH) Access: Right & Left Chest PFP X 2 with tips in the SVC and Right [facility] TIMES Start:1540 END:1515 Delays:Yes, had to use Alteplase 2 mg IVP in apheresis port X 2, which each port had medication indwell for 30 minutes V/S Pre, During and Post- were stable Tolerance:Patient tolerated apheresis with no adverse effects or events. Effluent:Very lipid white plasma in collect bag. Next catheter maintenance for patient's apheresis port X 2 is on 08/25/2024 at 0930 Total fluid Processed:7028 ml Total fluid removed: 3631 ml Total fluid replaced: 3760 ml Total fluid balance: +129 mml Hospital RN:Genoveva(EQUIPMENT TECH) CTA what job titles mean:Lara OLGUIN
[2024-07-26 17:03] LABS: Glucose Point of Care 205 mg/dl (65-105)
[2024-07-26 17:45] LABS: Blood Urea Nitrogen 5 mg/dL (7-17); Calcium 6.4 mg/dL (8.4-10.2); Chloride 111 mmol/L (98-107); Estimated CRCL calculation 124 ml/min; Estimated Glomerular Filt Rate > 60; Glucose 172 mg/dL (65-110); Potassium 4.5 mmol/L (3.4-5.0); Sodium 136 mmol/L (137-145)
[2024-07-26] MEDS: CALCIUM GLUC 2,000 MG/NS 100ML 2,000 MG/100 ML BAG 100 MG IVPB (18:17)
[2024-07-26 18:23] LABS: Glucose Point of Care 228 mg/dl (65-105)
[2024-07-26 19:29] LABS: Glucose Point of Care 178 mg/dl (65-105)
[2024-07-26 20:08] LABS: Glucose Point of Care 180 mg/dl (65-105)
[2024-07-26 21:06] LABS: Glucose Point of Care 173 mg/dl (65-105)
[2024-07-26 21:19] LABS: Anion Gap 10 mmol/L (4-12); Blood Urea Nitrogen 3 mg/dL (7-17); Calcium 7.9 mg/dL (8.4-10.2); Carbon Dioxide 17 mmol/L (22-30); Chloride 108 mmol/L (98-107); Estimated CRCL calculation 133 ml/min; Estimated Glomerular Filt Rate > 60; Glucose 164 mg/dL (65-110); Potassium 4.3 mmol/L (3.4-5.0); Sodium 135 mmol/L (137-145)
[2024-07-26 22:04] LABS: Glucose Point of Care 161 mg/dl (65-105)
[2024-07-26 23:02] LABS: Glucose Point of Care 164 mg/dl (65-105)
[2024-07-27] VITALS (23 sets, daily range): BP systolic 120–155; BP diastolic 75–101; PULSE 73–103; RESP 12–28; TEMP 36.5–37; O2SAT 91–100; BMI 31.7
[2024-07-27 00:02] LABS: Glucose Point of Care 146 mg/dl (65-105)
[2024-07-27 01:07] LABS: Anion Gap 10 mmol/L (4-12); Blood Urea Nitrogen 3 mg/dL (7-17); Calcium 8.2 mg/dL (8.4-10.2); Carbon Dioxide 18 mmol/L (22-30); Chloride 108 mmol/L (98-107); Estimated CRCL calculation 138 ml/min; Estimated Glomerular Filt Rate > 60; Glucose 143 mg/dL (65-110); Potassium 4.4 mmol/L (3.4-5.0); Sodium 136 mmol/L (137-145)
[2024-07-27 01:21] LABS: Glucose Point of Care 149 mg/dl (65-105)
[2024-07-27 01:58] LABS: Glucose Point of Care 144 mg/dl (65-105)
[2024-07-27] MEDS: diphenhydrAMINE HCl INJ 50 MG/ML VIAL 25 MG IV PUSH ×5 (02:44→20:54)
[2024-07-27] MEDS: HYDROmorphone HCL INJ (*CRX) 1 MG/ML SYR IV PUSH ×7 (02:44→23:50)
[2024-07-27 02:57] LABS: Glucose Point of Care 149 mg/dl (65-105)
[2024-07-27 04:03] LABS: Glucose Point of Care 145 mg/dl (65-105)
[2024-07-27 04:59] LABS: Glucose Point of Care 151 mg/dl (65-105)
[2024-07-27] MEDS: METOCLOPRAMIDE HCL 5 MG TABLET PO ×3 (05:59→20:03)
[2024-07-27] MEDS: LEVOTHYROXINE SODIUM 100 MCG TABLET 200 MCG PO (05:59)
[2024-07-27 06:00] LABS: Glucose Point of Care 142 mg/dl (65-105)
[2024-07-27] MEDS: KCL 20 MEQ/D5/0.45% SOD CHL 1,000 ML 150 ML IV CONT ×3 (06:03→19:22)
[2024-07-27 06:34] LABS: Hematocrit 34.6 % (37.0-47.0); Hemoglobin 11.2 g/dL (12.0-15.0); Mean Corpuscular HGB Conc 32.4 g/dl (32-36); Mean Corpuscular Hemoglobin 29.5 pg (26-34); Mean Corpuscular Volume 91.1 fl (80-100); Mean Platelet Volume 9.3 fl (7.4-10.4); Platelet Count Result 220 k/mm3 (150-375); Red Cell Distribution Width 15.7 % (11.5-14.5); White Blood Count 6.6 K/mm3 (4.5-10.0)
[2024-07-27 06:53] LABS: Glucose Point of Care 133 mg/dl (65-105)
[2024-07-27] MEDS: TICAGRELOR 90 MG TABLET PO ×2 (08:02→20:03)
[2024-07-27] MEDS: FENOFIBRATE 160 MG TABLET PO (08:02)
[2024-07-27] MEDS: ASPIRIN 81 MG ENTERIC TABLET PO (08:02)
[2024-07-27] MEDS: LIPASE/AMYLASE/PROTEASE 12,000 UNITS CAP 2 CAP PO ×2 (08:02→12:08)
[2024-07-27] MEDS: ENOXAPARIN 40 MG/0.4 ML SYRINGE SUB-Q (08:03)
[2024-07-27] MEDS: ATORVASTATIN 40 MG TABLET 80 MG PO (08:03)
[2024-07-27] MEDS: metFORMIN HCL 500 MG TABLET 1000 MG PO (08:03)
[2024-07-27] MEDS: PANTOPRAZOLE SODIUM IV 40 MG VIAL IV PUSH (08:03)
[2024-07-27 08:13] LABS: Glucose Point of Care 135 mg/dl (65-105)
[2024-07-27 09:15] LABS: Glucose Point of Care 168 mg/dl (65-105)
[2024-07-27] MEDS: ONDANSETRON INJ 4 MG/2 ML VIAL IV PUSH (09:15)
--- NOTE | 2024-07-27 09:27 | P.PNINT_ITS ---
Progress Note: A&P Assessment and Plan (1) Abdominal pain: Code(s): R10.9 - Unspecified abdominal pain Status: Acute Assessment and Plan: patient has chronic abdominal pain with intermittent exacerbation which is likely secondary to hypertriglyceridemia and chronic pancreatitis. In the past patient has been admitted the abdominal pain with normal lipase level. Lipase level was unable to be calculated at this time due to grossly lipemic blood. 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 Check triglyceride level after today's session replace low potassium p.r.n. Dilaudid for pain control Clear liquid diet advance as tolerated (2) CAD (coronary artery disease): Code(s): I25.10 - Atherosclerotic heart disease of [place] coronary artery without angina pectoris Status: Acute Assessment and Plan: continue aspirin Brilinta statin (3) Hypertriglyceridemia: Code(s): E78.1 - Pure hyperglyceridemia Status: Chronic Assessment and Plan: see above (4) Type 2 diabetes mellitus: Qualifiers: Diabetes mellitus fare collector insulin use: with usp use Diabetes mellitus complication status: without complication Qualified Code(s): E11.9 - Type 2 diabetes mellitus without complications; Z79.4 - station engineer 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 continue metformin and regular (5) Nausea & vomiting: Code(s): R11.2 - Nausea with vomiting, unspecified Status: Acute Assessment and Plan: P.r.n. Zofran (6) GERD (gastroesophageal reflux disease): Qualifiers: Esophagitis presence: esophagitis presence not specified Qualified Code(s): K21.9 - Gastro-esophageal reflux disease without esophagitis Code(s): K21.9 - Gastro-esophageal reflux disease without esophagitis Status: Acute Assessment and Plan: continue PPI (7) Chronic pancreatitis: Qualifiers: Pancreatitis type: unspecified pancreatitis type Qualified Code(s): K86.1 - Other chronic pancreatitis Code(s): K86.1 - Other chronic pancreatitis Status: Acute Assessment and Plan: resume Creon pills once a abdominal pain is better and patient is back on her diet (8) Hypothyroidism: Qualifiers: 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 Patient claims compliance with the medication. She states that she takes every day with her other medications the morning. She is on 200 mics of levothyroxine and I am not sure if this is because of lack of absorption. I will change to IV for next few days and then increase the dose to 250 p.o. prior to discharge Plan DVT prophylaxis - Lovenox Stress ulcer prophylaxis - PPI Nutrition -diet ordered Code Status - Full Code Total Critical Care Time - 30 minutes Due to a high probability of clinically significant, life threatening deterioration, the patient required my highest level of preparedness to intervene emergently and I personally spent this critical care time directly and personally managing the patient. This critical care time included obtaining a history; examining the patient; pulse oximetry; ordering and review of studies; arranging urgent treatment with development of a management plan; evaluation of patient's response to treatment; frequent reassessment; and discussions with other providers. It was exclusive of separately billable procedures and treating other patients and teaching time. Please see Assessment and Plan section and the rest of the note for further information on patient assessment and treatment Subjective Date/time seen: 07/27/24 Overnight events reviewed. Afebrile Patient received a session of plasmapheresis yesterday. Continues to be on insulin infusion and dextrose infusion And he states the pain is mildly better but still present. She rates it at 7/10. She still has nausea and does not feel like eating but no vomiting. Patient denies fever, chest pain, shortness of breath, cough, , diarrhea, headache or constipation. All other systems were reviewed and were negative Good urine output She is on room air Other Vitals acceptable Review of Systems Review of Systems: All systems reviewed & are unremarkable except as noted in HPI and below ( HPI) Exam Narrative: General: Pt is alert awake and in NAD Lungs/Chest: Trachea central Clear BS B/L, No crackles or wheezing. Port-A-Cath under skin on both side Cardiac: RRR. Normal S1 S2. No murmurs Circulation: Pedal pulses are intact and symmetrical. Abdomen: Normal bowel sounds.. Soft. Mild tenderness to palpation he and epigastric and left upper cord Extremities: No clubbing, cyanosis or edema. Warm : Pettit in place Neurologic: Follows commands. Moves all 4 extremities PERRL Skin: No Rash Objective Data Vital Signs Vital Signs: Vital Signs - 24 hr 07/26/24 10:00 07/26/24 10:00 07/26/24 10:45 Temperature Pulse Rate 85 86 Respiratory Rate 12 12 Blood Pressure 122/86 Pulse Oximetry 97 86 L Oxygen Delivery Nasal Cannula Oxygen Flow Rate 2 07/26/24 11:48 07/26/24 12:00 07/26/24 12:00 Temperature 37.1 C Pulse Rate 85 87 Respiratory Rate 16 Blood Pressure 129/82 Pulse Oximetry 97 99 Oxygen Delivery Nasal Cannula Oxygen Flow Rate 2 07/26/24 13:28 07/26/24 13:40 07/26/24 13:40 Temperature 36.5 C Pulse Rate 84 Respiratory Rate 15 Blood Pressure 127/84 Pulse Oximetry 98 98 Oxygen Delivery Nasal Cannula Oxygen Flow Rate 1 07/26/24 14:00 07/26/24 14:00 07/26/24 14:00 Temperature 36.5 C 36.3 C L Pulse Rate 84 83 85 Respiratory Rate 15 14 Blood Pressure 126/81 126/81 Pulse Oximetry 99 Oxygen Delivery Oxygen Flow Rate 07/26/24 14:30 07/26/24 15:00 07/26/24 15:15 Temperature 36.5 C 36.6 C 36.5 C Pulse Rate 88 88 84 Respiratory Rate 15 15 15 Blood Pressure 125/80 132/83 126/81 Pulse Oximetry Oxygen Delivery Oxygen Flow Rate 07/26/24 16:00 07/26/24 16:00 07/26/24 16:00 Temperature 36.3 C L Pulse Rate 85 84 Respiratory Rate 14 Blood Pressure 122/65 Pulse Oximetry 99 99 Oxygen Delivery Nasal Cannula Oxygen Flow Rate 2 07/26/24 18:00 07/26/24 18:00 07/26/24 20:00 Temperature Pulse Rate 85 100 85 Respiratory Rate 16 16 Blood Pressure 127/81 Pulse Oximetry 99 99 Oxygen Delivery Nasal Cannula Oxygen Flow Rate 1 07/26/24 20:00 07/26/24 20:00 07/26/24 22:00 Temperature 37.0 C Pulse Rate 87 89 86 Respiratory Rate 20 Blood Pressure 124/82 Pulse Oximetry 100 Oxygen Delivery Oxygen Flow Rate 07/26/24 22:00 07/26/24 23:50 07/27/24 00:00 Temperature 36.7 C Pulse Rate 86 77 Respiratory Rate 16 12 Blood Pressure 124/81 134/81 Pulse Oximetry 99 99 96 Oxygen Delivery Room Air Oxygen Flow Rate 07/27/24 00:00 07/27/24 02:00 07/27/24 02:00 Temperature 36.8 C Pulse Rate 73 82 81 Respiratory Rate 12 Blood Pressure 135/97 H Pulse Oximetry 99 Oxygen Delivery Oxygen Flow Rate 07/27/24 04:00 07/27/24 04:00 07/27/24 04:20 Temperature 36.6 C Pulse Rate 82 84 Respiratory Rate 12 Blood Pressure 130/94 H Pulse Oximetry 96 99 Oxygen Delivery Room Air Oxygen Flow Rate 07/27/24 06:00 07/27/24 06:09 07/27/24 07:57 Temperature 36.6 C Pulse Rate 91 78 Respiratory Rate 28 H Blood Pressure 136/88 Pulse Oximetry 91 Oxygen Delivery Room Air Oxygen Flow Rate 07/27/24 08:00 Temperature 36.5 C Pulse Rate 96 Respiratory Rate 16 Blood Pressure 133/88 Pulse Oximetry 100 Oxygen Delivery Oxygen Flow Rate Intake/Output Intake/Output: Intake & Output 07/24/24 07/25/24 07/26/24 07/27/24 23:59 23:59 23:59 23:59 Intake Total 6020.1 1078.1 Output Total 800 4150 Balance 5220.1 -3071.9 Meds/Results Medications: Active Medications Generic Name Dose Route Start Last Admin Trade Name Freq PRN Reason Stop Dose Admin Alteplase, Recombinant 2 mg 07/26/24 10:22 07/26/24 15:10 Alteplase 2 Mg Vial (Cathflo) IV PUSH 2 mg ONCE PRN Administration Line Occlusion Lipase/Protease/Amylase 2 cap 07/26/24 12:00 07/27/24 08:02 Lipase/Amylase/Protease 12,000 Units Cap PO 2 cap TIDWM RAPHAEL Administration Aspirin 81 mg 07/26/24 09:55 07/27/24 08:02 Aspirin 81 Mg Enteric Tablet PO 81 mg QAM RAPHAEL Administration Atorvastatin Calcium 80 mg 07/26/24 09:55 07/27/24 08:03 Atorvastatin 40 Mg Tablet PO 80 mg DAILY RAPHAEL Administration Dextrose 12.5 gm 07/26/24 05:33 07/26/24 12:13 Dextrose 50% 25 Gm/50 Ml Syringe IV PUSH 12.5 gm PRN PRN Administration Hypoglycemia Protocol Diphenhydramine HCl 25 mg 07/26/24 10:25 07/27/24 06:49 Diphenhydramine Hcl Inj 50 Mg/Ml Vial IV PUSH 25 mg Q4H PRN Administration Itching Enoxaparin Sodium 40 mg 07/26/24 09:55 07/27/24 08:03 Enoxaparin 40 Mg/0.4 Ml Syringe SUB-Q 40 mg DAILY RAPHAEL Administration Fenofibrate 160 mg 07/26/24 09:55 07/27/24 08:02 Fenofibrate 160 Mg Tablet PO 160 mg DAILY RAPHAEL Administration Glucagon 1 mg 07/26/24 05:33 Glucagon For Inj 1 Mg Vial IM PRN PRN Hypoglycemia Protocol Glucose 15 gm 07/26/24 05:33 Glucose Oral Gel 15 Gm Of Glucse In 37.5 Gm Tube PO PRN PRN Hypoglycemia Protocol Hydromorphone HCl 1 mg 07/26/24 09:40 07/27/24 09:09 Hydromorphone Hcl Inj (*Crx) 1 Mg/Ml Syr IV PUSH 1 mg Q3H PRN Administration Pain Rated 7-10 Potassium Chloride/Dextrose/Sod Cl 1,000 mls @ 150 mls/hr 07/26/24 05:55 07/27/24 06:03 Kcl 20 Meq/D5/0.45% Sod Chl IV CONT 150 mls/hr .Q6H40M RAPHAEL Administration Dextrose 1,000 mls @ 100 mls/hr 07/26/24 05:33 Dextrose 5% 1,000 Ml IVPB PRN PRN Hypoglycemia Protocol Insulin Human Regular 100 100 mls @ 1 mls/hr 07/26/24 09:50 07/27/24 08:01 units/ Sodium Chloride IV CONT 1 units/hr .Q24H RAPHAEL 1 mls/hr Titration Protocol 1 UNITS/HR Levothyroxine Sodium 200 mcg 07/26/24 10:25 07/27/24 05:59 Levothyroxine Sodium 100 Mcg Tablet PO 200 mcg DAILY@0630 RAPHAEL Administration Metformin HCl 1,000 mg 07/26/24 09:55 07/27/24 08:03 Metformin Hcl 500 Mg Tablet PO 1,000 mg BIDWM RAPHAEL Administration Metoclopramide HCl 5 mg 07/26/24 11:30 07/27/24 05:59 Metoclopramide Hcl 5 Mg Tablet PO 5 mg ACHS RAPHAEL Administration Ondansetron HCl 4 mg 07/26/24 09:40 07/27/24 09:15 Ondansetron Inj 4 Mg/2 Ml Vial IV PUSH 4 mg Q4H PRN Administration Nausea And Vomiting Pantoprazole Sodium 40 mg 07/26/24 09:55 07/27/24 08:03 Pantoprazole Sodium Iv 40 Mg Vial IV PUSH 40 mg QAM RAPHAEL Administration Ticagrelor 90 mg 07/26/24 09:55 07/27/24 08:02 Ticagrelor 90 Mg Tablet PO 90 mg Q12HR RAPHAEL Administration Labs Labs: Laboratory Results - last 24 hr 07/26/24 07/26/24 07/26/24 09:04 09:25 10:19 WBC RBC Hgb Hct MCV MCH MCHC RDW Plt Count MPV Sodium 135 L Potassium 3.3 L Chloride 106 Carbon Dioxide TNP Anion Gap TNP BUN 8 Creatinine 0.51 L Estim Creat Clear Calc 122 Estimated GFR > 60 Glucose 134 H POC Capillary Glucose 125 H 115 H Calcium 7.0 L Triglycerides TSH (Reflex) Free T4 Nasal MRSA (PCR) 07/26/24 07/26/24 07/26/24 10:54 11:08 11:17 WBC RBC Hgb Hct MCV MCH MCHC RDW Plt Count MPV Sodium Potassium Chloride Carbon Dioxide Anion Gap BUN Creatinine Estim Creat Clear Calc Estimated GFR Glucose POC Capillary Glucose 88 Calcium Triglycerides TSH (Reflex) 57.200 H Free T4 0.11 L Nasal MRSA (PCR) Not detected 07/26/24 07/26/24 07/26/24 11:43 12:10 12:48 WBC RBC Hgb Hct MCV MCH MCHC RDW Plt Count MPV Sodium 135 L Potassium 3.4 Chloride 108 H Carbon Dioxide TNP Anion Gap TNP BUN 6 L Creatinine 0.52 L Estim Creat Clear Calc 122 Estimated GFR > 60 Glucose 64 L POC Capillary Glucose 67 148 H Calcium 7.0 L Triglycerides TSH (Reflex) Free T4 Nasal MRSA (PCR) 07/26/24 07/26/24 07/26/24 13:28 15:44 15:50 WBC RBC Hgb Hct MCV MCH MCHC RDW Plt Count MPV Sodium 136 L Potassium 4.5 Chloride 111 H Carbon Dioxide TNP Anion Gap TNP BUN 5 L Creatinine 0.51 L Estim Creat Clear Calc 124 Estimated GFR > 60 Glucose 172 H POC Capillary Glucose 142 H 186 H Calcium 6.4 L Triglycerides TNP TSH (Reflex) Free T4 Nasal MRSA (PCR) 07/26/24 07/26/24 07/26/24 16:59 18:15 19:15 WBC RBC Hgb Hct MCV MCH MCHC RDW Plt Count MPV Sodium Potassium Chloride Carbon Dioxide Anion Gap BUN Creatinine Estim Creat Clear Calc Estimated GFR Glucose POC Capillary Glucose 205 H 228 H 178 H Calcium Triglycerides TSH (Reflex) Free T4 Nasal MRSA (PCR) 07/26/24 07/26/24 07/26/24 19:59 20:56 20:59 WBC RBC Hgb Hct MCV MCH MCHC RDW Plt Count MPV Sodium 135 L Potassium 4.3 Chloride 108 H Carbon Dioxide 17 L Anion Gap 10 BUN 3 L Creatinine 0.47 L Estim Creat Clear Calc 133 Estimated GFR > 60 Glucose 164 H POC Capillary Glucose 180 H 173 H Calcium 7.9 L Triglycerides TSH (Reflex) Free T4 Nasal MRSA (PCR) 07/26/24 07/26/24 07/26/24 22:03 22:59 23:56 WBC RBC Hgb Hct MCV MCH MCHC RDW Plt Count MPV Sodium Potassium Chloride Carbon Dioxide Anion Gap BUN Creatinine Estim Creat Clear Calc Estimated GFR Glucose POC Capillary Glucose 161 H 164 H 146 H Calcium Triglycerides TSH (Reflex) Free T4 Nasal MRSA (PCR) 07/27/24 07/27/24 07/27/24 00:44 01:18 01:56 WBC RBC Hgb Hct MCV MCH MCHC RDW Plt Count MPV Sodium 136 L Potassium 4.4 Chloride 108 H Carbon Dioxide 18 L Anion Gap 10 BUN 3 L Creatinine 0.45 L Estim Creat Clear Calc 138 Estimated GFR > 60 Glucose 143 H POC Capillary Glucose 149 H 144 H Calcium 8.2 L Triglycerides TSH (Reflex) Free T4 Nasal MRSA (PCR) 07/27/24 07/27/24 07/27/24 02:54 04:00 04:56 WBC RBC Hgb Hct MCV MCH MCHC RDW Plt Count MPV Sodium Potassium Chloride Carbon Dioxide Anion Gap BUN Creatinine Estim Creat Clear Calc Estimated GFR Glucose POC Capillary Glucose 149 H 145 H 151 H Calcium Triglycerides TSH (Reflex) Free T4 Nasal MRSA (PCR) 07/27/24 07/27/24 07/27/24 05:58 06:27 06:50 WBC 6.6 RBC 3.80 L Hgb 11.2 L Hct 34.6 L MCV 91.1 MCH 29.5 MCHC 32.4 RDW 15.7 H Plt Count 220 MPV 9.3 Sodium Potassium Chloride Carbon Dioxide Anion Gap BUN Creatinine Estim Creat Clear Calc Estimated GFR Glucose POC Capillary Glucose 142 H 133 H Calcium Triglycerides TSH (Reflex) Free T4 Nasal MRSA (PCR) 07/27/24 07/27/24 07:59 09:12 WBC RBC Hgb Hct MCV MCH MCHC RDW Plt Count MPV Sodium Potassium Chloride Carbon Dioxide Anion Gap BUN Creatinine Estim Creat Clear Calc Estimated GFR Glucose POC Capillary Glucose 135 H 168 H Calcium Triglycerides TSH (Reflex) Free T4 Nasal MRSA (PCR) Quality VTE Prophylaxis VTE prophylaxis: pharmacologic ordered
--- NOTE | 2024-07-27 09:43 | PM.IMPN ---
Progress Note: A&P Assessment and Plan (1) Abdominal pain: Code(s): R10.9 - Unspecified abdominal pain Status: Acute Assessment and Plan: patient has chronic abdominal pain with intermittent exacerbation which is likely secondary to hypertriglyceridemia and chronic pancreatitis. In the past patient has been admitted the abdominal pain with normal lipase level. Lipase level was unable to be calculated at this time due to grossly lipemic blood. Her triglyceride level was also could not be measured Continue insulin infusion and w D5 IV fluids She received a session of plasmapheresis yesterday and or I spoke to director of loss prevention and will plan to do another session today Triglyceride level yesterday after plasmapheresis was still high. Check triglyceride level after today's session replace low potassium p.r.n. Dilaudid for pain control Clear liquid diet advance as tolerated (2) CAD (coronary artery disease): Code(s): I25.10 - Atherosclerotic heart disease of tolowa dee-ni' coronary artery without angina pectoris Status: Acute Assessment and Plan: continue aspirin Brilinta statin (3) Hypertriglyceridemia: Code(s): E78.1 - Pure hyperglyceridemia Status: Chronic Assessment and Plan: see above (4) Type 2 diabetes mellitus: Qualifiers: Diabetes mellitus complication status: without complication Diabetes mellitus social sciences department chair insulin use: with social sciences department chair use Qualified Code(s): E11.9 - Type 2 diabetes mellitus without complications; Z79.4 - manager of quality (current) use of insulin Code(s): E11.9 - Type 2 diabetes mellitus without complications Status: Chronic Assessment and Plan: patient is on insulin pump at home which is now off as patient is on insulin infusion. continue metformin and regular (5) Nausea & vomiting: Code(s): R11.2 - Nausea with vomiting, unspecified Status: Acute Assessment and Plan: P.r.n. Zofran (6) GERD (gastroesophageal reflux disease): Qualifiers: Esophagitis presence: esophagitis presence not specified Qualified Code(s): K21.9 - Gastro-esophageal reflux disease without esophagitis Code(s): K21.9 - Gastro-esophageal reflux disease without esophagitis Status: Acute Assessment and Plan: continue PPI (7) Chronic pancreatitis: Qualifiers: Pancreatitis type: unspecified pancreatitis type Qualified Code(s): K86.1 - Other chronic pancreatitis Code(s): K86.1 - Other chronic pancreatitis Status: Acute Assessment and Plan: resume Creon pills once a abdominal pain is better and patient is back on her diet (8) Hypothyroidism: Qualifiers: 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 Patient claims compliance with the medication. She states that she takes every day with her other medications the morning. She is on 200 mics of levothyroxine and I am not sure if this is because of lack of absorption. I will change to IV for next few days and then increase the dose to 250 p.o. prior to discharge Subjective Date/time seen: 07/27/24 09:43 Interval history: Patient complains of abd pain. Patient has a recurrent hospitalization due to hypertriglyceridemia and chronic pancreatitis. Patient received plasmapheresis yesterday and possibly today . Review of Systems Review of Systems: All systems reviewed & are unremarkable except as noted in HPI and below ( HPI) Exam Narrative: General: Pt is alert awake and in NAD Lungs/Chest: Trachea central Clear BS B/L, No crackles or wheezing. Port-A-Cath under skin on both side Cardiac: RRR. Normal S1 S2. No murmurs Circulation: Pedal pulses are intact and symmetrical. Abdomen: Normal bowel sounds.. Soft. Mild tenderness to palpation he and epigastric and left upper cord Extremities: No clubbing, cyanosis or edema. Warm : Pettit in place Neurologic: Follows commands. Moves all 4 extremities PERRL Skin: No Rash Const: General: comfortable and no acute distress Other: alert oriented female appears acute on chronically ill. lethargic HENMT: Mouth: Yes moist mucous membranes Eyes: General: appearance normal, both eyes and all related structures Pupils: Equal, round and reactive pupils present Neck: Neck: supple and no JVD Resp: Effort & Inspection: normal respiratory effort Auscultation: clear to auscultation bilaterally Cardio: Rate: regular rate Rhythm: regular rhythm GI: Auscultation: normal bowel sounds Other: obese Skin: General skin exam: normal color and no rashes or lesions noted Wounds: no wounds Neuro: Cranial nerves: Yes Equal, round and reactive pupils present Speech: normal speech Motor exam (neuro): 5/5 motor strength present throughout Sensory Exam: normal sensation Extrem: General: normal to inspection Psych: Mental Status: mental status grossly normal Objective Data Vital Signs Vital Signs: Vital Signs - 24 hr 07/26/24 10:00 07/26/24 10:00 07/26/24 10:45 Temperature Pulse Rate 85 86 Respiratory Rate 12 12 Blood Pressure 122/86 Pulse Oximetry 97 86 L Oxygen Delivery Nasal Cannula Oxygen Flow Rate 2 07/26/24 11:48 07/26/24 12:00 07/26/24 12:00 Temperature 98.7 F Pulse Rate 85 87 Respiratory Rate 16 Blood Pressure 129/82 Pulse Oximetry 97 99 Oxygen Delivery Nasal Cannula Oxygen Flow Rate 2 07/26/24 13:28 07/26/24 13:40 07/26/24 13:40 Temperature 97.7 F Pulse Rate 84 Respiratory Rate 15 Blood Pressure 127/84 Pulse Oximetry 98 98 Oxygen Delivery Nasal Cannula Oxygen Flow Rate 1 07/26/24 14:00 07/26/24 14:00 07/26/24 14:00 Temperature 97.7 F 97.4 F L Pulse Rate 84 83 85 Respiratory Rate 15 14 Blood Pressure 126/81 126/81 Pulse Oximetry 99 Oxygen Delivery Oxygen Flow Rate 07/26/24 14:30 07/26/24 15:00 07/26/24 15:15 Temperature 97.7 F 97.9 F 97.7 F Pulse Rate 88 88 84 Respiratory Rate 15 15 15 Blood Pressure 125/80 132/83 126/81 Pulse Oximetry Oxygen Delivery Oxygen Flow Rate 07/26/24 16:00 07/26/24 16:00 07/26/24 16:00 Temperature 97.4 F L Pulse Rate 85 84 Respiratory Rate 14 Blood Pressure 122/65 Pulse Oximetry 99 99 Oxygen Delivery Nasal Cannula Oxygen Flow Rate 2 07/26/24 18:00 07/26/24 18:00 07/26/24 20:00 Temperature Pulse Rate 85 100 85 Respiratory Rate 16 16 Blood Pressure 127/81 Pulse Oximetry 99 99 Oxygen Delivery Nasal Cannula Oxygen Flow Rate 1 07/26/24 20:00 07/26/24 20:00 07/26/24 22:00 Temperature 98.6 F Pulse Rate 87 89 86 Respiratory Rate 20 Blood Pressure 124/82 Pulse Oximetry 100 Oxygen Delivery Oxygen Flow Rate 07/26/24 22:00 07/26/24 23:50 07/27/24 00:00 Temperature 98.1 F Pulse Rate 86 77 Respiratory Rate 16 12 Blood Pressure 124/81 134/81 Pulse Oximetry 99 99 96 Oxygen Delivery Room Air Oxygen Flow Rate 07/27/24 00:00 07/27/24 02:00 07/27/24 02:00 Temperature 98.3 F Pulse Rate 73 82 81 Respiratory Rate 12 Blood Pressure 135/97 H Pulse Oximetry 99 Oxygen Delivery Oxygen Flow Rate 07/27/24 04:00 07/27/24 04:00 07/27/24 04:20 Temperature 98 F Pulse Rate 82 84 Respiratory Rate 12 Blood Pressure 130/94 H Pulse Oximetry 96 99 Oxygen Delivery Room Air Oxygen Flow Rate 07/27/24 06:00 07/27/24 06:09 07/27/24 07:57 Temperature 98 F Pulse Rate 91 78 Respiratory Rate 28 H Blood Pressure 136/88 Pulse Oximetry 91 Oxygen Delivery Room Air Oxygen Flow Rate 07/27/24 08:00 Temperature 97.7 F Pulse Rate 96 Respiratory Rate 16 Blood Pressure 133/88 Pulse Oximetry 100 Oxygen Delivery Oxygen Flow Rate Intake/Output Intake/Output: Intake & Output 07/24/24 07/25/24 07/26/24 07/27/24 23:59 23:59 23:59 23:59 Intake Total 6020.1 1078.1 Output Total 800 4150 Balance 5220.1 -3071.9 Meds/Results Medications: Active Medications Generic Name Dose Route Start Last Admin Trade Name Freq PRN Reason Stop Dose Admin Alteplase, Recombinant 2 mg 07/26/24 10:22 07/26/24 15:10 Alteplase 2 Mg Vial (Cathflo) IV PUSH 2 mg ONCE PRN Administration Line Occlusion Lipase/Protease/Amylase 2 cap 07/26/24 12:00 07/27/24 08:02 Lipase/Amylase/Protease 12,000 Units Cap PO 2 cap TIDWM RAPHAEL Administration Aspirin 81 mg 07/26/24 09:55 07/27/24 08:02 Aspirin 81 Mg Enteric Tablet PO 81 mg QAM RAPHAEL Administration Atorvastatin Calcium 80 mg 07/26/24 09:55 07/27/24 08:03 Atorvastatin 40 Mg Tablet PO 80 mg DAILY RPAHAEL Administration Dextrose 12.5 gm 07/26/24 05:33 07/26/24 12:13 Dextrose 50% 25 Gm/50 Ml Syringe IV PUSH 12.5 gm PRN PRN Administration Hypoglycemia Protocol Diphenhydramine HCl 25 mg 07/26/24 10:25 07/27/24 06:49 Diphenhydramine Hcl Inj 50 Mg/Ml Vial IV PUSH 25 mg Q4H PRN Administration Itching Enoxaparin Sodium 40 mg 07/26/24 09:55 07/27/24 08:03 Enoxaparin 40 Mg/0.4 Ml Syringe SUB-Q 40 mg DAILY RAPHAEL Administration Fenofibrate 160 mg 07/26/24 09:55 07/27/24 08:02 Fenofibrate 160 Mg Tablet PO 160 mg DAILY RAPHAEL Administration Glucagon 1 mg 07/26/24 05:33 Glucagon For Inj 1 Mg Vial IM PRN PRN Hypoglycemia Protocol Glucose 15 gm 07/26/24 05:33 Glucose Oral Gel 15 Gm Of Glucse In 37.5 Gm Tube PO PRN PRN Hypoglycemia Protocol Hydromorphone HCl 1 mg 07/26/24 09:40 07/27/24 09:09 Hydromorphone Hcl Inj (*Crx) 1 Mg/Ml Syr IV PUSH 1 mg Q3H PRN Administration Pain Rated 7-10 Potassium Chloride/Dextrose/Sod Cl 1,000 mls @ 150 mls/hr 07/26/24 05:55 07/27/24 06:03 Kcl 20 Meq/D5/0.45% Sod Chl IV CONT 150 mls/hr .Q6H40M RAPHAEL Administration Dextrose 1,000 mls @ 100 mls/hr 07/26/24 05:33 Dextrose 5% 1,000 Ml IVPB PRN PRN Hypoglycemia Protocol Insulin Human Regular 100 100 mls @ 1 mls/hr 07/26/24 09:50 07/27/24 08:01 units/ Sodium Chloride IV CONT 1 units/hr .Q24H RAPHAEL 1 mls/hr Titration Protocol 1 UNITS/HR Levothyroxine Sodium 100 mcg 07/28/24 06:30 Levothyroxine Sodium Inj 100 Mcg/5 Ml Vial IV PUSH DAILY@0630 RAPHAEL Metformin HCl 1,000 mg 07/26/24 09:55 07/27/24 08:03 Metformin Hcl 500 Mg Tablet PO 1,000 mg BIDWM RAPHAEL Administration Metoclopramide HCl 5 mg 07/26/24 11:30 07/27/24 05:59 Metoclopramide Hcl 5 Mg Tablet PO 5 mg ACHS RAPHAEL Administration Ondansetron HCl 4 mg 07/26/24 09:40 07/27/24 09:15 Ondansetron Inj 4 Mg/2 Ml Vial IV PUSH 4 mg Q4H PRN Administration Nausea And Vomiting Pantoprazole Sodium 40 mg 07/26/24 09:55 07/27/24 08:03 Pantoprazole Sodium Iv 40 Mg Vial IV PUSH 40 mg QAM RAPHAEL Administration Ticagrelor 90 mg 07/26/24 09:55 07/27/24 08:02 Ticagrelor 90 Mg Tablet PO 90 mg Q12HR RAPHAEL Administration Labs Labs: Laboratory Results - last 24 hr 07/26/24 07/26/24 07/26/24 09:25 10:19 10:54 WBC RBC Hgb Hct MCV MCH MCHC RDW Plt Count MPV Sodium Potassium Chloride Carbon Dioxide Anion Gap BUN Creatinine Estim Creat Clear Calc Estimated GFR Glucose POC Capillary Glucose 125 H 115 H Calcium Triglycerides TSH (Reflex) Free T4 Nasal MRSA (PCR) Not detected 07/26/24 07/26/24 07/26/24 11:08 11:17 11:43 WBC RBC Hgb Hct MCV MCH MCHC RDW Plt Count MPV Sodium 135 L Potassium 3.4 Chloride 108 H Carbon Dioxide TNP Anion Gap TNP BUN 6 L Creatinine 0.52 L Estim Creat Clear Calc 122 Estimated GFR > 60 Glucose 64 L POC Capillary Glucose 88 Calcium 7.0 L Triglycerides TSH (Reflex) 57.200 H Free T4 0.11 L Nasal MRSA (PCR) 07/26/24 07/26/24 07/26/24 12:10 12:48 13:28 WBC RBC Hgb Hct MCV MCH MCHC RDW Plt Count MPV Sodium Potassium Chloride Carbon Dioxide Anion Gap BUN Creatinine Estim Creat Clear Calc Estimated GFR Glucose POC Capillary Glucose 67 148 H 142 H Calcium Triglycerides TSH (Reflex) Free T4 Nasal MRSA (PCR) 07/26/24 07/26/24 07/26/24 15:44 15:50 16:59 WBC RBC Hgb Hct MCV MCH MCHC RDW Plt Count MPV Sodium 136 L Potassium 4.5 Chloride 111 H Carbon Dioxide TNP Anion Gap TNP BUN 5 L Creatinine 0.51 L Estim Creat Clear Calc 124 Estimated GFR > 60 Glucose 172 H POC Capillary Glucose 186 H 205 H Calcium 6.4 L Triglycerides TNP TSH (Reflex) Free T4 Nasal MRSA (PCR) 07/26/24 07/26/24 07/26/24 18:15 19:15 19:59 WBC RBC Hgb Hct MCV MCH MCHC RDW Plt Count MPV Sodium Potassium Chloride Carbon Dioxide Anion Gap BUN Creatinine Estim Creat Clear Calc Estimated GFR Glucose POC Capillary Glucose 228 H 178 H 180 H Calcium Triglycerides TSH (Reflex) Free T4 Nasal MRSA (PCR) 07/26/24 07/26/24 07/26/24 20:56 20:59 22:03 WBC RBC Hgb Hct MCV MCH MCHC RDW Plt Count MPV Sodium 135 L Potassium 4.3 Chloride 108 H Carbon Dioxide 17 L Anion Gap 10 BUN 3 L Creatinine 0.47 L Estim Creat Clear Calc 133 Estimated GFR > 60 Glucose 164 H POC Capillary Glucose 173 H 161 H Calcium 7.9 L Triglycerides TSH (Reflex) Free T4 Nasal MRSA (PCR) 07/26/24 07/26/24 07/27/24 22:59 23:56 00:44 WBC RBC Hgb Hct MCV MCH MCHC RDW Plt Count MPV Sodium 136 L Potassium 4.4 Chloride 108 H Carbon Dioxide 18 L Anion Gap 10 BUN 3 L Creatinine 0.45 L Estim Creat Clear Calc 138 Estimated GFR > 60 Glucose 143 H POC Capillary Glucose 164 H 146 H Calcium 8.2 L Triglycerides TSH (Reflex) Free T4 Nasal MRSA (PCR) 07/27/24 07/27/24 07/27/24 01:18 01:56 02:54 WBC RBC Hgb Hct MCV MCH MCHC RDW Plt Count MPV Sodium Potassium Chloride Carbon Dioxide Anion Gap BUN Creatinine Estim Creat Clear Calc Estimated GFR Glucose POC Capillary Glucose 149 H 144 H 149 H Calcium Triglycerides TSH (Reflex) Free T4 Nasal MRSA (PCR) 07/27/24 07/27/24 07/27/24 04:00 04:56 05:58 WBC RBC Hgb Hct MCV MCH MCHC RDW Plt Count MPV Sodium Potassium Chloride Carbon Dioxide Anion Gap BUN Creatinine Estim Creat Clear Calc Estimated GFR Glucose POC Capillary Glucose 145 H 151 H 142 H Calcium Triglycerides TSH (Reflex) Free T4 Nasal MRSA (PCR) 07/27/24 07/27/24 07/27/24 06:27 06:50 07:59 WBC 6.6 RBC 3.80 L Hgb 11.2 L Hct 34.6 L MCV 91.1 MCH 29.5 MCHC 32.4 RDW 15.7 H Plt Count 220 MPV 9.3 Sodium Potassium Chloride Carbon Dioxide Anion Gap BUN Creatinine Estim Creat Clear Calc Estimated GFR Glucose POC Capillary Glucose 133 H 135 H Calcium Triglycerides TSH (Reflex) Free T4 Nasal MRSA (PCR) 07/27/24 09:12 WBC RBC Hgb Hct MCV MCH MCHC RDW Plt Count MPV Sodium Potassium Chloride Carbon Dioxide Anion Gap BUN Creatinine Estim Creat Clear Calc Estimated GFR Glucose POC Capillary Glucose 168 H Calcium Triglycerides TSH (Reflex) Free T4 Nasal MRSA (PCR) Quality VTE Prophylaxis VTE prophylaxis: pharmacologic ordered Hospitalist MIPS Advance Care Plan I have confirmed that the patient's Advanced Care Plan is present, code status is documented, or surrogate decision maker is listed in patient medical record.: Yes Medication Reconciliation I have utilized all available resources to obtain, update and review the patients current medications (includes all prescriptions, OTC, herbals, cannabis, and nutritional supplements).: Yes
[2024-07-27 10:00] LABS: Glucose Point of Care 156 mg/dl (65-105)
[2024-07-27 10:25] LABS: Alanine Aminotransferase 11 U/L (6-35); Albumin Level 4.2 g/dL (3.5-5.1); Alkaline Phosphatase 37 U/L (38-126); Anion Gap 13 mmol/L (4-12); Aspartate Amino Transferase 16 U/L (14-36); Bilirubin,Total 0.4 mg/dL (0.2-1.3); Calcium 8.6 mg/dL (8.4-10.2); Carbon Dioxide 17 mmol/L (22-30); Chloride 108 mmol/L (98-107); Estimated CRCL calculation 134 ml/min; Estimated Glomerular Filt Rate > 60; Glucose 140 mg/dL (65-110); Phosphorus 3.9 mg/dL (2.5-4.5); Potassium 4.2 mmol/L (3.4-5.0); Sodium 138 mmol/L (137-145)
[2024-07-27 10:28] LABS: Blood Urea Nitrogen < 2 mg/dL (7-17)
[2024-07-27 10:36] LABS: Anion Gap 10 mmol/L (4-12); Calcium 8.5 mg/dL (8.4-10.2); Carbon Dioxide 19 mmol/L (22-30); Chloride 107 mmol/L (98-107); Estimated CRCL calculation 127 ml/min; Estimated Glomerular Filt Rate > 60; Glucose 154 mg/dL (65-110); Potassium 4.2 mmol/L (3.4-5.0); Sodium 136 mmol/L (137-145)
[2024-07-27 10:45] LABS: Blood Urea Nitrogen < 2 mg/dL (7-17)
[2024-07-27 11:13] LABS: Triglycerides 1615 mg/dL (<150)
[2024-07-27 11:14] LABS: Glucose Point of Care 160 mg/dl (65-105)
[2024-07-27 12:04] LABS: Glucose Point of Care 150 mg/dl (65-105)
[2024-07-27 13:17] LABS: Glucose Point of Care 183 mg/dl (65-105)
[2024-07-27 14:20] LABS: Glucose Point of Care 175 mg/dl (65-105)
[2024-07-27 15:04] LABS: Glucose Point of Care 158 mg/dl (65-105)
[2024-07-27 15:13] LABS: Anion Gap 14 mmol/L (4-12); Blood Urea Nitrogen < 2 mg/dL (7-17); Calcium 8.4 mg/dL (8.4-10.2); Carbon Dioxide 14 mmol/L (22-30); Chloride 106 mmol/L (98-107); Estimated CRCL calculation 134 ml/min; Estimated Glomerular Filt Rate > 60; Glucose 159 mg/dL (65-110); Potassium 5.2 mmol/L (3.4-5.0); Sodium 134 mmol/L (137-145)
[2024-07-27] MEDS: ALBUMIN HUMAN 5% 999 GM XX (15:30)
[2024-07-27] MEDS: SODIUM CHLORIDE 0.9% IV 1,000 ML 999 ML IV CONT (15:30)
[2024-07-27] MEDS: CALCIUM GLUC 2,000 MG/NS 100ML 2,000 MG/100 ML BAG 100 MG IVPB (15:30)
--- NOTE | 2024-07-27 16:09 | PM.PNNEP ---
Subjective Date/time seen: 07/27/24 16:09 Interval history: Follow-up for hypertriglyceridemia. Status post plasmapheresis session yesterday afternoon and tolerated the procedure reasonably well; repeat triglyceride level today noted so undergoing plasmapheresis today as well (seen on plasmapheresis at 4:00PM); still with on/off abdominal pain in association with nausea but no apparent vomiting noted. Exam Narrative: General: WD/WN female in NAD Heart: normal S1 and S2; no rub Lungs: clear to auscultation Abdomen: soft, mild TTP present; positive bowel sounds Extremities: no cyanosis or clubbing; trace edema Skin: warm and dry Objective Data Vital Signs Vital Signs: Vital Signs Temp Pulse Resp BP Pulse Ox O2 Del Method O2 Flow Rate 07/27/24 16:00 98.6 F 86 12 155/93 H 97 Room Air 07/27/24 15:30 98.3 F 91 16 138/77 99 07/27/24 14:00 90 15 138/77 97 07/27/24 14:00 90 07/27/24 12:00 84 07/27/24 12:00 Room Air 07/27/24 12:00 98.4 F 93 16 134/89 100 07/27/24 10:00 82 07/27/24 10:00 97.8 F 82 12 131/98 H 94 07/27/24 08:00 79 07/27/24 08:00 97.7 F 96 16 133/88 100 07/27/24 07:57 Room Air 07/27/24 06:09 78 07/27/24 06:00 98 F 91 28 H 136/88 91 07/27/24 04:20 99 Room Air 07/27/24 04:00 98 F 84 12 130/94 H 96 07/27/24 04:00 82 07/27/24 02:00 98.3 F 81 12 135/97 H 99 07/27/24 02:00 82 07/27/24 00:00 73 07/27/24 00:00 98.1 F 77 12 134/81 96 07/26/24 23:50 99 Room Air 07/26/24 22:00 86 16 124/81 99 07/26/24 22:00 86 07/26/24 20:00 98.6 F 89 20 124/82 100 07/26/24 20:00 87 07/26/24 20:00 85 16 99 Nasal Cannula 1 Intake/Output Intake/Output: Intake & Output 07/24/24 07/25/24 07/26/24 07/27/24 23:59 23:59 23:59 23:59 Intake Total 6020.1 2313.6 Output Total 800 5550 Balance 5220.1 -3236.4 Meds/Results Medications: Active Medications Generic Name Dose Route Start Last Admin Trade Name Freq PRN Reason Stop Dose Admin Alteplase, Recombinant 2 mg 07/26/24 10:22 07/26/24 15:10 Alteplase 2 Mg Vial (Cathflo) IV PUSH 2 mg ONCE PRN Administration Line Occlusion Lipase/Protease/Amylase 2 cap 07/26/24 12:00 07/27/24 16:38 Lipase/Amylase/Protease 12,000 Units Cap PO Not Given TIDWM RAPHAEL Aspirin 81 mg 07/26/24 09:55 07/27/24 08:02 Aspirin 81 Mg Enteric Tablet PO 81 mg QAM RAPHAEL Administration Atorvastatin Calcium 80 mg 07/26/24 09:55 07/27/24 08:03 Atorvastatin 40 Mg Tablet PO 80 mg DAILY RAPHAEL Administration Dextrose 12.5 gm 07/26/24 05:33 07/26/24 12:13 Dextrose 50% 25 Gm/50 Ml Syringe IV PUSH 12.5 gm PRN PRN Administration Hypoglycemia Protocol Diphenhydramine HCl 25 mg 07/26/24 10:25 07/27/24 16:39 Diphenhydramine Hcl Inj 50 Mg/Ml Vial IV PUSH 25 mg Q4H PRN Administration Itching Enoxaparin Sodium 40 mg 07/26/24 09:55 07/27/24 08:03 Enoxaparin 40 Mg/0.4 Ml Syringe SUB-Q 40 mg DAILY RAPHAEL Administration Fenofibrate 160 mg 07/26/24 09:55 07/27/24 08:02 Fenofibrate 160 Mg Tablet PO 160 mg DAILY RAPHAEL Administration Glucagon 1 mg 07/26/24 05:33 Glucagon For Inj 1 Mg Vial IM PRN PRN Hypoglycemia Protocol Glucose 15 gm 07/26/24 05:33 Glucose Oral Gel 15 Gm Of Glucse In 37.5 Gm Tube PO PRN PRN Hypoglycemia Protocol Hydromorphone HCl 1 mg 07/26/24 09:40 07/27/24 15:04 Hydromorphone Hcl Inj (*Crx) 1 Mg/Ml Syr IV PUSH 1 mg Q3H PRN Administration Pain Rated 7-10 Potassium Chloride/Dextrose/Sod Cl 1,000 mls @ 150 mls/hr 07/26/24 05:55 07/27/24 12:14 Kcl 20 Meq/D5/0.45% Sod Chl IV CONT 150 mls/hr .Q6H40M RAPHAEL Administration Dextrose 1,000 mls @ 100 mls/hr 07/26/24 05:33 Dextrose 5% 1,000 Ml IVPB PRN PRN Hypoglycemia Protocol Insulin Human Regular 100 100 mls @ 1 mls/hr 07/26/24 09:50 07/27/24 16:00 units/ Sodium Chloride IV CONT 1 units/hr .Q24H RAPHAEL 1 mls/hr Titration Protocol 1 UNITS/HR Levothyroxine Sodium 100 mcg 07/28/24 06:30 Levothyroxine Sodium Inj 100 Mcg/5 Ml Vial IV PUSH DAILY@0630 [facility] Metformin HCl 1,000 mg 07/26/24 09:55 07/27/24 18:23 Metformin Hcl 500 Mg Tablet PO Not Given BIDWM RAPHAEL Metoclopramide HCl 5 mg 07/26/24 11:30 07/27/24 16:38 Metoclopramide Hcl 5 Mg Tablet PO Not Given ACHS [facility] Ondansetron HCl 4 mg 07/26/24 09:40 07/27/24 09:15 Ondansetron Inj 4 Mg/2 Ml Vial IV PUSH 4 mg Q4H PRN Administration Nausea And Vomiting Pantoprazole Sodium 40 mg 07/26/24 09:55 07/27/24 08:03 Pantoprazole Sodium Iv 40 Mg Vial IV PUSH 40 mg QAM RAPHAEL Administration Ticagrelor 90 mg 07/26/24 09:55 07/27/24 08:02 Ticagrelor 90 Mg Tablet PO 90 mg Q12HR RAPHAEL Administration Labs Labs: Laboratory Tests 07/27/24 06:27 07/27/24 14:58 07/27/24 06:27 Sodium 138 Potassium 4.2 Chloride 108 H Carbon Dioxide 17 L Anion Gap 13 H BUN < 2 L Creatinine 0.46 L Estim Creat Clear Calc 134 Estimated GFR > 60 Glucose 140 H Calcium 8.6 Phosphorus 3.9 Magnesium 1.0 L Total Bilirubin 0.4 AST 16 ALT 11 Alkaline Phosphatase 37 L Total Protein 6.0 L Albumin 4.2 Triglycerides 1615 H Microbiology 07/26/24 11:46 Blood Blood Culture - Preliminary 07/26/24 11:43 Blood Blood Culture - Preliminary
[2024-07-27 16:13] LABS: Glucose Point of Care 143 mg/dl (65-105)
[2024-07-27] MEDS: HEPARIN SODIUM, PORCINE 10,000 UNITS/10 ML VIAL 10000 UNITS IRRIGATION (16:53)
[2024-07-27 17:13] LABS: Glucose Point of Care 147 mg/dl (65-105)
[2024-07-27 18:12] LABS: Glucose Point of Care 181 mg/dl (65-105)
--- NOTE | 2024-07-27 19:25 | PC.NURSE ---
Pt sitting on commode and refusing 1900 accucheck.
[2024-07-27 19:52] LABS: Anion Gap 15 mmol/L (4-12); Calcium 7.8 mg/dL (8.4-10.2); Carbon Dioxide 16 mmol/L (22-30); Chloride 107 mmol/L (98-107); Estimated CRCL calculation 113 ml/min; Estimated Glomerular Filt Rate > 60; Glucose 181 mg/dL (65-110); Potassium 4.3 mmol/L (3.4-5.0); Sodium 138 mmol/L (137-145); Triglycerides 403 mg/dL (<150)
--- NOTE | 2024-07-27 19:53 | PC.NURSE ---
[facility] Casandra Jones 1975 TPE # [address] Kaminski Pt. resting in bed, denies any shortness of breath, chest pain or any new disease related symptoms, taking Dilaudid for abdominal pain control with partial relief. VSS. Chart,labs,notes.meds,orders reviewed, today's procedure confirmed with Vicki VIDEO GAMES MECHANIC. Time out completed. Unable to flush Right PFP well after accessed x 2 so Righ PFP deaccesed with needle intact, gauze dressing c/d/i. Left PFP flushed well with good blood return & flushed well. Triglycerides 1615 and will get rechecked tonight, per Dr. Kaminski we are finished with TPE after today. PRE VS: 98.3-91-16-138/77-99%RA START:1530 END:1845 Pt. tolerated TPE well without any side effects or advverse events POST VS: 98.1-98-18-125/97-99% RA See Procedure flowsheet for intaprocedure VS. TOTAL IN: 3655 ml EFFLUENT: off white meghna plasma TOTAL OUT: 3542 ml FB: +113 ml PFP flushed with NS & high dose heparin locked, deaccessed & needle removed, gauze dressing c/d/i. Report given to Vicki VIDEO GAMES MECHANIC. Paulina BSN RN
[2024-07-27 19:55] LABS: Glucose Point of Care 189 mg/dl (65-105)
[2024-07-27] MEDS: INSULIN GLARGINE (*BKC) 100 UNITS/ML 10 UNITS SUB-Q (20:25)
[2024-07-27 20:29] LABS: Blood Urea Nitrogen < 2 mg/dL (7-17)
--- NOTE | 2024-07-27 22:26 | PC.NURSE ---
This patient, Casandra Jones, was transferred to [facility] on 07/27/24 at 2218. Personal belongings sent with patient. Report given to Velma OLGUIN. Appropriate documentation sent with patient.
--- NOTE | 2024-07-27 23:17 | ADMGEN ---
This patient, Casandra Jones, was admitted to [facility] Surg Room 301-01. Patient/family oriented to hospital policies and general routines including ID bracelet, bed and alarms, visiting hours, pain management, procedures, bathroom and other care routines, personal items, smoking policy, room service/diet, and visiting hours. Information on how to activate the Rapid Response Team has been discussed. Patient/Family are encouraged to report perceived risks to care and to ask questions if they do not understand what they are told or what they should do.
[2024-07-28] MEDS: traZODone HCL 50 MG TABLET 100 MG PO (01:13)
[2024-07-28] MEDS: LORazepam (*CRX) 1 MG TABLET PO (01:13)
[2024-07-28] MEDS: HYDROmorphone HCL INJ (*CRX) 1 MG/ML SYR IV PUSH ×5 (04:16→20:47)
[2024-07-28 05:00] VITALS: BP 131/78; PULSE 101; RESP 18; TEMP 35.9; O2SAT 96
[2024-07-28 06:00] LABS: Hematocrit 38.7 % (37.0-47.0); Hemoglobin 12.6 g/dL (12.0-15.0); Mean Corpuscular HGB Conc 32.6 g/dl (32-36); Mean Corpuscular Hemoglobin 29.4 pg (26-34); Mean Corpuscular Volume 90.2 fl (80-100); Mean Platelet Volume 9.2 fl (7.4-10.4); Platelet Count Result 227 k/mm3 (150-375); Red Blood Count 4.29 M/mm3 (4.2-5.4); White Blood Count 8.8 K/mm3 (4.5-10.0)
[2024-07-28] MEDS: METOCLOPRAMIDE HCL 5 MG TABLET PO ×4 (06:08→20:48)
[2024-07-28] MEDS: LEVOTHYROXINE SODIUM INJ 100 MCG/5 ML VIAL IV PUSH (06:08)
[2024-07-28 06:23] LABS: Alanine Aminotransferase 11 U/L (6-35); Albumin Level 4.4 g/dL (3.5-5.1); Alkaline Phosphatase 27 U/L (38-126); Anion Gap 15 mmol/L (4-12); Aspartate Amino Transferase 15 U/L (14-36); Bilirubin,Total 0.5 mg/dL (0.2-1.3); Calcium 8.5 mg/dL (8.4-10.2); Carbon Dioxide 16 mmol/L (22-30); Chloride 106 mmol/L (98-107); Estimated CRCL calculation 123 ml/min; Estimated Glomerular Filt Rate > 60; Glucose 164 mg/dL (65-110); Magnesium 0.9 mg/dL (1.6-2.3); Phosphorus 4.2 mg/dL (2.5-4.5); Potassium 4.2 mmol/L (3.4-5.0); Sodium 137 mmol/L (137-145)
[2024-07-28 07:04] LABS: Blood Urea Nitrogen < 2 mg/dL (7-17); Triglycerides 587 mg/dL (<150)
[2024-07-28 07:36] LABS: Glucose Point of Care 186 mg/dl (65-105)
[2024-07-28] MEDS: ONDANSETRON INJ 4 MG/2 ML VIAL IV PUSH ×2 (09:18→16:54)
[2024-07-28] MEDS: PANTOPRAZOLE SODIUM IV 40 MG VIAL IV PUSH (09:18)
--- NOTE | 2024-07-28 10:52 | PM.PNNEP ---
Subjective Date/time seen: 07/28/24 10:52 Objective Data Vital Signs Vital Signs: Vital Signs Temp Pulse Resp BP Pulse Ox O2 Del Method 07/28/24 05:00 96.7 F L 101 H 18 131/78 96 07/27/24 20:00 94 07/27/24 20:00 98.2 F 97 14 121/84 96 07/27/24 19:56 Room Air Intake/Output Intake/Output: Intake & Output 07/25/24 07/26/24 07/27/24 07/28/24 23:59 23:59 23:59 23:59 Intake Total 6020.1 3665.4 480 Output Total 800 7550 0 Balance 5220.1 -3884.6 480 Meds/Results Medications: Active Medications Generic Name Dose Route Start Last Admin Trade Name Freq PRN Reason Stop Dose Admin Alteplase, Recombinant 2 mg 07/26/24 10:22 07/26/24 15:10 Alteplase 2 Mg Vial (Cathflo) IV PUSH 2 mg ONCE PRN Administration Line Occlusion Lipase/Protease/Amylase 2 cap 07/26/24 12:00 07/28/24 16:56 Lipase/Amylase/Protease 12,000 Units Cap PO 2 cap TIDWM RAPHAEL Administration Aspirin 81 mg 07/26/24 09:55 07/28/24 12:58 Aspirin 81 Mg Enteric Tablet PO 81 mg QAM RAPHAEL Administration Atorvastatin Calcium 80 mg 07/26/24 09:55 07/28/24 12:58 Atorvastatin 40 Mg Tablet PO 80 mg DAILY RAPHAEL Administration Dextrose 12.5 gm 07/26/24 05:33 07/26/24 12:13 Dextrose 50% 25 Gm/50 Ml Syringe IV PUSH 12.5 gm PRN PRN Administration Hypoglycemia Protocol Diphenhydramine HCl 25 mg 07/26/24 10:25 07/28/24 17:49 Diphenhydramine Hcl Inj 50 Mg/Ml Vial IV PUSH 25 mg Q4H PRN Administration Itching Enoxaparin Sodium 40 mg 07/26/24 09:55 07/28/24 12:58 Enoxaparin 40 Mg/0.4 Ml Syringe SUB-Q 40 mg DAILY RAPHAEL Administration Fenofibrate 160 mg 07/26/24 09:55 07/28/24 12:57 Fenofibrate 160 Mg Tablet PO 160 mg DAILY RAPHAEL Administration Glucagon 1 mg 07/26/24 05:33 Glucagon For Inj 1 Mg Vial IM PRN PRN Hypoglycemia Protocol Glucose 15 gm 07/26/24 05:33 Glucose Oral Gel 15 Gm Of Glucse In 37.5 Gm Tube PO PRN PRN Hypoglycemia Protocol Hydromorphone HCl 1 mg 07/26/24 09:40 07/28/24 16:54 Hydromorphone Hcl Inj (*Crx) 1 Mg/Ml Syr IV PUSH 1 mg Q3H PRN Administration Pain Rated 7-10 Dextrose 1,000 mls @ 100 mls/hr 07/26/24 05:33 Dextrose 5% 1,000 Ml IVPB PRN PRN Hypoglycemia Protocol Magnesium Sulfate 4 gm in 100 mls @ 25 mls/hr 07/28/24 17:11 07/28/24 17:50 Magnesium Sulf 4 Gm/[id number] IVPB 07/28/24 21:10 25 mls/hr ONCE ONE Administration Insulin Aspart 3 - 6 units 07/27/24 21:00 07/28/24 17:09 Insulin Aspart (*Bkc) 100 Units/Ml SUB-Q Not Given Q4HR RAPHAEL Protocol Levothyroxine Sodium 100 mcg 07/28/24 06:30 07/28/24 06:08 Levothyroxine Sodium Inj 100 Mcg/5 Ml Vial IV PUSH 100 mcg DAILY@0630 RAPHAEL Administration Metformin HCl 1,000 mg 07/26/24 09:55 07/28/24 16:56 Metformin Hcl 500 Mg Tablet PO 1,000 mg BIDWM RAPHAEL Administration Metoclopramide HCl 5 mg 07/26/24 11:30 07/28/24 16:56 Metoclopramide Hcl 5 Mg Tablet PO 5 mg ACHS RAPHAEL Administration Ondansetron HCl 4 mg 07/26/24 09:40 07/28/24 16:54 Ondansetron Inj 4 Mg/2 Ml Vial IV PUSH 4 mg Q4H PRN Administration Nausea And Vomiting Pantoprazole Sodium 40 mg 07/26/24 09:55 07/28/24 09:18 Pantoprazole Sodium Iv 40 Mg Vial IV PUSH 40 mg QAM RAPHAEL Administration Ticagrelor 90 mg 07/26/24 09:55 07/28/24 12:59 Ticagrelor 90 Mg Tablet PO 90 mg Q12HR RAPHAEL Administration Labs Labs: Laboratory Tests 07/28/24 05:16 07/28/24 05:16 Calcium 8.5 Phosphorus 4.2 Magnesium 0.9 L Total Bilirubin 0.5 AST 15 ALT 11 Alkaline Phosphatase 27 L Total Protein 6.0 L Albumin 4.4 Triglycerides 587 H
[2024-07-28 11:20] LABS: Glucose Point of Care 201 mg/dl (65-105)
[2024-07-28] MEDS: diphenhydrAMINE HCl INJ 50 MG/ML VIAL 25 MG IV PUSH ×3 (12:56→22:47)
[2024-07-28] MEDS: metFORMIN HCL 500 MG TABLET 1000 MG PO ×2 (12:57→16:56)
[2024-07-28] MEDS: FENOFIBRATE 160 MG TABLET PO (12:57)
[2024-07-28] MEDS: ATORVASTATIN 40 MG TABLET 80 MG PO (12:58)
[2024-07-28] MEDS: ENOXAPARIN 40 MG/0.4 ML SYRINGE SUB-Q (12:58)
[2024-07-28] MEDS: ASPIRIN 81 MG ENTERIC TABLET PO (12:58)
[2024-07-28] MEDS: TICAGRELOR 90 MG TABLET PO ×2 (12:59→20:48)
[2024-07-28] MEDS: LIPASE/AMYLASE/PROTEASE 12,000 UNITS CAP 2 CAP PO ×2 (13:03→16:56)
[2024-07-28] MEDS: INSULIN ASPART (*BKC) 100 UNITS/ML SUB-Q (13:05)
--- NOTE | 2024-07-28 13:13 | PM.IMPN ---
Progress Note: A&P Assessment and Plan (1) Abdominal pain: Code(s): R10.9 - Unspecified abdominal pain Status: Acute Assessment and Plan: patient has chronic abdominal pain with intermittent exacerbation which is likely secondary to hypertriglyceridemia and chronic pancreatitis. In the past patient has been admitted the abdominal pain with normal lipase level. Lipase level was unable to be calculated at this time due to grossly lipemic blood. Her triglyceride level was also could not be measured Continue insulin infusion and w D5 IV fluids She received a session of plasmapheresis yesterday and or I spoke to motor and controls tester and will plan to do another session today Triglyceride level yesterday after plasmapheresis was still high. Check triglyceride level after today's session replace low potassium p.r.n. Dilaudid for pain control tolerating diet Awaiting TG to be below 587. (2) CAD (coronary artery disease): Code(s): I25.10 - Atherosclerotic heart disease of [place] coronary artery without angina pectoris Status: Acute Assessment and Plan: continue aspirin Brilinta statin (3) Hypertriglyceridemia: Code(s): E78.1 - Pure hyperglyceridemia Status: Chronic Assessment and Plan: see above (4) Type 2 diabetes mellitus: Qualifiers: Diabetes mellitus detention insulin use: with ocean transportation intermediary use Diabetes mellitus complication status: without complication Qualified Code(s): E11.9 - Type 2 diabetes mellitus without complications; Z79.4 - adjunct faculty for medical terminology (current) use of insulin Code(s): E11.9 - Type 2 diabetes mellitus without complications Status: Chronic Assessment and Plan: patient is on insulin pump at home which is now off as patient is on insulin infusion. continue metformin and regular (5) Nausea & vomiting: Code(s): R11.2 - Nausea with vomiting, unspecified Status: Acute Assessment and Plan: P.r.n. Zofran (6) GERD (gastroesophageal reflux disease): Qualifiers: Esophagitis presence: esophagitis presence not specified Qualified Code(s): K21.9 - Gastro-esophageal reflux disease without esophagitis Code(s): K21.9 - Gastro-esophageal reflux disease without esophagitis Status: Acute Assessment and Plan: continue PPI (7) Chronic pancreatitis: Qualifiers: Pancreatitis type: unspecified pancreatitis type Qualified Code(s): K86.1 - Other chronic pancreatitis Code(s): K86.1 - Other chronic pancreatitis Status: Acute Assessment and Plan: resume Creon pills once a abdominal pain is better and patient is back on her diet (8) Hypothyroidism: Qualifiers: 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 Patient claims compliance with the medication. She states that she takes every day with her other medications the morning. She is on 200 mics of levothyroxine and I am not sure if this is because of lack of absorption. I will change to IV for next few days and then increase the dose to 250 p.o. prior to discharge Plan DVT prophylaxis on Sq Lovenox Subjective Date/time seen: 07/28/24 13:13 Interval history: TG 587 today s/p plasmapharesis Tolerating diet, awaiting TG to lower below 500 for discharge Review of Systems Review of Systems: All systems reviewed & are unremarkable except as noted in HPI and below ( HPI) Exam Narrative: General: Pt is alert awake and in NAD Lungs/Chest: Trachea central Clear BS B/L, No crackles or wheezing. Port-A-Cath under skin on both side Cardiac: RRR. Normal S1 S2. No murmurs Circulation: Pedal pulses are intact and symmetrical. Abdomen: Normal bowel sounds.. Soft. Mild tenderness to palpation he and epigastric and left upper cord Extremities: No clubbing, cyanosis or edema. Warm : Pettit in place Neurologic: Follows commands. Moves all 4 extremities PERRL Skin: No Rash Const: General: comfortable and no acute distress Other: alert oriented female appears acute on chronically ill. lethargic HENMT: Mouth: Yes moist mucous membranes Eyes: General: appearance normal, both eyes and all related structures Pupils: Equal, round and reactive pupils present Neck: Neck: supple and no JVD Resp: Effort & Inspection: normal respiratory effort Auscultation: clear to auscultation bilaterally Cardio: Rate: regular rate Rhythm: regular rhythm GI: Auscultation: normal bowel sounds Other: obese Skin: General skin exam: normal color and no rashes or lesions noted Wounds: no wounds Neuro: Cranial nerves: Yes Equal, round and reactive pupils present Speech: normal speech Motor exam (neuro): 5/5 motor strength present throughout Sensory Exam: normal sensation Extrem: General: normal to inspection Psych: Mental Status: mental status grossly normal Objective Data Vital Signs Vital Signs: Vital Signs - 24 hr 07/27/24 14:00 07/27/24 14:00 07/27/24 15:30 Temperature 98.3 F Pulse Rate 90 90 91 Respiratory Rate 15 16 Blood Pressure 138/77 138/77 Pulse Oximetry 97 99 Oxygen Delivery 07/27/24 16:00 07/27/24 16:00 07/27/24 16:00 Temperature 98.6 F Pulse Rate 86 95 Respiratory Rate 12 Blood Pressure 155/93 H Pulse Oximetry 97 Oxygen Delivery Room Air 07/27/24 16:30 07/27/24 17:34 07/27/24 17:40 Temperature 98.3 F 98.3 F 98.3 F Pulse Rate 92 84 93 Respiratory Rate 16 16 16 Blood Pressure 136/101 H 155/93 H 141/95 H Pulse Oximetry Oxygen Delivery 07/27/24 17:50 07/27/24 17:57 07/27/24 18:00 Temperature 98.3 F 98.3 F Pulse Rate 93 96 98 Respiratory Rate 16 16 Blood Pressure 127/98 H 120/98 H Pulse Oximetry Oxygen Delivery 07/27/24 18:00 07/27/24 18:03 07/27/24 18:06 Temperature 98.6 F 98.3 F 98.3 F Pulse Rate 99 96 103 H Respiratory Rate 15 16 16 Blood Pressure 136/75 122/89 132/92 H Pulse Oximetry 97 Oxygen Delivery 07/27/24 18:14 07/27/24 18:40 07/27/24 19:56 Temperature 98.3 F 98.1 F Pulse Rate 99 98 Respiratory Rate 16 16 Blood Pressure 136/75 125/97 H Pulse Oximetry Oxygen Delivery Room Air 07/27/24 20:00 07/27/24 20:00 07/28/24 05:00 Temperature 98.2 F 96.7 F L Pulse Rate 97 94 101 H Respiratory Rate 14 18 Blood Pressure 121/84 131/78 Pulse Oximetry 96 96 Oxygen Delivery Intake/Output Intake/Output: Intake & Output 07/25/24 07/26/24 07/27/24 07/28/24 23:59 23:59 23:59 23:59 Intake Total 6020.1 3665.4 0 Output Total 800 7550 0 Balance 5220.1 -3884.6 0 Meds/Results Medications: Active Medications Generic Name Dose Route Start Last Admin Trade Name Freq PRN Reason Stop Dose Admin Alteplase, Recombinant 2 mg 07/26/24 10:22 07/26/24 15:10 Alteplase 2 Mg Vial (Cathflo) IV PUSH 2 mg ONCE PRN Administration Line Occlusion Lipase/Protease/Amylase 2 cap 07/26/24 12:00 07/28/24 13:09 Lipase/Amylase/Protease 12,000 Units Cap PO Not Given TIDWM RAPHAEL Aspirin 81 mg 07/26/24 09:55 07/28/24 12:58 Aspirin 81 Mg Enteric Tablet PO 81 mg QAM RAPHAEL Administration Atorvastatin Calcium 80 mg 07/26/24 09:55 07/28/24 12:58 Atorvastatin 40 Mg Tablet PO 80 mg DAILY RAPHAEL Administration Dextrose 12.5 gm 07/26/24 05:33 07/26/24 12:13 Dextrose 50% 25 Gm/50 Ml Syringe IV PUSH 12.5 gm PRN PRN Administration Hypoglycemia Protocol Diphenhydramine HCl 25 mg 07/26/24 10:25 07/28/24 12:56 Diphenhydramine Hcl Inj 50 Mg/Ml Vial IV PUSH 25 mg Q4H PRN Administration Itching Enoxaparin Sodium 40 mg 07/26/24 09:55 07/28/24 12:58 Enoxaparin 40 Mg/0.4 Ml Syringe SUB-Q 40 mg DAILY RAPHAEL Administration Fenofibrate 160 mg 07/26/24 09:55 07/28/24 12:57 Fenofibrate 160 Mg Tablet PO 160 mg DAILY RAPHAEL Administration Glucagon 1 mg 07/26/24 05:33 Glucagon For Inj 1 Mg Vial IM PRN PRN Hypoglycemia Protocol Glucose 15 gm 07/26/24 05:33 Glucose Oral Gel 15 Gm Of Glucse In 37.5 Gm Tube PO PRN PRN Hypoglycemia Protocol Hydromorphone HCl 1 mg 07/26/24 09:40 07/28/24 12:59 Hydromorphone Hcl Inj (*Crx) 1 Mg/Ml Syr IV PUSH 1 mg Q3H PRN Administration Pain Rated 7-10 Dextrose 1,000 mls @ 100 mls/hr 07/26/24 05:33 Dextrose 5% 1,000 Ml IVPB PRN PRN Hypoglycemia Protocol Insulin Aspart 3 - 6 units 07/27/24 21:00 07/28/24 13:05 Insulin Aspart (*Bkc) 100 Units/Ml SUB-Q 3 units Q4HR RAPHAEL Administration Protocol Levothyroxine Sodium 100 mcg 07/28/24 06:30 07/28/24 06:08 Levothyroxine Sodium Inj 100 Mcg/5 Ml Vial IV PUSH 100 mcg DAILY@0630 RAPHAEL Administration Metformin HCl 1,000 mg 07/26/24 09:55 07/28/24 12:57 Metformin Hcl 500 Mg Tablet PO 1,000 mg BIDWM RAPHAEL Administration Metoclopramide HCl 5 mg 07/26/24 11:30 07/28/24 12:59 Metoclopramide Hcl 5 Mg Tablet PO 5 mg ACHS RAPHAEL Administration Ondansetron HCl 4 mg 07/26/24 09:40 07/28/24 09:18 Ondansetron Inj 4 Mg/2 Ml Vial IV PUSH 4 mg Q4H PRN Administration Nausea And Vomiting Pantoprazole Sodium 40 mg 07/26/24 09:55 07/28/24 09:18 Pantoprazole Sodium Iv 40 Mg Vial IV PUSH 40 mg QAM RAPHAEL Administration Ticagrelor 90 mg 07/26/24 09:55 07/28/24 12:59 Ticagrelor 90 Mg Tablet PO 90 mg Q12HR RAPHAEL Administration Labs Labs: Laboratory Results - last 24 hr 07/27/24 07/27/24 07/27/24 13:09 14:13 14:58 WBC RBC Hgb Hct MCV MCH MCHC RDW Plt Count MPV Sodium 134 L Potassium 5.2 H Chloride 106 Carbon Dioxide 14 L Anion Gap 14 H BUN < 2 L Creatinine 0.46 L Estim Creat Clear Calc 134 Estimated GFR > 60 Glucose 159 H POC Capillary Glucose 183 H 175 H Calcium 8.4 Phosphorus Magnesium Total Bilirubin AST ALT Alkaline Phosphatase Total Protein Albumin Triglycerides 07/27/24 07/27/24 07/27/24 14:59 16:11 17:10 WBC RBC Hgb Hct MCV MCH MCHC RDW Plt Count MPV Sodium Potassium Chloride Carbon Dioxide Anion Gap BUN Creatinine Estim Creat Clear Calc Estimated GFR Glucose POC Capillary Glucose 158 H 143 H 147 H Calcium Phosphorus Magnesium Total Bilirubin AST ALT Alkaline Phosphatase Total Protein Albumin Triglycerides 07/27/24 07/27/24 07/27/24 18:10 19:35 19:52 WBC RBC Hgb Hct MCV MCH MCHC RDW Plt Count MPV Sodium 138 Potassium 4.3 Chloride 107 Carbon Dioxide 16 L Anion Gap 15 H BUN < 2 L Creatinine 0.56 L Estim Creat Clear Calc 113 Estimated GFR > 60 Glucose 181 H POC Capillary Glucose 181 H 189 H Calcium 7.8 L Phosphorus Magnesium Total Bilirubin AST ALT Alkaline Phosphatase Total Protein Albumin Triglycerides 403 H 07/28/24 07/28/24 07/28/24 05:16 07:22 11:04 WBC 8.8 RBC 4.29 Hgb 12.6 Hct 38.7 MCV 90.2 MCH 29.4 MCHC 32.6 RDW 16.0 H Plt Count 227 MPV 9.2 Sodium 137 Potassium 4.2 Chloride 106 Carbon Dioxide 16 L Anion Gap 15 H BUN < 2 L Creatinine 0.51 L Estim Creat Clear Calc 123 Estimated GFR > 60 Glucose 164 H POC Capillary Glucose 186 H 201 H Calcium 8.5 Phosphorus 4.2 Magnesium 0.9 L Total Bilirubin 0.5 AST 15 ALT 11 Alkaline Phosphatase 27 L Total Protein 6.0 L Albumin 4.4 Triglycerides 587 H Quality VTE Prophylaxis VTE prophylaxis: pharmacologic ordered
[2024-07-28 14:44] VITALS: BP 111/78; PULSE 88; RESP 18; TEMP 35.8; O2SAT 98
[2024-07-28 16:15] LABS: Glucose Point of Care 144 mg/dl (65-105)
[2024-07-28] MEDS: MAGNESIUM SULF 4 GM/WATER100ML 4 GM/100 ML BAG IVPB (17:50)
[2024-07-28 20:08] LABS: Glucose Point of Care 186 mg/dl (65-105)
[2024-07-28 20:54] VITALS: BP 100/65; PULSE 100; RESP 13; TEMP 36.1; O2SAT 98
[2024-07-29] MEDS: HYDROmorphone HCL INJ (*CRX) 1 MG/ML SYR IV PUSH ×7 (00:11→21:19)
[2024-07-29] MEDS: diphenhydrAMINE HCl INJ 50 MG/ML VIAL 25 MG IV PUSH ×5 (04:42→21:20)
[2024-07-29 05:44] VITALS: BP 121/59; PULSE 94; RESP 13; TEMP 36.3; O2SAT 97
[2024-07-29] MEDS: METOCLOPRAMIDE HCL 5 MG TABLET PO ×4 (06:20→21:18)
[2024-07-29] MEDS: LEVOTHYROXINE SODIUM INJ 100 MCG/5 ML VIAL IV PUSH (06:20)
[2024-07-29 06:29] LABS: Basophils Percent Auto 0.4 % (0.2-1.2); Eosinophils Absolute Auto 0.1 K/mm3 (0-0.3); Eosinophils Percent Auto 1.2 % (0-4.4); Hematocrit 35.9 % (37.0-47.0); Hemoglobin 11.5 g/dL (12.0-15.0); Immature Granulocyte Absolute 0.07 K/mm3 (0.00-0.031); Immature Granulocyte Percent A 0.9 % (0-0.5); Lymphocytes Percent Auto 23.2 % (18.3-44.2); Mean Corpuscular Hemoglobin 29.9 pg (26-34); Mean Corpuscular Volume 93.2 fl (80-100); Mean Platelet Volume 9.2 fl (7.4-10.4); Monocytes Absolute Auto 0.5 K/mm3 (0.1-0.6); Monocytes Percent Auto 6.6 % (2.6-8.5); Neutrophils Absolute Auto 5.3 K/mm3 (1.3-6.7); Neutrophils Percent Auto 67.7 % (45.5-73.1); Platelet Count Result 213 k/mm3 (150-375); Red Blood Count 3.85 M/mm3 (4.2-5.4); Red Cell Distribution Width 16.3 % (11.5-14.5); White Blood Count 7.8 K/mm3 (4.5-10.0)
[2024-07-29 06:40] LABS: Alanine Aminotransferase 14 U/L (6-35); Albumin Level 4.2 g/dL (3.5-5.1); Alkaline Phosphatase 50 U/L (38-126); Anion Gap 14 mmol/L (4-12); Aspartate Amino Transferase 17 U/L (14-36); Bilirubin,Total 0.5 mg/dL (0.2-1.3); Blood Urea Nitrogen 4 mg/dL (7-17); Calcium 8.9 mg/dL (8.4-10.2); Carbon Dioxide 17 mmol/L (22-30); Chloride 105 mmol/L (98-107); Cholesterol 126 mg/dL (0-200); Estimated CRCL calculation 93 ml/min; Estimated Glomerular Filt Rate > 60; Glucose 181 mg/dL (65-110); Magnesium 1.6 mg/dL (1.6-2.3); Phosphorus 4.7 mg/dL (2.5-4.5); Sodium 136 mmol/L (137-145)
[2024-07-29 06:47] LABS: Triglycerides 1001 mg/dL (<150)
[2024-07-29 06:56] LABS: LDL Cholesterol Direct < 30 mg/dL
--- NOTE | 2024-07-29 07:20 | PC.NURSE ---
patient up using bedside commode patient refusing bed alarm at this time
[2024-07-29 08:27] LABS: Glucose Point of Care 184 mg/dl (65-105)
[2024-07-29] MEDS: ENOXAPARIN 40 MG/0.4 ML SYRINGE SUB-Q (08:49)
[2024-07-29] MEDS: metFORMIN HCL 500 MG TABLET 1000 MG PO ×2 (08:50→17:33)
[2024-07-29] MEDS: ASPIRIN 81 MG ENTERIC TABLET PO (08:50)
[2024-07-29] MEDS: ATORVASTATIN 40 MG TABLET 80 MG PO (08:50)
[2024-07-29] MEDS: LIPASE/AMYLASE/PROTEASE 12,000 UNITS CAP 2 CAP PO ×3 (08:50→17:33)
[2024-07-29] MEDS: FENOFIBRATE 160 MG TABLET PO (08:50)
[2024-07-29] MEDS: TICAGRELOR 90 MG TABLET PO ×2 (08:51→21:18)
[2024-07-29] MEDS: ONDANSETRON INJ 4 MG/2 ML VIAL IV PUSH ×4 (08:51→21:18)
[2024-07-29] MEDS: PANTOPRAZOLE SODIUM IV 40 MG VIAL IV PUSH (08:52)
--- NOTE | 2024-07-29 11:47 | PM.IMPN ---
Progress Note: A&P Assessment and Plan (1) Abdominal pain: Code(s): R10.9 - Unspecified abdominal pain Status: Acute Assessment and Plan: patient has chronic abdominal pain with intermittent exacerbation which is likely secondary to hypertriglyceridemia and chronic pancreatitis. In the past patient has been admitted the abdominal pain with normal lipase level. Lipase level was unable to be calculated at this time due to grossly lipemic blood. Her triglyceride level was also could not be measured Continue insulin infusion and w D5 IV fluids She received a session of plasmapheresis yesterday and or I spoke to brake press operator and will plan to do another session today Triglyceride level yesterday after plasmapheresis was still high. Check triglyceride level after today's session replace low potassium p.r.n. Dilaudid for pain control tolerating diet TG 1001, for plasmapheresis Nephrology informed (2) CAD (coronary artery disease): Code(s): I25.10 - Atherosclerotic heart disease of [place] coronary artery without angina pectoris Status: Acute Assessment and Plan: continue aspirin Brilinta statin (3) Hypertriglyceridemia: Code(s): E78.1 - Pure hyperglyceridemia Status: Chronic Assessment and Plan: see above (4) Type 2 diabetes mellitus: Qualifiers: Diabetes mellitus buttermaker continuous churn insulin use: with prison use Diabetes mellitus complication status: without complication Qualified Code(s): E11.9 - Type 2 diabetes mellitus without complications; Z79.4 - intermediate designer (current) use of insulin Code(s): E11.9 - Type 2 diabetes mellitus without complications Status: Chronic Assessment and Plan: patient is on insulin pump at home which is now off as patient is on insulin infusion. continue metformin and regular (5) Nausea & vomiting: Code(s): R11.2 - Nausea with vomiting, unspecified Status: Acute Assessment and Plan: P.r.n. Zofran (6) GERD (gastroesophageal reflux disease): Qualifiers: Esophagitis presence: esophagitis presence not specified Qualified Code(s): K21.9 - Gastro-esophageal reflux disease without esophagitis Code(s): K21.9 - Gastro-esophageal reflux disease without esophagitis Status: Acute Assessment and Plan: continue PPI (7) Chronic pancreatitis: Qualifiers: Pancreatitis type: unspecified pancreatitis type Qualified Code(s): K86.1 - Other chronic pancreatitis Code(s): K86.1 - Other chronic pancreatitis Status: Acute Assessment and Plan: resume Creon pills once a abdominal pain is better and patient is back on her diet (8) Hypothyroidism: Qualifiers: Hypothyroidism type: due to Jaed's thyroiditis Qualified Code(s): E03.8 - Other specified hypothyroidism; E06.3 - Autoimmune thyroiditis Code(s): E03.9 - Hypothyroidism, unspecified Status: Acute Assessment and Plan: continue levothyroxine TSH is high and T4 is very low. Patient claims compliance with the medication. She states that she takes every day with her other medications the morning. She is on 200 mics of levothyroxine and I am not sure if this is because of lack of absorption. I will change to IV for next few days and then increase the dose to 250 p.o. prior to discharge Plan DVT prophylaxis on Sq Lovenox Subjective Date/time seen: 07/29/24 11:47 Interval history: TG 1001 today Nephrology contacted for plasmapheresis Review of Systems Review of Systems: All systems reviewed & are unremarkable except as noted in HPI and below ( HPI) Exam Narrative: General: Pt is alert awake and in NAD Lungs/Chest: Trachea central Clear BS B/L, No crackles or wheezing. Port-A-Cath under skin on both side Cardiac: RRR. Normal S1 S2. No murmurs Circulation: Pedal pulses are intact and symmetrical. Abdomen: Normal bowel sounds.. Soft. Mild tenderness to palpation he and epigastric and left upper cord Extremities: No clubbing, cyanosis or edema. Warm : Pettit in place Neurologic: Follows commands. Moves all 4 extremities PERRL Skin: No Rash Const: General: comfortable and no acute distress Other: alert oriented female appears acute on chronically ill. lethargic HENMT: Mouth: Yes moist mucous membranes Eyes: General: appearance normal, both eyes and all related structures Pupils: Equal, round and reactive pupils present Neck: Neck: supple and no JVD Resp: Effort & Inspection: normal respiratory effort Auscultation: clear to auscultation bilaterally Cardio: Rate: regular rate Rhythm: regular rhythm GI: Auscultation: normal bowel sounds Other: obese Skin: General skin exam: normal color and no rashes or lesions noted Wounds: no wounds Neuro: Cranial nerves: Yes Equal, round and reactive pupils present Speech: normal speech Motor exam (neuro): 5/5 motor strength present throughout Sensory Exam: normal sensation Extrem: General: normal to inspection Psych: Mental Status: mental status grossly normal Objective Data Vital Signs Vital Signs: Vital Signs - 24 hr 07/28/24 14:44 07/28/24 20:54 07/29/24 05:44 Temperature 96.5 F L 97.0 F L 97.4 F L Pulse Rate 88 100 94 Respiratory Rate 18 13 13 Blood Pressure 111/78 100/65 121/59 L Pulse Oximetry 98 98 97 Intake/Output Intake/Output: Intake & Output 07/26/24 07/27/24 07/28/24 07/29/24 23:59 23:59 23:59 23:59 Intake Total 6020.1 3665.4 480 218 Output Total 800 7550 0 500 Balance 5220.1 -3884.6 480 -282 Meds/Results Medications: Active Medications Generic Name Dose Route Start Last Admin Trade Name Freq PRN Reason Stop Dose Admin Alteplase, Recombinant 2 mg 07/26/24 10:22 07/26/24 15:10 Alteplase 2 Mg Vial (Cathflo) IV PUSH 2 mg ONCE PRN Administration Line Occlusion Lipase/Protease/Amylase 2 cap 07/26/24 12:00 07/29/24 08:50 Lipase/Amylase/Protease 12,000 Units Cap PO 2 cap TIDWM RAPHAEL Administration Aspirin 81 mg 07/26/24 09:55 07/29/24 08:50 Aspirin 81 Mg Enteric Tablet PO 81 mg QAM RAPHAEL Administration Atorvastatin Calcium 80 mg 07/26/24 09:55 07/29/24 08:50 Atorvastatin 40 Mg Tablet PO 80 mg DAILY RAPHAEL Administration Dextrose 12.5 gm 07/26/24 05:33 07/26/24 12:13 Dextrose 50% 25 Gm/50 Ml Syringe IV PUSH 12.5 gm PRN PRN Administration Hypoglycemia Protocol Diphenhydramine HCl 25 mg 07/26/24 10:25 07/29/24 08:51 Diphenhydramine Hcl Inj 50 Mg/Ml Vial IV PUSH 25 mg Q4H PRN Administration Itching Enoxaparin Sodium 40 mg 07/26/24 09:55 07/29/24 08:49 Enoxaparin 40 Mg/0.4 Ml Syringe SUB-Q 40 mg DAILY RAPHAEL Administration Fenofibrate 160 mg 07/26/24 09:55 07/29/24 08:50 Fenofibrate 160 Mg Tablet PO 160 mg DAILY RAPHAEL Administration Glucagon 1 mg 07/26/24 05:33 Glucagon For Inj 1 Mg Vial IM PRN PRN Hypoglycemia Protocol Glucose 15 gm 07/26/24 05:33 Glucose Oral Gel 15 Gm Of Glucse In 37.5 Gm Tube PO PRN PRN Hypoglycemia Protocol Hydromorphone HCl 1 mg 07/26/24 09:40 07/29/24 08:52 Hydromorphone Hcl Inj (*Crx) 1 Mg/Ml Syr IV PUSH 1 mg Q3H PRN Administration Pain Rated 7-10 Dextrose 1,000 mls @ 100 mls/hr 07/26/24 05:33 Dextrose 5% 1,000 Ml IVPB PRN PRN Hypoglycemia Protocol Insulin Aspart 3 - 6 units 07/27/24 21:00 07/29/24 04:53 Insulin Aspart (*Bkc) 100 Units/Ml SUB-Q Not Given Q4HR RAPHAEL Protocol Levothyroxine Sodium 100 mcg 07/28/24 06:30 07/29/24 06:20 Levothyroxine Sodium Inj 100 Mcg/5 Ml Vial IV PUSH 100 mcg DAILY@0630 RAPHAEL Administration Metformin HCl 1,000 mg 07/26/24 09:55 07/29/24 08:50 Metformin Hcl 500 Mg Tablet PO 1,000 mg BIDWM RAPHAEL Administration Metoclopramide HCl 5 mg 07/26/24 11:30 07/29/24 06:20 Metoclopramide Hcl 5 Mg Tablet PO 5 mg ACHS RAPHAEL Administration Ondansetron HCl 4 mg 07/26/24 09:40 07/29/24 08:51 Ondansetron Inj 4 Mg/2 Ml Vial IV PUSH 4 mg Q4H PRN Administration Nausea And Vomiting Pantoprazole Sodium 40 mg 07/26/24 09:55 07/29/24 08:52 Pantoprazole Sodium Iv 40 Mg Vial IV PUSH 40 mg QAM RAPHAEL Administration Ticagrelor 90 mg 07/26/24 09:55 07/29/24 08:51 Ticagrelor 90 Mg Tablet PO 90 mg Q12HR RAPHAEL Administration Labs Labs: Laboratory Results - last 24 hr 07/28/24 07/28/24 07/29/24 16:10 19:56 06:21 WBC 7.8 RBC 3.85 L Hgb 11.5 L Hct 35.9 L MCV 93.2 MCH 29.9 MCHC 32.0 RDW 16.3 H Plt Count 213 MPV 9.2 Immature Gran % (Auto) 0.9 H Neut % (Auto) 67.7 Lymph % (Auto) 23.2 [place] % (Auto) 6.6 Eos % (Auto) 1.2 Baso % (Auto) 0.4 Lymph # (Auto) 1.80 [place] # (Auto) 0.5 Eos # (Auto) 0.1 Baso # (Auto) 0.0 Abs Immat Gran (auto) 0.07 H Absolute Neuts (auto) 5.3 Absolute Nucleated RBC 0.000 Nucleated RBC % 0.0 Sodium 136 L Potassium 4.0 Chloride 105 Carbon Dioxide 17 L Anion Gap 14 H BUN 4 L Creatinine 0.64 L Estim Creat Clear Calc 93 Estimated GFR > 60 Glucose 181 H POC Capillary Glucose 144 H 186 H Calcium 8.9 Phosphorus 4.7 H Magnesium 1.6 Total Bilirubin 0.5 AST 17 ALT 14 Alkaline Phosphatase 50 Total Protein 6.0 L Albumin 4.2 Triglycerides 1001 H Cholesterol 126 LDL Cholesterol Direct < 30 HDL Direct TNP 07/29/24 08:02 WBC RBC Hgb Hct MCV MCH MCHC RDW Plt Count MPV Immature Gran % (Auto) Neut % (Auto) Lymph % (Auto) [place] % (Auto) Eos % (Auto) Baso % (Auto) Lymph # (Auto) [place] # (Auto) Eos # (Auto) Baso # (Auto) Abs Immat Gran (auto) Absolute Neuts (auto) Absolute Nucleated RBC Nucleated RBC % Sodium Potassium Chloride Carbon Dioxide Anion Gap BUN Creatinine Estim Creat Clear Calc Estimated GFR Glucose POC Capillary Glucose 184 H Calcium Phosphorus Magnesium Total Bilirubin AST ALT Alkaline Phosphatase Total Protein Albumin Triglycerides Cholesterol LDL Cholesterol Direct HDL Direct Quality VTE Prophylaxis VTE prophylaxis: pharmacologic ordered
[2024-07-29 12:18] LABS: Glucose Point of Care 223 mg/dl (65-105)
[2024-07-29] MEDS: INSULIN ASPART (*BKC) 100 UNITS/ML SUB-Q ×3 (12:27→21:21)
[2024-07-29 14:00] VITALS: BP 112/77; PULSE 102; RESP 14; TEMP 36.1; O2SAT 99
[2024-07-29 16:49] LABS: Glucose Point of Care 215 mg/dl (65-105)
[2024-07-29 20:22] LABS: Glucose Point of Care 220 mg/dl (65-105)
[2024-07-29 21:31] VITALS: BP 107/60; PULSE 94; RESP 13; TEMP 36.4; O2SAT 97
[2024-07-30] MEDS: HYDROmorphone HCL INJ (*CRX) 1 MG/ML SYR IV PUSH ×6 (00:42→20:24)
[2024-07-30] MEDS: diphenhydrAMINE HCl INJ 50 MG/ML VIAL 25 MG IV PUSH ×5 (01:43→20:24)
[2024-07-30] MEDS: ONDANSETRON INJ 4 MG/2 ML VIAL IV PUSH ×5 (01:43→20:24)
[2024-07-30] MEDS: METOCLOPRAMIDE HCL 5 MG TABLET PO ×4 (05:14→20:24)
[2024-07-30] MEDS: LEVOTHYROXINE SODIUM INJ 100 MCG/5 ML VIAL IV PUSH (05:14)
[2024-07-30 05:44] LABS: Ammonia < 9 umol/L (9-30)
[2024-07-30 05:48] VITALS: BP 119/70; PULSE 87; RESP 16; TEMP 36.3; O2SAT 99
[2024-07-30 06:17] LABS: Basophils Percent Auto 0.3 % (0.2-1.2); Eosinophils Absolute Auto 0.1 K/mm3 (0-0.3); Eosinophils Percent Auto 1.3 % (0-4.4); Hematocrit 34.4 % (37.0-47.0); Immature Granulocyte Absolute 0.06 K/mm3 (0.00-0.031); Lymphocytes Absolute Auto 1.78 K/mm3 (0.9-3.2); Lymphocytes Percent Auto 29.7 % (18.3-44.2); Mean Corpuscular Hemoglobin 29.1 pg (26-34); Mean Platelet Volume 9.6 fl (7.4-10.4); Monocytes Absolute Auto 0.4 K/mm3 (0.1-0.6); Neutrophils Absolute Auto 3.6 K/mm3 (1.3-6.7); Neutrophils Percent Auto 60.7 % (45.5-73.1); Platelet Count Result 212 k/mm3 (150-375); Red Blood Count 3.78 M/mm3 (4.2-5.4); Red Cell Distribution Width 15.8 % (11.5-14.5)
[2024-07-30 06:39] LABS: Albumin Level 4.3 g/dL (3.5-5.1); Alkaline Phosphatase 52 U/L (38-126)
[2024-07-30 06:40] LABS: Alanine Aminotransferase 11 U/L (6-35); Anion Gap 13 mmol/L (4-12); Aspartate Amino Transferase 16 U/L (14-36); Bilirubin,Total 0.8 mg/dL (0.2-1.3); Blood Urea Nitrogen 5 mg/dL (7-17); Carbon Dioxide 21 mmol/L (22-30); Chloride 103 mmol/L (98-107); Estimated CRCL calculation 88 ml/min; Estimated Glomerular Filt Rate > 60; Glucose 159 mg/dL (65-110); Magnesium 1.1 mg/dL (1.6-2.3); Phosphorus 4.2 mg/dL (2.5-4.5); Potassium 3.7 mmol/L (3.4-5.0); Sodium 137 mmol/L (137-145)
[2024-07-30 06:47] LABS: Triglycerides 634 mg/dL (<150)
[2024-07-30 07:37] LABS: Glucose Point of Care 177 mg/dl (65-105)
[2024-07-30] MEDS: PANTOPRAZOLE SODIUM IV 40 MG VIAL IV PUSH (09:06)
[2024-07-30] MEDS: TICAGRELOR 90 MG TABLET PO ×2 (09:07→20:24)
[2024-07-30] MEDS: metFORMIN HCL 500 MG TABLET 1000 MG PO ×2 (09:07→16:23)
[2024-07-30] MEDS: ENOXAPARIN 40 MG/0.4 ML SYRINGE SUB-Q (09:07)
[2024-07-30 09:08] VITALS: RESP 16; O2SAT 99
[2024-07-30] MEDS: ASPIRIN 81 MG ENTERIC TABLET PO (09:08)
[2024-07-30] MEDS: ATORVASTATIN 40 MG TABLET 80 MG PO (09:08)
[2024-07-30] MEDS: FENOFIBRATE 160 MG TABLET PO (09:08)
[2024-07-30] MEDS: LIPASE/AMYLASE/PROTEASE 12,000 UNITS CAP 2 CAP PO ×2 (12:04→16:23)
[2024-07-30 12:12] LABS: Glucose Point of Care 165 mg/dl (65-105)
[2024-07-30 14:00] VITALS: BP 112/57; PULSE 96; RESP 14; TEMP 36.2; O2SAT 100
[2024-07-30 17:16] LABS: Glucose Point of Care 199 mg/dl (65-105)
[2024-07-30 20:20] VITALS: BP 126/72; PULSE 92; RESP 16; TEMP 36.2; O2SAT 100
[2024-07-30] MEDS: INSULIN ASPART (*BKC) 100 UNITS/ML SUB-Q (20:46)
[2024-07-30 20:54] LABS: Glucose Point of Care 207 mg/dl (65-105)
[2024-07-31] MEDS: diphenhydrAMINE HCl INJ 50 MG/ML VIAL 25 MG IV PUSH ×4 (00:14→12:19)
[2024-07-31] MEDS: HYDROmorphone HCL INJ (*CRX) 1 MG/ML SYR IV PUSH ×5 (00:14→15:29)
[2024-07-31] MEDS: ONDANSETRON INJ 4 MG/2 ML VIAL IV PUSH ×5 (00:15→16:01)
[2024-07-31 04:05] VITALS: BP 111/65; PULSE 97; RESP 20; TEMP 35.7; O2SAT 97
[2024-07-31] MEDS: LEVOTHYROXINE SODIUM INJ 100 MCG/5 ML VIAL IV PUSH (05:27)
[2024-07-31] MEDS: METOCLOPRAMIDE HCL 5 MG TABLET PO ×2 (05:28→11:31)
[2024-07-31 05:45] LABS: Hematocrit 36.3 % (37.0-47.0); Hemoglobin 11.3 g/dL (12.0-15.0); Mean Corpuscular HGB Conc 31.1 g/dl (32-36); Mean Corpuscular Hemoglobin 29.4 pg (26-34); Mean Corpuscular Volume 94.3 fl (80-100); Mean Platelet Volume 9.6 fl (7.4-10.4); Platelet Count Result 232 k/mm3 (150-375); Red Blood Count 3.85 M/mm3 (4.2-5.4); Red Cell Distribution Width 15.8 % (11.5-14.5); White Blood Count 6.6 K/mm3 (4.5-10.0)
[2024-07-31 06:25] LABS: Alanine Aminotransferase 18 U/L (6-35); Albumin Level 4.4 g/dL (3.5-5.1); Alkaline Phosphatase 59 U/L (38-126); Anion Gap 13 mmol/L (4-12); Aspartate Amino Transferase 24 U/L (14-36); Bilirubin,Total 0.7 mg/dL (0.2-1.3); Blood Urea Nitrogen 7 mg/dL (7-17); Calcium 9.1 mg/dL (8.4-10.2); Carbon Dioxide 24 mmol/L (22-30); Chloride 102 mmol/L (98-107); Estimated CRCL calculation 68 ml/min; Estimated Glomerular Filt Rate > 60; Glucose 211 mg/dL (65-110); Phosphorus 4.2 mg/dL (2.5-4.5); Potassium 3.7 mmol/L (3.4-5.0); Sodium 139 mmol/L (137-145)
[2024-07-31 07:44] LABS: Glucose Point of Care 178 mg/dl (65-105)
[2024-07-31] MEDS: ASPIRIN 81 MG ENTERIC TABLET PO (08:30)
[2024-07-31] MEDS: FENOFIBRATE 160 MG TABLET PO (08:30)
[2024-07-31] MEDS: LIPASE/AMYLASE/PROTEASE 12,000 UNITS CAP 2 CAP PO ×2 (08:30→11:31)
[2024-07-31] MEDS: ATORVASTATIN 40 MG TABLET 80 MG PO (08:31)
[2024-07-31] MEDS: ENOXAPARIN 40 MG/0.4 ML SYRINGE SUB-Q (08:31)
[2024-07-31] MEDS: PANTOPRAZOLE SODIUM IV 40 MG VIAL IV PUSH (08:31)
[2024-07-31] MEDS: TICAGRELOR 90 MG TABLET PO (08:32)
[2024-07-31] MEDS: metFORMIN HCL 500 MG TABLET 1000 MG PO (08:35)
--- NOTE | 2024-07-31 11:40 | P.DS_ITS ---
DS: Admitting Diagnosis Discharge Date 07/31/24 Admitting Diagnosis Abdominal pain DS: Discharge Diagnosis Discharge Diagnosis (1) Acute on chronic pancreatitis: Code(s): K85.90 - Acute pancreatitis without necrosis or infection, unspecified; K86.1 - Other chronic pancreatitis Status: Acute DS: Summary Hospital Course Hospital Course: Patient is a 48yo female with hx of hyperTG, pancreatitis and DM who presented to the emergency department with complaints of ABD pain radiating to her back. Patient has past medical hx of hypertriglyceridemia requiring insulin infusion and plasmapheresis with last episode being 05/2024. Patient presented to the emergency department with worsening abdominal pain for the last 2-3 days. Patient received use multiple +of pheresis treatments outpatient she has had multiple inpatient hospitalizations here at [facility] secondary to her hypertriglyceridemia which leads to an acute exacerbation pancreatitis. Initial findings in the emergency department showed triglycerides too to calculate due to blood being grossly lipemic. At this time patient was started on an insulin drip in the emergency department and patient was admitted to ICU for further management to also have consult to Nephrology plasmapheresis. hypertriglyceridemia with TG 1615, Nephrology was consulted and patient underwent plasmapheresis and TG today is 525. In addition, she is tolerating foods at baseline. F/u with PCP in 3-5 days F/u with nephrology as instructed Time Spent with Patient Time attestation: Total time spent providing and/or coordinating discharge services: DS: Data Data Completed and Pending Labs on day of discharge: Labs from last 24 hours 07/31/24 07/31/24 07/30/24 07:28 05:14 20:19 WBC 6.6 RBC 3.85 L Hgb 11.3 L Hct 36.3 L MCV 94.3 MCH 29.4 MCHC 31.1 L RDW 15.8 H Plt Count 232 MPV 9.6 Sodium 139 Potassium 3.7 Chloride 102 Carbon Dioxide 24 Anion Gap 13 H BUN 7 Creatinine 0.79 Estim Creat Clear Calc 68 Estimated GFR > 60 Glucose 211 H POC Capillary Glucose 178 H 207 H Calcium 9.1 Phosphorus 4.2 Magnesium 1.0 L Total Bilirubin 0.7 AST 24 ALT 18 Alkaline Phosphatase 59 Total Protein 6.0 L Albumin 4.4 Triglycerides > 525 H 07/30/24 07/30/24 17:13 12:01 WBC RBC Hgb Hct MCV MCH MCHC RDW Plt Count MPV Sodium Potassium Chloride Carbon Dioxide Anion Gap BUN Creatinine Estim Creat Clear Calc Estimated GFR Glucose POC Capillary Glucose 199 H 165 H Calcium Phosphorus Magnesium Total Bilirubin AST ALT Alkaline Phosphatase Total Protein Albumin Triglycerides Preliminary micro results at discharge 07/26/24 11:46 Blood Culture - Preliminary Blood 07/26/24 11:43 Blood Culture - Preliminary Blood Discharge Plan Discharge Attending physician on discharge: Юлия Carrion Consulting providers: Betty Sweet; Radames Mcgrath; Eli Kaminski Discharging Clinician: Юлия Carrion Anticipated Discharge Date/Time: 07/31/24 11:24 Patient Disposition: Home, Self-Care Activity: as tolerated Diet: as tolerated Patient Instructions: Antibiotic Form Patient Language: Yakut Stand Alone Forms: General Discharge Information Follow-up/Referrals: Jose Zuniga APRN [Primary Care Provider] - (F/u with PCP in 3-5 days ) Eli Kaminski MD [Physician] - (F/u with Nephrology as instructed) Discharge Medications: New oxycodone 10 mg tablet 10 mg PO Q8H PRN (Reason: pain) Qty: 12 0RF Continued metformin 500 mg tablet 1,000 mg PO BID Qty: 180 1RF Rx Instructions: with morning & evening meals pantoprazole [Protonix] 40 mg tablet,delayed release (DR/EC) 40 mg PO BID Qty: 30 0RF levothyroxine 200 mcg tablet 200 mcg PO DAILY Creon 36,000-114,000- 180,000 unit capsule,delayed release(DR/EC) 2 cap PO TIDWMEAL Rx Instructions: Take 2 capsules with meals and 1 capsule with any snacks. aspirin 81 mg Tablet,Delayed Release (Dr/Ec) 81 mg PO QAM Qty: 30 0RF citalopram 40 mg tablet 40 mg PO DAILY Rx Instructions: TAKE 1 TABLET BY MOUTH EVERY DAY bupropion HCl 150 mg tablet sustained-release 12 hr 150 mg PO HS ondansetron 4 mg tablet,disintegrating 4 mg PO Q8H PRN (Reason: nausea and vomiting) Qty: 10 0RF insulin aspart U-100 [Novolog U-100 Insulin aspart] 100 unit/mL solution See Rx Instructions .ROUTE .COMPLEX Rx Instructions: infused via insulin pump metoprolol succinate 25 mg tablet extended release 24 hr 12.5 mg PO DAILY docusate sodium 100 mg Capsule 100 mg PO Q12HR PRN (Reason: constipation) Qty: 20 0RF metoclopramide HCl 5 mg tablet 5 mg PO TIDWM cyclobenzaprine 10 mg Tablet 10 mg PO Q8HR 14 Days Qty: 42 0RF Brilinta 90 mg tablet 90 mg PO BID Qty: 180 0RF (DME) pen needle, diabetic [BD Ultra-Fine Diandra Pen Needle] 32 gauge x 5/32 needle See Rx Instructions .ROUTE .MEDSUPPLY Qty: 1200 12RF Rx Instructions: 4 times daily (DME) insulin syringe-needle U-100 [BD Insulin Syringe Ultra-Fine] 0.3 mL 31 gauge x 5/16 syringe See Rx Instructions .ROUTE .MEDSUPPLY Qty: 100 12RF Rx Instructions: 4 times a day atorvastatin 80 mg tablet 80 mg PO HS Qty: 90 1RF fenofibrate 160 mg tablet 160 mg PO DAILY Qty: 90 1RF trazodone 100 mg tablet 200 mg PO HS Qty: 180 1RF lorazepam 1 mg tablet 1 mg PO QHS PRN (Reason: sleep) Qty: 90 0RF Date of admission: 07/27/24 09:29 Primary Care Provider: Jose Zuniga Admitting Provider: Brynn Remy Attending physician on admission: Юлия Carrion Condition: Stable
[2024-07-31 11:46] LABS: Triglycerides 995 mg/dL (<150)
[2024-07-31 11:48] LABS: Glucose Point of Care 211 mg/dl (65-105)
[2024-07-31] MEDS: INSULIN ASPART (*BKC) 100 UNITS/ML SUB-Q (12:16)
[2024-07-31 14:00] VITALS: BP 113/65; PULSE 90; RESP 16; TEMP 36.3; O2SAT 93
--- NOTE | 2024-08-03 12:15 | PCCDE ---
08/03/24: Courtesy follow up message left including direct call back number. USAMA
== END 2024-07-31 17:28 | disposition home or self-care (01) | DRG 440 ==
LOC: ANHED 07-26 06:00 → ANHICU 07-26 07:28 → ANH3MEDSUR 07-27 22:51
PROVIDERS: Internal Medicine; Admitting Provider Internal Medicine; Emergency Provider Emergency Medicine; PCP Nurse Practitioner; Visit Provider Internal Medicine
DX: K85.90 Acute pancreatitis without necrosis or infection, unspecified (principal); K86.1 Other chronic pancreatitis; E78.1 Pure hyperglyceridemia; E78.3 Hyperchylomicronemia; E11.9 Type 2 diabetes mellitus without complications; I25.10 Atherosclerotic heart disease of native coronary artery without angina pectoris; E28.2 Polycystic ovarian syndrome; K21.9 Gastro-esophageal reflux disease without esophagitis; F41.9 Anxiety disorder, unspecified; E06.3 Autoimmune thyroiditis; F17.210 Nicotine dependence, cigarettes, uncomplicated; Z90.49 Acquired absence of other specified parts of digestive tract; Z79.4 Long term (current) use of insulin; Z95.5 Presence of coronary angioplasty implant and graft
CPT/HCPCS: 36415; 36514; 80048; 80053; 80061; 81001; 82140; 82948; 83735; 84100; 84439; 84443; 84478; 85025; 85027; 87040; 87641; 96361; 96374; 96375; 99285; A9270; G0378; J0613; J0650; J1171; J1200; J1644; J1650; J1815; J2405; J2470; J2997; J3475; J3480; J7030; J7040; P9045

== ENCOUNTER 2024-08-17 17:57 | Inpatient (IN) | payer MEDICARE, SELFPAY ==
--- NOTE | ~2024-08-17 | CT_ITS ---
EXAMINATION: CT abdomen pelvis w con DATE: 08/17/2024 21:49 INDICATION: abdominal pain, hx pancreatitis TECHNIQUE: Computed tomography (CT) of the abdomen and pelvis was performed with 100 mL Omnipaque-350 intravenous contrast. Automated exposure control and iterative reconstruction technique were employe d. The dose-length product was 863.50 mGy-cm. COMPARISON: 06/07/2024. FINDINGS: Lower thorax: Coronary artery calcification/stenting. Liver: Enlarged. Diffuse fatty infiltration. Biliary/Gallbladder: Gallbladder is normal. No bile duct dilation. Pancreas: No mass or duct dilation. Spleen: Stable cyst or cystic fluid collection at the tip of the spleen. Adrenals:No mass. Kidneys: No suspicious mass or obstructing stone. Inferior malrotation of the left kidney. Mild left inferior pelviectasis and caliectasis. 1 cm left lower pole hemorrhagic/proteinaceous cyst. Subcentim eter hypodensities that are too small to characterize but most likely represent cysts. Punctate left lower pole calcification. GI tract: No small or large bowel dilation. Appendix not confidently visualized. Mesentery/Peritoneum: No ascites, mass, or free air. Retroperitoneum: No mass. Atherosclerotic calcifications of intra-abdominal arterial vessels. Pelvis: Normal urinary bladder. Absent uterus. Normal bilateral ovaries.. Soft Tissues: Soft tissues and body wall unremarkable. Bones: No acute osseous finding. IMPRESSION: Hepatomegaly with steatosis. No CT evidence of pancreatitis. Inferior malrotation of the left kidney, with chronic mild pelviectasis and caliectasis, likely refle cting some degree of chronic UPJ obstruction, unchanged. Reviewed, dictated and finalized at location K. IMPRESSION: Hepatomegaly with steatosis. No CT evidence of pancreatitis. Inferior malrotation of the left kidney, with chronic mild pelviectasis and nirmal iectasis, likely reflecting some degree of chronic UPJ obstruction, unchanged.
--- OUTSIDE RECORDS SUMMARY | 2024-08-17 18:25 | XMS_ITS | Encounter Summary ---
Author Organization [facility] Address 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 Gender Identity Not on file Sexual [...] and Vascular - [place] [address] [place] [address] Marlys Mayer MD [address] [place] [address] documented as of this encounter Visit Diagnoses Not on filedocumented in this encounter Additional Health Concerns Infection Onset Date Last Indicated Resolved Time R/O GI Pathogen 09/19/2023 09/19/2023 09/21/2023 7 :33 AM CDT documented as of this encounter Care Teams Machine Pecan Gatherer Relationship Specialty Start Date End Date Guerrero Middleton PA-C PCP - General Physician Toll Testboard Worker 02/13/18 documented as of this encounter
--- OUTSIDE RECORDS SUMMARY | 2024-08-17 18:25 | XMS_ITS | Encounter Summary ---
Author Organization [facility] Address 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 Gender Identity Not on file Sexual [...] and Vascular - [address] [place] [address] Marlys Mayer MD [address] [place] [address] documented as of this encounter Visit Diagnoses Not on filedocumented in this encounter Additional Health Concerns Infection Onset Date Last Indicated Resolved Time R/O GI Pathogen 09/19/2023 09/19/2023 09/21/2023 7 :33 AM CDT documented as of this encounter Care Teams Experimental Preflight Mechanic Relationship Specialty Start Date End Date Guerrero Middleton PA-C PCP - General Physician Night Nurse 02/13/18 documented as of this encounter
--- OUTSIDE RECORDS SUMMARY | 2024-08-17 18:25 | XMS_ITS | Encounter Summary ---
Author Organization [facility] Address 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 Gender Identity Not on file Sexual [...] [facility] [address] [place] [address] Marlys Mayer MD [address] [place] [address] documented as of this encounter Visit Diagnoses Not on filedocumented in this encounter Additional Health Concerns Infection Onset Date Last Indicated Resolved Time R/O GI Pathogen 09/19/2023 09/19/2023 09/21/2023 7 :33 AM CDT documented as of this encounter Care Teams Boat Master Relationship Specialty Start Date End Date Guerrero Middleton PA-C PCP - General Physician Cardiac Rehab Nurse 02/13/18 documented as of this encounter
--- OUTSIDE RECORDS SUMMARY | 2024-08-17 18:25 | XMS_ITS | Clinical Summary ---
Author Organization [facility] Address [address] [place] [address] Care Team Providers Care Human Resources Records Clerk Name Role Phone Mauri Jaime MD Primary Care Provider [phone] Guerrero Middleton PA Unavailable [phone] Allergies Active Allergy Reactions Criticality Noted Date [...] tablet TAKE 1 TABLET BY MOUTH EVERY REFERENCE LIBRARY ASSISTANT 022 Active fenofibrate (TRIGLIDE) 160 mg tablet [...] on file Legal Sex Female 5:05 AM LUMBER PILER OPERATOR Gender Identity Not on file Sexual Orientation Not on file Obstetrics History Last Filed Vital Signs Vital Sign Reading Time Taken Comments Blood Pressure 101/62 06/05/2023 11:38 AM LUMBER PILER OPERATOR Pulse 76 06/05/2023 11:38 AM LUMBER PILER OPERATOR Temperature 36.4 C (97.5 F) 06/05/2023 10:35 AM LUMBER PILER OPERATOR Respiratory Rate 22 06/05/2023 11:38 AM LUMBER PILER OPERATOR Oxygen Saturation 94% 06/05/2023 11:38 AM LUMBER PILER OPERATOR Inhaled Oxygen Concentration - - Weight 81.6 kg (180 lb) 06/05/2023 8:58 AM LUMBER PILER OPERATOR Height 165.1 cm (5' 5 ) 06/05/2023 8:58 AM LUMBER PILER OPERATOR Body Mass Index 29.95 06/05/2023 8:58 AM LUMBER PILER OPERATOR Plan of Treatment Health Maintenance Due [...] 03/04/2021, 07/20/2020, Additional history exists Influenza Vaccine (Season Ended) 2024 03/08/2023, 04/09/2022, 03/04/2021, Additional history exists Insurance [facility] Care Teams Human Resources Records Clerk Relationship Specialty Start Date End Date Mauri Jaime MD [address] [facility] [address] [place] [address] PCP - General Internal Medicine 05/28/23 Guerrero Middleton PA [address] [facility] [address] [place] [address] 05/28/23
--- OUTSIDE RECORDS SUMMARY | 2024-08-17 18:25 | XMS_ITS | Clinical Summary ---
Author Organization [facility] Address [address] [address] Phone Care Team Providers Care Client Services Administrator Name Role Phone Jose G Palmer MD Unavailable [phone] Guerrero Middleton Primary Care Provider Social History [...] to complete this topic Insurance Care Teams Client Services Administrator Relationship Specialty Start Date End Date Guerrero Middleton PAC [address] [place] [address] PCP - General Physician Morphology Teacher 12/10/16 Jose G Palmer MD Consulting Physician Gastroenterology 12/10/16
--- OUTSIDE RECORDS SUMMARY | 2024-08-17 18:25 | XMS_ITS | Clinical Summary ---
Author Organization [facility] Address [address] [place] [address] Phone Care Team Providers Care Boat Person Name Role Phone Guerrero Middleton PA-C Primary [...] 48h post LHC 4 Active Blood-Glucose Sensor ([employer] G7 Sensor) Device 4 Active buPROPion HCL [...] be different from the original. Marlys Mayer MD--Him Analyst ([facility] @ ) Problem [...] Encounters Date Type Department Care Team Description 08/11/2024 Abstract [facility] At [address] [place] [address] Marlys Mayer MD 06/30/2024 External Device Data STL ABSTRACTION Provider, Abstract 06/02/2024 External Device Data STL ABSTRACTION Provider, Abstract 06/02/2024 Abstract [facility] At [address] [place] [address] Marlys Mayer MD 06/02/2024 Telephone [facility] At [address] [facility] [address] [place] [address] Marlys Mayer MD Medical Records 05/27/2024 External [...] on file Legal Sex Female 6:07 AM CLOTH HANDLER Gender Identity Not on file Sexual Orientation Not on file Occupation Industry Job Start Date Job End Date Not on file Not on file Not on file Not on file Last Filed Vital Signs Vital Sign Reading Time Taken Comments Blood Pressure 112/70 04/20/2024 3:12 PM CLOTH HANDLER Pulse 103 04/20/2024 3:12 PM CLOTH HANDLER Temperature 36.5 C (97.7 F) 11/29/2023 10:58 AM CDT Respiratory Rate 21 11/29/2023 6:15 PM CDT Oxygen Saturation 96% 04/20/2024 3:12 PM CLOTH HANDLER Inhaled Oxygen Concentration - - Weight 86.6 kg (191 lb) 04/20/2024 3:12 PM CLOTH HANDLER Height 165.1 cm (5' 5 ) 04/20/2024 3:12 PM CLOTH HANDLER Body Mass Index 31.78 04/20/2024 3:12 PM CLOTH HANDLER Plan of Treatment Upcoming Encounters Date Type Department Care Team (Late st Contact Info) Description 09/14/2024 3:00 PM CDT Office Visit [facility] Heart and Vascular - [facility] [address] [place] [address] Marlys Mayer MD [address] [place] [address] Health Maintenance Due Date Last Done Comments DIABETES ANNUAL RETINAL EXAM 11/24/1993 DIABETES MICROALBUMIN ANNUAL SCREEN 11/24/1993 DTAP/TDAP/TD VACCINES (1 - Tdap) 11/24/1994 HEPATITIS B VACCINES (1 of 3 - 19+ 3-dose series) 11/24/1994 HPV/Cotest (21-29) 11/24/1996 CERVICAL CANCER SCREENING 11/24/2005 HPV/Cotest (30-65) 11/24/2005 PAP SMEAR 11/24/2005 BREAST CANCER SCREENING 2015 COLORECTAL SCREENING 11/24/2020 Colorectal Cancer Screening 11/24/2020 FIT-DNA Q 3 years 11/24/2020 FIT/FOBT Q 1 year 11/24/2020 Flex Sig/CT Colonography Q 5 years 11/24/2020 DIABETES ANNUAL FOOT EXAM 05/04/2021 05/04/2020 INFLUENZA VACCINE (#1) 2023 0, 02/02/2019, 02/12/2018, Additional history exists DIABETES HBA1C Q 6 MONTHS 03/20/20242023, 08/24/2021, 07/12/2020, Additional history exists LDL CHOLESTEROL ANNUAL 09/18/2024 4, 08/25/2021, 02/01/2019, Additional history exists Medical Devices Implanted Type Area Promotions Coordinator Device Identifier Shelf Expiration Date Model / Serial / Lot Cath Hemodlys Glidespath 23cm [id number] Implanted:Qty : 1 on 04/10/2018 by Kayla Sheffield MD Catheter CR BARD- [employer] [id number] 08/27/2019 [id number] / / [id number] Description:14.5fr x 23cm; R IJ Port-10/29/2018 Implanted:Qty : 2 on 10/29/2018 by Laverne Willoughby MD Explanted:Qty : 1 on 02/18/2019 by Michael Powell MD Port Right: Chest Wall CR BARD- ACCESS SYS 07/28/2019 / / [id number] Description:two 9.6fr fower flow apheresis ports placed by Dr. Willoughby Port- 0 Implanted:Qty : 1 on 05/11/2019 by Alfa Forrest MD Port Left: Chest Wall CR BARD- ACCESS SYS 08/26/2020 / / [id number] Stent Synergy Xd 4.0x12mm Evrlms Elut [id number] - [id number] Implanted:Qty : 1 on 11/29/2023 by Miguel Lewis MD at [facility] Stent N/A: Coronary [employer] [id number] 03/19/2024 [id number] / / [id number] Procedures Procedure Name Priority Date/Time Associated Diagnosis Comments LDL CHOLESTEROL, DIRECT Stat 09/19/2023 12:59 AM CDT HEMOGLOBIN A1C Routine 09/18/2023 10:18 PM CDT from Last 3 Months or Most Recently Relevant to Health Maintenance Results * LDL CHOLESTEROL, DIRECT (09/19/2023 12:59 AM CDT) LDL CHOLESTEROL, DIRECT 47 <100 mg/dL 09/19/2023 5:52 AM CDT [facility] Blood Venipuncture / Unknown 09/19/2023 12:59 AM CDT 09/19/2023 1:09 AM CDT Narrative [facility] - 09/19/2023 5:52 AM CDT LDL [...] ORDERABLES Fin al Result Performing Organization Address [facility]/ZIP Co de Phone Number [facility] [employer] [facility]# [id number] [address] [place] [address] * (ABNORMAL) HEMOGLOBIN A1C (09/18/2023 10:18 PM CDT) HEMOGLOBIN A1C 9.7(H) <5.7 % 09/19/2023 10:59 AM CDT [employer] [facility] EST. AVG GLUCOSE, A1C 232 mg/dL 09/19/2023 10:59 AM CDT [facility] [employer] [facility] Blood Venipuncture / Unknown 09/18/2023 10:18 PM CDT 09/18/2023 10:26 PM CDT Narrative [facility] - 09/19/2023 10:59 AM CDT HGB A1C INTERPRETATION NORMAL: <5.7% PRE-DIABETES: 5.7 - 6.4% DIABETES: 6.5% OR GREATER Herlinda Mederos DO CHEMISTRY ORDERABLES Final Resul t Performing Organization Address [facility] de Phone Number [facility] [employer] [facility]# [id number] [address] [place] [address] from Last 3 Months or Most Recently Relevant to Health Maintenance Insurance RX AETNA Medicare Part D RX MED[employer] PLANS (INTERNAL) [facility] RX [employer] PLANS (INTERNAL) [place] [address] Advance Directives For more information, please contact: [phone] * Full Code (Latest Code Status on [...] 12:11 AM 01/02/2021 4:26 PM Care Teams Boat Person Relationship Specialty Start Date End Date Guerrero Middleton PA-C PCP - General Physician Skip Hoist Engineer 02/13/18
--- OUTSIDE RECORDS SUMMARY | 2024-08-17 18:25 | XMS_ITS | Encounter Summary ---
Author Organization [facility] Address [address] [place] [address] Care Team Providers Care Terminal Block Assembler Name Role Phone Guerrero Middleton PA-C Primary Care Provide r Encounter Details Date Type Department Care Team (Late st Contact Info) Description 12/08/2021 Telephone [facility] Services [facility] [address] [place] [address] Phoenix Riddle MD [address] [facility] [place] [address] Social History Tobacco Use Types [...] on file Legal Sex Female 6:07 AM BILLET SHEARER Gender Identity Not on file Sexual Orientation [...] [facility] [address] [place] [address] Marlys Mayer MD [address] [place] [address] documented as of this encounter Visit Diagnoses Not on filedocumented in this encounter Additional Health Concerns Infection Onset Date Last Indicated Resolved Time R/O GI Pathogen 09/19/2023 09/19/2023 09/21/2023 7 :33 AM CDT documented as of this encounter Care Teams Terminal Block Assembler Relationship Specialty Start Date End Date Guerrero Middleton PA-C PCP - General Physician Real Estate Marketing Coordinator 02/13/18 documented as of this encounter
--- OUTSIDE RECORDS SUMMARY | 2024-08-17 18:25 | XMS_ITS | Encounter Summary ---
Author Organization [facility] Address 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 Gender Identity Not on file Sexual Orientation [...] and Vascular - [place] [address] [place] [address] Marlys Mayer MD [address] [place] [address] documented as of this encounter Visit Diagnoses Not on filedocumented in this encounter Additional Health Concerns Infection Onset Date Last Indicated Resolved Time R/O GI Pathogen 09/19/2023 09/19/2023 09/21/2023 7 :33 AM CDT documented as of this encounter Care Teams Finisher Screwdown Relationship Specialty Start Date End Date Guerrero Middleton PA-C PCP - General Physician Otr Company Truck Driver 02/13/18 documented as of this encounter
--- OUTSIDE RECORDS SUMMARY | 2024-08-17 18:25 | XMS_ITS | Referral Summary ---
Author Organization [facility] Address [address] [place] [address] Care Team Providers Care Unit Receptionist Name Role Phone Mauri Jaime MD Primary Care Provider [phone] Guerrero Middlteon PA Unavailable [phone] Allergies Active Allergy Reactions Criticality Noted Date [...] tablet TAKE 1 TABLET BY MOUTH EVERY NATURAL FOODS CLERK 022 Active fenofibrate (TRIGLIDE) 160 mg tablet [...] on file Legal Sex Female 5:05 AM CLAY MODELER Gender Identity Not on file Sexual Orientation Not on file Last Filed Vital Signs Vital Sign Reading Time Taken Comments Blood Pressure 101/62 06/05/2023 11:38 AM CLAY MODELER Pulse 76 06/05/2023 11:38 AM CLAY MODELER Temperature 36.4 C (97.5 F) 06/05/2023 10:35 AM CLAY MODELER Respiratory Rate 22 06/05/2023 11:38 AM CLAY MODELER Oxygen Saturation 94% 06/05/2023 11:38 AM CLAY MODELER Inhaled Oxygen Concentration - - Weight 81.6 kg (180 lb) 06/05/2023 8:58 AM CLAY MODELER Height 165.1 cm (5' 5 ) 06/05/2023 8:58 AM CLAY MODELER Body Mass Index 29.95 06/05/2023 8:58 AM CLAY MODELER Plan of Treatment Not on file Insurance [facility] [employer] [facility] [employer] [facility] [employer] [facility] [employer] Care Teams Unit Receptionist Relationship Specialty Start Date End Date Mauri Jaime MD [address] [place] [address] PCP - General Internal Medicine 05/28/23 Guerrero Middleton PA [address] [place] [address] 05/28/23
--- OUTSIDE RECORDS SUMMARY | 2024-08-17 18:25 | XMS_ITS | Encounter Summary ---
Author Organization [facility] Address [address] [place] [address] Care Team Providers Care Clerical Grader Name Role Phone Guerrero Middleton PA-C Primary Care Provide r Encounter Details Date Type Department Care Team (Late st Contact Info) Description 01/04/2022 Telephone [facility]or Services [facility] [address] [place] [address] Phoenix Riddle MD [address] [facility] Department [place] [address] Social History Tobacco Use Types [...] on file Legal Sex Female 6:07 AM SLEEPER CUTTER Gender Identity Not on file Sexual Orientation [...] and Vascular - [address] [place] [address] Marlys Mayer MD [address] [place] [address] documented as of this encounter Visit Diagnoses Not on filedocumented in this encounter Additional Health Concerns Infection Onset Date Last Indicated Resolved Time R/O GI Pathogen 09/19/2023 09/19/2023 09/21/2023 7 :33 AM CDT documented as of this encounter Care Teams Clerical Grader Relationship Specialty Start Date End Date Guerrero Middleton PA-C PCP - General Physician Window Display Designer 02/13/18 documented as of this encounter
--- OUTSIDE RECORDS SUMMARY | 2024-08-17 18:25 | XMS_ITS | Encounter Summary ---
Author Organization [facility] Address [address] [place] [address] Care Team Providers Care Lead Database Administrator Name Role Phone Guerrero Middleton PA-C Primary Care Provide r Reason for Visit * Reason Onset Date Comments OTHER 11/21/2021 Encounter Details Date Type Department Care Team (Late st Contact Info) Description 11/21/2021 Telephone [facility] Oncology [address] [place] [address] Nicole Rosas MD [address] [place] [address] OTHER Social History Tobacco Use [...] on file Legal Sex Female 6:07 AM SYSTEMS DESIGN ENGINEER Gender Identity Not on file Sexual [...] [facility] - [facility] [address] [place] [address] Marlys Mayer MD [address] [place] [address] documented as of this encounter Visit Diagnoses Not on filedocumented in this encounter Additional Health Concerns Infection Onset Date Last Indicated Resolved Time R/O GI Pathogen 09/19/2023 09/19/2023 09/21/2023 7 :33 AM CDT documented as of this encounter Care Teams Lead Database Administrator Relationship Specialty Start Date End Date Guerrero Middleton PA-C PCP - General Physician Disbursing Officer 02/13/18 documented as of this encounter
--- OUTSIDE RECORDS SUMMARY | 2024-08-17 18:25 | XMS_ITS | Encounter Summary ---
Author Organization [facility] Address [address] [place] [address] Care Team Providers Care Solar Installation Crew Supervisor Name Role Phone Guerrero Middleton PA-C Primary Care Provide r Reason for Visit * Reason Onset Date Comments Bard Port flush 11/16/2021 Attempted to patel ch pt due to needing bard port flushes Encounter Details Date Type Department Care Team (Late st Contact Info) Description 11/16/2021 Telephone [facility] Oncology [address] [place] [address] Nicole Rosas MD [address] [place] [address] Bard Port flush (Attempted to [...] on file Legal Sex Female 6:07 AM FOLDER GLUER OPERATOR Gender Identity Not on file Sexual [...] [facility] - [facility] [address] [place] [address] Marlys Mayer MD [address] [place] [address] documented as of this encounter Visit Diagnoses Not on filedocumented in this encounter Additional Health Concerns Infection Onset Date Last Indicated Resolved Time R/O GI Pathogen 09/19/2023 09/19/2023 09/21/2023 7 :33 AM CDT documented as of this encounter Care Teams Solar Installation Crew Supervisor Relationship Specialty Start Date End Date Guerrero Middleton PA-C PCP - General Physician Aviation Technical Systems Specialist 02/13/18 documented as of this encounter
--- OUTSIDE RECORDS SUMMARY | 2024-08-17 18:25 | XMS_ITS | Encounter Summary ---
Author Organization [facility] Address 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 Gender Identity Not on file Sexual [...] [facility] [address] [place] [address] Marlys Mayer MD [address] [place] [address] documented as of this encounter Visit Diagnoses Not on filedocumented in this encounter Additional Health Concerns Infection Onset Date Last Indicated Resolved Time R/O GI Pathogen 09/19/2023 09/19/2023 09/21/2023 7 :33 AM CDT documented as of this encounter Care Teams Golf Ball Winder Relationship Specialty Start Date End Date Guerrero Middleton PA-C PCP - General Physician Data Sme 02/13/18 documented as of this encounter
[2024-08-17 18:53] VITALS: BP 118/75; PULSE 120; RESP 20; TEMP 36.1; O2SAT 99
--- NOTE | 2024-08-17 18:56 | ECG_ITS ---
Test Date: 2024-08-17 19:47:44 Measurements Intervals [place] Rate: 99 P: 53 DE: 155 QRS: 48 QRSD: 81 T: 9 QT: 362 QTc: 465 Interpretive Statements SINUS RHYTHM MINIMAL Q WAVES- INFERIOR LEADS NONSPECIFIC ST-T WAVE ABNORMALITY- INFERIOR LEADS BORDERLINE ECG Compared to ECG 06/21/2024 21:57:24 NO SIGNIFICANT CHANGE Electronically Signed On 08-18-2024 06:12:04 CDT by Baron Bowers D.O.
--- NOTE | 2024-08-17 18:57 | ED_ITS ---
HPI - Abdominal Pain General Chief Complaint: Abdominal Pain <Letha Mcintosh APRN - Last Filed: 08/17/24 18:59> Stated Complaint: Abd pain-Pancreatitis <Letha Mcintosh APRN - Last Filed: 08/17/24 18:59> Time Seen by Provider: 08/17/24 18:50 <Letha Mcintosh APRN - Last Filed: 08/17/24 18:59> Focused HPI: Patient is a 48-year-old female who presents to the ER with complaints of abdominal pain. She reports she has a history of pancreatitis and gastroparesis. Patient reports her pancreatitis is caused by a genetic familial condition. She endorses nausea, but no vomiting. Patient endorses significant right upper quadrant and left upper quadrant pain. GENERAL: Well-appearing, well-nourished, and in no acute distress. HEAD: Normocephalic, atraumatic. CHEST: Clear to auscultation. ?No respiratory distress. HEART: Regular rate and rhythm.? NEURO: ?Alert and oriented x3. Patient screened in triage and initial orders placed.? ?Additional care and disposition to be based upon?diagnostic testing and treatment. <Letha Mcintosh APRN - Last Filed: 08/17/24 18:59> History of Present Illness HPI narrative: Patient is a 48-year-old female prior history of chronic pancreatitis presents emergency department with chief complaint of abdominal pain. Patient reports he has history of hyperlipidemia and reports he occasionally has to have plasmapheresis and also insulin drips. <Francisco Payne MD - Last Filed: 08/18/24 00:39> Related Data Home Medications: Home Medications ?Medication ?Instructions ?Recorded ?Confirmed ?Last Taken ?Type levothyroxine 200 mcg tablet 200 mcg PO DAILY 07/21/23 08/06/24 06/19/24 History nazfdu-oslymhzv-[id number] 2 cap PO TIDWMEAL 07/22/23 08/06/24 06/18/24 History 36,000-114,000-180,000 unit capsule,delay rel (Creon) citalopram 40 mg tablet 40 mg PO DAILY 08/31/23 08/06/24 06/19/24 History bupropion HCl 150 mg tablet,12 hr 150 mg PO HS 10/09/23 08/06/24 06/18/24 History sustained-release insulin aspart U-100 100 unit/mL See Rx Instructions .Route .COMPLEX 03/31/24 08/06/24 06/19/24 History subcutaneous solution (Novolog U-100 Insulin aspart) metoprolol succinate 25 mg 12.5 mg PO DAILY 03/31/24 08/06/24 06/19/24 History tablet,extended release 24 hr metoclopramide HCl 5 mg tablet 5 mg PO TIDWM nausea and vomiting 06/07/24 08/06/24 06/19/24 History <Letha Mcintosh, OTF - Last Filed: 08/17/24 18:59> Allergies/Adverse Reactions: Allergies Allergy/AdvReac Type Severity Reaction Status Date / Time adhesive tape Allergy Mild Rash Verified 08/17/24 18:58 wor[place] pepper (green pepper) Allergy Unknown Hives Verified 08/17/24 18:58 sucralose (From Splenda Allergy Migraine Verified 08/17/24 18:58 (sucralose)) Artificial Sweetners AdvReac Migraine Uncoded 08/17/24 18:58 <Letha Mcintosh, DIRECTOR OF RESPIRATORY THERAPY - Last Filed: 08/17/24 18:59> Review of Systems 2 Review of Systems: A 10 system review of systems was completed on the patient and is negative except for what is stated in the HPI. Nursing and ancillary documentation was reviewed. 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 Allergic rhinitis Insulin dependent diabetes mellitus Chronic pancreatitis (~09/02/23) Port-A-Cath in place Lipoprotein deficiency Hyperlipemia Headache <Letha Mcintosh APRN - Last Filed: 08/17/24 18:59> Surgical History Surgical History: Surgical History History of wisdom tooth extraction History of tubal ligation History of partial hysterectomy History of endometrial ablation History of appendectomy History of loop electrical excision procedure (LEEP) History of exploratory laparotomy History of dilatation and curettage History of conization of cervix History of tonsillectomy <Letha Mcintosh, DIRECTOR OF RESPIRATORY THERAPY - Last Filed: 08/17/24 18:59> Family History Family History: Family History Father Alcohol abuse Hypercholesteremia Hypertension Family history of alcoholism Family history of cardiovascular disease Diabetes mellitus Mother Hypercholesteremia Hypothyroid Cerebrovascular accident Family history of cardiovascular disease Diabetes mellitus Grandparent Skin cancer Colon cancer Heart disease Hypothyroid Cerebrovascular accident Sibling Autoimmune disorder Hypothyroid Kidney disorder Hypertension Diabetes mellitus Other Family history of kidney disease <Letha Mcintosh, DIRECTOR OF RESPIRATORY THERAPY - Last Filed: 08/17/24 18:59> Social History Social History: Social History Social History: She smokes up to 1ppd since age 16yo. No alcohol or drug use. She has dog and a cat at home. Surrogate medical decision maker: José Miguel Jones, spouse. Code status: Full Smoking packs per day: 0.5 Smoking cigarettes per day: 10.0 Years smoked: 32 Smoking pack-years: 16.00 Smoking status: Current every day smoker Tobacco type: cigarettes Second hand tobacco smoke exposure: No Alcohol intake: never Drinks per week: 0 Substance use: never Substance use type: does not use Do You Feel Safe in your Home?: Yes Lack of Transportation: No Lack of Food: Never True Current Housing: I Have Housing Concerned About Future Housing: No Difficulty Paying Gas/Electric Bills: No Difficulty Paying for Meds: YES Currently Unemployed: No Education: Associate Degree Difficulty w/ Childcare or Family Care: No Living arrangements: with family Occupation/Education: 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 HEAD: Normocephalic, atraumatic. EYES: PERRLA and EOMI. ENT: Nares clear, no rhinorrhea or epistaxis. Mucous membranes moist. NECK: Supple. CHEST: Clear to auscultation. No respiratory distress. HEART: Regular rate and rhythm. No murmur heard. Normal peripheral pulses. ABDOMEN: Soft, nontender, nondistended, normal active bowel sounds. EXTREMITIES: Normal range of motion. No edema. SKIN: Warm, dry, no rash. NEURO: No focal deficits. Alert and oriented x3. PSYCH: Normal mood and affect. <Francisco Payne MD - Last Filed: 08/18/24 00:39> Course Vital Signs Vital signs: Vital Signs Temperature 36.1 C L 08/17/24 18:53 Pulse Rate 120 H 08/17/24 18:53 Respiratory Rate 20 08/17/24 18:53 Blood Pressure 118/75 08/17/24 18:53 Pulse Oximetry 99 08/17/24 18:53 Oxygen Delivery Room Air 08/17/24 18:53 Temperature 36.1 C L 08/17/24 18:53 Pulse Rate 120 H 08/17/24 18:53 Respiratory Rate 20 08/17/24 18:53 Blood Pressure 118/75 08/17/24 18:53 Pulse Oximetry 99 08/17/24 18:53 Oxygen Delivery Room Air 08/17/24 18:53 <Letha Mcintosh APRN - Last Filed: 08/17/24 18:59> Vital Signs Temperature 36.1 C L 08/17/24 18:53 Pulse Rate 120 H 08/17/24 18:53 Respiratory Rate 20 08/17/24 18:53 Blood Pressure 118/75 08/17/24 18:53 Pulse Oximetry 99 08/17/24 18:53 Oxygen Delivery Room Air 08/17/24 18:53 Temperature 36.1 C L 08/17/24 18:53 Pulse Rate 120 H 08/17/24 18:53 Respiratory Rate 20 08/17/24 18:53 Blood Pressure 118/75 08/17/24 18:53 Pulse Oximetry 99 08/17/24 18:53 Oxygen Delivery Room Air 08/17/24 18:53 <Francisco Payne MD - Last Filed: 08/18/24 00:39> MDM - Abdominal Pain MDM Narrative Medical decision making narrative: Differential diagnosis includes chronic acute on chronic pancreatitis, hypertriglyceridemia. Patient's triglycerides today were 756. Lipase was 92. CT scan of the abdomen pelvis showed no acute abnormality The case was discussed with patient. I will adjust that performs her plasmapheresis this time since her levels are below a 1000 recommended just conservative management without plasmapheresis or IV insulin. The case was discussed with the hospitalist for admission for observation <Francisco Payne MD - Last Filed: 08/18/24 00:39> Lab Data Result diagrams: 08/17/24 19:41 08/17/24 19:41 <Letha Mcintosh APRN - Last Filed: 08/17/24 18:59> Labs: Lab Results 08/17/24 08/17/24 Range/Units 19:41 19:41 WBC 9.8 (4.5-10.0) K/mm3 RBC 3.96 L (4.2-5.4) M/mm3 Hgb 11.6 L (12.0-15.0) g/dL Hct 36.3 L (37.0-47.0) % MCV 91.7 (80-100) fl MCH 29.3 (26-34) pg MCHC 32.0 (32-36) g/dl RDW 15.3 H (11.5-14.5) % Plt Count 330 (150-375) k/mm3 MPV 8.8 (7.4-10.4) fl Immature Gran % (Auto) 0.8 H (0-0.5) % Neut % (Auto) 65.7 (45.5-73.1) % Lymph % (Auto) 27.0 (18.3-44.2) % [place] % (Auto) 4.9 (2.6-8.5) % Eos % (Auto) 1.1 (0-4.4) % Baso % (Auto) 0.5 (0.2-1.2) % Lymph # (Auto) 2.66 (0.9-3.2) K/mm3 [place] # (Auto) 0.5 (0.1-0.6) K/mm3 Eos # (Auto) 0.1 (0-0.3) K/mm3 Baso # (Auto) 0.1 (0.0-0.1) K/mm3 Abs Immat Gran (auto) 0.08 H (0.00-0.031) K/mm3 Absolute Neuts (auto) 6.5 (1.3-6.7) K/mm3 Absolute Nucleated RBC 0.000 (0.0-0.012) K/mm3 Nucleated RBC % 0.0 (0.0-0.2) % PT 12.1 (11.1-14.7) Seconds INR 0.9 APTT 31.6 (22.3-36.8) Seconds Sodium 139 (137-145) mmol/L Potassium 4.1 (3.4-5.0) mmol/L Chloride 104 (98-107) mmol/L Carbon Dioxide 24 (22-30) mmol/L Anion Gap 11 (4-12) mmol/L BUN 18 H D (7-17) mg/dL Creatinine 0.85 (0.7-1.0) mg/dL Estim Creat Clear Calc 83 ml/min Estimated GFR > 60 (59 - ) Glucose 155 H (65-110) mg/dL Calcium 9.4 (8.4-10.2) mg/dL Total Bilirubin 0.4 (0.2-1.3) mg/dL AST 21 (14-36) U/L ALT 16 (6-35) U/L Alkaline Phosphatase 77 (38-126) U/L Troponin I < 0.012 (0.000-0.034) ng/mL Total Protein 8.0 (6.3-8.2) g/dL Albumin 4.8 (3.5-5.1) g/dL Triglycerides 756 H Cancelled (<150) mg/dL Lipase 92 (23-300) U/L Urine Color Yellow (Yellow) Urine Appearance Clear (Clear) Urine pH 5.5 (5.0-9.0) Ur Specific [place] 1.019 (1.001-1.035) Urine Protein Negative (Negative) mg/dL Urine Glucose (UA) Negative (Negative) mg/dL Urine Ketones Negative (Negative) mg/dL Ur Blood (Man) Negative (Negative) Urine Nitrate Negative (Negative) Urine Bilirubin Negative (Negative) Urine Urobilinogen 0.2 (<2.0) mg/dL Leukocyte Esterase Rfl Negative (Negative) STEPHEN/UL <Letha ArreolaKevin Mcintosh, DIRECTOR OF RESPIRATORY THERAPY - Last Filed: 08/17/24 18:59> Lab Results 08/17/24 08/17/24 Range/Units 19:41 19:41 WBC 9.8 (4.5-10.0) K/mm3 RBC 3.96 L (4.2-5.4) M/mm3 Hgb 11.6 L (12.0-15.0) g/dL Hct 36.3 L (37.0-47.0) % MCV 91.7 (80-100) fl MCH 29.3 (26-34) pg MCHC 32.0 (32-36) g/dl RDW 15.3 H (11.5-14.5) % Plt Count 330 (150-375) k/mm3 MPV 8.8 (7.4-10.4) fl Immature Gran % (Auto) 0.8 H (0-0.5) % Neut % (Auto) 65.7 (45.5-73.1) % Lymph % (Auto) 27.0 (18.3-44.2) % [place] % (Auto) 4.9 (2.6-8.5) % Eos % (Auto) 1.1 (0-4.4) % Baso % (Auto) 0.5 (0.2-1.2) % Lymph # (Auto) 2.66 (0.9-3.2) K/mm3 [place] # (Auto) 0.5 (0.1-0.6) K/mm3 Eos # (Auto) 0.1 (0-0.3) K/mm3 Baso # (Auto) 0.1 (0.0-0.1) K/mm3 Abs Immat Gran (auto) 0.08 H (0.00-0.031) K/mm3 Absolute Neuts (auto) 6.5 (1.3-6.7) K/mm3 Absolute Nucleated RBC 0.000 (0.0-0.012) K/mm3 Nucleated RBC % 0.0 (0.0-0.2) % PT 12.1 (11.1-14.7) Seconds INR 0.9 APTT 31.6 (22.3-36.8) Seconds Sodium 139 (137-145) mmol/L Potassium 4.1 (3.4-5.0) mmol/L Chloride 104 (98-107) mmol/L Carbon Dioxide 24 (22-30) mmol/L Anion Gap 11 (4-12) mmol/L BUN 18 H D (7-17) mg/dL Creatinine 0.85 (0.7-1.0) mg/dL Estim Creat Clear Calc 83 ml/min Estimated GFR > 60 (59 - ) Glucose 155 H (65-110) mg/dL Calcium 9.4 (8.4-10.2) mg/dL Total Bilirubin 0.4 (0.2-1.3) mg/dL AST 21 (14-36) U/L ALT 16 (6-35) U/L Alkaline Phosphatase 77 (38-126) U/L Troponin I < 0.012 (0.000-0.034) ng/mL Total Protein 8.0 (6.3-8.2) g/dL Albumin 4.8 (3.5-5.1) g/dL Triglycerides 756 H Cancelled (<150) mg/dL Lipase 92 (23-300) U/L Urine Color Yellow (Yellow) Urine Appearance Clear (Clear) Urine pH 5.5 (5.0-9.0) Ur Specific [place] 1.019 (1.001-1.035) Urine Protein Negative (Negative) mg/dL Urine Glucose (UA) Negative (Negative) mg/dL Urine Ketones Negative (Negative) mg/dL Ur Blood (Man) Negative (Negative) Urine Nitrate Negative (Negative) Urine Bilirubin Negative (Negative) Urine Urobilinogen 0.2 (<2.0) mg/dL Leukocyte Esterase Rfl Negative (Negative) STEPHEN/UL <Francisco Payne MD - Last Filed: 08/18/24 00:39> Imaging Data Radiologist's impression: ITS Impressions Abdomen/Pelvis CT 08/17/24 22:32 IMPRESSION: Hepatomegaly with steatosis. No CT evidence of pancreatitis. Inferior malrotation of the left kidney, with chronic mild pelviectasis and caliectasis, likely reflecting some degree of chronic UPJ obstruction, unchanged. <Letha Mcintosh APRN - Last Filed: 08/17/24 18:59> ITS Impressions Abdomen/Pelvis CT 08/17/24 22:32 IMPRESSION: Hepatomegaly with steatosis. No CT evidence of pancreatitis. Inferior malrotation of the left kidney, with chronic mild pelviectasis and caliectasis, likely reflecting some degree of chronic UPJ obstruction, unchanged. <Francisco Payne MD - Last Filed: 08/18/24 00:39> Discharge Plan Discharge Clinical Impression: Acute on chronic pancreatitis, Chylomicronemia syndrome <Letha Mcintosh APRN - Last Filed: 08/17/24 18:59> Patient Disposition: Still a Patient <Letha Mcintosh APRN - Last Filed: 08/17/24 18:59> Condition: Stable <Letha Mcintosh APRN - Last Filed: 08/17/24 18:59> Instructions: Antibiotic Form <Letha Mcintosh APRN - Last Filed: 08/17/24 18:59> Patient Language: Chinese <Letha Mcintosh APRN - Last Filed: 08/17/24 18:59> Prescriptions: No Action metformin 500 mg tablet 1,000 mg PO BID Qty: 180 1RF Rx Instructions: with morning & evening meals pantoprazole [Protonix] 40 mg tablet,delayed release (DR/EC) 40 mg PO BID Qty: 30 0RF levothyroxine 200 mcg tablet 200 mcg PO DAILY Creon 36,000-114,000- 180,000 unit capsule,delayed release(DR/EC) 2 cap PO TIDWMEAL Rx Instructions: Take 2 capsules with meals and 1 capsule with any snacks. aspirin 81 mg Tablet,Delayed Release (Dr/Ec) 81 mg PO QAM Qty: 30 0RF citalopram 40 mg tablet 40 mg PO DAILY Rx Instructions: TAKE 1 TABLET BY MOUTH EVERY DAY bupropion HCl 150 mg tablet sustained-release 12 hr 150 mg PO HS ondansetron 4 mg tablet,disintegrating 4 mg PO Q8H PRN (Reason: nausea and vomiting) Qty: 10 0RF insulin aspart U-100 [Novolog U-100 Insulin aspart] 100 unit/mL solution See Rx Instructions .ROUTE .COMPLEX Rx Instructions: infused via insulin pump metoprolol succinate 25 mg tablet extended release 24 hr 12.5 mg PO DAILY docusate sodium 100 mg Capsule 100 mg PO Q12HR PRN (Reason: constipation) Qty: 20 0RF metoclopramide HCl 5 mg tablet 5 mg PO TIDWM Brilinta 90 mg tablet 90 mg PO BID Qty: 180 0RF (DME) pen needle, diabetic [BD Ultra-Fine Diandra Pen Needle] 32 gauge x 5/32 needle See Rx Instructions .ROUTE .MEDSUPPLY Qty: 1200 12RF Rx Instructions: 4 times daily (DME) insulin syringe-needle U-100 [BD Insulin Syringe Ultra-Fine] 0.3 mL 31 gauge x 5/16 syringe See Rx Instructions .ROUTE .MEDSUPPLY Qty: 100 12RF Rx Instructions: 4 times a day fenofibrate 160 mg tablet 160 mg PO DAILY Qty: 90 1RF trazodone 100 mg tablet 200 mg PO HS Qty: 180 1RF lorazepam 1 mg tablet 1 mg PO QHS PRN (Reason: sleep) Qty: 90 0RF atorvastatin 80 mg tablet 80 mg PO HS Qty: 90 3RF <eLtha Mcintosh APRN - Last Filed: 08/17/24 18:59> Follow-up/Referrals: Jose Zuniga APRN [Primary Care Provider] - <Letha Mcintosh APRN - Last Filed: 08/17/24 18:59> Time of Disposition: 00:39 <Letha Mcintosh APRN - Last Filed: 08/17/24 18:59> 00:39 <Francisco Payne MD - Last Filed: 08/18/24 00:39>
[2024-08-17 19:51] LABS: Basophils Absolute Auto 0.1 K/mm3 (0.0-0.1); Basophils Percent Auto 0.5 % (0.2-1.2); Eosinophils Absolute Auto 0.1 K/mm3 (0-0.3); Eosinophils Percent Auto 1.1 % (0-4.4); Hematocrit 36.3 % (37.0-47.0); Hemoglobin 11.6 g/dL (12.0-15.0); Immature Granulocyte Absolute 0.08 K/mm3 (0.00-0.031); Immature Granulocyte Percent A 0.8 % (0-0.5); Lymphocytes Absolute Auto 2.66 K/mm3 (0.9-3.2); Mean Corpuscular Hemoglobin 29.3 pg (26-34); Mean Corpuscular Volume 91.7 fl (80-100); Mean Platelet Volume 8.8 fl (7.4-10.4); Monocytes Absolute Auto 0.5 K/mm3 (0.1-0.6); Monocytes Percent Auto 4.9 % (2.6-8.5); Neutrophils Absolute Auto 6.5 K/mm3 (1.3-6.7); Neutrophils Percent Auto 65.7 % (45.5-73.1); Platelet Count Result 330 k/mm3 (150-375); Red Blood Count 3.96 M/mm3 (4.2-5.4); Red Cell Distribution Width 15.3 % (11.5-14.5); White Blood Count 9.8 K/mm3 (4.5-10.0)
[2024-08-17 19:55] LABS: Add Urine Microscopic? NO; Appearance Urine Clear (Clear); Bilirubin Urine Negative (Negative); Blood Urine Negative (Negative); Color Urine Yellow (Yellow); Glucose Urine UA Negative (Negative); Ketones Urine Negative (Negative); Leukocyte Esterase Ur Negative LEU/UL (Negative); Nitrate Urine Negative (Negative); Protein Urine Negative (Negative); Specific Grav Ur 1.019 (1.001-1.035); Urobilinogen Urine 0.2 mg/dL (<2.0); pH Urine 5.5 (5.0-9.0)
[2024-08-17 20:08] LABS: INR 0.9; Prothrombin Time 12.1 Seconds (11.1-14.7)
[2024-08-17 20:09] LABS: Partial Thromboplastin Time 31.6 Seconds (22.3-36.8)
[2024-08-17 20:13] LABS: Troponin I < 0.012 ng/mL (0.000-0.034)
[2024-08-17 20:28] LABS: Alanine Aminotransferase 16 U/L (6-35); Albumin Level 4.8 g/dL (3.5-5.1); Alkaline Phosphatase 77 U/L (38-126); Anion Gap 11 mmol/L (4-12); Aspartate Amino Transferase 21 U/L (14-36); Bilirubin,Total 0.4 mg/dL (0.2-1.3); Blood Urea Nitrogen 18 mg/dL (7-17); Calcium 9.4 mg/dL (8.4-10.2); Carbon Dioxide 24 mmol/L (22-30); Chloride 104 mmol/L (98-107); Estimated CRCL calculation 83 ml/min; Estimated Glomerular Filt Rate > 60; Glucose 155 mg/dL (65-110); Lipase 92 U/L (23-300); Potassium 4.1 mmol/L (3.4-5.0); Sodium 139 mmol/L (137-145)
[2024-08-17 20:32] LABS: Triglycerides 756 mg/dL (<150)
[2024-08-17] MEDS: SODIUM CHLORIDE 0.9% IV 1,000 ML 999 ML IV CONT (22:30)
[2024-08-17] MEDS: ONDANSETRON INJ 4 MG/2 ML VIAL IV PUSH (22:30)
[2024-08-17] MEDS: HYDROmorphone HCL INJ (*CRX) 2 MG/ML VIAL 1 MG IV PUSH (22:30)
[2024-08-18] VITALS (9 sets, daily range): BP systolic 90–125; BP diastolic 54–78; PULSE 78–84; RESP 14–20; TEMP 36.1–36.8; O2SAT 92–98; BMI 29.9; BMI 30.2
--- OUTSIDE RECORDS SUMMARY | 2024-08-18 01:04 | XMS_ITS | Encounter Summary ---
Author Organization [facility] Address 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 Gender Identity Not on file [...] [facility] [place] [address] [place] [address] Marlys Mayer MD [address] [place] [address] documented as of this encounter Visit Diagnoses Not on filedocumented in this encounter Additional Health Concerns Infection Onset Date Last Indicated Resolved Time R/O GI Pathogen 09/19/2023 09/19/2023 09/21/2023 7 :33 AM CDT documented as of this encounter Care Teams Reeling And Tubing Machine Operator Relationship Specialty Start Date End Date Guerrero Middleton PA-C PCP - General Physician Photographic Colorist 02/13/18 documented as of this encounter
--- OUTSIDE RECORDS SUMMARY | 2024-08-18 01:04 | XMS_ITS | Encounter Summary ---
Author Organization [facility] Address 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 [address] [place] [address] Marlys Mayer MD [address] [place] [address] documented as of this encounter Visit Diagnoses Not on filedocumented in this encounter Additional Health Concerns Infection Onset Date Last Indicated Resolved Time R/O GI Pathogen 09/19/2023 09/19/2023 09/21/2023 7 :33 AM CDT documented as of this encounter Care Teams Flagstone Layer Relationship Specialty Start Date End Date Guerrero Middleton PA-C PCP - General Physician Supervisor Carbon Electrodes 02/13/18 documented as of this encounter
--- OUTSIDE RECORDS SUMMARY | 2024-08-18 01:04 | XMS_ITS | Encounter Summary ---
Author Organization [facility] Address 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 Gender Identity Not on file Sexual Orientation [...] [facility] Heart and Vascular - [address] [place] [address] Marlys Mayer MD [address] [place] [address] documented as of this encounter Visit Diagnoses Not on filedocumented in this encounter Additional Health Concerns Infection Onset Date Last Indicated Resolved Time R/O GI Pathogen 09/19/2023 09/19/2023 09/21/2023 7 :33 AM CDT documented as of this encounter Care Teams Custodian Athletic Equipment Relationship Specialty Start Date End Date Guerrero Middleton PA-C PCP - General Physician Tattoo Technician 02/13/18 documented as of this encounter
--- OUTSIDE RECORDS SUMMARY | 2024-08-18 01:04 | XMS_ITS | Encounter Summary ---
Author Organization [facility] Address 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 Gender Identity Not on file Sexual [...] [facility] [address] [place] [address] Marlys Mayer MD [address] [place] [address] documented as of this encounter Visit Diagnoses Not on filedocumented in this encounter Additional Health Concerns Infection Onset Date Last Indicated Resolved Time R/O GI Pathogen 09/19/2023 09/19/2023 09/21/2023 7 :33 AM CDT documented as of this encounter Care Teams Ranch Supervisor Relationship Specialty Start Date End Date Guerrero Middleton PA-C PCP - General Physician Dormitory Keeper 02/13/18 documented as of this encounter
--- OUTSIDE RECORDS SUMMARY | 2024-08-18 01:04 | XMS_ITS | Encounter Summary ---
Author Organization [facility] Address [address] [place] [address] Care Team Providers Care Supervisor Fleshing Name Role Phone Guerrero Middleton PA-C Primary Care Provide r Encounter Details Date Type Department Care Team (Late st Contact Info) Description 11/30/[address] 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 Gender Identity Not on file Sexual [...] [facility] - [place] [address] [place] [address] Marlys Mayer MD [address] [place] [address] documented as of this encounter Visit Diagnoses Not on filedocumented in this encounter Additional Health Concerns Infection Onset Date Last Indicated Resolved Time R/O GI Pathogen 09/19/2023 09/19/2023 09/21/2023 7 :33 AM CDT documented as of this encounter Care Teams Supervisor Fleshing Relationship Specialty Start Date End Date Guerrero Middleton PA-C PCP - General Physician Animal Ride Attendant 02/13/18 documented as of this encounter
--- OUTSIDE RECORDS SUMMARY | 2024-08-18 01:04 | XMS_ITS | Encounter Summary ---
Author Organization [facility] Address [address] [place] [address] Care Team Providers Care Welfare Aide Name Role Phone Guerrero Middleton PA-C Primary Care Provide r Encounter Details Date Type Department Care Team (Late st Contact Info) Description 12/08/2021 Telephone [facility] Donor Services [facility] [address] [place] [address] Phoenix Riddle MD [address] 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 Gender Identity Not on file Sexual [...] [facility] [address] [place] [address] Marlys Mayer MD [address] [place] [address] documented as of this encounter Visit Diagnoses Not on filedocumented in this encounter Additional Health Concerns Infection Onset Date Last Indicated Resolved Time R/O GI Pathogen 09/19/2023 09/19/2023 09/21/2023 7 :33 AM CDT documented as of this encounter Care Teams Welfare Aide Relationship Specialty Start Date End Date Guerrero Middleton PA-C PCP - General Physician Pecan Mallow Dipper 02/13/18 documented as of this encounter
--- OUTSIDE RECORDS SUMMARY | 2024-08-18 01:04 | XMS_ITS | Encounter Summary ---
Author Organization [facility] Address 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 Gender Identity Not on file Sexual [...] [facility] [address] [place] [address] Marlys Mayer MD [address] [place] [address] documented as of this encounter Visit Diagnoses Not on filedocumented in this encounter Additional Health Concerns Infection Onset Date Last Indicated Resolved Time R/O GI Pathogen 09/19/2023 09/19/2023 09/21/2023 7 :33 AM CDT documented as of this encounter Care Teams Wool Hat Forming Machine Tender Relationship Specialty Start Date End Date Guerrero Middleton PA-C PCP - General Physician Legal Specialist 02/13/18 documented as of this encounter
--- OUTSIDE RECORDS SUMMARY | 2024-08-18 01:05 | XMS_ITS | Clinical Summary ---
Author Organization [facility] Address [address] [address] Phone Care Team Providers Care Extractor Filler Name Role Phone Jose G Palmer MD Unavailable Guerrero Middleton Primary Care Provider Social History [...] to complete this topic Insurance Care Teams Extractor Filler Relationship Specialty Start Date End Date Guerrero Middleton PAC [address] [place] [address] PCP - General Physician City Clerk 12/10/16 Jose G Palmer MD Consulting Physician Gastroenterology 12/10/16
--- OUTSIDE RECORDS SUMMARY | 2024-08-18 01:05 | XMS_ITS | Encounter Summary ---
Author Organization [facility] Address 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 Gender Identity Not on file Sexual [...] [facility] - [address] [place] [address] Marlys Mayer MD [address] [place] [address] documented as of this encounter Visit Diagnoses Not on filedocumented in this encounter Additional Health Concerns Infection Onset Date Last Indicated Resolved Time R/O GI Pathogen 09/19/2023 09/19/2023 09/21/2023 7 :33 AM CDT documented as of this encounter Care Teams Spa Therapist Relationship Specialty Start Date End Date Guerrero Middleton PA-C PCP - General Physician Alignment Mechanic 02/13/18 documented as of this encounter
--- OUTSIDE RECORDS SUMMARY | 2024-08-18 01:05 | XMS_ITS | Referral Summary ---
Author Organization [facility] Address [address] [place] [address] Care Team Providers Care Control Clerk Name Role Phone Mauri Jaime MD Primary Care Provider [phone] Guerrero Middleton PA Unavailable [phone] Allergies Active Allergy Reactions Criticality Noted Date [...] tablet TAKE 1 TABLET BY MOUTH EVERY MONUMENT SETTER HELPER 022 Active fenofibrate (TRIGLIDE) 160 mg tablet [...] on file Legal Sex Female 5:05 AM CARGO AND CONTAINER INSPECTOR Gender Identity Not on file Sexual Orientation Not on file Last Filed Vital Signs Vital Sign Reading Time Taken Comments Blood Pressure 101/62 06/05/2023 11:38 AM CARGO AND CONTAINER INSPECTOR Pulse 76 06/05/2023 11:38 AM CARGO AND CONTAINER INSPECTOR Temperature 36.4 C (97.5 F) 06/05/2023 10:35 AM CARGO AND CONTAINER INSPECTOR Respiratory Rate 22 06/05/2023 11:38 AM CARGO AND CONTAINER INSPECTOR Oxygen Saturation 94% 06/05/2023 11:38 AM CARGO AND CONTAINER INSPECTOR Inhaled Oxygen Concentration - - Weight 81.6 kg (180 lb) 06/05/2023 8:58 AM CARGO AND CONTAINER INSPECTOR Height 165.1 cm (5' 5 ) 06/05/2023 8:58 AM CARGO AND CONTAINER INSPECTOR Body Mass Index 29.95 06/05/2023 8:58 AM CARGO AND CONTAINER INSPECTOR Plan of Treatment Not on file Insurance [facility] [employer] [facility] Care Teams Control Clerk Relationship Specialty Start Date End Date Mauri Jaime MD [address] [place] [address] PCP - General Internal Medicine 05/28/23 Guerrero Middleton PA [address] [place] [address] 05/28/23
--- OUTSIDE RECORDS SUMMARY | 2024-08-18 01:05 | XMS_ITS | Encounter Summary ---
Author Organization [facility] Address [address] [place] [address] Care Team Providers Care Asp Net C Developer Name Role Phone Guerrero Middleton PA-C Primary Care Provide r Reason for Visit * Reason Onset Date Comments OTHER 11/21/2021 Encounter Details Date Type Department Care Team (Late st Contact Info) Description 11/21/2021 Telephone [facility] Oncology [address] [place] [address] Nicole Rosas MD [address] 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 [address] [place] [address] Marlys Mayer MD [address] [place] [address] documented as of this encounter Visit Diagnoses Not on filedocumented in this encounter Additional Health Concerns Infection Onset Date Last Indicated Resolved Time R/O GI Pathogen 09/19/2023 09/19/2023 09/21/2023 7 :33 AM CDT documented as of this encounter Care Teams Asp Net C Developer Relationship Specialty Start Date End Date Guerrero Middleton PA-C PCP - General Physician Manager [employer] 02/13/18 documented as of this encounter
--- OUTSIDE RECORDS SUMMARY | 2024-08-18 01:05 | XMS_ITS | Clinical Summary ---
Author Organization [facility] Address [address] [place] [address] Phone Care Team Providers Care Survey Field Technician Name Role Phone Guerrero Middleton PA-C [...] 48h post LHC 4 Active Blood-Glucose Sensor (Fotoupcom G7 Sensor) Device 4 Active buPROPion HCL [...] be different from the original. Marlys Mayer MD--House Father ([facility] ) Problem [...] Type Department Care Team Description 08/11/2024 Abstract [facility] Heart and Vascular At [address] [place] [address] Marlys Mayer MD 06/30/2024 External Device Data [facility] ABSTRACTION Provider, Abstract 06/02/2024 External Device Data [facility] ABSTRACTION Provider, Abstract 06/02/2024 Abstract [facility] Heart and Vascular At [address] [place] [address] Marlys Mayer MD 06/02/2024 Telephone [facility] Heart and Vascular At [address] [facility] [address] [place] [address] Marlys Mayer MD Medical Records [...] on file Legal Sex Female 6:07 AM ETCHER MACHINE Gender Identity Not on file Sexual Orientation Not on file Occupation Industry Job Start Date Job End Date Not on file Not on file Not on file Not on file Last Filed Vital Signs Vital Sign Reading Time Taken Comments Blood Pressure 112/70 04/20/2024 3:12 PM ETCHER MACHINE Pulse 103 04/20/2024 3:12 PM ETCHER MACHINE Temperature 36.5 C (97.7 F) 11/29/2023 10:58 AM CDT Respiratory Rate 21 11/29/2023 6:15 PM CDT Oxygen Saturation 96% 04/20/2024 3:12 PM ETCHER MACHINE Inhaled Oxygen Concentration - - Weight 86.6 kg (191 lb) 04/20/2024 3:12 PM ETCHER MACHINE Height 165.1 cm (5' 5 ) 04/20/2024 3:12 PM ETCHER MACHINE Body Mass Index 31.78 04/20/2024 3:12 PM ETCHER MACHINE Plan of Treatment Upcoming Encounters Date Type Department Care Team (Late st Contact Info) Description 09/14/2024 3:00 PM CDT Office Visit [facility] Heart and Vascular - [facility] [address] [place] [address] Marlys Mayer MD [address] [place] [address] Health Maintenance Due Date Last Done Comments [...] history exists Medical Devices Implanted Type Area Binder Stripper Machine Device Identifier Shelf Expiration Date Model / Serial / Lot Cath Hemodlys Glidespath 23cm [id number] Implanted:Qty : 1 on 04/10/2018 by Kayla Shefifeld MD Catheter CR BARD- [employer] [id number] 08/27/2019 [id number] / / [id number] Description:14.5fr x 23cm; R IJ Port-10/29/2018 Implanted:Qty : 2 on 10/29/2018 by Laverne Willoughby MD Explanted:Qty : 1 on 02/18/2019 by Michael Powell MD Port Right: Chest Wall CR BARD- ACCESS SYS 07/28/2019 / / [id number] Description:two 9.6fr fower flow apheresis ports placed by Dr. Willoughby Port- 0 Implanted:Qty : 1 on 05/11/2019 by Alfa Forrest MD Port Left: Chest Wall CR BARD- ACCESS SYS 08/26/2020 / / [id number] Stent Synergy Xd 4.0x12mm Evrlms Elut [id number] - [id number] Implanted:Qty : 1 on 11/29/2023 by Miguel Lewis MD at [facility] Stent N/A: Coronary [employer] [id number] 03/19/2024 [id number] / / [id number] Procedures Procedure Name Priority Date/Time Associated Diagnosis Comments LDL CHOLESTEROL, DIRECT Stat 09/19/2023 12:59 AM CDT HEMOGLOBIN A1C Routine 09/18/2023 10:18 PM CDT from Last 3 Months or Most Recently Relevant to Health Maintenance Results * LDL CHOLESTEROL, DIRECT (09/19/2023 12:59 AM CDT) LDL CHOLESTEROL, DIRECT 47 <100 mg/dL 09/19/2023 5:52 AM CDT [facility] Blood Venipuncture / Unknown 09/19/2023 12:59 AM CDT 09/19/2023 1:09 AM CDT Narrative [facility] - 09/19/2023 5:52 AM CDT LDL CHOLESTEROL [...] ORDERABLES Fin al Result Performing Organization Address [facility]/ZIP Co de Phone Number [facility] [employer] [facility]# [id number] [address] [place] [address] * (ABNORMAL) HEMOGLOBIN A1C (09/18/2023 10:18 PM CDT) HEMOGLOBIN A1C 9.7(H) <5.7 % 09/19/2023 10:59 AM CDT [employer] [facility] EST. AVG GLUCOSE, A1C 232 mg/dL 09/19/2023 10:59 AM CDT [facility] [employer] [facility] Blood Venipuncture / Unknown 09/18/2023 10:18 PM CDT 09/18/2023 10:26 PM CDT Narrative [facility] - 09/19/2023 10:59 AM CDT HGB A1C INTERPRETATION NORMAL: <5.7% PRE-DIABETES: 5.7 - 6.4% DIABETES: 6.5% OR GREATER Herlinda Mederos DO CHEMISTRY ORDERABLES Final Resul t Performing Organization Address [facility] de Phone Number [facility] [employer] [facility]# [id number] [address] [place] [address] from Last 3 Months or Most Recently Relevant to Health Maintenance Insurance RX [employer] Medicare Part D RX [employer] PLANS (INTERNAL) [facility] RX [employer] PLANS (INTERNAL) [facility] Advance Directives For more information, please contact: [phone] * Full Code (Latest Code Status on [...] 12:11 AM 01/02/2021 4:26 PM Care Teams Survey Field Technician Relationship Specialty Start Date End Date Guerrero Middleton PA-C PCP - General Physician Tobacco Sweeper 02/13/18
--- OUTSIDE RECORDS SUMMARY | 2024-08-18 01:05 | XMS_ITS | Clinical Summary ---
Author Organization [facility] Address [address] [place] [address] Care Team Providers Care Log Buyer Name Role Phone Mauri Jaime MD Primary Care Provider [phone] Guerrero Middleton PA Unavailable [phone] Allergies Active Allergy Reactions Criticality Noted Date [...] TAKE 1 TABLET BY MOUTH EVERY HEAD NURSE 022 Active fenofibrate (TRIGLIDE) 160 mg tablet [...] on file Legal Sex Female 5:05 AM DIRECTOR OF PHYSICAL SECURITY Gender Identity Not on file Sexual Orientation Not on file Obstetrics History Last Filed Vital Signs Vital Sign Reading Time Taken Comments Blood Pressure 101/62 06/05/2023 11:38 AM DIRECTOR OF PHYSICAL SECURITY Pulse 76 06/05/2023 11:38 AM DIRECTOR OF PHYSICAL SECURITY Temperature 36.4 C (97.5 F) 06/05/2023 10:35 AM DIRECTOR OF PHYSICAL SECURITY Respiratory Rate 22 06/05/2023 11:38 AM DIRECTOR OF PHYSICAL SECURITY Oxygen Saturation 94% 06/05/2023 11:38 AM DIRECTOR OF PHYSICAL SECURITY Inhaled Oxygen Concentration - - Weight 81.6 kg (180 lb) 06/05/2023 8:58 AM DIRECTOR OF PHYSICAL SECURITY Height 165.1 cm (5' 5 ) 06/05/2023 8:58 AM DIRECTOR OF PHYSICAL SECURITY Body Mass Index 29.95 06/05/2023 8:58 AM DIRECTOR OF PHYSICAL SECURITY Plan of Treatment Health Maintenance Due Date [...] 03/04/2021, Additional history exists Insurance [facility]GY [facility] [employer]TRA [facility] [facility] Care Teams Log Buyer Relationship Specialty Start Date End Date Mauri Jaime MD [address] [facility] [address] [place] [address] PCP - General Internal Medicine 05/28/23 Guerrero Middleton PA [address] [facility] [address] [place] [address] 05/28/23
[2024-08-18] MEDS: HYDROmorphone HCL INJ (*CRX) 2 MG/ML VIAL 1 MG IV PUSH ×4 (02:01→18:40)
[2024-08-18] MEDS: SODIUM CHLORIDE 0.9% IV 1,000 ML 125 ML IV CONT ×3 (02:02→18:40)
[2024-08-18] MEDS: LORazepam (*CRX) 1 MG TABLET PO ×3 (03:26→20:40)
[2024-08-18] MEDS: traZODone HCL 50 MG TABLET 200 MG PO ×2 (03:30→20:41)
[2024-08-18 05:58] LABS: Hematocrit 34.3 % (37.0-47.0); Hemoglobin 10.7 g/dL (12.0-15.0); Mean Corpuscular HGB Conc 31.2 g/dl (32-36); Mean Corpuscular Hemoglobin 29.6 pg (26-34); Mean Platelet Volume 8.9 fl (7.4-10.4); Platelet Count Result 254 k/mm3 (150-375); Red Blood Count 3.61 M/mm3 (4.2-5.4); Red Cell Distribution Width 15.4 % (11.5-14.5)
[2024-08-18 06:06] LABS: Alanine Aminotransferase 13 U/L (6-35); Albumin Level 4.3 g/dL (3.5-5.1); Alkaline Phosphatase 65 U/L (38-126); Anion Gap 11 mmol/L (4-12); Aspartate Amino Transferase 17 U/L (14-36); Bilirubin,Total 0.2 mg/dL (0.2-1.3); Blood Urea Nitrogen 16 mg/dL (7-17); Calcium 8.5 mg/dL (8.4-10.2); Carbon Dioxide 23 mmol/L (22-30); Chloride 105 mmol/L (98-107); Cholesterol 262 mg/dL (0-200); Estimated CRCL calculation 101 ml/min; Estimated Glomerular Filt Rate > 60; Glucose 97 mg/dL (65-110); HDL Direct 45 mg/dL; Potassium 3.9 mmol/L (3.4-5.0); Sodium 139 mmol/L (137-145); Triglycerides 364 mg/dL (<150)
[2024-08-18 06:17] LABS: LDL Cholesterol Direct 110 mg/dL
--- NOTE | 2024-08-18 07:39 | PC.NURSE ---
Insulin pump on during assessment. Glucose 100 and patient npo. Patient turned pump off and removed it from skin.
[2024-08-18 08:03] LABS: Glucose Point of Care 102 mg/dl (65-105)
[2024-08-18] MEDS: PANTOPRAZOLE SODIUM IV 40 MG VIAL IV PUSH (08:39)
--- NOTE | 2024-08-18 08:46 | P.PNIM_ITS ---
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 Qualified Code(s): E03.8 - Other specified hypothyroidism; E06.3 - Autoimmune thyroiditis Code(s): E03.9 - Hypothyroidism, unspecified Status: Acute Assessment and Plan: Continue levothyroxine (4) Type 2 diabetes mellitus: Qualifiers: Diabetes mellitus complication status: without complication Diabetes mellitus termite inspector insulin use: with prison use Qualified Code(s): E11.9 - Type 2 diabetes mellitus without complications; Z79.4 - termite inspector (current) use of insulin Code(s): E11.9 - Type 2 diabetes mellitus without complications Status: Chronic Assessment and Plan: Accu-Cheks q.6 while NPO (5) CAD (coronary artery disease): Code(s): I25.10 - Atherosclerotic heart disease of [place] coronary artery without angina pectoris Status: Acute Assessment and Plan: Continue Brilinta, metoprolol and aspirin Time Spent With Patient Time with patient: Greater than 35 minutes Subjective Date/time seen: 08/18/24 08:46 Interval history: 48-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 Triglycerides this morning are 364, CT with no evidence of acute pancreatitis, patient states this is her typical pancreatitis pain, she is complaining nausea not ready to uterus. Review of Systems Review of Systems: 12 systems were reviewed and are negativ e except for as per HPI. Exam Narrative: General: well appearing, appears stated age. HEENT: normocephalic, atraumatic. Mucous membranes moist. EOMI, PERRLA, bilateral sclera anicteric, no conjunctival injection. Neck supple without JVD, lymphadenopathy, or bruit. Respiratory: clear to ascultation bilaterally. No rales/rhonic/wheezes. Bilateral ports without erythema Cardiovascular: Regular rate and rhythm, normal S1-S2 upon ascultation. No murmurs, rubs, or clicks. PMI is nondisplaced, capillary refill less than 3 second. Abdomen: Soft, round, no pulsatile masses, nondistended No rebound, no guarding. No CVA tenderness, no hepatosplenomegaly. Bowel sounds present to all four quadrants. No high pitch or tinkling sounds, resonant to percussion. Tender to palpation Extremities: No cyanosis, clubbing, or edema present. Pulses are palpable 2/2. Active ROM to all four extremities. Neuro: Alert and orientated x 4. PERRLA. Cranial nerves 2-12 intact without focal deficit. Skin: Warm, dry, and intact, without rash, erythema, or lesion. Psych: pleasant, cooperative, normal speech, normal affect, no hallucinations, no dysarthia Objective Data Vital Signs Vital Signs: Vital Signs - 24 hr 08/17/24 18:53 08/18/24 01:14 08/18/24 01:40 Temperature 96.9 F L 97.0 F L Pulse Rate 120 H 83 84 Respiratory Rate 20 16 20 Blood Pressure 118/75 125/76 121/70 Pulse Oximetry 99 96 97 Oxygen Delivery Room Air 08/18/24 03:38 08/18/24 06:06 08/18/24 08:44 Temperature 97.3 F L Pulse Rate 78 83 Respiratory Rate 20 Blood Pressure 90/54 L 108/78 Pulse Oximetry 92 Oxygen Delivery Intake/Output Intake/Output: Intake & Output 08/15/24 08/16/24 08/17/24 08/18/24 23:59 23:59 23:59 23:59 Intake Total 1000 Balance 1000 Meds/Results Medications: Active Medications Generic Name Dose Route Start Last Admin Trade Name Freq PRN Reason Stop Dose Admin Acetaminophen 650 mg 08/18/24 01:23 Acetaminophen 325 Mg Tablet PO Q4H PRN Mild Pain (1-3) or Fever Hydrocodone Bitart/Acetaminophen 1 tab 08/18/24 03:03 Hydrocodone/Acetaminophen (*Crx) 10-325 Mg Tablet PO Q6H PRN Pain Rated 7-10 Lipase/Protease/Amylase 6 cap 08/18/24 08:00 Lipase/Amylase/Protease 12,000 Units Cap PO TIDWM [facility] Aspirin 81 mg 08/18/24 09:00 Aspirin 81 Mg Enteric Tablet PO QAM [facility] Atorvastatin Calcium 80 mg 08/18/24 21:00 Atorvastatin 40 Mg Tablet PO HS RAPHAEL Bupropion HCl 150 mg 08/18/24 21:00 Bupropion Hcl Sr (12 Hr) 150 Mg Tab PO HS RAPHAEL Citalopram Hydrobromide 40 mg 08/18/24 09:00 Citalopram Hydrobromide 20 Mg Tablet PO DAILY [facility] Dextrose 12.5 gm 08/18/24 02:57 Dextrose 50% 25 Gm/50 Ml Syringe IV PUSH PRN PRN Hypoglycemia Protocol Glucose 15 gm 08/18/24 02:57 Glucose Oral Gel 15 Gm Of Glucse In 37.5 Gm Tube PO PRN PRN Hypoglycemia Protocol Hydromorphone HCl 1 mg 08/18/24 01:23 08/18/24 02:01 Hydromorphone Hcl Inj (*Crx) 2 Mg/Ml Vial IV PUSH 1 mg Q4H PRN Administration Pain Rated 7-10 Sodium Chloride 1,000 mls @ 125 mls/hr 08/18/24 01:25 08/18/24 02:02 Normal Saline Iv IV CONT 125 mls/hr .Q8H RAPHAEL Administration Dextrose 1,000 mls @ 100 mls/hr 08/18/24 02:57 Dextrose 5% 1,000 Ml IVPB PRN PRN Hypoglycemia Protocol Insulin Aspart 2 - 5 units 08/18/24 08:00 08/18/24 08:36 Insulin Aspart (*Bkc) 100 Units/Ml SUB-Q Not Given TIDWM [facility] Protocol Insulin Aspart 1 - 2 units 08/18/24 21:00 Insulin Aspart (*Bkc) 100 Units/Ml SUB-Q HS [facility] Protocol Levothyroxine Sodium 200 mcg 08/18/24 06:30 08/18/24 06:42 Levothyroxine Sodium 100 Mcg Tablet PO Not Given DAILY@0630 RAPHAEL Lorazepam 1 mg 08/18/24 02:54 08/18/24 03:29 Lorazepam (*Crx) 1 Mg Tablet PO 1 mg QHS PRN Administration sleep Metoprolol Succinate 12.5 mg 08/18/24 09:00 Metoprolol Succinate Ext Rel 12.5 Mg Tabcr PO DAILY [facility] Ondansetron HCl 4 mg 08/18/24 01:23 Ondansetron Inj 4 Mg/2 Ml Vial IV PUSH Q4H PRN Nausea Pantoprazole Sodium 40 mg 08/18/24 09:00 08/18/24 08:39 Pantoprazole Sodium Iv 40 Mg Vial IV PUSH 40 mg QAM RAPHAEL Administration Ticagrelor 90 mg 08/18/24 09:00 Ticagrelor 90 Mg Tablet PO Q12HR RAPHAEL Trazodone HCl 200 mg 08/18/24 03:20 08/18/24 03:30 Trazodone Hcl 50 Mg Tablet PO 200 mg HS RAPHAEL Administration Radiology Results: ITS Impressions Abdomen/Pelvis CT 08/17/24 22:32 IMPRESSION: Hepatomegaly with steatosis. No CT evidence of pancreatitis. Inferior malrotation of the left kidney, with chronic mild pelviectasis and caliectasis, likely reflecting some degree of chronic UPJ obstruction, unchanged. Labs Labs: Laboratory Results - last 24 hr 08/17/24 08/17/24 08/18/24 19:41 19:41 05:15 WBC 9.8 7.0 RBC 3.96 L 3.61 L Hgb 11.6 L 10.7 L Hct 36.3 L 34.3 L MCV 91.7 95.0 MCH 29.3 29.6 MCHC 32.0 31.2 L RDW 15.3 H 15.4 H Plt Count 330 254 MPV 8.8 8.9 Immature Gran % (Auto) 0.8 H Neut % (Auto) 65.7 Lymph % (Auto) 27.0 [place] % (Auto) 4.9 Eos % (Auto) 1.1 Baso % (Auto) 0.5 Lymph # (Auto) 2.66 [place] # (Auto) 0.5 Eos # (Auto) 0.1 Baso # (Auto) 0.1 Abs Immat Gran (auto) 0.08 H Absolute Neuts (auto) 6.5 Absolute Nucleated RBC 0.000 Nucleated RBC % 0.0 PT 12.1 INR 0.9 APTT 31.6 Sodium 139 139 Potassium 4.1 3.9 Chloride 104 105 Carbon Dioxide 24 23 Anion Gap 11 11 BUN 18 H D 16 Creatinine 0.85 0.64 L Estim Creat Clear Calc 83 101 Estimated GFR > 60 > 60 Glucose 155 H 97 POC Capillary Glucose Calcium 9.4 8.5 Total Bilirubin 0.4 0.2 AST 21 17 ALT 16 13 Alkaline Phosphatase 77 65 Troponin I < 0.012 Total Protein 8.0 7.0 Albumin 4.8 4.3 Triglycerides 756 H Cancelled 364 H Cholesterol 262 H LDL Cholesterol Direct 110 HDL Direct 45 Lipase 92 Urine Color Yellow Urine Appearance Clear Urine pH 5.5 Ur Specific [place] 1.019 Urine Protein Negative Urine Glucose (UA) Negative Urine Ketones Negative Ur Blood (Man) Negative Urine Nitrate Negative Urine Bilirubin Negative Urine Urobilinogen 0.2 Leukocyte Esterase Rfl Negative 08/18/24 07:54 WBC RBC Hgb Hct MCV MCH MCHC RDW Plt Count MPV Immature Gran % (Auto) Neut % (Auto) Lymph % (Auto) [place] % (Auto) Eos % (Auto) Baso % (Auto) Lymph # (Auto) [place] # (Auto) Eos # (Auto) Baso # (Auto) Abs Immat Gran (auto) Absolute Neuts (auto) Absolute Nucleated RBC Nucleated RBC % PT INR APTT Sodium Potassium Chloride Carbon Dioxide Anion Gap BUN Creatinine Estim Creat Clear Calc Estimated GFR Glucose POC Capillary Glucose 102 Calcium Total Bilirubin AST ALT Alkaline Phosphatase Troponin I Total Protein Albumin Triglycerides Cholesterol LDL Cholesterol Direct HDL Direct Lipase Urine Color Urine Appearance Urine pH Ur Specific [place] Urine Protein Urine Glucose (UA) Urine Ketones Ur Blood (Man) Urine Nitrate Urine Bilirubin Urine Urobilinogen Leukocyte Esterase Rfl Quality VTE Prophylaxis VTE prophylaxis: mechanical ordered and pharmacologic ordered Hospitalist MIPS Advance Care Plan I have confirmed that the patient's Advanced Care Plan is present, code status is documented, or surrogate decision maker is listed in patient medical record.: Yes Medication Reconciliation I have utilized all available resources to obtain, update and review the patients current medications (includes all prescriptions, OTC, herbals, cannabis, and nutritional supplements).: Yes
[2024-08-18] MEDS: ONDANSETRON INJ 4 MG/2 ML VIAL IV PUSH ×3 (10:32→20:44)
[2024-08-18 11:52] LABS: Glucose Point of Care 126 mg/dl (65-105)
[2024-08-18] MEDS: SODIUM CHLORIDE 0.9% IV 500 ML IV CONT (11:58)
--- NOTE | 2024-08-18 13:38 | PC.NURSE ---
Patient refused am meds due to nausea. sharri Fields MEDICATION TECHNICIAN notified. Sharri also notified of soft bp this am and metoprolol held
[2024-08-18] MEDS: diphenhydrAMINE HCl INJ 50 MG/ML VIAL 25 MG IV PUSH ×2 (13:41→20:41)
[2024-08-18] MEDS: HYDROcodone/acetaminophen (*CRX) 10-325 MG TABLET 1 TAB PO ×2 (15:14→20:39)
[2024-08-18 17:06] LABS: Glucose Point of Care 150 mg/dl (65-105)
[2024-08-18] MEDS: ATORVASTATIN 40 MG TABLET 80 MG PO (20:39)
[2024-08-18] MEDS: TICAGRELOR 90 MG TABLET PO (20:40)
[2024-08-18] MEDS: buPROPion HCL SR (12 HR) 150 MG TAB PO (20:41)
[2024-08-18 21:36] LABS: Glucose Point of Care 188 mg/dl (65-105)
[2024-08-19] MEDS: HYDROmorphone HCL INJ (*CRX) 2 MG/ML VIAL 1 MG IV PUSH ×6 (01:22→22:18)
[2024-08-19] MEDS: SODIUM CHLORIDE 0.9% IV 1,000 ML 125 ML IV CONT ×3 (01:24→16:20)
[2024-08-19] MEDS: diphenhydrAMINE HCl INJ 50 MG/ML VIAL 25 MG IV PUSH ×3 (02:47→20:51)
[2024-08-19 05:00] VITALS: BP 120/71; PULSE 81; RESP 20; TEMP 36.8; O2SAT 98
[2024-08-19] MEDS: LEVOTHYROXINE SODIUM 100 MCG TABLET 200 MCG PO (05:33)
[2024-08-19] MEDS: ONDANSETRON INJ 4 MG/2 ML VIAL IV PUSH ×2 (07:34→11:57)
[2024-08-19] MEDS: HYDROcodone/acetaminophen (*CRX) 10-325 MG TABLET 1 TAB PO ×2 (07:35→20:52)
[2024-08-19 07:38] LABS: Glucose Point of Care 131 mg/dl (65-105)
[2024-08-19 08:00] VITALS: O2SAT 98
[2024-08-19] MEDS: ASPIRIN 81 MG ENTERIC TABLET PO (08:03)
[2024-08-19 08:04] VITALS: PULSE 70
[2024-08-19] MEDS: CITALOPRAM HYDROBROMIDE 20 MG TABLET 40 MG PO (08:04)
[2024-08-19] MEDS: TICAGRELOR 90 MG TABLET PO ×2 (08:04→20:52)
[2024-08-19] MEDS: METOPROLOL SUCCINATE EXT REL 12.5 MG TABCR PO (08:04)
[2024-08-19] MEDS: PANTOPRAZOLE SODIUM IV 40 MG VIAL IV PUSH (08:04)
--- NOTE | 2024-08-19 08:06 | P.PNIM_ITS ---
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 Qualified Code(s): E03.8 - Other specified hypothyroidism; E06.3 - Autoimmune thyroiditis Code(s): E03.9 - Hypothyroidism, unspecified Status: Acute Assessment and Plan: Continue levothyroxine (4) Type 2 diabetes mellitus: Qualifiers: Diabetes mellitus complication status: without complication Diabetes mellitus [place] headgate 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 insulin use: with [facility] use Qualified Code(s): E11.9 - Type 2 diabetes mellitus without complications; Z79.4 - 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 container terminal (current) use of insulin Code(s): E11.9 - Type 2 diabetes mellitus without complications Status: Chronic Assessment and Plan: Accu-Cheks q.6 while NPO (5) CAD (coronary artery disease): Code(s): I25.10 - Atherosclerotic heart disease of [place] coronary artery without angina pectoris Status: Acute Assessment and Plan: Continue Brilinta, metoprolol and aspirin Time Spent With Patient Time: Subjective Date/time seen: 08/19/24 08:06 Interval history: 48-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 08/19/2024 Patient sitting comfortably in bed at time of exam. Still endorses LUQ abdominal pain, no improvement since yesterday. Still receiving IVF for hydration and Dilaudid for PRN pain. Will continue to monitor. Review of Systems Review of Systems: 12 systems were reviewed and are negativ e except for as per HPI. Exam Narrative: General: well appearing, appears stated age. HEENT: normocephalic, atraumatic. Mucous membranes moist. EOMI, PERRLA, bilateral sclera anicteric, no conjunctival injection. Neck supple without JVD, lymphadenopathy, or bruit. Respiratory: clear to ascultation bilaterally. No rales/rhonic/wheezes. Bilateral ports without erythema Cardiovascular: Regular rate and rhythm, normal S1-S2 upon ascultation. No murmurs, rubs, or clicks. PMI is nondisplaced, capillary refill less than 3 second. Abdomen: LUQ tenderness to palpation. Soft, round, no pulsatile masses, nondistended No rebound, no guarding. No CVA tenderness, no hepatosplenomegaly. Bowel sounds present to all four quadrants. No high pitch or tinkling sounds, resonant to percussion. Extremities: No cyanosis, clubbing, or edema present. Pulses are palpable 2/2. Active ROM to all four extremities. Neuro: Alert and orientated x 4. PERRLA. Cranial nerves 2-12 intact without focal deficit. Skin: Warm, dry, and intact, without rash, erythema, or lesion. Psych: pleasant, cooperative, normal speech, normal affect, no hallucinations, no dysarthia Objective Data Vital Signs Vital Signs: Vital Signs - 24 hr 08/18/24 08:44 08/18/24 13:56 08/18/24 21:55 Temperature 97.6 F 98.2 F Pulse Rate 78 83 Respiratory Rate 14 20 Blood Pressure 108/78 93/58 L 107/65 Pulse Oximetry 95 98 08/19/24 05:00 08/19/24 08:04 Temperature 98.2 F Pulse Rate 81 70 Respiratory Rate 20 Blood Pressure 120/71 Pulse Oximetry 98 Intake/Output Intake/Output: Intake & Output 08/16/24 08/17/24 08/18/24 08/19/24 23:59 23:59 23:59 23:59 Intake Total 3000 841.7 Balance 3000 841.7 Meds/Results Medications: Active Medications Generic Name Dose Route Start Last Admin Trade Name Freq PRN Reason Stop Dose Admin Acetaminophen 650 mg 08/18/24 01:23 Acetaminophen 325 Mg Tablet PO Q4H PRN Mild Pain (1-3) or Fever Hydrocodone Bitart/Acetaminophen 1 tab 08/18/24 03:03 08/19/24 07:35 Hydrocodone/Acetaminophen (*Crx) 10-325 Mg Tablet PO 1 tab Q6H PRN Administration Pain Rated 7-10 Lipase/Protease/Amylase 6 cap 08/18/24 08:00 08/19/24 08:03 Lipase/Amylase/Protease 12,000 Units Cap PO Not Given TIDWM RAPHAEL Aspirin 81 mg 08/18/24 09:00 08/19/24 08:03 Aspirin 81 Mg Enteric Tablet PO 81 mg QAM RAPHAEL Administration Atorvastatin Calcium 80 mg 08/18/24 21:00 08/18/24 20:39 Atorvastatin 40 Mg Tablet PO 80 mg HS RAPHAEL Administration Bupropion HCl 150 mg 08/18/24 21:00 08/18/24 20:41 Bupropion Hcl Sr (12 Hr) 150 Mg Tab PO 150 mg HS RAPHAEL Administration Citalopram Hydrobromide 40 mg 08/18/24 09:00 08/19/24 08:04 Citalopram Hydrobromide 20 Mg Tablet PO 40 mg DAILY RAPHAEL Administration Dextrose 12.5 gm 08/18/24 02:57 Dextrose 50% 25 Gm/50 Ml Syringe IV PUSH PRN PRN Hypoglycemia Protocol Diphenhydramine HCl 25 mg 08/18/24 13:32 08/19/24 02:47 Diphenhydramine Hcl Inj 50 Mg/Ml Vial IV PUSH 25 mg Q4H PRN Administration Itching Glucose 15 gm 08/18/24 02:57 Glucose Oral Gel 15 Gm Of Glucse In 37.5 Gm Tube PO PRN PRN Hypoglycemia Protocol Hydromorphone HCl 1 mg 08/18/24 01:23 08/19/24 05:32 Hydromorphone Hcl Inj (*Crx) 2 Mg/Ml Vial IV PUSH 1 mg Q4H PRN Administration Pain Rated 7-10 Sodium Chloride 1,000 mls @ 125 mls/hr 08/18/24 01:25 08/19/24 01:24 Normal Saline Iv IV CONT 125 mls/hr .Q8H RAPHAEL Administration Dextrose 1,000 mls @ 100 mls/hr 08/18/24 02:57 Dextrose 5% 1,000 Ml IVPB PRN PRN Hypoglycemia Protocol Insulin Aspart 2 - 5 units 08/18/24 08:00 08/19/24 07:32 Insulin Aspart (*Bkc) 100 Units/Ml SUB-Q Not Given TIDWM RAPHAEL Protocol Insulin Aspart 1 - 2 units 08/18/24 21:00 08/18/24 21:30 Insulin Aspart (*Bkc) 100 Units/Ml SUB-Q Not Given HS RAPHAEL Protocol Levothyroxine Sodium 200 mcg 08/18/24 06:30 08/19/24 05:33 Levothyroxine Sodium 100 Mcg Tablet PO 200 mcg DAILY@0630 RAPHAEL Administration Lorazepam 1 mg 08/18/24 02:54 08/18/24 20:40 Lorazepam (*Crx) 1 Mg Tablet PO 1 mg QHS PRN Administration sleep Metoprolol Succinate 12.5 mg 08/18/24 09:00 08/19/24 08:04 Metoprolol Succinate Ext Rel 12.5 Mg Tabcr PO 12.5 mg DAILY RAPHAEL Administration Miscellaneous Information 0 each 08/18/24 00:01 08/19/24 05:34 Tryngolza Send To Pharmacy For Verification Once Brought In XX 09/17/24 00:00 Not Given CLARIFY RAPHAEL Non-Formulary Medication 1 unit 08/18/24 15:15 Tryngolza SUBDERMAL 09/17/24 15:14 ONCE RAPHAEL Ondansetron HCl 4 mg 08/18/24 01:23 08/19/24 07:34 Ondansetron Inj 4 Mg/2 Ml Vial IV PUSH 4 mg Q4H PRN Administration Nausea Pantoprazole Sodium 40 mg 08/18/24 09:00 08/19/24 08:04 Pantoprazole Sodium Iv 40 Mg Vial IV PUSH 40 mg QAM RAPHAEL Administration Ticagrelor 90 mg 08/18/24 09:00 08/19/24 08:04 Ticagrelor 90 Mg Tablet PO 90 mg Q12HR RAPHAEL Administration Trazodone HCl 200 mg 08/18/24 03:20 08/18/24 20:41 Trazodone Hcl 50 Mg Tablet PO 200 mg HS RAPHAEL Administration Radiology Results: ITS Impressions Abdomen/Pelvis CT 08/17/24 22:32 IMPRESSION: Hepatomegaly with steatosis. No CT evidence of pancreatitis. Inferior malrotation of the left kidney, with chronic mild pelviectasis and caliectasis, likely reflecting some degree of chronic UPJ obstruction, unchanged. Labs Labs: Laboratory Results - last 24 hr 08/18/24 08/18/24 08/18/24 11:42 16:59 21:15 POC Capillary Glucose 126 H 150 H 188 H 08/19/24 07:29 POC Capillary Glucose 131 H Quality VTE Prophylaxis VTE prophylaxis: mechanical ordered and pharmacologic ordered
[2024-08-19 08:55] LABS: Basophils Percent Auto 0.6 % (0.2-1.2); Eosinophils Absolute Auto 0.1 K/mm3 (0-0.3); Eosinophils Percent Auto 1.5 % (0-4.4); Hematocrit 33.5 % (37.0-47.0); Hemoglobin 10.3 g/dL (12.0-15.0); Immature Granulocyte Absolute 0.04 K/mm3 (0.00-0.031); Immature Granulocyte Percent A 0.8 % (0-0.5); Lymphocytes Absolute Auto 1.79 K/mm3 (0.9-3.2); Mean Corpuscular HGB Conc 30.7 g/dl (32-36); Mean Corpuscular Hemoglobin 29.2 pg (26-34); Mean Corpuscular Volume 94.9 fl (80-100); Mean Platelet Volume 8.7 fl (7.4-10.4); Monocytes Absolute Auto 0.3 K/mm3 (0.1-0.6); Monocytes Percent Auto 6.1 % (2.6-8.5); Platelet Count Result 214 k/mm3 (150-375); Red Blood Count 3.53 M/mm3 (4.2-5.4); Red Cell Distribution Width 15.5 % (11.5-14.5); White Blood Count 5.3 K/mm3 (4.5-10.0)
[2024-08-19 09:18] LABS: Alanine Aminotransferase 14 U/L (6-35); Albumin Level 4.1 g/dL (3.5-5.1); Alkaline Phosphatase 64 U/L (38-126); Anion Gap 9 mmol/L (4-12); Aspartate Amino Transferase 20 U/L (14-36); Bilirubin,Total 0.3 mg/dL (0.2-1.3); Blood Urea Nitrogen 7 mg/dL (7-17); Calcium 8.3 mg/dL (8.4-10.2); Carbon Dioxide 25 mmol/L (22-30); Chloride 106 mmol/L (98-107); Estimated CRCL calculation 97 ml/min; Estimated Glomerular Filt Rate > 60; Glucose 176 mg/dL (65-110); Potassium 3.8 mmol/L (3.4-5.0); Sodium 140 mmol/L (137-145)
[2024-08-19 11:11] LABS: Glucose Point of Care 126 mg/dl (65-105)
[2024-08-19 13:00] VITALS: BP 118/77; PULSE 81; RESP 16; TEMP 36.8; O2SAT 98
--- NOTE | 2024-08-19 14:24 | PC.NURSE ---
Mike Rogers [employer]OT AND SHOE LABORER notified of patient c/o of intermittent chest tightness when taking deep breath. Ra sat 98% HR 78.
--- NOTE | 2024-08-19 14:26 | ECG_ITS ---
Test Date: 2024-08-19 14:49:13 Measurements Intervals [place] Rate: 70 P: 42 MO: 172 QRS: 17 QRSD: 82 T: 6 QT: 406 QTc: 440 Interpretive Statements SINUS RHYTHM CONSIDER INFERIOR INFARCT, AGE INDETERMINATE ABNORMAL ECG Compared to ECG 08/17/2024 19:47:44 No significant changes Electronically Signed On 08-19-2024 15:05:08 CDT by Baron Bowers D.O.
[2024-08-19 16:16] LABS: Glucose Point of Care 130 mg/dl (65-105)
[2024-08-19 20:45] VITALS: PULSE 79; RESP 14; O2SAT 97
[2024-08-19 20:47] LABS: Glucose Point of Care 154 mg/dl (65-105)
[2024-08-19] MEDS: buPROPion HCL SR (12 HR) 150 MG TAB PO (20:52)
[2024-08-19] MEDS: ATORVASTATIN 40 MG TABLET 80 MG PO (20:52)
[2024-08-19] MEDS: traZODone HCL 50 MG TABLET 200 MG PO (20:52)
[2024-08-19 20:58] VITALS: BP 138/71; PULSE 79; RESP 14; TEMP 36.4; O2SAT 97
[2024-08-20] MEDS: SODIUM CHLORIDE 0.9% IV 1,000 ML 125 ML IV CONT ×3 (00:20→22:56)
[2024-08-20] MEDS: HYDROmorphone HCL INJ (*CRX) 2 MG/ML VIAL 1 MG IV PUSH ×6 (02:05→22:10)
[2024-08-20 05:00] VITALS: BP 130/70; PULSE 96; RESP 12; TEMP 35.8; O2SAT 98
[2024-08-20] MEDS: diphenhydrAMINE HCl INJ 50 MG/ML VIAL 25 MG IV PUSH ×4 (06:10→18:41)
[2024-08-20] MEDS: LEVOTHYROXINE SODIUM 100 MCG TABLET 200 MCG PO (06:10)
--- NOTE | 2024-08-20 07:39 | P.PNIM_ITS ---
Progress Note: A&P Assessment and Plan (1) Abdominal pain: Qualifiers: Abdominal location: right upper quadrant Qualified Code(s): R10.11 - Right upper quadrant pain Code(s): R10.9 - Unspecified abdominal pain Status: Acute Assessment and Plan: * Chronic abdominal pain likely secondary to Hypertriglyceridemia and Chronic Pancreatitis * Lipase wnl, TG 364 * IV Dilaudid * IVF for hydration * Diet as tolerated (2) Chronic pancreatitis: Code(s): K86.1 - Other chronic pancreatitis Status: Acute Assessment and Plan: - chronic - IVF: 9% NS 125ml/hr - trend lipase, currently: 92 - AST, ALT, total bilirubin. trend LFTs. - pain control with Dilaudid, plan to taper - Zofran prn for nausea - CT abd/pelvis: Hepatomegaly with steatosis. No CT evidence of pancreatitis. Inferior malrotation of the left kidney, unchanged - GI consulted, awaiting recs - Clear liquid diet, advance patient's diet as tolerated. 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6 while NPO (6) CAD (coronary artery disease): Code(s): I25.10 - Atherosclerotic heart disease of elim ira coronary artery without angina pectoris Status: Acute Assessment and Plan: Continue Brilinta, metoprolol and aspirin Time Spent With Patient Time: Subjective Date/time seen: 08/20/24 07:39 Interval history: 48-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 08/20/2024 Patient sitting comfortably in bed at time of exam. Still endorses LUQ abdominal pain, mild improvement since yesterday. Still receiving IVF for hydration and Dilaudid for PRN pain. Will continue to monitor. Plan to taper Dilaudid. Review of Systems Review of Systems: 12 systems were reviewed and are negativ e except for as per HPI. Exam Narrative: General: well appearing, appears stated age. HEENT: normocephalic, atraumatic. Mucous membranes moist. EOMI, PERRLA, bilateral sclera anicteric, no conjunctival injection. Neck supple without JVD, lymphadenopathy, or bruit. Respiratory: clear to ascultation bilaterally. No rales/rhonic/wheezes. Bilateral ports without erythema Cardiovascular: Regular rate and rhythm, normal S1-S2 upon ascultation. No murmurs, rubs, or clicks. PMI is nondisplaced, capillary refill less than 3 second. Abdomen: LUQ tenderness to palpation. Soft, round, no pulsatile masses, nondistended No rebound, no guarding. No CVA tenderness, no hepatosplenomegaly. Bowel sounds present to all four quadrants. No high pitch or tinkling sounds, resonant to percussion. Extremities: No cyanosis, clubbing, or edema present. Pulses are palpable 2/2. Active ROM to all four extremities. Neuro: Alert and orientated x 4. PERRLA. Cranial nerves 2-12 intact without focal deficit. Skin: Warm, dry, and intact, without rash, erythema, or lesion. Psych: pleasant, cooperative, normal speech, normal affect, no hallucinations, no dysarthia Objective Data Vital Signs Vital Signs: Vital Signs - 24 hr 08/19/24 08:00 08/19/24 08:04 08/19/24 13:00 Temperature 98.2 F Pulse Rate 70 81 Respiratory Rate 16 Blood Pressure 118/77 Pulse Oximetry 98 98 Oxygen Delivery Room Air 08/19/24 20:45 08/19/24 20:58 08/20/24 05:00 Temperature 97.6 F 96.4 F L Pulse Rate 79 79 96 Respiratory Rate 14 14 12 Blood Pressure 138/71 130/70 Pulse Oximetry 97 97 98 Oxygen Delivery Room Air Intake/Output Intake/Output: Intake & Output 08/17/24 08/18/24 08/19/24 08/20/24 23:59 23:59 23:59 23:59 Intake Total 3000 4357.5 1240 Balance 3000 4357.5 1240 Meds/Results Medications: Active Medications Generic Name Dose Route Start Last Admin Trade Name Freq PRN Reason Stop Dose Admin Acetaminophen 650 mg 08/18/24 01:23 Acetaminophen 325 Mg Tablet PO Q4H PRN Mild Pain (1-3) or Fever Hydrocodone Bitart/Acetaminophen 1 tab 08/18/24 03:03 08/19/24 20:52 Hydrocodone/Acetaminophen (*Crx) 10-325 Mg Tablet PO 1 tab Q6H PRN Administration Pain Rated 7-10 Lipase/Protease/Amylase 6 cap 08/18/24 08:00 08/19/24 16:21 Lipase/Amylase/Protease 12,000 Units Cap PO Not Given TIDWM RAPHAEL Aspirin 81 mg 08/18/24 09:00 08/19/24 08:03 Aspirin 81 Mg Enteric Tablet PO 81 mg QAM RAPHAEL Administration Atorvastatin Calcium 80 mg 08/18/24 21:00 08/19/24 20:52 Atorvastatin 40 Mg Tablet PO 80 mg HS RAPHAEL Administration Bupropion HCl 150 mg 08/18/24 21:00 08/19/24 20:52 Bupropion Hcl Sr (12 Hr) 150 Mg Tab PO 150 mg HS RAPHAEL Administration Citalopram Hydrobromide 40 mg 08/18/24 09:00 08/19/24 08:04 Citalopram Hydrobromide 20 Mg Tablet PO 40 mg DAILY RAPHAEL Administration Dextrose 12.5 gm 08/18/24 02:57 Dextrose 50% 25 Gm/50 Ml Syringe IV PUSH PRN PRN Hypoglycemia Protocol Diphenhydramine HCl 25 mg 08/18/24 13:32 08/20/24 06:10 Diphenhydramine Hcl Inj 50 Mg/Ml Vial IV PUSH 25 mg Q4H PRN Administration Itching Glucose 15 gm 08/18/24 02:57 Glucose Oral Gel 15 Gm Of Glucse In 37.5 Gm Tube PO PRN PRN Hypoglycemia Protocol Hydromorphone HCl 1 mg 08/18/24 01:23 08/20/24 06:10 Hydromorphone Hcl Inj (*Crx) 2 Mg/Ml Vial IV PUSH 1 mg Q4H PRN Administration Pain Rated 7-10 Sodium Chloride 1,000 mls @ 125 mls/hr 08/18/24 01:25 08/20/24 00:20 Normal Saline Iv IV CONT 125 mls/hr .Q8H RAPHAEL Administration Dextrose 1,000 mls @ 100 mls/hr 08/18/24 02:57 Dextrose 5% 1,000 Ml IVPB PRN PRN Hypoglycemia Protocol Insulin Aspart 2 - 5 units 08/18/24 08:00 08/19/24 16:21 Insulin Aspart (*Bkc) 100 Units/Ml SUB-Q Not Given TIDWM [facility] Protocol Insulin Aspart 1 - 2 units 08/18/24 21:00 08/19/24 20:52 Insulin Aspart (*Bkc) 100 Units/Ml SUB-Q Not Given HS [facility] Protocol Levothyroxine Sodium 200 mcg 08/18/24 06:30 08/20/24 06:10 Levothyroxine Sodium 100 Mcg Tablet PO 200 mcg DAILY@0630 RAPHAEL Administration Lorazepam 1 mg 08/18/24 02:54 08/18/24 20:40 Lorazepam (*Crx) 1 Mg Tablet PO 1 mg QHS PRN Administration sleep Metoprolol Succinate 12.5 mg 08/18/24 09:00 08/19/24 08:04 Metoprolol Succinate Ext Rel 12.5 Mg Tabcr PO 12.5 mg DAILY RAPHAEL Administration Miscellaneous Information 0 each 08/18/24 00:01 08/19/24 05:34 Tryngolza Send To Pharmacy For Verification Once Brought In XX 09/17/24 00:00 Not Given CLARIFY [facility] Non-Formulary Medication 1 unit 08/18/24 15:15 Tryngolza SUBDERMAL 09/17/24 15:14 ONCE RAPHAEL Ondansetron HCl 4 mg 08/18/24 01:23 08/19/24 11:57 Ondansetron Inj 4 Mg/2 Ml Vial IV PUSH 4 mg Q4H PRN Administration Nausea Pantoprazole Sodium 40 mg 08/18/24 09:00 08/19/24 08:04 Pantoprazole Sodium Iv 40 Mg Vial IV PUSH 40 mg QAM RAPHAEL Administration Ticagrelor 90 mg 08/18/24 09:00 08/19/24 20:52 Ticagrelor 90 Mg Tablet PO 90 mg Q12HR RAPHAEL Administration Trazodone HCl 200 mg 08/18/24 03:20 08/19/24 20:52 Trazodone Hcl 50 Mg Tablet PO 200 mg HS RAPHAEL Administration Radiology Results: ITS Impressions Abdomen/Pelvis CT 08/17/24 22:32 IMPRESSION: Hepatomegaly with steatosis. No CT evidence of pancreatitis. Inferior malrotation of the left kidney, with chronic mild pelviectasis and caliectasis, likely reflecting some degree of chronic UPJ obstruction, unchanged. Labs Labs: Laboratory Results - last 24 hr 04/08/19/24 08/19/24 08:38 11:06 16:06 WBC 5.3 RBC 3.53 L Hgb 10.3 L Hct 33.5 L MCV 94.9 MCH 29.2 MCHC 30.7 L RDW 15.5 H Plt Count 214 MPV 8.7 Immature Gran % (Auto) 0.8 H Neut % (Auto) 57.0 Lymph % (Auto) 34.0 [place] % (Auto) 6.1 Eos % (Auto) 1.5 Baso % (Auto) 0.6 Lymph # (Auto) 1.79 [place] # (Auto) 0.3 Eos # (Auto) 0.1 Baso # (Auto) 0.0 Abs Immat Gran (auto) 0.04 H Absolute Neuts (auto) 3.0 Absolute Nucleated RBC 0.000 Nucleated RBC % 0.0 Sodium 140 Potassium 3.8 Chloride 106 Carbon Dioxide 25 Anion Gap 9 BUN 7 D Creatinine 0.67 L Estim Creat Clear Calc 97 Estimated GFR > 60 Glucose 176 H POC Capillary Glucose 126 H 130 H Calcium 8.3 L Total Bilirubin 0.3 AST 20 ALT 14 Alkaline Phosphatase 64 Total Protein 7.0 Albumin 4.1 08/19/24 20:02 WBC RBC Hgb Hct MCV MCH MCHC RDW Plt Count MPV Immature Gran % (Auto) Neut % (Auto) Lymph % (Auto) [place] % (Auto) Eos % (Auto) Baso % (Auto) Lymph # (Auto) [place] # (Auto) Eos # (Auto) Baso # (Auto) Abs Immat Gran (auto) Absolute Neuts (auto) Absolute Nucleated RBC Nucleated RBC % Sodium Potassium Chloride Carbon Dioxide Anion Gap BUN Creatinine Estim Creat Clear Calc Estimated GFR Glucose POC Capillary Glucose 154 H Calcium Total Bilirubin AST ALT Alkaline Phosphatase Total Protein Albumin Quality VTE Prophylaxis VTE prophylaxis: mechanical ordered and pharmacologic ordered
[2024-08-20 07:47] LABS: Glucose Point of Care 143 mg/dl (65-105)
[2024-08-20 07:59] LABS: Basophils Percent Auto 0.4 % (0.2-1.2); Eosinophils Absolute Auto 0.1 K/mm3 (0-0.3); Eosinophils Percent Auto 1.8 % (0-4.4); Hematocrit 32.9 % (37.0-47.0); Hemoglobin 10.5 g/dL (12.0-15.0); Immature Granulocyte Absolute 0.03 K/mm3 (0.00-0.031); Immature Granulocyte Percent A 0.5 % (0-0.5); Lymphocytes Absolute Auto 1.73 K/mm3 (0.9-3.2); Lymphocytes Percent Auto 31.1 % (18.3-44.2); Mean Corpuscular HGB Conc 31.9 g/dl (32-36); Mean Corpuscular Hemoglobin 29.7 pg (26-34); Mean Corpuscular Volume 93.2 fl (80-100); Mean Platelet Volume 8.7 fl (7.4-10.4); Monocytes Absolute Auto 0.3 K/mm3 (0.1-0.6); Monocytes Percent Auto 5.4 % (2.6-8.5); Neutrophils Absolute Auto 3.4 K/mm3 (1.3-6.7); Neutrophils Percent Auto 60.8 % (45.5-73.1); Platelet Count Result 208 k/mm3 (150-375); Red Blood Count 3.53 M/mm3 (4.2-5.4); Red Cell Distribution Width 14.8 % (11.5-14.5); White Blood Count 5.6 K/mm3 (4.5-10.0)
[2024-08-20 08:00] VITALS: O2SAT 98
[2024-08-20 08:11] LABS: Alanine Aminotransferase 14 U/L (6-35); Albumin Level 4.2 g/dL (3.5-5.1); Alkaline Phosphatase 65 U/L (38-126); Anion Gap 5 mmol/L (4-12); Aspartate Amino Transferase 25 U/L (14-36); Bilirubin,Total 0.3 mg/dL (0.2-1.3); Blood Urea Nitrogen 4 mg/dL (7-17); Calcium 8.6 mg/dL (8.4-10.2); Carbon Dioxide 30 mmol/L (22-30); Chloride 105 mmol/L (98-107); Estimated CRCL calculation 104 ml/min; Estimated Glomerular Filt Rate > 60; Glucose 132 mg/dL (65-110); Sodium 140 mmol/L (137-145)
[2024-08-20 08:26] VITALS: PULSE 80
[2024-08-20] MEDS: TICAGRELOR 90 MG TABLET PO ×2 (08:26→20:50)
[2024-08-20] MEDS: ASPIRIN 81 MG ENTERIC TABLET PO (08:26)
[2024-08-20] MEDS: CITALOPRAM HYDROBROMIDE 20 MG TABLET 40 MG PO (08:26)
[2024-08-20] MEDS: METOPROLOL SUCCINATE EXT REL 12.5 MG TABCR PO (08:26)
[2024-08-20] MEDS: PANTOPRAZOLE SODIUM IV 40 MG VIAL IV PUSH (08:26)
[2024-08-20] MEDS: HYDROcodone/acetaminophen (*CRX) 10-325 MG TABLET 1 TAB PO ×2 (08:31→17:19)
[2024-08-20] MEDS: ONDANSETRON INJ 4 MG/2 ML VIAL IV PUSH (08:31)
[2024-08-20 08:43] LABS: Free T4 Free Thyroxine 0.59 ng/dL (0.78-2.19)
[2024-08-20 09:55] LABS: Magnesium 1.6 mg/dL (1.6-2.3)
[2024-08-20 11:47] LABS: Glucose Point of Care 108 mg/dl (65-105)
[2024-08-20 14:00] VITALS: BP 118/67; PULSE 73; RESP 14; TEMP 36.7; O2SAT 96
[2024-08-20] MEDS: DOCUSATE SODIUM 100 MG CAPSULE PO ×2 (14:53→20:50)
--- NOTE | 2024-08-20 16:41 | P.CONGI_ITS ---
Assessment and Plan Assessment and plan (1) Epigastric abdominal pain: Code(s): R10.13 - Epigastric pain Status: Acute Assessment and Plan: pain probably from chronic pancreatitis, dysmotility (recent GES confirmed gastroparesis), DM, etc on liquid diet for now liver enzymes and lipase normal, CT scan did not show acute pancreatitis medical support (2) Chronic pancreatitis: Onset Date: ~09/02/23 Qualifiers: Pancreatitis type: other Qualified Code(s): K86.1 - Other chronic pancreatitis Code(s): K86.1 - Other chronic pancreatitis Status: Chronic (3) Nausea & vomiting: Code(s): R11.2 - Nausea with vomiting, unspecified Status: Acute (4) Hypertriglyceridemia: Code(s): E78.1 - Pure hyperglyceridemia Status: Chronic Assessment and Plan: she will start soon speficit treatment- Tryngolza (5) Type 2 diabetes mellitus: Qualifiers: 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: with rotary planer set up operator use Diabetes mellitus complication status: without complication Qualified Code(s): E11.9 - Type 2 diabetes mellitus without complications; Z79.4 - dental patient coordinator (current) use of insulin Code(s): E11.9 - Type 2 diabetes mellitus without complications Status: Chronic (6) Gastroparesis: Code(s): K31.84 - Gastroparesis Status: Acute Assessment and Plan: antiemetics GI Consult Note Consult date/time: 08/20/24 16:41 Reason for consult: abdominal pain, chronic pancreatitis, high TG HPI: Casandra Jones is a 48 year old female who is known to our service, she has history of DM, episodes of recurring nausea vomiting and abdominal pain for which she has been admitted to hospital multiple times. She suffers with hyper triglyceridemia that required plasmapheresis with chronic pancreatitis admitted to hospital several times, she is on creon.? Also CAD s/p stents x3 on brilinta. Last EGD 06/2023 normal. GES 06/2024 c/w gastroparesis. She [facility] admitted few days ago with nausea and worsening abdominal pain, CT scan did not show pancreatitis. TG 700 but down to 360, normal liver enzymes. She was just approved to start using next week Tryngolza to treat high TG Review of Systems 2 Constitutional: Constitutional: Denies chills Eyes: Eyes: Denies change in vision ENT: Denies dysphagia Cardiovascular: Cardiovascular: Denies leg edema and Denies palpitations Respiratory: Respiratory: Denies cough and Denies dyspnea Gastrointestinal: Gastrointestinal: Reports abdominal pain and Reports nausea Genitourinary: Genitourinary: Denies dysuria Musculoskeletal: Musculoskeletal: Denies arthralgias Integumentary/Breasts: Skin/Breast: Denies rash Neurologic: Denies focal weakness Psychiatric: Psychiatric: Reports no additional psychiatric complaints Endocrine: Endocrine: Denies cold intolerance [facility] Past Medical History Medical History (Updated 08/20/24 @ 16:46 by Tomas Mullins MD) Gastroparesis Chylomicronemia syndrome CAD (coronary artery disease) Anxiety BMI 31.0-31.9,adult Hx of long-term use of blood thinners Abnormal CT scan, esophagus Nausea Occult blood in stools Colon cancer screening Hypertriglyceridemia PCOS (polycystic ovarian syndrome) GERD (gastroesophageal reflux disease) 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 Allergic rhinitis Insulin dependent diabetes mellitus Chronic pancreatitis (~09/02/23) Port-A-Cath in place Lipoprotein deficiency Hyperlipemia Headache Surgical History Surgical History History of wisdom tooth extraction History of tubal ligation History of partial hysterectomy History of endometrial ablation History of appendectomy History of loop electrical excision procedure (LEEP) History of exploratory laparotomy History of dilatation and curettage History of conization of cervix History of tonsillectomy Family History Family History Father Alcohol abuse Hypercholesteremia Hypertension Family history of alcoholism Family history of cardiovascular disease Diabetes mellitus Mother Hypercholesteremia Hypothyroid Cerebrovascular accident Family history of cardiovascular disease Diabetes mellitus Grandparent Skin cancer Colon cancer Heart disease Hypothyroid Cerebrovascular accident Sibling Autoimmune disorder Hypothyroid Kidney disorder Hypertension Diabetes mellitus Other Family history of kidney disease Social History Social History Social History: She smokes up to 1ppd since age 16yo. No alcohol or drug use. She has dog and a cat at home. Surrogate medical decision maker: José Miguel Bryansergio, spouse. Code status: Full Smoking packs per day: 0.5 Smoking cigarettes per day: 10.0 Years smoked: 20 Smoking pack-years: 10.00 Smoking status: Current every day smoker Tobacco type: cigarettes Second hand tobacco smoke exposure: No Alcohol intake: never Drinks per week: 0 Substance use: never Substance use type: does not use Do You Feel Safe in your Home?: Yes Lack of Transportation: No Lack of Food: Never True Current Housing: I Have Housing Concerned About Future Housing: No Difficulty Paying Gas/Electric Bills: No Difficulty Paying for Meds: No Currently Unemployed: No Education: Associate Degree Difficulty w/ Childcare or Family Care: No Living arrangements: with family Occupation/Education: retired 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 Gender identity (if verbalized by the patient): Female Spiritual care concerns: No Meds Home Medications and Allergies Home Medications ?Medication ?Instructions ?Recorded ?Confirmed ?Type metformin 500 mg tablet 1,000 mg (2 x 500 mg) PO BID #180 12/19/22 08/18/24 Rx tabs levothyroxine 200 mcg tablet 200 mcg PO DAILY 07/21/23 08/18/24 History ceklmm-higpmmai-womhkpt 2 cap PO TIDWMEAL 07/22/23 08/18/24 History 36,000-114,000-180,000 unit capsule,delay rel (Creon) aspirin 81 mg tablet,delayed 81 mg PO QAM #30 tabs 07/25/23 08/18/24 Rx release pantoprazole 40 mg tablet,delayed 40 mg PO BID #30 tabs 08/22/23 08/18/24 Rx release (Protonix) citalopram 40 mg tablet 40 mg PO DAILY 08/31/23 08/18/24 History ticagrelor 90 mg tablet (Brilinta) 90 mg PO BID #180 tabs 10/03/23 08/18/24 Rx bupropion HCl 150 mg tablet,12 hr 150 mg PO HS 10/09/23 08/18/24 History sustained-release ondansetron 4 mg disintegrating 4 mg PO Q8H PRN nausea and 02/27/24 08/18/24 Rx tablet vomiting #10 tabs insulin aspart U-100 100 unit/mL See Rx Instructions .Route .COMPLEX 03/31/24 08/18/24 History subcutaneous solution (Novolog U-100 Insulin aspart) metoprolol succinate 25 mg 12.5 mg PO DAILY 03/31/24 08/18/24 History tablet,extended release 24 hr docusate sodium 100 mg capsule 100 mg PO Q12HR PRN constipation 04/08/24 08/18/24 Rx #20 caps fenofibrate 160 mg tablet 160 mg PO DAILY #90 tabs 04/27/24 08/18/24 Rx metoclopramide HCl 5 mg tablet 5 mg PO TIDWM nausea and vomiting 06/07/24 08/18/24 History trazodone 100 mg tablet 200 mg (2 x 100 mg) PO HS #180 tabs 06/17/24 08/18/24 Rx lorazepam 1 mg tablet 1 mg PO QHS PRN sleep #90 tabs 07/20/24 08/18/24 Rx atorvastatin 80 mg tablet 80 mg PO HS #90 tabs 08/13/24 08/18/24 Rx Allergies Allergy/AdvReac Type Severity Reaction Status Date / Time adhesive tape Allergy Mild Rash Verified 08/17/24 18:58 [place] pepper (green pepper) Allergy Unknown Hives Verified 08/17/24 18:58 sucralose (From Splenda Allergy Migraine Verified 08/17/24 18:58 (sucralose)) Artificial Sweetners AdvReac Migraine Uncoded 08/17/24 18:58 Vital Signs Vital Signs - 24 hr 08/19/24 20:45 08/19/24 20:58 08/20/24 05:00 Temperature 97.6 F 96.4 F L Pulse Rate 79 79 96 Respiratory Rate 14 14 12 Blood Pressure 138/71 130/70 Pulse Oximetry 97 97 98 Oxygen Delivery Room Air 08/20/24 08:00 08/20/24 08:26 08/20/24 14:00 Temperature 98.1 F Pulse Rate 80 73 Respiratory Rate 14 Blood Pressure 118/67 Pulse Oximetry 98 96 Oxygen Delivery Room Air Exam 2 Const: General: comfortable and no acute distress HENMT: Face/Nose/Sinus: Normal nares present Eyes: General: appearance normal, both eyes and all related structures Neck: Neck: no JVD Resp: Auscultation: clear to auscultation bilaterally Cardio: Rate: regular rate Rhythm: regular rhythm GI: Inspection: non-distended GI Palp: Yes Soft to palpation and No Tenderness to palpation present (GI) Auscultation: normal bowel sounds Skin: General skin exam: normal color Neuro: Speech: normal speech Motor exam (neuro): 5/5 motor strength present throughout Extrem: General: normal to inspection Psych: Mental Status: mental status grossly normal Results Labs 08/20/24 07:53 08/20/24 07:53 Labs: Short CBC 08/20/24 Range/Units 07:53 WBC 5.6 (4.5-10.0) K/mm3 Hgb 10.5 L (12.0-15.0) g/dL Hct 32.9 L (37.0-47.0) % Plt Count 208 (150-375) k/mm3 BMP 08/20/24 07:53 Sodium 140 Potassium 4.0 Chloride 105 Carbon Dioxide 30 BUN 4 L Creatinine 0.62 L Glucose 132 H Calcium 8.6 Liver Function 08/20/24 Range/Units 07:53 Total Bilirubin 0.3 (0.2-1.3) mg/dL AST 25 (14-36) U/L ALT 14 (6-35) U/L Alkaline Phosphatase 65 (38-126) U/L Albumin 4.2 (3.5-5.1) g/dL
[2024-08-20 17:22] LABS: Glucose Point of Care 166 mg/dl (65-105)
[2024-08-20 20:33] VITALS: BP 131/84; PULSE 102; RESP 18; TEMP 36.3; O2SAT 97
[2024-08-20 20:50] VITALS: PULSE 102; RESP 18; O2SAT 97
[2024-08-20] MEDS: traZODone HCL 50 MG TABLET 200 MG PO (20:50)
[2024-08-20] MEDS: LORazepam (*CRX) 1 MG TABLET PO (20:50)
[2024-08-20] MEDS: buPROPion HCL SR (12 HR) 150 MG TAB PO (20:50)
[2024-08-20] MEDS: ATORVASTATIN 40 MG TABLET 80 MG PO (20:50)
[2024-08-20 21:02] LABS: Glucose Point of Care 167 mg/dl (65-105)
[2024-08-21 04:00] VITALS: BP 140/63; PULSE 77; RESP 16; TEMP 35.9; O2SAT 97
[2024-08-21] MEDS: LEVOTHYROXINE SODIUM 100 MCG TABLET 200 MCG PO (05:37)
[2024-08-21] MEDS: HYDROcodone/acetaminophen (*CRX) 10-325 MG TABLET 1 TAB PO ×2 (05:38→11:10)
[2024-08-21] MEDS: SODIUM CHLORIDE 0.9% IV 1,000 ML 125 ML IV CONT ×3 (06:41→22:50)
[2024-08-21] MEDS: HYDROmorphone HCL INJ (*CRX) 2 MG/ML VIAL 1 MG IV PUSH ×4 (07:51→20:56)
--- NOTE | 2024-08-21 07:53 | P.PNIM_ITS ---
Progress Note: A&P Assessment and Plan (1) Abdominal pain: Qualifiers: Abdominal location: right upper quadrant Qualified Code(s): R10.11 - Right upper quadrant pain Code(s): R10.9 - Unspecified abdominal pain Status: Acute Assessment and Plan: * Chronic abdominal pain likely secondary to Hypertriglyceridemia and Chronic Pancreatitis * Lipase wnl, TG 364 * Continue IVFs and PRN pain control * Diet as tolerated * GI consulted, appreciate recommendations * Improving today (2) Chronic pancreatitis: Code(s): K86.1 - Other chronic pancreatitis Status: Acute Assessment and Plan: - chronic, recently approved for Tryngolza to tx high TG - IVF: 9% NS 125ml/hr - trend lipase, currently: 92 - AST, ALT, total bilirubin. trend LFTs. - pain control with Dilaudid, plan to taper - Zofran prn for nausea - CT abd/pelvis: Hepatomegaly with steatosis. No CT evidence of pancreatitis. Inferior malrotation of the left kidney, unchanged - GI consulted, awaiting recs - Clear liquid diet, advance patient's diet as tolerated. 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 Qualified Code(s): E03.8 - Other specified hypothyroidism; E06.3 - Autoimmune thyroiditis Code(s): E03.9 - Hypothyroidism, unspecified Status: Acute Assessment and Plan: Continue levothyroxine L (5) Type 2 diabetes mellitus: Qualifiers: Diabetes mellitus complication status: without complication Diabetes mellitus terminal 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 insulin use: with fci use Qualified Code(s): E11.9 - Type 2 diabetes mellitus without complications; Z79.4 - correction (current) use of insulin Code(s): E11.9 - Type 2 diabetes mellitus without complications Status: Chronic Assessment and Plan: - hypoglycemia protocol - POC blood glucose ACHS - home medication - Metformin - correct regimen ordered - low dose TIDWM and HS - A1C pending (6) CAD (coronary artery disease): Code(s): I25.10 - Atherosclerotic heart disease of [place] coronary artery without angina pectoris Status: Acute Assessment and Plan: Continue Brilinta, metoprolol and aspirin Time Spent With Patient Time: Subjective Date/time seen: 08/21/24 07:53 Interval history: 48-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 08/21/2024 Patient sitting comfortably in bed at time of exam. Endorses mild improvement of abdominal pain. Reports pain is 6/10 today whereas yesterday it was 8.5/10. Denies any CP, SOB, n/v at this time. Does state that the idea of eating/attempting to eat does still make her slightly nauseous, but is optimistic that we can attempt advancing diet within the next 24 hours. Otherwise she has no complaints at this time. Remains afebrile with stable blood work. Will continue IVF and PRN pain control with the hopes that we can taper soon. Review of Systems Review of Systems: 12 systems were reviewed and are negativ e except for as per HPI. Exam Narrative: General: well appearing, appears stated age. HEENT: normocephalic, atraumatic. Mucous membranes moist. EOMI, PERRLA, bilateral sclera anicteric, no conjunctival injection. Neck supple without JVD, lymphadenopathy, or bruit. Respiratory: clear to ascultation bilaterally. No rales/rhonic/wheezes. Bilateral ports without erythema Cardiovascular: Regular rate and rhythm, normal S1-S2 upon ascultation. No murmurs, rubs, or clicks. PMI is nondisplaced, capillary refill less than 3 second. Abdomen: LUQ tenderness to palpation. Soft, round, no pulsatile masses, nondistended No rebound, no guarding. No CVA tenderness, no hepatosplenomegaly. Bowel sounds present to all four quadrants. No high pitch or tinkling sounds, resonant to percussion. Extremities: No cyanosis, clubbing, or edema present. Pulses are palpable 2/2. Active ROM to all four extremities. Neuro: Alert and orientated x 4. PERRLA. Cranial nerves 2-12 intact without focal deficit. Skin: Warm, dry, and intact, without rash, erythema, or lesion. Psych: pleasant, cooperative, normal speech, normal affect, no hallucinations, no dysarthia Objective Data Vital Signs Vital Signs: Vital Signs - 24 hr 08/20/24 08:00 08/20/24 08:26 08/20/24 14:00 Temperature 98.1 F Pulse Rate 80 73 Respiratory Rate 14 Blood Pressure 118/67 Pulse Oximetry 98 96 Oxygen Delivery Room Air 08/20/24 20:33 08/20/24 20:50 08/21/24 04:00 Temperature 97.3 F L 96.7 F L Pulse Rate 102 H 102 H 77 Respiratory Rate 18 18 16 Blood Pressure 131/84 140/63 Pulse Oximetry 97 97 97 Oxygen Delivery Room Air Intake/Output Intake/Output: Intake & Output 08/18/24 08/19/24 08/20/24 08/21/24 23:59 23:59 23:59 23:59 Intake Total 3000 4357.5 3598 1000 Balance 3000 4357.5 3598 1000 Meds/Results Medications: Active Medications Generic Name Dose Route Start Last Admin Trade Name Freq PRN Reason Stop Dose Admin Acetaminophen 650 mg 08/18/24 01:23 Acetaminophen 325 Mg Tablet PO Q4H PRN Mild Pain (1-3) or Fever Hydrocodone Bitart/Acetaminophen 1 tab 08/18/24 03:03 08/21/24 05:38 Hydrocodone/Acetaminophen (*Crx) 10-325 Mg Tablet PO 1 tab Q6H PRN Administration Pain Rated 7-10 Lipase/Protease/Amylase 6 cap 08/18/24 08:00 08/20/24 17:18 Lipase/Amylase/Protease 12,000 Units Cap PO Not Given TIDWM RAPHAEL Aspirin 81 mg 08/18/24 09:00 08/20/24 08:26 Aspirin 81 Mg Enteric Tablet PO 81 mg QAM RAPHAEL Administration Atorvastatin Calcium 80 mg 08/18/24 21:00 08/20/24 20:50 Atorvastatin 40 Mg Tablet PO 80 mg HS RAPHAEL Administration Bupropion HCl 150 mg 08/18/24 21:00 08/20/24 20:50 Bupropion Hcl Sr (12 Hr) 150 Mg Tab PO 150 mg HS RAPHAEL Administration Citalopram Hydrobromide 40 mg 08/18/24 09:00 08/20/24 08:26 Citalopram Hydrobromide 20 Mg Tablet PO 40 mg DAILY RAPHAEL Administration Dextrose 12.5 gm 08/18/24 02:57 Dextrose 50% 25 Gm/50 Ml Syringe IV PUSH PRN PRN Hypoglycemia Protocol Diphenhydramine HCl 25 mg 08/18/24 13:32 08/20/24 18:41 Diphenhydramine Hcl Inj 50 Mg/Ml Vial IV PUSH 25 mg Q4H PRN Administration Itching Docusate Sodium 100 mg 08/20/24 14:40 08/20/24 20:50 Docusate Sodium 100 Mg Capsule PO 100 mg Q12HR RAPHAEL Administration Glucose 15 gm 08/18/24 02:57 Glucose Oral Gel 15 Gm Of Glucse In 37.5 Gm Tube PO PRN PRN Hypoglycemia Protocol Hydromorphone HCl 1 mg 08/18/24 01:23 08/21/24 07:51 Hydromorphone Hcl Inj (*Crx) 2 Mg/Ml Vial IV PUSH 1 mg Q4H PRN Administration Pain Rated 7-10 Sodium Chloride 1,000 mls @ 125 mls/hr 08/18/24 01:25 08/21/24 06:41 Normal Saline Iv IV CONT 125 mls/hr .Q8H RAPHAEL Administration Dextrose 1,000 mls @ 100 mls/hr 08/18/24 02:57 Dextrose 5% 1,000 Ml IVPB PRN PRN Hypoglycemia Protocol Insulin Aspart 2 - 5 units 08/18/24 08:00 08/20/24 17:17 Insulin Aspart (*Bkc) 100 Units/Ml SUB-Q Not Given TIDWM RAPHAEL Protocol Insulin Aspart 1 - 2 units 08/18/24 21:00 08/20/24 22:09 Insulin Aspart (*Bkc) 100 Units/Ml SUB-Q Not Given HS RAPHAEL Protocol Levothyroxine Sodium 200 mcg 08/18/24 06:30 08/21/24 05:37 Levothyroxine Sodium 100 Mcg Tablet PO 200 mcg DAILY@0630 RAHPAEL Administration Lorazepam 1 mg 08/18/24 02:54 08/20/24 20:50 Lorazepam (*Crx) 1 Mg Tablet PO 1 mg QHS PRN Administration sleep Metoprolol Succinate 12.5 mg 08/18/24 09:00 08/20/24 08:26 Metoprolol Succinate Ext Rel 12.5 Mg Tabcr PO 12.5 mg DAILY RAPHAEL Administration Miscellaneous Information 0 each 08/18/24 00:01 08/19/24 05:34 Tryngolza Send To Pharmacy For Verification Once Brought In XX 09/17/24 00:00 Not Given CLARIFY RAPHAEL Non-Formulary Medication 1 unit 08/18/24 15:15 Tryngolza SUBDERMAL 09/17/24 15:14 ONCE RAPHAEL Ondansetron HCl 4 mg 08/18/24 01:23 08/20/24 08:31 Ondansetron Inj 4 Mg/2 Ml Vial IV PUSH 4 mg Q4H PRN Administration Nausea Pantoprazole Sodium 40 mg 08/18/24 09:00 08/20/24 08:26 Pantoprazole Sodium Iv 40 Mg Vial IV PUSH 40 mg QAM RAPHAEL Administration Ticagrelor 90 mg 08/18/24 09:00 08/20/24 20:50 Ticagrelor 90 Mg Tablet PO 90 mg Q12HR RAPHAEL Administration Trazodone HCl 200 mg 08/18/24 03:20 08/20/24 20:50 Trazodone Hcl 50 Mg Tablet PO 200 mg HS RAPHAEL Administration Radiology Results: ITS Impressions Abdomen/Pelvis CT 08/17/24 22:32 IMPRESSION: Hepatomegaly with steatosis. No CT evidence of pancreatitis. Inferior malrotation of the left kidney, with chronic mild pelviectasis and caliectasis, likely reflecting some degree of chronic UPJ obstruction, unchanged. Labs Labs: Laboratory Results - last 24 hr 08/20/24 08/20/24 08/20/24 07:50 07:53 07:53 WBC 5.6 RBC 3.53 L Hgb 10.5 L Hct 32.9 L MCV 93.2 MCH 29.7 MCHC 31.9 L RDW 14.8 H Plt Count 208 MPV 8.7 Immature Gran % (Auto) 0.5 Neut % (Auto) 60.8 Lymph % (Auto) 31.1 [place] % (Auto) 5.4 Eos % (Auto) 1.8 Baso % (Auto) 0.4 Lymph # (Auto) 1.73 [place] # (Auto) 0.3 Eos # (Auto) 0.1 Baso # (Auto) 0.0 Abs Immat Gran (auto) 0.03 Absolute Neuts (auto) 3.4 Absolute Nucleated RBC 0.000 Nucleated RBC % 0.0 Sodium 140 Potassium 4.0 Chloride 105 Carbon Dioxide 30 Anion Gap 5 BUN 4 L Creatinine 0.62 L Estim Creat Clear Calc 104 Estimated GFR > 60 Glucose 132 H POC Capillary Glucose Calcium 8.6 Magnesium 1.6 Total Bilirubin 0.3 AST 25 ALT 14 Alkaline Phosphatase 65 Total Protein 7.0 Albumin 4.2 TSH (Reflex) 44.600 H Free T4 0.59 L 0.60 L 08/20/24 08/20/24 08/20/24 11:31 17:15 19:57 WBC RBC Hgb Hct MCV MCH MCHC RDW Plt Count MPV Immature Gran % (Auto) Neut % (Auto) Lymph % (Auto) [place] % (Auto) Eos % (Auto) Baso % (Auto) Lymph # (Auto) [place] # (Auto) Eos # (Auto) Baso # (Auto) Abs Immat Gran (auto) Absolute Neuts (auto) Absolute Nucleated RBC Nucleated RBC % Sodium Potassium Chloride Carbon Dioxide Anion Gap BUN Creatinine Estim Creat Clear Calc Estimated GFR Glucose POC Capillary Glucose 108 H 166 H 167 H Calcium Magnesium Total Bilirubin AST ALT Alkaline Phosphatase Total Protein Albumin TSH (Reflex) Free T4 Quality VTE Prophylaxis VTE prophylaxis: mechanical ordered and pharmacologic ordered
[2024-08-21 08:04] LABS: Glucose Point of Care 115 mg/dl (65-105)
[2024-08-21] MEDS: ONDANSETRON INJ 4 MG/2 ML VIAL IV PUSH ×4 (08:04→20:57)
[2024-08-21] MEDS: diphenhydrAMINE HCl INJ 50 MG/ML VIAL 25 MG IV PUSH ×4 (08:05→20:57)
[2024-08-21 08:39] LABS: Alanine Aminotransferase 15 U/L (6-35); Albumin Level 4.1 g/dL (3.5-5.1); Alkaline Phosphatase 70 U/L (38-126); Anion Gap 8 mmol/L (4-12); Aspartate Amino Transferase 23 U/L (14-36); Bilirubin,Total 0.4 mg/dL (0.2-1.3); Blood Urea Nitrogen 3 mg/dL (7-17); Calcium 8.6 mg/dL (8.4-10.2); Carbon Dioxide 27 mmol/L (22-30); Chloride 105 mmol/L (98-107); Estimated CRCL calculation 100 ml/min; Estimated Glomerular Filt Rate > 60; Glucose 133 mg/dL (65-110); Potassium 3.6 mmol/L (3.4-5.0); Sodium 140 mmol/L (137-145)
[2024-08-21 08:57] LABS: Basophils Percent Auto 0.4 % (0.2-1.2); Eosinophils Absolute Auto 0.1 K/mm3 (0-0.3); Eosinophils Percent Auto 1.6 % (0-4.4); Hematocrit 32.8 % (37.0-47.0); Hemoglobin 10.3 g/dL (12.0-15.0); Immature Granulocyte Absolute 0.03 K/mm3 (0.00-0.031); Immature Granulocyte Percent A 0.5 % (0-0.5); Lymphocytes Absolute Auto 1.67 K/mm3 (0.9-3.2); Lymphocytes Percent Auto 30.4 % (18.3-44.2); Mean Corpuscular HGB Conc 31.4 g/dl (32-36); Mean Corpuscular Hemoglobin 29.6 pg (26-34); Mean Corpuscular Volume 94.3 fl (80-100); Mean Platelet Volume 9.3 fl (7.4-10.4); Monocytes Absolute Auto 0.4 K/mm3 (0.1-0.6); Monocytes Percent Auto 7.3 % (2.6-8.5); Neutrophils Absolute Auto 3.3 K/mm3 (1.3-6.7); Neutrophils Percent Auto 59.8 % (45.5-73.1); Platelet Count Result 221 k/mm3 (150-375); Red Blood Count 3.48 M/mm3 (4.2-5.4); Red Cell Distribution Width 14.8 % (11.5-14.5); White Blood Count 5.5 K/mm3 (4.5-10.0)
[2024-08-21 08:59] LABS: Hemoglobin A1C 8.5 % (<5.7)
[2024-08-21 09:52] VITALS: PULSE 77
[2024-08-21] MEDS: METOPROLOL SUCCINATE EXT REL 12.5 MG TABCR PO (09:52)
[2024-08-21] MEDS: TICAGRELOR 90 MG TABLET PO ×2 (09:52→20:19)
[2024-08-21] MEDS: PANTOPRAZOLE SODIUM IV 40 MG VIAL IV PUSH (09:52)
[2024-08-21] MEDS: CITALOPRAM HYDROBROMIDE 20 MG TABLET 40 MG PO (09:52)
[2024-08-21] MEDS: DOCUSATE SODIUM 100 MG CAPSULE PO ×2 (09:52→20:19)
[2024-08-21] MEDS: ASPIRIN 81 MG ENTERIC TABLET PO (09:52)
[2024-08-21 11:21] LABS: Glucose Point of Care 147 mg/dl (65-105)
[2024-08-21 12:00] VITALS: BP 140/70; PULSE 80; RESP 20; TEMP 36.6; O2SAT 98
[2024-08-21 16:30] VITALS: BP 130/67; PULSE 78; RESP 18; TEMP 36.3; O2SAT 100
--- NOTE | 2024-08-21 16:33 | WPDGIPROGNO ---
Progress Note: A&P Assessment and Plan (1) Epigastric abdominal pain: Code(s): R10.13 - Epigastric pain Status: Acute Assessment and Plan: liquid diet, advance as tolerated hopefully soon medical support (2) Chronic pancreatitis: Onset Date: ~09/02/23 Qualifiers: Pancreatitis type: other Qualified Code(s): K86.1 - Other chronic pancreatitis Code(s): K86.1 - Other chronic pancreatitis Status: Chronic Assessment and Plan: lipase and CT scan without major findings but she had previous pancreatitis probably from DM and high TG level (3) GERD (gastroesophageal reflux disease): Qualifiers: Esophagitis presence: esophagitis presence not specified Qualified Code(s): K21.9 - Gastro-esophageal reflux disease without esophagitis Code(s): K21.9 - Gastro-esophageal reflux disease without esophagitis Status: Acute (4) Hypertriglyceridemia: Code(s): E78.1 - Pure hyperglyceridemia Status: Inactive Assessment and Plan: she has been approved to start specific treatment- tryngolza patient has required previously plasmapheresis, in fact she has a port-a-cath (5) Gastroparesis: Code(s): K31.84 - Gastroparesis Status: Acute Assessment and Plan: antiemetics probably is also causing part of her symptoms Subjective Date/time seen: 08/21/24 16:33 Interval history: with pain but has improved, still on liquid diet, he is not ready to advance yet Review of Systems Review of Systems: All systems reviewed & are unremarkable except as noted in HPI and below Exam Const: General: comfortable and no acute distress HENMT: Face/Nose/Sinus: Normal nares present Eyes: General: appearance normal, both eyes and all related structures Neck: Neck: no JVD Resp: Auscultation: clear to auscultation bilaterally Cardio: Rate: regular rate Rhythm: regular rhythm GI: Inspection: non-distended GI Palp: Yes Soft to palpation and No Tenderness to palpation present (GI) Auscultation: normal bowel sounds Skin: General skin exam: normal color Neuro: Speech: normal speech Motor exam (neuro): 5/5 motor strength present throughout Extrem: General: normal to inspection Psych: Mental Status: mental status grossly normal Objective Data Vital Signs Vital Signs: Vital Signs - 24 hr 08/20/24 20:33 08/20/24 20:50 08/21/24 04:00 Temperature 97.3 F L 96.7 F L Pulse Rate 102 H 102 H 77 Respiratory Rate 18 18 16 Blood Pressure 131/84 140/63 Pulse Oximetry 97 97 97 Oxygen Delivery Room Air 08/21/24 09:52 Temperature Pulse Rate 77 Respiratory Rate Blood Pressure Pulse Oximetry Oxygen Delivery Intake/Output Intake/Output: Intake & Output 08/18/24 08/19/24 08/20/24 08/21/24 23:59 23:59 23:59 23:59 Intake Total 3000 4357.5 3598 2480 Balance 3000 4357.5 3598 2480 Meds/Results Medications: Active Medications Generic Name Dose Route Start Last Admin Trade Name Freq PRN Reason Stop Dose Admin Acetaminophen 650 mg 08/18/24 01:23 Acetaminophen 325 Mg Tablet PO Q4H PRN Mild Pain (1-3) or Fever Hydrocodone Bitart/Acetaminophen 1 tab 08/18/24 03:03 08/21/24 11:10 Hydrocodone/Acetaminophen (*Crx) 10-325 Mg Tablet PO 1 tab Q6H PRN Administration Pain Rated 7-10 Lipase/Protease/Amylase 6 cap 08/18/24 08:00 08/21/24 12:23 Lipase/Amylase/Protease 12,000 Units Cap PO Not Given TIDWM RAPHAEL Aspirin 81 mg 08/18/24 09:00 08/21/24 09:52 Aspirin 81 Mg Enteric Tablet PO 81 mg QAM RAPHAEL Administration Atorvastatin Calcium 80 mg 08/18/24 21:00 08/20/24 20:50 Atorvastatin 40 Mg Tablet PO 80 mg HS RAPHAEL Administration Bupropion HCl 150 mg 08/18/24 21:00 08/20/24 20:50 Bupropion Hcl Sr (12 Hr) 150 Mg Tab PO 150 mg HS RAPHAEL Administration Citalopram Hydrobromide 40 mg 08/18/24 09:00 08/21/24 09:52 Citalopram Hydrobromide 20 Mg Tablet PO 40 mg DAILY RAPHAEL Administration Dextrose 12.5 gm 08/18/24 02:57 Dextrose 50% 25 Gm/50 Ml Syringe IV PUSH PRN PRN Hypoglycemia Protocol Diphenhydramine HCl 25 mg 08/18/24 13:32 08/21/24 12:17 Diphenhydramine Hcl Inj 50 Mg/Ml Vial IV PUSH 25 mg Q4H PRN Administration Itching Docusate Sodium 100 mg 08/20/24 14:40 08/21/24 09:52 Docusate Sodium 100 Mg Capsule PO 100 mg Q12HR RAPHAEL Administration Glucose 15 gm 08/18/24 02:57 Glucose Oral Gel 15 Gm Of Glucse In 37.5 Gm Tube PO PRN PRN Hypoglycemia Protocol Hydromorphone HCl 1 mg 08/18/24 01:23 08/21/24 12:17 Hydromorphone Hcl Inj (*Crx) 2 Mg/Ml Vial IV PUSH 1 mg Q4H PRN Administration Pain Rated 7-10 Sodium Chloride 1,000 mls @ 125 mls/hr 08/18/24 01:25 08/21/24 14:50 Normal Saline Iv IV CONT 125 mls/hr .Q8H RAPHAEL Administration Dextrose 1,000 mls @ 100 mls/hr 08/18/24 02:57 Dextrose 5% 1,000 Ml IVPB PRN PRN Hypoglycemia Protocol Insulin Aspart 2 - 5 units 08/18/24 08:00 08/21/24 12:20 Insulin Aspart (*Bkc) 100 Units/Ml SUB-Q Not Given TIDWM [facility] Protocol Insulin Aspart 1 - 2 units 08/18/24 21:00 08/20/24 22:09 Insulin Aspart (*Bkc) 100 Units/Ml SUB-Q Not Given HS RAPHAEL Protocol Levothyroxine Sodium 200 mcg 08/18/24 06:30 08/21/24 05:37 Levothyroxine Sodium 100 Mcg Tablet PO 200 mcg DAILY@0630 RAPHAEL Administration Lorazepam 1 mg 08/18/24 02:54 08/20/24 20:50 Lorazepam (*Crx) 1 Mg Tablet PO 1 mg QHS PRN Administration sleep Metoprolol Succinate 12.5 mg 08/18/24 09:00 08/21/24 09:52 Metoprolol Succinate Ext Rel 12.5 Mg Tabcr PO 12.5 mg DAILY RAPHAEL Administration Miscellaneous Information 0 each 08/18/24 00:01 08/19/24 05:34 Tryngolza Send To Pharmacy For Verification Once Brought In XX 09/17/24 00:00 Not Given CLARIFY RAPHAEL Non-Formulary Medication 1 unit 08/18/24 15:15 Tryngolza SUBDERMAL 09/17/24 15:14 ONCE RAPHAEL Ondansetron HCl 4 mg 08/18/24 01:23 08/21/24 12:16 Ondansetron Inj 4 Mg/2 Ml Vial IV PUSH 4 mg Q4H PRN Administration Nausea Pantoprazole Sodium 40 mg 08/18/24 09:00 08/21/24 09:52 Pantoprazole Sodium Iv 40 Mg Vial IV PUSH 40 mg QAM RAPHAEL Administration Ticagrelor 90 mg 08/18/24 09:00 08/21/24 09:52 Ticagrelor 90 Mg Tablet PO 90 mg Q12HR RAPHAEL Administration Trazodone HCl 200 mg 08/18/24 03:20 08/20/24 20:50 Trazodone Hcl 50 Mg Tablet PO 200 mg HS RAPHAEL Administration Radiology Results: ITS Impressions Abdomen/Pelvis CT 08/17/24 22:32 IMPRESSION: Hepatomegaly with steatosis. No CT evidence of pancreatitis. Inferior malrotation of the left kidney, with chronic mild pelviectasis and caliectasis, likely reflecting some degree of chronic UPJ obstruction, unchanged. Labs Labs: Laboratory Results - last 24 hr 08/20/24 08/20/24 08/21/24 17:15 19:57 07:47 WBC RBC Hgb Hct MCV MCH MCHC RDW Plt Count MPV Immature Gran % (Auto) Neut % (Auto) Lymph % (Auto) [place] % (Auto) Eos % (Auto) Baso % (Auto) Lymph # (Auto) [place] # (Auto) Eos # (Auto) Baso # (Auto) Abs Immat Gran (auto) Absolute Neuts (auto) Absolute Nucleated RBC Nucleated RBC % Sodium Potassium Chloride Carbon Dioxide Anion Gap BUN Creatinine Estim Creat Clear Calc Estimated GFR Glucose POC Capillary Glucose 166 H 167 H 115 H Hemoglobin A1c Calcium Total Bilirubin AST ALT Alkaline Phosphatase Total Protein Albumin 08/21/24 08/21/24 08:08 11:15 WBC 5.5 RBC 3.48 L Hgb 10.3 L Hct 32.8 L MCV 94.3 MCH 29.6 MCHC 31.4 L RDW 14.8 H Plt Count 221 MPV 9.3 Immature Gran % (Auto) 0.5 Neut % (Auto) 59.8 Lymph % (Auto) 30.4 [place] % (Auto) 7.3 Eos % (Auto) 1.6 Baso % (Auto) 0.4 Lymph # (Auto) 1.67 [place] # (Auto) 0.4 Eos # (Auto) 0.1 Baso # (Auto) 0.0 Abs Immat Gran (auto) 0.03 Absolute Neuts (auto) 3.3 Absolute Nucleated RBC 0.000 Nucleated RBC % 0.0 Sodium 140 Potassium 3.6 Chloride 105 Carbon Dioxide 27 Anion Gap 8 BUN 3 L Creatinine 0.65 L Estim Creat Clear Calc 100 Estimated GFR > 60 Glucose 133 H POC Capillary Glucose 147 H Hemoglobin A1c 8.5 H Calcium 8.6 Total Bilirubin 0.4 AST 23 ALT 15 Alkaline Phosphatase 70 Total Protein 7.0 Albumin 4.1
[2024-08-21 16:59] LABS: Glucose Point of Care 129 mg/dl (65-105)
[2024-08-21] MEDS: LORazepam (*CRX) 1 MG TABLET PO (20:19)
[2024-08-21] MEDS: traZODone HCL 50 MG TABLET 200 MG PO (20:19)
[2024-08-21] MEDS: buPROPion HCL SR (12 HR) 150 MG TAB PO (20:19)
[2024-08-21] MEDS: ATORVASTATIN 40 MG TABLET 80 MG PO (20:19)
[2024-08-21 20:20] VITALS: PULSE 71; RESP 14; O2SAT 98
[2024-08-21 20:46] VITALS: BP 126/64; PULSE 71; RESP 14; TEMP 36.7; O2SAT 98
[2024-08-21 20:55] LABS: Glucose Point of Care 154 mg/dl (65-105)
[2024-08-22] MEDS: diphenhydrAMINE HCl INJ 50 MG/ML VIAL 25 MG IV PUSH ×6 (00:33→21:22)
[2024-08-22] MEDS: ONDANSETRON INJ 4 MG/2 ML VIAL IV PUSH ×6 (00:33→21:22)
[2024-08-22] MEDS: HYDROmorphone HCL INJ (*CRX) 2 MG/ML VIAL 1 MG IV PUSH ×6 (00:33→21:22)
[2024-08-22 04:50] VITALS: BP 99/51; PULSE 79; RESP 14; TEMP 36.4; O2SAT 97
[2024-08-22 05:45] LABS: Basophils Percent Auto 0.6 % (0.2-1.2); Eosinophils Absolute Auto 0.1 K/mm3 (0-0.3); Eosinophils Percent Auto 1.8 % (0-4.4); Hematocrit 31.9 % (37.0-47.0); Hemoglobin 10.1 g/dL (12.0-15.0); Immature Granulocyte Absolute 0.03 K/mm3 (0.00-0.031); Immature Granulocyte Percent A 0.6 % (0-0.5); Lymphocytes Absolute Auto 1.72 K/mm3 (0.9-3.2); Lymphocytes Percent Auto 34.2 % (18.3-44.2); Mean Corpuscular HGB Conc 31.7 g/dl (32-36); Mean Corpuscular Hemoglobin 29.4 pg (26-34); Mean Platelet Volume 9.2 fl (7.4-10.4); Monocytes Absolute Auto 0.3 K/mm3 (0.1-0.6); Neutrophils Absolute Auto 2.9 K/mm3 (1.3-6.7); Neutrophils Percent Auto 56.8 % (45.5-73.1); Platelet Count Result 212 k/mm3 (150-375); Red Blood Count 3.43 M/mm3 (4.2-5.4); Red Cell Distribution Width 14.7 % (11.5-14.5)
[2024-08-22 05:55] LABS: Alanine Aminotransferase 16 U/L (6-35); Alkaline Phosphatase 70 U/L (38-126); Anion Gap 9 mmol/L (4-12); Aspartate Amino Transferase 24 U/L (14-36); Bilirubin,Total 0.4 mg/dL (0.2-1.3); Blood Urea Nitrogen 2 mg/dL (7-17); Calcium 8.5 mg/dL (8.4-10.2); Carbon Dioxide 24 mmol/L (22-30); Chloride 107 mmol/L (98-107); Estimated CRCL calculation 114 ml/min; Estimated Glomerular Filt Rate > 60; Glucose 131 mg/dL (65-110); Potassium 3.3 mmol/L (3.4-5.0); Sodium 140 mmol/L (137-145)
[2024-08-22] MEDS: LEVOTHYROXINE SODIUM 100 MCG TABLET 200 MCG PO (06:14)
--- NOTE | 2024-08-22 07:30 | P.PNIM_ITS ---
Progress Note: A&P Assessment and Plan (1) Chronic pancreatitis: Code(s): K86.1 - Other chronic pancreatitis Status: Acute Assessment and Plan: - chronic, recently approved for Tryngolza to tx high TG - IVF: 9% NS 125ml/hr - trend lipase, currently: 92 - AST, ALT, total bilirubin. trend LFTs. - pain control with Dilaudid increased to q3hr - Zofran prn for nausea - CT abd/pelvis: Hepatomegaly with steatosis. No CT evidence of pancreatitis. Inferior malrotation of the left kidney, unchanged - GI consulted, awaiting recs - Clear liquid diet, advance patient's diet as tolerated. (2) Hypertriglyceridemia: Code(s): E78.1 - Pure hyperglyceridemia Status: Chronic Assessment and Plan: - chronic, recently approved for Tryngolza to tx high TG - T - No intervention needed at this time - Repeat TG 08/22 522 (3) Abdominal pain: Qualifiers: Abdominal location: right upper quadrant Qualified Code(s): R10.11 - Right upper quadrant pain Code(s): R10.9 - Unspecified abdominal pain Status: Acute Assessment and Plan: * Chronic abdominal pain likely secondary to Hypertriglyceridemia and Chronic Pancreatitis * Lipase wnl, TG 364 * Continue IVFs and PRN pain control * Diet as tolerated * GI consulted, appreciate recommendations * Improving today (4) Hypothyroidism: Qualifiers: 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 Qualified Code(s): E03.8 - Other specified hypothyroidism; E06.3 - Autoimmune thyroiditis Code(s): E03.9 - Hypothyroidism, unspecified Status: Acute Assessment and Plan: Continue levothyroxine (5) Type 2 diabetes mellitus: Qualifiers: Diabetes mellitus complication status: without complication Diabetes mellitus termite control representative insulin use: with termite control representative use Qualified Code(s): E11.9 - Type 2 diabetes mellitus without complications; Z79.4 - detention (current) use of insulin Code(s): E11.9 - Type 2 diabetes mellitus without complications Status: Chronic Assessment and Plan: - hypoglycemia protocol - POC blood glucose ACHS - home medication - Metformin - correct regimen ordered - low dose TIDWM and HS - A1C pending (6) CAD (coronary artery disease): Code(s): I25.10 - Atherosclerotic heart disease of [place] coronary artery without angina pectoris Status: Acute Assessment and Plan: Continue Brilinta, metoprolol and aspirin Time Spent With Patient Time: Subjective Date/time seen: 08/22/24 07:30 Interval history: 48-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 08/22/2024 Patient sitting comfortably in bed at time of examination. Denies any chest pain, shortness a breath, or episodes of emesis. Still endorses slight nausea and left upper quadrant abdominal pain intermittently. Reports the pain has remained unchanged since yesterday. Repeat triglycerides is 522, still does not meet threshold for plasmapheresis. Will increase IV Dilaudid from q.4 hours to q.3 hours. Continue diet as tolerated. Review of Systems Review of Systems: 12 systems were reviewed and are negativ e except for as per HPI. Exam Narrative: General: well appearing, appears stated age. HEENT: normocephalic, atraumatic. Mucous membranes moist. EOMI, PERRLA Respiratory: clear to ascultation bilaterally. No rales/rhonic/wheezes. Bilateral ports without erythema Cardiovascular: Regular rate and rhythm, normal S1-S2 upon ascultation. No murmurs, rubs, or clicks. Abdomen: LUQ tenderness to palpation. Soft, round, no pulsatile masses, nondistended No rebound, no guarding. No CVA tenderness, no hepatosplenomegaly. Bowel sounds present to all four quadrants. No high pitch or tinkling sounds, resonant to percussion. Extremities: No cyanosis, clubbing, or edema present. Pulses are palpable 2/2. Active ROM to all four extremities. Neuro: Alert and orientated x 4. PERRLA. Skin: Warm, dry, and intact, without rash, erythema, or lesion. Psych: pleasant, cooperative, normal speech, normal affect, Objective Data Vital Signs Vital Signs: Vital Signs - 24 hr 08/21/24 09:52 08/21/24 12:00 08/21/24 16:30 Temperature 97.8 F 97.3 F L Pulse Rate 77 80 78 Respiratory Rate 20 18 Blood Pressure 140/70 130/67 Pulse Oximetry 98 100 Oxygen Delivery 08/21/24 20:20 08/21/24 20:46 08/22/24 04:50 Temperature 98.1 F 97.6 F Pulse Rate 71 71 79 Respiratory Rate 14 14 14 Blood Pressure 126/64 99/51 L Pulse Oximetry 98 98 97 Oxygen Delivery Room Air Intake/Output Intake/Output: Intake & Output 08/19/24 08/20/24 08/21/24 08/22/24 23:59 23:59 23:59 23:59 Intake Total 4357.5 3598 4330 360 Balance 4357.5 3598 4330 360 Meds/Results Medications: Active Medications Generic Name Dose Route Start Last Admin Trade Name Freq PRN Reason Stop Dose Admin Acetaminophen 650 mg 08/18/24 01:23 Acetaminophen 325 Mg Tablet PO Q4H PRN Mild Pain (1-3) or Fever Hydrocodone Bitart/Acetaminophen 1 tab 08/18/24 03:03 08/21/24 11:10 Hydrocodone/Acetaminophen (*Crx) 10-325 Mg Tablet PO 1 tab Q6H PRN Administration Pain Rated 7-10 Lipase/Protease/Amylase 6 cap 08/18/24 08:00 08/21/24 18:48 Lipase/Amylase/Protease 12,000 Units Cap PO Not Given TIDWM RAPHAEL Aspirin 81 mg 08/18/24 09:00 08/21/24 09:52 Aspirin 81 Mg Enteric Tablet PO 81 mg QAM RAPHAEL Administration Atorvastatin Calcium 80 mg 08/18/24 21:00 08/21/24 20:19 Atorvastatin 40 Mg Tablet PO 80 mg HS RAPHAEL Administration Bupropion HCl 150 mg 08/18/24 21:00 08/21/24 20:19 Bupropion Hcl Sr (12 Hr) 150 Mg Tab PO 150 mg HS RAPHAEL Administration Citalopram Hydrobromide 40 mg 08/18/24 09:00 08/21/24 09:52 Citalopram Hydrobromide 20 Mg Tablet PO 40 mg DAILY RAPHAEL Administration Dextrose 12.5 gm 08/18/24 02:57 Dextrose 50% 25 Gm/50 Ml Syringe IV PUSH PRN PRN Hypoglycemia Protocol Diphenhydramine HCl 25 mg 08/18/24 13:32 08/22/24 05:00 Diphenhydramine Hcl Inj 50 Mg/Ml Vial IV PUSH 25 mg Q4H PRN Administration Itching Docusate Sodium 100 mg 08/20/24 14:40 08/21/24 20:19 Docusate Sodium 100 Mg Capsule PO 100 mg Q12HR RAPHAEL Administration Glucose 15 gm 08/18/24 02:57 Glucose Oral Gel 15 Gm Of Glucse In 37.5 Gm Tube PO PRN PRN Hypoglycemia Protocol Hydromorphone HCl 1 mg 08/18/24 01:23 08/22/24 05:00 Hydromorphone Hcl Inj (*Crx) 2 Mg/Ml Vial IV PUSH 1 mg Q4H PRN Administration Pain Rated 7-10 Sodium Chloride 1,000 mls @ 125 mls/hr 08/18/24 01:25 08/21/24 22:50 Normal Saline Iv IV CONT 125 mls/hr .Q8H RAPHAEL Administration Dextrose 1,000 mls @ 100 mls/hr 08/18/24 02:57 Dextrose 5% 1,000 Ml IVPB PRN PRN Hypoglycemia Protocol Insulin Aspart 2 - 5 units 08/18/24 08:00 08/21/24 17:15 Insulin Aspart (*Bkc) 100 Units/Ml SUB-Q Not Given TIDWM RAPHAEL Protocol Insulin Aspart 1 - 2 units 08/18/24 21:00 08/21/24 22:38 Insulin Aspart (*Bkc) 100 Units/Ml SUB-Q Not Given HS RAPHAEL Protocol Levothyroxine Sodium 200 mcg 08/18/24 06:30 08/22/24 06:14 Levothyroxine Sodium 100 Mcg Tablet PO 200 mcg DAILY@0630 RAPHAEL Administration Lorazepam 1 mg 08/18/24 02:54 08/21/24 20:19 Lorazepam (*Crx) 1 Mg Tablet PO 1 mg QHS PRN Administration sleep Metoprolol Succinate 12.5 mg 08/18/24 09:00 08/21/24 09:52 Metoprolol Succinate Ext Rel 12.5 Mg Tabcr PO 12.5 mg DAILY RAPHAEL Administration Miscellaneous Information 0 each 08/18/24 00:01 08/19/24 05:34 Tryngolza Send To Pharmacy For Verification Once Brought In XX 09/17/24 00:00 Not Given CLARIFY RAPHAEL Non-Formulary Medication 1 unit 08/18/24 15:15 Tryngolza SUBDERMAL 09/17/24 15:14 ONCE RAPHAEL Ondansetron HCl 4 mg 08/18/24 01:23 08/22/24 05:00 Ondansetron Inj 4 Mg/2 Ml Vial IV PUSH 4 mg Q4H PRN Administration Nausea Pantoprazole Sodium 40 mg 08/18/24 09:00 08/21/24 09:52 Pantoprazole Sodium Iv 40 Mg Vial IV PUSH 40 mg QAM RAPHAEL Administration Ticagrelor 90 mg 08/18/24 09:00 08/21/24 20:19 Ticagrelor 90 Mg Tablet PO 90 mg Q12HR RAPHAEL Administration Trazodone HCl 200 mg 08/18/24 03:20 08/21/24 20:19 Trazodone Hcl 50 Mg Tablet PO 200 mg HS RAPHAEL Administration Radiology Results: ITS Impressions Abdomen/Pelvis CT 08/17/24 22:32 IMPRESSION: Hepatomegaly with steatosis. No CT evidence of pancreatitis. Inferior malrotation of the left kidney, with chronic mild pelviectasis and caliectasis, likely reflecting some degree of chronic UPJ obstruction, unchanged. Labs Labs: Laboratory Results - last 24 hr 08/21/24 08/21/24 08/21/24 07:47 08:08 11:15 WBC 5.5 RBC 3.48 L Hgb 10.3 L Hct 32.8 L MCV 94.3 MCH 29.6 MCHC 31.4 L RDW 14.8 H Plt Count 221 MPV 9.3 Immature Gran % (Auto) 0.5 Neut % (Auto) 59.8 Lymph % (Auto) 30.4 [place] % (Auto) 7.3 Eos % (Auto) 1.6 Baso % (Auto) 0.4 Lymph # (Auto) 1.67 [place] # (Auto) 0.4 Eos # (Auto) 0.1 Baso # (Auto) 0.0 Abs Immat Gran (auto) 0.03 Absolute Neuts (auto) 3.3 Absolute Nucleated RBC 0.000 Nucleated RBC % 0.0 Sodium 140 Potassium 3.6 Chloride 105 Carbon Dioxide 27 Anion Gap 8 BUN 3 L Creatinine 0.65 L Estim Creat Clear Calc 100 Estimated GFR > 60 Glucose 133 H POC Capillary Glucose 115 H 147 H Hemoglobin A1c 8.5 H Calcium 8.6 Total Bilirubin 0.4 AST 23 ALT 15 Alkaline Phosphatase 70 Total Protein 7.0 Albumin 4.1 08/21/24 08/21/24 08/22/24 16:55 20:49 05:23 WBC 5.0 RBC 3.43 L Hgb 10.1 L Hct 31.9 L MCV 93.0 MCH 29.4 MCHC 31.7 L RDW 14.7 H Plt Count 212 MPV 9.2 Immature Gran % (Auto) 0.6 H Neut % (Auto) 56.8 Lymph % (Auto) 34.2 [place] % (Auto) 6.0 Eos % (Auto) 1.8 Baso % (Auto) 0.6 Lymph # (Auto) 1.72 [place] # (Auto) 0.3 Eos # (Auto) 0.1 Baso # (Auto) 0.0 Abs Immat Gran (auto) 0.03 Absolute Neuts (auto) 2.9 Absolute Nucleated RBC 0.000 Nucleated RBC % 0.0 Sodium 140 Potassium 3.3 L Chloride 107 Carbon Dioxide 24 Anion Gap 9 BUN 2 L Creatinine 0.56 L Estim Creat Clear Calc 114 Estimated GFR > 60 Glucose 131 H POC Capillary Glucose 129 H 154 H Hemoglobin A1c Calcium 8.5 Total Bilirubin 0.4 AST 24 ALT 16 Alkaline Phosphatase 70 Total Protein 6.0 L Albumin 4.0 Quality VTE Prophylaxis VTE prophylaxis: mechanical ordered and pharmacologic ordered
[2024-08-22] MEDS: DOCUSATE SODIUM 100 MG CAPSULE PO ×2 (07:48→21:20)
[2024-08-22] MEDS: TICAGRELOR 90 MG TABLET PO ×2 (07:48→21:20)
[2024-08-22 07:49] VITALS: PULSE 76
[2024-08-22 07:49] LABS: Glucose Point of Care 132 mg/dl (65-105)
[2024-08-22] MEDS: ASPIRIN 81 MG ENTERIC TABLET PO (07:49)
[2024-08-22] MEDS: METOPROLOL SUCCINATE EXT REL 12.5 MG TABCR PO (07:49)
[2024-08-22] MEDS: CITALOPRAM HYDROBROMIDE 20 MG TABLET 40 MG PO (07:49)
[2024-08-22] MEDS: LIPASE/AMYLASE/PROTEASE 12,000 UNITS CAP 6 CAP PO ×3 (07:49→17:37)
[2024-08-22] MEDS: HYDROcodone/acetaminophen (*CRX) 10-325 MG TABLET 1 TAB PO (07:55)
[2024-08-22] MEDS: PANTOPRAZOLE SODIUM IV 40 MG VIAL IV PUSH (07:55)
[2024-08-22 11:50] LABS: Glucose Point of Care 138 mg/dl (65-105)
[2024-08-22 12:54] LABS: Triglycerides 522 mg/dL (<150)
[2024-08-22] MEDS: METOCLOPRAMIDE HCL INJ 10 MG/2 ML VIAL IV PUSH ×2 (13:19→21:20)
--- NOTE | 2024-08-22 13:35 | P.PNGI_ITS ---
Progress Note: A&P Assessment and Plan (1) Chronic pancreatitis: Onset Date: ~09/02/23 Qualifiers: Pancreatitis type: other Qualified Code(s): K86.1 - Other chronic pancreatitis Code(s): K86.1 - Other chronic pancreatitis Status: Chronic Assessment and Plan: The patient's persistent postprandial abdominal pain is more consistent with her underlying gastroparesis than acid-related pathology. Therefore, management will focus on prokinetics. I will initiate metoclopramide 10 mg IV every 8 hours today to assess her clinical response, with consideration for transitioning back to her oral baseline dose tomorrow. Supplemental Mylanta will be added, and IV pantoprazole discontinued. Additionally, her triglyceride levels are near normal, bringing her close to approval for subcutaneous hypertriglyceridemia medication. (2) Abdominal pain: Code(s): R10.9 - Unspecified abdominal pain Status: Acute Subjective Date/time seen: 08/22/24 13:35 Interval history: The patient continues to have almost steady, sharp, moderate abdominal pain involving epigastrium and both upper quadrants. Nausea is relieved by ondansetron. She continues to have postprandial fullness. Of note, she takes metoclopramide at home but is not receiving it during this admission. Exam Narrative: Abdomen: Soft, nontender, nondistended, bowel sounds present, no masses. Rest of the exam within normal limits. Objective Data Vital Signs Vital Signs: Vital Signs - 24 hr 08/21/24 16:30 08/21/24 20:20 08/21/24 20:46 Temperature 97.3 F L 98.1 F Pulse Rate 78 71 71 Respiratory Rate 18 14 14 Blood Pressure 130/67 126/64 Pulse Oximetry 100 98 98 Oxygen Delivery Room Air 08/22/24 04:50 08/22/24 07:49 08/22/24 08:00 Temperature 97.6 F Pulse Rate 79 76 Respiratory Rate 14 Blood Pressure 99/51 L Pulse Oximetry 97 Oxygen Delivery Room Air Intake/Output Intake/Output: Intake & Output 08/19/24 08/20/24 08/21/24 08/22/24 23:59 23:59 23:59 23:59 Intake Total 4357.5 3598 4330 360 Balance 4357.5 3598 4330 360 Meds/Results Medications: Active Medications Generic Name Dose Route Start Last Admin Trade Name Freq PRN Reason Stop Dose Admin Acetaminophen 650 mg 08/18/24 01:23 Acetaminophen 325 Mg Tablet PO Q4H PRN Mild Pain (1-3) or Fever Hydrocodone Bitart/Acetaminophen 1 tab 08/18/24 03:03 08/22/24 07:55 Hydrocodone/Acetaminophen (*Crx) 10-325 Mg Tablet PO 1 tab Q6H PRN Administration Pain Rated 7-10 Al Hydrox/Mg Hydrox/Simethicone 30 ml 08/22/24 12:35 Mag Hydrox/Al Hydrox/Simeth 30 Ml Udc PO Q3HR PRN Indigestion Lipase/Protease/Amylase 6 cap 08/18/24 08:00 08/22/24 11:22 Lipase/Amylase/Protease 12,000 Units Cap PO 6 cap TIDWM RAPHAEL Administration Aspirin 81 mg 08/18/24 09:00 08/22/24 07:49 Aspirin 81 Mg Enteric Tablet PO 81 mg QAM RAPHAEL Administration Atorvastatin Calcium 80 mg 08/18/24 21:00 08/21/24 20:19 Atorvastatin 40 Mg Tablet PO 80 mg HS RAPHAEL Administration Bupropion HCl 150 mg 08/18/24 21:00 08/21/24 20:19 Bupropion Hcl Sr (12 Hr) 150 Mg Tab PO 150 mg HS RAPHAEL Administration Citalopram Hydrobromide 40 mg 08/18/24 09:00 08/22/24 07:49 Citalopram Hydrobromide 20 Mg Tablet PO 40 mg DAILY RAPHAEL Administration Dextrose 12.5 gm 08/18/24 02:57 Dextrose 50% 25 Gm/50 Ml Syringe IV PUSH PRN PRN Hypoglycemia Protocol Diphenhydramine HCl 25 mg 08/18/24 13:32 08/22/24 13:28 Diphenhydramine Hcl Inj 50 Mg/Ml Vial IV PUSH 25 mg Q4H PRN Administration Itching Docusate Sodium 100 mg 08/20/24 14:40 08/22/24 07:48 Docusate Sodium 100 Mg Capsule PO 100 mg Q12HR RAPHAEL Administration Glucose 15 gm 08/18/24 02:57 Glucose Oral Gel 15 Gm Of Glucse In 37.5 Gm Tube PO PRN PRN Hypoglycemia Protocol Hydromorphone HCl 1 mg 08/22/24 11:25 08/22/24 13:19 Hydromorphone Hcl Inj (*Crx) 2 Mg/Ml Vial IV PUSH 1 mg Q3H PRN Administration Pain Rated 7-10 Sodium Chloride 1,000 mls @ 125 mls/hr 08/18/24 01:25 08/21/24 22:50 Normal Saline Iv IV CONT 125 mls/hr .Q8H RAPHAEL Administration Dextrose 1,000 mls @ 100 mls/hr 08/18/24 02:57 Dextrose 5% 1,000 Ml IVPB PRN PRN Hypoglycemia Protocol Insulin Aspart 2 - 5 units 08/18/24 08:00 08/22/24 12:08 Insulin Aspart (*Bkc) 100 Units/Ml SUB-Q Not Given TIDWM RAPHAEL Protocol Insulin Aspart 1 - 2 units 08/18/24 21:00 08/21/24 22:38 Insulin Aspart (*Bkc) 100 Units/Ml SUB-Q Not Given HS RAPHAEL Protocol Levothyroxine Sodium 200 mcg 08/18/24 06:30 08/22/24 06:14 Levothyroxine Sodium 100 Mcg Tablet PO 200 mcg DAILY@0630 RAPHAEL Administration Lorazepam 1 mg 08/18/24 02:54 08/21/24 20:19 Lorazepam (*Crx) 1 Mg Tablet PO 1 mg QHS PRN Administration sleep Metoclopramide HCl 10 mg 08/22/24 14:00 08/22/24 13:19 Metoclopramide Hcl Inj 10 Mg/2 Ml Vial IV PUSH 10 mg Q8HR RAPHAEL Administration Metoprolol Succinate 12.5 mg 08/18/24 09:00 08/22/24 07:49 Metoprolol Succinate Ext Rel 12.5 Mg Tabcr PO 12.5 mg DAILY RAPHAEL Administration Miscellaneous Information 0 each 08/18/24 00:01 08/19/24 05:34 Tryngolza Send To Pharmacy For Verification Once Brought In XX 09/17/24 00:00 Not Given CLARIFY RAPHAEL Non-Formulary Medication 1 unit 08/18/24 15:15 Tryngolza SUBDERMAL 09/17/24 15:14 ONCE RAPHAEL Ondansetron HCl 4 mg 08/18/24 01:23 08/22/24 13:27 Ondansetron Inj 4 Mg/2 Ml Vial IV PUSH 4 mg Q4H PRN Administration Nausea Ticagrelor 90 mg 08/18/24 09:00 08/22/24 07:48 Ticagrelor 90 Mg Tablet PO 90 mg Q12HR RAPHAEL Administration Trazodone HCl 200 mg 08/18/24 03:20 08/21/24 20:19 Trazodone Hcl 50 Mg Tablet PO 200 mg HS RAPHAEL Administration Radiology Results: ITS Impressions Abdomen/Pelvis CT 08/17/24 22:32 IMPRESSION: Hepatomegaly with steatosis. No CT evidence of pancreatitis. Inferior malrotation of the left kidney, with chronic mild pelviectasis and caliectasis, likely reflecting some degree of chronic UPJ obstruction, unchanged. Labs Labs: Laboratory Results - last 24 hr 08/21/24 08/21/24 08/22/24 16:55 20:49 05:18 WBC RBC Hgb Hct MCV MCH MCHC RDW Plt Count MPV Immature Gran % (Auto) Neut % (Auto) Lymph % (Auto) [place] % (Auto) Eos % (Auto) Baso % (Auto) Lymph # (Auto) [place] # (Auto) Eos # (Auto) Baso # (Auto) Abs Immat Gran (auto) Absolute Neuts (auto) Absolute Nucleated RBC Nucleated RBC % Sodium Potassium Chloride Carbon Dioxide Anion Gap BUN Creatinine Estim Creat Clear Calc Estimated GFR Glucose POC Capillary Glucose 129 H 154 H Calcium Total Bilirubin AST ALT Alkaline Phosphatase Total Protein Albumin Triglycerides 522 H 08/22/24 08/22/24 08/22/24 05:23 07:43 11:47 WBC 5.0 RBC 3.43 L Hgb 10.1 L Hct 31.9 L MCV 93.0 MCH 29.4 MCHC 31.7 L RDW 14.7 H Plt Count 212 MPV 9.2 Immature Gran % (Auto) 0.6 H Neut % (Auto) 56.8 Lymph % (Auto) 34.2 [place] % (Auto) 6.0 Eos % (Auto) 1.8 Baso % (Auto) 0.6 Lymph # (Auto) 1.72 [place] # (Auto) 0.3 Eos # (Auto) 0.1 Baso # (Auto) 0.0 Abs Immat Gran (auto) 0.03 Absolute Neuts (auto) 2.9 Absolute Nucleated RBC 0.000 Nucleated RBC % 0.0 Sodium 140 Potassium 3.3 L Chloride 107 Carbon Dioxide 24 Anion Gap 9 BUN 2 L Creatinine 0.56 L Estim Creat Clear Calc 114 Estimated GFR > 60 Glucose 131 H POC Capillary Glucose 132 H 138 H Calcium 8.5 Total Bilirubin 0.4 AST 24 ALT 16 Alkaline Phosphatase 70 Total Protein 6.0 L Albumin 4.0 Triglycerides
[2024-08-22 14:00] VITALS: BP 128/66; PULSE 74; RESP 14; TEMP 36.3; O2SAT 98
[2024-08-22] MEDS: SODIUM CHLORIDE 0.9% IV 1,000 ML 125 ML IV CONT ×2 (14:45→22:52)
[2024-08-22 17:09] LABS: Glucose Point of Care 191 mg/dl (65-105)
--- NOTE | 2024-08-22 18:08 | PC.NURSE ---
On 08/22/24, the TUFTING MACHINE [employer]PER[employer]INGLE [employer]LE, Puja Georges, provided care and completed [facility] documentation on this patient. I have reviewed the [employer]'s documentation and agree with the findings.
[2024-08-22 19:30] LABS: Glucose Point of Care 199 mg/dl (65-105)
[2024-08-22 21:10] VITALS: BP 129/67; PULSE 73; RESP 16; TEMP 36.2; O2SAT 97
[2024-08-22] MEDS: ATORVASTATIN 40 MG TABLET 80 MG PO (21:19)
[2024-08-22] MEDS: buPROPion HCL SR (12 HR) 150 MG TAB PO (21:19)
[2024-08-22] MEDS: traZODone HCL 50 MG TABLET 200 MG PO (21:20)
[2024-08-22] MEDS: LORazepam (*CRX) 1 MG TABLET PO (21:34)
[2024-08-23] MEDS: HYDROmorphone HCL INJ (*CRX) 2 MG/ML VIAL 1 MG IV PUSH ×7 (02:30→23:32)
[2024-08-23] MEDS: diphenhydrAMINE HCl INJ 50 MG/ML VIAL 25 MG IV PUSH ×4 (02:31→21:31)
[2024-08-23] MEDS: ONDANSETRON INJ 4 MG/2 ML VIAL IV PUSH ×4 (02:31→19:28)
[2024-08-23 05:36] VITALS: BP 125/83; PULSE 75; RESP 14; TEMP 36.4; O2SAT 100
[2024-08-23 05:37] LABS: Basophils Percent Auto 0.6 % (0.2-1.2); Eosinophils Absolute Auto 0.1 K/mm3 (0-0.3); Eosinophils Percent Auto 1.8 % (0-4.4); Hematocrit 32.7 % (37.0-47.0); Hemoglobin 10.5 g/dL (12.0-15.0); Immature Granulocyte Absolute 0.02 K/mm3 (0.00-0.031); Immature Granulocyte Percent A 0.4 % (0-0.5); Lymphocytes Absolute Auto 1.51 K/mm3 (0.9-3.2); Lymphocytes Percent Auto 29.7 % (18.3-44.2); Mean Corpuscular HGB Conc 32.1 g/dl (32-36); Mean Corpuscular Hemoglobin 29.2 pg (26-34); Mean Corpuscular Volume 91.1 fl (80-100); Mean Platelet Volume 8.9 fl (7.4-10.4); Monocytes Absolute Auto 0.3 K/mm3 (0.1-0.6); Monocytes Percent Auto 5.7 % (2.6-8.5); Neutrophils Absolute Auto 3.1 K/mm3 (1.3-6.7); Neutrophils Percent Auto 61.8 % (45.5-73.1); Platelet Count Result 202 k/mm3 (150-375); Red Blood Count 3.59 M/mm3 (4.2-5.4); Red Cell Distribution Width 14.6 % (11.5-14.5); White Blood Count 5.1 K/mm3 (4.5-10.0)
[2024-08-23] MEDS: LEVOTHYROXINE SODIUM 100 MCG TABLET 200 MCG PO (05:43)
[2024-08-23] MEDS: METOCLOPRAMIDE HCL INJ 10 MG/2 ML VIAL IV PUSH ×3 (05:43→21:31)
[2024-08-23 05:51] LABS: Alanine Aminotransferase 16 U/L (6-35); Albumin Level 4.1 g/dL (3.5-5.1); Alkaline Phosphatase 73 U/L (38-126); Anion Gap 8 mmol/L (4-12); Aspartate Amino Transferase 23 U/L (14-36); Bilirubin,Total 0.4 mg/dL (0.2-1.3); Blood Urea Nitrogen < 2 mg/dL (7-17); Calcium 8.6 mg/dL (8.4-10.2); Carbon Dioxide 25 mmol/L (22-30); Chloride 107 mmol/L (98-107); Estimated CRCL calculation 114 ml/min; Estimated Glomerular Filt Rate > 60; Glucose 138 mg/dL (65-110); Potassium 3.2 mmol/L (3.4-5.0); Sodium 140 mmol/L (137-145)
--- NOTE | 2024-08-23 07:23 | P.PNIM_ITS ---
Progress Note: A&P Assessment and Plan (1) Chronic pancreatitis: Code(s): K86.1 - Other chronic pancreatitis Status: Acute Assessment and Plan: - chronic, recently approved for Tryngolza to tx high TG - IVF: 9% NS 125ml/hr - trend lipase, currently: 92 - AST, ALT, total bilirubin. trend LFTs. - pain control with Dilaudid increased to q3hr - Metoclopramide prn for nausea - CT abd/pelvis: Hepatomegaly with steatosis. No CT evidence of pancreatitis. Inferior malrotation of the left kidney, unchanged - GI consulted, appreciate recs - Clear liquid diet, advance patient's diet as tolerated. - TG on 08/22 = 522, will repeat today - Repeat lipase wnl (2) Hypertriglyceridemia: Code(s): E78.1 - Pure hyperglyceridemia Status: Chronic Assessment and Plan: - chronic, recently approved for Tryngolza to tx high TG - T - No intervention needed at this time - Repeat TG 08/22 522 - Recheck today (3) Abdominal pain: Qualifiers: Abdominal location: right upper quadrant Qualified Code(s): R10.11 - Right upper quadrant pain Code(s): R10.9 - Unspecified abdominal pain Status: Acute Assessment and Plan: * Chronic abdominal pain likely secondary to Hypertriglyceridemia and Chronic Pancreatitis * Lipase wnl, TG 364 * Continue IVFs and PRN pain control * Diet as tolerated * GI consulted, appreciate recommendations * Improving today (4) Hypothyroidism: Qualifiers: 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 Qualified Code(s): E03.8 - Other specified hypothyroidism; E06.3 - Autoimmune thyroiditis Code(s): E03.9 - Hypothyroidism, unspecified Status: Acute Assessment and Plan: Continue levothyroxine (5) Type 2 diabetes mellitus: Qualifiers: Diabetes mellitus complication status: without complication Diabetes mellitus fdc insulin 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: 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 Qualified Code(s): E11.9 - Type 2 diabetes mellitus without complications; Z79.4 - [facility] (current) use of insulin Code(s): E11.9 - Type 2 diabetes mellitus without complications Status: Chronic Assessment and Plan: - hypoglycemia protocol - POC blood glucose ACHS - home medication - Metformin - correct regimen ordered - low dose TIDWM and HS - A1C pending (6) CAD (coronary artery disease): Code(s): I25.10 - Atherosclerotic heart disease of [place] coronary artery without angina pectoris Status: Acute Assessment and Plan: Continue Brilinta, metoprolol and aspirin Time Spent With Patient Time: - Subjective Date/time seen: 08/23/24 07:23 Interval history: 48-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 08/23/2024 Patient sitting comfortably in bed at time of exam. Gastroenterology seeing patient at time of examination. At this time she denies any chest pain, shortness of breath, vomiting. She still has continued upper abdominal pain and some nausea relieved by metoclopramide. Lipase reordered and was wnl again. Will recheck triglyceride levels today as they were above 500 yesterday. Review of Systems Review of Systems: 12 systems were reviewed and are negativ e except for as per HPI. Exam Narrative: General: well appearing, appears stated age. HEENT: normocephalic, atraumatic. Mucous membranes moist. EOMI, PERRLA Respiratory: clear to ascultation bilaterally. No rales/rhonic/wheezes. Bilateral ports without erythema Cardiovascular: Regular rate and rhythm, normal S1-S2 upon ascultation. No murmurs, rubs, or clicks. Abdomen: LUQ tenderness to palpation. Soft, round, no pulsatile masses, nondistended No rebound, no guarding. No CVA tenderness, no hepatosplenomegaly. Bowel sounds present to all four quadrants. No high pitch or tinkling sounds, resonant to percussion. Extremities: No cyanosis, clubbing, or edema present. Pulses are palpable 2/2. Active ROM to all four extremities. Neuro: Alert and orientated x 4. PERRLA. Skin: Warm, dry, and intact, without rash, erythema, or lesion. Psych: pleasant, cooperative, normal speech, normal affect, Objective Data Vital Signs Vital Signs: Vital Signs - 24 hr 08/22/24 07:49 08/22/24 08:00 08/22/24 14:00 Temperature 97.3 F L Pulse Rate 76 74 Respiratory Rate 14 Blood Pressure 128/66 Pulse Oximetry 98 Oxygen Delivery Room Air 08/22/24 21:10 08/22/24 21:19 08/23/24 05:36 Temperature 97.1 F L 97.6 F Pulse Rate 73 75 Respiratory Rate 16 14 Blood Pressure 129/67 125/83 Pulse Oximetry 97 100 Oxygen Delivery Room Air Intake/Output Intake/Output: Intake & Output 08/20/24 08/21/24 08/22/24 08/23/24 23:59 23:59 23:59 23:59 Intake Total 0823 7365 1715 581 Balance 3003 5210 8073 308 Meds/Results Medications: Active Medications Generic Name Dose Route Start Last Admin Trade Name Freq PRN Reason Stop Dose Admin Acetaminophen 650 mg 08/18/24 01:23 Acetaminophen 325 Mg Tablet PO Q4H PRN Mild Pain (1-3) or Fever Hydrocodone Bitart/Acetaminophen 1 tab 08/18/24 03:03 08/22/24 07:55 Hydrocodone/Acetaminophen (*Crx) 10-325 Mg Tablet PO 1 tab Q6H PRN Administration Pain Rated 7-10 Al Hydrox/Mg Hydrox/Simethicone 30 ml 08/22/24 12:35 Mag Hydrox/Al Hydrox/Simeth 30 Ml Udc PO Q3HR PRN Indigestion Lipase/Protease/Amylase 6 cap 08/18/24 08:00 08/22/24 17:37 Lipase/Amylase/Protease 12,000 Units Cap PO 6 cap TIDWM RAPHAEL Administration Aspirin 81 mg 08/18/24 09:00 08/22/24 07:49 Aspirin 81 Mg Enteric Tablet PO 81 mg QAM RAPHAEL Administration Atorvastatin Calcium 80 mg 08/18/24 21:00 08/22/24 21:19 Atorvastatin 40 Mg Tablet PO 80 mg HS RAPHAEL Administration Bupropion HCl 150 mg 08/18/24 21:00 08/22/24 21:19 Bupropion Hcl Sr (12 Hr) 150 Mg Tab PO 150 mg HS RAPHAEL Administration Citalopram Hydrobromide 40 mg 08/18/24 09:00 08/22/24 07:49 Citalopram Hydrobromide 20 Mg Tablet PO 40 mg DAILY RAPHAEL Administration Dextrose 12.5 gm 08/18/24 02:57 Dextrose 50% 25 Gm/50 Ml Syringe IV PUSH PRN PRN Hypoglycemia Protocol Diphenhydramine HCl 25 mg 08/18/24 13:32 08/23/24 02:31 Diphenhydramine Hcl Inj 50 Mg/Ml Vial IV PUSH 25 mg Q4H PRN Administration Itching Docusate Sodium 100 mg 08/20/24 14:40 08/22/24 21:20 Docusate Sodium 100 Mg Capsule PO 100 mg Q12HR RAPHAEL Administration Glucose 15 gm 08/18/24 02:57 Glucose Oral Gel 15 Gm Of Glucse In 37.5 Gm Tube PO PRN PRN Hypoglycemia Protocol Hydromorphone HCl 1 mg 08/22/24 11:25 08/23/24 05:43 Hydromorphone Hcl Inj (*Crx) 2 Mg/Ml Vial IV PUSH 1 mg Q3H PRN Administration Pain Rated 7-10 Sodium Chloride 1,000 mls @ 125 mls/hr 08/18/24 01:25 08/22/24 22:52 Normal Saline Iv IV CONT 125 mls/hr .Q8H RAPHAEL Administration Dextrose 1,000 mls @ 100 mls/hr 08/18/24 02:57 Dextrose 5% 1,000 Ml IVPB PRN PRN Hypoglycemia Protocol Insulin Aspart 2 - 5 units 08/18/24 08:00 08/22/24 17:40 Insulin Aspart (*Bkc) 100 Units/Ml SUB-Q Not Given TIDWM RAPHAEL Protocol Insulin Aspart 1 - 2 units 08/18/24 21:00 08/22/24 21:22 Insulin Aspart (*Bkc) 100 Units/Ml SUB-Q Not Given HS RAPHAEL Protocol Levothyroxine Sodium 200 mcg 08/18/24 06:30 08/23/24 05:43 Levothyroxine Sodium 100 Mcg Tablet PO 200 mcg DAILY@0630 RAPHAEL Administration Lorazepam 1 mg 08/18/24 02:54 08/22/24 21:34 Lorazepam (*Crx) 1 Mg Tablet PO 1 mg QHS PRN Administration sleep Metoclopramide HCl 10 mg 08/22/24 14:00 08/23/24 05:43 Metoclopramide Hcl Inj 10 Mg/2 Ml Vial IV PUSH 10 mg Q8HR RAPHAEL Administration Metoprolol Succinate 12.5 mg 08/18/24 09:00 08/22/24 07:49 Metoprolol Succinate Ext Rel 12.5 Mg Tabcr PO 12.5 mg DAILY RAPHAEL Administration Miscellaneous Information 0 each 08/18/24 00:01 08/19/24 05:34 Tryngolza Send To Pharmacy For Verification Once Brought In XX 09/17/24 00:00 Not Given CLARIFY RAPHAEL Non-Formulary Medication 1 unit 08/18/24 15:15 Tryngolza SUBDERMAL 09/17/24 15:14 ONCE RAPHAEL Ondansetron HCl 4 mg 08/18/24 01:23 08/23/24 02:31 Ondansetron Inj 4 Mg/2 Ml Vial IV PUSH 4 mg Q4H PRN Administration Nausea Ticagrelor 90 mg 08/18/24 09:00 08/22/24 21:20 Ticagrelor 90 Mg Tablet PO 90 mg Q12HR RAPHAEL Administration Trazodone HCl 200 mg 08/18/24 03:20 08/22/24 21:20 Trazodone Hcl 50 Mg Tablet PO 200 mg HS RAPHAEL Administration Radiology Results: ITS Impressions Abdomen/Pelvis CT 08/17/24 22:32 IMPRESSION: Hepatomegaly with steatosis. No CT evidence of pancreatitis. Inferior malrotation of the left kidney, with chronic mild pelviectasis and caliectasis, likely reflecting some degree of chronic UPJ obstruction, unchanged. Labs Labs: Laboratory Results - last 24 hr 08/22/24 08/22/24 08/22/24 05:18 07:43 11:47 WBC RBC Hgb Hct MCV MCH MCHC RDW Plt Count MPV Immature Gran % (Auto) Neut % (Auto) Lymph % (Auto) [place] % (Auto) Eos % (Auto) Baso % (Auto) Lymph # (Auto) [place] # (Auto) Eos # (Auto) Baso # (Auto) Abs Immat Gran (auto) Absolute Neuts (auto) Absolute Nucleated RBC Nucleated RBC % Sodium Potassium Chloride Carbon Dioxide Anion Gap BUN Creatinine Estim Creat Clear Calc Estimated GFR Glucose POC Capillary Glucose 132 H 138 H Calcium Total Bilirubin AST ALT Alkaline Phosphatase Total Protein Albumin Triglycerides 522 H 08/22/24 08/22/24 08/23/24 17:00 19:25 05:28 WBC 5.1 RBC 3.59 L Hgb 10.5 L Hct 32.7 L MCV 91.1 MCH 29.2 MCHC 32.1 RDW 14.6 H Plt Count 202 MPV 8.9 Immature Gran % (Auto) 0.4 Neut % (Auto) 61.8 Lymph % (Auto) 29.7 [place] % (Auto) 5.7 Eos % (Auto) 1.8 Baso % (Auto) 0.6 Lymph # (Auto) 1.51 [place] # (Auto) 0.3 Eos # (Auto) 0.1 Baso # (Auto) 0.0 Abs Immat Gran (auto) 0.02 Absolute Neuts (auto) 3.1 Absolute Nucleated RBC 0.000 Nucleated RBC % 0.0 Sodium 140 Potassium 3.2 L Chloride 107 Carbon Dioxide 25 Anion Gap 8 BUN < 2 L Creatinine 0.56 L Estim Creat Clear Calc 114 Estimated GFR > 60 Glucose 138 H POC Capillary Glucose 191 H 199 H Calcium 8.6 Total Bilirubin 0.4 AST 23 ALT 16 Alkaline Phosphatase 73 Total Protein 7.0 Albumin 4.1 Triglycerides Quality VTE Prophylaxis VTE prophylaxis: mechanical ordered and pharmacologic ordered
[2024-08-23] MEDS: SODIUM CHLORIDE 0.9% IV 1,000 ML 125 ML IV CONT ×3 (07:30→23:33)
[2024-08-23 08:20] LABS: Glucose Point of Care 145 mg/dl (65-105)
[2024-08-23 09:20] VITALS: PULSE 70
[2024-08-23] MEDS: TICAGRELOR 90 MG TABLET PO ×2 (09:20→20:29)
[2024-08-23] MEDS: METOPROLOL SUCCINATE EXT REL 12.5 MG TABCR PO (09:20)
[2024-08-23] MEDS: ASPIRIN 81 MG ENTERIC TABLET PO (09:20)
[2024-08-23] MEDS: DOCUSATE SODIUM 100 MG CAPSULE PO ×2 (09:20→20:29)
[2024-08-23] MEDS: CITALOPRAM HYDROBROMIDE 20 MG TABLET 40 MG PO (09:20)
[2024-08-23 10:51] LABS: Lipase 30 U/L (23-300)
--- NOTE | 2024-08-23 11:21 | WPDGIPROGNO ---
Progress Note: A&P Assessment and Plan (1) Abdominal pain: Code(s): R10.9 - Unspecified abdominal pain Status: Acute Assessment and Plan: The patient's primary complaint today is worsening, diffuse abdominal pain, predominantly localized to the lower abdomen. This is likely exacerbated by several days of constipation. The ongoing use of narcotic analgesics is undoubtedly contributing to her constipation, establishing a negative feedback loop where pain needs narcotics, which worsen constipation, thus contributing to further abdominal discomfort. To address the constipation, I will prescribe MiraLax on a standing order until adequate bowel function is established. Additionally, given her history and the new onset of diffuse abdominal pain, a lipase level will be obtained to evaluate for acute pancreatitis. Of note, her triglyceride level was greater than 500 mg/dL yesterday, which significantly elevates her risk for pancreatitis. A repeat triglyceride level will be checked today to assess for any change. (2) Chronic pancreatitis: Onset Date: ~09/02/23 Qualifiers: Pancreatitis type: other Qualified Code(s): K86.1 - Other chronic pancreatitis Code(s): K86.1 - Other chronic pancreatitis Status: Chronic Subjective Date/time seen: 08/23/24 11:21 Interval history: The patient is complaining of diffuse abdominal pain, now more predominant in the lower quadrants. Of note, she has not had a bowel movement since she was admitted, 4 days ago. There is no nausea vomiting. Her food tolerance is not much improved despite the initiation of metoclopramide 10 mg IV every 8 hours. Exam Narrative: Abdomen: Tympanitic, soft, nontender. Rest of the exam within normal limits. Objective Data Vital Signs Vital Signs: Vital Signs - 24 hr 08/22/24 14:00 08/22/24 21:10 08/22/24 21:19 Temperature 97.3 F L 97.1 F L Pulse Rate 74 73 Respiratory Rate 14 16 Blood Pressure 128/66 129/67 Pulse Oximetry 98 97 Oxygen Delivery Room Air 08/23/24 05:36 08/23/24 09:20 Temperature 97.6 F Pulse Rate 75 70 Respiratory Rate 14 Blood Pressure 125/83 Pulse Oximetry 100 Oxygen Delivery Intake/Output Intake/Output: Intake & Output 08/20/24 08/21/24 08/22/24 08/23/24 23:59 23:59 23:59 23:59 Intake Total 3598 4330 2717 1340 Balance 3598 4330 2717 1340 Meds/Results Medications: Active Medications Generic Name Dose Route Start Last Admin Trade Name Freq PRN Reason Stop Dose Admin Acetaminophen 650 mg 08/18/24 01:23 Acetaminophen 325 Mg Tablet PO Q4H PRN Mild Pain (1-3) or Fever Hydrocodone Bitart/Acetaminophen 1 tab 08/18/24 03:03 08/22/24 07:55 Hydrocodone/Acetaminophen (*Crx) 10-325 Mg Tablet PO 1 tab Q6H PRN Administration Pain Rated 7-10 Al Hydrox/Mg Hydrox/Simethicone 30 ml 08/22/24 12:35 Mag Hydrox/Al Hydrox/Simeth 30 Ml Udc PO Q3HR PRN Indigestion Lipase/Protease/Amylase 6 cap 08/18/24 08:00 08/23/24 09:30 Lipase/Amylase/Protease 12,000 Units Cap PO Not Given TIDWM RAPHAEL Aspirin 81 mg 08/18/24 09:00 08/23/24 09:20 Aspirin 81 Mg Enteric Tablet PO 81 mg QAM RAPHAEL Administration Atorvastatin Calcium 80 mg 08/18/24 21:00 08/22/24 21:19 Atorvastatin 40 Mg Tablet PO 80 mg HS RAPHAEL Administration Bupropion HCl 150 mg 08/18/24 21:00 08/22/24 21:19 Bupropion Hcl Sr (12 Hr) 150 Mg Tab PO 150 mg HS RAPHAEL Administration Citalopram Hydrobromide 40 mg 08/18/24 09:00 08/23/24 09:20 Citalopram Hydrobromide 20 Mg Tablet PO 40 mg DAILY RAPHAEL Administration Dextrose 12.5 gm 08/18/24 02:57 Dextrose 50% 25 Gm/50 Ml Syringe IV PUSH PRN PRN Hypoglycemia Protocol Diphenhydramine HCl 25 mg 08/18/24 13:32 08/23/24 02:31 Diphenhydramine Hcl Inj 50 Mg/Ml Vial IV PUSH 25 mg Q4H PRN Administration Itching Docusate Sodium 100 mg 08/20/24 14:40 08/23/24 09:20 Docusate Sodium 100 Mg Capsule PO 100 mg Q12HR RAPHAEL Administration Glucose 15 gm 08/18/24 02:57 Glucose Oral Gel 15 Gm Of Glucse In 37.5 Gm Tube PO PRN PRN Hypoglycemia Protocol Hydromorphone HCl 1 mg 08/22/24 11:25 08/23/24 09:24 Hydromorphone Hcl Inj (*Crx) 2 Mg/Ml Vial IV PUSH 1 mg Q3H PRN Administration Pain Rated 7-10 Sodium Chloride 1,000 mls @ 125 mls/hr 08/18/24 01:25 08/23/24 07:30 Normal Saline Iv IV CONT 125 mls/hr .Q8H RAPHAEL Administration Dextrose 1,000 mls @ 100 mls/hr 08/18/24 02:57 Dextrose 5% 1,000 Ml IVPB PRN PRN Hypoglycemia Protocol Insulin Aspart 2 - 5 units 08/18/24 08:00 08/23/24 09:18 Insulin Aspart (*Bkc) 100 Units/Ml SUB-Q Not Given TIDWM RAPHAEL Protocol Insulin Aspart 1 - 2 units 08/18/24 21:00 08/22/24 21:22 Insulin Aspart (*Bkc) 100 Units/Ml SUB-Q Not Given HS RAPHAEL Protocol Levothyroxine Sodium 200 mcg 08/18/24 06:30 08/23/24 05:43 Levothyroxine Sodium 100 Mcg Tablet PO 200 mcg DAILY@0630 RAPHAEL Administration Lorazepam 1 mg 08/18/24 02:54 08/22/24 21:34 Lorazepam (*Crx) 1 Mg Tablet PO 1 mg QHS PRN Administration sleep Metoclopramide HCl 10 mg 08/22/24 14:00 08/23/24 05:43 Metoclopramide Hcl Inj 10 Mg/2 Ml Vial IV PUSH 10 mg Q8HR RAPHAEL Administration Metoprolol Succinate 12.5 mg 08/18/24 09:00 08/23/24 09:20 Metoprolol Succinate Ext Rel 12.5 Mg Tabcr PO 12.5 mg DAILY RAPHAEL Administration Miscellaneous Information 0 each 08/18/24 00:01 08/19/24 05:34 Tryngolza Send To Pharmacy For Verification Once Brought In XX 09/17/24 00:00 Not Given CLARIFY RAPHAEL Non-Formulary Medication 1 unit 08/18/24 15:15 Tryngolza SUBDERMAL 09/17/24 15:14 ONCE RAPHAEL Ondansetron HCl 4 mg 08/18/24 01:23 08/23/24 09:24 Ondansetron Inj 4 Mg/2 Ml Vial IV PUSH 4 mg Q4H PRN Administration Nausea Polyethylene Glycol 17 gm 08/23/24 10:32 Polyethylene Glycol 3350 17 Gm Powd.Pack PO QAM PRN Constipation Ticagrelor 90 mg 08/18/24 09:00 08/23/24 09:20 Ticagrelor 90 Mg Tablet PO 90 mg Q12HR RAPHAEL Administration Trazodone HCl 200 mg 08/18/24 03:20 08/22/24 21:20 Trazodone Hcl 50 Mg Tablet PO 200 mg HS RAPHAEL Administration Radiology Results: ITS Impressions Abdomen/Pelvis CT 08/17/24 22:32 IMPRESSION: Hepatomegaly with steatosis. No CT evidence of pancreatitis. Inferior malrotation of the left kidney, with chronic mild pelviectasis and caliectasis, likely reflecting some degree of chronic UPJ obstruction, unchanged. Labs Labs: Laboratory Results - last 24 hr 08/22/24 08/22/24 08/22/24 05:18 11:47 17:00 WBC RBC Hgb Hct MCV MCH MCHC RDW Plt Count MPV Immature Gran % (Auto) Neut % (Auto) Lymph % (Auto) [place] % (Auto) Eos % (Auto) Baso % (Auto) Lymph # (Auto) [place] # (Auto) Eos # (Auto) Baso # (Auto) Abs Immat Gran (auto) Absolute Neuts (auto) Absolute Nucleated RBC Nucleated RBC % Sodium Potassium Chloride Carbon Dioxide Anion Gap BUN Creatinine Estim Creat Clear Calc Estimated GFR Glucose POC Capillary Glucose 138 H 191 H Calcium Total Bilirubin AST ALT Alkaline Phosphatase Total Protein Albumin Triglycerides 522 H Lipase 08/22/24 08/23/24 08/23/24 19:25 05:28 08:15 WBC 5.1 RBC 3.59 L Hgb 10.5 L Hct 32.7 L MCV 91.1 MCH 29.2 MCHC 32.1 RDW 14.6 H Plt Count 202 MPV 8.9 Immature Gran % (Auto) 0.4 Neut % (Auto) 61.8 Lymph % (Auto) 29.7 [place] % (Auto) 5.7 Eos % (Auto) 1.8 Baso % (Auto) 0.6 Lymph # (Auto) 1.51 [place] # (Auto) 0.3 Eos # (Auto) 0.1 Baso # (Auto) 0.0 Abs Immat Gran (auto) 0.02 Absolute Neuts (auto) 3.1 Absolute Nucleated RBC 0.000 Nucleated RBC % 0.0 Sodium 140 Potassium 3.2 L Chloride 107 Carbon Dioxide 25 Anion Gap 8 BUN < 2 L Creatinine 0.56 L Estim Creat Clear Calc 114 Estimated GFR > 60 Glucose 138 H POC Capillary Glucose 199 H 145 H Calcium 8.6 Total Bilirubin 0.4 AST 23 ALT 16 Alkaline Phosphatase 73 Total Protein 7.0 Albumin 4.1 Triglycerides Lipase 30
[2024-08-23 11:50] LABS: Glucose Point of Care 142 mg/dl (65-105)
[2024-08-23] MEDS: LIPASE/AMYLASE/PROTEASE 12,000 UNITS CAP 6 CAP PO ×2 (11:51→17:27)
[2024-08-23 14:00] VITALS: BP 109/78; PULSE 82; RESP 18; TEMP 35.8; O2SAT 94
[2024-08-23 16:29] LABS: Glucose Point of Care 172 mg/dl (65-105)
[2024-08-23] MEDS: HYDROcodone/acetaminophen (*CRX) 10-325 MG TABLET 1 TAB PO (19:28)
[2024-08-23] MEDS: traZODone HCL 50 MG TABLET 200 MG PO (20:29)
[2024-08-23] MEDS: LORazepam (*CRX) 1 MG TABLET PO (20:29)
[2024-08-23] MEDS: ATORVASTATIN 40 MG TABLET 80 MG PO (20:29)
[2024-08-23] MEDS: buPROPion HCL SR (12 HR) 150 MG TAB PO (20:29)
[2024-08-23] MEDS: INSULIN ASPART (*BKC) 100 UNITS/ML SUB-Q (20:39)
[2024-08-23 21:08] LABS: Glucose Point of Care 223 mg/dl (65-105)
[2024-08-23 21:28] VITALS: BP 135/74; PULSE 72; RESP 18; TEMP 36; O2SAT 98
[2024-08-24] MEDS: HYDROmorphone HCL INJ (*CRX) 2 MG/ML VIAL 1 MG IV PUSH ×5 (03:28→22:24)
[2024-08-24] MEDS: diphenhydrAMINE HCl INJ 50 MG/ML VIAL 25 MG IV PUSH ×4 (03:29→20:27)
[2024-08-24] MEDS: LEVOTHYROXINE SODIUM 100 MCG TABLET 200 MCG PO (05:33)
[2024-08-24] MEDS: METOCLOPRAMIDE HCL INJ 10 MG/2 ML VIAL IV PUSH ×3 (05:35→22:24)
[2024-08-24 05:40] VITALS: BP 116/70; PULSE 74; RESP 18; TEMP 35.8; O2SAT 97
[2024-08-24 06:05] LABS: Basophils Percent Auto 0.6 % (0.2-1.2); Eosinophils Absolute Auto 0.1 K/mm3 (0-0.3); Eosinophils Percent Auto 1.8 % (0-4.4); Hematocrit 33.5 % (37.0-47.0); Hemoglobin 10.8 g/dL (12.0-15.0); Immature Granulocyte Absolute 0.03 K/mm3 (0.00-0.031); Immature Granulocyte Percent A 0.6 % (0-0.5); Lymphocytes Absolute Auto 1.72 K/mm3 (0.9-3.2); Lymphocytes Percent Auto 31.6 % (18.3-44.2); Mean Corpuscular HGB Conc 32.2 g/dl (32-36); Mean Corpuscular Hemoglobin 29.3 pg (26-34); Monocytes Absolute Auto 0.3 K/mm3 (0.1-0.6); Monocytes Percent Auto 5.7 % (2.6-8.5); Neutrophils Absolute Auto 3.3 K/mm3 (1.3-6.7); Neutrophils Percent Auto 59.7 % (45.5-73.1); Platelet Count Result 206 k/mm3 (150-375); Red Blood Count 3.68 M/mm3 (4.2-5.4); Red Cell Distribution Width 14.6 % (11.5-14.5); White Blood Count 5.4 K/mm3 (4.5-10.0)
[2024-08-24 06:17] LABS: Alanine Aminotransferase 19 U/L (6-35); Albumin Level 4.2 g/dL (3.5-5.1); Alkaline Phosphatase 75 U/L (38-126); Anion Gap 10 mmol/L (4-12); Aspartate Amino Transferase 27 U/L (14-36); Bilirubin,Total 0.4 mg/dL (0.2-1.3); Calcium 8.7 mg/dL (8.4-10.2); Carbon Dioxide 26 mmol/L (22-30); Chloride 105 mmol/L (98-107); Estimated CRCL calculation 110 ml/min; Estimated Glomerular Filt Rate > 60; Glucose 174 mg/dL (65-110); Potassium 3.7 mmol/L (3.4-5.0); Sodium 141 mmol/L (137-145)
[2024-08-24 06:32] LABS: Blood Urea Nitrogen < 2 mg/dL (7-17)
--- NOTE | 2024-08-24 06:41 | WPDGIPROGNO ---
Progress Note: A&P Assessment and Plan (1) Constipation: Code(s): K59.00 - Constipation, unspecified Status: Acute Assessment and Plan: The patient's current abdominal pain is most likely attributed to significant constipation, evidenced by no bowel movements since admission. Her underlying diffuse gastrointestinal dysmotility, her diabetes, with prominent gastroparesis, is further complicated by the constipating effects of frequent ondansetron and narcotic use. Given the severity of constipation, stool softeners are not effective. We will start high-dose osmotic therapy with MiraLax (119 g mixed in 32 oz of Gatorade) to be repeated every 6 hours until a bowel movement occurs. We suggest prioritizing de-escalation of narcotic analgesics to non-narcotic alternatives for pain management. The previously normal lipase level makes acute pancreatitis an unlikely cause of her present pain. Triglyceride levels were on the rise yesterday, today's level is still pending. Subjective Date/time seen: 08/24/24 06:42 Interval history: The patient continues to have diffuse, moderate abdominal pain, predominantly in lower quadrants. She did not have a bowel movement since admission. She also endorses nausea but no vomiting. Exam Narrative: Abdomen: Soft, Mildly tender in both flanks and lower quadrants, nondistended, no rebound. rest of the exam within normal limits. Objective Data Vital Signs Vital Signs: Vital Signs - 24 hr 08/23/24 08:00 08/23/24 09:20 08/23/24 14:00 Temperature 96.5 F L Pulse Rate 70 82 Respiratory Rate 18 Blood Pressure 109/78 Pulse Oximetry 94 Oxygen Delivery Room Air 08/23/24 20:00 08/23/24 21:28 08/24/24 05:40 Temperature 96.8 F L 96.5 F L Pulse Rate 72 74 Respiratory Rate 18 18 Blood Pressure 135/74 116/70 Pulse Oximetry 98 97 Oxygen Delivery Room Air Intake/Output Intake/Output: Intake & Output 08/21/24 08/22/24 08/23/24 08/24/24 23:59 23:59 23:59 23:59 Intake Total 4330 2717 3894.2 320 Balance 4330 2717 3894.2 320 Meds/Results Medications: Active Medications Generic Name Dose Route Start Last Admin Trade Name Freq PRN Reason Stop Dose Admin Acetaminophen 650 mg 08/18/24 01:23 Acetaminophen 325 Mg Tablet PO Q4H PRN Mild Pain (1-3) or Fever Hydrocodone Bitart/Acetaminophen 1 tab 08/18/24 03:03 08/23/24 19:28 Hydrocodone/Acetaminophen (*Crx) 10-325 Mg Tablet PO 1 tab Q6H PRN Administration Pain Rated 7-10 Al Hydrox/Mg Hydrox/Simethicone 30 ml 08/22/24 12:35 Mag Hydrox/Al Hydrox/Simeth 30 Ml Udc PO Q3HR PRN Indigestion Lipase/Protease/Amylase 6 cap 08/18/24 08:00 08/23/24 17:27 Lipase/Amylase/Protease 12,000 Units Cap PO 6 cap TIDWM RAPHAEL Administration Aspirin 81 mg 08/18/24 09:00 08/23/24 09:20 Aspirin 81 Mg Enteric Tablet PO 81 mg QAM RAPHAEL Administration Atorvastatin Calcium 80 mg 08/18/24 21:00 08/23/24 20:29 Atorvastatin 40 Mg Tablet PO 80 mg HS RAPHAEL Administration Bupropion HCl 150 mg 08/18/24 21:00 08/23/24 20:29 Bupropion Hcl Sr (12 Hr) 150 Mg Tab PO 150 mg HS RAPHAEL Administration Citalopram Hydrobromide 40 mg 08/18/24 09:00 08/23/24 09:20 Citalopram Hydrobromide 20 Mg Tablet PO 40 mg DAILY RAPHAEL Administration Dextrose 12.5 gm 08/18/24 02:57 Dextrose 50% 25 Gm/50 Ml Syringe IV PUSH PRN PRN Hypoglycemia Protocol Diphenhydramine HCl 25 mg 08/18/24 13:32 08/24/24 03:29 Diphenhydramine Hcl Inj 50 Mg/Ml Vial IV PUSH 25 mg Q4H PRN Administration Itching Docusate Sodium 100 mg 08/20/24 14:40 08/23/24 20:29 Docusate Sodium 100 Mg Capsule PO 100 mg Q12HR RAPHAEL Administration Glucose 15 gm 08/18/24 02:57 Glucose Oral Gel 15 Gm Of Glucse In 37.5 Gm Tube PO PRN PRN Hypoglycemia Protocol Hydromorphone HCl 1 mg 08/22/24 11:25 08/24/24 06:35 Hydromorphone Hcl Inj (*Crx) 2 Mg/Ml Vial IV PUSH 1 mg Q3H PRN Administration Pain Rated 7-10 Sodium Chloride 1,000 mls @ 125 mls/hr 08/18/24 01:25 08/23/24 23:33 Normal Saline Iv IV CONT 125 mls/hr .Q8H RAPHAEL Administration Dextrose 1,000 mls @ 100 mls/hr 08/18/24 02:57 Dextrose 5% 1,000 Ml IVPB PRN PRN Hypoglycemia Protocol Insulin Aspart 2 - 5 units 08/18/24 08:00 08/23/24 17:18 Insulin Aspart (*Bkc) 100 Units/Ml SUB-Q Not Given TIDWM RAPHAEL Protocol Insulin Aspart 1 - 2 units 08/18/24 21:00 08/23/24 20:39 Insulin Aspart (*Bkc) 100 Units/Ml SUB-Q 1 units HS RAPHAEL Administration Protocol Levothyroxine Sodium 200 mcg 08/18/24 06:30 08/24/24 05:33 Levothyroxine Sodium 100 Mcg Tablet PO 200 mcg DAILY@0630 RAPHAEL Administration Lorazepam 1 mg 08/18/24 02:54 08/23/24 20:29 Lorazepam (*Crx) 1 Mg Tablet PO 1 mg QHS PRN Administration sleep Metoclopramide HCl 10 mg 08/22/24 14:00 08/24/24 05:35 Metoclopramide Hcl Inj 10 Mg/2 Ml Vial IV PUSH 10 mg Q8HR RAPHAEL Administration Metoprolol Succinate 12.5 mg 08/18/24 09:00 08/23/24 09:20 Metoprolol Succinate Ext Rel 12.5 Mg Tabcr PO 12.5 mg DAILY RAPHAEL Administration Miscellaneous Information 0 each 08/18/24 00:01 08/19/24 05:34 Tryngolza Send To Pharmacy For Verification Once Brought In XX 09/17/24 00:00 Not Given CLARIFY RAPHAEL Non-Formulary Medication 1 unit 08/18/24 15:15 Tryngolza SUBDERMAL 09/17/24 15:14 ONCE RAPHAEL Ondansetron HCl 4 mg 08/18/24 01:23 08/23/24 19:28 Ondansetron Inj 4 Mg/2 Ml Vial IV PUSH 4 mg Q4H PRN Administration Nausea Polyethylene Glycol 17 gm 08/23/24 10:32 Polyethylene Glycol 3350 17 Gm Powd.Pack PO QAM PRN Constipation Polyethylene Glycol 119 gm 08/24/24 07:00 Polyethylene Glycol 3350 238 Gm Bottle PO 04/28/25 12:01 Q6HR RAPHAEL Ticagrelor 90 mg 08/18/24 09:00 08/23/24 20:29 Ticagrelor 90 Mg Tablet PO 90 mg Q12HR RAPHAEL Administration Trazodone HCl 200 mg 08/18/24 03:20 08/23/24 20:29 Trazodone Hcl 50 Mg Tablet PO 200 mg HS ARPHAEL Administration Radiology Results: ITS Impressions Abdomen/Pelvis CT 08/17/24 22:32 IMPRESSION: Hepatomegaly with steatosis. No CT evidence of pancreatitis. Inferior malrotation of the left kidney, with chronic mild pelviectasis and caliectasis, likely reflecting some degree of chronic UPJ obstruction, unchanged. Labs Labs: Laboratory Results - last 24 hr 08/23/24 08/23/24 08/23/24 05:28 08:15 11:33 WBC RBC Hgb Hct MCV MCH MCHC RDW Plt Count MPV Immature Gran % (Auto) Neut % (Auto) Lymph % (Auto) [place] % (Auto) Eos % (Auto) Baso % (Auto) Lymph # (Auto) [place] # (Auto) Eos # (Auto) Baso # (Auto) Abs Immat Gran (auto) Absolute Neuts (auto) Absolute Nucleated RBC Nucleated RBC % Sodium Potassium Chloride Carbon Dioxide Anion Gap BUN Creatinine Estim Creat Clear Calc Estimated GFR Glucose POC Capillary Glucose 145 H 142 H Calcium Total Bilirubin AST ALT Alkaline Phosphatase Total Protein Albumin Lipase 30 08/23/24 08/23/24 08/24/24 16:24 20:02 05:56 WBC 5.4 RBC 3.68 L Hgb 10.8 L Hct 33.5 L MCV 91.0 MCH 29.3 MCHC 32.2 RDW 14.6 H Plt Count 206 MPV 9.0 Immature Gran % (Auto) 0.6 H Neut % (Auto) 59.7 Lymph % (Auto) 31.6 [place] % (Auto) 5.7 Eos % (Auto) 1.8 Baso % (Auto) 0.6 Lymph # (Auto) 1.72 [place] # (Auto) 0.3 Eos # (Auto) 0.1 Baso # (Auto) 0.0 Abs Immat Gran (auto) 0.03 Absolute Neuts (auto) 3.3 Absolute Nucleated RBC 0.000 Nucleated RBC % 0.0 Sodium 141 Potassium 3.7 Chloride 105 Carbon Dioxide 26 Anion Gap 10 BUN < 2 L Creatinine 0.58 L Estim Creat Clear Calc 110 Estimated GFR > 60 Glucose 174 H POC Capillary Glucose 172 H 223 H Calcium 8.7 Total Bilirubin 0.4 AST 27 ALT 19 Alkaline Phosphatase 75 Total Protein 7.0 Albumin 4.2 Lipase
--- NOTE | 2024-08-24 07:10 | P.PNIM_ITS ---
Progress Note: A&P Assessment and Plan (1) Chronic pancreatitis: Code(s): K86.1 - Other chronic pancreatitis Status: Acute Assessment and Plan: - chronic, recently approved for Tryngolza to tx high TG - IVF: 9% NS 125ml/hr - trend lipase, currently: 92 - AST, ALT, total bilirubin. trend LFTs. - pain control with Dilaudid increased to q3hr - Metoclopramide prn for nausea - CT abd/pelvis: Hepatomegaly with steatosis. No CT evidence of pancreatitis. Inferior malrotation of the left kidney, unchanged - GI consulted, appreciate recs - Clear liquid diet, advance patient's diet as tolerated. - TG on 08/22 = 522, will repeat today - Repeat lipase wnl (2) Hypertriglyceridemia: Code(s): E78.1 - Pure hyperglyceridemia Status: Chronic Assessment and Plan: - chronic, recently approved for Tryngolza to tx high TG - T - No intervention needed at this time - Repeat TG 08/22 522 - Recheck today (3) Abdominal pain: Qualifiers: Abdominal location: right upper quadrant Qualified Code(s): R10.11 - Right upper quadrant pain Code(s): R10.9 - Unspecified abdominal pain Status: Acute Assessment and Plan: * Chronic abdominal pain likely secondary to Hypertriglyceridemia and Chronic Pancreatitis * Lipase wnl, TG 364 * Continue IVFs and PRN pain control * Diet as tolerated * GI consulted, appreciate recommendations * Improving today (4) Hypothyroidism: Qualifiers: 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 Qualified Code(s): E03.8 - Other specified hypothyroidism; E06.3 - Autoimmune thyroiditis Code(s): E03.9 - Hypothyroidism, unspecified Status: Acute Assessment and Plan: Continue levothyroxine (5) Type 2 diabetes mellitus: Qualifiers: Diabetes mellitus complication status: without complication Diabetes mellitus long-term insulin use: with 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 Qualified Code(s): E11.9 - Type 2 diabetes mellitus without complications; Z79.4 - [facility] (current) use of insulin Code(s): E11.9 - Type 2 diabetes mellitus without complications Status: Chronic Assessment and Plan: - hypoglycemia protocol - POC blood glucose ACHS - home medication - Metformin - correct regimen ordered - low dose TIDWM and HS - A1C pending (6) CAD (coronary artery disease): Code(s): I25.10 - Atherosclerotic heart disease of [place] coronary artery without angina pectoris Status: Acute Assessment and Plan: Continue Brilinta, metoprolol and aspirin Time Spent With Patient Time: Subjective Date/time seen: 08/24/24 07:10 Interval history: 48-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 08/24/2024 Patient sitting comfortably in bed at time of exam. Denies any chest pain, shortness a breath, vomiting. Still has continued nausea but is alleviated by Reglan. GI is still following, agree that pain is likely component of gastroparesis, as repeat lipase is still WNL. Will start weaning narcotic use to less frequent intervals. Will also add MiraLax 119g q.6hrs until bowel movement occurs. Discussed with patient, tentative plan for discharge tomorrow, patient is amenable to this. Review of Systems Review of Systems: 12 systems were reviewed and are negativ e except for as per HPI. Exam Narrative: General: well appearing, appears stated age. HEENT: normocephalic, atraumatic. Mucous membranes moist. EOMI, PERRLA Respiratory: clear to ascultation bilaterally. No rales/rhonic/wheezes. Bilateral ports without erythema Cardiovascular: Regular rate and rhythm, normal S1-S2 upon ascultation. No murmurs, rubs, or clicks. Abdomen: LUQ tenderness to palpation. Soft, round, no pulsatile masses, nondistended No rebound, no guarding. No CVA tenderness, no hepatosplenomegaly. Bowel sounds present to all four quadrants. No high pitch or tinkling sounds, resonant to percussion. Extremities: No cyanosis, clubbing, or edema present. Pulses are palpable 2/2. Active ROM to all four extremities. Neuro: Alert and orientated x 4. PERRLA. Skin: Warm, dry, and intact, without rash, erythema, or lesion. Psych: pleasant, cooperative, normal speech, normal affect, Objective Data Vital Signs Vital Signs: Vital Signs - 24 hr 08/23/24 08:00 08/23/24 09:20 08/23/24 14:00 Temperature 96.5 F L Pulse Rate 70 82 Respiratory Rate 18 Blood Pressure 109/78 Pulse Oximetry 94 Oxygen Delivery Room Air 08/23/24 20:00 08/23/24 21:28 08/24/24 05:40 Temperature 96.8 F L 96.5 F L Pulse Rate 72 74 Respiratory Rate 18 18 Blood Pressure 135/74 116/70 Pulse Oximetry 98 97 Oxygen Delivery Room Air Intake/Output Intake/Output: Intake & Output 08/21/24 08/22/24 08/23/24 08/24/24 23:59 23:59 23:59 23:59 Intake Total 4330 2717 3894.2 320 Balance 4330 2717 3894.2 320 Meds/Results Medications: Active Medications Generic Name Dose Route Start Last Admin Trade Name Freq PRN Reason Stop Dose Admin Acetaminophen 650 mg 08/18/24 01:23 Acetaminophen 325 Mg Tablet PO Q4H PRN Mild Pain (1-3) or Fever Hydrocodone Bitart/Acetaminophen 1 tab 08/18/24 03:03 08/23/24 19:28 Hydrocodone/Acetaminophen (*Crx) 10-325 Mg Tablet PO 1 tab Q6H PRN Administration Pain Rated 7-10 Al Hydrox/Mg Hydrox/Simethicone 30 ml 08/22/24 12:35 Mag Hydrox/Al Hydrox/Simeth 30 Ml Udc PO Q3HR PRN Indigestion Lipase/Protease/Amylase 6 cap 08/18/24 08:00 08/23/24 17:27 Lipase/Amylase/Protease 12,000 Units Cap PO 6 cap TIDWM RAPHAEL Administration Aspirin 81 mg 08/18/24 09:00 08/23/24 09:20 Aspirin 81 Mg Enteric Tablet PO 81 mg QAM RAPHAEL Administration Atorvastatin Calcium 80 mg 08/18/24 21:00 08/23/24 20:29 Atorvastatin 40 Mg Tablet PO 80 mg HS RAPHAEL Administration Bupropion HCl 150 mg 08/18/24 21:00 08/23/24 20:29 Bupropion Hcl Sr (12 Hr) 150 Mg Tab PO 150 mg HS RAPHAEL Administration Citalopram Hydrobromide 40 mg 08/18/24 09:00 08/23/24 09:20 Citalopram Hydrobromide 20 Mg Tablet PO 40 mg DAILY RAPHAEL Administration Dextrose 12.5 gm 08/18/24 02:57 Dextrose 50% 25 Gm/50 Ml Syringe IV PUSH PRN PRN Hypoglycemia Protocol Diphenhydramine HCl 25 mg 08/18/24 13:32 08/24/24 03:29 Diphenhydramine Hcl Inj 50 Mg/Ml Vial IV PUSH 25 mg Q4H PRN Administration Itching Glucose 15 gm 08/18/24 02:57 Glucose Oral Gel 15 Gm Of Glucse In 37.5 Gm Tube PO PRN PRN Hypoglycemia Protocol Hydromorphone HCl 1 mg 08/22/24 11:25 08/24/24 06:35 Hydromorphone Hcl Inj (*Crx) 2 Mg/Ml Vial IV PUSH 1 mg Q3H PRN Administration Pain Rated 7-10 Sodium Chloride 1,000 mls @ 125 mls/hr 08/18/24 01:25 08/23/24 23:33 Normal Saline Iv IV CONT 125 mls/hr .Q8H RAPHAEL Administration Dextrose 1,000 mls @ 100 mls/hr 08/18/24 02:57 Dextrose 5% 1,000 Ml IVPB PRN PRN Hypoglycemia Protocol Insulin Aspart 2 - 5 units 08/18/24 08:00 08/23/24 17:18 Insulin Aspart (*Bkc) 100 Units/Ml SUB-Q Not Given TIDWM RAPHAEL Protocol Insulin Aspart 1 - 2 units 08/18/24 21:00 08/23/24 20:39 Insulin Aspart (*Bkc) 100 Units/Ml SUB-Q 1 units HS RAPHAEL Administration Protocol Levothyroxine Sodium 200 mcg 08/18/24 06:30 08/24/24 05:33 Levothyroxine Sodium 100 Mcg Tablet PO 200 mcg DAILY@0630 RAPHAEL Administration Lorazepam 1 mg 08/18/24 02:54 08/23/24 20:29 Lorazepam (*Crx) 1 Mg Tablet PO 1 mg QHS PRN Administration sleep Metoclopramide HCl 10 mg 08/22/24 14:00 08/24/24 05:35 Metoclopramide Hcl Inj 10 Mg/2 Ml Vial IV PUSH 10 mg Q8HR RAPHAEL Administration Metoprolol Succinate 12.5 mg 08/18/24 09:00 08/23/24 09:20 Metoprolol Succinate Ext Rel 12.5 Mg Tabcr PO 12.5 mg DAILY RAPHAEL Administration Miscellaneous Information 0 each 08/18/24 00:01 08/19/24 05:34 Tryngolza Send To Pharmacy For Verification Once Brought In XX 09/17/24 00:00 Not Given CLARIFY RAPHAEL Non-Formulary Medication 1 unit 08/18/24 15:15 Tryngolza SUBDERMAL 09/17/24 15:14 ONCE RAPHAEL Ondansetron HCl 4 mg 08/18/24 01:23 08/23/24 19:28 Ondansetron Inj 4 Mg/2 Ml Vial IV PUSH 4 mg Q4H PRN Administration Nausea Polyethylene Glycol 17 gm 08/23/24 10:32 Polyethylene Glycol 3350 17 Gm Powd.Pack PO QAM PRN Constipation Polyethylene Glycol 119 gm 08/24/24 07:00 Polyethylene Glycol 3350 238 Gm Bottle PO 08/24/24 12:01 Q6HR RAPHAEL Ticagrelor 90 mg 08/18/24 09:00 08/23/24 20:29 Ticagrelor 90 Mg Tablet PO 90 mg Q12HR RAPHAEL Administration Trazodone HCl 200 mg 08/18/24 03:20 08/23/24 20:29 Trazodone Hcl 50 Mg Tablet PO 200 mg HS RAPHAEL Administration Radiology Results: ITS Impressions Abdomen/Pelvis CT 08/17/24 22:32 IMPRESSION: Hepatomegaly with steatosis. No CT evidence of pancreatitis. Inferior malrotation of the left kidney, with chronic mild pelviectasis and caliectasis, likely reflecting some degree of chronic UPJ obstruction, unchanged. Labs Labs: Laboratory Results - last 24 hr 08/23/24 08/23/24 08/23/24 05:28 08:15 11:33 WBC RBC Hgb Hct MCV MCH MCHC RDW Plt Count MPV Immature Gran % (Auto) Neut % (Auto) Lymph % (Auto) [place] % (Auto) Eos % (Auto) Baso % (Auto) Lymph # (Auto) [place] # (Auto) Eos # (Auto) Baso # (Auto) Abs Immat Gran (auto) Absolute Neuts (auto) Absolute Nucleated RBC Nucleated RBC % Sodium Potassium Chloride Carbon Dioxide Anion Gap BUN Creatinine Estim Creat Clear Calc Estimated GFR Glucose POC Capillary Glucose 145 H 142 H Calcium Total Bilirubin AST ALT Alkaline Phosphatase Total Protein Albumin Lipase 30 08/23/24 08/23/24 08/24/24 16:24 20:02 05:56 WBC 5.4 RBC 3.68 L Hgb 10.8 L Hct 33.5 L MCV 91.0 MCH 29.3 MCHC 32.2 RDW 14.6 H Plt Count 206 MPV 9.0 Immature Gran % (Auto) 0.6 H Neut % (Auto) 59.7 Lymph % (Auto) 31.6 [place] % (Auto) 5.7 Eos % (Auto) 1.8 Baso % (Auto) 0.6 Lymph # (Auto) 1.72 [place] # (Auto) 0.3 Eos # (Auto) 0.1 Baso # (Auto) 0.0 Abs Immat Gran (auto) 0.03 Absolute Neuts (auto) 3.3 Absolute Nucleated RBC 0.000 Nucleated RBC % 0.0 Sodium 141 Potassium 3.7 Chloride 105 Carbon Dioxide 26 Anion Gap 10 BUN < 2 L Creatinine 0.58 L Estim Creat Clear Calc 110 Estimated GFR > 60 Glucose 174 H POC Capillary Glucose 172 H 223 H Calcium 8.7 Total Bilirubin 0.4 AST 27 ALT 19 Alkaline Phosphatase 75 Total Protein 7.0 Albumin 4.2 Lipase Quality VTE Prophylaxis VTE prophylaxis: mechanical ordered and pharmacologic ordered
[2024-08-24] MEDS: SODIUM CHLORIDE 0.9% IV 1,000 ML 125 ML IV CONT ×3 (07:20→22:26)
[2024-08-24 07:59] LABS: Glucose Point of Care 163 mg/dl (65-105)
[2024-08-24] MEDS: polyethylene glycoL 3350 238 GM BOTTLE 119 GM PO ×2 (08:25→13:55)
[2024-08-24] MEDS: LIPASE/AMYLASE/PROTEASE 12,000 UNITS CAP 6 CAP PO ×3 (08:26→16:15)
[2024-08-24] MEDS: ASPIRIN 81 MG ENTERIC TABLET PO (08:27)
[2024-08-24] MEDS: TICAGRELOR 90 MG TABLET PO ×2 (08:27→20:26)
[2024-08-24] MEDS: CITALOPRAM HYDROBROMIDE 20 MG TABLET 40 MG PO (08:27)
[2024-08-24 08:28] VITALS: PULSE 76
[2024-08-24] MEDS: METOPROLOL SUCCINATE EXT REL 12.5 MG TABCR PO (08:28)
[2024-08-24] MEDS: ONDANSETRON INJ 4 MG/2 ML VIAL IV PUSH ×3 (09:47→20:28)
[2024-08-24 11:06] LABS: Triglycerides 428 mg/dL (<150)
[2024-08-24 11:51] LABS: Glucose Point of Care 161 mg/dl (65-105)
[2024-08-24 14:00] VITALS: BP 120/61; PULSE 72; RESP 16; TEMP 36.8; O2SAT 98
[2024-08-24] MEDS: HEPARIN SODIUM, PORCINE 10,000 UNITS/10 ML VIAL 5000 UNITS IV PUSH (14:30)
--- NOTE | 2024-08-24 15:14 | PC.NURSE ---
08/24/2024 [facility] [address] 1975 Procedure: PFP catheter maintenance ACCESS: PFP x [address] Kaminski Arrived to pt. rom, pt. is currently admitted for GI issues/constipation & abdominal pain. Pt. denies and disease related symptoms. VSS. Triglycerides approximately 436. Chart,labs,notes,meds,orders reviewed & today's procedure confirmed with Daniel Mills RN.Timeout completed. Bilateral PFP's accessed per protocol, tolerated well. Both PFP flush well with good blood return. PFP needles removed & bilateral PFP sites c/d/i. Gauze dressings applied with strong steady pressure. Pt. denies any complaints. Report given to Daniel Gallardo BSN RN
[2024-08-24 16:47] LABS: Glucose Point of Care 140 mg/dl (65-105)
[2024-08-24] MEDS: LORazepam (*CRX) 1 MG TABLET PO (20:26)
[2024-08-24] MEDS: HYDROcodone/acetaminophen (*CRX) 10-325 MG TABLET 1 TAB PO (20:26)
[2024-08-24] MEDS: buPROPion HCL SR (12 HR) 150 MG TAB PO (20:26)
[2024-08-24] MEDS: ATORVASTATIN 40 MG TABLET 80 MG PO (20:26)
[2024-08-24] MEDS: traZODone HCL 50 MG TABLET 200 MG PO (20:27)
[2024-08-24] MEDS: INSULIN ASPART (*BKC) 100 UNITS/ML SUB-Q (20:27)
[2024-08-24 20:58] VITALS: BP 108/57; PULSE 80; RESP 18; TEMP 36.2; O2SAT 100
[2024-08-24 20:58] LABS: Glucose Point of Care 228 mg/dl (65-105)
[2024-08-25] MEDS: diphenhydrAMINE HCl INJ 50 MG/ML VIAL 25 MG IV PUSH ×2 (03:34→12:52)
[2024-08-25] MEDS: ONDANSETRON INJ 4 MG/2 ML VIAL IV PUSH ×2 (03:34→12:51)
[2024-08-25] MEDS: HYDROcodone/acetaminophen (*CRX) 10-325 MG TABLET 1 TAB PO (03:34)
[2024-08-25] MEDS: HYDROmorphone HCL INJ (*CRX) 2 MG/ML VIAL 1 MG IV PUSH ×2 (04:50→12:51)
[2024-08-25] MEDS: METOCLOPRAMIDE HCL INJ 10 MG/2 ML VIAL IV PUSH (05:39)
[2024-08-25] MEDS: LEVOTHYROXINE SODIUM 100 MCG TABLET 200 MCG PO (05:39)
[2024-08-25] MEDS: SODIUM CHLORIDE 0.9% IV 1,000 ML 125 ML IV CONT (05:41)
[2024-08-25 06:00] VITALS: BP 104/78; PULSE 84; RESP 18; TEMP 35.9; O2SAT 94
[2024-08-25 07:53] LABS: Glucose Point of Care 204 mg/dl (65-105)
--- NOTE | 2024-08-25 08:05 | P.PNIM_ITS ---
Progress Note: A&P Assessment and Plan (1) Chronic pancreatitis: Code(s): K86.1 - Other chronic pancreatitis Status: Acute Assessment and Plan: - chronic, recently approved for Tryngolza to tx high TG - IVF: 9% NS 125ml/hr - trend lipase, currently: 92 - AST, ALT, total bilirubin. trend LFTs. - pain control with Dilaudid increased to q3hr - Metoclopramide prn for nausea - CT abd/pelvis: Hepatomegaly with steatosis. No CT evidence of pancreatitis. Inferior malrotation of the left kidney, unchanged - GI consulted, appreciate recs - Clear liquid diet, advance patient's diet as tolerated. - TG on 08/22 = 522, will repeat today - Repeat lipase wnl (2) Hypertriglyceridemia: Code(s): E78.1 - Pure hyperglyceridemia Status: Chronic Assessment and Plan: - chronic, recently approved for Tryngolza to tx high TG - T - No intervention needed at this time - Repeat TG 08/22 522 - Recheck today (3) Abdominal pain: Qualifiers: Abdominal location: right upper quadrant Qualified Code(s): R10.11 - Right upper quadrant pain Code(s): R10.9 - Unspecified abdominal pain Status: Acute Assessment and Plan: * Chronic abdominal pain likely secondary to Hypertriglyceridemia and Chronic Pancreatitis * Lipase wnl, TG 364 * Continue IVFs and PRN pain control * Diet as tolerated * GI consulted, appreciate recommendations * Improving today (4) Hypothyroidism: Qualifiers: 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 Qualified Code(s): E03.8 - Other specified hypothyroidism; E06.3 - Autoimmune thyroiditis Code(s): E03.9 - Hypothyroidism, unspecified Status: Acute Assessment and Plan: Continue levothyroxine (5) Type 2 diabetes mellitus: Qualifiers: 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 insulin use: with termite control service representative use Diabetes mellitus complication status: without complication Qualified Code(s): E11.9 - Type 2 diabetes mellitus without complications; Z79.4 - [facility] (current) use of insulin Code(s): E11.9 - Type 2 diabetes mellitus without complications Status: Chronic Assessment and Plan: - hypoglycemia protocol - POC blood glucose ACHS - home medication - Metformin - correct regimen ordered - low dose TIDWM and HS - A1C pending (6) CAD (coronary artery disease): Code(s): I25.10 - Atherosclerotic heart disease of [place] coronary artery without angina pectoris Status: Acute Assessment and Plan: Continue Brilinta, metoprolol and aspirin Subjective Date/time seen: 08/25/24 08:05 Interval history: 48-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 08/25/2024 Patient sitting comfortably in bed at time of exam. Review of Systems Review of Systems: 12 systems were reviewed and are negativ e except for as per HPI. Exam Narrative: General: well appearing, appears stated age. HEENT: normocephalic, atraumatic. Mucous membranes moist. EOMI, PERRLA Respiratory: clear to ascultation bilaterally. No rales/rhonic/wheezes. Bilateral ports without erythema Cardiovascular: Regular rate and rhythm, normal S1-S2 upon ascultation. No murmurs, rubs, or clicks. Abdomen: LUQ tenderness to palpation. Soft, round, no pulsatile masses, nondistended No rebound, no guarding. No CVA tenderness, no hepatosplenomegaly. Bowel sounds present to all four quadrants. No high pitch or tinkling sounds, resonant to percussion. Extremities: No cyanosis, clubbing, or edema present. Pulses are palpable 2/2. Active ROM to all four extremities. Neuro: Alert and orientated x 4. PERRLA. Skin: Warm, dry, and intact, without rash, erythema, or lesion. Psych: pleasant, cooperative, normal speech, normal affect, Objective Data Vital Signs Vital Signs: Vital Signs - 24 hr 08/24/24 08:28 08/24/24 14:00 08/24/24 20:00 Temperature 98.2 F Pulse Rate 76 72 Respiratory Rate 16 Blood Pressure 120/61 Pulse Oximetry 98 Oxygen Delivery Room Air 08/24/24 20:58 08/25/24 06:00 Temperature 97.2 F L 96.6 F L Pulse Rate 80 84 Respiratory Rate 18 18 Blood Pressure 108/57 L 104/78 Pulse Oximetry 100 94 Oxygen Delivery Intake/Output Intake/Output: Intake & Output 08/22/24 08/23/24 08/24/24 08/25/24 23:59 23:59 23:59 23:59 Intake Total 2717 3894.2 3235.8 1146.3 Balance 2717 3894.2 3235.8 1146.3 Meds/Results Medications: Active Medications Generic Name Dose Route Start Last Admin Trade Name Freq PRN Reason Stop Dose Admin Acetaminophen 650 mg 08/18/24 01:23 Acetaminophen 325 Mg Tablet PO Q4H PRN Mild Pain (1-3) or Fever Hydrocodone Bitart/Acetaminophen 1 tab 08/18/24 03:03 08/25/24 03:34 Hydrocodone/Acetaminophen (*Crx) 10-325 Mg Tablet PO 1 tab Q6H PRN Administration Pain Rated 7-10 Al Hydrox/Mg Hydrox/Simethicone 30 ml 08/22/24 12:35 Mag Hydrox/Al Hydrox/Simeth 30 Ml Udc PO Q3HR PRN Indigestion Lipase/Protease/Amylase 6 cap 08/18/24 08:00 08/24/24 16:15 Lipase/Amylase/Protease 12,000 Units Cap PO 6 cap TIDWM RAPHAEL Administration Aspirin 81 mg 08/18/24 09:00 08/24/24 08:27 Aspirin 81 Mg Enteric Tablet PO 81 mg QAM RAPHAEL Administration Atorvastatin Calcium 80 mg 08/18/24 21:00 08/24/24 20:26 Atorvastatin 40 Mg Tablet PO 80 mg HS RAPHAEL Administration Bupropion HCl 150 mg 08/18/24 21:00 08/24/24 20:26 Bupropion Hcl Sr (12 Hr) 150 Mg Tab PO 150 mg HS RAPHAEL Administration Citalopram Hydrobromide 40 mg 08/18/24 09:00 08/24/24 08:27 Citalopram Hydrobromide 20 Mg Tablet PO 40 mg DAILY RAPHAEL Administration Dextrose 12.5 gm 08/18/24 02:57 Dextrose 50% 25 Gm/50 Ml Syringe IV PUSH PRN PRN Hypoglycemia Protocol Diphenhydramine HCl 25 mg 08/18/24 13:32 08/25/24 03:34 Diphenhydramine Hcl Inj 50 Mg/Ml Vial IV PUSH 25 mg Q4H PRN Administration Itching Glucose 15 gm 08/18/24 02:57 Glucose Oral Gel 15 Gm Of Glucse In 37.5 Gm Tube PO PRN PRN Hypoglycemia Protocol Hydromorphone HCl 1 mg 08/24/24 10:01 08/25/24 04:50 Hydromorphone Hcl Inj (*Crx) 2 Mg/Ml Vial IV PUSH 1 mg Q6HR PRN Administration Pain Rated 7-10 Sodium Chloride 1,000 mls @ 125 mls/hr 08/18/24 01:25 08/25/24 05:41 Normal Saline Iv IV CONT 125 mls/hr .Q8H RAPHAEL Administration Dextrose 1,000 mls @ 100 mls/hr 08/18/24 02:57 Dextrose 5% 1,000 Ml IVPB PRN PRN Hypoglycemia Protocol Insulin Aspart 2 - 5 units 08/18/24 08:00 08/24/24 18:57 Insulin Aspart (*Bkc) 100 Units/Ml SUB-Q Not Given TIDWM RAPHAEL Protocol Insulin Aspart 1 - 2 units 08/18/24 21:00 08/24/24 20:27 Insulin Aspart (*Bkc) 100 Units/Ml SUB-Q 1 units HS RAPHAEL Administration Protocol Levothyroxine Sodium 200 mcg 08/18/24 06:30 08/25/24 05:39 Levothyroxine Sodium 100 Mcg Tablet PO 200 mcg DAILY@0630 RAPHAEL Administration Lorazepam 1 mg 08/18/24 02:54 08/24/24 20:26 Lorazepam (*Crx) 1 Mg Tablet PO 1 mg QHS PRN Administration sleep Metoclopramide HCl 10 mg 08/22/24 14:00 08/25/24 05:39 Metoclopramide Hcl Inj 10 Mg/2 Ml Vial IV PUSH 10 mg Q8HR RAPHAEL Administration Metoprolol Succinate 12.5 mg 08/18/24 09:00 08/24/24 08:28 Metoprolol Succinate Ext Rel 12.5 Mg Tabcr PO 12.5 mg DAILY RAPHAEL Administration Miscellaneous Information 0 each 08/18/24 00:01 08/19/24 05:34 Tryngolza Send To Pharmacy For Verification Once Brought In XX 09/17/24 00:00 Not Given CLARIFY RAPHAEL Non-Formulary Medication 1 unit 08/18/24 15:15 Tryngolza SUBDERMAL 09/17/24 15:14 ONCE RAPHAEL Ondansetron HCl 4 mg 08/18/24 01:23 08/25/24 03:34 Ondansetron Inj 4 Mg/2 Ml Vial IV PUSH 4 mg Q4H PRN Administration Nausea Polyethylene Glycol 17 gm 08/23/24 10:32 Polyethylene Glycol 3350 17 Gm Powd.Pack PO QAM PRN Constipation Ticagrelor 90 mg 08/18/24 09:00 08/24/24 20:26 Ticagrelor 90 Mg Tablet PO 90 mg Q12HR RAPHAEL Administration Trazodone HCl 200 mg 08/18/24 03:20 08/24/24 20:27 Trazodone Hcl 50 Mg Tablet PO 200 mg HS RAPHAEL Administration Radiology Results: ITS Impressions Abdomen/Pelvis CT 08/17/24 22:32 IMPRESSION: Hepatomegaly with steatosis. No CT evidence of pancreatitis. Inferior malrotation of the left kidney, with chronic mild pelviectasis and caliectasis, likely reflecting some degree of chronic UPJ obstruction, unchanged. Labs Labs: Laboratory Results - last 24 hr 08/24/24 08/24/24 08/24/24 05:12 11:49 16:42 POC Capillary Glucose 161 H 140 H Triglycerides 428 H 08/24/24 08/25/24 20:11 07:47 POC Capillary Glucose 228 H 204 H Triglycerides Quality VTE Prophylaxis VTE prophylaxis: mechanical ordered and pharmacologic ordered
[2024-08-25 08:34] LABS: Basophils Percent Auto 0.5 % (0.2-1.2); Eosinophils Absolute Auto 0.1 K/mm3 (0-0.3); Eosinophils Percent Auto 1.2 % (0-4.4); Hemoglobin 10.5 g/dL (12.0-15.0); Immature Granulocyte Absolute 0.04 K/mm3 (0.00-0.031); Immature Granulocyte Percent A 0.7 % (0-0.5); Lymphocytes Absolute Auto 1.62 K/mm3 (0.9-3.2); Lymphocytes Percent Auto 27.6 % (18.3-44.2); Mean Corpuscular HGB Conc 31.8 g/dl (32-36); Mean Corpuscular Hemoglobin 29.3 pg (26-34); Mean Corpuscular Volume 92.2 fl (80-100); Mean Platelet Volume 9.2 fl (7.4-10.4); Monocytes Absolute Auto 0.4 K/mm3 (0.1-0.6); Monocytes Percent Auto 6.1 % (2.6-8.5); Neutrophils Absolute Auto 3.7 K/mm3 (1.3-6.7); Neutrophils Percent Auto 63.9 % (45.5-73.1); Platelet Count Result 214 k/mm3 (150-375); Red Blood Count 3.58 M/mm3 (4.2-5.4); Red Cell Distribution Width 14.7 % (11.5-14.5); White Blood Count 5.9 K/mm3 (4.5-10.0)
[2024-08-25 08:43] LABS: Alanine Aminotransferase 22 U/L (6-35); Albumin Level 3.9 g/dL (3.5-5.1); Alkaline Phosphatase 93 U/L (38-126); Anion Gap 9 mmol/L (4-12); Aspartate Amino Transferase 26 U/L (14-36); Bilirubin,Total 0.4 mg/dL (0.2-1.3); Blood Urea Nitrogen 2 mg/dL (7-17); Calcium 8.1 mg/dL (8.4-10.2); Carbon Dioxide 23 mmol/L (22-30); Chloride 107 mmol/L (98-107); Estimated CRCL calculation 120 ml/min; Estimated Glomerular Filt Rate > 60; Glucose 201 mg/dL (65-110); Potassium 3.2 mmol/L (3.4-5.0); Sodium 139 mmol/L (137-145)
[2024-08-25 09:58] VITALS: PULSE 84
[2024-08-25] MEDS: METOPROLOL SUCCINATE EXT REL 12.5 MG TABCR PO (09:58)
[2024-08-25] MEDS: TICAGRELOR 90 MG TABLET PO (09:58)
[2024-08-25] MEDS: LIPASE/AMYLASE/PROTEASE 12,000 UNITS CAP 6 CAP PO (09:58)
[2024-08-25] MEDS: POTASSIUM CHLORIDE 20 MEQ ER TABLET PO (09:59)
[2024-08-25] MEDS: CITALOPRAM HYDROBROMIDE 20 MG TABLET 40 MG PO (09:59)
[2024-08-25] MEDS: ASPIRIN 81 MG ENTERIC TABLET PO (09:59)
--- NOTE | 2024-08-25 10:45 | P.DS_ITS ---
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 Qualified Code(s): E03.8 - Other specified hypothyroidism; E06.3 - Autoimmune thyroiditis Code(s): E03.9 - Hypothyroidism, unspecified Status: Acute (5) Type 2 diabetes mellitus: Qualifiers: Diabetes mellitus complication status: without complication Diabetes mellitus senior living insulin use: with senior living use Qualified Code(s): E11.9 - Type 2 diabetes mellitus without complications; Z79.4 - correction (current) use of insulin Code(s): E11.9 - Type 2 diabetes mellitus without complications Status: Chronic (6) CAD (coronary artery disease): Code(s): I25.10 - Atherosclerotic heart disease of [place] coronary artery without angina pectoris Status: Acute DS: Summary Hospital Course Reason for hospitalization: abdominal pain Hospital Course: Casandra Jones is a 48 year old female who has history of DM, episodes of recurring nausea vomiting and abdominal pain for which she has been admitted to hospital multiple times. She suffers with hyper triglyceridemia that has required plasmapheresis with chronic pancreatitis admitted to hospital several times, she is on creon.? Also CAD s/p stents x3 on brilinta. Last EGD 06/2023 normal. GES 06/2024 c/w gastroparesis. She was admitted few days ago with nausea and worsening abdominal pain, CT scan did not show pancreatitis. TG 700 but down to 360, normal liver enzymes. She was just approved to start using next week Tryngolza to treat high TG. Upon arrival to floor, triglycerides were 364, CT scan showed no evidence of acute pancreatitis but patient states that this feels like her typical pancreatitis pain. She endorsed nausea but no vomiting. Gastroenterology consulted, agree pain likely due to chronic pancreatitis and dysmotility disorder (gastroparesis). She was started on a liquid diet. Lipase and liver enzymes within normal limits. She was maintained on gentle IV fluid therapy and p.r.n. pain control. Patient was eventually able to wean to longer intervals of PI pain control and able to advance diet to solid foods. Patient's abdominal pain most likely attributed to significant constipation as throughout most of her visit she did not have bowel movement until 08/24 after MiraLax was initiated, which she had several episodes of diarrhea and expressed significant relief and abdominal pain. Narcotics were continued to be deescalated and patient's pain subsided to tolerable levels. Repeat triglycerides or again elevated but did not require plasmapheresis. On 08/25, patient endorsed significant pain relief and nausea control, and expressed interest in being discharged. Patient otherwise stable with stable blood work, vitals, and symptomatology. Patient will be instructed to follow-up with her PCP and GI doctor in the outpatient setting. Plan for discharge home at this time. Status at Discharge Functional status at discharge: independent ambulation Overall status at discharge: patient is back to baseline Time Spent with Patient Time attestation: Total time spent providing and/or coordinating discharge services: 45 Exam Narrative: General: well appearing, appears stated age. HEENT: normocephalic, atraumatic. Mucous membranes moist. EOMI, PERRLA Respiratory: clear to ascultation bilaterally. No rales/rhonic/wheezes. Bilateral ports without erythema Cardiovascular: Regular rate and rhythm, normal S1-S2 upon ascultation. No murmurs, rubs, or clicks. Abdomen: Mild generalized abdominal tenderness, improved. Soft, round, no pulsatile masses, nondistended No rebound, no guarding. No CVA tenderness, no hepatosplenomegaly. Bowel sounds present to all four quadrants. No high pitch or tinkling sounds, resonant to percussion. Extremities: No cyanosis, clubbing, or edema present. Pulses are palpable 2/2. Active ROM to all four extremities. Neuro: Alert and orientated x 4. PERRLA. Skin: Warm, dry, and intact, without rash, erythema, or lesion. Psych: pleasant, cooperative, normal speech, normal affect, DS: Data Data Completed and Pending Labs on day of discharge: Labs from last 24 hours 08/25/24 08/25/24 08/24/24 08:23 07:47 20:11 WBC 5.9 RBC 3.58 L Hgb 10.5 L Hct 33.0 L MCV 92.2 MCH 29.3 MCHC 31.8 L RDW 14.7 H Plt Count 214 MPV 9.2 Immature Gran % (Auto) 0.7 H Neut % (Auto) 63.9 Lymph % (Auto) 27.6 Miller % (Auto) 6.1 Eos % (Auto) 1.2 Baso % (Auto) 0.5 Lymph # (Auto) 1.62 Miller # (Auto) 0.4 Eos # (Auto) 0.1 Baso # (Auto) 0.0 Abs Immat Gran (auto) 0.04 H Absolute Neuts (auto) 3.7 Absolute Nucleated RBC 0.000 Nucleated RBC % 0.0 Sodium 139 Potassium 3.2 L Chloride 107 Carbon Dioxide 23 Anion Gap 9 BUN 2 L Creatinine 0.53 L Estim Creat Clear Calc 120 Estimated GFR > 60 Glucose 201 H POC Capillary Glucose 204 H 228 H Calcium 8.1 L Total Bilirubin 0.4 AST 26 ALT 22 Alkaline Phosphatase 93 Total Protein 7.0 Albumin 3.9 Triglycerides 08/24/24 08/24/24 08/24/24 16:42 11:49 05:12 WBC RBC Hgb Hct MCV MCH MCHC RDW Plt Count MPV Immature Gran % (Auto) Neut % (Auto) Lymph % (Auto) Miller % (Auto) Eos % (Auto) Baso % (Auto) Lymph # (Auto) Miller # (Auto) Eos # (Auto) Baso # (Auto) Abs Immat Gran (auto) Absolute Neuts (auto) Absolute Nucleated RBC Nucleated RBC % Sodium Potassium Chloride Carbon Dioxide Anion Gap BUN Creatinine Estim Creat Clear Calc Estimated GFR Glucose POC Capillary Glucose 140 H 161 H Calcium Total Bilirubin AST ALT Alkaline Phosphatase Total Protein Albumin Triglycerides 428 H Discharge Plan Discharge Attending physician on discharge: Mike Thomas Consulting providers: Tomas Mullins Discharging Clinician: Mike Thomas Anticipated Discharge Date/Time: 08/25/24 10:35 Patient Disposition: Home Activity: as tolerated Diet: as tolerated Discharge Instructions: Discharge disposition: Stable Take medications as prescribed Monitor blood pressures Take caution while standing, rising, or moving Change positions slowly taking a break between each position change If you standing feel dizzy sit back down and take a break Encouraged to continue with yearly vaccinations Return to the emergency department if he developed sudden shortness of breath, chest pain, nausea, vomiting, upset stomach or intractable diarrhea Return to the emergency department if you develop fever greater than 101.5 Follow-up with the primary care physician within 1-2 weeks Thank you for [facility] for your healthcare needs Patient Instructions: Antibiotic Form Patient Language: Italian Stand Alone Forms: General Discharge Information Follow-up/Referrals: Jose Zuniga APRN [Primary Care Provider] - Tomas Mullins MD [Physician] - Discharge Medications: Continued metformin 500 mg tablet 1,000 mg PO BID Qty: 180 1RF Rx Instructions: with morning & evening meals pantoprazole [Protonix] 40 mg tablet,delayed release (DR/EC) 40 mg PO BID Qty: 30 0RF levothyroxine 200 mcg tablet 200 mcg PO DAILY Creon 36,000-114,000- 180,000 unit capsule,delayed release(DR/EC) 2 cap PO TIDWMEAL Rx Instructions: Take 2 capsules with meals and 1 capsule with any snacks. aspirin 81 mg Tablet,Delayed Release (Dr/Ec) 81 mg PO QAM Qty: 30 0RF citalopram 40 mg tablet 40 mg PO DAILY Rx Instructions: TAKE 1 TABLET BY MOUTH EVERY DAY bupropion HCl 150 mg tablet sustained-release 12 hr 150 mg PO HS ondansetron 4 mg tablet,disintegrating 4 mg PO Q8H PRN (Reason: nausea and vomiting) Qty: 10 0RF insulin aspart U-100 [Novolog U-100 Insulin aspart] 100 unit/mL solution See Rx Instructions .ROUTE .COMPLEX Rx Instructions: infused via insulin pump metoprolol succinate 25 mg tablet extended release 24 hr 12.5 mg PO DAILY docusate sodium 100 mg Capsule 100 mg PO Q12HR PRN (Reason: constipation) Qty: 20 0RF metoclopramide HCl 5 mg tablet 5 mg PO TIDWM Brilinta 90 mg tablet 90 mg PO BID Qty: 180 0RF fenofibrate 160 mg tablet 160 mg PO DAILY Qty: 90 1RF trazodone 100 mg tablet 200 mg PO HS Qty: 180 1RF lorazepam 1 mg tablet 1 mg PO QHS PRN (Reason: sleep) Qty: 90 0RF atorvastatin 80 mg tablet 80 mg PO HS Qty: 90 3RF Date of admission: 08/20/24 14:11 Primary Care Provider: Jose Zuniga Admitting Provider: Bri Newsome Attending physician on admission: Mike Thomas Condition: Stable Quality VTE Prophylaxis VTE prophylaxis: mechanical ordered and pharmacologic ordered Hospitalist MIPS Heart Failure (Exclusion) Patient has history of Heart Transplant or Left Ventricular Assistive Device?: No IF YES, STOP HERE Heart Failure (Qualifier) Patient has current or prior documentation of LVEF less than or equal to 40%, or mod/servere depressed LVSF?: No IF NO, STOP HERE
[2024-08-25 11:50] LABS: Glucose Point of Care 182 mg/dl (65-105)
[2024-08-25 14:00] VITALS: BP 142/80; PULSE 74; RESP 18; TEMP 36.2; O2SAT 98
--- NOTE | 2024-08-25 14:55 | P.PNGI_ITS ---
Progress Note: A&P Assessment and Plan (1) Epigastric abdominal pain: Code(s): R10.13 - Epigastric pain Status: Acute Assessment and Plan: tolerating diet this time did not have acute pancreatitis probably multifactorial from dysmotility, constipation, she has underlying chronic pancreatitis, etc she is going home today and can follow-up office in few more weeks (2) Chronic pancreatitis: Onset Date: ~09/02/23 Qualifiers: Pancreatitis type: other Qualified Code(s): K86.1 - Other chronic pancreatitis Code(s): K86.1 - Other chronic pancreatitis Status: Chronic Assessment and Plan: lipase and CT scan without major findings but she had previous pancreatitis probably from DM and high TG level (3) Constipation: Code(s): K59.00 - Constipation, unspecified Status: Acute Assessment and Plan: on treatment miralax daily (4) GERD (gastroesophageal reflux disease): Qualifiers: Esophagitis presence: esophagitis presence not specified Qualified Code(s): K21.9 - Gastro-esophageal reflux disease without esophagitis Code(s): K21.9 - Gastro-esophageal reflux disease without esophagitis Status: Acute (5) Hypertriglyceridemia: Code(s): E78.1 - Pure hyperglyceridemia Status: Inactive Assessment and Plan: she has been approved to start specific treatment- tryngolza patient has required previously plasmapheresis (6) Gastroparesis: Code(s): K31.84 - Gastroparesis Status: Acute Assessment and Plan: antiemetics prn Subjective Date/time seen: 08/25/24 14:55 Interval history: pain has improved, she had BM overall better and probably home today Review of Systems Review of Systems: All systems reviewed & are unremarkable except as noted in HPI and below Exam Const: General: comfortable and no acute distress HENMT: Face/Nose/Sinus: Normal nares present Eyes: General: appearance normal, both eyes and all related structures Neck: Neck: no JVD Resp: Auscultation: clear to auscultation bilaterally Cardio: Rate: regular rate Rhythm: regular rhythm GI: Inspection: non-distended GI Palp: Yes Soft to palpation and No Guarding due to palpation present (GI) Auscultation: normal bowel sounds Skin: General skin exam: normal color Neuro: Speech: normal speech Motor exam (neuro): 5/5 motor strength present throughout Extrem: General: normal to inspection Psych: Mental Status: mental status grossly normal Objective Data Vital Signs Vital Signs: Vital Signs - 24 hr 08/24/24 20:00 08/24/24 20:58 08/25/24 06:00 Temperature 97.2 F L 96.6 F L Pulse Rate 80 84 Respiratory Rate 18 18 Blood Pressure 108/57 L 104/78 Pulse Oximetry 100 94 Oxygen Delivery Room Air 08/25/24 09:58 08/25/24 14:00 Temperature 97.1 F L Pulse Rate 84 74 Respiratory Rate 18 Blood Pressure 142/80 H Pulse Oximetry 98 Oxygen Delivery Intake/Output Intake/Output: Intake & Output 08/22/24 08/23/24 08/24/24 08/25/24 23:59 23:59 23:59 23:59 Intake Total 2717 3894.2 3235.8 1504.3 Balance 2717 3894.2 3235.8 1504.3 Meds/Results Medications: Active Medications Generic Name Dose Route Start Last Admin Trade Name Freq PRN Reason Stop Dose Admin Acetaminophen 650 mg 08/18/24 01:23 Acetaminophen 325 Mg Tablet PO Q4H PRN Mild Pain (1-3) or Fever Hydrocodone Bitart/Acetaminophen 1 tab 08/18/24 03:03 08/25/24 03:34 Hydrocodone/Acetaminophen (*Crx) 10-325 Mg Tablet PO 1 tab Q6H PRN Administration Pain Rated 7-10 Al Hydrox/Mg Hydrox/Simethicone 30 ml 08/22/24 12:35 Mag Hydrox/Al Hydrox/Simeth 30 Ml Udc PO Q3HR PRN Indigestion Lipase/Protease/Amylase 6 cap 08/18/24 08:00 08/25/24 09:58 Lipase/Amylase/Protease 12,000 Units Cap PO 6 cap TIDWM RAPHAEL Administration Aspirin 81 mg 08/18/24 09:00 08/25/24 09:59 Aspirin 81 Mg Enteric Tablet PO 81 mg QAM RAPHAEL Administration Atorvastatin Calcium 80 mg 08/18/24 21:00 08/24/24 20:26 Atorvastatin 40 Mg Tablet PO 80 mg HS RAPHAEL Administration Bupropion HCl 150 mg 08/18/24 21:00 08/24/24 20:26 Bupropion Hcl Sr (12 Hr) 150 Mg Tab PO 150 mg HS RAPHAEL Administration Citalopram Hydrobromide 40 mg 08/18/24 09:00 08/25/24 09:59 Citalopram Hydrobromide 20 Mg Tablet PO 40 mg DAILY RAPHAEL Administration Dextrose 12.5 gm 08/18/24 02:57 Dextrose 50% 25 Gm/50 Ml Syringe IV PUSH PRN PRN Hypoglycemia Protocol Diphenhydramine HCl 25 mg 08/18/24 13:32 08/25/24 12:52 Diphenhydramine Hcl Inj 50 Mg/Ml Vial IV PUSH 25 mg Q4H PRN Administration Itching Glucose 15 gm 08/18/24 02:57 Glucose Oral Gel 15 Gm Of Glucse In 37.5 Gm Tube PO PRN PRN Hypoglycemia Protocol Hydromorphone HCl 1 mg 08/24/24 10:01 08/25/24 12:51 Hydromorphone Hcl Inj (*Crx) 2 Mg/Ml Vial IV PUSH 1 mg Q6HR PRN Administration Pain Rated 7-10 Sodium Chloride 1,000 mls @ 125 mls/hr 08/18/24 01:25 08/25/24 05:41 Normal Saline Iv IV CONT 125 mls/hr .Q8H RAPHAEL Administration Dextrose 1,000 mls @ 100 mls/hr 08/18/24 02:57 Dextrose 5% 1,000 Ml IVPB PRN PRN Hypoglycemia Protocol Insulin Aspart 2 - 5 units 08/18/24 08:00 08/25/24 09:59 Insulin Aspart (*Bkc) 100 Units/Ml SUB-Q Not Given TIDWM RAPHAEL Protocol Insulin Aspart 1 - 2 units 08/18/24 21:00 08/24/24 20:27 Insulin Aspart (*Bkc) 100 Units/Ml SUB-Q 1 units HS RAPHAEL Administration Protocol Levothyroxine Sodium 200 mcg 08/18/24 06:30 08/25/24 05:39 Levothyroxine Sodium 100 Mcg Tablet PO 200 mcg DAILY@0630 RAPHAEL Administration Lorazepam 1 mg 08/18/24 02:54 08/24/24 20:26 Lorazepam (*Crx) 1 Mg Tablet PO 1 mg QHS PRN Administration sleep Metoclopramide HCl 10 mg 08/22/24 14:00 08/25/24 05:39 Metoclopramide Hcl Inj 10 Mg/2 Ml Vial IV PUSH 10 mg Q8HR RAPHAEL Administration Metoprolol Succinate 12.5 mg 08/18/24 09:00 08/25/24 09:58 Metoprolol Succinate Ext Rel 12.5 Mg Tabcr PO 12.5 mg DAILY RAPHAEL Administration Miscellaneous Information 0 each 08/18/24 00:01 08/19/24 05:34 Tryngolza Send To Pharmacy For Verification Once Brought In XX 09/17/24 00:00 Not Given CLARIFY RAPHAEL Non-Formulary Medication 1 unit 08/18/24 15:15 Tryngolza SUBDERMAL 09/17/24 15:14 ONCE RAPHAEL Ondansetron HCl 4 mg 08/18/24 01:23 08/25/24 12:51 Ondansetron Inj 4 Mg/2 Ml Vial IV PUSH 4 mg Q4H PRN Administration Nausea Polyethylene Glycol 17 gm 08/23/24 10:32 Polyethylene Glycol 3350 17 Gm Powd.Pack PO QAM PRN Constipation Ticagrelor 90 mg 08/18/24 09:00 08/25/24 09:58 Ticagrelor 90 Mg Tablet PO 90 mg Q12HR RAPHAEL Administration Trazodone HCl 200 mg 08/18/24 03:20 08/24/24 20:27 Trazodone Hcl 50 Mg Tablet PO 200 mg HS RAPHAEL Administration Radiology Results: ITS Impressions Abdomen/Pelvis CT 08/17/24 22:32 IMPRESSION: Hepatomegaly with steatosis. No CT evidence of pancreatitis. Inferior malrotation of the left kidney, with chronic mild pelviectasis and caliectasis, likely reflecting some degree of chronic UPJ obstruction, unchanged. Labs Labs: Laboratory Results - last 24 hr 08/24/24 08/24/24 08/25/24 16:42 20:11 07:47 WBC RBC Hgb Hct MCV MCH MCHC RDW Plt Count MPV Immature Gran % (Auto) Neut % (Auto) Lymph % (Auto) [place] % (Auto) Eos % (Auto) Baso % (Auto) Lymph # (Auto) [place] # (Auto) Eos # (Auto) Baso # (Auto) Abs Immat Gran (auto) Absolute Neuts (auto) Absolute Nucleated RBC Nucleated RBC % Sodium Potassium Chloride Carbon Dioxide Anion Gap BUN Creatinine Estim Creat Clear Calc Estimated GFR Glucose POC Capillary Glucose 140 H 228 H 204 H Calcium Total Bilirubin AST ALT Alkaline Phosphatase Total Protein Albumin 08/25/24 08/25/24 08:23 11:45 WBC 5.9 RBC 3.58 L Hgb 10.5 L Hct 33.0 L MCV 92.2 MCH 29.3 MCHC 31.8 L RDW 14.7 H Plt Count 214 MPV 9.2 Immature Gran % (Auto) 0.7 H Neut % (Auto) 63.9 Lymph % (Auto) 27.6 [place] % (Auto) 6.1 Eos % (Auto) 1.2 Baso % (Auto) 0.5 Lymph # (Auto) 1.62 [place] # (Auto) 0.4 Eos # (Auto) 0.1 Baso # (Auto) 0.0 Abs Immat Gran (auto) 0.04 H Absolute Neuts (auto) 3.7 Absolute Nucleated RBC 0.000 Nucleated RBC % 0.0 Sodium 139 Potassium 3.2 L Chloride 107 Carbon Dioxide 23 Anion Gap 9 BUN 2 L Creatinine 0.53 L Estim Creat Clear Calc 120 Estimated GFR > 60 Glucose 201 H POC Capillary Glucose 182 H Calcium 8.1 L Total Bilirubin 0.4 AST 26 ALT 22 Alkaline Phosphatase 93 Total Protein 7.0 Albumin 3.9
== END 2024-08-25 16:50 | disposition home or self-care (01) | DRG 74 ==
LOC: ANHED 08-18 01:02 → ANH3MEDSUR 08-18 01:22
PROVIDERS: Registered Nurse; Admitting Provider General Practice; Emergency Provider Emergency Medicine; PCP Nurse Practitioner; Visit Provider Physician Assistant
DX: E11.43 Type 2 diabetes mellitus with diabetic autonomic (poly)neuropathy (principal); K86.1 Other chronic pancreatitis; K31.84 Gastroparesis; E78.1 Pure hyperglyceridemia; E78.3 Hyperchylomicronemia; K59.03 Drug induced constipation; T45.0X5A Adverse effect of antiallergic and antiemetic drugs, initial encounter; T40.605A Adverse effect of unspecified narcotics, initial encounter; I25.10 Atherosclerotic heart disease of native coronary artery without angina pectoris; E03.9 Hypothyroidism, unspecified; E78.6 Lipoprotein deficiency; F17.210 Nicotine dependence, cigarettes, uncomplicated; Z79.4 Long term (current) use of insulin; Z90.49 Acquired absence of other specified parts of digestive tract
CPT/HCPCS: 36415; 74177; 80053; 80061; 81003; 82948; 83036; 83690; 83735; 84439; 84443; 84478; 84484; 85025; 85027; 85610; 85730; 93005; 96361; 96374; 96375; 96376; 99285; A9270; G0378; J1171; J1200; J1644; J1815; J2405; J2470; J2765; J7030; J7040; Q9967

== ENCOUNTER 2024-09-21 19:57 | Inpatient (IN) | payer MEDICARE, SELFPAY ==
--- NOTE | ~2024-09-21 | CT_ITS ---
CT of the Abdomen and Pelvis: Indication: Abdominal pain Technique: 2.5 mm axial scans were obtained through the abdomen and pelvis following intravenous adm inistration of 100 cc of Omnipaque 350. Dose reduction technique was used on this scan by utilizing a utomated exposure control and iterative reconstruction technique. The dose-length product (DLP) was 8 47.71 mGy-cm. COMPARISON: 08/17/2024 Findings: Scans through the lung bases are unremarkable. There is diffuse hepatic steatosis. The spleen, pancreas, gallbladder, adrenals and kidneys are withi n normal limits. There are atherosclerotic calcifications of the aorta. No lymphadenopathy. Focal luminal narrowing and wall thickening at the ascending colon (coronal image 37) is felt to be m ost likely related to peristalsis. No other distinct bowel abnormality evident. Images through the pelvis were performed. Urinary bladder unremarkable. No pelvic mass seen. No ascit es. Impression: Area of focal wall thickening and luminal narrowing at the ascending colon is felt to be most likely related to peristalsis. Focal neoplastic lesion would be a potential alternative consideration. Corre late clinically. Consider colonoscopy for further evaluation. No distinct evidence for bowel obstruct ion. Diffuse hepatic steatosis. Reviewed, dictated and finalized at location M. Impression: Area of focal wall thickening and luminal narrowing at the ascending colon is f elt to be most likely related to peristalsis. Focal neoplastic lesion would be a potential alternative consideration. Correlate clinically. Consider colonosco py for further evaluation. No distinct evidence for bowel obstruction. Diffuse hepatic steatosis.
--- OUTSIDE RECORDS SUMMARY | 2024-09-21 19:59 | XMS_ITS | Encounter Summary ---
Author Organization [facility] Address [address] [place] [address] Care Team Providers Care Administrative Services Coordinator Name Role Phone Guerrero Middleton PA-C Primary Care Provide r Encounter Details Date Type Department Care Team (Late st Contact Info) Description 10/13/2021 Telephone [facility] [address] [place] [address] Phoenix Riddle MD [address] 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 Gender Identity Not on file [...] Care Team (Late st Contact Info) Description 01/18/2025 3:00 PM CDT Office Visit [facility] Heart and Vascular - [address] [place] [address] Marlys Mayer MD [address] [place] [address] documented as of this encounter Visit Diagnoses Not on filedocumented in this encounter Additional Health Concerns Infection Onset Date Last Indicated Resolved Time R/O GI Pathogen 09/19/2023 09/19/2023 09/21/2023 7 :33 AM CDT documented as of this encounter Care Teams Administrative Services Coordinator Relationship Specialty Start Date End Date Guerrero Middleton PA-C PCP - General Physician Stand Grinder 02/13/18 documented as of this encounter
--- OUTSIDE RECORDS SUMMARY | 2024-09-21 19:59 | XMS_ITS | Referral Summary ---
Author Organization [facility] Address [address] [place] [address] Care Team Providers Care It Risk Analyst Name Role Phone Mauri Jaime MD Primary Care Provider [phone] Guerrero Middleton PA Unavailable [phone] Allergies Active Allergy Reactions Criticality Noted Date [...] tablet TAKE 1 TABLET BY MOUTH EVERY MARKETING OPERATIONS ANALYST 022 Active fenofibrate (TRIGLIDE) 160 mg tablet [...] on file Legal Sex Female 5:05 AM ICT SUPPORT AND TEST ENGINEERS Gender Identity Not on file Sexual Orientation Not on file Last Filed Vital Signs Vital Sign Reading Time Taken Comments Blood Pressure 101/62 06/05/2023 11:38 AM ICT SUPPORT AND TEST ENGINEERS Pulse 76 06/05/2023 11:38 AM ICT SUPPORT AND TEST ENGINEERS Temperature 36.4 C (97.5 F) 06/05/2023 10:35 AM ICT SUPPORT AND TEST ENGINEERS Respiratory Rate 22 06/05/2023 11:38 AM ICT SUPPORT AND TEST ENGINEERS Oxygen Saturation 94% 06/05/2023 11:38 AM ICT SUPPORT AND TEST ENGINEERS Inhaled Oxygen Concentration - - Weight 81.6 kg (180 lb) 06/05/2023 8:58 AM ICT SUPPORT AND TEST ENGINEERS Height 165.1 cm (5' 5) 06/05/2023 8:58 AM ICT SUPPORT AND TEST ENGINEERS Body Mass Index 29.95 06/05/2023 8:58 AM ICT SUPPORT AND TEST ENGINEERS Plan of Treatment Not on file Insurance [facility] [employer] [facility] [employer] Care Teams It Risk Analyst Relationship Specialty Start Date End Date Mauri Jaime MD [address] [place] [address] PCP - General Internal Medicine 05/28/23 Guerrero Middleton PA [address] [place] [address] 05/28/23
--- OUTSIDE RECORDS SUMMARY | 2024-09-21 19:59 | XMS_ITS | Encounter Summary ---
Author Organization [facility] Address [address] [place] [address] Care Team Providers Care Statement Clerk Name Role Phone Guerrero Middleton PA-C Primary Care Provide r Encounter Details Date Type Department Care Team (Late st Contact Info) Description 12/08/2021 Telephone 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 Gender Identity Not on file Sexual Orientation Not on file Occupation Industry Job Start Date Job End Date Not on file Not on file Not on file Not on file documented as of this encounter Plan of Treatment Upcoming Encounters Date Type Department Care Team (Late st Contact Info) Description 01/18/2025 3:00 PM CDT Office Visit [facility] [address] [place] [address] Marlys Mayer MD [address] [place] [address] documented as of this encounter Visit Diagnoses Not on filedocumented in this encounter Additional Health Concerns Infection Onset Date Last Indicated Resolved Time R/O GI Pathogen 09/19/2023 09/19/2023 09/21/2023 7 :33 AM CDT documented as of this encounter Care Teams Statement Clerk Relationship Specialty Start Date End Date Guerrero Middleton PA-C PCP - General Physician Road Consultant 02/13/18 documented as of this encounter
--- OUTSIDE RECORDS SUMMARY | 2024-09-21 19:59 | XMS_ITS | Encounter Summary ---
Author Organization [facility] Address 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 Gender Identity Not on file Sexual Orientation Not on file Occupation Industry Job Start Date Job End Date Not on file Not on file Not on file Not on file documented as of this encounter Plan of Treatment Upcoming Encounters Date Type Department Care Team (Late st Contact Info) Description 01/18/2025 3:00 PM CDT Office Visit [facility] [address] [place] [address] Marlys Mayer MD [address] [place] [address] documented as of this encounter Visit Diagnoses Not on filedocumented in this encounter Additional Health Concerns Infection Onset Date Last Indicated Resolved Time R/O GI Pathogen 09/19/2023 09/19/2023 09/21/2023 7 :33 AM CDT documented as of this encounter Care Teams Electrical And Radio Mechanic Relationship Specialty Start Date End Date Guerrero Middleton PA-C PCP - General Physician Advanced Practice Nurse Psychotherapist 02/13/18 documented as of this encounter
--- OUTSIDE RECORDS SUMMARY | 2024-09-21 19:59 | XMS_ITS | Encounter Summary ---
Author Organization [facility] Address 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 Gender Identity Not on file Sexual Orientation [...] Description 01/18/2025 3:00 PM CDT Office Visit [facility] [address] [place] [address] Marlys Mayer MD [address] [place] [address] documented as of this encounter Visit Diagnoses Not on filedocumented in this encounter Additional Health Concerns Infection Onset Date Last Indicated Resolved Time R/O GI Pathogen 09/19/2023 09/19/2023 09/21/2023 7 :33 AM CDT documented as of this encounter Care Teams Giving Officer Relationship Specialty Start Date End Date Guerrero Middleton PA-C PCP - General Physician Skiver Uppers Or Linings 02/13/18 documented as of this encounter
--- OUTSIDE RECORDS SUMMARY | 2024-09-21 19:59 | XMS_ITS | Encounter Summary ---
Author Organization [facility] Address 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 Gender Identity Not on file Sexual Orientation Not on file Occupation Industry Job Start Date Job End Date Not on file Not on file Not on file Not on file documented as of this encounter Plan of Treatment Upcoming Encounters Date Type Department Care Team (Late st Contact Info) Description 01/18/2025 3:00 PM CDT Office Visit [facility] Heart and Vascular - [facility] [address] [place] [address] Marlys Mayer MD [address] [place] [address] documented as of this encounter Visit Diagnoses Not on filedocumented in this encounter Additional Health Concerns Infection Onset Date Last Indicated Resolved Time R/O GI Pathogen 09/19/2023 09/19/2023 09/21/2023 7 :33 AM CDT documented as of this encounter Care Teams Hiv Prevention Specialist Relationship Specialty Start Date End Date Guerrero Middleton PA-C PCP - General Physician Cement Sprayer Helper 02/13/18 documented as of this encounter
--- OUTSIDE RECORDS SUMMARY | 2024-09-21 19:59 | XMS_ITS | Encounter Summary ---
Author Organization [facility] Address [address] [place] [address] Care Team Providers Care Roll Tester Name Role Phone Guerrero Middleton PA-C Primary Care Provide r Reason for Visit * Reason Onset Date Comments OTHER 11/21/2021 Encounter Details Date Type Department Care Team (Late st Contact Info) Description 11/21/2021 Telephone [facility] Oncology [address] [place] [address] Nicole Rosas MD [address] 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 Gender Identity Not on file Sexual Orientation Not on file Occupation Industry Job Start Date Job End Date Not on file Not on file Not on file Not on file documented as of this encounter Plan of Treatment Upcoming Encounters Date Type Department Care Team (Late st Contact Info) Description 01/18/2025 3:00 PM CDT Office Visit [facility] Heart and Vascular - [facility] [address] [place] [address] Marlys Mayer MD [address] [place] [address] documented as of this encounter Visit Diagnoses Not on filedocumented in this encounter Additional Health Concerns Infection Onset Date Last Indicated Resolved Time R/O GI Pathogen 09/19/2023 09/19/2023 09/21/2023 7 :33 AM CDT documented as of this encounter Care Teams Roll Tester Relationship Specialty Start Date End Date Guerrero Middleton PA-C PCP - General Physician Millwright Apprentice 02/13/18 documented as of this encounter
--- OUTSIDE RECORDS SUMMARY | 2024-09-21 19:59 | XMS_ITS | Encounter Summary ---
Author Organization [facility] Address [address] [place] [address] Care Team Providers Care Environmental Services Director Name Role Phone Guerrero Middleton PA-C Primary Care Provide r Encounter Details Date Type Department Care Team (Late st Contact Info) Description 01/04/2022 Telephone [facility] Donor Services 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 Gender Identity Not on file Sexual Orientation [...] Description 01/18/2025 3:00 PM CDT Office Visit [facility] Heart and Vascular - [address] [place] [address] Marlys Mayer MD [address] [place] [address] documented as of this encounter Visit Diagnoses Not on filedocumented in this encounter Additional Health Concerns Infection Onset Date Last Indicated Resolved Time R/O GI Pathogen 09/19/2023 09/19/2023 09/21/2023 7 :33 AM CDT documented as of this encounter Care Teams Environmental Services Director Relationship Specialty Start Date End Date Guerrero Middleton PA-C PCP - General Physician Content Management Consultant 02/13/18 documented as of this encounter
--- OUTSIDE RECORDS SUMMARY | 2024-09-21 19:59 | XMS_ITS | Encounter Summary ---
Author Organization [facility] Address 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 Gender Identity Not on file Sexual Orientation Not on file Occupation Industry Job Start Date Job End Date Not on file Not on file Not on file Not on file documented as of this encounter Plan of Treatment Upcoming Encounters Date Type Department Care Team (Late st Contact Info) Description 01/18/2025 3:00 PM CDT Office Visit [facility] [address] [place] [address] Marlys Mayer MD [address] [place] [address] documented as of this encounter Visit Diagnoses Not on filedocumented in this encounter Additional Health Concerns Infection Onset Date Last Indicated Resolved Time R/O GI Pathogen 09/19/2023 09/19/2023 09/21/2023 7 :33 AM CDT documented as of this encounter Care Teams Aircraft Structural Repair Mechanic Relationship Specialty Start Date End Date Guerrero Middleton PA-C PCP - General Physician Lining Machine Operator 02/13/18 documented as of this encounter
--- OUTSIDE RECORDS SUMMARY | 2024-09-21 19:59 | XMS_ITS | Clinical Summary ---
Author Organization [facility] Address [address] [place] [address] Care Team Providers Care Orange Picker Name Role Phone Mauri Jaime MD Primary Care Provider [phone] Guerrero Middleton PA Unavailable [phone] Allergies Active Allergy Reactions Criticality Noted Date [...] tablet TAKE 1 TABLET BY MOUTH EVERY ACUTE CARE CLINICAL NURSE SPECIALIST 022 Active fenofibrate (TRIGLIDE) 160 mg [...] on file Legal Sex Female 5:05 AM LEAD DATABASE ADMINISTRATOR Gender Identity Not on file Sexual Orientation Not on file Obstetrics History Last Filed Vital Signs Vital Sign Reading Time Taken Comments Blood Pressure 101/62 06/05/2023 11:38 AM LEAD DATABASE ADMINISTRATOR Pulse 76 06/05/2023 11:38 AM LEAD DATABASE ADMINISTRATOR Temperature 36.4 C (97.5 F) 06/05/2023 10:35 AM LEAD DATABASE ADMINISTRATOR Respiratory Rate 22 06/05/2023 11:38 AM LEAD DATABASE ADMINISTRATOR Oxygen Saturation 94% 06/05/2023 11:38 AM LEAD DATABASE ADMINISTRATOR Inhaled Oxygen Concentration - - Weight 81.6 kg (180 lb) 06/05/2023 8:58 AM LEAD DATABASE ADMINISTRATOR Height 165.1 cm (5' 5) 06/05/2023 8:58 AM LEAD DATABASE ADMINISTRATOR Body Mass Index 29.95 06/05/2023 8:58 AM LEAD DATABASE ADMINISTRATOR Plan of Treatment Health Maintenance Due Date [...] 03/04/2021, Additional history exists Insurance [facility] Care Teams Orange Picker Relationship Specialty Start Date End Date Mauri Jaime MD [address] [facility] [address] [place] [address] PCP - General Internal Medicine 05/28/23 Guerrero Middleton PA [address] [facility] [address] [place] [address] 05/28/23
--- OUTSIDE RECORDS SUMMARY | 2024-09-21 19:59 | XMS_ITS | Encounter Summary ---
Author Organization [facility] Address 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 Gender Identity Not on file Sexual Orientation Not on file Occupation Industry Job Start Date Job End Date Not on file Not on file Not on file Not on file documented as of this encounter Plan of Treatment Upcoming Encounters Date Type Department Care Team (Late st Contact Info) Description 01/18/2025 3:00 PM CDT Office Visit [facility] Heart and Vascular - [facility] [address] [place] [address] Marlys Mayer MD [address] [place] [address] documented as of this encounter Visit Diagnoses Not on filedocumented in this encounter Additional Health Concerns Infection Onset Date Last Indicated Resolved Time R/O GI Pathogen 09/19/2023 09/19/2023 09/21/2023 7 :33 AM CDT documented as of this encounter Care Teams Gas Regulator Repairer Relationship Specialty Start Date End Date Guerrero Middleton PA-C PCP - General Physician Bakery Team Leader 02/13/18 documented as of this encounter
[2024-09-21 20:00] VITALS: BP 116/67; PULSE 92; RESP 20; TEMP 36.8; O2SAT 98
--- OUTSIDE RECORDS SUMMARY | 2024-09-21 20:00 | XMS_ITS | Clinical Summary ---
Author Organization [facility] Address [address] [address] Phone Care Team Providers Care Supervisor Quality Control Name Role Phone Jose G Palemr MD Unavailable [phone] Guerrero Middleton Primary Care Provider Social History [...] to complete this topic Insurance Care Teams Supervisor Quality Control Relationship Specialty Start Date End Date Guerrero Middleton PAC [address] [place] [address] PCP - General Physician Software Development Analyst 12/10/16 Jose G Palmer MD Consulting Physician Gastroenterology 12/10/16
--- OUTSIDE RECORDS SUMMARY | 2024-09-21 20:00 | XMS_ITS | Clinical Summary ---
Author Organization [facility] Address [address] [place] [address] Phone Care Team Providers Care Operations Research Scientist Name Role Phone Guerrero Middleton PA-C [...] 48h post LHC 4 Active Blood-Glucose Sensor (ContentRealtimecom G7 Sensor) Device 4 Active buPROPion HCL [...] needed for nausea and vomiting 4 Active Tryngolza 80 mg/0.8 mL Auto-Injector 5 Active Active Problems Patient Care Coordination No te Formatting of this note migh t be different from the original. 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; Type 1 diabetes mellitus without complication ([facility]/HCC) 09/08/2024 External Device Data STL ABSTRACTION Provider, Abstract 09/08/2024 External Device Data STL ABSTRACTION Provider, Abstract 09/08/2024 External Device Data STL ABSTRACTION Provider, Abstract 08/11/2024 Abstract [facility] At [address] [place] [address] Marlys Mayer MD 06/30/2024 External Device Data [...] Cessation:Ready to Q uit: Yes; Counseling Given: No Comments:nicotine patch requested Alcohol Use Standard Drinks/Week [...] attend [facility] or jewish services? Never 08/21/2018 Do [...] No 09/18/2023 Food Insecurity Answer Date Recorded Patient needs follow up regardin 08/23/2024 Transportation Needs Answer Date Record ed Patient needs follow up regardin 08/23/2024 Housing Stability Answer Date Recorded Social/Environmental Concerns No concerns Utility Needs Answer Date Recorded Patient needs follow up regardin 08/23/2024 Comments No Sex and Gender Information Value Date Recorded Sex Assigned at Not on file Legal Sex Female 6:07 AM DRESS MARKER Gender Identity Not on file Sexual Orientation Not on file Occupation Industry Job Start Date Job End Date Not on file Not on file Not on file Not on file Last Filed Vital Signs Vital Sign Reading Time Taken Comments Blood Pressure 111/74 09/14/2024 2:53 PM CDT Pulse 110 09/14/2024 2:53 PM CDT Temperature 36.5 C (97.7 F) 11/29/2023 10:58 AM CDT Respiratory Rate 21 11/29/2023 6:15 PM CDT Oxygen Saturation 98% 09/14/2024 2:53 PM CDT Inhaled Oxygen Concentration - - Weight 86.6 kg (191 lb) 09/14/2024 2:53 PM CDT Height 165.1 cm (5' 5) 09/14/2024 2:53 PM CDT Body Mass Index 31.78 09/14/2024 2:53 PM CDT Plan of Treatment Upcoming Encounters Date Type Department Care Team (Late st Contact Info) Description 01/18/2025 3:00 PM CDT Office Visit [facility] - [place] [address] [place] [address] Marlys Mayer MD [address] [place] [address] Health Maintenance Due Date Last [...] 2023 0, 02/02/2019, 02/12/2018, Additional history exists COVID-19 Vaccine (2 - 2023-2 5 season) 2023 03/08/2023 DIABETES HBA1C Q 6 MONTHS 03/20/20242023, 08/24/2021, 07/12/2020, Additional history exists LDL CHOLESTEROL ANNUAL 09/18/2024 , 08/25/2021, 02/01/2019, Additional history exists Medical Devices Implanted Type Area Conditioning Machine Operator Device Identifier Shelf Expiration Date Model / Serial / Lot Cath Hemodlys Glidespath 23cm [id number] Implanted:Qty : 1 on 04/10/2018 by Kayla Sheffield MD Catheter CR BARD- [employer] [id number] 08/27/2019 [id number] / / [id number] Description:14.5fr x 23cm; R IJ Port-10/29/2018 Implanted:Qty : 2 on 10/29/2018 by Laverne Willoughby MD Explanted:Qty : 1 on 02/18/2019 by Michael Powell MD Port Right: Chest Wall CR BARD- ACCESS SYS 07/28/2019 / / [id number] Description:two 9.6fr fower flow apheresis ports placed by Dr. Willoughby Port- 0 Implanted:Qty : 1 on 05/11/2019 by Alfa Forrest MD Port Left: Chest Wall CR BARD- ACCESS SYS 08/26/2020 / / [id number] Stent Synergy Xd 4.0x12mm Evrlms Elut [id number] - [id number] Implanted:Qty : 1 on 11/29/2023 by Miguel Lewis MD at [facility] Stent N/A: Coronary [employer] [id number] 03/19/2024 [id number] / / [id number] Procedures Procedure Name Priority Date/Time Associated Diagnosis Comments LDL CHOLESTEROL, DIRECT Stat 09/19/2023 12:59 AM CDT HEMOGLOBIN A1C Routine 09/18/2023 10:18 PM CDT from Last 3 Months or Most Recently Relevant to Health Maintenance Results * LDL CHOLESTEROL, DIRECT (09/19/2023 12:59 AM CDT) LDL CHOLESTEROL, DIRECT 47 <100 mg/dL 09/19/2023 5:52 AM CDT [facility] Blood Venipuncture / Unknown 09/19/2023 12:59 AM CDT 09/19/2023 1:09 AM CDT [facility] - 09/19/2023 5:52 AM CDT LDL CHOLESTEROL [...] [place] MD CHEMISTRY ORDERABLES Fin al Result [facility]# [id number] [address] [facility] [place] [address] * (ABNORMAL) HEMOGLOBIN A1C (09/18/2023 10:18 PM CDT) HEMOGLOBIN A1C 9.7(H) <5.7 % 09/19/2023 10:59 AM CDT [facility] EST. AVG GLUCOSE, A1C 232 mg/dL 09/19/2023 10:59 AM CDT [facility] Blood Venipuncture / Unknown 09/18/2023 10:18 PM CDT 09/18/2023 10:26 PM CDT [facility] - 09/19/2023 10:59 AM CDT HGB A1C INTERPRETATION NORMAL: <5.7% PRE-DIABETES: 5.7 - 6.4% DIABETES: 6.5% OR GREATER Herlinda Mederos DO CHEMISTRY ORDERABLES Final Resul t [facility]# [id number] [place] [address] from Last 3 Months or Most Recently Relevant to Health Maintenance Insurance RX AETNA Medicare Part D RX MEDRANO PLANS (INTERNAL) [facility] RX MEDRANO PLANS (INTERNAL) [facility] [id number] Advance Directives For more information, please contact: [phone] * Full Code (Latest Code Status on [...] 12:11 AM 01/02/2021 4:26 PM Care Teams Operations Research Scientist Relationship Specialty Start Date End Date Guerrero Middleton PA-C PCP - General Physician Telemarketing Sales Representative 10/18/18
[2024-09-21 22:06] VITALS: BP 103/77; PULSE 100; RESP 18; O2SAT 97
[2024-09-21 22:16] VITALS: BP 100/65; O2SAT 95
--- OUTSIDE RECORDS SUMMARY | 2024-09-21 22:27 | XMS_ITS | Encounter Summary ---
Author Organization [facility] Address [address] [place] [address] Care Team Providers Care Cash Office Worker Name Role Phone Guerrero Middleton PA-C Primary Care Provide r Encounter Details Date Type Department Care Team (Late st Contact Info) Description 03/14/2022 Telephone [facility] Donor Services [facility] [address] [place] [address] Phoenix Riddle MD [address] [facility] [place] [address] Social History Tobacco Use Types [...] on file Legal Sex Female 6:07 AM LAWN MOWER Gender Identity Not on file Sexual Orientation Not on file Occupation Industry Job Start Date Job End Date Not on file Not on file Not on file Not on file documented as of this encounter Plan of Treatment Upcoming Encounters Date Type Department Care Team (Late st Contact Info) Description 01/18/2025 3:00 PM CDT Office Visit [facility] [address] [place] [address] Marlys Mayer MD [address] [place] [address] documented as of this encounter Visit Diagnoses Not on filedocumented in this encounter Additional Health Concerns Infection Onset Date Last Indicated Resolved Time R/O GI Pathogen 09/19/2023 09/19/2023 09/21/2023 7 :33 AM CDT documented as of this encounter Care Teams Cash Office Worker Relationship Specialty Start Date End Date Guerrero Middleton PA-C PCP - General Physician Pediatric Neuropsychologist 02/13/18 documented as of this encounter
--- OUTSIDE RECORDS SUMMARY | 2024-09-21 22:27 | XMS_ITS | Encounter Summary ---
Author Organization [facility] Address [address] [place] [address] Care Team Providers Care Soft Mud Molder Name Role Phone Guerrero Middleton PA-C Primary Care Provide r Encounter Details Date Type Department Care Team (Late st Contact Info) Description 12/08/2021 Telephone [facility] Donor Services [facility] [address] [place] [address] Phoenix Riddle MD [address] [facility] Department [place] [address] Social History Tobacco Use Types [...] on file Legal Sex Female 6:07 AM THERAPIST Gender Identity Not on file Sexual Orientation Not on file Occupation Industry Job Start Date Job End Date Not on file Not on file Not on file Not on file documented as of this encounter Plan of Treatment Upcoming Encounters Date Type Department Care Team (Late st Contact Info) Description 01/18/2025 3:00 PM CDT Office Visit [facility] [address] [place] [address] Marlys Mayer MD [address] [place] [address] documented as of this encounter Visit Diagnoses Not on filedocumented in this encounter Additional Health Concerns Infection Onset Date Last Indicated Resolved Time R/O GI Pathogen 09/19/2023 09/19/2023 09/21/2023 7 :33 AM CDT documented as of this encounter Care Teams Soft Mud Molder Relationship Specialty Start Date End Date Guerrero Middleton PA-C PCP - General Physician Res Counselor 02/13/18 documented as of this encounter
--- OUTSIDE RECORDS SUMMARY | 2024-09-21 22:27 | XMS_ITS | Encounter Summary ---
Author Organization [facility] Address [address] [place] [address] Care Team Providers Care Watch Dial Maker Name Role Phone Guerrero Middleton PA-C Primary Care Provide r Reason for Visit * Reason Onset Date Comments OTHER 11/21/2021 Encounter Details Date Type Department Care Team (Late st Contact Info) Description 11/21/2021 Telephone [facility] Oncology [address] [place] [address] Nicole Rosas MD [address] [place] [address] OTHER Social History Tobacco Use [...] on file Legal Sex Female 6:07 AM TURNSTILE COLLECTOR Gender Identity Not on file Sexual Orientation [...] [place] [facility] [address] [place] [address] Marlys Mayer MD [address] [place] [address] documented as of this encounter Visit Diagnoses Not on filedocumented in this encounter Additional Health Concerns Infection Onset Date Last Indicated Resolved Time R/O GI Pathogen 09/19/2023 09/19/2023 09/21/2023 7 :33 AM CDT documented as of this encounter Care Teams Watch Dial Maker Relationship Specialty Start Date End Date Guerrero Middleton PA-C PCP - General Physician Domestic Cleaner 02/13/18 documented as of this encounter
--- OUTSIDE RECORDS SUMMARY | 2024-09-21 22:27 | XMS_ITS | Encounter Summary ---
Author Organization [facility] Address [address] [place] [address] Care Team Providers Care Pre K Teacher Name Role Phone Guerrero Middleton PA-C Primary Care Provide r Encounter Details Date Type Department Care Team (Late st Contact Info) Description 10/13/2021 Telephone [facility] Oncology [address] [place] [address] Phoenix Riddle MD [address] [facility] [place] [address] Social History Tobacco Use Types [...] on file Legal Sex Female 6:07 AM FOREIGN LANGUAGE INSTRUCTOR Gender Identity Not on file Sexual [...] 01/18/2025 3:00 PM CDT Office Visit [facility] Heart and Vascular - [address] [place] [address] Marlys Mayer MD [address] [facility] [address] [place] [address] documented as of this encounter Visit Diagnoses Not on filedocumented in this encounter Additional Health Concerns Infection Onset Date Last Indicated Resolved Time R/O GI Pathogen 09/19/2023 09/19/2023 09/21/2023 7 :33 AM CDT documented as of this encounter Care Teams Pre K Teacher Relationship Specialty Start Date End Date Guerrero Middleton PA-C PCP - General Physician Campus Security Director 02/13/18 documented as of this encounter
--- OUTSIDE RECORDS SUMMARY | 2024-09-21 22:27 | XMS_ITS | Encounter Summary ---
Author Organization [facility] Address [address] [place] [address] Care Team Providers Care Reservations Manager Name Role Phone Guerrero Middleton PA-C Primary Care Provide r Reason for Visit * Reason Onset Date Comments petr rubin 09/13/2021 Encounter Details Date Type Department Care Team (Late st Contact Info) Description 09/13/2021 Telephone [facility] Donor Services [address] [address] Gloria Tristan, RN [facility] Social History Tobacco Use Types Packs/Day [...] on file Legal Sex Female 6:07 AM CORPORATE SALES TRAINER Gender Identity Not on file Sexual Orientation [...] Description 01/18/2025 3:00 PM CDT Office [facility] [address] [place] [address] Marlys Mayer MD [address] [place] [address] documented as of this encounter Visit Diagnoses Not on filedocumented in this encounter Additional Health Concerns Infection Onset Date Last Indicated Resolved Time R/O GI Pathogen 09/19/2023 09/19/2023 09/21/2023 7 :33 AM CDT documented as of this encounter Care Teams Reservations Manager Relationship Specialty Start Date End Date Guerrero Middleton PA-C PCP - General Physician String Studies Director 02/13/18 documented as of this encounter
--- OUTSIDE RECORDS SUMMARY | 2024-09-21 22:27 | XMS_ITS | Encounter Summary ---
Author Organization [facility] Address [address] [place] [address] Care Team Providers Care Cheese Wrapper Name Role Phone Guerrero Middleton PA-C Primary Care Provide r Encounter Details Date Type Department Care Team (Late st Contact Info) Description 11/30/[address] [facility] Donor Services [address] [address] Nicole Rosas MD [address] [place] [address] Social History Tobacco Use Types [...] on file Legal Sex Female 6:07 AM PLACEMENT SECRETARY Gender Identity Not on file Sexual Orientation Not on file Occupation Industry Job Start Date Job End Date Not on file Not on file Not on file Not on file documented as of this encounter Plan of Treatment Upcoming Encounters Date Type Department Care Team (Late st Contact Info) Description 01/18/2025 3:00 PM CDT Office Visit [facility] Heart and Vascular - [place] [address] [place] [address] Marlys Mayer MD [address] [place] [address] documented as of this encounter Visit Diagnoses Not on filedocumented in this encounter Additional Health Concerns Infection Onset Date Last Indicated Resolved Time R/O GI Pathogen 09/19/2023 09/19/2023 09/21/2023 7 :33 AM CDT documented as of this encounter Care Teams Cheese Wrapper Relationship Specialty Start Date End Date Guerrero Middleton PA-C PCP - General Physician Data Warehousing Manager 02/13/18 documented as of this encounter
--- OUTSIDE RECORDS SUMMARY | 2024-09-21 22:27 | XMS_ITS | Encounter Summary ---
Author Organization [facility] Address [address] [place] [address] Care Team Providers Care Template Clerk Name Role Phone Guerrero Middleton PA-C Primary Care Provide r Encounter Details Date Type Department Care Team (Late st Contact Info) Description 01/04/2022 Telephone [facility] Donor Services [facility] [place] [address] [place] [address] Phoenix Riddle MD [address] [facility] [place] [address] Social History Tobacco Use Types [...] on file Legal Sex Female 6:07 AM SOLID STATE TESTER Gender Identity Not on file Sexual Orientation [...] Description 01/18/2025 3:00 PM CDT Office Visit [facility] Heart and Vascular - [address] [place] [address] Marlys Mayer MD [address] [place] [address] documented as of this encounter Visit Diagnoses Not on filedocumented in this encounter Additional Health Concerns Infection Onset Date Last Indicated Resolved Time R/O GI Pathogen 09/19/2023 09/19/2023 09/21/2023 7 :33 AM CDT documented as of this encounter Care Teams Template Clerk Relationship Specialty Start Date End Date Guerrero Middleton PA-C PCP - General Physician Accounts Receivable Associate 02/13/18 documented as of this encounter
--- OUTSIDE RECORDS SUMMARY | 2024-09-21 22:27 | XMS_ITS | Encounter Summary ---
Author Organization [facility] Address [address] [place] [address] Care Team Providers Care Drop Forger Name Role Phone Guerrero Middleton PA-C Primary Care Provide r Reason for Visit * Reason Onset Date Comments Bard Port flush 11/16/2021 Attempted to patel ch pt due to needing bard port flushes Encounter Details Date Type Department Care Team (Late st Contact Info) Description 11/16/2021 Telephone [facility] Oncology [address] [place] [address] Nicole Rosas MD [address] [place] [address] Bard Port flush (Attempted to [...] on file Legal Sex Female 6:07 AM CATH LAB MANAGER Gender Identity Not on file Sexual Orientation Not on file Occupation Industry Job Start Date Job End Date Not on file Not on file Not on file Not on file documented as of this encounter Plan of Treatment Upcoming Encounters Date Type Department Care Team (Late st Contact Info) Description 01/18/2025 3:00 PM CDT Office Visit [facility] Heart and Vascular - [facility] [address] [place] [address] Marlys Mayer MD [address] [place] [address] documented as of this encounter Visit Diagnoses Not on filedocumented in this encounter Additional Health Concerns Infection Onset Date Last Indicated Resolved Time R/O GI Pathogen 09/19/2023 09/19/2023 09/21/2023 7 :33 AM CDT documented as of this encounter Care Teams Drop Forger Relationship Specialty Start Date End Date Guerrero Middleton PA-C PCP - General Physician Entry Specialists 02/13/18 documented as of this encounter
--- OUTSIDE RECORDS SUMMARY | 2024-09-21 22:27 | XMS_ITS | Encounter Summary ---
Author Organization [facility] Address [address] [place] [address] Care Team Providers Care Plumbing Contractor Name Role Phone Guerrero Middleton PA-C Primary Care Provide r Encounter Details Date Type Department Care Team (Late st Contact Info) Description 10/26/2021 Telephone [facility] Services [address] [address] Nicole Rosas MD [address] [place] [address] Social History Tobacco Use Types [...] on file Legal Sex Female 6:07 AM CLINICAL SUPPORT ASSOCIATE Gender Identity Not on file Sexual Orientation Not on file Occupation Industry Job Start Date Job End Date Not on file Not on file Not on file Not on file documented as of this encounter Plan of Treatment Upcoming Encounters Date Type Department Care Team (Late st Contact Info) Description 01/18/2025 3:00 PM CDT Office Visit [facility] [address] [place] [address] Marlys Mayer MD [address] [place] [address] documented as of this encounter Visit Diagnoses Not on filedocumented in this encounter Additional Health Concerns Infection Onset Date Last Indicated Resolved Time R/O GI Pathogen 09/19/2023 09/19/2023 09/21/2023 7 :33 AM CDT documented as of this encounter Care Teams Plumbing Contractor Relationship Specialty Start Date End Date Guerrero Middleton PA-C PCP - General Physician Apprentice Plumber 02/13/18 documented as of this encounter
--- OUTSIDE RECORDS SUMMARY | 2024-09-21 22:28 | XMS_ITS | Clinical Summary ---
Author Organization [facility] Address [address] [place] [address] Phone Care Team Providers Care Neonatal Icu Coordinator Name Role Phone Guerrero Middleton PA-C [...] 48h post LHC 4 Active Blood-Glucose Sensor ([employer] G7 Sensor) Device 4 Active buPROPion HCL [...] be different from the original. Marlys Mayer MD--Improvement Auditor ([facility] @ ) Problem [...] [facility] [address] [place] [address] Marlys Mayer MD Mixed hyperlipidemia (Primary Dx); Chylomicronemia syndrome; Coronary artery disease involving [place] coronary artery of [place] heart without angina pectoris; Type 1 diabetes mellitus without complication ([facility]/HCC) 09/08/2024 External Device Data STL ABSTRACTION Provider, Abstract 09/08/2024 External Device Data STL ABSTRACTION Provider, Abstract 09/08/2024 External Device Data STL ABSTRACTION Provider, Abstract 08/11/2024 Abstract [facility] At [address] [place] [address] Marlys Mayer MD 06/30/2024 External [...] often do you attend [facility] or [facility] services? Never 08/21/2018 Do you [...] on file Legal Sex Female 6:07 AM PUMP MECHANIC Gender Identity Not on file Sexual [...] and Vascular - [place] [address] [place] [address] Marlys Mayer MD [address] [place] [address] Health Maintenance Due Date Last [...] history exists Medical Devices Implanted Type Area Respiratory Services Manager Device Identifier Shelf Expiration Date Model / Serial / Lot Cath Hemodlys Glidespath 23cm [id number] Implanted:Qty : 1 on 04/10/2018 by Kayla Sheffield MD Catheter CR BARD[employer] [id number] 08/27/2019 [id number] / / [id number] Description:14.5fr x 23cm; R IJ Port-10/29/2018 Implanted:Qty : 2 on 10/29/2018 by Laverne Willoughby MD Explanted:Qty : 1 on 02/18/2019 by Michael Powell MD Port Right: Chest Wall CR BARD- ACCESS SYS 07/28/2019 / / [id number] Description:two 9.6fr fower flow apheresis ports placed by Dr. Willoughby Port- 0 Implanted:Qty : 1 on 05/11/2019 by Alfa Forrest MD Port Left: Chest Wall CR [employer]ARD[employer] ACCESS SYS 08/26/2020 / / [id number] Stent Synergy Xd 4.0x12mm Evrlms Elut [id number] - [id number] Implanted:Qty : 1 on 11/29/2023 by Miguel Lweis MD at [facility] Stent N/A: Coronary [employer] [id number] 03/19/2024 [id number] / / [id number] Procedures Procedure Name Priority Date/Time Associated Diagnosis Comments LDL CHOLESTEROL, DIRECT Stat 09/19/2023 12:59 AM CDT HEMOGLOBIN A1C Routine 09/18/2023 10:18 PM CDT from Last 3 Months or Most Recently Relevant to Health Maintenance Results * LDL CHOLESTEROL, DIRECT (09/19/2023 12:59 AM CDT) LDL CHOLESTEROL, DIRECT 47 <100 mg/dL 09/19/2023 5:52 AM CDT [facility] Blood Venipuncture / Unknown 09/19/2023 12:59 AM CDT 09/19/2023 1:09 AM CDT [facility] - 09/19/2023 5:52 AM CDT LDL [...] [place] MD CHEMISTRY ORDERABLES Fin al Result [facility]# [id number] 5 [facility] [place] [address] * (ABNORMAL) HEMOGLOBIN A1C (09/18/2023 10:18 PM CDT) HEMOGLOBIN A1C 9.7(H) <5.7 % 09/19/2023 10:59 AM CDT [facility] EST. AVG GLUCOSE, A1C 232 mg/dL 09/19/2023 10:59 AM CDT [facility] Blood Venipuncture / Unknown 09/18/2023 10:18 PM CDT 09/18/2023 10:26 PM CDT [facility] - 09/19/2023 10:59 AM CDT HGB A1C INTERPRETATION NORMAL: <5.7% PRE-DIABETES: 5.7 - 6.4% DIABETES: 6.5% OR GREATER Herlinda Mederos DO CHEMISTRY ORDERABLES Final Resul t [facility]# [id number] [place] [id number] from Last 3 Months or Most Recently Relevant to Health Maintenance Insurance RX [employer] Medicare Part D RX [employer] PLANS (INTERNAL) [facility] RX [employer] PLANS (INTERNAL) [facility] [employer] [facility] [id number] Advance Directives For more information, please contact: [phone] * Full Code (Latest Code Status on [...] 12:11 AM 01/02/2021 4:26 PM Care Teams Neonatal Icu Coordinator Relationship Specialty Start Date End Date Guerrero Middleton PA-C PCP - General Physician Shaper Setter 10/18/18
--- OUTSIDE RECORDS SUMMARY | 2024-09-21 22:28 | XMS_ITS | Referral Summary ---
Author Organization [facility] Address [address] [place] [address] Care Team Providers Care Supervisor Communications And Signals Name Role Phone Mauri Jaime MD Primary Care Provider [phone] Guerrero Middleton PA Unavailable [phone] Allergies Active Allergy Reactions Criticality Noted Date [...] tablet TAKE 1 TABLET BY MOUTH EVERY CONVEYOR MECHANIC 022 Active fenofibrate (TRIGLIDE) 160 mg tablet [...] on file Legal Sex Female 5:05 AM PACKAGE SORTER Gender Identity Not on file Sexual Orientation Not on file Last Filed Vital Signs Vital Sign Reading Time Taken Comments Blood Pressure 101/62 06/05/2023 11:38 AM PACKAGE SORTER Pulse 76 06/05/2023 11:38 AM PACKAGE SORTER Temperature 36.4 C (97.5 F) 06/05/2023 10:35 AM PACKAGE SORTER Respiratory Rate 22 06/05/2023 11:38 AM PACKAGE SORTER Oxygen Saturation 94% 06/05/2023 11:38 AM PACKAGE SORTER Inhaled Oxygen Concentration - - Weight 81.6 kg (180 lb) 06/05/2023 8:58 AM PACKAGE SORTER Height 165.1 cm (5' 5) 06/05/2023 8:58 AM PACKAGE SORTER Body Mass Index 29.95 06/05/2023 8:58 AM PACKAGE SORTER Plan of Treatment Not on file Insurance [facility] [employer] [facility] [employer] [facility] [employer] [facility] [employer] Care Teams Supervisor Communications And Signals Relationship Specialty Start Date End Date Mauri Jaime MD [address] [place] [address] PCP - General Internal Medicine 05/28/23 Guerrero Middleton PA [address] [place] [address] 05/28/23
--- OUTSIDE RECORDS SUMMARY | 2024-09-21 22:28 | XMS_ITS | Clinical Summary ---
Author Organization [facility] Address [address] [place] [address] Care Team Providers Care Art Teacher Name Role Phone Mauri Jaime MD Primary Care Provider [phone] Guerrero Middleton PA Unavailable [phone] Allergies Active Allergy Reactions Criticality Noted Date [...] tablet TAKE 1 TABLET BY MOUTH EVERY WASTE PICKER 022 Active fenofibrate (TRIGLIDE) 160 mg tablet [...] on file Legal Sex Female 5:05 AM INSTRUCTIONAL SYSTEMS SPECIALIST Gender Identity Not on file Sexual Orientation Not on file Obstetrics History Last Filed Vital Signs Vital Sign Reading Time Taken Comments Blood Pressure 101/62 06/05/2023 11:38 AM INSTRUCTIONAL SYSTEMS SPECIALIST Pulse 76 06/05/2023 11:38 AM INSTRUCTIONAL SYSTEMS SPECIALIST Temperature 36.4 C (97.5 F) 06/05/2023 10:35 AM INSTRUCTIONAL SYSTEMS SPECIALIST Respiratory Rate 22 06/05/2023 11:38 AM INSTRUCTIONAL SYSTEMS SPECIALIST Oxygen Saturation 94% 06/05/2023 11:38 AM INSTRUCTIONAL SYSTEMS SPECIALIST Inhaled Oxygen Concentration - - Weight 81.6 kg (180 lb) 06/05/2023 8:58 AM INSTRUCTIONAL SYSTEMS SPECIALIST Height 165.1 cm (5' 5) 06/05/2023 8:58 AM INSTRUCTIONAL SYSTEMS SPECIALIST Body Mass Index 29.95 06/05/2023 8:58 AM INSTRUCTIONAL SYSTEMS SPECIALIST Plan of Treatment Health Maintenance Due Date [...] 03/04/2021, Additional history exists Insurance ANGY BROOKE [facility] [employer] [facility] [employer] [facility] [employer] Care Teams Art Teacher Relationship Specialty Start Date End Date Mauri Jaime MD [address] [facility] [address] [place] [address] PCP - General Internal Medicine 05/28/23 Guerrero Middleton PA [address] [facility] [address] [place] [address] 05/28/23
--- OUTSIDE RECORDS SUMMARY | 2024-09-21 22:28 | XMS_ITS | Clinical Summary ---
Author Organization [facility] Address [address] [address] Phone Care Team Providers Care Lining Machine Operator Name Role Phone Jose G Palmer MD Unavailable [phone] Guerrero Middleton Primary Care Provider Social History [...] to complete this topic Insurance Care Teams Lining Machine Operator Relationship Specialty Start Date End Date Guerrero Middleton PAC [address] [place] [address] PCP - General Physician Circular Knife Machine Cutter 12/10/16 Jose G Palmer MD Consulting Physician Gastroenterology 12/10/16
--- NOTE | 2024-09-21 22:57 | ED_ITS ---
HPI - Abdominal Pain General Chief Complaint: Abdominal Pain <Letha Mcintosh APRN - Last Filed: 09/22/24 03:08> Stated Complaint: abd pain <Letha Mcintosh APRN - Last Filed: 09/22/24 03:08> Time Seen by Provider: 09/21/24 22:18 <Letha Mcintosh APRN - Last Filed: 09/22/24 03:08> History of Present Illness HPI narrative: Pt is a 48-year-old female who presents to the ER with abdominal pain. She has a history of gastroparesis and chronic pancreatitis secondary to hypertriglyceridemia. Pt is well known to our emergency department. She reports her symptoms started yesterday. Patient endorses nausea and vomiting associated with the left upper quadrant pain. She rates her pain at a 7 to 8/10. She denies any lower extremity edema, urinary symptoms, or recent fevers. Patient reports yesterday she had constipation and today she has had diarrhea. She has a history of diabetes, hypothyroidism, hyperlipidemia, and mental health diagnoses. <Letha Mcintosh APRN - Last Filed: 09/22/24 03:08> Related Data Home Medications: Home Medications ?Medication ?Instructions ?Recorded ?Confirmed ?Last Taken ?Type citalopram 40 mg tablet 40 mg PO DAILY 08/31/23 09/22/24 09/21/24 History bupropion HCl 150 mg tablet,12 hr 150 mg PO HS 10/09/23 09/22/24 09/21/24 History sustained-release metoprolol succinate 25 mg 12.5 mg PO DAILY 03/31/24 09/22/24 09/21/24 History tablet,extended release 24 hr olezarsen 80 mg/0.8 mL 80 mg subcut MONTHLY 09/16/24 09/22/24 09/21/24 History subcutaneous auto-injector (Tryngolza) <Letha Mcintosh APRN - Last Filed: 09/22/24 03:08> Allergies/Adverse Reactions: Allergies Allergy/AdvReac Type Severity Reaction Status Date / Time adhesive tape Allergy Mild Rash Verified 09/21/24 20:06 [place] pepper (green pepper) Allergy Unknown Hives Verified 09/21/24 20:06 sucralose (From Splenda Allergy Migraine Verified 09/21/24 20:06 (sucralose)) Artificial Sweetners AdvReac Migraine Uncoded 09/16/24 15:00 <Letha Mcintosh APRN - Last Filed: 09/22/24 03:08> Review of Systems 2 Review of Systems: All systems reviewed & are unremarkable except as noted in HPI and below <Letha Mcintosh APRN - Last Filed: 09/22/24 03:08> [facility] Past Medical History Medical History: Medical History Gastroparesis Chylomicronemia syndrome CAD (coronary artery disease) Anxiety BMI 31.0-31.9,adult Hx of shelter use of blood thinners Abnormal CT scan, esophagus Nausea Occult blood in stools Colon cancer screening Hypertriglyceridemia PCOS (polycystic ovarian syndrome) GERD (gastroesophageal reflux disease) 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 Allergic rhinitis Insulin dependent diabetes mellitus Chronic pancreatitis (~09/02/23) Port-A-Cath in place Lipoprotein deficiency Hyperlipemia Headache <Letha Mcintosh APRN - Last Filed: 09/22/24 03:08> Surgical History Surgical History: Surgical History History of wisdom tooth extraction History of tubal ligation History of partial hysterectomy History of endometrial ablation History of appendectomy History of loop electrical excision procedure (LEEP) History of exploratory laparotomy History of dilatation and curettage History of conization of cervix History of tonsillectomy <Letha Mcintosh APRN - Last Filed: 09/22/24 03:08> Family History Family History: Family History Father Alcohol abuse Hypercholesteremia Hypertension Family history of alcoholism Family history of cardiovascular disease Diabetes mellitus Mother Hypercholesteremia Hypothyroid Cerebrovascular accident Family history of cardiovascular disease Diabetes mellitus Grandparent Skin cancer Colon cancer Heart disease Hypothyroid Cerebrovascular accident Sibling Autoimmune disorder Hypothyroid Kidney disorder Hypertension Diabetes mellitus Other Family history of kidney disease <Letha Mcintosh APRN - Last Filed: 09/22/24 03:08> Social History Social History: Social History Social History: She smokes up to 1ppd since age 16yo. No alcohol or drug use. She has dog and a cat at home. Surrogate medical decision maker: José Miguel Jones, spouse. Code status: Full Smoking packs per day: 0.5 Smoking cigarettes per day: 10.0 Years smoked: 20 Smoking pack-years: 10.00 Smoking status: Current every day smoker Tobacco type: cigarettes Second hand tobacco smoke exposure: No Alcohol intake: never Drinks per week: 0 Substance use: never Substance use type: does not use Do You Feel Safe in your Home?: Yes Lack of Transportation: No Lack of Food: Never True Current Housing: I Have Housing Concerned About Future Housing: No Difficulty Paying Gas/Electric Bills: No Difficulty Paying for Meds: No Currently Unemployed: No Education: Decline to Answer Difficulty w/ Childcare or Family Care: No Living arrangements: with family Occupation/Education: retired 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 HEAD: Normocephalic, atraumatic. NECK: Supple. No adenopathy, no masses. RESPIRATORY: Airway patent, respirations nonlabored. Clear to auscultation bilaterally, no rales, rhonchi, wheezing. CARDIOVASCULAR: Regular rate and rhythm without murmurs, rubs, or gallops. Peripheral pulses 2+ and equal bilaterally. ABDOMINAL: Soft, left upper quadrant tenderness, nondistended. Normoactive BS. MUSCULOSKELETAL: Moves all extremities. Strength/ROM intact without gross deformities. SKIN: Warm, dry, normal color. No rashes. NEURO: A&O X3. Speech clear. Cranial nerves II-XII intact. No ataxic movements. PSYCHIATRIC: Appropriate mood and affect. Normal interaction. <Letha Mcintosh APRN - Last Filed: 09/22/24 03:08> Course BAR WAITER/WAITRESS/PA Physician Supervision BAR WAITER/WAITRESS discussed patient to me. I then discussed patient with data conversion developer hospitalist Dr Remy for admission followed by track repairer helper Dr Mcgrath who recommends insulin drip. Triglycerides are elevated higher than they have been recently. I was available for consultation but did not personally examine patient while in the ED. <Laure Boston MD - Last Filed: 09/23/24 17:42> Vital Signs Vital signs: Vital Signs Temperature 98.2 F 09/21/24 20:00 Pulse Rate 92 09/21/24 20:00 Respiratory Rate 20 09/21/24 20:00 Blood Pressure 116/67 09/21/24 20:00 Pulse Oximetry 98 09/21/24 20:00 Oxygen Delivery Room Air 09/21/24 20:00 Temperature 98.2 F 09/23/24 16:00 Pulse Rate 76 09/23/24 16:00 Respiratory Rate 15 09/23/24 16:00 Blood Pressure 95/69 L 09/23/24 16:00 Pulse Oximetry 96 09/23/24 16:00 Oxygen Delivery Nasal Cannula 09/23/24 08:00 Oxygen Flow Rate 2 09/23/24 08:00 <Letha Mcintosh APRN - Last Filed: 09/22/24 03:08> Vital Signs Temperature 98.2 F 09/21/24 20:00 Pulse Rate 92 09/21/24 20:00 Respiratory Rate 20 09/21/24 20:00 Blood Pressure 116/67 09/21/24 20:00 Pulse Oximetry 98 09/21/24 20:00 Oxygen Delivery Room Air 09/21/24 20:00 Temperature 98.2 F 09/23/24 16:00 Pulse Rate 76 09/23/24 16:00 Respiratory Rate 15 09/23/24 16:00 Blood Pressure 95/69 L 09/23/24 16:00 Pulse Oximetry 96 09/23/24 16:00 Oxygen Delivery Nasal Cannula 09/23/24 08:00 Oxygen Flow Rate 2 09/23/24 08:00 <Laure Boston MD - Last Filed: 09/23/24 17:42> MDM - Abdominal Pain MDM Narrative Medical decision making narrative: Pt is a 48-year-old female who presents to the ER with abdominal pain. She has a history of gastroparesis and chronic pancreatitis secondary to hypertriglyceridemia. Pt is well known to our emergency department. She reports her symptoms started yesterday. Patient endorses nausea and vomiting associated with the left upper quadrant pain. She rates her pain at a 7 to 8/10. She denies any lower extremity edema, urinary symptoms, or recent fevers. Patient reports yesterday she had constipation and today she has had diarrhea. She has a history of diabetes, hypothyroidism, hyperlipidemia, and mental health diagnoses. Labs Ordered: CBC, CMP, UA, triglycerides, magnesium, lipase Imaging Ordered: CT abdomen pelvis with contrast Medications Ordered: Dilaudid 0.5 mg IV, Dilaudid 1 mg IV x 2, Zofran 4 mg IV, 1 L normal saline IV bolus Results: Pt's CT scan indicates Patient's CT abdomen pelvis indicates hepatic steatosis, diverticulosis without acute diverticulitis. No small bowel obstruction. No free air. Wall thickening of the distal ascending colon, correlate for mild colitis. No hydronephrosis or delayed nephrogram. Normal gallbladder, spleen, adrenal glands, and pancreas. Her triglyceride level was 1156. Patient reports she usually requires plasmapheresis or an insulin drip to drop her triglyceride level. Diagnosis: Acute on chronic pancreatitis, hypertriglyceridemia Patient Education/Shared MDM: Results of lab work and imaging shared with patient and her . Patient reports her pain is returning again. Will treat her with another dose of Dilaudid IV. She also endorses full body itchiness from the tape used on her IV site and the sheets. Patient is requesting Benadryl. She will be given a dose of Benadryl 50 mg p.o. It was advised pt be admitted to the hospital for further treatment of her acute on chronic pancreatitis. Pt and her verbalize understanding and are in agreement with plan. [phone]- Call placed to hospitalist to discuss plans for admission. Pt care signed out to Dr. Boston. <Letha Mcintosh, FOOT PRESS OPERATOR - Last Filed: 09/22/24 03:08> Differential Diagnosis Differential diagnosis: Likely abdominal pain, gastroenteritis, pancreatitis and small bowel obstruction <Letha Mcintosh APRN - Last Filed: 09/22/24 03:08> Lab Data Attestation: I reviewed the patient's lab results. <Letha Mcintosh APRN - Last Filed: 09/22/24 03:08> Result diagrams: 09/23/24 04:05 09/23/24 04:05 <Letha Mcintosh, FOOT PRESS OPERATOR - Last Filed: 09/22/24 03:08> Labs: Lab Results 09/21/24 09/21/24 Range/Units 23:35 23:35 WBC 8.8 (4.5-10.0) K/mm3 RBC 4.28 (4.2-5.4) M/mm3 Hgb 13.0 (12.0-15.0) g/dL Hct 38.6 (37.0-47.0) % MCV 90.2 (80-100) fl MCH 30.4 (26-34) pg MCHC 33.7 (32-36) g/dl RDW 14.6 H (11.5-14.5) % Plt Count 235 (150-375) k/mm3 MPV 9.9 (7.4-10.4) fl Immature Gran % (Auto) 0.6 H (0-0.5) % Neut % (Auto) 57.4 (45.5-73.1) % Lymph % (Auto) 35.8 (18.3-44.2) % [place] % (Auto) 5.1 (2.6-8.5) % Eos % (Auto) 0.6 (0-4.4) % Baso % (Auto) 0.5 (0.2-1.2) % Lymph # (Auto) 3.14 (0.9-3.2) K/mm3 [place] # (Auto) 0.5 (0.1-0.6) K/mm3 Eos # (Auto) 0.1 (0-0.3) K/mm3 Baso # (Auto) 0.0 (0.0-0.1) K/mm3 Abs Immat Gran (auto) 0.05 H (0.00-0.031) K/mm3 Absolute Neuts (auto) 5.0 (1.3-6.7) K/mm3 Absolute Nucleated RBC 0.000 (0.0-0.012) K/mm3 Nucleated RBC % 0.0 (0.0-0.2) % Sodium 134 L (137-145) mmol/L Potassium 4.2 (3.4-5.0) mmol/L Chloride 100 (98-107) mmol/L Carbon Dioxide 25 (22-30) mmol/L Anion Gap 9 (4-12) mmol/L BUN 16 D (7-17) mg/dL Creatinine 0.79 (0.7-1.0) mg/dL Estim Creat Clear Calc 80 ml/min Estimated GFR > 60 (59 - ) Glucose 297 H (65-110) mg/dL Calcium 8.9 (8.4-10.2) mg/dL Magnesium Cancelled 1.5 L Total Bilirubin 0.3 (0.2-1.3) mg/dL AST 27 (14-36) U/L ALT 20 (6-35) U/L Alkaline Phosphatase 79 (38-126) U/L Total Protein 7.0 (6.3-8.2) g/dL Albumin 4.4 (3.5-5.1) g/dL Triglycerides 1156 H (<150) mg/dL Lipase 128 (23-300) U/L Urine Color Yellow (Yellow) Urine Appearance Clear (Clear) Urine pH 6.0 (5.0-9.0) Ur Specific [place] 1.033 (1.001-1.035) Urine Protein Negative (Negative) mg/dL Urine Glucose (UA) 3+ H (Negative) mg/dL Urine Ketones Trace H (Negative) mg/dL Ur Blood (Man) Negative (Negative) Urine Nitrate Negative (Negative) Urine Bilirubin Negative (Negative) Urine Urobilinogen 0.2 (<2.0) mg/dL Leukocyte Esterase Rfl Negative (Negative) STEPHEN/UL <Letha Mcintosh, FOOT PRESS OPERATOR - Last Filed: 09/22/24 03:08> Lab Results 09/21/24 09/21/24 Range/Units 23:35 23:35 WBC 8.8 (4.5-10.0) K/mm3 RBC 4.28 (4.2-5.4) M/mm3 Hgb 13.0 (12.0-15.0) g/dL Hct 38.6 (37.0-47.0) % MCV 90.2 (80-100) fl MCH 30.4 (26-34) pg MCHC 33.7 (32-36) g/dl RDW 14.6 H (11.5-14.5) % Plt Count 235 (150-375) k/mm3 MPV 9.9 (7.4-10.4) fl Immature Gran % (Auto) 0.6 H (0-0.5) % Neut % (Auto) 57.4 (45.5-73.1) % Lymph % (Auto) 35.8 (18.3-44.2) % [place] % (Auto) 5.1 (2.6-8.5) % Eos % (Auto) 0.6 (0-4.4) % Baso % (Auto) 0.5 (0.2-1.2) % Lymph # (Auto) 3.14 (0.9-3.2) K/mm3 [place] # (Auto) 0.5 (0.1-0.6) K/mm3 Eos # (Auto) 0.1 (0-0.3) K/mm3 Baso # (Auto) 0.0 (0.0-0.1) K/mm3 Abs Immat Gran (auto) 0.05 H (0.00-0.031) K/mm3 Absolute Neuts (auto) 5.0 (1.3-6.7) K/mm3 Absolute Nucleated RBC 0.000 (0.0-0.012) K/mm3 Nucleated RBC % 0.0 (0.0-0.2) % Sodium 134 L (137-145) mmol/L Potassium 4.2 (3.4-5.0) mmol/L Chloride 100 (98-107) mmol/L Carbon Dioxide 25 (22-30) mmol/L Anion Gap 9 (4-12) mmol/L BUN 16 D (7-17) mg/dL Creatinine 0.79 (0.7-1.0) mg/dL Estim Creat Clear Calc 80 ml/min Estimated GFR > 60 (59 - ) Glucose 297 H (65-110) mg/dL Calcium 8.9 (8.4-10.2) mg/dL Magnesium Cancelled 1.5 L Total Bilirubin 0.3 (0.2-1.3) mg/dL AST 27 (14-36) U/L ALT 20 (6-35) U/L Alkaline Phosphatase 79 (38-126) U/L Total Protein 7.0 (6.3-8.2) g/dL Albumin 4.4 (3.5-5.1) g/dL Triglycerides 1156 H (<150) mg/dL Lipase 128 (23-300) U/L Urine Color Yellow (Yellow) Urine Appearance Clear (Clear) Urine pH 6.0 (5.0-9.0) Ur Specific [place] 1.033 (1.001-1.035) Urine Protein Negative (Negative) mg/dL Urine Glucose (UA) 3+ H (Negative) mg/dL Urine Ketones Trace H (Negative) mg/dL Ur Blood (Man) Negative (Negative) Urine Nitrate Negative (Negative) Urine Bilirubin Negative (Negative) Urine Urobilinogen 0.2 (<2.0) mg/dL Leukocyte Esterase Rfl Negative (Negative) STEPHEN/UL <Laure Boston MD - Last Filed: 09/23/24 17:42> Imaging Data Attestation: I personally reviewed and interpreted this imaging study as follows: < Letha Mcintosh APRN - Last Filed: 09/22/24 03:08> Radiologist's impression: ITS Impressions Abdomen/Pelvis CT 09/22/24 05:29 Impression: Area of focal wall thickening and luminal narrowing at the ascending colon is felt to be most likely related to peristalsis. Focal neoplastic lesion would be a potential alternative consideration. Correlate clinically. Consider colonoscopy for further evaluation. No distinct evidence for bowel obstruction. Diffuse hepatic steatosis. Patient's CT abdomen pelvis indicates hepatic steatosis, diverticulosis without acute diverticulitis. No small bowel obstruction. No free air. Wall thickening of the distal ascending colon, correlate for mild colitis. No hydronephrosis or delayed nephrogram. Normal gallbladder, spleen, adrenal glands, and pancreas. <Letha Mcintosh APRN - Last Filed: 09/22/24 03:08> ITS Impressions Abdomen/Pelvis CT 09/22/24 05:29 Impression: Area of focal wall thickening and luminal narrowing at the ascending colon is felt to be most likely related to peristalsis. Focal neoplastic lesion would be a potential alternative consideration. Correlate clinically. Consider colonoscopy for further evaluation. No distinct evidence for bowel obstruction. Diffuse hepatic steatosis. <Laure Boston MD - Last Filed: 09/23/24 17:42> Discharge Plan Discharge Clinical Impression: Acute on chronic pancreatitis, Chylomicronemia syndrome, Hypertriglyceridemia <Letha Mcintosh APRN - Last Filed: 09/22/24 03:08> Patient Disposition: Still a Patient <Letha Mcnitosh APRN - Last Filed: 09/22/24 03:08> Condition: Stable <Letha Mcintosh APRN - Last Filed: 09/22/24 03:08>
[2024-09-21] MEDS: SODIUM CHLORIDE 0.9% IV 1,000 ML 999 ML IV CONT (23:36)
[2024-09-21] MEDS: ONDANSETRON INJ 4 MG/2 ML VIAL IV PUSH (23:37)
[2024-09-21] MEDS: HYDROmorphone HCL INJ (*CRX) 2 MG/ML VIAL 0.5 MG IV PUSH (23:37)
[2024-09-21 23:48] LABS: Basophils Percent Auto 0.5 % (0.2-1.2); Eosinophils Absolute Auto 0.1 K/mm3 (0-0.3); Eosinophils Percent Auto 0.6 % (0-4.4); Hematocrit 38.6 % (37.0-47.0); Immature Granulocyte Absolute 0.05 K/mm3 (0.00-0.031); Immature Granulocyte Percent A 0.6 % (0-0.5); Lymphocytes Absolute Auto 3.14 K/mm3 (0.9-3.2); Lymphocytes Percent Auto 35.8 % (18.3-44.2); Mean Corpuscular HGB Conc 33.7 g/dl (32-36); Mean Corpuscular Hemoglobin 30.4 pg (26-34); Mean Corpuscular Volume 90.2 fl (80-100); Mean Platelet Volume 9.9 fl (7.4-10.4); Monocytes Absolute Auto 0.5 K/mm3 (0.1-0.6); Monocytes Percent Auto 5.1 % (2.6-8.5); Neutrophils Percent Auto 57.4 % (45.5-73.1); Platelet Count Result 235 k/mm3 (150-375); Red Blood Count 4.28 M/mm3 (4.2-5.4); Red Cell Distribution Width 14.6 % (11.5-14.5); White Blood Count 8.8 K/mm3 (4.5-10.0)
[2024-09-21 23:50] LABS: Add Urine Microscopic? NO; Appearance Urine Clear (Clear); Bilirubin Urine Negative (Negative); Blood Urine Negative (Negative); Color Urine Yellow (Yellow); Glucose Urine UA 3+ mg/dL (Negative); Ketones Urine Trace mg/dL (Negative); Leukocyte Esterase Ur Negative LEU/UL (Negative); Nitrate Urine Negative (Negative); Protein Urine Negative (Negative); Specific Grav Ur 1.033 (1.001-1.035); Urobilinogen Urine 0.2 mg/dL (<2.0)
[2024-09-22] VITALS (19 sets, daily range): BP systolic 79–117; BP diastolic 51–76; PULSE 75–94; RESP 10–17; TEMP 36.5–36.6; O2SAT 90–100; BMI 29.7
[2024-09-22 00:01] LABS: Alanine Aminotransferase 20 U/L (6-35); Albumin Level 4.4 g/dL (3.5-5.1); Alkaline Phosphatase 79 U/L (38-126); Anion Gap 9 mmol/L (4-12); Aspartate Amino Transferase 27 U/L (14-36); Bilirubin,Total 0.3 mg/dL (0.2-1.3); Blood Urea Nitrogen 16 mg/dL (7-17); Calcium 8.9 mg/dL (8.4-10.2); Carbon Dioxide 25 mmol/L (22-30); Chloride 100 mmol/L (98-107); Estimated CRCL calculation 80 ml/min; Estimated Glomerular Filt Rate > 60; Glucose 297 mg/dL (65-110); Lipase 128 U/L (23-300); Potassium 4.2 mmol/L (3.4-5.0); Sodium 134 mmol/L (137-145)
[2024-09-22] MEDS: HYDROmorphone HCL INJ (*CRX) 2 MG/ML VIAL 1 MG IV PUSH ×8 (00:58→21:03)
[2024-09-22 02:19] LABS: Magnesium 1.5 mg/dL (1.6-2.3)
[2024-09-22 02:28] LABS: Triglycerides 1156 mg/dL (<150)
[2024-09-22] MEDS: diphenhydrAMINE HCl CAP 25 MG CAPSULE 50 MG PO (03:19)
[2024-09-22] MEDS: INSULIN HUMAN REGULAR (*BKC) 100 UNITS in SODIUM CHLORIDE 0.9% IV 99 ML 8 UNITS IV CONT (04:28)
[2024-09-22 04:32] LABS: Glucose Point of Care 267 mg/dl (65-105)
[2024-09-22 05:31] LABS: Glucose Point of Care 271 mg/dl (65-105)
[2024-09-22 05:31] LABS: Glucose Point of Care 310 mg/dl (65-105)
[2024-09-22 06:27] LABS: Glucose Point of Care 226 mg/dl (65-105)
[2024-09-22 07:20] LABS: Glucose Point of Care 115 mg/dl (65-105)
[2024-09-22 07:38] LABS: MRSA (PCR) NOT DETECTED (NOT DETECTE)
[2024-09-22 07:42] LABS: Glucose Point of Care 85 mg/dl (65-105)
--- NOTE | 2024-09-22 07:44 | PC.NURSE ---
This patient, Casandra Jones, was admitted to Intensive Care Unit-8. Patient/family oriented to hospital policies and general routines including ID bracelet, bed and alarms, visiting hours, pain management, procedures, bathroom and other care routines, personal items, smoking policy, room service/diet, and visiting hours. Information on how to activate the Rapid Response Team has been discussed. Patient/Family are encouraged to report perceived risks to care and to ask questions if they do not understand what they are told or what they should do.
[2024-09-22] MEDS: MAGNESIUM SULF 2 GM/WATER 50ML 2 GM/50 ML BAG IVPB (08:08)
[2024-09-22] MEDS: LACTATED RINGERS 500 ML IV CONT (08:09)
[2024-09-22] MEDS: diphenhydrAMINE HCl INJ 50 MG/ML VIAL 25 MG IV PUSH ×3 (08:10→20:10)
[2024-09-22] MEDS: DEXTROSE 10% 1,000 ML 100 ML IV CONT ×2 (08:10→18:06)
[2024-09-22 09:08] LABS: Glucose Point of Care 130 mg/dl (65-105)
[2024-09-22] MEDS: INSULIN HUMAN REGULAR (*BKC) 100 UNITS in SODIUM CHLORIDE 0.9% IV 99 ML IV CONT (09:49)
--- NOTE | 2024-09-22 09:49 | P.CONIN_ITS ---
Assessment and Plan Assessment and plan (1) Acute on chronic pancreatitis: Code(s): K85.90 - Acute pancreatitis without necrosis or infection, unspecified; K86.1 - Other chronic pancreatitis Status: Acute Assessment and Plan: Patient has a history of chronic abdominal pain with intermittent exacerbation with development of acute on chronic pancreatitis. -09/22: Presented with abdominal pain, nausea vomiting, triglycerides more elevated to 1156 -for patient's insulin infusion 1 unit/hour for hypertriglyceridemia lumbar D10 infusion -if blood sugars remain stable will increase insulin infusion rate -continue to monitor triglycerides q.12 hours -continue fenofibrate, atorvastatin (2) Abdominal pain: Code(s): R10.9 - Unspecified abdominal pain Status: Acute Assessment and Plan: Dilaudid p.r.n. 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 Qualified Code(s): E03.8 - Other specified hypothyroidism; E06.3 - Autoimmune thyroiditis Code(s): E03.9 - Hypothyroidism, unspecified Status: Acute Assessment and Plan: Continue home levothyroxine (7) GERD (gastroesophageal reflux disease): Qualifiers: Esophagitis presence: esophagitis presence not specified Qualified Code(s): K21.9 - Gastro-esophageal reflux disease without esophagitis Code(s): K21.9 - Gastro-esophageal reflux disease without esophagitis Status: Acute Assessment and Plan: Continue home PPI Plan DVT prophylaxis: Lovenox Stress ulcer prophylaxis: Protonix Nutrition: NPO Code Status: Full code Critical Care Time Spent: 48 minutes Due to a high probability of clinically significant, life threatening deterioration, the patient required my highest level of preparedness to intervene emergently and I personally spent this critical care time directly and personally managing the patient. This critical care time included obtaining a history; examining the patient; pulse oximetry; ordering and review of studies; arranging urgent treatment with development of a management plan; evaluation of patient's response to treatment; frequent reassessment; and discussions with other providers. It was exclusive of separately billable procedures and treating other patients and teaching time. Please see Assessment and Plan section and the rest of the note for further information on patient assessment and treatment This dictation may have been done utilizing a voice recognition system. Attempts have been made to correct errors. However, there may be uncorrected grammatical, spelling, and recognitions errors present. Onsite Health Coach Consult Note Consult date: 09/22/24 Reason for consult: Acute on chronic pancreatitis secondary to hypertriglyceridemia, abdominal pain, nausea, vomiting HPI: Casandra Jones is a 48 year old female with significant past medical history of chronic pancreatitis, hypothyroidism, Chylomicronemia syndrome, GERD, hypertriglyceridemia,, insulin-dependent diabetes and on insulin, lipoprotein deficiency, polycystic ovarian syndrome, Port-A-Cath x2, coronary artery disease status post stent x3 in June 2023 at [facility], history of multiple plasmapheresis as outpatient and inpatient presented to the ED on 09/22/2024 with complains of abdominal pain, nausea, vomiting. Complains of pain this started on 09/21/2024, right upper quadrant associated with nausea, vomiting. Pain rates at 7-8/10. She also had intermittent constipation and diarrhea. Decreased oral intake secondary to abdominal pain. When she gets the symptoms she normally presents to the ED. in the ER patient was found to have elevated triglycerides of 1156. Patient was given 1 L IV fluids, treated with Dilaudid and Benadryl and transferred to the ICU for further management. Off note patient normally gets admitted once a month for similar complaints, has been on insulin infusion and or plasmapheresis for her hypertriglyceridemia. Patient seen and examined the plan for the ICU, requesting for Benadryl for itching, pain is better control after she received Dilaudid. Denies any blood in stool, hematemesis, chest pain, shortness of breath. States she is unable to keep anything down due to her abdominal pain. She receives a monthly injection of of Tryngolza which is supposed to be in 09/25/2024. Patient is otherwise awake, alert, oriented, able to answer all questions to and provide a history. 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 Allergic rhinitis Insulin dependent diabetes mellitus Chronic pancreatitis (~09/02/23) Port-A-Cath in place Lipoprotein deficiency Hyperlipemia Headache Surgical History Surgical History History of wisdom tooth extraction History of tubal ligation History of partial hysterectomy History of endometrial ablation History of appendectomy History of loop electrical excision procedure (LEEP) History of exploratory laparotomy History of dilatation and curettage History of conization of cervix History of tonsillectomy Family History Family History Father Alcohol abuse Hypercholesteremia Hypertension Family history of alcoholism Family history of cardiovascular disease Diabetes mellitus Mother Hypercholesteremia Hypothyroid Cerebrovascular accident Family history of cardiovascular disease Diabetes mellitus Grandparent Skin cancer Colon cancer Heart disease Hypothyroid Cerebrovascular accident Sibling Autoimmune disorder Hypothyroid Kidney disorder Hypertension Diabetes mellitus Other Family history of kidney disease Social History Social History Social History: She smokes up to 1ppd since age 16yo. No alcohol or drug use. She has dog and a cat at home. Surrogate medical decision maker: José Miguel Jones, spouse. Code status: Full Smoking packs per day: 0.5 Smoking cigarettes per day: 10.0 Years smoked: 20 Smoking pack-years: 10.00 Smoking status: Current every day smoker Tobacco type: cigarettes Second hand tobacco smoke exposure: No Alcohol intake: never Drinks per week: 0 Substance use: never Substance use type: does not use Do You Feel Safe in your Home?: Yes Lack of Transportation: No Lack of Food: Never True Current Housing: I Have Housing Concerned About Future Housing: No Difficulty Paying Gas/Electric Bills: No Difficulty Paying for Meds: No Currently Unemployed: No Education: Decline to Answer Difficulty w/ Childcare or Family Care: No Living arrangements: with family Occupation/Education: retired 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 Gender identity (if verbalized by the patient): Female Spiritual care concerns: No Meds Home Medications and Allergies Home Medications ?Medication ?Instructions ?Recorded ?Confirmed ?Type metformin 500 mg tablet 1,000 mg (2 x 500 mg) PO BID #180 12/19/22 09/16/24 Rx tabs aspirin 81 mg tablet,delayed 81 mg PO QAM #30 tabs 07/25/23 09/16/24 Rx release pantoprazole 40 mg tablet,delayed 40 mg PO BID #30 tabs 08/22/23 09/16/24 Rx release (Protonix) citalopram 40 mg tablet 40 mg PO DAILY 08/31/23 09/16/24 History ticagrelor 90 mg tablet (Brilinta) 90 mg PO BID #180 tabs 10/03/23 09/16/24 Rx bupropion HCl 150 mg tablet,12 hr 150 mg PO HS 10/09/23 09/16/24 History sustained-release ondansetron 4 mg disintegrating 4 mg PO Q8H PRN nausea and 02/27/24 09/16/24 Rx tablet vomiting #10 tabs metoprolol succinate 25 mg 12.5 mg PO DAILY 03/31/24 09/16/24 History tablet,extended release 24 hr docusate sodium 100 mg capsule 100 mg PO Q12HR PRN constipation 04/08/24 09/16/24 Rx #20 caps fenofibrate 160 mg tablet 160 mg PO DAILY #90 tabs 04/27/24 09/16/24 Rx trazodone 100 mg tablet 200 mg (2 x 100 mg) PO HS #180 tabs 06/17/24 09/16/24 Rx lorazepam 1 mg tablet 1 mg PO QHS PRN sleep #90 tabs 07/20/24 09/16/24 Rx atorvastatin 80 mg tablet 80 mg PO HS #90 tabs 08/13/24 09/16/24 Rx insulin glargine 100 unit/mL (3 20 unit (0.2 mL) subcut QAM #3 mL 09/16/24 09/16/24 Rx mL) subcutaneous pen (Lantus Solostar U-100 Insulin) levothyroxine 200 mcg tablet 200 mcg PO DAILY #90 tabs 09/16/24 09/16/24 Rx metoclopramide HCl 5 mg tablet 5 mg PO TIDWMEAL nausea and 09/16/24 09/16/24 Rx vomiting 1 month #90 tabs olezarsen 80 mg/0.8 mL 80 mg subcut MONTHLY 09/16/24 09/16/24 History subcutaneous auto-injector (Tryngolza) insulin aspart U-100 100 unit/mL See Rx Instructions .Route 09/22/24 Rx subcutaneous solution (Novolog .COMPLEX #50 mL U-100 Insulin aspart) Allergies Allergy/AdvReac Type Severity Reaction Status Date / Time adhesive tape Allergy Mild Rash Verified 09/21/24 20:06 [place] pepper (green pepper) Allergy Unknown Hives Verified 09/21/24 20:06 sucralose (From Splenda Allergy Migraine Verified 09/21/24 20:06 (sucralose)) Artificial Sweetners AdvReac Migraine Uncoded 09/16/24 15:00 Vital Signs Vital Signs - 24 hr 09/21/24 20:00 09/21/24 22:06 09/21/24 22:16 Temperature 98.2 F Pulse Rate 92 100 Respiratory Rate 20 18 Blood Pressure 116/67 103/77 100/65 Pulse Oximetry 98 97 95 Oxygen Delivery Room Air Oxygen Flow Rate 09/22/24 00:00 09/22/24 02:15 09/22/24 04:29 Temperature Pulse Rate 94 86 91 Respiratory Rate 17 12 13 Blood Pressure 111/76 117/65 109/74 Pulse Oximetry 96 94 95 Oxygen Delivery Oxygen Flow Rate 09/22/24 04:30 09/22/24 04:30 09/22/24 04:45 Temperature Pulse Rate 87 89 87 Respiratory Rate 15 14 15 Blood Pressure 105/73 105/73 101/74 Pulse Oximetry 94 93 93 Oxygen Delivery Oxygen Flow Rate 09/22/24 05:00 09/22/24 05:29 09/22/24 05:30 Temperature Pulse Rate 86 88 83 Respiratory Rate 12 17 15 Blood Pressure 104/65 105/64 110/68 Pulse Oximetry 92 93 91 Oxygen Delivery Oxygen Flow Rate 09/22/24 06:53 09/22/24 08:00 09/22/24 08:00 Temperature 97.8 F Pulse Rate 90 Respiratory Rate 11 L Blood Pressure 80/63 L Pulse Oximetry 98 90 94 Oxygen Delivery Nasal Cannula Nasal Cannula Oxygen Flow Rate 2 2 09/22/24 08:00 Temperature Pulse Rate 84 Respiratory Rate Blood Pressure Pulse Oximetry Oxygen Delivery Oxygen Flow Rate Exam 2 Narrative: General: Pleasant female in no acute distress at this time HEENT:? Pupils equal and reactive, sclera is clear, dry oral mucosa Neck:? Supple Respiratory:? Clear to auscultation bilaterally home, no wheezing, adequate air entry Cardiac:? S1-S2 normal, regular rate and rhythm Abdomen:? Soft, tender to palpation in the epigastric and right upper quadrant region. Hypoactive bowel sounds, nondistended Extremities:? No cyanosis, clubbing or edema. Bilateral lower extremity are warm Neuro:? Patient is awake, alert, oriented, nonfocal, moves all extremities and follows simple commands Skin:? No skin lesions note Psych:? Normal mentation and affect Results Labs 09/21/24 23:35 09/21/24 23:35 Labs: Short CBC 09/21/24 Range/Units 23:35 WBC 8.8 (4.5-10.0) K/mm3 Hgb 13.0 (12.0-15.0) g/dL Hct 38.6 (37.0-47.0) % Plt Count 235 (150-375) k/mm3 BMP 09/21/24 23:35 Sodium 134 L Potassium 4.2 Chloride 100 Carbon Dioxide 25 BUN 16 D Creatinine 0.79 Glucose 297 H Calcium 8.9 Liver Function 09/21/24 Range/Units 23:35 Total Bilirubin 0.3 (0.2-1.3) mg/dL AST 27 (14-36) U/L ALT 20 (6-35) U/L Alkaline Phosphatase 79 (38-126) U/L Albumin 4.4 (3.5-5.1) g/dL Urine 09/21/24 Range/Units 23:35 Urine Color Yellow (Yellow) Urine Appearance Clear (Clear) Urine pH 6.0 (5.0-9.0) Ur Specific [place] 1.033 (1.001-1.035) Urine Protein Negative (Negative) mg/dL Urine Glucose (UA) 3+ H (Negative) mg/dL
[2024-09-22 09:59] LABS: Glucose Point of Care 138 mg/dl (65-105)
[2024-09-22 11:02] LABS: Glucose Point of Care 149 mg/dl (65-105)
[2024-09-22 11:54] LABS: Triglycerides 500 mg/dL (<150)
[2024-09-22 11:56] LABS: Glucose Point of Care 166 mg/dl (65-105)
[2024-09-22 13:11] LABS: Glucose Point of Care 170 mg/dl (65-105)
[2024-09-22 14:05] LABS: Glucose Point of Care 189 mg/dl (65-105)
[2024-09-22] MEDS: ONDANSETRON INJ 4 MG/2 ML VIAL IV PUSH ×2 (14:25→20:10)
[2024-09-22 15:22] LABS: Glucose Point of Care 209 mg/dl (65-105)
[2024-09-22 16:06] LABS: Glucose Point of Care 185 mg/dl (65-105)
[2024-09-22 17:11] LABS: Glucose Point of Care 177 mg/dl (65-105)
--- NOTE | 2024-09-22 17:49 | P.HP_ITS ---
H&P: HPI History of Present Illness Date/Time: 09/22/24 17:49 Chief Complaint: Abdominal pain Narrative: HPI narrative: Pt is a 48-year-old female who presents to the ER with abdominal pain. She has a history of gastroparesis and chronic pancreatitis secondary to hypertriglyceridemia. Pt is well known to our emergency department. She reports her symptoms started yesterday. Patient endorses nausea and vomiting associated with the left upper quadrant pain. She rates her pain at a 7 to 8/10. She denies any lower extremity edema, urinary symptoms, or recent fevers. Patient reports yesterday she had constipation and today she has had diarrhea. She has a history of diabetes, hypothyroidism, hyperlipidemia, and mental health diagnoses. patient with history of chronic panceatitis 2/2 hypertriglycemia patiented with epigastric pain and elevated tryglycerides of 1156, blood sugar of 297 and urine showing trace of ketone patient is admitted into ICU and international account representative has started patient on low dose insulin drip 1units per hour and being hydrated, will monitor blood sugars and triglycerides levels Review of Systems Review of Systems: All systems reviewed & are unremarkable except as noted in HPI and below PMFSH Past Medical History Medical History Gastroparesis Chylomicronemia syndrome CAD (coronary artery disease) Anxiety BMI 31.0-31.9,adult 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 Abnormal CT scan, esophagus Nausea Occult blood in stools Colon cancer screening Hypertriglyceridemia PCOS (polycystic ovarian syndrome) GERD (gastroesophageal reflux disease) 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 Allergic rhinitis Insulin dependent diabetes mellitus Chronic pancreatitis (~09/02/23) Port-A-Cath in place Lipoprotein deficiency Hyperlipemia Headache Surgical History Surgical History History of wisdom tooth extraction History of tubal ligation History of partial hysterectomy History of endometrial ablation History of appendectomy History of loop electrical excision procedure (LEEP) History of exploratory laparotomy History of dilatation and curettage History of conization of cervix History of tonsillectomy Family History Family History Father Alcohol abuse Hypercholesteremia Hypertension Family history of alcoholism Family history of cardiovascular disease Diabetes mellitus Mother Hypercholesteremia Hypothyroid Cerebrovascular accident Family history of cardiovascular disease Diabetes mellitus Grandparent Skin cancer Colon cancer Heart disease Hypothyroid Cerebrovascular accident Sibling Autoimmune disorder Hypothyroid Kidney disorder Hypertension Diabetes mellitus Other Family history of kidney disease Social History Social History Social History: She smokes up to 1ppd since age 16yo. No alcohol or drug use. She has dog and a cat at home. Surrogate medical decision maker: José Miguel Jones, spouse. Code status: Full Smoking packs per day: 0.5 Smoking cigarettes per day: 10.0 Years smoked: 20 Smoking pack-years: 10.00 Smoking status: Current every day smoker Tobacco type: cigarettes Second hand tobacco smoke exposure: No Alcohol intake: never Drinks per week: 0 Substance use: never Substance use type: does not use Do You Feel Safe in your Home?: Yes Lack of Transportation: No Lack of Food: Never True Current Housing: I Have Housing Concerned About Future Housing: No Difficulty Paying Gas/Electric Bills: No Difficulty Paying for Meds: No Currently Unemployed: No Education: Decline to Answer Difficulty w/ Childcare or Family Care: No Living arrangements: with family Occupation/Education: retired 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 Gender identity (if verbalized by the patient): Female Spiritual care concerns: No Meds Home Medications and Allergies Home Medications ?Medication ?Instructions ?Recorded ?Confirmed ?Type metformin 500 mg tablet 1,000 mg (2 x 500 mg) PO BID #180 12/19/22 09/22/24 Rx tabs aspirin 81 mg tablet,delayed 81 mg PO QAM #30 tabs 07/25/23 09/22/24 Rx release pantoprazole 40 mg tablet,delayed 40 mg PO BID #30 tabs 08/22/23 09/22/24 Rx release (Protonix) citalopram 40 mg tablet 40 mg PO DAILY 08/31/23 09/22/24 History ticagrelor 90 mg tablet (Brilinta) 90 mg PO BID #180 tabs 10/03/23 09/22/24 Rx bupropion HCl 150 mg tablet,12 hr 150 mg PO HS 10/09/23 09/22/24 History sustained-release ondansetron 4 mg disintegrating 4 mg PO Q8H PRN nausea and 10/31/24 05/27/25 Rx tablet vomiting #10 tabs metoprolol succinate 25 mg 12.5 mg PO DAILY 03/31/24 09/22/24 History tablet,extended release 24 hr docusate sodium 100 mg capsule 100 mg PO Q12HR PRN constipation 04/08/24 09/22/24 Rx #20 caps fenofibrate 160 mg tablet 160 mg PO DAILY #90 tabs 04/27/24 09/22/24 Rx trazodone 100 mg tablet 200 mg (2 x 100 mg) PO HS #180 tabs 06/17/24 09/22/24 Rx lorazepam 1 mg tablet 1 mg PO QHS PRN sleep #90 tabs 07/20/24 09/22/24 Rx atorvastatin 80 mg tablet 80 mg PO HS #90 tabs 08/13/24 09/22/24 Rx levothyroxine 200 mcg tablet 200 mcg PO DAILY #90 tabs 09/16/24 09/22/24 Rx metoclopramide HCl 5 mg tablet 5 mg PO TIDWMEAL nausea and 09/16/24 09/22/24 Rx vomiting 1 month #90 tabs olezarsen 80 mg/0.8 mL 80 mg subcut MONTHLY 09/16/24 09/22/24 History subcutaneous auto-injector (Tryngolza) insulin aspart U-100 100 unit/mL See Rx Instructions .Route 09/22/24 09/22/24 Rx subcutaneous solution (Novolog .COMPLEX #50 mL U-100 Insulin aspart) Allergies Allergy/AdvReac Type Severity Reaction Status Date / Time adhesive tape Allergy Mild Rash Verified 09/21/24 20:06 [place] pepper (green pepper) Allergy Unknown Hives Verified 09/21/24 20:06 sucralose (From Splenda Allergy Migraine Verified 09/21/24 20:06 (sucralose)) Artificial Sweetners AdvReac Migraine Uncoded 09/16/24 15:00 Vital Signs Vital Signs - 24 hr 09/21/24 20:00 09/21/24 22:06 09/21/24 22:16 Temperature 36.8 C Pulse Rate 92 100 Respiratory Rate 20 18 Blood Pressure 116/67 103/77 100/65 Pulse Oximetry 98 97 95 Oxygen Delivery Room Air Oxygen Flow Rate 09/22/24 00:00 09/22/24 02:15 09/22/24 04:29 Temperature Pulse Rate 94 86 91 Respiratory Rate 17 12 13 Blood Pressure 111/76 117/65 109/74 Pulse Oximetry 96 94 95 Oxygen Delivery Oxygen Flow Rate 09/22/24 04:30 09/22/24 04:30 09/22/24 04:45 Temperature Pulse Rate 87 89 87 Respiratory Rate 15 14 15 Blood Pressure 105/73 105/73 101/74 Pulse Oximetry 94 93 93 Oxygen Delivery Oxygen Flow Rate 09/22/24 05:00 09/22/24 05:29 09/22/24 05:30 Temperature Pulse Rate 86 88 83 Respiratory Rate 12 17 15 Blood Pressure 104/65 105/64 110/68 Pulse Oximetry 92 93 91 Oxygen Delivery Oxygen Flow Rate 09/22/24 06:53 09/22/24 08:00 09/22/24 08:00 Temperature 36.6 C Pulse Rate 90 Respiratory Rate 11 L Blood Pressure 80/63 L Pulse Oximetry 98 90 94 Oxygen Delivery Nasal Cannula Nasal Cannula Oxygen Flow Rate 2 2 09/22/24 08:00 09/22/24 10:00 09/22/24 10:00 Temperature 36.5 C Pulse Rate 84 78 75 Respiratory Rate 12 Blood Pressure 104/55 L Pulse Oximetry 99 Oxygen Delivery Oxygen Flow Rate 09/22/24 12:00 09/22/24 12:00 09/22/24 12:00 Temperature 36.5 C Pulse Rate 78 78 Respiratory Rate 10 L 10 L Blood Pressure 79/66 L 91/66 L Pulse Oximetry 98 98 Oxygen Delivery Nasal Cannula Oxygen Flow Rate 2 09/22/24 12:00 09/22/24 14:00 09/22/24 14:00 Temperature Pulse Rate 78 78 78 Respiratory Rate 16 Blood Pressure 103/66 Pulse Oximetry 98 Oxygen Delivery Oxygen Flow Rate 09/22/24 16:00 09/22/24 16:00 09/22/24 16:00 Temperature Pulse Rate 78 78 78 Respiratory Rate 16 10 L Blood Pressure 92/59 L Pulse Oximetry 98 98 Oxygen Delivery Nasal Cannula Oxygen Flow Rate 2 Exam Narrative: Patient is comfortable, NAD HEENT: eyes are clear and none icteric LUNGS:CTA HEART: RR S1S2 ABD: BS+, Soft and nontender Lower extremities: no edema SKIN: nonjaundiced Neuro: grossly intact. H&P: Results Labs Labs: Short CBC 05/26/25 Range/Units 23:35 WBC 8.8 (4.5-10.0) K/mm3 Hgb 13.0 (12.0-15.0) g/dL Hct 38.6 (37.0-47.0) % Plt Count 235 (150-375) k/mm3 BMP 09/21/24 23:35 Sodium 134 L Potassium 4.2 Chloride 100 Carbon Dioxide 25 BUN 16 D Creatinine 0.79 Glucose 297 H Calcium 8.9 Liver Function 09/21/24 Range/Units 23:35 Total Bilirubin 0.3 (0.2-1.3) mg/dL AST 27 (14-36) U/L ALT 20 (6-35) U/L Alkaline Phosphatase 79 (38-126) U/L Albumin 4.4 (3.5-5.1) g/dL Urine 09/21/24 Range/Units 23:35 Urine Color Yellow (Yellow) Urine Appearance Clear (Clear) Urine pH 6.0 (5.0-9.0) Ur Specific Left Hand 1.033 (1.001-1.035) Urine Protein Negative (Negative) mg/dL Urine Glucose (UA) 3+ H (Negative) mg/dL Assessment and Plan Assessment and plan (1) Acute on chronic pancreatitis: Code(s): K85.90 - Acute pancreatitis without necrosis or infection, unspecified; K86.1 - Other chronic pancreatitis Status: Acute (2) Abdominal pain: Code(s): R10.9 - Unspecified abdominal pain Status: Acute (3) CAD (coronary artery disease): Code(s): I25.10 - Atherosclerotic heart disease of [place] coronary artery without angina pectoris Status: Acute (4) Type 2 diabetes mellitus: Qualifiers: Diabetes mellitus chcf insulin use: with denture contour wire specialist use Diabetes mellitus complication status: without complication Qualified Code(s): E11.9 - Type 2 diabetes mellitus without complications; Z79.4 - alf (current) use of insulin Code(s): E11.9 - Type 2 diabetes mellitus without complications Status: Chronic (5) Nausea: Code(s): R11.0 - Nausea Status: Acute (6) Hypothyroidism: Qualifiers: 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 Qualified Code(s): E03.8 - Other specified hypothyroidism; E06.3 - Autoimmune thyroiditis Code(s): E03.9 - Hypothyroidism, unspecified Status: Acute (7) GERD (gastroesophageal reflux disease): Qualifiers: Esophagitis presence: esophagitis presence not specified Qualified Code(s): K21.9 - Gastro-esophageal reflux disease without esophagitis Code(s): K21.9 - Gastro-esophageal reflux disease without esophagitis Status: Acute Plan patient with history of chronic panceatitis 2/2 hypertriglycemia patiented with epigastric pain and elevated tryglycerides of 1156, blood sugar of 297 and urine showing trace of ketone patient is admitted into ICU and international account representative has started patient on low dose insulin drip 1units per hour and being hydrated, will monitor blood sugars and triglycerides levels
[2024-09-22 18:07] LABS: Glucose Point of Care 168 mg/dl (65-105)
[2024-09-22 19:10] LABS: Glucose Point of Care 159 mg/dl (65-105)
[2024-09-22] MEDS: PANTOPRAZOLE 40 MG TABLET PO (20:10)
[2024-09-22] MEDS: TICAGRELOR 90 MG TABLET PO (20:10)
[2024-09-22] MEDS: traZODone HCL 50 MG TABLET 200 MG PO (20:10)
[2024-09-22] MEDS: LORazepam (*CRX) 1 MG TABLET PO (20:11)
[2024-09-22] MEDS: buPROPion HCL SR (12 HR) 150 MG TAB PO (21:04)
[2024-09-22 21:08] LABS: Glucose Point of Care 157 mg/dl (65-105)
[2024-09-22 21:08] LABS: Glucose Point of Care 154 mg/dl (65-105)
[2024-09-22 22:11] LABS: Glucose Point of Care 162 mg/dl (65-105)
[2024-09-22 23:08] LABS: Glucose Point of Care 160 mg/dl (65-105)
[2024-09-22 23:42] LABS: Triglycerides 283 mg/dL (<150)
[2024-09-23] VITALS (10 sets, daily range): BP systolic 80–99; BP diastolic 49–69; PULSE 75–86; RESP 10–16; TEMP 36.5–36.8; O2SAT 94–98
[2024-09-23] MEDS: HYDROmorphone HCL INJ (*CRX) 2 MG/ML VIAL 1 MG IV PUSH ×8 (00:04→22:21)
[2024-09-23] MEDS: ONDANSETRON INJ 4 MG/2 ML VIAL IV PUSH ×5 (00:04→20:20)
[2024-09-23 00:30] LABS: Glucose Point of Care 177 mg/dl (65-105)
[2024-09-23 01:06] LABS: Glucose Point of Care 154 mg/dl (65-105)
[2024-09-23 02:04] LABS: Glucose Point of Care 170 mg/dl (65-105)
[2024-09-23] MEDS: diphenhydrAMINE HCl INJ 50 MG/ML VIAL 25 MG IV PUSH ×2 (02:58→12:20)
[2024-09-23 03:03] LABS: Glucose Point of Care 186 mg/dl (65-105)
[2024-09-23 04:10] LABS: Basophils Percent Auto 0.5 % (0.2-1.2); Eosinophils Absolute Auto 0.1 K/mm3 (0-0.3); Eosinophils Percent Auto 0.7 % (0-4.4); Hemoglobin 11.3 g/dL (12.0-15.0); Immature Granulocyte Absolute 0.05 K/mm3 (0.00-0.031); Immature Granulocyte Percent A 0.7 % (0-0.5); Lymphocytes Absolute Auto 2.27 K/mm3 (0.9-3.2); Lymphocytes Percent Auto 30.6 % (18.3-44.2); Mean Corpuscular HGB Conc 31.4 g/dl (32-36); Mean Corpuscular Hemoglobin 29.3 pg (26-34); Mean Corpuscular Volume 93.3 fl (80-100); Mean Platelet Volume 9.1 fl (7.4-10.4); Monocytes Absolute Auto 0.5 K/mm3 (0.1-0.6); Monocytes Percent Auto 6.3 % (2.6-8.5); Neutrophils Absolute Auto 4.6 K/mm3 (1.3-6.7); Neutrophils Percent Auto 61.2 % (45.5-73.1); Platelet Count Result 182 k/mm3 (150-375); Red Blood Count 3.86 M/mm3 (4.2-5.4); White Blood Count 7.4 K/mm3 (4.5-10.0)
[2024-09-23 04:18] LABS: Glucose Point of Care 178 mg/dl (65-105)
[2024-09-23 04:23] LABS: Alanine Aminotransferase 18 U/L (6-35); Albumin Level 4.2 g/dL (3.5-5.1); Alkaline Phosphatase 61 U/L (38-126); Anion Gap 9 mmol/L (4-12); Aspartate Amino Transferase 27 U/L (14-36); Bilirubin,Total 0.3 mg/dL (0.2-1.3); Blood Urea Nitrogen 12 mg/dL (7-17); Calcium 8.3 mg/dL (8.4-10.2); Carbon Dioxide 24 mmol/L (22-30); Chloride 102 mmol/L (98-107); Estimated CRCL calculation 94 ml/min; Estimated Glomerular Filt Rate > 60; Glucose 151 mg/dL (65-110); Magnesium 1.9 mg/dL (1.6-2.3); Phosphorus 4.1 mg/dL (2.5-4.5); Potassium 3.7 mmol/L (3.4-5.0); Sodium 135 mmol/L (137-145); Triglycerides 294 mg/dL (<150)
[2024-09-23] MEDS: DEXTROSE 10% 1,000 ML 100 ML IV CONT (04:25)
[2024-09-23 05:11] LABS: Glucose Point of Care 166 mg/dl (65-105)
[2024-09-23] MEDS: LEVOTHYROXINE SODIUM 100 MCG TABLET 200 MCG PO (06:02)
[2024-09-23 06:08] LABS: Glucose Point of Care 172 mg/dl (65-105)
[2024-09-23 07:00] LABS: Glucose Point of Care 168 mg/dl (65-105)
[2024-09-23 07:55] LABS: Glucose Point of Care 181 mg/dl (65-105)
[2024-09-23 09:05] LABS: Glucose Point of Care 173 mg/dl (65-105)
--- NOTE | 2024-09-23 09:09 | WPDINTPN ---
Progress Note: A&P Assessment and Plan (1) Acute on chronic pancreatitis: Code(s): K85.90 - Acute pancreatitis without necrosis or infection, unspecified; K86.1 - Other chronic pancreatitis Status: Acute Assessment and Plan: Patient has a history of chronic abdominal pain with intermittent exacerbation with development of acute on chronic pancreatitis. -09/22: Presented with abdominal pain, nausea vomiting, triglycerides more elevated to 1156 -for patient's insulin infusion 1 unit/hour for hypertriglyceridemia lumbar D10 infusion -currently on insulin infusion 1.5 units/hr along with D10 at 100 mL/hour -triglyceride levels is 294 this morning, will discontinue insulin and D10 infusions -continue fenofibrate, atorvastatin (2) Abdominal pain: Code(s): R10.9 - Unspecified abdominal pain Status: Acute Assessment and Plan: Dilaudid p.r.n. (3) CAD (coronary artery disease): Code(s): I25.10 - Atherosclerotic heart disease of [place] coronary artery without angina pectoris Status: Acute Assessment and Plan: continue aspirin and Brilinta (4) Type 2 diabetes mellitus: Qualifiers: Diabetes mellitus long chain beamer insulin use: with skilled nursing use Diabetes mellitus complication status: without complication Qualified Code(s): E11.9 - Type 2 diabetes mellitus without complications; Z79.4 - [facility] (current) use of insulin Code(s): E11.9 - Type 2 diabetes mellitus without complications Status: Chronic Assessment and Plan: Currently on insulin infusion for hypertriglyceridemia, -continue Accu-Cheks and sliding scale insulin -continue insulin infusion and D10 infusion (5) Nausea: Code(s): R11.0 - Nausea Status: Acute Assessment and Plan: P.r.n. 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 Qualified Code(s): E03.8 - Other specified hypothyroidism; E06.3 - Autoimmune thyroiditis Code(s): E03.9 - Hypothyroidism, unspecified Status: Acute Assessment and Plan: Continue home levothyroxine (7) GERD (gastroesophageal reflux disease): Qualifiers: Esophagitis presence: esophagitis presence not specified Qualified Code(s): K21.9 - Gastro-esophageal reflux disease without esophagitis Code(s): K21.9 - Gastro-esophageal reflux disease without esophagitis Status: Acute Assessment and Plan: Continue home PPI Plan DVT prophylaxis: Lovenox Stress ulcer prophylaxis: Protonix Nutrition: NPO Code Status: Full code Critical Care Time Spent: 31 minutes S once insulin infusion is off, patient may transfer out of the ICU to medical floor. Due to a high probability of clinically significant, life threatening deterioration, the patient required my highest level of preparedness to intervene emergently and I personally spent this critical care time directly and personally managing the patient. This critical care time included obtaining a history; examining the patient; pulse oximetry; ordering and review of studies; arranging urgent treatment with development of a management plan; evaluation of patient's response to treatment; frequent reassessment; and discussions with other providers. It was exclusive of separately billable procedures and treating other patients and teaching time. Please see Assessment and Plan section and the rest of the note for further information on patient assessment and treatment This dictation may have been done utilizing a voice recognition system. Attempts have been made to correct errors. However, there may be uncorrected grammatical, spelling, and recognitions errors present. Subjective Date/time seen: 09/23/24 09:09 Interval history: Reason for consult: Acute on chronic pancreatitis secondary to hypertriglyceridemia, abdominal pain, nausea, vomiting 09/23/2024: Patient seen and examined the ICU, is awake, alert, oriented x3. Continues to have abdominal pain, 6/10 in intensity, denies any nausea or vomiting at this time. Hemodynamically stable, urine output has been adequate, afebrile. Triglyceride levels are down to 294. Remains on insulin infusion 1.5 units/hr with D10 at 100 mL/hour Review of Systems Review of Systems: All systems reviewed & are unremarkable except as noted in HPI and below Exam Narrative: General: Pleasant female in no acute distress at this time HEENT:? Pupils equal and reactive, sclera is clear, dry oral mucosa Neck:? Supple Respiratory:? Clear to auscultation bilaterally home, no wheezing, adequate air entry Cardiac:? S1-S2 normal, regular rate and rhythm Abdomen:? Soft, tender to palpation in the epigastric and right upper quadrant region. Hypoactive bowel sounds, nondistended Extremities:? No cyanosis, clubbing or edema. Bilateral lower extremity are warm Neuro:? Patient is awake, alert, oriented, nonfocal, moves all extremities and follows simple commands Skin:? No skin lesions note Psych:? Normal mentation and affect Objective Data Vital Signs Vital Signs: Vital Signs - 24 hr 09/22/24 10:00 09/22/24 10:00 09/22/24 12:00 Temperature 97.7 F 97.7 F Pulse Rate 78 75 78 Respiratory Rate 12 10 L Blood Pressure 104/55 L 79/66 L Pulse Oximetry 99 98 Oxygen Delivery Oxygen Flow Rate 09/22/24 12:00 09/22/24 12:00 09/22/24 12:00 Temperature Pulse Rate 78 78 Respiratory Rate 10 L Blood Pressure 91/66 L Pulse Oximetry 98 Oxygen Delivery Nasal Cannula Oxygen Flow Rate 2 09/22/24 14:00 09/22/24 14:00 09/22/24 16:00 Temperature Pulse Rate 78 78 78 Respiratory Rate 16 16 Blood Pressure 103/66 Pulse Oximetry 98 98 Oxygen Delivery Nasal Cannula Oxygen Flow Rate 2 09/22/24 16:00 09/22/24 16:00 09/22/24 18:00 Temperature Pulse Rate 78 78 82 Respiratory Rate 10 L Blood Pressure 92/59 L Pulse Oximetry 98 Oxygen Delivery Oxygen Flow Rate 09/22/24 18:00 09/22/24 20:00 09/22/24 20:00 Temperature 97.9 F Pulse Rate 82 89 82 Respiratory Rate 16 14 Blood Pressure 103/68 98/63 L Pulse Oximetry 97 100 Oxygen Delivery Oxygen Flow Rate 09/22/24 20:15 09/22/24 20:55 09/22/24 22:00 Temperature Pulse Rate 89 76 Respiratory Rate 14 Blood Pressure Pulse Oximetry 100 91 Oxygen Delivery Nasal Cannula Nasal Cannula Oxygen Flow Rate 2 2 09/22/24 22:00 09/23/24 00:00 09/23/24 00:00 Temperature 97.8 F Pulse Rate 76 75 75 Respiratory Rate 12 10 L 10 L Blood Pressure 89/51 L 90/49 L Pulse Oximetry 96 98 98 Oxygen Delivery Nasal Cannula Oxygen Flow Rate 2 09/23/24 00:00 09/23/24 02:00 09/23/24 02:00 Temperature Pulse Rate 76 85 85 Respiratory Rate 12 Blood Pressure 96/68 L Pulse Oximetry 94 Oxygen Delivery Oxygen Flow Rate 09/23/24 04:00 09/23/24 04:15 09/23/24 04:15 Temperature 98 F Pulse Rate 79 79 83 Respiratory Rate 12 12 Blood Pressure 93/63 L Pulse Oximetry 97 97 Oxygen Delivery Nasal Cannula Oxygen Flow Rate 2 09/23/24 06:00 09/23/24 06:00 09/23/24 08:00 Temperature 98.2 F Pulse Rate 81 82 79 Respiratory Rate 12 10 L Blood Pressure 99/64 L 80/64 L Pulse Oximetry 98 96 Oxygen Delivery Oxygen Flow Rate 09/23/24 08:00 Temperature Pulse Rate 79 Respiratory Rate 10 L Blood Pressure Pulse Oximetry 96 Oxygen Delivery Nasal Cannula Oxygen Flow Rate 2 Intake/Output Intake/Output: Intake & Output 09/20/24 09/21/24 09/22/24 09/23/24 23:59 23:59 23:59 23:59 Intake Total 2065.0 1262.1 Output Total 1200 Balance 865.0 1262.1 Meds/Results Medications: Active Medications Generic Name Dose Route Start Last Admin Trade Name Freq PRN Reason Stop Dose Admin Acetaminophen 650 mg 09/22/24 03:51 Acetaminophen 325 Mg Tablet PO Q4H PRN Mild Pain (1-3) or Fever Aspirin 81 mg 09/22/24 10:45 09/22/24 11:24 Aspirin 81 Mg Chewable Tablet PO Not Given DAILY@0800 RAPHAEL Atorvastatin Calcium 80 mg 09/22/24 10:45 09/22/24 11:24 Atorvastatin 40 Mg Tablet PO Not Given DAILY RAPHAEL Bupropion HCl 150 mg 09/22/24 21:00 09/22/24 21:04 Bupropion Hcl Sr (12 Hr) 150 Mg Tab PO 150 mg HS RAPHAEL Administration Citalopram Hydrobromide 40 mg 09/24/24 09:00 Citalopram Hydrobromide 20 Mg Tablet PO DAILY RAPHAEL Dextrose 12.5 gm 09/22/24 07:48 Dextrose 50% 25 Gm/50 Ml Syringe IV PUSH PRN PRN Hypoglycemia Protocol Diphenhydramine HCl 25 mg 09/22/24 08:06 09/23/24 02:58 Diphenhydramine Hcl Inj 50 Mg/Ml Vial IV PUSH 25 mg Q6H PRN Administration Itching Docusate Sodium 100 mg 09/23/24 09:07 Docusate Sodium 100 Mg Capsule PO Q12HR PRN constipation Enoxaparin Sodium 40 mg 09/22/24 10:45 09/22/24 12:36 Enoxaparin 40 Mg/0.4 Ml Syringe SUB-Q Not Given DAILY [facility] Fenofibrate 145 mg 09/22/24 10:45 09/22/24 11:25 Fenofibrate Nanocrystallized 145 Mg Tablet PO Not Given QAM RAPHAEL Glucagon 1 mg 09/22/24 07:48 Glucagon For Inj 1 Mg Vial IM PRN PRN Hypoglycemia Protocol Glucose 15 gm 09/22/24 07:48 Glucose Oral Gel 15 Gm Of Glucse In 37.5 Gm Tube PO PRN PRN Hypoglycemia Protocol Heparin Sodium (Beef Lung) 50 units 09/23/24 09:00 Heparin Flush 50 Units/5 Ml Syringe IV PUSH QAM RAPHAEL Heparin Sodium (Beef Lung) 50 units 09/22/24 13:50 Heparin Flush 50 Units/5 Ml Syringe IV PUSH PRN PRN after intermittent infusion Heparin Sodium (Beef Lung) 50 units 09/22/24 13:50 Heparin Flush 50 Units/5 Ml Syringe IV PUSH PRN PRN after blood draws Heparin Sodium (Porcine) 500 units 09/22/24 13:50 Heparin Sodium Lock Flush 500 Units/5 Ml Syringe IV PUSH PRN PRN see comments below Hydromorphone HCl 1 mg 09/22/24 03:51 09/23/24 06:02 Hydromorphone Hcl Inj (*Crx) 2 Mg/Ml Vial IV PUSH 1 mg Q3H PRN Administration Pain Rated 7-10 Dextrose 1,000 mls @ 100 mls/hr 09/22/24 08:00 09/23/24 04:25 Dextrose 10% IV CONT 100 mls/hr .Q10H RAPHAEL Administration Insulin Human Regular 100 100 mls @ 1.5 mls/hr 09/22/24 09:00 09/23/24 07:00 units/ Sodium Chloride IV CONT 1.5 units/hr .Q24H RAPHAEL 1.5 mls/hr Infusion 1.5 UNITS/HR Levothyroxine Sodium 200 mcg 09/22/24 10:45 09/23/24 06:02 Levothyroxine Sodium 100 Mcg Tablet PO 200 mcg DAILY@0630 RAPHAEL Administration Lorazepam 1 mg 09/22/24 21:00 09/22/24 20:11 Lorazepam (*Crx) 1 Mg Tablet PO 1 mg HS RAPHAEL Administration Metoclopramide HCl 5 mg 09/23/24 09:10 Metoclopramide Hcl 5 Mg Tablet PO TIDWMEAL RAPHAEL Ondansetron HCl 4 mg 09/22/24 03:51 09/23/24 06:02 Ondansetron Inj 4 Mg/2 Ml Vial IV PUSH 4 mg Q4H PRN Administration Nausea Pantoprazole Sodium 40 mg 09/22/24 10:45 09/22/24 20:10 Pantoprazole 40 Mg Tablet PO 40 mg Q12HR RAPHAEL Administration Ticagrelor 90 mg 09/22/24 10:45 09/22/24 20:10 Ticagrelor 90 Mg Tablet PO 90 mg Q12HR RAPHAEL Administration Trazodone HCl 200 mg 09/23/24 21:00 Trazodone Hcl 50 Mg Tablet PO HS RAPHAEL Radiology Results: ITS Impressions Abdomen/Pelvis CT 09/22/24 05:29 Impression: Area of focal wall thickening and luminal narrowing at the ascending colon is felt to be most likely related to peristalsis. Focal neoplastic lesion would be a potential alternative consideration. Correlate clinically. Consider colonoscopy for further evaluation. No distinct evidence for bowel obstruction. Diffuse hepatic steatosis. Labs Labs: Laboratory Results - last 24 hr 09/22/24 09/22/24 09/22/24 09:57 11:01 11:30 WBC RBC Hgb Hct MCV MCH MCHC RDW Plt Count MPV Immature Gran % (Auto) Neut % (Auto) Lymph % (Auto) [place] % (Auto) Eos % (Auto) Baso % (Auto) Lymph # (Auto) [place] # (Auto) Eos # (Auto) Baso # (Auto) Abs Immat Gran (auto) Absolute Neuts (auto) Absolute Nucleated RBC Nucleated RBC % Sodium Potassium Chloride Carbon Dioxide Anion Gap BUN Creatinine Estim Creat Clear Calc Estimated GFR Glucose POC Capillary Glucose 138 H 149 H Calcium Phosphorus Magnesium Total Bilirubin AST ALT Alkaline Phosphatase Total Protein Albumin Triglycerides 500 H 09/22/24 09/22/24 09/22/24 11:52 13:09 14:02 WBC RBC Hgb Hct MCV MCH MCHC RDW Plt Count MPV Immature Gran % (Auto) Neut % (Auto) Lymph % (Auto) [place] % (Auto) Eos % (Auto) Baso % (Auto) Lymph # (Auto) [place] # (Auto) Eos # (Auto) Baso # (Auto) Abs Immat Gran (auto) Absolute Neuts (auto) Absolute Nucleated RBC Nucleated RBC % Sodium Potassium Chloride Carbon Dioxide Anion Gap BUN Creatinine Estim Creat Clear Calc Estimated GFR Glucose POC Capillary Glucose 166 H 170 H 189 H Calcium Phosphorus Magnesium Total Bilirubin AST ALT Alkaline Phosphatase Total Protein Albumin Triglycerides 09/22/24 09/22/24 09/22/24 15:20 16:04 17:09 WBC RBC Hgb Hct MCV MCH MCHC RDW Plt Count MPV Immature Gran % (Auto) Neut % (Auto) Lymph % (Auto) [place] % (Auto) Eos % (Auto) Baso % (Auto) Lymph # (Auto) [place] # (Auto) Eos # (Auto) Baso # (Auto) Abs Immat Gran (auto) Absolute Neuts (auto) Absolute Nucleated RBC Nucleated RBC % Sodium Potassium Chloride Carbon Dioxide Anion Gap BUN Creatinine Estim Creat Clear Calc Estimated GFR Glucose POC Capillary Glucose 209 H 185 H 177 H Calcium Phosphorus Magnesium Total Bilirubin AST ALT Alkaline Phosphatase Total Protein Albumin Triglycerides 09/22/24 09/22/24 09/22/24 18:05 19:07 20:09 WBC RBC Hgb Hct MCV MCH MCHC RDW Plt Count MPV Immature Gran % (Auto) Neut % (Auto) Lymph % (Auto) [place] % (Auto) Eos % (Auto) Baso % (Auto) Lymph # (Auto) [place] # (Auto) Eos # (Auto) Baso # (Auto) Abs Immat Gran (auto) Absolute Neuts (auto) Absolute Nucleated RBC Nucleated RBC % Sodium Potassium Chloride Carbon Dioxide Anion Gap BUN Creatinine Estim Creat Clear Calc Estimated GFR Glucose POC Capillary Glucose 168 H 159 H 154 H Calcium Phosphorus Magnesium Total Bilirubin AST ALT Alkaline Phosphatase Total Protein Albumin Triglycerides 09/22/24 09/22/24 09/22/24 21:02 22:07 23:05 WBC RBC Hgb Hct MCV MCH MCHC RDW Plt Count MPV Immature Gran % (Auto) Neut % (Auto) Lymph % (Auto) [place] % (Auto) Eos % (Auto) Baso % (Auto) Lymph # (Auto) [place] # (Auto) Eos # (Auto) Baso # (Auto) Abs Immat Gran (auto) Absolute Neuts (auto) Absolute Nucleated RBC Nucleated RBC % Sodium Potassium Chloride Carbon Dioxide Anion Gap BUN Creatinine Estim Creat Clear Calc Estimated GFR Glucose POC Capillary Glucose 157 H 162 H 160 H Calcium Phosphorus Magnesium Total Bilirubin AST ALT Alkaline Phosphatase Total Protein Albumin Triglycerides 09/22/24 09/23/24 09/23/24 23:20 00:02 01:03 WBC RBC Hgb Hct MCV MCH MCHC RDW Plt Count MPV Immature Gran % (Auto) Neut % (Auto) Lymph % (Auto) [place] % (Auto) Eos % (Auto) Baso % (Auto) Lymph # (Auto) [place] # (Auto) Eos # (Auto) Baso # (Auto) Abs Immat Gran (auto) Absolute Neuts (auto) Absolute Nucleated RBC Nucleated RBC % Sodium Potassium Chloride Carbon Dioxide Anion Gap BUN Creatinine Estim Creat Clear Calc Estimated GFR Glucose POC Capillary Glucose 177 H 154 H Calcium Phosphorus Magnesium Total Bilirubin AST ALT Alkaline Phosphatase Total Protein Albumin Triglycerides 283 H 09/23/24 09/23/24 09/23/24 02:01 02:58 04:05 WBC 7.4 RBC 3.86 L Hgb 11.3 L Hct 36.0 L MCV 93.3 MCH 29.3 MCHC 31.4 L RDW 15.0 H Plt Count 182 MPV 9.1 Immature Gran % (Auto) 0.7 H Neut % (Auto) 61.2 Lymph % (Auto) 30.6 [place] % (Auto) 6.3 Eos % (Auto) 0.7 Baso % (Auto) 0.5 Lymph # (Auto) 2.27 [place] # (Auto) 0.5 Eos # (Auto) 0.1 Baso # (Auto) 0.0 Abs Immat Gran (auto) 0.05 H Absolute Neuts (auto) 4.6 Absolute Nucleated RBC 0.000 Nucleated RBC % 0.0 Sodium 135 L Potassium 3.7 Chloride 102 Carbon Dioxide 24 Anion Gap 9 BUN 12 Creatinine 0.66 L Estim Creat Clear Calc 94 Estimated GFR > 60 Glucose 151 H POC Capillary Glucose 170 H 186 H Calcium 8.3 L Phosphorus 4.1 Magnesium 1.9 Total Bilirubin 0.3 AST 27 ALT 18 Alkaline Phosphatase 61 Total Protein 7.0 Albumin 4.2 Triglycerides 294 H 09/23/24 09/23/24 09/23/24 04:15 05:09 06:01 WBC RBC Hgb Hct MCV MCH MCHC RDW Plt Count MPV Immature Gran % (Auto) Neut % (Auto) Lymph % (Auto) [place] % (Auto) Eos % (Auto) Baso % (Auto) Lymph # (Auto) [place] # (Auto) Eos # (Auto) Baso # (Auto) Abs Immat Gran (auto) Absolute Neuts (auto) Absolute Nucleated RBC Nucleated RBC % Sodium Potassium Chloride Carbon Dioxide Anion Gap BUN Creatinine Estim Creat Clear Calc Estimated GFR Glucose POC Capillary Glucose 178 H 166 H 172 H Calcium Phosphorus Magnesium Total Bilirubin AST ALT Alkaline Phosphatase Total Protein Albumin Triglycerides 09/23/24 09/23/24 09/23/24 06:59 07:51 09:03 WBC RBC Hgb Hct MCV MCH MCHC RDW Plt Count MPV Immature Gran % (Auto) Neut % (Auto) Lymph % (Auto) [place] % (Auto) Eos % (Auto) Baso % (Auto) Lymph # (Auto) [place] # (Auto) Eos # (Auto) Baso # (Auto) Abs Immat Gran (auto) Absolute Neuts (auto) Absolute Nucleated RBC Nucleated RBC % Sodium Potassium Chloride Carbon Dioxide Anion Gap BUN Creatinine Estim Creat Clear Calc Estimated GFR Glucose POC Capillary Glucose 168 H 181 H 173 H Calcium Phosphorus Magnesium Total Bilirubin AST ALT Alkaline Phosphatase Total Protein Albumin Triglycerides
[2024-09-23] MEDS: ENOXAPARIN 40 MG/0.4 ML SYRINGE SUB-Q (09:19)
[2024-09-23] MEDS: TICAGRELOR 90 MG TABLET PO ×2 (09:19→22:22)
[2024-09-23] MEDS: ASPIRIN 81 MG CHEWABLE TABLET PO (09:19)
[2024-09-23] MEDS: ATORVASTATIN 40 MG TABLET 80 MG PO (09:19)
[2024-09-23] MEDS: PANTOPRAZOLE 40 MG TABLET PO ×2 (09:19→22:22)
[2024-09-23] MEDS: FENOFIBRATE NANOCRYSTALLIZED 145 MG TABLET PO (09:19)
[2024-09-23] MEDS: HEPARIN SODIUM LOCK FLUSH 500 UNITS/5 ML SYRINGE IV PUSH (11:00)
[2024-09-23 11:55] LABS: Triglycerides 365 mg/dL (<150)
[2024-09-23] MEDS: CITALOPRAM HYDROBROMIDE 20 MG TABLET 40 MG PO (12:19)
[2024-09-23] MEDS: METOCLOPRAMIDE HCL 5 MG TABLET PO ×2 (12:20→16:26)
--- NOTE | 2024-09-23 15:32 | P.PNIM_ITS ---
Progress Note: A&P Assessment and Plan (1) Acute on chronic pancreatitis: Code(s): K85.90 - Acute pancreatitis without necrosis or infection, unspecified; K86.1 - Other chronic pancreatitis Status: Acute (2) Abdominal pain: Code(s): R10.9 - Unspecified abdominal pain Status: Acute (3) CAD (coronary artery disease): Code(s): I25.10 - Atherosclerotic heart disease of [place] coronary artery without angina pectoris Status: Acute (4) Type 2 diabetes mellitus: Qualifiers: Diabetes mellitus shelter insulin use: with long term care administrator use Diabetes mellitus complication status: without complication Qualified Code(s): E11.9 - Type 2 diabetes mellitus without complications; Z79.4 - correction (current) use of insulin Code(s): E11.9 - Type 2 diabetes mellitus without complications Status: Chronic (5) Nausea: Code(s): R11.0 - Nausea Status: Acute (6) Hypothyroidism: Qualifiers: 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 Qualified Code(s): E03.8 - Other specified hypothyroidism; E06.3 - Autoimmune thyroiditis Code(s): E03.9 - Hypothyroidism, unspecified Status: Acute (7) GERD (gastroesophageal reflux disease): Qualifiers: Esophagitis presence: esophagitis presence not specified Qualified Code(s): K21.9 - Gastro-esophageal reflux disease without esophagitis Code(s): K21.9 - Gastro-esophageal reflux disease without esophagitis Status: Acute Plan patient with history of chronic pancreatitis 2/2 hypertriglycemic presented with epigastric pain and elevated triglycerides of 1156, blood sugar of 297 and urine showing trace of ketone patient was admitted into ICU and senior project accountant had started patient on low dose insulin drip 1units per hour and being hydrated, today patient tryglycerides are now close to normal patient clinical symptoms are improving. however patient is still complaining of abdominal pain and nausea, may possibly discharge patient tomorrow. Subjective Date/time seen: 09/23/24 15:32 Interval history: ER-HPI narrative: Pt is a 48-year-old female who presents to the ER with abdominal pain. She has a history of gastroparesis and chronic pancreatitis secondary to hypertriglyceridemia. Pt is well known to our emergency department. She reports her symptoms started yesterday. Patient endorses nausea and vomiting associated with the left upper quadrant pain. She rates her pain at a 7 to 8/10. She denies any lower extremity edema, urinary symptoms, or recent fevers. Patient reports yesterday she had constipation and today she has had diarrhea. She has a history of diabetes, hypothyroidism, hyperlipidemia, and mental health diagnoses. patient with history of chronic pancreatitis 2/2 hypertriglycemic presented with epigastric pain and elevated triglycerides of 1156, blood sugar of 297 and urine showing trace of ketone patient was admitted into ICU and senior project accountant had started patient on low dose insulin drip 1units per hour and being hydrated, today patient tryglycerides are now close to normal patient clinical symptoms are improving. however patient is still complaining of abdominal pain and nausea, may possibly discharge patient tomorrow. Review of Systems Review of Systems: All systems reviewed & are unremarkable except as noted in HPI and below Exam Narrative: Patient is comfortable, NAD HEENT: eyes are clear and none icteric LUNGS:CTA HEART: RR S1S2 ABD: BS+, Soft and nontender Lower extremities: no edema SKIN: nonjaundiced Neuro: grossly intact. Objective Data Vital Signs Vital Signs: Vital Signs - 24 hr 09/22/24 16:00 09/22/24 16:00 09/22/24 16:00 Temperature Pulse Rate 78 78 78 Respiratory Rate 16 10 L Blood Pressure 92/59 L Pulse Oximetry 98 98 Oxygen Delivery Nasal Cannula Oxygen Flow Rate 2 09/22/24 18:00 09/22/24 18:00 09/22/24 20:00 Temperature 36.6 C Pulse Rate 82 82 89 Respiratory Rate 16 14 Blood Pressure 103/68 98/63 L Pulse Oximetry 97 100 Oxygen Delivery Oxygen Flow Rate 09/22/24 20:00 09/22/24 20:15 09/22/24 20:55 Temperature Pulse Rate 82 89 Respiratory Rate 14 Blood Pressure Pulse Oximetry 100 91 Oxygen Delivery Nasal Cannula Nasal Cannula Oxygen Flow Rate 2 2 09/22/24 22:00 09/22/24 22:00 09/23/24 00:00 Temperature 36.6 C Pulse Rate 76 76 75 Respiratory Rate 12 10 L Blood Pressure 89/51 L 90/49 L Pulse Oximetry 96 98 Oxygen Delivery Oxygen Flow Rate 09/23/24 00:00 09/23/24 00:00 09/23/24 02:00 Temperature Pulse Rate 75 76 85 Respiratory Rate 10 L Blood Pressure Pulse Oximetry 98 Oxygen Delivery Nasal Cannula Oxygen Flow Rate 2 09/23/24 02:00 09/23/24 04:00 09/23/24 04:15 Temperature 36.6 C Pulse Rate 85 79 79 Respiratory Rate 12 12 12 Blood Pressure 96/68 L 93/63 L Pulse Oximetry 94 97 97 Oxygen Delivery Nasal Cannula Oxygen Flow Rate 2 09/23/24 04:15 09/23/24 06:00 09/23/24 06:00 Temperature Pulse Rate 83 81 82 Respiratory Rate 12 Blood Pressure 99/64 L Pulse Oximetry 98 Oxygen Delivery Oxygen Flow Rate 09/23/24 08:00 09/23/24 08:00 09/23/24 08:00 Temperature 36.8 C Pulse Rate 79 79 77 Respiratory Rate 10 L 10 L Blood Pressure 80/64 L Pulse Oximetry 96 96 Oxygen Delivery Nasal Cannula Oxygen Flow Rate 2 09/23/24 10:00 09/23/24 10:00 09/23/24 13:50 Temperature 36.8 C 36.5 C Pulse Rate 83 78 82 Respiratory Rate 10 L 12 Blood Pressure 94/67 L 93/54 L Pulse Oximetry 96 96 Oxygen Delivery Oxygen Flow Rate Intake/Output Intake/Output: Intake & Output 09/20/24 09/21/24 09/22/24 09/23/24 23:59 23:59 23:59 23:59 Intake Total 2065.0 1265.2 Output Total 1200 Balance 865.0 1265.2 Meds/Results Medications: Active Medications Generic Name Dose Route Start Last Admin Trade Name Freq PRN Reason Stop Dose Admin Acetaminophen 650 mg 09/22/24 03:51 Acetaminophen 325 Mg Tablet PO Q4H PRN Mild Pain (1-3) or Fever Aspirin 81 mg 09/22/24 10:45 09/23/24 09:19 Aspirin 81 Mg Chewable Tablet PO 81 mg DAILY@0800 RAPHAEL Administration Atorvastatin Calcium 80 mg 09/22/24 10:45 09/23/24 09:19 Atorvastatin 40 Mg Tablet PO 80 mg DAILY RAPHAEL Administration Bupropion HCl 150 mg 09/22/24 21:00 09/22/24 21:04 Bupropion Hcl Sr (12 Hr) 150 Mg Tab PO 150 mg HS RAPHAEL Administration Citalopram Hydrobromide 40 mg 09/23/24 09:30 09/23/24 12:19 Citalopram Hydrobromide 20 Mg Tablet PO 40 mg DAILY RAPHAEL Administration Dextrose 12.5 gm 09/22/24 07:48 Dextrose 50% 25 Gm/50 Ml Syringe IV PUSH PRN PRN Hypoglycemia Protocol Diphenhydramine HCl 25 mg 09/22/24 08:06 09/23/24 12:20 Diphenhydramine Hcl Inj 50 Mg/Ml Vial IV PUSH 25 mg Q6H PRN Administration Itching Docusate Sodium 100 mg 09/23/24 09:07 Docusate Sodium 100 Mg Capsule PO Q12HR PRN constipation Enoxaparin Sodium 40 mg 09/22/24 10:45 09/23/24 09:19 Enoxaparin 40 Mg/0.4 Ml Syringe SUB-Q 40 mg DAILY RAPHAEL Administration Fenofibrate 145 mg 09/22/24 10:45 09/23/24 09:19 Fenofibrate Nanocrystallized 145 Mg Tablet PO 145 mg QAM RAPHAEL Administration Glucagon 1 mg 09/22/24 07:48 Glucagon For Inj 1 Mg Vial IM PRN PRN Hypoglycemia Protocol Glucose 15 gm 09/22/24 07:48 Glucose Oral Gel 15 Gm Of Glucse In 37.5 Gm Tube PO PRN PRN Hypoglycemia Protocol Heparin Sodium (Beef Lung) 50 units 09/23/24 09:00 Heparin Flush 50 Units/5 Ml Syringe IV PUSH QAM RAPHAEL Heparin Sodium (Beef Lung) 50 units 09/22/24 13:50 Heparin Flush 50 Units/5 Ml Syringe IV PUSH PRN PRN after intermittent infusion Heparin Sodium (Beef Lung) 50 units 09/22/24 13:50 Heparin Flush 50 Units/5 Ml Syringe IV PUSH PRN PRN after blood draws Heparin Sodium (Porcine) 500 units 09/22/24 13:50 Heparin Sodium Lock Flush 500 Units/5 Ml Syringe IV PUSH PRN PRN see comments below Hydromorphone HCl 1 mg 09/22/24 03:51 09/23/24 15:13 Hydromorphone Hcl Inj (*Crx) 2 Mg/Ml Vial IV PUSH 1 mg Q3H PRN Administration Pain Rated 7-10 Levothyroxine Sodium 200 mcg 09/22/24 10:45 09/23/24 06:02 Levothyroxine Sodium 100 Mcg Tablet PO 200 mcg DAILY@0630 RAPHAEL Administration Lorazepam 1 mg 09/22/24 21:00 09/22/24 20:11 Lorazepam (*Crx) 1 Mg Tablet PO 1 mg HS RAPHAEL Administration Metoclopramide HCl 5 mg 09/23/24 09:10 09/23/24 12:20 Metoclopramide Hcl 5 Mg Tablet PO 5 mg TIDWM RAPHAEL Administration Ondansetron HCl 4 mg 09/22/24 03:51 09/23/24 12:20 Ondansetron Inj 4 Mg/2 Ml Vial IV PUSH 4 mg Q4H PRN Administration Nausea Pantoprazole Sodium 40 mg 09/22/24 10:45 09/23/24 09:19 Pantoprazole 40 Mg Tablet PO 40 mg Q12HR RAPHAEL Administration Ticagrelor 90 mg 09/22/24 10:45 09/23/24 09:19 Ticagrelor 90 Mg Tablet PO 90 mg Q12HR RAPHAEL Administration Trazodone HCl 200 mg 09/23/24 21:00 Trazodone Hcl 50 Mg Tablet PO HS RAPHAEL Radiology Results: ITS Impressions Abdomen/Pelvis CT 09/22/24 05:29 Impression: Area of focal wall thickening and luminal narrowing at the ascending colon is felt to be most likely related to peristalsis. Focal neoplastic lesion would be a potential alternative consideration. Correlate clinically. Consider colonoscopy for further evaluation. No distinct evidence for bowel obstruction. Diffuse hepatic steatosis. Labs Labs: Laboratory Results - last 24 hr 09/22/24 09/22/24 09/22/24 16:04 17:09 18:05 WBC RBC Hgb Hct MCV MCH MCHC RDW Plt Count MPV Immature Gran % (Auto) Neut % (Auto) Lymph % (Auto) [place] % (Auto) Eos % (Auto) Baso % (Auto) Lymph # (Auto) [place] # (Auto) Eos # (Auto) Baso # (Auto) Abs Immat Gran (auto) Absolute Neuts (auto) Absolute Nucleated RBC Nucleated RBC % Sodium Potassium Chloride Carbon Dioxide Anion Gap BUN Creatinine Estim Creat Clear Calc Estimated GFR Glucose POC Capillary Glucose 185 H 177 H 168 H Calcium Phosphorus Magnesium Total Bilirubin AST ALT Alkaline Phosphatase Total Protein Albumin Triglycerides 09/22/24 09/22/24 09/22/24 19:07 20:09 21:02 WBC RBC Hgb Hct MCV MCH MCHC RDW Plt Count MPV Immature Gran % (Auto) Neut % (Auto) Lymph % (Auto) [place] % (Auto) Eos % (Auto) Baso % (Auto) Lymph # (Auto) [place] # (Auto) Eos # (Auto) Baso # (Auto) Abs Immat Gran (auto) Absolute Neuts (auto) Absolute Nucleated RBC Nucleated RBC % Sodium Potassium Chloride Carbon Dioxide Anion Gap BUN Creatinine Estim Creat Clear Calc Estimated GFR Glucose POC Capillary Glucose 159 H 154 H 157 H Calcium Phosphorus Magnesium Total Bilirubin AST ALT Alkaline Phosphatase Total Protein Albumin Triglycerides 09/22/24 09/22/24 09/22/24 22:07 23:05 23:20 WBC RBC Hgb Hct MCV MCH MCHC RDW Plt Count MPV Immature Gran % (Auto) Neut % (Auto) Lymph % (Auto) [place] % (Auto) Eos % (Auto) Baso % (Auto) Lymph # (Auto) [place] # (Auto) Eos # (Auto) Baso # (Auto) Abs Immat Gran (auto) Absolute Neuts (auto) Absolute Nucleated RBC Nucleated RBC % Sodium Potassium Chloride Carbon Dioxide Anion Gap BUN Creatinine Estim Creat Clear Calc Estimated GFR Glucose POC Capillary Glucose 162 H 160 H Calcium Phosphorus Magnesium Total Bilirubin AST ALT Alkaline Phosphatase Total Protein Albumin Triglycerides 283 H 09/23/24 09/23/24 09/23/24 00:02 01:03 02:01 WBC RBC Hgb Hct MCV MCH MCHC RDW Plt Count MPV Immature Gran % (Auto) Neut % (Auto) Lymph % (Auto) [place] % (Auto) Eos % (Auto) Baso % (Auto) Lymph # (Auto) [place] # (Auto) Eos # (Auto) Baso # (Auto) Abs Immat Gran (auto) Absolute Neuts (auto) Absolute Nucleated RBC Nucleated RBC % Sodium Potassium Chloride Carbon Dioxide Anion Gap BUN Creatinine Estim Creat Clear Calc Estimated GFR Glucose POC Capillary Glucose 177 H 154 H 170 H Calcium Phosphorus Magnesium Total Bilirubin AST ALT Alkaline Phosphatase Total Protein Albumin Triglycerides 09/23/24 09/23/24 09/23/24 02:58 04:05 04:15 WBC 7.4 RBC 3.86 L Hgb 11.3 L Hct 36.0 L MCV 93.3 MCH 29.3 MCHC 31.4 L RDW 15.0 H Plt Count 182 MPV 9.1 Immature Gran % (Auto) 0.7 H Neut % (Auto) 61.2 Lymph % (Auto) 30.6 [place] % (Auto) 6.3 Eos % (Auto) 0.7 Baso % (Auto) 0.5 Lymph # (Auto) 2.27 [place] # (Auto) 0.5 Eos # (Auto) 0.1 Baso # (Auto) 0.0 Abs Immat Gran (auto) 0.05 H Absolute Neuts (auto) 4.6 Absolute Nucleated RBC 0.000 Nucleated RBC % 0.0 Sodium 135 L Potassium 3.7 Chloride 102 Carbon Dioxide 24 Anion Gap 9 BUN 12 Creatinine 0.66 L Estim Creat Clear Calc 94 Estimated GFR > 60 Glucose 151 H POC Capillary Glucose 186 H 178 H Calcium 8.3 L Phosphorus 4.1 Magnesium 1.9 Total Bilirubin 0.3 AST 27 ALT 18 Alkaline Phosphatase 61 Total Protein 7.0 Albumin 4.2 Triglycerides 294 H 09/23/24 09/23/24 09/23/24 05:09 06:01 06:59 WBC RBC Hgb Hct MCV MCH MCHC RDW Plt Count MPV Immature Gran % (Auto) Neut % (Auto) Lymph % (Auto) [place] % (Auto) Eos % (Auto) Baso % (Auto) Lymph # (Auto) [place] # (Auto) Eos # (Auto) Baso # (Auto) Abs Immat Gran (auto) Absolute Neuts (auto) Absolute Nucleated RBC Nucleated RBC % Sodium Potassium Chloride Carbon Dioxide Anion Gap BUN Creatinine Estim Creat Clear Calc Estimated GFR Glucose POC Capillary Glucose 166 H 172 H 168 H Calcium Phosphorus Magnesium Total Bilirubin AST ALT Alkaline Phosphatase Total Protein Albumin Triglycerides 09/23/24 09/23/24 09/23/24 07:51 09:03 11:04 WBC RBC Hgb Hct MCV MCH MCHC RDW Plt Count MPV Immature Gran % (Auto) Neut % (Auto) Lymph % (Auto) [place] % (Auto) Eos % (Auto) Baso % (Auto) Lymph # (Auto) [place] # (Auto) Eos # (Auto) Baso # (Auto) Abs Immat Gran (auto) Absolute Neuts (auto) Absolute Nucleated RBC Nucleated RBC % Sodium Potassium Chloride Carbon Dioxide Anion Gap BUN Creatinine Estim Creat Clear Calc Estimated GFR Glucose POC Capillary Glucose 181 H 173 H Calcium Phosphorus Magnesium Total Bilirubin AST ALT Alkaline Phosphatase Total Protein Albumin Triglycerides 365 H
[2024-09-23 17:15] LABS: Glucose Point of Care 231 mg/dl (65-105)
[2024-09-23 21:35] LABS: Glucose Point of Care 246 mg/dl (65-105)
[2024-09-23] MEDS: traZODone HCL 50 MG TABLET 200 MG PO (22:21)
[2024-09-23] MEDS: buPROPion HCL SR (12 HR) 150 MG TAB PO (22:22)
[2024-09-23] MEDS: LORazepam (*CRX) 1 MG TABLET PO (23:16)
[2024-09-24 00:09] LABS: Triglycerides 781 mg/dL (<150)
[2024-09-24] MEDS: HYDROmorphone HCL INJ (*CRX) 2 MG/ML VIAL 1 MG IV PUSH ×6 (03:40→21:43)
[2024-09-24 05:55] VITALS: BP 109/60; PULSE 79; RESP 16; TEMP 36.4; O2SAT 95
[2024-09-24] MEDS: LEVOTHYROXINE SODIUM 100 MCG TABLET 200 MCG PO (06:06)
[2024-09-24 06:20] LABS: Hemoglobin 10.6 g/dL (12.0-15.0); Mean Corpuscular HGB Conc 31.2 g/dl (32-36); Mean Corpuscular Hemoglobin 29.1 pg (26-34); Mean Corpuscular Volume 93.4 fl (80-100); Mean Platelet Volume 9.9 fl (7.4-10.4); Platelet Count Result 181 k/mm3 (150-375); Red Blood Count 3.64 M/mm3 (4.2-5.4); White Blood Count 5.3 K/mm3 (4.5-10.0)
[2024-09-24 06:36] LABS: Alanine Aminotransferase 17 U/L (6-35); Albumin Level 3.7 g/dL (3.5-5.1); Alkaline Phosphatase 69 U/L (38-126); Anion Gap 6 mmol/L (4-12); Aspartate Amino Transferase 23 U/L (14-36); Bilirubin,Total 0.3 mg/dL (0.2-1.3); Blood Urea Nitrogen 6 mg/dL (7-17); Calcium 8.8 mg/dL (8.4-10.2); Carbon Dioxide 27 mmol/L (22-30); Chloride 104 mmol/L (98-107); Estimated CRCL calculation 106 ml/min; Estimated Glomerular Filt Rate > 60; Glucose 184 mg/dL (65-110); Magnesium 1.8 mg/dL (1.6-2.3); Potassium 3.7 mmol/L (3.4-5.0); Sodium 137 mmol/L (137-145)
[2024-09-24 07:54] LABS: Glucose Point of Care 195 mg/dl (65-105)
[2024-09-24] MEDS: TICAGRELOR 90 MG TABLET PO ×2 (08:07→20:41)
[2024-09-24] MEDS: ASPIRIN 81 MG CHEWABLE TABLET PO (08:07)
[2024-09-24] MEDS: FENOFIBRATE NANOCRYSTALLIZED 145 MG TABLET PO (08:08)
[2024-09-24] MEDS: ATORVASTATIN 40 MG TABLET 80 MG PO (08:08)
[2024-09-24] MEDS: METOCLOPRAMIDE HCL 5 MG TABLET PO ×3 (08:08→17:34)
[2024-09-24] MEDS: CITALOPRAM HYDROBROMIDE 20 MG TABLET 40 MG PO (08:08)
[2024-09-24] MEDS: PANTOPRAZOLE 40 MG TABLET PO ×2 (08:08→20:41)
[2024-09-24] MEDS: ENOXAPARIN 40 MG/0.4 ML SYRINGE SUB-Q (08:08)
[2024-09-24] MEDS: ONDANSETRON INJ 4 MG/2 ML VIAL IV PUSH ×3 (08:16→21:44)
[2024-09-24 10:58] LABS: Triglycerides 404 mg/dL (<150)
[2024-09-24] MEDS: diphenhydrAMINE HCl INJ 50 MG/ML VIAL 25 MG IV PUSH ×2 (12:18→20:43)
[2024-09-24 12:26] LABS: Glucose Point of Care 186 mg/dl (65-105)
--- NOTE | 2024-09-24 13:54 | PM.IMPN ---
Progress Note: A&P Assessment and Plan (1) Acute on chronic pancreatitis: Code(s): K85.90 - Acute pancreatitis without necrosis or infection, unspecified; K86.1 - Other chronic pancreatitis Status: Acute (2) Abdominal pain: Code(s): R10.9 - Unspecified abdominal pain Status: Acute (3) CAD (coronary artery disease): Code(s): I25.10 - Atherosclerotic heart disease of [place] coronary artery without angina pectoris Status: Acute (4) Type 2 diabetes mellitus: Qualifiers: Diabetes mellitus residential insulin use: with exterminator helper use Diabetes mellitus complication status: without complication Qualified Code(s): E11.9 - Type 2 diabetes mellitus without complications; Z79.4 - residential (current) use of insulin Code(s): E11.9 - Type 2 diabetes mellitus without complications Status: Chronic (5) Nausea: Code(s): R11.0 - Nausea Status: Acute (6) Hypothyroidism: Qualifiers: 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 Qualified Code(s): E03.8 - Other specified hypothyroidism; E06.3 - Autoimmune thyroiditis Code(s): E03.9 - Hypothyroidism, unspecified Status: Acute (7) GERD (gastroesophageal reflux disease): Qualifiers: Esophagitis presence: esophagitis presence not specified Qualified Code(s): K21.9 - Gastro-esophageal reflux disease without esophagitis Code(s): K21.9 - Gastro-esophageal reflux disease without esophagitis Status: Acute Plan patient with history of chronic pancreatitis 2/2 hypertriglycemic presented with epigastric pain and elevated triglycerides of 1156, blood sugar of 297 and urine showing trace of ketone patient was admitted into ICU and engraver optical frames had started patient on low dose insulin drip 1units per hour and being hydrated, today patient tryglycerides are elevated today repeat levels did show drop in the levels however patient is still complaining of abdominal pain and nausea, may possibly discharge patient tomorrow. Subjective Date/time seen: 09/24/24 13:54 Interval history: ER-HPI narrative: Pt is a 48-year-old female who presents to the ER with abdominal pain. She has a history of gastroparesis and chronic pancreatitis secondary to hypertriglyceridemia. Pt is well known to our emergency department. She reports her symptoms started yesterday. Patient endorses nausea and vomiting associated with the left upper quadrant pain. She rates her pain at a 7 to 8/10. She denies any lower extremity edema, urinary symptoms, or recent fevers. Patient reports yesterday she had constipation and today she has had diarrhea. She has a history of diabetes, hypothyroidism, hyperlipidemia, and mental health diagnoses. patient with history of chronic pancreatitis 2/2 hypertriglycemic presented with epigastric pain and elevated triglycerides of 1156, blood sugar of 297 and urine showing trace of ketone patient was admitted into ICU and engraver optical frames had started patient on low dose insulin drip 1units per hour and being hydrated, today patient tryglycerides are elevated today repeat levels did show drop in the levels however patient is still complaining of abdominal pain and nausea, may possibly discharge patient tomorrow. Review of Systems Review of Systems: All systems reviewed & are unremarkable except as noted in HPI and below Exam Narrative: Patient is comfortable, NAD HEENT: eyes are clear and none icteric LUNGS:CTA HEART: RR S1S2 ABD: BS+, Soft and nontender Lower extremities: no edema SKIN: nonjaundiced Neuro: grossly intact. Objective Data Vital Signs Vital Signs: Vital Signs - 24 hr 09/23/24 16:00 09/23/24 20:00 09/23/24 20:41 Temperature 36.8 C 36.6 C Pulse Rate 76 86 Respiratory Rate 15 16 Blood Pressure 95/69 L 99/54 L Pulse Oximetry 96 97 Oxygen Delivery Room Air 09/24/24 05:55 09/24/24 08:10 Temperature 36.4 C Pulse Rate 79 Respiratory Rate 16 Blood Pressure 109/60 Pulse Oximetry 95 Oxygen Delivery Room Air Intake/Output Intake/Output: Intake & Output 09/21/24 09/22/24 09/23/24 09/24/24 23:59 23:59 23:59 23:59 Intake Total 2065.0 1487.2 300 Output Total 1200 Balance 865.0 1487.2 300 Meds/Results Medications: Active Medications Generic Name Dose Route Start Last Admin Trade Name Freq PRN Reason Stop Dose Admin Acetaminophen 650 mg 09/22/24 03:51 Acetaminophen 325 Mg Tablet PO Q4H PRN Mild Pain (1-3) or Fever Aspirin 81 mg 09/22/24 10:45 09/24/24 08:07 Aspirin 81 Mg Chewable Tablet PO 81 mg DAILY@0800 RAPHAEL Administration Atorvastatin Calcium 80 mg 09/22/24 10:45 09/24/24 08:08 Atorvastatin 40 Mg Tablet PO 80 mg DAILY RAPHAEL Administration Bupropion HCl 150 mg 09/22/24 21:00 09/23/24 22:22 Bupropion Hcl Sr (12 Hr) 150 Mg Tab PO 150 mg HS RAPHAEL Administration Citalopram Hydrobromide 40 mg 09/23/24 09:30 09/24/24 08:08 Citalopram Hydrobromide 20 Mg Tablet PO 40 mg DAILY RAPHAEL Administration Dextrose 12.5 gm 09/22/24 07:48 Dextrose 50% 25 Gm/50 Ml Syringe IV PUSH PRN PRN Hypoglycemia Protocol Diphenhydramine HCl 25 mg 09/22/24 08:06 09/24/24 12:18 Diphenhydramine Hcl Inj 50 Mg/Ml Vial IV PUSH 25 mg Q6H PRN Administration Itching Docusate Sodium 100 mg 09/23/24 09:07 Docusate Sodium 100 Mg Capsule PO Q12HR PRN constipation Enoxaparin Sodium 40 mg 09/22/24 10:45 09/24/24 08:08 Enoxaparin 40 Mg/0.4 Ml Syringe SUB-Q 40 mg DAILY RAPHAEL Administration Fenofibrate 145 mg 09/22/24 10:45 09/24/24 08:08 Fenofibrate Nanocrystallized 145 Mg Tablet PO 145 mg QAM RAPHAEL Administration Glucagon 1 mg 09/22/24 07:48 Glucagon For Inj 1 Mg Vial IM PRN PRN Hypoglycemia Protocol Glucose 15 gm 09/22/24 07:48 Glucose Oral Gel 15 Gm Of Glucse In 37.5 Gm Tube PO PRN PRN Hypoglycemia Protocol Heparin Sodium (Beef Lung) 50 units 09/23/24 09:00 Heparin Flush 50 Units/5 Ml Syringe IV PUSH QAM RAPHAEL Heparin Sodium (Beef Lung) 50 units 09/22/24 13:50 Heparin Flush 50 Units/5 Ml Syringe IV PUSH PRN PRN after intermittent infusion Heparin Sodium (Beef Lung) 50 units 09/22/24 13:50 Heparin Flush 50 Units/5 Ml Syringe IV PUSH PRN PRN after blood draws Heparin Sodium (Porcine) 500 units 09/22/24 13:50 Heparin Sodium Lock Flush 500 Units/5 Ml Syringe IV PUSH PRN PRN see comments below Hydromorphone HCl 1 mg 09/22/24 03:51 09/24/24 12:13 Hydromorphone Hcl Inj (*Crx) 2 Mg/Ml Vial IV PUSH 1 mg Q3H PRN Administration Pain Rated 7-10 Levothyroxine Sodium 200 mcg 09/22/24 10:45 09/24/24 06:06 Levothyroxine Sodium 100 Mcg Tablet PO 200 mcg DAILY@0630 RAPHAEL Administration Lorazepam 1 mg 09/22/24 21:00 09/23/24 23:16 Lorazepam (*Crx) 1 Mg Tablet PO 1 mg HS RAPHAEL Administration Metoclopramide HCl 5 mg 09/23/24 09:10 09/24/24 12:12 Metoclopramide Hcl 5 Mg Tablet PO 5 mg TIDWM RAPHAEL Administration Ondansetron HCl 4 mg 09/22/24 03:51 09/24/24 08:16 Ondansetron Inj 4 Mg/2 Ml Vial IV PUSH 4 mg Q4H PRN Administration Nausea Pantoprazole Sodium 40 mg 09/22/24 10:45 09/24/24 08:08 Pantoprazole 40 Mg Tablet PO 40 mg Q12HR RAPHAEL Administration Ticagrelor 90 mg 09/22/24 10:45 09/24/24 08:07 Ticagrelor 90 Mg Tablet PO 90 mg Q12HR RAPHAEL Administration Trazodone HCl 200 mg 09/23/24 21:00 09/23/24 22:21 Trazodone Hcl 50 Mg Tablet PO 200 mg HS RAPHAEL Administration Radiology Results: ITS Impressions Abdomen/Pelvis CT 09/22/24 05:29 Impression: Area of focal wall thickening and luminal narrowing at the ascending colon is felt to be most likely related to peristalsis. Focal neoplastic lesion would be a potential alternative consideration. Correlate clinically. Consider colonoscopy for further evaluation. No distinct evidence for bowel obstruction. Diffuse hepatic steatosis. Labs Labs: Laboratory Results - last 24 hr 09/23/24 09/23/24 09/23/24 17:10 20:44 23:27 WBC RBC Hgb Hct MCV MCH MCHC RDW Plt Count MPV Sodium Potassium Chloride Carbon Dioxide Anion Gap BUN Creatinine Estim Creat Clear Calc Estimated GFR Glucose POC Capillary Glucose 231 H 246 H Calcium Magnesium Total Bilirubin AST ALT Alkaline Phosphatase Total Protein Albumin Triglycerides 781 H 09/24/24 09/24/24 09/24/24 05:12 07:33 10:39 WBC 5.3 RBC 3.64 L Hgb 10.6 L Hct 34.0 L MCV 93.4 MCH 29.1 MCHC 31.2 L RDW 15.0 H Plt Count 181 MPV 9.9 Sodium 137 Potassium 3.7 Chloride 104 Carbon Dioxide 27 Anion Gap 6 BUN 6 L D Creatinine 0.59 L Estim Creat Clear Calc 106 Estimated GFR > 60 Glucose 184 H POC Capillary Glucose 195 H Calcium 8.8 Magnesium 1.8 Total Bilirubin 0.3 AST 23 ALT 17 Alkaline Phosphatase 69 Total Protein 6.0 L Albumin 3.7 Triglycerides 404 H 09/24/24 12:23 WBC RBC Hgb Hct MCV MCH MCHC RDW Plt Count MPV Sodium Potassium Chloride Carbon Dioxide Anion Gap BUN Creatinine Estim Creat Clear Calc Estimated GFR Glucose POC Capillary Glucose 186 H Calcium Magnesium Total Bilirubin AST ALT Alkaline Phosphatase Total Protein Albumin Triglycerides
[2024-09-24 14:19] VITALS: BP 114/63; PULSE 79; RESP 18; TEMP 36.8; O2SAT 98
[2024-09-24 17:15] LABS: Glucose Point of Care 214 mg/dl (65-105)
[2024-09-24 20:40] VITALS: BP 131/77; PULSE 90; RESP 16; TEMP 36.6; O2SAT 98
[2024-09-24] MEDS: LORazepam (*CRX) 1 MG TABLET PO (20:40)
[2024-09-24] MEDS: buPROPion HCL SR (12 HR) 150 MG TAB PO (20:40)
[2024-09-24] MEDS: traZODone HCL 50 MG TABLET 200 MG PO (20:41)
[2024-09-24 21:39] LABS: Glucose Point of Care 238 mg/dl (65-105)
[2024-09-25] MEDS: HYDROmorphone HCL INJ (*CRX) 2 MG/ML VIAL 1 MG IV PUSH ×6 (02:31→22:47)
[2024-09-25 04:56] LABS: Hematocrit 34.7 % (37.0-47.0); Hemoglobin 10.8 g/dL (12.0-15.0); Mean Corpuscular HGB Conc 31.1 g/dl (32-36); Mean Corpuscular Hemoglobin 28.9 pg (26-34); Mean Corpuscular Volume 92.8 fl (80-100); Mean Platelet Volume 9.7 fl (7.4-10.4); Platelet Count Result 184 k/mm3 (150-375); Red Blood Count 3.74 M/mm3 (4.2-5.4); Red Cell Distribution Width 14.6 % (11.5-14.5); White Blood Count 4.8 K/mm3 (4.5-10.0)
[2024-09-25 05:06] LABS: Triglycerides 400 mg/dL (<150)
[2024-09-25 05:11] LABS: Alanine Aminotransferase 17 U/L (6-35); Albumin Level 3.8 g/dL (3.5-5.1); Alkaline Phosphatase 70 U/L (38-126); Anion Gap 8 mmol/L (4-12); Aspartate Amino Transferase 26 U/L (14-36); Bilirubin,Total 0.4 mg/dL (0.2-1.3); Blood Urea Nitrogen 6 mg/dL (7-17); Carbon Dioxide 26 mmol/L (22-30); Chloride 104 mmol/L (98-107); Estimated CRCL calculation 108 ml/min; Estimated Glomerular Filt Rate > 60; Glucose 212 mg/dL (65-110); Magnesium 1.5 mg/dL (1.6-2.3); Potassium 3.7 mmol/L (3.4-5.0); Sodium 138 mmol/L (137-145)
[2024-09-25 05:43] VITALS: BP 125/99; PULSE 75; RESP 16; TEMP 36.7; O2SAT 98
[2024-09-25] MEDS: diphenhydrAMINE HCl INJ 50 MG/ML VIAL 25 MG IV PUSH ×2 (05:48→19:21)
[2024-09-25] MEDS: LEVOTHYROXINE SODIUM 100 MCG TABLET 200 MCG PO (07:17)
[2024-09-25] MEDS: CITALOPRAM HYDROBROMIDE 20 MG TABLET 40 MG PO (08:05)
[2024-09-25] MEDS: PANTOPRAZOLE 40 MG TABLET PO ×2 (08:05→20:42)
[2024-09-25] MEDS: ATORVASTATIN 40 MG TABLET 80 MG PO (08:05)
[2024-09-25] MEDS: ASPIRIN 81 MG CHEWABLE TABLET PO (08:05)
[2024-09-25] MEDS: TICAGRELOR 90 MG TABLET PO ×2 (08:05→20:42)
[2024-09-25] MEDS: METOCLOPRAMIDE HCL 5 MG TABLET PO ×3 (08:05→17:05)
[2024-09-25] MEDS: FENOFIBRATE NANOCRYSTALLIZED 145 MG TABLET PO (08:05)
[2024-09-25] MEDS: ENOXAPARIN 40 MG/0.4 ML SYRINGE SUB-Q (08:06)
[2024-09-25] MEDS: ONDANSETRON INJ 4 MG/2 ML VIAL IV PUSH ×2 (08:08→17:05)
[2024-09-25 08:11] LABS: Glucose Point of Care 193 mg/dl (65-105)
--- NOTE | 2024-09-25 11:26 | PM.IMPN ---
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 -Triglycerides continue to be elevated today (400) repeat levels did show drop in the levels however patient is still complaining of abdominal pain and nausea -Trial oral pain medication today instead of solely IV. [place] 5/325 q4 PRN with Dilaudid 1mg q4 prn (down from q3) for break through pain (2) Abdominal pain: Code(s): R10.9 - Unspecified abdominal pain Status: Acute (3) CAD (coronary artery disease): Code(s): I25.10 - Atherosclerotic heart disease of [place] coronary artery without angina pectoris Status: Acute Assessment and Plan: Continue home medications, VSS (4) Type 2 diabetes mellitus: Qualifiers: Diabetes mellitus exterminator termite insulin use: with exterminator termite use Diabetes mellitus complication status: without complication Qualified Code(s): E11.9 - Type 2 diabetes mellitus without complications; Z79.4 - terminal block assembler (current) use of insulin Code(s): E11.9 - Type 2 diabetes mellitus without complications Status: Chronic Assessment and Plan: Q4 BS checks with protocol in place (5) Nausea: Code(s): R11.0 - Nausea Status: Acute Assessment and Plan: Pt has been tolerating low fat diet Reglan ordered before meals, continue to assess nausea with potential plans to decrease to PRN tomorrow. 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 Qualified Code(s): E03.8 - Other specified hypothyroidism; E06.3 - Autoimmune thyroiditis Code(s): E03.9 - Hypothyroidism, unspecified Status: Acute Assessment and Plan: Continue home Synthroid 200mcg daily (7) GERD (gastroesophageal reflux disease): Qualifiers: Esophagitis presence: esophagitis presence not specified Qualified Code(s): K21.9 - Gastro-esophageal reflux disease without esophagitis Code(s): K21.9 - Gastro-esophageal reflux disease without esophagitis Status: Acute Assessment and Plan: Continue home pantoprazole 40mg BID Subjective Date/time seen: 09/25/24 0825 Interval history: Pt is a 48-year-old female who presents to the ER with abdominal pain. She has a history of gastroparesis and chronic pancreatitis secondary to hypertriglyceridemia. Pt is well known to our emergency department. She reports her symptoms started yesterday. Patient endorses nausea and vomiting associated with the left upper quadrant pain. She rates her pain at a 7 to 8/10. She denies any lower extremity edema, urinary symptoms, or recent fevers. Patient reports yesterday she had constipation and today she has had diarrhea. She has a history of diabetes, hypothyroidism, hyperlipidemia, and mental health diagnoses. Patient with history of chronic pancreatitis 2/2 hypertriglycemic presented with epigastric pain and elevated triglycerides of 1156, blood sugar of 297 and urine showing trace of ketone patient was admitted into ICU and longwall shearer operator had started patient on low dose insulin drip 1units per hour and being hydrated, today patient triglycerides are elevated today repeat levels did show drop in the levels however patient is still complaining of abdominal pain and nausea, may possibly discharge patient tomorrow. Pt rounded on today and she states that she is feeling mildly better and is agreeable to start to incorporate PO pain medication. Pt is tolerating her diet well (low fat diet) but continues to report LUQ pain. Plan for pain control, will assess again in the AM. Review of Systems Review of Systems: All systems reviewed & are unremarkable except as noted in HPI and below Exam Const: General: comfortable and no acute distress HENMT: Face/Nose/Sinus: Normal nares present Mouth: Yes moist mucous membranes Eyes: General: appearance normal, both eyes and all related structures Sclera: sclerae normal Neck: Neck: supple and no JVD Resp: Effort & Inspection: normal respiratory effort Auscultation: clear to auscultation bilaterally Cardio: Rate: regular rate Rhythm: regular rhythm GI: Inspection: non-distended Auscultation: normal bowel sounds Other: Mild TTP LUQ Skin: General skin exam: normal color and no rashes or lesions noted Wounds: no wounds Neuro: Speech: normal speech Motor exam (neuro): Normal motor muscle tone present throughout Sensory Exam: normal sensation Extrem: General: normal to inspection and no pedal edema Psych: Mental Status: mental status grossly normal Affect: normal affect Objective Data Vital Signs Vital Signs: Vital Signs - 24 hr 09/24/24 14:19 09/24/24 20:40 09/25/24 05:43 Temperature 98.2 F 97.8 F 98.1 F Pulse Rate 79 90 75 Respiratory Rate 18 16 16 Blood Pressure 114/63 131/77 125/99 H Pulse Oximetry 98 98 98 Oxygen Delivery 09/25/24 07:44 Temperature Pulse Rate Respiratory Rate Blood Pressure Pulse Oximetry Oxygen Delivery Room Air Intake/Output Intake/Output: Intake & Output 09/22/24 09/23/24 09/24/24 09/25/24 23:59 23:59 23:59 23:59 Intake Total 2065.0 1487.2 300 320 Output Total 1200 Balance 865.0 1487.2 300 320 Meds/Results Medications: Active Medications Generic Name Dose Route Start Last Admin Trade Name Freq PRN Reason Stop Dose Admin Acetaminophen 650 mg 09/22/24 03:51 Acetaminophen 325 Mg Tablet PO Q4H PRN Mild Pain (1-3) or Fever Aspirin 81 mg 09/22/24 10:45 09/25/24 08:05 Aspirin 81 Mg Chewable Tablet PO 81 mg DAILY@0800 RAPHAEL Administration Atorvastatin Calcium 80 mg 09/22/24 10:45 09/25/24 08:05 Atorvastatin 40 Mg Tablet PO 80 mg DAILY RAPHAEL Administration Bupropion HCl 150 mg 09/22/24 21:00 09/24/24 20:40 Bupropion Hcl Sr (12 Hr) 150 Mg Tab PO 150 mg HS RAPHAEL Administration Citalopram Hydrobromide 40 mg 09/23/24 09:30 09/25/24 08:05 Citalopram Hydrobromide 20 Mg Tablet PO 40 mg DAILY RAPHAEL Administration Dextrose 12.5 gm 09/22/24 07:48 Dextrose 50% 25 Gm/50 Ml Syringe IV PUSH PRN PRN Hypoglycemia Protocol Diphenhydramine HCl 25 mg 09/22/24 08:06 09/25/24 05:48 Diphenhydramine Hcl Inj 50 Mg/Ml Vial IV PUSH 25 mg Q6H PRN Administration Itching Docusate Sodium 100 mg 09/23/24 09:07 Docusate Sodium 100 Mg Capsule PO Q12HR PRN constipation Enoxaparin Sodium 40 mg 09/22/24 10:45 09/25/24 08:06 Enoxaparin 40 Mg/0.4 Ml Syringe SUB-Q 40 mg DAILY RAPHAEL Administration Fenofibrate 145 mg 09/22/24 10:45 09/25/24 08:05 Fenofibrate Nanocrystallized 145 Mg Tablet PO 145 mg QAM RAPHAEL Administration Glucagon 1 mg 09/22/24 07:48 Glucagon For Inj 1 Mg Vial IM PRN PRN Hypoglycemia Protocol Glucose 15 gm 09/22/24 07:48 Glucose Oral Gel 15 Gm Of Glucse In 37.5 Gm Tube PO PRN PRN Hypoglycemia Protocol Heparin Sodium (Beef Lung) 50 units 09/23/24 09:00 09/25/24 08:05 Heparin Flush 50 Units/5 Ml Syringe IV PUSH Not Given QAM RAPHAEL Heparin Sodium (Beef Lung) 50 units 09/22/24 13:50 Heparin Flush 50 Units/5 Ml Syringe IV PUSH PRN PRN after intermittent infusion Heparin Sodium (Beef Lung) 50 units 09/22/24 13:50 Heparin Flush 50 Units/5 Ml Syringe IV PUSH PRN PRN after blood draws Heparin Sodium (Porcine) 500 units 09/22/24 13:50 09/23/24 11:00 Heparin Sodium Lock Flush 500 Units/5 Ml Syringe IV PUSH 500 units PRN PRN Administration see comments below Hydromorphone HCl 1 mg 09/22/24 03:51 09/25/24 11:21 Hydromorphone Hcl Inj (*Crx) 2 Mg/Ml Vial IV PUSH 1 mg Q3H PRN Administration Pain Rated 7-10 Levothyroxine Sodium 200 mcg 09/22/24 10:45 09/25/24 07:17 Levothyroxine Sodium 100 Mcg Tablet PO 200 mcg DAILY@0630 RAPHAEL Administration Lorazepam 1 mg 09/22/24 21:00 09/24/24 20:40 Lorazepam (*Crx) 1 Mg Tablet PO 1 mg HS RAPHAEL Administration Metoclopramide HCl 5 mg 09/23/24 09:10 09/25/24 11:20 Metoclopramide Hcl 5 Mg Tablet PO 5 mg TIDWM RAPHAEL Administration Ondansetron HCl 4 mg 09/22/24 03:51 09/25/24 08:08 Ondansetron Inj 4 Mg/2 Ml Vial IV PUSH 4 mg Q4H PRN Administration Nausea Oxycodone/Acetaminophen 1 tablet 09/25/24 11:24 Oxycodone/Acetaminophen (*Crx) 5-325 Mg Tablet PO Q4H PRN Pain Rated 7-10 Pantoprazole Sodium 40 mg 09/22/24 10:45 09/25/24 08:05 Pantoprazole 40 Mg Tablet PO 40 mg Q12HR RAPHAEL Administration Ticagrelor 90 mg 09/22/24 10:45 09/25/24 08:05 Ticagrelor 90 Mg Tablet PO 90 mg Q12HR RAPHAEL Administration Trazodone HCl 200 mg 09/23/24 21:00 09/24/24 20:41 Trazodone Hcl 50 Mg Tablet PO 200 mg HS RAPHAEL Administration Radiology Results: ITS Impressions Abdomen/Pelvis CT 09/22/24 05:29 Impression: Area of focal wall thickening and luminal narrowing at the ascending colon is felt to be most likely related to peristalsis. Focal neoplastic lesion would be a potential alternative consideration. Correlate clinically. Consider colonoscopy for further evaluation. No distinct evidence for bowel obstruction. Diffuse hepatic steatosis. Labs Labs: Laboratory Results - last 24 hr 09/24/24 09/24/24 09/24/24 12:23 17:12 20:32 WBC RBC Hgb Hct MCV MCH MCHC RDW Plt Count MPV Sodium Potassium Chloride Carbon Dioxide Anion Gap BUN Creatinine Estim Creat Clear Calc Estimated GFR Glucose POC Capillary Glucose 186 H 214 H 238 H Calcium Magnesium Total Bilirubin AST ALT Alkaline Phosphatase Total Protein Albumin Triglycerides 09/25/24 09/25/24 09/25/24 04:03 04:04 08:08 WBC 4.8 RBC 3.74 L Hgb 10.8 L Hct 34.7 L MCV 92.8 MCH 28.9 MCHC 31.1 L RDW 14.6 H Plt Count 184 MPV 9.7 Sodium 138 Potassium 3.7 Chloride 104 Carbon Dioxide 26 Anion Gap 8 BUN 6 L Creatinine 0.58 L Estim Creat Clear Calc 108 Estimated GFR > 60 Glucose 212 H POC Capillary Glucose 193 H Calcium 9.0 Magnesium 1.5 L Total Bilirubin 0.4 AST 26 ALT 17 Alkaline Phosphatase 70 Total Protein 6.0 L Albumin 3.8 Triglycerides 400 H Quality VTE Prophylaxis VTE prophylaxis: pharmacologic ordered
[2024-09-25 12:11] LABS: Glucose Point of Care 202 mg/dl (65-105)
[2024-09-25 14:53] VITALS: BP 119/72; PULSE 85; RESP 16; TEMP 36.2; O2SAT 95
[2024-09-25 17:20] LABS: Glucose Point of Care 297 mg/dl (65-105)
[2024-09-25 20:33] VITALS: BP 115/72; PULSE 79; RESP 16; TEMP 36.7; O2SAT 98
[2024-09-25 20:40] VITALS: PULSE 79; RESP 16; O2SAT 98
[2024-09-25] MEDS: oxyCODONE/ACETAMINOPHEN (*CRX) 5-325 MG TABLET 1 TABLET PO (20:41)
[2024-09-25] MEDS: traZODone HCL 50 MG TABLET 200 MG PO (20:42)
[2024-09-25] MEDS: LORazepam (*CRX) 1 MG TABLET PO (20:42)
[2024-09-25] MEDS: buPROPion HCL SR (12 HR) 150 MG TAB PO (20:42)
[2024-09-25 20:48] LABS: Glucose Point of Care 269 mg/dl (65-105)
[2024-09-26] MEDS: ONDANSETRON INJ 4 MG/2 ML VIAL IV PUSH ×2 (01:38→17:43)
[2024-09-26] MEDS: diphenhydrAMINE HCl INJ 50 MG/ML VIAL 25 MG IV PUSH ×3 (01:38→18:26)
[2024-09-26] MEDS: HYDROmorphone HCL INJ (*CRX) 2 MG/ML VIAL 1 MG IV PUSH ×5 (03:45→22:44)
[2024-09-26 05:14] LABS: Hematocrit 33.6 % (37.0-47.0); Hemoglobin 10.5 g/dL (12.0-15.0); Mean Corpuscular HGB Conc 31.3 g/dl (32-36); Mean Corpuscular Volume 92.8 fl (80-100); Mean Platelet Volume 9.4 fl (7.4-10.4); Platelet Count Result 187 k/mm3 (150-375); Red Blood Count 3.62 M/mm3 (4.2-5.4); Red Cell Distribution Width 14.4 % (11.5-14.5); White Blood Count 4.8 K/mm3 (4.5-10.0)
[2024-09-26 05:29] LABS: Alanine Aminotransferase 23 U/L (6-35); Albumin Level 3.8 g/dL (3.5-5.1); Alkaline Phosphatase 65 U/L (38-126); Anion Gap 6 mmol/L (4-12); Aspartate Amino Transferase 34 U/L (14-36); Bilirubin,Total 0.3 mg/dL (0.2-1.3); Blood Urea Nitrogen 7 mg/dL (7-17); Calcium 8.8 mg/dL (8.4-10.2); Carbon Dioxide 29 mmol/L (22-30); Chloride 104 mmol/L (98-107); Estimated CRCL calculation 104 ml/min; Estimated Glomerular Filt Rate > 60; Glucose 208 mg/dL (65-110); Magnesium 1.5 mg/dL (1.6-2.3); Potassium 3.5 mmol/L (3.4-5.0); Sodium 139 mmol/L (137-145); Triglycerides 330 mg/dL (<150)
[2024-09-26 06:08] VITALS: BP 133/64; PULSE 76; RESP 16; TEMP 36.8; O2SAT 95
[2024-09-26] MEDS: LEVOTHYROXINE SODIUM 100 MCG TABLET 200 MCG PO (06:15)
[2024-09-26] MEDS: oxyCODONE/ACETAMINOPHEN (*CRX) 5-325 MG TABLET 1 TABLET PO ×2 (06:16→12:42)
--- NOTE | 2024-09-26 07:02 | P.PNIM_ITS ---
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 -Triglycerides continue to be elevated today (330) repeat levels did show drop in the levels however patient is still complaining of mild abdominal pain and nausea -Trial oral pain medication on 09/25 instead of solely IV. [place] 5/325 q4 PRN with Dilaudid 1mg q4 prn (down from q3) for break through pain, pt has been using IV less. (2) Abdominal pain: Code(s): R10.9 - Unspecified abdominal pain Status: Acute Assessment and Plan: See above. (3) CAD (coronary artery disease): Code(s): I25.10 - Atherosclerotic heart disease of [place] coronary artery without angina pectoris Status: Acute Assessment and Plan: Continue home medications, VSS (4) Type 2 diabetes mellitus: Qualifiers: Diabetes mellitus complication status: without complication Diabetes mellitus watermelon inspector insulin use: with retirement use Qualified Code(s): E11.9 - Type 2 diabetes mellitus without complications; Z79.4 - prison (current) use of insulin Code(s): E11.9 - Type 2 diabetes mellitus without complications Status: Chronic Assessment and Plan: Q4 BS checks with protocol in place (5) Nausea: Code(s): R11.0 - Nausea Status: Acute Assessment and Plan: Pt has been tolerating low fat diet Reglan ordered before meals, changed this to q4 PRN to prepare for D/C. 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 Qualified Code(s): E03.8 - Other specified hypothyroidism; E06.3 - Autoimmune thyroiditis Code(s): E03.9 - Hypothyroidism, unspecified Status: Acute Assessment and Plan: Continue home Synthroid 200mcg daily (7) GERD (gastroesophageal reflux disease): Qualifiers: Esophagitis presence: esophagitis presence not specified Qualified Code(s): K21.9 - Gastro-esophageal reflux disease without esophagitis Code(s): K21.9 - Gastro-esophageal reflux disease without esophagitis Status: Acute Assessment and Plan: Continue home pantoprazole 40mg BID Plan Continue to monitor pain and nausea with hopeful D/C for tomorrow. Subjective Date/time seen: 09/26/24 0909 Interval history: Pt is a 48-year-old female who presents to the ER with abdominal pain. She has a history of gastroparesis and chronic pancreatitis secondary to hypert riglyceridemia. Pt is well known to our emergency department. She reports her symptoms started yesterday. Patient endorses nausea and vomiting associated with the left upper quadrant pain. She rates her pain at a 7 to 8/10. She denies any lower extremity edema, urinary symptoms, or recent fevers. Patient reports yesterday she had constipation and today she has had diarrhea. She has a history of diabetes, hypothyroidism, hyperlipidemia, and mental health diagnoses. 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 Pt rounded on today and she states that she is feeling a little bit better pain and nausea [place]ona, stating that she is getting closer to being comfortable with going home, hopeful for tomorrow. Pt is tolerating her diet well (low fat diet) but continues to report mild LUQ pain. Plan for pain control, will assess again in the AM. Review of Systems Review of Systems: All systems reviewed & are unremarkable except as noted in HPI and below Exam Const: General: no acute distress HENMT: Face/Nose/Sinus: Normal nares present Mouth: Yes moist mucous membranes Eyes: General: appearance normal, both eyes and all related structures Sclera: sclerae normal Neck: Neck: supple and no JVD Resp: Effort & Inspection: normal respiratory effort Auscultation: clear to auscultation bilaterally Cardio: Rate: regular rate Rhythm: regular rhythm GI: Inspection: non-distended Auscultation: normal bowel sounds Other: Mild TTP LUQ Skin: General skin exam: normal color and no rashes or lesions noted Wounds: no wounds Neuro: Speech: normal speech Motor exam (neuro): Normal motor muscle tone present throughout Sensory Exam: normal sensation Extrem: General: normal to inspection and no pedal edema Psych: Mental Status: mental status grossly normal Affect: normal affect Objective Data Vital Signs Vital Signs: Vital Signs - 24 hr 09/25/24 07:44 09/25/24 14:53 09/25/24 20:33 Temperature 97.2 F L 98.1 F Pulse Rate 85 79 Respiratory Rate 16 16 Blood Pressure 119/72 115/72 Pulse Oximetry 95 98 Oxygen Delivery Room Air 09/25/24 20:40 09/26/24 06:08 Temperature 98.3 F Pulse Rate 79 76 Respiratory Rate 16 16 Blood Pressure 133/64 Pulse Oximetry 98 95 Oxygen Delivery Room Air Intake/Output Intake/Output: Intake & Output 09/23/24 09/24/24 09/25/24 09/26/24 23:59 23:59 23:59 23:59 Intake Total 1487.2 300 1000 300 Balance 1487.2 300 1000 300 Meds/Results Medications: Active Medications Generic Name Dose Route Start Last Admin Trade Name Freq PRN Reason Stop Dose Admin Acetaminophen 650 mg 09/22/24 03:51 Acetaminophen 325 Mg Tablet PO Q4H PRN Mild Pain (1-3) or Fever Aspirin 81 mg 09/22/24 10:45 09/25/24 08:05 Aspirin 81 Mg Chewable Tablet PO 81 mg DAILY@0800 RAPHAEL Administration Atorvastatin Calcium 80 mg 09/22/24 10:45 09/25/24 08:05 Atorvastatin 40 Mg Tablet PO 80 mg DAILY RAPHAEL Administration Bupropion HCl 150 mg 09/22/24 21:00 09/25/24 20:42 Bupropion Hcl Sr (12 Hr) 150 Mg Tab PO 150 mg HS RAPHAEL Administration Citalopram Hydrobromide 40 mg 09/23/24 09:30 09/25/24 08:05 Citalopram Hydrobromide 20 Mg Tablet PO 40 mg DAILY RAPHAEL Administration Dextrose 12.5 gm 09/22/24 07:48 Dextrose 50% 25 Gm/50 Ml Syringe IV PUSH PRN PRN Hypoglycemia Protocol Diphenhydramine HCl 25 mg 09/22/24 08:06 09/26/24 01:38 Diphenhydramine Hcl Inj 50 Mg/Ml Vial IV PUSH 25 mg Q6H PRN Administration Itching Docusate Sodium 100 mg 09/23/24 09:07 Docusate Sodium 100 Mg Capsule PO Q12HR PRN constipation Enoxaparin Sodium 40 mg 09/22/24 10:45 09/25/24 08:06 Enoxaparin 40 Mg/0.4 Ml Syringe SUB-Q 40 mg DAILY RAPHAEL Administration Fenofibrate 145 mg 09/22/24 10:45 09/25/24 08:05 Fenofibrate Nanocrystallized 145 Mg Tablet PO 145 mg QAM RAPHAEL Administration Glucagon 1 mg 09/22/24 07:48 Glucagon For Inj 1 Mg Vial IM PRN PRN Hypoglycemia Protocol Glucose 15 gm 09/22/24 07:48 Glucose Oral Gel 15 Gm Of Glucse In 37.5 Gm Tube PO PRN PRN Hypoglycemia Protocol Hydromorphone HCl 1 mg 09/25/24 11:25 09/26/24 03:45 Hydromorphone Hcl Inj (*Crx) 2 Mg/Ml Vial IV PUSH 1 mg Q4H PRN Administration Pain Rated 7-10 Levothyroxine Sodium 200 mcg 09/22/24 10:45 09/26/24 06:15 Levothyroxine Sodium 100 Mcg Tablet PO 200 mcg DAILY@0630 RAPHAEL Administration Lorazepam 1 mg 09/22/24 21:00 09/25/24 20:42 Lorazepam (*Crx) 1 Mg Tablet PO 1 mg HS RAPHAEL Administration Metoclopramide HCl 5 mg 09/23/24 09:10 09/25/24 17:05 Metoclopramide Hcl 5 Mg Tablet PO 5 mg TIDWM RAPHAEL Administration Ondansetron HCl 4 mg 09/22/24 03:51 09/26/24 01:38 Ondansetron Inj 4 Mg/2 Ml Vial IV PUSH 4 mg Q4H PRN Administration Nausea Oxycodone/Acetaminophen 1 tablet 09/25/24 11:24 09/26/24 06:16 Oxycodone/Acetaminophen (*Crx) 5-325 Mg Tablet PO 1 tablet Q4H PRN Administration Pain Rated 7-10 Pantoprazole Sodium 40 mg 09/22/24 10:45 09/25/24 20:42 Pantoprazole 40 Mg Tablet PO 40 mg Q12HR RAPHAEL Administration Ticagrelor 90 mg 09/22/24 10:45 09/25/24 20:42 Ticagrelor 90 Mg Tablet PO 90 mg Q12HR RAPHAEL Administration Trazodone HCl 200 mg 09/23/24 21:00 09/25/24 20:42 Trazodone Hcl 50 Mg Tablet PO 200 mg HS RAPHAEL Administration Radiology Results: ITS Impressions Abdomen/Pelvis CT 09/22/24 05:29 Impression: Area of focal wall thickening and luminal narrowing at the ascending colon is felt to be most likely related to peristalsis. Focal neoplastic lesion would be a potential alternative consideration. Correlate clinically. Consider colonoscopy for further evaluation. No distinct evidence for bowel obstruction. Diffuse hepatic steatosis. Labs Labs: Laboratory Results - last 24 hr 09/25/24 09/25/24 09/25/24 08:08 12:09 17:15 WBC RBC Hgb Hct MCV MCH MCHC RDW Plt Count MPV Sodium Potassium Chloride Carbon Dioxide Anion Gap BUN Creatinine Estim Creat Clear Calc Estimated GFR Glucose POC Capillary Glucose 193 H 202 H 297 H Calcium Magnesium Total Bilirubin AST ALT Alkaline Phosphatase Total Protein Albumin Triglycerides 09/25/24 09/26/24 20:44 04:34 WBC 4.8 RBC 3.62 L Hgb 10.5 L Hct 33.6 L MCV 92.8 MCH 29.0 MCHC 31.3 L RDW 14.4 Plt Count 187 MPV 9.4 Sodium 139 Potassium 3.5 Chloride 104 Carbon Dioxide 29 Anion Gap 6 BUN 7 Creatinine 0.60 L Estim Creat Clear Calc 104 Estimated GFR > 60 Glucose 208 H POC Capillary Glucose 269 H Calcium 8.8 Magnesium 1.5 L Total Bilirubin 0.3 AST 34 ALT 23 Alkaline Phosphatase 65 Total Protein 6.0 L Albumin 3.8 Triglycerides 330 H Quality VTE Prophylaxis VTE prophylaxis: pharmacologic ordered
[2024-09-26 07:56] LABS: Glucose Point of Care 184 mg/dl (65-105)
[2024-09-26] MEDS: ASPIRIN 81 MG CHEWABLE TABLET PO (08:27)
[2024-09-26] MEDS: TICAGRELOR 90 MG TABLET PO ×2 (08:27→20:53)
[2024-09-26] MEDS: METOCLOPRAMIDE HCL 5 MG TABLET PO ×2 (08:27→12:04)
[2024-09-26] MEDS: PANTOPRAZOLE 40 MG TABLET PO ×2 (08:27→20:53)
[2024-09-26] MEDS: FENOFIBRATE NANOCRYSTALLIZED 145 MG TABLET PO (08:28)
[2024-09-26] MEDS: ATORVASTATIN 40 MG TABLET 80 MG PO (08:28)
[2024-09-26] MEDS: CITALOPRAM HYDROBROMIDE 20 MG TABLET 40 MG PO (08:28)
[2024-09-26] MEDS: ENOXAPARIN 40 MG/0.4 ML SYRINGE SUB-Q (08:28)
[2024-09-26 11:56] LABS: Glucose Point of Care 190 mg/dl (65-105)
[2024-09-26 14:39] VITALS: BP 121/70; PULSE 84; RESP 16; TEMP 36.3; O2SAT 95
[2024-09-26 16:50] LABS: Glucose Point of Care 179 mg/dl (65-105)
[2024-09-26 20:21] LABS: Glucose Point of Care 244 mg/dl (65-105)
[2024-09-26 20:50] VITALS: PULSE 84; RESP 16; O2SAT 95
[2024-09-26] MEDS: LORazepam (*CRX) 1 MG TABLET PO (20:53)
[2024-09-26] MEDS: buPROPion HCL SR (12 HR) 150 MG TAB PO (20:53)
[2024-09-26] MEDS: DOCUSATE SODIUM 100 MG CAPSULE PO (20:53)
[2024-09-26] MEDS: traZODone HCL 50 MG TABLET 200 MG PO (20:53)
[2024-09-26 21:19] VITALS: PULSE 80; RESP 20; O2SAT 96
[2024-09-26 21:31] VITALS: BP 122/65; PULSE 86; RESP 16; TEMP 36.6; O2SAT 96
[2024-09-27] MEDS: HYDROmorphone HCL INJ (*CRX) 2 MG/ML VIAL 1 MG IV PUSH (04:28)
[2024-09-27] MEDS: diphenhydrAMINE HCl INJ 50 MG/ML VIAL 25 MG IV PUSH (04:28)
[2024-09-27 05:21] LABS: Hematocrit 33.9 % (37.0-47.0); Hemoglobin 10.9 g/dL (12.0-15.0); Mean Corpuscular HGB Conc 32.2 g/dl (32-36); Mean Corpuscular Hemoglobin 29.5 pg (26-34); Mean Corpuscular Volume 91.6 fl (80-100); Mean Platelet Volume 9.9 fl (7.4-10.4); Platelet Count Result 210 k/mm3 (150-375); Red Cell Distribution Width 14.4 % (11.5-14.5)
[2024-09-27 05:34] LABS: Alanine Aminotransferase 34 U/L (6-35); Albumin Level 3.9 g/dL (3.5-5.1); Alkaline Phosphatase 62 U/L (38-126); Anion Gap 10 mmol/L (4-12); Aspartate Amino Transferase 40 U/L (14-36); Bilirubin,Total 0.3 mg/dL (0.2-1.3); Blood Urea Nitrogen 7 mg/dL (7-17); Calcium 8.8 mg/dL (8.4-10.2); Carbon Dioxide 27 mmol/L (22-30); Chloride 103 mmol/L (98-107); Estimated CRCL calculation 98 ml/min; Estimated Glomerular Filt Rate > 60; Glucose 214 mg/dL (65-110); Magnesium 1.4 mg/dL (1.6-2.3); Potassium 3.5 mmol/L (3.4-5.0); Sodium 140 mmol/L (137-145); Triglycerides 303 mg/dL (<150)
[2024-09-27 06:00] VITALS: BP 121/54; PULSE 71; RESP 16; TEMP 36.8; O2SAT 98
[2024-09-27] MEDS: LEVOTHYROXINE SODIUM 100 MCG TABLET 200 MCG PO (06:10)
[2024-09-27 08:15] LABS: Glucose Point of Care 213 mg/dl (65-105)
[2024-09-27] MEDS: PANTOPRAZOLE 40 MG TABLET PO (08:36)
[2024-09-27] MEDS: TICAGRELOR 90 MG TABLET PO (08:36)
[2024-09-27] MEDS: ATORVASTATIN 40 MG TABLET 80 MG PO (08:36)
[2024-09-27] MEDS: FENOFIBRATE NANOCRYSTALLIZED 145 MG TABLET PO (08:36)
[2024-09-27] MEDS: ASPIRIN 81 MG CHEWABLE TABLET PO (08:36)
[2024-09-27] MEDS: ENOXAPARIN 40 MG/0.4 ML SYRINGE SUB-Q (08:36)
[2024-09-27] MEDS: CITALOPRAM HYDROBROMIDE 20 MG TABLET 40 MG PO (08:36)
[2024-09-27] MEDS: oxyCODONE/ACETAMINOPHEN (*CRX) 5-325 MG TABLET 1 TABLET PO ×2 (08:41→12:53)
[2024-09-27] MEDS: ONDANSETRON INJ 4 MG/2 ML VIAL IV PUSH (08:41)
[2024-09-27 11:58] LABS: Glucose Point of Care 323 mg/dl (65-105)
--- NOTE | 2024-09-27 12:46 | PM.DS ---
DS: Admitting Diagnosis Discharge Date 09/27/2024 Admitting Diagnosis Pancreatitis DS: Discharge Diagnosis Discharge Diagnosis (1) Acute on chronic pancreatitis: Code(s): K85.90 - Acute pancreatitis without necrosis or infection, unspecified; K86.1 - Other chronic pancreatitis Status: Acute Assessment and Plan: Patient with history of chronic pancreatitis 2/2 hypertriglycemic presented with epigastric pain and elevated triglycerides of 1156, blood sugar of 297 and urine showing trace of ketone patient was admitted into ICU and thread cutter tender had started patient on low dose insulin drip 1units per hour and being hydrated - has since been stopped. Will continue home insulin pump. -Triglycerides continue to down trend, today 303 -Has been tolerating just oral pain medications since this AM. -->Will go home with a limited amount of oral pain medication for break through pain --->Internet down at time of discharge, so unable to send this rx today, pt will have to come up to the hospital tomorrow and pick pulling machine tender a paper copy for the rx, pt made aware and is agreeable. (2) Abdominal pain: Code(s): R10.9 - Unspecified abdominal pain Status: Acute Assessment and Plan: See above. (3) CAD (coronary artery disease): Code(s): I25.10 - Atherosclerotic heart disease of [place] coronary artery without angina pectoris Status: Acute Assessment and Plan: Continue home medications, VSS, asymptomatic. (4) Type 2 diabetes mellitus: Code(s): E11.9 - Type 2 diabetes mellitus without complications Status: Chronic Assessment and Plan: Q4 BS checks with protocol in place. Restart insulin pump at home (5) Nausea: Code(s): R11.0 - Nausea Status: Acute Assessment and Plan: Pt has been tolerating low fat diet, will continue at home Reglan PRN to prepare for D/C. Pt takes Zofran 4mg PO Q8 hrs at home (6) Hypothyroidism: Code(s): E03.9 - Hypothyroidism, unspecified Status: Acute Assessment and Plan: Continue home Synthroid 200mcg daily (7) GERD (gastroesophageal reflux disease): Code(s): K21.9 - Gastro-esophageal reflux disease without esophagitis Status: Acute Assessment and Plan: Continue home pantoprazole 40mg BID Plan D/C with small dose of oral pain medication for break through pain. DS: Summary Hospital Course Reason for hospitalization: Pancreatitis Hospital Course: Pt is a 48-year-old female who presents to the ER with abdominal pain. She has a history of gastroparesis and chronic pancreatitis secondary to hypertriglyceridemia. Pt is well known to our emergency department. She reports her symptoms started yesterday. Patient endorses nausea and vomiting associated with the left upper quadrant pain. She rates her pain at a 7 to 8/10. She denies any lower extremity edema, urinary symptoms, or recent fevers. Patient reports yesterday she had constipation and today she has had diarrhea. She has a history of diabetes, hypothyroidism, hyperlipidemia, and mental health diagnoses. Patient with history of chronic pancreatitis 2/2 hypertriglycemic presented with epigastric pain and elevated triglycerides of 1156, blood sugar of 297 and urine showing trace of ketone patient was admitted into ICU and thread cutter tender had started patient on low dose insulin drip 1units per hour and being hydrated, today patient triglycerides are elevated today repeat levels did show drop in the levels however patient is still complaining of abdominal pain and nausea, may possibly discharge patient tomorrow, pending pain and nausea assessment. 09/27: Pt rounded on today and she states that she continues to feel better and is ready to go home. Tolerating food well and pain controlled with oral pain medications, will also be sent home with a limited amount of oral pain medication for break through pain Triglycerides continue to decrease, today at 303. Plan to f/u with her PCP for labs and sx control. Status at Discharge Cognitive/behavioral status at discharge: stable Functional status at discharge: independent ambulation Overall status at discharge: patient is progressing back to baseline Time Spent with Patient Time attestation: Total time spent providing and/or coordinating discharge services: Exam Const: General: comfortable and no acute distress HENMT: Face/Nose/Sinus: Normal nares present Mouth: Yes moist mucous membranes Eyes: General: appearance normal, both eyes and all related structures Sclera: sclerae normal Neck: Neck: supple and no JVD Resp: Effort & Inspection: normal respiratory effort Auscultation: clear to auscultation bilaterally Cardio: Rate: regular rate Rhythm: regular rhythm GI: Inspection: non-distended Auscultation: normal bowel sounds Other: Mild TTP LUQ Skin: General skin exam: normal color and no rashes or lesions noted Wounds: no wounds Neuro: Speech: normal speech Motor exam (neuro): Normal motor muscle tone present throughout Sensory Exam: normal sensation Extrem: General: normal to inspection and no pedal edema Psych: Mental Status: mental status grossly normal Affect: normal affect DS: Data Data Completed and Pending Labs on day of discharge: Labs from last 24 hours 09/27/24 09/27/24 09/27/24 11:49 08:06 04:28 WBC 5.0 RBC 3.70 L Hgb 10.9 L Hct 33.9 L MCV 91.6 MCH 29.5 MCHC 32.2 RDW 14.4 Plt Count 210 MPV 9.9 Sodium 140 Potassium 3.5 Chloride 103 Carbon Dioxide 27 Anion Gap 10 BUN 7 Creatinine 0.64 L Estim Creat Clear Calc 98 Estimated GFR > 60 Glucose 214 H POC Capillary Glucose 323 H 213 H Calcium 8.8 Magnesium 1.4 L Total Bilirubin 0.3 AST 40 H ALT 34 Alkaline Phosphatase 62 Total Protein 6.0 L Albumin 3.9 Triglycerides 303 H 09/26/24 09/26/24 20:17 16:47 WBC RBC Hgb Hct MCV MCH MCHC RDW Plt Count MPV Sodium Potassium Chloride Carbon Dioxide Anion Gap BUN Creatinine Estim Creat Clear Calc Estimated GFR Glucose POC Capillary Glucose 244 H 179 H Calcium Magnesium Total Bilirubin AST ALT Alkaline Phosphatase Total Protein Albumin Triglycerides Discharge Plan Discharge Attending physician on discharge: Robyn Alcocer Consulting providers: Radames Mcgrath Discharging Clinician: Robyn Alcocer Anticipated Discharge Date/Time: 09/27/24 15:00 Patient Disposition: Home Activity: may shower and as tolerated Diet: low fat Discharge Instructions: Restart all of your home medications, including your insulin pump. I am sending you home with a a limited amount of oral pain medication for break through pain, use this when you absolutely need it. I recommend also taking a stool softener when taking these pain medications so you do not become constipated. Continue to check your blood pressure and blood sugar at home if applicable. Keep your scheduled appts with your primary care provider and any specialist that you may see. Return to the emergency department if you develop sudden shortness of breath, chest pain, a fever of greater than 101.5, or nausea, vomiting, abd pain, or diarrhea that does not go away. Follow-up with your primary care provider within 1-2 weeks, they will want to be updated on your inpatient stay in the hospital and the need for f/u blood work. Thank you for choosing [facility] for your healthcare needs. Patient Instructions: Antibiotic Form, Oxycodone/Acetaminophen (By mouth), Pancreatitis (GEN) Patient Language: Albanian Stand Alone Forms: General Discharge Information Follow-up/Referrals: Jose Zuniga APRN [Primary Care Provider] - 2 Weeks Discharge Medications: New oxycodone-acetaminophen 5-325 mg Tablet 1 tablet PO Q8H PRN (Reason: Pain Rated 7-10) Qty: 10 0RF Continued metformin 500 mg tablet 1,000 mg PO BID Qty: 180 1RF Rx Instructions: with morning & evening meals Tryngolza 80 mg/0.8 mL auto-injector 80 mg subcut MONTHLY levothyroxine 200 mcg tablet 200 mcg PO DAILY Qty: 90 0RF pantoprazole [Protonix] 40 mg tablet,delayed release (DR/EC) 40 mg PO BID Qty: 30 0RF metoclopramide HCl 5 mg tablet 5 mg PO TIDWMEAL 30 Days Qty: 90 11RF aspirin 81 mg Tablet,Delayed Release (Dr/Ec) 81 mg PO QAM Qty: 30 0RF citalopram 40 mg tablet 40 mg PO DAILY Rx Instructions: TAKE 1 TABLET BY MOUTH EVERY DAY bupropion HCl 150 mg tablet sustained-release 12 hr 150 mg PO HS ondansetron 4 mg tablet,disintegrating 4 mg PO Q8H PRN (Reason: nausea and vomiting) Qty: 10 0RF metoprolol succinate 25 mg tablet extended release 24 hr 12.5 mg PO DAILY docusate sodium 100 mg Capsule 100 mg PO Q12HR PRN (Reason: constipation) Qty: 20 0RF Brilinta 90 mg tablet 90 mg PO BID Qty: 180 0RF fenofibrate 160 mg tablet 160 mg PO DAILY Qty: 90 1RF trazodone 100 mg tablet 200 mg PO HS Qty: 180 1RF lorazepam 1 mg tablet 1 mg PO QHS PRN (Reason: sleep) Qty: 90 0RF atorvastatin 80 mg tablet 80 mg PO HS Qty: 90 3RF insulin aspart U-100 [Novolog U-100 Insulin aspart] 100 unit/mL solution See Rx Instructions .ROUTE .COMPLEX MDD 60 Qty: 50 0RF Rx Instructions: for insulin pump Date of admission: 09/25/24 08:15 Primary Care Provider: Jose Zuniga Admitting Provider: Brynn Remy Attending physician on admission: Юлия Carrion Condition: Stable Quality VTE Prophylaxis VTE prophylaxis: pharmacologic ordered
[2024-09-27] MEDS: INSULIN ASPART (*BKC) 100 UNITS/ML SUB-Q (12:53)
[2024-09-27] MEDS: diphenhydrAMINE HCl CAP 25 MG CAPSULE 50 MG PO (12:53)
[2024-09-27 14:21] LABS: Glucose Point of Care 211 mg/dl (65-105)
[2024-09-27 14:48] VITALS: BP 129/72; PULSE 88; RESP 16; TEMP 36.2; O2SAT 95
== END 2024-09-27 15:20 | disposition home or self-care (01) | DRG 642 ==
LOC: ANHED 09-22 03:58 → ANHICU 09-22 04:55 → ANH2MED 09-23 12:54
PROVIDERS: Family Medicine; Internal Medicine; Registered Nurse; Admitting Provider Internal Medicine; Emergency Provider Student in an Organized Health Care Education/Training Program; PCP Nurse Practitioner; Visit Provider Internal Medicine
DX: E78.3 Hyperchylomicronemia (principal); K85.90 Acute pancreatitis without necrosis or infection, unspecified; K86.1 Other chronic pancreatitis; I25.10 Atherosclerotic heart disease of native coronary artery without angina pectoris; E78.1 Pure hyperglyceridemia; E78.6 Lipoprotein deficiency; E11.43 Type 2 diabetes mellitus with diabetic autonomic (poly)neuropathy; K31.84 Gastroparesis; E06.3 Autoimmune thyroiditis; E28.2 Polycystic ovarian syndrome; K21.9 Gastro-esophageal reflux disease without esophagitis; F41.9 Anxiety disorder, unspecified; F17.210 Nicotine dependence, cigarettes, uncomplicated; Z79.82 Long term (current) use of aspirin; Z79.4 Long term (current) use of insulin
CPT/HCPCS: 36415; 74177; 80053; 81003; 82948; 83690; 83735; 84100; 84478; 85025; 85027; 87641; 96361; 96366; 96367; 96368; 96375; 96376; 99212; 99285; A9270; G0378; G0463; J1171; J1200; J1644; J1650; J1815; J2405; J3475; J7030; J7120; Q9967

== ENCOUNTER 2024-10-06 15:52 | Emergency (ER) | payer MEDICARE, SELFPAY ==
[2024-10-06] VITALS (11 sets, daily range): BP systolic 117–168; BP diastolic 65–118; PULSE 83–102; RESP 10–57; TEMP 36.7; O2SAT 95–100
--- NOTE | ~2024-10-06 | CT_ITS ---
CT abdomen pelvis w con Ordering provider: Brice Conner MD History: 48 years Female with . Chronic pancreatitis . Comparison: None. Technique: CT abdomen and pelvis with IV and without oral contrast. Automated exposure control and it erative reconstruction technique were employed. The dose-length product was 730.55 mGy-cm. 100 mL Omn ipaque 350 was given IV. Findings: VISUALIZED LOWER CHEST: Dependent atelectatic changes. UPPER ABDOMINAL ORGANS: Liver: Fat infiltration. Hepatomegaly. Gallbladder: Normal. Spleen: Small hypodensity is seen inferiorly which may be a cyst measuring 1.9 cm. Stomach/duodenum: Sliding hiatus hernia. Pancreas: Slightly prominent pancreatic duct. Follow-up advised. Adrenals: Normal. Kidneys: Tiny stone in the left lower ureter measuring 2.4 mm with left hydroureter and moderate hydr onephrotic changes. Mild fullness of the right renal pelvis. 0 6 normalmen of the second toe Pelvic ORGANS: The bladder is underfilled. BOWEL AND MESENTERY: Colon:. No evidence of diverticulitis. The appendix is not demonstrated.. Small Bowel: Normal. No obstruction. Peritoneum/mesentery: No free air or free fluid. No mesenteric lymphadenopathy. RETROPERITONEUM: Mild atheromatous disease of the abdominal aorta. No retroperitoneal lymphadenopat hy. MUSCULOSKELETAL: Superficial soft tissues: The superficial soft tissues are normal. Bones: Age appropriate degenerative changes of the spine. IMPRESSION: 1. No evidence of appendicitis, diverticulitis or intestinal obstruction. 2. Stone in the left lower ureter with left moderate hydronephrosis.. 3. Fat infiltration of the liver. Hepatomegaly. 4. Prominent pancreatic duct. Follow-up advised. Reviewed, dictated and finalized at location A.
[2024-10-06 16:06] LABS: Glucose Point of Care 390 mg/dl (65-105)
[2024-10-06 16:20] LABS: Basophils Percent Auto 0.3 % (0.2-1.2); Eosinophils Percent Auto 0.2 % (0-4.4); Hematocrit 38.6 % (37.0-47.0); Hemoglobin 12.6 g/dL (12.0-15.0); Immature Granulocyte Absolute 0.13 K/mm3 (0.00-0.031); Immature Granulocyte Percent A 0.9 % (0-0.5); Lymphocytes Absolute Auto 1.34 K/mm3 (0.9-3.2); Lymphocytes Percent Auto 9.5 % (18.3-44.2); Mean Corpuscular HGB Conc 32.6 g/dl (32-36); Mean Corpuscular Volume 88.7 fl (80-100); Mean Platelet Volume 9.4 fl (7.4-10.4); Monocytes Absolute Auto 0.8 K/mm3 (0.1-0.6); Monocytes Percent Auto 5.7 % (2.6-8.5); Neutrophils Absolute Auto 11.8 K/mm3 (1.3-6.7); Neutrophils Percent Auto 83.4 % (45.5-73.1); Platelet Count Result 344 k/mm3 (150-375); Red Blood Count 4.35 M/mm3 (4.2-5.4); Red Cell Distribution Width 14.1 % (11.5-14.5); White Blood Count 14.1 K/mm3 (4.5-10.0)
[2024-10-06 16:23] LABS: Add Urine Microscopic? YES; Appearance Urine Clear (Clear); Bacteria Urine None Seen /hpf; Bilirubin Urine Negative (Negative); Blood Urine 1+ (Negative); Color Urine Yellow (Yellow); Glucose Urine UA 2+ mg/dL (Negative); Ketones Urine 2+ mg/dL (Negative); Leukocyte Esterase Ur Negative LEU/UL (Negative); Nitrate Urine Negative (Negative); Non Pathogenic Casts 0-2; Protein Urine Trace mg/dL (Negative); Specific Grav Ur 1.042 (1.001-1.035); Squamous Epithelial Cell Urine None Seen /hpf (Few); Urobilinogen Urine 0.2 mg/dL (<2.0); WBC Urine 0-5 /hpf (0-3)
[2024-10-06 16:30] LABS: Alanine Aminotransferase 27 U/L (6-35); Albumin Level 4.8 g/dL (3.5-5.1); Alkaline Phosphatase 86 U/L (38-126); Anion Gap 14 mmol/L (4-12); Aspartate Amino Transferase 34 U/L (14-36); Bilirubin,Total 0.5 mg/dL (0.2-1.3); Blood Urea Nitrogen 13 mg/dL (7-17); Calcium 9.6 mg/dL (8.4-10.2); Carbon Dioxide 20 mmol/L (22-30); Chloride 103 mmol/L (98-107); Estimated CRCL calculation 73 ml/min; Estimated Glomerular Filt Rate > 60; Glucose 385 mg/dL (65-110); Lipase 98 U/L (23-300); Potassium 3.9 mmol/L (3.4-5.0); Sodium 137 mmol/L (137-145); Total Protein 7.6 g/dL (6.3-8.2)
--- OUTSIDE RECORDS SUMMARY | 2024-10-06 17:13 | XMS_ITS | Encounter Summary ---
Author Organization [facility] Address [address] [place] [address] Care Team Providers Care Warehouse Record Clerk Name Role Phone Guerrero Middleton PA-C Primary Care Provide r Encounter Details Date Type Department Care Team (Late st Contact Info) Description 10/13/2021 Telephone [facility] Oncology [address] [place] [address] Phoenix Riddle MD [address] [facility] [place] [address] Social History Tobacco Use Types [...] on file Legal Sex Female 6:07 AM MERCHANDISE CARRIER Gender Identity Not on file Sexual Orientation [...] Description 01/18/2025 3:00 PM CDT Office Visit [facility] Heart and Vascular - [address] [place] [address] Marlys Mayer MD [address] [place] [address] documented as of this encounter Visit Diagnoses Not on filedocumented in this encounter Additional Health Concerns Infection Onset Date Last Indicated Resolved Time R/O GI Pathogen 09/19/2023 09/19/2023 09/21/2023 7 :33 AM CDT documented as of this encounter Care Teams Warehouse Record Clerk Relationship Specialty Start Date End Date Guerrero Middleton PA-C PCP - General Physician Db2 Dba 02/13/18 documented as of this encounter
--- OUTSIDE RECORDS SUMMARY | 2024-10-06 17:13 | XMS_ITS | Encounter Summary ---
Author Organization [facility] Address [address] [place] [address] Care Team Providers Care Small Arms Artillery Repairer Name Role Phone Guerrero Middleton PA-C Primary Care Provide r Encounter Details Date Type Department Care Team (Late st Contact Info) Description 03/14/2022 Telephone [facility] Donor Services [facility] [address] [place] [address] Phoenix Riddle MD [address] [facility] [place] [address] Social History Tobacco Use Types [...] on file Legal Sex Female 6:07 AM POWER CHECKER Gender Identity Not on file Sexual Orientation Not on file Occupation Industry Job Start Date Job End Date Not on file Not on file Not on file Not on file documented as of this encounter Plan of Treatment Upcoming Encounters Date Type Department Care Team (Late st Contact Info) Description 01/18/2025 3:00 PM CDT Office [facility] [address] [place] [address] Marlys Mayer MD [address] [place] [address] documented as of this encounter Visit Diagnoses Not on filedocumented in this encounter Additional Health Concerns Infection Onset Date Last Indicated Resolved Time R/O GI Pathogen 09/19/2023 09/19/2023 09/21/2023 7 :33 AM CDT documented as of this encounter Care Teams Small Arms Artillery Repairer Relationship Specialty Start Date End Date Guerrero Middleton PA-C PCP - General Physician Band Leader 02/13/18 documented as of this encounter
--- OUTSIDE RECORDS SUMMARY | 2024-10-06 17:13 | XMS_ITS | Clinical Summary ---
Author Organization [facility] Address [address] [place] [address] Care Team Providers Care Design Assembler Name Role Phone Mauri Jaime MD Primary Care Provider [phone] Guerrero Middleton PA Unavailable [phone] Allergies Active Allergy Reactions Criticality Noted Date [...] tablet TAKE 1 TABLET BY MOUTH EVERY AIRPORT DRIVER 022 Active fenofibrate (TRIGLIDE) 160 mg tablet [...] on file Legal Sex Female 5:05 AM SLASHER TENDER Gender Identity Not on file Sexual Orientation Not on file Obstetrics History Last Filed Vital Signs Vital Sign Reading Time Taken Comments Blood Pressure 101/62 06/05/2023 11:38 AM SLASHER TENDER Pulse 76 06/05/2023 11:38 AM SLASHER TENDER Temperature 36.4 C (97.5 F) 06/05/2023 10:35 AM SLASHER TENDER Respiratory Rate 22 06/05/2023 11:38 AM SLASHER TENDER Oxygen Saturation 94% 06/05/2023 11:38 AM SLASHER TENDER Inhaled Oxygen Concentration - - Weight 81.6 kg (180 lb) 06/05/2023 8:58 AM SLASHER TENDER Height 165.1 cm (5' 5) 06/05/2023 8:58 AM SLASHER TENDER Body Mass Index 29.95 06/05/2023 8:58 AM SLASHER TENDER Plan of Treatment Health Maintenance Due [...] 03/04/2021, Additional history exists Insurance [facility] [facility] ADVANTRA [facility] [employer] [facility] [employer] Care Teams Design Assembler Relationship Specialty Start Date End Date Mauri Jaime MD [address] [facility] [address] [place] [address] PCP - General Internal Medicine 05/28/23 Guerrero Middleton PA [address] [facility] [address] [place] [address] 05/28/23
--- OUTSIDE RECORDS SUMMARY | 2024-10-06 17:13 | XMS_ITS | Referral Summary ---
Author Organization [facility] Address [address] [place] [address] Care Team Providers Care Fence Setter Name Role Phone Mauri Jaime MD Primary Care Provider [phone] Guerrero Middleton PA Unavailable [phone] Allergies Active Allergy Reactions Criticality Noted Date [...] tablet TAKE 1 TABLET BY MOUTH EVERY SLURRY TANK OPERATOR 022 Active fenofibrate (TRIGLIDE) 160 mg [...] on file Legal Sex Female 5:05 AM BOTTOM CRANE OPERATOR Gender Identity Not on file Sexual Orientation Not on file Last Filed Vital Signs Vital Sign Reading Time Taken Comments Blood Pressure 101/62 06/05/2023 11:38 AM BOTTOM CRANE OPERATOR Pulse 76 06/05/2023 11:38 AM BOTTOM CRANE OPERATOR Temperature 36.4 C (97.5 F) 06/05/2023 10:35 AM BOTTOM CRANE OPERATOR Respiratory Rate 22 06/05/2023 11:38 AM BOTTOM CRANE OPERATOR Oxygen Saturation 94% 06/05/2023 11:38 AM BOTTOM CRANE OPERATOR Inhaled Oxygen Concentration - - Weight 81.6 kg (180 lb) 06/05/2023 8:58 AM BOTTOM CRANE OPERATOR Height 165.1 cm (5' 5) 06/05/2023 8:58 AM BOTTOM CRANE OPERATOR Body Mass Index 29.95 06/05/2023 8:58 AM BOTTOM CRANE OPERATOR Plan of Treatment Not on file Insurance [facility] [employer] [facility] [employer] [facility] [employer]TRA [facility] [employer] Care Teams Fence Setter Relationship Specialty Start Date End Date Mauri Jaime MD [address] [place] [address] PCP - General Internal Medicine 05/28/23 Guerrero Middleton PA [address] [place] [address] 05/28/23
--- OUTSIDE RECORDS SUMMARY | 2024-10-06 17:13 | XMS_ITS | Encounter Summary ---
Author Organization [facility] Address [address] [place] [address] Care Team Providers Care Drawbridge Operator Name Role Phone Guerrero Middleton PA-C Primary Care Provide r Encounter Details Date Type Department Care Team (Late st Contact Info) Description 10/26/2021 Telephone [facility] Donor Services [address] [address] Nicole Rosas MD [address] [place] [address] Social History Tobacco Use Types [...] on file Legal Sex Female 6:07 AM VAN DRIVER Gender Identity Not on file Sexual Orientation Not on file Occupation Industry Job Start Date Job End Date Not on file Not on file Not on file Not on file documented as of this encounter Plan of Treatment Upcoming Encounters Date Type Department Care Team (Late st Contact Info) Description 01/18/2025 3:00 PM CDT Office Visit [facility] Heart and Vascular - [facility] [address] [place] [address] Marlys Mayer MD [address] [place] [address] documented as of this encounter Visit Diagnoses Not on filedocumented in this encounter Additional Health Concerns Infection Onset Date Last Indicated Resolved Time R/O GI Pathogen 09/19/2023 09/19/2023 09/21/2023 7 :33 AM CDT documented as of this encounter Care Teams Drawbridge Operator Relationship Specialty Start Date End Date Guerrero Middleton PA-C PCP - General Physician Hospice Aide 02/13/18 documented as of this encounter
--- OUTSIDE RECORDS SUMMARY | 2024-10-06 17:13 | XMS_ITS | Encounter Summary ---
Author Organization [facility] Address [address] [place] [address] Care Team Providers Care Bindery Machine Tender Name Role Phone Guerrero Middleton PA-C Primary Care Provide r Reason for Visit * Reason Onset Date Comments OTHER 11/21/2021 Encounter Details Date Type Department Care Team (Late st Contact Info) Description 11/21/[address] [facility] Oncology [address] [place] [address] Nicole Rosas MD [address] [place] [address] OTHER Social History Tobacco Use [...] on file Legal Sex Female 6:07 AM FINE ARTS PACKER Gender Identity Not on file Sexual Orientation Not on file Occupation Industry Job Start Date Job End Date Not on file Not on file Not on file Not on file documented as of this encounter Plan of Treatment Upcoming Encounters Date Type Department Care Team (Late st Contact Info) Description 01/18/2025 3:00 PM CDT Office Visit [facility] Heart and Vascular - [facility] [address] [place] [address] Marlys Mayer MD [address] [place] [address] documented as of this encounter Visit Diagnoses Not on filedocumented in this encounter Additional Health Concerns Infection Onset Date Last Indicated Resolved Time R/O GI Pathogen 09/19/2023 09/19/2023 09/21/2023 7 :33 AM CDT documented as of this encounter Care Teams Bindery Machine Tender Relationship Specialty Start Date End Date Guerrero Middleton PA-C PCP - General Physician Citrus Peeler 02/13/18 documented as of this encounter
--- OUTSIDE RECORDS SUMMARY | 2024-10-06 17:13 | XMS_ITS | Clinical Summary ---
Author Organization [facility] Address [address] [place] [address] Phone Care Team Providers Care Bottom Ironer Name Role Phone Guerrero Middleton PA-C Primary [...] 48h post LHC 4 Active Blood-Glucose Sensor ([employer] G7 Sensor) Device 4 Active buPROPion HCL [...] be different from the original. Marlys Mayer MD--Technician ([facility] @ ) Problem [...] [facility] - [facility] [address] [place] [address] Marlys Mayer MD Mixed hyperlipidemia (Primary Dx); Chylomicronemia syndrome; Coronary artery disease involving [place] coronary artery of [place] heart without angina pectoris; Type 1 diabetes mellitus without complication ([facility]/HCC) 09/08/2024 External Device Data STL ABSTRACTION Provider, Abstract 09/08/2024 External Device Data STL ABSTRACTION Provider, Abstract 09/08/2024 External Device Data STL ABSTRACTION Provider, Abstract 08/11/2024 Abstract [facility] Heart and Vascular At [place] [address] [facility] [address] [place] [address] Marlys Mayer MD from Last 3 Months Immunizations Immunization Administration [...] attend [facility] or buddhist services? Never 08/21/2018 Do [...] on file Legal Sex Female 6:07 AM RAILROAD ACCOUNTANT Gender Identity Not on file Sexual Orientation [...] Description 01/18/2025 3:00 PM CDT Office [facility] [address] [place] [address] Marlys Mayer MD [address] [place] [address] Health Maintenance Due Date Last [...] history exists Medical Devices Implanted Type Area Tank Builder Helper Device Identifier Shelf Expiration Date Model / Serial / Lot Cath Hemodlys Glidespath 23cm [id number] Implanted:Qty : 1 on 04/10/2018 by Kayla Sheffield MD Catheter CR [employer]ARD[employer] [id number] 08/27/2019 [id number] / / [id number] Description:14.5fr x 23cm; R IJ Port-10/29/2018 Implanted:Qty : 2 on 10/29/2018 by Laverne Willoughby MD Explanted:Qty : 1 on 02/18/2019 by Michael Powell MD Port Right: Chest Wall CR BARD- ACCESS SYS 07/28/2019 / / [id number] Description:two 9.6fr fower flow apheresis ports placed by Dr. Willoughby Port- 0 Implanted:Qty : 1 on 05/11/2019 by Alfa Forrest MD Port Left: Chest Wall CR [employer] ACCESS SYS 08/26/2020 / / [id number] Stent Synergy Xd 4.0x12mm Evrlms Elut [id number] - [id number] Implanted:Qty : 1 on 11/29/2023 by Miguel Lewis MD at [facility] Stent N/A: Coronary TopOPPS GRISELDA [id number] 03/19/2024 [id number] / / [id number] Procedures Procedure Name Priority Date/Time Associated Diagnosis Comments LDL CHOLESTEROL, DIRECT Stat 09/19/2023 12:59 AM CDT HEMOGLOBIN A1C Routine 09/18/2023 10:18 PM CDT from Last 3 Months or Most Recently Relevant to Health Maintenance Results * LDL CHOLESTEROL, DIRECT (09/19/2023 12:59 AM CDT) LDL CHOLESTEROL, DIRECT 47 <100 mg/dL 09/19/2023 5:52 AM CDT [facility] Blood Venipuncture / Unknown 09/19/2023 12:59 AM CDT 09/19/2023 1:09 AM CDT Critical access hospital [employer] [facility] - 09/19/2023 5:52 AM CDT LDL [...] ORDERABLES Fin al Result Performing Organization Address [facility]/ZIP Co de Phone Number [facility] [employer] [facility]# [id number] [address] [facility] [facility] [place] [place] [address] * (ABNORMAL) HEMOGLOBIN A1C (09/18/2023 10:18 PM CDT) HEMOGLOBIN A1C 9.7(H) <5.7 % 09/19/2023 10:59 AM CDT [facility] EST. AVG GLUCOSE, A1C 232 mg/dL 09/19/2023 10:59 AM CDT [facility] Blood Venipuncture / Unknown 09/18/2023 10:18 PM CDT 09/18/2023 10:26 PM CDT Critical access hospital [employer] [facility] - 09/19/2023 10:59 AM CDT HGB A1C INTERPRETATION NORMAL: <5.7% PRE-DIABETES: 5.7 - 6.4% DIABETES: 6.5% OR GREATER Herlinda Mederos DO CHEMISTRY ORDERABLES Final Resul t Performing Organization Address City/[facility]/ZIP Co de Phone Number [facility]# [id number] [place] [address] from Last 3 Months or Most Recently Relevant to Health Maintenance Insurance RX [employer] Medicare Part D RX [employer]O PLANS (INTERNAL) [facility] RX [employer] PLANS (INTERNAL) [facility] [employer] [place] [address] [place] [id number] Advance Directives For more information, please contact: [phone] * Full Code (Latest Code Status on [...] 12:11 AM 01/02/2021 4:26 PM Care Teams Bottom Ironer Relationship Specialty Start Date End Date Guerrero Middleton PA-C PCP - General Physician Anesthesiology Technologist 02/13/18
--- OUTSIDE RECORDS SUMMARY | 2024-10-06 17:13 | XMS_ITS | Encounter Summary ---
Author Organization [facility] Address [address] [place] [address] Care Team Providers Care Tool Checker Name Role Phone Guerrero Middleton PA-C Primary Care Provide r Reason for Visit * Reason Onset Date Comments petr rubin 09/13/2021 Encounter Details Date Type Department Care Team (Late st Contact Info) Description 09/13/2021 Telephone [facility] Donor Services [address] [address] Gloria Tristan, RN petr [facility] Social History Tobacco Use Types Packs/Day [...] on file Legal Sex Female 6:07 AM CRM TECHNICAL LEAD Gender Identity Not on file Sexual Orientation [...] Description 01/18/2025 3:00 PM CDT Office Visit [facility] [address] [place] [address] Marlys Mayer MD [address] [place] [address] documented as of this encounter Visit Diagnoses Not on filedocumented in this encounter Additional Health Concerns Infection Onset Date Last Indicated Resolved Time R/O GI Pathogen 09/19/2023 09/19/2023 09/21/2023 7 :33 AM CDT documented as of this encounter Care Teams Tool Checker Relationship Specialty Start Date End Date Guerrero Middleton PA-C PCP - General Physician Sheet Metal Technician 02/13/18 documented as of this encounter
--- OUTSIDE RECORDS SUMMARY | 2024-10-06 17:13 | XMS_ITS | Clinical Summary ---
Author Organization [facility] Address [address] [address] Phone Care Team Providers Care Meat Washer Name Role Phone Jose G Palmer MD Unavailable [phone] Guerrero Middleton Primary Care Provider Social History [...] to complete this topic Insurance Care Teams Meat Washer Relationship Specialty Start Date End Date Guerrero Middleton PAC [address] [place] [address] PCP - General Physician Railroad Signal And Switch Operator 12/10/16 Jose G Palmer MD Consulting Physician Gastroenterology 12/10/16
--- OUTSIDE RECORDS SUMMARY | 2024-10-06 17:13 | XMS_ITS | Encounter Summary ---
Author Organization [facility] Address [address] [place] [address] Care Team Providers Care Dispensing Operator Name Role Phone Guerrero Middleton PA-C Primary Care Provide r Encounter Details Date Type Department Care Team (Late st Contact Info) Description 01/04/2022 Telephone [facility] Donor Services [facility] [address] [place] [address] Phoenix Riddle MD [address] [place] [address] Social History Tobacco Use Types [...] on file Legal Sex Female 6:07 AM HOSPICE LIAISON Gender Identity Not on file Sexual Orientation [...] [facility] Heart [facility] - [address] [place] [address] Marlys Mayer MD [address] [place] [address] documented as of this encounter Visit Diagnoses Not on filedocumented in this encounter Additional Health Concerns Infection Onset Date Last Indicated Resolved Time R/O GI Pathogen 09/19/2023 09/19/2023 09/21/2023 7 :33 AM CDT documented as of this encounter Care Teams Dispensing Operator Relationship Specialty Start Date End Date Guerrero Middleton PA-C PCP - General Physician Him Coder 02/13/18 documented as of this encounter
--- OUTSIDE RECORDS SUMMARY | 2024-10-06 17:13 | XMS_ITS | Encounter Summary ---
Author Organization [facility] Address [address] [place] [address] Care Team Providers Care Nightman Name Role Phone Guerrero Middleton PA-C Primary Care Provide r Reason for Visit * Reason Onset Date Comments Bard Port flush 11/16/2021 Attempted to patel ch pt due to needing bard port flushes Encounter Details Date Type Department Care Team (Late st Contact Info) Description 11/16/2021 Telephone [facility] [address] [place] [address] Nicole Rosas MD [address] [place] [address] Bard Port flush (Attempted to [...] on file Legal Sex Female 6:07 AM TEST ENGINE OPERATOR Gender Identity Not on file Sexual Orientation Not on file Occupation Industry Job Start Date Job End Date Not on file Not on file Not on file Not on file documented as of this encounter Plan of Treatment Upcoming Encounters Date Type Department Care Team (Late st Contact Info) Description 01/18/2025 3:00 PM CDT Office Visit [facility] Heart and Vascular - [facility] [address] [place] [address] Marlys Mayer MD [address] [place] [address] documented as of this encounter Visit Diagnoses Not on filedocumented in this encounter Additional Health Concerns Infection Onset Date Last Indicated Resolved Time R/O GI Pathogen 09/19/2023 09/19/2023 09/21/2023 7 :33 AM CDT documented as of this encounter Care Teams Nightman Relationship Specialty Start Date End Date Guerrero Middleton PA-C PCP - General Physician Framer 02/13/18 documented as of this encounter
--- OUTSIDE RECORDS SUMMARY | 2024-10-06 17:13 | XMS_ITS | Encounter Summary ---
Author Organization [facility] Address [address] [place] [address] Care Team Providers Care Senior Firewall Engineer Name Role Phone Guerrero Middleton PA-C Primary Care Provide r Encounter Details Date Type Department Care Team (Late st Contact Info) Description 12/08/2021 Telephone [facility] Donor Services [facility] [address] [place] [address] Phoenix Riddle MD [address] [facility] Department [place] [address] Social History Tobacco Use Types [...] on file Legal Sex Female 6:07 AM FELT CHECKER Gender Identity Not on file Sexual Orientation Not on file Occupation Industry Job Start Date Job End Date Not on file Not on file Not on file Not on file documented as of this encounter Plan of Treatment Upcoming Encounters Date Type Department Care Team (Late st Contact Info) Description 01/18/2025 3:00 PM CDT Office Visit [facility] [address] [place] [address] Marlys Mayer MD [address] [place] [address] documented as of this encounter Visit Diagnoses Not on filedocumented in this encounter Additional Health Concerns Infection Onset Date Last Indicated Resolved Time R/O GI Pathogen 09/19/2023 09/19/2023 09/21/2023 7 :33 AM CDT documented as of this encounter Care Teams Senior Firewall Engineer Relationship Specialty Start Date End Date Guerrero Middleton PA-C PCP - General Physician Weaver Hand Loom 02/13/18 documented as of this encounter
--- OUTSIDE RECORDS SUMMARY | 2024-10-06 17:13 | XMS_ITS | Encounter Summary ---
Author Organization [facility] Address 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 [address] [place] [address] Marlys Mayer MD [address] [place] [address] documented as of this encounter Visit Diagnoses Not on filedocumented in this encounter Additional Health Concerns Infection Onset Date Last Indicated Resolved Time R/O GI Pathogen 09/19/2023 09/19/2023 09/21/2023 7 :33 AM CDT documented as of this encounter Care Teams Combustion Analyst Relationship Specialty Start Date End Date Guerrero Middleton PA-C PCP - General Physician Electric Shipyard Operator 02/13/18 documented as of this encounter
--- NOTE | 2024-10-06 17:38 | ED_ITS ---
HPI - General Adult General Chief complaint: Abdominal Pain Stated complaint: Abd pain Time Seen by Provider: 10/06/24 15:57 History of Present Illness HPI narrative: This is a 48 year-old female with chronic abdominal pain due to pancreatitis and gastroparesis who is well known to our emergency department presenting for abdominal pain. Patient says that when she was discharged on September 27 she did not have the supplies for her insulin infusion pump. Her symptoms started at 9:30 a.m. today and her sharp pain in the left upper quadrant radiating to her back. She has had multiple episodes of nausea and vomiting. She denies fevers, chest pain difficulty breathing or urinary symptoms. Related Data Home Medications ?Medication ?Instructions ?Recorded ?Confirmed ?Last Taken ?Type citalopram 40 mg tablet 40 mg PO DAILY 08/31/23 09/22/24 09/21/24 History bupropion HCl 150 mg tablet,12 hr 150 mg PO HS 10/09/23 09/22/24 09/21/24 History sustained-release metoprolol succinate 25 mg 12.5 mg PO DAILY 03/31/24 09/22/24 09/21/24 History tablet,extended release 24 hr olezarsen 80 mg/0.8 mL 80 mg subcut MONTHLY 09/16/24 09/22/24 09/21/24 History subcutaneous auto-injector (Tryngolza) Allergies Allergy/AdvReac Type Severity Reaction Status Date / Time adhesive tape Allergy Mild Rash Verified 10/06/24 16:03 [place] pepper (green pepper) Allergy Unknown Hives Verified 10/06/24 16:03 sucralose (From Splenda Allergy Migraine Verified 10/06/24 16:03 (sucralose)) Artificial Sweetners AdvReac Migraine Uncoded 10/06/24 16:03 [facility] Past Medical History Medical History Gastroparesis Chylomicronemia syndrome CAD (coronary artery disease) Anxiety BMI 31.0-31.9,adult Hx of fci use of blood thinners Abnormal CT scan, esophagus Nausea Occult blood in stools Colon cancer screening Hypertriglyceridemia PCOS (polycystic ovarian syndrome) GERD (gastroesophageal reflux disease) 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 Allergic rhinitis Insulin dependent diabetes mellitus Chronic pancreatitis (~09/02/23) Port-A-Cath in place Lipoprotein deficiency Hyperlipemia Headache Surgical History Surgical History History of wisdom tooth extraction History of tubal ligation History of partial hysterectomy History of endometrial ablation History of appendectomy History of loop electrical excision procedure (LEEP) History of exploratory laparotomy History of dilatation and curettage History of conization of cervix History of tonsillectomy Family History Family History Father Alcohol abuse Hypercholesteremia Hypertension Family history of alcoholism Family history of cardiovascular disease Diabetes mellitus Mother Hypercholesteremia Hypothyroid Cerebrovascular accident Family history of cardiovascular disease Diabetes mellitus Grandparent Skin cancer Colon cancer Heart disease Hypothyroid Cerebrovascular accident Sibling Autoimmune disorder Hypothyroid Kidney disorder Hypertension Diabetes mellitus Other Family history of kidney disease Social History Social History Social History: She smokes up to 1ppd since age 16yo. No alcohol or drug use. She has dog and a cat at home. Surrogate medical decision maker: José Miguel Jones, spouse. Code status: Full Smoking packs per day: 0.5 Smoking cigarettes per day: 10.0 Years smoked: 20 Smoking pack-years: 10.00 Smoking status: Current every day smoker Tobacco type: cigarettes Second hand tobacco smoke exposure: No Alcohol intake: never Drinks per week: 0 Substance use: never Substance use type: does not use Do You Feel Safe in your Home?: Yes Lack of Transportation: No Lack of Food: Never True Current Housing: I Have Housing Concerned About Future Housing: No Difficulty Paying Gas/Electric Bills: No Difficulty Paying for Meds: No Currently Unemployed: No Education: Decline to Answer Difficulty w/ Childcare or Family Care: No Living arrangements: with family Occupation/Education: retired 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 Patient is tearful Head: atraumatic. EYES: EOMI, NOSE: Atraumatic NECK: Trachea midline RESPIRATORY: No increased rate of breathing CTAB CARDIOVASCULAR: RRR, no peripheral edema ABDOMINAL: Tenderness palpation the left upper quadrant with voluntary guarding, left CVA tenderness MUSCULOSKELETAl: No obvious deformities NEURO: Alert. Moving 4/4 extremities SKIN:: Warm, dry. Normal color PSYCHIATRIC: Normal affect Course Vital Signs Vital signs: Vital Signs Temperature 98.0 F 10/06/24 15:49 Pulse Rate 86 10/06/24 15:49 Respiratory Rate 14 10/06/24 15:49 Blood Pressure 117/65 10/06/24 15:49 Pulse Oximetry 100 10/06/24 15:49 Oxygen Delivery Room Air 10/06/24 15:49 Temperature 98.0 F 10/06/24 15:49 Pulse Rate 91 10/06/24 20:01 Respiratory Rate 16 10/06/24 20:01 Blood Pressure 151/91 H 10/06/24 20:01 Pulse Oximetry 96 10/06/24 20:01 Oxygen Delivery Room Air 10/06/24 15:49 Medical Decision Making MDM Narrative Medical decision making narrative: -Course: 48-year-old female with chronic abdominal pain presenting with abdominal pain. Lipase was normal. Triglycerides were significantly elevated. CT abdomen pelvis did not show evidence of pancreatitis. There was a 2 mm kidney stone in the distal ureter with moderate hydronephrosis which explains the patient's symptoms. No fevers or evidence of infection. Patient's pain was controlled with Dilaudid, Toradol, and Tylenol. She will be discharged with urology. Follow-up return precautions. Patient is on chronic opiate therapy due to her recurrent pancreatitis. She has likely started to develop opiate hyperalgesia at this point and I expect she will have difficulty controlling her pain to make it to her outpatient therapy. High likelihood of bouncing back. -DDX includes but is not limited to: Chronic pancreatitis, gastroparesis, kidney stone Vital Signs Vital Signs: Vital Signs Temperature 98.0 F 10/06/24 15:49 Pulse Rate 86 10/06/24 15:49 Respiratory Rate 14 10/06/24 15:49 Blood Pressure 117/65 10/06/24 15:49 Pulse Oximetry 100 10/06/24 15:49 Oxygen Delivery Room Air 10/06/24 15:49 Temperature 98.0 F 10/06/24 15:49 Pulse Rate 91 10/06/24 20:01 Respiratory Rate 16 10/06/24 20:01 Blood Pressure 151/91 H 10/06/24 20:01 Pulse Oximetry 96 10/06/24 20:01 Oxygen Delivery Room Air 10/06/24 15:49 Lab Data 10/06/24 16:11 10/06/24 16:11 Labs: Lab Results 10/06/24 10/06/24 Range/Units 16:03 16:11 WBC 14.1 H (4.5-10.0) K/mm3 RBC 4.35 (4.2-5.4) M/mm3 Hgb 12.6 (12.0-15.0) g/dL Hct 38.6 (37.0-47.0) % MCV 88.7 (80-100) fl MCH 29.0 (26-34) pg MCHC 32.6 (32-36) g/dl RDW 14.1 (11.5-14.5) % Plt Count 344 D (150-375) k/mm3 MPV 9.4 (7.4-10.4) fl Immature Gran % (Auto) 0.9 H (0-0.5) % Neut % (Auto) 83.4 H (45.5-73.1) % Lymph % (Auto) 9.5 L (18.3-44.2) % [place] % (Auto) 5.7 (2.6-8.5) % Eos % (Auto) 0.2 (0-4.4) % Baso % (Auto) 0.3 (0.2-1.2) % Lymph # (Auto) 1.34 (0.9-3.2) K/mm3 [place] # (Auto) 0.8 H (0.1-0.6) K/mm3 Eos # (Auto) 0.0 (0-0.3) K/mm3 Baso # (Auto) 0.0 (0.0-0.1) K/mm3 Abs Immat Gran (auto) 0.13 H (0.00-0.031) K/mm3 Absolute Neuts (auto) 11.8 H (1.3-6.7) K/mm3 Absolute Nucleated RBC 0.000 (0.0-0.012) K/mm3 Nucleated RBC % 0.0 (0.0-0.2) % Sodium 137 (137-145) mmol/L Potassium 3.9 (3.4-5.0) mmol/L Chloride 103 (98-107) mmol/L Carbon Dioxide 20 L (22-30) mmol/L Anion Gap 14 H (4-12) mmol/L BUN 13 D (7-17) mg/dL Creatinine 0.86 (0.7-1.0) mg/dL Estim Creat Clear Calc 73 ml/min Estimated GFR > 60 (59 - ) Glucose 385 H (65-110) mg/dL POC Capillary Glucose 390 H (65-105) mg/dl Calcium 9.6 (8.4-10.2) mg/dL Total Bilirubin 0.5 (0.2-1.3) mg/dL AST 34 (14-36) U/L ALT 27 (6-35) U/L Alkaline Phosphatase 86 (38-126) U/L Total Protein 7.6 (6.3-8.2) g/dL Albumin 4.8 (3.5-5.1) g/dL Triglycerides 231 H (<150) mg/dL Lipase 98 (23-300) U/L Urine Color Yellow (Yellow) Urine Appearance Clear (Clear) Urine pH 5.0 (5.0-9.0) Ur Specific [place] 1.042 H (1.001-1.035) Urine Protein Trace (Negative) mg/dL Urine Glucose (UA) 2+ H (Negative) mg/dL Urine Ketones 2+ H (Negative) mg/dL Ur Blood (Man) 1+ H (Negative) Urine Nitrate Negative (Negative) Urine Bilirubin Negative (Negative) Urine Urobilinogen 0.2 (<2.0) mg/dL Leukocyte Esterase Rfl Negative (Negative) STEPHEN/UL Urine RBC 11-20 H (0-2) /hpf Urine WBC 0-5 (0-3) /hpf Ur Squamous Epith Cells None seen (Few) /hpf Urine Bacteria None seen /hpf Urine Casts 0-2 Urine Opiates Screen Negative (Negative) Urine Methadone Screen Negative (Negative) Ur Barbiturates Screen Negative (Negative) Ur Phencyclidine Scrn Negative (Negative) Ur Amphetamine Screen Negative (Negative) U Benzodiazepines Scrn Negative (Negative) Urine Cocaine Screen Negative (Negative) U Cannabinoids Screen Negative (Negative) Discharge Plan Discharge Clinical Impression: Kidney stone Patient Disposition: Home Condition: Stable Instructions: Antibiotic Form, Kidney Stones (ED) Additional Instructions: You were seen in the emergency department for a kidney stone. Please use Motrin/Tylenol for pain. Use oxycodone for breakthrough pain. Use Zofran for nausea. Use Flomax to help pass the stone. Please follow-up with your Urologist for further management. Please return if you develop severe pain, fevers or intractable nausea and vomiting. Patient Language: Portuguese Prescriptions: New acetaminophen 500 mg tablet 1,000 mg PO TID PRN (Reason: qasim) 7 Days Qty: 42 0RF ibuprofen 800 mg tablet 800 mg PO TID PRN (Reason: pain) 7 Days Qty: 21 0RF tamsulosin [Flomax] 0.4 mg capsule 0.4 mg PO DAILY Qty: 30 0RF ondansetron 4 mg tablet,disintegrating 4 mg PO Q8H PRN (Reason: nausea and vomiting) Qty: 30 0RF oxycodone 5 mg tablet 5 mg PO Q4H PRN (Reason: pain) Qty: 14 0RF No Action metformin 500 mg tablet 1,000 mg PO BID Qty: 180 1RF Rx Instructions: with morning & evening meals Tryngolza 80 mg/0.8 mL auto-injector 80 mg subcut MONTHLY levothyroxine 200 mcg tablet 200 mcg PO DAILY Qty: 90 0RF pantoprazole [Protonix] 40 mg tablet,delayed release (DR/EC) 40 mg PO BID Qty: 30 0RF metoclopramide HCl 5 mg tablet 5 mg PO TIDWMEAL 30 Days Qty: 90 11RF aspirin 81 mg Tablet,Delayed Release (Dr/Ec) 81 mg PO QAM Qty: 30 0RF citalopram 40 mg tablet 40 mg PO DAILY Rx Instructions: TAKE 1 TABLET BY MOUTH EVERY DAY bupropion HCl 150 mg tablet sustained-release 12 hr 150 mg PO HS ondansetron 4 mg tablet,disintegrating 4 mg PO Q8H PRN (Reason: nausea and vomiting) Qty: 10 0RF metoprolol succinate 25 mg tablet extended release 24 hr 12.5 mg PO DAILY docusate sodium 100 mg Capsule 100 mg PO Q12HR PRN (Reason: constipation) Qty: 20 0RF oxycodone-acetaminophen 5-325 mg tablet 1 tablet PO Q6H PRN (Reason: pain) Qty: 10 0RF Brilinta 90 mg tablet 90 mg PO BID Qty: 180 0RF fenofibrate 160 mg tablet 160 mg PO DAILY Qty: 90 1RF trazodone 100 mg tablet 200 mg PO HS Qty: 180 1RF lorazepam 1 mg tablet 1 mg PO QHS PRN (Reason: sleep) Qty: 90 0RF atorvastatin 80 mg tablet 80 mg PO HS Qty: 90 3RF insulin lispro [Humalog U-100 Insulin] 100 unit/mL solution 1 sliding scale dose subcut USEASDIRECTD MDD 60 Qty: 50 0RF Follow-up/Referrals: Julian Acosta MD [Physician] - 1 Week (kidney stone ) Jose Zuniga APRN [Primary Care Provider] -
[2024-10-06] MEDS: HYDROmorphone HCL INJ (*CRX) 2 MG/ML VIAL 1 MG IV PUSH ×2 (17:48→18:39)
[2024-10-06] MEDS: HALOPERIDOL LACTATE 5 MG/ML VIAL IM (17:55)
[2024-10-06] MEDS: LACTATED RINGERS 1,000 ML 999 ML IV CONT ×2 (18:01)
[2024-10-06] MEDS: LACTATED RINGERS 500 ML 999 ML IV CONT (18:02)
[2024-10-06 18:48] LABS: Triglycerides 231 mg/dL (<150)
[2024-10-06 19:26] LABS: Amphetamine Screen Urine Negative (Negative); Barbiturate Screen Urine Negative (Negative); Benzodiazepines Screen Urine Negative (Negative); Cannabinoid Screen Urine Negative (Negative); Cocaine Screen Urine Negative (Negative); Methadone Screen Urine Negative (Negative); Opiate Screen Urine Negative (Negative); Phencyclidine Screen Urine Negative (Negative)
[2024-10-06] MEDS: ACETAMINOPHEN 500 MG TABLET 1000 MG PO (21:28)
[2024-10-06] MEDS: METOCLOPRAMIDE HCL INJ 10 MG/2 ML VIAL IV PUSH (21:29)
[2024-10-06] MEDS: KETOROLAC 15 MG/ML VIAL (*BKC) IV PUSH (21:29)
== END 2024-10-06 22:10 | disposition home or self-care (01) ==
PROVIDERS: Emergency Provider Emergency Medicine; PCP Nurse Practitioner
DX: N13.2 Hydronephrosis with renal and ureteral calculous obstruction (principal); I25.10 Atherosclerotic heart disease of native coronary artery without angina pectoris; E11.43 Type 2 diabetes mellitus with diabetic autonomic (poly)neuropathy; K31.84 Gastroparesis; E78.1 Pure hyperglyceridemia; E28.2 Polycystic ovarian syndrome; E06.3 Autoimmune thyroiditis; E78.6 Lipoprotein deficiency; E78.5 Hyperlipidemia, unspecified; K86.1 Other chronic pancreatitis; K21.9 Gastro-esophageal reflux disease without esophagitis; F41.9 Anxiety disorder, unspecified; F17.210 Nicotine dependence, cigarettes, uncomplicated; Z90.711 Acquired absence of uterus with remaining cervical stump; Z79.84 Long term (current) use of oral hypoglycemic drugs; Z79.899 Other long term (current) drug therapy; Z79.82 Long term (current) use of aspirin; Z79.02 Long term (current) use of antithrombotics/antiplatelets; Z79.4 Long term (current) use of insulin; K76.0 Fatty (change of) liver, not elsewhere classified; R16.0 Hepatomegaly, not elsewhere classified; R93.3 Abnormal findings on diagnostic imaging of other parts of digestive tract
CPT/HCPCS: 36415; 74177; 80053; 80307; 81001; 82948; 83690; 84478; 85025; 96361; 96372; 96374; 96375; 96376; 99284; A9270; J1171; J1630; J1885; J2765; J7120; Q9967

== ENCOUNTER 2024-12-11 20:51 | Observation (INO) | payer MEDICARE, SELFPAY ==
--- NOTE | ~2024-12-11 | CT_ITS ---
CLINICAL INDICATION: Epigastric abdominal pain and chest pain with associated vomiting and diarrhea COMPARISON: 10/06/2024 and dating back to 10/09/2023. TECHNIQUE: Multiple contiguous axial images of the abdomen and pelvis were performed following the ad ministration of with 100 mL Omnipaque-350 intravenous contrast The dose-length product (DLP) was 728.70 mGy-cm. Automated exposure control and iterative reconstruction technique were employed. FINDINGS/OBSERVATIONS: Visualized lower thorax: Bibasilar atelectasis. The remainder of the bilateral lung bases are clear. The heart is borderline enlarged, without pericardial effusion. Small hiatal hernia is present. Liver: The liver demonstrates homogeneously decreased enhancement (consistent with fatty infiltration) and i s considerably enlarged measuring 24 cm in longitudinal dimension (increased from 21 cm on 10/06/2024) . Gallbladder and biliary system: The gallbladder is only minimally distended, and otherwise unremarkable. Pancreas: Prominence of the main pancreatic duct without mirza dilatation. The remainder of the pancreas otherwise enhances homogeneously. Spleen: Small focus of decreased attenuation adjacent to the caudal-most border of the spleen demonst rating soft tissue attenuation and measuring 10.7 mm in thickness. This focus appears to be adjacent to the mesentery, and has increased in size when it measured 7 mm, likely representing a benign entit y. The remainder of the spleen enhances homogeneously and is not enlarged. 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 The remainder of the bilateral kidneys otherwise enhance symmetrically without hydronephrosis or celia l calculi. Adrenal glands: Unremarkable. Gastrointestinal tract: Rectosigmoid diverticulosis without surrounding inflammatory change. Mural thickening of the distal esophagus and proximal stomach with trace surrounding inflammatory jeanne nge. Appendix: Surgically absent. Vasculature: Unremarkable. Lymph nodes: No pathologically enlarged or morphologically suspicious lymph nodes within the retroperitoneum or at the root of the mesentery. Pelvic structures: The bladder is distended, and otherwise unremarkable. The uterus is either surgically absent or atrophic. Body wall and musculoskeletal: No significant degenerative disease within the lower thoracic or lumbosacral spine. IMPRESSION: Mural thickening within the distal esophagus and proximal stomach for which a gastroenteritis is susp ected. Fatty infiltration of an enlarged liver. Reviewed, dictated and finalized at location A. IMPRESSION: Mural thickening within the distal esophagus and proximal stomach for which a g astroenteritis is suspected. Fatty infiltration of an enlarged liver.
--- OUTSIDE RECORDS SUMMARY | 2024-12-11 20:53 | XMS_ITS | Encounter Summary ---
Author Organization [facility] Address [address] [place] [address] Care Team Providers Care Lag Screwer Name Role Phone Guerrero Middleton PA-C Primary Care Provide r Encounter Details Date Type Department Care Team (Late Contact Info) Description 11/30/2021 Telephone [facility] Donor Services [facility] [address] [place] [address] Nicole Rosas MD [address] [place] [address] Social History Tobacco Use Types Packs/Day Years Used Date Smoking Tobacco: Every Day Cigarettes 1 18 Smokeless Tobacco: Never Comments:nicotine patch requ ested Alcohol Use Standard Drinks/Week Comments No 0 (1 standard drink = 0.6 oz pur e alcohol) Comments No Sex and Gender Information Value Date Recorded Sex Assigned at Not on file Legal Sex Female 6:07 AM FURNACE FITTER Gender Identity Not on file Sexual Orientation Not on file Occupation Industry Job Start Date Job End Date Not on file Not on file Not on file Not on file documented as of this encounter Plan of Treatment Upcoming Encounters Date Type Department Care Team (Late Contact Info) Description 01/18/2025 3:00 PM CDT Office Visit [facility] Heart and Vascular - [facility] [address] [place] [address] Marlys Mayer MD [address] [facility] [address] [place] [address] documented as of this encounter Visit Diagnoses Not on filedocumented in this encounter Additional Health Concerns Infection Onset Date Last Indicated Resolved Time R/O GI Pathogen 09/19/2023 09/19/2023 09/21/2023 7 :33 AM CDT documented as of this encounter Care Teams Lag Screwer Relationship Specialty Start Date End Date Guerrero Middleton PA-C PCP - General Physician Silo Operator 02/13/18 documented as of this encounter
--- OUTSIDE RECORDS SUMMARY | 2024-12-11 20:53 | XMS_ITS | Encounter Summary ---
Author Organization [facility] Address [address] [place] [address] Care Team Providers Care Electric Fan Assembler Name Role Phone Guerrero Middleton PA-C Primary Care Provide r Encounter Details Date Type Department Care Team (Late Contact Info) Description 12/08/2021 Telephone [facility] Donor Services [facility] [address] [place] [address] Phoenix Riddle MD [address] [facility] [place] [address] Social History Tobacco Use Types Packs/Day Years Used Date Smoking Tobacco: Every Day Cigarettes 1 18 Smokeless Tobacco: Never Comments:nicotine patch requ ested Alcohol Use Standard Drinks/Week Comments No 0 (1 standard drink = 0.6 oz pur e alcohol) Comments No Sex and Gender Information Value Date Recorded Sex Assigned at Not on file Legal Sex Female 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 Gender Identity Not on file Sexual Orientation Not on file Occupation Industry Job Start Date Job End Date Not on file Not on file Not on file Not on file documented as of this encounter Plan of Treatment Upcoming Encounters Date Type Department Care Team (Late Contact Info) Description 01/18/2025 3:00 PM CDT Office Visit [facility] Heart and Vascular - [facility] [address] [place] [address] Marlys Mayer MD [address] [facility] [address] [place] [address] documented as of this encounter Visit Diagnoses Not on filedocumented in this encounter Additional Health Concerns Infection Onset Date Last Indicated Resolved Time R/O GI Pathogen 09/19/2023 09/19/2023 09/21/2023 7 :33 AM CDT documented as of this encounter Care Teams Electric Fan Assembler Relationship Specialty Start Date End Date Guerrero Middleton PA-C PCP - General Physician Lean Coach 02/13/18 documented as of this encounter
--- OUTSIDE RECORDS SUMMARY | 2024-12-11 20:53 | XMS_ITS | Encounter Summary ---
Author Organization [facility] Address [address] [place] [address] Care Team Providers Care Automotive Title Clerk Name Role Phone Guerrero Middleton PA-C Primary Care Provide r Reason for Visit * Reason Onset Date Comments port flush 09/13/2021 Encounter Details Date Type Department Care Team (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 Contact Info) Description 01/18/2025 3:00 PM CDT Office Visit [facility] Heart and Vascular - [facility] [address] [place] [address] Marlys Mayer MD [address] [place] [address] documented as of this encounter Visit Diagnoses Not on filedocumented in this encounter Additional Health Concerns Infection Onset Date Last Indicated Resolved Time R/O GI Pathogen 09/19/2023 09/19/2023 09/21/2023 7 :33 AM CDT documented as of this encounter Care Teams Automotive Title Clerk Relationship Specialty Start Date End Date Guerrero Middleton PA-C PCP - General Physician Senior C Software Developer 02/13/18 documented as of this encounter
--- OUTSIDE RECORDS SUMMARY | 2024-12-11 20:53 | XMS_ITS | Encounter Summary ---
Author Organization [facility] Address [address] [place] [address] Care Team Providers Care Player Development Manager Name Role Phone Guerrero Middleton PA-C Primary Care Provide r Encounter Details Date Type Department Care Team (Late Contact Info) Description 10/26/[address] 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 Gender Identity Not on file Sexual Orientation Not on file Occupation Industry Job Start Date Job End Date Not on file Not on file Not on file Not on file documented as of this encounter Plan of Treatment Upcoming Encounters Date Type Department Care Team (Late Contact Info) Description 01/18/2025 3:00 PM CDT Office Visit [facility] Heart and Vascular - [facility] [address] [place] [address] Marlys Mayer MD [address] [facility] [address] [place], [place] [address] documented as of this encounter Visit Diagnoses Not on filedocumented in this encounter Additional Health Concerns Infection Onset Date Last Indicated Resolved Time R/O GI Pathogen 09/19/2023 09/19/2023 09/21/2023 7 :33 AM CDT documented as of this encounter Care Teams Player Development Manager Relationship Specialty Start Date End Date Guerrero Middleton PA-C PCP - General Physician Burlapper 02/13/18 documented as of this encounter
--- OUTSIDE RECORDS SUMMARY | 2024-12-11 20:53 | XMS_ITS | Encounter Summary ---
Author Organization [facility] Address [address] [place] [address] Care Team Providers Care Rides Attendant Name Role Phone Guerrero Middleton PA-C Primary Care Provide r Encounter Details Date Type Department Care Team ([facility] Contact Info) Description 10/13/2021 Telephone [facility] Oncology [address] [place] [address] Phoenix Riddle MD [address] [facility] [place] [address] Social History Tobacco Use Types Packs/Day Years Used Date Smoking Tobacco: Every Day Cigarettes 1 18 Smokeless Tobacco: Never Comments:nicotine patch requ ested Alcohol Use Standard Drinks/Week Comments No 0 (1 standard drink = 0.6 oz pur e alcohol) Comments No Sex and Gender Information Value Date Recorded Sex Assigned at Not on file Legal Sex Female 6:07 AM GEAR HOBBER Gender Identity Not on file Sexual Orientation [...] Upcoming Encounters Date Type Department Care Team ([facility] Contact Info) Description 01/18/2025 3:00 PM CDT Office Visit [facility] Heart and Vascular - [facility] [address] [place] [address] Marlys Mayer MD [address] [place] [address] documented as of this encounter Visit Diagnoses Not on filedocumented in this encounter Additional Health Concerns Infection Onset Date Last Indicated Resolved Time R/O GI Pathogen 09/19/2023 09/19/2023 09/21/2023 7 :33 AM CDT documented as of this encounter Care Teams Rides Attendant Relationship Specialty Start Date End Date Guerrero Middleton PA-C PCP - General Physician Extraction Machine Operator 02/13/18 documented as of this encounter
--- OUTSIDE RECORDS SUMMARY | 2024-12-11 20:53 | XMS_ITS | Encounter Summary ---
Author Organization [facility] Address [address] [place] [address] Care Team Providers Care Pocket Operator Name Role Phone Guerrero Middleton PA-C Primary Care Provide r Encounter Details Date Type Department Care Team (Late Contact Info) Description 01/04/[address] [facility] Donor Services [facility] [address] [place] [address] Phoenix Riddle MD [address] [facility] [place] [address] Social History Tobacco Use Types Packs/Day Years Used Date Smoking Tobacco: Every Day Cigarettes 1 18 Smokeless Tobacco: Never Comments:nicotine patch requ ested Alcohol Use Standard Drinks/Week Comments No 0 (1 standard drink = 0.6 oz pur e alcohol) Comments No Sex and Gender Information Value Date Recorded Sex Assigned at Not on file Legal Sex Female 6:07 AM SCALE SHOOTER Gender Identity Not on file Sexual Orientation [...] [facility] Rehabilitation Heart and Vascular - [facility] [address] [place] [address] Marlys Mayer MD [address] [place] [address] documented as of this encounter Visit Diagnoses Not on filedocumented in this encounter Additional Health Concerns Infection Onset Date Last Indicated Resolved Time R/O GI Pathogen 09/19/2023 09/19/2023 09/21/2023 7 :33 AM CDT documented as of this encounter Care Teams Pocket Operator Relationship Specialty Start Date End Date Guerrero Middleton PA-C PCP - General Physician Mopper 02/13/18 documented as of this encounter
--- OUTSIDE RECORDS SUMMARY | 2024-12-11 20:53 | XMS_ITS | Encounter Summary ---
Author Organization [facility] Address [address] [place] [address] Care Team Providers Care Oil Refinery Operator Name Role Phone Guerrero Middleton PA-C Primary Care Provide r Reason for Visit * Reason Onset Date Comments OTHER 11/21/2021 Encounter Details Date Type Department Care Team ([facility] Contact Info) Description 11/21/2021 Telephone [facility] Oncology [address] [place] [address] Nicole Rosas MD [address] [place] [address] OTHER Social History Tobacco Use Types Packs/Day Years Used Date Smoking Tobacco: Every Day Cigarettes 1 18 Smokeless Tobacco: Never Comments:nicotine patch requ ested Alcohol Use Standard Drinks/Week Comments No 0 (1 standard drink = 0.6 oz pur e alcohol) Comments No Sex and Gender Information Value Date Recorded Sex Assigned at Not on file Legal Sex Female 6:07 AM CERTIFIED ATHLETIC TRAINER Gender Identity Not on file Sexual Orientation Not on file Occupation Industry Job Start Date Job End Date Not on file Not on file Not on file Not on file documented as of this encounter Plan of Treatment Upcoming Encounters Date Type Department Care Team ([facility] Contact Info) Description 01/18/2025 3:00 PM CDT Office Visit [facility] Heart and Vascular - [facility] [address] [place] [address] Marlys Mayer MD [address] [facility] [address] [place] [address] documented as of this encounter Visit Diagnoses Not on filedocumented in this encounter Additional Health Concerns Infection Onset Date Last Indicated Resolved Time R/O GI Pathogen 09/19/2023 09/19/2023 09/21/2023 7 :33 AM CDT documented as of this encounter Care Teams Oil Refinery Operator Relationship Specialty Start Date End Date Guerrero Middleton PA-C PCP - General Physician Java Designer 02/13/18 documented as of this encounter
--- OUTSIDE RECORDS SUMMARY | 2024-12-11 20:53 | XMS_ITS | Encounter Summary ---
Author Organization [facility] Address [address] [place] [address] Care Team Providers Care Professor Of Graphic Design Name Role Phone Guerrero Middleton PA-C Primary Care Provide r Encounter Details Date Type Department Care Team (Late Contact Info) Description 03/14/2022 Telephone [facility] Donor Services [facility] [address] [place] [address] Phoenix Riddle MD [address] [facility] [place] [address] Social History Tobacco Use Types Packs/Day Years Used Date Smoking Tobacco: Every Day Cigarettes 1 18 Smokeless Tobacco: Never Comments:nicotine patch requ ested Alcohol Use Standard Drinks/Week Comments No 0 (1 standard drink = 0.6 oz pur e alcohol) Comments No Sex and Gender Information Value Date Recorded Sex Assigned at Not on file Legal Sex Female 6:07 AM SUCTION OPERATOR Gender Identity Not on file Sexual Orientation Not on file Occupation Industry Job Start Date Job End Date Not on file Not on file Not on file Not on file documented as of this encounter Plan of Treatment Upcoming Encounters Date Type Department Care Team (Late Contact Info) Description 01/18/2025 3:00 PM CDT Office Visit [facility] Heart and Vascular - [facility] [address] [place] [address] Marlys Mayer MD [address] [facility] [address] [place] [address] documented as of this encounter Visit Diagnoses Not on filedocumented in this encounter Additional Health Concerns Infection Onset Date Last Indicated Resolved Time R/O GI Pathogen 09/19/2023 09/19/2023 09/21/2023 7 :33 AM CDT documented as of this encounter Care Teams Professor Of Graphic Design Relationship Specialty Start Date End Date Guerrero Middleton PA-C PCP - General Physician Fit Model 02/13/18 documented as of this encounter
--- OUTSIDE RECORDS SUMMARY | 2024-12-11 20:53 | XMS_ITS | Encounter Summary ---
Author Organization [facility] Address [address] [place] [address] Care Team Providers Care Four H Agent Name Role Phone Guerrero Middleton PA-C Primary Care Provide r Reason for Visit * Reason Onset Date Comments Bard Port flush 11/16/2021 Attempted to patel ch pt due to needing bard port flushes Encounter Details Date Type Department Care Team (Late Contact Info) Description 11/16/2021 Telephone [facility] Oncology [address] [place] [address] Nicole Rosas MD [address] [place] [address] Bard Port flush (Attempted to [...] on file Legal Sex Female 6:07 AM NIGHT CLUB MANAGER Gender Identity Not on file Sexual [...] [facility] Heart and Vascular - [facility] [address] [address] [address] [place] [address] Marlys Mayer MD [address] [place] [address] documented as of this encounter Visit Diagnoses Not on filedocumented in this encounter Additional Health Concerns Infection Onset Date Last Indicated Resolved Time R/O GI Pathogen 09/19/2023 09/19/2023 09/21/2023 7 :33 AM CDT documented as of this encounter Care Teams Four H Agent Relationship Specialty Start Date End Date Guerrero Middleton PA-C PCP - General Physician Pie Cutter 02/13/18 documented as of this encounter
--- OUTSIDE RECORDS SUMMARY | 2024-12-11 20:54 | XMS_ITS | Clinical Summary ---
Author Organization [facility] Address [address] [place] [address] Care Team Providers Care Landscape Crew Member Name Role Phone Mauri Jaime MD Primary Care Provider [phone] Guerrero Middleton PA Unavailable [phone] Allergies Active Allergy Reactions Criticality Noted Date [...] tablet TAKE 1 TABLET BY MOUTH EVERY HORSEBACK RIDING INSTRUCTOR 022 Active fenofibrate (TRIGLIDE) 160 mg tablet [...] 1 tablet (1,000 mg total) by mouth 022 Active ondansetron ODT (ZOFRAN-ODT) 4 mg disintegrating [...] syndrome Necrotizing pancreatitis Type 2 diabetes mellitus History of transfusion Family History Medical History [...] on file Legal Sex Female 5:05 AM STORE LOSS PREVENTION MANAGER Gender Identity Not on file Sexual Orientation Not on file Obstetrics History Last Filed Vital Signs Vital Sign Reading Time Taken Comments Blood Pressure 101/62 06/05/2023 11:38 AM STORE LOSS PREVENTION MANAGER Pulse 76 06/05/2023 11:38 AM STORE LOSS PREVENTION MANAGER Temperature 36.4 C (97.5 F) 06/05/2023 10:35 AM STORE LOSS PREVENTION MANAGER Respiratory Rate 22 06/05/2023 11:38 AM STORE LOSS PREVENTION MANAGER Oxygen Saturation 94% 06/05/2023 11:38 AM STORE LOSS PREVENTION MANAGER Inhaled Oxygen Concentration - - Weight 81.6 kg (180 lb) 06/05/2023 8:58 AM STORE LOSS PREVENTION MANAGER Height 165.1 cm (5' 5) 06/05/2023 8:58 AM STORE LOSS PREVENTION MANAGER Body Mass Index 29.95 06/05/2023 8:58 AM STORE LOSS PREVENTION MANAGER Plan of Treatment Health Maintenance Due Date Last Done Comments Breast Cancer Screening-Mammogram 1975 Colon Cancer Screening-Colonoscopy 1975 Depression Screening 1975 Hepatitis C Screening 1975 DTaP/Tdap/Td Vaccine (1 - Tdap) 11/24/1986 Hepatitis B Screening 11/24/1993 Regular Well Visit/Exam 18-64 11/24/1993 Pneumococcal vaccine <65 (2 of 2 - PPSV23, PCV20, or PCV21) 07/04/2016 05/09/2016 Covid-19 Vaccine (5 - 2023-2 5 season) 2023 03/08/2023, 03/04/2021, 07/20/2020, Additional history exists Influenza Vaccine (#1) 2024 , 04/09/2022, 03/04/2021, Additional history exists Insurance ANGY [employer] [facility] Care Teams Landscape Crew Member Relationship Specialty Start Date End Date Mauri Jaime MD [address] [facility] [address] [place] [address] PCP - General Internal Medicine 05/28/23 Guerrero Middleton PA [address] [facility] [address] [place] [address] 05/28/23
--- OUTSIDE RECORDS SUMMARY | 2024-12-11 20:54 | XMS_ITS | Clinical Summary ---
Author Organization [facility] Address [address] [place] [address] Phone Care Team Providers Care Insurance Sales Supervisor Name Role Phone Guerrero Middleton PA-C [...] 48h post LHC 4 Active Blood-Glucose Sensor ([employer] G7 Sensor) Device 4 Active buPROPion HCL [...] be different from the original. 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; Type 1 diabetes mellitus without complication (CMS/HCC) from Last 3 Months Immunizations Immunization Administration [...] on file Legal Sex Female 6:07 AM RODDING ANODE WORKER Gender Identity Not on file Sexual Orientation [...] and Vascular - [place] [address] [place] [address] Marlys Mayer MD [address] [place] [address] Health Maintenance Due Date Last Done Comments [...] 11/24/2020 DIABETES ANNUAL FOOT EXAM 05/04/2021 05/04/2020 COVID-19 Vaccine (2023-2 5 season) 2023 03/08/2023 DIABETES HBA1C Q 6 MONTHS 03/20/20242023, 08/24/2021, 07/12/2020, Additional history exists [place] Preventative Visit/Annual Wellness Visit 04/29/2024 LDL CHOLESTEROL ANNUAL 09/18/2024 4, 08/25/2021, 02/01/2019, Additional history exists INFLUENZA VACCINE (#1) 2024 0, 02/02/2019, 02/12/2018, Additional history exists Medical Devices Implanted Type Area Deburr Operator Device Identifier Shelf Expiration Date Model / Serial / Lot Cath Hemodlys Glidespath 23cm [id number] Implanted:Qty : 1 on 04/10/2018 by Kayla Sheffield MD Catheter CR BARD- [employer] [id number] 08/27/2019 [id number] / / [id number] Description:14.5fr x 23cm; R IJ Port-10/29/2018 Implanted:Qty : 2 on 10/29/2018 by Laverne Willoughby MD Explanted:Qty : 1 on 02/18/2019 by Michael Powell MD Port Right: Chest Wall CR BARD- ACCESS SYS 07/28/2019 / / [id number] Description:two 9.6fr fower flow apheresis ports placed by Dr. Willoughby Port- 0 Implanted:Qty : 1 on 05/11/2019 by Alfa Forrest MD Port Left: Chest Wall CR BARD- ACCESS SYS 08/26/2020 / / [id number] Stent Synergy Xd 4.0x12mm Evrlms Elut [id number] - [id number] Implanted:Qty : 1 on 11/29/2023 by Miguel eLwis MD at [facility] Stent N/A: Coronary Open [facility] GRISELDA [id number] 03/19/2024 [id number] / / [id number] Procedures Procedure Name Priority Date/Time Associated Diagnosis Comments LDL CHOLESTEROL, DIRECT Stat 09/19/2023 12:59 AM CDT HEMOGLOBIN A1C Routine 09/18/2023 10:18 PM CDT from Last 3 Months or Most Recently Relevant to Health Maintenance Results * LDL CHOLESTEROL, DIRECT (09/19/2023 12:59 AM CDT) LDL CHOLESTEROL, DIRECT 47 <100 mg/dL 09/19/2023 5:52 AM CDT [facility] Blood Venipuncture / Unknown 09/19/2023 12:59 AM CDT 09/19/2023 1:09 AM CDT Narrative [facility] - 09/19/2023 5:52 AM CDT LDL [...] ORDERABLES Fin al Result Performing Organization Address City/[facility]/ZIP Co de Phone Number [facility] [employer] [facility]# [id number] [address] [place] [address] * (ABNORMAL) HEMOGLOBIN A1C (09/18/2023 10:18 PM CDT) HEMOGLOBIN A1C 9.7(H) <5.7 % 09/19/2023 10:59 AM CDT [facility] EST. AVG GLUCOSE, A1C 232 mg/dL 09/19/2023 10:59 AM CDT [facility] Blood Venipuncture / Unknown 09/18/2023 10:18 PM CDT 09/18/2023 10:26 PM CDT Narrative [facility] - 09/19/2023 10:59 AM CDT HGB A1C INTERPRETATION NORMAL: <5.7% PRE-DIABETES: 5.7 - 6.4% DIABETES: 6.5% OR GREATER Herlinda Mederos DO CHEMISTRY ORDERABLES Final Resul t Performing Organization Address [facility] Co de Phone Number [facility] [employer] [facility]# [id number] [address] [place] [address] from Last 3 Months or Most Recently Relevant to Health Maintenance Insurance RX [employer] Medicare Part D RX MED[employer]ANO PLANS (INTERNAL) [facility] RX MED[employer]O PLANS (INTERNAL) [facility] [id number] Advance Directives For more information, please contact: [phone] * Full Code (Latest Code Status on [...] 12:11 AM 01/02/2021 4:26 PM Care Teams Insurance Sales Supervisor Relationship Specialty Start Date End Date Guerrero Middleton PA-C PCP - General Physician Neuropathologist 02/13/18
--- OUTSIDE RECORDS SUMMARY | 2024-12-11 20:54 | XMS_ITS | Clinical Summary ---
Author Organization [facility] Address [address] [address] Phone Care Team Providers Care Cooky Packer Name Role Phone Jose G Palmer MD Unavailable [phone] Guerrero Middleton Primary Care Provider Social History [...] Cervical Cancer Screening (CCS) 11/24/2005 HPV/Cotest 11/24/2005 Cologuard 11/24/2020 Colonoscopy 11/24/2020 Colorectal Cancer Screening 11/24/2020 Immunochemical Fecal Occult Blood 11/24/2020 SARS-COV-2 Immunization ( season) 2023 03/04/2021, 07/20/2020, 06/28/2020 Influenza Immunization (#1) 2024 03/04/2021 Respiratory Syncytial Virus (RSV) Immunization (Adult) (1 - 1-dose 75+ series) 11/24/2050 Human Papillomavirus (HPV) Immunization Aged Out No longer eligible b ased on patient's age to complete this topic Meningococcal Immunization (ACWY) Aged Out No longer eligible b ased on patient's age to complete this topic Pneumococcal Immunization Combined Aged Out No longer eligible b ased on patient's age to complete this topic Rotavirus Immunization Aged Out No lo nger eligible based on patient's age to complete this topic Insurance Care Teams Cooky Packer Relationship Specialty Start Date End Date Guerrero Middleton PAC [address] [facility] [address] [place] [address] PCP - General Physician Service Trainer 12/10/16 Jose G Palmer MD Consulting Physician Gastroenterology 12/10/16
[2024-12-11 20:57] VITALS: BP 144/70; PULSE 114; RESP 17; TEMP 36.7; O2SAT 97
--- NOTE | 2024-12-11 20:57 | ECG_ITS ---
Test Date: 2024-12-11 20:58:56 Measurements Intervals [place] Rate: 111 P: 54 WY: 148 QRS: 66 QRSD: 78 T: 43 QT: 342 QTc: 465 Interpretive Statements SINUS TACHYCARDIA POSSIBLE LEFT ATRIAL ENLARGEMENT MINIMAL Q WAVES- INFERIOR LEADS BASELINE WANDER- V3 ABNORMAL ECG Compared to ECG 08/19/2024 14:49:13 HEART RATE HAS INCREASED Electronically Signed On 12-12-2024 07:20:07 CDT by Baron Bowers D.O.
--- OUTSIDE RECORDS SUMMARY | 2024-12-11 21:13 | XMS_ITS | Encounter Summary ---
Author Organization [facility] Address [address] [place] [address] Care Team Providers Care Flat Sheet Maker Name Role Phone Guerrero Middleton PA-C Primary Care Provide r Reason for Visit * Reason Onset Date Comments Bard Port flush 11/16/2021 Attempted to patel ch pt due to needing bard port flushes Encounter Details Date Type Department Care Team (Late Contact Info) Description 11/16/2021 Telephone [facility] Oncology [address] [place] [address] Nicole Rosas MD [address] [place] [address] Bard Port flush (Attempted [...] file Legal Sex Female 6:07 AM CRM DYNAMICS DEVELOPER Gender Identity Not on file Sexual Orientation Not on file Occupation Industry Job Start Date Job End Date Not on file Not on file Not on file Not on file documented as of this encounter Plan of Treatment Upcoming Encounters Date Type Department Care Team (Late Contact Info) Description 01/18/2025 3:00 PM CDT Office Visit [facility] Heart and Vascular - [facility] [address] [address] [facility] [address] [place] [id number] Marlys Mayer MD [address] [place] [address] documented as of this encounter Visit Diagnoses Not on filedocumented in this encounter Additional Health Concerns Infection Onset Date Last Indicated Resolved Time R/O GI Pathogen 09/19/2023 09/19/2023 09/21/2023 7 :33 AM CDT documented as of this encounter Care Teams Flat Sheet Maker Relationship Specialty Start Date End Date Guerrero Middleton PA-C PCP - General Physician Benefits Sales Consultant 02/13/18 documented as of this encounter
--- OUTSIDE RECORDS SUMMARY | 2024-12-11 21:13 | XMS_ITS | Encounter Summary ---
Author Organization [facility] Address [address] [place] [address] Care Team Providers Care Dehydrator Operator Name Role Phone Guerrero Middleton PA-C Primary Care Provide r Encounter Details Date Type Department Care Team (Late Contact Info) Description 11/30/2021 Telephone [facility] Donor Services [facility] [address] [place] [address] Nicole Rosas MD [address] [place] [address] Social History Tobacco Use Types Packs/Day Years Used Date Smoking Tobacco: Every Day Cigarettes 1 18 Smokeless Tobacco: Never Comments:nicotine patch requ ested Alcohol Use Standard Drinks/Week Comments No 0 (1 standard drink = 0.6 oz pur e alcohol) Comments No Sex and Gender Information Value Date Recorded Sex Assigned at Not on file Legal Sex Female 6:07 AM TRAFFIC SIGN SUPERVISOR Gender Identity Not on file Sexual Orientation Not on file Occupation Industry Job Start Date Job End Date Not on file Not on file Not on file Not on file documented as of this encounter Plan of Treatment Upcoming Encounters Date Type Department Care Team (Late Contact Info) Description 01/18/2025 3:00 PM CDT Office Visit [facility] Heart and Vascular - [facility] [address] [place] [address] Marlys Mayer MD [address] [facility] [address] [place] [address] documented as of this encounter Visit Diagnoses Not on filedocumented in this encounter Additional Health Concerns Infection Onset Date Last Indicated Resolved Time R/O GI Pathogen 09/19/2023 09/19/2023 09/21/2023 7 :33 AM CDT documented as of this encounter Care Teams Dehydrator Operator Relationship Specialty Start Date End Date Guerrero Middleton PA-C PCP - General Physician Air Turning Machine Feeder 02/13/18 documented as of this encounter
--- OUTSIDE RECORDS SUMMARY | 2024-12-11 21:13 | XMS_ITS | Encounter Summary ---
Author Organization [facility] Address [address] [place] [address] Care Team Providers Care Powder Core Tester Name Role Phone Guerrero Middleton PA-C Primary Care Provide r Reason for Visit * Reason Onset Date Comments port flush 09/13/2021 Encounter Details Date Type Department Care Team ([facility] Contact Info) Description 09/13/2021 Telephone [facility] Donor Services [facility] [address] [place] [address] Gloria Tristan, RN [facility] Social History Tobacco Use Types Packs/Day Years Used Date Smoking Tobacco: Every Day Cigarettes 1 18 Smokeless Tobacco: Never Comments:nicotine patch requ ested Alcohol Use Standard Drinks/Week Comments No 0 (1 standard drink = 0.6 oz pur e alcohol) Comments No Sex and Gender Information Value Date Recorded Sex Assigned at Not on file Legal Sex Female 6:07 AM WILD LIFE MANAGER Gender Identity Not on file Sexual [...] Department Care Team ([facility] Contact Info) Description 01/18/2025 3:00 PM CDT Office Visit [facility] Heart and Vascular - [facility] [address] [address] [facility] [address] [place] [address] Marlys Mayer MD [address] [place] [address] documented as of this encounter Visit Diagnoses Not on filedocumented in this encounter Additional Health Concerns Infection Onset Date Last Indicated Resolved Time R/O GI Pathogen 09/19/2023 09/19/2023 09/21/2023 7 :33 AM CDT documented as of this encounter Care Teams Powder Core Tester Relationship Specialty Start Date End Date Guerrero Middleton PA-C PCP - General Physician Resident Care Manager Rn 02/13/18 documented as of this encounter
--- OUTSIDE RECORDS SUMMARY | 2024-12-11 21:13 | XMS_ITS | Encounter Summary ---
Author Organization [facility] Address [address] [place] [address] Care Team Providers Care Puff Iron Operator Name Role Phone Guerrero Middleton PA-C Primary Care Provide r Encounter Details Date Type Department Care Team (Late Contact Info) Description 10/26/2021 Telephone [facility] Donor Services [facility] [address] [place] [address] Nicole Rosas MD [address] [place] [address] Social History Tobacco Use Types Packs/Day Years Used Date Smoking Tobacco: Every Day Cigarettes 1 18 Smokeless Tobacco: Never Comments:nicotine patch requ ested Alcohol Use Standard Drinks/Week Comments No 0 (1 standard drink = 0.6 oz pur e alcohol) Comments No Sex and Gender Information Value Date Recorded Sex Assigned at Not on file Legal Sex Female 6:07 AM NETWORK TECHNICAL ANALYST Gender Identity Not on file Sexual Orientation [...] [facility] - [facility] [address] [place] [address] Marlys Mayer MD [address] [facility] [address] [place], [place] [address] documented as of this encounter Visit Diagnoses Not on filedocumented in this encounter Additional Health Concerns Infection Onset Date Last Indicated Resolved Time R/O GI Pathogen 09/19/2023 09/19/2023 09/21/2023 7 :33 AM CDT documented as of this encounter Care Teams Puff Iron Operator Relationship Specialty Start Date End Date Guerrero Middleton PA-C PCP - General Physician Motorcycle Builder 02/13/18 documented as of this encounter
--- OUTSIDE RECORDS SUMMARY | 2024-12-11 21:13 | XMS_ITS | Encounter Summary ---
Author Organization [facility] Address [address] [place] [address] Care Team Providers Care Press Reader Name Role Phone Guerrero Middleton PA-C Primary Care Provide r Encounter Details Date Type Department Care Team ([facility] Contact Info) Description 10/13/2021 Telephone [facility] Oncology [address] [place] [address] Phoenix Riddle MD [address] [facility] [place] [address] Social History Tobacco Use Types Packs/Day Years Used Date Smoking Tobacco: Every Day Cigarettes 1 18 Smokeless Tobacco: Never Comments:nicotine patch requ ested Alcohol Use Standard Drinks/Week Comments No 0 (1 standard drink = 0.6 oz pur e alcohol) Comments No Sex and Gender Information Value Date Recorded Sex Assigned at Not on file Legal Sex Female 6:07 AM PORT DRIER Gender Identity Not on file Sexual [...] Upcoming Encounters Date Type Department Care Team ([facility] Contact Info) Description 01/18/2025 3:00 PM CDT Office Visit [facility] Heart and Vascular - [facility] [address] [place] [address] Marlys Mayer MD [address] [place] [address] documented as of this encounter Visit Diagnoses Not on filedocumented in this encounter Additional Health Concerns Infection Onset Date Last Indicated Resolved Time R/O GI Pathogen 09/19/2023 09/19/2023 09/21/2023 7 :33 AM CDT documented as of this encounter Care Teams Press Reader Relationship Specialty Start Date End Date Guerrero Middleton PA-C PCP - General Physician Commodity Trader 02/13/18 documented as of this encounter
--- OUTSIDE RECORDS SUMMARY | 2024-12-11 21:13 | XMS_ITS | Encounter Summary ---
Author Organization [facility] Address [address] [place] [address] Care Team Providers Care Sales Correspondent Name Role Phone Guerrero Middleton PA-C Primary Care Provide r Reason for Visit * Reason Onset Date Comments OTHER 11/21/2021 Encounter Details Date Type Department Care Team ([facility] Contact Info) Description 11/21/2021 Telephone [facility] Oncology [address] [place] [address] Nicole Rosas MD [address] [place] [address] OTHER Social History Tobacco Use Types Packs/Day Years Used Date Smoking Tobacco: Every Day Cigarettes 1 18 Smokeless Tobacco: Never Comments:nicotine patch requ ested Alcohol Use Standard Drinks/Week Comments No 0 (1 standard drink = 0.6 oz pur e alcohol) Comments No Sex and Gender Information Value Date Recorded Sex Assigned at Not on file Legal Sex Female 6:07 AM CONTRACT DRIVER Gender Identity Not on file Sexual Orientation Not on file Occupation Industry Job Start Date Job End Date Not on file Not on file Not on file Not on file documented as of this encounter Plan of Treatment Upcoming Encounters Date Type Department Care Team ([facility] Contact Info) Description 01/18/2025 3:00 PM CDT Office Visit [facility] Heart and Vascular - [facility] [address] [place] [address] Marlys Mayer MD [address] [facility] [address] [place] [address] documented as of this encounter Visit Diagnoses Not on filedocumented in this encounter Additional Health Concerns Infection Onset Date Last Indicated Resolved Time R/O GI Pathogen 09/19/2023 09/19/2023 09/21/2023 7 :33 AM CDT documented as of this encounter Care Teams Sales Correspondent Relationship Specialty Start Date End Date Guerrero Middleton PA-C PCP - General Physician Embroidery Designer 02/13/18 documented as of this encounter
--- OUTSIDE RECORDS SUMMARY | 2024-12-11 21:13 | XMS_ITS | Encounter Summary ---
Author Organization [facility] Address [address] [place] [address] Care Team Providers Care Boatbuilder Apprentice Wood Name Role Phone Guerrero Middleton PA-C Primary Care Provide r Encounter Details Date Type Department Care Team (Late Contact Info) Description 01/04/2022 Telephone [facility] Donor Services [facility] [address] [place] [address] Phoenix Riddle MD [address] [facility] [place] [address] Social History Tobacco Use Types Packs/Day Years Used Date Smoking Tobacco: Every Day Cigarettes 1 18 Smokeless Tobacco: Never Comments:nicotine patch requ ested Alcohol Use Standard Drinks/Week Comments No 0 (1 standard drink = 0.6 oz pur e alcohol) Comments No Sex and Gender Information Value Date Recorded Sex Assigned at Not on file Legal Sex Female 6:07 AM ARSON AND BOMB INVESTIGATOR Gender Identity Not on file Sexual Orientation [...] 01/18/2025 3:00 PM CDT Office Visit [facility] Heart and Vascular - [facility] [address] [place] [address] Marlys Mayer MD [address] [place] [address] documented as of this encounter Visit Diagnoses Not on filedocumented in this encounter Additional Health Concerns Infection Onset Date Last Indicated Resolved Time R/O GI Pathogen 09/19/2023 09/19/2023 09/21/2023 7 :33 AM CDT documented as of this encounter Care Teams Boatbuilder Apprentice Wood Relationship Specialty Start Date End Date Guerrero Middleton PA-C PCP - General Physician Artisan Plasterer 02/13/18 documented as of this encounter
--- OUTSIDE RECORDS SUMMARY | 2024-12-11 21:13 | XMS_ITS | Encounter Summary ---
Author Organization [facility] Address [address] [place] [address] Care Team Providers Care Health Outcomes Liaison Name Role Phone Guerrero Middleton PA-C Primary Care Provide r Encounter Details Date Type Department Care Team (Late Contact Info) Description 12/08/2021 Telephone [facility] Donor Services [facility] [address] [place] [address] Phoenix Riddle MD [address] [facility] [place] [address] Social History Tobacco Use Types Packs/Day Years Used Date Smoking Tobacco: Every Day Cigarettes 1 18 Smokeless Tobacco: Never Comments:nicotine patch requ ested Alcohol Use Standard Drinks/Week Comments No 0 (1 standard drink = 0.6 oz pur e alcohol) Comments No Sex and Gender Information Value Date Recorded Sex Assigned at Not on file Legal Sex Female 6:07 AM TURPENTINE FARMER Gender Identity Not on file Sexual Orientation [...] [facility] Heart [facility]ascular - [facility] [address] [place] [address] Marlys Mayer MD [address] [facility] [address] [place] [address] documented as of this encounter Visit Diagnoses Not on filedocumented in this encounter Additional Health Concerns Infection Onset Date Last Indicated Resolved Time R/O GI Pathogen 09/19/2023 09/19/2023 09/21/2023 7 :33 AM CDT documented as of this encounter Care Teams Health Outcomes Liaison Relationship Specialty Start Date End Date Guerrero Middleton PA-C PCP - General Physician Oven Stripper 02/13/18 documented as of this encounter
--- OUTSIDE RECORDS SUMMARY | 2024-12-11 21:13 | XMS_ITS | Encounter Summary ---
Author Organization [facility] Address [address] [place] [address] Care Team Providers Care Communications Media Professor Name Role Phone Guerrero Middleton PA-C Primary Care Provide r Encounter Details Date Type Department Care Team (Late Contact Info) Description 03/14/2022 Telephone [facility] Donor Services [facility] [address] [place] [address] Phoenix Riddle MD [address] [facility] [place] [address] Social History Tobacco Use Types Packs/Day Years Used Date Smoking Tobacco: Every Day Cigarettes 1 18 Smokeless Tobacco: Never Comments:nicotine patch requ ested Alcohol Use Standard Drinks/Week Comments No 0 (1 standard drink = 0.6 oz pur e alcohol) Comments No Sex and Gender Information Value Date Recorded Sex Assigned at Not on file Legal Sex Female 6:07 AM NUTTER UP Gender Identity Not on file Sexual Orientation Not on file Occupation Industry Job Start Date Job End Date Not on file Not on file Not on file Not on file documented as of this encounter Plan of Treatment Upcoming Encounters Date Type Department Care Team (Late Contact Info) Description 01/18/2025 3:00 PM CDT Office Visit [facility] Heart and Vascular - [facility] [address] [place] [address] Marlys Mayer MD [address] [facility] [address] [place] [address] documented as of this encounter Visit Diagnoses Not on filedocumented in this encounter Additional Health Concerns Infection Onset Date Last Indicated Resolved Time R/O GI Pathogen 09/19/2023 09/19/2023 09/21/2023 7 :33 AM CDT documented as of this encounter Care Teams Communications Media Professor Relationship Specialty Start Date End Date Guerrero Middleton PA-C PCP - General Physician Branch Credit Counselor 02/13/18 documented as of this encounter
--- OUTSIDE RECORDS SUMMARY | 2024-12-11 21:14 | XMS_ITS | Clinical Summary ---
Author Organization [facility] Address [address] [place] [address] Care Team Providers Care Inspector Plating Name Role Phone Mauri Jaime MD Primary Care Provider [phone] Guerrero Middleton PA Unavailable [phone] Allergies Active Allergy Reactions Criticality Noted Date [...] tablet TAKE 1 TABLET BY MOUTH EVERY AUTO CLUB TRAVEL COUNSELOR 022 Active fenofibrate (TRIGLIDE) 160 mg tablet [...] on file Legal Sex Female 5:05 AM CITY COLLECTOR Gender Identity Not on file Sexual Orientation Not on file Obstetrics History Last Filed Vital Signs Vital Sign Reading Time Taken Comments Blood Pressure 101/62 06/05/2023 11:38 AM CITY COLLECTOR Pulse 76 06/05/2023 11:38 AM CITY COLLECTOR Temperature 36.4 C (97.5 F) 06/05/2023 10:35 AM CITY COLLECTOR Respiratory Rate 22 06/05/2023 11:38 AM CITY COLLECTOR Oxygen Saturation 94% 06/05/2023 11:38 AM CITY COLLECTOR Inhaled Oxygen Concentration - - Weight 81.6 kg (180 lb) 06/05/2023 8:58 AM CITY COLLECTOR Height 165.1 cm (5' 5) 06/05/2023 8:58 AM CITY COLLECTOR Body Mass Index 29.95 06/05/2023 8:58 AM CITY COLLECTOR Plan of Treatment Health Maintenance Due Date [...] 03/04/2021, Additional history exists Insurance [facility] Care Teams Inspector Plating Relationship Specialty Start Date End Date Mauri Jaime MD [address] [facility] [address] [place] [address] PCP - General Internal Medicine 05/28/23 Guerrero Middleton PA [address] [facility] [address] [place] [address] 05/28/23
--- OUTSIDE RECORDS SUMMARY | 2024-12-11 21:14 | XMS_ITS | Clinical Summary ---
Author Organization [facility] Address [address] [address] Phone Care Team Providers Care Agricultural Extension Agent Name Role Phone Jose G Palmer MD Unavailable [phone] Guerrero Middleton Primary Care Provider Social History [...] to complete this topic Insurance Care Teams Agricultural Extension Agent Relationship Specialty Start Date End Date Guerrero Middleton PAC [address] [facility] [address] [place] [address] PCP - General Physician Gas Distribution Supervisor 12/10/16 Jose G Palmer MD Consulting Physician Gastroenterology 12/10/16
--- OUTSIDE RECORDS SUMMARY | 2024-12-11 21:14 | XMS_ITS | Clinical Summary ---
Author Organization [facility] Address [address] [place] [address] Phone Care Team Providers Care Digital Learning Platforms Manager Name Role Phone Guerrero Middleton PA-C [...] 48h post LHC 4 Active Blood-Glucose Sensor (Beleza na [employer] G7 Sensor) Device 4 Active buPROPion HCL [...] be different from the original. 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; Type 1 diabetes [...] file Legal Sex Female 6:07 AM SENIOR CONSTRUCTION ESTIMATOR Gender Identity Not on file Sexual Orientation [...] [facility] - [facility] [id number] [place] [id number] Marlys Mayer MD [address] [place] [address] Health Maintenance Due Date Last Done Comments [...] 08/24/2021, 07/12/2020, Additional history exists [place] Preventative Visit/Annual Wellness Visit 04/29/2024 LDL CHOLESTEROL ANNUAL 09/18/2024 4, 08/25/2021, 02/01/2019, Additional history exists INFLUENZA VACCINE (#1) 2024 0, 02/02/2019, 02/12/2018, Additional history exists Medical Devices Implanted Type Area Electro Optical Engineer Device Identifier Shelf Expiration Date Model / Serial / Lot Cath Hemodlys Glidespath 23cm [id number] Implanted:Qty : 1 on 04/10/2018 by Kayla Sheffield MD Catheter CR BARD- [employer] [id number] 08/27/2019 [id number] / / [id number] Description:14.5fr x 23cm; R IJ Port-10/29/2018 Implanted:Qty : 2 on 10/29/2018 by Laverne Willoughby MD Explanted:Qty : 1 on 02/18/2019 by Michael Powell MD Port Right: Chest Wall CR BARD- ACCESS SYS 07/28/2019 / / [id number] Description:two 9.6fr fower flow apheresis ports placed by Dr. Willoughby Port- 0 Implanted:Qty : 1 on 05/11/2019 by Alfa Forrest MD Port Left: Chest Wall CR BARD- ACCESS SYS 08/26/2020 / / [id number] Stent Synergy Xd 4.0x12mm Evrlms Elut [id number] 0 - [id number] Implanted:Qty : 1 on 11/29/2023 by Miguel Lewis MD at [facility] Stent N/A: Coronary Saiguo GRISELDA [id number] 03/19/2024 [id number] / / [id number] Procedures Procedure Name Priority Date/Time Associated Diagnosis Comments LDL CHOLESTEROL, DIRECT Stat 09/19/2023 12:59 AM CDT HEMOGLOBIN A1C Routine 09/18/2023 10:18 PM CDT from Last 3 Months or Most Recently Relevant to Health Maintenance Results * LDL CHOLESTEROL, DIRECT (09/19/2023 12:59 AM CDT) LDL CHOLESTEROL, DIRECT 47 <100 mg/dL 09/19/2023 5:52 AM CDT [facility] Blood Venipuncture / Unknown 09/19/2023 12:59 AM CDT 09/19/2023 1:09 AM CDT Narrative [facility] - 09/19/2023 5:52 AM CDT [...] ORDERABLES Fin al Result Performing Organization Address City/[facility]/ZIP Co de Phone Number [facility] [employer] [facility]# [phone] [address] [place] [address] * (ABNORMAL) HEMOGLOBIN A1C (09/18/2023 10:18 PM CDT) HEMOGLOBIN A1C 9.7(H) <5.7 % 09/19/2023 10:59 AM CDT [facility] EST. AVG GLUCOSE, A1C 232 mg/dL 09/19/2023 10:59 AM CDT [facility] Blood Venipuncture / Unknown 09/18/2023 10:18 PM CDT 09/18/2023 10:26 PM CDT Narrative [facility] - 09/19/2023 10:59 AM CDT HGB A1C INTERPRETATION NORMAL: <5.7% PRE-DIABETES: 5.7 - 6.4% DIABETES: 6.5% OR GREATER Herlinda Mederos DO CHEMISTRY ORDERABLES Final Resul t Performing Organization Address [facility] Co de Phone Number [facility] [employer] [facility]# [id number] [address] [place] [address] from Last 3 Months or Most Recently Relevant to Health Maintenance Insurance RX AETNA Medicare Part D RX MEDRANO PLANS (INTERNAL) [facility] RX MED[employer]O PLANS (INTERNAL) [facility] [employer] [facility] [id number] Advance Directives For more information, please contact: [phone] * Full Code (Latest Code Status on [...] 12:11 AM 01/02/2021 4:26 PM Care Teams Digital Learning Platforms Manager Relationship Specialty Start Date End Date Guerrero Middleton PA-C PCP - General Physician Card Seller 02/13/18
[2024-12-11 21:29] LABS: Hematocrit 40.8 % (37.0-47.0); Hemoglobin 13.7 g/dL (12.0-15.0); Immature Granulocyte Percent A 1.1 % (0-0.5); Lymphocytes Absolute Auto 2.20 K/mm3 (0.9-3.2); Mean Corpuscular HGB Conc 33.6 g/dl (32-36); Mean Corpuscular Hemoglobin 29.6 pg (26-34); Mean Corpuscular Volume 88.1 fl (80-100); Nucleated Red Blood Cells Absolute Auto 0.000 K/mm3 (0.0-0.012); Nucleated Red Blood Cells Perc 0.0 % (0.0-0.2); Platelet Count Result 224 k/mm3 (150-375); Red Blood Count 4.63 M/mm3 (4.2-5.4); White Blood Count 8.4 K/mm3 (4.5-10.0)
[2024-12-11 21:40] LABS: INR 0.9; Prothrombin Time 12.0 Seconds (11.1-14.7)
[2024-12-11 21:41] LABS: Partial Thromboplastin Time 29.7 Seconds (22.3-36.8)
[2024-12-11 21:44] LABS: Alanine Aminotransferase 43 U/L (6-35); Albumin Level 4.3 g/dL (3.5-5.1); Alkaline Phosphatase 106 U/L (38-126); Anion Gap 14 mmol/L (4-12); Aspartate Amino Transferase 41 U/L (14-36); Bilirubin,Total 0.4 mg/dL (0.2-1.3); Blood Urea Nitrogen 14 mg/dL (7-17); Calcium 9.4 mg/dL (8.4-10.2); Carbon Dioxide 22 mmol/L (22-30); Chloride 97 mmol/L (98-107); Estimated CRCL calculation 94 ml/min; Estimated Glomerular Filt Rate > 60; Glucose 516 mg/dL (65-110); Lipase 207 U/L (23-300); Potassium 4.5 mmol/L (3.4-5.0); Sodium 133 mmol/L (137-145); Total Protein 7.3 g/dL (6.3-8.2)
--- NOTE | 2024-12-11 21:45 | ED.ABDPAIN ---
HPI - Abdominal Pain General Chief Complaint: Abdominal Pain <DARI Vines Last Filed: 12/12/24 03:12> Stated Complaint: abd pain <DARI Vines Last Filed: 12/12/24 03:12> Time Seen by Provider: 12/11/24 21:00 <DARI Vines Last Filed: 12/12/24 03:12> Source: patient <DARI Vines Last Filed: 12/12/24 03:12> Mode of arrival: ambulatory <DARI Vines Last Filed: 12/12/24 03:12> Limitations: no limitations <DARI Vines Last Filed: 12/12/24 03:12> History of Present Illness HPI narrative: This is a 49 year old female that presents to the ER for epigastric abdominal pain/chest pain. Reports associated vomiting, diarrhea. Reports ongoing over the last week. Reports worsening pain today which prompted her to be seen. Denies fevers. <DARI Vines Last Filed: 12/12/24 03:12> Related Data Home Medications: Home Medications ?Medication ?Instructions ?Recorded ?Confirmed ?Last Taken ?Type citalopram 40 mg tablet 40 mg PO HS 08/31/23 12/12/24 09/21/24 History bupropion HCl 150 mg tablet,12 hr 150 mg PO HS 10/09/23 12/12/24 09/21/24 History sustained-release metoprolol succinate 25 mg 12.5 mg PO DAILY 03/31/24 12/12/24 09/21/24 History tablet,extended release 24 hr olezarsen 80 mg/0.8 mL 80 mg subcut MONTHLY 09/16/24 12/12/24 11/27/24 History subcutaneous auto-injector (Tryngolza) lorazepam 1 mg tablet 1 mg PO QHS sleep 12/12/24 12/12/24 Unknown History <DARI Vines Last Filed: 12/12/24 03:12> Allergies/Adverse Reactions: Allergies Allergy/AdvReac Type Severity Reaction Status Date / Time adhesive tape Allergy Mild Rash Verified 12/12/24 04:00 wor[place] pepper (green pepper) Allergy Unknown Hives Verified 12/12/24 04:00 sucralose (From Splenda Allergy Migraine Verified 12/12/24 04:00 (sucralose)) Artificial Sweetners AdvReac Migraine Uncoded 12/12/24 04:00 <Alize Lind PA-C - Last Filed: 12/12/24 03:12> Review of Systems Review of Systems: All systems reviewed & are unremarkable except as noted in HPI and below <Alize Lind PA-C - Last Filed: 12/12/24 03:12> [facility] Past Medical History Medical History: Medical History (Updated 12/12/24 @ 04:34 by ISSAC Delaney) Gastroenteritis Gastroparesis Chylomicronemia syndrome CAD (coronary artery disease) Anxiety BMI 31.0-31.9,adult Hx of fci use of blood thinners Abnormal CT scan, esophagus Nausea Occult blood in stools Colon cancer screening Hypertriglyceridemia PCOS (polycystic ovarian syndrome) GERD (gastroesophageal reflux disease) 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 Allergic rhinitis Insulin dependent diabetes mellitus Chronic pancreatitis (~09/02/23) Port-A-Cath in place Lipoprotein deficiency Hyperlipemia Headache <Alize Lind PA-C - Last Filed: 12/12/24 03:12> Surgical History Surgical History: Surgical History History of wisdom tooth extraction History of tubal ligation History of partial hysterectomy History of endometrial ablation History of appendectomy History of loop electrical excision procedure (LEEP) History of exploratory laparotomy History of dilatation and curettage History of conization of cervix History of tonsillectomy <Alize Lind PA-C - Last Filed: 12/12/24 03:12> Family History Family History: Family History Father Alcohol abuse Hypercholesteremia Hypertension Family history of alcoholism Family history of cardiovascular disease Diabetes mellitus Mother Hypercholesteremia Hypothyroid Cerebrovascular accident Family history of cardiovascular disease Diabetes mellitus Grandparent Skin cancer Colon cancer Heart disease Hypothyroid Cerebrovascular accident Sibling Autoimmune disorder Hypothyroid Kidney disorder Hypertension Diabetes mellitus Other Family history of kidney disease <Alize Lind PA-C - Last Filed: 12/12/24 03:12> Social History Social History: Social History Social History: She smokes up to 1ppd since age 16yo. No alcohol or drug use. She has dog and a cat at home. Surrogate medical decision maker: José Miguel Jones, spouse. Code status: Full Smoking packs per day: 0.5 Smoking cigarettes per day: 10.0 Years smoked: 20 Smoking pack-years: 10.00 Smoking status: Current every day smoker Tobacco type: cigarettes Second hand tobacco smoke exposure: No Alcohol intake: never Drinks per week: 0 Substance use: never Substance use type: does not use Do You Feel Safe in your Home?: Yes Lack of Transportation: No Lack of Food: Never True Current Housing: I Have Housing Concerned About Future Housing: No Difficulty Paying Gas/Electric Bills: No Difficulty Paying for Meds: No Currently Unemployed: No Education: Associate Degree Difficulty w/ Childcare or Family Care: No Living arrangements: with family Occupation/Education: retired 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 HEAD: Normocephalic, atraumatic. EYES: EOMI. ENT: Nares clear, no rhinorrhea or epistaxis. Mucous membranes moist. Oropharynx without tonsillar hypertrophy exudate or other lesions. CHEST: Clear to auscultation. No respiratory distress. No wheezes rales or rhonchi HEART: Regular rate and rhythm. No murmur heard. Normal peripheral pulses. ABDOMEN: Soft, nondistended, normal active bowel sounds. Tender to palpation in the epigastrium, without guarding EXTREMITIES: Normal range of motion. No edema. SKIN: Warm, dry, no rash. NEURO: No focal deficits. Alert and oriented x3. PSYCH: Normal mood and affect <Alize Lind PA-C - Last Filed: 12/12/24 03:12> Procedures EJ/Peripheral Line Arm R: EJ/Peripheral Line Date: 12/11/24 <Elmer Bullard MD - Last Filed: 12/12/24 06:58> EJ/Peripheral Line Time: 22:01 <Elmer Bullard MD - Last Filed: 12/12/24 06:58> Time Out Performed: Yes <Elmer Bullard MD - Last Filed: 12/12/24 06:58> Skin Cleansed in Sterile Fashion: Yes <Elmer Bullard MD - Last Filed: 12/12/24 06:58> Ultrasound Guided: Yes <Elmer Bullard MD - Last Filed: 12/12/24 06:58> Size (gauge): 20 <Elmer Bullard MD - Last Filed: 12/12/24 06:58> IV Secured and Dressing Applied: Yes <Elmer Bullard MD - Last Filed: 12/12/24 06:58> Patient Tolerated Procedure: well and no complications <Elmer Bullard MD - Last Filed: 12/12/24 06:58> Course UNDERWEAR WELTER/PA Physician Supervision This visit was performed by both a physician and an APC. I performed all aspects of the MDM as documented. <Elmer Bullard MD - Last Filed: 12/12/24 06:58> Consultations Consultation #1: Spoke with hospitalist about patient and workup who accepts admission <Alize Lind PA-C - Last Filed: 12/12/24 03:12> Date: 12/12/24 <Alize Lind PA-C - Last Filed: 12/12/24 03:12> Vital Signs Vital signs: Vital Signs Temperature 36.7 C 12/11/24 20:57 Pulse Rate 114 H 12/11/24 20:57 Respiratory Rate 17 12/11/24 20:57 Blood Pressure 144/70 H 12/11/24 20:57 Pulse Oximetry 97 12/11/24 20:57 Oxygen Delivery Room Air 12/11/24 20:57 Temperature 36.2 C L 12/12/24 04:00 Pulse Rate 86 12/12/24 04:00 Respiratory Rate 16 12/12/24 04:00 Blood Pressure 103/61 12/12/24 04:00 Pulse Oximetry 93 12/12/24 04:00 Oxygen Delivery Room Air 12/12/24 05:48 <Alize Lind PA-C - Last Filed: 12/12/24 03:12> Vital Signs Temperature 36.7 C 12/11/24 20:57 Pulse Rate 114 H 12/11/24 20:57 Respiratory Rate 17 12/11/24 20:57 Blood Pressure 144/70 H 12/11/24 20:57 Pulse Oximetry 97 12/11/24 20:57 Oxygen Delivery Room Air 12/11/24 20:57 Temperature 36.2 C L 12/12/24 04:00 Pulse Rate 86 12/12/24 04:00 Respiratory Rate 16 12/12/24 04:00 Blood Pressure 103/61 12/12/24 04:00 Pulse Oximetry 93 12/12/24 04:00 Oxygen Delivery Room Air 12/12/24 05:48 <Elmer Bullard MD - Last Filed: 12/12/24 06:58> MDM - Abdominal Pain MDM Narrative Medical decision making narrative: Patient presents the emergency department for epigastric pain/chest pain, vomiting. History of recurrent pancreatitis, familial hypertriglyceridemia. She is afebrile nontoxic appearing. Tachycardic upon arrival, this normalized with IV fluids. Cbc without leukocytosis. Metabolic panel with evidence of dehydration, hyperglycemia. Triglycerides are 709. Urine without evidence of infection. CT abdomen and pelvis shows findings of gastroenteritis. Patient updated on her workup. Endorses continued nausea, feeling unwell. Will be admitted for further management of dehydration <Alize Lind PA-C - Last Filed: 12/12/24 03:12> Differential Diagnosis Differential diagnosis: Likely other (Necrotizing fasciitis, abscess, cellulitis) <Alize Lind PA-C - Last Filed: 12/12/24 03:12> Lab Data Attestation: I reviewed the patient's lab results. <Alize Lind PA-C - Last Filed: 12/12/24 03:12> Result diagrams: 12/11/24 21:19 12/12/24 01:54 <Alize Lind PA-C - Last Filed: 12/12/24 03:12> Labs: Lab Results 12/11/24 12/11/24 12/11/24 Range/Units 21:19 21:20 21:21 WBC 8.4 (4.5-10.0) K/mm3 RBC 4.63 (4.2-5.4) M/mm3 Hgb 13.7 (12.0-15.0) g/dL Hct 40.8 (37.0-47.0) % MCV 88.1 (80-100) fl MCH 29.6 (26-34) pg MCHC 33.6 (32-36) g/dl RDW 14.6 H (11.5-14.5) % Plt Count 224 (150-375) k/mm3 MPV 9.6 (7.4-10.4) fl Immature Gran % (Auto) 1.1 H (0-0.5) % Neut % (Auto) 65.7 (45.5-73.1) % Lymph % (Auto) 26.2 (18.3-44.2) % [place] % (Auto) 5.9 (2.6-8.5) % Eos % (Auto) 0.6 (0-4.4) % Baso % (Auto) 0.5 (0.2-1.2) % Lymph # (Auto) 2.20 (0.9-3.2) K/mm3 [place] # (Auto) 0.5 (0.1-0.6) K/mm3 Eos # (Auto) 0.1 (0-0.3) K/mm3 Baso # (Auto) 0.0 (0.0-0.1) K/mm3 Abs Immat Gran (auto) 0.09 H (0.00-0.031) K/mm3 Absolute Neuts (auto) 5.5 (1.3-6.7) K/mm3 Absolute Nucleated RBC 0.000 (0.0-0.012) K/mm3 Nucleated RBC % 0.0 (0.0-0.2) % PT 12.0 (11.1-14.7) Seconds INR 0.9 APTT 29.7 (22.3-36.8) Seconds D-Dimer < 0.27 (<0.48) ug/mL Sodium 133 L (137-145) mmol/L Potassium 4.5 (3.4-5.0) mmol/L Chloride 97 L (98-107) mmol/L Carbon Dioxide 22 (22-30) mmol/L Anion Gap 14 H (4-12) mmol/L BUN 14 (7-17) mg/dL Creatinine 0.68 L (0.7-1.0) mg/dL Estim Creat Clear Calc 94 ml/min Estimated GFR > 60 (59 - ) Glucose 516 H* (65-110) mg/dL Hemoglobin A1c 12.7 H (<5.7) % Calcium 9.4 (8.4-10.2) mg/dL Phosphorus 4.6 H (2.5-4.5) mg/dL Magnesium 1.5 L (1.6-2.3) mg/dL Total Bilirubin 0.4 (0.2-1.3) mg/dL AST 41 H (14-36) U/L ALT 43 H (6-35) U/L Alkaline Phosphatase 106 (38-126) U/L Troponin I < 0.012 (0.000-0.034) ng/mL Total Protein 7.3 (6.3-8.2) g/dL Albumin 4.3 (3.5-5.1) g/dL Triglycerides 709 H (<150) mg/dL Lipase 207 (23-300) U/L Beta-Hydroxybutyrate/Acetoacetate 0.32 H (0.02-0.27) mmol/L Urine Color (Yellow) Urine Appearance (Clear) Urine pH (5.0-9.0) Ur Specific Enigma (1.001-1.035) Urine Protein (Negative) mg/dL Urine Glucose (UA) (Negative) mg/dL Urine Ketones (Negative) mg/dL Ur Blood (Man) (Negative) Urine Nitrate (Negative) Urine Bilirubin (Negative) Urine Urobilinogen (<2.0) mg/dL Leukocyte Esterase Rfl (Negative) STEPHEN/UL 12/11/24 12/12/24 Range/Units 23:07 01:54 WBC (4.5-10.0) K/mm3 RBC (4.2-5.4) M/mm3 Hgb (12.0-15.0) g/dL Hct (37.0-47.0) % MCV (80-100) fl MCH (26-34) pg MCHC (32-36) g/dl RDW (11.5-14.5) % Plt Count (150-375) k/mm3 MPV (7.4-10.4) fl Immature Gran % (Auto) (0-0.5) % Neut % (Auto) (45.5-73.1) % Lymph % (Auto) (18.3-44.2) % [place] % (Auto) (2.6-8.5) % Eos % (Auto) (0-4.4) % Baso % (Auto) (0.2-1.2) % Lymph # (Auto) (0.9-3.2) K/mm3 [place] # (Auto) (0.1-0.6) K/mm3 Eos # (Auto) (0-0.3) K/mm3 Baso # (Auto) (0.0-0.1) K/mm3 Abs Immat Gran (auto) (0.00-0.031) K/mm3 Absolute Neuts (auto) (1.3-6.7) K/mm3 Absolute Nucleated RBC (0.0-0.012) K/mm3 Nucleated RBC % (0.0-0.2) % PT (11.1-14.7) Seconds INR APTT (22.3-36.8) Seconds D-Dimer (<0.48) ug/mL Sodium 134 L (137-145) mmol/L Potassium 4.6 (3.4-5.0) mmol/L Chloride 102 (98-107) mmol/L Carbon Dioxide 23 (22-30) mmol/L Anion Gap 9 (4-12) mmol/L BUN 14 (7-17) mg/dL Creatinine 0.62 L (0.7-1.0) mg/dL Estim Creat Clear Calc 102 ml/min Estimated GFR > 60 (59 - ) Glucose 359 H (65-110) mg/dL Hemoglobin A1c (<5.7) % Calcium 8.8 (8.4-10.2) mg/dL Phosphorus (2.5-4.5) mg/dL Magnesium (1.6-2.3) mg/dL Total Bilirubin (0.2-1.3) mg/dL AST (14-36) U/L ALT (6-35) U/L Alkaline Phosphatase (38-126) U/L Troponin I (0.000-0.034) ng/mL Total Protein (6.3-8.2) g/dL Albumin (3.5-5.1) g/dL Triglycerides (<150) mg/dL Lipase (23-300) U/L Beta-Hydroxybutyrate/Acetoacetate (0.02-0.27) mmol/L Urine Color Yellow (Yellow) Urine Appearance Clear (Clear) Urine pH 6.0 (5.0-9.0) Ur Specific Enigma > 1.045 H (1.001-1.035) Urine Protein Negative (Negative) mg/dL Urine Glucose (UA) 3+ H (Negative) mg/dL Urine Ketones Trace H (Negative) mg/dL Ur Blood (Man) Negative (Negative) Urine Nitrate Negative (Negative) Urine Bilirubin Negative (Negative) Urine Urobilinogen 0.2 (<2.0) mg/dL Leukocyte Esterase Rfl Negative (Negative) STEPHEN/UL <Alize Lind PA-C - Last Filed: 12/12/24 03:12> Lab Results 12/11/24 12/11/24 12/11/24 Range/Units 21:19 21:20 21:21 WBC 8.4 (4.5-10.0) K/mm3 RBC 4.63 (4.2-5.4) M/mm3 Hgb 13.7 (12.0-15.0) g/dL Hct 40.8 (37.0-47.0) % MCV 88.1 (80-100) fl MCH 29.6 (26-34) pg MCHC 33.6 (32-36) g/dl RDW 14.6 H (11.5-14.5) % Plt Count 224 (150-375) k/mm3 MPV 9.6 (7.4-10.4) fl Immature Gran % (Auto) 1.1 H (0-0.5) % Neut % (Auto) 65.7 (45.5-73.1) % Lymph % (Auto) 26.2 (18.3-44.2) % [place] % (Auto) 5.9 (2.6-8.5) % Eos % (Auto) 0.6 (0-4.4) % Baso % (Auto) 0.5 (0.2-1.2) % Lymph # (Auto) 2.20 (0.9-3.2) K/mm3 [place] # (Auto) 0.5 (0.1-0.6) K/mm3 Eos # (Auto) 0.1 (0-0.3) K/mm3 Baso # (Auto) 0.0 (0.0-0.1) K/mm3 Abs Immat Gran (auto) 0.09 H (0.00-0.031) K/mm3 Absolute Neuts (auto) 5.5 (1.3-6.7) K/mm3 Absolute Nucleated RBC 0.000 (0.0-0.012) K/mm3 Nucleated RBC % 0.0 (0.0-0.2) % PT 12.0 (11.1-14.7) Seconds INR 0.9 APTT 29.7 (22.3-36.8) Seconds D-Dimer < 0.27 (<0.48) ug/mL Sodium 133 L (137-145) mmol/L Potassium 4.5 (3.4-5.0) mmol/L Chloride 97 L (98-107) mmol/L Carbon Dioxide 22 (22-30) mmol/L Anion Gap 14 H (4-12) mmol/L BUN 14 (7-17) mg/dL Creatinine 0.68 L (0.7-1.0) mg/dL Estim Creat Clear Calc 94 ml/min Estimated GFR > 60 (59 - ) Glucose 516 H* (65-110) mg/dL Hemoglobin A1c 12.7 H (<5.7) % Calcium 9.4 (8.4-10.2) mg/dL Phosphorus 4.6 H (2.5-4.5) mg/dL Magnesium 1.5 L (1.6-2.3) mg/dL Total Bilirubin 0.4 (0.2-1.3) mg/dL AST 41 H (14-36) U/L ALT 43 H (6-35) U/L Alkaline Phosphatase 106 (38-126) U/L Troponin I < 0.012 (0.000-0.034) ng/mL Total Protein 7.3 (6.3-8.2) g/dL Albumin 4.3 (3.5-5.1) g/dL Triglycerides 709 H (<150) mg/dL Lipase 207 (23-300) U/L Beta-Hydroxybutyrate/Acetoacetate 0.32 H (0.02-0.27) mmol/L Urine Color (Yellow) Urine Appearance (Clear) Urine pH (5.0-9.0) Ur Specific Enigma (1.001-1.035) Urine Protein (Negative) mg/dL Urine Glucose (UA) (Negative) mg/dL Urine Ketones (Negative) mg/dL Ur Blood (Man) (Negative) Urine Nitrate (Negative) Urine Bilirubin (Negative) Urine Urobilinogen (<2.0) mg/dL Leukocyte Esterase Rfl (Negative) STEPHEN/UL 12/11/24 12/12/24 Range/Units 23:07 01:54 WBC (4.5-10.0) K/mm3 RBC (4.2-5.4) M/mm3 Hgb (12.0-15.0) g/dL Hct (37.0-47.0) % MCV (80-100) fl MCH (26-34) pg MCHC (32-36) g/dl RDW (11.5-14.5) % Plt Count (150-375) k/mm3 MPV (7.4-10.4) fl Immature Gran % (Auto) (0-0.5) % Neut % (Auto) (45.5-73.1) % Lymph % (Auto) (18.3-44.2) % [place] % (Auto) (2.6-8.5) % Eos % (Auto) (0-4.4) % Baso % (Auto) (0.2-1.2) % Lymph # (Auto) (0.9-3.2) K/mm3 [place] # (Auto) (0.1-0.6) K/mm3 Eos # (Auto) (0-0.3) K/mm3 Baso # (Auto) (0.0-0.1) K/mm3 Abs Immat Gran (auto) (0.00-0.031) K/mm3 Absolute Neuts (auto) (1.3-6.7) K/mm3 Absolute Nucleated RBC (0.0-0.012) K/mm3 Nucleated RBC % (0.0-0.2) % PT (11.1-14.7) Seconds INR APTT (22.3-36.8) Seconds D-Dimer (<0.48) ug/mL Sodium 134 L (137-145) mmol/L Potassium 4.6 (3.4-5.0) mmol/L Chloride 102 (98-107) mmol/L Carbon Dioxide 23 (22-30) mmol/L Anion Gap 9 (4-12) mmol/L BUN 14 (7-17) mg/dL Creatinine 0.62 L (0.7-1.0) mg/dL Estim Creat Clear Calc 102 ml/min Estimated GFR > 60 (59 - ) Glucose 359 H (65-110) mg/dL Hemoglobin A1c (<5.7) % Calcium 8.8 (8.4-10.2) mg/dL Phosphorus (2.5-4.5) mg/dL Magnesium (1.6-2.3) mg/dL Total Bilirubin (0.2-1.3) mg/dL AST (14-36) U/L ALT (6-35) U/L Alkaline Phosphatase (38-126) U/L Troponin I (0.000-0.034) ng/mL Total Protein (6.3-8.2) g/dL Albumin (3.5-5.1) g/dL Triglycerides (<150) mg/dL Lipase (23-300) U/L Beta-Hydroxybutyrate/Acetoacetate (0.02-0.27) mmol/L Urine Color Yellow (Yellow) Urine Appearance Clear (Clear) Urine pH 6.0 (5.0-9.0) Ur Specific Enigma > 1.045 H (1.001-1.035) Urine Protein Negative (Negative) mg/dL Urine Glucose (UA) 3+ H (Negative) mg/dL Urine Ketones Trace H (Negative) mg/dL Ur Blood (Man) Negative (Negative) Urine Nitrate Negative (Negative) Urine Bilirubin Negative (Negative) Urine Urobilinogen 0.2 (<2.0) mg/dL Leukocyte Esterase Rfl Negative (Negative) STEPHEN/UL <Elmer Bullard MD - Last Filed: 12/12/24 06:58> Imaging Data Radiologist's impression: ITS Impressions Abdomen/Pelvis CT 12/11/24 23:00 IMPRESSION: Mural thickening within the distal esophagus and proximal stomach for which a gastroenteritis is suspected. Fatty infiltration of an enlarged liver. <Alize Lind PA-C - Last Filed: 12/12/24 03:12> ITS Impressions Abdomen/Pelvis CT 12/11/24 23:00 IMPRESSION: Mural thickening within the distal esophagus and proximal stomach for which a gastroenteritis is suspected. Fatty infiltration of an enlarged liver. <Elmer Bullard MD - Last Filed: 12/12/24 06:58> Critical Care Time Critical Care Time Critical Care Time: No <Alize Lind PA-C - Last Filed: 12/12/24 03:12> Discharge Plan Discharge Clinical Impression: Acute dehydration, Hypertriglyceridemia <Alize Lind PA-C - Last Filed: 12/12/24 03:12> Patient Disposition: Still a Patient <Alize Lind PA-C - Last Filed: 12/12/24 03:12> Condition: Stable <DARI Vines Last Filed: 12/12/24 03:12>
[2024-12-11] MEDS: FAMOTIDINE 20 MG/2 ML VIAL IV PUSH (21:47)
[2024-12-11] MEDS: ONDANSETRON INJ 4 MG/2 ML VIAL IV PUSH (21:47)
[2024-12-11] MEDS: MORPHINE SULFATE (*CRX) 4 MG/ML INJ IV PUSH (21:47)
[2024-12-11] MEDS: SODIUM CHLORIDE 0.9% IV 1,000 ML 999 ML IV CONT (21:48)
[2024-12-11 21:52] LABS: Troponin I < 0.012 ng/mL (0.000-0.034)
[2024-12-11 22:08] LABS: Magnesium 1.5 mg/dL (1.6-2.3)
[2024-12-11 22:30] LABS: Hemoglobin A1C 12.7 % (<5.7)
[2024-12-11 22:31] LABS: Beta-Hydroxybutyrate/Acetoacetate 0.32 mmol/L (0.02-0.27)
[2024-12-11] MEDS: HYDROmorphone HCL INJ (*CRX) 1 MG/ML SYR 0.5 MG IV PUSH (22:39)
[2024-12-11] MEDS: MAGNESIUM SULF 2 GM/WATER 50ML 2 GM/50 ML BAG IVPB (23:02)
[2024-12-11 23:13] LABS: Add Urine Microscopic? NO; Appearance Urine Clear (Clear); Glucose Urine UA 3+ mg/dL (Negative); Leukocyte Esterase Ur Negative LEU/UL (Negative); Nitrate Urine Negative (Negative); Specific Grav Ur > 1.045 (1.001-1.035)
[2024-12-11] MEDS: HYDROmorphone HCL INJ (*CRX) 1 MG/ML SYR IV PUSH (23:30)
[2024-12-11] MEDS: LACTATED RINGERS 1,000 ML 999 ML IV CONT (23:59)
[2024-12-12] VITALS (7 sets, daily range): BP systolic 103–141; BP diastolic 61–85; PULSE 81–94; RESP 16–18; TEMP 36.2–36.7; O2SAT 93–97; BMI 29.6
[2024-12-12 00:31] LABS: Triglycerides 709 mg/dL (<150)
[2024-12-12 02:12] LABS: Anion Gap 9 mmol/L (4-12); Blood Urea Nitrogen 14 mg/dL (7-17); Calcium 8.8 mg/dL (8.4-10.2); Carbon Dioxide 23 mmol/L (22-30); Chloride 102 mmol/L (98-107); Estimated CRCL calculation 102 ml/min; Estimated Glomerular Filt Rate > 60; Glucose 359 mg/dL (65-110); Potassium 4.6 mmol/L (3.4-5.0); Sodium 134 mmol/L (137-145)
[2024-12-12] MEDS: PANTOPRAZOLE SODIUM IV 40 MG VIAL IV PUSH ×2 (02:20→08:40)
[2024-12-12] MEDS: KETOROLAC 15 MG/ML VIAL (*BKC) IV PUSH (02:20)
[2024-12-12] MEDS: SODIUM CHLORIDE 0.9% IV 1,000 ML 125 ML IV CONT ×3 (03:21→21:37)
--- NOTE | 2024-12-12 03:24 | P.HP_ITS ---
H&P: HPI History of Present Illness Date/Time: 12/12/24 03:24 Chief Complaint: Abdominal pain Narrative: This is pleasant 49 old female patient with past medical history of Familial Chylomicronemia Syndrome, gastroparesis, anxiety, chronic hypertriglyceridemia secondary to her of CS, GERD, hypothyroidism, Jade's, diabetes mellitus, chronic pancreatitis and hyperlipidemia who presented to the emergency room this evening with complaints of abdominal pain with nausea/vomiting/diarrhea that has worsened over the course of the past week. Patient denies any fevers, medication changes, recent travel or any known illness exposure. Her pain is primarily across the left upper quadrant, epigastric region and into the right upper quadrant. She has not been able to identify any alleviating or exacerbating factors. Patient states she wears her CGM and that her glucose has been running steadily in the 300s. Patient states she is followed by Dr. Kaminski for pheresis treatment of her Triglycerides secondary to her FCS. In the emergency room workup was performed that shows mild tachycardia in the 1 teens. EKG showing sinus tachycardia 111 beats per minute. Her metabolic panel was significant initially for glucose of 516 otherwise unremarkable. CBC is unremarkable. Patient's coags and D-dimer are normal. Urinalysis negative. A1c was measured to be 12.7. Troponin was normal. Her triglycerides are elevated at 709 her range of hypertriglyceridemia ranges from the 300s all the way up to greater than 2000. Lipase is 207 and upon initial check of labs patient had an elevated beta hydroxybutyrate at 0.32 an initial elevated anion gap of 14. After IV hydration with a bolus of normal saline patient's gap closed to 9 in her glucose came down to 359. I suspect the patient's degree of dehydration had her on borderline DKA. Her magnesium of 1.5 was treated with 2 g of magnesium in the emergency room. Patient was treated for her pain and her nausea and is currently being admitted observation for continued hydration, further workup with labs and potential consult with Nephrology for her Hypertriglyceridemia. 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 Allergic rhinitis Insulin dependent diabetes mellitus Chronic pancreatitis (~09/02/23) Port-A-Cath in place Lipoprotein deficiency Hyperlipemia Headache Surgical History Surgical History History of wisdom tooth extraction History of tubal ligation History of partial hysterectomy History of endometrial ablation History of appendectomy History of loop electrical excision procedure (LEEP) History of exploratory laparotomy History of dilatation and curettage History of conization of cervix History of tonsillectomy Family History Family History Father Alcohol abuse Hypercholesteremia Hypertension Family history of alcoholism Family history of cardiovascular disease Diabetes mellitus Mother Hypercholesteremia Hypothyroid Cerebrovascular accident Family history of cardiovascular disease Diabetes mellitus Grandparent Skin cancer Colon cancer Heart disease Hypothyroid Cerebrovascular accident Sibling Autoimmune disorder Hypothyroid Kidney disorder Hypertension Diabetes mellitus Other Family history of kidney disease Social History Social History Social History: She smokes up to 1ppd since age 16yo. No alcohol or drug use. She has dog and a cat at home. Surrogate medical decision maker: José Miguel Jones, spouse. Code status: Full Smoking packs per day: 0.5 Smoking cigarettes per day: 10.0 Years smoked: 20 Smoking pack-years: 10.00 Smoking status: Current every day smoker Tobacco type: cigarettes Second hand tobacco smoke exposure: No Alcohol intake: never Drinks per week: 0 Substance use: never Substance use type: does not use Do You Feel Safe in your Home?: Yes Lack of Transportation: No Lack of Food: Never True Current Housing: I Have Housing Concerned About Future Housing: No Difficulty Paying Gas/Electric Bills: No Difficulty Paying for Meds: No Currently Unemployed: No Education: Associate Degree Difficulty w/ Childcare or Family Care: No Living arrangements: with family Occupation/Education: retired 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 Gender identity (if verbalized by the patient): Female Spiritual care concerns: No Meds Home Medications and Allergies Home Medications ?Medication ?Instructions ?Recorded ?Confirmed ?Type metformin 500 mg tablet 1,000 mg (2 x 500 mg) PO BID #180 12/19/22 12/12/24 Rx tabs aspirin 81 mg tablet,delayed 81 mg PO QAM #30 tabs 07/25/23 12/12/24 Rx release pantoprazole 40 mg tablet,delayed 40 mg PO BID #30 tabs 08/22/23 12/12/24 Rx release (Protonix) citalopram 40 mg tablet 40 mg PO HS 08/31/23 12/12/24 History ticagrelor 90 mg tablet (Brilinta) 90 mg PO BID #180 tabs 10/03/23 12/12/24 Rx bupropion HCl 150 mg tablet,12 hr 150 mg PO HS 10/09/23 12/12/24 History sustained-release metoprolol succinate 25 mg 12.5 mg PO DAILY 03/31/24 12/12/24 History tablet,extended release 24 hr atorvastatin 80 mg tablet 80 mg PO HS #90 tabs 08/13/24 12/12/24 Rx levothyroxine 200 mcg tablet 200 mcg PO DAILY #90 tabs 09/16/24 12/12/24 Rx metoclopramide HCl 5 mg tablet 5 mg PO TIDWMEAL nausea and 09/16/24 12/12/24 Rx vomiting 1 month #90 tabs olezarsen 80 mg/0.8 mL 80 mg subcut MONTHLY 09/16/24 12/12/24 History subcutaneous auto-injector (Tryngolza) acetaminophen 500 mg tablet 1,000 mg (2 x 500 mg) PO TID PRN 10/06/24 12/12/24 Rx qasim 7 days #42 tabs ibuprofen 800 mg tablet 800 mg PO TID PRN pain 7 days #21 10/06/24 12/12/24 Rx tabs ondansetron 4 mg disintegrating 4 mg PO Q8H PRN nausea and 10/06/24 12/12/24 Rx tablet vomiting #30 tabs insulin lispro 100 unit/mL 1 sliding scale dose subcut 10/08/24 12/12/24 Rx subcutaneous solution (Humalog USEASDIRECTD for insulin pump #50 U-100 Insulin) mL fenofibrate 160 mg tablet 160 mg PO DAILY #90 tabs 10/26/24 12/12/24 Rx trazodone 100 mg tablet 200 mg (2 x 100 mg) PO HS #180 tabs 12/07/24 12/12/24 Rx lorazepam 1 mg tablet 1 mg PO QHS sleep 12/12/24 12/12/24 History Allergies Allergy/AdvReac Type Severity Reaction Status Date / Time adhesive tape Allergy Mild Rash Verified 12/12/24 04:00 [place] pepper (green pepper) Allergy Unknown Hives Verified 12/12/24 04:00 sucralose (From Splenda Allergy Migraine Verified 12/12/24 04:00 (sucralose)) Artificial Sweetners AdvReac Migraine Uncoded 12/12/24 04:00 Vital Signs Vital Signs - 24 hr 12/11/24 20:57 Temperature 98.1 F Pulse Rate 114 H Respiratory Rate 17 Blood Pressure 144/70 H Pulse Oximetry 97 Oxygen Delivery Room Air Exam Const: General: uncomfortable Other: Obese female patient lying supine at this time. HENMT: Face/Nose/Sinus: Normal nares present Mouth: Yes moist mucous membranes Eyes: General: appearance normal, both eyes and all related structures Neck: Neck: supple and no JVD Lymphatic: lymphadenopathy not noted Resp: Effort & Inspection: normal respiratory effort Auscultation: clear to auscultation bilaterally Cardio: Rate: tachycardic Rhythm: regular rhythm Heart sounds: no gallops, no murmurs and no rubs GI: GI Palp: Yes Soft to palpation and Yes Tenderness to palpation present (GI) (Right upper quadrant, epigastric and left upper quadrant) Auscultation: normal bowel sounds Skin: General skin exam: normal color, no rashes or lesions noted and no erythema Lesions: no lesions noted Rashes: no rashes noted Wounds: no wounds Neuro: Speech: normal speech Motor exam (neuro): 5/5 motor strength present throughout and Normal motor muscle tone present throughout Sensory Exam: normal sensation Extrem: Other: Freely and equally moves all extremities well without deficit. Psych: Mental Status: mental status grossly normal Affect: normal affect H&P: Results Labs Labs: Short CBC 12/11/24 Range/Units 21:19 WBC 8.4 (4.5-10.0) K/mm3 Hgb 13.7 (12.0-15.0) g/dL Hct 40.8 (37.0-47.0) % Plt Count 224 (150-375) k/mm3 BMP 12/11/24 12/12/24 21:20 01:54 Sodium 133 L 134 L Potassium 4.5 4.6 Chloride 97 L 102 Carbon Dioxide 22 23 BUN 14 14 Creatinine 0.68 L 0.62 L Glucose 516 H* 359 H Calcium 9.4 8.8 Cardiac Enzymes 12/11/24 Range/Units 21:21 Troponin I < 0.012 (0.000-0.034) ng/mL Liver Function 12/11/24 Range/Units 21:20 Total Bilirubin 0.4 (0.2-1.3) mg/dL AST 41 H (14-36) U/L ALT 43 H (6-35) U/L Alkaline Phosphatase 106 (38-126) U/L Albumin 4.3 (3.5-5.1) g/dL Urine 12/11/24 Range/Units 23:07 Urine Color Yellow (Yellow) Urine Appearance Clear (Clear) Urine pH 6.0 (5.0-9.0) Ur Specific [place] > 1.045 H (1.001-1.035) Urine Protein Negative (Negative) mg/dL Urine Glucose (UA) 3+ H (Negative) mg/dL Assessment and Plan Assessment and plan (1) Dehydration: Code(s): E86.0 - Dehydration Status: Acute Assessment and Plan: * Secondary to nausea/vomiting/diarrhea * Antiemetics ordered for treatment of nausea. * As evidenced elevated anion gap that has since returned normal. * Received a 1L IV fluid bolus in the ER. * Patient placed on normal saline at a rate of 100 mL/hour * Continue to monitor and trend labs. 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 and HS * A1c was checked and is 12.7 * Hypoglycemic protocol * Not currently in DKA. Anion gap that was 14 is now 9. * Clear liquid diet for now. (3) Hypertriglyceridemia: Code(s): E78.1 - Pure hyperglyceridemia Status: Chronic Assessment and Plan: * Secondary to FCS * Consult Dr. Kaminski in Nephrology for evaluation of potential need of pheresis as he has done this in the past for her. * Last Monthly dose of Tryngolza was taken 11/27/24. * Continue home fenofibrate and Atorvastatin 80 mg. (4) Acute generalized abdominal pain: Code(s): R10.84 - Generalized abdominal pain Status: Acute Assessment and Plan: * See #1. * CT scan abdomen pelvis showing a mural thickening in the distal esophagus and proximal stomach suspicious for gastroenteritis. There is also a fatty liver present. (5) Gastroenteritis: Code(s): K52.9 - Noninfective gastroenteritis and colitis, unspecified Status: Acute Assessment and Plan: * See #4 * Continue IVF Hydration * Continue prn Antiemetics * Protonix 40 mg IVP Daily (6) GERD (gastroesophageal reflux disease): Qualifiers: Esophagitis presence: esophagitis presence not specified Qualified Code(s): K21.9 - Gastro-esophageal reflux disease without esophagitis Code(s): K21.9 - Gastro-esophageal reflux disease without esophagitis Status: Chronic Assessment and Plan: * Protonix 40 mg IVP Daily (7) Hypomagnesemia: Code(s): E83.42 - Hypomagnesemia Status: Acute Assessment and Plan: * 1.5 in ER. * Replacement with 2G given as a rider. Quality VTE Prophylaxis VTE prophylaxis: pharmacologic ordered Hospitalist [facility] Advance Care Plan I have confirmed that the patient's Advanced Care Plan is present, code status is documented, or surrogate decision maker is listed in patient medical record.: Yes Medication Reconciliation I have utilized all available resources to obtain, update and review the patients current medications (includes all prescriptions, OTC, herbals, cannabis, and nutritional supplements).: Yes
--- NOTE | 2024-12-12 03:59 | PC.NURSE ---
PATIENT ARRIVED ON 3 MEDSURG AT 0352
[2024-12-12] MEDS: diphenhydrAMINE HCl CAP 25 MG CAPSULE 50 MG PO ×3 (05:23→20:00)
[2024-12-12] MEDS: MORPHINE SULFATE (*CRX) 2 MG/ML INJ IV PUSH ×2 (05:23→10:50)
[2024-12-12] MEDS: LEVOTHYROXINE SODIUM 100 MCG TABLET 200 MCG PO (05:23)
--- NOTE | 2024-12-12 08:09 | PM.EVENT ---
Event Note Event Note Event Note: Patient is a 49-year-old female who was admitted to the medical unit for further evaluation and treatment acute on chronic abdominal pain secondary to hyper triglyceridemia and elevated blood sugars. Patient had been seen and assessed by prior provider same day follow-up assessment patient still reporting ABD pain and nausea no further vomiting. Patient currently follows outpatient with Dr. Kaminski for continued plasmapheresis however patient was transition to Tryngozla monthly she believes around July. Patient's initial blood sugars were greater than 500 and beta mildly elevated as well as eye gap of 14 she was given IV fluids in the emergency department and insulin with resolution and anion gap closed. Triglycerides for greater than 700 patient was continued on IV fluids and consulted Nephrology to see patient may need plasmapheresis and patient will resume her insulin pump from home in monitor blood sugars closely. CT abdomen showed acute finding showed mural thickening within the distal esophagus and proximal stomach likely gastroenteritis.
[2024-12-12] MEDS: TICAGRELOR 90 MG TABLET PO ×2 (08:36→20:00)
[2024-12-12] MEDS: ACETAMINOPHEN 500 MG TABLET 1000 MG PO (08:37)
[2024-12-12] MEDS: ASPIRIN 81 MG ENTERIC TABLET PO (08:37)
[2024-12-12] MEDS: METOPROLOL SUCCINATE EXT REL 12.5 MG TABCR PO (08:37)
[2024-12-12] MEDS: FENOFIBRATE NANOCRYSTALLIZED 145 MG TABLET PO (08:37)
[2024-12-12] MEDS: ENOXAPARIN 40 MG/0.4 ML SYRINGE SUB-Q (08:39)
[2024-12-12] MEDS: INSULIN ASPART (*BKC) 100 UNITS/ML SUB-Q ×5 (08:40→23:10)
[2024-12-12] MEDS: METOCLOPRAMIDE HCL 5 MG TABLET PO ×3 (08:40→16:53)
[2024-12-12 09:01] LABS: Hematocrit 36.9 % (37.0-47.0); Hemoglobin 11.7 g/dL (12.0-15.0); Mean Corpuscular HGB Conc 31.7 g/dl (32-36); Mean Corpuscular Hemoglobin 29.1 pg (26-34); Mean Corpuscular Volume 91.8 fl (80-100); Platelet Count Result 189 k/mm3 (150-375); Red Blood Count 4.02 M/mm3 (4.2-5.4); White Blood Count 7.0 K/mm3 (4.5-10.0)
[2024-12-12 09:26] LABS: Alanine Aminotransferase 30 U/L (6-35); Albumin Level 3.6 g/dL (3.5-5.1); Alkaline Phosphatase 86 U/L (38-126); Anion Gap 7 mmol/L (4-12); Aspartate Amino Transferase 29 U/L (14-36); Bilirubin,Total 0.2 mg/dL (0.2-1.3); Blood Urea Nitrogen 14 mg/dL (7-17); Calcium 8.6 mg/dL (8.4-10.2); Carbon Dioxide 25 mmol/L (22-30); Chloride 103 mmol/L (98-107); Estimated CRCL calculation 105 ml/min; Estimated Glomerular Filt Rate > 60; Glucose 314 mg/dL (65-110); Magnesium 1.8 mg/dL (1.6-2.3); Potassium 4.1 mmol/L (3.4-5.0); Sodium 135 mmol/L (137-145); Total Protein 5.9 g/dL (6.3-8.2)
[2024-12-12] MEDS: HYDROmorphone HCL INJ (*CRX) 1 MG/ML SYR IV PUSH ×2 (14:48→21:32)
[2024-12-12] MEDS: LORazepam (*CRX) 1 MG TABLET PO (20:00)
[2024-12-12] MEDS: ATORVASTATIN 40 MG TABLET 80 MG PO (20:00)
[2024-12-12] MEDS: buPROPion HCL SR (12 HR) 150 MG TAB PO (20:00)
[2024-12-12] MEDS: CITALOPRAM HYDROBROMIDE 20 MG TABLET 40 MG PO (20:00)
[2024-12-12] MEDS: HYDROcodone/acetaminophen (*CRX) 5-325 MG TABLET 1 TAB PO (20:01)
[2024-12-13] MEDS: HYDROmorphone HCL INJ (*CRX) 1 MG/ML SYR IV PUSH ×6 (01:24→20:27)
[2024-12-13 04:00] VITALS: BP 147/81; PULSE 88; RESP 16; TEMP 36.6; O2SAT 98
[2024-12-13] MEDS: LEVOTHYROXINE SODIUM 100 MCG TABLET 200 MCG PO (05:21)
[2024-12-13] MEDS: SODIUM CHLORIDE 0.9% IV 1,000 ML 125 ML IV CONT ×2 (05:22→17:24)
[2024-12-13 06:24] LABS: Hematocrit 37.3 % (37.0-47.0); Hemoglobin 12.2 g/dL (12.0-15.0); Mean Corpuscular HGB Conc 32.7 g/dl (32-36); Mean Corpuscular Hemoglobin 29.3 pg (26-34); Mean Corpuscular Volume 89.4 fl (80-100); Platelet Count Result 157 k/mm3 (150-375); Red Blood Count 4.17 M/mm3 (4.2-5.4); White Blood Count 7.2 K/mm3 (4.5-10.0)
[2024-12-13 06:48] LABS: Alanine Aminotransferase 30 U/L (6-35); Albumin Level 3.7 g/dL (3.5-5.1); Alkaline Phosphatase 79 U/L (38-126); Anion Gap 7 mmol/L (4-12); Aspartate Amino Transferase 32 U/L (14-36); Bilirubin,Total 0.3 mg/dL (0.2-1.3); Blood Urea Nitrogen 7 mg/dL (7-17); Calcium 8.5 mg/dL (8.4-10.2); Carbon Dioxide 26 mmol/L (22-30); Chloride 102 mmol/L (98-107); Estimated CRCL calculation 130 ml/min; Estimated Glomerular Filt Rate > 60; Glucose 229 mg/dL (65-110); Magnesium 1.3 mg/dL (1.6-2.3); Potassium 3.8 mmol/L (3.4-5.0); Sodium 135 mmol/L (137-145); Total Protein 6.0 g/dL (6.3-8.2)
[2024-12-13] MEDS: TICAGRELOR 90 MG TABLET PO ×2 (08:41→20:29)
[2024-12-13] MEDS: PANTOPRAZOLE SODIUM IV 40 MG VIAL IV PUSH (08:41)
[2024-12-13] MEDS: METOCLOPRAMIDE HCL 5 MG TABLET PO ×3 (08:41→17:17)
[2024-12-13] MEDS: ASPIRIN 81 MG ENTERIC TABLET PO (08:41)
[2024-12-13] MEDS: FENOFIBRATE NANOCRYSTALLIZED 145 MG TABLET PO (08:41)
[2024-12-13] MEDS: ENOXAPARIN 40 MG/0.4 ML SYRINGE SUB-Q (08:41)
[2024-12-13] MEDS: MAGNESIUM SULF 2 GM/WATER 50ML 2 GM/50 ML BAG IVPB (08:42)
[2024-12-13 08:43] VITALS: PULSE 79
[2024-12-13] MEDS: METOPROLOL SUCCINATE EXT REL 12.5 MG TABCR PO (08:43)
[2024-12-13 09:41] LABS: Triglycerides 191 mg/dL (<150)
--- NOTE | 2024-12-13 10:11 | PM.CNNEP ---
Assessment and Plan Assessment and plan (1) Hypertriglyceridemia: Code(s): E78.1 - Pure hyperglyceridemia Status: Acute Assessment and Plan: the patient has hypertriglyceridemia. She is on the medication for this and it seems to be controlling her triglycerides quite well. Notably even or triglyceride level was above 700 on admission it is down to 191 today. I do not think plasmapheresis is going to help this lady. Can not to it today anyway. Will check another triglyceride level tomorrow. The patient is On fenofibrate as well. The patient is getting some insulin but is not on insulin drip. (2) Gastroenteritis: Code(s): K52.9 - Noninfective gastroenteritis and colitis, unspecified Status: Acute Assessment and Plan: The patient has gastroenteritis. She does have a history of GERD. Since her symptoms are different from the pancreatitis she had had before, her lipase is normal, and her CT shows a homogeneous pancreas, I suspect that pancreatitis is not her issue. Gastroenteritis especially since it involves the esophagus might also explain her chest pain. The patient is getting pantoprazole. (3) Acute dehydration: Code(s): E86.0 - Dehydration Status: Acute Assessment and Plan: The patient has not been eating or drinking very well. She does have some ketones in the urine which is probably from starvation ketosis since her bicarb is normal and her anion gap is normal. Will check a lactic acid as well just in case. (4) CAD (coronary artery disease): Code(s): I25.10 - Atherosclerotic heart disease of jena coronary artery without angina pectoris Status: Acute Assessment and Plan: The patient has coronary artery disease According to the chart. Her troponin was negative x1. We can repeat 1 of these and also repeat her EKG. The EKG in the ER looked okay (5) Diabetes mellitus: Qualifiers: Diabetes mellitus type: type 2 Diabetes mellitus manager intermediate insulin use: without manager intermediate use Diabetes mellitus complication status: with hyperglycemia Qualified Code(s): E11.65 - Type 2 diabetes mellitus with hyperglycemia Code(s): E11.9 - Type 2 diabetes mellitus without complications Status: Chronic Assessment and Plan: the patient has diabetes. She is on sliding scale insulin. Hospitalists to manage this. (6) Tobacco use: Code(s): Z72.0 - Tobacco use Status: Chronic Assessment and Plan: The patient should try to stop smoking. She is sick enough as it is. I suggested Chantix or patches or some other ways to stop smoking. (7) Hypomagnesemia: Code(s): E83.42 - Hypomagnesemia Status: Acute Assessment and Plan: magnesium walter yesterday and is back down today. She received a round of magnesium again today. This can sometimes be low because of the PPI She should take magnesium tablet 1 b.i.d. with food at home History of Present Illness Reason for Consult Consult date: 12/13/24 Chief Complaint Chief complaint: Dehydration, hypertriglyceridemia History of Present Illness Narrative: Casandra is a very pleasant 47-year-old lady who has multiple medical problems including diabetes type 2, hyperlipidemia, recurrent pancreatitis, allergic rhinitis, anxiety, GERD, long-term use of blood thinners, hypothyroidism, polycystic ovarian syndrome. The patient has severe hypertriglyceridemia. prior to recent, the level was not uncommonly it is above 2000. When the triglycerides get this high the patient develops abdominal discomfort sometimes with full-blown pancreatitis or sometimes just with the belly pain. She has had plasmapheresis many times before. More than 6 years ago, the patient had been followed at [facility]. There she was receiving plasmapheresis almost monthly and then they spread out the treatment because things were going well and eventually patient stopped going. She had 2 different single-lumen catheters for her plasmapheresis back then. In 2015 the patient had a subcutaneous port placed and this has been used for plasmapheresis ever since. Generally she has been coming to the hospital when she gets belly pain and getting a plasmapheresis then. recently she has been seeing a a gastroenterology specialist who placed her on Tryngolza, which is a apo-C III inhibitor. She has been getting this via monthly injections since May. As an outpatient her triglyceride levels have been running lower but still ranging from about 300 to about 1600. She went to the ER because she has been having belly pain and brain fog. She also complained of some chest pain. Her belly pain and brain fog have been going on for a few days. She says that it feels like her typical pancreatitis, however does have a little more pain in the right upper quadrant as well as her usual pancreatic pain. She also is having some indigestion /chest pain. She did have 1 troponin level in the ER which was normal. EKG apparently is about the same as before except that her heart rate is higher. Her triglyceride level was 700 on admission renal consultation was requested for plasmapheresis. Unfortunately the hospital only contracts for plasmapheresis on week days so is unable to be done yesterday or today. This morning her triglyceride levels down to 191. The patient still has abdominal discomfort. Because of this and her brain fog she feels like she would benefit from plasmapheresis. The CT scan shows mural thickening of the distal esophagus and proximal stomach suggesting gastroenteritis. Renal function is normal. Sugar is a little high in the 200s. Magnesium is only 1.3. UA shows 3+ glucose and trace ketones (anion gap is normal in blood as is bicarb) Review of Systems Constitutional: Constitutional: Reports no additional constitutional complaints Eyes: Eyes: Reports no additional eye complaints ENT: Reports system reviewed and no additional complaints, except as documented Cardiovascular: Cardiovascular: Reports no additional cardiovascular complaints Respiratory: Respiratory: Reports no additional respiratory complaints Gastrointestinal: Gastrointestinal: Reports no additional gastrointestinal complaints Genitourinary: Genitourinary: Reports no additional female genitourinary complaints Musculoskeletal: Musculoskeletal: Reports no additional musculoskeletal complaints Integumentary/Breasts: Skin/Breast: Reports system reviewed and no additional complaints, except as docu Neurologic: Reports system reviewed and no additional complaints, except as documented Psychiatric: Psychiatric: Reports no additional psychiatric complaints Endocrine: Endocrine: Reports no additional endocrine complaints [facility] Past Medical History Medical History Gastroenteritis Gastroparesis BMI 31.0-31.9,adult 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 Abnormal CT scan, esophagus Nausea Occult blood in stools CAD (coronary artery disease) Colon cancer screening Hypertriglyceridemia PCOS (polycystic ovarian syndrome) GERD (gastroesophageal reflux disease) 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 Allergic rhinitis Insulin dependent diabetes mellitus Chronic pancreatitis (~09/02/23) Anxiety Port-A-Cath in place Lipoprotein deficiency Chylomicronemia syndrome Hyperlipemia Headache Surgical History Surgical History History of wisdom tooth extraction History of tubal ligation History of partial hysterectomy History of endometrial ablation History of appendectomy History of loop electrical excision procedure (LEEP) History of exploratory laparotomy History of dilatation and curettage History of conization of cervix History of tonsillectomy Family History Family History Father Alcohol abuse Hypercholesteremia Hypertension Family history of alcoholism Family history of cardiovascular disease Diabetes mellitus Mother Hypercholesteremia Hypothyroid Cerebrovascular accident Family history of cardiovascular disease Diabetes mellitus Grandparent Skin cancer Colon cancer Heart disease Hypothyroid Cerebrovascular accident Sibling Autoimmune disorder Hypothyroid Kidney disorder Hypertension Diabetes mellitus Other Family history of kidney disease Social History Social History Social History: She smokes up to 1ppd since age 16yo. No alcohol or drug use. She has dog and a cat at home. Surrogate medical decision maker: José Miguel Jones, spouse. Code status: Full Smoking packs per day: 0.5 Smoking cigarettes per day: 10.0 Years smoked: 20 Smoking pack-years: 10.00 Smoking status: Current every day smoker Tobacco type: cigarettes Second hand tobacco smoke exposure: No Alcohol intake: never Drinks per week: 0 Substance use: never Substance use type: does not use Do You Feel Safe in your Home?: Yes Lack of Transportation: No Lack of Food: Never True Current Housing: I Have Housing Concerned About Future Housing: No Difficulty Paying Gas/Electric Bills: No Difficulty Paying for Meds: No Currently Unemployed: No Education: Associate Degree Difficulty w/ Childcare or Family Care: No Living arrangements: with family Occupation/Education: retired 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 Gender identity (if verbalized by the patient): Female Spiritual care concerns: No Meds Home Medications and Allergies Home Medications ?Medication ?Instructions ?Recorded ?Confirmed ?Type metformin 500 mg tablet 1,000 mg (2 x 500 mg) PO BID #180 12/19/22 12/12/24 Rx tabs aspirin 81 mg tablet,delayed 81 mg PO QAM #30 tabs 07/25/23 12/12/24 Rx release pantoprazole 40 mg tablet,delayed 40 mg PO BID #30 tabs 08/22/23 12/12/24 Rx release (Protonix) citalopram 40 mg tablet 40 mg PO HS 08/31/23 12/12/24 History ticagrelor 90 mg tablet (Brilinta) 90 mg PO BID #180 tabs 10/03/23 12/12/24 Rx bupropion HCl 150 mg tablet,12 hr 150 mg PO HS 10/09/23 12/12/24 History sustained-release metoprolol succinate 25 mg 12.5 mg PO DAILY 03/31/24 12/12/24 History tablet,extended release 24 hr atorvastatin 80 mg tablet 80 mg PO HS #90 tabs 08/13/24 12/12/24 Rx levothyroxine 200 mcg tablet 200 mcg PO DAILY #90 tabs 09/16/24 12/12/24 Rx metoclopramide HCl 5 mg tablet 5 mg PO TIDWMEAL nausea and 09/16/24 12/12/24 Rx vomiting 1 month #90 tabs olezarsen 80 mg/0.8 mL 80 mg subcut MONTHLY 09/16/24 12/12/24 History subcutaneous auto-injector (Tryngolza) acetaminophen 500 mg tablet 1,000 mg (2 x 500 mg) PO TID PRN 10/06/24 12/12/24 Rx qasim 7 days #42 tabs ibuprofen 800 mg tablet 800 mg PO TID PRN pain 7 days #21 10/06/24 12/12/24 Rx tabs ondansetron 4 mg disintegrating 4 mg PO Q8H PRN nausea and 10/06/24 12/12/24 Rx tablet vomiting #30 tabs insulin lispro 100 unit/mL 1 sliding scale dose subcut 10/08/24 12/12/24 Rx subcutaneous solution (Humalog USEASDIRECTD for insulin pump #50 U-100 Insulin) mL fenofibrate 160 mg tablet 160 mg PO DAILY #90 tabs 10/26/24 12/12/24 Rx trazodone 100 mg tablet 200 mg (2 x 100 mg) PO HS #180 tabs 12/07/24 12/12/24 Rx lorazepam 1 mg tablet 1 mg PO QHS sleep 12/12/24 12/12/24 History Allergies Allergy/AdvReac Type Severity Reaction Status Date / Time adhesive tape Allergy Mild Rash Verified 12/12/24 04:00 [place] pepper (green pepper) Allergy Unknown Hives Verified 12/12/24 04:00 sucralose (From Splenda Allergy Migraine Verified 12/12/24 04:00 (sucralose)) Artificial Sweetners AdvReac Migraine Uncoded 12/12/24 04:00 Vital Signs Vital Signs - 24 hr 12/12/24 14:29 12/12/24 20:00 12/12/24 20:30 Temperature 97.4 F L 97.8 F Pulse Rate 81 94 94 Respiratory Rate 16 18 18 Blood Pressure 125/80 141/85 H Pulse Oximetry 95 97 97 Oxygen Delivery Room Air 12/12/24 22:00 12/13/24 04:00 12/13/24 08:00 Temperature 97.8 F 98 F Pulse Rate 94 88 Respiratory Rate 18 16 Blood Pressure 141/85 H 147/81 H Pulse Oximetry 97 98 Oxygen Delivery Room Air 12/13/24 08:43 Temperature Pulse Rate 79 Respiratory Rate Blood Pressure Pulse Oximetry Oxygen Delivery Exam Narrative: Exam Narrative: Well developed well-nourished female in no acute distress Skin is warm and dry without rash Head normocephalic atraumatic Eyes normal sclerae and conjunctivae Mouth normal lips teeth and gums Neck no nodes no thyromegaly no carotid bruits Axillae no nodes Back no CVA tenderness Lungs symmetric and clear to auscultation and percussion Heart regular rate and rhythm without rub or gallop Abdomen bowel sounds positive soft but mildly tender diffusely, mostly in the epigastric area, no HSM, masses, or bruits. Extremities no cyanosis, clubbing, or edema Pulses 2+ equal in radial arteries Psychological not anxious or depressed Neuro alert and oriented x3 motor 5/5 cranial nerves 2-12 intact reflexes 2+ and equal in the biceps and patellar tendons cerebellar normal rapid alternating movements Results Lab Results 12/13/24 06:17 12/13/24 06:17 Lab results: Most recent lab results Calcium 8.5 mg/dL (8.4-10.2) 12/13/24 06:17 Phosphorus 4.6 mg/dL (2.5-4.5) H 12/11/24 21:20 Magnesium 1.3 mg/dL (1.6-2.3) L 12/13/24 06:17
--- NOTE | 2024-12-13 10:27 | ECG_ITS ---
Test Date: 2024-12-13 11:42:41 Measurements Intervals [place] Rate: 77 P: 55 VA: 161 QRS: 46 QRSD: 83 T: 15 QT: 388 QTc: 439 Interpretive Statements SINUS RHYTHM LOW QRS VOLTAGE IN PRECORDIAL LEADS MINIMAL Q WAVES- INFERIOR LEADS BORDERLINE ECG Compared to ECG 12/11/2024 20:58:56 HEART RATE HAS DECREASED Low QRS voltage now present Electronically Signed On 12-13-2024 14:50:01 CDT by Baron Bowers D.O.
[2024-12-13 11:22] LABS: Troponin I < 0.012 ng/mL (0.000-0.034)
[2024-12-13] MEDS: diphenhydrAMINE HCl CAP 25 MG CAPSULE 50 MG PO ×2 (12:05→20:29)
--- NOTE | 2024-12-13 12:08 | PC.NURSE ---
Pt insulin pump on and running. Bolus worksheet at bedside with patient, and signed pump agreement on chart. Pt aware she is to manage her pump and bolus from our finger sticks.
--- NOTE | 2024-12-13 12:53 | P.PNIM_ITS ---
Progress Note: A&P Assessment and Plan (1) Dehydration: Code(s): E86.0 - Dehydration Status: Acute Assessment and Plan: Secondary to nausea/vomiting/diarrhea * Antiemetics ordered for treatment of nausea. * As evidenced elevated anion gap that has since returned normal. * Received a 1L IV fluid bolus in the ER. * Patient placed on normal saline at a rate of 100 mL/hour * Continue to monitor and trend labs. (2) Diabetes mellitus: Qualifiers: Diabetes mellitus type: type 2 Diabetes mellitus assisted insulin use: without medical terminologist use Diabetes mellitus complication status: with hyperglycemia Qualified Code(s): E11.65 - Type 2 diabetes mellitus with hyperglycemia Code(s): E11.9 - Type 2 diabetes mellitus without complications Status: Chronic Assessment and Plan: Patient typically on insulin pump reported to this provider that the unit prior to arrival initial glucose of 516 * Initiated sliding scale insulin * Resume insulin pump once charged * Glucose checks a.c. and HS * A1c was checked and is 12.7 * Hypoglycemic protocol * Not currently in DKA. Anion gap that was 14 is now 9. * Advance to diabetic diet (3) Hypertriglyceridemia: Code(s): E78.1 - Pure hyperglyceridemia Status: Chronic Assessment and Plan: Secondary to FCS * Consult Nephrology for evaluation of potential need of pheresis currently is not need plasmapheresis triglycerides down to 191 today * Last Monthly dose of Tryngolza was taken 11/27/24. * Continue home fenofibrate and Atorvastatin 80 mg. * Follow-up triglyceride tomorrow morning if stable can likely discharge home (4) Acute generalized abdominal pain: Code(s): R10.84 - Generalized abdominal pain Status: Acute Assessment and Plan: * See #1. * CT scan abdomen pelvis showing a mural thickening in the distal esophagus and proximal stomach suspicious for gastroenteritis. There is also a fatty liver present. * Continue pantoprazole (5) Gastroenteritis: Code(s): K52.9 - Noninfective gastroenteritis and colitis, unspecified Status: Acute Assessment and Plan: See #4 * Continue IVF Hydration * Continue prn Antiemetics * Protonix 40 mg IVP Daily (6) GERD (gastroesophageal reflux disease): Qualifiers: Esophagitis presence: esophagitis presence not specified Qualified Code(s): K21.9 - Gastro-esophageal reflux disease without esophagitis Code(s): K21.9 - Gastro-esophageal reflux disease without esophagitis Status: Chronic Assessment and Plan: * Protonix 40 mg IVP Daily (7) Hypomagnesemia: Code(s): E83.42 - Hypomagnesemia Status: Acute Assessment and Plan: * 1.5 in ER. * Replacement with 2G given as a rider. * 1.3 12/13 gave 2g * Daily mac * Will at oral replacement 400 mg b.i.d. Plan Code status: Full code per patient DVT prophylaxis: Lovenox Stress ulcer prophylaxis: Protonix 40 daily PT/OT notes: Ambulatory Disposition: Patient was admitted for observation to the medical unit for gastroenteritis hypertriglyceridemia, and hyperglycemia improved IV fluid administration insulin. Follow-up triglycerides in the a.m. if stable can likely discharge home tomorrow Time Spent With Patient Time with patient: 15 - 25 minutes Subjective Date/time seen: 12/13/24 12:53 Interval history: Patient is a 49-year-old female admitted for further evaluation treatment gastroenteritis, hypertriglyceridemia hyperglycemia. 12/13/2024: Patient still reporting mild ABD pain but no N/V as been tolerating oral intake. Triglycerides initially 700 admission down to 191 today. Currently no need for plasmapheresis. Review of Systems Review of Systems: All systems reviewed & are unremarkable except as noted in HPI and below Exam Const: General: uncomfortable Other: Obese female patient lying supine at this time. HENMT: Face/Nose/Sinus: Normal nares present Mouth: Yes moist mucous membranes Eyes: General: appearance normal, both eyes and all related structures Neck: Neck: supple and no JVD Lymphatic: lymphadenopathy not noted Resp: Effort & Inspection: normal respiratory effort Auscultation: clear to auscultation bilaterally Cardio: Rate: tachycardic Rhythm: regular rhythm Heart sounds: no gallops, no murmurs and no rubs GI: GI Palp: Yes Tenderness to palpation present (GI) (mild) Auscultation: normal bowel sounds Skin: General skin exam: normal color, no rashes or lesions noted, no erythema, No lesion and No rashes Lesions: no lesions noted Rashes: no rashes noted Wounds: no wounds Neuro: Speech: normal speech Motor exam (neuro): 5/5 motor strength present throughout and Normal motor muscle tone present throughout Sensory Exam: normal sensation Extrem: Other: Freely and equally moves all extremities well without deficit. Psych: Mental Status: mental status grossly normal Affect: normal affect Objective Data Vital Signs Vital Signs: Vital Signs - 24 hr 12/12/24 14:29 12/12/24 20:00 12/12/24 20:30 Temperature 97.4 F L 97.8 F Pulse Rate 81 94 94 Respiratory Rate 16 18 18 Blood Pressure 125/80 141/85 H Pulse Oximetry 95 97 97 Oxygen Delivery Room Air 12/12/24 22:00 12/13/24 04:00 12/13/24 08:00 Temperature 97.8 F 98 F Pulse Rate 94 88 Respiratory Rate 18 16 Blood Pressure 141/85 H 147/81 H Pulse Oximetry 97 98 Oxygen Delivery Room Air 12/13/24 08:43 Temperature Pulse Rate 79 Respiratory Rate Blood Pressure Pulse Oximetry Oxygen Delivery Intake/Output Intake/Output: Intake & Output 12/10/24 12/11/24 12/12/24 12/13/24 23:59 23:59 23:59 23:59 Intake Total 1000 4260 1388.8 Balance 1000 4260 1388.8 Meds/Results Medications: Active Medications Generic Name Dose Route Start Last Admin Trade Name Freq PRN Reason Stop Dose Admin Acetaminophen 1,000 mg 12/12/24 04:28 12/12/24 08:37 Acetaminophen 500 Mg Tablet PO 1,000 mg TID PRN Administration Pain 1-3 Hydrocodone Bitart/Acetaminophen 1 tab 12/12/24 13:47 12/12/24 20:01 Hydrocodone/Acetaminophen (*Crx) 5-325 Mg Tablet PO 1 tab Q4H PRN Administration Pain Rated 4-6 Aspirin 81 mg 12/12/24 09:00 12/13/24 08:41 Aspirin 81 Mg Enteric Tablet PO 81 mg QAM RAPHAEL Administration Atorvastatin Calcium 80 mg 12/12/24 21:00 12/12/24 20:00 Atorvastatin 40 Mg Tablet PO 80 mg HS RAPHAEL Administration Bupropion HCl 150 mg 12/12/24 21:00 12/12/24 20:00 Bupropion Hcl Sr (12 Hr) 150 Mg Tab PO 150 mg HS RAPHAEL Administration Citalopram Hydrobromide 40 mg 12/12/24 21:00 12/12/24 20:00 Citalopram Hydrobromide 20 Mg Tablet PO 40 mg HS RAPHAEL Administration Dextrose 12.5 gm 12/12/24 04:31 Dextrose 50% 25 Gm/50 Ml Syringe IV PUSH PRN PRN Hypoglycemia Protocol Diphenhydramine HCl 50 mg 12/12/24 05:08 12/13/24 12:05 Diphenhydramine Hcl Cap 25 Mg Capsule PO 50 mg Q6H PRN Administration Itching Enoxaparin Sodium 40 mg 12/12/24 09:00 12/13/24 08:41 Enoxaparin 40 Mg/0.4 Ml Syringe SUB-Q 40 mg DAILY RAPHAEL Administration Fenofibrate 145 mg 12/12/24 09:00 12/13/24 08:41 Fenofibrate Nanocrystallized 145 Mg Tablet PO 145 mg QAM RAPHAEL Administration Glucagon 1 mg 12/12/24 04:31 Glucagon For Inj 1 Mg Vial IM PRN PRN Hypoglycemia Protocol Glucose 15 gm 12/12/24 04:31 Glucose Oral Gel 15 Gm Of Glucse In 37.5 Gm Tube PO PRN PRN Hypoglycemia Protocol Hydromorphone HCl 1 mg 12/12/24 13:47 12/13/24 11:56 Hydromorphone Hcl Inj (*Crx) 1 Mg/Ml Syr IV PUSH 1 mg Q3H PRN Administration Pain Rated 7-10 Sodium Chloride 1,000 mls @ 100 mls/hr 12/12/24 02:30 12/13/24 05:22 Normal Saline Iv IV CONT 125 mls/hr .Q10H RAPHAEL Administration Dextrose 1,000 mls @ 100 mls/hr 12/12/24 04:31 Dextrose 5% 1,000 Ml IVPB PRN PRN Hypoglycemia Protocol Ibuprofen 800 mg 12/12/24 04:42 Ibuprofen 400 Mg Tablet PO TID PRN Pain 4-6 Insulin Aspart 3 - 6 units 12/13/24 12:00 12/13/24 12:08 Insulin Aspart (*Bkc) 100 Units/Ml SUB-Q Not Given ACHS [facility] [place] Protocol Insulin Human Regular 1 each 12/13/24 06:00 Home Medication Insulin XX DAILY@0600 [facility] Levothyroxine Sodium 200 mcg 12/12/24 06:30 12/13/24 05:21 Levothyroxine Sodium 100 Mcg Tablet PO 200 mcg DAILY@0630 RAPHAEL Administration Lorazepam 1 mg 12/12/24 21:00 12/12/24 20:00 Lorazepam (*Crx) 1 Mg Tablet PO 1 mg QHS RAPHAEL Administration Metoclopramide HCl 5 mg 12/12/24 08:00 12/13/24 11:52 Metoclopramide Hcl 5 Mg Tablet PO 5 mg TIDWM RAPHAEL Administration Metoprolol Succinate 12.5 mg 12/12/24 09:00 12/13/24 08:43 Metoprolol Succinate Ext Rel 12.5 Mg Tabcr PO 12.5 mg DAILY RAPHAEL Administration Miscellaneous Information 1 each 12/12/24 00:01 12/12/24 09:30 Olezarsen [Tryngolza] 80 Mg/0.8 Ml Auto-Injector Is Nonform, Can Pt Bring From Home Or Hol XX 01/11/25 00:00 Not Given CLARIFY [facility] [place] Non-Formulary Medication 80 mg 12/28/24 09:00 Olezarsen [Tryngolza] SUB-Q 01/27/25 08:59 MONTHLY [facility] [place] Ondansetron HCl 4 mg 12/12/24 04:31 Ondansetron Inj 4 Mg/2 Ml Vial IV PUSH Q6H PRN Nausea And Vomiting Pantoprazole Sodium 40 mg 12/12/24 09:00 12/13/24 08:41 Pantoprazole Sodium Iv 40 Mg Vial IV PUSH 40 mg QAM RAPHAEL Administration Ticagrelor 90 mg 12/12/24 09:00 12/13/24 08:41 Ticagrelor 90 Mg Tablet PO 90 mg Q12HR RAPHAEL Administration Trazodone HCl 200 mg 12/12/24 21:00 12/12/24 20:00 Trazodone Hcl 50 Mg Tablet PO 200 mg HS RAPHAEL Administration Radiology Results: ITS Impressions Abdomen/Pelvis CT 12/11/24 23:00 IMPRESSION: Mural thickening within the distal esophagus and proximal stomach for which a gastroenteritis is suspected. Fatty infiltration of an enlarged liver. Labs Labs: Laboratory Results - last 24 hr 12/12/24 12/12/24 12/13/24 16:37 20:35 06:17 WBC 7.2 RBC 4.17 L Hgb 12.2 Hct 37.3 MCV 89.4 MCH 29.3 MCHC 32.7 RDW 14.6 H Plt Count 157 MPV 9.2 Sodium 135 L Potassium 3.8 Chloride 102 Carbon Dioxide 26 Anion Gap 7 BUN 7 D Creatinine 0.47 L Estim Creat Clear Calc 130 Estimated GFR > 60 Glucose 229 H POC Capillary Glucose 268 H 314 H Calcium 8.5 Magnesium 1.3 L Total Bilirubin 0.3 AST 32 ALT 30 Alkaline Phosphatase 79 Troponin I Total Protein 6.0 L Albumin 3.7 Triglycerides 191 H 12/13/24 12/13/24 12/13/24 07:55 10:47 11:52 WBC RBC Hgb Hct MCV MCH MCHC RDW Plt Count MPV Sodium Potassium Chloride Carbon Dioxide Anion Gap BUN Creatinine Estim Creat Clear Calc Estimated GFR Glucose POC Capillary Glucose 218 H 232 H Calcium Magnesium Total Bilirubin AST ALT Alkaline Phosphatase Troponin I < 0.012 Total Protein Albumin Triglycerides Quality VTE Prophylaxis VTE prophylaxis: pharmacologic ordered -Patient's previous records reviewed on admission -ER notes reviewed in detail on admission -discussed all findings and current treatment plan with patient/Family/POA -Consultations reviewed for recommendations -Patient's disposition for safe discharge discussed with home health care case manager Dictation performed by [employer] direct speech recognition software, therefore singe machine operator variants and typographical errors may occur. Hospitalist MIPS Advance Care Plan I have confirmed that the patient's Advanced Care Plan is present, code status is documented, or surrogate decision maker is listed in patient medical record.: Yes Medication Reconciliation I have utilized all available resources to obtain, update and review the patie nts current medications (includes all prescriptions, OTC, herbals, cannabis, and nutritional supplements).: Yes The patient is not eligible for med reconciliation; the patient is in a emergent medical situation where delaying treatment would jeopardize the patients health.: No
[2024-12-13 14:00] VITALS: BP 122/69; PULSE 76; RESP 16; TEMP 36.4; O2SAT 98
--- NOTE | 2024-12-13 16:44 | PC.NURSE ---
Message left for software client architect.
[2024-12-13] MEDS: MAGNESIUM OXIDE 400 MG TABLET PO (17:17)
[2024-12-13] MEDS: buPROPion HCL SR (12 HR) 150 MG TAB PO (20:28)
[2024-12-13] MEDS: ATORVASTATIN 40 MG TABLET 80 MG PO (20:28)
[2024-12-13] MEDS: LORazepam (*CRX) 1 MG TABLET PO (20:29)
[2024-12-13] MEDS: CITALOPRAM HYDROBROMIDE 20 MG TABLET 40 MG PO (20:29)
[2024-12-13] MEDS: ONDANSETRON INJ 4 MG/2 ML VIAL IV PUSH (20:36)
[2024-12-13] MEDS: INSULIN ASPART (*BKC) 100 UNITS/ML SUB-Q (21:41)
[2024-12-13 22:00] VITALS: BP 135/77; PULSE 86; RESP 18; TEMP 36.8; O2SAT 97
[2024-12-14] MEDS: HYDROmorphone HCL INJ (*CRX) 1 MG/ML SYR IV PUSH ×2 (00:32→10:40)
[2024-12-14] MEDS: HYDROcodone/acetaminophen (*CRX) 5-325 MG TABLET 1 TAB PO ×2 (02:40→13:17)
[2024-12-14] MEDS: diphenhydrAMINE HCl CAP 25 MG CAPSULE 50 MG PO ×2 (02:40→12:16)
[2024-12-14 05:41] LABS: Hematocrit 36.1 % (37.0-47.0); Hemoglobin 11.8 g/dL (12.0-15.0); Mean Corpuscular HGB Conc 32.7 g/dl (32-36); Mean Corpuscular Hemoglobin 29.0 pg (26-34); Mean Corpuscular Volume 88.7 fl (80-100); Platelet Count Result 167 k/mm3 (150-375); Red Blood Count 4.07 M/mm3 (4.2-5.4); White Blood Count 7.3 K/mm3 (4.5-10.0)
[2024-12-14 06:00] VITALS: BP 133/73; PULSE 81; RESP 18; TEMP 36.9; O2SAT 98
[2024-12-14 06:04] LABS: Alanine Aminotransferase 29 U/L (6-35); Albumin Level 3.5 g/dL (3.5-5.1); Alkaline Phosphatase 75 U/L (38-126); Anion Gap 5 mmol/L (4-12); Aspartate Amino Transferase 30 U/L (14-36); Bilirubin,Total 0.3 mg/dL (0.2-1.3); Blood Urea Nitrogen 6 mg/dL (7-17); Calcium 8.4 mg/dL (8.4-10.2); Carbon Dioxide 27 mmol/L (22-30); Chloride 102 mmol/L (98-107); Estimated CRCL calculation 121 ml/min; Estimated Glomerular Filt Rate > 60; Glucose 241 mg/dL (65-110); Magnesium 1.6 mg/dL (1.6-2.3); Potassium 3.7 mmol/L (3.4-5.0); Sodium 134 mmol/L (137-145); Total Protein 6.0 g/dL (6.3-8.2); Triglycerides 233 mg/dL (<150)
[2024-12-14] MEDS: INSULIN ASPART (*BKC) 100 UNITS/ML SUB-Q (06:15)
[2024-12-14] MEDS: LEVOTHYROXINE SODIUM 100 MCG TABLET 200 MCG PO (06:17)
[2024-12-14 08:49] VITALS: PULSE 84
[2024-12-14] MEDS: METOPROLOL SUCCINATE EXT REL 12.5 MG TABCR PO (08:49)
[2024-12-14] MEDS: METOCLOPRAMIDE HCL 5 MG TABLET PO ×2 (08:50→12:15)
[2024-12-14] MEDS: TICAGRELOR 90 MG TABLET PO (08:50)
[2024-12-14] MEDS: ASPIRIN 81 MG ENTERIC TABLET PO (08:50)
[2024-12-14] MEDS: FENOFIBRATE NANOCRYSTALLIZED 145 MG TABLET PO (08:50)
[2024-12-14] MEDS: MAGNESIUM OXIDE 400 MG TABLET PO (08:50)
[2024-12-14] MEDS: ENOXAPARIN 40 MG/0.4 ML SYRINGE SUB-Q (08:54)
[2024-12-14] MEDS: PANTOPRAZOLE SODIUM IV 40 MG VIAL IV PUSH (08:54)
--- NOTE | 2024-12-14 11:12 | P.PNNP_ITS ---
Progress Note: A&P Assessment and Plan (1) Hypertriglyceridemia: Code(s): E78.1 - Pure hyperglyceridemia Status: Inactive Assessment and Plan: * triglyceride levels noted * does not meet criteria for plasmapheresis (i.e. TG level > 1000) * last session of plasmapheresis for this issue was on her admission in May 2024 * it would seems since her initiation of Tryngolza therapy, her triglyceride levels have doing much better... * continue ongoing medical therapy (2) Abdominal pain: Qualifiers: Abdominal location: right upper quadrant Qualified Code(s): R10.11 - Right upper quadrant pain Code(s): R10.9 - Unspecified abdominal pain Status: Acute Assessment and Plan: * acute on chronic * presumably due known history of chronic pancreatitis * PRN pain medications and antiemetics (3) Nausea & vomiting: Code(s): R11.2 - Nausea with vomiting, unspecified Status: Acute Assessment and Plan: * presumably related to pancreatitis * however, suspect an element of gastroenteritis as well * continue PRN anti-emetics (4) Chronic pancreatitis: Qualifiers: Pancreatitis type: unspecified pancreatitis type Qualified Code(s): K 86.1 - Other chronic pancreatitis Code(s): K86.1 - Other chronic pancreatitis Status: Acute Assessment and Plan: * known history * continue supportive therapy (5) Insulin dependent diabetes mellitus: Status: Chronic Assessment and Plan: * on home insulin pump * follow accu-cheks Nothing much else to add -- will follow from a distance. L Subjective Date/time seen: 12/14/24 11:12 Interval history: Follow-up for hypertriglyceridemia. Chart reviewed -- assuming care from Dr. Valdez -- triglyceride level within reason without any specific interventions; still with some on/off abdominal pain but seem to have improved in general; no acute issues/events overnight or earlier this morning. Exam 2 Narrative: General: WD/WN female in NAD Heart: normal S1 and S2; no rub Lungs: clear to auscultation Abdomen: soft, mild TTP present; positive bowel sounds Extremities: no cyanosis or clubbing; trace edema Skin: warm and dry Objective Data Vital Signs Vital Signs: Vital Signs Temp Pulse Resp BP Pulse Ox O2 Del Method 12/14/24 08:49 84 12/14/24 08:00 Room Air 12/14/24 06:00 98.5 F 81 18 133/73 98 12/13/24 22:00 98.2 F 86 18 135/77 97 12/13/24 14:00 97.6 F 76 16 122/69 98 Intake/Output Intake/Output: Intake & Output 12/11/24 12/12/24 12/13/24 12/14/24 23:59 23:59 23:59 23:59 Intake Total 1000 4260 2748.8 670 Balance 1000 4260 2748.8 670 Meds/Results Medications: Active Medications Generic Name Dose Route Start Last Admin Trade Name Freq PRN Reason Stop Dose Admin Acetaminophen 1,000 mg 12/12/24 04:28 12/12/24 08:37 Acetaminophen 500 Mg Tablet PO 1,000 mg TID PRN Administration Pain 1-3 Hydrocodone Bitart/Acetaminophen 1 tab 12/12/24 13:47 12/14/24 02:40 Hydrocodone/Acetaminophen (*Crx) 5-325 Mg Tablet PO 1 tab Q4H PRN Administration Pain Rated 4-6 Aspirin 81 mg 12/12/24 09:00 12/14/24 08:50 Aspirin 81 Mg Enteric Tablet PO 81 mg QAM RAPHAEL Administration Atorvastatin Calcium 80 mg 12/12/24 21:00 12/13/24 20:28 Atorvastatin 40 Mg Tablet PO 80 mg HS RAPHAEL Administration Bupropion HCl 150 mg 12/12/24 21:00 12/13/24 20:28 Bupropion Hcl Sr (12 Hr) 150 Mg Tab PO 150 mg HS RAPHAEL Administration Citalopram Hydrobromide 40 mg 12/12/24 21:00 12/13/24 20:29 Citalopram Hydrobromide 20 Mg Tablet PO 40 mg HS RAPHAEL Administration Dextrose 12.5 gm 12/12/24 04:31 Dextrose 50% 25 Gm/50 Ml Syringe IV PUSH PRN PRN Hypoglycemia Protocol Diphenhydramine HCl 50 mg 12/12/24 05:08 12/14/24 12:16 Diphenhydramine Hcl Cap 25 Mg Capsule PO 50 mg Q6H PRN Administration Itching Enoxaparin Sodium 40 mg 12/12/24 09:00 12/14/24 08:54 Enoxaparin 40 Mg/0.4 Ml Syringe SUB-Q 40 mg DAILY RAPHAEL Administration Fenofibrate 145 mg 12/12/24 09:00 12/14/24 08:50 Fenofibrate Nanocrystallized 145 Mg Tablet PO 145 mg QAM RAPHAEL Administration Glucagon 1 mg 12/12/24 04:31 Glucagon For Inj 1 Mg Vial IM PRN PRN Hypoglycemia Protocol Glucose 15 gm 12/12/24 04:31 Glucose Oral Gel 15 Gm Of Glucse In 37.5 Gm Tube PO PRN PRN Hypoglycemia Protocol Hydromorphone HCl 1 mg 12/12/24 13:47 12/14/24 10:40 Hydromorphone Hcl Inj (*Crx) 1 Mg/Ml Syr IV PUSH 1 mg Q3H PRN Administration Pain Rated 7-10 Sodium Chloride 1,000 mls @ 100 mls/hr 12/12/24 02:30 12/13/24 17:24 Normal Saline Iv IV CONT 100 mls/hr .Q10H RAPHAEL Infusion Dextrose 1,000 mls @ 100 mls/hr 12/12/24 04:31 Dextrose 5% 1,000 Ml IVPB PRN PRN Hypoglycemia Protocol Ibuprofen 800 mg 12/12/24 04:42 Ibuprofen 400 Mg Tablet PO TID PRN Pain 4-6 Insulin Aspart 3 - 6 units 12/13/24 12:00 12/14/24 06:15 Insulin Aspart (*Bkc) 100 Units/Ml SUB-Q 3 units ACHS RAPHAEL Administration Protocol Insulin Human Regular 1 each 12/13/24 06:00 Home Medication Insulin XX DAILY@0600 [facility] Levothyroxine Sodium 200 mcg 12/12/24 06:30 12/14/24 06:17 Levothyroxine Sodium 100 Mcg Tablet PO 200 mcg DAILY@0630 RAPHAEL Administration Lorazepam 1 mg 12/12/24 21:00 12/13/24 20:29 Lorazepam (*Crx) 1 Mg Tablet PO 1 mg QHS RAPHAEL Administration Magnesium Oxide 400 mg 12/13/24 17:00 12/14/24 08:50 Magnesium Oxide 400 Mg Tablet PO 400 mg BID RAPHAEL Administration Metoclopramide HCl 5 mg 12/12/24 08:00 12/14/24 12:15 Metoclopramide Hcl 5 Mg Tablet PO 5 mg TIDWM RAPHAEL Administration Metoprolol Succinate 12.5 mg 12/12/24 09:00 12/14/24 08:49 Metoprolol Succinate Ext Rel 12.5 Mg Tabcr PO 12.5 mg DAILY RAPHAEL Administration Miscellaneous Information 1 each 12/12/24 00:01 12/12/24 09:30 Olezarsen [Tryngolza] 80 Mg/0.8 Ml Auto-Injector Is Nonform, Can Pt Bring From Home Or Hol XX 01/11/25 00:00 Not Given CLARIFY RAPHAEL Non-Formulary Medication 80 mg 12/28/24 09:00 Olezarsen [Tryngolza] SUB-Q 01/27/25 08:59 MONTHLY RAPHAEL Ondansetron HCl 4 mg 12/12/24 04:31 12/13/24 20:36 Ondansetron Inj 4 Mg/2 Ml Vial IV PUSH 4 mg Q6H PRN Administration Nausea And Vomiting Pantoprazole Sodium 40 mg 12/12/24 09:00 12/14/24 08:54 Pantoprazole Sodium Iv 40 Mg Vial IV PUSH 40 mg QAM RAPHAEL Administration Ticagrelor 90 mg 12/12/24 09:00 12/14/24 08:50 Ticagrelor 90 Mg Tablet PO 90 mg Q12HR RAPHAEL Administration Trazodone HCl 200 mg 12/12/24 21:00 12/13/24 21:29 Trazodone Hcl 50 Mg Tablet PO 200 mg HS RAPHAEL Administration Radiology Results: ITS Impressions Abdomen/Pelvis CT 12/11/24 23:00 IMPRESSION: Mural thickening within the distal esophagus and proximal stomach for which a gastroenteritis is suspected. Fatty infiltration of an enlarged liver. Labs Labs: Laboratory Tests 12/14/24 05:32 12/14/24 05:32 Calcium 8.4 Magnesium 1.6 Total Bilirubin 0.3 AST 30 ALT 29 Alkaline Phosphatase 75 Total Protein 6.0 L Albumin 3.5 Triglycerides 233 H
[2024-12-14 12:05] VITALS: BMI 29.6
--- NOTE | 2024-12-14 15:06 | P.DS_ITS ---
DS: Admitting Diagnosis Discharge Date 12/14/2024 Admitting Diagnosis Dehydration/hyperglycemia/hypertriglyceridemia/gastroenteritis/hypo magnesium DS: Discharge Diagnosis Discharge Diagnosis (1) Dehydration: Code(s): E86.0 - Dehydration Status: Acute (2) Diabetes mellitus: Qualifiers: Diabetes mellitus complication status: with hyperglycemia Diabetes mellitus wood heel finisher insulin use: without retirement use Diabetes mellitus type: type 2 Qualified Code(s): E11.65 - Type 2 diabetes mellitus with hyperglycemia Code(s): E11.9 - Type 2 diabetes mellitus without complications Status: Chronic (3) Hypertriglyceridemia: Code(s): E78.1 - Pure hyperglyceridemia Status: Chronic (4) Acute generalized abdominal pain: Code(s): R10.84 - Generalized abdominal pain Status: Acute (5) Gastroenteritis: Code(s): K52.9 - Noninfective gastroenteritis and colitis, unspecified Status: Acute (6) GERD (gastroesophageal reflux disease): Qualifiers: Esophagitis presence: esophagitis presence not specified Qualified Code(s): K21.9 - Gastro-esophageal reflux disease without esophagitis Code(s): K21.9 - Gastro-esophageal reflux disease without esophagitis Status: Chronic (7) Hypomagnesemia: Code(s): E83.42 - Hypomagnesemia Status: Acute DS: Summary Hospital Course Reason for hospitalization: Dehydration/hyperglycemia/hypertriglyceridemia/gastroenteritis/hypo magnesium Hospital Course: Admission: This is pleasant 49 old female patient with past medical history of Familial Chylomicronemia Syndrome, gastroparesis, anxiety, chronic hypertriglyceridemia secondary to her of CS, GERD, hypothyroidism, Jade's, diabetes mellitus, chronic pancreatitis and hyperlipidemia who presented to the emergency room this evening with complaints of abdominal pain with nausea/vomiting/diarrhea that has worsened over the course of the past week. Patient denies any fevers, medication changes, recent travel or any known illness exposure. Her pain is primarily across the left upper quadrant, epigastric region and into the right upper quadrant. She has not been able to identify any alleviating or exacerbating factors. Patient states she wears her CGM and that her glucose has been running steadily in the 300s. Patient states she is followed by Dr. Kaminski for pheresis treatment of her Triglycerides secondary to her FCS. In the ED: EKG showing sinus tachycardia 111 beats per minute. Her metabolic panel was significant initially for glucose of 516 otherwise unremarkable. CBC is unremarkable. Patient's coags and D-dimer are normal. Urinalysis negative. A1c was measured to be 12.7. Troponin was normal. Her triglycerides are elevated at 709 her range of hypertriglyceridemia ranges from the 300s all the way up to greater than 2000. Lipase is 207 and upon initial check of labs patient had an elevated beta hydroxybutyrate at 0.32 an initial elevated anion gap of 14. After IV hydration with a bolus of normal saline patient's gap closed to 9 in her glucose came down to 359. I suspect the patient's degree of dehydration had her on borderline DKA. Her magnesium of 1.5 was treated with 2 g of magnesium in the emergency room. Patient was treated for her pain and her nausea and is currently being admitted observation for continued hydration, further workup with labs and potential consult with Nephrology for her Hospital Course: Patient was admitted to the medical unit with a consult to Nephrology for close monitoring and potential need for plasmapheresis. Patient was continued on her home insulin and received IV fluids, antiemetics and advancing diet as tolerated. CT ABD with no acute findings, ABD pain likely secondary to her chronic pancreatitis. I continued to trend her triglycerides which where stable during her hospital course trending down to the 200's with no need for plasmapheresis since under 1000 as noted from nephrology. It was recommended she continue with her monthly Tryngolza therapy outpatient and with glucose control. Patient diet was advanced and she was able to tolerate advanced diet without difficulty. Patient was discharged to home and agreed with discharge plans. Status at Discharge Functional status at discharge: independent ambulation Overall status at discharge: patient is back to baseline Time Spent with Patient Time attestation: Total time spent providing and/or coordinating discharge services: Time spent: Greater than 30 minutes Exam Const: General: comfortable and no acute distress Other: Obese female patient lying supine at this time. HENMT: Face/Nose/Sinus: Normal nares present Mouth: Yes moist mucous membranes Eyes: General: appearance normal, both eyes and all related structures Neck: Neck: supple and no JVD Lymphatic: lymphadenopathy not noted Resp: Effort & Inspection: normal respiratory effort Auscultation: clear to auscultation bilaterally Cardio: Rate: tachycardic Rhythm: regular rhythm Heart sounds: no gallops, no murmurs and no rubs GI: Auscultation: normal bowel sounds Skin: General skin exam: normal color, no rashes or lesions noted, no erythema, No lesion and No rashes Lesions: no lesions noted Rashes: no rashes noted Wounds: no wounds Neuro: Speech: normal speech Motor exam (neuro): 5/5 motor strength present throughout and Normal motor muscle tone present throughout Sensory Exam: normal sensation Extrem: Other: Freely and equally moves all extremities well without deficit. Psych: Mental Status: mental status grossly normal Affect: normal affect DS: Data Data Completed and Pending Labs on day of discharge: Labs from last 24 hours 12/14/24 12/14/24 12/14/24 11:48 07:31 06:11 WBC RBC Hgb Hct MCV MCH MCHC RDW Plt Count MPV Sodium Potassium Chloride Carbon Dioxide Anion Gap BUN Creatinine Estim Creat Clear Calc Estimated GFR Glucose POC Capillary Glucose 271 H 221 H 250 H Calcium Magnesium Total Bilirubin AST ALT Alkaline Phosphatase Total Protein Albumin Triglycerides 12/14/24 12/13/24 12/13/24 05:32 20:24 16:37 WBC 7.3 RBC 4.07 L Hgb 11.8 L Hct 36.1 L MCV 88.7 MCH 29.0 MCHC 32.7 RDW 14.2 Plt Count 167 MPV 9.1 Sodium 134 L Potassium 3.7 Chloride 102 Carbon Dioxide 27 Anion Gap 5 BUN 6 L Creatinine 0.51 L Estim Creat Clear Calc 121 Estimated GFR > 60 Glucose 241 H POC Capillary Glucose 383 H 272 H Calcium 8.4 Magnesium 1.6 Total Bilirubin 0.3 AST 30 ALT 29 Alkaline Phosphatase 75 Total Protein 6.0 L Albumin 3.5 Triglycerides 233 H Imaging Radiologist's impression: Radiology Results: ITS Impressions Abdomen/Pelvis CT 12/11/24 23:00 IMPRESSION: Mural thickening within the distal esophagus and proximal stomach for which a gastroenteritis is suspected. Fatty infiltration of an enlarged liver. Discharge Plan Discharge Attending physician on discharge: Justen Wilson Consulting providers: Betty Sweet; Lino Lowry; Elmer Bullard; Ligia Dowd; Baron Bowers; Eli Kaminski; Vaishali Green Discharging Clinician: Betty Sweet Anticipated Discharge Date/Time: 12/14/24 14:50 Patient Disposition: Home Activity: may shower Diet: as tolerated and diabetic Discharge Instructions: 1). Pure Hyperglyceridemia * Continue with monthly Tryngozla * Follow-up with your plant care worker outpatient * Your levels at discharge were at 233 no indication for plasmapheresis since under a 1000 2). Gastroenteritis * Zofran has prescribed for any nausea take as needed * He also prescribed pantoprazole and Carafate Quervain can be taken before meals 3). Chronic pancreatitis * Advance diet as tolerated * I have prescribed oral pain medication needed * I have also prescribed Zofran take as needed for nausea 4). Diabetes * Continue insulin pump as directed * Monitor glucose levels closely * Recommend diabetic diet How can you care for yourself at home? ? Keep track of any new symptoms or changes in your symptoms. ? Rest until you feel better. ? Be safe with medicines. Take your medicines exactly as prescribed. Call your doctor if you think you are having a problem with your medicine. ? Do not drive after taking a prescription pain medicine. ? Ensure to follow-up with primary care physician as indicated and provide updated medication list provided to you at discharge. When should you call for help? Call 911 anytime you think you may need emergency care. For example, call if: ? You passed out (lost consciousness). Call your doctor now or seek immediate medical care if: ? You have new symptoms like fever, difficulty breathing, Chest pain, vomiting, or rash. ? You have new or different pain. ? You are confused and are having trouble thinking clearly. ? Your symptoms are getting worse. Watch closely for changes in your health, and be sure to contact your doctor if: ? You do not get better as expected. Patient Instructions: Antibiotic Form, Low Fat Diet (DC), Gastroenteritis (DC), Managing Diabetes During Sick Days (DC), Acute Nausea and Vomiting (DC), Diabetic Hyperglycemia (DC), Type 2 Diabetes in the Older Adult (DC), Diabetes and Exercise (DC) Patient Language: Lao Stand Alone Forms: General Discharge Information Follow-up/Referrals: Jose Zuniga APRN [Primary Care Provider, Internal Medicine] - 3 Weeks Discharge Medications: New hydrocodone-acetaminophen 5-325 mg Tablet 1 tablet PO Q4H PRN (Reason: Pain Rated 4-6) Qty: 20 0RF magnesium oxide 400 mg (241.3 mg magnesium) Tablet 400 mg PO BID Qty: 60 0RF sucralfate 100 mg/mL suspension 1 g PO TIDWMEAL Qty: 1000 0RF Continued metformin 500 mg tablet 1,000 mg PO BID Qty: 180 1RF Rx Instructions: with morning & evening meals Tryngolza 80 mg/0.8 mL auto-injector 80 mg subcut MONTHLY levothyroxine 200 mcg tablet 200 mcg PO DAILY Qty: 90 0RF pantoprazole [Protonix] 40 mg tablet,delayed release (DR/EC) 40 mg PO BID Qty: 30 0RF metoclopramide HCl 5 mg tablet 5 mg PO TIDWMEAL 30 Days Qty: 90 11RF aspirin 81 mg Tablet,Delayed Release (Dr/Ec) 81 mg PO QAM Qty: 30 0RF citalopram 40 mg tablet 40 mg PO HS Rx Instructions: TAKE 1 TABLET BY MOUTH EVERY DAY bupropion HCl 150 mg tablet sustained-release 12 hr 150 mg PO HS acetaminophen 500 mg tablet 1,000 mg PO TID PRN (Reason: qasim) 7 Days Qty: 42 0RF ibuprofen 800 mg tablet 800 mg PO TID PRN (Reason: pain) 7 Days Qty: 21 0RF ondansetron 4 mg tablet,disintegrating 4 mg PO Q8H PRN (Reason: nausea and vomiting) Qty: 30 0RF metoprolol succinate 25 mg tablet extended release 24 hr 12.5 mg PO DAILY lorazepam 1 mg tablet 1 mg PO QHS Brilinta 90 mg tablet 90 mg PO BID Qty: 180 0RF atorvastatin 80 mg tablet 80 mg PO HS Qty: 90 3RF insulin lispro [Humalog U-100 Insulin] 100 unit/mL solution 1 sliding scale dose subcut USEASDIRECTD MDD 60 Qty: 50 0RF fenofibrate 160 mg tablet 160 mg PO DAILY Qty: 90 2RF trazodone 100 mg tablet 200 mg PO HS Qty: 180 1RF Date of admission: 12/12/24 02:29 Primary Care Provider: Jose Zuniga Admitting Provider: Mak Ruby Attending physician on admission: Justen Wilson Condition: Stable Quality VTE Prophylaxis VTE prophylaxis: pharmacologic ordered -Patient's previous records reviewed on admission -ER notes reviewed in detail on admission -discussed all findings and current treatment plan with patient/Family/POA -Consultations reviewed for recommendations -Patient's disposition for safe discharge discussed with case resolution specialist Dictation performed by Boond direct speech recognition software, therefore cotton header variants and typographical errors may occur. Hospitalist MIPS Heart Failure (Exclusion) Patient has history of Heart Transplant or Left Ventricular Assistive Device?: No IF YES, STOP HERE Heart Failure (Qualifier) Patient has current or prior documentation of LVEF less than or equal to 40%, or mod/servere depressed LVSF?: No IF NO, STOP HERE
--- NOTE | 2024-12-30 15:53 | PCCDE ---
12/30/24: DM Educator attempted courtesy follow up call - Message left including call back number.
== END 2024-12-14 16:11 | disposition home or self-care (01) ==
LOC: ANHED 12-12 03:12 → ANH3MEDSUR 12-12 07:42
PROVIDERS: Internal Medicine Nephrology; Nurse Practitioner Family; Student in an Organized Health Care Education/Training Program; Admitting Provider Family Medicine; Emergency Provider Physician Assistant; PCP Nurse Practitioner; Visit Provider General Practice
DX: E86.0 Dehydration (principal); E11.65 Type 2 diabetes mellitus with hyperglycemia; K52.9 Noninfective gastroenteritis and colitis, unspecified; E78.1 Pure hyperglyceridemia; E83.42 Hypomagnesemia; K86.1 Other chronic pancreatitis; N18.9 Chronic kidney disease, unspecified; F41.9 Anxiety disorder, unspecified; K21.9 Gastro-esophageal reflux disease without esophagitis; F17.210 Nicotine dependence, cigarettes, uncomplicated; E78.3 Hyperchylomicronemia; E06.3 Autoimmune thyroiditis; Z79.82 Long term (current) use of aspirin; Z79.4 Long term (current) use of insulin; Z96.41 Presence of insulin pump (external) (internal); E11.22 Type 2 diabetes mellitus with diabetic chronic kidney disease
CPT/HCPCS: 36415; 74177; 80048; 80053; 81003; 82010; 82948; 83036; 83690; 83735; 84100; 84478; 84484; 85025; 85027; 85380; 85610; 85730; 93005; 96365; 96366; 96375; 96376; 99285; A9270; G0378; J1171; J1650; J1815; J1885; J2270; J2405; J2470; J3475; J7030; J7120; Q9967

== ENCOUNTER 2024-12-19 19:00 | Emergency (ER) | payer MEDICARE, SELFPAY ==
[2024-12-19] VITALS (7 sets, daily range): BP systolic 98–108; BP diastolic 59–89; PULSE 81–113; RESP 14–18; O2SAT 95–98
--- NOTE | ~2024-12-19 | XR_ITS ---
EXAMINATION: XR chest 2V 12/19/2024 19:45 INDICATION: Chest pain PROCEDURE: PA and lateral views of the chest COMPARISON: 04/02/2024 FINDINGS: The lungs are clear. The cardiomediastinal silhouette is within normal limits. There are no pleural effusions. There is no pneumothorax suspected. There are bilateral central lines, both tips in the condyle aspect of the SVC. IMPRESSION: 1: NO ACUTE CARDIOPULMONARY DISEASE. Reviewed, dictated and finalized at location O.
--- NOTE | 2024-12-19 19:02 | ECG_ITS ---
Test Date: 2024-12-19 19:25:23 Measurements Intervals [place] Rate: 102 P: 56 SD: 154 QRS: 73 QRSD: 81 T: 7 QT: 342 QTc: 447 Interpretive Statements SINUS TACHYCARDIA POSSIBLE LEFT ATRIAL ENLARGEMENT MINIMAL Q WAVES- INFERIOR LEADS BORDERLINE ST-T WAVE ABNORMALITY- INFERIOR LEADS BASELINE ARTIFACT- I, II, AVR, AVL, AVF, V4-V6 BORDERLINE ECG Compared to ECG 12/13/2024 11:42:41 HEART RATE HAS INCREASED Electronically Signed On 12-19-2024 20:21:29 CDT by Baron Bowers D.O.
--- OUTSIDE RECORDS SUMMARY | 2024-12-19 19:03 | XMS_ITS | Encounter Summary ---
Author Organization [facility] Address 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 Gender Identity Not on file [...] [facility] Heart and Vascular - [facility] [address] [place] [address] Marlys Mayer MD [address] [place] [address] documented as of this encounter Visit Diagnoses Not on filedocumented in this encounter Additional Health Concerns Infection Onset Date Last Indicated Resolved Time R/O GI Pathogen 09/19/2023 09/19/2023 09/21/2023 7 :33 AM CDT documented as of this encounter Care Teams Nurse Licensed Practical Relationship Specialty Start Date End Date Guerrero Middleton PA-C PCP - General Physician Signaler 02/13/18 documented as of this encounter
--- OUTSIDE RECORDS SUMMARY | 2024-12-19 19:03 | XMS_ITS | Clinical Summary ---
Author Organization [facility] Address [address] [place] [address] Care Team Providers Care Marine Oiler Name Role Phone Mauri Jaime MD Primary Care Provider [phone] Guerrero Middleton PA Unavailable [phone] Allergies Active Allergy Reactions Criticality Noted Date [...] tablet TAKE 1 TABLET BY MOUTH EVERY MOLDER HELPER 022 Active fenofibrate (TRIGLIDE) 160 mg [...] on file Legal Sex Female 5:05 AM HEAD OF OPERATION AND LOGISTICS Gender Identity Not on file Sexual Orientation Not on file Obstetrics History Last Filed Vital Signs Vital Sign Reading Time Taken Comments Blood Pressure 101/62 06/05/2023 11:38 AM HEAD OF OPERATION AND LOGISTICS Pulse 76 06/05/2023 11:38 AM HEAD OF OPERATION AND LOGISTICS Temperature 36.4 C (97.5 F) 06/05/2023 10:35 AM HEAD OF OPERATION AND LOGISTICS Respiratory Rate 22 06/05/2023 11:38 AM HEAD OF OPERATION AND LOGISTICS Oxygen Saturation 94% 06/05/2023 11:38 AM HEAD OF OPERATION AND LOGISTICS Inhaled Oxygen Concentration - - Weight 81.6 kg (180 lb) 06/05/2023 8:58 AM HEAD OF OPERATION AND LOGISTICS Height 165.1 cm (5' 5) 06/05/2023 8:58 AM HEAD OF OPERATION AND LOGISTICS Body Mass Index 29.95 06/05/2023 8:58 AM HEAD OF OPERATION AND LOGISTICS Plan of Treatment Health Maintenance Due Date [...] 03/04/2021, Additional history exists Insurance [facility] [employer] Care Teams Marine Oiler Relationship Specialty Start Date End Date Mauri Jaime MD [address] [facility] [address] [place] [address] PCP - General Internal Medicine 05/28/23 Guerrero Middleton PA [address] [facility] [address] [place] [address] 05/28/23
--- OUTSIDE RECORDS SUMMARY | 2024-12-19 19:03 | XMS_ITS | Encounter Summary ---
Author Organization [facility] Address 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 Gender Identity Not on file Sexual [...] [facility] [address] [place] [address] Marlys Mayer MD [address] [place] [address] documented as of this encounter Visit Diagnoses Not on filedocumented in this encounter Additional Health Concerns Infection Onset Date Last Indicated Resolved Time R/O GI Pathogen 09/19/2023 09/19/2023 09/21/2023 7 :33 AM CDT documented as of this encounter Care Teams Snuff Grinder And Screener Relationship Specialty Start Date End Date Guerrero Middleton PA-C PCP - General Physician Quality System Manager 02/13/18 documented as of this encounter
--- OUTSIDE RECORDS SUMMARY | 2024-12-19 19:03 | XMS_ITS | Encounter Summary ---
Author Organization [facility] Address 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 Gender Identity Not on file Sexual Orientation Not on file Occupation Industry Job Start Date Job End Date Not on file Not on file Not on file Not on file documented as of this encounter Plan of Treatment Upcoming Encounters Date Type Department Care Team (Late st Contact Info) Description 01/18/2025 3:00 PM CDT Office Visit [facility] [address] [place] [address] Marlys Mayer MD [address] [place] [address] documented as of this encounter Visit Diagnoses Not on filedocumented in this encounter Additional Health Concerns Infection Onset Date Last Indicated Resolved Time R/O GI Pathogen 09/19/2023 09/19/2023 09/21/2023 7 :33 AM CDT documented as of this encounter Care Teams Groundman/Lineman Relationship Specialty Start Date End Date Guerrero Middleton PA-C PCP - General Physician Spray Pilot 02/13/18 documented as of this encounter
--- OUTSIDE RECORDS SUMMARY | 2024-12-19 19:03 | XMS_ITS | Encounter Summary ---
Author Organization [facility] Address 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 Gender Identity Not on file Sexual Orientation [...] Description 01/18/2025 3:00 PM CDT Office Visit [facility] Heart and Vascular - [address] [place] [address] Marlys Mayer MD [address] [place] [address] documented as of this encounter Visit Diagnoses Not on filedocumented in this encounter Additional Health Concerns Infection Onset Date Last Indicated Resolved Time R/O GI Pathogen 09/19/2023 09/19/2023 09/21/2023 7 :33 AM CDT documented as of this encounter Care Teams Cable Television Installer Relationship Specialty Start Date End Date Guerrero Middleton PA-C PCP - General Physician Rice Drier 02/13/18 documented as of this encounter
--- OUTSIDE RECORDS SUMMARY | 2024-12-19 19:03 | XMS_ITS | Encounter Summary ---
Author Organization [facility] Address 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 Gender Identity Not on file Sexual Orientation [...] 01/18/2025 3:00 PM CDT Office Visit [facility] - [facility] [address] [place] [address] Marlys Mayer MD [address] [place] [address] documented as of this encounter Visit Diagnoses Not on filedocumented in this encounter Additional Health Concerns Infection Onset Date Last Indicated Resolved Time R/O GI Pathogen 09/19/2023 09/19/2023 09/21/2023 7 :33 AM CDT documented as of this encounter Care Teams Cte Teacher Relationship Specialty Start Date End Date Guerrero Middleton PA-C PCP - General Physician Physics Teacher 02/13/18 documented as of this encounter
--- OUTSIDE RECORDS SUMMARY | 2024-12-19 19:03 | XMS_ITS | Encounter Summary ---
Author Organization [facility] Address 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 [address] [place] [address] Marlys Mayer MD [address] [place] [address] documented as of this encounter Visit Diagnoses Not on filedocumented in this encounter Additional Health Concerns Infection Onset Date Last Indicated Resolved Time R/O GI Pathogen 09/19/2023 09/19/2023 09/21/2023 7 :33 AM CDT documented as of this encounter Care Teams Travel Guide Relationship Specialty Start Date End Date Guerrero Middleton PA-C PCP - General Physician Document Advisor 02/13/18 documented as of this encounter
--- OUTSIDE RECORDS SUMMARY | 2024-12-19 19:03 | XMS_ITS | Clinical Summary ---
Author Organization [facility] Address [address] [address] Phone Care Team Providers Care Freight Car Inspector Name Role Phone Jose G Palmer MD Unavailable [phone] Guerrero Middleton Primary Care Provider Social History [...] to complete this topic Insurance Care Teams Freight Car Inspector Relationship Specialty Start Date End Date Guerrero Middleton PAC [address] [facility] [address] [place] [address] PCP - General Physician Printer Machine 12/10/16 Jose G Palmer MD Consulting Physician Gastroenterology 12/10/16
--- OUTSIDE RECORDS SUMMARY | 2024-12-19 19:03 | XMS_ITS | Encounter Summary ---
Author Organization [facility] Address [address] [place] [address] Care Team Providers Care Virtualization Architect Name Role Phone Guerrero Middleton PA-C Primary Care Provide r Reason for Visit * Reason Onset Date Comments OTHER 11/21/2021 Encounter Details Date Type Department Care Team (Late st Contact Info) Description 11/21/2021 Telephone [facility] Oncology [address] [place] [address] Nicole Rosas MD [address] 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 Gender Identity Not on file Sexual Orientation [...] [place] [facility] [address] [place] [address] Marlys Mayer MD [address] [place] [address] documented as of this encounter Visit Diagnoses Not on filedocumented in this encounter Additional Health Concerns Infection Onset Date Last Indicated Resolved Time R/O GI Pathogen 09/19/2023 09/19/2023 09/21/2023 7 :33 AM CDT documented as of this encounter Care Teams Virtualization Architect Relationship Specialty Start Date End Date Guerrero Middleton PA-C PCP - General Physician Director Of Teacher Education 02/13/18 documented as of this encounter
--- OUTSIDE RECORDS SUMMARY | 2024-12-19 19:03 | XMS_ITS | Clinical Summary ---
Author Organization [facility] Address [address] [place] [address] Phone Care Team Providers Care Certified Nurse Midwife Name Role Phone Guerrero Middleton PA-C Primary [...] 48h post LHC 4 Active Blood-Glucose Sensor ([employer] G7 Sensor) Device 4 Active buPROPion HCL [...] be different from the original. 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 Gender Identity Not on file Sexual [...] [place] [facility] [address] [place] [address] Marlys Mayer MD [address] [place] [address] Health Maintenance Due Date Last Done Comments [...] history exists Medical Devices Implanted Type Area Maintenance Team Member Device Identifier Shelf Expiration Date Model / Serial / Lot Cath Hemodlys Glidespath 23cm [id number] Implanted:Qty : 1 on 04/10/2018 by Kayla Sheffield MD Catheter CR BARD- [employer] [id number] 08/27/2019 [id number] / / [id number] Description:14.5fr x 23cm; R IJ Port-10/29/2018 Implanted:Qty : 2 on 10/29/2018 by Laverne Willoughby MD Explanted:Qty : 1 on 02/18/2019 by Michael Powell MD Port Right: Chest Wall CR BARD- ACCESS SYS 07/28/2019 / / [id number] Description:two 9.6fr fower flow apheresis ports placed by Dr. Willoughby Port- 0 Implanted:Qty : 1 on 05/11/2019 by Alfa Forrest MD Port Left: Chest Wall CR BARD- ACCESS SYS 08/26/2020 / / [id number] Stent Synergy Xd 4.0x12mm Evrlms Elut [id number] - [id number] Implanted:Qty : 1 on 11/29/2023 by Miguel Lewis MD at [facility] Stent N/A: Coronary [place] [employer] [facility] GRISELDA [id number] 03/19/2024 [id number] / / [id number] Procedures Procedure Name Priority Date/Time Associated Diagnosis Comments LDL CHOLESTEROL, DIRECT Stat 09/19/2023 12:59 AM CDT HEMOGLOBIN A1C Routine 09/18/2023 10:18 PM CDT from Last 3 Months or Most Recently Relevant to Health Maintenance Results * LDL CHOLESTEROL, DIRECT (09/19/2023 12:59 AM CDT) LDL CHOLESTEROL, DIRECT 47 <100 mg/dL 09/19/2023 5:52 AM CDT [facility] Blood Venipuncture / Unknown 09/19/2023 12:59 AM CDT 09/19/2023 1:09 AM CDT Narrative [facility] - 09/19/2023 5:52 AM CDT [...] ORDERABLES Fin al Result Performing Organization Address [facility]/ZIP Co de Phone Number [facility] [employer] [facility]# [id number] [address] [place] [address] * (ABNORMAL) HEMOGLOBIN A1C (09/18/2023 10:18 PM CDT) HEMOGLOBIN A1C 9.7(H) <5.7 % 09/19/2023 10:59 AM CDT [employer] [facility] EST. AVG GLUCOSE, A1C 232 mg/dL 09/19/2023 10:59 AM CDT [facility] Blood Venipuncture / Unknown 09/18/2023 10:18 PM CDT 09/18/2023 10:26 PM CDT Narrative [facility] - 09/19/2023 10:59 AM CDT HGB A1C INTERPRETATION NORMAL: <5.7% PRE-DIABETES: 5.7 - 6.4% DIABETES: 6.5% OR GREATER Herlinda Mederos DO CHEMISTRY ORDERABLES Final Resul t Performing Organization Address [facility] de Phone Number [facility] [employer] [facility]# [id number] [address] [place] [address] from Last 3 Months or Most Recently Relevant to Health Maintenance Insurance RX AETNA Medicare Part D RX MEDRANO PLANS (INTERNAL) [facility] RX MED[employer]O PLANS (INTERNAL) [facility] AARP [id number] Advance Directives For more information, please contact: [phone] * Full Code (Latest Code Status on [...] 12:11 AM 01/02/2021 4:26 PM Care Teams Certified Nurse Midwife Relationship Specialty Start Date End Date Guerrero Middleton PA-C PCP - General Physician Raisin Washer 02/13/18
--- OUTSIDE RECORDS SUMMARY | 2024-12-19 19:03 | XMS_ITS | Encounter Summary ---
Author Organization [facility] Address [address] [place] [address] Care Team Providers Care Environmental Laboratory Technician Name Role Phone Guerrero Middleton PA-C Primary Care Provide r Encounter Details Date Type Department Care Team (Late st Contact Info) Description 10/26/[address] 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 [address] [place] [address] Marlys Mayer MD [address] [place] [address] documented as of this encounter Visit Diagnoses Not on filedocumented in this encounter Additional Health Concerns Infection Onset Date Last Indicated Resolved Time R/O GI Pathogen 09/19/2023 09/19/2023 09/21/2023 7 :33 AM CDT documented as of this encounter Care Teams Environmental Laboratory Technician Relationship Specialty Start Date End Date Guerrero Middleton PA-C PCP - General Physician Combination Machine Tool Setter 02/13/18 documented as of this encounter
--- OUTSIDE RECORDS SUMMARY | 2024-12-19 19:03 | XMS_ITS | Encounter Summary ---
Author Organization [facility] Address 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 Gender Identity Not on file Sexual [...] 01/18/2025 3:00 PM CDT Office Visit [facility] Heart and Vascular - [address] [place] [address] Marlys Mayer MD [address] [facility] [address] [place] [address] documented as of this encounter Visit Diagnoses Not on filedocumented in this encounter Additional Health Concerns Infection Onset Date Last Indicated Resolved Time R/O GI Pathogen 09/19/2023 09/19/2023 09/21/2023 7 :33 AM CDT documented as of this encounter Care Teams Rail Detector Car Operator Relationship Specialty Start Date End Date Guerrero Middleton PA-C PCP - General Physician Operator Assistant I Cementing 02/13/18 documented as of this encounter
--- NOTE | 2024-12-19 19:15 | PC.NURSE ---
Pt takes brillinta daily, Aspirin not needed.
--- NOTE | 2024-12-19 19:22 | ECG_ITS ---
Test Date: 2024-12-19 22:04:53 Measurements Intervals [place] Rate: 85 P: 45 CT: 162 QRS: 47 QRSD: 84 T: 5 QT: 376 QTc: 448 Interpretive Statements SINUS RHYTHM POSSIBLE LEFT ATRIAL ENLARGEMENT BORDERLINE T WAVE ABNORMALITY- INFERIOR LEADS BORDERLINE ECG Compared to ECG 12/19/2024 19:25:23 HEART RATE HAS DECREASED Electronically Signed On 12-20-2024 07:33:28 CDT by Baron Bowers D.O.
[2024-12-19 19:25] LABS: Hematocrit 41.0 % (37.0-47.0); Hemoglobin 13.7 g/dL (12.0-15.0); Immature Granulocyte Percent A 1.2 % (0-0.5); Lymphocytes Absolute Auto 2.23 K/mm3 (0.9-3.2); Mean Corpuscular HGB Conc 33.4 g/dl (32-36); Mean Corpuscular Hemoglobin 29.0 pg (26-34); Mean Corpuscular Volume 86.7 fl (80-100); Nucleated Red Blood Cells Absolute Auto 0.000 K/mm3 (0.0-0.012); Nucleated Red Blood Cells Perc 0.0 % (0.0-0.2); Platelet Count Result 294 k/mm3 (150-375); Red Blood Count 4.73 M/mm3 (4.2-5.4); White Blood Count 11.1 K/mm3 (4.5-10.0)
--- NOTE | 2024-12-19 19:26 | ED.CHESTPAIN ---
HPI - Chest Pain General Chief Complaint: Chest Pain Stated Complaint: chest pain Time Seen by Provider: 12/19/24 19:09 History of Present Illness HPI narrative: Patient is a 49-year-old female who presents to the emergency department this evening complaining of chest pain that started earlier today associated with tingling down her left arm in lightheadedness. Patient states that she has a history of coronary artery disease and has had 3 stents placed little over year ago. States that at that time pain was similar. There are no additional modifying, alleviating, or precipitating factors at this time. Related Data Home Medications ?Medication ?Instructions ?Recorded ?Confirmed ?Last Taken ?Type citalopram 40 mg tablet 40 mg PO HS 08/31/23 12/12/24 09/21/24 History bupropion HCl 150 mg tablet,12 hr 150 mg PO HS 10/09/23 12/12/24 09/21/24 History sustained-release metoprolol succinate 25 mg 12.5 mg PO DAILY 03/31/24 12/12/24 09/21/24 History tablet,extended release 24 hr olezarsen 80 mg/0.8 mL 80 mg subcut MONTHLY 09/16/24 12/12/24 11/27/24 History subcutaneous auto-injector (Tryngolza) lorazepam 1 mg tablet 1 mg PO QHS sleep 12/12/24 12/12/24 Unknown History Allergies Allergy/AdvReac Type Severity Reaction Status Date / Time adhesive tape Allergy Mild Rash Verified 12/19/24 19:10 [place] pepper (green pepper) Allergy Unknown Hives Verified 12/19/24 19:10 sucralose (From Splenda Allergy Migraine Verified 12/19/24 19:10 (sucralose)) Artificial Sweetners AdvReac Migraine Uncoded 12/19/24 19:10 Review of Systems Review of Systems: All systems are reviewed and are negative unless stated otherwise in the HPI. 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 Allergic rhinitis Insulin dependent diabetes mellitus Chronic pancreatitis (~09/02/23) Port-A-Cath in place Lipoprotein deficiency Hyperlipemia Headache Surgical History Surgical History History of wisdom tooth extraction History of tubal ligation History of partial hysterectomy History of endometrial ablation History of appendectomy History of loop electrical excision procedure (LEEP) History of exploratory laparotomy History of dilatation and curettage History of conization of cervix History of tonsillectomy Family History Family History Father Alcohol abuse Hypercholesteremia Hypertension Family history of alcoholism Family history of cardiovascular disease Diabetes mellitus Mother Hypercholesteremia Hypothyroid Cerebrovascular accident Family history of cardiovascular disease Diabetes mellitus Grandparent Skin cancer Colon cancer Heart disease Hypothyroid Cerebrovascular accident Sibling Autoimmune disorder Hypothyroid Kidney disorder Hypertension Diabetes mellitus Other Family history of kidney disease Social History Social History Social History: She smokes up to 1ppd since age 16yo. No alcohol or drug use. She has dog and a cat at home. Surrogate medical decision maker: José Miguel Jones, spouse. Code status: Full Smoking packs per day: 0.5 Smoking cigarettes per day: 10.0 Years smoked: 20 Smoking pack-years: 10.00 Smoking status: Current every day smoker Tobacco type: cigarettes Second hand tobacco smoke exposure: No Alcohol intake: never Drinks per week: 0 Substance use: never Substance use type: does not use Do You Feel Safe in your Home?: Yes Lack of Transportation: No Lack of Food: Never True Current Housing: I Have Housing Concerned About Future Housing: No Difficulty Paying Gas/Electric Bills: No Difficulty Paying for Meds: No Currently Unemployed: No Education: Associate Degree Difficulty w/ Childcare or Family Care: No Living arrangements: with family Occupation/Education: retired 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 HEENT: PERRL, no rhinorrhea, no post nasal drip, oropharynx clear. Neck: Trachea midline, no JVD, no lymphadenopathy. Cardiovascular: Regular rate and rhythm, no murmurs, rubs or gallops, no peripheral edema. Respiratory: Clear to auscultation bilaterally, no tachypnea, no wheezing, no rhonchi, no rubs, no respiratory distress. Abdomen: Soft, nontender, nondistended, no rebound, no guarding, no peritoneal signs. Musculoskeletal: No joint swelling or deformity, normal muscle tone. Skin: No rashes or petechia, no signs of infection. Psychiatric: Alert and oriented, normal behavior and judgment for situation. Neurological: Alert and oriented to person, place, and time. Follows all commands. No focal deficits, speech is clear and fluent. Course Vital Signs Vital signs: Vital Signs Pulse Rate 111 H 12/19/24 19:05 Respiratory Rate 18 12/19/24 19:05 Blood Pressure 108/89 12/19/24 19:05 Pulse Oximetry 98 12/19/24 19:05 Oxygen Delivery Room Air 12/19/24 19:05 Pulse Rate 113 H 12/19/24 20:17 Respiratory Rate 18 12/19/24 19:05 Blood Pressure 103/67 12/19/24 20:17 Pulse Oximetry 98 12/19/24 19:05 Oxygen Delivery Room Air 12/19/24 19:05 MDM - Chest Pain MDM Narrative Medical decision making narrative: The patient was evaluated by myself in the emergency department. History is obtained from patient who is an independent historian and physical exam was performed. External medical records were reviewed at this time. IV was established and pertinent tests were ordered. EKG was obtained which revealed sinus tachycardia rate of 102 beats per minute, no evidence of acute ischemia. EKG was independently interpreted by me and is currently pending official cardiology read. Laboratory results obtained revealing no acute process. Two sets of troponins were obtained and both noted to be negative. Imaging studies obtained included CXR which was independently interpreted by me revealing [finding], which is pending final radiology interpretation. Differential diagnosis considerations include acute coronary syndrome, infectious process such as pneumonia, acute viral syndrome, acute stress reaction. Comorbidities impacting this visit include history of CAD. I have evaluated and discussed social determinants of health with the patient that could potentially impact subsequent diagnosis and treatment plans. On repeat assessment of the patient, reevaluation revealed that the patient is doing well and is in no acute distress. Patient symptoms have improved since she arrived to our emergency department. Repeat vital signs were all reviewed and noted to be stable. Differential diagnosis and treatment plan were discussed with the patient at bedside. Patient agrees with discussion and after shared medical decision making agrees with discharge. All questions were answered to the patient's satisfaction. Patient will follow up with her PCP/Quality Review Trainer in 3-5 days. Patient was provided with strict return precautions and instructed to return to the emergency department if any new or worsening symptoms develop. The patient was discharged in stable condition. Lab Data 12/19/24 19:16 12/19/24 19:16 Labs: Lab Results 12/19/24 12/19/24 Range/Units 19:16 22:27 WBC 11.1 H (4.5-10.0) K/mm3 RBC 4.73 (4.2-5.4) M/mm3 Hgb 13.7 (12.0-15.0) g/dL Hct 41.0 (37.0-47.0) % MCV 86.7 (80-100) fl MCH 29.0 (26-34) pg MCHC 33.4 (32-36) g/dl RDW 14.0 (11.5-14.5) % Plt Count 294 D (150-375) k/mm3 MPV 9.1 (7.4-10.4) fl Immature Gran % (Auto) 1.2 H (0-0.5) % Neut % (Auto) 71.7 (45.5-73.1) % Lymph % (Auto) 20.2 (18.3-44.2) % [place] % (Auto) 5.9 (2.6-8.5) % Eos % (Auto) 0.5 (0-4.4) % Baso % (Auto) 0.5 (0.2-1.2) % Lymph # (Auto) 2.23 (0.9-3.2) K/mm3 [place] # (Auto) 0.7 H (0.1-0.6) K/mm3 Eos # (Auto) 0.1 (0-0.3) K/mm3 Baso # (Auto) 0.1 (0.0-0.1) K/mm3 Abs Immat Gran (auto) 0.13 H (0.00-0.031) K/mm3 Absolute Neuts (auto) 7.9 H (1.3-6.7) K/mm3 Absolute Nucleated RBC 0.000 (0.0-0.012) K/mm3 Nucleated RBC % 0.0 (0.0-0.2) % PT 13.0 (11.1-14.7) Seconds INR 1.0 APTT 29.9 (22.3-36.8) Seconds Sodium 132 L (137-145) mmol/L Potassium 4.2 (3.4-5.0) mmol/L Chloride 97 L (98-107) mmol/L Carbon Dioxide 22 (22-30) mmol/L Anion Gap 13 H (4-12) mmol/L BUN 18 H D (7-17) mg/dL Creatinine 0.75 (0.7-1.0) mg/dL Estim Creat Clear Calc 78 ml/min Estimated GFR > 60 (59 - ) Glucose 485 H (65-110) mg/dL Calcium 9.3 (8.4-10.2) mg/dL Magnesium 1.5 L (1.6-2.3) mg/dL Total Bilirubin 0.4 (0.2-1.3) mg/dL AST 40 H (14-36) U/L ALT 36 H (6-35) U/L Alkaline Phosphatase 97 (38-126) U/L Troponin I < 0.012 < 0.012 (0.000-0.034) ng/mL Total Protein 7.3 (6.3-8.2) g/dL Albumin 4.4 (3.5-5.1) g/dL Lipase 143 (23-300) U/L Discharge Plan Discharge Clinical Impression: Chest pain Patient Disposition: Home Condition: Improved Instructions: Antibiotic Form, Chest Pain (ED) Additional Instructions: Please follow-up with your family doctor/anesthesiology crna within the next 3-5 days. Return to the ED if any new or worsening symptoms develop. Patient Language: Faroese Prescriptions: No Action metformin 500 mg tablet 1,000 mg PO BID Qty: 180 1RF Rx Instructions: with morning & evening meals Tryngolza 80 mg/0.8 mL auto-injector 80 mg subcut MONTHLY levothyroxine 200 mcg tablet 200 mcg PO DAILY Qty: 90 0RF pantoprazole [Protonix] 40 mg tablet,delayed release (DR/EC) 40 mg PO BID Qty: 30 0RF metoclopramide HCl 5 mg tablet 5 mg PO TIDWMEAL 30 Days Qty: 90 11RF aspirin 81 mg Tablet,Delayed Release (Dr/Ec) 81 mg PO QAM Qty: 30 0RF citalopram 40 mg tablet 40 mg PO HS Rx Instructions: TAKE 1 TABLET BY MOUTH EVERY DAY bupropion HCl 150 mg tablet sustained-release 12 hr 150 mg PO HS acetaminophen 500 mg tablet 1,000 mg PO TID PRN (Reason: qasim) 7 Days Qty: 42 0RF ibuprofen 800 mg tablet 800 mg PO TID PRN (Reason: pain) 7 Days Qty: 21 0RF ondansetron 4 mg tablet,disintegrating 4 mg PO Q8H PRN (Reason: nausea and vomiting) Qty: 30 0RF metoprolol succinate 25 mg tablet extended release 24 hr 12.5 mg PO DAILY lorazepam 1 mg tablet 1 mg PO QHS hydrocodone-acetaminophen 5-325 mg Tablet 1 tablet PO Q4H PRN (Reason: Pain Rated 4-6) Qty: 20 0RF magnesium oxide 400 mg (241.3 mg magnesium) Tablet 400 mg PO BID Qty: 60 0RF sucralfate 100 mg/mL suspension 1 g PO TIDWMEAL Qty: 1000 0RF Brilinta 90 mg tablet 90 mg PO BID Qty: 180 0RF atorvastatin 80 mg tablet 80 mg PO HS Qty: 90 3RF insulin lispro [Humalog U-100 Insulin] 100 unit/mL solution 1 sliding scale dose subcut USEASDIRECTD MDD 60 Qty: 50 0RF fenofibrate 160 mg tablet 160 mg PO DAILY Qty: 90 2RF trazodone 100 mg tablet 200 mg PO HS Qty: 180 1RF Follow-up/Referrals: Jose Zuniga APRN [Primary Care Provider, Internal Medicine] - 3 Days Time of Disposition: 23:09
[2024-12-19 19:36] LABS: INR 1.0; Prothrombin Time 13.0 Seconds (11.1-14.7)
[2024-12-19 19:37] LABS: Alanine Aminotransferase 36 U/L (6-35); Albumin Level 4.4 g/dL (3.5-5.1); Alkaline Phosphatase 97 U/L (38-126); Anion Gap 13 mmol/L (4-12); Aspartate Amino Transferase 40 U/L (14-36); Bilirubin,Total 0.4 mg/dL (0.2-1.3); Blood Urea Nitrogen 18 mg/dL (7-17); Calcium 9.3 mg/dL (8.4-10.2); Carbon Dioxide 22 mmol/L (22-30); Chloride 97 mmol/L (98-107); Estimated CRCL calculation 78 ml/min; Estimated Glomerular Filt Rate > 60; Glucose 485 mg/dL (65-110); Lipase 143 U/L (23-300); Magnesium 1.5 mg/dL (1.6-2.3); Partial Thromboplastin Time 29.9 Seconds (22.3-36.8); Potassium 4.2 mmol/L (3.4-5.0); Sodium 132 mmol/L (137-145); Total Protein 7.3 g/dL (6.3-8.2)
[2024-12-19 19:51] LABS: Troponin I < 0.012 ng/mL (0.000-0.034)
[2024-12-19] MEDS: MAGNESIUM SULF 1 GM/D5W 100 ML 1 GM/100 ML BAG IVPB (20:20)
[2024-12-19] MEDS: SODIUM CHLORIDE 0.9% IV 1,000 ML 999 ML IV CONT (20:20)
[2024-12-19] MEDS: ONDANSETRON INJ 4 MG/2 ML VIAL IV PUSH (20:21)
--- NOTE | 2024-12-19 22:00 | ECG_ITS ---
Test Date: 2024-12-19 19:11:52 Measurements Intervals [place] Rate: 108 P: 59 IL: 167 QRS: 73 QRSD: 80 T: 20 QT: 308 QTc: 414 Interpretive Statements SINUS TACHYCARDIA POSSIBLE LEFT ATRIAL ENLARGEMENT MINIMAL Q WAVES- INFERIOR LEADS NONSPECIFIC T-WAVE ABNORMALITY- INFERIOR LEADS BASELINE ARTIFACT- I, II, III, AVR, AVR, AVL, AVF, V1-V6 ABNORMAL ECG Compared to ECG 12/13/2024 11:42:41 HEART RATE HAS INCREASED Electronically Signed On 12-20-2024 15:14:42 CDT by Baron Bowers D.O.
[2024-12-19 22:54] LABS: Troponin I < 0.012 ng/mL (0.000-0.034)
== END 2024-12-19 23:31 | disposition home or self-care (01) ==
PROVIDERS: Emergency Medicine; Emergency Provider Emergency Medicine; PCP Nurse Practitioner
DX: I25.10 Atherosclerotic heart disease of native coronary artery without angina pectoris (principal); Z95.5 Presence of coronary angioplasty implant and graft; E11.43 Type 2 diabetes mellitus with diabetic autonomic (poly)neuropathy; K31.84 Gastroparesis; E28.2 Polycystic ovarian syndrome; E78.5 Hyperlipidemia, unspecified; E06.3 Autoimmune thyroiditis; E78.3 Hyperchylomicronemia; F41.9 Anxiety disorder, unspecified; Z90.711 Acquired absence of uterus with remaining cervical stump; F17.210 Nicotine dependence, cigarettes, uncomplicated; Z79.82 Long term (current) use of aspirin; Z79.84 Long term (current) use of oral hypoglycemic drugs; Z79.4 Long term (current) use of insulin; Z79.899 Other long term (current) drug therapy; Z79.02 Long term (current) use of antithrombotics/antiplatelets; R94.31 Abnormal electrocardiogram [ECG] [EKG]; R00.0 Tachycardia, unspecified
CPT/HCPCS: 36415; 71046; 80053; 83690; 83735; 84484; 85025; 85610; 85730; 93005; 96365; 96375; 99284; J2405; J3475; J7030

== ENCOUNTER 2025-01-06 10:03 | Outpatient (RCR) | payer MEDICARE, SELFPAY ==
[2024-10-27 13:51] VITALS: BP 124/76; PULSE 74; RESP 18; TEMP 36.4
[2024-10-27 13:59] VITALS: BP 124/76; PULSE 74; RESP 18; TEMP 36.4
[2024-11-24 14:20] VITALS: BP 115/68; PULSE 68; RESP 16; TEMP 36.6
[2025-01-06 10:30] VITALS: BP 124/69; PULSE 72; RESP 18; TEMP 36.8
[2025-01-06] MEDS: HEPARIN SODIUM, PORCINE 10,000 UNITS/10 ML VIAL 20000 UNITS (10:37)
== END 2025-01-25 23:59 | disposition home or self-care (01) ==
LOC: ANHVASCINF 10:03
PROVIDERS: PCP Nurse Practitioner; Visit Provider Nurse Practitioner
DX: Z45.2 Encounter for adjustment and management of vascular access device (principal)
CPT/HCPCS: 99212; G0463; J1644

== ENCOUNTER 2025-02-20 11:41 | Outpatient (CLI) | payer MEDICARE, SELFPAY ==
--- OUTSIDE RECORDS SUMMARY | 2025-02-20 11:43 | XMS_ITS | Encounter Summary ---
Author Organization [facility] Address 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 [facility] [address] [place] [address] documented as of this encounter Visit Diagnoses Not on filedocumented in this encounter Care Teams Paper Gluing Operator Relationship Specialty Start Date End Date Guerrero Middleton PA-C PCP - General Physician Instant Printer Operator 02/13/18 documented as of this encounter
--- OUTSIDE RECORDS SUMMARY | 2025-02-20 11:43 | XMS_ITS | Encounter Summary ---
Author Organization [facility] Address 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 Gender Identity Not on file Sexual [...] st Contact Info) Description 06/18/2025 10:15 AM PIANO MAKER Office Visit [facility] Heart and Vascular At [place] [address] [place] [address] Kali Varela MD [facility] [address] [facility] [address] [place] [address] documented as of this encounter Visit Diagnoses Not on filedocumented in this encounter Additional Health Concerns Infection Onset Date Last Indicated Resolved Time R/O GI Pathogen 09/19/2023 09/19/2023 09/21/2023 7 :33 AM CDT documented as of this encounter Care Teams Management Accountant Relationship Specialty Start Date End Date Guerrero Middleton PA-C PCP - General Physician Car Packer 02/13/18 documented as of this encounter
--- OUTSIDE RECORDS SUMMARY | 2025-02-20 11:43 | XMS_ITS | Clinical Summary ---
Author Organization [facility] Address [address] [address] Phone Care Team Providers Care Drilling Contractor Name Role Phone Jose G Palmer MD Unavailable [phone] Guerrero Middleton Primary Care Provider Social History [...] Screening 11/24/2020 Immunochemical Fecal Occult Blood 11/24/2020 Influenza Immunization (#1) 2024 03/04/2021 SARS-COV-2 Immunization ( season) 2024 03/04/2021, 07/20/2020, 06/28/2020 Respiratory Syncytial Virus (RSV) [...] to complete this topic Insurance Care Teams Drilling Contractor Relationship Specialty Start Date End Date Guerrero Middleton PAC [address] [place] [address] PCP - General Physician Head Of Commission Department 12/10/16 Jose G Palmer MD Consulting Physician Gastroenterology 12/10/16
--- OUTSIDE RECORDS SUMMARY | 2025-02-20 11:43 | XMS_ITS | Encounter Summary ---
Author Organization [facility] Address 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 Gender Identity Not on file Sexual Orientation [...] st Contact Info) Description 06/18/2025 10:15 AM LARGE ANIMAL VETERINARIAN Office Visit [facility] Heart and Vascular At [place] [address] [place] [address] Kali Varela MD [facility] [address] [facility] [address] [place] [address] documented as of this encounter Visit Diagnoses Not on filedocumented in this encounter Additional Health Concerns Infection Onset Date Last Indicated Resolved Time R/O GI Pathogen 09/19/2023 09/19/2023 09/21/2023 7 :33 AM CDT documented as of this encounter Care Teams Commutator Tester Relationship Specialty Start Date End Date Guerrero Middleton PA-C PCP - General Physician Bandoleer Packer 02/13/18 documented as of this encounter
--- OUTSIDE RECORDS SUMMARY | 2025-02-20 11:43 | XMS_ITS | Encounter Summary ---
Author Organization [facility] Address [address] [place] [address] Care Team Providers Care Tile Inspector Name Role Phone Guerrero Middleton PA-C Primary Care Provide r Encounter Details Date Type Department Care Team (Late st Contact Info) Description 03/14/2022 Telephone [facility] Donor Services [facility] [address] [place] [address] Phoenix Riddle MD [address] [facility] [place] [address] Social History Tobacco Use Types [...] file Legal Sex Female 6:07 AM AUDIO VISUAL EQUIPMENT RENTAL CLERK Gender Identity Not on file Sexual Orientation Not on file Occupation Industry Job Start Date Job End Date Not on file Not on file Not on file Not on file documented as of this encounter Plan of Treatment Upcoming Encounters Date Type Department Care Team (Late st Contact Info) Description 06/18/2025 10:15 AM AUDIO VISUAL EQUIPMENT RENTAL CLERK Office Visit [facility] At [facility] [address] [place] [address] Kali Varela MD [address] [facility] [address] [place] [address] documented as of this encounter Visit Diagnoses Not on filedocumented in this encounter Additional Health Concerns Infection Onset Date Last Indicated Resolved Time R/O GI Pathogen 09/19/2023 09/19/2023 09/21/2023 7 :33 AM CDT documented as of this encounter Care Teams Tile Inspector Relationship Specialty Start Date End Date Gurerero Middleton PA-C PCP - General Physician Office Messenger Helper 02/13/18 documented as of this encounter
--- OUTSIDE RECORDS SUMMARY | 2025-02-20 11:43 | XMS_ITS | Encounter Summary ---
Author Organization [facility] Address [address] [place] [address] Care Team Providers Care Backwinder Name Role Phone Guerrero Middleton PA-C Primary Care Provide r Encounter Details Date Type Department Care Team (Late st Contact Info) Description 11/30/2021 Telephone [facility] Donor Services [address] [address] Nicole Rosas MD [address] [place] [address] Social History Tobacco Use Types [...] on file Legal Sex Female 6:07 AM TOP LIFT COMPRESSOR Gender Identity Not on file Sexual Orientation Not on file Occupation Industry Job Start Date Job End Date Not on file Not on file Not on file Not on file documented as of this encounter Plan of Treatment Upcoming Encounters Date Type Department Care Team (Late st Contact Info) Description 06/18/2025 10:15 AM TOP LIFT COMPRESSOR Office Visit [facility] Heart and Vascular At [facility] [address] [place] [address] Kali Varela MD [address] [place] [address] documented as of this encounter Visit Diagnoses Not on filedocumented in this encounter Additional Health Concerns Infection Onset Date Last Indicated Resolved Time R/O GI Pathogen 09/19/2023 09/19/2023 09/21/2023 7 :33 AM CDT documented as of this encounter Care Teams Backwinder Relationship Specialty Start Date End Date Guerrero Middleton PA-C PCP - General Physician Netbackup Administrator 02/13/18 documented as of this encounter
--- OUTSIDE RECORDS SUMMARY | 2025-02-20 11:43 | XMS_ITS | Encounter Summary ---
Author Organization [facility] Address [address] [place] [address] Care Team Providers Care Wrapper Stemmer Hand Name Role Phone Guerrero Middleton PA-C Primary Care Provide r Reason for Visit * Reason Onset Date Comments OTHER 11/21/2021 Encounter Details Date Type Department Care Team (Late st Contact Info) Description 11/21/2021 Telephone [facility] Oncology [address] [place] [address] Nicole Rosas MD [address] [place] [address] OTHER Social History Tobacco Use [...] file Legal Sex Female 6:07 AM CLINICAL DATA RESEARCH Gender Identity Not on file Sexual Orientation Not on file Occupation Industry Job Start Date Job End Date Not on file Not on file Not on file Not on file documented as of this encounter Plan of Treatment Upcoming Encounters Date Type Department Care Team (Late st Contact Info) Description 06/18/2025 10:15 AM CLINICAL DATA RESEARCH Office Visit [facility] Heart and Vascular At [place] [address] [facility] [address] [place] [address] Kali Varela MD [facility] [address] [facility] [address] [place] [address] documented as of this encounter Visit Diagnoses Not on filedocumented in this encounter Additional Health Concerns Infection Onset Date Last Indicated Resolved Time R/O GI Pathogen 09/19/2023 09/19/2023 09/21/2023 7 :33 AM CDT documented as of this encounter Care Teams Wrapper Stemmer Hand Relationship Specialty Start Date End Date Guerrero Middleton PA-C PCP - General Physician Machine Tool Operator 02/13/18 documented as of this encounter
--- OUTSIDE RECORDS SUMMARY | 2025-02-20 11:43 | XMS_ITS | Encounter Summary ---
Author Organization [facility] Address [address] [place] [address] Care Team Providers Care Manager Fast Food Name Role Phone Guerrero Middleton PA-C Primary Care Provide r Reason for Visit * Reason Onset Date Comments petr rubin 09/13/2021 Encounter Details Date Type Department Care Team (Late st Contact Info) Description 09/13/2021 Telephone [facility] Donor Services [place] [address] [place] [address] [facility] Social History Tobacco Use Types [...] on file Legal Sex Female 6:07 AM SUPERVISORY CBP OFFICER Gender Identity Not on file Sexual [...] st Contact Info) Description 06/18/2025 10:15 AM SUPERVISORY CBP OFFICER Office Visit [facility] Heart and Vascular [place] [address] [place] [address] Kali Varela MD [facility] [address] [facility] [address] [place] [address] documented as of this encounter Visit Diagnoses Not on filedocumented in this encounter Additional Health Concerns Infection Onset Date Last Indicated Resolved Time R/O GI Pathogen 09/19/2023 09/19/2023 09/21/2023 7 :33 AM CDT documented as of this encounter Care Teams Manager Fast Food Relationship Specialty Start Date End Date Guerrero Middleton PA-C PCP - General Physician Center Director Lead Teacher 02/13/18 documented as of this encounter
--- OUTSIDE RECORDS SUMMARY | 2025-02-20 11:43 | XMS_ITS | Encounter Summary ---
Author Organization [facility] Address [address] [place] [address] Care Team Providers Care Mainframe Software Developer Name Role Phone Guerrero Middleton PA-C Primary Care Provide r Encounter Details Date Type Department Care Team (Late st Contact Info) Description 12/08/2021 Telephone [facility] Donor Services [facility] [address] [place] [address] Phoenix Riddle MD [address] [facility] [place] [address] Social History Tobacco Use Types [...] on file Legal Sex Female 6:07 AM ANODE BUILDER Gender Identity Not on file Sexual Orientation Not on file Occupation Industry Job Start Date Job End Date Not on file Not on file Not on file Not on file documented as of this encounter Plan of Treatment Upcoming Encounters Date Type Department Care Team (Late st Contact Info) Description 06/18/2025 10:15 AM ANODE BUILDER Office [facility] Heart and Vascular At [facility] [address] [place] [address] Kali Varela MD [address] [facility] [address] [place] [address] documented as of this encounter Visit Diagnoses Not on filedocumented in this encounter Additional Health Concerns Infection Onset Date Last Indicated Resolved Time R/O GI Pathogen 09/19/2023 09/19/2023 09/21/2023 7 :33 AM CDT documented as of this encounter Care Teams Mainframe Software Developer Relationship Specialty Start Date End Date Guerrero Middleton PA-C PCP - General Physician Income Tax Auditor 02/13/18 documented as of this encounter
--- OUTSIDE RECORDS SUMMARY | 2025-02-20 11:43 | XMS_ITS | Encounter Summary ---
Author Organization [facility] Address [address] [place] [address] Care Team Providers Care Records Administrator Name Role Phone Guerrero Middleton PA-C Primary Care Provide r Reason for Visit * Reason Onset Date Comments Bard Port flush 11/16/2021 Attempted to patel ch pt due to needing bard port flushes Encounter Details Date Type Department Care Team (Late st Contact Info) Description 11/16/2021 Telephone [facility] Oncology [address] [place] [address] Nicole Rosas MD [address] [place] [address] [place] Port flush (Attempted to [...] on file Legal Sex Female 6:07 AM PUSHER OPERATOR Gender Identity Not on file Sexual Orientation Not on file Occupation Industry Job Start Date Job End Date Not on file Not on file Not on file Not on file documented as of this encounter Plan of Treatment Upcoming Encounters Date Type Department Care Team (Late st Contact Info) Description 06/18/2025 10:15 AM PUSHER OPERATOR [facility] Heart [facility] Vascular [place] [address] [place] [address] Kali Varela MD [facility] [address] [facility] [address] [place] [address] documented as of this encounter Visit Diagnoses Not on filedocumented in this encounter Additional Health Concerns Infection Onset Date Last Indicated Resolved Time R/O GI Pathogen 09/19/2023 09/19/2023 09/21/2023 7 :33 AM CDT documented as of this encounter Care Teams Records Administrator Relationship Specialty Start Date End Date Guerrero Middleton PA-C PCP - General Physician Processes Chemical Design Engineer 02/13/18 documented as of this encounter
--- OUTSIDE RECORDS SUMMARY | 2025-02-20 11:43 | XMS_ITS | Clinical Summary ---
Author Organization [facility] Address [address] [place] [address] Phone Care Team Providers Care Personal Consultant Name Role Phone Guerrero Middleton PA-C [...] BY MOUTH EVERY DAY 90 Tablet 1 11/02/19 21 Active fenofibrate (LOFIBRA) 160 mg Tablet TAKE 1 TABLET BY MOUTH EVERY DAY 90 Tablet 05/01/19 22 Active pantoprazole (PROTONIX) 40 mg Tablet, Delayed Release (E.C.) Take 40 mg by mouth daily. Active atorvastatin (LIPITOR) 40 mg tablet Take 80 mg by mouth daily. Active aspirin (ECOTRIN EC) 81 mg Tablet, Delayed Release (E.C.) Take 81 mg by mouth daily. Active ondansetron (ZOFRAN ODT) 4 mg Tablet, Rapid Dissolve Take 1 Tablet (4 mg) by mouth every 6 hours as needed for Nausea/Emesis. 30 Tablet 09/26/19 24 Active lipase-protease- amylase DR (Creon) 36,000-114,000-1 80,000 unit capsule Take 2 Capsules by mouth 3 times daily with meals. 180 Capsule 09/26/19 24 Active metoprolol succinate (TOPROL XL) 25 mg Extended Release 24 hour tablet Take 0.5 Tablets (12.5 mg) by mouth daily. 15 Tablet 09/27/19 24 Active oxyCODONE (ROXICODONE) 10 mg tabletIndication s:Acute on chronic pancreatitis (CMS/HCC),Other acute pancreatitis without infection or necrosis Take 1 Tablet (10 mg) by mouth every 6 hours. Max Daily Amount: 40 mg 20 Tablet 09/26/19 24 Active losartan potassium (LOSARTAN ORAL) Take by mouth. Active buspirone HCl (BUSPAR ORAL) Take by mouth. A ctive LORazepam (ATIVAN) 1 mg tablet Take 1 mg by mouth every 6 hours as needed for Anxiety. Active metFORMIN (GLUCOPHAGE) 1,000 mg tablet Take 1 Tablet (1,000 mg) by mouth 2 times daily with meals. HOLD for 48h post LHC 12/02/19 24 Active Blood-Glucose Sensor (Soundvamp G7 Sensor) Device 05/13/19 24 Active buPROPion HCL (WELLBUTRIN SR) 150 mg Sustained Release 12 hour tablet Take 1 Tablet by mouth daily. 11/13/19 24 Active NovoLOG U-100 Insulin aspart 100 unit/mL vial INFUSE 100 UNITS VIA CONTINUOUS SUBCUTANEOUS INFUSION DAILY WITH A MAX DAILY DOSE OF 100 UNITS Active BD Insulin Syringe Ultra-Fine 0.3 mL 31 gauge x 5/16 Syringe 12/24/19 24 Active levothyroxine 200 mcg tablet Take 1 Tablet by mouth daily. 11/13/19 24 Active docusate sodium (COLACE) 100 mg capsule TAKE 1 CAPSULE BY MOUTH EVERY 12 HOURS NEEDED FOR CONSTIPATION 04/08/20 24 Active metoclopramide HCl (REGLAN) 5 mg tablet take 1 tablet by mouth every 6 hours as needed for nausea and vomiting 04/08/20 24 Active Tryngolza 80 mg/0.8 mL Auto-Injector 07/11/19 25 Active nitroglycerin (NITROSTAT) 0.4 mg Tablet, Sublingual Place 1 Tablet (0.4 mg) under tongue every 5 minutes as needed for Chest Pain. 30 Tablet 1 01/19/20 25 Active clopidogreL (PLAVIX) 75 mg Tablet Take 1 Tablet (75 mg) by mouth daily. 100 Tablet 3 01/19/20 25 Active evolocumab (Repatha SureClick) 140 mg/mL Pen Injector Inject 1 mL (140 mg) by subcutaneous injection every 2 weeks. 2 mL 11 01/23/20 25 Active evolocumab (Repatha SureClick) 140 mg/mL Pen Injector Inject 1 mL (140 mg) by subcutaneous injection every 2 weeks. 2 mL 01/19/20 025 Discontin ued(Reord er) Active Problems Patient Care Coordination No te Formatting of this note migh t be different from the original. Marlys Mayer MD--Research Program Assistant ([facility] @ ) Problem [...] Encounters Date Type Department Care Team Description 02/05/2025 Abstract [facility] - [address] [place] [address] Marlys Mayer MD 01/28/2025 Results Follow-Up [facility] At [address] [place] [address] Angie Blackburn RN NM MYOCARD PERF IMAG SPECT MULT 01/27/2025 8:58 AM CDT - 01/27/2025 11:59 PM CDT Hospital Encounter [facility] Nuclear Medicine [facility] [place] [id number] Marlys Mayer MD Discharge Disposition: Home or Self Care 01/27/2025 8:58 AM CDT - 01/27/2025 11:59 PM CDT Hospital Encounter [facility] Nuclear Medicine [address] [place] [address] Marlys Mayer MD Discharge Disposition: Home or Self Care 01/22/2025 Refill [facility] At [address] [place] [address] Marlys Mayer MD 01/18/2025 3:00 PM CDT Office Visit [facility] - [facility] [id number] [facility] [address] [place] [address] Marlys Mayer MD Chylomicronemia syndrome (Primary Dx); Coronary artery disease involving [place] coronary artery of [place] heart without angina pectoris; Mixed hyperlipidemia; Type 1 diabetes mellitus without complication (CMS/HCC); Chronic recurrent pancreatitis (CMS/HCC); Type 1 diabetes mellitus without complications (CMS/HCC) 12/30/2024 External Device Data STL ABSTRACTION Provider, Abstract 12/21/2024 Telephone [facility] - [facility] [address] [id number] [facility] [address] [place] [address] Marlys Mayer MD Medication Authorization from Last 3 Months Immunizations Immunization Administration [...] on file Legal Sex Female 6:07 AM RN DIALYSIS Gender Identity Not on file Sexual Orientation Not on file Occupation Industry Job Start Date Job End Date Not on file Not on file Not on file Not on file Last Filed Vital Signs Vital Sign Reading Time Taken Comments Blood Pressure 111/64 01/18/2025 2:32 PM CDT Pulse 100 01/18/2025 2:32 PM CDT Temperature 36.5 C (97.7 F) 11/29/2023 10:58 AM CDT Respiratory Rate 21 11/29/2023 6:15 PM CDT Oxygen Saturation 100% 01/18/2025 2:32 PM CDT Inhaled Oxygen Concentration - - Weight 81.6 kg (180 lb) 01/18/2025 2:32 PM CDT Height 165.1 cm (5' 5) 01/18/2025 2:32 PM CDT Body Mass Index 29.95 01/18/2025 2:32 PM CDT Plan of Treatment Upcoming Encounters Date Type Department Care Team (Late st Contact Info) Description 06/18/2025 10:15 AM RN DIALYSIS Office Visit [facility] Vascular At [facility] [address] [address] [place] [address] Kali Varela MD [facility] [address] [facility] [address] [place] [address] Health Maintenance Due Date Last Done Comments [...] 11/24/2020 DIABETES ANNUAL FOOT EXAM 05/04/2021 05/04/2020 DIABETES HBA1C Q 6 MONTHS 03/20/20242023, 08/24/2021, 07/12/2020, Additional history exists LDL CHOLESTEROL ANNUAL 09/18/2024 4, 08/25/2021, 02/01/2019, Additional history exists INFLUENZA VACCINE (#1) 2024 0, 02/02/2019, 02/12/2018, Additional history exists COVID-19 Vaccine (2 - 2024-2 6 season) 2024 03/08/2023 Medical Devices Implanted Type Area Direct Chill Caster Device Identifier Shelf Expiration Date Model / Serial / Lot Cath Hemodlys Glidespath 23cm [id number] Implanted:Qty : 1 on 04/10/2018 by Kayla Sheffield MD Catheter [employer] [id number] 08/27/2019 [id number] / / [id number] Description:14.5fr x 23cm; R IJ Port-10/29/2018 Implanted:Qty : 2 on 10/29/2018 by Laverne Willoughby MD Explanted:Qty : 1 on 02/18/2019 by Michael Powell MD Port Right: Chest Wall CR BARD- ACCESS SYS 07/28/2019 / / [id number] Description:two 9.6fr fower flow apheresis ports placed by Dr. Willoughby Port- 0 Implanted:Qty : 1 on 05/11/2019 by Alfa Forrest MD Port Left: Chest Wall CR [employer]ARD[employer] ACCESS SYS 08/26/2020 / / [id number] Stent Synergy Xd 4.0x12mm Evrlms Elut [id number] - [id number] Implanted:Qty : 1 on 11/29/2023 by Miguel Lewis MD at [facility] Stent N/A: Coronary [email or web address]pro GRISELDA [id number] 03/19/2024 [id number] / / [id number] Procedures Procedure Name Priority Date/Time Associated Diagnosis Comments NM MYOCARD PERF IMAG SPECT MULT Routine 01/27/2025 12:50 PM CDT Chylomicronemia syndrome Mixed hyperlipidemia Coronary artery disease involving sh[place] coronary artery of sh[place] heart without angina pectoris Type 1 diabetes mellitus without complications Chronic recurrent pancreatitis (CMS/HCC) HM EJECTION FRACTION Routine 01/27/2025 12:50 PM CDT NM PHARMACOLOGICAL STRESS TEST Routine 01/27/2025 11:36 AM CDT Coronary artery disease involving sh[place] coronary artery of [place] heart without angina pectoris Chylomicronemia syndrome Mixed hyperlipidemia Chronic recurrent pancreatitis (CMS/HCC) LDL CHOLESTEROL, DIRECT Stat 09/19/19 12:59 AM CDT HEMOGLOBIN A1C Routine 09/18/2023 10:18 PM CDT from Last 3 Months or Most Recently Relevant to Health Maintenance Results * NM MYOCARD PERF IMAG SPECT MULT (01/27/2025 12:50 PM CDT) 01/27/2025 12:5 1 PM CDT Impressions INTERFACE SYSTEM - 01/27/2025 5:05 PM CDT IMPRESSION: 1) Stress EKG response was nondiagnostic for ischemia due to marked baseline artifact during stress. 2) The overall quality of the study is good. 3) The myocardial perfusion scan is normal 4) Left ventricular size is normal with normal left ventricular systolic function, and a calculated ejection fraction of 66%. 5) No previous study was available for comparison. Recommendations: Clinical correlation is recommended. Narrative INTERFACE SYSTEM - 01/27/2025 5:05 PM CDT Procedure Type: One Day Myoview Regadenoson Pharmacologic Stress Test Date of Procedure: 01/27/2025 12:50 PM Clinical Indication: This 49 years old Female with a clinical history of CAD status post PCI is undergoing an evaluation for coronary artery disease via a pharmacologic stress test due to chest discomfort. Height: 5 feet 5 inches; Weight: 180 pounds Medications:See List Pharmacologic Stress Procedure: The patient performed a pharmacologic stress test using 0.4 mg regadenoson IVP over 10 seconds with low level exercise. The heart rate was 82 bpm at baseline and increased to 120 bpm. The blood pressure was 121/89 mmHg at baseline and 101/81 mmHg during infusion, demonstrating a normal response to regadenoson. The patient felt mild dyspnea during the procedure. Nuclear Imaging Protocol: Myocardial perfusion imaging was performed at rest approximately 30 minutes following the intravenous injection of 6.7 mCi TC99m Myoview. Immediately after regadenoson infusion, the patient was injected intravenously with 21.4 mCi TC99m Myoview. Gated post - stress tomographic imaging was performed approximately 60 minutes later in same manner. SPECT reconstruction was performed in the short, vertical long and horizontal axis views in both resting and gated image sets. Post-stress prone images were obtained in the short, vertical long, and horizontal axis views. EKG: The baseline electrocardiogram showed sinus rhythm. The electrocardiogram changes show a nondiagnostic response to regadenoson due to marked baseline artifact. Findings: The overall quality of the study is good. Rotating planar images reveal no motion artifact. The left ventricular size is normal. Post-stress SPECT myocardial perfusion images reveals normal perfusion in all regions. The rest images reveal no reversibility. Gated SPECT imaging demonstrates normal wall motion in all regions, and a calculated left ventricular ejection fraction estimated to be 66%. Procedure Note Haris Morel MD - 01/27/2025 Procedure Type: One Day Myoview Regadenoson Pharmacologic Stress Test Date of Procedure: 01/27/2025 12:50 PM Clinical Indication: This 49 years old Female with a clinical history of CAD status post PCI is undergoing an evaluation for coronary artery disease via a pharmacologic stress test due to chest discomfort. Height: 5 feet 5 inches; Weight: 180 pounds Medications:See List Pharmacologic Stress Procedure: The patient performed a pharmacologic stress test using 0.4 mg regadenoson IVP over 10 seconds with low level exercise. The heart rate was 82 bpm at baseline and increased to 120 bpm. The blood pressure was 121/89 mmHg at baseline and 101/81 mmHg during infusion, demonstrating a normal response to regadenoson. The patient felt mild dyspnea during the procedure. Nuclear Imaging Protocol: Myocardial perfusion imaging was performed at rest approximately 30 minutes following the intravenous injection of 6.7 mCi TC99m Myoview. Immediately after regadenoson infusion, the patient was injected intravenously with 21.4 mCi TC99m Myoview. Gated post - stress tomographic imaging was performed approximately 60 minutes later in same manner. SPECT reconstruction was performed in the short, vertical long and horizontal axis views in both resting and gated image sets. Post-stress prone images were obtained in the short, vertical long, and horizontal axis views. EKG: The baseline electrocardiogram showed sinus rhythm. The electrocardiogram changes show a nondiagnostic response to regadenoson due to marked baseline artifact. Findings: The overall quality of the study is good. Rotating planar images reveal no motion artifact. The left ventricular size is normal. Post-stress SPECT myocardial perfusion images reveals normal perfusion in all regions. The rest images reveal no reversibility. Gated SPECT imaging demonstrates normal wall motion in all regions, and a calculated left ventricular ejection fraction estimated to be 66%. IMPRESSION: 1) Stress EKG response was nondiagnostic for ischemia due to marked baseline artifact during stress. 2) The overall quality of the study is good. 3) The myocardial perfusion scan is normal 4) Left ventricular size is normal with normal left ventricular systolic function, and a calculated ejection fraction of 66%. 5) No previous study was available for comparison. Recommendations: Clinical correlation is recommended. Marlys Mayer MD NM ORDERABLES Final Result INTERFACE SYSTEM Refer to clinic/hospital department * (ABNORMAL) HM EJECTION FRACTION (01/27/2025 12:50 PM CDT) EJECTION FRACTION 66(A) 50 - 65 % Historical Provider HEALTH MAINTENANCE Final Res ult * NM PHARMACOLOGICAL STRESS TEST (01/27/2025 11:36 AM CDT) Narrative 01/27/2025 11:36 AM CDT Order information only. Exam was auto-finalized. Marlys RAMOS ORDERABLES Final Result * LDL CHOLESTEROL, DIRECT (09/19/2023 12:59 AM CDT) LDL CHOLESTEROL, DIRECT 47 <100 mg/dL 09/19/2023 5:52 AM CDT [facility] Blood Venipuncture / Unknown 09/19/2023 12:59 AM CDT 09/19/2023 1:09 AM CDT Narrative [facility] LABORATORY SERVICES [facility] - 09/19/2023 [...] ORDERABLES Fin al Result Performing Organization Address [facility]/ZIP Co de Phone Number [facility]# [id number] [address] [place] [address] * (ABNORMAL) HEMOGLOBIN A1C (09/18/2023 10:18 PM CDT) HEMOGLOBIN A1C 9.7(H) <5.7 % 09/19/2023 10:59 AM CDT [facility] EST. AVG GLUCOSE, A1C 232 mg/dL 09/19/2023 10:59 AM CDT [facility] Blood Venipuncture / Unknown 09/18/2023 10:18 PM CDT 09/18/2023 10:26 PM CDT Narrative [facility] - 09/19/2023 10:59 AM CDT HGB A1C INTERPRETATION NORMAL: <5.7% PRE-DIABETES: 5.7 - 6.4% DIABETES: 6.5% OR GREATER Herlinda Mederos DO CHEMISTRY ORDERABLES Final Resul t Performing Organization Address [facility]/ZIP Co de Phone Number [facility]# [id number] [address] [place] [address] from Last 3 Months or Most Recently Relevant to Health Maintenance Insurance RX MEDRANO PLANS (INTERNAL) [facility] [employer] RX MEDRANO PLANS (INTERNAL) [facility] [employer] RX [employer] RX Member Subscriber Plan / Payer (Ef fective 2025-Present) Name:Casandra Jones Relation to Subscriber:Self Name:Casandra Jones Subscriber ID:Not on file Payer ID:Not on file Group ID:[id number] Type:RX Medicare Part D Address: [facility] Address: [address] [address] [place] [address] [address] [id number] Advance Directives For more information, please contact: [phone] * Full Code (Latest Code Status on [...] 12:11 AM 01/02/2021 4:26 PM Care Teams Personal Consultant Relationship Specialty Start Date End Date Guerrero Middleton PA-C PCP - General Physician Delivery Architect 02/13/18
--- OUTSIDE RECORDS SUMMARY | 2025-02-20 11:43 | XMS_ITS | Encounter Summary ---
Author Organization [facility] Address [address] [place] [address] Care Team Providers Care Sales Executive Insurance Name Role Phone Guerrero Middleton PA-C Primary Care Provide r Encounter Details Date Type Department Care Team (Late st Contact Info) Description 10/26/[address] 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 Gender Identity Not on file Sexual Orientation Not on file Occupation Industry Job Start Date Job End Date Not on file Not on file Not on file Not on file documented as of this encounter Plan of Treatment Upcoming Encounters Date Type Department Care Team (Late st Contact Info) Description 06/18/2025 10:15 AM SHINGLE BOLT CUTTER Office Visit [facility] At [facility] [address] [place] [address] Kali Varela MD [address] [place] [address] documented as of this encounter Visit Diagnoses Not on filedocumented in this encounter Additional Health Concerns Infection Onset Date Last Indicated Resolved Time R/O GI Pathogen 09/19/2023 09/19/2023 09/21/2023 7 :33 AM CDT documented as of this encounter Care Teams Sales Executive Insurance Relationship Specialty Start Date End Date Guerrero Middleton PA-C PCP - General Physician Reporting Coordinator 02/13/18 documented as of this encounter
[2025-02-20 13:06] LABS: Alanine Aminotransferase 22 U/L (6-35); Albumin Level 4.6 g/dL (3.5-5.1); Alkaline Phosphatase 74 U/L (38-126); Anion Gap 10 mmol/L (4-12); Aspartate Amino Transferase 24 U/L (14-36); Bilirubin,Total 0.5 mg/dL (0.2-1.3); Blood Urea Nitrogen 22 mg/dL (7-17); Calcium 9.4 mg/dL (8.4-10.2); Carbon Dioxide 26 mmol/L (22-30); Chloride 100 mmol/L (98-107); Cholesterol 231 mg/dL (0-200); Estimated Glomerular Filt Rate > 60; Glucose 183 mg/dL (65-110); HDL Direct 61 mg/dL; Potassium 4.1 mmol/L (3.4-5.0); Sodium 136 mmol/L (137-145); Total Protein 7.5 g/dL (6.3-8.2); Triglycerides 146 mg/dL (<150)
[2025-02-20 13:14] LABS: MALB Creatinine Ratio 9.8 mg/g (0-30)
[2025-02-20 13:22] LABS: Free T4 Free Thyroxine 0.83 ng/dL (0.78-2.19)
[2025-02-20 13:41] LABS: Thyroid Stimulating Hormone 22.900 uIU/mL (0.465-4.680)
== END 2025-02-20 11:42 | disposition home or self-care (01) ==
PROVIDERS: PCP Nurse Practitioner; Visit Provider Internal Medicine
DX: E11.65 Type 2 diabetes mellitus with hyperglycemia (principal); E03.8 Other specified hypothyroidism; E78.1 Pure hyperglyceridemia; E87.6 Hypokalemia; E78.3 Hyperchylomicronemia; E06.3 Autoimmune thyroiditis; E86.0 Dehydration; E66.3 Overweight; Z68.30 Body mass index [BMI] 30.0-30.9, adult; Z79.4 Long term (current) use of insulin; Z71.3 Dietary counseling and surveillance
CPT/HCPCS: 36415; 80053; 80061; 82043; 84439; 84443

== ENCOUNTER 2025-02-22 22:18 | Emergency (ER) | payer MEDICARE, SELFPAY ==
[2025-02-22] VITALS (7 sets, daily range): BP systolic 102–130; BP diastolic 86–89; PULSE 86–94; RESP 7–19; TEMP 36.8; O2SAT 97–99
--- NOTE | ~2025-02-22 | CT_ITS ---
EXAMINATION: CT abdomen pelvis w con DATE: 02/22/2025 23:30 INDICATION: Right lower quadrant abdominal pain. TECHNIQUE: Computed tomography (CT) of the abdomen and pelvis was performed with 100 mL Omnipaque 350 intravenous contrast. Automated exposure control and iterative reconstruction technique were employed. The dose-length product was 1334.92 mGy-cm. COMPARISON: CT abdomen and pelvis 12/11/2024 FINDINGS: The visualized portions of the lung bases demonstrate mild dependent atelectasis. No pleural effusion. The heart size is normal. There are coronary artery calcifications. No pericardial effusion. There are 2 catheters tips in right atrium. There is diffuse hepatic steatosis. The gallbladder, spleen, pancreas, and adrenal glands are normal. There is mild bilateral hydronephrosis. There is a 1.4 cm cyst in left kidney. There are no dilated loops of bowel. The appendix is not visualized. There are no pathologically enlarged lymph nodes. There is no free intraperitoneal fluid. There is mild thoracic and lumbar spondylosis. IMPRESSION: 1. Mild bilateral hydronephrosis. Reviewed, dictated and finalized at location E.
--- NOTE | ~2025-02-22 | CT_ITS ---
EXAMINATION: CTA brain carotid DATE: 02/22/2025 23:30 INDICATION: Altered mental status. Stroke. TECHNIQUE: Computed tomographic angiography (CTA) of the head was performed without and with 100 mL Omnipaque-350 intravenous contrast. CTA of the neck was performed with intravenous contrast. Automated exposure control and iterative reconstruction technique were employed. The dose-length product was 1707.43 mGy- cm. Maximum intensity projection and volume rendered 3D-reconstructions were created by the technologist on a separate workstation. COMPARISON: Head CT 10/02/2023 FINDINGS: HEAD CTA: There is no intracranial hemorrhage, acute infarction, or abnormal intracranial mass lesion. The ventricles are normal in size. There is mild mucosal thickening in the paranasal sinuses. The orbits are normal. The mastoid air cells are normal. The vertebral arteries are codominant. There is no significant stenosis of basilar artery or the posterior cerebral arteries. The posterior communicating arteries are normal. There is no significant stenosis of the intracranial internal carotid arteries or anterior or middle cerebral arteries. Anterior communicating artery is normal. There is no aneurysm. NECK CTA: There is a left internal jugular port with tip not included. There is a right internal jugular port with tip not included. There are no pathologically enlarged lymph nodes. There is no significant stenosis of the vertebral arteries. There is mild plaque in the proximal internal carotid. There is 0% stenosis of the proximal right internal carotid artery relative to normal distal artery lumen diameter (NASCET criteria). There is 0% stenosis of the proximal left internal carotid artery relative to normal distal artery lumen diameter. There is mild cervical spondylosis. IMPRESSION: 1. Normal brain. 2. No aneurysm or significant intracranial arterial stenosis. 3. 0% stenosis of the proximal internal carotid arteries relative to normal distal artery lumen diameters (NASCET criteria). Reviewed, dictated and finalized at location E. IMPRESSION: 1. Normal brain. 2. No aneurysm or significant intracranial arterial stenosis. 3. 0% stenosis of the proximal internal carotid arteries relative to normal dis sudheer artery lumen diameters (NASCET criteria).
--- NOTE | 2025-02-22 22:22 | ECG_ITS ---
Test Date: 2025-02-22 22:32:11 Measurements Intervals Hen[place] Rate: 89 P: 51 NC: 159 QRS: 40 QRSD: 86 T: 31 QT: 365 QTc: 445 Interpretive Statements SINUS RHYTHM BORDERLINE ST-T WAVE ABNORMALITY- INFERIOR LEADS BASELINE ARTIFACT- I, II, III, AVR, AVL BORDERLINE ECG Compared to ECG 12/19/2024 22:04:53 NO SIGNIFICANT CHANGE Electronically Signed On 02-23-2025 06:13:35 CDT by Baron Bowers D.O.
[2025-02-22 22:44] LABS: Hematocrit 39.7 % (37.0-47.0); Hemoglobin 13.3 g/dL (12.0-15.0); Immature Granulocyte Percent A 0.6 % (0-0.5); Lymphocytes Absolute Auto 2.80 K/mm3 (0.9-3.2); Mean Corpuscular HGB Conc 33.5 g/dl (32-36); Mean Corpuscular Hemoglobin 29.6 pg (26-34); Mean Corpuscular Volume 88.4 fl (80-100); Nucleated Red Blood Cells Absolute Auto 0.000 K/mm3 (0.0-0.012); Nucleated Red Blood Cells Perc 0.0 % (0.0-0.2); Platelet Count Result 218 k/mm3 (150-375); Red Blood Count 4.49 M/mm3 (4.2-5.4); White Blood Count 8.3 K/mm3 (4.5-10.0)
[2025-02-22] MEDS: ONDANSETRON INJ 4 MG/2 ML VIAL IV PUSH (22:45)
[2025-02-22] MEDS: MORPHINE SULFATE (*CRX) 4 MG/ML INJ IV PUSH (22:45)
[2025-02-22 22:56] LABS: Alanine Aminotransferase 30 U/L (6-35); Albumin Level 4.6 g/dL (3.5-5.1); Alkaline Phosphatase 72 U/L (38-126); Anion Gap 7 mmol/L (4-12); Aspartate Amino Transferase 39 U/L (14-36); Bilirubin,Total 0.4 mg/dL (0.2-1.3); Blood Urea Nitrogen 14 mg/dL (7-17); Calcium 9.2 mg/dL (8.4-10.2); Carbon Dioxide 25 mmol/L (22-30); Chloride 104 mmol/L (98-107); Estimated Glomerular Filt Rate > 60; Glucose 113 mg/dL (65-110); Potassium 3.8 mmol/L (3.4-5.0); Sodium 136 mmol/L (137-145); Total Protein 7.3 g/dL (6.3-8.2)
[2025-02-22 22:59] LABS: INR 1.0; Prothrombin Time 13.2 Seconds (11.1-14.7)
[2025-02-22 23:00] LABS: Partial Thromboplastin Time 32.2 Seconds (22.3-36.8)
--- NOTE | 2025-02-22 23:01 | ED.AMS ---
HPI - Altered Mental Status General Chief Complaint: Altered Mental Status Stated Complaint: weakness, ams Time Seen by Provider: 02/22/25 22:21 Source: patient, family and EMS Mode of arrival: EMS Limitations: no limitations History of Present Illness HPI narrative: This is a 49-year-old female with history of chylomicronemia, chronic pancreatitis, diabetes who presents to the ED for altered mental status. Per family, patient apparently had an episode at about 1830 (5 hours ago) when she sat down to watch TV and spaced out for about an hour. Patient states that she remembers sitting down to this and next thing she knew the TV show was over. She does not recall anything. Apparently she was unresponsive during this episode so EMS was called. She has felt weak ever since then. She states that she has had some right lower quadrant pain since this as well that is new for her. She does have a history of ovarian cysts. Also notes a left occipital headache that is new. Related Data Home Medications ?Medication ?Instructions ?Recorded ?Confirmed ?Last Taken ?Type metoprolol succinate 25 mg 12.5 mg PO DAILY 03/31/24 02/05/25 09/21/24 History tablet,extended release 24 hr olezarsen 80 mg/0.8 mL 80 mg subcut MONTHLY 09/16/24 02/05/25 11/27/24 History subcutaneous auto-injector (Tryngolza) clopidogrel 75 mg tablet (Plavix) 75 mg PO DAILY 02/05/25 02/05/25 Unknown History Allergies Allergy/AdvReac Type Severity Reaction Status Date / Time adhesive tape Allergy Mild Rash Verified 02/23/25 11:59 [place] pepper (green pepper) Allergy Unknown Hives Verified 02/23/25 11:59 sucralose (From Splenda Allergy Migraine Verified 02/23/25 11:59 (sucralose)) Artificial Sweetners AdvReac Migraine Uncoded 02/05/25 07:29 Review of Systems Review of Systems: Gen.: Denies fevers or chills Eyes: Denies eye pain or visual change ENT: Denies congestion Respiratory: Denies shortness of breath or cough CV: Denies chest pain or palpitations GI: As per HPI denies burning, urgency, frequency or hematuria Musculoskeletal: Denies back pain or muscle pain Neuro: As per HPI Skin: Denies rash Except as documented, all other systems reviewed and negative PMFSH Past Medical History Medical History BMI 30.0-30.9,adult Gastroenteritis Gastroparesis Chylomicronemia syndrome CAD (coronary artery disease) Anxiety BMI 31.0-31.9,adult Hx of intermediate use of blood thinners Abnormal CT scan, esophagus Nausea Occult blood in stools Colon cancer screening Hypertriglyceridemia PCOS (polycystic ovarian syndrome) GERD (gastroesophageal reflux disease) 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 Allergic rhinitis Insulin dependent diabetes mellitus Chronic pancreatitis (~09/02/23) Port-A-Cath in place Lipoprotein deficiency Headache Surgical History Surgical History History of wisdom tooth extraction History of tubal ligation History of partial hysterectomy History of endometrial ablation History of appendectomy History of loop electrical excision procedure (LEEP) History of exploratory laparotomy History of dilatation and curettage History of conization of cervix History of tonsillectomy Family History Family History Father Alcohol abuse Hypercholesteremia Hypertension Family history of alcoholism Family history of cardiovascular disease Diabetes mellitus Mother Hypercholesteremia Hypothyroid Cerebrovascular accident Family history of cardiovascular disease Diabetes mellitus Grandparent Skin cancer Colon cancer Heart disease Hypothyroid Cerebrovascular accident Sibling Autoimmune disorder Hypothyroid Kidney disorder Hypertension Diabetes mellitus Other Family history of kidney disease Social History Social History Social History: She smokes up to 1ppd since age 16yo. No alcohol or drug use. She has dog and a cat at home. Surrogate medical decision maker: José Miguel Jones, spouse. Code status: Full Smoking packs per day: 0.5 Smoking cigarettes per day: 10.0 Years smoked: 20 Smoking pack-years: 10.00 Smoking status: Current every day smoker Tobacco type: cigarettes Second hand tobacco smoke exposure: No Alcohol intake: never Drinks per week: 0 Substance use: never Substance use type: does not use Do You Feel Safe in your Home?: Yes Lack of Transportation: No Lack of Food: Never True Current Housing: I Have Housing Concerned About Future Housing: No Difficulty Paying Gas/Electric Bills: No Difficulty Paying for Meds: No Currently Unemployed: No Education: Associate Degree Difficulty w/ Childcare or Family Care: No Living arrangements: with family Occupation/Education: 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 CARDIOVASCULAR: Regular rate and rhythm without murmurs rubs or gallops. ABDOMINAL: Soft, right lower quadrant tenderness to palpation, nondistended, no rebound or guarding. Insulin pump in place to the left lower quadrant. MUSCULOSKELETAl: Moves all extremities. No clubbing, cyanosis or edema. NEURO: Awake and alert. Following commands, speech is slow, no focal deficits. Does have noted weakness to the lower facial muscles bilaterally. 4/5 strength to the right lower extremity reportedly due to right lower quadrant abdominal pain. SKIN:: Warm, dry. No rashes lesions or abrasions PSYCHIATRIC: Normal affect/mood, Course Vital Signs Vital signs: Vital Signs Temperature 98.2 F 02/22/25 22:14 Pulse Rate 92 02/22/25 22:14 Respiratory Rate 19 02/22/25 22:14 Blood Pressure 125/86 02/22/25 22:14 Pulse Oximetry 99 02/22/25 22:14 Oxygen Delivery Room Air 02/22/25 22:14 Temperature 98.2 F 02/22/25 22:14 Pulse Rate 76 02/23/25 12:54 Respiratory Rate 18 02/23/25 12:54 Blood Pressure 111/73 02/23/25 12:54 Pulse Oximetry 97 02/23/25 12:54 Oxygen Delivery Room Air 02/22/25 22:45 MDM - Altered Mental Status MDM Narrative Medical decision making narrative: 49-year-old female Presenting for altered mental status. On initial evaluation patient was in no acute distress, afebrile, hemodynamic stable. Differentials include but are not limited to: CVA, TIA, ICH, meningitis, UTI, cancer, drug intoxication, hypoglycemia, electrolyte abnormality Notable exam findings: Weakness throughout the body notably the the lower face bilaterally. AAO x2 Notable lab findings: CBC and CMP without significant abnormalities. UA clear. UDS negative except for opiates (from morphine given here). COVID/flu/RSV negative. Alcohol negative. Notable imaging findings: CT head and CTA head/neck showed acute abnormalities. CT abdomen/pelvis showed no acute abnormalities. Patient remained AAO x2 but was having an easier time conversing. She was able to ambulate but with significant assistance which was new for her. There is a possibility the patient has sustained a stroke and will require further neurologic evaluation and MRI. However, patient does bilateral a pheresis ports they were not compatible with our MRI. Because of this, she will require transfer for further evaluation. Patient's horticultural technical officer and lipid specialist are at [facility] and she is requesting to go there. I spoke with the transfer center there their MRI is capable of imaging her. Dr. Gilbert accept the patient as a direct admit. Patient was given her home Brilinta and aspirin here in the ED. patient transferred in a stable condition. Medical Records Attestation: I reviewed the patient's medical records. Lab Data Attestation: I reviewed the patient's lab results. 02/22/25 22:33 02/22/25 22:33 Labs: Lab Results 02/22/25 02/22/25 02/22/25 Range/Units 22:32 22:33 23:44 WBC 8.3 (4.5-10.0) K/mm3 RBC 4.49 (4.2-5.4) M/mm3 Hgb 13.3 (12.0-15.0) g/dL Hct 39.7 (37.0-47.0) % MCV 88.4 (80-100) fl MCH 29.6 (26-34) pg MCHC 33.5 (32-36) g/dl RDW 14.7 H (11.5-14.5) % Plt Count 218 (150-375) k/mm3 MPV 9.2 (7.4-10.4) fl Immature Gran % (Auto) 0.6 H (0-0.5) % Neut % (Auto) 57.4 (45.5-73.1) % Lymph % (Auto) 33.9 (18.3-44.2) % [place] % (Auto) 6.8 (2.6-8.5) % Eos % (Auto) 0.8 (0-4.4) % Baso % (Auto) 0.5 (0.2-1.2) % Lymph # (Auto) 2.80 (0.9-3.2) K/mm3 [place] # (Auto) 0.6 (0.1-0.6) K/mm3 Eos # (Auto) 0.1 (0-0.3) K/mm3 Baso # (Auto) 0.0 (0.0-0.1) K/mm3 Abs Immat Gran (auto) 0.05 H (0.00-0.031) K/mm3 Absolute Neuts (auto) 4.7 (1.3-6.7) K/mm3 Absolute Nucleated RBC 0.000 (0.0-0.012) K/mm3 Nucleated RBC % 0.0 (0.0-0.2) % PT 13.2 (11.1-14.7) Seconds INR 1.0 APTT 32.2 (22.3-36.8) Seconds Sodium 136 L (137-145) mmol/L Potassium 3.8 (3.4-5.0) mmol/L Chloride 104 (98-107) mmol/L Carbon Dioxide 25 (22-30) mmol/L Anion Gap 7 (4-12) mmol/L BUN 14 D (7-17) mg/dL Creatinine 0.76 (0.7-1.0) mg/dL Estim Creat Clear Calc Not Reportable Estimated GFR > 60 (59 - ) Glucose 113 H (65-110) mg/dL POC Capillary Glucose 104 (65-105) mg/dl Lactic Acid 1.7 (0.7-2.0) mmol/L Calcium 9.2 (8.4-10.2) mg/dL Total Bilirubin 0.4 (0.2-1.3) mg/dL AST 39 H (14-36) U/L ALT 30 (6-35) U/L Alkaline Phosphatase 72 (38-126) U/L Total Protein 7.3 (6.3-8.2) g/dL Albumin 4.6 (3.5-5.1) g/dL Serum HCG, Qual Negative Urine Color Yellow (Yellow) Urine Appearance Clear (Clear) Urine pH 7.0 (5.0-9.0) Ur Specific [place] 1.025 (1.001-1.035) Urine Protein Negative (Negative) mg/dL Urine Glucose (UA) Negative (Negative) mg/dL Urine Ketones Negative (Negative) mg/dL Ur Blood (Man) Negative (Negative) Urine Nitrate Negative (Negative) Urine Bilirubin Negative (Negative) Urine Urobilinogen 1.0 (<2.0) mg/dL Leukocyte Esterase Rfl Negative (Negative) STEPHEN/UL POC Urine HCG, Qual (Negative) Urine Opiates Screen Positive A (Negative) Urine Methadone Screen Negative (Negative) Ur Barbiturates Screen Negative (Negative) Ur Phencyclidine Scrn Negative (Negative) Ur Amphetamine Screen Negative (Negative) U Benzodiazepines Scrn Negative (Negative) Urine Cocaine Screen Negative (Negative) U Cannabinoids Screen Negative (Negative) Ethyl Alcohol < 10 (<10) mg/dL Influenza A (RT-PCR) (Negative) Influenza B (RT-PCR) (Negative) RSV (RT-PCR) (Negative) SARS-CoV-2 RNA (RT-PCR) (Negative) 02/22/25 02/23/25 02/23/25 Range/Units 23:49 01:03 11:46 WBC (4.5-10.0) K/mm3 RBC (4.2-5.4) M/mm3 Hgb (12.0-15.0) g/dL Hct (37.0-47.0) % MCV (80-100) fl MCH (26-34) pg MCHC (32-36) g/dl RDW (11.5-14.5) % Plt Count (150-375) k/mm3 MPV (7.4-10.4) fl Immature Gran % (Auto) (0-0.5) % Neut % (Auto) (45.5-73.1) % Lymph % (Auto) (18.3-44.2) % [place] % (Auto) (2.6-8.5) % Eos % (Auto) (0-4.4) % Baso % (Auto) (0.2-1.2) % Lymph # (Auto) (0.9-3.2) K/mm3 [place] # (Auto) (0.1-0.6) K/mm3 Eos # (Auto) (0-0.3) K/mm3 Baso # (Auto) (0.0-0.1) K/mm3 Abs Immat Gran (auto) (0.00-0.031) K/mm3 Absolute Neuts (auto) (1.3-6.7) K/mm3 Absolute Nucleated RBC (0.0-0.012) K/mm3 Nucleated RBC % (0.0-0.2) % PT (11.1-14.7) Seconds INR APTT (22.3-36.8) Seconds Sodium (137-145) mmol/L Potassium (3.4-5.0) mmol/L Chloride (98-107) mmol/L Carbon Dioxide (22-30) mmol/L Anion Gap (4-12) mmol/L BUN (7-17) mg/dL Creatinine (0.7-1.0) mg/dL Estim Creat Clear Calc Estimated GFR (59 - ) Glucose (65-110) mg/dL POC Capillary Glucose 72 (65-105) mg/dl Lactic Acid (0.7-2.0) mmol/L Calcium (8.4-10.2) mg/dL Total Bilirubin (0.2-1.3) mg/dL AST (14-36) U/L ALT (6-35) U/L Alkaline Phosphatase (38-126) U/L Total Protein (6.3-8.2) g/dL Albumin (3.5-5.1) g/dL Serum HCG, Qual Urine Color (Yellow) Urine Appearance (Clear) Urine pH (5.0-9.0) Ur Specific [place] (1.001-1.035) Urine Protein (Negative) mg/dL Urine Glucose (UA) (Negative) mg/dL Urine Ketones (Negative) mg/dL Ur Blood (Man) (Negative) Urine Nitrate (Negative) Urine Bilirubin (Negative) Urine Urobilinogen (<2.0) mg/dL Leukocyte Esterase Rfl (Negative) STEPHEN/UL POC Urine HCG, Qual Negative (Negative) Urine Opiates Screen (Negative) Urine Methadone Screen (Negative) Ur Barbiturates Screen (Negative) Ur Phencyclidine Scrn (Negative) Ur Amphetamine Screen (Negative) U Benzodiazepines Scrn (Negative) Urine Cocaine Screen (Negative) U Cannabinoids Screen (Negative) Ethyl Alcohol (<10) mg/dL Influenza A (RT-PCR) Negative (Negative) Influenza B (RT-PCR) Negative (Negative) RSV (RT-PCR) Negative (Negative) SARS-CoV-2 RNA (RT-PCR) Negative (Negative) Imaging Data Attestation: I personally reviewed and interpreted this imaging study as follows: Radiologist's impression: CT head: No intracranial hemorrhage, mass effect or edema. No evidence of acute cortical stroke CT a head: No large vessel occlusion CTA neck: No flow-limiting lesions CT abdomen and pelvis with contrast: No appendicitis. No acute adnexal pathology. No hernia. No other acute findings. Discharge Plan Discharge Clinical Impression: Altered awareness, transient Patient Disposition: Acute Care Hospital Condition: Stable Patient Language: [place] Islander Prescriptions: No Action Tryngolza 80 mg/0.8 mL auto-injector 80 mg subcut MONTHLY pantoprazole [Protonix] 40 mg tablet,delayed release (DR/EC) 40 mg PO BID Qty: 30 0RF metoclopramide HCl 5 mg tablet 5 mg PO TIDWMEAL 30 Days Qty: 90 11RF clopidogrel [Plavix] 75 mg tablet 75 mg PO DAILY metformin 500 mg tablet 1,000 mg PO BID Qty: 180 1RF Rx Instructions: with morning & evening meals bupropion HCl [Wellbutrin XL] 150 mg tablet extended release 24 hr 150 mg PO QAM Qty: 90 3RF citalopram 40 mg tablet 40 mg PO HS Qty: 90 3RF Rx Instructions: TAKE 1 TABLET BY MOUTH EVERY DAY aspirin 81 mg Tablet,Delayed Release (Dr/Ec) 81 mg PO QAM Qty: 30 0RF acetaminophen 500 mg tablet 1,000 mg PO TID PRN (Reason: qasim) 7 Days Qty: 42 0RF ondansetron 4 mg tablet,disintegrating 4 mg PO Q8H PRN (Reason: nausea and vomiting) Qty: 30 0RF metoprolol succinate 25 mg tablet extended release 24 hr 12.5 mg PO DAILY atorvastatin 80 mg tablet 80 mg PO HS Qty: 90 3RF fenofibrate 160 mg tablet 160 mg PO DAILY Qty: 90 2RF trazodone 100 mg tablet 200 mg PO HS Qty: 180 1RF insulin lispro [Humalog U-100 Insulin] 100 unit/mL solution 1 sliding scale dose subcut USEASDIRECTD MDD 60 Qty: 60 0RF Rx Instructions: Dx Code E11.9 Type 2 Diabetes lorazepam 1 mg tablet 1 mg PO QHS Qty: 90 0RF levothyroxine [Levo-T] 25 mcg tablet 25 mcg PO DAILY Qty: 90 3RF levothyroxine 200 mcg tablet 200 mcg PO DAILY Qty: 90 3RF Follow-up/Referrals: Jose Zuniga APRN [Primary Care Provider, Internal Medicine]
[2025-02-22 23:03] LABS: SPREG INTERNAL CONTROL Positive; Serum Qual hCG Negative
[2025-02-22 23:51] LABS: BEDSIDEPREGUCG Negative (Negative)
[2025-02-22 23:54] LABS: Add Urine Microscopic? NO; Appearance Urine Clear (Clear); Glucose Urine UA Negative (Negative); Leukocyte Esterase Ur Negative LEU/UL (Negative); Nitrate Urine Negative (Negative); Specific Grav Ur 1.025 (1.001-1.035)
[2025-02-23] VITALS (57 sets, daily range): BP systolic 78–128; BP diastolic 39–83; PULSE 70–91; RESP 7–20; O2SAT 91–99
[2025-02-23] MEDS: HYDROmorphone HCL INJ (*CRX) 1 MG/ML SYR 0.5 MG IV PUSH (00:07)
[2025-02-23 00:24] LABS: Cannabinoid Screen Urine Negative (Negative)
[2025-02-23] MEDS: SODIUM CHLORIDE 0.9% IV 1,000 ML 999 ML IV CONT ×2 (02:02→03:38)
[2025-02-23 02:30] LABS: Influenza A QL RT-PCR Negative (Negative); Influenza B QL RT-PCR Negative (Negative); RSV RNA, RT-PCR Negative (Negative); SARS-CoV-2 RNA PCR Negative (Negative)
[2025-02-23] MEDS: TICAGRELOR 90 MG TABLET PO (02:30)
[2025-02-23] MEDS: ASPIRIN 81 MG ENTERIC TABLET PO (02:30)
[2025-02-23] MEDS: HYDROcodone/acetaminophen (*CRX) 5-325 MG TABLET 1 TAB PO (02:30)
--- NOTE | 2025-02-23 06:56 | PC.NURSE ---
made aware of softer pressure. No current intervention ordered
[2025-02-23] MEDS: SODIUM CHLORIDE 0.9% IV 1,000 ML 150 ML IV CONT (07:10)
--- NOTE | 2025-02-23 10:28 | PC.NURSE ---
Sleeping. Awaiting bed from [facility].
--- NOTE | 2025-02-23 10:43 | PC.NURSE ---
1034 Still awaiting bed placement at [facility].
--- NOTE | 2025-02-23 11:18 | PC.NURSE ---
Spoke with [facility], they still have no bed available and will call when one becomes available.
[2025-02-23] MEDS: SODIUM CHLORIDE 0.9% IV 1,000 ML 150 ML (13:06)
[2025-02-23] MEDS: ONDANSETRON INJ 4 MG/2 ML VIAL IV PUSH (13:09)
== END 2025-02-23 14:00 | disposition short-term general hospital (02) ==
LOC: ANHED 22:48
PROVIDERS: Registered Nurse; Emergency Provider Student in an Organized Health Care Education/Training Program; PCP Nurse Practitioner
DX: R40.4 Transient alteration of awareness (principal); Z20.822 Contact with and (suspected) exposure to COVID-19; R10.31 Right lower quadrant pain; I25.10 Atherosclerotic heart disease of native coronary artery without angina pectoris; E11.43 Type 2 diabetes mellitus with diabetic autonomic (poly)neuropathy; K31.84 Gastroparesis; K86.1 Other chronic pancreatitis; E78.3 Hyperchylomicronemia; E78.1 Pure hyperglyceridemia; E28.2 Polycystic ovarian syndrome; K21.9 Gastro-esophageal reflux disease without esophagitis; F41.9 Anxiety disorder, unspecified; F17.210 Nicotine dependence, cigarettes, uncomplicated; Z90.711 Acquired absence of uterus with remaining cervical stump; Z79.4 Long term (current) use of insulin; Z79.899 Other long term (current) drug therapy; Z79.02 Long term (current) use of antithrombotics/antiplatelets; Z79.84 Long term (current) use of oral hypoglycemic drugs; R94.31 Abnormal electrocardiogram [ECG] [EKG]; N13.30 Unspecified hydronephrosis
CPT/HCPCS: 36415; 70496; 70498; 74177; 80053; 80307; 81003; 81025; 82077; 82948; 83605; 84703; 85025; 85610; 85730; 87637; 93005; 96361; 96374; 96375; 99285; A9270; J1171; J1200; J2270; J2405; J7030; Q9967

== ENCOUNTER 2025-03-29 12:57 | Outpatient (CLI) | payer MEDICARE, SELFPAY ==
--- OUTSIDE RECORDS SUMMARY | 2025-03-29 14:07 | XMS_ITS | Encounter Summary ---
Author Organization [facility] Address 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 Gender Identity Not on file Sexual Orientation Not on file Occupation Industry Job Start Date Job End Date Not on file Not on file Not on file Not on file documented as of this encounter Plan of Treatment Upcoming Encounters Date Type Department Care Team (Late st Contact Info) Description 06/18/2025 10:15 AM HEALTH ADMINISTRATION TEACHER Office Visit [facility] At [facility] [address] [place] [address] Kali Varela MD [address] [place] [address] documented as of this encounter Visit Diagnoses Not on filedocumented in this encounter Additional Health Concerns Infection Onset Date Last Indicated Resolved Time R/O GI Pathogen 09/19/2023 09/19/2023 09/21/2023 7 :33 AM CDT documented as of this encounter Care Teams Health Records Technology Teacher Relationship Specialty Start Date End Date Stanislaw Marinelli DO [address] [facility] [address] [facility] [address] [place] [id number] PCP - General Internal Medicine 02/22/25 documented as of this encounter
--- OUTSIDE RECORDS SUMMARY | 2025-03-29 14:07 | XMS_ITS | Encounter Summary ---
Author Organization [facility] Address 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 Gender Identity Not on file Sexual Orientation Not on file Occupation Industry Job Start Date Job End Date Not on file Not on file Not on file Not on file documented as of this encounter Plan of Treatment Upcoming Encounters Date Type Department Care Team (Late st Contact Info) Description 06/18/2025 10:15 AM FOSTER CARE CASE MANAGER Office Visit [facility] Heart and Vascular At [facility] [address] [place] [address] Kali Varela MD [address] [place] [address] documented as of this encounter Visit Diagnoses Not on filedocumented in this encounter Additional Health Concerns Infection Onset Date Last Indicated Resolved Time R/O GI Pathogen 09/19/2023 09/19/2023 09/21/2023 7 :33 AM CDT documented as of this encounter Care Teams Bad Work Gatherer Relationship Specialty Start Date End Date Stanislaw Marinelli DO [address] [facility] [address] [facility] [address] [place] [id number] PCP - General Internal Medicine 02/22/25 documented as of this encounter
--- OUTSIDE RECORDS SUMMARY | 2025-03-29 14:07 | XMS_ITS | Encounter Summary ---
Author Organization [facility] Address [address] [place] [address] Care Team Providers Care Content Editor Name Role Phone Stanislaw Marinelli Primary Care Provider Encounter Details Date Type Department Care Team (Late st Contact Info) Description 10/26/2021 Telephone [facility] Donor Services [address] [address] Nicole Rosas MD [address] [place] [address] Social History Tobacco Use Types [...] on file Legal Sex Female 6:07 AM WELL SERVICES OPERATOR Gender Identity Not on file Sexual Orientation Not on file Occupation Industry Job Start Date Job End Date Not on file Not on file Not on file Not on file documented as of this encounter Plan of Treatment Upcoming Encounters Date Type Department Care Team (Late st Contact Info) Description 06/18/2025 10:15 AM WELL SERVICES OPERATOR Office Visit [facility] Heart and Vascular At [facility] [address] [place] [address] Kali Varela MD [address] [place] [address] documented as of this encounter Visit Diagnoses Not on filedocumented in this encounter Additional Health Concerns Infection Onset Date Last Indicated Resolved Time R/O GI Pathogen 09/19/2023 09/19/2023 09/21/2023 7 :33 AM CDT documented as of this encounter Care Teams Content Editor Relationship Specialty Start Date End Date Stanislaw Marinelli DO [address] [facility] [address] [facility] [address] [place] [id number] PCP - General Internal Medicine 02/22/25 documented as of this encounter
--- OUTSIDE RECORDS SUMMARY | 2025-03-29 14:07 | XMS_ITS | Encounter Summary ---
Author Organization [facility] Address [address] [place] [address] Care Team Providers Care Tool Maker Name Role Phone Stanislaw Marinelli Maxwell REHMAN Primary Care Provider [phone] Encounter Details Date Type Department Care Team (Late st Contact Info) Description 03/14/2022 Telephone [facility] Donor Services [facility] [address] [place] [address] Phoenix Riddle MD [address] [facility] [place] [address] Social History Tobacco Use Types [...] on file Legal Sex Female 6:07 AM FIELD MARKETER Gender Identity Not on file Sexual Orientation Not on file Occupation Industry Job Start Date Job End Date Not on file Not on file Not on file Not on file documented as of this encounter Plan of Treatment Upcoming Encounters Date Type Department Care Team (Late st Contact Info) Description 06/18/2025 10:15 AM FIELD MARKETER Office Visit [facility] Heart and Vascular At [facility] [address] [place] [address] Kali Varela MD [address] [place] [address] documented as of this encounter Visit Diagnoses Not on filedocumented in this encounter Additional Health Concerns Infection Onset Date Last Indicated Resolved Time R/O GI Pathogen 09/19/2023 09/19/2023 09/21/2023 7 :33 AM CDT documented as of this encounter Care Teams Tool Maker Relationship Specialty Start Date End Date Stanislaw Marinelli DO 68[address] [facility] [address] [facility] [address] [place] [address] PCP - General Internal Medicine 02/22/25 documented as of this encounter
--- OUTSIDE RECORDS SUMMARY | 2025-03-29 14:07 | XMS_ITS | Encounter Summary ---
Author Organization [facility] Address [address] [place] [address] Care Team Providers Care Buggy Loader Name Role Phone Stanislaw Marinelli Primary Care Provider [phone] Encounter Details Date Type Department Care Team (Late st Contact Info) Description 01/04/2022 Telephone [facility] Donor Services [facility] [address] [place] [address] Phoenix Riddle MD [address] [facility] Department [place] [address] Social History Tobacco Use Types [...] on file Legal Sex Female 6:07 AM CROSS TIE TRAM LOADER Gender Identity Not on file Sexual Orientation [...] st Contact Info) Description 06/18/2025 10:15 AM CROSS TIE TRAM LOADER Office Visit [facility] Heart and Vascular At [place] [address] [address] [address] [place] [address] Kali Varela MD [facility] [address] [place] [address] documented as of this encounter Visit Diagnoses Not on filedocumented in this encounter Additional Health Concerns Infection Onset Date Last Indicated Resolved Time R/O GI Pathogen 09/19/2023 09/19/2023 09/21/2023 7 :33 AM CDT documented as of this encounter Care Teams Buggy Loader Relationship Specialty Start Date End Date Stanislaw Marinelli DO 6812 [facility] [address] [place] [address] PCP - General Internal Medicine 02/22/25 documented as of this encounter
--- OUTSIDE RECORDS SUMMARY | 2025-03-29 14:07 | XMS_ITS | Encounter Summary ---
Author Organization [facility] Address [address] [place] [address] Care Team Providers Care Steam Tender Name Role Phone Stanislaw Marinelli Primary Care Provider [phone] Reason for Visit * Reason Onset Date Comments Bard Port flush 11/16/2021 Attempted to patel ch pt due to needing bard port flushes Encounter Details Date Type Department Care Team (Late st Contact Info) Description 11/16/2021 Telephone [facility] Oncology [address] [place] [address] Nicole Rosas MD [address] [place] [address] Bard Port flush (Attempted to [...] on file Legal Sex Female 6:07 AM EDITOR NEWS Gender Identity Not on file Sexual Orientation Not on file Occupation Industry Job Start Date Job End Date Not on file Not on file Not on file Not on file documented as of this encounter Plan of Treatment Upcoming Encounters Date Type Department Care Team (Late st Contact Info) Description 06/18/2025 10:15 AM EDITOR NEWS Office Visit [facility] Heart and Vascular At [place] [address] [place] [address] Kali Varela MD [facility] [address] [facility] [address] [place] [address] documented as of this encounter Visit Diagnoses Not on filedocumented in this encounter Additional Health Concerns Infection Onset Date Last Indicated Resolved Time R/O GI Pathogen 09/19/2023 09/19/2023 09/21/2023 7 :33 AM CDT documented as of this encounter Care Teams Steam Tender Relationship Specialty Start Date End Date Stanislaw Marinelli DO 6812 [facility] [address] [place] [address] PCP - General Internal Medicine 02/22/25 documented as of this encounter
--- OUTSIDE RECORDS SUMMARY | 2025-03-29 14:07 | XMS_ITS | Encounter Summary ---
Author Organization [facility] Address [address] [place] [address] Care Team Providers Care Fur Drummer Name Role Phone Stanislaw Marinelli DO Primary Care Provider [phone] Reason for Visit * Reason Onset Date Comments OTHER 11/21/2021 Encounter Details Date Type Department Care Team (Late st Contact Info) Description 11/21/2021 Telephone [facility] Oncology [address] [place] [address] Nicole Rosas MD [address] [place] [address] OTHER Social History Tobacco Use [...] on file Legal Sex Female 6:07 AM JIGMAKER Gender Identity Not on file Sexual Orientation Not on file Occupation Industry Job Start Date Job End Date Not on file Not on file Not on file Not on file documented as of this encounter Plan of Treatment Upcoming Encounters Date Type Department Care Team (Late st Contact Info) Description 06/18/2025 10:15 AM JIGMAKER Office Visit [facility] Heart and Vascular At [place] [address] [place] [address] Kali Varela MD [facility] [address] [facility] [place] [address] documented as of this encounter Visit Diagnoses Not on filedocumented in this encounter Additional Health Concerns Infection Onset Date Last Indicated Resolved Time R/O GI Pathogen 09/19/2023 09/19/2023 09/21/2023 7 :33 AM CDT documented as of this encounter Care Teams Fur Drummer Relationship Specialty Start Date End Date Stanislaw Marinelli DO 6812 [facility] [address] [facility] [address] [place] [address] PCP - General Internal Medicine 02/22/25 documented as of this encounter
--- OUTSIDE RECORDS SUMMARY | 2025-03-29 14:07 | XMS_ITS | Encounter Summary ---
Author Organization [facility] Address [address] [place] [address] Care Team Providers Care Newspaper Columnist Name Role Phone Stanislaw Marinelli Primary Care Provider [phone] Encounter Details Date Type Department Care Team (Late st Contact Info) Description 10/13/2021 Telephone [facility] Oncology [address] [place] [address] Phoenix Riddle MD [address] [facility] [place] [address] Social History Tobacco Use Types [...] on file Legal Sex Female 6:07 AM BULK STATION AGENT Gender Identity Not on file Sexual [...] st Contact Info) Description 06/18/2025 10:15 AM BULK STATION AGENT Office Visit [facility] Heart and Vascular At [place] [address] [address] [place] [address] Kali Varela MD [address] [address] [place] [address] documented as of this encounter Visit Diagnoses Not on filedocumented in this encounter Additional Health Concerns Infection Onset Date Last Indicated Resolved Time R/O GI Pathogen 09/19/2023 09/19/2023 09/21/2023 7 :33 AM CDT documented as of this encounter Care Teams Newspaper Columnist Relationship Specialty Start Date End Date Stanislaw Marinelli DO 6812 [facility] [address] [facility] [address] [place] [address] PCP - General Internal Medicine 02/22/25 documented as of this encounter
--- OUTSIDE RECORDS SUMMARY | 2025-03-29 14:08 | XMS_ITS | Encounter Summary ---
Author Organization [facility] Address [address] [place] [address] Care Team Providers Care Guide Dog Trainer Name Role Phone Stanislaw Marinelli Primary Care Provider [phone] Encounter Details Date Type Department Care Team (Late st Contact Info) Description 01/28/2025 Results Follow-Up [facility] Heart and Vascular At [address] [place] [address] Angie Blackburn RN [place] MYOCARD [...] on file Legal Sex Female 6:07 AM REVERSING MILL ROLLER Gender Identity Not on file Sexual Orientation Not on file Occupation Industry Job Start Date Job End Date Not on file Not on file Not on file Not on file documented as of this encounter Plan of Treatment Upcoming Encounters Date Type Department Care Team (Late st Contact Info) Description 06/18/2025 10:15 AM REVERSING MILL ROLLER Office Visit [facility] Heart and Vascular At [place] [address] [facility] [address] [place] [address] Kali Varela MD [address] [facility] [address] [place] [address] documented as of this encounter Visit Diagnoses Not on filedocumented in this encounter Care Teams Guide Dog Trainer Relationship Specialty Start Date End Date Stanislaw Marinelli DO 6812 [facility] [address] [place] [address] PCP - General Internal Medicine 02/22/25 documented as of this encounter
--- OUTSIDE RECORDS SUMMARY | 2025-03-29 14:08 | XMS_ITS | Clinical Summary ---
Author Organization [facility] Address [address] [address] Phone Care Team Providers Care Robotics Engineer Name Role Phone Jose G Palmer MD Unavailable [phone] Guerrero Middleton Primary Care Provider Social History [...] to complete this topic Insurance Care Teams Robotics Engineer Relationship Specialty Start Date End Date Guerrero Middleton PAC [address] [facility] [address] [place] [address] PCP - General Physician Emergency Response Officer 12/10/16 Jose G Palmer MD Consulting Physician Gastroenterology 12/10/16
--- OUTSIDE RECORDS SUMMARY | 2025-03-29 14:08 | XMS_ITS | Clinical Summary ---
Author Organization [facility] Address [address] [place] [address] Care Team Providers Care Flower Buncher Or Picker Name Role Phone Mauri Jaime MD Primary Care Provider [phone] Guerrero Middleton PA Unavailable [phone] Allergies Active Allergy Reactions Criticality Noted Date [...] tablet TAKE 1 TABLET BY MOUTH EVERY BOAT OAR MAKER 022 Active fenofibrate (TRIGLIDE) 160 mg tablet [...] History Medical History Date Comments Diabetes mellitus Chylomicronemia syndrome Necrotizing pancreatitis Type 2 diabetes [...] on file Legal Sex Female 5:05 AM VACUUM DRIER OPERATOR Gender Identity Not on file Sexual Orientation Not on file Last Filed Vital Signs Vital Sign Reading Time Taken Comments Blood Pressure 101/62 06/05/2023 11:38 AM VACUUM DRIER OPERATOR Pulse 76 06/05/2023 11:38 AM VACUUM DRIER OPERATOR Temperature 36.4 C (97.5 F) 06/05/2023 10:35 AM VACUUM DRIER OPERATOR Respiratory Rate 22 06/05/2023 11:38 AM VACUUM DRIER OPERATOR Oxygen Saturation 94% 06/05/2023 11:38 AM VACUUM DRIER OPERATOR Inhaled Oxygen Concentration - - Weight 81.6 kg (180 lb) 06/05/2023 8:58 AM VACUUM DRIER OPERATOR Height 165.1 cm (5' 5) 06/05/2023 8:58 AM VACUUM DRIER OPERATOR Body Mass Index 29.95 06/05/2023 8:58 AM VACUUM DRIER OPERATOR Plan of Treatment Health Maintenance Due Date Last Done Comments Breast Cancer Screening-Mammogram 1975 Colon Cancer Screening-Colonoscopy 1975 Depression Screening 1975 Hepatitis C Screening 1975 DTaP/Tdap/Td Vaccine (1 - Tdap) 11/24/1986 Hepatitis B Screening 11/24/1993 Regular Well Visit/Exam 18-64 11/24/1993 Pneumococcal vaccine <65 (2 of 2 - PPSV23, PCV20, or PCV21) 07/04/2016 05/09/2016 Covid-19 Vaccine (5 - 2024-2 6 season) 2024 03/08/2023, 03/04/2021, 07/20/2020, Additional history exists Influenza Vaccine (#1) 2024 , 03/08/2023, 04/09/2022, Additional history exists Insurance ANGY BROOKE [facility] [employer] [facility] [employer] [facility] [employer] Care Teams Flower Buncher Or Picker Relationship Specialty Start Date End Date Mauri Jaime MD [address] [facility] [address] [place] [address] PCP - General Internal Medicine 05/28/23 Guerrero Middleton PA [address] [facility] [address] [place] [address] 05/28/23
--- OUTSIDE RECORDS SUMMARY | 2025-03-29 14:08 | XMS_ITS | Encounter Summary ---
Author Organization [facility] Address [address] [place] [address] Care Team Providers Care Program Clerk Name Role Phone Stanislaw Marinelli Primary Care Provider [phone] Reason for Visit * Reason Onset Date Comments petr rubin 09/13/2021 Encounter Details Date Type Department Care Team (Late st Contact Info) Description 09/13/2021 Telephone [facility] Donor Services [place] [address] [place] [address] Gloria Tristan, RN [facility][note 2] Social History Tobacco Use Types Packs/Day Years [...] on file Legal Sex Female 6:07 AM MEDICAL INSURANCE CLAIMS PROCESSOR Gender Identity Not on file Sexual Orientation [...] st Contact Info) Description 06/18/2025 10:15 AM MEDICAL INSURANCE CLAIMS PROCESSOR Office Visit [facility] Heart and Vascular At [place] [address] [facility] [address] [place] [address] Kali Varela MD [facility] [address] [facility] [address] [place] [address] documented as of this encounter Visit Diagnoses Not on filedocumented in this encounter Additional Health Concerns Infection Onset Date Last Indicated Resolved Time R/O GI Pathogen 09/19/2023 09/19/2023 09/21/2023 7 :33 AM CDT documented as of this encounter Care Teams Program Clerk Relationship Specialty Start Date End Date Stanislaw Marinelli DO 6812 [facility] [address] [place] [address] PCP - General Internal Medicine 02/22/25 documented as of this encounter
--- OUTSIDE RECORDS SUMMARY | 2025-03-29 14:08 | XMS_ITS | Clinical Summary ---
Author Organization [facility] Address [address] [place] [address] Phone Care Team Providers Care Commercial Title Examiner Name Role Phone Stanislaw Marinelli Maxwell REHMAN Primary Care Provider [phone] Allergies Active Allergy Reactions Criticality Noted Date Comments Adhesive Unknown 03/07/2018 Adhesive Tape-Silicones Hives High 02/10/2018 Aspartame Headache Low 05/16/2018 Stephens Pepper Hives High 02/10/2018 Medications traZODone (DESYREL) 100 mg tablet Take 200 mg by mouth daily at bedtime. Active citalopram (CeleXA) 40 mg tablet TAKE 1 TABLET BY MOUTH EVERY DAY 90 Tablet 1 1 Active Additional Information Patient taking differently: 40 mg Oral DAILY AT BEDTIME, Reported on 02/23/2025 fenofibrate (LOFIBRA) 160 mg Tablet TAKE 1 TABLET BY MOUTH EVERY DAY 90 Tablet 2 Active Additional Information Patient taking differently: 160 mg DAILY, Reported on 02/23/2025 pantoprazole (PROTONIX) 40 mg Tablet, Delayed Release (E.C.) Take 40 mg by mouth 2 times daily. Active atorvastatin (LIPITOR) 40 mg tablet Take 80 mg by mouth daily at bedtime. Active aspirin (ECOTRIN EC) 81 mg Tablet, Delayed Release (E.C.) Take 81 mg by mouth daily. Active ondansetron (ZOFRAN ODT) 4 mg Tablet, Rapid Dissolve Take 1 Tablet (4 mg) by mouth every 6 hours as needed for Nausea/Emesis. 30 Tablet 4 Active lipase-protease -amylase DR (Cremorro) 36,000-114,000- 180,000 unit capsule Take 2 Capsules by mouth 3 times daily with meals. 180 Capsule 4 Active Additional Information Patient not taking.Reported on 02/23/2025 metoprolol succinate (TOPROL XL) 25 mg Extended Release 24 hour tablet Take 0.5 Tablets (12.5 mg) by mouth daily. 15 Tablet 4 Active LORazepam (ATIVAN) 1 mg tablet Take 1 mg by mouth nightly as needed for Anxiety or Insomnia. Active metFORMIN (GLUCOPHAGE) 1,000 mg tablet Take 1 Tablet (1,000 mg) by mouth 2 times daily with meals. HOLD for 48h post LHC 4 Active Blood-Glucose Sensor ([employer] G7 Sensor) Device 4 Active buPROPion HCL (WELLBUTRIN SR) 150 mg Sustained Release 12 hour tablet Take 1 Tablet by mouth daily. 4 Active NovoLOG U-100 Insulin aspart 100 unit/mL vial INFUSE 100 UNITS VIA CONTINUOUS SUBCUTANEOUS INFUSION DAILY WITH A MAX DAILY DOSE OF 100 UNITS Active BD Insulin Syringe Ultra-Fine 0.3 mL 31 gauge x 5/16 Syringe 4 Active levothyroxine 200 mcg tablet Take 1 Tablet by mouth daily. 4 Active metoclopramide HCl (REGLAN) 5 mg tablet Take 5 mg by mouth 3 times daily before meals. 4 Active Tryngolza 80 mg/0.8 mL Auto-Injector Monthly , next due 03/01/2025 5 Active nitroglycerin (NITROSTAT) 0.4 mg Tablet, Sublingual Place 1 Tablet (0.4 mg) under tongue every 5 minutes as needed for Chest Pain. 30 Tablet 1 5 Active clopidogreL (PLAVIX) 75 mg Tablet Take 1 Tablet (75 mg) by mouth daily. 100 Tablet 3 5 Active Additional Information Patient not taking.Reported on 02/23/2025 evolocumab (Repatha SureClick) 140 mg/mL Pen Injector Inject 1 mL (140 mg) by subcutaneous injection every 2 weeks. 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 Active Active Problems Patient Care Coordination No te Formatting of this note migh t be different from the original. Marlys Mayer MD--[facility] ([facility] @ ) Problem Noted Date Diagnosed Date HTN (hypertension), benign 02/23/2025 Unresponsive episode 02/23/2025 History of heart artery stent 02/23/2025 Type 2 diabetes mellitus wit h hyperglycemia, with long-term current use of insulin 02/23/2025 Acute non intractable tension-type headache 01/28 Syncope and collapse 09/19/2023 Coronary artery disease invo lving iqugmiut coronary artery of iqugmiut heart without angina pectoris 09/19/2023 Severe episode of recurrent major depressive disorder, without psychotic features 09/17/2021 Allergic reaction caused by a drug 08/24/2021 Precordial pain 08/24/2021 Moderate protein-calorie malnutrition 02/22/2020 Acute pancreatitis 02/15/2020 Acute on chronic pancreatitis 04/12/2019 Left upper quadrant pain 10/28/2018 Acquired hypothyroidism 10/28/2018 Recurrent pancreatitis 10/28/2018 Hyponatremia 03/08/2018 Gastroesophageal reflux disease without esophagi tis 03/08/2018 Tobacco use 03/07/2018 Type 2 diabetes mellitus wit hout complication, with long-term current use of insulin 03/07/2018 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 Hypertriglyceridemia 12/04/2017 Depression with anxiety 12/04/2017 Hypothyroidism 12/21/2011 Metabolic syndrome 05/15/2011 History of gestational diabetes 05/15/2011 Family history of diabetes mellitus 05/15/2011 Family history of early CAD 05/15/2011 PCOS (polycystic ovarian syndrome) 05/15/2011 Abdominal pain History of plasmapheresis Mixed hyperlipidemia History of pancreatitis Other chronic pancreatitis Suicide ideation Resolved Problems Problem Noted Date Diagnosed Date [...] type 2 diabetes mellitus with hyperglycemia 07/03/2022 Type 1 diabetes mellitus wit hout complications 02/23/2025 Encounters Date Type Department Care Team Description 03/03/2025 External Device Data STL ABSTRACTION Provider, Abstract 03/02/2025 External Device Data STL ABSTRACTION Provider, Abstract 02/25/2025 3:08 PM CDT - 02/25/2025 11:59 PM CDT Hospital Encounter [facility] Non Invasive Cardiology [address] [place] [address] Bronwyn Hernandez MD Discharge Disposition: Home or Self Care 02/24/2025 External Device Data STL ABSTRACTION Provider, Abstract 02/24/2025 Travel 02/23/2025 3:05 PM CDT - 02/25/2025 2:36 PM CDT Hospital Encounter [facility] Neurosurgery [address] [place] [phone] Pernell Gonzalez MD Jeliazkova, Iana, MD Hilliard, Bronwyn Welch MD Chylomicronemia syndrome Discharge Disposition: Home or Self Care 02/05/2025 Abstract [facility] - [address] [place] [address] Marlys Mayer MD 01/28/2025 Results Follow-Up [facility] [address] [place] [phone] Angie Blackburn RN NM MYOCARD PERF IMAG SPECT MULT 01/27/2025 8:58 AM CDT - 01/27/2025 11:59 PM CDT Hospital Encounter [facility] Nuclear Medicine [address] [place] [phone] Marlys Mayer MD Discharge Disposition: Home or Self Care 01/27/2025 8:58 AM CDT - 01/27/2025 11:59 PM CDT Hospital Encounter [facility] Nuclear Medicine [address] [facility] [place] [address] Marlys Mayer MD Discharge Disposition: Home or Self Care 01/22/2025 Refill [facility] [address] [place] [address] Marlys Mayer MD 01/18/2025 3:00 PM CDT Office Visit [facility] - [facility] [address] [place] [phone] Marlys Mayer MD Chylomicronemia syndrome (Primary Dx); Coronary artery disease involving iqugmiut coronary artery of iqugmiut heart without angina pectoris; Mixed hyperlipidemia; Type 1 diabetes mellitus without complication (CMS/HCC); Chronic recurrent pancreatitis (CMS/HCC); Type 1 diabetes mellitus without complications ([facility]/HCC) 12/30/2024 External Device Data STL ABSTRACTION Provider, [...] things needed for daily living? No 08/21/2018 Food Insecurity Answer Date Recorded Do you find you are eating l ess than you should because you can t pay for food? No 02/24/2025 Transportation Needs Answer Date Record ed Have you gone without health care because you didn t have a way to get there? Or worry about transportation for future doctor visits, sweet pickled fruit maker medication, etc.? No 2024 Housing Stability Answer Date Recorded Do you worry you won t have a steady place to sleep or struggle to pay rent or mortgage? No 02/24/2025 Utility Needs Answer Date Recorded Do you have difficulty payin g for utility costs (electric, water or gas bills)? No 02/24/2025 Medication Needs Answer Date Recorded Have you skipped taking medi cation due to cost or worry you can t afford new medications? No 02/24/2025 Feeling Safe Answer Date Recorded Are you in a relationship wi th someone who hurts you emotionally and/or physically? 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 Gender Identity Not on file Sexual Orientation Not on file Occupation Industry Job Start Date Job End Date Not on file Not on file Not on file Not on file Last Filed Vital Signs Vital Sign Reading Time Taken Comments Blood Pressure 115/88 02/25/2025 12:38 PM CDT Pulse 73 02/25/2025 12:38 PM CDT Temperature 36.8 C (98.3 F) 02/25/2025 12:38 PM CDT Respiratory Rate 18 02/25/2025 12:38 PM CDT Oxygen Saturation 98% 02/25/2025 12:38 PM CDT Inhaled Oxygen Concentration - - Weight 81.2 kg (179 lb) 02/24/2025 9:20 AM CDT Height 165.1 cm (5' 5) 02/24/2025 9:20 AM CDT Body Mass Index 29.79 02/24/2025 9:20 AM CDT Plan of Treatment Upcoming Encounters Date Type Department Care Team (Late st Contact Info) Description 06/18/2025 10:15 AM TRAFFIC WAREHOUSE SUPERVISOR Office Visit [facility] [place] [address] [place] [address] Kali Varela MD [facility] [address] [facility] [address] [place] [phone] Health Maintenance Due Date Last Done Comments [...] FOOT EXAM 05/04/2021 05/04/2020 INFLUENZA VACCINE (#1) 2024 0, 02/02/2019, 02/12/2018, Additional history exists COVID-19 Vaccine (2 - 2024-2 6 season) 2024 03/08/2023 DIABETES HBA1C Q 6 MONTHS 08/25/20252024, 09/18/2023, 08/24/2021, Additional history exists LDL CHOLESTEROL ANNUAL 02/24/2026 5, 09/19/2023, 08/25/2021, Additional history exists Medical Devices Implanted Type Area Clothes Drier Repairer Device Identifier Shelf Expiration Date Model / Serial / Lot Cath Hemodlys Glidespath 23cm [id number] Implanted:Qty : 1 on 04/10/2018 by Kayla Sheffield MD Catheter CR BARD[employer] [id number] 08/27/2019 [id number] / / [id number] Description:14.5fr x 23cm; R IJ Port-10/29/2018 Implanted:Qty : 2 on 10/29/2018 by Laverne Willoughby MD Explanted:Qty : 1 on 02/18/2019 by Michael Powell MD Port Right: Chest Wall CR BARD- ACCESS SYS 07/28/2019 / / [id number] Description:two 9.6fr fower flow apheresis ports placed by Dr. Willoughby Port- 0 Implanted:Qty : 1 on 05/11/2019 by Alfa Forrest MD Port Left: Chest Wall CR BARD- ACCESS SYS 08/26/2020 / / [id number] Stent Synergy Xd 4.0x12mm Evrlms Elut [id number] - [id number] Implanted:Qty : 1 on 11/29/2023 by Miguel Lewis MD at [facility] Stent N/A: Coronary [employer] GRISELDA [id number] 03/19/2024 [id number] / / [id number] Procedures Procedure Name Priority Date/Time Associated Diagnosis Comments CARDIAC EVENT MONITOR Routine 03/26/2025 6:00 AM TRAFFIC WAREHOUSE SUPERVISOR Unresponsive episode POC GLUCOSE Routine 02/25/2025 12:36 PM CDT POC GLUCOSE Routine 02/25/2025 9:42 AM CDT EEG Routine 02/24/2025 9:06 PM CDT POC GLUCOSE Routine 02/24/2025 6:04 PM CDT POC GLUCOSE Routine 02/24/2025 12:42 PM CDT POC GLUCOSE Routine 02/24/2025 9:33 AM CDT MRI BRAIN W WO CONTRAST Routine 02/25/20 8:27 AM CDT MAGNESIUM LEVEL Routine 02/24/2025 4:09 AM CDT T4 FREE Routine 02/24/2025 4:09 AM CDT TSH Routine 02/24/2025 4:09 AM CDT LIPID PANEL Routine 02/24/2025 4:09 AM CDT HEMOGLOBIN A1C Routine 02/24/2025 4:09 AM CDT CBC WITH DIFFERENTIAL Routine 02/24/2025 4:09 AM CDT BASIC METABOLIC PANEL Routine 02/24/2025 4:09 AM CDT POC GLUCOSE Routine 02/23/2025 10:37 PM CDT POC GLUCOSE Routine 02/23/2025 6:30 PM CDT PT EVAL AND TREAT Routine 02/23/2025 5:2 1 PM CDT OT EVAL AND TREAT Routine 02/23/2025 5:2 1 PM CDT POC GLUCOSE Routine 02/23/2025 3:14 PM CDT NM MYOCARD PERF IMAG SPECT MULT Routine 01/27/2025 12:50 PM CDT Chylomicronemia syndrome Mixed hyperlipidemia Coronary artery disease involving iqugmiut coronary artery of iqugmiut heart without angina pectoris Type 1 diabetes mellitus without complications Chronic recurrent pancreatitis (CMS/HCC) HM EJECTION FRACTION Routine 01/27/2025 12:50 PM CDT NM PHARMACOLOGICAL STRESS TEST Routine 01/27/2025 11:36 AM CDT Coronary artery disease involving iqugmiut coronary artery of iqugmiut heart without angina pectoris Chylomicronemia syndrome Mixed hyperlipidemia Chronic recurrent pancreatitis (CMS/HCC) from Last 3 Months Results * CARDIAC EVENT MONITOR (03/26/2025 6:00 AM TRAFFIC WAREHOUSE SUPERVISOR) 03/26/2025 6:00 AM TRAFFIC WAREHOUSE SUPERVISOR Narrative INTERFACE SYSTEM - 03/28/2025 2:34 PM TRAFFIC WAREHOUSE SUPERVISOR [facility] [address] , [place] [address] Test Date: 2025-03-26 Pat Name: LINDA DOSS Department: Room: [facility] Gender: F Sleep Tech: : 1975 Requested By: PERNELL GONZALEZ Order Number: [id number] Nato CARNEY: Malcom Blackburn Interpretive Statements Patient monitored for 2d 1h 17m PACs were not found during the monitoring period PVCs were not found during the monitoring period There were no patient-triggered events There were no atrial fibrillation events, pauses, or advanced AV block Electronically Signed On 03-28-2025 14:34:44 TRAFFIC WAREHOUSE SUPERVISOR by Malcom Blackburn Procedure Note Malcom Blackburn MD - 03/28/2025 [facility] [address] [place] [address] Test Date: 2025-03-26 Pat Name: LINDA DOSS Department: Room: [facility] Gender: F Sleep Tech: : 1975 Requested By: PERNELL GONZALEZ Order Number: [id number] Nato MD: Malcom Blackburn Interpretive Statements Patient monitored for 2d 1h 17m PACs were not found during the monitoring period PVCs were not found during the monitoring period There were no patient-triggered events There were no atrial fibrillation events, pauses, or advanced AV block Electronically Signed On 03-28-2025 14:34:44 TRAFFIC WAREHOUSE SUPERVISOR by Malcom Blackburn Bronwyn Hernandez MD CARDIAC SERVICES ORDERA BLES Final Result INTERFACE SYSTEM Refer to clinic/hospital department * (ABNORMAL) POC GLUCOSE (02/25/2025 12:36 PM CDT) Only the most recent of8 resultswithin the time period is included. GLUCOSE POC 122(H) 74 - 99 mg/dL 02/25/2025 12:36 PM CDT [facility] SPECIMEN SOURCE, GLUCOSE POC Whole Blood 02/25/2025 12:36 PM CDT [facility] COMMENT, GLU POC Alerted Nurse/ISMAEL/D r 02/25/2025 12:36 PM CDT [facility] Blood, whole 02/25/2025 12:3 6 PM CDT 02/25/2025 1:05 PM CDT us Bronwyn Hernandez MD POINT OF CARE TESTING F inal Result [facility]# [id number] [address] [place] [address] * EEG (02/24/2025 9:06 PM CDT) Narrative Andrew Hsieh MD - 02/24/2025 9:06 PM CDT Andrew Hsieh MD 02/24/2025 9:08 PM Routine EEG Report Patient Name: Linda Doss [facility] Medical Record Number (MRN): [id number] Date of (): 1975 EEG Date: 02/24/2025 Introduction: Ms. Doss is a 49 y.o. female . Reason for the study: Mental status change. This is a 20 channel EEG utilizing the international 10/20 system. The analog EEG was filtered from 1-70 Hz and digitally sampled at 200 Hz. The record was then reformatted for review in bipolar and referential montages. EEG Description: The awake background included a 10-11 hz posterior rhythm when most alert. The patient drifted in and out of drowsiness, and appropriate slowing was noted. Hyperventilation was not performed. Photic strobe stimulation elicited no additional abnormalities. There were no focal, lateralized or epileptiform abnormalities. The patient's EKG showed a sinus rhythm. Interpretation: This EEG done during the patient's wakefulness and drowsiness showed no significant abnormality. Alma Hsieh MD Neurology us Angie Louis MD NEUROLOGY ORDERABLES Final Re sult * MRI BRAIN W WO CONTRAST (02/24/2025 8:27 AM CDT) Anatomical Region Laterality Modality Head Magnetic Resonan ce 02/24/2025 9:01 AM CDT Impressions 02/24/2025 9:10 AM CDT IMPRESSION: Normal brain MRI. DICTATION LOCATION: Location 1 - [facility] Narrative 02/24/2025 9:10 AM CDT MRI BRAIN W WO CONTRAST Date: 02/24/2025 8:27 AM Indication: unresponssive episode Comparison: None. Technique: Multiplanar multisequence MRI of the brain was performed with and without intravenous contrast using the brain tumor protocol. CONTRAST: GADOTERIDOL 279.3 MG/ML INTRAVENOUS SOLUTION Given:15 mL Findings: No acute infarct. No acute or chronic hemorrhage. The ventricles are normal in size and configuration without hydrocephalus. No abnormal enhancement. The scalp and calvarium are normal. The pituitary and sella are normal. No Chiari malformation. The visualized upper cervical spine is normal. The visualized orbits and globes are normal. Maxillary sinus mucous retention cyst. The mastoid air cells are clear. Normal flow voids within the vertebral, basilar, and internal carotid arteries indicating patency. Procedure Note Andrew Adhikari MD - 02/24/2025 MRI BRAIN W WO CONTRAST Date: 02/24/2025 8:27 AM Indication: unresponssive episode Comparison: None. Technique: Multiplanar multisequence MRI of the brain was performed with and without intravenous contrast using the brain tumor protocol. CONTRAST: GADOTERIDOL 279.3 MG/ML INTRAVENOUS SOLUTION Given:15 mL Findings: No acute infarct. No acute or chronic hemorrhage. The ventricles are normal in size and configuration without hydrocephalus. No abnormal enhancement. The scalp and calvarium are normal. The pituitary and sella are normal. No Chiari malformation. The visualized upper cervical spine is normal. The visualized orbits and globes are normal. Maxillary sinus mucous retention cyst. The mastoid air cells are clear. Normal flow voids within the vertebral, basilar, and internal carotid arteries indicating patency. IMPRESSION: Normal brain MRI. DICTATION LOCATION: Location 1 - [facility] Angie Louis MD MR ORDERABLES Final Result * (ABNORMAL) CBC WITH DIFFERENTIAL (02/24/2025 4:09 AM CDT) WBC 5.7 4.0 - 9.8 K/uL 02/24/2025 5:05 AM CDT [facility] RBC 3.97 3.90 - 4.90 M/uL 02/24/2025 5:05 AM CDT [facility] HEMOGLOBIN 11.9 11.8 - 14.8 g/dL 02/24/2025 5:05 AM [employer] - [facility] HEMATOCRIT 35.7 35.5 - 44.0 % 02/24/2025 5:05 AM CDT [facility] - [facility] MCV 89.9 82.0 - 99.0 fL 02/24/2025 5:05 AM [employer] - . [facility] MCH 30.0 27.2 - 32.6 pg 02/24/2025 5:05 AM CDT [facility] - . [facility] MCHC 33.3 31.5 - 35.5 g/dL 02/24/2025 5:05 AM [employer] - [facility] RDW 14.7(H) 11.5 - 14.5 % 02/24/2025 5:05 AM [facility] - . [facility] RDW-STDEV 49.2(H) 37.1 - 48.7 fL 02/24/2025 5:05 AM [facility] - [facility] PLATELETS 175 140 - 350 K/uL 02/24/2025 5:05 AM [facility] - [facility] MPV 9.3 9.3 - 12.4 fL 02/24/2025 5:05 AM [facility] - . [facility] NEUTROPHILS 54 % 02/24/2025 5:05 AM [facility] - . [facility] LYMPHOCYTES 37 % 02/24/2025 5:05 AM [facility] - . [facility] MONOCYTES 7 % 02/24/2025 5:05 AM [employer] [facility] - . [facility] EOSINOPHILS 1 % 02/24/2025 5:05 AM [facility] - . [facility] BASOPHILS 1 % 02/24/2025 5:05 AM [facility] - . [facility] IMMATURE GRANULOCYTES 1 % 02/24/2025 5:05 AM [facility] - . [facility] Comment:IG (Immature Granulo cyte) count includes Metamyelocytes, Myelocytes, and Promyelocytes NEUTROPHIL ABSOLUTE 3.05 1.90 - 7.00 K/uL 02/24/2025 5:05 AM CDT [facility] - . [facility] LYMPHOCYTE ABSOLUTE 2.12 0.70 - 4.50 K/uL 02/24/2025 5:05 AM CDT [facility] - . [facility] MONOCYTE ABSOLUTE 0.39 0.10 - 1.30 K/uL 02/24/2025 5:05 AM CDT [facility] - [facility] EOSINOPHIL ABSOLUTE 0.05 0.00 - 0.70 K/uL 02/24/2025 5:05 AM CDT [facility] - [facility] BASOPHILS ABSOLUTE 0.03 0.00 - 0.20 K/uL 02/24/2025 5:05 AM CDT [facility] - . [facility] IMMATURE GRANULOCYTES ABSOLUTE 0.03 0.00 - 0.03 K/uL 02/24/2025 5:05 AM CDT [facility] - [facility] Blood Venipuncture / Unknown 02/24/2025 4:09 AM CDT 02/24/2025 4:32 AM CDT Angie Louis MD HEMATOLOGY ORDERABLES Final R esult [facility] CLIA# [id number] [address] [place], [place] [id number] * (ABNORMAL) TSH (02/24/2025 4:09 AM CDT) Pathologist [facility] TSH 14.70(H) 0.27 - 4.20 uIU/mL 02/24/2025 10:24 AM CDT [facility] Blood Venipuncture / Unknown 02/24/2025 4:09 AM CDT 02/24/2025 4:31 AM CDT us Tami GRIDER CHEMISTRY ORDERABLES Final Result [facility] CLIA# [id number] [address] [place], [place] [address] * (ABNORMAL) T4 FREE (02/24/2025 4:09 AM CDT) T4 FREE 0.80(L) 0.90 - 1.70 ng/dL 02/24/2025 1:32 PM CDT [facility] Blood Venipuncture / Unknown 02/24/2025 4:09 AM CDT 02/24/2025 4:31 AM CDT [facility] ANP CHEMISTRY ORDERABLES Final Result Performing Organization Address [facility]/ZIP Co de Phone Number [facility] CLIA# [id number] [address] [place] [address] [place] [place] [address] * MAGNESIUM LEVEL (02/24/2025 4:09 AM CDT) Pathologist [facility] MAGNESIUM 1.7 1.6 - 2.6 mg/dL 02/24/2025 1:32 PM CDT [facility] Blood Venipuncture / Unknown 02/24/2025 4:09 AM CDT 02/24/2025 4:31 AM CDT Tami Mayo ANP CHEMISTRY ORDERABLES Final Result Performing Organization Address [facility] de Phone Number [facility] [id number] [facility] [place] [address] * (ABNORMAL) HEMOGLOBIN A1C (02/24/2025 4:09 AM CDT) HEMOGLOBIN A1C 9.2(H) <5.7 % 02/24/2025 5:04 AM CD[address] [facility] EST. AVG GLUCOSE, A1C 217 mg/dL 02/24/2025 5:04 AM CDT [facility] Blood Venipuncture / Unknown 02/24/2025 4:09 AM CDT 02/24/2025 4:32 AM CDT Narrative [facility] - 02/24/2025 5:04 AM CDT HGB A1C INTERPRETATION NORMAL: <5.7% PRE-DIABETES: 5.7 - 6.4% DIABETES: 6.5% OR GREATER us Angie Louis MD CHEMISTRY ORDERABLES Final Re sult [facility] [employer] [facility]# [id number] [address] [place] [address] * LIPID PANEL (02/24/2025 4:09 AM CDT) [facility] CHOLESTEROL 164 <200 mg/dL 02/24/2025 5:18 AM CDT [employer] [facility] [facility] TRIGLYCERIDE 123 <150 mg/dL 02/24/2025 5:18 AM CDT [facility] [employer] [facility] HDL 43 40 - 59 mg/dL 02/24/2025 5:18 AM T [facility] [employer] [facility] LDL CALCULATED 96 <100 mg/dL 02/24/2025 5:18 AM T [facility] [employer] [facility] NON-HDL CHOLESTEROL 121 <130 mg/dL 02/24/2025 5:18 AM T [facility] [employer] [facility] Blood Venipuncture / Unknown 02/24/2025 4:09 AM CDT 02/24/2025 4:31 AM CDT Narrative [facility] - 02/24/2025 5:18 AM CDT TOTAL CHOLESTEROL mg/dL Desirable <200 Borderline high 200-239 High >=240 TRIGLYCERIDES mg/dL Normal <150 Borderline high 150-199 High 200-499 Very high >=500 HDL CHOLESTEROL mg/dL Low <40 Normal 40-59 Desirable >=60 NON HDL CHOLESTEROL mg/dL Optimal <130 Near Optimal 130-159 Borderline High 160-189 Very High >=190 CALCULATED LDL mg/dL LDL <70, OPTIMAL if have Atherosclerotic cardiovascular disease (ASCVD) or intermediate or higher (>7.5%) 10 year risk of ASCVD including most adults with diabetes. LDL <100, Optimal in adult patients with low (<7.5%) 10 year ASCVD risk LDL 100-160, Suboptimal LDL >160, High LDL >190, Very high LDL calculated using the Friedewald equation. ATPIII Guidelines Reference Ranges for Lipid Panels (NCEP/AMA) . Angie Louis MD CHEMISTRY ORDERABLES Final Re sult [facility] KARLEE# [id number] [address] [place] [address] * (ABNORMAL) BASIC METABOLIC PANEL (02/24/2025 4:09 AM CDT) SODIUM 139 136 - 145 mmol/L 02/24/2025 5:18 AM [facility] [employer] [facility] POTASSIUM 4.1 3.5 - 5.0 mmol/L 02/24/2025 5:18 AM [facility] [employer] [facility] CHLORIDE 105 98 - 107 mmol/L 02/24/2025 5:18 AM [facility] CO2 27 22 - 29 mmol/L 02/24/2025 5:18 AM [facility] [employer] [facility] CALCIUM 8.5(L) 8.6 - 10.2 mg/dL 02/24/2025 5:18 AM [facility] [employer] [facility] BUN 11 6 - 20 mg/dL 02/24/2025 5:18 AM [facility] [facility] CREATININE 0.77 0.51 - 0.95 mg/dL 02/24/2025 5:[address] [facility] GLUCOSE 104(H) 74 - 99 mg/dL 02/24/2025 5:18 AM [facility] [employer] GFR >60 >=60 mL/min/1.7 3 sq meter 02/24/2025 5:18 AM [facility] Comment:eGFR calculated with 2020 CKD-EPI equation. Vegetarian diet, extremely high or low muscle mass, and may affect results. Cystatin C with Glomerular Filtration Rate is a suitable alternative for these patients. ANION GAP 7(L) 8 - 16 mmol/L 02/24/2025 5:18 AM [facility] Blood Venipuncture / Unknown 02/24/2025 4:09 AM CDT 02/24/2025 4:31 AM CDT us Angie Louis MD CHEMISTRY ORDERABLES Final Re sult [facility]# [id number] [address] [place] [address] * NM MYOCARD PERF IMAG SPECT MULT [...] for comparison. Recommendations: Clinical correlation is recommended. us [facility] RAMOS ORDERABLES Final Result INTERFACE SYSTEM Refer to clinic/hospital department * (ABNORMAL) HM EJECTION FRACTION (01/27/2025 12:50 PM CDT) [facility] Signature EJECTION FRACTION 66(A) 50 - 65 % us Historical Provider HEALTH MAINTENANCE Final Res ult * NM PHARMACOLOGICAL STRESS TEST (01/27/2025 11:36 AM CDT) Narrative 01/27/2025 11:36 AM CDT Order information only. Exam was auto-finalized. us Marlys RAMOS ORDERABLES Final Result from Last 3 Months Insurance RX MEDRANO PLANS (INTERNAL) [facility] RX MEDRANO PLANS (INTERNAL) [facility] [employer] [facility] RX [employer] RX Member Subscriber Plan / Payer (Ef fective 2025-Present) Name:Linda Doss Relation to Subscriber:Self Name:Linda Doss Subscriber ID:Not on file Payer ID:Not on file Group ID:[id number] Type:RX Medicare Part D Address: [facility] [employer], [facility] Commercial [facility] [id number] [facility] AARP [id number] Advance Directives For more information, please contact: [phone] * Full Code (Latest Code Status on File) Date Activated Date Inactivated Comments 02/23/2025 5:21 PM 02/25/2025 4:41 PM * Full Code Date Activated Date Inactivated Comments 11/29/2023 10:46 AM 11/29/2023 8:31 PM * Full Code Date Activated Date Inactivated Comments 09/19/2023 8:02 AM 09/26/2023 8:45 PM * Full Code Date Activated Date Inactivated Comments 09/13/2021 11:45 PM 09/20/2021 8:57 PM * Full Code Date Activated Date Inactivated Comments 08/24/2021 3:04 PM 08/26/2021 4:03 PM Care Teams Commercial Title Examiner Relationship Specialty Start Date End Date Stanislaw Marinelli DO [address] [facility] [address] [facility] [address] [place] [address] PCP - General Internal Medicine 02/22/25
[2025-03-29 14:09] LABS: Free T4 Free Thyroxine 1.96 ng/dL (0.78-2.19)
[2025-03-29 14:29] LABS: Thyroid Stimulating Hormone 1.990 uIU/mL (0.465-4.680)
== END 2025-03-29 12:58 | disposition home or self-care (01) ==
PROVIDERS: PCP Nurse Practitioner; Visit Provider Internal Medicine
DX: E83.51 Hypocalcemia (principal)
CPT/HCPCS: 36415; 84439; 84443

== ENCOUNTER 2025-04-08 19:02 | Emergency (ER) | payer MEDICARE, SELFPAY ==
--- NOTE | ~2025-04-08 | XR_ITS ---
EXAMINATION: XR chest 2V DATE: 04/08/2025 19:38 INDICATION: Weakness. TECHNIQUE: Frontal and lateral views of the chest were obtained. COMPARISON: None. FINDINGS: Heart size is normal. Lungs are clear of acute processes. Port catheters are in place from both sides. IMPRESSION: 1. No acute pulmonary findings. Reviewed, dictated and finalized at location T. RATORY TECHNOLOGIST
--- NOTE | 2025-04-08 19:15 | ECG_ITS ---
Test Date: 2025-04-08 19:16:58 Measurements Intervals [place] Rate: 85 P: 50 VT: 157 QRS: 50 QRSD: 80 T: 16 QT: 354 QTc: 423 Interpretive Statements SINUS RHYTHM MINIMAL Q WAVES- INFERIOR LEADS BORDERLINE ECG Compared to ECG 02/22/2025 22:32:11 No significant changes Electronically Signed On 04-08-2025 20:40:39 COMPENSATION AND BENEFITS ADVISOR by Baron Bowers D.O.
[2025-04-08 19:18] VITALS: O2SAT 100
[2025-04-08 19:20] VITALS: BP 100/68; PULSE 80; PULSE 82; RESP 23; RESP 25; TEMP 36.4; O2SAT 97; O2SAT 98
[2025-04-08 19:30] LABS: Hematocrit 40.3 % (37.0-47.0); Hemoglobin 13.6 g/dL (12.0-15.0); Immature Granulocyte Percent A 0.9 % (0-0.5); Lymphocytes Absolute Auto 2.67 K/mm3 (0.9-3.2); Mean Corpuscular HGB Conc 33.7 g/dl (32-36); Mean Corpuscular Hemoglobin 30.4 pg (26-34); Mean Corpuscular Volume 90.2 fl (80-100); Nucleated Red Blood Cells Absolute Auto 0.000 K/mm3 (0.0-0.012); Nucleated Red Blood Cells Perc 0.0 % (0.0-0.2); Platelet Count Result 262 k/mm3 (150-375); Red Blood Count 4.47 M/mm3 (4.2-5.4); White Blood Count 9.1 K/mm3 (4.5-10.0)
--- OUTSIDE RECORDS SUMMARY | 2025-04-08 19:41 | XMS_ITS | Encounter Summary ---
Author Organization [facility] Address [address] [place] [address] Care Team Providers Care Oyster Preparer Name Role Phone Stanislaw Marinelli Primary Care Provider [phone] Reason for Visit * Reason Onset Date Comments [place] Port flush 11/16/2021 Attempted to patel ch pt due to needing bard port flushes Encounter Details Date Type Department Care Team (Late st Contact Info) Description 11/16/2021 Telephone [facility] Oncology [address] [place] [address] Nicole Rosas MD [address] [place] [address] [place] Port flush (Attempted to [...] on file Legal Sex Female 6:07 AM HANDBAG DESIGNER Gender Identity Not on file Sexual Orientation Not on file Occupation Industry Job Start Date Job End Date Not on file Not on file Not on file Not on file documented as of this encounter Plan of Treatment Upcoming Encounters Date Type Department Care Team (Late st Contact Info) Description 06/18/2025 10:15 AM HANDBAG DESIGNER Office Visit [facility] Heart and Vascular At [place] [address] [facility] [address] [place] [address] Kali Varela MD [facility] [address] [facility] [address] [place] [address] documented as of this encounter Visit Diagnoses Not on filedocumented in this encounter Additional Health Concerns Infection Onset Date Last Indicated Resolved Time R/O GI Pathogen 09/19/2023 09/19/2023 09/21/2023 7 :33 AM CDT documented as of this encounter Care Teams Oyster Preparer Relationship Specialty Start Date End Date Stanislaw Marinelli DO [address] [facility] [address] [place] [address] PCP - General Internal Medicine 02/22/25 documented as of this encounter
--- OUTSIDE RECORDS SUMMARY | 2025-04-08 19:41 | XMS_ITS | Encounter Summary ---
Author Organization [facility] Address [address] [place] [address] Care Team Providers Care Tomb Maker Helper Name Role Phone Stanislaw Marinelli Primary Care Provider [phone] Encounter Details Date Type Department Care Team (Late st Contact Info) Description 01/04/2022 Telephone [facility] Donor Services [facility] [address] [place] [address] [place] Riddle MD [address] [facility] [place] [address] Social History Tobacco Use Types [...] on file Legal Sex Female 6:07 AM DOUPER Gender Identity Not on file Sexual Orientation [...] st Contact Info) Description 06/18/2025 10:15 AM DOUPER Office Visit [facility] Heart and Vascular At [place] [address] [facility] [address] [place] [address] Kali Varela MD [facility] [address] [place] [address] documented as of this encounter Visit Diagnoses Not on filedocumented in this encounter Additional Health Concerns Infection Onset Date Last Indicated Resolved Time R/O GI Pathogen 09/19/2023 09/19/2023 09/21/2023 7 :33 AM CDT documented as of this encounter Care Teams Tomb Maker Helper Relationship Specialty Start Date End Date Stanislaw Marinelli DO [address] [facility] [address] [place] [address] PCP - General Internal Medicine 02/22/25 documented as of this encounter
--- OUTSIDE RECORDS SUMMARY | 2025-04-08 19:41 | XMS_ITS | Encounter Summary ---
Author Organization [facility] Address [address] [place] [address] Care Team Providers Care Practice Clinician Name Role Phone Stanislaw Marinelli Primary Care Provider [phone] Encounter Details Date Type Department Care Team (Late st Contact Info) Description 11/30/2021 Telephone [facility] Donor Services [address] [address] Nicole Rosas MD [address] [place] [address] Social History Tobacco Use Types [...] on file Legal Sex Female 6:07 AM SIDEWALK INSPECTOR Gender Identity Not on file Sexual Orientation Not on file Occupation Industry Job Start Date Job End Date Not on file Not on file Not on file Not on file documented as of this encounter Plan of Treatment Upcoming Encounters Date Type Department Care Team (Late st Contact Info) Description 06/18/2025 10:15 AM SIDEWALK INSPECTOR Office Visit [facility] Heart and Vascular At [facility] [address] [place] [address] Kali Varela MD [address] [place] [address] documented as of this encounter Visit Diagnoses Not on filedocumented in this encounter Additional Health Concerns Infection Onset Date Last Indicated Resolved Time R/O GI Pathogen 09/19/2023 09/19/2023 09/21/2023 7 :33 AM CDT documented as of this encounter Care Teams Practice Clinician Relationship Specialty Start Date End Date Stanislaw Marinelli DO [address] [facility] 162 [facility] [address] [place] [address] PCP - General Internal Medicine 02/22/25 documented as of this encounter
--- OUTSIDE RECORDS SUMMARY | 2025-04-08 19:41 | XMS_ITS | Encounter Summary ---
Author Organization [facility] Address [address] [place] [address] Care Team Providers Care Network Project Manager Name Role Phone Stanislaw Marinelli Maxwell REHMAN Primary Care Provider [phone] Encounter Details Date Type Department Care Team (Late st Contact Info) Description 03/14/2022 Telephone [facility] Donor Services [facility] [address] [place] [address] [place] Riddle MD [address] [facility] [place] [address] Social History Tobacco Use Types [...] on file Legal Sex Female 6:07 AM PAINTER SPRING Gender Identity Not on file Sexual Orientation Not on file Occupation Industry Job Start Date Job End Date Not on file Not on file Not on file Not on file documented as of this encounter Plan of Treatment Upcoming Encounters Date Type Department Care Team (Late st Contact Info) Description 06/18/2025 10:15 AM PAINTER SPRING [facility] At [facility] [address] [place] [address] Kali Varela MD [address] [place] [address] documented as of this encounter Visit Diagnoses Not on filedocumented in this encounter Additional Health Concerns Infection Onset Date Last Indicated Resolved Time R/O GI Pathogen 09/19/2023 09/19/2023 09/21/2023 7 :33 AM CDT documented as of this encounter Care Teams Network Project Manager Relationship Specialty Start Date End Date Stanislaw Marinelli DO [address] [facility] 162 [facility] [address] [place] [address] PCP - General Internal Medicine 02/22/25 documented as of this encounter
--- OUTSIDE RECORDS SUMMARY | 2025-04-08 19:41 | XMS_ITS | Encounter Summary ---
Author Organization [facility] Address [address] [place] [address] Care Team Providers Care Entry Level Software Developer Name Role Phone Stanislaw Marinelli Primary Care Provider [phone] Encounter Details Date Type Department Care Team (Late st Contact Info) Description 10/26/2021 Telephone [facility] Donor Services [address] [address] Nicole Rosas MD [address] [place] [address] Social History Tobacco Use Types [...] on file Legal Sex Female 6:07 AM IT TECHNICIAN Gender Identity Not on file Sexual Orientation Not on file Occupation Industry Job Start Date Job End Date Not on file Not on file Not on file Not on file documented as of this encounter Plan of Treatment Upcoming Encounters Date Type Department Care Team (Late st Contact Info) Description 06/18/2025 10:15 AM IT TECHNICIAN Office Visit [facility] Heart and Vascular At [facility] [address] [place] [address] Kali Varela MD [address] [facility] [place] [address] documented as of this encounter Visit Diagnoses Not on filedocumented in this encounter Additional Health Concerns Infection Onset Date Last Indicated Resolved Time R/O GI Pathogen 09/19/2023 09/19/2023 09/21/2023 7 :33 AM CDT documented as of this encounter Care Teams Entry Level Software Developer Relationship Specialty Start Date End Date Stanislaw Marinelli DO 68[address] [facility] 162 [facility] [address] [place] [address] PCP - General Internal Medicine 02/22/25 documented as of this encounter
--- OUTSIDE RECORDS SUMMARY | 2025-04-08 19:41 | XMS_ITS | Encounter Summary ---
Author Organization [facility] Address [address] [place] [address] Care Team Providers Care Associate Professor Of Art History Name Role Phone Stanislaw Marinelli Primary Care Provider [phone] Encounter Details Date Type Department Care Team (Late st Contact Info) Description 12/08/2021 Telephone [facility] Donor Services [facility] [address] [place] [address] [place] Riddle MD [address] [facility] [place] [address] Social History Tobacco Use Types [...] on file Legal Sex Female 6:07 AM AERIAL PHOTOGRAPHER Gender Identity Not on file Sexual Orientation Not on file Occupation Industry Job Start Date Job End Date Not on file Not on file Not on file Not on file documented as of this encounter Plan of Treatment Upcoming Encounters Date Type Department Care Team (Late st Contact Info) Description 06/18/2025 10:15 AM AERIAL PHOTOGRAPHER Office Visit [facility] Heart and Vascular At [facility] [address] [place] [address] Kali Varela MD [address] [place] [address] documented as of this encounter Visit Diagnoses Not on filedocumented in this encounter Additional Health Concerns Infection Onset Date Last Indicated Resolved Time R/O GI Pathogen 09/19/2023 09/19/2023 09/21/2023 7 :33 AM CDT documented as of this encounter Care Teams Associate Professor Of Art History Relationship Specialty Start Date End Date Stanislaw Marinelli DO [address] [facility] 162 [facility] [address] [place] [address] PCP - General Internal Medicine 02/22/25 documented as of this encounter
--- OUTSIDE RECORDS SUMMARY | 2025-04-08 19:41 | XMS_ITS | Encounter Summary ---
Author Organization [facility] Address [address] [place] [address] Care Team Providers Care Design Engineer Marine Equipment Name Role Phone Stanislaw Marinelli DO Primary Care Provider [phone] Reason for Visit * Reason Onset Date Comments OTHER 11/21/2021 Encounter Details Date Type Department Care Team (Late st Contact Info) Description 11/21/2021 Telephone [facility] Oncology [address] [place] [address] Nicole Rosas MD [address] [place] [address] OTHER Social History Tobacco Use [...] on file Legal Sex Female 6:07 AM MACHINERY MECHANIC Gender Identity Not on file Sexual Orientation Not on file Occupation Industry Job Start Date Job End Date Not on file Not on file Not on file Not on file documented as of this encounter Plan of Treatment Upcoming Encounters Date Type Department Care Team (Late st Contact Info) Description 06/18/2025 10:15 AM MACHINERY MECHANIC Office Visit [facility] Heart and Vascular At [place] [address] [facility] [address] [place] [address] Kali Varela MD [facility] [address] [facility] [address] [place] [address] documented as of this encounter Visit Diagnoses Not on filedocumented in this encounter Additional Health Concerns Infection Onset Date Last Indicated Resolved Time R/O GI Pathogen 09/19/2023 09/19/2023 09/21/2023 7 :33 AM CDT documented as of this encounter Care Teams Design Engineer Marine Equipment Relationship Specialty Start Date End Date Stanislaw Marinelli DO [address] [facility] 162 [facility] [address] [place] [address] PCP - General Internal Medicine 02/22/25 documented as of this encounter
--- OUTSIDE RECORDS SUMMARY | 2025-04-08 19:42 | XMS_ITS | Clinical Summary ---
Author Organization [facility] Address [address] [address] Phone Care Team Providers Care Investment Executive Name Role Phone Jose G [place] MD Unavailable [phone] Guerrero Middleton Primary Care Provider Social History [...] to complete this topic Insurance Care Teams Investment Executive Relationship Specialty Start Date End Date Guerrero Middleton PAC [address] [facility] [address] [place] [address] PCP - General Physician Therapy Teacher 12/10/16 Jsoe G [place] MD Consulting Physician Gastroenterology 12/10/16
--- OUTSIDE RECORDS SUMMARY | 2025-04-08 19:42 | XMS_ITS | Clinical Summary ---
Author Organization [facility] Address [address] [place] [address] Phone Care Team Providers Care Configuration Management Administrator Name Role Phone Stanislaw Marinelli Maxwell REHMAN Primary Care Provider [phone] Allergies Active Allergy Reactions Criticality Noted Date [...] 48h post LHC 4 Active Blood-Glucose Sensor (DerbyJackpot G7 Sensor) Device 4 Active buPROPion HCL [...] weeks. 2 mL 11 03/03/2025 12:36 PM LEGAL INTERNSHIP 5 Active Additional Information Patient taking differently:140 mg subCUT EVERY TWO WEEKS,Not started yet 02/23/2025, Reported on 02/23/2025 ticagrelor (Brilinta) 60 mg Tablet Take 60 mg by mouth 2 times daily. Active Active Problems Patient Care Coordination No te Formatting of this note migh t be different from the original. Marlys Mayer MD--[employer] ([facility] @ ) Problem Noted Date Diagnosed Date HTN (hypertension), benign 02/23/2025 Unresponsive episode 02/23/2025 History of heart artery stent 02/23/2025 Type 2 diabetes mellitus wit h hyperglycemia, with long-term current use of insulin 02/23/2025 Acute non intractable tension-type headache 01/28 Syncope and collapse 09/19/2023 Coronary artery disease invo lving salamatof coronary artery of salamatof heart without angina pectoris 09/19/2023 Severe episode [...] Encounters Date Type Department Care Team Description 03/30/2025 External Device Data STL ABSTRACTION Provider, Abstract 03/30/2025 External Device Data STL ABSTRACTION Provider, Abstract 03/03/2025 External Device Data STL ABSTRACTION Provider, Abstract 03/02/2025 External Device Data STL ABSTRACTION Provider, Abstract 02/25/2025 3:08 PM CDT - 02/25/2025 11:59 PM CDT Hospital Encounter [facility] Non Invasive Cardiology [address] [place] [address] Bronwyn Hernandez MD Discharge Disposition: Home or Self Care 02/24/2025 External Device Data STL ABSTRACTION Provider, Abstract 02/24/2025 Travel 02/23/2025 3:05 PM CDT - 02/25/2025 2:36 PM CDT Hospital Encounter [facility] Neurosurgery [address] [place] [phone] Pernell Gonzalez MD Jeliazkova, Iana, MD Hilliard, Carolyn Anne, MD Chylomicronemia syndrome Discharge Disposition: Home or Self Care 02/05/2025 Abstract [facility] - [address] [place] [address] Marlys Mayer MD 01/28/2025 Results Follow-Up [facility] At [facility] [address] [address] [place] [phone] Angie Blackburn RN NM MYOCARD PERF IMAG SPECT MULT 01/27/2025 8:58 AM CDT - 01/27/2025 11:59 PM CDT Hospital Encounter [facility] Nuclear Medicine [address] [place] [phone] Marlys Mayer MD Discharge Disposition: Home or Self Care 01/27/2025 8:58 AM CDT - 01/27/2025 11:59 PM CDT Hospital Encounter [facility] Nuclear Medicine [address] [place] [address] Marlys Mayer MD Discharge Disposition: Home or Self Care 01/22/2025 Refill [facility] [address] [place] [address] Marlys Mayer MD 01/18/2025 3:00 PM CDT Office Visit [facility] - [facility] [address] [place] [phone] Marlys Mayer MD Chylomicronemia syndrome (Primary Dx); Coronary artery disease involving salamatof coronary artery of salamatof heart without angina pectoris; Mixed hyperlipidemia; Type 1 diabetes mellitus without complication (CMS/HCC); Chronic recurrent pancreatitis (CMS/HCC); Type 1 diabetes mellitus without complications (CMS/HCC) from Last 3 Months Immunizations Immunization [...] worry about transportation for future doctor visits, warehouse picker medication, etc.? No 2024 Housing Stability Answer [...] on file Legal Sex Female 6:07 AM LEGAL INTERNSHIP Gender Identity Not on file Sexual Orientation [...] st Contact Info) Description 06/18/2025 10:15 AM LEGAL INTERNSHIP Office Visit [facility] At [place] [address] [facility] [address] [place] [address] Kali Varela MD [address] [place], [place] [address] [place] [phone] Health Maintenance Due Date Last Done Comments [...] history exists Medical Devices Implanted Type Area Securities Broker Device Identifier Shelf Expiration Date Model / Serial / Lot Cath Hemodlys Glidespath 23cm [id number] Implanted:Qty : 1 on 04/10/2018 by Kayla Sheffield MD Catheter CR BARD- [employer] [id number] 08/27/2019 [id number] / / [id number] Description:14.5fr x 23cm; R IJ Port-10/29/2018 Implanted:Qty : 2 on 10/29/2018 by Laverne Willoughby MD Explanted:Qty : 1 on 02/18/2019 by Michael Powell MD Port Right: Chest Wall CR BARD- ACCESS SYS 07/28/2019 / / [id number] Description:two 9.6fr fower flow apheresis ports placed by Dr. Willoughby Port- 0 Implanted:Qty : 1 on 05/11/2019 by Alfa Forrest MD Port Left: Chest Wall CR BARD- ACCESS SYS 08/26/2020 / / [id number] Stent Synergy Xd 4.0x12mm Evrlms Elut [id number] - [id number] Implanted:Qty : 1 on 11/29/2023 by Miguel Lewis MD at [facility] Stent N/A: Coronary PetMD GRISELDA [id number] 03/19/2024 [id number] / / [id number] Procedures Procedure Name Priority Date/Time Associated Diagnosis Comments CARDIAC EVENT MONITOR Routine 03/26/2025 6:00 AM LEGAL INTERNSHIP Unresponsive episode POC GLUCOSE Routine 02/25/2025 12:36 [...] syndrome Mixed hyperlipidemia Coronary artery disease involving salamatof coronary artery of salamatof heart without angina pectoris Type 1 diabetes mellitus without complications Chronic recurrent pancreatitis (CMS/HCC) HM EJECTION FRACTION Routine 01/27/2025 12:50 PM CDT NM PHARMACOLOGICAL STRESS TEST Routine 01/27/2025 11:36 AM CDT Coronary artery disease involving salamatof coronary artery of salamatof heart without angina pectoris Chylomicronemia syndrome Mixed hyperlipidemia Chronic recurrent pancreatitis (CMS/HCC) from Last 3 Months Results * CARDIAC EVENT MONITOR (03/26/2025 6:00 AM LEGAL INTERNSHIP) 03/26/2025 6:00 AM LEGAL INTERNSHIP Narrative INTERFACE SYSTEM - 03/28/2025 2:34 PM LEGAL INTERNSHIP [facility] [address], [place] [address] Test Date: 2025-03-26 Pat Name: LINDA DOSS Department: Room: 3358 1 Gender: F Perforator Operator: : 1975 Requested By: PERNELL GONZALEZ Order Number: [id number] Reading : Malcom Blackburn Interpretive Statements Patient monitored for 2d 1h 17m PACs were not found during the monitoring period PVCs were not found during the monitoring period There were no patient-triggered events There were no atrial fibrillation events, pauses, or advanced AV block Electronically Signed On 03-28-2025 14:34:44 LEGAL INTERNSHIP by Malcom Blackburn Procedure Note Malcom Blackburn MD - 03/28/2025 [facility] [address] [place] [address] Test Date: 2025-03-26 Pat Name: LINDA DOSS Department: Room: [facility] Gender: F Perforator Operator: : 1975 Requested By: PERNELL GONZALEZ Order Number: [id number] Reading MD: Malcom Blackburn Interpretive Statements Patient monitored for 2d 1h 17m PACs were not found during the monitoring period PVCs were not found during the monitoring period There were no patient-triggered events There were no atrial fibrillation events, pauses, or advanced AV block Electronically Signed On 03-28-2025 14:34:44 LEGAL INTERNSHIP by Malcom Blackburn Bronwyn Hernandez MD CARDIAC SERVICES ORDERA BLES Final Result INTERFACE SYSTEM Refer to clinic/hospital department * (ABNORMAL) POC GLUCOSE (02/25/2025 12:36 PM CDT) Only the most recent of8 resultswithin the time period is included. GLUCOSE POC 122(H) 74 - 99 mg/dL 02/25/2025 12:36 PM CDT [facility] SPECIMEN SOURCE, GLUCOSE POC Whole Blood 02/25/2025 12:36 PM CDT [facility] COMMENT, GLU POC Alerted Nurse/ISMAEL/D r 02/25/2025 12:36 PM CDT [facility] Blood, whole 02/25/2025 12:3 6 PM CDT 02/25/2025 1:05 PM CDT Bronwyn Hernandez MD POINT OF CARE TESTING F inal Result [facility] [id number] [address] [place] [address] * EEG (02/24/2025 9:06 PM CDT) Narrative Andrew Hsieh MD - 02/24/2025 9:06 PM CDT Andrew Hsieh MD 02/24/2025 9:08 PM Routine EEG Report Patient Name: Linda Doss [facility] Record Number (MRN): [id number] Date of (): 1975 EEG Date: 02/24/2025 [...] no significant abnormality. Alma Hsieh MD Neurology Angie Louis MD NEUROLOGY ORDERABLES Final Re sult * MRI BRAIN W WO CONTRAST (02/24/2025 8:27 AM CDT) Anatomical Region Laterality Modality Head Magnetic Resonan ce 02/24/2025 9:01 AM CDT Impressions 02/24/2025 9:10 AM CDT IMPRESSION: Normal brain MRI. DICTATION LOCATION: Location 1 - [facility] Narrative 02/24/2025 9:10 AM CDT MRI BRAIN [...] brain MRI. DICTATION LOCATION: Location 1 - [facility] us Angie Louis MD MR ORDERABLES Final Result * (ABNORMAL) CBC WITH DIFFERENTIAL (02/24/2025 4:09 AM CDT) WBC 5.7 4.0 - 9.8 K/uL 02/24/2025 5:05 AM CDT [facility] RBC 3.97 3.90 - 4.90 M/uL 02/24/2025 5:05 AM CDT [facility] HEMOGLOBIN 11.9 11.8 - 14.8 g/dL 02/24/2025 5:05 AM [facility] LABORATORY SERVICES - [facility] HEMATOCRIT 35.7 35.5 - 44.0 % 02/24/2025 5:05 AM [employer] [facility] LABORATORY SERVICES - [facility] MCV 89.9 82.0 - 99.0 fL 02/24/2025 5:05 AM [employer] [facility] LABORATORY SERVICES - [facility] MCH 30.0 27.2 - 32.6 pg 02/24/2025 5:05 AM [employer] LABORATORY SERVICES - [facility] MCHC 33.3 31.5 - 35.5 g/dL 02/24/2025 5:05 AM [employer] [facility] LABORATORY SERVICES - [facility] RDW 14.7(H) 11.5 - 14.5 % 02/24/2025 5:05 AM [employer] [facility] LABORATORY SERVICES - [facility] RDW-STDEV 49.2(H) 37.1 - 48.7 fL 02/24/2025 5:05 AM [employer] [facility] LABORATORY SERVICES - [facility] PLATELETS 175 140 - 350 K/uL 02/24/2025 5:05 AM [employer] LABORATORY SERVICES [facility] MPV 9.3 9.3 - 12.4 fL 02/24/2025 5:05 AM [employer] [facility] LABORATORY SERVICES - [facility] NEUTROPHILS 54 % 02/24/2025 5:05 AM [employer] LABORATORY SERVICES [facility] LYMPHOCYTES 37 % 02/24/2025 5:05 AM [employer] [facility] LABORATORY SERVICES [facility] MONOCYTES 7 % 02/24/2025 5:05 AM [employer] [facility] LABORATORY SERVICES - [facility] EOSINOPHILS 1 % 02/24/2025 5:05 AM [employer] [facility] LABORATORY SERVICES - . [facility] BASOPHILS 1 % 02/24/2025 5:05 AM [employer] [facility] LABORATORY SERVICES [facility] IMMATURE GRANULOCYTES 1 % 02/24/2025 5:05 AM [employer] [facility] [facility]ORATORY SERVICES - [facility] Comment:IG (Immature Granulo cyte) count includes Metamyelocytes, Myelocytes, and Promyelocytes NEUTROPHIL ABSOLUTE 3.05 1.90 - 7.00 K/uL 02/24/2025 5:05 AM [facility] [facility]ORATORY SERVICES [facility] LYMPHOCYTE ABSOLUTE 2.12 0.70 - 4.50 K/uL 02/24/2025 5:05 AM CDT [facility] SERVICES - [facility] MONOCYTE ABSOLUTE 0.39 0.10 - 1.30 K/uL 02/24/2025 5:05 AM CDT [facility] SERVICES - . [facility] EOSINOPHIL ABSOLUTE 0.05 0.00 - 0.70 K/uL 02/24/2025 5:05 AM CDT [facility] SERVICES - [facility] BASOPHILS ABSOLUTE 0.03 0.00 - 0.20 K/uL 02/24/2025 5:05 AM CDT [facility] SERVICES - [facility] IMMATURE GRANULOCYTES ABSOLUTE 0.03 0.00 - 0.03 K/uL 02/24/2025 5:05 AM CDT [facility] SERVICES - [facility] Blood Venipuncture / Unknown 02/24/2025 4:09 AM CDT 02/24/2025 4:32 AM CDT Angie Louis MD HEMATOLOGY ORDERABLES Final R esult [facility] CLIA# [id number] [address], [place] [address] * (ABNORMAL) TSH (02/24/2025 4:09 AM CDT) [facility] TSH 14.70(H) 0.27 - 4.20 uIU/mL 02/24/2025 10:24 AM CDT [facility] Blood Venipuncture / Unknown 02/24/2025 4:09 AM CDT 02/24/2025 4:31 AM CDT Tami GRIDER CHEMISTRY ORDERABLES Final Result [facility] CLIA# [id number] [address], [place] [address] * (ABNORMAL) T4 FREE (02/24/2025 4:09 AM CDT) Pathologist [facility] T4 FREE 0.80(L) 0.90 - 1.70 ng/dL 02/24/2025 1:32 PM CDT [facility] Blood Venipuncture / Unknown 02/24/2025 4:09 AM CDT 02/24/2025 4:31 AM CDT [facility] CHEMISTRY ORDERABLES Final Result Performing Organization Address [facility] Co de Phone Number [facility] CLIA# [id number] [address] [place] [address] * MAGNESIUM LEVEL (02/24/2025 4:09 AM CDT) [facility] MAGNESIUM 1.7 1.6 - 2.6 mg/dL 02/24/2025 1:32 PM CDT [facility] Blood Venipuncture / Unknown 02/24/2025 4:09 AM CDT 02/24/2025 4:31 AM CDT Tami Huber [facility] CHEMISTRY ORDERABLES Final Result Performing Organization Address [facility] de Phone Number [facility]# [id number] [address] [place] [address] * (ABNORMAL) HEMOGLOBIN A1C (02/24/2025 4:09 AM CDT) [facility] HEMOGLOBIN A1C 9.2(H) <5.7 % 02/24/2025 5:04 AM CDT [facility] EST. AVG GLUCOSE, A1C 217 mg/dL 02/24/2025 5:04 AM CDT [facility] Blood Venipuncture / Unknown 02/24/2025 4:09 AM CDT 02/24/2025 4:32 AM CDT Narrative [facility] - 02/24/2025 5:04 AM CDT HGB A1C INTERPRETATION NORMAL: <5.7% PRE-DIABETES: 5.7 - 6.4% DIABETES: 6.5% OR GREATER Angie Louis MD CHEMISTRY ORDERABLES Final Re sult [facility] SERVICES [facility] KARLEE# [id number] [address] [facility] [place] [address] * LIPID PANEL (02/24/2025 4:09 AM CDT) [facility] CHOLESTEROL 164 <200 mg/dL 02/24/2025 5:18 AM CDT [facility] [employer] [facility] TRIGLYCERIDE 123 <150 mg/dL 02/24/2025 5:18 AM CDT [facility] HDL 43 40 - 59 mg/dL 02/24/2025 5:18 AM CDT [facility] [employer] [facility] LDL CALCULATED 96 <100 mg/dL 02/24/2025 5:18 AM CDT [facility] [employer] [facility] NON-HDL CHOLESTEROL 121 <130 mg/dL 02/24/2025 5:18 AM T [facility] [employer] [facility] Blood Venipuncture / Unknown 02/24/2025 4:09 AM CDT 02/24/2025 4:31 AM CDT Narrative [facility] - 02/24/2025 5:18 AM CDT TOTAL [...] Louis MD CHEMISTRY ORDERABLES Final Re sult [facility] KARLEE# [id number] [address] [place] [address] * (ABNORMAL) BASIC METABOLIC PANEL (02/24/2025 4:09 AM CDT) [facility] SODIUM 139 136 - 145 mmol/L 02/24/2025 5:18 AM [facility] POTASSIUM 4.1 3.5 - 5.0 mmol/L 02/24/2025 5:18 AM [facility] [employer] [facility] CHLORIDE 105 98 - 107 mmol/L 02/24/2025 5:18 AM [facility] CO2 27 22 - 29 mmol/L 02/24/2025 5:18 AM [facility] CALCIUM 8.5(L) 8.6 - 10.2 mg/dL 02/24/2025 5:18 AM [facility] BUN 11 6 - 20 mg/dL 02/24/2025 5:18 AM [facility] CREATININE 0.77 0.51 - 0.95 mg/dL 02/24/2025 5:18 AM [facility] GLUCOSE 104(H) 74 - 99 mg/dL 02/24/2025 5:18 AM [facility] GFR >60 >=60 mL/min/1.7 3 sq meter 02/24/2025 5:18 AM [facility] [employer] [facility] Comment:eGFR calculated with 2020 CKD-EPI equation. Vegetarian diet, extremely high or low muscle mass, and may affect results. Cystatin C with Glomerular Filtration Rate is a suitable alternative for these patients. ANION GAP 7(L) 8 - 16 mmol/L 02/24/2025 5:18 AM [facility] Blood Venipuncture / Unknown 02/24/2025 4:09 AM CDT 02/24/2025 4:31 AM CDT us Angie Louis MD CHEMISTRY ORDERABLES Final Re sult [facility] - [facility] CLCT# [id number] [address] [place] [address] * NM MYOCARD PERF IMAG SPECT MULT [...] comparison. Recommendations: Clinical correlation is recommended. Marlys RAMOS ORDERABLES Final Result INTERFACE SYSTEM Refer to clinic/hospital department * (ABNORMAL) HM EJECTION FRACTION (01/27/2025 12:50 PM CDT) [facility] Signature EJECTION FRACTION 66(A) 50 - 65 % us Historical Provider HEALTH MAINTENANCE Final Res ult * NM PHARMACOLOGICAL STRESS TEST (01/27/2025 11:36 AM CDT) Narrative 01/27/2025 11:36 AM CDT Order information only. Exam was auto-finalized. Marlys RAMOS ORDERABLES Final Result from Last 3 Months Insurance RX MEDRANO PLANS (INTERNAL) [facility] RX MEDRANO PLANS (INTERNAL) [facility] [employer] RX [employer] RX Member Subscriber Plan / Payer (Ef fective 2025-Present) Name:Linda Doss Relation to Subscriber:Self Name:Linda Doss Subscriber ID:Not on file Payer ID:Not on file Group ID:[id number] Type:RX Medicare Part D Address: [place] [employer] Commercial Advance Directives For more information, please contact: [phone] * Full Code (Latest Code Status on [...] 3:04 PM 08/26/2021 4:03 PM Care Teams Configuration Management Administrator Relationship Specialty Start Date End Date Stanislaw Marinelli DO [address] [facility] [address] [facility] [address] [place] [address] PCP - General Internal Medicine 02/22/25
--- OUTSIDE RECORDS SUMMARY | 2025-04-08 19:42 | XMS_ITS | Encounter Summary ---
Author Organization [facility] Address [address] [place] [address] Care Team Providers Care Migratory Farm Hand Name Role Phone Stanislaw Marinelli Primary Care Provider [phone] Encounter Details Date Type Department Care Team (Late st Contact Info) Description 10/13/2021 Telephone [facility] Oncology [address] [place] [address] Phoenix Riddle MD [address] [facility] [address] Department [place] [address] Social History Tobacco Use Types [...] file Legal Sex Female 6:07 AM PATIENT CARE REPRESENTATIVE Gender Identity Not on file Sexual Orientation [...] st Contact Info) Description 06/18/2025 10:15 AM PATIENT CARE REPRESENTATIVE Office Visit [facility] Vascular At [place] [address] [place] [address] Kali Varela MD [address] [facility] [address] [place] [address] documented as of this encounter Visit Diagnoses Not on filedocumented in this encounter Additional Health Concerns Infection Onset Date Last Indicated Resolved Time R/O GI Pathogen 09/19/2023 09/19/2023 09/21/2023 7 :33 AM CDT documented as of this encounter Care Teams Migratory Farm Hand Relationship Specialty Start Date End Date Stanislaw Marinelli DO [address] [facility] [address] [facility] [address] [place] [address] PCP - General Internal Medicine 02/22/25 documented as of this encounter
--- OUTSIDE RECORDS SUMMARY | 2025-04-08 19:42 | XMS_ITS | Clinical Summary ---
Author Organization [facility] Address [address] [place] [address] Care Team Providers Care Perfume Maker Name Role Phone Mauri Jaime MD Primary Care Provider [phone] Guerrero Middleton PA Unavailable [phone] Allergies Active Allergy Reactions Criticality Noted Date [...] tablet TAKE 1 TABLET BY MOUTH EVERY DRUM HANDLER 022 Active fenofibrate (TRIGLIDE) 160 mg tablet [...] on file Legal Sex Female 5:05 AM CURTAIN WORKER Gender Identity Not on file Sexual Orientation Not on file Last Filed Vital Signs Vital Sign Reading Time Taken Comments Blood Pressure 101/62 06/05/2023 11:38 AM CURTAIN WORKER Pulse 76 06/05/2023 11:38 AM CURTAIN WORKER Temperature 36.4 C (97.5 F) 06/05/2023 10:35 AM CURTAIN WORKER Respiratory Rate 22 06/05/2023 11:38 AM CURTAIN WORKER Oxygen Saturation 94% 06/05/2023 11:38 AM CURTAIN WORKER Inhaled Oxygen Concentration - - Weight 81.6 kg (180 lb) 06/05/2023 8:58 AM CURTAIN WORKER Height 165.1 cm (5' 5) 06/05/2023 8:58 AM CURTAIN WORKER Body Mass Index 29.95 06/05/2023 8:58 AM CURTAIN WORKER Plan of Treatment Health Maintenance Due Date [...] 04/09/2022, Additional history exists Insurance ANGY BR[employer]KE [facility] [employer] [facility] Care Teams Perfume Maker Relationship Specialty Start Date End Date Mauri Jaime MD [address] [facility] [address] [place] [address] PCP - General Internal Medicine 05/28/23 Guerrero Middleton PA [address] [facility] [address] [place] [address] 05/28/23
--- OUTSIDE RECORDS SUMMARY | 2025-04-08 19:42 | XMS_ITS | Encounter Summary ---
Author Organization [facility] Address [address] [place] [address] Care Team Providers Care Commercial Property Administrator Name Role Phone Stanislaw Marinelli Primary Care Provider [phone] Reason for Visit * Reason Onset Date Comments petr rubin 09/13/2021 Encounter Details Date Type Department Care Team (Late st Contact Info) Description 09/13/2021 Telephone [facility] Donor Services [place] [address] [place] [address] Gloria Tristan, RN [facility] Social History Tobacco Use Types [...] on file Legal Sex Female 6:07 AM BIOMETRICS INSTRUCTOR Gender Identity Not on file Sexual [...] st Contact Info) Description 06/18/2025 10:15 AM BIOMETRICS INSTRUCTOR Office Visit [facility] At [place] [address] [facility] [address] [place] [address] Kali Varela MD [facility] [address] [facility] [address] [place] [address] documented as of this encounter Visit Diagnoses Not on filedocumented in this encounter Additional Health Concerns Infection Onset Date Last Indicated Resolved Time R/O GI Pathogen 09/19/2023 09/19/2023 09/21/2023 7 :33 AM CDT documented as of this encounter Care Teams Commercial Property Administrator Relationship Specialty Start Date End Date Stanislaw Marinelli DO [address] [facility] [address] [place] [address] PCP - General Internal Medicine 02/22/25 documented as of this encounter
[2025-04-08 19:45] LABS: INR 0.9; Prothrombin Time 12.4 Seconds (11.1-14.7)
[2025-04-08 19:46] LABS: Partial Thromboplastin Time 29.3 Seconds (22.3-36.8)
[2025-04-08 19:48] LABS: Alanine Aminotransferase 48 U/L (6-35); Albumin Level 4.6 g/dL (3.5-5.1); Alkaline Phosphatase 96 U/L (38-126); Anion Gap 9 mmol/L (4-12); Aspartate Amino Transferase 46 U/L (14-36); Bilirubin,Total 0.4 mg/dL (0.2-1.3); Blood Urea Nitrogen 18 mg/dL (7-17); Calcium 10.0 mg/dL (8.4-10.2); Carbon Dioxide 26 mmol/L (22-30); Chloride 104 mmol/L (98-107); Estimated CRCL calculation 85 ml/min; Estimated Glomerular Filt Rate > 60; Glucose 141 mg/dL (65-110); Lipase 126 U/L (23-300); Potassium 4.3 mmol/L (3.4-5.0); Sodium 139 mmol/L (137-145); Total Protein 7.6 g/dL (6.3-8.2)
[2025-04-08 19:59] LABS: Troponin I < 0.012 ng/mL (0.000-0.034)
--- NOTE | 2025-04-08 20:07 | ED.CHESTPAIN ---
HPI - Chest Pain General Chief Complaint: Chest Pain Stated Complaint: CHEST PAIN W/ STEMI & STENT HISTORY Time Seen by Provider: 04/08/25 19:04 Source: patient and family Mode of arrival: ambulatory Limitations: no limitations History of Present Illness HPI narrative: This is a 49-year-old female with history of chylomicronemia, pancreatitis, diabetes who presents the ED for chest pain. Patient states that this morning, she has been having intermittent left chest pressure. She states that while she was cooking dinner, she began to have radiation to her left shoulder and left neck and left jaw that was similar to a prior heart attack that she had last year who which point she had 3 stents placed. She has had some mild shortness of breath. Denies fevers, chills. Related Data Home Medications ?Medication ?Instructions ?Recorded ?Confirmed ?Last Taken ?Type metoprolol succinate 25 mg 12.5 mg PO DAILY 03/31/24 02/05/25 09/21/24 History tablet,extended release 24 hr olezarsen 80 mg/0.8 mL 80 mg subcut MONTHLY 09/16/24 02/05/25 11/27/24 History subcutaneous auto-injector (Tryngolza) clopidogrel 75 mg tablet (Plavix) 75 mg PO DAILY 02/05/25 02/05/25 Unknown History evolocumab 140 mg/mL subcutaneous 140 mg subcut ONCE 03/18/25 Unknown History pen injector (Repatha SureClick) Allergies Allergy/AdvReac Type Severity Reaction Status Date / Time adhesive tape Allergy Mild Rash Verified 03/18/25 10:50 [place] pepper (green pepper) Allergy Unknown Hives Verified 03/18/25 10:50 sucralose (From Splenda Allergy Migraine Verified 03/18/25 10:50 (sucralose)) Artificial Sweetners AdvReac Migraine Uncoded 03/18/25 10:50 Review of Systems Review of Systems: Gen.: Denies fevers or chills Eyes: Denies eye pain or visual change ENT: Denies congestion Respiratory: As per HPI CV: As per HPI GI: Denies abdominal pain nausea, emesis or diarrhea denies burning, urgency, frequency or hematuria Musculoskeletal: Denies back pain or muscle pain Neuro: Denies numbness, tingling, weakness or focal weakness Skin: Denies rash Except as documented, all other systems reviewed and negative PMFSH Past Medical History Medical History BMI 30.0-30.9,adult Gastroenteritis Gastroparesis Chylomicronemia syndrome CAD (coronary artery disease) Anxiety BMI 31.0-31.9,adult 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 Abnormal CT scan, esophagus Nausea Occult blood in stools Colon cancer screening Hypertriglyceridemia PCOS (polycystic ovarian syndrome) GERD (gastroesophageal reflux disease) 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 Allergic rhinitis Insulin dependent diabetes mellitus Chronic pancreatitis (~09/02/23) Port-A-Cath in place Lipoprotein deficiency Headache Surgical History Surgical History History of wisdom tooth extraction History of tubal ligation History of partial hysterectomy History of endometrial ablation History of appendectomy History of loop electrical excision procedure (LEEP) History of exploratory laparotomy History of dilatation and curettage History of conization of cervix History of tonsillectomy Family History Family History Father Alcohol abuse Hypercholesteremia Hypertension Family history of alcoholism Family history of cardiovascular disease Diabetes mellitus Mother Hypercholesteremia Hypothyroid Cerebrovascular accident Family history of cardiovascular disease Diabetes mellitus Grandparent Skin cancer Colon cancer Heart disease Hypothyroid Cerebrovascular accident Sibling Autoimmune disorder Hypothyroid Kidney disorder Hypertension Diabetes mellitus Other Family history of kidney disease Social History Social History Social History: She smokes up to 1ppd since age 16yo. No alcohol or drug use. She has dog and a cat at home. Surrogate medical decision maker: José Miguel Jones, spouse. Code status: Full Smoking packs per day: 0.5 Smoking cigarettes per day: 10.0 Years smoked: 20 Smoking pack-years: 10.00 Smoking status: Current every day smoker Tobacco type: cigarettes Second hand tobacco smoke exposure: No Alcohol intake: never Drinks per week: 0 Substance use: never Substance use type: does not use Lack of Transportation: No Lack of Food: Never True Current Housing: I Have Housing Concerned About Future Housing: No Difficulty Paying Gas/Electric Bills: No Difficulty Paying for Meds: No Currently Unemployed: No Education: Associate Degree Difficulty w/ Childcare or Family Care: No Living arrangements: with family Occupation/Education: retired 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 CARDIOVASCULAR: Regular rate and rhythm without murmurs rubs or gallops. Healing Ecchymosis inferior to a left-sided port with mild tenderness to palpation. ABDOMINAL: Soft, nontender, nondistended, no rebound or guarding MUSCULOSKELETAl: Moves all extremities. No clubbing, cyanosis or edema. NEURO: Awake and alert. Following commands, speech normal, no focal deficits SKIN:: Warm, dry. No rashes lesions or abrasions PSYCHIATRIC: Normal affect/mood, Course Vital Signs Vital signs: Vital Signs Pulse Oximetry 100 04/08/25 19:18 Oxygen Delivery Room Air 04/08/25 19:18 Temperature 97.6 F 04/08/25 19:20 Pulse Rate 80 04/08/25 19:20 Respiratory Rate 25 H 04/08/25 19:20 Blood Pressure 100/68 04/08/25 19:20 Pulse Oximetry 97 04/08/25 19:20 Oxygen Delivery Room Air 04/08/25 19:20 [facility] MDM Narrative Medical decision making narrative: 49-year-old female Presenting for chest pain. On initial evaluation patient was in no acute distress afebrile, hemodynamic stable. Differentials include but are not limited to: ACS, PE, PNA, bronchitis, costochondritis, pleurisy, viral syndrome, GERD Notable exam findings: Small amount of ecchymosis inferior to her left port with mild tenderness to palpation. I personally reviewed the patient's lab result. Notable lab findings: CBC and CMP without significant abnormalities. Initial troponin negative. Repeat troponin negative. I personally reviewed the patient's images and interpret as follows: Chest x-ray: Normal cardiac silhouette, no consolidations, no pleural effusions, no pulmonary vascular congestion. Port catheter is in place to the bilateral chest I personally reviewed the patient's EKGs: Normal sinus rhythm, normal axis, normal intervals, no acute ST or T-wave changes Repeat EKG: Normal sinus rhythm, normal axis, normal intervals, no acute ST or T-wave changes, no significant change from earlier Patient's pain had subsided on re-evaluation. Low suspicion for cardiac chest pain at this time a heart score is 3. Patient's EKGs and labs are without significant high risk changes. Cardiac risk factors reviewed. Patient is felt likely low risk for ACS and reasonable for further risk stratification testing as an outpatient. Pain was not sudden or maximal in onset without tearing or ripping quality. No other signs of symptoms suggest aortic dissection. No pneumonia seen on evaluation today. Patient is felt to be a reasonable candidate for continued evaluation as an outpatient. Patient was deemed appropriate for discharge at this time. Patient was advised follow-up with their business transformation consultant in the next week for re-evaluation. Patient was agreeable to this plan. Given strict return precautions. Differential Diagnosis Differential Diagnosis: ACS, PE, PNA, bronchitis, costochondritis, pleurisy, viral syndrome, GERD Lab Data MDM Lab Attestation statement: I personally reviewed the patient's lab results. 04/08/25 19:23 04/08/25 19:23 Labs: Lab Results 04/08/25 04/08/25 Range/Units 19:23 22:02 WBC 9.1 (4.5-10.0) K/mm3 RBC 4.47 (4.2-5.4) M/mm3 Hgb 13.6 (12.0-15.0) g/dL Hct 40.3 (37.0-47.0) % MCV 90.2 (80-100) fl MCH 30.4 (26-34) pg MCHC 33.7 (32-36) g/dl RDW 13.9 (11.5-14.5) % Plt Count 262 (150-375) k/mm3 MPV 9.3 (7.4-10.4) fl Immature Gran % (Auto) 0.9 H (0-0.5) % Neut % (Auto) 61.7 (45.5-73.1) % Lymph % (Auto) 29.4 (18.3-44.2) % [place] % (Auto) 7.4 (2.6-8.5) % Eos % (Auto) 0.4 (0-4.4) % Baso % (Auto) 0.2 (0.2-1.2) % Lymph # (Auto) 2.67 (0.9-3.2) K/mm3 [place] # (Auto) 0.7 H (0.1-0.6) K/mm3 Eos # (Auto) 0.0 (0-0.3) K/mm3 Baso # (Auto) 0.0 (0.0-0.1) K/mm3 Abs Immat Gran (auto) 0.08 H (0.00-0.031) K/mm3 Absolute Neuts (auto) 5.6 (1.3-6.7) K/mm3 Absolute Nucleated RBC 0.000 (0.0-0.012) K/mm3 Nucleated RBC % 0.0 (0.0-0.2) % PT 12.4 (11.1-14.7) Seconds INR 0.9 APTT 29.3 (22.3-36.8) Seconds Sodium 139 (137-145) mmol/L Potassium 4.3 (3.4-5.0) mmol/L Chloride 104 (98-107) mmol/L Carbon Dioxide 26 (22-30) mmol/L Anion Gap 9 (4-12) mmol/L BUN 18 H (7-17) mg/dL Creatinine 0.77 (0.7-1.0) mg/dL Estim Creat Clear Calc 85 ml/min Estimated GFR > 60 (59 - ) Glucose 141 H (65-110) mg/dL Calcium 10.0 (8.4-10.2) mg/dL Total Bilirubin 0.4 (0.2-1.3) mg/dL AST 46 H (14-36) U/L ALT 48 H (6-35) U/L Alkaline Phosphatase 96 (38-126) U/L Troponin I < 0.012 < 0.012 (0.000-0.034) ng/mL Total Protein 7.6 (6.3-8.2) g/dL Albumin 4.6 (3.5-5.1) g/dL Lipase 126 (23-300) U/L Imaging Data Attestation: I personally reviewed and interpreted this imaging study as follows: Radiologist's impression: ITS Impressions Chest X-Ray 04/08/25 19:39 IMPRESSION: 1. No acute pulmonary findings. Discharge Plan Discharge Clinical Impression: Tobacco use Chest pain Qualifiers: Chest pain type: other chest pain Qualified Code(s): R07.89 - Other chest pain Patient Disposition: Home Condition: Stable Instructions: Antibiotic Form, Chest Pain (ED) Additional Instructions: Lab work and imaging showed no evidence of cardiac injury at this time. You may take Tylenol and ibuprofen for your pain. Follow up with your business transformation consultant in the next week for reevaluation. Return to the ED for new or worsening symptoms. Patient Language: Slovak Prescriptions: No Action Tryngolza 80 mg/0.8 mL auto-injector 80 mg subcut MONTHLY Repatha SureClick 140 mg/mL pen injector 140 mg subcut ONCE Baqsimi 3 mg/actuation spray,non-aerosol 3 mg intranasal ONCE Qty: 2 0RF Rx Instructions: as a single dose (DME) OneTouch Verio test strips Strip See Rx Instructions .ROUTE .MEDSUPPLY Qty: 300 0RF Rx Instructions: three times daily pantoprazole [Protonix] 40 mg tablet,delayed release (DR/EC) 40 mg PO BID Qty: 30 0RF metoclopramide HCl 5 mg tablet 5 mg PO TIDWMEAL 30 Days Qty: 90 11RF clopidogrel [Plavix] 75 mg tablet 75 mg PO DAILY metformin 500 mg tablet 1,000 mg PO BID Qty: 180 1RF Rx Instructions: with morning & evening meals bupropion HCl [Wellbutrin XL] 150 mg tablet extended release 24 hr 150 mg PO QAM Qty: 90 3RF citalopram 40 mg tablet 40 mg PO HS Qty: 90 3RF Rx Instructions: TAKE 1 TABLET BY MOUTH EVERY DAY aspirin 81 mg Tablet,Delayed Release (Dr/Ec) 81 mg PO QAM Qty: 30 0RF acetaminophen 500 mg tablet 1,000 mg PO TID PRN (Reason: qasim) 7 Days Qty: 42 0RF ondansetron 4 mg tablet,disintegrating 4 mg PO Q8H PRN (Reason: nausea and vomiting) Qty: 30 0RF metoprolol succinate 25 mg tablet extended release 24 hr 12.5 mg PO DAILY atorvastatin 80 mg tablet 80 mg PO HS Qty: 90 3RF fenofibrate 160 mg tablet 160 mg PO DAILY Qty: 90 2RF trazodone 100 mg tablet 200 mg PO HS Qty: 180 1RF insulin lispro [Humalog U-100 Insulin] 100 unit/mL solution 1 sliding scale dose subcut USEASDIRECTD MDD 60 Qty: 60 0RF Rx Instructions: Dx Code E11.9 Type 2 Diabetes lorazepam 1 mg tablet 1 mg PO QHS Qty: 90 0RF levothyroxine [Levo-T] 25 mcg tablet 25 mcg PO DAILY Qty: 90 3RF levothyroxine 200 mcg tablet 200 mcg PO DAILY Qty: 90 3RF Follow-up/Referrals: Jose Zuniga APRN [Primary Care Provider, Internal Medicine]
--- NOTE | 2025-04-08 22:23 | ECG_ITS ---
Test Date: 2025-04-08 22:30:35 Measurements Intervals [place] Rate: 88 P: 19 WI: 161 QRS: 23 QRSD: 85 T: 52 QT: 373 QTc: 453 Interpretive Statements SINUS RHYTHM NONSPECIFIC T-WAVE ABNORMALITY- ANTERIOR LEADS BASELINE ARTIFACT- V1 BORDERLINE ECG Compared to ECG 04/08/2025 19:16:58 NO SIGNIFICANT CHANGE Electronically Signed On 04-09-2025 06:22:28 COD CLERK by Baron Bowers D.O.
[2025-04-08 22:49] LABS: Troponin I < 0.012 ng/mL (0.000-0.034)
[2025-04-09 00:41] VITALS: BP 109/57; PULSE 88; RESP 16; TEMP 36.7; O2SAT 94
== END 2025-04-09 00:43 | disposition home or self-care (01) ==
PROVIDERS: Emergency Provider Student in an Organized Health Care Education/Training Program; PCP Nurse Practitioner
DX: R07.89 Other chest pain (principal); F17.210 Nicotine dependence, cigarettes, uncomplicated; I25.2 Old myocardial infarction; E11.43 Type 2 diabetes mellitus with diabetic autonomic (poly)neuropathy; K31.84 Gastroparesis; E78.1 Pure hyperglyceridemia; E78.3 Hyperchylomicronemia; E28.2 Polycystic ovarian syndrome; E06.3 Autoimmune thyroiditis; K86.1 Other chronic pancreatitis; K21.9 Gastro-esophageal reflux disease without esophagitis; F41.9 Anxiety disorder, unspecified; Z95.5 Presence of coronary angioplasty implant and graft; Z90.711 Acquired absence of uterus with remaining cervical stump; Z79.02 Long term (current) use of antithrombotics/antiplatelets; Z79.899 Other long term (current) drug therapy; Z79.82 Long term (current) use of aspirin; Z79.4 Long term (current) use of insulin; R94.31 Abnormal electrocardiogram [ECG] [EKG]
CPT/HCPCS: 36415; 71046; 80053; 83690; 84484; 85025; 85610; 85730; 93005; 99284